=== PATIENT | male | born 1960 ===

== ENCOUNTER 2021-03-08 19:29 | Inpatient (IN) | payer OTHER ==
[2021-03-08] MEDS ORDERED: cefTRIAXone/NS 2 GM/100 ML 2 GM/100 ML BAG IV ONE (20:15)
[2021-03-08] MEDS ORDERED: AZITHROMYCIN/NS 500 MG/250 ML 500 MG/250 ML BAG IV ONE (20:15)
[2021-03-08] MEDS ORDERED: SODIUM CHLORIDE 0.9% 500 ML 500 ML IV ONE (20:15)
[2021-03-08 21:07] LABS: Hematocrit 49.2 % (35.5-45.6); Hemoglobin 15.7 gm/dl (11.8-15.2); Mean Corpuscular HGB Conc 32 % (32-34); Mean Corpuscular Volume 90 fl (84-94); Platelet Count 365 K/mm3 (140-440); Red Blood Count 5.44 M/mm3 (3.65-5.03); Red Cell Distribution Width 14.3 % (13.2-15.2)
[2021-03-08 21:18] LABS: INR 1.17 (0.87-1.13)
--- NOTE | 2021-03-08 21:19 | XRay Report ---
CHEST 1 VIEW 03/08/2021 8:12 PM INDICATION / CLINICAL INFORMATION: hypoxia. COMPARISON: None available. FINDINGS: SUPPORT DEVICES: None. HEART / MEDIASTINUM: No significant abnormality. LUNGS / PLEURA: Mid/lower lung airspace opacities are present bilaterally. No significant pleural eff usion. No pneumothorax. ADDITIONAL FINDINGS: No significant additional findings. IMPRESSION: Suspected bilateral pneumonia. Continued radiographic follow-up to resolution is recommended. Signer Name: Sergio Gutierrez MD Signed: 03/08/2021 9:14 PM Workstation Name: [id number]
--- NOTE | 2021-03-08 21:31 | Emergency Department Report ---
ED Shortness of Breath HPI - General Stated Complaint: Time Seen by Provider: 03/08/21 20:10 - History of Present Illness Initial Comments: Patient is a 61-year-old male with past medical history of hypertension and diabetes who is presenting with shortness of breath and hypoxia. Patient has been feeling ill for approximately a week. Patient was confused and paramedics were called. Patient's oxygen saturation levels were in the low 70s. 88-90% O2 sat on a NRB mask. Patient does state he has had some cough was unable to give much additional history on arrival. Denies nausea vomiting diarrhea. Patient has not had a COVID test - Related Data Allergies Allergy/AdvReac Type Severity Reaction Status Date / Time No Known Allergies Allergy Verified 03/08/21 20:25 ED Review of Systems ROS: Stated complaint: Other details as noted in HPI Comment: All other systems reviewed and negative ED Physical Exam - General General appearance: alert, in distress, other (mild confusion) - Head Head exam: Present: atraumatic, normocephalic - Eye Eye exam: Present: normal appearance, PERRL, EOMI - ENT ENT exam: Present: mucous membranes moist - Neck Neck exam: Present: normal inspection - Respiratory Respiratory exam: Present: respiratory distress, rhonchi. Absent: normal lung sounds bilaterally, wheezes, rales - Cardiovascular Cardiovascular Exam: Present: normal rhythm, tachycardia, normal heart sounds. Absent: systolic murmur, diastolic murmur, rubs, gallop - GI/Abdominal GI/Abdominal exam: Present: soft, normal bowel sounds. Absent: distended, tenderness, guarding - Rectal Rectal exam: Present: deferred - Extremities Exam Extremities exam: Present: normal inspection - Back Exam Back exam: Present: normal inspection - Neurological Exam Neurological exam: Present: alert, oriented X3 - Psychiatric Psychiatric exam: Present: normal affect, normal mood - Skin Skin exam: Present: warm, dry, intact, normal color. Absent: rash ED Course Vital Signs 03/08/21 19:30 Temperature 98.4 F Pulse Rate 108 H Respiratory 30 H Rate Blood Pressure 130/86 [Right] O2 Sat by Pulse 88 Oximetry ED Medical Decision Making - Lab Data Result diagrams: 03/08/21 20:24 03/08/21 20:24 Lab Results 03/08/21 03/08/21 03/08/21 Range/Units 20:24 20:24 20:24 WBC 22.6 H (4.5-11.0) K/mm3 RBC 5.44 H (3.65-5.03) M/mm3 Hgb 15.7 H (11.8-15.2) gm/dl Hct 49.2 H (35.5-45.6) % MCV 90 (84-94) fl MCH 29 (28-32) pg MCHC 32 (32-34) % RDW 14.3 (13.2-15.2) % Plt Count 365 (140-440) K/mm3 Add Manual Diff Complete Total Counted 100 Seg Neuts % (Manual) 83.0 H (40.0-70.0) % Band Neutrophils % 0 % Lymphocytes % (Manual) 9.0 L (13.4-35.0) % Reactive Lymphs % (Man) 0 % Monocytes % (Manual) 8.0 H (0.0-7.3) % Eosinophils % (Manual) 0 (0.0-4.3) % Basophils % (Manual) 0 (0.0-1.8) % Metamyelocytes % 0 % Myelocytes % 0 % Promyelocytes % 0 % Blast Cells % 0 % Nucleated RBC % Not Reportable Seg Neutrophils # Man 18.8 H (1.8-7.7) K/mm3 Band Neutrophils # 0.0 K/mm3 Lymphocytes # (Manual) 2.0 (1.2-5.4) K/mm3 Abs React Lymphs (Man) 0.0 K/mm3 Monocytes # (Manual) 1.8 H (0.0-0.8) K/mm3 Eosinophils # (Manual) 0.0 (0.0-0.4) K/mm3 Basophils # (Manual) 0.0 (0.0-0.1) K/mm3 Metamyelocytes # 0.0 K/mm3 Myelocytes # 0.0 K/mm3 Promyelocytes # 0.0 K/mm3 Blast Cells # 0.0 K/mm3 WBC Morphology Not Reportable Hypersegmented Neuts Not Reportable Hyposegmented Neuts Not Reportable Hypogranular Neuts Not Reportable Smudge Cells Not Reportable Toxic Granulation Not Reportable Toxic Vacuolation Not Reportable Dohle Bodies Not Reportable Pelger-Huet Anomaly Not Reportable Mely Rods Not Reportable Platelet Estimate Not Reportable Clumped Platelets Not Reportable Plt Clumps, EDTA Not Reportable Large Platelets Not Reportable Giant Platelets Not Reportable Platelet Satelliting Not Reportable Plt Morphology Comment Not Reportable RBC Morphology Normal Dimorphic RBCs Not Reportable Polychromasia Not Reportable Hypochromasia Not Reportable Poikilocytosis Not Reportable Anisocytosis Not Reportable Microcytosis Not Reportable Macrocytosis Not Reportable Spherocytes Not Reportable Pappenheimer Bodies Not Reportable Sickle Cells Not Reportable Target Cells Not Reportable Tear Drop Cells Not Reportable Ovalocytes Not Reportable Helmet Cells Not Reportable [place] Bodies Not Reportable [place] Rings Not Reportable [place] Cells Not Reportable Bite Cells Not Reportable Crenated Cell Not Reportable Elliptocytes Not Reportable Acanthocytes (Spur) Not Reportable Rouleaux Not Reportable Hemoglobin C Crystals Not Reportable Schistocytes Not Reportable Malaria parasites Not Reportable Shaheen Bodies Not Reportable Hem Pathologist Commnt No PT 16.1 H (12.2-14.9) Sec. INR 1.17 H (0.87-1.13) APTT 28.0 (24.2-36.6) Sec. D-Dimer > 71318 H (0-234) ng/mlDDU Sodium 136 L (137-145) mmol/L Potassium 4.0 (3.6-5.0) mmol/L Chloride 93.9 L (98-107) mmol/L Carbon Dioxide 27 (22-30) mmol/L Anion Gap 19 mmol/L BUN 29 H (9-20) mg/dL Creatinine 1.3 (0.8-1.3) mg/dL Estimated GFR 56 ml/min BUN/Creatinine Ratio 22 % Glucose 208 H (75-100) mg/dL Lactic Acid (0.7-2.0) mmol/L Calcium 9.8 (8.4-10.2) mg/dL Ferritin (30.0-300.0) ng/mL Total Bilirubin 0.80 (0.1-1.2) mg/dL AST 34 (5-40) units/L ALT 35 (7-56) units/L Alkaline Phosphatase 96 (35-129) units/L Lactate Dehydrogenase 624 H (91-180) units/L C-Reactive Protein 18.00 H (0.00-1.30) mg/dL NT-Pro-B Natriuret Pep 1053 H (0-900) pg/mL Total Protein 8.0 (6.3-8.2) g/dL Albumin 3.9 (3.9-5) g/dL Albumin/Globulin Ratio 1.0 % 03/08/21 03/08/21 Range/Units 20:24 20:24 WBC (4.5-11.0) K/mm3 RBC (3.65-5.03) M/mm3 Hgb (11.8-15.2) gm/dl Hct (35.5-45.6) % MCV (84-94) fl MCH (28-32) pg MCHC (32-34) % RDW (13.2-15.2) % Plt Count (140-440) K/mm3 Add Manual Diff Total Counted Seg Neuts % (Manual) (40.0-70.0) % Band Neutrophils % % Lymphocytes % (Manual) (13.4-35.0) % Reactive Lymphs % (Man) % Monocytes % (Manual) (0.0-7.3) % Eosinophils % (Manual) (0.0-4.3) % Basophils % (Manual) (0.0-1.8) % Metamyelocytes % % Myelocytes % % Promyelocytes % % Blast Cells % % Nucleated RBC % Seg Neutrophils # Man (1.8-7.7) K/mm3 Band Neutrophils # K/mm3 Lymphocytes # (Manual) (1.2-5.4) K/mm3 Abs React Lymphs (Man) K/mm3 Monocytes # (Manual) (0.0-0.8) K/mm3 Eosinophils # (Manual) (0.0-0.4) K/mm3 Basophils # (Manual) (0.0-0.1) K/mm3 Metamyelocytes # K/mm3 Myelocytes # K/mm3 Promyelocytes # K/mm3 Blast Cells # K/mm3 WBC Morphology Hypersegmented Neuts Hyposegmented Neuts Hypogranular Neuts Smudge Cells Toxic Granulation Toxic Vacuolation Dohle Bodies Pelger-Huet Anomaly Mely Rods Platelet Estimate Clumped Platelets Plt Clumps, EDTA Large Platelets Giant Platelets Platelet Satelliting Plt Morphology Comment RBC Morphology Dimorphic RBCs Polychromasia Hypochromasia Poikilocytosis Anisocytosis Microcytosis Macrocytosis Spherocytes Pappenheimer Bodies Sickle Cells Target Cells Tear Drop Cells Ovalocytes Helmet Cells [place] Bodies [place] Rings Minerv[place] Cells Bite Cells Crenated Cell Elliptocytes Acanthocytes (Spur) Rouleaux Hemoglobin C Crystals Schistocytes Malaria parasites Shaheen Bodies Hem Pathologist Commnt PT (12.2-14.9) Sec. INR (0.87-1.13) APTT (24.2-36.6) Sec. D-Dimer (0-234) ng/mlDDU Sodium (137-145) mmol/L Potassium (3.6-5.0) mmol/L Chloride (98-107) mmol/L Carbon Dioxide (22-30) mmol/L Anion Gap mmol/L BUN (9-20) mg/dL Creatinine (0.8-1.3) mg/dL Estimated GFR ml/min BUN/Creatinine Ratio % Glucose (75-100) mg/dL Lactic Acid 2.10 H* (0.7-2.0) mmol/L Calcium (8.4-10.2) mg/dL Ferritin 877.5 H (30.0-300.0) ng/mL Total Bilirubin (0.1-1.2) mg/dL AST (5-40) units/L ALT (7-56) units/L Alkaline Phosphatase (35-129) units/L Lactate Dehydrogenase (91-180) units/L C-Reactive Protein (0.00-1.30) mg/dL NT-Pro-B Natriuret Pep (0-900) pg/mL Total Protein (6.3-8.2) g/dL Albumin (3.9-5) g/dL Albumin/Globulin Ratio % - EKG Data -: EKG Interpreted by Ct - EKG Data 03/08/21 21:30 EKG shows a sinus rhythm at a rate of 94. [place] is normal intervals are normal. Evidence of LVH. No ST segment elevation or depression. Time of interpretation 2114 - Radiology Data CHEST 1 VIEW 03/08/2021 8:12 PM INDICATION / CLINICAL INFORMATION: hypoxia. COMPARISON: None available. FINDINGS: SUPPORT DEVICES: None. HEART / MEDIASTINUM: No significant abnormality. LUNGS / PLEURA: Mid/lower lung airspace opacities are present bilaterally. No significant pleural effusion. No pneumothorax. ADDITIONAL FINDINGS: No significant additional findings. IMPRESSION: Suspected bilateral pneumonia. Continued radiographic follow-up to resolution is recommended. Signer Name: Sergio Gutierrez MD Signed: 03/08/2021 9:14 PM Workstation Name: [id number] CTA chest with contrast INDICATION : Hypoxia, significantly elevated D-dimer. TECHNIQUE: Axial imaging performed through the chest, with contrast bolus timing set to maximize opacification of the pulmonary arteries. 3-plane MIP reformatted images were obtained. All CT scans at this location are performed using CT dose reduction for ALARA by means of automated exposure control. 100 mL of intravenous contrast administered. COMPARISON: None FINDINGS: Bolus/PTE: Contrast bolus timing is adequate; however, there is considerable motion artifact which limits the quality of the exam. No definite filling defect identified to suggest PTE. Mediastinum: Normal heart size. Shoddy mediastinal lymph nodes. Lungs: Severe patchy multifocal groundglass airspace disease. Upper abdomen: Limited imaging of the upper abdomen shows nothing acute. Bones: Degenerative changes in the spine with nothing acute. IMPRESSION: 1. Motion limited exam with no gross PTE identified. 2. Severe patchy multifocal groundglass airspace disease, most commonly seen with an atypical etiology such as viral pneumonia. Signer Name: Ty Callahan MD Signed: 03/09/2021 12:41 AM Workstation Name: [id number] - Medical Decision Making Patient hypoxic even on a nonrebreather at 88%. Patient placed on BiPAP and his gait has a better O2 sat and his alertness is improved as well. Patient with by lateral patchy infiltrates in all lobes consistent with COVID-pneumonia. COVID testing will be done in the morning. Patient given Rocephin azithromycin and low-dose Decadron since he is diabetic. Patient to be admitted to the hospital service. Critical Care Time: Yes (30) Critical care attestation.: If time is entered above; I have spent that time in minutes in the direct care of this critically ill patient, excluding procedure time. ED Disposition Clinical Impression: Acute respiratory distress, Hypoxia, Suspected COVID-19 virus infection Disposition: ADMITTED INPATIENT Is pt being admited?: Yes Does the pt Need Aspirin: No Condition: Stable Time of Disposition: 00:54
[2021-03-08 21:50] LABS: Basophils % (Manual) 0 % (0.0-1.8); Eosinophils % (Manual) 0 % (0.0-4.3); RBC Morphology Normal; Total Cells Counted 100
[2021-03-08 21:52] LABS: Albumin 3.9 g/dL (3.9-5); Calcium 9.8 mg/dL (8.4-10.2)
[2021-03-08] MEDS ORDERED: SODIUM CHLORIDE 0.9% 1000 ML 1,000 ML IV ONE (22:35)
--- NOTE | 2021-03-09 00:45 | Cat Scan Report ---
CTA chest with contrast INDICATION : Hypoxia, significantly elevated D-dimer. TECHNIQUE: Axial imaging performed through the chest, with contrast bolus timing set to maximize opa cification of the pulmonary arteries. 3-plane MIP reformatted images were obtained. All CT scans at this location are performed using CT dose reduction for ALARA by means of automated exposure control. 100 mL of intravenous contrast administered. COMPARISON: None FINDINGS: Bolus/PTE: Contrast bolus timing is adequate; however, there is considerable motion artifact which l imits the quality of the exam. No definite filling defect identified to suggest PTE. Mediastinum: Normal heart size. Shoddy mediastinal lymph nodes. Lungs: Severe patchy multifocal groundglass airspace disease. Upper abdomen: Limited imaging of the upper abdomen shows nothing acute. Bones: Degenerative changes in the spine with nothing acute. IMPRESSION: 1. Motion limited exam with no gross PTE identified. 2. Severe patchy multifocal groundglass airspace disease, most commonly seen with an atypical etiolog y such as viral pneumonia. Signer Name: Ty Callahan MD Signed: 03/09/2021 12:41 AM Workstation Name: [id number]
[2021-03-09] MEDS ORDERED: dexAMETHasone 20 MG/5 ML VIAL IV ONE (00:51)
[2021-03-09] MEDS ORDERED: HYDROmorphone 1 MG/1 ML INJ IV PRN (01:26)
[2021-03-09] MEDS ORDERED: ALBUTEROL 2.5 MG/3 ML NEBU IH PRN (01:26)
[2021-03-09] MEDS ORDERED: MORPHINE 2 MG/1 ML INJ IV PRN (01:26)
[2021-03-09] MEDS ORDERED: DEXTROSE 50% IN WATER (25GM) 50 ML SYRINGE IV PRN (01:26)
--- NOTE | 2021-03-09 01:34 | History and Physical Report ---
History of Present Illness Date of examination: 03/09/21 Date of admission: 03/09/21 Chief complaint: Shortness of breath History of present illness: 61-year-old male with past medical history of hypertension and diabetes was brought to the emergency room because of shortness of breath and hypoxia. Patient has been feeling ill for approximately a week. Patient was confused and paramedics were called. Patient's oxygen saturation levels were in the low 70s. 88-90% O2 sat on a NRB mask. Patient does state he has had some cough was unable to give much additional history on arrival. Denies nausea vomiting diarrhea. Patient has not had a COVID test Patient hypoxic even on a nonrebreather at 88%. Patient placed on BiPAP and his gait has a better O2 sat and his alertness is improved as well. Patient with by lateral patchy infiltrates in all lobes consistent with COVID-pneumonia. COVID testing is ordered. Patient given Rocephin azithromycin and low-dose Decadron since he is diabetic. Patient to be admitted to the hospital service. Past History Past Medical History: diabetes, hypertension Medications and Allergies Allergies Allergy/AdvReac Type Severity Reaction Status Date / Time No Known Allergies Allergy Verified 03/08/21 20:25 Review of Systems All systems: negative Constitutional: malaise, lethargy Cardiovascular: shortness of breath, dyspnea on exertion Respiratory: cough, shortness of breath, dyspnea on exertion Exam - Constitutional Vitals: Temp Pulse Resp BP Pulse Ox 98.4 F 108 H 30 H 130/86 88 03/08/21 19:30 03/08/21 19:30 03/08/21 19:30 03/08/21 19:30 03/08/21 19:30 General appearance: Present: mild distress, well-nourished - EENT Eyes: Present: PERRL ENT: hearing intact, clear oral mucosa - Neck Neck: Present: supple, normal ROM - Respiratory Respiratory effort: normal Respiratory: bilateral: diminished - Cardiovascular Heart Sounds: Present: S1 & S2. Absent: rub, click - Extremities Extremities: pulses symmetrical, No edema Peripheral Pulses: within normal limits - Abdominal General gastrointestinal: Present: soft, non-tender, non-distended, normal bowel sounds Male genitourinary: Present: normal - Integumentary Integumentary: Present: clear, warm, dry - Musculoskeletal Musculoskeletal: gait normal, strength equal bilaterally - Psychiatric Psychiatric: appropriate mood/affect, intact judgment & insight - Neurologic Neurologic: CNII-XII intact, moves all extremities Results - Labs CBC & Chem 7: 03/08/21 20:24 03/08/21 20:24 Labs: Laboratory Last Values WBC 22.6 K/mm3 (4.5-11.0) H 03/08/21 20:24 RBC 5.44 M/mm3 (3.65-5.03) H 03/08/21 20:24 Hgb 15.7 gm/dl (11.8-15.2) H 03/08/21 20:24 Hct 49.2 % (35.5-45.6) H 03/08/21 20:24 MCV 90 fl (84-94) 03/08/21 20:24 MCH 29 pg (28-32) 03/08/21 20:24 MCHC 32 % (32-34) 03/08/21 20:24 RDW 14.3 % (13.2-15.2) 03/08/21 20:24 Plt Count 365 K/mm3 (140-440) 03/08/21 20:24 Add Manual Diff Complete 03/08/21 20:24 Total Counted 100 03/08/21 20:24 Seg Neuts % (Manual) 83.0 % (40.0-70.0) H 03/08/21 20:24 Band Neutrophils % 0 % 03/08/21 20:24 Lymphocytes % (Manual) 9.0 % (13.4-35.0) L 03/08/21 20:24 Reactive Lymphs % (Man) 0 % 03/08/21 20:24 Monocytes % (Manual) 8.0 % (0.0-7.3) H 03/08/21 20:24 Eosinophils % (Manual) 0 % (0.0-4.3) 03/08/21 20:24 Basophils % (Manual) 0 % (0.0-1.8) 03/08/21 20:24 Metamyelocytes % 0 % 03/08/21 20:24 Myelocytes % 0 % 03/08/21 20:24 Promyelocytes % 0 % 03/08/21 20:24 Blast Cells % 0 % 03/08/21 20:24 Nucleated RBC % Not Reportable 03/08/21 20:24 Seg Neutrophils # Man 18.8 K/mm3 (1.8-7.7) H 03/08/21 20:24 Band Neutrophils # 0.0 K/mm3 03/08/21 20:24 Lymphocytes # (Manual) 2.0 K/mm3 (1.2-5.4) 03/08/21 20:24 Abs React Lymphs (Man) 0.0 K/mm3 03/08/21 20:24 Monocytes # (Manual) 1.8 K/mm3 (0.0-0.8) H 03/08/21 20:24 Eosinophils # (Manual) 0.0 K/mm3 (0.0-0.4) 03/08/21 20:24 Basophils # (Manual) 0.0 K/mm3 (0.0-0.1) 03/08/21 20:24 Metamyelocytes # 0.0 K/mm3 03/08/21 20:24 Myelocytes # 0.0 K/mm3 03/08/21 20:24 Promyelocytes # 0.0 K/mm3 03/08/21 20:24 Blast Cells # 0.0 K/mm3 03/08/21 20:24 WBC Morphology Not Reportable 03/08/21 20:24 Hypersegmented Neuts Not Reportable 03/08/21 20:24 Hyposegmented Neuts Not Reportable 03/08/21 20:24 Hypogranular Neuts Not Reportable 03/08/21 20:24 Smudge Cells Not Reportable 03/08/21 20:24 Toxic Granulation Not Reportable 03/08/21 20:24 Toxic Vacuolation Not Reportable 03/08/21 20:24 Dohle Bodies Not Reportable 03/08/21 20:24 Pelger-Huet Anomaly Not Reportable 03/08/21 20:24 Mely Rods Not Reportable 03/08/21 20:24 Platelet Estimate Not Reportable 03/08/21 20:24 Clumped Platelets Not Reportable 03/08/21 20:24 Plt Clumps, EDTA Not Reportable 03/08/21 20:24 Large Platelets Not Reportable 03/08/21 20:24 Giant Platelets Not Reportable 03/08/21 20:24 Platelet Satelliting Not Reportable 03/08/21 20:24 Plt Morphology Comment Not Reportable 03/08/21 20:24 RBC Morphology Normal 03/08/21 20:24 Dimorphic RBCs Not Reportable 03/08/21 20:24 Polychromasia Not Reportable 03/08/21 20:24 Hypochromasia Not Reportable 03/08/21 20:24 Poikilocytosis Not Reportable 03/08/21 20:24 Anisocytosis Not Reportable 03/08/21 20:24 Microcytosis Not Reportable 03/08/21 20:24 Macrocytosis Not Reportable 03/08/21 20:24 Spherocytes Not Reportable 03/08/21 20:24 Pappenheimer Bodies Not Reportable 03/08/21 20:24 Sickle Cells Not Reportable 03/08/21 20:24 Target Cells Not Reportable 03/08/21 20:24 Tear Drop Cells Not Reportable 03/08/21 20:24 Ovalocytes Not Reportable 03/08/21 20:24 Helmet Cells Not Reportable 03/08/21 20:24 [place] Bodies Not Reportable 03/08/21 20:24 [place] Rings Not Reportable 03/08/21 20:24 [place] Cells Not Reportable 03/08/21 20:24 Bite Cells Not Reportable 03/08/21 20:24 Crenated Cell Not Reportable 03/08/21 20:24 Elliptocytes Not Reportable 03/08/21 20:24 Acanthocytes (Spur) Not Reportable 03/08/21 20:24 Rouleaux Not Reportable 03/08/21 20:24 Hemoglobin C Crystals Not Reportable 03/08/21 20:24 Schistocytes Not Reportable 03/08/21 20:24 Malaria parasites Not Reportable 03/08/21 20:24 Shaheen Bodies Not Reportable 03/08/21 20:24 Hem Pathologist Commnt No 03/08/21 20:24 PT 16.1 Sec. (12.2-14.9) H 03/08/21 20:24 INR 1.17 (0.87-1.13) H 03/08/21 20:24 APTT 28.0 Sec. (24.2-36.6) 03/08/21 20:24 D-Dimer > 69348 ng/mlDDU (0-234) H 03/08/21 20:24 Sodium 136 mmol/L (137-145) L 03/08/21 20:24 Potassium 4.0 mmol/L (3.6-5.0) 03/08/21 20:24 Chloride 93.9 mmol/L (98-107) L 03/08/21 20:24 Carbon Dioxide 27 mmol/L (22-30) 03/08/21 20:24 Anion Gap 19 mmol/L 03/08/21 20:24 BUN 29 mg/dL (9-20) H 03/08/21 20:24 Creatinine 1.3 mg/dL (0.8-1.3) 03/08/21 20:24 Estimated GFR 56 ml/min 03/08/21 20:24 BUN/Creatinine Ratio 22 % 03/08/21 20:24 Glucose 208 mg/dL (75-100) H 03/08/21 20:24 Lactic Acid 1.90 mmol/L (0.7-2.0) 03/08/21 23:51 Calcium 9.8 mg/dL (8.4-10.2) 03/08/21 20:24 Ferritin 877.5 ng/mL (30.0-300.0) H 03/08/21 20:24 Total Bilirubin 0.80 mg/dL (0.1-1.2) 03/08/21 20:24 AST 34 units/L (5-40) 03/08/21 20:24 ALT 35 units/L (7-56) 03/08/21 20:24 Alkaline Phosphatase 96 units/L (35-129) 03/08/21 20:24 Lactate Dehydrogenase 624 units/L (91-180) H 03/08/21 20:24 C-Reactive Protein 18.00 mg/dL (0.00-1.30) H 03/08/21 20:24 NT-Pro-B Natriuret Pep 1053 pg/mL (0-900) H 03/08/21 20:24 Total Protein 8.0 g/dL (6.3-8.2) 03/08/21 20:24 Albumin 3.9 g/dL (3.9-5) 03/08/21 20:24 Albumin/Globulin Ratio 1.0 % 03/08/21 20:24 - Imaging and Cardiology Chest x-ray: report reviewed Assessment and Plan VTE prophylaxis?: Chemical Plan of care discussed with patient/family: Yes - Patient Problems (1) Acute respiratory failure Current Visit: Yes Status: Acute Plan to address problem: Admit the patient to the [facility]. Patient is on BiPAP. DuoNeb nebulizer every 4 hours. Albuterol by nebulizer every 4 hours as needed. Rocephin 2 g IV daily. Zithromax 500 mg IV daily. Decadron 6 mg IV daily. Blood and sputum culture. We will send a COVID PCR. Follow COVID inflammatory marker. We will consult pulmonary as well as infectious disease for further evaluation and treatment (2) Suspected COVID-19 virus infection Current Visit: Yes Status: Acute Plan to address problem: Rocephin 2 g IV daily. Zithromax 500 mg IV daily. Decadron 6 mg IV daily. Blood and sputum culture. We will send a COVID PCR. Follow COVID inflammatory marker. We will consult pulmonary as well as infectious disease for further evaluation and treatment (3) Diabetes Current Visit: Yes Status: Acute Plan to address problem: 1800 kcal ADA diet. Humalog sliding scale moderate reviewed with Accu-Chek before meals and at bedtime. Continue home medication. Diabetic education (4) Hypertension Current Visit: Yes Status: Acute Plan to address problem: Hydralazine 10 mg IV every 6 hours as needed. We continued the home medication (5) Hypoxia Current Visit: Yes Status: Acute Plan to address problem: Patient is on BiPAP. DuoNeb nebulizer every 4 hours. Albuterol by nebulizer every 4 hours as needed. Decadron 6 mg IV daily. We will send a COVID PCR. Follow COVID inflammatory marker. We will consult pulmonary as well as infectious disease for further evaluation and treatment (6) DVT prophylaxis Current Visit: Yes Status: Acute Plan to address problem: Heparin 5000 units subcu every 8 hours for DVT prophylaxis. Pepcid 20 mg p.o. twice daily for GI prophylaxis. Patient is a full code
[2021-03-09] MEDS ORDERED: cefTRIAXone/NS 2 GM/100 ML 2 GM/100 ML BAG IV SCH ×2 (02:00→22:00)
[2021-03-09] MEDS ORDERED: dexAMETHasone 4 MG/ML VIAL ONE (03:31)
[2021-03-09] MEDS: IPRATROPIUM/ALBUTEROL SULFATE 3 ML AMPUL.NEB IH SCH ×4 (03:45→20:55)
[2021-03-09 04:17] LABS: Bacteria,Urine 1+ /HPF (Negative); Bilirubin,Urine NEG (Negative); Blood,Urine MOD (Negative); Color,Urine Yellow (Yellow); Mucus,Urine FEW /HPF
[2021-03-09] MEDS ORDERED: HEPARIN 5,000 UNIT/1 ML VIAL SUB-Q SCH (06:00)
[2021-03-09] MEDS: INSULIN LISPRO 100 UNIT/ML SUB-Q SCH ×4 (07:54→21:17)
[2021-03-09] MEDS ORDERED: AZITHROMYCIN/NS 500 MG/250 ML 500 MG/250 ML BAG IV SCH (10:00)
[2021-03-09] MEDS: ENOXAPARIN 100 MG/1 ML INJ SUB-Q SCH ×2 (10:54→21:16)
[2021-03-09] MEDS: dexAMETHasone 4 MG/ML VIAL IV SCH (10:54)
[2021-03-09] MEDS: FAMOTIDINE 20 MG TAB PO SCH ×2 (10:55→21:17)
--- NOTE | 2021-03-09 10:59 | Electrocardiograph Report ---
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
[2021-03-09] MEDS ORDERED: REMDESIVIR 200 MG in SODIUM CHLORIDE 0.9% 250ML 250 ML IV ONE (14:40)
--- NOTE | 2021-03-09 14:40 | Consultation ---
History of Present Illness - Reason for Consult Consult date: 03/09/21 COVID-19 PUI Requesting physician: ROCIO TRISTAN - History of Present Illness The patient is a 61-year-old male with diabetes, hypertension admitted to the hospital with complaints of shortness of breath and feeling weak for the last 1 week. Upon eval by paramedics, noted to be hypoxic and confused, was placed on nonrebreather and brought to ER. Chest x-ray showed bilateral patchy infiltrates concerning for COVID-19 pneumonia. Patient has been hospitalized. No fever. Currently placed on BiPAP. Initial labs showed WBC 22.6, creatinine 1.3, ferritin 877, CRP 18.0, LDH 624, procalcitonin 0.18. D-dimer >10k. CTA negative for pulmonary embolism, severe patchy groundglass opacities. Review of Systems: reviewed in the chart, unable to obtain, minimize risk of transmission Past History Past Medical History: diabetes, hypertension Family history: hypertension Medications and Allergies Allergies Allergy/AdvReac Type Severity Reaction Status Date / Time No Known Allergies Allergy Verified 03/08/21 20:25 Active Meds: Active Medications Acetaminophen (Acetaminophen 325 Mg Tab) 650 mg PO Q4H PRN PRN Reason: Pain MILD(1-3)/Fever >100.5/RAYO Albuterol (Albuterol 2.5 Mg/3 Ml Nebu) 2.5 mg IH Q4HRT PRN PRN Reason: Shortness Of Breath Albuterol/Ipratropium (Ipratropium/Albuterol Sulfate 3 Ml Ampul.Neb) 1 ampul IH Q6HRT [facility] Last Admin: 03/09/21 09:31 Dose: 1 ampul Azithromycin (Azithromycin 250 Mg Tab) 500 mg PO QHS [facility] Stop: 03/12/21 22:01 Dexamethasone (Dexamethasone 4 Mg/Ml Vial) 6 mg IV DAILY [facility] Stop: 03/18/21 10:01 Last Admin: 03/09/21 10:54 Dose: 6 mg Dextrose (Dextrose 50% In Water (25gm) 50 Ml Syringe) 0 ml IV Q30MIN PRN; Protocol PRN Reason: Hypoglycemia Enoxaparin Sodium (Enoxaparin 100 Mg/1 Ml Inj) 100 mg SUB-Q Q12HR [facility]; Protocol Last Admin: 03/09/21 10:54 Dose: 100 mg Famotidine (Famotidine 20 Mg Tab) 20 mg PO BID [facility] Last Admin: 03/09/21 10:55 Dose: Not Given Hydralazine HCl (Hydralazine 20 Mg/1 Ml Inj) 10 mg IV Q6H PRN PRN Reason: Blood Pressure Hydromorphone HCl (Hydromorphone 1 Mg/1 Ml Inj) 0.5 mg IV Q3H PRN PRN Reason: Pain , Severe (7-10) Ceftriaxone Sodium (Rocephin/Ns 2 Gm/100 Ml) 2 gm in 100 mls @ 200 mls/hr IV Q24HR@2200 [facility]; Protocol Insulin Human Lispro (Insulin Lispro 100 Unit/Ml) 0 unit SUB-Q ACHS [facility]; Protocol Last Admin: 03/09/21 14:14 Dose: Not Given Morphine Sulfate (Morphine 2 Mg/1 Ml Inj) 2 mg IV Q4H PRN PRN Reason: Pain, Moderate (4-6) Ondansetron HCl (Ondansetron 4 Mg/2 Ml Inj) 4 mg IV Q8H PRN PRN Reason: Nausea And Vomiting Sodium Chloride (Sodium Chloride 0.9% 10 Ml Flush Syringe) 10 ml IV BID [facility] Last Admin: 03/09/21 10:55 Dose: 10 ml Sodium Chloride (Sodium Chloride 0.9% 10 Ml Flush Syringe) 10 ml IV PRN PRN PRN Reason: LINE FLUSH Physical Examination - Physical Exam Narrative exam: Physical Exam (reviewed in chart to minimize risk of transmission) Constitutional: deferred Head, Ears, Nose: deferred Eyes: deferred Neck: deferred Oral: deferred Cardiovascular: deferred Respiratory: deferred GI: deferred Musculoskeletal: deferred Skin: deferred Hem/Lymphatic: deferred Psych: deferred Neurological: deferred - Constitutional Vitals: Vital Signs Temp Pulse Resp BP Pulse Ox 98.2 F 82 33 H 145/80 87 03/09/21 14:30 03/09/21 14:00 03/09/21 14:00 03/09/21 14:00 03/09/21 14:00 Temperature -Last 24 Hours Temperature 98.2 F Temperature 98.4 F Results - Labs CBC & Chem 7: 03/08/21 20:24 03/08/21 20:24 Labs: Abnormal lab results 03/08/21 03/08/21 03/08/21 Range/Units 20:24 20:24 20:24 WBC 22.6 H (4.5-11.0) K/mm3 RBC 5.44 H (3.65-5.03) M/mm3 Hgb 15.7 H (11.8-15.2) gm/dl Hct 49.2 H (35.5-45.6) % Seg Neuts % (Manual) 83.0 H (40.0-70.0) % Lymphocytes % (Manual) 9.0 L (13.4-35.0) % Monocytes % (Manual) 8.0 H (0.0-7.3) % Seg Neutrophils # Man 18.8 H (1.8-7.7) K/mm3 Monocytes # (Manual) 1.8 H (0.0-0.8) K/mm3 PT 16.1 H (12.2-14.9) Sec. INR 1.17 H (0.87-1.13) D-Dimer > 93693 H (0-234) ng/mlDDU Sodium 136 L (137-145) mmol/L Chloride 93.9 L (98-107) mmol/L BUN 29 H (9-20) mg/dL Glucose 208 H (75-100) mg/dL POC Glucose (70-105) mg/dL Lactic Acid (0.7-2.0) mmol/L Ferritin (30.0-300.0) ng/mL Lactate Dehydrogenase 624 H (91-180) units/L C-Reactive Protein 18.00 H (0.00-1.30) mg/dL NT-Pro-B Natriuret Pep 1053 H (0-900) pg/mL Ur Specific [employer] (1.003-1.030) 03/08/21 03/08/21 03/09/21 Range/Units 20:24 20:24 04:10 WBC (4.5-11.0) K/mm3 RBC (3.65-5.03) M/mm3 Hgb (11.8-15.2) gm/dl Hct (35.5-45.6) % Seg Neuts % (Manual) (40.0-70.0) % Lymphocytes % (Manual) (13.4-35.0) % Monocytes % (Manual) (0.0-7.3) % Seg Neutrophils # Man (1.8-7.7) K/mm3 Monocytes # (Manual) (0.0-0.8) K/mm3 PT (12.2-14.9) Sec. INR (0.87-1.13) D-Dimer (0-234) ng/mlDDU Sodium (137-145) mmol/L Chloride (98-107) mmol/L BUN (9-20) mg/dL Glucose (75-100) mg/dL POC Glucose (70-105) mg/dL Lactic Acid 2.10 H* (0.7-2.0) mmol/L Ferritin 877.5 H (30.0-300.0) ng/mL Lactate Dehydrogenase (91-180) units/L C-Reactive Protein (0.00-1.30) mg/dL NT-Pro-B Natriuret Pep (0-900) pg/mL Ur Specific [employer] 1.041 H (1.003-1.030) 03/09/21 03/09/21 Range/Units 07:46 13:01 WBC (4.5-11.0) K/mm3 RBC (3.65-5.03) M/mm3 Hgb (11.8-15.2) gm/dl Hct (35.5-45.6) % Seg Neuts % (Manual) (40.0-70.0) % Lymphocytes % (Manual) (13.4-35.0) % Monocytes % (Manual) (0.0-7.3) % Seg Neutrophils # Man (1.8-7.7) K/mm3 Monocytes # (Manual) (0.0-0.8) K/mm3 PT (12.2-14.9) Sec. INR (0.87-1.13) D-Dimer (0-234) ng/mlDDU Sodium (137-145) mmol/L Chloride (98-107) mmol/L BUN (9-20) mg/dL Glucose (75-100) mg/dL POC Glucose 191 H 182 H (70-105) mg/dL Lactic Acid (0.7-2.0) mmol/L Ferritin (30.0-300.0) ng/mL Lactate Dehydrogenase (91-180) units/L C-Reactive Protein (0.00-1.30) mg/dL NT-Pro-B Natriuret Pep (0-900) pg/mL Ur Specific [employer] (1.003-1.030) - Imaging and Cardiology Chest x-ray: report reviewed, image reviewed (b/l pna) Assessment and Plan Cultures: SARS CoV2 PCR: Pending 03/08/2021 blood culture: In process A/P: 61-year-old male with diabetes, hypertension admitted to the hospital with complaints of shortness of breath and feeling weak for the last 1 week: #Sepsis secondary to bilateral pneumonia: Highly concerning for COVID-19. Elevated inflammatory markers. WBC 22.6, creatinine 1.3, ferritin 877, CRP 18.0, LDH 624, procalcitonin 0.18. D-dimer >10k. CTA negative for pulmonary embolism, severe patchy groundglass opacities. #Acute hypoxic respiratory failure: Requiring BiPAP #DM #HTN Recs: -IV/PO Dexamethasone x 10 days -High suspicion for COVID-19, ordered IV remdesivir x 5 days -cause of leukocytosis is unclear, would hold off on Actemra at this time -prophylactic anticoagulation based on d-dimer per hospital protocol -procal is low, but high WBC, continue empiric abx for now -trend ferritin, d-dimer, CRP every 2-3 days Sangita Nicole MD, FACP, [facility] ([facility] O: [phone] F: [phone]
[2021-03-09 16:06] LABS: Alanine Aminotransferase 45 units/L (7-56); Albumin 3.4 g/dL (3.9-5); BUN/Creatinine Ratio 24; Blood Urea Nitrogen 29 mg/dL (9-20); Calcium 8.8 mg/dL (8.4-10.2); Hemolysis Index 12
--- NOTE | 2021-03-09 16:39 | Event Note ---
Date: 03/09/21 The patient was seen and evaluated today, and he was found to be hemodynamically stable. The patient is currently on BiPAP for possible COVID-19 pneumonia. He was started on Lovenox 1mg/kg for DVT ppx in the setting of d-dimer > 10,000. Infectious Disease was consulted. The patient is pending a TTE.
--- NOTE | 2021-03-09 17:27 | Consultation ---
History of Present Illness Consult date: 03/09/21 Requesting physician: ROCIO TRISTAN Reason for consult: pneumonia (COVID-19) History of present illness: PCCM CONSULT NOTE (Full dictation # [id number]) Please see dictated notes for full details Past History Past Medical History: diabetes, hypertension Family history: hypertension Medications and Allergies Allergies Allergy/AdvReac Type Severity Reaction Status Date / Time No Known Allergies Allergy Verified 03/08/21 20:25 Active Meds: Active Medications Acetaminophen (Acetaminophen 325 Mg Tab) 650 mg PO Q4H PRN PRN Reason: Pain MILD(1-3)/Fever >100.5/RAYO Albuterol (Albuterol 2.5 Mg/3 Ml Nebu) 2.5 mg IH Q4HRT PRN PRN Reason: Shortness Of Breath Albuterol/Ipratropium (Ipratropium/Albuterol Sulfate 3 Ml Ampul.Neb) 1 ampul IH Q6HRT [facility] Last Admin: 03/09/21 15:40 Dose: 1 ampul Azithromycin (Azithromycin 250 Mg Tab) 500 mg PO QHS [facility] Stop: 03/12/21 22:01 Dexamethasone (Dexamethasone 4 Mg/Ml Vial) 6 mg IV DAILY [facility] Stop: 03/18/21 10:01 Last Admin: 03/09/21 10:54 Dose: 6 mg Dextrose (Dextrose 50% In Water (25gm) 50 Ml Syringe) 0 ml IV Q30MIN PRN; Protocol PRN Reason: Hypoglycemia Enoxaparin Sodium (Enoxaparin 100 Mg/1 Ml Inj) 100 mg SUB-Q Q12HR [facility]; Protocol Last Admin: 03/09/21 10:54 Dose: 100 mg Famotidine (Famotidine 20 Mg Tab) 20 mg PO BID [facility] Last Admin: 03/09/21 10:55 Dose: Not Given Hydralazine HCl (Hydralazine 20 Mg/1 Ml Inj) 10 mg IV Q6H PRN PRN Reason: Blood Pressure Hydromorphone HCl (Hydromorphone 1 Mg/1 Ml Inj) 0.5 mg IV Q3H PRN PRN Reason: Pain , Severe (7-10) Ceftriaxone Sodium (Rocephin/Ns 2 Gm/100 Ml) 2 gm in 100 mls @ 200 mls/hr IV Q24HR@2200 [facility]; Protocol REMDESIVIR 200 mg/ Sodium (Chloride) 250 mls @ 500 mls/hr IV ONCE ONE Stop: 03/09/21 15:09 REMDESIVIR 100 mg/ Sodium (Chloride) 250 mls @ 500 mls/hr IV Q24HR@2100 [facility] Stop: 03/13/21 21:29 Insulin Human Lispro (Insulin Lispro 100 Unit/Ml) 0 unit SUB-Q ACHS [facility]; Protocol Last Admin: 03/09/21 14:14 Dose: Not Given Morphine Sulfate (Morphine 2 Mg/1 Ml Inj) 2 mg IV Q4H PRN PRN Reason: Pain, Moderate (4-6) Ondansetron HCl (Ondansetron 4 Mg/2 Ml Inj) 4 mg IV Q8H PRN PRN Reason: Nausea And Vomiting Sodium Chloride (Sodium Chloride 0.9% 10 Ml Flush Syringe) 10 ml IV BID [facility] Last Admin: 03/09/21 10:55 Dose: 10 ml Sodium Chloride (Sodium Chloride 0.9% 10 Ml Flush Syringe) 10 ml IV PRN PRN PRN Reason: LINE FLUSH Sodium Chloride (Sodium Chloride 0.9% 50 Ml Ivpb) 50 ml IV Q24HR@2100 [facility] Stop: 03/13/21 21:01 Physical Examination Vital signs: Vital Signs Temp Pulse Resp BP Pulse Ox 98.4 F 108 H 30 H 130/86 88 03/08/21 19:30 03/08/21 19:30 03/08/21 19:30 03/08/21 19:30 03/08/21 19:30 Results - Laboratory Findings CBC and BMP: 03/08/21 20:24 03/09/21 15:19 PT/INR, D-dimer PT 16.1 Sec. (12.2-14.9) H 03/08/21 20:24 INR 1.17 (0.87-1.13) H 03/08/21 20:24 D-Dimer > 92096 ng/mlDDU (0-234) H 03/08/21 20:24 Abnormal lab findings: Abnormal Labs 03/08/21 03/08/21 03/08/21 20:24 20:24 20:24 WBC 22.6 H RBC 5.44 H Hgb 15.7 H Hct 49.2 H Seg Neuts % (Manual) 83.0 H Lymphocytes % (Manual) 9.0 L Monocytes % (Manual) 8.0 H Seg Neutrophils # Man 18.8 H Monocytes # (Manual) 1.8 H PT 16.1 H INR 1.17 H D-Dimer > 52629 H Sodium 136 L Chloride 93.9 L BUN 29 H Glucose 208 H POC Glucose Lactic Acid Ferritin Lactate Dehydrogenase 624 H C-Reactive Protein 18.00 H NT-Pro-B Natriuret Pep 1053 H Albumin Ur Specific [place] Coronavirus (PCR) 03/08/21 03/08/21 03/09/21 20:24 20:24 04:10 WBC RBC Hgb Hct Seg Neuts % (Manual) Lymphocytes % (Manual) Monocytes % (Manual) Seg Neutrophils # Man Monocytes # (Manual) PT INR D-Dimer Sodium Chloride BUN Glucose POC Glucose Lactic Acid 2.10 H* Ferritin 877.5 H Lactate Dehydrogenase C-Reactive Protein NT-Pro-B Natriuret Pep Albumin Ur Specific [place] 1.041 H Coronavirus (PCR) 03/09/21 03/09/21 03/09/21 07:46 08:00 13:01 WBC RBC Hgb Hct Seg Neuts % (Manual) Lymphocytes % (Manual) Monocytes % (Manual) Seg Neutrophils # Man Monocytes # (Manual) PT INR D-Dimer Sodium Chloride BUN Glucose POC Glucose 191 H 182 H Lactic Acid Ferritin Lactate Dehydrogenase C-Reactive Protein NT-Pro-B Natriuret Pep Albumin Ur Specific [place] Coronavirus (PCR) Positive A 03/09/21 15:19 WBC RBC Hgb Hct Seg Neuts % (Manual) Lymphocytes % (Manual) Monocytes % (Manual) Seg Neutrophils # Man Monocytes # (Manual) PT INR D-Dimer Sodium Chloride BUN 29 H Glucose 214 H POC Glucose Lactic Acid Ferritin Lactate Dehydrogenase C-Reactive Protein NT-Pro-B Natriuret Pep Albumin 3.4 L Ur Specific [place] Coronavirus (PCR)
[2021-03-09 18:20] LABS: ABG Base Excess 2.2 mmol/L (-2.0-3.0); ABG HCO3 26.3 mmol/L (20.0-26.0); ABG Methemoglobin 0.8 % (0.0-1.5); ABG Oxygen Saturation 83.7 % (95.0-99.0); ABG PCO2 39.5 mm Hg; ABG PH 7.442 pH Units (7.350-7.450); ABG PO2 47.3 mm Hg (80.0-90.0)
[2021-03-09] MEDS: SODIUM CHLORIDE 0.9% 50 ML IVPB IV SCH (21:16)
[2021-03-09] MEDS: hydrALAZINE 20 MG/1 ML INJ IV PRN (21:46)
[2021-03-09] MEDS ORDERED: AZITHROMYCIN 250 MG TAB PO SCH (22:00)
--- NOTE | 2021-03-09 23:53 | Consultation ---
DATE OF CONSULTATION: 03/09/2021 PULMONARY CONSULT NOTE CONSULTING PHYSICIAN: Dr. Rodriguez. REASON FOR CONSULTATION: Acute hypoxemic respiratory failure, COVID-19 infection. CHIEF COMPLAINT AND HISTORY OF PRESENT ILLNESS: The patient is a now 61-year-old obese male with past medical history significant also for diabetes, brought into the Emergency Room because of shortness of breath and hypoxemia. He had been feeling ill for about a week. He admits to not being vaccinated against COVID-19 infection. EMS found him with O2 sats in the 70s. He had complained also of a cough, not able to give much more information. He denied any gross or streaky hemoptysis to me. In the Emergency Room, he required placement on bilevel positive airway pressure ventilation therapy at IPAP of 16, EPAP of 8 and 50% FiO2 continuously to get his O2 sats above 90%. We are asked to assist with management. Further evaluation in the Emergency Room revealed that he was indeed positive for COVID-19 infection. When I stopped by to see him, he was resting in bed, he remained on the BiPAP machine, work of breathing was still increased. He denied nausea. He denied vomiting or overt aspiration either now or prior to arrival. He denied any new-onset leg pain or swelling, either unilaterally or bilaterally or any history of venous thromboembolic phenomenon. He does deny also a history of tobacco use or abuse. This really is as much of the history of presentation as I have. PAST MEDICAL HISTORY: Again, obesity, hypertension, diabetes. PAST SURGICAL HISTORY: Unknown. MEDICATIONS: He was on at the time I stopped by to see him, according to the medication administration record included the following: Tylenol 650 mg p.o. q. 4 hours p.r.n. mild pain or fevers, albuterol 2.5 mg nebulized q. 4 hours p.r.n. shortness of breath, DuoNeb nebulizer treatments nebulized q. 6 hours, azithromycin 500 mg p.o. at bedtime, Rocephin 2 grams IV daily, Decadron 6 mg IV daily, Lovenox 100 mg subcutaneous q.12 hours, Pepcid 20 mg p.o. b.i.d., hydralazine 10 mg IV q. 6 hours p.r.n. elevated blood pressure, Dilaudid 0.5 mg IV q. 3 hours p.r.n. severe pain, insulin via sliding scale, morphine sulfate 2 mg IV q. 4 hours p.r.n. moderate pain, Zofran 4 mg IV q. 8 hours p.r.n. nausea and vomiting. He has been started on remdesivir therapy. ALLERGIES: No known drug allergies. DIET: Obese gentleman. Denies acute weight loss or gain in the preceding few weeks to months. FAMILY AND SOCIAL HISTORY: Lives in the community. Denies alcohol, tobacco or illicit drug use or abuse. FAMILY HISTORY: Otherwise unknown. REVIEW OF SYSTEMS: Difficult to obtain secondary to the patient's medical and mental condition. Since he has been here, no gross hematochezia or melena, no gross hematuria or dysuria. No hematemesis, no hemoptysis. He denies any chest pain, denies palpitations. Denies polydipsia, polyuria. Denies heat or cold intolerance. Complete 13-system review of system was obtained. Pertinent positives and/or negatives as in body of history above, otherwise noncontributory. PHYSICAL EXAMINATION: VITAL SIGNS: At presentation, he was afebrile at 98.4 degrees Fahrenheit, pulse of 108, respiratory rate of 30, blood pressure 130/86, O2 sats were 88%, inspired oxygen concentration at that time was not recorded. O2 sats were 97% at the time I saw him on the above BiPAP settings with a respiratory rate in the mid 30s. GENERAL: Again, he is an elderly, morbidly obese male. Normocephalic, atraumatic on the BiPAP machine with mildly increased respiratory effort at rest. HEAD, EYES, EARS, NOSE AND THROAT: Anicteric. No conjunctival erythema. Oropharynx was moist. No gross jugular venous distention. He had a BiPAP full face mask over his face. He does have a large neck circumference. Grossly, there were no palpable lymph nodes in the supraclavicular or submandibular lymph node chains. LUNGS: Auscultation of both lung mckinley, scant basilar rhonchi posteriorly. No active wheezing. Slightly prolonged expiratory phase. HEART: Sounds 1 and 2 are heard at the time of my evaluation, regular rate and rhythm, without overt rubs or murmurs. ABDOMEN: Soft, full, protuberant. Bowel sounds are positive. Nontender, no palpable hepatosplenomegaly. EXTREMITIES: Without overt digital clubbing or cyanosis. No pedal edema. Pedal pulses are 2+ bilaterally. NEUROLOGIC: Pupils were equal, round, about 4 mm, reactive to light. Extraocular muscles and movements were intact. He had spontaneous movements to all 4 extremities. SKIN: Normal turgor in the areas I examined without overt cellulitis or rash. Please see the wound care nurses' notes for full description of his skin. PSYCHIATRIC: Mood and affect appeared anxious. He seemed to have intact judgment and insight. LABORATORY DATA: From my review, white cell count 22,600, hemoglobin 15.7, hematocrit 49.4, platelet count was 365. No band forms on the manual differential. D-dimer greater than 10,000. INR 1.17. Serum sodium 136, potassium 4.0, chloride 94, bicarbonate 27, BUN 29, creatinine 1.3, glucose was 288. Lactic acid within normal limits. Ferritin elevated at 878. LDH up at 624. CRP up at 18.0. Procalcitonin unremarkable, within normal limits. Urinalysis was negative for nitrites and leukocyte esterase, 4 white cells per high power field. Coronavirus PCR testing was positive. Two sets of blood cultures are no growth to date. Chest x-ray shows borderline cardiomegaly, bibasilar predominant infiltrates, no gross pneumothorax, no gross bony fracture. A CT scan of the chest was done. It is a CT angiogram, however, unfortunately very poor contrast phase filling of the pulmonary arteries. There is a suggestion of filling defects consistent with pulmonary emboli, but again is very poor and the radiologist does not seem to see this or he does not report this. Otherwise, there are bilateral consolidative changes, ground glass opacification involving both lung mckinley and in particular at the bases. There is motion artifact and that makes interpretation less precise. ASSESSMENT: 1. Acute hypoxemic respiratory failure, on continuous noninvasive ventilation. 2. COVID-19 infection. 3. Bilateral pneumonia. 4. History of diabetes. 5. Obesity. 6. Hypertension. 7. Leukocytosis. 8. Possible venous thromboembolic phenomena with significantly elevated D-dimers. 9. History of diabetes with hyperglycemia. 10. Elevated serum inflammatory markers to include CRP levels, ferritin and LDH. PLAN: I will leave him on continuous bilevel positive airway pressure ventilation therapy at this time. I will get arterial blood gas to better evaluate his oxygenation and ventilation. Oxygen will be weaned to keep sats greater than or equal to about 90%. Aspiration precautions will be maintained. For now, we will continue with bilevel continuous BiPAP with a plan to ultimately transition to bedtime only use. I do agree with empiric community-acquired pneumonia therapy. We will treat him empirically for about 5 days. Infectious disease consultation has been placed appropriately. I will defer to them in terms of Actemra dosing. I do agree with current therapies. He will be on contact and airborne precautions. He will receive 5 days of remdesivir. He will receive 10 days of dexamethasone. We will follow cultures and see if there is going to be any benefit from Actemra and try and see if cultures remain negative. He is appropriately on GI prophylaxis, and he is fully anticoagulated. Flu and pneumonia vaccination will be addressed per protocol. Further interventions will depend on his progress through this hospitalization. Thank you very much for the consult, Dr. Rodriguez. We will follow along and make further recommendations as picture progresses/becomes clearer. He is critically ill, really on life-sustaining interventions including continuous noninvasive ventilation therapy, at very high risk of from cardiopulmonary system decompensation. At this time, I have spent about 35-40 minutes of critical care time without overlap and excluding any procedural time that may be necessary. TID: [id number] RECEIPT: [id number] KT/ERICA
[2021-03-10] MEDS: hydrALAZINE 20 MG/1 ML INJ IV PRN (03:56)
[2021-03-10 05:20] LABS: Hematocrit 46.2 % (35.5-45.6); Hemoglobin 14.9 gm/dl (11.8-15.2); Mean Corpuscular HGB Conc 32 % (32-34); Mean Corpuscular Volume 91 fl (84-94); Platelet Count 300 K/mm3 (140-440); Red Blood Count 5.07 M/mm3 (3.65-5.03); Red Cell Distribution Width 14.5 % (13.2-15.2)
[2021-03-10 05:36] LABS: Alanine Aminotransferase 34 units/L (7-56); Albumin 3.3 g/dL (3.9-5); BUN/Creatinine Ratio 32; Blood Urea Nitrogen 29 mg/dL (9-20); Hemolysis Index 51
[2021-03-10 06:08] LABS: ABG Base Excess 1.4 mmol/L (-2.0-3.0); ABG Methemoglobin 0.7 % (0.0-1.5); ABG Oxygen Saturation 86.2 % (95.0-99.0); ABG PCO2 32.3 mm Hg; ABG PH 7.488 pH Units (7.350-7.450); ABG PO2 47.7 mm Hg (80.0-90.0)
[2021-03-10] MEDS: IPRATROPIUM/ALBUTEROL SULFATE 3 ML AMPUL.NEB IH SCH ×4 (09:30→19:58)
[2021-03-10] MEDS: dexAMETHasone 4 MG/ML VIAL IV SCH (10:55)
[2021-03-10] MEDS: INSULIN LISPRO 100 UNIT/ML SUB-Q SCH ×2 (10:55→14:53)
[2021-03-10] MEDS: ENOXAPARIN 100 MG/1 ML INJ SUB-Q SCH ×2 (10:57→22:00)
[2021-03-10] MEDS: FAMOTIDINE 20 MG TAB PO SCH (11:20)
[2021-03-10] MEDS: DEXTROSE 5% IN WATER 1,000 ML IV SCH (12:00)
[2021-03-10 12:22] LABS: Basophils % (Manual) 0 % (0.0-1.8); Eosinophils % (Manual) 0 % (0.0-4.3); Total Cells Counted 100
[2021-03-10 12:23] LABS: Platelet Estimate Consistent w Auto; RBC Morphology Normal
--- NOTE | 2021-03-10 13:19 | Progress Note ---
Assessment and Plan Acute hypoxemic respiratory failure, on continuous noninvasive ventilation COVID-19 infection Bilateral pneumonia History of diabetes Obesity Hypertension Leukocytosis Possible venous thromboembolic phenomena with significantly elevated D-dimers DM II Elevated serum inflammatory markers to include CRP levels, ferritin and LDH - intubate - AC/450/30/10/100% FiO2 - ABG after 30 minutes - VAP bundle - target RASS 0 to -1 acutely - continue care as below otherwise; - follow 2D ECHO - follow lower extremity dopplers - continue NIV; transition to [facility] scheduled & prn daytime use - continue to wean supplemental oxygen for target O2 sat's > 90% acutely - aspiration precautions - continue bronchodilators with pulmonary hygiene per RT - continue accuchecks with glycemic control per SSI (While critically ill target blood glucose of 140-180 mg/dL; avoid hypoglycemia) - avoid nephrotoxins, renally dose all medications - avoid benzodiazepine's, reduce the possibility of delirium - complete AB's per ID rec's - prn analgesia per pain score - Maintenance of sleep-wake cycle, avoid delirium - G.I. & VTE prophylaxis - PT/OT/ROM exercises - mobility protocols for pressure ulcer prophylaxis - Monitor hemodynamics closely - continue other care per attending / other consultants - discharge planning ongoing concurrently COVID SPECIFIC INTERVENTIONS - Remdesivir as per ID/Pulmonary developed protocols (receiving) - continue systemic steroids for severe COVID-19 infection empirically (Decadron) - follow repeat COVID tests results - zinc and vitamin C supplementation - Monitor inflammatory markers per facility protocol - ferritin, Ddimer, CRP - therapeutic anticoagulation per system Protocol based on d-dimer and clinical considerations (treatment dose) - Continue contact and airborne isolation .... Re-evaluate in am & prn CONDITION: CRITICAL PROGNOSIS: GUARDED CODE STATUS: FULL CODE The high probability of a clinically significant, sudden or life-threatening deterioration of the [respiratory, cardiovascular & hematologic] system(s) required my full and direct attention, intervention and personal management. The aggregate critical care time was [37] minutes without overlap. Time includes spent on; [x] Data Review and interpretation [x] Patient assessment and monitoring of vital signs [x] Documentation [x] Medication orders and management Subjective Date of service: 03/10/21 Principal diagnosis: AHRF; COVID-19 infection; DM II; Bilateral pneumonia; Obesity; HTN Interval history: Patient is seen today for: Acute hypoxemic respiratory failure; COVID-19 infection; DM II; Bilateral pneumonia; Obesity; HTN Seen and examined at bedside; 24hour events reviewed; nursing and respiratory care staff consulted; no adverse overnight events reported to me; resting in bed; apparently decompensating overnight and now on 100% FiO2; difficult to arouse; remains on continuous BIPAP; no emesis or overt aspiration; afebrile Objective Vital Signs - 12hr 03/10/21 03/10/21 03/10/21 01:20 01:30 01:40 Pulse Rate 102 H 101 H 97 H Pulse Rate [ Anterior] Pulse Rate [ Bilateral Throughout] Respiratory 33 H 36 H 38 H Rate Respiratory Rate [Anterior] Respiratory Rate [Bilateral Throughout] Blood Pressure 165/95 174/105 174/105 O2 Sat by Pulse 89 93 91 Oximetry 03/10/21 03/10/21 03/10/21 01:50 02:00 02:10 Pulse Rate 97 H 96 H 97 H Pulse Rate [ Anterior] Pulse Rate [ Bilateral Throughout] Respiratory 36 H 33 H 38 H Rate Respiratory Rate [Anterior] Respiratory Rate [Bilateral Throughout] Blood Pressure 174/105 174/105 174/105 O2 Sat by Pulse 91 93 91 Oximetry 03/10/21 03/10/21 03/10/21 02:20 02:30 02:40 Pulse Rate 94 H 104 H 91 H Pulse Rate [ Anterior] Pulse Rate [ Bilateral Throughout] Respiratory 39 H 33 H 23 Rate Respiratory Rate [Anterior] Respiratory Rate [Bilateral Throughout] Blood Pressure 174/105 174/105 174/105 O2 Sat by Pulse 91 91 90 Oximetry 03/10/21 03/10/21 03/10/21 02:50 03:00 03:10 Pulse Rate 103 H 96 H 97 H Pulse Rate [ Anterior] Pulse Rate [ Bilateral Throughout] Respiratory 26 H 21 33 H Rate Respiratory Rate [Anterior] Respiratory Rate [Bilateral Throughout] Blood Pressure 174/105 174/105 174/105 O2 Sat by Pulse 92 93 94 Oximetry 03/10/21 03/10/21 03/10/21 03:20 03:30 03:40 Pulse Rate 110 H 97 H 102 H Pulse Rate [ Anterior] Pulse Rate [ Bilateral Throughout] Respiratory 29 H 34 H 34 H Rate Respiratory Rate [Anterior] Respiratory Rate [Bilateral Throughout] Blood Pressure 174/105 169/88 169/88 O2 Sat by Pulse 90 94 93 Oximetry 03/10/21 03/10/21 03/10/21 03:50 04:00 04:57 Pulse Rate 98 H 94 H 111 H Pulse Rate [ Anterior] Pulse Rate [ Bilateral Throughout] Respiratory 35 H 37 H 29 H Rate Respiratory Rate [Anterior] Respiratory Rate [Bilateral Throughout] Blood Pressure 169/88 151/86 166/85 O2 Sat by Pulse 93 93 97 Oximetry 03/10/21 03/10/21 03/10/21 05:00 06:00 07:00 Pulse Rate 112 H 105 H 107 H Pulse Rate [ Anterior] Pulse Rate [ Bilateral Throughout] Respiratory 34 H 34 H 39 H Rate Respiratory Rate [Anterior] Respiratory Rate [Bilateral Throughout] Blood Pressure 166/85 169/91 169/91 O2 Sat by Pulse 96 100 96 Oximetry 03/10/21 03/10/21 03/10/21 08:00 09:00 09:30 Pulse Rate 105 H 102 H 98 H Pulse Rate [ 98 H Anterior] Pulse Rate [ 98 H Bilateral Throughout] Respiratory 30 H 37 H 34 H Rate Respiratory 32 H Rate [Anterior] Respiratory 32 H Rate [Bilateral Throughout] Blood Pressure 169/91 169/91 164/83 O2 Sat by Pulse 100 99 95 Oximetry 03/10/21 03/10/21 03/10/21 10:00 11:00 12:00 Pulse Rate 99 H 100 H 109 H Pulse Rate [ Anterior] Pulse Rate [ Bilateral Throughout] Respiratory 32 H 40 H 26 H Rate Respiratory Rate [Anterior] Respiratory Rate [Bilateral Throughout] Blood Pressure 164/83 151/76 151/76 O2 Sat by Pulse 89 88 89 Oximetry 03/10/21 12:41 Pulse Rate Pulse Rate [ Anterior] Pulse Rate [ Bilateral Throughout] Respiratory 36 H Rate Respiratory Rate [Anterior] Respiratory Rate [Bilateral Throughout] Blood Pressure O2 Sat by Pulse 91 Oximetry Constitutional: appears uncomfortable Eyes: non-icteric ENT: oropharynx moist, other (BIPAP FFM) Neck: supple, no lymphadenopathy, no JVD Effort: mildly labored Ascultation: Bilateral: rhonchi Percussion: Bilateral: not dull Cardiovascular: regular rate and rhythm Gastrointestinal: normoactive bowel sounds, soft, non-tender, non-distended (protuberant) Integumentary: rash Extremities: no cyanosis, no edema, pulses normal, no ischemia or petechiae Neurologic: non-focal exam (grossly), pupils equal and round, CN II-XII normal, motor strength normal and, other (lethargic) Psychiatric: other (unable to assess re: AMS) CBC and BMP: 03/10/21 04:29 03/10/21 04:29 ABG, PT/INR, D-dimer: ABG ABG pH 7.488 pH Units (7.350-7.450) H 03/10/21 05:22 ABG pCO2 32.3 mm Hg 03/10/21 05:22 ABG pO2 47.7 mm Hg (80.0-90.0) L 03/10/21 05:22 ABG O2 Saturation 86.2 % (95.0-99.0) L 03/10/21 05:22 PT/INR, D-dimer PT 16.1 Sec. (12.2-14.9) H 03/08/21 20:24 INR 1.17 (0.87-1.13) H 03/08/21 20:24 D-Dimer > 48298 ng/mlDDU (0-234) H 03/08/21 20:24 Abnormal lab findings: Abnormal Labs 03/08/21 03/08/21 03/08/21 20:24 20:24 20:24 WBC 22.6 H RBC 5.44 H Hgb 15.7 H Hct 49.2 H Seg Neuts % (Manual) 83.0 H Lymphocytes % (Manual) 9.0 L Monocytes % (Manual) 8.0 H Nucleated RBC % Seg Neutrophils # Man 18.8 H Lymphocytes # (Manual) Monocytes # (Manual) 1.8 H PT 16.1 H INR 1.17 H D-Dimer > 26622 H ABG pH ABG pO2 ABG HCO3 ABG O2 Saturation Oxyhemoglobin Sodium 136 L Chloride 93.9 L BUN 29 H Glucose 208 H POC Glucose Lactic Acid Ferritin Lactate Dehydrogenase 624 H C-Reactive Protein 18.00 H NT-Pro-B Natriuret Pep 1053 H Albumin Ur Specific [place] Coronavirus (PCR) 03/08/21 03/08/21 03/09/21 20:24 20:24 04:10 WBC RBC Hgb Hct Seg Neuts % (Manual) Lymphocytes % (Manual) Monocytes % (Manual) Nucleated RBC % Seg Neutrophils # Man Lymphocytes # (Manual) Monocytes # (Manual) PT INR D-Dimer ABG pH ABG pO2 ABG HCO3 ABG O2 Saturation Oxyhemoglobin Sodium Chloride BUN Glucose POC Glucose Lactic Acid 2.10 H* Ferritin 877.5 H Lactate Dehydrogenase C-Reactive Protein NT-Pro-B Natriuret Pep Albumin Ur Specific [place] 1.041 H Coronavirus (PCR) 03/09/21 03/09/21 03/09/21 07:46 08:00 13:01 WBC RBC Hgb Hct Seg Neuts % (Manual) Lymphocytes % (Manual) Monocytes % (Manual) Nucleated RBC % Seg Neutrophils # Man Lymphocytes # (Manual) Monocytes # (Manual) PT INR D-Dimer ABG pH ABG pO2 ABG HCO3 ABG O2 Saturation Oxyhemoglobin Sodium Chloride BUN Glucose POC Glucose 191 H 182 H Lactic Acid Ferritin Lactate Dehydrogenase C-Reactive Protein NT-Pro-B Natriuret Pep Albumin Ur Specific [place] Coronavirus (PCR) Positive A 03/09/21 03/09/21 03/09/21 15:19 17:48 18:10 WBC RBC Hgb Hct Seg Neuts % (Manual) Lymphocytes % (Manual) Monocytes % (Manual) Nucleated RBC % Seg Neutrophils # Man Lymphocytes # (Manual) Monocytes # (Manual) PT INR D-Dimer ABG pH ABG pO2 47.3 L ABG HCO3 26.3 H ABG O2 Saturation 83.7 L Oxyhemoglobin 82.1 L Sodium Chloride BUN 29 H Glucose 214 H POC Glucose 194 H Lactic Acid Ferritin Lactate Dehydrogenase C-Reactive Protein NT-Pro-B Natriuret Pep Albumin 3.4 L Ur Specific [place] Coronavirus (PCR) 03/10/21 03/10/21 03/10/21 04:29 04:29 05:22 WBC 20.6 H RBC 5.07 H Hgb Hct 46.2 H Seg Neuts % (Manual) 94.0 H Lymphocytes % (Manual) 1.0 L Monocytes % (Manual) Nucleated RBC % 3.0 H Seg Neutrophils # Man 19.4 H Lymphocytes # (Manual) 0.2 L Monocytes # (Manual) 1.0 H PT INR D-Dimer ABG pH 7.488 H ABG pO2 47.7 L ABG HCO3 ABG O2 Saturation 86.2 L Oxyhemoglobin 84.6 L Sodium Chloride BUN 29 H Glucose 188 H POC Glucose Lactic Acid Ferritin Lactate Dehydrogenase C-Reactive Protein NT-Pro-B Natriuret Pep Albumin 3.3 L Ur Specific [place] Coronavirus (PCR) 03/10/21 10:27 WBC RBC Hgb Hct Seg Neuts % (Manual) Lymphocytes % (Manual) Monocytes % (Manual) Nucleated RBC % Seg Neutrophils # Man Lymphocytes # (Manual) Monocytes # (Manual) PT INR D-Dimer ABG pH ABG pO2 ABG HCO3 ABG O2 Saturation Oxyhemoglobin Sodium Chloride BUN Glucose POC Glucose 155 H Lactic Acid Ferritin Lactate Dehydrogenase C-Reactive Protein NT-Pro-B Natriuret Pep Albumin Ur Specific [place] Coronavirus (PCR) Chest x-ray: pending Allied health notes reviewed: nursing
[2021-03-10] MEDS ORDERED: LORazepam 2 MG/ML VIAL IV PRN (13:20)
[2021-03-10] MEDS ORDERED: HALOPERIDOL LACTATE 5 MG/1 ML INJ IM PRN (13:21)
--- NOTE | 2021-03-10 14:36 | Vascular Lab Report ---
DUPLEX DOPPLER LOWER EXTREMITY VEINS, BILATERAL INDICATION / CLINICAL INFORMATION: swelling. TECHNIQUE: Duplex doppler imaging was performed through the veins of both lower extremities using venous dara jose francisco and other maneuvers. COMPARISON: None available. FINDINGS: RIGHT COMMON FEMORAL VEIN: Negative. RIGHT FEMORAL VEIN: Negative. RIGHT POPLITEAL VEIN: Negative. RIGHT CALF VEINS: Negative. LEFT COMMON FEMORAL VEIN: Negative. LEFT FEMORAL VEIN: Negative. LEFT POPLITEAL VEIN: Negative. LEFT CALF VEINS: Negative. There is thrombus in the superficial left gastrocnemius vein. ADDITIONAL FINDINGS: None. IMPRESSION: 1. Negative for DVT. 2. Superficial thrombus in the left gastrocnemius vein. Signer Name: Jaya Fernandes MD Signed: 03/10/2021 2:32 PM Workstation Name: [id number]
[2021-03-10] MEDS: ZINC SULFATE 220 MG CAP PO SCH ×2 (15:22→22:00)
[2021-03-10] MEDS: ASCORBIC ACID 500 MG TAB PO SCH ×2 (15:22→22:00)
--- NOTE | 2021-03-10 15:35 | Progress Note ---
Assessment and Plan Cultures: SARS CoV2 PCR: positive 03/08/2021 blood culture: no growth A/P: 61-year-old male with diabetes, hypertension admitted to the hospital with complaints of shortness of breath and feeling weak for the last 1 week: #Sepsis secondary to bilateral pneumonia: secondary to COVID-19. Elevated inflammatory markers. WBC 22.6, creatinine 1.3, ferritin 877, CRP 18.0, LDH 624, procalcitonin 0.18. D-dimer >10k. CTA negative for pulmonary embolism, severe patchy groundglass opacities. #Acute hypoxic respiratory failure: Requiring BiPAP #DM #HTN Recs: -IV/PO Dexamethasone x 10 days -continue IV remdesivir x 5 days -no other source of infection identified, CRP high, on BiPAP, ordered Actemra -prophylactic anticoagulation based on d-dimer per hospital protocol -procal is low, but high WBC, continue empiric abx x 5 days -trend ferritin, d-dimer, CRP every 2-3 days Sangita Nicole MD, FACP, [facility] ([facility] O: [phone] F: [phone] Subjective Date of service: 03/10/21 Principal diagnosis: AHRF; COVID-19 infection; DM II; Bilateral pneumonia; Obesity; HTN Interval history: No fever. On BiPAP. Objective - Exam Narrative Exam: Physical Exam (reviewed in chart to minimize risk of transmission) Constitutional: deferred Head, Ears, Nose: deferred Eyes: deferred Neck: deferred Oral: deferred Cardiovascular: deferred Respiratory: deferred GI: deferred Musculoskeletal: deferred Skin: deferred Hem/Lymphatic: deferred Psych: deferred Neurological: deferred - Constitutional Vitals: Vital Signs Temp Pulse Resp BP Pulse Ox 98.2 F 102 H 30 H 151/76 91 03/09/21 14:30 03/10/21 13:30 03/10/21 13:30 03/10/21 12:00 03/10/21 12:41 - Labs CBC & Chem 7: 03/10/21 04:29 03/10/21 04:29 Labs: Abnormal lab results 03/09/21 03/09/21 03/09/21 Range/Units 08:00 15:19 17:48 WBC (4.5-11.0) K/mm3 RBC (3.65-5.03) M/mm3 Hct (35.5-45.6) % Seg Neuts % (Manual) (40.0-70.0) % Lymphocytes % (Manual) (13.4-35.0) % Nucleated RBC % (0.0-0.9) % Seg Neutrophils # Man (1.8-7.7) K/mm3 Lymphocytes # (Manual) (1.2-5.4) K/mm3 Monocytes # (Manual) (0.0-0.8) K/mm3 ABG pH (7.350-7.450) pH Units ABG pO2 (80.0-90.0) mm Hg ABG HCO3 (20.0-26.0) mmol/L ABG O2 Saturation (95.0-99.0) % Oxyhemoglobin (95.0-99.0) % BUN 29 H (9-20) mg/dL Glucose 214 H (75-100) mg/dL POC Glucose 194 H (70-105) mg/dL Albumin 3.4 L (3.9-5) g/dL Coronavirus (PCR) Positive A (Negative) 03/09/21 03/10/21 03/10/21 Range/Units 18:10 04:29 04:29 WBC 20.6 H (4.5-11.0) K/mm3 RBC 5.07 H (3.65-5.03) M/mm3 Hct 46.2 H (35.5-45.6) % Seg Neuts % (Manual) 94.0 H (40.0-70.0) % Lymphocytes % (Manual) 1.0 L (13.4-35.0) % Nucleated RBC % 3.0 H (0.0-0.9) % Seg Neutrophils # Man 19.4 H (1.8-7.7) K/mm3 Lymphocytes # (Manual) 0.2 L (1.2-5.4) K/mm3 Monocytes # (Manual) 1.0 H (0.0-0.8) K/mm3 ABG pH (7.350-7.450) pH Units ABG pO2 47.3 L (80.0-90.0) mm Hg ABG HCO3 26.3 H (20.0-26.0) mmol/L ABG O2 Saturation 83.7 L (95.0-99.0) % Oxyhemoglobin 82.1 L (95.0-99.0) % BUN 29 H (9-20) mg/dL Glucose 188 H (75-100) mg/dL POC Glucose (70-105) mg/dL Albumin 3.3 L (3.9-5) g/dL Coronavirus (PCR) (Negative) 03/10/21 03/10/21 Range/Units 05: 10:27 WBC (4.5-11.0) K/mm3 RBC (3.65-5.03) M/mm3 Hct (35.5-45.6) % Seg Neuts % (Manual) (40.0-70.0) % Lymphocytes % (Manual) (13.4-35.0) % Nucleated RBC % (0.0-0.9) % Seg Neutrophils # Man (1.8-7.7) K/mm3 Lymphocytes # (Manual) (1.2-5.4) K/mm3 Monocytes # (Manual) (0.0-0.8) K/mm3 ABG pH 7.488 H (7.350-7.450) pH Units ABG pO2 47.7 L (80.0-90.0) mm Hg ABG HCO3 (20.0-26.0) mmol/L ABG O2 Saturation 86.2 L (95.0-99.0) % Oxyhemoglobin 84.6 L (95.0-99.0) % BUN (9-20) mg/dL Glucose (75-100) mg/dL POC Glucose 155 H (70-105) mg/dL Albumin (3.9-5) g/dL Coronavirus (PCR) (Negative)
[2021-03-10] MEDS ORDERED: LIP THERAPY VASELINE TP PRN (15:39)
[2021-03-10] MEDS ORDERED: MINERAL OIL/PETROLATUM, WHITE OPHTH OINT 3.5 GM OU PRN (15:39)
[2021-03-10] MEDS ORDERED: SUCCINYLCHOLINE CHLORIDE 200 MG/10 ML INJ MDV ONE (15:43)
[2021-03-10] MEDS ORDERED: ETOMIDATE 20 MG/10 ML INJ IV ONE (15:43)
[2021-03-10] MEDS ORDERED: fentaNYL DRIP Premix 2,000 MCG/100 ML BAG IV ONE (15:44)
[2021-03-10 15:49] LABS: ABG Base Excess 2.3 mmol/L (-2.0-3.0); ABG HCO3 25.1 mmol/L (20.0-26.0); ABG Methemoglobin 0.8 % (0.0-1.5); ABG Oxygen Saturation 87.9 % (95.0-99.0); ABG PCO2 33.9 mm Hg; ABG PH 7.488 pH Units (7.350-7.450); ABG PO2 50.5 mm Hg (80.0-90.0)
[2021-03-10] MEDS ORDERED: MIDAZOLAM 5 MG/5 ML INJ MDV IV NR (15:50)
[2021-03-10] MEDS: fentaNYL DRIP Premix 2,000 MCG/100 ML BAG IV SCH (15:50)
--- NOTE | 2021-03-10 15:59 | Event Note ---
Date: 03/10/21 (Intubation) Requested by Dr. Ray to intubate patient 15:47 Meds: Etomidate 20 mg + Sux 100 mg Glidescope x 1 attempt. 7.5 OETT @ 24 cm +BBS/CO2 VSS
[2021-03-10] MEDS ORDERED: MIDAZOLAM 5 MG/5 ML INJ MDV IV ONE (16:01)
[2021-03-10] MEDS ORDERED: HALOPERIDOL DECANOATE 100 MG/1 ML INJ IM ONE (16:30)
--- NOTE | 2021-03-10 16:32 | XRay Report ---
CHEST 1 VIEW 03/10/2021 3:25 PM INDICATION / CLINICAL INFORMATION: ETT placement. COMPARISON: March 08, 2021 FINDINGS: SUPPORT DEVICES: ET tube is 6.3 cm above the lizzie HEART / MEDIASTINUM: No significant abnormality. LUNGS / PLEURA: Diffuse opacities in bilateral lungs No pneumothorax. Signer Name: Surendra Palmer MD Signed: 03/10/2021 4:27 PM Workstation Name: [id number]
--- NOTE | 2021-03-10 17:11 | Progress Note ---
Assessment and Plan Assessment and plan: #COVID-19 pneumonia #Acute hypoxic respiratory failure - etiology: COVID-19 - baseline oxygen requirements: None - supplemental oxygen: Mechanical intubation - Continue protocol: continue pulse oximetry, wean oxygen as tolerated, continue contact and droplet precautions Continue IV steroids x10 days and remdesivir x5 days Discontinued azithromycin 500 mg daily and Rocephin 2 g daily in setting of COVID-19 infection. Blood culture NGTD x24 hours Pulmonology consulted; appreciate recs Infectious disease consulted; appreciate recs Check informatory markers (D-dimer, ferritin, LDH, CRP) every 2-3 days - continue to monitor #Elevated D-dimer D-dimer >10,000 Continue Lovenox 1 mg / 1 kg twice daily for DVT prophylaxis #Hyperglycemia Likely in the setting of steroid administration Continue moderate SSI Blood glucose goal [id number] while inpatient. Continue to monitor. #Elevated blood pressure Starting IV labetalol 10 mg every 6 hours SBP goal <160 Continue to monitor The high probability of a clinically significant, sudden or life threatening deterioration of the [resp and ID] system(s) required my full and direct attention, intervention and personal management. The aggregate critical care time was [60] minutes. This time is in addition to time spent performing reported procedures but includes the following: [x] Data Review and interpretation [x] Patient assessment and monitoring of vital signs [x] Documentation [x] Medication orders and management Disposition Plan: Continue medical management Total Time Spent with Patient (Minutes): 60 min History Interval history: No acute event overnight. Hospitalist Physical - Constitutional Vitals: Temp Pulse Resp BP Pulse Ox 98.2 F 133 H 30 H 143/81 97 03/09/21 14:30 03/10/21 16:00 03/10/21 13:30 03/10/21 16:00 03/10/21 16:00 General appearance: Present: mild distress, well-nourished, obese - EENT Eyes: Present: PERRL, EOM intact ENT: hearing intact, clear oral mucosa, dentition normal - Neck Neck: Present: supple, normal ROM - Respiratory Respiratory effort: normal Respiratory: bilateral: diminished (on BiPAP) - Cardiovascular Rhythm: regular Heart Sounds: Present: S1 & S2 - Extremities Extremities: no ischemia, pulses intact, pulses symmetrical, No edema, normal temperature, normal color, Full ROM Peripheral Pulses: within normal limits - Abdominal General gastrointestinal: soft, non-tender, non-distended, normal bowel sounds - Integumentary Integumentary: Present: clear, warm, dry - Psychiatric Psychiatric: appropriate mood/affect, intact judgment & insight, memory intact, cooperative - Neurologic Neurologic: CNII-XII intact, moves all extremities - Allied Health Allied health notes reviewed: nursing Results - Labs CBC & Chem 7: 03/10/21 04:29 03/10/21 04:29 Labs: Laboratory Last Values WBC 20.6 K/mm3 (4.5-11.0) H 03/10/21 04:29 RBC 5.07 M/mm3 (3.65-5.03) H 03/10/21 04:29 Hgb 14.9 gm/dl (11.8-15.2) 03/10/21 04:29 Hct 46.2 % (35.5-45.6) H 03/10/21 04:29 MCV 91 fl (84-94) 03/10/21 04:29 MCH 30 pg (28-32) 03/10/21 04:29 MCHC 32 % (32-34) 03/10/21 04:29 RDW 14.5 % (13.2-15.2) 03/10/21 04:29 Plt Count 300 K/mm3 (140-440) 03/10/21 04:29 Add Manual Diff Complete 03/10/21 04:29 Total Counted 100 03/10/21 04:29 Seg Neuts % (Manual) 94.0 % (40.0-70.0) H 03/10/21 04:29 Band Neutrophils % 0 % 03/10/21 04:29 Lymphocytes % (Manual) 1.0 % (13.4-35.0) L 03/10/21 04:29 Reactive Lymphs % (Man) 0 % 03/10/21 04:29 Monocytes % (Manual) 5.0 % (0.0-7.3) 03/10/21 04:29 Eosinophils % (Manual) 0 % (0.0-4.3) 03/10/21 04:29 Basophils % (Manual) 0 % (0.0-1.8) 03/10/21 04:29 Metamyelocytes % 0 % 03/10/21 04:29 Myelocytes % 0 % 03/10/21 04:29 Promyelocytes % 0 % 03/10/21 04:29 Blast Cells % 0 % 03/10/21 04:29 Nucleated RBC % 3.0 % (0.0-0.9) H 03/10/21 04:29 Seg Neutrophils # Man 19.4 K/mm3 (1.8-7.7) H 03/10/21 04:29 Band Neutrophils # 0.0 K/mm3 03/10/21 04:29 Lymphocytes # (Manual) 0.2 K/mm3 (1.2-5.4) L 03/10/21 04:29 Abs React Lymphs (Man) 0.0 K/mm3 03/10/21 04:29 Monocytes # (Manual) 1.0 K/mm3 (0.0-0.8) H 03/10/21 04:29 Eosinophils # (Manual) 0.0 K/mm3 (0.0-0.4) 03/10/21 04:29 Basophils # (Manual) 0.0 K/mm3 (0.0-0.1) 03/10/21 04:29 Metamyelocytes # 0.0 K/mm3 03/10/21 04:29 Myelocytes # 0.0 K/mm3 03/10/21 04:29 Promyelocytes # 0.0 K/mm3 03/10/21 04:29 Blast Cells # 0.0 K/mm3 03/10/21 04:29 WBC Morphology Not Reportable 03/10/21 04:29 Hypersegmented Neuts Not Reportable 03/10/21 04:29 Hyposegmented Neuts Not Reportable 03/10/21 04:29 Hypogranular Neuts Not Reportable 03/10/21 04:29 Smudge Cells Not Reportable 03/10/21 04:29 Toxic Granulation Not Reportable 03/10/21 04:29 Toxic Vacuolation Not Reportable 03/10/21 04:29 Dohle Bodies Not Reportable 03/10/21 04:29 Pelger-Huet Anomaly Not Reportable 03/10/21 04:29 Mely Rods Not Reportable 03/10/21 04:29 Platelet Estimate Consistent w auto 03/10/21 04:29 Clumped Platelets Not Reportable 03/10/21 04:29 Plt Clumps, EDTA Not Reportable 03/10/21 04:29 Large Platelets Not Reportable 03/10/21 04:29 Giant Platelets Not Reportable 03/10/21 04:29 Platelet Satelliting Not Reportable 03/10/21 04:29 Plt Morphology Comment Not Reportable 03/10/21 04:29 RBC Morphology Normal 03/10/21 04:29 Dimorphic RBCs Not Reportable 03/10/21 04:29 Polychromasia Not Reportable 03/10/21 04:29 Hypochromasia Not Reportable 03/10/21 04:29 Poikilocytosis Not Reportable 03/10/21 04:29 Anisocytosis Not Reportable 03/10/21 04:29 Microcytosis Not Reportable 03/10/21 04:29 Macrocytosis Not Reportable 03/10/21 04:29 Spherocytes Not Reportable 03/10/21 04:29 Pappenheimer Bodies Not Reportable 03/10/21 04:29 Sickle Cells Not Reportable 03/10/21 04:29 Target Cells Not Reportable 03/10/21 04:29 Tear Drop Cells Not Reportable 03/10/21 04:29 Ovalocytes Not Reportable 03/10/21 04:29 Helmet Cells Not Reportable 03/10/21 04:29 [place] Bodies Not Reportable 03/10/21 04:29 [place] Rings Not Reportable 03/10/21 04:29 [place] Cells Not Reportable 03/10/21 04:29 Bite Cells Not Reportable 03/10/21 04:29 Crenated Cell Not Reportable 03/10/21 04:29 Elliptocytes Not Reportable 03/10/21 04:29 Acanthocytes (Spur) Not Reportable 03/10/21 04:29 Rouleaux Not Reportable 03/10/21 04:29 Hemoglobin C Crystals Not Reportable 03/10/21 04:29 Schistocytes Not Reportable 03/10/21 04:29 Malaria parasites Not Reportable 03/10/21 04:29 Sha[place]en Bodies Not Reportable 03/10/21 04:29 Hem Pathologist Commnt No 03/10/21 04:29 PT 16.1 Sec. (12.2-14.9) H 03/08/21 20:24 INR 1.17 (0.87-1.13) H 03/08/21 20:24 APTT 28.0 Sec. (24.2-36.6) 03/08/21 20:24 D-Dimer > 21551 ng/mlDDU (0-234) H 03/08/21 20:24 ABG pH 7.488 pH Units (7.350-7.450) H 03/10/21 15:25 ABG pCO2 33.9 mm Hg 03/10/21 15:25 ABG pO2 50.5 mm Hg (80.0-90.0) L 03/10/21 15:25 ABG HCO3 25.1 mmol/L (20.0-26.0) 03/10/21 15:25 ABG O2 Saturation 87.9 % (95.0-99.0) L 03/10/21 15:25 ABG O2 Content 18.8 (0.0-44) 03/10/21 15:25 ABG Base Excess 2.3 mmol/L (-2.0-3.0) 03/10/21 15:25 ABG Hemoglobin 15.6 gm/dl (14.0-18.0) 03/10/21 15:25 ABG Carboxyhemoglobin 1.1 % (0.0-5.0) 03/10/21 15:25 ABG Methemoglobin 0.8 % (0.0-1.5) 03/10/21 15:25 Oxyhemoglobin 86.2 % (95.0-99.0) L 03/10/21 15:25 FiO2 60 % 03/10/21 15:25 Sodium 141 mmol/L (137-145) 03/10/21 04:29 Potassium 3.8 mmol/L (3.6-5.0) 03/10/21 04:29 Chloride 102.5 mmol/L (98-107) 03/10/21 04:29 Carbon Dioxide 23 mmol/L (22-30) 03/10/21 04:29 Anion Gap 19 mmol/L 03/10/21 04:29 BUN 29 mg/dL (9-20) H 03/10/21 04:29 Creatinine 0.9 mg/dL (0.8-1.3) 03/10/21 04:29 Estimated GFR > 60 ml/min 03/10/21 04:29 BUN/Creatinine Ratio 32 % 03/10/21 04:29 Glucose 188 mg/dL (75-100) H 03/10/21 04:29 POC Glucose 155 mg/dL (70-105) H 03/10/21 10:27 Lactic Acid 1.90 mmol/L (0.7-2.0) 03/08/21 23:51 Calcium 9.0 mg/dL (8.4-10.2) 03/10/21 04:29 Ferritin 877.5 ng/mL (30.0-300.0) H 03/08/21 20:24 Total Bilirubin 0.60 mg/dL (0.1-1.2) 03/10/21 04:29 AST 24 units/L (5-40) 03/10/21 04:29 ALT 34 units/L (7-56) 03/10/21 04:29 Alkaline Phosphatase 85 units/L (35-129) 03/10/21 04:29 Lactate Dehydrogenase 624 units/L (91-180) H 03/08/21 20:24 C-Reactive Protein 18.00 mg/dL (0.00-1.30) H 03/08/21 20:24 NT-Pro-B Natriuret Pep 1053 pg/mL (0-900) H 03/08/21 20:24 Total Protein 6.8 g/dL (6.3-8.2) 03/10/21 04:29 Albumin 3.3 g/dL (3.9-5) L 03/10/21 04:29 Albumin/Globulin Ratio 0.9 % 03/10/21 04:29 Procalcitonin 0.14 ng/mL (<0.15) 03/10/21 09:47 Urine Color Yellow (Yellow) 03/09/21 04:10 Urine Turbidity Slightly-cloudy (Clear) 03/09/21 04:10 Urine pH 5.0 (5.0-7.0) 03/09/21 04:10 Ur Specific [place] 1.041 (1.003-1.030) H 03/09/21 04:10 Urine Protein 100 mg/dl mg/dL (Negative) 03/09/21 04:10 Urine Glucose (UA) Neg mg/dL (Negative) 03/09/21 04:10 Urine Ketones Neg mg/dL (Negative) 03/09/21 04:10 Urine Blood Mod (Negative) 03/09/21 04:10 Urine Nitrite Neg (Negative) 03/09/21 04:10 Urine Bilirubin Neg (Negative) 03/09/21 04:10 Urine Urobilinogen 2.0 mg/dL (<2.0) 03/09/21 04:10 Ur Leukocyte Esterase Neg (Negative) 03/09/21 04:10 Urine WBC (Auto) 4.0 /HPF (0.0-6.0) 03/09/21 04:10 Urine RBC (Auto) 1.0 /HPF (0.0-6.0) 03/09/21 04:10 Urine Bacteria (Auto) 1+ /HPF (Negative) 03/09/21 04:10 Urine Mucus Few /HPF 03/09/21 04:10 Coronavirus (PCR) Positive (Negative) A 03/09/21 08:00 Microbiology: Microbiology 03/08/21 20:41 Peripheral/Venous Blood Culture - Preliminary NO GROWTH AFTER 24 HOURS 03/08/21 20:24 Peripheral/Venous Blood Culture - Preliminary NO GROWTH AFTER 24 HOURS Good/IV: Voiding Method Urinal Active Medications - Current Medications Current Medications: Generic Name Dose Route Start Last Admin Trade Name Freq PRN Reason Stop Dose Admin Acetaminophen 650 mg 03/09/21 01:26 Acetaminophen 325 Mg Tab PO Q4H PRN Pain MILD(1-3)/Fever >100.5/RAYO Albuterol 2.5 mg 03/09/21 01:26 Albuterol 2.5 Mg/3 Ml Nebu IH Q4HRT PRN Shortness Of Breath Albuterol/Ipratropium 1 ampul 03/09/21 02:00 03/10/21 14:21 Ipratropium/Albuterol Sulfate 3 Ml Ampul.Neb IH Not Given Q6HRT BLANCA Ascorbic Acid 500 mg 03/10/21 14:00 03/10/21 15:22 Ascorbic Acid 500 Mg Tab PO Not Given BID BLANCA Dexamethasone 6 mg 03/09/21 10:00 03/10/21 10:55 Dexamethasone 4 Mg/Ml Vial IV 03/18/21 10:01 6 mg DAILY BLANCA Administration Dextrose 0 ml 03/09/21 01:26 Dextrose 50% In Water (25gm) 50 Ml Syringe IV Q30MIN PRN Hypoglycemia Protocol Enoxaparin Sodium 100 mg 03/09/21 10:00 03/10/21 10:57 Enoxaparin 100 Mg/1 Ml Inj SUB-Q 100 mg Q12HR [facility] Administration Protocol Famotidine 20 mg 03/10/21 22:00 Famotidine 20 Mg/2 Ml Inj IV BID [facility] Fentanyl 50 mcg 03/10/21 16:47 Fentanyl 100 Mcg/2 Ml Inj IV Q10MIN PRN ANALGESIA Hydralazine HCl 10 mg 03/09/21 01:36 03/10/21 03:56 Hydralazine 20 Mg/1 Ml Inj IV 10 mg Q6H PRN Administration Blood Pressure Hydromorphone HCl 0.5 mg 03/09/21 01:26 Hydromorphone 1 Mg/1 Ml Inj IV Q3H PRN Pain , Severe (7-10) Hydrophilic Ointment 1 applic 03/10/21 15:39 Lip Therapy Vaseline TP Q2HR PRN Dry Lips REMDESIVIR 100 mg/ Sodium 250 mls @ 500 mls/hr 03/10/21 21:00 Chloride IV 03/13/21 21:29 Q24HR@2100 [facility] Dextrose 1,000 mls @ 125 mls/hr 03/10/21 12:00 03/10/21 12:00 D5w IV 125 mls/hr DIRECT BLANCA Administration TOCILIZUMAB 810 mg/ Sodium 140.5 mls @ 120 mls/hr 03/10/21 17:35 Chloride IV 03/10/21 18:45 ONCE ONE Fentanyl Citrate 2,000 mcg in 100 mls @ 5.897 mls/hr 03/10/21 17:00 Fentanyl Drip Premix IV TITR [facility] Protocol 1 MCG/KG/HR Insulin Human Lispro 0 unit 03/09/21 07:30 03/10/21 14:53 Insulin Lispro 100 Unit/Ml SUB-Q Not Given ACHS [facility] Protocol Morphine Sulfate 2 mg 03/09/21 01:26 Morphine 2 Mg/1 Ml Inj IV Q4H PRN Pain, Moderate (4-6) Multi-Ingred Cream/Lotion/Oil/Oint 1 applic 03/10/21 15:39 Mineral Oil/Petrolatum, White Ophth Oint 3.5 Gm OU Q4HR PRN Dry Eye(s) Ondansetron HCl 4 mg 03/09/21 01:26 Ondansetron 4 Mg/2 Ml Inj IV Q8H PRN Nausea And Vomiting Senna/Docusate Sodium 1 tab 03/10/21 22:00 Sennosides/Docusate Sodium 8.6/50 Mg Tab FEEDTUBE BID [facility]AN[facility] Sodium Chloride 10 ml 03/09/21 10:00 03/10/21 11:20 Sodium Chloride 0.9% 10 Ml Flush Syringe IV 10 ml BID [facility] Administration Sodium Chloride 10 ml 03/09/21 01:26 Sodium Chloride 0.9% 10 Ml Flush Syringe IV PRN PRN LINE FLUSH Sodium Chloride 50 ml 03/09/21 21:00 03/09/21 21:16 Sodium Chloride 0.9% 50 Ml Ivpb IV 03/13/21 21:01 Not Given Q24HR@2100 [facility] Zinc Sulfate 220 mg 03/10/21 14:00 03/10/21 15:22 Zinc Sulfate 220 Mg Cap PO Not Given BID [facility]AN[facility] Nutrition/Malnutrition Assess - Dietary Evaluation Nutrition/Malnutrition Findings: Nutrition Notes Start: 03/09/21 08:49 Freq: Status: Active Protocol: Document 03/10/21 16:14 BRIAN (Rec: 03/10/21 16:21 NHALL [id number]) Nutrition Notes Need for Assessment generated from: MD Order Initial or Follow up Assessment Current Diagnosis Diabetes,Sepsis,Hypertension, Respiratory Failure Other Pertinent Diagnosis COVID-19 pneu Current Diet Cardiac/Consistent CHO Labs/Tests BG 188 BUN 29 Pertinent Medications Vit C, Zn sulfate, Decadron, D5 at 125ml/hr Height 5 ft 11 in Weight 117.934 kg [place] Body Weight (kg) 78.18 BMI 36.2 Weight Status Obese Subjective/Other Information RD consulted for TF. Pt in ED at this time; intubated today . Burn Absent Trauma Absent Minimum of two criteria No #1 Nutrition Diagnosis Inadequate oral intake Etiology mech ventilation As Evidenced by Signs and Symptoms pt NPO Is patient on ventilator? Yes Is Patient Ambulatory and/or Out of Bed No REE-([facility]-confined to bed) [phone] Calculation Used for Recommendations 70-80% energy needs Additional Notes Energy needs: 3470-0888 kcal/ day Pro needs 1.3g/kg adjBW: 127g/ day Fluid needs 1ml/kcal Nutrition Intervention Change Diet Order: D/C PO diet Nutrition Support: Vital AF 1.2 at 65ml/hr with 100ml water flush q4h. Kcal 1,872 Protein (gm) 117 Carbohydrates (gm) 173 Fat (gm) 84 Fluid (mL) 1,265 Fiber (gm) 8 Goal #1 TF tolerance Goal #2 TF to meet at least 75% energy and pro needs Anticipated Discharge Needs: Unable to identify at this time Follow-Up By: 03/13/21 Additional Comments F/U: new TF, vent status
[2021-03-10] MEDS ORDERED: TOCILIZUMAB 810 MG in SODIUM CHLORIDE 0.9% 100 ML IV ONE (17:35)
[2021-03-10 18:23] LABS: ABG Base Excess 1.1 mmol/L (-2.0-3.0); ABG HCO3 27.9 mmol/L (20.0-26.0); ABG Methemoglobin 0.8 % (0.0-1.5); ABG Oxygen Saturation 88.7 % (95.0-99.0); ABG PCO2 52.6 mm Hg; ABG PH 7.343 pH Units (7.350-7.450); ABG PO2 60.4 mm Hg (80.0-90.0)
[2021-03-10] MEDS: SODIUM CHLORIDE 0.9% 50 ML IVPB IV SCH (21:00)
[2021-03-10] MEDS: REMDESIVIR 100 MG in SODIUM CHLORIDE 0.9% 250ML 250 ML IV SCH (21:00)
[2021-03-10] MEDS: SENNOSIDES/DOCUSATE SODIUM 8.6/50 MG TAB FEEDTUBE SCH (22:00)
[2021-03-10] MEDS: FAMOTIDINE 20 MG/2 ML INJ IV SCH (22:00)
[2021-03-10] MEDS: methylPREDNISolone Sod Succinate 125 MG/2 ML INJ IV SCH (22:00)
[2021-03-11] MEDS: INSULIN LISPRO 100 UNIT/ML SUB-Q SCH ×4 (00:10→17:02)
[2021-03-11 05:48] LABS: Albumin 3.2 g/dL (3.9-5); Calcium 8.8 mg/dL (8.4-10.2)
[2021-03-11] MEDS: methylPREDNISolone Sod Succinate 125 MG/2 ML INJ IV SCH ×3 (06:01→21:26)
[2021-03-11] MEDS: DEXTROSE 5% IN WATER 1,000 ML IV SCH ×2 (08:09→16:36)
[2021-03-11] MEDS: fentaNYL DRIP Premix 2,000 MCG/100 ML BAG IV SCH ×3 (08:10→20:54)
[2021-03-11] MEDS: SENNOSIDES/DOCUSATE SODIUM 8.6/50 MG TAB FEEDTUBE SCH (09:45)
[2021-03-11] MEDS: ZINC SULFATE 220 MG CAP PO SCH ×2 (09:45→22:14)
[2021-03-11] MEDS: ASCORBIC ACID 500 MG TAB PO SCH ×2 (09:45→21:27)
[2021-03-11] MEDS: FAMOTIDINE 20 MG/2 ML INJ IV SCH ×2 (09:46→21:27)
[2021-03-11] MEDS: ENOXAPARIN 100 MG/1 ML INJ SUB-Q SCH ×2 (09:46→21:27)
--- NOTE | 2021-03-11 13:12 | Progress Note ---
Assessment and Plan Cultures: SARS CoV2 PCR: positive 03/08/2021 blood culture: no growth A/P: 61-year-old male with diabetes, hypertension admitted to the hospital with complaints of shortness of breath and feeling weak for the last 1 week: #Sepsis secondary to bilateral pneumonia: secondary to COVID-19. Elevated inflammatory markers. WBC 22.6, creatinine 1.3, ferritin 877, CRP 18.0, LDH 624, procalcitonin 0.18. D-dimer >10k. CTA negative for pulmonary embolism, severe patchy groundglass opacities. #Acute hypoxic respiratory failure: initially required BiPAP, now intubated, on the vent. #DM #HTN Recs: -IV/PO Dexamethasone x 10 days -continue IV remdesivir x 5 days -s/p Actemra 03/10/2021 -prophylactic anticoagulation based on d-dimer per hospital protocol -trend d-dimer, CRP every 2-3 days -poor prognosis Sangita Nicole MD, FACP, [facility] ([facility] O: [phone] F: [phone] Subjective Date of service: 03/11/21 Principal diagnosis: AHRF; COVID-19 infection; DM II; Bilateral pneumonia; Obesity; HTN Interval history: No fever. Now intubated, on the vent. Objective - Exam Narrative Exam: Physical Exam (reviewed in chart to minimize risk of transmission) Constitutional: deferred Head, Ears, Nose: deferred Eyes: deferred Neck: deferred Oral: deferred Cardiovascular: deferred Respiratory: deferred GI: deferred Musculoskeletal: deferred Skin: deferred Hem/Lymphatic: deferred Psych: deferred Neurological: deferred - Constitutional Vitals: Vital Signs Temp Pulse Resp BP Pulse Ox 99.9 F H 106 H 25 H 161/89 99 03/11/21 12:00 03/11/21 11:14 03/11/21 11:00 03/11/21 11:14 03/11/21 11:00 Temperature -Last 24 Hours Temperature 99.9 F Temperature 98.8 F Temperature 98.6 F Temperature 98.7 F - Labs CBC & Chem 7: 03/10/21 04:29 03/11/21 04:28 Labs: Abnormal lab results 03/10/21 03/10/21 03/10/21 Range/Units 15:25 18:10 18:55 ABG pH 7.488 H 7.343 L (7.350-7.450) pH Units POC ABG pCO2 (32.0-48.0) mmHg POC ABG pO2 (83-108) mmHg ABG pO2 50.5 L 60.4 L (80.0-90.0) mm Hg ABG HCO3 27.9 H (20.0-26.0) mmol/L ABG O2 Saturation 87.9 L 88.7 L (95.0-99.0) % ABG Oxyhemoglobin (94-98) ABG Potassium (3.40-4.50) mmol/L ABG Glucose (65-95) mg/dL Oxyhemoglobin 86.2 L 86.9 L (95.0-99.0) % BUN (9-20) mg/dL Glucose (75-100) mg/dL POC Glucose 187 H (70-105) mg/dL Albumin (3.9-5) g/dL Arterial Blood Glucose (65-95) mg/dL 03/11/21 03/11/21 03/11/21 Range/Units 00:07 02:09 04:28 ABG pH 7.277 L (7.350-7.450) pH Units POC ABG pCO2 55.9 H (32.0-48.0) mmHg POC ABG pO2 54.4 L (83-108) mmHg ABG pO2 (80.0-90.0) mm Hg ABG HCO3 (20.0-26.0) mmol/L ABG O2 Saturation (95.0-99.0) % ABG Oxyhemoglobin 83.0 L (94-98) ABG Potassium 4.8 H (3.40-4.50) mmol/L ABG Glucose 180 H (65-95) mg/dL Oxyhemoglobin (95.0-99.0) % BUN 38 H (9-20) mg/dL Glucose 249 H (75-100) mg/dL POC Glucose 139 H (70-105) mg/dL Albumin 3.2 L (3.9-5) g/dL Arterial Blood Glucose 180 H (65-95) mg/dL 03/11/21 03/11/21 Range/Units 08:06 11:29 ABG pH (7.350-7.450) pH Units POC ABG pCO2 (32.0-48.0) mmHg POC ABG pO2 (83-108) mmHg ABG pO2 (80.0-90.0) mm Hg ABG HCO3 (20.0-26.0) mmol/L ABG O2 Saturation (95.0-99.0) % ABG Oxyhemoglobin (94-98) ABG Potassium (3.40-4.50) mmol/L ABG Glucose (65-95) mg/dL Oxyhemoglobin (95.0-99.0) % BUN (9-20) mg/dL Glucose (75-100) mg/dL POC Glucose 278 H 288 H (70-105) mg/dL Albumin (3.9-5) g/dL Arterial Blood Glucose (65-95) mg/dL
[2021-03-11] MEDS: IPRATROPIUM/ALBUTEROL SULFATE 3 ML AMPUL.NEB IH SCH ×3 (14:31→21:26)
--- NOTE | 2021-03-11 15:25 | Progress Note ---
Assessment and Plan Acute hypoxemic respiratory failure, on continuous noninvasive ventilation COVID-19 infection Bilateral pneumonia History of diabetes Obesity Hypertension Leukocytosis Possible venous thromboembolic phenomena with significantly elevated D-dimers DM II Elevated serum inflammatory markers to include CRP levels, ferritin and LDH - stat ABG and address - begin Lantus 8 units SQ q24h - resume Propofol drip till able to begin weaning - add oral anti-HTNsive's - keep peep at 10 - VAP bundle addressed - continue care as below otherwise; - follow 2D ECHO - follow lower extremity dopplers - continue NIV; transition to qhs scheduled & prn daytime use - continue to wean supplemental oxygen for target O2 sat's > 90% acutely - aspiration precautions - continue bronchodilators with pulmonary hygiene per RT - continue accuchecks with glycemic control per SSI (While critically ill target blood glucose of 140-180 mg/dL; avoid hypoglycemia) - avoid nephrotoxins, renally dose all medications - avoid benzodiazepine's, reduce the possibility of delirium - complete AB's per ID rec's - sedation target for RASS 0 to -1 acutely - prn analgesia per pain score - Maintenance of sleep-wake cycle, avoid delirium - G.I. & VTE prophylaxis - PT/OT/ROM exercises - mobility protocols for pressure ulcer prophylaxis - Monitor hemodynamics closely - continue other care per attending / other consultants - discharge planning ongoing concurrently COVID SPECIFIC INTERVENTIONS - Remdesivir as per ID/Pulmonary developed protocols (receiving) - continue systemic steroids for severe COVID-19 infection empirically (Decadron) - follow repeat COVID tests results - zinc and vitamin C supplementation - Monitor inflammatory markers per facility protocol - ferritin, Ddimer, CRP - therapeutic anticoagulation per system Protocol based on d-dimer and clinical considerations (treatment dose) - Continue contact and airborne isolation .... Re-evaluate in am & prn CONDITION: CRITICAL PROGNOSIS: GUARDED CODE STATUS: FULL CODE The high probability of a clinically significant, sudden or life-threatening deterioration of the [respiratory, cardiovascular & hematologic] system(s) required my full and direct attention, intervention and personal management. The aggregate critical care time was [35] minutes without overlap. Time includes spent on; [x] Data Review and interpretation [x] Patient assessment and monitoring of vital signs [x] Documentation [x] Medication orders and management Subjective Date of service: 03/11/21 Principal diagnosis: AHRF; COVID-19 infection; DM II; Bilateral pneumonia; Obesity; HTN Interval history: Patient is seen today for: Acute hypoxemic respiratory failure; COVID-19 infection; DM II; Bilateral pneumonia; Obesity; HTN Seen and examined at bedside; 24hour events reviewed; nursing and respiratory care staff consulted; no adverse overnight events reported to me; resting in bed; well sedated; tremor (? 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; FiO2 down to 50%; no emesis or overt aspiration; BP's running high Objective Vital Signs - 12hr 03/11/21 03/11/21 03/11/21 03:29 03:30 03:32 Temperature 98.8 F Pulse Rate 108 H 110 H Pulse Rate [ From Monitor] Respiratory 5 L 26 H Rate Blood Pressure 138/90 152/90 O2 Sat by Pulse 98 100 Oximetry 03/11/21 03/11/21 03/11/21 03:40 03:50 04:00 Temperature Pulse Rate 110 H 110 H 109 H Pulse Rate [ From Monitor] Respiratory 25 H 20 20 Rate Blood Pressure 152/90 152/90 145/86 O2 Sat by Pulse 100 100 100 Oximetry 03/11/21 03/11/21 03/11/21 04:10 04:20 04:30 Temperature Pulse Rate 109 H 108 H 107 H Pulse Rate [ From Monitor] Respiratory 26 H 25 H 25 H Rate Blood Pressure 145/86 145/86 152/93 O2 Sat by Pulse 100 100 100 Oximetry 03/11/21 03/11/21 03/11/21 04:40 04:50 05:00 Temperature Pulse Rate 109 H 108 H 108 H Pulse Rate [ From Monitor] Respiratory 25 H 25 H 21 Rate Blood Pressure 152/93 152/93 148/87 O2 Sat by Pulse 100 100 100 Oximetry 03/11/21 03/11/21 03/11/21 05:10 05:20 05:30 Temperature Pulse Rate 108 H 107 H 109 H Pulse Rate [ From Monitor] Respiratory 25 H 25 H 22 Rate Blood Pressure 148/87 148/87 143/95 O2 Sat by Pulse 100 100 100 Oximetry 03/11/21 03/11/21 03/11/21 05:40 05:50 06:00 Temperature Pulse Rate 108 H 109 H 106 H Pulse Rate [ From Monitor] Respiratory 24 20 19 Rate Blood Pressure 143/95 143/95 138/94 O2 Sat by Pulse 100 100 100 Oximetry 03/11/21 03/11/21 03/11/21 06:10 06:20 06:30 Temperature Pulse Rate 94 H 94 H 94 H Pulse Rate [ From Monitor] Respiratory 20 25 H 25 H Rate Blood Pressure 138/94 138/94 148/87 O2 Sat by Pulse 100 100 100 Oximetry 03/11/21 03/11/21 03/11/21 06:40 06:50 07:00 Temperature Pulse Rate 94 H 96 H 95 H Pulse Rate [ From Monitor] Respiratory 25 H 25 H 25 H Rate Blood Pressure 148/87 148/87 153/87 O2 Sat by Pulse 100 100 99 Oximetry 03/11/21 03/11/21 03/11/21 07:10 07:20 07:30 Temperature Pulse Rate 95 H 94 H 97 H Pulse Rate [ From Monitor] Respiratory 25 H 25 H 25 H Rate Blood Pressure 153/87 153/87 148/88 O2 Sat by Pulse 100 100 100 Oximetry 03/11/21 03/11/21 03/11/21 07:40 07:50 08:00 Temperature Pulse Rate 97 H 98 H 99 H Pulse Rate [ From Monitor] Respiratory 25 H 25 H 21 Rate Blood Pressure 148/88 148/88 155/91 O2 Sat by Pulse 100 100 98 Oximetry 03/11/21 03/11/21 03/11/21 08:03 08:10 08:20 Temperature Pulse Rate 99 H 99 H Pulse Rate [ 96 H From Monitor] Respiratory 25 H 25 H 20 Rate Blood Pressure 150/88 150/88 O2 Sat by Pulse 100 100 100 Oximetry 03/11/21 03/11/21 03/11/21 08:30 08:40 08:50 Temperature Pulse Rate 102 H 100 H 101 H Pulse Rate [ From Monitor] Respiratory 25 H 25 H 20 Rate Blood Pressure 150/91 150/91 150/91 O2 Sat by Pulse 100 100 99 Oximetry 03/11/21 03/11/21 03/11/21 09:00 09:10 09:20 Temperature Pulse Rate 100 H 96 H 97 H Pulse Rate [ From Monitor] Respiratory 25 H 25 H 25 H Rate Blood Pressure 155/91 155/91 155/91 O2 Sat by Pulse 100 100 100 Oximetry 03/11/21 03/11/21 03/11/21 09:30 10:00 10:30 Temperature Pulse Rate 92 H 98 H 100 H Pulse Rate [ From Monitor] Respiratory 20 24 25 H Rate Blood Pressure 152/83 155/92 160/91 O2 Sat by Pulse 98 99 99 Oximetry 03/11/21 03/11/21 03/11/21 11:00 11:14 11:30 Temperature Pulse Rate 103 H 106 H 93 H Pulse Rate [ From Monitor] Respiratory 25 H 24 Rate Blood Pressure 161/89 161/89 133/78 O2 Sat by Pulse 99 100 Oximetry 03/11/21 03/11/21 03/11/21 12:00 12:30 13:00 Temperature 99.9 F H Pulse Rate 91 H 96 H 98 H Pulse Rate [ 99 H From Monitor] Respiratory 23 25 H 23 Rate Blood Pressure 133/78 144/78 132/75 O2 Sat by Pulse 99 98 96 Oximetry 03/11/21 03/11/21 13:30 14:01 Temperature Pulse Rate 102 H 109 H Pulse Rate [ From Monitor] Respiratory 25 H 12 Rate Blood Pressure 144/85 158/89 O2 Sat by Pulse 98 95 Oximetry Constitutional: no acute distress, other (elderly obese male without ventilator dyssynchrony at [facility]) Eyes: non-icteric ENT: oropharynx moist, other (ETT 24 cm CHAITANYA) Neck: supple, no lymphadenopathy, no JVD, other (large circumference) Effort: mildly labored Ascultation: Bilateral: rhonchi Percussion: Bilateral: not dull Cardiovascular: regular rate and rhythm Gastrointestinal: normoactive bowel sounds, soft, non-tender, non-distended (protuberant) Integumentary: rash Extremities: no cyanosis, no edema, pulses normal, no ischemia or petechiae Neurologic: non-focal exam (grossly), pupils equal and round, unable to assess, other (sedated) Psychiatric: other (unable to assess re: AMS) CBC and BMP: 03/10/21 04:29 03/11/21 04:28 ABG, PT/INR, D-dimer: ABG ABG pH 7.277 (7.320-7.450) L 03/11/21 02:09 POC ABG pCO2 55.9 mmHg (32.0-48.0) H 03/11/21 02:09 ABG pCO2 52.6 mm Hg 03/10/21 18:10 POC ABG pO2 54.4 mmHg (83-108) L 03/11/21 02:09 ABG pO2 60.4 mm Hg (80.0-90.0) L 03/10/21 18:10 POC ABG HCO3 25.5 03/11/21 02:09 ABG O2 Saturation 84.1 (0-100) 03/11/21 02:09 PT/INR, D-dimer PT 16.1 Sec. (12.2-14.9) H 03/08/21 20:24 INR 1.17 (0.87-1.13) H 03/08/21 20:24 D-Dimer > 75675 ng/mlDDU (0-234) H 03/08/21 20:24 Abnormal lab findings: Abnormal Labs 03/08/21 03/08/21 03/08/21 20:24 20:24 20:24 WBC 22.6 H RBC 5.44 H Hgb 15.7 H Hct 49.2 H Seg Neuts % (Manual) 83.0 H Lymphocytes % (Manual) 9.0 L Monocytes % (Manual) 8.0 H Nucleated RBC % Seg Neutrophils # Man 18.8 H Lymphocytes # (Manual) Monocytes # (Manual) 1.8 H PT 16.1 H INR 1.17 H D-Dimer > 30414 H ABG pH POC ABG pCO2 POC ABG pO2 ABG pO2 ABG HCO3 ABG O2 Saturation ABG Oxyhemoglobin ABG Potassium ABG Glucose Oxyhemoglobin Sodium 136 L Chloride 93.9 L BUN 29 H Glucose 208 H POC Glucose Lactic Acid Ferritin Lactate Dehydrogenase 624 H C-Reactive Protein 18.00 H NT-Pro-B Natriuret Pep 1053 H Albumin Arterial Blood Glucose Ur Specific [place] Coronavirus (PCR) 03/08/21 03/08/21 03/09/21 20:24 20:24 04:10 WBC RBC Hgb Hct Seg Neuts % (Manual) Lymphocytes % (Manual) Monocytes % (Manual) Nucleated RBC % Seg Neutrophils # Man Lymphocytes # (Manual) Monocytes # (Manual) PT INR D-Dimer ABG pH POC ABG pCO2 POC ABG pO2 ABG pO2 ABG HCO3 ABG O2 Saturation ABG Oxyhemoglobin ABG Potassium ABG Glucose Oxyhemoglobin Sodium Chloride BUN Glucose POC Glucose Lactic Acid 2.10 H* Ferritin 877.5 H Lactate Dehydrogenase C-Reactive Protein NT-Pro-B Natriuret Pep Albumin Arterial Blood Glucose Ur Specific [place] 1.041 H Coronavirus (PCR) 03/09/21 03/09/21 03/09/21 07:46 08:00 13:01 WBC RBC Hgb Hct Seg Neuts % (Manual) Lymphocytes % (Manual) Monocytes % (Manual) Nucleated RBC % Seg Neutrophils # Man Lymphocytes # (Manual) Monocytes # (Manual) PT INR D-Dimer ABG pH POC ABG pCO2 POC ABG pO2 ABG pO2 ABG HCO3 ABG O2 Saturation ABG Oxyhemoglobin ABG Potassium ABG Glucose Oxyhemoglobin Sodium Chloride BUN Glucose POC Glucose 191 H 182 H Lactic Acid Ferritin Lactate Dehydrogenase C-Reactive Protein NT-Pro-B Natriuret Pep Albumin Arterial Blood Glucose Ur Specific [place] Coronavirus (PCR) Positive A 03/09/21 03/09/21 03/09/21 15:19 17:48 18:10 WBC RBC Hgb Hct Seg Neuts % (Manual) Lymphocytes % (Manual) Monocytes % (Manual) Nucleated RBC % Seg Neutrophils # Man Lymphocytes # (Manual) Monocytes # (Manual) PT INR D-Dimer ABG pH POC ABG pCO2 POC ABG pO2 ABG pO2 47.3 L ABG HCO3 26.3 H ABG O2 Saturation 83.7 L ABG Oxyhemoglobin ABG Potassium ABG Glucose Oxyhemoglobin 82.1 L Sodium Chloride BUN 29 H Glucose 214 H POC Glucose 194 H Lactic Acid Ferritin Lactate Dehydrogenase C-Reactive Protein NT-Pro-B Natriuret Pep Albumin 3.4 L Arterial Blood Glucose Ur Specific [place] Coronavirus (PCR) 03/10/21 03/10/21 03/10/21 04:29 04:29 05:22 WBC 20.6 H RBC 5.07 H Hgb Hct 46.2 H Seg Neuts % (Manual) 94.0 H Lymphocytes % (Manual) 1.0 L Monocytes % (Manual) Nucleated RBC % 3.0 H Seg Neutrophils # Man 19.4 H Lymphocytes # (Manual) 0.2 L Monocytes # (Manual) 1.0 H PT INR D-Dimer ABG pH 7.488 H POC ABG pCO2 POC ABG pO2 ABG pO2 47.7 L ABG HCO3 ABG O2 Saturation 86.2 L ABG Oxyhemoglobin ABG Potassium ABG Glucose Oxyhemoglobin 84.6 L Sodium Chloride BUN 29 H Glucose 188 H POC Glucose Lactic Acid Ferritin Lactate Dehydrogenase C-Reactive Protein NT-Pro-B Natriuret Pep Albumin 3.3 L Arterial Blood Glucose Ur Specific [place] Coronavirus (PCR) 03/10/21 03/10/21 03/10/21 10:27 15:25 18:10 WBC RBC Hgb Hct Seg Neuts % (Manual) Lymphocytes % (Manual) Monocytes % (Manual) Nucleated RBC % Seg Neutrophils # Man Lymphocytes # (Manual) Monocytes # (Manual) PT INR D-Dimer ABG pH 7.488 H 7.343 L POC ABG pCO2 POC ABG pO2 ABG pO2 50.5 L 60.4 L ABG HCO3 27.9 H ABG O2 Saturation 87.9 L 88.7 L ABG Oxyhemoglobin ABG Potassium ABG Glucose Oxyhemoglobin 86.2 L 86.9 L Sodium Chloride BUN Glucose POC Glucose 155 H Lactic Acid Ferritin Lactate Dehydrogenase C-Reactive Protein NT-Pro-B Natriuret Pep Albumin Arterial Blood Glucose Ur Specific [place] Coronavirus (PCR) 03/10/21 03/11/21 03/11/21 18:55 00:07 02:09 WBC RBC Hgb Hct Seg Neuts % (Manual) Lymphocytes % (Manual) Monocytes % (Manual) Nucleated RBC % Seg Neutrophils # Man Lymphocytes # (Manual) Monocytes # (Manual) PT INR D-Dimer ABG pH 7.277 L POC ABG pCO2 55.9 H POC ABG pO2 54.4 L ABG pO2 ABG HCO3 ABG O2 Saturation ABG Oxyhemoglobin 83.0 L ABG Potassium 4.8 H ABG Glucose 180 H Oxyhemoglobin Sodium Chloride BUN Glucose POC Glucose 187 H 139 H Lactic Acid Ferritin Lactate Dehydrogenase C-Reactive Protein NT-Pro-B Natriuret Pep Albumin Arterial Blood Glucose 180 H Ur Specific [place] Coronavirus (PCR) 03/11/21 03/11/21 03/11/21 04:28 08:06 11:29 WBC RBC Hgb Hct Seg Neuts % (Manual) Lymphocytes % (Manual) Monocytes % (Manual) Nucleated RBC % Seg Neutrophils # Man Lymphocytes # (Manual) Monocytes # (Manual) PT INR D-Dimer ABG pH POC ABG pCO2 POC ABG pO2 ABG pO2 ABG HCO3 ABG O2 Saturation ABG Oxyhemoglobin ABG Potassium ABG Glucose Oxyhemoglobin Sodium Chloride BUN 38 H Glucose 249 H POC Glucose 278 H 288 H Lactic Acid Ferritin Lactate Dehydrogenase C-Reactive Protein NT-Pro-B Natriuret Pep Albumin 3.2 L Arterial Blood Glucose Ur Specific [place] Coronavirus (PCR) 03/11/21 15:06 WBC RBC Hgb Hct Seg Neuts % (Manual) Lymphocytes % (Manual) Monocytes % (Manual) Nucleated RBC % Seg Neutrophils # Man Lymphocytes # (Manual) Monocytes # (Manual) PT INR D-Dimer ABG pH POC ABG pCO2 POC ABG pO2 ABG pO2 ABG HCO3 ABG O2 Saturation ABG Oxyhemoglobin ABG Potassium ABG Glucose Oxyhemoglobin Sodium Chloride BUN Glucose POC Glucose 295 H Lactic Acid Ferritin Lactate Dehydrogenase C-Reactive Protein NT-Pro-B Natriuret Pep Albumin Arterial Blood Glucose Ur Specific [place] Coronavirus (PCR) Chest x-ray: image reviewed (dense bilateral infiltrates) Allied health notes reviewed: nursing
[2021-03-11 15:56] LABS: ABG Base Excess 0.5 mmol/L (-2.0-3.0); ABG HCO3 29.5 mmol/L (20.0-26.0); ABG Methemoglobin 0.9 % (0.0-1.5); ABG PCO2 67.3 mm Hg; ABG PH 7.26 pH Units (7.350-7.450); ABG PO2 53.5 mm Hg (80.0-90.0)
[2021-03-11] MEDS: hydrALAZINE 25 MG TAB PO SCH ×2 (16:52→21:26)
[2021-03-11] MEDS: INSULIN GLARGINE 100 UNITS/ML SUB-Q SCH (16:52)
--- NOTE | 2021-03-11 19:29 | Progress Note ---
<MARISABEL DU - Last Filed: 03/11/21 19:28> History Interval history: This is a 61-year-old male with HTN and DM who presented to the emergency department on 03/09 with shortness of breath and hypoxia via EMS. Patient had apparently been feeling ill for proxy 1 week prior to mentation. Upon EMS arrival patient SPO2 was in the low 70s and improved to upper 80slow 90s on nonrebreather and he was transported to [facility] in the emergency department patient was noted to be hypoxic and placed on a BiPAP with improvement to mentation and hypoxia. CXR showed bilateral patchy infiltrates. Lab work showed leukocytosis, elevated D-dimer, hyponatremia, hypochloremia and elevated COVID-19 markers with elevated BNP. CTA chest showed no pulmonary embolism. Patient was admitted to the hospitalist service as a COVID-19 PUI and started on antibiotics and Decadron with consult to infectious disease. 03/09: The patient was seen and evaluated today, and he was found to be hemodynamically stable. The patient is currently on BiPAP for possible COVID-19 pneumonia. He was started on Lovenox 1mg/kg for DVT ppx in the setting of d- dimer > 10,000. Infectious Disease was consulted. The patient is pending a TTE. 03/10: No acute events overnight, patient was intubated in the afternoon transferred to ICU 03/11: Patient started on Lantus, free water flushes increased, propofol drip resumed and oral antihypertensive added. a/p This is a 61-year-old man with HTN and DM admitted with COVID-19 pneumonia, acute hypoxic respiratory failure, sepsis Neuro: Sedated -Avoid delirium -Reorientation as needed -Sedated with propofol and fentanyl -RASS goal -1 to -2 -As needed analgesia -Maintain sleep-wake cycle -Bilateral restraints in place for safety Cardiac: h/o HTN -Blood pressure monitoring per protocol -Cardiology consulted, appreciate recommendations -Echocardiogram shows a mildly dilated ascending aorta, normal LV systolic function, mild concentric LVH, LVEF 60 to 65% -Hydralazine p.o. Respiratory: Acute hypoxic respiratory failure -CCM consulted, appreciate recommendations -CT chest shows severe patchy multifocal groundglass airspace disease -Intubated on 03/10 with a 7.50 ETT at 20 for the lips -A.m. vent settings: Assist control tidal volume 450, rate 30, PEEP 10, FiO2 100% -See RT notes for titration -A.m. ABG and CXR noted -VAP bundle -SPO2 monitoring -Albuterol as needed, Brovana and Pulmicort GI: Obesity -24 hours +300 mL -PPI -NTR consulted for tube feedings -BR: Senokot : No acute distress -Strict intake and output via Good catheter -Trend BMP Endo: h/o DM -Avoid hypoglycemia -SSI -Accu-Cheks q. 26 -Long-acting insulin, titrate as needed Heme: Leukocytosis, elevated D-dimer -Bilateral lower extremity ultrasounds negative for DVT, superficial thrombus in left gastrocnemius vein -CTA chest shows no gross pulm embolism -Trend CBC -SCDs to BLE while in bed -Transfuse hemoglobin less than 7 -Treatment dose Lovenox -Monitor for signs of bleeding ID: Severe sepsis (POA) -Infectious disease consulted, appreciate recommendation -S/p Actemra 03/10/2021 -IV remdesivir -Dexamethasone x10 days -Prophylactic anticoagulation per hospital protocol -Droplet/isolation precautions -Monitor WBC and temperature curve -03/08 blood culture x2 with no growth to date and tracheal aspirate pending The high probability of a clinically significant, sudden or life threatening deterioration of the [multi] system(s) required my full and direct attention, intervention and personal management. The aggregate critical care time was [60] minutes. This time is in addition to time spent performing reported procedures but includes the following: [x] Data Review and interpretation [x] Patient assessment and monitoring of vital signs [x] Documentation [x] Medication orders and management Hospitalist Physical - Constitutional Vitals: Temp Pulse Resp BP Pulse Ox 99.7 F H 95 H 25 H 142/75 97 03/11/21 19:27 03/11/21 18:00 03/11/21 18:00 03/11/21 18:00 03/11/21 18:00 General appearance: Present: well-nourished, obese, other (sedated) - EENT Eyes: Present: PERRL, EOM intact ENT: hearing intact, clear oral mucosa - Neck Neck: Present: normal ROM - Respiratory Respiratory effort: normal Respiratory: bilateral: diminished - Cardiovascular Rhythm: regular Heart Sounds: Present: S1 & S2. Absent: systolic murmur, diastolic murmur - Extremities Extremities: no ischemia, pulses intact, pulses symmetrical, No edema, normal temperature, normal color Peripheral Pulses: within normal limits - Abdominal General gastrointestinal: soft, non-tender, non-distended, normal bowel sounds - Integumentary Integumentary: Present: warm, dry - Psychiatric Psychiatric: other - Neurologic Neurologic: other - Allied Health Allied health notes reviewed: nursing, RT Results - Labs CBC & Chem 7: 03/10/21 04:29 03/11/21 04:28 Labs: Laboratory Last Values WBC 20.6 K/mm3 (4.5-11.0) H 03/10/21 04:29 RBC 5.07 M/mm3 (3.65-5.03) H 03/10/21 04:29 Hgb 14.9 gm/dl (11.8-15.2) 03/10/21 04:29 Hct 46.2 % (35.5-45.6) H 03/10/21 04:29 MCV 91 fl (84-94) 03/10/21 04:29 MCH 30 pg (28-32) 03/10/21 04:29 MCHC 32 % (32-34) 03/10/21 04:29 RDW 14.5 % (13.2-15.2) 03/10/21 04:29 Plt Count 300 K/mm3 (140-440) 03/10/21 04:29 Add Manual Diff Complete 03/10/21 04:29 Total Counted 100 03/10/21 04:29 Seg Neuts % (Manual) 94.0 % (40.0-70.0) H 03/10/21 04:29 Band Neutrophils % 0 % 03/10/21 04:29 Lymphocytes % (Manual) 1.0 % (13.4-35.0) L 03/10/21 04:29 Reactive Lymphs % (Man) 0 % 03/10/21 04:29 Monocytes % (Manual) 5.0 % (0.0-7.3) 03/10/21 04:29 Eosinophils % (Manual) 0 % (0.0-4.3) 03/10/21 04:29 Basophils % (Manual) 0 % (0.0-1.8) 03/10/21 04:29 Metamyelocytes % 0 % 03/10/21 04:29 Myelocytes % 0 % 03/10/21 04:29 Promyelocytes % 0 % 03/10/21 04:29 Blast Cells % 0 % 03/10/21 04:29 Nucleated RBC % 3.0 % (0.0-0.9) H 03/10/21 04:29 Seg Neutrophils # Man 19.4 K/mm3 (1.8-7.7) H 03/10/21 04:29 Band Neutrophils # 0.0 K/mm3 03/10/21 04:29 Lymphocytes # (Manual) 0.2 K/mm3 (1.2-5.4) L 03/10/21 04:29 Abs React Lymphs (Man) 0.0 K/mm3 03/10/21 04:29 Monocytes # (Manual) 1.0 K/mm3 (0.0-0.8) H 03/10/21 04:29 Eosinophils # (Manual) 0.0 K/mm3 (0.0-0.4) 03/10/21 04:29 Basophils # (Manual) 0.0 K/mm3 (0.0-0.1) 03/10/21 04:29 Metamyelocytes # 0.0 K/mm3 03/10/21 04:29 Myelocytes # 0.0 K/mm3 03/10/21 04:29 Promyelocytes # 0.0 K/mm3 03/10/21 04:29 Blast Cells # 0.0 K/mm3 03/10/21 04:29 WBC Morphology Not Reportable 03/10/21 04:29 Hypersegmented Neuts Not Reportable 03/10/21 04:29 Hyposegmented Neuts Not Reportable 03/10/21 04:29 Hypogranular Neuts Not Reportable 03/10/21 04:29 Smudge Cells Not Reportable 03/10/21 04:29 Toxic Granulation Not Reportable 03/10/21 04:29 Toxic Vacuolation Not Reportable 03/10/21 04:29 Dohle Bodies Not Reportable 03/10/21 04:29 Pelger-Huet Anomaly Not Reportable 03/10/21 04:29 Mely Rods Not Reportable 03/10/21 04:29 Platelet Estimate Consistent w auto 03/10/21 04:29 Clumped Platelets Not Reportable 03/10/21 04:29 Plt Clumps, EDTA Not Reportable 03/10/21 04:29 Large Platelets Not Reportable 03/10/21 04:29 Giant Platelets Not Reportable 03/10/21 04:29 Platelet Satelliting Not Reportable 03/10/21 04:29 Plt Morphology Comment Not Reportable 03/10/21 04:29 RBC Morphology Normal 03/10/21 04:29 Dimorphic RBCs Not Reportable 03/10/21 04:29 Polychromasia Not Reportable 03/10/21 04:29 Hypochromasia Not Reportable 03/10/21 04:29 Poikilocytosis Not Reportable 03/10/21 04:29 Anisocytosis Not Reportable 03/10/21 04:29 Microcytosis Not Reportable 03/10/21 04:29 Macrocytosis Not Reportable 03/10/21 04:29 Spherocytes Not Reportable 03/10/21 04:29 Pappenheimer Bodies Not Reportable 03/10/21 04:29 Sickle Cells Not Reportable 03/10/21 04:29 Target Cells Not Reportable 03/10/21 04:29 Tear Drop Cells Not Reportable 03/10/21 04:29 Ovalocytes Not Reportable 03/10/21 04:29 Helmet Cells Not Reportable 03/10/21 04:29 Longo-Whitmore Bodies Not Reportable 03/10/21 04:29 [place] Rings Not Reportable 03/10/21 04:29 [place] Cells Not Reportable 03/10/21 04:29 Bite Cells Not Reportable 03/10/21 04:29 Crenated Cell Not Reportable 03/10/21 04:29 Elliptocytes Not Reportable 03/10/21 04:29 Acanthocytes (Spur) Not Reportable 03/10/21 04:29 Rouleaux Not Reportable 03/10/21 04:29 Hemoglobin C Crystals Not Reportable 03/10/21 04:29 Schistocytes Not Reportable 03/10/21 04:29 Malaria parasites Not Reportable 03/10/21 04:29 Shaheen Bodies Not Reportable 03/10/21 04:29 Hem Pathologist Commnt No 03/10/21 04:29 PT 16.1 Sec. (12.2-14.9) H 03/08/21 20:24 INR 1.17 (0.87-1.13) H 03/08/21 20:24 APTT 28.0 Sec. (24.2-36.6) 03/08/21 20:24 D-Dimer > 82768 ng/mlDDU (0-234) H 03/08/21 20:24 ABG pH 7.260 pH Units (7.350-7.450) L 03/11/21 15:48 POC ABG pCO2 55.9 mmHg (32.0-48.0) H 03/11/21 02:09 ABG pCO2 67.3 mm Hg 03/11/21 15:48 POC ABG pO2 54.4 mmHg (83-108) L 03/11/21 02:09 ABG pO2 53.5 mm Hg (80.0-90.0) L 03/11/21 15:48 POC ABG HCO3 25.5 03/11/21 02:09 ABG HCO3 29.5 mmol/L (20.0-26.0) H 03/11/21 15:48 ABG O2 Saturation 84.0 % (95.0-99.0) L 03/11/21 15:48 ABG O2 Content 17.6 (0.0-44) 03/11/21 15:48 POC ABG Base Excess -2.4 03/11/21 02:09 ABG Base Excess 0.5 mmol/L (-2.0-3.0) 03/11/21 15:48 ABG Hemoglobin 15.2 gm/dl (14.0-18.0) 03/11/21 15:48 ABG Oxyhemoglobin 83.0 (94-98) L 03/11/21 02:09 ABG Carboxyhemoglobin 1.1 % (0.0-5.0) 03/11/21 15:48 ABG Methemoglobin 0.9 % (0.0-1.5) 03/11/21 15:48 ABG Sodium 139.3 mmol/L (136.0-145.0) 03/11/21 02:09 ABG Potassium 4.8 mmol/L (3.40-4.50) H 03/11/21 02:09 ABG Chloride 102.0 mmol/L (98-107) 03/11/21 02:09 ABG Glucose 180 mg/dL (65-95) H 03/11/21 02:09 Oxyhemoglobin 82.3 % (95.0-99.0) L 03/11/21 15:48 Carboxyhemoglobin 1.0 (0.5-1.5) 03/11/21 02:09 FiO2 50 % 03/11/21 15:48 FiO2 % 90.0 03/11/21 02:09 Sodium 139 mmol/L (137-145) 03/11/21 04:28 Potassium 4.6 mmol/L (3.6-5.0) D 03/11/21 04:28 Chloride 101.9 mmol/L (98-107) 03/11/21 04:28 Carbon Dioxide 26 mmol/L (22-30) 03/11/21 04:28 Anion Gap 16 mmol/L 03/11/21 04:28 BUN 38 mg/dL (9-20) H 03/11/21 04:28 Creatinine 1.3 mg/dL (0.8-1.3) 03/11/21 04:28 Estimated GFR 56 ml/min 03/11/21 04:28 BUN/Creatinine Ratio 29 % 03/11/21 04:28 Glucose 249 mg/dL (75-100) H 03/11/21 04:28 POC Glucose 295 mg/dL (70-105) H 03/11/21 15:06 Lactic Acid 1.90 mmol/L (0.7-2.0) 03/08/21 23:51 Calcium 8.8 mg/dL (8.4-10.2) 03/11/21 04:28 Ferritin 877.5 ng/mL (30.0-300.0) H 03/08/21 20:24 Total Bilirubin 0.30 mg/dL (0.1-1.2) 03/11/21 04:28 AST 16 units/L (5-40) 03/11/21 04:28 ALT 23 units/L (7-56) 03/11/21 04:28 Alkaline Phosphatase 83 units/L (35-129) 03/11/21 04:28 Lactate Dehydrogenase 624 units/L (91-180) H 03/08/21 20:24 C-Reactive Protein 18.00 mg/dL (0.00-1.30) H 03/08/21 20:24 NT-Pro-B Natriuret Pep 1053 pg/mL (0-900) H 03/08/21 20:24 Total Protein 6.9 g/dL (6.3-8.2) 03/11/21 04:28 Albumin 3.2 g/dL (3.9-5) L 03/11/21 04:28 Albumin/Globulin Ratio 0.9 % 03/11/21 04:28 Procalcitonin 0.14 ng/mL (<0.15) 03/10/21 09:47 Arterial Blood Glucose 180 mg/dL (65-95) H 03/11/21 02:09 Arterial Blood Ionized Calcium 5.0 mg/dL (4.6-5.3) 03/11/21 02:09 Urine Color Yellow (Yellow) 03/09/21 04:10 Urine Turbidity Slightly-cloudy (Clear) 03/09/21 04:10 Urine pH 5.0 (5.0-7.0) 03/09/21 04:10 Ur Specific [place] 1.041 (1.003-1.030) H 03/09/21 04:10 Urine Protein 100 mg/dl mg/dL (Negative) 03/09/21 04:10 Urine Glucose (UA) Neg mg/dL (Negative) 03/09/21 04:10 Urine Ketones Neg mg/dL (Negative) 03/09/21 04:10 Urine Blood Mod (Negative) 03/09/21 04:10 Urine Nitrite Neg (Negative) 03/09/21 04:10 Urine Bilirubin Neg (Negative) 03/09/21 04:10 Urine Urobilinogen 2.0 mg/dL (<2.0) 03/09/21 04:10 Ur Leukocyte Esterase Neg (Negative) 03/09/21 04:10 Urine WBC (Auto) 4.0 /HPF (0.0-6.0) 03/09/21 04:10 Urine RBC (Auto) 1.0 /HPF (0.0-6.0) 03/09/21 04:10 Urine Bacteria (Auto) 1+ /HPF (Negative) 03/09/21 04:10 Urine Mucus Few /HPF 03/09/21 04:10 Coronavirus (PCR) Positive (Negative) A 03/09/21 08:00 Microbiology: Microbiology 03/10/21 15:39 Tracheal Aspirate Sputum Culture - Preliminary 03/08/21 20:41 Peripheral/Venous Blood Culture - Preliminary NO GROWTH AFTER 48 HOURS 03/08/21 20:24 Peripheral/Venous Blood Culture - Preliminary NO GROWTH AFTER 48 HOURS Good/IV: Voiding Method Indwelling Catheter Active Medications - Current Medications Current Medications: Generic Name Dose Route Start Last Admin Trade Name Freq PRN Reason Stop Dose Admin Acetaminophen 650 mg 03/09/21 01:26 Acetaminophen 325 Mg Tab PO Q4H PRN Pain MILD(1-3)/Fever >100.5/RAYO Albuterol 2.5 mg 03/09/21 01:26 Albuterol 2.5 Mg/3 Ml Nebu IH Q4HRT PRN Shortness Of Breath Albuterol/Ipratropium 1 ampul 03/11/21 08:00 03/11/21 14:59 Ipratropium/Albuterol Sulfate 3 Ml Ampul.Neb IH 1 ampul TIDRT [facility] Administration Arformoterol Tartrate 15 mcg 03/11/21 20:00 Arformoterol 15 Mcg/2 Ml Nebu IH Q12HRT [facility] Ascorbic Acid 500 mg 03/10/21 14:00 03/11/21 09:45 Ascorbic Acid 500 Mg Tab PO 500 mg BID BLANCA Administration Budesonide 0.25 mg 03/11/21 20:00 Budesonide 0.25 Mg/2 Ml Nebu IH Q12HRT [facility] Dextrose 0 ml 03/09/21 01:26 Dextrose 50% In Water (25gm) 50 Ml Syringe IV Q30MIN PRN Hypoglycemia Protocol Enoxaparin Sodium 100 mg 03/09/21 10:00 03/11/21 09:46 Enoxaparin 100 Mg/1 Ml Inj SUB-Q 100 mg Q12HR BLANCA Administration Protocol Famotidine 20 mg 03/10/21 22:00 03/11/21 09:46 Famotidine 20 Mg/2 Ml Inj IV 20 mg BID BLANCA Administration Fentanyl 50 mcg 03/10/21 16:47 Fentanyl 100 Mcg/2 Ml Inj IV Q10MIN PRN ANALGESIA Hydralazine HCl 10 mg 03/09/21 01:36 03/10/21 03:56 Hydralazine 20 Mg/1 Ml Inj IV 10 mg Q6H PRN Administration Blood Pressure Hydralazine HCl 50 mg 03/11/21 17:00 03/11/21 16:52 Hydralazine 25 Mg Tab PO 50 mg Q8HR BLANCA Administration Hydromorphone HCl 0.5 mg 03/09/21 01:26 Hydromorphone 1 Mg/1 Ml Inj IV Q3H PRN Pain , Severe (7-10) Hydrophilic Ointment 1 applic 03/10/21 15:39 Lip Therapy Vaseline TP Q2HR PRN Dry Lips REMDESIVIR 100 mg/ Sodium 250 mls @ 500 mls/hr 03/10/21 21:00 03/10/21 21:00 Chloride IV 03/13/21 21:29 500 mls/hr Q24HR@2100 BLANCA Administration Dextrose 1,000 mls @ 125 mls/hr 03/10/21 12:00 03/11/21 16:36 D5w IV 125 mls/hr DIRECT BLANCA Administration Fentanyl Citrate 2,000 mcg in 100 mls @ 5.897 mls/hr 03/10/21 17:00 03/11/21 14:00 Fentanyl Drip Premix IV 3 mcg/kg/hr TITR BLANCA 17.69 mls/hr Titration Protocol 1 MCG/KG/HR Propofol 1,000 mg in 100 mls @ 3.507 mls/hr 03/11/21 17:00 03/11/21 16:53 Diprivan 10 Mg/Ml IV 5 mcg/kg/min TITR BLANCA 3.507 mls/hr Administration Protocol 5 MCG/KG/MIN Insulin Glargine 8 units 03/11/21 16:00 03/11/21 16:52 Insulin Glargine 100 Units/Ml SUB-Q 8 units DAILY [facility] Administration Insulin Human Lispro 0 unit 03/11/21 18:00 03/11/21 17:02 Insulin Lispro 100 Unit/Ml SUB-Q 6 unit Q6HR [facility] Administration Protocol Labetalol HCl 10 mg 03/10/21 17:19 03/11/21 16:54 Labetalol 20 Mg/4 Ml Inj IV Not Given Q6H [facility] Methylprednisolone Sodium Succinate 60 mg 03/10/21 22:00 03/11/21 13:56 Methylprednisolone Sod Succinate 125 Mg/2 Ml Inj IV 60 mg Q8HR [facility] Administration Morphine Sulfate 2 mg 03/09/21 01:26 Morphine 2 Mg/1 Ml Inj IV Q4H PRN Pain, Moderate (4-6) Multi-Ingred Cream/Lotion/Oil/Oint 1 applic 03/10/21 15:39 Mineral Oil/Petrolatum, White Ophth Oint 3.5 Gm OU Q4HR PRN Dry Eye(s) Ondansetron HCl 4 mg 03/09/21 01:26 Ondansetron 4 Mg/2 Ml Inj IV Q8H PRN Nausea And Vomiting Senna/Docusate Sodium 1 tab 03/10/21 22:00 03/11/21 09:45 Sennosides/Docusate Sodium 8.6/50 Mg Tab FEEDTUBE 1 tab BID BLANCA Administration Sodium Chloride 10 ml 03/09/21 10:00 03/11/21 09:46 Sodium Chloride 0.9% 10 Ml Flush Syringe IV 10 ml BID BLANCA Administration Sodium Chloride 10 ml 03/09/21 01:26 Sodium Chloride 0.9% 10 Ml Flush Syringe IV PRN PRN LINE FLUSH Sodium Chloride 50 ml 03/09/21 21:00 03/10/21 21:00 Sodium Chloride 0.9% 50 Ml Ivpb IV 03/13/21 21:01 50 ml Q24HR@2100 BLANCA Administration Zinc Sulfate 220 mg 03/10/21 14:00 03/11/21 09:45 Zinc Sulfate 220 Mg Cap PO 220 mg BID BLANCA Administration Nutrition/Malnutrition Assess - Dietary Evaluation Nutrition/Malnutrition Findings: Nutrition Notes Start: 03/09/21 08:49 Freq: Status: Active Protocol: Document 03/11/21 09:59 BRIAN (Rec: 03/11/21 10:01 BRIAN [id number]) Nutrition Notes Need for Assessment generated from: orthotic/prosthetic clinician,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 Pt currently being followed by RD. Nutrition Intervention Follow-Up By: 03/13/21 Additional Comments F/U: new TF, vent status <RAFAEL DOMINGUEZ - Last Filed: 03/15/21 21:30> History Interval history: I saw and evaluated the patient. Discussed with the nurse practitioner and agree with their findings and plan as documented in this note. Hospitalist Physical - Constitutional Vitals: Temp Pulse Resp BP Pulse Ox 99.6 F 111 H 19 128/75 93 03/15/21 20:00 03/15/21 21:00 03/15/21 21:00 03/15/21 21:00 03/15/21 21:00 Results - Labs CBC & Chem 7: 03/15/21 15:06 03/15/21 15:07 Labs: Laboratory Last Values WBC 11.6 K/mm3 (4.5-11.0) H 03/14/21 05:50 RBC 4.53 M/mm3 (3.65-5.03) 03/14/21 05:50 Hgb 14.3 gm/dl (11.8-15.2) 03/15/21 15:06 Hct 44.6 % (35.5-45.6) 03/15/21 15:06 MCV 92 fl (84-94) 03/14/21 05:50 MCH 30 pg (28-32) 03/14/21 05:50 MCHC 32 % (32-34) 03/14/21 05:50 RDW 14.5 % (13.2-15.2) 03/14/21 05:50 Plt Count 332 K/mm3 (140-440) 03/14/21 05:50 Add Manual Diff Complete 03/10/21 04:29 Total Counted 100 03/10/21 04:29 Seg Neuts % (Manual) 94.0 % (40.0-70.0) H 03/10/21 04:29 Band Neutrophils % 0 % 03/10/21 04:29 Lymphocytes % (Manual) 1.0 % (13.4-35.0) L 03/10/21 04:29 Reactive Lymphs % (Man) 0 % 03/10/21 04:29 Monocytes % (Manual) 5.0 % (0.0-7.3) 03/10/21 04:29 Eosinophils % (Manual) 0 % (0.0-4.3) 03/10/21 04:29 Basophils % (Manual) 0 % (0.0-1.8) 03/10/21 04:29 Metamyelocytes % 0 % 03/10/21 04:29 Myelocytes % 0 % 03/10/21 04:29 Promyelocytes % 0 % 03/10/21 04:29 Blast Cells % 0 % 03/10/21 04:29 Nucleated RBC % 3.0 % (0.0-0.9) H 03/10/21 04:29 Seg Neutrophils # Man 19.4 K/mm3 (1.8-7.7) H 03/10/21 04:29 Band Neutrophils # 0.0 K/mm3 03/10/21 04:29 Lymphocytes # (Manual) 0.2 K/mm3 (1.2-5.4) L 03/10/21 04:29 Abs React Lymphs (Man) 0.0 K/mm3 03/10/21 04:29 Monocytes # (Manual) 1.0 K/mm3 (0.0-0.8) H 03/10/21 04:29 Eosinophils # (Manual) 0.0 K/mm3 (0.0-0.4) 03/10/21 04:29 Basophils # (Manual) 0.0 K/mm3 (0.0-0.1) 03/10/21 04:29 Metamyelocytes # 0.0 K/mm3 03/10/21 04:29 Myelocytes # 0.0 K/mm3 03/10/21 04:29 Promyelocytes # 0.0 K/mm3 03/10/21 04:29 Blast Cells # 0.0 K/mm3 03/10/21 04:29 WBC Morphology Not Reportable 03/10/21 04:29 Hypersegmented Neuts Not Reportable 03/10/21 04:29 Hyposegmented Neuts Not Reportable 03/10/21 04:29 Hypogranular Neuts Not Reportable 03/10/21 04:29 Smudge Cells Not Reportable 03/10/21 04:29 Toxic Granulation Not Reportable 03/10/21 04:29 Toxic Vacuolation Not Reportable 03/10/21 04:29 Dohle Bodies Not Reportable 03/10/21 04:29 Pelger-Huet Anomaly Not Reportable 03/10/21 04:29 Mely Rods Not Reportable 03/10/21 04:29 Platelet Estimate Consistent w auto 03/10/21 04:29 Clumped Platelets Not Reportable 03/10/21 04:29 Plt Clumps, EDTA Not Reportable 03/10/21 04:29 Large Platelets Not Reportable 03/10/21 04:29 Giant Platelets Not Reportable 03/10/21 04:29 Platelet Satelliting Not Reportable 03/10/21 04:29 Plt Morphology Comment Not Reportable 03/10/21 04:29 RBC Morphology Normal 03/10/21 04:29 Dimorphic RBCs Not Reportable 03/10/21 04:29 Polychromasia Not Reportable 03/10/21 04:29 Hypochromasia Not Reportable 03/10/21 04:29 Poikilocytosis Not Reportable 03/10/21 04:29 Anisocytosis Not Reportable 03/10/21 04:29 Microcytosis Not Reportable 03/10/21 04:29 Macrocytosis Not Reportable 03/10/21 04:29 Spherocytes Not Reportable 03/10/21 04:29 Pappenheimer Bodies Not Reportable 03/10/21 04:29 Sickle Cells Not Reportable 03/10/21 04:29 Target Cells Not Reportable 03/10/21 04:29 Tear Drop Cells Not Reportable 03/10/21 04:29 Ovalocytes Not Reportable 03/10/21 04:29 Helmet Cells Not Reportable 03/10/21 04:29 Longo-Whitmore Bodies Not Reportable 03/10/21 04:29 [place] Rings Not Reportable 03/10/21 04:29 [place] Cells Not Reportable 03/10/21 04:29 Bite Cells Not Reportable 03/10/21 04:29 Crenated Cell Not Reportable 03/10/21 04:29 Elliptocytes Not Reportable 03/10/21 04:29 Acanthocytes (Spur) Not Reportable 03/10/21 04:29 Rouleaux Not Reportable 03/10/21 04:29 Hemoglobin C Crystals Not Reportable 03/10/21 04:29 Schistocytes Not Reportable 03/10/21 04:29 Malaria parasites Not Reportable 03/10/21 04:29 Shaheen Bodies Not Reportable 03/10/21 04:29 Hem Pathologist Commnt No 03/10/21 04:29 PT 16.1 Sec. (12.2-14.9) H 03/08/21 20:24 INR 1.17 (0.87-1.13) H 03/08/21 20:24 APTT 28.0 Sec. (24.2-36.6) 03/08/21 20:24 D-Dimer 1781.79 ng/mlDDU (0-234) H 03/15/21 06:06 ABG pH 7.410 pH Units (7.350-7.450) 03/15/21 14:05 POC ABG pCO2 71.9 mmHg (32.0-48.0) H 03/12/21 21:54 ABG pCO2 59.1 mm Hg 03/15/21 14:05 POC ABG pO2 53.6 mmHg (83-108) L 03/12/21 21:54 ABG pO2 52.1 mm Hg (80.0-90.0) L 03/15/21 14:05 POC ABG HCO3 30.0 03/12/21 21:54 ABG HCO3 36.6 mmol/L (20.0-26.0) H 03/15/21 14:05 ABG O2 Saturation 87.6 % (95.0-99.0) L 03/15/21 14:05 ABG O2 Content 18.3 (0.0-44) 03/15/21 14:05 POC ABG Base Excess 0.5 03/12/21 21:54 ABG Base Excess 9.5 mmol/L (-2.0-3.0) H 03/15/21 14:05 ABG Hemoglobin 15.2 gm/dl (14.0-18.0) 03/15/21 14:05 ABG Oxyhemoglobin 84.8 (94-98) L 03/12/21 21:54 ABG Carboxyhemoglobin 1.4 % (0.0-5.0) 03/15/21 14:05 ABG Methemoglobin 0.8 % (0.0-1.5) 03/15/21 14:05 ABG Sodium 134.2 mmol/L (136.0-145.0) L 03/12/21 21:54 ABG Potassium 4.9 mmol/L (3.40-4.50) H 03/12/21 21:54 ABG Chloride 99.0 mmol/L (98-107) 03/12/21 21:54 ABG Glucose 306 mg/dL (65-95) H 03/12/21 21:54 Oxyhemoglobin 85.7 % (95.0-99.0) L 03/15/21 14:05 Carboxyhemoglobin 0.6 (0.5-1.5) 03/12/21 21:54 FiO2 40 % 03/15/21 14:05 FiO2 % 50.0 03/12/21 21:54 Sodium 148 mmol/L (137-145) H 03/15/21 06:06 Potassium 4.9 mmol/L (3.6-5.0) 03/15/21 15:07 Chloride 108.0 mmol/L (98-107) H 03/15/21 06:06 Carbon Dioxide 31 mmol/L (22-30) H 03/15/21 06:06 Anion Gap 15 mmol/L 03/15/21 06:06 BUN 46 mg/dL (9-20) H 03/15/21 06:06 Creatinine 1.0 mg/dL (0.8-1.3) 03/15/21 06:06 Estimated GFR > 60 ml/min 03/15/21 06:06 BUN/Creatinine Ratio 46 % 03/15/21 06:06 Glucose 139 mg/dL (75-100) H 03/15/21 06:06 POC Glucose 263 mg/dL (70-105) H 03/15/21 17:09 Lactic Acid 1.90 mmol/L (0.7-2.0) 03/08/21 23:51 Calcium 8.9 mg/dL (8.4-10.2) 03/15/21 06:06 Phosphorus 4.80 mg/dL (2.5-4.5) H D 03/15/21 06:06 Magnesium 3.00 mg/dL (1.7-2.3) H 03/15/21 06:06 Ferritin 976.4 ng/mL (30.0-300.0) H 03/15/21 04:00 Total Bilirubin 0.20 mg/dL (0.1-1.2) 03/12/21 08:03 AST 10 units/L (5-40) 03/12/21 08:03 ALT 16 units/L (7-56) 03/12/21 08:03 Alkaline Phosphatase 77 units/L (35-129) 03/12/21 08:03 Lactate Dehydrogenase 630 units/L (91-180) H 03/15/21 06:06 C-Reactive Protein 0.80 mg/dL (0.00-1.30) 03/15/21 06:06 NT-Pro-B Natriuret Pep 1053 pg/mL (0-900) H 03/08/21 20:24 Total Protein 6.0 g/dL (6.3-8.2) L 03/12/21 08:03 Albumin 2.9 g/dL (3.9-5) L 03/12/21 08:03 Albumin/Globulin Ratio 0.9 % 03/12/21 08:03 Procalcitonin 0.14 ng/mL (<0.15) 03/10/21 09:47 Arterial Blood Glucose 306 mg/dL (65-95) H 03/12/21 21:54 Arterial Blood Ionized Calcium 5.0 mg/dL (4.6-5.3) 03/12/21 21:54 Urine Color Yellow (Yellow) 03/09/21 04:10 Urine Turbidity Slightly-cloudy (Clear) 03/09/21 04:10 Urine pH 5.0 (5.0-7.0) 03/09/21 04:10 Ur Specific [place] 1.041 (1.003-1.030) H 03/09/21 04:10 Urine Protein 100 mg/dl mg/dL (Negative) 03/09/21 04:10 Urine Glucose (UA) Neg mg/dL (Negative) 03/09/21 04:10 Urine Ketones Neg mg/dL (Negative) 03/09/21 04:10 Urine Blood Mod (Negative) 03/09/21 04:10 Urine Nitrite Neg (Negative) 03/09/21 04:10 Urine Bilirubin Neg (Negative) 03/09/21 04:10 Urine Urobilinogen 2.0 mg/dL (<2.0) 03/09/21 04:10 Ur Leukocyte Esterase Neg (Negative) 03/09/21 04:10 Urine WBC (Auto) 4.0 /HPF (0.0-6.0) 03/09/21 04:10 Urine RBC (Auto) 1.0 /HPF (0.0-6.0) 03/09/21 04:10 Urine Bacteria (Auto) 1+ /HPF (Negative) 03/09/21 04:10 Urine Mucus Few /HPF 03/09/21 04:10 Coronavirus (PCR) Positive (Negative) A 03/09/21 08:00 Good/IV: Voiding Method Indwelling Catheter Active Medications - Current Medications Current Medications: Generic Name Dose Route Start Last Admin Trade Name Freq PRN Reason Stop Dose Admin Acetaminophen 650 mg 03/09/21 01:26 03/14/21 17:24 Acetaminophen 325 Mg Tab PO 650 mg Q4H PRN Administration Pain MILD(1-3)/Fever >100.5/RAYO Albuterol 2.5 mg 03/09/21 01:26 Albuterol 2.5 Mg/3 Ml Nebu IH Q4HRT PRN Shortness Of Breath Albuterol/Ipratropium 1 ampul 03/11/21 08:00 03/15/21 19:49 Ipratropium/Albuterol Sulfate 3 Ml Ampul.Neb IH 1 ampul TIDRT BLANCA Administration Arformoterol Tartrate 15 mcg 03/11/21 20:00 03/15/21 19:49 Arformoterol 15 Mcg/2 Ml Nebu IH 15 mcg Q12HRT BLANCA Administration Ascorbic Acid 500 mg 03/10/21 14:00 03/15/21 09:02 Ascorbic Acid 500 Mg Tab PO 500 mg BID BLANCA Administration Budesonide 0.25 mg 03/11/21 20:00 03/15/21 19:49 Budesonide 0.25 Mg/2 Ml Nebu IH 0.25 mg Q12HRT BLANCA Administration Dextrose 0 ml 03/09/21 01:26 Dextrose 50% In Water (25gm) 50 Ml Syringe IV Q30MIN PRN Hypoglycemia Protocol Enoxaparin Sodium 100 mg 03/09/21 10:00 03/15/21 09:02 Enoxaparin 100 Mg/1 Ml Inj SUB-Q 100 mg Q12HR BLANCA Administration Protocol Famotidine 20 mg 03/12/21 22:00 03/15/21 09:02 Famotidine 20 Mg Tab FEEDTUBE 20 mg BID BLANCA Administration Fentanyl 50 mcg 03/10/21 16:47 Fentanyl 100 Mcg/2 Ml Inj IV Q10MIN PRN ANALGESIA Hydralazine HCl 10 mg 03/09/21 01:36 03/10/21 03:56 Hydralazine 20 Mg/1 Ml Inj IV 10 mg Q6H PRN Administration Blood Pressure Hydralazine HCl 50 mg 03/11/21 17:00 03/15/21 14:00 Hydralazine 25 Mg Tab PO Not Given Q8HR BLANCA Hydrophilic Ointment 1 applic 03/10/21 15:39 Lip Therapy Vaseline TP Q2HR PRN Dry Lips Fentanyl Citrate 2,000 mcg in 100 mls @ 5.897 mls/hr 03/10/21 17:00 03/15/21 18:15 Fentanyl Drip Premix IV 4 mcg/kg/hr TITR BLANCA 23.587 mls/hr Administration Protocol 1 MCG/KG/HR Propofol 1,000 mg in 100 mls @ 3.507 mls/hr 03/11/21 17:00 03/15/21 14:50 Diprivan 10 Mg/Ml IV 35 mcg/kg/min TITR BLANCA 24.549 mls/hr Administration Protocol 5 MCG/KG/MIN Insulin Glargine 25 units 03/14/21 10:00 03/15/21 09:03 Insulin Glargine 100 Units/Ml SUB-Q 25 units BID [facility] Administration Insulin Human Lispro 0 unit 03/11/21 18:00 03/15/21 18:14 Insulin Lispro 100 Unit/Ml SUB-Q 6 unit Q6HR [facility] Administration Protocol Insulin Human Regular 5 units 03/14/21 12:00 03/15/21 18:14 Insulin Regular, Human 100 Units/1 Ml SUB-Q 5 units Q6HR [facility] Administration Labetalol HCl 10 mg 03/12/21 21:13 Labetalol 20 Mg/4 Ml Inj IV Q6H PRN Blood Pressure Methylprednisolone Sodium Succinate 60 mg 03/10/21 22:00 03/15/21 13:03 Methylprednisolone Sod Succinate 125 Mg/2 Ml Inj IV 60 mg Q8HR BLANCA Administration Midazolam HCl 2 mg 03/15/21 08:49 03/15/21 17:56 Midazolam 2 Mg/2 Ml Inj IV 2 mg Q2H PRN Administration VENT SYNCHRONY Multi-Ingred Cream/Lotion/Oil/Oint 1 applic 03/10/21 15:39 Mineral Oil/Petrolatum, White Ophth Oint 3.5 Gm OU Q4HR PRN Dry Eye(s) Ondansetron HCl 4 mg 03/09/21 01:26 Ondansetron 4 Mg/2 Ml Inj IV Q8H PRN Nausea And Vomiting Senna/Docusate Sodium 1 tab 03/10/21 22:00 03/15/21 13:04 Sennosides/Docusate Sodium 8.6/50 Mg Tab FEEDTUBE Not Given BID [facility] Sodium Chloride 10 ml 03/09/21 10:00 03/15/21 10:04 Sodium Chloride 0.9% 10 Ml Flush Syringe IV 10 ml BID BLANCA Administration Sodium Chloride 10 ml 03/09/21 01:26 Sodium Chloride 0.9% 10 Ml Flush Syringe IV PRN PRN LINE FLUSH Zinc Sulfate 220 mg 03/10/21 14:00 03/15/21 09:02 Zinc Sulfate 220 Mg Cap PO 220 mg BID BLANCA Administration Nutrition/Malnutrition Assess - Dietary Evaluation Nutrition/Malnutrition Findings: Nutrition Notes Start: 03/09/21 08: 49 Freq: Status: Active Protocol: Document 03/14/21 10:48 BRYANNA (Rec: 03/14/21 11:07 BRYANNA [id number]) Nutrition Notes Initial or Follow up Brief Note Current Diet TF-Glucerna 1.2 Tyson @ 66 ml/hr (since L 03/14). Height 5 ft 11 in Weight 117 kg [place] Body Weight (kg) 78.18 BMI 35.9 Weight change and time frame No body weight change reported . Weight Status Obese Subjective/Other Information RD consult for TF change requested by RN. RN states that Pt's bG has been high and request a change to Glucerna, since no kidney complications are present. Percent of energy/protein needs met: Prescribed Glucerna 1.2 Tyson @ 66 ml/hr provides for energy/ protein needs (1911 Kcal/96 g) during LOS, 100% Kcal; 75% AA . #1 Nutrition Diagnosis Inadequate oral intake Comments: RN states that Pt's bG has been high and request a change to Glucerna, since no kidney complications are present. Diagnosis Progress(for reassessment Continues documentation) Is patient on ventilator? Yes Is Patient Ambulatory and/or Out of Bed No REE-([facility]-confined to bed) [phone] Calculation Used for Recommendations 70-80% energy needs Additional Notes Energy needs: 8788-6304 kcal/ day Pro needs 1.3g/kg adjBW: 127g/ day Fluid needs 1ml/kcal Nutrition Intervention Nutrition Support: Change to Glucerna 1.2 Tyson @66 ml/hr. Flush: 100 ml water Q 4 hr, or as per MD. Kcal 1,911 Protein (gm) 96 Carbohydrates (gm) 182 Fat (gm) 96 Fluid (mL) 1,282 Fiber (gm) 26 % RDI: 100% Kcal; 75% AA. Goal #1 Provide at least 75% of energy /protein needs through Enteral Feeding during LOS. Follow-Up By: 03/17/21 Additional Comments Continue monitoring TF tolerance and BM.
[2021-03-11] MEDS: REMDESIVIR 100 MG in SODIUM CHLORIDE 0.9% 250ML 250 ML IV SCH (21:25)
[2021-03-11] MEDS: BUDESONIDE 0.25 MG/2 ML NEBU IH SCH (21:26)
[2021-03-11] MEDS: ARFORMOTEROL 15 MCG/2 ML NEBU IH SCH (21:26)
[2021-03-11] MEDS: SODIUM CHLORIDE 0.9% 50 ML IVPB IV SCH (21:28)
[2021-03-12] MEDS: INSULIN LISPRO 100 UNIT/ML SUB-Q SCH ×4 (00:30→18:10)
[2021-03-12] MEDS: DEXTROSE 5% IN WATER 1,000 ML IV SCH (00:33)
[2021-03-12] MEDS: SENNOSIDES/DOCUSATE SODIUM 8.6/50 MG TAB FEEDTUBE SCH ×3 (02:36→21:47)
[2021-03-12] MEDS: fentaNYL DRIP Premix 2,000 MCG/100 ML BAG IV SCH ×3 (04:25→20:31)
[2021-03-12] MEDS: hydrALAZINE 25 MG TAB PO SCH ×3 (05:39→21:48)
[2021-03-12] MEDS: methylPREDNISolone Sod Succinate 125 MG/2 ML INJ IV SCH ×3 (05:40→21:48)
[2021-03-12] MEDS: BUDESONIDE 0.25 MG/2 ML NEBU IH SCH (07:22)
[2021-03-12] MEDS: ARFORMOTEROL 15 MCG/2 ML NEBU IH SCH ×2 (07:22→19:57)
[2021-03-12] MEDS: IPRATROPIUM/ALBUTEROL SULFATE 3 ML AMPUL.NEB IH SCH ×3 (07:22→19:57)
[2021-03-12 08:28] LABS: Hematocrit 43.2 % (35.5-45.6); Hemoglobin 13.7 gm/dl (11.8-15.2); Mean Corpuscular HGB Conc 32 % (32-34); Mean Corpuscular Volume 93 fl (84-94); Platelet Count 289 K/mm3 (140-440); Red Blood Count 4.64 M/mm3 (3.65-5.03); Red Cell Distribution Width 14.7 % (13.2-15.2)
[2021-03-12 08:52] LABS: Albumin 2.9 g/dL (3.9-5); Calcium 8.4 mg/dL (8.4-10.2)
[2021-03-12] MEDS: ENOXAPARIN 100 MG/1 ML INJ SUB-Q SCH ×2 (09:48→21:47)
[2021-03-12] MEDS: INSULIN GLARGINE 100 UNITS/ML SUB-Q SCH (09:48)
[2021-03-12] MEDS: ZINC SULFATE 220 MG CAP PO SCH ×2 (09:49→21:47)
[2021-03-12] MEDS: ASCORBIC ACID 500 MG TAB PO SCH ×2 (09:51→21:47)
[2021-03-12] MEDS: FAMOTIDINE 20 MG/2 ML INJ IV SCH (09:51)
[2021-03-12 11:05] LABS: ABG Base Excess 2.3 mmol/L (-2.0-3.0); ABG Methemoglobin 0.8 % (0.0-1.5); ABG Oxygen Saturation 93.9 % (95.0-99.0); ABG PCO2 74.9 mm Hg; ABG PH 7.248 pH Units (7.350-7.450); ABG PO2 73.7 mm Hg (80.0-90.0)
[2021-03-12] MEDS ORDERED: INSULIN GLARGINE 100 UNITS/ML SUB-Q ONE ×2 (12:22→18:38)
--- NOTE | 2021-03-12 13:35 | Progress Note ---
<FLORIANMARISABEL ChambersLester - Last Filed: 03/12/21 17:48> Assessment and Plan Assessment and plan: This is a 61-year-old man with HTN and DM admitted with COVID-19 pneumonia, acute hypoxic respiratory failure, sepsis Neuro: Sedated -Avoid delirium -Reorientation as needed -Sedated with propofol and fentanyl -RASS goal -1 to -2 -As needed analgesia -Maintain sleep-wake cycle -Bilateral restraints in place for safety Cardiac: h/o HTN -Blood pressure monitoring per protocol -Cardiology consulted, appreciate recommendations -Echocardiogram shows a mildly dilated ascending aorta, normal LV systolic function, mild concentric LVH, LVEF 60 to 65% -Hydralazine p.o. Respiratory: Acute hypoxic respiratory failure -CCM consulted, appreciate recommendations -CT chest shows severe patchy multifocal groundglass airspace disease -Intubated on 03/10 with a 7.50 ETT at 20 for the lips -A.m. vent settings: Assist control tidal volume 450, rate 30, PEEP 10, FiO2 60% -See RT notes for titration -A.m. ABG and CXR noted -VAP bundle -SPO2 monitoring -Albuterol as needed, Brovana and Pulmicort GI: Obesity -24 hours +1546 mL -PPI -NTR consulted for tube feedings -d/c ivf today as TF at goal -BR: Senokot : Elevated K -K 5-monitor -Strict intake and output via Good catheter -Trend BMP ID: Severe sepsis (POA) -Infectious disease consulted, appreciate recommendation -S/p Actemra 03/10/2021 -IV remdesivir for 5 days -Dexamethasone x10 days -Prophylactic anticoagulation per hospital protocol -Droplet/isolation precautions -Monitor WBC and temperature curve -03/08 blood culture x2 with no growth to date and tracheal aspirate pending Endo: h/o DM -Avoid hypoglycemia -SSI -Accu-Cheks q. 6 -Long-acting insulin, titrate as needed Heme: Leukocytosis, elevated D-dimer -Bilateral lower extremity ultrasounds negative for DVT, superficial thrombus in left gastrocnemius vein -CTA chest shows no gross pulm embolism -Trend CBC -SCDs to BLE while in bed -Transfuse hemoglobin less than 7 -Treatment dose Lovenox -Monitor for signs of bleeding The high probability of a clinically significant, sudden or life threatening deterioration of the [multi] system(s) required my full and direct attention, intervention and personal management. The aggregate critical care time was [90] minutes. This time is in addition to time spent performing reported procedures but includes the following: [x] Data Review and interpretation [x] Patient assessment and monitoring of vital signs [x] Documentation [x] Medication orders and management Disposition Plan: icu Total Time Spent with Patient (Minutes): 90 History Interval history: This is a 61-year-old male with HTN and DM who presented to the emergency department on 03/09 with shortness of breath and hypoxia via EMS. Patient had apparently been feeling ill for proxy 1 week prior to mentation. Upon EMS arrival patient SPO2 was in the low 70s and improved to upper 80slow 90s on nonrebreather and he was transported to [facility] in the emergency department patient was noted to be hypoxic and placed on a BiPAP with improvement to mentation and hypoxia. CXR showed bilateral patchy infiltrates. Lab work showed leukocytosis, elevated D-dimer, hyponatremia, hypochloremia and elevated COVID-19 markers with elevated BNP. CTA chest showed no pulmonary embolism. Patient was admitted to the hospitalist service as a COVID-19 PUI and started on antibiotics and Decadron with consult to infectious disease. 03/09: The patient was seen and evaluated today, and he was found to be hemodynamically stable. The patient is currently on BiPAP for possible COVID-19 pneumonia. He was started on Lovenox 1mg/kg for DVT ppx in the setting of d- dimer > 10,000. Infectious Disease was consulted. The patient is pending a TTE. 03/10: No acute events overnight, patient was intubated in the afternoon transferred to ICU 03/11: Patient started on Lantus, free water flushes increased, propofol drip resumed and oral antihypertensive added. 03/12: lantus increased, k at 5, will monitor. I updated his family and his stated that he is not vaccinated. He does have HTN and she will call the RN to update home medications. She did say he takes bystolic and amlopine. She inq uired about ventilator and lab work. She had no further questions. Hospitalist Physical - Physical exam Narrative exam: General appearance: Present: well-nourished, obese, other (sedated) - EENT Eyes: Present: PERRL, EOM intact ENT: hearing intact, clear oral mucosa - Neck Neck: Present: normal ROM - Respiratory Respiratory effort: normal Respiratory: bilateral: diminished - Cardiovascular Rhythm: regular Heart Sounds: Present: S1 & S2. Absent: systolic murmur, diastolic murmur - Extremities Extremities: no ischemia, pulses intact, pulses symmetrical, No edema, normal temperature, normal color Peripheral Pulses: within normal limits - Abdominal General gastrointestinal: soft, non-tender, non-distended, normal bowel sounds - Integumentary Integumentary: Present: warm, dry - Psychiatric Psychiatric: other - Neurologic Neurologic: other - Allied Health Allied health notes reviewed: nursing, RT - Constitutional Vitals: Temp Pulse Resp BP Pulse Ox 100.4 F H 91 H 25 H 121/59 100 03/12/21 03:57 03/12/21 11:33 03/12/21 11:30 03/12/21 11:33 03/12/21 11:33 General appearance: Present: well-nourished, obese, other (sedated) Results - Labs CBC & Chem 7: 03/12/21 08:03 03/12/21 08:03 Labs: Laboratory Last Values WBC 14.6 K/mm3 (4.5-11.0) H 03/12/21 08:03 RBC 4.64 M/mm3 (3.65-5.03) 03/12/21 08:03 Hgb 13.7 gm/dl (11.8-15.2) 03/12/21 08:03 Hct 43.2 % (35.5-45.6) 03/12/21 08:03 MCV 93 fl (84-94) 03/12/21 08:03 MCH 30 pg (28-32) 03/12/21 08:03 MCHC 32 % (32-34) 03/12/21 08:03 RDW 14.7 % (13.2-15.2) 03/12/21 08:03 Plt Count 289 K/mm3 (140-440) 03/12/21 08:03 Add Manual Diff Complete 03/10/21 04:29 Total Counted 100 03/10/21 04:29 Seg Neuts % (Manual) 94.0 % (40.0-70.0) H 03/10/21 04:29 Band Neutrophils % 0 % 03/10/21 04:29 Lymphocytes % (Manual) 1.0 % (13.4-35.0) L 03/10/21 04:29 Reactive Lymphs % (Man) 0 % 03/10/21 04:29 Monocytes % (Manual) 5.0 % (0.0-7.3) 03/10/21 04:29 Eosinophils % (Manual) 0 % (0.0-4.3) 03/10/21 04:29 Basophils % (Manual) 0 % (0.0-1.8) 03/10/21 04:29 Metamyelocytes % 0 % 03/10/21 04:29 Myelocytes % 0 % 03/10/21 04:29 Promyelocytes % 0 % 03/10/21 04:29 Blast Cells % 0 % 03/10/21 04:29 Nucleated RBC % 3.0 % (0.0-0.9) H 03/10/21 04:29 Seg Neutrophils # Man 19.4 K/mm3 (1.8-7.7) H 03/10/21 04:29 Band Neutrophils # 0.0 K/mm3 03/10/21 04:29 Lymphocytes # (Manual) 0.2 K/mm3 (1.2-5.4) L 03/10/21 04:29 Abs React Lymphs (Man) 0.0 K/mm3 03/10/21 04:29 Monocytes # (Manual) 1.0 K/mm3 (0.0-0.8) H 03/10/21 04:29 Eosinophils # (Manual) 0.0 K/mm3 (0.0-0.4) 03/10/21 04:29 Basophils # (Manual) 0.0 K/mm3 (0.0-0.1) 03/10/21 04:29 Metamyelocytes # 0.0 K/mm3 03/10/21 04:29 Myelocytes # 0.0 K/mm3 03/10/21 04:29 Promyelocytes # 0.0 K/mm3 03/10/21 04:29 Blast Cells # 0.0 K/mm3 03/10/21 04:29 WBC Morphology Not Reportable 03/10/21 04:29 Hypersegmented Neuts Not Reportable 03/10/21 04:29 Hyposegmented Neuts Not Reportable 03/10/21 04:29 Hypogranular Neuts Not Reportable 03/10/21 04:29 Smudge Cells Not Reportable 03/10/21 04:29 Toxic Granulation Not Reportable 03/10/21 04:29 Toxic Vacuolation Not Reportable 03/10/21 04:29 Dohle Bodies Not Reportable 03/10/21 04:29 Pelger-Huet Anomaly Not Reportable 03/10/21 04:29 Mely Rods Not Reportable 03/10/21 04:29 Platelet Estimate Consistent w auto 03/10/21 04:29 Clumped Platelets Not Reportable 03/10/21 04:29 Plt Clumps, EDTA Not Reportable 03/10/21 04:29 Large Platelets Not Reportable 03/10/21 04:29 Giant Platelets Not Reportable 03/10/21 04:29 Platelet Satelliting Not Reportable 03/10/21 04:29 Plt Morphology Comment Not Reportable 03/10/21 04:29 RBC Morphology Normal 03/10/21 04:29 Dimorphic RBCs Not Reportable 03/10/21 04:29 Polychromasia Not Reportable 03/10/21 04:29 Hypochromasia Not Reportable 03/10/21 04:29 Poikilocytosis Not Reportable 03/10/21 04:29 Anisocytosis Not Reportable 03/10/21 04:29 Microcytosis Not Reportable 03/10/21 04:29 Macrocytosis Not Reportable 03/10/21 04:29 Spherocytes Not Reportable 03/10/21 04:29 Pappenheimer Bodies Not Reportable 03/10/21 04:29 Sickle Cells Not Reportable 03/10/21 04:29 Target Cells Not Reportable 03/10/21 04:29 Tear Drop Cells Not Reportable 03/10/21 04:29 Ovalocytes Not Reportable 03/10/21 04:29 Helmet Cells Not Reportable 03/10/21 04:29 [place] Bodies Not Reportable 03/10/21 04:29 [place] Rings Not Reportable 03/10/21 04:29 Spencer Cells Not Reportable 03/10/21 04:29 Bite Cells Not Reportable 03/10/21 04:29 Crenated Cell Not Reportable 03/10/21 04:29 Elliptocytes Not Reportable 03/10/21 04:29 Acanthocytes (Spur) Not Reportable 03/10/21 04:29 Rouleaux Not Reportable 03/10/21 04:29 Hemoglobin C Crystals Not Reportable 03/10/21 04:29 Schistocytes Not Reportable 03/10/21 04:29 Malaria parasites Not Reportable 03/10/21 04:29 Shaheen Bodies Not Reportable 03/10/21 04:29 Hem Pathologist Commnt No 03/10/21 04:29 PT 16.1 Sec. (12.2-14.9) H 03/08/21 20:24 INR 1.17 (0.87-1.13) H 03/08/21 20:24 APTT 28.0 Sec. (24.2-36.6) 03/08/21 20:24 D-Dimer > 12085 ng/mlDDU (0-234) H 03/08/21 20:24 ABG pH 7.248 pH Units (7.350-7.450) L 03/12/21 10:43 POC ABG pCO2 55.9 mmHg (32.0-48.0) H 03/11/21 02:09 ABG pCO2 74.9 mm Hg 03/12/21 10:43 POC ABG pO2 54.4 mmHg (83-108) L 03/11/21 02:09 ABG pO2 73.7 mm Hg (80.0-90.0) L 03/12/21 10:43 POC ABG HCO3 25.5 03/11/21 02:09 ABG HCO3 32.0 mmol/L (20.0-26.0) H 03/12/21 10:43 ABG O2 Saturation 93.9 % (95.0-99.0) L 03/12/21 10:43 ABG O2 Content 18.6 (0.0-44) 03/12/21 10:43 POC ABG Base Excess -2.4 03/11/21 02:09 ABG Base Excess 2.3 mmol/L (-2.0-3.0) 03/12/21 10:43 ABG Hemoglobin 14.3 gm/dl (14.0-18.0) 03/12/21 10:43 ABG Oxyhemoglobin 83.0 (94-98) L 03/11/21 02:09 ABG Carboxyhemoglobin 1.1 % (0.0-5.0) 03/12/21 10:43 ABG Methemoglobin 0.8 % (0.0-1.5) 03/12/21 10:43 ABG Sodium 139.3 mmol/L (136.0-145.0) 03/11/21 02:09 ABG Potassium 4.8 mmol/L (3.40-4.50) H 03/11/21 02:09 ABG Chloride 102.0 mmol/L (98-107) 03/11/21 02:09 ABG Glucose 180 mg/dL (65-95) H 03/11/21 02:09 Oxyhemoglobin 92.1 % (95.0-99.0) L 03/12/21 10:43 Carboxyhemoglobin 1.0 (0.5-1.5) 03/11/21 02:09 FiO2 60 % 03/12/21 10:43 FiO2 % 90.0 03/11/21 02:09 Sodium 135 mmol/L (137-145) L 03/12/21 08:03 Potassium 5.0 mmol/L (3.6-5.0) 03/12/21 08:03 Chloride 100.5 mmol/L (98-107) 03/12/21 08:03 Carbon Dioxide 26 mmol/L (22-30) 03/12/21 08:03 Anion Gap 14 mmol/L 03/12/21 08:03 BUN 48 mg/dL (9-20) H 03/12/21 08:03 Creatinine 1.3 mg/dL (0.8-1.3) 03/12/21 08:03 Estimated GFR 56 ml/min 03/12/21 08:03 BUN/Creatinine Ratio 37 % 03/12/21 08:03 Glucose 358 mg/dL (75-100) H 03/12/21 08:03 POC Glucose 359 mg/dL (70-105) H 03/12/21 11:31 Lactic Acid 1.90 mmol/L (0.7-2.0) 03/08/21 23:51 Calcium 8.4 mg/dL (8.4-10.2) 03/12/21 08:03 Ferritin 877.5 ng/mL (30.0-300.0) H 03/08/21 20:24 Total Bilirubin 0.20 mg/dL (0.1-1.2) 03/12/21 08:03 AST 10 units/L (5-40) 03/12/21 08:03 ALT 16 units/L (7-56) 03/12/21 08:03 Alkaline Phosphatase 77 units/L (35-129) 03/12/21 08:03 Lactate Dehydrogenase 624 units/L (91-180) H 03/08/21 20:24 C-Reactive Protein 18.00 mg/dL (0.00-1.30) H 03/08/21 20:24 NT-Pro-B Natriuret Pep 1053 pg/mL (0-900) H 03/08/21 20:24 Total Protein 6.0 g/dL (6.3-8.2) L 03/12/21 08:03 Albumin 2.9 g/dL (3.9-5) L 03/12/21 08:03 Albumin/Globulin Ratio 0.9 % 03/12/21 08:03 Procalcitonin 0.14 ng/mL (<0.15) 03/10/21 09:47 Arterial Blood Glucose 180 mg/dL (65-95) H 03/11/21 02:09 Arterial Blood Ionized Calcium 5.0 mg/dL (4.6-5.3) 03/11/21 02:09 Urine Color Yellow (Yellow) 03/09/21 04:10 Urine Turbidity Slightly-cloudy (Clear) 03/09/21 04:10 Urine pH 5.0 (5.0-7.0) 03/09/21 04:10 Ur Specific [place] 1.041 (1.003-1.030) H 03/09/21 04:10 Urine Protein 100 mg/dl mg/dL (Negative) 03/09/21 04:10 Urine Glucose (UA) Neg mg/dL (Negative) 03/09/21 04:10 Urine Ketones Neg mg/dL (Negative) 03/09/21 04:10 Urine Blood Mod (Negative) 03/09/21 04:10 Urine Nitrite Neg (Negative) 03/09/21 04:10 Urine Bilirubin Neg (Negative) 03/09/21 04:10 Urine Urobilinogen 2.0 mg/dL (<2.0) 03/09/21 04:10 Ur Leukocyte Esterase Neg (Negative) 03/09/21 04:10 Urine WBC (Auto) 4.0 /HPF (0.0-6.0) 03/09/21 04:10 Urine RBC (Auto) 1.0 /HPF (0.0-6.0) 03/09/21 04:10 Urine Bacteria (Auto) 1+ /HPF (Negative) 03/09/21 04:10 Urine Mucus Few /HPF 03/09/21 04:10 Coronavirus (PCR) Positive (Negative) A 03/09/21 08:00 Microbiology: Microbiology 03/10/21 15:39 Tracheal Aspirate Sputum Culture - Preliminary 03/08/21 20:41 Peripheral/Venous Blood Culture - Preliminary NO GROWTH AFTER 72 HOURS 03/08/21 20:24 Peripheral/Venous Blood Culture - Preliminary NO GROWTH AFTER 72 HOURS Good/IV: Voiding Method Indwelling Catheter Active Medications - Current Medications Current Medications: Generic Name Dose Route Start Last Admin Trade Name Freq PRN Reason Stop Dose Admin Acetaminophen 650 mg 03/09/21 01:26 Acetaminophen 325 Mg Tab PO Q4H PRN Pain MILD(1-3)/Fever >100.5/RAYO Albuterol 2.5 mg 03/09/21 01:26 Albuterol 2.5 Mg/3 Ml Nebu IH Q4HRT PRN Shortness Of Breath Albuterol/Ipratropium 1 ampul 03/11/21 08:00 03/12/21 07:22 Ipratropium/Albuterol Sulfate 3 Ml Ampul.Neb IH 1 ampul TIDRT BLANCA Administration Arformoterol Tartrate 15 mcg 03/11/21 20:00 03/12/21 07:22 Arformoterol 15 Mcg/2 Ml Nebu IH 15 mcg Q12HRT BLANCA Administration Ascorbic Acid 500 mg 03/10/21 14:00 03/12/21 09:51 Ascorbic Acid 500 Mg Tab PO 500 mg BID BLANCA Administration Budesonide 0.25 mg 03/11/21 20:00 03/12/21 07:22 Budesonide 0.25 Mg/2 Ml Nebu IH Not Given Q12HRT BLANCA Dextrose 0 ml 03/09/21 01:26 Dextrose 50% In Water (25gm) 50 Ml Syringe IV Q30MIN PRN Hypoglycemia Protocol Enoxaparin Sodium 100 mg 03/09/21 10:00 03/12/21 09:48 Enoxaparin 100 Mg/1 Ml Inj SUB-Q 100 mg Q12HR [facility] Administration Protocol Famotidine 20 mg 03/12/21 22:00 Famotidine 20 Mg Tab FEEDTUBE BID BLANCA Fentanyl 50 mcg 03/10/21 16:47 Fentanyl 100 Mcg/2 Ml Inj IV Q10MIN PRN ANALGESIA Hydralazine HCl 10 mg 03/09/21 01:36 03/10/21 03:56 Hydralazine 20 Mg/1 Ml Inj IV 10 mg Q6H PRN Administration Blood Pressure Hydralazine HCl 50 mg 03/11/21 17:00 03/12/21 05:39 Hydralazine 25 Mg Tab PO 50 mg Q8HR [facility] Administration Hydromorphone HCl 0.5 mg 03/09/21 01:26 Hydromorphone 1 Mg/1 Ml Inj IV Q3H PRN Pain , Severe (7-10) Hydrophilic Ointment 1 applic 03/10/21 15:39 Lip Therapy Vaseline TP Q2HR PRN Dry Lips REMDESIVIR 100 mg/ Sodium 250 mls @ 500 mls/hr 03/10/21 21:00 03/11/21 21:25 Chloride IV 03/13/21 21:29 500 mls/hr Q24HR@2100 BLANCA Administration Fentanyl Citrate 2,000 mcg in 100 mls @ 5.897 mls/hr 03/10/21 17:00 03/12/21 04:25 Fentanyl Drip Premix IV 3 mcg/kg/hr TITR BLANCA 17.69 mls/hr Administration Protocol 1 MCG/KG/HR Propofol 1,000 mg in 100 mls @ 3.507 mls/hr 03/11/21 17:00 03/12/21 09:55 Diprivan 10 Mg/Ml IV 35 mcg/kg/min TITR BLANCA 24.549 mls/hr Administration Protocol 5 MCG/KG/MIN Insulin Glargine 15 units 03/13/21 08:00 Insulin Glargine 100 Units/Ml SUB-Q QAMDIAB [facility] Insulin Human Lispro 0 unit 03/11/21 18:00 03/12/21 13:08 Insulin Lispro 100 Unit/Ml SUB-Q 10 unit Q6HR [facility] Administration Protocol Labetalol HCl 10 mg 03/10/21 17:19 03/12/21 05:44 Labetalol 20 Mg/4 Ml Inj IV 10 mg Q6H BLANCA Administration Methylprednisolone Sodium Succinate 60 mg 03/10/21 22:00 03/12/21 05:40 Methylprednisolone Sod Succinate 125 Mg/2 Ml Inj IV 60 mg Q8HR BLANCA Administration Morphine Sulfate 2 mg 03/09/21 01:26 Morphine 2 Mg/1 Ml Inj IV Q4H PRN Pain, Moderate (4-6) Multi-Ingred Cream/Lotion/Oil/Oint 1 applic 03/10/21 15:39 Mineral Oil/Petrolatum, White Ophth Oint 3.5 Gm OU Q4HR PRN Dry Eye(s) Ondansetron HCl 4 mg 03/09/21 01:26 Ondansetron 4 Mg/2 Ml Inj IV Q8H PRN Nausea And Vomiting Senna/Docusate Sodium 1 tab 03/10/21 22:00 03/12/21 09:51 Sennosides/Docusate Sodium 8.6/50 Mg Tab FEEDTUBE 1 tab BID BLANCA Administration Sodium Chloride 10 ml 03/09/21 10:00 03/12/21 09:51 Sodium Chloride 0.9% 10 Ml Flush Syringe IV 10 ml BID BLANCA Administration Sodium Chloride 10 ml 03/09/21 01:26 Sodium Chloride 0.9% 10 Ml Flush Syringe IV PRN PRN LINE FLUSH Sodium Chloride 50 ml 03/09/21 21:00 03/11/21 21:28 Sodium Chloride 0.9% 50 Ml Ivpb IV 03/13/21 21:01 50 ml Q24HR@2100 BLANCA Administration Zinc Sulfate 220 mg 03/10/21 14:00 03/12/21 09:49 Zinc Sulfate 220 Mg Cap PO 220 mg BID BLANCA Administration Nutrition/Malnutrition Assess - Dietary Evaluation Nutrition/Malnutrition Findings: Nutrition Notes Start: 03/09/21 08:49 Freq: Status: Active Protocol: Document 03/11/21 09:59 BRIAN (Rec: 03/11/21 10:01 BRIAN [id number]) Nutrition Notes 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 Pt currently being followed by RD. Nutrition Intervention Follow-Up By: 03/13/21 Additional Comments F/U: new TF, vent status <RAFAEL DOMINGUEZ - Last Filed: 03/15/21 21:27> Assessment and Plan Assessment and plan: I saw and evaluated the patient. Discussed with the nurse practitioner and agree with their findings and plan as documented in this note. Hospitalist Physical - Constitutional Vitals: Temp Pulse Resp BP Pulse Ox 99.6 F 111 H 19 128/75 93 03/15/21 20:00 03/15/21 21:00 03/15/21 21:00 03/15/21 21:00 03/15/21 21:00 Results - Labs CBC & Chem 7: 03/15/21 15:06 03/15/21 15:07 Labs: Laboratory Last Values WBC 11.6 K/mm3 (4.5-11.0) H 03/14/21 05:50 RBC 4.53 M/mm3 (3.65-5.03) 03/14/21 05:50 Hgb 14.3 gm/dl (11.8-15.2) 03/15/21 15:06 Hct 44.6 % (35.5-45.6) 03/15/21 15:06 MCV 92 fl (84-94) 03/14/21 05:50 MCH 30 pg (28-32) 03/14/21 05:50 MCHC 32 % (32-34) 03/14/21 05:50 RDW 14.5 % (13.2-15.2) 03/14/21 05:50 Plt Count 332 K/mm3 (140-440) 03/14/21 05:50 Add Manual Diff Complete 03/10/21 04:29 Total Counted 100 03/10/21 04:29 Seg Neuts % (Manual) 94.0 % (40.0-70.0) H 03/10/21 04:29 Band Neutrophils % 0 % 03/10/21 04:29 Lymphocytes % (Manual) 1.0 % (13.4-35.0) L 03/10/21 04:29 Reactive Lymphs % (Man) 0 % 03/10/21 04:29 Monocytes % (Manual) 5.0 % (0.0-7.3) 03/10/21 04:29 Eosinophils % (Manual) 0 % (0.0-4.3) 03/10/21 04:29 Basophils % (Manual) 0 % (0.0-1.8) 03/10/21 04:29 Metamyelocytes % 0 % 03/10/21 04: Myelocytes % 0 % 03/10/21 04: Promyelocytes % 0 % 03/10/21 04:29 Blast Cells % 0 % 03/10/21 04:29 Nucleated RBC % 3.0 % (0.0-0.9) H 03/10/21 04:29 Seg Neutrophils # Man 19.4 K/mm3 (1.8-7.7) H 03/10/21 04:29 Band Neutrophils # 0.0 K/mm3 03/10/21 04:29 Lymphocytes # (Manual) 0.2 K/mm3 (1.2-5.4) L 03/10/21 04:29 Abs React Lymphs (Man) 0.0 K/mm3 03/10/21 04:29 Monocytes # (Manual) 1.0 K/mm3 (0.0-0.8) H 03/10/21 04:29 Eosinophils # (Manual) 0.0 K/mm3 (0.0-0.4) 03/10/21 04:29 Basophils # (Manual) 0.0 K/mm3 (0.0-0.1) 03/10/21 04:29 Metamyelocytes # 0.0 K/mm3 03/10/21 04:29 Myelocytes # 0.0 K/mm3 03/10/21 04:29 Promyelocytes # 0.0 K/mm3 03/10/21 04:29 Blast Cells # 0.0 K/mm3 03/10/21 04:29 WBC Morphology Not Reportable 03/10/21 04:29 Hypersegmented Neuts Not Reportable 03/10/21 04:29 Hyposegmented Neuts Not Reportable 03/10/21 04:29 Hypogranular Neuts Not Reportable 03/10/21 04:29 Smudge Cells Not Reportable 03/10/21 04:29 Toxic Granulation Not Reportable 03/10/21 04:29 Toxic Vacuolation Not Reportable 03/10/21 04:29 Dohle Bodies Not Reportable 03/10/21 04:29 Pelger-Huet Anomaly Not Reportable 03/10/21 04:29 Mely Rods Not Reportable 03/10/21 04:29 Platelet Estimate Consistent w auto 03/10/21 04:29 Clumped Platelets Not Reportable 03/10/21 04:29 Plt Clumps, EDTA Not Reportable 03/10/21 04:29 Large Platelets Not Reportable 03/10/21 04:29 Giant Platelets Not Reportable 03/10/21 04:29 Platelet Satelliting Not Reportable 03/10/21 04:29 Plt Morphology Comment Not Reportable 03/10/21 04:29 RBC Morphology Normal 03/10/21 04:29 Dimorphic RBCs Not Reportable 03/10/21 04:29 Polychromasia Not Reportable 03/10/21 04:29 Hypochromasia Not Reportable 03/10/21 04:29 Poikilocytosis Not Reportable 03/10/21 04:29 Anisocytosis Not Reportable 03/10/21 04:29 Microcytosis Not Reportable 03/10/21 04:29 Macrocytosis Not Reportable 03/10/21 04:29 Spherocytes Not Reportable 03/10/21 04:29 Pappenheimer Bodies Not Reportable 03/10/21 04:29 Sickle Cells Not Reportable 03/10/21 04:29 Target Cells Not Reportable 03/10/21 04:29 Tear Drop Cells Not Reportable 03/10/21 04:29 Ovalocytes Not Reportable 03/10/21 04:29 Helmet Cells Not Reportable 03/10/21 04:29 [place] Bodies Not Reportable 03/10/21 04:29 [place] Rings Not Reportable 03/10/21 04:29 Spencer Cells Not Reportable 03/10/21 04:29 Bite Cells Not Reportable 03/10/21 04:29 Crenated Cell Not Reportable 03/10/21 04:29 Elliptocytes Not Reportable 03/10/21 04:29 Acanthocytes (Spur) Not Reportable 03/10/21 04:29 Rouleaux Not Reportable 03/10/21 04:29 Hemoglobin C Crystals Not Reportable 03/10/21 04:29 Schistocytes Not Reportable 03/10/21 04:29 Malaria parasites Not Reportable 03/10/21 04:29 Shaheen Bodies Not Reportable 03/10/21 04:29 Hem Pathologist Commnt No 03/10/21 04:29 PT 16.1 Sec. (12.2-14.9) H 03/08/21 20:24 INR 1.17 (0.87-1.13) H 03/08/21 20:24 APTT 28.0 Sec. (24.2-36.6) 03/08/21 20:24 D-Dimer 1781.79 ng/mlDDU (0-234) H 03/15/21 06:06 ABG pH 7.410 pH Units (7.350-7.450) 03/15/21 14:05 POC ABG pCO2 71.9 mmHg (32.0-48.0) H 03/12/21 21:54 ABG pCO2 59.1 mm Hg 03/15/21 14:05 POC ABG pO2 53.6 mmHg (83-108) L 03/12/21 21:54 ABG pO2 52.1 mm Hg (80.0-90.0) L 03/15/21 14:05 POC ABG HCO3 30.0 03/12/21 21:54 ABG HCO3 36.6 mmol/L (20.0-26.0) H 03/15/21 14:05 ABG O2 Saturation 87.6 % (95.0-99.0) L 03/15/21 14:05 ABG O2 Content 18.3 (0.0-44) 03/15/21 14:05 POC ABG Base Excess 0.5 03/12/21 21:54 ABG Base Excess 9.5 mmol/L (-2.0-3.0) H 03/15/21 14:05 ABG Hemoglobin 15.2 gm/dl (14.0-18.0) 03/15/21 14:05 ABG Oxyhemoglobin 84.8 (94-98) L 03/12/21 21:54 ABG Carboxyhemoglobin 1.4 % (0.0-5.0) 03/15/21 14:05 ABG Methemoglobin 0.8 % (0.0-1.5) 03/15/21 14:05 ABG Sodium 134.2 mmol/L (136.0-145.0) L 03/12/21 21:54 ABG Potassium 4.9 mmol/L (3.40-4.50) H 03/12/21 21:54 ABG Chloride 99.0 mmol/L (98-107) 03/12/21 21:54 ABG Glucose 306 mg/dL (65-95) H 03/12/21 21:54 Oxyhemoglobin 85.7 % (95.0-99.0) L 03/15/21 14:05 Carboxyhemoglobin 0.6 (0.5-1.5) 03/12/21 21:54 FiO2 40 % 03/15/21 14:05 FiO2 % 50.0 03/12/21 21:54 Sodium 148 mmol/L (137-145) H 03/15/21 06:06 Potassium 4.9 mmol/L (3.6-5.0) 03/15/21 15:07 Chloride 108.0 mmol/L (98-107) H 03/15/21 06:06 Carbon Dioxide 31 mmol/L (22-30) H 03/15/21 06:06 Anion Gap 15 mmol/L 03/15/21 06:06 BUN 46 mg/dL (9-20) H 03/15/21 06:06 Creatinine 1.0 mg/dL (0.8-1.3) 03/15/21 06:06 Estimated GFR > 60 ml/min 03/15/21 06:06 BUN/Creatinine Ratio 46 % 03/15/21 06:06 Glucose 139 mg/dL (75-100) H 03/15/21 06:06 POC Glucose 263 mg/dL (70-105) H 03/15/21 17:09 Lactic Acid 1.90 mmol/L (0.7-2.0) 03/08/21 23:51 Calcium 8.9 mg/dL (8.4-10.2) 03/15/21 06:06 Phosphorus 4.80 mg/dL (2.5-4.5) H D 03/15/21 06:06 Magnesium 3.00 mg/dL (1.7-2.3) H 03/15/21 06:06 Ferritin 976.4 ng/mL (30.0-300.0) H 03/15/21 04:00 Total Bilirubin 0.20 mg/dL (0.1-1.2) 03/12/21 08:03 AST 10 units/L (5-40) 03/12/21 08:03 ALT 16 units/L (7-56) 03/12/21 08:03 Alkaline Phosphatase 77 units/L (35-129) 03/12/21 08:03 Lactate Dehydrogenase 630 units/L (91-180) H 03/15/21 06:06 C-Reactive Protein 0.80 mg/dL (0.00-1.30) 03/15/21 06:06 NT-Pro-B Natriuret Pep 1053 pg/mL (0-900) H 03/08/21 20:24 Total Protein 6.0 g/dL (6.3-8.2) L 03/12/21 08:03 Albumin 2.9 g/dL (3.9-5) L 03/12/21 08:03 Albumin/Globulin Ratio 0.9 % 03/12/21 08:03 Procalcitonin 0.14 ng/mL (<0.15) 03/10/21 09:47 Arterial Blood Glucose 306 mg/dL (65-95) H 03/12/21 21:54 Arterial Blood Ionized Calcium 5.0 mg/dL (4.6-5.3) 03/12/21 21:54 Urine Color Yellow (Yellow) 03/09/21 04:10 Urine Turbidity Slightly-cloudy (Clear) 03/09/21 04:10 Urine pH 5.0 (5.0-7.0) 03/09/21 04:10 Ur Specific [place] 1.041 (1.003-1.030) H 03/09/21 04:10 Urine Protein 100 mg/dl mg/dL (Negative) 03/09/21 04:10 Urine Glucose (UA) Neg mg/dL (Negative) 03/09/21 04:10 Urine Ketones Neg mg/dL (Negative) 03/09/21 04:10 Urine Blood Mod (Negative) 03/09/21 04:10 Urine Nitrite Neg (Negative) 03/09/21 04:10 Urine Bilirubin Neg (Negative) 03/09/21 04:10 Urine Urobilinogen 2.0 mg/dL (<2.0) 03/09/21 04:10 Ur Leukocyte Esterase Neg (Negative) 03/09/21 04:10 Urine WBC (Auto) 4.0 /HPF (0.0-6.0) 03/09/21 04:10 Urine RBC (Auto) 1.0 /HPF (0.0-6.0) 03/09/21 04:10 Urine Bacteria (Auto) 1+ /HPF (Negative) 03/09/21 04:10 Urine Mucus Few /HPF 03/09/21 04:10 Coronavirus (PCR) Positive (Negative) A 03/09/21 08:00 Good/IV: Voiding Method Indwelling Catheter Active Medications - Current Medications Current Medications: Generic Name Dose Route Start Last Admin Trade Name Freq PRN Reason Stop Dose Admin Acetaminophen 650 mg 03/09/21 01:26 03/14/21 17:24 Acetaminophen 325 Mg Tab PO 650 mg Q4H PRN Administration Pain MILD(1-3)/Fever >100.5/RAYO Albuterol 2.5 mg 03/09/21 01:26 Albuterol 2.5 Mg/3 Ml Nebu IH Q4HRT PRN Shortness Of Breath Albuterol/Ipratropium 1 ampul 03/11/21 08:00 03/15/21 19:49 Ipratropium/Albuterol Sulfate 3 Ml Ampul.Neb IH 1 ampul TIDRT BLANCA Administration Arformoterol Tartrate 15 mcg 03/11/21 20:00 03/15/21 19:49 Arformoterol 15 Mcg/2 Ml Nebu IH 15 mcg Q12HRT BLANCA Administration Ascorbic Acid 500 mg 03/10/21 14:00 03/15/21 09:02 Ascorbic Acid 500 Mg Tab PO 500 mg BID BLANCA Administration Budesonide 0.25 mg 03/11/21 20:00 03/15/21 19:49 Budesonide 0.25 Mg/2 Ml Nebu IH 0.25 mg Q12HRT BLANCA Administration Dextrose 0 ml 03/09/21 01:26 Dextrose 50% In Water (25gm) 50 Ml Syringe IV Q30MIN PRN Hypoglycemia Protocol Enoxaparin Sodium 100 mg 03/09/21 10:00 03/15/21 09:02 Enoxaparin 100 Mg/1 Ml Inj SUB-Q 100 mg Q12HR BLANCA Administration Protocol Famotidine 20 mg 03/12/21 22:00 03/15/21 09:02 Famotidine 20 Mg Tab FEEDTUBE 20 mg BID BLANCA Administration Fentanyl 50 mcg 03/10/21 16:47 Fentanyl 100 Mcg/2 Ml Inj IV Q10MIN PRN ANALGESIA Hydralazine HCl 10 mg 03/09/21 01:36 03/10/21 03:56 Hydralazine 20 Mg/1 Ml Inj IV 10 mg Q6H PRN Administration Blood Pressure Hydralazine HCl 50 mg 03/11/21 17:00 03/15/21 14:00 Hydralazine 25 Mg Tab PO Not Given Q8HR [facility] Hydrophilic Ointment 1 applic 03/10/21 15:39 Lip Therapy Vaseline TP Q2HR PRN Dry Lips Fentanyl Citrate 2,000 mcg in 100 mls @ 5.897 mls/hr 03/10/21 17:00 03/15/21 18:15 Fentanyl Drip Premix IV 4 mcg/kg/hr TITR BLANCA 23.587 mls/hr Administration Protocol 1 MCG/KG/HR Propofol 1,000 mg in 100 mls @ 3.507 mls/hr 03/11/21 17:00 03/15/21 14:50 Diprivan 10 Mg/Ml IV 35 mcg/kg/min TITR BLANCA 24.549 mls/hr Administration Protocol 5 MCG/KG/MIN Insulin Glargine 25 units 03/14/21 10:00 03/15/21 09:03 Insulin Glargine 100 Units/Ml SUB-Q 25 units BID BLANCA Administration Insulin Human Lispro 0 unit 03/11/21 18:00 03/15/21 18:14 Insulin Lispro 100 Unit/Ml SUB-Q 6 unit Q6HR [facility] Administration Protocol Insulin Human Regular 5 units 03/14/21 12:00 03/15/21 18:14 Insulin Regular, Human 100 Units/1 Ml SUB-Q 5 units Q6HR [facility] Administration Labetalol HCl 10 mg 03/12/21 21:13 Labetalol 20 Mg/4 Ml Inj IV Q6H PRN Blood Pressure Methylprednisolone Sodium Succinate 60 mg 03/10/21 22:00 03/15/21 13:03 Methylprednisolone Sod Succinate 125 Mg/2 Ml Inj IV 60 mg Q8HR BLANCA Administration Midazolam HCl 2 mg 03/15/21 08:49 03/15/21 17:56 Midazolam 2 Mg/2 Ml Inj IV 2 mg Q2H PRN Administration VENT SYNCHRONY Multi-Ingred Cream/Lotion/Oil/Oint 1 applic 03/10/21 15:39 Mineral Oil/Petrolatum, White Ophth Oint 3.5 Gm OU Q4HR PRN Dry Eye(s) Ondansetron HCl 4 mg 03/09/21 01:26 Ondansetron 4 Mg/2 Ml Inj IV Q8H PRN Nausea And Vomiting Senna/Docusate Sodium 1 tab 03/10/21 22:00 03/15/21 13:04 Sennosides/Docusate Sodium 8.6/50 Mg Tab FEEDTUBE Not Given BID BLANCA Sodium Chloride 10 ml 03/09/21 10:00 03/15/21 10:04 Sodium Chloride 0.9% 10 Ml Flush Syringe IV 10 ml BID BLANCA Administration Sodium Chloride 10 ml 03/09/21 01:26 Sodium Chloride 0.9% 10 Ml Flush Syringe IV PRN PRN LINE FLUSH Zinc Sulfate 220 mg 03/10/21 14:00 03/15/21 09:02 Zinc Sulfate 220 Mg Cap PO 220 mg BID BLANCA Administration Nutrition/Malnutrition Assess - Dietary Evaluation Nutrition/Malnutrition Findings: Nutrition Notes Start: 03/09/21 08:49 Freq: Status: Active Protocol: Document 03/14/21 10:48 BRYANNA (Rec: 03/14/21 11:07 BRYANNA [id number]) Nutrition Notes Initial or Follow up Brief Note Current Diet TF-Glucerna 1.2 Tyson @ 66 ml/hr (since L 03/14). Height 5 ft 11 in Weight 117 kg Lipan Body Weight (kg) 78.18 BMI 35.9 Weight change and time frame No body weight change reported . Weight Status Obese Subjective/Other Information RD consult for TF change requested by RN. RN states that Pt's bG has been high and request a change to Glucerna, since no kidney complications are present. Percent of energy/protein needs met: Prescribed Glucerna 1.2 Tyson @ 66 ml/hr provides for energy/ protein needs (1911 Kcal/96 g) during LOS, 100% Kcal; 75% AA . #1 Nutrition Diagnosis Inadequate oral intake Comments: RN states that Pt's bG has been high and request a change to Glucerna, since no kidney complications are present. Diagnosis Progress(for reassessment Continues documentation) Is patient on ventilator? Yes Is Patient Ambulatory and/or Out of Bed No REE-(Frankewing-St. Jeor-confined to bed) [phone] Calculation Used for Recommendations 70-80% energy needs Additional Notes Energy needs: 8982-4207 kcal/ day Pro needs 1.3g/kg adjBW: 127g/ day Fluid needs 1ml/kcal Nutrition Intervention Nutrition Support: Change to Glucerna 1.2 Tyson @66 ml/hr. Flush: 100 ml water Q 4 hr, or as per MD. Kcal 1,911 Protein (gm) 96 Carbohydrates (gm) 182 Fat (gm) 96 Fluid (mL) 1,282 Fiber (gm) 26 % RDI: 100% Kcal; 75% AA. Goal #1 Provide at least 75% of energy /protein needs through Enteral Feeding during LOS. Follow-Up By: 03/17/21 Additional Comments Continue monitoring TF tolerance and BM.
--- NOTE | 2021-03-12 17:06 | Progress Note ---
Assessment and Plan Acute hypoxemic respiratory failure, on continuous noninvasive ventilation COVID-19 infection Bilateral pneumonia History of diabetes Obesity Hypertension Leukocytosis Possible venous thromboembolic phenomena with significantly elevated D-dimers DM II Elevated serum inflammatory markers to include CRP levels, ferritin and LDH - repeat ABG at 10 pm - permissive hypercapnia as tolerated - keep peep at 10 for now - FiO2 increased to 60% - Lantus increased form 8 to 15 units re: hyperglycemia - change labetalol to prn dosing - VAP bundle addressed - continue care as below otherwise; - follow 2D ECHO - follow lower extremity dopplers - continue NIV; transition to qhs scheduled & prn daytime use - continue to wean supplemental oxygen for target O2 sat's > 90% acutely - aspiration precautions - continue bronchodilators with pulmonary hygiene per RT - continue accuchecks with glycemic control per SSI (While critically ill target blood glucose of 140-180 mg/dL; avoid hypoglycemia) - avoid nephrotoxins, renally dose all medications - avoid benzodiazepine's, reduce the possibility of delirium - complete AB's per ID rec's - sedation target for RASS 0 to -1 acutely - prn analgesia per pain score - Maintenance of sleep-wake cycle, avoid delirium - G.I. & VTE prophylaxis - PT/OT/ROM exercises - mobility protocols for pressure ulcer prophylaxis - Monitor hemodynamics closely - continue other care per attending / other consultants - discharge planning ongoing concurrently COVID SPECIFIC INTERVENTIONS - Remdesivir as per ID/Pulmonary developed protocols (receiving) - continue systemic steroids for severe COVID-19 infection empirically (Decadron) - follow repeat COVID tests results - zinc and vitamin C supplementation - Monitor inflammatory markers per facility protocol - ferritin, Ddimer, CRP - therapeutic anticoagulation per system Protocol based on d-dimer and clinical considerations (treatment dose) - Continue contact and airborne isolation .... Re-evaluate in am & prn CONDITION: CRITICAL PROGNOSIS: GUARDED CODE STATUS: FULL CODE The high probability of a clinically significant, sudden or life-threatening deterioration of the [respiratory, cardiovascular & hematologic] system(s) r equired my full and direct attention, intervention and personal management. The aggregate critical care time was [32] minutes without overlap. Time includes spent on; [x] Data Review and interpretation [x] Patient assessment and monitoring of vital signs [x] Documentation [x] Medication orders and management Subjective Date of service: 03/12/21 Principal diagnosis: AHRF; COVID-19 infection; DM II; Bilateral pneumonia; Obesity; HTN Interval history: Patient is seen today for: Acute hypoxemic respiratory failure; COVID-19 infection; DM II; Bilateral pneumonia; Obesity; HTN Seen and examined at bedside; 24hour events reviewed; nursing and respiratory care staff consulted; no adverse overnight events reported to me; resting in b ed; well sedated; hypercapnia is worse with pH down to 7.25; no emesis or overt aspiration; afebrile Objective Vital Signs - 12hr 03/12/21 03/12/21 03/12/21 05:31 05:39 05:44 Pulse Rate 97 H 97 H 97 H Pulse Rate [ Bilateral Throughout] Pulse Rate [ From Monitor] Respiratory 25 H Rate Respiratory Rate [Bilateral Throughout] Blood Pressure 134/66 134/66 134/66 O2 Sat by Pulse 100 Oximetry 03/12/21 03/12/21 03/12/21 06:01 06:30 07:00 Pulse Rate 97 H 89 90 Pulse Rate [ Bilateral Throughout] Pulse Rate [ From Monitor] Respiratory 25 H 25 H 21 Rate Respiratory Rate [Bilateral Throughout] Blood Pressure 119/62 123/56 126/60 O2 Sat by Pulse 98 100 100 Oximetry 03/12/21 03/12/21 03/12/21 07:22 07:30 08:00 Pulse Rate 91 H 90 88 Pulse Rate [ 90 Bilateral Throughout] Pulse Rate [ 91 H From Monitor] Respiratory 24 25 H Rate Respiratory 25 H Rate [Bilateral Throughout] Blood Pressure 129/61 129/61 129/60 O2 Sat by Pulse 100 100 100 Oximetry 03/12/21 03/12/21 03/12/21 08:30 09:00 09:30 Pulse Rate 89 91 H 93 H Pulse Rate [ Bilateral Throughout] Pulse Rate [ From Monitor] Respiratory 25 H 25 H 23 Rate Respiratory Rate [Bilateral Throughout] Blood Pressure 132/60 142/61 133/63 O2 Sat by Pulse 100 100 100 Oximetry 03/12/21 03/12/21 03/12/21 10:01 10:30 11:00 Pulse Rate 93 H 92 H 91 H Pulse Rate [ Bilateral Throughout] Pulse Rate [ From Monitor] Respiratory 25 H 25 H 25 H Rate Respiratory Rate [Bilateral Throughout] Blood Pressure 128/62 131/58 131/58 O2 Sat by Pulse 100 100 100 Oximetry 03/12/21 03/12/21 03/12/21 11:30 11:33 12:00 Pulse Rate 90 91 H 90 Pulse Rate [ Bilateral Throughout] Pulse Rate [ 91 H From Monitor] Respiratory 25 H 25 H Rate Respiratory Rate [Bilateral Throughout] Blood Pressure 121/59 121/59 126/56 O2 Sat by Pulse 100 100 100 Oximetry 03/12/21 03/12/21 03/12/21 12:30 13:00 13:30 Pulse Rate 88 86 87 Pulse Rate [ Bilateral Throughout] Pulse Rate [ From Monitor] Respiratory 25 H 25 H 25 H Rate Respiratory Rate [Bilateral Throughout] Blood Pressure 123/58 118/59 114/48 O2 Sat by Pulse 100 100 100 Oximetry 03/12/21 03/12/21 03/12/21 13:45 14:00 14:22 Pulse Rate 85 84 Pulse Rate [ 87 Bilateral Throughout] Pulse Rate [ From Monitor] Respiratory 25 H Rate Respiratory 25 H Rate [Bilateral Throughout] Blood Pressure 108/49 108/49 O2 Sat by Pulse 100 Oximetry 03/12/21 03/12/21 03/12/21 14:23 14:30 15:00 Pulse Rate 84 85 85 Pulse Rate [ Bilateral Throughout] Pulse Rate [ From Monitor] Respiratory 25 H 25 H Rate Respiratory Rate [Bilateral Throughout] Blood Pressure 106/82 117/52 113/50 O2 Sat by Pulse 100 100 Oximetry 03/12/21 03/12/21 03/12/21 15:19 15:30 16:00 Pulse Rate 83 85 85 Pulse Rate [ Bilateral Throughout] Pulse Rate [ 91 H From Monitor] Respiratory 25 H 25 H Rate Respiratory Rate [Bilateral Throughout] Blood Pressure 113/50 110/49 113/48 O2 Sat by Pulse 98 100 100 Oximetry Constitutional: no acute distress, other (elderly obese male without ventilator dyssynchrony at [facility]) Eyes: non-icteric ENT: oropharynx moist, other (ETT 24 cm CHAITANYA) Neck: supple, no lymphadenopathy, no JVD, other (large circumference) Effort: mildly labored Ascultation: Bilateral: rhonchi Percussion: Bilateral: not dull Cardiovascular: regular rate and rhythm Gastrointestinal: normoactive bowel sounds, soft, non-tender, non-distended (protuberant) Integumentary: rash Extremities: no cyanosis, no edema, pulses normal, no ischemia or petechiae Neurologic: non-focal exam (grossly), pupils equal and round, unable to assess, other (sedated) Psychiatric: other (unable to assess re: AMS) CBC and BMP: 03/12/21 08:03 03/12/21 08:03 ABG, PT/INR, D-dimer: ABG ABG pH 7.248 pH Units (7.350-7.450) L 03/12/21 10:43 POC ABG pCO2 55.9 mmHg (32.0-48.0) H 03/11/21 02:09 ABG pCO2 74.9 mm Hg 03/12/21 10:43 POC ABG pO2 54.4 mmHg (83-108) L 03/11/21 02:09 ABG pO2 73.7 mm Hg (80.0-90.0) L 03/12/21 10:43 POC ABG HCO3 25.5 03/11/21 02:09 ABG O2 Saturation 93.9 % (95.0-99.0) L 03/12/21 10:43 PT/INR, D-dimer PT 16.1 Sec. (12.2-14.9) H 03/08/21 20:24 INR 1.17 (0.87-1.13) H 03/08/21 20:24 D-Dimer > 26149 ng/mlDDU (0-234) H 03/08/21 20:24 Abnormal lab findings: Abnormal Labs 03/08/21 03/08/21 03/08/21 20:24 20:24 20:24 WBC 22.6 H RBC 5.44 H Hgb 15.7 H Hct 49.2 H Seg Neuts % (Manual) 83.0 H Lymphocytes % (Manual) 9.0 L Monocytes % (Manual) 8.0 H Nucleated RBC % Seg Neutrophils # Man 18.8 H Lymphocytes # (Manual) Monocytes # (Manual) 1.8 H PT 16.1 H INR 1.17 H D-Dimer > 24033 H ABG pH POC ABG pCO2 POC ABG pO2 ABG pO2 ABG HCO3 ABG O2 Saturation ABG Oxyhemoglobin ABG Potassium ABG Glucose Oxyhemoglobin Sodium 136 L Chloride 93.9 L BUN 29 H Glucose 208 H POC Glucose Lactic Acid Ferritin Lactate Dehydrogenase 624 H C-Reactive Protein 18.00 H NT-Pro-B Natriuret Pep 1053 H Total Protein Albumin Arterial Blood Glucose Ur Specific [place] Coronavirus (PCR) 01/12/22 01/12/22 01/13/22 20:24 20:24 04:10 WBC RBC Hgb Hct Seg Neuts % (Manual) Lymphocytes % (Manual) Monocytes % (Manual) Nucleated RBC % Seg Neutrophils # Man Lymphocytes # (Manual) Monocytes # (Manual) PT INR D-Dimer ABG pH POC ABG pCO2 POC ABG pO2 ABG pO2 ABG HCO3 ABG O2 Saturation ABG Oxyhemoglobin ABG Potassium ABG Glucose Oxyhemoglobin Sodium Chloride BUN Glucose POC Glucose Lactic Acid 2.10 H* Ferritin 877.5 H Lactate Dehydrogenase C-Reactive Protein NT-Pro-B Natriuret Pep Total Protein Albumin Arterial Blood Glucose Ur Specific [place] 1.041 H Coronavirus (PCR) 03/09/21 03/09/21 03/09/21 07:46 08:00 13:01 WBC RBC Hgb Hct Seg Neuts % (Manual) Lymphocytes % (Manual) Monocytes % (Manual) Nucleated RBC % Seg Neutrophils # Man Lymphocytes # (Manual) Monocytes # (Manual) PT INR D-Dimer ABG pH POC ABG pCO2 POC ABG pO2 ABG pO2 ABG HCO3 ABG O2 Saturation ABG Oxyhemoglobin ABG Potassium ABG Glucose Oxyhemoglobin Sodium Chloride BUN Glucose POC Glucose 191 H 182 H Lactic Acid Ferritin Lactate Dehydrogenase C-Reactive Protein NT-Pro-B Natriuret Pep Total Protein Albumin Arterial Blood Glucose Ur Specific [place] Coronavirus (PCR) Positive A 03/09/21 03/09/21 03/09/21 15:19 17:48 18:10 WBC RBC Hgb Hct Seg Neuts % (Manual) Lymphocytes % (Manual) Monocytes % (Manual) Nucleated RBC % Seg Neutrophils # Man Lymphocytes # (Manual) Monocytes # (Manual) PT INR D-Dimer ABG pH POC ABG pCO2 POC ABG pO2 ABG pO2 47.3 L ABG HCO3 26.3 H ABG O2 Saturation 83.7 L ABG Oxyhemoglobin ABG Potassium ABG Glucose Oxyhemoglobin 82.1 L Sodium Chloride BUN 29 H Glucose 214 H POC Glucose 194 H Lactic Acid Ferritin Lactate Dehydrogenase C-Reactive Protein NT-Pro-B Natriuret Pep Total Protein Albumin 3.4 L Arterial Blood Glucose Ur Specific [place] Coronavirus (PCR) 03/10/21 03/10/21 03/10/21 04:29 04:29 05:22 WBC 20.6 H RBC 5.07 H Hgb Hct 46.2 H Seg Neuts % (Manual) 94.0 H Lymphocytes % (Manual) 1.0 L Monocytes % (Manual) Nucleated RBC % 3.0 H Seg Neutrophils # Man 19.4 H Lymphocytes # (Manual) 0.2 L Monocytes # (Manual) 1.0 H PT INR D-Dimer ABG pH 7.488 H POC ABG pCO2 POC ABG pO2 ABG pO2 47.7 L ABG HCO3 ABG O2 Saturation 86.2 L ABG Oxyhemoglobin ABG Potassium ABG Glucose Oxyhemoglobin 84.6 L Sodium Chloride BUN 29 H Glucose 188 H POC Glucose Lactic Acid Ferritin Lactate Dehydrogenase C-Reactive Protein NT-Pro-B Natriuret Pep Total Protein Albumin 3.3 L Arterial Blood Glucose Ur Specific [place] Coronavirus (PCR) 03/10/21 03/10/21 03/10/21 10:27 15:25 18:10 WBC RBC Hgb Hct Seg Neuts % (Manual) Lymphocytes % (Manual) Monocytes % (Manual) Nucleated RBC % Seg Neutrophils # Man Lymphocytes # (Manual) Monocytes # (Manual) PT INR D-Dimer ABG pH 7.488 H 7.343 L POC ABG pCO2 POC ABG pO2 ABG pO2 50.5 L 60.4 L ABG HCO3 27.9 H ABG O2 Saturation 87.9 L 88.7 L ABG Oxyhemoglobin ABG Potassium ABG Glucose Oxyhemoglobin 86.2 L 86.9 L Sodium Chloride BUN Glucose POC Glucose 155 H Lactic Acid Ferritin Lactate Dehydrogenase C-Reactive Protein NT-Pro-B Natriuret Pep Total Protein Albumin Arterial Blood Glucose Ur Specific [place] Coronavirus (PCR) 03/10/21 03/11/21 03/11/21 18:55 00:07 02:09 WBC RBC Hgb Hct Seg Neuts % (Manual) Lymphocytes % (Manual) Monocytes % (Manual) Nucleated RBC % Seg Neutrophils # Man Lymphocytes # (Manual) Monocytes # (Manual) PT INR D-Dimer ABG pH 7.277 L POC ABG pCO2 55.9 H POC ABG pO2 54.4 L ABG pO2 ABG HCO3 ABG O2 Saturation ABG Oxyhemoglobin 83.0 L ABG Potassium 4.8 H ABG Glucose 180 H Oxyhemoglobin Sodium Chloride BUN Glucose POC Glucose 187 H 139 H Lactic Acid Ferritin Lactate Dehydrogenase C-Reactive Protein NT-Pro-B Natriuret Pep Total Protein Albumin Arterial Blood Glucose 180 H Ur Specific [place] Coronavirus (PCR) 03/11/21 03/11/21 03/11/21 04:28 08:06 11:29 WBC RBC Hgb Hct Seg Neuts % (Manual) Lymphocytes % (Manual) Monocytes % (Manual) Nucleated RBC % Seg Neutrophils # Man Lymphocytes # (Manual) Monocytes # (Manual) PT INR D-Dimer ABG pH POC ABG pCO2 POC ABG pO2 ABG pO2 ABG HCO3 ABG O2 Saturation ABG Oxyhemoglobin ABG Potassium ABG Glucose Oxyhemoglobin Sodium Chloride BUN 38 H Glucose 249 H POC Glucose 278 H 288 H Lactic Acid Ferritin Lactate Dehydrogenase C-Reactive Protein NT-Pro-B Natriuret Pep Total Protein Albumin 3.2 L Arterial Blood Glucose Ur Specific [place] Coronavirus (PCR) 03/11/21 03/11/21 03/12/21 15:06 15:48 00:01 WBC RBC Hgb Hct Seg Neuts % (Manual) Lymphocytes % (Manual) Monocytes % (Manual) Nucleated RBC % Seg Neutrophils # Man Lymphocytes # (Manual) Monocytes # (Manual) PT INR D-Dimer ABG pH 7.260 L POC ABG pCO2 POC ABG pO2 ABG pO2 53.5 L ABG HCO3 29.5 H ABG O2 Saturation 84.0 L ABG Oxyhemoglobin ABG Potassium ABG Glucose Oxyhemoglobin 82.3 L Sodium Chloride BUN Glucose POC Glucose 295 H 304 H Lactic Acid Ferritin Lactate Dehydrogenase C-Reactive Protein NT-Pro-B Natriuret Pep Total Protein Albumin Arterial Blood Glucose Ur Specific [place] Coronavirus (PCR) 03/12/21 03/12/21 03/12/21 05:24 08:03 08:03 WBC 14.6 H RBC Hgb Hct Seg Neuts % (Manual) Lymphocytes % (Manual) Monocytes % (Manual) Nucleated RBC % Seg Neutrophils # Man Lymphocytes # (Manual) Monocytes # (Manual) PT INR D-Dimer ABG pH POC ABG pCO2 POC ABG pO2 ABG pO2 ABG HCO3 ABG O2 Saturation ABG Oxyhemoglobin ABG Potassium ABG Glucose Oxyhemoglobin Sodium 135 L Chloride BUN 48 H Glucose 358 H POC Glucose 310 H Lactic Acid Ferritin Lactate Dehydrogenase C-Reactive Protein NT-Pro-B Natriuret Pep Total Protein 6.0 L Albumin 2.9 L Arterial Blood Glucose Ur Specific [place] Coronavirus (PCR) 03/12/21 03/12/21 10:43 11:31 WBC RBC Hgb Hct Seg Neuts % (Manual) Lymphocytes % (Manual) Monocytes % (Manual) Nucleated RBC % Seg Neutrophils # Man Lymphocytes # (Manual) Monocytes # (Manual) PT INR D-Dimer ABG pH 7.248 L POC ABG pCO2 POC ABG pO2 ABG pO2 73.7 L ABG HCO3 32.0 H ABG O2 Saturation 93.9 L ABG Oxyhemoglobin ABG Potassium ABG Glucose Oxyhemoglobin 92.1 L Sodium Chloride BUN Glucose POC Glucose 359 H Lactic Acid Ferritin Lactate Dehydrogenase C-Reactive Protein NT-Pro-B Natriuret Pep Total Protein Albumin Arterial Blood Glucose Ur Specific [place] Coronavirus (PCR) Chest x-ray: pending Allied health notes reviewed: nursing
[2021-03-12] MEDS ORDERED: INSULIN REGULAR, HUMAN 100 UNITS/1 ML IV ONE (18:35)
[2021-03-12] MEDS: FAMOTIDINE 20 MG TAB FEEDTUBE SCH (21:48)
[2021-03-12] MEDS: REMDESIVIR 100 MG in SODIUM CHLORIDE 0.9% 250ML 250 ML IV SCH (21:49)
[2021-03-12] MEDS: SODIUM CHLORIDE 0.9% 50 ML IVPB IV SCH (21:50)
[2021-03-13] MEDS: INSULIN LISPRO 100 UNIT/ML SUB-Q SCH ×4 (00:13→17:09)
[2021-03-13] MEDS: fentaNYL DRIP Premix 2,000 MCG/100 ML BAG IV SCH ×4 (01:49→20:40)
--- NOTE | 2021-03-13 04:24 | XRay Report ---
CHEST 1 VIEW 03/13/2021 2:48 AM INDICATION / CLINICAL INFORMATION: Pneumonia. COMPARISON: 03/11/21 FINDINGS: SUPPORT DEVICES: Stable, satisfactory device positioning. HEART / MEDIASTINUM: Stable. LUNGS / PLEURA: Bilateral pulmonary opacities are unchanged. No pneumothorax. ADDITIONAL FINDINGS: No significant additional findings. IMPRESSION: 1. No significant change. Signer Name: Judie Diaz MD Signed: 03/13/2021 4:20 AM Workstation Name: [id number]
[2021-03-13] MEDS: methylPREDNISolone Sod Succinate 125 MG/2 ML INJ IV SCH ×3 (05:32→21:58)
[2021-03-13 06:29] LABS: Hematocrit 42.9 % (35.5-45.6); Hemoglobin 13.7 gm/dl (11.8-15.2); Mean Corpuscular HGB Conc 32 % (32-34); Mean Corpuscular Volume 93 fl (84-94); Platelet Count 319 K/mm3 (140-440); Red Blood Count 4.59 M/mm3 (3.65-5.03); Red Cell Distribution Width 14.5 % (13.2-15.2)
[2021-03-13 06:39] LABS: C-Reactive Protein 2.8 mg/dL (0.00-1.30)
[2021-03-13] MEDS ORDERED: INSULIN GLARGINE 100 UNITS/ML SUB-Q SCH ×2 (08:00→22:00)
[2021-03-13] MEDS: ENOXAPARIN 100 MG/1 ML INJ SUB-Q SCH ×2 (09:05→21:57)
[2021-03-13] MEDS: FAMOTIDINE 20 MG TAB FEEDTUBE SCH ×2 (09:06→21:58)
[2021-03-13] MEDS: ASCORBIC ACID 500 MG TAB PO SCH ×2 (09:06→21:59)
[2021-03-13] MEDS: SENNOSIDES/DOCUSATE SODIUM 8.6/50 MG TAB FEEDTUBE SCH ×2 (09:07→21:58)
[2021-03-13] MEDS: ZINC SULFATE 220 MG CAP PO SCH ×2 (09:07→21:59)
[2021-03-13] MEDS: hydrALAZINE 25 MG TAB PO SCH ×2 (09:09→21:57)
[2021-03-13 11:23] LABS: ABG Base Excess 5.5 mmol/L (-2.0-3.0); ABG HCO3 34.1 mmol/L (20.0-26.0); ABG Methemoglobin 0.8 % (0.0-1.5); ABG Oxygen Saturation 86.8 % (95.0-99.0); ABG PCO2 69.2 mm Hg; ABG PH 7.31 pH Units (7.350-7.450); ABG PO2 52.3 mm Hg (80.0-90.0)
--- NOTE | 2021-03-13 11:42 | Progress Note ---
Assessment and Plan Acute hypoxemic respiratory failure, on MVS COVID-19 infection Bilateral pneumonia History of diabetes Obesity Hypertension Leukocytosis Possible venous thromboembolic phenomena with significantly elevated D-dimers DM II Elevated serum inflammatory markers to include CRP levels, ferritin and LDH - VAP bundle addressed, aspiration precautions - continue to titrate supplemental oxygen to keep SpO2 88-90%, currently on PEEP 10 and FIO2 50% ( FIO2 was increased based on morning ABG) -Lung protective strategies, permissive hypercapina is acceptable -Give IV Lasix 20mg x1 now, follow up BMP at 6pm - aspiration precautions - continue bronchodilators with pulmonary hygiene per RT - continue accuchecks with glycemic control per SSI (While critically ill target blood glucose of 140-180 mg/dL; avoid hypoglycemia) -Lantus insulin was adjusted fro ongoing sub-optimal glycemic control. Blood glucose in between 200-300 - avoid nephrotoxins, renally dose all medications - avoid benzodiazepines, reduce the possibility of delirium - sedation target for RASS 0 to -1 -On Propofol and Fentanyl - prn analgesia per pain score - Maintenance of sleep-wake cycle, avoid delirium - Stress ulcer prophylaxis -Therapeutic anticoagulation- on Enoxaparin - PT/OT/ROM exercises - mobility protocols for pressure ulcer prophylaxis - Monitor hemodynamics closely - continue other care per attending / other consultants COVID SPECIFIC INTERVENTIONS - Remdesivir as per ID/Pulmonary developed protocols - continue systemic steroids for severe COVID-19 infection (Decadron) - Monitor inflammatory markers per facility protocol - ferritin, Ddimer, CRP - therapeutic anticoagulation per system Protocol based on d-dimer and clinical considerations -on therapeutic enoxaparin - Continue contact and airborne isolation CONDITION: CRITICAL PROGNOSIS: GUARDED CODE STATUS: FULL CODE The high probability of a clinically significant, sudden or life-threatening deterioration of the [respiratory, cardiovascular & hematologic] system(s) r equired my full and direct attention, intervention and personal management. The aggregate critical care time was [35] minutes without overlap. Time includes spent on; [x] Data Review and interpretation [x] Patient assessment and monitoring of vital signs [x] Documentation [x] Medication orders and management Subjective Date of service: 03/13/21 Principal diagnosis: AHRF; COVID-19 infection; DM II; Bilateral pneumonia; Obesity; HTN Interval history: Patient is seen today for: Acute hypoxemic respiratory failure; COVID-19 infection; DM II; Bilateral pneumonia; Obesity; HTN Seen and examined at bedside; 24hour events reviewed; nursing and respiratory care staff consulted; no adverse overnight events reported to me; resting in bed; well sedated; on MVS PEEP +10, FIO2 50%; no emesis or overt aspiration; afebrile On Propofol and Fentanyl. Positive fluid balance +5 liters since admission Objective Vital Signs - 12hr 03/12/21 03/13/21 03/13/21 23:51 00:00 00:30 Temperature Pulse Rate 95 H 96 H 97 H Pulse Rate [ Anterior] Pulse Rate [ Bilateral Throughout] Pulse Rate [ 97 H From Monitor] Respiratory 25 H 22 25 H Rate Respiratory Rate [Anterior] Respiratory Rate [Bilateral Throughout] Blood Pressure 132/62 134/63 132/66 O2 Sat by Pulse 95 96 95 Oximetry 03/13/21 03/13/21 03/13/21 00:40 01:00 01:30 Temperature 99.2 F Pulse Rate 97 H 96 H 96 H Pulse Rate [ Anterior] Pulse Rate [ Bilateral Throughout] Pulse Rate [ From Monitor] Respiratory 22 25 H Rate Respiratory Rate [Anterior] Respiratory Rate [Bilateral Throughout] Blood Pressure 129/64 122/63 O2 Sat by Pulse 94 97 Oximetry 03/13/21 03/13/21 03/13/21 02:00 02:30 03:00 Temperature Pulse Rate 95 H 98 H 96 H Pulse Rate [ Anterior] Pulse Rate [ Bilateral Throughout] Pulse Rate [ From Monitor] Respiratory 24 24 21 Rate Respiratory Rate [Anterior] Respiratory Rate [Bilateral Throughout] Blood Pressure 131/64 131/62 135/65 O2 Sat by Pulse 96 97 98 Oximetry 03/13/21 03/13/21 03/13/21 03:30 03:41 04:00 Temperature 99.3 F Pulse Rate 101 H 99 H Pulse Rate [ Anterior] Pulse Rate [ Bilateral Throughout] Pulse Rate [ 99 H From Monitor] Respiratory 22 22 Rate Respiratory Rate [Anterior] Respiratory Rate [Bilateral Throughout] Blood Pressure 131/67 146/72 O2 Sat by Pulse 97 96 Oximetry 03/13/21 03/13/21 03/13/21 04:30 05:00 05:30 Temperature Pulse Rate 99 H 100 H 99 H Pulse Rate [ Anterior] Pulse Rate [ Bilateral Throughout] Pulse Rate [ From Monitor] Respiratory 21 22 20 Rate Respiratory Rate [Anterior] Respiratory Rate [Bilateral Throughout] Blood Pressure 130/58 129/52 129/52 O2 Sat by Pulse 96 97 97 Oximetry 01/17/22 01/17/22 01/17/22 06:00 06:30 07:00 Temperature Pulse Rate 100 H 101 H 102 H Pulse Rate [ Anterior] Pulse Rate [ Bilateral Throughout] Pulse Rate [ From Monitor] Respiratory 25 H 26 H 17 Rate Respiratory Rate [Anterior] Respiratory Rate [Bilateral Throughout] Blood Pressure 146/72 148/66 157/70 O2 Sat by Pulse 97 97 93 Oximetry 03/13/21 03/13/21 03/13/21 07:30 07:35 07:50 Temperature 99.9 F H Pulse Rate 101 H 97 H Pulse Rate [ Anterior] Pulse Rate [ Bilateral Throughout] Pulse Rate [ From Monitor] Respiratory 13 Rate Respiratory Rate [Anterior] Respiratory Rate [Bilateral Throughout] Blood Pressure 130/70 123/67 O2 Sat by Pulse 97 97 Oximetry 03/13/21 03/13/21 03/13/21 08:00 08:30 09:00 Temperature Pulse Rate 99 H 97 H 98 H Pulse Rate [ 103 H Anterior] Pulse Rate [ 103 H Bilateral Throughout] Pulse Rate [ 98 H From Monitor] Respiratory 15 25 H 25 H Rate Respiratory 25 H Rate [Anterior] Respiratory 25 H Rate [Bilateral Throughout] Blood Pressure 123/67 125/67 124/66 O2 Sat by Pulse 96 100 100 Oximetry 03/13/21 03/13/21 03/13/21 09:30 10:00 10:30 Temperature Pulse Rate 96 H 97 H 97 H Pulse Rate [ Anterior] Pulse Rate [ Bilateral Throughout] Pulse Rate [ From Monitor] Respiratory 25 H 15 25 H Rate Respiratory Rate [Anterior] Respiratory Rate [Bilateral Throughout] Blood Pressure 127/67 123/70 133/70 O2 Sat by Pulse 100 97 97 Oximetry 03/13/21 11:00 Temperature Pulse Rate 99 H Pulse Rate [ Anterior] Pulse Rate [ Bilateral Throughout] Pulse Rate [ From Monitor] Respiratory 25 H Rate Respiratory Rate [Anterior] Respiratory Rate [Bilateral Throughout] Blood Pressure 139/65 O2 Sat by Pulse 97 Oximetry Constitutional: no acute distress, other (elderly obese male without ventilator dyssynchrony at rest) Eyes: non-icteric ENT: oropharynx moist, other (ETT 24 cm CHAITANYA) Neck: supple, no lymphadenopathy, no JVD, other (large circumference) Effort: mildly labored Ascultation: Bilateral: rhonchi Percussion: Bilateral: not dull Cardiovascular: regular rate and rhythm, other (S1,S2) Gastrointestinal: normoactive bowel sounds, soft, non-tender, non-distended (protuberant) Integumentary: rash Extremities: no cyanosis, no edema, pulses normal, no ischemia or petechiae Neurologic: non-focal exam (grossly), pupils equal and round, unable to assess, other (sedated) Psychiatric: other (unable to assess re: AMS) CBC and BMP: 03/14/21 05:50 03/14/21 05:50 ABG, PT/INR, D-dimer: ABG ABG pH 7.310 pH Units (7.350-7.450) L 03/13/21 11:15 POC ABG pCO2 71.9 mmHg (32.0-48.0) H 03/12/21 21:54 ABG pCO2 69.2 mm Hg 03/13/21 11:15 POC ABG pO2 53.6 mmHg (83-108) L 03/12/21 21:54 ABG pO2 52.3 mm Hg (80.0-90.0) L 03/13/21 11:15 POC ABG HCO3 30.0 03/12/21 21:54 ABG O2 Saturation 86.8 % (95.0-99.0) L 03/13/21 11:15 PT/INR, D-dimer PT 16.1 Sec. (12.2-14.9) H 03/08/21 20:24 INR 1.17 (0.87-1.13) H 03/08/21 20:24 D-Dimer 3567.97 ng/mlDDU (0-234) H 03/13/21 05:44 Abnormal lab findings: Abnormal Labs 03/08/21 03/08/21 03/08/21 20:24 20:24 20:24 WBC 22.6 H RBC 5.44 H Hgb 15.7 H Hct 49.2 H Seg Neuts % (Manual) 83.0 H Lymphocytes % (Manual) 9.0 L Monocytes % (Manual) 8.0 H Nucleated RBC % Seg Neutrophils # Man 18.8 H Lymphocytes # (Manual) Monocytes # (Manual) 1.8 H PT 16.1 H INR 1.17 H D-Dimer > 60286 H ABG pH POC ABG pCO2 POC ABG pO2 ABG pO2 ABG HCO3 ABG O2 Saturation ABG Base Excess ABG Hemoglobin ABG Oxyhemoglobin ABG Sodium ABG Potassium ABG Glucose Oxyhemoglobin Sodium 136 L Chloride 93.9 L BUN 29 H Glucose 208 H POC Glucose Lactic Acid Ferritin Lactate Dehydrogenase 624 H C-Reactive Protein 18.00 H NT-Pro-B Natriuret Pep 1053 H Total Protein Albumin Arterial Blood Glucose Ur Specific [place] Coronavirus (PCR) 03/08/21 03/08/21 03/09/21 20:24 20:24 04:10 WBC RBC Hgb Hct Seg Neuts % (Manual) Lymphocytes % (Manual) Monocytes % (Manual) Nucleated RBC % Seg Neutrophils # Man Lymphocytes # (Manual) Monocytes # (Manual) PT INR D-Dimer ABG pH POC ABG pCO2 POC ABG pO2 ABG pO2 ABG HCO3 ABG O2 Saturation ABG Base Excess ABG Hemoglobin ABG Oxyhemoglobin ABG Sodium ABG Potassium ABG Glucose Oxyhemoglobin Sodium Chloride BUN Glucose POC Glucose Lactic Acid 2.10 H* Ferritin 877.5 H Lactate Dehydrogenase C-Reactive Protein NT-Pro-B Natriuret Pep Total Protein Albumin Arterial Blood Glucose Ur Specific [place] 1.041 H Coronavirus (PCR) 03/09/21 03/09/21 03/09/21 07:46 08:00 13:01 WBC RBC Hgb Hct Seg Neuts % (Manual) Lymphocytes % (Manual) Monocytes % (Manual) Nucleated RBC % Seg Neutrophils # Man Lymphocytes # (Manual) Monocytes # (Manual) PT INR D-Dimer ABG pH POC ABG pCO2 POC ABG pO2 ABG pO2 ABG HCO3 ABG O2 Saturation ABG Base Excess ABG Hemoglobin ABG Oxyhemoglobin ABG Sodium ABG Potassium ABG Glucose Oxyhemoglobin Sodium Chloride BUN Glucose POC Glucose 191 H 182 H Lactic Acid Ferritin Lactate Dehydrogenase C-Reactive Protein NT-Pro-B Natriuret Pep Total Protein Albumin Arterial Blood Glucose Ur Specific [place] Coronavirus (PCR) Positive A 03/09/21 03/09/21 03/09/21 15:19 17:48 18:10 WBC RBC Hgb Hct Seg Neuts % (Manual) Lymphocytes % (Manual) Monocytes % (Manual) Nucleated RBC % Seg Neutrophils # Man Lymphocytes # (Manual) Monocytes # (Manual) PT INR D-Dimer ABG pH POC ABG pCO2 POC ABG pO2 ABG pO2 47.3 L ABG HCO3 26.3 H ABG O2 Saturation 83.7 L ABG Base Excess ABG Hemoglobin ABG Oxyhemoglobin ABG Sodium ABG Potassium ABG Glucose Oxyhemoglobin 82.1 L Sodium Chloride BUN 29 H Glucose 214 H POC Glucose 194 H Lactic Acid Ferritin Lactate Dehydrogenase C-Reactive Protein NT-Pro-B Natriuret Pep Total Protein Albumin 3.4 L Arterial Blood Glucose Ur Specific [place] Coronavirus (PCR) 03/10/21 03/10/21 03/10/21 04:29 04:29 05:22 WBC 20.6 H RBC 5.07 H Hgb Hct 46.2 H Seg Neuts % (Manual) 94.0 H Lymphocytes % (Manual) 1.0 L Monocytes % (Manual) Nucleated RBC % 3.0 H Seg Neutrophils # Man 19.4 H Lymphocytes # (Manual) 0.2 L Monocytes # (Manual) 1.0 H PT INR D-Dimer ABG pH 7.488 H POC ABG pCO2 POC ABG pO2 ABG pO2 47.7 L ABG HCO3 ABG O2 Saturation 86.2 L ABG Base Excess ABG Hemoglobin ABG Oxyhemoglobin ABG Sodium ABG Potassium ABG Glucose Oxyhemoglobin 84.6 L Sodium Chloride BUN 29 H Glucose 188 H POC Glucose Lactic Acid Ferritin Lactate Dehydrogenase C-Reactive Protein NT-Pro-B Natriuret Pep Total Protein Albumin 3.3 L Arterial Blood Glucose Ur Specific [place] Coronavirus (PCR) 03/10/21 03/10/21 03/10/21 10:27 15:25 18:10 WBC RBC Hgb Hct Seg Neuts % (Manual) Lymphocytes % (Manual) Monocytes % (Manual) Nucleated RBC % Seg Neutrophils # Man Lymphocytes # (Manual) Monocytes # (Manual) PT INR D-Dimer ABG pH 7.488 H 7.343 L POC ABG pCO2 POC ABG pO2 ABG pO2 50.5 L 60.4 L ABG HCO3 27.9 H ABG O2 Saturation 87.9 L 88.7 L ABG Base Excess ABG Hemoglobin ABG Oxyhemoglobin ABG Sodium ABG Potassium ABG Glucose Oxyhemoglobin 86.2 L 86.9 L Sodium Chloride BUN Glucose POC Glucose 155 H Lactic Acid Ferritin Lactate Dehydrogenase C-Reactive Protein NT-Pro-B Natriuret Pep Total Protein Albumin Arterial Blood Glucose Ur Specific [place] Coronavirus (PCR) 03/10/21 03/11/21 03/11/21 18:55 00:07 02:09 WBC RBC Hgb Hct Seg Neuts % (Manual) Lymphocytes % (Manual) Monocytes % (Manual) Nucleated RBC % Seg Neutrophils # Man Lymphocytes # (Manual) Monocytes # (Manual) PT INR D-Dimer ABG pH 7.277 L POC ABG pCO2 55.9 H POC ABG pO2 54.4 L ABG pO2 ABG HCO3 ABG O2 Saturation ABG Base Excess ABG Hemoglobin ABG Oxyhemoglobin 83.0 L ABG Sodium ABG Potassium 4.8 H ABG Glucose 180 H Oxyhemoglobin Sodium Chloride BUN Glucose POC Glucose 187 H 139 H Lactic Acid Ferritin Lactate Dehydrogenase C-Reactive Protein NT-Pro-B Natriuret Pep Total Protein Albumin Arterial Blood Glucose 180 H Ur Specific [place] Coronavirus (PCR) 03/11/21 03/11/21 03/11/21 04:28 08:06 11:29 WBC RBC Hgb Hct Seg Neuts % (Manual) Lymphocytes % (Manual) Monocytes % (Manual) Nucleated RBC % Seg Neutrophils # Man Lymphocytes # (Manual) Monocytes # (Manual) PT INR D-Dimer ABG pH POC ABG pCO2 POC ABG pO2 ABG pO2 ABG HCO3 ABG O2 Saturation ABG Base Excess ABG Hemoglobin ABG Oxyhemoglobin ABG Sodium ABG Potassium ABG Glucose Oxyhemoglobin Sodium Chloride BUN 38 H Glucose 249 H POC Glucose 278 H 288 H Lactic Acid Ferritin Lactate Dehydrogenase C-Reactive Protein NT-Pro-B Natriuret Pep Total Protein Albumin 3.2 L Arterial Blood Glucose Ur Specific [place] Coronavirus (PCR) 03/11/21 03/11/21 03/12/21 15:06 15:48 00:01 WBC RBC Hgb Hct Seg Neuts % (Manual) Lymphocytes % (Manual) Monocytes % (Manual) Nucleated RBC % Seg Neutrophils # Man Lymphocytes # (Manual) Monocytes # (Manual) PT INR D-Dimer ABG pH 7.260 L POC ABG pCO2 POC ABG pO2 ABG pO2 53.5 L ABG HCO3 29.5 H ABG O2 Saturation 84.0 L ABG Base Excess ABG Hemoglobin ABG Oxyhemoglobin ABG Sodium ABG Potassium ABG Glucose Oxyhemoglobin 82.3 L Sodium Chloride BUN Glucose POC Glucose 295 H 304 H Lactic Acid Ferritin Lactate Dehydrogenase C-Reactive Protein NT-Pro-B Natriuret Pep Total Protein Albumin Arterial Blood Glucose Ur Specific [place] Coronavirus (PCR) 03/12/21 03/12/21 03/12/21 05:24 08:03 08:03 WBC 14.6 H RBC Hgb Hct Seg Neuts % (Manual) Lymphocytes % (Manual) Monocytes % (Manual) Nucleated RBC % Seg Neutrophils # Man Lymphocytes # (Manual) Monocytes # (Manual) PT INR D-Dimer ABG pH POC ABG pCO2 POC ABG pO2 ABG pO2 ABG HCO3 ABG O2 Saturation ABG Base Excess ABG Hemoglobin ABG Oxyhemoglobin ABG Sodium ABG Potassium ABG Glucose Oxyhemoglobin Sodium 135 L Chloride BUN 48 H Glucose 358 H POC Glucose 310 H Lactic Acid Ferritin Lactate Dehydrogenase C-Reactive Protein NT-Pro-B Natriuret Pep Total Protein 6.0 L Albumin 2.9 L Arterial Blood Glucose Ur Specific [place] Coronavirus (PCR) 03/12/21 03/12/21 03/12/21 10:43 11:31 17:20 WBC RBC Hgb Hct Seg Neuts % (Manual) Lymphocytes % (Manual) Monocytes % (Manual) Nucleated RBC % Seg Neutrophils # Man Lymphocytes # (Manual) Monocytes # (Manual) PT INR D-Dimer ABG pH 7.248 L POC ABG pCO2 POC ABG pO2 ABG pO2 73.7 L ABG HCO3 32.0 H ABG O2 Saturation 93.9 L ABG Base Excess ABG Hemoglobin ABG Oxyhemoglobin ABG Sodium ABG Potassium ABG Glucose Oxyhemoglobin 92.1 L Sodium Chloride BUN Glucose POC Glucose 359 H 374 H Lactic Acid Ferritin Lactate Dehydrogenase C-Reactive Protein NT-Pro-B Natriuret Pep Total Protein Albumin Arterial Blood Glucose Ur Specific [place] Coronavirus (PCR) 03/12/21 03/13/21 03/13/21 21:54 00:02 05:22 WBC RBC Hgb Hct Seg Neuts % (Manual) Lymphocytes % (Manual) Monocytes % (Manual) Nucleated RBC % Seg Neutrophils # Man Lymphocytes # (Manual) Monocytes # (Manual) PT INR D-Dimer ABG pH 7.238 L POC ABG pCO2 71.9 H POC ABG pO2 53.6 L ABG pO2 ABG HCO3 ABG O2 Saturation ABG Base Excess ABG Hemoglobin ABG Oxyhemoglobin 84.8 L ABG Sodium 134.2 L ABG Potassium 4.9 H ABG Glucose 306 H Oxyhemoglobin Sodium Chloride BUN Glucose POC Glucose 308 H 316 H Lactic Acid Ferritin Lactate Dehydrogenase C-Reactive Protein NT-Pro-B Natriuret Pep Total Protein Albumin Arterial Blood Glucose 306 H Ur Specific [place] Coronavirus (PCR) 03/13/21 03/13/21 03/13/21 05:44 05:44 05:44 WBC 13.9 H RBC Hgb Hct Seg Neuts % (Manual) Lymphocytes % (Manual) Monocytes % (Manual) Nucleated RBC % Seg Neutrophils # Man Lymphocytes # (Manual) Monocytes # (Manual) PT INR D-Dimer 3567.97 H ABG pH POC ABG pCO2 POC ABG pO2 ABG pO2 ABG HCO3 ABG O2 Saturation ABG Base Excess ABG Hemoglobin ABG Oxyhemoglobin ABG Sodium ABG Potassium ABG Glucose Oxyhemoglobin Sodium Chloride BUN Glucose POC Glucose Lactic Acid Ferritin 858.7 H Lactate Dehydrogenase C-Reactive Protein NT-Pro-B Natriuret Pep Total Protein Albumin Arterial Blood Glucose Ur Specific [place] Coronavirus (PCR) 03/13/21 03/13/21 03/13/21 05:44 11:15 11:21 WBC RBC Hgb Hct Seg Neuts % (Manual) Lymphocytes % (Manual) Monocytes % (Manual) Nucleated RBC % Seg Neutrophils # Man Lymphocytes # (Manual) Monocytes # (Manual) PT INR D-Dimer ABG pH 7.310 L POC ABG pCO2 POC ABG pO2 ABG pO2 52.3 L ABG HCO3 34.1 H ABG O2 Saturation 86.8 L ABG Base Excess 5.5 H ABG Hemoglobin 13.8 L ABG Oxyhemoglobin ABG Sodium ABG Potassium ABG Glucose Oxyhemoglobin 85.1 L Sodium Chloride BUN Glucose POC Glucose 322 H Lactic Acid Ferritin Lactate Dehydrogenase 348 H C-Reactive Protein 2.80 H NT-Pro-B Natriuret Pep Total Protein Albumin Arterial Blood Glucose Ur Specific [place] Coronavirus (PCR) Chest x-ray: image reviewed (Bilateral alveolar infiltrates) Allied health notes reviewed: RT
[2021-03-13] MEDS ORDERED: FUROSEMIDE 20 MG/2 ML INJ IV NR (12:17)
--- NOTE | 2021-03-13 13:17 | Progress Note ---
<DEBBY ELLISON - Last Filed: 03/14/21 11:05> Assessment and Plan Assessment and plan: This is a 61-year-old male with past medical history of HTN and DM admitted for sepsis and acute hypoxic respiratory failure 2/2 COVID pneumonia requiring ventilatory support. Hospital Course to Date: 03/09: The patient was seen and evaluated today, and he was found to be hemodynamically stable. The patient is currently on BiPAP for possible COVID-19 pneumonia. He was started on Lovenox 1mg/kg for DVT ppx in the setting of d- dimer > 10,000. Infectious Disease was consulted. The patient is pending a TTE. 03/10: No acute events overnight, patient was intubated in the afternoon transferred to ICU 03/11: Patient started on Lantus, free water flushes increased, propofol drip resumed and oral antihypertensive added. 03/12: lantus increased, k at 5, will monitor. I updated his family and his stated that he is not vaccinated. He does have HTN and she will call the RN to update home medications. She did say he takes bystolic and amlopine. She inquired about ventilator and lab work. She had no further questions. 03/13: KVNG overnight. Patient remains hyperglycemic, basal insulin adjusted and increased to Q12hrs. Patient is overall net positive since admit X1 dose of IV lasix, repeat BMP this afternoon. Assessment and Plan #Neuro: Sedated - Intubated and sedated on propofol and fentanyl, RASS -2 - Titrate sedation for RASS goal of 0 to -1 - Daily SAT and SBT per [facility] - Avoid benzodiazepine to reduce the possibility of delirium - Prn analgesia for CPOT greater than 3 - Maintenance of sleep-wake cycle #CV: Hypertension - BP stable this am - 03/09 Echocardiogram shows a mildly dilated ascending aorta, normal LV systolic function, mild concentric LVH, LVEF 60 to 65% - Continue PO Hydralazine - PRN Antihypertensive for SBP above 160 - Continue Blood pressure monitoring per protocol #Acute Hypoxic Respiratory Failure #COVID Pneumonia - Intubated on 03/10 due to worsen hypoxia on BIPAP - COVID swab positive - CXR showed bilateral patchy infiltrates - CT chest shows severe patchy multifocal groundglass airspace disease - Vent setting:PRVC-40%,10,25,450 - AM ABG noted - CCM consulted, appreciate recommendations - Continue IV Steroids and Nebs per CCM - X1dose of IV lasix today, plan to keep patient net negative for better lung compliance - VAP bundle addressed - Aspiration precaution HOB above 30 - Daily SBT and SAT trials as tolerated - Daily ABG and CXR - Continue SPO2 monitoring for SPO2 goal above 92% #GI:TF - Continue enteral nutrition - Nutrition consulted - Continue PPI and BR #Hyperkalemia - Stable at 5 - X1dose of IV lasix today, repeat BMp ordered - Strict intake and output - Avoid nephrotoxic medications; Renally dose medications - Good in place - Monitor and replace electrolytes as needed -Trend BMP #Elevated D-dimer - Most likely due to COVID - Bilateral lower extremity ultrasounds negative for DVT, superficial thrombus in left gastrocnemius vein - CTA chest shows no gross pulm embolism - H&H stable - Continue AC- Lovenox SubQ - SCDs to BLE while in bed - Transfuse hemoglobin less than 7 - Monitor for signs of bleeding #Sepsis #COVID Pneumonia #Leukocytosis #Lactic Acidosis- Resolved - COVID PCR positive - UA neg, Blood cultures and Sputum culture NGTD - Infectious disease consulted, appreciate recommendation - S/p Actemra 03/10/2021 - Continue IV remdesivir for 5 days - Dexamethasone x10 days - Prophylactic anticoagulation per hospital protocol - Patient remains afebrile, WBCs downstrending - Monitor WBC and temperature curve - Trend CBC #Endo:Hyperglycemia #h/o DM - Patient on IV steroids - Continue high dose SSI Q6hrs - Basal insulin increased to BID The high probability of a clinically significant, sudden or life threatening deterioration of the [multi] system(s) required my full and direct attention, intervention and personal management. The aggregate critical care time was [60] minutes. This time is in addition to time spent performing reported procedures but includes the following: [x] Data Review and interpretation [x] Patient assessment and monitoring of vital signs [x] Documentation [x] Medication orders and management Disposition Plan: ICU Total Time Spent with Patient (Minutes): 60 History Interval history: Patient seen and examined at the bedside. Intubated and sedated RASS -2. KVNG overnight Hospitalist Physical - Constitutional Vitals: Temp Pulse Resp BP Pulse Ox 99.7 F H 98 H 22 131/69 100 03/13/21 12:00 03/13/21 12:00 03/13/21 12:00 03/13/21 12:00 03/13/21 12:10 General appearance: Present: no acute distress, well-nourished, obese, other (Intubated and sedated) - EENT Eyes: Present: PERRL - Respiratory Respiratory effort: normal Respiratory: bilateral: rhonchi - Cardiovascular Rhythm: regular Heart Sounds: Present: S1 & S2 - Extremities Extremities: no ischemia, pulses intact, pulses symmetrical Extremity abnormal: edema - Peripheral Assessment Generalized Edema Type: Non-pitting Edema Degree: 2+ Capillary Refill: < 3 seconds Skin Temperature: Warm Peripheral Pulses: within normal limits - Abdominal General gastrointestinal: soft, non-distended, normal bowel sounds - Integumentary Integumentary: Present: warm, dry - Psychiatric Psychiatric: other (Intubated and sedated) - Neurologic Neurologic: other (Intubated and sedated) - Allied Health Allied health notes reviewed: nursing Results - Labs CBC & Chem 7: 03/14/21 05:50 03/14/21 05:50 Labs: Laboratory Last Values WBC 13.9 K/mm3 (4.5-11.0) H 03/13/21 05:44 RBC 4.59 M/mm3 (3.65-5.03) 03/13/21 05:44 Hgb 13.7 gm/dl (11.8-15.2) 03/13/21 05:44 Hct 42.9 % (35.5-45.6) 03/13/21 05:44 MCV 93 fl (84-94) 03/13/21 05:44 MCH 30 pg (28-32) 03/13/21 05:44 MCHC 32 % (32-34) 03/13/21 05:44 RDW 14.5 % (13.2-15.2) 03/13/21 05:44 Plt Count 319 K/mm3 (140-440) 03/13/21 05:44 Add Manual Diff Complete 03/10/21 04:29 Total Counted 100 03/10/21 04:29 Seg Neuts % (Manual) 94.0 % (40.0-70.0) H 03/10/21 04:29 Band Neutrophils % 0 % 03/10/21 04:29 Lymphocytes % (Manual) 1.0 % (13.4-35.0) L 03/10/21 04:29 Reactive Lymphs % (Man) 0 % 03/10/21 04:29 Monocytes % (Manual) 5.0 % (0.0-7.3) 03/10/21 04:29 Eosinophils % (Manual) 0 % (0.0-4.3) 03/10/21 04:29 Basophils % (Manual) 0 % (0.0-1.8) 03/10/21 04:29 Metamyelocytes % 0 % 03/10/21 04:29 Myelocytes % 0 % 03/10/21 04:29 Promyelocytes % 0 % 03/10/21 04:29 Blast Cells % 0 % 03/10/21 04:29 Nucleated RBC % 3.0 % (0.0-0.9) H 03/10/21 04:29 Seg Neutrophils # Man 19.4 K/mm3 (1.8-7.7) H 03/10/21 04:29 Band Neutrophils # 0.0 K/mm3 03/10/21 04:29 Lymphocytes # (Manual) 0.2 K/mm3 (1.2-5.4) L 03/10/21 04:29 Abs React Lymphs (Man) 0.0 K/mm3 03/10/21 04:29 Monocytes # (Manual) 1.0 K/mm3 (0.0-0.8) H 03/10/21 04:29 Eosinophils # (Manual) 0.0 K/mm3 (0.0-0.4) 03/10/21 04:29 Basophils # (Manual) 0.0 K/mm3 (0.0-0.1) 03/10/21 04:29 Metamyelocytes # 0.0 K/mm3 03/10/21 04:29 Myelocytes # 0.0 K/mm3 03/10/21 04:29 Promyelocytes # 0.0 K/mm3 03/10/21 04:29 Blast Cells # 0.0 K/mm3 03/10/21 04:29 WBC Morphology Not Reportable 03/10/21 04:29 Hypersegmented Neuts Not Reportable 03/10/21 04:29 Hyposegmented Neuts Not Reportable 03/10/21 04:29 Hypogranular Neuts Not Reportable 03/10/21 04:29 Smudge Cells Not Reportable 03/10/21 04:29 Toxic Granulation Not Reportable 03/10/21 04:29 Toxic Vacuolation Not Reportable 03/10/21 04:29 Dohle Bodies Not Reportable 03/10/21 04:29 Pelger-Huet Anomaly Not Reportable 03/10/21 04:29 Mely Rods Not Reportable 03/10/21 04:29 Platelet Estimate Consistent w auto 03/10/21 04:29 Clumped Platelets Not Reportable 03/10/21 04:29 Plt Clumps, EDTA Not Reportable 03/10/21 04:29 Large Platelets Not Reportable 03/10/21 04:29 Giant Platelets Not Reportable 03/10/21 04:29 Platelet Satelliting Not Reportable 03/10/21 04:29 Plt Morphology Comment Not Reportable 03/10/21 04:29 RBC Morphology Normal 03/10/21 04:29 Dimorphic RBCs Not Reportable 03/10/21 04:29 Polychromasia Not Reportable 03/10/21 04:29 Hypochromasia Not Reportable 03/10/21 04:29 Poikilocytosis Not Reportable 03/10/21 04:29 Anisocytosis Not Reportable 03/10/21 04:29 Microcytosis Not Reportable 03/10/21 04:29 Macrocytosis Not Reportable 03/10/21 04:29 Spherocytes Not Reportable 03/10/21 04:29 Pappenheimer Bodies Not Reportable 03/10/21 04:29 Sickle Cells Not Reportable 03/10/21 04:29 Target Cells Not Reportable 03/10/21 04:29 Tear Drop Cells Not Reportable 03/10/21 04:29 Ovalocytes Not Reportable 03/10/21 04:29 Helmet Cells Not Reportable 03/10/21 04:29 [place] Bodies Not Reportable 03/10/21 04:29 [place] Rings Not Reportable 03/10/21 04:29 Shama Cells Not Reportable 03/10/21 04:29 Bite Cells Not Reportable 03/10/21 04:29 Crenated Cell Not Reportable 03/10/21 04:29 Elliptocytes Not Reportable 03/10/21 04:29 Acanthocytes (Spur) Not Reportable 03/10/21 04:29 Rouleaux Not Reportable 03/10/21 04:29 Hemoglobin C Crystals Not Reportable 03/10/21 04:29 Schistocytes Not Reportable 03/10/21 04:29 Malaria parasites Not Reportable 03/10/21 04:29 Shaheen Bodies Not Reportable 03/10/21 04:29 Hem Pathologist Commnt No 03/10/21 04:29 PT 16.1 Sec. (12.2-14.9) H 03/08/21 20:24 INR 1.17 (0.87-1.13) H 03/08/21 20:24 APTT 28.0 Sec. (24.2-36.6) 03/08/21 20:24 D-Dimer 3567.97 ng/mlDDU (0-234) H 03/13/21 05:44 ABG pH 7.310 pH Units (7.350-7.450) L 03/13/21 11:15 POC ABG pCO2 71.9 mmHg (32.0-48.0) H 03/12/21 21:54 ABG pCO2 69.2 mm Hg 03/13/21 11:15 POC ABG pO2 53.6 mmHg (83-108) L 03/12/21 21:54 ABG pO2 52.3 mm Hg (80.0-90.0) L 03/13/21 11:15 POC ABG HCO3 30.0 03/12/21 21:54 ABG HCO3 34.1 mmol/L (20.0-26.0) H 03/13/21 11:15 ABG O2 Saturation 86.8 % (95.0-99.0) L 03/13/21 11:15 ABG O2 Content 16.5 (0.0-44) 03/13/21 11:15 POC ABG Base Excess 0.5 03/12/21 21:54 ABG Base Excess 5.5 mmol/L (-2.0-3.0) H 03/13/21 11:15 ABG Hemoglobin 13.8 gm/dl (14.0-18.0) L 03/13/21 11:15 ABG Oxyhemoglobin 84.8 (94-98) L 03/12/21 21:54 ABG Carboxyhemoglobin 1.2 % (0.0-5.0) 03/13/21 11:15 ABG Methemoglobin 0.8 % (0.0-1.5) 03/13/21 11:15 ABG Sodium 134.2 mmol/L (136.0-145.0) L 03/12/21 21:54 ABG Potassium 4.9 mmol/L (3.40-4.50) H 03/12/21 21:54 ABG Chloride 99.0 mmol/L (98-107) 03/12/21 21:54 ABG Glucose 306 mg/dL (65-95) H 03/12/21 21:54 Oxyhemoglobin 85.1 % (95.0-99.0) L 03/13/21 11:15 Carboxyhemoglobin 0.6 (0.5-1.5) 03/12/21 21:54 FiO2 40 % 03/13/21 11:15 FiO2 % 50.0 03/12/21 21:54 Sodium 135 mmol/L (137-145) L 03/12/21 08:03 Potassium 5.0 mmol/L (3.6-5.0) 03/12/21 08:03 Chloride 100.5 mmol/L (98-107) 03/12/21 08:03 Carbon Dioxide 26 mmol/L (22-30) 03/12/21 08:03 Anion Gap 14 mmol/L 03/12/21 08:03 BUN 48 mg/dL (9-20) H 03/12/21 08:03 Creatinine 1.3 mg/dL (0.8-1.3) 03/12/21 08:03 Estimated GFR 56 ml/min 03/12/21 08:03 BUN/Creatinine Ratio 37 % 03/12/21 08:03 Glucose 358 mg/dL (75-100) H 03/12/21 08:03 POC Glucose 322 mg/dL (70-105) H 03/13/21 11:21 Lactic Acid 1.90 mmol/L (0.7-2.0) 03/08/21 23:51 Calcium 8.4 mg/dL (8.4-10.2) 03/12/21 08:03 Ferritin 858.7 ng/mL (30.0-300.0) H 03/13/21 05:44 Total Bilirubin 0.20 mg/dL (0.1-1.2) 03/12/21 08:03 AST 10 units/L (5-40) 03/12/21 08:03 ALT 16 units/L (7-56) 03/12/21 08:03 Alkaline Phosphatase 77 units/L (35-129) 03/12/21 08:03 Lactate Dehydrogenase 348 units/L (91-180) H 03/13/21 05:44 C-Reactive Protein 2.80 mg/dL (0.00-1.30) H 03/13/21 05:44 NT-Pro-B Natriuret Pep 1053 pg/mL (0-900) H 03/08/21 20:24 Total Protein 6.0 g/dL (6.3-8.2) L 03/12/21 08:03 Albumin 2.9 g/dL (3.9-5) L 03/12/21 08:03 Albumin/Globulin Ratio 0.9 % 03/12/21 08:03 Procalcitonin 0.14 ng/mL (<0.15) 03/10/21 09:47 Arterial Blood Glucose 306 mg/dL (65-95) H 03/12/21 21:54 Arterial Blood Ionized Calcium 5.0 mg/dL (4.6-5.3) 03/12/21 21:54 Urine Color Yellow (Yellow) 03/09/21 04:10 Urine Turbidity Slightly-cloudy (Clear) 03/09/21 04:10 Urine pH 5.0 (5.0-7.0) 03/09/21 04:10 Ur Specific [place] 1.041 (1.003-1.030) H 03/09/21 04:10 Urine Protein 100 mg/dl mg/dL (Negative) 03/09/21 04:10 Urine Glucose (UA) Neg mg/dL (Negative) 03/09/21 04:10 Urine Ketones Neg mg/dL (Negative) 03/09/21 04:10 Urine Blood Mod (Negative) 03/09/21 04:10 Urine Nitrite Neg (Negative) 03/09/21 04:10 Urine Bilirubin Neg (Negative) 03/09/21 04:10 Urine Urobilinogen 2.0 mg/dL (<2.0) 03/09/21 04:10 Ur Leukocyte Esterase Neg (Negative) 03/09/21 04:10 Urine WBC (Auto) 4.0 /HPF (0.0-6.0) 03/09/21 04:10 Urine RBC (Auto) 1.0 /HPF (0.0-6.0) 03/09/21 04:10 Urine Bacteria (Auto) 1+ /HPF (Negative) 03/09/21 04:10 Urine Mucus Few /HPF 03/09/21 04:10 Coronavirus (PCR) Positive (Negative) A 03/09/21 08:00 Microbiology: Microbiology 03/08/21 20:41 Peripheral/Venous Blood Culture - Preliminary NO GROWTH AFTER 4 DAYS 03/08/21 20:24 Peripheral/Venous Blood Culture - Preliminary NO GROWTH AFTER 4 DAYS 03/10/21 15:39 Tracheal Aspirate Sputum Culture - Preliminary Good/IV: Voiding Method Indwelling Catheter Active Medications - Current Medications Current Medications: Generic Name Dose Route Start Last Admin Trade Name Freq PRN Reason Stop Dose Admin Acetaminophen 650 mg 03/09/21 01:26 Acetaminophen 325 Mg Tab PO Q4H PRN Pain MILD(1-3)/Fever >100.5/RAYO Albuterol 2.5 mg 03/09/21 01:26 Albuterol 2.5 Mg/3 Ml Nebu IH Q4HRT PRN Shortness Of Breath Albuterol/Ipratropium 1 ampul 03/11/21 08:00 03/12/21 19:57 Ipratropium/Albuterol Sulfate 3 Ml Ampul.Neb IH 1 ampul TIDRT BLANCA Administration Arformoterol Tartrate 15 mcg 03/11/21 20:00 03/12/21 19:57 Arformoterol 15 Mcg/2 Ml Nebu IH 15 mcg Q12HRT BLANCA Administration Ascorbic Acid 500 mg 03/10/21 14:00 03/13/21 09:06 Ascorbic Acid 500 Mg Tab PO 500 mg BID BLANCA Administration Budesonide 0.25 mg 03/11/21 20:00 03/12/21 07:22 Budesonide 0.25 Mg/2 Ml Nebu IH Not Given Q12HRT BLANCA Dextrose 0 ml 03/09/21 01:26 Dextrose 50% In Water (25gm) 50 Ml Syringe IV Q30MIN PRN Hypoglycemia Protocol Enoxaparin Sodium 100 mg 03/09/21 10:00 03/13/21 09:05 Enoxaparin 100 Mg/1 Ml Inj SUB-Q 100 mg Q12HR BLANCA Administration Protocol Famotidine 20 mg 03/12/21 22:00 03/13/21 09:06 Famotidine 20 Mg Tab FEEDTUBE 20 mg BID BLANCA Administration Fentanyl 50 mcg 03/10/21 16:47 Fentanyl 100 Mcg/2 Ml Inj IV Q10MIN PRN ANALGESIA Furosemide 20 mg 03/13/21 12:17 03/13/21 13:05 Furosemide 20 Mg/2 Ml Inj IV 03/13/21 14:00 20 mg ONCE NR Administration Hydralazine HCl 10 mg 03/09/21 01:36 03/10/21 03:56 Hydralazine 20 Mg/1 Ml Inj IV 10 mg Q6H PRN Administration Blood Pressure Hydralazine HCl 50 mg 03/11/21 17:00 03/13/21 09:09 Hydralazine 25 Mg Tab PO Not Given Q8HR [facility] Hydromorphone HCl 0.5 mg 03/09/21 01:26 Hydromorphone 1 Mg/1 Ml Inj IV Q3H PRN Pain , Severe (7-10) Hydrophilic Ointment 1 applic 03/10/21 15:39 Lip Therapy Vaseline TP Q2HR PRN Dry Lips REMDESIVIR 100 mg/ Sodium 250 mls @ 500 mls/hr 03/10/21 21:00 03/12/21 21:49 Chloride IV 03/13/21 21:29 500 mls/hr Q24HR@2100 [facility] Administration Fentanyl Citrate 2,000 mcg in 100 mls @ 5.897 mls/hr 03/10/21 17:00 03/13/21 09:54 Fentanyl Drip Premix IV 3 mcg/kg/hr TITR BLANCA 17.69 mls/hr Administration Protocol 1 MCG/KG/HR Propofol 1,000 mg in 100 mls @ 3.507 mls/hr 03/11/21 17:00 03/13/21 09:56 Diprivan 10 Mg/Ml IV 35 mcg/kg/min TITR BLANCA 24.549 mls/hr Administration Protocol 5 MCG/KG/MIN Insulin Glargine 15 units 03/13/21 22:00 Insulin Glargine 100 Units/Ml SUB-Q BID [facility] Insulin Human Lispro 0 unit 03/11/21 18:00 03/13/21 11:46 Insulin Lispro 100 Unit/Ml SUB-Q 8 unit Q6HR BLANCA Administration Protocol Labetalol HCl 10 mg 03/12/21 21:13 Labetalol 20 Mg/4 Ml Inj IV Q6H PRN Blood Pressure Methylprednisolone Sodium Succinate 60 mg 03/10/21 22:00 03/13/21 13:05 Methylprednisolone Sod Succinate 125 Mg/2 Ml Inj IV 60 mg Q8HR BLANCA Administration Morphine Sulfate 2 mg 03/09/21 01:26 Morphine 2 Mg/1 Ml Inj IV Q4H PRN Pain, Moderate (4-6) Multi-Ingred Cream/Lotion/Oil/Oint 1 applic 03/10/21 15:39 Mineral Oil/Petrolatum, White Ophth Oint 3.5 Gm OU Q4HR PRN Dry Eye(s) Ondansetron HCl 4 mg 03/09/21 01:26 Ondansetron 4 Mg/2 Ml Inj IV Q8H PRN Nausea And Vomiting Senna/Docusate Sodium 1 tab 03/10/21 22:00 03/13/21 09:07 Sennosides/Docusate Sodium 8.6/50 Mg Tab FEEDTUBE 1 tab BID BLANCA Administration Sodium Chloride 10 ml 03/09/21 10:00 03/13/21 09:06 Sodium Chloride 0.9% 10 Ml Flush Syringe IV 10 ml BID BLANCA Administration Sodium Chloride 10 ml 03/09/21 01:26 Sodium Chloride 0.9% 10 Ml Flush Syringe IV PRN PRN LINE FLUSH Sodium Chloride 50 ml 03/09/21 21:00 03/12/21 21:50 Sodium Chloride 0.9% 50 Ml Ivpb IV 03/13/21 21:01 50 ml Q24HR@2100 BLANCA Administration Zinc Sulfate 220 mg 03/10/21 14:00 03/13/21 09:07 Zinc Sulfate 220 Mg Cap PO 220 mg BID BLANCA Administration Nutrition/Malnutrition Assess - Dietary Evaluation Nutrition/Malnutrition Findings: Nutrition Notes Start: 03/09/21 08:49 Freq: Status: Active Protocol: Document 03/11/21 09:59 BRIAN (Rec: 03/11/21 10:01 BRIAN [id number]) Nutrition Notes 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 Pt currently being followed by ANNETTE. Nutrition Intervention Follow-Up By: 03/13/21 Additional Comments F/U: new TF, vent status <RAFAEL DOMINGUEZ - Last Filed: 03/15/21 21:27> Assessment and Plan Assessment and plan: I saw and evaluated the patient. Discussed with the nurse practitioner and agree with their findings and plan as documented in this note. Hospitalist Physical - Constitutional Vitals: Temp Pulse Resp BP Pulse Ox 99.6 F 111 H 19 128/75 93 03/15/21 20:00 03/15/21 21:00 03/15/21 21:00 03/15/21 21:00 03/15/21 21:00 Results - Labs CBC & Chem 7: 03/15/21 15:06 03/15/21 15:07 Labs: Laboratory Last Values WBC 11.6 K/mm3 (4.5-11.0) H 03/14/21 05:50 RBC 4.53 M/mm3 (3.65-5.03) 03/14/21 05:50 Hgb 14.3 gm/dl (11.8-15.2) 03/15/21 15:06 Hct 44.6 % (35.5-45.6) 03/15/21 15:06 MCV 92 fl (84-94) 03/14/21 05:50 MCH 30 pg (28-32) 03/14/21 05:50 MCHC 32 % (32-34) 03/14/21 05:50 RDW 14.5 % (13.2-15.2) 03/14/21 05:50 Plt Count 332 K/mm3 (140-440) 03/14/21 05:50 Add Manual Diff Complete 03/10/21 04:29 Total Counted 100 03/10/21 04:29 Seg Neuts % (Manual) 94.0 % (40.0-70.0) H 03/10/21 04:29 Band Neutrophils % 0 % 03/10/21 04:29 Lymphocytes % (Manual) 1.0 % (13.4-35.0) L 03/10/21 04:29 Reactive Lymphs % (Man) 0 % 03/10/21 04:29 Monocytes % (Manual) 5.0 % (0.0-7.3) 03/10/21 04:29 Eosinophils % (Manual) 0 % (0.0-4.3) 03/10/21 04:29 Basophils % (Manual) 0 % (0.0-1.8) 03/10/21 04:29 Metamyelocytes % 0 % 03/10/21 04:29 Myelocytes % 0 % 03/10/21 04:29 Promyelocytes % 0 % 03/10/21 04:29 Blast Cells % 0 % 03/10/21 04:29 Nucleated RBC % 3.0 % (0.0-0.9) H 03/10/21 04:29 Seg Neutrophils # Man 19.4 K/mm3 (1.8-7.7) H 03/10/21 04:29 Band Neutrophils # 0.0 K/mm3 03/10/21 04: Lymphocytes # (Manual) 0.2 K/mm3 (1.2-5.4) L 03/10/21 04:29 Abs React Lymphs (Man) 0.0 K/mm3 03/10/21 04:29 Monocytes # (Manual) 1.0 K/mm3 (0.0-0.8) H 03/10/21 04:29 Eosinophils # (Manual) 0.0 K/mm3 (0.0-0.4) 03/10/21 04:29 Basophils # (Manual) 0.0 K/mm3 (0.0-0.1) 03/10/21 04:29 Metamyelocytes # 0.0 K/mm3 03/10/21 04:29 Myelocytes # 0.0 K/mm3 03/10/21 04:29 Promyelocytes # 0.0 K/mm3 03/10/21 04:29 Blast Cells # 0.0 K/mm3 03/10/21 04:29 WBC Morphology Not Reportable 03/10/21 04:29 Hypersegmented Neuts Not Reportable 03/10/21 04:29 Hyposegmented Neuts Not Reportable 03/10/21 04:29 Hypogranular Neuts Not Reportable 03/10/21 04:29 Smudge Cells Not Reportable 03/10/21 04:29 Toxic Granulation Not Reportable 03/10/21 04:29 Toxic Vacuolation Not Reportable 03/10/21 04:29 Dohle Bodies Not Reportable 03/10/21 04:29 Pelger-Huet Anomaly Not Reportable 03/10/21 04:29 Mely Rods Not Reportable 03/10/21 04:29 Platelet Estimate Consistent w auto 03/10/21 04:29 Clumped Platelets Not Reportable 03/10/21 04:29 Plt Clumps, EDTA Not Reportable 03/10/21 04:29 Large Platelets Not Reportable 03/10/21 04:29 Giant Platelets Not Reportable 03/10/21 04:29 Platelet Satelliting Not Reportable 03/10/21 04:29 Plt Morphology Comment Not Reportable 03/10/21 04:29 RBC Morphology Normal 03/10/21 04:29 Dimorphic RBCs Not Reportable 03/10/21 04:29 Polychromasia Not Reportable 03/10/21 04:29 Hypochromasia Not Reportable 03/10/21 04:29 Poikilocytosis Not Reportable 03/10/21 04:29 Anisocytosis Not Reportable 03/10/21 04:29 Microcytosis Not Reportable 03/10/21 04:29 Macrocytosis Not Reportable 03/10/21 04:29 Spherocytes Not Reportable 03/10/21 04:29 Pappenheimer Bodies Not Reportable 03/10/21 04:29 Sickle Cells Not Reportable 03/10/21 04:29 Target Cells Not Reportable 03/10/21 04:29 Tear Drop Cells Not Reportable 03/10/21 04:29 Ovalocytes Not Reportable 03/10/21 04:29 Helmet Cells Not Reportable 03/10/21 04:29 [place] Bodies Not Reportable 03/10/21 04:29 [place] Rings Not Reportable 03/10/21 04:29 [place]ama Cells Not Reportable 03/10/21 04:29 Bite Cells Not Reportable 03/10/21 04:29 Crenated Cell Not Reportable 03/10/21 04:29 Elliptocytes Not Reportable 03/10/21 04:29 Acanthocytes (Spur) Not Reportable 03/10/21 04:29 Rouleaux Not Reportable 03/10/21 04:29 Hemoglobin C Crystals Not Reportable 03/10/21 04:29 Schistocytes Not Reportable 03/10/21 04:29 Malaria parasites Not Reportable 03/10/21 04:29 Shaheen Bodies Not Reportable 03/10/21 04:29 Hem Pathologist Commnt No 03/10/21 04:29 PT 16.1 Sec. (12.2-14.9) H 03/08/21 20:24 INR 1.17 (0.87-1.13) H 03/08/21 20:24 APTT 28.0 Sec. (24.2-36.6) 03/08/21 20:24 D-Dimer 1781.79 ng/mlDDU (0-234) H 03/15/21 06:06 ABG pH 7.410 pH Units (7.350-7.450) 03/15/21 14:05 POC ABG pCO2 71.9 mmHg (32.0-48.0) H 03/12/21 21:54 ABG pCO2 59.1 mm Hg 03/15/21 14:05 POC ABG pO2 53.6 mmHg (83-108) L 03/12/21 21:54 ABG pO2 52.1 mm Hg (80.0-90.0) L 03/15/21 14:05 POC ABG HCO3 30.0 03/12/21 21:54 ABG HCO3 36.6 mmol/L (20.0-26.0) H 03/15/21 14:05 ABG O2 Saturation 87.6 % (95.0-99.0) L 03/15/21 14:05 ABG O2 Content 18.3 (0.0-44) 03/15/21 14:05 POC ABG Base Excess 0.5 03/12/21 21:54 ABG Base Excess 9.5 mmol/L (-2.0-3.0) H 03/15/21 14:05 ABG Hemoglobin 15.2 gm/dl (14.0-18.0) 03/15/21 14:05 ABG Oxyhemoglobin 84.8 (94-98) L 03/12/21 21:54 ABG Carboxyhemoglobin 1.4 % (0.0-5.0) 03/15/21 14:05 ABG Methemoglobin 0.8 % (0.0-1.5) 03/15/21 14:05 ABG Sodium 134.2 mmol/L (136.0-145.0) L 03/12/21 21:54 ABG Potassium 4.9 mmol/L (3.40-4.50) H 03/12/21 21:54 ABG Chloride 99.0 mmol/L (98-107) 03/12/21 21:54 ABG Glucose 306 mg/dL (65-95) H 03/12/21 21:54 Oxyhemoglobin 85.7 % (95.0-99.0) L 03/15/21 14:05 Carboxyhemoglobin 0.6 (0.5-1.5) 03/12/21 21:54 FiO2 40 % 03/15/21 14:05 FiO2 % 50.0 03/12/21 21:54 Sodium 148 mmol/L (137-145) H 03/15/21 06:06 Potassium 4.9 mmol/L (3.6-5.0) 03/15/21 15:07 Chloride 108.0 mmol/L (98-107) H 03/15/21 06:06 Carbon Dioxide 31 mmol/L (22-30) H 03/15/21 06:06 Anion Gap 15 mmol/L 03/15/21 06:06 BUN 46 mg/dL (9-20) H 03/15/21 06:06 Creatinine 1.0 mg/dL (0.8-1.3) 03/15/21 06:06 Estimated GFR > 60 ml/min 03/15/21 06:06 BUN/Creatinine Ratio 46 % 03/15/21 06:06 Glucose 139 mg/dL (75-100) H 03/15/21 06:06 POC Glucose 263 mg/dL (70-105) H 03/15/21 17:09 Lactic Acid 1.90 mmol/L (0.7-2.0) 03/08/21 23:51 Calcium 8.9 mg/dL (8.4-10.2) 03/15/21 06:06 Phosphorus 4.80 mg/dL (2.5-4.5) H D 03/15/21 06:06 Magnesium 3.00 mg/dL (1.7-2.3) H 03/15/21 06:06 Ferritin 976.4 ng/mL (30.0-300.0) H 03/15/21 04:00 Total Bilirubin 0.20 mg/dL (0.1-1.2) 03/12/21 08:03 AST 10 units/L (5-40) 03/12/21 08:03 ALT 16 units/L (7-56) 03/12/21 08:03 Alkaline Phosphatase 77 units/L (35-129) 03/12/21 08:03 Lactate Dehydrogenase 630 units/L (91-180) H 03/15/21 06:06 C-Reactive Protein 0.80 mg/dL (0.00-1.30) 03/15/21 06:06 NT-Pro-B Natriuret Pep 1053 pg/mL (0-900) H 03/08/21 20:24 Total Protein 6.0 g/dL (6.3-8.2) L 03/12/21 08:03 Albumin 2.9 g/dL (3.9-5) L 03/12/21 08:03 Albumin/Globulin Ratio 0.9 % 03/12/21 08:03 Procalcitonin 0.14 ng/mL (<0.15) 03/10/21 09:47 Arterial Blood Glucose 306 mg/dL (65-95) H 03/12/21 21:54 Arterial Blood Ionized Calcium 5.0 mg/dL (4.6-5.3) 03/12/21 21:54 Urine Color Yellow (Yellow) 03/09/21 04:10 Urine Turbidity Slightly-cloudy (Clear) 03/09/21 04:10 Urine pH 5.0 (5.0-7.0) 03/09/21 04:10 Ur Specific [place] 1.041 (1.003-1.030) H 03/09/21 04:10 Urine Protein 100 mg/dl mg/dL (Negative) 03/09/21 04:10 Urine Glucose (UA) Neg mg/dL (Negative) 03/09/21 04:10 Urine Ketones Neg mg/dL (Negative) 03/09/21 04:10 Urine Blood Mod (Negative) 03/09/21 04:10 Urine Nitrite Neg (Negative) 03/09/21 04:10 Urine Bilirubin Neg (Negative) 03/09/21 04:10 Urine Urobilinogen 2.0 mg/dL (<2.0) 03/09/21 04:10 Ur Leukocyte Esterase Neg (Negative) 03/09/21 04:10 Urine WBC (Auto) 4.0 /HPF (0.0-6.0) 03/09/21 04:10 Urine RBC (Auto) 1.0 /HPF (0.0-6.0) 03/09/21 04:10 Urine Bacteria (Auto) 1+ /HPF (Negative) 03/09/21 04:10 Urine Mucus Few /HPF 03/09/21 04:10 Coronavirus (PCR) Positive (Negative) A 03/09/21 08:00 Good/IV: Voiding Method Indwelling Catheter Active Medications - Current Medications Current Medications: Generic Name Dose Route Start Last Admin Trade Name Freq PRN Reason Stop Dose Admin Acetaminophen 650 mg 03/09/21 01:26 03/14/21 17:24 Acetaminophen 325 Mg Tab PO 650 mg Q4H PRN Administration Pain MILD(1-3)/Fever >100.5/RAYO Albuterol 2.5 mg 03/09/21 01:26 Albuterol 2.5 Mg/3 Ml Nebu IH Q4HRT PRN Shortness Of Breath Albuterol/Ipratropium 1 ampul 03/11/21 08:00 03/15/21 19:49 Ipratropium/Albuterol Sulfate 3 Ml Ampul.Neb IH 1 ampul TIDRT BLANCA Administration Arformoterol Tartrate 15 mcg 03/11/21 20:00 03/15/21 19:49 Arformoterol 15 Mcg/2 Ml Nebu IH 15 mcg Q12HRT BLANCA Administration Ascorbic Acid 500 mg 03/10/21 14:00 03/15/21 09:02 Ascorbic Acid 500 Mg Tab PO 500 mg BID BLANCA Administration Budesonide 0.25 mg 03/11/21 20:00 03/15/21 19:49 Budesonide 0.25 Mg/2 Ml Nebu IH 0.25 mg Q12HRT BLANCA Administration Dextrose 0 ml 03/09/21 01:26 Dextrose 50% In Water (25gm) 50 Ml Syringe IV Q30MIN PRN Hypoglycemia Protocol Enoxaparin Sodium 100 mg 03/09/21 10:00 03/15/21 09:02 Enoxaparin 100 Mg/1 Ml Inj SUB-Q 100 mg Q12HR BLANCA Administration Protocol Famotidine 20 mg 03/12/21 22:00 03/15/21 09:02 Famotidine 20 Mg Tab FEEDTUBE 20 mg BID BLANCA Administration Fentanyl 50 mcg 03/10/21 16:47 Fentanyl 100 Mcg/2 Ml Inj IV Q10MIN PRN ANALGESIA Hydralazine HCl 10 mg 03/09/21 01:36 03/10/21 03:56 Hydralazine 20 Mg/1 Ml Inj IV 10 mg Q6H PRN Administration Blood Pressure Hydralazine HCl 50 mg 03/11/21 17:00 03/15/21 14:00 Hydralazine 25 Mg Tab PO Not Given Q8HR BLANCA Hydrophilic Ointment 1 applic 03/10/21 15:39 Lip Therapy Vaseline TP Q2HR PRN Dry Lips Fentanyl Citrate 2,000 mcg in 100 mls @ 5.897 mls/hr 03/10/21 17:00 03/15/21 18:15 Fentanyl Drip Premix IV 4 mcg/kg/hr TITR BLANCA 23.587 mls/hr Administration Protocol 1 MCG/KG/HR Propofol 1,000 mg in 100 mls @ 3.507 mls/hr 03/11/21 17:00 03/15/21 14:50 Diprivan 10 Mg/Ml IV 35 mcg/kg/min TITR BLANCA 24.549 mls/hr Administration Protocol 5 MCG/KG/MIN Insulin Glargine 25 units 03/14/21 10:00 03/15/21 09:03 Insulin Glargine 100 Units/Ml SUB-Q 25 units BID BLANCA Administration Insulin Human Lispro 0 unit 03/11/21 18:00 03/15/21 18:14 Insulin Lispro 100 Unit/Ml SUB-Q 6 unit Q6HR [facility] Administration Protocol Insulin Human Regular 5 units 03/14/21 12:00 03/15/21 18:14 Insulin Regular, Human 100 Units/1 Ml SUB-Q 5 units Q6HR [facility] Administration Labetalol HCl 10 mg 03/12/21 21:13 Labetalol 20 Mg/4 Ml Inj IV Q6H PRN Blood Pressure Methylprednisolone Sodium Succinate 60 mg 03/10/21 22:00 03/15/21 13:03 Methylprednisolone Sod Succinate 125 Mg/2 Ml Inj IV 60 mg Q8HR BLANCA Administration Midazolam HCl 2 mg 03/15/21 08:49 03/15/21 17:56 Midazolam 2 Mg/2 Ml Inj IV 2 mg Q2H PRN Administration VENT SYNCHRONY Multi-Ingred Cream/Lotion/Oil/Oint 1 applic 03/10/21 15:39 Mineral Oil/Petrolatum, White Ophth Oint 3.5 Gm OU Q4HR PRN Dry Eye(s) Ondansetron HCl 4 mg 03/09/21 01:26 Ondansetron 4 Mg/2 Ml Inj IV Q8H PRN Nausea And Vomiting Senna/Docusate Sodium 1 tab 03/10/21 22:00 03/15/21 13:04 Sennosides/Docusate Sodium 8.6/50 Mg Tab FEEDTUBE Not Given BID BLANCA Sodium Chloride 10 ml 03/09/21 10:00 03/15/21 10:04 Sodium Chloride 0.9% 10 Ml Flush Syringe IV 10 ml BID BLANCA Administration Sodium Chloride 10 ml 03/09/21 01:26 Sodium Chloride 0.9% 10 Ml Flush Syringe IV PRN PRN LINE FLUSH Zinc Sulfate 220 mg 03/10/21 14:00 03/15/21 09:02 Zinc Sulfate 220 Mg Cap PO 220 mg BID BLANCA Administration Nutrition/Malnutrition Assess - Dietary Evaluation Nutrition/Malnutrition Findings: Nutrition Notes Start: 03/09/21 08:49 Freq: Status: Active Protocol: Document 03/14/21 10:48 BRYANNA (Rec: 03/14/21 11:07 BRYANNA [id number]) Nutrition Notes Initial or Follow up Brief Note Current Diet TF-Glucerna 1.2 Tyson @ 66 ml/hr (since L 03/14). Height 5 ft 11 in Weight 117 kg [place] Body Weight (kg) 78.18 BMI 35.9 Weight change and time frame No body weight change reported . Weight Status Obese Subjective/Other Information RD consult for TF change requested by RN. RN states that Pt's bG has been high and request a change to Glucerna, since no kidney complications are present. Percent of energy/protein needs met: Prescribed Glucerna 1.2 Tyson @ 66 ml/hr provides for energy/ protein needs (1911 Kcal/96 g) during LOS, 100% Kcal; 75% AA . #1 Nutrition Diagnosis Inadequate oral intake Comments: RN states that Pt's bG has been high and request a change to Glucerna, since no kidney complications are present. Diagnosis Progress(for reassessment Continues documentation) Is patient on ventilator? Yes Is Patient Ambulatory and/or Out of Bed No REE-([facility]-confined to bed) [phone] Calculation Used for Recommendations 70-80% energy needs Additional Notes Energy needs: 2675-3591 kcal/ day Pro needs 1.3g/kg adjBW: 127g/ day Fluid needs 1ml/kcal Nutrition Intervention Nutrition Support: Change to Glucerna 1.2 Tyson @66 ml/hr. Flush: 100 ml water Q 4 hr, or as per MD. Kcal 1,911 Protein (gm) 96 Carbohydrates (gm) 182 Fat (gm) 96 Fluid (mL) 1,282 Fiber (gm) 26 % RDI: 100% Kcal; 75% AA. Goal #1 Provide at least 75% of energy /protein needs through Enteral Feeding during LOS. Follow-Up By: 03/17/21 Additional Comments Continue monitoring TF tolerance and BM.
[2021-03-13] MEDS: ACETAMINOPHEN 325 MG TAB PO PRN (13:32)
--- NOTE | 2021-03-13 15:43 | Progress Note ---
Assessment and Plan Cultures: SARS CoV2 PCR: positive 03/08/2021 blood culture: no growth 03/10/2021 sputum culture: Usual respiratory marlyn A/P: 61-year-old male with diabetes, hypertension admitted to the hospital with complaints of shortness of breath and feeling weak for the last 1 week: #Sepsis secondary to bilateral pneumonia: secondary to COVID-19. Elevated inflammatory markers. WBC 22.6, creatinine 1.3, ferritin 877, CRP 18.0, LDH 624, procalcitonin 0.18. D-dimer >10k. CTA negative for pulmonary embolism, severe patchy groundglass opacities. #Acute hypoxic respiratory failure: initially required BiPAP, now intubated, on the vent. #DM #HTN Recs: -steroids per pulm, on solumedrol -continue IV remdesivir x 5 days -s/p Actemra 03/10/2021 -prophylactic anticoagulation based on d-dimer per hospital protocol -trend d-dimer, CRP every 2-3 days -poor prognosis Sangita Nicole MD, FACP, [facility] O: [phone] F: [phone] Subjective Date of service: 03/13/21 Principal diagnosis: AHRF; COVID-19 infection; DM II; Bilateral pneumonia; Ob esity; HTN Interval history: No fever, low grade temps +. Remains on the vent. Objective - Exam Narrative Exam: Physical Exam (reviewed in chart to minimize risk of transmission) Constitutional: deferred Head, Ears, Nose: deferred Eyes: deferred Neck: deferred Oral: deferred Cardiovascular: deferred Respiratory: deferred GI: deferred Musculoskeletal: deferred Skin: deferred Hem/Lymphatic: deferred Psych: deferred Neurological: deferred - Constitutional Vitals: Vital Signs Temp Pulse Resp BP Pulse Ox 99.7 F H 101 H 22 130/69 97 03/13/21 12:00 03/13/21 12:10 03/13/21 12:00 03/13/21 12:10 03/13/21 12:10 Temperature -Last 24 Hours Temperature 99.7 F Temperature 99.9 F Temperature 99.3 F Temperature 99.2 F Temperature 98.3 F - Labs CBC & Chem 7: 03/13/21 05:44 03/12/21 08:03 Labs: Abnormal lab results 03/12/21 03/12/21 03/13/21 Range/Units 17:20 21:54 00:02 WBC (4.5-11.0) K/mm3 D-Dimer (0-234) ng/mlDDU ABG pH 7.238 L (7.320-7.450) POC ABG pCO2 71.9 H (32.0-48.0) mmHg POC ABG pO2 53.6 L (83-108) mmHg ABG pO2 (80.0-90.0) mm Hg ABG HCO3 (20.0-26.0) mmol/L ABG O2 Saturation (95.0-99.0) % ABG Base Excess (-2.0-3.0) mmol/L ABG Hemoglobin (14.0-18.0) gm/dl ABG Oxyhemoglobin 84.8 L (94-98) ABG Sodium 134.2 L (136.0-145.0) mmol/L ABG Potassium 4.9 H (3.40-4.50) mmol/L ABG Glucose 306 H (65-95) mg/dL Oxyhemoglobin (95.0-99.0) % POC Glucose 374 H 308 H (70-105) mg/dL Ferritin (30.0-300.0) ng/mL Lactate Dehydrogenase (91-180) units/L C-Reactive Protein (0.00-1.30) mg/dL Arterial Blood Glucose 306 H (65-95) mg/dL 03/13/21 03/13/21 03/13/21 Range/Units 05:22 05:44 05:44 WBC 13.9 H (4.5-11.0) K/mm3 D-Dimer 3567.97 H (0-234) ng/mlDDU ABG pH (7.320-7.450) POC ABG pCO2 (32.0-48.0) mmHg POC ABG pO2 (83-108) mmHg ABG pO2 (80.0-90.0) mm Hg ABG HCO3 (20.0-26.0) mmol/L ABG O2 Saturation (95.0-99.0) % ABG Base Excess (-2.0-3.0) mmol/L ABG Hemoglobin (14.0-18.0) gm/dl ABG Oxyhemoglobin (94-98) ABG Sodium (136.0-145.0) mmol/L ABG Potassium (3.40-4.50) mmol/L ABG Glucose (65-95) mg/dL Oxyhemoglobin (95.0-99.0) % POC Glucose 316 H (70-105) mg/dL Ferritin (30.0-300.0) ng/mL Lactate Dehydrogenase (91-180) units/L C-Reactive Protein (0.00-1.30) mg/dL Arterial Blood Glucose (65-95) mg/dL 03/13/21 03/13/21 03/13/21 Range/Units 05:44 05:44 11:15 WBC (4.5-11.0) K/mm3 D-Dimer (0-234) ng/mlDDU ABG pH 7.310 L (7.320-7.450) POC ABG pCO2 (32.0-48.0) mmHg POC ABG pO2 (83-108) mmHg ABG pO2 52.3 L (80.0-90.0) mm Hg ABG HCO3 34.1 H (20.0-26.0) mmol/L ABG O2 Saturation 86.8 L (95.0-99.0) % ABG Base Excess 5.5 H (-2.0-3.0) mmol/L ABG Hemoglobin 13.8 L (14.0-18.0) gm/dl ABG Oxyhemoglobin (94-98) ABG Sodium (136.0-145.0) mmol/L ABG Potassium (3.40-4.50) mmol/L ABG Glucose (65-95) mg/dL Oxyhemoglobin 85.1 L (95.0-99.0) % POC Glucose (70-105) mg/dL Ferritin 858.7 H (30.0-300.0) ng/mL Lactate Dehydrogenase 348 H (91-180) units/L C-Reactive Protein 2.80 H (0.00-1.30) mg/dL Arterial Blood Glucose (65-95) mg/dL 03/13/21 Range/Units 11:21 WBC (4.5-11.0) K/mm3 D-Dimer (0-234) ng/mlDDU ABG pH (7.320-7.450) POC ABG pCO2 (32.0-48.0) mmHg POC ABG pO2 (83-108) mmHg ABG pO2 (80.0-90.0) mm Hg ABG HCO3 (20.0-26.0) mmol/L ABG O2 Saturation (95.0-99.0) % ABG Base Excess (-2.0-3.0) mmol/L ABG Hemoglobin (14.0-18.0) gm/dl ABG Oxyhemoglobin (94-98) ABG Sodium (136.0-145.0) mmol/L ABG Potassium (3.40-4.50) mmol/L ABG Glucose (65-95) mg/dL Oxyhemoglobin (95.0-99.0) % POC Glucose 322 H (70-105) mg/dL Ferritin (30.0-300.0) ng/mL Lactate Dehydrogenase (91-180) units/L C-Reactive Protein (0.00-1.30) mg/dL Arterial Blood Glucose (65-95) mg/dL
[2021-03-13 19:51] LABS: BUN/Creatinine Ratio 42; Blood Urea Nitrogen 50 mg/dL (9-20); Calcium 8.7 mg/dL (8.4-10.2); Hemolysis Index 14
[2021-03-13] MEDS: SODIUM CHLORIDE 0.9% 50 ML IVPB IV SCH (21:57)
[2021-03-13] MEDS: REMDESIVIR 100 MG in SODIUM CHLORIDE 0.9% 250ML 250 ML IV SCH (21:57)
[2021-03-14] MEDS: INSULIN LISPRO 100 UNIT/ML SUB-Q SCH ×4 (00:08→17:25)
[2021-03-14] MEDS: fentaNYL DRIP Premix 2,000 MCG/100 ML BAG IV SCH ×4 (02:32→20:13)
[2021-03-14] MEDS: ARFORMOTEROL 15 MCG/2 ML NEBU IH SCH ×4 (03:45→19:38)
[2021-03-14] MEDS: IPRATROPIUM/ALBUTEROL SULFATE 3 ML AMPUL.NEB IH SCH ×6 (03:45→19:39)
[2021-03-14] MEDS: BUDESONIDE 0.25 MG/2 ML NEBU IH SCH ×5 (03:45→19:58)
[2021-03-14] MEDS: methylPREDNISolone Sod Succinate 125 MG/2 ML INJ IV SCH ×3 (06:22→21:10)
[2021-03-14] MEDS: hydrALAZINE 25 MG TAB PO SCH ×3 (06:26→21:08)
[2021-03-14 06:43] LABS: BUN/Creatinine Ratio 48; Blood Urea Nitrogen 48 mg/dL (9-20); Calcium 8.7 mg/dL (8.4-10.2); Hemolysis Index 10
[2021-03-14 06:48] LABS: Hematocrit 41.9 % (35.5-45.6); Hemoglobin 13.4 gm/dl (11.8-15.2); Mean Corpuscular HGB Conc 32 % (32-34); Mean Corpuscular Volume 92 fl (84-94); Platelet Count 332 K/mm3 (140-440); Red Blood Count 4.53 M/mm3 (3.65-5.03); Red Cell Distribution Width 14.5 % (13.2-15.2)
[2021-03-14] MEDS ORDERED: SODIUM POLYSTYRENE 15 GM/60 ML ORAL LIQD PO SCH (08:30)
[2021-03-14] MEDS: ENOXAPARIN 100 MG/1 ML INJ SUB-Q SCH ×2 (09:50→21:09)
[2021-03-14] MEDS: INSULIN GLARGINE 100 UNITS/ML SUB-Q SCH ×2 (09:50→21:09)
[2021-03-14] MEDS: FAMOTIDINE 20 MG TAB FEEDTUBE SCH ×2 (09:50→21:09)
[2021-03-14] MEDS: SENNOSIDES/DOCUSATE SODIUM 8.6/50 MG TAB FEEDTUBE SCH ×2 (09:50→21:10)
[2021-03-14] MEDS: ASCORBIC ACID 500 MG TAB PO SCH ×2 (09:50→21:10)
[2021-03-14] MEDS: ZINC SULFATE 220 MG CAP PO SCH ×2 (09:50→21:10)
[2021-03-14] MEDS ORDERED: FUROSEMIDE 40 MG/4 ML INJ IV SCH (11:00)
[2021-03-14] MEDS: INSULIN REGULAR, HUMAN 100 UNITS/1 ML SUB-Q SCH ×2 (11:34→17:25)
--- NOTE | 2021-03-14 11:42 | Progress Note ---
<DEBBY ELLISON - Last Filed: 03/14/21 21:47> Assessment and Plan Assessment and plan: This is a 61-year-old male with past medical history of HTN and DM admitted for sepsis and acute hypoxic respiratory failure 2/2 COVID pneumonia requiring ventilatory support. Hospital Course to Date: 03/09: The patient was seen and evaluated today, and he was found to be hemodynamically stable. The patient is currently on BiPAP for possible COVID-19 pneumonia. He was started on Lovenox 1mg/kg for DVT ppx in the setting of d- dimer > 10,000. Infectious Disease was consulted. The patient is pending a TTE. 03/10: No acute events overnight, patient was intubated in the afternoon transferred to ICU 03/11: Patient started on Lantus, free water flushes increased, propofol drip resumed and oral antihypertensive added. 03/12: lantus increased, k at 5, will monitor. I updated his family and his stated that he is not vaccinated. He does have HTN and she will call the RN to update home medications. She did say he takes bystolic and amlopine. She inquired about ventilator and lab work. She had no further questions. 03/13: KVNG overnight. Patient remains hyperglycemic, basal insulin adjusted and increased to Q12hrs. Patient is overall net positive since admit X1 dose of IV lasix, repeat BMP this afternoon. 03/14: Failed SAT this am due to increase agitation, tachycardia and hypertension. Remains on propofol and fentanyl gtt. Hyperkalemia treated with PO kayaxalate. Patient responded to IV lasix yesterday additional dose again today for a net negative balance. Repeat BMP this afternoon. Insulin adjusted for hyperglycemia. Assessment and Plan #Neuro: Sedated - Intubated and sedated on propofol and fentanyl, RASS -2 - Titrate sedation for RASS goal of 0 to -1 - Failed SAT this am - Avoid benzodiazepine to reduce the possibility of delirium - Prn analgesia for CPOT greater than 3 - Maintenance of sleep-wake cycle #CV: Hypertension - BP stable this am - 03/09 Echocardiogram shows a mildly dilated ascending aorta, normal LV systolic function, mild concentric LVH, LVEF 60 to 65% - Continue PO Hydralazine - PRN Antihypertensive for SBP above 160 - Continue Blood pressure monitoring per protocol #Acute Hypoxic Respiratory Failure #COVID Pneumonia - Intubated on 03/10 due to worsen hypoxia on BIPAP - COVID swab positive - CXR showed bilateral patchy infiltrates - CT chest shows severe patchy multifocal groundglass airspace disease - Vent setting:PRVC-50%,8,25,450 - AM ABG pending - CCM consulted, appreciate recommendations - Continue IV Steroids and Nebs per [facility] - Additional IV lasix today, plan to keep patient net negative for better lung compliance - VAP bundle addressed - Aspiration precaution HOB above 30 - Daily SBT and SAT trials as tolerated - Daily ABG and CXR - Continue SPO2 monitoring for SPO2 goal above 92% #GI:TF - Continue enteral nutrition - Nutrition consulted - Continue PPI and BR #Hyperkalemia - X1 dose of Kayaxalated today - Repeat BMp ordered - Strict intake and output - Avoid nephrotoxic medications; Renally dose medications - Good in place - Monitor and replace electrolytes as needed -Trend BMP #Elevated D-dimer - Most likely due to COVID - Bilateral lower extremity ultrasounds negative for DVT, superficial thrombus in left gastrocnemius vein - CTA chest shows no gross pulm embolism - H&H stable - Continue AC- Lovenox SubQ - SCDs to BLE while in bed - Transfuse hemoglobin less than 7 - Monitor for signs of bleeding #Sepsis #COVID Pneumonia #Leukocytosis #Lactic Acidosis- Resolved - COVID PCR positive - UA neg, Blood cultures and Sputum culture NGTD - Infectious disease consulted, appreciate recommendation - S/p Actemra 03/10/2021 - Continue IV remdesivir for 5 days - Dexamethasone x10 days - Prophylactic anticoagulation per hospital protocol - Patient remains afebrile, WBCs downstrending - Monitor WBC and temperature curve - Trend CBC #Endo:Hyperglycemia #h/o DM - Patient on IV steroids - Continue high dose SSI Q6hrs - Additional Short acting insulin Q6hrs - Basal insulin increased to BID The high probability of a clinically significant, sudden or life threatening deterioration of the [multi] system(s) required my full and direct attention, intervention and personal management. The aggregate critical care time was [60] minutes. This time is in addition to time spent performing reported procedures but includes the following: [x] Data Review and interpretation [x] Patient assessment and monitoring of vital signs [x] Documentation [x] Medication orders and management Disposition Plan: ICU Total Time Spent with Patient (Minutes): 60 History Interval history: Patient seen and examined at the bedside. Intubated and sedated RASS -2. Patient failed SAT this am, per RN when sedation was weaned down, patient became tachycardic, hypertensive, with increased agitation. Sedation was increased Hospitalist Physical - Constitutional Vitals: Temp Pulse Resp BP Pulse Ox 99.5 F 106 H 11 L 122/67 98 03/14/21 08:00 03/14/21 11:00 03/14/21 11:00 03/14/21 11:00 03/14/21 11:00 General appearance: Present: no acute distress, well-nourished, obese, other (Intubated and sedated) - EENT Eyes: Present: PERRL - Respiratory Respiratory effort: normal Respiratory: bilateral: diminished - Cardiovascular Rhythm: regular Heart Sounds: Present: S1 & S2 - Extremities Extremities: no ischemia, pulses intact, pulses symmetrical Extremity abnormal: edema - Peripheral Assessment Generalized Edema Type: Non-pitting Edema Degree: 1+ Capillary Refill: < 3 seconds Skin Temperature: Warm Peripheral Pulses: within normal limits - Abdominal General gastrointestinal: soft, non-distended, normal bowel sounds - Integumentary Integumentary: Present: warm, dry - Psychiatric Psychiatric: other (Intubated and sedated) - Neurologic Neurologic: other (Intubated and sedated) - Allied Health Allied health notes reviewed: nursing Results - Labs CBC & Chem 7: 03/14/21 18:34 03/14/21 18:34 Labs: Laboratory Last Values WBC 11.6 K/mm3 (4.5-11.0) H 03/14/21 05:50 RBC 4.53 M/mm3 (3.65-5.03) 03/14/21 05:50 Hgb 13.4 gm/dl (11.8-15.2) 03/14/21 05:50 Hct 41.9 % (35.5-45.6) 03/14/21 05:50 MCV 92 fl (84-94) 03/14/21 05:50 MCH 30 pg (28-32) 03/14/21 05:50 MCHC 32 % (32-34) 03/14/21 05:50 RDW 14.5 % (13.2-15.2) 03/14/21 05:50 Plt Count 332 K/mm3 (140-440) 03/14/21 05:50 Add Manual Diff Complete 03/10/21 04:29 Total Counted 100 03/10/21 04:29 Seg Neuts % (Manual) 94.0 % (40.0-70.0) H 03/10/21 04:29 Band Neutrophils % 0 % 03/10/21 04:29 Lymphocytes % (Manual) 1.0 % (13.4-35.0) L 03/10/21 04:29 Reactive Lymphs % (Man) 0 % 03/10/21 04:29 Monocytes % (Manual) 5.0 % (0.0-7.3) 03/10/21 04:29 Eosinophils % (Manual) 0 % (0.0-4.3) 03/10/21 04:29 Basophils % (Manual) 0 % (0.0-1.8) 03/10/21 04:29 Metamyelocytes % 0 % 03/10/21 04:29 Myelocytes % 0 % 03/10/21 04:29 Promyelocytes % 0 % 03/10/21 04:29 Blast Cells % 0 % 03/10/21 04:29 Nucleated RBC % 3.0 % (0.0-0.9) H 03/10/21 04:29 Seg Neutrophils # Man 19.4 K/mm3 (1.8-7.7) H 03/10/21 04:29 Band Neutrophils # 0.0 K/mm3 03/10/21 04:29 Lymphocytes # (Manual) 0.2 K/mm3 (1.2-5.4) L 03/10/21 04:29 Abs React Lymphs (Man) 0.0 K/mm3 03/10/21 04:29 Monocytes # (Manual) 1.0 K/mm3 (0.0-0.8) H 03/10/21 04:29 Eosinophils # (Manual) 0.0 K/mm3 (0.0-0.4) 03/10/21 04:29 Basophils # (Manual) 0.0 K/mm3 (0.0-0.1) 03/10/21 04:29 Metamyelocytes # 0.0 K/mm3 03/10/21 04:29 Myelocytes # 0.0 K/mm3 03/10/21 04:29 Promyelocytes # 0.0 K/mm3 03/10/21 04:29 Blast Cells # 0.0 K/mm3 03/10/21 04:29 WBC Morphology Not Reportable 03/10/21 04:29 Hypersegmented Neuts Not Reportable 03/10/21 04:29 Hyposegmented Neuts Not Reportable 03/10/21 04:29 Hypogranular Neuts Not Reportable 03/10/21 04:29 Smudge Cells Not Reportable 03/10/21 04:29 Toxic Granulation Not Reportable 03/10/21 04:29 Toxic Vacuolation Not Reportable 03/10/21 04:29 Dohle Bodies Not Reportable 03/10/21 04:29 Pelger-Huet Anomaly Not Reportable 03/10/21 04:29 Mely Rods Not Reportable 03/10/21 04:29 Platelet Estimate Consistent w auto 03/10/21 04:29 Clumped Platelets Not Reportable 03/10/21 04:29 Plt Clumps, EDTA Not Reportable 03/10/21 04:29 Large Platelets Not Reportable 03/10/21 04:29 Giant Platelets Not Reportable 03/10/21 04:29 Platelet Satelliting Not Reportable 03/10/21 04:29 Plt Morphology Comment Not Reportable 03/10/21 04:29 RBC Morphology Normal 03/10/21 04:29 Dimorphic RBCs Not Reportable 03/10/21 04:29 Polychromasia Not Reportable 03/10/21 04:29 Hypochromasia Not Reportable 03/10/21 04:29 Poikilocytosis Not Reportable 03/10/21 04:29 Anisocytosis Not Reportable 03/10/21 04:29 Microcytosis Not Reportable 03/10/21 04:29 Macrocytosis Not Reportable 03/10/21 04:29 Spherocytes Not Reportable 03/10/21 04:29 Pappenheimer Bodies Not Reportable 03/10/21 04:29 Sickle Cells Not Reportable 03/10/21 04:29 Target Cells Not Reportable 03/10/21 04:29 Tear Drop Cells Not Reportable 03/10/21 04:29 Ovalocytes Not Reportable 03/10/21 04:29 Helmet Cells Not Reportable 03/10/21 04:29 [place]-Carter Bodies Not Reportable 03/10/21 04:29 [place] Rings Not Reportable 03/10/21 04:29 [place] Cells Not Reportable 03/10/21 04:29 Bite Cells Not Reportable 03/10/21 04:29 Crenated Cell Not Reportable 03/10/21 04:29 Elliptocytes Not Reportable 03/10/21 04:29 Acanthocytes (Spur) Not Reportable 03/10/21 04:29 Rouleaux Not Reportable 03/10/21 04:29 Hemoglobin C Crystals Not Reportable 03/10/21 04:29 Schistocytes Not Reportable 03/10/21 04:29 Malaria parasites Not Reportable 03/10/21 04:29 Shaheen Bodies Not Reportable 03/10/21 04:29 Hem Pathologist Commnt No 03/10/21 04:29 PT 16.1 Sec. (12.2-14.9) H 03/08/21 20:24 INR 1.17 (0.87-1.13) H 03/08/21 20:24 APTT 28.0 Sec. (24.2-36.6) 03/08/21 20:24 D-Dimer 3567.97 ng/mlDDU (0-234) H 03/13/21 05:44 ABG pH 7.310 pH Units (7.350-7.450) L 03/13/21 11:15 POC ABG pCO2 71.9 mmHg (32.0-48.0) H 03/12/21 21:54 ABG pCO2 69.2 mm Hg 03/13/21 11:15 POC ABG pO2 53.6 mmHg (83-108) L 03/12/21 21:54 ABG pO2 52.3 mm Hg (80.0-90.0) L 03/13/21 11:15 POC ABG HCO3 30.0 03/12/21 21:54 ABG HCO3 34.1 mmol/L (20.0-26.0) H 03/13/21 11:15 ABG O2 Saturation 86.8 % (95.0-99.0) L 03/13/21 11:15 ABG O2 Content 16.5 (0.0-44) 03/13/21 11:15 POC ABG Base Excess 0.5 03/12/21 21:54 ABG Base Excess 5.5 mmol/L (-2.0-3.0) H 03/13/21 11:15 ABG Hemoglobin 13.8 gm/dl (14.0-18.0) L 03/13/21 11:15 ABG Oxyhemoglobin 84.8 (94-98) L 03/12/21 21:54 ABG Carboxyhemoglobin 1.2 % (0.0-5.0) 03/13/21 11:15 ABG Methemoglobin 0.8 % (0.0-1.5) 03/13/21 11:15 ABG Sodium 134.2 mmol/L (136.0-145.0) L 03/12/21 21:54 ABG Potassium 4.9 mmol/L (3.40-4.50) H 03/12/21 21:54 ABG Chloride 99.0 mmol/L (98-107) 03/12/21 21:54 ABG Glucose 306 mg/dL (65-95) H 03/12/21 21:54 Oxyhemoglobin 85.1 % (95.0-99.0) L 03/13/21 11:15 Carboxyhemoglobin 0.6 (0.5-1.5) 03/12/21 21:54 FiO2 40 % 03/13/21 11:15 FiO2 % 50.0 03/12/21 21:54 Sodium 141 mmol/L (137-145) 03/14/21 05:50 Potassium 5.9 mmol/L (3.6-5.0) H 03/14/21 05:50 Chloride 104.4 mmol/L (98-107) 03/14/21 05:50 Carbon Dioxide 31 mmol/L (22-30) H 03/14/21 05:50 Anion Gap 12 mmol/L 03/14/21 05:50 BUN 48 mg/dL (9-20) H 03/14/21 05:50 Creatinine 1.0 mg/dL (0.8-1.3) 03/14/21 05:50 Estimated GFR > 60 ml/min 03/14/21 05:50 BUN/Creatinine Ratio 48 % 03/14/21 05:50 Glucose 380 mg/dL (75-100) H 03/14/21 05:50 POC Glucose 315 mg/dL (70-105) H 03/14/21 11:33 Lactic Acid 1.90 mmol/L (0.7-2.0) 03/08/21 23:51 Calcium 8.7 mg/dL (8.4-10.2) 03/14/21 05:50 Phosphorus 3.00 mg/dL (2.5-4.5) 03/14/21 05:50 Magnesium 3.40 mg/dL (1.7-2.3) H 03/14/21 05:50 Ferritin 858.7 ng/mL (30.0-300.0) H 03/13/21 05:44 Total Bilirubin 0.20 mg/dL (0.1-1.2) 03/12/21 08:03 AST 10 units/L (5-40) 03/12/21 08:03 ALT 16 units/L (7-56) 03/12/21 08:03 Alkaline Phosphatase 77 units/L (35-129) 03/12/21 08:03 Lactate Dehydrogenase 348 units/L (91-180) H 03/13/21 05:44 C-Reactive Protein 2.80 mg/dL (0.00-1.30) H 03/13/21 05:44 NT-Pro-B Natriuret Pep 1053 pg/mL (0-900) H 03/08/21 20:24 Total Protein 6.0 g/dL (6.3-8.2) L 03/12/21 08:03 Albumin 2.9 g/dL (3.9-5) L 03/12/21 08:03 Albumin/Globulin Ratio 0.9 % 03/12/21 08:03 Procalcitonin 0.14 ng/mL (<0.15) 03/10/21 09:47 Arterial Blood Glucose 306 mg/dL (65-95) H 03/12/21 21:54 Arterial Blood Ionized Calcium 5.0 mg/dL (4.6-5.3) 03/12/21 21:54 Urine Color Yellow (Yellow) 03/09/21 04:10 Urine Turbidity Slightly-cloudy (Clear) 03/09/21 04:10 Urine pH 5.0 (5.0-7.0) 03/09/21 04:10 Ur Specific [place] 1.041 (1.003-1.030) H 03/09/21 04:10 Urine Protein 100 mg/dl mg/dL (Negative) 03/09/21 04:10 Urine Glucose (UA) Neg mg/dL (Negative) 03/09/21 04:10 Urine Ketones Neg mg/dL (Negative) 03/09/21 04:10 Urine Blood Mod (Negative) 03/09/21 04:10 Urine Nitrite Neg (Negative) 03/09/21 04:10 Urine Bilirubin Neg (Negative) 03/09/21 04:10 Urine Urobilinogen 2.0 mg/dL (<2.0) 03/09/21 04:10 Ur Leukocyte Esterase Neg (Negative) 03/09/21 04:10 Urine WBC (Auto) 4.0 /HPF (0.0-6.0) 03/09/21 04:10 Urine RBC (Auto) 1.0 /HPF (0.0-6.0) 03/09/21 04:10 Urine Bacteria (Auto) 1+ /HPF (Negative) 03/09/21 04:10 Urine Mucus Few /HPF 03/09/21 04:10 Coronavirus (PCR) Positive (Negative) A 03/09/21 08:00 Microbiology: Microbiology 03/08/21 20:41 Peripheral/Venous Blood Culture - Final NO GROWTH AFTER 5 DAYS 03/08/21 20:24 Peripheral/Venous Blood Culture - Final NO GROWTH AFTER 5 DAYS 03/10/21 15:39 Tracheal Aspirate Sputum Culture - Final Good/IV: Voiding Method Indwelling Catheter Active Medications - Current Medications Current Medications: Generic Name Dose Route Start Last Admin Trade Name Freq PRN Reason Stop Dose Admin Acetaminophen 650 mg 03/09/21 01:26 03/13/21 13:32 Acetaminophen 325 Mg Tab PO 650 mg Q4H PRN Administration Pain MILD(1-3)/Fever >100.5/RAYO Albuterol 2.5 mg 03/09/21 01:26 Albuterol 2.5 Mg/3 Ml Nebu IH Q4HRT PRN Shortness Of Breath Albuterol/Ipratropium 1 ampul 03/11/21 08:00 03/14/21 08:16 Ipratropium/Albuterol Sulfate 3 Ml Ampul.Neb IH 1 ampul TIDRT BLANAC Administration Arformoterol Tartrate 15 mcg 03/11/21 20:00 03/14/21 08:16 Arformoterol 15 Mcg/2 Ml Nebu IH 15 mcg Q12HRT BLANCA Administration Ascorbic Acid 500 mg 03/10/21 14:00 03/14/21 09:50 Ascorbic Acid 500 Mg Tab PO 500 mg BID BLANCA Administration Budesonide 0.25 mg 03/11/21 20:00 03/14/21 08:17 Budesonide 0.25 Mg/2 Ml Nebu IH 0.25 mg Q12HRT BLANCA Administration Dextrose 0 ml 03/09/21 01:26 Dextrose 50% In Water (25gm) 50 Ml Syringe IV Q30MIN PRN Hypoglycemia Protocol Enoxaparin Sodium 100 mg 03/09/21 10:00 03/14/21 09:50 Enoxaparin 100 Mg/1 Ml Inj SUB-Q 100 mg Q12HR BLANCA Administration Protocol Famotidine 20 mg 03/12/21 22:00 03/14/21 09:50 Famotidine 20 Mg Tab FEEDTUBE 20 mg BID BLANCA Administration Fentanyl 50 mcg 03/10/21 16:47 Fentanyl 100 Mcg/2 Ml Inj IV Q10MIN PRN ANALGESIA Furosemide 20 mg 03/14/21 11:00 03/14/21 11:34 Furosemide 40 Mg/4 Ml Inj IV 03/14/21 14:00 20 mg ONCE@1100 [facility] Administration Hydralazine HCl 10 mg 03/09/21 01:36 03/10/21 03:56 Hydralazine 20 Mg/1 Ml Inj IV 10 mg Q6H PRN Administration Blood Pressure Hydralazine HCl 50 mg 03/11/21 17:00 03/14/21 06:26 Hydralazine 25 Mg Tab PO 50 mg Q8HR [facility] Administration Hydrophilic Ointment 1 applic 03/10/21 15:39 Lip Therapy Vaseline TP Q2HR PRN Dry Lips Fentanyl Citrate 2,000 mcg in 100 mls @ 5.897 mls/hr 03/10/21 17:00 03/14/21 08:38 Fentanyl Drip Premix IV 3 mcg/kg/hr TITR BLANCA 17.69 mls/hr Administration Protocol 1 MCG/KG/HR Propofol 1,000 mg in 100 mls @ 3.507 mls/hr 03/11/21 17:00 03/14/21 11:20 Diprivan 10 Mg/Ml IV 30 mcg/kg/min TITR BLANCA 21.042 mls/hr Administration Protocol 5 MCG/KG/MIN Insulin Glargine 25 units 03/14/21 10:00 03/14/21 09:50 Insulin Glargine 100 Units/Ml SUB-Q 25 units BID BLANCA Administration Insulin Human Lispro 0 unit 03/11/21 18:00 03/14/21 11:34 Insulin Lispro 100 Unit/Ml SUB-Q 8 unit Q6HR BLANCA Administration Protocol Insulin Human Regular 5 units 03/14/21 12:00 03/14/21 11:34 Insulin Regular, Human 100 Units/1 Ml SUB-Q 5 units Q6HR BLANCA Administration Labetalol HCl 10 mg 03/12/21 21:13 Labetalol 20 Mg/4 Ml Inj IV Q6H PRN Blood Pressure Methylprednisolone Sodium Succinate 60 mg 03/10/21 22:00 03/14/21 06:22 Methylprednisolone Sod Succinate 125 Mg/2 Ml Inj IV 60 mg Q8HR BLANCA Administration Multi-Ingred Cream/Lotion/Oil/Oint 1 applic 03/10/21 15:39 Mineral Oil/Petrolatum, White Ophth Oint 3.5 Gm OU Q4HR PRN Dry Eye(s) Ondansetron HCl 4 mg 03/09/21 01:26 Ondansetron 4 Mg/2 Ml Inj IV Q8H PRN Nausea And Vomiting Senna/Docusate Sodium 1 tab 03/10/21 22:00 03/14/21 09:50 Sennosides/Docusate Sodium 8.6/50 Mg Tab FEEDTUBE 1 tab BID BLANCA Administration Sodium Chloride 10 ml 03/09/21 10:00 03/14/21 09:51 Sodium Chloride 0.9% 10 Ml Flush Syringe IV 10 ml BID BLANCA Administration Sodium Chloride 10 ml 03/09/21 01:26 Sodium Chloride 0.9% 10 Ml Flush Syringe IV PRN PRN LINE FLUSH Zinc Sulfate 220 mg 03/10/21 14:00 03/14/21 09:50 Zinc Sulfate 220 Mg Cap PO 220 mg BID BLANCA Administration Nutrition/Malnutrition Assess - Dietary Evaluation Nutrition/Malnutrition Findings: Nutrition Notes Start: 03/09/21 08:49 Freq: Status: Active Protocol: Document 03/14/21 10:48 BRYANNA (Rec: 03/14/21 11:07 BRYANNA [id number]) Nutrition Notes Initial or Follow up Brief Note Current Diet TF-Glucerna 1.2 Tyson @ 66 ml/hr (since L 03/14). Height 5 ft 11 in Weight 117 kg [place] Body Weight (kg) 78.18 BMI 35.9 Weight change and time frame No body weight change reported . Weight Status Obese Subjective/Other Information RD consult for TF change requested by RN. RN states that Pt's bG has been high and request a change to Glucerna, since no kidney complications are present. Percent of energy/protein needs met: Prescribed Glucerna 1.2 Tyson @ 66 ml/hr provides for energy/ protein needs (1911 Kcal/96 g) during LOS, 100% Kcal; 75% AA . #1 Nutrition Diagnosis Inadequate oral intake Comments: RN states that Pt's bG has been high and request a change to Glucerna, since no kidney complications are present. Diagnosis Progress(for reassessment Continues documentation) Is patient on ventilator? Yes Is Patient Ambulatory and/or Out of Bed No REE-([place] [facility]-confined to bed) [phone] Calculation Used for Recommendations 70-80% energy needs Additional Notes Energy needs: 5998-7239 kcal/ day Pro needs 1.3g/kg adjBW: 127g/ day Fluid needs 1ml/kcal Nutrition Intervention Nutrition Support: Change to Glucerna 1.2 Tyson @66 ml/hr. Flush: 100 ml water Q 4 hr, or as per MD. Kcal 1,911 Protein (gm) 96 Carbohydrates (gm) 182 Fat (gm) 96 Fluid (mL) 1,282 Fiber (gm) 26 % RDI: 100% Kcal; 75% AA. Goal #1 Provide at least 75% of energy /protein needs through Enteral Feeding during LOS. Follow-Up By: 03/17/21 Additional Comments Continue monitoring TF tolerance and BM. <RAFAEL DOMINGUEZ - Last Filed: 03/15/21 21:26> Assessment and Plan Assessment and plan: I saw and evaluated the patient. Discussed with the nurse practitioner and agree with their findings and plan as documented in this note. Hospitalist Physical - Constitutional Vitals: Temp Pulse Resp BP Pulse Ox 99.6 F 111 H 19 128/75 93 03/15/21 20:00 03/15/21 21:00 03/15/21 21:00 03/15/21 21:00 03/15/21 21:00 Results - Labs CBC & Chem 7: 03/15/21 15:06 03/15/21 15:07 Labs: Laboratory Last Values WBC 11.6 K/mm3 (4.5-11.0) H 03/14/21 05:50 RBC 4.53 M/mm3 (3.65-5.03) 03/14/21 05:50 Hgb 14.3 gm/dl (11.8-15.2) 03/15/21 15:06 Hct 44.6 % (35.5-45.6) 03/15/21 15:06 MCV 92 fl (84-94) 03/14/21 05:50 MCH 30 pg (28-32) 03/14/21 05:50 MCHC 32 % (32-34) 03/14/21 05:50 RDW 14.5 % (13.2-15.2) 03/14/21 05:50 Plt Count 332 K/mm3 (140-440) 03/14/21 05:50 Add Manual Diff Complete 03/10/21 04:29 Total Counted 100 03/10/21 04:29 Seg Neuts % (Manual) 94.0 % (40.0-70.0) H 03/10/21 04:29 Band Neutrophils % 0 % 03/10/21 04:29 Lymphocytes % (Manual) 1.0 % (13.4-35.0) L 03/10/21 04:29 Reactive Lymphs % (Man) 0 % 03/10/21 04:29 Monocytes % (Manual) 5.0 % (0.0-7.3) 03/10/21 04:29 Eosinophils % (Manual) 0 % (0.0-4.3) 03/10/21 04:29 Basophils % (Manual) 0 % (0.0-1.8) 03/10/21 04:29 Metamyelocytes % 0 % 03/10/21 04:29 Myelocytes % 0 % 03/10/21 04:29 Promyelocytes % 0 % 03/10/21 04:29 Blast Cells % 0 % 03/10/21 04:29 Nucleated RBC % 3.0 % (0.0-0.9) H 03/10/21 04:29 Seg Neutrophils # Man 19.4 K/mm3 (1.8-7.7) H 03/10/21 04:29 Band Neutrophils # 0.0 K/mm3 03/10/21 04:29 Lymphocytes # (Manual) 0.2 K/mm3 (1.2-5.4) L 03/10/21 04:29 Abs React Lymphs (Man) 0.0 K/mm3 03/10/21 04:29 Monocytes # (Manual) 1.0 K/mm3 (0.0-0.8) H 03/10/21 04:29 Eosinophils # (Manual) 0.0 K/mm3 (0.0-0.4) 03/10/21 04:29 Basophils # (Manual) 0.0 K/mm3 (0.0-0.1) 03/10/21 04:29 Metamyelocytes # 0.0 K/mm3 03/10/21 04:29 Myelocytes # 0.0 K/mm3 03/10/21 04:29 Promyelocytes # 0.0 K/mm3 03/10/21 04:29 Blast Cells # 0.0 K/mm3 03/10/21 04:29 WBC Morphology Not Reportable 03/10/21 04:29 Hypersegmented Neuts Not Reportable 03/10/21 04:29 Hyposegmented Neuts Not Reportable 03/10/21 04:29 Hypogranular Neuts Not Reportable 03/10/21 04:29 Smudge Cells Not Reportable 03/10/21 04:29 Toxic Granulation Not Reportable 03/10/21 04:29 Toxic Vacuolation Not Reportable 03/10/21 04:29 Dohle Bodies Not Reportable 03/10/21 04:29 Pelger-Huet Anomaly Not Reportable 03/10/21 04:29 Mely Rods Not Reportable 03/10/21 04:29 Platelet Estimate Consistent w auto 03/10/21 04:29 Clumped Platelets Not Reportable 03/10/21 04:29 Plt Clumps, EDTA Not Reportable 03/10/21 04:29 Large Platelets Not Reportable 03/10/21 04:29 Giant Platelets Not Reportable 03/10/21 04:29 Platelet Satelliting Not Reportable 03/10/21 04:29 Plt Morphology Comment Not Reportable 03/10/21 04:29 RBC Morphology Normal 03/10/21 04:29 Dimorphic RBCs Not Reportable 03/10/21 04:29 Polychromasia Not Reportable 03/10/21 04:29 Hypochromasia Not Reportable 03/10/21 04:29 Poikilocytosis Not Reportable 03/10/21 04:29 Anisocytosis Not Reportable 03/10/21 04:29 Microcytosis Not Reportable 03/10/21 04:29 Macrocytosis Not Reportable 03/10/21 04:29 Spherocytes Not Reportable 03/10/21 04:29 Pappenheimer Bodies Not Reportable 03/10/21 04:29 Sickle Cells Not Reportable 03/10/21 04:29 Target Cells Not Reportable 03/10/21 04:29 Tear Drop Cells Not Reportable 03/10/21 04:29 Ovalocytes Not Reportable 03/10/21 04:29 Helmet Cells Not Reportable 03/10/21 04:29 [place]-Carter Bodies Not Reportable 03/10/21 04:29 [place] Rings Not Reportable 03/10/21 04:29 [place] Cells Not Reportable 03/10/21 04:29 Bite Cells Not Reportable 03/10/21 04:29 Crenated Cell Not Reportable 03/10/21 04:29 Elliptocytes Not Reportable 03/10/21 04:29 Acanthocytes (Spur) Not Reportable 03/10/21 04:29 Rouleaux Not Reportable 03/10/21 04:29 Hemoglobin C Crystals Not Reportable 03/10/21 04:29 Schistocytes Not Reportable 03/10/21 04:29 Malaria parasites Not Reportable 03/10/21 04:29 Shaheen Bodies Not Reportable 03/10/21 04:29 Hem Pathologist Commnt No 03/10/21 04:29 PT 16.1 Sec. (12.2-14.9) H 03/08/21 20:24 INR 1.17 (0.87-1.13) H 03/08/21 20:24 APTT 28.0 Sec. (24.2-36.6) 03/08/21 20:24 D-Dimer 1781.79 ng/mlDDU (0-234) H 03/15/21 06:06 ABG pH 7.410 pH Units (7.350-7.450) 03/15/21 14:05 POC ABG pCO2 71.9 mmHg (32.0-48.0) H 03/12/21 21:54 ABG pCO2 59.1 mm Hg 03/15/21 14:05 POC ABG pO2 53.6 mmHg (83-108) L 03/12/21 21:54 ABG pO2 52.1 mm Hg (80.0-90.0) L 03/15/21 14:05 POC ABG HCO3 30.0 03/12/21 21:54 ABG HCO3 36.6 mmol/L (20.0-26.0) H 03/15/21 14:05 ABG O2 Saturation 87.6 % (95.0-99.0) L 03/15/21 14:05 ABG O2 Content 18.3 (0.0-44) 03/15/21 14:05 POC ABG Base Excess 0.5 03/12/21 21:54 ABG Base Excess 9.5 mmol/L (-2.0-3.0) H 03/15/21 14:05 ABG Hemoglobin 15.2 gm/dl (14.0-18.0) 03/15/21 14:05 ABG Oxyhemoglobin 84.8 (94-98) L 03/12/21 21:54 ABG Carboxyhemoglobin 1.4 % (0.0-5.0) 03/15/21 14:05 ABG Methemoglobin 0.8 % (0.0-1.5) 03/15/21 14:05 ABG Sodium 134.2 mmol/L (136.0-145.0) L 03/12/21 21:54 ABG Potassium 4.9 mmol/L (3.40-4.50) H 03/12/21 21:54 ABG Chloride 99.0 mmol/L (98-107) 03/12/21 21:54 ABG Glucose 306 mg/dL (65-95) H 03/12/21 21:54 Oxyhemoglobin 85.7 % (95.0-99.0) L 03/15/21 14:05 Carboxyhemoglobin 0.6 (0.5-1.5) 03/12/21 21:54 FiO2 40 % 03/15/21 14:05 FiO2 % 50.0 03/12/21 21:54 Sodium 148 mmol/L (137-145) H 03/15/21 06:06 Potassium 4.9 mmol/L (3.6-5.0) 03/15/21 15:07 Chloride 108.0 mmol/L (98-107) H 03/15/21 06:06 Carbon Dioxide 31 mmol/L (22-30) H 03/15/21 06:06 Anion Gap 15 mmol/L 03/15/21 06:06 BUN 46 mg/dL (9-20) H 03/15/21 06:06 Creatinine 1.0 mg/dL (0.8-1.3) 03/15/21 06:06 Estimated GFR > 60 ml/min 03/15/21 06:06 BUN/Creatinine Ratio 46 % 03/15/21 06:06 Glucose 139 mg/dL (75-100) H 03/15/21 06:06 POC Glucose 263 mg/dL (70-105) H 03/15/21 17:09 Lactic Acid 1.90 mmol/L (0.7-2.0) 03/08/21 23:51 Calcium 8.9 mg/dL (8.4-10.2) 03/15/21 06:06 Phosphorus 4.80 mg/dL (2.5-4.5) H D 03/15/21 06:06 Magnesium 3.00 mg/dL (1.7-2.3) H 03/15/21 06:06 Ferritin 976.4 ng/mL (30.0-300.0) H 03/15/21 04:00 Total Bilirubin 0.20 mg/dL (0.1-1.2) 03/12/21 08:03 AST 10 units/L (5-40) 03/12/21 08:03 ALT 16 units/L (7-56) 03/12/21 08:03 Alkaline Phosphatase 77 units/L (35-129) 03/12/21 08:03 Lactate Dehydrogenase 630 units/L (91-180) H 03/15/21 06:06 C-Reactive Protein 0.80 mg/dL (0.00-1.30) 03/15/21 06:06 NT-Pro-B Natriuret Pep 1053 pg/mL (0-900) H 03/08/21 20:24 Total Protein 6.0 g/dL (6.3-8.2) L 03/12/21 08:03 Albumin 2.9 g/dL (3.9-5) L 03/12/21 08:03 Albumin/Globulin Ratio 0.9 % 03/12/21 08:03 Procalcitonin 0.14 ng/mL (<0.15) 03/10/21 09:47 Arterial Blood Glucose 306 mg/dL (65-95) H 03/12/21 21:54 Arterial Blood Ionized Calcium 5.0 mg/dL (4.6-5.3) 03/12/21 21:54 Urine Color Yellow (Yellow) 03/09/21 04:10 Urine Turbidity Slightly-cloudy (Clear) 03/09/21 04:10 Urine pH 5.0 (5.0-7.0) 03/09/21 04:10 Ur Specific [place] 1.041 (1.003-1.030) H 03/09/21 04:10 Urine Protein 100 mg/dl mg/dL (Negative) 03/09/21 04:10 Urine Glucose (UA) Neg mg/dL (Negative) 03/09/21 04:10 Urine Ketones Neg mg/dL (Negative) 03/09/21 04:10 Urine Blood Mod (Negative) 03/09/21 04:10 Urine Nitrite Neg (Negative) 03/09/21 04:10 Urine Bilirubin Neg (Negative) 03/09/21 04:10 Urine Urobilinogen 2.0 mg/dL (<2.0) 03/09/21 04:10 Ur Leukocyte Esterase Neg (Negative) 03/09/21 04:10 Urine WBC (Auto) 4.0 /HPF (0.0-6.0) 03/09/21 04:10 Urine RBC (Auto) 1.0 /HPF (0.0-6.0) 03/09/21 04:10 Urine Bacteria (Auto) 1+ /HPF (Negative) 03/09/21 04:10 Urine Mucus Few /HPF 03/09/21 04:10 Coronavirus (PCR) Positive (Negative) A 03/09/21 08:00 Good/IV: Voiding Method Indwelling Catheter Active Medications - Current Medications Current Medications: Generic Name Dose Route Start Last Admin Trade Name Freq PRN Reason Stop Dose Admin Acetaminophen 650 mg 03/09/21 01:26 03/14/21 17:24 Acetaminophen 325 Mg Tab PO 650 mg Q4H PRN Administration Pain MILD(1-3)/Fever >100.5/RAYO Albuterol 2.5 mg 03/09/21 01:26 Albuterol 2.5 Mg/3 Ml Nebu IH Q4HRT PRN Shortness Of Breath Albuterol/Ipratropium 1 ampul 03/11/21 08:00 03/15/21 19:49 Ipratropium/Albuterol Sulfate 3 Ml Ampul.Neb IH 1 ampul TIDRT BLANCA Administration Arformoterol Tartrate 15 mcg 03/11/21 20:00 03/15/21 19:49 Arformoterol 15 Mcg/2 Ml Nebu IH 15 mcg Q12HRT BLANCA Administration Ascorbic Acid 500 mg 03/10/21 14:00 03/15/21 09:02 Ascorbic Acid 500 Mg Tab PO 500 mg BID BLANCA Administration Budesonide 0.25 mg 03/11/21 20:00 03/15/21 19:49 Budesonide 0.25 Mg/2 Ml Nebu IH 0.25 mg Q12HRT BLANCA Administration Dextrose 0 ml 03/09/21 01:26 Dextrose 50% In Water (25gm) 50 Ml Syringe IV Q30MIN PRN Hypoglycemia Protocol Enoxaparin Sodium 100 mg 03/09/21 10:00 03/15/21 09:02 Enoxaparin 100 Mg/1 Ml Inj SUB-Q 100 mg Q12HR BLANCA Administration Protocol Famotidine 20 mg 03/12/21 22:00 03/15/21 09:02 Famotidine 20 Mg Tab FEEDTUBE 20 mg BID BLANCA Administration Fentanyl 50 mcg 03/10/21 16:47 Fentanyl 100 Mcg/2 Ml Inj IV Q10MIN PRN ANALGESIA Hydralazine HCl 10 mg 03/09/21 01:36 03/10/21 03:56 Hydralazine 20 Mg/1 Ml Inj IV 10 mg Q6H PRN Administration Blood Pressure Hydralazine HCl 50 mg 03/11/21 17:00 03/15/21 14:00 Hydralazine 25 Mg Tab PO Not Given Q8HR [facility] Hydrophilic Ointment 1 applic 03/10/21 15:39 Lip Therapy Vaseline TP Q2HR PRN Dry Lips Fentanyl Citrate 2,000 mcg in 100 mls @ 5.897 mls/hr 03/10/21 17:00 03/15/21 18:15 Fentanyl Drip Premix IV 4 mcg/kg/hr TITR BLANCA 23.587 mls/hr Administration Protocol 1 MCG/KG/HR Propofol 1,000 mg in 100 mls @ 3.507 mls/hr 03/11/21 17:00 03/15/21 14:50 Diprivan 10 Mg/Ml IV 35 mcg/kg/min TITR BLANCA 24.549 mls/hr Administration Protocol 5 MCG/KG/MIN Insulin Glargine 25 units 03/14/21 10:00 03/15/21 09:03 Insulin Glargine 100 Units/Ml SUB-Q 25 units BID [facility] Administration Insulin Human Lispro 0 unit 03/11/21 18:00 03/15/21 18:14 Insulin Lispro 100 Unit/Ml SUB-Q 6 unit Q6HR [facility] Administration Protocol Insulin Human Regular 5 units 03/14/21 12:00 03/15/21 18:14 Insulin Regular, Human 100 Units/1 Ml SUB-Q 5 units Q6HR [facility] Administration Labetalol HCl 10 mg 03/12/21 21:13 Labetalol 20 Mg/4 Ml Inj IV Q6H PRN Blood Pressure Methylprednisolone Sodium Succinate 60 mg 03/10/21 22:00 03/15/21 13:03 Methylprednisolone Sod Succinate 125 Mg/2 Ml Inj IV 60 mg Q8HR BLANCA Administration Midazolam HCl 2 mg 03/15/21 08:49 03/15/21 17:56 Midazolam 2 Mg/2 Ml Inj IV 2 mg Q2H PRN Administration VENT SYNCHRONY Multi-Ingred Cream/Lotion/Oil/Oint 1 applic 03/10/21 15:39 Mineral Oil/Petrolatum, White Ophth Oint 3.5 Gm OU Q4HR PRN Dry Eye(s) Ondansetron HCl 4 mg 03/09/21 01:26 Ondansetron 4 Mg/2 Ml Inj IV Q8H PRN Nausea And Vomiting Senna/Docusate Sodium 1 tab 03/10/21 22:00 03/15/21 13:04 Sennosides/Docusate Sodium 8.6/50 Mg Tab FEEDTUBE Not Given BID BLANCA Sodium Chloride 10 ml 03/09/21 10:00 03/15/21 10:04 Sodium Chloride 0.9% 10 Ml Flush Syringe IV 10 ml BID BLANCA Administration Sodium Chloride 10 ml 03/09/21 01:26 Sodium Chloride 0.9% 10 Ml Flush Syringe IV PRN PRN LINE FLUSH Zinc Sulfate 220 mg 03/10/21 14:00 03/15/21 09:02 Zinc Sulfate 220 Mg Cap PO 220 mg BID BLANCA Administration Nutrition/Malnutrition Assess - Dietary Evaluation Nutrition/Malnutrition Findings: Nutrition Notes Start: 03/09/21 0 8:49 Freq: Status: Active Protocol: Document 03/14/21 10:48 BRYANNA (Rec: 03/14/21 11:07 BRYANNA [id number]) Nutrition Notes Initial or Follow up Brief Note Current Diet TF-Glucerna 1.2 Tyson @ 66 ml/hr (since L 03/14). Height 5 ft 11 in Weight 117 kg [place] Body Weight (kg) 78.18 BMI 35.9 Weight change and time frame No body weight change reported . Weight Status Obese Subjective/Other Information RD consult for TF change requested by RN. RN states that Pt's bG has been high and request a change to Glucerna, since no kidney complications are present. Percent of energy/protein needs met: Prescribed Glucerna 1.2 Tyson @ 66 ml/hr provides for energy/ protein needs (1911 Kcal/96 g) during LOS, 100% Kcal; 75% AA . #1 Nutrition Diagnosis Inadequate oral intake Comments: RN states that Pt's bG has been high and request a change to Glucerna, since no kidney complications are present. Diagnosis Progress(for reassessment Continues documentation) Is patient on ventilator? Yes Is Patient Ambulatory and/or Out of Bed No REE-([place]-confined to bed) [phone] Calculation Used for Recommendations 70-80% energy needs Additional Notes Energy needs: 4912-3477 kcal/ day Pro needs 1.3g/kg adjBW: 127g/ day Fluid needs 1ml/kcal Nutrition Intervention Nutrition Support: Change to Glucerna 1.2 Tyson @66 ml/hr. Flush: 100 ml water Q 4 hr, or as per MD. Kcal 1,911 Protein (gm) 96 Carbohydrates (gm) 182 Fat (gm) 96 Fluid (mL) 1,282 Fiber (gm) 26 % RDI: 100% Kcal; 75% AA. Goal #1 Provide at least 75% of energy /protein needs through Enteral Feeding during LOS. Follow-Up By: 03/17/21 Additional Comments Continue monitoring TF tolerance and BM.
--- NOTE | 2021-03-14 13:49 | Progress Note ---
Assessment and Plan Cultures: SARS CoV2 PCR: positive 03/08/2021 blood culture: no growth 03/10/2021 sputum culture: Usual respiratory marlyn A/P: 61-year-old male with diabetes, hypertension admitted to the hospital with complaints of shortness of breath and feeling weak for the last 1 week: #Sepsis secondary to bilateral pneumonia: secondary to COVID-19. Elevated inflammatory markers. WBC 22.6, creatinine 1.3, ferritin 877, CRP 18.0, LDH 624, procalcitonin 0.18. D-dimer >10k. CTA negative for pulmonary embolism, severe patchy groundglass opacities. #Acute hypoxic respiratory failure: initially required BiPAP, now intubated, on the vent. #DM #HTN Recs: -steroids per pulm, on solumedrol -completed IV remdesivir -s/p Actemra 03/10/2021 -prophylactic anticoagulation based on d-dimer per hospital protocol -CRP improved to 2.8, D-dimer improved to 3567 -poor prognosis Sangita Nicole MD, FACP, [facility] O: [phone] F: [phone] Subjective Date of service: 03/14/21 Principal diagnosis: AHRF; COVID-19 infection; DM II; Bilateral pneumonia; Obesity; HTN Interval history: No fever. Remains on the vent. CRP improved to 2.8, D-dimer improved to 3567 Objective - Exam Narrative Exam: Physical Exam (reviewed in chart to minimize risk of transmission) Constitutional: deferred Head, Ears, Nose: deferred Eyes: deferred Neck: deferred Oral: deferred Cardiovascular: deferred Respiratory: deferred GI: deferred Musculoskeletal: deferred Skin: deferred Hem/Lymphatic: deferred Psych: deferred Neurological: deferred - Constitutional Vitals: Vital Signs Temp Pulse Resp BP Pulse Ox 99.5 F 112 H 27 H 117/78 100 03/14/21 08:00 03/14/21 12:00 03/14/21 12:00 03/14/21 12:00 03/14/21 12:00 Temperature -Last 24 Hours Temperature 99.5 F Temperature 98.3 F Temperature 98.5 F Temperature 99.8 F Temperature 100.0 F - Labs CBC & Chem 7: 03/14/21 05:50 03/14/21 05:50 Labs: Abnormal lab results 03/13/21 03/13/21 03/13/21 Range/Units 15:47 19:23 23:46 WBC (4.5-11.0) K/mm3 Sodium 136 L (137-145) mmol/L Potassium 5.9 H (3.6-5.0) mmol/L Carbon Dioxide (22-30) mmol/L BUN 50 H (9-20) mg/dL Glucose 397 H (75-100) mg/dL POC Glucose 317 H 332 H (70-105) mg/dL Magnesium (1.7-2.3) mg/dL 03/14/21 03/14/21 03/14/21 Range/Units 05:32 05:50 05:50 WBC 11.6 H (4.5-11.0) K/mm3 Sodium (137-145) mmol/L Potassium 5.9 H (3.6-5.0) mmol/L Carbon Dioxide 31 H (22-30) mmol/L BUN 48 H (9-20) mg/dL Glucose 380 H (75-100) mg/dL POC Glucose 316 H (70-105) mg/dL Magnesium 3.40 H (1.7-2.3) mg/dL 03/14/21 Range/Units 11:33 WBC (4.5-11.0) K/mm3 Sodium (137-145) mmol/L Potassium (3.6-5.0) mmol/L Carbon Dioxide (22-30) mmol/L BUN (9-20) mg/dL Glucose (75-100) mg/dL POC Glucose 315 H (70-105) mg/dL Magnesium (1.7-2.3) mg/dL
--- NOTE | 2021-03-14 14:23 | Progress Note ---
Assessment and Plan Acute hypoxemic respiratory failure, on MVS COVID-19 infection Bilateral pneumonia Obesity BMI 36 Hypertension Leukocytosis Possible venous thromboembolic phenomena with significantly elevated D-dimers DM II Elevated serum inflammatory markers to include CRP levels, ferritin and LDH Hyperkalemia Decreased PEEP to 8 Give another dose of IV Lasix 20mg x1 now, follow up BMP at 6pm Treat hyperkalemia with Kayexalate Adjust insulin for better glycemic control Nutrition consult, change tube feeding to Glucerna - VAP bundle addressed, aspiration precautions - continue to titrate supplemental oxygen to keep SpO2 88-90% -Lung protective strategies, permissive hypercapnia is acceptable - aspiration precautions - continue bronchodilators with pulmonary hygiene per RT - continue accuchecks with glycemic control per SSI (While critically ill target blood glucose of 140-180 mg/dL; avoid hypoglycemia) - avoid nephrotoxins, renally dose all medications - avoid benzodiazepines, reduce the possibility of delirium - sedation target for RASS 0 to -1 -On Propofol and Fentanyl - prn analgesia per pain score - Maintenance of sleep-wake cycle, avoid delirium - Stress ulcer prophylaxis -Therapeutic anticoagulation- on Enoxaparin - PT/OT/ROM exercises - mobility protocols for pressure ulcer prophylaxis - Monitor hemodynamics closely - continue other care per attending / other consultants COVID SPECIFIC INTERVENTIONS - Remdesivir as per ID/Pulmonary developed protocols - continue systemic steroids for severe COVID-19 infection (Decadron) - Monitor inflammatory markers per facility protocol - ferritin, Ddimer, CRP - therapeutic anticoagulation per system Protocol based on d-dimer and clinical considerations -on therapeutic enoxaparin - Continue contact and airborne isolation CONDITION: CRITICAL PROGNOSIS: GUARDED CODE STATUS: FULL CODE The high probability of a clinically significant, sudden or life-threatening deterioration of the [respiratory, cardiovascular & hematologic] system(s) required my full and direct attention, intervention and personal management. The aggregate critical care time was [35] minutes without overlap. Time includes spent on; [x] Data Review and interpretation [x] Patient assessment and monitoring of vital signs [x] Documentation [x] Medication orders and management Subjective Date of service: 03/14/21 Principal diagnosis: AHRF; COVID-19 infection; DM II; Bilateral pneumonia; Obesity; HTN Interval history: Patient is seen today for: Acute hypoxemic respiratory failure; COVID-19 infection; DM II; Bilateral pneumonia; Obesity; HTN Seen and examined at bedside; 24hour events reviewed; nursing and respiratory care staff consulted; no adverse overnight events reported to me; resting in bed; well sedated; on MVS PEEP +10, FIO2 50%; no emesis or overt aspiration; afebrile On Propofol and Fentanyl. Positive fluid balance +300ml, robust response to IV lasix yesterday Objective Vital Signs - 12hr 03/14/21 03/14/21 03/14/21 02:30 03:00 03:30 Temperature Pulse Rate 90 90 90 Pulse Rate [ Anterior] Pulse Rate [ Bilateral Throughout] Pulse Rate [ From Monitor] Respiratory 15 14 13 Rate Respiratory Rate [Anterior] Respiratory Rate [Bilateral Throughout] Blood Pressure 130/68 115/74 126/71 O2 Sat by Pulse 98 99 99 Oximetry 03/14/21 03/14/21 03/14/21 03:46 04:00 04:30 Temperature 98.3 F Pulse Rate 90 90 92 H Pulse Rate [ Anterior] Pulse Rate [ Bilateral Throughout] Pulse Rate [ 100 H From Monitor] Respiratory 13 17 Rate Respiratory Rate [Anterior] Respiratory Rate [Bilateral Throughout] Blood Pressure 126/71 122/69 116/69 O2 Sat by Pulse 98 99 97 Oximetry 03/14/21 03/14/21 03/14/21 05:00 05:30 06:00 Temperature Pulse Rate 90 90 99 H Pulse Rate [ Anterior] Pulse Rate [ Bilateral Throughout] Pulse Rate [ From Monitor] Respiratory 19 17 19 Rate Respiratory Rate [Anterior] Respiratory Rate [Bilateral Throughout] Blood Pressure 129/66 120/70 120/70 O2 Sat by Pulse 97 98 98 Oximetry 03/14/21 03/14/21 03/14/21 06:26 06:30 07:00 Temperature Pulse Rate 92 H 86 89 Pulse Rate [ Anterior] Pulse Rate [ Bilateral Throughout] Pulse Rate [ From Monitor] Respiratory 12 9 L Rate Respiratory Rate [Anterior] Respiratory Rate [Bilateral Throughout] Blood Pressure 116/69 134/70 136/71 O2 Sat by Pulse 100 99 Oximetry 03/14/21 03/14/21 03/14/21 07:30 08:00 08:18 Temperature 99.5 F Pulse Rate 89 90 Pulse Rate [ 103 H Anterior] Pulse Rate [ 103 H Bilateral Throughout] Pulse Rate [ 85 From Monitor] Respiratory 21 27 H Rate Respiratory 25 H Rate [Anterior] Respiratory 25 H Rate [Bilateral Throughout] Blood Pressure 121/69 121/67 O2 Sat by Pulse 100 100 Oximetry 03/14/21 03/14/21 03/14/21 08:30 09:00 09:30 Temperature Pulse Rate 90 91 H 94 H Pulse Rate [ Anterior] Pulse Rate [ Bilateral Throughout] Pulse Rate [ From Monitor] Respiratory 14 22 17 Rate Respiratory Rate [Anterior] Respiratory Rate [Bilateral Throughout] Blood Pressure 118/67 122/69 131/65 O2 Sat by Pulse 99 100 100 Oximetry 03/14/21 03/14/21 03/14/21 10:00 10:30 11:00 Temperature Pulse Rate 111 H 107 H 106 H Pulse Rate [ Anterior] Pulse Rate [ Bilateral Throughout] Pulse Rate [ From Monitor] Respiratory 25 H 18 11 L Rate Respiratory Rate [Anterior] Respiratory Rate [Bilateral Throughout] Blood Pressure 131/65 124/79 122/67 O2 Sat by Pulse 97 98 Oximetry 03/14/21 03/14/21 03/14/21 11:30 12:00 12:30 Temperature 98.7 F Pulse Rate 109 H 111 H 116 H Pulse Rate [ Anterior] Pulse Rate [ Bilateral Throughout] Pulse Rate [ 112 H From Monitor] Respiratory 15 16 13 Rate Respiratory Rate [Anterior] Respiratory Rate [Bilateral Throughout] Blood Pressure 124/70 117/78 112/80 O2 Sat by Pulse 98 99 97 Oximetry 03/14/21 03/14/21 03/14/21 13:00 13:30 14:00 Temperature Pulse Rate 118 H 115 H 113 H Pulse Rate [ Anterior] Pulse Rate [ Bilateral Throughout] Pulse Rate [ From Monitor] Respiratory 13 16 12 Rate Respiratory Rate [Anterior] Respiratory Rate [Bilateral Throughout] Blood Pressure 122/78 115/79 115/81 O2 Sat by Pulse 99 98 97 Oximetry Constitutional: no acute distress, other (elderly obese male without ventilator dyssynchrony at [facility]) Eyes: non-icteric ENT: oropharynx moist, other (ETT 24 cm CHAITANYA) Neck: supple, no lymphadenopathy, no JVD, other (large circumference) Effort: mildly labored Ascultation: Bilateral: rhonchi Percussion: Bilateral: not dull Cardiovascular: regular rate and rhythm Gastrointestinal: normoactive bowel sounds, soft, non-tender, non-distended (protuberant) Integumentary: rash Extremities: no cyanosis, no edema, pulses normal, no ischemia or petechiae Neurologic: pupils equal and round, unable to assess, other (sedated) Psychiatric: other (unable to assess re: AMS) CBC and BMP: 03/14/21 18:34 03/14/21 18:34 ABG, PT/INR, D-dimer: ABG ABG pH 7.310 pH Units (7.350-7.450) L 03/13/21 11:15 POC ABG pCO2 71.9 mmHg (32.0-48.0) H 03/12/21 21:54 ABG pCO2 69.2 mm Hg 03/13/21 11:15 POC ABG pO2 53.6 mmHg (83-108) L 03/12/21 21:54 ABG pO2 52.3 mm Hg (80.0-90.0) L 03/13/21 11:15 POC ABG HCO3 30.0 03/12/21 21:54 ABG O2 Saturation 86.8 % (95.0-99.0) L 03/13/21 11:15 PT/INR, D-dimer PT 16.1 Sec. (12.2-14.9) H 03/08/21 20:24 INR 1.17 (0.87-1.13) H 03/08/21 20:24 D-Dimer 3567.97 ng/mlDDU (0-234) H 03/13/21 05:44 Abnormal lab findings: Abnormal Labs 03/08/21 03/08/21 03/08/21 20:24 20:24 20:24 WBC 22.6 H RBC 5.44 H Hgb 15.7 H Hct 49.2 H Seg Neuts % (Manual) 83.0 H Lymphocytes % (Manual) 9.0 L Monocytes % (Manual) 8.0 H Nucleated RBC % Seg Neutrophils # Man 18.8 H Lymphocytes # (Manual) Monocytes # (Manual) 1.8 H PT 16.1 H INR 1.17 H D-Dimer > 01488 H ABG pH POC ABG pCO2 POC ABG pO2 ABG pO2 ABG HCO3 ABG O2 Saturation ABG Base Excess ABG Hemoglobin ABG Oxyhemoglobin ABG Sodium ABG Potassium ABG Glucose Oxyhemoglobin Sodium 136 L Potassium Chloride 93.9 L Carbon Dioxide BUN 29 H Glucose 208 H POC Glucose Lactic Acid Magnesium Ferritin Lactate Dehydrogenase 624 H C-Reactive Protein 18.00 H NT-Pro-B Natriuret Pep 1053 H Total Protein Albumin Arterial Blood Glucose Ur Specific [place] Coronavirus (PCR) 03/08/21 03/08/21 03/09/21 20:24 20:24 04:10 WBC RBC Hgb Hct Seg Neuts % (Manual) Lymphocytes % (Manual) Monocytes % (Manual) Nucleated RBC % Seg Neutrophils # Man Lymphocytes # (Manual) Monocytes # (Manual) PT INR D-Dimer ABG pH POC ABG pCO2 POC ABG pO2 ABG pO2 ABG HCO3 ABG O2 Saturation ABG Base Excess ABG Hemoglobin ABG Oxyhemoglobin ABG Sodium ABG Potassium ABG Glucose Oxyhemoglobin Sodium Potassium Chloride Carbon Dioxide BUN Glucose POC Glucose Lactic Acid 2.10 H* Magnesium Ferritin 877.5 H Lactate Dehydrogenase C-Reactive Protein NT-Pro-B Natriuret Pep Total Protein Albumin Arterial Blood Glucose Ur Specific [place] 1.041 H Coronavirus (PCR) 03/09/21 03/09/21 03/09/21 07:46 08:00 13:01 WBC RBC Hgb Hct Seg Neuts % (Manual) Lymphocytes % (Manual) Monocytes % (Manual) Nucleated RBC % Seg Neutrophils # Man Lymphocytes # (Manual) Monocytes # (Manual) PT INR D-Dimer ABG pH POC ABG pCO2 POC ABG pO2 ABG pO2 ABG HCO3 ABG O2 Saturation ABG Base Excess ABG Hemoglobin ABG Oxyhemoglobin ABG Sodium ABG Potassium ABG Glucose Oxyhemoglobin Sodium Potassium Chloride Carbon Dioxide BUN Glucose POC Glucose 191 H 182 H Lactic Acid Magnesium Ferritin Lactate Dehydrogenase C-Reactive Protein NT-Pro-B Natriuret Pep Total Protein Albumin Arterial Blood Glucose Ur Specific [place] Coronavirus (PCR) Positive A 03/09/21 03/09/21 03/09/21 15:19 17:48 18:10 WBC RBC Hgb Hct Seg Neuts % (Manual) Lymphocytes % (Manual) Monocytes % (Manual) Nucleated RBC % Seg Neutrophils # Man Lymphocytes # (Manual) Monocytes # (Manual) PT INR D-Dimer ABG pH POC ABG pCO2 POC ABG pO2 ABG pO2 47.3 L ABG HCO3 26.3 H ABG O2 Saturation 83.7 L ABG Base Excess ABG Hemoglobin ABG Oxyhemoglobin ABG Sodium ABG Potassium ABG Glucose Oxyhemoglobin 82.1 L Sodium Potassium Chloride Carbon Dioxide BUN 29 H Glucose 214 H POC Glucose 194 H Lactic Acid Magnesium Ferritin Lactate Dehydrogenase C-Reactive Protein NT-Pro-B Natriuret Pep Total Protein Albumin 3.4 L Arterial Blood Glucose Ur Specific [place] Coronavirus (PCR) 03/09/21 03/10/21 03/10/21 20:40 04:29 04:29 WBC 20.6 H RBC 5.07 H Hgb Hct 46.2 H Seg Neuts % (Manual) 94.0 H Lymphocytes % (Manual) 1.0 L Monocytes % (Manual) Nucleated RBC % 3.0 H Seg Neutrophils # Man 19.4 H Lymphocytes # (Manual) 0.2 L Monocytes # (Manual) 1.0 H PT INR D-Dimer ABG pH POC ABG pCO2 POC ABG pO2 ABG pO2 ABG HCO3 ABG O2 Saturation ABG Base Excess ABG Hemoglobin ABG Oxyhemoglobin ABG Sodium ABG Potassium ABG Glucose Oxyhemoglobin Sodium Potassium Chloride Carbon Dioxide BUN 29 H Glucose 188 H POC Glucose 176 H Lactic Acid Magnesium Ferritin Lactate Dehydrogenase C-Reactive Protein NT-Pro-B Natriuret Pep Total Protein Albumin 3.3 L Arterial Blood Glucose Ur Specific [place] Coronavirus (PCR) 03/10/21 03/10/21 03/10/21 05:22 10:27 15:25 WBC RBC Hgb Hct Seg Neuts % (Manual) Lymphocytes % (Manual) Monocytes % (Manual) Nucleated RBC % Seg Neutrophils # Man Lymphocytes # (Manual) Monocytes # (Manual) PT INR D-Dimer ABG pH 7.488 H 7.488 H POC ABG pCO2 POC ABG pO2 ABG pO2 47.7 L 50.5 L ABG HCO3 ABG O2 Saturation 86.2 L 87.9 L ABG Base Excess ABG Hemoglobin ABG Oxyhemoglobin ABG Sodium ABG Potassium ABG Glucose Oxyhemoglobin 84.6 L 86.2 L Sodium Potassium Chloride Carbon Dioxide BUN Glucose POC Glucose 155 H Lactic Acid Magnesium Ferritin Lactate Dehydrogenase C-Reactive Protein NT-Pro-B Natriuret Pep Total Protein Albumin Arterial Blood Glucose Ur Specific [place] Coronavirus (PCR) 03/10/21 03/10/21 03/11/21 18:10 18:55 00:07 WBC RBC Hgb Hct Seg Neuts % (Manual) Lymphocytes % (Manual) Monocytes % (Manual) Nucleated RBC % Seg Neutrophils # Man Lymphocytes # (Manual) Monocytes # (Manual) PT INR D-Dimer ABG pH 7.343 L POC ABG pCO2 POC ABG pO2 ABG pO2 60.4 L ABG HCO3 27.9 H ABG O2 Saturation 88.7 L ABG Base Excess ABG Hemoglobin ABG Oxyhemoglobin ABG Sodium ABG Potassium ABG Glucose Oxyhemoglobin 86.9 L Sodium Potassium Chloride Carbon Dioxide BUN Glucose POC Glucose 187 H 139 H Lactic Acid Magnesium Ferritin Lactate Dehydrogenase C-Reactive Protein NT-Pro-B Natriuret Pep Total Protein Albumin Arterial Blood Glucose Ur Specific [place] Coronavirus (PCR) 03/11/21 03/11/21 03/11/21 02:09 04:28 08:06 WBC RBC Hgb Hct Seg Neuts % (Manual) Lymphocytes % (Manual) Monocytes % (Manual) Nucleated RBC % Seg Neutrophils # Man Lymphocytes # (Manual) Monocytes # (Manual) PT INR D-Dimer ABG pH 7.277 L POC ABG pCO2 55.9 H POC ABG pO2 54.4 L ABG pO2 ABG HCO3 ABG O2 Saturation ABG Base Excess ABG Hemoglobin ABG Oxyhemoglobin 83.0 L ABG Sodium ABG Potassium 4.8 H ABG Glucose 180 H Oxyhemoglobin Sodium Potassium Chloride Carbon Dioxide BUN 38 H Glucose 249 H POC Glucose 278 H Lactic Acid Magnesium Ferritin Lactate Dehydrogenase C-Reactive Protein NT-Pro-B Natriuret Pep Total Protein Albumin 3.2 L Arterial Blood Glucose 180 H Ur Specific [place] Coronavirus (PCR) 03/11/21 03/11/21 03/11/21 11:29 15:06 15:48 WBC RBC Hgb Hct Seg Neuts % (Manual) Lymphocytes % (Manual) Monocytes % (Manual) Nucleated RBC % Seg Neutrophils # Man Lymphocytes # (Manual) Monocytes # (Manual) PT INR D-Dimer ABG pH 7.260 L POC ABG pCO2 POC ABG pO2 ABG pO2 53.5 L ABG HCO3 29.5 H ABG O2 Saturation 84.0 L ABG Base Excess ABG Hemoglobin ABG Oxyhemoglobin ABG Sodium ABG Potassium ABG Glucose Oxyhemoglobin 82.3 L Sodium Potassium Chloride Carbon Dioxide BUN Glucose POC Glucose 288 H 295 H Lactic Acid Magnesium Ferritin Lactate Dehydrogenase C-Reactive Protein NT-Pro-B Natriuret Pep Total Protein Albumin Arterial Blood Glucose Ur Specific [place] Coronavirus (PCR) 03/12/21 03/12/21 03/12/21 00:01 05:24 08:03 WBC RBC Hgb Hct Seg Neuts % (Manual) Lymphocytes % (Manual) Monocytes % (Manual) Nucleated RBC % Seg Neutrophils # Man Lymphocytes # (Manual) Monocytes # (Manual) PT INR D-Dimer ABG pH POC ABG pCO2 POC ABG pO2 ABG pO2 ABG HCO3 ABG O2 Saturation ABG Base Excess ABG Hemoglobin ABG Oxyhemoglobin ABG Sodium ABG Potassium ABG Glucose Oxyhemoglobin Sodium 135 L Potassium Chloride Carbon Dioxide BUN 48 H Glucose 358 H POC Glucose 304 H 310 H Lactic Acid Magnesium Ferritin Lactate Dehydrogenase C-Reactive Protein NT-Pro-B Natriuret Pep Total Protein 6.0 L Albumin 2.9 L Arterial Blood Glucose Ur Specific [place] Coronavirus (PCR) 03/12/21 03/12/21 03/12/21 08:03 10:43 11:31 WBC 14.6 H RBC Hgb Hct Seg Neuts % (Manual) Lymphocytes % (Manual) Monocytes % (Manual) Nucleated RBC % Seg Neutrophils # Man Lymphocytes # (Manual) Monocytes # (Manual) PT INR D-Dimer ABG pH 7.248 L POC ABG pCO2 POC ABG pO2 ABG pO2 73.7 L ABG HCO3 32.0 H ABG O2 Saturation 93.9 L ABG Base Excess ABG Hemoglobin ABG Oxyhemoglobin ABG Sodium ABG Potassium ABG Glucose Oxyhemoglobin 92.1 L Sodium Potassium Chloride Carbon Dioxide BUN Glucose POC Glucose 359 H Lactic Acid Magnesium Ferritin Lactate Dehydrogenase C-Reactive Protein NT-Pro-B Natriuret Pep Total Protein Albumin Arterial Blood Glucose Ur Specific [place] Coronavirus (PCR) 03/12/21 03/12/21 03/13/21 17:20 21:54 00:02 WBC RBC Hgb Hct Seg Neuts % (Manual) Lymphocytes % (Manual) Monocytes % (Manual) Nucleated RBC % Seg Neutrophils # Man Lymphocytes # (Manual) Monocytes # (Manual) PT INR D-Dimer ABG pH 7.238 L POC ABG pCO2 71.9 H POC ABG pO2 53.6 L ABG pO2 ABG HCO3 ABG O2 Saturation ABG Base Excess ABG Hemoglobin ABG Oxyhemoglobin 84.8 L ABG Sodium 134.2 L ABG Potassium 4.9 H ABG Glucose 306 H Oxyhemoglobin Sodium Potassium Chloride Carbon Dioxide BUN Glucose POC Glucose 374 H 308 H Lactic Acid Magnesium Ferritin Lactate Dehydrogenase C-Reactive Protein NT-Pro-B Natriuret Pep Total Protein Albumin Arterial Blood Glucose 306 H Ur Specific [place] Coronavirus (PCR) 03/13/21 03/13/21 03/13/21 05:22 05:44 05:44 WBC 13.9 H RBC Hgb Hct Seg Neuts % (Manual) Lymphocytes % (Manual) Monocytes % (Manual) Nucleated RBC % Seg Neutrophils # Man Lymphocytes # (Manual) Monocytes # (Manual) PT INR D-Dimer 3567.97 H ABG pH POC ABG pCO2 POC ABG pO2 ABG pO2 ABG HCO3 ABG O2 Saturation ABG Base Excess ABG Hemoglobin ABG Oxyhemoglobin ABG Sodium ABG Potassium ABG Glucose Oxyhemoglobin Sodium Potassium Chloride Carbon Dioxide BUN Glucose POC Glucose 316 H Lactic Acid Magnesium Ferritin Lactate Dehydrogenase C-Reactive Protein NT-Pro-B Natriuret Pep Total Protein Albumin Arterial Blood Glucose Ur Specific [place] Coronavirus (PCR) 03/13/21 03/13/21 03/13/21 05:44 05:44 11:15 WBC RBC Hgb Hct Seg Neuts % (Manual) Lymphocytes % (Manual) Monocytes % (Manual) Nucleated RBC % Seg Neutrophils # Man Lymphocytes # (Manual) Monocytes # (Manual) PT INR D-Dimer ABG pH 7.310 L POC ABG pCO2 POC ABG pO2 ABG pO2 52.3 L ABG HCO3 34.1 H ABG O2 Saturation 86.8 L ABG Base Excess 5.5 H ABG Hemoglobin 13.8 L ABG Oxyhemoglobin ABG Sodium ABG Potassium ABG Glucose Oxyhemoglobin 85.1 L Sodium Potassium Chloride Carbon Dioxide BUN Glucose POC Glucose Lactic Acid Magnesium Ferritin 858.7 H Lactate Dehydrogenase 348 H C-Reactive Protein 2.80 H NT-Pro-B Natriuret Pep Total Protein Albumin Arterial Blood Glucose Ur Specific [place] Coronavirus (PCR) 03/13/21 03/13/21 03/13/21 11:21 15:47 19:23 WBC RBC Hgb Hct Seg Neuts % (Manual) Lymphocytes % (Manual) Monocytes % (Manual) Nucleated RBC % Seg Neutrophils # Man Lymphocytes # (Manual) Monocytes # (Manual) PT INR D-Dimer ABG pH POC ABG pCO2 POC ABG pO2 ABG pO2 ABG HCO3 ABG O2 Saturation ABG Base Excess ABG Hemoglobin ABG Oxyhemoglobin ABG Sodium ABG Potassium ABG Glucose Oxyhemoglobin Sodium 136 L Potassium 5.9 H Chloride Carbon Dioxide BUN 50 H Glucose 397 H POC Glucose 322 H 317 H Lactic Acid Magnesium Ferritin Lactate Dehydrogenase C-Reactive Protein NT-Pro-B Natriuret Pep Total Protein Albumin Arterial Blood Glucose Ur Specific [place] Coronavirus (PCR) 03/13/21 03/14/21 03/14/21 23:46 05:32 05:50 WBC 11.6 H RBC Hgb Hct Seg Neuts % (Manual) Lymphocytes % (Manual) Monocytes % (Manual) Nucleated RBC % Seg Neutrophils # Man Lymphocytes # (Manual) Monocytes # (Manual) PT INR D-Dimer ABG pH POC ABG pCO2 POC ABG pO2 ABG pO2 ABG HCO3 ABG O2 Saturation ABG Base Excess ABG Hemoglobin ABG Oxyhemoglobin ABG Sodium ABG Potassium ABG Glucose Oxyhemoglobin Sodium Potassium Chloride Carbon Dioxide BUN Glucose POC Glucose 332 H 316 H Lactic Acid Magnesium Ferritin Lactate Dehydrogenase C-Reactive Protein NT-Pro-B Natriuret Pep Total Protein Albumin Arterial Blood Glucose Ur Specific [place] Coronavirus (PCR) 03/14/21 03/14/21 05:50 11:33 WBC RBC Hgb Hct Seg Neuts % (Manual) Lymphocytes % (Manual) Monocytes % (Manual) Nucleated RBC % Seg Neutrophils # Man Lymphocytes # (Manual) Monocytes # (Manual) PT INR D-Dimer ABG pH POC ABG pCO2 POC ABG pO2 ABG pO2 ABG HCO3 ABG O2 Saturation ABG Base Excess ABG Hemoglobin ABG Oxyhemoglobin ABG Sodium ABG Potassium ABG Glucose Oxyhemoglobin Sodium Potassium 5.9 H Chloride Carbon Dioxide 31 H BUN 48 H Glucose 380 H POC Glucose 315 H Lactic Acid Magnesium 3.40 H Ferritin Lactate Dehydrogenase C-Reactive Protein NT-Pro-B Natriuret Pep Total Protein Albumin Arterial Blood Glucose Ur Specific [place] Coronavirus (PCR) Chest x-ray: image reviewed Allied health notes reviewed: RT
[2021-03-14] MEDS: ACETAMINOPHEN 325 MG TAB PO PRN (17:24)
[2021-03-14 18:45] LABS: Hematocrit 43.9 % (35.5-45.6); Hemoglobin 13.9 gm/dl (11.8-15.2)
[2021-03-14 19:03] LABS: BUN/Creatinine Ratio 45; Blood Urea Nitrogen 49 mg/dL (9-20); Calcium 8.8 mg/dL (8.4-10.2); Hemolysis Index 28
[2021-03-15] MEDS: INSULIN REGULAR, HUMAN 100 UNITS/1 ML SUB-Q SCH ×4 (00:12→18:14)
[2021-03-15] MEDS: INSULIN LISPRO 100 UNIT/ML SUB-Q SCH ×4 (00:12→18:14)
[2021-03-15 01:30] LABS: Hematocrit 46.3 % (35.5-45.6); Hemoglobin 14.7 gm/dl (11.8-15.2)
[2021-03-15] MEDS: fentaNYL DRIP Premix 2,000 MCG/100 ML BAG IV SCH ×6 (01:40→23:00)
[2021-03-15] MEDS: methylPREDNISolone Sod Succinate 125 MG/2 ML INJ IV SCH ×3 (05:50→21:58)
[2021-03-15] MEDS: hydrALAZINE 25 MG TAB PO SCH ×3 (05:50→21:57)
[2021-03-15 06:55] LABS: BUN/Creatinine Ratio 46; Blood Urea Nitrogen 46 mg/dL (9-20); Calcium 8.9 mg/dL (8.4-10.2); Hemolysis Index 208
--- NOTE | 2021-03-15 07:16 | Progress Note ---
Assessment and Plan Acute hypoxemic respiratory failure, on MVS COVID-19 infection Bilateral pneumonia Obesity BMI 36 Hypertension Leukocytosis Possible venous thromboembolic phenomena with significantly elevated D-dimers DM II Elevated serum inflammatory markers to include CRP levels, ferritin and LDH Hyperkalemia Treat hyperkalemia with Kayexalate Increase free water flushes to treat hypernatremia Ordered prn IV Midazolam to help treat agitation and improve patient-ventilator synchrony - VAP bundle addressed, aspiration precautions - continue to titrate supplemental oxygen to keep SpO2 88-90% -Lung protective strategies, permissive hypercapnia is acceptable - aspiration precautions - continue bronchodilators with pulmonary hygiene per RT - continue accuchecks with glycemic control per SSI (While critically ill target blood glucose of 140-180 mg/dL; avoid hypoglycemia) - avoid nephrotoxins, renally dose all medications - avoid benzodiazepines, reduce the possibility of delirium - sedation target for RASS 0 to -1 -On Propofol and Fentanyl - prn analgesia per pain score - Maintenance of sleep-wake cycle, avoid delirium - Stress ulcer prophylaxis -Therapeutic anticoagulation- on Enoxaparin - mobility, off loading and frequent turningper facility protocol for pressure ulcer prevention - Monitor hemodynamics closely - continue other care per attending / other consultants COVID SPECIFIC INTERVENTIONS - Remdesivir as per ID/Pulmonary developed protocols - continue systemic steroids for severe COVID-19 infection (Decadron) - Monitor inflammatory markers per facility protocol - ferritin, Ddimer, CRP - therapeutic anticoagulation per system Protocol based on d-dimer and clinical considerations -on therapeutic enoxaparin - Continue contact and airborne isolation CONDITION: CRITICAL PROGNOSIS: GUARDED CODE STATUS: FULL CODE The high probability of a clinically significant, sudden or life-threatening deterioration of the [respiratory, cardiovascular & hematologic] system(s) required my full and direct attention, intervention and personal management. The aggregate critical care time was [35] minutes without overlap. Time includes spent on; [x] Data Review and interpretation [x] Patient assessment and monitoring of vital signs [x] Documentation [x] Medication orders and management Subjective Date of service: 03/15/21 Principal diagnosis: AHRF; COVID-19 infection; DM II; Bilateral pneumonia; Obesity; HTN Interval history: Patient is seen today for: Acute hypoxemic respiratory failure; COVID-19 infection; DM II; Bilateral pneumonia; Obesity; HTN Seen and examined at bedside; 24hour events reviewed; nursing and respiratory care staff consulted; no adverse overnight events reported to me; resting in bed; well sedated; on MVS PEEP +8, FIO2 50%; no emesis or overt aspiration; afebrile On Propofol and Fentanyl. Positive fluid balance , extreme agitation, tachycardia with oxygen desaturations when moved this morning Objective Vital Signs - 12hr 03/14/21 03/14/21 03/14/21 19:30 19:40 20:00 Temperature 98.7 F Pulse Rate 106 H 105 H 109 H Pulse Rate [ 108 H Anterior] Pulse Rate [ 108 H Bilateral Throughout] Pulse Rate [ 107 H From Monitor] Respiratory 25 H 24 Rate Respiratory 25 H Rate [Anterior] Respiratory 25 H Rate [Bilateral Throughout] Blood Pressure 128/86 128/86 133/86 O2 Sat by Pulse 99 100 100 Oximetry 03/14/21 03/14/21 03/14/21 20:30 21:00 21:06 Temperature Pulse Rate 104 H 106 H 108 H Pulse Rate [ Anterior] Pulse Rate [ Bilateral Throughout] Pulse Rate [ From Monitor] Respiratory 24 23 16 Rate Respiratory Rate [Anterior] Respiratory Rate [Bilateral Throughout] Blood Pressure 133/82 126/79 126/79 O2 Sat by Pulse 98 99 98 Oximetry 03/14/21 03/14/21 03/14/21 21:08 21:30 22:00 Temperature Pulse Rate 106 H 111 H 112 H Pulse Rate [ Anterior] Pulse Rate [ Bilateral Throughout] Pulse Rate [ From Monitor] Respiratory 11 L 13 Rate Respiratory Rate [Anterior] Respiratory Rate [Bilateral Throughout] Blood Pressure 126/79 136/89 138/84 O2 Sat by Pulse 98 98 Oximetry 03/14/21 03/14/21 03/14/21 22:30 23:00 23:30 Temperature Pulse Rate 111 H 115 H 118 H Pulse Rate [ Anterior] Pulse Rate [ Bilateral Throughout] Pulse Rate [ From Monitor] Respiratory 15 18 20 Rate Respiratory Rate [Anterior] Respiratory Rate [Bilateral Throughout] Blood Pressure 136/82 130/78 135/78 O2 Sat by Pulse 95 97 97 Oximetry 03/15/21 03/15/21 03/15/21 00:00 00:30 00:34 Temperature Pulse Rate 116 H 114 H 113 H Pulse Rate [ Anterior] Pulse Rate [ Bilateral Throughout] Pulse Rate [ From Monitor] Respiratory 23 14 Rate Respiratory Rate [Anterior] Respiratory Rate [Bilateral Throughout] Blood Pressure 124/76 122/72 122/72 O2 Sat by Pulse 97 99 99 Oximetry 03/15/21 03/15/21 03/15/21 01:00 01:30 02:00 Temperature Pulse Rate 112 H 123 H 121 H Pulse Rate [ Anterior] Pulse Rate [ Bilateral Throughout] Pulse Rate [ From Monitor] Respiratory 19 14 13 Rate Respiratory Rate [Anterior] Respiratory Rate [Bilateral Throughout] Blood Pressure 122/72 147/83 132/78 O2 Sat by Pulse 98 96 98 Oximetry 03/15/21 03/15/21 03/15/21 02:30 03:00 03:30 Temperature Pulse Rate 121 H 121 H 120 H Pulse Rate [ Anterior] Pulse Rate [ Bilateral Throughout] Pulse Rate [ From Monitor] Respiratory 22 25 H 22 Rate Respiratory Rate [Anterior] Respiratory Rate [Bilateral Throughout] Blood Pressure 138/73 133/80 129/74 O2 Sat by Pulse 97 99 98 Oximetry 03/15/21 03/15/21 03/15/21 04:00 04:30 04:43 Temperature Pulse Rate 121 H 115 H 117 H Pulse Rate [ Anterior] Pulse Rate [ Bilateral Throughout] Pulse Rate [ 107 H From Monitor] Respiratory 25 H 23 Rate Respiratory Rate [Anterior] Respiratory Rate [Bilateral Throughout] Blood Pressure 132/74 123/77 123/77 O2 Sat by Pulse 98 99 100 Oximetry 03/15/21 03/15/21 03/15/21 05:00 05:30 05:50 Temperature Pulse Rate 117 H 116 H 117 H Pulse Rate [ Anterior] Pulse Rate [ Bilateral Throughout] Pulse Rate [ From Monitor] Respiratory 23 23 Rate Respiratory Rate [Anterior] Respiratory Rate [Bilateral Throughout] Blood Pressure 136/77 136/75 123/77 O2 Sat by Pulse 99 99 Oximetry 03/15/21 03/15/21 06:00 06:30 Temperature Pulse Rate 110 H 109 H Pulse Rate [ Anterior] Pulse Rate [ Bilateral Throughout] Pulse Rate [ From Monitor] Respiratory 23 25 H Rate Respiratory Rate [Anterior] Respiratory Rate [Bilateral Throughout] Blood Pressure 149/87 122/73 O2 Sat by Pulse 98 99 Oximetry Constitutional: agitated, appears uncomfortable Eyes: non-icteric ENT: oropharynx moist, other (ETT 24 cm CHAITANYA) Neck: supple, no lymphadenopathy, no JVD, other (large circumference) Effort: very labored Ascultation: Bilateral: diminished breath sounds, rhonchi Percussion: Bilateral: not dull Cardiovascular: regular rate and rhythm, other (tachycardia, S1,S2) Gastrointestinal: normoactive bowel sounds, soft, non-tender, non-distended (protuberant) Integumentary: rash Extremities: no cyanosis, pulses normal, no ischemia or petechiae, edema Neurologic: pupils equal and round, unable to assess, other (sedated) Psychiatric: other (unable to assess re: AMS) CBC and BMP: 03/16/21 04:11 03/16/21 04:11 ABG, PT/INR, D-dimer: ABG ABG pH 7.310 pH Units (7.350-7.450) L 03/13/21 11:15 POC ABG pCO2 71.9 mmHg (32.0-48.0) H 03/12/21 21:54 ABG pCO2 69.2 mm Hg 03/13/21 11:15 POC ABG pO2 53.6 mmHg (83-108) L 03/12/21 21:54 ABG pO2 52.3 mm Hg (80.0-90.0) L 03/13/21 11:15 POC ABG HCO3 30.0 03/12/21 21:54 ABG O2 Saturation 86.8 % (95.0-99.0) L 03/13/21 11:15 PT/INR, D-dimer PT 16.1 Sec. (12.2-14.9) H 03/08/21 20:24 INR 1.17 (0.87-1.13) H 03/08/21 20:24 D-Dimer 1781.79 ng/mlDDU (0-234) H 03/15/21 06:06 Abnormal lab findings: Abnormal Labs 03/08/21 03/08/21 03/08/21 20:24 20:24 20:24 WBC 22.6 H RBC 5.44 H Hgb 15.7 H Hct 49.2 H Seg Neuts % (Manual) 83.0 H Lymphocytes % (Manual) 9.0 L Monocytes % (Manual) 8.0 H Nucleated RBC % Seg Neutrophils # Man 18.8 H Lymphocytes # (Manual) Monocytes # (Manual) 1.8 H PT 16.1 H INR 1.17 H D-Dimer > 21231 H ABG pH POC ABG pCO2 POC ABG pO2 ABG pO2 ABG HCO3 ABG O2 Saturation ABG Base Excess ABG Hemoglobin ABG Oxyhemoglobin ABG Sodium ABG Potassium ABG Glucose Oxyhemoglobin Sodium 136 L Potassium Chloride 93.9 L Carbon Dioxide BUN 29 H Glucose 208 H POC Glucose Lactic Acid Phosphorus Magnesium Ferritin Lactate Dehydrogenase 624 H C-Reactive Protein 18.00 H NT-Pro-B Natriuret Pep 1053 H Total Protein Albumin Arterial Blood Glucose Ur Specific [place] Coronavirus (PCR) 03/08/21 03/08/21 03/09/21 20:24 20:24 04:10 WBC RBC Hgb Hct Seg Neuts % (Manual) Lymphocytes % (Manual) Monocytes % (Manual) Nucleated RBC % Seg Neutrophils # Man Lymphocytes # (Manual) Monocytes # (Manual) PT INR D-Dimer ABG pH POC ABG pCO2 POC ABG pO2 ABG pO2 ABG HCO3 ABG O2 Saturation ABG Base Excess ABG Hemoglobin ABG Oxyhemoglobin ABG Sodium ABG Potassium ABG Glucose Oxyhemoglobin Sodium Potassium Chloride Carbon Dioxide BUN Glucose POC Glucose Lactic Acid 2.10 H* Phosphorus Magnesium Ferritin 877.5 H Lactate Dehydrogenase C-Reactive Protein NT-Pro-B Natriuret Pep Total Protein Albumin Arterial Blood Glucose Ur Specific [place] 1.041 H Coronavirus (PCR) 03/09/21 03/09/21 03/09/21 07:46 08:00 13:01 WBC RBC Hgb Hct Seg Neuts % (Manual) Lymphocytes % (Manual) Monocytes % (Manual) Nucleated RBC % Seg Neutrophils # Man Lymphocytes # (Manual) Monocytes # (Manual) PT INR D-Dimer ABG pH POC ABG pCO2 POC ABG pO2 ABG pO2 ABG HCO3 ABG O2 Saturation ABG Base Excess ABG Hemoglobin ABG Oxyhemoglobin ABG Sodium ABG Potassium ABG Glucose Oxyhemoglobin Sodium Potassium Chloride Carbon Dioxide BUN Glucose POC Glucose 191 H 182 H Lactic Acid Phosphorus Magnesium Ferritin Lactate Dehydrogenase C-Reactive Protein NT-Pro-B Natriuret Pep Total Protein Albumin Arterial Blood Glucose Ur Specific [place] Coronavirus (PCR) Positive A 03/09/21 03/09/21 03/09/21 15:19 17:48 18:10 WBC RBC Hgb Hct Seg Neuts % (Manual) Lymphocytes % (Manual) Monocytes % (Manual) Nucleated RBC % Seg Neutrophils # Man Lymphocytes # (Manual) Monocytes # (Manual) PT INR D-Dimer ABG pH POC ABG pCO2 POC ABG pO2 ABG pO2 47.3 L ABG HCO3 26.3 H ABG O2 Saturation 83.7 L ABG Base Excess ABG Hemoglobin ABG Oxyhemoglobin ABG Sodium ABG Potassium ABG Glucose Oxyhemoglobin 82.1 L Sodium Potassium Chloride Carbon Dioxide BUN 29 H Glucose 214 H POC Glucose 194 H Lactic Acid Phosphorus Magnesium Ferritin Lactate Dehydrogenase C-Reactive Protein NT-Pro-B Natriuret Pep Total Protein Albumin 3.4 L Arterial Blood Glucose Ur Specific [place] Coronavirus (PCR) 03/09/21 03/10/21 03/10/21 20:40 04:29 04:29 WBC 20.6 H RBC 5.07 H Hgb Hct 46.2 H Seg Neuts % (Manual) 94.0 H Lymphocytes % (Manual) 1.0 L Monocytes % (Manual) Nucleated RBC % 3.0 H Seg Neutrophils # Man 19.4 H Lymphocytes # (Manual) 0.2 L Monocytes # (Manual) 1.0 H PT INR D-Dimer ABG pH POC ABG pCO2 POC ABG pO2 ABG pO2 ABG HCO3 ABG O2 Saturation ABG Base Excess ABG Hemoglobin ABG Oxyhemoglobin ABG Sodium ABG Potassium ABG Glucose Oxyhemoglobin Sodium Potassium Chloride Carbon Dioxide BUN 29 H Glucose 188 H POC Glucose 176 H Lactic Acid Phosphorus Magnesium Ferritin Lactate Dehydrogenase C-Reactive Protein NT-Pro-B Natriuret Pep Total Protein Albumin 3.3 L Arterial Blood Glucose Ur Specific [place] Coronavirus (PCR) 03/10/21 03/10/21 03/10/21 05:22 10:27 15:25 WBC RBC Hgb Hct Seg Neuts % (Manual) Lymphocytes % (Manual) Monocytes % (Manual) Nucleated RBC % Seg Neutrophils # Man Lymphocytes # (Manual) Monocytes # (Manual) PT INR D-Dimer ABG pH 7.488 H 7.488 H POC ABG pCO2 POC ABG pO2 ABG pO2 47.7 L 50.5 L ABG HCO3 ABG O2 Saturation 86.2 L 87.9 L ABG Base Excess ABG Hemoglobin ABG Oxyhemoglobin ABG Sodium ABG Potassium ABG Glucose Oxyhemoglobin 84.6 L 86.2 L Sodium Potassium Chloride Carbon Dioxide BUN Glucose POC Glucose 155 H Lactic Acid Phosphorus Magnesium Ferritin Lactate Dehydrogenase C-Reactive Protein NT-Pro-B Natriuret Pep Total Protein Albumin Arterial Blood Glucose Ur Specific [place] Coronavirus (PCR) 03/10/21 03/10/21 03/11/21 18:10 18:55 00:07 WBC RBC Hgb Hct Seg Neuts % (Manual) Lymphocytes % (Manual) Monocytes % (Manual) Nucleated RBC % Seg Neutrophils # Man Lymphocytes # (Manual) Monocytes # (Manual) PT INR D-Dimer ABG pH 7.343 L POC ABG pCO2 POC ABG pO2 ABG pO2 60.4 L ABG HCO3 27.9 H ABG O2 Saturation 88.7 L ABG Base Excess ABG Hemoglobin ABG Oxyhemoglobin ABG Sodium ABG Potassium ABG Glucose Oxyhemoglobin 86.9 L Sodium Potassium Chloride Carbon Dioxide BUN Glucose POC Glucose 187 H 139 H Lactic Acid Phosphorus Magnesium Ferritin Lactate Dehydrogenase C-Reactive Protein NT-Pro-B Natriuret Pep Total Protein Albumin Arterial Blood Glucose Ur Specific [place] Coronavirus (PCR) 03/11/21 03/11/21 03/11/21 02:09 04:28 08:06 WBC RBC Hgb Hct Seg Neuts % (Manual) Lymphocytes % (Manual) Monocytes % (Manual) Nucleated RBC % Seg Neutrophils # Man Lymphocytes # (Manual) Monocytes # (Manual) PT INR D-Dimer ABG pH 7.277 L POC ABG pCO2 55.9 H POC ABG pO2 54.4 L ABG pO2 ABG HCO3 ABG O2 Saturation ABG Base Excess ABG Hemoglobin ABG Oxyhemoglobin 83.0 L ABG Sodium ABG Potassium 4.8 H ABG Glucose 180 H Oxyhemoglobin Sodium Potassium Chloride Carbon Dioxide BUN 38 H Glucose 249 H POC Glucose 278 H Lactic Acid Phosphorus Magnesium Ferritin Lactate Dehydrogenase C-Reactive Protein NT-Pro-B Natriuret Pep Total Protein Albumin 3.2 L Arterial Blood Glucose 180 H Ur Specific [place] Coronavirus (PCR) 03/11/21 03/11/21 03/11/21 11:29 15:06 15:48 WBC RBC Hgb Hct Seg Neuts % (Manual) Lymphocytes % (Manual) Monocytes % (Manual) Nucleated RBC % Seg Neutrophils # Man Lymphocytes # (Manual) Monocytes # (Manual) PT INR D-Dimer ABG pH 7.260 L POC ABG pCO2 POC ABG pO2 ABG pO2 53.5 L ABG HCO3 29.5 H ABG O2 Saturation 84.0 L ABG Base Excess ABG Hemoglobin ABG Oxyhemoglobin ABG Sodium ABG Potassium ABG Glucose Oxyhemoglobin 82.3 L Sodium Potassium Chloride Carbon Dioxide BUN Glucose POC Glucose 288 H 295 H Lactic Acid Phosphorus Magnesium Ferritin Lactate Dehydrogenase C-Reactive Protein NT-Pro-B Natriuret Pep Total Protein Albumin Arterial Blood Glucose Ur Specific [place] Coronavirus (PCR) 03/12/21 03/12/21 03/12/21 00:01 05:24 08:03 WBC RBC Hgb Hct Seg Neuts % (Manual) Lymphocytes % (Manual) Monocytes % (Manual) Nucleated RBC % Seg Neutrophils # Man Lymphocytes # (Manual) Monocytes # (Manual) PT INR D-Dimer ABG pH POC ABG pCO2 POC ABG pO2 ABG pO2 ABG HCO3 ABG O2 Saturation ABG Base Excess ABG Hemoglobin ABG Oxyhemoglobin ABG Sodium ABG Potassium ABG Glucose Oxyhemoglobin Sodium 135 L Potassium Chloride Carbon Dioxide BUN 48 H Glucose 358 H POC Glucose 304 H 310 H Lactic Acid Phosphorus Magnesium Ferritin Lactate Dehydrogenase C-Reactive Protein NT-Pro-B Natriuret Pep Total Protein 6.0 L Albumin 2.9 L Arterial Blood Glucose Ur Specific [place] Coronavirus (PCR) 03/12/21 03/12/21 03/12/21 08:03 10:43 11:31 WBC 14.6 H RBC Hgb Hct Seg Neuts % (Manual) Lymphocytes % (Manual) Monocytes % (Manual) Nucleated RBC % Seg Neutrophils # Man Lymphocytes # (Manual) Monocytes # (Manual) PT INR D-Dimer ABG pH 7.248 L POC ABG pCO2 POC ABG pO2 ABG pO2 73.7 L ABG HCO3 32.0 H ABG O2 Saturation 93.9 L ABG Base Excess ABG Hemoglobin ABG Oxyhemoglobin ABG Sodium ABG Potassium ABG Glucose Oxyhemoglobin 92.1 L Sodium Potassium Chloride Carbon Dioxide BUN Glucose POC Glucose 359 H Lactic Acid Phosphorus Magnesium Ferritin Lactate Dehydrogenase C-Reactive Protein NT-Pro-B Natriuret Pep Total Protein Albumin Arterial Blood Glucose Ur Specific [place] Coronavirus (PCR) 03/12/21 03/12/21 03/13/21 17:20 21:54 00:02 WBC RBC Hgb Hct Seg Neuts % (Manual) Lymphocytes % (Manual) Monocytes % (Manual) Nucleated RBC % Seg Neutrophils # Man Lymphocytes # (Manual) Monocytes # (Manual) PT INR D-Dimer ABG pH 7.238 L POC ABG pCO2 71.9 H POC ABG pO2 53.6 L ABG pO2 ABG HCO3 ABG O2 Saturation ABG Base Excess ABG Hemoglobin ABG Oxyhemoglobin 84.8 L ABG Sodium 134.2 L ABG Potassium 4.9 H ABG Glucose 306 H Oxyhemoglobin Sodium Potassium Chloride Carbon Dioxide BUN Glucose POC Glucose 374 H 308 H Lactic Acid Phosphorus Magnesium Ferritin Lactate Dehydrogenase C-Reactive Protein NT-Pro-B Natriuret Pep Total Protein Albumin Arterial Blood Glucose 306 H Ur Specific [place] Coronavirus (PCR) 03/13/21 03/13/21 03/13/21 05:22 05:44 05:44 WBC 13.9 H RBC Hgb Hct Seg Neuts % (Manual) Lymphocytes % (Manual) Monocytes % (Manual) Nucleated RBC % Seg Neutrophils # Man Lymphocytes # (Manual) Monocytes # (Manual) PT INR D-Dimer 3567.97 H ABG pH POC ABG pCO2 POC ABG pO2 ABG pO2 ABG HCO3 ABG O2 Saturation ABG Base Excess ABG Hemoglobin ABG Oxyhemoglobin ABG Sodium ABG Potassium ABG Glucose Oxyhemoglobin Sodium Potassium Chloride Carbon Dioxide BUN Glucose POC Glucose 316 H Lactic Acid Phosphorus Magnesium Ferritin Lactate Dehydrogenase C-Reactive Protein NT-Pro-B Natriuret Pep Total Protein Albumin Arterial Blood Glucose Ur Specific [place] Coronavirus (PCR) 03/13/21 03/13/21 03/13/21 05:44 05:44 11:15 WBC RBC Hgb Hct Seg Neuts % (Manual) Lymphocytes % (Manual) Monocytes % (Manual) Nucleated RBC % Seg Neutrophils # Man Lymphocytes # (Manual) Monocytes # (Manual) PT INR D-Dimer ABG pH 7.310 L POC ABG pCO2 POC ABG pO2 ABG pO2 52.3 L ABG HCO3 34.1 H ABG O2 Saturation 86.8 L ABG Base Excess 5.5 H ABG Hemoglobin 13.8 L ABG Oxyhemoglobin ABG Sodium ABG Potassium ABG Glucose Oxyhemoglobin 85.1 L Sodium Potassium Chloride Carbon Dioxide BUN Glucose POC Glucose Lactic Acid Phosphorus Magnesium Ferritin 858.7 H Lactate Dehydrogenase 348 H C-Reactive Protein 2.80 H NT-Pro-B Natriuret Pep Total Protein Albumin Arterial Blood Glucose Ur Specific [place] Coronavirus (PCR) 03/13/21 03/13/21 03/13/21 11:21 15:47 19:23 WBC RBC Hgb Hct Seg Neuts % (Manual) Lymphocytes % (Manual) Monocytes % (Manual) Nucleated RBC % Seg Neutrophils # Man Lymphocytes # (Manual) Monocytes # (Manual) PT INR D-Dimer ABG pH POC ABG pCO2 POC ABG pO2 ABG pO2 ABG HCO3 ABG O2 Saturation ABG Base Excess ABG Hemoglobin ABG Oxyhemoglobin ABG Sodium ABG Potassium ABG Glucose Oxyhemoglobin Sodium 136 L Potassium 5.9 H Chloride Carbon Dioxide BUN 50 H Glucose 397 H POC Glucose 322 H 317 H Lactic Acid Phosphorus Magnesium Ferritin Lactate Dehydrogenase C-Reactive Protein NT-Pro-B Natriuret Pep Total Protein Albumin Arterial Blood Glucose Ur Specific [place] Coronavirus (PCR) 03/13/21 03/14/21 03/14/21 23:46 05:32 05:50 WBC 11.6 H RBC Hgb Hct Seg Neuts % (Manual) Lymphocytes % (Manual) Monocytes % (Manual) Nucleated RBC % Seg Neutrophils # Man Lymphocytes # (Manual) Monocytes # (Manual) PT INR D-Dimer ABG pH POC ABG pCO2 POC ABG pO2 ABG pO2 ABG HCO3 ABG O2 Saturation ABG Base Excess ABG Hemoglobin ABG Oxyhemoglobin ABG Sodium ABG Potassium ABG Glucose Oxyhemoglobin Sodium Potassium Chloride Carbon Dioxide BUN Glucose POC Glucose 332 H 316 H Lactic Acid Phosphorus Magnesium Ferritin Lactate Dehydrogenase C-Reactive Protein NT-Pro-B Natriuret Pep Total Protein Albumin Arterial Blood Glucose Ur Specific [place] Coronavirus (PCR) 03/14/21 03/14/21 03/14/21 05:50 11:33 16:53 WBC RBC Hgb Hct Seg Neuts % (Manual) Lymphocytes % (Manual) Monocytes % (Manual) Nucleated RBC % Seg Neutrophils # Man Lymphocytes # (Manual) Monocytes # (Manual) PT INR D-Dimer ABG pH POC ABG pCO2 POC ABG pO2 ABG pO2 ABG HCO3 ABG O2 Saturation ABG Base Excess ABG Hemoglobin ABG Oxyhemoglobin ABG Sodium ABG Potassium ABG Glucose Oxyhemoglobin Sodium Potassium 5.9 H Chloride Carbon Dioxide 31 H BUN 48 H Glucose 380 H POC Glucose 315 H 235 H Lactic Acid Phosphorus Magnesium 3.40 H Ferritin Lactate Dehydrogenase C-Reactive Protein NT-Pro-B Natriuret Pep Total Protein Albumin Arterial Blood Glucose Ur Specific [place] Coronavirus (PCR) 03/14/21 03/14/21 03/15/21 18:34 23:27 01:22 WBC RBC Hgb Hct 46.3 H Seg Neuts % (Manual) Lymphocytes % (Manual) Monocytes % (Manual) Nucleated RBC % Seg Neutrophils # Man Lymphocytes # (Manual) Monocytes # (Manual) PT INR D-Dimer ABG pH POC ABG pCO2 POC ABG pO2 ABG pO2 ABG HCO3 ABG O2 Saturation ABG Base Excess ABG Hemoglobin ABG Oxyhemoglobin ABG Sodium ABG Potassium ABG Glucose Oxyhemoglobin Sodium 146 H Potassium Chloride Carbon Dioxide 34 H BUN 49 H Glucose 285 H POC Glucose 203 H Lactic Acid Phosphorus Magnesium Ferritin Lactate Dehydrogenase C-Reactive Protein NT-Pro-B Natriuret Pep Total Protein Albumin Arterial Blood Glucose Ur Specific [place] Coronavirus (PCR) 03/15/21 03/15/21 06:06 06:06 WBC RBC Hgb Hct Seg Neuts % (Manual) Lymphocytes % (Manual) Monocytes % (Manual) Nucleated RBC % Seg Neutrophils # Man Lymphocytes # (Manual) Monocytes # (Manual) PT INR D-Dimer 1781.79 H ABG pH POC ABG pCO2 POC ABG pO2 ABG pO2 ABG HCO3 ABG O2 Saturation ABG Base Excess ABG Hemoglobin ABG Oxyhemoglobin ABG Sodium ABG Potassium ABG Glucose Oxyhemoglobin Sodium 148 H Potassium 5.7 H D Chloride 108.0 H Carbon Dioxide 31 H BUN 46 H Glucose 139 H POC Glucose Lactic Acid Phosphorus 4.80 H D Magnesium 3.00 H Ferritin Lactate Dehydrogenase 630 H C-Reactive Protein NT-Pro-B Natriuret Pep Total Protein Albumin Arterial Blood Glucose Ur Specific [place] Coronavirus (PCR) Chest x-ray: image reviewed Allied health notes reviewed: RT
[2021-03-15] MEDS: IPRATROPIUM/ALBUTEROL SULFATE 3 ML AMPUL.NEB IH SCH ×3 (08:10→19:49)
[2021-03-15] MEDS: BUDESONIDE 0.25 MG/2 ML NEBU IH SCH ×2 (08:10→19:49)
[2021-03-15] MEDS: ARFORMOTEROL 15 MCG/2 ML NEBU IH SCH ×2 (08:10→19:49)
[2021-03-15] MEDS ORDERED: SODIUM POLYSTYRENE 15 GM/60 ML ORAL LIQD PR SCH (08:15)
[2021-03-15] MEDS: ZINC SULFATE 220 MG CAP PO SCH ×2 (09:02→21:59)
[2021-03-15] MEDS: MIDAZOLAM 2 MG/2 ML INJ IV PRN ×3 (09:02→17:56)
[2021-03-15] MEDS: ASCORBIC ACID 500 MG TAB PO SCH ×2 (09:02→21:58)
[2021-03-15] MEDS: FAMOTIDINE 20 MG TAB FEEDTUBE SCH ×2 (09:02→21:58)
[2021-03-15] MEDS: ENOXAPARIN 100 MG/1 ML INJ SUB-Q SCH ×2 (09:02→21:57)
[2021-03-15] MEDS: INSULIN GLARGINE 100 UNITS/ML SUB-Q SCH ×2 (09:03→21:58)
--- NOTE | 2021-03-15 09:17 | XRay Report ---
CHEST 1 VIEW 03/15/2021 8:29 AM INDICATION / CLINICAL INFORMATION: F/U COVID PNA. COMPARISON: One view of the chest from 03/13/2021. FINDINGS: SUPPORT DEVICES: Unchanged. HEART / MEDIASTINUM: Stable. LUNGS / PLEURA: Evolving bilateral airspace opacities are noted with more dense opacity seen along th e mid/lower left lung, improved aeration along the right lung base and increased opacities along the upper right lung. No significant pleural effusion. No pneumothorax. ADDITIONAL FINDINGS: No significant additional findings. IMPRESSION: Evolving bilateral pneumonia as above without other significant interval changes. Signer Name: Sergio Gutierrez MD Signed: 03/15/2021 9:12 AM Workstation Name: [id number]
--- NOTE | 2021-03-15 12:57 | Progress Note ---
Assessment and Plan Cultures: SARS CoV2 PCR: positive 03/08/2021 blood culture: no growth 03/10/2021 sputum culture: Usual respiratory marlyn A/P: 61-year-old male with diabetes, hypertension admitted to the hospital with complaints of shortness of breath and feeling weak for the last 1 week: #Sepsis secondary to bilateral pneumonia: secondary to COVID-19. Elevated inflammatory markers. WBC 22.6, creatinine 1.3, ferritin 877, CRP 18.0, LDH 624, procalcitonin 0.18. D-dimer >10k. CTA negative for pulmonary embolism, severe patchy groundglass opacities. #Acute hypoxic respiratory failure: initially required BiPAP, now intubated, on the vent. #DM #HTN Recs: -D-dimer improved to 1781, CRP improved to 0.8. Continue steroids per pulm, on solumedrol, would not extend beyond 10 days especially since patient also received Actemra. -completed IV remdesivir -s/p Actemra 03/10/2021 -prophylactic anticoagulation based on d-dimer per hospital protocol Sangita Nicole MD, FACP, [facility] ([facility] O: [phone] F: [phone] Subjective Date of service: 03/15/21 Principal diagnosis: AHRF; COVID-19 infection; DM II; Bilateral pneumonia; Obesity; HTN Interval history: Low-grade temperature. Remains on the vent. D-dimer improved to 1781, CRP improved to 0.8 Objective - Exam Narrative Exam: Physical Exam (reviewed in chart to minimize risk of transmission) Constitutional: deferred Head, Ears, Nose: deferred Eyes: deferred Neck: deferred Oral: deferred Cardiovascular: deferred Respiratory: deferred GI: deferred Musculoskeletal: deferred Skin: deferred Hem/Lymphatic: deferred Psych: deferred Neurological: deferred - Constitutional Vitals: Vital Signs Temp Pulse Resp BP Pulse Ox 99.2 F 107 H 25 H 122/86 89 03/15/21 12:00 03/15/21 10:00 03/15/21 10:00 03/15/21 10:00 03/15/21 11:59 Temperature -Last 24 Hours Temperature 99.2 F Temperature 98.8 F Temperature 98.7 F Temperature 100.6 F - Labs CBC & Chem 7: 03/15/21 01:22 03/15/21 06:06 Labs: Abnormal lab results 03/09/21 03/14/21 03/14/21 Range/Units 20:40 16:53 18:34 Hct (35.5-45.6) % D-Dimer (0-234) ng/mlDDU Sodium 146 H (137-145) mmol/L Potassium (3.6-5.0) mmol/L Chloride (98-107) mmol/L Carbon Dioxide 34 H (22-30) mmol/L BUN 49 H (9-20) mg/dL Glucose 285 H (75-100) mg/dL POC Glucose 176 H 235 H (70-105) mg/dL Phosphorus (2.5-4.5) mg/dL Magnesium (1.7-2.3) mg/dL Ferritin (30.0-300.0) ng/mL Lactate Dehydrogenase (91-180) units/L 03/14/21 03/15/21 03/15/21 Range/Units 23:27 01:22 04:00 Hct 46.3 H (35.5-45.6) % D-Dimer (0-234) ng/mlDDU Sodium (137-145) mmol/L Potassium (3.6-5.0) mmol/L Chloride (98-107) mmol/L Carbon Dioxide (22-30) mmol/L BUN (9-20) mg/dL Glucose (75-100) mg/dL POC Glucose 203 H (70-105) mg/dL Phosphorus (2.5-4.5) mg/dL Magnesium (1.7-2.3) mg/dL Ferritin 976.4 H (30.0-300.0) ng/mL Lactate Dehydrogenase (91-180) units/L 03/15/21 03/15/21 03/15/21 Range/Units 06:06 06:06 11:56 Hct (35.5-45.6) % D-Dimer 1781.79 H (0-234) ng/mlDDU Sodium 148 H (137-145) mmol/L Potassium 5.7 H D (3.6-5.0) mmol/L Chloride 108.0 H (98-107) mmol/L Carbon Dioxide 31 H (22-30) mmol/L BUN 46 H (9-20) mg/dL Glucose 139 H (75-100) mg/dL POC Glucose 219 H (70-105) mg/dL Phosphorus 4.80 H D (2.5-4.5) mg/dL Magnesium 3.00 H (1.7-2.3) mg/dL Ferritin (30.0-300.0) ng/mL Lactate Dehydrogenase 630 H (91-180) units/L
[2021-03-15] MEDS: SENNOSIDES/DOCUSATE SODIUM 8.6/50 MG TAB FEEDTUBE SCH ×2 (13:04→21:58)
--- NOTE | 2021-03-15 14:20 | Progress Note ---
<DEBBY ELLISON - Last Filed: 03/16/21 10:42> Assessment and Plan Assessment and plan: This is a 61-year-old male with past medical history of HTN and DM admitted for sepsis and acute hypoxic respiratory failure 2/2 COVID pneumonia requiring ventilatory support. Hospital Course to Date: 03/09: The patient was seen and evaluated today, and he was found to be hemodynamically stable. The patient is currently on BiPAP for possible COVID-19 pneumonia. He was started on Lovenox 1mg/kg for DVT ppx in the setting of d- dimer > 10,000. Infectious Disease was consulted. The patient is pending a TTE. 03/10: No acute events overnight, patient was intubated in the afternoon transferred to ICU 03/11: Patient started on Lantus, free water flushes increased, propofol drip resumed and oral antihypertensive added. 03/12: lantus increased, k at 5, will monitor. I updated his family and his stated that he is not vaccinated. He does have HTN and she will call the RN to update home medications. She did say he takes bystolic and amlopine. She inquired about ventilator and lab work. She had no further questions. 03/13: KVNG overnight. Patient remains hyperglycemic, basal insulin adjusted and increased to Q12hrs. Patient is overall net positive since admit X1 dose of IV lasix, repeat BMP this afternoon. 03/14: Failed SAT this am due to increase agitation, tachycardia and hypertension. Remains on propofol and fentanyl gtt. Hyperkalemia treated with PO kayaxalate. Patient responded to IV lasix yesterday additional dose again today for a net negative balance. Repeat BMP this afternoon. Insulin adjusted for hyperglycemia. 03/15: Remains encephalopathic, not following commansd. Orders placed for CT head/Brain and Neuro consulted. Rectal bleeding subsided, most likely due to hemorrhoids. H&H is stable will continue to monitor. Kayaxexalate for high K, repeat labs 4 to 6hrs post treatment. Assessment and Plan #Neuro:Acute Encephalopathy - Intubated and sedated on propofol and fentanyl, RASS -2 - Titrate sedation for RASS goal of 0 to -1 - Failed SAT, not tolerating sedation wean - CT head/brain pending - Avoid benzodiazepine to reduce the possibility of delirium - Prn analgesia for CPOT greater than 3 - Maintenance of sleep-wake cycle #CV: Hypertension - BP stable this am - 03/09 Echocardiogram shows a mildly dilated ascending aorta, normal LV systolic function, mild concentric LVH, LVEF 60 to 65% - Continue PO Hydralazine - PRN Antihypertensive for SBP above 160 - Continue Blood pressure monitoring per protocol #Acute Hypoxic Respiratory Failure #COVID Pneumonia - Intubated on 03/10 due to worsen hypoxia on BIPAP - COVID swab positive - CXR showed bilateral patchy infiltrates - CT chest shows severe patchy multifocal groundglass airspace disease - Vent setting:PRVC-40%,8,25,450 - AM ABG pending - CCM consulted, appreciate recommendations - Continue IV Steroids and Nebs per [facility] - Additional IV lasix today, plan to keep patient net negative for better lung compliance - VAP bundle addressed - Aspiration precaution HOB above 30 - Daily SBT and SAT trials as tolerated - Daily ABG and CXR - Continue SPO2 monitoring for SPO2 goal above 92% #GI:TF - Continue enteral nutrition - Nutrition consulted - Continue PPI and BR #Hyperkalemia - X1 dose of Kayaxalated today - Repeat BMp ordered - Strict intake and output - Avoid nephrotoxic medications; Renally dose medications - Good in place - Monitor and replace electrolytes as needed -Trend BMP #Elevated D-dimer - Most likely due to COVID - Bilateral lower extremity ultrasounds negative for DVT, superficial thrombus in left gastrocnemius vein - CTA chest shows no gross pulm embolism - H&H stable - Continue AC- Lovenox SubQ - SCDs to BLE while in bed - Transfuse hemoglobin less than 7 - Monitor for signs of bleeding #Sepsis #COVID Pneumonia #Leukocytosis #Lactic Acidosis- Resolved - COVID PCR positive - UA neg, Blood cultures and Sputum culture NGTD - Infectious disease consulted, appreciate recommendation - S/p Actemra 03/10/2021 - Continue IV remdesivir for 5 days - Dexamethasone x10 days - Prophylactic anticoagulation per hospital protocol - Patient remains afebrile, WBCs downstrending - Monitor WBC and temperature curve - Trend CBC #Endo:Hyperglycemia #h/o DM - Patient on IV steroids - Continue high dose SSI Q6hrs - Additional Short acting insulin Q6hrs - Basal insulin increased to BID The high probability of a clinically significant, sudden or life threatening deterioration of the [multi] system(s) required my full and direct attention, intervention and personal management. The aggregate critical care time was [60] minutes. This time is in addition to time spent performing reported procedures but includes the following: [x] Data Review and interpretation [x] Patient assessment and monitoring of vital signs [x] Documentation [x] Medication orders and management Disposition Plan: ICU Total Time Spent with Patient (Minutes): 60 History Interval history: Patient seen and examined at the bedside. Intubated and sedated RASS -2. Agitated this am, not following any commands. X1 dose of IV versed was given and sedation increased. Per RN significant amount of ghanshyam red blood noted rectally with some external hemorrhoids. Hospitalist Physical - Constitutional Vitals: Temp Pulse Resp BP Pulse Ox 99.2 F 108 H 25 H 117/82 92 03/15/21 12:00 03/15/21 13:00 03/15/21 13:00 03/15/21 13:00 03/15/21 13:00 General appearance: Present: mild distress, well-nourished, obese, other (Intubated and sedated) - EENT Eyes: Present: PERRL - Respiratory Respiratory effort: normal - Cardiovascular Rhythm: regular Heart Sounds: Present: S1 & S2 - Extremities Extremities: no ischemia, pulses intact, pulses symmetrical Extremity abnormal: edema - Peripheral Assessment Generalized Edema Type: Non-pitting Edema Degree: 1+ Capillary Refill: < 3 seconds Skin Temperature: Warm Peripheral Pulses: within normal limits - Abdominal General gastrointestinal: soft, non-distended, normal bowel sounds - Integumentary Integumentary: Present: warm, dry - Psychiatric Psychiatric: other (Intubated and sedated) - Neurologic Neurologic: other (Intubated and sedated) - Allied Health Allied health notes reviewed: nursing Results - Labs CBC & Chem 7: 03/16/21 04:11 03/16/21 04:11 Labs: Laboratory Last Values WBC 11.6 K/mm3 (4.5-11.0) H 03/14/21 05:50 RBC 4.53 M/mm3 (3.65-5.03) 03/14/21 05:50 Hgb 14.7 gm/dl (11.8-15.2) 03/15/21 01:22 Hct 46.3 % (35.5-45.6) H 03/15/21 01:22 MCV 92 fl (84-94) 03/14/21 05:50 MCH 30 pg (28-32) 03/14/21 05:50 MCHC 32 % (32-34) 03/14/21 05:50 RDW 14.5 % (13.2-15.2) 03/14/21 05:50 Plt Count 332 K/mm3 (140-440) 03/14/21 05:50 Add Manual Diff Complete 03/10/21 04:29 Total Counted 100 03/10/21 04:29 Seg Neuts % (Manual) 94.0 % (40.0-70.0) H 03/10/21 04:29 Band Neutrophils % 0 % 03/10/21 04:29 Lymphocytes % (Manual) 1.0 % (13.4-35.0) L 03/10/21 04:29 Reactive Lymphs % (Man) 0 % 03/10/21 04:29 Monocytes % (Manual) 5.0 % (0.0-7.3) 03/10/21 04:29 Eosinophils % (Manual) 0 % (0.0-4.3) 03/10/21 04:29 Basophils % (Manual) 0 % (0.0-1.8) 03/10/21 04:29 Metamyelocytes % 0 % 03/10/21 04:29 Myelocytes % 0 % 03/10/21 04:29 Promyelocytes % 0 % 03/10/21 04:29 Blast Cells % 0 % 03/10/21 04:29 Nucleated RBC % 3.0 % (0.0-0.9) H 03/10/21 04:29 Seg Neutrophils # Man 19.4 K/mm3 (1.8-7.7) H 03/10/21 04:29 Band Neutrophils # 0.0 K/mm3 03/10/21 04:29 Lymphocytes # (Manual) 0.2 K/mm3 (1.2-5.4) L 03/10/21 04:29 Abs React Lymphs (Man) 0.0 K/mm3 03/10/21 04:29 Monocytes # (Manual) 1.0 K/mm3 (0.0-0.8) H 03/10/21 04:29 Eosinophils # (Manual) 0.0 K/mm3 (0.0-0.4) 03/10/21 04:29 Basophils # (Manual) 0.0 K/mm3 (0.0-0.1) 03/10/21 04:29 Metamyelocytes # 0.0 K/mm3 03/10/21 04:29 Myelocytes # 0.0 K/mm3 03/10/21 04:29 Promyelocytes # 0.0 K/mm3 03/10/21 04:29 Blast Cells # 0.0 K/mm3 03/10/21 04:29 WBC Morphology Not Reportable 03/10/21 04:29 Hypersegmented Neuts Not Reportable 03/10/21 04:29 Hyposegmented Neuts Not Reportable 03/10/21 04:29 Hypogranular Neuts Not Reportable 03/10/21 04:29 Smudge Cells Not Reportable 03/10/21 04:29 Toxic Granulation Not Reportable 03/10/21 04:29 Toxic Vacuolation Not Reportable 03/10/21 04:29 Dohle Bodies Not Reportable 03/10/21 04:29 Pelger-Huet Anomaly Not Reportable 03/10/21 04:29 Mely Rods Not Reportable 03/10/21 04:29 Platelet Estimate Consistent w auto 03/10/21 04:29 Clumped Platelets Not Reportable 03/10/21 04:29 Plt Clumps, EDTA Not Reportable 03/10/21 04:29 Large Platelets Not Reportable 03/10/21 04:29 Giant Platelets Not Reportable 03/10/21 04:29 Platelet Satelliting Not Reportable 03/10/21 04:29 Plt Morphology Comment Not Reportable 03/10/21 04:29 RBC Morphology Normal 03/10/21 04:29 Dimorphic RBCs Not Reportable 03/10/21 04:29 Polychromasia Not Reportable 03/10/21 04:29 Hypochromasia Not Reportable 03/10/21 04:29 Poikilocytosis Not Reportable 03/10/21 04:29 Anisocytosis Not Reportable 03/10/21 04:29 Microcytosis Not Reportable 03/10/21 04:29 Macrocytosis Not Reportable 03/10/21 04:29 Spherocytes Not Reportable 03/10/21 04:29 Pappenheimer Bodies Not Reportable 03/10/21 04:29 Sickle Cells Not Reportable 03/10/21 04:29 Target Cells Not Reportable 03/10/21 04:29 Tear Drop Cells Not Reportable 03/10/21 04:29 Ovalocytes Not Reportable 03/10/21 04:29 Helmet Cells Not Reportable 03/10/21 04:29 [place] Bodies Not Reportable 03/10/21 04:29 [place] Rings Not Reportable 03/10/21 04:29 [place] Cells Not Reportable 03/10/21 04:29 Bite Cells Not Reportable 03/10/21 04:29 Crenated Cell Not Reportable 03/10/21 04:29 Elliptocytes Not Reportable 03/10/21 04:29 Acanthocytes (Spur) Not Reportable 03/10/21 04:29 Rouleaux Not Reportable 03/10/21 04:29 Hemoglobin C Crystals Not Reportable 03/10/21 04:29 Schistocytes Not Reportable 03/10/21 04:29 Malaria parasites Not Reportable 03/10/21 04:29 [place] Bodies Not Reportable 03/10/21 04:29 Hem Pathologist Commnt No 03/10/21 04:29 PT 16.1 Sec. (12.2-14.9) H 03/08/21 20:24 INR 1.17 (0.87-1.13) H 03/08/21 20:24 APTT 28.0 Sec. (24.2-36.6) 03/08/21 20:24 D-Dimer 1781.79 ng/mlDDU (0-234) H 03/15/21 06:06 ABG pH 7.310 pH Units (7.350-7.450) L 03/13/21 11:15 POC ABG pCO2 71.9 mmHg (32.0-48.0) H 03/12/21 21:54 ABG pCO2 69.2 mm Hg 03/13/21 11:15 POC ABG pO2 53.6 mmHg (83-108) L 03/12/21 21:54 ABG pO2 52.3 mm Hg (80.0-90.0) L 03/13/21 11:15 POC ABG HCO3 30.0 03/12/21 21:54 ABG HCO3 34.1 mmol/L (20.0-26.0) H 03/13/21 11:15 ABG O2 Saturation 86.8 % (95.0-99.0) L 03/13/21 11:15 ABG O2 Content 16.5 (0.0-44) 03/13/21 11:15 POC ABG Base Excess 0.5 03/12/21 21:54 ABG Base Excess 5.5 mmol/L (-2.0-3.0) H 03/13/21 11:15 ABG Hemoglobin 13.8 gm/dl (14.0-18.0) L 03/13/21 11:15 ABG Oxyhemoglobin 84.8 (94-98) L 03/12/21 21:54 ABG Carboxyhemoglobin 1.2 % (0.0-5.0) 03/13/21 11:15 ABG Methemoglobin 0.8 % (0.0-1.5) 03/13/21 11:15 ABG Sodium 134.2 mmol/L (136.0-145.0) L 03/12/21 21:54 ABG Potassium 4.9 mmol/L (3.40-4.50) H 03/12/21 21:54 ABG Chloride 99.0 mmol/L (98-107) 03/12/21 21:54 ABG Glucose 306 mg/dL (65-95) H 03/12/21 21:54 Oxyhemoglobin 85.1 % (95.0-99.0) L 03/13/21 11:15 Carboxyhemoglobin 0.6 (0.5-1.5) 03/12/21 21:54 FiO2 40 % 03/13/21 11:15 FiO2 % 50.0 03/12/21 21:54 Sodium 148 mmol/L (137-145) H 03/15/21 06:06 Potassium 5.7 mmol/L (3.6-5.0) H D 03/15/21 06:06 Chloride 108.0 mmol/L (98-107) H 03/15/21 06:06 Carbon Dioxide 31 mmol/L (22-30) H 03/15/21 06:06 Anion Gap 15 mmol/L 03/15/21 06:06 BUN 46 mg/dL (9-20) H 03/15/21 06:06 Creatinine 1.0 mg/dL (0.8-1.3) 03/15/21 06:06 Estimated GFR > 60 ml/min 03/15/21 06:06 BUN/Creatinine Ratio 46 % 03/15/21 06:06 Glucose 139 mg/dL (75-100) H 03/15/21 06:06 POC Glucose 219 mg/dL (70-105) H 03/15/21 11:56 Lactic Acid 1.90 mmol/L (0.7-2.0) 03/08/21 23:51 Calcium 8.9 mg/dL (8.4-10.2) 03/15/21 06:06 Phosphorus 4.80 mg/dL (2.5-4.5) H D 03/15/21 06:06 Magnesium 3.00 mg/dL (1.7-2.3) H 03/15/21 06:06 Ferritin 976.4 ng/mL (30.0-300.0) H 03/15/21 04:00 Total Bilirubin 0.20 mg/dL (0.1-1.2) 03/12/21 08:03 AST 10 units/L (5-40) 03/12/21 08:03 ALT 16 units/L (7-56) 03/12/21 08:03 Alkaline Phosphatase 77 units/L (35-129) 03/12/21 08:03 Lactate Dehydrogenase 630 units/L (91-180) H 03/15/21 06:06 C-Reactive Protein 0.80 mg/dL (0.00-1.30) 03/15/21 06:06 NT-Pro-B Natriuret Pep 1053 pg/mL (0-900) H 03/08/21 20:24 Total Protein 6.0 g/dL (6.3-8.2) L 03/12/21 08:03 Albumin 2.9 g/dL (3.9-5) L 03/12/21 08:03 Albumin/Globulin Ratio 0.9 % 03/12/21 08:03 Procalcitonin 0.14 ng/mL (<0.15) 03/10/21 09:47 Arterial Blood Glucose 306 mg/dL (65-95) H 03/12/21 21:54 Arterial Blood Ionized Calcium 5.0 mg/dL (4.6-5.3) 03/12/21 21:54 Urine Color Yellow (Yellow) 03/09/21 04:10 Urine Turbidity Slightly-cloudy (Clear) 03/09/21 04:10 Urine pH 5.0 (5.0-7.0) 03/09/21 04:10 Ur Specific [place] 1.041 (1.003-1.030) H 03/09/21 04:10 Urine Protein 100 mg/dl mg/dL (Negative) 03/09/21 04:10 Urine Glucose (UA) Neg mg/dL (Negative) 03/09/21 04:10 Urine Ketones Neg mg/dL (Negative) 03/09/21 04:10 Urine Blood Mod (Negative) 03/09/21 04:10 Urine Nitrite Neg (Negative) 03/09/21 04:10 Urine Bilirubin Neg (Negative) 03/09/21 04:10 Urine Urobilinogen 2.0 mg/dL (<2.0) 03/09/21 04:10 Ur Leukocyte Esterase Neg (Negative) 03/09/21 04:10 Urine WBC (Auto) 4.0 /HPF (0.0-6.0) 03/09/21 04:10 Urine RBC (Auto) 1.0 /HPF (0.0-6.0) 03/09/21 04:10 Urine Bacteria (Auto) 1+ /HPF (Negative) 03/09/21 04:10 Urine Mucus Few /HPF 03/09/21 04:10 Coronavirus (PCR) Positive (Negative) A 03/09/21 08:00 Good/IV: Voiding Method Indwelling Catheter Active Medications - Current Medications Current Medications: Generic Name Dose Route Start Last Admin Trade Name Freq PRN Reason Stop Dose Admin Acetaminophen 650 mg 03/09/21 01:26 03/14/21 17:24 Acetaminophen 325 Mg Tab PO 650 mg Q4H PRN Administration Pain MILD(1-3)/Fever >100.5/RAYO Albuterol 2.5 mg 03/09/21 01:26 Albuterol 2.5 Mg/3 Ml Nebu IH Q4HRT PRN Shortness Of Breath Albuterol/Ipratropium 1 ampul 03/11/21 08:00 03/15/21 08:10 Ipratropium/Albuterol Sulfate 3 Ml Ampul.Neb IH 1 ampul TIDRT BLANCA Administration Arformoterol Tartrate 15 mcg 03/11/21 20:00 03/15/21 08:10 Arformoterol 15 Mcg/2 Ml Nebu IH 15 mcg Q12HRT BLANCA Administration Ascorbic Acid 500 mg 03/10/21 14:00 03/15/21 09:02 Ascorbic Acid 500 Mg Tab PO 500 mg BID BLANCA Administration Budesonide 0.25 mg 03/11/21 20:00 03/15/21 08:10 Budesonide 0.25 Mg/2 Ml Nebu IH 0.25 mg Q12HRT BLANCA Administration Dextrose 0 ml 03/09/21 01:26 Dextrose 50% In Water (25gm) 50 Ml Syringe IV Q30MIN PRN Hypoglycemia Protocol Enoxaparin Sodium 100 mg 03/09/21 10:00 03/15/21 09:02 Enoxaparin 100 Mg/1 Ml Inj SUB-Q 100 mg Q12HR BLANCA Administration Protocol Famotidine 20 mg 03/12/21 22:00 03/15/21 09:02 Famotidine 20 Mg Tab FEEDTUBE 20 mg BID BLANCA Administration Fentanyl 50 mcg 03/10/21 16:47 Fentanyl 100 Mcg/2 Ml Inj IV Q10MIN PRN ANALGESIA Hydralazine HCl 10 mg 03/09/21 01:36 03/10/21 03:56 Hydralazine 20 Mg/1 Ml Inj IV 10 mg Q6H PRN Administration Blood Pressure Hydralazine HCl 50 mg 03/11/21 17:00 03/15/21 05:50 Hydralazine 25 Mg Tab PO 50 mg Q8HR BLANCA Administration Hydrophilic Ointment 1 applic 03/10/21 15:39 Lip Therapy Vaseline TP Q2HR PRN Dry Lips Fentanyl Citrate 2,000 mcg in 100 mls @ 5.897 mls/hr 03/10/21 17:00 03/15/21 10:00 Fentanyl Drip Premix IV 4 mcg/kg/hr TITR BLANCA 23.587 mls/hr Administration Protocol 1 MCG/KG/HR Propofol 1,000 mg in 100 mls @ 3.507 mls/hr 03/11/21 17:00 03/15/21 10:00 Diprivan 10 Mg/Ml IV 35 mcg/kg/min TITR BLANCA 24.549 mls/hr Administration Protocol 5 MCG/KG/MIN Insulin Glargine 25 units 03/14/21 10:00 03/15/21 09:03 Insulin Glargine 100 Units/Ml SUB-Q 25 units BID BLANCA Administration Insulin Human Lispro 0 unit 03/11/21 18:00 03/15/21 12:53 Insulin Lispro 100 Unit/Ml SUB-Q 4 unit Q6HR BLANCA Administration Protocol Insulin Human Regular 5 units 03/14/21 12:00 03/15/21 12:53 Insulin Regular, Human 100 Units/1 Ml SUB-Q 5 units Q6HR BLANCA Administration Labetalol HCl 10 mg 03/12/21 21:13 Labetalol 20 Mg/4 Ml Inj IV Q6H PRN Blood Pressure Methylprednisolone Sodium Succinate 60 mg 03/10/21 22:00 03/15/21 13:03 Methylprednisolone Sod Succinate 125 Mg/2 Ml Inj IV 60 mg Q8HR BLANCA Administration Midazolam HCl 2 mg 03/15/21 08:49 03/15/21 09:02 Midazolam 2 Mg/2 Ml Inj IV 2 mg Q2H PRN Administration VENT SYNCHRONY Multi-Ingred Cream/Lotion/Oil/Oint 1 applic 03/10/21 15:39 Mineral Oil/Petrolatum, White Ophth Oint 3.5 Gm OU Q4HR PRN Dry Eye(s) Ondansetron HCl 4 mg 03/09/21 01:26 Ondansetron 4 Mg/2 Ml Inj IV Q8H PRN Nausea And Vomiting Senna/Docusate Sodium 1 tab 03/10/21 22:00 03/15/21 13:04 Sennosides/Docusate Sodium 8.6/50 Mg Tab FEEDTUBE Not Given BID BLANCA Sodium Chloride 10 ml 03/09/21 10:00 03/15/21 10:04 Sodium Chloride 0.9% 10 Ml Flush Syringe IV 10 ml BID BLANCA Administration Sodium Chloride 10 ml 03/09/21 01:26 Sodium Chloride 0.9% 10 Ml Flush Syringe IV PRN PRN LINE FLUSH Zinc Sulfate 220 mg 03/10/21 14:00 03/15/21 09:02 Zinc Sulfate 220 Mg Cap PO 220 mg BID BLANCA Administration Nutrition/Malnutrition Assess - Dietary Evaluation Nutrition/Malnutrition Findings: Nutrition Notes Start: 03/09/21 08:49 Freq: Status: Active Protocol: Document 03/14/21 10:48 BRYANNA (Rec: 03/14/21 11:07 BRYANNA [id number]) Nutrition Notes Initial or Follow up Brief Note Current Diet TF-Glucerna 1.2 Tyson @ 66 ml/hr (since L 03/14). Height 5 ft 11 in Weight 117 kg [place] Body Weight (kg) 78.18 BMI 35.9 Weight change and time frame No body weight change reported . Weight Status Obese Subjective/Other Information RD consult for TF change requested by RN. RN states that Pt's bG has been high and request a change to Glucerna, since no kidney complications are present. Percent of energy/protein needs met: Prescribed Glucerna 1.2 Tyson @ 66 ml/hr provides for energy/ protein needs (1911 Kcal/96 g) during LOS, 100% Kcal; 75% AA . #1 Nutrition Diagnosis Inadequate oral intake Comments: RN states that Pt's bG has been high and request a change to Glucerna, since no kidney complications are present. Diagnosis Progress(for reassessment Continues documentation) Is patient on ventilator? Yes Is Patient Ambulatory and/or Out of Bed No REE-([facility]-confined to bed) [phone] Calculation Used for Recommendations 70-80% energy needs Additional Notes Energy needs: 8090-5029 kcal/ day Pro needs 1.3g/kg adjBW: 127g/ day Fluid needs 1ml/kcal Nutrition Intervention Nutrition Support: Change to Glucerna 1.2 Tyson @66 ml/hr. Flush: 100 ml water Q 4 hr, or as per MD. Kcal 1,911 Protein (gm) 96 Carbohydrates (gm) 182 Fat (gm) 96 Fluid (mL) 1,282 Fiber (gm) 26 % RDI: 100% Kcal; 75% AA. Goal #1 Provide at least 75% of energy /protein needs through Enteral Feeding during LOS. Follow-Up By: 03/17/21 Additional Comments Continue monitoring TF tolerance and BM. <RAFAEL DOMINGUEZ - Last Filed: 03/18/21 12:14> Assessment and Plan Assessment and plan: I saw and evaluated the patient. Discussed with the nurse practitioner and agree with their findings and plan as documented in this note. Hospitalist Physical - Constitutional Vitals: Temp Pulse Resp BP Pulse Ox 99.0 F 117 H 25 H 185/104 97 03/18/21 07:23 03/18/21 07:46 03/18/21 07:46 03/18/21 07:46 03/18/21 07:46 Results - Labs CBC & Chem 7: 03/18/21 04:50 03/18/21 04:50 Labs: Laboratory Last Values WBC 9.7 K/mm3 (4.5-11.0) 03/18/21 04:50 RBC 4.07 M/mm3 (3.65-5.03) 03/18/21 04:50 Hgb 12.2 gm/dl (11.8-15.2) 03/18/21 04:50 Hct 38.3 % (35.5-45.6) 03/18/21 04:50 MCV 94 fl (84-94) 03/18/21 04:50 MCH 30 pg (28-32) 03/18/21 04:50 MCHC 32 % (32-34) 03/18/21 04:50 RDW 14.9 % (13.2-15.2) 03/18/21 04:50 Plt Count 313 K/mm3 (140-440) 03/18/21 04:50 Lymph % (Auto) 12.6 % (13.4-35.0) L 03/17/21 04:40 [place] % (Auto) 11.3 % (0.0-7.3) H 03/17/21 04:40 Eos % (Auto) 0.4 % (0.0-4.3) 03/17/21 04:40 Baso % (Auto) 0.8 % (0.0-1.8) 03/17/21 04:40 Lymph # (Auto) 1.8 K/mm3 (1.2-5.4) 03/17/21 04:40 [place] # (Auto) 1.6 K/mm3 (0.0-0.8) H 03/17/21 04:40 Eos # (Auto) 0.1 K/mm3 (0.0-0.4) 03/17/21 04:40 Baso # (Auto) 0.1 K/mm3 (0.0-0.1) 03/17/21 04:40 Add Manual Diff Complete 03/10/21 04:29 Total Counted 100 03/10/21 04:29 Seg Neutrophils % 74.9 % (40.0-70.0) H 03/17/21 04:40 Seg Neuts % (Manual) 94.0 % (40.0-70.0) H 03/10/21 04:29 Band Neutrophils % 0 % 03/10/21 04:29 Lymphocytes % (Manual) 1.0 % (13.4-35.0) L 03/10/21 04:29 Reactive Lymphs % (Man) 0 % 03/10/21 04:29 Monocytes % (Manual) 5.0 % (0.0-7.3) 03/10/21 04:29 Eosinophils % (Manual) 0 % (0.0-4.3) 03/10/21 04:29 Basophils % (Manual) 0 % (0.0-1.8) 03/10/21 04:29 Metamyelocytes % 0 % 03/10/21 04:29 Myelocytes % 0 % 03/10/21 04:29 Promyelocytes % 0 % 03/10/21 04:29 Blast Cells % 0 % 03/10/21 04:29 Nucleated RBC % 3.0 % (0.0-0.9) H 03/10/21 04:29 Seg Neutrophils # 10.5 K/mm3 (1.8-7.7) H 03/17/21 04:40 Seg Neutrophils # Man 19.4 K/mm3 (1.8-7.7) H 03/10/21 04:29 Band Neutrophils # 0.0 K/mm3 03/10/21 04:29 Lymphocytes # (Manual) 0.2 K/mm3 (1.2-5.4) L 03/10/21 04:29 Abs React Lymphs (Man) 0.0 K/mm3 03/10/21 04:29 Monocytes # (Manual) 1.0 K/mm3 (0.0-0.8) H 03/10/21 04:29 Eosinophils # (Manual) 0.0 K/mm3 (0.0-0.4) 03/10/21 04:29 Basophils # (Manual) 0.0 K/mm3 (0.0-0.1) 03/10/21 04:29 Metamyelocytes # 0.0 K/mm3 03/10/21 04:29 Myelocytes # 0.0 K/mm3 03/10/21 04:29 Promyelocytes # 0.0 K/mm3 03/10/21 04:29 Blast Cells # 0.0 K/mm3 03/10/21 04:29 WBC Morphology Not Reportable 03/10/21 04:29 Hypersegmented Neuts Not Reportable 03/10/21 04:29 Hyposegmented Neuts Not Reportable 03/10/21 04:29 Hypogranular Neuts Not Reportable 03/10/21 04:29 Smudge Cells Not Reportable 03/10/21 04:29 Toxic Granulation Not Reportable 03/10/21 04:29 Toxic Vacuolation Not Reportable 03/10/21 04:29 Dohle Bodies Not Reportable 03/10/21 04:29 Pelger-Huet Anomaly Not Reportable 03/10/21 04:29 Mely Rods Not Reportable 03/10/21 04:29 Platelet Estimate Consistent w auto 03/10/21 04:29 Clumped Platelets Not Reportable 03/10/21 04:29 Plt Clumps, EDTA Not Reportable 03/10/21 04:29 Large Platelets Not Reportable 03/10/21 04:29 Giant Platelets Not Reportable 03/10/21 04:29 Platelet Satelliting Not Reportable 03/10/21 04:29 Plt Morphology Comment Not Reportable 03/10/21 04:29 RBC Morphology Normal 03/10/21 04:29 Dimorphic RBCs Not Reportable 03/10/21 04:29 Polychromasia Not Reportable 03/10/21 04:29 Hypochromasia Not Reportable 03/10/21 04:29 Poikilocytosis Not Reportable 03/10/21 04:29 Anisocytosis Not Reportable 03/10/21 04:29 Microcytosis Not Reportable 03/10/21 04:29 Macrocytosis Not Reportable 03/10/21 04:29 Spherocytes Not Reportable 03/10/21 04:29 Pappenheimer Bodies Not Reportable 03/10/21 04:29 Sickle Cells Not Reportable 03/10/21 04:29 Target Cells Not Reportable 03/10/21 04:29 Tear Drop Cells Not Reportable 03/10/21 04:29 Ovalocytes Not Reportable 03/10/21 04:29 Helmet Cells Not Reportable 03/10/21 04:29 [place] Bodies Not Reportable 03/10/21 04:29 [place] Rings Not Reportable 03/10/21 04:29 [place] Cells Not Reportable 03/10/21 04:29 Bite Cells Not Reportable 03/10/21 04:29 Crenated Cell Not Reportable 03/10/21 04:29 Elliptocytes Not Reportable 03/10/21 04:29 Acanthocytes (Spur) Not Reportable 03/10/21 04:29 Rouleaux Not Reportable 03/10/21 04:29 Hemoglobin C Crystals Not Reportable 03/10/21 04:29 Schistocytes Not Reportable 03/10/21 04:29 Malaria parasites Not Reportable 03/10/21 04:29 [place] Bodies Not Reportable 03/10/21 04:29 Hem Pathologist Commnt No 03/10/21 04:29 PT 16.1 Sec. (12.2-14.9) H 03/08/21 20:24 INR 1.17 (0.87-1.13) H 03/08/21 20:24 APTT 28.0 Sec. (24.2-36.6) 03/08/21 20:24 D-Dimer 1359.12 ng/mlDDU (0-234) H 03/17/21 04:40 ABG pH 7.386 pH Units (7.350-7.450) 03/18/21 04:18 POC ABG pCO2 71.9 mmHg (32.0-48.0) H 03/12/21 21:54 ABG pCO2 62.2 mm Hg 03/18/21 04:18 POC ABG pO2 53.6 mmHg (83-108) L 03/12/21 21:54 ABG pO2 59.8 mm Hg (80.0-90.0) L 03/18/21 04:18 POC ABG HCO3 30.0 03/12/21 21:54 ABG HCO3 36.5 mmol/L (20.0-26.0) H 03/18/21 04:18 ABG O2 Saturation 90.7 % (95.0-99.0) L 03/18/21 04:18 ABG O2 Content 14.9 (0.0-44) 03/18/21 04:18 POC ABG Base Excess 0.5 03/12/21 21:54 ABG Base Excess 9.4 mmol/L (-2.0-3.0) H 03/18/21 04:18 ABG Hemoglobin 12.0 gm/dl (14.0-18.0) L 03/18/21 04:18 ABG Oxyhemoglobin 84.8 (94-98) L 03/12/21 21:54 ABG Carboxyhemoglobin 1.4 % (0.0-5.0) 03/18/21 04:18 ABG Methemoglobin 0.6 % (0.0-1.5) 03/18/21 04:18 ABG Sodium 134.2 mmol/L (136.0-145.0) L 03/12/21 21:54 ABG Potassium 4.9 mmol/L (3.40-4.50) H 03/12/21 21:54 ABG Chloride 99.0 mmol/L (98-107) 03/12/21 21:54 ABG Glucose 306 mg/dL (65-95) H 03/12/21 21:54 Oxyhemoglobin 88.9 % (95.0-99.0) L 03/18/21 04:18 Carboxyhemoglobin 0.6 (0.5-1.5) 03/12/21 21:54 FiO2 50 % 03/18/21 04:18 FiO2 % 50.0 03/12/21 21:54 Sodium 145 mmol/L (137-145) 03/18/21 04:50 Potassium 4.5 mmol/L (3.6-5.0) 03/18/21 04:50 Chloride 107.2 mmol/L (98-107) H 03/18/21 04:50 Carbon Dioxide 34 mmol/L (22-30) H 03/18/21 04:50 Anion Gap 8 mmol/L 03/18/21 04:50 BUN 38 mg/dL (9-20) H 03/18/21 04:50 Creatinine 0.7 mg/dL (0.8-1.3) L 03/18/21 04:50 Estimated GFR > 60 ml/min 03/18/21 04:50 BUN/Creatinine Ratio 54 % 03/18/21 04:50 Glucose 136 mg/dL (75-100) H 03/18/21 04:50 POC Glucose 189 mg/dL (70-105) H 03/18/21 11:20 Lactic Acid 1.90 mmol/L (0.7-2.0) 03/08/21 23:51 Calcium 8.5 mg/dL (8.4-10.2) 03/18/21 04:50 Phosphorus 4.80 mg/dL (2.5-4.5) H D 03/15/21 06:06 Magnesium 2.70 mg/dL (1.7-2.3) H 03/17/21 04:40 Ferritin 976.4 ng/mL (30.0-300.0) H 03/15/21 04:00 Total Bilirubin 0.20 mg/dL (0.1-1.2) 03/12/21 08:03 AST 10 units/L (5-40) 03/12/21 08:03 ALT 16 units/L (7-56) 03/12/21 08:03 Alkaline Phosphatase 77 units/L (35-129) 03/12/21 08:03 Lactate Dehydrogenase 630 units/L (91-180) H 03/15/21 06:06 C-Reactive Protein 0.40 mg/dL (0.00-1.30) 03/17/21 04:40 NT-Pro-B Natriuret Pep 1053 pg/mL (0-900) H 03/08/21 20:24 Total Protein 6.0 g/dL (6.3-8.2) L 03/12/21 08:03 Albumin 2.9 g/dL (3.9-5) L 03/12/21 08:03 Albumin/Globulin Ratio 0.9 % 03/12/21 08:03 Triglycerides 267 mg/dL (2-149) H 03/16/21 04:11 Procalcitonin 0.05 ng/mL (<0.15) 03/17/21 04:40 Arterial Blood Glucose 306 mg/dL (65-95) H 03/12/21 21:54 Arterial Blood Ionized Calcium 5.0 mg/dL (4.6-5.3) 03/12/21 21:54 Urine Color Yellow (Yellow) 03/09/21 04:10 Urine Turbidity Slightly-cloudy (Clear) 03/09/21 04:10 Urine pH 5.0 (5.0-7.0) 03/09/21 04:10 Ur Specific [place] 1.041 (1.003-1.030) H 03/09/21 04:10 Urine Protein 100 mg/dl mg/dL (Negative) 03/09/21 04:10 Urine Glucose (UA) Neg mg/dL (Negative) 03/09/21 04:10 Urine Ketones Neg mg/dL (Negative) 03/09/21 04:10 Urine Blood Mod (Negative) 03/09/21 04:10 Urine Nitrite Neg (Negative) 03/09/21 04:10 Urine Bilirubin Neg (Negative) 03/09/21 04:10 Urine Urobilinogen 2.0 mg/dL (<2.0) 03/09/21 04:10 Ur Leukocyte Esterase Neg (Negative) 03/09/21 04:10 Urine WBC (Auto) 4.0 /HPF (0.0-6.0) 03/09/21 04:10 Urine RBC (Auto) 1.0 /HPF (0.0-6.0) 03/09/21 04:10 Urine Bacteria (Auto) 1+ /HPF (Negative) 03/09/21 04:10 Urine Mucus Few /HPF 03/09/21 04:10 Coronavirus (PCR) Positive (Negative) A 03/09/21 08:00 Microbiology: Microbiology 03/17/21 14:27 Tracheal Aspirate Sputum Culture - Preliminary 03/16/21 13:51 Peripheral/Venous Blood Culture - Preliminary NO GROWTH AFTER 24 HOURS 03/16/21 13:51 Peripheral/Venous Blood Culture - Preliminary NO GROWTH AFTER 24 HOURS Good/IV: Voiding Method Indwelling Catheter Active Medications - Current Medications Current Medications: Generic Name Dose Route Start Last Admin Trade Name Freq PRN Reason Stop Dose Admin Acetaminophen 650 mg 03/09/21 01:26 03/17/21 12:08 Acetaminophen 325 Mg Tab PO 650 mg Q4H PRN Administration Pain MILD(1-3)/Fever >100.5/RAYO Albuterol 2.5 mg 03/09/21 01:26 Albuterol 2.5 Mg/3 Ml Nebu IH Q4HRT PRN Shortness Of Breath Albuterol/Ipratropium 1 ampul 03/11/21 08:00 03/18/21 07:47 Ipratropium/Albuterol Sulfate 3 Ml Ampul.Neb IH 1 ampul TIDRT BLANCA Administration Arformoterol Tartrate 15 mcg 03/11/21 20:00 03/18/21 07:47 Arformoterol 15 Mcg/2 Ml Nebu IH 15 mcg Q12HRT BLANCA Administration Ascorbic Acid 500 mg 03/10/21 14:00 03/18/21 10:45 Ascorbic Acid 500 Mg Tab PO 500 mg BID BLANCA Administration Budesonide 0.25 mg 03/11/21 20:00 03/18/21 07:46 Budesonide 0.25 Mg/2 Ml Nebu IH 0.25 mg Q12HRT BLANCA Administration Dextrose 0 ml 03/09/21 01:26 Dextrose 50% In Water (25gm) 50 Ml Syringe IV Q30MIN PRN Hypoglycemia Protocol Enoxaparin Sodium 100 mg 03/09/21 10:00 03/18/21 10:46 Enoxaparin 100 Mg/1 Ml Inj SUB-Q 100 mg Q12HR BLANCA Administration Protocol Famotidine 20 mg 03/12/21 22:00 03/18/21 10:45 Famotidine 20 Mg Tab FEEDTUBE 20 mg BID BLANCA Administration Fentanyl 50 mcg 03/10/21 16:47 Fentanyl 100 Mcg/2 Ml Inj IV Q10MIN PRN ANALGESIA Hydralazine HCl 10 mg 03/09/21 01:36 03/10/21 03:56 Hydralazine 20 Mg/1 Ml Inj IV 10 mg Q6H PRN Administration Blood Pressure Hydralazine HCl 50 mg 03/11/21 17:00 03/18/21 06:24 Hydralazine 25 Mg Tab PO 50 mg Q8HR BLANCA Administration Hydrophilic Ointment 1 applic 03/10/21 15:39 Lip Therapy Vaseline TP Q2HR PRN Dry Lips Fentanyl Citrate 2,000 mcg in 100 mls @ 5.897 mls/hr 03/10/21 17:00 03/18/21 10:42 Fentanyl Drip Premix IV 4 mcg/kg/hr TITR BLANCA 23.587 mls/hr Administration Protocol 1 MCG/KG/HR Propofol 1,000 mg in 100 mls @ 3.507 mls/hr 03/11/21 17:00 03/18/21 10:41 Diprivan 10 Mg/Ml IV 50 mcg/kg/min TITR BLANCA 35.07 mls/hr Titration Protocol 5 MCG/KG/MIN Vancomycin HCl 1,750 mg/ 535 mls @ 333 mls/hr 03/16/21 22:00 03/18/21 10:45 Sodium Chloride IV 333 mls/hr Q12HR BLANCA Administration Protocol Cefepime HCl 2 gm in 100 mls @ 200 mls/hr 03/16/21 17:00 03/18/21 06:24 Cefepime/Ns 2 Gm/100 Ml IV 200 mls/hr Q8HR BLANCA Administration Protocol Insulin Glargine 25 units 03/14/21 10:00 03/18/21 10:46 Insulin Glargine 100 Units/Ml SUB-Q 25 units BID BLANCA Administration Insulin Human Lispro 0 unit 03/11/21 18:00 03/18/21 06:15 Insulin Lispro 100 Unit/Ml SUB-Q Not Given Q6HR [facility] Protocol Insulin Human Regular 5 units 03/14/21 12:00 03/18/21 06:24 Insulin Regular, Human 100 Units/1 Ml SUB-Q 5 units Q6HR BLANCA Administration Labetalol HCl 10 mg 03/12/21 21:13 Labetalol 20 Mg/4 Ml Inj IV Q6H PRN Blood Pressure Methylprednisolone Sodium Succinate 60 mg 03/10/21 22:00 03/18/21 06:23 Methylprednisolone Sod Succinate 125 Mg/2 Ml Inj IV 03/20/21 14:01 60 mg Q8HR BLANCA Administration Midazolam HCl 2 mg 03/15/21 08:49 03/17/21 10:45 Midazolam 2 Mg/2 Ml Inj IV 2 mg Q2H PRN Administration VENT SYNCHRONY Multi-Ingred Cream/Lotion/Oil/Oint 1 applic 03/10/21 15:39 Mineral Oil/Petrolatum, White Ophth Oint 3.5 Gm OU Q4HR PRN Dry Eye(s) Ondansetron HCl 4 mg 03/09/21 01:26 Ondansetron 4 Mg/2 Ml Inj IV Q8H PRN Nausea And Vomiting Quetiapine Fumarate 100 mg 03/17/21 14:00 03/18/21 10:45 Quetiapine 100 Mg Tab PO 100 mg BID BLANCA Administration Senna/Docusate Sodium 1 tab 03/10/21 22:00 03/17/21 21:00 Sennosides/Docusate Sodium 8.6/50 Mg Tab FEEDTUBE 1 tab BID BLANCA Administration Sodium Chloride 10 ml 03/09/21 10:00 03/18/21 10:51 Sodium Chloride 0.9% 10 Ml Flush Syringe IV 10 ml BID BLANCA Administration Sodium Chloride 10 ml 03/09/21 01:26 Sodium Chloride 0.9% 10 Ml Flush Syringe IV PRN PRN LINE FLUSH Zinc Sulfate 220 mg 03/10/21 14:00 03/18/21 10:45 Zinc Sulfate 220 Mg Cap PO 220 mg BID BLANCA Administration Nutrition/Malnutrition Assess - Dietary Evaluation Nutrition/Malnutrition Findings: Nutrition Notes Start: 03/09/21 08:49 Freq: Status: Active Protocol: Document 03/17/21 15:48 NHLEANN (Rec: 03/17/21 15:55 NHALL [id number]) Nutrition Notes Initial or Follow up Reassessment Current Diagnosis Diabetes,Sepsis,Hypertension, Respiratory Failure Other Pertinent Diagnosis COVID-19 pneu Current Diet TF-Glucerna 1.2 Tyson at 66 ml/ hr Labs/Tests POC Glu range: 162-263 Na 148 BUN 42 BG 183 Mg 2.7 Pertinent Medications Propofol at 31.563ml/hr ( provides 833 kcal) Height 5 ft 11 in Weight 117 kg [place] Body Weight (kg) 78.18 BMI 35.9 Weight Status Obese Subjective/Other Information Pt remains on vent support. Pt receiving a lot of calories from propofol at this time. Will decrease TF rate to prevent overfeeding. Pt with a low-grade fever. Burn Absent Trauma Absent Minimum of two criteria No #1 Nutrition Diagnosis Inadequate oral intake Diagnosis Progress(for reassessment Continues documentation) Is patient on ventilator? Yes Is Patient Ambulatory and/or Out of Bed No REE-([facility]-confined to bed) [phone] Calculation Used for Recommendations 70-80% energy needs Additional Notes Energy needs: 1137-1617 kcal/ day Pro needs 1.3g/kg adjBW: 127g/ day Fluid needs 1ml/kcal Nutrition Intervention Nutrition Support: Decrease TF rate to Glucerna 1 .2 at 40ml/hr with 200ml water flush q4h (until hypernatremia resolved). TF + propofol will provide 1985 kcal. Kcal 1,152 Protein (gm) 58 Carbohydrates (gm) 110 Fat (gm) 58 Fluid (mL) 773 Fiber (gm) 15 Goal #1 TF tolerance Goal #2 TF to meet nutrient needs as best possible Follow-Up By: 03/20/21 Additional Comments F/U: TF rate/tolerance, propofol rate, vent status
[2021-03-15 14:43] LABS: ABG Base Excess 9.5 mmol/L (-2.0-3.0); ABG HCO3 36.6 mmol/L (20.0-26.0); ABG Methemoglobin 0.8 % (0.0-1.5); ABG Oxygen Saturation 87.6 % (95.0-99.0); ABG PCO2 59.1 mm Hg; ABG PH 7.41 pH Units (7.350-7.450); ABG PO2 52.1 mm Hg (80.0-90.0)
[2021-03-15 15:43] LABS: Hematocrit 44.6 % (35.5-45.6); Hemoglobin 14.3 gm/dl (11.8-15.2)
--- NOTE | 2021-03-16 00:09 | Cat Scan Report ---
CT HEAD WITHOUT CONTRAST INDICATION / CLINICAL INFORMATION: Encephalopathy. TECHNIQUE: All CT scans at this location are performed using CT dose reduction for ALARA by means of automated exposure control. COMPARISON: None available. FINDINGS: HEMORRHAGE: None. EXTRA-AXIAL SPACES: Normal in size and morphology for the patient's age. VENTRICULAR SYSTEM: Normal in size and morphology for the patient's age. CEREBRAL PARENCHYMA: No significant abnormality. No acute territorial infarct. MIDLINE SHIFT / HERNIATION: None. CEREBELLUM / BRAINSTEM: No significant abnormality. ORBITS: Normal as visualized. SOFT TISSUES: No significant abnormality. SKULL: No significant abnormality. PARANASAL SINUSES / MASTOID AIR CELLS: Normal as visualized. ADDITIONAL FINDINGS: None. IMPRESSION: 1. No acute intracranial abnormality. Signer Name: Judie Diaz MD Signed: 03/16/2021 12:04 AM Workstation Name: [id number]
[2021-03-16] MEDS: MIDAZOLAM 2 MG/2 ML INJ IV PRN ×2 (00:22→02:26)
[2021-03-16] MEDS: INSULIN LISPRO 100 UNIT/ML SUB-Q SCH ×4 (01:06→17:30)
[2021-03-16] MEDS: INSULIN REGULAR, HUMAN 100 UNITS/1 ML SUB-Q SCH ×4 (01:07→17:30)
[2021-03-16] MEDS ORDERED: METOPROLOL TARTRATE 5 MG/5 ML INJ IV ONE (02:21)
[2021-03-16] MEDS: fentaNYL DRIP Premix 2,000 MCG/100 ML BAG IV SCH ×4 (03:40→17:30)
[2021-03-16 05:33] LABS: Mean Corpuscular HGB Conc 30 % (32-34); Mean Corpuscular Volume 93 fl (84-94); Platelet Count 335 K/mm3 (140-440); Red Blood Count 4.78 M/mm3 (3.65-5.03)
[2021-03-16 05:35] LABS: Hematocrit 44.5 % (35.5-45.6); Hemoglobin 13.5 gm/dl (11.8-15.2)
[2021-03-16] MEDS: methylPREDNISolone Sod Succinate 125 MG/2 ML INJ IV SCH ×3 (05:39→22:29)
[2021-03-16] MEDS: hydrALAZINE 25 MG TAB PO SCH ×3 (05:39→22:33)
[2021-03-16 05:46] LABS: BUN/Creatinine Ratio 53; Blood Urea Nitrogen 48 mg/dL (9-20); Calcium 8.6 mg/dL (8.4-10.2); Hemolysis Index 21
[2021-03-16] MEDS: IPRATROPIUM/ALBUTEROL SULFATE 3 ML AMPUL.NEB IH SCH ×2 (07:51→23:40)
--- NOTE | 2021-03-16 08:05 | Progress Note ---
Assessment and Plan Acute hypoxemic respiratory failure, on MVS COVID-19 infection Bilateral pneumonia Obesity BMI 36 Hypertension Leukocytosis Possible venous thromboembolic phenomena with significantly elevated D-dimers DM II Elevated serum inflammatory markers to include CRP levels, ferritin and LDH Hyperkalemia Get tracheal cultures, start Vancomycin and Cefepime empirically- patient has worsening infiltrates on imaging, fevers, and increasing vent requirements ABG in am, CXR in am Get Fungitell Await further ID recommendations - VAP bundle addressed, aspiration precautions - continue to titrate supplemental oxygen to keep SpO2 88-90% -Lung protective strategies - aspiration precautions - continue bronchodilators with pulmonary hygiene per RT - continue accuchecks with glycemic control per SSI (While critically ill target blood glucose of 140-180 mg/dL; avoid hypoglycemia) - avoid nephrotoxins, renally dose all medications - avoid benzodiazepines, reduce the possibility of delirium - sedation target for RASS -1 to -2 -On Propofol and Fentanyl - prn analgesia per pain score - Maintenance of sleep-wake cycle, avoid delirium - Stress ulcer prophylaxis -Therapeutic anticoagulation- on Enoxaparin - mobility, off loading and frequent turning per facility protocol for pressure ulcer prevention - Monitor hemodynamics closely - continue other care per attending / other consultants COVID SPECIFIC INTERVENTIONS - Remdesivir as per ID/Pulmonary developed protocols - continue systemic steroids for severe COVID-19 infection (Decadron) - Monitor inflammatory markers per facility protocol - ferritin, Ddimer, CRP - therapeutic anticoagulation per system Protocol based on d-dimer and clinical considerations -on therapeutic enoxaparin - Continue contact and airborne isolation CONDITION: CRITICAL PROGNOSIS: GUARDED CODE STATUS: FULL CODE The high probability of a clinically significant, sudden or life-threatening deterioration of the [respiratory, cardiovascular & hematologic] system(s) required my full and direct attention, intervention and personal management. The aggregate critical care time was [35] minutes without overlap. Time includes spent on; [x] Data Review and interpretation [x] Patient assessment and monitoring of vital signs [x] Documentation [x] Medication orders and management Subjective Date of service: 03/16/21 Principal diagnosis: AHRF; COVID-19 infection; DM II; Bilateral pneumonia; Obesity; HTN Interval history: Patient is seen today for: Acute hypoxemic respiratory failure; COVID-19 infection; DM II; Bilateral pneumonia; Obesity; HTN Seen and examined at bedside; 24hour events reviewed; nursing and respiratory care staff consulted; no adverse overnight events reported to me; resting in bed; well sedated; on MVS PEEP +8, FIO2 50%; no emesis or overt aspiration; On Propofol and Fentanyl. extreme agitation, tachycardia with oxygen desaturations when moved this morning and fevers Objective Vital Signs - 12hr 03/15/21 03/15/21 03/15/21 20:30 21:00 21:39 Temperature Pulse Rate 113 H 110 H 110 H Pulse Rate [ Anterior] Pulse Rate [ From Monitor] Respiratory 12 15 17 Rate Respiratory Rate [Anterior] Blood Pressure 126/73 124/77 121/80 O2 Sat by Pulse 94 93 96 Oximetry 03/15/21 03/15/21 03/15/21 21:40 21:57 22:00 Temperature Pulse Rate 108 H 111 H 110 H Pulse Rate [ Anterior] Pulse Rate [ From Monitor] Respiratory 17 27 H Rate Respiratory Rate [Anterior] Blood Pressure 128/75 128/75 121/80 O2 Sat by Pulse 96 90 Oximetry 03/15/21 03/15/21 03/15/21 22:30 23:00 23:30 Temperature Pulse Rate 111 H 111 H 111 H Pulse Rate [ Anterior] Pulse Rate [ From Monitor] Respiratory 18 14 17 Rate Respiratory Rate [Anterior] Blood Pressure 117/72 125/71 106/70 O2 Sat by Pulse 91 91 88 Oximetry 03/16/21 03/16/21 03/16/21 00:00 00:01 00:31 Temperature 100.7 F H Pulse Rate 114 H 114 H 136 H Pulse Rate [ Anterior] Pulse Rate [ 107 H From Monitor] Respiratory 25 H 13 14 Rate Respiratory Rate [Anterior] Blood Pressure 103/73 103/73 116/70 O2 Sat by Pulse 91 93 90 Oximetry 03/16/21 03/16/21 03/16/21 01:01 01:30 02:01 Temperature Pulse Rate 140 H 136 H 135 H Pulse Rate [ Anterior] Pulse Rate [ From Monitor] Respiratory 31 H 20 20 Rate Respiratory Rate [Anterior] Blood Pressure 193/108 134/95 131/89 O2 Sat by Pulse 91 90 90 Oximetry 03/16/21 03/16/21 03/16/21 02:27 02:30 03:00 Temperature Pulse Rate 140 H 114 H 114 H Pulse Rate [ Anterior] Pulse Rate [ From Monitor] Respiratory 18 24 Rate Respiratory Rate [Anterior] Blood Pressure 193/108 111/65 116/65 O2 Sat by Pulse 89 92 Oximetry 03/16/21 03/16/21 03/16/21 03:30 03:37 04:00 Temperature 100.9 F H Pulse Rate 115 H 115 H Pulse Rate [ Anterior] Pulse Rate [ 107 H From Monitor] Respiratory 16 23 Rate Respiratory Rate [Anterior] Blood Pressure 109/66 111/66 O2 Sat by Pulse 93 94 Oximetry 03/16/21 03/16/21 03/16/21 04:28 04:30 05:00 Temperature Pulse Rate 112 H 112 H 112 H Pulse Rate [ Anterior] Pulse Rate [ From Monitor] Respiratory 11 L 25 H Rate Respiratory Rate [Anterior] Blood Pressure 111/68 111/68 117/64 O2 Sat by Pulse 92 92 91 Oximetry 03/16/21 03/16/21 03/16/21 05:30 05:39 06:00 Temperature Pulse Rate 114 H 112 H 113 H Pulse Rate [ Anterior] Pulse Rate [ From Monitor] Respiratory 11 L 22 Rate Respiratory Rate [Anterior] Blood Pressure 128/78 111/68 124/68 O2 Sat by Pulse 93 92 Oximetry 03/16/21 03/16/21 07:07 07:51 Temperature Pulse Rate 112 H Pulse Rate [ 115 H Anterior] Pulse Rate [ From Monitor] Respiratory Rate Respiratory 25 H Rate [Anterior] Blood Pressure 113/75 O2 Sat by Pulse 91 Oximetry Constitutional: agitated, appears uncomfortable Eyes: non-icteric ENT: oropharynx moist, other (ETT 24 cm CHAITANYA) Neck: supple, no lymphadenopathy, no JVD, other (large circumference) Effort: very labored Ascultation: Bilateral: diminished breath sounds, rhonchi Percussion: Bilateral: not dull Cardiovascular: regular rate and rhythm, other (tachycardia, S1,S2) Gastrointestinal: normoactive bowel sounds, soft, non-tender, non-distended (protuberant) Integumentary: rash Extremities: no cyanosis, pulses normal, no ischemia or petechiae, edema Neurologic: pupils equal and round, unable to assess, other (sedated) Psychiatric: other (unable to assess re: AMS) CBC and BMP: 03/16/21 04:11 03/16/21 04:11 ABG, PT/INR, D-dimer: ABG ABG pH 7.410 pH Units (7.350-7.450) 03/15/21 14:05 POC ABG pCO2 71.9 mmHg (32.0-48.0) H 03/12/21 21:54 ABG pCO2 59.1 mm Hg 03/15/21 14:05 POC ABG pO2 53.6 mmHg (83-108) L 03/12/21 21:54 ABG pO2 52.1 mm Hg (80.0-90.0) L 03/15/21 14:05 POC ABG HCO3 30.0 03/12/21 21:54 ABG O2 Saturation 87.6 % (95.0-99.0) L 03/15/21 14:05 PT/INR, D-dimer PT 16.1 Sec. (12.2-14.9) H 03/08/21 20:24 INR 1.17 (0.87-1.13) H 03/08/21 20:24 D-Dimer 1781.79 ng/mlDDU (0-234) H 03/15/21 06:06 Abnormal lab findings: Abnormal Labs 03/08/21 03/08/21 03/08/21 20:24 20:24 20:24 WBC 22.6 H RBC 5.44 H Hgb 15.7 H Hct 49.2 H MCHC Seg Neuts % (Manual) 83.0 H Lymphocytes % (Manual) 9.0 L Monocytes % (Manual) 8.0 H Nucleated RBC % Seg Neutrophils # Man 18.8 H Lymphocytes # (Manual) Monocytes # (Manual) 1.8 H PT 16.1 H INR 1.17 H D-Dimer > 19765 H ABG pH POC ABG pCO2 POC ABG pO2 ABG pO2 ABG HCO3 ABG O2 Saturation ABG Base Excess ABG Hemoglobin ABG Oxyhemoglobin ABG Sodium ABG Potassium ABG Glucose Oxyhemoglobin Sodium 136 L Potassium Chloride 93.9 L Carbon Dioxide BUN 29 H Glucose 208 H POC Glucose Lactic Acid Phosphorus Magnesium Ferritin Lactate Dehydrogenase 624 H C-Reactive Protein 18.00 H NT-Pro-B Natriuret Pep 1053 H Total Protein Albumin Triglycerides Arterial Blood Glucose Ur Specific [place] Coronavirus (PCR) 03/08/21 03/08/21 03/09/21 20:24 20:24 04:10 WBC RBC Hgb Hct MCHC Seg Neuts % (Manual) Lymphocytes % (Manual) Monocytes % (Manual) Nucleated RBC % Seg Neutrophils # Man Lymphocytes # (Manual) Monocytes # (Manual) PT INR D-Dimer ABG pH POC ABG pCO2 POC ABG pO2 ABG pO2 ABG HCO3 ABG O2 Saturation ABG Base Excess ABG Hemoglobin ABG Oxyhemoglobin ABG Sodium ABG Potassium ABG Glucose Oxyhemoglobin Sodium Potassium Chloride Carbon Dioxide BUN Glucose POC Glucose Lactic Acid 2.10 H* Phosphorus Magnesium Ferritin 877.5 H Lactate Dehydrogenase C-Reactive Protein NT-Pro-B Natriuret Pep Total Protein Albumin Triglycerides Arterial Blood Glucose Ur Specific [place] 1.041 H Coronavirus (PCR) 03/09/21 03/09/21 03/09/21 07:46 08:00 13:01 WBC RBC Hgb Hct MCHC Seg Neuts % (Manual) Lymphocytes % (Manual) Monocytes % (Manual) Nucleated RBC % Seg Neutrophils # Man Lymphocytes # (Manual) Monocytes # (Manual) PT INR D-Dimer ABG pH POC ABG pCO2 POC ABG pO2 ABG pO2 ABG HCO3 ABG O2 Saturation ABG Base Excess ABG Hemoglobin ABG Oxyhemoglobin ABG Sodium ABG Potassium ABG Glucose Oxyhemoglobin Sodium Potassium Chloride Carbon Dioxide BUN Glucose POC Glucose 191 H 182 H Lactic Acid Phosphorus Magnesium Ferritin Lactate Dehydrogenase C-Reactive Protein NT-Pro-B Natriuret Pep Total Protein Albumin Triglycerides Arterial Blood Glucose Ur Specific [place] Coronavirus (PCR) Positive A 03/09/21 03/09/21 03/09/21 15:19 17:48 18:10 WBC RBC Hgb Hct MCHC Seg Neuts % (Manual) Lymphocytes % (Manual) Monocytes % (Manual) Nucleated RBC % Seg Neutrophils # Man Lymphocytes # (Manual) Monocytes # (Manual) PT INR D-Dimer ABG pH POC ABG pCO2 POC ABG pO2 ABG pO2 47.3 L ABG HCO3 26.3 H ABG O2 Saturation 83.7 L ABG Base Excess ABG Hemoglobin ABG Oxyhemoglobin ABG Sodium ABG Potassium ABG Glucose Oxyhemoglobin 82.1 L Sodium Potassium Chloride Carbon Dioxide BUN 29 H Glucose 214 H POC Glucose 194 H Lactic Acid Phosphorus Magnesium Ferritin Lactate Dehydrogenase C-Reactive Protein NT-Pro-B Natriuret Pep Total Protein Albumin 3.4 L Triglycerides Arterial Blood Glucose Ur Specific [place] Coronavirus (PCR) 03/09/21 03/10/21 03/10/21 20:40 04:29 04:29 WBC 20.6 H RBC 5.07 H Hgb Hct 46.2 H MCHC Seg Neuts % (Manual) 94.0 H Lymphocytes % (Manual) 1.0 L Monocytes % (Manual) Nucleated RBC % 3.0 H Seg Neutrophils # Man 19.4 H Lymphocytes # (Manual) 0.2 L Monocytes # (Manual) 1.0 H PT INR D-Dimer ABG pH POC ABG pCO2 POC ABG pO2 ABG pO2 ABG HCO3 ABG O2 Saturation ABG Base Excess ABG Hemoglobin ABG Oxyhemoglobin ABG Sodium ABG Potassium ABG Glucose Oxyhemoglobin Sodium Potassium Chloride Carbon Dioxide BUN 29 H Glucose 188 H POC Glucose 176 H Lactic Acid Phosphorus Magnesium Ferritin Lactate Dehydrogenase C-Reactive Protein NT-Pro-B Natriuret Pep Total Protein Albumin 3.3 L Triglycerides Arterial Blood Glucose Ur Specific [place] Coronavirus (PCR) 03/10/21 03/10/21 03/10/21 05:22 10:27 15:25 WBC RBC Hgb Hct MCHC Seg Neuts % (Manual) Lymphocytes % (Manual) Monocytes % (Manual) Nucleated RBC % Seg Neutrophils # Man Lymphocytes # (Manual) Monocytes # (Manual) PT INR D-Dimer ABG pH 7.488 H 7.488 H POC ABG pCO2 POC ABG pO2 ABG pO2 47.7 L 50.5 L ABG HCO3 ABG O2 Saturation 86.2 L 87.9 L ABG Base Excess ABG Hemoglobin ABG Oxyhemoglobin ABG Sodium ABG Potassium ABG Glucose Oxyhemoglobin 84.6 L 86.2 L Sodium Potassium Chloride Carbon Dioxide BUN Glucose POC Glucose 155 H Lactic Acid Phosphorus Magnesium Ferritin Lactate Dehydrogenase C-Reactive Protein NT-Pro-B Natriuret Pep Total Protein Albumin Triglycerides Arterial Blood Glucose Ur Specific [place] Coronavirus (PCR) 03/10/21 03/10/21 03/11/21 18:10 18:55 00:07 WBC RBC Hgb Hct MCHC Seg Neuts % (Manual) Lymphocytes % (Manual) Monocytes % (Manual) Nucleated RBC % Seg Neutrophils # Man Lymphocytes # (Manual) Monocytes # (Manual) PT INR D-Dimer ABG pH 7.343 L POC ABG pCO2 POC ABG pO2 ABG pO2 60.4 L ABG HCO3 27.9 H ABG O2 Saturation 88.7 L ABG Base Excess ABG Hemoglobin ABG Oxyhemoglobin ABG Sodium ABG Potassium ABG Glucose Oxyhemoglobin 86.9 L Sodium Potassium Chloride Carbon Dioxide BUN Glucose POC Glucose 187 H 139 H Lactic Acid Phosphorus Magnesium Ferritin Lactate Dehydrogenase C-Reactive Protein NT-Pro-B Natriuret Pep Total Protein Albumin Triglycerides Arterial Blood Glucose Ur Specific [place] Coronavirus (PCR) 03/11/21 03/11/21 03/11/21 02:09 04:28 08:06 WBC RBC Hgb Hct MCHC Seg Neuts % (Manual) Lymphocytes % (Manual) Monocytes % (Manual) Nucleated RBC % Seg Neutrophils # Man Lymphocytes # (Manual) Monocytes # (Manual) PT INR D-Dimer ABG pH 7.277 L POC ABG pCO2 55.9 H POC ABG pO2 54.4 L ABG pO2 ABG HCO3 ABG O2 Saturation ABG Base Excess ABG Hemoglobin ABG Oxyhemoglobin 83.0 L ABG Sodium ABG Potassium 4.8 H ABG Glucose 180 H Oxyhemoglobin Sodium Potassium Chloride Carbon Dioxide BUN 38 H Glucose 249 H POC Glucose 278 H Lactic Acid Phosphorus Magnesium Ferritin Lactate Dehydrogenase C-Reactive Protein NT-Pro-B Natriuret Pep Total Protein Albumin 3.2 L Triglycerides Arterial Blood Glucose 180 H Ur Specific [place] Coronavirus (PCR) 03/11/21 03/11/21 03/11/21 11:29 15:06 15:48 WBC RBC Hgb Hct MCHC Seg Neuts % (Manual) Lymphocytes % (Manual) Monocytes % (Manual) Nucleated RBC % Seg Neutrophils # Man Lymphocytes # (Manual) Monocytes # (Manual) PT INR D-Dimer ABG pH 7.260 L POC ABG pCO2 POC ABG pO2 ABG pO2 53.5 L ABG HCO3 29.5 H ABG O2 Saturation 84.0 L ABG Base Excess ABG Hemoglobin ABG Oxyhemoglobin ABG Sodium ABG Potassium ABG Glucose Oxyhemoglobin 82.3 L Sodium Potassium Chloride Carbon Dioxide BUN Glucose POC Glucose 288 H 295 H Lactic Acid Phosphorus Magnesium Ferritin Lactate Dehydrogenase C-Reactive Protein NT-Pro-B Natriuret Pep Total Protein Albumin Triglycerides Arterial Blood Glucose Ur Specific [place] Coronavirus (PCR) 03/12/21 03/12/21 03/12/21 00:01 05:24 08:03 WBC RBC Hgb Hct MCHC Seg Neuts % (Manual) Lymphocytes % (Manual) Monocytes % (Manual) Nucleated RBC % Seg Neutrophils # Man Lymphocytes # (Manual) Monocytes # (Manual) PT INR D-Dimer ABG pH POC ABG pCO2 POC ABG pO2 ABG pO2 ABG HCO3 ABG O2 Saturation ABG Base Excess ABG Hemoglobin ABG Oxyhemoglobin ABG Sodium ABG Potassium ABG Glucose Oxyhemoglobin Sodium 135 L Potassium Chloride Carbon Dioxide BUN 48 H Glucose 358 H POC Glucose 304 H 310 H Lactic Acid Phosphorus Magnesium Ferritin Lactate Dehydrogenase C-Reactive Protein NT-Pro-B Natriuret Pep Total Protein 6.0 L Albumin 2.9 L Triglycerides Arterial Blood Glucose Ur Specific [place] Coronavirus (PCR) 03/12/21 03/12/21 03/12/21 08:03 10:43 11:31 WBC 14.6 H RBC Hgb Hct MCHC Seg Neuts % (Manual) Lymphocytes % (Manual) Monocytes % (Manual) Nucleated RBC % Seg Neutrophils # Man Lymphocytes # (Manual) Monocytes # (Manual) PT INR D-Dimer ABG pH 7.248 L POC ABG pCO2 POC ABG pO2 ABG pO2 73.7 L ABG HCO3 32.0 H ABG O2 Saturation 93.9 L ABG Base Excess ABG Hemoglobin ABG Oxyhemoglobin ABG Sodium ABG Potassium ABG Glucose Oxyhemoglobin 92.1 L Sodium Potassium Chloride Carbon Dioxide BUN Glucose POC Glucose 359 H Lactic Acid Phosphorus Magnesium Ferritin Lactate Dehydrogenase C-Reactive Protein NT-Pro-B Natriuret Pep Total Protein Albumin Triglycerides Arterial Blood Glucose Ur Specific [place] Coronavirus (PCR) 03/12/21 03/12/21 03/13/21 17:20 21:54 00:02 WBC RBC Hgb Hct MCHC Seg Neuts % (Manual) Lymphocytes % (Manual) Monocytes % (Manual) Nucleated RBC % Seg Neutrophils # Man Lymphocytes # (Manual) Monocytes # (Manual) PT INR D-Dimer ABG pH 7.238 L POC ABG pCO2 71.9 H POC ABG pO2 53.6 L ABG pO2 ABG HCO3 ABG O2 Saturation ABG Base Excess ABG Hemoglobin ABG Oxyhemoglobin 84.8 L ABG Sodium 134.2 L ABG Potassium 4.9 H ABG Glucose 306 H Oxyhemoglobin Sodium Potassium Chloride Carbon Dioxide BUN Glucose POC Glucose 374 H 308 H Lactic Acid Phosphorus Magnesium Ferritin Lactate Dehydrogenase C-Reactive Protein NT-Pro-B Natriuret Pep Total Protein Albumin Triglycerides Arterial Blood Glucose 306 H Ur Specific [place] Coronavirus (PCR) 03/13/21 03/13/21 03/13/21 05:22 05:44 05:44 WBC 13.9 H RBC Hgb Hct MCHC Seg Neuts % (Manual) Lymphocytes % (Manual) Monocytes % (Manual) Nucleated RBC % Seg Neutrophils # Man Lymphocytes # (Manual) Monocytes # (Manual) PT INR D-Dimer 3567.97 H ABG pH POC ABG pCO2 POC ABG pO2 ABG pO2 ABG HCO3 ABG O2 Saturation ABG Base Excess ABG Hemoglobin ABG Oxyhemoglobin ABG Sodium ABG Potassium ABG Glucose Oxyhemoglobin Sodium Potassium Chloride Carbon Dioxide BUN Glucose POC Glucose 316 H Lactic Acid Phosphorus Magnesium Ferritin Lactate Dehydrogenase C-Reactive Protein NT-Pro-B Natriuret Pep Total Protein Albumin Triglycerides Arterial Blood Glucose Ur Specific [place] Coronavirus (PCR) 03/13/21 03/13/21 03/13/21 05:44 05:44 11:15 WBC RBC Hgb Hct MCHC Seg Neuts % (Manual) Lymphocytes % (Manual) Monocytes % (Manual) Nucleated RBC % Seg Neutrophils # Man Lymphocytes # (Manual) Monocytes # (Manual) PT INR D-Dimer ABG pH 7.310 L POC ABG pCO2 POC ABG pO2 ABG pO2 52.3 L ABG HCO3 34.1 H ABG O2 Saturation 86.8 L ABG Base Excess 5.5 H ABG Hemoglobin 13.8 L ABG Oxyhemoglobin ABG Sodium ABG Potassium ABG Glucose Oxyhemoglobin 85.1 L Sodium Potassium Chloride Carbon Dioxide BUN Glucose POC Glucose Lactic Acid Phosphorus Magnesium Ferritin 858.7 H Lactate Dehydrogenase 348 H C-Reactive Protein 2.80 H NT-Pro-B Natriuret Pep Total Protein Albumin Triglycerides Arterial Blood Glucose Ur Specific [place] Coronavirus (PCR) 03/13/21 03/13/21 03/13/21 11:21 15:47 19:23 WBC RBC Hgb Hct MCHC Seg Neuts % (Manual) Lymphocytes % (Manual) Monocytes % (Manual) Nucleated RBC % Seg Neutrophils # Man Lymphocytes # (Manual) Monocytes # (Manual) PT INR D-Dimer ABG pH POC ABG pCO2 POC ABG pO2 ABG pO2 ABG HCO3 ABG O2 Saturation ABG Base Excess ABG Hemoglobin ABG Oxyhemoglobin ABG Sodium ABG Potassium ABG Glucose Oxyhemoglobin Sodium 136 L Potassium 5.9 H Chloride Carbon Dioxide BUN 50 H Glucose 397 H POC Glucose 322 H 317 H Lactic Acid Phosphorus Magnesium Ferritin Lactate Dehydrogenase C-Reactive Protein NT-Pro-B Natriuret Pep Total Protein Albumin Triglycerides Arterial Blood Glucose Ur Specific [place] Coronavirus (PCR) 03/13/21 03/14/21 03/14/21 23:46 05:32 05:50 WBC 11.6 H RBC Hgb Hct MCHC Seg Neuts % (Manual) Lymphocytes % (Manual) Monocytes % (Manual) Nucleated RBC % Seg Neutrophils # Man Lymphocytes # (Manual) Monocytes # (Manual) PT INR D-Dimer ABG pH POC ABG pCO2 POC ABG pO2 ABG pO2 ABG HCO3 ABG O2 Saturation ABG Base Excess ABG Hemoglobin ABG Oxyhemoglobin ABG Sodium ABG Potassium ABG Glucose Oxyhemoglobin Sodium Potassium Chloride Carbon Dioxide BUN Glucose POC Glucose 332 H 316 H Lactic Acid Phosphorus Magnesium Ferritin Lactate Dehydrogenase C-Reactive Protein NT-Pro-B Natriuret Pep Total Protein Albumin Triglycerides Arterial Blood Glucose Ur Specific [place] Coronavirus (PCR) 03/14/21 03/14/21 03/14/21 05:50 11:33 16:53 WBC RBC Hgb Hct MCHC Seg Neuts % (Manual) Lymphocytes % (Manual) Monocytes % (Manual) Nucleated RBC % Seg Neutrophils # Man Lymphocytes # (Manual) Monocytes # (Manual) PT INR D-Dimer ABG pH POC ABG pCO2 POC ABG pO2 ABG pO2 ABG HCO3 ABG O2 Saturation ABG Base Excess ABG Hemoglobin ABG Oxyhemoglobin ABG Sodium ABG Potassium ABG Glucose Oxyhemoglobin Sodium Potassium 5.9 H Chloride Carbon Dioxide 31 H BUN 48 H Glucose 380 H POC Glucose 315 H 235 H Lactic Acid Phosphorus Magnesium 3.40 H Ferritin Lactate Dehydrogenase C-Reactive Protein NT-Pro-B Natriuret Pep Total Protein Albumin Triglycerides Arterial Blood Glucose Ur Specific [place] Coronavirus (PCR) 03/14/21 03/14/21 03/15/21 18:34 23:27 01:22 WBC RBC Hgb Hct 46.3 H MCHC Seg Neuts % (Manual) Lymphocytes % (Manual) Monocytes % (Manual) Nucleated RBC % Seg Neutrophils # Man Lymphocytes # (Manual) Monocytes # (Manual) PT INR D-Dimer ABG pH POC ABG pCO2 POC ABG pO2 ABG pO2 ABG HCO3 ABG O2 Saturation ABG Base Excess ABG Hemoglobin ABG Oxyhemoglobin ABG Sodium ABG Potassium ABG Glucose Oxyhemoglobin Sodium 146 H Potassium Chloride Carbon Dioxide 34 H BUN 49 H Glucose 285 H POC Glucose 203 H Lactic Acid Phosphorus Magnesium Ferritin Lactate Dehydrogenase C-Reactive Protein NT-Pro-B Natriuret Pep Total Protein Albumin Triglycerides Arterial Blood Glucose Ur Specific [place] Coronavirus (PCR) 03/15/21 03/15/21 03/15/21 04:00 06:06 06:06 WBC RBC Hgb Hct MCHC Seg Neuts % (Manual) Lymphocytes % (Manual) Monocytes % (Manual) Nucleated RBC % Seg Neutrophils # Man Lymphocytes # (Manual) Monocytes # (Manual) PT INR D-Dimer 1781.79 H ABG pH POC ABG pCO2 POC ABG pO2 ABG pO2 ABG HCO3 ABG O2 Saturation ABG Base Excess ABG Hemoglobin ABG Oxyhemoglobin ABG Sodium ABG Potassium ABG Glucose Oxyhemoglobin Sodium 148 H Potassium 5.7 H D Chloride 108.0 H Carbon Dioxide 31 H BUN 46 H Glucose 139 H POC Glucose Lactic Acid Phosphorus 4.80 H D Magnesium 3.00 H Ferritin 976.4 H Lactate Dehydrogenase 630 H C-Reactive Protein NT-Pro-B Natriuret Pep Total Protein Albumin Triglycerides Arterial Blood Glucose Ur Specific [place] Coronavirus (PCR) 03/15/21 03/15/21 03/15/21 11:56 14:05 17:09 WBC RBC Hgb Hct MCHC Seg Neuts % (Manual) Lymphocytes % (Manual) Monocytes % (Manual) Nucleated RBC % Seg Neutrophils # Man Lymphocytes # (Manual) Monocytes # (Manual) PT INR D-Dimer ABG pH POC ABG pCO2 POC ABG pO2 ABG pO2 52.1 L ABG HCO3 36.6 H ABG O2 Saturation 87.6 L ABG Base Excess 9.5 H ABG Hemoglobin ABG Oxyhemoglobin ABG Sodium ABG Potassium ABG Glucose Oxyhemoglobin 85.7 L Sodium Potassium Chloride Carbon Dioxide BUN Glucose POC Glucose 219 H 263 H Lactic Acid Phosphorus Magnesium Ferritin Lactate Dehydrogenase C-Reactive Protein NT-Pro-B Natriuret Pep Total Protein Albumin Triglycerides Arterial Blood Glucose Ur Specific [place] Coronavirus (PCR) 03/16/21 03/16/21 03/16/21 00:32 04:11 04:11 WBC 11.9 H RBC Hgb Hct MCHC 30 L Seg Neuts % (Manual) Lymphocytes % (Manual) Monocytes % (Manual) Nucleated RBC % Seg Neutrophils # Man Lymphocytes # (Manual) Monocytes # (Manual) PT INR D-Dimer ABG pH POC ABG pCO2 POC ABG pO2 ABG pO2 ABG HCO3 ABG O2 Saturation ABG Base Excess ABG Hemoglobin ABG Oxyhemoglobin ABG Sodium ABG Potassium ABG Glucose Oxyhemoglobin Sodium 151 H Potassium Chloride Carbon Dioxide 35 H BUN 48 H Glucose 152 H POC Glucose 165 H Lactic Acid Phosphorus Magnesium Ferritin Lactate Dehydrogenase C-Reactive Protein NT-Pro-B Natriuret Pep Total Protein Albumin Triglycerides Arterial Blood Glucose Ur Specific [place] Coronavirus (PCR) 03/16/21 03/16/21 04:11 05:26 WBC RBC Hgb Hct MCHC Seg Neuts % (Manual) Lymphocytes % (Manual) Monocytes % (Manual) Nucleated RBC % Seg Neutrophils # Man Lymphocytes # (Manual) Monocytes # (Manual) PT INR D-Dimer ABG pH POC ABG pCO2 POC ABG pO2 ABG pO2 ABG HCO3 ABG O2 Saturation ABG Base Excess ABG Hemoglobin ABG Oxyhemoglobin ABG Sodium ABG Potassium ABG Glucose Oxyhemoglobin Sodium Potassium Chloride Carbon Dioxide BUN Glucose POC Glucose 162 H Lactic Acid Phosphorus Magnesium Ferritin Lactate Dehydrogenase C-Reactive Protein NT-Pro-B Natriuret Pep Total Protein Albumin Triglycerides 267 H Arterial Blood Glucose Ur Specific [place] Coronavirus (PCR) Allied health notes reviewed: RT
[2021-03-16] MEDS: ACETAMINOPHEN 325 MG TAB PO PRN (08:07)
--- NOTE | 2021-03-16 08:50 | Consultation ---
History of Present Illness Consult date: 03/16/21 Reason for Consult: Altered mentation,COVID-19 Pneumonia History of present illness: Shortness of breath History of present illness: 61-year-old male with past medical history of hypertension and diabetes was brought to the emergency room because of shortness of breath and hypoxia. Patient has been feeling ill for approximately a week. Patient was confused and paramedics were called. Patient's oxygen saturation levels were in the low 70s. 88-90% O2 sat on a NRB mask. Patient does state he has had some cough was unable to give much additional history on arrival. Denies nausea vomiting diarrhea. Patient hypoxic even on a nonrebreather at 88%. Patient placed on BiPAP and his gait has a better O2 sat and his alertness is improved as well. Patient with by lateral patchy infiltrates in all lobes consistent with COVID-pneumonia. COVID testing is positive. Patient given Rocephin azithromycin and low-dose Decadron since he is diabetic. Patient to be admitted to the hospital service. pt. currently intubated and sedated On fentanyl #4 mc and Propofol # 45 mc Past History Past Medical History: diabetes, hypertension Medications and Allergies Allergies Allergy/AdvReac Type Severity Reaction Status Date / Time No Known Allergies Allergy Verified 03/08/21 20:25 Review of Systems All systems: negative Constitutional: malaise, lethargy Cardiovascular: shortness of breath, dyspnea on exertion Respiratory: cough, shortness of breath, dyspnea on exertion Past History Past Medical History: diabetes, hypertension Family history: hypertension Medications and Allergies Allergies Allergy/AdvReac Type Severity Reaction Status Date / Time No Known Allergies Allergy Verified 03/08/21 20:25 Home Medications Medication Instructions Recorded Confirmed Last Taken Type No Known Home Medications [No 03/11/21 03/11/21 Unknown History Reported Home Medications] Active Meds: Active Medications Acetaminophen (Acetaminophen 325 Mg Tab) 650 mg PO Q4H PRN PRN Reason: Pain MILD(1-3)/Fever >100.5/RAYO Last Admin: 03/16/21 08:07 Dose: 650 mg Albuterol (Albuterol 2.5 Mg/3 Ml Nebu) 2.5 mg IH Q4HRT PRN PRN Reason: Shortness Of Breath Albuterol/Ipratropium (Ipratropium/Albuterol Sulfate 3 Ml Ampul.Neb) 1 ampul IH TIDRT [facility] Last Admin: 03/16/21 07:51 Dose: 1 ampul Arformoterol Tartrate (Arformoterol 15 Mcg/2 Ml Nebu) 15 mcg IH Q12HRT [facility] Last Admin: 03/15/21 19:49 Dose: 15 mcg Ascorbic Acid (Ascorbic Acid 500 Mg Tab) 500 mg PO BID [facility] Last Admin: 03/15/21 21:58 Dose: 500 mg Budesonide (Budesonide 0.25 Mg/2 Ml Nebu) 0.25 mg IH Q12HRT [facility] Last Admin: 03/15/21 19:49 Dose: 0.25 mg Dextrose (Dextrose 50% In Water (25gm) 50 Ml Syringe) 0 ml IV Q30MIN PRN; Protocol PRN Reason: Hypoglycemia Enoxaparin Sodium (Enoxaparin 100 Mg/1 Ml Inj) 100 mg SUB-Q Q12HR [facility]; Protocol Last Admin: 03/15/21 21:57 Dose: 100 mg Famotidine (Famotidine 20 Mg Tab) 20 mg FEEDTUBE BID [facility] Last Admin: 03/15/21 21:58 Dose: 20 mg Fentanyl (Fentanyl 100 Mcg/2 Ml Inj) 50 mcg IV Q10MIN PRN PRN Reason: ANALGESIA Hydralazine HCl (Hydralazine 20 Mg/1 Ml Inj) 10 mg IV Q6H PRN PRN Reason: Blood Pressure Last Admin: 03/10/21 03:56 Dose: 10 mg Hydralazine HCl (Hydralazine 25 Mg Tab) 50 mg PO Q8HR [facility] Last Admin: 03/16/21 05:39 Dose: 50 mg Hydrophilic Ointment (Lip Therapy Vaseline) 1 applic TP Q2HR PRN PRN Reason: Dry Lips Fentanyl Citrate (Fentanyl Drip Premix) 2,000 mcg in 100 mls @ 5.897 mls/hr IV TITR [facility]; Protocol Last Admin: 03/16/21 08:06 Dose: 4 mcg/kg/hr, 23.587 mls/hr Propofol (Diprivan 10 Mg/Ml) 1,000 mg in 100 mls @ 3.507 mls/hr IV TITR [facility]; Protocol Last Admin: 03/16/21 08:07 Dose: 45 mcg/kg/min, 31.563 mls/hr Cefepime HCl (Cefepime/Ns 2 Gm/100 Ml) 2 gm in 100 mls @ 200 mls/hr IV ONCE@0900 [facility]; Protocol Stop: 03/16/21 12:00 Vancomycin HCl 1,750 mg/ (Sodium Chloride) 535 mls @ 333 mls/hr IV ONCE@0930 [facility]; Protocol Stop: 03/16/21 12:00 Insulin Glargine (Insulin Glargine 100 Units/Ml) 25 units SUB-Q BID [facility] Last Admin: 03/15/21 21:58 Dose: 25 units Insulin Human Lispro (Insulin Lispro 100 Unit/Ml) 0 unit SUB-Q Q6HR [facility]; Protocol Last Admin: 03/16/21 05:40 Dose: 3 unit Insulin Human Regular (Insulin Regular, Human 100 Units/1 Ml) 5 units SUB-Q Q6HR [facility] Last Admin: 03/16/21 05:40 Dose: 5 units Labetalol HCl (Labetalol 20 Mg/4 Ml Inj) 10 mg IV Q6H PRN PRN Reason: Blood Pressure Methylprednisolone Sodium Succinate (Methylprednisolone Sod Succinate 125 Mg/2 Ml Inj) 60 mg IV Q8HR [facility] Last Admin: 03/16/21 05:39 Dose: 60 mg Midazolam HCl (Midazolam 2 Mg/2 Ml Inj) 2 mg IV Q2H PRN PRN Reason: VENT SYNCHRONY Last Admin: 03/16/21 02:26 Dose: 2 mg Multi-Ingred Cream/Lotion/Oil/Oint (Mineral Oil/Petrolatum, White Ophth Oint 3.5 Gm) 1 applic OU Q4HR PRN PRN Reason: Dry Eye(s) Ondansetron HCl (Ondansetron 4 Mg/2 Ml Inj) 4 mg IV Q8H PRN PRN Reason: Nausea And Vomiting Senna/Docusate Sodium (Sennosides/Docusate Sodium 8.6/50 Mg Tab) 1 tab FEEDTUBE BID [facility] Last Admin: 03/15/21 21:58 Dose: Not Given Sodium Chloride (Sodium Chloride 0.9% 10 Ml Flush Syringe) 10 ml IV BID [facility] Last Admin: 03/15/21 21:58 Dose: 10 ml Sodium Chloride (Sodium Chloride 0.9% 10 Ml Flush Syringe) 10 ml IV PRN PRN PRN Reason: LINE FLUSH Zinc Sulfate (Zinc Sulfate 220 Mg Cap) 220 mg PO BID [facility] Last Admin: 03/15/21 21:59 Dose: 220 mg Physical Examination - Vital Signs Vital Signs: Vital Signs Temp Pulse Resp BP Pulse Ox 98.4 F 108 H 30 H 130/86 88 03/08/21 19:30 03/08/21 19:30 03/08/21 19:30 03/08/21 19:30 03/08/21 19:30 - Constitutional General appearance: comfortable - EENT EENT: Present: PERRL, mucous membranes moist - Respiratory Respiratory: Present: lungs clear, rales, rhonchi - Cardiovascular Cardiovascular: Present: regular rate, normal S1, normal S2 Extremities: Present: no peripheral edema bilatateraly, no clubbing, cyanosis - Gastrointestinal Gastrointestinal: Present: normoactive bowel sounds - Integumentary Integumentary: Present: normal - Neurologic Cranial nerve examination: PERRL, EOMI, intact Speech examination: other (intubated and sedated) Detailed motor examination: other (no movment to stimuli , no neck rigidity) Results - Laboratory Findings CBC and BMP: 03/16/21 04:11 03/16/21 04:11 Abnormal Lab Findings: Abnormal Labs 03/08/21 03/08/21 03/08/21 20:24 20:24 20:24 WBC 22.6 H RBC 5.44 H Hgb 15.7 H Hct 49.2 H MCHC Seg Neuts % (Manual) 83.0 H Lymphocytes % (Manual) 9.0 L Monocytes % (Manual) 8.0 H Nucleated RBC % Seg Neutrophils # Man 18.8 H Lymphocytes # (Manual) Monocytes # (Manual) 1.8 H PT 16.1 H INR 1.17 H D-Dimer > 11556 H ABG pH POC ABG pCO2 POC ABG pO2 ABG pO2 ABG HCO3 ABG O2 Saturation ABG Base Excess ABG Hemoglobin ABG Oxyhemoglobin ABG Sodium ABG Potassium ABG Glucose Oxyhemoglobin Sodium 136 L Potassium Chloride 93.9 L Carbon Dioxide BUN 29 H Glucose 208 H POC Glucose Lactic Acid Phosphorus Magnesium Ferritin Lactate Dehydrogenase 624 H C-Reactive Protein 18.00 H NT-Pro-B Natriuret Pep 1053 H Total Protein Albumin Triglycerides Arterial Blood Glucose Ur Specific [place] Coronavirus (PCR) 03/08/21 03/08/21 03/09/21 20:24 20:24 04:10 WBC RBC Hgb Hct MCHC Seg Neuts % (Manual) Lymphocytes % (Manual) Monocytes % (Manual) Nucleated RBC % Seg Neutrophils # Man Lymphocytes # (Manual) Monocytes # (Manual) PT INR D-Dimer ABG pH POC ABG pCO2 POC ABG pO2 ABG pO2 ABG HCO3 ABG O2 Saturation ABG Base Excess ABG Hemoglobin ABG Oxyhemoglobin ABG Sodium ABG Potassium ABG Glucose Oxyhemoglobin Sodium Potassium Chloride Carbon Dioxide BUN Glucose POC Glucose Lactic Acid 2.10 H* Phosphorus Magnesium Ferritin 877.5 H Lactate Dehydrogenase C-Reactive Protein NT-Pro-B Natriuret Pep Total Protein Albumin Triglycerides Arterial Blood Glucose Ur Specific [place] 1.041 H Coronavirus (PCR) 03/09/21 03/09/21 03/09/21 07:46 08:00 13:01 WBC RBC Hgb Hct MCHC Seg Neuts % (Manual) Lymphocytes % (Manual) Monocytes % (Manual) Nucleated RBC % Seg Neutrophils # Man Lymphocytes # (Manual) Monocytes # (Manual) PT INR D-Dimer ABG pH POC ABG pCO2 POC ABG pO2 ABG pO2 ABG HCO3 ABG O2 Saturation ABG Base Excess ABG Hemoglobin ABG Oxyhemoglobin ABG Sodium ABG Potassium ABG Glucose Oxyhemoglobin Sodium Potassium Chloride Carbon Dioxide BUN Glucose POC Glucose 191 H 182 H Lactic Acid Phosphorus Magnesium Ferritin Lactate Dehydrogenase C-Reactive Protein NT-Pro-B Natriuret Pep Total Protein Albumin Triglycerides Arterial Blood Glucose Ur Specific [place] Coronavirus (PCR) Positive A 03/09/21 03/09/21 03/09/21 15:19 17:48 18:10 WBC RBC Hgb Hct MCHC Seg Neuts % (Manual) Lymphocytes % (Manual) Monocytes % (Manual) Nucleated RBC % Seg Neutrophils # Man Lymphocytes # (Manual) Monocytes # (Manual) PT INR D-Dimer ABG pH POC ABG pCO2 POC ABG pO2 ABG pO2 47.3 L ABG HCO3 26.3 H ABG O2 Saturation 83.7 L ABG Base Excess ABG Hemoglobin ABG Oxyhemoglobin ABG Sodium ABG Potassium ABG Glucose Oxyhemoglobin 82.1 L Sodium Potassium Chloride Carbon Dioxide BUN 29 H Glucose 214 H POC Glucose 194 H Lactic Acid Phosphorus Magnesium Ferritin Lactate Dehydrogenase C-Reactive Protein NT-Pro-B Natriuret Pep Total Protein Albumin 3.4 L Triglycerides Arterial Blood Glucose Ur Specific [place] Coronavirus (PCR) 03/09/21 03/10/21 03/10/21 20:40 04:29 04:29 WBC 20.6 H RBC 5.07 H Hgb Hct 46.2 H MCHC Seg Neuts % (Manual) 94.0 H Lymphocytes % (Manual) 1.0 L Monocytes % (Manual) Nucleated RBC % 3.0 H Seg Neutrophils # Man 19.4 H Lymphocytes # (Manual) 0.2 L Monocytes # (Manual) 1.0 H PT INR D-Dimer ABG pH POC ABG pCO2 POC ABG pO2 ABG pO2 ABG HCO3 ABG O2 Saturation ABG Base Excess ABG Hemoglobin ABG Oxyhemoglobin ABG Sodium ABG Potassium ABG Glucose Oxyhemoglobin Sodium Potassium Chloride Carbon Dioxide BUN 29 H Glucose 188 H POC Glucose 176 H Lactic Acid Phosphorus Magnesium Ferritin Lactate Dehydrogenase C-Reactive Protein NT-Pro-B Natriuret Pep Total Protein Albumin 3.3 L Triglycerides Arterial Blood Glucose Ur Specific [place] Coronavirus (PCR) 03/10/21 03/10/21 03/10/21 05:22 10:27 15:25 WBC RBC Hgb Hct MCHC Seg Neuts % (Manual) Lymphocytes % (Manual) Monocytes % (Manual) Nucleated RBC % Seg Neutrophils # Man Lymphocytes # (Manual) Monocytes # (Manual) PT INR D-Dimer ABG pH 7.488 H 7.488 H POC ABG pCO2 POC ABG pO2 ABG pO2 47.7 L 50.5 L ABG HCO3 ABG O2 Saturation 86.2 L 87.9 L ABG Base Excess ABG Hemoglobin ABG Oxyhemoglobin ABG Sodium ABG Potassium ABG Glucose Oxyhemoglobin 84.6 L 86.2 L Sodium Potassium Chloride Carbon Dioxide BUN Glucose POC Glucose 155 H Lactic Acid Phosphorus Magnesium Ferritin Lactate Dehydrogenase C-Reactive Protein NT-Pro-B Natriuret Pep Total Protein Albumin Triglycerides Arterial Blood Glucose Ur Specific [place] Coronavirus (PCR) 03/10/21 03/10/21 03/11/21 18:10 18:55 00:07 WBC RBC Hgb Hct MCHC Seg Neuts % (Manual) Lymphocytes % (Manual) Monocytes % (Manual) Nucleated RBC % Seg Neutrophils # Man Lymphocytes # (Manual) Monocytes # (Manual) PT INR D-Dimer ABG pH 7.343 L POC ABG pCO2 POC ABG pO2 ABG pO2 60.4 L ABG HCO3 27.9 H ABG O2 Saturation 88.7 L ABG Base Excess ABG Hemoglobin ABG Oxyhemoglobin ABG Sodium ABG Potassium ABG Glucose Oxyhemoglobin 86.9 L Sodium Potassium Chloride Carbon Dioxide BUN Glucose POC Glucose 187 H 139 H Lactic Acid Phosphorus Magnesium Ferritin Lactate Dehydrogenase C-Reactive Protein NT-Pro-B Natriuret Pep Total Protein Albumin Triglycerides Arterial Blood Glucose Ur Specific [place] Coronavirus (PCR) 03/11/21 03/11/21 03/11/21 02:09 04:28 08:06 WBC RBC Hgb Hct MCHC Seg Neuts % (Manual) Lymphocytes % (Manual) Monocytes % (Manual) Nucleated RBC % Seg Neutrophils # Man Lymphocytes # (Manual) Monocytes # (Manual) PT INR D-Dimer ABG pH 7.277 L POC ABG pCO2 55.9 H POC ABG pO2 54.4 L ABG pO2 ABG HCO3 ABG O2 Saturation ABG Base Excess ABG Hemoglobin ABG Oxyhemoglobin 83.0 L ABG Sodium ABG Potassium 4.8 H ABG Glucose 180 H Oxyhemoglobin Sodium Potassium Chloride Carbon Dioxide BUN 38 H Glucose 249 H POC Glucose 278 H Lactic Acid Phosphorus Magnesium Ferritin Lactate Dehydrogenase C-Reactive Protein NT-Pro-B Natriuret Pep Total Protein Albumin 3.2 L Triglycerides Arterial Blood Glucose 180 H Ur Specific [place] Coronavirus (PCR) 03/11/21 03/11/21 03/11/21 11:29 15:06 15:48 WBC RBC Hgb Hct MCHC Seg Neuts % (Manual) Lymphocytes % (Manual) Monocytes % (Manual) Nucleated RBC % Seg Neutrophils # Man Lymphocytes # (Manual) Monocytes # (Manual) PT INR D-Dimer ABG pH 7.260 L POC ABG pCO2 POC ABG pO2 ABG pO2 53.5 L ABG HCO3 29.5 H ABG O2 Saturation 84.0 L ABG Base Excess ABG Hemoglobin ABG Oxyhemoglobin ABG Sodium ABG Potassium ABG Glucose Oxyhemoglobin 82.3 L Sodium Potassium Chloride Carbon Dioxide BUN Glucose POC Glucose 288 H 295 H Lactic Acid Phosphorus Magnesium Ferritin Lactate Dehydrogenase C-Reactive Protein NT-Pro-B Natriuret Pep Total Protein Albumin Triglycerides Arterial Blood Glucose Ur Specific [place] Coronavirus (PCR) 03/12/21 03/12/21 03/12/21 00:01 05:24 08:03 WBC RBC Hgb Hct MCHC Seg Neuts % (Manual) Lymphocytes % (Manual) Monocytes % (Manual) Nucleated RBC % Seg Neutrophils # Man Lymphocytes # (Manual) Monocytes # (Manual) PT INR D-Dimer ABG pH POC ABG pCO2 POC ABG pO2 ABG pO2 ABG HCO3 ABG O2 Saturation ABG Base Excess ABG Hemoglobin ABG Oxyhemoglobin ABG Sodium ABG Potassium ABG Glucose Oxyhemoglobin Sodium 135 L Potassium Chloride Carbon Dioxide BUN 48 H Glucose 358 H POC Glucose 304 H 310 H Lactic Acid Phosphorus Magnesium Ferritin Lactate Dehydrogenase C-Reactive Protein NT-Pro-B Natriuret Pep Total Protein 6.0 L Albumin 2.9 L Triglycerides Arterial Blood Glucose Ur Specific [place] Coronavirus (PCR) 03/12/21 03/12/21 03/12/21 08:03 10:43 11:31 WBC 14.6 H RBC Hgb Hct MCHC Seg Neuts % (Manual) Lymphocytes % (Manual) Monocytes % (Manual) Nucleated RBC % Seg Neutrophils # Man Lymphocytes # (Manual) Monocytes # (Manual) PT INR D-Dimer ABG pH 7.248 L POC ABG pCO2 POC ABG pO2 ABG pO2 73.7 L ABG HCO3 32.0 H ABG O2 Saturation 93.9 L ABG Base Excess ABG Hemoglobin ABG Oxyhemoglobin ABG Sodium ABG Potassium ABG Glucose Oxyhemoglobin 92.1 L Sodium Potassium Chloride Carbon Dioxide BUN Glucose POC Glucose 359 H Lactic Acid Phosphorus Magnesium Ferritin Lactate Dehydrogenase C-Reactive Protein NT-Pro-B Natriuret Pep Total Protein Albumin Triglycerides Arterial Blood Glucose Ur Specific [place] Coronavirus (PCR) 03/12/21 03/12/21 03/13/21 17:20 21:54 00:02 WBC RBC Hgb Hct MCHC Seg Neuts % (Manual) Lymphocytes % (Manual) Monocytes % (Manual) Nucleated RBC % Seg Neutrophils # Man Lymphocytes # (Manual) Monocytes # (Manual) PT INR D-Dimer ABG pH 7.238 L POC ABG pCO2 71.9 H POC ABG pO2 53.6 L ABG pO2 ABG HCO3 ABG O2 Saturation ABG Base Excess ABG Hemoglobin ABG Oxyhemoglobin 84.8 L ABG Sodium 134.2 L ABG Potassium 4.9 H ABG Glucose 306 H Oxyhemoglobin Sodium Potassium Chloride Carbon Dioxide BUN Glucose POC Glucose 374 H 308 H Lactic Acid Phosphorus Magnesium Ferritin Lactate Dehydrogenase C-Reactive Protein NT-Pro-B Natriuret Pep Total Protein Albumin Triglycerides Arterial Blood Glucose 306 H Ur Specific [place] Coronavirus (PCR) 03/13/21 03/13/21 03/13/21 05:22 05:44 05:44 WBC 13.9 H RBC Hgb Hct MCHC Seg Neuts % (Manual) Lymphocytes % (Manual) Monocytes % (Manual) Nucleated RBC % Seg Neutrophils # Man Lymphocytes # (Manual) Monocytes # (Manual) PT INR D-Dimer 3567.97 H ABG pH POC ABG pCO2 POC ABG pO2 ABG pO2 ABG HCO3 ABG O2 Saturation ABG Base Excess ABG Hemoglobin ABG Oxyhemoglobin ABG Sodium ABG Potassium ABG Glucose Oxyhemoglobin Sodium Potassium Chloride Carbon Dioxide BUN Glucose POC Glucose 316 H Lactic Acid Phosphorus Magnesium Ferritin Lactate Dehydrogenase C-Reactive Protein NT-Pro-B Natriuret Pep Total Protein Albumin Triglycerides Arterial Blood Glucose Ur Specific [place] Coronavirus (PCR) 03/13/21 03/13/21 03/13/21 05:44 05:44 11:15 WBC RBC Hgb Hct MCHC Seg Neuts % (Manual) Lymphocytes % (Manual) Monocytes % (Manual) Nucleated RBC % Seg Neutrophils # Man Lymphocytes # (Manual) Monocytes # (Manual) PT INR D-Dimer ABG pH 7.310 L POC ABG pCO2 POC ABG pO2 ABG pO2 52.3 L ABG HCO3 34.1 H ABG O2 Saturation 86.8 L ABG Base Excess 5.5 H ABG Hemoglobin 13.8 L ABG Oxyhemoglobin ABG Sodium ABG Potassium ABG Glucose Oxyhemoglobin 85.1 L Sodium Potassium Chloride Carbon Dioxide BUN Glucose POC Glucose Lactic Acid Phosphorus Magnesium Ferritin 858.7 H Lactate Dehydrogenase 348 H C-Reactive Protein 2.80 H NT-Pro-B Natriuret Pep Total Protein Albumin Triglycerides Arterial Blood Glucose Ur Specific [place] Coronavirus (PCR) 03/13/21 03/13/21 03/13/21 11:21 15:47 19:23 WBC RBC Hgb Hct MCHC Seg Neuts % (Manual) Lymphocytes % (Manual) Monocytes % (Manual) Nucleated RBC % Seg Neutrophils # Man Lymphocytes # (Manual) Monocytes # (Manual) PT INR D-Dimer ABG pH POC ABG pCO2 POC ABG pO2 ABG pO2 ABG HCO3 ABG O2 Saturation ABG Base Excess ABG Hemoglobin ABG Oxyhemoglobin ABG Sodium ABG Potassium ABG Glucose Oxyhemoglobin Sodium 136 L Potassium 5.9 H Chloride Carbon Dioxide BUN 50 H Glucose 397 H POC Glucose 322 H 317 H Lactic Acid Phosphorus Magnesium Ferritin Lactate Dehydrogenase C-Reactive Protein NT-Pro-B Natriuret Pep Total Protein Albumin Triglycerides Arterial Blood Glucose Ur Specific [place] Coronavirus (PCR) 03/13/21 03/14/21 03/14/21 23:46 05:32 05:50 WBC 11.6 H RBC Hgb Hct MCHC Seg Neuts % (Manual) Lymphocytes % (Manual) Monocytes % (Manual) Nucleated RBC % Seg Neutrophils # Man Lymphocytes # (Manual) Monocytes # (Manual) PT INR D-Dimer ABG pH POC ABG pCO2 POC ABG pO2 ABG pO2 ABG HCO3 ABG O2 Saturation ABG Base Excess ABG Hemoglobin ABG Oxyhemoglobin ABG Sodium ABG Potassium ABG Glucose Oxyhemoglobin Sodium Potassium Chloride Carbon Dioxide BUN Glucose POC Glucose 332 H 316 H Lactic Acid Phosphorus Magnesium Ferritin Lactate Dehydrogenase C-Reactive Protein NT-Pro-B Natriuret Pep Total Protein Albumin Triglycerides Arterial Blood Glucose Ur Specific [place] Coronavirus (PCR) 03/14/21 03/14/21 03/14/21 05:50 11:33 16:53 WBC RBC Hgb Hct MCHC Seg Neuts % (Manual) Lymphocytes % (Manual) Monocytes % (Manual) Nucleated RBC % Seg Neutrophils # Man Lymphocytes # (Manual) Monocytes # (Manual) PT INR D-Dimer ABG pH POC ABG pCO2 POC ABG pO2 ABG pO2 ABG HCO3 ABG O2 Saturation ABG Base Excess ABG Hemoglobin ABG Oxyhemoglobin ABG Sodium ABG Potassium ABG Glucose Oxyhemoglobin Sodium Potassium 5.9 H Chloride Carbon Dioxide 31 H BUN 48 H Glucose 380 H POC Glucose 315 H 235 H Lactic Acid Phosphorus Magnesium 3.40 H Ferritin Lactate Dehydrogenase C-Reactive Protein NT-Pro-B Natriuret Pep Total Protein Albumin Triglycerides Arterial Blood Glucose Ur Specific [place] Coronavirus (PCR) 03/14/21 03/14/21 03/15/21 18:34 23:27 01:22 WBC RBC Hgb Hct 46.3 H MCHC Seg Neuts % (Manual) Lymphocytes % (Manual) Monocytes % (Manual) Nucleated RBC % Seg Neutrophils # Man Lymphocytes # (Manual) Monocytes # (Manual) PT INR D-Dimer ABG pH POC ABG pCO2 POC ABG pO2 ABG pO2 ABG HCO3 ABG O2 Saturation ABG Base Excess ABG Hemoglobin ABG Oxyhemoglobin ABG Sodium ABG Potassium ABG Glucose Oxyhemoglobin Sodium 146 H Potassium Chloride Carbon Dioxide 34 H BUN 49 H Glucose 285 H POC Glucose 203 H Lactic Acid Phosphorus Magnesium Ferritin Lactate Dehydrogenase C-Reactive Protein NT-Pro-B Natriuret Pep Total Protein Albumin Triglycerides Arterial Blood Glucose Ur Specific [place] Coronavirus (PCR) 03/15/21 03/15/21 03/15/21 04:00 06:06 06:06 WBC RBC Hgb Hct MCHC Seg Neuts % (Manual) Lymphocytes % (Manual) Monocytes % (Manual) Nucleated RBC % Seg Neutrophils # Man Lymphocytes # (Manual) Monocytes # (Manual) PT INR D-Dimer 1781.79 H ABG pH POC ABG pCO2 POC ABG pO2 ABG pO2 ABG HCO3 ABG O2 Saturation ABG Base Excess ABG Hemoglobin ABG Oxyhemoglobin ABG Sodium ABG Potassium ABG Glucose Oxyhemoglobin Sodium 148 H Potassium 5.7 H D Chloride 108.0 H Carbon Dioxide 31 H BUN 46 H Glucose 139 H POC Glucose Lactic Acid Phosphorus 4.80 H D Magnesium 3.00 H Ferritin 976.4 H Lactate Dehydrogenase 630 H C-Reactive Protein NT-Pro-B Natriuret Pep Total Protein Albumin Triglycerides Arterial Blood Glucose Ur Specific [place] Coronavirus (PCR) 03/15/21 03/15/21 03/15/21 11:56 14:05 17:09 WBC RBC Hgb Hct MCHC Seg Neuts % (Manual) Lymphocytes % (Manual) Monocytes % (Manual) Nucleated RBC % Seg Neutrophils # Man Lymphocytes # (Manual) Monocytes # (Manual) PT INR D-Dimer ABG pH POC ABG pCO2 POC ABG pO2 ABG pO2 52.1 L ABG HCO3 36.6 H ABG O2 Saturation 87.6 L ABG Base Excess 9.5 H ABG Hemoglobin ABG Oxyhemoglobin ABG Sodium ABG Potassium ABG Glucose Oxyhemoglobin 85.7 L Sodium Potassium Chloride Carbon Dioxide BUN Glucose POC Glucose 219 H 263 H Lactic Acid Phosphorus Magnesium Ferritin Lactate Dehydrogenase C-Reactive Protein NT-Pro-B Natriuret Pep Total Protein Albumin Triglycerides Arterial Blood Glucose Ur Specific [place] Coronavirus (PCR) 03/16/21 03/16/21 03/16/21 00:32 04:11 04:11 WBC 11.9 H RBC Hgb Hct MCHC 30 L Seg Neuts % (Manual) Lymphocytes % (Manual) Monocytes % (Manual) Nucleated RBC % Seg Neutrophils # Man Lymphocytes # (Manual) Monocytes # (Manual) PT INR D-Dimer ABG pH POC ABG pCO2 POC ABG pO2 ABG pO2 ABG HCO3 ABG O2 Saturation ABG Base Excess ABG Hemoglobin ABG Oxyhemoglobin ABG Sodium ABG Potassium ABG Glucose Oxyhemoglobin Sodium 151 H Potassium Chloride Carbon Dioxide 35 H BUN 48 H Glucose 152 H POC Glucose 165 H Lactic Acid Phosphorus Magnesium Ferritin Lactate Dehydrogenase C-Reactive Protein NT-Pro-B Natriuret Pep Total Protein Albumin Triglycerides Arterial Blood Glucose Ur Specific [place] Coronavirus (PCR) 03/16/21 03/16/21 04:11 05:26 WBC RBC Hgb Hct MCHC Seg Neuts % (Manual) Lymphocytes % (Manual) Monocytes % (Manual) Nucleated RBC % Seg Neutrophils # Man Lymphocytes # (Manual) Monocytes # (Manual) PT INR D-Dimer ABG pH POC ABG pCO2 POC ABG pO2 ABG pO2 ABG HCO3 ABG O2 Saturation ABG Base Excess ABG Hemoglobin ABG Oxyhemoglobin ABG Sodium ABG Potassium ABG Glucose Oxyhemoglobin Sodium Potassium Chloride Carbon Dioxide BUN Glucose POC Glucose 162 H Lactic Acid Phosphorus Magnesium Ferritin Lactate Dehydrogenase C-Reactive Protein NT-Pro-B Natriuret Pep Total Protein Albumin Triglycerides 267 H Arterial Blood Glucose Ur Specific [place] Coronavirus (PCR) Assessment and Plan Assessment and Plan This is a 61-year-old male with past medical history of HTN and DM admitted for sepsis and acute hypoxic respiratory failure 2/2 COVID pneumonia requiring ventilatory support. #Encephalopathy . Multifactorial - Intubated and sedated on propofol and fentanyl, - Failed SAT this am - Avoid benzodiazepine to reduce the possibility of delirium - Ct brain is unremarkable -suggest MRI and EEG -cut down sedation as possible -seizure precaution -treat underlying infection # Hypertension - BP stable this am - 03/09 Echocardiogram shows a mildly dilated ascending aorta, normal LV systolic function, mild concentric LVH, LVEF 60 to 65% - Continue PO Hydralazine - PRN Antihypertensive for SBP above 160 - Continue Blood pressure monitoring per protocol #Acute Hypoxic Respiratory Failure #COVID Pneumonia - Intubated on 03/10 due to worsen hypoxia on BIPAP - COVID swab positive - CXR showed bilateral patchy infiltrates - CT chest shows severe patchy multifocal groundglass airspace disease - Vent setting:PRVC-50%,8,25,450 - AM ABG pending - CCM consulted, appreciate recommendations - Continue IV Steroids and Nebs per CCM - Additional IV lasix today, plan to keep patient net negative for better lung compliance - VAP bundle addressed - Aspiration precaution HOB above 30 - Daily SBT and SAT trials as tolerated - Daily ABG and CXR - Continue SPO2 monitoring for SPO2 goal above 92% #GI:TF - Continue enteral nutrition - Nutrition consulted - Continue PPI and BR #Hyperkalemia - X1 dose of Kayaxalated today - Repeat BMp ordered - Strict intake and output - Avoid nephrotoxic medications; Renally dose medications - Good in place - Monitor and replace electrolytes as needed -Trend BMP #Elevated D-dimer - Most likely due to COVID - Bilateral lower extremity ultrasounds negative for DVT, superficial thrombus in left gastrocnemius vein - CTA chest shows no gross pulm embolism - H&H stable - Continue AC- Lovenox SubQ - SCDs to BLE while in bed - Transfuse hemoglobin less than 7 - Monitor for signs of bleeding #Sepsis #COVID Pneumonia #Leukocytosis #Lactic Acidosis- Resolved - COVID PCR positive - UA neg, Blood cultures and Sputum culture NGTD - Infectious disease consulted, appreciate recommendation - S/p Actemra 03/10/2021 - Continue IV remdesivir for 5 days - Dexamethasone x10 days - Prophylactic anticoagulation per hospital protocol - Patient remains afebrile, WBCs downstrending - Monitor WBC and temperature curve - Trend CBC #Endo:Hyperglycemia #h/o DM - Patient on IV steroids - Continue high dose SSI Q6hrs - Additional Short acting insulin Q6hrs - Basal insulin increased to BID PLAN 1- EEG 2- MRI brain with gd 3-Seizure precaution 4- treat underlying infection 5- Cut down sedation as possible The high probability of a clinically significant, sudden or life threatening deterioration of the [multi] system(s) required my full and direct attention, intervention and personal management. The aggregate critical care time was [60] minutes. This time is in addition to time spent performing reported procedures but includes the following: [x] Data Review and interpretation [x] Patient assessment and monitoring of vital signs [x] Documentation [x] Medication orders and management Disposition Plan: ICU Total Time Spent with Patient (Minutes): 60
[2021-03-16] MEDS ORDERED: CEFEPIME/NS 2 GM/100 ML 2 GM/100 ML BAG IV SCH (09:00)
[2021-03-16] MEDS: BUDESONIDE 0.25 MG/2 ML NEBU IH SCH ×2 (09:25→23:41)
[2021-03-16] MEDS: ARFORMOTEROL 15 MCG/2 ML NEBU IH SCH ×2 (09:25→23:41)
[2021-03-16] MEDS ORDERED: VANCOMYCIN 1,750 MG in SODIUM CHLORIDE 0.9% 500 ML 500 ML IV SCH (09:30)
[2021-03-16] MEDS: ENOXAPARIN 100 MG/1 ML INJ SUB-Q SCH ×2 (09:39→22:29)
[2021-03-16] MEDS: ASCORBIC ACID 500 MG TAB PO SCH ×2 (09:39→22:29)
[2021-03-16] MEDS: ZINC SULFATE 220 MG CAP PO SCH ×2 (09:39→22:32)
[2021-03-16] MEDS: FAMOTIDINE 20 MG TAB FEEDTUBE SCH ×2 (09:39→22:30)
[2021-03-16] MEDS: SENNOSIDES/DOCUSATE SODIUM 8.6/50 MG TAB FEEDTUBE SCH ×2 (09:39→22:31)
[2021-03-16] MEDS: INSULIN GLARGINE 100 UNITS/ML SUB-Q SCH ×2 (10:28→22:30)
[2021-03-16] MEDS: FREE WATER PO SCH ×4 (10:28→22:31)
--- NOTE | 2021-03-16 10:50 | Progress Note ---
<DEBBY ELLISON - Last Filed: 03/16/21 12:05> Assessment and Plan Assessment and plan: This is a 61-year-old male with past medical history of HTN and DM admitted for sepsis and acute hypoxic respiratory failure 2/2 COVID pneumonia requiring ventilatory support. Hospital Course to Date: 03/09: The patient was seen and evaluated today, and he was found to be hemodynamically stable. The patient is currently on BiPAP for possible COVID-19 pneumonia. He was started on Lovenox 1mg/kg for DVT ppx in the setting of d- dimer > 10,000. Infectious Disease was consulted. The patient is pending a TTE. 03/10: No acute events overnight, patient was intubated in the afternoon transferred to ICU 03/11: Patient started on Lantus, free water flushes increased, propofol drip resumed and oral antihypertensive added. 03/12: lantus increased, k at 5, will monitor. I updated his family and his stated that he is not vaccinated. He does have HTN and she will call the RN to update home medications. She did say he takes bystolic and amlopine. She inquired about ventilator and lab work. She had no further questions. 03/13: KVNG overnight. Patient remains hyperglycemic, basal insulin adjusted and increased to Q12hrs. Patient is overall net positive since admit X1 dose of IV lasix, repeat BMP this afternoon. 03/14: Failed SAT this am due to increase agitation, tachycardia and hypertension. Remains on propofol and fentanyl gtt. Hyperkalemia treated with PO kayaxalate. Patient responded to IV lasix yesterday additional dose again today for a net negative balance. Repeat BMP this afternoon. Insulin adjusted for hyperglycemia. 03/15: Remains encephalopathic, not following commansd. Orders placed for CT head/Brain and Neuro consulted. Rectal bleeding subsided, most likely due to hemorrhoids. H&H is stable will continue to monitor. Kayaxexalate for high K, repeat labs 4 to 6hrs post treatment. 03/16: Still agiated this am, CT head with no acute Abn. CXR and ABG noted- evolving pna and worsening hypoxia, now with low grade fevers. Sputum culture ordered, IV Abx added, ID on cosult. Assessment and Plan #Neuro:Acute Encephalopathy - Intubated and sedated on propofol and fentanyl, RASS -2 - Titrate sedation for RASS goal of 0 to -1 - Failed SAT, not tolerating sedation wean - CT head/brain no acute Abn. - Seroquel added, monitor Qtc - Avoid benzodiazepine to reduce the possibility of delirium - Prn analgesia for CPOT greater than 3 - Maintenance of sleep-wake cycle - Neurology on consult #CV: Hypertension - BP stable this am - 03/09 Echocardiogram shows a mildly dilated ascending aorta, normal LV systolic function, mild concentric LVH, LVEF 60 to 65% - Continue PO Hydralazine - PRN Antihypertensive for SBP above 160 - Continue Blood pressure monitoring per protocol #Acute Hypoxic Respiratory Failure #COVID Pneumonia - Intubated on 03/10 due to worsen hypoxia on BIPAP - COVID swab positive - CXR showed bilateral patchy infiltrates - CT chest shows severe patchy multifocal groundglass airspace disease - Vent setting:PRVC-50%,8,25,450 - AM ABG pending - CCM consulted, appreciate recommendations - Continue IV Steroids and Nebs per CCM - Additional IV lasix today, plan to keep patient net negative for better lung compliance - VAP bundle addressed - Aspiration precaution HOB above 30 - Daily SBT and SAT trials as tolerated - Daily ABG and CXR - Continue SPO2 monitoring for SPO2 goal above 92% #GI:TF - Continue enteral nutrition - Nutrition consulted - Continue PPI and BR #Hypernatremia #Hyperkalemia-improved - FWF added - Repeat BMp ordered - Strict intake and output - Avoid nephrotoxic medications; Renally dose medications - Good in place - Monitor and replace electrolytes as needed -Trend BMP #Elevated D-dimer - Most likely due to COVID - Bilateral lower extremity ultrasounds negative for DVT, superficial thrombus in left gastrocnemius vein - CTA chest shows no gross pulm embolism - H&H stable - Continue AC- Lovenox SubQ - SCDs to BLE while in bed - Transfuse hemoglobin less than 7 - Monitor for signs of bleeding #Sepsis #COVID Pneumonia #Leukocytosis #Lactic Acidosis- Resolved - COVID PCR positive - UA neg, Blood cultures and Sputum culture NGTD - Infectious disease consulted, appreciate recommendation - S/p Actemra 03/10/2021 - Continue IV remdesivir for 5 days - Dexamethasone x10 days - Low grade temp this am - repeat Sputum culture - IV Abx added - Monitor WBC and temperature curve - Trend CBC #Endo:Hyperglycemia #h/o DM - Patient on IV steroids - Continue high dose SSI Q6hrs - Additional Short acting insulin Q6hrs - Basal insulin increased to BID The high probability of a clinically significant, sudden or life threatening deterioration of the [multi] system(s) required my full and direct attention, intervention and personal management. The aggregate critical care time was [60] minutes. This time is in addition to time spent performing reported procedures but includes the following: [x] Data Review and interpretation [x] Patient assessment and monitoring of vital signs [x] Documentation [x] Medication orders and management Disposition Plan: ICU Total Time Spent with Patient (Minutes): 60 History Interval history: Patient seen and examined at the bedside. Remains intutbated and agitated this am, still on propofol and fent. Had periods of low SPO2 overnight, Fio2 increased to 50%. Now will low grade temp and tachycardia this am. Hospitalist Physical - Constitutional Vitals: Temp Pulse Resp BP Pulse Ox 100.2 F H 114 H 25 H 114/69 95 03/16/21 08:00 03/16/21 10:30 03/16/21 10:30 03/16/21 10:30 03/16/21 10:30 General appearance: Present: mild distress, well-nourished, obese, other (Intub ated and sedated) - EENT Eyes: Present: PERRL - Respiratory Respiratory effort: accessory muscle use Respiratory: bilateral: rhonchi - Cardiovascular Rhythm: regular Heart Sounds: Present: S1 & S2 - Extremities Extremities: no ischemia, pulses intact, pulses symmetrical Extremity abnormal: edema - Peripheral Assessment Generalized Edema Type: Non-pitting Edema Degree: 2+ Capillary Refill: < 3 seconds Skin Temperature: Warm Peripheral Pulses: within normal limits - Abdominal General gastrointestinal: soft, non-distended, normal bowel sounds - Integumentary Integumentary: Present: warm, dry - Psychiatric Psychiatric: other (Intubated and sedated) - Neurologic Neurologic: other (Intubated and sedated) - Allied Health Allied health notes reviewed: nursing Results - Labs CBC & Chem 7: 03/16/21 04:11 03/16/21 04:11 Labs: Laboratory Last Values WBC 11.9 K/mm3 (4.5-11.0) H 03/16/21 04:11 RBC 4.78 M/mm3 (3.65-5.03) 03/16/21 04:11 Hgb 13.5 gm/dl (11.8-15.2) 03/16/21 04:11 Hct 44.5 % (35.5-45.6) 03/16/21 04:11 MCV 93 fl (84-94) 03/16/21 04:11 MCH 28 pg (28-32) 03/16/21 04:11 MCHC 30 % (32-34) L 03/16/21 04:11 RDW 15.0 % (13.2-15.2) 03/16/21 04:11 Plt Count 335 K/mm3 (140-440) 03/16/21 04:11 Add Manual Diff Complete 03/10/21 04:29 Total Counted 100 03/10/21 04:29 Seg Neuts % (Manual) 94.0 % (40.0-70.0) H 03/10/21 04:29 Band Neutrophils % 0 % 03/10/21 04:29 Lymphocytes % (Manual) 1.0 % (13.4-35.0) L 03/10/21 04:29 Reactive Lymphs % (Man) 0 % 03/10/21 04:29 Monocytes % (Manual) 5.0 % (0.0-7.3) 03/10/21 04:29 Eosinophils % (Manual) 0 % (0.0-4.3) 03/10/21 04:29 Basophils % (Manual) 0 % (0.0-1.8) 03/10/21 04:29 Metamyelocytes % 0 % 03/10/21 04:29 Myelocytes % 0 % 03/10/21 04:29 Promyelocytes % 0 % 03/10/21 04:29 Blast Cells % 0 % 03/10/21 04:29 Nucleated RBC % 3.0 % (0.0-0.9) H 03/10/21 04:29 Seg Neutrophils # Man 19.4 K/mm3 (1.8-7.7) H 03/10/21 04:29 Band Neutrophils # 0.0 K/mm3 03/10/21 04:29 Lymphocytes # (Manual) 0.2 K/mm3 (1.2-5.4) L 03/10/21 04:29 Abs React Lymphs (Man) 0.0 K/mm3 03/10/21 04:29 Monocytes # (Manual) 1.0 K/mm3 (0.0-0.8) H 03/10/21 04:29 Eosinophils # (Manual) 0.0 K/mm3 (0.0-0.4) 03/10/21 04:29 Basophils # (Manual) 0.0 K/mm3 (0.0-0.1) 03/10/21 04:29 Metamyelocytes # 0.0 K/mm3 03/10/21 04:29 Myelocytes # 0.0 K/mm3 03/10/21 04:29 Promyelocytes # 0.0 K/mm3 03/10/21 04:29 Blast Cells # 0.0 K/mm3 03/10/21 04:29 WBC Morphology Not Reportable 03/10/21 04:29 Hypersegmented Neuts Not Reportable 03/10/21 04:29 Hyposegmented Neuts Not Reportable 03/10/21 04:29 Hypogranular Neuts Not Reportable 03/10/21 04:29 Smudge Cells Not Reportable 03/10/21 04:29 Toxic Granulation Not Reportable 03/10/21 04:29 Toxic Vacuolation Not Reportable 03/10/21 04:29 Dohle Bodies Not Reportable 03/10/21 04:29 Pelger-Huet Anomaly Not Reportable 03/10/21 04:29 Mely Rods Not Reportable 03/10/21 04:29 Platelet Estimate Consistent w auto 03/10/21 04:29 Clumped Platelets Not Reportable 03/10/21 04:29 Plt Clumps, EDTA Not Reportable 03/10/21 04:29 Large Platelets Not Reportable 03/10/21 04:29 Giant Platelets Not Reportable 03/10/21 04:29 Platelet Satelliting Not Reportable 03/10/21 04:29 Plt Morphology Comment Not Reportable 03/10/21 04:29 RBC Morphology Normal 03/10/21 04:29 Dimorphic RBCs Not Reportable 03/10/21 04:29 Polychromasia Not Reportable 03/10/21 04:29 Hypochromasia Not Reportable 03/10/21 04:29 Poikilocytosis Not Reportable 03/10/21 04:29 Anisocytosis Not Reportable 03/10/21 04:29 Microcytosis Not Reportable 03/10/21 04:29 Macrocytosis Not Reportable 03/10/21 04:29 Spherocytes Not Reportable 03/10/21 04:29 Pappenheimer Bodies Not Reportable 03/10/21 04:29 Sickle Cells Not Reportable 03/10/21 04:29 Target Cells Not Reportable 03/10/21 04:29 Tear Drop Cells Not Reportable 03/10/21 04:29 Ovalocytes Not Reportable 03/10/21 04:29 Helmet Cells Not Reportable 03/10/21 04:29 [place] Bodies Not Reportable 03/10/21 04:29 [place] Rings Not Reportable 03/10/21 04:29 [place] Cells Not Reportable 03/10/21 04:29 Bite Cells Not Reportable 03/10/21 04:29 Crenated Cell Not Reportable 03/10/21 04:29 Elliptocytes Not Reportable 03/10/21 04:29 Acanthocytes (Spur) Not Reportable 03/10/21 04:29 Rouleaux Not Reportable 03/10/21 04:29 Hemoglobin C Crystals Not Reportable 03/10/21 04:29 Schistocytes Not Reportable 03/10/21 04:29 Malaria parasites Not Reportable 03/10/21 04:29 Shaheen Bodies Not Reportable 03/10/21 04:29 Hem Pathologist Commnt No 03/10/21 04:29 PT 16.1 Sec. (12.2-14.9) H 03/08/21 20:24 INR 1.17 (0.87-1.13) H 03/08/21 20:24 APTT 28.0 Sec. (24.2-36.6) 03/08/21 20:24 D-Dimer 1781.79 ng/mlDDU (0-234) H 03/15/21 06:06 ABG pH 7.410 pH Units (7.350-7.450) 03/15/21 14:05 POC ABG pCO2 71.9 mmHg (32.0-48.0) H 03/12/21 21:54 ABG pCO2 59.1 mm Hg 03/15/21 14:05 POC ABG pO2 53.6 mmHg (83-108) L 03/12/21 21:54 ABG pO2 52.1 mm Hg (80.0-90.0) L 03/15/21 14:05 POC ABG HCO3 30.0 03/12/21 21:54 ABG HCO3 36.6 mmol/L (20.0-26.0) H 03/15/21 14:05 ABG O2 Saturation 87.6 % (95.0-99.0) L 03/15/21 14:05 ABG O2 Content 18.3 (0.0-44) 03/15/21 14:05 POC ABG Base Excess 0.5 03/12/21 21:54 ABG Base Excess 9.5 mmol/L (-2.0-3.0) H 03/15/21 14:05 ABG Hemoglobin 15.2 gm/dl (14.0-18.0) 03/15/21 14:05 ABG Oxyhemoglobin 84.8 (94-98) L 03/12/21 21:54 ABG Carboxyhemoglobin 1.4 % (0.0-5.0) 03/15/21 14:05 ABG Methemoglobin 0.8 % (0.0-1.5) 03/15/21 14:05 ABG Sodium 134.2 mmol/L (136.0-145.0) L 03/12/21 21:54 ABG Potassium 4.9 mmol/L (3.40-4.50) H 03/12/21 21:54 ABG Chloride 99.0 mmol/L (98-107) 03/12/21 21:54 ABG Glucose 306 mg/dL (65-95) H 03/12/21 21:54 Oxyhemoglobin 85.7 % (95.0-99.0) L 03/15/21 14:05 Carboxyhemoglobin 0.6 (0.5-1.5) 03/12/21 21:54 FiO2 40 % 03/15/21 14:05 FiO2 % 50.0 03/12/21 21:54 Sodium 151 mmol/L (137-145) H 03/16/21 04:11 Potassium 4.4 mmol/L (3.6-5.0) 03/16/21 04:11 Chloride 106.5 mmol/L (98-107) 03/16/21 04:11 Carbon Dioxide 35 mmol/L (22-30) H 03/16/21 04:11 Anion Gap 14 mmol/L 03/16/21 04:11 BUN 48 mg/dL (9-20) H 03/16/21 04:11 Creatinine 0.9 mg/dL (0.8-1.3) 03/16/21 04:11 Estimated GFR > 60 ml/min 03/16/21 04:11 BUN/Creatinine Ratio 53 % 03/16/21 04:11 Glucose 152 mg/dL (75-100) H 03/16/21 04:11 POC Glucose 162 mg/dL (70-105) H 03/16/21 05:26 Lactic Acid 1.90 mmol/L (0.7-2.0) 03/08/21 23:51 Calcium 8.6 mg/dL (8.4-10.2) 03/16/21 04:11 Phosphorus 4.80 mg/dL (2.5-4.5) H D 03/15/21 06:06 Magnesium 3.00 mg/dL (1.7-2.3) H 03/15/21 06:06 Ferritin 976.4 ng/mL (30.0-300.0) H 03/15/21 04:00 Total Bilirubin 0.20 mg/dL (0.1-1.2) 03/12/21 08:03 AST 10 units/L (5-40) 03/12/21 08:03 ALT 16 units/L (7-56) 03/12/21 08:03 Alkaline Phosphatase 77 units/L (35-129) 03/12/21 08:03 Lactate Dehydrogenase 630 units/L (91-180) H 03/15/21 06:06 C-Reactive Protein 0.80 mg/dL (0.00-1.30) 03/15/21 06:06 NT-Pro-B Natriuret Pep 1053 pg/mL (0-900) H 03/08/21 20:24 Total Protein 6.0 g/dL (6.3-8.2) L 03/12/21 08:03 Albumin 2.9 g/dL (3.9-5) L 03/12/21 08:03 Albumin/Globulin Ratio 0.9 % 03/12/21 08:03 Triglycerides 267 mg/dL (2-149) H 03/16/21 04:11 Procalcitonin 0.14 ng/mL (<0.15) 03/10/21 09:47 Arterial Blood Glucose 306 mg/dL (65-95) H 03/12/21 21:54 Arterial Blood Ionized Calcium 5.0 mg/dL (4.6-5.3) 03/12/21 21:54 Urine Color Yellow (Yellow) 03/09/21 04:10 Urine Turbidity Slightly-cloudy (Clear) 03/09/21 04:10 Urine pH 5.0 (5.0-7.0) 03/09/21 04:10 Ur Specific [place] 1.041 (1.003-1.030) H 03/09/21 04:10 Urine Protein 100 mg/dl mg/dL (Negative) 03/09/21 04:10 Urine Glucose (UA) Neg mg/dL (Negative) 03/09/21 04:10 Urine Ketones Neg mg/dL (Negative) 03/09/21 04:10 Urine Blood Mod (Negative) 03/09/21 04:10 Urine Nitrite Neg (Negative) 03/09/21 04:10 Urine Bilirubin Neg (Negative) 03/09/21 04:10 Urine Urobilinogen 2.0 mg/dL (<2.0) 03/09/21 04:10 Ur Leukocyte Esterase Neg (Negative) 03/09/21 04:10 Urine WBC (Auto) 4.0 /HPF (0.0-6.0) 03/09/21 04:10 Urine RBC (Auto) 1.0 /HPF (0.0-6.0) 03/09/21 04:10 Urine Bacteria (Auto) 1+ /HPF (Negative) 03/09/21 04:10 Urine Mucus Few /HPF 03/09/21 04:10 Coronavirus (PCR) Positive (Negative) A 03/09/21 08:00 Good/IV: Voiding Method Indwelling Catheter Active Medications - Current Medications Current Medications: Generic Name Dose Route Start Last Admin Trade Name Freq PRN Reason Stop Dose Admin Acetaminophen 650 mg 03/09/21 01:26 03/16/21 08:07 Acetaminophen 325 Mg Tab PO 650 mg Q4H PRN Administration Pain MILD(1-3)/Fever >100.5/RAYO Albuterol 2.5 mg 03/09/21 01:26 Albuterol 2.5 Mg/3 Ml Nebu IH Q4HRT PRN Shortness Of Breath Albuterol/Ipratropium 1 ampul 03/11/21 08:00 03/16/21 07:51 Ipratropium/Albuterol Sulfate 3 Ml Ampul.Neb IH 1 ampul TIDRT BLANCA Administration Arformoterol Tartrate 15 mcg 03/11/21 20:00 03/16/21 09:25 Arformoterol 15 Mcg/2 Ml Nebu IH Not Given Q12HRT BLANCA Ascorbic Acid 500 mg 03/10/21 14:00 03/16/21 09:39 Ascorbic Acid 500 Mg Tab PO 500 mg BID BLANCA Administration Budesonide 0.25 mg 03/11/21 20:00 03/16/21 09:25 Budesonide 0.25 Mg/2 Ml Nebu IH Not Given Q12HRT [facility] Dextrose 0 ml 03/09/21 01:26 Dextrose 50% In Water (25gm) 50 Ml Syringe IV Q30MIN PRN Hypoglycemia Protocol Enoxaparin Sodium 100 mg 03/09/21 10:00 03/16/21 09:39 Enoxaparin 100 Mg/1 Ml Inj SUB-Q 100 mg Q12HR [facility] Administration Protocol Famotidine 20 mg 03/12/21 22:00 03/16/21 09:39 Famotidine 20 Mg Tab FEEDTUBE 20 mg BID [facility] Administration Fentanyl 50 mcg 03/10/21 16:47 Fentanyl 100 Mcg/2 Ml Inj IV Q10MIN PRN ANALGESIA Hydralazine HCl 10 mg 03/09/21 01:36 03/10/21 03:56 Hydralazine 20 Mg/1 Ml Inj IV 10 mg Q6H PRN Administration Blood Pressure Hydralazine HCl 50 mg 03/11/21 17:00 03/16/21 05:39 Hydralazine 25 Mg Tab PO 50 mg Q8HR [facility] Administration Hydrophilic Ointment 1 applic 03/10/21 15:39 Lip Therapy Vaseline TP Q2HR PRN Dry Lips Fentanyl Citrate 2,000 mcg in 100 mls @ 5.897 mls/hr 03/10/21 17:00 03/16/21 08:06 Fentanyl Drip Premix IV 4 mcg/kg/hr TITR BLANCA 23.587 mls/hr Administration Protocol 1 MCG/KG/HR Propofol 1,000 mg in 100 mls @ 3.507 mls/hr 03/11/21 17:00 03/16/21 08:07 Diprivan 10 Mg/Ml IV 45 mcg/kg/min TITR BLANCA 31.563 mls/hr Administration Protocol 5 MCG/KG/MIN Cefepime HCl 2 gm in 100 mls @ 200 mls/hr 03/16/21 09:00 03/16/21 09:40 Cefepime/Ns 2 Gm/100 Ml IV 03/16/21 12:00 200 mls/hr ONCE@0900 [facility] Administration Protocol Vancomycin HCl 1,750 mg/ 535 mls @ 333 mls/hr 03/16/21 09:30 03/16/21 09:39 Sodium Chloride IV 03/16/21 12:00 333 mls/hr ONCE@0930 [facility] Administration Protocol Insulin Glargine 25 units 03/14/21 10:00 03/16/21 10:28 Insulin Glargine 100 Units/Ml SUB-Q 25 units BID [facility] Administration Insulin Human Lispro 0 unit 03/11/21 18:00 03/16/21 05:40 Insulin Lispro 100 Unit/Ml SUB-Q 3 unit Q6HR [facility] Administration Protocol Insulin Human Regular 5 units 03/14/21 12:00 03/16/21 05:40 Insulin Regular, Human 100 Units/1 Ml SUB-Q 5 units Q6HR [facility] Administration Labetalol HCl 10 mg 03/12/21 21:13 Labetalol 20 Mg/4 Ml Inj IV Q6H PRN Blood Pressure Methylprednisolone Sodium Succinate 60 mg 03/10/21 22:00 03/16/21 05:39 Methylprednisolone Sod Succinate 125 Mg/2 Ml Inj IV 60 mg Q8HR [facility] Administration Midazolam HCl 2 mg 03/15/21 08:49 03/16/21 02:26 Midazolam 2 Mg/2 Ml Inj IV 2 mg Q2H PRN Administration VENT SYNCHRONY Multi-Ingred Cream/Lotion/Oil/Oint 1 applic 03/10/21 15:39 Mineral Oil/Petrolatum, White Ophth Oint 3.5 Gm OU Q4HR PRN Dry Eye(s) Ondansetron HCl 4 mg 03/09/21 01:26 Ondansetron 4 Mg/2 Ml Inj IV Q8H PRN Nausea And Vomiting Quetiapine Fumarate 50 mg 03/16/21 11:00 Quetiapine 25 Mg Tab PO BID BLANCA Senna/Docusate Sodium 1 tab 03/10/21 22:00 03/16/21 09:39 Sennosides/Docusate Sodium 8.6/50 Mg Tab FEEDTUBE 1 tab BID [facility]AN[facility] Administration Sodium Chloride 10 ml 03/09/21 10:00 03/16/21 09:39 Sodium Chloride 0.9% 10 Ml Flush Syringe IV 10 ml BID [facility]AN[facility] Administration Sodium Chloride 10 ml 03/09/21 01:26 Sodium Chloride 0.9% 10 Ml Flush Syringe IV PRN PRN LINE FLUSH Zinc Sulfate 220 mg 03/10/21 14:00 03/16/21 09:39 Zinc Sulfate 220 Mg Cap PO 220 mg BID [facility]AN[facility] Administration Nutrition/Malnutrition Assess - Dietary Evaluation Nutrition/Malnutrition Findings: Nutrition Notes Start: 03/09/21 08:49 Freq: Status: Active Protocol: Document 03/14/21 10:48 BRYANNA (Rec: 03/14/21 11:07 BRYANNA [id number]) Nutrition Notes Initial or Follow up Brief Note Current Diet TF-Glucerna 1.2 Tyson @ 66 ml/hr (since L 03/14). Height 5 ft 11 in Weight 117 kg [place] Body Weight (kg) 78.18 BMI 35.9 Weight change and time frame No body weight change reported . Weight Status Obese Subjective/Other Information RD consult for TF change requested by RN. RN states that Pt's bG has been high and request a change to Glucerna, since no kidney complications are present. Percent of energy/protein needs met: Prescribed Glucerna 1.2 Tyson @ 66 ml/hr provides for energy/ protein needs (1911 Kcal/96 g) during LOS, 100% Kcal; 75% AA . #1 Nutrition Diagnosis Inadequate oral intake Comments: RN states that Pt's bG has been high and request a change to Glucerna, since no kidney complications are present. Diagnosis Progress(for reassessment Continues documentation) Is patient on ventilator? Yes Is Patient Ambulatory and/or Out of Bed No REE-([place]-confined to bed) [phone] Calculation Used for Recommendations 70-80% energy needs Additional Notes Energy needs: [phone] kcal/ day Pro needs 1.3g/kg adjBW: 127g/ day Fluid needs 1ml/kcal Nutrition Intervention Nutrition Support: Change to Glucerna 1.2 Tyson @66 ml/hr. Flush: 100 ml water Q 4 hr, or as per MD. Kcal 1,911 Protein (gm) 96 Carbohydrates (gm) 182 Fat (gm) 96 Fluid (mL) 1,282 Fiber (gm) 26 % RDI: 100% Kcal; 75% AA. Goal #1 Provide at least 75% of energy /protein needs through Enteral Feeding during LOS. Follow-Up By: 03/17/21 Additional Comments Continue monitoring TF tolerance and BM. <RAFAEL DOMINGUEZ - Last Filed: 03/18/21 12:14> Assessment and Plan Assessment and plan: I saw and evaluated the patient. Discussed with the nurse practitioner and agree with their findings and plan as documented in this note. Hospitalist Physical - Constitutional Vitals: Temp Pulse Resp BP Pulse Ox 99.0 F 117 H 25 H 185/104 97 03/18/21 07:23 03/18/21 07:46 03/18/21 07:46 03/18/21 07:46 03/18/21 07:46 Results - Labs CBC & Chem 7: 03/18/21 04:50 03/18/21 04:50 Labs: Laboratory Last Values WBC 9.7 K/mm3 (4.5-11.0) 03/18/21 04:50 RBC 4.07 M/mm3 (3.65-5.03) 03/18/21 04:50 Hgb 12.2 gm/dl (11.8-15.2) 03/18/21 04:50 Hct 38.3 % (35.5-45.6) 03/18/21 04:50 MCV 94 fl (84-94) 03/18/21 04:50 MCH 30 pg (28-32) 03/18/21 04:50 MCHC 32 % (32-34) 03/18/21 04:50 RDW 14.9 % (13.2-15.2) 03/18/21 04:50 Plt Count 313 K/mm3 (140-440) 03/18/21 04:50 Lymph % (Auto) 12.6 % (13.4-35.0) L 03/17/21 04:40 [place] % (Auto) 11.3 % (0.0-7.3) H 03/17/21 04:40 Eos % (Auto) 0.4 % (0.0-4.3) 03/17/21 04:40 Baso % (Auto) 0.8 % (0.0-1.8) 03/17/21 04:40 Lymph # (Auto) 1.8 K/mm3 (1.2-5.4) 03/17/21 04:40 [place] # (Auto) 1.6 K/mm3 (0.0-0.8) H 03/17/21 04:40 Eos # (Auto) 0.1 K/mm3 (0.0-0.4) 03/17/21 04:40 Baso # (Auto) 0.1 K/mm3 (0.0-0.1) 03/17/21 04:40 Add Manual Diff Complete 03/10/21 04:29 Total Counted 100 03/10/21 04:29 Seg Neutrophils % 74.9 % (40.0-70.0) H 03/17/21 04:40 Seg Neuts % (Manual) 94.0 % (40.0-70.0) H 03/10/21 04:29 Band Neutrophils % 0 % 03/10/21 04:29 Lymphocytes % (Manual) 1.0 % (13.4-35.0) L 03/10/21 04:29 Reactive Lymphs % (Man) 0 % 03/10/21 04:29 Monocytes % (Manual) 5.0 % (0.0-7.3) 03/10/21 04:29 Eosinophils % (Manual) 0 % (0.0-4.3) 03/10/21 04:29 Basophils % (Manual) 0 % (0.0-1.8) 03/10/21 04:29 Metamyelocytes % 0 % 03/10/21 04:29 Myelocytes % 0 % 03/10/21 04:29 Promyelocytes % 0 % 03/10/21 04:29 Blast Cells % 0 % 03/10/21 04:29 Nucleated RBC % 3.0 % (0.0-0.9) H 03/10/21 04:29 Seg Neutrophils # 10.5 K/mm3 (1.8-7.7) H 03/17/21 04:40 Seg Neutrophils # Man 19.4 K/mm3 (1.8-7.7) H 03/10/21 04:29 Band Neutrophils # 0.0 K/mm3 03/10/21 04:29 Lymphocytes # (Manual) 0.2 K/mm3 (1.2-5.4) L 03/10/21 04:29 Abs React Lymphs (Man) 0.0 K/mm3 03/10/21 04:29 Monocytes # (Manual) 1.0 K/mm3 (0.0-0.8) H 03/10/21 04:29 Eosinophils # (Manual) 0.0 K/mm3 (0.0-0.4) 03/10/21 04:29 Basophils # (Manual) 0.0 K/mm3 (0.0-0.1) 03/10/21 04:29 Metamyelocytes # 0.0 K/mm3 03/10/21 04:29 Myelocytes # 0.0 K/mm3 03/10/21 04:29 Promyelocytes # 0.0 K/mm3 03/10/21 04:29 Blast Cells # 0.0 K/mm3 03/10/21 04:29 WBC Morphology Not Reportable 03/10/21 04:29 Hypersegmented Neuts Not Reportable 03/10/21 04:29 Hyposegmented Neuts Not Reportable 03/10/21 04:29 Hypogranular Neuts Not Reportable 03/10/21 04:29 Smudge Cells Not Reportable 03/10/21 04:29 Toxic Granulation Not Reportable 03/10/21 04:29 Toxic Vacuolation Not Reportable 03/10/21 04:29 Dohle Bodies Not Reportable 03/10/21 04:29 Pelger-Huet Anomaly Not Reportable 03/10/21 04:29 Mely Rods Not Reportable 03/10/21 04:29 Platelet Estimate Consistent w auto 03/10/21 04:29 Clumped Platelets Not Reportable 03/10/21 04:29 Plt Clumps, EDTA Not Reportable 03/10/21 04:29 Large Platelets Not Reportable 03/10/21 04:29 Giant Platelets Not Reportable 03/10/21 04:29 Platelet Satelliting Not Reportable 03/10/21 04:29 Plt Morphology Comment Not Reportable 03/10/21 04:29 RBC Morphology Normal 03/10/21 04:29 Dimorphic RBCs Not Reportable 03/10/21 04:29 Polychromasia Not Reportable 03/10/21 04:29 Hypochromasia Not Reportable 03/10/21 04:29 Poikilocytosis Not Reportable 03/10/21 04:29 Anisocytosis Not Reportable 03/10/21 04:29 Microcytosis Not Reportable 03/10/21 04:29 Macrocytosis Not Reportable 03/10/21 04:29 Spherocytes Not Reportable 03/10/21 04:29 Pappenheimer Bodies Not Reportable 03/10/21 04:29 Sickle Cells Not Reportable 03/10/21 04:29 Target Cells Not Reportable 03/10/21 04:29 Tear Drop Cells Not Reportable 03/10/21 04:29 Ovalocytes Not Reportable 03/10/21 04:29 Helmet Cells Not Reportable 03/10/21 04:29 [place] Bodies Not Reportable 03/10/21 04:29 Dennis Rings Not Reportable 03/10/21 04:29 Shama Cells Not Reportable 03/10/21 04:29 Bite Cells Not Reportable 03/10/21 04:29 Crenated Cell Not Reportable 03/10/21 04:29 Elliptocytes Not Reportable 03/10/21 04:29 Acanthocytes (Spur) Not Reportable 03/10/21 04:29 Rouleaux Not Reportable 03/10/21 04:29 Hemoglobin C Crystals Not Reportable 03/10/21 04:29 Schistocytes Not Reportable 03/10/21 04:29 Malaria parasites Not Reportable 03/10/21 04:29 Shaheen Bodies Not Reportable 03/10/21 04:29 Hem Pathologist Commnt No 03/10/21 04:29 PT 16.1 Sec. (12.2-14.9) H 03/08/21 20:24 INR 1.17 (0.87-1.13) H 03/08/21 20:24 APTT 28.0 Sec. (24.2-36.6) 03/08/21 20:24 D-Dimer 1359.12 ng/mlDDU (0-234) H 03/17/21 04:40 ABG pH 7.386 pH Units (7.350-7.450) 03/18/21 04:18 POC ABG pCO2 71.9 mmHg (32.0-48.0) H 03/12/21 21:54 ABG pCO2 62.2 mm Hg 03/18/21 04:18 POC ABG pO2 53.6 mmHg (83-108) L 03/12/21 21:54 ABG pO2 59.8 mm Hg (80.0-90.0) L 03/18/21 04:18 POC ABG HCO3 30.0 03/12/21 21:54 ABG HCO3 36.5 mmol/L (20.0-26.0) H 03/18/21 04:18 ABG O2 Saturation 90.7 % (95.0-99.0) L 03/18/21 04:18 ABG O2 Content 14.9 (0.0-44) 03/18/21 04:18 POC ABG Base Excess 0.5 03/12/21 21:54 ABG Base Excess 9.4 mmol/L (-2.0-3.0) H 03/18/21 04:18 ABG Hemoglobin 12.0 gm/dl (14.0-18.0) L 03/18/21 04:18 ABG Oxyhemoglobin 84.8 (94-98) L 03/12/21 21:54 ABG Carboxyhemoglobin 1.4 % (0.0-5.0) 03/18/21 04:18 ABG Methemoglobin 0.6 % (0.0-1.5) 03/18/21 04:18 ABG Sodium 134.2 mmol/L (136.0-145.0) L 03/12/21 21:54 ABG Potassium 4.9 mmol/L (3.40-4.50) H 03/12/21 21:54 ABG Chloride 99.0 mmol/L (98-107) 03/12/21 21:54 ABG Glucose 306 mg/dL (65-95) H 03/12/21 21:54 Oxyhemoglobin 88.9 % (95.0-99.0) L 03/18/21 04:18 Carboxyhemoglobin 0.6 (0.5-1.5) 03/12/21 21:54 FiO2 50 % 03/18/21 04:18 FiO2 % 50.0 03/12/21 21:54 Sodium 145 mmol/L (137-145) 03/18/21 04:50 Potassium 4.5 mmol/L (3.6-5.0) 03/18/21 04:50 Chloride 107.2 mmol/L (98-107) H 03/18/21 04:50 Carbon Dioxide 34 mmol/L (22-30) H 03/18/21 04:50 Anion Gap 8 mmol/L 03/18/21 04:50 BUN 38 mg/dL (9-20) H 03/18/21 04:50 Creatinine 0.7 mg/dL (0.8-1.3) L 03/18/21 04:50 Estimated GFR > 60 ml/min 03/18/21 04:50 BUN/Creatinine Ratio 54 % 03/18/21 04:50 Glucose 136 mg/dL (75-100) H 03/18/21 04:50 POC Glucose 189 mg/dL (70-105) H 03/18/21 11:20 Lactic Acid 1.90 mmol/L (0.7-2.0) 03/08/21 23:51 Calcium 8.5 mg/dL (8.4-10.2) 03/18/21 04:50 Phosphorus 4.80 mg/dL (2.5-4.5) H D 03/15/21 06:06 Magnesium 2.70 mg/dL (1.7-2.3) H 03/17/21 04:40 Ferritin 976.4 ng/mL (30.0-300.0) H 03/15/21 04:00 Total Bilirubin 0.20 mg/dL (0.1-1.2) 03/12/21 08:03 AST 10 units/L (5-40) 03/12/21 08:03 ALT 16 units/L (7-56) 03/12/21 08:03 Alkaline Phosphatase 77 units/L (35-129) 03/12/21 08:03 Lactate Dehydrogenase 630 units/L (91-180) H 03/15/21 06:06 C-Reactive Protein 0.40 mg/dL (0.00-1.30) 03/17/21 04:40 NT-Pro-B Natriuret Pep 1053 pg/mL (0-900) H 03/08/21 20:24 Total Protein 6.0 g/dL (6.3-8.2) L 03/12/21 08:03 Albumin 2.9 g/dL (3.9-5) L 03/12/21 08:03 Albumin/Globulin Ratio 0.9 % 03/12/21 08:03 Triglycerides 267 mg/dL (2-149) H 03/16/21 04:11 Procalcitonin 0.05 ng/mL (<0.15) 03/17/21 04:40 Arterial Blood Glucose 306 mg/dL (65-95) H 03/12/21 21:54 Arterial Blood Ionized Calcium 5.0 mg/dL (4.6-5.3) 03/12/21 21:54 Urine Color Yellow (Yellow) 03/09/21 04:10 Urine Turbidity Slightly-cloudy (Clear) 03/09/21 04:10 Urine pH 5.0 (5.0-7.0) 03/09/21 04:10 Ur Specific [place] 1.041 (1.003-1.030) H 03/09/21 04:10 Urine Protein 100 mg/dl mg/dL (Negative) 03/09/21 04:10 Urine Glucose (UA) Neg mg/dL (Negative) 03/09/21 04:10 Urine Ketones Neg mg/dL (Negative) 03/09/21 04:10 Urine Blood Mod (Negative) 03/09/21 04:10 Urine Nitrite Neg (Negative) 03/09/21 04:10 Urine Bilirubin Neg (Negative) 03/09/21 04:10 Urine Urobilinogen 2.0 mg/dL (<2.0) 03/09/21 04:10 Ur Leukocyte Esterase Neg (Negative) 03/09/21 04:10 Urine WBC (Auto) 4.0 /HPF (0.0-6.0) 03/09/21 04:10 Urine RBC (Auto) 1.0 /HPF (0.0-6.0) 03/09/21 04:10 Urine Bacteria (Auto) 1+ /HPF (Negative) 03/09/21 04:10 Urine Mucus Few /HPF 03/09/21 04:10 Coronavirus (PCR) Positive (Negative) A 03/09/21 08:00 Microbiology: Microbiology 03/17/21 14:27 Tracheal Aspirate Sputum Culture - Preliminary 03/16/21 13:51 Peripheral/Venous Blood Culture - Preliminary NO GROWTH AFTER 24 HOURS 03/16/21 13:51 Peripheral/Venous Blood Culture - Preliminary NO GROWTH AFTER 24 HOURS Good/IV: Voiding Method Indwelling Catheter Active Medications - Current Medications Current Medications: Generic Name Dose Route Start Last Admin Trade Name Freq PRN Reason Stop Dose Admin Acetaminophen 650 mg 03/09/21 01:26 03/17/21 12:08 Acetaminophen 325 Mg Tab PO 650 mg Q4H PRN Administration Pain MILD(1-3)/Fever >100.5/RAYO Albuterol 2.5 mg 03/09/21 01:26 Albuterol 2.5 Mg/3 Ml Nebu IH Q4HRT PRN Shortness Of Breath Albuterol/Ipratropium 1 ampul 03/11/21 08:00 03/18/21 07:47 Ipratropium/Albuterol Sulfate 3 Ml Ampul.Neb IH 1 ampul TIDRT BLANCA Administration Arformoterol Tartrate 15 mcg 03/11/21 20:00 03/18/21 07:47 Arformoterol 15 Mcg/2 Ml Nebu IH 15 mcg Q12HRT BLANCA Administration Ascorbic Acid 500 mg 03/10/21 14:00 03/18/21 10:45 Ascorbic Acid 500 Mg Tab PO 500 mg BID BLANCA Administration Budesonide 0.25 mg 03/11/21 20:00 03/18/21 07:46 Budesonide 0.25 Mg/2 Ml Nebu IH 0.25 mg Q12HRT BLANCA Administration Dextrose 0 ml 03/09/21 01:26 Dextrose 50% In Water (25gm) 50 Ml Syringe IV Q30MIN PRN Hypoglycemia Protocol Enoxaparin Sodium 100 mg 03/09/21 10:00 03/18/21 10:46 Enoxaparin 100 Mg/1 Ml Inj SUB-Q 100 mg Q12HR BLANCA Administration Protocol Famotidine 20 mg 03/12/21 22:00 03/18/21 10:45 Famotidine 20 Mg Tab FEEDTUBE 20 mg BID BLANCA Administration Fentanyl 50 mcg 03/10/21 16:47 Fentanyl 100 Mcg/2 Ml Inj IV Q10MIN PRN ANALGESIA Hydralazine HCl 10 mg 03/09/21 01:36 03/10/21 03:56 Hydralazine 20 Mg/1 Ml Inj IV 10 mg Q6H PRN Administration Blood Pressure Hydralazine HCl 50 mg 03/11/21 17:00 03/18/21 06:24 Hydralazine 25 Mg Tab PO 50 mg Q8HR BLANCA Administration Hydrophilic Ointment 1 applic 03/10/21 15:39 Lip Therapy Vaseline TP Q2HR PRN Dry Lips Fentanyl Citrate 2,000 mcg in 100 mls @ 5.897 mls/hr 03/10/21 17:00 03/18/21 10:42 Fentanyl Drip Premix IV 4 mcg/kg/hr TITR BLANCA 23.587 mls/hr Administration Protocol 1 MCG/KG/HR Propofol 1,000 mg in 100 mls @ 3.507 mls/hr 03/11/21 17:00 03/18/21 10:41 Diprivan 10 Mg/Ml IV 50 mcg/kg/min TITR BLANCA 35.07 mls/hr Titration Protocol 5 MCG/KG/MIN Vancomycin HCl 1,750 mg/ 535 mls @ 333 mls/hr 03/16/21 22:00 03/18/21 10:45 Sodium Chloride IV 333 mls/hr Q12HR [facility] Administration Protocol Cefepime HCl 2 gm in 100 mls @ 200 mls/hr 03/16/21 17:00 03/18/21 06:24 Cefepime/Ns 2 Gm/100 Ml IV 200 mls/hr Q8HR [facility] Administration Protocol Insulin Glargine 25 units 03/14/21 10:00 03/18/21 10:46 Insulin Glargine 100 Units/Ml SUB-Q 25 units BID BLANCA Administration Insulin Human Lispro 0 unit 03/11/21 18:00 03/18/21 06:15 Insulin Lispro 100 Unit/Ml SUB-Q Not Given Q6HR [facility] Protocol Insulin Human Regular 5 units 03/14/21 12:00 03/18/21 06:24 Insulin Regular, Human 100 Units/1 Ml SUB-Q 5 units Q6HR [facility]AN[facility] Administration Labetalol HCl 10 mg 03/12/21 21:13 Labetalol 20 Mg/4 Ml Inj IV Q6H PRN Blood Pressure Methylprednisolone Sodium Succinate 60 mg 03/10/21 22:00 03/18/21 06:23 Methylprednisolone Sod Succinate 125 Mg/2 Ml Inj IV 03/20/21 14:01 60 mg Q8HR BLANCA Administration Midazolam HCl 2 mg 03/15/21 08:49 03/17/21 10:45 Midazolam 2 Mg/2 Ml Inj IV 2 mg Q2H PRN Administration VENT SYNCHRONY Multi-Ingred Cream/Lotion/Oil/Oint 1 applic 03/10/21 15:39 Mineral Oil/Petrolatum, White Ophth Oint 3.5 Gm OU Q4HR PRN Dry Eye(s) Ondansetron HCl 4 mg 03/09/21 01:26 Ondansetron 4 Mg/2 Ml Inj IV Q8H PRN Nausea And Vomiting Quetiapine Fumarate 100 mg 03/17/21 14:00 03/18/21 10:45 Quetiapine 100 Mg Tab PO 100 mg BID BLANCA Administration Senna/Docusate Sodium 1 tab 03/10/21 22:00 03/17/21 21:00 Sennosides/Docusate Sodium 8.6/50 Mg Tab FEEDTUBE 1 tab BID BLANCA Administration Sodium Chloride 10 ml 03/09/21 10:00 03/18/21 10:51 Sodium Chloride 0.9% 10 Ml Flush Syringe IV 10 ml BID BLANCA Administration Sodium Chloride 10 ml 03/09/21 01:26 Sodium Chloride 0.9% 10 Ml Flush Syringe IV PRN PRN LINE FLUSH Zinc Sulfate 220 mg 03/10/21 14:00 03/18/21 10:45 Zinc Sulfate 220 Mg Cap PO 220 mg BID BLANCA Administration Nutrition/Malnutrition Assess - Dietary Evaluation Nutrition/Malnutrition Findings: Nutrition Notes Start: 03/09/21 08:49 Freq: Status: Active Protocol: Document 03/17/21 15:48 [facility] (Rec: 03/17/21 15:55 [facility] [id number]) Nutrition Notes Initial or Follow up Reassessment Current Diagnosis Diabetes,Sepsis,Hypertension, Respiratory Failure Other Pertinent Diagnosis COVID-19 pneu Current Diet TF-Glucerna 1.2 [place] at 66 ml/ hr Labs/Tests POC Glu range: 162-263 Na 148 BUN 42 BG 183 Mg 2.7 Pertinent Medications Propofol at 31.563ml/hr ( provides 833 kcal) Height 5 ft 11 in Weight 117 kg [place] Body Weight (kg) 78.18 BMI 35.9 Weight Status Obese Subjective/Other Information Pt remains on vent support. Pt receiving a lot of calories from propofol at this time. Will decrease TF rate to prevent overfeeding. Pt with a low-grade fever. Burn Absent Trauma Absent Minimum of two criteria No #1 Nutrition Diagnosis Inadequate oral intake Diagnosis Progress(for reassessment Continues documentation) Is patient on ventilator? Yes Is Patient Ambulatory and/or Out of Bed No REE-([facility]-confined to bed) [phone] Calculation Used for Recommendations 70-80% energy needs Additional Notes Energy needs: 8334-6738 kcal/ day Pro needs 1.3g/kg adjBW: 127g/ day Fluid needs 1ml/kcal Nutrition Intervention Nutrition Support: Decrease TF rate to Glucerna 1 .2 at 40ml/hr with 200ml water flush q4h (until hypernatremia resolved). TF + propofol will provide 1985 kcal. Kcal 1,152 Protein (gm) 58 Carbohydrates (gm) 110 Fat (gm) 58 Fluid (mL) 773 Fiber (gm) 15 Goal #1 TF tolerance Goal #2 TF to meet nutrient needs as best possible Follow-Up By: 03/20/21 Additional Comments F/U: TF rate/tolerance, propofol rate, vent status
[2021-03-16] MEDS: QUEtiapine 25 MG TAB PO SCH ×2 (11:30→22:32)
--- NOTE | 2021-03-16 12:57 | Progress Note ---
Assessment and Plan Cultures: SARS CoV2 PCR: positive 03/08/2021 blood culture: no growth 03/10/2021 sputum culture: Usual respiratory marlyn A/P: 61-year-old male with diabetes, hypertension admitted to the hospital with complaints of shortness of breath and feeling weak for the last 1 week: #Sepsis secondary to bilateral pneumonia: secondary to COVID-19. Elevated inflammatory markers. WBC 22.6, creatinine 1.3, ferritin 877, CRP 18.0, LDH 624, procalcitonin 0.18. D-dimer >10k. CTA negative for pulmonary embolism, severe patchy groundglass opacities. #New fever #Acute hypoxic respiratory failure: initially required BiPAP, now intubated, on the vent. #DM #HTN Recs: -new persistent low grade temperatures, at risk of infections given steroids, Actemra use. Blood and sputum cultures, started empiric Cefepime + Vancomycin -Continue steroids per pulm, on solumedrol, would not extend beyond 10 days especially since patient also received Actemra. -completed IV remdesivir -s/p Actemra 03/10/2021 -prophylactic anticoagulation based on d-dimer per hospital protocol -CRP, procalcitonin, CBC with differential in AM Sangita Nicole MD, FACP, [facility] O: [phone] F: [phone] Subjective Date of service: 03/16/21 Principal diagnosis: AHRF; COVID-19 infection; DM II; Bilateral pneumonia; Obesity; HTN Interval history: Persistent low-grade temperatures. Remains on the vent. Objective - Exam Narrative Exam: Physical Exam Constitutional: sedated, intubated, on the vent Head, Ears, Nose: Normocephalic, atraumatic. External ears, nose normal Eyes: Conjunctivae/corneas clear. No icterus. No ptosis. Neck: intubated Oral: intubated Cardiovascular: S1, S2 + Respiratory: AE fair GI: Soft, bowel sounds + Musculoskeletal: No pedal edema, no cyanosis. Skin: No rash or abscess Hem/Lymphatic: No palpable cervical or supraclavicular nodes. No lymphangitis Psych: no agitation Neurological: sedated, intubated, on the vent, exam limited - Constitutional Vitals: Vital Signs Temp Pulse Resp BP Pulse Ox 1008 F H 111 H 23 120/67 94 03/16/21 12:00 03/16/21 12:00 03/16/21 12:00 03/16/21 12:00 03/16/21 12:00 Temperature -Last 24 Hours Temperature 1008 F Temperature 100.2 F Temperature 100.9 F Temperature 100.7 F Temperature 99.6 F Temperature 98 F - Labs CBC & Chem 7: 03/16/21 04:11 03/16/21 04:11 Labs: Abnormal lab results 03/15/21 03/15/21 03/16/21 Range/Units 14:05 17:09 00:32 WBC (4.5-11.0) K/mm3 MCHC (32-34) % ABG pO2 52.1 L (80.0-90.0) mm Hg ABG HCO3 36.6 H (20.0-26.0) mmol/L ABG O2 Saturation 87.6 L (95.0-99.0) % ABG Base Excess 9.5 H (-2.0-3.0) mmol/L Oxyhemoglobin 85.7 L (95.0-99.0) % Sodium (137-145) mmol/L Carbon Dioxide (22-30) mmol/L BUN (9-20) mg/dL Glucose (75-100) mg/dL POC Glucose 263 H 165 H (70-105) mg/dL Triglycerides (2-149) mg/dL 03/16/21 03/16/21 03/16/21 Range/Units 04:11 04:11 04:11 WBC 11.9 H (4.5-11.0) K/mm3 MCHC 30 L (32-34) % ABG pO2 (80.0-90.0) mm Hg ABG HCO3 (20.0-26.0) mmol/L ABG O2 Saturation (95.0-99.0) % ABG Base Excess (-2.0-3.0) mmol/L Oxyhemoglobin (95.0-99.0) % Sodium 151 H (137-145) mmol/L Carbon Dioxide 35 H (22-30) mmol/L BUN 48 H (9-20) mg/dL Glucose 152 H (75-100) mg/dL POC Glucose (70-105) mg/dL Triglycerides 267 H (2-149) mg/dL 03/16/21 03/16/21 Range/Units 05:26 11:35 WBC (4.5-11.0) K/mm3 MCHC (32-34) % ABG pO2 (80.0-90.0) mm Hg ABG HCO3 (20.0-26.0) mmol/L ABG O2 Saturation (95.0-99.0) % ABG Base Excess (-2.0-3.0) mmol/L Oxyhemoglobin (95.0-99.0) % Sodium (137-145) mmol/L Carbon Dioxide (22-30) mmol/L BUN (9-20) mg/dL Glucose (75-100) mg/dL POC Glucose 162 H 187 H (70-105) mg/dL Triglycerides (2-149) mg/dL - Imaging and cardiology Chest x-ray: report reviewed, image reviewed (b/l pna)
[2021-03-16] MEDS ORDERED: VANCOMYCIN PHARMACY TO DOSE IV SCH (13:00)
[2021-03-16] MEDS: CEFEPIME/NS 2 GM/100 ML 2 GM/100 ML BAG IV SCH ×2 (17:31→22:39)
[2021-03-16] MEDS: VANCOMYCIN 1,750 MG in SODIUM CHLORIDE 0.9% 500 ML 500 ML IV SCH (21:10)
[2021-03-17] MEDS: fentaNYL DRIP Premix 2,000 MCG/100 ML BAG IV SCH ×5 (00:16→19:16)
[2021-03-17] MEDS: INSULIN REGULAR, HUMAN 100 UNITS/1 ML SUB-Q SCH ×4 (00:35→18:08)
[2021-03-17] MEDS: INSULIN LISPRO 100 UNIT/ML SUB-Q SCH ×3 (00:35→12:08)
[2021-03-17] MEDS: FREE WATER PO SCH ×6 (02:36→22:22)
[2021-03-17 05:26] LABS: Basophils # (Auto) 0.1 K/mm3 (0.0-0.1); Basophils % (Auto) 0.8 % (0.0-1.8); Eosinophils # (Auto) 0.1 K/mm3 (0.0-0.4); Eosinophils % (Auto) 0.4 % (0.0-4.3); Hematocrit 43.1 % (35.5-45.6); Hemoglobin 13.8 gm/dl (11.8-15.2); Lymphocytes # (Auto) 1.8 K/mm3 (1.2-5.4); Lymphocytes % (Auto) 12.6 % (13.4-35.0); Mean Corpuscular HGB Conc 32 % (32-34); Mean Corpuscular Volume 94 fl (84-94); Monocytes # (Auto) 1.6 K/mm3 (0.0-0.8); Monocytes % (Auto) 11.3 % (0.0-7.3); Platelet Count 362 K/mm3 (140-440); Red Blood Count 4.57 M/mm3 (3.65-5.03); Red Cell Distribution Width 15.3 % (13.2-15.2)
[2021-03-17 05:33] LABS: BUN/Creatinine Ratio 53; Blood Urea Nitrogen 42 mg/dL (9-20); Hemolysis Index 13
[2021-03-17] MEDS: CEFEPIME/NS 2 GM/100 ML 2 GM/100 ML BAG IV SCH ×3 (06:25→22:40)
[2021-03-17] MEDS: methylPREDNISolone Sod Succinate 125 MG/2 ML INJ IV SCH ×3 (06:25→21:00)
[2021-03-17] MEDS: hydrALAZINE 25 MG TAB PO SCH ×3 (06:27→21:00)
[2021-03-17] MEDS: MIDAZOLAM 2 MG/2 ML INJ IV PRN ×2 (08:31→10:45)
[2021-03-17] MEDS: VANCOMYCIN 1,750 MG in SODIUM CHLORIDE 0.9% 500 ML 500 ML IV SCH ×2 (10:10→21:03)
[2021-03-17] MEDS: INSULIN GLARGINE 100 UNITS/ML SUB-Q SCH ×2 (10:10→21:40)
[2021-03-17] MEDS: ENOXAPARIN 100 MG/1 ML INJ SUB-Q SCH ×2 (10:11→21:00)
[2021-03-17] MEDS: FAMOTIDINE 20 MG TAB FEEDTUBE SCH ×2 (10:11→21:00)
[2021-03-17] MEDS: ZINC SULFATE 220 MG CAP PO SCH ×2 (10:11→21:01)
[2021-03-17] MEDS: QUEtiapine 25 MG TAB PO SCH (10:11)
[2021-03-17] MEDS: SENNOSIDES/DOCUSATE SODIUM 8.6/50 MG TAB FEEDTUBE SCH ×2 (10:11→21:00)
[2021-03-17] MEDS: ASCORBIC ACID 500 MG TAB PO SCH ×2 (10:11→21:01)
[2021-03-17 11:38] LABS: ABG Base Excess 8.7 mmol/L (-2.0-3.0); ABG HCO3 35.7 mmol/L (20.0-26.0); ABG Methemoglobin 0.7 % (0.0-1.5); ABG PCO2 59.3 mm Hg; ABG PH 7.398 pH Units (7.350-7.450); ABG PO2 81.1 mm Hg (80.0-90.0)
--- NOTE | 2021-03-17 11:47 | Progress Note ---
Assessment and Plan Cultures: SARS CoV2 PCR: positive 03/08/2021 blood culture: no growth 03/10/2021 sputum culture: Usual respiratory marlyn 03/16/2021 blood culture: In process A/P: 61-year-old male with diabetes, hypertension admitted to the hospital with complaints of shortness of breath and feeling weak for the last 1 week: #Sepsis secondary to bilateral pneumonia: secondary to COVID-19. Elevated inflammatory markers. WBC 22.6, creatinine 1.3, ferritin 877, CRP 18.0, LDH 624, procalcitonin 0.18. D-dimer >10k. CTA negative for pulmonary embolism, severe patchy groundglass opacities. #New fever: probably COVID related. #Acute hypoxic respiratory failure: initially required BiPAP, now intubated, on the vent. #DM #HTN Recs: -persistent low grade temperatures, at risk of infections given steroids, Actemra use. However, CRP 0.4, procalcitonin 0.05. If blood and sputum cultures remain negative, stop empiric Cefepime + Vancomycin -Continue steroids per pulm, on solumedrol, would not extend beyond 10 days especially since patient also received Actemra. -completed IV remdesivir -s/p Actemra 03/10/2021 -prophylactic anticoagulation based on d-dimer per hospital protocol Sangita Nicole MD, FACP, [facility] O: [phone] F: [phone] Subjective Date of service: 03/17/21 Principal diagnosis: AHRF; COVID-19 infection; DM II; Bilateral pneumonia; Obes ity; HTN Interval history: Low-grade temperature. Remains on the vent. CRP 0.4, procalcitonin 0.05 Objective - Exam Narrative Exam: Physical Exam Constitutional: sedated, intubated, on the vent Head, Ears, Nose: Normocephalic, atraumatic. External ears, nose normal Eyes: Conjunctivae/corneas clear. No icterus. No ptosis. Neck: intubated Oral: intubated Cardiovascular: S1, S2 + Respiratory: AE fair GI: Soft, bowel sounds + Musculoskeletal: No pedal edema, no cyanosis. Skin: No rash or abscess Hem/Lymphatic: No palpable cervical or supraclavicular nodes. No lymphangitis Psych: no agitation Neurological: sedated, intubated, on the vent, exam limited - Constitutional Vitals: Vital Signs Temp Pulse Resp BP Pulse Ox 98.2 F 116 H 23 175/112 94 03/17/21 07:24 03/17/21 11:30 03/17/21 11:30 03/17/21 11:30 03/17/21 11:30 Temperature -Last 24 Hours Temperature 98.2 F Temperature 99.3 F Temperature 100 F Temperature 97.8 F Temperature 1008 F - Labs CBC & Chem 7: 03/17/21 04:40 03/17/21 04:40 Labs: Abnormal lab results 03/16/21 03/16/21 03/16/21 Range/Units 17:29 22:25 23:22 WBC (4.5-11.0) K/mm3 RDW (13.2-15.2) % Lymph % (Auto) (13.4-35.0) % [place] % (Auto) (0.0-7.3) % [place] # (Auto) (0.0-0.8) K/mm3 Seg Neutrophils % (40.0-70.0) % Seg Neutrophils # (1.8-7.7) K/mm3 D-Dimer (0-234) ng/mlDDU ABG HCO3 (20.0-26.0) mmol/L ABG Base Excess (-2.0-3.0) mmol/L Oxyhemoglobin (95.0-99.0) % Sodium (137-145) mmol/L Chloride (98-107) mmol/L Carbon Dioxide (22-30) mmol/L BUN (9-20) mg/dL Glucose (75-100) mg/dL POC Glucose 237 H 165 H 189 H (70-105) mg/dL Magnesium (1.7-2.3) mg/dL 03/17/21 03/17/21 03/17/21 Range/Units 04:40 04:40 04:40 WBC 14.1 H (4.5-11.0) K/mm3 RDW 15.3 H (13.2-15.2) % Lymph % (Auto) 12.6 L (13.4-35.0) % [place] % (Auto) 11.3 H (0.0-7.3) % [place] # (Auto) 1.6 H (0.0-0.8) K/mm3 Seg Neutrophils % 74.9 H (40.0-70.0) % Seg Neutrophils # 10.5 H (1.8-7.7) K/mm3 D-Dimer 1359.12 H (0-234) ng/mlDDU ABG HCO3 (20.0-26.0) mmol/L ABG Base Excess (-2.0-3.0) mmol/L Oxyhemoglobin (95.0-99.0) % Sodium 148 H (137-145) mmol/L Chloride 107.5 H (98-107) mmol/L Carbon Dioxide 33 H (22-30) mmol/L BUN 42 H (9-20) mg/dL Glucose 183 H (75-100) mg/dL POC Glucose (70-105) mg/dL Magnesium 2.70 H (1.7-2.3) mg/dL 03/17/21 03/17/21 Range/Units 05:53 11:05 WBC (4.5-11.0) K/mm3 RDW (13.2-15.2) % Lymph % (Auto) (13.4-35.0) % [place] % (Auto) (0.0-7.3) % [place] # (Auto) (0.0-0.8) K/mm3 Seg Neutrophils % (40.0-70.0) % Seg Neutrophils # (1.8-7.7) K/mm3 D-Dimer (0-234) ng/mlDDU ABG HCO3 35.7 H (20.0-26.0) mmol/L ABG Base Excess 8.7 H (-2.0-3.0) mmol/L Oxyhemoglobin 94.2 L (95.0-99.0) % Sodium (137-145) mmol/L Chloride (98-107) mmol/L Carbon Dioxide (22-30) mmol/L BUN (9-20) mg/dL Glucose (75-100) mg/dL POC Glucose 176 H (70-105) mg/dL Magnesium (1.7-2.3) mg/dL
--- NOTE | 2021-03-17 11:51 | Progress Note ---
Assessment and Plan Assessment and plan: This is a 61-year-old male with past medical history of HTN and DM admitted for sepsis and acute hypoxic respiratory failure 2/2 COVID pneumonia requiring ventilatory support. Hospital Course to Date: 03/09: The patient was seen and evaluated today, and he was found to be hemo dynamically stable. The patient is currently on BiPAP for possible COVID-19 pneumonia. He was started on Lovenox 1mg/kg for DVT ppx in the setting of d- dimer > 10,000. Infectious Disease was consulted. The patient is pending a TTE. 03/10: No acute events overnight, patient was intubated in the afternoon transferred to ICU 03/11: Patient started on Lantus, free water flushes increased, propofol drip resumed and oral antihypertensive added. 03/12: lantus increased, k at 5, will monitor. I updated his family and his stated that he is not vaccinated. He does have HTN and she will call the RN to update home medications. She did say he takes bystolic and amlopine. She inquired about ventilator and lab work. She had no further questions. 03/13: KVNG overnight. Patient remains hyperglycemic, basal insulin adjusted and increased to Q12hrs. Patient is overall net positive since admit X1 dose of IV lasix, repeat BMP this afternoon. 03/14: Failed SAT this am due to increase agitation, tachycardia and hypertension. Remains on propofol and fentanyl gtt. Hyperkalemia treated with PO kayaxalate. Patient responded to IV lasix yesterday additional dose again today for a net negative balance. Repeat BMP this afternoon. Insulin adjusted for hyperglycemia. 03/15: Remains encephalopathic, not following commansd. Orders placed for CT head/Brain and Neuro consulted. Rectal bleeding subsided, most likely due to hemorrhoids. H&H is stable will continue to monitor. Kayaxexalate for high K, repeat labs 4 to 6hrs post treatment. 03/16: Still agiated this am, CT head with no acute Abn. CXR and ABG noted- evolving pna and worsening hypoxia, now with low grade fevers. Sputum culture ordered, IV Abx added, ID on cosult. 03/17: This am ABG noted, hypoxia improved. Continue to wean FiO2 as tolerated. Still with low grade fevers, on IV Abx per ID. Still with periods of confusion despite sedation, seroquel increased. F/u CXR in the am Assessment and Plan #Neuro:Acute Encephalopathy - Intubated and sedated on propofol and fentanyl, RASS -2 - Titrate sedation for RASS goal of 0 to -1 - Failed SAT, not tolerating sedation wean - CT head/brain no acute Abn. - Seroquel increased, monitor Qtc - Avoid benzodiazepine to reduce the possibility of delirium - Prn analgesia for CPOT greater than 3 - Maintenance of sleep-wake cycle - Neurology on consult #CV: Hypertension - BP stable this am - 03/09 Echocardiogram shows a mildly dilated ascending aorta, normal LV systolic function, mild concentric LVH, LVEF 60 to 65% - Continue PO Hydralazine - PRN Antihypertensive for SBP above 160 - Continue Blood pressure monitoring per protocol #Acute Hypoxic Respiratory Failure #COVID Pneumonia - Intubated on 03/10 due to worsen hypoxia on BIPAP - COVID swab positive - CXR showed bilateral patchy infiltrates - CT chest shows severe patchy multifocal groundglass airspace disease - Vent setting:PRVC-50%,8,25,450 - Wean Fio2 as tolerated - AM ABG noted - CCM consulted, appreciate recommendations - Continue IV Steroids and Nebs per CCM - keep patient net negative for better lung compliance - VAP bundle addressed - Aspiration precaution HOB above 30 - Daily SBT and SAT trials as tolerated - Daily ABG and CXR - Continue SPO2 monitoring for SPO2 goal above 92% #GI:TF - Continue enteral nutrition - Nutrition consulted - Continue PPI and BR #Hypernatremia #Hyperkalemia-improved - Continue FWF - Repeat BMp ordered - Strict intake and output - Avoid nephrotoxic medications; Renally dose medications - Good in place - Monitor and replace electrolytes as needed -Trend BMP #Elevated D-dimer - Most likely due to COVID - Bilateral lower extremity ultrasounds negative for DVT, superficial thrombus in left gastrocnemius vein - CTA chest shows no gross pulm embolism - H&H stable - Continue AC- Lovenox SubQ - SCDs to BLE while in bed - Transfuse hemoglobin less than 7 - Monitor for signs of bleeding #Sepsis #COVID Pneumonia #Leukocytosis #Lactic Acidosis- Resolved - COVID PCR positive - UA neg, Blood cultures and Sputum culture NGTD - Infectious disease consulted, appreciate recommendation - S/p Actemra 03/10/2021 - Continue IV remdesivir for 5 days - Dexamethasone x10 days - Low grade temp this am - repeat Sputum culture and Bculture pending - Continue IV ABx per ID - Monitor WBC and temperature curve - Trend CBC #Endo:Hyperglycemia #h/o DM - Patient on IV steroids - Continue high dose SSI Q6hrs - Additional Short acting insulin Q6hrs - Basal insulin increased to BID The high probability of a clinically significant, sudden or life threatening deterioration of the [multi] system(s) required my full and direct attention, intervention and personal management. The aggregate critical care time was [60] minutes. This time is in addition to time spent performing reported procedures but includes the following: [x] Data Review and interpretation [x] Patient assessment and monitoring of vital signs [x] Documentation [x] Medication orders and management Disposition Plan: ICU Total Time Spent with Patient (Minutes): 60 History Interval history: Patient seen and examined at the bedside. Remains intubated and on seadtion. Still with periods of agitation, not following commands Hospitalist Physical - Constitutional Vitals: Temp Pulse Resp BP Pulse Ox 98.2 F 116 H 23 175/112 94 03/17/21 07:24 03/17/21 11:30 03/17/21 11:30 03/17/21 11:30 03/17/21 11:30 General appearance: Present: mild distress, well-nourished, obese, other (Intubated and sedated) - EENT Eyes: Present: PERRL - Respiratory Respiratory effort: labored Respiratory: bilateral: rhonchi - Cardiovascular Rhythm: regular Heart Sounds: Present: S1 & S2 - Extremities Extremities: no ischemia, pulses intact, pulses symmetrical Extremity abnormal: edema - Peripheral Assessment Generalized Edema Type: Non-pitting Edema Degree: 1+ Capillary Refill: < 3 seconds Skin Temperature: Warm Peripheral Pulses: within normal limits - Abdominal General gastrointestinal: soft, non-distended, normal bowel sounds - Integumentary Integumentary: Present: warm, dry - Psychiatric Psychiatric: other (Intubated and sedated) - Neurologic Neurologic: other (Intubated and sedated) - Allied Health Allied health notes reviewed: nursing Results - Labs CBC & Chem 7: 03/17/21 04:40 03/17/21 04:40 Labs: Laboratory Last Values WBC 14.1 K/mm3 (4.5-11.0) H 03/17/21 04:40 RBC 4.57 M/mm3 (3.65-5.03) 03/17/21 04:40 Hgb 13.8 gm/dl (11.8-15.2) 03/17/21 04:40 Hct 43.1 % (35.5-45.6) 03/17/21 04:40 MCV 94 fl (84-94) 03/17/21 04:40 MCH 30 pg (28-32) 03/17/21 04:40 MCHC 32 % (32-34) 03/17/21 04:40 RDW 15.3 % (13.2-15.2) H 03/17/21 04:40 Plt Count 362 K/mm3 (140-440) 03/17/21 04:40 Lymph % (Auto) 12.6 % (13.4-35.0) L 03/17/21 04:40 [place] % (Auto) 11.3 % (0.0-7.3) H 03/17/21 04:40 Eos % (Auto) 0.4 % (0.0-4.3) 03/17/21 04:40 Baso % (Auto) 0.8 % (0.0-1.8) 03/17/21 04:40 Lymph # (Auto) 1.8 K/mm3 (1.2-5.4) 03/17/21 04:40 [place] # (Auto) 1.6 K/mm3 (0.0-0.8) H 03/17/21 04:40 Eos # (Auto) 0.1 K/mm3 (0.0-0.4) 03/17/21 04:40 Baso # (Auto) 0.1 K/mm3 (0.0-0.1) 03/17/21 04:40 Add Manual Diff Complete 03/10/21 04:29 Total Counted 100 03/10/21 04:29 Seg Neutrophils % 74.9 % (40.0-70.0) H 03/17/21 04:40 Seg Neuts % (Manual) 94.0 % (40.0-70.0) H 03/10/21 04:29 Band Neutrophils % 0 % 03/10/21 04:29 Lymphocytes % (Manual) 1.0 % (13.4-35.0) L 03/10/21 04:29 Reactive Lymphs % (Man) 0 % 03/10/21 04:29 Monocytes % (Manual) 5.0 % (0.0-7.3) 03/10/21 04:29 Eosinophils % (Manual) 0 % (0.0-4.3) 03/10/21 04:29 Basophils % (Manual) 0 % (0.0-1.8) 03/10/21 04:29 Metamyelocytes % 0 % 03/10/21 04:29 Myelocytes % 0 % 03/10/21 04:29 Promyelocytes % 0 % 03/10/21 04:29 Blast Cells % 0 % 03/10/21 04:29 Nucleated RBC % 3.0 % (0.0-0.9) H 03/10/21 04:29 Seg Neutrophils # 10.5 K/mm3 (1.8-7.7) H 03/17/21 04:40 Seg Neutrophils # Man 19.4 K/mm3 (1.8-7.7) H 03/10/21 04:29 Band Neutrophils # 0.0 K/mm3 03/10/21 04:29 Lymphocytes # (Manual) 0.2 K/mm3 (1.2-5.4) L 03/10/21 04:29 Abs React Lymphs (Man) 0.0 K/mm3 03/10/21 04:29 Monocytes # (Manual) 1.0 K/mm3 (0.0-0.8) H 03/10/21 04:29 Eosinophils # (Manual) 0.0 K/mm3 (0.0-0.4) 03/10/21 04:29 Basophils # (Manual) 0.0 K/mm3 (0.0-0.1) 03/10/21 04:29 Metamyelocytes # 0.0 K/mm3 03/10/21 04:29 Myelocytes # 0.0 K/mm3 03/10/21 04:29 Promyelocytes # 0.0 K/mm3 03/10/21 04:29 Blast Cells # 0.0 K/mm3 03/10/21 04:29 WBC Morphology Not Reportable 03/10/21 04:29 Hypersegmented Neuts Not Reportable 03/10/21 04:29 Hyposegmented Neuts Not Reportable 03/10/21 04:29 Hypogranular Neuts Not Reportable 03/10/21 04:29 Smudge Cells Not Reportable 03/10/21 04:29 Toxic Granulation Not Reportable 03/10/21 04:29 Toxic Vacuolation Not Reportable 03/10/21 04:29 Dohle Bodies Not Reportable 03/10/21 04:29 Pelger-Huet Anomaly Not Reportable 03/10/21 04:29 Mely Rods Not Reportable 03/10/21 04:29 Platelet Estimate Consistent w auto 03/10/21 04:29 Clumped Platelets Not Reportable 03/10/21 04:29 Plt Clumps, EDTA Not Reportable 03/10/21 04:29 Large Platelets Not Reportable 03/10/21 04:29 Giant Platelets Not Reportable 03/10/21 04:29 Platelet Satelliting Not Reportable 03/10/21 04:29 Plt Morphology Comment Not Reportable 03/10/21 04:29 RBC Morphology Normal 03/10/21 04:29 Dimorphic RBCs Not Reportable 03/10/21 04:29 Polychromasia Not Reportable 03/10/21 04:29 Hypochromasia Not Reportable 03/10/21 04:29 Poikilocytosis Not Reportable 03/10/21 04:29 Anisocytosis Not Reportable 03/10/21 04:29 Microcytosis Not Reportable 03/10/21 04:29 Macrocytosis Not Reportable 03/10/21 04:29 Spherocytes Not Reportable 03/10/21 04:29 Pappenheimer Bodies Not Reportable 03/10/21 04:29 Sickle Cells Not Reportable 03/10/21 04:29 Target Cells Not Reportable 03/10/21 04:29 Tear Drop Cells Not Reportable 03/10/21 04:29 Ovalocytes Not Reportable 03/10/21 04:29 Helmet Cells Not Reportable 03/10/21 04:29 [place] Bodies Not Reportable 03/10/21 04:29 [place] Rings Not Reportable 03/10/21 04:29 [place] Cells Not Reportable 03/10/21 04:29 Bite Cells Not Reportable 03/10/21 04:29 Crenated Cell Not Reportable 03/10/21 04:29 Elliptocytes Not Reportable 03/10/21 04:29 Acanthocytes (Spur) Not Reportable 03/10/21 04:29 Rouleaux Not Reportable 03/10/21 04:29 Hemoglobin C Crystals Not Reportable 03/10/21 04:29 Schistocytes Not Reportable 03/10/21 04:29 Malaria parasites Not Reportable 03/10/21 04:29 [place] Bodies Not Reportable 03/10/21 04:29 Hem Pathologist Commnt No 03/10/21 04:29 PT 16.1 Sec. (12.2-14.9) H 03/08/21 20:24 INR 1.17 (0.87-1.13) H 03/08/21 20:24 APTT 28.0 Sec. (24.2-36.6) 03/08/21 20:24 D-Dimer 1359.12 ng/mlDDU (0-234) H 03/17/21 04:40 ABG pH 7.398 pH Units (7.350-7.450) 03/17/21 11:05 POC ABG pCO2 71.9 mmHg (32.0-48.0) H 03/12/21 21:54 ABG pCO2 59.3 mm Hg 03/17/21 11:05 POC ABG pO2 53.6 mmHg (83-108) L 03/12/21 21:54 ABG pO2 81.1 mm Hg (80.0-90.0) 03/17/21 11:05 POC ABG HCO3 30.0 03/12/21 21:54 ABG HCO3 35.7 mmol/L (20.0-26.0) H 03/17/21 11:05 ABG O2 Saturation 96.0 % (95.0-99.0) 03/17/21 11:05 ABG O2 Content 18.7 (0.0-44) 03/17/21 11:05 POC ABG Base Excess 0.5 03/12/21 21:54 ABG Base Excess 8.7 mmol/L (-2.0-3.0) H 03/17/21 11:05 ABG Hemoglobin 14.1 gm/dl (14.0-18.0) 03/17/21 11:05 ABG Oxyhemoglobin 84.8 (94-98) L 03/12/21 21:54 ABG Carboxyhemoglobin 1.2 % (0.0-5.0) 03/17/21 11:05 ABG Methemoglobin 0.7 % (0.0-1.5) 03/17/21 11:05 ABG Sodium 134.2 mmol/L (136.0-145.0) L 03/12/21 21:54 ABG Potassium 4.9 mmol/L (3.40-4.50) H 03/12/21 21:54 ABG Chloride 99.0 mmol/L (98-107) 03/12/21 21:54 ABG Glucose 306 mg/dL (65-95) H 03/12/21 21:54 Oxyhemoglobin 94.2 % (95.0-99.0) L 03/17/21 11:05 Carboxyhemoglobin 0.6 (0.5-1.5) 03/12/21 21:54 FiO2 50 % 03/17/21 11:05 FiO2 % 50.0 03/12/21 21:54 Sodium 148 mmol/L (137-145) H 03/17/21 04:40 Potassium 5.0 mmol/L (3.6-5.0) 03/17/21 04:40 Chloride 107.5 mmol/L (98-107) H 03/17/21 04:40 Carbon Dioxide 33 mmol/L (22-30) H 03/17/21 04:40 Anion Gap 13 mmol/L 03/17/21 04:40 BUN 42 mg/dL (9-20) H 03/17/21 04:40 Creatinine 0.8 mg/dL (0.8-1.3) 03/17/21 04:40 Estimated GFR > 60 ml/min 03/17/21 04:40 BUN/Creatinine Ratio 53 % 03/17/21 04:40 Glucose 183 mg/dL (75-100) H 03/17/21 04:40 POC Glucose 176 mg/dL (70-105) H 03/17/21 05:53 Lactic Acid 1.90 mmol/L (0.7-2.0) 03/08/21 23:51 Calcium 9.0 mg/dL (8.4-10.2) 03/17/21 04:40 Phosphorus 4.80 mg/dL (2.5-4.5) H D 03/15/21 06:06 Magnesium 2.70 mg/dL (1.7-2.3) H 03/17/21 04:40 Ferritin 976.4 ng/mL (30.0-300.0) H 03/15/21 04:00 Total Bilirubin 0.20 mg/dL (0.1-1.2) 03/12/21 08:03 AST 10 units/L (5-40) 03/12/21 08:03 ALT 16 units/L (7-56) 03/12/21 08:03 Alkaline Phosphatase 77 units/L (35-129) 03/12/21 08:03 Lactate Dehydrogenase 630 units/L (91-180) H 03/15/21 06:06 C-Reactive Protein 0.40 mg/dL (0.00-1.30) 03/17/21 04:40 NT-Pro-B Natriuret Pep 1053 pg/mL (0-900) H 03/08/21 20:24 Total Protein 6.0 g/dL (6.3-8.2) L 03/12/21 08:03 Albumin 2.9 g/dL (3.9-5) L 03/12/21 08:03 Albumin/Globulin Ratio 0.9 % 03/12/21 08:03 Triglycerides 267 mg/dL (2-149) H 03/16/21 04:11 Procalcitonin 0.05 ng/mL (<0.15) 03/17/21 04:40 Arterial Blood Glucose 306 mg/dL (65-95) H 03/12/21 21:54 Arterial Blood Ionized Calcium 5.0 mg/dL (4.6-5.3) 03/12/21 21:54 Urine Color Yellow (Yellow) 03/09/21 04:10 Urine Turbidity Slightly-cloudy (Clear) 03/09/21 04:10 Urine pH 5.0 (5.0-7.0) 03/09/21 04:10 Ur Specific [place] 1.041 (1.003-1.030) H 03/09/21 04:10 Urine Protein 100 mg/dl mg/dL (Negative) 03/09/21 04:10 Urine Glucose (UA) Neg mg/dL (Negative) 03/09/21 04:10 Urine Ketones Neg mg/dL (Negative) 03/09/21 04:10 Urine Blood Mod (Negative) 03/09/21 04:10 Urine Nitrite Neg (Negative) 03/09/21 04:10 Urine Bilirubin Neg (Negative) 03/09/21 04:10 Urine Urobilinogen 2.0 mg/dL (<2.0) 03/09/21 04:10 Ur Leukocyte Esterase Neg (Negative) 03/09/21 04:10 Urine WBC (Auto) 4.0 /HPF (0.0-6.0) 03/09/21 04:10 Urine RBC (Auto) 1.0 /HPF (0.0-6.0) 03/09/21 04:10 Urine Bacteria (Auto) 1+ /HPF (Negative) 03/09/21 04:10 Urine Mucus Few /HPF 03/09/21 04:10 Coronavirus (PCR) Positive (Negative) A 03/09/21 08:00 Microbiology: Microbiology 03/16/21 13:51 Peripheral/Venous Blood Culture - Preliminary Culture in Progress 03/16/21 13:51 Peripheral/Venous Blood Culture - Preliminary Culture in Progress Good/IV: Voiding Method Indwelling Catheter Active Medications - Current Medications Current Medications: Generic Name Dose Route Start Last Admin Trade Name Freq PRN Reason Stop Dose Admin Acetaminophen 650 mg 03/09/21 01:26 03/16/21 08:07 Acetaminophen 325 Mg Tab PO 650 mg Q4H PRN Administration Pain MILD(1-3)/Fever >100.5/RAYO Albuterol 2.5 mg 03/09/21 01:26 Albuterol 2.5 Mg/3 Ml Nebu IH Q4HRT PRN Shortness Of Breath Albuterol/Ipratropium 1 ampul 03/11/21 08:00 03/16/21 23:40 Ipratropium/Albuterol Sulfate 3 Ml Ampul.Neb IH Not Given TIDRT BLANCA Arformoterol Tartrate 15 mcg 03/11/21 20:00 03/16/21 23:41 Arformoterol 15 Mcg/2 Ml Nebu IH Not Given Q12HRT BLANCA Ascorbic Acid 500 mg 03/10/21 14:00 03/17/21 10:11 Ascorbic Acid 500 Mg Tab PO 500 mg BID BLANCA Administration Budesonide 0.25 mg 03/11/21 20:00 03/16/21 23:41 Budesonide 0.25 Mg/2 Ml Nebu IH Not Given Q12HRT BLANCA Dextrose 0 ml 03/09/21 01:26 Dextrose 50% In Water (25gm) 50 Ml Syringe IV Q30MIN PRN Hypoglycemia Protocol Enoxaparin Sodium 100 mg 03/09/21 10:00 03/17/21 10:11 Enoxaparin 100 Mg/1 Ml Inj SUB-Q 100 mg Q12HR BLANCA Administration Protocol Famotidine 20 mg 03/12/21 22:00 03/17/21 10:11 Famotidine 20 Mg Tab FEEDTUBE 20 mg BID BLANCA Administration Fentanyl 50 mcg 03/10/21 16:47 Fentanyl 100 Mcg/2 Ml Inj IV Q10MIN PRN ANALGESIA Hydralazine HCl 10 mg 03/09/21 01:36 03/10/21 03:56 Hydralazine 20 Mg/1 Ml Inj IV 10 mg Q6H PRN Administration Blood Pressure Hydralazine HCl 50 mg 03/11/21 17:00 03/17/21 06:27 Hydralazine 25 Mg Tab PO 50 mg Q8HR BLANCA Administration Hydrophilic Ointment 1 applic 03/10/21 15:39 Lip Therapy Vaseline TP Q2HR PRN Dry Lips Fentanyl Citrate 2,000 mcg in 100 mls @ 5.897 mls/hr 03/10/21 17:00 03/17/21 10:45 Fentanyl Drip Premix IV 4 mcg/kg/hr TITR BLANCA 23.587 mls/hr Administration Protocol 1 MCG/KG/HR Propofol 1,000 mg in 100 mls @ 3.507 mls/hr 03/11/21 17:00 03/17/21 08:05 Diprivan 10 Mg/Ml IV 45 mcg/kg/min TITR BLANCA 31.563 mls/hr Administration Protocol 5 MCG/KG/MIN Vancomycin HCl 1,750 mg/ 535 mls @ 333 mls/hr 03/16/21 22:00 03/17/21 10:10 Sodium Chloride IV 333 mls/hr Q12HR BLANCA Administration Protocol Cefepime HCl 2 gm in 100 mls @ 200 mls/hr 03/16/21 17:00 03/17/21 06:25 Cefepime/Ns 2 Gm/100 Ml IV 200 mls/hr Q8HR BLANCA Administration Protocol Insulin Glargine 25 units 03/14/21 10:00 03/17/21 10:10 Insulin Glargine 100 Units/Ml SUB-Q 25 units BID BLANCA Administration Insulin Human Lispro 0 unit 03/11/21 18:00 03/17/21 06:26 Insulin Lispro 100 Unit/Ml SUB-Q 3 unit Q6HR BLANCA Administration Protocol Insulin Human Regular 5 units 03/14/21 12:00 03/17/21 06:26 Insulin Regular, Human 100 Units/1 Ml SUB-Q 5 units Q6HR BLANCA Administration Labetalol HCl 10 mg 03/12/21 21:13 Labetalol 20 Mg/4 Ml Inj IV Q6H PRN Blood Pressure Methylprednisolone Sodium Succinate 60 mg 03/10/21 22:00 03/17/21 06:25 Methylprednisolone Sod Succinate 125 Mg/2 Ml Inj IV 03/20/21 14:01 60 mg Q8HR BLANCA Administration Midazolam HCl 2 mg 03/15/21 08:49 03/17/21 10:45 Midazolam 2 Mg/2 Ml Inj IV 2 mg Q2H PRN Administration VENT SYNCHRONY Multi-Ingred Cream/Lotion/Oil/Oint 1 applic 03/10/21 15:39 Mineral Oil/Petrolatum, White Ophth Oint 3.5 Gm OU Q4HR PRN Dry Eye(s) Ondansetron HCl 4 mg 03/09/21 01:26 Ondansetron 4 Mg/2 Ml Inj IV Q8H PRN Nausea And Vomiting Quetiapine Fumarate 50 mg 03/16/21 11:00 03/17/21 10:11 Quetiapine 25 Mg Tab PO 50 mg BID BLANCA Administration Senna/Docusate Sodium 1 tab 03/10/21 22:00 03/17/21 10:11 Sennosides/Docusate Sodium 8.6/50 Mg Tab FEEDTUBE 1 tab BID BLANCA Administration Sodium Chloride 10 ml 03/09/21 10:00 03/17/21 10:10 Sodium Chloride 0.9% 10 Ml Flush Syringe IV 10 ml BID BLANCA Administration Sodium Chloride 10 ml 03/09/21 01:26 Sodium Chloride 0.9% 10 Ml Flush Syringe IV PRN PRN LINE FLUSH Zinc Sulfate 220 mg 03/10/21 14:00 03/17/21 10:11 Zinc Sulfate 220 Mg Cap PO 220 mg BID BLANCA Administration Nutrition/Malnutrition Assess - Dietary Evaluation Nutrition/Malnutrition Findings: Nutrition Notes Start: 03/09/21 08:49 Freq: Status: Active Protocol: Document 03/14/21 10:48 BRYANNA (Rec: 03/14/21 11:07 BRYANNA [id number]) Nutrition Notes Initial or Follow up Brief Note Current Diet TF-Glucerna 1.2 Tyson @ 66 ml/hr (since L 03/14). Height 5 ft 11 in Weight 117 kg [place] Body Weight (kg) 78.18 BMI 35.9 Weight change and time frame No body weight change reported . Weight Status Obese Subjective/Other Information RD consult for TF change requested by RN. RN states that Pt's bG has been high and request a change to Glucerna, since no kidney complications are present. Percent of energy/protein needs met: Prescribed Glucerna 1.2 Tyson @ 66 ml/hr provides for energy/ protein needs (1911 Kcal/96 g) during LOS, 100% Kcal; 75% AA . #1 Nutrition Diagnosis Inadequate oral intake Comments: RN states that Pt's bG has been high and request a change to Glucerna, since no kidney complications are present. Diagnosis Progress(for reassessment Continues documentation) Is patient on ventilator? Yes Is Patient Ambulatory and/or Out of Bed No REE-([place] Je[facility]-confined to bed) [phone] Calculation Used for Recommendations 70-80% energy needs Additional Notes Energy needs: 6580-1395 kcal/ day Pro needs 1.3g/kg adjBW: 127g/ day Fluid needs 1ml/kcal Nutrition Intervention Nutrition Support: Change to Glucerna 1.2 Tyson @66 ml/hr. Flush: 100 ml water Q 4 hr, or as per MD. Kcal 1,911 Protein (gm) 96 Carbohydrates (gm) 182 Fat (gm) 96 Fluid (mL) 1,282 Fiber (gm) 26 % RDI: 100% Kcal; 75% AA. Goal #1 Provide at least 75% of energy /protein needs through Enteral Feeding during LOS. Follow-Up By: 03/17/21 Additional Comments Continue monitoring TF tolerance and BM.
--- NOTE | 2021-03-17 11:58 | Progress Note ---
Assessment and Plan Assessment and Plan This is a 61-year-old male with past medical history of HTN and DM admitted for sepsis and acute hypoxic respiratory failure 2/2 COVID pneumonia requiring ventilatory support. #Encephalopathy . Multifactorial - Intubated and sedated on propofol and fentanyl, - Failed SAT this am - Avoid benzodiazepine to reduce the possibility of delirium - Ct brain is unremarkable -suggest MRI and EEG -cut down sedation as possible -seizure precaution -treat underlying infection # Hypertension - BP stable this am - 03/09 Echocardiogram shows a mildly dilated ascending aorta, normal LV systolic function, mild concentric LVH, LVEF 60 to 65% - Continue PO Hydralazine - PRN Antihypertensive for SBP above 160 - Continue Blood pressure monitoring per protocol #Acute Hypoxic Respiratory Failure #COVID Pneumonia - Intubated on 03/10 due to worsen hypoxia on BIPAP - COVID swab positive - CXR showed bilateral patchy infiltrates - CT chest shows severe patchy multifocal groundglass airspace disease - Vent setting:PRVC-50%,8,25,450 - AM ABG pending - CCM consulted, appreciate recommendations - Continue IV Steroids and Nebs per [facility] - Additional IV lasix today, plan to keep patient net negative for better lung compliance - VAP bundle addressed - Aspiration precaution HOB above 30 - Daily SBT and SAT trials as tolerated - Daily ABG and CXR - Continue SPO2 monitoring for SPO2 goal above 92% #Hyperkalemia - X1 dose of Kayaxalated today - Repeat BMp ordered - Strict intake and output - Avoid nephrotoxic medications; Renally dose medications - Good in place - Monitor and replace electrolytes as needed -Trend BMP #Elevated D-dimer improved --1359 -CRP#0.4 -Calcitonin#0,05 #Sepsis #COVID Pneumonia #Leukocytosis #Lactic Acidosis- Resolved - COVID PCR positive - UA neg, Blood cultures and Sputum culture NGTD - Infectious disease consulted, appreciate recommendation - S/p Actemra 03/10/2021 - Continue IV remdesivir for 5 days - Dexamethasone x10 days - Prophylactic anticoagulation per hospital protocol - Patient remains afebrile, WBCs downstrending - Monitor WBC and temperature curve - Trend CBC #Endo:Hyperglycemia #h/o DM - Patient on IV steroids - Continue high dose SSI Q6hrs - Additional Short acting insulin Q6hrs - Basal insulin increased to BID PLAN 1- EEG today 2- MRI brain when stable 3-Seizure precaution 4- treat underlying infection 5- Cut down sedation as possible will follow as needed Subjective Date of service: 03/17/21 Principal diagnosis: COVID-19 infection; DM II; Bilateral pneumonia; Obesity; HTN Interval history: get agiiated with cut down on sedation move all limbs as per nursing staff currently sedated and is unresponsive on Propofol 45 Mc today CRP#0.4 Procalcit.#0.05 BUN/Cr#42/0.8 BP is elevated 197/108 Objective - Vital Sign Vital Signs - 12hr 03/16/21 03/17/21 03/17/21 23:57 00:00 00:30 Temperature Pulse Rate 103 H 102 H 100 H Pulse Rate [ 106 H From Monitor] Pulse Rate [ Left Dorsalis Pedis] Pulse Rate [ Left Radial] Pulse Rate [ Right Dorsalis Pedis] Pulse Rate [ Right Radial] Respiratory 19 18 25 H Rate Blood Pressure 110/61 105/61 101/59 O2 Sat by Pulse 93 92 92 Oximetry 03/17/21 03/17/21 03/17/21 01:00 01:31 02:00 Temperature Pulse Rate 99 H 107 H 104 H Pulse Rate [ From Monitor] Pulse Rate [ Left Dorsalis Pedis] Pulse Rate [ Left Radial] Pulse Rate [ Right Dorsalis Pedis] Pulse Rate [ Right Radial] Respiratory 20 16 20 Rate Blood Pressure 95/62 171/107 120/69 O2 Sat by Pulse 94 95 90 Oximetry 03/17/21 03/17/21 03/17/21 02:30 03:00 03:10 Temperature 99.3 F Pulse Rate 104 H 103 H Pulse Rate [ From Monitor] Pulse Rate [ Left Dorsalis Pedis] Pulse Rate [ Left Radial] Pulse Rate [ Right Dorsalis Pedis] Pulse Rate [ Right Radial] Respiratory 23 25 H Rate Blood Pressure 117/62 109/63 O2 Sat by Pulse 94 95 Oximetry 03/17/21 03/17/21 03/17/21 03:30 04:00 04:31 Temperature Pulse Rate 102 H 101 H 132 H Pulse Rate [ 99 H From Monitor] Pulse Rate [ Left Dorsalis Pedis] Pulse Rate [ Left Radial] Pulse Rate [ Right Dorsalis Pedis] Pulse Rate [ Right Radial] Respiratory 25 H 25 H 30 H Rate Blood Pressure 109/62 113/56 112/82 O2 Sat by Pulse 96 95 96 Oximetry 03/17/21 03/17/2103/17/22 05:01 05:15 05:31 Temperature Pulse Rate 127 H 117 H 114 H Pulse Rate [ From Monitor] Pulse Rate [ Left Dorsalis Pedis] Pulse Rate [ Left Radial] Pulse Rate [ Right Dorsalis Pedis] Pulse Rate [ Right Radial] Respiratory 18 14 Rate Blood Pressure 197/108 197/108 121/69 O2 Sat by Pulse 92 89 89 Oximetry 03/17/21 03/17/21 03/17/21 06:00 06:27 06:30 Temperature Pulse Rate 106 H 106 H 106 H Pulse Rate [ From Monitor] Pulse Rate [ Left Dorsalis Pedis] Pulse Rate [ Left Radial] Pulse Rate [ Right Dorsalis Pedis] Pulse Rate [ Right Radial] Respiratory 17 25 H Rate Blood Pressure 116/62 116/62 101/66 O2 Sat by Pulse 92 95 Oximetry 03/17/21 03/17/21 03/17/21 07:00 07:24 07:30 Temperature 98.2 F Pulse Rate 105 H 105 H Pulse Rate [ From Monitor] Pulse Rate [ Left Dorsalis Pedis] Pulse Rate [ Left Radial] Pulse Rate [ Right Dorsalis Pedis] Pulse Rate [ Right Radial] Respiratory 22 24 Rate Blood Pressure 111/60 106/63 O2 Sat by Pulse 95 95 Oximetry 03/17/21 03/17/21 03/17/21 08:00 08:30 09:01 Temperature Pulse Rate 121 H 142 H 112 H Pulse Rate [ 121 H From Monitor] Pulse Rate [ 120 H Left Dorsalis Pedis] Pulse Rate [ 118 H Left Radial] Pulse Rate [ 120 H Right Dorsalis Pedis] Pulse Rate [ 118 H Right Radial] Respiratory 18 25 H 14 Rate Blood Pressure 106/63 203/120 121/76 O2 Sat by Pulse 97 96 87 Oximetry 03/17/21 03/17/21 03/17/21 09:30 10:00 10:31 Temperature Pulse Rate 106 H 103 H 126 H Pulse Rate [ From Monitor] Pulse Rate [ Left Dorsalis Pedis] Pulse Rate [ Left Radial] Pulse Rate [ Right Dorsalis Pedis] Pulse Rate [ Right Radial] Respiratory 17 24 28 H Rate Blood Pressure 115/67 114/67 208/118 O2 Sat by Pulse 88 91 98 Oximetry 03/17/21 03/17/21 11:01 11:30 Temperature Pulse Rate 121 H 116 H Pulse Rate [ From Monitor] Pulse Rate [ Left Dorsalis Pedis] Pulse Rate [ Left Radial] Pulse Rate [ Right Dorsalis Pedis] Pulse Rate [ Right Radial] Respiratory 28 H 23 Rate Blood Pressure 160/82 175/112 O2 Sat by Pulse 92 94 Oximetry - General Apperance Constitutional: comfortable - EENT EENT: PERRL, mucous membranes moist - Respiratory Respiratory: lungs clear, rales, rhonchi - Cardiovascular Cardiovascular: regular rate, normal S1, normal S2 Extremities: no peripheral edema bilat, no clubbing, cyanosis - Gastrointestinal Gastrointestinal: normoactive bowel sounds - Integumentary Integumentary: normal - Neurologic Cranial nerve examination: PERRL, EOMI, intact Detailed motor examination: other (intubated and sedated no movment is noted) - Laboratory Findings CBC and BMP: 03/17/21 04:40 03/17/21 04:40 Abnormal Lab Findings: Abnormal Labs 03/08/21 03/08/21 03/08/21 20:24 20:24 20:24 WBC 22.6 H RBC 5.44 H Hgb 15.7 H Hct 49.2 H MCHC RDW Lymph % (Auto) [place] % (Auto) [place] # (Auto) Seg Neutrophils % Seg Neuts % (Manual) 83.0 H Lymphocytes % (Manual) 9.0 L Monocytes % (Manual) 8.0 H Nucleated RBC % Seg Neutrophils # Seg Neutrophils # Man 18.8 H Lymphocytes # (Manual) Monocytes # (Manual) 1.8 H PT 16.1 H INR 1.17 H D-Dimer > 98419 H ABG pH POC ABG pCO2 POC ABG pO2 ABG pO2 ABG HCO3 ABG O2 Saturation ABG Base Excess ABG Hemoglobin ABG Oxyhemoglobin ABG Sodium ABG Potassium ABG Glucose Oxyhemoglobin Sodium 136 L Potassium Chloride 93.9 L Carbon Dioxide BUN 29 H Glucose 208 H POC Glucose Lactic Acid Phosphorus Magnesium Ferritin Lactate Dehydrogenase 624 H C-Reactive Protein 18.00 H NT-Pro-B Natriuret Pep 1053 H Total Protein Albumin Triglycerides Arterial Blood Glucose Ur Specific [place] Coronavirus (PCR) 03/08/21 03/08/21 03/09/21 20:24 20:24 04:10 WBC RBC Hgb Hct MCHC RDW Lymph % (Auto) [place] % (Auto) [place] # (Auto) Seg Neutrophils % Seg Neuts % (Manual) Lymphocytes % (Manual) Monocytes % (Manual) Nucleated RBC % Seg Neutrophils # Seg Neutrophils # Man Lymphocytes # (Manual) Monocytes # (Manual) PT INR D-Dimer ABG pH POC ABG pCO2 POC ABG pO2 ABG pO2 ABG HCO3 ABG O2 Saturation ABG Base Excess ABG Hemoglobin ABG Oxyhemoglobin ABG Sodium ABG Potassium ABG Glucose Oxyhemoglobin Sodium Potassium Chloride Carbon Dioxide BUN Glucose POC Glucose Lactic Acid 2.10 H* Phosphorus Magnesium Ferritin 877.5 H Lactate Dehydrogenase C-Reactive Protein NT-Pro-B Natriuret Pep Total Protein Albumin Triglycerides Arterial Blood Glucose Ur Specific [place] 1.041 H Coronavirus (PCR) 03/09/21 03/09/21 03/09/21 07:46 08:00 13:01 WBC RBC Hgb Hct MCHC RDW Lymph % (Auto) [place] % (Auto) [place] # (Auto) Seg Neutrophils % Seg Neuts % (Manual) Lymphocytes % (Manual) Monocytes % (Manual) Nucleated RBC % Seg Neutrophils # Seg Neutrophils # Man Lymphocytes # (Manual) Monocytes # (Manual) PT INR D-Dimer ABG pH POC ABG pCO2 POC ABG pO2 ABG pO2 ABG HCO3 ABG O2 Saturation ABG Base Excess ABG Hemoglobin ABG Oxyhemoglobin ABG Sodium ABG Potassium ABG Glucose Oxyhemoglobin Sodium Potassium Chloride Carbon Dioxide BUN Glucose POC Glucose 191 H 182 H Lactic Acid Phosphorus Magnesium Ferritin Lactate Dehydrogenase C-Reactive Protein NT-Pro-B Natriuret Pep Total Protein Albumin Triglycerides Arterial Blood Glucose Ur Specific [place] Coronavirus (PCR) Positive A 03/09/21 03/09/21 03/09/21 15:19 17:48 18:10 WBC RBC Hgb Hct MCHC RDW Lymph % (Auto) [place] % (Auto) [place] # (Auto) Seg Neutrophils % Seg Neuts % (Manual) Lymphocytes % (Manual) Monocytes % (Manual) Nucleated RBC % Seg Neutrophils # Seg Neutrophils # Man Lymphocytes # (Manual) Monocytes # (Manual) PT INR D-Dimer ABG pH POC ABG pCO2 POC ABG pO2 ABG pO2 47.3 L ABG HCO3 26.3 H ABG O2 Saturation 83.7 L ABG Base Excess ABG Hemoglobin ABG Oxyhemoglobin ABG Sodium ABG Potassium ABG Glucose Oxyhemoglobin 82.1 L Sodium Potassium Chloride Carbon Dioxide BUN 29 H Glucose 214 H POC Glucose 194 H Lactic Acid Phosphorus Magnesium Ferritin Lactate Dehydrogenase C-Reactive Protein NT-Pro-B Natriuret Pep Total Protein Albumin 3.4 L Triglycerides Arterial Blood Glucose Ur Specific [place] Coronavirus (PCR) 03/09/21 03/10/21 03/10/21 20:40 04:29 04:29 WBC 20.6 H RBC 5.07 H Hgb Hct 46.2 H MCHC RDW Lymph % (Auto) [place] % (Auto) [place] # (Auto) Seg Neutrophils % Seg Neuts % (Manual) 94.0 H Lymphocytes % (Manual) 1.0 L Monocytes % (Manual) Nucleated RBC % 3.0 H Seg Neutrophils # Seg Neutrophils # Man 19.4 H Lymphocytes # (Manual) 0.2 L Monocytes # (Manual) 1.0 H PT INR D-Dimer ABG pH POC ABG pCO2 POC ABG pO2 ABG pO2 ABG HCO3 ABG O2 Saturation ABG Base Excess ABG Hemoglobin ABG Oxyhemoglobin ABG Sodium ABG Potassium ABG Glucose Oxyhemoglobin Sodium Potassium Chloride Carbon Dioxide BUN 29 H Glucose 188 H POC Glucose 176 H Lactic Acid Phosphorus Magnesium Ferritin Lactate Dehydrogenase C-Reactive Protein NT-Pro-B Natriuret Pep Total Protein Albumin 3.3 L Triglycerides Arterial Blood Glucose Ur Specific [place] Coronavirus (PCR) 03/10/21 03/10/21 03/10/21 05:22 10:27 15:25 WBC RBC Hgb Hct MCHC RDW Lymph % (Auto) [place] % (Auto) [place] # (Auto) Seg Neutrophils % Seg Neuts % (Manual) Lymphocytes % (Manual) Monocytes % (Manual) Nucleated RBC % Seg Neutrophils # Seg Neutrophils # Man Lymphocytes # (Manual) Monocytes # (Manual) PT INR D-Dimer ABG pH 7.488 H 7.488 H POC ABG pCO2 POC ABG pO2 ABG pO2 47.7 L 50.5 L ABG HCO3 ABG O2 Saturation 86.2 L 87.9 L ABG Base Excess ABG Hemoglobin ABG Oxyhemoglobin ABG Sodium ABG Potassium ABG Glucose Oxyhemoglobin 84.6 L 86.2 L Sodium Potassium Chloride Carbon Dioxide BUN Glucose POC Glucose 155 H Lactic Acid Phosphorus Magnesium Ferritin Lactate Dehydrogenase C-Reactive Protein NT-Pro-B Natriuret Pep Total Protein Albumin Triglycerides Arterial Blood Glucose Ur Specific [place] Coronavirus (PCR) 03/10/21 03/10/21 03/11/21 18:10 18:55 00:07 WBC RBC Hgb Hct MCHC RDW Lymph % (Auto) [place] % (Auto) [place] # (Auto) Seg Neutrophils % Seg Neuts % (Manual) Lymphocytes % (Manual) Monocytes % (Manual) Nucleated RBC % Seg Neutrophils # Seg Neutrophils # Man Lymphocytes # (Manual) Monocytes # (Manual) PT INR D-Dimer ABG pH 7.343 L POC ABG pCO2 POC ABG pO2 ABG pO2 60.4 L ABG HCO3 27.9 H ABG O2 Saturation 88.7 L ABG Base Excess ABG Hemoglobin ABG Oxyhemoglobin ABG Sodium ABG Potassium ABG Glucose Oxyhemoglobin 86.9 L Sodium Potassium Chloride Carbon Dioxide BUN Glucose POC Glucose 187 H 139 H Lactic Acid Phosphorus Magnesium Ferritin Lactate Dehydrogenase C-Reactive Protein NT-Pro-B Natriuret Pep Total Protein Albumin Triglycerides Arterial Blood Glucose Ur Specific [place] Coronavirus (PCR) 03/11/21 03/11/21 03/11/21 02:09 04:28 08:06 WBC RBC Hgb Hct MCHC RDW Lymph % (Auto) [place] % (Auto) [place] # (Auto) Seg Neutrophils % Seg Neuts % (Manual) Lymphocytes % (Manual) Monocytes % (Manual) Nucleated RBC % Seg Neutrophils # Seg Neutrophils # Man Lymphocytes # (Manual) Monocytes # (Manual) PT INR D-Dimer ABG pH 7.277 L POC ABG pCO2 55.9 H POC ABG pO2 54.4 L ABG pO2 ABG HCO3 ABG O2 Saturation ABG Base Excess ABG Hemoglobin ABG Oxyhemoglobin 83.0 L ABG Sodium ABG Potassium 4.8 H ABG Glucose 180 H Oxyhemoglobin Sodium Potassium Chloride Carbon Dioxide BUN 38 H Glucose 249 H POC Glucose 278 H Lactic Acid Phosphorus Magnesium Ferritin Lactate Dehydrogenase C-Reactive Protein NT-Pro-B Natriuret Pep Total Protein Albumin 3.2 L Triglycerides Arterial Blood Glucose 180 H Ur Specific [place] Coronavirus (PCR) 03/11/21 03/11/21 03/11/21 11:29 15:06 15:48 WBC RBC Hgb Hct MCHC RDW Lymph % (Auto) [place] % (Auto) [place] # (Auto) Seg Neutrophils % Seg Neuts % (Manual) Lymphocytes % (Manual) Monocytes % (Manual) Nucleated RBC % Seg Neutrophils # Seg Neutrophils # Man Lymphocytes # (Manual) Monocytes # (Manual) PT INR D-Dimer ABG pH 7.260 L POC ABG pCO2 POC ABG pO2 ABG pO2 53.5 L ABG HCO3 29.5 H ABG O2 Saturation 84.0 L ABG Base Excess ABG Hemoglobin ABG Oxyhemoglobin ABG Sodium ABG Potassium ABG Glucose Oxyhemoglobin 82.3 L Sodium Potassium Chloride Carbon Dioxide BUN Glucose POC Glucose 288 H 295 H Lactic Acid Phosphorus Magnesium Ferritin Lactate Dehydrogenase C-Reactive Protein NT-Pro-B Natriuret Pep Total Protein Albumin Triglycerides Arterial Blood Glucose Ur Specific [place] Coronavirus (PCR) 03/12/21 03/12/21 03/12/21 00:01 05:24 08:03 WBC RBC Hgb Hct MCHC RDW Lymph % (Auto) [place] % (Auto) [place] # (Auto) Seg Neutrophils % Seg Neuts % (Manual) Lymphocytes % (Manual) Monocytes % (Manual) Nucleated RBC % Seg Neutrophils # Seg Neutrophils # Man Lymphocytes # (Manual) Monocytes # (Manual) PT INR D-Dimer ABG pH POC ABG pCO2 POC ABG pO2 ABG pO2 ABG HCO3 ABG O2 Saturation ABG Base Excess ABG Hemoglobin ABG Oxyhemoglobin ABG Sodium ABG Potassium ABG Glucose Oxyhemoglobin Sodium 135 L Potassium Chloride Carbon Dioxide BUN 48 H Glucose 358 H POC Glucose 304 H 310 H Lactic Acid Phosphorus Magnesium Ferritin Lactate Dehydrogenase C-Reactive Protein NT-Pro-B Natriuret Pep Total Protein 6.0 L Albumin 2.9 L Triglycerides Arterial Blood Glucose Ur Specific [place] Coronavirus (PCR) 03/12/21 03/12/21 03/12/21 08:03 10:43 11:31 WBC 14.6 H RBC Hgb Hct MCHC RDW Lymph % (Auto) [place] % (Auto) [place] # (Auto) Seg Neutrophils % Seg Neuts % (Manual) Lymphocytes % (Manual) Monocytes % (Manual) Nucleated RBC % Seg Neutrophils # Seg Neutrophils # Man Lymphocytes # (Manual) Monocytes # (Manual) PT INR D-Dimer ABG pH 7.248 L POC ABG pCO2 POC ABG pO2 ABG pO2 73.7 L ABG HCO3 32.0 H ABG O2 Saturation 93.9 L ABG Base Excess ABG Hemoglobin ABG Oxyhemoglobin ABG Sodium ABG Potassium ABG Glucose Oxyhemoglobin 92.1 L Sodium Potassium Chloride Carbon Dioxide BUN Glucose POC Glucose 359 H Lactic Acid Phosphorus Magnesium Ferritin Lactate Dehydrogenase C-Reactive Protein NT-Pro-B Natriuret Pep Total Protein Albumin Triglycerides Arterial Blood Glucose Ur Specific [place] Coronavirus (PCR) 03/12/21 03/12/21 03/13/21 17:20 21:54 00:02 WBC RBC Hgb Hct MCHC RDW Lymph % (Auto) [place] % (Auto) [place] # (Auto) Seg Neutrophils % Seg Neuts % (Manual) Lymphocytes % (Manual) Monocytes % (Manual) Nucleated RBC % Seg Neutrophils # Seg Neutrophils # Man Lymphocytes # (Manual) Monocytes # (Manual) PT INR D-Dimer ABG pH 7.238 L POC ABG pCO2 71.9 H POC ABG pO2 53.6 L ABG pO2 ABG HCO3 ABG O2 Saturation ABG Base Excess ABG Hemoglobin ABG Oxyhemoglobin 84.8 L ABG Sodium 134.2 L ABG Potassium 4.9 H ABG Glucose 306 H Oxyhemoglobin Sodium Potassium Chloride Carbon Dioxide BUN Glucose POC Glucose 374 H 308 H Lactic Acid Phosphorus Magnesium Ferritin Lactate Dehydrogenase C-Reactive Protein NT-Pro-B Natriuret Pep Total Protein Albumin Triglycerides Arterial Blood Glucose 306 H Ur Specific [place] Coronavirus (PCR) 03/13/21 03/13/21 03/13/21 05:22 05:44 05:44 WBC 13.9 H RBC Hgb Hct MCHC RDW Lymph % (Auto) [place] % (Auto) [place] # (Auto) Seg Neutrophils % Seg Neuts % (Manual) Lymphocytes % (Manual) Monocytes % (Manual) Nucleated RBC % Seg Neutrophils # Seg Neutrophils # Man Lymphocytes # (Manual) Monocytes # (Manual) PT INR D-Dimer 3567.97 H ABG pH POC ABG pCO2 POC ABG pO2 ABG pO2 ABG HCO3 ABG O2 Saturation ABG Base Excess ABG Hemoglobin ABG Oxyhemoglobin ABG Sodium ABG Potassium ABG Glucose Oxyhemoglobin Sodium Potassium Chloride Carbon Dioxide BUN Glucose POC Glucose 316 H Lactic Acid Phosphorus Magnesium Ferritin Lactate Dehydrogenase C-Reactive Protein NT-Pro-B Natriuret Pep Total Protein Albumin Triglycerides Arterial Blood Glucose Ur Specific [place] Coronavirus (PCR) 03/13/21 03/13/21 03/13/21 05:44 05:44 11:15 WBC RBC Hgb Hct MCHC RDW Lymph % (Auto) [place] % (Auto) [place] # (Auto) Seg Neutrophils % Seg Neuts % (Manual) Lymphocytes % (Manual) Monocytes % (Manual) Nucleated RBC % Seg Neutrophils # Seg Neutrophils # Man Lymphocytes # (Manual) Monocytes # (Manual) PT INR D-Dimer ABG pH 7.310 L POC ABG pCO2 POC ABG pO2 ABG pO2 52.3 L ABG HCO3 34.1 H ABG O2 Saturation 86.8 L ABG Base Excess 5.5 H ABG Hemoglobin 13.8 L ABG Oxyhemoglobin ABG Sodium ABG Potassium ABG Glucose Oxyhemoglobin 85.1 L Sodium Potassium Chloride Carbon Dioxide BUN Glucose POC Glucose Lactic Acid Phosphorus Magnesium Ferritin 858.7 H Lactate Dehydrogenase 348 H C-Reactive Protein 2.80 H NT-Pro-B Natriuret Pep Total Protein Albumin Triglycerides Arterial Blood Glucose Ur Specific [place] Coronavirus (PCR) 03/13/21 03/13/21 03/13/21 11:21 15:47 19:23 WBC RBC Hgb Hct MCHC RDW Lymph % (Auto) [place] % (Auto) [place] # (Auto) Seg Neutrophils % Seg Neuts % (Manual) Lymphocytes % (Manual) Monocytes % (Manual) Nucleated RBC % Seg Neutrophils # Seg Neutrophils # Man Lymphocytes # (Manual) Monocytes # (Manual) PT INR D-Dimer ABG pH POC ABG pCO2 POC ABG pO2 ABG pO2 ABG HCO3 ABG O2 Saturation ABG Base Excess ABG Hemoglobin ABG Oxyhemoglobin ABG Sodium ABG Potassium ABG Glucose Oxyhemoglobin Sodium 136 L Potassium 5.9 H Chloride Carbon Dioxide BUN 50 H Glucose 397 H POC Glucose 322 H 317 H Lactic Acid Phosphorus Magnesium Ferritin Lactate Dehydrogenase C-Reactive Protein NT-Pro-B Natriuret Pep Total Protein Albumin Triglycerides Arterial Blood Glucose Ur Specific [place] Coronavirus (PCR) 03/13/21 03/14/21 03/14/21 23:46 05:32 05:50 WBC 11.6 H RBC Hgb Hct MCHC RDW Lymph % (Auto) [place] % (Auto) [place] # (Auto) Seg Neutrophils % Seg Neuts % (Manual) Lymphocytes % (Manual) Monocytes % (Manual) Nucleated RBC % Seg Neutrophils # Seg Neutrophils # Man Lymphocytes # (Manual) Monocytes # (Manual) PT INR D-Dimer ABG pH POC ABG pCO2 POC ABG pO2 ABG pO2 ABG HCO3 ABG O2 Saturation ABG Base Excess ABG Hemoglobin ABG Oxyhemoglobin ABG Sodium ABG Potassium ABG Glucose Oxyhemoglobin Sodium Potassium Chloride Carbon Dioxide BUN Glucose POC Glucose 332 H 316 H Lactic Acid Phosphorus Magnesium Ferritin Lactate Dehydrogenase C-Reactive Protein NT-Pro-B Natriuret Pep Total Protein Albumin Triglycerides Arterial Blood Glucose Ur Specific [place] Coronavirus (PCR) 03/14/21 03/14/21 03/14/21 05:50 11:33 16:53 WBC RBC Hgb Hct MCHC RDW Lymph % (Auto) [place] % (Auto) [place] # (Auto) Seg Neutrophils % Seg Neuts % (Manual) Lymphocytes % (Manual) Monocytes % (Manual) Nucleated RBC % Seg Neutrophils # Seg Neutrophils # Man Lymphocytes # (Manual) Monocytes # (Manual) PT INR D-Dimer ABG pH POC ABG pCO2 POC ABG pO2 ABG pO2 ABG HCO3 ABG O2 Saturation ABG Base Excess ABG Hemoglobin ABG Oxyhemoglobin ABG Sodium ABG Potassium ABG Glucose Oxyhemoglobin Sodium Potassium 5.9 H Chloride Carbon Dioxide 31 H BUN 48 H Glucose 380 H POC Glucose 315 H 235 H Lactic Acid Phosphorus Magnesium 3.40 H Ferritin Lactate Dehydrogenase C-Reactive Protein NT-Pro-B Natriuret Pep Total Protein Albumin Triglycerides Arterial Blood Glucose Ur Specific [place] Coronavirus (PCR) 03/14/21 03/14/21 03/15/21 18:34 23:27 01:22 WBC RBC Hgb Hct 46.3 H MCHC RDW Lymph % (Auto) [place] % (Auto) [place] # (Auto) Seg Neutrophils % Seg Neuts % (Manual) Lymphocytes % (Manual) Monocytes % (Manual) Nucleated RBC % Seg Neutrophils # Seg Neutrophils # Man Lymphocytes # (Manual) Monocytes # (Manual) PT INR D-Dimer ABG pH POC ABG pCO2 POC ABG pO2 ABG pO2 ABG HCO3 ABG O2 Saturation ABG Base Excess ABG Hemoglobin ABG Oxyhemoglobin ABG Sodium ABG Potassium ABG Glucose Oxyhemoglobin Sodium 146 H Potassium Chloride Carbon Dioxide 34 H BUN 49 H Glucose 285 H POC Glucose 203 H Lactic Acid Phosphorus Magnesium Ferritin Lactate Dehydrogenase C-Reactive Protein NT-Pro-B Natriuret Pep Total Protein Albumin Triglycerides Arterial Blood Glucose Ur Specific [place] Coronavirus (PCR) 03/15/21 03/15/21 03/15/21 04:00 06:06 06:06 WBC RBC Hgb Hct MCHC RDW Lymph % (Auto) [place] % (Auto) [place] # (Auto) Seg Neutrophils % Seg Neuts % (Manual) Lymphocytes % (Manual) Monocytes % (Manual) Nucleated RBC % Seg Neutrophils # Seg Neutrophils # Man Lymphocytes # (Manual) Monocytes # (Manual) PT INR D-Dimer 1781.79 H ABG pH POC ABG pCO2 POC ABG pO2 ABG pO2 ABG HCO3 ABG O2 Saturation ABG Base Excess ABG Hemoglobin ABG Oxyhemoglobin ABG Sodium ABG Potassium ABG Glucose Oxyhemoglobin Sodium 148 H Potassium 5.7 H D Chloride 108.0 H Carbon Dioxide 31 H BUN 46 H Glucose 139 H POC Glucose Lactic Acid Phosphorus 4.80 H D Magnesium 3.00 H Ferritin 976.4 H Lactate Dehydrogenase 630 H C-Reactive Protein NT-Pro-B Natriuret Pep Total Protein Albumin Triglycerides Arterial Blood Glucose Ur Specific [place] Coronavirus (PCR) 03/15/21 03/15/21 03/15/21 11:56 14:05 17:09 WBC RBC Hgb Hct MCHC RDW Lymph % (Auto) [place] % (Auto) [place] # (Auto) Seg Neutrophils % Seg Neuts % (Manual) Lymphocytes % (Manual) Monocytes % (Manual) Nucleated RBC % Seg Neutrophils # Seg Neutrophils # Man Lymphocytes # (Manual) Monocytes # (Manual) PT INR D-Dimer ABG pH POC ABG pCO2 POC ABG pO2 ABG pO2 52.1 L ABG HCO3 36.6 H ABG O2 Saturation 87.6 L ABG Base Excess 9.5 H ABG Hemoglobin ABG Oxyhemoglobin ABG Sodium ABG Potassium ABG Glucose Oxyhemoglobin 85.7 L Sodium Potassium Chloride Carbon Dioxide BUN Glucose POC Glucose 219 H 263 H Lactic Acid Phosphorus Magnesium Ferritin Lactate Dehydrogenase C-Reactive Protein NT-Pro-B Natriuret Pep Total Protein Albumin Triglycerides Arterial Blood Glucose Ur Specific [place] Coronavirus (PCR) 03/16/21 03/16/21 03/16/21 00:32 04:11 04:11 WBC 11.9 H RBC Hgb Hct MCHC 30 L RDW Lymph % (Auto) [place] % (Auto) [place] # (Auto) Seg Neutrophils % Seg Neuts % (Manual) Lymphocytes % (Manual) Monocytes % (Manual) Nucleated RBC % Seg Neutrophils # Seg Neutrophils # Man Lymphocytes # (Manual) Monocytes # (Manual) PT INR D-Dimer ABG pH POC ABG pCO2 POC ABG pO2 ABG pO2 ABG HCO3 ABG O2 Saturation ABG Base Excess ABG Hemoglobin ABG Oxyhemoglobin ABG Sodium ABG Potassium ABG Glucose Oxyhemoglobin Sodium 151 H Potassium Chloride Carbon Dioxide 35 H BUN 48 H Glucose 152 H POC Glucose 165 H Lactic Acid Phosphorus Magnesium Ferritin Lactate Dehydrogenase C-Reactive Protein NT-Pro-B Natriuret Pep Total Protein Albumin Triglycerides Arterial Blood Glucose Ur Specific [place] Coronavirus (PCR) 03/16/21 03/16/21 03/16/21 04:11 05:26 11:35 WBC RBC Hgb Hct MCHC RDW Lymph % (Auto) [place] % (Auto) [place] # (Auto) Seg Neutrophils % Seg Neuts % (Manual) Lymphocytes % (Manual) Monocytes % (Manual) Nucleated RBC % Seg Neutrophils # Seg Neutrophils # Man Lymphocytes # (Manual) Monocytes # (Manual) PT INR D-Dimer ABG pH POC ABG pCO2 POC ABG pO2 ABG pO2 ABG HCO3 ABG O2 Saturation ABG Base Excess ABG Hemoglobin ABG Oxyhemoglobin ABG Sodium ABG Potassium ABG Glucose Oxyhemoglobin Sodium Potassium Chloride Carbon Dioxide BUN Glucose POC Glucose 162 H 187 H Lactic Acid Phosphorus Magnesium Ferritin Lactate Dehydrogenase C-Reactive Protein NT-Pro-B Natriuret Pep Total Protein Albumin Triglycerides 267 H Arterial Blood Glucose Ur Specific [place] Coronavirus (PCR) 03/16/21 03/16/21 03/16/21 17:29 22:25 23:22 WBC RBC Hgb Hct MCHC RDW Lymph % (Auto) [place] % (Auto) [place] # (Auto) Seg Neutrophils % Seg Neuts % (Manual) Lymphocytes % (Manual) Monocytes % (Manual) Nucleated RBC % Seg Neutrophils # Seg Neutrophils # Man Lymphocytes # (Manual) Monocytes # (Manual) PT INR D-Dimer ABG pH POC ABG pCO2 POC ABG pO2 ABG pO2 ABG HCO3 ABG O2 Saturation ABG Base Excess ABG Hemoglobin ABG Oxyhemoglobin ABG Sodium ABG Potassium ABG Glucose Oxyhemoglobin Sodium Potassium Chloride Carbon Dioxide BUN Glucose POC Glucose 237 H 165 H 189 H Lactic Acid Phosphorus Magnesium Ferritin Lactate Dehydrogenase C-Reactive Protein NT-Pro-B Natriuret Pep Total Protein Albumin Triglycerides Arterial Blood Glucose Ur Specific [place] Coronavirus (PCR) 03/17/21 03/17/21 03/17/21 04:40 04:40 04:40 WBC 14.1 H RBC Hgb Hct MCHC RDW 15.3 H Lymph % (Auto) 12.6 L [place] % (Auto) 11.3 H [place] # (Auto) 1.6 H Seg Neutrophils % 74.9 H Seg Neuts % (Manual) Lymphocytes % (Manual) Monocytes % (Manual) Nucleated RBC % Seg Neutrophils # 10.5 H Seg Neutrophils # Man Lymphocytes # (Manual) Monocytes # (Manual) PT INR D-Dimer 1359.12 H ABG pH POC ABG pCO2 POC ABG pO2 ABG pO2 ABG HCO3 ABG O2 Saturation ABG Base Excess ABG Hemoglobin ABG Oxyhemoglobin ABG Sodium ABG Potassium ABG Glucose Oxyhemoglobin Sodium 148 H Potassium Chloride 107.5 H Carbon Dioxide 33 H BUN 42 H Glucose 183 H POC Glucose Lactic Acid Phosphorus Magnesium 2.70 H Ferritin Lactate Dehydrogenase C-Reactive Protein NT-Pro-B Natriuret Pep Total Protein Albumin Triglycerides Arterial Blood Glucose Ur Specific [place] Coronavirus (PCR) 03/17/21 03/17/21 05:53 11:05 WBC RBC Hgb Hct MCHC RDW Lymph % (Auto) [place] % (Auto) [place] # (Auto) Seg Neutrophils % Seg Neuts % (Manual) Lymphocytes % (Manual) Monocytes % (Manual) Nucleated RBC % Seg Neutrophils # Seg Neutrophils # Man Lymphocytes # (Manual) Monocytes # (Manual) PT INR D-Dimer ABG pH POC ABG pCO2 POC ABG pO2 ABG pO2 ABG HCO3 35.7 H ABG O2 Saturation ABG Base Excess 8.7 H ABG Hemoglobin ABG Oxyhemoglobin ABG Sodium ABG Potassium ABG Glucose Oxyhemoglobin 94.2 L Sodium Potassium Chloride Carbon Dioxide BUN Glucose POC Glucose 176 H Lactic Acid Phosphorus Magnesium Ferritin Lactate Dehydrogenase C-Reactive Protein NT-Pro-B Natriuret Pep Total Protein Albumin Triglycerides Arterial Blood Glucose Ur Specific [place] Coronavirus (PCR)
[2021-03-17] MEDS: ACETAMINOPHEN 325 MG TAB PO PRN (12:08)
[2021-03-17] MEDS ORDERED: QUEtiapine 25 MG TAB PO SCH (12:17)
--- NOTE | 2021-03-17 12:54 | Progress Note ---
Assessment and Plan Acute hypoxemic respiratory failure, on MVS COVID-19 infection Bilateral pneumonia Obesity BMI 36 Hypertension Leukocytosis Possible venous thromboembolic phenomena with significantly elevated D-dimers DM II Elevated serum inflammatory markers to include CRP levels, ferritin and LDH Hyperkalemia Antibiotics per ID CXR in am, plan to start SBTs in the morning - VAP bundle addressed, aspiration precautions - continue to titrate supplemental oxygen to keep SpO2 88-90% -Lung protective strategies - aspiration precautions - continue bronchodilators with pulmonary hygiene per RT - continue accuchecks with glycemic control per SSI (While critically ill target blood glucose of 140-180 mg/dL; avoid hypoglycemia) - avoid nephrotoxins, renally dose all medications - avoid benzodiazepines, reduce the possibility of delirium - sedation target for RASS -1 to -2 -On Propofol and Fentanyl - prn analgesia per pain score - Maintenance of sleep-wake cycle, avoid delirium - Stress ulcer prophylaxis -Therapeutic anticoagulation- on Enoxaparin - mobility, off loading and frequent turning per facility protocol for pressure ulcer prevention - Monitor hemodynamics closely - continue other care per attending / other consultants COVID SPECIFIC INTERVENTIONS - Remdesivir as per ID/Pulmonary developed protocols - continue systemic steroids for severe COVID-19 infection (Decadron) - Monitor inflammatory markers per facility protocol - ferritin, Ddimer, CRP - therapeutic anticoagulation per system Protocol based on d-dimer and clinical considerations -on therapeutic enoxaparin - Continue contact and airborne isolation CONDITION: CRITICAL PROGNOSIS: GUARDED CODE STATUS: FULL CODE The high probability of a clinically significant, sudden or life-threatening deterioration of the [respiratory, cardiovascular & hematologic] system(s) required my full and direct attention, intervention and personal management. The aggregate critical care time was [35] minutes without overlap. Time includes spent on; [x] Data Review and interpretation [x] Patient assessment and monitoring of vital signs [x] Documentation [x] Medication orders and management Subjective Date of service: 03/17/21 Principal diagnosis: COVID-19 infection; DM II; Bilateral pneumonia; Obesity; HTN Interval history: Patient is seen today for: Acute hypoxemic respiratory failure; COVID-19 infection; DM II; Bilateral pneumonia; Obesity; HTN Seen and examined at bedside; 24hour events reviewed; nursing and respiratory care staff consulted; no adverse overnight events reported to me; resting in bed ; on MVS PEEP +8, FIO2 50%; no emesis or overt aspiration; On Propofol and Fentanyl. On going intermittent fevers Objective Vital Signs - 12hr 03/17/21 03/17/21 03/17/21 01:00 01:31 02:00 Temperature Pulse Rate 99 H 107 H 104 H Pulse Rate [ From Monitor] Pulse Rate [ Left Dorsalis Pedis] Pulse Rate [ Left Radial] Pulse Rate [ Right Dorsalis Pedis] Pulse Rate [ Right Radial] Respiratory 20 16 20 Rate Blood Pressure 95/62 171/107 120/69 O2 Sat by Pulse 94 95 90 Oximetry 03/17/21 03/17/21 03/17/21 02:30 03:00 03:10 Temperature 99.3 F Pulse Rate 104 H 103 H Pulse Rate [ From Monitor] Pulse Rate [ Left Dorsalis Pedis] Pulse Rate [ Left Radial] Pulse Rate [ Right Dorsalis Pedis] Pulse Rate [ Right Radial] Respiratory 23 25 H Rate Blood Pressure 117/62 109/63 O2 Sat by Pulse 94 95 Oximetry 03/17/21 03/17/21 03/17/21 03:30 04:00 04:31 Temperature Pulse Rate 102 H 101 H 132 H Pulse Rate [ 99 H From Monitor] Pulse Rate [ Left Dorsalis Pedis] Pulse Rate [ Left Radial] Pulse Rate [ Right Dorsalis Pedis] Pulse Rate [ Right Radial] Respiratory 25 H 25 H 30 H Rate Blood Pressure 109/62 113/56 112/82 O2 Sat by Pulse 96 95 96 Oximetry 03/17/21 03/17/21 03/17/21 05:01 05:15 05:31 Temperature Pulse Rate 127 H 117 H 114 H Pulse Rate [ From Monitor] Pulse Rate [ Left Dorsalis Pedis] Pulse Rate [ Left Radial] Pulse Rate [ Right Dorsalis Pedis] Pulse Rate [ Right Radial] Respiratory 18 14 Rate Blood Pressure 197/108 197/108 121/69 O2 Sat by Pulse 92 89 89 Oximetry 03/17/21 03/17/21 03/17/21 06:00 06:27 06:30 Temperature Pulse Rate 106 H 106 H 106 H Pulse Rate [ From Monitor] Pulse Rate [ Left Dorsalis Pedis] Pulse Rate [ Left Radial] Pulse Rate [ Right Dorsalis Pedis] Pulse Rate [ Right Radial] Respiratory 17 25 H Rate Blood Pressure 116/62 116/62 101/66 O2 Sat by Pulse 92 95 Oximetry 03/17/21 03/17/21 03/17/21 07:00 07:24 07:30 Temperature 98.2 F Pulse Rate 105 H 105 H Pulse Rate [ From Monitor] Pulse Rate [ Left Dorsalis Pedis] Pulse Rate [ Left Radial] Pulse Rate [ Right Dorsalis Pedis] Pulse Rate [ Right Radial] Respiratory 22 24 Rate Blood Pressure 111/60 106/63 O2 Sat by Pulse 95 95 Oximetry 03/17/21 03/17/21 03/17/21 08:00 08:30 09:01 Temperature Pulse Rate 121 H 142 H 112 H Pulse Rate [ 121 H From Monitor] Pulse Rate [ 120 H Left Dorsalis Pedis] Pulse Rate [ 118 H Left Radial] Pulse Rate [ 120 H Right Dorsalis Pedis] Pulse Rate [ 118 H Right Radial] Respiratory 18 25 H 14 Rate Blood Pressure 106/63 203/120 121/76 O2 Sat by Pulse 97 96 87 Oximetry 03/17/21 03/17/21 03/17/21 09:30 10:00 10:31 Temperature Pulse Rate 106 H 103 H 126 H Pulse Rate [ From Monitor] Pulse Rate [ Left Dorsalis Pedis] Pulse Rate [ Left Radial] Pulse Rate [ Right Dorsalis Pedis] Pulse Rate [ Right Radial] Respiratory 17 24 28 H Rate Blood Pressure 115/67 114/67 208/118 O2 Sat by Pulse 88 91 98 Oximetry 03/17/21 03/17/21 03/17/21 10:45 11:01 11:30 Temperature Pulse Rate 121 H 116 H Pulse Rate [ From Monitor] Pulse Rate [ Left Dorsalis Pedis] Pulse Rate [ Left Radial] Pulse Rate [ Right Dorsalis Pedis] Pulse Rate [ Right Radial] Respiratory 28 H 23 Rate Blood Pressure 205/118 160/82 175/112 O2 Sat by Pulse 94 92 94 Oximetry 03/17/21 12:07 Temperature 101.5 F H Pulse Rate Pulse Rate [ From Monitor] Pulse Rate [ Left Dorsalis Pedis] Pulse Rate [ Left Radial] Pulse Rate [ Right Dorsalis Pedis] Pulse Rate [ Right Radial] Respiratory Rate Blood Pressure O2 Sat by Pulse Oximetry Constitutional: agitated, appears uncomfortable Eyes: non-icteric ENT: oropharynx moist, other (ETT 24 cm CHAITANYA) Neck: supple, no lymphadenopathy, no JVD, other (large circumference) Effort: very labored Ascultation: Bilateral: diminished breath sounds, rhonchi Percussion: Bilateral: not dull Cardiovascular: regular rate and rhythm, other (tachycardia, S1,S2) Gastrointestinal: normoactive bowel sounds Integumentary: normal Extremities: no cyanosis, pulses normal, no ischemia or petechiae, edema Neurologic: pupils equal and round, unable to assess, other (sedated) Psychiatric: other (unable to assess re: AMS) CBC and BMP: 03/18/21 04:50 03/18/21 04:50 ABG, PT/INR, D-dimer: ABG ABG pH 7.398 pH Units (7.350-7.450) 03/17/21 11:05 POC ABG pCO2 71.9 mmHg (32.0-48.0) H 03/12/21 21:54 ABG pCO2 59.3 mm Hg 03/17/21 11:05 POC ABG pO2 53.6 mmHg (83-108) L 03/12/21 21:54 ABG pO2 81.1 mm Hg (80.0-90.0) 03/17/21 11:05 POC ABG HCO3 30.0 03/12/21 21:54 ABG O2 Saturation 96.0 % (95.0-99.0) 03/17/21 11:05 PT/INR, D-dimer PT 16.1 Sec. (12.2-14.9) H 03/08/21 20:24 INR 1.17 (0.87-1.13) H 03/08/21 20:24 D-Dimer 1359.12 ng/mlDDU (0-234) H 03/17/21 04:40 Abnormal lab findings: Abnormal Labs 03/08/21 03/08/21 03/08/21 20:24 20:24 20:24 WBC 22.6 H RBC 5.44 H Hgb 15.7 H Hct 49.2 H MCHC RDW Lymph % (Auto) [place] % (Auto) [place] # (Auto) Seg Neutrophils % Seg Neuts % (Manual) 83.0 H Lymphocytes % (Manual) 9.0 L Monocytes % (Manual) 8.0 H Nucleated RBC % Seg Neutrophils # Seg Neutrophils # Man 18.8 H Lymphocytes # (Manual) Monocytes # (Manual) 1.8 H PT 16.1 H INR 1.17 H D-Dimer > 35846 H ABG pH POC ABG pCO2 POC ABG pO2 ABG pO2 ABG HCO3 ABG O2 Saturation ABG Base Excess ABG Hemoglobin ABG Oxyhemoglobin ABG Sodium ABG Potassium ABG Glucose Oxyhemoglobin Sodium 136 L Potassium Chloride 93.9 L Carbon Dioxide BUN 29 H Glucose 208 H POC Glucose Lactic Acid Phosphorus Magnesium Ferritin Lactate Dehydrogenase 624 H C-Reactive Protein 18.00 H NT-Pro-B Natriuret Pep 1053 H Total Protein Albumin Triglycerides Arterial Blood Glucose Ur Specific [place] Coronavirus (PCR) 03/08/21 03/08/21 03/09/21 20:24 20:24 04:10 WBC RBC Hgb Hct MCHC RDW Lymph % (Auto) [place] % (Auto) [place] # (Auto) Seg Neutrophils % Seg Neuts % (Manual) Lymphocytes % (Manual) Monocytes % (Manual) Nucleated RBC % Seg Neutrophils # Seg Neutrophils # Man Lymphocytes # (Manual) Monocytes # (Manual) PT INR D-Dimer ABG pH POC ABG pCO2 POC ABG pO2 ABG pO2 ABG HCO3 ABG O2 Saturation ABG Base Excess ABG Hemoglobin ABG Oxyhemoglobin ABG Sodium ABG Potassium ABG Glucose Oxyhemoglobin Sodium Potassium Chloride Carbon Dioxide BUN Glucose POC Glucose Lactic Acid 2.10 H* Phosphorus Magnesium Ferritin 877.5 H Lactate Dehydrogenase C-Reactive Protein NT-Pro-B Natriuret Pep Total Protein Albumin Triglycerides Arterial Blood Glucose Ur Specific [place] 1.041 H Coronavirus (PCR) 03/09/21 03/09/21 03/09/21 07:46 08:00 13:01 WBC RBC Hgb Hct MCHC RDW Lymph % (Auto) [place] % (Auto) [place] # (Auto) Seg Neutrophils % Seg Neuts % (Manual) Lymphocytes % (Manual) Monocytes % (Manual) Nucleated RBC % Seg Neutrophils # Seg Neutrophils # Man Lymphocytes # (Manual) Monocytes # (Manual) PT INR D-Dimer ABG pH POC ABG pCO2 POC ABG pO2 ABG pO2 ABG HCO3 ABG O2 Saturation ABG Base Excess ABG Hemoglobin ABG Oxyhemoglobin ABG Sodium ABG Potassium ABG Glucose Oxyhemoglobin Sodium Potassium Chloride Carbon Dioxide BUN Glucose POC Glucose 191 H 182 H Lactic Acid Phosphorus Magnesium Ferritin Lactate Dehydrogenase C-Reactive Protein NT-Pro-B Natriuret Pep Total Protein Albumin Triglycerides Arterial Blood Glucose Ur Specific [place] Coronavirus (PCR) Positive A 03/09/21 03/09/21 03/09/21 15:19 17:48 18:10 WBC RBC Hgb Hct MCHC RDW Lymph % (Auto) [place] % (Auto) [place] # (Auto) Seg Neutrophils % Seg Neuts % (Manual) Lymphocytes % (Manual) Monocytes % (Manual) Nucleated RBC % Seg Neutrophils # Seg Neutrophils # Man Lymphocytes # (Manual) Monocytes # (Manual) PT INR D-Dimer ABG pH POC ABG pCO2 POC ABG pO2 ABG pO2 47.3 L ABG HCO3 26.3 H ABG O2 Saturation 83.7 L ABG Base Excess ABG Hemoglobin ABG Oxyhemoglobin ABG Sodium ABG Potassium ABG Glucose Oxyhemoglobin 82.1 L Sodium Potassium Chloride Carbon Dioxide BUN 29 H Glucose 214 H POC Glucose 194 H Lactic Acid Phosphorus Magnesium Ferritin Lactate Dehydrogenase C-Reactive Protein NT-Pro-B Natriuret Pep Total Protein Albumin 3.4 L Triglycerides Arterial Blood Glucose Ur Specific [place] Coronavirus (PCR) 03/09/21 03/10/21 03/10/21 20:40 04:29 04:29 WBC 20.6 H RBC 5.07 H Hgb Hct 46.2 H MCHC RDW Lymph % (Auto) [place] % (Auto) [place] # (Auto) Seg Neutrophils % Seg Neuts % (Manual) 94.0 H Lymphocytes % (Manual) 1.0 L Monocytes % (Manual) Nucleated RBC % 3.0 H Seg Neutrophils # Seg Neutrophils # Man 19.4 H Lymphocytes # (Manual) 0.2 L Monocytes # (Manual) 1.0 H PT INR D-Dimer ABG pH POC ABG pCO2 POC ABG pO2 ABG pO2 ABG HCO3 ABG O2 Saturation ABG Base Excess ABG Hemoglobin ABG Oxyhemoglobin ABG Sodium ABG Potassium ABG Glucose Oxyhemoglobin Sodium Potassium Chloride Carbon Dioxide BUN 29 H Glucose 188 H POC Glucose 176 H Lactic Acid Phosphorus Magnesium Ferritin Lactate Dehydrogenase C-Reactive Protein NT-Pro-B Natriuret Pep Total Protein Albumin 3.3 L Triglycerides Arterial Blood Glucose Ur Specific [place] Coronavirus (PCR) 03/10/21 03/10/21 03/10/21 05:22 10:27 15:25 WBC RBC Hgb Hct MCHC RDW Lymph % (Auto) [place] % (Auto) [place] # (Auto) Seg Neutrophils % Seg Neuts % (Manual) Lymphocytes % (Manual) Monocytes % (Manual) Nucleated RBC % Seg Neutrophils # Seg Neutrophils # Man Lymphocytes # (Manual) Monocytes # (Manual) PT INR D-Dimer ABG pH 7.488 H 7.488 H POC ABG pCO2 POC ABG pO2 ABG pO2 47.7 L 50.5 L ABG HCO3 ABG O2 Saturation 86.2 L 87.9 L ABG Base Excess ABG Hemoglobin ABG Oxyhemoglobin ABG Sodium ABG Potassium ABG Glucose Oxyhemoglobin 84.6 L 86.2 L Sodium Potassium Chloride Carbon Dioxide BUN Glucose POC Glucose 155 H Lactic Acid Phosphorus Magnesium Ferritin Lactate Dehydrogenase C-Reactive Protein NT-Pro-B Natriuret Pep Total Protein Albumin Triglycerides Arterial Blood Glucose Ur Specific [place] Coronavirus (PCR) 03/10/21 03/10/21 03/11/21 18:10 18:55 00:07 WBC RBC Hgb Hct MCHC RDW Lymph % (Auto) [place] % (Auto) [place] # (Auto) Seg Neutrophils % Seg Neuts % (Manual) Lymphocytes % (Manual) Monocytes % (Manual) Nucleated RBC % Seg Neutrophils # Seg Neutrophils # Man Lymphocytes # (Manual) Monocytes # (Manual) PT INR D-Dimer ABG pH 7.343 L POC ABG pCO2 POC ABG pO2 ABG pO2 60.4 L ABG HCO3 27.9 H ABG O2 Saturation 88.7 L ABG Base Excess ABG Hemoglobin ABG Oxyhemoglobin ABG Sodium ABG Potassium ABG Glucose Oxyhemoglobin 86.9 L Sodium Potassium Chloride Carbon Dioxide BUN Glucose POC Glucose 187 H 139 H Lactic Acid Phosphorus Magnesium Ferritin Lactate Dehydrogenase C-Reactive Protein NT-Pro-B Natriuret Pep Total Protein Albumin Triglycerides Arterial Blood Glucose Ur Specific [place] Coronavirus (PCR) 03/11/21 03/11/21 03/11/21 02:09 04:28 08:06 WBC RBC Hgb Hct MCHC RDW Lymph % (Auto) [place] % (Auto) [place] # (Auto) Seg Neutrophils % Seg Neuts % (Manual) Lymphocytes % (Manual) Monocytes % (Manual) Nucleated RBC % Seg Neutrophils # Seg Neutrophils # Man Lymphocytes # (Manual) Monocytes # (Manual) PT INR D-Dimer ABG pH 7.277 L POC ABG pCO2 55.9 H POC ABG pO2 54.4 L ABG pO2 ABG HCO3 ABG O2 Saturation ABG Base Excess ABG Hemoglobin ABG Oxyhemoglobin 83.0 L ABG Sodium ABG Potassium 4.8 H ABG Glucose 180 H Oxyhemoglobin Sodium Potassium Chloride Carbon Dioxide BUN 38 H Glucose 249 H POC Glucose 278 H Lactic Acid Phosphorus Magnesium Ferritin Lactate Dehydrogenase C-Reactive Protein NT-Pro-B Natriuret Pep Total Protein Albumin 3.2 L Triglycerides Arterial Blood Glucose 180 H Ur Specific [place] Coronavirus (PCR) 03/11/21 03/11/21 03/11/21 11:29 15:06 15:48 WBC RBC Hgb Hct MCHC RDW Lymph % (Auto) [place] % (Auto) [place] # (Auto) Seg Neutrophils % Seg Neuts % (Manual) Lymphocytes % (Manual) Monocytes % (Manual) Nucleated RBC % Seg Neutrophils # Seg Neutrophils # Man Lymphocytes # (Manual) Monocytes # (Manual) PT INR D-Dimer ABG pH 7.260 L POC ABG pCO2 POC ABG pO2 ABG pO2 53.5 L ABG HCO3 29.5 H ABG O2 Saturation 84.0 L ABG Base Excess ABG Hemoglobin ABG Oxyhemoglobin ABG Sodium ABG Potassium ABG Glucose Oxyhemoglobin 82.3 L Sodium Potassium Chloride Carbon Dioxide BUN Glucose POC Glucose 288 H 295 H Lactic Acid Phosphorus Magnesium Ferritin Lactate Dehydrogenase C-Reactive Protein NT-Pro-B Natriuret Pep Total Protein Albumin Triglycerides Arterial Blood Glucose Ur Specific [place] Coronavirus (PCR) 03/12/21 03/12/21 03/12/21 00:01 05:24 08:03 WBC RBC Hgb Hct MCHC RDW Lymph % (Auto) [place] % (Auto) [place] # (Auto) Seg Neutrophils % Seg Neuts % (Manual) Lymphocytes % (Manual) Monocytes % (Manual) Nucleated RBC % Seg Neutrophils # Seg Neutrophils # Man Lymphocytes # (Manual) Monocytes # (Manual) PT INR D-Dimer ABG pH POC ABG pCO2 POC ABG pO2 ABG pO2 ABG HCO3 ABG O2 Saturation ABG Base Excess ABG Hemoglobin ABG Oxyhemoglobin ABG Sodium ABG Potassium ABG Glucose Oxyhemoglobin Sodium 135 L Potassium Chloride Carbon Dioxide BUN 48 H Glucose 358 H POC Glucose 304 H 310 H Lactic Acid Phosphorus Magnesium Ferritin Lactate Dehydrogenase C-Reactive Protein NT-Pro-B Natriuret Pep Total Protein 6.0 L Albumin 2.9 L Triglycerides Arterial Blood Glucose Ur Specific [place] Coronavirus (PCR) 03/12/21 03/12/21 03/12/21 08:03 10:43 11:31 WBC 14.6 H RBC Hgb Hct MCHC RDW Lymph % (Auto) [place] % (Auto) [place] # (Auto) Seg Neutrophils % Seg Neuts % (Manual) Lymphocytes % (Manual) Monocytes % (Manual) Nucleated RBC % Seg Neutrophils # Seg Neutrophils # Man Lymphocytes # (Manual) Monocytes # (Manual) PT INR D-Dimer ABG pH 7.248 L POC ABG pCO2 POC ABG pO2 ABG pO2 73.7 L ABG HCO3 32.0 H ABG O2 Saturation 93.9 L ABG Base Excess ABG Hemoglobin ABG Oxyhemoglobin ABG Sodium ABG Potassium ABG Glucose Oxyhemoglobin 92.1 L Sodium Potassium Chloride Carbon Dioxide BUN Glucose POC Glucose 359 H Lactic Acid Phosphorus Magnesium Ferritin Lactate Dehydrogenase C-Reactive Protein NT-Pro-B Natriuret Pep Total Protein Albumin Triglycerides Arterial Blood Glucose Ur Specific [place] Coronavirus (PCR) 03/12/21 03/12/21 03/13/21 17:20 21:54 00:02 WBC RBC Hgb Hct MCHC RDW Lymph % (Auto) [place] % (Auto) [place] # (Auto) Seg Neutrophils % Seg Neuts % (Manual) Lymphocytes % (Manual) Monocytes % (Manual) Nucleated RBC % Seg Neutrophils # Seg Neutrophils # Man Lymphocytes # (Manual) Monocytes # (Manual) PT INR D-Dimer ABG pH 7.238 L POC ABG pCO2 71.9 H POC ABG pO2 53.6 L ABG pO2 ABG HCO3 ABG O2 Saturation ABG Base Excess ABG Hemoglobin ABG Oxyhemoglobin 84.8 L ABG Sodium 134.2 L ABG Potassium 4.9 H ABG Glucose 306 H Oxyhemoglobin Sodium Potassium Chloride Carbon Dioxide BUN Glucose POC Glucose 374 H 308 H Lactic Acid Phosphorus Magnesium Ferritin Lactate Dehydrogenase C-Reactive Protein NT-Pro-B Natriuret Pep Total Protein Albumin Triglycerides Arterial Blood Glucose 306 H Ur Specific [place] Coronavirus (PCR) 03/13/21 03/13/21 03/13/21 05:22 05:44 05:44 WBC 13.9 H RBC Hgb Hct MCHC RDW Lymph % (Auto) [place] % (Auto) [place] # (Auto) Seg Neutrophils % Seg Neuts % (Manual) Lymphocytes % (Manual) Monocytes % (Manual) Nucleated RBC % Seg Neutrophils # Seg Neutrophils # Man Lymphocytes # (Manual) Monocytes # (Manual) PT INR D-Dimer 3567.97 H ABG pH POC ABG pCO2 POC ABG pO2 ABG pO2 ABG HCO3 ABG O2 Saturation ABG Base Excess ABG Hemoglobin ABG Oxyhemoglobin ABG Sodium ABG Potassium ABG Glucose Oxyhemoglobin Sodium Potassium Chloride Carbon Dioxide BUN Glucose POC Glucose 316 H Lactic Acid Phosphorus Magnesium Ferritin Lactate Dehydrogenase C-Reactive Protein NT-Pro-B Natriuret Pep Total Protein Albumin Triglycerides Arterial Blood Glucose Ur Specific [place] Coronavirus (PCR) 03/13/21 03/13/21 03/13/21 05:44 05:44 11:15 WBC RBC Hgb Hct MCHC RDW Lymph % (Auto) [place] % (Auto) [place] # (Auto) Seg Neutrophils % Seg Neuts % (Manual) Lymphocytes % (Manual) Monocytes % (Manual) Nucleated RBC % Seg Neutrophils # Seg Neutrophils # Man Lymphocytes # (Manual) Monocytes # (Manual) PT INR D-Dimer ABG pH 7.310 L POC ABG pCO2 POC ABG pO2 ABG pO2 52.3 L ABG HCO3 34.1 H ABG O2 Saturation 86.8 L ABG Base Excess 5.5 H ABG Hemoglobin 13.8 L ABG Oxyhemoglobin ABG Sodium ABG Potassium ABG Glucose Oxyhemoglobin 85.1 L Sodium Potassium Chloride Carbon Dioxide BUN Glucose POC Glucose Lactic Acid Phosphorus Magnesium Ferritin 858.7 H Lactate Dehydrogenase 348 H C-Reactive Protein 2.80 H NT-Pro-B Natriuret Pep Total Protein Albumin Triglycerides Arterial Blood Glucose Ur Specific [place] Coronavirus (PCR) 03/13/21 03/13/21 03/13/21 11:21 15:47 19:23 WBC RBC Hgb Hct MCHC RDW Lymph % (Auto) [place] % (Auto) [place] # (Auto) Seg Neutrophils % Seg Neuts % (Manual) Lymphocytes % (Manual) Monocytes % (Manual) Nucleated RBC % Seg Neutrophils # Seg Neutrophils # Man Lymphocytes # (Manual) Monocytes # (Manual) PT INR D-Dimer ABG pH POC ABG pCO2 POC ABG pO2 ABG pO2 ABG HCO3 ABG O2 Saturation ABG Base Excess ABG Hemoglobin ABG Oxyhemoglobin ABG Sodium ABG Potassium ABG Glucose Oxyhemoglobin Sodium 136 L Potassium 5.9 H Chloride Carbon Dioxide BUN 50 H Glucose 397 H POC Glucose 322 H 317 H Lactic Acid Phosphorus Magnesium Ferritin Lactate Dehydrogenase C-Reactive Protein NT-Pro-B Natriuret Pep Total Protein Albumin Triglycerides Arterial Blood Glucose Ur Specific [place] Coronavirus (PCR) 03/13/21 03/14/21 03/14/21 23:46 05:32 05:50 WBC 11.6 H RBC Hgb Hct MCHC RDW Lymph % (Auto) [place] % (Auto) [place] # (Auto) Seg Neutrophils % Seg Neuts % (Manual) Lymphocytes % (Manual) Monocytes % (Manual) Nucleated RBC % Seg Neutrophils # Seg Neutrophils # Man Lymphocytes # (Manual) Monocytes # (Manual) PT INR D-Dimer ABG pH POC ABG pCO2 POC ABG pO2 ABG pO2 ABG HCO3 ABG O2 Saturation ABG Base Excess ABG Hemoglobin ABG Oxyhemoglobin ABG Sodium ABG Potassium ABG Glucose Oxyhemoglobin Sodium Potassium Chloride Carbon Dioxide BUN Glucose POC Glucose 332 H 316 H Lactic Acid Phosphorus Magnesium Ferritin Lactate Dehydrogenase C-Reactive Protein NT-Pro-B Natriuret Pep Total Protein Albumin Triglycerides Arterial Blood Glucose Ur Specific [place] Coronavirus (PCR) 03/14/21 03/14/21 03/14/21 05:50 11:33 16:53 WBC RBC Hgb Hct MCHC RDW Lymph % (Auto) [place] % (Auto) [place] # (Auto) Seg Neutrophils % Seg Neuts % (Manual) Lymphocytes % (Manual) Monocytes % (Manual) Nucleated RBC % Seg Neutrophils # Seg Neutrophils # Man Lymphocytes # (Manual) Monocytes # (Manual) PT INR D-Dimer ABG pH POC ABG pCO2 POC ABG pO2 ABG pO2 ABG HCO3 ABG O2 Saturation ABG Base Excess ABG Hemoglobin ABG Oxyhemoglobin ABG Sodium ABG Potassium ABG Glucose Oxyhemoglobin Sodium Potassium 5.9 H Chloride Carbon Dioxide 31 H BUN 48 H Glucose 380 H POC Glucose 315 H 235 H Lactic Acid Phosphorus Magnesium 3.40 H Ferritin Lactate Dehydrogenase C-Reactive Protein NT-Pro-B Natriuret Pep Total Protein Albumin Triglycerides Arterial Blood Glucose Ur Specific [place] Coronavirus (PCR) 03/14/21 03/14/21 03/15/21 18:34 23:27 01:22 WBC RBC Hgb Hct 46.3 H MCHC RDW Lymph % (Auto) [place] % (Auto) [place] # (Auto) Seg Neutrophils % Seg Neuts % (Manual) Lymphocytes % (Manual) Monocytes % (Manual) Nucleated RBC % Seg Neutrophils # Seg Neutrophils # Man Lymphocytes # (Manual) Monocytes # (Manual) PT INR D-Dimer ABG pH POC ABG pCO2 POC ABG pO2 ABG pO2 ABG HCO3 ABG O2 Saturation ABG Base Excess ABG Hemoglobin ABG Oxyhemoglobin ABG Sodium ABG Potassium ABG Glucose Oxyhemoglobin Sodium 146 H Potassium Chloride Carbon Dioxide 34 H BUN 49 H Glucose 285 H POC Glucose 203 H Lactic Acid Phosphorus Magnesium Ferritin Lactate Dehydrogenase C-Reactive Protein NT-Pro-B Natriuret Pep Total Protein Albumin Triglycerides Arterial Blood Glucose Ur Specific [place] Coronavirus (PCR) 03/15/21 03/15/21 03/15/21 04:00 06:06 06:06 WBC RBC Hgb Hct MCHC RDW Lymph % (Auto) [place] % (Auto) [place] # (Auto) Seg Neutrophils % Seg Neuts % (Manual) Lymphocytes % (Manual) Monocytes % (Manual) Nucleated RBC % Seg Neutrophils # Seg Neutrophils # Man Lymphocytes # (Manual) Monocytes # (Manual) PT INR D-Dimer 1781.79 H ABG pH POC ABG pCO2 POC ABG pO2 ABG pO2 ABG HCO3 ABG O2 Saturation ABG Base Excess ABG Hemoglobin ABG Oxyhemoglobin ABG Sodium ABG Potassium ABG Glucose Oxyhemoglobin Sodium 148 H Potassium 5.7 H D Chloride 108.0 H Carbon Dioxide 31 H BUN 46 H Glucose 139 H POC Glucose Lactic Acid Phosphorus 4.80 H D Magnesium 3.00 H Ferritin 976.4 H Lactate Dehydrogenase 630 H C-Reactive Protein NT-Pro-B Natriuret Pep Total Protein Albumin Triglycerides Arterial Blood Glucose Ur Specific [place] Coronavirus (PCR) 03/15/21 03/15/21 03/15/21 11:56 14:05 17:09 WBC RBC Hgb Hct MCHC RDW Lymph % (Auto) [place] % (Auto) [place] # (Auto) Seg Neutrophils % Seg Neuts % (Manual) Lymphocytes % (Manual) Monocytes % (Manual) Nucleated RBC % Seg Neutrophils # Seg Neutrophils # Man Lymphocytes # (Manual) Monocytes # (Manual) PT INR D-Dimer ABG pH POC ABG pCO2 POC ABG pO2 ABG pO2 52.1 L ABG HCO3 36.6 H ABG O2 Saturation 87.6 L ABG Base Excess 9.5 H ABG Hemoglobin ABG Oxyhemoglobin ABG Sodium ABG Potassium ABG Glucose Oxyhemoglobin 85.7 L Sodium Potassium Chloride Carbon Dioxide BUN Glucose POC Glucose 219 H 263 H Lactic Acid Phosphorus Magnesium Ferritin Lactate Dehydrogenase C-Reactive Protein NT-Pro-B Natriuret Pep Total Protein Albumin Triglycerides Arterial Blood Glucose Ur Specific [place] Coronavirus (PCR) 03/16/21 03/16/21 03/16/21 00:32 04:11 04:11 WBC 11.9 H RBC Hgb Hct MCHC 30 L RDW Lymph % (Auto) [place] % (Auto) [place] # (Auto) Seg Neutrophils % Seg Neuts % (Manual) Lymphocytes % (Manual) Monocytes % (Manual) Nucleated RBC % Seg Neutrophils # Seg Neutrophils # Man Lymphocytes # (Manual) Monocytes # (Manual) PT INR D-Dimer ABG pH POC ABG pCO2 POC ABG pO2 ABG pO2 ABG HCO3 ABG O2 Saturation ABG Base Excess ABG Hemoglobin ABG Oxyhemoglobin ABG Sodium ABG Potassium ABG Glucose Oxyhemoglobin Sodium 151 H Potassium Chloride Carbon Dioxide 35 H BUN 48 H Glucose 152 H POC Glucose 165 H Lactic Acid Phosphorus Magnesium Ferritin Lactate Dehydrogenase C-Reactive Protein NT-Pro-B Natriuret Pep Total Protein Albumin Triglycerides Arterial Blood Glucose Ur Specific Maurice Coronavirus (PCR) 03/16/21 03/16/21 03/16/21 04:11 05:26 11:35 WBC RBC Hgb Hct MCHC RDW Lymph % (Auto) Walton % (Auto) Walton # (Auto) Seg Neutrophils % Seg Neuts % (Manual) Lymphocytes % (Manual) Monocytes % (Manual) Nucleated RBC % Seg Neutrophils # Seg Neutrophils # Man Lymphocytes # (Manual) Monocytes # (Manual) PT INR D-Dimer ABG pH POC ABG pCO2 POC ABG pO2 ABG pO2 ABG HCO3 ABG O2 Saturation ABG Base Excess ABG Hemoglobin ABG Oxyhemoglobin ABG Sodium ABG Potassium ABG Glucose Oxyhemoglobin Sodium Potassium Chloride Carbon Dioxide BUN Glucose POC Glucose 162 H 187 H Lactic Acid Phosphorus Magnesium Ferritin Lactate Dehydrogenase C-Reactive Protein NT-Pro-B Natriuret Pep Total Protein Albumin Triglycerides 267 H Arterial Blood Glucose Ur Specific Maurice Coronavirus (PCR) 03/16/21 03/16/21 03/16/21 17:29 22:25 23:22 WBC RBC Hgb Hct MCHC RDW Lymph % (Auto) Walton % (Auto) Walton # (Auto) Seg Neutrophils % Seg Neuts % (Manual) Lymphocytes % (Manual) Monocytes % (Manual) Nucleated RBC % Seg Neutrophils # Seg Neutrophils # Man Lymphocytes # (Manual) Monocytes # (Manual) PT INR D-Dimer ABG pH POC ABG pCO2 POC ABG pO2 ABG pO2 ABG HCO3 ABG O2 Saturation ABG Base Excess ABG Hemoglobin ABG Oxyhemoglobin ABG Sodium ABG Potassium ABG Glucose Oxyhemoglobin Sodium Potassium Chloride Carbon Dioxide BUN Glucose POC Glucose 237 H 165 H 189 H Lactic Acid Phosphorus Magnesium Ferritin Lactate Dehydrogenase C-Reactive Protein NT-Pro-B Natriuret Pep Total Protein Albumin Triglycerides Arterial Blood Glucose Ur Specific Maurice Coronavirus (PCR) 03/17/21 03/17/21 03/17/21 04:40 04:40 04:40 WBC 14.1 H RBC Hgb Hct MCHC RDW 15.3 H Lymph % (Auto) 12.6 L Walton % (Auto) 11.3 H Walton # (Auto) 1.6 H Seg Neutrophils % 74.9 H Seg Neuts % (Manual) Lymphocytes % (Manual) Monocytes % (Manual) Nucleated RBC % Seg Neutrophils # 10.5 H Seg Neutrophils # Man Lymphocytes # (Manual) Monocytes # (Manual) PT INR D-Dimer 1359.12 H ABG pH POC ABG pCO2 POC ABG pO2 ABG pO2 ABG HCO3 ABG O2 Saturation ABG Base Excess ABG Hemoglobin ABG Oxyhemoglobin ABG Sodium ABG Potassium ABG Glucose Oxyhemoglobin Sodium 148 H Potassium Chloride 107.5 H Carbon Dioxide 33 H BUN 42 H Glucose 183 H POC Glucose Lactic Acid Phosphorus Magnesium 2.70 H Ferritin Lactate Dehydrogenase C-Reactive Protein NT-Pro-B Natriuret Pep Total Protein Albumin Triglycerides Arterial Blood Glucose Ur Specific [place] Coronavirus (PCR) 03/17/21 03/17/21 03/17/21 05:53 11:05 11:51 WBC RBC Hgb Hct MCHC RDW Lymph % (Auto) Walton % (Auto) Walton # (Auto) Seg Neutrophils % Seg Neuts % (Manual) Lymphocytes % (Manual) Monocytes % (Manual) Nucleated RBC % Seg Neutrophils # Seg Neutrophils # Man Lymphocytes # (Manual) Monocytes # (Manual) PT INR D-Dimer ABG pH POC ABG pCO2 POC ABG pO2 ABG pO2 ABG HCO3 35.7 H ABG O2 Saturation ABG Base Excess 8.7 H ABG Hemoglobin ABG Oxyhemoglobin ABG Sodium ABG Potassium ABG Glucose Oxyhemoglobin 94.2 L Sodium Potassium Chloride Carbon Dioxide BUN Glucose POC Glucose 176 H 197 H Lactic Acid Phosphorus Magnesium Ferritin Lactate Dehydrogenase C-Reactive Protein NT-Pro-B Natriuret Pep Total Protein Albumin Triglycerides Arterial Blood Glucose Ur Specific Maurice Coronavirus (PCR) Allied health notes reviewed: RT
[2021-03-17] MEDS ORDERED: QUEtiapine 100 MG TAB PO SCH (13:00)
[2021-03-17] MEDS: QUEtiapine 100 MG TAB PO SCH ×2 (13:32→21:02)
[2021-03-17] MEDS: IPRATROPIUM/ALBUTEROL SULFATE 3 ML AMPUL.NEB IH SCH (20:00)
[2021-03-17] MEDS: ARFORMOTEROL 15 MCG/2 ML NEBU IH SCH (20:19)
[2021-03-17] MEDS: BUDESONIDE 0.25 MG/2 ML NEBU IH SCH (20:19)
[2021-03-18] MEDS: INSULIN LISPRO 100 UNIT/ML SUB-Q SCH ×4 (00:52→20:42)
[2021-03-18] MEDS: INSULIN REGULAR, HUMAN 100 UNITS/1 ML SUB-Q SCH ×4 (00:58→20:43)
--- NOTE | 2021-03-18 01:15 | XRay Report ---
CHEST 1 VIEW 03/18/2021 12:06 AM INDICATION / CLINICAL INFORMATION: COVID Pna. COMPARISON: 03/15/2021 FINDINGS: SUPPORT DEVICES: Stable, satisfactory device positioning. HEART / MEDIASTINUM: No significant abnormality. LUNGS / PLEURA: Diffuse bilateral pulmonary opacities No pneumothorax. ADDITIONAL FINDINGS: No significant additional findings. IMPRESSION: Diffuse bilateral pulmonary opacities Signer Name: Surendra Palmer MD Signed: 03/18/2021 1:11 AM Workstation Name: [employer]
[2021-03-18] MEDS: FREE WATER PO SCH ×2 (02:20→06:24)
[2021-03-18] MEDS: fentaNYL DRIP Premix 2,000 MCG/100 ML BAG IV SCH ×5 (04:20→23:59)
[2021-03-18 04:52] LABS: ABG Base Excess 9.4 mmol/L (-2.0-3.0); ABG HCO3 36.5 mmol/L (20.0-26.0); ABG Methemoglobin 0.6 % (0.0-1.5); ABG Oxygen Saturation 90.7 % (95.0-99.0); ABG PCO2 62.2 mm Hg; ABG PH 7.386 pH Units (7.350-7.450); ABG PO2 59.8 mm Hg (80.0-90.0)
[2021-03-18 05:45] LABS: Hematocrit 38.3 % (35.5-45.6); Hemoglobin 12.2 gm/dl (11.8-15.2); Mean Corpuscular HGB Conc 32 % (32-34); Mean Corpuscular Volume 94 fl (84-94); Platelet Count 313 K/mm3 (140-440); Red Blood Count 4.07 M/mm3 (3.65-5.03); Red Cell Distribution Width 14.9 % (13.2-15.2)
[2021-03-18 05:58] LABS: Blood Urea Nitrogen 38 mg/dL (9-20); Calcium 8.5 mg/dL (8.4-10.2); Hemolysis Index 16
[2021-03-18 05:59] LABS: BUN/Creatinine Ratio 54
--- NOTE | 2021-03-18 06:04 | Progress Note ---
Assessment and Plan Acute hypoxemic respiratory failure, on MVS COVID-19 infection Bilateral pneumonia Obesity BMI 36 Hypertension Leukocytosis Possible venous thromboembolic phenomena with significantly elevated D-dimers DM II Elevated serum inflammatory markers to include CRP levels, ferritin and LDH Hyperkalemia Antibiotics per ID- has continued Vancomycin and Cefepime Blood culture- NGTD, Tracheal aspirate GNR, awaiting identification of the species Continue Seroquel for agitation management, currently on 100mg BID Continue to monitor QTc while on Serpoquel and Propofol Daily assessment to wean, daily SAT and SBT - VAP bundle addressed, aspiration precautions - continue to titrate supplemental oxygen to keep SpO2 88-90% -Lung protective strategies - continue bronchodilators with pulmonary hygiene per RT - continue accuchecks with glycemic control per SSI (While critically ill target blood glucose of 140-180 mg/dL; avoid hypoglycemia) - avoid nephrotoxins, renally dose all medications - avoid benzodiazepines, reduce the possibility of delirium - sedation target for RASS -1 to -2 -On Propofol and Fentanyl - prn analgesia per pain score - Maintenance of sleep-wake cycle, avoid delirium - Stress ulcer prophylaxis -Therapeutic anticoagulation- on Enoxaparin - mobility, off loading and frequent turning per facility protocol for pressure ulcer prevention - Monitor hemodynamics closely - continue other care per attending / other consultants COVID SPECIFIC INTERVENTIONS - s/p Remdesivir per ID/Pulmonary developed protocols - complete systemic steroids for severe COVID-19 infection -Solumedrol - Continue to monitor inflammatory markers per facility protocol - ferritin, Ddimer, CRP - therapeutic anticoagulation per system Protocol based on d-dimer and clinical considerations -on therapeutic enoxaparin - Continue contact and airborne isolation per facility protocol CONDITION: CRITICAL PROGNOSIS: GUARDED CODE STATUS: FULL CODE The high probability of a clinically significant, sudden or life-threatening deterioration of the [respiratory, cardiovascular & hematologic] system(s) required my full and direct attention, intervention and personal management. The aggregate critical care time was [35] minutes without overlap. Time includes spent on; [x] Data Review and interpretation [x] Patient assessment and monitoring of vital signs [x] Documentation [x] Medication orders and management Subjective Date of service: 03/18/21 Principal diagnosis: COVID-19 infection; DM II; Bilateral pneumonia; Obesity; HTN Interval history: Patient is seen today for: Acute hypoxemic respiratory failure; COVID-19 infection; DM II; Bilateral pneumonia; Obesity; HTN Seen and examined at bedside; 24hour events reviewed; nursing and respiratory care staff consulted; no adverse overnight events reported to me; resting in bed; on MVS PEEP +8, FIO2 50%; no emesis or overt aspiration; On Propofol and Fentanyl. On going intermittent fevers Objective Vital Signs - 12hr 03/17/21 03/17/21 03/17/21 18:30 19:01 19:31 Temperature Pulse Rate 88 108 H 118 H Pulse Rate [ From Monitor] Respiratory 25 H 16 21 Rate Blood Pressure 86/52 86/52 181/103 O2 Sat by Pulse 93 97 89 Oximetry 03/17/21 03/17/21 03/17/21 20:00 20:01 20:31 Temperature 98.4 F Pulse Rate 120 H 119 H 125 H Pulse Rate [ 104 H From Monitor] Respiratory 25 H 19 21 Rate Blood Pressure 180/88 117/68 O2 Sat by Pulse 92 89 94 Oximetry 03/17/21 03/17/21 03/17/21 21:00 21:30 22:00 Temperature Pulse Rate 105 H 101 H 97 H Pulse Rate [ From Monitor] Respiratory 25 H 25 H 25 H Rate Blood Pressure 103/58 93/57 95/56 O2 Sat by Pulse 93 93 94 Oximetry 03/17/21 03/17/21 03/17/21 22:04 22:30 23:00 Temperature Pulse Rate 95 H 108 H 98 H Pulse Rate [ From Monitor] Respiratory 24 23 Rate Blood Pressure 95/56 119/69 93/56 O2 Sat by Pulse 93 93 90 Oximetry 03/17/21 03/17/21 03/18/21 23:30 23:33 00:00 Temperature 98.7 F Pulse Rate 96 H 96 H 94 H Pulse Rate [ 104 H From Monitor] Respiratory 23 24 25 H Rate Blood Pressure 101/53 101/53 100/52 O2 Sat by Pulse 93 91 93 Oximetry 03/18/21 03/18/21 03/18/21 00:30 01:00 01:31 Temperature Pulse Rate 93 H 93 H 108 H Pulse Rate [ From Monitor] Respiratory 25 H 25 H 14 Rate Blood Pressure 101/54 96/52 165/105 O2 Sat by Pulse 96 95 100 Oximetry 03/18/21 03/18/21 03/18/21 01:34 02:01 02:31 Temperature Pulse Rate 106 H 114 H 99 H Pulse Rate [ From Monitor] Respiratory 15 23 Rate Blood Pressure 165/105 193/103 103/63 O2 Sat by Pulse 100 86 Oximetry 03/18/21 03/18/21 03/18/21 03:00 03:30 04:00 Temperature 98.8 F Pulse Rate 98 H 99 H 96 H Pulse Rate [ 104 H From Monitor] Respiratory 25 H 24 25 H Rate Blood Pressure 101/54 90/55 96/57 O2 Sat by Pulse 91 92 90 Oximetry 03/18/21 03/18/21 03/18/21 04:30 05:00 05:30 Temperature Pulse Rate 93 H 94 H 93 H Pulse Rate [ From Monitor] Respiratory 22 25 H 25 H Rate Blood Pressure 102/62 101/61 98/58 O2 Sat by Pulse 90 93 93 Oximetry Constitutional: no acute distress, other (resting peacefully in bed) Eyes: non-icteric ENT: oropharynx moist, other (ETT 24 cm CHAITANYA) Neck: supple, no lymphadenopathy, no JVD, other (large circumference) Effort: normal Ascultation: Bilateral: diminished breath sounds, rhonchi Percussion: Bilateral: not dull Cardiovascular: regular rate and rhythm, other (tachycardia, S1,S2) Gastrointestinal: normoactive bowel sounds Integumentary: normal Extremities: no cyanosis, pulses normal, no ischemia or petechiae, edema Neurologic: pupils equal and round, unable to assess, other (sedated) Psychiatric: other (unable to assess re: AMS) CBC and BMP: 03/20/21 04:45 03/20/21 04:45 ABG, PT/INR, D-dimer: ABG ABG pH 7.386 pH Units (7.350-7.450) 03/18/21 04:18 POC ABG pCO2 71.9 mmHg (32.0-48.0) H 03/12/21 21:54 ABG pCO2 62.2 mm Hg 03/18/21 04:18 POC ABG pO2 53.6 mmHg (83-108) L 03/12/21 21:54 ABG pO2 59.8 mm Hg (80.0-90.0) L 03/18/21 04:18 POC ABG HCO3 30.0 03/12/21 21:54 ABG O2 Saturation 90.7 % (95.0-99.0) L 03/18/21 04:18 PT/INR, D-dimer PT 16.1 Sec. (12.2-14.9) H 03/08/21 20:24 INR 1.17 (0.87-1.13) H 03/08/21 20:24 D-Dimer 1359.12 ng/mlDDU (0-234) H 03/17/21 04:40 Abnormal lab findings: Abnormal Labs 03/08/21 03/08/21 03/08/21 20:24 20:24 20:24 WBC 22.6 H RBC 5.44 H Hgb 15.7 H Hct 49.2 H MCHC RDW Lymph % (Auto) [facility] % (Auto) [facility] # (Auto) Seg Neutrophils % Seg Neuts % (Manual) 83.0 H Lymphocytes % (Manual) 9.0 L Monocytes % (Manual) 8.0 H Nucleated RBC % Seg Neutrophils # Seg Neutrophils # Man 18.8 H Lymphocytes # (Manual) Monocytes # (Manual) 1.8 H PT 16.1 H INR 1.17 H D-Dimer > 28658 H ABG pH POC ABG pCO2 POC ABG pO2 ABG pO2 ABG HCO3 ABG O2 Saturation ABG Base Excess ABG Hemoglobin ABG Oxyhemoglobin ABG Sodium ABG Potassium ABG Glucose Oxyhemoglobin Sodium 136 L Potassium Chloride 93.9 L Carbon Dioxide BUN 29 H Creatinine Glucose 208 H POC Glucose Lactic Acid Phosphorus Magnesium Ferritin Lactate Dehydrogenase 624 H C-Reactive Protein 18.00 H NT-Pro-B Natriuret Pep 1053 H Total Protein Albumin Triglycerides Arterial Blood Glucose Ur Specific [place] Coronavirus (PCR) 03/08/21 03/08/21 03/09/21 20:24 20:24 04:10 WBC RBC Hgb Hct MCHC RDW Lymph % (Auto) [facility] % (Auto) [facility] # (Auto) Seg Neutrophils % Seg Neuts % (Manual) Lymphocytes % (Manual) Monocytes % (Manual) Nucleated RBC % Seg Neutrophils # Seg Neutrophils # Man Lymphocytes # (Manual) Monocytes # (Manual) PT INR D-Dimer ABG pH POC ABG pCO2 POC ABG pO2 ABG pO2 ABG HCO3 ABG O2 Saturation ABG Base Excess ABG Hemoglobin ABG Oxyhemoglobin ABG Sodium ABG Potassium ABG Glucose Oxyhemoglobin Sodium Potassium Chloride Carbon Dioxide BUN Creatinine Glucose POC Glucose Lactic Acid 2.10 H* Phosphorus Magnesium Ferritin 877.5 H Lactate Dehydrogenase C-Reactive Protein NT-Pro-B Natriuret Pep Total Protein Albumin Triglycerides Arterial Blood Glucose Ur Specific [place] 1.041 H Coronavirus (PCR) 03/09/21 03/09/21 03/09/21 07:46 08:00 13:01 WBC RBC Hgb Hct MCHC RDW Lymph % (Auto) [facility] % (Auto) [facility] # (Auto) Seg Neutrophils % Seg Neuts % (Manual) Lymphocytes % (Manual) Monocytes % (Manual) Nucleated RBC % Seg Neutrophils # Seg Neutrophils # Man Lymphocytes # (Manual) Monocytes # (Manual) PT INR D-Dimer ABG pH POC ABG pCO2 POC ABG pO2 ABG pO2 ABG HCO3 ABG O2 Saturation ABG Base Excess ABG Hemoglobin ABG Oxyhemoglobin ABG Sodium ABG Potassium ABG Glucose Oxyhemoglobin Sodium Potassium Chloride Carbon Dioxide BUN Creatinine Glucose POC Glucose 191 H 182 H Lactic Acid Phosphorus Magnesium Ferritin Lactate Dehydrogenase C-Reactive Protein NT-Pro-B Natriuret Pep Total Protein Albumin Triglycerides Arterial Blood Glucose Ur Specific [place] Coronavirus (PCR) Positive A 03/09/21 03/09/21 03/09/21 15:19 17:48 18:10 WBC RBC Hgb Hct MCHC RDW Lymph % (Auto) [facility] % (Auto) [facility] # (Auto) Seg Neutrophils % Seg Neuts % (Manual) Lymphocytes % (Manual) Monocytes % (Manual) Nucleated RBC % Seg Neutrophils # Seg Neutrophils # Man Lymphocytes # (Manual) Monocytes # (Manual) PT INR D-Dimer ABG pH POC ABG pCO2 POC ABG pO2 ABG pO2 47.3 L ABG HCO3 26.3 H ABG O2 Saturation 83.7 L ABG Base Excess ABG Hemoglobin ABG Oxyhemoglobin ABG Sodium ABG Potassium ABG Glucose Oxyhemoglobin 82.1 L Sodium Potassium Chloride Carbon Dioxide BUN 29 H Creatinine Glucose 214 H POC Glucose 194 H Lactic Acid Phosphorus Magnesium Ferritin Lactate Dehydrogenase C-Reactive Protein NT-Pro-B Natriuret Pep Total Protein Albumin 3.4 L Triglycerides Arterial Blood Glucose Ur Specific [place] Coronavirus (PCR) 03/09/21 03/10/21 03/10/21 20:40 04:29 04:29 WBC 20.6 H RBC 5.07 H Hgb Hct 46.2 H MCHC RDW Lymph % (Auto) [facility] % (Auto) [facility] # (Auto) Seg Neutrophils % Seg Neuts % (Manual) 94.0 H Lymphocytes % (Manual) 1.0 L Monocytes % (Manual) Nucleated RBC % 3.0 H Seg Neutrophils # Seg Neutrophils # Man 19.4 H Lymphocytes # (Manual) 0.2 L Monocytes # (Manual) 1.0 H PT INR D-Dimer ABG pH POC ABG pCO2 POC ABG pO2 ABG pO2 ABG HCO3 ABG O2 Saturation ABG Base Excess ABG Hemoglobin ABG Oxyhemoglobin ABG Sodium ABG Potassium ABG Glucose Oxyhemoglobin Sodium Potassium Chloride Carbon Dioxide BUN 29 H Creatinine Glucose 188 H POC Glucose 176 H Lactic Acid Phosphorus Magnesium Ferritin Lactate Dehydrogenase C-Reactive Protein NT-Pro-B Natriuret Pep Total Protein Albumin 3.3 L Triglycerides Arterial Blood Glucose Ur Specific [place] Coronavirus (PCR) 03/10/21 03/10/21 03/10/21 05:22 10:27 15:25 WBC RBC Hgb Hct MCHC RDW Lymph % (Auto) [facility] % (Auto) [facility] # (Auto) Seg Neutrophils % Seg Neuts % (Manual) Lymphocytes % (Manual) Monocytes % (Manual) Nucleated RBC % Seg Neutrophils # Seg Neutrophils # Man Lymphocytes # (Manual) Monocytes # (Manual) PT INR D-Dimer ABG pH 7.488 H 7.488 H POC ABG pCO2 POC ABG pO2 ABG pO2 47.7 L 50.5 L ABG HCO3 ABG O2 Saturation 86.2 L 87.9 L ABG Base Excess ABG Hemoglobin ABG Oxyhemoglobin ABG Sodium ABG Potassium ABG Glucose Oxyhemoglobin 84.6 L 86.2 L Sodium Potassium Chloride Carbon Dioxide BUN Creatinine Glucose POC Glucose 155 H Lactic Acid Phosphorus Magnesium Ferritin Lactate Dehydrogenase C-Reactive Protein NT-Pro-B Natriuret Pep Total Protein Albumin Triglycerides Arterial Blood Glucose Ur Specific [place] Coronavirus (PCR) 03/10/21 03/10/21 03/11/21 18:10 18:55 00:07 WBC RBC Hgb Hct MCHC RDW Lymph % (Auto) [facility] % (Auto) [facility] # (Auto) Seg Neutrophils % Seg Neuts % (Manual) Lymphocytes % (Manual) Monocytes % (Manual) Nucleated RBC % Seg Neutrophils # Seg Neutrophils # Man Lymphocytes # (Manual) Monocytes # (Manual) PT INR D-Dimer ABG pH 7.343 L POC ABG pCO2 POC ABG pO2 ABG pO2 60.4 L ABG HCO3 27.9 H ABG O2 Saturation 88.7 L ABG Base Excess ABG Hemoglobin ABG Oxyhemoglobin ABG Sodium ABG Potassium ABG Glucose Oxyhemoglobin 86.9 L Sodium Potassium Chloride Carbon Dioxide BUN Creatinine Glucose POC Glucose 187 H 139 H Lactic Acid Phosphorus Magnesium Ferritin Lactate Dehydrogenase C-Reactive Protein NT-Pro-B Natriuret Pep Total Protein Albumin Triglycerides Arterial Blood Glucose Ur Specific [place] Coronavirus (PCR) 03/11/21 03/11/21 03/11/21 02:09 04:28 08:06 WBC RBC Hgb Hct MCHC RDW Lymph % (Auto) [facility] % (Auto) [facility] # (Auto) Seg Neutrophils % Seg Neuts % (Manual) Lymphocytes % (Manual) Monocytes % (Manual) Nucleated RBC % Seg Neutrophils # Seg Neutrophils # Man Lymphocytes # (Manual) Monocytes # (Manual) PT INR D-Dimer ABG pH 7.277 L POC ABG pCO2 55.9 H POC ABG pO2 54.4 L ABG pO2 ABG HCO3 ABG O2 Saturation ABG Base Excess ABG Hemoglobin ABG Oxyhemoglobin 83.0 L ABG Sodium ABG Potassium 4.8 H ABG Glucose 180 H Oxyhemoglobin Sodium Potassium Chloride Carbon Dioxide BUN 38 H Creatinine Glucose 249 H POC Glucose 278 H Lactic Acid Phosphorus Magnesium Ferritin Lactate Dehydrogenase C-Reactive Protein NT-Pro-B Natriuret Pep Total Protein Albumin 3.2 L Triglycerides Arterial Blood Glucose 180 H Ur Specific [place] Coronavirus (PCR) 03/11/21 03/11/21 03/11/21 11:29 15:06 15:48 WBC RBC Hgb Hct MCHC RDW Lymph % (Auto) [facility] % (Auto) [facility] # (Auto) Seg Neutrophils % Seg Neuts % (Manual) Lymphocytes % (Manual) Monocytes % (Manual) Nucleated RBC % Seg Neutrophils # Seg Neutrophils # Man Lymphocytes # (Manual) Monocytes # (Manual) PT INR D-Dimer ABG pH 7.260 L POC ABG pCO2 POC ABG pO2 ABG pO2 53.5 L ABG HCO3 29.5 H ABG O2 Saturation 84.0 L ABG Base Excess ABG Hemoglobin ABG Oxyhemoglobin ABG Sodium ABG Potassium ABG Glucose Oxyhemoglobin 82.3 L Sodium Potassium Chloride Carbon Dioxide BUN Creatinine Glucose POC Glucose 288 H 295 H Lactic Acid Phosphorus Magnesium Ferritin Lactate Dehydrogenase C-Reactive Protein NT-Pro-B Natriuret Pep Total Protein Albumin Triglycerides Arterial Blood Glucose Ur Specific [place] Coronavirus (PCR) 03/12/21 03/12/21 03/12/21 00:01 05:24 08:03 WBC RBC Hgb Hct MCHC RDW Lymph % (Auto) [facility] % (Auto) [facility] # (Auto) Seg Neutrophils % Seg Neuts % (Manual) Lymphocytes % (Manual) Monocytes % (Manual) Nucleated RBC % Seg Neutrophils # Seg Neutrophils # Man Lymphocytes # (Manual) Monocytes # (Manual) PT INR D-Dimer ABG pH POC ABG pCO2 POC ABG pO2 ABG pO2 ABG HCO3 ABG O2 Saturation ABG Base Excess ABG Hemoglobin ABG Oxyhemoglobin ABG Sodium ABG Potassium ABG Glucose Oxyhemoglobin Sodium 135 L Potassium Chloride Carbon Dioxide BUN 48 H Creatinine Glucose 358 H POC Glucose 304 H 310 H Lactic Acid Phosphorus Magnesium Ferritin Lactate Dehydrogenase C-Reactive Protein NT-Pro-B Natriuret Pep Total Protein 6.0 L Albumin 2.9 L Triglycerides Arterial Blood Glucose Ur Specific [place] Coronavirus (PCR) 03/12/21 03/12/21 03/12/21 08:03 10:43 11:31 WBC 14.6 H RBC Hgb Hct MCHC RDW Lymph % (Auto) [facility] % (Auto) [facility] # (Auto) Seg Neutrophils % Seg Neuts % (Manual) Lymphocytes % (Manual) Monocytes % (Manual) Nucleated RBC % Seg Neutrophils # Seg Neutrophils # Man Lymphocytes # (Manual) Monocytes # (Manual) PT INR D-Dimer ABG pH 7.248 L POC ABG pCO2 POC ABG pO2 ABG pO2 73.7 L ABG HCO3 32.0 H ABG O2 Saturation 93.9 L ABG Base Excess ABG Hemoglobin ABG Oxyhemoglobin ABG Sodium ABG Potassium ABG Glucose Oxyhemoglobin 92.1 L Sodium Potassium Chloride Carbon Dioxide BUN Creatinine Glucose POC Glucose 359 H Lactic Acid Phosphorus Magnesium Ferritin Lactate Dehydrogenase C-Reactive Protein NT-Pro-B Natriuret Pep Total Protein Albumin Triglycerides Arterial Blood Glucose Ur Specific [place] Coronavirus (PCR) 03/12/21 03/12/21 03/13/21 17:20 21:54 00:02 WBC RBC Hgb Hct MCHC RDW Lymph % (Auto) [facility] % (Auto) [facility] # (Auto) Seg Neutrophils % Seg Neuts % (Manual) Lymphocytes % (Manual) Monocytes % (Manual) Nucleated RBC % Seg Neutrophils # Seg Neutrophils # Man Lymphocytes # (Manual) Monocytes # (Manual) PT INR D-Dimer ABG pH 7.238 L POC ABG pCO2 71.9 H POC ABG pO2 53.6 L ABG pO2 ABG HCO3 ABG O2 Saturation ABG Base Excess ABG Hemoglobin ABG Oxyhemoglobin 84.8 L ABG Sodium 134.2 L ABG Potassium 4.9 H ABG Glucose 306 H Oxyhemoglobin Sodium Potassium Chloride Carbon Dioxide BUN Creatinine Glucose POC Glucose 374 H 308 H Lactic Acid Phosphorus Magnesium Ferritin Lactate Dehydrogenase C-Reactive Protein NT-Pro-B Natriuret Pep Total Protein Albumin Triglycerides Arterial Blood Glucose 306 H Ur Specific [place] Coronavirus (PCR) 03/13/21 03/13/21 03/13/21 05:22 05:44 05:44 WBC 13.9 H RBC Hgb Hct MCHC RDW Lymph % (Auto) [facility] % (Auto) [facility] # (Auto) Seg Neutrophils % Seg Neuts % (Manual) Lymphocytes % (Manual) Monocytes % (Manual) Nucleated RBC % Seg Neutrophils # Seg Neutrophils # Man Lymphocytes # (Manual) Monocytes # (Manual) PT INR D-Dimer 3567.97 H ABG pH POC ABG pCO2 POC ABG pO2 ABG pO2 ABG HCO3 ABG O2 Saturation ABG Base Excess ABG Hemoglobin ABG Oxyhemoglobin ABG Sodium ABG Potassium ABG Glucose Oxyhemoglobin Sodium Potassium Chloride Carbon Dioxide BUN Creatinine Glucose POC Glucose 316 H Lactic Acid Phosphorus Magnesium Ferritin Lactate Dehydrogenase C-Reactive Protein NT-Pro-B Natriuret Pep Total Protein Albumin Triglycerides Arterial Blood Glucose Ur Specific [place] Coronavirus (PCR) 03/13/21 03/13/21 03/13/21 05:44 05:44 11:15 WBC RBC Hgb Hct MCHC RDW Lymph % (Auto) [facility] % (Auto) [facility] # (Auto) Seg Neutrophils % Seg Neuts % (Manual) Lymphocytes % (Manual) Monocytes % (Manual) Nucleated RBC % Seg Neutrophils # Seg Neutrophils # Man Lymphocytes # (Manual) Monocytes # (Manual) PT INR D-Dimer ABG pH 7.310 L POC ABG pCO2 POC ABG pO2 ABG pO2 52.3 L ABG HCO3 34.1 H ABG O2 Saturation 86.8 L ABG Base Excess 5.5 H ABG Hemoglobin 13.8 L ABG Oxyhemoglobin ABG Sodium ABG Potassium ABG Glucose Oxyhemoglobin 85.1 L Sodium Potassium Chloride Carbon Dioxide BUN Creatinine Glucose POC Glucose Lactic Acid Phosphorus Magnesium Ferritin 858.7 H Lactate Dehydrogenase 348 H C-Reactive Protein 2.80 H NT-Pro-B Natriuret Pep Total Protein Albumin Triglycerides Arterial Blood Glucose Ur Specific [place] Coronavirus (PCR) 03/13/21 03/13/21 03/13/21 11:21 15:47 19:23 WBC RBC Hgb Hct MCHC RDW Lymph % (Auto) [facility] % (Auto) [facility] # (Auto) Seg Neutrophils % Seg Neuts % (Manual) Lymphocytes % (Manual) Monocytes % (Manual) Nucleated RBC % Seg Neutrophils # Seg Neutrophils # Man Lymphocytes # (Manual) Monocytes # (Manual) PT INR D-Dimer ABG pH POC ABG pCO2 POC ABG pO2 ABG pO2 ABG HCO3 ABG O2 Saturation ABG Base Excess ABG Hemoglobin ABG Oxyhemoglobin ABG Sodium ABG Potassium ABG Glucose Oxyhemoglobin Sodium 136 L Potassium 5.9 H Chloride Carbon Dioxide BUN 50 H Creatinine Glucose 397 H POC Glucose 322 H 317 H Lactic Acid Phosphorus Magnesium Ferritin Lactate Dehydrogenase C-Reactive Protein NT-Pro-B Natriuret Pep Total Protein Albumin Triglycerides Arterial Blood Glucose Ur Specific [place] Coronavirus (PCR) 03/13/21 03/14/21 03/14/21 23:46 05:32 05:50 WBC 11.6 H RBC Hgb Hct MCHC RDW Lymph % (Auto) [facility] % (Auto) [facility] # (Auto) Seg Neutrophils % Seg Neuts % (Manual) Lymphocytes % (Manual) Monocytes % (Manual) Nucleated RBC % Seg Neutrophils # Seg Neutrophils # Man Lymphocytes # (Manual) Monocytes # (Manual) PT INR D-Dimer ABG pH POC ABG pCO2 POC ABG pO2 ABG pO2 ABG HCO3 ABG O2 Saturation ABG Base Excess ABG Hemoglobin ABG Oxyhemoglobin ABG Sodium ABG Potassium ABG Glucose Oxyhemoglobin Sodium Potassium Chloride Carbon Dioxide BUN Creatinine Glucose POC Glucose 332 H 316 H Lactic Acid Phosphorus Magnesium Ferritin Lactate Dehydrogenase C-Reactive Protein NT-Pro-B Natriuret Pep Total Protein Albumin Triglycerides Arterial Blood Glucose Ur Specific [place] Coronavirus (PCR) 03/14/21 03/14/21 03/14/21 05:50 11:33 16:53 WBC RBC Hgb Hct MCHC RDW Lymph % (Auto) [facility] % (Auto) [facility] # (Auto) Seg Neutrophils % Seg Neuts % (Manual) Lymphocytes % (Manual) Monocytes % (Manual) Nucleated RBC % Seg Neutrophils # Seg Neutrophils # Man Lymphocytes # (Manual) Monocytes # (Manual) PT INR D-Dimer ABG pH POC ABG pCO2 POC ABG pO2 ABG pO2 ABG HCO3 ABG O2 Saturation ABG Base Excess ABG Hemoglobin ABG Oxyhemoglobin ABG Sodium ABG Potassium ABG Glucose Oxyhemoglobin Sodium Potassium 5.9 H Chloride Carbon Dioxide 31 H BUN 48 H Creatinine Glucose 380 H POC Glucose 315 H 235 H Lactic Acid Phosphorus Magnesium 3.40 H Ferritin Lactate Dehydrogenase C-Reactive Protein NT-Pro-B Natriuret Pep Total Protein Albumin Triglycerides Arterial Blood Glucose Ur Specific [place] Coronavirus (PCR) 03/14/21 03/14/21 03/15/21 18:34 23:27 01:22 WBC RBC Hgb Hct 46.3 H MCHC RDW Lymph % (Auto) [facility] % (Auto) [facility] # (Auto) Seg Neutrophils % Seg Neuts % (Manual) Lymphocytes % (Manual) Monocytes % (Manual) Nucleated RBC % Seg Neutrophils # Seg Neutrophils # Man Lymphocytes # (Manual) Monocytes # (Manual) PT INR D-Dimer ABG pH POC ABG pCO2 POC ABG pO2 ABG pO2 ABG HCO3 ABG O2 Saturation ABG Base Excess ABG Hemoglobin ABG Oxyhemoglobin ABG Sodium ABG Potassium ABG Glucose Oxyhemoglobin Sodium 146 H Potassium Chloride Carbon Dioxide 34 H BUN 49 H Creatinine Glucose 285 H POC Glucose 203 H Lactic Acid Phosphorus Magnesium Ferritin Lactate Dehydrogenase C-Reactive Protein NT-Pro-B Natriuret Pep Total Protein Albumin Triglycerides Arterial Blood Glucose Ur Specific [place] Coronavirus (PCR) 03/15/21 03/15/21 03/15/21 04:00 06:06 06:06 WBC RBC Hgb Hct MCHC RDW Lymph % (Auto) [facility] % (Auto) [facility] # (Auto) Seg Neutrophils % Seg Neuts % (Manual) Lymphocytes % (Manual) Monocytes % (Manual) Nucleated RBC % Seg Neutrophils # Seg Neutrophils # Man Lymphocytes # (Manual) Monocytes # (Manual) PT INR D-Dimer 1781.79 H ABG pH POC ABG pCO2 POC ABG pO2 ABG pO2 ABG HCO3 ABG O2 Saturation ABG Base Excess ABG Hemoglobin ABG Oxyhemoglobin ABG Sodium ABG Potassium ABG Glucose Oxyhemoglobin Sodium 148 H Potassium 5.7 H D Chloride 108.0 H Carbon Dioxide 31 H BUN 46 H Creatinine Glucose 139 H POC Glucose Lactic Acid Phosphorus 4.80 H D Magnesium 3.00 H Ferritin 976.4 H Lactate Dehydrogenase 630 H C-Reactive Protein NT-Pro-B Natriuret Pep Total Protein Albumin Triglycerides Arterial Blood Glucose Ur Specific [place] Coronavirus (PCR) 03/15/21 03/15/21 03/15/21 11:56 14:05 17:09 WBC RBC Hgb Hct MCHC RDW Lymph % (Auto) [facility] % (Auto) [facility] # (Auto) Seg Neutrophils % Seg Neuts % (Manual) Lymphocytes % (Manual) Monocytes % (Manual) Nucleated RBC % Seg Neutrophils # Seg Neutrophils # Man Lymphocytes # (Manual) Monocytes # (Manual) PT INR D-Dimer ABG pH POC ABG pCO2 POC ABG pO2 ABG pO2 52.1 L ABG HCO3 36.6 H ABG O2 Saturation 87.6 L ABG Base Excess 9.5 H ABG Hemoglobin ABG Oxyhemoglobin ABG Sodium ABG Potassium ABG Glucose Oxyhemoglobin 85.7 L Sodium Potassium Chloride Carbon Dioxide BUN Creatinine Glucose POC Glucose 219 H 263 H Lactic Acid Phosphorus Magnesium Ferritin Lactate Dehydrogenase C-Reactive Protein NT-Pro-B Natriuret Pep Total Protein Albumin Triglycerides Arterial Blood Glucose Ur Specific [place] Coronavirus (PCR) 03/16/21 03/16/21 03/16/21 00:32 04:11 04:11 WBC 11.9 H RBC Hgb Hct MCHC 30 L RDW Lymph % (Auto) [facility] % (Auto) [facility] # (Auto) Seg Neutrophils % Seg Neuts % (Manual) Lymphocytes % (Manual) Monocytes % (Manual) Nucleated RBC % Seg Neutrophils # Seg Neutrophils # Man Lymphocytes # (Manual) Monocytes # (Manual) PT INR D-Dimer ABG pH POC ABG pCO2 POC ABG pO2 ABG pO2 ABG HCO3 ABG O2 Saturation ABG Base Excess ABG Hemoglobin ABG Oxyhemoglobin ABG Sodium ABG Potassium ABG Glucose Oxyhemoglobin Sodium 151 H Potassium Chloride Carbon Dioxide 35 H BUN 48 H Creatinine Glucose 152 H POC Glucose 165 H Lactic Acid Phosphorus Magnesium Ferritin Lactate Dehydrogenase C-Reactive Protein NT-Pro-B Natriuret Pep Total Protein Albumin Triglycerides Arterial Blood Glucose Ur Specific [place] Coronavirus (PCR) 03/16/21 03/16/21 03/16/21 04:11 05:26 11:35 WBC RBC Hgb Hct MCHC RDW Lymph % (Auto) [facility] % (Auto) [facility] # (Auto) Seg Neutrophils % Seg Neuts % (Manual) Lymphocytes % (Manual) Monocytes % (Manual) Nucleated RBC % Seg Neutrophils # Seg Neutrophils # Man Lymphocytes # (Manual) Monocytes # (Manual) PT INR D-Dimer ABG pH POC ABG pCO2 POC ABG pO2 ABG pO2 ABG HCO3 ABG O2 Saturation ABG Base Excess ABG Hemoglobin ABG Oxyhemoglobin ABG Sodium ABG Potassium ABG Glucose Oxyhemoglobin Sodium Potassium Chloride Carbon Dioxide BUN Creatinine Glucose POC Glucose 162 H 187 H Lactic Acid Phosphorus Magnesium Ferritin Lactate Dehydrogenase C-Reactive Protein NT-Pro-B Natriuret Pep Total Protein Albumin Triglycerides 267 H Arterial Blood Glucose Ur Specific [place] Coronavirus (PCR) 03/16/21 03/16/21 03/16/21 17:29 22:25 23:22 WBC RBC Hgb Hct MCHC RDW Lymph % (Auto) [facility] % (Auto) [facility] # (Auto) Seg Neutrophils % Seg Neuts % (Manual) Lymphocytes % (Manual) Monocytes % (Manual) Nucleated RBC % Seg Neutrophils # Seg Neutrophils # Man Lymphocytes # (Manual) Monocytes # (Manual) PT INR D-Dimer ABG pH POC ABG pCO2 POC ABG pO2 ABG pO2 ABG HCO3 ABG O2 Saturation ABG Base Excess ABG Hemoglobin ABG Oxyhemoglobin ABG Sodium ABG Potassium ABG Glucose Oxyhemoglobin Sodium Potassium Chloride Carbon Dioxide BUN Creatinine Glucose POC Glucose 237 H 165 H 189 H Lactic Acid Phosphorus Magnesium Ferritin Lactate Dehydrogenase C-Reactive Protein NT-Pro-B Natriuret Pep Total Protein Albumin Triglycerides Arterial Blood Glucose Ur Specific [place] Coronavirus (PCR) 03/17/21 03/17/21 03/17/21 04:40 04:40 04:40 WBC 14.1 H RBC Hgb Hct MCHC RDW 15.3 H Lymph % (Auto) 12.[address] [facility] % (Auto) 11.[address] [facility] # (Auto) 1.6 H Seg Neutrophils % 74.9 H Seg Neuts % (Manual) Lymphocytes % (Manual) Monocytes % (Manual) Nucleated RBC % Seg Neutrophils # 10.5 H Seg Neutrophils # Man Lymphocytes # (Manual) Monocytes # (Manual) PT INR D-Dimer 1359.12 H ABG pH POC ABG pCO2 POC ABG pO2 ABG pO2 ABG HCO3 ABG O2 Saturation ABG Base Excess ABG Hemoglobin ABG Oxyhemoglobin ABG Sodium ABG Potassium ABG Glucose Oxyhemoglobin Sodium 148 H Potassium Chloride 107.5 H Carbon Dioxide 33 H BUN 42 H Creatinine Glucose 183 H POC Glucose Lactic Acid Phosphorus Magnesium 2.70 H Ferritin Lactate Dehydrogenase C-Reactive Protein NT-Pro-B Natriuret Pep Total Protein Albumin Triglycerides Arterial Blood Glucose Ur Specific [place] Coronavirus (PCR) 03/17/21 03/17/21 03/17/21 05:53 11:05 11:51 WBC RBC Hgb Hct MCHC RDW Lymph % (Auto) [facility] % (Auto) [facility] # (Auto) Seg Neutrophils % Seg Neuts % (Manual) Lymphocytes % (Manual) Monocytes % (Manual) Nucleated RBC % Seg Neutrophils # Seg Neutrophils # Man Lymphocytes # (Manual) Monocytes # (Manual) PT INR D-Dimer ABG pH POC ABG pCO2 POC ABG pO2 ABG pO2 ABG HCO3 35.7 H ABG O2 Saturation ABG Base Excess 8.7 H ABG Hemoglobin ABG Oxyhemoglobin ABG Sodium ABG Potassium ABG Glucose Oxyhemoglobin 94.2 L Sodium Potassium Chloride Carbon Dioxide BUN Creatinine Glucose POC Glucose 176 H 197 H Lactic Acid Phosphorus Magnesium Ferritin Lactate Dehydrogenase C-Reactive Protein NT-Pro-B Natriuret Pep Total Protein Albumin Triglycerides Arterial Blood Glucose Ur Specific [place] Coronavirus (PCR) 03/17/21 03/17/21 03/17/21 16:54 21:10 23:33 WBC RBC Hgb Hct MCHC RDW Lymph % (Auto) [facility] % (Auto) [facility] # (Auto) Seg Neutrophils % Seg Neuts % (Manual) Lymphocytes % (Manual) Monocytes % (Manual) Nucleated RBC % Seg Neutrophils # Seg Neutrophils # Man Lymphocytes # (Manual) Monocytes # (Manual) PT INR D-Dimer ABG pH POC ABG pCO2 POC ABG pO2 ABG pO2 ABG HCO3 ABG O2 Saturation ABG Base Excess ABG Hemoglobin ABG Oxyhemoglobin ABG Sodium ABG Potassium ABG Glucose Oxyhemoglobin Sodium Potassium Chloride Carbon Dioxide BUN Creatinine Glucose POC Glucose 135 H 160 H 138 H Lactic Acid Phosphorus Magnesium Ferritin Lactate Dehydrogenase C-Reactive Protein NT-Pro-B Natriuret Pep Total Protein Albumin Triglycerides Arterial Blood Glucose Ur Specific [place] Coronavirus (PCR) 03/18/21 03/18/21 03/18/21 04:18 04:50 05:43 WBC RBC Hgb Hct MCHC RDW Lymph % (Auto) [facility] % (Auto) [facility] # (Auto) Seg Neutrophils % Seg Neuts % (Manual) Lymphocytes % (Manual) Monocytes % (Manual) Nucleated RBC % Seg Neutrophils # Seg Neutrophils # Man Lymphocytes # (Manual) Monocytes # (Manual) PT INR D-Dimer ABG pH POC ABG pCO2 POC ABG pO2 ABG pO2 59.8 L ABG HCO3 36.5 H ABG O2 Saturation 90.7 L ABG Base Excess 9.4 H ABG Hemoglobin 12.0 L ABG Oxyhemoglobin ABG Sodium ABG Potassium ABG Glucose Oxyhemoglobin 88.9 L Sodium Potassium Chloride 107.2 H Carbon Dioxide 34 H BUN 38 H Creatinine 0.7 L Glucose 136 H POC Glucose 128 H Lactic Acid Phosphorus Magnesium Ferritin Lactate Dehydrogenase C-Reactive Protein NT-Pro-B Natriuret Pep Total Protein Albumin Triglycerides Arterial Blood Glucose Ur Specific [place] Coronavirus (PCR) Chest x-ray: image reviewed Allied health notes reviewed: RT
[2021-03-18] MEDS: methylPREDNISolone Sod Succinate 125 MG/2 ML INJ IV SCH ×3 (06:23→22:29)
[2021-03-18] MEDS: CEFEPIME/NS 2 GM/100 ML 2 GM/100 ML BAG IV SCH ×3 (06:24→22:28)
[2021-03-18] MEDS: hydrALAZINE 25 MG TAB PO SCH ×3 (06:24→22:30)
[2021-03-18] MEDS: IPRATROPIUM/ALBUTEROL SULFATE 3 ML AMPUL.NEB IH SCH ×6 (07:38→21:42)
[2021-03-18] MEDS: BUDESONIDE 0.25 MG/2 ML NEBU IH SCH ×3 (07:39→21:06)
[2021-03-18] MEDS: ARFORMOTEROL 15 MCG/2 ML NEBU IH SCH ×3 (07:39→21:06)
[2021-03-18] MEDS: ASCORBIC ACID 500 MG TAB PO SCH ×2 (10:45→22:30)
[2021-03-18] MEDS: FAMOTIDINE 20 MG TAB FEEDTUBE SCH ×2 (10:45→22:30)
[2021-03-18] MEDS: QUEtiapine 100 MG TAB PO SCH ×2 (10:45→22:30)
[2021-03-18] MEDS: VANCOMYCIN 1,750 MG in SODIUM CHLORIDE 0.9% 500 ML 500 ML IV SCH ×2 (10:45→22:28)
[2021-03-18] MEDS: ZINC SULFATE 220 MG CAP PO SCH ×2 (10:45→22:30)
[2021-03-18] MEDS: INSULIN GLARGINE 100 UNITS/ML SUB-Q SCH ×2 (10:46→22:31)
[2021-03-18] MEDS: ENOXAPARIN 100 MG/1 ML INJ SUB-Q SCH ×2 (10:46→22:30)
--- NOTE | 2021-03-18 11:01 | Progress Note ---
Assessment and Plan Assessment and plan: This is a 61-year-old male with past medical history of HTN and DM admitted for sepsis and acute hypoxic respiratory failure 2/2 COVID pneumonia requiring ventilatory support. Hospital Course to Date: 03/09: The patient was seen and evaluated today, and he was found to be hemo dynamically stable. The patient is currently on BiPAP for possible COVID-19 pneumonia. He was started on Lovenox 1mg/kg for DVT ppx in the setting of d- dimer > 10,000. Infectious Disease was consulted. The patient is pending a TTE. 03/10: No acute events overnight, patient was intubated in the afternoon transferred to ICU 03/11: Patient started on Lantus, free water flushes increased, propofol drip resumed and oral antihypertensive added. 03/12: lantus increased, k at 5, will monitor. I updated his family and his stated that he is not vaccinated. He does have HTN and she will call the RN to update home medications. She did say he takes bystolic and amlopine. She inquired about ventilator and lab work. She had no further questions. 03/13: KVNG overnight. Patient remains hyperglycemic, basal insulin adjusted and increased to Q12hrs. Patient is overall net positive since admit X1 dose of IV lasix, repeat BMP this afternoon. 03/14: Failed SAT this am due to increase agitation, tachycardia and hypertension. Remains on propofol and fentanyl gtt. Hyperkalemia treated with PO kayaxalate. Patient responded to IV lasix yesterday additional dose again today for a net negative balance. Repeat BMP this afternoon. Insulin adjusted for hyperglycemia. 03/15: Remains encephalopathic, not following commansd. Orders placed for CT head/Brain and Neuro consulted. Rectal bleeding subsided, most likely due to hemorrhoids. H&H is stable will continue to monitor. Kayaxexalate for high K, repeat labs 4 to 6hrs post treatment. 03/16: Still agiated this am, CT head with no acute Abn. CXR and ABG noted- evolving pna and worsening hypoxia, now with low grade fevers. Sputum culture ordered, IV Abx added, ID on cosult. 03/17: This am ABG noted, hypoxia improved. Continue to wean FiO2 as tolerated. Still with low grade fevers, on IV Abx per ID. Still with periods of confusion despite sedation, seroquel increased. F/u CXR in the am 03/18: still very agitated especially when off sedation, with hypertension and tachycardia. Continue sedation for RASS -2, PRN antihypertensive for SPB greater than 160. This febrile this am, continue current IV abx per ID Assessment and Plan #Neuro:Acute Encephalopathy - Intubated and sedated on propofol and fentanyl, RASS -2 - Titrate sedation for RASS goal of 0 to -1 - Failed SAT, not tolerating sedation wean - CT head/brain no acute Abn. - Seroquel increased, monitor Qtc - Avoid benzodiazepine to reduce the possibility of delirium - Prn analgesia for CPOT greater than 3 - Maintenance of sleep-wake cycle - Neurology on consult #CV: Hypertension - BP stable this am - 03/09 Echocardiogram shows a mildly dilated ascending aorta, normal LV systolic function, mild concentric LVH, LVEF 60 to 65% - Continue PO Hydralazine - PRN Antihypertensive for SBP above 160 - Continue Blood pressure monitoring per protocol #Acute Hypoxic Respiratory Failure #COVID Pneumonia - Intubated on 03/10 due to worsen hypoxia on BIPAP - COVID swab positive - CXR showed bilateral patchy infiltrates - CT chest shows severe patchy multifocal groundglass airspace disease - Vent setting:PRVC-50%,8,25,450 - Wean Fio2 as tolerated - AM ABG noted - CCM consulted, appreciate recommendations - Continue IV Steroids and Nebs per CCM - keep patient net negative for better lung compliance - VAP bundle addressed - Aspiration precaution HOB above 30 - Daily SBT and SAT trials as tolerated - Daily ABG and CXR - Continue SPO2 monitoring for SPO2 goal above 92% #GI:TF - Continue enteral nutrition - Nutrition consulted - Continue PPI and BR #Hypernatremia-improved #Hyperkalemia-improved - Continue FWF - Repeat BMp ordered - Strict intake and output - Avoid nephrotoxic medications; Renally dose medications - Good in place - Monitor and replace electrolytes as needed -Trend BMP #Elevated D-dimer - Most likely due to COVID - Bilateral lower extremity ultrasounds negative for DVT, superficial thrombus in left gastrocnemius vein - CTA chest shows no gross pulm embolism - H&H stable - Continue AC- Lovenox SubQ - SCDs to BLE while in bed - Transfuse hemoglobin less than 7 - Monitor for signs of bleeding #Sepsis #COVID Pneumonia #Leukocytosis #Lactic Acidosis- Resolved - COVID PCR positive - UA neg, Blood cultures and Sputum culture NGTD - Infectious disease consulted, appreciate recommendation - S/p Actemra 03/10/2021 - Continue IV remdesivir for 5 days - Dexamethasone x10 days - repeat Sputum culture and Bculture pending - Continue IV ABx per ID - Monitor WBC and temperature curve - Trend CBC #Endo:Hyperglycemia #h/o DM - Patient on IV steroids - Continue high dose SSI Q6hrs - Additional Short acting insulin Q6hrs - Basal insulin increased to BID The high probability of a clinically significant, sudden or life threatening deterioration of the [multi] system(s) required my full and direct attention, intervention and personal management. The aggregate critical care time was [60] minutes. This time is in addition to time spent performing reported procedures but includes the following: [x] Data Review and interpretation [x] Patient assessment and monitoring of vital signs [x] Documentation [x] Medication orders and management Disposition Plan: ICU Total Time Spent with Patient (Minutes): 60 History Interval history: Patient seen and examined at the bedside. Remains intubated and on seadtion. Still with periods of agitation, not following commands Hospitalist Physical - Constitutional Vitals: Temp Pulse Resp BP Pulse Ox 99.0 F 117 H 25 H 185/104 97 03/18/21 07:23 03/18/21 07:46 03/18/21 07:46 03/18/21 07:46 03/18/21 07:46 General appearance: Present: mild distress, well-nourished, obese, other (Intubated and sedated) - EENT Eyes: Present: PERRL - Respiratory Respiratory: bilateral: rhonchi - Cardiovascular Rhythm: regular Heart Sounds: Present: S1 & S2 - Extremities Extremities: no ischemia, pulses intact, pulses symmetrical Extremity abnormal: edema - Peripheral Assessment Generalized Edema Type: Non-pitting Edema Degree: 1+ Capillary Refill: < 3 seconds Skin Temperature: Warm Peripheral Pulses: within normal limits - Abdominal General gastrointestinal: soft, non-distended, normal bowel sounds - Integumentary Integumentary: Present: warm, dry - Psychiatric Psychiatric: other (Intubated and sedated) - Neurologic Neurologic: other (Intubated and sedated) - Allied Health Allied health notes reviewed: nursing Results - Labs CBC & Chem 7: 03/18/21 04:50 03/18/21 04:50 Labs: Laboratory Last Values WBC 9.7 K/mm3 (4.5-11.0) 03/18/21 04:50 RBC 4.07 M/mm3 (3.65-5.03) 03/18/21 04:50 Hgb 12.2 gm/dl (11.8-15.2) 03/18/21 04:50 Hct 38.3 % (35.5-45.6) 03/18/21 04:50 MCV 94 fl (84-94) 03/18/21 04:50 MCH 30 pg (28-32) 03/18/21 04:50 MCHC 32 % (32-34) 03/18/21 04:50 RDW 14.9 % (13.2-15.2) 03/18/21 04:50 Plt Count 313 K/mm3 (140-440) 03/18/21 04:50 Lymph % (Auto) 12.6 % (13.4-35.0) L 03/17/21 04:40 [place] % (Auto) 11.3 % (0.0-7.3) H 03/17/21 04:40 Eos % (Auto) 0.4 % (0.0-4.3) 03/17/21 04:40 Baso % (Auto) 0.8 % (0.0-1.8) 03/17/21 04:40 Lymph # (Auto) 1.8 K/mm3 (1.2-5.4) 03/17/21 04:40 [place] # (Auto) 1.6 K/mm3 (0.0-0.8) H 03/17/21 04:40 Eos # (Auto) 0.1 K/mm3 (0.0-0.4) 03/17/21 04:40 Baso # (Auto) 0.1 K/mm3 (0.0-0.1) 03/17/21 04:40 Add Manual Diff Complete 03/10/21 04:29 Total Counted 100 03/10/21 04:29 Seg Neutrophils % 74.9 % (40.0-70.0) H 03/17/21 04:40 Seg Neuts % (Manual) 94.0 % (40.0-70.0) H 03/10/21 04:29 Band Neutrophils % 0 % 03/10/21 04:29 Lymphocytes % (Manual) 1.0 % (13.4-35.0) L 03/10/21 04:29 Reactive Lymphs % (Man) 0 % 03/10/21 04:29 Monocytes % (Manual) 5.0 % (0.0-7.3) 03/10/21 04:29 Eosinophils % (Manual) 0 % (0.0-4.3) 03/10/21 04:29 Basophils % (Manual) 0 % (0.0-1.8) 03/10/21 04:29 Metamyelocytes % 0 % 03/10/21 04:29 Myelocytes % 0 % 03/10/21 04:29 Promyelocytes % 0 % 03/10/21 04:29 Blast Cells % 0 % 03/10/21 04:29 Nucleated RBC % 3.0 % (0.0-0.9) H 03/10/21 04:29 Seg Neutrophils # 10.5 K/mm3 (1.8-7.7) H 03/17/21 04:40 Seg Neutrophils # Man 19.4 K/mm3 (1.8-7.7) H 03/10/21 04:29 Band Neutrophils # 0.0 K/mm3 03/10/21 04:29 Lymphocytes # (Manual) 0.2 K/mm3 (1.2-5.4) L 03/10/21 04:29 Abs React Lymphs (Man) 0.0 K/mm3 03/10/21 04:29 Monocytes # (Manual) 1.0 K/mm3 (0.0-0.8) H 03/10/21 04:29 Eosinophils # (Manual) 0.0 K/mm3 (0.0-0.4) 03/10/21 04:29 Basophils # (Manual) 0.0 K/mm3 (0.0-0.1) 03/10/21 04:29 Metamyelocytes # 0.0 K/mm3 03/10/21 04:29 Myelocytes # 0.0 K/mm3 03/10/21 04:29 Promyelocytes # 0.0 K/mm3 03/10/21 04:29 Blast Cells # 0.0 K/mm3 03/10/21 04:29 WBC Morphology Not Reportable 03/10/21 04:29 Hypersegmented Neuts Not Reportable 03/10/21 04:29 Hyposegmented Neuts Not Reportable 03/10/21 04:29 Hypogranular Neuts Not Reportable 03/10/21 04:29 Smudge Cells Not Reportable 03/10/21 04:29 Toxic Granulation Not Reportable 03/10/21 04:29 Toxic Vacuolation Not Reportable 03/10/21 04:29 Dohle Bodies Not Reportable 03/10/21 04:29 Pelger-Huet Anomaly Not Reportable 03/10/21 04:29 Mely Rods Not Reportable 03/10/21 04:29 Platelet Estimate Consistent w auto 03/10/21 04:29 Clumped Platelets Not Reportable 03/10/21 04:29 Plt Clumps, EDTA Not Reportable 03/10/21 04:29 Large Platelets Not Reportable 03/10/21 04:29 Giant Platelets Not Reportable 03/10/21 04:29 Platelet Satelliting Not Reportable 03/10/21 04:29 Plt Morphology Comment Not Reportable 03/10/21 04:29 RBC Morphology Normal 03/10/21 04:29 Dimorphic RBCs Not Reportable 03/10/21 04:29 Polychromasia Not Reportable 03/10/21 04:29 Hypochromasia Not Reportable 03/10/21 04:29 Poikilocytosis Not Reportable 03/10/21 04:29 Anisocytosis Not Reportable 03/10/21 04:29 Microcytosis Not Reportable 03/10/21 04:29 Macrocytosis Not Reportable 03/10/21 04:29 Spherocytes Not Reportable 03/10/21 04:29 Pappenheimer Bodies Not Reportable 03/10/21 04:29 Sickle Cells Not Reportable 03/10/21 04:29 Target Cells Not Reportable 03/10/21 04:29 Tear Drop Cells Not Reportable 03/10/21 04:29 Ovalocytes Not Reportable 03/10/21 04:29 Helmet Cells Not Reportable 03/10/21 04:29 Longo-Radisson Bodies Not Reportable 03/10/21 04:29 Bethany Rings Not Reportable 03/10/21 04:29 Shama Cells Not Reportable 03/10/21 04:29 Bite Cells Not Reportable 03/10/21 04:29 Crenated Cell Not Reportable 03/10/21 04:29 Elliptocytes Not Reportable 03/10/21 04:29 Acanthocytes (Spur) Not Reportable 03/10/21 04:29 Rouleaux Not Reportable 03/10/21 04:29 Hemoglobin C Crystals Not Reportable 03/10/21 04:29 Schistocytes Not Reportable 03/10/21 04:29 Malaria parasites Not Reportable 03/10/21 04:29 Shaheen Bodies Not Reportable 03/10/21 04:29 Hem Pathologist Commnt No 03/10/21 04:29 PT 16.1 Sec. (12.2-14.9) H 03/08/21 20:24 INR 1.17 (0.87-1.13) H 03/08/21 20:24 APTT 28.0 Sec. (24.2-36.6) 03/08/21 20:24 D-Dimer 1359.12 ng/mlDDU (0-234) H 03/17/21 04:40 ABG pH 7.386 pH Units (7.350-7.450) 03/18/21 04:18 POC ABG pCO2 71.9 mmHg (32.0-48.0) H 03/12/21 21:54 ABG pCO2 62.2 mm Hg 03/18/21 04:18 POC ABG pO2 53.6 mmHg (83-108) L 03/12/21 21:54 ABG pO2 59.8 mm Hg (80.0-90.0) L 03/18/21 04:18 POC ABG HCO3 30.0 03/12/21 21:54 ABG HCO3 36.5 mmol/L (20.0-26.0) H 03/18/21 04:18 ABG O2 Saturation 90.7 % (95.0-99.0) L 03/18/21 04:18 ABG O2 Content 14.9 (0.0-44) 03/18/21 04:18 POC ABG Base Excess 0.5 03/12/21 21:54 ABG Base Excess 9.4 mmol/L (-2.0-3.0) H 03/18/21 04:18 ABG Hemoglobin 12.0 gm/dl (14.0-18.0) L 03/18/21 04:18 ABG Oxyhemoglobin 84.8 (94-98) L 03/12/21 21:54 ABG Carboxyhemoglobin 1.4 % (0.0-5.0) 03/18/21 04:18 ABG Methemoglobin 0.6 % (0.0-1.5) 03/18/21 04:18 ABG Sodium 134.2 mmol/L (136.0-145.0) L 03/12/21 21:54 ABG Potassium 4.9 mmol/L (3.40-4.50) H 03/12/21 21:54 ABG Chloride 99.0 mmol/L (98-107) 03/12/21 21:54 ABG Glucose 306 mg/dL (65-95) H 03/12/21 21:54 Oxyhemoglobin 88.9 % (95.0-99.0) L 03/18/21 04:18 Carboxyhemoglobin 0.6 (0.5-1.5) 03/12/21 21:54 FiO2 50 % 03/18/21 04:18 FiO2 % 50.0 03/12/21 21:54 Sodium 145 mmol/L (137-145) 03/18/21 04:50 Potassium 4.5 mmol/L (3.6-5.0) 03/18/21 04:50 Chloride 107.2 mmol/L (98-107) H 03/18/21 04:50 Carbon Dioxide 34 mmol/L (22-30) H 03/18/21 04:50 Anion Gap 8 mmol/L 03/18/21 04:50 BUN 38 mg/dL (9-20) H 03/18/21 04:50 Creatinine 0.7 mg/dL (0.8-1.3) L 03/18/21 04:50 Estimated GFR > 60 ml/min 03/18/21 04:50 BUN/Creatinine Ratio 54 % 03/18/21 04:50 Glucose 136 mg/dL (75-100) H 03/18/21 04:50 POC Glucose 128 mg/dL (70-105) H 03/18/21 05:43 Lactic Acid 1.90 mmol/L (0.7-2.0) 03/08/21 23:51 Calcium 8.5 mg/dL (8.4-10.2) 03/18/21 04:50 Phosphorus 4.80 mg/dL (2.5-4.5) H D 03/15/21 06:06 Magnesium 2.70 mg/dL (1.7-2.3) H 03/17/21 04:40 Ferritin 976.4 ng/mL (30.0-300.0) H 03/15/21 04:00 Total Bilirubin 0.20 mg/dL (0.1-1.2) 03/12/21 08:03 AST 10 units/L (5-40) 03/12/21 08:03 ALT 16 units/L (7-56) 03/12/21 08:03 Alkaline Phosphatase 77 units/L (35-129) 03/12/21 08:03 Lactate Dehydrogenase 630 units/L (91-180) H 03/15/21 06:06 C-Reactive Protein 0.40 mg/dL (0.00-1.30) 03/17/21 04:40 NT-Pro-B Natriuret Pep 1053 pg/mL (0-900) H 03/08/21 20:24 Total Protein 6.0 g/dL (6.3-8.2) L 03/12/21 08:03 Albumin 2.9 g/dL (3.9-5) L 03/12/21 08:03 Albumin/Globulin Ratio 0.9 % 03/12/21 08:03 Triglycerides 267 mg/dL (2-149) H 03/16/21 04:11 Procalcitonin 0.05 ng/mL (<0.15) 03/17/21 04:40 Arterial Blood Glucose 306 mg/dL (65-95) H 03/12/21 21:54 Arterial Blood Ionized Calcium 5.0 mg/dL (4.6-5.3) 03/12/21 21:54 Urine Color Yellow (Yellow) 03/09/21 04:10 Urine Turbidity Slightly-cloudy (Clear) 03/09/21 04:10 Urine pH 5.0 (5.0-7.0) 03/09/21 04:10 Ur Specific [place] 1.041 (1.003-1.030) H 03/09/21 04:10 Urine Protein 100 mg/dl mg/dL (Negative) 03/09/21 04:10 Urine Glucose (UA) Neg mg/dL (Negative) 03/09/21 04:10 Urine Ketones Neg mg/dL (Negative) 03/09/21 04:10 Urine Blood Mod (Negative) 03/09/21 04:10 Urine Nitrite Neg (Negative) 03/09/21 04:10 Urine Bilirubin Neg (Negative) 03/09/21 04:10 Urine Urobilinogen 2.0 mg/dL (<2.0) 03/09/21 04:10 Ur Leukocyte Esterase Neg (Negative) 03/09/21 04:10 Urine WBC (Auto) 4.0 /HPF (0.0-6.0) 03/09/21 04:10 Urine RBC (Auto) 1.0 /HPF (0.0-6.0) 03/09/21 04:10 Urine Bacteria (Auto) 1+ /HPF (Negative) 03/09/21 04:10 Urine Mucus Few /HPF 03/09/21 04:10 Coronavirus (PCR) Positive (Negative) A 03/09/21 08:00 Microbiology: Microbiology 03/17/21 14:27 Tracheal Aspirate Sputum Culture - Preliminary 03/16/21 13:51 Peripheral/Venous Blood Culture - Preliminary NO GROWTH AFTER 24 HOURS 03/16/21 13:51 Peripheral/Venous Blood Culture - Preliminary NO GROWTH AFTER 24 HOURS Good/IV: Voiding Method Indwelling Catheter Active Medications - Current Medications Current Medications: Generic Name Dose Route Start Last Admin Trade Name Freq PRN Reason Stop Dose Admin Acetaminophen 650 mg 03/09/21 01:26 03/17/21 12:08 Acetaminophen 325 Mg Tab PO 650 mg Q4H PRN Administration Pain MILD(1-3)/Fever >100.5/RAYO Albuterol 2.5 mg 03/09/21 01:26 Albuterol 2.5 Mg/3 Ml Nebu IH Q4HRT PRN Shortness Of Breath Albuterol/Ipratropium 1 ampul 03/11/21 08:00 03/18/21 07:47 Ipratropium/Albuterol Sulfate 3 Ml Ampul.Neb IH 1 ampul TIDRT BLANCA Administration Arformoterol Tartrate 15 mcg 03/11/21 20:00 03/18/21 07:47 Arformoterol 15 Mcg/2 Ml Nebu IH 15 mcg Q12HRT BLANCA Administration Ascorbic Acid 500 mg 03/10/21 14:00 03/18/21 10:45 Ascorbic Acid 500 Mg Tab PO 500 mg BID BLANCA Administration Budesonide 0.25 mg 03/11/21 20:00 03/18/21 07:46 Budesonide 0.25 Mg/2 Ml Nebu IH 0.25 mg Q12HRT BLANCA Administration Dextrose 0 ml 03/09/21 01:26 Dextrose 50% In Water (25gm) 50 Ml Syringe IV Q30MIN PRN Hypoglycemia Protocol Enoxaparin Sodium 100 mg 03/09/21 10:00 03/18/21 10:46 Enoxaparin 100 Mg/1 Ml Inj SUB-Q 100 mg Q12HR BLANCA Administration Protocol Famotidine 20 mg 03/12/21 22:00 03/18/21 10:45 Famotidine 20 Mg Tab FEEDTUBE 20 mg BID BLANCA Administration Fentanyl 50 mcg 03/10/21 16:47 Fentanyl 100 Mcg/2 Ml Inj IV Q10MIN PRN ANALGESIA Hydralazine HCl 10 mg 03/09/21 01:36 03/10/21 03:56 Hydralazine 20 Mg/1 Ml Inj IV 10 mg Q6H PRN Administration Blood Pressure Hydralazine HCl 50 mg 03/11/21 17:00 03/18/21 06:24 Hydralazine 25 Mg Tab PO 50 mg Q8HR BLANCA Administration Hydrophilic Ointment 1 applic 03/10/21 15:39 Lip Therapy Vaseline TP Q2HR PRN Dry Lips Fentanyl Citrate 2,000 mcg in 100 mls @ 5.897 mls/hr 03/10/21 17:00 03/18/21 10:42 Fentanyl Drip Premix IV 4 mcg/kg/hr TITR BLANCA 23.587 mls/hr Administration Protocol 1 MCG/KG/HR Propofol 1,000 mg in 100 mls @ 3.507 mls/hr 03/11/21 17:00 03/18/21 10:41 Diprivan 10 Mg/Ml IV 50 mcg/kg/min TITR BLANCA 35.07 mls/hr Titration Protocol 5 MCG/KG/MIN Vancomycin HCl 1,750 mg/ 535 mls @ 333 mls/hr 03/16/21 22:00 03/18/21 10:45 Sodium Chloride IV 333 mls/hr Q12HR BLANCA Administration Protocol Cefepime HCl 2 gm in 100 mls @ 200 mls/hr 03/16/21 17:00 03/18/21 06:24 Cefepime/Ns 2 Gm/100 Ml IV 200 mls/hr Q8HR BLANCA Administration Protocol Insulin Glargine 25 units 03/14/21 10:00 03/18/21 10:46 Insulin Glargine 100 Units/Ml SUB-Q 25 units BID BLANCA Administration Insulin Human Lispro 0 unit 03/11/21 18:00 03/18/21 06:15 Insulin Lispro 100 Unit/Ml SUB-Q Not Given Q6HR [facility] Protocol Insulin Human Regular 5 units 03/14/21 12:00 03/18/21 06:24 Insulin Regular, Human 100 Units/1 Ml SUB-Q 5 units Q6HR BLANCA Administration Labetalol HCl 10 mg 03/12/21 21:13 Labetalol 20 Mg/4 Ml Inj IV Q6H PRN Blood Pressure Methylprednisolone Sodium Succinate 60 mg 03/10/21 22:00 03/18/21 06:23 Methylprednisolone Sod Succinate 125 Mg/2 Ml Inj IV 03/20/21 14:01 60 mg Q8HR BLANCA Administration Midazolam HCl 2 mg 03/15/21 08:49 03/17/21 10:45 Midazolam 2 Mg/2 Ml Inj IV 2 mg Q2H PRN Administration VENT SYNCHRONY Multi-Ingred Cream/Lotion/Oil/Oint 1 applic 03/10/21 15:39 Mineral Oil/Petrolatum, White Ophth Oint 3.5 Gm OU Q4HR PRN Dry Eye(s) Ondansetron HCl 4 mg 03/09/21 01:26 Ondansetron 4 Mg/2 Ml Inj IV Q8H PRN Nausea And Vomiting Quetiapine Fumarate 100 mg 03/17/21 14:00 03/18/21 10:45 Quetiapine 100 Mg Tab PO 100 mg BID BLANCA Administration Senna/Docusate Sodium 1 tab 03/10/21 22:00 03/17/21 21:00 Sennosides/Docusate Sodium 8.6/50 Mg Tab FEEDTUBE 1 tab BID BLANCA Administration Sodium Chloride 10 ml 03/09/21 10:00 03/18/21 10:51 Sodium Chloride 0.9% 10 Ml Flush Syringe IV 10 ml BID BLANCA Administration Sodium Chloride 10 ml 03/09/21 01:26 Sodium Chloride 0.9% 10 Ml Flush Syringe IV PRN PRN LINE FLUSH Zinc Sulfate 220 mg 03/10/21 14:00 03/18/21 10:45 Zinc Sulfate 220 Mg Cap PO 220 mg BID BLANCA Administration Nutrition/Malnutrition Assess - Dietary Evaluation Nutrition/Malnutrition Findings: Nutrition Notes Start: 03/09/21 08:49 Freq: Status: Active Protocol: Document 03/17/21 15:48 BARBRALEANN (Rec: 03/17/21 15:55 NHALL [id number]) Nutrition Notes Initial or Follow up Reassessment Current Diagnosis Diabetes,Sepsis,Hypertension, Respiratory Failure Other Pertinent Diagnosis COVID-19 pneu Current Diet TF-Glucerna 1.2 [place] at 66 ml/ hr Labs/Tests POC Glu range: 162-263 Na 148 BUN 42 BG 183 Mg 2.7 Pertinent Medications Propofol at 31.563ml/hr ( provides 833 kcal) Height 5 ft 11 in Weight 117 kg [place] Body Weight (kg) 78.18 BMI 35.9 Weight Status Obese Subjective/Other Information Pt remains on vent support. Pt receiving a lot of calories from propofol at this time. Will decrease TF rate to prevent overfeeding. Pt with a low-grade fever. Burn Absent Trauma Absent Minimum of two criteria No #1 Nutrition Diagnosis Inadequate oral intake Diagnosis Progress(for reassessment Continues documentation) Is patient on ventilator? Yes Is Patient Ambulatory and/or Out of Bed No REE-([facility]-confined to bed) 1149.200 Calculation Used for Recommendations 70-80% energy needs Additional Notes Energy needs: 8939-3384 kcal/ day Pro needs 1.3g/kg adjBW: 127g/ day Fluid needs 1ml/kcal Nutrition Intervention Nutrition Support: Decrease TF rate to Glucerna 1 .2 at 40ml/hr with 200ml water flush q4h (until hypernatremia resolved). TF + propofol will provide 1985 kcal. Kcal 1,152 Protein (gm) 58 Carbohydrates (gm) 110 Fat (gm) 58 Fluid (mL) 773 Fiber (gm) 15 Goal #1 TF tolerance Goal #2 TF to meet nutrient needs as best possible Follow-Up By: 03/20/21 Additional Comments F/U: TF rate/tolerance, propofol rate, vent status
--- NOTE | 2021-03-18 16:14 | Event Note ---
Date: 03/18/21 Call and updated patien's , Donna Vargas at [phone]. Patient's daughter was also added to the call. They were updated on patient current status and condition. All questions and concerns were addressed at this time. Team will continue to f/u with further updates. + CCT 25min
[2021-03-18] MEDS: MIDAZOLAM 2 MG/2 ML INJ IV PRN (16:57)
[2021-03-18] MEDS: hydrALAZINE 20 MG/1 ML INJ IV PRN (17:04)
[2021-03-18] MEDS: fentaNYL 100 MCG/2 ML INJ IV PRN ×3 (17:04→22:35)
[2021-03-18 18:12] LABS: ABG HCO3 33.6 mmol/L (20.0-26.0); ABG Methemoglobin 0.7 % (0.0-1.5); ABG Oxygen Saturation 95.5 % (95.0-99.0); ABG PCO2 50.2 mm Hg; ABG PH 7.443 pH Units (7.350-7.450); ABG PO2 70.7 mm Hg (80.0-90.0)
[2021-03-18] MEDS: SENNOSIDES/DOCUSATE SODIUM 8.6/50 MG TAB FEEDTUBE SCH ×2 (20:42→22:31)
[2021-03-18] MEDS ORDERED: niCARdipine 50 MG in SODIUM CHLORIDE 0.9% 250ML 230 ML IV SCH (21:00)
[2021-03-19] MEDS: fentaNYL 100 MCG/2 ML INJ IV PRN (01:23)
[2021-03-19 03:26] LABS: ABG Base Excess 5.2 mmol/L (-2.0-3.0); ABG Methemoglobin 0.6 % (0.0-1.5); ABG Oxygen Saturation 96.5 % (95.0-99.0); ABG PCO2 56.1 mm Hg; ABG PH 7.373 pH Units (7.350-7.450); ABG PO2 83.5 mm Hg (80.0-90.0)
[2021-03-19] MEDS: fentaNYL DRIP Premix 2,000 MCG/100 ML BAG IV SCH ×5 (04:02→23:04)
[2021-03-19 05:27] LABS: Hematocrit 40.8 % (35.5-45.6); Mean Corpuscular HGB Conc 32 % (32-34); Mean Corpuscular Volume 94 fl (84-94); Platelet Count 332 K/mm3 (140-440); Red Blood Count 4.35 M/mm3 (3.65-5.03); Red Cell Distribution Width 14.9 % (13.2-15.2)
[2021-03-19 05:52] LABS: BUN/Creatinine Ratio 45; Blood Urea Nitrogen 36 mg/dL (9-20); Calcium 8.5 mg/dL (8.4-10.2); Hemolysis Index 20
[2021-03-19] MEDS: INSULIN REGULAR, HUMAN 100 UNITS/1 ML SUB-Q SCH ×4 (05:59→18:02)
[2021-03-19] MEDS: INSULIN LISPRO 100 UNIT/ML SUB-Q SCH ×4 (06:00→19:10)
[2021-03-19] MEDS: hydrALAZINE 25 MG TAB PO SCH ×3 (06:00→21:01)
[2021-03-19] MEDS: CEFEPIME/NS 2 GM/100 ML 2 GM/100 ML BAG IV SCH ×3 (06:03→21:01)
[2021-03-19] MEDS: methylPREDNISolone Sod Succinate 125 MG/2 ML INJ IV SCH ×3 (06:03→21:03)
[2021-03-19] MEDS: VANCOMYCIN 1,750 MG in SODIUM CHLORIDE 0.9% 500 ML 500 ML IV SCH ×2 (09:50→21:04)
[2021-03-19] MEDS: INSULIN GLARGINE 100 UNITS/ML SUB-Q SCH ×2 (09:50→21:02)
[2021-03-19] MEDS: ZINC SULFATE 220 MG CAP PO SCH ×2 (09:51→21:03)
[2021-03-19] MEDS: FAMOTIDINE 20 MG TAB FEEDTUBE SCH ×2 (09:51→21:02)
[2021-03-19] MEDS: ASCORBIC ACID 500 MG TAB PO SCH ×2 (09:51→21:03)
[2021-03-19] MEDS: SENNOSIDES/DOCUSATE SODIUM 8.6/50 MG TAB FEEDTUBE SCH ×2 (09:51→21:03)
[2021-03-19] MEDS: QUEtiapine 100 MG TAB PO SCH ×2 (09:51→21:03)
[2021-03-19] MEDS: ENOXAPARIN 100 MG/1 ML INJ SUB-Q SCH ×2 (09:51→21:02)
[2021-03-19] MEDS: IPRATROPIUM/ALBUTEROL SULFATE 3 ML AMPUL.NEB IH SCH ×3 (10:29→20:27)
[2021-03-19] MEDS: BUDESONIDE 0.25 MG/2 ML NEBU IH SCH ×2 (10:29→20:28)
[2021-03-19] MEDS: ARFORMOTEROL 15 MCG/2 ML NEBU IH SCH ×2 (10:29→20:27)
--- NOTE | 2021-03-19 10:52 | Progress Note ---
<DEBBY ELLISON - Last Filed: 03/19/21 16:20> Assessment and Plan Assessment and plan: This is a 61-year-old male with past medical history of HTN and DM admitted for sepsis and acute hypoxic respiratory failure 2/2 COVID pneumonia requiring ventilatory support. Hospital Course to Date: 03/09: The patient was seen and evaluated today, and he was found to be hemodynamically stable. The patient is currently on BiPAP for possible COVID-19 pneumonia. He was started on Lovenox 1mg/kg for DVT ppx in the setting of d- dimer > 10,000. Infectious Disease was consulted. The patient is pending a TTE. 03/10: No acute events overnight, patient was intubated in the afternoon transferred to ICU 03/11: Patient started on Lantus, free water flushes increased, propofol drip resumed and oral antihypertensive added. 03/12: lantus increased, k at 5, will monitor. I updated his family and his stated that he is not vaccinated. He does have HTN and she will call the RN to update home medications. She did say he takes bystolic and amlopine. She inquired about ventilator and lab work. She had no further questions. 03/13: KVNG overnight. Patient remains hyperglycemic, basal insulin adjusted and increased to Q12hrs. Patient is overall net positive since admit X1 dose of IV lasix, repeat BMP this afternoon. 03/14: Failed SAT this am due to increase agitation, tachycardia and hypertension. Remains on propofol and fentanyl gtt. Hyperkalemia treated with PO kayaxalate. Patient responded to IV lasix yesterday additional dose again today for a net negative balance. Repeat BMP this afternoon. Insulin adjusted for hyperglycemia. 03/15: Remains encephalopathic, not following commansd. Orders placed for CT head/Brain and Neuro consulted. Rectal bleeding subsided, most likely due to hemorrhoids. H&H is stable will continue to monitor. Kayaxexalate for high K, repeat labs 4 to 6hrs post treatment. 03/16: Still agiated this am, CT head with no acute Abn. CXR and ABG noted- evolving pna and worsening hypoxia, now with low grade fevers. Sputum culture ordered, IV Abx added, ID on cosult. 03/17: This am ABG noted, hypoxia improved. Continue to wean FiO2 as tolerated. Still with low grade fevers, on IV Abx per ID. Still with periods of confusion despite sedation, seroquel increased. F/u CXR in the am 03/18: still very agitated especially when off sedation, with hypertension and tachycardia. Continue sedation for RASS -2, PRN antihypertensive for SPB greater than 160. This febrile this am, continue current IV abx per ID 03/19: Patient afebrile overnight, continue IV Abx per ID. ABG also improved this am, continue to wean FIO2 as tolerated. PRN antihypertensive for hyppertension. Assessment and Plan #Neuro:Acute Encephalopathy - Intubated and sedated on propofol and fentanyl, RASS -2 - Titrate sedation for RASS goal of 0 to -1 - Failed SAT, not tolerating sedation wean - CT head/brain no acute Abn. - Seroquel increased, monitor Qtc - Avoid benzodiazepine to reduce the possibility of delirium - Prn analgesia for CPOT greater than 3 - Maintenance of sleep-wake cycle - Neurology on consult #CV: Hypertension - BP stable this am - 03/09 Echocardiogram shows a mildly dilated ascending aorta, normal LV systolic function, mild concentric LVH, LVEF 60 to 65% - Continue PO Hydralazine - PRN Antihypertensive for SBP above 160 - Continue Blood pressure monitoring per protocol #Acute Hypoxic Respiratory Failure #COVID Pneumonia - Intubated on 03/10 due to worsen hypoxia on BIPAP - COVID swab positive - CXR showed bilateral patchy infiltrates - CT chest shows severe patchy multifocal groundglass airspace disease - Vent setting:PRVC-45%,8,25,450 - Wean Fio2 as tolerated - AM ABG noted - CCM consulted, appreciate recommendations - Continue IV Steroids and Nebs per CCM - keep patient net negative for better lung compliance - VAP bundle addressed - Aspiration precaution HOB above 30 - Daily SBT and SAT trials as tolerated - Daily ABG and CXR - Continue SPO2 monitoring for SPO2 goal above 92% #GI:TF - Continue enteral nutrition - Nutrition consulted - Continue PPI and BR #Hypernatremia-improved #Hyperkalemia-improved - Continue FWF - Strict intake and output - Avoid nephrotoxic medications; Renally dose medications - Good in place - Monitor and replace electrolytes as needed -Trend BMP #Elevated D-dimer - Most likely due to COVID - Bilateral lower extremity ultrasounds negative for DVT, superficial thrombus in left gastrocnemius vein - CTA chest shows no gross pulm embolism - H&H stable - Continue AC- Lovenox SubQ - SCDs to BLE while in bed - Transfuse hemoglobin less than 7 - Monitor for signs of bleeding #Sepsis #COVID Pneumonia #Leukocytosis #Lactic Acidosis- Resolved - COVID PCR positive - UA neg, Blood cultures and Sputum culture NGTD - Infectious disease consulted, appreciate recommendation - S/p Actemra 03/10/2021 - Continue IV remdesivir for 5 days - Dexamethasone x10 days - repeat Sputum culture and Bculture pending - Continue IV ABx per ID - Monitor WBC and temperature curve - Trend CBC #Endo:Hyperglycemia #h/o DM - Patient on IV steroids - Continue high dose SSI Q6hrs - Additional Short acting insulin Q6hrs - Basal insulin increased to BID The high probability of a clinically significant, sudden or life threatening det erioration of the [multi] system(s) required my full and direct attention, intervention and personal management. The aggregate critical care time was [60] minutes. This time is in addition to time spent performing reported procedures but includes the following: [x] Data Review and interpretation [x] Patient assessment and monitoring of vital signs [x] Documentation [x] Medication orders and management Disposition Plan: ICU Total Time Spent with Patient (Minutes): 60 History Interval history: Patient seen and examined at the bedside. Remains intubated and on sedation. Still with periods of agitation, not following commands. Hospitalist Physical - Constitutional Vitals: Temp Pulse Resp BP Pulse Ox 98.5 F 121 H 25 H 172/83 91 03/19/21 07:10 03/19/21 10:29 03/19/21 10:29 03/19/21 09:00 03/19/21 09:00 General appearance: Present: no acute distress, well-nourished, obese, other (Intubated and sedated) - EENT Eyes: Present: PERRL - Respiratory Respiratory effort: normal Respiratory: bilateral: rhonchi - Cardiovascular Rhythm: regular Heart Sounds: Present: S1 & S2 - Extremities Extremities: no ischemia, pulses intact, pulses symmetrical Extremity abnormal: edema - Peripheral Assessment Generalized Edema Type: Non-pitting Edema Degree: 1+ Capillary Refill: < 3 seconds Skin Temperature: Warm Peripheral Pulses: within normal limits - Abdominal General gastrointestinal: soft, non-distended, normal bowel sounds - Integumentary Integumentary: Present: warm, dry - Psychiatric Psychiatric: other (Intubated and sedated) - Neurologic Neurologic: other (Intubated and sedated) - Allied Health Allied health notes reviewed: nursing Results - Labs CBC & Chem 7: 03/19/21 04:20 03/19/21 04:20 Labs: Laboratory Last Values WBC 14.0 K/mm3 (4.5-11.0) H 03/19/21 04:20 RBC 4.35 M/mm3 (3.65-5.03) 03/19/21 04:20 Hgb 13.0 gm/dl (11.8-15.2) 03/19/21 04:20 Hct 40.8 % (35.5-45.6) 03/19/21 04:20 MCV 94 fl (84-94) 03/19/21 04:20 MCH 30 pg (28-32) 03/19/21 04:20 MCHC 32 % (32-34) 03/19/21 04:20 RDW 14.9 % (13.2-15.2) 03/19/21 04:20 Plt Count 332 K/mm3 (140-440) 03/19/21 04:20 Lymph % (Auto) 12.6 % (13.4-35.0) L 03/17/21 04:40 [place] % (Auto) 11.3 % (0.0-7.3) H 03/17/21 04:40 Eos % (Auto) 0.4 % (0.0-4.3) 03/17/21 04:40 Baso % (Auto) 0.8 % (0.0-1.8) 03/17/21 04:40 Lymph # (Auto) 1.8 K/mm3 (1.2-5.4) 03/17/21 04:40 [place] # (Auto) 1.6 K/mm3 (0.0-0.8) H 03/17/21 04:40 Eos # (Auto) 0.1 K/mm3 (0.0-0.4) 03/17/21 04:40 Baso # (Auto) 0.1 K/mm3 (0.0-0.1) 03/17/21 04:40 Add Manual Diff Complete 03/10/21 04:29 Total Counted 100 03/10/21 04:29 Seg Neutrophils % 74.9 % (40.0-70.0) H 03/17/21 04:40 Seg Neuts % (Manual) 94.0 % (40.0-70.0) H 03/10/21 04:29 Band Neutrophils % 0 % 03/10/21 04:29 Lymphocytes % (Manual) 1.0 % (13.4-35.0) L 03/10/21 04:29 Reactive Lymphs % (Man) 0 % 03/10/21 04:29 Monocytes % (Manual) 5.0 % (0.0-7.3) 03/10/21 04:29 Eosinophils % (Manual) 0 % (0.0-4.3) 03/10/21 04:29 Basophils % (Manual) 0 % (0.0-1.8) 03/10/21 04:29 Metamyelocytes % 0 % 03/10/21 04:29 Myelocytes % 0 % 03/10/21 04:29 Promyelocytes % 0 % 03/10/21 04:29 Blast Cells % 0 % 03/10/21 04:29 Nucleated RBC % 3.0 % (0.0-0.9) H 03/10/21 04:29 Seg Neutrophils # 10.5 K/mm3 (1.8-7.7) H 03/17/21 04:40 Seg Neutrophils # Man 19.4 K/mm3 (1.8-7.7) H 03/10/21 04:29 Band Neutrophils # 0.0 K/mm3 03/10/21 04:29 Lymphocytes # (Manual) 0.2 K/mm3 (1.2-5.4) L 03/10/21 04:29 Abs React Lymphs (Man) 0.0 K/mm3 03/10/21 04:29 Monocytes # (Manual) 1.0 K/mm3 (0.0-0.8) H 03/10/21 04:29 Eosinophils # (Manual) 0.0 K/mm3 (0.0-0.4) 03/10/21 04:29 Basophils # (Manual) 0.0 K/mm3 (0.0-0.1) 03/10/21 04:29 Metamyelocytes # 0.0 K/mm3 03/10/21 04:29 Myelocytes # 0.0 K/mm3 03/10/21 04:29 Promyelocytes # 0.0 K/mm3 03/10/21 04:29 Blast Cells # 0.0 K/mm3 03/10/21 04:29 WBC Morphology Not Reportable 03/10/21 04:29 Hypersegmented Neuts Not Reportable 03/10/21 04:29 Hyposegmented Neuts Not Reportable 03/10/21 04:29 Hypogranular Neuts Not Reportable 03/10/21 04:29 Smudge Cells Not Reportable 03/10/21 04:29 Toxic Granulation Not Reportable 03/10/21 04:29 Toxic Vacuolation Not Reportable 03/10/21 04:29 Dohle Bodies Not Reportable 03/10/21 04:29 Pelger-Huet Anomaly Not Reportable 03/10/21 04:29 Mely Rods Not Reportable 03/10/21 04:29 Platelet Estimate Consistent w auto 03/10/21 04:29 Clumped Platelets Not Reportable 03/10/21 04:29 Plt Clumps, EDTA Not Reportable 03/10/21 04:29 Large Platelets Not Reportable 03/10/21 04:29 Giant Platelets Not Reportable 03/10/21 04:29 Platelet Satelliting Not Reportable 03/10/21 04:29 Plt Morphology Comment Not Reportable 03/10/21 04:29 RBC Morphology Normal 03/10/21 04:29 Dimorphic RBCs Not Reportable 03/10/21 04:29 Polychromasia Not Reportable 03/10/21 04:29 Hypochromasia Not Reportable 03/10/21 04:29 Poikilocytosis Not Reportable 03/10/21 04:29 Anisocytosis Not Reportable 03/10/21 04:29 Microcytosis Not Reportable 03/10/21 04:29 Macrocytosis Not Reportable 03/10/21 04:29 Spherocytes Not Reportable 03/10/21 04:29 Pappenheimer Bodies Not Reportable 03/10/21 04:29 Sickle Cells Not Reportable 03/10/21 04:29 Target Cells Not Reportable 03/10/21 04:29 Tear Drop Cells Not Reportable 03/10/21 04:29 Ovalocytes Not Reportable 03/10/21 04:29 Helmet Cells Not Reportable 03/10/21 04:29 Longo-Tenaha Bodies Not Reportable 03/10/21 04:29 [place] Rings Not Reportable 03/10/21 04:29 Paige Cells Not Reportable 03/10/21 04:29 Bite Cells Not Reportable 03/10/21 04:29 Crenated Cell Not Reportable 03/10/21 04:29 Elliptocytes Not Reportable 03/10/21 04:29 Acanthocytes (Spur) Not Reportable 03/10/21 04:29 Rouleaux Not Reportable 03/10/21 04:29 Hemoglobin C Crystals Not Reportable 03/10/21 04:29 Schistocytes Not Reportable 03/10/21 04:29 Malaria parasites Not Reportable 03/10/21 04:29 Shaheen Bodies Not Reportable 03/10/21 04:29 Hem Pathologist Commnt No 03/10/21 04:29 PT 16.1 Sec. (12.2-14.9) H 03/08/21 20:24 INR 1.17 (0.87-1.13) H 03/08/21 20:24 APTT 28.0 Sec. (24.2-36.6) 03/08/21 20:24 D-Dimer 1359.12 ng/mlDDU (0-234) H 03/17/21 04:40 ABG pH 7.373 pH Units (7.350-7.450) 03/19/21 02:35 POC ABG pCO2 71.9 mmHg (32.0-48.0) H 03/12/21 21:54 ABG pCO2 56.1 mm Hg 03/19/21 02:35 POC ABG pO2 53.6 mmHg (83-108) L 03/12/21 21:54 ABG pO2 83.5 mm Hg (80.0-90.0) 03/19/21 02:35 POC ABG HCO3 30.0 03/12/21 21:54 ABG HCO3 32.0 mmol/L (20.0-26.0) H 03/19/21 02:35 ABG O2 Saturation 96.5 % (95.0-99.0) 03/19/21 02:35 ABG O2 Content 18.1 (0.0-44) 03/19/21 02:35 POC ABG Base Excess 0.5 03/12/21 21:54 ABG Base Excess 5.2 mmol/L (-2.0-3.0) H 03/19/21 02:35 ABG Hemoglobin 13.6 gm/dl (14.0-18.0) L 03/19/21 02:35 ABG Oxyhemoglobin 84.8 (94-98) L 03/12/21 21:54 ABG Carboxyhemoglobin 1.3 % (0.0-5.0) 03/19/21 02:35 ABG Methemoglobin 0.6 % (0.0-1.5) 03/19/21 02:35 ABG Sodium 134.2 mmol/L (136.0-145.0) L 03/12/21 21:54 ABG Potassium 4.9 mmol/L (3.40-4.50) H 03/12/21 21:54 ABG Chloride 99.0 mmol/L (98-107) 03/12/21 21:54 ABG Glucose 306 mg/dL (65-95) H 03/12/21 21:54 Oxyhemoglobin 94.6 % (95.0-99.0) L 03/19/21 02:35 Carboxyhemoglobin 0.6 (0.5-1.5) 03/12/21 21:54 FiO2 50 % 03/19/21 02:35 FiO2 % 50.0 03/12/21 21:54 Sodium 146 mmol/L (137-145) H 03/19/21 04:20 Potassium 5.0 mmol/L (3.6-5.0) 03/19/21 04:20 Chloride 109.3 mmol/L (98-107) H 03/19/21 04:20 Carbon Dioxide 27 mmol/L (22-30) D 03/19/21 04:20 Anion Gap 15 mmol/L 03/19/21 04:20 BUN 36 mg/dL (9-20) H 03/19/21 04:20 Creatinine 0.8 mg/dL (0.8-1.3) 03/19/21 04:20 Estimated GFR > 60 ml/min 03/19/21 04:20 BUN/Creatinine Ratio 45 % 03/19/21 04:20 Glucose 203 mg/dL (75-100) H 03/19/21 04:20 POC Glucose 164 mg/dL (70-105) H 03/19/21 05:45 Lactic Acid 1.90 mmol/L (0.7-2.0) 03/08/21 23:51 Calcium 8.5 mg/dL (8.4-10.2) 03/19/21 04:20 Phosphorus 4.80 mg/dL (2.5-4.5) H D 03/15/21 06:06 Magnesium 2.70 mg/dL (1.7-2.3) H 03/17/21 04:40 Ferritin 976.4 ng/mL (30.0-300.0) H 03/15/21 04:00 Total Bilirubin 0.20 mg/dL (0.1-1.2) 03/12/21 08:03 AST 10 units/L (5-40) 03/12/21 08:03 ALT 16 units/L (7-56) 03/12/21 08:03 Alkaline Phosphatase 77 units/L (35-129) 03/12/21 08:03 Lactate Dehydrogenase 630 units/L (91-180) H 03/15/21 06:06 C-Reactive Protein 0.40 mg/dL (0.00-1.30) 03/17/21 04:40 NT-Pro-B Natriuret Pep 1053 pg/mL (0-900) H 03/08/21 20:24 Total Protein 6.0 g/dL (6.3-8.2) L 03/12/21 08:03 Albumin 2.9 g/dL (3.9-5) L 03/12/21 08:03 Albumin/Globulin Ratio 0.9 % 03/12/21 08:03 Triglycerides 254 mg/dL (2-149) H 03/19/21 04:20 Procalcitonin 0.05 ng/mL (<0.15) 03/17/21 04:40 Arterial Blood Glucose 306 mg/dL (65-95) H 03/12/21 21:54 Arterial Blood Ionized Calcium 5.0 mg/dL (4.6-5.3) 03/12/21 21:54 Urine Color Yellow (Yellow) 03/09/21 04:10 Urine Turbidity Slightly-cloudy (Clear) 03/09/21 04:10 Urine pH 5.0 (5.0-7.0) 03/09/21 04:10 Ur Specific [place] 1.041 (1.003-1.030) H 03/09/21 04:10 Urine Protein 100 mg/dl mg/dL (Negative) 03/09/21 04:10 Urine Glucose (UA) Neg mg/dL (Negative) 03/09/21 04:10 Urine Ketones Neg mg/dL (Negative) 03/09/21 04:10 Urine Blood Mod (Negative) 03/09/21 04:10 Urine Nitrite Neg (Negative) 03/09/21 04:10 Urine Bilirubin Neg (Negative) 03/09/21 04:10 Urine Urobilinogen 2.0 mg/dL (<2.0) 03/09/21 04:10 Ur Leukocyte Esterase Neg (Negative) 03/09/21 04:10 Urine WBC (Auto) 4.0 /HPF (0.0-6.0) 03/09/21 04:10 Urine RBC (Auto) 1.0 /HPF (0.0-6.0) 03/09/21 04:10 Urine Bacteria (Auto) 1+ /HPF (Negative) 03/09/21 04:10 Urine Mucus Few /HPF 03/09/21 04:10 Coronavirus (PCR) Positive (Negative) A 03/09/21 08:00 Microbiology: Microbiology 03/16/21 13:51 Peripheral/Venous Blood Culture - Preliminary NO GROWTH AFTER 48 HOURS 03/16/21 13:51 Peripheral/Venous Blood Culture - Preliminary NO GROWTH AFTER 48 HOURS 03/17/21 14:27 Tracheal Aspirate Sputum Culture - Preliminary Gram Negative Kalia Good/IV: Voiding Method Indwelling Catheter Active Medications - Current Medications Current Medications: Generic Name Dose Route Start Last Admin Trade Name Freq PRN Reason Stop Dose Admin Acetaminophen 650 mg 03/09/21 01:26 03/17/21 12:08 Acetaminophen 325 Mg Tab PO 650 mg Q4H PRN Administration Pain MILD(1-3)/Fever >100.5/RAYO Albuterol 2.5 mg 03/09/21 01:26 03/18/21 21:06 Albuterol 2.5 Mg/3 Ml Nebu IH 2.5 mg Q4HRT PRN Administration Shortness Of Breath Albuterol/Ipratropium 1 ampul 03/11/21 08:00 03/19/21 10:29 Ipratropium/Albuterol Sulfate 3 Ml Ampul.Neb IH 1 ampul TIDRT BLANCA Administration Arformoterol Tartrate 15 mcg 03/11/21 20:00 03/19/21 10:29 Arformoterol 15 Mcg/2 Ml Nebu IH 15 mcg Q12HRT BLANCA Administration Ascorbic Acid 500 mg 03/10/21 14:00 03/19/21 09:51 Ascorbic Acid 500 Mg Tab PO 500 mg BID [facility] Administration Budesonide 0.25 mg 03/11/21 20:00 03/19/21 10:29 Budesonide 0.25 Mg/2 Ml Nebu IH 0.25 mg Q12HRT [facility] Administration Dextrose 0 ml 03/09/21 01:26 Dextrose 50% In Water (25gm) 50 Ml Syringe IV Q30MIN PRN Hypoglycemia Protocol Enoxaparin Sodium 100 mg 03/09/21 10:00 03/19/21 09:51 Enoxaparin 100 Mg/1 Ml Inj SUB-Q 100 mg Q12HR [facility] Administration Protocol Famotidine 20 mg 03/12/21 22:00 03/19/21 09:51 Famotidine 20 Mg Tab FEEDTUBE 20 mg BID [facility] Administration Fentanyl 50 mcg 03/10/21 16:47 03/19/21 01:23 Fentanyl 100 Mcg/2 Ml Inj IV 50 mcg Q10MIN PRN Administration ANALGESIA Hydralazine HCl 10 mg 03/09/21 01:36 03/18/21 17:04 Hydralazine 20 Mg/1 Ml Inj IV 10 mg Q6H PRN Administration Blood Pressure Hydralazine HCl 50 mg 03/11/21 17:00 03/19/21 06:00 Hydralazine 25 Mg Tab PO Not Given Q8HR [facility] Hydrophilic Ointment 1 applic 03/10/21 15:39 Lip Therapy Vaseline TP Q2HR PRN Dry Lips Fentanyl Citrate 2,000 mcg in 100 mls @ 5.897 mls/hr 03/10/21 17:00 03/19/21 08:30 Fentanyl Drip Premix IV 4 mcg/kg/hr TITR BLANCA 23.587 mls/hr Administration Protocol 1 MCG/KG/HR Propofol 1,000 mg in 100 mls @ 3.507 mls/hr 03/11/21 17:00 03/19/21 09:50 Diprivan 10 Mg/Ml IV 50 mcg/kg/min TITR BLANCA 35.07 mls/hr Administration Protocol 5 MCG/KG/MIN Vancomycin HCl 1,750 mg/ 535 mls @ 333 mls/hr 03/16/21 22:00 03/19/21 09:50 Sodium Chloride IV 333 mls/hr Q12HR [facility] Administration Protocol Cefepime HCl 2 gm in 100 mls @ 200 mls/hr 03/16/21 17:00 03/19/21 06:03 Cefepime/Ns 2 Gm/100 Ml IV 200 mls/hr Q8HR [facility] Administration Protocol Insulin Glargine 25 units 03/14/21 10:00 03/19/21 09:50 Insulin Glargine 100 Units/Ml SUB-Q 25 units BID [facility] Administration Insulin Human Lispro 0 unit 03/11/21 18:00 03/19/21 06:00 Insulin Lispro 100 Unit/Ml SUB-Q 3 unit Q6HR [facility] Administration Protocol Insulin Human Regular 5 units 03/14/21 12:00 03/19/21 05:59 Insulin Regular, Human 100 Units/1 Ml SUB-Q Not Given Q6HR [facility] Labetalol HCl 10 mg 03/12/21 21:13 03/18/21 16:56 Labetalol 20 Mg/4 Ml Inj IV 10 mg Q6H PRN Administration Blood Pressure Methylprednisolone Sodium Succinate 60 mg 03/10/21 22:00 03/19/21 06:03 Methylprednisolone Sod Succinate 125 Mg/2 Ml Inj IV 03/20/21 14:01 60 mg Q8HR [facility] Administration Midazolam HCl 2 mg 03/15/21 08:49 03/18/21 16:57 Midazolam 2 Mg/2 Ml Inj IV 2 mg Q2H PRN Administration VENT SYNCHRONY Multi-Ingred Cream/Lotion/Oil/Oint 1 applic 03/10/21 15:39 Mineral Oil/Petrolatum, White Ophth Oint 3.5 Gm OU Q4HR PRN Dry Eye(s) Ondansetron HCl 4 mg 03/09/21 01:26 Ondansetron 4 Mg/2 Ml Inj IV Q8H PRN Nausea And Vomiting Quetiapine Fumarate 100 mg 03/17/21 14:00 03/19/21 09:51 Quetiapine 100 Mg Tab PO 100 mg BID [facility] Administration Senna/Docusate Sodium 1 tab 03/10/21 22:00 03/19/21 09:51 Sennosides/Docusate Sodium 8.6/50 Mg Tab FEEDTUBE 1 tab BID [facility] Administration Sodium Chloride 10 ml 03/09/21 10:00 03/19/21 09:51 Sodium Chloride 0.9% 10 Ml Flush Syringe IV 10 ml BID [facility] Administration Sodium Chloride 10 ml 03/09/21 01:26 Sodium Chloride 0.9% 10 Ml Flush Syringe IV PRN PRN LINE FLUSH Zinc Sulfate 220 mg 03/10/21 14:00 03/19/21 09:51 Zinc Sulfate 220 Mg Cap PO 220 mg BID [facility] Administration Nutrition/Malnutrition Assess - Dietary Evaluation Nutrition/Malnutrition Findings: Nutrition Notes Start: 03/09/21 08:49 Freq: Status: Active Protocol: Document 03/17/21 15:48 NHALL (Rec: 03/17/21 15:55 NHALL [id number]) Nutrition Notes Initial or Follow up Reassessment Current Diagnosis Diabetes,Sepsis,Hypertension, Respiratory Failure Other Pertinent Diagnosis COVID-19 pneu Current Diet TF-Glucerna 1.2 [place] at 66 ml/ hr Labs/Tests POC Glu range: 162-263 Na 148 BUN 42 BG 183 Mg 2.7 Pertinent Medications Propofol at 31.563ml/hr ( provides 833 kcal) Height 5 ft 11 in Weight 117 kg [place] Body Weight (kg) 78.18 BMI 35.9 Weight Status Obese Subjective/Other Information Pt remains on vent support. Pt receiving a lot of calories from propofol at this time. Will decrease TF rate to prevent overfeeding. Pt with a low-grade fever. Burn Absent Trauma Absent Minimum of two criteria No #1 Nutrition Diagnosis Inadequate oral intake Diagnosis Progress(for reassessment Continues documentation) Is patient on ventilator? Yes Is Patient Ambulatory and/or Out of Bed No REE-([facility]-confined to bed) [phone] Calculation Used for Recommendations 70-80% energy needs Additional Notes Energy needs: 5610-3442 kcal/ day Pro needs 1.3g/kg adjBW: 127g/ day Fluid needs 1ml/kcal Nutrition Intervention Nutrition Support: Decrease TF rate to Glucerna 1 .2 at 40ml/hr with 200ml water flush q4h (until hypernatremia resolved). TF + propofol will provide 1985 kcal. Kcal 1,152 Protein (gm) 58 Carbohydrates (gm) 110 Fat (gm) 58 Fluid (mL) 773 Fiber (gm) 15 Goal #1 TF tolerance Goal #2 TF to meet nutrient needs as best possible Follow-Up By: 03/20/21 Additional Comments F/U: TF rate/tolerance, propofol rate, vent status <ARABELLA CASTILLO - Last Filed: 03/20/21 07:17> Assessment and Plan Assessment and plan: I saw and evaluated the patient. I agree with the findings and the plan of care as documented in the Nurse Practitioner's~note, with the following corrections and additions. Hospitalist Physical - Constitutional Vitals: Temp Pulse Resp BP Pulse Ox 98.9 F 102 H 21 189/88 93 03/20/21 04:00 03/20/21 06:24 03/20/21 06:15 03/20/21 06:24 03/20/21 06:15 Results - Labs CBC & Chem 7: 03/20/21 04:45 03/20/21 04:45 Labs: Laboratory Last Values WBC 9.8 K/mm3 (4.5-11.0) 03/20/21 04:45 RBC 4.01 M/mm3 (3.65-5.03) 03/20/21 04:45 Hgb 12.0 gm/dl (11.8-15.2) 03/20/21 04:45 Hct 37.9 % (35.5-45.6) 03/20/21 04:45 MCV 95 fl (84-94) H 03/20/21 04:45 MCH 30 pg (28-32) 03/20/21 04:45 MCHC 32 % (32-34) 03/20/21 04:45 RDW 15.7 % (13.2-15.2) H 03/20/21 04:45 Plt Count 259 K/mm3 (140-440) 03/20/21 04:45 Lymph % (Auto) 12.6 % (13.4-35.0) L 03/17/21 04:40 [place] % (Auto) 11.3 % (0.0-7.3) H 03/17/21 04:40 Eos % (Auto) 0.4 % (0.0-4.3) 03/17/21 04:40 Baso % (Auto) 0.8 % (0.0-1.8) 03/17/21 04:40 Lymph # (Auto) 1.8 K/mm3 (1.2-5.4) 03/17/21 04:40 [place] # (Auto) 1.6 K/mm3 (0.0-0.8) H 03/17/21 04:40 Eos # (Auto) 0.1 K/mm3 (0.0-0.4) 03/17/21 04:40 Baso # (Auto) 0.1 K/mm3 (0.0-0.1) 03/17/21 04:40 Add Manual Diff Complete 03/10/21 04:29 Total Counted 100 03/10/21 04:29 Seg Neutrophils % 74.9 % (40.0-70.0) H 03/17/21 04:40 Seg Neuts % (Manual) 94.0 % (40.0-70.0) H 03/10/21 04:29 Band Neutrophils % 0 % 03/10/21 04:29 Lymphocytes % (Manual) 1.0 % (13.4-35.0) L 03/10/21 04:29 Reactive Lymphs % (Man) 0 % 03/10/21 04:29 Monocytes % (Manual) 5.0 % (0.0-7.3) 03/10/21 04:29 Eosinophils % (Manual) 0 % (0.0-4.3) 03/10/21 04:29 Basophils % (Manual) 0 % (0.0-1.8) 03/10/21 04:29 Metamyelocytes % 0 % 03/10/21 04:29 Myelocytes % 0 % 03/10/21 04:29 Promyelocytes % 0 % 03/10/21 04:29 Blast Cells % 0 % 03/10/21 04:29 Nucleated RBC % 3.0 % (0.0-0.9) H 03/10/21 04:29 Seg Neutrophils # 10.5 K/mm3 (1.8-7.7) H 03/17/21 04:40 Seg Neutrophils # Man 19.4 K/mm3 (1.8-7.7) H 03/10/21 04:29 Band Neutrophils # 0.0 K/mm3 03/10/21 04:29 Lymphocytes # (Manual) 0.2 K/mm3 (1.2-5.4) L 03/10/21 04:29 Abs React Lymphs (Man) 0.0 K/mm3 03/10/21 04:29 Monocytes # (Manual) 1.0 K/mm3 (0.0-0.8) H 03/10/21 04:29 Eosinophils # (Manual) 0.0 K/mm3 (0.0-0.4) 03/10/21 04:29 Basophils # (Manual) 0.0 K/mm3 (0.0-0.1) 03/10/21 04:29 Metamyelocytes # 0.0 K/mm3 03/10/21 04:29 Myelocytes # 0.0 K/mm3 03/10/21 04:29 Promyelocytes # 0.0 K/mm3 03/10/21 04:29 Blast Cells # 0.0 K/mm3 03/10/21 04:29 WBC Morphology Not Reportable 03/10/21 04:29 Hypersegmented Neuts Not Reportable 03/10/21 04:29 Hyposegmented Neuts Not Reportable 03/10/21 04:29 Hypogranular Neuts Not Reportable 03/10/21 04:29 Smudge Cells Not Reportable 03/10/21 04:29 Toxic Granulation Not Reportable 03/10/21 04:29 Toxic Vacuolation Not Reportable 03/10/21 04:29 Dohle Bodies Not Reportable 03/10/21 04:29 Pelger-Huet Anomaly Not Reportable 03/10/21 04:29 Mely Rods Not Reportable 03/10/21 04:29 Platelet Estimate Consistent w auto 03/10/21 04:29 Clumped Platelets Not Reportable 03/10/21 04:29 Plt Clumps, EDTA Not Reportable 03/10/21 04:29 Large Platelets Not Reportable 03/10/21 04:29 Giant Platelets Not Reportable 03/10/21 04:29 Platelet Satelliting Not Reportable 03/10/21 04:29 Plt Morphology Comment Not Reportable 03/10/21 04:29 RBC Morphology Normal 03/10/21 04:29 Dimorphic RBCs Not Reportable 03/10/21 04:29 Polychromasia Not Reportable 03/10/21 04:29 Hypochromasia Not Reportable 03/10/21 04:29 Poikilocytosis Not Reportable 03/10/21 04:29 Anisocytosis Not Reportable 03/10/21 04:29 Microcytosis Not Reportable 03/10/21 04:29 Macrocytosis Not Reportable 03/10/21 04:29 Spherocytes Not Reportable 03/10/21 04:29 Pappenheimer Bodies Not Reportable 03/10/21 04:29 Sickle Cells Not Reportable 03/10/21 04:29 Target Cells Not Reportable 03/10/21 04:29 Tear Drop Cells Not Reportable 03/10/21 04:29 Ovalocytes Not Reportable 03/10/21 04:29 Helmet Cells Not Reportable 03/10/21 04:29 [place] Bodies Not Reportable 03/10/21 04:29 [place] Rings Not Reportable 03/10/21 04:29 Shama Cells Not Reportable 03/10/21 04:29 Bite Cells Not Reportable 03/10/21 04:29 Crenated Cell Not Reportable 03/10/21 04:29 Elliptocytes Not Reportable 03/10/21 04:29 Acanthocytes (Spur) Not Reportable 03/10/21 04:29 Rouleaux Not Reportable 03/10/21 04:29 Hemoglobin C Crystals Not Reportable 03/10/21 04:29 Schistocytes Not Reportable 03/10/21 04:29 Malaria parasites Not Reportable 03/10/21 04:29 Shaheen Bodies Not Reportable 03/10/21 04:29 Hem Pathologist Commnt No 03/10/21 04:29 PT 16.1 Sec. (12.2-14.9) H 03/08/21 20:24 INR 1.17 (0.87-1.13) H 03/08/21 20:24 APTT 28.0 Sec. (24.2-36.6) 03/08/21 20:24 D-Dimer 1359.12 ng/mlDDU (0-234) H 03/17/21 04:40 ABG pH 7.349 pH Units (7.350-7.450) L 03/20/21 03:29 POC ABG pCO2 71.9 mmHg (32.0-48.0) H 03/12/21 21:54 ABG pCO2 62.6 mm Hg 03/20/21 03:29 POC ABG pO2 53.6 mmHg (83-108) L 03/12/21 21:54 ABG pO2 83.9 mm Hg (80.0-90.0) 03/20/21 03:29 POC ABG HCO3 30.0 03/12/21 21:54 ABG HCO3 33.7 mmol/L (20.0-26.0) H 03/20/21 03:29 ABG O2 Saturation 95.8 % (95.0-99.0) 03/20/21 03:29 ABG O2 Content 15.7 (0.0-44) 03/20/21 03:29 POC ABG Base Excess 0.5 03/12/21 21:54 ABG Base Excess 6.4 mmol/L (-2.0-3.0) H 03/20/21 03:29 ABG Hemoglobin 11.8 gm/dl (14.0-18.0) L 03/20/21 03:29 ABG Oxyhemoglobin 84.8 (94-98) L 03/12/21 21:54 ABG Carboxyhemoglobin 1.3 % (0.0-5.0) 03/20/21 03:29 ABG Methemoglobin 0.6 % (0.0-1.5) 03/20/21 03:29 ABG Sodium 134.2 mmol/L (136.0-145.0) L 03/12/21 21:54 ABG Potassium 4.9 mmol/L (3.40-4.50) H 03/12/21 21:54 ABG Chloride 99.0 mmol/L (98-107) 03/12/21 21:54 ABG Glucose 306 mg/dL (65-95) H 03/12/21 21:54 Oxyhemoglobin 93.9 % (95.0-99.0) L 03/20/21 03:29 Carboxyhemoglobin 0.6 (0.5-1.5) 03/12/21 21:54 FiO2 45 % 03/20/21 03:29 FiO2 % 50.0 03/12/21 21:54 Sodium 146 mmol/L (137-145) H 03/20/21 04:45 Potassium 5.5 mmol/L (3.6-5.0) H 03/20/21 04:45 Chloride 111.1 mmol/L (98-107) H 03/20/21 04:45 Carbon Dioxide 27 mmol/L (22-30) 03/20/21 04:45 Anion Gap 13 mmol/L 03/20/21 04:45 BUN 34 mg/dL (9-20) H 03/20/21 04:45 Creatinine 0.7 mg/dL (0.8-1.3) L 03/20/21 04:45 Estimated GFR > 60 ml/min 03/20/21 04:45 BUN/Creatinine Ratio 49 % 03/20/21 04:45 Glucose 145 mg/dL (75-100) H 03/20/21 04:45 POC Glucose 108 mg/dL (70-105) H 03/20/21 05:41 Lactic Acid 1.90 mmol/L (0.7-2.0) 03/08/21 23:51 Calcium 8.5 mg/dL (8.4-10.2) 03/20/21 04:45 Phosphorus 4.10 mg/dL (2.5-4.5) 03/20/21 04:45 Magnesium 2.50 mg/dL (1.7-2.3) H 03/20/21 04:45 Ferritin 976.4 ng/mL (30.0-300.0) H 03/15/21 04:00 Total Bilirubin 0.20 mg/dL (0.1-1.2) 03/12/21 08:03 AST 10 units/L (5-40) 03/12/21 08:03 ALT 16 units/L (7-56) 03/12/21 08:03 Alkaline Phosphatase 77 units/L (35-129) 03/12/21 08:03 Lactate Dehydrogenase 630 units/L (91-180) H 03/15/21 06:06 C-Reactive Protein 0.40 mg/dL (0.00-1.30) 03/17/21 04:40 NT-Pro-B Natriuret Pep 1053 pg/mL (0-900) H 03/08/21 20:24 Total Protein 6.0 g/dL (6.3-8.2) L 03/12/21 08:03 Albumin 2.9 g/dL (3.9-5) L 03/12/21 08:03 Albumin/Globulin Ratio 0.9 % 03/12/21 08:03 Triglycerides 254 mg/dL (2-149) H 03/19/21 04:20 Procalcitonin 0.05 ng/mL (<0.15) 03/17/21 04:40 Arterial Blood Glucose 306 mg/dL (65-95) H 03/12/21 21:54 Arterial Blood Ionized Calcium 5.0 mg/dL (4.6-5.3) 03/12/21 21:54 Urine Color Yellow (Yellow) 03/09/21 04:10 Urine Turbidity Slightly-cloudy (Clear) 03/09/21 04:10 Urine pH 5.0 (5.0-7.0) 03/09/21 04:10 Ur Specific [place] 1.041 (1.003-1.030) H 03/09/21 04:10 Urine Protein 100 mg/dl mg/dL (Negative) 03/09/21 04:10 Urine Glucose (UA) Neg mg/dL (Negative) 03/09/21 04:10 Urine Ketones Neg mg/dL (Negative) 03/09/21 04:10 Urine Blood Mod (Negative) 03/09/21 04:10 Urine Nitrite Neg (Negative) 03/09/21 04:10 Urine Bilirubin Neg (Negative) 03/09/21 04:10 Urine Urobilinogen 2.0 mg/dL (<2.0) 03/09/21 04:10 Ur Leukocyte Esterase Neg (Negative) 03/09/21 04:10 Urine WBC (Auto) 4.0 /HPF (0.0-6.0) 03/09/21 04:10 Urine RBC (Auto) 1.0 /HPF (0.0-6.0) 03/09/21 04:10 Urine Bacteria (Auto) 1+ /HPF (Negative) 03/09/21 04:10 Urine Mucus Few /HPF 03/09/21 04:10 Coronavirus (PCR) Positive (Negative) A 03/09/21 08:00 Microbiology: Microbiology 03/16/21 13:51 Peripheral/Venous Blood Culture - Preliminary NO GROWTH AFTER 72 HOURS 03/16/21 13:51 Peripheral/Venous Blood Culture - Preliminary NO GROWTH AFTER 72 HOURS 03/17/21 14:27 Tracheal Aspirate Sputum Culture - Preliminary Gram Negative Kalia Good/IV: Voiding Method Indwelling Catheter Active Medications - Current Medications Current Medications: Generic Name Dose Route Start Last Admin Trade Name Freq PRN Reason Stop Dose Admin Acetaminophen 650 mg 03/09/21 01:26 03/17/21 12:08 Acetaminophen 325 Mg Tab PO 650 mg Q4H PRN Administration Pain MILD(1-3)/Fever >100.5/RAYO Albuterol 2.5 mg 03/09/21 01:26 03/18/21 21:06 Albuterol 2.5 Mg/3 Ml Nebu IH 2.5 mg Q4HRT PRN Administration Shortness Of Breath Albuterol/Ipratropium 1 ampul 03/11/21 08:00 03/19/21 20:27 Ipratropium/Albuterol Sulfate 3 Ml Ampul.Neb IH 1 ampul TIDRT BLANCA Administration Arformoterol Tartrate 15 mcg 03/11/21 20:00 03/19/21 20:27 Arformoterol 15 Mcg/2 Ml Nebu IH 15 mcg Q12HRT BLANCA Administration Ascorbic Acid 500 mg 03/10/21 14:00 03/19/21 21:03 Ascorbic Acid 500 Mg Tab PO 500 mg BID BLANCA Administration Budesonide 0.25 mg 03/11/21 20:00 03/19/21 20:28 Budesonide 0.25 Mg/2 Ml Nebu IH Not Given Q12HRT BLANCA Dextrose 0 ml 03/09/21 01:26 Dextrose 50% In Water (25gm) 50 Ml Syringe IV Q30MIN PRN Hypoglycemia Protocol Enoxaparin Sodium 100 mg 03/09/21 10:00 03/19/21 21:02 Enoxaparin 100 Mg/1 Ml Inj SUB-Q 100 mg Q12HR BLANCA Administration Protocol Famotidine 20 mg 03/12/21 22:00 03/19/21 21:02 Famotidine 20 Mg Tab FEEDTUBE 20 mg BID BLANCA Administration Fentanyl 50 mcg 03/10/21 16:47 03/19/21 01:23 Fentanyl 100 Mcg/2 Ml Inj IV 50 mcg Q10MIN PRN Administration ANALGESIA Hydralazine HCl 10 mg 03/09/21 01:36 03/18/21 17:04 Hydralazine 20 Mg/1 Ml Inj IV 10 mg Q6H PRN Administration Blood Pressure Hydralazine HCl 50 mg 03/11/21 17:00 01/24/22 06:24 Hydralazine 25 Mg Tab PO 50 mg Q8HR [facility] Administration Hydrophilic Ointment 1 applic 03/10/21 15:39 Lip Therapy Vaseline TP Q2HR PRN Dry Lips Fentanyl Citrate 2,000 mcg in 100 mls @ 5.897 mls/hr 03/10/21 17:00 03/20/21 03:35 Fentanyl Drip Premix IV 4 mcg/kg/hr TITR BLANCA 23.587 mls/hr Administration Protocol 1 MCG/KG/HR Propofol 1,000 mg in 100 mls @ 3.507 mls/hr 03/11/21 17:00 03/20/21 04:30 Diprivan 10 Mg/Ml IV 45 mcg/kg/min TITR BLANCA 31.563 mls/hr Administration Protocol 5 MCG/KG/MIN Vancomycin HCl 1,750 mg/ 535 mls @ 333 mls/hr 03/16/21 22:00 03/19/21 21:04 Sodium Chloride IV 333 mls/hr Q12HR [facility] Administration Protocol Cefepime HCl 2 gm in 100 mls @ 200 mls/hr 03/16/21 17:00 03/20/21 06:24 Cefepime/Ns 2 Gm/100 Ml IV 200 mls/hr Q8HR [facility] Administration Protocol Insulin Glargine 25 units 03/14/21 10:00 03/19/21 21:02 Insulin Glargine 100 Units/Ml SUB-Q 25 units BID BLANCA Administration Insulin Human Lispro 0 unit 03/11/21 18:00 03/20/21 06:24 Insulin Lispro 100 Unit/Ml SUB-Q Not Given Q6HR [facility] Protocol Insulin Human Regular 5 units 03/14/21 12:00 03/20/21 06:24 Insulin Regular, Human 100 Units/1 Ml SUB-Q Not Given Q6HR [facility] Labetalol HCl 10 mg 03/12/21 21:13 03/18/21 16:56 Labetalol 20 Mg/4 Ml Inj IV 10 mg Q6H PRN Administration Blood Pressure Methylprednisolone Sodium Succinate 60 mg 03/10/21 22:00 03/20/21 06:16 Methylprednisolone Sod Succinate 125 Mg/2 Ml Inj IV 03/20/21 14:01 60 mg Q8HR [facility] Administration Midazolam HCl 2 mg 03/15/21 08:49 03/20/21 06:15 Midazolam 2 Mg/2 Ml Inj IV 2 mg Q2H PRN Administration VENT SYNCHRONY Multi-Ingred Cream/Lotion/Oil/Oint 1 applic 03/10/21 15:39 Mineral Oil/Petrolatum, White Ophth Oint 3.5 Gm OU Q4HR PRN Dry Eye(s) Ondansetron HCl 4 mg 03/09/21 01:26 Ondansetron 4 Mg/2 Ml Inj IV Q8H PRN Nausea And Vomiting Quetiapine Fumarate 100 mg 03/17/21 14:00 03/19/21 21:03 Quetiapine 100 Mg Tab PO 100 mg BID BLANCA Administration Senna/Docusate Sodium 1 tab 03/10/21 22:00 03/19/21 21:03 Sennosides/Docusate Sodium 8.6/50 Mg Tab FEEDTUBE 1 tab BID BLANCA Administration Sodium Chloride 10 ml 03/09/21 10:00 03/19/21 21:03 Sodium Chloride 0.9% 10 Ml Flush Syringe IV 10 ml BID BLANCA Administration Sodium Chloride 10 ml 03/09/21 01:26 Sodium Chloride 0.9% 10 Ml Flush Syringe IV PRN PRN LINE FLUSH Zinc Sulfate 220 mg 03/10/21 14:00 03/19/21 21:03 Zinc Sulfate 220 Mg Cap PO 220 mg BID BLANCA Administration Nutrition/Malnutrition Assess - Dietary Evaluation Nutrition/Malnutrition Findings: Nutrition Notes Start: 03/09/21 08:49 Freq: Status: Active Protocol: Document 03/17/21 15:48 [facility] (Rec: 03/17/21 15:55 [facility]ALL [id number]) Nutrition Notes Initial or Follow up Reassessment Current Diagnosis Diabetes,Sepsis,Hypertension, Respiratory Failure Other Pertinent Diagnosis COVID-19 pneu Current Diet TF-Glucerna 1.2 [place] at 66 ml/ hr Labs/Tests POC Glu range: 162-263 Na 148 BUN 42 BG 183 Mg 2.7 Pertinent Medications Propofol at 31.563ml/hr ( provides 833 kcal) Height 5 ft 11 in Weight 117 kg [place] Body Weight (kg) 78.18 BMI 35.9 Weight Status Obese Subjective/Other Information Pt remains on vent support. Pt receiving a lot of calories from propofol at this time. Will decrease TF rate to prevent overfeeding. Pt with a low-grade fever. Burn Absent Trauma Absent Minimum of two criteria No #1 Nutrition Diagnosis Inadequate oral intake Diagnosis Progress(for reassessment Continues documentation) Is patient on ventilator? Yes Is Patient Ambulatory and/or Out of Bed No REE-([facility]-confined to bed) [phone] Calculation Used for Recommendations 70-80% energy needs Additional Notes Energy needs: 6912-0631 kcal/ day Pro needs 1.3g/kg adjBW: 127g/ day Fluid needs 1ml/kcal Nutrition Intervention Nutrition Support: Decrease TF rate to Glucerna 1 .2 at 40ml/hr with 200ml water flush q4h (until hypernatremia resolved). TF + propofol will provide 1985 kcal. Kcal 1,152 Protein (gm) 58 Carbohydrates (gm) 110 Fat (gm) 58 Fluid (mL) 773 Fiber (gm) 15 Goal #1 TF tolerance Goal #2 TF to meet nutrient needs as best possible Follow-Up By: 03/20/21 Additional Comments F/U: TF rate/tolerance, propofol rate, vent status
--- NOTE | 2021-03-19 18:54 | Progress Note ---
Assessment and Plan Acute hypoxemic respiratory failure, on MVS COVID-19 infection Bilateral pneumonia Obesity BMI 36 Hypertension Leukocytosis Possible venous thromboembolic phenomena with significantly elevated D-dimers DM II Elevated serum inflammatory markers to include CRP levels, ferritin and LDH Hyperkalemia Antibiotics per ID- Vancomycin and Cefepime Blood culture- NGTD, Tracheal aspirate GNR, awaiting identification of the species Continue Seroquel for agitation management, currently on 100mg BID Continue to monitor QTc while on Serpoquel and Propofol Daily assessment to wean, daily SAT and SBT May need tracheostomy - VAP bundle addressed, aspiration precautions - continue to titrate supplemental oxygen to keep SpO2 88-90% -Lung protective strategies - continue bronchodilators with pulmonary hygiene per RT - continue accuchecks with glycemic control per SSI (While critically ill target blood glucose of 140-180 mg/dL; avoid hypoglycemia) - avoid nephrotoxins, renally dose all medications - avoid benzodiazepines, reduce the possibility of delirium - sedation target for RASS -1 to -2 -On Propofol and Fentanyl - prn analgesia per pain score - Maintenance of sleep-wake cycle, avoid delirium - Stress ulcer prophylaxis -Therapeutic anticoagulation- on Enoxaparin - mobility, off loading and frequent turning per facility protocol for pressure ulcer prevention - Monitor hemodynamics closely - continue other care per attending / other consultants COVID SPECIFIC INTERVENTIONS - s/p Remdesivir per ID/Pulmonary developed protocols - complete systemic steroids for severe COVID-19 infection -Solumedrol - Continue to monitor inflammatory markers per facility protocol - ferritin, Ddimer, CRP - therapeutic anticoagulation per system Protocol based on d-dimer and clinical considerations -on therapeutic enoxaparin - Continue contact and airborne isolation per facility protocol CONDITION: CRITICAL PROGNOSIS: GUARDED CODE STATUS: FULL CODE The high probability of a clinically significant, sudden or life-threatening deterioration of the [respiratory, cardiovascular & hematologic] system(s) required my full and direct attention, intervention and personal management. The aggregate critical care time was [35] minutes without overlap. Time includes spent on; [x] Data Review and interpretation [x] Patient assessment and monitoring of vital signs [x] Documentation [x] Medication orders and management Subjective Date of service: 03/19/21 Principal diagnosis: COVID-19 infection; DM II; Bilateral pneumonia; Obesity; HTN Interval history: Patient is seen today for: Acute hypoxemic respiratory failure; COVID-19 infection; DM II; Bilateral pneumonia; Obesity; HTN Seen and examined at bedside; 24hour events reviewed; nursing and respiratory care staff consulted; no adverse overnight events reported to me; resting in bed; on MVS PEEP +8, FIO2 50%; no emesis or overt aspiration; On Propofol and Fentanyl. On going intermittent fevers Objective Vital Signs - 12hr 03/19/21 03/19/21 03/19/21 07:00 07:10 07:15 Temperature 98.5 F Pulse Rate 103 H 103 H Pulse Rate [ Bilateral Throughout] Pulse Rate [ From Monitor] Pulse Rate [ Left Dorsalis Pedis] Pulse Rate [ Left Radial] Pulse Rate [ Right Dorsalis Pedis] Pulse Rate [ Right Radial] Respiratory 27 H 35 H Rate Respiratory Rate [Bilateral Throughout] Blood Pressure 101/59 90/58 O2 Sat by Pulse 88 95 Oximetry 03/19/21 03/19/21 03/19/21 07:30 07:45 08:00 Temperature Pulse Rate 102 H 103 H 102 H Pulse Rate [ Bilateral Throughout] Pulse Rate [ 102 H From Monitor] Pulse Rate [ 100 H Left Dorsalis Pedis] Pulse Rate [ 100 H Left Radial] Pulse Rate [ 100 H Right Dorsalis Pedis] Pulse Rate [ 100 H Right Radial] Respiratory 28 H 26 H 20 Rate Respiratory Rate [Bilateral Throughout] Blood Pressure 99/63 103/57 172/83 O2 Sat by Pulse 89 88 93 Oximetry 03/19/21 03/19/21 03/19/21 08:15 08:30 08:46 Temperature Pulse Rate 103 H 117 H 118 H Pulse Rate [ Bilateral Throughout] Pulse Rate [ From Monitor] Pulse Rate [ Left Dorsalis Pedis] Pulse Rate [ Left Radial] Pulse Rate [ Right Dorsalis Pedis] Pulse Rate [ Right Radial] Respiratory 14 23 27 H Rate Respiratory Rate [Bilateral Throughout] Blood Pressure 102/63 102/63 172/83 O2 Sat by Pulse 87 92 91 Oximetry 03/19/21 03/19/21 03/19/21 09:00 09:16 09:30 Temperature Pulse Rate 119 H 117 H 116 H Pulse Rate [ Bilateral Throughout] Pulse Rate [ From Monitor] Pulse Rate [ Left Dorsalis Pedis] Pulse Rate [ Left Radial] Pulse Rate [ Right Dorsalis Pedis] Pulse Rate [ Right Radial] Respiratory 27 H 26 H 22 Rate Respiratory Rate [Bilateral Throughout] Blood Pressure 172/83 172/83 172/83 O2 Sat by Pulse 91 91 92 Oximetry 03/19/21 03/19/21 03/19/21 09:46 10:00 10:16 Temperature Pulse Rate 117 H 116 H 121 H Pulse Rate [ Bilateral Throughout] Pulse Rate [ From Monitor] Pulse Rate [ Left Dorsalis Pedis] Pulse Rate [ Left Radial] Pulse Rate [ Right Dorsalis Pedis] Pulse Rate [ Right Radial] Respiratory 29 H 25 H 30 H Rate Respiratory Rate [Bilateral Throughout] Blood Pressure 172/83 172/83 172/83 O2 Sat by Pulse 93 91 92 Oximetry 03/19/21 03/19/21 03/19/21 10:29 10:30 10:46 Temperature Pulse Rate 124 H 116 H Pulse Rate [ 121 H Bilateral Throughout] Pulse Rate [ From Monitor] Pulse Rate [ Left Dorsalis Pedis] Pulse Rate [ Left Radial] Pulse Rate [ Right Dorsalis Pedis] Pulse Rate [ Right Radial] Respiratory 22 24 Rate Respiratory 25 H Rate [Bilateral Throughout] Blood Pressure 172/83 172/83 O2 Sat by Pulse 91 94 Oximetry 03/19/21 03/19/21 03/19/21 11:00 11:16 11:30 Temperature Pulse Rate 114 H 114 H 109 H Pulse Rate [ Bilateral Throughout] Pulse Rate [ From Monitor] Pulse Rate [ Left Dorsalis Pedis] Pulse Rate [ Left Radial] Pulse Rate [ Right Dorsalis Pedis] Pulse Rate [ Right Radial] Respiratory 27 H 21 21 Rate Respiratory Rate [Bilateral Throughout] Blood Pressure 172/83 172/83 172/83 O2 Sat by Pulse 95 89 91 Oximetry 03/19/21 03/19/21 03/19/21 11:46 12:00 12:16 Temperature Pulse Rate 109 H 108 H 108 H Pulse Rate [ Bilateral Throughout] Pulse Rate [ 108 H From Monitor] Pulse Rate [ Left Dorsalis Pedis] Pulse Rate [ Left Radial] Pulse Rate [ Right Dorsalis Pedis] Pulse Rate [ Right Radial] Respiratory 27 H 28 H 28 H Rate Respiratory Rate [Bilateral Throughout] Blood Pressure 172/83 172/83 172/83 O2 Sat by Pulse 91 92 92 Oximetry 03/19/21 03/19/21 03/19/21 12:19 12:30 12:40 Temperature 99.7 F H Pulse Rate 105 H 109 H Pulse Rate [ Bilateral Throughout] Pulse Rate [ From Monitor] Pulse Rate [ Left Dorsalis Pedis] Pulse Rate [ Left Radial] Pulse Rate [ Right Dorsalis Pedis] Pulse Rate [ Right Radial] Respiratory 26 H Rate Respiratory Rate [Bilateral Throughout] Blood Pressure 172/83 104/57 O2 Sat by Pulse 94 92 Oximetry 03/19/21 03/19/21 03/19/21 12:45 14:01 14:30 Temperature Pulse Rate 105 H Pulse Rate [ 107 H Bilateral Throughout] Pulse Rate [ From Monitor] Pulse Rate [ Left Dorsalis Pedis] Pulse Rate [ Left Radial] Pulse Rate [ Right Dorsalis Pedis] Pulse Rate [ Right Radial] Respiratory 23 Rate Respiratory 25 H Rate [Bilateral Throughout] Blood Pressure 104/57 84/57 O2 Sat by Pulse 91 Oximetry 03/19/21 03/19/21 15:50 16:00 Temperature 98.5 F Pulse Rate 105 H Pulse Rate [ Bilateral Throughout] Pulse Rate [ From Monitor] Pulse Rate [ Left Dorsalis Pedis] Pulse Rate [ Left Radial] Pulse Rate [ Right Dorsalis Pedis] Pulse Rate [ Right Radial] Respiratory Rate Respiratory Rate [Bilateral Throughout] Blood Pressure 96/51 O2 Sat by Pulse 95 Oximetry Constitutional: agitated, appears uncomfortable Eyes: non-icteric ENT: oropharynx moist, other (ETT 24 cm CHAITANYA) Neck: supple, no lymphadenopathy, no JVD, other (large circumference) Effort: very labored Ascultation: Bilateral: diminished breath sounds, rhonchi Percussion: Bilateral: not dull Cardiovascular: regular rate and rhythm, other (tachycardia, S1,S2) Gastrointestinal: normoactive bowel sounds Integumentary: normal Extremities: no cyanosis, pulses normal, no ischemia or petechiae, edema Neurologic: pupils equal and round, unable to assess, other (sedated) Psychiatric: other (unable to assess re: AMS) CBC and BMP: 03/29/21 04:50 03/29/21 04:50 ABG, PT/INR, D-dimer: ABG ABG pH 7.373 pH Units (7.350-7.450) 03/19/21 02:35 POC ABG pCO2 71.9 mmHg (32.0-48.0) H 03/12/21 21:54 ABG pCO2 56.1 mm Hg 03/19/21 02:35 POC ABG pO2 53.6 mmHg (83-108) L 03/12/21 21:54 ABG pO2 83.5 mm Hg (80.0-90.0) 03/19/21 02:35 POC ABG HCO3 30.0 03/12/21 21:54 ABG O2 Saturation 96.5 % (95.0-99.0) 03/19/21 02:35 PT/INR, D-dimer PT 16.1 Sec. (12.2-14.9) H 03/08/21 20:24 INR 1.17 (0.87-1.13) H 03/08/21 20:24 D-Dimer 1359.12 ng/mlDDU (0-234) H 03/17/21 04:40 Abnormal lab findings: Abnormal Labs 03/08/21 03/08/21 03/08/21 20:24 20:24 20:24 WBC 22.6 H RBC 5.44 H Hgb 15.7 H Hct 49.2 H MCHC RDW Lymph % (Auto) [place] % (Auto) [place] # (Auto) Seg Neutrophils % Seg Neuts % (Manual) 83.0 H Lymphocytes % (Manual) 9.0 L Monocytes % (Manual) 8.0 H Nucleated RBC % Seg Neutrophils # Seg Neutrophils # Man 18.8 H Lymphocytes # (Manual) Monocytes # (Manual) 1.8 H PT 16.1 H INR 1.17 H D-Dimer > 53403 H ABG pH POC ABG pCO2 POC ABG pO2 ABG pO2 ABG HCO3 ABG O2 Saturation ABG Base Excess ABG Hemoglobin ABG Oxyhemoglobin ABG Sodium ABG Potassium ABG Glucose Oxyhemoglobin Sodium 136 L Potassium Chloride 93.9 L Carbon Dioxide BUN 29 H Creatinine Glucose 208 H POC Glucose Lactic Acid Phosphorus Magnesium Ferritin Lactate Dehydrogenase 624 H C-Reactive Protein 18.00 H NT-Pro-B Natriuret Pep 1053 H Total Protein Albumin Triglycerides Arterial Blood Glucose Ur Specific [place] Coronavirus (PCR) 03/08/21 03/08/21 03/09/21 20:24 20:24 04:10 WBC RBC Hgb Hct MCHC RDW Lymph % (Auto) [place] % (Auto) [place] # (Auto) Seg Neutrophils % Seg Neuts % (Manual) Lymphocytes % (Manual) Monocytes % (Manual) Nucleated RBC % Seg Neutrophils # Seg Neutrophils # Man Lymphocytes # (Manual) Monocytes # (Manual) PT INR D-Dimer ABG pH POC ABG pCO2 POC ABG pO2 ABG pO2 ABG HCO3 ABG O2 Saturation ABG Base Excess ABG Hemoglobin ABG Oxyhemoglobin ABG Sodium ABG Potassium ABG Glucose Oxyhemoglobin Sodium Potassium Chloride Carbon Dioxide BUN Creatinine Glucose POC Glucose Lactic Acid 2.10 H* Phosphorus Magnesium Ferritin 877.5 H Lactate Dehydrogenase C-Reactive Protein NT-Pro-B Natriuret Pep Total Protein Albumin Triglycerides Arterial Blood Glucose Ur Specific [place] 1.041 H Coronavirus (PCR) 03/09/21 03/09/21 03/09/21 07:46 08:00 13:01 WBC RBC Hgb Hct MCHC RDW Lymph % (Auto) [place] % (Auto) [place] # (Auto) Seg Neutrophils % Seg Neuts % (Manual) Lymphocytes % (Manual) Monocytes % (Manual) Nucleated RBC % Seg Neutrophils # Seg Neutrophils # Man Lymphocytes # (Manual) Monocytes # (Manual) PT INR D-Dimer ABG pH POC ABG pCO2 POC ABG pO2 ABG pO2 ABG HCO3 ABG O2 Saturation ABG Base Excess ABG Hemoglobin ABG Oxyhemoglobin ABG Sodium ABG Potassium ABG Glucose Oxyhemoglobin Sodium Potassium Chloride Carbon Dioxide BUN Creatinine Glucose POC Glucose 191 H 182 H Lactic Acid Phosphorus Magnesium Ferritin Lactate Dehydrogenase C-Reactive Protein NT-Pro-B Natriuret Pep Total Protein Albumin Triglycerides Arterial Blood Glucose Ur Specific [place] Coronavirus (PCR) Positive A 03/09/21 03/09/21 03/09/21 15:19 17:48 18:10 WBC RBC Hgb Hct MCHC RDW Lymph % (Auto) [place] % (Auto) [place] # (Auto) Seg Neutrophils % Seg Neuts % (Manual) Lymphocytes % (Manual) Monocytes % (Manual) Nucleated RBC % Seg Neutrophils # Seg Neutrophils # Man Lymphocytes # (Manual) Monocytes # (Manual) PT INR D-Dimer ABG pH POC ABG pCO2 POC ABG pO2 ABG pO2 47.3 L ABG HCO3 26.3 H ABG O2 Saturation 83.7 L ABG Base Excess ABG Hemoglobin ABG Oxyhemoglobin ABG Sodium ABG Potassium ABG Glucose Oxyhemoglobin 82.1 L Sodium Potassium Chloride Carbon Dioxide BUN 29 H Creatinine Glucose 214 H POC Glucose 194 H Lactic Acid Phosphorus Magnesium Ferritin Lactate Dehydrogenase C-Reactive Protein NT-Pro-B Natriuret Pep Total Protein Albumin 3.4 L Triglycerides Arterial Blood Glucose Ur Specific [place] Coronavirus (PCR) 03/09/21 03/10/21 03/10/21 20:40 04:29 04:29 WBC 20.6 H RBC 5.07 H Hgb Hct 46.2 H MCHC RDW Lymph % (Auto) [place] % (Auto) [place] # (Auto) Seg Neutrophils % Seg Neuts % (Manual) 94.0 H Lymphocytes % (Manual) 1.0 L Monocytes % (Manual) Nucleated RBC % 3.0 H Seg Neutrophils # Seg Neutrophils # Man 19.4 H Lymphocytes # (Manual) 0.2 L Monocytes # (Manual) 1.0 H PT INR D-Dimer ABG pH POC ABG pCO2 POC ABG pO2 ABG pO2 ABG HCO3 ABG O2 Saturation ABG Base Excess ABG Hemoglobin ABG Oxyhemoglobin ABG Sodium ABG Potassium ABG Glucose Oxyhemoglobin Sodium Potassium Chloride Carbon Dioxide BUN 29 H Creatinine Glucose 188 H POC Glucose 176 H Lactic Acid Phosphorus Magnesium Ferritin Lactate Dehydrogenase C-Reactive Protein NT-Pro-B Natriuret Pep Total Protein Albumin 3.3 L Triglycerides Arterial Blood Glucose Ur Specific [place] Coronavirus (PCR) 03/10/21 03/10/21 03/10/21 05:22 10:27 15:25 WBC RBC Hgb Hct MCHC RDW Lymph % (Auto) [place] % (Auto) [place] # (Auto) Seg Neutrophils % Seg Neuts % (Manual) Lymphocytes % (Manual) Monocytes % (Manual) Nucleated RBC % Seg Neutrophils # Seg Neutrophils # Man Lymphocytes # (Manual) Monocytes # (Manual) PT INR D-Dimer ABG pH 7.488 H 7.488 H POC ABG pCO2 POC ABG pO2 ABG pO2 47.7 L 50.5 L ABG HCO3 ABG O2 Saturation 86.2 L 87.9 L ABG Base Excess ABG Hemoglobin ABG Oxyhemoglobin ABG Sodium ABG Potassium ABG Glucose Oxyhemoglobin 84.6 L 86.2 L Sodium Potassium Chloride Carbon Dioxide BUN Creatinine Glucose POC Glucose 155 H Lactic Acid Phosphorus Magnesium Ferritin Lactate Dehydrogenase C-Reactive Protein NT-Pro-B Natriuret Pep Total Protein Albumin Triglycerides Arterial Blood Glucose Ur Specific [place] Coronavirus (PCR) 03/10/21 03/10/21 03/11/21 18:10 18:55 00:07 WBC RBC Hgb Hct MCHC RDW Lymph % (Auto) [place] % (Auto) [place] # (Auto) Seg Neutrophils % Seg Neuts % (Manual) Lymphocytes % (Manual) Monocytes % (Manual) Nucleated RBC % Seg Neutrophils # Seg Neutrophils # Man Lymphocytes # (Manual) Monocytes # (Manual) PT INR D-Dimer ABG pH 7.343 L POC ABG pCO2 POC ABG pO2 ABG pO2 60.4 L ABG HCO3 27.9 H ABG O2 Saturation 88.7 L ABG Base Excess ABG Hemoglobin ABG Oxyhemoglobin ABG Sodium ABG Potassium ABG Glucose Oxyhemoglobin 86.9 L Sodium Potassium Chloride Carbon Dioxide BUN Creatinine Glucose POC Glucose 187 H 139 H Lactic Acid Phosphorus Magnesium Ferritin Lactate Dehydrogenase C-Reactive Protein NT-Pro-B Natriuret Pep Total Protein Albumin Triglycerides Arterial Blood Glucose Ur Specific [place] Coronavirus (PCR) 03/11/21 03/11/21 03/11/21 02:09 04:28 08:06 WBC RBC Hgb Hct MCHC RDW Lymph % (Auto) [place] % (Auto) [place] # (Auto) Seg Neutrophils % Seg Neuts % (Manual) Lymphocytes % (Manual) Monocytes % (Manual) Nucleated RBC % Seg Neutrophils # Seg Neutrophils # Man Lymphocytes # (Manual) Monocytes # (Manual) PT INR D-Dimer ABG pH 7.277 L POC ABG pCO2 55.9 H POC ABG pO2 54.4 L ABG pO2 ABG HCO3 ABG O2 Saturation ABG Base Excess ABG Hemoglobin ABG Oxyhemoglobin 83.0 L ABG Sodium ABG Potassium 4.8 H ABG Glucose 180 H Oxyhemoglobin Sodium Potassium Chloride Carbon Dioxide BUN 38 H Creatinine Glucose 249 H POC Glucose 278 H Lactic Acid Phosphorus Magnesium Ferritin Lactate Dehydrogenase C-Reactive Protein NT-Pro-B Natriuret Pep Total Protein Albumin 3.2 L Triglycerides Arterial Blood Glucose 180 H Ur Specific [place] Coronavirus (PCR) 03/11/21 03/11/21 03/11/21 11:29 15:06 15:48 WBC RBC Hgb Hct MCHC RDW Lymph % (Auto) [place] % (Auto) [place] # (Auto) Seg Neutrophils % Seg Neuts % (Manual) Lymphocytes % (Manual) Monocytes % (Manual) Nucleated RBC % Seg Neutrophils # Seg Neutrophils # Man Lymphocytes # (Manual) Monocytes # (Manual) PT INR D-Dimer ABG pH 7.260 L POC ABG pCO2 POC ABG pO2 ABG pO2 53.5 L ABG HCO3 29.5 H ABG O2 Saturation 84.0 L ABG Base Excess ABG Hemoglobin ABG Oxyhemoglobin ABG Sodium ABG Potassium ABG Glucose Oxyhemoglobin 82.3 L Sodium Potassium Chloride Carbon Dioxide BUN Creatinine Glucose POC Glucose 288 H 295 H Lactic Acid Phosphorus Magnesium Ferritin Lactate Dehydrogenase C-Reactive Protein NT-Pro-B Natriuret Pep Total Protein Albumin Triglycerides Arterial Blood Glucose Ur Specific [place] Coronavirus (PCR) 03/12/21 03/12/21 03/12/21 00:01 05:24 08:03 WBC RBC Hgb Hct MCHC RDW Lymph % (Auto) [place] % (Auto) [place] # (Auto) Seg Neutrophils % Seg Neuts % (Manual) Lymphocytes % (Manual) Monocytes % (Manual) Nucleated RBC % Seg Neutrophils # Seg Neutrophils # Man Lymphocytes # (Manual) Monocytes # (Manual) PT INR D-Dimer ABG pH POC ABG pCO2 POC ABG pO2 ABG pO2 ABG HCO3 ABG O2 Saturation ABG Base Excess ABG Hemoglobin ABG Oxyhemoglobin ABG Sodium ABG Potassium ABG Glucose Oxyhemoglobin Sodium 135 L Potassium Chloride Carbon Dioxide BUN 48 H Creatinine Glucose 358 H POC Glucose 304 H 310 H Lactic Acid Phosphorus Magnesium Ferritin Lactate Dehydrogenase C-Reactive Protein NT-Pro-B Natriuret Pep Total Protein 6.0 L Albumin 2.9 L Triglycerides Arterial Blood Glucose Ur Specific [place] Coronavirus (PCR) 03/12/21 03/12/21 03/12/21 08:03 10:43 11:31 WBC 14.6 H RBC Hgb Hct MCHC RDW Lymph % (Auto) [place] % (Auto) [place] # (Auto) Seg Neutrophils % Seg Neuts % (Manual) Lymphocytes % (Manual) Monocytes % (Manual) Nucleated RBC % Seg Neutrophils # Seg Neutrophils # Man Lymphocytes # (Manual) Monocytes # (Manual) PT INR D-Dimer ABG pH 7.248 L POC ABG pCO2 POC ABG pO2 ABG pO2 73.7 L ABG HCO3 32.0 H ABG O2 Saturation 93.9 L ABG Base Excess ABG Hemoglobin ABG Oxyhemoglobin ABG Sodium ABG Potassium ABG Glucose Oxyhemoglobin 92.1 L Sodium Potassium Chloride Carbon Dioxide BUN Creatinine Glucose POC Glucose 359 H Lactic Acid Phosphorus Magnesium Ferritin Lactate Dehydrogenase C-Reactive Protein NT-Pro-B Natriuret Pep Total Protein Albumin Triglycerides Arterial Blood Glucose Ur Specific [place] Coronavirus (PCR) 03/12/21 03/12/21 03/13/21 17:20 21:54 00:02 WBC RBC Hgb Hct MCHC RDW Lymph % (Auto) [place] % (Auto) [place] # (Auto) Seg Neutrophils % Seg Neuts % (Manual) Lymphocytes % (Manual) Monocytes % (Manual) Nucleated RBC % Seg Neutrophils # Seg Neutrophils # Man Lymphocytes # (Manual) Monocytes # (Manual) PT INR D-Dimer ABG pH 7.238 L POC ABG pCO2 71.9 H POC ABG pO2 53.6 L ABG pO2 ABG HCO3 ABG O2 Saturation ABG Base Excess ABG Hemoglobin ABG Oxyhemoglobin 84.8 L ABG Sodium 134.2 L ABG Potassium 4.9 H ABG Glucose 306 H Oxyhemoglobin Sodium Potassium Chloride Carbon Dioxide BUN Creatinine Glucose POC Glucose 374 H 308 H Lactic Acid Phosphorus Magnesium Ferritin Lactate Dehydrogenase C-Reactive Protein NT-Pro-B Natriuret Pep Total Protein Albumin Triglycerides Arterial Blood Glucose 306 H Ur Specific [place] Coronavirus (PCR) 03/13/21 03/13/21 03/13/21 05:22 05:44 05:44 WBC 13.9 H RBC Hgb Hct MCHC RDW Lymph % (Auto) [place] % (Auto) [place] # (Auto) Seg Neutrophils % Seg Neuts % (Manual) Lymphocytes % (Manual) Monocytes % (Manual) Nucleated RBC % Seg Neutrophils # Seg Neutrophils # Man Lymphocytes # (Manual) Monocytes # (Manual) PT INR D-Dimer 3567.97 H ABG pH POC ABG pCO2 POC ABG pO2 ABG pO2 ABG HCO3 ABG O2 Saturation ABG Base Excess ABG Hemoglobin ABG Oxyhemoglobin ABG Sodium ABG Potassium ABG Glucose Oxyhemoglobin Sodium Potassium Chloride Carbon Dioxide BUN Creatinine Glucose POC Glucose 316 H Lactic Acid Phosphorus Magnesium Ferritin Lactate Dehydrogenase C-Reactive Protein NT-Pro-B Natriuret Pep Total Protein Albumin Triglycerides Arterial Blood Glucose Ur Specific [place] Coronavirus (PCR) 03/13/21 03/13/21 03/13/21 05:44 05:44 11:15 WBC RBC Hgb Hct MCHC RDW Lymph % (Auto) [place] % (Auto) [place] # (Auto) Seg Neutrophils % Seg Neuts % (Manual) Lymphocytes % (Manual) Monocytes % (Manual) Nucleated RBC % Seg Neutrophils # Seg Neutrophils # Man Lymphocytes # (Manual) Monocytes # (Manual) PT INR D-Dimer ABG pH 7.310 L POC ABG pCO2 POC ABG pO2 ABG pO2 52.3 L ABG HCO3 34.1 H ABG O2 Saturation 86.8 L ABG Base Excess 5.5 H ABG Hemoglobin 13.8 L ABG Oxyhemoglobin ABG Sodium ABG Potassium ABG Glucose Oxyhemoglobin 85.1 L Sodium Potassium Chloride Carbon Dioxide BUN Creatinine Glucose POC Glucose Lactic Acid Phosphorus Magnesium Ferritin 858.7 H Lactate Dehydrogenase 348 H C-Reactive Protein 2.80 H NT-Pro-B Natriuret Pep Total Protein Albumin Triglycerides Arterial Blood Glucose Ur Specific [place] Coronavirus (PCR) 03/13/21 03/13/21 03/13/21 11:21 15:47 19:23 WBC RBC Hgb Hct MCHC RDW Lymph % (Auto) [place] % (Auto) [place] # (Auto) Seg Neutrophils % Seg Neuts % (Manual) Lymphocytes % (Manual) Monocytes % (Manual) Nucleated RBC % Seg Neutrophils # Seg Neutrophils # Man Lymphocytes # (Manual) Monocytes # (Manual) PT INR D-Dimer ABG pH POC ABG pCO2 POC ABG pO2 ABG pO2 ABG HCO3 ABG O2 Saturation ABG Base Excess ABG Hemoglobin ABG Oxyhemoglobin ABG Sodium ABG Potassium ABG Glucose Oxyhemoglobin Sodium 136 L Potassium 5.9 H Chloride Carbon Dioxide BUN 50 H Creatinine Glucose 397 H POC Glucose 322 H 317 H Lactic Acid Phosphorus Magnesium Ferritin Lactate Dehydrogenase C-Reactive Protein NT-Pro-B Natriuret Pep Total Protein Albumin Triglycerides Arterial Blood Glucose Ur Specific [place] Coronavirus (PCR) 03/13/21 03/14/21 03/14/21 23:46 05:32 05:50 WBC 11.6 H RBC Hgb Hct MCHC RDW Lymph % (Auto) [place] % (Auto) [place] # (Auto) Seg Neutrophils % Seg Neuts % (Manual) Lymphocytes % (Manual) Monocytes % (Manual) Nucleated RBC % Seg Neutrophils # Seg Neutrophils # Man Lymphocytes # (Manual) Monocytes # (Manual) PT INR D-Dimer ABG pH POC ABG pCO2 POC ABG pO2 ABG pO2 ABG HCO3 ABG O2 Saturation ABG Base Excess ABG Hemoglobin ABG Oxyhemoglobin ABG Sodium ABG Potassium ABG Glucose Oxyhemoglobin Sodium Potassium Chloride Carbon Dioxide BUN Creatinine Glucose POC Glucose 332 H 316 H Lactic Acid Phosphorus Magnesium Ferritin Lactate Dehydrogenase C-Reactive Protein NT-Pro-B Natriuret Pep Total Protein Albumin Triglycerides Arterial Blood Glucose Ur Specific [place] Coronavirus (PCR) 0103/14/21 03/14/21 05:50 11:33 16:53 WBC RBC Hgb Hct MCHC RDW Lymph % (Auto) [place] % (Auto) [place] # (Auto) Seg Neutrophils % Seg Neuts % (Manual) Lymphocytes % (Manual) Monocytes % (Manual) Nucleated RBC % Seg Neutrophils # Seg Neutrophils # Man Lymphocytes # (Manual) Monocytes # (Manual) PT INR D-Dimer ABG pH POC ABG pCO2 POC ABG pO2 ABG pO2 ABG HCO3 ABG O2 Saturation ABG Base Excess ABG Hemoglobin ABG Oxyhemoglobin ABG Sodium ABG Potassium ABG Glucose Oxyhemoglobin Sodium Potassium 5.9 H Chloride Carbon Dioxide 31 H BUN 48 H Creatinine Glucose 380 H POC Glucose 315 H 235 H Lactic Acid Phosphorus Magnesium 3.40 H Ferritin Lactate Dehydrogenase C-Reactive Protein NT-Pro-B Natriuret Pep Total Protein Albumin Triglycerides Arterial Blood Glucose Ur Specific [place] Coronavirus (PCR) 03/14/21 03/14/21 03/15/21 18:34 23:27 01:22 WBC RBC Hgb Hct 46.3 H MCHC RDW Lymph % (Auto) [place] % (Auto) [place] # (Auto) Seg Neutrophils % Seg Neuts % (Manual) Lymphocytes % (Manual) Monocytes % (Manual) Nucleated RBC % Seg Neutrophils # Seg Neutrophils # Man Lymphocytes # (Manual) Monocytes # (Manual) PT INR D-Dimer ABG pH POC ABG pCO2 POC ABG pO2 ABG pO2 ABG HCO3 ABG O2 Saturation ABG Base Excess ABG Hemoglobin ABG Oxyhemoglobin ABG Sodium ABG Potassium ABG Glucose Oxyhemoglobin Sodium 146 H Potassium Chloride Carbon Dioxide 34 H BUN 49 H Creatinine Glucose 285 H POC Glucose 203 H Lactic Acid Phosphorus Magnesium Ferritin Lactate Dehydrogenase C-Reactive Protein NT-Pro-B Natriuret Pep Total Protein Albumin Triglycerides Arterial Blood Glucose Ur Specific [place] Coronavirus (PCR) 03/15/21 03/15/21 03/15/21 04:00 06:06 06:06 WBC RBC Hgb Hct MCHC RDW Lymph % (Auto) [place] % (Auto) [place] # (Auto) Seg Neutrophils % Seg Neuts % (Manual) Lymphocytes % (Manual) Monocytes % (Manual) Nucleated RBC % Seg Neutrophils # Seg Neutrophils # Man Lymphocytes # (Manual) Monocytes # (Manual) PT INR D-Dimer 1781.79 H ABG pH POC ABG pCO2 POC ABG pO2 ABG pO2 ABG HCO3 ABG O2 Saturation ABG Base Excess ABG Hemoglobin ABG Oxyhemoglobin ABG Sodium ABG Potassium ABG Glucose Oxyhemoglobin Sodium 148 H Potassium 5.7 H D Chloride 108.0 H Carbon Dioxide 31 H BUN 46 H Creatinine Glucose 139 H POC Glucose Lactic Acid Phosphorus 4.80 H D Magnesium 3.00 H Ferritin 976.4 H Lactate Dehydrogenase 630 H C-Reactive Protein NT-Pro-B Natriuret Pep Total Protein Albumin Triglycerides Arterial Blood Glucose Ur Specific [place] Coronavirus (PCR) 03/15/21 03/15/21 03/15/21 11:56 14:05 17:09 WBC RBC Hgb Hct MCHC RDW Lymph % (Auto) [place] % (Auto) [place] # (Auto) Seg Neutrophils % Seg Neuts % (Manual) Lymphocytes % (Manual) Monocytes % (Manual) Nucleated RBC % Seg Neutrophils # Seg Neutrophils # Man Lymphocytes # (Manual) Monocytes # (Manual) PT INR D-Dimer ABG pH POC ABG pCO2 POC ABG pO2 ABG pO2 52.1 L ABG HCO3 36.6 H ABG O2 Saturation 87.6 L ABG Base Excess 9.5 H ABG Hemoglobin ABG Oxyhemoglobin ABG Sodium ABG Potassium ABG Glucose Oxyhemoglobin 85.7 L Sodium Potassium Chloride Carbon Dioxide BUN Creatinine Glucose POC Glucose 219 H 263 H Lactic Acid Phosphorus Magnesium Ferritin Lactate Dehydrogenase C-Reactive Protein NT-Pro-B Natriuret Pep Total Protein Albumin Triglycerides Arterial Blood Glucose Ur Specific [place] Coronavirus (PCR) 03/16/21 03/16/21 03/16/21 00:32 04:11 04:11 WBC 11.9 H RBC Hgb Hct MCHC 30 L RDW Lymph % (Auto) [place] % (Auto) [place] # (Auto) Seg Neutrophils % Seg Neuts % (Manual) Lymphocytes % (Manual) Monocytes % (Manual) Nucleated RBC % Seg Neutrophils # Seg Neutrophils # Man Lymphocytes # (Manual) Monocytes # (Manual) PT INR D-Dimer ABG pH POC ABG pCO2 POC ABG pO2 ABG pO2 ABG HCO3 ABG O2 Saturation ABG Base Excess ABG Hemoglobin ABG Oxyhemoglobin ABG Sodium ABG Potassium ABG Glucose Oxyhemoglobin Sodium 151 H Potassium Chloride Carbon Dioxide 35 H BUN 48 H Creatinine Glucose 152 H POC Glucose 165 H Lactic Acid Phosphorus Magnesium Ferritin Lactate Dehydrogenase C-Reactive Protein NT-Pro-B Natriuret Pep Total Protein Albumin Triglycerides Arterial Blood Glucose Ur Specific [place] Coronavirus (PCR) 03/16/21 03/16/21 03/16/21 04:11 05:26 11:35 WBC RBC Hgb Hct MCHC RDW Lymph % (Auto) [place] % (Auto) [place] # (Auto) Seg Neutrophils % Seg Neuts % (Manual) Lymphocytes % (Manual) Monocytes % (Manual) Nucleated RBC % Seg Neutrophils # Seg Neutrophils # Man Lymphocytes # (Manual) Monocytes # (Manual) PT INR D-Dimer ABG pH POC ABG pCO2 POC ABG pO2 ABG pO2 ABG HCO3 ABG O2 Saturation ABG Base Excess ABG Hemoglobin ABG Oxyhemoglobin ABG Sodium ABG Potassium ABG Glucose Oxyhemoglobin Sodium Potassium Chloride Carbon Dioxide BUN Creatinine Glucose POC Glucose 162 H 187 H Lactic Acid Phosphorus Magnesium Ferritin Lactate Dehydrogenase C-Reactive Protein NT-Pro-B Natriuret Pep Total Protein Albumin Triglycerides 267 H Arterial Blood Glucose Ur Specific [place] Coronavirus (PCR) 03/16/21 03/16/21 03/16/21 17:29 22:25 23:22 WBC RBC Hgb Hct MCHC RDW Lymph % (Auto) [place] % (Auto) [place] # (Auto) Seg Neutrophils % Seg Neuts % (Manual) Lymphocytes % (Manual) Monocytes % (Manual) Nucleated RBC % Seg Neutrophils # Seg Neutrophils # Man Lymphocytes # (Manual) Monocytes # (Manual) PT INR D-Dimer ABG pH POC ABG pCO2 POC ABG pO2 ABG pO2 ABG HCO3 ABG O2 Saturation ABG Base Excess ABG Hemoglobin ABG Oxyhemoglobin ABG Sodium ABG Potassium ABG Glucose Oxyhemoglobin Sodium Potassium Chloride Carbon Dioxide BUN Creatinine Glucose POC Glucose 237 H 165 H 189 H Lactic Acid Phosphorus Magnesium Ferritin Lactate Dehydrogenase C-Reactive Protein NT-Pro-B Natriuret Pep Total Protein Albumin Triglycerides Arterial Blood Glucose Ur Specific [place] Coronavirus (PCR) 03/17/21 03/17/21 03/17/21 04:40 04:40 04:40 WBC 14.1 H RBC Hgb Hct MCHC RDW 15.3 H Lymph % (Auto) 12.6 L [place] % (Auto) 11.3 H [place] # (Auto) 1.6 H Seg Neutrophils % 74.9 H Seg Neuts % (Manual) Lymphocytes % (Manual) Monocytes % (Manual) Nucleated RBC % Seg Neutrophils # 10.5 H Seg Neutrophils # Man Lymphocytes # (Manual) Monocytes # (Manual) PT INR D-Dimer 1359.12 H ABG pH POC ABG pCO2 POC ABG pO2 ABG pO2 ABG HCO3 ABG O2 Saturation ABG Base Excess ABG Hemoglobin ABG Oxyhemoglobin ABG Sodium ABG Potassium ABG Glucose Oxyhemoglobin Sodium 148 H Potassium Chloride 107.5 H Carbon Dioxide 33 H BUN 42 H Creatinine Glucose 183 H POC Glucose Lactic Acid Phosphorus Magnesium 2.70 H Ferritin Lactate Dehydrogenase C-Reactive Protein NT-Pro-B Natriuret Pep Total Protein Albumin Triglycerides Arterial Blood Glucose Ur Specific [place] Coronavirus (PCR) 03/17/21 03/17/21 03/17/21 05:53 11:05 11:51 WBC RBC Hgb Hct MCHC RDW Lymph % (Auto) [place] % (Auto) [place] # (Auto) Seg Neutrophils % Seg Neuts % (Manual) Lymphocytes % (Manual) Monocytes % (Manual) Nucleated RBC % Seg Neutrophils # Seg Neutrophils # Man Lymphocytes # (Manual) Monocytes # (Manual) PT INR D-Dimer ABG pH POC ABG pCO2 POC ABG pO2 ABG pO2 ABG HCO3 35.7 H ABG O2 Saturation ABG Base Excess 8.7 H ABG Hemoglobin ABG Oxyhemoglobin ABG Sodium ABG Potassium ABG Glucose Oxyhemoglobin 94.2 L Sodium Potassium Chloride Carbon Dioxide BUN Creatinine Glucose POC Glucose 176 H 197 H Lactic Acid Phosphorus Magnesium Ferritin Lactate Dehydrogenase C-Reactive Protein NT-Pro-B Natriuret Pep Total Protein Albumin Triglycerides Arterial Blood Glucose Ur Specific [place] Coronavirus (PCR) 03/17/21 03/17/21 03/17/21 16:54 21:10 23:33 WBC RBC Hgb Hct MCHC RDW Lymph % (Auto) [place] % (Auto) [place] # (Auto) Seg Neutrophils % Seg Neuts % (Manual) Lymphocytes % (Manual) Monocytes % (Manual) Nucleated RBC % Seg Neutrophils # Seg Neutrophils # Man Lymphocytes # (Manual) Monocytes # (Manual) PT INR D-Dimer ABG pH POC ABG pCO2 POC ABG pO2 ABG pO2 ABG HCO3 ABG O2 Saturation ABG Base Excess ABG Hemoglobin ABG Oxyhemoglobin ABG Sodium ABG Potassium ABG Glucose Oxyhemoglobin Sodium Potassium Chloride Carbon Dioxide BUN Creatinine Glucose POC Glucose 135 H 160 H 138 H Lactic Acid Phosphorus Magnesium Ferritin Lactate Dehydrogenase C-Reactive Protein NT-Pro-B Natriuret Pep Total Protein Albumin Triglycerides Arterial Blood Glucose Ur Specific [place] Coronavirus (PCR) 03/18/21 03/18/21 03/18/21 04:18 04:50 05:43 WBC RBC Hgb Hct MCHC RDW Lymph % (Auto) [place] % (Auto) [place] # (Auto) Seg Neutrophils % Seg Neuts % (Manual) Lymphocytes % (Manual) Monocytes % (Manual) Nucleated RBC % Seg Neutrophils # Seg Neutrophils # Man Lymphocytes # (Manual) Monocytes # (Manual) PT INR D-Dimer ABG pH POC ABG pCO2 POC ABG pO2 ABG pO2 59.8 L ABG HCO3 36.5 H ABG O2 Saturation 90.7 L ABG Base Excess 9.4 H ABG Hemoglobin 12.0 L ABG Oxyhemoglobin ABG Sodium ABG Potassium ABG Glucose Oxyhemoglobin 88.9 L Sodium Potassium Chloride 107.2 H Carbon Dioxide 34 H BUN 38 H Creatinine 0.7 L Glucose 136 H POC Glucose 128 H Lactic Acid Phosphorus Magnesium Ferritin Lactate Dehydrogenase C-Reactive Protein NT-Pro-B Natriuret Pep Total Protein Albumin Triglycerides Arterial Blood Glucose Ur Specific [place] Coronavirus (PCR) 03/18/21 03/18/21 03/18/21 11:20 17:35 23:35 WBC RBC Hgb Hct MCHC RDW Lymph % (Auto) [place] % (Auto) [place] # (Auto) Seg Neutrophils % Seg Neuts % (Manual) Lymphocytes % (Manual) Monocytes % (Manual) Nucleated RBC % Seg Neutrophils # Seg Neutrophils # Man Lymphocytes # (Manual) Monocytes # (Manual) PT INR D-Dimer ABG pH POC ABG pCO2 POC ABG pO2 ABG pO2 70.7 L ABG HCO3 33.6 H ABG O2 Saturation ABG Base Excess 8.0 H ABG Hemoglobin ABG Oxyhemoglobin ABG Sodium ABG Potassium ABG Glucose Oxyhemoglobin 93.7 L Sodium Potassium Chloride Carbon Dioxide BUN Creatinine Glucose POC Glucose 189 H 144 H Lactic Acid Phosphorus Magnesium Ferritin Lactate Dehydrogenase C-Reactive Protein NT-Pro-B Natriuret Pep Total Protein Albumin Triglycerides Arterial Blood Glucose Ur Specific [place] Coronavirus (PCR) 03/19/21 03/19/21 03/19/21 02:35 04:20 04:20 WBC 14.0 H RBC Hgb Hct MCHC RDW Lymph % (Auto) [place] % (Auto) [place] # (Auto) Seg Neutrophils % Seg Neuts % (Manual) Lymphocytes % (Manual) Monocytes % (Manual) Nucleated RBC % Seg Neutrophils # Seg Neutrophils # Man Lymphocytes # (Manual) Monocytes # (Manual) PT INR D-Dimer ABG pH POC ABG pCO2 POC ABG pO2 ABG pO2 ABG HCO3 32.0 H ABG O2 Saturation ABG Base Excess 5.2 H ABG Hemoglobin 13.6 L ABG Oxyhemoglobin ABG Sodium ABG Potassium ABG Glucose Oxyhemoglobin 94.6 L Sodium 146 H Potassium Chloride 109.3 H Carbon Dioxide BUN 36 H Creatinine Glucose 203 H POC Glucose Lactic Acid Phosphorus Magnesium Ferritin Lactate Dehydrogenase C-Reactive Protein NT-Pro-B Natriuret Pep Total Protein Albumin Triglycerides 254 H Arterial Blood Glucose Ur Specific [place] Coronavirus (PCR) 03/19/21 03/19/21 05:45 11:36 WBC RBC Hgb Hct MCHC RDW Lymph % (Auto) [place] % (Auto) [place] # (Auto) Seg Neutrophils % Seg Neuts % (Manual) Lymphocytes % (Manual) Monocytes % (Manual) Nucleated RBC % Seg Neutrophils # Seg Neutrophils # Man Lymphocytes # (Manual) Monocytes # (Manual) PT INR D-Dimer ABG pH POC ABG pCO2 POC ABG pO2 ABG pO2 ABG HCO3 ABG O2 Saturation ABG Base Excess ABG Hemoglobin ABG Oxyhemoglobin ABG Sodium ABG Potassium ABG Glucose Oxyhemoglobin Sodium Potassium Chloride Carbon Dioxide BUN Creatinine Glucose POC Glucose 164 H 172 H Lactic Acid Phosphorus Magnesium Ferritin Lactate Dehydrogenase C-Reactive Protein NT-Pro-B Natriuret Pep Total Protein Albumin Triglycerides Arterial Blood Glucose Ur Specific [place] Coronavirus (PCR) Chest x-ray: image reviewed Allied health notes reviewed: RT
[2021-03-20] MEDS: INSULIN LISPRO 100 UNIT/ML SUB-Q SCH ×4 (00:31→17:57)
[2021-03-20] MEDS: INSULIN REGULAR, HUMAN 100 UNITS/1 ML SUB-Q SCH ×3 (00:32→12:29)
[2021-03-20] MEDS: fentaNYL DRIP Premix 2,000 MCG/100 ML BAG IV SCH ×5 (03:35→22:32)
[2021-03-20 03:54] LABS: ABG Base Excess 6.4 mmol/L (-2.0-3.0); ABG HCO3 33.7 mmol/L (20.0-26.0); ABG Methemoglobin 0.6 % (0.0-1.5); ABG Oxygen Saturation 95.8 % (95.0-99.0); ABG PCO2 62.6 mm Hg; ABG PH 7.349 pH Units (7.350-7.450); ABG PO2 83.9 mm Hg (80.0-90.0)
[2021-03-20 05:36] LABS: Hematocrit 37.9 % (35.5-45.6); Mean Corpuscular HGB Conc 32 % (32-34); Mean Corpuscular Volume 95 fl (84-94); Platelet Count 259 K/mm3 (140-440); Red Blood Count 4.01 M/mm3 (3.65-5.03); Red Cell Distribution Width 15.7 % (13.2-15.2)
[2021-03-20 05:59] LABS: Blood Urea Nitrogen 34 mg/dL (9-20); Calcium 8.5 mg/dL (8.4-10.2); Hemolysis Index 29
[2021-03-20] MEDS: MIDAZOLAM 2 MG/2 ML INJ IV PRN ×4 (06:15→15:15)
[2021-03-20 06:16] LABS: BUN/Creatinine Ratio 49
[2021-03-20] MEDS: methylPREDNISolone Sod Succinate 125 MG/2 ML INJ IV SCH ×2 (06:16→13:04)
[2021-03-20] MEDS: hydrALAZINE 25 MG TAB PO SCH ×3 (06:24→21:23)
[2021-03-20] MEDS: CEFEPIME/NS 2 GM/100 ML 2 GM/100 ML BAG IV SCH ×2 (06:24→13:03)
[2021-03-20] MEDS ORDERED: SODIUM POLYSTYRENE 15 GM/60 ML ORAL LIQD PO SCH (08:30)
[2021-03-20] MEDS ORDERED: SODIUM CHLORIDE 0.9% 500 ML IVPB IV PRN (08:39)
[2021-03-20] MEDS: fentaNYL 100 MCG/2 ML INJ IV PRN (08:40)
[2021-03-20] MEDS: BUDESONIDE 0.25 MG/2 ML NEBU IH SCH ×2 (08:50→20:49)
[2021-03-20] MEDS: IPRATROPIUM/ALBUTEROL SULFATE 3 ML AMPUL.NEB IH SCH ×3 (08:50→20:48)
[2021-03-20] MEDS: ARFORMOTEROL 15 MCG/2 ML NEBU IH SCH ×2 (08:50→20:48)
[2021-03-20] MEDS: ENOXAPARIN 100 MG/1 ML INJ SUB-Q SCH (09:00)
[2021-03-20] MEDS: QUEtiapine 100 MG TAB PO SCH ×2 (09:00→21:24)
[2021-03-20] MEDS: FAMOTIDINE 20 MG TAB FEEDTUBE SCH ×2 (09:00→21:24)
[2021-03-20] MEDS: ZINC SULFATE 220 MG CAP PO SCH ×2 (09:00→21:26)
[2021-03-20] MEDS: ASCORBIC ACID 500 MG TAB PO SCH ×2 (09:00→21:26)
[2021-03-20] MEDS: VANCOMYCIN 1,750 MG in SODIUM CHLORIDE 0.9% 500 ML 500 ML IV SCH (09:09)
[2021-03-20] MEDS: SENNOSIDES/DOCUSATE SODIUM 8.6/50 MG TAB FEEDTUBE SCH ×2 (09:10→21:24)
[2021-03-20] MEDS: hydrALAZINE 20 MG/1 ML INJ IV PRN (09:22)
[2021-03-20] MEDS ORDERED: SODIUM CHLORIDE 0.9% 50 ML IVPB IV PRN (09:48)
[2021-03-20] MEDS: INSULIN GLARGINE 100 UNITS/ML SUB-Q SCH ×2 (10:00→21:24)
[2021-03-20] MEDS ORDERED: DEXTROSE 10% *Hypoglycemia IV PRN (10:52)
--- NOTE | 2021-03-20 12:25 | Progress Note ---
Assessment and Plan Acute hypoxemic respiratory failure, on continuous noninvasive ventilation COVID-19 infection Bilateral pneumonia History of diabetes Obesity Hypertension Leukocytosis Possible venous thromboembolic phenomena with significantly elevated D-dimers DM II Elevated serum inflammatory markers to include CRP levels, ferritin and LDH - ETT day # 11; he may be headed for a tracheostomy - increased Seroquel to 250 mg po bid - asked RN to wean off Propofol - will change Propofol to Versed if QT increases - discontinue yusuf catheter - continue care as below otherwise; - continue Daily SAT and SBT assessment as tolerated - continue to wean supplemental oxygen for target O2 sat's > 90% acutely - VAP bundle addressed - continue lung protective strategies - continue bronchodilators with pulmonary hygiene per RT - wean per pulmonary driven protocols otherwise - continue accuchecks with glycemic control per SSI (While critically ill target blood glucose of 140-180 mg/dL; avoid hypoglycemia) - sedation prn for target RASS 0 to -1 - avoid nephrotoxins, renally dose all medications - avoid benzodiazepine's, reduce the possibility of delirium - AB's per ID rec's - prn analgesia per pain score - Maintenance of sleep-wake cycle, avoid delirium - G.I. & VTE prophylaxis - PT/OT/ROM exercises - mobility protocols for pressure ulcer prophylaxis - Monitor hemodynamics closely - continue other care per attending / other consultants - discharge planning ongoing concurrently COVID SPECIFIC INTERVENTIONS - Remdesivir as per ID/Pulmonary developed protocols (received) - continue systemic steroids for severe COVID-19 infection empirically (Decadron) - follow repeat COVID tests results - zinc and vitamin C supplementation - Monitor inflammatory markers per facility protocol - ferritin, Ddimer, CRP - therapeutic anticoagulation per system Protocol based on d-dimer and clinical considerations (treatment dose) - Continue contact and airborne isolation .... Re-evaluate in am & prn CONDITION: CRITICAL PROGNOSIS: GUARDED CODE STATUS: FULL CODE The high probability of a clinically significant, sudden or life-threatening deterioration of the [respiratory, cardiovascular & hematologic] system(s) required my full and direct attention, intervention and personal management. The aggregate critical care time was [36] minutes without overlap. Time includes spent on; [x] Data Review and interpretation [x] Patient assessment and monitoring of vital signs [x] Documentation [x] Medication orders and management Subjective Date of service: 03/20/21 Principal diagnosis: COVID-19 infection; DM II; Bilateral pneumonia; Obesity; HTN Interval history: Patient is seen today for: Acute hypoxemic respiratory failure; COVID-19 infection; DM II; Bilateral pneumonia; Obesity; HTN Seen and examined at bedside; 24hour events reviewed; nursing and respiratory care staff consulted; no adverse overnight events reported to me; resting in bed; remains on MVS; still requiring significant sedation; failed bedside SBT quickly; no emesis or overt aspiration; severely agitated during SAT's Objective Vital Signs - 12hr 03/20/21 03/20/21 03/20/21 00:30 00:45 00:58 Temperature Pulse Rate 105 H 102 H 95 H Pulse Rate [ Bilateral Throughout] Pulse Rate [ From Monitor] Respiratory 16 24 Rate Respiratory Rate [Bilateral Throughout] Blood Pressure 175/90 128/59 128/59 O2 Sat by Pulse 90 88 92 Oximetry 03/20/21 03/20/21 03/20/21 01:00 01:15 01:30 Temperature Pulse Rate 97 H 95 H 97 H Pulse Rate [ Bilateral Throughout] Pulse Rate [ From Monitor] Respiratory 18 24 27 H Rate Respiratory Rate [Bilateral Throughout] Blood Pressure 132/67 128/58 113/59 O2 Sat by Pulse 81 L 89 88 Oximetry 03/20/21 03/20/21 03/20/21 01:45 02:00 02:15 Temperature Pulse Rate 97 H 95 H 95 H Pulse Rate [ Bilateral Throughout] Pulse Rate [ From Monitor] Respiratory H 24 25 H Rate Respiratory Rate [Bilateral Throughout] Blood Pressure 109/55 97/52 112/58 O2 Sat by Pulse 89 89 91 Oximetry 03/20/21 03/20/21 03/20/21 02:30 02:45 03:00 Temperature Pulse Rate 94 H 93 H 92 H Pulse Rate [ Bilateral Throughout] Pulse Rate [ From Monitor] Respiratory 25 H 25 H 25 H Rate Respiratory Rate [Bilateral Throughout] Blood Pressure 112/58 122/54 120/50 O2 Sat by Pulse 95 94 91 Oximetry 03/20/21 03/20/21 03/20/21 03:15 03:30 03:45 Temperature Pulse Rate 92 H 90 92 H Pulse Rate [ Bilateral Throughout] Pulse Rate [ From Monitor] Respiratory 25 H 26 H 25 H Rate Respiratory Rate [Bilateral Throughout] Blood Pressure 124/56 126/60 135/57 O2 Sat by Pulse 89 90 90 Oximetry 03/20/21 03/20/21 03/20/21 03:55 04:00 04:15 Temperature 98.9 F Pulse Rate 90 91 H 90 Pulse Rate [ Bilateral Throughout] Pulse Rate [ 103 H From Monitor] Respiratory 23 24 Rate Respiratory Rate [Bilateral Throughout] Blood Pressure 135/57 122/59 126/58 O2 Sat by Pulse 95 89 91 Oximetry 03/20/21 03/20/21 03/20/21 04:30 04:45 05:00 Temperature Pulse Rate 88 89 89 Pulse Rate [ Bilateral Throughout] Pulse Rate [ From Monitor] Respiratory 24 24 25 H Rate Respiratory Rate [Bilateral Throughout] Blood Pressure 134/64 112/65 113/62 O2 Sat by Pulse 91 94 91 Oximetry 03/20/21 03/20/21 03/20/21 05:15 05:30 05:45 Temperature Pulse Rate 89 99 H Pulse Rate [ Bilateral Throughout] Pulse Rate [ From Monitor] Respiratory 27 H 18 Rate Respiratory Rate [Bilateral Throughout] Blood Pressure 114/67 114/67 166/94 O2 Sat by Pulse 92 99 98 Oximetry 03/20/21 03/20/21 03/20/21 06:00 06:15 06:24 Temperature Pulse Rate 101 H 102 H 102 H Pulse Rate [ Bilateral Throughout] Pulse Rate [ From Monitor] Respiratory 17 21 Rate Respiratory Rate [Bilateral Throughout] Blood Pressure 122/54 189/88 189/88 O2 Sat by Pulse 96 93 Oximetry 03/20/21 03/20/21 03/20/21 06:30 06:45 07:00 Temperature Pulse Rate 96 H 92 H 91 H Pulse Rate [ Bilateral Throughout] Pulse Rate [ From Monitor] Respiratory 13 24 25 H Rate Respiratory Rate [Bilateral Throughout] Blood Pressure 116/69 121/67 106/57 O2 Sat by Pulse 89 86 83 L Oximetry 03/20/21 03/20/21 03/20/21 07:15 07:30 07:45 Temperature Pulse Rate 92 H 92 H 92 H Pulse Rate [ Bilateral Throughout] Pulse Rate [ From Monitor] Respiratory 25 H 25 H 24 Rate Respiratory Rate [Bilateral Throughout] Blood Pressure 122/57 118/55 111/57 O2 Sat by Pulse 91 90 92 Oximetry 03/20/21 03/20/21 03/20/21 08:00 08:15 08:30 Temperature 100.3 F H Pulse Rate 92 H 91 H 93 H Pulse Rate [ Bilateral Throughout] Pulse Rate [ 92 H From Monitor] Respiratory 27 H 29 H 16 Rate Respiratory Rate [Bilateral Throughout] Blood Pressure 125/53 125/53 110/68 O2 Sat by Pulse 90 94 92 Oximetry 03/20/21 03/20/21 03/20/21 08:45 08:50 09:01 Temperature Pulse Rate 104 H 112 H 108 H Pulse Rate [ 112 H Bilateral Throughout] Pulse Rate [ From Monitor] Respiratory 15 23 Rate Respiratory 28 H Rate [Bilateral Throughout] Blood Pressure 110/68 234/92 234/92 O2 Sat by Pulse 96 92 93 Oximetry 03/20/21 03/20/21 03/20/21 09:15 09:22 09:30 Temperature Pulse Rate 111 H 114 H 114 H Pulse Rate [ Bilateral Throughout] Pulse Rate [ From Monitor] Respiratory 24 14 Rate Respiratory Rate [Bilateral Throughout] Blood Pressure 244/102 244/102 213/118 O2 Sat by Pulse 90 93 Oximetry 03/20/21 03/20/21 03/20/21 09:45 10:01 10:15 Temperature Pulse Rate 122 H 126 H 128 H Pulse Rate [ Bilateral Throughout] Pulse Rate [ From Monitor] Respiratory 20 37 H 34 H Rate Respiratory Rate [Bilateral Throughout] Blood Pressure 213/118 223/94 223/94 O2 Sat by Pulse 89 88 89 Oximetry 03/20/21 03/20/21 03/20/21 10:31 10:45 11:01 Temperature Pulse Rate 129 H 127 H 129 H Pulse Rate [ Bilateral Throughout] Pulse Rate [ From Monitor] Respiratory 35 H 33 H 32 H Rate Respiratory Rate [Bilateral Throughout] Blood Pressure 173/101 173/101 191/95 O2 Sat by Pulse 90 90 89 Oximetry Constitutional: no acute distress, other (resting peacefully in bed) Eyes: non-icteric ENT: oropharynx moist, other (ETT 24 cm CHAITANYA) Neck: supple, no lymphadenopathy, no JVD, other (large circumference) Effort: normal Ascultation: Bilateral: diminished breath sounds, rhonchi Percussion: Bilateral: not dull Cardiovascular: regular rate and rhythm, other (tachycardia, S1,S2) Gastrointestinal: normoactive bowel sounds Integumentary: normal Extremities: no cyanosis, pulses normal, no ischemia or petechiae, edema Neurologic: pupils equal and round, unable to assess, other (sedated) Psychiatric: other (unable to assess re: AMS) CBC and BMP: 03/20/21 04:45 03/21/21 04:44 ABG, PT/INR, D-dimer: ABG ABG pH 7.349 pH Units (7.350-7.450) L 03/20/21 03:29 POC ABG pCO2 71.9 mmHg (32.0-48.0) H 03/12/21 21:54 ABG pCO2 62.6 mm Hg 03/20/21 03:29 POC ABG pO2 53.6 mmHg (83-108) L 03/12/21 21:54 ABG pO2 83.9 mm Hg (80.0-90.0) 03/20/21 03:29 POC ABG HCO3 30.0 03/12/21 21:54 ABG O2 Saturation 95.8 % (95.0-99.0) 03/20/21 03:29 PT/INR, D-dimer PT 16.1 Sec. (12.2-14.9) H 03/08/21 20:24 INR 1.17 (0.87-1.13) H 03/08/21 20:24 D-Dimer 1359.12 ng/mlDDU (0-234) H 03/17/21 04:40 Abnormal lab findings: Abnormal Labs 03/08/21 03/08/21 03/08/21 20:24 20:24 20:24 WBC 22.6 H RBC 5.44 H Hgb 15.7 H Hct 49.2 H MCV MCHC RDW Lymph % (Auto) [place] % (Auto) [place] # (Auto) Seg Neutrophils % Seg Neuts % (Manual) 83.0 H Lymphocytes % (Manual) 9.0 L Monocytes % (Manual) 8.0 H Nucleated RBC % Seg Neutrophils # Seg Neutrophils # Man 18.8 H Lymphocytes # (Manual) Monocytes # (Manual) 1.8 H PT 16.1 H INR 1.17 H D-Dimer > 09201 H ABG pH POC ABG pCO2 POC ABG pO2 ABG pO2 ABG HCO3 ABG O2 Saturation ABG Base Excess ABG Hemoglobin ABG Oxyhemoglobin ABG Sodium ABG Potassium ABG Glucose Oxyhemoglobin Sodium 136 L Potassium Chloride 93.9 L Carbon Dioxide BUN 29 H Creatinine Glucose 208 H POC Glucose Lactic Acid Phosphorus Magnesium Ferritin Lactate Dehydrogenase 624 H C-Reactive Protein 18.00 H NT-Pro-B Natriuret Pep 1053 H Total Protein Albumin Triglycerides Arterial Blood Glucose Ur Specific [place] Coronavirus (PCR) 03/08/21 03/08/21 03/09/21 20:24 20:24 04:10 WBC RBC Hgb Hct MCV MCHC RDW Lymph % (Auto) [place] % (Auto) [place] # (Auto) Seg Neutrophils % Seg Neuts % (Manual) Lymphocytes % (Manual) Monocytes % (Manual) Nucleated RBC % Seg Neutrophils # Seg Neutrophils # Man Lymphocytes # (Manual) Monocytes # (Manual) PT INR D-Dimer ABG pH POC ABG pCO2 POC ABG pO2 ABG pO2 ABG HCO3 ABG O2 Saturation ABG Base Excess ABG Hemoglobin ABG Oxyhemoglobin ABG Sodium ABG Potassium ABG Glucose Oxyhemoglobin Sodium Potassium Chloride Carbon Dioxide BUN Creatinine Glucose POC Glucose Lactic Acid 2.10 H* Phosphorus Magnesium Ferritin 877.5 H Lactate Dehydrogenase C-Reactive Protein NT-Pro-B Natriuret Pep Total Protein Albumin Triglycerides Arterial Blood Glucose Ur Specific [place] 1.041 H Coronavirus (PCR) 03/09/21 03/09/21 03/09/21 07:46 08:00 13:01 WBC RBC Hgb Hct MCV MCHC RDW Lymph % (Auto) [place] % (Auto) [place] # (Auto) Seg Neutrophils % Seg Neuts % (Manual) Lymphocytes % (Manual) Monocytes % (Manual) Nucleated RBC % Seg Neutrophils # Seg Neutrophils # Man Lymphocytes # (Manual) Monocytes # (Manual) PT INR D-Dimer ABG pH POC ABG pCO2 POC ABG pO2 ABG pO2 ABG HCO3 ABG O2 Saturation ABG Base Excess ABG Hemoglobin ABG Oxyhemoglobin ABG Sodium ABG Potassium ABG Glucose Oxyhemoglobin Sodium Potassium Chloride Carbon Dioxide BUN Creatinine Glucose POC Glucose 191 H 182 H Lactic Acid Phosphorus Magnesium Ferritin Lactate Dehydrogenase C-Reactive Protein NT-Pro-B Natriuret Pep Total Protein Albumin Triglycerides Arterial Blood Glucose Ur Specific [place] Coronavirus (PCR) Positive A 03/09/21 03/09/21 03/09/21 15:19 17:48 18:10 WBC RBC Hgb Hct MCV MCHC RDW Lymph % (Auto) [place] % (Auto) [place] # (Auto) Seg Neutrophils % Seg Neuts % (Manual) Lymphocytes % (Manual) Monocytes % (Manual) Nucleated RBC % Seg Neutrophils # Seg Neutrophils # Man Lymphocytes # (Manual) Monocytes # (Manual) PT INR D-Dimer ABG pH POC ABG pCO2 POC ABG pO2 ABG pO2 47.3 L ABG HCO3 26.3 H ABG O2 Saturation 83.7 L ABG Base Excess ABG Hemoglobin ABG Oxyhemoglobin ABG Sodium ABG Potassium ABG Glucose Oxyhemoglobin 82.1 L Sodium Potassium Chloride Carbon Dioxide BUN 29 H Creatinine Glucose 214 H POC Glucose 194 H Lactic Acid Phosphorus Magnesium Ferritin Lactate Dehydrogenase C-Reactive Protein NT-Pro-B Natriuret Pep Total Protein Albumin 3.4 L Triglycerides Arterial Blood Glucose Ur Specific [place] Coronavirus (PCR) 03/09/21 03/10/21 03/10/21 20:40 04:29 04:29 WBC 20.6 H RBC 5.07 H Hgb Hct 46.2 H MCV MCHC RDW Lymph % (Auto) [place] % (Auto) [place] # (Auto) Seg Neutrophils % Seg Neuts % (Manual) 94.0 H Lymphocytes % (Manual) 1.0 L Monocytes % (Manual) Nucleated RBC % 3.0 H Seg Neutrophils # Seg Neutrophils # Man 19.4 H Lymphocytes # (Manual) 0.2 L Monocytes # (Manual) 1.0 H PT INR D-Dimer ABG pH POC ABG pCO2 POC ABG pO2 ABG pO2 ABG HCO3 ABG O2 Saturation ABG Base Excess ABG Hemoglobin ABG Oxyhemoglobin ABG Sodium ABG Potassium ABG Glucose Oxyhemoglobin Sodium Potassium Chloride Carbon Dioxide BUN 29 H Creatinine Glucose 188 H POC Glucose 176 H Lactic Acid Phosphorus Magnesium Ferritin Lactate Dehydrogenase C-Reactive Protein NT-Pro-B Natriuret Pep Total Protein Albumin 3.3 L Triglycerides Arterial Blood Glucose Ur Specific [place] Coronavirus (PCR) 03/10/21 03/10/21 03/10/21 05:22 10:27 15:25 WBC RBC Hgb Hct MCV MCHC RDW Lymph % (Auto) [place] % (Auto) [place] # (Auto) Seg Neutrophils % Seg Neuts % (Manual) Lymphocytes % (Manual) Monocytes % (Manual) Nucleated RBC % Seg Neutrophils # Seg Neutrophils # Man Lymphocytes # (Manual) Monocytes # (Manual) PT INR D-Dimer ABG pH 7.488 H 7.488 H POC ABG pCO2 POC ABG pO2 ABG pO2 47.7 L 50.5 L ABG HCO3 ABG O2 Saturation 86.2 L 87.9 L ABG Base Excess ABG Hemoglobin ABG Oxyhemoglobin ABG Sodium ABG Potassium ABG Glucose Oxyhemoglobin 84.6 L 86.2 L Sodium Potassium Chloride Carbon Dioxide BUN Creatinine Glucose POC Glucose 155 H Lactic Acid Phosphorus Magnesium Ferritin Lactate Dehydrogenase C-Reactive Protein NT-Pro-B Natriuret Pep Total Protein Albumin Triglycerides Arterial Blood Glucose Ur Specific [place] Coronavirus (PCR) 03/10/21 03/10/21 03/11/21 18:10 18:55 00:07 WBC RBC Hgb Hct MCV MCHC RDW Lymph % (Auto) [place] % (Auto) [place] # (Auto) Seg Neutrophils % Seg Neuts % (Manual) Lymphocytes % (Manual) Monocytes % (Manual) Nucleated RBC % Seg Neutrophils # Seg Neutrophils # Man Lymphocytes # (Manual) Monocytes # (Manual) PT INR D-Dimer ABG pH 7.343 L POC ABG pCO2 POC ABG pO2 ABG pO2 60.4 L ABG HCO3 27.9 H ABG O2 Saturation 88.7 L ABG Base Excess ABG Hemoglobin ABG Oxyhemoglobin ABG Sodium ABG Potassium ABG Glucose Oxyhemoglobin 86.9 L Sodium Potassium Chloride Carbon Dioxide BUN Creatinine Glucose POC Glucose 187 H 139 H Lactic Acid Phosphorus Magnesium Ferritin Lactate Dehydrogenase C-Reactive Protein NT-Pro-B Natriuret Pep Total Protein Albumin Triglycerides Arterial Blood Glucose Ur Specific [place] Coronavirus (PCR) 03/11/21 03/11/21 03/11/21 02:09 04:28 08:06 WBC RBC Hgb Hct MCV MCHC RDW Lymph % (Auto) [place] % (Auto) [place] # (Auto) Seg Neutrophils % Seg Neuts % (Manual) Lymphocytes % (Manual) Monocytes % (Manual) Nucleated RBC % Seg Neutrophils # Seg Neutrophils # Man Lymphocytes # (Manual) Monocytes # (Manual) PT INR D-Dimer ABG pH 7.277 L POC ABG pCO2 55.9 H POC ABG pO2 54.4 L ABG pO2 ABG HCO3 ABG O2 Saturation ABG Base Excess ABG Hemoglobin ABG Oxyhemoglobin 83.0 L ABG Sodium ABG Potassium 4.8 H ABG Glucose 180 H Oxyhemoglobin Sodium Potassium Chloride Carbon Dioxide BUN 38 H Creatinine Glucose 249 H POC Glucose 278 H Lactic Acid Phosphorus Magnesium Ferritin Lactate Dehydrogenase C-Reactive Protein NT-Pro-B Natriuret Pep Total Protein Albumin 3.2 L Triglycerides Arterial Blood Glucose 180 H Ur Specific [place] Coronavirus (PCR) 03/11/21 03/11/21 03/11/21 11:29 15:06 15:48 WBC RBC Hgb Hct MCV MCHC RDW Lymph % (Auto) [place] % (Auto) [place] # (Auto) Seg Neutrophils % Seg Neuts % (Manual) Lymphocytes % (Manual) Monocytes % (Manual) Nucleated RBC % Seg Neutrophils # Seg Neutrophils # Man Lymphocytes # (Manual) Monocytes # (Manual) PT INR D-Dimer ABG pH 7.260 L POC ABG pCO2 POC ABG pO2 ABG pO2 53.5 L ABG HCO3 29.5 H ABG O2 Saturation 84.0 L ABG Base Excess ABG Hemoglobin ABG Oxyhemoglobin ABG Sodium ABG Potassium ABG Glucose Oxyhemoglobin 82.3 L Sodium Potassium Chloride Carbon Dioxide BUN Creatinine Glucose POC Glucose 288 H 295 H Lactic Acid Phosphorus Magnesium Ferritin Lactate Dehydrogenase C-Reactive Protein NT-Pro-B Natriuret Pep Total Protein Albumin Triglycerides Arterial Blood Glucose Ur Specific [place] Coronavirus (PCR) 03/12/21 03/12/21 03/12/21 00:01 05:24 08:03 WBC RBC Hgb Hct MCV MCHC RDW Lymph % (Auto) [place] % (Auto) [place] # (Auto) Seg Neutrophils % Seg Neuts % (Manual) Lymphocytes % (Manual) Monocytes % (Manual) Nucleated RBC % Seg Neutrophils # Seg Neutrophils # Man Lymphocytes # (Manual) Monocytes # (Manual) PT INR D-Dimer ABG pH POC ABG pCO2 POC ABG pO2 ABG pO2 ABG HCO3 ABG O2 Saturation ABG Base Excess ABG Hemoglobin ABG Oxyhemoglobin ABG Sodium ABG Potassium ABG Glucose Oxyhemoglobin Sodium 135 L Potassium Chloride Carbon Dioxide BUN 48 H Creatinine Glucose 358 H POC Glucose 304 H 310 H Lactic Acid Phosphorus Magnesium Ferritin Lactate Dehydrogenase C-Reactive Protein NT-Pro-B Natriuret Pep Total Protein 6.0 L Albumin 2.9 L Triglycerides Arterial Blood Glucose Ur Specific [place] Coronavirus (PCR) 03/12/21 03/12/21 03/12/21 08:03 10:43 11:31 WBC 14.6 H RBC Hgb Hct MCV MCHC RDW Lymph % (Auto) [place] % (Auto) [place] # (Auto) Seg Neutrophils % Seg Neuts % (Manual) Lymphocytes % (Manual) Monocytes % (Manual) Nucleated RBC % Seg Neutrophils # Seg Neutrophils # Man Lymphocytes # (Manual) Monocytes # (Manual) PT INR D-Dimer ABG pH 7.248 L POC ABG pCO2 POC ABG pO2 ABG pO2 73.7 L ABG HCO3 32.0 H ABG O2 Saturation 93.9 L ABG Base Excess ABG Hemoglobin ABG Oxyhemoglobin ABG Sodium ABG Potassium ABG Glucose Oxyhemoglobin 92.1 L Sodium Potassium Chloride Carbon Dioxide BUN Creatinine Glucose POC Glucose 359 H Lactic Acid Phosphorus Magnesium Ferritin Lactate Dehydrogenase C-Reactive Protein NT-Pro-B Natriuret Pep Total Protein Albumin Triglycerides Arterial Blood Glucose Ur Specific [place] Coronavirus (PCR) 03/12/21 03/12/21 03/13/21 17:20 21:54 00:02 WBC RBC Hgb Hct MCV MCHC RDW Lymph % (Auto) [place] % (Auto) [place] # (Auto) Seg Neutrophils % Seg Neuts % (Manual) Lymphocytes % (Manual) Monocytes % (Manual) Nucleated RBC % Seg Neutrophils # Seg Neutrophils # Man Lymphocytes # (Manual) Monocytes # (Manual) PT INR D-Dimer ABG pH 7.238 L POC ABG pCO2 71.9 H POC ABG pO2 53.6 L ABG pO2 ABG HCO3 ABG O2 Saturation ABG Base Excess ABG Hemoglobin ABG Oxyhemoglobin 84.8 L ABG Sodium 134.2 L ABG Potassium 4.9 H ABG Glucose 306 H Oxyhemoglobin Sodium Potassium Chloride Carbon Dioxide BUN Creatinine Glucose POC Glucose 374 H 308 H Lactic Acid Phosphorus Magnesium Ferritin Lactate Dehydrogenase C-Reactive Protein NT-Pro-B Natriuret Pep Total Protein Albumin Triglycerides Arterial Blood Glucose 306 H Ur Specific [place] Coronavirus (PCR) 03/13/21 03/13/21 03/13/21 05:22 05:44 05:44 WBC 13.9 H RBC Hgb Hct MCV MCHC RDW Lymph % (Auto) [place] % (Auto) [place] # (Auto) Seg Neutrophils % Seg Neuts % (Manual) Lymphocytes % (Manual) Monocytes % (Manual) Nucleated RBC % Seg Neutrophils # Seg Neutrophils # Man Lymphocytes # (Manual) Monocytes # (Manual) PT INR D-Dimer 3567.97 H ABG pH POC ABG pCO2 POC ABG pO2 ABG pO2 ABG HCO3 ABG O2 Saturation ABG Base Excess ABG Hemoglobin ABG Oxyhemoglobin ABG Sodium ABG Potassium ABG Glucose Oxyhemoglobin Sodium Potassium Chloride Carbon Dioxide BUN Creatinine Glucose POC Glucose 316 H Lactic Acid Phosphorus Magnesium Ferritin Lactate Dehydrogenase C-Reactive Protein NT-Pro-B Natriuret Pep Total Protein Albumin Triglycerides Arterial Blood Glucose Ur Specific [place] Coronavirus (PCR) 03/13/21 03/13/21 03/13/21 05:44 05:44 11:15 WBC RBC Hgb Hct MCV MCHC RDW Lymph % (Auto) [place] % (Auto) [place] # (Auto) Seg Neutrophils % Seg Neuts % (Manual) Lymphocytes % (Manual) Monocytes % (Manual) Nucleated RBC % Seg Neutrophils # Seg Neutrophils # Man Lymphocytes # (Manual) Monocytes # (Manual) PT INR D-Dimer ABG pH 7.310 L POC ABG pCO2 POC ABG pO2 ABG pO2 52.3 L ABG HCO3 34.1 H ABG O2 Saturation 86.8 L ABG Base Excess 5.5 H ABG Hemoglobin 13.8 L ABG Oxyhemoglobin ABG Sodium ABG Potassium ABG Glucose Oxyhemoglobin 85.1 L Sodium Potassium Chloride Carbon Dioxide BUN Creatinine Glucose POC Glucose Lactic Acid Phosphorus Magnesium Ferritin 858.7 H Lactate Dehydrogenase 348 H C-Reactive Protein 2.80 H NT-Pro-B Natriuret Pep Total Protein Albumin Triglycerides Arterial Blood Glucose Ur Specific [place] Coronavirus (PCR) 03/13/21 03/13/21 03/13/21 11:21 15:47 19:23 WBC RBC Hgb Hct MCV MCHC RDW Lymph % (Auto) [place] % (Auto) [place] # (Auto) Seg Neutrophils % Seg Neuts % (Manual) Lymphocytes % (Manual) Monocytes % (Manual) Nucleated RBC % Seg Neutrophils # Seg Neutrophils # Man Lymphocytes # (Manual) Monocytes # (Manual) PT INR D-Dimer ABG pH POC ABG pCO2 POC ABG pO2 ABG pO2 ABG HCO3 ABG O2 Saturation ABG Base Excess ABG Hemoglobin ABG Oxyhemoglobin ABG Sodium ABG Potassium ABG Glucose Oxyhemoglobin Sodium 136 L Potassium 5.9 H Chloride Carbon Dioxide BUN 50 H Creatinine Glucose 397 H POC Glucose 322 H 317 H Lactic Acid Phosphorus Magnesium Ferritin Lactate Dehydrogenase C-Reactive Protein NT-Pro-B Natriuret Pep Total Protein Albumin Triglycerides Arterial Blood Glucose Ur Specific [place] Coronavirus (PCR) 03/13/21 03/14/21 03/14/21 23:46 05:32 05:50 WBC 11.6 H RBC Hgb Hct MCV MCHC RDW Lymph % (Auto) [place] % (Auto) [place] # (Auto) Seg Neutrophils % Seg Neuts % (Manual) Lymphocytes % (Manual) Monocytes % (Manual) Nucleated RBC % Seg Neutrophils # Seg Neutrophils # Man Lymphocytes # (Manual) Monocytes # (Manual) PT INR D-Dimer ABG pH POC ABG pCO2 POC ABG pO2 ABG pO2 ABG HCO3 ABG O2 Saturation ABG Base Excess ABG Hemoglobin ABG Oxyhemoglobin ABG Sodium ABG Potassium ABG Glucose Oxyhemoglobin Sodium Potassium Chloride Carbon Dioxide BUN Creatinine Glucose POC Glucose 332 H 316 H Lactic Acid Phosphorus Magnesium Ferritin Lactate Dehydrogenase C-Reactive Protein NT-Pro-B Natriuret Pep Total Protein Albumin Triglycerides Arterial Blood Glucose Ur Specific [place] Coronavirus (PCR) 03/14/21 03/14/21 03/14/21 05:50 11:33 16:53 WBC RBC Hgb Hct MCV MCHC RDW Lymph % (Auto) [place] % (Auto) [place] # (Auto) Seg Neutrophils % Seg Neuts % (Manual) Lymphocytes % (Manual) Monocytes % (Manual) Nucleated RBC % Seg Neutrophils # Seg Neutrophils # Man Lymphocytes # (Manual) Monocytes # (Manual) PT INR D-Dimer ABG pH POC ABG pCO2 POC ABG pO2 ABG pO2 ABG HCO3 ABG O2 Saturation ABG Base Excess ABG Hemoglobin ABG Oxyhemoglobin ABG Sodium ABG Potassium ABG Glucose Oxyhemoglobin Sodium Potassium 5.9 H Chloride Carbon Dioxide 31 H BUN 48 H Creatinine Glucose 380 H POC Glucose 315 H 235 H Lactic Acid Phosphorus Magnesium 3.40 H Ferritin Lactate Dehydrogenase C-Reactive Protein NT-Pro-B Natriuret Pep Total Protein Albumin Triglycerides Arterial Blood Glucose Ur Specific [place] Coronavirus (PCR) 03/14/21 03/14/21 03/15/21 18:34 23:27 01:22 WBC RBC Hgb Hct 46.3 H MCV MCHC RDW Lymph % (Auto) [place] % (Auto) [place] # (Auto) Seg Neutrophils % Seg Neuts % (Manual) Lymphocytes % (Manual) Monocytes % (Manual) Nucleated RBC % Seg Neutrophils # Seg Neutrophils # Man Lymphocytes # (Manual) Monocytes # (Manual) PT INR D-Dimer ABG pH POC ABG pCO2 POC ABG pO2 ABG pO2 ABG HCO3 ABG O2 Saturation ABG Base Excess ABG Hemoglobin ABG Oxyhemoglobin ABG Sodium ABG Potassium ABG Glucose Oxyhemoglobin Sodium 146 H Potassium Chloride Carbon Dioxide 34 H BUN 49 H Creatinine Glucose 285 H POC Glucose 203 H Lactic Acid Phosphorus Magnesium Ferritin Lactate Dehydrogenase C-Reactive Protein NT-Pro-B Natriuret Pep Total Protein Albumin Triglycerides Arterial Blood Glucose Ur Specific [place] Coronavirus (PCR) 03/15/21 03/15/21 03/15/21 04:00 06:06 06:06 WBC RBC Hgb Hct MCV MCHC RDW Lymph % (Auto) [place] % (Auto) [place] # (Auto) Seg Neutrophils % Seg Neuts % (Manual) Lymphocytes % (Manual) Monocytes % (Manual) Nucleated RBC % Seg Neutrophils # Seg Neutrophils # Man Lymphocytes # (Manual) Monocytes # (Manual) PT INR D-Dimer 1781.79 H ABG pH POC ABG pCO2 POC ABG pO2 ABG pO2 ABG HCO3 ABG O2 Saturation ABG Base Excess ABG Hemoglobin ABG Oxyhemoglobin ABG Sodium ABG Potassium ABG Glucose Oxyhemoglobin Sodium 148 H Potassium 5.7 H D Chloride 108.0 H Carbon Dioxide 31 H BUN 46 H Creatinine Glucose 139 H POC Glucose Lactic Acid Phosphorus 4.80 H D Magnesium 3.00 H Ferritin 976.4 H Lactate Dehydrogenase 630 H C-Reactive Protein NT-Pro-B Natriuret Pep Total Protein Albumin Triglycerides Arterial Blood Glucose Ur Specific [place] Coronavirus (PCR) 03/15/21 03/15/21 03/15/21 11:56 14:05 17:09 WBC RBC Hgb Hct MCV MCHC RDW Lymph % (Auto) [place] % (Auto) [place] # (Auto) Seg Neutrophils % Seg Neuts % (Manual) Lymphocytes % (Manual) Monocytes % (Manual) Nucleated RBC % Seg Neutrophils # Seg Neutrophils # Man Lymphocytes # (Manual) Monocytes # (Manual) PT INR D-Dimer ABG pH POC ABG pCO2 POC ABG pO2 ABG pO2 52.1 L ABG HCO3 36.6 H ABG O2 Saturation 87.6 L ABG Base Excess 9.5 H ABG Hemoglobin ABG Oxyhemoglobin ABG Sodium ABG Potassium ABG Glucose Oxyhemoglobin 85.7 L Sodium Potassium Chloride Carbon Dioxide BUN Creatinine Glucose POC Glucose 219 H 263 H Lactic Acid Phosphorus Magnesium Ferritin Lactate Dehydrogenase C-Reactive Protein NT-Pro-B Natriuret Pep Total Protein Albumin Triglycerides Arterial Blood Glucose Ur Specific [place] Coronavirus (PCR) 03/16/21 03/16/21 03/16/21 00:32 04:11 04:11 WBC 11.9 H RBC Hgb Hct MCV MCHC 30 L RDW Lymph % (Auto) [place] % (Auto) [place] # (Auto) Seg Neutrophils % Seg Neuts % (Manual) Lymphocytes % (Manual) Monocytes % (Manual) Nucleated RBC % Seg Neutrophils # Seg Neutrophils # Man Lymphocytes # (Manual) Monocytes # (Manual) PT INR D-Dimer ABG pH POC ABG pCO2 POC ABG pO2 ABG pO2 ABG HCO3 ABG O2 Saturation ABG Base Excess ABG Hemoglobin ABG Oxyhemoglobin ABG Sodium ABG Potassium ABG Glucose Oxyhemoglobin Sodium 151 H Potassium Chloride Carbon Dioxide 35 H BUN 48 H Creatinine Glucose 152 H POC Glucose 165 H Lactic Acid Phosphorus Magnesium Ferritin Lactate Dehydrogenase C-Reactive Protein NT-Pro-B Natriuret Pep Total Protein Albumin Triglycerides Arterial Blood Glucose Ur Specific [place] Coronavirus (PCR) 03/16/21 03/16/21 03/16/21 04:11 05:26 11:35 WBC RBC Hgb Hct MCV MCHC RDW Lymph % (Auto) [place] % (Auto) [place] # (Auto) Seg Neutrophils % Seg Neuts % (Manual) Lymphocytes % (Manual) Monocytes % (Manual) Nucleated RBC % Seg Neutrophils # Seg Neutrophils # Man Lymphocytes # (Manual) Monocytes # (Manual) PT INR D-Dimer ABG pH POC ABG pCO2 POC ABG pO2 ABG pO2 ABG HCO3 ABG O2 Saturation ABG Base Excess ABG Hemoglobin ABG Oxyhemoglobin ABG Sodium ABG Potassium ABG Glucose Oxyhemoglobin Sodium Potassium Chloride Carbon Dioxide BUN Creatinine Glucose POC Glucose 162 H 187 H Lactic Acid Phosphorus Magnesium Ferritin Lactate Dehydrogenase C-Reactive Protein NT-Pro-B Natriuret Pep Total Protein Albumin Triglycerides 267 H Arterial Blood Glucose Ur Specific [place] Coronavirus (PCR) 03/16/21 03/16/21 03/16/21 17:29 22:25 23:22 WBC RBC Hgb Hct MCV MCHC RDW Lymph % (Auto) [place] % (Auto) [place] # (Auto) Seg Neutrophils % Seg Neuts % (Manual) Lymphocytes % (Manual) Monocytes % (Manual) Nucleated RBC % Seg Neutrophils # Seg Neutrophils # Man Lymphocytes # (Manual) Monocytes # (Manual) PT INR D-Dimer ABG pH POC ABG pCO2 POC ABG pO2 ABG pO2 ABG HCO3 ABG O2 Saturation ABG Base Excess ABG Hemoglobin ABG Oxyhemoglobin ABG Sodium ABG Potassium ABG Glucose Oxyhemoglobin Sodium Potassium Chloride Carbon Dioxide BUN Creatinine Glucose POC Glucose 237 H 165 H 189 H Lactic Acid Phosphorus Magnesium Ferritin Lactate Dehydrogenase C-Reactive Protein NT-Pro-B Natriuret Pep Total Protein Albumin Triglycerides Arterial Blood Glucose Ur Specific [place] Coronavirus (PCR) 03/17/21 03/17/21 03/17/21 04:40 04:40 04:40 WBC 14.1 H RBC Hgb Hct MCV MCHC RDW 15.3 H Lymph % (Auto) 12.6 L [place] % (Auto) 11.3 H [place] # (Auto) 1.6 H Seg Neutrophils % 74.9 H Seg Neuts % (Manual) Lymphocytes % (Manual) Monocytes % (Manual) Nucleated RBC % Seg Neutrophils # 10.5 H Seg Neutrophils # Man Lymphocytes # (Manual) Monocytes # (Manual) PT INR D-Dimer 1359.12 H ABG pH POC ABG pCO2 POC ABG pO2 ABG pO2 ABG HCO3 ABG O2 Saturation ABG Base Excess ABG Hemoglobin ABG Oxyhemoglobin ABG Sodium ABG Potassium ABG Glucose Oxyhemoglobin Sodium 148 H Potassium Chloride 107.5 H Carbon Dioxide 33 H BUN 42 H Creatinine Glucose 183 H POC Glucose Lactic Acid Phosphorus Magnesium 2.70 H Ferritin Lactate Dehydrogenase C-Reactive Protein NT-Pro-B Natriuret Pep Total Protein Albumin Triglycerides Arterial Blood Glucose Ur Specific [place] Coronavirus (PCR) 03/17/21 03/17/21 03/17/21 05:53 11:05 11:51 WBC RBC Hgb Hct MCV MCHC RDW Lymph % (Auto) [place] % (Auto) [place] # (Auto) Seg Neutrophils % Seg Neuts % (Manual) Lymphocytes % (Manual) Monocytes % (Manual) Nucleated RBC % Seg Neutrophils # Seg Neutrophils # Man Lymphocytes # (Manual) Monocytes # (Manual) PT INR D-Dimer ABG pH POC ABG pCO2 POC ABG pO2 ABG pO2 ABG HCO3 35.7 H ABG O2 Saturation ABG Base Excess 8.7 H ABG Hemoglobin ABG Oxyhemoglobin ABG Sodium ABG Potassium ABG Glucose Oxyhemoglobin 94.2 L Sodium Potassium Chloride Carbon Dioxide BUN Creatinine Glucose POC Glucose 176 H 197 H Lactic Acid Phosphorus Magnesium Ferritin Lactate Dehydrogenase C-Reactive Protein NT-Pro-B Natriuret Pep Total Protein Albumin Triglycerides Arterial Blood Glucose Ur Specific [place] Coronavirus (PCR) 03/17/21 03/17/21 03/17/21 16:54 21:10 23:33 WBC RBC Hgb Hct MCV MCHC RDW Lymph % (Auto) [place] % (Auto) [place] # (Auto) Seg Neutrophils % Seg Neuts % (Manual) Lymphocytes % (Manual) Monocytes % (Manual) Nucleated RBC % Seg Neutrophils # Seg Neutrophils # Man Lymphocytes # (Manual) Monocytes # (Manual) PT INR D-Dimer ABG pH POC ABG pCO2 POC ABG pO2 ABG pO2 ABG HCO3 ABG O2 Saturation ABG Base Excess ABG Hemoglobin ABG Oxyhemoglobin ABG Sodium ABG Potassium ABG Glucose Oxyhemoglobin Sodium Potassium Chloride Carbon Dioxide BUN Creatinine Glucose POC Glucose 135 H 160 H 138 H Lactic Acid Phosphorus Magnesium Ferritin Lactate Dehydrogenase C-Reactive Protein NT-Pro-B Natriuret Pep Total Protein Albumin Triglycerides Arterial Blood Glucose Ur Specific [place] Coronavirus (PCR) 03/18/21 03/18/21 03/18/21 04:18 04:50 05:43 WBC RBC Hgb Hct MCV MCHC RDW Lymph % (Auto) [place] % (Auto) [place] # (Auto) Seg Neutrophils % Seg Neuts % (Manual) Lymphocytes % (Manual) Monocytes % (Manual) Nucleated RBC % Seg Neutrophils # Seg Neutrophils # Man Lymphocytes # (Manual) Monocytes # (Manual) PT INR D-Dimer ABG pH POC ABG pCO2 POC ABG pO2 ABG pO2 59.8 L ABG HCO3 36.5 H ABG O2 Saturation 90.7 L ABG Base Excess 9.4 H ABG Hemoglobin 12.0 L ABG Oxyhemoglobin ABG Sodium ABG Potassium ABG Glucose Oxyhemoglobin 88.9 L Sodium Potassium Chloride 107.2 H Carbon Dioxide 34 H BUN 38 H Creatinine 0.7 L Glucose 136 H POC Glucose 128 H Lactic Acid Phosphorus Magnesium Ferritin Lactate Dehydrogenase C-Reactive Protein NT-Pro-B Natriuret Pep Total Protein Albumin Triglycerides Arterial Blood Glucose Ur Specific [place] Coronavirus (PCR) 03/18/21 03/18/21 03/18/21 11:20 17:35 23:35 WBC RBC Hgb Hct MCV MCHC RDW Lymph % (Auto) [place] % (Auto) [place] # (Auto) Seg Neutrophils % Seg Neuts % (Manual) Lymphocytes % (Manual) Monocytes % (Manual) Nucleated RBC % Seg Neutrophils # Seg Neutrophils # Man Lymphocytes # (Manual) Monocytes # (Manual) PT INR D-Dimer ABG pH POC ABG pCO2 POC ABG pO2 ABG pO2 70.7 L ABG HCO3 33.6 H ABG O2 Saturation ABG Base Excess 8.0 H ABG Hemoglobin ABG Oxyhemoglobin ABG Sodium ABG Potassium ABG Glucose Oxyhemoglobin 93.7 L Sodium Potassium Chloride Carbon Dioxide BUN Creatinine Glucose POC Glucose 189 H 144 H Lactic Acid Phosphorus Magnesium Ferritin Lactate Dehydrogenase C-Reactive Protein NT-Pro-B Natriuret Pep Total Protein Albumin Triglycerides Arterial Blood Glucose Ur Specific [place] Coronavirus (PCR) 03/19/21 03/19/21 03/19/21 02:35 04:20 04:20 WBC 14.0 H RBC Hgb Hct MCV MCHC RDW Lymph % (Auto) [place] % (Auto) [place] # (Auto) Seg Neutrophils % Seg Neuts % (Manual) Lymphocytes % (Manual) Monocytes % (Manual) Nucleated RBC % Seg Neutrophils # Seg Neutrophils # Man Lymphocytes # (Manual) Monocytes # (Manual) PT INR D-Dimer ABG pH POC ABG pCO2 POC ABG pO2 ABG pO2 ABG HCO3 32.0 H ABG O2 Saturation ABG Base Excess 5.2 H ABG Hemoglobin 13.6 L ABG Oxyhemoglobin ABG Sodium ABG Potassium ABG Glucose Oxyhemoglobin 94.6 L Sodium 146 H Potassium Chloride 109.3 H Carbon Dioxide BUN 36 H Creatinine Glucose 203 H POC Glucose Lactic Acid Phosphorus Magnesium Ferritin Lactate Dehydrogenase C-Reactive Protein NT-Pro-B Natriuret Pep Total Protein Albumin Triglycerides 254 H Arterial Blood Glucose Ur Specific [place] Coronavirus (PCR) 03/19/21 03/19/21 03/19/21 05:45 11:36 23:51 WBC RBC Hgb Hct MCV MCHC RDW Lymph % (Auto) [place] % (Auto) [place] # (Auto) Seg Neutrophils % Seg Neuts % (Manual) Lymphocytes % (Manual) Monocytes % (Manual) Nucleated RBC % Seg Neutrophils # Seg Neutrophils # Man Lymphocytes # (Manual) Monocytes # (Manual) PT INR D-Dimer ABG pH POC ABG pCO2 POC ABG pO2 ABG pO2 ABG HCO3 ABG O2 Saturation ABG Base Excess ABG Hemoglobin ABG Oxyhemoglobin ABG Sodium ABG Potassium ABG Glucose Oxyhemoglobin Sodium Potassium Chloride Carbon Dioxide BUN Creatinine Glucose POC Glucose 164 H 172 H 140 H Lactic Acid Phosphorus Magnesium Ferritin Lactate Dehydrogenase C-Reactive Protein NT-Pro-B Natriuret Pep Total Protein Albumin Triglycerides Arterial Blood Glucose Ur Specific [place] Coronavirus (PCR) 03/20/21 03/20/21 03/20/21 03:29 04:45 04:45 WBC RBC Hgb Hct MCV 95 H MCHC RDW 15.7 H Lymph % (Auto) [place] % (Auto) [place] # (Auto) Seg Neutrophils % Seg Neuts % (Manual) Lymphocytes % (Manual) Monocytes % (Manual) Nucleated RBC % Seg Neutrophils # Seg Neutrophils # Man Lymphocytes # (Manual) Monocytes # (Manual) PT INR D-Dimer ABG pH 7.349 L POC ABG pCO2 POC ABG pO2 ABG pO2 ABG HCO3 33.7 H ABG O2 Saturation ABG Base Excess 6.4 H ABG Hemoglobin 11.8 L ABG Oxyhemoglobin ABG Sodium ABG Potassium ABG Glucose Oxyhemoglobin 93.9 L Sodium 146 H Potassium 5.5 H Chloride 111.1 H Carbon Dioxide BUN 34 H Creatinine 0.7 L Glucose 145 H POC Glucose Lactic Acid Phosphorus Magnesium 2.50 H Ferritin Lactate Dehydrogenase C-Reactive Protein NT-Pro-B Natriuret Pep Total Protein Albumin Triglycerides Arterial Blood Glucose Ur Specific [place] Coronavirus (PCR) 03/20/21 03/20/21 03/20/21 05:41 09:08 11:54 WBC RBC Hgb Hct MCV MCHC RDW Lymph % (Auto) [place] % (Auto) [place] # (Auto) Seg Neutrophils % Seg Neuts % (Manual) Lymphocytes % (Manual) Monocytes % (Manual) Nucleated RBC % Seg Neutrophils # Seg Neutrophils # Man Lymphocytes # (Manual) Monocytes # (Manual) PT INR D-Dimer ABG pH POC ABG pCO2 POC ABG pO2 ABG pO2 ABG HCO3 ABG O2 Saturation ABG Base Excess ABG Hemoglobin ABG Oxyhemoglobin ABG Sodium ABG Potassium ABG Glucose Oxyhemoglobin Sodium Potassium Chloride Carbon Dioxide BUN Creatinine Glucose POC Glucose 108 H 132 H 162 H Lactic Acid Phosphorus Magnesium Ferritin Lactate Dehydrogenase C-Reactive Protein NT-Pro-B Natriuret Pep Total Protein Albumin Triglycerides Arterial Blood Glucose Ur Specific [place] Coronavirus (PCR) Allied health notes reviewed: RT
--- NOTE | 2021-03-20 15:06 | Progress Note ---
Assessment and Plan Cultures: SARS CoV2 PCR: positive 03/08/2021 blood culture: no growth 03/10/2021 sputum culture: Usual respiratory marlyn 03/16/2021 blood culture: In process 03/18/2021 sputum culture: Stenotrophomonas A/P: 61-year-old male with diabetes, hypertension admitted to the hospital with complaints of shortness of breath and feeling weak for the last 1 week: #Sepsis secondary to bilateral pneumonia: secondary to COVID-19. Elevated inflammatory markers. WBC 22.6, creatinine 1.3, ferritin 877, CRP 18.0, LDH 624, procalcitonin 0.18. D-dimer >10k. CTA negative for pulmonary embolism, severe patchy groundglass opacities. #New fever: probably COVID related. #Acute hypoxic respiratory failure: initially required BiPAP, now intubated, on the vent. #DM #HTN Recs: -Stop Vanco and cefepime -Start Bactrim stenotrophomonas. Steno also colonizes tube, as such would change when possible -Continue steroids per pulm, on solumedrol, would not extend beyond 10 days especially since patient also received Actemra. -completed IV remdesivir -s/p Actemra 03/10/2021 -prophylactic anticoagulation based on d-dimer per hospital protocol Nayan Goins MD [facility] ([facility] O: [phone] F: [phone] Subjective Date of service: 03/20/21 Principal diagnosis: COVID-19 infection; DM II; Bilateral pneumonia; Obesity; HTN Interval history: Afebrile with T-max 100.3, remains tachycardic. White count 9.8. Sputum culture with stenotrophomonas. Remains on the vent. Imaging personally reviewed: X-ray: Diffuse pulmonary opacities bilaterally. Objective - Exam Narrative Exam: Physical exam deferred to reduce risk of transmission of COVID-19. Please refer to primary team's note. - Constitutional Vitals: Vital Signs Temp Pulse Resp BP Pulse Ox 99.9 F H 129 H 27 H 154/86 87 03/20/21 12:00 03/20/21 13:05 03/20/21 12:30 03/20/21 13:05 03/20/21 12:30 Temperature -Last 24 Hours Temperature 99.9 F Temperature 100.3 F Temperature 98.9 F Temperature 99.7 F Temperature 98.6 F Temperature 98.5 F - Labs CBC & Chem 7: 03/20/21 04:45 03/20/21 04:45 Labs: Abnormal lab results 03/19/21 03/20/21 03/20/21 Range/Units 23:51 03:29 04:45 MCV 95 H (84-94) fl RDW 15.7 H (13.2-15.2) % ABG pH 7.349 L (7.350-7.450) pH Units ABG HCO3 33.7 H (20.0-26.0) mmol/L ABG Base Excess 6.4 H (-2.0-3.0) mmol/L ABG Hemoglobin 11.8 L (14.0-18.0) gm/dl Oxyhemoglobin 93.9 L (95.0-99.0) % Sodium (137-145) mmol/L Potassium (3.6-5.0) mmol/L Chloride (98-107) mmol/L BUN (9-20) mg/dL Creatinine (0.8-1.3) mg/dL Glucose (75-100) mg/dL POC Glucose 140 H (70-105) mg/dL Magnesium (1.7-2.3) mg/dL 03/20/21 03/20/21 03/20/21 Range/Units 04:45 05:41 09:08 MCV (84-94) fl RDW (13.2-15.2) % ABG pH (7.350-7.450) pH Units ABG HCO3 (20.0-26.0) mmol/L ABG Base Excess (-2.0-3.0) mmol/L ABG Hemoglobin (14.0-18.0) gm/dl Oxyhemoglobin (95.0-99.0) % Sodium 146 H (137-145) mmol/L Potassium 5.5 H (3.6-5.0) mmol/L Chloride 111.1 H (98-107) mmol/L BUN 34 H (9-20) mg/dL Creatinine 0.7 L (0.8-1.3) mg/dL Glucose 145 H (75-100) mg/dL POC Glucose 108 H 132 H (70-105) mg/dL Magnesium 2.50 H (1.7-2.3) mg/dL 03/20/21 Range/Units 11:54 MCV (84-94) fl RDW (13.2-15.2) % ABG pH (7.350-7.450) pH Units ABG HCO3 (20.0-26.0) mmol/L ABG Base Excess (-2.0-3.0) mmol/L ABG Hemoglobin (14.0-18.0) gm/dl Oxyhemoglobin (95.0-99.0) % Sodium (137-145) mmol/L Potassium (3.6-5.0) mmol/L Chloride (98-107) mmol/L BUN (9-20) mg/dL Creatinine (0.8-1.3) mg/dL Glucose (75-100) mg/dL POC Glucose 162 H (70-105) mg/dL Magnesium (1.7-2.3) mg/dL
[2021-03-20] MEDS ORDERED: QUEtiapine 100 MG TAB PO SCH (16:00)
[2021-03-20] MEDS: SULFAMETHOXAZOLE/TRIMETHOPRIM 800/160MG DS TAB PO SCH ×2 (16:32→21:23)
--- NOTE | 2021-03-20 17:31 | Progress Note ---
<FLORIANMARISABEL TrishLester - Last Filed: 03/20/21 18:40> Assessment and Plan Assessment and plan: This is a 61-year-old man with HTN and DM admitted with COVID-19 pneumonia, acute hypoxic respiratory failure, sepsis Severe sepsis (POA), COVID 19 PNA, Stenotrophomonas Maltophillia in trachial aspirate, Leukocytosis (resolved) -Infectious disease consulted, appreciate recommendation -S/p Actemra 03/10/2021 -IV remdesivir for 5 days -Solumederol 60mg q 8 -weaning started today -Prophylactic anticoagulation per hospital protocol -Droplet/isolation precautions -Monitor WBC and temperature curve -03/08 blood culture x2 with no growth to date and tracheal aspirate GNR -stopped vanco this AM -Speciated to Stenotrophomonas Maltophillia -started on bactrim Acute hypoxic respiratory failure -CCM consulted, appreciate recommendations -CT chest shows severe patchy multifocal ground glass airspace disease -Intubated on 03/10 with a 7.50 ETT at 20 for the lips -A.m. vent settings: Assist control tidal volume 450, rate 25, PEEP 8, FiO2 45% -See RT notes for titration -A.m. ABG and CXR noted -VAP bundle -SPO2 monitoring -Albuterol as needed, Brovana and Pulmicort Acute Metabolic Encephalopathy -Avoid delirium -Reorientation as needed -Sedated with propofol and fentanyl -RASS goal -1 to -2 -As needed analgesia -Maintain sleep-wake cycle -Bilateral restraints in place for safety -SAT and SBT when appropriate Hyperkalemia -PO Kionex -Strict intake and output via Good catheter -Trend BMP Leukocytosis, elevated D-dimer -Bilateral lower extremity ultrasound negative for DVT, superficial thrombus in left gastrocnemius vein -CTA chest shows no gross pulm embolism -Trend CBC -SCDs to BLE while in bed -Transfuse hemoglobin less than 7 -Treatment dose Lovenox -Monitor for signs of bleeding h/o HTN -Blood pressure monitoring per protocol -Cardiology consulted, appreciate recommendations -Echocardiogram shows a mildly dilated ascending aorta, normal LV systolic f unction, mild concentric LVH, LVEF 60 to 65% -Hydralazine p.o. Obesity -24 hours +3423 mL -PPI -NTR consulted for tube feedings -BR: Senokot Endo: h/o DM -Avoid hypoglycemia -SSI, lantus->increase as needed -Accu-Cheks q. 6 The high probability of a clinically significant, sudden or life threatening deterioration of the [multi] system(s) required my full and direct attention, intervention and personal management. The aggregate critical care time was [60] minutes. This time is in addition to time spent performing reported procedures but includes the following: [x] Data Review and interpretation [x] Patient assessment and monitoring of vital signs [x] Documentation [x] Medication orders and management Disposition Plan: icu Total Time Spent with Patient (Minutes): 60 History Interval history: This is a 61-year-old male with HTN and DM who presented to the emergency department on 03/09 with shortness of breath and hypoxia via EMS. Patient had apparently been feeling ill for proxy 1 week prior to mentation. Upon EMS arrival patient SPO2 was in the low 70s and improved to upper 80slow 90s on nonrebreather and he was transported to [facility] in the emergency department patient was noted to be hypoxic and placed on a BiPAP with improvement to mentation and hypoxia. CXR showed bilateral patchy infiltrates. Lab work showed leukocytosis, elevated D-dimer, hyponatremia, hypochloremia and elevated COVID-19 markers with elevated BNP. CTA chest showed no pulmonary embolism. Patient was admitted to the hospitalist service as a COVID-19 PUI and started on antibiotics and Decadron with consult to infectious disease. 03/09: The patient was seen and evaluated today, and he was found to be hemodynamically stable. The patient is currently on BiPAP for possible COVID-19 pneumonia. He was started on Lovenox 1mg/kg for DVT ppx in the setting of d- dimer > 10,000. Infectious Disease was consulted. The patient is pending a TTE. 03/10: No acute events overnight, patient was intubated in the afternoon transferred to ICU 03/11: Patient started on Lantus, free water flushes increased, propofol drip resumed and oral antihypertensive added. 03/12: lantus increased, k at 5, will monitor. I updated his family and his stated that he is not vaccinated. He does have HTN and she will call the RN to update home medications. She did say he takes bystolic and amlopine. She inquired about ventilator and lab work. She had no further questions. 03/13: KVNG overnight. Patient remains hyperglycemic, basal insulin adjusted and increased to Q12hrs. Patient is overall net positive since admit X1 dose of IV lasix, repeat BMP this afternoon. 03/14: Failed SAT this am due to increase agitation, tachycardia and hypertension. Remains on propofol and fentanyl gtt. Hyperkalemia treated with PO kayaxalate. Patient responded to IV lasix yesterday additional dose again today for a net negative balance. Repeat BMP this afternoon. Insulin adjusted for hyperglycemia. 03/15: Remains encephalopathic, not following commansd. Orders placed for CT head/Brain and Neuro consulted. Rectal bleeding subsided, most likely due to hemorrhoids. H&H is stable will continue to monitor. Kayaxexalate for high K, repeat labs 4 to 6hrs post treatment. 03/16: Still agiated this am, CT head with no acute Abn. CXR and ABG noted- evolving pna and worsening hypoxia, now with low grade fevers. Sputum culture ordered, IV Abx added, ID on cosult. 03/17: This am ABG noted, hypoxia improved. Continue to wean FiO2 as tolerated. Still with low grade fevers, on IV Abx per ID. Still with periods of confusion despite sedation, seroquel increased. F/u CXR in the am 03/18: still very agitated especially when off sedation, with hypertension and tachycardia. Continue sedation for RASS -2, PRN antihypertensive for SPB greater than 160. This febrile this am, continue current IV abx per ID 03/19: Patient afebrile overnight, continue IV Abx per ID. ABG also improved this am, continue to wean FIO2 as tolerated. PRN antihypertensive for hypertension. 03/20: Hyperkalemia treated with Kayexalate, Good discontinued, vancomycin and cefepime stopped started Bactrim by ID. Steroid taper started. Hospitalist Physical - Constitutional Vitals: Temp Pulse Resp BP Pulse Ox 99.9 F H 110 H 30 H 125/65 92 03/20/21 12:00 03/20/21 16:19 03/20/21 16:19 03/20/21 16:19 03/20/21 16:19 General appearance: Present: no acute distress, well-nourished, obese, other (Intubated and sedated) - EENT Eyes: Present: PERRL, EOM intact ENT: hearing intact, clear oral mucosa, dentition normal - Neck Neck: Present: normal ROM - Respiratory Respiratory effort: normal Respiratory: bilateral: diminished - Cardiovascular Rhythm: regular Heart Sounds: Present: S1 & S2, systolic murmur, diastolic murmur - Extremities Extremities: no ischemia, pulses intact, pulses symmetrical, No edema, normal temperature, normal color Peripheral Pulses: within normal limits - Abdominal General gastrointestinal: soft, non-tender, non-distended - Integumentary Integumentary: Present: warm, dry - Psychiatric Psychiatric: cooperative - Neurologic Neurologic: CNII-XII intact, no focal deficits - Allied Health Allied health notes reviewed: nursing, RT, social work Results - Labs CBC & Chem 7: 03/20/21 04:45 03/20/21 04:45 Labs: Laboratory Last Values WBC 9.8 K/mm3 (4.5-11.0) 03/20/21 04:45 RBC 4.01 M/mm3 (3.65-5.03) 03/20/21 04:45 Hgb 12.0 gm/dl (11.8-15.2) 03/20/21 04:45 Hct 37.9 % (35.5-45.6) 03/20/21 04:45 MCV 95 fl (84-94) H 03/20/21 04:45 MCH 30 pg (28-32) 03/20/21 04:45 MCHC 32 % (32-34) 03/20/21 04:45 RDW 15.7 % (13.2-15.2) H 03/20/21 04:45 Plt Count 259 K/mm3 (140-440) 03/20/21 04:45 Lymph % (Auto) 12.6 % (13.4-35.0) L 03/17/21 04:40 Dent % (Auto) 11.3 % (0.0-7.3) H 03/17/21 04:40 Eos % (Auto) 0.4 % (0.0-4.3) 03/17/21 04:40 Baso % (Auto) 0.8 % (0.0-1.8) 03/17/21 04:40 Lymph # (Auto) 1.8 K/mm3 (1.2-5.4) 03/17/21 04:40 Dent # (Auto) 1.6 K/mm3 (0.0-0.8) H 03/17/21 04:40 Eos # (Auto) 0.1 K/mm3 (0.0-0.4) 03/17/21 04:40 Baso # (Auto) 0.1 K/mm3 (0.0-0.1) 03/17/21 04:40 Add Manual Diff Complete 03/10/21 04:29 Total Counted 100 03/10/21 04:29 Seg Neutrophils % 74.9 % (40.0-70.0) H 03/17/21 04:40 Seg Neuts % (Manual) 94.0 % (40.0-70.0) H 03/10/21 04:29 Band Neutrophils % 0 % 03/10/21 04:29 Lymphocytes % (Manual) 1.0 % (13.4-35.0) L 03/10/21 04:29 Reactive Lymphs % (Man) 0 % 03/10/21 04:29 Monocytes % (Manual) 5.0 % (0.0-7.3) 03/10/21 04:29 Eosinophils % (Manual) 0 % (0.0-4.3) 03/10/21 04:29 Basophils % (Manual) 0 % (0.0-1.8) 03/10/21 04:29 Metamyelocytes % 0 % 03/10/21 04:29 Myelocytes % 0 % 03/10/21 04:29 Promyelocytes % 0 % 03/10/21 04:29 Blast Cells % 0 % 03/10/21 04:29 Nucleated RBC % 3.0 % (0.0-0.9) H 03/10/21 04:29 Seg Neutrophils # 10.5 K/mm3 (1.8-7.7) H 03/17/21 04:40 Seg Neutrophils # Man 19.4 K/mm3 (1.8-7.7) H 03/10/21 04:29 Band Neutrophils # 0.0 K/mm3 03/10/21 04:29 Lymphocytes # (Manual) 0.2 K/mm3 (1.2-5.4) L 03/10/21 04:29 Abs React Lymphs (Man) 0.0 K/mm3 03/10/21 04:29 Monocytes # (Manual) 1.0 K/mm3 (0.0-0.8) H 03/10/21 04:29 Eosinophils # (Manual) 0.0 K/mm3 (0.0-0.4) 03/10/21 04:29 Basophils # (Manual) 0.0 K/mm3 (0.0-0.1) 03/10/21 04:29 Metamyelocytes # 0.0 K/mm3 03/10/21 04:29 Myelocytes # 0.0 K/mm3 03/10/21 04:29 Promyelocytes # 0.0 K/mm3 03/10/21 04:29 Blast Cells # 0.0 K/mm3 03/10/21 04:29 WBC Morphology Not Reportable 03/10/21 04:29 Hypersegmented Neuts Not Reportable 03/10/21 04:29 Hyposegmented Neuts Not Reportable 03/10/21 04:29 Hypogranular Neuts Not Reportable 03/10/21 04:29 Smudge Cells Not Reportable 03/10/21 04:29 Toxic Granulation Not Reportable 03/10/21 04:29 Toxic Vacuolation Not Reportable 03/10/21 04:29 Dohle Bodies Not Reportable 03/10/21 04:29 Pelger-Huet Anomaly Not Reportable 03/10/21 04:29 Mely Rods Not Reportable 03/10/21 04:29 Platelet Estimate Consistent w auto 03/10/21 04:29 Clumped Platelets Not Reportable 03/10/21 04:29 Plt Clumps, EDTA Not Reportable 03/10/21 04:29 Large Platelets Not Reportable 03/10/21 04:29 Giant Platelets Not Reportable 03/10/21 04:29 Platelet Satelliting Not Reportable 03/10/21 04:29 Plt Morphology Comment Not Reportable 03/10/21 04:29 RBC Morphology Normal 03/10/21 04:29 Dimorphic RBCs Not Reportable 03/10/21 04:29 Polychromasia Not Reportable 03/10/21 04:29 Hypochromasia Not Reportable 03/10/21 04:29 Poikilocytosis Not Reportable 03/10/21 04:29 Anisocytosis Not Reportable 03/10/21 04:29 Microcytosis Not Reportable 03/10/21 04:29 Macrocytosis Not Reportable 03/10/21 04:29 Spherocytes Not Reportable 03/10/21 04:29 Pappenheimer Bodies Not Reportable 03/10/21 04:29 Sickle Cells Not Reportable 03/10/21 04:29 Target Cells Not Reportable 03/10/21 04:29 Tear Drop Cells Not Reportable 03/10/21 04:29 Ovalocytes Not Reportable 03/10/21 04:29 Helmet Cells Not Reportable 03/10/21 04:29 [place] Bodies Not Reportable 03/10/21 04:29 [place] Rings Not Reportable 03/10/21 04:29 Shama Cells Not Reportable 03/10/21 04:29 Bite Cells Not Reportable 03/10/21 04:29 Crenated Cell Not Reportable 03/10/21 04:29 Elliptocytes Not Reportable 03/10/21 04:29 Acanthocytes (Spur) Not Reportable 03/10/21 04:29 Rouleaux Not Reportable 03/10/21 04:29 Hemoglobin C Crystals Not Reportable 03/10/21 04:29 Schistocytes Not Reportable 03/10/21 04:29 Malaria parasites Not Reportable 03/10/21 04:29 Shaheen Bodies Not Reportable 03/10/21 04:29 Hem Pathologist Commnt No 03/10/21 04:29 PT 16.1 Sec. (12.2-14.9) H 03/08/21 20:24 INR 1.17 (0.87-1.13) H 03/08/21 20:24 APTT 28.0 Sec. (24.2-36.6) 03/08/21 20:24 D-Dimer 1359.12 ng/mlDDU (0-234) H 03/17/21 04:40 ABG pH 7.349 pH Units (7.350-7.450) L 03/20/21 03:29 POC ABG pCO2 71.9 mmHg (32.0-48.0) H 03/12/21 21:54 ABG pCO2 62.6 mm Hg 03/20/21 03:29 POC ABG pO2 53.6 mmHg (83-108) L 03/12/21 21:54 ABG pO2 83.9 mm Hg (80.0-90.0) 03/20/21 03:29 POC ABG HCO3 30.0 03/12/21 21:54 ABG HCO3 33.7 mmol/L (20.0-26.0) H 03/20/21 03:29 ABG O2 Saturation 95.8 % (95.0-99.0) 03/20/21 03:29 ABG O2 Content 15.7 (0.0-44) 03/20/21 03:29 POC ABG Base Excess 0.5 03/12/21 21:54 ABG Base Excess 6.4 mmol/L (-2.0-3.0) H 03/20/21 03:29 ABG Hemoglobin 11.8 gm/dl (14.0-18.0) L 03/20/21 03:29 ABG Oxyhemoglobin 84.8 (94-98) L 03/12/21 21:54 ABG Carboxyhemoglobin 1.3 % (0.0-5.0) 03/20/21 03:29 ABG Methemoglobin 0.6 % (0.0-1.5) 03/20/21 03:29 ABG Sodium 134.2 mmol/L (136.0-145.0) L 03/12/21 21:54 ABG Potassium 4.9 mmol/L (3.40-4.50) H 03/12/21 21:54 ABG Chloride 99.0 mmol/L (98-107) 03/12/21 21:54 ABG Glucose 306 mg/dL (65-95) H 03/12/21 21:54 Oxyhemoglobin 93.9 % (95.0-99.0) L 03/20/21 03:29 Carboxyhemoglobin 0.6 (0.5-1.5) 03/12/21 21:54 FiO2 45 % 03/20/21 03:29 FiO2 % 50.0 03/12/21 21:54 Sodium 146 mmol/L (137-145) H 03/20/21 04:45 Potassium 5.5 mmol/L (3.6-5.0) H 03/20/21 04:45 Chloride 111.1 mmol/L (98-107) H 03/20/21 04:45 Carbon Dioxide 27 mmol/L (22-30) 03/20/21 04:45 Anion Gap 13 mmol/L 03/20/21 04:45 BUN 34 mg/dL (9-20) H 03/20/21 04:45 Creatinine 0.7 mg/dL (0.8-1.3) L 03/20/21 04:45 Estimated GFR > 60 ml/min 03/20/21 04:45 BUN/Creatinine Ratio 49 % 03/20/21 04:45 Glucose 145 mg/dL (75-100) H 03/20/21 04:45 POC Glucose 162 mg/dL (70-105) H 03/20/21 11:54 Lactic Acid 1.90 mmol/L (0.7-2.0) 03/08/21 23:51 Calcium 8.5 mg/dL (8.4-10.2) 03/20/21 04:45 Phosphorus 4.10 mg/dL (2.5-4.5) 03/20/21 04:45 Magnesium 2.50 mg/dL (1.7-2.3) H 03/20/21 04:45 Ferritin 976.4 ng/mL (30.0-300.0) H 03/15/21 04:00 Total Bilirubin 0.20 mg/dL (0.1-1.2) 03/12/21 08:03 AST 10 units/L (5-40) 03/12/21 08:03 ALT 16 units/L (7-56) 03/12/21 08:03 Alkaline Phosphatase 77 units/L (35-129) 03/12/21 08:03 Lactate Dehydrogenase 630 units/L (91-180) H 03/15/21 06:06 C-Reactive Protein 0.40 mg/dL (0.00-1.30) 03/17/21 04:40 NT-Pro-B Natriuret Pep 1053 pg/mL (0-900) H 03/08/21 20:24 Total Protein 6.0 g/dL (6.3-8.2) L 03/12/21 08:03 Albumin 2.9 g/dL (3.9-5) L 03/12/21 08:03 Albumin/Globulin Ratio 0.9 % 03/12/21 08:03 Triglycerides 254 mg/dL (2-149) H 03/19/21 04:20 Procalcitonin 0.05 ng/mL (<0.15) 03/17/21 04:40 Arterial Blood Glucose 306 mg/dL (65-95) H 03/12/21 21:54 Arterial Blood Ionized Calcium 5.0 mg/dL (4.6-5.3) 03/12/21 21:54 Urine Color Yellow (Yellow) 03/09/21 04:10 Urine Turbidity Slightly-cloudy (Clear) 03/09/21 04:10 Urine pH 5.0 (5.0-7.0) 03/09/21 04:10 Ur Specific [place] 1.041 (1.003-1.030) H 03/09/21 04:10 Urine Protein 100 mg/dl mg/dL (Negative) 03/09/21 04:10 Urine Glucose (UA) Neg mg/dL (Negative) 03/09/21 04:10 Urine Ketones Neg mg/dL (Negative) 03/09/21 04:10 Urine Blood Mod (Negative) 03/09/21 04:10 Urine Nitrite Neg (Negative) 03/09/21 04:10 Urine Bilirubin Neg (Negative) 03/09/21 04:10 Urine Urobilinogen 2.0 mg/dL (<2.0) 03/09/21 04:10 Ur Leukocyte Esterase Neg (Negative) 03/09/21 04:10 Urine WBC (Auto) 4.0 /HPF (0.0-6.0) 03/09/21 04:10 Urine RBC (Auto) 1.0 /HPF (0.0-6.0) 03/09/21 04:10 Urine Bacteria (Auto) 1+ /HPF (Negative) 03/09/21 04:10 Urine Mucus Few /HPF 03/09/21 04:10 Coronavirus (PCR) Positive (Negative) A 03/09/21 08:00 Microbiology: Microbiology 03/16/21 13:51 Peripheral/Venous Blood Culture - Preliminary NO GROWTH AFTER 4 DAYS 03/16/21 13:51 Peripheral/Venous Blood Culture - Preliminary NO GROWTH AFTER 4 DAYS 03/17/21 14:27 Tracheal Aspirate Sputum Culture - Preliminary Stenotrophomonas Maltophilia Good/IV: Voiding Method Indwelling Catheter Active Medications - Current Medications Current Medications: Generic Name Dose Route Start Last Admin Trade Name Freq PRN Reason Stop Dose Admin Acetaminophen 650 mg 03/09/21 01:26 03/17/21 12:08 Acetaminophen 325 Mg Tab PO 650 mg Q4H PRN Administration Pain MILD(1-3)/Fever >100.5/RAYO Albuterol 2.5 mg 03/09/21 01:26 03/18/21 21:06 Albuterol 2.5 Mg/3 Ml Nebu IH 2.5 mg Q4HRT PRN Administration Shortness Of Breath Albuterol/Ipratropium 1 ampul 03/11/21 08:00 03/20/21 16:19 Ipratropium/Albuterol Sulfate 3 Ml Ampul.Neb IH 1 ampul TIDRT BLANCA Administration Arformoterol Tartrate 15 mcg 03/11/21 20:00 03/20/21 08:50 Arformoterol 15 Mcg/2 Ml Nebu IH 15 mcg Q12HRT BLANCA Administration Ascorbic Acid 500 mg 03/10/21 14:00 03/20/21 09:00 Ascorbic Acid 500 Mg Tab PO 500 mg BID BLANCA Administration Budesonide 0.25 mg 03/11/21 20:00 03/20/21 08:50 Budesonide 0.25 Mg/2 Ml Nebu IH 0.25 mg Q12HRT BLANCA Administration Dextrose 0 ml 03/20/21 10:52 Dextrose 10% *Hypoglycemia IV PRN PRN Hypoglycemia Enoxaparin Sodium 120 mg 03/20/21 22:00 Enoxaparin 120 Mg/0.8 Ml Inj SUB-Q Q12HR [facility] Protocol Famotidine 20 mg 03/12/21 22:00 03/20/21 09:00 Famotidine 20 Mg Tab FEEDTUBE 20 mg BID BLANCA Administration Hydralazine HCl 10 mg 03/09/21 01:36 03/20/21 09:22 Hydralazine 20 Mg/1 Ml Inj IV 10 mg Q6H PRN Administration Blood Pressure Hydralazine HCl 50 mg 03/11/21 17:00 03/20/21 13:05 Hydralazine 25 Mg Tab PO 50 mg Q8HR BLANCA Administration Hydrophilic Ointment 1 applic 03/10/21 15:39 Lip Therapy Vaseline TP Q2HR PRN Dry Lips Fentanyl Citrate 2,000 mcg in 100 mls @ 5.897 mls/hr 03/10/21 17:00 03/20/21 14:11 Fentanyl Drip Premix IV 4 mcg/kg/hr TITR BLANCA 23.587 mls/hr Administration Protocol 1 MCG/KG/HR Propofol 1,000 mg in 100 mls @ 3.507 mls/hr 03/11/21 17:00 03/20/21 16:20 Diprivan 10 Mg/Ml IV 50 mcg/kg/min TITR BLANCA 35.07 mls/hr Administration Protocol 5 MCG/KG/MIN Insulin Glargine 25 units 03/14/21 10:00 03/20/21 10:00 Insulin Glargine 100 Units/Ml SUB-Q 25 units BID BLANCA Administration Insulin Human Lispro 0 unit 03/11/21 18:00 03/20/21 12:55 Insulin Lispro 100 Unit/Ml SUB-Q 3 unit Q6HR [facility] Administration Protocol Insulin Human Regular 5 units 03/14/21 12:00 03/20/21 12:29 Insulin Regular, Human 100 Units/1 Ml SUB-Q Not Given Q6HR [facility] Labetalol HCl 10 mg 03/12/21 21:13 03/18/21 16:56 Labetalol 20 Mg/4 Ml Inj IV 10 mg Q6H PRN Administration Blood Pressure Methylprednisolone Sodium Succinate 40 mg 03/21/21 06:00 Methylprednisolone Sod Succinate 40 Mg/1 Ml Inj IV 03/24/21 05:59 Q8HR [facility] Midazolam HCl 2 mg 03/15/21 08:49 03/20/21 15:15 Midazolam 2 Mg/2 Ml Inj IV 2 mg Q2H PRN Administration VENT SYNCHRONY Multi-Ingred Cream/Lotion/Oil/Oint 1 applic 03/10/21 15:39 Mineral Oil/Petrolatum, White Ophth Oint 3.5 Gm OU Q4HR PRN Dry Eye(s) Ondansetron HCl 4 mg 03/09/21 01:26 Ondansetron 4 Mg/2 Ml Inj IV Q8H PRN Nausea And Vomiting Quetiapine Fumarate 250 mg 03/20/21 22:00 Quetiapine 100 Mg Tab PO BID [facility] Senna/Docusate Sodium 1 tab 03/10/21 22:00 03/20/21 09:10 Sennosides/Docusate Sodium 8.6/50 Mg Tab FEEDTUBE Not Given BID [facility] Sodium Chloride 10 ml 03/09/21 10:00 03/20/21 09:10 Sodium Chloride 0.9% 10 Ml Flush Syringe IV 10 ml BID BLANCA Administration Sodium Chloride 10 ml 03/09/21 01:26 Sodium Chloride 0.9% 10 Ml Flush Syringe IV PRN PRN LINE FLUSH Sodium Chloride 10 ml 03/20/21 08:39 03/20/21 13:04 Sodium Chloride 0.9% 500 Ml Ivpb IV 10 ml PRN PRN Administration FLUSH Sodium Chloride 10 ml 03/20/21 09:48 Sodium Chloride 0.9% 50 Ml Ivpb IV PRN PRN FLUSH Trimethoprim/Sulfamethoxazole 1 each 03/20/21 16:00 03/20/21 16:32 Sulfamethoxazole/Trimethoprim 800/160mg Ds Tab PO 1 each Q12HR BLANCA Administration Protocol Zinc Sulfate 220 mg 03/10/21 14:00 03/20/21 09:00 Zinc Sulfate 220 Mg Cap PO 220 mg BID BLANCA Administration Nutrition/Malnutrition Assess - Dietary Evaluation Nutrition/Malnutrition Findings: Nutrition Notes Start: 03/09/21 08:49 Freq: Status: Active Protocol: Document 03/20/21 16:21 BRYANNA (Rec: 03/20/21 16:53 BRYANNA [id number]) Nutrition Notes Current Diagnosis Diabetes,Sepsis,Hypertension, Respiratory Failure Other Pertinent Diagnosis COVID-19, Bilateral Pneumonia. Current Diet TF-Glucerna 1.2 Tyson at 40 ml/ hr (since D 03/17). Labs/Tests 03/20: Na 146, K 5.5, Cl 111.1 , BUN 34, Crea 0.7, Glu 145, Mg 2.5. Pertinent Medications 03/20: Vit C, Insulin, ZnSO4, Propofol @ 35.07 ml/hr ( 926Kcal), others nutritionally unremarkable. Height 5 ft 11 in Weight 120 kg [place] Body Weight (kg) 78.18 BMI 36.8 Weight change and time frame 3.0 Kg body weight gain in 3 days reported. Weight Status Obese Subjective/Other Information RD consult for routine F/U on TF tolerance. Pt remains on mechanical ventilation, according to Progre[facility] notes. TF continues as prescribed. Pt continues with low-grade fever. Percent of energy/protein needs met: Prescribed Glucerna 1.2 Tyson @ 40 ml/hr provides for energy/ protein needs (1,152 Kcal/58 g ) during LOS, additionally, Propofol contributes with 926 Kcal, 87% Kcal; 46% AA. #1 Nutrition Diagnosis Inadequate oral intake Diagnosis Progress(for reassessment Continues documentation) Nutrition Intervention Nutrition Support: Continue Glucerna 1.2 @ 40 ml/ hr. Flush: 200ml water Q 4 hr ( until hypernatremia resolved). Kcal 1,152 Protein (gm) 58 Carbohydrates (gm) 110 Fat (gm) 58 Fluid (mL) 773 Fiber (gm) 15 % RDI: 48% Kcal; 46% AA. Goal #1 Provide at least 75% of energy /protein needs through Enteral Feeding during LOS. Follow-Up By: 03/27/21 Additional Comments Continue monitoring TF tolerance and BM. <ARABELLA CASTILLO - Last Filed: 03/24/21 09:40> Assessment and Plan Assessment and plan: I saw and evaluated the patient. I agree with the findings and the plan of care as documented in the Nurse Practitioner's~note, with the following corrections and additions. Hospitalist Physical - Constitutional Vitals: Temp Pulse Resp BP Pulse Ox 99.2 F 110 H 24 110/68 91 03/24/21 08:00 03/24/21 08:59 03/24/21 08:59 03/24/21 07:48 03/24/21 07:48 Results - Labs CBC & Chem 7: 03/24/21 04:34 03/24/21 04:34 Labs: Laboratory Last Values WBC 13.3 K/mm3 (4.5-11.0) H 03/24/21 04:34 RBC 4.35 M/mm3 (3.65-5.03) 03/24/21 04:34 Hgb 12.8 gm/dl (11.8-15.2) 03/24/21 04:34 Hct 40.8 % (35.5-45.6) 03/24/21 04:34 MCV 94 fl (84-94) 03/24/21 04:34 MCH 30 pg (28-32) 03/24/21 04:34 MCHC 31 % (32-34) L 03/24/21 04:34 RDW 16.1 % (13.2-15.2) H 03/24/21 04:34 Plt Count 171 K/mm3 (140-440) 03/24/21 04:34 Lymph % (Auto) 12.6 % (13.4-35.0) L 03/17/21 04:40 Dent % (Auto) 11.3 % (0.0-7.3) H 03/17/21 04:40 Eos % (Auto) 0.4 % (0.0-4.3) 03/17/21 04:40 Baso % (Auto) 0.8 % (0.0-1.8) 03/17/21 04:40 Lymph # (Auto) 1.8 K/mm3 (1.2-5.4) 03/17/21 04:40 Dent # (Auto) 1.6 K/mm3 (0.0-0.8) H 03/17/21 04:40 Eos # (Auto) 0.1 K/mm3 (0.0-0.4) 03/17/21 04:40 Baso # (Auto) 0.1 K/mm3 (0.0-0.1) 03/17/21 04:40 Add Manual Diff Complete 03/10/21 04:29 Total Counted 100 03/10/21 04:29 Seg Neutrophils % 74.9 % (40.0-70.0) H 03/17/21 04:40 Seg Neuts % (Manual) 94.0 % (40.0-70.0) H 03/10/21 04:29 Band Neutrophils % 0 % 03/10/21 04:29 Lymphocytes % (Manual) 1.0 % (13.4-35.0) L 03/10/21 04:29 Reactive Lymphs % (Man) 0 % 03/10/21 04:29 Monocytes % (Manual) 5.0 % (0.0-7.3) 03/10/21 04:29 Eosinophils % (Manual) 0 % (0.0-4.3) 03/10/21 04:29 Basophils % (Manual) 0 % (0.0-1.8) 03/10/21 04:29 Metamyelocytes % 0 % 03/10/21 04:29 Myelocytes % 0 % 03/10/21 04:29 Promyelocytes % 0 % 03/10/21 04:29 Blast Cells % 0 % 03/10/21 04:29 Nucleated RBC % 3.0 % (0.0-0.9) H 03/10/21 04:29 Seg Neutrophils # 10.5 K/mm3 (1.8-7.7) H 03/17/21 04:40 Seg Neutrophils # Man 19.4 K/mm3 (1.8-7.7) H 03/10/21 04:29 Band Neutrophils # 0.0 K/mm3 03/10/21 04:29 Lymphocytes # (Manual) 0.2 K/mm3 (1.2-5.4) L 03/10/21 04:29 Abs React Lymphs (Man) 0.0 K/mm3 03/10/21 04:29 Monocytes # (Manual) 1.0 K/mm3 (0.0-0.8) H 03/10/21 04:29 Eosinophils # (Manual) 0.0 K/mm3 (0.0-0.4) 03/10/21 04:29 Basophils # (Manual) 0.0 K/mm3 (0.0-0.1) 03/10/21 04:29 Metamyelocytes # 0.0 K/mm3 03/10/21 04:29 Myelocytes # 0.0 K/mm3 03/10/21 04:29 Promyelocytes # 0.0 K/mm3 03/10/21 04:29 Blast Cells # 0.0 K/mm3 03/10/21 04:29 WBC Morphology Not Reportable 03/10/21 04:29 Hypersegmented Neuts Not Reportable 03/10/21 04:29 Hyposegmented Neuts Not Reportable 03/10/21 04:29 Hypogranular Neuts Not Reportable 03/10/21 04:29 Smudge Cells Not Reportable 03/10/21 04:29 Toxic Granulation Not Reportable 03/10/21 04:29 Toxic Vacuolation Not Reportable 03/10/21 04:29 Dohle Bodies Not Reportable 03/10/21 04:29 Pelger-Huet Anomaly Not Reportable 03/10/21 04:29 Mely Rods Not Reportable 03/10/21 04:29 Platelet Estimate Consistent w auto 03/10/21 04:29 Clumped Platelets Not Reportable 03/10/21 04:29 Plt Clumps, EDTA Not Reportable 03/10/21 04:29 Large Platelets Not Reportable 03/10/21 04:29 Giant Platelets Not Reportable 03/10/21 04:29 Platelet Satelliting Not Reportable 03/10/21 04:29 Plt Morphology Comment Not Reportable 03/10/21 04:29 RBC Morphology Normal 03/10/21 04:29 Dimorphic RBCs Not Reportable 03/10/21 04:29 Polychromasia Not Reportable 03/10/21 04:29 Hypochromasia Not Reportable 03/10/21 04:29 Poikilocytosis Not Reportable 03/10/21 04:29 Anisocytosis Not Reportable 03/10/21 04:29 Microcytosis Not Reportable 03/10/21 04:29 Macrocytosis Not Reportable 03/10/21 04:29 Spherocytes Not Reportable 03/10/21 04:29 Pappenheimer Bodies Not Reportable 03/10/21 04:29 Sickle Cells Not Reportable 03/10/21 04:29 Target Cells Not Reportable 03/10/21 04:29 Tear Drop Cells Not Reportable 03/10/21 04:29 Ovalocytes Not Reportable 03/10/21 04:29 Helmet Cells Not Reportable 03/10/21 04:29 [place] Bodies Not Reportable 03/10/21 04:29 [place] Rings Not Reportable 03/10/21 04:29 [place] Cells Not Reportable 03/10/21 04:29 Bite Cells Not Reportable 03/10/21 04:29 Crenated Cell Not Reportable 03/10/21 04:29 Elliptocytes Not Reportable 03/10/21 04:29 Acanthocytes (Spur) Not Reportable 03/10/21 04:29 Rouleaux Not Reportable 03/10/21 04:29 Hemoglobin C Crystals Not Reportable 03/10/21 04:29 Schistocytes Not Reportable 03/10/21 04:29 Malaria parasites Not Reportable 03/10/21 04:29 [place] Bodies Not Reportable 03/10/21 04:29 Hem Pathologist Commnt No 03/10/21 04:29 PT 16.1 Sec. (12.2-14.9) H 03/08/21 20:24 INR 1.17 (0.87-1.13) H 03/08/21 20:24 APTT 28.0 Sec. (24.2-36.6) 03/08/21 20:24 D-Dimer 1359.12 ng/mlDDU (0-234) H 03/17/21 04:40 ABG pH 7.345 pH Units (7.350-7.450) L 03/23/21 08:35 POC ABG pCO2 71.9 mmHg (32.0-48.0) H 03/12/21 21:54 ABG pCO2 60.4 mm Hg 03/23/21 08:35 POC ABG pO2 53.6 mmHg (83-108) L 03/12/21 21:54 ABG pO2 167.9 mm Hg (80.0-90.0) H 03/23/21 08:35 POC ABG HCO3 30.0 03/12/21 21:54 ABG HCO3 32.2 mmol/L (20.0-26.0) H 03/23/21 08:35 ABG O2 Saturation 98.9 % (95.0-99.0) 03/23/21 08:35 ABG O2 Content 18.6 (0.0-44) 03/23/21 08:35 POC ABG Base Excess 0.5 03/12/21 21:54 ABG Base Excess 4.8 mmol/L (-2.0-3.0) H 03/23/21 08:35 ABG Hemoglobin 13.4 gm/dl (14.0-18.0) L 03/23/21 08:35 ABG Oxyhemoglobin 84.8 (94-98) L 03/12/21 21:54 ABG Carboxyhemoglobin 1.5 % (0.0-5.0) 03/23/21 08:35 ABG Methemoglobin 0.8 % (0.0-1.5) 03/23/21 08:35 ABG Sodium 134.2 mmol/L (136.0-145.0) L 03/12/21 21:54 ABG Potassium 4.9 mmol/L (3.40-4.50) H 03/12/21 21:54 ABG Chloride 99.0 mmol/L (98-107) 03/12/21 21:54 ABG Glucose 306 mg/dL (65-95) H 03/12/21 21:54 Oxyhemoglobin 96.6 % (95.0-99.0) 03/23/21 08:35 Carboxyhemoglobin 0.6 (0.5-1.5) 03/12/21 21:54 FiO2 100 % 03/23/21 08:35 FiO2 % 50.0 03/12/21 21:54 Sodium 143 mmol/L (137-145) 03/24/21 04:34 Potassium 5.2 mmol/L (3.6-5.0) H 03/24/21 04:34 Chloride 106.9 mmol/L (98-107) 03/24/21 04:34 Carbon Dioxide 29 mmol/L (22-30) 03/24/21 04:34 Anion Gap 12 mmol/L 03/24/21 04:34 BUN 28 mg/dL (9-20) H 03/24/21 04:34 Creatinine 0.7 mg/dL (0.8-1.3) L 03/24/21 04:34 Estimated GFR > 60 ml/min 03/24/21 04:34 BUN/Creatinine Ratio 40 % 03/24/21 04:34 Glucose 152 mg/dL (75-100) H 03/24/21 04:34 POC Glucose 141 mg/dL (70-105) H 03/24/21 05:20 Lactic Acid 1.90 mmol/L (0.7-2.0) 03/08/21 23:51 Calcium 9.0 mg/dL (8.4-10.2) 03/24/21 04:34 Phosphorus 3.20 mg/dL (2.5-4.5) D 03/23/21 07:04 Magnesium 2.50 mg/dL (1.7-2.3) H 03/23/21 07:04 Ferritin 976.4 ng/mL (30.0-300.0) H 03/15/21 04:00 Total Bilirubin 0.20 mg/dL (0.1-1.2) 03/12/21 08:03 AST 10 units/L (5-40) 03/12/21 08:03 ALT 16 units/L (7-56) 03/12/21 08:03 Alkaline Phosphatase 77 units/L (35-129) 03/12/21 08:03 Lactate Dehydrogenase 630 units/L (91-180) H 03/15/21 06:06 C-Reactive Protein 0.40 mg/dL (0.00-1.30) 03/17/21 04:40 NT-Pro-B Natriuret Pep 1053 pg/mL (0-900) H 03/08/21 20:24 Total Protein 6.0 g/dL (6.3-8.2) L 03/12/21 08:03 Albumin 2.9 g/dL (3.9-5) L 03/12/21 08:03 Albumin/Globulin Ratio 0.9 % 03/12/21 08:03 Triglycerides 305 mg/dL (2-149) H 03/22/21 07:26 Procalcitonin 0.05 ng/mL (<0.15) 03/17/21 04:40 Arterial Blood Glucose 306 mg/dL (65-95) H 03/12/21 21:54 Arterial Blood Ionized Calcium 5.0 mg/dL (4.6-5.3) 03/12/21 21:54 Urine Color Yellow (Yellow) 03/09/21 04:10 Urine Turbidity Slightly-cloudy (Clear) 03/09/21 04:10 Urine pH 5.0 (5.0-7.0) 03/09/21 04:10 Ur Specific [place] 1.041 (1.003-1.030) H 03/09/21 04:10 Urine Protein 100 mg/dl mg/dL (Negative) 03/09/21 04:10 Urine Glucose (UA) Neg mg/dL (Negative) 03/09/21 04:10 Urine Ketones Neg mg/dL (Negative) 03/09/21 04:10 Urine Blood Mod (Negative) 03/09/21 04:10 Urine Nitrite Neg (Negative) 03/09/21 04:10 Urine Bilirubin Neg (Negative) 03/09/21 04:10 Urine Urobilinogen 2.0 mg/dL (<2.0) 03/09/21 04:10 Ur Leukocyte Esterase Neg (Negative) 03/09/21 04:10 Urine WBC (Auto) 4.0 /HPF (0.0-6.0) 03/09/21 04:10 Urine RBC (Auto) 1.0 /HPF (0.0-6.0) 03/09/21 04:10 Urine Bacteria (Auto) 1+ /HPF (Negative) 03/09/21 04:10 Urine Mucus Few /HPF 03/09/21 04:10 Coronavirus (PCR) Positive (Negative) A 03/09/21 08:00 Miscellaneous Test Flexitest 1 03/16/21 13:14 Good/IV: Voiding Method Indwelling Catheter Active Medications - Current Medications Current Medications: Generic Name Dose Route Start Last Admin Trade Name Freq PRN Reason Stop Dose Admin Acetaminophen 650 mg 03/09/21 01:26 03/23/21 10:03 Acetaminophen 325 Mg Tab PO 650 mg Q4H PRN Administration Pain MILD(1-3)/Fever >100.5/RAYO Albuterol 2.5 mg 03/09/21 01:26 03/18/21 21:06 Albuterol 2.5 Mg/3 Ml Nebu IH 2.5 mg Q4HRT PRN Administration Shortness Of Breath Arformoterol Tartrate 15 mcg 03/11/21 20:00 03/24/21 08:59 Arformoterol 15 Mcg/2 Ml Nebu IH 15 mcg Q12HRT BLANCA Administration Ascorbic Acid 500 mg 03/10/21 14:00 03/23/21 21:05 Ascorbic Acid 500 Mg Tab PO 500 mg BID BLANCA Administration Budesonide 0.25 mg 03/11/21 20:00 03/24/21 08:59 Budesonide 0.25 Mg/2 Ml Nebu IH 0.25 mg Q12HRT BLANCA Administration Chlordiazepoxide HCl 75 mg 03/22/21 18:00 03/24/21 06:08 Chlordiazepoxide 25 Mg Cap PO Not Given Q6HR BLANCA Dextrose 0 ml 03/20/21 10:52 Dextrose 10% *Hypoglycemia IV PRN PRN Hypoglycemia Doxazosin Mesylate 1 mg 03/23/21 14:00 03/23/21 14:00 Doxazosin 1 Mg Tab PO Not Given QDAY [facility] Enoxaparin Sodium 60 mg 03/24/21 10:00 Enoxaparin 60 Mg/0.6 Ml Inj SUB-Q QDAY [facility] Protocol Famotidine 20 mg 03/12/21 22:00 03/23/21 21:05 Famotidine 20 Mg Tab FEEDTUBE 20 mg BID BLANCA Administration Hydralazine HCl 50 mg 03/23/21 14:26 03/24/21 06:01 Hydralazine 25 Mg Tab PO 50 mg Q8HR BLANCA Administration Hydrophilic Ointment 1 applic 03/10/21 15:39 Lip Therapy Vaseline TP Q2HR PRN Dry Lips Fentanyl Citrate 2,000 mcg in 100 mls @ 5.897 mls/hr 03/10/21 17:00 03/23/21 22:52 Fentanyl Drip Premix IV 2 mcg/kg/hr TITR BLANCA 11.793 mls/hr Administration Protocol 1 MCG/KG/HR Propofol 1,000 mg in 100 mls @ 3.507 mls/hr 03/11/21 17:00 03/22/21 18:02 Diprivan 10 Mg/Ml IV 0 mcg/kg/min TITR BLANCA 0 mls/hr Titration Protocol 5 MCG/KG/MIN Insulin Glargine 25 units 03/14/21 10:00 03/23/21 21:07 Insulin Glargine 100 Units/Ml SUB-Q 25 units BID [facility] Administration Insulin Human Lispro 0 unit 03/11/21 18:00 03/24/21 06:08 Insulin Lispro 100 Unit/Ml SUB-Q Not Given Q6HR [facility] Protocol Labetalol HCl 10 mg 03/12/21 21:13 03/21/21 16:54 Labetalol 20 Mg/4 Ml Inj IV 10 mg Q6H PRN Administration Blood Pressure Methylprednisolone Sodium Succinate 40 mg 03/28/21 10:00 Methylprednisolone Sod Succinate 40 Mg/1 Ml Inj IV 03/29/21 10:01 Q24HR [facility] Methylprednisolone Sodium Succinate 40 mg 03/24/21 22:00 Methylprednisolone Sod Succinate 40 Mg/1 Ml Inj IV 03/27/21 22:01 Q12HR@2200 [facility] Metoprolol Tartrate 12.5 mg 03/21/21 22:00 03/23/21 21:03 Metoprolol Tartrate 25 Mg Tab PO 12.5 mg BID [facility] Administration Midazolam HCl 2 mg 03/15/21 08:49 03/23/21 07:58 Midazolam 2 Mg/2 Ml Inj IV 2 mg Q2H PRN Administration VENT SYNCHRONY Multi-Ingred Cream/Lotion/Oil/Oint 1 applic 03/10/21 15:39 Mineral Oil/Petrolatum, White Ophth Oint 3.5 Gm OU Q4HR PRN Dry Eye(s) Ondansetron HCl 4 mg 03/09/21 01:26 Ondansetron 4 Mg/2 Ml Inj IV Q8H PRN Nausea And Vomiting Phenyleph/Shark Oil/Min Oil/Petrol 1 applic 03/22/21 17:35 Pe/Mo/Pet,Wh 10 Applic/28 Gm Tube AR Q6HR PRN Hemorrhoids Prednisone 10 mg 03/30/21 10:00 Prednisone 10 Mg Tab PO DAILY BLANCA Quetiapine Fumarate 300 mg 03/21/21 22:00 03/23/21 21:05 Quetiapine 100 Mg Tab PO 300 mg BID BLANCA Administration Senna/Docusate Sodium 1 tab 03/10/21 22:00 03/23/21 21:03 Sennosides/Docusate Sodium 8.6/50 Mg Tab FEEDTUBE 1 tab BID BLANCA Administration Sodium Chloride 10 ml 03/09/21 10:00 03/23/21 10:04 Sodium Chloride 0.9% 10 Ml Flush Syringe IV Not Given BID BLANCA Sodium Chloride 10 ml 03/09/21 01:26 Sodium Chloride 0.9% 10 Ml Flush Syringe IV PRN PRN LINE FLUSH Sodium Chloride 10 ml 03/20/21 09:48 Sodium Chloride 0.9% 50 Ml Ivpb IV PRN PRN FLUSH Sodium Polystyrene Sulfonate 30 gm 03/24/21 08:30 Sodium Polystyrene 15 Gm/60 Ml Oral Liqd PO 03/24/21 11:30 ONCE@0830 BLANCA Trimethoprim/Sulfamethoxazole 1 each 03/20/21 16:00 03/23/21 21:05 Sulfamethoxazole/Trimethoprim 800/160mg Ds Tab PO 1 each Q12HR BLANCA Administration Protocol Zinc Sulfate 220 mg 03/10/21 14:00 03/23/21 21:03 Zinc Sulfate 220 Mg Cap PO 220 mg BID BLANCA Administration Nutrition/Malnutrition Assess - Dietary Evaluation Nutrition/Malnutrition Findings: Nutrition Notes Start: 03/09/21 08:49 Freq: Status: Active Protocol: Document 03/20/21 16:21 BRYANNA (Rec: 03/20/21 16:53 BRYANNA [id number]) Nutrition Notes Current Diagnosis Diabetes,Sepsis,Hypertension, Respiratory Failure Other Pertinent Diagnosis COVID-19, Bilateral Pneumonia. Current Diet TF-Glucerna 1.2 Tyson at 40 ml/ hr (since D 03/17). Labs/Tests 03/20: Na 146, K 5.5, Cl 111.1 , BUN 34, Crea 0.7, Glu 145, Mg 2.5. Pertinent Medications 03/20: Vit C, Insulin, ZnSO4, Propofol @ 35.07 ml/hr ( 926Kcal), others nutritionally unremarkable. Height 5 ft 11 in Weight 120 kg [place] Body Weight (kg) 78.18 BMI 36.8 Weight change and time frame 3.0 Kg body weight gain in 3 days reported. Weight Status Obese Subjective/Other Information RD consult for routine F/U on TF tolerance. Pt remains on mechanical ventilation, according to [facility] notes. TF continues as prescribed. Pt continues with low-grade fever. Percent of energy/protein needs met: Prescribed Glucerna 1.2 [place] @ 40 ml/hr provides for energy/ protein needs (1,152 Kcal/58 g ) during LOS, additionally, Propofol contributes with 926 Kcal, 87% Kcal; 46% AA. #1 Nutrition Diagnosis Inadequate oral intake Diagnosis Progress(for reassessment Continues documentation) Nutrition Intervention Nutrition Support: Continue Glucerna 1.2 @ 40 ml/ hr. Flush: 200ml water Q 4 hr ( until hypernatremia resolved). Kcal 1,152 Protein (gm) 58 Carbohydrates (gm) 110 Fat (gm) 58 Fluid (mL) 773 Fiber (gm) 15 % RDI: 48% Kcal; 46% AA. Goal #1 Provide at least 75% of energy /protein needs through Enteral Feeding during LOS. Follow-Up By: 03/27/21 Additional Comments Continue monitoring TF tolerance and BM.
[2021-03-20] MEDS: ENOXAPARIN 120 MG/0.8 ML INJ SUB-Q SCH (21:24)
[2021-03-21] MEDS: INSULIN LISPRO 100 UNIT/ML SUB-Q SCH ×4 (01:01→18:49)
[2021-03-21] MEDS: fentaNYL DRIP Premix 2,000 MCG/100 ML BAG IV SCH ×5 (02:50→20:38)
[2021-03-21] MEDS: hydrALAZINE 25 MG TAB PO SCH ×4 (05:11→22:35)
[2021-03-21] MEDS: methylPREDNISolone Sod Succinate 40 MG/1 ML INJ IV SCH ×3 (05:12→22:32)
[2021-03-21 05:30] LABS: Blood Urea Nitrogen 30 mg/dL (9-20); Calcium 8.4 mg/dL (8.4-10.2); Hemolysis Index 8
[2021-03-21 05:41] LABS: BUN/Creatinine Ratio 43
[2021-03-21] MEDS: hydrALAZINE 20 MG/1 ML INJ IV PRN ×2 (08:11→16:24)
[2021-03-21] MEDS: MIDAZOLAM 2 MG/2 ML INJ IV PRN ×4 (08:12→16:24)
[2021-03-21] MEDS: IPRATROPIUM/ALBUTEROL SULFATE 3 ML AMPUL.NEB IH SCH (09:18)
[2021-03-21] MEDS: ARFORMOTEROL 15 MCG/2 ML NEBU IH SCH ×2 (09:18→20:00)
[2021-03-21] MEDS: BUDESONIDE 0.25 MG/2 ML NEBU IH SCH ×2 (09:18→20:00)
[2021-03-21 09:43] LABS: ABG Base Excess 5.3 mmol/L (-2.0-3.0); ABG HCO3 30.6 mmol/L (20.0-26.0); ABG Methemoglobin 0.7 % (0.0-1.5); ABG Oxygen Saturation 93.6 % (95.0-99.0); ABG PCO2 47.4 mm Hg; ABG PH 7.428 pH Units (7.350-7.450); ABG PO2 60.7 mm Hg (80.0-90.0)
[2021-03-21] MEDS: ENOXAPARIN 120 MG/0.8 ML INJ SUB-Q SCH ×2 (10:03→22:32)
[2021-03-21] MEDS: ASCORBIC ACID 500 MG TAB PO SCH ×2 (10:03→22:33)
[2021-03-21] MEDS: SENNOSIDES/DOCUSATE SODIUM 8.6/50 MG TAB FEEDTUBE SCH ×2 (10:03→22:32)
[2021-03-21] MEDS: SULFAMETHOXAZOLE/TRIMETHOPRIM 800/160MG DS TAB PO SCH ×2 (10:03→22:45)
[2021-03-21] MEDS: FAMOTIDINE 20 MG TAB FEEDTUBE SCH ×2 (10:03→22:33)
[2021-03-21] MEDS: ZINC SULFATE 220 MG CAP PO SCH ×2 (10:03→22:32)
[2021-03-21] MEDS: QUEtiapine 100 MG TAB PO SCH ×2 (10:04→22:32)
[2021-03-21] MEDS: INSULIN GLARGINE 100 UNITS/ML SUB-Q SCH ×2 (10:48→22:37)
--- NOTE | 2021-03-21 13:11 | Progress Note ---
Assessment and Plan Acute hypoxemic respiratory failure, on continuous noninvasive ventilation COVID-19 infection Bilateral pneumonia History of diabetes Obesity Hypertension Leukocytosis Possible venous thromboembolic phenomena with significantly elevated D-dimers DM II Elevated serum inflammatory markers to include CRP levels, ferritin and LDH - ETT day # 12; he may be headed for a tracheostomy - reduced set rate to 20/min - RN asdked to reduce Propofol to 30 myles's/kg/min (from 50 myles's) and wean further as tolerated - Add Librium 50mg po q8h X 5 days - increased Seroquel further to 300 mg po bid - will change Propofol to Versed if QT increases - continue care as below otherwise; - continue Daily SAT and SBT assessment as tolerated - continue to wean supplemental oxygen for target O2 sat's > 90% acutely - VAP bundle addressed - continue lung protective strategies - continue bronchodilators with pulmonary hygiene per RT - wean per pulmonary driven protocols otherwise - continue accuchecks with glycemic control per SSI (While critically ill target blood glucose of 140-180 mg/dL; avoid hypoglycemia) - sedation prn for target RASS 0 to -1 - avoid nephrotoxins, renally dose all medications - avoid benzodiazepine's, reduce the possibility of delirium - AB's per ID rec's - prn analgesia per pain score - Maintenance of sleep-wake cycle, avoid delirium - G.I. & VTE prophylaxis - PT/OT/ROM exercises - mobility protocols for pressure ulcer prophylaxis - Monitor hemodynamics closely - continue other care per attending / other consultants - discharge planning ongoing concurrently COVID SPECIFIC INTERVENTIONS - Remdesivir as per ID/Pulmonary developed protocols (received) - continue systemic steroids for severe COVID-19 infection empirically (Decadron) - follow repeat COVID tests results - zinc and vitamin C supplementation - Monitor inflammatory markers per facility protocol - ferritin, Ddimer, CRP - therapeutic anticoagulation per system Protocol based on d-dimer and clinical considerations (treatment dose) - Continue contact and airborne isolation .... Re-evaluate in am & prn CONDITION: CRITICAL PROGNOSIS: GUARDED CODE STATUS: FULL CODE The high probability of a clinically significant, sudden or life-threatening deterioration of the [respiratory, cardiovascular & hematologic] system(s) required my full and direct attention, intervention and personal management. The aggregate critical care time was [33] minutes without overlap. Time includes spent on; [x] Data Review and interpretation [x] Patient assessment and monitoring of vital signs [x] Documentation [x] Medication orders and management Subjective Date of service: 03/21/21 Principal diagnosis: COVID-19 infection; DM II; Bilateral pneumonia; Obesity; HTN Interval history: Patient is seen today for: Acute hypoxemic respiratory failure; COVID-19 infection; DM II; Bilateral pneumonia; Obesity; HTN Seen and examined at bedside; 24hour events reviewed; nursing and respiratory ca re staff consulted; no adverse overnight events reported to me; resting in bed; remains on MVS; sedated on Max Fentanyl & Propofol; no emesis or overt aspiration; BP better controlled when sedated; afebrile Objective Vital Signs - 12hr 03/21/21 03/21/21 03/21/21 01:15 01:30 01:45 Temperature Pulse Rate 102 H 103 H 102 H Pulse Rate [ Bilateral Throughout] Pulse Rate [ From Monitor] Respiratory 25 H 23 22 Rate Respiratory Rate [Bilateral Throughout] Blood Pressure 115/49 115/50 121/52 O2 Sat by Pulse 88 90 90 Oximetry 03/21/21 03/21/21 03/21/21 02:01 02:15 02:30 Temperature Pulse Rate 123 H 127 H 126 H Pulse Rate [ Bilateral Throughout] Pulse Rate [ From Monitor] Respiratory 22 23 22 Rate Respiratory Rate [Bilateral Throughout] Blood Pressure 165/92 165/92 165/78 O2 Sat by Pulse 92 92 88 Oximetry 03/21/21 03/21/21 03/21/21 02:45 03:00 03:15 Temperature Pulse Rate 123 H 118 H 116 H Pulse Rate [ Bilateral Throughout] Pulse Rate [ From Monitor] Respiratory 21 17 15 Rate Respiratory Rate [Bilateral Throughout] Blood Pressure 155/74 155/74 155/74 O2 Sat by Pulse 86 85 91 Oximetry 03/21/21 03/21/21 03/21/21 03:31 03:43 03:45 Temperature 100 F H Pulse Rate 117 H 118 H 117 H Pulse Rate [ Bilateral Throughout] Pulse Rate [ From Monitor] Respiratory 15 17 Rate Respiratory Rate [Bilateral Throughout] Blood Pressure 127/73 122/83 122/83 O2 Sat by Pulse 89 94 98 Oximetry 03/21/21 03/21/21 03/21/21 04:00 04:15 04:30 Temperature Pulse Rate 122 H 120 H 113 H Pulse Rate [ Bilateral Throughout] Pulse Rate [ 107 H From Monitor] Respiratory 21 18 12 Rate Respiratory Rate [Bilateral Throughout] Blood Pressure 139/79 138/81 119/76 O2 Sat by Pulse 90 89 91 Oximetry 03/21/21 03/21/21 03/21/21 04:45 05:00 05:11 Temperature Pulse Rate 108 H 107 H 118 H Pulse Rate [ Bilateral Throughout] Pulse Rate [ From Monitor] Respiratory 19 23 Rate Respiratory Rate [Bilateral Throughout] Blood Pressure 119/76 118/64 122/83 O2 Sat by Pulse 91 87 Oximetry 03/21/21 03/21/21 03/21/21 05:15 05:30 05:45 Temperature Pulse Rate 106 H 106 H 108 H Pulse Rate [ Bilateral Throughout] Pulse Rate [ From Monitor] Respiratory 45 H 25 H 19 Rate Respiratory Rate [Bilateral Throughout] Blood Pressure 117/66 116/72 107/63 O2 Sat by Pulse 90 93 89 Oximetry 03/21/21 03/21/21 03/21/21 06:00 06:15 06:30 Temperature Pulse Rate 104 H 105 H 102 H Pulse Rate [ Bilateral Throughout] Pulse Rate [ From Monitor] Respiratory 21 16 36 H Rate Respiratory Rate [Bilateral Throughout] Blood Pressure 116/68 119/63 116/63 O2 Sat by Pulse 89 87 87 Oximetry 03/21/21 03/21/21 03/21/21 06:45 07:00 07:15 Temperature Pulse Rate 101 H 100 H 102 H Pulse Rate [ Bilateral Throughout] Pulse Rate [ From Monitor] Respiratory 33 H 25 H 32 H Rate Respiratory Rate [Bilateral Throughout] Blood Pressure 124/70 128/67 120/58 O2 Sat by Pulse 90 88 87 Oximetry 03/21/21 03/21/21 03/21/21 07:31 07:45 08:00 Temperature Pulse Rate 117 H 116 H 117 H Pulse Rate [ Bilateral Throughout] Pulse Rate [ 117 H From Monitor] Respiratory 31 H 31 H 26 H Rate Respiratory Rate [Bilateral Throughout] Blood Pressure 192/99 192/99 193/103 O2 Sat by Pulse 93 92 87 Oximetry 03/21/21 03/21/21 03/21/21 08:11 08:15 08:30 Temperature Pulse Rate 120 H 115 H 113 H Pulse Rate [ Bilateral Throughout] Pulse Rate [ From Monitor] Respiratory 41 H 30 H Rate Respiratory Rate [Bilateral Throughout] Blood Pressure 193/103 193/103 141/78 O2 Sat by Pulse 90 88 Oximetry 03/21/21 03/21/21 03/21/21 08:45 09:01 09:08 Temperature Pulse Rate 122 H 125 H 125 H Pulse Rate [ Bilateral Throughout] Pulse Rate [ From Monitor] Respiratory 37 H 34 H Rate Respiratory Rate [Bilateral Throughout] Blood Pressure 141/78 176/90 176/90 O2 Sat by Pulse 91 87 91 Oximetry 03/21/21 03/21/21 03/21/21 09:15 09:19 09:31 Temperature Pulse Rate 126 H 125 H Pulse Rate [ 124 H Bilateral Throughout] Pulse Rate [ From Monitor] Respiratory 36 H 35 H Rate Respiratory 37 H Rate [Bilateral Throughout] Blood Pressure 176/90 157/91 O2 Sat by Pulse 91 89 Oximetry 03/21/21 03/21/21 03/21/21 09:45 10:00 10:15 Temperature Pulse Rate 125 H 119 H 120 H Pulse Rate [ Bilateral Throughout] Pulse Rate [ From Monitor] Respiratory 33 H 31 H 30 H Rate Respiratory Rate [Bilateral Throughout] Blood Pressure 157/91 153/77 165/100 O2 Sat by Pulse 90 86 89 Oximetry 03/21/21 03/21/21 03/21/21 10:30 10:45 11:00 Temperature Pulse Rate 122 H 123 H 124 H Pulse Rate [ Bilateral Throughout] Pulse Rate [ From Monitor] Respiratory 25 H 26 H 27 H Rate Respiratory Rate [Bilateral Throughout] Blood Pressure 147/83 133/71 141/64 O2 Sat by Pulse 92 84 87 Oximetry 03/21/21 03/21/21 03/21/21 11:15 11:31 11:45 Temperature Pulse Rate 118 H 125 H 134 H Pulse Rate [ Bilateral Throughout] Pulse Rate [ From Monitor] Respiratory 25 H 31 H 37 H Rate Respiratory Rate [Bilateral Throughout] Blood Pressure 133/66 189/107 189/107 O2 Sat by Pulse 85 92 92 Oximetry 03/21/21 12:00 Temperature Pulse Rate 127 H Pulse Rate [ Bilateral Throughout] Pulse Rate [ 127 H From Monitor] Respiratory 24 Rate Respiratory Rate [Bilateral Throughout] Blood Pressure 136/70 O2 Sat by Pulse 86 Oximetry Constitutional: no acute distress (sedated), other (elderly obese male with mildly increased respiratory effort at rest on MVS) Eyes: non-icteric ENT: oropharynx moist, other (ETT 24 cm CHAITANYA) Neck: supple, no lymphadenopathy, no JVD, other (large circumference) Effort: normal Ascultation: Bilateral: diminished breath sounds, rhonchi Percussion: Bilateral: not dull Cardiovascular: regular rate and rhythm, other (tachycardia, S1,S2) Gastrointestinal: normoactive bowel sounds Integumentary: normal Extremities: no cyanosis, pulses normal, no ischemia or petechiae, edema Neurologic: pupils equal and round, unable to assess, other (sedated) Psychiatric: other (unable to assess re: AMS) CBC and BMP: 03/20/21 04:45 03/21/21 04:44 ABG, PT/INR, D-dimer: ABG ABG pH 7.428 pH Units (7.350-7.450) 03/21/21 09:18 POC ABG pCO2 71.9 mmHg (32.0-48.0) H 03/12/21 21:54 ABG pCO2 47.4 mm Hg 03/21/21 09:18 POC ABG pO2 53.6 mmHg (83-108) L 03/12/21 21:54 ABG pO2 60.7 mm Hg (80.0-90.0) L 03/21/21 09:18 POC ABG HCO3 30.0 03/12/21 21:54 ABG O2 Saturation 93.6 % (95.0-99.0) L 03/21/21 09:18 PT/INR, D-dimer PT 16.1 Sec. (12.2-14.9) H 03/08/21 20:24 INR 1.17 (0.87-1.13) H 03/08/21 20:24 D-Dimer 1359.12 ng/mlDDU (0-234) H 03/17/21 04:40 Abnormal lab findings: Abnormal Labs 03/08/21 03/08/21 03/08/21 20:24 20:24 20:24 WBC 22.6 H RBC 5.44 H Hgb 15.7 H Hct 49.2 H MCV MCHC RDW Lymph % (Auto) [place] % (Auto) [place] # (Auto) Seg Neutrophils % Seg Neuts % (Manual) 83.0 H Lymphocytes % (Manual) 9.0 L Monocytes % (Manual) 8.0 H Nucleated RBC % Seg Neutrophils # Seg Neutrophils # Man 18.8 H Lymphocytes # (Manual) Monocytes # (Manual) 1.8 H PT 16.1 H INR 1.17 H D-Dimer > 78196 H ABG pH POC ABG pCO2 POC ABG pO2 ABG pO2 ABG HCO3 ABG O2 Saturation ABG Base Excess ABG Hemoglobin ABG Oxyhemoglobin ABG Sodium ABG Potassium ABG Glucose Oxyhemoglobin Sodium 136 L Potassium Chloride 93.9 L Carbon Dioxide BUN 29 H Creatinine Glucose 208 H POC Glucose Lactic Acid Phosphorus Magnesium Ferritin Lactate Dehydrogenase 624 H C-Reactive Protein 18.00 H NT-Pro-B Natriuret Pep 1053 H Total Protein Albumin Triglycerides Arterial Blood Glucose Ur Specific [place] Coronavirus (PCR) 03/08/21 03/08/21 03/09/21 20:24 20:24 04:10 WBC RBC Hgb Hct MCV MCHC RDW Lymph % (Auto) [place] % (Auto) [place] # (Auto) Seg Neutrophils % Seg Neuts % (Manual) Lymphocytes % (Manual) Monocytes % (Manual) Nucleated RBC % Seg Neutrophils # Seg Neutrophils # Man Lymphocytes # (Manual) Monocytes # (Manual) PT INR D-Dimer ABG pH POC ABG pCO2 POC ABG pO2 ABG pO2 ABG HCO3 ABG O2 Saturation ABG Base Excess ABG Hemoglobin ABG Oxyhemoglobin ABG Sodium ABG Potassium ABG Glucose Oxyhemoglobin Sodium Potassium Chloride Carbon Dioxide BUN Creatinine Glucose POC Glucose Lactic Acid 2.10 H* Phosphorus Magnesium Ferritin 877.5 H Lactate Dehydrogenase C-Reactive Protein NT-Pro-B Natriuret Pep Total Protein Albumin Triglycerides Arterial Blood Glucose Ur Specific [place] 1.041 H Coronavirus (PCR) 03/09/21 03/09/21 03/09/21 07:46 08:00 13:01 WBC RBC Hgb Hct MCV MCHC RDW Lymph % (Auto) [place] % (Auto) [place] # (Auto) Seg Neutrophils % Seg Neuts % (Manual) Lymphocytes % (Manual) Monocytes % (Manual) Nucleated RBC % Seg Neutrophils # Seg Neutrophils # Man Lymphocytes # (Manual) Monocytes # (Manual) PT INR D-Dimer ABG pH POC ABG pCO2 POC ABG pO2 ABG pO2 ABG HCO3 ABG O2 Saturation ABG Base Excess ABG Hemoglobin ABG Oxyhemoglobin ABG Sodium ABG Potassium ABG Glucose Oxyhemoglobin Sodium Potassium Chloride Carbon Dioxide BUN Creatinine Glucose POC Glucose 191 H 182 H Lactic Acid Phosphorus Magnesium Ferritin Lactate Dehydrogenase C-Reactive Protein NT-Pro-B Natriuret Pep Total Protein Albumin Triglycerides Arterial Blood Glucose Ur Specific [place] Coronavirus (PCR) Positive A 03/09/21 03/09/21 03/09/21 15:19 17:48 18:10 WBC RBC Hgb Hct MCV MCHC RDW Lymph % (Auto) [place] % (Auto) [place] # (Auto) Seg Neutrophils % Seg Neuts % (Manual) Lymphocytes % (Manual) Monocytes % (Manual) Nucleated RBC % Seg Neutrophils # Seg Neutrophils # Man Lymphocytes # (Manual) Monocytes # (Manual) PT INR D-Dimer ABG pH POC ABG pCO2 POC ABG pO2 ABG pO2 47.3 L ABG HCO3 26.3 H ABG O2 Saturation 83.7 L ABG Base Excess ABG Hemoglobin ABG Oxyhemoglobin ABG Sodium ABG Potassium ABG Glucose Oxyhemoglobin 82.1 L Sodium Potassium Chloride Carbon Dioxide BUN 29 H Creatinine Glucose 214 H POC Glucose 194 H Lactic Acid Phosphorus Magnesium Ferritin Lactate Dehydrogenase C-Reactive Protein NT-Pro-B Natriuret Pep Total Protein Albumin 3.4 L Triglycerides Arterial Blood Glucose Ur Specific [place] Coronavirus (PCR) 03/09/21 03/10/21 03/10/21 20:40 04:29 04:29 WBC 20.6 H RBC 5.07 H Hgb Hct 46.2 H MCV MCHC RDW Lymph % (Auto) [place] % (Auto) [place] # (Auto) Seg Neutrophils % Seg Neuts % (Manual) 94.0 H Lymphocytes % (Manual) 1.0 L Monocytes % (Manual) Nucleated RBC % 3.0 H Seg Neutrophils # Seg Neutrophils # Man 19.4 H Lymphocytes # (Manual) 0.2 L Monocytes # (Manual) 1.0 H PT INR D-Dimer ABG pH POC ABG pCO2 POC ABG pO2 ABG pO2 ABG HCO3 ABG O2 Saturation ABG Base Excess ABG Hemoglobin ABG Oxyhemoglobin ABG Sodium ABG Potassium ABG Glucose Oxyhemoglobin Sodium Potassium Chloride Carbon Dioxide BUN 29 H Creatinine Glucose 188 H POC Glucose 176 H Lactic Acid Phosphorus Magnesium Ferritin Lactate Dehydrogenase C-Reactive Protein NT-Pro-B Natriuret Pep Total Protein Albumin 3.3 L Triglycerides Arterial Blood Glucose Ur Specific [place] Coronavirus (PCR) 03/10/21 03/10/21 03/10/21 05:22 10:27 15:25 WBC RBC Hgb Hct MCV MCHC RDW Lymph % (Auto) [place] % (Auto) [place] # (Auto) Seg Neutrophils % Seg Neuts % (Manual) Lymphocytes % (Manual) Monocytes % (Manual) Nucleated RBC % Seg Neutrophils # Seg Neutrophils # Man Lymphocytes # (Manual) Monocytes # (Manual) PT INR D-Dimer ABG pH 7.488 H 7.488 H POC ABG pCO2 POC ABG pO2 ABG pO2 47.7 L 50.5 L ABG HCO3 ABG O2 Saturation 86.2 L 87.9 L ABG Base Excess ABG Hemoglobin ABG Oxyhemoglobin ABG Sodium ABG Potassium ABG Glucose Oxyhemoglobin 84.6 L 86.2 L Sodium Potassium Chloride Carbon Dioxide BUN Creatinine Glucose POC Glucose 155 H Lactic Acid Phosphorus Magnesium Ferritin Lactate Dehydrogenase C-Reactive Protein NT-Pro-B Natriuret Pep Total Protein Albumin Triglycerides Arterial Blood Glucose Ur Specific [place] Coronavirus (PCR) 03/10/21 03/10/21 03/11/21 18:10 18:55 00:07 WBC RBC Hgb Hct MCV MCHC RDW Lymph % (Auto) [place] % (Auto) [place] # (Auto) Seg Neutrophils % Seg Neuts % (Manual) Lymphocytes % (Manual) Monocytes % (Manual) Nucleated RBC % Seg Neutrophils # Seg Neutrophils # Man Lymphocytes # (Manual) Monocytes # (Manual) PT INR D-Dimer ABG pH 7.343 L POC ABG pCO2 POC ABG pO2 ABG pO2 60.4 L ABG HCO3 27.9 H ABG O2 Saturation 88.7 L ABG Base Excess ABG Hemoglobin ABG Oxyhemoglobin ABG Sodium ABG Potassium ABG Glucose Oxyhemoglobin 86.9 L Sodium Potassium Chloride Carbon Dioxide BUN Creatinine Glucose POC Glucose 187 H 139 H Lactic Acid Phosphorus Magnesium Ferritin Lactate Dehydrogenase C-Reactive Protein NT-Pro-B Natriuret Pep Total Protein Albumin Triglycerides Arterial Blood Glucose Ur Specific [place] Coronavirus (PCR) 03/11/21 03/11/21 03/11/21 02:09 04:28 08:06 WBC RBC Hgb Hct MCV MCHC RDW Lymph % (Auto) [place] % (Auto) [place] # (Auto) Seg Neutrophils % Seg Neuts % (Manual) Lymphocytes % (Manual) Monocytes % (Manual) Nucleated RBC % Seg Neutrophils # Seg Neutrophils # Man Lymphocytes # (Manual) Monocytes # (Manual) PT INR D-Dimer ABG pH 7.277 L POC ABG pCO2 55.9 H POC ABG pO2 54.4 L ABG pO2 ABG HCO3 ABG O2 Saturation ABG Base Excess ABG Hemoglobin ABG Oxyhemoglobin 83.0 L ABG Sodium ABG Potassium 4.8 H ABG Glucose 180 H Oxyhemoglobin Sodium Potassium Chloride Carbon Dioxide BUN 38 H Creatinine Glucose 249 H POC Glucose 278 H Lactic Acid Phosphorus Magnesium Ferritin Lactate Dehydrogenase C-Reactive Protein NT-Pro-B Natriuret Pep Total Protein Albumin 3.2 L Triglycerides Arterial Blood Glucose 180 H Ur Specific [place] Coronavirus (PCR) 03/11/21 03/11/21 03/11/21 11:29 15:06 15:48 WBC RBC Hgb Hct MCV MCHC RDW Lymph % (Auto) [place] % (Auto) [place] # (Auto) Seg Neutrophils % Seg Neuts % (Manual) Lymphocytes % (Manual) Monocytes % (Manual) Nucleated RBC % Seg Neutrophils # Seg Neutrophils # Man Lymphocytes # (Manual) Monocytes # (Manual) PT INR D-Dimer ABG pH 7.260 L POC ABG pCO2 POC ABG pO2 ABG pO2 53.5 L ABG HCO3 29.5 H ABG O2 Saturation 84.0 L ABG Base Excess ABG Hemoglobin ABG Oxyhemoglobin ABG Sodium ABG Potassium ABG Glucose Oxyhemoglobin 82.3 L Sodium Potassium Chloride Carbon Dioxide BUN Creatinine Glucose POC Glucose 288 H 295 H Lactic Acid Phosphorus Magnesium Ferritin Lactate Dehydrogenase C-Reactive Protein NT-Pro-B Natriuret Pep Total Protein Albumin Triglycerides Arterial Blood Glucose Ur Specific [place] Coronavirus (PCR) 03/12/21 03/12/21 03/12/21 00:01 05:24 08:03 WBC RBC Hgb Hct MCV MCHC RDW Lymph % (Auto) [place] % (Auto) [place] # (Auto) Seg Neutrophils % Seg Neuts % (Manual) Lymphocytes % (Manual) Monocytes % (Manual) Nucleated RBC % Seg Neutrophils # Seg Neutrophils # Man Lymphocytes # (Manual) Monocytes # (Manual) PT INR D-Dimer ABG pH POC ABG pCO2 POC ABG pO2 ABG pO2 ABG HCO3 ABG O2 Saturation ABG Base Excess ABG Hemoglobin ABG Oxyhemoglobin ABG Sodium ABG Potassium ABG Glucose Oxyhemoglobin Sodium 135 L Potassium Chloride Carbon Dioxide BUN 48 H Creatinine Glucose 358 H POC Glucose 304 H 310 H Lactic Acid Phosphorus Magnesium Ferritin Lactate Dehydrogenase C-Reactive Protein NT-Pro-B Natriuret Pep Total Protein 6.0 L Albumin 2.9 L Triglycerides Arterial Blood Glucose Ur Specific [place] Coronavirus (PCR) 01/03/12/21 03/12/21 08:03 10:43 11:31 WBC 14.6 H RBC Hgb Hct MCV MCHC RDW Lymph % (Auto) [place] % (Auto) [place] # (Auto) Seg Neutrophils % Seg Neuts % (Manual) Lymphocytes % (Manual) Monocytes % (Manual) Nucleated RBC % Seg Neutrophils # Seg Neutrophils # Man Lymphocytes # (Manual) Monocytes # (Manual) PT INR D-Dimer ABG pH 7.248 L POC ABG pCO2 POC ABG pO2 ABG pO2 73.7 L ABG HCO3 32.0 H ABG O2 Saturation 93.9 L ABG Base Excess ABG Hemoglobin ABG Oxyhemoglobin ABG Sodium ABG Potassium ABG Glucose Oxyhemoglobin 92.1 L Sodium Potassium Chloride Carbon Dioxide BUN Creatinine Glucose POC Glucose 359 H Lactic Acid Phosphorus Magnesium Ferritin Lactate Dehydrogenase C-Reactive Protein NT-Pro-B Natriuret Pep Total Protein Albumin Triglycerides Arterial Blood Glucose Ur Specific [place] Coronavirus (PCR) 03/12/21 03/12/21 03/13/21 17:20 21:54 00:02 WBC RBC Hgb Hct MCV MCHC RDW Lymph % (Auto) [place] % (Auto) [place] # (Auto) Seg Neutrophils % Seg Neuts % (Manual) Lymphocytes % (Manual) Monocytes % (Manual) Nucleated RBC % Seg Neutrophils # Seg Neutrophils # Man Lymphocytes # (Manual) Monocytes # (Manual) PT INR D-Dimer ABG pH 7.238 L POC ABG pCO2 71.9 H POC ABG pO2 53.6 L ABG pO2 ABG HCO3 ABG O2 Saturation ABG Base Excess ABG Hemoglobin ABG Oxyhemoglobin 84.8 L ABG Sodium 134.2 L ABG Potassium 4.9 H ABG Glucose 306 H Oxyhemoglobin Sodium Potassium Chloride Carbon Dioxide BUN Creatinine Glucose POC Glucose 374 H 308 H Lactic Acid Phosphorus Magnesium Ferritin Lactate Dehydrogenase C-Reactive Protein NT-Pro-B Natriuret Pep Total Protein Albumin Triglycerides Arterial Blood Glucose 306 H Ur Specific [place] Coronavirus (PCR) 03/13/21 03/13/21 03/13/21 05:22 05:44 05:44 WBC 13.9 H RBC Hgb Hct MCV MCHC RDW Lymph % (Auto) [place] % (Auto) [place] # (Auto) Seg Neutrophils % Seg Neuts % (Manual) Lymphocytes % (Manual) Monocytes % (Manual) Nucleated RBC % Seg Neutrophils # Seg Neutrophils # Man Lymphocytes # (Manual) Monocytes # (Manual) PT INR D-Dimer 3567.97 H ABG pH POC ABG pCO2 POC ABG pO2 ABG pO2 ABG HCO3 ABG O2 Saturation ABG Base Excess ABG Hemoglobin ABG Oxyhemoglobin ABG Sodium ABG Potassium ABG Glucose Oxyhemoglobin Sodium Potassium Chloride Carbon Dioxide BUN Creatinine Glucose POC Glucose 316 H Lactic Acid Phosphorus Magnesium Ferritin Lactate Dehydrogenase C-Reactive Protein NT-Pro-B Natriuret Pep Total Protein Albumin Triglycerides Arterial Blood Glucose Ur Specific [place] Coronavirus (PCR) 03/13/21 03/13/21 03/13/21 05:44 05:44 11:15 WBC RBC Hgb Hct MCV MCHC RDW Lymph % (Auto) [place] % (Auto) [place] # (Auto) Seg Neutrophils % Seg Neuts % (Manual) Lymphocytes % (Manual) Monocytes % (Manual) Nucleated RBC % Seg Neutrophils # Seg Neutrophils # Man Lymphocytes # (Manual) Monocytes # (Manual) PT INR D-Dimer ABG pH 7.310 L POC ABG pCO2 POC ABG pO2 ABG pO2 52.3 L ABG HCO3 34.1 H ABG O2 Saturation 86.8 L ABG Base Excess 5.5 H ABG Hemoglobin 13.8 L ABG Oxyhemoglobin ABG Sodium ABG Potassium ABG Glucose Oxyhemoglobin 85.1 L Sodium Potassium Chloride Carbon Dioxide BUN Creatinine Glucose POC Glucose Lactic Acid Phosphorus Magnesium Ferritin 858.7 H Lactate Dehydrogenase 348 H C-Reactive Protein 2.80 H NT-Pro-B Natriuret Pep Total Protein Albumin Triglycerides Arterial Blood Glucose Ur Specific [place] Coronavirus (PCR) 03/13/21 03/13/21 03/13/21 11:21 15:47 19:23 WBC RBC Hgb Hct MCV MCHC RDW Lymph % (Auto) [place] % (Auto) [place] # (Auto) Seg Neutrophils % Seg Neuts % (Manual) Lymphocytes % (Manual) Monocytes % (Manual) Nucleated RBC % Seg Neutrophils # Seg Neutrophils # Man Lymphocytes # (Manual) Monocytes # (Manual) PT INR D-Dimer ABG pH POC ABG pCO2 POC ABG pO2 ABG pO2 ABG HCO3 ABG O2 Saturation ABG Base Excess ABG Hemoglobin ABG Oxyhemoglobin ABG Sodium ABG Potassium ABG Glucose Oxyhemoglobin Sodium 136 L Potassium 5.9 H Chloride Carbon Dioxide BUN 50 H Creatinine Glucose 397 H POC Glucose 322 H 317 H Lactic Acid Phosphorus Magnesium Ferritin Lactate Dehydrogenase C-Reactive Protein NT-Pro-B Natriuret Pep Total Protein Albumin Triglycerides Arterial Blood Glucose Ur Specific [place] Coronavirus (PCR) 03/13/21 03/14/21 03/14/21 23:46 05:32 05:50 WBC 11.6 H RBC Hgb Hct MCV MCHC RDW Lymph % (Auto) [place] % (Auto) [place] # (Auto) Seg Neutrophils % Seg Neuts % (Manual) Lymphocytes % (Manual) Monocytes % (Manual) Nucleated RBC % Seg Neutrophils # Seg Neutrophils # Man Lymphocytes # (Manual) Monocytes # (Manual) PT INR D-Dimer ABG pH POC ABG pCO2 POC ABG pO2 ABG pO2 ABG HCO3 ABG O2 Saturation ABG Base Excess ABG Hemoglobin ABG Oxyhemoglobin ABG Sodium ABG Potassium ABG Glucose Oxyhemoglobin Sodium Potassium Chloride Carbon Dioxide BUN Creatinine Glucose POC Glucose 332 H 316 H Lactic Acid Phosphorus Magnesium Ferritin Lactate Dehydrogenase C-Reactive Protein NT-Pro-B Natriuret Pep Total Protein Albumin Triglycerides Arterial Blood Glucose Ur Specific [place] Coronavirus (PCR) 03/14/21 03/14/21 03/14/21 05:50 11:33 16:53 WBC RBC Hgb Hct MCV MCHC RDW Lymph % (Auto) [place] % (Auto) [place] # (Auto) Seg Neutrophils % Seg Neuts % (Manual) Lymphocytes % (Manual) Monocytes % (Manual) Nucleated RBC % Seg Neutrophils # Seg Neutrophils # Man Lymphocytes # (Manual) Monocytes # (Manual) PT INR D-Dimer ABG pH POC ABG pCO2 POC ABG pO2 ABG pO2 ABG HCO3 ABG O2 Saturation ABG Base Excess ABG Hemoglobin ABG Oxyhemoglobin ABG Sodium ABG Potassium ABG Glucose Oxyhemoglobin Sodium Potassium 5.9 H Chloride Carbon Dioxide 31 H BUN 48 H Creatinine Glucose 380 H POC Glucose 315 H 235 H Lactic Acid Phosphorus Magnesium 3.40 H Ferritin Lactate Dehydrogenase C-Reactive Protein NT-Pro-B Natriuret Pep Total Protein Albumin Triglycerides Arterial Blood Glucose Ur Specific [place] Coronavirus (PCR) 03/14/21 03/14/21 03/15/21 18:34 23:27 01:22 WBC RBC Hgb Hct 46.3 H MCV MCHC RDW Lymph % (Auto) [place] % (Auto) [place] # (Auto) Seg Neutrophils % Seg Neuts % (Manual) Lymphocytes % (Manual) Monocytes % (Manual) Nucleated RBC % Seg Neutrophils # Seg Neutrophils # Man Lymphocytes # (Manual) Monocytes # (Manual) PT INR D-Dimer ABG pH POC ABG pCO2 POC ABG pO2 ABG pO2 ABG HCO3 ABG O2 Saturation ABG Base Excess ABG Hemoglobin ABG Oxyhemoglobin ABG Sodium ABG Potassium ABG Glucose Oxyhemoglobin Sodium 146 H Potassium Chloride Carbon Dioxide 34 H BUN 49 H Creatinine Glucose 285 H POC Glucose 203 H Lactic Acid Phosphorus Magnesium Ferritin Lactate Dehydrogenase C-Reactive Protein NT-Pro-B Natriuret Pep Total Protein Albumin Triglycerides Arterial Blood Glucose Ur Specific [place] Coronavirus (PCR) 03/15/21 03/15/21 03/15/21 04:00 06:06 06:06 WBC RBC Hgb Hct MCV MCHC RDW Lymph % (Auto) [place] % (Auto) [place] # (Auto) Seg Neutrophils % Seg Neuts % (Manual) Lymphocytes % (Manual) Monocytes % (Manual) Nucleated RBC % Seg Neutrophils # Seg Neutrophils # Man Lymphocytes # (Manual) Monocytes # (Manual) PT INR D-Dimer 1781.79 H ABG pH POC ABG pCO2 POC ABG pO2 ABG pO2 ABG HCO3 ABG O2 Saturation ABG Base Excess ABG Hemoglobin ABG Oxyhemoglobin ABG Sodium ABG Potassium ABG Glucose Oxyhemoglobin Sodium 148 H Potassium 5.7 H D Chloride 108.0 H Carbon Dioxide 31 H BUN 46 H Creatinine Glucose 139 H POC Glucose Lactic Acid Phosphorus 4.80 H D Magnesium 3.00 H Ferritin 976.4 H Lactate Dehydrogenase 630 H C-Reactive Protein NT-Pro-B Natriuret Pep Total Protein Albumin Triglycerides Arterial Blood Glucose Ur Specific [place] Coronavirus (PCR) 03/15/21 03/15/21 03/15/21 11:56 14:05 17:09 WBC RBC Hgb Hct MCV MCHC RDW Lymph % (Auto) [place] % (Auto) [place] # (Auto) Seg Neutrophils % Seg Neuts % (Manual) Lymphocytes % (Manual) Monocytes % (Manual) Nucleated RBC % Seg Neutrophils # Seg Neutrophils # Man Lymphocytes # (Manual) Monocytes # (Manual) PT INR D-Dimer ABG pH POC ABG pCO2 POC ABG pO2 ABG pO2 52.1 L ABG HCO3 36.6 H ABG O2 Saturation 87.6 L ABG Base Excess 9.5 H ABG Hemoglobin ABG Oxyhemoglobin ABG Sodium ABG Potassium ABG Glucose Oxyhemoglobin 85.7 L Sodium Potassium Chloride Carbon Dioxide BUN Creatinine Glucose POC Glucose 219 H 263 H Lactic Acid Phosphorus Magnesium Ferritin Lactate Dehydrogenase C-Reactive Protein NT-Pro-B Natriuret Pep Total Protein Albumin Triglycerides Arterial Blood Glucose Ur Specific [place] Coronavirus (PCR) 03/16/21 03/16/21 03/16/21 00:32 04:11 04:11 WBC 11.9 H RBC Hgb Hct MCV MCHC 30 L RDW Lymph % (Auto) [place] % (Auto) [place] # (Auto) Seg Neutrophils % Seg Neuts % (Manual) Lymphocytes % (Manual) Monocytes % (Manual) Nucleated RBC % Seg Neutrophils # Seg Neutrophils # Man Lymphocytes # (Manual) Monocytes # (Manual) PT INR D-Dimer ABG pH POC ABG pCO2 POC ABG pO2 ABG pO2 ABG HCO3 ABG O2 Saturation ABG Base Excess ABG Hemoglobin ABG Oxyhemoglobin ABG Sodium ABG Potassium ABG Glucose Oxyhemoglobin Sodium 151 H Potassium Chloride Carbon Dioxide 35 H BUN 48 H Creatinine Glucose 152 H POC Glucose 165 H Lactic Acid Phosphorus Magnesium Ferritin Lactate Dehydrogenase C-Reactive Protein NT-Pro-B Natriuret Pep Total Protein Albumin Triglycerides Arterial Blood Glucose Ur Specific [place] Coronavirus (PCR) 03/16/21 03/16/21 03/16/21 04:11 05:26 11:35 WBC RBC Hgb Hct MCV MCHC RDW Lymph % (Auto) [place] % (Auto) [place] # (Auto) Seg Neutrophils % Seg Neuts % (Manual) Lymphocytes % (Manual) Monocytes % (Manual) Nucleated RBC % Seg Neutrophils # Seg Neutrophils # Man Lymphocytes # (Manual) Monocytes # (Manual) PT INR D-Dimer ABG pH POC ABG pCO2 POC ABG pO2 ABG pO2 ABG HCO3 ABG O2 Saturation ABG Base Excess ABG Hemoglobin ABG Oxyhemoglobin ABG Sodium ABG Potassium ABG Glucose Oxyhemoglobin Sodium Potassium Chloride Carbon Dioxide BUN Creatinine Glucose POC Glucose 162 H 187 H Lactic Acid Phosphorus Magnesium Ferritin Lactate Dehydrogenase C-Reactive Protein NT-Pro-B Natriuret Pep Total Protein Albumin Triglycerides 267 H Arterial Blood Glucose Ur Specific [place] Coronavirus (PCR) 03/16/21 03/16/21 03/16/21 17:29 22:25 23:22 WBC RBC Hgb Hct MCV MCHC RDW Lymph % (Auto) [place] % (Auto) [place] # (Auto) Seg Neutrophils % Seg Neuts % (Manual) Lymphocytes % (Manual) Monocytes % (Manual) Nucleated RBC % Seg Neutrophils # Seg Neutrophils # Man Lymphocytes # (Manual) Monocytes # (Manual) PT INR D-Dimer ABG pH POC ABG pCO2 POC ABG pO2 ABG pO2 ABG HCO3 ABG O2 Saturation ABG Base Excess ABG Hemoglobin ABG Oxyhemoglobin ABG Sodium ABG Potassium ABG Glucose Oxyhemoglobin Sodium Potassium Chloride Carbon Dioxide BUN Creatinine Glucose POC Glucose 237 H 165 H 189 H Lactic Acid Phosphorus Magnesium Ferritin Lactate Dehydrogenase C-Reactive Protein NT-Pro-B Natriuret Pep Total Protein Albumin Triglycerides Arterial Blood Glucose Ur Specific [place] Coronavirus (PCR) 03/17/21 03/17/21 03/17/21 04:40 04:40 04:40 WBC 14.1 H RBC Hgb Hct MCV MCHC RDW 15.3 H Lymph % (Auto) 12.6 L [place] % (Auto) 11.3 H [place] # (Auto) 1.6 H Seg Neutrophils % 74.9 H Seg Neuts % (Manual) Lymphocytes % (Manual) Monocytes % (Manual) Nucleated RBC % Seg Neutrophils # 10.5 H Seg Neutrophils # Man Lymphocytes # (Manual) Monocytes # (Manual) PT INR D-Dimer 1359.12 H ABG pH POC ABG pCO2 POC ABG pO2 ABG pO2 ABG HCO3 ABG O2 Saturation ABG Base Excess ABG Hemoglobin ABG Oxyhemoglobin ABG Sodium ABG Potassium ABG Glucose Oxyhemoglobin Sodium 148 H Potassium Chloride 107.5 H Carbon Dioxide 33 H BUN 42 H Creatinine Glucose 183 H POC Glucose Lactic Acid Phosphorus Magnesium 2.70 H Ferritin Lactate Dehydrogenase C-Reactive Protein NT-Pro-B Natriuret Pep Total Protein Albumin Triglycerides Arterial Blood Glucose Ur Specific [place] Coronavirus (PCR) 03/17/21 03/17/21 03/17/21 05:53 11:05 11:51 WBC RBC Hgb Hct MCV MCHC RDW Lymph % (Auto) [place] % (Auto) [place] # (Auto) Seg Neutrophils % Seg Neuts % (Manual) Lymphocytes % (Manual) Monocytes % (Manual) Nucleated RBC % Seg Neutrophils # Seg Neutrophils # Man Lymphocytes # (Manual) Monocytes # (Manual) PT INR D-Dimer ABG pH POC ABG pCO2 POC ABG pO2 ABG pO2 ABG HCO3 35.7 H ABG O2 Saturation ABG Base Excess 8.7 H ABG Hemoglobin ABG Oxyhemoglobin ABG Sodium ABG Potassium ABG Glucose Oxyhemoglobin 94.2 L Sodium Potassium Chloride Carbon Dioxide BUN Creatinine Glucose POC Glucose 176 H 197 H Lactic Acid Phosphorus Magnesium Ferritin Lactate Dehydrogenase C-Reactive Protein NT-Pro-B Natriuret Pep Total Protein Albumin Triglycerides Arterial Blood Glucose Ur Specific [place] Coronavirus (PCR) 03/17/21 03/17/21 03/17/21 16:54 21:10 23:33 WBC RBC Hgb Hct MCV MCHC RDW Lymph % (Auto) [place] % (Auto) [place] # (Auto) Seg Neutrophils % Seg Neuts % (Manual) Lymphocytes % (Manual) Monocytes % (Manual) Nucleated RBC % Seg Neutrophils # Seg Neutrophils # Man Lymphocytes # (Manual) Monocytes # (Manual) PT INR D-Dimer ABG pH POC ABG pCO2 POC ABG pO2 ABG pO2 ABG HCO3 ABG O2 Saturation ABG Base Excess ABG Hemoglobin ABG Oxyhemoglobin ABG Sodium ABG Potassium ABG Glucose Oxyhemoglobin Sodium Potassium Chloride Carbon Dioxide BUN Creatinine Glucose POC Glucose 135 H 160 H 138 H Lactic Acid Phosphorus Magnesium Ferritin Lactate Dehydrogenase C-Reactive Protein NT-Pro-B Natriuret Pep Total Protein Albumin Triglycerides Arterial Blood Glucose Ur Specific [place] Coronavirus (PCR) 03/18/21 03/18/21 03/18/21 04:18 04:50 05:43 WBC RBC Hgb Hct MCV MCHC RDW Lymph % (Auto) [place] % (Auto) [place] # (Auto) Seg Neutrophils % Seg Neuts % (Manual) Lymphocytes % (Manual) Monocytes % (Manual) Nucleated RBC % Seg Neutrophils # Seg Neutrophils # Man Lymphocytes # (Manual) Monocytes # (Manual) PT INR D-Dimer ABG pH POC ABG pCO2 POC ABG pO2 ABG pO2 59.8 L ABG HCO3 36.5 H ABG O2 Saturation 90.7 L ABG Base Excess 9.4 H ABG Hemoglobin 12.0 L ABG Oxyhemoglobin ABG Sodium ABG Potassium ABG Glucose Oxyhemoglobin 88.9 L Sodium Potassium Chloride 107.2 H Carbon Dioxide 34 H BUN 38 H Creatinine 0.7 L Glucose 136 H POC Glucose 128 H Lactic Acid Phosphorus Magnesium Ferritin Lactate Dehydrogenase C-Reactive Protein NT-Pro-B Natriuret Pep Total Protein Albumin Triglycerides Arterial Blood Glucose Ur Specific [place] Coronavirus (PCR) 03/18/21 03/18/21 03/18/21 11:20 17:35 23:35 WBC RBC Hgb Hct MCV MCHC RDW Lymph % (Auto) [place] % (Auto) [place] # (Auto) Seg Neutrophils % Seg Neuts % (Manual) Lymphocytes % (Manual) Monocytes % (Manual) Nucleated RBC % Seg Neutrophils # Seg Neutrophils # Man Lymphocytes # (Manual) Monocytes # (Manual) PT INR D-Dimer ABG pH POC ABG pCO2 POC ABG pO2 ABG pO2 70.7 L ABG HCO3 33.6 H ABG O2 Saturation ABG Base Excess 8.0 H ABG Hemoglobin ABG Oxyhemoglobin ABG Sodium ABG Potassium ABG Glucose Oxyhemoglobin 93.7 L Sodium Potassium Chloride Carbon Dioxide BUN Creatinine Glucose POC Glucose 189 H 144 H Lactic Acid Phosphorus Magnesium Ferritin Lactate Dehydrogenase C-Reactive Protein NT-Pro-B Natriuret Pep Total Protein Albumin Triglycerides Arterial Blood Glucose Ur Specific [place] Coronavirus (PCR) 03/19/21 03/19/21 03/19/21 02:35 04:20 04:20 WBC 14.0 H RBC Hgb Hct MCV MCHC RDW Lymph % (Auto) [place] % (Auto) [place] # (Auto) Seg Neutrophils % Seg Neuts % (Manual) Lymphocytes % (Manual) Monocytes % (Manual) Nucleated RBC % Seg Neutrophils # Seg Neutrophils # Man Lymphocytes # (Manual) Monocytes # (Manual) PT INR D-Dimer ABG pH POC ABG pCO2 POC ABG pO2 ABG pO2 ABG HCO3 32.0 H ABG O2 Saturation ABG Base Excess 5.2 H ABG Hemoglobin 13.6 L ABG Oxyhemoglobin ABG Sodium ABG Potassium ABG Glucose Oxyhemoglobin 94.6 L Sodium 146 H Potassium Chloride 109.3 H Carbon Dioxide BUN 36 H Creatinine Glucose 203 H POC Glucose Lactic Acid Phosphorus Magnesium Ferritin Lactate Dehydrogenase C-Reactive Protein NT-Pro-B Natriuret Pep Total Protein Albumin Triglycerides 254 H Arterial Blood Glucose Ur Specific [place] Coronavirus (PCR) 03/19/21 03/19/21 03/19/21 05:45 11:36 23:51 WBC RBC Hgb Hct MCV MCHC RDW Lymph % (Auto) [place] % (Auto) [place] # (Auto) Seg Neutrophils % Seg Neuts % (Manual) Lymphocytes % (Manual) Monocytes % (Manual) Nucleated RBC % Seg Neutrophils # Seg Neutrophils # Man Lymphocytes # (Manual) Monocytes # (Manual) PT INR D-Dimer ABG pH POC ABG pCO2 POC ABG pO2 ABG pO2 ABG HCO3 ABG O2 Saturation ABG Base Excess ABG Hemoglobin ABG Oxyhemoglobin ABG Sodium ABG Potassium ABG Glucose Oxyhemoglobin Sodium Potassium Chloride Carbon Dioxide BUN Creatinine Glucose POC Glucose 164 H 172 H 140 H Lactic Acid Phosphorus Magnesium Ferritin Lactate Dehydrogenase C-Reactive Protein NT-Pro-B Natriuret Pep Total Protein Albumin Triglycerides Arterial Blood Glucose Ur Specific [place] Coronavirus (PCR) 03/20/21 03/20/21 03/20/21 03:29 04:45 04:45 WBC RBC Hgb Hct MCV 95 H MCHC RDW 15.7 H Lymph % (Auto) [place] % (Auto) [place] # (Auto) Seg Neutrophils % Seg Neuts % (Manual) Lymphocytes % (Manual) Monocytes % (Manual) Nucleated RBC % Seg Neutrophils # Seg Neutrophils # Man Lymphocytes # (Manual) Monocytes # (Manual) PT INR D-Dimer ABG pH 7.349 L POC ABG pCO2 POC ABG pO2 ABG pO2 ABG HCO3 33.7 H ABG O2 Saturation ABG Base Excess 6.4 H ABG Hemoglobin 11.8 L ABG Oxyhemoglobin ABG Sodium ABG Potassium ABG Glucose Oxyhemoglobin 93.9 L Sodium 146 H Potassium 5.5 H Chloride 111.1 H Carbon Dioxide BUN 34 H Creatinine 0.7 L Glucose 145 H POC Glucose Lactic Acid Phosphorus Magnesium 2.50 H Ferritin Lactate Dehydrogenase C-Reactive Protein NT-Pro-B Natriuret Pep Total Protein Albumin Triglycerides Arterial Blood Glucose Ur Specific [place] Coronavirus (PCR) 03/20/21 03/20/21 03/20/21 05:41 09:08 11:54 WBC RBC Hgb Hct MCV MCHC RDW Lymph % (Auto) [place] % (Auto) [place] # (Auto) Seg Neutrophils % Seg Neuts % (Manual) Lymphocytes % (Manual) Monocytes % (Manual) Nucleated RBC % Seg Neutrophils # Seg Neutrophils # Man Lymphocytes # (Manual) Monocytes # (Manual) PT INR D-Dimer ABG pH POC ABG pCO2 POC ABG pO2 ABG pO2 ABG HCO3 ABG O2 Saturation ABG Base Excess ABG Hemoglobin ABG Oxyhemoglobin ABG Sodium ABG Potassium ABG Glucose Oxyhemoglobin Sodium Potassium Chloride Carbon Dioxide BUN Creatinine Glucose POC Glucose 108 H 132 H 162 H Lactic Acid Phosphorus Magnesium Ferritin Lactate Dehydrogenase C-Reactive Protein NT-Pro-B Natriuret Pep Total Protein Albumin Triglycerides Arterial Blood Glucose Ur Specific [place] Coronavirus (PCR) 03/20/21 03/21/21 03/21/21 17:28 00:31 04:44 WBC RBC Hgb Hct MCV MCHC RDW Lymph % (Auto) [place] % (Auto) [place] # (Auto) Seg Neutrophils % Seg Neuts % (Manual) Lymphocytes % (Manual) Monocytes % (Manual) Nucleated RBC % Seg Neutrophils # Seg Neutrophils # Man Lymphocytes # (Manual) Monocytes # (Manual) PT INR D-Dimer ABG pH POC ABG pCO2 POC ABG pO2 ABG pO2 ABG HCO3 ABG O2 Saturation ABG Base Excess ABG Hemoglobin ABG Oxyhemoglobin ABG Sodium ABG Potassium ABG Glucose Oxyhemoglobin Sodium Potassium Chloride 108.3 H Carbon Dioxide BUN 30 H Creatinine 0.7 L Glucose POC Glucose 160 H 122 H Lactic Acid Phosphorus Magnesium Ferritin Lactate Dehydrogenase C-Reactive Protein NT-Pro-B Natriuret Pep Total Protein Albumin Triglycerides Arterial Blood Glucose Ur Specific [place] Coronavirus (PCR) 03/21/21 03/21/21 09:18 10:09 WBC RBC Hgb Hct MCV MCHC RDW Lymph % (Auto) [place] % (Auto) [place] # (Auto) Seg Neutrophils % Seg Neuts % (Manual) Lymphocytes % (Manual) Monocytes % (Manual) Nucleated RBC % Seg Neutrophils # Seg Neutrophils # Man Lymphocytes # (Manual) Monocytes # (Manual) PT INR D-Dimer ABG pH POC ABG pCO2 POC ABG pO2 ABG pO2 60.7 L ABG HCO3 30.6 H ABG O2 Saturation 93.6 L ABG Base Excess 5.3 H ABG Hemoglobin ABG Oxyhemoglobin ABG Sodium ABG Potassium ABG Glucose Oxyhemoglobin 91.7 L Sodium Potassium Chloride Carbon Dioxide BUN Creatinine Glucose POC Glucose 169 H Lactic Acid Phosphorus Magnesium Ferritin Lactate Dehydrogenase C-Reactive Protein NT-Pro-B Natriuret Pep Total Protein Albumin Triglycerides Arterial Blood Glucose Ur Specific [place] Coronavirus (PCR) Chest x-ray: other (none today) Allied health notes reviewed: RT
[2021-03-21] MEDS: chlordiazePOXIDE 25 MG CAP PO SCH ×2 (14:15→22:37)
--- NOTE | 2021-03-21 15:56 | Progress Note ---
Assessment and Plan Cultures: SARS CoV2 PCR: positive 03/08/2021 blood culture: no growth 03/10/2021 sputum culture: Usual respiratory marlyn 03/16/2021 blood culture: In process 03/18/2021 sputum culture: Stenotrophomonas A/P: 61-year-old male with diabetes, hypertension admitted to the hospital with complaints of shortness of breath and feeling weak for the last 1 week: #Sepsis secondary to bilateral pneumonia: secondary to COVID-19. Elevated inflammatory markers. WBC 22.6, creatinine 1.3, ferritin 877, CRP 18.0, LDH 624, procalcitonin 0.18. D-dimer >10k. CTA negative for pulmonary embolism, severe patchy groundglass opacities. #New fever: probably COVID related. #Acute hypoxic respiratory failure: initially required BiPAP, now intubated, on the vent. #DM #HTN Recs: -Start Bactrim for stenotrophomonas. Steno also colonizes tube, as such would change when possible -Continue steroids per pulm, on solumedrol, would not extend beyond 10 days especially since patient also received Actemra. -completed IV remdesivir -s/p Actemra 03/10/2021 -prophylactic anticoagulation based on d-dimer per hospital protocol Nayan Goins MD [facility] O: [phone] F: [phone] Subjective Date of service: 03/21/21 Principal diagnosis: COVID-19 infection; DM II; Bilateral pneumonia; Obesity; HTN Interval history: Febrile overnight to 100.9, no other acute changes. Objective - Exam Narrative Exam: Physical exam deferred to reduce risk of transmission of COVID-19. Please refer to primary team's note. - Constitutional Vitals: Vital Signs Temp Pulse Resp BP Pulse Ox 99 F 110 H 24 110/82 94 03/21/21 12:00 03/21/21 14:23 03/21/21 12:00 03/21/21 14:23 03/21/21 14:23 Temperature -Last 24 Hours Temperature 99 F Temperature 100 F Temperature 100.2 F Temperature 100.9 F - Labs CBC & Chem 7: 03/20/21 04:45 03/21/21 04:44 Labs: Abnormal lab results 01/03/21/21 03/21/21 Range/Units 17:28 00:31 04:44 ABG pO2 (80.0-90.0) mm Hg ABG HCO3 (20.0-26.0) mmol/L ABG O2 Saturation (95.0-99.0) % ABG Base Excess (-2.0-3.0) mmol/L Oxyhemoglobin (95.0-99.0) % Chloride 108.3 H (98-107) mmol/L BUN 30 H (9-20) mg/dL Creatinine 0.7 L (0.8-1.3) mg/dL POC Glucose 160 H 122 H (70-105) mg/dL 03/21/21 03/21/21 03/21/21 Range/Units 09:18 10:09 13:20 ABG pO2 60.7 L (80.0-90.0) mm Hg ABG HCO3 30.6 H (20.0-26.0) mmol/L ABG O2 Saturation 93.6 L (95.0-99.0) % ABG Base Excess 5.3 H (-2.0-3.0) mmol/L Oxyhemoglobin 91.7 L (95.0-99.0) % Chloride (98-107) mmol/L BUN (9-20) mg/dL Creatinine (0.8-1.3) mg/dL POC Glucose 169 H 122 H (70-105) mg/dL
--- NOTE | 2021-03-21 18:29 | Progress Note ---
<FLORIANMARISABEL ChambersLester - Last Filed: 03/21/21 18:23> Assessment and Plan Assessment and plan: This is a 61-year-old man with HTN and DM admitted with COVID-19 pneumonia, acute hypoxic respiratory failure, sepsis Severe sepsis (POA), COVID 19 PNA, Stenotrophomonas Maltophillia in trachial aspirate -Infectious disease consulted, appreciate recommendation -S/p Actemra 03/10/2021 -IV remdesivir for 5 days -Solumederol 60mg q 8 -weaning started -Prophylactic anticoagulation per hospital protocol -Droplet/isolation precautions -Monitor WBC and temperature curve -03/08 blood culture x2 with no growth to date and tracheal aspirate GNR -stopped vanco this AM -Speciated to Stenotrophomonas Maltophillia -started on bactrim Acute hypoxic respiratory failure -CCM consulted, appreciate recommendations -CT chest shows severe patchy multifocal ground glass airspace disease -Intubated on 03/10 with a 7.50 ETT at 20 for the lips -A.m. vent settings: Assist control tidal volume 450, rate 25, PEEP 8, FiO2 45% -See RT notes for titration -A.m. ABG and CXR noted -VAP bundle -SPO2 monitoring -Albuterol as needed, Brovana and Pulmicort Acute Metabolic Encephalopathy -Avoid delirium -Reorientation as needed -Sedated with propofol and fentanyl -Seroquel, Librium taper -RASS goal -1 to -2 -As needed analgesia -Maintain sleep-wake cycle -Bilateral restraints in place for safety -SAT and SBT when appropriate Hyperkalemia (resolved) -S/p PO Kionex -Strict intake and output via Good catheter -Trend BMP Leukocytosis, elevated D-dimer -Bilateral lower extremity ultrasound negative for DVT, superficial thrombus in left gastrocnemius vein -CTA chest shows no gross pulm embolism -Trend CBC -SCDs to BLE while in bed -Transfuse hemoglobin less than 7 -Treatment dose Lovenox -Monitor for signs of bleeding h/o HTN -Blood pressure monitoring per protocol -Cardiology consulted, appreciate recommendations -Echocardiogram shows a mildly dilated ascending aorta, normal LV systolic function, mild concentric LVH, LVEF 60 to 65% -Hydralazine p.o. -Added metoprolol Obesity -24 hours + 1584 mL -PPI -NTR consulted for tube feedings -BR: Senokot -BM recorded 03/14 -We will obtain KUB Endo: h/o DM -Avoid hypoglycemia -SSI, lantus->increase as needed -Accu-Cheks q. 6 The high probability of a clinically significant, sudden or life threatening deterioration of the [multi] system(s) required my full and direct attention, intervention and personal management. The aggregate critical care time was [60] minutes. This time is in addition to time spent performing reported procedures but includes the following: [x] Data Review and interpretation [x] Patient assessment and monitoring of vital signs [x] Documentation [x] Medication orders and management Disposition Plan: ICU Total Time Spent with Patient (Minutes): 60 History Interval history: This is a 61-year-old male with HTN and DM who presented to the emergency department on 03/09 with shortness of breath and hypoxia via EMS. Patient had apparently been feeling ill for proxy 1 week prior to mentation. Upon EMS arrival patient SPO2 was in the low 70s and improved to upper 80slow 90s on nonrebreather and he was transported to [facility] in the emergency department patient was noted to be hypoxic and placed on a BiPAP with improvement to mentation and hypoxia. CXR showed bilateral patchy infiltrates. Lab work showed leukocytosis, elevated D-dimer, hyponatremia, hypochloremia and elevated COVID-19 markers with elevated BNP. CTA chest showed no pulmonary embolism. Patient was admitted to the hospitalist service as a COVID-19 PUI and started on antibiotics and Decadron with consult to infectious disease. 03/09: The patient was seen and evaluated today, and he was found to be hemodynamically stable. The patient is currently on BiPAP for possible COVID-19 pneumonia. He was started on Lovenox 1mg/kg for DVT ppx in the setting of d- dimer > 10,000. Infectious Disease was consulted. The patient is pending a TTE. 03/10: No acute events overnight, patient was intubated in the afternoon transferred to ICU 03/11: Patient started on Lantus, free water flushes increased, propofol drip resumed and oral antihypertensive added. 03/12: lantus increased, k at 5, will monitor. I updated his family and his stated that he is not vaccinated. He does have HTN and she will call the RN to update home medications. She did say he takes bystolic and amlopine. She inquired about ventilator and lab work. She had no further questions. 03/13: KVNG overnight. Patient remains hyperglycemic, basal insulin adjusted and increased to Q12hrs. Patient is overall net positive since admit X1 dose of IV lasix, repeat BMP this afternoon. 03/14: Failed SAT this am due to increase agitation, tachycardia and hypertensio n. Remains on propofol and fentanyl gtt. Hyperkalemia treated with PO kayaxalate. Patient responded to IV lasix yesterday additional dose again today for a net negative balance. Repeat BMP this afternoon. Insulin adjusted for hyperglycemia. 03/15: Remains encephalopathic, not following commansd. Orders placed for CT head/Brain and Neuro consulted. Rectal bleeding subsided, most likely due to hemorrhoids. H&H is stable will continue to monitor. Kayaxexalate for high K, repeat labs 4 to 6hrs post treatment. 03/16: Still agiated this am, CT head with no acute Abn. CXR and ABG noted- evolving pna and worsening hypoxia, now with low grade fevers. Sputum culture ordered, IV Abx added, ID on cosult. 03/17: This am ABG noted, hypoxia improved. Continue to wean FiO2 as tolerated. Still with low grade fevers, on IV Abx per ID. Still with periods of confusion despite sedation, seroquel increased. F/u CXR in the am 03/18: still very agitated especially when off sedation, with hypertension and tachycardia. Continue sedation for RASS -2, PRN antihypertensive for SPB greater than 160. This febrile this am, continue current IV abx per ID 03/19: Patient afebrile overnight, continue IV Abx per ID. ABG also improved this am, continue to wean FIO2 as tolerated. PRN antihypertensive for hypertension. 03/20: Hyperkalemia treated with Kayexalate, Good discontinued, vancomycin and cefepime stopped started Bactrim by ID. Steroid taper started. 03/21: BB started for hypertension, Seroquel increased for agitation and Librium started no acute events reported overnight. [facility] made vent changes Hospitalist Physical - Physical exam Narrative exam: General appearance: Present: well-nourished, obese, other (sedated) - EENT Eyes: Present: PERRL, EOM intact ENT: hearing intact, clear oral mucosa - Neck Neck: Present: normal ROM - Respiratory Respiratory effort: normal Respiratory: bilateral: diminished - Cardiovascular Rhythm: regular Heart Sounds: Present: S1 & S2. Absent: systolic murmur, diastolic murmur - Extremities Extremities: no ischemia, pulses intact, pulses symmetrical, No edema, normal temperature, normal color Peripheral Pulses: within normal limits - Abdominal General gastrointestinal: soft, non-tender, non-distended, normal bowel sounds - Integumentary Integumentary: Present: warm, dry - Psychiatric Psychiatric: other - Neurologic Neurologic: other - Allied Health Allied health notes reviewed: nursing, RT - Constitutional Vitals: Temp Pulse Resp BP Pulse Ox 99.2 F 107 H 24 195/109 93 03/21/21 16:00 03/21/21 17:42 03/21/21 12:00 03/21/21 16:54 03/21/21 17:42 General appearance: Present: no acute distress, well-nourished, obese, other (Intubated and sedated) Results - Labs CBC & Chem 7: 03/20/21 04:45 03/21/21 04:44 Labs: Laboratory Last Values WBC 9.8 K/mm3 (4.5-11.0) 03/20/21 04:45 RBC 4.01 M/mm3 (3.65-5.03) 03/20/21 04:45 Hgb 12.0 gm/dl (11.8-15.2) 03/20/21 04:45 Hct 37.9 % (35.5-45.6) 03/20/21 04:45 MCV 95 fl (84-94) H 03/20/21 04:45 MCH 30 pg (28-32) 03/20/21 04:45 MCHC 32 % (32-34) 03/20/21 04:45 RDW 15.7 % (13.2-15.2) H 03/20/21 04:45 Plt Count 259 K/mm3 (140-440) 03/20/21 04:45 Lymph % (Auto) 12.6 % (13.4-35.0) L 03/17/21 04:40 Mcclain % (Auto) 11.3 % (0.0-7.3) H 03/17/21 04:40 Eos % (Auto) 0.4 % (0.0-4.3) 03/17/21 04:40 Baso % (Auto) 0.8 % (0.0-1.8) 03/17/21 04:40 Lymph # (Auto) 1.8 K/mm3 (1.2-5.4) 03/17/21 04:40 Mcclain # (Auto) 1.6 K/mm3 (0.0-0.8) H 03/17/21 04:40 Eos # (Auto) 0.1 K/mm3 (0.0-0.4) 03/17/21 04:40 Baso # (Auto) 0.1 K/mm3 (0.0-0.1) 03/17/21 04:40 Add Manual Diff Complete 03/10/21 04:29 Total Counted 100 03/10/21 04:29 Seg Neutrophils % 74.9 % (40.0-70.0) H 03/17/21 04:40 Seg Neuts % (Manual) 94.0 % (40.0-70.0) H 03/10/21 04:29 Band Neutrophils % 0 % 03/10/21 04:29 Lymphocytes % (Manual) 1.0 % (13.4-35.0) L 03/10/21 04:29 Reactive Lymphs % (Man) 0 % 03/10/21 04:29 Monocytes % (Manual) 5.0 % (0.0-7.3) 03/10/21 04:29 Eosinophils % (Manual) 0 % (0.0-4.3) 03/10/21 04:29 Basophils % (Manual) 0 % (0.0-1.8) 03/10/21 04:29 Metamyelocytes % 0 % 03/10/21 04:29 Myelocytes % 0 % 03/10/21 04:29 Promyelocytes % 0 % 03/10/21 04:29 Blast Cells % 0 % 03/10/21 04:29 Nucleated RBC % 3.0 % (0.0-0.9) H 03/10/21 04:29 Seg Neutrophils # 10.5 K/mm3 (1.8-7.7) H 03/17/21 04:40 Seg Neutrophils # Man 19.4 K/mm3 (1.8-7.7) H 03/10/21 04:29 Band Neutrophils # 0.0 K/mm3 03/10/21 04:29 Lymphocytes # (Manual) 0.2 K/mm3 (1.2-5.4) L 03/10/21 04:29 Abs React Lymphs (Man) 0.0 K/mm3 03/10/21 04:29 Monocytes # (Manual) 1.0 K/mm3 (0.0-0.8) H 03/10/21 04:29 Eosinophils # (Manual) 0.0 K/mm3 (0.0-0.4) 03/10/21 04:29 Basophils # (Manual) 0.0 K/mm3 (0.0-0.1) 03/10/21 04:29 Metamyelocytes # 0.0 K/mm3 03/10/21 04:29 Myelocytes # 0.0 K/mm3 03/10/21 04:29 Promyelocytes # 0.0 K/mm3 03/10/21 04:29 Blast Cells # 0.0 K/mm3 03/10/21 04:29 WBC Morphology Not Reportable 03/10/21 04:29 Hypersegmented Neuts Not Reportable 03/10/21 04:29 Hyposegmented Neuts Not Reportable 03/10/21 04:29 Hypogranular Neuts Not Reportable 03/10/21 04:29 Smudge Cells Not Reportable 03/10/21 04:29 Toxic Granulation Not Reportable 03/10/21 04:29 Toxic Vacuolation Not Reportable 03/10/21 04:29 Dohle Bodies Not Reportable 03/10/21 04:29 Pelger-Huet Anomaly Not Reportable 03/10/21 04:29 Mely Rods Not Reportable 03/10/21 04:29 Platelet Estimate Consistent w auto 03/10/21 04:29 Clumped Platelets Not Reportable 03/10/21 04:29 Plt Clumps, EDTA Not Reportable 03/10/21 04:29 Large Platelets Not Reportable 03/10/21 04:29 Giant Platelets Not Reportable 03/10/21 04:29 Platelet Satelliting Not Reportable 03/10/21 04:29 Plt Morphology Comment Not Reportable 03/10/21 04:29 RBC Morphology Normal 03/10/21 04:29 Dimorphic RBCs Not Reportable 03/10/21 04:29 Polychromasia Not Reportable 03/10/21 04:29 Hypochromasia Not Reportable 03/10/21 04:29 Poikilocytosis Not Reportable 03/10/21 04:29 Anisocytosis Not Reportable 03/10/21 04:29 Microcytosis Not Reportable 03/10/21 04:29 Macrocytosis Not Reportable 03/10/21 04:29 Spherocytes Not Reportable 03/10/21 04:29 Pappenheimer Bodies Not Reportable 03/10/21 04:29 Sickle Cells Not Reportable 03/10/21 04:29 Target Cells Not Reportable 03/10/21 04:29 Tear Drop Cells Not Reportable 03/10/21 04:29 Ovalocytes Not Reportable 03/10/21 04:29 Helmet Cells Not Reportable 03/10/21 04:29 Longo-Oldwick Bodies Not Reportable 03/10/21 04:29 Mobile Rings Not Reportable 03/10/21 04:29 Shama Cells Not Reportable 03/10/21 04:29 Bite Cells Not Reportable 03/10/21 04:29 Crenated Cell Not Reportable 03/10/21 04:29 Elliptocytes Not Reportable 03/10/21 04:29 Acanthocytes (Spur) Not Reportable 03/10/21 04:29 Rouleaux Not Reportable 03/10/21 04:29 Hemoglobin C Crystals Not Reportable 03/10/21 04:29 Schistocytes Not Reportable 03/10/21 04:29 Malaria parasites Not Reportable 03/10/21 04:29 Shaheen Bodies Not Reportable 03/10/21 04:29 Hem Pathologist Commnt No 03/10/21 04:29 PT 16.1 Sec. (12.2-14.9) H 03/08/21 20:24 INR 1.17 (0.87-1.13) H 03/08/21 20:24 APTT 28.0 Sec. (24.2-36.6) 03/08/21 20:24 D-Dimer 1359.12 ng/mlDDU (0-234) H 03/17/21 04:40 ABG pH 7.428 pH Units (7.350-7.450) 03/21/21 09:18 POC ABG pCO2 71.9 mmHg (32.0-48.0) H 03/12/21 21:54 ABG pCO2 47.4 mm Hg 03/21/21 09:18 POC ABG pO2 53.6 mmHg (83-108) L 03/12/21 21:54 ABG pO2 60.7 mm Hg (80.0-90.0) L 03/21/21 09:18 POC ABG HCO3 30.0 03/12/21 21:54 ABG HCO3 30.6 mmol/L (20.0-26.0) H 03/21/21 09:18 ABG O2 Saturation 93.6 % (95.0-99.0) L 03/21/21 09:18 ABG O2 Content 18.0 (0.0-44) 03/21/21 09:18 POC ABG Base Excess 0.5 03/12/21 21:54 ABG Base Excess 5.3 mmol/L (-2.0-3.0) H 03/21/21 09:18 ABG Hemoglobin 14.0 gm/dl (14.0-18.0) 03/21/21 09:18 ABG Oxyhemoglobin 84.8 (94-98) L 03/12/21 21:54 ABG Carboxyhemoglobin 1.3 % (0.0-5.0) 03/21/21 09:18 ABG Methemoglobin 0.7 % (0.0-1.5) 03/21/21 09:18 ABG Sodium 134.2 mmol/L (136.0-145.0) L 03/12/21 21:54 ABG Potassium 4.9 mmol/L (3.40-4.50) H 03/12/21 21:54 ABG Chloride 99.0 mmol/L (98-107) 03/12/21 21:54 ABG Glucose 306 mg/dL (65-95) H 03/12/21 21:54 Oxyhemoglobin 91.7 % (95.0-99.0) L 03/21/21 09:18 Carboxyhemoglobin 0.6 (0.5-1.5) 03/12/21 21:54 FiO2 45 % 03/21/21 09:18 FiO2 % 50.0 03/12/21 21:54 Sodium 145 mmol/L (137-145) 03/21/21 04:44 Potassium 4.6 mmol/L (3.6-5.0) 03/21/21 04:44 Chloride 108.3 mmol/L (98-107) H 03/21/21 04:44 Carbon Dioxide 29 mmol/L (22-30) 03/21/21 04:44 Anion Gap 12 mmol/L 03/21/21 04:44 BUN 30 mg/dL (9-20) H 03/21/21 04:44 Creatinine 0.7 mg/dL (0.8-1.3) L 03/21/21 04:44 Estimated GFR > 60 ml/min 03/21/21 04:44 BUN/Creatinine Ratio 43 % 03/21/21 04:44 Glucose 98 mg/dL (75-100) 03/21/21 04:44 POC Glucose 121 mg/dL (70-105) H 03/21/21 17:25 Lactic Acid 1.90 mmol/L (0.7-2.0) 03/08/21 23:51 Calcium 8.4 mg/dL (8.4-10.2) 03/21/21 04:44 Phosphorus 4.10 mg/dL (2.5-4.5) 03/20/21 04:45 Magnesium 2.50 mg/dL (1.7-2.3) H 03/20/21 04:45 Ferritin 976.4 ng/mL (30.0-300.0) H 03/15/21 04:00 Total Bilirubin 0.20 mg/dL (0.1-1.2) 03/12/21 08:03 AST 10 units/L (5-40) 03/12/21 08:03 ALT 16 units/L (7-56) 03/12/21 08:03 Alkaline Phosphatase 77 units/L (35-129) 03/12/21 08:03 Lactate Dehydrogenase 630 units/L (91-180) H 03/15/21 06:06 C-Reactive Protein 0.40 mg/dL (0.00-1.30) 03/17/21 04:40 NT-Pro-B Natriuret Pep 1053 pg/mL (0-900) H 03/08/21 20:24 Total Protein 6.0 g/dL (6.3-8.2) L 03/12/21 08:03 Albumin 2.9 g/dL (3.9-5) L 03/12/21 08:03 Albumin/Globulin Ratio 0.9 % 03/12/21 08:03 Triglycerides 254 mg/dL (2-149) H 03/19/21 04:20 Procalcitonin 0.05 ng/mL (<0.15) 03/17/21 04:40 Arterial Blood Glucose 306 mg/dL (65-95) H 03/12/21 21:54 Arterial Blood Ionized Calcium 5.0 mg/dL (4.6-5.3) 03/12/21 21:54 Urine Color Yellow (Yellow) 03/09/21 04:10 Urine Turbidity Slightly-cloudy (Clear) 03/09/21 04:10 Urine pH 5.0 (5.0-7.0) 03/09/21 04:10 Ur Specific Worth 1.041 (1.003-1.030) H 03/09/21 04:10 Urine Protein 100 mg/dl mg/dL (Negative) 03/09/21 04:10 Urine Glucose (UA) Neg mg/dL (Negative) 03/09/21 04:10 Urine Ketones Neg mg/dL (Negative) 03/09/21 04:10 Urine Blood Mod (Negative) 03/09/21 04:10 Urine Nitrite Neg (Negative) 03/09/21 04:10 Urine Bilirubin Neg (Negative) 03/09/21 04:10 Urine Urobilinogen 2.0 mg/dL (<2.0) 03/09/21 04:10 Ur Leukocyte Esterase Neg (Negative) 03/09/21 04:10 Urine WBC (Auto) 4.0 /HPF (0.0-6.0) 03/09/21 04:10 Urine RBC (Auto) 1.0 /HPF (0.0-6.0) 03/09/21 04:10 Urine Bacteria (Auto) 1+ /HPF (Negative) 03/09/21 04:10 Urine Mucus Few /HPF 03/09/21 04:10 Coronavirus (PCR) Positive (Negative) A 03/09/21 08:00 Miscellaneous Test Flexitest 1 03/16/21 09:48 Microbiology: Microbiology 03/16/21 13:51 Peripheral/Venous Blood Culture - Final NO GROWTH AFTER 5 DAYS 03/16/21 13:51 Peripheral/Venous Blood Culture - Final NO GROWTH AFTER 5 DAYS 03/17/21 14:27 Tracheal Aspirate Sputum Culture - Final Stenotrophomonas Maltophilia Good/IV: Voiding Method Condom Catheter Active Medications - Current Medications Current Medications: Generic Name Dose Route Start Last Admin Trade Name Freq PRN Reason Stop Dose Admin Acetaminophen 650 mg 03/09/21 01:26 03/17/21 12:08 Acetaminophen 325 Mg Tab PO 650 mg Q4H PRN Administration Pain MILD(1-3)/Fever >100.5/RAYO Albuterol 2.5 mg 03/09/21 01:26 03/18/21 21:06 Albuterol 2.5 Mg/3 Ml Nebu IH 2.5 mg Q4HRT PRN Administration Shortness Of Breath Arformoterol Tartrate 15 mcg 03/11/21 20:00 03/21/21 09:18 Arformoterol 15 Mcg/2 Ml Nebu IH 15 mcg Q12HRT BLANCA Administration Ascorbic Acid 500 mg 03/10/21 14:00 03/21/21 10:03 Ascorbic Acid 500 Mg Tab PO 500 mg BID BLANCA Administration Budesonide 0.25 mg 03/11/21 20:00 03/21/21 09:18 Budesonide 0.25 Mg/2 Ml Nebu IH 0.25 mg Q12HRT BLANCA Administration Chlordiazepoxide HCl 50 mg 03/21/21 14:30 03/21/21 14:15 Chlordiazepoxide 25 Mg Cap PO 03/26/21 14:29 50 mg Q8H BLANCA Administration Dextrose 0 ml 03/20/21 10:52 Dextrose 10% *Hypoglycemia IV PRN PRN Hypoglycemia Enoxaparin Sodium 120 mg 03/20/21 22:00 03/21/21 10:03 Enoxaparin 120 Mg/0.8 Ml Inj SUB-Q 120 mg Q12HR BLANCA Administration Protocol Famotidine 20 mg 03/12/21 22:00 03/21/21 10:03 Famotidine 20 Mg Tab FEEDTUBE 20 mg BID BLANCA Administration Hydralazine HCl 10 mg 03/09/21 01:36 03/21/21 16:24 Hydralazine 20 Mg/1 Ml Inj IV 10 mg Q6H PRN Administration Blood Pressure Hydralazine HCl 75 mg 03/21/21 17:30 Hydralazine 25 Mg Tab PO Q8HR BLANCA Hydrophilic Ointment 1 applic 03/10/21 15:39 Lip Therapy Vaseline TP Q2HR PRN Dry Lips Fentanyl Citrate 2,000 mcg in 100 mls @ 5.897 mls/hr 03/10/21 17:00 03/21/21 15:45 Fentanyl Drip Premix IV 4 mcg/kg/hr TITR BLANCA 23.587 mls/hr Administration Protocol 1 MCG/KG/HR Propofol 1,000 mg in 100 mls @ 3.507 mls/hr 03/11/21 17:00 03/21/21 15:45 Diprivan 10 Mg/Ml IV 25 mcg/kg/min TITR [facility] 17.535 mls/hr Titration Protocol 5 MCG/KG/MIN Insulin Glargine 25 units 03/14/21 10:00 03/20/21 21:24 Insulin Glargine 100 Units/Ml SUB-Q 25 units BID [facility] Administration Insulin Human Lispro 0 unit 03/11/21 18:00 03/21/21 15:35 Insulin Lispro 100 Unit/Ml SUB-Q Not Given Q6HR [facility] Protocol Labetalol HCl 10 mg 03/12/21 21:13 03/21/21 16:54 Labetalol 20 Mg/4 Ml Inj IV 10 mg Q6H PRN Administration Blood Pressure Methylprednisolone Sodium Succinate 40 mg 03/21/21 06:00 03/21/21 14:15 Methylprednisolone Sod Succinate 40 Mg/1 Ml Inj IV 03/24/21 05:59 40 mg Q8HR BLANCA Administration Metoprolol Tartrate 12.5 mg 03/21/21 22:00 Metoprolol Tartrate 25 Mg Tab PO BID [facility] Midazolam HCl 2 mg 03/15/21 08:49 03/21/21 16:24 Midazolam 2 Mg/2 Ml Inj IV 2 mg Q2H PRN Administration VENT SYNCHRONY Multi-Ingred Cream/Lotion/Oil/Oint 1 applic 03/10/21 15:39 Mineral Oil/Petrolatum, White Ophth Oint 3.5 Gm OU Q4HR PRN Dry Eye(s) Ondansetron HCl 4 mg 03/09/21 01:26 Ondansetron 4 Mg/2 Ml Inj IV Q8H PRN Nausea And Vomiting Quetiapine Fumarate 300 mg 03/21/21 22:00 Quetiapine 100 Mg Tab PO BID [facility] Senna/Docusate Sodium 1 tab 03/10/21 22:00 03/21/21 10:03 Sennosides/Docusate Sodium 8.6/50 Mg Tab FEEDTUBE 1 tab BID BLANCA Administration Sodium Chloride 10 ml 03/09/21 10:00 03/21/21 10:05 Sodium Chloride 0.9% 10 Ml Flush Syringe IV 10 ml BID BLANCA Administration Sodium Chloride 10 ml 03/09/21 01:26 Sodium Chloride 0.9% 10 Ml Flush Syringe IV PRN PRN LINE FLUSH Sodium Chloride 10 ml 03/20/21 09:48 Sodium Chloride 0.9% 50 Ml Ivpb IV PRN PRN FLUSH Trimethoprim/Sulfamethoxazole 1 each 03/20/21 16:00 03/21/21 10:03 Sulfamethoxazole/Trimethoprim 800/160mg Ds Tab PO 1 each Q12HR BLANCA Administration Protocol Zinc Sulfate 220 mg 03/10/21 14:00 03/21/21 10:03 Zinc Sulfate 220 Mg Cap PO 220 mg BID BLANCA Administration Nutrition/Malnutrition Assess - Dietary Evaluation Nutrition/Malnutrition Findings: Nutrition Notes Start: 03/09/21 08:49 Freq: Status: Active Protocol: Document 03/20/21 16:21 BRYANNA (Rec: 03/20/21 16:53 BRYANNA [id number]) Nutrition Notes Current Diagnosis Diabetes,Sepsis,Hypertension, Respiratory Failure Other Pertinent Diagnosis COVID-19, Bilateral Pneumonia. Current Diet TF-Glucerna 1.2 Tyson at 40 ml/ hr (since D 03/17). Labs/Tests 03/20: Na 146, K 5.5, Cl 111.1 , BUN 34, Crea 0.7, Glu 145, Mg 2.5. Pertinent Medications 03/20: Vit C, Insulin, ZnSO4, Propofol @ 35.07 ml/hr ( 926Kcal), others nutritionally unremarkable. Height 5 ft 11 in Weight 120 kg [place] Body Weight (kg) 78.18 BMI 36.8 Weight change and time frame 3.0 Kg body weight gain in 3 days reported. Weight Status Obese Subjective/Other Information RD consult for routine F/U on TF tolerance. Pt remains on mechanical ventilation, according to [facility] notes. TF continues as prescribed. Pt continues with low-grade fever. Percent of energy/protein needs met: Prescribed Glucerna 1.2 Tyson @ 40 ml/hr provides for energy/ protein needs (1,152 Kcal/58 g ) during LOS, additionally, Propofol contributes with 926 Kcal, 87% Kcal; 46% AA. #1 Nutrition Diagnosis Inadequate oral intake Diagnosis Progress(for reassessment Continues documentation) Nutrition Intervention Nutrition Support: Continue Glucerna 1.2 @ 40 ml/ hr. Flush: 200ml water Q 4 hr ( until hypernatremia resolved). Kcal 1,152 Protein (gm) 58 Carbohydrates (gm) 110 Fat (gm) 58 Fluid (mL) 773 Fiber (gm) 15 % RDI: 48% Kcal; 46% AA. Goal #1 Provide at least 75% of energy /protein needs through Enteral Feeding during LOS. Follow-Up By: 03/27/21 Additional Comments Continue monitoring TF tolerance and BM. <RAFAEL DOMINGUEZ - Last Filed: 04/03/21 18:54> Assessment and Plan Assessment and plan: I saw and evaluated the patient. Discussed with the nurse practitioner and agree with their findings and plan as documented in this note. Hospitalist Physical - Constitutional Vitals: Temp Pulse Resp BP Pulse Ox 99.1 F 107 H 25 H 127/62 95 04/03/21 16:42 04/03/21 18:15 04/03/21 18:15 04/03/21 18:15 04/03/21 18:15 Results - Labs CBC & Chem 7: 04/03/21 04:14 04/03/21 04:14 Labs: Laboratory Last Values WBC 8.8 K/mm3 (4.5-11.0) 04/03/21 04:14 RBC 3.62 M/mm3 (3.65-5.03) L 04/03/21 04:14 Hgb 11.0 gm/dl (11.8-15.2) L 04/03/21 04:14 Hct 34.0 % (35.5-45.6) L 04/03/21 04:14 MCV 94 fl (84-94) 04/03/21 04:14 MCH 30 pg (28-32) 04/03/21 04:14 MCHC 32 % (32-34) 04/03/21 04:14 RDW 16.3 % (13.2-15.2) H 04/03/21 04:14 Plt Count 280 K/mm3 (140-440) 04/03/21 04:14 Lymph % (Auto) 7.6 % (13.4-35.0) L 03/31/21 13:30 Mcclain % (Auto) 9.5 % (0.0-7.3) H 03/31/21 13:30 Eos % (Auto) 4.1 % (0.0-4.3) 03/31/21 13:30 Baso % (Auto) 0.5 % (0.0-1.8) 03/31/21 13:30 Lymph # (Auto) 0.6 K/mm3 (1.2-5.4) L 03/31/21 13:30 Mcclain # (Auto) 0.7 K/mm3 (0.0-0.8) 03/31/21 13:30 Eos # (Auto) 0.3 K/mm3 (0.0-0.4) 03/31/21 13:30 Baso # (Auto) 0.0 K/mm3 (0.0-0.1) 03/31/21 13:30 Add Manual Diff Complete 03/10/21 04:29 Total Counted 100 03/10/21 04:29 Seg Neutrophils % 78.3 % (40.0-70.0) H 03/31/21 13:30 Seg Neuts % (Manual) 94.0 % (40.0-70.0) H 03/10/21 04:29 Band Neutrophils % 0 % 03/10/21 04:29 Lymphocytes % (Manual) 1.0 % (13.4-35.0) L 03/10/21 04:29 Reactive Lymphs % (Man) 0 % 03/10/21 04:29 Monocytes % (Manual) 5.0 % (0.0-7.3) 03/10/21 04:29 Eosinophils % (Manual) 0 % (0.0-4.3) 03/10/21 04:29 Basophils % (Manual) 0 % (0.0-1.8) 03/10/21 04:29 Metamyelocytes % 0 % 03/10/21 04:29 Myelocytes % 0 % 03/10/21 04:29 Promyelocytes % 0 % 03/10/21 04:29 Blast Cells % 0 % 03/10/21 04:29 Nucleated RBC % 3.0 % (0.0-0.9) H 03/10/21 04:29 Seg Neutrophils # 5.8 K/mm3 (1.8-7.7) 03/31/21 13:30 Seg Neutrophils # Man 19.4 K/mm3 (1.8-7.7) H 03/10/21 04:29 Band Neutrophils # 0.0 K/mm3 03/10/21 04:29 Lymphocytes # (Manual) 0.2 K/mm3 (1.2-5.4) L 03/10/21 04:29 Abs React Lymphs (Man) 0.0 K/mm3 03/10/21 04:29 Monocytes # (Manual) 1.0 K/mm3 (0.0-0.8) H 03/10/21 04:29 Eosinophils # (Manual) 0.0 K/mm3 (0.0-0.4) 03/10/21 04:29 Basophils # (Manual) 0.0 K/mm3 (0.0-0.1) 03/10/21 04:29 Metamyelocytes # 0.0 K/mm3 03/10/21 04:29 Myelocytes # 0.0 K/mm3 03/10/21 04:29 Promyelocytes # 0.0 K/mm3 03/10/21 04:29 Blast Cells # 0.0 K/mm3 03/10/21 04:29 WBC Morphology Not Reportable 03/10/21 04:29 Hypersegmented Neuts Not Reportable 03/10/21 04:29 Hyposegmented Neuts Not Reportable 03/10/21 04:29 Hypogranular Neuts Not Reportable 03/10/21 04:29 Smudge Cells Not Reportable 03/10/21 04:29 Toxic Granulation Not Reportable 03/10/21 04:29 Toxic Vacuolation Not Reportable 03/10/21 04:29 Dohle Bodies Not Reportable 03/10/21 04:29 Pelger-Huet Anomaly Not Reportable 03/10/21 04:29 Mely Rods Not Reportable 03/10/21 04:29 Platelet Estimate Consistent w auto 03/10/21 04:29 Clumped Platelets Not Reportable 03/10/21 04:29 Plt Clumps, EDTA Not Reportable 03/10/21 04:29 Large Platelets Not Reportable 03/10/21 04:29 Giant Platelets Not Reportable 03/10/21 04:29 Platelet Satelliting Not Reportable 03/10/21 04:29 Plt Morphology Comment Not Reportable 03/10/21 04:29 RBC Morphology Normal 03/10/21 04:29 Dimorphic RBCs Not Reportable 03/10/21 04:29 Polychromasia Not Reportable 03/10/21 04:29 Hypochromasia Not Reportable 03/10/21 04:29 Poikilocytosis Not Reportable 03/10/21 04:29 Anisocytosis Not Reportable 03/10/21 04:29 Microcytosis Not Reportable 03/10/21 04:29 Macrocytosis Not Reportable 03/10/21 04:29 Spherocytes Not Reportable 03/10/21 04:29 Pappenheimer Bodies Not Reportable 03/10/21 04:29 Sickle Cells Not Reportable 03/10/21 04:29 Target Cells Not Reportable 03/10/21 04:29 Tear Drop Cells Not Reportable 03/10/21 04:29 Ovalocytes Not Reportable 03/10/21 04:29 Helmet Cells Not Reportable 03/10/21 04:29 Longo-[place]wick Bodies Not Reportable 03/10/21 04:29 Mobile Rings Not Reportable 03/10/21 04:29 Shama Cells Not Reportable 03/10/21 04:29 Bite Cells Not Reportable 03/10/21 04:29 Crenated Cell Not Reportable 03/10/21 04:29 Elliptocytes Not Reportable 03/10/21 04:29 Acanthocytes (Spur) Not Reportable 03/10/21 04:29 Rouleaux Not Reportable 03/10/21 04:29 Hemoglobin C Crystals Not Reportable 03/10/21 04:29 Schistocytes Not Reportable 03/10/21 04:29 Malaria parasites Not Reportable 03/10/21 04:29 Shaheen Bodies Not Reportable 03/10/21 04:29 Hem Pathologist Commnt No 03/10/21 04:29 PT 13.0 Sec. (12.2-14.9) 03/29/21 04:50 INR 0.88 (0.87-1.13) 03/29/21 04:50 APTT 28.0 Sec. (24.2-36.6) 03/08/21 20:24 D-Dimer 1359.12 ng/mlDDU (0-234) H 03/17/21 04:40 ABG pH 7.397 pH Units (7.350-7.450) 03/31/21 12:50 POC ABG pCO2 71.9 mmHg (32.0-48.0) H 03/12/21 21:54 ABG pCO2 58.1 mm Hg 03/31/21 12:50 POC ABG pO2 53.6 mmHg (83-108) L 03/12/21 21:54 ABG pO2 99.4 mm Hg (80.0-90.0) H 03/31/21 12:50 POC ABG HCO3 30.0 03/12/21 21:54 ABG HCO3 34.9 mmol/L (20.0-26.0) H 03/31/21 12:50 ABG O2 Saturation 97.3 % (95.0-99.0) 03/31/21 12:50 ABG O2 Content 15.9 (0.0-44) 03/31/21 12:50 POC ABG Base Excess 0.5 03/12/21 21:54 ABG Base Excess 8.4 mmol/L (-2.0-3.0) H 03/31/21 12:50 ABG Hemoglobin 11.8 gm/dl (14.0-18.0) L 03/31/21 12:50 ABG Oxyhemoglobin 84.8 (94-98) L 03/12/21 21:54 ABG Carboxyhemoglobin 1.6 % (0.0-5.0) 03/31/21 12:50 ABG Methemoglobin 0.7 % (0.0-1.5) 03/31/21 12:50 ABG Sodium 134.2 mmol/L (136.0-145.0) L 03/12/21 21:54 ABG Potassium 4.9 mmol/L (3.40-4.50) H 03/12/21 21:54 ABG Chloride 99.0 mmol/L (98-107) 03/12/21 21:54 ABG Glucose 306 mg/dL (65-95) H 03/12/21 21:54 Oxyhemoglobin 95.1 % (95.0-99.0) 03/31/21 12:50 Carboxyhemoglobin 0.6 (0.5-1.5) 03/12/21 21:54 FiO2 40 % 03/31/21 12:50 FiO2 % 50.0 03/12/21 21:54 Sodium 139 mmol/L (137-145) 04/03/21 04:14 Potassium 4.6 mmol/L (3.6-5.0) 04/03/21 04:14 Chloride 99.4 mmol/L (98-107) 04/03/21 04:14 Carbon Dioxide 31 mmol/L (22-30) H 04/03/21 04:14 Anion Gap 13 mmol/L 04/03/21 04:14 BUN 16 mg/dL (9-20) 04/03/21 04:14 Creatinine 0.6 mg/dL (0.8-1.3) L 04/03/21 04:14 Estimated GFR > 60 ml/min 04/03/21 04:14 BUN/Creatinine Ratio 27 % 04/03/21 04:14 Glucose 155 mg/dL (75-100) H 04/03/21 04:14 POC Glucose 180 mg/dL (70-105) H 04/03/21 16:19 Lactic Acid 1.90 mmol/L (0.7-2.0) 03/08/21 23:51 Calcium 8.6 mg/dL (8.4-10.2) 04/03/21 04:14 Phosphorus 3.40 mg/dL (2.5-4.5) 04/02/21 04:26 Magnesium 2.10 mg/dL (1.7-2.3) 04/02/21 04:26 Ferritin 976.4 ng/mL (30.0-300.0) H 03/15/21 04:00 Total Bilirubin 0.20 mg/dL (0.1-1.2) 03/12/21 08:03 AST 10 units/L (5-40) 03/12/21 08:03 ALT 16 units/L (7-56) 03/12/21 08:03 Alkaline Phosphatase 77 units/L (35-129) 03/12/21 08:03 Lactate Dehydrogenase 630 units/L (91-180) H 03/15/21 06:06 C-Reactive Protein 0.40 mg/dL (0.00-1.30) 03/17/21 04:40 NT-Pro-B Natriuret Pep 1053 pg/mL (0-900) H 03/08/21 20:24 Total Protein 6.0 g/dL (6.3-8.2) L 03/12/21 08:03 Albumin 2.9 g/dL (3.9-5) L 03/12/21 08:03 Albumin/Globulin Ratio 0.9 % 03/12/21 08:03 Triglycerides 305 mg/dL (2-149) H 03/22/21 07:26 Procalcitonin 0.17 ng/mL (<0.15) 04/01/21 07:16 Arterial Blood Glucose 306 mg/dL (65-95) H 03/12/21 21:54 Arterial Blood Ionized Calcium 5.0 mg/dL (4.6-5.3) 03/12/21 21:54 Urine Color Yellow (Yellow) 03/09/21 04:10 Urine Turbidity Slightly-cloudy (Clear) 03/09/21 04:10 Urine pH 5.0 (5.0-7.0) 03/09/21 04:10 Ur Specific Worth 1.041 (1.003-1.030) H 03/09/21 04:10 Urine Protein 100 mg/dl mg/dL (Negative) 03/09/21 04:10 Urine Glucose (UA) Neg mg/dL (Negative) 03/09/21 04:10 Urine Ketones Neg mg/dL (Negative) 03/09/21 04:10 Urine Blood Mod (Negative) 03/09/21 04:10 Urine Nitrite Neg (Negative) 03/09/21 04:10 Urine Bilirubin Neg (Negative) 03/09/21 04:10 Urine Urobilinogen 2.0 mg/dL (<2.0) 03/09/21 04:10 Ur Leukocyte Esterase Neg (Negative) 03/09/21 04:10 Urine WBC (Auto) 4.0 /HPF (0.0-6.0) 03/09/21 04:10 Urine RBC (Auto) 1.0 /HPF (0.0-6.0) 03/09/21 04:10 Urine Bacteria (Auto) 1+ /HPF (Negative) 03/09/21 04:10 Urine Mucus Few /HPF 03/09/21 04:10 Coronavirus (PCR) Positive (Negative) A 03/09/21 08:00 Miscellaneous Test Flexitest 1 03/16/21 13:14 Microbiology: Microbiology 03/31/21 13:30 Peripheral/Venous Blood Culture - Preliminary NO GROWTH AFTER 72 HOURS 03/31/21 14:00 Peripheral/Venous Blood Culture - Preliminary NO GROWTH AFTER 72 HOURS 03/31/21 15:55 Tracheal Aspirate Sputum Culture - Final Good/IV: Voiding Method Indwelling Catheter Active Medications - Current Medications Current Medications: Generic Name Dose Route Start Last Admin Trade Name Freq PRN Reason Stop Dose Admin Acetaminophen 650 mg 03/09/21 01:26 04/03/21 05:19 Acetaminophen 325 Mg Tab PO 650 mg Q4H PRN Administration Pain MILD(1-3)/Fever >100.5/RAYO Albuterol 2.5 mg 03/09/21 01:26 03/18/21 21:06 Albuterol 2.5 Mg/3 Ml Nebu IH 2.5 mg Q4HRT PRN Administration Shortness Of Breath Amlodipine Besylate 5 mg 03/30/21 10:00 04/03/21 10:01 Amlodipine 5 Mg Tab PO 5 mg QDAY BLANCA Administration Arformoterol Tartrate 15 mcg 03/11/21 20:00 04/03/21 08:16 Arformoterol 15 Mcg/2 Ml Nebu IH 15 mcg Q12HRT BLANCA Administration Ascorbic Acid 500 mg 03/10/21 14:00 04/03/21 10:00 Ascorbic Acid 500 Mg Tab PO 500 mg BID BLANCA Administration Bisacodyl 10 mg 03/26/21 13:43 03/26/21 13:51 Bisacodyl 10 Mg Rect Supp [place] 10 mg QDAY PRN Administration Constipation Budesonide 0.25 mg 03/11/21 20:00 04/03/21 08:16 Budesonide 0.25 Mg/2 Ml Nebu IH 0.25 mg Q12HRT BLANCA Administration Chlordiazepoxide HCl 75 mg 03/22/21 18:00 04/03/21 18:03 Chlordiazepoxide 25 Mg Cap PO 75 mg Q6HR BLANCA Administration Dextrose 0 ml 03/20/21 10:52 Dextrose 10% *Hypoglycemia IV PRN PRN Hypoglycemia Doxazosin Mesylate 1 mg 03/23/21 14:00 04/03/21 10:14 Doxazosin 1 Mg Tab PO 1 mg QDAY BLANCA Administration Enoxaparin Sodium 30 mg 04/01/21 10:00 04/03/21 09:58 Enoxaparin 30 Mg/0.3 Ml Inj SUB-Q 30 mg Q12HR BLANCA Administration Famotidine 20 mg 03/12/21 22:00 04/03/21 09:59 Famotidine 20 Mg Tab FEEDTUBE 20 mg BID BLANCA Administration Fentanyl 1 applic 03/31/21 15:00 04/03/21 10:36 Fentanyl 75 Mcg/Hr Patch 72hr TD 1 applic Q3D BLANCA Administration Fentanyl 50 mcg 03/31/21 14:41 04/01/21 08:38 Fentanyl 100 Mcg/2 Ml Inj IV 50 mcg Q2H PRN Administration ANALGESIA Furosemide 20 mg 03/30/21 18:00 04/03/21 10:02 Furosemide 20 Mg/2 Ml Inj IV 04/04/21 17:59 20 mg QDAY BLANCA Administration Hydralazine HCl 50 mg 03/23/21 14:26 04/03/21 13:36 Hydralazine 25 Mg Tab PO 50 mg Q8HR [facility] Administration Hydrophilic Ointment 1 applic 03/10/21 15:39 Lip Therapy Vaseline TP Q2HR PRN Dry Lips Fentanyl Citrate 2,000 mcg in 100 mls @ 5.897 mls/hr 03/10/21 17:00 04/03/21 13:36 Fentanyl Drip Premix IV 1 mcg/kg/hr TITR BLANCA 5.897 mls/hr Administration Protocol 1 MCG/KG/HR Propofol 1,000 mg in 100 mls @ 3.507 mls/hr 03/11/21 17:00 03/22/21 18:02 Diprivan 10 Mg/Ml IV 0 mcg/kg/min TITR BLANCA 0 mls/hr Titration Protocol 5 MCG/KG/MIN Insulin Glargine 15 units 03/29/21 22:00 04/02/21 21:11 Insulin Glargine 100 Units/Ml SUB-Q 15 units QHS BLANCA Administration Insulin Human Lispro 0 unit 03/11/21 18:00 04/03/21 18:03 Insulin Lispro 100 Unit/Ml SUB-Q 3 unit Q6HR BLANCA Administration Protocol Labetalol HCl 10 mg 03/12/21 21:13 03/21/21 16:54 Labetalol 20 Mg/4 Ml Inj IV 10 mg Q6H PRN Administration Blood Pressure Metoprolol Tartrate 12.5 mg 03/21/21 22:00 04/03/21 10:00 Metoprolol Tartrate 25 Mg Tab PO 12.5 mg BID BLANCA Administration Midazolam HCl 2 mg 03/15/21 08:49 03/31/21 21:33 Midazolam 2 Mg/2 Ml Inj IV 2 mg Q2H PRN Administration VENT SYNCHRONY Multi-Ingred Cream/Lotion/Oil/Oint 1 applic 03/10/21 15:39 Mineral Oil/Petrolatum, White Ophth Oint 3.5 Gm OU Q4HR PRN Dry Eye(s) Ondansetron HCl 4 mg 03/09/21 01:26 Ondansetron 4 Mg/2 Ml Inj IV Q8H PRN Nausea And Vomiting Oxycodone HCl 5 mg 03/30/21 12:14 03/31/21 07:45 Oxycodone 5 Mg Tab PO 5 mg Q6H PRN Administration Pain, Moderate (4-6) Phenyleph/Shark Oil/Min Oil/Petrol 1 applic 03/22/21 17:35 03/31/21 18:20 Pe/Mo/Pet,Wh 10 Applic/28 Gm Tube [place] 1 applic Q6HR PRN Administration Hemorrhoids Polyethylene Glycol 17 gm 04/02/21 10:00 04/03/21 09:59 Polyethylene Glycol 3350 17 Gm Powder FEEDTUBE 17 gm QDAY BLANCA Administration Prednisone 10 mg 03/29/21 10:00 04/03/21 09:59 Prednisone 10 Mg Tab PO 10 mg DAILY BLANCA Administration Quetiapine Fumarate 300 mg 03/21/21 22:00 04/03/21 09:59 Quetiapine 100 Mg Tab PO 300 mg BID BLANCA Administration Senna/Docusate Sodium 2 tab 04/02/21 10:00 04/03/21 09:59 Sennosides/Docusate Sodium 8.6/50 Mg Tab FEEDTUBE 2 tab BID BLANCA Administration Sodium Chloride 10 ml 03/09/21 10:00 04/03/21 10:35 Sodium Chloride 0.9% 10 Ml Flush Syringe IV 10 ml BID BLANCA Administration Sodium Chloride 10 ml 03/09/21 01:26 04/02/21 21:13 Sodium Chloride 0.9% 10 Ml Flush Syringe IV 10 ml PRN PRN Administration LINE FLUSH Sodium Chloride 10 ml 03/20/21 09:48 Sodium Chloride 0.9% 50 Ml Ivpb IV PRN PRN FLUSH Zinc Sulfate 220 mg 03/10/21 14:00 04/03/21 09:58 Zinc Sulfate 220 Mg Cap PO 220 mg BID BLANCA Administration Nutrition/Malnutrition Assess - Dietary Evaluation Nutrition/Malnutrition Findings: Nutrition Notes Start: 03/09/21 08:49 Freq: Status: Active Protocol: Document 03/31/21 14:51 BRIAN (Rec: 03/31/21 14:52 BRIAN [id number]) Nutrition Notes Initial or Follow up Reassessment Current Diagnosis Diabetes,Sepsis,Hypertension, Respiratory Failure Other Pertinent Diagnosis COVID-19, Bilateral Pneumonia. Current Diet TF-Glucerna 1.2 at 70 ml/hr Labs/Tests Na 140 yesterday Pertinent Medications Lasix, Reglan, Prednisone Height 5 ft 11 in Weight 122 kg [place] Body Weight (kg) 78.18 BMI 37.5 Weight Status Obese Subjective/Other Information Pt remains on vent support. Trach and PEG placed on /. Per RN, pt tolerating TF at goal rate. Percent of energy/protein needs met: 82% energy 78% pro Burn Absent Trauma Absent #1 Nutrition Diagnosis Inadequate oral intake Diagnosis Progress(for reassessment Continues documentation) Is patient on ventilator? Yes Is Patient Ambulatory and/or Out of Bed No REE-([facility]-confined to bed) 4939.140 Calculation Used for Recommendations 70-80% energy needs Additional Notes Energy needs: 4159-4973 kcal/ day Pro needs 1.3g/kg adjBW: 130g/ day Fluid needs 1ml/kcal Nutrition Intervention Nutrition Support: Continue Glucerna 1.2 at 70ml/ hr with 110ml water flush q4h. Kcal 2,016 Protein (gm) 101 Carbohydrates (gm) 192 Fat (gm) 101 Fluid (mL) 1,352 Fiber (gm) 27 Goal #1 TF tolerance Goal #2 TF to meet at least 75% energy and pro needs Follow-Up By: 04/07/21 Additional Comments F/U: stable TF, vent status, wt
--- NOTE | 2021-03-21 20:15 | XRay Report ---
ABDOMEN 1 VIEW(S) INDICATION / CLINICAL INFORMATION: Constipation. COMPARISON: None available. FINDINGS: TUBES / LINES: NG tube tip projects over the body the stomach. BOWEL GAS PATTERN/EXTRALUMINAL GAS: No acute abnormality. No pneumatosis or secondary signs of free a ir. Moderate constipation. ADDITIONAL FINDINGS: No significant additional findings. IMPRESSION: 1. No acute findings. Moderate constipation. Signer Name: Phani Lara MD Signed: 03/21/2021 8:11 PM Workstation Name: [id number]
[2021-03-21] MEDS: METOPROLOL TARTRATE 25 MG TAB PO SCH (22:33)
[2021-03-22] MEDS: fentaNYL DRIP Premix 2,000 MCG/100 ML BAG IV SCH ×6 (00:19→22:58)
[2021-03-22] MEDS: INSULIN LISPRO 100 UNIT/ML SUB-Q SCH ×4 (00:51→18:05)
[2021-03-22] MEDS: methylPREDNISolone Sod Succinate 40 MG/1 ML INJ IV SCH ×3 (06:38→21:17)
[2021-03-22] MEDS: hydrALAZINE 25 MG TAB PO SCH ×3 (06:39→21:18)
[2021-03-22 09:17] LABS: Hematocrit 38.9 % (35.5-45.6); Hemoglobin 12.2 gm/dl (11.8-15.2); Mean Corpuscular HGB Conc 31 % (32-34); Mean Corpuscular Volume 94 fl (84-94); Platelet Count 218 K/mm3 (140-440); Red Blood Count 4.14 M/mm3 (3.65-5.03); Red Cell Distribution Width 16.1 % (13.2-15.2)
[2021-03-22] MEDS: BUDESONIDE 0.25 MG/2 ML NEBU IH SCH ×2 (09:33→19:41)
[2021-03-22 09:34] LABS: BUN/Creatinine Ratio 40; Blood Urea Nitrogen 44 mg/dL (9-20); Calcium 8.6 mg/dL (8.4-10.2); Hemolysis Index 6
[2021-03-22] MEDS: ARFORMOTEROL 15 MCG/2 ML NEBU IH SCH ×2 (09:34→19:41)
[2021-03-22] MEDS: chlordiazePOXIDE 25 MG CAP PO SCH ×3 (09:45→18:49)
[2021-03-22 10:14] LABS: ABG Base Excess 3.6 mmol/L (-2.0-3.0); ABG Methemoglobin 0.7 % (0.0-1.5); ABG Oxygen Saturation 94.6 % (95.0-99.0); ABG PCO2 52.7 mm Hg; ABG PH 7.373 pH Units (7.350-7.450)
[2021-03-22] MEDS: SULFAMETHOXAZOLE/TRIMETHOPRIM 800/160MG DS TAB PO SCH ×2 (10:27→21:17)
[2021-03-22] MEDS: ZINC SULFATE 220 MG CAP PO SCH ×2 (10:27→21:17)
[2021-03-22] MEDS: SENNOSIDES/DOCUSATE SODIUM 8.6/50 MG TAB FEEDTUBE SCH ×2 (10:28→21:17)
[2021-03-22] MEDS: QUEtiapine 100 MG TAB PO SCH ×2 (10:28→21:18)
[2021-03-22] MEDS: FAMOTIDINE 20 MG TAB FEEDTUBE SCH ×2 (10:28→21:17)
[2021-03-22] MEDS: METOPROLOL TARTRATE 25 MG TAB PO SCH ×2 (10:28→21:19)
[2021-03-22] MEDS: ASCORBIC ACID 500 MG TAB PO SCH ×2 (10:28→21:17)
[2021-03-22] MEDS: INSULIN GLARGINE 100 UNITS/ML SUB-Q SCH ×2 (10:29→21:20)
[2021-03-22] MEDS: ENOXAPARIN 120 MG/0.8 ML INJ SUB-Q SCH ×2 (10:29→21:19)
--- NOTE | 2021-03-22 11:58 | Progress Note ---
Assessment and Plan Acute hypoxemic respiratory failure, on continuous noninvasive ventilation COVID-19 infection Bilateral pneumonia History of diabetes Obesity Hypertension Leukocytosis Possible venous thromboembolic phenomena with significantly elevated D-dimers DM II Elevated serum inflammatory markers to include CRP levels, ferritin and LDH - ETT day # 13; he may be headed for a tracheostomy - reduced set rate to 12/min - RN asked to hold Propofol - begin SBT as tolerated if agitation controlled - up-titrate anxiolytics / oral sedatives as tolerated - continue Librium 50mg po q8h X 4 more days - continue Seroquel at 300 mg po bid - continue care as below otherwise; - continue Daily SAT and SBT assessment as tolerated - continue to wean supplemental oxygen for target O2 sat's > 90% acutely - VAP bundle addressed - continue lung protective strategies - continue bronchodilators with pulmonary hygiene per RT - wean per pulmonary driven protocols otherwise - continue accuchecks with glycemic control per SSI (While critically ill target blood glucose of 140-180 mg/dL; avoid hypoglycemia) - sedation prn for target RASS 0 to -1 - avoid nephrotoxins, renally dose all medications - avoid benzodiazepine's, reduce the possibility of delirium - AB's per ID rec's - prn analgesia per pain score - Maintenance of sleep-wake cycle, avoid delirium - G.I. & VTE prophylaxis - PT/OT/ROM exercises - mobility protocols for pressure ulcer prophylaxis - Monitor hemodynamics closely - continue other care per attending / other consultants - discharge planning ongoing concurrently COVID SPECIFIC INTERVENTIONS - Remdesivir as per ID/Pulmonary developed protocols (received) - continue systemic steroids for severe COVID-19 infection empirically (Decadron) - follow repeat COVID tests results - zinc and vitamin C supplementation - Monitor inflammatory markers per facility protocol - ferritin, Ddimer, CRP - therapeutic anticoagulation per system Protocol based on d-dimer and clinical considerations (treatment dose) - Continue contact and airborne isolation .... Re-evaluate in am & prn CONDITION: CRITICAL PROGNOSIS: GUARDED CODE STATUS: FULL CODE The high probability of a clinically significant, sudden or life-threatening deterioration of the [respiratory, cardiovascular & hematologic] system(s) required my full and direct attention, intervention and personal management. The aggregate critical care time was [35] minutes without overlap. Time includes spent on; [x] Data Review and interpretation [x] Patient assessment and monitoring of vital signs [x] Documentation [x] Medication orders and management Subjective Date of service: 03/22/21 Principal diagnosis: COVID-19 infection; DM II; Bilateral pneumonia; Obesity; HTN Interval history: Patient is seen today for: Acute hypoxemic respiratory failure; COVID-19 infection; DM II; Bilateral pneumonia; Obesity; HTN Seen and examined at bedside; 24hour events reviewed; nursing and respiratory care staff consulted; no adverse overnight events reported to me; resting in bed; remains on MVS; oxygenation a little improved and FiO2 dropped to 40%; remains on Propofol @ 30 myles's/kg/min; weaning systemic steroids from today Objective Vital Signs - 12hr 03/22/21 03/22/21 03/22/21 00:00 00:15 00:30 Temperature 98.9 F Pulse Rate 98 H 97 H 96 H Pulse Rate [ Bilateral Throughout] Pulse Rate [ 122 H From Monitor] Respiratory 14 14 13 Rate Respiratory Rate [Bilateral Throughout] Blood Pressure 117/68 116/69 120/68 O2 Sat by Pulse 86 89 Oximetry 03/22/21 03/22/21 03/22/21 00:45 01:00 01:15 Temperature Pulse Rate 97 H 97 H 97 H Pulse Rate [ Bilateral Throughout] Pulse Rate [ From Monitor] Respiratory 15 15 17 Rate Respiratory Rate [Bilateral Throughout] Blood Pressure 108/67 118/69 126/71 O2 Sat by Pulse 87 89 Oximetry 03/22/21 03/22/21 03/22/21 01:30 01:45 02:00 Temperature Pulse Rate 98 H 98 H 98 H Pulse Rate [ Bilateral Throughout] Pulse Rate [ From Monitor] Respiratory 16 20 15 Rate Respiratory Rate [Bilateral Throughout] Blood Pressure 127/70 124/75 127/71 O2 Sat by Pulse 85 90 87 Oximetry 03/22/21 03/22/21 03/22/21 02:15 02:30 02:45 Temperature Pulse Rate 99 H 99 H 99 H Pulse Rate [ Bilateral Throughout] Pulse Rate [ From Monitor] Respiratory 16 16 16 Rate Respiratory Rate [Bilateral Throughout] Blood Pressure 115/64 116/63 113/57 O2 Sat by Pulse 86 88 Oximetry 03/22/21 03/22/21 03/22/21 03:00 03:15 03:30 Temperature Pulse Rate 100 H 99 H 100 H Pulse Rate [ Bilateral Throughout] Pulse Rate [ From Monitor] Respiratory 19 14 15 Rate Respiratory Rate [Bilateral Throughout] Blood Pressure 102/59 108/56 102/57 O2 Sat by Pulse 89 91 Oximetry 03/22/21 03/22/21 03/22/21 03:45 04:00 04:15 Temperature 98.5 F Pulse Rate 100 H 100 H 100 H Pulse Rate [ Bilateral Throughout] Pulse Rate [ 122 H From Monitor] Respiratory 18 16 18 Rate Respiratory Rate [Bilateral Throughout] Blood Pressure 110/54 106/58 121/61 O2 Sat by Pulse 91 93 Oximetry 03/22/21 03/22/21 03/22/21 04:30 04:45 05:00 Temperature Pulse Rate 100 H 100 H 100 H Pulse Rate [ Bilateral Throughout] Pulse Rate [ From Monitor] Respiratory 17 19 12 Rate Respiratory Rate [Bilateral Throughout] Blood Pressure 111/62 117/62 110/55 O2 Sat by Pulse 85 88 86 Oximetry 03/22/21 03/22/21 03/22/21 05:15 05:30 05:45 Temperature Pulse Rate 100 H 100 H 100 H Pulse Rate [ Bilateral Throughout] Pulse Rate [ From Monitor] Respiratory 17 17 15 Rate Respiratory Rate [Bilateral Throughout] Blood Pressure 111/60 95/56 103/53 O2 Sat by Pulse 88 83 L 88 Oximetry 03/22/21 03/22/21 03/22/21 06:00 06:15 06:30 Temperature Pulse Rate 99 H 100 H 98 H Pulse Rate [ Bilateral Throughout] Pulse Rate [ From Monitor] Respiratory 11 L 17 12 Rate Respiratory Rate [Bilateral Throughout] Blood Pressure 94/59 93/57 104/61 O2 Sat by Pulse 86 85 91 Oximetry 03/22/21 03/22/21 03/22/21 06:39 06:45 07:00 Temperature Pulse Rate 97 H 97 H 98 H Pulse Rate [ Bilateral Throughout] Pulse Rate [ From Monitor] Respiratory 21 18 Rate Respiratory Rate [Bilateral Throughout] Blood Pressure 104/61 103/59 110/59 O2 Sat by Pulse 98 Oximetry 03/22/21 03/22/21 03/22/21 07:10 07:15 07:30 Temperature 99.2 F Pulse Rate 97 H 97 H Pulse Rate [ Bilateral Throughout] Pulse Rate [ From Monitor] Respiratory 16 21 Rate Respiratory Rate [Bilateral Throughout] Blood Pressure 104/58 104/53 O2 Sat by Pulse 88 Oximetry 03/22/21 03/22/21 03/22/21 07:45 08:00 08:15 Temperature Pulse Rate 96 H 95 H 96 H Pulse Rate [ Bilateral Throughout] Pulse Rate [ From Monitor] Respiratory 14 13 17 Rate Respiratory Rate [Bilateral Throughout] Blood Pressure 109/65 125/65 129/65 O2 Sat by Pulse 87 Oximetry 03/22/21 03/22/21 03/22/21 08:30 08:45 09:00 Temperature Pulse Rate 104 H 107 H 108 H Pulse Rate [ Bilateral Throughout] Pulse Rate [ From Monitor] Respiratory 18 23 24 Rate Respiratory Rate [Bilateral Throughout] Blood Pressure 129/65 173/89 175/93 O2 Sat by Pulse 94 94 95 Oximetry 03/22/21 03/22/21 03/22/21 09:15 09:25 09:30 Temperature Pulse Rate 109 H 109 H 109 H Pulse Rate [ Bilateral Throughout] Pulse Rate [ From Monitor] Respiratory 22 22 Rate Respiratory Rate [Bilateral Throughout] Blood Pressure 169/90 169/90 169/90 O2 Sat by Pulse 91 93 91 Oximetry 03/22/21 03/22/21 03/22/21 09:34 09:45 10:00 Temperature Pulse Rate 111 H 111 H Pulse Rate [ 110 H Bilateral Throughout] Pulse Rate [ From Monitor] Respiratory 16 19 Rate Respiratory 21 Rate [Bilateral Throughout] Blood Pressure 161/96 151/89 O2 Sat by Pulse 93 90 Oximetry 03/22/21 03/22/21 03/22/21 10:15 10:28 11:30 Temperature Pulse Rate 111 H 112 H 107 H Pulse Rate [ Bilateral Throughout] Pulse Rate [ From Monitor] Respiratory 19 Rate Respiratory Rate [Bilateral Throughout] Blood Pressure 165/81 165/81 114/63 O2 Sat by Pulse 89 95 Oximetry 03/22/21 11:33 Temperature 98.8 F Pulse Rate Pulse Rate [ Bilateral Throughout] Pulse Rate [ From Monitor] Respiratory Rate Respiratory Rate [Bilateral Throughout] Blood Pressure O2 Sat by Pulse Oximetry Constitutional: no acute distress (sedated), other (elderly obese male with mildly increased respiratory effort at rest on MVS) Eyes: non-icteric ENT: oropharynx moist, other (ETT 24 cm CHAITANYA) Neck: supple, no lymphadenopathy, no JVD, other (large circumference) Effort: normal Ascultation: Bilateral: diminished breath sounds, rhonchi Percussion: Bilateral: not dull Cardiovascular: regular rate and rhythm, other (tachycardia, S1,S2) Gastrointestinal: normoactive bowel sounds, soft, non-tender, non-distended (protuberant) Integumentary: normal Extremities: no cyanosis, pulses normal, no ischemia or petechiae, edema Neurologic: non-focal exam (grossly), pupils equal and round, unable to assess, other (sedated) Psychiatric: other (unable to assess re: AMS) CBC and BMP: 03/22/21 07:26 03/22/21 07:26 ABG, PT/INR, D-dimer: ABG ABG pH 7.373 pH Units (7.350-7.450) 03/22/21 09:38 POC ABG pCO2 71.9 mmHg (32.0-48.0) H 03/12/21 21:54 ABG pCO2 52.7 mm Hg 03/22/21 09:38 POC ABG pO2 53.6 mmHg (83-108) L 03/12/21 21:54 ABG pO2 70.0 mm Hg (80.0-90.0) L 03/22/21 09:38 POC ABG HCO3 30.0 03/12/21 21:54 ABG O2 Saturation 94.6 % (95.0-99.0) L 03/22/21 09:38 PT/INR, D-dimer PT 16.1 Sec. (12.2-14.9) H 03/08/21 20:24 INR 1.17 (0.87-1.13) H 03/08/21 20:24 D-Dimer 1359.12 ng/mlDDU (0-234) H 03/17/21 04:40 Abnormal lab findings: Abnormal Labs 03/08/21 03/08/21 03/08/21 20:24 20:24 20:24 WBC 22.6 H RBC 5.44 H Hgb 15.7 H Hct 49.2 H MCV MCHC RDW Lymph % (Auto) [place] % (Auto) [place] # (Auto) Seg Neutrophils % Seg Neuts % (Manual) 83.0 H Lymphocytes % (Manual) 9.0 L Monocytes % (Manual) 8.0 H Nucleated RBC % Seg Neutrophils # Seg Neutrophils # Man 18.8 H Lymphocytes # (Manual) Monocytes # (Manual) 1.8 H PT 16.1 H INR 1.17 H D-Dimer > 64045 H ABG pH POC ABG pCO2 POC ABG pO2 ABG pO2 ABG HCO3 ABG O2 Saturation ABG Base Excess ABG Hemoglobin ABG Oxyhemoglobin ABG Sodium ABG Potassium ABG Glucose Oxyhemoglobin Sodium 136 L Potassium Chloride 93.9 L Carbon Dioxide BUN 29 H Creatinine Glucose 208 H POC Glucose Lactic Acid Phosphorus Magnesium Ferritin Lactate Dehydrogenase 624 H C-Reactive Protein 18.00 H NT-Pro-B Natriuret Pep 1053 H Total Protein Albumin Triglycerides Arterial Blood Glucose Ur Specific [place] Coronavirus (PCR) 03/08/21 03/08/21 03/09/21 20:24 20:24 04:10 WBC RBC Hgb Hct MCV MCHC RDW Lymph % (Auto) [place] % (Auto) [place] # (Auto) Seg Neutrophils % Seg Neuts % (Manual) Lymphocytes % (Manual) Monocytes % (Manual) Nucleated RBC % Seg Neutrophils # Seg Neutrophils # Man Lymphocytes # (Manual) Monocytes # (Manual) PT INR D-Dimer ABG pH POC ABG pCO2 POC ABG pO2 ABG pO2 ABG HCO3 ABG O2 Saturation ABG Base Excess ABG Hemoglobin ABG Oxyhemoglobin ABG Sodium ABG Potassium ABG Glucose Oxyhemoglobin Sodium Potassium Chloride Carbon Dioxide BUN Creatinine Glucose POC Glucose Lactic Acid 2.10 H* Phosphorus Magnesium Ferritin 877.5 H Lactate Dehydrogenase C-Reactive Protein NT-Pro-B Natriuret Pep Total Protein Albumin Triglycerides Arterial Blood Glucose Ur Specific [place] 1.041 H Coronavirus (PCR) 03/09/21 03/09/21 03/09/21 07:46 08:00 13:01 WBC RBC Hgb Hct MCV MCHC RDW Lymph % (Auto) [place] % (Auto) [place] # (Auto) Seg Neutrophils % Seg Neuts % (Manual) Lymphocytes % (Manual) Monocytes % (Manual) Nucleated RBC % Seg Neutrophils # Seg Neutrophils # Man Lymphocytes # (Manual) Monocytes # (Manual) PT INR D-Dimer ABG pH POC ABG pCO2 POC ABG pO2 ABG pO2 ABG HCO3 ABG O2 Saturation ABG Base Excess ABG Hemoglobin ABG Oxyhemoglobin ABG Sodium ABG Potassium ABG Glucose Oxyhemoglobin Sodium Potassium Chloride Carbon Dioxide BUN Creatinine Glucose POC Glucose 191 H 182 H Lactic Acid Phosphorus Magnesium Ferritin Lactate Dehydrogenase C-Reactive Protein NT-Pro-B Natriuret Pep Total Protein Albumin Triglycerides Arterial Blood Glucose Ur Specific [place] Coronavirus (PCR) Positive A 03/09/21 03/09/21 03/09/21 15:19 17:48 18:10 WBC RBC Hgb Hct MCV MCHC RDW Lymph % (Auto) [place] % (Auto) [place] # (Auto) Seg Neutrophils % Seg Neuts % (Manual) Lymphocytes % (Manual) Monocytes % (Manual) Nucleated RBC % Seg Neutrophils # Seg Neutrophils # Man Lymphocytes # (Manual) Monocytes # (Manual) PT INR D-Dimer ABG pH POC ABG pCO2 POC ABG pO2 ABG pO2 47.3 L ABG HCO3 26.3 H ABG O2 Saturation 83.7 L ABG Base Excess ABG Hemoglobin ABG Oxyhemoglobin ABG Sodium ABG Potassium ABG Glucose Oxyhemoglobin 82.1 L Sodium Potassium Chloride Carbon Dioxide BUN 29 H Creatinine Glucose 214 H POC Glucose 194 H Lactic Acid Phosphorus Magnesium Ferritin Lactate Dehydrogenase C-Reactive Protein NT-Pro-B Natriuret Pep Total Protein Albumin 3.4 L Triglycerides Arterial Blood Glucose Ur Specific [place] Coronavirus (PCR) 03/09/21 03/10/21 03/10/21 20:40 04:29 04:29 WBC 20.6 H RBC 5.07 H Hgb Hct 46.2 H MCV MCHC RDW Lymph % (Auto) [place] % (Auto) [place] # (Auto) Seg Neutrophils % Seg Neuts % (Manual) 94.0 H Lymphocytes % (Manual) 1.0 L Monocytes % (Manual) Nucleated RBC % 3.0 H Seg Neutrophils # Seg Neutrophils # Man 19.4 H Lymphocytes # (Manual) 0.2 L Monocytes # (Manual) 1.0 H PT INR D-Dimer ABG pH POC ABG pCO2 POC ABG pO2 ABG pO2 ABG HCO3 ABG O2 Saturation ABG Base Excess ABG Hemoglobin ABG Oxyhemoglobin ABG Sodium ABG Potassium ABG Glucose Oxyhemoglobin Sodium Potassium Chloride Carbon Dioxide BUN 29 H Creatinine Glucose 188 H POC Glucose 176 H Lactic Acid Phosphorus Magnesium Ferritin Lactate Dehydrogenase C-Reactive Protein NT-Pro-B Natriuret Pep Total Protein Albumin 3.3 L Triglycerides Arterial Blood Glucose Ur Specific [place] Coronavirus (PCR) 03/10/21 03/10/21 03/10/21 05:22 10:27 15:25 WBC RBC Hgb Hct MCV MCHC RDW Lymph % (Auto) [place] % (Auto) [place] # (Auto) Seg Neutrophils % Seg Neuts % (Manual) Lymphocytes % (Manual) Monocytes % (Manual) Nucleated RBC % Seg Neutrophils # Seg Neutrophils # Man Lymphocytes # (Manual) Monocytes # (Manual) PT INR D-Dimer ABG pH 7.488 H 7.488 H POC ABG pCO2 POC ABG pO2 ABG pO2 47.7 L 50.5 L ABG HCO3 ABG O2 Saturation 86.2 L 87.9 L ABG Base Excess ABG Hemoglobin ABG Oxyhemoglobin ABG Sodium ABG Potassium ABG Glucose Oxyhemoglobin 84.6 L 86.2 L Sodium Potassium Chloride Carbon Dioxide BUN Creatinine Glucose POC Glucose 155 H Lactic Acid Phosphorus Magnesium Ferritin Lactate Dehydrogenase C-Reactive Protein NT-Pro-B Natriuret Pep Total Protein Albumin Triglycerides Arterial Blood Glucose Ur Specific [place] Coronavirus (PCR) 03/10/21 03/10/21 03/11/21 18:10 18:55 00:07 WBC RBC Hgb Hct MCV MCHC RDW Lymph % (Auto) [place] % (Auto) [place] # (Auto) Seg Neutrophils % Seg Neuts % (Manual) Lymphocytes % (Manual) Monocytes % (Manual) Nucleated RBC % Seg Neutrophils # Seg Neutrophils # Man Lymphocytes # (Manual) Monocytes # (Manual) PT INR D-Dimer ABG pH 7.343 L POC ABG pCO2 POC ABG pO2 ABG pO2 60.4 L ABG HCO3 27.9 H ABG O2 Saturation 88.7 L ABG Base Excess ABG Hemoglobin ABG Oxyhemoglobin ABG Sodium ABG Potassium ABG Glucose Oxyhemoglobin 86.9 L Sodium Potassium Chloride Carbon Dioxide BUN Creatinine Glucose POC Glucose 187 H 139 H Lactic Acid Phosphorus Magnesium Ferritin Lactate Dehydrogenase C-Reactive Protein NT-Pro-B Natriuret Pep Total Protein Albumin Triglycerides Arterial Blood Glucose Ur Specific [place] Coronavirus (PCR) 03/11/21 03/11/21 03/11/21 02:09 04:28 08:06 WBC RBC Hgb Hct MCV MCHC RDW Lymph % (Auto) [place] % (Auto) [place] # (Auto) Seg Neutrophils % Seg Neuts % (Manual) Lymphocytes % (Manual) Monocytes % (Manual) Nucleated RBC % Seg Neutrophils # Seg Neutrophils # Man Lymphocytes # (Manual) Monocytes # (Manual) PT INR D-Dimer ABG pH 7.277 L POC ABG pCO2 55.9 H POC ABG pO2 54.4 L ABG pO2 ABG HCO3 ABG O2 Saturation ABG Base Excess ABG Hemoglobin ABG Oxyhemoglobin 83.0 L ABG Sodium ABG Potassium 4.8 H ABG Glucose 180 H Oxyhemoglobin Sodium Potassium Chloride Carbon Dioxide BUN 38 H Creatinine Glucose 249 H POC Glucose 278 H Lactic Acid Phosphorus Magnesium Ferritin Lactate Dehydrogenase C-Reactive Protein NT-Pro-B Natriuret Pep Total Protein Albumin 3.2 L Triglycerides Arterial Blood Glucose 180 H Ur Specific [place] Coronavirus (PCR) 03/11/21 03/11/21 03/11/21 11:29 15:06 15:48 WBC RBC Hgb Hct MCV MCHC RDW Lymph % (Auto) [place] % (Auto) [place] # (Auto) Seg Neutrophils % Seg Neuts % (Manual) Lymphocytes % (Manual) Monocytes % (Manual) Nucleated RBC % Seg Neutrophils # Seg Neutrophils # Man Lymphocytes # (Manual) Monocytes # (Manual) PT INR D-Dimer ABG pH 7.260 L POC ABG pCO2 POC ABG pO2 ABG pO2 53.5 L ABG HCO3 29.5 H ABG O2 Saturation 84.0 L ABG Base Excess ABG Hemoglobin ABG Oxyhemoglobin ABG Sodium ABG Potassium ABG Glucose Oxyhemoglobin 82.3 L Sodium Potassium Chloride Carbon Dioxide BUN Creatinine Glucose POC Glucose 288 H 295 H Lactic Acid Phosphorus Magnesium Ferritin Lactate Dehydrogenase C-Reactive Protein NT-Pro-B Natriuret Pep Total Protein Albumin Triglycerides Arterial Blood Glucose Ur Specific [place] Coronavirus (PCR) 03/12/21 03/12/21 03/12/21 00:01 05:24 08:03 WBC RBC Hgb Hct MCV MCHC RDW Lymph % (Auto) [place] % (Auto) [place] # (Auto) Seg Neutrophils % Seg Neuts % (Manual) Lymphocytes % (Manual) Monocytes % (Manual) Nucleated RBC % Seg Neutrophils # Seg Neutrophils # Man Lymphocytes # (Manual) Monocytes # (Manual) PT INR D-Dimer ABG pH POC ABG pCO2 POC ABG pO2 ABG pO2 ABG HCO3 ABG O2 Saturation ABG Base Excess ABG Hemoglobin ABG Oxyhemoglobin ABG Sodium ABG Potassium ABG Glucose Oxyhemoglobin Sodium 135 L Potassium Chloride Carbon Dioxide BUN 48 H Creatinine Glucose 358 H POC Glucose 304 H 310 H Lactic Acid Phosphorus Magnesium Ferritin Lactate Dehydrogenase C-Reactive Protein NT-Pro-B Natriuret Pep Total Protein 6.0 L Albumin 2.9 L Triglycerides Arterial Blood Glucose Ur Specific [place] Coronavirus (PCR) 03/12/21 03/12/21 03/12/21 08:03 10:43 11:31 WBC 14.6 H RBC Hgb Hct MCV MCHC RDW Lymph % (Auto) [place] % (Auto) [place] # (Auto) Seg Neutrophils % Seg Neuts % (Manual) Lymphocytes % (Manual) Monocytes % (Manual) Nucleated RBC % Seg Neutrophils # Seg Neutrophils # Man Lymphocytes # (Manual) Monocytes # (Manual) PT INR D-Dimer ABG pH 7.248 L POC ABG pCO2 POC ABG pO2 ABG pO2 73.7 L ABG HCO3 32.0 H ABG O2 Saturation 93.9 L ABG Base Excess ABG Hemoglobin ABG Oxyhemoglobin ABG Sodium ABG Potassium ABG Glucose Oxyhemoglobin 92.1 L Sodium Potassium Chloride Carbon Dioxide BUN Creatinine Glucose POC Glucose 359 H Lactic Acid Phosphorus Magnesium Ferritin Lactate Dehydrogenase C-Reactive Protein NT-Pro-B Natriuret Pep Total Protein Albumin Triglycerides Arterial Blood Glucose Ur Specific [place] Coronavirus (PCR) 03/12/21 03/12/21 03/13/21 17:20 21:54 00:02 WBC RBC Hgb Hct MCV MCHC RDW Lymph % (Auto) [place] % (Auto) [place] # (Auto) Seg Neutrophils % Seg Neuts % (Manual) Lymphocytes % (Manual) Monocytes % (Manual) Nucleated RBC % Seg Neutrophils # Seg Neutrophils # Man Lymphocytes # (Manual) Monocytes # (Manual) PT INR D-Dimer ABG pH 7.238 L POC ABG pCO2 71.9 H POC ABG pO2 53.6 L ABG pO2 ABG HCO3 ABG O2 Saturation ABG Base Excess ABG Hemoglobin ABG Oxyhemoglobin 84.8 L ABG Sodium 134.2 L ABG Potassium 4.9 H ABG Glucose 306 H Oxyhemoglobin Sodium Potassium Chloride Carbon Dioxide BUN Creatinine Glucose POC Glucose 374 H 308 H Lactic Acid Phosphorus Magnesium Ferritin Lactate Dehydrogenase C-Reactive Protein NT-Pro-B Natriuret Pep Total Protein Albumin Triglycerides Arterial Blood Glucose 306 H Ur Specific [place] Coronavirus (PCR) 03/13/21 03/13/21 03/13/21 05:22 05:44 05:44 WBC 13.9 H RBC Hgb Hct MCV MCHC RDW Lymph % (Auto) [place] % (Auto) [place] # (Auto) Seg Neutrophils % Seg Neuts % (Manual) Lymphocytes % (Manual) Monocytes % (Manual) Nucleated RBC % Seg Neutrophils # Seg Neutrophils # Man Lymphocytes # (Manual) Monocytes # (Manual) PT INR D-Dimer 3567.97 H ABG pH POC ABG pCO2 POC ABG pO2 ABG pO2 ABG HCO3 ABG O2 Saturation ABG Base Excess ABG Hemoglobin ABG Oxyhemoglobin ABG Sodium ABG Potassium ABG Glucose Oxyhemoglobin Sodium Potassium Chloride Carbon Dioxide BUN Creatinine Glucose POC Glucose 316 H Lactic Acid Phosphorus Magnesium Ferritin Lactate Dehydrogenase C-Reactive Protein NT-Pro-B Natriuret Pep Total Protein Albumin Triglycerides Arterial Blood Glucose Ur Specific [place] Coronavirus (PCR) 03/13/21 03/13/21 03/13/21 05:44 05:44 11:15 WBC RBC Hgb Hct MCV MCHC RDW Lymph % (Auto) [place] % (Auto) [place] # (Auto) Seg Neutrophils % Seg Neuts % (Manual) Lymphocytes % (Manual) Monocytes % (Manual) Nucleated RBC % Seg Neutrophils # Seg Neutrophils # Man Lymphocytes # (Manual) Monocytes # (Manual) PT INR D-Dimer ABG pH 7.310 L POC ABG pCO2 POC ABG pO2 ABG pO2 52.3 L ABG HCO3 34.1 H ABG O2 Saturation 86.8 L ABG Base Excess 5.5 H ABG Hemoglobin 13.8 L ABG Oxyhemoglobin ABG Sodium ABG Potassium ABG Glucose Oxyhemoglobin 85.1 L Sodium Potassium Chloride Carbon Dioxide BUN Creatinine Glucose POC Glucose Lactic Acid Phosphorus Magnesium Ferritin 858.7 H Lactate Dehydrogenase 348 H C-Reactive Protein 2.80 H NT-Pro-B Natriuret Pep Total Protein Albumin Triglycerides Arterial Blood Glucose Ur Specific [place] Coronavirus (PCR) 03/13/21 03/13/21 03/13/21 11:21 15:47 19:23 WBC RBC Hgb Hct MCV MCHC RDW Lymph % (Auto) [place] % (Auto) [place] # (Auto) Seg Neutrophils % Seg Neuts % (Manual) Lymphocytes % (Manual) Monocytes % (Manual) Nucleated RBC % Seg Neutrophils # Seg Neutrophils # Man Lymphocytes # (Manual) Monocytes # (Manual) PT INR D-Dimer ABG pH POC ABG pCO2 POC ABG pO2 ABG pO2 ABG HCO3 ABG O2 Saturation ABG Base Excess ABG Hemoglobin ABG Oxyhemoglobin ABG Sodium ABG Potassium ABG Glucose Oxyhemoglobin Sodium 136 L Potassium 5.9 H Chloride Carbon Dioxide BUN 50 H Creatinine Glucose 397 H POC Glucose 322 H 317 H Lactic Acid Phosphorus Magnesium Ferritin Lactate Dehydrogenase C-Reactive Protein NT-Pro-B Natriuret Pep Total Protein Albumin Triglycerides Arterial Blood Glucose Ur Specific [place] Coronavirus (PCR) 03/13/21 03/14/21 03/14/21 23:46 05:32 05:50 WBC 11.6 H RBC Hgb Hct MCV MCHC RDW Lymph % (Auto) [place] % (Auto) [place] # (Auto) Seg Neutrophils % Seg Neuts % (Manual) Lymphocytes % (Manual) Monocytes % (Manual) Nucleated RBC % Seg Neutrophils # Seg Neutrophils # Man Lymphocytes # (Manual) Monocytes # (Manual) PT INR D-Dimer ABG pH POC ABG pCO2 POC ABG pO2 ABG pO2 ABG HCO3 ABG O2 Saturation ABG Base Excess ABG Hemoglobin ABG Oxyhemoglobin ABG Sodium ABG Potassium ABG Glucose Oxyhemoglobin Sodium Potassium Chloride Carbon Dioxide BUN Creatinine Glucose POC Glucose 332 H 316 H Lactic Acid Phosphorus Magnesium Ferritin Lactate Dehydrogenase C-Reactive Protein NT-Pro-B Natriuret Pep Total Protein Albumin Triglycerides Arterial Blood Glucose Ur Specific [place] Coronavirus (PCR) 03/14/21 03/14/21 03/14/21 05:50 11:33 16:53 WBC RBC Hgb Hct MCV MCHC RDW Lymph % (Auto) [place] % (Auto) [place] # (Auto) Seg Neutrophils % Seg Neuts % (Manual) Lymphocytes % (Manual) Monocytes % (Manual) Nucleated RBC % Seg Neutrophils # Seg Neutrophils # Man Lymphocytes # (Manual) Monocytes # (Manual) PT INR D-Dimer ABG pH POC ABG pCO2 POC ABG pO2 ABG pO2 ABG HCO3 ABG O2 Saturation ABG Base Excess ABG Hemoglobin ABG Oxyhemoglobin ABG Sodium ABG Potassium ABG Glucose Oxyhemoglobin Sodium Potassium 5.9 H Chloride Carbon Dioxide 31 H BUN 48 H Creatinine Glucose 380 H POC Glucose 315 H 235 H Lactic Acid Phosphorus Magnesium 3.40 H Ferritin Lactate Dehydrogenase C-Reactive Protein NT-Pro-B Natriuret Pep Total Protein Albumin Triglycerides Arterial Blood Glucose Ur Specific [place] Coronavirus (PCR) 03/14/21 03/14/21 03/15/21 18:34 23:27 01:22 WBC RBC Hgb Hct 46.3 H MCV MCHC RDW Lymph % (Auto) [place] % (Auto) [place] # (Auto) Seg Neutrophils % Seg Neuts % (Manual) Lymphocytes % (Manual) Monocytes % (Manual) Nucleated RBC % Seg Neutrophils # Seg Neutrophils # Man Lymphocytes # (Manual) Monocytes # (Manual) PT INR D-Dimer ABG pH POC ABG pCO2 POC ABG pO2 ABG pO2 ABG HCO3 ABG O2 Saturation ABG Base Excess ABG Hemoglobin ABG Oxyhemoglobin ABG Sodium ABG Potassium ABG Glucose Oxyhemoglobin Sodium 146 H Potassium Chloride Carbon Dioxide 34 H BUN 49 H Creatinine Glucose 285 H POC Glucose 203 H Lactic Acid Phosphorus Magnesium Ferritin Lactate Dehydrogenase C-Reactive Protein NT-Pro-B Natriuret Pep Total Protein Albumin Triglycerides Arterial Blood Glucose Ur Specific [place] Coronavirus (PCR) 03/15/21 03/15/21 03/15/21 04:00 06:06 06:06 WBC RBC Hgb Hct MCV MCHC RDW Lymph % (Auto) [place] % (Auto) [place] # (Auto) Seg Neutrophils % Seg Neuts % (Manual) Lymphocytes % (Manual) Monocytes % (Manual) Nucleated RBC % Seg Neutrophils # Seg Neutrophils # Man Lymphocytes # (Manual) Monocytes # (Manual) PT INR D-Dimer 1781.79 H ABG pH POC ABG pCO2 POC ABG pO2 ABG pO2 ABG HCO3 ABG O2 Saturation ABG Base Excess ABG Hemoglobin ABG Oxyhemoglobin ABG Sodium ABG Potassium ABG Glucose Oxyhemoglobin Sodium 148 H Potassium 5.7 H D Chloride 108.0 H Carbon Dioxide 31 H BUN 46 H Creatinine Glucose 139 H POC Glucose Lactic Acid Phosphorus 4.80 H D Magnesium 3.00 H Ferritin 976.4 H Lactate Dehydrogenase 630 H C-Reactive Protein NT-Pro-B Natriuret Pep Total Protein Albumin Triglycerides Arterial Blood Glucose Ur Specific [place] Coronavirus (PCR) 03/15/21 03/15/21 03/15/21 11:56 14:05 17:09 WBC RBC Hgb Hct MCV MCHC RDW Lymph % (Auto) [place] % (Auto) [place] # (Auto) Seg Neutrophils % Seg Neuts % (Manual) Lymphocytes % (Manual) Monocytes % (Manual) Nucleated RBC % Seg Neutrophils # Seg Neutrophils # Man Lymphocytes # (Manual) Monocytes # (Manual) PT INR D-Dimer ABG pH POC ABG pCO2 POC ABG pO2 ABG pO2 52.1 L ABG HCO3 36.6 H ABG O2 Saturation 87.6 L ABG Base Excess 9.5 H ABG Hemoglobin ABG Oxyhemoglobin ABG Sodium ABG Potassium ABG Glucose Oxyhemoglobin 85.7 L Sodium Potassium Chloride Carbon Dioxide BUN Creatinine Glucose POC Glucose 219 H 263 H Lactic Acid Phosphorus Magnesium Ferritin Lactate Dehydrogenase C-Reactive Protein NT-Pro-B Natriuret Pep Total Protein Albumin Triglycerides Arterial Blood Glucose Ur Specific [place] Coronavirus (PCR) 03/16/21 03/16/21 03/16/21 00:32 04:11 04:11 WBC 11.9 H RBC Hgb Hct MCV MCHC 30 L RDW Lymph % (Auto) [place] % (Auto) [place] # (Auto) Seg Neutrophils % Seg Neuts % (Manual) Lymphocytes % (Manual) Monocytes % (Manual) Nucleated RBC % Seg Neutrophils # Seg Neutrophils # Man Lymphocytes # (Manual) Monocytes # (Manual) PT INR D-Dimer ABG pH POC ABG pCO2 POC ABG pO2 ABG pO2 ABG HCO3 ABG O2 Saturation ABG Base Excess ABG Hemoglobin ABG Oxyhemoglobin ABG Sodium ABG Potassium ABG Glucose Oxyhemoglobin Sodium 151 H Potassium Chloride Carbon Dioxide 35 H BUN 48 H Creatinine Glucose 152 H POC Glucose 165 H Lactic Acid Phosphorus Magnesium Ferritin Lactate Dehydrogenase C-Reactive Protein NT-Pro-B Natriuret Pep Total Protein Albumin Triglycerides Arterial Blood Glucose Ur Specific [place] Coronavirus (PCR) 03/16/21 03/16/21 03/16/21 04:11 05:26 11:35 WBC RBC Hgb Hct MCV MCHC RDW Lymph % (Auto) [place] % (Auto) [place] # (Auto) Seg Neutrophils % Seg Neuts % (Manual) Lymphocytes % (Manual) Monocytes % (Manual) Nucleated RBC % Seg Neutrophils # Seg Neutrophils # Man Lymphocytes # (Manual) Monocytes # (Manual) PT INR D-Dimer ABG pH POC ABG pCO2 POC ABG pO2 ABG pO2 ABG HCO3 ABG O2 Saturation ABG Base Excess ABG Hemoglobin ABG Oxyhemoglobin ABG Sodium ABG Potassium ABG Glucose Oxyhemoglobin Sodium Potassium Chloride Carbon Dioxide BUN Creatinine Glucose POC Glucose 162 H 187 H Lactic Acid Phosphorus Magnesium Ferritin Lactate Dehydrogenase C-Reactive Protein NT-Pro-B Natriuret Pep Total Protein Albumin Triglycerides 267 H Arterial Blood Glucose Ur Specific [place] Coronavirus (PCR) 03/16/21 03/16/21 03/16/21 17:29 22:25 23:22 WBC RBC Hgb Hct MCV MCHC RDW Lymph % (Auto) [place] % (Auto) [place] # (Auto) Seg Neutrophils % Seg Neuts % (Manual) Lymphocytes % (Manual) Monocytes % (Manual) Nucleated RBC % Seg Neutrophils # Seg Neutrophils # Man Lymphocytes # (Manual) Monocytes # (Manual) PT INR D-Dimer ABG pH POC ABG pCO2 POC ABG pO2 ABG pO2 ABG HCO3 ABG O2 Saturation ABG Base Excess ABG Hemoglobin ABG Oxyhemoglobin ABG Sodium ABG Potassium ABG Glucose Oxyhemoglobin Sodium Potassium Chloride Carbon Dioxide BUN Creatinine Glucose POC Glucose 237 H 165 H 189 H Lactic Acid Phosphorus Magnesium Ferritin Lactate Dehydrogenase C-Reactive Protein NT-Pro-B Natriuret Pep Total Protein Albumin Triglycerides Arterial Blood Glucose Ur Specific [place] Coronavirus (PCR) 03/17/21 03/17/21 03/17/21 04:40 04:40 04:40 WBC 14.1 H RBC Hgb Hct MCV MCHC RDW 15.3 H Lymph % (Auto) 12.[address] [place] % (Auto) 11.[address] [place] # (Auto) 1.6 H Seg Neutrophils % 74.9 H Seg Neuts % (Manual) Lymphocytes % (Manual) Monocytes % (Manual) Nucleated RBC % Seg Neutrophils # 10.5 H Seg Neutrophils # Man Lymphocytes # (Manual) Monocytes # (Manual) PT INR D-Dimer 1359.12 H ABG pH POC ABG pCO2 POC ABG pO2 ABG pO2 ABG HCO3 ABG O2 Saturation ABG Base Excess ABG Hemoglobin ABG Oxyhemoglobin ABG Sodium ABG Potassium ABG Glucose Oxyhemoglobin Sodium 148 H Potassium Chloride 107.5 H Carbon Dioxide 33 H BUN 42 H Creatinine Glucose 183 H POC Glucose Lactic Acid Phosphorus Magnesium 2.70 H Ferritin Lactate Dehydrogenase C-Reactive Protein NT-Pro-B Natriuret Pep Total Protein Albumin Triglycerides Arterial Blood Glucose Ur Specific [place] Coronavirus (PCR) 03/17/21 03/17/21 03/17/21 05:53 11:05 11:51 WBC RBC Hgb Hct MCV MCHC RDW Lymph % (Auto) [place] % (Auto) [place] # (Auto) Seg Neutrophils % Seg Neuts % (Manual) Lymphocytes % (Manual) Monocytes % (Manual) Nucleated RBC % Seg Neutrophils # Seg Neutrophils # Man Lymphocytes # (Manual) Monocytes # (Manual) PT INR D-Dimer ABG pH POC ABG pCO2 POC ABG pO2 ABG pO2 ABG HCO3 35.7 H ABG O2 Saturation ABG Base Excess 8.7 H ABG Hemoglobin ABG Oxyhemoglobin ABG Sodium ABG Potassium ABG Glucose Oxyhemoglobin 94.2 L Sodium Potassium Chloride Carbon Dioxide BUN Creatinine Glucose POC Glucose 176 H 197 H Lactic Acid Phosphorus Magnesium Ferritin Lactate Dehydrogenase C-Reactive Protein NT-Pro-B Natriuret Pep Total Protein Albumin Triglycerides Arterial Blood Glucose Ur Specific [place] Coronavirus (PCR) 03/17/21 03/17/21 03/17/21 16:54 21:10 23:33 WBC RBC Hgb Hct MCV MCHC RDW Lymph % (Auto) [place] % (Auto) [place] # (Auto) Seg Neutrophils % Seg Neuts % (Manual) Lymphocytes % (Manual) Monocytes % (Manual) Nucleated RBC % Seg Neutrophils # Seg Neutrophils # Man Lymphocytes # (Manual) Monocytes # (Manual) PT INR D-Dimer ABG pH POC ABG pCO2 POC ABG pO2 ABG pO2 ABG HCO3 ABG O2 Saturation ABG Base Excess ABG Hemoglobin ABG Oxyhemoglobin ABG Sodium ABG Potassium ABG Glucose Oxyhemoglobin Sodium Potassium Chloride Carbon Dioxide BUN Creatinine Glucose POC Glucose 135 H 160 H 138 H Lactic Acid Phosphorus Magnesium Ferritin Lactate Dehydrogenase C-Reactive Protein NT-Pro-B Natriuret Pep Total Protein Albumin Triglycerides Arterial Blood Glucose Ur Specific [place] Coronavirus (PCR) 03/18/21 03/18/21 03/18/21 04:18 04:50 05:43 WBC RBC Hgb Hct MCV MCHC RDW Lymph % (Auto) [place] % (Auto) [place] # (Auto) Seg Neutrophils % Seg Neuts % (Manual) Lymphocytes % (Manual) Monocytes % (Manual) Nucleated RBC % Seg Neutrophils # Seg Neutrophils # Man Lymphocytes # (Manual) Monocytes # (Manual) PT INR D-Dimer ABG pH POC ABG pCO2 POC ABG pO2 ABG pO2 59.8 L ABG HCO3 36.5 H ABG O2 Saturation 90.7 L ABG Base Excess 9.4 H ABG Hemoglobin 12.0 L ABG Oxyhemoglobin ABG Sodium ABG Potassium ABG Glucose Oxyhemoglobin 88.9 L Sodium Potassium Chloride 107.2 H Carbon Dioxide 34 H BUN 38 H Creatinine 0.7 L Glucose 136 H POC Glucose 128 H Lactic Acid Phosphorus Magnesium Ferritin Lactate Dehydrogenase C-Reactive Protein NT-Pro-B Natriuret Pep Total Protein Albumin Triglycerides Arterial Blood Glucose Ur Specific [place] Coronavirus (PCR) 03/18/21 03/18/21 03/18/21 11:20 17:35 23:35 WBC RBC Hgb Hct MCV MCHC RDW Lymph % (Auto) [place] % (Auto) [place] # (Auto) Seg Neutrophils % Seg Neuts % (Manual) Lymphocytes % (Manual) Monocytes % (Manual) Nucleated RBC % Seg Neutrophils # Seg Neutrophils # Man Lymphocytes # (Manual) Monocytes # (Manual) PT INR D-Dimer ABG pH POC ABG pCO2 POC ABG pO2 ABG pO2 70.7 L ABG HCO3 33.6 H ABG O2 Saturation ABG Base Excess 8.0 H ABG Hemoglobin ABG Oxyhemoglobin ABG Sodium ABG Potassium ABG Glucose Oxyhemoglobin 93.7 L Sodium Potassium Chloride Carbon Dioxide BUN Creatinine Glucose POC Glucose 189 H 144 H Lactic Acid Phosphorus Magnesium Ferritin Lactate Dehydrogenase C-Reactive Protein NT-Pro-B Natriuret Pep Total Protein Albumin Triglycerides Arterial Blood Glucose Ur Specific [place] Coronavirus (PCR) 03/19/21 03/19/21 03/19/21 02:35 04:20 04:20 WBC 14.0 H RBC Hgb Hct MCV MCHC RDW Lymph % (Auto) [place] % (Auto) [place] # (Auto) Seg Neutrophils % Seg Neuts % (Manual) Lymphocytes % (Manual) Monocytes % (Manual) Nucleated RBC % Seg Neutrophils # Seg Neutrophils # Man Lymphocytes # (Manual) Monocytes # (Manual) PT INR D-Dimer ABG pH POC ABG pCO2 POC ABG pO2 ABG pO2 ABG HCO3 32.0 H ABG O2 Saturation ABG Base Excess 5.2 H ABG Hemoglobin 13.6 L ABG Oxyhemoglobin ABG Sodium ABG Potassium ABG Glucose Oxyhemoglobin 94.6 L Sodium 146 H Potassium Chloride 109.3 H Carbon Dioxide BUN 36 H Creatinine Glucose 203 H POC Glucose Lactic Acid Phosphorus Magnesium Ferritin Lactate Dehydrogenase C-Reactive Protein NT-Pro-B Natriuret Pep Total Protein Albumin Triglycerides 254 H Arterial Blood Glucose Ur Specific [place] Coronavirus (PCR) 03/19/21 03/19/21 03/19/21 05:45 11:36 23:51 WBC RBC Hgb Hct MCV MCHC RDW Lymph % (Auto) [place] % (Auto) [place] # (Auto) Seg Neutrophils % Seg Neuts % (Manual) Lymphocytes % (Manual) Monocytes % (Manual) Nucleated RBC % Seg Neutrophils # Seg Neutrophils # Man Lymphocytes # (Manual) Monocytes # (Manual) PT INR D-Dimer ABG pH POC ABG pCO2 POC ABG pO2 ABG pO2 ABG HCO3 ABG O2 Saturation ABG Base Excess ABG Hemoglobin ABG Oxyhemoglobin ABG Sodium ABG Potassium ABG Glucose Oxyhemoglobin Sodium Potassium Chloride Carbon Dioxide BUN Creatinine Glucose POC Glucose 164 H 172 H 140 H Lactic Acid Phosphorus Magnesium Ferritin Lactate Dehydrogenase C-Reactive Protein NT-Pro-B Natriuret Pep Total Protein Albumin Triglycerides Arterial Blood Glucose Ur Specific [place] Coronavirus (PCR) 03/20/21 03/20/21 03/20/21 03:29 04:45 04:45 WBC RBC Hgb Hct MCV 95 H MCHC RDW 15.7 H Lymph % (Auto) [place] % (Auto) [place] # (Auto) Seg Neutrophils % Seg Neuts % (Manual) Lymphocytes % (Manual) Monocytes % (Manual) Nucleated RBC % Seg Neutrophils # Seg Neutrophils # Man Lymphocytes # (Manual) Monocytes # (Manual) PT INR D-Dimer ABG pH 7.349 L POC ABG pCO2 POC ABG pO2 ABG pO2 ABG HCO3 33.7 H ABG O2 Saturation ABG Base Excess 6.4 H ABG Hemoglobin 11.8 L ABG Oxyhemoglobin ABG Sodium ABG Potassium ABG Glucose Oxyhemoglobin 93.9 L Sodium 146 H Potassium 5.5 H Chloride 111.1 H Carbon Dioxide BUN 34 H Creatinine 0.7 L Glucose 145 H POC Glucose Lactic Acid Phosphorus Magnesium 2.50 H Ferritin Lactate Dehydrogenase C-Reactive Protein NT-Pro-B Natriuret Pep Total Protein Albumin Triglycerides Arterial Blood Glucose Ur Specific [place] Coronavirus (PCR) 03/20/21 03/20/21 03/20/21 05:41 09:08 11:54 WBC RBC Hgb Hct MCV MCHC RDW Lymph % (Auto) [place] % (Auto) [place] # (Auto) Seg Neutrophils % Seg Neuts % (Manual) Lymphocytes % (Manual) Monocytes % (Manual) Nucleated RBC % Seg Neutrophils # Seg Neutrophils # Man Lymphocytes # (Manual) Monocytes # (Manual) PT INR D-Dimer ABG pH POC ABG pCO2 POC ABG pO2 ABG pO2 ABG HCO3 ABG O2 Saturation ABG Base Excess ABG Hemoglobin ABG Oxyhemoglobin ABG Sodium ABG Potassium ABG Glucose Oxyhemoglobin Sodium Potassium Chloride Carbon Dioxide BUN Creatinine Glucose POC Glucose 108 H 132 H 162 H Lactic Acid Phosphorus Magnesium Ferritin Lactate Dehydrogenase C-Reactive Protein NT-Pro-B Natriuret Pep Total Protein Albumin Triglycerides Arterial Blood Glucose Ur Specific [place] Coronavirus (PCR) 03/20/21 03/21/21 03/21/21 17:28 00:31 04:44 WBC RBC Hgb Hct MCV MCHC RDW Lymph % (Auto) [place] % (Auto) [place] # (Auto) Seg Neutrophils % Seg Neuts % (Manual) Lymphocytes % (Manual) Monocytes % (Manual) Nucleated RBC % Seg Neutrophils # Seg Neutrophils # Man Lymphocytes # (Manual) Monocytes # (Manual) PT INR D-Dimer ABG pH POC ABG pCO2 POC ABG pO2 ABG pO2 ABG HCO3 ABG O2 Saturation ABG Base Excess ABG Hemoglobin ABG Oxyhemoglobin ABG Sodium ABG Potassium ABG Glucose Oxyhemoglobin Sodium Potassium Chloride 108.3 H Carbon Dioxide BUN 30 H Creatinine 0.7 L Glucose POC Glucose 160 H 122 H Lactic Acid Phosphorus Magnesium Ferritin Lactate Dehydrogenase C-Reactive Protein NT-Pro-B Natriuret Pep Total Protein Albumin Triglycerides Arterial Blood Glucose Ur Specific [place] Coronavirus (PCR) 03/21/21 03/21/21 03/21/21 09:18 10:09 13:20 WBC RBC Hgb Hct MCV MCHC RDW Lymph % (Auto) [place] % (Auto) [place] # (Auto) Seg Neutrophils % Seg Neuts % (Manual) Lymphocytes % (Manual) Monocytes % (Manual) Nucleated RBC % Seg Neutrophils # Seg Neutrophils # Man Lymphocytes # (Manual) Monocytes # (Manual) PT INR D-Dimer ABG pH POC ABG pCO2 POC ABG pO2 ABG pO2 60.7 L ABG HCO3 30.6 H ABG O2 Saturation 93.6 L ABG Base Excess 5.3 H ABG Hemoglobin ABG Oxyhemoglobin ABG Sodium ABG Potassium ABG Glucose Oxyhemoglobin 91.7 L Sodium Potassium Chloride Carbon Dioxide BUN Creatinine Glucose POC Glucose 169 H 122 H Lactic Acid Phosphorus Magnesium Ferritin Lactate Dehydrogenase C-Reactive Protein NT-Pro-B Natriuret Pep Total Protein Albumin Triglycerides Arterial Blood Glucose Ur Specific [place] Coronavirus (PCR) 03/21/21 03/21/21 03/21/21 17:25 22:41 23:52 WBC RBC Hgb Hct MCV MCHC RDW Lymph % (Auto) [place] % (Auto) [place] # (Auto) Seg Neutrophils % Seg Neuts % (Manual) Lymphocytes % (Manual) Monocytes % (Manual) Nucleated RBC % Seg Neutrophils # Seg Neutrophils # Man Lymphocytes # (Manual) Monocytes # (Manual) PT INR D-Dimer ABG pH POC ABG pCO2 POC ABG pO2 ABG pO2 ABG HCO3 ABG O2 Saturation ABG Base Excess ABG Hemoglobin ABG Oxyhemoglobin ABG Sodium ABG Potassium ABG Glucose Oxyhemoglobin Sodium Potassium Chloride Carbon Dioxide BUN Creatinine Glucose POC Glucose 121 H 139 H 140 H Lactic Acid Phosphorus Magnesium Ferritin Lactate Dehydrogenase C-Reactive Protein NT-Pro-B Natriuret Pep Total Protein Albumin Triglycerides Arterial Blood Glucose Ur Specific [place] Coronavirus (PCR) 03/22/21 03/22/21 03/22/21 05:58 07:26 07:26 WBC RBC Hgb Hct MCV MCHC 31 L RDW 16.1 H Lymph % (Auto) [place] % (Auto) [place] # (Auto) Seg Neutrophils % Seg Neuts % (Manual) Lymphocytes % (Manual) Monocytes % (Manual) Nucleated RBC % Seg Neutrophils # Seg Neutrophils # Man Lymphocytes # (Manual) Monocytes # (Manual) PT INR D-Dimer ABG pH POC ABG pCO2 POC ABG pO2 ABG pO2 ABG HCO3 ABG O2 Saturation ABG Base Excess ABG Hemoglobin ABG Oxyhemoglobin ABG Sodium ABG Potassium ABG Glucose Oxyhemoglobin Sodium Potassium Chloride 108.5 H Carbon Dioxide BUN 44 H Creatinine Glucose 120 H POC Glucose 131 H Lactic Acid Phosphorus 5.80 H Magnesium 2.80 H Ferritin Lactate Dehydrogenase C-Reactive Protein NT-Pro-B Natriuret Pep Total Protein Albumin Triglycerides 305 H Arterial Blood Glucose Ur Specific [place] Coronavirus (PCR) 03/22/21 03/22/21 09:38 11:15 WBC RBC Hgb Hct MCV MCHC RDW Lymph % (Auto) [place] % (Auto) [place] # (Auto) Seg Neutrophils % Seg Neuts % (Manual) Lymphocytes % (Manual) Monocytes % (Manual) Nucleated RBC % Seg Neutrophils # Seg Neutrophils # Man Lymphocytes # (Manual) Monocytes # (Manual) PT INR D-Dimer ABG pH POC ABG pCO2 POC ABG pO2 ABG pO2 70.0 L ABG HCO3 30.0 H ABG O2 Saturation 94.6 L ABG Base Excess 3.6 H ABG Hemoglobin 13.5 L ABG Oxyhemoglobin ABG Sodium ABG Potassium ABG Glucose Oxyhemoglobin 92.5 L Sodium Potassium Chloride Carbon Dioxide BUN Creatinine Glucose POC Glucose 186 H Lactic Acid Phosphorus Magnesium Ferritin Lactate Dehydrogenase C-Reactive Protein NT-Pro-B Natriuret Pep Total Protein Albumin Triglycerides Arterial Blood Glucose Ur Specific [place] Coronavirus (PCR) Chest x-ray: pending Allied health notes reviewed: nursing
--- NOTE | 2021-03-22 13:28 | Progress Note ---
Assessment and Plan Cultures: SARS CoV2 PCR: positive 03/08/2021 blood culture: no growth 03/10/2021 sputum culture: Usual respiratory marlyn 03/16/2021 blood culture: In process 03/18/2021 sputum culture: Stenotrophomonas A/P: 61-year-old male with diabetes, hypertension admitted to the hospital with complaints of shortness of breath and feeling weak for the last 1 week: #Sepsis secondary to bilateral pneumonia: secondary to COVID-19. Elevated inflammatory markers. WBC 22.6, creatinine 1.3, ferritin 877, CRP 18.0, LDH 624, procalcitonin 0.18. D-dimer >10k. CTA negative for pulmonary embolism, severe patchy groundglass opacities. #New fever: probably COVID related. #Acute hypoxic respiratory failure: initially required BiPAP, now intubated, on the vent. #DM #HTN Recs: -Start Bactrim for stenotrophomonas. -Continue steroids per pulm, on solumedrol, would not extend beyond 10 days especially since patient also received Actemra. -completed IV remdesivir -s/p Actemra 03/10/2021 -prophylactic anticoagulation based on d-dimer per hospital protocol Nayan Goins MD [facility] ([facility] O: [phone] F: [phone] Subjective Date of service: 03/22/21 Principal diagnosis: COVID-19 infection; DM II; Bilateral pneumonia; Obesity; HTN Interval history: Febrile last night to 100.5, otherwise afebrile. Normal white count. Imaging personally reviewed: Abdominal x-ray: Constipation. Objective - Exam Narrative Exam: Physical exam deferred to reduce risk of transmission of COVID-19. Please refer to primary team's note. - Constitutional Vitals: Vital Signs Temp Pulse Resp BP Pulse Ox 98.8 F 107 H 19 114/63 95 03/22/21 11:33 03/22/21 11:30 03/22/21 10:15 03/22/21 11:30 03/22/21 11:30 Temperature -Last 24 Hours Temperature 98.8 F Temperature 99.2 F Temperature 98.5 F Temperature 98.9 F Temperature 100.5 F Temperature 99.2 F - Labs CBC & Chem 7: 03/22/21 07:26 03/22/21 07:26 Labs: Abnormal lab results 03/21/21 03/21/21 03/21/21 Range/Units 17:25 22:41 23:52 MCHC (32-34) % RDW (13.2-15.2) % ABG pO2 (80.0-90.0) mm Hg ABG HCO3 (20.0-26.0) mmol/L ABG O2 Saturation (95.0-99.0) % ABG Base Excess (-2.0-3.0) mmol/L ABG Hemoglobin (14.0-18.0) gm/dl Oxyhemoglobin (95.0-99.0) % Chloride (98-107) mmol/L BUN (9-20) mg/dL Glucose (75-100) mg/dL POC Glucose 121 H 139 H 140 H (70-105) mg/dL Phosphorus (2.5-4.5) mg/dL Magnesium (1.7-2.3) mg/dL Triglycerides (2-149) mg/dL 03/22/21 03/22/21 03/22/21 Range/Units 05:58 07:26 07:26 MCHC 31 L (32-34) % RDW 16.1 H (13.2-15.2) % ABG pO2 (80.0-90.0) mm Hg ABG HCO3 (20.0-26.0) mmol/L ABG O2 Saturation (95.0-99.0) % ABG Base Excess (-2.0-3.0) mmol/L ABG Hemoglobin (14.0-18.0) gm/dl Oxyhemoglobin (95.0-99.0) % Chloride 108.5 H (98-107) mmol/L BUN 44 H (9-20) mg/dL Glucose 120 H (75-100) mg/dL POC Glucose 131 H (70-105) mg/dL Phosphorus 5.80 H (2.5-4.5) mg/dL Magnesium 2.80 H (1.7-2.3) mg/dL Triglycerides 305 H (2-149) mg/dL 03/22/21 03/22/21 Range/Units 09:38 11:15 MCHC (32-34) % RDW (13.2-15.2) % ABG pO2 70.0 L (80.0-90.0) mm Hg ABG HCO3 30.0 H (20.0-26.0) mmol/L ABG O2 Saturation 94.6 L (95.0-99.0) % ABG Base Excess 3.6 H (-2.0-3.0) mmol/L ABG Hemoglobin 13.5 L (14.0-18.0) gm/dl Oxyhemoglobin 92.5 L (95.0-99.0) % Chloride (98-107) mmol/L BUN (9-20) mg/dL Glucose (75-100) mg/dL POC Glucose 186 H (70-105) mg/dL Phosphorus (2.5-4.5) mg/dL Magnesium (1.7-2.3) mg/dL Triglycerides (2-149) mg/dL
[2021-03-22] MEDS: MIDAZOLAM 2 MG/2 ML INJ IV PRN (13:56)
--- NOTE | 2021-03-22 17:40 | Progress Note ---
<FLORIANMARISABEL ChambersLester - Last Filed: 03/22/21 17:36> Assessment and Plan Assessment and plan: This is a 61-year-old man with HTN and DM admitted with COVID-19 pneumonia, acute hypoxic respiratory failure, sepsis Severe sepsis (POA), COVID 19 PNA, Stenotrophomonas Maltophillia in trachial aspirate -Infectious disease consulted, appreciate recommendation -S/p Actemra 03/10/2021 -IV remdesivir for 5 days -Solumederol 60mg q 8 -weaning started -Prophylactic anticoagulation per hospital protocol -Droplet/isolation precautions -Monitor WBC and temperature curve -03/08 blood culture x2 with no growth to date and tracheal aspirate GNR -Speciated to Stenotrophomonas Maltophillia -started on bactrim Acute hypoxic respiratory failure -CCM consulted, appreciate recommendations -CT chest shows severe patchy multifocal ground glass airspace disease -Intubated on 03/10 with a 7.50 ETT at 20 for the lips -A.m. vent settings: Assist control tidal volume 450, rate 25, PEEP 8, FiO2 45% -See RT notes for titration -decrease in rr -A.m. ABG and CXR noted -VAP bundle -SPO2 monitoring -Albuterol as needed, Brovana and Pulmicort Acute Metabolic Encephalopathy -Avoid delirium -Reorientation as needed -Sedated with propofol and fentanyl -Seroquel, Librium taper -RASS goal -1 to -2 -As needed analgesia -Maintain sleep-wake cycle -Bilateral restraints in place for safety -SAT and SBT when appropriate Superficial thrombus in left gastrocnemius vein -Bilateral lower extremity ultrasound negative for DVT, superficial thrombus in left gastrocnemius vein -CTA chest shows no gross pulm embolism -Trend CBC -SCDs to BLE while in bed -Transfuse hemoglobin less than 7 -Treatment dose Lovenox -Monitor for signs of bleeding h/o HTN -Blood pressure monitoring per protocol -Cardiology consulted, appreciate recommendations -Echocardiogram shows a mildly dilated ascending aorta, normal LV systolic f unction, mild concentric LVH, LVEF 60 to 65% -Hydralazine and metoprolol Obesity -24 hours + 1964 mL -PPI -NTR consulted for tube feedings -BR: Senokot -BMS in place -removed d/t external hemorrhoids Endo: h/o DM -Avoid hypoglycemia -SSI, lantus->increase as needed -Accu-Cheks q. 6 The high probability of a clinically significant, sudden or life threatening deterioration of the [multi] system(s) required my full and direct attention, intervention and personal management. The aggregate critical care time was [60] minutes. This time is in addition to time spent performing reported procedures but includes the following: [x] Data Review and interpretation [x] Patient assessment and monitoring of vital signs [x] Documentation [x] Medication orders and management Disposition Plan: icu Total Time Spent with Patient (Minutes): 60 History Interval history: This is a 61-year-old male with HTN and DM who presented to the emergency department on 03/09 with shortness of breath and hypoxia via EMS. Patient had apparently been feeling ill for proxy 1 week prior to mentation. Upon EMS arrival patient SPO2 was in the low 70s and improved to upper 80slow 90s on nonrebreather and he was transported to [facility] in the emergency department patient was noted to be hypoxic and placed on a BiPAP with improvement to mentation and hypoxia. CXR showed bilateral patchy infiltrates. Lab work showed leukocytosis, elevated D-dimer, hyponatremia, hypochloremia and elevated COVID-19 markers with elevated BNP. CTA chest showed no pulmonary embolism. Patient was admitted to the hospitalist service as a COVID-19 PUI and started on antibiotics and Decadron with consult to infectious disease. 03/09: The patient was seen and evaluated today, and he was found to be hemodynamically stable. The patient is currently on BiPAP for possible COVID-19 pneumonia. He was started on Lovenox 1mg/kg for DVT ppx in the setting of d- dimer > 10,000. Infectious Disease was consulted. The patient is pending a TTE. 03/10: No acute events overnight, patient was intubated in the afternoon transferred to ICU 03/11: Patient started on Lantus, free water flushes increased, propofol drip resumed and oral antihypertensive added. 03/12: lantus increased, k at 5, will monitor. I updated his family and his stated that he is not vaccinated. He does have HTN and she will call the RN to update home medications. She did say he takes bystolic and amlopine. She inquired about ventilator and lab work. She had no further questions. 03/13: KVNG overnight. Patient remains hyperglycemic, basal insulin adjusted and increased to Q12hrs. Patient is overall net positive since admit X1 dose of IV lasix, repeat BMP this afternoon. 03/14: Failed SAT this am due to increase agitation, tachycardia and hypertension. Remains on propofol and fentanyl gtt. Hyperkalemia treated with PO kayaxalate. Patient responded to IV lasix yesterday additional dose again today for a net negative balance. Repeat BMP this afternoon. Insulin adjusted for hyperglycemia. 03/15: Remains encephalopathic, not following commansd. Orders placed for CT head/Brain and Neuro consulted. Rectal bleeding subsided, most likely due to hemorrhoids. H&H is stable will continue to monitor. Kayaxexalate for high K, repeat labs 4 to 6hrs post treatment. 03/16: Still agiated this am, CT head with no acute Abn. CXR and ABG noted- evolving pna and worsening hypoxia, now with low grade fevers. Sputum culture ordered, IV Abx added, ID on cosult. 03/17: This am ABG noted, hypoxia improved. Continue to wean FiO2 as tolerated. Still with low grade fevers, on IV Abx per ID. Still with periods of confusion despite sedation, seroquel increased. F/u CXR in the am 03/18: still very agitated especially when off sedation, with hypertension and tachycardia. Continue sedation for RASS -2, PRN antihypertensive for SPB greater than 160. This febrile this am, continue current IV abx per ID 03/19: Patient afebrile overnight, continue IV Abx per ID. ABG also improved this am, continue to wean FIO2 as tolerated. PRN antihypertensive for hypertension. 03/20: Hyperkalemia treated with Kayexalate, Good discontinued, vancomycin and cefepime stopped started Bactrim by ID. Steroid taper started. 03/21: BB started for hypertension, Seroquel increased for agitation and Librium started no acute events reported overnight. [facility] made vent changes 03/22: Adjustment to anxiolytics, respiratory rate on ventilator per [facility]. Patient noted to have bleeding hemorrhoids with clot, requested RN to remove bowel management system and will order Preparation H. Hospitalist Physical - Physical exam Narrative exam: General appearance: Present: well-nourished, obese, other (sedated) - EENT Eyes: Present: PERRL, EOM intact ENT: hearing intact, clear oral mucosa - Neck Neck: Present: normal ROM - Respiratory Respiratory effort: normal Respiratory: bilateral: diminished - Cardiovascular Rhythm: regular Heart Sounds: Present: S1 & S2. Absent: systolic murmur, diastolic murmur - Extremities Extremities: no ischemia, pulses intact, pulses symmetrical, No edema, normal temperature, normal color Peripheral Pulses: within normal limits - Abdominal General gastrointestinal: soft, non-tender, non-distended, normal bowel sounds - Integumentary Integumentary: Present: warm, dry - Psychiatric Psychiatric: other - Neurologic Neurologic: other - Allied Health Allied health notes reviewed: nursing, RT - Constitutional Vitals: Temp Pulse Resp BP Pulse Ox 98.0 F 113 H 21 139/94 93 03/22/21 16:10 03/22/21 15:53 03/22/21 15:30 03/22/21 15:53 03/22/21 15:53 General appearance: Present: no acute distress, well-nourished, obese, other (Intubated and sedated) Results - Labs CBC & Chem 7: 03/22/21 07:26 03/22/21 07:26 Labs: Laboratory Last Values WBC 11.0 K/mm3 (4.5-11.0) 03/22/21 07:26 RBC 4.14 M/mm3 (3.65-5.03) 03/22/21 07:26 Hgb 12.2 gm/dl (11.8-15.2) 03/22/21 07:26 Hct 38.9 % (35.5-45.6) 03/22/21 07:26 MCV 94 fl (84-94) 03/22/21 07:26 MCH 30 pg (28-32) 03/22/21 07:26 MCHC 31 % (32-34) L 03/22/21 07:26 RDW 16.1 % (13.2-15.2) H 03/22/21 07:26 Plt Count 218 K/mm3 (140-440) 03/22/21 07:26 Lymph % (Auto) 12.6 % (13.4-35.0) L 03/17/21 04:40 [place] % (Auto) 11.3 % (0.0-7.3) H 03/17/21 04:40 Eos % (Auto) 0.4 % (0.0-4.3) 03/17/21 04:40 Baso % (Auto) 0.8 % (0.0-1.8) 03/17/21 04:40 Lymph # (Auto) 1.8 K/mm3 (1.2-5.4) 03/17/21 04:40 [place] # (Auto) 1.6 K/mm3 (0.0-0.8) H 03/17/21 04:40 Eos # (Auto) 0.1 K/mm3 (0.0-0.4) 03/17/21 04:40 Baso # (Auto) 0.1 K/mm3 (0.0-0.1) 03/17/21 04:40 Add Manual Diff Complete 03/10/21 04:29 Total Counted 100 03/10/21 04:29 Seg Neutrophils % 74.9 % (40.0-70.0) H 03/17/21 04:40 Seg Neuts % (Manual) 94.0 % (40.0-70.0) H 03/10/21 04:29 Band Neutrophils % 0 % 03/10/21 04:29 Lymphocytes % (Manual) 1.0 % (13.4-35.0) L 03/10/21 04:29 Reactive Lymphs % (Man) 0 % 03/10/21 04:29 Monocytes % (Manual) 5.0 % (0.0-7.3) 03/10/21 04:29 Eosinophils % (Manual) 0 % (0.0-4.3) 03/10/21 04:29 Basophils % (Manual) 0 % (0.0-1.8) 03/10/21 04:29 Metamyelocytes % 0 % 03/10/21 04:29 Myelocytes % 0 % 03/10/21 04:29 Promyelocytes % 0 % 03/10/21 04:29 Blast Cells % 0 % 03/10/21 04:29 Nucleated RBC % 3.0 % (0.0-0.9) H 03/10/21 04:29 Seg Neutrophils # 10.5 K/mm3 (1.8-7.7) H 03/17/21 04:40 Seg Neutrophils # Man 19.4 K/mm3 (1.8-7.7) H 03/10/21 04:29 Band Neutrophils # 0.0 K/mm3 03/10/21 04:29 Lymphocytes # (Manual) 0.2 K/mm3 (1.2-5.4) L 03/10/21 04:29 Abs React Lymphs (Man) 0.0 K/mm3 03/10/21 04:29 Monocytes # (Manual) 1.0 K/mm3 (0.0-0.8) H 03/10/21 04:29 Eosinophils # (Manual) 0.0 K/mm3 (0.0-0.4) 03/10/21 04:29 Basophils # (Manual) 0.0 K/mm3 (0.0-0.1) 03/10/21 04:29 Metamyelocytes # 0.0 K/mm3 03/10/21 04:29 Myelocytes # 0.0 K/mm3 03/10/21 04:29 Promyelocytes # 0.0 K/mm3 03/10/21 04:29 Blast Cells # 0.0 K/mm3 03/10/21 04:29 WBC Morphology Not Reportable 03/10/21 04:29 Hypersegmented Neuts Not Reportable 03/10/21 04:29 Hyposegmented Neuts Not Reportable 03/10/21 04:29 Hypogranular Neuts Not Reportable 03/10/21 04:29 Smudge Cells Not Reportable 03/10/21 04:29 Toxic Granulation Not Reportable 03/10/21 04:29 Toxic Vacuolation Not Reportable 03/10/21 04:29 Dohle Bodies Not Reportable 03/10/21 04:29 Pelger-Huet Anomaly Not Reportable 03/10/21 04:29 Mely Rods Not Reportable 03/10/21 04:29 Platelet Estimate Consistent w auto 03/10/21 04:29 Clumped Platelets Not Reportable 03/10/21 04:29 Plt Clumps, EDTA Not Reportable 03/10/21 04:29 Large Platelets Not Reportable 03/10/21 04:29 Giant Platelets Not Reportable 03/10/21 04:29 Platelet Satelliting Not Reportable 03/10/21 04:29 Plt Morphology Comment Not Reportable 03/10/21 04:29 RBC Morphology Normal 03/10/21 04:29 Dimorphic RBCs Not Reportable 03/10/21 04:29 Polychromasia Not Reportable 03/10/21 04:29 Hypochromasia Not Reportable 03/10/21 04:29 Poikilocytosis Not Reportable 03/10/21 04:29 Anisocytosis Not Reportable 03/10/21 04:29 Microcytosis Not Reportable 03/10/21 04:29 Macrocytosis Not Reportable 03/10/21 04:29 Spherocytes Not Reportable 03/10/21 04:29 Pappenheimer Bodies Not Reportable 03/10/21 04:29 Sickle Cells Not Reportable 03/10/21 04:29 Target Cells Not Reportable 03/10/21 04:29 Tear Drop Cells Not Reportable 03/10/21 04:29 Ovalocytes Not Reportable 03/10/21 04:29 Helmet Cells Not Reportable 03/10/21 04:29 Longo-Shallotte Bodies Not Reportable 03/10/21 04:29 Benton Rings Not Reportable 03/10/21 04:29 Shama Cells Not Reportable 03/10/21 04:29 Bite Cells Not Reportable 03/10/21 04:29 Crenated Cell Not Reportable 03/10/21 04:29 Elliptocytes Not Reportable 03/10/21 04:29 Acanthocytes (Spur) Not Reportable 03/10/21 04:29 Rouleaux Not Reportable 03/10/21 04:29 Hemoglobin C Crystals Not Reportable 03/10/21 04:29 Schistocytes Not Reportable 03/10/21 04:29 Malaria parasites Not Reportable 03/10/21 04:29 Shaheen Bodies Not Reportable 03/10/21 04:29 Hem Pathologist Commnt No 03/10/21 04:29 PT 16.1 Sec. (12.2-14.9) H 03/08/21 20:24 INR 1.17 (0.87-1.13) H 03/08/21 20:24 APTT 28.0 Sec. (24.2-36.6) 03/08/21 20:24 D-Dimer 1359.12 ng/mlDDU (0-234) H 03/17/21 04:40 ABG pH 7.373 pH Units (7.350-7.450) 03/22/21 09:38 POC ABG pCO2 71.9 mmHg (32.0-48.0) H 03/12/21 21:54 ABG pCO2 52.7 mm Hg 03/22/21 09:38 POC ABG pO2 53.6 mmHg (83-108) L 03/12/21 21:54 ABG pO2 70.0 mm Hg (80.0-90.0) L 03/22/21 09:38 POC ABG HCO3 30.0 03/12/21 21:54 ABG HCO3 30.0 mmol/L (20.0-26.0) H 03/22/21 09:38 ABG O2 Saturation 94.6 % (95.0-99.0) L 03/22/21 09:38 ABG O2 Content 17.6 (0.0-44) 03/22/21 09:38 POC ABG Base Excess 0.5 03/12/21 21:54 ABG Base Excess 3.6 mmol/L (-2.0-3.0) H 03/22/21 09:38 ABG Hemoglobin 13.5 gm/dl (14.0-18.0) L 03/22/21 09:38 ABG Oxyhemoglobin 84.8 (94-98) L 03/12/21 21:54 ABG Carboxyhemoglobin 1.5 % (0.0-5.0) 03/22/21 09:38 ABG Methemoglobin 0.7 % (0.0-1.5) 03/22/21 09:38 ABG Sodium 134.2 mmol/L (136.0-145.0) L 03/12/21 21:54 ABG Potassium 4.9 mmol/L (3.40-4.50) H 03/12/21 21:54 ABG Chloride 99.0 mmol/L (98-107) 03/12/21 21:54 ABG Glucose 306 mg/dL (65-95) H 03/12/21 21:54 Oxyhemoglobin 92.5 % (95.0-99.0) L 03/22/21 09:38 Carboxyhemoglobin 0.6 (0.5-1.5) 03/12/21 21:54 FiO2 45 % 03/22/21 09:38 FiO2 % 50.0 03/12/21 21:54 Sodium 145 mmol/L (137-145) 03/22/21 07:26 Potassium 5.0 mmol/L (3.6-5.0) 03/22/21 07:26 Chloride 108.5 mmol/L (98-107) H 03/22/21 07:26 Carbon Dioxide 29 mmol/L (22-30) 03/22/21 07:26 Anion Gap 13 mmol/L 03/22/21 07:26 BUN 44 mg/dL (9-20) H 03/22/21 07:26 Creatinine 1.1 mg/dL (0.8-1.3) D 03/22/21 07:26 Estimated GFR > 60 ml/min 03/22/21 07:26 BUN/Creatinine Ratio 40 % 03/22/21 07:26 Glucose 120 mg/dL (75-100) H 03/22/21 07:26 POC Glucose 148 mg/dL (70-105) H 03/22/21 16:01 Lactic Acid 1.90 mmol/L (0.7-2.0) 03/08/21 23:51 Calcium 8.6 mg/dL (8.4-10.2) 03/22/21 07:26 Phosphorus 5.80 mg/dL (2.5-4.5) H 03/22/21 07:26 Magnesium 2.80 mg/dL (1.7-2.3) H 03/22/21 07:26 Ferritin 976.4 ng/mL (30.0-300.0) H 03/15/21 04:00 Total Bilirubin 0.20 mg/dL (0.1-1.2) 03/12/21 08:03 AST 10 units/L (5-40) 03/12/21 08:03 ALT 16 units/L (7-56) 03/12/21 08:03 Alkaline Phosphatase 77 units/L (35-129) 03/12/21 08:03 Lactate Dehydrogenase 630 units/L (91-180) H 03/15/21 06:06 C-Reactive Protein 0.40 mg/dL (0.00-1.30) 03/17/21 04:40 NT-Pro-B Natriuret Pep 1053 pg/mL (0-900) H 03/08/21 20:24 Total Protein 6.0 g/dL (6.3-8.2) L 03/12/21 08:03 Albumin 2.9 g/dL (3.9-5) L 03/12/21 08:03 Albumin/Globulin Ratio 0.9 % 03/12/21 08:03 Triglycerides 305 mg/dL (2-149) H 03/22/21 07:26 Procalcitonin 0.05 ng/mL (<0.15) 03/17/21 04:40 Arterial Blood Glucose 306 mg/dL (65-95) H 03/12/21 21:54 Arterial Blood Ionized Calcium 5.0 mg/dL (4.6-5.3) 03/12/21 21:54 Urine Color Yellow (Yellow) 03/09/21 04:10 Urine Turbidity Slightly-cloudy (Clear) 03/09/21 04:10 Urine pH 5.0 (5.0-7.0) 03/09/21 04:10 Ur Specific [place] 1.041 (1.003-1.030) H 03/09/21 04:10 Urine Protein 100 mg/dl mg/dL (Negative) 03/09/21 04:10 Urine Glucose (UA) Neg mg/dL (Negative) 03/09/21 04:10 Urine Ketones Neg mg/dL (Negative) 03/09/21 04:10 Urine Blood Mod (Negative) 03/09/21 04:10 Urine Nitrite Neg (Negative) 03/09/21 04:10 Urine Bilirubin Neg (Negative) 03/09/21 04:10 Urine Urobilinogen 2.0 mg/dL (<2.0) 03/09/21 04:10 Ur Leukocyte Esterase Neg (Negative) 03/09/21 04:10 Urine WBC (Auto) 4.0 /HPF (0.0-6.0) 03/09/21 04:10 Urine RBC (Auto) 1.0 /HPF (0.0-6.0) 03/09/21 04:10 Urine Bacteria (Auto) 1+ /HPF (Negative) 03/09/21 04:10 Urine Mucus Few /HPF 03/09/21 04:10 Coronavirus (PCR) Positive (Negative) A 03/09/21 08:00 Miscellaneous Test Flexitest 1 03/16/21 09:48 Microbiology: Microbiology 03/16/21 13:51 Peripheral/Venous Blood Culture - Final NO GROWTH AFTER 5 DAYS 03/16/21 13:51 Peripheral/Venous Blood Culture - Final NO GROWTH AFTER 5 DAYS Good/IV: Voiding Method Indwelling Catheter Active Medications - Current Medications Current Medications: Generic Name Dose Route Start Last Admin Trade Name Freq PRN Reason Stop Dose Admin Acetaminophen 650 mg 03/09/21 01:26 03/17/21 12:08 Acetaminophen 325 Mg Tab PO 650 mg Q4H PRN Administration Pain MILD(1-3)/Fever >100.5/RAYO Albuterol 2.5 mg 03/09/21 01:26 03/18/21 21:06 Albuterol 2.5 Mg/3 Ml Nebu IH 2.5 mg Q4HRT PRN Administration Shortness Of Breath Arformoterol Tartrate 15 mcg 03/11/21 20:00 03/22/21 09:34 Arformoterol 15 Mcg/2 Ml Nebu IH 15 mcg Q12HRT BLANCA Administration Ascorbic Acid 500 mg 03/10/21 14:00 03/22/21 10:28 Ascorbic Acid 500 Mg Tab PO 500 mg BID BLANCA Administration Budesonide 0.25 mg 03/11/21 20:00 03/22/21 09:33 Budesonide 0.25 Mg/2 Ml Nebu IH 0.25 mg Q12HRT BLANCA Administration Chlordiazepoxide HCl 75 mg 03/22/21 18:00 Chlordiazepoxide 25 Mg Cap PO Q6HR BLANCA Dextrose 0 ml 03/20/21 10:52 Dextrose 10% *Hypoglycemia IV PRN PRN Hypoglycemia Enoxaparin Sodium 120 mg 03/20/21 22:00 03/22/21 10:29 Enoxaparin 120 Mg/0.8 Ml Inj SUB-Q 120 mg Q12HR BLANCA Administration Protocol Famotidine 20 mg 03/12/21 22:00 03/22/21 10:28 Famotidine 20 Mg Tab FEEDTUBE 20 mg BID BLANCA Administration Hydralazine HCl 75 mg 03/21/21 17:30 03/22/21 13:56 Hydralazine 25 Mg Tab PO 75 mg Q8HR BLANCA Administration Hydrophilic Ointment 1 applic 03/10/21 15:39 Lip Therapy Vaseline TP Q2HR PRN Dry Lips Fentanyl Citrate 2,000 mcg in 100 mls @ 5.897 mls/hr 03/10/21 17:00 03/22/21 14:19 Fentanyl Drip Premix IV 4 mcg/kg/hr TITR BLANCA 23.587 mls/hr Administration Protocol 1 MCG/KG/HR Propofol 1,000 mg in 100 mls @ 3.507 mls/hr 03/11/21 17:00 03/22/21 12:48 Diprivan 10 Mg/Ml IV 0 mcg/kg/min TITR BLANCA 0 mls/hr Titration Protocol 5 MCG/KG/MIN Insulin Glargine 25 units 03/14/21 10:00 03/22/21 10:29 Insulin Glargine 100 Units/Ml SUB-Q 25 units BID [facility] Administration Insulin Human Lispro 0 unit 03/11/21 18:00 03/22/21 13:55 Insulin Lispro 100 Unit/Ml SUB-Q 3 unit Q6HR [facility] Administration Protocol Labetalol HCl 10 mg 03/12/21 21:13 03/21/21 16:54 Labetalol 20 Mg/4 Ml Inj IV 10 mg Q6H PRN Administration Blood Pressure Methylprednisolone Sodium Succinate 40 mg 03/21/21 06:00 03/22/21 13:56 Methylprednisolone Sod Succinate 40 Mg/1 Ml Inj IV 03/24/21 05:59 40 mg Q8HR [facility] Administration Methylprednisolone Sodium Succinate 40 mg 03/25/21 10:00 Methylprednisolone Sod Succinate 40 Mg/1 Ml Inj IV 03/26/21 22:01 Q12HR [facility] Methylprednisolone Sodium Succinate 40 mg 03/27/21 10:00 Methylprednisolone Sod Succinate 40 Mg/1 Ml Inj IV 03/28/21 10:01 Q24HR [facility] Metoprolol Tartrate 12.5 mg 03/21/21 22:00 03/22/21 10:28 Metoprolol Tartrate 25 Mg Tab PO 12.5 mg BID [facility] Administration Midazolam HCl 2 mg 03/15/21 08:49 03/22/21 13:56 Midazolam 2 Mg/2 Ml Inj IV 2 mg Q2H PRN Administration VENT SYNCHRONY Multi-Ingred Cream/Lotion/Oil/Oint 1 applic 03/10/21 15:39 Mineral Oil/Petrolatum, White Ophth Oint 3.5 Gm OU Q4HR PRN Dry Eye(s) Ondansetron HCl 4 mg 03/09/21 01:26 Ondansetron 4 Mg/2 Ml Inj IV Q8H PRN Nausea And Vomiting Phenyleph/Shark Oil/Min Oil/Petrol 1 applic 03/22/21 17:35 Pe/Mo/Pet,Wh 10 Applic/28 Gm Tube MS Q6HR PRN Hemorrhoids Quetiapine Fumarate 300 mg 03/21/21 22:00 03/22/21 10:28 Quetiapine 100 Mg Tab PO 300 mg BID BLANCA Administration Senna/Docusate Sodium 1 tab 03/10/21 22:00 03/22/21 10:28 Sennosides/Docusate Sodium 8.6/50 Mg Tab FEEDTUBE 1 tab BID [facility]ANCA Administration Sodium Chloride 10 ml 03/09/21 10:00 03/22/21 10:29 Sodium Chloride 0.9% 10 Ml Flush Syringe IV 10 ml BID BLANCA Administration Sodium Chloride 10 ml 03/09/21 01:26 Sodium Chloride 0.9% 10 Ml Flush Syringe IV PRN PRN LINE FLUSH Sodium Chloride 10 ml 03/20/21 09:48 Sodium Chloride 0.9% 50 Ml Ivpb IV PRN PRN FLUSH Trimethoprim/Sulfamethoxazole 1 each 03/20/21 16:00 03/22/21 10:27 Sulfamethoxazole/Trimethoprim 800/160mg Ds Tab PO 1 each Q12HR BLANCA Administration Protocol Zinc Sulfate 220 mg 03/10/21 14:00 03/22/21 10:27 Zinc Sulfate 220 Mg Cap PO 220 mg BID BLANCA Administration Nutrition/Malnutrition Assess - Dietary Evaluation Nutrition/Malnutrition Findings: Nutrition Notes Start: 03/09/21 08:49 Freq: Status: Active Protocol: Document 03/20/21 16:21 BRYANNA (Rec: 03/20/21 16:53 BRYANNA [id number]) Nutrition Notes Current Diagnosis Diabetes,Sepsis,Hypertension, Respiratory Failure Other Pertinent Diagnosis COVID-19, Bilateral Pneumonia. Current Diet TF-Glucerna 1.2 Tyson at 40 ml/ hr (since D 03/17). Labs/Tests 03/20: Na 146, K 5.5, Cl 111.1 , BUN 34, Crea 0.7, Glu 145, Mg 2.5. Pertinent Medications 03/20: Vit C, Insulin, ZnSO4, Propofol @ 35.07 ml/hr ( 926Kcal), others nutritionally unremarkable. Height 5 ft 11 in Weight 120 kg Anita Body Weight (kg) 78.18 BMI 36.8 Weight change and time frame 3.0 Kg body weight gain in 3 days reported. Weight Status Obese Subjective/Other Information RD consult for routine F/U on TF tolerance. Pt remains on mechanical ventilation, according to [facility]gre[facility] notes. TF continues as prescribed. Pt continues with low-grade fever. Percent of energy/protein needs met: Prescribed Glucerna 1.2 Tyson @ 40 ml/hr provides for energy/ protein needs (1,152 Kcal/58 g ) during LOS, additionally, Propofol contributes with 926 Kcal, 87% Kcal; 46% AA. #1 Nutrition Diagnosis Inadequate oral intake Diagnosis Progress(for reassessment Continues documentation) Nutrition Intervention Nutrition Support: Continue Glucerna 1.2 @ 40 ml/ hr. Flush: 200ml water Q 4 hr ( until hypernatremia resolved). Kcal 1,152 Protein (gm) 58 Carbohydrates (gm) 110 Fat (gm) 58 Fluid (mL) 773 Fiber (gm) 15 % RDI: 48% Kcal; 46% AA. Goal #1 Provide at least 75% of energy /protein needs through Enteral Feeding during LOS. Follow-Up By: 03/27/21 Additional Comments Continue monitoring TF tolerance and BM. <RAFAEL DOMINGUEZ - Last Filed: 04/03/21 18:50> Assessment and Plan Assessment and plan: I saw and evaluated the patient. Discussed with the nurse practitioner and agree with their findings and plan as documented in this note. Hospitalist Physical - Constitutional Vitals: Temp Pulse Resp BP Pulse Ox 99.1 F 107 H 25 H 127/62 95 04/03/21 16:42 04/03/21 18:15 04/03/21 18:15 04/03/21 18:15 04/03/21 18:15 Results - Labs CBC & Chem 7: 04/03/21 04:14 04/03/21 04:14 Labs: Laboratory Last Values WBC 8.8 K/mm3 (4.5-11.0) 04/03/21 04:14 RBC 3.62 M/mm3 (3.65-5.03) L 04/03/21 04:14 Hgb 11.0 gm/dl (11.8-15.2) L 04/03/21 04:14 Hct 34.0 % (35.5-45.6) L 04/03/21 04:14 MCV 94 fl (84-94) 04/03/21 04:14 MCH 30 pg (28-32) 04/03/21 04:14 MCHC 32 % (32-34) 04/03/21 04:14 RDW 16.3 % (13.2-15.2) H 04/03/21 04:14 Plt Count 280 K/mm3 (140-440) 04/03/21 04:14 Lymph % (Auto) 7.6 % (13.4-35.0) L 03/31/21 13:30 [place] % (Auto) 9.5 % (0.0-7.3) H 03/31/21 13:30 Eos % (Auto) 4.1 % (0.0-4.3) 03/31/21 13:30 Baso % (Auto) 0.5 % (0.0-1.8) 03/31/21 13:30 Lymph # (Auto) 0.6 K/mm3 (1.2-5.4) L 03/31/21 13:30 [place] # (Auto) 0.7 K/mm3 (0.0-0.8) 03/31/21 13:30 Eos # (Auto) 0.3 K/mm3 (0.0-0.4) 03/31/21 13:30 Baso # (Auto) 0.0 K/mm3 (0.0-0.1) 03/31/21 13:30 Add Manual Diff Complete 03/10/21 04:29 Total Counted 100 03/10/21 04:29 Seg Neutrophils % 78.3 % (40.0-70.0) H 03/31/21 13:30 Seg Neuts % (Manual) 94.0 % (40.0-70.0) H 03/10/21 04:29 Band Neutrophils % 0 % 03/10/21 04:29 Lymphocytes % (Manual) 1.0 % (13.4-35.0) L 03/10/21 04:29 Reactive Lymphs % (Man) 0 % 03/10/21 04:29 Monocytes % (Manual) 5.0 % (0.0-7.3) 03/10/21 04:29 Eosinophils % (Manual) 0 % (0.0-4.3) 03/10/21 04:29 Basophils % (Manual) 0 % (0.0-1.8) 03/10/21 04:29 Metamyelocytes % 0 % 03/10/21 04:29 Myelocytes % 0 % 03/10/21 04:29 Promyelocytes % 0 % 03/10/21 04:29 Blast Cells % 0 % 03/10/21 04:29 Nucleated RBC % 3.0 % (0.0-0.9) H 03/10/21 04:29 Seg Neutrophils # 5.8 K/mm3 (1.8-7.7) 03/31/21 13:30 Seg Neutrophils # Man 19.4 K/mm3 (1.8-7.7) H 03/10/21 04:29 Band Neutrophils # 0.0 K/mm3 03/10/21 04:29 Lymphocytes # (Manual) 0.2 K/mm3 (1.2-5.4) L 03/10/21 04:29 Abs React Lymphs (Man) 0.0 K/mm3 03/10/21 04:29 Monocytes # (Manual) 1.0 K/mm3 (0.0-0.8) H 03/10/21 04:29 Eosinophils # (Manual) 0.0 K/mm3 (0.0-0.4) 03/10/21 04:29 Basophils # (Manual) 0.0 K/mm3 (0.0-0.1) 03/10/21 04:29 Metamyelocytes # 0.0 K/mm3 03/10/21 04:29 Myelocytes # 0.0 K/mm3 03/10/21 04:29 Promyelocytes # 0.0 K/mm3 03/10/21 04:29 Blast Cells # 0.0 K/mm3 03/10/21 04:29 WBC Morphology Not Reportable 03/10/21 04:29 Hypersegmented Neuts Not Reportable 03/10/21 04:29 Hyposegmented Neuts Not Reportable 03/10/21 04:29 Hypogranular Neuts Not Reportable 03/10/21 04:29 Smudge Cells Not Reportable 03/10/21 04:29 Toxic Granulation Not Reportable 03/10/21 04:29 Toxic Vacuolation Not Reportable 03/10/21 04:29 Dohle Bodies Not Reportable 03/10/21 04:29 Pelger-Huet Anomaly Not Reportable 03/10/21 04:29 Mely Rods Not Reportable 03/10/21 04:29 Platelet Estimate Consistent w auto 03/10/21 04:29 Clumped Platelets Not Reportable 03/10/21 04:29 Plt Clumps, EDTA Not Reportable 03/10/21 04:29 Large Platelets Not Reportable 03/10/21 04:29 Giant Platelets Not Reportable 03/10/21 04:29 Platelet Satelliting Not Reportable 03/10/21 04:29 Plt Morphology Comment Not Reportable 03/10/21 04:29 RBC Morphology Normal 03/10/21 04:29 Dimorphic RBCs Not Reportable 03/10/21 04:29 Polychromasia Not Reportable 03/10/21 04:29 Hypochromasia Not Reportable 03/10/21 04:29 Poikilocytosis Not Reportable 03/10/21 04:29 Anisocytosis Not Reportable 03/10/21 04:29 Microcytosis Not Reportable 03/10/21 04:29 Macrocytosis Not Reportable 03/10/21 04:29 Spherocytes Not Reportable 03/10/21 04:29 Pappenheimer Bodies Not Reportable 03/10/21 04:29 Sickle Cells Not Reportable 03/10/21 04:29 Target Cells Not Reportable 03/10/21 04:29 Tear Drop Cells Not Reportable 03/10/21 04:29 Ovalocytes Not Reportable 03/10/21 04:29 Helmet Cells Not Reportable 03/10/21 04:29 [place] Bodies Not Reportable 03/10/21 04:29 [place] Rings Not Reportable 03/10/21 04:29 [place] Cells Not Reportable 03/10/21 04:29 Bite Cells Not Reportable 03/10/21 04:29 Crenated Cell Not Reportable 03/10/21 04:29 Elliptocytes Not Reportable 03/10/21 04:29 Acanthocytes (Spur) Not Reportable 03/10/21 04:29 Rouleaux Not Reportable 03/10/21 04:29 Hemoglobin C Crystals Not Reportable 03/10/21 04:29 Schistocytes Not Reportable 03/10/21 04:29 Malaria parasites Not Reportable 03/10/21 04:29 Shaheen Bodies Not Reportable 03/10/21 04:29 Hem Pathologist Commnt No 03/10/21 04:29 PT 13.0 Sec. (12.2-14.9) 03/29/21 04:50 INR 0.88 (0.87-1.13) 03/29/21 04:50 APTT 28.0 Sec. (24.2-36.6) 03/08/21 20:24 D-Dimer 1359.12 ng/mlDDU (0-234) H 03/17/21 04:40 ABG pH 7.397 pH Units (7.350-7.450) 03/31/21 12:50 POC ABG pCO2 71.9 mmHg (32.0-48.0) H 03/12/21 21:54 ABG pCO2 58.1 mm Hg 03/31/21 12:50 POC ABG pO2 53.6 mmHg (83-108) L 03/12/21 21:54 ABG pO2 99.4 mm Hg (80.0-90.0) H 03/31/21 12:50 POC ABG HCO3 30.0 03/12/21 21:54 ABG HCO3 34.9 mmol/L (20.0-26.0) H 03/31/21 12:50 ABG O2 Saturation 97.3 % (95.0-99.0) 03/31/21 12:50 ABG O2 Content 15.9 (0.0-44) 03/31/21 12:50 POC ABG Base Excess 0.5 03/12/21 21:54 ABG Base Excess 8.4 mmol/L (-2.0-3.0) H 03/31/21 12:50 ABG Hemoglobin 11.8 gm/dl (14.0-18.0) L 03/31/21 12:50 ABG Oxyhemoglobin 84.8 (94-98) L 03/12/21 21:54 ABG Carboxyhemoglobin 1.6 % (0.0-5.0) 03/31/21 12:50 ABG Methemoglobin 0.7 % (0.0-1.5) 03/31/21 12:50 ABG Sodium 134.2 mmol/L (136.0-145.0) L 03/12/21 21:54 ABG Potassium 4.9 mmol/L (3.40-4.50) H 03/12/21 21:54 ABG Chloride 99.0 mmol/L (98-107) 03/12/21 21:54 ABG Glucose 306 mg/dL (65-95) H 03/12/21 21:54 Oxyhemoglobin 95.1 % (95.0-99.0) 03/31/21 12:50 Carboxyhemoglobin 0.6 (0.5-1.5) 03/12/21 21:54 FiO2 40 % 03/31/21 12:50 FiO2 % 50.0 03/12/21 21:54 Sodium 139 mmol/L (137-145) 04/03/21 04:14 Potassium 4.6 mmol/L (3.6-5.0) 04/03/21 04:14 Chloride 99.4 mmol/L (98-107) 04/03/21 04:14 Carbon Dioxide 31 mmol/L (22-30) H 04/03/21 04:14 Anion Gap 13 mmol/L 04/03/21 04:14 BUN 16 mg/dL (9-20) 04/03/21 04:14 Creatinine 0.6 mg/dL (0.8-1.3) L 04/03/21 04:14 Estimated GFR > 60 ml/min 04/03/21 04:14 BUN/Creatinine Ratio 27 % 04/03/21 04:14 Glucose 155 mg/dL (75-100) H 04/03/21 04:14 POC Glucose 180 mg/dL (70-105) H 04/03/21 16:19 Lactic Acid 1.90 mmol/L (0.7-2.0) 03/08/21 23:51 Calcium 8.6 mg/dL (8.4-10.2) 04/03/21 04:14 Phosphorus 3.40 mg/dL (2.5-4.5) 04/02/21 04:26 Magnesium 2.10 mg/dL (1.7-2.3) 04/02/21 04:26 Ferritin 976.4 ng/mL (30.0-300.0) H 03/15/21 04:00 Total Bilirubin 0.20 mg/dL (0.1-1.2) 03/12/21 08:03 AST 10 units/L (5-40) 03/12/21 08:03 ALT 16 units/L (7-56) 03/12/21 08:03 Alkaline Phosphatase 77 units/L (35-129) 03/12/21 08:03 Lactate Dehydrogenase 630 units/L (91-180) H 03/15/21 06:06 C-Reactive Protein 0.40 mg/dL (0.00-1.30) 03/17/21 04:40 NT-Pro-B Natriuret Pep 1053 pg/mL (0-900) H 03/08/21 20:24 Total Protein 6.0 g/dL (6.3-8.2) L 03/12/21 08:03 Albumin 2.9 g/dL (3.9-5) L 03/12/21 08:03 Albumin/Globulin Ratio 0.9 % 03/12/21 08:03 Triglycerides 305 mg/dL (2-149) H 03/22/21 07:26 Procalcitonin 0.17 ng/mL (<0.15) 04/01/21 07:16 Arterial Blood Glucose 306 mg/dL (65-95) H 03/12/21 21:54 Arterial Blood Ionized Calcium 5.0 mg/dL (4.6-5.3) 03/12/21 21:54 Urine Color Yellow (Yellow) 03/09/21 04:10 Urine Turbidity Slightly-cloudy (Clear) 03/09/21 04:10 Urine pH 5.0 (5.0-7.0) 03/09/21 04:10 Ur Specific [place] 1.041 (1.003-1.030) H 03/09/21 04:10 Urine Protein 100 mg/dl mg/dL (Negative) 03/09/21 04:10 Urine Glucose (UA) Neg mg/dL (Negative) 03/09/21 04:10 Urine Ketones Neg mg/dL (Negative) 03/09/21 04:10 Urine Blood Mod (Negative) 03/09/21 04:10 Urine Nitrite Neg (Negative) 03/09/21 04:10 Urine Bilirubin Neg (Negative) 03/09/21 04:10 Urine Urobilinogen 2.0 mg/dL (<2.0) 03/09/21 04:10 Ur Leukocyte Esterase Neg (Negative) 03/09/21 04:10 Urine WBC (Auto) 4.0 /HPF (0.0-6.0) 03/09/21 04:10 Urine RBC (Auto) 1.0 /HPF (0.0-6.0) 03/09/21 04:10 Urine Bacteria (Auto) 1+ /HPF (Negative) 03/09/21 04:10 Urine Mucus Few /HPF 03/09/21 04:10 Coronavirus (PCR) Positive (Negative) A 03/09/21 08:00 Miscellaneous Test Flexitest 1 03/16/21 13:14 Microbiology: Microbiology 03/31/21 13:30 Peripheral/Venous Blood Culture - Preliminary NO GROWTH AFTER 72 HOURS 03/31/21 14:00 Peripheral/Venous Blood Culture - Preliminary NO GROWTH AFTER 72 HOURS 03/31/21 15:55 Tracheal Aspirate Sputum Culture - Final Good/IV: Voiding Method Indwelling Catheter Active Medications - Current Medications Current Medications: Generic Name Dose Route Start Last Admin Trade Name Freq PRN Reason Stop Dose Admin Acetaminophen 650 mg 03/09/21 01:26 04/03/21 05:19 Acetaminophen 325 Mg Tab PO 650 mg Q4H PRN Administration Pain MILD(1-3)/Fever >100.5/RAYO Albuterol 2.5 mg 03/09/21 01:26 03/18/21 21:06 Albuterol 2.5 Mg/3 Ml Nebu IH 2.5 mg Q4HRT PRN Administration Shortness Of Breath Amlodipine Besylate 5 mg 03/30/21 10:00 04/03/21 10:01 Amlodipine 5 Mg Tab PO 5 mg QDAY BLANCA Administration Arformoterol Tartrate 15 mcg 03/11/21 20:00 04/03/21 08:16 Arformoterol 15 Mcg/2 Ml Nebu IH 15 mcg Q12HRT BLANCA Administration Ascorbic Acid 500 mg 03/10/21 14:00 04/03/21 10:00 Ascorbic Acid 500 Mg Tab PO 500 mg BID BLANCA Administration Bisacodyl 10 mg 03/26/21 13:43 03/26/21 13:51 Bisacodyl 10 Mg Rect Supp MS 10 mg QDAY PRN Administration Constipation Budesonide 0.25 mg 03/11/21 20:00 04/03/21 08:16 Budesonide 0.25 Mg/2 Ml Nebu IH 0.25 mg Q12HRT BLANCA Administration Chlordiazepoxide HCl 75 mg 03/22/21 18:00 04/03/21 18:03 Chlordiazepoxide 25 Mg Cap PO 75 mg Q6HR BLANCA Administration Dextrose 0 ml 03/20/21 10:52 Dextrose 10% *Hypoglycemia IV PRN PRN Hypoglycemia Doxazosin Mesylate 1 mg 03/23/21 14:00 04/03/21 10:14 Doxazosin 1 Mg Tab PO 1 mg QDAY BLANCA Administration Enoxaparin Sodium 30 mg 04/01/21 10:00 04/03/21 09:58 Enoxaparin 30 Mg/0.3 Ml Inj SUB-Q 30 mg Q12HR BLANCA Administration Famotidine 20 mg 03/12/21 22:00 04/03/21 09:59 Famotidine 20 Mg Tab FEEDTUBE 20 mg BID BLANCA Administration Fentanyl 1 applic 03/31/21 15:00 04/03/21 10:36 Fentanyl 75 Mcg/Hr Patch 72hr TD 1 applic Q3D BLANCA Administration Fentanyl 50 mcg 03/31/21 14:41 04/01/21 08:38 Fentanyl 100 Mcg/2 Ml Inj IV 50 mcg Q2H PRN Administration ANALGESIA Furosemide 20 mg 03/30/21 18:00 04/03/21 10:02 Furosemide 20 Mg/2 Ml Inj IV 04/04/21 17:59 20 mg QDAY BLANCA Administration Hydralazine HCl 50 mg 03/23/21 14:26 04/03/21 13:36 Hydralazine 25 Mg Tab PO 50 mg Q8HR BLANCA Administration Hydrophilic Ointment 1 applic 03/10/21 15:39 Lip Therapy Vaseline TP Q2HR PRN Dry Lips Fentanyl Citrate 2,000 mcg in 100 mls @ 5.897 mls/hr 03/10/21 17:00 04/03/21 13:36 Fentanyl Drip Premix IV 1 mcg/kg/hr TITR BLANCA 5.897 mls/hr Administration Protocol 1 MCG/KG/HR Propofol 1,000 mg in 100 mls @ 3.507 mls/hr 03/11/21 17:00 03/22/21 18:02 Diprivan 10 Mg/Ml IV 0 mcg/kg/min TITR BLANCA 0 mls/hr Titration Protocol 5 MCG/KG/MIN Insulin Glargine 15 units 03/29/21 22:00 04/02/21 21:11 Insulin Glargine 100 Units/Ml SUB-Q 15 units QHS BLANCA Administration Insulin Human Lispro 0 unit 03/11/21 18:00 04/03/21 18:03 Insulin Lispro 100 Unit/Ml SUB-Q 3 unit Q6HR BLANCA Administration Protocol Labetalol HCl 10 mg 03/12/21 21:13 03/21/21 16:54 Labetalol 20 Mg/4 Ml Inj IV 10 mg Q6H PRN Administration Blood Pressure Metoprolol Tartrate 12.5 mg 03/21/21 22:00 04/03/21 10:00 Metoprolol Tartrate 25 Mg Tab PO 12.5 mg BID BLANCA Administration Midazolam HCl 2 mg 03/15/21 08:49 03/31/21 21:33 Midazolam 2 Mg/2 Ml Inj IV 2 mg Q2H PRN Administration VENT SYNCHRONY Multi-Ingred Cream/Lotion/Oil/Oint 1 applic 03/10/21 15:39 Mineral Oil/Petrolatum, White Ophth Oint 3.5 Gm OU Q4HR PRN Dry Eye(s) Ondansetron HCl 4 mg 03/09/21 01:26 Ondansetron 4 Mg/2 Ml Inj IV Q8H PRN Nausea And Vomiting Oxycodone HCl 5 mg 03/30/21 12:14 03/31/21 07:45 Oxycodone 5 Mg Tab PO 5 mg Q6H PRN Administration Pain, Moderate (4-6) Phenyleph/Shark Oil/Min Oil/Petrol 1 applic 03/22/21 17:35 03/31/21 18:20 Pe/Mo/Pet,Wh 10 Applic/28 Gm Tube MS 1 applic Q6HR PRN Administration Hemorrhoids Polyethylene Glycol 17 gm 04/02/21 10:00 04/03/21 09:59 Polyethylene Glycol 3350 17 Gm Powder FEEDTUBE 17 gm QDAY BLANCA Administration Prednisone 10 mg 03/29/21 10:00 04/03/21 09:59 Prednisone 10 Mg Tab PO 10 mg DAILY BLANCA Administration Quetiapine Fumarate 300 mg 03/21/21 22:00 04/03/21 09:59 Quetiapine 100 Mg Tab PO 300 mg BID BLANCA Administration Senna/Docusate Sodium 2 tab 04/02/21 10:00 04/03/21 09:59 Sennosides/Docusate Sodium 8.6/50 Mg Tab FEEDTUBE 2 tab BID BLANCA Administration Sodium Chloride 10 ml 03/09/21 10:00 04/03/21 10:35 Sodium Chloride 0.9% 10 Ml Flush Syringe IV 10 ml BID BLANCA Administration Sodium Chloride 10 ml 03/09/21 01:26 04/02/21 21:13 Sodium Chloride 0.9% 10 Ml Flush Syringe IV 10 ml PRN PRN Administration LINE FLUSH Sodium Chloride 10 ml 03/20/21 09:48 Sodium Chloride 0.9% 50 Ml Ivpb IV PRN PRN FLUSH Zinc Sulfate 220 mg 03/10/21 14:00 04/03/21 09:58 Zinc Sulfate 220 Mg Cap PO 220 mg BID BLANCA Administration Nutrition/Malnutrition Assess - Dietary Evaluation Nutrition/Malnutrition Findings: Nutrition Notes Start: 03/09/21 08:49 Freq: Status: Active Protocol: Document 03/31/21 14:51 BRIAN (Rec: 03/31/21 14:52 BRIAN [id number]) Nutrition Notes Initial or Follow up Reassessment Current Diagnosis Diabetes,Sepsis,Hypertension, Respiratory Failure Other Pertinent Diagnosis COVID-19, Bilateral Pneumonia. Current Diet TF-Glucerna 1.2 at 70 ml/hr Labs/Tests Na 140 yesterday Pertinent Medications Lasix, Reglan, Prednisone Height 5 ft 11 in Weight 122 kg Anita Body Weight (kg) 78.18 BMI 37.5 Weight Status Obese Subjective/Other Information Pt remains on vent support. Trach and PEG placed on 03/29. Per RN, pt tolerating TF at goal rate. Percent of energy/protein needs met: 82% energy 78% pro Burn Absent Trauma Absent #1 Nutrition Diagnosis Inadequate oral intake Diagnosis Progress(for reassessment Continues documentation) Is patient on ventilator? Yes Is Patient Ambulatory and/or Out of Bed No REE-([facility]-confined to bed) [phone] Calculation Used for Recommendations 70-80% energy needs Additional Notes Energy needs: 0538-9653 kcal/ day Pro needs 1.3g/kg adjBW: 130g/ day Fluid needs 1ml/kcal Nutrition Intervention Nutrition Support: Continue Glucerna 1.2 at 70ml/ hr with 110ml water flush q4h. Kcal 2,016 Protein (gm) 101 Carbohydrates (gm) 192 Fat (gm) 101 Fluid (mL) 1,352 Fiber (gm) 27 Goal #1 TF tolerance Goal #2 TF to meet at least 75% energy and pro needs Follow-Up By: 04/07/21 Additional Comments F/U: stable TF, vent status, wt
[2021-03-23] MEDS: chlordiazePOXIDE 25 MG CAP PO SCH ×4 (00:56→17:58)
[2021-03-23] MEDS: fentaNYL DRIP Premix 2,000 MCG/100 ML BAG IV SCH ×4 (03:22→22:52)
[2021-03-23] MEDS: INSULIN LISPRO 100 UNIT/ML SUB-Q SCH ×4 (06:34→17:37)
[2021-03-23] MEDS: hydrALAZINE 25 MG TAB PO SCH ×3 (06:47→21:04)
[2021-03-23 07:25] LABS: Hemoglobin 13.4 gm/dl (11.8-15.2); Mean Corpuscular HGB Conc 32 % (32-34); Mean Corpuscular Volume 95 fl (84-94); Platelet Count 191 K/mm3 (140-440); Red Blood Count 4.45 M/mm3 (3.65-5.03); Red Cell Distribution Width 16.1 % (13.2-15.2)
[2021-03-23] MEDS: ARFORMOTEROL 15 MCG/2 ML NEBU IH SCH ×2 (07:51→19:41)
[2021-03-23] MEDS: BUDESONIDE 0.25 MG/2 ML NEBU IH SCH ×2 (07:51→19:41)
[2021-03-23] MEDS: MIDAZOLAM 2 MG/2 ML INJ IV PRN (07:58)
[2021-03-23] MEDS: methylPREDNISolone Sod Succinate 40 MG/1 ML INJ IV SCH ×3 (07:59→21:04)
[2021-03-23 08:10] LABS: Hemolysis Index 0
[2021-03-23 08:24] LABS: BUN/Creatinine Ratio 39
[2021-03-23 08:37] LABS: Blood Urea Nitrogen 31 mg/dL (9-20); Calcium 8.9 mg/dL (8.4-10.2)
[2021-03-23 09:00] LABS: ABG Base Excess 4.8 mmol/L (-2.0-3.0); ABG HCO3 32.2 mmol/L (20.0-26.0); ABG Methemoglobin 0.8 % (0.0-1.5); ABG Oxygen Saturation 98.9 % (95.0-99.0); ABG PCO2 60.4 mm Hg; ABG PH 7.345 pH Units (7.350-7.450); ABG PO2 167.9 mm Hg (80.0-90.0)
[2021-03-23] MEDS: ENOXAPARIN 120 MG/0.8 ML INJ SUB-Q SCH (10:02)
[2021-03-23] MEDS: METOPROLOL TARTRATE 25 MG TAB PO SCH ×2 (10:03→21:03)
[2021-03-23] MEDS: SULFAMETHOXAZOLE/TRIMETHOPRIM 800/160MG DS TAB PO SCH ×2 (10:03→21:05)
[2021-03-23] MEDS: ACETAMINOPHEN 325 MG TAB PO PRN (10:03)
[2021-03-23] MEDS: SENNOSIDES/DOCUSATE SODIUM 8.6/50 MG TAB FEEDTUBE SCH ×2 (10:04→21:03)
[2021-03-23] MEDS: ASCORBIC ACID 500 MG TAB PO SCH ×2 (10:04→21:05)
[2021-03-23] MEDS: FAMOTIDINE 20 MG TAB FEEDTUBE SCH ×2 (10:04→21:05)
[2021-03-23] MEDS: INSULIN GLARGINE 100 UNITS/ML SUB-Q SCH ×2 (10:04→21:07)
[2021-03-23] MEDS: ZINC SULFATE 220 MG CAP PO SCH ×2 (10:04→21:03)
[2021-03-23] MEDS: QUEtiapine 100 MG TAB PO SCH ×2 (10:04→21:05)
--- NOTE | 2021-03-23 12:46 | Electrocardiograph Report ---
[facility] Test Date: 2021-03-16 Test Time: 13:18:22 Pat Name: RAN JONES Department: Room: A258 1 Gender: M [employer]: ELIZABETH : 1960 Requested By: DEBBY ELLISON Order Number: [id number] Reading MD: Serg Sherman Measurements Intervals [place] Rate: 113 P: 31 SD: 149 QRS: -25 QRSD: 91 T: 77 QT: 342 QTc: 469 Interpretive Statements Sinus tachycardia Consider left ventricle hypertrophy Compared to ECG 03/08/2021 21:13:38 No significant change Electronically Signed On 03-23-2021 12:45:53 EST by Serg Sherman
--- NOTE | 2021-03-23 13:14 | Progress Note ---
Assessment and Plan Acute hypoxemic respiratory failure, on continuous noninvasive ventilation COVID-19 infection Bilateral pneumonia History of diabetes Obesity Hypertension Leukocytosis Possible venous thromboembolic phenomena with significantly elevated D-dimers DM II Elevated serum inflammatory markers to include CRP levels, ferritin and LDH - ETT day # 14; will consult surgery for a tracheostomy - repeat lower extremity dopplers; if negative will change to prophylaxis dose anticoagulation - add Doxazosin re: Urinary retention - reduce Hydralazine oral dose re: hypotensive episodes per RN - dicontinued Propofol - resume SBT as tolerated - continue care as below otherwise; - continue Daily SAT and SBT assessment as tolerated - continue to wean supplemental oxygen for target O2 sat's > 90% acutely - VAP bundle addressed - continue lung protective strategies - continue bronchodilators with pulmonary hygiene per RT - wean per pulmonary driven protocols otherwise - continue accuchecks with glycemic control per SSI (While critically ill target blood glucose of 140-180 mg/dL; avoid hypoglycemia) - sedation prn for target RASS 0 to -1 - avoid nephrotoxins, renally dose all medications - avoid benzodiazepine's, reduce the possibility of delirium - AB's per ID rec's - prn analgesia per pain score - Maintenance of sleep-wake cycle, avoid delirium - G.I. & VTE prophylaxis - PT/OT/ROM exercises - mobility protocols for pressure ulcer prophylaxis - Monitor hemodynamics closely - continue other care per attending / other consultants - discharge planning ongoing concurrently COVID SPECIFIC INTERVENTIONS - Remdesivir as per ID/Pulmonary developed protocols (received) - continue systemic steroids for severe COVID-19 infection empirically (Decadron) - follow repeat COVID tests results - zinc and vitamin C supplementation - Monitor inflammatory markers per facility protocol - ferritin, Ddimer, CRP - therapeutic anticoagulation per system Protocol based on d-dimer and clinical considerations (treatment dose) - Continue contact and airborne isolation .... Re-evaluate in am & prn CONDITION: CRITICAL PROGNOSIS: GUARDED CODE STATUS: FULL CODE The high probability of a clinically significant, sudden or life-threatening deterioration of the [respiratory, cardiovascular & hematologic] system(s) required my full and direct attention, intervention and personal management. The aggregate critical care time was [33] minutes without overlap. Time includes spent on; [x] Data Review and interpretation [x] Patient assessment and monitoring of vital signs [x] Documentation [x] Medication orders and management Subjective Date of service: 03/23/21 Principal diagnosis: COVID-19 infection; DM II; Bilateral pneumonia; Obesity; HTN Interval history: Patient is seen today for: Acute hypoxemic respiratory failure; COVID-19 infection; DM II; Bilateral pneumonia; Obesity; HTN Seen and examined at bedside; 24hour events reviewed; nursing and respiratory care staff consulted; no adverse overnight events reported to me; resting in bed; remains on MVS; decompensated acutely this morning and FiO2 increased to 100%; weaning down now and overall much less delirium on Librium; now off Propofol; no seizures; no emesis or overt aspiration Objective Vital Signs - 12hr 03/23/21 03/23/21 03/23/21 01:15 01:30 01:45 Temperature Pulse Rate 104 H 102 H 99 H Pulse Rate [ From Monitor] Respiratory 15 14 12 Rate Blood Pressure 122/60 114/52 109/50 O2 Sat by Pulse 93 89 88 Oximetry 03/23/21 03/23/21 03/23/21 02:00 02:15 02:30 Temperature Pulse Rate 99 H 99 H 98 H Pulse Rate [ From Monitor] Respiratory 12 11 L 14 Rate Blood Pressure 109/50 105/57 111/60 O2 Sat by Pulse 92 90 90 Oximetry 03/23/21 03/23/21 03/23/21 02:45 03:00 03:15 Temperature Pulse Rate 97 H 99 H 97 H Pulse Rate [ From Monitor] Respiratory 15 16 20 Rate Blood Pressure 120/52 114/61 119/65 O2 Sat by Pulse 89 89 91 Oximetry 03/23/21 03/23/21 03/23/21 03:31 03:45 04:00 Temperature 98.4 F Pulse Rate 114 H 109 H 104 H Pulse Rate [ 101 H From Monitor] Respiratory 29 H 23 19 Rate Blood Pressure 161/92 140/65 117/65 O2 Sat by Pulse 91 91 87 Oximetry 03/23/21 03/23/21 03/23/21 04:15 04:30 04:40 Temperature Pulse Rate 101 H 101 H 112 H Pulse Rate [ From Monitor] Respiratory 16 16 Rate Blood Pressure 120/60 119/61 119/61 O2 Sat by Pulse 86 88 90 Oximetry 03/23/21 03/23/21 03/23/21 04:45 05:00 05:15 Temperature Pulse Rate 103 H 103 H Pulse Rate [ From Monitor] Respiratory 17 16 15 Rate Blood Pressure 101/71 107/62 123/60 O2 Sat by Pulse 88 86 90 Oximetry 03/23/21 03/23/21 03/23/21 05:30 05:45 06:00 Temperature Pulse Rate 101 H Pulse Rate [ From Monitor] Respiratory 14 14 14 Rate Blood Pressure 106/64 118/55 127/60 O2 Sat by Pulse 93 90 91 Oximetry 03/23/21 03/23/21 03/23/21 06:15 06:30 06:45 Temperature Pulse Rate 102 H 103 H 112 H Pulse Rate [ From Monitor] Respiratory 14 14 20 Rate Blood Pressure 123/50 106/58 157/90 O2 Sat by Pulse 88 89 92 Oximetry 03/23/21 03/23/21 03/23/21 06:47 07:00 07:15 Temperature Pulse Rate 114 H 120 H 123 H Pulse Rate [ From Monitor] Respiratory 28 H 31 H Rate Blood Pressure 157/90 210/105 206/102 O2 Sat by Pulse 90 88 Oximetry 03/23/21 03/23/21 03/23/21 07:16 07:30 07:45 Temperature 100.4 F H Pulse Rate 123 H 129 H Pulse Rate [ From Monitor] Respiratory 30 H 29 H Rate Blood Pressure 206/102 212/113 O2 Sat by Pulse 89 88 Oximetry 03/23/21 03/23/21 03/23/21 07:51 08:00 08:15 Temperature 100.4 F H Pulse Rate 132 H 134 H 131 H Pulse Rate [ From Monitor] Respiratory 25 H 24 Rate Blood Pressure 212/113 167/88 133/73 O2 Sat by Pulse 90 95 95 Oximetry 03/23/21 03/23/21 03/23/21 08:30 08:45 09:00 Temperature Pulse Rate 129 H 127 H 126 H Pulse Rate [ From Monitor] Respiratory 24 19 20 Rate Blood Pressure 122/77 133/70 135/74 O2 Sat by Pulse 95 95 95 Oximetry 03/23/21 03/23/21 03/23/21 09:15 09:30 09:45 Temperature Pulse Rate 126 H 129 H 132 H Pulse Rate [ From Monitor] Respiratory 21 25 H 25 H Rate Blood Pressure 137/75 149/88 133/91 O2 Sat by Pulse 93 94 95 Oximetry 03/23/21 03/23/21 03/23/21 10:01 10:03 10:15 Temperature Pulse Rate 133 H 133 H 133 H Pulse Rate [ From Monitor] Respiratory 26 H 24 Rate Blood Pressure 156/81 156/81 166/78 O2 Sat by Pulse 94 93 Oximetry 03/23/21 03/23/21 03/23/21 10:30 10:45 11:00 Temperature Pulse Rate 132 H 128 H 124 H Pulse Rate [ From Monitor] Respiratory 19 15 13 Rate Blood Pressure 149/59 149/59 116/63 O2 Sat by Pulse 94 94 94 Oximetry 03/23/21 03/23/21 11:19 11:30 Temperature 99.9 F H Pulse Rate 112 H Pulse Rate [ From Monitor] Respiratory Rate Blood Pressure 114/60 O2 Sat by Pulse 98 Oximetry Constitutional: no acute distress (sedated), other (elderly obese male with mildly increased respiratory effort at rest on MVS) Eyes: non-icteric ENT: oropharynx moist, other (ETT 24 cm CHAITANYA) Neck: supple, no lymphadenopathy, no JVD, other (large circumference) Effort: normal Ascultation: Bilateral: diminished breath sounds, rhonchi Percussion: Bilateral: not dull Cardiovascular: regular rate and rhythm, other (tachycardia, S1,S2) Gastrointestinal: normoactive bowel sounds, soft, non-tender, non-distended (protuberant) Integumentary: normal Extremities: no cyanosis, pulses normal, no ischemia or petechiae, edema Neurologic: non-focal exam (grossly), pupils equal and round, unable to assess, other (sedated) Psychiatric: other (unable to assess re: AMS) CBC and BMP: 03/23/21 07:04 03/23/21 07:04 ABG, PT/INR, D-dimer: ABG ABG pH 7.345 pH Units (7.350-7.450) L 03/23/21 08:35 POC ABG pCO2 71.9 mmHg (32.0-48.0) H 03/12/21 21:54 ABG pCO2 60.4 mm Hg 03/23/21 08:35 POC ABG pO2 53.6 mmHg (83-108) L 03/12/21 21:54 ABG pO2 167.9 mm Hg (80.0-90.0) H 03/23/21 08:35 POC ABG HCO3 30.0 03/12/21 21:54 ABG O2 Saturation 98.9 % (95.0-99.0) 03/23/21 08:35 PT/INR, D-dimer PT 16.1 Sec. (12.2-14.9) H 03/08/21 20:24 INR 1.17 (0.87-1.13) H 03/08/21 20:24 D-Dimer 1359.12 ng/mlDDU (0-234) H 03/17/21 04:40 Abnormal lab findings: Abnormal Labs 03/08/21 03/08/21 03/08/21 20:24 20:24 20:24 WBC 22.6 H RBC 5.44 H Hgb 15.7 H Hct 49.2 H MCV MCHC RDW Lymph % (Auto) [place] % (Auto) [place] # (Auto) Seg Neutrophils % Seg Neuts % (Manual) 83.0 H Lymphocytes % (Manual) 9.0 L Monocytes % (Manual) 8.0 H Nucleated RBC % Seg Neutrophils # Seg Neutrophils # Man 18.8 H Lymphocytes # (Manual) Monocytes # (Manual) 1.8 H PT 16.1 H INR 1.17 H D-Dimer > 07046 H ABG pH POC ABG pCO2 POC ABG pO2 ABG pO2 ABG HCO3 ABG O2 Saturation ABG Base Excess ABG Hemoglobin ABG Oxyhemoglobin ABG Sodium ABG Potassium ABG Glucose Oxyhemoglobin Sodium 136 L Potassium Chloride 93.9 L Carbon Dioxide BUN 29 H Creatinine Glucose 208 H POC Glucose Lactic Acid Phosphorus Magnesium Ferritin Lactate Dehydrogenase 624 H C-Reactive Protein 18.00 H NT-Pro-B Natriuret Pep 1053 H Total Protein Albumin Triglycerides Arterial Blood Glucose Ur Specific [place] Coronavirus (PCR) 03/08/21 03/08/21 03/09/21 20:24 20:24 04:10 WBC RBC Hgb Hct MCV MCHC RDW Lymph % (Auto) [place] % (Auto) [place] # (Auto) Seg Neutrophils % Seg Neuts % (Manual) Lymphocytes % (Manual) Monocytes % (Manual) Nucleated RBC % Seg Neutrophils # Seg Neutrophils # Man Lymphocytes # (Manual) Monocytes # (Manual) PT INR D-Dimer ABG pH POC ABG pCO2 POC ABG pO2 ABG pO2 ABG HCO3 ABG O2 Saturation ABG Base Excess ABG Hemoglobin ABG Oxyhemoglobin ABG Sodium ABG Potassium ABG Glucose Oxyhemoglobin Sodium Potassium Chloride Carbon Dioxide BUN Creatinine Glucose POC Glucose Lactic Acid 2.10 H* Phosphorus Magnesium Ferritin 877.5 H Lactate Dehydrogenase C-Reactive Protein NT-Pro-B Natriuret Pep Total Protein Albumin Triglycerides Arterial Blood Glucose Ur Specific [place] 1.041 H Coronavirus (PCR) 03/09/21 03/09/21 03/09/21 07:46 08:00 13:01 WBC RBC Hgb Hct MCV MCHC RDW Lymph % (Auto) [place] % (Auto) [place] # (Auto) Seg Neutrophils % Seg Neuts % (Manual) Lymphocytes % (Manual) Monocytes % (Manual) Nucleated RBC % Seg Neutrophils # Seg Neutrophils # Man Lymphocytes # (Manual) Monocytes # (Manual) PT INR D-Dimer ABG pH POC ABG pCO2 POC ABG pO2 ABG pO2 ABG HCO3 ABG O2 Saturation ABG Base Excess ABG Hemoglobin ABG Oxyhemoglobin ABG Sodium ABG Potassium ABG Glucose Oxyhemoglobin Sodium Potassium Chloride Carbon Dioxide BUN Creatinine Glucose POC Glucose 191 H 182 H Lactic Acid Phosphorus Magnesium Ferritin Lactate Dehydrogenase C-Reactive Protein NT-Pro-B Natriuret Pep Total Protein Albumin Triglycerides Arterial Blood Glucose Ur Specific [place] Coronavirus (PCR) Positive A 03/09/21 03/09/21 03/09/21 15:19 17:48 18:10 WBC RBC Hgb Hct MCV MCHC RDW Lymph % (Auto) [place] % (Auto) [place] # (Auto) Seg Neutrophils % Seg Neuts % (Manual) Lymphocytes % (Manual) Monocytes % (Manual) Nucleated RBC % Seg Neutrophils # Seg Neutrophils # Man Lymphocytes # (Manual) Monocytes # (Manual) PT INR D-Dimer ABG pH POC ABG pCO2 POC ABG pO2 ABG pO2 47.3 L ABG HCO3 26.3 H ABG O2 Saturation 83.7 L ABG Base Excess ABG Hemoglobin ABG Oxyhemoglobin ABG Sodium ABG Potassium ABG Glucose Oxyhemoglobin 82.1 L Sodium Potassium Chloride Carbon Dioxide BUN 29 H Creatinine Glucose 214 H POC Glucose 194 H Lactic Acid Phosphorus Magnesium Ferritin Lactate Dehydrogenase C-Reactive Protein NT-Pro-B Natriuret Pep Total Protein Albumin 3.4 L Triglycerides Arterial Blood Glucose Ur Specific [place] Coronavirus (PCR) 03/09/21 03/10/21 03/10/21 20:40 04:29 04:29 WBC 20.6 H RBC 5.07 H Hgb Hct 46.2 H MCV MCHC RDW Lymph % (Auto) [place] % (Auto) [place] # (Auto) Seg Neutrophils % Seg Neuts % (Manual) 94.0 H Lymphocytes % (Manual) 1.0 L Monocytes % (Manual) Nucleated RBC % 3.0 H Seg Neutrophils # Seg Neutrophils # Man 19.4 H Lymphocytes # (Manual) 0.2 L Monocytes # (Manual) 1.0 H PT INR D-Dimer ABG pH POC ABG pCO2 POC ABG pO2 ABG pO2 ABG HCO3 ABG O2 Saturation ABG Base Excess ABG Hemoglobin ABG Oxyhemoglobin ABG Sodium ABG Potassium ABG Glucose Oxyhemoglobin Sodium Potassium Chloride Carbon Dioxide BUN 29 H Creatinine Glucose 188 H POC Glucose 176 H Lactic Acid Phosphorus Magnesium Ferritin Lactate Dehydrogenase C-Reactive Protein NT-Pro-B Natriuret Pep Total Protein Albumin 3.3 L Triglycerides Arterial Blood Glucose Ur Specific [place] Coronavirus (PCR) 03/10/21 03/10/21 03/10/21 05:22 10:27 15:25 WBC RBC Hgb Hct MCV MCHC RDW Lymph % (Auto) [place] % (Auto) [place] # (Auto) Seg Neutrophils % Seg Neuts % (Manual) Lymphocytes % (Manual) Monocytes % (Manual) Nucleated RBC % Seg Neutrophils # Seg Neutrophils # Man Lymphocytes # (Manual) Monocytes # (Manual) PT INR D-Dimer ABG pH 7.488 H 7.488 H POC ABG pCO2 POC ABG pO2 ABG pO2 47.7 L 50.5 L ABG HCO3 ABG O2 Saturation 86.2 L 87.9 L ABG Base Excess ABG Hemoglobin ABG Oxyhemoglobin ABG Sodium ABG Potassium ABG Glucose Oxyhemoglobin 84.6 L 86.2 L Sodium Potassium Chloride Carbon Dioxide BUN Creatinine Glucose POC Glucose 155 H Lactic Acid Phosphorus Magnesium Ferritin Lactate Dehydrogenase C-Reactive Protein NT-Pro-B Natriuret Pep Total Protein Albumin Triglycerides Arterial Blood Glucose Ur Specific [place] Coronavirus (PCR) 03/10/21 03/10/21 03/11/21 18:10 18:55 00:07 WBC RBC Hgb Hct MCV MCHC RDW Lymph % (Auto) [place] % (Auto) [place] # (Auto) Seg Neutrophils % Seg Neuts % (Manual) Lymphocytes % (Manual) Monocytes % (Manual) Nucleated RBC % Seg Neutrophils # Seg Neutrophils # Man Lymphocytes # (Manual) Monocytes # (Manual) PT INR D-Dimer ABG pH 7.343 L POC ABG pCO2 POC ABG pO2 ABG pO2 60.4 L ABG HCO3 27.9 H ABG O2 Saturation 88.7 L ABG Base Excess ABG Hemoglobin ABG Oxyhemoglobin ABG Sodium ABG Potassium ABG Glucose Oxyhemoglobin 86.9 L Sodium Potassium Chloride Carbon Dioxide BUN Creatinine Glucose POC Glucose 187 H 139 H Lactic Acid Phosphorus Magnesium Ferritin Lactate Dehydrogenase C-Reactive Protein NT-Pro-B Natriuret Pep Total Protein Albumin Triglycerides Arterial Blood Glucose Ur Specific [place] Coronavirus (PCR) 03/11/21 03/11/21 03/11/21 02:09 04:28 08:06 WBC RBC Hgb Hct MCV MCHC RDW Lymph % (Auto) [place] % (Auto) [place] # (Auto) Seg Neutrophils % Seg Neuts % (Manual) Lymphocytes % (Manual) Monocytes % (Manual) Nucleated RBC % Seg Neutrophils # Seg Neutrophils # Man Lymphocytes # (Manual) Monocytes # (Manual) PT INR D-Dimer ABG pH 7.277 L POC ABG pCO2 55.9 H POC ABG pO2 54.4 L ABG pO2 ABG HCO3 ABG O2 Saturation ABG Base Excess ABG Hemoglobin ABG Oxyhemoglobin 83.0 L ABG Sodium ABG Potassium 4.8 H ABG Glucose 180 H Oxyhemoglobin Sodium Potassium Chloride Carbon Dioxide BUN 38 H Creatinine Glucose 249 H POC Glucose 278 H Lactic Acid Phosphorus Magnesium Ferritin Lactate Dehydrogenase C-Reactive Protein NT-Pro-B Natriuret Pep Total Protein Albumin 3.2 L Triglycerides Arterial Blood Glucose 180 H Ur Specific [place] Coronavirus (PCR) 03/11/21 03/11/21 03/11/21 11:29 15:06 15:48 WBC RBC Hgb Hct MCV MCHC RDW Lymph % (Auto) [place] % (Auto) [place] # (Auto) Seg Neutrophils % Seg Neuts % (Manual) Lymphocytes % (Manual) Monocytes % (Manual) Nucleated RBC % Seg Neutrophils # Seg Neutrophils # Man Lymphocytes # (Manual) Monocytes # (Manual) PT INR D-Dimer ABG pH 7.260 L POC ABG pCO2 POC ABG pO2 ABG pO2 53.5 L ABG HCO3 29.5 H ABG O2 Saturation 84.0 L ABG Base Excess ABG Hemoglobin ABG Oxyhemoglobin ABG Sodium ABG Potassium ABG Glucose Oxyhemoglobin 82.3 L Sodium Potassium Chloride Carbon Dioxide BUN Creatinine Glucose POC Glucose 288 H 295 H Lactic Acid Phosphorus Magnesium Ferritin Lactate Dehydrogenase C-Reactive Protein NT-Pro-B Natriuret Pep Total Protein Albumin Triglycerides Arterial Blood Glucose Ur Specific [place] Coronavirus (PCR) 03/12/21 03/12/21 03/12/21 00:01 05:24 08:03 WBC RBC Hgb Hct MCV MCHC RDW Lymph % (Auto) [place] % (Auto) [place] # (Auto) Seg Neutrophils % Seg Neuts % (Manual) Lymphocytes % (Manual) Monocytes % (Manual) Nucleated RBC % Seg Neutrophils # Seg Neutrophils # Man Lymphocytes # (Manual) Monocytes # (Manual) PT INR D-Dimer ABG pH POC ABG pCO2 POC ABG pO2 ABG pO2 ABG HCO3 ABG O2 Saturation ABG Base Excess ABG Hemoglobin ABG Oxyhemoglobin ABG Sodium ABG Potassium ABG Glucose Oxyhemoglobin Sodium 135 L Potassium Chloride Carbon Dioxide BUN 48 H Creatinine Glucose 358 H POC Glucose 304 H 310 H Lactic Acid Phosphorus Magnesium Ferritin Lactate Dehydrogenase C-Reactive Protein NT-Pro-B Natriuret Pep Total Protein 6.0 L Albumin 2.9 L Triglycerides Arterial Blood Glucose Ur Specific [place] Coronavirus (PCR) 03/12/21 03/12/21 03/12/21 08:03 10:43 11:31 WBC 14.6 H RBC Hgb Hct MCV MCHC RDW Lymph % (Auto) [place] % (Auto) [place] # (Auto) Seg Neutrophils % Seg Neuts % (Manual) Lymphocytes % (Manual) Monocytes % (Manual) Nucleated RBC % Seg Neutrophils # Seg Neutrophils # Man Lymphocytes # (Manual) Monocytes # (Manual) PT INR D-Dimer ABG pH 7.248 L POC ABG pCO2 POC ABG pO2 ABG pO2 73.7 L ABG HCO3 32.0 H ABG O2 Saturation 93.9 L ABG Base Excess ABG Hemoglobin ABG Oxyhemoglobin ABG Sodium ABG Potassium ABG Glucose Oxyhemoglobin 92.1 L Sodium Potassium Chloride Carbon Dioxide BUN Creatinine Glucose POC Glucose 359 H Lactic Acid Phosphorus Magnesium Ferritin Lactate Dehydrogenase C-Reactive Protein NT-Pro-B Natriuret Pep Total Protein Albumin Triglycerides Arterial Blood Glucose Ur Specific [place] Coronavirus (PCR) 03/12/21 03/12/21 03/13/21 17:20 21:54 00:02 WBC RBC Hgb Hct MCV MCHC RDW Lymph % (Auto) [place] % (Auto) [place] # (Auto) Seg Neutrophils % Seg Neuts % (Manual) Lymphocytes % (Manual) Monocytes % (Manual) Nucleated RBC % Seg Neutrophils # Seg Neutrophils # Man Lymphocytes # (Manual) Monocytes # (Manual) PT INR D-Dimer ABG pH 7.238 L POC ABG pCO2 71.9 H POC ABG pO2 53.6 L ABG pO2 ABG HCO3 ABG O2 Saturation ABG Base Excess ABG Hemoglobin ABG Oxyhemoglobin 84.8 L ABG Sodium 134.2 L ABG Potassium 4.9 H ABG Glucose 306 H Oxyhemoglobin Sodium Potassium Chloride Carbon Dioxide BUN Creatinine Glucose POC Glucose 374 H 308 H Lactic Acid Phosphorus Magnesium Ferritin Lactate Dehydrogenase C-Reactive Protein NT-Pro-B Natriuret Pep Total Protein Albumin Triglycerides Arterial Blood Glucose 306 H Ur Specific [place] Coronavirus (PCR) 03/13/21 03/13/21 03/13/21 05:22 05:44 05:44 WBC 13.9 H RBC Hgb Hct MCV MCHC RDW Lymph % (Auto) [place] % (Auto) [place] # (Auto) Seg Neutrophils % Seg Neuts % (Manual) Lymphocytes % (Manual) Monocytes % (Manual) Nucleated RBC % Seg Neutrophils # Seg Neutrophils # Man Lymphocytes # (Manual) Monocytes # (Manual) PT INR D-Dimer 3567.97 H ABG pH POC ABG pCO2 POC ABG pO2 ABG pO2 ABG HCO3 ABG O2 Saturation ABG Base Excess ABG Hemoglobin ABG Oxyhemoglobin ABG Sodium ABG Potassium ABG Glucose Oxyhemoglobin Sodium Potassium Chloride Carbon Dioxide BUN Creatinine Glucose POC Glucose 316 H Lactic Acid Phosphorus Magnesium Ferritin Lactate Dehydrogenase C-Reactive Protein NT-Pro-B Natriuret Pep Total Protein Albumin Triglycerides Arterial Blood Glucose Ur Specific [place] Coronavirus (PCR) 03/13/21 03/13/21 03/13/21 05:44 05:44 11:15 WBC RBC Hgb Hct MCV MCHC RDW Lymph % (Auto) [place] % (Auto) [place] # (Auto) Seg Neutrophils % Seg Neuts % (Manual) Lymphocytes % (Manual) Monocytes % (Manual) Nucleated RBC % Seg Neutrophils # Seg Neutrophils # Man Lymphocytes # (Manual) Monocytes # (Manual) PT INR D-Dimer ABG pH 7.310 L POC ABG pCO2 POC ABG pO2 ABG pO2 52.3 L ABG HCO3 34.1 H ABG O2 Saturation 86.8 L ABG Base Excess 5.5 H ABG Hemoglobin 13.8 L ABG Oxyhemoglobin ABG Sodium ABG Potassium ABG Glucose Oxyhemoglobin 85.1 L Sodium Potassium Chloride Carbon Dioxide BUN Creatinine Glucose POC Glucose Lactic Acid Phosphorus Magnesium Ferritin 858.7 H Lactate Dehydrogenase 348 H C-Reactive Protein 2.80 H NT-Pro-B Natriuret Pep Total Protein Albumin Triglycerides Arterial Blood Glucose Ur Specific [place] Coronavirus (PCR) 03/13/21 03/13/21 03/13/21 11:21 15:47 19:23 WBC RBC Hgb Hct MCV MCHC RDW Lymph % (Auto) [place] % (Auto) [place] # (Auto) Seg Neutrophils % Seg Neuts % (Manual) Lymphocytes % (Manual) Monocytes % (Manual) Nucleated RBC % Seg Neutrophils # Seg Neutrophils # Man Lymphocytes # (Manual) Monocytes # (Manual) PT INR D-Dimer ABG pH POC ABG pCO2 POC ABG pO2 ABG pO2 ABG HCO3 ABG O2 Saturation ABG Base Excess ABG Hemoglobin ABG Oxyhemoglobin ABG Sodium ABG Potassium ABG Glucose Oxyhemoglobin Sodium 136 L Potassium 5.9 H Chloride Carbon Dioxide BUN 50 H Creatinine Glucose 397 H POC Glucose 322 H 317 H Lactic Acid Phosphorus Magnesium Ferritin Lactate Dehydrogenase C-Reactive Protein NT-Pro-B Natriuret Pep Total Protein Albumin Triglycerides Arterial Blood Glucose Ur Specific [place] Coronavirus (PCR) 03/13/21 03/14/21 03/14/21 23:46 05:32 05:50 WBC 11.6 H RBC Hgb Hct MCV MCHC RDW Lymph % (Auto) [place] % (Auto) [place] # (Auto) Seg Neutrophils % Seg Neuts % (Manual) Lymphocytes % (Manual) Monocytes % (Manual) Nucleated RBC % Seg Neutrophils # Seg Neutrophils # Man Lymphocytes # (Manual) Monocytes # (Manual) PT INR D-Dimer ABG pH POC ABG pCO2 POC ABG pO2 ABG pO2 ABG HCO3 ABG O2 Saturation ABG Base Excess ABG Hemoglobin ABG Oxyhemoglobin ABG Sodium ABG Potassium ABG Glucose Oxyhemoglobin Sodium Potassium Chloride Carbon Dioxide BUN Creatinine Glucose POC Glucose 332 H 316 H Lactic Acid Phosphorus Magnesium Ferritin Lactate Dehydrogenase C-Reactive Protein NT-Pro-B Natriuret Pep Total Protein Albumin Triglycerides Arterial Blood Glucose Ur Specific [place] Coronavirus (PCR) 03/14/21 03/14/21 03/14/21 05:50 11:33 16:53 WBC RBC Hgb Hct MCV MCHC RDW Lymph % (Auto) [place] % (Auto) [place] # (Auto) Seg Neutrophils % Seg Neuts % (Manual) Lymphocytes % (Manual) Monocytes % (Manual) Nucleated RBC % Seg Neutrophils # Seg Neutrophils # Man Lymphocytes # (Manual) Monocytes # (Manual) PT INR D-Dimer ABG pH POC ABG pCO2 POC ABG pO2 ABG pO2 ABG HCO3 ABG O2 Saturation ABG Base Excess ABG Hemoglobin ABG Oxyhemoglobin ABG Sodium ABG Potassium ABG Glucose Oxyhemoglobin Sodium Potassium 5.9 H Chloride Carbon Dioxide 31 H BUN 48 H Creatinine Glucose 380 H POC Glucose 315 H 235 H Lactic Acid Phosphorus Magnesium 3.40 H Ferritin Lactate Dehydrogenase C-Reactive Protein NT-Pro-B Natriuret Pep Total Protein Albumin Triglycerides Arterial Blood Glucose Ur Specific [place] Coronavirus (PCR) 03/14/21 03/14/21 03/15/21 18:34 23:27 01:22 WBC RBC Hgb Hct 46.3 H MCV MCHC RDW Lymph % (Auto) [place] % (Auto) [place] # (Auto) Seg Neutrophils % Seg Neuts % (Manual) Lymphocytes % (Manual) Monocytes % (Manual) Nucleated RBC % Seg Neutrophils # Seg Neutrophils # Man Lymphocytes # (Manual) Monocytes # (Manual) PT INR D-Dimer ABG pH POC ABG pCO2 POC ABG pO2 ABG pO2 ABG HCO3 ABG O2 Saturation ABG Base Excess ABG Hemoglobin ABG Oxyhemoglobin ABG Sodium ABG Potassium ABG Glucose Oxyhemoglobin Sodium 146 H Potassium Chloride Carbon Dioxide 34 H BUN 49 H Creatinine Glucose 285 H POC Glucose 203 H Lactic Acid Phosphorus Magnesium Ferritin Lactate Dehydrogenase C-Reactive Protein NT-Pro-B Natriuret Pep Total Protein Albumin Triglycerides Arterial Blood Glucose Ur Specific [place] Coronavirus (PCR) 03/15/21 03/15/21 03/15/21 04:00 06:06 06:06 WBC RBC Hgb Hct MCV MCHC RDW Lymph % (Auto) [place] % (Auto) [place] # (Auto) Seg Neutrophils % Seg Neuts % (Manual) Lymphocytes % (Manual) Monocytes % (Manual) Nucleated RBC % Seg Neutrophils # Seg Neutrophils # Man Lymphocytes # (Manual) Monocytes # (Manual) PT INR D-Dimer 1781.79 H ABG pH POC ABG pCO2 POC ABG pO2 ABG pO2 ABG HCO3 ABG O2 Saturation ABG Base Excess ABG Hemoglobin ABG Oxyhemoglobin ABG Sodium ABG Potassium ABG Glucose Oxyhemoglobin Sodium 148 H Potassium 5.7 H D Chloride 108.0 H Carbon Dioxide 31 H BUN 46 H Creatinine Glucose 139 H POC Glucose Lactic Acid Phosphorus 4.80 H D Magnesium 3.00 H Ferritin 976.4 H Lactate Dehydrogenase 630 H C-Reactive Protein NT-Pro-B Natriuret Pep Total Protein Albumin Triglycerides Arterial Blood Glucose Ur Specific [place] Coronavirus (PCR) 03/15/21 03/15/21 03/15/21 11:56 14:05 17:09 WBC RBC Hgb Hct MCV MCHC RDW Lymph % (Auto) [place] % (Auto) [place] # (Auto) Seg Neutrophils % Seg Neuts % (Manual) Lymphocytes % (Manual) Monocytes % (Manual) Nucleated RBC % Seg Neutrophils # Seg Neutrophils # Man Lymphocytes # (Manual) Monocytes # (Manual) PT INR D-Dimer ABG pH POC ABG pCO2 POC ABG pO2 ABG pO2 52.1 L ABG HCO3 36.6 H ABG O2 Saturation 87.6 L ABG Base Excess 9.5 H ABG Hemoglobin ABG Oxyhemoglobin ABG Sodium ABG Potassium ABG Glucose Oxyhemoglobin 85.7 L Sodium Potassium Chloride Carbon Dioxide BUN Creatinine Glucose POC Glucose 219 H 263 H Lactic Acid Phosphorus Magnesium Ferritin Lactate Dehydrogenase C-Reactive Protein NT-Pro-B Natriuret Pep Total Protein Albumin Triglycerides Arterial Blood Glucose Ur Specific [place] Coronavirus (PCR) 03/16/21 03/16/21 03/16/21 00:32 04:11 04:11 WBC 11.9 H RBC Hgb Hct MCV MCHC 30 L RDW Lymph % (Auto) [place] % (Auto) [place] # (Auto) Seg Neutrophils % Seg Neuts % (Manual) Lymphocytes % (Manual) Monocytes % (Manual) Nucleated RBC % Seg Neutrophils # Seg Neutrophils # Man Lymphocytes # (Manual) Monocytes # (Manual) PT INR D-Dimer ABG pH POC ABG pCO2 POC ABG pO2 ABG pO2 ABG HCO3 ABG O2 Saturation ABG Base Excess ABG Hemoglobin ABG Oxyhemoglobin ABG Sodium ABG Potassium ABG Glucose Oxyhemoglobin Sodium 151 H Potassium Chloride Carbon Dioxide 35 H BUN 48 H Creatinine Glucose 152 H POC Glucose 165 H Lactic Acid Phosphorus Magnesium Ferritin Lactate Dehydrogenase C-Reactive Protein NT-Pro-B Natriuret Pep Total Protein Albumin Triglycerides Arterial Blood Glucose Ur Specific [place] Coronavirus (PCR) 0103/16/21 03/16/21 04:11 05:26 11:35 WBC RBC Hgb Hct MCV MCHC RDW Lymph % (Auto) [place] % (Auto) [place] # (Auto) Seg Neutrophils % Seg Neuts % (Manual) Lymphocytes % (Manual) Monocytes % (Manual) Nucleated RBC % Seg Neutrophils # Seg Neutrophils # Man Lymphocytes # (Manual) Monocytes # (Manual) PT INR D-Dimer ABG pH POC ABG pCO2 POC ABG pO2 ABG pO2 ABG HCO3 ABG O2 Saturation ABG Base Excess ABG Hemoglobin ABG Oxyhemoglobin ABG Sodium ABG Potassium ABG Glucose Oxyhemoglobin Sodium Potassium Chloride Carbon Dioxide BUN Creatinine Glucose POC Glucose 162 H 187 H Lactic Acid Phosphorus Magnesium Ferritin Lactate Dehydrogenase C-Reactive Protein NT-Pro-B Natriuret Pep Total Protein Albumin Triglycerides 267 H Arterial Blood Glucose Ur Specific [place] Coronavirus (PCR) 03/16/21 03/16/21 03/16/21 17:29 22:25 23:22 WBC RBC Hgb Hct MCV MCHC RDW Lymph % (Auto) [place] % (Auto) [place] # (Auto) Seg Neutrophils % Seg Neuts % (Manual) Lymphocytes % (Manual) Monocytes % (Manual) Nucleated RBC % Seg Neutrophils # Seg Neutrophils # Man Lymphocytes # (Manual) Monocytes # (Manual) PT INR D-Dimer ABG pH POC ABG pCO2 POC ABG pO2 ABG pO2 ABG HCO3 ABG O2 Saturation ABG Base Excess ABG Hemoglobin ABG Oxyhemoglobin ABG Sodium ABG Potassium ABG Glucose Oxyhemoglobin Sodium Potassium Chloride Carbon Dioxide BUN Creatinine Glucose POC Glucose 237 H 165 H 189 H Lactic Acid Phosphorus Magnesium Ferritin Lactate Dehydrogenase C-Reactive Protein NT-Pro-B Natriuret Pep Total Protein Albumin Triglycerides Arterial Blood Glucose Ur Specific [place] Coronavirus (PCR) 03/17/21 03/17/21 03/17/21 04:40 04:40 04:40 WBC 14.1 H RBC Hgb Hct MCV MCHC RDW 15.3 H Lymph % (Auto) 12.6 L [place] % (Auto) 11.3 H [place] # (Auto) 1.6 H Seg Neutrophils % 74.9 H Seg Neuts % (Manual) Lymphocytes % (Manual) Monocytes % (Manual) Nucleated RBC % Seg Neutrophils # 10.5 H Seg Neutrophils # Man Lymphocytes # (Manual) Monocytes # (Manual) PT INR D-Dimer 1359.12 H ABG pH POC ABG pCO2 POC ABG pO2 ABG pO2 ABG HCO3 ABG O2 Saturation ABG Base Excess ABG Hemoglobin ABG Oxyhemoglobin ABG Sodium ABG Potassium ABG Glucose Oxyhemoglobin Sodium 148 H Potassium Chloride 107.5 H Carbon Dioxide 33 H BUN 42 H Creatinine Glucose 183 H POC Glucose Lactic Acid Phosphorus Magnesium 2.70 H Ferritin Lactate Dehydrogenase C-Reactive Protein NT-Pro-B Natriuret Pep Total Protein Albumin Triglycerides Arterial Blood Glucose Ur Specific [place] Coronavirus (PCR) 03/17/21 03/17/21 03/17/21 05:53 11:05 11:51 WBC RBC Hgb Hct MCV MCHC RDW Lymph % (Auto) [place] % (Auto) [place] # (Auto) Seg Neutrophils % Seg Neuts % (Manual) Lymphocytes % (Manual) Monocytes % (Manual) Nucleated RBC % Seg Neutrophils # Seg Neutrophils # Man Lymphocytes # (Manual) Monocytes # (Manual) PT INR D-Dimer ABG pH POC ABG pCO2 POC ABG pO2 ABG pO2 ABG HCO3 35.7 H ABG O2 Saturation ABG Base Excess 8.7 H ABG Hemoglobin ABG Oxyhemoglobin ABG Sodium ABG Potassium ABG Glucose Oxyhemoglobin 94.2 L Sodium Potassium Chloride Carbon Dioxide BUN Creatinine Glucose POC Glucose 176 H 197 H Lactic Acid Phosphorus Magnesium Ferritin Lactate Dehydrogenase C-Reactive Protein NT-Pro-B Natriuret Pep Total Protein Albumin Triglycerides Arterial Blood Glucose Ur Specific [place] Coronavirus (PCR) 03/17/21 03/17/21 03/17/21 16:54 21:10 23:33 WBC RBC Hgb Hct MCV MCHC RDW Lymph % (Auto) [place] % (Auto) [place] # (Auto) Seg Neutrophils % Seg Neuts % (Manual) Lymphocytes % (Manual) Monocytes % (Manual) Nucleated RBC % Seg Neutrophils # Seg Neutrophils # Man Lymphocytes # (Manual) Monocytes # (Manual) PT INR D-Dimer ABG pH POC ABG pCO2 POC ABG pO2 ABG pO2 ABG HCO3 ABG O2 Saturation ABG Base Excess ABG Hemoglobin ABG Oxyhemoglobin ABG Sodium ABG Potassium ABG Glucose Oxyhemoglobin Sodium Potassium Chloride Carbon Dioxide BUN Creatinine Glucose POC Glucose 135 H 160 H 138 H Lactic Acid Phosphorus Magnesium Ferritin Lactate Dehydrogenase C-Reactive Protein NT-Pro-B Natriuret Pep Total Protein Albumin Triglycerides Arterial Blood Glucose Ur Specific [place] Coronavirus (PCR) 03/18/21 03/18/21 03/18/21 04:18 04:50 05:43 WBC RBC Hgb Hct MCV MCHC RDW Lymph % (Auto) [place] % (Auto) [place] # (Auto) Seg Neutrophils % Seg Neuts % (Manual) Lymphocytes % (Manual) Monocytes % (Manual) Nucleated RBC % Seg Neutrophils # Seg Neutrophils # Man Lymphocytes # (Manual) Monocytes # (Manual) PT INR D-Dimer ABG pH POC ABG pCO2 POC ABG pO2 ABG pO2 59.8 L ABG HCO3 36.5 H ABG O2 Saturation 90.7 L ABG Base Excess 9.4 H ABG Hemoglobin 12.0 L ABG Oxyhemoglobin ABG Sodium ABG Potassium ABG Glucose Oxyhemoglobin 88.9 L Sodium Potassium Chloride 107.2 H Carbon Dioxide 34 H BUN 38 H Creatinine 0.7 L Glucose 136 H POC Glucose 128 H Lactic Acid Phosphorus Magnesium Ferritin Lactate Dehydrogenase C-Reactive Protein NT-Pro-B Natriuret Pep Total Protein Albumin Triglycerides Arterial Blood Glucose Ur Specific [place] Coronavirus (PCR) 03/18/21 03/18/21 03/18/21 11:20 17:35 23:35 WBC RBC Hgb Hct MCV MCHC RDW Lymph % (Auto) [place] % (Auto) [place] # (Auto) Seg Neutrophils % Seg Neuts % (Manual) Lymphocytes % (Manual) Monocytes % (Manual) Nucleated RBC % Seg Neutrophils # Seg Neutrophils # Man Lymphocytes # (Manual) Monocytes # (Manual) PT INR D-Dimer ABG pH POC ABG pCO2 POC ABG pO2 ABG pO2 70.7 L ABG HCO3 33.6 H ABG O2 Saturation ABG Base Excess 8.0 H ABG Hemoglobin ABG Oxyhemoglobin ABG Sodium ABG Potassium ABG Glucose Oxyhemoglobin 93.7 L Sodium Potassium Chloride Carbon Dioxide BUN Creatinine Glucose POC Glucose 189 H 144 H Lactic Acid Phosphorus Magnesium Ferritin Lactate Dehydrogenase C-Reactive Protein NT-Pro-B Natriuret Pep Total Protein Albumin Triglycerides Arterial Blood Glucose Ur Specific [place] Coronavirus (PCR) 03/19/21 03/19/21 03/19/21 02:35 04:20 04:20 WBC 14.0 H RBC Hgb Hct MCV MCHC RDW Lymph % (Auto) [place] % (Auto) [place] # (Auto) Seg Neutrophils % Seg Neuts % (Manual) Lymphocytes % (Manual) Monocytes % (Manual) Nucleated RBC % Seg Neutrophils # Seg Neutrophils # Man Lymphocytes # (Manual) Monocytes # (Manual) PT INR D-Dimer ABG pH POC ABG pCO2 POC ABG pO2 ABG pO2 ABG HCO3 32.0 H ABG O2 Saturation ABG Base Excess 5.2 H ABG Hemoglobin 13.6 L ABG Oxyhemoglobin ABG Sodium ABG Potassium ABG Glucose Oxyhemoglobin 94.6 L Sodium 146 H Potassium Chloride 109.3 H Carbon Dioxide BUN 36 H Creatinine Glucose 203 H POC Glucose Lactic Acid Phosphorus Magnesium Ferritin Lactate Dehydrogenase C-Reactive Protein NT-Pro-B Natriuret Pep Total Protein Albumin Triglycerides 254 H Arterial Blood Glucose Ur Specific [place] Coronavirus (PCR) 03/19/21 03/19/21 03/19/21 05:45 11:36 23:51 WBC RBC Hgb Hct MCV MCHC RDW Lymph % (Auto) [place] % (Auto) [place] # (Auto) Seg Neutrophils % Seg Neuts % (Manual) Lymphocytes % (Manual) Monocytes % (Manual) Nucleated RBC % Seg Neutrophils # Seg Neutrophils # Man Lymphocytes # (Manual) Monocytes # (Manual) PT INR D-Dimer ABG pH POC ABG pCO2 POC ABG pO2 ABG pO2 ABG HCO3 ABG O2 Saturation ABG Base Excess ABG Hemoglobin ABG Oxyhemoglobin ABG Sodium ABG Potassium ABG Glucose Oxyhemoglobin Sodium Potassium Chloride Carbon Dioxide BUN Creatinine Glucose POC Glucose 164 H 172 H 140 H Lactic Acid Phosphorus Magnesium Ferritin Lactate Dehydrogenase C-Reactive Protein NT-Pro-B Natriuret Pep Total Protein Albumin Triglycerides Arterial Blood Glucose Ur Specific [place] Coronavirus (PCR) 03/20/21 03/20/21 03/20/21 03:29 04:45 04:45 WBC RBC Hgb Hct MCV 95 H MCHC RDW 15.7 H Lymph % (Auto) [place] % (Auto) [place] # (Auto) Seg Neutrophils % Seg Neuts % (Manual) Lymphocytes % (Manual) Monocytes % (Manual) Nucleated RBC % Seg Neutrophils # Seg Neutrophils # Man Lymphocytes # (Manual) Monocytes # (Manual) PT INR D-Dimer ABG pH 7.349 L POC ABG pCO2 POC ABG pO2 ABG pO2 ABG HCO3 33.7 H ABG O2 Saturation ABG Base Excess 6.4 H ABG Hemoglobin 11.8 L ABG Oxyhemoglobin ABG Sodium ABG Potassium ABG Glucose Oxyhemoglobin 93.9 L Sodium 146 H Potassium 5.5 H Chloride 111.1 H Carbon Dioxide BUN 34 H Creatinine 0.7 L Glucose 145 H POC Glucose Lactic Acid Phosphorus Magnesium 2.50 H Ferritin Lactate Dehydrogenase C-Reactive Protein NT-Pro-B Natriuret Pep Total Protein Albumin Triglycerides Arterial Blood Glucose Ur Specific [place] Coronavirus (PCR) 03/20/21 03/20/21 03/20/21 05:41 09:08 11:54 WBC RBC Hgb Hct MCV MCHC RDW Lymph % (Auto) [place] % (Auto) [place] # (Auto) Seg Neutrophils % Seg Neuts % (Manual) Lymphocytes % (Manual) Monocytes % (Manual) Nucleated RBC % Seg Neutrophils # Seg Neutrophils # Man Lymphocytes # (Manual) Monocytes # (Manual) PT INR D-Dimer ABG pH POC ABG pCO2 POC ABG pO2 ABG pO2 ABG HCO3 ABG O2 Saturation ABG Base Excess ABG Hemoglobin ABG Oxyhemoglobin ABG Sodium ABG Potassium ABG Glucose Oxyhemoglobin Sodium Potassium Chloride Carbon Dioxide BUN Creatinine Glucose POC Glucose 108 H 132 H 162 H Lactic Acid Phosphorus Magnesium Ferritin Lactate Dehydrogenase C-Reactive Protein NT-Pro-B Natriuret Pep Total Protein Albumin Triglycerides Arterial Blood Glucose Ur Specific [place] Coronavirus (PCR) 03/20/21 03/21/21 03/21/21 17:28 00:31 04:44 WBC RBC Hgb Hct MCV MCHC RDW Lymph % (Auto) [place] % (Auto) [place] # (Auto) Seg Neutrophils % Seg Neuts % (Manual) Lymphocytes % (Manual) Monocytes % (Manual) Nucleated RBC % Seg Neutrophils # Seg Neutrophils # Man Lymphocytes # (Manual) Monocytes # (Manual) PT INR D-Dimer ABG pH POC ABG pCO2 POC ABG pO2 ABG pO2 ABG HCO3 ABG O2 Saturation ABG Base Excess ABG Hemoglobin ABG Oxyhemoglobin ABG Sodium ABG Potassium ABG Glucose Oxyhemoglobin Sodium Potassium Chloride 108.3 H Carbon Dioxide BUN 30 H Creatinine 0.7 L Glucose POC Glucose 160 H 122 H Lactic Acid Phosphorus Magnesium Ferritin Lactate Dehydrogenase C-Reactive Protein NT-Pro-B Natriuret Pep Total Protein Albumin Triglycerides Arterial Blood Glucose Ur Specific [place] Coronavirus (PCR) 03/21/21 03/21/21 03/21/21 09:18 10:09 13:20 WBC RBC Hgb Hct MCV MCHC RDW Lymph % (Auto) [place] % (Auto) [place] # (Auto) Seg Neutrophils % Seg Neuts % (Manual) Lymphocytes % (Manual) Monocytes % (Manual) Nucleated RBC % Seg Neutrophils # Seg Neutrophils # Man Lymphocytes # (Manual) Monocytes # (Manual) PT INR D-Dimer ABG pH POC ABG pCO2 POC ABG pO2 ABG pO2 60.7 L ABG HCO3 30.6 H ABG O2 Saturation 93.6 L ABG Base Excess 5.3 H ABG Hemoglobin ABG Oxyhemoglobin ABG Sodium ABG Potassium ABG Glucose Oxyhemoglobin 91.7 L Sodium Potassium Chloride Carbon Dioxide BUN Creatinine Glucose POC Glucose 169 H 122 H Lactic Acid Phosphorus Magnesium Ferritin Lactate Dehydrogenase C-Reactive Protein NT-Pro-B Natriuret Pep Total Protein Albumin Triglycerides Arterial Blood Glucose Ur Specific [place] Coronavirus (PCR) 03/21/21 03/21/21 03/21/21 17:25 22:41 23:52 WBC RBC Hgb Hct MCV MCHC RDW Lymph % (Auto) [place] % (Auto) [place] # (Auto) Seg Neutrophils % Seg Neuts % (Manual) Lymphocytes % (Manual) Monocytes % (Manual) Nucleated RBC % Seg Neutrophils # Seg Neutrophils # Man Lymphocytes # (Manual) Monocytes # (Manual) PT INR D-Dimer ABG pH POC ABG pCO2 POC ABG pO2 ABG pO2 ABG HCO3 ABG O2 Saturation ABG Base Excess ABG Hemoglobin ABG Oxyhemoglobin ABG Sodium ABG Potassium ABG Glucose Oxyhemoglobin Sodium Potassium Chloride Carbon Dioxide BUN Creatinine Glucose POC Glucose 121 H 139 H 140 H Lactic Acid Phosphorus Magnesium Ferritin Lactate Dehydrogenase C-Reactive Protein NT-Pro-B Natriuret Pep Total Protein Albumin Triglycerides Arterial Blood Glucose Ur Specific [place] Coronavirus (PCR) 03/22/21 03/22/21 03/22/21 05:58 07:26 07:26 WBC RBC Hgb Hct MCV MCHC 31 L RDW 16.1 H Lymph % (Auto) [place] % (Auto) [place] # (Auto) Seg Neutrophils % Seg Neuts % (Manual) Lymphocytes % (Manual) Monocytes % (Manual) Nucleated RBC % Seg Neutrophils # Seg Neutrophils # Man Lymphocytes # (Manual) Monocytes # (Manual) PT INR D-Dimer ABG pH POC ABG pCO2 POC ABG pO2 ABG pO2 ABG HCO3 ABG O2 Saturation ABG Base Excess ABG Hemoglobin ABG Oxyhemoglobin ABG Sodium ABG Potassium ABG Glucose Oxyhemoglobin Sodium Potassium Chloride 108.5 H Carbon Dioxide BUN 44 H Creatinine Glucose 120 H POC Glucose 131 H Lactic Acid Phosphorus 5.80 H Magnesium 2.80 H Ferritin Lactate Dehydrogenase C-Reactive Protein NT-Pro-B Natriuret Pep Total Protein Albumin Triglycerides 305 H Arterial Blood Glucose Ur Specific [place] Coronavirus (PCR) 03/22/21 03/22/21 03/22/21 09:38 11:15 16:01 WBC RBC Hgb Hct MCV MCHC RDW Lymph % (Auto) [place] % (Auto) [place] # (Auto) Seg Neutrophils % Seg Neuts % (Manual) Lymphocytes % (Manual) Monocytes % (Manual) Nucleated RBC % Seg Neutrophils # Seg Neutrophils # Man Lymphocytes # (Manual) Monocytes # (Manual) PT INR D-Dimer ABG pH POC ABG pCO2 POC ABG pO2 ABG pO2 70.0 L ABG HCO3 30.0 H ABG O2 Saturation 94.6 L ABG Base Excess 3.6 H ABG Hemoglobin 13.5 L ABG Oxyhemoglobin ABG Sodium ABG Potassium ABG Glucose Oxyhemoglobin 92.5 L Sodium Potassium Chloride Carbon Dioxide BUN Creatinine Glucose POC Glucose 186 H 148 H Lactic Acid Phosphorus Magnesium Ferritin Lactate Dehydrogenase C-Reactive Protein NT-Pro-B Natriuret Pep Total Protein Albumin Triglycerides Arterial Blood Glucose Ur Specific [place] Coronavirus (PCR) 03/22/21 03/22/21 03/23/21 21:13 23:48 07:04 WBC 11.7 H RBC Hgb Hct MCV 95 H MCHC RDW 16.1 H Lymph % (Auto) [place] % (Auto) [place] # (Auto) Seg Neutrophils % Seg Neuts % (Manual) Lymphocytes % (Manual) Monocytes % (Manual) Nucleated RBC % Seg Neutrophils # Seg Neutrophils # Man Lymphocytes # (Manual) Monocytes # (Manual) PT INR D-Dimer ABG pH POC ABG pCO2 POC ABG pO2 ABG pO2 ABG HCO3 ABG O2 Saturation ABG Base Excess ABG Hemoglobin ABG Oxyhemoglobin ABG Sodium ABG Potassium ABG Glucose Oxyhemoglobin Sodium Potassium Chloride Carbon Dioxide BUN Creatinine Glucose POC Glucose 121 H 114 H Lactic Acid Phosphorus Magnesium Ferritin Lactate Dehydrogenase C-Reactive Protein NT-Pro-B Natriuret Pep Total Protein Albumin Triglycerides Arterial Blood Glucose Ur Specific [place] Coronavirus (PCR) 03/23/21 03/23/21 03/23/21 07:04 08:35 11:19 WBC RBC Hgb Hct MCV MCHC RDW Lymph % (Auto) [place] % (Auto) [place] # (Auto) Seg Neutrophils % Seg Neuts % (Manual) Lymphocytes % (Manual) Monocytes % (Manual) Nucleated RBC % Seg Neutrophils # Seg Neutrophils # Man Lymphocytes # (Manual) Monocytes # (Manual) PT INR D-Dimer ABG pH 7.345 L POC ABG pCO2 POC ABG pO2 ABG pO2 167.9 H ABG HCO3 32.2 H ABG O2 Saturation ABG Base Excess 4.8 H ABG Hemoglobin 13.4 L ABG Oxyhemoglobin ABG Sodium ABG Potassium ABG Glucose Oxyhemoglobin Sodium 148 H Potassium Chloride 111.3 H Carbon Dioxide 31 H BUN 31 H Creatinine Glucose 131 H POC Glucose 165 H Lactic Acid Phosphorus Magnesium 2.50 H Ferritin Lactate Dehydrogenase C-Reactive Protein NT-Pro-B Natriuret Pep Total Protein Albumin Triglycerides Arterial Blood Glucose Ur Specific [place] Coronavirus (PCR) Chest x-ray: other (none today) Allied health notes reviewed: nursing
--- NOTE | 2021-03-23 13:26 | Electrocardiograph Report ---
[facility] Test Date: 2021-03-19 Test Time: 08:54:41 Pat Name: RAN JONES Department: Room: A258 1 Gender: M [employer] Helper: erick : [phone] Requested By: DEBBY ELLISON Order Number: [id number] Reading MD: Serg Sherman Measurements Intervals Ethel Rate: 119 P: 58 RI: 149 QRS: -38 QRSD: 88 T: 67 QT: 331 QTc: 466 Interpretive Statements Sinus tachycardia Left ventricular hypertrophy Compared to ECG 03/16/2021 13:18:22 No significant change Electronically Signed On 03-23-2021 13:26:30 EST by Segr Sherman
--- NOTE | 2021-03-23 13:47 | Progress Note ---
Assessment and Plan Cultures: SARS CoV2 PCR: positive 03/08/2021 blood culture: no growth 03/10/2021 sputum culture: Usual respiratory marlyn 03/16/2021 blood culture: In process 03/18/2021 sputum culture: Stenotrophomonas A/P: 61-year-old male with diabetes, hypertension admitted to the hospital with complaints of shortness of breath and feeling weak for the last 1 week: #Sepsis secondary to bilateral pneumonia: secondary to COVID-19. Elevated inflammatory markers. WBC 22.6, creatinine 1.3, ferritin 877, CRP 18.0, LDH 624, procalcitonin 0.18. D-dimer >10k. CTA negative for pulmonary embolism, severe patchy groundglass opacities. #New fever: probably COVID related. #Acute hypoxic respiratory failure: initially required BiPAP, now intubated, on the vent. #DM #HTN Recs: -Start Bactrim for stenotrophomonas.. Planned 8 days -Continue steroids per pulm, on solumedrol, would not extend beyond 10 days especially since patient also received Actemra. -completed IV remdesivir -s/p Actemra 03/10/2021 -prophylactic anticoagulation based on d-dimer per hospital protocol Nayan Goins MD [facility] O: [phone] F: [phone] Subjective Date of service: 03/23/21 Principal diagnosis: COVID-19 infection; DM II; Bilateral pneumonia; Obesity; HTN Interval history: Febrile to 100.4 with a white count of 11.7. Objective - Exam Narrative Exam: Physical exam deferred to reduce risk of transmission of COVID-19. Please refer to primary team's note. - Constitutional Vitals: Vital Signs Temp Pulse Resp BP Pulse Ox 99.9 F H 112 H 13 114/60 98 03/23/21 11:30 03/23/21 11:19 03/23/21 11:00 03/23/21 11:19 03/23/21 11:19 Temperature -Last 24 Hours Temperature 99.9 F Temperature 100.4 F Temperature 100.4 F Temperature 98.4 F Temperature 99.1 F Temperature 99.9 F Temperature 98.0 F - Labs CBC & Chem 7: 03/23/21 07:04 03/23/21 07:04 Labs: Abnormal lab results 03/22/21 03/22/21 03/22/21 Range/Units 16:01 21:13 23:48 WBC (4.5-11.0) K/mm3 MCV (84-94) fl RDW (13.2-15.2) % ABG pH (7.350-7.450) pH Units ABG pO2 (80.0-90.0) mm Hg ABG HCO3 (20.0-26.0) mmol/L ABG Base Excess (-2.0-3.0) mmol/L ABG Hemoglobin (14.0-18.0) gm/dl Sodium (137-145) mmol/L Chloride (98-107) mmol/L Carbon Dioxide (22-30) mmol/L BUN (9-20) mg/dL Glucose (75-100) mg/dL POC Glucose 148 H 121 H 114 H (70-105) mg/dL Magnesium (1.7-2.3) mg/dL 03/23/21 03/23/21 03/23/21 Range/Units 07:04 07:04 08:35 WBC 11.7 H (4.5-11.0) K/mm3 MCV 95 H (84-94) fl RDW 16.1 H (13.2-15.2) % ABG pH 7.345 L (7.350-7.450) pH Units ABG pO2 167.9 H (80.0-90.0) mm Hg ABG HCO3 32.2 H (20.0-26.0) mmol/L ABG Base Excess 4.8 H (-2.0-3.0) mmol/L ABG Hemoglobin 13.4 L (14.0-18.0) gm/dl Sodium 148 H (137-145) mmol/L Chloride 111.3 H (98-107) mmol/L Carbon Dioxide 31 H (22-30) mmol/L BUN 31 H (9-20) mg/dL Glucose 131 H (75-100) mg/dL POC Glucose (70-105) mg/dL Magnesium 2.50 H (1.7-2.3) mg/dL 03/23/21 Range/Units 11:19 WBC (4.5-11.0) K/mm3 MCV (84-94) fl RDW (13.2-15.2) % ABG pH (7.350-7.450) pH Units ABG pO2 (80.0-90.0) mm Hg ABG HCO3 (20.0-26.0) mmol/L ABG Base Excess (-2.0-3.0) mmol/L ABG Hemoglobin (14.0-18.0) gm/dl Sodium (137-145) mmol/L Chloride (98-107) mmol/L Carbon Dioxide (22-30) mmol/L BUN (9-20) mg/dL Glucose (75-100) mg/dL POC Glucose 165 H (70-105) mg/dL Magnesium (1.7-2.3) mg/dL
[2021-03-23] MEDS: DOXAZOSIN 1 MG TAB PO SCH (14:00)
--- NOTE | 2021-03-23 15:17 | Progress Note ---
<FLORIANMARISABEL TrishLester - Last Filed: 03/23/21 15:18> Assessment and Plan Assessment and plan: This is a 61-year-old man with HTN and DM admitted with COVID-19 pneumonia, acute hypoxic respiratory failure, sepsis Severe sepsis (POA), COVID 19 PNA, Stenotrophomonas Maltophillia in trachial aspirate -Infectious disease consulted, appreciate recommendation -S/p Actemra 03/10/2021 -IV remdesivir for 5 days -Solumederol 60mg q 8 -weaning started -Prophylactic anticoagulation per hospital protocol -Droplet/isolation precautions -Monitor WBC and temperature curve -03/08 blood culture x2 with no growth to date and tracheal aspirate GNR -Speciated to Stenotrophomonas Maltophillia -started on bactrim Acute hypoxic respiratory failure -CCM consulted, appreciate recommendations -CT chest shows severe patchy multifocal ground glass airspace disease -Intubated on 03/10 with a 7.50 ETT at 20 for the lips -A.m. vent settings: Assist control tidal volume 450, rate 12, PEEP 8, FiO2 40% -See RT notes for titration -A.m. ABG and CXR noted -VAP bundle -SPO2 monitoring -Albuterol as needed, Brovana and Pulmicort Acute Metabolic Encephalopathy -Avoid delirium -Reorientation as needed -Sedated with propofol and fentanyl -Seroquel, Librium -RASS goal -1 to -2 -As needed analgesia -Maintain sleep-wake cycle -Bilateral restraints in place for safety -SAT and SBT when appropriate -check am EKG Superficial thrombus in left gastrocnemius vein -Bilateral lower extremity ultrasound negative for DVT, superficial thrombus in left gastrocnemius vein -repeat BLE Doppler US -CTA chest shows no gross pulm embolism -Trend CBC -SCDs to BLE while in bed -Transfuse hemoglobin less than 7 -Treatment dose Lovenox -decreased to prophylactic dosing -Monitor for signs of bleeding h/o HTN -Blood pressure monitoring per protocol -Cardiology consulted, appreciate recommendations -Echocardiogram shows a mildly dilated ascending aorta, normal LV systolic function, mild concentric LVH, LVEF 60 to 65% -Hydralazine and metoprolol, titrate as needed Obesity -24 hours -285 mL -PPI -NTR consulted for tube feedings -BR: Senokot -BMS removed due to external hemorrhoids (as needed Preparation H) Endo: h/o DM -Avoid hypoglycemia -SSI, lantus->increase as needed -Accu-Cheks q. 6 The high probability of a clinically significant, sudden or life threatening deterioration of the [multi] system(s) required my full and direct attention, intervention and personal management. The aggregate critical care time was [60] minutes. This time is in addition to time spent performing reported procedures but includes the following: [x] Data Review and interpretation [x] Patient assessment and monitoring of vital signs [x] Documentation [x] Medication orders and management Disposition Plan: icu Total Time Spent with Patient (Minutes): 60 History Interval history: This is a 61-year-old male with HTN and DM who presented to the emergency department on 03/09 with shortness of breath and hypoxia via EMS. Patient had apparently been feeling ill for proxy 1 week prior to mentation. Upon EMS arrival patient SPO2 was in the low 70s and improved to upper 80slow 90s on nonrebreather and he was transported to [facility] in the emergency department patient was noted to be hypoxic and placed on a BiPAP with improvement to mentation and hypoxia. CXR showed bilateral patchy infiltrates. Lab work showed leukocytosis, elevated D-dimer, hyponatremia, hypochloremia and elevated COVID-19 markers with elevated BNP. CTA chest showed no pulmonary embolism. Patient was admitted to the hospitalist service as a COVID-19 PUI and started on antibiotics and Decadron with consult to infectious disease. 03/09: The patient was seen and evaluated today, and he was found to be hemodynamically stable. The patient is currently on BiPAP for possible COVID-19 pneumonia. He was started on Lovenox 1mg/kg for DVT ppx in the setting of d- dimer > 10,000. Infectious Disease was consulted. The patient is pending a TTE. 03/10: No acute events overnight, patient was intubated in the afternoon transferred to ICU 03/11: Patient started on Lantus, free water flushes increased, propofol drip resumed and oral antihypertensive added. 03/12: lantus increased, k at 5, will monitor. I updated his family and his stated that he is not vaccinated. He does have HTN and she will call the RN to update home medications. She did say he takes bystolic and amlopine. She inquired about ventilator and lab work. She had no further questions. 03/13: KVNG overnight. Patient remains hyperglycemic, basal insulin adjusted and increased to Q12hrs. Patient is overall net positive since admit X1 dose of IV lasix, repeat BMP this afternoon. 03/14: Failed SAT this am due to increase agitation, tachycardia and hypertension. Remains on propofol and fentanyl gtt. Hyperkalemia treated with PO kayaxalate. Patient responded to IV lasix yesterday additional dose again today for a net negative balance. Repeat BMP this afternoon. Insulin adjusted for hyperglycemia. 03/15: Remains encephalopathic, not following commansd. Orders placed for CT head/Brain and Neuro consulted. Rectal bleeding subsided, most likely due to hemorrhoids. H&H is stable will continue to monitor. Kayaxexalate for high K, repeat labs 4 to 6hrs post treatment. 03/16: Still agiated this am, CT head with no acute Abn. CXR and ABG noted- evolving pna and worsening hypoxia, now with low grade fevers. Sputum culture ordered, IV Abx added, ID on cosult. 03/17: This am ABG noted, hypoxia improved. Continue to wean FiO2 as tolerated. Still with low grade fevers, on IV Abx per ID. Still with periods of confusion despite sedation, seroquel increased. F/u CXR in the am 03/18: still very agitated especially when off sedation, with hypertension and tachycardia. Continue sedation for RASS -2, PRN antihypertensive for SPB greater than 160. This febrile this am, continue current IV abx per ID 03/19: Patient afebrile overnight, continue IV Abx per ID. ABG also improved this am, continue to wean FIO2 as tolerated. PRN antihypertensive for hypertension. 03/20: Hyperkalemia treated with Kayexalate, Godo discontinued, vancomycin and cefepime stopped started Bactrim by ID. Steroid taper started. 03/21: BB started for hypertension, Seroquel increased for agitation and Librium started no acute events reported overnight. [facility] made vent changes 03/22: Adjustment to anxiolytics, respiratory rate on ventilator per [facility]. Patient noted to have bleeding hemorrhoids with clot, requested RN to remove bowel management system and will order Preparation H. 03/23: Given no confirmed DVT or PE (only superficial thrombus noted on Dopplers) therapeutic Lovenox changed to prophylactic Lovenox. Started on doxazosin to help with retention. Consulted surgery for tracheostomy and propofol discontinued. Hospitalist Physical - Constitutional Vitals: Temp Pulse Resp BP Pulse Ox 99.9 F H 117 H 25 H 125/80 91 03/23/21 12:00 03/23/21 15:00 03/23/21 15:00 03/23/21 15:00 03/23/21 15:00 General appearance: Present: no acute distress, well-nourished, obese, other (Intubated and sedated) - EENT Eyes: Present: PERRL, EOM intact ENT: hearing intact, clear oral mucosa, dentition normal - Neck Neck: Present: normal ROM - Respiratory Respiratory effort: normal Respiratory: bilateral: diminished - Cardiovascular Rhythm: regular Heart Sounds: Present: S1 & S2. Absent: systolic murmur, diastolic murmur - Extremities Extremities: no ischemia, pulses intact, pulses symmetrical, No edema, normal temperature, normal color Peripheral Pulses: within normal limits - Abdominal General gastrointestinal: soft, non-tender, non-distended, normal bowel sounds - Integumentary Integumentary: Present: warm, dry - Psychiatric Psychiatric: other (sedated) - Neurologic Neurologic: other (sedated, intact cough/gag PERRL) - Allied Health Allied health notes reviewed: nursing, RT, social work Results - Labs CBC & Chem 7: 03/23/21 07:04 03/23/21 07:04 Labs: Laboratory Last Values WBC 11.7 K/mm3 (4.5-11.0) H 03/23/21 07:04 RBC 4.45 M/mm3 (3.65-5.03) 03/23/21 07:04 Hgb 13.4 gm/dl (11.8-15.2) 03/23/21 07:04 Hct 42.0 % (35.5-45.6) 03/23/21 07:04 MCV 95 fl (84-94) H 03/23/21 07:04 MCH 30 pg (28-32) 03/23/21 07:04 MCHC 32 % (32-34) 03/23/21 07:04 RDW 16.1 % (13.2-15.2) H 03/23/21 07:04 Plt Count 191 K/mm3 (140-440) 03/23/21 07:04 Lymph % (Auto) 12.6 % (13.4-35.0) L 03/17/21 04:40 Bent % (Auto) 11.3 % (0.0-7.3) H 03/17/21 04:40 Eos % (Auto) 0.4 % (0.0-4.3) 03/17/21 04:40 Baso % (Auto) 0.8 % (0.0-1.8) 03/17/21 04:40 Lymph # (Auto) 1.8 K/mm3 (1.2-5.4) 03/17/21 04:40 Bent # (Auto) 1.6 K/mm3 (0.0-0.8) H 03/17/21 04:40 Eos # (Auto) 0.1 K/mm3 (0.0-0.4) 03/17/21 04:40 Baso # (Auto) 0.1 K/mm3 (0.0-0.1) 03/17/21 04:40 Add Manual Diff Complete 03/10/21 04:29 Total Counted 100 03/10/21 04:29 Seg Neutrophils % 74.9 % (40.0-70.0) H 03/17/21 04:40 Seg Neuts % (Manual) 94.0 % (40.0-70.0) H 03/10/21 04:29 Band Neutrophils % 0 % 03/10/21 04:29 Lymphocytes % (Manual) 1.0 % (13.4-35.0) L 03/10/21 04:29 Reactive Lymphs % (Man) 0 % 03/10/21 04:29 Monocytes % (Manual) 5.0 % (0.0-7.3) 03/10/21 04:29 Eosinophils % (Manual) 0 % (0.0-4.3) 03/10/21 04:29 Basophils % (Manual) 0 % (0.0-1.8) 03/10/21 04:29 Metamyelocytes % 0 % 03/10/21 04:29 Myelocytes % 0 % 03/10/21 04:29 Promyelocytes % 0 % 03/10/21 04:29 Blast Cells % 0 % 03/10/21 04:29 Nucleated RBC % 3.0 % (0.0-0.9) H 03/10/21 04:29 Seg Neutrophils # 10.5 K/mm3 (1.8-7.7) H 03/17/21 04:40 Seg Neutrophils # Man 19.4 K/mm3 (1.8-7.7) H 03/10/21 04:29 Band Neutrophils # 0.0 K/mm3 03/10/21 04:29 Lymphocytes # (Manual) 0.2 K/mm3 (1.2-5.4) L 03/10/21 04:29 Abs React Lymphs (Man) 0.0 K/mm3 03/10/21 04:29 Monocytes # (Manual) 1.0 K/mm3 (0.0-0.8) H 03/10/21 04:29 Eosinophils # (Manual) 0.0 K/mm3 (0.0-0.4) 03/10/21 04:29 Basophils # (Manual) 0.0 K/mm3 (0.0-0.1) 03/10/21 04:29 Metamyelocytes # 0.0 K/mm3 03/10/21 04:29 Myelocytes # 0.0 K/mm3 03/10/21 04:29 Promyelocytes # 0.0 K/mm3 03/10/21 04:29 Blast Cells # 0.0 K/mm3 03/10/21 04:29 WBC Morphology Not Reportable 03/10/21 04:29 Hypersegmented Neuts Not Reportable 03/10/21 04:29 Hyposegmented Neuts Not Reportable 03/10/21 04:29 Hypogranular Neuts Not Reportable 03/10/21 04:29 Smudge Cells Not Reportable 03/10/21 04:29 Toxic Granulation Not Reportable 03/10/21 04:29 Toxic Vacuolation Not Reportable 03/10/21 04:29 Dohle Bodies Not Reportable 03/10/21 04:29 Pelger-Huet Anomaly Not Reportable 03/10/21 04:29 Mely Rods Not Reportable 03/10/21 04:29 Platelet Estimate Consistent w auto 03/10/21 04:29 Clumped Platelets Not Reportable 03/10/21 04:29 Plt Clumps, EDTA Not Reportable 03/10/21 04:29 Large Platelets Not Reportable 03/10/21 04:29 Giant Platelets Not Reportable 03/10/21 04:29 Platelet Satelliting Not Reportable 03/10/21 04:29 Plt Morphology Comment Not Reportable 03/10/21 04:29 RBC Morphology Normal 03/10/21 04:29 Dimorphic RBCs Not Reportable 03/10/21 04:29 Polychromasia Not Reportable 03/10/21 04:29 Hypochromasia Not Reportable 03/10/21 04:29 Poikilocytosis Not Reportable 03/10/21 04:29 Anisocytosis Not Reportable 03/10/21 04:29 Microcytosis Not Reportable 03/10/21 04:29 Macrocytosis Not Reportable 03/10/21 04:29 Spherocytes Not Reportable 03/10/21 04:29 Pappenheimer Bodies Not Reportable 03/10/21 04:29 Sickle Cells Not Reportable 03/10/21 04:29 Target Cells Not Reportable 03/10/21 04:29 Tear Drop Cells Not Reportable 03/10/21 04:29 Ovalocytes Not Reportable 03/10/21 04:29 Helmet Cells Not Reportable 03/10/21 04:29 [place] Bodies Not Reportable 03/10/21 04:29 [place]ounds Rings Not Reportable 03/10/21 04:29 Shama Cells Not Reportable 03/10/21 04:29 Bite Cells Not Reportable 03/10/21 04:29 Crenated Cell Not Reportable 03/10/21 04:29 Elliptocytes Not Reportable 03/10/21 04:29 Acanthocytes (Spur) Not Reportable 03/10/21 04:29 Rouleaux Not Reportable 03/10/21 04:29 Hemoglobin C Crystals Not Reportable 03/10/21 04:29 Schistocytes Not Reportable 03/10/21 04:29 Malaria parasites Not Reportable 03/10/21 04:29 Shaheen Bodies Not Reportable 03/10/21 04:29 Hem Pathologist Commnt No 03/10/21 04:29 PT 16.1 Sec. (12.2-14.9) H 03/08/21 20:24 INR 1.17 (0.87-1.13) H 03/08/21 20:24 APTT 28.0 Sec. (24.2-36.6) 03/08/21 20:24 D-Dimer 1359.12 ng/mlDDU (0-234) H 03/17/21 04:40 ABG pH 7.345 pH Units (7.350-7.450) L 03/23/21 08:35 POC ABG pCO2 71.9 mmHg (32.0-48.0) H 03/12/21 21:54 ABG pCO2 60.4 mm Hg 03/23/21 08:35 POC ABG pO2 53.6 mmHg (83-108) L 03/12/21 21:54 ABG pO2 167.9 mm Hg (80.0-90.0) H 03/23/21 08:35 POC ABG HCO3 30.0 03/12/21 21:54 ABG HCO3 32.2 mmol/L (20.0-26.0) H 03/23/21 08:35 ABG O2 Saturation 98.9 % (95.0-99.0) 03/23/21 08:35 ABG O2 Content 18.6 (0.0-44) 03/23/21 08:35 POC ABG Base Excess 0.5 03/12/21 21:54 ABG Base Excess 4.8 mmol/L (-2.0-3.0) H 03/23/21 08:35 ABG Hemoglobin 13.4 gm/dl (14.0-18.0) L 03/23/21 08:35 ABG Oxyhemoglobin 84.8 (94-98) L 03/12/21 21:54 ABG Carboxyhemoglobin 1.5 % (0.0-5.0) 03/23/21 08:35 ABG Methemoglobin 0.8 % (0.0-1.5) 03/23/21 08:35 ABG Sodium 134.2 mmol/L (136.0-145.0) L 03/12/21 21:54 ABG Potassium 4.9 mmol/L (3.40-4.50) H 03/12/21 21:54 ABG Chloride 99.0 mmol/L (98-107) 03/12/21 21:54 ABG Glucose 306 mg/dL (65-95) H 03/12/21 21:54 Oxyhemoglobin 96.6 % (95.0-99.0) 03/23/21 08:35 Carboxyhemoglobin 0.6 (0.5-1.5) 03/12/21 21:54 FiO2 100 % 03/23/21 08:35 FiO2 % 50.0 03/12/21 21:54 Sodium 148 mmol/L (137-145) H 03/23/21 07:04 Potassium 4.9 mmol/L (3.6-5.0) 03/23/21 07:04 Chloride 111.3 mmol/L (98-107) H 03/23/21 07:04 Carbon Dioxide 31 mmol/L (22-30) H 03/23/21 07:04 Anion Gap 11 mmol/L 03/23/21 07:04 BUN 31 mg/dL (9-20) H 03/23/21 07:04 Creatinine 0.8 mg/dL (0.8-1.3) 03/23/21 07:04 Estimated GFR > 60 ml/min 03/23/21 07:04 BUN/Creatinine Ratio 39 % 03/23/21 07:04 Glucose 131 mg/dL (75-100) H 03/23/21 07:04 POC Glucose 165 mg/dL (70-105) H 03/23/21 11:19 Lactic Acid 1.90 mmol/L (0.7-2.0) 03/08/21 23:51 Calcium 8.9 mg/dL (8.4-10.2) 03/23/21 07:04 Phosphorus 3.20 mg/dL (2.5-4.5) D 03/23/21 07:04 Magnesium 2.50 mg/dL (1.7-2.3) H 03/23/21 07:04 Ferritin 976.4 ng/mL (30.0-300.0) H 03/15/21 04:00 Total Bilirubin 0.20 mg/dL (0.1-1.2) 03/12/21 08:03 AST 10 units/L (5-40) 03/12/21 08:03 ALT 16 units/L (7-56) 03/12/21 08:03 Alkaline Phosphatase 77 units/L (35-129) 03/12/21 08:03 Lactate Dehydrogenase 630 units/L (91-180) H 03/15/21 06:06 C-Reactive Protein 0.40 mg/dL (0.00-1.30) 03/17/21 04:40 NT-Pro-B Natriuret Pep 1053 pg/mL (0-900) H 03/08/21 20:24 Total Protein 6.0 g/dL (6.3-8.2) L 03/12/21 08:03 Albumin 2.9 g/dL (3.9-5) L 03/12/21 08:03 Albumin/Globulin Ratio 0.9 % 03/12/21 08:03 Triglycerides 305 mg/dL (2-149) H 03/22/21 07:26 Procalcitonin 0.05 ng/mL (<0.15) 03/17/21 04:40 Arterial Blood Glucose 306 mg/dL (65-95) H 03/12/21 21:54 Arterial Blood Ionized Calcium 5.0 mg/dL (4.6-5.3) 03/12/21 21:54 Urine Color Yellow (Yellow) 03/09/21 04:10 Urine Turbidity Slightly-cloudy (Clear) 03/09/21 04:10 Urine pH 5.0 (5.0-7.0) 03/09/21 04:10 Ur Specific Schroeder 1.041 (1.003-1.030) H 03/09/21 04:10 Urine Protein 100 mg/dl mg/dL (Negative) 03/09/21 04:10 Urine Glucose (UA) Neg mg/dL (Negative) 03/09/21 04:10 Urine Ketones Neg mg/dL (Negative) 03/09/21 04:10 Urine Blood Mod (Negative) 03/09/21 04:10 Urine Nitrite Neg (Negative) 03/09/21 04:10 Urine Bilirubin Neg (Negative) 03/09/21 04:10 Urine Urobilinogen 2.0 mg/dL (<2.0) 03/09/21 04:10 Ur Leukocyte Esterase Neg (Negative) 03/09/21 04:10 Urine WBC (Auto) 4.0 /HPF (0.0-6.0) 03/09/21 04:10 Urine RBC (Auto) 1.0 /HPF (0.0-6.0) 03/09/21 04:10 Urine Bacteria (Auto) 1+ /HPF (Negative) 03/09/21 04:10 Urine Mucus Few /HPF 03/09/21 04:10 Coronavirus (PCR) Positive (Negative) A 03/09/21 08:00 Miscellaneous Test Flexitest 1 03/16/21 09:48 Good/IV: Voiding Method Indwelling Catheter Active Medications - Current Medications Current Medications: Generic Name Dose Route Start Last Admin Trade Name Freq PRN Reason Stop Dose Admin Acetaminophen 650 mg 03/09/21 01:26 03/23/21 10:03 Acetaminophen 325 Mg Tab PO 650 mg Q4H PRN Administration Pain MILD(1-3)/Fever >100.5/RAYO Albuterol 2.5 mg 03/09/21 01:26 03/18/21 21:06 Albuterol 2.5 Mg/3 Ml Nebu IH 2.5 mg Q4HRT PRN Administration Shortness Of Breath Arformoterol Tartrate 15 mcg 03/11/21 20:00 03/23/21 07:51 Arformoterol 15 Mcg/2 Ml Nebu IH Not Given Q12HRT [facility] Ascorbic Acid 500 mg 03/10/21 14:00 03/23/21 10:04 Ascorbic Acid 500 Mg Tab PO 500 mg BID BLANCA Administration Budesonide 0.25 mg 03/11/21 20:00 03/23/21 07:51 Budesonide 0.25 Mg/2 Ml Nebu IH Not Given Q12HRT [facility] Chlordiazepoxide HCl 75 mg 03/22/21 18:00 03/23/21 11:40 Chlordiazepoxide 25 Mg Cap PO 75 mg Q6HR [facility]AN[facility] Administration Dextrose 0 ml 03/20/21 10:52 Dextrose 10% *Hypoglycemia IV PRN PRN Hypoglycemia Doxazosin Mesylate 1 mg 03/23/21 14:00 03/23/21 14:00 Doxazosin 1 Mg Tab PO Not Given QDAY [facility] Enoxaparin Sodium 60 mg 03/24/21 10:00 Enoxaparin 60 Mg/0.6 Ml Inj SUB-Q QDAY [facility] Protocol Famotidine 20 mg 03/12/21 22:00 03/23/21 10:04 Famotidine 20 Mg Tab FEEDTUBE 20 mg BID BLANCA Administration Hydralazine HCl 50 mg 03/23/21 14:26 Hydralazine 25 Mg Tab PO Q8HR [facility] Hydrophilic Ointment 1 applic 03/10/21 15:39 Lip Therapy Vaseline TP Q2HR PRN Dry Lips Fentanyl Citrate 2,000 mcg in 100 mls @ 5.897 mls/hr 03/10/21 17:00 03/23/21 11:50 Fentanyl Drip Premix IV 1 mcg/kg/hr TITR BLANCA 5.897 mls/hr Titration Protocol 1 MCG/KG/HR Propofol 1,000 mg in 100 mls @ 3.507 mls/hr 03/11/21 17:00 03/22/21 18:02 Diprivan 10 Mg/Ml IV 0 mcg/kg/min TITR BLANCA 0 mls/hr Titration Protocol 5 MCG/KG/MIN Insulin Glargine 25 units 03/14/21 10:00 03/23/21 10:04 Insulin Glargine 100 Units/Ml SUB-Q 25 units BID [facility]ANCA Administration Insulin Human Lispro 0 unit 03/11/21 18:00 03/23/21 11:45 Insulin Lispro 100 Unit/Ml SUB-Q 3 unit Q6HR [facility] Administration Protocol Labetalol HCl 10 mg 03/12/21 21:13 03/21/21 16:54 Labetalol 20 Mg/4 Ml Inj IV 10 mg Q6H PRN Administration Blood Pressure Methylprednisolone Sodium Succinate 40 mg 03/21/21 06:00 03/23/21 14:28 Methylprednisolone Sod Succinate 40 Mg/1 Ml Inj IV 03/24/21 05:59 40 mg Q8HR [facility] Administration Methylprednisolone Sodium Succinate 40 mg 03/25/21 10:00 Methylprednisolone Sod Succinate 40 Mg/1 Ml Inj IV 03/26/21 22:01 Q12HR [facility] Methylprednisolone Sodium Succinate 40 mg 03/27/21 10:00 Methylprednisolone Sod Succinate 40 Mg/1 Ml Inj IV 03/28/21 10:01 Q24HR [facility] Metoprolol Tartrate 12.5 mg 03/21/21 22:00 03/23/21 10:03 Metoprolol Tartrate 25 Mg Tab PO 12.5 mg BID [facility]AN[facility] Administration Midazolam HCl 2 mg 03/15/21 08:49 03/23/21 07:58 Midazolam 2 Mg/2 Ml Inj IV 2 mg Q2H PRN Administration VENT SYNCHRONY Multi-Ingred Cream/Lotion/Oil/Oint 1 applic 03/10/21 15:39 Mineral Oil/Petrolatum, White Ophth Oint 3.5 Gm OU Q4HR PRN Dry Eye(s) Ondansetron HCl 4 mg 03/09/21 01:26 Ondansetron 4 Mg/2 Ml Inj IV Q8H PRN Nausea And Vomiting Phenyleph/Shark Oil/Min Oil/Petrol 1 applic 03/22/21 17:35 Pe/Mo/Pet,Wh 10 Applic/28 Gm Tube [place] Q6HR PRN Hemorrhoids Prednisone 10 mg 03/29/21 10:00 Prednisone 10 Mg Tab PO DAILY [facility] Quetiapine Fumarate 300 mg 03/21/21 22:00 03/23/21 10:04 Quetiapine 100 Mg Tab PO 300 mg BID [facility]AN[facility] Administration Senna/Docusate Sodium 1 tab 03/10/21 22:00 03/23/21 10:04 Sennosides/Docusate Sodium 8.6/50 Mg Tab FEEDTUBE 1 tab BID [facility]AN[facility] Administration Sodium Chloride 10 ml 03/09/21 10:00 03/23/21 10:04 Sodium Chloride 0.9% 10 Ml Flush Syringe IV Not Given BID BLANCA Sodium Chloride 10 ml 03/09/21 01:26 Sodium Chloride 0.9% 10 Ml Flush Syringe IV PRN PRN LINE FLUSH Sodium Chloride 10 ml 03/20/21 09:48 Sodium Chloride 0.9% 50 Ml Ivpb IV PRN PRN FLUSH Trimethoprim/Sulfamethoxazole 1 each 03/20/21 16:00 03/23/21 10:03 Sulfamethoxazole/Trimethoprim 800/160mg Ds Tab PO 1 each Q12HR [facility] Administration Protocol Zinc Sulfate 220 mg 03/10/21 14:00 03/23/21 10:04 Zinc Sulfate 220 Mg Cap PO 220 mg BID BLANCA Administration Nutrition/Malnutrition Assess - Dietary Evaluation Nutrition/Malnutrition Findings: Nutrition Notes Start: 03/09/21 08:49 Freq: Status: Active Protocol: Document 03/20/21 16:21 BRYANNA (Rec: 03/20/21 16:53 BRYANNA [id number]) Nutrition Notes Current Diagnosis Diabetes,Sepsis,Hypertension, Respiratory Failure Other Pertinent Diagnosis COVID-19, Bilateral Pneumonia. Current Diet TF-Glucerna 1.2 Tyson at 40 ml/ hr (since D 03/17). Labs/Tests 03/20: Na 146, K 5.5, Cl 111.1 , BUN 34, Crea 0.7, Glu 145, Mg 2.5. Pertinent Medications 03/20: Vit C, Insulin, ZnSO4, Propofol @ 35.07 ml/hr ( 926Kcal), others nutritionally unremarkable. Height 5 ft 11 in Weight 120 kg [place] Body Weight (kg) 78.18 BMI 36.8 Weight change and time frame 3.0 Kg body weight gain in 3 days reported. Weight Status Obese Subjective/Other Information RD consult for routine F/U on TF tolerance. Pt remains on mechanical ventilation, according to [facility] notes. TF continues as prescribed. Pt continues with low-grade fever. Percent of energy/protein needs met: Prescribed Glucerna 1.2 Tyson @ 40 ml/hr provides for energy/ protein needs (1,152 Kcal/58 g ) during LOS, additionally, Propofol contributes with 926 Kcal, 87% Kcal; 46% AA. #1 Nutrition Diagnosis Inadequate oral intake Diagnosis Progress(for reassessment Continues documentation) Nutrition Intervention Nutrition Support: Continue Glucerna 1.2 @ 40 ml/ hr. Flush: 200ml water Q 4 hr ( until hypernatremia resolved). Kcal 1,152 Protein (gm) 58 Carbohydrates (gm) 110 Fat (gm) 58 Fluid (mL) 773 Fiber (gm) 15 % RDI: 48% Kcal; 46% AA. Goal #1 Provide at least 75% of energy /protein needs through Enteral Feeding during LOS. Follow-Up By: 03/27/21 Additional Comments Continue monitoring TF tolerance and BM. <RAFAEL DOMINGUEZ - Last Filed: 04/03/21 18:47> Assessment and Plan Assessment and plan: I saw and evaluated the patient. Discussed with the nurse practitioner and agree with their findings and plan as documented in this note. Hospitalist Physical - Constitutional Vitals: Temp Pulse Resp BP Pulse Ox 99.1 F 107 H 25 H 127/62 95 04/03/21 16:42 04/03/21 18:15 04/03/21 18:15 04/03/21 18:15 04/03/21 18:15 Results - Labs CBC & Chem 7: 04/03/21 04:14 04/03/21 04:14 Labs: Laboratory Last Values WBC 8.8 K/mm3 (4.5-11.0) 04/03/21 04:14 RBC 3.62 M/mm3 (3.65-5.03) L 04/03/21 04:14 Hgb 11.0 gm/dl (11.8-15.2) L 04/03/21 04:14 Hct 34.0 % (35.5-45.6) L 04/03/21 04:14 MCV 94 fl (84-94) 04/03/21 04:14 MCH 30 pg (28-32) 04/03/21 04:14 MCHC 32 % (32-34) 04/03/21 04:14 RDW 16.3 % (13.2-15.2) H 04/03/21 04:14 Plt Count 280 K/mm3 (140-440) 04/03/21 04:14 Lymph % (Auto) 7.6 % (13.4-35.0) L 03/31/21 13:30 Bent % (Auto) 9.5 % (0.0-7.3) H 03/31/21 13:30 Eos % (Auto) 4.1 % (0.0-4.3) 03/31/21 13:30 Baso % (Auto) 0.5 % (0.0-1.8) 03/31/21 13:30 Lymph # (Auto) 0.6 K/mm3 (1.2-5.4) L 03/31/21 13:30 Bent # (Auto) 0.7 K/mm3 (0.0-0.8) 03/31/21 13:30 Eos # (Auto) 0.3 K/mm3 (0.0-0.4) 03/31/21 13:30 Baso # (Auto) 0.0 K/mm3 (0.0-0.1) 03/31/21 13:30 Add Manual Diff Complete 03/10/21 04:29 Total Counted 100 03/10/21 04:29 Seg Neutrophils % 78.3 % (40.0-70.0) H 03/31/21 13:30 Seg Neuts % (Manual) 94.0 % (40.0-70.0) H 03/10/21 04:29 Band Neutrophils % 0 % 03/10/21 04:29 Lymphocytes % (Manual) 1.0 % (13.4-35.0) L 03/10/21 04:29 Reactive Lymphs % (Man) 0 % 03/10/21 04:29 Monocytes % (Manual) 5.0 % (0.0-7.3) 03/10/21 04:29 Eosinophils % (Manual) 0 % (0.0-4.3) 03/10/21 04:29 Basophils % (Manual) 0 % (0.0-1.8) 03/10/21 04:29 Metamyelocytes % 0 % 03/10/21 04:29 Myelocytes % 0 % 03/10/21 04:29 Promyelocytes % 0 % 03/10/21 04:29 Blast Cells % 0 % 03/10/21 04:29 Nucleated RBC % 3.0 % (0.0-0.9) H 03/10/21 04:29 Seg Neutrophils # 5.8 K/mm3 (1.8-7.7) 03/31/21 13:30 Seg Neutrophils # Man 19.4 K/mm3 (1.8-7.7) H 03/10/21 04:29 Band Neutrophils # 0.0 K/mm3 03/10/21 04:29 Lymphocytes # (Manual) 0.2 K/mm3 (1.2-5.4) L 03/10/21 04:29 Abs React Lymphs (Man) 0.0 K/mm3 03/10/21 04:29 Monocytes # (Manual) 1.0 K/mm3 (0.0-0.8) H 03/10/21 04:29 Eosinophils # (Manual) 0.0 K/mm3 (0.0-0.4) 03/10/21 04:29 Basophils # (Manual) 0.0 K/mm3 (0.0-0.1) 03/10/21 04:29 Metamyelocytes # 0.0 K/mm3 03/10/21 04:29 Myelocytes # 0.0 K/mm3 03/10/21 04:29 Promyelocytes # 0.0 K/mm3 03/10/21 04:29 Blast Cells # 0.0 K/mm3 03/10/21 04:29 WBC Morphology Not Reportable 03/10/21 04:29 Hypersegmented Neuts Not Reportable 03/10/21 04:29 Hyposegmented Neuts Not Reportable 03/10/21 04:29 Hypogranular Neuts Not Reportable 03/10/21 04:29 Smudge Cells Not Reportable 03/10/21 04:29 Toxic Granulation Not Reportable 03/10/21 04:29 Toxic Vacuolation Not Reportable 03/10/21 04:29 Dohle Bodies Not Reportable 03/10/21 04:29 Pelger-Huet Anomaly Not Reportable 03/10/21 04:29 Mely Rods Not Reportable 03/10/21 04:29 Platelet Estimate Consistent w auto 03/10/21 04:29 Clumped Platelets Not Reportable 03/10/21 04:29 Plt Clumps, EDTA Not Reportable 03/10/21 04:29 Large Platelets Not Reportable 03/10/21 04:29 Giant Platelets Not Reportable 03/10/21 04:29 Platelet Satelliting Not Reportable 03/10/21 04:29 Plt Morphology Comment Not Reportable 03/10/21 04:29 RBC Morphology Normal 03/10/21 04:29 Dimorphic RBCs Not Reportable 03/10/21 04:29 Polychromasia Not Reportable 03/10/21 04:29 Hypochromasia Not Reportable 03/10/21 04:29 Poikilocytosis Not Reportable 03/10/21 04:29 Anisocytosis Not Reportable 03/10/21 04:29 Microcytosis Not Reportable 03/10/21 04:29 Macrocytosis Not Reportable 03/10/21 04:29 Spherocytes Not Reportable 03/10/21 04:29 Pappenheimer Bodies Not Reportable 03/10/21 04:29 Sickle Cells Not Reportable 03/10/21 04:29 Target Cells Not Reportable 03/10/21 04:29 Tear Drop Cells Not Reportable 03/10/21 04:29 Ovalocytes Not Reportable 03/10/21 04:29 Helmet Cells Not Reportable 03/10/21 04:29 Longo-[place]auville Bodies Not Reportable 03/10/21 04:29 Mounds Rings Not Reportable 03/10/21 04:29 Shama Cells Not Reportable 03/10/21 04:29 Bite Cells Not Reportable 03/10/21 04:29 Crenated Cell Not Reportable 03/10/21 04:29 Elliptocytes Not Reportable 03/10/21 04:29 Acanthocytes (Spur) Not Reportable 03/10/21 04:29 Rouleaux Not Reportable 03/10/21 04:29 Hemoglobin C Crystals Not Reportable 03/10/21 04:29 Schistocytes Not Reportable 03/10/21 04:29 Malaria parasites Not Reportable 03/10/21 04:29 Shaheen Bodies Not Reportable 03/10/21 04:29 Hem Pathologist Commnt No 03/10/21 04:29 PT 13.0 Sec. (12.2-14.9) 03/29/21 04:50 INR 0.88 (0.87-1.13) 03/29/21 04:50 APTT 28.0 Sec. (24.2-36.6) 03/08/21 20:24 D-Dimer 1359.12 ng/mlDDU (0-234) H 03/17/21 04:40 ABG pH 7.397 pH Units (7.350-7.450) 03/31/21 12:50 POC ABG pCO2 71.9 mmHg (32.0-48.0) H 03/12/21 21:54 ABG pCO2 58.1 mm Hg 03/31/21 12:50 POC ABG pO2 53.6 mmHg (83-108) L 03/12/21 21:54 ABG pO2 99.4 mm Hg (80.0-90.0) H 03/31/21 12:50 POC ABG HCO3 30.0 03/12/21 21:54 ABG HCO3 34.9 mmol/L (20.0-26.0) H 03/31/21 12:50 ABG O2 Saturation 97.3 % (95.0-99.0) 03/31/21 12:50 ABG O2 Content 15.9 (0.0-44) 03/31/21 12:50 POC ABG Base Excess 0.5 03/12/21 21:54 ABG Base Excess 8.4 mmol/L (-2.0-3.0) H 03/31/21 12:50 ABG Hemoglobin 11.8 gm/dl (14.0-18.0) L 03/31/21 12:50 ABG Oxyhemoglobin 84.8 (94-98) L 03/12/21 21:54 ABG Carboxyhemoglobin 1.6 % (0.0-5.0) 03/31/21 12:50 ABG Methemoglobin 0.7 % (0.0-1.5) 03/31/21 12:50 ABG Sodium 134.2 mmol/L (136.0-145.0) L 03/12/21 21:54 ABG Potassium 4.9 mmol/L (3.40-4.50) H 03/12/21 21:54 ABG Chloride 99.0 mmol/L (98-107) 03/12/21 21:54 ABG Glucose 306 mg/dL (65-95) H 03/12/21 21:54 Oxyhemoglobin 95.1 % (95.0-99.0) 03/31/21 12:50 Carboxyhemoglobin 0.6 (0.5-1.5) 03/12/21 21:54 FiO2 40 % 03/31/21 12:50 FiO2 % 50.0 03/12/21 21:54 Sodium 139 mmol/L (137-145) 04/03/21 04:14 Potassium 4.6 mmol/L (3.6-5.0) 04/03/21 04:14 Chloride 99.4 mmol/L (98-107) 04/03/21 04:14 Carbon Dioxide 31 mmol/L (22-30) H 04/03/21 04:14 Anion Gap 13 mmol/L 04/03/21 04:14 BUN 16 mg/dL (9-20) 04/03/21 04:14 Creatinine 0.6 mg/dL (0.8-1.3) L 04/03/21 04:14 Estimated GFR > 60 ml/min 04/03/21 04:14 BUN/Creatinine Ratio 27 % 04/03/21 04:14 Glucose 155 mg/dL (75-100) H 04/03/21 04:14 POC Glucose 180 mg/dL (70-105) H 04/03/21 16:19 Lactic Acid 1.90 mmol/L (0.7-2.0) 03/08/21 23:51 Calcium 8.6 mg/dL (8.4-10.2) 04/03/21 04:14 Phosphorus 3.40 mg/dL (2.5-4.5) 04/02/21 04:26 Magnesium 2.10 mg/dL (1.7-2.3) 04/02/21 04:26 Ferritin 976.4 ng/mL (30.0-300.0) H 03/15/21 04:00 Total Bilirubin 0.20 mg/dL (0.1-1.2) 03/12/21 08:03 AST 10 units/L (5-40) 03/12/21 08:03 ALT 16 units/L (7-56) 03/12/21 08:03 Alkaline Phosphatase 77 units/L (35-129) 03/12/21 08:03 Lactate Dehydrogenase 630 units/L (91-180) H 03/15/21 06:06 C-Reactive Protein 0.40 mg/dL (0.00-1.30) 03/17/21 04:40 NT-Pro-B Natriuret Pep 1053 pg/mL (0-900) H 03/08/21 20:24 Total Protein 6.0 g/dL (6.3-8.2) L 03/12/21 08:03 Albumin 2.9 g/dL (3.9-5) L 03/12/21 08:03 Albumin/Globulin Ratio 0.9 % 03/12/21 08:03 Triglycerides 305 mg/dL (2-149) H 03/22/21 07:26 Procalcitonin 0.17 ng/mL (<0.15) 04/01/21 07:16 Arterial Blood Glucose 306 mg/dL (65-95) H 03/12/21 21:54 Arterial Blood Ionized Calcium 5.0 mg/dL (4.6-5.3) 03/12/21 21:54 Urine Color Yellow (Yellow) 03/09/21 04:10 Urine Turbidity Slightly-cloudy (Clear) 03/09/21 04:10 Urine pH 5.0 (5.0-7.0) 03/09/21 04:10 Ur Specific Schroeder 1.041 (1.003-1.030) H 03/09/21 04:10 Urine Protein 100 mg/dl mg/dL (Negative) 03/09/21 04:10 Urine Glucose (UA) Neg mg/dL (Negative) 03/09/21 04:10 Urine Ketones Neg mg/dL (Negative) 03/09/21 04:10 Urine Blood Mod (Negative) 03/09/21 04:10 Urine Nitrite Neg (Negative) 03/09/21 04:10 Urine Bilirubin Neg (Negative) 03/09/21 04:10 Urine Urobilinogen 2.0 mg/dL (<2.0) 03/09/21 04:10 Ur Leukocyte Esterase Neg (Negative) 03/09/21 04:10 Urine WBC (Auto) 4.0 /HPF (0.0-6.0) 03/09/21 04:10 Urine RBC (Auto) 1.0 /HPF (0.0-6.0) 03/09/21 04:10 Urine Bacteria (Auto) 1+ /HPF (Negative) 03/09/21 04:10 Urine Mucus Few /HPF 03/09/21 04:10 Coronavirus (PCR) Positive (Negative) A 03/09/21 08:00 Miscellaneous Test Flexitest 1 03/16/21 13:14 Microbiology: Microbiology 03/31/21 13:30 Peripheral/Venous Blood Culture - Preliminary NO GROWTH AFTER 72 HOURS 03/31/21 14:00 Peripheral/Venous Blood Culture - Preliminary NO GROWTH AFTER 72 HOURS 03/31/21 15:55 Tracheal Aspirate Sputum Culture - Final Good/IV: Voiding Method Indwelling Catheter Active Medications - Current Medications Current Medications: Generic Name Dose Route Start Last Admin Trade Name Freq PRN Reason Stop Dose Admin Acetaminophen 650 mg 03/09/21 01:26 04/03/21 05:19 Acetaminophen 325 Mg Tab PO 650 mg Q4H PRN Administration Pain MILD(1-3)/Fever >100.5/RAYO Albuterol 2.5 mg 03/09/21 01:26 03/18/21 21:06 Albuterol 2.5 Mg/3 Ml Nebu IH 2.5 mg Q4HRT PRN Administration Shortness Of Breath Amlodipine Besylate 5 mg 03/30/21 10:00 04/03/21 10:01 Amlodipine 5 Mg Tab PO 5 mg QDAY BLANCA Administration Arformoterol Tartrate 15 mcg 03/11/21 20:00 04/03/21 08:16 Arformoterol 15 Mcg/2 Ml Nebu IH 15 mcg Q12HRT BLANCA Administration Ascorbic Acid 500 mg 03/10/21 14:00 04/03/21 10:00 Ascorbic Acid 500 Mg Tab PO 500 mg BID BLANCA Administration Bisacodyl 10 mg 03/26/21 13:43 03/26/21 13:51 Bisacodyl 10 Mg Rect Supp [place] 10 mg QDAY PRN Administration Constipation Budesonide 0.25 mg 03/11/21 20:00 04/03/21 08:16 Budesonide 0.25 Mg/2 Ml Nebu IH 0.25 mg Q12HRT BLANCA Administration Chlordiazepoxide HCl 75 mg 03/22/21 18:00 04/03/21 18:03 Chlordiazepoxide 25 Mg Cap PO 75 mg Q6HR BLANCA Administration Dextrose 0 ml 03/20/21 10:52 Dextrose 10% *Hypoglycemia IV PRN PRN Hypoglycemia Doxazosin Mesylate 1 mg 03/23/21 14:00 04/03/21 10:14 Doxazosin 1 Mg Tab PO 1 mg QDAY BLANCA Administration Enoxaparin Sodium 30 mg 04/01/21 10:00 04/03/21 09:58 Enoxaparin 30 Mg/0.3 Ml Inj SUB-Q 30 mg Q12HR BLANCA Administration Famotidine 20 mg 03/12/21 22:00 04/03/21 09:59 Famotidine 20 Mg Tab FEEDTUBE 20 mg BID BLANCA Administration Fentanyl 1 applic 03/31/21 15:00 04/03/21 10:36 Fentanyl 75 Mcg/Hr Patch 72hr TD 1 applic Q3D BLANCA Administration Fentanyl 50 mcg 03/31/21 14:41 04/01/21 08:38 Fentanyl 100 Mcg/2 Ml Inj IV 50 mcg Q2H PRN Administration ANALGESIA Furosemide 20 mg 03/30/21 18:00 04/03/21 10:02 Furosemide 20 Mg/2 Ml Inj IV 04/04/21 17:59 20 mg QDAY BLANCA Administration Hydralazine HCl 50 mg 03/23/21 14:26 04/03/21 13:36 Hydralazine 25 Mg Tab PO 50 mg Q8HR BLANCA Administration Hydrophilic Ointment 1 applic 03/10/21 15:39 Lip Therapy Vaseline TP Q2HR PRN Dry Lips Fentanyl Citrate 2,000 mcg in 100 mls @ 5.897 mls/hr 03/10/21 17:00 04/03/21 13:36 Fentanyl Drip Premix IV 1 mcg/kg/hr TITR BLANCA 5.897 mls/hr Administration Protocol 1 MCG/KG/HR Propofol 1,000 mg in 100 mls @ 3.507 mls/hr 03/11/21 17:00 03/22/21 18:02 Diprivan 10 Mg/Ml IV 0 mcg/kg/min TITR BLANCA 0 mls/hr Titration Protocol 5 MCG/KG/MIN Insulin Glargine 15 units 03/29/21 22:00 04/02/21 21:11 Insulin Glargine 100 Units/Ml SUB-Q 15 units QHS BLANCA Administration Insulin Human Lispro 0 unit 03/11/21 18:00 04/03/21 18:03 Insulin Lispro 100 Unit/Ml SUB-Q 3 unit Q6HR BLANCA Administration Protocol Labetalol HCl 10 mg 03/12/21 21:13 03/21/21 16:54 Labetalol 20 Mg/4 Ml Inj IV 10 mg Q6H PRN Administration Blood Pressure Metoprolol Tartrate 12.5 mg 03/21/21 22:00 04/03/21 10:00 Metoprolol Tartrate 25 Mg Tab PO 12.5 mg BID BLANCA Administration Midazolam HCl 2 mg 03/15/21 08:49 03/31/21 21:33 Midazolam 2 Mg/2 Ml Inj IV 2 mg Q2H PRN Administration VENT SYNCHRONY Multi-Ingred Cream/Lotion/Oil/Oint 1 applic 03/10/21 15:39 Mineral Oil/Petrolatum, White Ophth Oint 3.5 Gm OU Q4HR PRN Dry Eye(s) Ondansetron HCl 4 mg 03/09/21 01:26 Ondansetron 4 Mg/2 Ml Inj IV Q8H PRN Nausea And Vomiting Oxycodone HCl 5 mg 03/30/21 12:14 03/31/21 07:45 Oxycodone 5 Mg Tab PO 5 mg Q6H PRN Administration Pain, Moderate (4-6) Phenyleph/Shark Oil/Min Oil/Petrol 1 applic 03/22/21 17:35 03/31/21 18:20 Pe/Mo/Pet,Wh 10 Applic/28 Gm Tube [place] 1 applic Q6HR PRN Administration Hemorrhoids Polyethylene Glycol 17 gm 04/02/21 10:00 04/03/21 09:59 Polyethylene Glycol 3350 17 Gm Powder FEEDTUBE 17 gm QDAY BLANCA Administration Prednisone 10 mg 03/29/21 10:00 04/03/21 09:59 Prednisone 10 Mg Tab PO 10 mg DAILY BLANCA Administration Quetiapine Fumarate 300 mg 03/21/21 22:00 04/03/21 09:59 Quetiapine 100 Mg Tab PO 300 mg BID BLANCA Administration Senna/Docusate Sodium 2 tab 04/02/21 10:00 04/03/21 09:59 Sennosides/Docusate Sodium 8.6/50 Mg Tab FEEDTUBE 2 tab BID BLANCA Administration Sodium Chloride 10 ml 03/09/21 10:00 04/03/21 10:35 Sodium Chloride 0.9% 10 Ml Flush Syringe IV 10 ml BID BLANCA Administration Sodium Chloride 10 ml 03/09/21 01:26 04/02/21 21:13 Sodium Chloride 0.9% 10 Ml Flush Syringe IV 10 ml PRN PRN Administration LINE FLUSH Sodium Chloride 10 ml 03/20/21 09:48 Sodium Chloride 0.9% 50 Ml Ivpb IV PRN PRN FLUSH Zinc Sulfate 220 mg 03/10/21 14:00 04/03/21 09:58 Zinc Sulfate 220 Mg Cap PO 220 mg BID BLANCA Administration Nutrition/Malnutrition Assess - Dietary Evaluation Nutrition/Malnutrition Findings: Nutrition Notes Start: 03/09/21 08:49 Freq: Status: Active Protocol: Document 03/31/21 14:51 BRIAN (Rec: 03/31/21 14:52 GALEANN [id number]) Nutrition Notes Initial or Follow up Reassessment Current Diagnosis Diabetes,Sepsis,Hypertension, Respiratory Failure Other Pertinent Diagnosis COVID-19, Bilateral Pneumonia. Current Diet TF-Glucerna 1.2 at 70 ml/hr Labs/Tests Na 140 yesterday Pertinent Medications Lasix, Reglan, Prednisone Height 5 ft 11 in Weight 122 kg [place] Body Weight (kg) 78.18 BMI 37.5 Weight Status Obese Subjective/Other Information Pt remains on vent support. Trach and PEG placed on /. Per RN, pt tolerating TF at goal rate. Percent of energy/protein needs met: 82% energy 78% pro Burn Absent Trauma Absent #1 Nutrition Diagnosis Inadequate oral intake Diagnosis Progress(for reassessment Continues documentation) Is patient on ventilator? Yes Is Patient Ambulatory and/or Out of Bed No REE-([facility]-confined to bed) 8622.140 Calculation Used for Recommendations 70-80% energy needs Additional Notes Energy needs: 5627-6479 kcal/ day Pro needs 1.3g/kg adjBW: 130g/ day Fluid needs 1ml/kcal Nutrition Intervention Nutrition Support: Continue Glucerna 1.2 at 70ml/ hr with 110ml water flush q4h. Kcal 2,016 Protein (gm) 101 Carbohydrates (gm) 192 Fat (gm) 101 Fluid (mL) 1,352 Fiber (gm) 27 Goal #1 TF tolerance Goal #2 TF to meet at least 75% energy and pro needs Follow-Up By: 04/07/21 Additional Comments F/U: stable TF, vent status, wt
--- NOTE | 2021-03-23 15:25 | Consultation ---
History of Present Illness Consult date: 03/23/21 Chief complaint: vent - History of present illness History of present illness: 61-year-old male with past medical history of hypertension, diabetes who was admitted on 03/09/2021. She presented to the emergency room with shortness of breath, hypoxia, feeling ill. Patient was put on supplemental oxygen, BiPAP. Chest x-ray was concerning for Covid. Patient tested positive for COVID-19 pneumonia. Patient's respiratory status decompensated he was intubated on 03/10/2021. He has not been able to be weaned from the ventilator. Tracheostomy and PEG tube are requested by Dr. Corbett. Patient's FiO2 requirements have been fluctuating, however right now he is on 50% FiO2 and PEEP of 8. He is tolerating tube feeds at 40 cc an hour. Past History Past Medical History: diabetes, hypertension Family history: hypertension Medications and Allergies Allergies Allergy/AdvReac Type Severity Reaction Status Date / Time No Known Allergies Allergy Verified 03/08/21 20:25 Home Medications Medication Instructions Recorded Confirmed Last Taken Type No Known Home Medications [No 03/11/21 03/11/21 Unknown History Reported Home Medications] Active Meds: Active Medications Acetaminophen (Acetaminophen 325 Mg Tab) 650 mg PO Q4H PRN PRN Reason: Pain MILD(1-3)/Fever >100.5/RAYO Last Admin: 03/23/21 10:03 Dose: 650 mg Albuterol (Albuterol 2.5 Mg/3 Ml Nebu) 2.5 mg IH Q4HRT PRN PRN Reason: Shortness Of Breath Last Admin: 03/18/21 21:06 Dose: 2.5 mg Arformoterol Tartrate (Arformoterol 15 Mcg/2 Ml Nebu) 15 mcg IH Q12HRT [facility] Last Admin: 03/23/21 07:51 Dose: Not Given Ascorbic Acid (Ascorbic Acid 500 Mg Tab) 500 mg PO BID [facility] Last Admin: 03/23/21 10:04 Dose: 500 mg Budesonide (Budesonide 0.25 Mg/2 Ml Nebu) 0.25 mg IH Q12HRT [facility] Last Admin: 03/23/21 07:51 Dose: Not Given Chlordiazepoxide HCl (Chlordiazepoxide 25 Mg Cap) 75 mg PO Q6HR [facility] Last Admin: 03/23/21 11:40 Dose: 75 mg Dextrose (Dextrose 10% *Hypoglycemia) 0 ml IV PRN PRN PRN Reason: Hypoglycemia Doxazosin Mesylate (Doxazosin 1 Mg Tab) 1 mg PO QDAY [facility] Last Admin: 03/23/21 14:00 Dose: Not Given Enoxaparin Sodium (Enoxaparin 60 Mg/0.6 Ml Inj) 60 mg SUB-Q QDAY [facility]; Protocol Famotidine (Famotidine 20 Mg Tab) 20 mg FEEDTUBE BID [facility] Last Admin: 03/23/21 10:04 Dose: 20 mg Hydralazine HCl (Hydralazine 25 Mg Tab) 50 mg PO Q8HR [facility] Hydrophilic Ointment (Lip Therapy Vaseline) 1 applic TP Q2HR PRN PRN Reason: Dry Lips Fentanyl Citrate (Fentanyl Drip Premix) 2,000 mcg in 100 mls @ 5.897 mls/hr IV TITR [facility]; Protocol Last Titration: 03/23/21 11:50 Dose: 1 mcg/kg/hr, 5.897 mls/hr Propofol (Diprivan 10 Mg/Ml) 1,000 mg in 100 mls @ 3.507 mls/hr IV TITR [facility]; Protocol Last Titration: 03/22/21 18:02 Dose: 0 mcg/kg/min, 0 mls/hr Insulin Glargine (Insulin Glargine 100 Units/Ml) 25 units SUB-Q BID [facility] Last Admin: 03/23/21 10:04 Dose: 25 units Insulin Human Lispro (Insulin Lispro 100 Unit/Ml) 0 unit SUB-Q Q6HR [facility]; Protoc ol Last Admin: 03/23/21 11:45 Dose: 3 unit Labetalol HCl (Labetalol 20 Mg/4 Ml Inj) 10 mg IV Q6H PRN PRN Reason: Blood Pressure Last Admin: 03/21/21 16:54 Dose: 10 mg Methylprednisolone Sodium Succinate (Methylprednisolone Sod Succinate 40 Mg/1 Ml Inj) 40 mg IV Q8HR [facility] Stop: 03/24/21 05:59 Last Admin: 03/23/21 14:28 Dose: 40 mg Methylprednisolone Sodium Succinate (Methylprednisolone Sod Succinate 40 Mg/1 Ml Inj) 40 mg IV Q12HR [facility] Stop: 03/26/21 22:01 Methylprednisolone Sodium Succinate (Methylprednisolone Sod Succinate 40 Mg/1 Ml Inj) 40 mg IV Q24HR [facility] Stop: 03/28/21 10:01 Metoprolol Tartrate (Metoprolol Tartrate 25 Mg Tab) 12.5 mg PO BID [facility] Last Admin: 03/23/21 10:03 Dose: 12.5 mg Midazolam HCl (Midazolam 2 Mg/2 Ml Inj) 2 mg IV Q2H PRN PRN Reason: VENT SYNCHRONY Last Admin: 03/23/21 07:58 Dose: 2 mg Multi-Ingred Cream/Lotion/Oil/Oint (Mineral Oil/Petrolatum, White Ophth Oint 3.5 Gm) 1 applic OU Q4HR PRN PRN Reason: Dry Eye(s) Ondansetron HCl (Ondansetron 4 Mg/2 Ml Inj) 4 mg IV Q8H PRN PRN Reason: Nausea And Vomiting Phenyleph/Shark Oil/Min Oil/Petrol (Pe/Mo/Pet,Wh 10 Applic/28 Gm Tube) 1 applic [place] Q6HR PRN PRN Reason: Hemorrhoids Prednisone (Prednisone 10 Mg Tab) 10 mg PO DAILY [facility] Quetiapine Fumarate (Quetiapine 100 Mg Tab) 300 mg PO BID [facility] Last Admin: 03/23/21 10:04 Dose: 300 mg Senna/Docusate Sodium (Sennosides/Docusate Sodium 8.6/50 Mg Tab) 1 tab FEEDTUBE BID [facility] Last Admin: 03/23/21 10:04 Dose: 1 tab Sodium Chloride (Sodium Chloride 0.9% 10 Ml Flush Syringe) 10 ml IV BID [facility] Last Admin: 03/23/21 10:04 Dose: Not Given Sodium Chloride (Sodium Chloride 0.9% 10 Ml Flush Syringe) 10 ml IV PRN PRN PRN Reason: LINE FLUSH Sodium Chloride (Sodium Chloride 0.9% 50 Ml Ivpb) 10 ml IV PRN PRN PRN Reason: FLUSH Trimethoprim/Sulfamethoxazole (Sulfamethoxazole/Trimethoprim 800/160mg Ds Tab) 1 each PO Q12HR [facility]; Protocol Last Admin: 03/23/21 10:03 Dose: 1 each Zinc Sulfate (Zinc Sulfate 220 Mg Cap) 220 mg PO BID [facility] Last Admin: 03/23/21 10:04 Dose: 220 mg Review of Systems ROS unobtainable: due to endotracheal tube Exam Vital Signs Temp Pulse Resp BP Pulse Ox 98.4 F 108 H 30 H 130/86 88 03/08/21 19:30 03/08/21 19:30 03/08/21 19:30 03/08/21 19:30 03/08/21 19:30 Narrative exam: Gen.: Intubated, on vent, unresponsive. No apparent distress ENT: Trachea midline. No pulsatile masses. ET tube and OG tube in place. no lymphadenopathy. No scleral icterus or conjunctival pallor CV: S1, S2 present Respiratory: No audible wheezes Abdomen: Soft, nondistended, nontender. No rebound, rigidity, guarding Extremities: No clubbing, cyanosis, edema Results - Labs 03/23/21 07:04 03/23/21 07:04 Abnormal lab results 03/22/21 03/22/21 03/22/21 Range/Units 16:01 21:13 23:48 WBC (4.5-11.0) K/mm3 MCV (84-94) fl RDW (13.2-15.2) % ABG pH (7.350-7.450) pH Units ABG pO2 (80.0-90.0) mm Hg ABG HCO3 (20.0-26.0) mmol/L ABG Base Excess (-2.0-3.0) mmol/L ABG Hemoglobin (14.0-18.0) gm/dl Sodium (137-145) mmol/L Chloride (98-107) mmol/L Carbon Dioxide (22-30) mmol/L BUN (9-20) mg/dL Glucose (75-100) mg/dL POC Glucose 148 H 121 H 114 H (70-105) mg/dL Magnesium (1.7-2.3) mg/dL 03/23/21 03/23/21 03/23/21 Range/Units 07:04 07:04 08:35 WBC 11.7 H (4.5-11.0) K/mm3 MCV 95 H (84-94) fl RDW 16.1 H (13.2-15.2) % ABG pH 7.345 L (7.350-7.450) pH Units ABG pO2 167.9 H (80.0-90.0) mm Hg ABG HCO3 32.2 H (20.0-26.0) mmol/L ABG Base Excess 4.8 H (-2.0-3.0) mmol/L ABG Hemoglobin 13.4 L (14.0-18.0) gm/dl Sodium 148 H (137-145) mmol/L Chloride 111.3 H (98-107) mmol/L Carbon Dioxide 31 H (22-30) mmol/L BUN 31 H (9-20) mg/dL Glucose 131 H (75-100) mg/dL POC Glucose (70-105) mg/dL Magnesium 2.50 H (1.7-2.3) mg/dL 03/23/21 Range/Units 11:19 WBC (4.5-11.0) K/mm3 MCV (84-94) fl RDW (13.2-15.2) % ABG pH (7.350-7.450) pH Units ABG pO2 (80.0-90.0) mm Hg ABG HCO3 (20.0-26.0) mmol/L ABG Base Excess (-2.0-3.0) mmol/L ABG Hemoglobin (14.0-18.0) gm/dl Sodium (137-145) mmol/L Chloride (98-107) mmol/L Carbon Dioxide (22-30) mmol/L BUN (9-20) mg/dL Glucose (75-100) mg/dL POC Glucose 165 H (70-105) mg/dL Magnesium (1.7-2.3) mg/dL Diabetes panel 03/23/21 Range/Units 07:04 Sodium 148 H (137-145) mmol/L Potassium 4.9 (3.6-5.0) mmol/L Chloride 111.3 H (98-107) mmol/L Carbon Dioxide 31 H (22-30) mmol/L BUN 31 H (9-20) mg/dL Creatinine 0.8 (0.8-1.3) mg/dL Glucose 131 H (75-100) mg/dL Calcium 8.9 (8.4-10.2) mg/dL Calcium panel 03/23/21 Range/Units 07:04 Calcium 8.9 (8.4-10.2) mg/dL Phosphorus 3.20 D (2.5-4.5) mg/dL Pituitary panel 03/23/21 Range/Units 07:04 Sodium 148 H (137-145) mmol/L Potassium 4.9 (3.6-5.0) mmol/L Chloride 111.3 H (98-107) mmol/L Carbon Dioxide 31 H (22-30) mmol/L BUN 31 H (9-20) mg/dL Creatinine 0.8 (0.8-1.3) mg/dL Glucose 131 H (75-100) mg/dL Calcium 8.9 (8.4-10.2) mg/dL Adrenal panel 03/23/21 Range/Units 07:04 Sodium 148 H (137-145) mmol/L Potassium 4.9 (3.6-5.0) mmol/L Chloride 111.3 H (98-107) mmol/L Carbon Dioxide 31 H (22-30) mmol/L BUN 31 H (9-20) mg/dL Creatinine 0.8 (0.8-1.3) mg/dL Glucose 131 H (75-100) mg/dL Calcium 8.9 (8.4-10.2) mg/dL - Imaging Chest x-ray: report reviewed, image reviewed Abdominal x-ray: report reviewed, image reviewed Assessment and Plan 61-year-old male with 1. vent dependent respiratory failure 2. COVID 19 Plan: 1. Vent management per ICU team 2. Acceptable candidate for trach/peg. Discussed procedure indication, risks/benefits/alternatives with the patient's over the telephone. All questions answered and she is agreeable to proceed with procedures. Consent obtained. 3. We will schedule for trach and PEG early next week. 4. We will hold tube feeds and Lovenox the day prior to trach/PEG. Thank you for this consultation. Please call with any questions or concerns. Evaluation and treatment of this patient was during the time of the national and state emergency arising from COVID19 coronavirus pandemic. Treatment and procedu res performed meet the current and available best practice and guidelines for patient during the COVID pandemic.
--- NOTE | 2021-03-23 16:39 | Vascular Lab Report ---
DUPLEX DOPPLER LOWER EXTREMITY VEINS, BILATERAL INDICATION / CLINICAL INFORMATION: swelling. TECHNIQUE: Duplex doppler imaging was performed through the veins of both lower extremities using bob ous compression and other maneuvers. COMPARISON: Bilateral lower extremity venous Doppler 03/10/2021. FINDINGS: RIGHT COMMON FEMORAL VEIN: Negative. RIGHT FEMORAL VEIN: Negative. RIGHT POPLITEAL VEIN: Negative. RIGHT CALF VEINS: Negative. LEFT COMMON FEMORAL VEIN: Negative. LEFT FEMORAL VEIN: Negative. LEFT POPLITEAL VEIN: Negative. LEFT CALF VEINS: Negative. Thrombus is again visualized within the left gastrocnemius vein, similar t o previous exam. ADDITIONAL FINDINGS: None. IMPRESSION: 1. No sonographic evidence for DVT in either lower extremity. 2. Superficial thrombus within the left gastrocnemius vein appears similar to previous exam. Scribed by: Sarah Soliz RDMS, RVT Scribed: 03/23/2021 3:32 PM I have reviewed the images, agree with this report, and edited this report as needed. Signer Name: Harjinder Cartwright MD Signed: 03/23/2021 4:35 PM Workstation Name: [id number]
[2021-03-24 05:25] LABS: Hematocrit 40.8 % (35.5-45.6); Hemoglobin 12.8 gm/dl (11.8-15.2); Mean Corpuscular HGB Conc 31 % (32-34); Mean Corpuscular Volume 94 fl (84-94); Platelet Count 171 K/mm3 (140-440); Red Blood Count 4.35 M/mm3 (3.65-5.03); Red Cell Distribution Width 16.1 % (13.2-15.2)
[2021-03-24 05:39] LABS: BUN/Creatinine Ratio 40; Blood Urea Nitrogen 28 mg/dL (9-20); Hemolysis Index 9
[2021-03-24] MEDS: chlordiazePOXIDE 25 MG CAP PO SCH ×4 (06:01→19:00)
[2021-03-24] MEDS: hydrALAZINE 25 MG TAB PO SCH ×3 (06:01→21:01)
[2021-03-24] MEDS: INSULIN LISPRO 100 UNIT/ML SUB-Q SCH ×4 (06:07→18:32)
[2021-03-24] MEDS: fentaNYL DRIP Premix 2,000 MCG/100 ML BAG IV SCH ×3 (07:25→23:36)
[2021-03-24] MEDS ORDERED: SODIUM POLYSTYRENE 15 GM/60 ML ORAL LIQD PO SCH (08:30)
[2021-03-24] MEDS: BUDESONIDE 0.25 MG/2 ML NEBU IH SCH ×2 (08:59→19:39)
[2021-03-24] MEDS: ARFORMOTEROL 15 MCG/2 ML NEBU IH SCH ×2 (08:59→19:39)
[2021-03-24] MEDS: METOPROLOL TARTRATE 25 MG TAB PO SCH ×2 (09:42→21:00)
[2021-03-24] MEDS: ASCORBIC ACID 500 MG TAB PO SCH ×2 (09:42→21:00)
[2021-03-24] MEDS: SENNOSIDES/DOCUSATE SODIUM 8.6/50 MG TAB FEEDTUBE SCH ×2 (09:42→21:00)
[2021-03-24] MEDS: ENOXAPARIN 60 MG/0.6 ML INJ SUB-Q SCH (09:42)
[2021-03-24] MEDS: FAMOTIDINE 20 MG TAB FEEDTUBE SCH ×2 (09:42→21:00)
[2021-03-24] MEDS: SULFAMETHOXAZOLE/TRIMETHOPRIM 800/160MG DS TAB PO SCH ×2 (09:42→21:01)
[2021-03-24] MEDS: QUEtiapine 100 MG TAB PO SCH ×2 (09:43→21:00)
[2021-03-24] MEDS: ZINC SULFATE 220 MG CAP PO SCH ×2 (09:43→21:01)
[2021-03-24] MEDS: DOXAZOSIN 1 MG TAB PO SCH (09:43)
[2021-03-24] MEDS: INSULIN GLARGINE 100 UNITS/ML SUB-Q SCH ×2 (09:44→21:03)
[2021-03-24] MEDS ORDERED: methylPREDNISolone Sod Succinate 40 MG/1 ML INJ IV SCH (10:00)
--- NOTE | 2021-03-24 13:47 | Progress Note ---
Assessment and Plan Acute hypoxemic respiratory failure, on continuous noninvasive ventilation COVID-19 infection Bilateral pneumonia History of diabetes Obesity Hypertension Leukocytosis Possible venous thromboembolic phenomena with significantly elevated D-dimers DM II Elevated serum inflammatory markers to include CRP levels, ferritin and LDH - ETT day # 15; awaiting tracheostomy - repeat lower extremity dopplers negative; will change to prophylaxis dose anticoagulation - continue Doxazosin re: Urinary retention - pull yusuf after 48 hours - continue Daily SAT and SBT assessment as tolerated - continue care as below otherwise; - continue to wean supplemental oxygen for target O2 sat's > 90% acutely - VAP bundle addressed - continue lung protective strategies - continue bronchodilators with pulmonary hygiene per RT - wean per pulmonary driven protocols otherwise - continue accuchecks with glycemic control per SSI (While critically ill target blood glucose of 140-180 mg/dL; avoid hypoglycemia) - sedation prn for target RASS 0 to -1 - avoid nephrotoxins, renally dose all medications - avoid benzodiazepine's, reduce the possibility of delirium - AB's per ID rec's - prn analgesia per pain score - Maintenance of sleep-wake cycle, avoid delirium - G.I. & VTE prophylaxis - PT/OT/ROM exercises - mobility protocols for pressure ulcer prophylaxis - Monitor hemodynamics closely - continue other care per attending / other consultants - discharge planning ongoing concurrently COVID SPECIFIC INTERVENTIONS - Remdesivir as per ID/Pulmonary developed protocols (received) - continue systemic steroids for severe COVID-19 infection empirically (Decadron) - follow repeat COVID tests results - zinc and vitamin C supplementation - Monitor inflammatory markers per facility protocol - ferritin, Ddimer, CRP - therapeutic anticoagulation per system Protocol based on d-dimer and clinical considerations (treatment dose) - Continue contact and airborne isolation .... Re-evaluate in am & prn CONDITION: CRITICAL PROGNOSIS: GUARDED CODE STATUS: FULL CODE The high probability of a clinically significant, sudden or life-threatening deterioration of the [respiratory, cardiovascular & hematologic] system(s) required my full and direct attention, intervention and personal management. The aggregate critical care time was [35] minutes without overlap. Time includes spent on; [x] Data Review and interpretation [x] Patient assessment and monitoring of vital signs [x] Documentation [x] Medication orders and management Subjective Date of service: 03/24/21 Principal diagnosis: COVID-19 infection; DM II; Bilateral pneumonia; Obesity; HTN Interval history: Patient is seen today for: Acute hypoxemic respiratory failure; COVID-19 infection; DM II; Bilateral pneumonia; Obesity; HTN Seen and examined at bedside; 24hour events reviewed; nursing and respiratory care staff consulted; no adverse overnight events reported to me; resting in bed; remains on MVS; seen by general surgery and tentatively for trach and PEG soon; remains a difficult wean; also with mild hyperkalemia Objective Vital Signs - 12hr 03/24/21 03/24/21 03/24/21 02:00 02:15 02:30 Temperature Pulse Rate 94 H 94 H 96 H Pulse Rate [ Bilateral Throughout] Pulse Rate [ From Monitor] Respiratory 14 13 13 Rate Respiratory Rate [Bilateral Throughout] Blood Pressure 124/70 118/73 128/68 O2 Sat by Pulse 93 94 Oximetry 03/24/21 03/24/21 03/24/21 02:45 03:00 03:15 Temperature Pulse Rate 95 H 94 H 95 H Pulse Rate [ Bilateral Throughout] Pulse Rate [ From Monitor] Respiratory 13 13 15 Rate Respiratory Rate [Bilateral Throughout] Blood Pressure 127/73 129/78 131/71 O2 Sat by Pulse 97 93 Oximetry 03/24/21 03/24/21 03/24/21 03:28 03:30 03:45 Temperature 99 F Pulse Rate 106 H 115 H Pulse Rate [ Bilateral Throughout] Pulse Rate [ From Monitor] Respiratory 17 25 H Rate Respiratory Rate [Bilateral Throughout] Blood Pressure 131/71 191/100 O2 Sat by Pulse 98 94 Oximetry 03/24/21 03/24/21 03/24/21 04:00 04:15 04:30 Temperature Pulse Rate 118 H 119 H 120 H Pulse Rate [ Bilateral Throughout] Pulse Rate [ 110 H From Monitor] Respiratory 33 H 30 H 24 Rate Respiratory Rate [Bilateral Throughout] Blood Pressure 189/96 169/110 165/108 O2 Sat by Pulse 93 91 90 Oximetry 03/24/21 03/24/21 03/24/21 04:38 04:45 05:01 Temperature Pulse Rate 124 H 120 H 112 H Pulse Rate [ Bilateral Throughout] Pulse Rate [ From Monitor] Respiratory 30 H 24 Rate Respiratory Rate [Bilateral Throughout] Blood Pressure 165/108 169/103 141/82 O2 Sat by Pulse 99 91 91 Oximetry 03/24/21 03/24/21 03/24/21 05:15 05:30 05:45 Temperature Pulse Rate 111 H 109 H 109 H Pulse Rate [ Bilateral Throughout] Pulse Rate [ From Monitor] Respiratory 22 20 20 Rate Respiratory Rate [Bilateral Throughout] Blood Pressure 142/85 145/80 135/79 O2 Sat by Pulse 91 93 Oximetry 03/24/21 03/24/21 03/24/21 06:00 06:01 06:15 Temperature Pulse Rate 110 H 110 H 110 H Pulse Rate [ Bilateral Throughout] Pulse Rate [ From Monitor] Respiratory 18 19 Rate Respiratory Rate [Bilateral Throughout] Blood Pressure 132/81 132/81 131/71 O2 Sat by Pulse 93 91 Oximetry 03/24/21 03/24/21 03/24/21 06:30 06:45 07:00 Temperature Pulse Rate 109 H 104 H 102 H Pulse Rate [ Bilateral Throughout] Pulse Rate [ From Monitor] Respiratory 20 17 17 Rate Respiratory Rate [Bilateral Throughout] Blood Pressure 124/69 128/72 113/69 O2 Sat by Pulse 91 91 94 Oximetry 03/24/21 03/24/21 03/24/21 07:15 07:48 08:00 Temperature 99.2 F Pulse Rate 102 H 107 H Pulse Rate [ Bilateral Throughout] Pulse Rate [ From Monitor] Respiratory 17 Rate Respiratory Rate [Bilateral Throughout] Blood Pressure 110/68 107/12 O2 Sat by Pulse 91 91 Oximetry 03/24/21 03/24/21 03/24/21 08:59 09:42 09:43 Temperature Pulse Rate 112 H 113 H Pulse Rate [ 107 H Bilateral Throughout] Pulse Rate [ From Monitor] Respiratory Rate Respiratory 20 Rate [Bilateral Throughout] Blood Pressure 144/87 144/87 O2 Sat by Pulse Oximetry 03/24/21 03/24/21 12:00 12:30 Temperature 98.1 F Pulse Rate 99 H Pulse Rate [ Bilateral Throughout] Pulse Rate [ From Monitor] Respiratory Rate Respiratory Rate [Bilateral Throughout] Blood Pressure 144/87 O2 Sat by Pulse 95 Oximetry Constitutional: no acute distress (sedated), other (elderly obese male with mildly increased respiratory effort at rest on MVS) Eyes: non-icteric ENT: oropharynx moist, other (ETT 24 cm CHAITANYA) Neck: supple, no lymphadenopathy, no JVD, other (large circumference) Effort: normal Ascultation: Bilateral: diminished breath sounds, rhonchi Percussion: Bilateral: not dull Cardiovascular: regular rate and rhythm, other (tachycardia, S1,S2) Gastrointestinal: normoactive bowel sounds, soft, non-tender, non-distended (protuberant) Integumentary: normal Extremities: no cyanosis, pulses normal, no ischemia or petechiae, edema Neurologic: non-focal exam (grossly), pupils equal and round, unable to assess, other (sedated) Psychiatric: other (unable to assess re: AMS) CBC and BMP: 03/24/21 04:34 03/24/21 04:34 ABG, PT/INR, D-dimer: ABG ABG pH 7.345 pH Units (7.350-7.450) L 03/23/21 08:35 POC ABG pCO2 71.9 mmHg (32.0-48.0) H 03/12/21 21:54 ABG pCO2 60.4 mm Hg 03/23/21 08:35 POC ABG pO2 53.6 mmHg (83-108) L 03/12/21 21:54 ABG pO2 167.9 mm Hg (80.0-90.0) H 03/23/21 08:35 POC ABG HCO3 30.0 03/12/21 21:54 ABG O2 Saturation 98.9 % (95.0-99.0) 03/23/21 08:35 PT/INR, D-dimer PT 16.1 Sec. (12.2-14.9) H 03/08/21 20:24 INR 1.17 (0.87-1.13) H 03/08/21 20:24 D-Dimer 1359.12 ng/mlDDU (0-234) H 03/17/21 04:40 Abnormal lab findings: Abnormal Labs 03/08/21 03/08/21 03/08/21 20:24 20:24 20:24 WBC 22.6 H RBC 5.44 H Hgb 15.7 H Hct 49.2 H MCV MCHC RDW Lymph % (Auto) [place] % (Auto) [place] # (Auto) Seg Neutrophils % Seg Neuts % (Manual) 83.0 H Lymphocytes % (Manual) 9.0 L Monocytes % (Manual) 8.0 H Nucleated RBC % Seg Neutrophils # Seg Neutrophils # Man 18.8 H Lymphocytes # (Manual) Monocytes # (Manual) 1.8 H PT 16.1 H INR 1.17 H D-Dimer > 94148 H ABG pH POC ABG pCO2 POC ABG pO2 ABG pO2 ABG HCO3 ABG O2 Saturation ABG Base Excess ABG Hemoglobin ABG Oxyhemoglobin ABG Sodium ABG Potassium ABG Glucose Oxyhemoglobin Sodium 136 L Potassium Chloride 93.9 L Carbon Dioxide BUN 29 H Creatinine Glucose 208 H POC Glucose Lactic Acid Phosphorus Magnesium Ferritin Lactate Dehydrogenase 624 H C-Reactive Protein 18.00 H NT-Pro-B Natriuret Pep 1053 H Total Protein Albumin Triglycerides Arterial Blood Glucose Ur Specific [place] Coronavirus (PCR) 03/08/21 03/08/21 03/09/21 20:24 20:24 04:10 WBC RBC Hgb Hct MCV MCHC RDW Lymph % (Auto) [place] % (Auto) [place] # (Auto) Seg Neutrophils % Seg Neuts % (Manual) Lymphocytes % (Manual) Monocytes % (Manual) Nucleated RBC % Seg Neutrophils # Seg Neutrophils # Man Lymphocytes # (Manual) Monocytes # (Manual) PT INR D-Dimer ABG pH POC ABG pCO2 POC ABG pO2 ABG pO2 ABG HCO3 ABG O2 Saturation ABG Base Excess ABG Hemoglobin ABG Oxyhemoglobin ABG Sodium ABG Potassium ABG Glucose Oxyhemoglobin Sodium Potassium Chloride Carbon Dioxide BUN Creatinine Glucose POC Glucose Lactic Acid 2.10 H* Phosphorus Magnesium Ferritin 877.5 H Lactate Dehydrogenase C-Reactive Protein NT-Pro-B Natriuret Pep Total Protein Albumin Triglycerides Arterial Blood Glucose Ur Specific [place] 1.041 H Coronavirus (PCR) 03/09/21 03/09/21 03/09/21 07:46 08:00 13:01 WBC RBC Hgb Hct MCV MCHC RDW Lymph % (Auto) [place] % (Auto) [place] # (Auto) Seg Neutrophils % Seg Neuts % (Manual) Lymphocytes % (Manual) Monocytes % (Manual) Nucleated RBC % Seg Neutrophils # Seg Neutrophils # Man Lymphocytes # (Manual) Monocytes # (Manual) PT INR D-Dimer ABG pH POC ABG pCO2 POC ABG pO2 ABG pO2 ABG HCO3 ABG O2 Saturation ABG Base Excess ABG Hemoglobin ABG Oxyhemoglobin ABG Sodium ABG Potassium ABG Glucose Oxyhemoglobin Sodium Potassium Chloride Carbon Dioxide BUN Creatinine Glucose POC Glucose 191 H 182 H Lactic Acid Phosphorus Magnesium Ferritin Lactate Dehydrogenase C-Reactive Protein NT-Pro-B Natriuret Pep Total Protein Albumin Triglycerides Arterial Blood Glucose Ur Specific [place] Coronavirus (PCR) Positive A 03/09/21 03/09/21 03/09/21 15:19 17:48 18:10 WBC RBC Hgb Hct MCV MCHC RDW Lymph % (Auto) [place] % (Auto) [place] # (Auto) Seg Neutrophils % Seg Neuts % (Manual) Lymphocytes % (Manual) Monocytes % (Manual) Nucleated RBC % Seg Neutrophils # Seg Neutrophils # Man Lymphocytes # (Manual) Monocytes # (Manual) PT INR D-Dimer ABG pH POC ABG pCO2 POC ABG pO2 ABG pO2 47.3 L ABG HCO3 26.3 H ABG O2 Saturation 83.7 L ABG Base Excess ABG Hemoglobin ABG Oxyhemoglobin ABG Sodium ABG Potassium ABG Glucose Oxyhemoglobin 82.1 L Sodium Potassium Chloride Carbon Dioxide BUN 29 H Creatinine Glucose 214 H POC Glucose 194 H Lactic Acid Phosphorus Magnesium Ferritin Lactate Dehydrogenase C-Reactive Protein NT-Pro-B Natriuret Pep Total Protein Albumin 3.4 L Triglycerides Arterial Blood Glucose Ur Specific [place] Coronavirus (PCR) 03/09/21 03/10/21 03/10/21 20:40 04:29 04:29 WBC 20.6 H RBC 5.07 H Hgb Hct 46.2 H MCV MCHC RDW Lymph % (Auto) [place] % (Auto) [place] # (Auto) Seg Neutrophils % Seg Neuts % (Manual) 94.0 H Lymphocytes % (Manual) 1.0 L Monocytes % (Manual) Nucleated RBC % 3.0 H Seg Neutrophils # Seg Neutrophils # Man 19.4 H Lymphocytes # (Manual) 0.2 L Monocytes # (Manual) 1.0 H PT INR D-Dimer ABG pH POC ABG pCO2 POC ABG pO2 ABG pO2 ABG HCO3 ABG O2 Saturation ABG Base Excess ABG Hemoglobin ABG Oxyhemoglobin ABG Sodium ABG Potassium ABG Glucose Oxyhemoglobin Sodium Potassium Chloride Carbon Dioxide BUN 29 H Creatinine Glucose 188 H POC Glucose 176 H Lactic Acid Phosphorus Magnesium Ferritin Lactate Dehydrogenase C-Reactive Protein NT-Pro-B Natriuret Pep Total Protein Albumin 3.3 L Triglycerides Arterial Blood Glucose Ur Specific [place] Coronavirus (PCR) 03/10/21 03/10/21 03/10/21 05:22 10:27 15:25 WBC RBC Hgb Hct MCV MCHC RDW Lymph % (Auto) [place] % (Auto) [place] # (Auto) Seg Neutrophils % Seg Neuts % (Manual) Lymphocytes % (Manual) Monocytes % (Manual) Nucleated RBC % Seg Neutrophils # Seg Neutrophils # Man Lymphocytes # (Manual) Monocytes # (Manual) PT INR D-Dimer ABG pH 7.488 H 7.488 H POC ABG pCO2 POC ABG pO2 ABG pO2 47.7 L 50.5 L ABG HCO3 ABG O2 Saturation 86.2 L 87.9 L ABG Base Excess ABG Hemoglobin ABG Oxyhemoglobin ABG Sodium ABG Potassium ABG Glucose Oxyhemoglobin 84.6 L 86.2 L Sodium Potassium Chloride Carbon Dioxide BUN Creatinine Glucose POC Glucose 155 H Lactic Acid Phosphorus Magnesium Ferritin Lactate Dehydrogenase C-Reactive Protein NT-Pro-B Natriuret Pep Total Protein Albumin Triglycerides Arterial Blood Glucose Ur Specific [place] Coronavirus (PCR) 03/10/21 03/10/21 03/11/21 18:10 18:55 00:07 WBC RBC Hgb Hct MCV MCHC RDW Lymph % (Auto) [place] % (Auto) [place] # (Auto) Seg Neutrophils % Seg Neuts % (Manual) Lymphocytes % (Manual) Monocytes % (Manual) Nucleated RBC % Seg Neutrophils # Seg Neutrophils # Man Lymphocytes # (Manual) Monocytes # (Manual) PT INR D-Dimer ABG pH 7.343 L POC ABG pCO2 POC ABG pO2 ABG pO2 60.4 L ABG HCO3 27.9 H ABG O2 Saturation 88.7 L ABG Base Excess ABG Hemoglobin ABG Oxyhemoglobin ABG Sodium ABG Potassium ABG Glucose Oxyhemoglobin 86.9 L Sodium Potassium Chloride Carbon Dioxide BUN Creatinine Glucose POC Glucose 187 H 139 H Lactic Acid Phosphorus Magnesium Ferritin Lactate Dehydrogenase C-Reactive Protein NT-Pro-B Natriuret Pep Total Protein Albumin Triglycerides Arterial Blood Glucose Ur Specific [place] Coronavirus (PCR) 03/11/21 03/11/21 03/11/21 02:09 04:28 08:06 WBC RBC Hgb Hct MCV MCHC RDW Lymph % (Auto) [place] % (Auto) [place] # (Auto) Seg Neutrophils % Seg Neuts % (Manual) Lymphocytes % (Manual) Monocytes % (Manual) Nucleated RBC % Seg Neutrophils # Seg Neutrophils # Man Lymphocytes # (Manual) Monocytes # (Manual) PT INR D-Dimer ABG pH 7.277 L POC ABG pCO2 55.9 H POC ABG pO2 54.4 L ABG pO2 ABG HCO3 ABG O2 Saturation ABG Base Excess ABG Hemoglobin ABG Oxyhemoglobin 83.0 L ABG Sodium ABG Potassium 4.8 H ABG Glucose 180 H Oxyhemoglobin Sodium Potassium Chloride Carbon Dioxide BUN 38 H Creatinine Glucose 249 H POC Glucose 278 H Lactic Acid Phosphorus Magnesium Ferritin Lactate Dehydrogenase C-Reactive Protein NT-Pro-B Natriuret Pep Total Protein Albumin 3.2 L Triglycerides Arterial Blood Glucose 180 H Ur Specific [place] Coronavirus (PCR) 03/11/21 03/11/21 03/11/21 11:29 15:06 15:48 WBC RBC Hgb Hct MCV MCHC RDW Lymph % (Auto) [place] % (Auto) [place] # (Auto) Seg Neutrophils % Seg Neuts % (Manual) Lymphocytes % (Manual) Monocytes % (Manual) Nucleated RBC % Seg Neutrophils # Seg Neutrophils # Man Lymphocytes # (Manual) Monocytes # (Manual) PT INR D-Dimer ABG pH 7.260 L POC ABG pCO2 POC ABG pO2 ABG pO2 53.5 L ABG HCO3 29.5 H ABG O2 Saturation 84.0 L ABG Base Excess ABG Hemoglobin ABG Oxyhemoglobin ABG Sodium ABG Potassium ABG Glucose Oxyhemoglobin 82.3 L Sodium Potassium Chloride Carbon Dioxide BUN Creatinine Glucose POC Glucose 288 H 295 H Lactic Acid Phosphorus Magnesium Ferritin Lactate Dehydrogenase C-Reactive Protein NT-Pro-B Natriuret Pep Total Protein Albumin Triglycerides Arterial Blood Glucose Ur Specific [place] Coronavirus (PCR) 03/12/21 03/12/21 03/12/21 00:01 05:24 08:03 WBC RBC Hgb Hct MCV MCHC RDW Lymph % (Auto) [place] % (Auto) [place] # (Auto) Seg Neutrophils % Seg Neuts % (Manual) Lymphocytes % (Manual) Monocytes % (Manual) Nucleated RBC % Seg Neutrophils # Seg Neutrophils # Man Lymphocytes # (Manual) Monocytes # (Manual) PT INR D-Dimer ABG pH POC ABG pCO2 POC ABG pO2 ABG pO2 ABG HCO3 ABG O2 Saturation ABG Base Excess ABG Hemoglobin ABG Oxyhemoglobin ABG Sodium ABG Potassium ABG Glucose Oxyhemoglobin Sodium 135 L Potassium Chloride Carbon Dioxide BUN 48 H Creatinine Glucose 358 H POC Glucose 304 H 310 H Lactic Acid Phosphorus Magnesium Ferritin Lactate Dehydrogenase C-Reactive Protein NT-Pro-B Natriuret Pep Total Protein 6.0 L Albumin 2.9 L Triglycerides Arterial Blood Glucose Ur Specific [place] Coronavirus (PCR) 03/12/21 03/12/21 03/12/21 08:03 10:43 11:31 WBC 14.6 H RBC Hgb Hct MCV MCHC RDW Lymph % (Auto) [place] % (Auto) [place] # (Auto) Seg Neutrophils % Seg Neuts % (Manual) Lymphocytes % (Manual) Monocytes % (Manual) Nucleated RBC % Seg Neutrophils # Seg Neutrophils # Man Lymphocytes # (Manual) Monocytes # (Manual) PT INR D-Dimer ABG pH 7.248 L POC ABG pCO2 POC ABG pO2 ABG pO2 73.7 L ABG HCO3 32.0 H ABG O2 Saturation 93.9 L ABG Base Excess ABG Hemoglobin ABG Oxyhemoglobin ABG Sodium ABG Potassium ABG Glucose Oxyhemoglobin 92.1 L Sodium Potassium Chloride Carbon Dioxide BUN Creatinine Glucose POC Glucose 359 H Lactic Acid Phosphorus Magnesium Ferritin Lactate Dehydrogenase C-Reactive Protein NT-Pro-B Natriuret Pep Total Protein Albumin Triglycerides Arterial Blood Glucose Ur Specific [place] Coronavirus (PCR) 03/12/21 03/12/21 03/13/21 17:20 21:54 00:02 WBC RBC Hgb Hct MCV MCHC RDW Lymph % (Auto) [place] % (Auto) [place] # (Auto) Seg Neutrophils % Seg Neuts % (Manual) Lymphocytes % (Manual) Monocytes % (Manual) Nucleated RBC % Seg Neutrophils # Seg Neutrophils # Man Lymphocytes # (Manual) Monocytes # (Manual) PT INR D-Dimer ABG pH 7.238 L POC ABG pCO2 71.9 H POC ABG pO2 53.6 L ABG pO2 ABG HCO3 ABG O2 Saturation ABG Base Excess ABG Hemoglobin ABG Oxyhemoglobin 84.8 L ABG Sodium 134.2 L ABG Potassium 4.9 H ABG Glucose 306 H Oxyhemoglobin Sodium Potassium Chloride Carbon Dioxide BUN Creatinine Glucose POC Glucose 374 H 308 H Lactic Acid Phosphorus Magnesium Ferritin Lactate Dehydrogenase C-Reactive Protein NT-Pro-B Natriuret Pep Total Protein Albumin Triglycerides Arterial Blood Glucose 306 H Ur Specific [place] Coronavirus (PCR) 03/13/21 03/13/21 03/13/21 05:22 05:44 05:44 WBC 13.9 H RBC Hgb Hct MCV MCHC RDW Lymph % (Auto) [place] % (Auto) [place] # (Auto) Seg Neutrophils % Seg Neuts % (Manual) Lymphocytes % (Manual) Monocytes % (Manual) Nucleated RBC % Seg Neutrophils # Seg Neutrophils # Man Lymphocytes # (Manual) Monocytes # (Manual) PT INR D-Dimer 3567.97 H ABG pH POC ABG pCO2 POC ABG pO2 ABG pO2 ABG HCO3 ABG O2 Saturation ABG Base Excess ABG Hemoglobin ABG Oxyhemoglobin ABG Sodium ABG Potassium ABG Glucose Oxyhemoglobin Sodium Potassium Chloride Carbon Dioxide BUN Creatinine Glucose POC Glucose 316 H Lactic Acid Phosphorus Magnesium Ferritin Lactate Dehydrogenase C-Reactive Protein NT-Pro-B Natriuret Pep Total Protein Albumin Triglycerides Arterial Blood Glucose Ur Specific [place] Coronavirus (PCR) 03/13/21 03/13/21 03/13/21 05:44 05:44 11:15 WBC RBC Hgb Hct MCV MCHC RDW Lymph % (Auto) [place] % (Auto) [place] # (Auto) Seg Neutrophils % Seg Neuts % (Manual) Lymphocytes % (Manual) Monocytes % (Manual) Nucleated RBC % Seg Neutrophils # Seg Neutrophils # Man Lymphocytes # (Manual) Monocytes # (Manual) PT INR D-Dimer ABG pH 7.310 L POC ABG pCO2 POC ABG pO2 ABG pO2 52.3 L ABG HCO3 34.1 H ABG O2 Saturation 86.8 L ABG Base Excess 5.5 H ABG Hemoglobin 13.8 L ABG Oxyhemoglobin ABG Sodium ABG Potassium ABG Glucose Oxyhemoglobin 85.1 L Sodium Potassium Chloride Carbon Dioxide BUN Creatinine Glucose POC Glucose Lactic Acid Phosphorus Magnesium Ferritin 858.7 H Lactate Dehydrogenase 348 H C-Reactive Protein 2.80 H NT-Pro-B Natriuret Pep Total Protein Albumin Triglycerides Arterial Blood Glucose Ur Specific [place] Coronavirus (PCR) 03/13/21 03/13/21 03/13/21 11:21 15:47 19:23 WBC RBC Hgb Hct MCV MCHC RDW Lymph % (Auto) [place] % (Auto) [place] # (Auto) Seg Neutrophils % Seg Neuts % (Manual) Lymphocytes % (Manual) Monocytes % (Manual) Nucleated RBC % Seg Neutrophils # Seg Neutrophils # Man Lymphocytes # (Manual) Monocytes # (Manual) PT INR D-Dimer ABG pH POC ABG pCO2 POC ABG pO2 ABG pO2 ABG HCO3 ABG O2 Saturation ABG Base Excess ABG Hemoglobin ABG Oxyhemoglobin ABG Sodium ABG Potassium ABG Glucose Oxyhemoglobin Sodium 136 L Potassium 5.9 H Chloride Carbon Dioxide BUN 50 H Creatinine Glucose 397 H POC Glucose 322 H 317 H Lactic Acid Phosphorus Magnesium Ferritin Lactate Dehydrogenase C-Reactive Protein NT-Pro-B Natriuret Pep Total Protein Albumin Triglycerides Arterial Blood Glucose Ur Specific [place] Coronavirus (PCR) 03/13/21 03/14/21 03/14/21 23:46 05:32 05:50 WBC 11.6 H RBC Hgb Hct MCV MCHC RDW Lymph % (Auto) [place] % (Auto) [place] # (Auto) Seg Neutrophils % Seg Neuts % (Manual) Lymphocytes % (Manual) Monocytes % (Manual) Nucleated RBC % Seg Neutrophils # Seg Neutrophils # Man Lymphocytes # (Manual) Monocytes # (Manual) PT INR D-Dimer ABG pH POC ABG pCO2 POC ABG pO2 ABG pO2 ABG HCO3 ABG O2 Saturation ABG Base Excess ABG Hemoglobin ABG Oxyhemoglobin ABG Sodium ABG Potassium ABG Glucose Oxyhemoglobin Sodium Potassium Chloride Carbon Dioxide BUN Creatinine Glucose POC Glucose 332 H 316 H Lactic Acid Phosphorus Magnesium Ferritin Lactate Dehydrogenase C-Reactive Protein NT-Pro-B Natriuret Pep Total Protein Albumin Triglycerides Arterial Blood Glucose Ur Specific [place] Coronavirus (PCR) 03/14/21 03/14/21 03/14/21 05:50 11:33 16:53 WBC RBC Hgb Hct MCV MCHC RDW Lymph % (Auto) [place] % (Auto) [place] # (Auto) Seg Neutrophils % Seg Neuts % (Manual) Lymphocytes % (Manual) Monocytes % (Manual) Nucleated RBC % Seg Neutrophils # Seg Neutrophils # Man Lymphocytes # (Manual) Monocytes # (Manual) PT INR D-Dimer ABG pH POC ABG pCO2 POC ABG pO2 ABG pO2 ABG HCO3 ABG O2 Saturation ABG Base Excess ABG Hemoglobin ABG Oxyhemoglobin ABG Sodium ABG Potassium ABG Glucose Oxyhemoglobin Sodium Potassium 5.9 H Chloride Carbon Dioxide 31 H BUN 48 H Creatinine Glucose 380 H POC Glucose 315 H 235 H Lactic Acid Phosphorus Magnesium 3.40 H Ferritin Lactate Dehydrogenase C-Reactive Protein NT-Pro-B Natriuret Pep Total Protein Albumin Triglycerides Arterial Blood Glucose Ur Specific [place] Coronavirus (PCR) 03/14/21 03/14/21 03/15/21 18:34 23:27 01:22 WBC RBC Hgb Hct 46.3 H MCV MCHC RDW Lymph % (Auto) [place] % (Auto) [place] # (Auto) Seg Neutrophils % Seg Neuts % (Manual) Lymphocytes % (Manual) Monocytes % (Manual) Nucleated RBC % Seg Neutrophils # Seg Neutrophils # Man Lymphocytes # (Manual) Monocytes # (Manual) PT INR D-Dimer ABG pH POC ABG pCO2 POC ABG pO2 ABG pO2 ABG HCO3 ABG O2 Saturation ABG Base Excess ABG Hemoglobin ABG Oxyhemoglobin ABG Sodium ABG Potassium ABG Glucose Oxyhemoglobin Sodium 146 H Potassium Chloride Carbon Dioxide 34 H BUN 49 H Creatinine Glucose 285 H POC Glucose 203 H Lactic Acid Phosphorus Magnesium Ferritin Lactate Dehydrogenase C-Reactive Protein NT-Pro-B Natriuret Pep Total Protein Albumin Triglycerides Arterial Blood Glucose Ur Specific [place] Coronavirus (PCR) 03/15/21 03/15/21 03/15/21 04:00 06:06 06:06 WBC RBC Hgb Hct MCV MCHC RDW Lymph % (Auto) [place] % (Auto) [place] # (Auto) Seg Neutrophils % Seg Neuts % (Manual) Lymphocytes % (Manual) Monocytes % (Manual) Nucleated RBC % Seg Neutrophils # Seg Neutrophils # Man Lymphocytes # (Manual) Monocytes # (Manual) PT INR D-Dimer 1781.79 H ABG pH POC ABG pCO2 POC ABG pO2 ABG pO2 ABG HCO3 ABG O2 Saturation ABG Base Excess ABG Hemoglobin ABG Oxyhemoglobin ABG Sodium ABG Potassium ABG Glucose Oxyhemoglobin Sodium 148 H Potassium 5.7 H D Chloride 108.0 H Carbon Dioxide 31 H BUN 46 H Creatinine Glucose 139 H POC Glucose Lactic Acid Phosphorus 4.80 H D Magnesium 3.00 H Ferritin 976.4 H Lactate Dehydrogenase 630 H C-Reactive Protein NT-Pro-B Natriuret Pep Total Protein Albumin Triglycerides Arterial Blood Glucose Ur Specific [place] Coronavirus (PCR) 03/15/21 03/15/21 03/15/21 11:56 14:05 17:09 WBC RBC Hgb Hct MCV MCHC RDW Lymph % (Auto) [place] % (Auto) [place] # (Auto) Seg Neutrophils % Seg Neuts % (Manual) Lymphocytes % (Manual) Monocytes % (Manual) Nucleated RBC % Seg Neutrophils # Seg Neutrophils # Man Lymphocytes # (Manual) Monocytes # (Manual) PT INR D-Dimer ABG pH POC ABG pCO2 POC ABG pO2 ABG pO2 52.1 L ABG HCO3 36.6 H ABG O2 Saturation 87.6 L ABG Base Excess 9.5 H ABG Hemoglobin ABG Oxyhemoglobin ABG Sodium ABG Potassium ABG Glucose Oxyhemoglobin 85.7 L Sodium Potassium Chloride Carbon Dioxide BUN Creatinine Glucose POC Glucose 219 H 263 H Lactic Acid Phosphorus Magnesium Ferritin Lactate Dehydrogenase C-Reactive Protein NT-Pro-B Natriuret Pep Total Protein Albumin Triglycerides Arterial Blood Glucose Ur Specific [place] Coronavirus (PCR) 03/16/21 03/16/21 03/16/21 00:32 04:11 04:11 WBC 11.9 H RBC Hgb Hct MCV MCHC 30 L RDW Lymph % (Auto) [place] % (Auto) [place] # (Auto) Seg Neutrophils % Seg Neuts % (Manual) Lymphocytes % (Manual) Monocytes % (Manual) Nucleated RBC % Seg Neutrophils # Seg Neutrophils # Man Lymphocytes # (Manual) Monocytes # (Manual) PT INR D-Dimer ABG pH POC ABG pCO2 POC ABG pO2 ABG pO2 ABG HCO3 ABG O2 Saturation ABG Base Excess ABG Hemoglobin ABG Oxyhemoglobin ABG Sodium ABG Potassium ABG Glucose Oxyhemoglobin Sodium 151 H Potassium Chloride Carbon Dioxide 35 H BUN 48 H Creatinine Glucose 152 H POC Glucose 165 H Lactic Acid Phosphorus Magnesium Ferritin Lactate Dehydrogenase C-Reactive Protein NT-Pro-B Natriuret Pep Total Protein Albumin Triglycerides Arterial Blood Glucose Ur Specific [place] Coronavirus (PCR) 03/16/21 03/16/21 03/16/21 04:11 05:26 11:35 WBC RBC Hgb Hct MCV MCHC RDW Lymph % (Auto) [place] % (Auto) [place] # (Auto) Seg Neutrophils % Seg Neuts % (Manual) Lymphocytes % (Manual) Monocytes % (Manual) Nucleated RBC % Seg Neutrophils # Seg Neutrophils # Man Lymphocytes # (Manual) Monocytes # (Manual) PT INR D-Dimer ABG pH POC ABG pCO2 POC ABG pO2 ABG pO2 ABG HCO3 ABG O2 Saturation ABG Base Excess ABG Hemoglobin ABG Oxyhemoglobin ABG Sodium ABG Potassium ABG Glucose Oxyhemoglobin Sodium Potassium Chloride Carbon Dioxide BUN Creatinine Glucose POC Glucose 162 H 187 H Lactic Acid Phosphorus Magnesium Ferritin Lactate Dehydrogenase C-Reactive Protein NT-Pro-B Natriuret Pep Total Protein Albumin Triglycerides 267 H Arterial Blood Glucose Ur Specific [place] Coronavirus (PCR) 03/16/21 03/16/21 03/16/21 17:29 22:25 23:22 WBC RBC Hgb Hct MCV MCHC RDW Lymph % (Auto) [place] % (Auto) [place] # (Auto) Seg Neutrophils % Seg Neuts % (Manual) Lymphocytes % (Manual) Monocytes % (Manual) Nucleated RBC % Seg Neutrophils # Seg Neutrophils # Man Lymphocytes # (Manual) Monocytes # (Manual) PT INR D-Dimer ABG pH POC ABG pCO2 POC ABG pO2 ABG pO2 ABG HCO3 ABG O2 Saturation ABG Base Excess ABG Hemoglobin ABG Oxyhemoglobin ABG Sodium ABG Potassium ABG Glucose Oxyhemoglobin Sodium Potassium Chloride Carbon Dioxide BUN Creatinine Glucose POC Glucose 237 H 165 H 189 H Lactic Acid Phosphorus Magnesium Ferritin Lactate Dehydrogenase C-Reactive Protein NT-Pro-B Natriuret Pep Total Protein Albumin Triglycerides Arterial Blood Glucose Ur Specific [place] Coronavirus (PCR) 03/17/21 03/17/21 03/17/21 04:40 04:40 04:40 WBC 14.1 H RBC Hgb Hct MCV MCHC RDW 15.3 H Lymph % (Auto) 12.6 L [place] % (Auto) 11.3 H [place] # (Auto) 1.6 H Seg Neutrophils % 74.9 H Seg Neuts % (Manual) Lymphocytes % (Manual) Monocytes % (Manual) Nucleated RBC % Seg Neutrophils # 10.5 H Seg Neutrophils # Man Lymphocytes # (Manual) Monocytes # (Manual) PT INR D-Dimer 1359.12 H ABG pH POC ABG pCO2 POC ABG pO2 ABG pO2 ABG HCO3 ABG O2 Saturation ABG Base Excess ABG Hemoglobin ABG Oxyhemoglobin ABG Sodium ABG Potassium ABG Glucose Oxyhemoglobin Sodium 148 H Potassium Chloride 107.5 H Carbon Dioxide 33 H BUN 42 H Creatinine Glucose 183 H POC Glucose Lactic Acid Phosphorus Magnesium 2.70 H Ferritin Lactate Dehydrogenase C-Reactive Protein NT-Pro-B Natriuret Pep Total Protein Albumin Triglycerides Arterial Blood Glucose Ur Specific [place] Coronavirus (PCR) 03/17/21 03/17/21 03/17/21 05:53 11:05 11:51 WBC RBC Hgb Hct MCV MCHC RDW Lymph % (Auto) [place] % (Auto) [place] # (Auto) Seg Neutrophils % Seg Neuts % (Manual) Lymphocytes % (Manual) Monocytes % (Manual) Nucleated RBC % Seg Neutrophils # Seg Neutrophils # Man Lymphocytes # (Manual) Monocytes # (Manual) PT INR D-Dimer ABG pH POC ABG pCO2 POC ABG pO2 ABG pO2 ABG HCO3 35.7 H ABG O2 Saturation ABG Base Excess 8.7 H ABG Hemoglobin ABG Oxyhemoglobin ABG Sodium ABG Potassium ABG Glucose Oxyhemoglobin 94.2 L Sodium Potassium Chloride Carbon Dioxide BUN Creatinine Glucose POC Glucose 176 H 197 H Lactic Acid Phosphorus Magnesium Ferritin Lactate Dehydrogenase C-Reactive Protein NT-Pro-B Natriuret Pep Total Protein Albumin Triglycerides Arterial Blood Glucose Ur Specific [place] Coronavirus (PCR) 03/17/21 03/17/21 03/17/21 16:54 21:10 23:33 WBC RBC Hgb Hct MCV MCHC RDW Lymph % (Auto) [place] % (Auto) [place] # (Auto) Seg Neutrophils % Seg Neuts % (Manual) Lymphocytes % (Manual) Monocytes % (Manual) Nucleated RBC % Seg Neutrophils # Seg Neutrophils # Man Lymphocytes # (Manual) Monocytes # (Manual) PT INR D-Dimer ABG pH POC ABG pCO2 POC ABG pO2 ABG pO2 ABG HCO3 ABG O2 Saturation ABG Base Excess ABG Hemoglobin ABG Oxyhemoglobin ABG Sodium ABG Potassium ABG Glucose Oxyhemoglobin Sodium Potassium Chloride Carbon Dioxide BUN Creatinine Glucose POC Glucose 135 H 160 H 138 H Lactic Acid Phosphorus Magnesium Ferritin Lactate Dehydrogenase C-Reactive Protein NT-Pro-B Natriuret Pep Total Protein Albumin Triglycerides Arterial Blood Glucose Ur Specific [place] Coronavirus (PCR) 03/18/21 03/18/21 03/18/21 04:18 04:50 05:43 WBC RBC Hgb Hct MCV MCHC RDW Lymph % (Auto) [place] % (Auto) [place] # (Auto) Seg Neutrophils % Seg Neuts % (Manual) Lymphocytes % (Manual) Monocytes % (Manual) Nucleated RBC % Seg Neutrophils # Seg Neutrophils # Man Lymphocytes # (Manual) Monocytes # (Manual) PT INR D-Dimer ABG pH POC ABG pCO2 POC ABG pO2 ABG pO2 59.8 L ABG HCO3 36.5 H ABG O2 Saturation 90.7 L ABG Base Excess 9.4 H ABG Hemoglobin 12.0 L ABG Oxyhemoglobin ABG Sodium ABG Potassium ABG Glucose Oxyhemoglobin 88.9 L Sodium Potassium Chloride 107.2 H Carbon Dioxide 34 H BUN 38 H Creatinine 0.7 L Glucose 136 H POC Glucose 128 H Lactic Acid Phosphorus Magnesium Ferritin Lactate Dehydrogenase C-Reactive Protein NT-Pro-B Natriuret Pep Total Protein Albumin Triglycerides Arterial Blood Glucose Ur Specific [place] Coronavirus (PCR) 03/18/21 03/18/21 03/18/21 11:20 17:35 23:35 WBC RBC Hgb Hct MCV MCHC RDW Lymph % (Auto) [place] % (Auto) [place] # (Auto) Seg Neutrophils % Seg Neuts % (Manual) Lymphocytes % (Manual) Monocytes % (Manual) Nucleated RBC % Seg Neutrophils # Seg Neutrophils # Man Lymphocytes # (Manual) Monocytes # (Manual) PT INR D-Dimer ABG pH POC ABG pCO2 POC ABG pO2 ABG pO2 70.7 L ABG HCO3 33.6 H ABG O2 Saturation ABG Base Excess 8.0 H ABG Hemoglobin ABG Oxyhemoglobin ABG Sodium ABG Potassium ABG Glucose Oxyhemoglobin 93.7 L Sodium Potassium Chloride Carbon Dioxide BUN Creatinine Glucose POC Glucose 189 H 144 H Lactic Acid Phosphorus Magnesium Ferritin Lactate Dehydrogenase C-Reactive Protein NT-Pro-B Natriuret Pep Total Protein Albumin Triglycerides Arterial Blood Glucose Ur Specific [place] Coronavirus (PCR) 03/19/21 03/19/21 03/19/21 02:35 04:20 04:20 WBC 14.0 H RBC Hgb Hct MCV MCHC RDW Lymph % (Auto) [place] % (Auto) [place] # (Auto) Seg Neutrophils % Seg Neuts % (Manual) Lymphocytes % (Manual) Monocytes % (Manual) Nucleated RBC % Seg Neutrophils # Seg Neutrophils # Man Lymphocytes # (Manual) Monocytes # (Manual) PT INR D-Dimer ABG pH POC ABG pCO2 POC ABG pO2 ABG pO2 ABG HCO3 32.0 H ABG O2 Saturation ABG Base Excess 5.2 H ABG Hemoglobin 13.6 L ABG Oxyhemoglobin ABG Sodium ABG Potassium ABG Glucose Oxyhemoglobin 94.6 L Sodium 146 H Potassium Chloride 109.3 H Carbon Dioxide BUN 36 H Creatinine Glucose 203 H POC Glucose Lactic Acid Phosphorus Magnesium Ferritin Lactate Dehydrogenase C-Reactive Protein NT-Pro-B Natriuret Pep Total Protein Albumin Triglycerides 254 H Arterial Blood Glucose Ur Specific [place] Coronavirus (PCR) 03/19/21 03/19/21 03/19/21 05:45 11:36 23:51 WBC RBC Hgb Hct MCV MCHC RDW Lymph % (Auto) [place] % (Auto) [place] # (Auto) Seg Neutrophils % Seg Neuts % (Manual) Lymphocytes % (Manual) Monocytes % (Manual) Nucleated RBC % Seg Neutrophils # Seg Neutrophils # Man Lymphocytes # (Manual) Monocytes # (Manual) PT INR D-Dimer ABG pH POC ABG pCO2 POC ABG pO2 ABG pO2 ABG HCO3 ABG O2 Saturation ABG Base Excess ABG Hemoglobin ABG Oxyhemoglobin ABG Sodium ABG Potassium ABG Glucose Oxyhemoglobin Sodium Potassium Chloride Carbon Dioxide BUN Creatinine Glucose POC Glucose 164 H 172 H 140 H Lactic Acid Phosphorus Magnesium Ferritin Lactate Dehydrogenase C-Reactive Protein NT-Pro-B Natriuret Pep Total Protein Albumin Triglycerides Arterial Blood Glucose Ur Specific [place] Coronavirus (PCR) 03/20/21 03/20/21 03/20/21 03:29 04:45 04:45 WBC RBC Hgb Hct MCV 95 H MCHC RDW 15.7 H Lymph % (Auto) [place] % (Auto) [place] # (Auto) Seg Neutrophils % Seg Neuts % (Manual) Lymphocytes % (Manual) Monocytes % (Manual) Nucleated RBC % Seg Neutrophils # Seg Neutrophils # Man Lymphocytes # (Manual) Monocytes # (Manual) PT INR D-Dimer ABG pH 7.349 L POC ABG pCO2 POC ABG pO2 ABG pO2 ABG HCO3 33.7 H ABG O2 Saturation ABG Base Excess 6.4 H ABG Hemoglobin 11.8 L ABG Oxyhemoglobin ABG Sodium ABG Potassium ABG Glucose Oxyhemoglobin 93.9 L Sodium 146 H Potassium 5.5 H Chloride 111.1 H Carbon Dioxide BUN 34 H Creatinine 0.7 L Glucose 145 H POC Glucose Lactic Acid Phosphorus Magnesium 2.50 H Ferritin Lactate Dehydrogenase C-Reactive Protein NT-Pro-B Natriuret Pep Total Protein Albumin Triglycerides Arterial Blood Glucose Ur Specific [place] Coronavirus (PCR) 03/20/21 03/20/21 03/20/21 05:41 09:08 11:54 WBC RBC Hgb Hct MCV MCHC RDW Lymph % (Auto) [place] % (Auto) [place] # (Auto) Seg Neutrophils % Seg Neuts % (Manual) Lymphocytes % (Manual) Monocytes % (Manual) Nucleated RBC % Seg Neutrophils # Seg Neutrophils # Man Lymphocytes # (Manual) Monocytes # (Manual) PT INR D-Dimer ABG pH POC ABG pCO2 POC ABG pO2 ABG pO2 ABG HCO3 ABG O2 Saturation ABG Base Excess ABG Hemoglobin ABG Oxyhemoglobin ABG Sodium ABG Potassium ABG Glucose Oxyhemoglobin Sodium Potassium Chloride Carbon Dioxide BUN Creatinine Glucose POC Glucose 108 H 132 H 162 H Lactic Acid Phosphorus Magnesium Ferritin Lactate Dehydrogenase C-Reactive Protein NT-Pro-B Natriuret Pep Total Protein Albumin Triglycerides Arterial Blood Glucose Ur Specific [place] Coronavirus (PCR) 03/20/21 03/21/21 03/21/21 17:28 00:31 04:44 WBC RBC Hgb Hct MCV MCHC RDW Lymph % (Auto) [place] % (Auto) [place] # (Auto) Seg Neutrophils % Seg Neuts % (Manual) Lymphocytes % (Manual) Monocytes % (Manual) Nucleated RBC % Seg Neutrophils # Seg Neutrophils # Man Lymphocytes # (Manual) Monocytes # (Manual) PT INR D-Dimer ABG pH POC ABG pCO2 POC ABG pO2 ABG pO2 ABG HCO3 ABG O2 Saturation ABG Base Excess ABG Hemoglobin ABG Oxyhemoglobin ABG Sodium ABG Potassium ABG Glucose Oxyhemoglobin Sodium Potassium Chloride 108.3 H Carbon Dioxide BUN 30 H Creatinine 0.7 L Glucose POC Glucose 160 H 122 H Lactic Acid Phosphorus Magnesium Ferritin Lactate Dehydrogenase C-Reactive Protein NT-Pro-B Natriuret Pep Total Protein Albumin Triglycerides Arterial Blood Glucose Ur Specific [place] Coronavirus (PCR) 03/21/21 03/21/21 03/21/21 09:18 10:09 13:20 WBC RBC Hgb Hct MCV MCHC RDW Lymph % (Auto) [place] % (Auto) [place] # (Auto) Seg Neutrophils % Seg Neuts % (Manual) Lymphocytes % (Manual) Monocytes % (Manual) Nucleated RBC % Seg Neutrophils # Seg Neutrophils # Man Lymphocytes # (Manual) Monocytes # (Manual) PT INR D-Dimer ABG pH POC ABG pCO2 POC ABG pO2 ABG pO2 60.7 L ABG HCO3 30.6 H ABG O2 Saturation 93.6 L ABG Base Excess 5.3 H ABG Hemoglobin ABG Oxyhemoglobin ABG Sodium ABG Potassium ABG Glucose Oxyhemoglobin 91.7 L Sodium Potassium Chloride Carbon Dioxide BUN Creatinine Glucose POC Glucose 169 H 122 H Lactic Acid Phosphorus Magnesium Ferritin Lactate Dehydrogenase C-Reactive Protein NT-Pro-B Natriuret Pep Total Protein Albumin Triglycerides Arterial Blood Glucose Ur Specific [place] Coronavirus (PCR) 03/21/21 03/21/21 03/21/21 17:25 22:41 23:52 WBC RBC Hgb Hct MCV MCHC RDW Lymph % (Auto) [place] % (Auto) [place] # (Auto) Seg Neutrophils % Seg Neuts % (Manual) Lymphocytes % (Manual) Monocytes % (Manual) Nucleated RBC % Seg Neutrophils # Seg Neutrophils # Man Lymphocytes # (Manual) Monocytes # (Manual) PT INR D-Dimer ABG pH POC ABG pCO2 POC ABG pO2 ABG pO2 ABG HCO3 ABG O2 Saturation ABG Base Excess ABG Hemoglobin ABG Oxyhemoglobin ABG Sodium ABG Potassium ABG Glucose Oxyhemoglobin Sodium Potassium Chloride Carbon Dioxide BUN Creatinine Glucose POC Glucose 121 H 139 H 140 H Lactic Acid Phosphorus Magnesium Ferritin Lactate Dehydrogenase C-Reactive Protein NT-Pro-B Natriuret Pep Total Protein Albumin Triglycerides Arterial Blood Glucose Ur Specific [place] Coronavirus (PCR) 03/22/21 03/22/21 03/22/21 05:58 07:26 07:26 WBC RBC Hgb Hct MCV MCHC 31 L RDW 16.1 H Lymph % (Auto) [place] % (Auto) [place] # (Auto) Seg Neutrophils % Seg Neuts % (Manual) Lymphocytes % (Manual) Monocytes % (Manual) Nucleated RBC % Seg Neutrophils # Seg Neutrophils # Man Lymphocytes # (Manual) Monocytes # (Manual) PT INR D-Dimer ABG pH POC ABG pCO2 POC ABG pO2 ABG pO2 ABG HCO3 ABG O2 Saturation ABG Base Excess ABG Hemoglobin ABG Oxyhemoglobin ABG Sodium ABG Potassium ABG Glucose Oxyhemoglobin Sodium Potassium Chloride 108.5 H Carbon Dioxide BUN 44 H Creatinine Glucose 120 H POC Glucose 131 H Lactic Acid Phosphorus 5.80 H Magnesium 2.80 H Ferritin Lactate Dehydrogenase C-Reactive Protein NT-Pro-B Natriuret Pep Total Protein Albumin Triglycerides 305 H Arterial Blood Glucose Ur Specific [place] Coronavirus (PCR) 03/22/21 03/22/21 03/22/21 09:38 11:15 16:01 WBC RBC Hgb Hct MCV MCHC RDW Lymph % (Auto) [place] % (Auto) [place] # (Auto) Seg Neutrophils % Seg Neuts % (Manual) Lymphocytes % (Manual) Monocytes % (Manual) Nucleated RBC % Seg Neutrophils # Seg Neutrophils # Man Lymphocytes # (Manual) Monocytes # (Manual) PT INR D-Dimer ABG pH POC ABG pCO2 POC ABG pO2 ABG pO2 70.0 L ABG HCO3 30.0 H ABG O2 Saturation 94.6 L ABG Base Excess 3.6 H ABG Hemoglobin 13.5 L ABG Oxyhemoglobin ABG Sodium ABG Potassium ABG Glucose Oxyhemoglobin 92.5 L Sodium Potassium Chloride Carbon Dioxide BUN Creatinine Glucose POC Glucose 186 H 148 H Lactic Acid Phosphorus Magnesium Ferritin Lactate Dehydrogenase C-Reactive Protein NT-Pro-B Natriuret Pep Total Protein Albumin Triglycerides Arterial Blood Glucose Ur Specific [place] Coronavirus (PCR) 03/22/21 03/22/21 03/23/21 21:13 23:48 07:04 WBC 11.7 H RBC Hgb Hct MCV 95 H MCHC RDW 16.1 H Lymph % (Auto) [place] % (Auto) [place] # (Auto) Seg Neutrophils % Seg Neuts % (Manual) Lymphocytes % (Manual) Monocytes % (Manual) Nucleated RBC % Seg Neutrophils # Seg Neutrophils # Man Lymphocytes # (Manual) Monocytes # (Manual) PT INR D-Dimer ABG pH POC ABG pCO2 POC ABG pO2 ABG pO2 ABG HCO3 ABG O2 Saturation ABG Base Excess ABG Hemoglobin ABG Oxyhemoglobin ABG Sodium ABG Potassium ABG Glucose Oxyhemoglobin Sodium Potassium Chloride Carbon Dioxide BUN Creatinine Glucose POC Glucose 121 H 114 H Lactic Acid Phosphorus Magnesium Ferritin Lactate Dehydrogenase C-Reactive Protein NT-Pro-B Natriuret Pep Total Protein Albumin Triglycerides Arterial Blood Glucose Ur Specific [place] Coronavirus (PCR) 03/23/21 03/23/21 03/23/21 07:04 08:35 11:19 WBC RBC Hgb Hct MCV MCHC RDW Lymph % (Auto) [place] % (Auto) [place] # (Auto) Seg Neutrophils % Seg Neuts % (Manual) Lymphocytes % (Manual) Monocytes % (Manual) Nucleated RBC % Seg Neutrophils # Seg Neutrophils # Man Lymphocytes # (Manual) Monocytes # (Manual) PT INR D-Dimer ABG pH 7.345 L POC ABG pCO2 POC ABG pO2 ABG pO2 167.9 H ABG HCO3 32.2 H ABG O2 Saturation ABG Base Excess 4.8 H ABG Hemoglobin 13.4 L ABG Oxyhemoglobin ABG Sodium ABG Potassium ABG Glucose Oxyhemoglobin Sodium 148 H Potassium Chloride 111.3 H Carbon Dioxide 31 H BUN 31 H Creatinine Glucose 131 H POC Glucose 165 H Lactic Acid Phosphorus Magnesium 2.50 H Ferritin Lactate Dehydrogenase C-Reactive Protein NT-Pro-B Natriuret Pep Total Protein Albumin Triglycerides Arterial Blood Glucose Ur Specific [place] Coronavirus (PCR) 03/23/21 03/23/21 03/24/21 16:48 20:52 00:07 WBC RBC Hgb Hct MCV MCHC RDW Lymph % (Auto) [place] % (Auto) [place] # (Auto) Seg Neutrophils % Seg Neuts % (Manual) Lymphocytes % (Manual) Monocytes % (Manual) Nucleated RBC % Seg Neutrophils # Seg Neutrophils # Man Lymphocytes # (Manual) Monocytes # (Manual) PT INR D-Dimer ABG pH POC ABG pCO2 POC ABG pO2 ABG pO2 ABG HCO3 ABG O2 Saturation ABG Base Excess ABG Hemoglobin ABG Oxyhemoglobin ABG Sodium ABG Potassium ABG Glucose Oxyhemoglobin Sodium Potassium Chloride Carbon Dioxide BUN Creatinine Glucose POC Glucose 160 H 127 H 147 H Lactic Acid Phosphorus Magnesium Ferritin Lactate Dehydrogenase C-Reactive Protein NT-Pro-B Natriuret Pep Total Protein Albumin Triglycerides Arterial Blood Glucose Ur Specific [place] Coronavirus (PCR) 03/24/21 03/24/21 03/24/21 04:34 04:34 05:20 WBC 13.3 H RBC Hgb Hct MCV MCHC 31 L RDW 16.1 H Lymph % (Auto) [place] % (Auto) [place] # (Auto) Seg Neutrophils % Seg Neuts % (Manual) Lymphocytes % (Manual) Monocytes % (Manual) Nucleated RBC % Seg Neutrophils # Seg Neutrophils # Man Lymphocytes # (Manual) Monocytes # (Manual) PT INR D-Dimer ABG pH POC ABG pCO2 POC ABG pO2 ABG pO2 ABG HCO3 ABG O2 Saturation ABG Base Excess ABG Hemoglobin ABG Oxyhemoglobin ABG Sodium ABG Potassium ABG Glucose Oxyhemoglobin Sodium Potassium 5.2 H Chloride Carbon Dioxide BUN 28 H Creatinine 0.7 L Glucose 152 H POC Glucose 141 H Lactic Acid Phosphorus Magnesium Ferritin Lactate Dehydrogenase C-Reactive Protein NT-Pro-B Natriuret Pep Total Protein Albumin Triglycerides Arterial Blood Glucose Ur Specific [place] Coronavirus (PCR) 03/24/21 03/24/21 09:40 11:38 WBC RBC Hgb Hct MCV MCHC RDW Lymph % (Auto) [place] % (Auto) [place] # (Auto) Seg Neutrophils % Seg Neuts % (Manual) Lymphocytes % (Manual) Monocytes % (Manual) Nucleated RBC % Seg Neutrophils # Seg Neutrophils # Man Lymphocytes # (Manual) Monocytes # (Manual) PT INR D-Dimer ABG pH POC ABG pCO2 POC ABG pO2 ABG pO2 ABG HCO3 ABG O2 Saturation ABG Base Excess ABG Hemoglobin ABG Oxyhemoglobin ABG Sodium ABG Potassium ABG Glucose Oxyhemoglobin Sodium Potassium Chloride Carbon Dioxide BUN Creatinine Glucose POC Glucose 126 H 136 H Lactic Acid Phosphorus Magnesium Ferritin Lactate Dehydrogenase C-Reactive Protein NT-Pro-B Natriuret Pep Total Protein Albumin Triglycerides Arterial Blood Glucose Ur Specific [place] Coronavirus (PCR) Prior PFT's, U/S of legs: report reviewed (no DVT) Allied health notes reviewed: nursing
--- NOTE | 2021-03-24 13:59 | Progress Note ---
Assessment and Plan Cultures: SARS CoV2 PCR: positive 03/08/2021 blood culture: no growth 03/10/2021 sputum culture: Usual respiratory marlyn 03/16/2021 blood culture: In process 03/18/2021 sputum culture: Stenotrophomonas A/P: 61-year-old male with diabetes, hypertension admitted to the hospital with complaints of shortness of breath and feeling weak for the last 1 week: #Sepsis secondary to bilateral pneumonia: secondary to COVID-19. Elevated inflammatory markers. WBC 22.6, creatinine 1.3, ferritin 877, CRP 18.0, LDH 624, procalcitonin 0.18. D-dimer >10k. CTA negative for pulmonary embolism, severe patchy groundglass opacities. #New fever: probably COVID related. #Acute hypoxic respiratory failure: initially required BiPAP, now intubated, on the vent. #DM #HTN Recs: -Start Bactrim for stenotrophomonas.. Planned 8 days -Continue steroids per pulm, on solumedrol, would not extend beyond 10 days especially since patient also received Actemra. -completed IV remdesivir -s/p Actemra 03/10/2021 -prophylactic anticoagulation based on d-dimer per hospital protocol Nayan Goins MD [facility] ([facility] O: [phone] F: [phone] Subjective Date of service: 03/24/21 Principal diagnosis: COVID-19 infection; DM II; Bilateral pneumonia; Obesity; HTN Interval history: Afebrile overnight, white count 13.3. Histoplasma and galactomannan test nega tive. Imaging personally reviewed: Dopplers: Superficial thrombus in the left gastroc Objective - Exam Narrative Exam: Physical exam deferred to reduce risk of transmission of COVID-19. Please refer to primary team's note. - Constitutional Vitals: Vital Signs Temp Pulse Resp BP Pulse Ox 98.1 F 99 H 20 144/87 95 03/24/21 12:00 03/24/21 12:30 03/24/21 08:59 03/24/21 12:30 03/24/21 12:30 Temperature -Last 24 Hours Temperature 98.1 F Temperature 99.2 F Temperature 99 F Temperature 99.8 F Temperature 99.7 F Temperature 100.4 F - Labs CBC & Chem 7: 03/24/21 04:34 03/24/21 04:34 Labs: Abnormal lab results 03/23/21 03/23/21 03/24/21 Range/Units 16:48 20:52 00:07 WBC (4.5-11.0) K/mm3 MCHC (32-34) % RDW (13.2-15.2) % Potassium (3.6-5.0) mmol/L BUN (9-20) mg/dL Creatinine (0.8-1.3) mg/dL Glucose (75-100) mg/dL POC Glucose 160 H 127 H 147 H (70-105) mg/dL 03/24/21 03/24/21 03/24/21 Range/Units 04:34 04:34 05:20 WBC 13.3 H (4.5-11.0) K/mm3 MCHC 31 L (32-34) % RDW 16.1 H (13.2-15.2) % Potassium 5.2 H (3.6-5.0) mmol/L BUN 28 H (9-20) mg/dL Creatinine 0.7 L (0.8-1.3) mg/dL Glucose 152 H (75-100) mg/dL POC Glucose 141 H (70-105) mg/dL 03/24/21 03/24/21 Range/Units 09:40 11:38 WBC (4.5-11.0) K/mm3 MCHC (32-34) % RDW (13.2-15.2) % Potassium (3.6-5.0) mmol/L BUN (9-20) mg/dL Creatinine (0.8-1.3) mg/dL Glucose (75-100) mg/dL POC Glucose 126 H 136 H (70-105) mg/dL
--- NOTE | 2021-03-24 17:28 | Progress Note ---
<FLORIANMARISABEL TrishLester - Last Filed: 03/24/21 17:24> Assessment and Plan Assessment and plan: This is a 61-year-old man with HTN and DM admitted with COVID-19 pneumonia, acute hypoxic respiratory failure, sepsis Severe sepsis (POA), COVID 19 PNA, Stenotrophomonas Maltophillia in trachial aspirate -Infectious disease consulted, appreciate recommendation -S/p Actemra 03/10/2021 -IV remdesivir for 5 days -Solumederol 60mg q 8 -weaning started -Prophylactic anticoagulation per hospital protocol -Droplet/isolation precautions -Monitor WBC and temperature curve -03/08 blood culture x2 with no growth to date and tracheal aspirate GNR -Speciated to Stenotrophomonas Maltophillia -Bactrim Acute hypoxic respiratory failure -CCM consulted, appreciate recommendations -CT chest shows severe patchy multifocal ground glass airspace disease -Intubated on 03/10 with a 7.50 ETT at 20 for the lips -A.m. vent settings: Assist control tidal volume 450, rate 12, PEEP 8, FiO2 50% -See RT notes for titration -A.m. ABG and CXR noted -VAP bundle -SPO2 monitoring -Albuterol as needed, Brovana and Pulmicort -Surgery consulted for trach/PEG -[facility] plans to pressure support trial patient for 2 to 3 hours/day Acute Metabolic Encephalopathy -Avoid delirium -Reorientation as needed -Sedated with propofol and fentanyl -Seroquel, Librium -RASS goal -1 to -2 -As needed analgesia -Maintain sleep-wake cycle -Bilateral restraints in place for safety -SAT and SBT when appropriate -EKG for Qtc monitoring Superficial thrombus in left gastrocnemius vein -Bilateral lower extremity ultrasound negative for DVT, superficial thrombus in left gastrocnemius vein -repeat BLE Doppler US no superficial thrombus -CTA chest shows no gross pulm embolism -Trend CBC -SCDs to BLE while in bed -Transfuse hemoglobin less than 7 -Lovenox prophylactic dosing -Monitor for signs of bleeding h/o HTN -Blood pressure monitoring per protocol -Cardiology consulted, appreciate recommendations -Echocardiogram shows a mildly dilated ascending aorta, normal LV systolic function, mild concentric LVH, LVEF 60 to 65% -Hydralazine and metoprolol, titrate as needed Obesity -24 hours - 650 mL -PPI -NTR consulted for tube feedings -BR: Senokot -BMS removed due to external hemorrhoids (as needed Preparation H) Endo: h/o DM -Avoid hypoglycemia -SSI, lantus->increase as needed -Accu-Cheks q. 6 The high probability of a clinically significant, sudden or life threatening deterioration of the [multi] system(s) required my full and direct attention, in tervention and personal management. The aggregate critical care time was [60] minutes. This time is in addition to time spent performing reported procedures but includes the following: [x] Data Review and interpretation [x] Patient assessment and monitoring of vital signs [x] Documentation [x] Medication orders and management Disposition Plan: 60 Total Time Spent with Patient (Minutes): icu History Interval history: This is a 61-year-old male with HTN and DM who presented to the emergency department on 03/09 with shortness of breath and hypoxia via EMS. Patient had apparently been feeling ill for proxy 1 week prior to mentation. Upon EMS arrival patient SPO2 was in the low 70s and improved to upper 80slow 90s on nonrebreather and he was transported to [facility] in the emergency department patient was noted to be hypoxic and placed on a BiPAP with improvement to mentation and hypoxia. CXR showed bilateral patchy infiltrates. Lab work showed leukocytosis, elevated D-dimer, hyponatremia, hypochloremia and elevated COVID-19 markers with elevated BNP. CTA chest showed no pulmonary embolism. Patient was admitted to the hospitalist service as a COVID-19 PUI and started on antibiotics and Decadron with consult to infectious disease. 03/09: The patient was seen and evaluated today, and he was found to be hemodynamically stable. The patient is currently on BiPAP for possible COVID-19 pneumonia. He was started on Lovenox 1mg/kg for DVT ppx in the setting of d- dimer > 10,000. Infectious Disease was consulted. The patient is pending a TTE. 03/10: No acute events overnight, patient was intubated in the afternoon transferred to ICU 03/11: Patient started on Lantus, free water flushes increased, propofol drip resumed and oral antihypertensive added. 03/12: lantus increased, k at 5, will monitor. I updated his family and his stated that he is not vaccinated. He does have HTN and she will call the RN to update home medications. She did say he takes bystolic and amlopine. She inquired about ventilator and lab work. She had no further questions. 03/13: KVNG overnight. Patient remains hyperglycemic, basal insulin adjusted and increased to Q12hrs. Patient is overall net positive since admit X1 dose of IV lasix, repeat BMP this afternoon. 03/14: Failed SAT this am due to increase agitation, tachycardia and hypertension. Remains on propofol and fentanyl gtt. Hyperkalemia treated with PO kayaxalate. Patient responded to IV lasix yesterday additional dose again today for a net negative balance. Repeat BMP this afternoon. Insulin adjusted for hype rglycemia. 03/15: Remains encephalopathic, not following commansd. Orders placed for CT head/Brain and Neuro consulted. Rectal bleeding subsided, most likely due to hemorrhoids. H&H is stable will continue to monitor. Kayaxexalate for high K, repeat labs 4 to 6hrs post treatment. 03/16: Still agiated this am, CT head with no acute Abn. CXR and ABG noted- evolving pna and worsening hypoxia, now with low grade fevers. Sputum culture ordered, IV Abx added, ID on cosult. 03/17: This am ABG noted, hypoxia improved. Continue to wean FiO2 as tolerated. Still with low grade fevers, on IV Abx per ID. Still with periods of confusion despite sedation, seroquel increased. F/u CXR in the am 03/18: still very agitated especially when off sedation, with hypertension and tachycardia. Continue sedation for RASS -2, PRN antihypertensive for SPB greater than 160. This febrile this am, continue current IV abx per ID 03/19: Patient afebrile overnight, continue IV Abx per ID. ABG also improved this am, continue to wean FIO2 as tolerated. PRN antihypertensive for hypertension. 03/20: Hyperkalemia treated with Kayexalate, Good discontinued, vancomycin and cefepime stopped started Bactrim by ID. Steroid taper started. 03/21: BB started for hypertension, Seroquel increased for agitation and Librium started no acute events reported overnight. [facility] made vent changes 03/22: Adjustment to anxiolytics, respiratory rate on ventilator per [facility]. Patient noted to have bleeding hemorrhoids with clot, requested RN to remove bowel management system and will order Preparation H. 03/23: Given no confirmed DVT or PE (only superficial thrombus noted on Dopplers) therapeutic Lovenox changed to prophylactic Lovenox. Started on doxazosin to help with retention. Consulted surgery for tracheostomy and propofol discontinued. 03/24: Surgery consult completed, patient changed to prophylaxis anticoagulation, started on doxazosin yesterday with plans to remove Good catheter in 48 hours. Patient with slight hypokalemia today and given Kayexalate. No acute events reported overnight. Hospitalist Physical - Constitutional Vitals: Temp Pulse Resp BP Pulse Ox 98.1 F 95 H 14 125/71 95 03/24/21 12:00 03/24/21 16:25 03/24/21 14:15 03/24/21 16:25 03/24/21 16:25 General appearance: Present: no acute distress, well-nourished, obese, other (Intubated and sedated) - EENT Eyes: Present: PERRL, EOM intact ENT: hearing intact, dentition normal - Neck Neck: Present: normal ROM - Respiratory Respiratory effort: normal Respiratory: bilateral: diminished - Cardiovascular Rhythm: regular Heart Sounds: Present: S1 & S2. Absent: systolic murmur, diastolic murmur - Extremities Extremities: no ischemia, pulses intact, pulses symmetrical, No edema, normal temperature, normal color Peripheral Pulses: within normal limits - Abdominal General gastrointestinal: soft, non-tender, non-distended, normal bowel sounds - Integumentary Integumentary: Present: warm, dry - Psychiatric Psychiatric: cooperative - Neurologic Neurologic: CNII-XII intact - Allied Health Allied health notes reviewed: nursing, RT, social work Results - Labs CBC & Chem 7: 03/24/21 04:34 03/24/21 04:34 Labs: Laboratory Last Values WBC 13.3 K/mm3 (4.5-11.0) H 03/24/21 04:34 RBC 4.35 M/mm3 (3.65-5.03) 03/24/21 04:34 Hgb 12.8 gm/dl (11.8-15.2) 03/24/21 04:34 Hct 40.8 % (35.5-45.6) 03/24/21 04:34 MCV 94 fl (84-94) 03/24/21 04:34 MCH 30 pg (28-32) 03/24/21 04:34 MCHC 31 % (32-34) L 03/24/21 04:34 RDW 16.1 % (13.2-15.2) H 03/24/21 04:34 Plt Count 171 K/mm3 (140-440) 03/24/21 04:34 Lymph % (Auto) 12.6 % (13.4-35.0) L 03/17/21 04:40 [place] % (Auto) 11.3 % (0.0-7.3) H 03/17/21 04:40 Eos % (Auto) 0.4 % (0.0-4.3) 03/17/21 04:40 Baso % (Auto) 0.8 % (0.0-1.8) 03/17/21 04:40 Lymph # (Auto) 1.8 K/mm3 (1.2-5.4) 03/17/21 04:40 Morton # (Auto) 1.6 K/mm3 (0.0-0.8) H 03/17/21 04:40 Eos # (Auto) 0.1 K/mm3 (0.0-0.4) 03/17/21 04:40 Baso # (Auto) 0.1 K/mm3 (0.0-0.1) 03/17/21 04:40 Add Manual Diff Complete 03/10/21 04:29 Total Counted 100 03/10/21 04:29 Seg Neutrophils % 74.9 % (40.0-70.0) H 03/17/21 04:40 Seg Neuts % (Manual) 94.0 % (40.0-70.0) H 03/10/21 04:29 Band Neutrophils % 0 % 03/10/21 04:29 Lymphocytes % (Manual) 1.0 % (13.4-35.0) L 03/10/21 04:29 Reactive Lymphs % (Man) 0 % 03/10/21 04:29 Monocytes % (Manual) 5.0 % (0.0-7.3) 03/10/21 04:29 Eosinophils % (Manual) 0 % (0.0-4.3) 03/10/21 04:29 Basophils % (Manual) 0 % (0.0-1.8) 03/10/21 04:29 Metamyelocytes % 0 % 03/10/21 04:29 Myelocytes % 0 % 03/10/21 04:29 Promyelocytes % 0 % 03/10/21 04:29 Blast Cells % 0 % 03/10/21 04:29 Nucleated RBC % 3.0 % (0.0-0.9) H 03/10/21 04:29 Seg Neutrophils # 10.5 K/mm3 (1.8-7.7) H 03/17/21 04:40 Seg Neutrophils # Man 19.4 K/mm3 (1.8-7.7) H 03/10/21 04:29 Band Neutrophils # 0.0 K/mm3 03/10/21 04:29 Lymphocytes # (Manual) 0.2 K/mm3 (1.2-5.4) L 03/10/21 04:29 Abs React Lymphs (Man) 0.0 K/mm3 03/10/21 04:29 Monocytes # (Manual) 1.0 K/mm3 (0.0-0.8) H 03/10/21 04:29 Eosinophils # (Manual) 0.0 K/mm3 (0.0-0.4) 03/10/21 04:29 Basophils # (Manual) 0.0 K/mm3 (0.0-0.1) 03/10/21 04:29 Metamyelocytes # 0.0 K/mm3 03/10/21 04:29 Myelocytes # 0.0 K/mm3 03/10/21 04:29 Promyelocytes # 0.0 K/mm3 03/10/21 04:29 Blast Cells # 0.0 K/mm3 03/10/21 04:29 WBC Morphology Not Reportable 03/10/21 04:29 Hypersegmented Neuts Not Reportable 03/10/21 04:29 Hyposegmented Neuts Not Reportable 03/10/21 04:29 Hypogranular Neuts Not Reportable 03/10/21 04:29 Smudge Cells Not Reportable 03/10/21 04:29 Toxic Granulation Not Reportable 03/10/21 04:29 Toxic Vacuolation Not Reportable 03/10/21 04:29 Dohle Bodies Not Reportable 03/10/21 04:29 Pelger-Huet Anomaly Not Reportable 03/10/21 04:29 Mely Rods Not Reportable 03/10/21 04:29 Platelet Estimate Consistent w auto 03/10/21 04:29 Clumped Platelets Not Reportable 03/10/21 04:29 Plt Clumps, EDTA Not Reportable 03/10/21 04:29 Large Platelets Not Reportable 03/10/21 04:29 Giant Platelets Not Reportable 03/10/21 04:29 Platelet Satelliting Not Reportable 03/10/21 04:29 Plt Morphology Comment Not Reportable 03/10/21 04:29 RBC Morphology Normal 03/10/21 04:29 Dimorphic RBCs Not Reportable 03/10/21 04:29 Polychromasia Not Reportable 03/10/21 04:29 Hypochromasia Not Reportable 03/10/21 04:29 Poikilocytosis Not Reportable 03/10/21 04:29 Anisocytosis Not Reportable 03/10/21 04:29 Microcytosis Not Reportable 03/10/21 04:29 Macrocytosis Not Reportable 03/10/21 04:29 Spherocytes Not Reportable 03/10/21 04:29 Pappenheimer Bodies Not Reportable 03/10/21 04:29 Sickle Cells Not Reportable 03/10/21 04:29 Target Cells Not Reportable 03/10/21 04:29 Tear Drop Cells Not Reportable 03/10/21 04:29 Ovalocytes Not Reportable 03/10/21 04:29 Helmet Cells Not Reportable 03/10/21 04:29 [place] Bodies Not Reportable 03/10/21 04:29 [place] Rings Not Reportable 03/10/21 04:29 [place] Cells Not Reportable 03/10/21 04:29 Bite Cells Not Reportable 03/10/21 04:29 Crenated Cell Not Reportable 03/10/21 04:29 Elliptocytes Not Reportable 03/10/21 04:29 Acanthocytes (Spur) Not Reportable 03/10/21 04:29 Rouleaux Not Reportable 03/10/21 04:29 Hemoglobin C Crystals Not Reportable 03/10/21 04:29 Schistocytes Not Reportable 03/10/21 04:29 Malaria parasites Not Reportable 03/10/21 04:29 Shaheen Bodies Not Reportable 03/10/21 04:29 Hem Pathologist Commnt No 03/10/21 04:29 PT 16.1 Sec. (12.2-14.9) H 03/08/21 20:24 INR 1.17 (0.87-1.13) H 03/08/21 20:24 APTT 28.0 Sec. (24.2-36.6) 03/08/21 20:24 D-Dimer 1359.12 ng/mlDDU (0-234) H 03/17/21 04:40 ABG pH 7.345 pH Units (7.350-7.450) L 03/23/21 08:35 POC ABG pCO2 71.9 mmHg (32.0-48.0) H 03/12/21 21:54 ABG pCO2 60.4 mm Hg 03/23/21 08:35 POC ABG pO2 53.6 mmHg (83-108) L 03/12/21 21:54 ABG pO2 167.9 mm Hg (80.0-90.0) H 03/23/21 08:35 POC ABG HCO3 30.0 03/12/21 21:54 ABG HCO3 32.2 mmol/L (20.0-26.0) H 03/23/21 08:35 ABG O2 Saturation 98.9 % (95.0-99.0) 03/23/21 08:35 ABG O2 Content 18.6 (0.0-44) 03/23/21 08:35 POC ABG Base Excess 0.5 03/12/21 21:54 ABG Base Excess 4.8 mmol/L (-2.0-3.0) H 03/23/21 08:35 ABG Hemoglobin 13.4 gm/dl (14.0-18.0) L 03/23/21 08:35 ABG Oxyhemoglobin 84.8 (94-98) L 03/12/21 21:54 ABG Carboxyhemoglobin 1.5 % (0.0-5.0) 03/23/21 08:35 ABG Methemoglobin 0.8 % (0.0-1.5) 03/23/21 08:35 ABG Sodium 134.2 mmol/L (136.0-145.0) L 03/12/21 21:54 ABG Potassium 4.9 mmol/L (3.40-4.50) H 03/12/21 21:54 ABG Chloride 99.0 mmol/L (98-107) 03/12/21 21:54 ABG Glucose 306 mg/dL (65-95) H 03/12/21 21:54 Oxyhemoglobin 96.6 % (95.0-99.0) 03/23/21 08:35 Carboxyhemoglobin 0.6 (0.5-1.5) 03/12/21 21:54 FiO2 100 % 03/23/21 08:35 FiO2 % 50.0 03/12/21 21:54 Sodium 143 mmol/L (137-145) 03/24/21 04:34 Potassium 5.2 mmol/L (3.6-5.0) H 03/24/21 04:34 Chloride 106.9 mmol/L (98-107) 03/24/21 04:34 Carbon Dioxide 29 mmol/L (22-30) 03/24/21 04:34 Anion Gap 12 mmol/L 03/24/21 04:34 BUN 28 mg/dL (9-20) H 03/24/21 04:34 Creatinine 0.7 mg/dL (0.8-1.3) L 03/24/21 04:34 Estimated GFR > 60 ml/min 03/24/21 04:34 BUN/Creatinine Ratio 40 % 03/24/21 04:34 Glucose 152 mg/dL (75-100) H 03/24/21 04:34 POC Glucose 118 mg/dL (70-105) H 03/24/21 16:45 Lactic Acid 1.90 mmol/L (0.7-2.0) 03/08/21 23:51 Calcium 9.0 mg/dL (8.4-10.2) 03/24/21 04:34 Phosphorus 3.20 mg/dL (2.5-4.5) D 03/23/21 07:04 Magnesium 2.50 mg/dL (1.7-2.3) H 03/23/21 07:04 Ferritin 976.4 ng/mL (30.0-300.0) H 03/15/21 04:00 Total Bilirubin 0.20 mg/dL (0.1-1.2) 03/12/21 08:03 AST 10 units/L (5-40) 03/12/21 08:03 ALT 16 units/L (7-56) 03/12/21 08:03 Alkaline Phosphatase 77 units/L (35-129) 03/12/21 08:03 Lactate Dehydrogenase 630 units/L (91-180) H 03/15/21 06:06 C-Reactive Protein 0.40 mg/dL (0.00-1.30) 03/17/21 04:40 NT-Pro-B Natriuret Pep 1053 pg/mL (0-900) H 03/08/21 20:24 Total Protein 6.0 g/dL (6.3-8.2) L 03/12/21 08:03 Albumin 2.9 g/dL (3.9-5) L 03/12/21 08:03 Albumin/Globulin Ratio 0.9 % 03/12/21 08:03 Triglycerides 305 mg/dL (2-149) H 03/22/21 07:26 Procalcitonin 0.05 ng/mL (<0.15) 03/17/21 04:40 Arterial Blood Glucose 306 mg/dL (65-95) H 03/12/21 21:54 Arterial Blood Ionized Calcium 5.0 mg/dL (4.6-5.3) 03/12/21 21:54 Urine Color Yellow (Yellow) 03/09/21 04:10 Urine Turbidity Slightly-cloudy (Clear) 03/09/21 04:10 Urine pH 5.0 (5.0-7.0) 03/09/21 04:10 Ur Specific [place] 1.041 (1.003-1.030) H 03/09/21 04:10 Urine Protein 100 mg/dl mg/dL (Negative) 03/09/21 04:10 Urine Glucose (UA) Neg mg/dL (Negative) 03/09/21 04:10 Urine Ketones Neg mg/dL (Negative) 03/09/21 04:10 Urine Blood Mod (Negative) 03/09/21 04:10 Urine Nitrite Neg (Negative) 03/09/21 04:10 Urine Bilirubin Neg (Negative) 03/09/21 04:10 Urine Urobilinogen 2.0 mg/dL (<2.0) 03/09/21 04:10 Ur Leukocyte Esterase Neg (Negative) 03/09/21 04:10 Urine WBC (Auto) 4.0 /HPF (0.0-6.0) 03/09/21 04:10 Urine RBC (Auto) 1.0 /HPF (0.0-6.0) 03/09/21 04:10 Urine Bacteria (Auto) 1+ /HPF (Negative) 03/09/21 04:10 Urine Mucus Few /HPF 03/09/21 04:10 Coronavirus (PCR) Positive (Negative) A 03/09/21 08:00 Miscellaneous Test Flexitest 1 03/16/21 13:14 Good/IV: Voiding Method Indwelling Catheter Active Medications - Current Medications Current Medications: Generic Name Dose Route Start Last Admin Trade Name Freq PRN Reason Stop Dose Admin Acetaminophen 650 mg 03/09/21 01:26 03/23/21 10:03 Acetaminophen 325 Mg Tab PO 650 mg Q4H PRN Administration Pain MILD(1-3)/Fever >100.5/RAYO Albuterol 2.5 mg 03/09/21 01:26 03/18/21 21:06 Albuterol 2.5 Mg/3 Ml Nebu IH 2.5 mg Q4HRT PRN Administration Shortness Of Breath Arformoterol Tartrate 15 mcg 03/11/21 20:00 03/24/21 08:59 Arformoterol 15 Mcg/2 Ml Nebu IH 15 mcg Q12HRT BLANCA Administration Ascorbic Acid 500 mg 03/10/21 14:00 03/24/21 09:42 Ascorbic Acid 500 Mg Tab PO 500 mg BID BLANCA Administration Budesonide 0.25 mg 03/11/21 20:00 03/24/21 08:59 Budesonide 0.25 Mg/2 Ml Nebu IH 0.25 mg Q12HRT BLANCA Administration Chlordiazepoxide HCl 75 mg 03/22/21 18:00 03/24/21 12:48 Chlordiazepoxide 25 Mg Cap PO Not Given Q6HR BLACNA Dextrose 0 ml 03/20/21 10:52 Dextrose 10% *Hypoglycemia IV PRN PRN Hypoglycemia Doxazosin Mesylate 1 mg 03/23/21 14:00 03/24/21 09:43 Doxazosin 1 Mg Tab PO 1 mg QDAY BLANCA Administration Enoxaparin Sodium 60 mg 03/24/21 10:00 03/24/21 09:42 Enoxaparin 60 Mg/0.6 Ml Inj SUB-Q 60 mg QDAY BLANCA Administration Protocol Famotidine 20 mg 03/12/21 22:00 03/24/21 09:42 Famotidine 20 Mg Tab FEEDTUBE 20 mg BID BLANCA Administration Hydralazine HCl 50 mg 03/23/21 14:26 03/24/21 14:46 Hydralazine 25 Mg Tab PO 50 mg Q8HR BLANCA Administration Hydrophilic Ointment 1 applic 03/10/21 15:39 Lip Therapy Vaseline TP Q2HR PRN Dry Lips Fentanyl Citrate 2,000 mcg in 100 mls @ 5.897 mls/hr 03/10/21 17:00 03/24/21 14:48 Fentanyl Drip Premix IV 2 mcg/kg/hr TITR BLANCA 11.793 mls/hr Administration Protocol 1 MCG/KG/HR Propofol 1,000 mg in 100 mls @ 3.507 mls/hr 03/11/21 17:00 03/22/21 18:02 Diprivan 10 Mg/Ml IV 0 mcg/kg/min TITR BLANCA 0 mls/hr Titration Protocol 5 MCG/KG/MIN Insulin Glargine 25 units 03/14/21 10:00 03/24/21 09:44 Insulin Glargine 100 Units/Ml SUB-Q 25 units BID [facility] Administration Insulin Human Lispro 0 unit 03/11/21 18:00 03/24/21 12:15 Insulin Lispro 100 Unit/Ml SUB-Q Not Given Q6HR [facility] Protocol Labetalol HCl 10 mg 03/12/21 21:13 03/21/21 16:54 Labetalol 20 Mg/4 Ml Inj IV 10 mg Q6H PRN Administration Blood Pressure Methylprednisolone Sodium Succinate 40 mg 03/27/21 10:00 Methylprednisolone Sod Succinate 40 Mg/1 Ml Inj IV 03/28/21 10:01 Q24HR [facility] Methylprednisolone Sodium Succinate 40 mg 03/24/21 22:00 Methylprednisolone Sod Succinate 40 Mg/1 Ml Inj IV 03/26/21 10:01 1000,2200 [facility] Metoprolol Tartrate 12.5 mg 03/21/21 22:00 03/24/21 09:42 Metoprolol Tartrate 25 Mg Tab PO 12.5 mg BID BLANCA Administration Midazolam HCl 2 mg 03/15/21 08:49 03/23/21 07:58 Midazolam 2 Mg/2 Ml Inj IV 2 mg Q2H PRN Administration VENT SYNCHRONY Multi-Ingred Cream/Lotion/Oil/Oint 1 applic 03/10/21 15:39 Mineral Oil/Petrolatum, White Ophth Oint 3.5 Gm OU Q4HR PRN Dry Eye(s) Ondansetron HCl 4 mg 03/09/21 01:26 Ondansetron 4 Mg/2 Ml Inj IV Q8H PRN Nausea And Vomiting Phenyleph/Shark Oil/Min Oil/Petrol 1 applic 03/22/21 17:35 Pe/Mo/Pet,Wh 10 Applic/28 Gm Tube NH Q6HR PRN Hemorrhoids Prednisone 10 mg 03/29/21 10:00 Prednisone 10 Mg Tab PO DAILY BLANCA Quetiapine Fumarate 300 mg 03/21/21 22:00 03/24/21 09:43 Quetiapine 100 Mg Tab PO 300 mg BID BLANCA Administration Senna/Docusate Sodium 1 tab 03/10/21 22:00 03/24/21 09:42 Sennosides/Docusate Sodium 8.6/50 Mg Tab FEEDTUBE 1 tab BID BLANCA Administration Sodium Chloride 10 ml 03/09/21 10:00 03/24/21 10:20 Sodium Chloride 0.9% 10 Ml Flush Syringe IV 10 ml BID BLANCA Administration Sodium Chloride 10 ml 03/09/21 01:26 Sodium Chloride 0.9% 10 Ml Flush Syringe IV PRN PRN LINE FLUSH Sodium Chloride 10 ml 03/20/21 09:48 Sodium Chloride 0.9% 50 Ml Ivpb IV PRN PRN FLUSH Trimethoprim/Sulfamethoxazole 1 each 03/20/21 16:00 03/24/21 09:42 Sulfamethoxazole/Trimethoprim 800/160mg Ds Tab PO 03/27/21 22:01 1 each Q12HR BLANCA Administration Protocol Zinc Sulfate 220 mg 03/10/21 14:00 03/24/21 09:43 Zinc Sulfate 220 Mg Cap PO 220 mg BID BLANCA Administration Nutrition/Malnutrition Assess - Dietary Evaluation Nutrition/Malnutrition Findings: Nutrition Notes Start: 03/09/21 08:49 Freq: Status: Active Protocol: Document 03/20/21 16:21 BRYANNA (Rec: 03/20/21 16:53 BRYANNA [id number]) Nutrition Notes Current Diagnosis Diabetes,Sepsis,Hypertension, Respiratory Failure Other Pertinent Diagnosis COVID-19, Bilateral Pneumonia. Current Diet TF-Glucerna 1.2 Tyson at 40 ml/ hr (since D 03/17). Labs/Tests 03/20: Na 146, K 5.5, Cl 111.1 , BUN 34, Crea 0.7, Glu 145, Mg 2.5. Pertinent Medications 03/20: Vit C, Insulin, ZnSO4, Propofol @ 35.07 ml/hr ( 926Kcal), others nutritionally unremarkable. Height 5 ft 11 in Weight 120 kg [place] Body Weight (kg) 78.18 BMI 36.8 Weight change and time frame 3.0 Kg body weight gain in 3 days reported. Weight Status Obese Subjective/Other Information RD consult for routine F/U on TF tolerance. Pt remains on mechanical ventilation, according to [facility] notes. TF continues as prescribed. Pt continues with low-grade fever. Percent of energy/protein needs met: Prescribed Glucerna 1.2 Tyson @ 40 ml/hr provides for energy/ protein needs (1,152 Kcal/58 g ) during LOS, additionally, Propofol contributes with 926 Kcal, 87% Kcal; 46% AA. #1 Nutrition Diagnosis Inadequate oral intake Diagnosis Progress(for reassessment Continues documentation) Nutrition Intervention Nutrition Support: Continue Glucerna 1.2 @ 40 ml/ hr. Flush: 200ml water Q 4 hr ( until hypernatremia resolved). Kcal 1,152 Protein (gm) 58 Carbohydrates (gm) 110 Fat (gm) 58 Fluid (mL) 773 Fiber (gm) 15 % RDI: 48% Kcal; 46% AA. Goal #1 Provide at least 75% of energy /protein needs through Enteral Feeding during LOS. Follow-Up By: 03/27/21 Additional Comments Continue monitoring TF tolerance and BM. <RAFAEL DOMINGUEZ - Last Filed: 03/30/21 13:20> Assessment and Plan Assessment and plan: I saw and evaluated the patient. Discussed with the nurse practitioner and agree with their findings and plan as documented in this note. Hospitalist Physical - Constitutional Vitals: Temp Pulse Resp BP Pulse Ox 99.5 F 108 H 24 115/66 97 03/30/21 11:51 03/30/21 11:36 03/30/21 11:00 03/30/21 11:36 03/30/21 11:36 Results - Labs CBC & Chem 7: 03/30/21 05:36 03/30/21 05:36 Labs: Laboratory Last Values WBC 9.6 K/mm3 (4.5-11.0) 03/30/21 05:36 RBC 4.11 M/mm3 (3.65-5.03) 03/30/21 05:36 Hgb 12.2 gm/dl (11.8-15.2) 03/30/21 05:36 Hct 38.6 % (35.5-45.6) 03/30/21 05:36 MCV 94 fl (84-94) 03/30/21 05:36 MCH 30 pg (28-32) 03/30/21 05:36 MCHC 32 % (32-34) 03/30/21 05:36 RDW 16.7 % (13.2-15.2) H 03/30/21 05:36 Plt Count 183 K/mm3 (140-440) 03/30/21 05:36 Lymph % (Auto) 12.6 % (13.4-35.0) L 03/17/21 04:40 [place] % (Auto) 11.3 % (0.0-7.3) H 03/17/21 04:40 Eos % (Auto) 0.4 % (0.0-4.3) 03/17/21 04:40 Baso % (Auto) 0.8 % (0.0-1.8) 03/17/21 04:40 Lymph # (Auto) 1.8 K/mm3 (1.2-5.4) 03/17/21 04:40 Morton # (Auto) 1.6 K/mm3 (0.0-0.8) H 03/17/21 04:40 Eos # (Auto) 0.1 K/mm3 (0.0-0.4) 03/17/21 04:40 Baso # (Auto) 0.1 K/mm3 (0.0-0.1) 03/17/21 04:40 Add Manual Diff Complete 03/10/21 04:29 Total Counted 100 03/10/21 04:29 Seg Neutrophils % 74.9 % (40.0-70.0) H 03/17/21 04:40 Seg Neuts % (Manual) 94.0 % (40.0-70.0) H 03/10/21 04:29 Band Neutrophils % 0 % 03/10/21 04:29 Lymphocytes % (Manual) 1.0 % (13.4-35.0) L 03/10/21 04:29 Reactive Lymphs % (Man) 0 % 03/10/21 04:29 Monocytes % (Manual) 5.0 % (0.0-7.3) 03/10/21 04:29 Eosinophils % (Manual) 0 % (0.0-4.3) 03/10/21 04:29 Basophils % (Manual) 0 % (0.0-1.8) 03/10/21 04:29 Metamyelocytes % 0 % 03/10/21 04:29 Myelocytes % 0 % 03/10/21 04:29 Promyelocytes % 0 % 03/10/21 04:29 Blast Cells % 0 % 03/10/21 04:29 Nucleated RBC % 3.0 % (0.0-0.9) H 03/10/21 04:29 Seg Neutrophils # 10.5 K/mm3 (1.8-7.7) H 03/17/21 04:40 Seg Neutrophils # Man 19.4 K/mm3 (1.8-7.7) H 03/10/21 04:29 Band Neutrophils # 0.0 K/mm3 03/10/21 04:29 Lymphocytes # (Manual) 0.2 K/mm3 (1.2-5.4) L 03/10/21 04:29 Abs React Lymphs (Man) 0.0 K/mm3 03/10/21 04:29 Monocytes # (Manual) 1.0 K/mm3 (0.0-0.8) H 03/10/21 04:29 Eosinophils # (Manual) 0.0 K/mm3 (0.0-0.4) 03/10/21 04:29 Basophils # (Manual) 0.0 K/mm3 (0.0-0.1) 03/10/21 04:29 Metamyelocytes # 0.0 K/mm3 03/10/21 04:29 Myelocytes # 0.0 K/mm3 03/10/21 04:29 Promyelocytes # 0.0 K/mm3 03/10/21 04:29 Blast Cells # 0.0 K/mm3 03/10/21 04:29 WBC Morphology Not Reportable 03/10/21 04:29 Hypersegmented Neuts Not Reportable 03/10/21 04:29 Hyposegmented Neuts Not Reportable 03/10/21 04:29 Hypogranular Neuts Not Reportable 03/10/21 04:29 Smudge Cells Not Reportable 03/10/21 04:29 Toxic Granulation Not Reportable 03/10/21 04:29 Toxic Vacuolation Not Reportable 03/10/21 04:29 Dohle Bodies Not Reportable 03/10/21 04:29 Pelger-Huet Anomaly Not Reportable 03/10/21 04:29 Mely Rods Not Reportable 03/10/21 04:29 Platelet Estimate Consistent w auto 03/10/21 04:29 Clumped Platelets Not Reportable 03/10/21 04:29 Plt Clumps, EDTA Not Reportable 03/10/21 04:29 Large Platelets Not Reportable 03/10/21 04:29 Giant Platelets Not Reportable 03/10/21 04:29 Platelet Satelliting Not Reportable 03/10/21 04:29 Plt Morphology Comment Not Reportable 03/10/21 04:29 RBC Morphology Normal 03/10/21 04:29 Dimorphic RBCs Not Reportable 03/10/21 04:29 Polychromasia Not Reportable 03/10/21 04:29 Hypochromasia Not Reportable 03/10/21 04:29 Poikilocytosis Not Reportable 03/10/21 04:29 Anisocytosis Not Reportable 03/10/21 04:29 Microcytosis Not Reportable 03/10/21 04:29 Macrocytosis Not Reportable 03/10/21 04:29 Spherocytes Not Reportable 03/10/21 04:29 Pappenheimer Bodies Not Reportable 03/10/21 04:29 Sickle Cells Not Reportable 03/10/21 04:29 Target Cells Not Reportable 03/10/21 04:29 Tear Drop Cells Not Reportable 03/10/21 04:29 Ovalocytes Not Reportable 03/10/21 04:29 Helmet Cells Not Reportable 03/10/21 04:29 [place] Bodies Not Reportable 03/10/21 04:29 [place] Rings Not Reportable 03/10/21 04:29 [place] Cells Not Reportable 03/10/21 04:29 Bite Cells Not Reportable 03/10/21 04:29 Crenated Cell Not Reportable 03/10/21 04:29 Elliptocytes Not Reportable 03/10/21 04:29 Acanthocytes (Spur) Not Reportable 03/10/21 04:29 Rouleaux Not Reportable 03/10/21 04:29 Hemoglobin C Crystals Not Reportable 03/10/21 04:29 Schistocytes Not Reportable 03/10/21 04:29 Malaria parasites Not Reportable 03/10/21 04:29 Shaheen Bodies Not Reportable 03/10/21 04:29 Hem Pathologist Commnt No 03/10/21 04:29 PT 13.0 Sec. (12.2-14.9) 03/29/21 04:50 INR 0.88 (0.87-1.13) 03/29/21 04:50 APTT 28.0 Sec. (24.2-36.6) 03/08/21 20:24 D-Dimer 1359.12 ng/mlDDU (0-234) H 03/17/21 04:40 ABG pH 7.353 pH Units (7.350-7.450) 03/25/21 12:35 POC ABG pCO2 71.9 mmHg (32.0-48.0) H 03/12/21 21:54 ABG pCO2 61.9 mm Hg 03/25/21 12:35 POC ABG pO2 53.6 mmHg (83-108) L 03/12/21 21:54 ABG pO2 100.5 mm Hg (80.0-90.0) H 03/25/21 12:35 POC ABG HCO3 30.0 03/12/21 21:54 ABG HCO3 33.6 mmol/L (20.0-26.0) H 03/25/21 12:35 ABG O2 Saturation 97.3 % (95.0-99.0) 03/25/21 12:35 ABG O2 Content 16.2 (0.0-44) 03/25/21 12:35 POC ABG Base Excess 0.5 03/12/21 21:54 ABG Base Excess 6.4 mmol/L (-2.0-3.0) H 03/25/21 12:35 ABG Hemoglobin 12.0 gm/dl (14.0-18.0) L 03/25/21 12:35 ABG Oxyhemoglobin 84.8 (94-98) L 03/12/21 21:54 ABG Carboxyhemoglobin 1.5 % (0.0-5.0) 03/25/21 12:35 ABG Methemoglobin 0.7 % (0.0-1.5) 03/25/21 12:35 ABG Sodium 134.2 mmol/L (136.0-145.0) L 03/12/21 21:54 ABG Potassium 4.9 mmol/L (3.40-4.50) H 03/12/21 21:54 ABG Chloride 99.0 mmol/L (98-107) 03/12/21 21:54 ABG Glucose 306 mg/dL (65-95) H 03/12/21 21:54 Oxyhemoglobin 95.2 % (95.0-99.0) 03/25/21 12:35 Carboxyhemoglobin 0.6 (0.5-1.5) 03/12/21 21:54 FiO2 50 % 03/25/21 12:35 FiO2 % 50.0 03/12/21 21:54 Sodium 140 mmol/L (137-145) 03/30/21 05:36 Potassium 4.5 mmol/L (3.6-5.0) 03/30/21 05:36 Chloride 101.3 mmol/L (98-107) 03/30/21 05:36 Carbon Dioxide 29 mmol/L (22-30) 03/30/21 05:36 Anion Gap 14 mmol/L 03/30/21 05:36 BUN 11 mg/dL (9-20) 03/30/21 05:36 Creatinine 0.5 mg/dL (0.8-1.3) L 03/30/21 05:36 Estimated GFR > 60 ml/min 03/30/21 05:36 BUN/Creatinine Ratio 22 % 03/30/21 05:36 Glucose 127 mg/dL (75-100) H 03/30/21 05:36 POC Glucose 183 mg/dL (70-105) H 03/30/21 11:32 Lactic Acid 1.90 mmol/L (0.7-2.0) 03/08/21 23:51 Calcium 9.0 mg/dL (8.4-10.2) 03/30/21 05:36 Phosphorus TNR 03/28/21 07:14 Magnesium TNR 03/28/21 07:14 Ferritin 976.4 ng/mL (30.0-300.0) H 03/15/21 04:00 Total Bilirubin 0.20 mg/dL (0.1-1.2) 03/12/21 08:03 AST 10 units/L (5-40) 03/12/21 08:03 ALT 16 units/L (7-56) 03/12/21 08:03 Alkaline Phosphatase 77 units/L (35-129) 03/12/21 08:03 Lactate Dehydrogenase 630 units/L (91-180) H 03/15/21 06:06 C-Reactive Protein 0.40 mg/dL (0.00-1.30) 03/17/21 04:40 NT-Pro-B Natriuret Pep 1053 pg/mL (0-900) H 03/08/21 20:24 Total Protein 6.0 g/dL (6.3-8.2) L 03/12/21 08:03 Albumin 2.9 g/dL (3.9-5) L 03/12/21 08:03 Albumin/Globulin Ratio 0.9 % 03/12/21 08:03 Triglycerides 305 mg/dL (2-149) H 03/22/21 07:26 Procalcitonin 0.05 ng/mL (<0.15) 03/17/21 04:40 Arterial Blood Glucose 306 mg/dL (65-95) H 03/12/21 21:54 Arterial Blood Ionized Calcium 5.0 mg/dL (4.6-5.3) 03/12/21 21:54 Urine Color Yellow (Yellow) 03/09/21 04:10 Urine Turbidity Slightly-cloudy (Clear) 03/09/21 04:10 Urine pH 5.0 (5.0-7.0) 03/09/21 04:10 Ur Specific [place] 1.041 (1.003-1.030) H 03/09/21 04:10 Urine Protein 100 mg/dl mg/dL (Negative) 03/09/21 04:10 Urine Glucose (UA) Neg mg/dL (Negative) 03/09/21 04:10 Urine Ketones Neg mg/dL (Negative) 03/09/21 04:10 Urine Blood Mod (Negative) 03/09/21 04:10 Urine Nitrite Neg (Negative) 03/09/21 04:10 Urine Bilirubin Neg (Negative) 03/09/21 04:10 Urine Urobilinogen 2.0 mg/dL (<2.0) 03/09/21 04:10 Ur Leukocyte Esterase Neg (Negative) 03/09/21 04:10 Urine WBC (Auto) 4.0 /HPF (0.0-6.0) 03/09/21 04:10 Urine RBC (Auto) 1.0 /HPF (0.0-6.0) 03/09/21 04:10 Urine Bacteria (Auto) 1+ /HPF (Negative) 03/09/21 04:10 Urine Mucus Few /HPF 03/09/21 04:10 Coronavirus (PCR) Positive (Negative) A 03/09/21 08:00 Miscellaneous Test Flexitest 1 03/16/21 13:14 Good/IV: Voiding Method Indwelling Catheter Active Medications - Current Medications Current Medications: Generic Name Dose Route Start Last Admin Trade Name Freq PRN Reason Stop Dose Admin Acetaminophen 650 mg 03/09/21 01:26 03/28/21 05:15 Acetaminophen 325 Mg Tab PO 650 mg Q4H PRN Administration Pain MILD(1-3)/Fever >100.5/RAYO Albuterol 2.5 mg 03/09/21 01:26 03/18/21 21:06 Albuterol 2.5 Mg/3 Ml Nebu IH 2.5 mg Q4HRT PRN Administration Shortness Of Breath Amlodipine Besylate 5 mg 03/30/21 10:00 03/30/21 09:33 Amlodipine 5 Mg Tab PO 5 mg QDAY BLANCA Administration Arformoterol Tartrate 15 mcg 03/11/21 20:00 03/30/21 10:32 Arformoterol 15 Mcg/2 Ml Nebu IH Not Given Q12HRT BLANCA Ascorbic Acid 500 mg 03/10/21 14:00 03/30/21 09:33 Ascorbic Acid 500 Mg Tab PO 500 mg BID BLANCA Administration Bisacodyl 10 mg 03/26/21 13:43 03/26/21 13:51 Bisacodyl 10 Mg Rect Supp [place] 10 mg QDAY PRN Administration Constipation Budesonide 0.25 mg 03/11/21 20:00 03/30/21 10:32 Budesonide 0.25 Mg/2 Ml Nebu IH Not Given Q12HRT BLANCA Chlordiazepoxide HCl 75 mg 03/22/21 18:00 03/30/21 04:59 Chlordiazepoxide 25 Mg Cap PO 75 mg Q6HR BLANCA Administration Dextrose 0 ml 03/20/21 10:52 Dextrose 10% *Hypoglycemia IV PRN PRN Hypoglycemia Doxazosin Mesylate 1 mg 03/23/21 14:00 03/30/21 09:33 Doxazosin 1 Mg Tab PO 1 mg QDAY BLANCA Administration Enoxaparin Sodium 60 mg 03/29/21 22:00 03/30/21 09:34 Enoxaparin 60 Mg/0.6 Ml Inj SUB-Q 60 mg Q12HR BLANCA Administration Famotidine 20 mg 03/12/21 22:00 03/29/21 21:46 Famotidine 20 Mg Tab FEEDTUBE 20 mg BID BLANCA Administration Hydralazine HCl 50 mg 03/23/21 14:26 03/30/21 04:59 Hydralazine 25 Mg Tab PO 50 mg Q8HR BLANCA Administration Hydrophilic Ointment 1 applic 03/10/21 15:39 Lip Therapy Vaseline TP Q2HR PRN Dry Lips Fentanyl Citrate 2,000 mcg in 100 mls @ 5.897 mls/hr 03/10/21 17:00 03/30/21 10:59 Fentanyl Drip Premix IV 1.5 mcg/kg/hr TITR BLANCA 8.845 mls/hr Titration Protocol 1 MCG/KG/HR Propofol 1,000 mg in 100 mls @ 3.507 mls/hr 03/11/21 17:00 03/22/21 18:02 Diprivan 10 Mg/Ml IV 0 mcg/kg/min TITR BLANCA 0 mls/hr Titration Protocol 5 MCG/KG/MIN Dextrose/Sodium Chloride 1,000 mls @ 75 mls/hr 03/29/21 13:00 D5/0.45ns IV 03/31/21 02:19 [facility] Insulin Glargine 15 units 03/29/21 22:00 03/29/21 21:46 Insulin Glargine 100 Units/Ml SUB-Q 15 units QHS BLANCA Administration Insulin Human Lispro 0 unit 03/11/21 18:00 03/30/21 06:14 Insulin Lispro 100 Unit/Ml SUB-Q Not Given Q6HR [facility] Protocol Labetalol HCl 10 mg 03/12/21 21:13 03/21/21 16:54 Labetalol 20 Mg/4 Ml Inj IV 10 mg Q6H PRN Administration Blood Pressure Metoclopramide HCl 5 mg 03/29/21 22:00 03/30/21 04:59 Metoclopramide 10 Mg/2 Ml Inj IV 03/31/21 21:59 5 mg Q8HR BLANCA Administration Metoprolol Tartrate 12.5 mg 03/21/21 22:00 03/30/21 09:33 Metoprolol Tartrate 25 Mg Tab PO 12.5 mg BID BLANCA Administration Midazolam HCl 2 mg 03/15/21 08:49 03/30/21 08:49 Midazolam 2 Mg/2 Ml Inj IV 2 mg Q2H PRN Administration VENT SYNCHRONY Multi-Ingred Cream/Lotion/Oil/Oint 1 applic 03/10/21 15:39 Mineral Oil/Petrolatum, White Ophth Oint 3.5 Gm OU Q4HR PRN Dry Eye(s) Ondansetron HCl 4 mg 03/09/21 01:26 Ondansetron 4 Mg/2 Ml Inj IV Q8H PRN Nausea And Vomiting Oxycodone HCl 5 mg 03/30/21 12:14 Oxycodone 5 Mg Tab PO Q6H PRN Pain, Moderate (4-6) Phenyleph/Shark Oil/Min Oil/Petrol 1 applic 03/22/21 17:35 03/29/21 03:59 Pe/Mo/Pet,Wh 10 Applic/28 Gm Tube NH 1 applic Q6HR PRN Administration Hemorrhoids Prednisone 10 mg 03/29/21 10:00 03/30/21 09:33 Prednisone 10 Mg Tab PO 10 mg DAILY BLANCA Administration Quetiapine Fumarate 300 mg 03/21/21 22:00 03/30/21 09:33 Quetiapine 100 Mg Tab PO 300 mg BID BLANCA Administration Senna/Docusate Sodium 1 tab 03/10/21 22:00 03/30/21 09:33 Sennosides/Docusate Sodium 8.6/50 Mg Tab FEEDTUBE 1 tab BID BLANCA Administration Sodium Chloride 10 ml 03/09/21 10:00 03/30/21 09:34 Sodium Chloride 0.9% 10 Ml Flush Syringe IV 10 ml BID BLANCA Administration Sodium Chloride 10 ml 03/09/21 01:26 Sodium Chloride 0.9% 10 Ml Flush Syringe IV PRN PRN LINE FLUSH Sodium Chloride 10 ml 03/20/21 09:48 Sodium Chloride 0.9% 50 Ml Ivpb IV PRN PRN FLUSH Zinc Sulfate 220 mg 03/10/21 14:00 03/30/21 09:33 Zinc Sulfate 220 Mg Cap PO 220 mg BID BLANCA Administration Nutrition/Malnutrition Assess - Dietary Evaluation Nutrition/Malnutrition Findings: Nutrition Notes Start: 03/09/21 08:49 Freq: Status: Active Protocol: Document 03/27/21 14:48 BARBRALEANN (Rec: 03/27/21 15:01 NHALL [id number]) Nutrition Notes Initial or Follow up Reassessment Current Diagnosis Diabetes,Sepsis,Hypertension, Respiratory Failure Other Pertinent Diagnosis COVID-19, Bilateral Pneumonia. Current Diet TF-Glucerna 1.2 at 40 ml/hr Labs/Tests BG 150 Na 136 (Na lab been <145 since 03/24) Pertinent Medications Solumedrol Height 5 ft 11 in Weight 122 kg [place] Body Weight (kg) 78.18 BMI 37.5 Weight Status Obese Subjective/Other Information Pt remains on vent support, but no longer receives propofol. RN informed of intent to increase TF goal rate. Percent of energy/protein needs met: 47% energy 45% pro Burn Absent Trauma Absent #1 Nutrition Diagnosis Inadequate oral intake Diagnosis Progress(for reassessment Continues documentation) Is patient on ventilator? Yes Is Patient Ambulatory and/or Out of Bed No REE-([place]-confined to bed) [phone] Calculation Used for Recommendations 70-80% energy needs Additional Notes Energy needs: 9223-2647 kcal/ day Pro needs 1.3g/kg adjBW: 130g/ day Fluid needs 1ml/kcal Nutrition Intervention Nutrition Support: Increase TF goal rate to 70ml/ hr with 110ml water flush q4h. Kcal 2,016 Protein (gm) 101 Carbohydrates (gm) 192 Fat (gm) 101 Fluid (mL) 1,352 Fiber (gm) 27 Goal #1 TF tolerance Goal #2 TF to meet at least 75% energy and pro needs Follow-Up By: 03/31/21 Additional Comments F/U: TF goal rate increase/ tolerance, vent status, Na lab /water flush
[2021-03-24] MEDS: methylPREDNISolone Sod Succinate 40 MG/1 ML INJ IV SCH (21:04)
[2021-03-25] MEDS: INSULIN LISPRO 100 UNIT/ML SUB-Q SCH ×4 (00:22→17:57)
[2021-03-25] MEDS: chlordiazePOXIDE 25 MG CAP PO SCH ×4 (00:29→18:24)
[2021-03-25 05:18] LABS: Hematocrit 37.4 % (35.5-45.6); Mean Corpuscular HGB Conc 32 % (32-34); Mean Corpuscular Volume 94 fl (84-94); Platelet Count 121 K/mm3 (140-440); Red Blood Count 3.99 M/mm3 (3.65-5.03); Red Cell Distribution Width 16.1 % (13.2-15.2)
[2021-03-25] MEDS: hydrALAZINE 25 MG TAB PO SCH ×3 (05:20→22:01)
[2021-03-25 05:31] LABS: Blood Urea Nitrogen 25 mg/dL (9-20); Calcium 8.7 mg/dL (8.4-10.2); Hemolysis Index 19
[2021-03-25 05:33] LABS: BUN/Creatinine Ratio 36
[2021-03-25] MEDS: fentaNYL DRIP Premix 2,000 MCG/100 ML BAG IV SCH ×2 (08:32→16:04)
[2021-03-25] MEDS: ARFORMOTEROL 15 MCG/2 ML NEBU IH SCH ×2 (08:35→19:58)
[2021-03-25] MEDS: BUDESONIDE 0.25 MG/2 ML NEBU IH SCH ×2 (08:35→19:59)
--- NOTE | 2021-03-25 08:48 | Progress Note ---
<FLORIANMARISABEL TrishLester - Last Filed: 03/25/21 11:55> Assessment and Plan Assessment and plan: This is a 61-year-old man with HTN and DM admitted with COVID-19 pneumonia, acute hypoxic respiratory failure, sepsis Severe sepsis (POA), COVID 19 PNA, Stenotrophomonas Maltophillia in trachial aspirate -Infectious disease consulted, appreciate recommendation -S/p Actemra 03/10/2021 -IV remdesivir for 5 days -Solumederol 60mg q 8 -weaning started -Prophylactic anticoagulation per hospital protocol -Droplet/isolation precautions -Monitor WBC and temperature curve -03/08 blood culture x2 with no growth to date and tracheal aspirate GNR -Speciated to Stenotrophomonas Maltophillia -Bactrim Acute hypoxic respiratory failure -CCM consulted, appreciate recommendations -CT chest shows severe patchy multifocal ground glass airspace disease -Intubated on 03/10 with a 7.50 ETT at 20 for the lips -A.m. vent settings: Assist control tidal volume 450, rate 12, PEEP 8, FiO2 50% -See RT notes for titration -Pt on CPAP trial -A.m. ABG and CXR noted -VAP bundle -SPO2 monitoring -Albuterol as needed, Brovana and Pulmicort -Surgery consulted for trach/PEG -CCM plans to pressure support trial patient for 2 to 3 hours/day Acute Metabolic Encephalopathy -Avoid delirium -Reorientation as needed -Sedated with propofol and fentanyl -Seroquel, Librium -RASS goal -1 to -2 -As needed analgesia -Maintain sleep-wake cycle -Bilateral restraints in place for safety -SAT and SBT when appropriate -EKG for Qtc monitoring Superficial thrombus in left gastrocnemius vein -Bilateral lower extremity ultrasound negative for DVT, superficial thrombus in left gastrocnemius vein -repeat BLE Doppler US show superficial thrombus -CTA chest shows no gross pulm embolism -Trend CBC -SCDs to BLE while in bed -Transfuse hemoglobin less than 7 -Lovenox prophylactic dosing -Monitor for signs of bleeding h/o HTN -Blood pressure monitoring per protocol -Cardiology consulted, appreciate recommendations -Echocardiogram shows a mildly dilated ascending aorta, normal LV systolic function, mild concentric LVH, LVEF 60 to 65% -Hydralazine and metoprolol, titrate as needed Obesity -24 hours +17 mL -PPI -NTR consulted for tube feedings -BR: Senokot -BMS removed due to external hemorrhoids (as needed Preparation H) Endo: h/o DM -Avoid hypoglycemia -SSI, lantus->increase as needed -Accu-Cheks q. 6 The high probability of a clinically significant, sudden or life threatening deterioration of the [multi] system(s) required my full and direct attention, intervention and personal management. The aggregate critical care time was [60] minutes. This time is in addition to time spent performing reported procedures but includes the following: [x] Data Review and interpretation [x] Patient assessment and monitoring of vital signs [x] Documentation [x] Medication orders and management Disposition Plan: icu Total Time Spent with Patient (Minutes): 60 History Interval history: This is a 61-year-old male with HTN and DM who presented to the emergency department on 03/09 with shortness of breath and hypoxia via EMS. Patient had apparently been feeling ill for proxy 1 week prior to mentation. Upon EMS arrival patient SPO2 was in the low 70s and improved to upper 80slow 90s on nonrebreather and he was transported to [facility] in the emergency department patient was noted to be hypoxic and placed on a BiPAP with improvement to mentation and hypoxia. CXR showed bilateral patchy infiltrates. Lab work showed leukocytosis, elevated D-dimer, hyponatremia, hypochloremia and elevated COVID-19 markers with elevated BNP. CTA chest showed no pulmonary embolism. Patient was admitted to the hospitalist service as a COVID-19 PUI and started on antibiotics and Decadron with consult to infectious disease. 03/09: The patient was seen and evaluated today, and he was found to be hemodynamically stable. The patient is currently on BiPAP for possible COVID-19 pneumonia. He was started on Lovenox 1mg/kg for DVT ppx in the setting of d- dimer > 10,000. Infectious Disease was consulted. The patient is pending a TTE. 03/10: No acute events overnight, patient was intubated in the afternoon transferred to ICU 03/11: Patient started on Lantus, free water flushes increased, propofol drip resumed and oral antihypertensive added. 03/12: lantus increased, k at 5, will monitor. I updated his family and his stated that he is not vaccinated. He does have HTN and she will call the RN to update home medications. She did say he takes bystolic and amlopine. She inquired about ventilator and lab work. She had no further questions. 03/13: KVNG overnight. Patient remains hyperglycemic, basal insulin adjusted and increased to Q12hrs. Patient is overall net positive since admit X1 dose of IV lasix, repeat BMP this afternoon. 03/14: Failed SAT this am due to increase agitation, tachycardia and hypertension. Remains on propofol and fentanyl gtt. Hyperkalemia treated with PO kayaxalate. Patient responded to IV lasix yesterday additional dose again today for a net negative balance. Repeat BMP this afternoon. Insulin adjusted for hyperglycemia. 03/15: Remains encephalopathic, not following commansd. Orders placed for CT head/Brain and Neuro consulted. Rectal bleeding subsided, most likely due to hemorrhoids. H&H is stable will continue to monitor. Kayaxexalate for high K, repeat labs 4 to 6hrs post treatment. 03/16: Still agiated this am, CT head with no acute Abn. CXR and ABG noted- evolving pna and worsening hypoxia, now with low grade fevers. Sputum culture ordered, IV Abx added, ID on cosult. 03/17: This am ABG noted, hypoxia improved. Continue to wean FiO2 as tolerated. Still with low grade fevers, on IV Abx per ID. Still with periods of confusion despite sedation, seroquel increased. F/u CXR in the am 03/18: still very agitated especially when off sedation, with hypertension and tachycardia. Continue sedation for RASS -2, PRN antihypertensive for SPB greater than 160. This febrile this am, continue current IV abx per ID 03/19: Patient afebrile overnight, continue IV Abx per ID. ABG also improved this am, continue to wean FIO2 as tolerated. PRN antihypertensive for hypertension. 03/20: Hyperkalemia treated with Kayexalate, Good discontinued, vancomycin and cefepime stopped started Bactrim by ID. Steroid taper started. 03/21: BB started for hypertension, Seroquel increased for agitation and Librium started no acute events reported overnight. [facility] made vent changes 03/22: Adjustment to anxiolytics, respiratory rate on ventilator per [facility]. Patient noted to have bleeding hemorrhoids with clot, requested RN to remove bowel management system and will order Preparation H. 03/23: Given no confirmed DVT or PE (only superficial thrombus noted on Dopplers) therapeutic Lovenox changed to prophylactic Lovenox. Started on doxazosin to help with retention. Consulted surgery for tracheostomy and propofol discontinued. 03/24: Surgery consult completed, patient changed to prophylaxis anticoagulation, started on doxazosin yesterday with plans to remove Good catheter in 48 hours. Patient with slight hypokalemia today and given Kayexalate. No acute events reported overnight. 03/25: No acute events reported overnight. Patient remains on fentanyl drip and on CPAP trial this morning. Hospitalist Physical - Physical exam Narrative exam: General appearance: Present: well-nourished, obese, other (sedated) - EENT Eyes: Present: PERRL, EOM intact ENT: hearing intact, clear oral mucosa - Neck Neck: Present: normal ROM - Respiratory Respiratory effort: normal Respiratory: bilateral: diminished - Cardiovascular Rhythm: regular Heart Sounds: Present: S1 & S2. Absent: systolic murmur, diastolic murmur - Extremities Extremities: no ischemia, pulses intact, pulses symmetrical, No edema, normal temperature, normal color Peripheral Pulses: within normal limits - Abdominal General gastrointestinal: soft, non-tender, non-distended, normal bowel sounds - Integumentary Integumentary: Present: warm, dry - Psychiatric Psychiatric: other - Neurologic Neurologic: other - Allied Health Allied health notes reviewed: nursing, RT - Constitutional Vitals: Temp Pulse Resp BP Pulse Ox 98.8 F 107 H 27 H 124/85 100 03/25/21 08:00 03/25/21 08:42 03/25/21 08:42 03/25/21 08:42 03/25/21 08:42 General appearance: Present: no acute distress, well-nourished, obese, other (Intubated and sedated) Results - Labs CBC & Chem 7: 03/25/21 04:32 03/25/21 04:32 Labs: Laboratory Last Values WBC 8.5 K/mm3 (4.5-11.0) 03/25/21 04:32 RBC 3.99 M/mm3 (3.65-5.03) 03/25/21 04:32 Hgb 12.0 gm/dl (11.8-15.2) 03/25/21 04:32 Hct 37.4 % (35.5-45.6) 03/25/21 04:32 MCV 94 fl (84-94) 03/25/21 04:32 MCH 30 pg (28-32) 03/25/21 04:32 MCHC 32 % (32-34) 03/25/21 04:32 RDW 16.1 % (13.2-15.2) H 03/25/21 04:32 Plt Count 121 K/mm3 (140-440) L 03/25/21 04:32 Lymph % (Auto) 12.6 % (13.4-35.0) L 03/17/21 04:40 [place] % (Auto) 11.3 % (0.0-7.3) H 03/17/21 04:40 Eos % (Auto) 0.4 % (0.0-4.3) 03/17/21 04:40 Baso % (Auto) 0.8 % (0.0-1.8) 03/17/21 04:40 Lymph # (Auto) 1.8 K/mm3 (1.2-5.4) 03/17/21 04:40 [place] # (Auto) 1.6 K/mm3 (0.0-0.8) H 03/17/21 04:40 Eos # (Auto) 0.1 K/mm3 (0.0-0.4) 03/17/21 04:40 Baso # (Auto) 0.1 K/mm3 (0.0-0.1) 03/17/21 04:40 Add Manual Diff Complete 03/10/21 04:29 Total Counted 100 03/10/21 04:29 Seg Neutrophils % 74.9 % (40.0-70.0) H 03/17/21 04:40 Seg Neuts % (Manual) 94.0 % (40.0-70.0) H 03/10/21 04:29 Band Neutrophils % 0 % 03/10/21 04:29 Lymphocytes % (Manual) 1.0 % (13.4-35.0) L 03/10/21 04:29 Reactive Lymphs % (Man) 0 % 03/10/21 04:29 Monocytes % (Manual) 5.0 % (0.0-7.3) 03/10/21 04:29 Eosinophils % (Manual) 0 % (0.0-4.3) 03/10/21 04:29 Basophils % (Manual) 0 % (0.0-1.8) 03/10/21 04:29 Metamyelocytes % 0 % 03/10/21 04:29 Myelocytes % 0 % 03/10/21 04:29 Promyelocytes % 0 % 03/10/21 04:29 Blast Cells % 0 % 03/10/21 04:29 Nucleated RBC % 3.0 % (0.0-0.9) H 03/10/21 04:29 Seg Neutrophils # 10.5 K/mm3 (1.8-7.7) H 03/17/21 04:40 Seg Neutrophils # Man 19.4 K/mm3 (1.8-7.7) H 03/10/21 04:29 Band Neutrophils # 0.0 K/mm3 03/10/21 04:29 Lymphocytes # (Manual) 0.2 K/mm3 (1.2-5.4) L 03/10/21 04:29 Abs React Lymphs (Man) 0.0 K/mm3 03/10/21 04:29 Monocytes # (Manual) 1.0 K/mm3 (0.0-0.8) H 03/10/21 04:29 Eosinophils # (Manual) 0.0 K/mm3 (0.0-0.4) 03/10/21 04:29 Basophils # (Manual) 0.0 K/mm3 (0.0-0.1) 03/10/21 04:29 Metamyelocytes # 0.0 K/mm3 03/10/21 04:29 Myelocytes # 0.0 K/mm3 03/10/21 04:29 Promyelocytes # 0.0 K/mm3 03/10/21 04:29 Blast Cells # 0.0 K/mm3 03/10/21 04:29 WBC Morphology Not Reportable 03/10/21 04:29 Hypersegmented Neuts Not Reportable 03/10/21 04:29 Hyposegmented Neuts Not Reportable 03/10/21 04:29 Hypogranular Neuts Not Reportable 03/10/21 04:29 Smudge Cells Not Reportable 03/10/21 04:29 Toxic Granulation Not Reportable 03/10/21 04:29 Toxic Vacuolation Not Reportable 03/10/21 04:29 Dohle Bodies Not Reportable 03/10/21 04:29 Pelger-Huet Anomaly Not Reportable 03/10/21 04:29 Mely Rods Not Reportable 03/10/21 04:29 Platelet Estimate Consistent w auto 03/10/21 04:29 Clumped Platelets Not Reportable 03/10/21 04:29 Plt Clumps, EDTA Not Reportable 03/10/21 04:29 Large Platelets Not Reportable 03/10/21 04:29 Giant Platelets Not Reportable 03/10/21 04:29 Platelet Satelliting Not Reportable 03/10/21 04:29 Plt Morphology Comment Not Reportable 03/10/21 04:29 RBC Morphology Normal 03/10/21 04:29 Dimorphic RBCs Not Reportable 03/10/21 04:29 Polychromasia Not Reportable 03/10/21 04:29 Hypochromasia Not Reportable 03/10/21 04:29 Poikilocytosis Not Reportable 03/10/21 04:29 Anisocytosis Not Reportable 03/10/21 04:29 Microcytosis Not Reportable 03/10/21 04:29 Macrocytosis Not Reportable 03/10/21 04:29 Spherocytes Not Reportable 03/10/21 04:29 Pappenheimer Bodies Not Reportable 03/10/21 04:29 Sickle Cells Not Reportable 03/10/21 04:29 Target Cells Not Reportable 03/10/21 04:29 Tear Drop Cells Not Reportable 03/10/21 04:29 Ovalocytes Not Reportable 03/10/21 04:29 Helmet Cells Not Reportable 03/10/21 04:29 [place] Bodies Not Reportable 03/10/21 04:29 Piqua Rings Not Reportable 03/10/21 04:29 Shama Cells Not Reportable 03/10/21 04:29 Bite Cells Not Reportable 03/10/21 04:29 Crenated Cell Not Reportable 03/10/21 04:29 Elliptocytes Not Reportable 03/10/21 04:29 Acanthocytes (Spur) Not Reportable 03/10/21 04:29 Rouleaux Not Reportable 03/10/21 04:29 Hemoglobin C Crystals Not Reportable 03/10/21 04:29 Schistocytes Not Reportable 03/10/21 04:29 Malaria parasites Not Reportable 03/10/21 04:29 Shaheen Bodies Not Reportable 03/10/21 04:29 Hem Pathologist Commnt No 03/10/21 04:29 PT 16.1 Sec. (12.2-14.9) H 03/08/21 20:24 INR 1.17 (0.87-1.13) H 03/08/21 20:24 APTT 28.0 Sec. (24.2-36.6) 03/08/21 20:24 D-Dimer 1359.12 ng/mlDDU (0-234) H 03/17/21 04:40 ABG pH 7.345 pH Units (7.350-7.450) L 03/23/21 08:35 POC ABG pCO2 71.9 mmHg (32.0-48.0) H 03/12/21 21:54 ABG pCO2 60.4 mm Hg 03/23/21 08:35 POC ABG pO2 53.6 mmHg (83-108) L 03/12/21 21:54 ABG pO2 167.9 mm Hg (80.0-90.0) H 03/23/21 08:35 POC ABG HCO3 30.0 03/12/21 21:54 ABG HCO3 32.2 mmol/L (20.0-26.0) H 03/23/21 08:35 ABG O2 Saturation 98.9 % (95.0-99.0) 03/23/21 08:35 ABG O2 Content 18.6 (0.0-44) 03/23/21 08:35 POC ABG Base Excess 0.5 03/12/21 21:54 ABG Base Excess 4.8 mmol/L (-2.0-3.0) H 03/23/21 08:35 ABG Hemoglobin 13.4 gm/dl (14.0-18.0) L 03/23/21 08:35 ABG Oxyhemoglobin 84.8 (94-98) L 03/12/21 21:54 ABG Carboxyhemoglobin 1.5 % (0.0-5.0) 03/23/21 08:35 ABG Methemoglobin 0.8 % (0.0-1.5) 03/23/21 08:35 ABG Sodium 134.2 mmol/L (136.0-145.0) L 03/12/21 21:54 ABG Potassium 4.9 mmol/L (3.40-4.50) H 03/12/21 21:54 ABG Chloride 99.0 mmol/L (98-107) 03/12/21 21:54 ABG Glucose 306 mg/dL (65-95) H 03/12/21 21:54 Oxyhemoglobin 96.6 % (95.0-99.0) 03/23/21 08:35 Carboxyhemoglobin 0.6 (0.5-1.5) 03/12/21 21:54 FiO2 100 % 03/23/21 08:35 FiO2 % 50.0 03/12/21 21:54 Sodium 135 mmol/L (137-145) L D 03/25/21 04:32 Potassium 5.0 mmol/L (3.6-5.0) 03/25/21 04:32 Chloride 102.2 mmol/L (98-107) 03/25/21 04:32 Carbon Dioxide 28 mmol/L (22-30) 03/25/21 04:32 Anion Gap 10 mmol/L 03/25/21 04:32 BUN 25 mg/dL (9-20) H 03/25/21 04:32 Creatinine 0.7 mg/dL (0.8-1.3) L 03/25/21 04:32 Estimated GFR > 60 ml/min 03/25/21 04:32 BUN/Creatinine Ratio 36 % 03/25/21 04:32 Glucose 168 mg/dL (75-100) H 03/25/21 04:32 POC Glucose 149 mg/dL (70-105) H 03/25/21 05:21 Lactic Acid 1.90 mmol/L (0.7-2.0) 03/08/21 23:51 Calcium 8.7 mg/dL (8.4-10.2) 03/25/21 04:32 Phosphorus 3.20 mg/dL (2.5-4.5) D 03/23/21 07:04 Magnesium 2.50 mg/dL (1.7-2.3) H 03/23/21 07:04 Ferritin 976.4 ng/mL (30.0-300.0) H 03/15/21 04:00 Total Bilirubin 0.20 mg/dL (0.1-1.2) 03/12/21 08:03 AST 10 units/L (5-40) 03/12/21 08:03 ALT 16 units/L (7-56) 03/12/21 08:03 Alkaline Phosphatase 77 units/L (35-129) 03/12/21 08:03 Lactate Dehydrogenase 630 units/L (91-180) H 03/15/21 06:06 C-Reactive Protein 0.40 mg/dL (0.00-1.30) 03/17/21 04:40 NT-Pro-B Natriuret Pep 1053 pg/mL (0-900) H 03/08/21 20:24 Total Protein 6.0 g/dL (6.3-8.2) L 03/12/21 08:03 Albumin 2.9 g/dL (3.9-5) L 03/12/21 08:03 Albumin/Globulin Ratio 0.9 % 03/12/21 08:03 Triglycerides 305 mg/dL (2-149) H 03/22/21 07:26 Procalcitonin 0.05 ng/mL (<0.15) 03/17/21 04:40 Arterial Blood Glucose 306 mg/dL (65-95) H 03/12/21 21:54 Arterial Blood Ionized Calcium 5.0 mg/dL (4.6-5.3) 03/12/21 21:54 Urine Color Yellow (Yellow) 03/09/21 04:10 Urine Turbidity Slightly-cloudy (Clear) 03/09/21 04:10 Urine pH 5.0 (5.0-7.0) 03/09/21 04:10 Ur Specific Omer 1.041 (1.003-1.030) H 03/09/21 04:10 Urine Protein 100 mg/dl mg/dL (Negative) 03/09/21 04:10 Urine Glucose (UA) Neg mg/dL (Negative) 03/09/21 04:10 Urine Ketones Neg mg/dL (Negative) 03/09/21 04:10 Urine Blood Mod (Negative) 03/09/21 04:10 Urine Nitrite Neg (Negative) 03/09/21 04:10 Urine Bilirubin Neg (Negative) 03/09/21 04:10 Urine Urobilinogen 2.0 mg/dL (<2.0) 03/09/21 04:10 Ur Leukocyte Esterase Neg (Negative) 03/09/21 04:10 Urine WBC (Auto) 4.0 /HPF (0.0-6.0) 03/09/21 04:10 Urine RBC (Auto) 1.0 /HPF (0.0-6.0) 03/09/21 04:10 Urine Bacteria (Auto) 1+ /HPF (Negative) 03/09/21 04:10 Urine Mucus Few /HPF 03/09/21 04:10 Coronavirus (PCR) Positive (Negative) A 03/09/21 08:00 Miscellaneous Test Flexitest 1 03/16/21 13:14 Good/IV: Voiding Method Indwelling Catheter Active Medications - Current Medications Current Medications: Generic Name Dose Route Start Last Admin Trade Name Freq PRN Reason Stop Dose Admin Acetaminophen 650 mg 03/09/21 01:26 03/23/21 10:03 Acetaminophen 325 Mg Tab PO 650 mg Q4H PRN Administration Pain MILD(1-3)/Fever >100.5/RAYO Albuterol 2.5 mg 03/09/21 01:26 03/18/21 21:06 Albuterol 2.5 Mg/3 Ml Nebu IH 2.5 mg Q4HRT PRN Administration Shortness Of Breath Arformoterol Tartrate 15 mcg 03/11/21 20:00 03/25/21 08:35 Arformoterol 15 Mcg/2 Ml Nebu IH Not Given Q12HRT BLANCA Ascorbic Acid 500 mg 03/10/21 14:00 03/24/21 21:00 Ascorbic Acid 500 Mg Tab PO 500 mg BID BLANCA Administration Budesonide 0.25 mg 03/11/21 20:00 03/25/21 08:35 Budesonide 0.25 Mg/2 Ml Nebu IH Not Given Q12HRT BLANCA Chlordiazepoxide HCl 75 mg 03/22/21 18:00 03/25/21 05:20 Chlordiazepoxide 25 Mg Cap PO 75 mg Q6HR BLANCA Administration Dextrose 0 ml 03/20/21 10:52 Dextrose 10% *Hypoglycemia IV PRN PRN Hypoglycemia Doxazosin Mesylate 1 mg 03/23/21 14:00 03/24/21 09:43 Doxazosin 1 Mg Tab PO 1 mg QDAY BLANCA Administration Enoxaparin Sodium 60 mg 03/24/21 10:00 03/24/21 09:42 Enoxaparin 60 Mg/0.6 Ml Inj SUB-Q 60 mg QDAY BLANCA Administration Protocol Famotidine 20 mg 03/12/21 22:00 03/24/21 21:00 Famotidine 20 Mg Tab FEEDTUBE 20 mg BID BLANCA Administration Hydralazine HCl 50 mg 03/23/21 14:26 03/25/21 05:20 Hydralazine 25 Mg Tab PO 50 mg Q8HR BLANCA Administration Hydrophilic Ointment 1 applic 03/10/21 15:39 Lip Therapy Vaseline TP Q2HR PRN Dry Lips Fentanyl Citrate 2,000 mcg in 100 mls @ 5.897 mls/hr 03/10/21 17:00 03/24/21 23:36 Fentanyl Drip Premix IV 2 mcg/kg/hr TITR BLANCA 11.793 mls/hr Administration Protocol 1 MCG/KG/HR Propofol 1,000 mg in 100 mls @ 3.507 mls/hr 03/11/21 17:00 03/22/21 18:02 Diprivan 10 Mg/Ml IV 0 mcg/kg/min TITR BLANCA 0 mls/hr Titration Protocol 5 MCG/KG/MIN Insulin Glargine 25 units 03/14/21 10:00 03/24/21 21:03 Insulin Glargine 100 Units/Ml SUB-Q 25 units BID BLANCA Administration Insulin Human Lispro 0 unit 03/11/21 18:00 03/25/21 05:21 Insulin Lispro 100 Unit/Ml SUB-Q Not Given Q6HR [facility] Protocol Labetalol HCl 10 mg 03/12/21 21:13 03/21/21 16:54 Labetalol 20 Mg/4 Ml Inj IV 10 mg Q6H PRN Administration Blood Pressure Methylprednisolone Sodium Succinate 40 mg 03/27/21 10:00 Methylprednisolone Sod Succinate 40 Mg/1 Ml Inj IV 03/28/21 10:01 Q24HR BLANCA Methylprednisolone Sodium Succinate 40 mg 03/24/21 22:00 03/24/21 21:04 Methylprednisolone Sod Succinate 40 Mg/1 Ml Inj IV 03/26/21 10:01 40 mg 1000,2200 BLANCA Administration Metoprolol Tartrate 12.5 mg 03/21/21 22:00 03/24/21 21:00 Metoprolol Tartrate 25 Mg Tab PO 12.5 mg BID BLANCA Administration Midazolam HCl 2 mg 03/15/21 08:49 03/23/21 07:58 Midazolam 2 Mg/2 Ml Inj IV 2 mg Q2H PRN Administration VENT SYNCHRONY Multi-Ingred Cream/Lotion/Oil/Oint 1 applic 03/10/21 15:39 Mineral Oil/Petrolatum, White Ophth Oint 3.5 Gm OU Q4HR PRN Dry Eye(s) Ondansetron HCl 4 mg 03/09/21 01:26 Ondansetron 4 Mg/2 Ml Inj IV Q8H PRN Nausea And Vomiting Phenyleph/Shark Oil/Min Oil/Petrol 1 applic 03/22/21 17:35 Pe/Mo/Pet,Wh 10 Applic/28 Gm Tube NV Q6HR PRN Hemorrhoids Prednisone 10 mg 03/29/21 10:00 Prednisone 10 Mg Tab PO DAILY BLANCA Quetiapine Fumarate 300 mg 03/21/21 22:00 03/24/21 21:00 Quetiapine 100 Mg Tab PO 300 mg BID BLANCA Administration Senna/Docusate Sodium 1 tab 03/10/21 22:00 03/24/21 21:00 Sennosides/Docusate Sodium 8.6/50 Mg Tab FEEDTUBE 1 tab BID BLANCA Administration Sodium Chloride 10 ml 03/09/21 10:00 03/24/21 21:05 Sodium Chloride 0.9% 10 Ml Flush Syringe IV 10 ml BID BLANCA Administration Sodium Chloride 10 ml 03/09/21 01:26 Sodium Chloride 0.9% 10 Ml Flush Syringe IV PRN PRN LINE FLUSH Sodium Chloride 10 ml 03/20/21 09:48 Sodium Chloride 0.9% 50 Ml Ivpb IV PRN PRN FLUSH Trimethoprim/Sulfamethoxazole 1 each 03/20/21 16:00 03/24/21 21:01 Sulfamethoxazole/Trimethoprim 800/160mg Ds Tab PO 03/27/21 22:01 1 each Q12HR BLANCA Administration Protocol Zinc Sulfate 220 mg 03/10/21 14:00 03/24/21 21:01 Zinc Sulfate 220 Mg Cap PO 220 mg BID BLANCA Administration Nutrition/Malnutrition Assess - Dietary Evaluation Nutrition/Malnutrition Findings: Nutrition Notes Start: 03/09/21 08:49 Freq: Status: Active Protocol: Document 03/20/21 16:21 BRYANNA (Rec: 03/20/21 16:53 BRYANNA [id number]) Nutrition Notes Current Diagnosis Diabetes,Sepsis,Hypertension, Respiratory Failure Other Pertinent Diagnosis COVID-19, Bilateral Pneumonia. Current Diet TF-Glucerna 1.2 Tyson at 40 ml/ hr (since D 03/17). Labs/Tests 03/20: Na 146, K 5.5, Cl 111.1 , BUN 34, Crea 0.7, Glu 145, Mg 2.5. Pertinent Medications 03/20: Vit C, Insulin, ZnSO4, Propofol @ 35.07 ml/hr ( 926Kcal), others nutritionally unremarkable. Height 5 ft 11 in Weight 120 kg [place] Body Weight (kg) 78.18 BMI 36.8 Weight change and time frame 3.0 Kg body weight gain in 3 days reported. Weight Status Obese Subjective/Other Information RD consult for routine F/U on TF tolerance. Pt remains on mechanical ventilation, according to Progre[facility] notes. TF continues as prescribed. Pt continues with low-grade fever. Percent of energy/protein needs met: Prescribed Glucerna 1.2 Tyson @ 40 ml/hr provides for energy/ protein needs (1,152 Kcal/58 g ) during LOS, additionally, Propofol contributes with 926 Kcal, 87% Kcal; 46% AA. #1 Nutrition Diagnosis Inadequate oral intake Diagnosis Progress(for reassessment Continues documentation) Nutrition Intervention Nutrition Support: Continue Glucerna 1.2 @ 40 ml/ hr. Flush: 200ml water Q 4 hr ( until hypernatremia resolved). Kcal 1,152 Protein (gm) 58 Carbohydrates (gm) 110 Fat (gm) 58 Fluid (mL) 773 Fiber (gm) 15 % RDI: 48% Kcal; 46% AA. Goal #1 Provide at least 75% of energy /protein needs through Enteral Feeding during LOS. Follow-Up By: 03/27/21 Additional Comments Continue monitoring TF tolerance and BM. <RAFAEL DOMINGUEZ - Last Filed: 03/30/21 13:13> Assessment and Plan Assessment and plan: I saw and evaluated the patient. Discussed with the nurse practitioner and agree with their findings and plan as documented in this note. Hospitalist Physical - Constitutional Vitals: Temp Pulse Resp BP Pulse Ox 99.5 F 108 H 24 115/66 97 03/30/21 11:51 03/30/21 11:36 03/30/21 11:00 03/30/21 11:36 03/30/21 11:36 Results - Labs CBC & Chem 7: 03/30/21 05:36 03/30/21 05:36 Labs: Laboratory Last Values WBC 9.6 K/mm3 (4.5-11.0) 03/30/21 05:36 RBC 4.11 M/mm3 (3.65-5.03) 03/30/21 05:36 Hgb 12.2 gm/dl (11.8-15.2) 03/30/21 05:36 Hct 38.6 % (35.5-45.6) 03/30/21 05:36 MCV 94 fl (84-94) 03/30/21 05:36 MCH 30 pg (28-32) 03/30/21 05:36 MCHC 32 % (32-34) 03/30/21 05:36 RDW 16.7 % (13.2-15.2) H 03/30/21 05:36 Plt Count 183 K/mm3 (140-440) 03/30/21 05:36 Lymph % (Auto) 12.6 % (13.4-35.0) L 03/17/21 04:40 [place] % (Auto) 11.3 % (0.0-7.3) H 03/17/21 04:40 Eos % (Auto) 0.4 % (0.0-4.3) 03/17/21 04:40 Baso % (Auto) 0.8 % (0.0-1.8) 03/17/21 04:40 Lymph # (Auto) 1.8 K/mm3 (1.2-5.4) 03/17/21 04:40 [place] # (Auto) 1.6 K/mm3 (0.0-0.8) H 03/17/21 04:40 Eos # (Auto) 0.1 K/mm3 (0.0-0.4) 03/17/21 04:40 Baso # (Auto) 0.1 K/mm3 (0.0-0.1) 03/17/21 04:40 Add Manual Diff Complete 03/10/21 04:29 Total Counted 100 03/10/21 04:29 Seg Neutrophils % 74.9 % (40.0-70.0) H 03/17/21 04:40 Seg Neuts % (Manual) 94.0 % (40.0-70.0) H 03/10/21 04:29 Band Neutrophils % 0 % 03/10/21 04:29 Lymphocytes % (Manual) 1.0 % (13.4-35.0) L 03/10/21 04:29 Reactive Lymphs % (Man) 0 % 03/10/21 04:29 Monocytes % (Manual) 5.0 % (0.0-7.3) 03/10/21 04:29 Eosinophils % (Manual) 0 % (0.0-4.3) 03/10/21 04:29 Basophils % (Manual) 0 % (0.0-1.8) 03/10/21 04:29 Metamyelocytes % 0 % 03/10/21 04:29 Myelocytes % 0 % 03/10/21 04:29 Promyelocytes % 0 % 03/10/21 04:29 Blast Cells % 0 % 03/10/21 04:29 Nucleated RBC % 3.0 % (0.0-0.9) H 03/10/21 04:29 Seg Neutrophils # 10.5 K/mm3 (1.8-7.7) H 03/17/21 04:40 Seg Neutrophils # Man 19.4 K/mm3 (1.8-7.7) H 03/10/21 04:29 Band Neutrophils # 0.0 K/mm3 03/10/21 04:29 Lymphocytes # (Manual) 0.2 K/mm3 (1.2-5.4) L 03/10/21 04:29 Abs React Lymphs (Man) 0.0 K/mm3 03/10/21 04:29 Monocytes # (Manual) 1.0 K/mm3 (0.0-0.8) H 03/10/21 04:29 Eosinophils # (Manual) 0.0 K/mm3 (0.0-0.4) 03/10/21 04:29 Basophils # (Manual) 0.0 K/mm3 (0.0-0.1) 03/10/21 04:29 Metamyelocytes # 0.0 K/mm3 03/10/21 04:29 Myelocytes # 0.0 K/mm3 03/10/21 04:29 Promyelocytes # 0.0 K/mm3 03/10/21 04:29 Blast Cells # 0.0 K/mm3 03/10/21 04:29 WBC Morphology Not Reportable 03/10/21 04:29 Hypersegmented Neuts Not Reportable 03/10/21 04:29 Hyposegmented Neuts Not Reportable 03/10/21 04:29 Hypogranular Neuts Not Reportable 03/10/21 04:29 Smudge Cells Not Reportable 03/10/21 04:29 Toxic Granulation Not Reportable 03/10/21 04:29 Toxic Vacuolation Not Reportable 03/10/21 04:29 Dohle Bodies Not Reportable 03/10/21 04:29 Pelger-Huet Anomaly Not Reportable 03/10/21 04:29 Mely Rods Not Reportable 03/10/21 04:29 Platelet Estimate Consistent w auto 03/10/21 04:29 Clumped Platelets Not Reportable 03/10/21 04:29 Plt Clumps, EDTA Not Reportable 03/10/21 04:29 Large Platelets Not Reportable 03/10/21 04:29 Giant Platelets Not Reportable 03/10/21 04:29 Platelet Satelliting Not Reportable 03/10/21 04:29 Plt Morphology Comment Not Reportable 03/10/21 04:29 RBC Morphology Normal 03/10/21 04:29 Dimorphic RBCs Not Reportable 03/10/21 04:29 Polychromasia Not Reportable 03/10/21 04:29 Hypochromasia Not Reportable 03/10/21 04:29 Poikilocytosis Not Reportable 03/10/21 04:29 Anisocytosis Not Reportable 03/10/21 04:29 Microcytosis Not Reportable 03/10/21 04:29 Macrocytosis Not Reportable 03/10/21 04:29 Spherocytes Not Reportable 03/10/21 04:29 Pappenheimer Bodies Not Reportable 03/10/21 04:29 Sickle Cells Not Reportable 03/10/21 04:29 Target Cells Not Reportable 03/10/21 04:29 Tear Drop Cells Not Reportable 03/10/21 04:29 Ovalocytes Not Reportable 03/10/21 04:29 Helmet Cells Not Reportable 03/10/21 04:29 [place] Bodies Not Reportable 03/10/21 04:29 [place] Rings Not Reportable 03/10/21 04:29 Shama Cells Not Reportable 03/10/21 04:29 Bite Cells Not Reportable 03/10/21 04:29 Crenated Cell Not Reportable 03/10/21 04:29 Elliptocytes Not Reportable 03/10/21 04:29 Acanthocytes (Spur) Not Reportable 03/10/21 04:29 Rouleaux Not Reportable 03/10/21 04:29 Hemoglobin C Crystals Not Reportable 03/10/21 04:29 Schistocytes Not Reportable 03/10/21 04:29 Malaria parasites Not Reportable 03/10/21 04:29 Shaheen Bodies Not Reportable 03/10/21 04:29 Hem Pathologist Commnt No 03/10/21 04:29 PT 13.0 Sec. (12.2-14.9) 03/29/21 04:50 INR 0.88 (0.87-1.13) 03/29/21 04:50 APTT 28.0 Sec. (24.2-36.6) 03/08/21 20:24 D-Dimer 1359.12 ng/mlDDU (0-234) H 03/17/21 04:40 ABG pH 7.353 pH Units (7.350-7.450) 03/25/21 12:35 POC ABG pCO2 71.9 mmHg (32.0-48.0) H 03/12/21 21:54 ABG pCO2 61.9 mm Hg 03/25/21 12:35 POC ABG pO2 53.6 mmHg (83-108) L 03/12/21 21:54 ABG pO2 100.5 mm Hg (80.0-90.0) H 03/25/21 12:35 POC ABG HCO3 30.0 03/12/21 21:54 ABG HCO3 33.6 mmol/L (20.0-26.0) H 03/25/21 12:35 ABG O2 Saturation 97.3 % (95.0-99.0) 03/25/21 12:35 ABG O2 Content 16.2 (0.0-44) 03/25/21 12:35 POC ABG Base Excess 0.5 03/12/21 21:54 ABG Base Excess 6.4 mmol/L (-2.0-3.0) H 03/25/21 12:35 ABG Hemoglobin 12.0 gm/dl (14.0-18.0) L 03/25/21 12:35 ABG Oxyhemoglobin 84.8 (94-98) L 03/12/21 21:54 ABG Carboxyhemoglobin 1.5 % (0.0-5.0) 03/25/21 12:35 ABG Methemoglobin 0.7 % (0.0-1.5) 03/25/21 12:35 ABG Sodium 134.2 mmol/L (136.0-145.0) L 03/12/21 21:54 ABG Potassium 4.9 mmol/L (3.40-4.50) H 03/12/21 21:54 ABG Chloride 99.0 mmol/L (98-107) 03/12/21 21:54 ABG Glucose 306 mg/dL (65-95) H 03/12/21 21:54 Oxyhemoglobin 95.2 % (95.0-99.0) 03/25/21 12:35 Carboxyhemoglobin 0.6 (0.5-1.5) 03/12/21 21:54 FiO2 50 % 03/25/21 12:35 FiO2 % 50.0 03/12/21 21:54 Sodium 140 mmol/L (137-145) 03/30/21 05:36 Potassium 4.5 mmol/L (3.6-5.0) 03/30/21 05:36 Chloride 101.3 mmol/L (98-107) 03/30/21 05:36 Carbon Dioxide 29 mmol/L (22-30) 03/30/21 05:36 Anion Gap 14 mmol/L 03/30/21 05:36 BUN 11 mg/dL (9-20) 03/30/21 05:36 Creatinine 0.5 mg/dL (0.8-1.3) L 03/30/21 05:36 Estimated GFR > 60 ml/min 03/30/21 05:36 BUN/Creatinine Ratio 22 % 03/30/21 05:36 Glucose 127 mg/dL (75-100) H 03/30/21 05:36 POC Glucose 183 mg/dL (70-105) H 03/30/21 11:32 Lactic Acid 1.90 mmol/L (0.7-2.0) 03/08/21 23:51 Calcium 9.0 mg/dL (8.4-10.2) 03/30/21 05:36 Phosphorus TNR 03/28/21 07:14 Magnesium TNR 03/28/21 07:14 Ferritin 976.4 ng/mL (30.0-300.0) H 03/15/21 04:00 Total Bilirubin 0.20 mg/dL (0.1-1.2) 03/12/21 08:03 AST 10 units/L (5-40) 03/12/21 08:03 ALT 16 units/L (7-56) 03/12/21 08:03 Alkaline Phosphatase 77 units/L (35-129) 03/12/21 08:03 Lactate Dehydrogenase 630 units/L (91-180) H 03/15/21 06:06 C-Reactive Protein 0.40 mg/dL (0.00-1.30) 03/17/21 04:40 NT-Pro-B Natriuret Pep 1053 pg/mL (0-900) H 03/08/21 20:24 Total Protein 6.0 g/dL (6.3-8.2) L 03/12/21 08:03 Albumin 2.9 g/dL (3.9-5) L 03/12/21 08:03 Albumin/Globulin Ratio 0.9 % 03/12/21 08:03 Triglycerides 305 mg/dL (2-149) H 03/22/21 07:26 Procalcitonin 0.05 ng/mL (<0.15) 03/17/21 04:40 Arterial Blood Glucose 306 mg/dL (65-95) H 03/12/21 21:54 Arterial Blood Ionized Calcium 5.0 mg/dL (4.6-5.3) 03/12/21 21:54 Urine Color Yellow (Yellow) 03/09/21 04:10 Urine Turbidity Slightly-cloudy (Clear) 03/09/21 04:10 Urine pH 5.0 (5.0-7.0) 03/09/21 04:10 Ur Specific Omer 1.041 (1.003-1.030) H 03/09/21 04:10 Urine Protein 100 mg/dl mg/dL (Negative) 03/09/21 04:10 Urine Glucose (UA) Neg mg/dL (Negative) 03/09/21 04:10 Urine Ketones Neg mg/dL (Negative) 03/09/21 04:10 Urine Blood Mod (Negative) 03/09/21 04:10 Urine Nitrite Neg (Negative) 03/09/21 04:10 Urine Bilirubin Neg (Negative) 03/09/21 04:10 Urine Urobilinogen 2.0 mg/dL (<2.0) 03/09/21 04:10 Ur Leukocyte Esterase Neg (Negative) 03/09/21 04:10 Urine WBC (Auto) 4.0 /HPF (0.0-6.0) 03/09/21 04:10 Urine RBC (Auto) 1.0 /HPF (0.0-6.0) 03/09/21 04:10 Urine Bacteria (Auto) 1+ /HPF (Negative) 03/09/21 04:10 Urine Mucus Few /HPF 03/09/21 04:10 Coronavirus (PCR) Positive (Negative) A 03/09/21 08:00 Miscellaneous Test Flexitest 1 03/16/21 13:14 Good/IV: Voiding Method Indwelling Catheter Active Medications - Current Medications Current Medications: Generic Name Dose Route Start Last Admin Trade Name Freq PRN Reason Stop Dose Admin Acetaminophen 650 mg 03/09/21 01:26 03/28/21 05:15 Acetaminophen 325 Mg Tab PO 650 mg Q4H PRN Administration Pain MILD(1-3)/Fever >100.5/RAYO Albuterol 2.5 mg 03/09/21 01:26 03/18/21 21:06 Albuterol 2.5 Mg/3 Ml Nebu IH 2.5 mg Q4HRT PRN Administration Shortness Of Breath Amlodipine Besylate 5 mg 03/30/21 10:00 03/30/21 09:33 Amlodipine 5 Mg Tab PO 5 mg QDAY BLANCA Administration Arformoterol Tartrate 15 mcg 03/11/21 20:00 03/30/21 10:32 Arformoterol 15 Mcg/2 Ml Nebu IH Not Given Q12HRT BLANCA Ascorbic Acid 500 mg 03/10/21 14:00 03/30/21 09:33 Ascorbic Acid 500 Mg Tab PO 500 mg BID BLANCA Administration Bisacodyl 10 mg 03/26/21 13:43 03/26/21 13:51 Bisacodyl 10 Mg Rect Supp NV 10 mg QDAY PRN Administration Constipation Budesonide 0.25 mg 03/11/21 20:00 03/30/21 10:32 Budesonide 0.25 Mg/2 Ml Nebu IH Not Given Q12HRT BLANCA Chlordiazepoxide HCl 75 mg 03/22/21 18:00 03/30/21 04:59 Chlordiazepoxide 25 Mg Cap PO 75 mg Q6HR BLANCA Administration Dextrose 0 ml 03/20/21 10:52 Dextrose 10% *Hypoglycemia IV PRN PRN Hypoglycemia Doxazosin Mesylate 1 mg 03/23/21 14:00 03/30/21 09:33 Doxazosin 1 Mg Tab PO 1 mg QDAY [facility] Administration Enoxaparin Sodium 60 mg 03/29/21 22:00 03/30/21 09:34 Enoxaparin 60 Mg/0.6 Ml Inj SUB-Q 60 mg Q12HR BLANCA Administration Famotidine 20 mg 03/12/21 22:00 03/29/21 21:46 Famotidine 20 Mg Tab FEEDTUBE 20 mg BID BLANCA Administration Hydralazine HCl 50 mg 03/23/21 14:26 03/30/21 04:59 Hydralazine 25 Mg Tab PO 50 mg Q8HR [facility] Administration Hydrophilic Ointment 1 applic 03/10/21 15:39 Lip Therapy Vaseline TP Q2HR PRN Dry Lips Fentanyl Citrate 2,000 mcg in 100 mls @ 5.897 mls/hr 03/10/21 17:00 03/30/21 10:59 Fentanyl Drip Premix IV 1.5 mcg/kg/hr TITR BLANCA 8.845 mls/hr Titration Protocol 1 MCG/KG/HR Propofol 1,000 mg in 100 mls @ 3.507 mls/hr 03/11/21 17:00 03/22/21 18:02 Diprivan 10 Mg/Ml IV 0 mcg/kg/min TITR BLANCA 0 mls/hr Titration Protocol 5 MCG/KG/MIN Dextrose/Sodium Chloride 1,000 mls @ 75 mls/hr 03/29/21 13:00 D5/0.45ns IV 03/31/21 02:19 DIRECT BLANCA Insulin Glargine 15 units 03/29/21 22:00 03/29/21 21:46 Insulin Glargine 100 Units/Ml SUB-Q 15 units QHS BLANCA Administration Insulin Human Lispro 0 unit 03/11/21 18:00 03/30/21 06:14 Insulin Lispro 100 Unit/Ml SUB-Q Not Given Q6HR [facility] Protocol Labetalol HCl 10 mg 03/12/21 21:13 03/21/21 16:54 Labetalol 20 Mg/4 Ml Inj IV 10 mg Q6H PRN Administration Blood Pressure Metoclopramide HCl 5 mg 03/29/21 22:00 03/30/21 04:59 Metoclopramide 10 Mg/2 Ml Inj IV 03/31/21 21:59 5 mg Q8HR BLANCA Administration Metoprolol Tartrate 12.5 mg 03/21/21 22:00 03/30/21 09:33 Metoprolol Tartrate 25 Mg Tab PO 12.5 mg BID BLANCA Administration Midazolam HCl 2 mg 03/15/21 08:49 03/30/21 08:49 Midazolam 2 Mg/2 Ml Inj IV 2 mg Q2H PRN Administration VENT SYNCHRONY Multi-Ingred Cream/Lotion/Oil/Oint 1 applic 03/10/21 15:39 Mineral Oil/Petrolatum, White Ophth Oint 3.5 Gm OU Q4HR PRN Dry Eye(s) Ondansetron HCl 4 mg 03/09/21 01:26 Ondansetron 4 Mg/2 Ml Inj IV Q8H PRN Nausea And Vomiting Oxycodone HCl 5 mg 03/30/21 12:14 Oxycodone 5 Mg Tab PO Q6H PRN Pain, Moderate (4-6) Phenyleph/Shark Oil/Min Oil/Petrol 1 applic 03/22/21 17:35 03/29/21 03:59 Pe/Mo/Pet,Wh 10 Applic/28 Gm Tube NV 1 applic Q6HR PRN Administration Hemorrhoids Prednisone 10 mg 03/29/21 10:00 03/30/21 09:33 Prednisone 10 Mg Tab PO 10 mg DAILY BLANCA Administration Quetiapine Fumarate 300 mg 03/21/21 22:00 03/30/21 09:33 Quetiapine 100 Mg Tab PO 300 mg BID BLANCA Administration Senna/Docusate Sodium 1 tab 03/10/21 22:00 03/30/21 09:33 Sennosides/Docusate Sodium 8.6/50 Mg Tab FEEDTUBE 1 tab BID BLANCA Administration Sodium Chloride 10 ml 03/09/21 10:00 03/30/21 09:34 Sodium Chloride 0.9% 10 Ml Flush Syringe IV 10 ml BID BLANCA Administration Sodium Chloride 10 ml 03/09/21 01:26 Sodium Chloride 0.9% 10 Ml Flush Syringe IV PRN PRN LINE FLUSH Sodium Chloride 10 ml 03/20/21 09:48 Sodium Chloride 0.9% 50 Ml Ivpb IV PRN PRN FLUSH Zinc Sulfate 220 mg 03/10/21 14:00 03/30/21 09:33 Zinc Sulfate 220 Mg Cap PO 220 mg BID BLANCA Administration Nutrition/Malnutrition Assess - Dietary Evaluation Nutrition/Malnutrition Findings: Nutrition Notes Start: 03/09/21 08:49 Freq: Status: Active Protocol: Document 03/27/21 14:48 BRIAN (Rec: 03/27/21 15:01 BRIAN [id number]) Nutrition Notes Initial or Follow up Reassessment Current Diagnosis Diabetes,Sepsis,Hypertension, Respiratory Failure Other Pertinent Diagnosis COVID-19, Bilateral Pneumonia. Current Diet TF-Glucerna 1.2 at 40 ml/hr Labs/Tests BG 150 Na 136 (Na lab been <145 since 03/24) Pertinent Medications Solumedrol Height 5 ft 11 in Weight 122 kg [place] Body Weight (kg) 78.18 BMI 37.5 Weight Status Obese Subjective/Other Information Pt remains on vent support, but no longer receives propofol. RN informed of intent to increase TF goal rate. Percent of energy/protein needs met: 47% energy 45% pro Burn Absent Trauma Absent #1 Nutrition Diagnosis Inadequate oral intake Diagnosis Progress(for reassessment Continues documentation) Is patient on ventilator? Yes Is Patient Ambulatory and/or Out of Bed No REE-([facility]-confined to bed) 2449.140 Calculation Used for Recommendations 70-80% energy needs Additional Notes Energy needs: 3938-2328 kcal/ day Pro needs 1.3g/kg adjBW: 130g/ day Fluid needs 1ml/kcal Nutrition Intervention Nutrition Support: Increase TF goal rate to 70ml/ hr with 110ml water flush q4h. Kcal 2,016 Protein (gm) 101 Carbohydrates (gm) 192 Fat (gm) 101 Fluid (mL) 1,352 Fiber (gm) 27 Goal #1 TF tolerance Goal #2 TF to meet at least 75% energy and pro needs Follow-Up By: 03/31/21 Additional Comments F/U: TF goal rate increase/ tolerance, vent status, Na lab /water flush
[2021-03-25] MEDS: DOXAZOSIN 1 MG TAB PO SCH (09:30)
[2021-03-25] MEDS: QUEtiapine 100 MG TAB PO SCH ×2 (09:30→23:33)
[2021-03-25] MEDS: FAMOTIDINE 20 MG TAB FEEDTUBE SCH ×2 (09:30→22:02)
[2021-03-25] MEDS: SULFAMETHOXAZOLE/TRIMETHOPRIM 800/160MG DS TAB PO SCH ×2 (09:31→23:34)
[2021-03-25] MEDS: ZINC SULFATE 220 MG CAP PO SCH ×2 (09:31→22:09)
[2021-03-25] MEDS: METOPROLOL TARTRATE 25 MG TAB PO SCH ×2 (09:31→22:02)
[2021-03-25] MEDS: ASCORBIC ACID 500 MG TAB PO SCH ×2 (09:31→22:02)
[2021-03-25] MEDS: INSULIN GLARGINE 100 UNITS/ML SUB-Q SCH ×2 (09:33→22:01)
[2021-03-25] MEDS: ENOXAPARIN 60 MG/0.6 ML INJ SUB-Q SCH (09:33)
[2021-03-25] MEDS: SENNOSIDES/DOCUSATE SODIUM 8.6/50 MG TAB FEEDTUBE SCH ×2 (09:34→22:01)
[2021-03-25] MEDS: methylPREDNISolone Sod Succinate 40 MG/1 ML INJ IV SCH ×2 (09:41→23:32)
[2021-03-25 13:18] LABS: ABG Base Excess 6.4 mmol/L (-2.0-3.0); ABG HCO3 33.6 mmol/L (20.0-26.0); ABG Methemoglobin 0.7 % (0.0-1.5); ABG Oxygen Saturation 97.3 % (95.0-99.0); ABG PCO2 61.9 mm Hg; ABG PH 7.353 pH Units (7.350-7.450); ABG PO2 100.5 mm Hg (80.0-90.0)
--- NOTE | 2021-03-25 13:47 | Progress Note ---
Assessment and Plan Acute hypoxemic respiratory failure, on continuous noninvasive ventilation COVID-19 infection Bilateral pneumonia History of diabetes Obesity Hypertension Leukocytosis Possible venous thromboembolic phenomena with significantly elevated D-dimers DM II Elevated serum inflammatory markers to include CRP levels, ferritin and LDH - ETT day # 16; awaiting tracheostomy - pull yusuf after 24 hours - continue Daily SAT and SBT assessment as tolerated - continue care as below otherwise; - continue to wean supplemental oxygen for target O2 sat's > 90% acutely - VAP bundle addressed - continue lung protective strategies - continue bronchodilators with pulmonary hygiene per RT - wean per pulmonary driven protocols otherwise - continue accuchecks with glycemic control per SSI (While critically ill target blood glucose of 140-180 mg/dL; avoid hypoglycemia) - sedation prn for target RASS 0 to -1 - avoid nephrotoxins, renally dose all medications - avoid benzodiazepine's, reduce the possibility of delirium - AB's per ID rec's - prn analgesia per pain score - Maintenance of sleep-wake cycle, avoid delirium - G.I. & VTE prophylaxis - PT/OT/ROM exercises - mobility protocols for pressure ulcer prophylaxis - Monitor hemodynamics closely - continue other care per attending / other consultants - discharge planning ongoing concurrently COVID SPECIFIC INTERVENTIONS - Remdesivir as per ID/Pulmonary developed protocols (received) - continue systemic steroids for severe COVID-19 infection empirically (Decadron ) - follow repeat COVID tests results - zinc and vitamin C supplementation - Monitor inflammatory markers per facility protocol - ferritin, Ddimer, CRP - therapeutic anticoagulation per system Protocol based on d-dimer and clinical considerations (treatment dose) - Continue contact and airborne isolation .... Re-evaluate in am & prn CONDITION: CRITICAL PROGNOSIS: GUARDED CODE STATUS: FULL CODE The high probability of a clinically significant, sudden or life-threatening deterioration of the [respiratory, cardiovascular & hematologic] system(s) required my full and direct attention, intervention and personal management. The aggregate critical care time was [33] minutes without overlap. Time includes spent on; [x] Data Review and interpretation [x] Patient assessment and monitoring of vital signs [x] Documentation [x] Medication orders and management Subjective Date of service: 03/25/21 Principal diagnosis: COVID-19 infection; DM II; Bilateral pneumonia; Obesity; HTN Interval history: Patient is seen today for: Acute hypoxemic respiratory failure; COVID-19 infection; DM II; Bilateral pneumonia; Obesity; HTN Seen and examined at bedside; 24hour events reviewed; nursing and respiratory care staff consulted; no adverse overnight events reported to me; resting in bed; remains on MVS; tolerating bedside SBT better today; no emesis or overt aspiration Objective Vital Signs - 12hr 03/25/21 03/25/21 03/25/21 02:00 02:15 02:30 Temperature Pulse Rate 103 H 103 H 100 H Pulse Rate [ From Monitor] Respiratory 22 24 21 Rate Blood Pressure 118/74 128/76 105/62 O2 Sat by Pulse 94 92 Oximetry 03/25/21 03/25/21 03/25/21 02:45 03:00 03:15 Temperature Pulse Rate 98 H 96 H 102 H Pulse Rate [ From Monitor] Respiratory 18 17 19 Rate Blood Pressure 101/62 103/61 103/61 O2 Sat by Pulse 93 91 98 Oximetry 03/25/21 03/25/21 03/25/21 03:26 03:30 03:45 Temperature 99.1 F Pulse Rate 104 H 102 H Pulse Rate [ From Monitor] Respiratory 20 20 Rate Blood Pressure 164/85 124/81 O2 Sat by Pulse 97 97 Oximetry 03/25/21 03/25/21 03/25/21 04:00 04:15 04:17 Temperature Pulse Rate 102 H 99 H 98 H Pulse Rate [ 106 H From Monitor] Respiratory 23 18 Rate Blood Pressure 129/84 112/74 112/74 O2 Sat by Pulse 97 97 97 Oximetry 03/25/21 03/25/21 03/25/21 04:30 04:45 05:00 Temperature Pulse Rate 98 H 99 H 97 H Pulse Rate [ From Monitor] Respiratory 18 17 19 Rate Blood Pressure 124/75 116/72 110/74 O2 Sat by Pulse 96 96 97 Oximetry 03/25/21 03/25/21 03/25/21 05:15 05:20 05:30 Temperature Pulse Rate 97 H 97 H 97 H Pulse Rate [ From Monitor] Respiratory 17 15 Rate Blood Pressure 119/77 119/77 120/75 O2 Sat by Pulse 97 98 Oximetry 03/25/21 03/25/21 03/25/21 05:45 06:00 06:15 Temperature Pulse Rate 96 H 95 H 94 H Pulse Rate [ From Monitor] Respiratory 15 16 16 Rate Blood Pressure 121/72 117/69 116/70 O2 Sat by Pulse 97 97 97 Oximetry 03/25/21 03/25/21 03/25/21 06:30 06:45 07:00 Temperature Pulse Rate 94 H 93 H 94 H Pulse Rate [ From Monitor] Respiratory 15 15 16 Rate Blood Pressure 122/71 119/71 101/66 O2 Sat by Pulse 98 98 97 Oximetry 03/25/21 03/25/21 03/25/21 07:15 07:30 07:45 Temperature Pulse Rate 93 H 93 H 94 H Pulse Rate [ From Monitor] Respiratory 16 15 16 Rate Blood Pressure 113/71 107/72 119/65 O2 Sat by Pulse 98 97 97 Oximetry 03/25/21 03/25/21 03/25/21 08:00 08:15 08:30 Temperature 98.8 F Pulse Rate 94 H 92 H 98 H Pulse Rate [ 94 H From Monitor] Respiratory 17 15 15 Rate Blood Pressure 120/72 135/73 124/85 O2 Sat by Pulse 98 98 97 Oximetry 03/25/21 03/25/21 03/25/21 08:42 08:45 09:00 Temperature Pulse Rate 107 H 111 H 114 H Pulse Rate [ From Monitor] Respiratory 27 H 23 26 H Rate Blood Pressure 124/85 124/85 170/97 O2 Sat by Pulse 100 99 97 Oximetry 03/25/21 03/25/21 03/25/21 09:15 09:30 09:31 Temperature Pulse Rate 109 H 110 H 110 H Pulse Rate [ From Monitor] Respiratory 24 24 Rate Blood Pressure 149/87 163/93 163/93 O2 Sat by Pulse 96 96 Oximetry 03/25/21 03/25/21 03/25/21 09:45 10:00 10:15 Temperature Pulse Rate 110 H 105 H 100 H Pulse Rate [ From Monitor] Respiratory 18 18 16 Rate Blood Pressure 155/87 124/77 118/71 O2 Sat by Pulse 96 97 98 Oximetry 03/25/21 03/25/21 03/25/21 10:30 10:45 11:00 Temperature Pulse Rate 98 H 97 H 98 H Pulse Rate [ From Monitor] Respiratory 15 14 14 Rate Blood Pressure 119/74 109/73 116/77 O2 Sat by Pulse 99 98 98 Oximetry 03/25/21 03/25/21 03/25/21 11:15 11:30 11:45 Temperature Pulse Rate 99 H 96 H 94 H Pulse Rate [ From Monitor] Respiratory 16 13 12 Rate Blood Pressure 125/76 112/73 114/61 O2 Sat by Pulse 98 98 97 Oximetry 03/25/21 03/25/21 03/25/21 11:53 12:00 12:15 Temperature 99 F Pulse Rate 93 H 92 H 92 H Pulse Rate [ 92 H From Monitor] Respiratory 12 13 12 Rate Blood Pressure 114/61 103/69 115/67 O2 Sat by Pulse 97 97 98 Oximetry 03/25/21 03/25/21 03/25/21 12:30 12:45 13:00 Temperature Pulse Rate 91 H 90 90 Pulse Rate [ From Monitor] Respiratory 10 L 13 13 Rate Blood Pressure 109/62 103/64 113/62 O2 Sat by Pulse 97 97 97 Oximetry 03/25/21 13:15 Temperature Pulse Rate 89 Pulse Rate [ From Monitor] Respiratory 12 Rate Blood Pressure 107/70 O2 Sat by Pulse 98 Oximetry Constitutional: no acute distress (sedated), other (elderly obese male with mildly increased respiratory effort at rest on MVS) Eyes: non-icteric ENT: oropharynx moist, other (ETT 24 cm CHAITANYA) Neck: supple, no lymphadenopathy, no JVD, other (large circumference) Effort: normal Ascultation: Bilateral: diminished breath sounds, rhonchi Percussion: Bilateral: not dull Cardiovascular: regular rate and rhythm, other (tachycardia, S1,S2) Gastrointestinal: normoactive bowel sounds, soft, non-tender, non-distended (protuberant) Integumentary: normal Extremities: no cyanosis, pulses normal, no ischemia or petechiae, edema Neurologic: non-focal exam (grossly), pupils equal and round, unable to assess, other (sedated) Psychiatric: other (unable to assess re: AMS) CBC and BMP: 03/26/21 07:09 03/26/21 07:09 ABG, PT/INR, D-dimer: ABG ABG pH 7.353 pH Units (7.350-7.450) 03/25/21 12:35 POC ABG pCO2 71.9 mmHg (32.0-48.0) H 03/12/21 21:54 ABG pCO2 61.9 mm Hg 03/25/21 12:35 POC ABG pO2 53.6 mmHg (83-108) L 03/12/21 21:54 ABG pO2 100.5 mm Hg (80.0-90.0) H 03/25/21 12:35 POC ABG HCO3 30.0 03/12/21 21:54 ABG O2 Saturation 97.3 % (95.0-99.0) 03/25/21 12:35 PT/INR, D-dimer PT 16.1 Sec. (12.2-14.9) H 03/08/21 20:24 INR 1.17 (0.87-1.13) H 03/08/21 20:24 D-Dimer 1359.12 ng/mlDDU (0-234) H 03/17/21 04:40 Abnormal lab findings: Abnormal Labs 03/08/21 03/08/21 03/08/21 20:24 20:24 20:24 WBC 22.6 H RBC 5.44 H Hgb 15.7 H Hct 49.2 H MCV MCHC RDW Plt Count Lymph % (Auto) [place] % (Auto) [place] # (Auto) Seg Neutrophils % Seg Neuts % (Manual) 83.0 H Lymphocytes % (Manual) 9.0 L Monocytes % (Manual) 8.0 H Nucleated RBC % Seg Neutrophils # Seg Neutrophils # Man 18.8 H Lymphocytes # (Manual) Monocytes # (Manual) 1.8 H PT 16.1 H INR 1.17 H D-Dimer > 60012 H ABG pH POC ABG pCO2 POC ABG pO2 ABG pO2 ABG HCO3 ABG O2 Saturation ABG Base Excess ABG Hemoglobin ABG Oxyhemoglobin ABG Sodium ABG Potassium ABG Glucose Oxyhemoglobin Sodium 136 L Potassium Chloride 93.9 L Carbon Dioxide BUN 29 H Creatinine Glucose 208 H POC Glucose Lactic Acid Phosphorus Magnesium Ferritin Lactate Dehydrogenase 624 H C-Reactive Protein 18.00 H NT-Pro-B Natriuret Pep 1053 H Total Protein Albumin Triglycerides Arterial Blood Glucose Ur Specific [place] Coronavirus (PCR) 03/08/21 03/08/21 03/09/21 20:24 20:24 04:10 WBC RBC Hgb Hct MCV MCHC RDW Plt Count Lymph % (Auto) [place] % (Auto) [place] # (Auto) Seg Neutrophils % Seg Neuts % (Manual) Lymphocytes % (Manual) Monocytes % (Manual) Nucleated RBC % Seg Neutrophils # Seg Neutrophils # Man Lymphocytes # (Manual) Monocytes # (Manual) PT INR D-Dimer ABG pH POC ABG pCO2 POC ABG pO2 ABG pO2 ABG HCO3 ABG O2 Saturation ABG Base Excess ABG Hemoglobin ABG Oxyhemoglobin ABG Sodium ABG Potassium ABG Glucose Oxyhemoglobin Sodium Potassium Chloride Carbon Dioxide BUN Creatinine Glucose POC Glucose Lactic Acid 2.10 H* Phosphorus Magnesium Ferritin 877.5 H Lactate Dehydrogenase C-Reactive Protein NT-Pro-B Natriuret Pep Total Protein Albumin Triglycerides Arterial Blood Glucose Ur Specific [place] 1.041 H Coronavirus (PCR) 03/09/21 03/09/21 03/09/21 07:46 08:00 13:01 WBC RBC Hgb Hct MCV MCHC RDW Plt Count Lymph % (Auto) [place] % (Auto) [place] # (Auto) Seg Neutrophils % Seg Neuts % (Manual) Lymphocytes % (Manual) Monocytes % (Manual) Nucleated RBC % Seg Neutrophils # Seg Neutrophils # Man Lymphocytes # (Manual) Monocytes # (Manual) PT INR D-Dimer ABG pH POC ABG pCO2 POC ABG pO2 ABG pO2 ABG HCO3 ABG O2 Saturation ABG Base Excess ABG Hemoglobin ABG Oxyhemoglobin ABG Sodium ABG Potassium ABG Glucose Oxyhemoglobin Sodium Potassium Chloride Carbon Dioxide BUN Creatinine Glucose POC Glucose 191 H 182 H Lactic Acid Phosphorus Magnesium Ferritin Lactate Dehydrogenase C-Reactive Protein NT-Pro-B Natriuret Pep Total Protein Albumin Triglycerides Arterial Blood Glucose Ur Specific [place] Coronavirus (PCR) Positive A 03/09/21 03/09/21 03/09/21 15:19 17:48 18:10 WBC RBC Hgb Hct MCV MCHC RDW Plt Count Lymph % (Auto) [place] % (Auto) [place] # (Auto) Seg Neutrophils % Seg Neuts % (Manual) Lymphocytes % (Manual) Monocytes % (Manual) Nucleated RBC % Seg Neutrophils # Seg Neutrophils # Man Lymphocytes # (Manual) Monocytes # (Manual) PT INR D-Dimer ABG pH POC ABG pCO2 POC ABG pO2 ABG pO2 47.3 L ABG HCO3 26.3 H ABG O2 Saturation 83.7 L ABG Base Excess ABG Hemoglobin ABG Oxyhemoglobin ABG Sodium ABG Potassium ABG Glucose Oxyhemoglobin 82.1 L Sodium Potassium Chloride Carbon Dioxide BUN 29 H Creatinine Glucose 214 H POC Glucose 194 H Lactic Acid Phosphorus Magnesium Ferritin Lactate Dehydrogenase C-Reactive Protein NT-Pro-B Natriuret Pep Total Protein Albumin 3.4 L Triglycerides Arterial Blood Glucose Ur Specific [place] Coronavirus (PCR) 03/09/21 03/10/21 03/10/21 20:40 04:29 04:29 WBC 20.6 H RBC 5.07 H Hgb Hct 46.2 H MCV MCHC RDW Plt Count Lymph % (Auto) [place] % (Auto) [place] # (Auto) Seg Neutrophils % Seg Neuts % (Manual) 94.0 H Lymphocytes % (Manual) 1.0 L Monocytes % (Manual) Nucleated RBC % 3.0 H Seg Neutrophils # Seg Neutrophils # Man 19.4 H Lymphocytes # (Manual) 0.2 L Monocytes # (Manual) 1.0 H PT INR D-Dimer ABG pH POC ABG pCO2 POC ABG pO2 ABG pO2 ABG HCO3 ABG O2 Saturation ABG Base Excess ABG Hemoglobin ABG Oxyhemoglobin ABG Sodium ABG Potassium ABG Glucose Oxyhemoglobin Sodium Potassium Chloride Carbon Dioxide BUN 29 H Creatinine Glucose 188 H POC Glucose 176 H Lactic Acid Phosphorus Magnesium Ferritin Lactate Dehydrogenase C-Reactive Protein NT-Pro-B Natriuret Pep Total Protein Albumin 3.3 L Triglycerides Arterial Blood Glucose Ur Specific [place] Coronavirus (PCR) 03/10/21 03/10/21 03/10/21 05:22 10:27 15:25 WBC RBC Hgb Hct MCV MCHC RDW Plt Count Lymph % (Auto) [place] % (Auto) [place] # (Auto) Seg Neutrophils % Seg Neuts % (Manual) Lymphocytes % (Manual) Monocytes % (Manual) Nucleated RBC % Seg Neutrophils # Seg Neutrophils # Man Lymphocytes # (Manual) Monocytes # (Manual) PT INR D-Dimer ABG pH 7.488 H 7.488 H POC ABG pCO2 POC ABG pO2 ABG pO2 47.7 L 50.5 L ABG HCO3 ABG O2 Saturation 86.2 L 87.9 L ABG Base Excess ABG Hemoglobin ABG Oxyhemoglobin ABG Sodium ABG Potassium ABG Glucose Oxyhemoglobin 84.6 L 86.2 L Sodium Potassium Chloride Carbon Dioxide BUN Creatinine Glucose POC Glucose 155 H Lactic Acid Phosphorus Magnesium Ferritin Lactate Dehydrogenase C-Reactive Protein NT-Pro-B Natriuret Pep Total Protein Albumin Triglycerides Arterial Blood Glucose Ur Specific [place] Coronavirus (PCR) 03/10/21 03/10/21 03/11/21 18:10 18:55 00:07 WBC RBC Hgb Hct MCV MCHC RDW Plt Count Lymph % (Auto) [place] % (Auto) [place] # (Auto) Seg Neutrophils % Seg Neuts % (Manual) Lymphocytes % (Manual) Monocytes % (Manual) Nucleated RBC % Seg Neutrophils # Seg Neutrophils # Man Lymphocytes # (Manual) Monocytes # (Manual) PT INR D-Dimer ABG pH 7.343 L POC ABG pCO2 POC ABG pO2 ABG pO2 60.4 L ABG HCO3 27.9 H ABG O2 Saturation 88.7 L ABG Base Excess ABG Hemoglobin ABG Oxyhemoglobin ABG Sodium ABG Potassium ABG Glucose Oxyhemoglobin 86.9 L Sodium Potassium Chloride Carbon Dioxide BUN Creatinine Glucose POC Glucose 187 H 139 H Lactic Acid Phosphorus Magnesium Ferritin Lactate Dehydrogenase C-Reactive Protein NT-Pro-B Natriuret Pep Total Protein Albumin Triglycerides Arterial Blood Glucose Ur Specific [place] Coronavirus (PCR) 03/11/21 03/11/21 03/11/21 02:09 04:28 08:06 WBC RBC Hgb Hct MCV MCHC RDW Plt Count Lymph % (Auto) [place] % (Auto) [place] # (Auto) Seg Neutrophils % Seg Neuts % (Manual) Lymphocytes % (Manual) Monocytes % (Manual) Nucleated RBC % Seg Neutrophils # Seg Neutrophils # Man Lymphocytes # (Manual) Monocytes # (Manual) PT INR D-Dimer ABG pH 7.277 L POC ABG pCO2 55.9 H POC ABG pO2 54.4 L ABG pO2 ABG HCO3 ABG O2 Saturation ABG Base Excess ABG Hemoglobin ABG Oxyhemoglobin 83.0 L ABG Sodium ABG Potassium 4.8 H ABG Glucose 180 H Oxyhemoglobin Sodium Potassium Chloride Carbon Dioxide BUN 38 H Creatinine Glucose 249 H POC Glucose 278 H Lactic Acid Phosphorus Magnesium Ferritin Lactate Dehydrogenase C-Reactive Protein NT-Pro-B Natriuret Pep Total Protein Albumin 3.2 L Triglycerides Arterial Blood Glucose 180 H Ur Specific [place] Coronavirus (PCR) 03/11/21 03/11/21 03/11/21 11:29 15:06 15:48 WBC RBC Hgb Hct MCV MCHC RDW Plt Count Lymph % (Auto) [place] % (Auto) [place] # (Auto) Seg Neutrophils % Seg Neuts % (Manual) Lymphocytes % (Manual) Monocytes % (Manual) Nucleated RBC % Seg Neutrophils # Seg Neutrophils # Man Lymphocytes # (Manual) Monocytes # (Manual) PT INR D-Dimer ABG pH 7.260 L POC ABG pCO2 POC ABG pO2 ABG pO2 53.5 L ABG HCO3 29.5 H ABG O2 Saturation 84.0 L ABG Base Excess ABG Hemoglobin ABG Oxyhemoglobin ABG Sodium ABG Potassium ABG Glucose Oxyhemoglobin 82.3 L Sodium Potassium Chloride Carbon Dioxide BUN Creatinine Glucose POC Glucose 288 H 295 H Lactic Acid Phosphorus Magnesium Ferritin Lactate Dehydrogenase C-Reactive Protein NT-Pro-B Natriuret Pep Total Protein Albumin Triglycerides Arterial Blood Glucose Ur Specific [place] Coronavirus (PCR) 03/12/21 03/12/21 03/12/21 00:01 05:24 08:03 WBC RBC Hgb Hct MCV MCHC RDW Plt Count Lymph % (Auto) [place] % (Auto) [place] # (Auto) Seg Neutrophils % Seg Neuts % (Manual) Lymphocytes % (Manual) Monocytes % (Manual) Nucleated RBC % Seg Neutrophils # Seg Neutrophils # Man Lymphocytes # (Manual) Monocytes # (Manual) PT INR D-Dimer ABG pH POC ABG pCO2 POC ABG pO2 ABG pO2 ABG HCO3 ABG O2 Saturation ABG Base Excess ABG Hemoglobin ABG Oxyhemoglobin ABG Sodium ABG Potassium ABG Glucose Oxyhemoglobin Sodium 135 L Potassium Chloride Carbon Dioxide BUN 48 H Creatinine Glucose 358 H POC Glucose 304 H 310 H Lactic Acid Phosphorus Magnesium Ferritin Lactate Dehydrogenase C-Reactive Protein NT-Pro-B Natriuret Pep Total Protein 6.0 L Albumin 2.9 L Triglycerides Arterial Blood Glucose Ur Specific [place] Coronavirus (PCR) 03/12/21 03/12/21 03/12/21 08:03 10:43 11:31 WBC 14.6 H RBC Hgb Hct MCV MCHC RDW Plt Count Lymph % (Auto) [place] % (Auto) [place] # (Auto) Seg Neutrophils % Seg Neuts % (Manual) Lymphocytes % (Manual) Monocytes % (Manual) Nucleated RBC % Seg Neutrophils # Seg Neutrophils # Man Lymphocytes # (Manual) Monocytes # (Manual) PT INR D-Dimer ABG pH 7.248 L POC ABG pCO2 POC ABG pO2 ABG pO2 73.7 L ABG HCO3 32.0 H ABG O2 Saturation 93.9 L ABG Base Excess ABG Hemoglobin ABG Oxyhemoglobin ABG Sodium ABG Potassium ABG Glucose Oxyhemoglobin 92.1 L Sodium Potassium Chloride Carbon Dioxide BUN Creatinine Glucose POC Glucose 359 H Lactic Acid Phosphorus Magnesium Ferritin Lactate Dehydrogenase C-Reactive Protein NT-Pro-B Natriuret Pep Total Protein Albumin Triglycerides Arterial Blood Glucose Ur Specific [place] Coronavirus (PCR) 03/12/21 03/12/21 03/13/21 17:20 21:54 00:02 WBC RBC Hgb Hct MCV MCHC RDW Plt Count Lymph % (Auto) [place] % (Auto) [place] # (Auto) Seg Neutrophils % Seg Neuts % (Manual) Lymphocytes % (Manual) Monocytes % (Manual) Nucleated RBC % Seg Neutrophils # Seg Neutrophils # Man Lymphocytes # (Manual) Monocytes # (Manual) PT INR D-Dimer ABG pH 7.238 L POC ABG pCO2 71.9 H POC ABG pO2 53.6 L ABG pO2 ABG HCO3 ABG O2 Saturation ABG Base Excess ABG Hemoglobin ABG Oxyhemoglobin 84.8 L ABG Sodium 134.2 L ABG Potassium 4.9 H ABG Glucose 306 H Oxyhemoglobin Sodium Potassium Chloride Carbon Dioxide BUN Creatinine Glucose POC Glucose 374 H 308 H Lactic Acid Phosphorus Magnesium Ferritin Lactate Dehydrogenase C-Reactive Protein NT-Pro-B Natriuret Pep Total Protein Albumin Triglycerides Arterial Blood Glucose 306 H Ur Specific [place] Coronavirus (PCR) 03/13/21 03/13/21 03/13/21 05:22 05:44 05:44 WBC 13.9 H RBC Hgb Hct MCV MCHC RDW Plt Count Lymph % (Auto) [place] % (Auto) [place] # (Auto) Seg Neutrophils % Seg Neuts % (Manual) Lymphocytes % (Manual) Monocytes % (Manual) Nucleated RBC % Seg Neutrophils # Seg Neutrophils # Man Lymphocytes # (Manual) Monocytes # (Manual) PT INR D-Dimer 3567.97 H ABG pH POC ABG pCO2 POC ABG pO2 ABG pO2 ABG HCO3 ABG O2 Saturation ABG Base Excess ABG Hemoglobin ABG Oxyhemoglobin ABG Sodium ABG Potassium ABG Glucose Oxyhemoglobin Sodium Potassium Chloride Carbon Dioxide BUN Creatinine Glucose POC Glucose 316 H Lactic Acid Phosphorus Magnesium Ferritin Lactate Dehydrogenase C-Reactive Protein NT-Pro-B Natriuret Pep Total Protein Albumin Triglycerides Arterial Blood Glucose Ur Specific [place] Coronavirus (PCR) 03/13/21 03/13/21 03/13/21 05:44 05:44 11:15 WBC RBC Hgb Hct MCV MCHC RDW Plt Count Lymph % (Auto) [place] % (Auto) [place] # (Auto) Seg Neutrophils % Seg Neuts % (Manual) Lymphocytes % (Manual) Monocytes % (Manual) Nucleated RBC % Seg Neutrophils # Seg Neutrophils # Man Lymphocytes # (Manual) Monocytes # (Manual) PT INR D-Dimer ABG pH 7.310 L POC ABG pCO2 POC ABG pO2 ABG pO2 52.3 L ABG HCO3 34.1 H ABG O2 Saturation 86.8 L ABG Base Excess 5.5 H ABG Hemoglobin 13.8 L ABG Oxyhemoglobin ABG Sodium ABG Potassium ABG Glucose Oxyhemoglobin 85.1 L Sodium Potassium Chloride Carbon Dioxide BUN Creatinine Glucose POC Glucose Lactic Acid Phosphorus Magnesium Ferritin 858.7 H Lactate Dehydrogenase 348 H C-Reactive Protein 2.80 H NT-Pro-B Natriuret Pep Total Protein Albumin Triglycerides Arterial Blood Glucose Ur Specific [place] Coronavirus (PCR) 03/13/21 03/13/21 03/13/21 11:21 15:47 19:23 WBC RBC Hgb Hct MCV MCHC RDW Plt Count Lymph % (Auto) [place] % (Auto) [place] # (Auto) Seg Neutrophils % Seg Neuts % (Manual) Lymphocytes % (Manual) Monocytes % (Manual) Nucleated RBC % Seg Neutrophils # Seg Neutrophils # Man Lymphocytes # (Manual) Monocytes # (Manual) PT INR D-Dimer ABG pH POC ABG pCO2 POC ABG pO2 ABG pO2 ABG HCO3 ABG O2 Saturation ABG Base Excess ABG Hemoglobin ABG Oxyhemoglobin ABG Sodium ABG Potassium ABG Glucose Oxyhemoglobin Sodium 136 L Potassium 5.9 H Chloride Carbon Dioxide BUN 50 H Creatinine Glucose 397 H POC Glucose 322 H 317 H Lactic Acid Phosphorus Magnesium Ferritin Lactate Dehydrogenase C-Reactive Protein NT-Pro-B Natriuret Pep Total Protein Albumin Triglycerides Arterial Blood Glucose Ur Specific [place] Coronavirus (PCR) 03/13/21 03/14/21 03/14/21 23:46 05:32 05:50 WBC 11.6 H RBC Hgb Hct MCV MCHC RDW Plt Count Lymph % (Auto) [place] % (Auto) [place] # (Auto) Seg Neutrophils % Seg Neuts % (Manual) Lymphocytes % (Manual) Monocytes % (Manual) Nucleated RBC % Seg Neutrophils # Seg Neutrophils # Man Lymphocytes # (Manual) Monocytes # (Manual) PT INR D-Dimer ABG pH POC ABG pCO2 POC ABG pO2 ABG pO2 ABG HCO3 ABG O2 Saturation ABG Base Excess ABG Hemoglobin ABG Oxyhemoglobin ABG Sodium ABG Potassium ABG Glucose Oxyhemoglobin Sodium Potassium Chloride Carbon Dioxide BUN Creatinine Glucose POC Glucose 332 H 316 H Lactic Acid Phosphorus Magnesium Ferritin Lactate Dehydrogenase C-Reactive Protein NT-Pro-B Natriuret Pep Total Protein Albumin Triglycerides Arterial Blood Glucose Ur Specific [place] Coronavirus (PCR) 03/14/21 03/14/21 03/14/21 05:50 11:33 16:53 WBC RBC Hgb Hct MCV MCHC RDW Plt Count Lymph % (Auto) [place] % (Auto) [place] # (Auto) Seg Neutrophils % Seg Neuts % (Manual) Lymphocytes % (Manual) Monocytes % (Manual) Nucleated RBC % Seg Neutrophils # Seg Neutrophils # Man Lymphocytes # (Manual) Monocytes # (Manual) PT INR D-Dimer ABG pH POC ABG pCO2 POC ABG pO2 ABG pO2 ABG HCO3 ABG O2 Saturation ABG Base Excess ABG Hemoglobin ABG Oxyhemoglobin ABG Sodium ABG Potassium ABG Glucose Oxyhemoglobin Sodium Potassium 5.9 H Chloride Carbon Dioxide 31 H BUN 48 H Creatinine Glucose 380 H POC Glucose 315 H 235 H Lactic Acid Phosphorus Magnesium 3.40 H Ferritin Lactate Dehydrogenase C-Reactive Protein NT-Pro-B Natriuret Pep Total Protein Albumin Triglycerides Arterial Blood Glucose Ur Specific [place] Coronavirus (PCR) 03/14/21 03/14/21 03/15/21 18:34 23:27 01:22 WBC RBC Hgb Hct 46.3 H MCV MCHC RDW Plt Count Lymph % (Auto) [place] % (Auto) [place] # (Auto) Seg Neutrophils % Seg Neuts % (Manual) Lymphocytes % (Manual) Monocytes % (Manual) Nucleated RBC % Seg Neutrophils # Seg Neutrophils # Man Lymphocytes # (Manual) Monocytes # (Manual) PT INR D-Dimer ABG pH POC ABG pCO2 POC ABG pO2 ABG pO2 ABG HCO3 ABG O2 Saturation ABG Base Excess ABG Hemoglobin ABG Oxyhemoglobin ABG Sodium ABG Potassium ABG Glucose Oxyhemoglobin Sodium 146 H Potassium Chloride Carbon Dioxide 34 H BUN 49 H Creatinine Glucose 285 H POC Glucose 203 H Lactic Acid Phosphorus Magnesium Ferritin Lactate Dehydrogenase C-Reactive Protein NT-Pro-B Natriuret Pep Total Protein Albumin Triglycerides Arterial Blood Glucose Ur Specific [place] Coronavirus (PCR) 03/15/21 03/15/21 03/15/21 04:00 06:06 06:06 WBC RBC Hgb Hct MCV MCHC RDW Plt Count Lymph % (Auto) [place] % (Auto) [place] # (Auto) Seg Neutrophils % Seg Neuts % (Manual) Lymphocytes % (Manual) Monocytes % (Manual) Nucleated RBC % Seg Neutrophils # Seg Neutrophils # Man Lymphocytes # (Manual) Monocytes # (Manual) PT INR D-Dimer 1781.79 H ABG pH POC ABG pCO2 POC ABG pO2 ABG pO2 ABG HCO3 ABG O2 Saturation ABG Base Excess ABG Hemoglobin ABG Oxyhemoglobin ABG Sodium ABG Potassium ABG Glucose Oxyhemoglobin Sodium 148 H Potassium 5.7 H D Chloride 108.0 H Carbon Dioxide 31 H BUN 46 H Creatinine Glucose 139 H POC Glucose Lactic Acid Phosphorus 4.80 H D Magnesium 3.00 H Ferritin 976.4 H Lactate Dehydrogenase 630 H C-Reactive Protein NT-Pro-B Natriuret Pep Total Protein Albumin Triglycerides Arterial Blood Glucose Ur Specific [place] Coronavirus (PCR) 03/15/21 03/15/21 03/15/21 11:56 14:05 17:09 WBC RBC Hgb Hct MCV MCHC RDW Plt Count Lymph % (Auto) [place] % (Auto) [place] # (Auto) Seg Neutrophils % Seg Neuts % (Manual) Lymphocytes % (Manual) Monocytes % (Manual) Nucleated RBC % Seg Neutrophils # Seg Neutrophils # Man Lymphocytes # (Manual) Monocytes # (Manual) PT INR D-Dimer ABG pH POC ABG pCO2 POC ABG pO2 ABG pO2 52.1 L ABG HCO3 36.6 H ABG O2 Saturation 87.6 L ABG Base Excess 9.5 H ABG Hemoglobin ABG Oxyhemoglobin ABG Sodium ABG Potassium ABG Glucose Oxyhemoglobin 85.7 L Sodium Potassium Chloride Carbon Dioxide BUN Creatinine Glucose POC Glucose 219 H 263 H Lactic Acid Phosphorus Magnesium Ferritin Lactate Dehydrogenase C-Reactive Protein NT-Pro-B Natriuret Pep Total Protein Albumin Triglycerides Arterial Blood Glucose Ur Specific [place] Coronavirus (PCR) 03/16/21 03/16/21 03/16/21 00:32 04:11 04:11 WBC 11.9 H RBC Hgb Hct MCV MCHC 30 L RDW Plt Count Lymph % (Auto) [place] % (Auto) [place] # (Auto) Seg Neutrophils % Seg Neuts % (Manual) Lymphocytes % (Manual) Monocytes % (Manual) Nucleated RBC % Seg Neutrophils # Seg Neutrophils # Man Lymphocytes # (Manual) Monocytes # (Manual) PT INR D-Dimer ABG pH POC ABG pCO2 POC ABG pO2 ABG pO2 ABG HCO3 ABG O2 Saturation ABG Base Excess ABG Hemoglobin ABG Oxyhemoglobin ABG Sodium ABG Potassium ABG Glucose Oxyhemoglobin Sodium 151 H Potassium Chloride Carbon Dioxide 35 H BUN 48 H Creatinine Glucose 152 H POC Glucose 165 H Lactic Acid Phosphorus Magnesium Ferritin Lactate Dehydrogenase C-Reactive Protein NT-Pro-B Natriuret Pep Total Protein Albumin Triglycerides Arterial Blood Glucose Ur Specific [place] Coronavirus (PCR) 03/16/21 03/16/21 03/16/21 04:11 05:26 11:35 WBC RBC Hgb Hct MCV MCHC RDW Plt Count Lymph % (Auto) [place] % (Auto) [place] # (Auto) Seg Neutrophils % Seg Neuts % (Manual) Lymphocytes % (Manual) Monocytes % (Manual) Nucleated RBC % Seg Neutrophils # Seg Neutrophils # Man Lymphocytes # (Manual) Monocytes # (Manual) PT INR D-Dimer ABG pH POC ABG pCO2 POC ABG pO2 ABG pO2 ABG HCO3 ABG O2 Saturation ABG Base Excess ABG Hemoglobin ABG Oxyhemoglobin ABG Sodium ABG Potassium ABG Glucose Oxyhemoglobin Sodium Potassium Chloride Carbon Dioxide BUN Creatinine Glucose POC Glucose 162 H 187 H Lactic Acid Phosphorus Magnesium Ferritin Lactate Dehydrogenase C-Reactive Protein NT-Pro-B Natriuret Pep Total Protein Albumin Triglycerides 267 H Arterial Blood Glucose Ur Specific [place] Coronavirus (PCR) 03/16/21 03/16/21 03/16/21 17:29 22:25 23:22 WBC RBC Hgb Hct MCV MCHC RDW Plt Count Lymph % (Auto) [place] % (Auto) [place] # (Auto) Seg Neutrophils % Seg Neuts % (Manual) Lymphocytes % (Manual) Monocytes % (Manual) Nucleated RBC % Seg Neutrophils # Seg Neutrophils # Man Lymphocytes # (Manual) Monocytes # (Manual) PT INR D-Dimer ABG pH POC ABG pCO2 POC ABG pO2 ABG pO2 ABG HCO3 ABG O2 Saturation ABG Base Excess ABG Hemoglobin ABG Oxyhemoglobin ABG Sodium ABG Potassium ABG Glucose Oxyhemoglobin Sodium Potassium Chloride Carbon Dioxide BUN Creatinine Glucose POC Glucose 237 H 165 H 189 H Lactic Acid Phosphorus Magnesium Ferritin Lactate Dehydrogenase C-Reactive Protein NT-Pro-B Natriuret Pep Total Protein Albumin Triglycerides Arterial Blood Glucose Ur Specific [place] Coronavirus (PCR) 03/17/21 03/17/21 03/17/21 04:40 04:40 04:40 WBC 14.1 H RBC Hgb Hct MCV MCHC RDW 15.3 H Plt Count Lymph % (Auto) 12.6 L [place] % (Auto) 11.3 H [place] # (Auto) 1.6 H Seg Neutrophils % 74.9 H Seg Neuts % (Manual) Lymphocytes % (Manual) Monocytes % (Manual) Nucleated RBC % Seg Neutrophils # 10.5 H Seg Neutrophils # Man Lymphocytes # (Manual) Monocytes # (Manual) PT INR D-Dimer 1359.12 H ABG pH POC ABG pCO2 POC ABG pO2 ABG pO2 ABG HCO3 ABG O2 Saturation ABG Base Excess ABG Hemoglobin ABG Oxyhemoglobin ABG Sodium ABG Potassium ABG Glucose Oxyhemoglobin Sodium 148 H Potassium Chloride 107.5 H Carbon Dioxide 33 H BUN 42 H Creatinine Glucose 183 H POC Glucose Lactic Acid Phosphorus Magnesium 2.70 H Ferritin Lactate Dehydrogenase C-Reactive Protein NT-Pro-B Natriuret Pep Total Protein Albumin Triglycerides Arterial Blood Glucose Ur Specific [place] Coronavirus (PCR) 03/17/21 03/17/21 03/17/21 05:53 11:05 11:51 WBC RBC Hgb Hct MCV MCHC RDW Plt Count Lymph % (Auto) [place] % (Auto) [place] # (Auto) Seg Neutrophils % Seg Neuts % (Manual) Lymphocytes % (Manual) Monocytes % (Manual) Nucleated RBC % Seg Neutrophils # Seg Neutrophils # Man Lymphocytes # (Manual) Monocytes # (Manual) PT INR D-Dimer ABG pH POC ABG pCO2 POC ABG pO2 ABG pO2 ABG HCO3 35.7 H ABG O2 Saturation ABG Base Excess 8.7 H ABG Hemoglobin ABG Oxyhemoglobin ABG Sodium ABG Potassium ABG Glucose Oxyhemoglobin 94.2 L Sodium Potassium Chloride Carbon Dioxide BUN Creatinine Glucose POC Glucose 176 H 197 H Lactic Acid Phosphorus Magnesium Ferritin Lactate Dehydrogenase C-Reactive Protein NT-Pro-B Natriuret Pep Total Protein Albumin Triglycerides Arterial Blood Glucose Ur Specific [place] Coronavirus (PCR) 03/17/21 03/17/21 03/17/21 16:54 21:10 23:33 WBC RBC Hgb Hct MCV MCHC RDW Plt Count Lymph % (Auto) [place] % (Auto) [place] # (Auto) Seg Neutrophils % Seg Neuts % (Manual) Lymphocytes % (Manual) Monocytes % (Manual) Nucleated RBC % Seg Neutrophils # Seg Neutrophils # Man Lymphocytes # (Manual) Monocytes # (Manual) PT INR D-Dimer ABG pH POC ABG pCO2 POC ABG pO2 ABG pO2 ABG HCO3 ABG O2 Saturation ABG Base Excess ABG Hemoglobin ABG Oxyhemoglobin ABG Sodium ABG Potassium ABG Glucose Oxyhemoglobin Sodium Potassium Chloride Carbon Dioxide BUN Creatinine Glucose POC Glucose 135 H 160 H 138 H Lactic Acid Phosphorus Magnesium Ferritin Lactate Dehydrogenase C-Reactive Protein NT-Pro-B Natriuret Pep Total Protein Albumin Triglycerides Arterial Blood Glucose Ur Specific [place] Coronavirus (PCR) 03/18/21 03/18/21 03/18/21 04:18 04:50 05:43 WBC RBC Hgb Hct MCV MCHC RDW Plt Count Lymph % (Auto) [place] % (Auto) [place] # (Auto) Seg Neutrophils % Seg Neuts % (Manual) Lymphocytes % (Manual) Monocytes % (Manual) Nucleated RBC % Seg Neutrophils # Seg Neutrophils # Man Lymphocytes # (Manual) Monocytes # (Manual) PT INR D-Dimer ABG pH POC ABG pCO2 POC ABG pO2 ABG pO2 59.8 L ABG HCO3 36.5 H ABG O2 Saturation 90.7 L ABG Base Excess 9.4 H ABG Hemoglobin 12.0 L ABG Oxyhemoglobin ABG Sodium ABG Potassium ABG Glucose Oxyhemoglobin 88.9 L Sodium Potassium Chloride 107.2 H Carbon Dioxide 34 H BUN 38 H Creatinine 0.7 L Glucose 136 H POC Glucose 128 H Lactic Acid Phosphorus Magnesium Ferritin Lactate Dehydrogenase C-Reactive Protein NT-Pro-B Natriuret Pep Total Protein Albumin Triglycerides Arterial Blood Glucose Ur Specific [place] Coronavirus (PCR) 03/18/21 03/18/21 03/18/21 11:20 17:35 23:35 WBC RBC Hgb Hct MCV MCHC RDW Plt Count Lymph % (Auto) [place] % (Auto) [place] # (Auto) Seg Neutrophils % Seg Neuts % (Manual) Lymphocytes % (Manual) Monocytes % (Manual) Nucleated RBC % Seg Neutrophils # Seg Neutrophils # Man Lymphocytes # (Manual) Monocytes # (Manual) PT INR D-Dimer ABG pH POC ABG pCO2 POC ABG pO2 ABG pO2 70.7 L ABG HCO3 33.6 H ABG O2 Saturation ABG Base Excess 8.0 H ABG Hemoglobin ABG Oxyhemoglobin ABG Sodium ABG Potassium ABG Glucose Oxyhemoglobin 93.7 L Sodium Potassium Chloride Carbon Dioxide BUN Creatinine Glucose POC Glucose 189 H 144 H Lactic Acid Phosphorus Magnesium Ferritin Lactate Dehydrogenase C-Reactive Protein NT-Pro-B Natriuret Pep Total Protein Albumin Triglycerides Arterial Blood Glucose Ur Specific [place] Coronavirus (PCR) 03/19/21 03/19/21 03/19/21 02:35 04:20 04:20 WBC 14.0 H RBC Hgb Hct MCV MCHC RDW Plt Count Lymph % (Auto) [place] % (Auto) [place] # (Auto) Seg Neutrophils % Seg Neuts % (Manual) Lymphocytes % (Manual) Monocytes % (Manual) Nucleated RBC % Seg Neutrophils # Seg Neutrophils # Man Lymphocytes # (Manual) Monocytes # (Manual) PT INR D-Dimer ABG pH POC ABG pCO2 POC ABG pO2 ABG pO2 ABG HCO3 32.0 H ABG O2 Saturation ABG Base Excess 5.2 H ABG Hemoglobin 13.6 L ABG Oxyhemoglobin ABG Sodium ABG Potassium ABG Glucose Oxyhemoglobin 94.6 L Sodium 146 H Potassium Chloride 109.3 H Carbon Dioxide BUN 36 H Creatinine Glucose 203 H POC Glucose Lactic Acid Phosphorus Magnesium Ferritin Lactate Dehydrogenase C-Reactive Protein NT-Pro-B Natriuret Pep Total Protein Albumin Triglycerides 254 H Arterial Blood Glucose Ur Specific [place] Coronavirus (PCR) 03/19/21 03/19/21 03/19/21 05:45 11:36 23:51 WBC RBC Hgb Hct MCV MCHC RDW Plt Count Lymph % (Auto) [place] % (Auto) [place] # (Auto) Seg Neutrophils % Seg Neuts % (Manual) Lymphocytes % (Manual) Monocytes % (Manual) Nucleated RBC % Seg Neutrophils # Seg Neutrophils # Man Lymphocytes # (Manual) Monocytes # (Manual) PT INR D-Dimer ABG pH POC ABG pCO2 POC ABG pO2 ABG pO2 ABG HCO3 ABG O2 Saturation ABG Base Excess ABG Hemoglobin ABG Oxyhemoglobin ABG Sodium ABG Potassium ABG Glucose Oxyhemoglobin Sodium Potassium Chloride Carbon Dioxide BUN Creatinine Glucose POC Glucose 164 H 172 H 140 H Lactic Acid Phosphorus Magnesium Ferritin Lactate Dehydrogenase C-Reactive Protein NT-Pro-B Natriuret Pep Total Protein Albumin Triglycerides Arterial Blood Glucose Ur Specific [place] Coronavirus (PCR) 03/20/21 03/20/21 03/20/21 03:29 04:45 04:45 WBC RBC Hgb Hct MCV 95 H MCHC RDW 15.7 H Plt Count Lymph % (Auto) [place] % (Auto) [place] # (Auto) Seg Neutrophils % Seg Neuts % (Manual) Lymphocytes % (Manual) Monocytes % (Manual) Nucleated RBC % Seg Neutrophils # Seg Neutrophils # Man Lymphocytes # (Manual) Monocytes # (Manual) PT INR D-Dimer ABG pH 7.349 L POC ABG pCO2 POC ABG pO2 ABG pO2 ABG HCO3 33.7 H ABG O2 Saturation ABG Base Excess 6.4 H ABG Hemoglobin 11.8 L ABG Oxyhemoglobin ABG Sodium ABG Potassium ABG Glucose Oxyhemoglobin 93.9 L Sodium 146 H Potassium 5.5 H Chloride 111.1 H Carbon Dioxide BUN 34 H Creatinine 0.7 L Glucose 145 H POC Glucose Lactic Acid Phosphorus Magnesium 2.50 H Ferritin Lactate Dehydrogenase C-Reactive Protein NT-Pro-B Natriuret Pep Total Protein Albumin Triglycerides Arterial Blood Glucose Ur Specific [place] Coronavirus (PCR) 03/20/21 03/20/21 03/20/21 05:41 09:08 11:54 WBC RBC Hgb Hct MCV MCHC RDW Plt Count Lymph % (Auto) [place] % (Auto) [place] # (Auto) Seg Neutrophils % Seg Neuts % (Manual) Lymphocytes % (Manual) Monocytes % (Manual) Nucleated RBC % Seg Neutrophils # Seg Neutrophils # Man Lymphocytes # (Manual) Monocytes # (Manual) PT INR D-Dimer ABG pH POC ABG pCO2 POC ABG pO2 ABG pO2 ABG HCO3 ABG O2 Saturation ABG Base Excess ABG Hemoglobin ABG Oxyhemoglobin ABG Sodium ABG Potassium ABG Glucose Oxyhemoglobin Sodium Potassium Chloride Carbon Dioxide BUN Creatinine Glucose POC Glucose 108 H 132 H 162 H Lactic Acid Phosphorus Magnesium Ferritin Lactate Dehydrogenase C-Reactive Protein NT-Pro-B Natriuret Pep Total Protein Albumin Triglycerides Arterial Blood Glucose Ur Specific [place] Coronavirus (PCR) 03/20/21 03/21/21 03/21/21 17:28 00:31 04:44 WBC RBC Hgb Hct MCV MCHC RDW Plt Count Lymph % (Auto) [place] % (Auto) [place] # (Auto) Seg Neutrophils % Seg Neuts % (Manual) Lymphocytes % (Manual) Monocytes % (Manual) Nucleated RBC % Seg Neutrophils # Seg Neutrophils # Man Lymphocytes # (Manual) Monocytes # (Manual) PT INR D-Dimer ABG pH POC ABG pCO2 POC ABG pO2 ABG pO2 ABG HCO3 ABG O2 Saturation ABG Base Excess ABG Hemoglobin ABG Oxyhemoglobin ABG Sodium ABG Potassium ABG Glucose Oxyhemoglobin Sodium Potassium Chloride 108.3 H Carbon Dioxide BUN 30 H Creatinine 0.7 L Glucose POC Glucose 160 H 122 H Lactic Acid Phosphorus Magnesium Ferritin Lactate Dehydrogenase C-Reactive Protein NT-Pro-B Natriuret Pep Total Protein Albumin Triglycerides Arterial Blood Glucose Ur Specific [place] Coronavirus (PCR) 03/21/21 03/21/21 03/21/21 09:18 10:09 13:20 WBC RBC Hgb Hct MCV MCHC RDW Plt Count Lymph % (Auto) [place] % (Auto) [place] # (Auto) Seg Neutrophils % Seg Neuts % (Manual) Lymphocytes % (Manual) Monocytes % (Manual) Nucleated RBC % Seg Neutrophils # Seg Neutrophils # Man Lymphocytes # (Manual) Monocytes # (Manual) PT INR D-Dimer ABG pH POC ABG pCO2 POC ABG pO2 ABG pO2 60.7 L ABG HCO3 30.6 H ABG O2 Saturation 93.6 L ABG Base Excess 5.3 H ABG Hemoglobin ABG Oxyhemoglobin ABG Sodium ABG Potassium ABG Glucose Oxyhemoglobin 91.7 L Sodium Potassium Chloride Carbon Dioxide BUN Creatinine Glucose POC Glucose 169 H 122 H Lactic Acid Phosphorus Magnesium Ferritin Lactate Dehydrogenase C-Reactive Protein NT-Pro-B Natriuret Pep Total Protein Albumin Triglycerides Arterial Blood Glucose Ur Specific [place] Coronavirus (PCR) 03/21/21 03/21/21 03/21/21 17:25 22:41 23:52 WBC RBC Hgb Hct MCV MCHC RDW Plt Count Lymph % (Auto) [place] % (Auto) [place] # (Auto) Seg Neutrophils % Seg Neuts % (Manual) Lymphocytes % (Manual) Monocytes % (Manual) Nucleated RBC % Seg Neutrophils # Seg Neutrophils # Man Lymphocytes # (Manual) Monocytes # (Manual) PT INR D-Dimer ABG pH POC ABG pCO2 POC ABG pO2 ABG pO2 ABG HCO3 ABG O2 Saturation ABG Base Excess ABG Hemoglobin ABG Oxyhemoglobin ABG Sodium ABG Potassium ABG Glucose Oxyhemoglobin Sodium Potassium Chloride Carbon Dioxide BUN Creatinine Glucose POC Glucose 121 H 139 H 140 H Lactic Acid Phosphorus Magnesium Ferritin Lactate Dehydrogenase C-Reactive Protein NT-Pro-B Natriuret Pep Total Protein Albumin Triglycerides Arterial Blood Glucose Ur Specific [place] Coronavirus (PCR) 03/22/21 03/22/21 03/22/21 05:58 07:26 07:26 WBC RBC Hgb Hct MCV MCHC 31 L RDW 16.1 H Plt Count Lymph % (Auto) [place] % (Auto) [place] # (Auto) Seg Neutrophils % Seg Neuts % (Manual) Lymphocytes % (Manual) Monocytes % (Manual) Nucleated RBC % Seg Neutrophils # Seg Neutrophils # Man Lymphocytes # (Manual) Monocytes # (Manual) PT INR D-Dimer ABG pH POC ABG pCO2 POC ABG pO2 ABG pO2 ABG HCO3 ABG O2 Saturation ABG Base Excess ABG Hemoglobin ABG Oxyhemoglobin ABG Sodium ABG Potassium ABG Glucose Oxyhemoglobin Sodium Potassium Chloride 108.5 H Carbon Dioxide BUN 44 H Creatinine Glucose 120 H POC Glucose 131 H Lactic Acid Phosphorus 5.80 H Magnesium 2.80 H Ferritin Lactate Dehydrogenase C-Reactive Protein NT-Pro-B Natriuret Pep Total Protein Albumin Triglycerides 305 H Arterial Blood Glucose Ur Specific [place] Coronavirus (PCR) 03/22/21 03/22/21 03/22/21 09:38 11:15 16:01 WBC RBC Hgb Hct MCV MCHC RDW Plt Count Lymph % (Auto) [place] % (Auto) [place] # (Auto) Seg Neutrophils % Seg Neuts % (Manual) Lymphocytes % (Manual) Monocytes % (Manual) Nucleated RBC % Seg Neutrophils # Seg Neutrophils # Man Lymphocytes # (Manual) Monocytes # (Manual) PT INR D-Dimer ABG pH POC ABG pCO2 POC ABG pO2 ABG pO2 70.0 L ABG HCO3 30.0 H ABG O2 Saturation 94.6 L ABG Base Excess 3.6 H ABG Hemoglobin 13.5 L ABG Oxyhemoglobin ABG Sodium ABG Potassium ABG Glucose Oxyhemoglobin 92.5 L Sodium Potassium Chloride Carbon Dioxide BUN Creatinine Glucose POC Glucose 186 H 148 H Lactic Acid Phosphorus Magnesium Ferritin Lactate Dehydrogenase C-Reactive Protein NT-Pro-B Natriuret Pep Total Protein Albumin Triglycerides Arterial Blood Glucose Ur Specific [place] Coronavirus (PCR) 03/22/21 03/22/21 03/23/21 21:13 23:48 07:04 WBC 11.7 H RBC Hgb Hct MCV 95 H MCHC RDW 16.1 H Plt Count Lymph % (Auto) [place] % (Auto) [place] # (Auto) Seg Neutrophils % Seg Neuts % (Manual) Lymphocytes % (Manual) Monocytes % (Manual) Nucleated RBC % Seg Neutrophils # Seg Neutrophils # Man Lymphocytes # (Manual) Monocytes # (Manual) PT INR D-Dimer ABG pH POC ABG pCO2 POC ABG pO2 ABG pO2 ABG HCO3 ABG O2 Saturation ABG Base Excess ABG Hemoglobin ABG Oxyhemoglobin ABG Sodium ABG Potassium ABG Glucose Oxyhemoglobin Sodium Potassium Chloride Carbon Dioxide BUN Creatinine Glucose POC Glucose 121 H 114 H Lactic Acid Phosphorus Magnesium Ferritin Lactate Dehydrogenase C-Reactive Protein NT-Pro-B Natriuret Pep Total Protein Albumin Triglycerides Arterial Blood Glucose Ur Specific [place] Coronavirus (PCR) 03/23/21 03/23/21 03/23/21 07:04 08:35 11:19 WBC RBC Hgb Hct MCV MCHC RDW Plt Count Lymph % (Auto) [place] % (Auto) [place] # (Auto) Seg Neutrophils % Seg Neuts % (Manual) Lymphocytes % (Manual) Monocytes % (Manual) Nucleated RBC % Seg Neutrophils # Seg Neutrophils # Man Lymphocytes # (Manual) Monocytes # (Manual) PT INR D-Dimer ABG pH 7.345 L POC ABG pCO2 POC ABG pO2 ABG pO2 167.9 H ABG HCO3 32.2 H ABG O2 Saturation ABG Base Excess 4.8 H ABG Hemoglobin 13.4 L ABG Oxyhemoglobin ABG Sodium ABG Potassium ABG Glucose Oxyhemoglobin Sodium 148 H Potassium Chloride 111.3 H Carbon Dioxide 31 H BUN 31 H Creatinine Glucose 131 H POC Glucose 165 H Lactic Acid Phosphorus Magnesium 2.50 H Ferritin Lactate Dehydrogenase C-Reactive Protein NT-Pro-B Natriuret Pep Total Protein Albumin Triglycerides Arterial Blood Glucose Ur Specific [place] Coronavirus (PCR) 03/23/21 03/23/21 03/24/21 16:48 20:52 00:07 WBC RBC Hgb Hct MCV MCHC RDW Plt Count Lymph % (Auto) [place] % (Auto) [place] # (Auto) Seg Neutrophils % Seg Neuts % (Manual) Lymphocytes % (Manual) Monocytes % (Manual) Nucleated RBC % Seg Neutrophils # Seg Neutrophils # Man Lymphocytes # (Manual) Monocytes # (Manual) PT INR D-Dimer ABG pH POC ABG pCO2 POC ABG pO2 ABG pO2 ABG HCO3 ABG O2 Saturation ABG Base Excess ABG Hemoglobin ABG Oxyhemoglobin ABG Sodium ABG Potassium ABG Glucose Oxyhemoglobin Sodium Potassium Chloride Carbon Dioxide BUN Creatinine Glucose POC Glucose 160 H 127 H 147 H Lactic Acid Phosphorus Magnesium Ferritin Lactate Dehydrogenase C-Reactive Protein NT-Pro-B Natriuret Pep Total Protein Albumin Triglycerides Arterial Blood Glucose Ur Specific [place] Coronavirus (PCR) 03/24/21 03/24/21 03/24/21 04:34 04:34 05:20 WBC 13.3 H RBC Hgb Hct MCV MCHC 31 L RDW 16.1 H Plt Count Lymph % (Auto) [place] % (Auto) [place] # (Auto) Seg Neutrophils % Seg Neuts % (Manual) Lymphocytes % (Manual) Monocytes % (Manual) Nucleated RBC % Seg Neutrophils # Seg Neutrophils # Man Lymphocytes # (Manual) Monocytes # (Manual) PT INR D-Dimer ABG pH POC ABG pCO2 POC ABG pO2 ABG pO2 ABG HCO3 ABG O2 Saturation ABG Base Excess ABG Hemoglobin ABG Oxyhemoglobin ABG Sodium ABG Potassium ABG Glucose Oxyhemoglobin Sodium Potassium 5.2 H Chloride Carbon Dioxide BUN 28 H Creatinine 0.7 L Glucose 152 H POC Glucose 141 H Lactic Acid Phosphorus Magnesium Ferritin Lactate Dehydrogenase C-Reactive Protein NT-Pro-B Natriuret Pep Total Protein Albumin Triglycerides Arterial Blood Glucose Ur Specific [place] Coronavirus (PCR) 03/24/21 03/24/21 03/24/21 09:40 11:38 16:45 WBC RBC Hgb Hct MCV MCHC RDW Plt Count Lymph % (Auto) [place] % (Auto) [place] # (Auto) Seg Neutrophils % Seg Neuts % (Manual) Lymphocytes % (Manual) Monocytes % (Manual) Nucleated RBC % Seg Neutrophils # Seg Neutrophils # Man Lymphocytes # (Manual) Monocytes # (Manual) PT INR D-Dimer ABG pH POC ABG pCO2 POC ABG pO2 ABG pO2 ABG HCO3 ABG O2 Saturation ABG Base Excess ABG Hemoglobin ABG Oxyhemoglobin ABG Sodium ABG Potassium ABG Glucose Oxyhemoglobin Sodium Potassium Chloride Carbon Dioxide BUN Creatinine Glucose POC Glucose 126 H 136 H 118 H Lactic Acid Phosphorus Magnesium Ferritin Lactate Dehydrogenase C-Reactive Protein NT-Pro-B Natriuret Pep Total Protein Albumin Triglycerides Arterial Blood Glucose Ur Specific [place] Coronavirus (PCR) 03/24/21 03/24/21 03/25/21 21:03 23:49 04:32 WBC RBC Hgb Hct MCV MCHC RDW 16.1 H Plt Count 121 L Lymph % (Auto) [place] % (Auto) [place] # (Auto) Seg Neutrophils % Seg Neuts % (Manual) Lymphocytes % (Manual) Monocytes % (Manual) Nucleated RBC % Seg Neutrophils # Seg Neutrophils # Man Lymphocytes # (Manual) Monocytes # (Manual) PT INR D-Dimer ABG pH POC ABG pCO2 POC ABG pO2 ABG pO2 ABG HCO3 ABG O2 Saturation ABG Base Excess ABG Hemoglobin ABG Oxyhemoglobin ABG Sodium ABG Potassium ABG Glucose Oxyhemoglobin Sodium Potassium Chloride Carbon Dioxide BUN Creatinine Glucose POC Glucose 116 H 125 H Lactic Acid Phosphorus Magnesium Ferritin Lactate Dehydrogenase C-Reactive Protein NT-Pro-B Natriuret Pep Total Protein Albumin Triglycerides Arterial Blood Glucose Ur Specific [place] Coronavirus (PCR) 03/25/21 03/25/21 03/25/21 04:32 05:21 09:29 WBC RBC Hgb Hct MCV MCHC RDW Plt Count Lymph % (Auto) [place] % (Auto) [place] # (Auto) Seg Neutrophils % Seg Neuts % (Manual) Lymphocytes % (Manual) Monocytes % (Manual) Nucleated RBC % Seg Neutrophils # Seg Neutrophils # Man Lymphocytes # (Manual) Monocytes # (Manual) PT INR D-Dimer ABG pH POC ABG pCO2 POC ABG pO2 ABG pO2 ABG HCO3 ABG O2 Saturation ABG Base Excess ABG Hemoglobin ABG Oxyhemoglobin ABG Sodium ABG Potassium ABG Glucose Oxyhemoglobin Sodium 135 L D Potassium Chloride Carbon Dioxide BUN 25 H Creatinine 0.7 L Glucose 168 H POC Glucose 149 H 115 H Lactic Acid Phosphorus Magnesium Ferritin Lactate Dehydrogenase C-Reactive Protein NT-Pro-B Natriuret Pep Total Protein Albumin Triglycerides Arterial Blood Glucose Ur Specific [place] Coronavirus (PCR) 03/25/21 03/25/21 12:26 12:35 WBC RBC Hgb Hct MCV MCHC RDW Plt Count Lymph % (Auto) [place] % (Auto) [place] # (Auto) Seg Neutrophils % Seg Neuts % (Manual) Lymphocytes % (Manual) Monocytes % (Manual) Nucleated RBC % Seg Neutrophils # Seg Neutrophils # Man Lymphocytes # (Manual) Monocytes # (Manual) PT INR D-Dimer ABG pH POC ABG pCO2 POC ABG pO2 ABG pO2 100.5 H ABG HCO3 33.6 H ABG O2 Saturation ABG Base Excess 6.4 H ABG Hemoglobin 12.0 L ABG Oxyhemoglobin ABG Sodium ABG Potassium ABG Glucose Oxyhemoglobin Sodium Potassium Chloride Carbon Dioxide BUN Creatinine Glucose POC Glucose 108 H Lactic Acid Phosphorus Magnesium Ferritin Lactate Dehydrogenase C-Reactive Protein NT-Pro-B Natriuret Pep Total Protein Albumin Triglycerides Arterial Blood Glucose Ur Specific [place] Coronavirus (PCR) Chest x-ray: pending Allied health notes reviewed: nursing
[2021-03-26] MEDS: INSULIN LISPRO 100 UNIT/ML SUB-Q SCH ×5 (00:07→23:57)
[2021-03-26] MEDS: chlordiazePOXIDE 25 MG CAP PO SCH ×4 (00:16→17:26)
[2021-03-26] MEDS: fentaNYL DRIP Premix 2,000 MCG/100 ML BAG IV SCH ×3 (00:27→17:26)
[2021-03-26] MEDS: hydrALAZINE 25 MG TAB PO SCH ×3 (05:24→21:04)
[2021-03-26 08:14] LABS: Blood Urea Nitrogen 22 mg/dL (9-20); Calcium 8.8 mg/dL (8.4-10.2); Hemolysis Index 17
[2021-03-26 08:15] LABS: BUN/Creatinine Ratio 31
[2021-03-26 08:25] LABS: Hematocrit 38.3 % (35.5-45.6); Hemoglobin 12.1 gm/dl (11.8-15.2); Mean Corpuscular HGB Conc 32 % (32-34); Mean Corpuscular Volume 94 fl (84-94); Platelet Count 139 K/mm3 (140-440); Red Blood Count 4.06 M/mm3 (3.65-5.03); Red Cell Distribution Width 16.5 % (13.2-15.2)
[2021-03-26] MEDS: BUDESONIDE 0.25 MG/2 ML NEBU IH SCH (08:46)
[2021-03-26] MEDS: ARFORMOTEROL 15 MCG/2 ML NEBU IH SCH (08:46)
[2021-03-26] MEDS: methylPREDNISolone Sod Succinate 40 MG/1 ML INJ IV SCH (09:57)
[2021-03-26] MEDS: SULFAMETHOXAZOLE/TRIMETHOPRIM 800/160MG DS TAB PO SCH ×2 (09:57→21:04)
[2021-03-26] MEDS: FAMOTIDINE 20 MG TAB FEEDTUBE SCH ×2 (09:57→21:05)
[2021-03-26] MEDS: DOXAZOSIN 1 MG TAB PO SCH (09:57)
[2021-03-26] MEDS: ZINC SULFATE 220 MG CAP PO SCH ×2 (09:57→21:05)
[2021-03-26] MEDS: SENNOSIDES/DOCUSATE SODIUM 8.6/50 MG TAB FEEDTUBE SCH ×2 (09:57→21:05)
[2021-03-26] MEDS: ENOXAPARIN 60 MG/0.6 ML INJ SUB-Q SCH (09:57)
[2021-03-26] MEDS: ASCORBIC ACID 500 MG TAB PO SCH ×2 (09:57→21:05)
[2021-03-26] MEDS: QUEtiapine 100 MG TAB PO SCH ×2 (09:57→21:05)
[2021-03-26] MEDS: METOPROLOL TARTRATE 25 MG TAB PO SCH ×2 (09:58→21:04)
[2021-03-26] MEDS: INSULIN GLARGINE 100 UNITS/ML SUB-Q SCH ×2 (09:58→22:23)
--- NOTE | 2021-03-26 12:54 | Progress Note ---
<FLORIANMARISABEL TrishLester - Last Filed: 03/26/21 12:49> Assessment and Plan Assessment and plan: This is a 61-year-old man with HTN and DM admitted with COVID-19 pneumonia, acute hypoxic respiratory failure, sepsis Severe sepsis (POA), COVID 19 PNA, Stenotrophomonas Maltophillia in trachial aspirate -Infectious disease consulted, appreciate recommendation -S/p Actemra 03/10/2021 -IV remdesivir for 5 days -Solumederol 60mg q 8 -weaning started -Prophylactic anticoagulation per hospital protocol -Droplet/isolation precautions -Monitor WBC and temperature curve -03/08 blood culture x2 with no growth to date and tracheal aspirate GNR -Speciated to Stenotrophomonas Maltophillia -Bactrim Acute hypoxic respiratory failure -CCM consulted, appreciate recommendations -CT chest shows severe patchy multifocal ground glass airspace disease -Intubated on 03/10 with a 7.50 ETT at 20 for the lips -A.m. vent settings: Assist control tidal volume 450, rate 12, PEEP 8, FiO2 50% -See RT notes for titration -Pt on CPAP trial -A.m. ABG noted -VAP bundle -SPO2 monitoring -Albuterol as needed, Brovana and Pulmicort -Surgery consulted for trach/PEG -CCM plans to pressure support trial patient for 2 to 3 hours/day Acute Metabolic Encephalopathy -Avoid delirium -Reorientation as needed -Sedated with propofol and fentanyl -Seroquel, Librium -RASS goal -1 to -2 -As needed analgesia -Maintain sleep-wake cycle -Bilateral restraints in place for safety -SAT and SBT when appropriate -BSM Qtc monitoring Superficial thrombus in left gastrocnemius vein -Bilateral lower extremity ultrasound negative for DVT, superficial thrombus in left gastrocnemius vein -repeat BLE Doppler US show superficial thrombus -CTA chest shows no gross pulm embolism -Trend CBC -SCDs to BLE while in bed -Transfuse hemoglobin less than 7 -Lovenox prophylactic dosing -Monitor for signs of bleeding h/o HTN -Blood pressure monitoring per protocol -Cardiology consulted, appreciate recommendations -Echocardiogram shows a mildly dilated ascending aorta, normal LV systolic function, mild concentric LVH, LVEF 60 to 65% -Hydralazine and metoprolol, titrate as needed Obesity -24 hours +1660 mL -PPI -NTR consulted for tube feedings -BR: Senokot -BMS removed due to external hemorrhoids (as needed Preparation H) -BM 03/20 -will give suppository today, ordered as needed suppositories Endo: h/o DM -Avoid hypoglycemia -SSI, lantus->increase as needed -Accu-Cheks q. 6 The high probability of a clinically significant, sudden or life threatening deterioration of the [multi] system(s) required my full and direct attention, intervention and personal management. The aggregate critical care time was [60] minutes. This time is in addition to time spent performing reported procedures but includes the following: [x] Data Review and interpretation [x] Patient assessment and monitoring of vital signs [x] Documentation [x] Medication orders and management Disposition Plan: icu Total Time Spent with Patient (Minutes): 60 History Interval history: This is a 61-year-old male with HTN and DM who presented to the emergency department on 03/09 with shortness of breath and hypoxia via EMS. Patient had apparently been feeling ill for proxy 1 week prior to mentation. Upon EMS arrival patient SPO2 was in the low 70s and improved to upper 80slow 90s on nonrebreather and he was transported to [facility] in the emergency department patient was noted to be hypoxic and placed on a BiPAP with improvement to mentation and hypoxia. CXR showed bilateral patchy infiltrates. Lab work showed leukocytosis, elevated D-dimer, hyponatremia, hypochloremia and elevated COVID-19 markers with elevated BNP. CTA chest showed no pulmonary embolism. Patient was admitted to the hospitalist service as a COVID-19 PUI and started on antibiotics and Decadron with consult to infectious disease. 03/09: The patient was seen and evaluated today, and he was found to be hemodynamically stable. The patient is currently on BiPAP for possible COVID-19 pneumonia. He was started on Lovenox 1mg/kg for DVT ppx in the setting of d- dimer > 10,000. Infectious Disease was consulted. The patient is pending a TTE. 03/10: No acute events overnight, patient was intubated in the afternoon transferred to ICU 03/11: Patient started on Lantus, free water flushes increased, propofol drip resumed and oral antihypertensive added. 03/12: lantus increased, k at 5, will monitor. I updated his family and his stated that he is not vaccinated. He does have HTN and she will call the RN to update home medications. She did say he takes bystolic and amlopine. She inquired about ventilator and lab work. She had no further questions. 03/13: KVNG overnight. Patient remains hyperglycemic, basal insulin adjusted and increased to Q12hrs. Patient is overall net positive since admit X1 dose of IV lasix, repeat BMP this afternoon. 03/14: Failed SAT this am due to increase agitation, tachycardia and hypertension. Remains on propofol and fentanyl gtt. Hyperkalemia treated with PO kayaxalate. Patient responded to IV lasix yesterday additional dose again today for a net negative balance. Repeat BMP this afternoon. Insulin adjusted for hyperglycemia. 03/15: Remains encephalopathic, not following commansd. Orders placed for CT head/Brain and Neuro consulted. Rectal bleeding subsided, most likely due to hemorrhoids. H&H is stable will continue to monitor. Kayaxexalate for high K, repeat labs 4 to 6hrs post treatment. 03/16: Still agiated this am, CT head with no acute Abn. CXR and ABG noted- evolving pna and worsening hypoxia, now with low grade fevers. Sputum culture ordered, IV Abx added, ID on cosult. 03/17: This am ABG noted, hypoxia improved. Continue to wean FiO2 as tolerated. Still with low grade fevers, on IV Abx per ID. Still with periods of confusion despite sedation, seroquel increased. F/u CXR in the am 03/18: still very agitated especially when off sedation, with hypertension and tachycardia. Continue sedation for RASS -2, PRN antihypertensive for SPB greater than 160. This febrile this am, continue current IV abx per ID 03/19: Patient afebrile overnight, continue IV Abx per ID. ABG also improved this am, continue to wean FIO2 as tolerated. PRN antihypertensive for hypertension. 03/20: Hyperkalemia treated with Kayexalate, Good discontinued, vancomycin and cefepime stopped started Bactrim by ID. Steroid taper started. 03/21: BB started for hypertension, Seroquel increased for agitation and Librium started no acute events reported overnight. [facility] made vent changes 03/22: Adjustment to anxiolytics, respiratory rate on ventilator per [facility]. Patient noted to have bleeding hemorrhoids with clot, requested RN to remove kai wel management system and will order Preparation H. 03/23: Given no confirmed DVT or PE (only superficial thrombus noted on Dopplers) therapeutic Lovenox changed to prophylactic Lovenox. Started on doxazosin to help with retention. Consulted surgery for tracheostomy and propofol discontinued. 03/24: Surgery consult completed, patient changed to prophylaxis anticoagulation, started on doxazosin yesterday with plans to remove Good catheter in 48 hours. Patient with slight hypokalemia today and given Kayexalate. No acute events reported overnight. 03/25: No acute events reported overnight. Patient remains on fentanyl drip and on CPAP trial this morning. 03/26: no acute events reported overnight. placed on CPAP this AM, remains on fent/librium. scheduled for trach/peg this week. Hospitalist Physical - Physical exam Narrative exam: General appearance: Present: well-nourished, obese, other (sedated) - EENT Eyes: Present: PERRL, EOM intact ENT: hearing intact, clear oral mucosa - Neck Neck: Present: normal ROM - Respiratory Respiratory effort: normal Respiratory: bilateral: diminished - Cardiovascular Rhythm: regular Heart Sounds: Present: S1 & S2. Absent: systolic murmur, diastolic murmur - Extremities Extremities: no ischemia, pulses intact, pulses symmetrical, No edema, normal temperature, normal color Peripheral Pulses: within normal limits - Abdominal General gastrointestinal: soft, non-tender, non-distended, normal bowel sounds - Integumentary Integumentary: Present: warm, dry - Psychiatric Psychiatric: other - Neurologic Neurologic: other - Allied Health Allied health notes reviewed: nursing, RT - Constitutional Vitals: Temp Pulse Resp BP Pulse Ox 98.4 F 101 H 17 127/68 96 03/26/21 08:00 03/26/21 12:30 03/26/21 12:30 03/26/21 12:30 03/26/21 12:30 General appearance: Present: no acute distress, well-nourished, obese, other (Intubated and sedated) Results - Labs CBC & Chem 7: 03/26/21 07:09 03/26/21 07:09 Labs: Laboratory Last Values WBC 6.8 K/mm3 (4.5-11.0) 03/26/21 07:09 RBC 4.06 M/mm3 (3.65-5.03) 03/26/21 07:09 Hgb 12.1 gm/dl (11.8-15.2) 03/26/21 07:09 Hct 38.3 % (35.5-45.6) 03/26/21 07:09 MCV 94 fl (84-94) 03/26/21 07:09 MCH 30 pg (28-32) 03/26/21 07:09 MCHC 32 % (32-34) 03/26/21 07:09 RDW 16.5 % (13.2-15.2) H 03/26/21 07:09 Plt Count 139 K/mm3 (140-440) L 03/26/21 07:09 Lymph % (Auto) 12.6 % (13.4-35.0) L 03/17/21 04:40 [place] % (Auto) 11.3 % (0.0-7.3) H 03/17/21 04:40 Eos % (Auto) 0.4 % (0.0-4.3) 03/17/21 04:40 Baso % (Auto) 0.8 % (0.0-1.8) 03/17/21 04:40 Lymph # (Auto) 1.8 K/mm3 (1.2-5.4) 03/17/21 04:40 [place] # (Auto) 1.6 K/mm3 (0.0-0.8) H 03/17/21 04:40 Eos # (Auto) 0.1 K/mm3 (0.0-0.4) 03/17/21 04:40 Baso # (Auto) 0.1 K/mm3 (0.0-0.1) 03/17/21 04:40 Add Manual Diff Complete 03/10/21 04:29 Total Counted 100 03/10/21 04:29 Seg Neutrophils % 74.9 % (40.0-70.0) H 03/17/21 04:40 Seg Neuts % (Manual) 94.0 % (40.0-70.0) H 03/10/21 04:29 Band Neutrophils % 0 % 03/10/21 04:29 Lymphocytes % (Manual) 1.0 % (13.4-35.0) L 03/10/21 04:29 Reactive Lymphs % (Man) 0 % 03/10/21 04:29 Monocytes % (Manual) 5.0 % (0.0-7.3) 03/10/21 04:29 Eosinophils % (Manual) 0 % (0.0-4.3) 03/10/21 04:29 Basophils % (Manual) 0 % (0.0-1.8) 03/10/21 04:29 Metamyelocytes % 0 % 03/10/21 04:29 Myelocytes % 0 % 03/10/21 04:29 Promyelocytes % 0 % 03/10/21 04:29 Blast Cells % 0 % 03/10/21 04:29 Nucleated RBC % 3.0 % (0.0-0.9) H 03/10/21 04:29 Seg Neutrophils # 10.5 K/mm3 (1.8-7.7) H 03/17/21 04:40 Seg Neutrophils # Man 19.4 K/mm3 (1.8-7.7) H 03/10/21 04:29 Band Neutrophils # 0.0 K/mm3 03/10/21 04:29 Lymphocytes # (Manual) 0.2 K/mm3 (1.2-5.4) L 03/10/21 04:29 Abs React Lymphs (Man) 0.0 K/mm3 03/10/21 04:29 Monocytes # (Manual) 1.0 K/mm3 (0.0-0.8) H 03/10/21 04:29 Eosinophils # (Manual) 0.0 K/mm3 (0.0-0.4) 03/10/21 04:29 Basophils # (Manual) 0.0 K/mm3 (0.0-0.1) 03/10/21 04:29 Metamyelocytes # 0.0 K/mm3 03/10/21 04:29 Myelocytes # 0.0 K/mm3 03/10/21 04:29 Promyelocytes # 0.0 K/mm3 03/10/21 04:29 Blast Cells # 0.0 K/mm3 03/10/21 04:29 WBC Morphology Not Reportable 03/10/21 04:29 Hypersegmented Neuts Not Reportable 03/10/21 04:29 Hyposegmented Neuts Not Reportable 03/10/21 04:29 Hypogranular Neuts Not Reportable 03/10/21 04:29 Smudge Cells Not Reportable 03/10/21 04:29 Toxic Granulation Not Reportable 03/10/21 04:29 Toxic Vacuolation Not Reportable 03/10/21 04:29 Dohle Bodies Not Reportable 03/10/21 04:29 Pelger-Huet Anomaly Not Reportable 03/10/21 04:29 Mely Rods Not Reportable 03/10/21 04:29 Platelet Estimate Consistent w auto 03/10/21 04:29 Clumped Platelets Not Reportable 03/10/21 04:29 Plt Clumps, EDTA Not Reportable 03/10/21 04:29 Large Platelets Not Reportable 03/10/21 04:29 Giant Platelets Not Reportable 03/10/21 04:29 Platelet Satelliting Not Reportable 03/10/21 04:29 Plt Morphology Comment Not Reportable 03/10/21 04:29 RBC Morphology Normal 03/10/21 04:29 Dimorphic RBCs Not Reportable 03/10/21 04:29 Polychromasia Not Reportable 03/10/21 04:29 Hypochromasia Not Reportable 03/10/21 04:29 Poikilocytosis Not Reportable 03/10/21 04:29 Anisocytosis Not Reportable 03/10/21 04:29 Microcytosis Not Reportable 03/10/21 04:29 Macrocytosis Not Reportable 03/10/21 04:29 Spherocytes Not Reportable 03/10/21 04:29 Pappenheimer Bodies Not Reportable 03/10/21 04:29 Sickle Cells Not Reportable 03/10/21 04:29 Target Cells Not Reportable 03/10/21 04:29 Tear Drop Cells Not Reportable 03/10/21 04:29 Ovalocytes Not Reportable 03/10/21 04:29 Helmet Cells Not Reportable 03/10/21 04:29 Longo-Webster Bodies Not Reportable 03/10/21 04:29 [place] Rings Not Reportable 03/10/21 04:29 Sieper Cells Not Reportable 03/10/21 04:29 Bite Cells Not Reportable 03/10/21 04:29 Crenated Cell Not Reportable 03/10/21 04:29 Elliptocytes Not Reportable 03/10/21 04:29 Acanthocytes (Spur) Not Reportable 03/10/21 04:29 Rouleaux Not Reportable 03/10/21 04:29 Hemoglobin C Crystals Not Reportable 03/10/21 04:29 Schistocytes Not Reportable 03/10/21 04:29 Malaria parasites Not Reportable 03/10/21 04:29 Shaheen Bodies Not Reportable 03/10/21 04:29 Hem Pathologist Commnt No 03/10/21 04:29 PT 16.1 Sec. (12.2-14.9) H 03/08/21 20:24 INR 1.17 (0.87-1.13) H 03/08/21 20:24 APTT 28.0 Sec. (24.2-36.6) 03/08/21 20:24 D-Dimer 1359.12 ng/mlDDU (0-234) H 03/17/21 04:40 ABG pH 7.353 pH Units (7.350-7.450) 03/25/21 12:35 POC ABG pCO2 71.9 mmHg (32.0-48.0) H 03/12/21 21:54 ABG pCO2 61.9 mm Hg 03/25/21 12:35 POC ABG pO2 53.6 mmHg (83-108) L 03/12/21 21:54 ABG pO2 100.5 mm Hg (80.0-90.0) H 03/25/21 12:35 POC ABG HCO3 30.0 03/12/21 21:54 ABG HCO3 33.6 mmol/L (20.0-26.0) H 03/25/21 12:35 ABG O2 Saturation 97.3 % (95.0-99.0) 03/25/21 12:35 ABG O2 Content 16.2 (0.0-44) 03/25/21 12:35 POC ABG Base Excess 0.5 03/12/21 21:54 ABG Base Excess 6.4 mmol/L (-2.0-3.0) H 03/25/21 12:35 ABG Hemoglobin 12.0 gm/dl (14.0-18.0) L 03/25/21 12:35 ABG Oxyhemoglobin 84.8 (94-98) L 03/12/21 21:54 ABG Carboxyhemoglobin 1.5 % (0.0-5.0) 03/25/21 12:35 ABG Methemoglobin 0.7 % (0.0-1.5) 03/25/21 12:35 ABG Sodium 134.2 mmol/L (136.0-145.0) L 03/12/21 21:54 ABG Potassium 4.9 mmol/L (3.40-4.50) H 03/12/21 21:54 ABG Chloride 99.0 mmol/L (98-107) 03/12/21 21:54 ABG Glucose 306 mg/dL (65-95) H 03/12/21 21:54 Oxyhemoglobin 95.2 % (95.0-99.0) 03/25/21 12:35 Carboxyhemoglobin 0.6 (0.5-1.5) 03/12/21 21:54 FiO2 50 % 03/25/21 12:35 FiO2 % 50.0 03/12/21 21:54 Sodium 139 mmol/L (137-145) 03/26/21 07:09 Potassium 4.6 mmol/L (3.6-5.0) 03/26/21 07:09 Chloride 103.3 mmol/L (98-107) 03/26/21 07:09 Carbon Dioxide 29 mmol/L (22-30) 03/26/21 07:09 Anion Gap 11 mmol/L 03/26/21 07:09 BUN 22 mg/dL (9-20) H 03/26/21 07:09 Creatinine 0.7 mg/dL (0.8-1.3) L 03/26/21 07:09 Estimated GFR > 60 ml/min 03/26/21 07:09 BUN/Creatinine Ratio 31 % 03/26/21 07:09 Glucose 108 mg/dL (75-100) H 03/26/21 07:09 POC Glucose 119 mg/dL (70-105) H 03/26/21 11:15 Lactic Acid 1.90 mmol/L (0.7-2.0) 03/08/21 23:51 Calcium 8.8 mg/dL (8.4-10.2) 03/26/21 07:09 Phosphorus 3.20 mg/dL (2.5-4.5) D 03/23/21 07:04 Magnesium 2.50 mg/dL (1.7-2.3) H 03/23/21 07:04 Ferritin 976.4 ng/mL (30.0-300.0) H 03/15/21 04:00 Total Bilirubin 0.20 mg/dL (0.1-1.2) 03/12/21 08:03 AST 10 units/L (5-40) 03/12/21 08:03 ALT 16 units/L (7-56) 03/12/21 08:03 Alkaline Phosphatase 77 units/L (35-129) 03/12/21 08:03 Lactate Dehydrogenase 630 units/L (91-180) H 03/15/21 06:06 C-Reactive Protein 0.40 mg/dL (0.00-1.30) 03/17/21 04:40 NT-Pro-B Natriuret Pep 1053 pg/mL (0-900) H 03/08/21 20:24 Total Protein 6.0 g/dL (6.3-8.2) L 03/12/21 08:03 Albumin 2.9 g/dL (3.9-5) L 03/12/21 08:03 Albumin/Globulin Ratio 0.9 % 03/12/21 08:03 Triglycerides 305 mg/dL (2-149) H 03/22/21 07:26 Procalcitonin 0.05 ng/mL (<0.15) 03/17/21 04:40 Arterial Blood Glucose 306 mg/dL (65-95) H 03/12/21 21:54 Arterial Blood Ionized Calcium 5.0 mg/dL (4.6-5.3) 03/12/21 21:54 Urine Color Yellow (Yellow) 03/09/21 04:10 Urine Turbidity Slightly-cloudy (Clear) 03/09/21 04:10 Urine pH 5.0 (5.0-7.0) 03/09/21 04:10 Ur Specific [place] 1.041 (1.003-1.030) H 03/09/21 04:10 Urine Protein 100 mg/dl mg/dL (Negative) 03/09/21 04:10 Urine Glucose (UA) Neg mg/dL (Negative) 03/09/21 04:10 Urine Ketones Neg mg/dL (Negative) 03/09/21 04:10 Urine Blood Mod (Negative) 03/09/21 04:10 Urine Nitrite Neg (Negative) 03/09/21 04:10 Urine Bilirubin Neg (Negative) 03/09/21 04:10 Urine Urobilinogen 2.0 mg/dL (<2.0) 03/09/21 04:10 Ur Leukocyte Esterase Neg (Negative) 03/09/21 04:10 Urine WBC (Auto) 4.0 /HPF (0.0-6.0) 03/09/21 04:10 Urine RBC (Auto) 1.0 /HPF (0.0-6.0) 03/09/21 04:10 Urine Bacteria (Auto) 1+ /HPF (Negative) 03/09/21 04:10 Urine Mucus Few /HPF 03/09/21 04:10 Coronavirus (PCR) Positive (Negative) A 03/09/21 08:00 Miscellaneous Test Flexitest 1 03/16/21 13:14 Good/IV: Voiding Method Indwelling Catheter Active Medications - Current Medications Current Medications: Generic Name Dose Route Start Last Admin Trade Name Freq PRN Reason Stop Dose Admin Acetaminophen 650 mg 03/09/21 01:26 03/23/21 10:03 Acetaminophen 325 Mg Tab PO 650 mg Q4H PRN Administration Pain MILD(1-3)/Fever >100.5/RAYO Albuterol 2.5 mg 03/09/21 01:26 03/18/21 21:06 Albuterol 2.5 Mg/3 Ml Nebu IH 2.5 mg Q4HRT PRN Administration Shortness Of Breath Arformoterol Tartrate 15 mcg 03/11/21 20:00 03/26/21 08:46 Arformoterol 15 Mcg/2 Ml Nebu IH 15 mcg Q12HRT BLANCA Administration Ascorbic Acid 500 mg 03/10/21 14:00 03/26/21 09:57 Ascorbic Acid 500 Mg Tab PO 500 mg BID BLANCA Administration Budesonide 0.25 mg 03/11/21 20:00 03/26/21 08:46 Budesonide 0.25 Mg/2 Ml Nebu IH 0.25 mg Q12HRT BLANCA Administration Chlordiazepoxide HCl 75 mg 03/22/21 18:00 03/26/21 05:24 Chlordiazepoxide 25 Mg Cap PO 75 mg Q6HR BLANCA Administration Dextrose 0 ml 03/20/21 10:52 Dextrose 10% *Hypoglycemia IV PRN PRN Hypoglycemia Doxazosin Mesylate 1 mg 03/23/21 14:00 03/26/21 09:57 Doxazosin 1 Mg Tab PO 1 mg QDAY BLANCA Administration Enoxaparin Sodium 60 mg 03/24/21 10:00 03/26/21 09:57 Enoxaparin 60 Mg/0.6 Ml Inj SUB-Q 60 mg QDAY BLANCA Administration Protocol Famotidine 20 mg 03/12/21 22:00 03/26/21 09:57 Famotidine 20 Mg Tab FEEDTUBE 20 mg BID BLANCA Administration Hydralazine HCl 50 mg 03/23/21 14:26 03/26/21 05:24 Hydralazine 25 Mg Tab PO 50 mg Q8HR [facility] Administration Hydrophilic Ointment 1 applic 03/10/21 15:39 Lip Therapy Vaseline TP Q2HR PRN Dry Lips Fentanyl Citrate 2,000 mcg in 100 mls @ 5.897 mls/hr 03/10/21 17:00 03/26/21 09:00 Fentanyl Drip Premix IV 2 mcg/kg/hr TITR BLANCA 11.793 mls/hr Administration Protocol 1 MCG/KG/HR Propofol 1,000 mg in 100 mls @ 3.507 mls/hr 03/11/21 17:00 03/22/21 18:02 Diprivan 10 Mg/Ml IV 0 mcg/kg/min TITR BLANCA 0 mls/hr Titration Protocol 5 MCG/KG/MIN Insulin Glargine 25 units 03/14/21 10:00 03/26/21 09:58 Insulin Glargine 100 Units/Ml SUB-Q 25 units BID BLANCA Administration Insulin Human Lispro 0 unit 03/11/21 18:00 03/26/21 06:30 Insulin Lispro 100 Unit/Ml SUB-Q Not Given Q6HR [facility] Protocol Labetalol HCl 10 mg 03/12/21 21:13 03/21/21 16:54 Labetalol 20 Mg/4 Ml Inj IV 10 mg Q6H PRN Administration Blood Pressure Methylprednisolone Sodium Succinate 40 mg 03/27/21 10:00 Methylprednisolone Sod Succinate 40 Mg/1 Ml Inj IV 03/28/21 10:01 Q24HR [facility] Metoprolol Tartrate 12.5 mg 03/21/21 22:00 03/26/21 09:58 Metoprolol Tartrate 25 Mg Tab PO 12.5 mg BID [facility] Administration Midazolam HCl 2 mg 01/19/22 08:49 03/23/21 07:58 Midazolam 2 Mg/2 Ml Inj IV 2 mg Q2H PRN Administration VENT SYNCHRONY Multi-Ingred Cream/Lotion/Oil/Oint 1 applic 03/10/21 15:39 Mineral Oil/Petrolatum, White Ophth Oint 3.5 Gm OU Q4HR PRN Dry Eye(s) Ondansetron HCl 4 mg 03/09/21 01:26 Ondansetron 4 Mg/2 Ml Inj IV Q8H PRN Nausea And Vomiting Phenyleph/Shark Oil/Min Oil/Petrol 1 applic 03/22/21 17:35 Pe/Mo/Pet,Wh 10 Applic/28 Gm Tube MO Q6HR PRN Hemorrhoids Prednisone 10 mg 03/29/21 10:00 Prednisone 10 Mg Tab PO DAILY BLANCA Quetiapine Fumarate 300 mg 03/21/21 22:00 03/26/21 09:57 Quetiapine 100 Mg Tab PO 300 mg BID BLANCA Administration Senna/Docusate Sodium 1 tab 03/10/21 22:00 03/26/21 09:57 Sennosides/Docusate Sodium 8.6/50 Mg Tab FEEDTUBE 1 tab BID BLANCA Administration Sodium Chloride 10 ml 03/09/21 10:00 03/26/21 09:59 Sodium Chloride 0.9% 10 Ml Flush Syringe IV 10 ml BID BLANCA Administration Sodium Chloride 10 ml 03/09/21 01:26 Sodium Chloride 0.9% 10 Ml Flush Syringe IV PRN PRN LINE FLUSH Sodium Chloride 10 ml 03/20/21 09:48 Sodium Chloride 0.9% 50 Ml Ivpb IV PRN PRN FLUSH Trimethoprim/Sulfamethoxazole 1 each 03/20/21 16:00 03/26/21 09:57 Sulfamethoxazole/Trimethoprim 800/160mg Ds Tab PO 03/27/21 22:01 1 each Q12HR [facility] Administration Protocol Zinc Sulfate 220 mg 03/10/21 14:00 03/26/21 09:57 Zinc Sulfate 220 Mg Cap PO 220 mg BID BLANCA Administration Nutrition/Malnutrition Assess - Dietary Evaluation Nutrition/Malnutrition Findings: Nutrition Notes Start: 03/09/21 08:49 Freq: Status: Active Protocol: Document 03/20/21 16:21 BRYANNA (Rec: 03/20/21 16:53 BRYANNA [email or web address]) Nutrition Notes Current Diagnosis Diabetes,Sepsis,Hypertension, Respiratory Failure Other Pertinent Diagnosis COVID-19, Bilateral Pneumonia. Current Diet TF-Glucerna 1.2 Tyson at 40 ml/ hr (since D 03/17). Labs/Tests 03/20: Na 146, K 5.5, Cl 111.1 , BUN 34, Crea 0.7, Glu 145, Mg 2.5. Pertinent Medications 03/20: Vit C, Insulin, ZnSO4, Propofol @ 35.07 ml/hr ( 926Kcal), others nutritionally unremarkable. Height 5 ft 11 in Weight 120 kg [place] Body Weight (kg) 78.18 BMI 36.8 Weight change and time frame 3.0 Kg body weight gain in 3 days reported. Weight Status Obese Subjective/Other Information RD consult for routine F/U on TF tolerance. Pt remains on mechanical ventilation, according to [facility] notes. TF continues as prescribed. Pt continues with low-grade fever. Percent of energy/protein needs met: Prescribed Glucerna 1.2 Tyson @ 40 ml/hr provides for energy/ protein needs (1,152 Kcal/58 g ) during LOS, additionally, Propofol contributes with 926 Kcal, 87% Kcal; 46% AA. #1 Nutrition Diagnosis Inadequate oral intake Diagnosis Progress(for reassessment Continues documentation) Nutrition Intervention Nutrition Support: Continue Glucerna 1.2 @ 40 ml/ hr. Flush: 200ml water Q 4 hr ( until hypernatremia resolved). Kcal 1,152 Protein (gm) 58 Carbohydrates (gm) 110 Fat (gm) 58 Fluid (mL) 773 Fiber (gm) 15 % RDI: 48% Kcal; 46% AA. Goal #1 Provide at least 75% of energy /protein needs through Enteral Feeding during LOS. Follow-Up By: 03/27/21 Additional Comments Continue monitoring TF tolerance and BM. <RAFAEL DOMINGUEZ - Last Filed: 03/28/21 10:23> Assessment and Plan Assessment and plan: I saw and evaluated the patient. Discussed with the nurse practitioner and agree with their findings and plan as documented in this note. Hospitalist Physical - Constitutional Vitals: Temp Pulse Resp BP Pulse Ox 99 F 120 H 20 134/78 96 03/28/21 08:00 03/28/21 09:58 03/28/21 09:00 03/28/21 09:58 03/28/21 09:00 Results - Labs CBC & Chem 7: 03/28/21 07:14 03/28/21 07:14 Labs: Laboratory Last Values WBC 8.8 K/mm3 (4.5-11.0) 03/28/21 07:14 RBC 4.22 M/mm3 (3.65-5.03) 03/28/21 07:14 Hgb 12.8 gm/dl (11.8-15.2) 03/28/21 07:14 Hct 39.9 % (35.5-45.6) 03/28/21 07:14 MCV 94 fl (84-94) 03/28/21 07:14 MCH 30 pg (28-32) 03/28/21 07:14 MCHC 32 % (32-34) 03/28/21 07:14 RDW 16.4 % (13.2-15.2) H 03/28/21 07:14 Plt Count 140 K/mm3 (140-440) 03/28/21 07:14 Lymph % (Auto) 12.6 % (13.4-35.0) L 03/17/21 04:40 [place] % (Auto) 11.3 % (0.0-7.3) H 03/17/21 04:40 Eos % (Auto) 0.4 % (0.0-4.3) 03/17/21 04:40 Baso % (Auto) 0.8 % (0.0-1.8) 03/17/21 04:40 Lymph # (Auto) 1.8 K/mm3 (1.2-5.4) 03/17/21 04:40 [place] # (Auto) 1.6 K/mm3 (0.0-0.8) H 03/17/21 04:40 Eos # (Auto) 0.1 K/mm3 (0.0-0.4) 03/17/21 04:40 Baso # (Auto) 0.1 K/mm3 (0.0-0.1) 03/17/21 04:40 Add Manual Diff Complete 03/10/21 04:29 Total Counted 100 03/10/21 04:29 Seg Neutrophils % 74.9 % (40.0-70.0) H 03/17/21 04:40 Seg Neuts % (Manual) 94.0 % (40.0-70.0) H 03/10/21 04:29 Band Neutrophils % 0 % 03/10/21 04:29 Lymphocytes % (Manual) 1.0 % (13.4-35.0) L 03/10/21 04:29 Reactive Lymphs % (Man) 0 % 03/10/21 04:29 Monocytes % (Manual) 5.0 % (0.0-7.3) 03/10/21 04:29 Eosinophils % (Manual) 0 % (0.0-4.3) 03/10/21 04:29 Basophils % (Manual) 0 % (0.0-1.8) 03/10/21 04:29 Metamyelocytes % 0 % 03/10/21 04:29 Myelocytes % 0 % 03/10/21 04:29 Promyelocytes % 0 % 03/10/21 04:29 Blast Cells % 0 % 03/10/21 04:29 Nucleated RBC % 3.0 % (0.0-0.9) H 03/10/21 04:29 Seg Neutrophils # 10.5 K/mm3 (1.8-7.7) H 03/17/21 04:40 Seg Neutrophils # Man 19.4 K/mm3 (1.8-7.7) H 03/10/21 04:29 Band Neutrophils # 0.0 K/mm3 03/10/21 04:29 Lymphocytes # (Manual) 0.2 K/mm3 (1.2-5.4) L 03/10/21 04:29 Abs React Lymphs (Man) 0.0 K/mm3 03/10/21 04:29 Monocytes # (Manual) 1.0 K/mm3 (0.0-0.8) H 03/10/21 04:29 Eosinophils # (Manual) 0.0 K/mm3 (0.0-0.4) 03/10/21 04:29 Basophils # (Manual) 0.0 K/mm3 (0.0-0.1) 03/10/21 04:29 Metamyelocytes # 0.0 K/mm3 03/10/21 04:29 Myelocytes # 0.0 K/mm3 03/10/21 04:29 Promyelocytes # 0.0 K/mm3 03/10/21 04:29 Blast Cells # 0.0 K/mm3 03/10/21 04:29 WBC Morphology Not Reportable 03/10/21 04:29 Hypersegmented Neuts Not Reportable 03/10/21 04:29 Hyposegmented Neuts Not Reportable 03/10/21 04:29 Hypogranular Neuts Not Reportable 03/10/21 04:29 Smudge Cells Not Reportable 03/10/21 04:29 Toxic Granulation Not Reportable 03/10/21 04:29 Toxic Vacuolation Not Reportable 03/10/21 04:29 Dohle Bodies Not Reportable 03/10/21 04:29 Pelger-Huet Anomaly Not Reportable 03/10/21 04:29 Mely Rods Not Reportable 03/10/21 04:29 Platelet Estimate Consistent w auto 03/10/21 04:29 Clumped Platelets Not Reportable 03/10/21 04:29 Plt Clumps, EDTA Not Reportable 03/10/21 04:29 Large Platelets Not Reportable 03/10/21 04:29 Giant Platelets Not Reportable 03/10/21 04:29 Platelet Satelliting Not Reportable 03/10/21 04:29 Plt Morphology Comment Not Reportable 03/10/21 04:29 RBC Morphology Normal 03/10/21 04:29 Dimorphic RBCs Not Reportable 03/10/21 04:29 Polychromasia Not Reportable 03/10/21 04:29 Hypochromasia Not Reportable 03/10/21 04:29 Poikilocytosis Not Reportable 03/10/21 04:29 Anisocytosis Not Reportable 03/10/21 04:29 Microcytosis Not Reportable 03/10/21 04:29 Macrocytosis Not Reportable 03/10/21 04:29 Spherocytes Not Reportable 03/10/21 04:29 Pappenheimer Bodies Not Reportable 03/10/21 04:29 Sickle Cells Not Reportable 03/10/21 04:29 Target Cells Not Reportable 03/10/21 04:29 Tear Drop Cells Not Reportable 03/10/21 04:29 Ovalocytes Not Reportable 03/10/21 04:29 Helmet Cells Not Reportable 03/10/21 04:29 [place] Bodies Not Reportable 03/10/21 04:29 [place] Rings Not Reportable 03/10/21 04:29 Sieper Cells Not Reportable 03/10/21 04:29 Bite Cells Not Reportable 03/10/21 04:29 Crenated Cell Not Reportable 03/10/21 04:29 Elliptocytes Not Reportable 03/10/21 04:29 Acanthocytes (Spur) Not Reportable 03/10/21 04:29 Rouleaux Not Reportable 03/10/21 04:29 Hemoglobin C Crystals Not Reportable 03/10/21 04:29 Schistocytes Not Reportable 03/10/21 04:29 Malaria parasites Not Reportable 03/10/21 04:29 Shaheen Bodies Not Reportable 03/10/21 04:29 Hem Pathologist Commnt No 03/10/21 04:29 PT 16.1 Sec. (12.2-14.9) H 03/08/21 20:24 INR 1.17 (0.87-1.13) H 03/08/21 20:24 APTT 28.0 Sec. (24.2-36.6) 03/08/21 20:24 D-Dimer 1359.12 ng/mlDDU (0-234) H 03/17/21 04:40 ABG pH 7.353 pH Units (7.350-7.450) 03/25/21 12:35 POC ABG pCO2 71.9 mmHg (32.0-48.0) H 03/12/21 21:54 ABG pCO2 61.9 mm Hg 03/25/21 12:35 POC ABG pO2 53.6 mmHg (83-108) L 03/12/21 21:54 ABG pO2 100.5 mm Hg (80.0-90.0) H 03/25/21 12:35 POC ABG HCO3 30.0 03/12/21 21:54 ABG HCO3 33.6 mmol/L (20.0-26.0) H 03/25/21 12:35 ABG O2 Saturation 97.3 % (95.0-99.0) 03/25/21 12:35 ABG O2 Content 16.2 (0.0-44) 03/25/21 12:35 POC ABG Base Excess 0.5 03/12/21 21:54 ABG Base Excess 6.4 mmol/L (-2.0-3.0) H 03/25/21 12:35 ABG Hemoglobin 12.0 gm/dl (14.0-18.0) L 03/25/21 12:35 ABG Oxyhemoglobin 84.8 (94-98) L 03/12/21 21:54 ABG Carboxyhemoglobin 1.5 % (0.0-5.0) 03/25/21 12:35 ABG Methemoglobin 0.7 % (0.0-1.5) 03/25/21 12:35 ABG Sodium 134.2 mmol/L (136.0-145.0) L 03/12/21 21:54 ABG Potassium 4.9 mmol/L (3.40-4.50) H 03/12/21 21:54 ABG Chloride 99.0 mmol/L (98-107) 03/12/21 21:54 ABG Glucose 306 mg/dL (65-95) H 03/12/21 21:54 Oxyhemoglobin 95.2 % (95.0-99.0) 03/25/21 12:35 Carboxyhemoglobin 0.6 (0.5-1.5) 03/12/21 21:54 FiO2 50 % 03/25/21 12:35 FiO2 % 50.0 03/12/21 21:54 Sodium [facility] 03/28/21 07:14 Potassium [facility] 03/28/21 07:14 Chloride [facility] 03/28/21 07:14 Carbon Dioxide [facility] 03/28/21 07:14 Anion Gap [facility] 03/28/21 07:14 BUN [facility] 03/28/21 07:14 Creatinine [facility] 03/28/21 07:14 Estimated GFR [facility] 03/28/21 07:14 BUN/Creatinine Ratio [facility] 03/28/21 07:14 Glucose [facility] 03/28/21 07:14 POC Glucose 96 mg/dL (70-105) 03/28/21 05:24 Lactic Acid 1.90 mmol/L (0.7-2.0) 03/08/21 23:51 Calcium TNR 03/28/21 07:14 Phosphorus [place] 03/28/21 07:14 Magnesium [facility] 03/28/21 07:14 Ferritin 976.4 ng/mL (30.0-300.0) H 03/15/21 04:00 Total Bilirubin 0.20 mg/dL (0.1-1.2) 03/12/21 08:03 AST 10 units/L (5-40) 03/12/21 08:03 ALT 16 units/L (7-56) 03/12/21 08:03 Alkaline Phosphatase 77 units/L (35-129) 03/12/21 08:03 Lactate Dehydrogenase 630 units/L (91-180) H 03/15/21 06:06 C-Reactive Protein 0.40 mg/dL (0.00-1.30) 03/17/21 04:40 NT-Pro-B Natriuret Pep 1053 pg/mL (0-900) H 03/08/21 20:24 Total Protein 6.0 g/dL (6.3-8.2) L 03/12/21 08:03 Albumin 2.9 g/dL (3.9-5) L 03/12/21 08:03 Albumin/Globulin Ratio 0.9 % 03/12/21 08:03 Triglycerides 305 mg/dL (2-149) H 03/22/21 07:26 Procalcitonin 0.05 ng/mL (<0.15) 03/17/21 04:40 Arterial Blood Glucose 306 mg/dL (65-95) H 03/12/21 21:54 Arterial Blood Ionized Calcium 5.0 mg/dL (4.6-5.3) 03/12/21 21:54 Urine Color Yellow (Yellow) 03/09/21 04:10 Urine Turbidity Slightly-cloudy (Clear) 03/09/21 04:10 Urine pH 5.0 (5.0-7.0) 03/09/21 04:10 Ur Specific [place] 1.041 (1.003-1.030) H 03/09/21 04:10 Urine Protein 100 mg/dl mg/dL (Negative) 03/09/21 04:10 Urine Glucose (UA) Neg mg/dL (Negative) 03/09/21 04:10 Urine Ketones Neg mg/dL (Negative) 03/09/21 04:10 Urine Blood Mod (Negative) 03/09/21 04:10 Urine Nitrite Neg (Negative) 03/09/21 04:10 Urine Bilirubin Neg (Negative) 03/09/21 04:10 Urine Urobilinogen 2.0 mg/dL (<2.0) 03/09/21 04:10 Ur Leukocyte Esterase Neg (Negative) 03/09/21 04:10 Urine WBC (Auto) 4.0 /HPF (0.0-6.0) 03/09/21 04:10 Urine RBC (Auto) 1.0 /HPF (0.0-6.0) 03/09/21 04:10 Urine Bacteria (Auto) 1+ /HPF (Negative) 03/09/21 04:10 Urine Mucus Few /HPF 03/09/21 04:10 Coronavirus (PCR) Positive (Negative) A 03/09/21 08:00 Miscellaneous Test Flexitest 1 03/16/21 13:14 Good/IV: Voiding Method Indwelling Catheter Active Medications - Current Medications Current Medications: Generic Name Dose Route Start Last Admin Trade Name Freq PRN Reason Stop Dose Admin Acetaminophen 650 mg 03/09/21 01:26 03/28/21 05:15 Acetaminophen 325 Mg Tab PO 650 mg Q4H PRN Administration Pain MILD(1-3)/Fever >100.5/RAYO Albuterol 2.5 mg 03/09/21 01:26 03/18/21 21:06 Albuterol 2.5 Mg/3 Ml Nebu IH 2.5 mg Q4HRT PRN Administration Shortness Of Breath Arformoterol Tartrate 15 mcg 03/11/21 20:00 03/28/21 08:31 Arformoterol 15 Mcg/2 Ml Nebu IH Not Given Q12HRT [facility]AN[facility] Ascorbic Acid 500 mg 03/10/21 14:00 03/28/21 09:58 Ascorbic Acid 500 Mg Tab PO 500 mg BID BLANCA Administration Bisacodyl 10 mg 03/26/21 13:43 03/26/21 13:51 Bisacodyl 10 Mg Rect Supp MO 10 mg QDAY PRN Administration Constipation Budesonide 0.25 mg 03/11/21 20:00 03/28/21 08:31 Budesonide 0.25 Mg/2 Ml Nebu IH Not Given Q12HRT [facility]AN[facility] Chlordiazepoxide HCl 75 mg 03/22/21 18:00 03/28/21 05:15 Chlordiazepoxide 25 Mg Cap PO 75 mg Q6HR BALNCA Administration Dextrose 0 ml 03/20/21 10:52 Dextrose 10% *Hypoglycemia IV PRN PRN Hypoglycemia Doxazosin Mesylate 1 mg 03/23/21 14:00 03/28/21 09:58 Doxazosin 1 Mg Tab PO 1 mg QDAY [facility]ANCA Administration Enoxaparin Sodium 60 mg 03/24/21 10:00 03/28/21 09:58 Enoxaparin 60 Mg/0.6 Ml Inj SUB-Q 60 mg QDAY BLANCA Administration Protocol Famotidine 20 mg 03/12/21 22:00 03/28/21 09:58 Famotidine 20 Mg Tab FEEDTUBE 20 mg BID [facility] Administration Hydralazine HCl 50 mg 03/23/21 14:26 03/28/21 05:15 Hydralazine 25 Mg Tab PO 50 mg Q8HR [facility] Administration Hydrophilic Ointment 1 applic 03/10/21 15:39 Lip Therapy Vaseline TP Q2HR PRN Dry Lips Fentanyl Citrate 2,000 mcg in 100 mls @ 5.897 mls/hr 03/10/21 17:00 03/28/21 07:19 Fentanyl Drip Premix IV 2 mcg/kg/hr TITR [facility]AN[facility] 11.793 mls/hr Titration Protocol 1 MCG/KG/HR Propofol 1,000 mg in 100 mls @ 3.507 mls/hr 03/11/21 17:00 03/22/21 18:02 Diprivan 10 Mg/Ml IV 0 mcg/kg/min TITR BLANCA 0 mls/hr Titration Protocol 5 MCG/KG/MIN Insulin Glargine 15 units 03/29/21 22:00 Insulin Glargine 100 Units/Ml SUB-Q QHS [facility] Insulin Human Lispro 0 unit 03/11/21 18:00 03/28/21 05:38 Insulin Lispro 100 Unit/Ml SUB-Q Not Given Q6HR [facility] Protocol Labetalol HCl 10 mg 03/12/21 21:13 03/21/21 16:54 Labetalol 20 Mg/4 Ml Inj IV 10 mg Q6H PRN Administration Blood Pressure Metoprolol Tartrate 12.5 mg 03/21/21 22:00 03/28/21 09:57 Metoprolol Tartrate 25 Mg Tab PO 12.5 mg BID [facility] Administration Midazolam HCl 2 mg 03/15/21 08:49 03/23/21 07:58 Midazolam 2 Mg/2 Ml Inj IV 2 mg Q2H PRN Administration VENT SYNCHRONY Multi-Ingred Cream/Lotion/Oil/Oint 1 applic 03/10/21 15:39 Mineral Oil/Petrolatum, White Ophth Oint 3.5 Gm OU Q4HR PRN Dry Eye(s) Ondansetron HCl 4 mg 03/09/21 01:26 Ondansetron 4 Mg/2 Ml Inj IV Q8H PRN Nausea And Vomiting Phenyleph/Shark Oil/Min Oil/Petrol 1 applic 03/22/21 17:35 03/28/21 03:50 Pe/Mo/Pet,Wh 10 Applic/28 Gm Tube MO 1 applic Q6HR PRN Administration Hemorrhoids Prednisone 10 mg 03/29/21 10:00 Prednisone 10 Mg Tab PO DAILY [facility] Quetiapine Fumarate 300 mg 03/21/21 22:00 03/28/21 09:58 Quetiapine 100 Mg Tab PO 300 mg BID [facility] Administration Senna/Docusate Sodium 1 tab 03/10/21 22:00 03/28/21 09:58 Sennosides/Docusate Sodium 8.6/50 Mg Tab FEEDTUBE 1 tab BID [facility] Administration Sodium Chloride 10 ml 03/09/21 10:00 03/28/21 09:59 Sodium Chloride 0.9% 10 Ml Flush Syringe IV 10 ml BID [facility] Administration Sodium Chloride 10 ml 03/09/21 01:26 Sodium Chloride 0.9% 10 Ml Flush Syringe IV PRN PRN LINE FLUSH Sodium Chloride 10 ml 03/20/21 09:48 Sodium Chloride 0.9% 50 Ml Ivpb IV PRN PRN FLUSH Zinc Sulfate 220 mg 03/10/21 14:00 03/28/21 09:58 Zinc Sulfate 220 Mg Cap PO 220 mg BID [facility]AN[facility] Administration Nutrition/Malnutrition Assess - Dietary Evaluation Nutrition/Malnutrition Findings: Nutrition Notes Start: 03/09/21 08:49 Freq: Status: Active Protocol: Document 03/27/21 14:48 BRIAN (Rec: 03/27/21 15:01 [facility] [id number]) Nutrition Notes Initial or Follow up Reassessment Current Diagnosis Diabetes,Sepsis,Hypertension, Respiratory Failure Other Pertinent Diagnosis COVID-19, Bilateral Pneumonia. Current Diet TF-Glucerna 1.2 at 40 ml/hr Labs/Tests BG 150 Na 136 (Na lab been <145 since 03/24) Pertinent Medications Solumedrol Height 5 ft 11 in Weight 122 kg [place] Body Weight (kg) 78.18 BMI 37.5 Weight Status Obese Subjective/Other Information Pt remains on vent support, but no longer receives propofol. RN informed of intent to increase TF goal rate. Percent of energy/protein needs met: 47% energy 45% pro Burn Absent Trauma Absent #1 Nutrition Diagnosis Inadequate oral intake Diagnosis Progress(for reassessment Continues documentation) Is patient on ventilator? Yes Is Patient Ambulatory and/or Out of Bed No REE-(Barber-St. Jeor-confined to bed) 2449.140 Calculation Used for Recommendations 70-80% energy needs Additional Notes Energy needs: 2370-2954 kcal/ day Pro needs 1.3g/kg adjBW: 130g/ day Fluid needs 1ml/kcal Nutrition Intervention Nutrition Support: Increase TF goal rate to 70ml/ hr with 110ml water flush q4h. Kcal 2,016 Protein (gm) 101 Carbohydrates (gm) 192 Fat (gm) 101 Fluid (mL) 1,352 Fiber (gm) 27 Goal #1 TF tolerance Goal #2 TF to meet at least 75% energy and pro needs Follow-Up By: 03/31/21 Additional Comments F/U: TF goal rate increase/ tolerance, vent status, Na lab /water flush
--- NOTE | 2021-03-26 14:34 | Progress Note ---
Assessment and Plan Acute hypoxemic respiratory failure, on continuous noninvasive ventilation COVID-19 infection Bilateral pneumonia History of diabetes Obesity Hypertension Leukocytosis Possible venous thromboembolic phenomena with significantly elevated D-dimers DM II Elevated serum inflammatory markers to include CRP levels, ferritin and LDH - ETT day # 17; awaiting tracheostomy - pull yusuf in am - continue Daily SAT and SBT assessment as tolerated - continue care as below otherwise; - continue to wean supplemental oxygen for target O2 sat's > 90% acutely - VAP bundle addressed - continue lung protective strategies - continue bronchodilators with pulmonary hygiene per RT - wean per pulmonary driven protocols otherwise - continue accuchecks with glycemic control per SSI (While critically ill target blood glucose of 140-180 mg/dL; avoid hypoglycemia) - sedation prn for target RASS 0 to -1 - avoid nephrotoxins, renally dose all medications - avoid benzodiazepine's, reduce the possibility of delirium - AB's per ID rec's - prn analgesia per pain score - Maintenance of sleep-wake cycle, avoid delirium - G.I. & VTE prophylaxis - PT/OT/ROM exercises - mobility protocols for pressure ulcer prophylaxis - Monitor hemodynamics closely - continue other care per attending / other consultants - discharge planning ongoing concurrently COVID SPECIFIC INTERVENTIONS - Remdesivir as per ID/Pulmonary developed protocols (received) - continue systemic steroids for severe COVID-19 infection empirically (Decadron) - follow repeat COVID tests results - zinc and vitamin C supplementation - Monitor inflammatory markers per facility protocol - ferritin, Ddimer, CRP - therapeutic anticoagulation per system Protocol based on d-dimer and clinical considerations (treatment dose) - Continue contact and airborne isolation .... Re-evaluate in am & prn CONDITION: CRITICAL PROGNOSIS: GUARDED CODE STATUS: FULL CODE The high probability of a clinically significant, sudden or life-threatening deterioration of the [respiratory, cardiovascular & hematologic] system(s) required my full and direct attention, intervention and personal management. The aggregate critical care time was [32] minutes without overlap. Time includes spent on; [x] Data Review and interpretation [x] Patient assessment and monitoring of vital signs [x] Documentation [x] Medication orders and management Subjective Date of service: 03/26/21 Principal diagnosis: COVID-19 infection; DM II; Bilateral pneumonia; Obesity; HTN Interval history: Patient is seen today for: Acute hypoxemic respiratory failure; COVID-19 infection; DM II; Bilateral pneumonia; Obesity; HTN Seen and examined at bedside; 24hour events reviewed; nursing and respiratory care staff consulted; no adverse overnight events reported to me; resting in bed; remains on MVS; tolerating bedside SBT but tenuously at times; no emesis ort overt aspiration Objective Vital Signs - 12hr 03/26/21 03/26/21 03/26/21 02:45 03:00 03:15 Temperature Pulse Rate 94 H 92 H 92 H Pulse Rate [ Bilateral Throughout] Pulse Rate [ From Monitor] Respiratory 12 12 12 Rate Respiratory Rate [Bilateral Throughout] Blood Pressure 117/66 117/66 112/69 O2 Sat by Pulse 99 98 98 Oximetry 03/26/21 03/26/21 03/26/21 03:16 03:30 03:45 Temperature 99.8 F H Pulse Rate 92 H 91 H Pulse Rate [ Bilateral Throughout] Pulse Rate [ From Monitor] Respiratory 12 12 Rate Respiratory Rate [Bilateral Throughout] Blood Pressure 105/66 124/62 O2 Sat by Pulse 99 99 Oximetry 03/26/21 03/26/21 03/26/21 04:00 04:15 04:30 Temperature Pulse Rate 93 H 92 H 93 H Pulse Rate [ Bilateral Throughout] Pulse Rate [ 92 H From Monitor] Respiratory 12 13 13 Rate Respiratory Rate [Bilateral Throughout] Blood Pressure 107/67 107/68 104/68 O2 Sat by Pulse 98 98 98 Oximetry 03/26/21 03/26/21 03/26/21 04:40 04:45 05:00 Temperature Pulse Rate 92 H 92 H 92 H Pulse Rate [ Bilateral Throughout] Pulse Rate [ From Monitor] Respiratory 12 11 L Rate Respiratory Rate [Bilateral Throughout] Blood Pressure 104/68 111/78 117/72 O2 Sat by Pulse 98 98 98 Oximetry 03/26/21 03/26/21 03/26/21 05:15 05:24 05:30 Temperature Pulse Rate 92 H 92 H 92 H Pulse Rate [ Bilateral Throughout] Pulse Rate [ From Monitor] Respiratory 12 12 Rate Respiratory Rate [Bilateral Throughout] Blood Pressure 122/71 122/71 125/72 O2 Sat by Pulse 98 98 Oximetry 03/26/21 03/26/21 03/26/21 05:45 06:00 06:15 Temperature Pulse Rate 92 H 92 H 95 H Pulse Rate [ Bilateral Throughout] Pulse Rate [ From Monitor] Respiratory 11 L 11 L 15 Rate Respiratory Rate [Bilateral Throughout] Blood Pressure 121/78 123/78 143/80 O2 Sat by Pulse 98 98 99 Oximetry 03/26/21 03/26/21 03/26/21 06:30 06:45 07:00 Temperature Pulse Rate 96 H 96 H 96 H Pulse Rate [ Bilateral Throughout] Pulse Rate [ From Monitor] Respiratory 13 16 14 Rate Respiratory Rate [Bilateral Throughout] Blood Pressure 123/76 128/75 134/71 O2 Sat by Pulse 99 98 98 Oximetry 03/26/21 03/26/21 03/26/21 07:15 07:30 07:45 Temperature Pulse Rate 98 H 106 H 113 H Pulse Rate [ Bilateral Throughout] Pulse Rate [ From Monitor] Respiratory 15 19 23 Rate Respiratory Rate [Bilateral Throughout] Blood Pressure 144/87 142/88 184/103 O2 Sat by Pulse 99 99 98 Oximetry 03/26/21 03/26/21 03/26/21 08:00 08:15 08:30 Temperature 98.4 F Pulse Rate 114 H 115 H 118 H Pulse Rate [ Bilateral Throughout] Pulse Rate [ 114 H From Monitor] Respiratory 23 27 H 34 H Rate Respiratory Rate [Bilateral Throughout] Blood Pressure 184/103 178/98 173/104 O2 Sat by Pulse 97 96 96 Oximetry 03/26/21 03/26/21 03/26/21 08:40 08:45 08:49 Temperature Pulse Rate 114 H 114 H 113 H Pulse Rate [ Bilateral Throughout] Pulse Rate [ From Monitor] Respiratory 26 H 24 Rate Respiratory Rate [Bilateral Throughout] Blood Pressure 156/78 156/78 156/78 O2 Sat by Pulse 96 95 96 Oximetry 03/26/21 03/26/21 03/26/21 08:52 09:00 09:15 Temperature Pulse Rate 112 H 112 H Pulse Rate [ 113 H Bilateral Throughout] Pulse Rate [ From Monitor] Respiratory 24 19 Rate Respiratory 24 Rate [Bilateral Throughout] Blood Pressure 147/84 140/84 O2 Sat by Pulse 100 100 Oximetry 03/26/21 03/26/21 03/26/21 09:30 09:45 09:57 Temperature Pulse Rate 111 H 112 H 111 H Pulse Rate [ Bilateral Throughout] Pulse Rate [ From Monitor] Respiratory 15 15 Rate Respiratory Rate [Bilateral Throughout] Blood Pressure 138/85 152/88 152/88 O2 Sat by Pulse 100 100 Oximetry 03/26/21 03/26/21 03/26/21 09:58 10:00 10:15 Temperature Pulse Rate 111 H 111 H 108 H Pulse Rate [ Bilateral Throughout] Pulse Rate [ From Monitor] Respiratory 16 20 Rate Respiratory Rate [Bilateral Throughout] Blood Pressure 152/88 133/82 135/78 O2 Sat by Pulse 100 99 Oximetry 03/26/21 03/26/21 03/26/21 10:30 10:45 11:00 Temperature Pulse Rate 110 H 108 H 107 H Pulse Rate [ Bilateral Throughout] Pulse Rate [ From Monitor] Respiratory 21 21 18 Rate Respiratory Rate [Bilateral Throughout] Blood Pressure 148/83 125/72 125/72 O2 Sat by Pulse 97 97 96 Oximetry 03/26/21 03/26/21 03/26/21 11:15 11:30 11:45 Temperature Pulse Rate 106 H 104 H 104 H Pulse Rate [ Bilateral Throughout] Pulse Rate [ From Monitor] Respiratory 20 19 19 Rate Respiratory Rate [Bilateral Throughout] Blood Pressure 117/73 113/68 115/66 O2 Sat by Pulse 96 96 96 Oximetry 03/26/21 03/26/21 03/26/21 12:00 12:15 12:23 Temperature Pulse Rate 103 H 102 H 102 H Pulse Rate [ Bilateral Throughout] Pulse Rate [ 103 H From Monitor] Respiratory 18 19 19 Rate Respiratory Rate [Bilateral Throughout] Blood Pressure 127/70 123/71 123/71 O2 Sat by Pulse 96 96 96 Oximetry 03/26/21 03/26/21 03/26/21 12:30 12:45 13:00 Temperature Pulse Rate 101 H 101 H 100 H Pulse Rate [ Bilateral Throughout] Pulse Rate [ From Monitor] Respiratory 17 17 17 Rate Respiratory Rate [Bilateral Throughout] Blood Pressure 127/68 116/71 119/71 O2 Sat by Pulse 96 97 97 Oximetry 03/26/21 13:52 Temperature Pulse Rate 104 H Pulse Rate [ Bilateral Throughout] Pulse Rate [ From Monitor] Respiratory Rate Respiratory Rate [Bilateral Throughout] Blood Pressure 127/72 O2 Sat by Pulse Oximetry Constitutional: no acute distress (sedated), other (elderly obese male with mi ldly increased respiratory effort at rest on MVS) Eyes: non-icteric ENT: oropharynx moist, other (ETT 24 cm CHAITANYA) Neck: supple, no lymphadenopathy, no JVD, other (large circumference) Effort: normal Ascultation: Bilateral: diminished breath sounds, rhonchi Percussion: Bilateral: not dull Cardiovascular: regular rate and rhythm, other (tachycardia, S1,S2) Gastrointestinal: normoactive bowel sounds, soft, non-tender, non-distended (protuberant) Integumentary: normal Extremities: no cyanosis, pulses normal, no ischemia or petechiae, edema Neurologic: non-focal exam (grossly), pupils equal and round, unable to assess, other (sedated) Psychiatric: other (unable to assess re: AMS) CBC and BMP: 03/26/21 07:09 03/26/21 07:09 ABG, PT/INR, D-dimer: ABG ABG pH 7.353 pH Units (7.350-7.450) 03/25/21 12:35 POC ABG pCO2 71.9 mmHg (32.0-48.0) H 03/12/21 21:54 ABG pCO2 61.9 mm Hg 03/25/21 12:35 POC ABG pO2 53.6 mmHg (83-108) L 03/12/21 21:54 ABG pO2 100.5 mm Hg (80.0-90.0) H 03/25/21 12:35 POC ABG HCO3 30.0 03/12/21 21:54 ABG O2 Saturation 97.3 % (95.0-99.0) 03/25/21 12:35 PT/INR, D-dimer PT 16.1 Sec. (12.2-14.9) H 03/08/21 20:24 INR 1.17 (0.87-1.13) H 03/08/21 20:24 D-Dimer 1359.12 ng/mlDDU (0-234) H 03/17/21 04:40 Abnormal lab findings: Abnormal Labs 03/08/21 03/08/21 03/08/21 20:24 20:24 20:24 WBC 22.6 H RBC 5.44 H Hgb 15.7 H Hct 49.2 H MCV MCHC RDW Plt Count Lymph % (Auto) [place] % (Auto) [place] # (Auto) Seg Neutrophils % Seg Neuts % (Manual) 83.0 H Lymphocytes % (Manual) 9.0 L Monocytes % (Manual) 8.0 H Nucleated RBC % Seg Neutrophils # Seg Neutrophils # Man 18.8 H Lymphocytes # (Manual) Monocytes # (Manual) 1.8 H PT 16.1 H INR 1.17 H D-Dimer > 05168 H ABG pH POC ABG pCO2 POC ABG pO2 ABG pO2 ABG HCO3 ABG O2 Saturation ABG Base Excess ABG Hemoglobin ABG Oxyhemoglobin ABG Sodium ABG Potassium ABG Glucose Oxyhemoglobin Sodium 136 L Potassium Chloride 93.9 L Carbon Dioxide BUN 29 H Creatinine Glucose 208 H POC Glucose Lactic Acid Phosphorus Magnesium Ferritin Lactate Dehydrogenase 624 H C-Reactive Protein 18.00 H NT-Pro-B Natriuret Pep 1053 H Total Protein Albumin Triglycerides Arterial Blood Glucose Ur Specific [place] Coronavirus (PCR) 03/08/21 03/08/21 03/09/21 20:24 20:24 04:10 WBC RBC Hgb Hct MCV MCHC RDW Plt Count Lymph % (Auto) [place] % (Auto) [place] # (Auto) Seg Neutrophils % Seg Neuts % (Manual) Lymphocytes % (Manual) Monocytes % (Manual) Nucleated RBC % Seg Neutrophils # Seg Neutrophils # Man Lymphocytes # (Manual) Monocytes # (Manual) PT INR D-Dimer ABG pH POC ABG pCO2 POC ABG pO2 ABG pO2 ABG HCO3 ABG O2 Saturation ABG Base Excess ABG Hemoglobin ABG Oxyhemoglobin ABG Sodium ABG Potassium ABG Glucose Oxyhemoglobin Sodium Potassium Chloride Carbon Dioxide BUN Creatinine Glucose POC Glucose Lactic Acid 2.10 H* Phosphorus Magnesium Ferritin 877.5 H Lactate Dehydrogenase C-Reactive Protein NT-Pro-B Natriuret Pep Total Protein Albumin Triglycerides Arterial Blood Glucose Ur Specific [place] 1.041 H Coronavirus (PCR) 03/09/21 03/09/21 03/09/21 07:46 08:00 13:01 WBC RBC Hgb Hct MCV MCHC RDW Plt Count Lymph % (Auto) [place] % (Auto) [place] # (Auto) Seg Neutrophils % Seg Neuts % (Manual) Lymphocytes % (Manual) Monocytes % (Manual) Nucleated RBC % Seg Neutrophils # Seg Neutrophils # Man Lymphocytes # (Manual) Monocytes # (Manual) PT INR D-Dimer ABG pH POC ABG pCO2 POC ABG pO2 ABG pO2 ABG HCO3 ABG O2 Saturation ABG Base Excess ABG Hemoglobin ABG Oxyhemoglobin ABG Sodium ABG Potassium ABG Glucose Oxyhemoglobin Sodium Potassium Chloride Carbon Dioxide BUN Creatinine Glucose POC Glucose 191 H 182 H Lactic Acid Phosphorus Magnesium Ferritin Lactate Dehydrogenase C-Reactive Protein NT-Pro-B Natriuret Pep Total Protein Albumin Triglycerides Arterial Blood Glucose Ur Specific [place] Coronavirus (PCR) Positive A 03/09/21 03/09/21 03/09/21 15:19 17:48 18:10 WBC RBC Hgb Hct MCV MCHC RDW Plt Count Lymph % (Auto) [place] % (Auto) [place] # (Auto) Seg Neutrophils % Seg Neuts % (Manual) Lymphocytes % (Manual) Monocytes % (Manual) Nucleated RBC % Seg Neutrophils # Seg Neutrophils # Man Lymphocytes # (Manual) Monocytes # (Manual) PT INR D-Dimer ABG pH POC ABG pCO2 POC ABG pO2 ABG pO2 47.3 L ABG HCO3 26.3 H ABG O2 Saturation 83.7 L ABG Base Excess ABG Hemoglobin ABG Oxyhemoglobin ABG Sodium ABG Potassium ABG Glucose Oxyhemoglobin 82.1 L Sodium Potassium Chloride Carbon Dioxide BUN 29 H Creatinine Glucose 214 H POC Glucose 194 H Lactic Acid Phosphorus Magnesium Ferritin Lactate Dehydrogenase C-Reactive Protein NT-Pro-B Natriuret Pep Total Protein Albumin 3.4 L Triglycerides Arterial Blood Glucose Ur Specific [place] Coronavirus (PCR) 03/09/21 03/10/21 03/10/21 20:40 04:29 04:29 WBC 20.6 H RBC 5.07 H Hgb Hct 46.2 H MCV MCHC RDW Plt Count Lymph % (Auto) [place] % (Auto) [place] # (Auto) Seg Neutrophils % Seg Neuts % (Manual) 94.0 H Lymphocytes % (Manual) 1.0 L Monocytes % (Manual) Nucleated RBC % 3.0 H Seg Neutrophils # Seg Neutrophils # Man 19.4 H Lymphocytes # (Manual) 0.2 L Monocytes # (Manual) 1.0 H PT INR D-Dimer ABG pH POC ABG pCO2 POC ABG pO2 ABG pO2 ABG HCO3 ABG O2 Saturation ABG Base Excess ABG Hemoglobin ABG Oxyhemoglobin ABG Sodium ABG Potassium ABG Glucose Oxyhemoglobin Sodium Potassium Chloride Carbon Dioxide BUN 29 H Creatinine Glucose 188 H POC Glucose 176 H Lactic Acid Phosphorus Magnesium Ferritin Lactate Dehydrogenase C-Reactive Protein NT-Pro-B Natriuret Pep Total Protein Albumin 3.3 L Triglycerides Arterial Blood Glucose Ur Specific [place] Coronavirus (PCR) 03/10/21 03/10/21 03/10/21 05:22 10:27 15:25 WBC RBC Hgb Hct MCV MCHC RDW Plt Count Lymph % (Auto) [place] % (Auto) [place] # (Auto) Seg Neutrophils % Seg Neuts % (Manual) Lymphocytes % (Manual) Monocytes % (Manual) Nucleated RBC % Seg Neutrophils # Seg Neutrophils # Man Lymphocytes # (Manual) Monocytes # (Manual) PT INR D-Dimer ABG pH 7.488 H 7.488 H POC ABG pCO2 POC ABG pO2 ABG pO2 47.7 L 50.5 L ABG HCO3 ABG O2 Saturation 86.2 L 87.9 L ABG Base Excess ABG Hemoglobin ABG Oxyhemoglobin ABG Sodium ABG Potassium ABG Glucose Oxyhemoglobin 84.6 L 86.2 L Sodium Potassium Chloride Carbon Dioxide BUN Creatinine Glucose POC Glucose 155 H Lactic Acid Phosphorus Magnesium Ferritin Lactate Dehydrogenase C-Reactive Protein NT-Pro-B Natriuret Pep Total Protein Albumin Triglycerides Arterial Blood Glucose Ur Specific [place] Coronavirus (PCR) 03/10/21 03/10/21 03/11/21 18:10 18:55 00:07 WBC RBC Hgb Hct MCV MCHC RDW Plt Count Lymph % (Auto) [place] % (Auto) [place] # (Auto) Seg Neutrophils % Seg Neuts % (Manual) Lymphocytes % (Manual) Monocytes % (Manual) Nucleated RBC % Seg Neutrophils # Seg Neutrophils # Man Lymphocytes # (Manual) Monocytes # (Manual) PT INR D-Dimer ABG pH 7.343 L POC ABG pCO2 POC ABG pO2 ABG pO2 60.4 L ABG HCO3 27.9 H ABG O2 Saturation 88.7 L ABG Base Excess ABG Hemoglobin ABG Oxyhemoglobin ABG Sodium ABG Potassium ABG Glucose Oxyhemoglobin 86.9 L Sodium Potassium Chloride Carbon Dioxide BUN Creatinine Glucose POC Glucose 187 H 139 H Lactic Acid Phosphorus Magnesium Ferritin Lactate Dehydrogenase C-Reactive Protein NT-Pro-B Natriuret Pep Total Protein Albumin Triglycerides Arterial Blood Glucose Ur Specific [place] Coronavirus (PCR) 03/11/21 03/11/21 03/11/21 02:09 04:28 08:06 WBC RBC Hgb Hct MCV MCHC RDW Plt Count Lymph % (Auto) [place] % (Auto) [place] # (Auto) Seg Neutrophils % Seg Neuts % (Manual) Lymphocytes % (Manual) Monocytes % (Manual) Nucleated RBC % Seg Neutrophils # Seg Neutrophils # Man Lymphocytes # (Manual) Monocytes # (Manual) PT INR D-Dimer ABG pH 7.277 L POC ABG pCO2 55.9 H POC ABG pO2 54.4 L ABG pO2 ABG HCO3 ABG O2 Saturation ABG Base Excess ABG Hemoglobin ABG Oxyhemoglobin 83.0 L ABG Sodium ABG Potassium 4.8 H ABG Glucose 180 H Oxyhemoglobin Sodium Potassium Chloride Carbon Dioxide BUN 38 H Creatinine Glucose 249 H POC Glucose 278 H Lactic Acid Phosphorus Magnesium Ferritin Lactate Dehydrogenase C-Reactive Protein NT-Pro-B Natriuret Pep Total Protein Albumin 3.2 L Triglycerides Arterial Blood Glucose 180 H Ur Specific [place] Coronavirus (PCR) 03/11/21 03/11/21 03/11/21 11:29 15:06 15:48 WBC RBC Hgb Hct MCV MCHC RDW Plt Count Lymph % (Auto) [place] % (Auto) [place] # (Auto) Seg Neutrophils % Seg Neuts % (Manual) Lymphocytes % (Manual) Monocytes % (Manual) Nucleated RBC % Seg Neutrophils # Seg Neutrophils # Man Lymphocytes # (Manual) Monocytes # (Manual) PT INR D-Dimer ABG pH 7.260 L POC ABG pCO2 POC ABG pO2 ABG pO2 53.5 L ABG HCO3 29.5 H ABG O2 Saturation 84.0 L ABG Base Excess ABG Hemoglobin ABG Oxyhemoglobin ABG Sodium ABG Potassium ABG Glucose Oxyhemoglobin 82.3 L Sodium Potassium Chloride Carbon Dioxide BUN Creatinine Glucose POC Glucose 288 H 295 H Lactic Acid Phosphorus Magnesium Ferritin Lactate Dehydrogenase C-Reactive Protein NT-Pro-B Natriuret Pep Total Protein Albumin Triglycerides Arterial Blood Glucose Ur Specific [place] Coronavirus (PCR) 03/12/21 03/12/21 03/12/21 00:01 05:24 08:03 WBC RBC Hgb Hct MCV MCHC RDW Plt Count Lymph % (Auto) [place] % (Auto) [place] # (Auto) Seg Neutrophils % Seg Neuts % (Manual) Lymphocytes % (Manual) Monocytes % (Manual) Nucleated RBC % Seg Neutrophils # Seg Neutrophils # Man Lymphocytes # (Manual) Monocytes # (Manual) PT INR D-Dimer ABG pH POC ABG pCO2 POC ABG pO2 ABG pO2 ABG HCO3 ABG O2 Saturation ABG Base Excess ABG Hemoglobin ABG Oxyhemoglobin ABG Sodium ABG Potassium ABG Glucose Oxyhemoglobin Sodium 135 L Potassium Chloride Carbon Dioxide BUN 48 H Creatinine Glucose 358 H POC Glucose 304 H 310 H Lactic Acid Phosphorus Magnesium Ferritin Lactate Dehydrogenase C-Reactive Protein NT-Pro-B Natriuret Pep Total Protein 6.0 L Albumin 2.9 L Triglycerides Arterial Blood Glucose Ur Specific [place] Coronavirus (PCR) 03/12/21 03/12/21 03/12/21 08:03 10:43 11:31 WBC 14.6 H RBC Hgb Hct MCV MCHC RDW Plt Count Lymph % (Auto) [place] % (Auto) [place] # (Auto) Seg Neutrophils % Seg Neuts % (Manual) Lymphocytes % (Manual) Monocytes % (Manual) Nucleated RBC % Seg Neutrophils # Seg Neutrophils # Man Lymphocytes # (Manual) Monocytes # (Manual) PT INR D-Dimer ABG pH 7.248 L POC ABG pCO2 POC ABG pO2 ABG pO2 73.7 L ABG HCO3 32.0 H ABG O2 Saturation 93.9 L ABG Base Excess ABG Hemoglobin ABG Oxyhemoglobin ABG Sodium ABG Potassium ABG Glucose Oxyhemoglobin 92.1 L Sodium Potassium Chloride Carbon Dioxide BUN Creatinine Glucose POC Glucose 359 H Lactic Acid Phosphorus Magnesium Ferritin Lactate Dehydrogenase C-Reactive Protein NT-Pro-B Natriuret Pep Total Protein Albumin Triglycerides Arterial Blood Glucose Ur Specific [place] Coronavirus (PCR) 03/12/21 03/12/21 03/13/21 17:20 21:54 00:02 WBC RBC Hgb Hct MCV MCHC RDW Plt Count Lymph % (Auto) [place] % (Auto) [place] # (Auto) Seg Neutrophils % Seg Neuts % (Manual) Lymphocytes % (Manual) Monocytes % (Manual) Nucleated RBC % Seg Neutrophils # Seg Neutrophils # Man Lymphocytes # (Manual) Monocytes # (Manual) PT INR D-Dimer ABG pH 7.238 L POC ABG pCO2 71.9 H POC ABG pO2 53.6 L ABG pO2 ABG HCO3 ABG O2 Saturation ABG Base Excess ABG Hemoglobin ABG Oxyhemoglobin 84.8 L ABG Sodium 134.2 L ABG Potassium 4.9 H ABG Glucose 306 H Oxyhemoglobin Sodium Potassium Chloride Carbon Dioxide BUN Creatinine Glucose POC Glucose 374 H 308 H Lactic Acid Phosphorus Magnesium Ferritin Lactate Dehydrogenase C-Reactive Protein NT-Pro-B Natriuret Pep Total Protein Albumin Triglycerides Arterial Blood Glucose 306 H Ur Specific [place] Coronavirus (PCR) 03/13/21 03/13/21 03/13/21 05:22 05:44 05:44 WBC 13.9 H RBC Hgb Hct MCV MCHC RDW Plt Count Lymph % (Auto) [place] % (Auto) [place] # (Auto) Seg Neutrophils % Seg Neuts % (Manual) Lymphocytes % (Manual) Monocytes % (Manual) Nucleated RBC % Seg Neutrophils # Seg Neutrophils # Man Lymphocytes # (Manual) Monocytes # (Manual) PT INR D-Dimer 3567.97 H ABG pH POC ABG pCO2 POC ABG pO2 ABG pO2 ABG HCO3 ABG O2 Saturation ABG Base Excess ABG Hemoglobin ABG Oxyhemoglobin ABG Sodium ABG Potassium ABG Glucose Oxyhemoglobin Sodium Potassium Chloride Carbon Dioxide BUN Creatinine Glucose POC Glucose 316 H Lactic Acid Phosphorus Magnesium Ferritin Lactate Dehydrogenase C-Reactive Protein NT-Pro-B Natriuret Pep Total Protein Albumin Triglycerides Arterial Blood Glucose Ur Specific [place] Coronavirus (PCR) 03/13/21 03/13/21 03/13/21 05:44 05:44 11:15 WBC RBC Hgb Hct MCV MCHC RDW Plt Count Lymph % (Auto) [place] % (Auto) [place] # (Auto) Seg Neutrophils % Seg Neuts % (Manual) Lymphocytes % (Manual) Monocytes % (Manual) Nucleated RBC % Seg Neutrophils # Seg Neutrophils # Man Lymphocytes # (Manual) Monocytes # (Manual) PT INR D-Dimer ABG pH 7.310 L POC ABG pCO2 POC ABG pO2 ABG pO2 52.3 L ABG HCO3 34.1 H ABG O2 Saturation 86.8 L ABG Base Excess 5.5 H ABG Hemoglobin 13.8 L ABG Oxyhemoglobin ABG Sodium ABG Potassium ABG Glucose Oxyhemoglobin 85.1 L Sodium Potassium Chloride Carbon Dioxide BUN Creatinine Glucose POC Glucose Lactic Acid Phosphorus Magnesium Ferritin 858.7 H Lactate Dehydrogenase 348 H C-Reactive Protein 2.80 H NT-Pro-B Natriuret Pep Total Protein Albumin Triglycerides Arterial Blood Glucose Ur Specific [place] Coronavirus (PCR) 03/13/21 03/13/21 03/13/21 11:21 15:47 19:23 WBC RBC Hgb Hct MCV MCHC RDW Plt Count Lymph % (Auto) [place] % (Auto) [place] # (Auto) Seg Neutrophils % Seg Neuts % (Manual) Lymphocytes % (Manual) Monocytes % (Manual) Nucleated RBC % Seg Neutrophils # Seg Neutrophils # Man Lymphocytes # (Manual) Monocytes # (Manual) PT INR D-Dimer ABG pH POC ABG pCO2 POC ABG pO2 ABG pO2 ABG HCO3 ABG O2 Saturation ABG Base Excess ABG Hemoglobin ABG Oxyhemoglobin ABG Sodium ABG Potassium ABG Glucose Oxyhemoglobin Sodium 136 L Potassium 5.9 H Chloride Carbon Dioxide BUN 50 H Creatinine Glucose 397 H POC Glucose 322 H 317 H Lactic Acid Phosphorus Magnesium Ferritin Lactate Dehydrogenase C-Reactive Protein NT-Pro-B Natriuret Pep Total Protein Albumin Triglycerides Arterial Blood Glucose Ur Specific [place] Coronavirus (PCR) 03/13/21 03/14/21 03/14/21 23:46 05:32 05:50 WBC 11.6 H RBC Hgb Hct MCV MCHC RDW Plt Count Lymph % (Auto) [place] % (Auto) [place] # (Auto) Seg Neutrophils % Seg Neuts % (Manual) Lymphocytes % (Manual) Monocytes % (Manual) Nucleated RBC % Seg Neutrophils # Seg Neutrophils # Man Lymphocytes # (Manual) Monocytes # (Manual) PT INR D-Dimer ABG pH POC ABG pCO2 POC ABG pO2 ABG pO2 ABG HCO3 ABG O2 Saturation ABG Base Excess ABG Hemoglobin ABG Oxyhemoglobin ABG Sodium ABG Potassium ABG Glucose Oxyhemoglobin Sodium Potassium Chloride Carbon Dioxide BUN Creatinine Glucose POC Glucose 332 H 316 H Lactic Acid Phosphorus Magnesium Ferritin Lactate Dehydrogenase C-Reactive Protein NT-Pro-B Natriuret Pep Total Protein Albumin Triglycerides Arterial Blood Glucose Ur Specific [place] Coronavirus (PCR) 03/14/21 03/14/21 03/14/21 05:50 11:33 16:53 WBC RBC Hgb Hct MCV MCHC RDW Plt Count Lymph % (Auto) [place] % (Auto) [place] # (Auto) Seg Neutrophils % Seg Neuts % (Manual) Lymphocytes % (Manual) Monocytes % (Manual) Nucleated RBC % Seg Neutrophils # Seg Neutrophils # Man Lymphocytes # (Manual) Monocytes # (Manual) PT INR D-Dimer ABG pH POC ABG pCO2 POC ABG pO2 ABG pO2 ABG HCO3 ABG O2 Saturation ABG Base Excess ABG Hemoglobin ABG Oxyhemoglobin ABG Sodium ABG Potassium ABG Glucose Oxyhemoglobin Sodium Potassium 5.9 H Chloride Carbon Dioxide 31 H BUN 48 H Creatinine Glucose 380 H POC Glucose 315 H 235 H Lactic Acid Phosphorus Magnesium 3.40 H Ferritin Lactate Dehydrogenase C-Reactive Protein NT-Pro-B Natriuret Pep Total Protein Albumin Triglycerides Arterial Blood Glucose Ur Specific [place] Coronavirus (PCR) 03/14/21 03/14/21 03/15/21 18:34 23:27 01:22 WBC RBC Hgb Hct 46.3 H MCV MCHC RDW Plt Count Lymph % (Auto) [place] % (Auto) [place] # (Auto) Seg Neutrophils % Seg Neuts % (Manual) Lymphocytes % (Manual) Monocytes % (Manual) Nucleated RBC % Seg Neutrophils # Seg Neutrophils # Man Lymphocytes # (Manual) Monocytes # (Manual) PT INR D-Dimer ABG pH POC ABG pCO2 POC ABG pO2 ABG pO2 ABG HCO3 ABG O2 Saturation ABG Base Excess ABG Hemoglobin ABG Oxyhemoglobin ABG Sodium ABG Potassium ABG Glucose Oxyhemoglobin Sodium 146 H Potassium Chloride Carbon Dioxide 34 H BUN 49 H Creatinine Glucose 285 H POC Glucose 203 H Lactic Acid Phosphorus Magnesium Ferritin Lactate Dehydrogenase C-Reactive Protein NT-Pro-B Natriuret Pep Total Protein Albumin Triglycerides Arterial Blood Glucose Ur Specific [place] Coronavirus (PCR) 03/15/21 03/15/21 03/15/21 04:00 06:06 06:06 WBC RBC Hgb Hct MCV MCHC RDW Plt Count Lymph % (Auto) [place] % (Auto) [place] # (Auto) Seg Neutrophils % Seg Neuts % (Manual) Lymphocytes % (Manual) Monocytes % (Manual) Nucleated RBC % Seg Neutrophils # Seg Neutrophils # Man Lymphocytes # (Manual) Monocytes # (Manual) PT INR D-Dimer 1781.79 H ABG pH POC ABG pCO2 POC ABG pO2 ABG pO2 ABG HCO3 ABG O2 Saturation ABG Base Excess ABG Hemoglobin ABG Oxyhemoglobin ABG Sodium ABG Potassium ABG Glucose Oxyhemoglobin Sodium 148 H Potassium 5.7 H D Chloride 108.0 H Carbon Dioxide 31 H BUN 46 H Creatinine Glucose 139 H POC Glucose Lactic Acid Phosphorus 4.80 H D Magnesium 3.00 H Ferritin 976.4 H Lactate Dehydrogenase 630 H C-Reactive Protein NT-Pro-B Natriuret Pep Total Protein Albumin Triglycerides Arterial Blood Glucose Ur Specific [place] Coronavirus (PCR) 03/15/21 03/15/21 03/15/21 11:56 14:05 17:09 WBC RBC Hgb Hct MCV MCHC RDW Plt Count Lymph % (Auto) [place] % (Auto) [place] # (Auto) Seg Neutrophils % Seg Neuts % (Manual) Lymphocytes % (Manual) Monocytes % (Manual) Nucleated RBC % Seg Neutrophils # Seg Neutrophils # Man Lymphocytes # (Manual) Monocytes # (Manual) PT INR D-Dimer ABG pH POC ABG pCO2 POC ABG pO2 ABG pO2 52.1 L ABG HCO3 36.6 H ABG O2 Saturation 87.6 L ABG Base Excess 9.5 H ABG Hemoglobin ABG Oxyhemoglobin ABG Sodium ABG Potassium ABG Glucose Oxyhemoglobin 85.7 L Sodium Potassium Chloride Carbon Dioxide BUN Creatinine Glucose POC Glucose 219 H 263 H Lactic Acid Phosphorus Magnesium Ferritin Lactate Dehydrogenase C-Reactive Protein NT-Pro-B Natriuret Pep Total Protein Albumin Triglycerides Arterial Blood Glucose Ur Specific [place] Coronavirus (PCR) 03/16/21 03/16/21 03/16/21 00:32 04:11 04:11 WBC 11.9 H RBC Hgb Hct MCV MCHC 30 L RDW Plt Count Lymph % (Auto) [place] % (Auto) [place] # (Auto) Seg Neutrophils % Seg Neuts % (Manual) Lymphocytes % (Manual) Monocytes % (Manual) Nucleated RBC % Seg Neutrophils # Seg Neutrophils # Man Lymphocytes # (Manual) Monocytes # (Manual) PT INR D-Dimer ABG pH POC ABG pCO2 POC ABG pO2 ABG pO2 ABG HCO3 ABG O2 Saturation ABG Base Excess ABG Hemoglobin ABG Oxyhemoglobin ABG Sodium ABG Potassium ABG Glucose Oxyhemoglobin Sodium 151 H Potassium Chloride Carbon Dioxide 35 H BUN 48 H Creatinine Glucose 152 H POC Glucose 165 H Lactic Acid Phosphorus Magnesium Ferritin Lactate Dehydrogenase C-Reactive Protein NT-Pro-B Natriuret Pep Total Protein Albumin Triglycerides Arterial Blood Glucose Ur Specific [place] Coronavirus (PCR) 03/16/21 03/16/21 03/16/21 04:11 05:26 11:35 WBC RBC Hgb Hct MCV MCHC RDW Plt Count Lymph % (Auto) [place] % (Auto) [place] # (Auto) Seg Neutrophils % Seg Neuts % (Manual) Lymphocytes % (Manual) Monocytes % (Manual) Nucleated RBC % Seg Neutrophils # Seg Neutrophils # Man Lymphocytes # (Manual) Monocytes # (Manual) PT INR D-Dimer ABG pH POC ABG pCO2 POC ABG pO2 ABG pO2 ABG HCO3 ABG O2 Saturation ABG Base Excess ABG Hemoglobin ABG Oxyhemoglobin ABG Sodium ABG Potassium ABG Glucose Oxyhemoglobin Sodium Potassium Chloride Carbon Dioxide BUN Creatinine Glucose POC Glucose 162 H 187 H Lactic Acid Phosphorus Magnesium Ferritin Lactate Dehydrogenase C-Reactive Protein NT-Pro-B Natriuret Pep Total Protein Albumin Triglycerides 267 H Arterial Blood Glucose Ur Specific [place] Coronavirus (PCR) 03/16/21 03/16/21 03/16/21 17:29 22:25 23:22 WBC RBC Hgb Hct MCV MCHC RDW Plt Count Lymph % (Auto) [place] % (Auto) [place] # (Auto) Seg Neutrophils % Seg Neuts % (Manual) Lymphocytes % (Manual) Monocytes % (Manual) Nucleated RBC % Seg Neutrophils # Seg Neutrophils # Man Lymphocytes # (Manual) Monocytes # (Manual) PT INR D-Dimer ABG pH POC ABG pCO2 POC ABG pO2 ABG pO2 ABG HCO3 ABG O2 Saturation ABG Base Excess ABG Hemoglobin ABG Oxyhemoglobin ABG Sodium ABG Potassium ABG Glucose Oxyhemoglobin Sodium Potassium Chloride Carbon Dioxide BUN Creatinine Glucose POC Glucose 237 H 165 H 189 H Lactic Acid Phosphorus Magnesium Ferritin Lactate Dehydrogenase C-Reactive Protein NT-Pro-B Natriuret Pep Total Protein Albumin Triglycerides Arterial Blood Glucose Ur Specific [place] Coronavirus (PCR) 03/17/21 03/17/21 03/17/21 04:40 04:40 04:40 WBC 14.1 H RBC Hgb Hct MCV MCHC RDW 15.3 H Plt Count Lymph % (Auto) 12.6 L [place] % (Auto) 11.3 H [place] # (Auto) 1.6 H Seg Neutrophils % 74.9 H Seg Neuts % (Manual) Lymphocytes % (Manual) Monocytes % (Manual) Nucleated RBC % Seg Neutrophils # 10.5 H Seg Neutrophils # Man Lymphocytes # (Manual) Monocytes # (Manual) PT INR D-Dimer 1359.12 H ABG pH POC ABG pCO2 POC ABG pO2 ABG pO2 ABG HCO3 ABG O2 Saturation ABG Base Excess ABG Hemoglobin ABG Oxyhemoglobin ABG Sodium ABG Potassium ABG Glucose Oxyhemoglobin Sodium 148 H Potassium Chloride 107.5 H Carbon Dioxide 33 H BUN 42 H Creatinine Glucose 183 H POC Glucose Lactic Acid Phosphorus Magnesium 2.70 H Ferritin Lactate Dehydrogenase C-Reactive Protein NT-Pro-B Natriuret Pep Total Protein Albumin Triglycerides Arterial Blood Glucose Ur Specific [place] Coronavirus (PCR) 03/17/21 03/17/21 03/17/21 05:53 11:05 11:51 WBC RBC Hgb Hct MCV MCHC RDW Plt Count Lymph % (Auto) [place] % (Auto) [place] # (Auto) Seg Neutrophils % Seg Neuts % (Manual) Lymphocytes % (Manual) Monocytes % (Manual) Nucleated RBC % Seg Neutrophils # Seg Neutrophils # Man Lymphocytes # (Manual) Monocytes # (Manual) PT INR D-Dimer ABG pH POC ABG pCO2 POC ABG pO2 ABG pO2 ABG HCO3 35.7 H ABG O2 Saturation ABG Base Excess 8.7 H ABG Hemoglobin ABG Oxyhemoglobin ABG Sodium ABG Potassium ABG Glucose Oxyhemoglobin 94.2 L Sodium Potassium Chloride Carbon Dioxide BUN Creatinine Glucose POC Glucose 176 H 197 H Lactic Acid Phosphorus Magnesium Ferritin Lactate Dehydrogenase C-Reactive Protein NT-Pro-B Natriuret Pep Total Protein Albumin Triglycerides Arterial Blood Glucose Ur Specific [place] Coronavirus (PCR) 03/17/21 03/17/21 03/17/21 16:54 21:10 23:33 WBC RBC Hgb Hct MCV MCHC RDW Plt Count Lymph % (Auto) [place] % (Auto) [place] # (Auto) Seg Neutrophils % Seg Neuts % (Manual) Lymphocytes % (Manual) Monocytes % (Manual) Nucleated RBC % Seg Neutrophils # Seg Neutrophils # Man Lymphocytes # (Manual) Monocytes # (Manual) PT INR D-Dimer ABG pH POC ABG pCO2 POC ABG pO2 ABG pO2 ABG HCO3 ABG O2 Saturation ABG Base Excess ABG Hemoglobin ABG Oxyhemoglobin ABG Sodium ABG Potassium ABG Glucose Oxyhemoglobin Sodium Potassium Chloride Carbon Dioxide BUN Creatinine Glucose POC Glucose 135 H 160 H 138 H Lactic Acid Phosphorus Magnesium Ferritin Lactate Dehydrogenase C-Reactive Protein NT-Pro-B Natriuret Pep Total Protein Albumin Triglycerides Arterial Blood Glucose Ur Specific [place] Coronavirus (PCR) 03/18/21 03/18/21 03/18/21 04:18 04:50 05:43 WBC RBC Hgb Hct MCV MCHC RDW Plt Count Lymph % (Auto) [place] % (Auto) [place] # (Auto) Seg Neutrophils % Seg Neuts % (Manual) Lymphocytes % (Manual) Monocytes % (Manual) Nucleated RBC % Seg Neutrophils # Seg Neutrophils # Man Lymphocytes # (Manual) Monocytes # (Manual) PT INR D-Dimer ABG pH POC ABG pCO2 POC ABG pO2 ABG pO2 59.8 L ABG HCO3 36.5 H ABG O2 Saturation 90.7 L ABG Base Excess 9.4 H ABG Hemoglobin 12.0 L ABG Oxyhemoglobin ABG Sodium ABG Potassium ABG Glucose Oxyhemoglobin 88.9 L Sodium Potassium Chloride 107.2 H Carbon Dioxide 34 H BUN 38 H Creatinine 0.7 L Glucose 136 H POC Glucose 128 H Lactic Acid Phosphorus Magnesium Ferritin Lactate Dehydrogenase C-Reactive Protein NT-Pro-B Natriuret Pep Total Protein Albumin Triglycerides Arterial Blood Glucose Ur Specific [place] Coronavirus (PCR) 03/18/21 03/18/21 03/18/21 11:20 17:35 23:35 WBC RBC Hgb Hct MCV MCHC RDW Plt Count Lymph % (Auto) [place] % (Auto) [place] # (Auto) Seg Neutrophils % Seg Neuts % (Manual) Lymphocytes % (Manual) Monocytes % (Manual) Nucleated RBC % Seg Neutrophils # Seg Neutrophils # Man Lymphocytes # (Manual) Monocytes # (Manual) PT INR D-Dimer ABG pH POC ABG pCO2 POC ABG pO2 ABG pO2 70.7 L ABG HCO3 33.6 H ABG O2 Saturation ABG Base Excess 8.0 H ABG Hemoglobin ABG Oxyhemoglobin ABG Sodium ABG Potassium ABG Glucose Oxyhemoglobin 93.7 L Sodium Potassium Chloride Carbon Dioxide BUN Creatinine Glucose POC Glucose 189 H 144 H Lactic Acid Phosphorus Magnesium Ferritin Lactate Dehydrogenase C-Reactive Protein NT-Pro-B Natriuret Pep Total Protein Albumin Triglycerides Arterial Blood Glucose Ur Specific [place] Coronavirus (PCR) 03/19/21 03/19/21 03/19/21 02:35 04:20 04:20 WBC 14.0 H RBC Hgb Hct MCV MCHC RDW Plt Count Lymph % (Auto) [place] % (Auto) [place] # (Auto) Seg Neutrophils % Seg Neuts % (Manual) Lymphocytes % (Manual) Monocytes % (Manual) Nucleated RBC % Seg Neutrophils # Seg Neutrophils # Man Lymphocytes # (Manual) Monocytes # (Manual) PT INR D-Dimer ABG pH POC ABG pCO2 POC ABG pO2 ABG pO2 ABG HCO3 32.0 H ABG O2 Saturation ABG Base Excess 5.2 H ABG Hemoglobin 13.6 L ABG Oxyhemoglobin ABG Sodium ABG Potassium ABG Glucose Oxyhemoglobin 94.6 L Sodium 146 H Potassium Chloride 109.3 H Carbon Dioxide BUN 36 H Creatinine Glucose 203 H POC Glucose Lactic Acid Phosphorus Magnesium Ferritin Lactate Dehydrogenase C-Reactive Protein NT-Pro-B Natriuret Pep Total Protein Albumin Triglycerides 254 H Arterial Blood Glucose Ur Specific [place] Coronavirus (PCR) 03/19/21 03/19/21 03/19/21 05:45 11:36 23:51 WBC RBC Hgb Hct MCV MCHC RDW Plt Count Lymph % (Auto) [place] % (Auto) [place] # (Auto) Seg Neutrophils % Seg Neuts % (Manual) Lymphocytes % (Manual) Monocytes % (Manual) Nucleated RBC % Seg Neutrophils # Seg Neutrophils # Man Lymphocytes # (Manual) Monocytes # (Manual) PT INR D-Dimer ABG pH POC ABG pCO2 POC ABG pO2 ABG pO2 ABG HCO3 ABG O2 Saturation ABG Base Excess ABG Hemoglobin ABG Oxyhemoglobin ABG Sodium ABG Potassium ABG Glucose Oxyhemoglobin Sodium Potassium Chloride Carbon Dioxide BUN Creatinine Glucose POC Glucose 164 H 172 H 140 H Lactic Acid Phosphorus Magnesium Ferritin Lactate Dehydrogenase C-Reactive Protein NT-Pro-B Natriuret Pep Total Protein Albumin Triglycerides Arterial Blood Glucose Ur Specific [place] Coronavirus (PCR) 03/20/21 03/20/21 03/20/21 03:29 04:45 04:45 WBC RBC Hgb Hct MCV 95 H MCHC RDW 15.7 H Plt Count Lymph % (Auto) [place] % (Auto) [place] # (Auto) Seg Neutrophils % Seg Neuts % (Manual) Lymphocytes % (Manual) Monocytes % (Manual) Nucleated RBC % Seg Neutrophils # Seg Neutrophils # Man Lymphocytes # (Manual) Monocytes # (Manual) PT INR D-Dimer ABG pH 7.349 L POC ABG pCO2 POC ABG pO2 ABG pO2 ABG HCO3 33.7 H ABG O2 Saturation ABG Base Excess 6.4 H ABG Hemoglobin 11.8 L ABG Oxyhemoglobin ABG Sodium ABG Potassium ABG Glucose Oxyhemoglobin 93.9 L Sodium 146 H Potassium 5.5 H Chloride 111.1 H Carbon Dioxide BUN 34 H Creatinine 0.7 L Glucose 145 H POC Glucose Lactic Acid Phosphorus Magnesium 2.50 H Ferritin Lactate Dehydrogenase C-Reactive Protein NT-Pro-B Natriuret Pep Total Protein Albumin Triglycerides Arterial Blood Glucose Ur Specific [place] Coronavirus (PCR) 03/20/21 03/20/21 03/20/21 05:41 09:08 11:54 WBC RBC Hgb Hct MCV MCHC RDW Plt Count Lymph % (Auto) [place] % (Auto) [place] # (Auto) Seg Neutrophils % Seg Neuts % (Manual) Lymphocytes % (Manual) Monocytes % (Manual) Nucleated RBC % Seg Neutrophils # Seg Neutrophils # Man Lymphocytes # (Manual) Monocytes # (Manual) PT INR D-Dimer ABG pH POC ABG pCO2 POC ABG pO2 ABG pO2 ABG HCO3 ABG O2 Saturation ABG Base Excess ABG Hemoglobin ABG Oxyhemoglobin ABG Sodium ABG Potassium ABG Glucose Oxyhemoglobin Sodium Potassium Chloride Carbon Dioxide BUN Creatinine Glucose POC Glucose 108 H 132 H 162 H Lactic Acid Phosphorus Magnesium Ferritin Lactate Dehydrogenase C-Reactive Protein NT-Pro-B Natriuret Pep Total Protein Albumin Triglycerides Arterial Blood Glucose Ur Specific [place] Coronavirus (PCR) 03/20/21 03/21/21 03/21/21 17:28 00:31 04:44 WBC RBC Hgb Hct MCV MCHC RDW Plt Count Lymph % (Auto) [place] % (Auto) [place] # (Auto) Seg Neutrophils % Seg Neuts % (Manual) Lymphocytes % (Manual) Monocytes % (Manual) Nucleated RBC % Seg Neutrophils # Seg Neutrophils # Man Lymphocytes # (Manual) Monocytes # (Manual) PT INR D-Dimer ABG pH POC ABG pCO2 POC ABG pO2 ABG pO2 ABG HCO3 ABG O2 Saturation ABG Base Excess ABG Hemoglobin ABG Oxyhemoglobin ABG Sodium ABG Potassium ABG Glucose Oxyhemoglobin Sodium Potassium Chloride 108.3 H Carbon Dioxide BUN 30 H Creatinine 0.7 L Glucose POC Glucose 160 H 122 H Lactic Acid Phosphorus Magnesium Ferritin Lactate Dehydrogenase C-Reactive Protein NT-Pro-B Natriuret Pep Total Protein Albumin Triglycerides Arterial Blood Glucose Ur Specific [place] Coronavirus (PCR) 03/21/21 03/21/21 03/21/21 09:18 10:09 13:20 WBC RBC Hgb Hct MCV MCHC RDW Plt Count Lymph % (Auto) [place] % (Auto) [place] # (Auto) Seg Neutrophils % Seg Neuts % (Manual) Lymphocytes % (Manual) Monocytes % (Manual) Nucleated RBC % Seg Neutrophils # Seg Neutrophils # Man Lymphocytes # (Manual) Monocytes # (Manual) PT INR D-Dimer ABG pH POC ABG pCO2 POC ABG pO2 ABG pO2 60.7 L ABG HCO3 30.6 H ABG O2 Saturation 93.6 L ABG Base Excess 5.3 H ABG Hemoglobin ABG Oxyhemoglobin ABG Sodium ABG Potassium ABG Glucose Oxyhemoglobin 91.7 L Sodium Potassium Chloride Carbon Dioxide BUN Creatinine Glucose POC Glucose 169 H 122 H Lactic Acid Phosphorus Magnesium Ferritin Lactate Dehydrogenase C-Reactive Protein NT-Pro-B Natriuret Pep Total Protein Albumin Triglycerides Arterial Blood Glucose Ur Specific [place] Coronavirus (PCR) 03/21/21 03/21/21 03/21/21 17:25 22:41 23:52 WBC RBC Hgb Hct MCV MCHC RDW Plt Count Lymph % (Auto) [place] % (Auto) [place] # (Auto) Seg Neutrophils % Seg Neuts % (Manual) Lymphocytes % (Manual) Monocytes % (Manual) Nucleated RBC % Seg Neutrophils # Seg Neutrophils # Man Lymphocytes # (Manual) Monocytes # (Manual) PT INR D-Dimer ABG pH POC ABG pCO2 POC ABG pO2 ABG pO2 ABG HCO3 ABG O2 Saturation ABG Base Excess ABG Hemoglobin ABG Oxyhemoglobin ABG Sodium ABG Potassium ABG Glucose Oxyhemoglobin Sodium Potassium Chloride Carbon Dioxide BUN Creatinine Glucose POC Glucose 121 H 139 H 140 H Lactic Acid Phosphorus Magnesium Ferritin Lactate Dehydrogenase C-Reactive Protein NT-Pro-B Natriuret Pep Total Protein Albumin Triglycerides Arterial Blood Glucose Ur Specific [place] Coronavirus (PCR) 03/22/21 03/22/21 03/22/21 05:58 07:26 07:26 WBC RBC Hgb Hct MCV MCHC 31 L RDW 16.1 H Plt Count Lymph % (Auto) [place] % (Auto) [place] # (Auto) Seg Neutrophils % Seg Neuts % (Manual) Lymphocytes % (Manual) Monocytes % (Manual) Nucleated RBC % Seg Neutrophils # Seg Neutrophils # Man Lymphocytes # (Manual) Monocytes # (Manual) PT INR D-Dimer ABG pH POC ABG pCO2 POC ABG pO2 ABG pO2 ABG HCO3 ABG O2 Saturation ABG Base Excess ABG Hemoglobin ABG Oxyhemoglobin ABG Sodium ABG Potassium ABG Glucose Oxyhemoglobin Sodium Potassium Chloride 108.5 H Carbon Dioxide BUN 44 H Creatinine Glucose 120 H POC Glucose 131 H Lactic Acid Phosphorus 5.80 H Magnesium 2.80 H Ferritin Lactate Dehydrogenase C-Reactive Protein NT-Pro-B Natriuret Pep Total Protein Albumin Triglycerides 305 H Arterial Blood Glucose Ur Specific [place] Coronavirus (PCR) 03/22/21 03/22/21 03/22/21 09:38 11:15 16:01 WBC RBC Hgb Hct MCV MCHC RDW Plt Count Lymph % (Auto) [place] % (Auto) [place] # (Auto) Seg Neutrophils % Seg Neuts % (Manual) Lymphocytes % (Manual) Monocytes % (Manual) Nucleated RBC % Seg Neutrophils # Seg Neutrophils # Man Lymphocytes # (Manual) Monocytes # (Manual) PT INR D-Dimer ABG pH POC ABG pCO2 POC ABG pO2 ABG pO2 70.0 L ABG HCO3 30.0 H ABG O2 Saturation 94.6 L ABG Base Excess 3.6 H ABG Hemoglobin 13.5 L ABG Oxyhemoglobin ABG Sodium ABG Potassium ABG Glucose Oxyhemoglobin 92.5 L Sodium Potassium Chloride Carbon Dioxide BUN Creatinine Glucose POC Glucose 186 H 148 H Lactic Acid Phosphorus Magnesium Ferritin Lactate Dehydrogenase C-Reactive Protein NT-Pro-B Natriuret Pep Total Protein Albumin Triglycerides Arterial Blood Glucose Ur Specific [place] Coronavirus (PCR) 03/22/21 03/22/21 03/23/21 21:13 23:48 07:04 WBC 11.7 H RBC Hgb Hct MCV 95 H MCHC RDW 16.1 H Plt Count Lymph % (Auto) [place] % (Auto) [place] # (Auto) Seg Neutrophils % Seg Neuts % (Manual) Lymphocytes % (Manual) Monocytes % (Manual) Nucleated RBC % Seg Neutrophils # Seg Neutrophils # Man Lymphocytes # (Manual) Monocytes # (Manual) PT INR D-Dimer ABG pH POC ABG pCO2 POC ABG pO2 ABG pO2 ABG HCO3 ABG O2 Saturation ABG Base Excess ABG Hemoglobin ABG Oxyhemoglobin ABG Sodium ABG Potassium ABG Glucose Oxyhemoglobin Sodium Potassium Chloride Carbon Dioxide BUN Creatinine Glucose POC Glucose 121 H 114 H Lactic Acid Phosphorus Magnesium Ferritin Lactate Dehydrogenase C-Reactive Protein NT-Pro-B Natriuret Pep Total Protein Albumin Triglycerides Arterial Blood Glucose Ur Specific [place] Coronavirus (PCR) 03/23/21 03/23/21 03/23/21 07:04 08:35 11:19 WBC RBC Hgb Hct MCV MCHC RDW Plt Count Lymph % (Auto) [place] % (Auto) [place] # (Auto) Seg Neutrophils % Seg Neuts % (Manual) Lymphocytes % (Manual) Monocytes % (Manual) Nucleated RBC % Seg Neutrophils # Seg Neutrophils # Man Lymphocytes # (Manual) Monocytes # (Manual) PT INR D-Dimer ABG pH 7.345 L POC ABG pCO2 POC ABG pO2 ABG pO2 167.9 H ABG HCO3 32.2 H ABG O2 Saturation ABG Base Excess 4.8 H ABG Hemoglobin 13.4 L ABG Oxyhemoglobin ABG Sodium ABG Potassium ABG Glucose Oxyhemoglobin Sodium 148 H Potassium Chloride 111.3 H Carbon Dioxide 31 H BUN 31 H Creatinine Glucose 131 H POC Glucose 165 H Lactic Acid Phosphorus Magnesium 2.50 H Ferritin Lactate Dehydrogenase C-Reactive Protein NT-Pro-B Natriuret Pep Total Protein Albumin Triglycerides Arterial Blood Glucose Ur Specific [place] Coronavirus (PCR) 03/23/21 03/23/21 03/24/21 16:48 20:52 00:07 WBC RBC Hgb Hct MCV MCHC RDW Plt Count Lymph % (Auto) [place] % (Auto) [place] # (Auto) Seg Neutrophils % Seg Neuts % (Manual) Lymphocytes % (Manual) Monocytes % (Manual) Nucleated RBC % Seg Neutrophils # Seg Neutrophils # Man Lymphocytes # (Manual) Monocytes # (Manual) PT INR D-Dimer ABG pH POC ABG pCO2 POC ABG pO2 ABG pO2 ABG HCO3 ABG O2 Saturation ABG Base Excess ABG Hemoglobin ABG Oxyhemoglobin ABG Sodium ABG Potassium ABG Glucose Oxyhemoglobin Sodium Potassium Chloride Carbon Dioxide BUN Creatinine Glucose POC Glucose 160 H 127 H 147 H Lactic Acid Phosphorus Magnesium Ferritin Lactate Dehydrogenase C-Reactive Protein NT-Pro-B Natriuret Pep Total Protein Albumin Triglycerides Arterial Blood Glucose Ur Specific [place] Coronavirus (PCR) 03/24/21 03/24/21 03/24/21 04:34 04:34 05:20 WBC 13.3 H RBC Hgb Hct MCV MCHC 31 L RDW 16.1 H Plt Count Lymph % (Auto) [place] % (Auto) [place] # (Auto) Seg Neutrophils % Seg Neuts % (Manual) Lymphocytes % (Manual) Monocytes % (Manual) Nucleated RBC % Seg Neutrophils # Seg Neutrophils # Man Lymphocytes # (Manual) Monocytes # (Manual) PT INR D-Dimer ABG pH POC ABG pCO2 POC ABG pO2 ABG pO2 ABG HCO3 ABG O2 Saturation ABG Base Excess ABG Hemoglobin ABG Oxyhemoglobin ABG Sodium ABG Potassium ABG Glucose Oxyhemoglobin Sodium Potassium 5.2 H Chloride Carbon Dioxide BUN 28 H Creatinine 0.7 L Glucose 152 H POC Glucose 141 H Lactic Acid Phosphorus Magnesium Ferritin Lactate Dehydrogenase C-Reactive Protein NT-Pro-B Natriuret Pep Total Protein Albumin Triglycerides Arterial Blood Glucose Ur Specific [place] Coronavirus (PCR) 03/24/21 03/24/21 03/24/21 09:40 11:38 16:45 WBC RBC Hgb Hct MCV MCHC RDW Plt Count Lymph % (Auto) [place] % (Auto) [place] # (Auto) Seg Neutrophils % Seg Neuts % (Manual) Lymphocytes % (Manual) Monocytes % (Manual) Nucleated RBC % Seg Neutrophils # Seg Neutrophils # Man Lymphocytes # (Manual) Monocytes # (Manual) PT INR D-Dimer ABG pH POC ABG pCO2 POC ABG pO2 ABG pO2 ABG HCO3 ABG O2 Saturation ABG Base Excess ABG Hemoglobin ABG Oxyhemoglobin ABG Sodium ABG Potassium ABG Glucose Oxyhemoglobin Sodium Potassium Chloride Carbon Dioxide BUN Creatinine Glucose POC Glucose 126 H 136 H 118 H Lactic Acid Phosphorus Magnesium Ferritin Lactate Dehydrogenase C-Reactive Protein NT-Pro-B Natriuret Pep Total Protein Albumin Triglycerides Arterial Blood Glucose Ur Specific [place] Coronavirus (PCR) 03/24/21 03/24/21 03/25/21 21:03 23:49 04:32 WBC RBC Hgb Hct MCV MCHC RDW 16.1 H Plt Count 121 L Lymph % (Auto) [place] % (Auto) [place] # (Auto) Seg Neutrophils % Seg Neuts % (Manual) Lymphocytes % (Manual) Monocytes % (Manual) Nucleated RBC % Seg Neutrophils # Seg Neutrophils # Man Lymphocytes # (Manual) Monocytes # (Manual) PT INR D-Dimer ABG pH POC ABG pCO2 POC ABG pO2 ABG pO2 ABG HCO3 ABG O2 Saturation ABG Base Excess ABG Hemoglobin ABG Oxyhemoglobin ABG Sodium ABG Potassium ABG Glucose Oxyhemoglobin Sodium Potassium Chloride Carbon Dioxide BUN Creatinine Glucose POC Glucose 116 H 125 H Lactic Acid Phosphorus Magnesium Ferritin Lactate Dehydrogenase C-Reactive Protein NT-Pro-B Natriuret Pep Total Protein Albumin Triglycerides Arterial Blood Glucose Ur Specific [place] Coronavirus (PCR) 03/25/21 03/25/21 03/25/21 04:32 05:21 09:29 WBC RBC Hgb Hct MCV MCHC RDW Plt Count Lymph % (Auto) [place] % (Auto) [place] # (Auto) Seg Neutrophils % Seg Neuts % (Manual) Lymphocytes % (Manual) Monocytes % (Manual) Nucleated RBC % Seg Neutrophils # Seg Neutrophils # Man Lymphocytes # (Manual) Monocytes # (Manual) PT INR D-Dimer ABG pH POC ABG pCO2 POC ABG pO2 ABG pO2 ABG HCO3 ABG O2 Saturation ABG Base Excess ABG Hemoglobin ABG Oxyhemoglobin ABG Sodium ABG Potassium ABG Glucose Oxyhemoglobin Sodium 135 L D Potassium Chloride Carbon Dioxide BUN 25 H Creatinine 0.7 L Glucose 168 H POC Glucose 149 H 115 H Lactic Acid Phosphorus Magnesium Ferritin Lactate Dehydrogenase C-Reactive Protein NT-Pro-B Natriuret Pep Total Protein Albumin Triglycerides Arterial Blood Glucose Ur Specific [place] Coronavirus (PCR) 03/25/21 03/25/21 03/25/21 12:26 12:35 23:53 WBC RBC Hgb Hct MCV MCHC RDW Plt Count Lymph % (Auto) [place] % (Auto) [place] # (Auto) Seg Neutrophils % Seg Neuts % (Manual) Lymphocytes % (Manual) Monocytes % (Manual) Nucleated RBC % Seg Neutrophils # Seg Neutrophils # Man Lymphocytes # (Manual) Monocytes # (Manual) PT INR D-Dimer ABG pH POC ABG pCO2 POC ABG pO2 ABG pO2 100.5 H ABG HCO3 33.6 H ABG O2 Saturation ABG Base Excess 6.4 H ABG Hemoglobin 12.0 L ABG Oxyhemoglobin ABG Sodium ABG Potassium ABG Glucose Oxyhemoglobin Sodium Potassium Chloride Carbon Dioxide BUN Creatinine Glucose POC Glucose 108 H 137 H Lactic Acid Phosphorus Magnesium Ferritin Lactate Dehydrogenase C-Reactive Protein NT-Pro-B Natriuret Pep Total Protein Albumin Triglycerides Arterial Blood Glucose Ur Specific [place] Coronavirus (PCR) 03/26/21 03/26/21 03/26/21 05:14 07:09 07:09 WBC RBC Hgb Hct MCV MCHC RDW 16.5 H Plt Count 139 L Lymph % (Auto) [place] % (Auto) [place] # (Auto) Seg Neutrophils % Seg Neuts % (Manual) Lymphocytes % (Manual) Monocytes % (Manual) Nucleated RBC % Seg Neutrophils # Seg Neutrophils # Man Lymphocytes # (Manual) Monocytes # (Manual) PT INR D-Dimer ABG pH POC ABG pCO2 POC ABG pO2 ABG pO2 ABG HCO3 ABG O2 Saturation ABG Base Excess ABG Hemoglobin ABG Oxyhemoglobin ABG Sodium ABG Potassium ABG Glucose Oxyhemoglobin Sodium Potassium Chloride Carbon Dioxide BUN 22 H Creatinine 0.7 L Glucose 108 H POC Glucose 116 H Lactic Acid Phosphorus Magnesium Ferritin Lactate Dehydrogenase C-Reactive Protein NT-Pro-B Natriuret Pep Total Protein Albumin Triglycerides Arterial Blood Glucose Ur Specific [place] Coronavirus (PCR) 03/26/21 03/26/21 09:51 11:15 WBC RBC Hgb Hct MCV MCHC RDW Plt Count Lymph % (Auto) [place] % (Auto) [place] # (Auto) Seg Neutrophils % Seg Neuts % (Manual) Lymphocytes % (Manual) Monocytes % (Manual) Nucleated RBC % Seg Neutrophils # Seg Neutrophils # Man Lymphocytes # (Manual) Monocytes # (Manual) PT INR D-Dimer ABG pH POC ABG pCO2 POC ABG pO2 ABG pO2 ABG HCO3 ABG O2 Saturation ABG Base Excess ABG Hemoglobin ABG Oxyhemoglobin ABG Sodium ABG Potassium ABG Glucose Oxyhemoglobin Sodium Potassium Chloride Carbon Dioxide BUN Creatinine Glucose POC Glucose 107 H 119 H Lactic Acid Phosphorus Magnesium Ferritin Lactate Dehydrogenase C-Reactive Protein NT-Pro-B Natriuret Pep Total Protein Albumin Triglycerides Arterial Blood Glucose Ur Specific [place] Coronavirus (PCR) Chest x-ray: pending Allied health notes reviewed: nursing
[2021-03-27] MEDS: chlordiazePOXIDE 25 MG CAP PO SCH ×4 (00:28→18:45)
[2021-03-27] MEDS: fentaNYL DRIP Premix 2,000 MCG/100 ML BAG IV SCH ×3 (03:01→18:50)
[2021-03-27] MEDS: INSULIN LISPRO 100 UNIT/ML SUB-Q SCH ×3 (05:26→18:45)
[2021-03-27] MEDS: hydrALAZINE 25 MG TAB PO SCH ×3 (05:37→21:16)
[2021-03-27] MEDS: ARFORMOTEROL 15 MCG/2 ML NEBU IH SCH ×3 (08:41→20:41)
[2021-03-27] MEDS: BUDESONIDE 0.25 MG/2 ML NEBU IH SCH ×2 (08:42→20:41)
[2021-03-27] MEDS: QUEtiapine 100 MG TAB PO SCH ×2 (10:17→21:17)
[2021-03-27] MEDS: ENOXAPARIN 60 MG/0.6 ML INJ SUB-Q SCH (10:17)
[2021-03-27] MEDS: METOPROLOL TARTRATE 25 MG TAB PO SCH ×2 (10:17→21:17)
[2021-03-27] MEDS: ASCORBIC ACID 500 MG TAB PO SCH ×2 (10:18→21:17)
[2021-03-27] MEDS: DOXAZOSIN 1 MG TAB PO SCH (10:18)
[2021-03-27] MEDS: SENNOSIDES/DOCUSATE SODIUM 8.6/50 MG TAB FEEDTUBE SCH ×2 (10:18→21:17)
[2021-03-27] MEDS: ZINC SULFATE 220 MG CAP PO SCH ×2 (10:18→21:17)
[2021-03-27] MEDS: FAMOTIDINE 20 MG TAB FEEDTUBE SCH ×2 (10:18→21:17)
[2021-03-27] MEDS: methylPREDNISolone Sod Succinate 40 MG/1 ML INJ IV SCH (10:19)
[2021-03-27] MEDS: SULFAMETHOXAZOLE/TRIMETHOPRIM 800/160MG DS TAB PO SCH ×2 (10:30→21:16)
--- NOTE | 2021-03-27 10:35 | Progress Note ---
<DEBBY ELLISON - Last Filed: 03/27/21 16:03> Assessment and Plan Assessment and plan: This is a 61-year-old male with past medical history of HTN and DM admitted for sepsis and acute hypoxic respiratory failure 2/2 COVID pneumonia requiring ventilatory support. Hospital Course to Date: 03/09: The patient was seen and evaluated today, and he was found to be hemodynamically stable. The patient is currently on BiPAP for possible COVID-19 pneumonia. He was started on Lovenox 1mg/kg for DVT ppx in the setting of d- dimer > 10,000. Infectious Disease was consulted. The patient is pending a TTE. 03/10: No acute events overnight, patient was intubated in the afternoon transferred to ICU 03/11: Patient started on Lantus, free water flushes increased, propofol drip resumed and oral antihypertensive added. 03/12: lantus increased, k at 5, will monitor. I updated his family and his stated that he is not vaccinated. He does have HTN and she will call the RN to update home medications. She did say he takes bystolic and amlopine. She inquired about ventilator and lab work. She had no further questions. 03/13: KVNG overnight. Patient remains hyperglycemic, basal insulin adjusted and increased to Q12hrs. Patient is overall net positive since admit X1 dose of IV lasix, repeat BMP this afternoon. 03/14: Failed SAT this am due to increase agitation, tachycardia and hypertension. Remains on propofol and fentanyl gtt. Hyperkalemia treated with PO kayaxalate. Patient responded to IV lasix yesterday additional dose again today for a net negative balance. Repeat BMP this afternoon. Insulin adjusted for hyperglycemia. 03/15: Remains encephalopathic, not following commansd. Orders placed for CT head/Brain and Neuro consulted. Rectal bleeding subsided, most likely due to hemorrhoids. H&H is stable will continue to monitor. Kayaxexalate for high K, repeat labs 4 to 6hrs post treatment. 03/16: Still agiated this am, CT head with no acute Abn. CXR and ABG noted- evolving pna and worsening hypoxia, now with low grade fevers. Sputum culture ordered, IV Abx added, ID on cosult. 03/17: This am ABG noted, hypoxia improved. Continue to wean FiO2 as tolerated. Still with low grade fevers, on IV Abx per ID. Still with periods of confusion despite sedation, seroquel increased. F/u CXR in the am 03/18: still very agitated especially when off sedation, with hypertension and tachycardia. Continue sedation for RASS -2, PRN antihypertensive for SPB greater than 160. This febrile this am, continue current IV abx per ID 03/19: Patient afebrile overnight, continue IV Abx per ID. ABG also improved this am, continue to wean FIO2 as tolerated. PRN antihypertensive for hypertension. 03/20: Hyperkalemia treated with Kayexalate, Good discontinued, vancomycin and cefepime stopped started Bactrim by ID. Steroid taper started. 03/21: BB started for hypertension, Seroquel increased for agitation and Librium started no acute events reported overnight. [facility] made vent changes 03/22: Adjustment to anxiolytics, respiratory rate on ventilator per [facility]. Patient noted to have bleeding hemorrhoids with clot, requested RN to remove bowel management system and will order Preparation H. 03/23: Given no confirmed DVT or PE (only superficial thrombus noted on Dopplers) therapeutic Lovenox changed to prophylactic Lovenox. Started on doxazosin to help with retention. Consulted surgery for tracheostomy and propofol discontinued. 03/24: Surgery consult completed, patient changed to prophylaxis anticoagulation, started on doxazosin yesterday with plans to remove Good catheter in 48 hours. Patient with slight hypokalemia today and given Kayexalate. No acute events reported overnight. 03/25: No acute events reported overnight. Patient remains on fentanyl drip and on CPAP trial this morning. 03/26: no acute events reported overnight. placed on CPAP this AM, remains on fent/librium. scheduled for trach/peg this week. 03/27: Hypoglycemic this am, will decreased lantus to Qhs. Plan for possible Trach and Peg by Gen Surg this am. Case management to arrange possible LTAC placement Assessment and Plan #Acute Hypoxic Respiratory Failure #COVID Pneumonia - Intubated on 03/10 due to worsen hypoxia on BIPAP - COVID swab positive - CXR showed bilateral patchy infiltrates - CT chest shows severe patchy multifocal groundglass airspace disease - Vent setting:CPAP-50%,8 PS-16 - AM ABG pending - CCM consulted, appreciate recommendations - Continue IV Steroids and Nebs per CCM - keep patient net negative for better lung compliance - VAP bundle addressed - Aspiration precaution HOB above 30 - Daily SBT and SAT trials as tolerated - Daily ABG and CXR - Continue SPO2 monitoring for SPO2 goal above 92% - Plan for possible Trach/PEG by gen. Surgery #Sepsis #COVID Pneumonia #Leukocytosis #Lactic Acidosis- Resolved - COVID PCR positive - UA neg, Blood cultures and Sputum culture NGTD - repeat Bculture NGTD, 03/17 Sputum Cult + Stenotrophomonas - Infectious disease consulted, appreciate recommendation - S/p Actemra 03/10/2021 - Completed X5days course of IV remdesivir - Now on bactrim until 03/27 - Monitor WBC and temperature curve - Trend CBC #Neuro:Acute Encephalopathy - Intubated and sedated on fentanyl RASS -2 - CT head/brain no acute Abn. - On Seroquel and Librium - Avoid benzodiazepine to reduce the possibility of delirium - Prn analgesia for CPOT greater than 3 - Maintenance of sleep-wake cycle - Neurology on consult #CV: Hypertension - BP stable this am - 03/09 Echocardiogram shows a mildly dilated ascending aorta, normal LV systolic function, mild concentric LVH, LVEF 60 to 65% - Continue PO Hydralazine - PRN Antihypertensive for SBP above 160 - Continue Blood pressure monitoring per protocol #Hyponatremia - Low Na this am - FWF decreased - Strict intake and output - Avoid nephrotoxic medications; Renally dose medications - Good in place - Monitor and replace electrolytes as needed -Trend BMP #Elevated D-dimer - Most likely due to COVID - Bilateral lower extremity ultrasounds negative for DVT, superficial thrombus in left gastrocnemius vein - CTA chest shows no gross pulm embolism - H&H stable - Continue AC- Lovenox SubQ - SCDs to BLE while in bed - Transfuse hemoglobin less than 7 - Monitor for signs of bleeding #Endo:Type 2 DM - Hypoglycemic this am - Continue high dose SSI Q6hrs - Lantus decreased to qHs - Avoid Hypoglycemia The high probability of a clinically significant, sudden or life threatening deterioration of the [Respiratory, Endo, ID] system(s) required my full and direct attention, intervention and personal management. The aggregate critical care time was [60] minutes. This time is in addition to time spent performing reported procedures but includes the following: [x] Data Review and interpretation [x] Patient assessment and monitoring of vital signs [x] Documentation [x] Medication orders and management Disposition Plan: ICU Total Time Spent with Patient (Minutes): 60 History Interval history: Patient seen and examined at the bedside. Remains intubated and on sedation. Hypoglycemic this am, TF is at goal with no interruption overnight. Low BG treated per protocol. KVNG overnight Hospitalist Physical - Constitutional Vitals: Temp Pulse Resp BP Pulse Ox 99.5 F 111 H 26 H 183/96 98 03/27/21 08:00 03/27/21 10:18 03/27/21 09:28 03/27/21 10:18 03/27/21 09:28 General appearance: Present: no acute distress, well-nourished, obese, other (Intubated and sedated) - EENT Eyes: Present: PERRL - Respiratory Respiratory effort: normal Respiratory: bilateral: rhonchi - Cardiovascular Rhythm: regular Heart Sounds: Present: S1 & S2 - Extremities Extremities: no ischemia, pulses intact, pulses symmetrical Extremity abnormal: edema - Peripheral Assessment Generalized Edema Type: Pitting Edema Degree: 2+ Capillary Refill: < 3 seconds Skin Temperature: Warm Peripheral Pulses: within normal limits - Abdominal General gastrointestinal: soft, non-distended, normal bowel sounds - Integumentary Integumentary: Present: warm, dry - Psychiatric Psychiatric: other (Intubated and sedated) - Neurologic Neurologic: other (Intubated and sedated) - Allied Health Allied health notes reviewed: nursing Results - Labs CBC & Chem 7: 03/27/21 10:28 03/27/21 10:28 Labs: Laboratory Last Values WBC 6.8 K/mm3 (4.5-11.0) 03/26/21 07:09 RBC 4.06 M/mm3 (3.65-5.03) 03/26/21 07:09 Hgb 12.1 gm/dl (11.8-15.2) 03/26/21 07:09 Hct 38.3 % (35.5-45.6) 03/26/21 07:09 MCV 94 fl (84-94) 03/26/21 07:09 MCH 30 pg (28-32) 03/26/21 07:09 MCHC 32 % (32-34) 03/26/21 07:09 RDW 16.5 % (13.2-15.2) H 03/26/21 07:09 Plt Count 139 K/mm3 (140-440) L 03/26/21 07:09 Lymph % (Auto) 12.6 % (13.4-35.0) L 03/17/21 04:40 [place] % (Auto) 11.3 % (0.0-7.3) H 03/17/21 04:40 Eos % (Auto) 0.4 % (0.0-4.3) 03/17/21 04:40 Baso % (Auto) 0.8 % (0.0-1.8) 03/17/21 04:40 Lymph # (Auto) 1.8 K/mm3 (1.2-5.4) 03/17/21 04:40 [place] # (Auto) 1.6 K/mm3 (0.0-0.8) H 03/17/21 04:40 Eos # (Auto) 0.1 K/mm3 (0.0-0.4) 03/17/21 04:40 Baso # (Auto) 0.1 K/mm3 (0.0-0.1) 03/17/21 04:40 Add Manual Diff Complete 03/10/21 04:29 Total Counted 100 03/10/21 04:29 Seg Neutrophils % 74.9 % (40.0-70.0) H 03/17/21 04:40 Seg Neuts % (Manual) 94.0 % (40.0-70.0) H 03/10/21 04:29 Band Neutrophils % 0 % 03/10/21 04:29 Lymphocytes % (Manual) 1.0 % (13.4-35.0) L 03/10/21 04:29 Reactive Lymphs % (Man) 0 % 03/10/21 04:29 Monocytes % (Manual) 5.0 % (0.0-7.3) 03/10/21 04:29 Eosinophils % (Manual) 0 % (0.0-4.3) 03/10/21 04:29 Basophils % (Manual) 0 % (0.0-1.8) 03/10/21 04:29 Metamyelocytes % 0 % 03/10/21 04:29 Myelocytes % 0 % 03/10/21 04:29 Promyelocytes % 0 % 03/10/21 04:29 Blast Cells % 0 % 03/10/21 04:29 Nucleated RBC % 3.0 % (0.0-0.9) H 03/10/21 04:29 Seg Neutrophils # 10.5 K/mm3 (1.8-7.7) H 03/17/21 04:40 Seg Neutrophils # Man 19.4 K/mm3 (1.8-7.7) H 03/10/21 04:29 Band Neutrophils # 0.0 K/mm3 03/10/21 04:29 Lymphocytes # (Manual) 0.2 K/mm3 (1.2-5.4) L 03/10/21 04:29 Abs React Lymphs (Man) 0.0 K/mm3 03/10/21 04:29 Monocytes # (Manual) 1.0 K/mm3 (0.0-0.8) H 03/10/21 04:29 Eosinophils # (Manual) 0.0 K/mm3 (0.0-0.4) 03/10/21 04:29 Basophils # (Manual) 0.0 K/mm3 (0.0-0.1) 03/10/21 04:29 Metamyelocytes # 0.0 K/mm3 03/10/21 04:29 Myelocytes # 0.0 K/mm3 03/10/21 04:29 Promyelocytes # 0.0 K/mm3 03/10/21 04:29 Blast Cells # 0.0 K/mm3 03/10/21 04:29 WBC Morphology Not Reportable 03/10/21 04:29 Hypersegmented Neuts Not Reportable 03/10/21 04:29 Hyposegmented Neuts Not Reportable 03/10/21 04:29 Hypogranular Neuts Not Reportable 03/10/21 04:29 Smudge Cells Not Reportable 03/10/21 04:29 Toxic Granulation Not Reportable 03/10/21 04:29 Toxic Vacuolation Not Reportable 03/10/21 04:29 Dohle Bodies Not Reportable 03/10/21 04:29 Pelger-Huet Anomaly Not Reportable 03/10/21 04:29 Mely Rods Not Reportable 03/10/21 04:29 Platelet Estimate Consistent w auto 03/10/21 04:29 Clumped Platelets Not Reportable 03/10/21 04:29 Plt Clumps, EDTA Not Reportable 03/10/21 04:29 Large Platelets Not Reportable 03/10/21 04:29 Giant Platelets Not Reportable 03/10/21 04:29 Platelet Satelliting Not Reportable 03/10/21 04:29 Plt Morphology Comment Not Reportable 03/10/21 04:29 RBC Morphology Normal 03/10/21 04:29 Dimorphic RBCs Not Reportable 03/10/21 04:29 Polychromasia Not Reportable 03/10/21 04:29 Hypochromasia Not Reportable 03/10/21 04:29 Poikilocytosis Not Reportable 03/10/21 04:29 Anisocytosis Not Reportable 03/10/21 04:29 Microcytosis Not Reportable 03/10/21 04:29 Macrocytosis Not Reportable 03/10/21 04:29 Spherocytes Not Reportable 03/10/21 04:29 Pappenheimer Bodies Not Reportable 03/10/21 04:29 Sickle Cells Not Reportable 03/10/21 04:29 Target Cells Not Reportable 03/10/21 04:29 Tear Drop Cells Not Reportable 03/10/21 04:29 Ovalocytes Not Reportable 03/10/21 04:29 Helmet Cells Not Reportable 03/10/21 04:29 Longo-Webb Bodies Not Reportable 03/10/21 04:29 [place] Rings Not Reportable 03/10/21 04:29 Shama Cells Not Reportable 03/10/21 04:29 Bite Cells Not Reportable 03/10/21 04:29 Crenated Cell Not Reportable 03/10/21 04:29 Elliptocytes Not Reportable 03/10/21 04:29 Acanthocytes (Spur) Not Reportable 03/10/21 04:29 Rouleaux Not Reportable 03/10/21 04:29 Hemoglobin C Crystals Not Reportable 03/10/21 04:29 Schistocytes Not Reportable 03/10/21 04:29 Malaria parasites Not Reportable 03/10/21 04:29 Shaheen Bodies Not Reportable 03/10/21 04:29 Hem Pathologist Commnt No 03/10/21 04:29 PT 16.1 Sec. (12.2-14.9) H 03/08/21 20:24 INR 1.17 (0.87-1.13) H 03/08/21 20:24 APTT 28.0 Sec. (24.2-36.6) 03/08/21 20:24 D-Dimer 1359.12 ng/mlDDU (0-234) H 03/17/21 04:40 ABG pH 7.353 pH Units (7.350-7.450) 03/25/21 12:35 POC ABG pCO2 71.9 mmHg (32.0-48.0) H 03/12/21 21:54 ABG pCO2 61.9 mm Hg 03/25/21 12:35 POC ABG pO2 53.6 mmHg (83-108) L 03/12/21 21:54 ABG pO2 100.5 mm Hg (80.0-90.0) H 03/25/21 12:35 POC ABG HCO3 30.0 03/12/21 21:54 ABG HCO3 33.6 mmol/L (20.0-26.0) H 03/25/21 12:35 ABG O2 Saturation 97.3 % (95.0-99.0) 03/25/21 12:35 ABG O2 Content 16.2 (0.0-44) 03/25/21 12:35 POC ABG Base Excess 0.5 03/12/21 21:54 ABG Base Excess 6.4 mmol/L (-2.0-3.0) H 03/25/21 12:35 ABG Hemoglobin 12.0 gm/dl (14.0-18.0) L 03/25/21 12:35 ABG Oxyhemoglobin 84.8 (94-98) L 03/12/21 21:54 ABG Carboxyhemoglobin 1.5 % (0.0-5.0) 03/25/21 12:35 ABG Methemoglobin 0.7 % (0.0-1.5) 03/25/21 12:35 ABG Sodium 134.2 mmol/L (136.0-145.0) L 03/12/21 21:54 ABG Potassium 4.9 mmol/L (3.40-4.50) H 03/12/21 21:54 ABG Chloride 99.0 mmol/L (98-107) 03/12/21 21:54 ABG Glucose 306 mg/dL (65-95) H 03/12/21 21:54 Oxyhemoglobin 95.2 % (95.0-99.0) 03/25/21 12:35 Carboxyhemoglobin 0.6 (0.5-1.5) 03/12/21 21:54 FiO2 50 % 03/25/21 12:35 FiO2 % 50.0 03/12/21 21:54 Sodium 139 mmol/L (137-145) 03/26/21 07:09 Potassium 4.6 mmol/L (3.6-5.0) 03/26/21 07:09 Chloride 103.3 mmol/L (98-107) 03/26/21 07:09 Carbon Dioxide 29 mmol/L (22-30) 03/26/21 07:09 Anion Gap 11 mmol/L 03/26/21 07:09 BUN 22 mg/dL (9-20) H 03/26/21 07:09 Creatinine 0.7 mg/dL (0.8-1.3) L 03/26/21 07:09 Estimated GFR > 60 ml/min 03/26/21 07:09 BUN/Creatinine Ratio 31 % 03/26/21 07:09 Glucose 108 mg/dL (75-100) H 03/26/21 07:09 POC Glucose 71 mg/dL (70-105) 03/27/21 07:37 Lactic Acid 1.90 mmol/L (0.7-2.0) 03/08/21 23:51 Calcium 8.8 mg/dL (8.4-10.2) 03/26/21 07:09 Phosphorus 3.20 mg/dL (2.5-4.5) D 03/23/21 07:04 Magnesium 2.50 mg/dL (1.7-2.3) H 03/23/21 07:04 Ferritin 976.4 ng/mL (30.0-300.0) H 03/15/21 04:00 Total Bilirubin 0.20 mg/dL (0.1-1.2) 03/12/21 08:03 AST 10 units/L (5-40) 03/12/21 08:03 ALT 16 units/L (7-56) 03/12/21 08:03 Alkaline Phosphatase 77 units/L (35-129) 03/12/21 08:03 Lactate Dehydrogenase 630 units/L (91-180) H 03/15/21 06:06 C-Reactive Protein 0.40 mg/dL (0.00-1.30) 03/17/21 04:40 NT-Pro-B Natriuret Pep 1053 pg/mL (0-900) H 03/08/21 20:24 Total Protein 6.0 g/dL (6.3-8.2) L 03/12/21 08:03 Albumin 2.9 g/dL (3.9-5) L 03/12/21 08:03 Albumin/Globulin Ratio 0.9 % 03/12/21 08:03 Triglycerides 305 mg/dL (2-149) H 03/22/21 07:26 Procalcitonin 0.05 ng/mL (<0.15) 03/17/21 04:40 Arterial Blood Glucose 306 mg/dL (65-95) H 03/12/21 21:54 Arterial Blood Ionized Calcium 5.0 mg/dL (4.6-5.3) 03/12/21 21:54 Urine Color Yellow (Yellow) 03/09/21 04:10 Urine Turbidity Slightly-cloudy (Clear) 03/09/21 04:10 Urine pH 5.0 (5.0-7.0) 03/09/21 04:10 Ur Specific Olla 1.041 (1.003-1.030) H 03/09/21 04:10 Urine Protein 100 mg/dl mg/dL (Negative) 03/09/21 04:10 Urine Glucose (UA) Neg mg/dL (Negative) 03/09/21 04:10 Urine Ketones Neg mg/dL (Negative) 03/09/21 04:10 Urine Blood Mod (Negative) 03/09/21 04:10 Urine Nitrite Neg (Negative) 03/09/21 04:10 Urine Bilirubin Neg (Negative) 03/09/21 04:10 Urine Urobilinogen 2.0 mg/dL (<2.0) 03/09/21 04:10 Ur Leukocyte Esterase Neg (Negative) 03/09/21 04:10 Urine WBC (Auto) 4.0 /HPF (0.0-6.0) 03/09/21 04:10 Urine RBC (Auto) 1.0 /HPF (0.0-6.0) 03/09/21 04:10 Urine Bacteria (Auto) 1+ /HPF (Negative) 03/09/21 04:10 Urine Mucus Few /HPF 03/09/21 04:10 Coronavirus (PCR) Positive (Negative) A 03/09/21 08:00 Miscellaneous Test Flexitest 1 03/16/21 13:14 Good/IV: Voiding Method Indwelling Catheter Active Medications - Current Medications Current Medications: Generic Name Dose Route Start Last Admin Trade Name Freq PRN Reason Stop Dose Admin Acetaminophen 650 mg 03/09/21 01:26 03/23/21 10:03 Acetaminophen 325 Mg Tab PO 650 mg Q4H PRN Administration Pain MILD(1-3)/Fever >100.5/RAYO Albuterol 2.5 mg 03/09/21 01:26 03/18/21 21:06 Albuterol 2.5 Mg/3 Ml Nebu IH 2.5 mg Q4HRT PRN Administration Shortness Of Breath Arformoterol Tartrate 15 mcg 03/11/21 20:00 03/27/21 08:42 Arformoterol 15 Mcg/2 Ml Nebu IH Not Given Q12HRT BLANCA Ascorbic Acid 500 mg 03/10/21 14:00 03/27/21 10:18 Ascorbic Acid 500 Mg Tab PO 500 mg BID BLANCA Administration Bisacodyl 10 mg 03/26/21 13:43 03/26/21 13:51 Bisacodyl 10 Mg Rect Supp MD 10 mg QDAY PRN Administration Constipation Budesonide 0.25 mg 03/11/21 20:00 03/27/21 08:42 Budesonide 0.25 Mg/2 Ml Nebu IH Not Given Q12HRT BLANCA Chlordiazepoxide HCl 75 mg 03/22/21 18:00 03/27/21 05:37 Chlordiazepoxide 25 Mg Cap PO 50 mg Q6HR BLANCA Administration Dextrose 0 ml 03/20/21 10:52 Dextrose 10% *Hypoglycemia IV PRN PRN Hypoglycemia Doxazosin Mesylate 1 mg 03/23/21 14:00 03/27/21 10:18 Doxazosin 1 Mg Tab PO 1 mg QDAY BLANCA Administration Enoxaparin Sodium 60 mg 03/24/21 10:00 03/27/21 10:17 Enoxaparin 60 Mg/0.6 Ml Inj SUB-Q 60 mg QDAY BLANCA Administration Protocol Famotidine 20 mg 03/12/21 22:00 03/27/21 10:18 Famotidine 20 Mg Tab FEEDTUBE 20 mg BID BLANCA Administration Hydralazine HCl 50 mg 03/23/21 14:26 03/27/21 05:37 Hydralazine 25 Mg Tab PO 50 mg Q8HR BLANCA Administration Hydrophilic Ointment 1 applic 03/10/21 15:39 Lip Therapy Vaseline TP Q2HR PRN Dry Lips Fentanyl Citrate 2,000 mcg in 100 mls @ 5.897 mls/hr 03/10/21 17:00 03/27/21 03:01 Fentanyl Drip Premix IV 2 mcg/kg/hr TITR BLANCA 11.793 mls/hr Administration Protocol 1 MCG/KG/HR Propofol 1,000 mg in 100 mls @ 3.507 mls/hr 03/11/21 17:00 03/22/21 18:02 Diprivan 10 Mg/Ml IV 0 mcg/kg/min TITR BLANCA 0 mls/hr Titration Protocol 5 MCG/KG/MIN Insulin Glargine 25 units 03/14/21 10:00 03/26/21 22:23 Insulin Glargine 100 Units/Ml SUB-Q 25 units BID [facility] Administration Insulin Human Lispro 0 unit 03/11/21 18:00 03/27/21 05:26 Insulin Lispro 100 Unit/Ml SUB-Q Not Given Q6HR [facility] Protocol Labetalol HCl 10 mg 03/12/21 21:13 03/21/21 16:54 Labetalol 20 Mg/4 Ml Inj IV 10 mg Q6H PRN Administration Blood Pressure Methylprednisolone Sodium Succinate 40 mg 03/27/21 10:00 03/27/21 10:19 Methylprednisolone Sod Succinate 40 Mg/1 Ml Inj IV 03/28/21 10:01 40 mg Q24HR BLANCA Administration Metoprolol Tartrate 12.5 mg 03/21/21 22:00 03/27/21 10:17 Metoprolol Tartrate 25 Mg Tab PO 12.5 mg BID BLANCA Administration Midazolam HCl 2 mg 03/15/21 08:49 03/23/21 07:58 Midazolam 2 Mg/2 Ml Inj IV 2 mg Q2H PRN Administration VENT SYNCHRONY Multi-Ingred Cream/Lotion/Oil/Oint 1 applic 03/10/21 15:39 Mineral Oil/Petrolatum, White Ophth Oint 3.5 Gm OU Q4HR PRN Dry Eye(s) Ondansetron HCl 4 mg 03/09/21 01:26 Ondansetron 4 Mg/2 Ml Inj IV Q8H PRN Nausea And Vomiting Phenyleph/Shark Oil/Min Oil/Petrol 1 applic 03/22/21 17:35 Pe/Mo/Pet,Wh 10 Applic/28 Gm Tube MD Q6HR PRN Hemorrhoids Prednisone 10 mg 03/29/21 10:00 Prednisone 10 Mg Tab PO DAILY BLANCA Quetiapine Fumarate 300 mg 03/21/21 22:00 03/27/21 10:17 Quetiapine 100 Mg Tab PO 300 mg BID BLANCA Administration Senna/Docusate Sodium 1 tab 03/10/21 22:00 03/27/21 10:18 Sennosides/Docusate Sodium 8.6/50 Mg Tab FEEDTUBE 1 tab BID BLANCA Administration Sodium Chloride 10 ml 03/09/21 10:00 03/26/21 21:05 Sodium Chloride 0.9% 10 Ml Flush Syringe IV 10 ml BID BLANCA Administration Sodium Chloride 10 ml 03/09/21 01:26 Sodium Chloride 0.9% 10 Ml Flush Syringe IV PRN PRN LINE FLUSH Sodium Chloride 10 ml 03/20/21 09:48 Sodium Chloride 0.9% 50 Ml Ivpb IV PRN PRN FLUSH Trimethoprim/Sulfamethoxazole 1 each 03/20/21 16:00 03/27/21 10:30 Sulfamethoxazole/Trimethoprim 800/160mg Ds Tab PO 03/27/21 22:01 1 each Q12HR BLANCA Administration Protocol Zinc Sulfate 220 mg 03/10/21 14:00 03/27/21 10:18 Zinc Sulfate 220 Mg Cap PO 220 mg BID BLANCA Administration Nutrition/Malnutrition Assess - Dietary Evaluation Nutrition/Malnutrition Findings: Nutrition Notes Start: 03/09/21 08:49 Freq: Status: Active Protocol: Document 03/20/21 16:21 BRYANNA (Rec: 03/20/21 16:53 BRYANNA [id number]) Nutrition Notes Current Diagnosis Diabetes,Sepsis,Hypertension, Respiratory Failure Other Pertinent Diagnosis COVID-19, Bilateral Pneumonia. Current Diet TF-Glucerna 1.2 Tyson at 40 ml/ hr (since D 03/17). Labs/Tests 03/20: Na 146, K 5.5, Cl 111.1 , BUN 34, Crea 0.7, Glu 145, Mg 2.5. Pertinent Medications 03/20: Vit C, Insulin, ZnSO4, Propofol @ 35.07 ml/hr ( 926Kcal), others nutritionally unremarkable. Height 5 ft 11 in Weight 120 kg [place] Body Weight (kg) 78.18 BMI 36.8 Weight change and time frame 3.0 Kg body weight gain in 3 days reported. Weight Status Obese Subjective/Other Information RD consult for routine F/U on TF tolerance. Pt remains on mechanical ventilation, according to Progre[facility] notes. TF continues as prescribed. Pt continues with low-grade fever. Percent of energy/protein needs met: Prescribed Glucerna 1.2 Tyson @ 40 ml/hr provides for energy/ protein needs (1,152 Kcal/58 g ) during LOS, additionally, Propofol contributes with 926 Kcal, 87% Kcal; 46% AA. #1 Nutrition Diagnosis Inadequate oral intake Diagnosis Progress(for reassessment Continues documentation) Nutrition Intervention Nutrition Support: Continue Glucerna 1.2 @ 40 ml/ hr. Flush: 200ml water Q 4 hr ( until hypernatremia resolved). Kcal 1,152 Protein (gm) 58 Carbohydrates (gm) 110 Fat (gm) 58 Fluid (mL) 773 Fiber (gm) 15 % RDI: 48% Kcal; 46% AA. Goal #1 Provide at least 75% of energy /protein needs through Enteral Feeding during LOS. Follow-Up By: 03/27/21 Additional Comments Continue monitoring TF tolerance and BM. <RAFAEL DOMINGUEZ - Last Filed: 03/28/21 10:18> Assessment and Plan Assessment and plan: I saw and evaluated the patient. Discussed with the nurse practitioner and agree with their findings and plan as documented in this note. Hospitalist Physical - Constitutional Vitals: Temp Pulse Resp BP Pulse Ox 99 F 120 H 20 134/78 96 03/28/21 08:00 03/28/21 09:58 03/28/21 09:00 03/28/21 09:58 03/28/21 09:00 Results - Labs CBC & Chem 7: 03/28/21 07:14 03/28/21 07:14 Labs: Laboratory Last Values WBC 8.8 K/mm3 (4.5-11.0) 03/28/21 07:14 RBC 4.22 M/mm3 (3.65-5.03) 03/28/21 07:14 Hgb 12.8 gm/dl (11.8-15.2) 03/28/21 07:14 Hct 39.9 % (35.5-45.6) 03/28/21 07:14 MCV 94 fl (84-94) 03/28/21 07:14 MCH 30 pg (28-32) 03/28/21 07:14 MCHC 32 % (32-34) 03/28/21 07:14 RDW 16.4 % (13.2-15.2) H 03/28/21 07:14 Plt Count 140 K/mm3 (140-440) 03/28/21 07:14 Lymph % (Auto) 12.6 % (13.4-35.0) L 03/17/21 04:40 [place] % (Auto) 11.3 % (0.0-7.3) H 03/17/21 04:40 Eos % (Auto) 0.4 % (0.0-4.3) 03/17/21 04:40 Baso % (Auto) 0.8 % (0.0-1.8) 03/17/21 04:40 Lymph # (Auto) 1.8 K/mm3 (1.2-5.4) 03/17/21 04:40 [place] # (Auto) 1.6 K/mm3 (0.0-0.8) H 03/17/21 04:40 Eos # (Auto) 0.1 K/mm3 (0.0-0.4) 03/17/21 04:40 Baso # (Auto) 0.1 K/mm3 (0.0-0.1) 03/17/21 04:40 Add Manual Diff Complete 03/10/21 04:29 Total Counted 100 03/10/21 04:29 Seg Neutrophils % 74.9 % (40.0-70.0) H 03/17/21 04:40 Seg Neuts % (Manual) 94.0 % (40.0-70.0) H 03/10/21 04:29 Band Neutrophils % 0 % 03/10/21 04:29 Lymphocytes % (Manual) 1.0 % (13.4-35.0) L 03/10/21 04:29 Reactive Lymphs % (Man) 0 % 03/10/21 04:29 Monocytes % (Manual) 5.0 % (0.0-7.3) 03/10/21 04:29 Eosinophils % (Manual) 0 % (0.0-4.3) 03/10/21 04:29 Basophils % (Manual) 0 % (0.0-1.8) 03/10/21 04:29 Metamyelocytes % 0 % 03/10/21 04:29 Myelocytes % 0 % 03/10/21 04:29 Promyelocytes % 0 % 03/10/21 04:29 Blast Cells % 0 % 03/10/21 04:29 Nucleated RBC % 3.0 % (0.0-0.9) H 03/10/21 04:29 Seg Neutrophils # 10.5 K/mm3 (1.8-7.7) H 03/17/21 04:40 Seg Neutrophils # Man 19.4 K/mm3 (1.8-7.7) H 03/10/21 04:29 Band Neutrophils # 0.0 K/mm3 03/10/21 04:29 Lymphocytes # (Manual) 0.2 K/mm3 (1.2-5.4) L 03/10/21 04:29 Abs React Lymphs (Man) 0.0 K/mm3 03/10/21 04:29 Monocytes # (Manual) 1.0 K/mm3 (0.0-0.8) H 03/10/21 04:29 Eosinophils # (Manual) 0.0 K/mm3 (0.0-0.4) 03/10/21 04:29 Basophils # (Manual) 0.0 K/mm3 (0.0-0.1) 03/10/21 04:29 Metamyelocytes # 0.0 K/mm3 03/10/21 04:29 Myelocytes # 0.0 K/mm3 03/10/21 04:29 Promyelocytes # 0.0 K/mm3 03/10/21 04:29 Blast Cells # 0.0 K/mm3 03/10/21 04:29 WBC Morphology Not Reportable 03/10/21 04:29 Hypersegmented Neuts Not Reportable 03/10/21 04:29 Hyposegmented Neuts Not Reportable 03/10/21 04:29 Hypogranular Neuts Not Reportable 03/10/21 04:29 Smudge Cells Not Reportable 03/10/21 04:29 Toxic Granulation Not Reportable 03/10/21 04:29 Toxic Vacuolation Not Reportable 03/10/21 04:29 Dohle Bodies Not Reportable 03/10/21 04:29 Pelger-Huet Anomaly Not Reportable 03/10/21 04:29 Mely Rods Not Reportable 03/10/21 04:29 Platelet Estimate Consistent w auto 03/10/21 04:29 Clumped Platelets Not Reportable 03/10/21 04:29 Plt Clumps, EDTA Not Reportable 03/10/21 04:29 Large Platelets Not Reportable 03/10/21 04:29 Giant Platelets Not Reportable 03/10/21 04:29 Platelet Satelliting Not Reportable 03/10/21 04:29 Plt Morphology Comment Not Reportable 03/10/21 04:29 RBC Morphology Normal 03/10/21 04:29 Dimorphic RBCs Not Reportable 03/10/21 04:29 Polychromasia Not Reportable 03/10/21 04:29 Hypochromasia Not Reportable 03/10/21 04:29 Poikilocytosis Not Reportable 03/10/21 04:29 Anisocytosis Not Reportable 03/10/21 04:29 Microcytosis Not Reportable 03/10/21 04:29 Macrocytosis Not Reportable 03/10/21 04:29 Spherocytes Not Reportable 03/10/21 04:29 Pappenheimer Bodies Not Reportable 03/10/21 04:29 Sickle Cells Not Reportable 03/10/21 04:29 Target Cells Not Reportable 03/10/21 04:29 Tear Drop Cells Not Reportable 03/10/21 04:29 Ovalocytes Not Reportable 03/10/21 04:29 Helmet Cells Not Reportable 03/10/21 04:29 Longo-Webb Bodies Not Reportable 03/10/21 04:29 [place] Rings Not Reportable 03/10/21 04:29 Shama Cells Not Reportable 03/10/21 04:29 Bite Cells Not Reportable 03/10/21 04:29 Crenated Cell Not Reportable 03/10/21 04:29 Elliptocytes Not Reportable 03/10/21 04:29 Acanthocytes (Spur) Not Reportable 03/10/21 04:29 Rouleaux Not Reportable 03/10/21 04:29 Hemoglobin C Crystals Not Reportable 03/10/21 04:29 Schistocytes Not Reportable 03/10/21 04:29 Malaria parasites Not Reportable 03/10/21 04:29 Shaheen Bodies Not Reportable 03/10/21 04:29 Hem Pathologist Commnt No 03/10/21 04:29 PT 16.1 Sec. (12.2-14.9) H 03/08/21 20:24 INR 1.17 (0.87-1.13) H 03/08/21 20:24 APTT 28.0 Sec. (24.2-36.6) 03/08/21 20:24 D-Dimer 1359.12 ng/mlDDU (0-234) H 03/17/21 04:40 ABG pH 7.353 pH Units (7.350-7.450) 03/25/21 12:35 POC ABG pCO2 71.9 mmHg (32.0-48.0) H 03/12/21 21:54 ABG pCO2 61.9 mm Hg 03/25/21 12:35 POC ABG pO2 53.6 mmHg (83-108) L 03/12/21 21:54 ABG pO2 100.5 mm Hg (80.0-90.0) H 03/25/21 12:35 POC ABG HCO3 30.0 03/12/21 21:54 ABG HCO3 33.6 mmol/L (20.0-26.0) H 03/25/21 12:35 ABG O2 Saturation 97.3 % (95.0-99.0) 03/25/21 12:35 ABG O2 Content 16.2 (0.0-44) 03/25/21 12:35 POC ABG Base Excess 0.5 03/12/21 21:54 ABG Base Excess 6.4 mmol/L (-2.0-3.0) H 03/25/21 12:35 ABG Hemoglobin 12.0 gm/dl (14.0-18.0) L 03/25/21 12:35 ABG Oxyhemoglobin 84.8 (94-98) L 03/12/21 21:54 ABG Carboxyhemoglobin 1.5 % (0.0-5.0) 03/25/21 12:35 ABG Methemoglobin 0.7 % (0.0-1.5) 03/25/21 12:35 ABG Sodium 134.2 mmol/L (136.0-145.0) L 03/12/21 21:54 ABG Potassium 4.9 mmol/L (3.40-4.50) H 03/12/21 21:54 ABG Chloride 99.0 mmol/L (98-107) 03/12/21 21:54 ABG Glucose 306 mg/dL (65-95) H 03/12/21 21:54 Oxyhemoglobin 95.2 % (95.0-99.0) 03/25/21 12:35 Carboxyhemoglobin 0.6 (0.5-1.5) 03/12/21 21:54 FiO2 50 % 03/25/21 12:35 FiO2 % 50.0 03/12/21 21:54 Sodium [facility] 03/28/21 07:14 Potassium [facility] 03/28/21 07:14 Chloride [facility] 03/28/21 07:14 Carbon Dioxide [place] 03/28/21 07:14 Anion Gap [place] 03/28/21 07:14 BUN [facility] 03/28/21 07:14 Creatinine TNR 03/28/21 07:14 Estimated GFR [facility] 03/28/21 07:14 BUN/Creatinine Ratio [facility] 03/28/21 07:14 Glucose KSR 03/28/21 07:14 POC Glucose 96 mg/dL (70-105) 03/28/21 05:24 Lactic Acid 1.90 mmol/L (0.7-2.0) 03/08/21 23:51 Calcium TNR 03/28/21 07:14 Phosphorus TNR 03/28/21 07:14 Magnesium [facility] 03/28/21 07:14 Ferritin 976.4 ng/mL (30.0-300.0) H 03/15/21 04:00 Total Bilirubin 0.20 mg/dL (0.1-1.2) 03/12/21 08:03 AST 10 units/L (5-40) 03/12/21 08:03 ALT 16 units/L (7-56) 03/12/21 08:03 Alkaline Phosphatase 77 units/L (35-129) 03/12/21 08:03 Lactate Dehydrogenase 630 units/L (91-180) H 03/15/21 06:06 C-Reactive Protein 0.40 mg/dL (0.00-1.30) 03/17/21 04:40 NT-Pro-B Natriuret Pep 1053 pg/mL (0-900) H 03/08/21 20:24 Total Protein 6.0 g/dL (6.3-8.2) L 03/12/21 08:03 Albumin 2.9 g/dL (3.9-5) L 03/12/21 08:03 Albumin/Globulin Ratio 0.9 % 03/12/21 08:03 Triglycerides 305 mg/dL (2-149) H 03/22/21 07:26 Procalcitonin 0.05 ng/mL (<0.15) 03/17/21 04:40 Arterial Blood Glucose 306 mg/dL (65-95) H 03/12/21 21:54 Arterial Blood Ionized Calcium 5.0 mg/dL (4.6-5.3) 03/12/21 21:54 Urine Color Yellow (Yellow) 03/09/21 04:10 Urine Turbidity Slightly-cloudy (Clear) 03/09/21 04:10 Urine pH 5.0 (5.0-7.0) 03/09/21 04:10 Ur Specific Olla 1.041 (1.003-1.030) H 03/09/21 04:10 Urine Protein 100 mg/dl mg/dL (Negative) 03/09/21 04:10 Urine Glucose (UA) Neg mg/dL (Negative) 03/09/21 04:10 Urine Ketones Neg mg/dL (Negative) 03/09/21 04:10 Urine Blood Mod (Negative) 03/09/21 04:10 Urine Nitrite Neg (Negative) 03/09/21 04:10 Urine Bilirubin Neg (Negative) 03/09/21 04:10 Urine Urobilinogen 2.0 mg/dL (<2.0) 03/09/21 04:10 Ur Leukocyte Esterase Neg (Negative) 03/09/21 04:10 Urine WBC (Auto) 4.0 /HPF (0.0-6.0) 03/09/21 04:10 Urine RBC (Auto) 1.0 /HPF (0.0-6.0) 03/09/21 04:10 Urine Bacteria (Auto) 1+ /HPF (Negative) 03/09/21 04:10 Urine Mucus Few /HPF 03/09/21 04:10 Coronavirus (PCR) Positive (Negative) A 03/09/21 08:00 Miscellaneous Test Flexitest 1 03/16/21 13:14 Good/IV: Voiding Method Indwelling Catheter Active Medications - Current Medications Current Medications: Generic Name Dose Route Start Last Admin Trade Name Freq PRN Reason Stop Dose Admin Acetaminophen 650 mg 03/09/21 01:26 03/28/21 05:15 Acetaminophen 325 Mg Tab PO 650 mg Q4H PRN Administration Pain MILD(1-3)/Fever >100.5/RAYO Albuterol 2.5 mg 03/09/21 01:26 03/18/21 21:06 Albuterol 2.5 Mg/3 Ml Nebu IH 2.5 mg Q4HRT PRN Administration Shortness Of Breath Arformoterol Tartrate 15 mcg 03/11/21 20:00 03/28/21 08:31 Arformoterol 15 Mcg/2 Ml Nebu IH Not Given Q12HRT [facility]AN[facility] Ascorbic Acid 500 mg 03/10/21 14:00 03/28/21 09:58 Ascorbic Acid 500 Mg Tab PO 500 mg BID BLANCA Administration Bisacodyl 10 mg 03/26/21 13:43 03/26/21 13:51 Bisacodyl 10 Mg Rect Supp MD 10 mg QDAY PRN Administration Constipation Budesonide 0.25 mg 03/11/21 20:00 03/28/21 08:31 Budesonide 0.25 Mg/2 Ml Nebu IH Not Given Q12HRT BLANCA Chlordiazepoxide HCl 75 mg 03/22/21 18:00 03/28/21 05:15 Chlordiazepoxide 25 Mg Cap PO 75 mg Q6HR BLANCA Administration Dextrose 0 ml 03/20/21 10:52 Dextrose 10% *Hypoglycemia IV PRN PRN Hypoglycemia Doxazosin Mesylate 1 mg 03/23/21 14:00 03/28/21 09:58 Doxazosin 1 Mg Tab PO 1 mg QDAY BLANCA Administration Enoxaparin Sodium 60 mg 03/24/21 10:00 03/28/21 09:58 Enoxaparin 60 Mg/0.6 Ml Inj SUB-Q 60 mg QDAY BLANCA Administration Protocol Famotidine 20 mg 03/12/21 22:00 03/28/21 09:58 Famotidine 20 Mg Tab FEEDTUBE 20 mg BID [facility] Administration Hydralazine HCl 50 mg 03/23/21 14:26 03/28/21 05:15 Hydralazine 25 Mg Tab PO 50 mg Q8HR [facility] Administration Hydrophilic Ointment 1 applic 03/10/21 15:39 Lip Therapy Vaseline TP Q2HR PRN Dry Lips Fentanyl Citrate 2,000 mcg in 100 mls @ 5.897 mls/hr 03/10/21 17:00 03/28/21 07:19 Fentanyl Drip Premix IV 2 mcg/kg/hr TITR BLANCA 11.793 mls/hr Titration Protocol 1 MCG/KG/HR Propofol 1,000 mg in 100 mls @ 3.507 mls/hr 03/11/21 17:00 03/22/21 18:02 Diprivan 10 Mg/Ml IV 0 mcg/kg/min TITR BLANCA 0 mls/hr Titration Protocol 5 MCG/KG/MIN Insulin Glargine 15 units 03/29/21 22:00 Insulin Glargine 100 Units/Ml SUB-Q QHS [facility] Insulin Human Lispro 0 unit 03/11/21 18:00 03/28/21 05:38 Insulin Lispro 100 Unit/Ml SUB-Q Not Given Q6HR [facility] Protocol Labetalol HCl 10 mg 03/12/21 21:13 03/21/21 16:54 Labetalol 20 Mg/4 Ml Inj IV 10 mg Q6H PRN Administration Blood Pressure Metoprolol Tartrate 12.5 mg 03/21/21 22:00 03/28/21 09:57 Metoprolol Tartrate 25 Mg Tab PO 12.5 mg BID [facility] Administration Midazolam HCl 2 mg 03/15/21 08:49 03/23/21 07:58 Midazolam 2 Mg/2 Ml Inj IV 2 mg Q2H PRN Administration VENT SYNCHRONY Multi-Ingred Cream/Lotion/Oil/Oint 1 applic 03/10/21 15:39 Mineral Oil/Petrolatum, White Ophth Oint 3.5 Gm OU Q4HR PRN Dry Eye(s) Ondansetron HCl 4 mg 03/09/21 01:26 Ondansetron 4 Mg/2 Ml Inj IV Q8H PRN Nausea And Vomiting Phenyleph/Shark Oil/Min Oil/Petrol 1 applic 03/22/21 17:35 03/28/21 03:50 Pe/Mo/Pet,Wh 10 Applic/ Gm Tube MD 1 applic Q6HR PRN Administration Hemorrhoids Prednisone 10 mg 03/29/21 10:00 Prednisone 10 Mg Tab PO DAILY [facility]AN[facility] Quetiapine Fumarate 300 mg 03/21/21 22:00 03/28/21 09:58 Quetiapine 100 Mg Tab PO 300 mg BID [facility] Administration Senna/Docusate Sodium 1 tab 03/10/21 22:00 03/28/21 09:58 Sennosides/Docusate Sodium 8.6/50 Mg Tab FEEDTUBE 1 tab BID [facility]AN[facility] Administration Sodium Chloride 10 ml 03/09/21 10:00 03/28/21 09:59 Sodium Chloride 0.9% 10 Ml Flush Syringe IV 10 ml BID [facility]AN[facility] Administration Sodium Chloride 10 ml 03/09/21 01:26 Sodium Chloride 0.9% 10 Ml Flush Syringe IV PRN PRN LINE FLUSH Sodium Chloride 10 ml 03/20/21 09:48 Sodium Chloride 0.9% 50 Ml Ivpb IV PRN PRN FLUSH Zinc Sulfate 220 mg 03/10/21 14:00 03/28/21 09:58 Zinc Sulfate 220 Mg Cap PO 220 mg BID [facility]AN[facility] Administration Nutrition/Malnutrition Assess - Dietary Evaluation Nutrition/Malnutrition Findings: Nutrition Notes Start: 03/09/21 08:49 Freq: Status: Active Protocol: Document 03/27/21 14:48 [facility] (Rec: 03/27/21 15:01 FLALL [id number]) Nutrition Notes Initial or Follow up Reassessment Current Diagnosis Diabetes,Sepsis,Hypertension, Respiratory Failure Other Pertinent Diagnosis COVID-19, Bilateral Pneumonia. Current Diet TF-Glucerna 1.2 at 40 ml/hr Labs/Tests BG 150 Na 136 (Na lab been <145 since 03/24) Pertinent Medications Solumedrol Height 5 ft 11 in Weight 122 kg [place] Body Weight (kg) 78.18 BMI 37.5 Weight Status Obese Subjective/Other Information Pt remains on vent support, but no longer receives propofol. RN informed of intent to increase TF goal rate. Percent of energy/protein needs met: 47% energy 45% pro Burn Absent Trauma Absent #1 Nutrition Diagnosis Inadequate oral intake Diagnosis Progress(for reassessment Continues documentation) Is patient on ventilator? Yes Is Patient Ambulatory and/or Out of Bed No REE-(Pearce-St. Jeor-confined to bed) [phone] Calculation Used for Recommendations 70-80% energy needs Additional Notes Energy needs: 8960-7605 kcal/ day Pro needs 1.3g/kg adjBW: 130g/ day Fluid needs 1ml/kcal Nutrition Intervention Nutrition Support: Increase TF goal rate to 70ml/ hr with 110ml water flush q4h. Kcal 2,016 Protein (gm) 101 Carbohydrates (gm) 192 Fat (gm) 101 Fluid (mL) 1,352 Fiber (gm) 27 Goal #1 TF tolerance Goal #2 TF to meet at least 75% energy and pro needs Follow-Up By: 03/31/21 Additional Comments F/U: TF goal rate increase/ tolerance, vent status, Na lab /water flush
--- NOTE | 2021-03-27 10:53 | Progress Note ---
Assessment and Plan Acute hypoxemic respiratory failure, on continuous noninvasive ventilation COVID-19 infection Bilateral pneumonia History of diabetes Obesity Hypertension Leukocytosis Possible venous thromboembolic phenomena with significantly elevated D-dimers DM II Elevated serum inflammatory markers to include CRP levels, ferritin and LDH - ETT day # 18; awaiting tracheostomy - pull yusuf catheter today - prn CXR's & ABG's at this point - continue Daily SAT and SBT assessment as tolerated - continue care as below otherwise; - continue to wean supplemental oxygen for target O2 sat's > 90% acutely - VAP bundle addressed - continue lung protective strategies - continue bronchodilators with pulmonary hygiene per RT - wean per pulmonary driven protocols otherwise - continue accuchecks with glycemic control per SSI (While critically ill target blood glucose of 140-180 mg/dL; avoid hypoglycemia) - sedation prn for target RASS 0 to -1 - avoid nephrotoxins, renally dose all medications - avoid benzodiazepine's, reduce the possibility of delirium - AB's per ID rec's - prn analgesia per pain score - Maintenance of sleep-wake cycle, avoid delirium - G.I. & VTE prophylaxis - PT/OT/ROM exercises - mobility protocols for pressure ulcer prophylaxis - Monitor hemodynamics closely - continue other care per attending / other consultants - discharge planning ongoing concurrently COVID SPECIFIC INTERVENTIONS - Remdesivir as per ID/Pulmonary developed protocols (received) - continue systemic steroids for severe COVID-19 infection empirically (Decadron) - follow repeat COVID tests results - zinc and vitamin C supplementation - Monitor inflammatory markers per facility protocol - ferritin, Ddimer, CRP - therapeutic anticoagulation per system Protocol based on d-dimer and clinical considerations (treatment dose) - Continue contact and airborne isolation .... Re-evaluate in am & prn CONDITION: CRITICAL PROGNOSIS: GUARDED CODE STATUS: FULL CODE The high probability of a clinically significant, sudden or life-threatening deterioration of the [respiratory, cardiovascular & hematologic] system(s) required my full and direct attention, intervention and personal management. The aggregate critical care time was [35] minutes without overlap. Time includes spent on; [x] Data Review and interpretation [x] Patient assessment and monitoring of vital signs [x] Documentation [x] Medication orders and management Subjective Date of service: 03/27/21 Principal diagnosis: COVID-19 infection; DM II; Bilateral pneumonia; Obesity; HTN Interval history: Patient is seen today for: Acute hypoxemic respiratory failure; COVID-19 infection; DM II; Bilateral pneumonia; Obesity; HTN Seen and examined at bedside; 24hour events reviewed; nursing and respiratory care staff consulted; no adverse overnight events reported to me; resting in bed; remains on MVS; on PSV trial and tolerating well so far this morning; no emesis or overt aspiration and no high grade fevers; no gross bleeding Objective Vital Signs - 12hr 03/26/21 03/26/21 03/26/21 23:00 23:15 23:30 Temperature Pulse Rate 101 H 100 H 101 H Respiratory 16 14 14 Rate Blood Pressure 141/75 123/79 125/67 O2 Sat by Pulse 97 98 99 Oximetry 03/26/21 03/27/21 03/27/21 23:45 00:00 00:06 Temperature 99.4 F Pulse Rate 102 H 96 H 98 H Respiratory 15 13 13 Rate Blood Pressure 135/64 129/74 125/74 O2 Sat by Pulse 99 100 100 Oximetry 03/27/21 03/27/21 03/27/21 00:15 00:30 00:45 Temperature Pulse Rate 96 H 95 H 95 H Respiratory 13 12 11 L Rate Blood Pressure 129/74 130/73 132/75 O2 Sat by Pulse 100 99 100 Oximetry 03/27/21 03/27/21 03/27/21 01:00 01:15 01:30 Temperature Pulse Rate 94 H 99 H 98 H Respiratory 11 L 20 13 Rate Blood Pressure 129/77 168/97 163/94 O2 Sat by Pulse 100 100 96 Oximetry 03/27/21 03/27/21 03/27/21 01:45 02:00 02:15 Temperature Pulse Rate 98 H 98 H 98 H Respiratory 16 16 16 Rate Blood Pressure 134/87 125/86 146/86 O2 Sat by Pulse 97 97 98 Oximetry 03/27/21 03/27/21 03/27/21 02:30 02:45 03:00 Temperature Pulse Rate 96 H 96 H 96 H Respiratory 15 17 14 Rate Blood Pressure 139/81 133/73 126/74 O2 Sat by Pulse 98 99 99 Oximetry 03/27/21 03/27/21 03/27/21 03:15 03:25 03:28 Temperature 99.8 F H Pulse Rate 97 H 97 H Respiratory 12 Rate Blood Pressure 130/73 O2 Sat by Pulse 99 Oximetry 03/27/21 03/27/2122 03:30 03:45 04:00 Temperature Pulse Rate 95 H 94 H 97 H Respiratory 11 L 11 L 12 Rate Blood Pressure 129/79 124/76 154/76 O2 Sat by Pulse 99 98 98 Oximetry 03/27/21 03/27/21 03/27/21 04:15 04:30 04:45 Temperature Pulse Rate 95 H 98 H Respiratory 11 L 16 14 Rate Blood Pressure 159/81 181/93 154/76 O2 Sat by Pulse 99 96 98 Oximetry 03/27/21 03/27/21 03/27/21 05:00 05:15 05:30 Temperature Pulse Rate 96 H 99 H 100 H Respiratory 12 12 15 Rate Blood Pressure 154/101 162/91 152/86 O2 Sat by Pulse 97 97 96 Oximetry 03/27/21 03/27/21 03/27/21 05:45 06:00 06:15 Temperature Pulse Rate 100 H 99 H 99 H Respiratory 16 15 15 Rate Blood Pressure 162/91 170/90 155/87 O2 Sat by Pulse 97 97 98 Oximetry 03/27/21 03/27/21 03/27/21 06:30 06:45 07:00 Temperature Pulse Rate 97 H 97 H 98 H Respiratory 14 21 17 Rate Blood Pressure 141/85 156/83 154/81 O2 Sat by Pulse 97 97 98 Oximetry 03/27/21 03/27/21 03/27/21 07:15 07:30 07:46 Temperature Pulse Rate 95 H 104 H 116 H Respiratory 13 17 27 H Rate Blood Pressure 170/110 186/99 176/91 O2 Sat by Pulse 97 98 96 Oximetry 03/27/21 03/27/21 03/27/21 08:00 08:16 08:30 Temperature 99.5 F Pulse Rate 111 H 110 H 107 H Respiratory 29 H 21 16 Rate Blood Pressure 176/91 176/91 176/91 O2 Sat by Pulse 97 94 96 Oximetry 03/27/21 03/27/21 03/27/21 08:46 09:00 09:16 Temperature Pulse Rate 105 H 105 H 105 H Respiratory 17 17 17 Rate Blood Pressure 176/91 176/91 176/91 O2 Sat by Pulse 97 97 98 Oximetry 03/27/21 03/27/21 09:28 10:18 Temperature Pulse Rate 108 H 111 H Respiratory 26 H Rate Blood Pressure 183/96 O2 Sat by Pulse 98 Oximetry Constitutional: no acute distress (sedated), other (elderly obese male with mildly increased respiratory effort at rest on MVS) Eyes: non-icteric ENT: oropharynx moist, other (ETT 24 cm CHAITANYA) Neck: supple, no lymphadenopathy, no JVD, other (large circumference) Effort: normal Ascultation: Bilateral: diminished breath sounds, rhonchi Percussion: Bilateral: not dull Cardiovascular: regular rate and rhythm, other (tachycardia, S1,S2) Gastrointestinal: normoactive bowel sounds, soft, non-tender, non-distended (protuberant) Integumentary: normal Extremities: no cyanosis, pulses normal, no ischemia or petechiae, edema Neurologic: non-focal exam (grossly), pupils equal and round, unable to assess, other (sedated) Psychiatric: other (unable to assess re: AMS) CBC and BMP: 03/27/21 10:28 03/27/21 10:28 ABG, PT/INR, D-dimer: ABG ABG pH 7.353 pH Units (7.350-7.450) 03/25/21 12:35 POC ABG pCO2 71.9 mmHg (32.0-48.0) H 03/12/21 21:54 ABG pCO2 61.9 mm Hg 03/25/21 12:35 POC ABG pO2 53.6 mmHg (83-108) L 03/12/21 21:54 ABG pO2 100.5 mm Hg (80.0-90.0) H 03/25/21 12:35 POC ABG HCO3 30.0 03/12/21 21:54 ABG O2 Saturation 97.3 % (95.0-99.0) 03/25/21 12:35 PT/INR, D-dimer PT 16.1 Sec. (12.2-14.9) H 03/08/21 20:24 INR 1.17 (0.87-1.13) H 03/08/21 20:24 D-Dimer 1359.12 ng/mlDDU (0-234) H 03/17/21 04:40 Abnormal lab findings: Abnormal Labs 03/08/21 03/08/21 03/08/21 20:24 20:24 20:24 WBC 22.6 H RBC 5.44 H Hgb 15.7 H Hct 49.2 H MCV MCHC RDW Plt Count Lymph % (Auto) [place] % (Auto) [place] # (Auto) Seg Neutrophils % Seg Neuts % (Manual) 83.0 H Lymphocytes % (Manual) 9.0 L Monocytes % (Manual) 8.0 H Nucleated RBC % Seg Neutrophils # Seg Neutrophils # Man 18.8 H Lymphocytes # (Manual) Monocytes # (Manual) 1.8 H PT 16.1 H INR 1.17 H D-Dimer > 27448 H ABG pH POC ABG pCO2 POC ABG pO2 ABG pO2 ABG HCO3 ABG O2 Saturation ABG Base Excess ABG Hemoglobin ABG Oxyhemoglobin ABG Sodium ABG Potassium ABG Glucose Oxyhemoglobin Sodium 136 L Potassium Chloride 93.9 L Carbon Dioxide BUN 29 H Creatinine Glucose 208 H POC Glucose Lactic Acid Phosphorus Magnesium Ferritin Lactate Dehydrogenase 624 H C-Reactive Protein 18.00 H NT-Pro-B Natriuret Pep 1053 H Total Protein Albumin Triglycerides Arterial Blood Glucose Ur Specific [place] Coronavirus (PCR) 03/08/21 03/08/21 03/09/21 20:24 20:24 04:10 WBC RBC Hgb Hct MCV MCHC RDW Plt Count Lymph % (Auto) [place] % (Auto) [place] # (Auto) Seg Neutrophils % Seg Neuts % (Manual) Lymphocytes % (Manual) Monocytes % (Manual) Nucleated RBC % Seg Neutrophils # Seg Neutrophils # Man Lymphocytes # (Manual) Monocytes # (Manual) PT INR D-Dimer ABG pH POC ABG pCO2 POC ABG pO2 ABG pO2 ABG HCO3 ABG O2 Saturation ABG Base Excess ABG Hemoglobin ABG Oxyhemoglobin ABG Sodium ABG Potassium ABG Glucose Oxyhemoglobin Sodium Potassium Chloride Carbon Dioxide BUN Creatinine Glucose POC Glucose Lactic Acid 2.10 H* Phosphorus Magnesium Ferritin 877.5 H Lactate Dehydrogenase C-Reactive Protein NT-Pro-B Natriuret Pep Total Protein Albumin Triglycerides Arterial Blood Glucose Ur Specific [place] 1.041 H Coronavirus (PCR) 03/09/21 03/09/21 03/09/21 07:46 08:00 13:01 WBC RBC Hgb Hct MCV MCHC RDW Plt Count Lymph % (Auto) [place] % (Auto) [place] # (Auto) Seg Neutrophils % Seg Neuts % (Manual) Lymphocytes % (Manual) Monocytes % (Manual) Nucleated RBC % Seg Neutrophils # Seg Neutrophils # Man Lymphocytes # (Manual) Monocytes # (Manual) PT INR D-Dimer ABG pH POC ABG pCO2 POC ABG pO2 ABG pO2 ABG HCO3 ABG O2 Saturation ABG Base Excess ABG Hemoglobin ABG Oxyhemoglobin ABG Sodium ABG Potassium ABG Glucose Oxyhemoglobin Sodium Potassium Chloride Carbon Dioxide BUN Creatinine Glucose POC Glucose 191 H 182 H Lactic Acid Phosphorus Magnesium Ferritin Lactate Dehydrogenase C-Reactive Protein NT-Pro-B Natriuret Pep Total Protein Albumin Triglycerides Arterial Blood Glucose Ur Specific [place] Coronavirus (PCR) Positive A 03/09/21 03/09/21 03/09/21 15:19 17:48 18:10 WBC RBC Hgb Hct MCV MCHC RDW Plt Count Lymph % (Auto) [place] % (Auto) [place] # (Auto) Seg Neutrophils % Seg Neuts % (Manual) Lymphocytes % (Manual) Monocytes % (Manual) Nucleated RBC % Seg Neutrophils # Seg Neutrophils # Man Lymphocytes # (Manual) Monocytes # (Manual) PT INR D-Dimer ABG pH POC ABG pCO2 POC ABG pO2 ABG pO2 47.3 L ABG HCO3 26.3 H ABG O2 Saturation 83.7 L ABG Base Excess ABG Hemoglobin ABG Oxyhemoglobin ABG Sodium ABG Potassium ABG Glucose Oxyhemoglobin 82.1 L Sodium Potassium Chloride Carbon Dioxide BUN 29 H Creatinine Glucose 214 H POC Glucose 194 H Lactic Acid Phosphorus Magnesium Ferritin Lactate Dehydrogenase C-Reactive Protein NT-Pro-B Natriuret Pep Total Protein Albumin 3.4 L Triglycerides Arterial Blood Glucose Ur Specific [place] Coronavirus (PCR) 03/09/21 03/10/21 03/10/21 20:40 04:29 04:29 WBC 20.6 H RBC 5.07 H Hgb Hct 46.2 H MCV MCHC RDW Plt Count Lymph % (Auto) [place] % (Auto) [place] # (Auto) Seg Neutrophils % Seg Neuts % (Manual) 94.0 H Lymphocytes % (Manual) 1.0 L Monocytes % (Manual) Nucleated RBC % 3.0 H Seg Neutrophils # Seg Neutrophils # Man 19.4 H Lymphocytes # (Manual) 0.2 L Monocytes # (Manual) 1.0 H PT INR D-Dimer ABG pH POC ABG pCO2 POC ABG pO2 ABG pO2 ABG HCO3 ABG O2 Saturation ABG Base Excess ABG Hemoglobin ABG Oxyhemoglobin ABG Sodium ABG Potassium ABG Glucose Oxyhemoglobin Sodium Potassium Chloride Carbon Dioxide BUN 29 H Creatinine Glucose 188 H POC Glucose 176 H Lactic Acid Phosphorus Magnesium Ferritin Lactate Dehydrogenase C-Reactive Protein NT-Pro-B Natriuret Pep Total Protein Albumin 3.3 L Triglycerides Arterial Blood Glucose Ur Specific [place] Coronavirus (PCR) 03/10/21 03/10/21 03/10/21 05:22 10:27 15:25 WBC RBC Hgb Hct MCV MCHC RDW Plt Count Lymph % (Auto) [place] % (Auto) [place] # (Auto) Seg Neutrophils % Seg Neuts % (Manual) Lymphocytes % (Manual) Monocytes % (Manual) Nucleated RBC % Seg Neutrophils # Seg Neutrophils # Man Lymphocytes # (Manual) Monocytes # (Manual) PT INR D-Dimer ABG pH 7.488 H 7.488 H POC ABG pCO2 POC ABG pO2 ABG pO2 47.7 L 50.5 L ABG HCO3 ABG O2 Saturation 86.2 L 87.9 L ABG Base Excess ABG Hemoglobin ABG Oxyhemoglobin ABG Sodium ABG Potassium ABG Glucose Oxyhemoglobin 84.6 L 86.2 L Sodium Potassium Chloride Carbon Dioxide BUN Creatinine Glucose POC Glucose 155 H Lactic Acid Phosphorus Magnesium Ferritin Lactate Dehydrogenase C-Reactive Protein NT-Pro-B Natriuret Pep Total Protein Albumin Triglycerides Arterial Blood Glucose Ur Specific [place] Coronavirus (PCR) 03/10/21 03/10/21 03/11/21 18:10 18:55 00:07 WBC RBC Hgb Hct MCV MCHC RDW Plt Count Lymph % (Auto) [place] % (Auto) [place] # (Auto) Seg Neutrophils % Seg Neuts % (Manual) Lymphocytes % (Manual) Monocytes % (Manual) Nucleated RBC % Seg Neutrophils # Seg Neutrophils # Man Lymphocytes # (Manual) Monocytes # (Manual) PT INR D-Dimer ABG pH 7.343 L POC ABG pCO2 POC ABG pO2 ABG pO2 60.4 L ABG HCO3 27.9 H ABG O2 Saturation 88.7 L ABG Base Excess ABG Hemoglobin ABG Oxyhemoglobin ABG Sodium ABG Potassium ABG Glucose Oxyhemoglobin 86.9 L Sodium Potassium Chloride Carbon Dioxide BUN Creatinine Glucose POC Glucose 187 H 139 H Lactic Acid Phosphorus Magnesium Ferritin Lactate Dehydrogenase C-Reactive Protein NT-Pro-B Natriuret Pep Total Protein Albumin Triglycerides Arterial Blood Glucose Ur Specific [place] Coronavirus (PCR) 03/11/21 03/11/21 03/11/21 02:09 04:28 08:06 WBC RBC Hgb Hct MCV MCHC RDW Plt Count Lymph % (Auto) [place] % (Auto) [place] # (Auto) Seg Neutrophils % Seg Neuts % (Manual) Lymphocytes % (Manual) Monocytes % (Manual) Nucleated RBC % Seg Neutrophils # Seg Neutrophils # Man Lymphocytes # (Manual) Monocytes # (Manual) PT INR D-Dimer ABG pH 7.277 L POC ABG pCO2 55.9 H POC ABG pO2 54.4 L ABG pO2 ABG HCO3 ABG O2 Saturation ABG Base Excess ABG Hemoglobin ABG Oxyhemoglobin 83.0 L ABG Sodium ABG Potassium 4.8 H ABG Glucose 180 H Oxyhemoglobin Sodium Potassium Chloride Carbon Dioxide BUN 38 H Creatinine Glucose 249 H POC Glucose 278 H Lactic Acid Phosphorus Magnesium Ferritin Lactate Dehydrogenase C-Reactive Protein NT-Pro-B Natriuret Pep Total Protein Albumin 3.2 L Triglycerides Arterial Blood Glucose 180 H Ur Specific [place] Coronavirus (PCR) 03/11/21 03/11/21 03/11/21 11:29 15:06 15:48 WBC RBC Hgb Hct MCV MCHC RDW Plt Count Lymph % (Auto) [place] % (Auto) [place] # (Auto) Seg Neutrophils % Seg Neuts % (Manual) Lymphocytes % (Manual) Monocytes % (Manual) Nucleated RBC % Seg Neutrophils # Seg Neutrophils # Man Lymphocytes # (Manual) Monocytes # (Manual) PT INR D-Dimer ABG pH 7.260 L POC ABG pCO2 POC ABG pO2 ABG pO2 53.5 L ABG HCO3 29.5 H ABG O2 Saturation 84.0 L ABG Base Excess ABG Hemoglobin ABG Oxyhemoglobin ABG Sodium ABG Potassium ABG Glucose Oxyhemoglobin 82.3 L Sodium Potassium Chloride Carbon Dioxide BUN Creatinine Glucose POC Glucose 288 H 295 H Lactic Acid Phosphorus Magnesium Ferritin Lactate Dehydrogenase C-Reactive Protein NT-Pro-B Natriuret Pep Total Protein Albumin Triglycerides Arterial Blood Glucose Ur Specific [place] Coronavirus (PCR) 03/12/21 03/12/21 03/12/21 00:01 05:24 08:03 WBC RBC Hgb Hct MCV MCHC RDW Plt Count Lymph % (Auto) [place] % (Auto) [place] # (Auto) Seg Neutrophils % Seg Neuts % (Manual) Lymphocytes % (Manual) Monocytes % (Manual) Nucleated RBC % Seg Neutrophils # Seg Neutrophils # Man Lymphocytes # (Manual) Monocytes # (Manual) PT INR D-Dimer ABG pH POC ABG pCO2 POC ABG pO2 ABG pO2 ABG HCO3 ABG O2 Saturation ABG Base Excess ABG Hemoglobin ABG Oxyhemoglobin ABG Sodium ABG Potassium ABG Glucose Oxyhemoglobin Sodium 135 L Potassium Chloride Carbon Dioxide BUN 48 H Creatinine Glucose 358 H POC Glucose 304 H 310 H Lactic Acid Phosphorus Magnesium Ferritin Lactate Dehydrogenase C-Reactive Protein NT-Pro-B Natriuret Pep Total Protein 6.0 L Albumin 2.9 L Triglycerides Arterial Blood Glucose Ur Specific [place] Coronavirus (PCR) 03/12/21 03/12/21 03/12/21 08:03 10:43 11:31 WBC 14.6 H RBC Hgb Hct MCV MCHC RDW Plt Count Lymph % (Auto) [place] % (Auto) [place] # (Auto) Seg Neutrophils % Seg Neuts % (Manual) Lymphocytes % (Manual) Monocytes % (Manual) Nucleated RBC % Seg Neutrophils # Seg Neutrophils # Man Lymphocytes # (Manual) Monocytes # (Manual) PT INR D-Dimer ABG pH 7.248 L POC ABG pCO2 POC ABG pO2 ABG pO2 73.7 L ABG HCO3 32.0 H ABG O2 Saturation 93.9 L ABG Base Excess ABG Hemoglobin ABG Oxyhemoglobin ABG Sodium ABG Potassium ABG Glucose Oxyhemoglobin 92.1 L Sodium Potassium Chloride Carbon Dioxide BUN Creatinine Glucose POC Glucose 359 H Lactic Acid Phosphorus Magnesium Ferritin Lactate Dehydrogenase C-Reactive Protein NT-Pro-B Natriuret Pep Total Protein Albumin Triglycerides Arterial Blood Glucose Ur Specific [place] Coronavirus (PCR) 03/12/21 03/12/21 03/13/21 17:20 21:54 00:02 WBC RBC Hgb Hct MCV MCHC RDW Plt Count Lymph % (Auto) [place] % (Auto) [place] # (Auto) Seg Neutrophils % Seg Neuts % (Manual) Lymphocytes % (Manual) Monocytes % (Manual) Nucleated RBC % Seg Neutrophils # Seg Neutrophils # Man Lymphocytes # (Manual) Monocytes # (Manual) PT INR D-Dimer ABG pH 7.238 L POC ABG pCO2 71.9 H POC ABG pO2 53.6 L ABG pO2 ABG HCO3 ABG O2 Saturation ABG Base Excess ABG Hemoglobin ABG Oxyhemoglobin 84.8 L ABG Sodium 134.2 L ABG Potassium 4.9 H ABG Glucose 306 H Oxyhemoglobin Sodium Potassium Chloride Carbon Dioxide BUN Creatinine Glucose POC Glucose 374 H 308 H Lactic Acid Phosphorus Magnesium Ferritin Lactate Dehydrogenase C-Reactive Protein NT-Pro-B Natriuret Pep Total Protein Albumin Triglycerides Arterial Blood Glucose 306 H Ur Specific [place] Coronavirus (PCR) 03/13/21 03/13/21 03/13/21 05:22 05:44 05:44 WBC 13.9 H RBC Hgb Hct MCV MCHC RDW Plt Count Lymph % (Auto) [place] % (Auto) [place] # (Auto) Seg Neutrophils % Seg Neuts % (Manual) Lymphocytes % (Manual) Monocytes % (Manual) Nucleated RBC % Seg Neutrophils # Seg Neutrophils # Man Lymphocytes # (Manual) Monocytes # (Manual) PT INR D-Dimer 3567.97 H ABG pH POC ABG pCO2 POC ABG pO2 ABG pO2 ABG HCO3 ABG O2 Saturation ABG Base Excess ABG Hemoglobin ABG Oxyhemoglobin ABG Sodium ABG Potassium ABG Glucose Oxyhemoglobin Sodium Potassium Chloride Carbon Dioxide BUN Creatinine Glucose POC Glucose 316 H Lactic Acid Phosphorus Magnesium Ferritin Lactate Dehydrogenase C-Reactive Protein NT-Pro-B Natriuret Pep Total Protein Albumin Triglycerides Arterial Blood Glucose Ur Specific [place] Coronavirus (PCR) 03/13/21 03/13/21 03/13/21 05:44 05:44 11:15 WBC RBC Hgb Hct MCV MCHC RDW Plt Count Lymph % (Auto) [place] % (Auto) [place] # (Auto) Seg Neutrophils % Seg Neuts % (Manual) Lymphocytes % (Manual) Monocytes % (Manual) Nucleated RBC % Seg Neutrophils # Seg Neutrophils # Man Lymphocytes # (Manual) Monocytes # (Manual) PT INR D-Dimer ABG pH 7.310 L POC ABG pCO2 POC ABG pO2 ABG pO2 52.3 L ABG HCO3 34.1 H ABG O2 Saturation 86.8 L ABG Base Excess 5.5 H ABG Hemoglobin 13.8 L ABG Oxyhemoglobin ABG Sodium ABG Potassium ABG Glucose Oxyhemoglobin 85.1 L Sodium Potassium Chloride Carbon Dioxide BUN Creatinine Glucose POC Glucose Lactic Acid Phosphorus Magnesium Ferritin 858.7 H Lactate Dehydrogenase 348 H C-Reactive Protein 2.80 H NT-Pro-B Natriuret Pep Total Protein Albumin Triglycerides Arterial Blood Glucose Ur Specific [place] Coronavirus (PCR) 03/13/21 03/13/21 03/13/21 11:21 15:47 19:23 WBC RBC Hgb Hct MCV MCHC RDW Plt Count Lymph % (Auto) [place] % (Auto) [place] # (Auto) Seg Neutrophils % Seg Neuts % (Manual) Lymphocytes % (Manual) Monocytes % (Manual) Nucleated RBC % Seg Neutrophils # Seg Neutrophils # Man Lymphocytes # (Manual) Monocytes # (Manual) PT INR D-Dimer ABG pH POC ABG pCO2 POC ABG pO2 ABG pO2 ABG HCO3 ABG O2 Saturation ABG Base Excess ABG Hemoglobin ABG Oxyhemoglobin ABG Sodium ABG Potassium ABG Glucose Oxyhemoglobin Sodium 136 L Potassium 5.9 H Chloride Carbon Dioxide BUN 50 H Creatinine Glucose 397 H POC Glucose 322 H 317 H Lactic Acid Phosphorus Magnesium Ferritin Lactate Dehydrogenase C-Reactive Protein NT-Pro-B Natriuret Pep Total Protein Albumin Triglycerides Arterial Blood Glucose Ur Specific [place] Coronavirus (PCR) 03/13/21 03/14/21 03/14/21 23:46 05:32 05:50 WBC 11.6 H RBC Hgb Hct MCV MCHC RDW Plt Count Lymph % (Auto) [place] % (Auto) [place] # (Auto) Seg Neutrophils % Seg Neuts % (Manual) Lymphocytes % (Manual) Monocytes % (Manual) Nucleated RBC % Seg Neutrophils # Seg Neutrophils # Man Lymphocytes # (Manual) Monocytes # (Manual) PT INR D-Dimer ABG pH POC ABG pCO2 POC ABG pO2 ABG pO2 ABG HCO3 ABG O2 Saturation ABG Base Excess ABG Hemoglobin ABG Oxyhemoglobin ABG Sodium ABG Potassium ABG Glucose Oxyhemoglobin Sodium Potassium Chloride Carbon Dioxide BUN Creatinine Glucose POC Glucose 332 H 316 H Lactic Acid Phosphorus Magnesium Ferritin Lactate Dehydrogenase C-Reactive Protein NT-Pro-B Natriuret Pep Total Protein Albumin Triglycerides Arterial Blood Glucose Ur Specific [place] Coronavirus (PCR) 03/14/21 03/14/21 03/14/21 05:50 11:33 16:53 WBC RBC Hgb Hct MCV MCHC RDW Plt Count Lymph % (Auto) [place] % (Auto) [place] # (Auto) Seg Neutrophils % Seg Neuts % (Manual) Lymphocytes % (Manual) Monocytes % (Manual) Nucleated RBC % Seg Neutrophils # Seg Neutrophils # Man Lymphocytes # (Manual) Monocytes # (Manual) PT INR D-Dimer ABG pH POC ABG pCO2 POC ABG pO2 ABG pO2 ABG HCO3 ABG O2 Saturation ABG Base Excess ABG Hemoglobin ABG Oxyhemoglobin ABG Sodium ABG Potassium ABG Glucose Oxyhemoglobin Sodium Potassium 5.9 H Chloride Carbon Dioxide 31 H BUN 48 H Creatinine Glucose 380 H POC Glucose 315 H 235 H Lactic Acid Phosphorus Magnesium 3.40 H Ferritin Lactate Dehydrogenase C-Reactive Protein NT-Pro-B Natriuret Pep Total Protein Albumin Triglycerides Arterial Blood Glucose Ur Specific [place] Coronavirus (PCR) 03/14/21 03/14/21 03/15/21 18:34 23:27 01:22 WBC RBC Hgb Hct 46.3 H MCV MCHC RDW Plt Count Lymph % (Auto) [place] % (Auto) [place] # (Auto) Seg Neutrophils % Seg Neuts % (Manual) Lymphocytes % (Manual) Monocytes % (Manual) Nucleated RBC % Seg Neutrophils # Seg Neutrophils # Man Lymphocytes # (Manual) Monocytes # (Manual) PT INR D-Dimer ABG pH POC ABG pCO2 POC ABG pO2 ABG pO2 ABG HCO3 ABG O2 Saturation ABG Base Excess ABG Hemoglobin ABG Oxyhemoglobin ABG Sodium ABG Potassium ABG Glucose Oxyhemoglobin Sodium 146 H Potassium Chloride Carbon Dioxide 34 H BUN 49 H Creatinine Glucose 285 H POC Glucose 203 H Lactic Acid Phosphorus Magnesium Ferritin Lactate Dehydrogenase C-Reactive Protein NT-Pro-B Natriuret Pep Total Protein Albumin Triglycerides Arterial Blood Glucose Ur Specific [place] Coronavirus (PCR) 03/15/21 03/15/21 03/15/21 04:00 06:06 06:06 WBC RBC Hgb Hct MCV MCHC RDW Plt Count Lymph % (Auto) [place] % (Auto) [place] # (Auto) Seg Neutrophils % Seg Neuts % (Manual) Lymphocytes % (Manual) Monocytes % (Manual) Nucleated RBC % Seg Neutrophils # Seg Neutrophils # Man Lymphocytes # (Manual) Monocytes # (Manual) PT INR D-Dimer 1781.79 H ABG pH POC ABG pCO2 POC ABG pO2 ABG pO2 ABG HCO3 ABG O2 Saturation ABG Base Excess ABG Hemoglobin ABG Oxyhemoglobin ABG Sodium ABG Potassium ABG Glucose Oxyhemoglobin Sodium 148 H Potassium 5.7 H D Chloride 108.0 H Carbon Dioxide 31 H BUN 46 H Creatinine Glucose 139 H POC Glucose Lactic Acid Phosphorus 4.80 H D Magnesium 3.00 H Ferritin 976.4 H Lactate Dehydrogenase 630 H C-Reactive Protein NT-Pro-B Natriuret Pep Total Protein Albumin Triglycerides Arterial Blood Glucose Ur Specific [place] Coronavirus (PCR) 03/15/21 03/15/21 03/15/21 11:56 14:05 17:09 WBC RBC Hgb Hct MCV MCHC RDW Plt Count Lymph % (Auto) [place] % (Auto) [place] # (Auto) Seg Neutrophils % Seg Neuts % (Manual) Lymphocytes % (Manual) Monocytes % (Manual) Nucleated RBC % Seg Neutrophils # Seg Neutrophils # Man Lymphocytes # (Manual) Monocytes # (Manual) PT INR D-Dimer ABG pH POC ABG pCO2 POC ABG pO2 ABG pO2 52.1 L ABG HCO3 36.6 H ABG O2 Saturation 87.6 L ABG Base Excess 9.5 H ABG Hemoglobin ABG Oxyhemoglobin ABG Sodium ABG Potassium ABG Glucose Oxyhemoglobin 85.7 L Sodium Potassium Chloride Carbon Dioxide BUN Creatinine Glucose POC Glucose 219 H 263 H Lactic Acid Phosphorus Magnesium Ferritin Lactate Dehydrogenase C-Reactive Protein NT-Pro-B Natriuret Pep Total Protein Albumin Triglycerides Arterial Blood Glucose Ur Specific [place] Coronavirus (PCR) 03/16/21 03/16/21 03/16/21 00:32 04:11 04:11 WBC 11.9 H RBC Hgb Hct MCV MCHC 30 L RDW Plt Count Lymph % (Auto) [place] % (Auto) [place] # (Auto) Seg Neutrophils % Seg Neuts % (Manual) Lymphocytes % (Manual) Monocytes % (Manual) Nucleated RBC % Seg Neutrophils # Seg Neutrophils # Man Lymphocytes # (Manual) Monocytes # (Manual) PT INR D-Dimer ABG pH POC ABG pCO2 POC ABG pO2 ABG pO2 ABG HCO3 ABG O2 Saturation ABG Base Excess ABG Hemoglobin ABG Oxyhemoglobin ABG Sodium ABG Potassium ABG Glucose Oxyhemoglobin Sodium 151 H Potassium Chloride Carbon Dioxide 35 H BUN 48 H Creatinine Glucose 152 H POC Glucose 165 H Lactic Acid Phosphorus Magnesium Ferritin Lactate Dehydrogenase C-Reactive Protein NT-Pro-B Natriuret Pep Total Protein Albumin Triglycerides Arterial Blood Glucose Ur Specific [place] Coronavirus (PCR) 03/16/21 03/16/21 03/16/21 04:11 05:26 11:35 WBC RBC Hgb Hct MCV MCHC RDW Plt Count Lymph % (Auto) [place] % (Auto) [place] # (Auto) Seg Neutrophils % Seg Neuts % (Manual) Lymphocytes % (Manual) Monocytes % (Manual) Nucleated RBC % Seg Neutrophils # Seg Neutrophils # Man Lymphocytes # (Manual) Monocytes # (Manual) PT INR D-Dimer ABG pH POC ABG pCO2 POC ABG pO2 ABG pO2 ABG HCO3 ABG O2 Saturation ABG Base Excess ABG Hemoglobin ABG Oxyhemoglobin ABG Sodium ABG Potassium ABG Glucose Oxyhemoglobin Sodium Potassium Chloride Carbon Dioxide BUN Creatinine Glucose POC Glucose 162 H 187 H Lactic Acid Phosphorus Magnesium Ferritin Lactate Dehydrogenase C-Reactive Protein NT-Pro-B Natriuret Pep Total Protein Albumin Triglycerides 267 H Arterial Blood Glucose Ur Specific [place] Coronavirus (PCR) 03/16/21 03/16/21 03/16/21 17:29 22:25 23:22 WBC RBC Hgb Hct MCV MCHC RDW Plt Count Lymph % (Auto) [place] % (Auto) [place] # (Auto) Seg Neutrophils % Seg Neuts % (Manual) Lymphocytes % (Manual) Monocytes % (Manual) Nucleated RBC % Seg Neutrophils # Seg Neutrophils # Man Lymphocytes # (Manual) Monocytes # (Manual) PT INR D-Dimer ABG pH POC ABG pCO2 POC ABG pO2 ABG pO2 ABG HCO3 ABG O2 Saturation ABG Base Excess ABG Hemoglobin ABG Oxyhemoglobin ABG Sodium ABG Potassium ABG Glucose Oxyhemoglobin Sodium Potassium Chloride Carbon Dioxide BUN Creatinine Glucose POC Glucose 237 H 165 H 189 H Lactic Acid Phosphorus Magnesium Ferritin Lactate Dehydrogenase C-Reactive Protein NT-Pro-B Natriuret Pep Total Protein Albumin Triglycerides Arterial Blood Glucose Ur Specific [place] Coronavirus (PCR) 03/17/21 03/17/21 03/17/21 04:40 04:40 04:40 WBC 14.1 H RBC Hgb Hct MCV MCHC RDW 15.3 H Plt Count Lymph % (Auto) 12.6 L [place] % (Auto) 11.3 H [place] # (Auto) 1.6 H Seg Neutrophils % 74.9 H Seg Neuts % (Manual) Lymphocytes % (Manual) Monocytes % (Manual) Nucleated RBC % Seg Neutrophils # 10.5 H Seg Neutrophils # Man Lymphocytes # (Manual) Monocytes # (Manual) PT INR D-Dimer 1359.12 H ABG pH POC ABG pCO2 POC ABG pO2 ABG pO2 ABG HCO3 ABG O2 Saturation ABG Base Excess ABG Hemoglobin ABG Oxyhemoglobin ABG Sodium ABG Potassium ABG Glucose Oxyhemoglobin Sodium 148 H Potassium Chloride 107.5 H Carbon Dioxide 33 H BUN 42 H Creatinine Glucose 183 H POC Glucose Lactic Acid Phosphorus Magnesium 2.70 H Ferritin Lactate Dehydrogenase C-Reactive Protein NT-Pro-B Natriuret Pep Total Protein Albumin Triglycerides Arterial Blood Glucose Ur Specific [place] Coronavirus (PCR) 03/17/21 03/17/21 03/17/21 05:53 11:05 11:51 WBC RBC Hgb Hct MCV MCHC RDW Plt Count Lymph % (Auto) [place] % (Auto) [place] # (Auto) Seg Neutrophils % Seg Neuts % (Manual) Lymphocytes % (Manual) Monocytes % (Manual) Nucleated RBC % Seg Neutrophils # Seg Neutrophils # Man Lymphocytes # (Manual) Monocytes # (Manual) PT INR D-Dimer ABG pH POC ABG pCO2 POC ABG pO2 ABG pO2 ABG HCO3 35.7 H ABG O2 Saturation ABG Base Excess 8.7 H ABG Hemoglobin ABG Oxyhemoglobin ABG Sodium ABG Potassium ABG Glucose Oxyhemoglobin 94.2 L Sodium Potassium Chloride Carbon Dioxide BUN Creatinine Glucose POC Glucose 176 H 197 H Lactic Acid Phosphorus Magnesium Ferritin Lactate Dehydrogenase C-Reactive Protein NT-Pro-B Natriuret Pep Total Protein Albumin Triglycerides Arterial Blood Glucose Ur Specific [place] Coronavirus (PCR) 03/17/21 03/17/21 03/17/21 16:54 21:10 23:33 WBC RBC Hgb Hct MCV MCHC RDW Plt Count Lymph % (Auto) [place] % (Auto) [place] # (Auto) Seg Neutrophils % Seg Neuts % (Manual) Lymphocytes % (Manual) Monocytes % (Manual) Nucleated RBC % Seg Neutrophils # Seg Neutrophils # Man Lymphocytes # (Manual) Monocytes # (Manual) PT INR D-Dimer ABG pH POC ABG pCO2 POC ABG pO2 ABG pO2 ABG HCO3 ABG O2 Saturation ABG Base Excess ABG Hemoglobin ABG Oxyhemoglobin ABG Sodium ABG Potassium ABG Glucose Oxyhemoglobin Sodium Potassium Chloride Carbon Dioxide BUN Creatinine Glucose POC Glucose 135 H 160 H 138 H Lactic Acid Phosphorus Magnesium Ferritin Lactate Dehydrogenase C-Reactive Protein NT-Pro-B Natriuret Pep Total Protein Albumin Triglycerides Arterial Blood Glucose Ur Specific [place] Coronavirus (PCR) 03/18/21 03/18/21 03/18/21 04:18 04:50 05:43 WBC RBC Hgb Hct MCV MCHC RDW Plt Count Lymph % (Auto) [place] % (Auto) [place] # (Auto) Seg Neutrophils % Seg Neuts % (Manual) Lymphocytes % (Manual) Monocytes % (Manual) Nucleated RBC % Seg Neutrophils # Seg Neutrophils # Man Lymphocytes # (Manual) Monocytes # (Manual) PT INR D-Dimer ABG pH POC ABG pCO2 POC ABG pO2 ABG pO2 59.8 L ABG HCO3 36.5 H ABG O2 Saturation 90.7 L ABG Base Excess 9.4 H ABG Hemoglobin 12.0 L ABG Oxyhemoglobin ABG Sodium ABG Potassium ABG Glucose Oxyhemoglobin 88.9 L Sodium Potassium Chloride 107.2 H Carbon Dioxide 34 H BUN 38 H Creatinine 0.7 L Glucose 136 H POC Glucose 128 H Lactic Acid Phosphorus Magnesium Ferritin Lactate Dehydrogenase C-Reactive Protein NT-Pro-B Natriuret Pep Total Protein Albumin Triglycerides Arterial Blood Glucose Ur Specific [place] Coronavirus (PCR) 03/18/21 03/18/21 03/18/21 11:20 17:35 23:35 WBC RBC Hgb Hct MCV MCHC RDW Plt Count Lymph % (Auto) [place] % (Auto) [place] # (Auto) Seg Neutrophils % Seg Neuts % (Manual) Lymphocytes % (Manual) Monocytes % (Manual) Nucleated RBC % Seg Neutrophils # Seg Neutrophils # Man Lymphocytes # (Manual) Monocytes # (Manual) PT INR D-Dimer ABG pH POC ABG pCO2 POC ABG pO2 ABG pO2 70.7 L ABG HCO3 33.6 H ABG O2 Saturation ABG Base Excess 8.0 H ABG Hemoglobin ABG Oxyhemoglobin ABG Sodium ABG Potassium ABG Glucose Oxyhemoglobin 93.7 L Sodium Potassium Chloride Carbon Dioxide BUN Creatinine Glucose POC Glucose 189 H 144 H Lactic Acid Phosphorus Magnesium Ferritin Lactate Dehydrogenase C-Reactive Protein NT-Pro-B Natriuret Pep Total Protein Albumin Triglycerides Arterial Blood Glucose Ur Specific [place] Coronavirus (PCR) 03/19/21 03/19/21 03/19/21 02:35 04:20 04:20 WBC 14.0 H RBC Hgb Hct MCV MCHC RDW Plt Count Lymph % (Auto) [place] % (Auto) [place] # (Auto) Seg Neutrophils % Seg Neuts % (Manual) Lymphocytes % (Manual) Monocytes % (Manual) Nucleated RBC % Seg Neutrophils # Seg Neutrophils # Man Lymphocytes # (Manual) Monocytes # (Manual) PT INR D-Dimer ABG pH POC ABG pCO2 POC ABG pO2 ABG pO2 ABG HCO3 32.0 H ABG O2 Saturation ABG Base Excess 5.2 H ABG Hemoglobin 13.6 L ABG Oxyhemoglobin ABG Sodium ABG Potassium ABG Glucose Oxyhemoglobin 94.6 L Sodium 146 H Potassium Chloride 109.3 H Carbon Dioxide BUN 36 H Creatinine Glucose 203 H POC Glucose Lactic Acid Phosphorus Magnesium Ferritin Lactate Dehydrogenase C-Reactive Protein NT-Pro-B Natriuret Pep Total Protein Albumin Triglycerides 254 H Arterial Blood Glucose Ur Specific [place] Coronavirus (PCR) 03/19/21 03/19/21 03/19/21 05:45 11:36 23:51 WBC RBC Hgb Hct MCV MCHC RDW Plt Count Lymph % (Auto) [place] % (Auto) [place] # (Auto) Seg Neutrophils % Seg Neuts % (Manual) Lymphocytes % (Manual) Monocytes % (Manual) Nucleated RBC % Seg Neutrophils # Seg Neutrophils # Man Lymphocytes # (Manual) Monocytes # (Manual) PT INR D-Dimer ABG pH POC ABG pCO2 POC ABG pO2 ABG pO2 ABG HCO3 ABG O2 Saturation ABG Base Excess ABG Hemoglobin ABG Oxyhemoglobin ABG Sodium ABG Potassium ABG Glucose Oxyhemoglobin Sodium Potassium Chloride Carbon Dioxide BUN Creatinine Glucose POC Glucose 164 H 172 H 140 H Lactic Acid Phosphorus Magnesium Ferritin Lactate Dehydrogenase C-Reactive Protein NT-Pro-B Natriuret Pep Total Protein Albumin Triglycerides Arterial Blood Glucose Ur Specific [place] Coronavirus (PCR) 03/20/21 03/20/21 03/20/21 03:29 04:45 04:45 WBC RBC Hgb Hct MCV 95 H MCHC RDW 15.7 H Plt Count Lymph % (Auto) [place] % (Auto) [place] # (Auto) Seg Neutrophils % Seg Neuts % (Manual) Lymphocytes % (Manual) Monocytes % (Manual) Nucleated RBC % Seg Neutrophils # Seg Neutrophils # Man Lymphocytes # (Manual) Monocytes # (Manual) PT INR D-Dimer ABG pH 7.349 L POC ABG pCO2 POC ABG pO2 ABG pO2 ABG HCO3 33.7 H ABG O2 Saturation ABG Base Excess 6.4 H ABG Hemoglobin 11.8 L ABG Oxyhemoglobin ABG Sodium ABG Potassium ABG Glucose Oxyhemoglobin 93.9 L Sodium 146 H Potassium 5.5 H Chloride 111.1 H Carbon Dioxide BUN 34 H Creatinine 0.7 L Glucose 145 H POC Glucose Lactic Acid Phosphorus Magnesium 2.50 H Ferritin Lactate Dehydrogenase C-Reactive Protein NT-Pro-B Natriuret Pep Total Protein Albumin Triglycerides Arterial Blood Glucose Ur Specific [place] Coronavirus (PCR) 03/20/21 03/20/21 03/20/21 05:41 09:08 11:54 WBC RBC Hgb Hct MCV MCHC RDW Plt Count Lymph % (Auto) [place] % (Auto) [place] # (Auto) Seg Neutrophils % Seg Neuts % (Manual) Lymphocytes % (Manual) Monocytes % (Manual) Nucleated RBC % Seg Neutrophils # Seg Neutrophils # Man Lymphocytes # (Manual) Monocytes # (Manual) PT INR D-Dimer ABG pH POC ABG pCO2 POC ABG pO2 ABG pO2 ABG HCO3 ABG O2 Saturation ABG Base Excess ABG Hemoglobin ABG Oxyhemoglobin ABG Sodium ABG Potassium ABG Glucose Oxyhemoglobin Sodium Potassium Chloride Carbon Dioxide BUN Creatinine Glucose POC Glucose 108 H 132 H 162 H Lactic Acid Phosphorus Magnesium Ferritin Lactate Dehydrogenase C-Reactive Protein NT-Pro-B Natriuret Pep Total Protein Albumin Triglycerides Arterial Blood Glucose Ur Specific [place] Coronavirus (PCR) 03/20/21 03/21/21 03/21/21 17:28 00:31 04:44 WBC RBC Hgb Hct MCV MCHC RDW Plt Count Lymph % (Auto) [place] % (Auto) [place] # (Auto) Seg Neutrophils % Seg Neuts % (Manual) Lymphocytes % (Manual) Monocytes % (Manual) Nucleated RBC % Seg Neutrophils # Seg Neutrophils # Man Lymphocytes # (Manual) Monocytes # (Manual) PT INR D-Dimer ABG pH POC ABG pCO2 POC ABG pO2 ABG pO2 ABG HCO3 ABG O2 Saturation ABG Base Excess ABG Hemoglobin ABG Oxyhemoglobin ABG Sodium ABG Potassium ABG Glucose Oxyhemoglobin Sodium Potassium Chloride 108.3 H Carbon Dioxide BUN 30 H Creatinine 0.7 L Glucose POC Glucose 160 H 122 H Lactic Acid Phosphorus Magnesium Ferritin Lactate Dehydrogenase C-Reactive Protein NT-Pro-B Natriuret Pep Total Protein Albumin Triglycerides Arterial Blood Glucose Ur Specific [place] Coronavirus (PCR) 03/21/21 03/21/21 03/21/21 09:18 10:09 13:20 WBC RBC Hgb Hct MCV MCHC RDW Plt Count Lymph % (Auto) [place] % (Auto) [place] # (Auto) Seg Neutrophils % Seg Neuts % (Manual) Lymphocytes % (Manual) Monocytes % (Manual) Nucleated RBC % Seg Neutrophils # Seg Neutrophils # Man Lymphocytes # (Manual) Monocytes # (Manual) PT INR D-Dimer ABG pH POC ABG pCO2 POC ABG pO2 ABG pO2 60.7 L ABG HCO3 30.6 H ABG O2 Saturation 93.6 L ABG Base Excess 5.3 H ABG Hemoglobin ABG Oxyhemoglobin ABG Sodium ABG Potassium ABG Glucose Oxyhemoglobin 91.7 L Sodium Potassium Chloride Carbon Dioxide BUN Creatinine Glucose POC Glucose 169 H 122 H Lactic Acid Phosphorus Magnesium Ferritin Lactate Dehydrogenase C-Reactive Protein NT-Pro-B Natriuret Pep Total Protein Albumin Triglycerides Arterial Blood Glucose Ur Specific [place] Coronavirus (PCR) 03/21/21 03/21/21 03/21/21 17:25 22:41 23:52 WBC RBC Hgb Hct MCV MCHC RDW Plt Count Lymph % (Auto) [place] % (Auto) [place] # (Auto) Seg Neutrophils % Seg Neuts % (Manual) Lymphocytes % (Manual) Monocytes % (Manual) Nucleated RBC % Seg Neutrophils # Seg Neutrophils # Man Lymphocytes # (Manual) Monocytes # (Manual) PT INR D-Dimer ABG pH POC ABG pCO2 POC ABG pO2 ABG pO2 ABG HCO3 ABG O2 Saturation ABG Base Excess ABG Hemoglobin ABG Oxyhemoglobin ABG Sodium ABG Potassium ABG Glucose Oxyhemoglobin Sodium Potassium Chloride Carbon Dioxide BUN Creatinine Glucose POC Glucose 121 H 139 H 140 H Lactic Acid Phosphorus Magnesium Ferritin Lactate Dehydrogenase C-Reactive Protein NT-Pro-B Natriuret Pep Total Protein Albumin Triglycerides Arterial Blood Glucose Ur Specific [place] Coronavirus (PCR) 03/22/21 03/22/21 03/22/21 05:58 07:26 07:26 WBC RBC Hgb Hct MCV MCHC 31 L RDW 16.1 H Plt Count Lymph % (Auto) [place] % (Auto) [place] # (Auto) Seg Neutrophils % Seg Neuts % (Manual) Lymphocytes % (Manual) Monocytes % (Manual) Nucleated RBC % Seg Neutrophils # Seg Neutrophils # Man Lymphocytes # (Manual) Monocytes # (Manual) PT INR D-Dimer ABG pH POC ABG pCO2 POC ABG pO2 ABG pO2 ABG HCO3 ABG O2 Saturation ABG Base Excess ABG Hemoglobin ABG Oxyhemoglobin ABG Sodium ABG Potassium ABG Glucose Oxyhemoglobin Sodium Potassium Chloride 108.5 H Carbon Dioxide BUN 44 H Creatinine Glucose 120 H POC Glucose 131 H Lactic Acid Phosphorus 5.80 H Magnesium 2.80 H Ferritin Lactate Dehydrogenase C-Reactive Protein NT-Pro-B Natriuret Pep Total Protein Albumin Triglycerides 305 H Arterial Blood Glucose Ur Specific [place] Coronavirus (PCR) 03/22/21 03/22/2122 09:38 11:15 16:01 WBC RBC Hgb Hct MCV MCHC RDW Plt Count Lymph % (Auto) [place] % (Auto) [place] # (Auto) Seg Neutrophils % Seg Neuts % (Manual) Lymphocytes % (Manual) Monocytes % (Manual) Nucleated RBC % Seg Neutrophils # Seg Neutrophils # Man Lymphocytes # (Manual) Monocytes # (Manual) PT INR D-Dimer ABG pH POC ABG pCO2 POC ABG pO2 ABG pO2 70.0 L ABG HCO3 30.0 H ABG O2 Saturation 94.6 L ABG Base Excess 3.6 H ABG Hemoglobin 13.5 L ABG Oxyhemoglobin ABG Sodium ABG Potassium ABG Glucose Oxyhemoglobin 92.5 L Sodium Potassium Chloride Carbon Dioxide BUN Creatinine Glucose POC Glucose 186 H 148 H Lactic Acid Phosphorus Magnesium Ferritin Lactate Dehydrogenase C-Reactive Protein NT-Pro-B Natriuret Pep Total Protein Albumin Triglycerides Arterial Blood Glucose Ur Specific [place] Coronavirus (PCR) 03/22/21 03/22/21 03/23/21 21:13 23:48 07:04 WBC 11.7 H RBC Hgb Hct MCV 95 H MCHC RDW 16.1 H Plt Count Lymph % (Auto) [place] % (Auto) [place] # (Auto) Seg Neutrophils % Seg Neuts % (Manual) Lymphocytes % (Manual) Monocytes % (Manual) Nucleated RBC % Seg Neutrophils # Seg Neutrophils # Man Lymphocytes # (Manual) Monocytes # (Manual) PT INR D-Dimer ABG pH POC ABG pCO2 POC ABG pO2 ABG pO2 ABG HCO3 ABG O2 Saturation ABG Base Excess ABG Hemoglobin ABG Oxyhemoglobin ABG Sodium ABG Potassium ABG Glucose Oxyhemoglobin Sodium Potassium Chloride Carbon Dioxide BUN Creatinine Glucose POC Glucose 121 H 114 H Lactic Acid Phosphorus Magnesium Ferritin Lactate Dehydrogenase C-Reactive Protein NT-Pro-B Natriuret Pep Total Protein Albumin Triglycerides Arterial Blood Glucose Ur Specific [place] Coronavirus (PCR) 03/23/21 03/23/21 03/23/21 07:04 08:35 11:19 WBC RBC Hgb Hct MCV MCHC RDW Plt Count Lymph % (Auto) [place] % (Auto) [place] # (Auto) Seg Neutrophils % Seg Neuts % (Manual) Lymphocytes % (Manual) Monocytes % (Manual) Nucleated RBC % Seg Neutrophils # Seg Neutrophils # Man Lymphocytes # (Manual) Monocytes # (Manual) PT INR D-Dimer ABG pH 7.345 L POC ABG pCO2 POC ABG pO2 ABG pO2 167.9 H ABG HCO3 32.2 H ABG O2 Saturation ABG Base Excess 4.8 H ABG Hemoglobin 13.4 L ABG Oxyhemoglobin ABG Sodium ABG Potassium ABG Glucose Oxyhemoglobin Sodium 148 H Potassium Chloride 111.3 H Carbon Dioxide 31 H BUN 31 H Creatinine Glucose 131 H POC Glucose 165 H Lactic Acid Phosphorus Magnesium 2.50 H Ferritin Lactate Dehydrogenase C-Reactive Protein NT-Pro-B Natriuret Pep Total Protein Albumin Triglycerides Arterial Blood Glucose Ur Specific [place] Coronavirus (PCR) 03/23/21 03/23/21 03/24/21 16:48 20:52 00:07 WBC RBC Hgb Hct MCV MCHC RDW Plt Count Lymph % (Auto) [place] % (Auto) [place] # (Auto) Seg Neutrophils % Seg Neuts % (Manual) Lymphocytes % (Manual) Monocytes % (Manual) Nucleated RBC % Seg Neutrophils # Seg Neutrophils # Man Lymphocytes # (Manual) Monocytes # (Manual) PT INR D-Dimer ABG pH POC ABG pCO2 POC ABG pO2 ABG pO2 ABG HCO3 ABG O2 Saturation ABG Base Excess ABG Hemoglobin ABG Oxyhemoglobin ABG Sodium ABG Potassium ABG Glucose Oxyhemoglobin Sodium Potassium Chloride Carbon Dioxide BUN Creatinine Glucose POC Glucose 160 H 127 H 147 H Lactic Acid Phosphorus Magnesium Ferritin Lactate Dehydrogenase C-Reactive Protein NT-Pro-B Natriuret Pep Total Protein Albumin Triglycerides Arterial Blood Glucose Ur Specific [place] Coronavirus (PCR) 03/24/21 03/24/21 03/24/21 04:34 04:34 05:20 WBC 13.3 H RBC Hgb Hct MCV MCHC 31 L RDW 16.1 H Plt Count Lymph % (Auto) [place] % (Auto) [place] # (Auto) Seg Neutrophils % Seg Neuts % (Manual) Lymphocytes % (Manual) Monocytes % (Manual) Nucleated RBC % Seg Neutrophils # Seg Neutrophils # Man Lymphocytes # (Manual) Monocytes # (Manual) PT INR D-Dimer ABG pH POC ABG pCO2 POC ABG pO2 ABG pO2 ABG HCO3 ABG O2 Saturation ABG Base Excess ABG Hemoglobin ABG Oxyhemoglobin ABG Sodium ABG Potassium ABG Glucose Oxyhemoglobin Sodium Potassium 5.2 H Chloride Carbon Dioxide BUN 28 H Creatinine 0.7 L Glucose 152 H POC Glucose 141 H Lactic Acid Phosphorus Magnesium Ferritin Lactate Dehydrogenase C-Reactive Protein NT-Pro-B Natriuret Pep Total Protein Albumin Triglycerides Arterial Blood Glucose Ur Specific [place] Coronavirus (PCR) 03/24/21 03/24/21 03/24/21 09:40 11:38 16:45 WBC RBC Hgb Hct MCV MCHC RDW Plt Count Lymph % (Auto) [place] % (Auto) [place] # (Auto) Seg Neutrophils % Seg Neuts % (Manual) Lymphocytes % (Manual) Monocytes % (Manual) Nucleated RBC % Seg Neutrophils # Seg Neutrophils # Man Lymphocytes # (Manual) Monocytes # (Manual) PT INR D-Dimer ABG pH POC ABG pCO2 POC ABG pO2 ABG pO2 ABG HCO3 ABG O2 Saturation ABG Base Excess ABG Hemoglobin ABG Oxyhemoglobin ABG Sodium ABG Potassium ABG Glucose Oxyhemoglobin Sodium Potassium Chloride Carbon Dioxide BUN Creatinine Glucose POC Glucose 126 H 136 H 118 H Lactic Acid Phosphorus Magnesium Ferritin Lactate Dehydrogenase C-Reactive Protein NT-Pro-B Natriuret Pep Total Protein Albumin Triglycerides Arterial Blood Glucose Ur Specific [place] Coronavirus (PCR) 03/24/21 03/24/21 03/25/21 21:03 23:49 04:32 WBC RBC Hgb Hct MCV MCHC RDW 16.1 H Plt Count 121 L Lymph % (Auto) [place] % (Auto) [place] # (Auto) Seg Neutrophils % Seg Neuts % (Manual) Lymphocytes % (Manual) Monocytes % (Manual) Nucleated RBC % Seg Neutrophils # Seg Neutrophils # Man Lymphocytes # (Manual) Monocytes # (Manual) PT INR D-Dimer ABG pH POC ABG pCO2 POC ABG pO2 ABG pO2 ABG HCO3 ABG O2 Saturation ABG Base Excess ABG Hemoglobin ABG Oxyhemoglobin ABG Sodium ABG Potassium ABG Glucose Oxyhemoglobin Sodium Potassium Chloride Carbon Dioxide BUN Creatinine Glucose POC Glucose 116 H 125 H Lactic Acid Phosphorus Magnesium Ferritin Lactate Dehydrogenase C-Reactive Protein NT-Pro-B Natriuret Pep Total Protein Albumin Triglycerides Arterial Blood Glucose Ur Specific [place] Coronavirus (PCR) 03/25/21 03/25/21 03/25/21 04:32 05:21 09:29 WBC RBC Hgb Hct MCV MCHC RDW Plt Count Lymph % (Auto) [place] % (Auto) [place] # (Auto) Seg Neutrophils % Seg Neuts % (Manual) Lymphocytes % (Manual) Monocytes % (Manual) Nucleated RBC % Seg Neutrophils # Seg Neutrophils # Man Lymphocytes # (Manual) Monocytes # (Manual) PT INR D-Dimer ABG pH POC ABG pCO2 POC ABG pO2 ABG pO2 ABG HCO3 ABG O2 Saturation ABG Base Excess ABG Hemoglobin ABG Oxyhemoglobin ABG Sodium ABG Potassium ABG Glucose Oxyhemoglobin Sodium 135 L D Potassium Chloride Carbon Dioxide BUN 25 H Creatinine 0.7 L Glucose 168 H POC Glucose 149 H 115 H Lactic Acid Phosphorus Magnesium Ferritin Lactate Dehydrogenase C-Reactive Protein NT-Pro-B Natriuret Pep Total Protein Albumin Triglycerides Arterial Blood Glucose Ur Specific [place] Coronavirus (PCR) 03/25/21 03/25/21 03/25/21 12:26 12:35 23:53 WBC RBC Hgb Hct MCV MCHC RDW Plt Count Lymph % (Auto) [place] % (Auto) [place] # (Auto) Seg Neutrophils % Seg Neuts % (Manual) Lymphocytes % (Manual) Monocytes % (Manual) Nucleated RBC % Seg Neutrophils # Seg Neutrophils # Man Lymphocytes # (Manual) Monocytes # (Manual) PT INR D-Dimer ABG pH POC ABG pCO2 POC ABG pO2 ABG pO2 100.5 H ABG HCO3 33.6 H ABG O2 Saturation ABG Base Excess 6.4 H ABG Hemoglobin 12.0 L ABG Oxyhemoglobin ABG Sodium ABG Potassium ABG Glucose Oxyhemoglobin Sodium Potassium Chloride Carbon Dioxide BUN Creatinine Glucose POC Glucose 108 H 137 H Lactic Acid Phosphorus Magnesium Ferritin Lactate Dehydrogenase C-Reactive Protein NT-Pro-B Natriuret Pep Total Protein Albumin Triglycerides Arterial Blood Glucose Ur Specific [place] Coronavirus (PCR) 03/26/21 03/26/21 03/26/21 05:14 07:09 07:09 WBC RBC Hgb Hct MCV MCHC RDW 16.5 H Plt Count 139 L Lymph % (Auto) [place] % (Auto) [place] # (Auto) Seg Neutrophils % Seg Neuts % (Manual) Lymphocytes % (Manual) Monocytes % (Manual) Nucleated RBC % Seg Neutrophils # Seg Neutrophils # Man Lymphocytes # (Manual) Monocytes # (Manual) PT INR D-Dimer ABG pH POC ABG pCO2 POC ABG pO2 ABG pO2 ABG HCO3 ABG O2 Saturation ABG Base Excess ABG Hemoglobin ABG Oxyhemoglobin ABG Sodium ABG Potassium ABG Glucose Oxyhemoglobin Sodium Potassium Chloride Carbon Dioxide BUN 22 H Creatinine 0.7 L Glucose 108 H POC Glucose 116 H Lactic Acid Phosphorus Magnesium Ferritin Lactate Dehydrogenase C-Reactive Protein NT-Pro-B Natriuret Pep Total Protein Albumin Triglycerides Arterial Blood Glucose Ur Specific [place] Coronavirus (PCR) 03/26/21 03/26/21 03/26/21 09:51 11:15 16:59 WBC RBC Hgb Hct MCV MCHC RDW Plt Count Lymph % (Auto) [place] % (Auto) [place] # (Auto) Seg Neutrophils % Seg Neuts % (Manual) Lymphocytes % (Manual) Monocytes % (Manual) Nucleated RBC % Seg Neutrophils # Seg Neutrophils # Man Lymphocytes # (Manual) Monocytes # (Manual) PT INR D-Dimer ABG pH POC ABG pCO2 POC ABG pO2 ABG pO2 ABG HCO3 ABG O2 Saturation ABG Base Excess ABG Hemoglobin ABG Oxyhemoglobin ABG Sodium ABG Potassium ABG Glucose Oxyhemoglobin Sodium Potassium Chloride Carbon Dioxide BUN Creatinine Glucose POC Glucose 107 H 119 H 174 H Lactic Acid Phosphorus Magnesium Ferritin Lactate Dehydrogenase C-Reactive Protein NT-Pro-B Natriuret Pep Total Protein Albumin Triglycerides Arterial Blood Glucose Ur Specific [place] Coronavirus (PCR) 03/26/21 03/27/21 22:18 07:08 WBC RBC Hgb Hct MCV MCHC RDW Plt Count Lymph % (Auto) [place] % (Auto) [place] # (Auto) Seg Neutrophils % Seg Neuts % (Manual) Lymphocytes % (Manual) Monocytes % (Manual) Nucleated RBC % Seg Neutrophils # Seg Neutrophils # Man Lymphocytes # (Manual) Monocytes # (Manual) PT INR D-Dimer ABG pH POC ABG pCO2 POC ABG pO2 ABG pO2 ABG HCO3 ABG O2 Saturation ABG Base Excess ABG Hemoglobin ABG Oxyhemoglobin ABG Sodium ABG Potassium ABG Glucose Oxyhemoglobin Sodium Potassium Chloride Carbon Dioxide BUN Creatinine Glucose POC Glucose 107 H 52 L Lactic Acid Phosphorus Magnesium Ferritin Lactate Dehydrogenase C-Reactive Protein NT-Pro-B Natriuret Pep Total Protein Albumin Triglycerides Arterial Blood Glucose Ur Specific [place] Coronavirus (PCR) Chest x-ray: pending Allied health notes reviewed: nursing
[2021-03-27 10:57] LABS: Blood Urea Nitrogen 18 mg/dL (9-20); Calcium 9.1 mg/dL (8.4-10.2); Hemolysis Index 16
[2021-03-27 11:02] LABS: Hematocrit 39.9 % (35.5-45.6); Hemoglobin 12.6 gm/dl (11.8-15.2); Mean Corpuscular HGB Conc 32 % (32-34); Mean Corpuscular Volume 95 fl (84-94); Platelet Count 134 K/mm3 (140-440); Red Cell Distribution Width 16.2 % (13.2-15.2)
[2021-03-27 11:22] LABS: BUN/Creatinine Ratio 26
--- NOTE | 2021-03-27 15:26 | Progress Note ---
Assessment and Plan Cultures: SARS CoV2 PCR: positive 03/08/2021 blood culture: no growth 03/10/2021 sputum culture: Usual respiratory marlyn 03/16/2021 blood culture: In process 03/18/2021 sputum culture: Stenotrophomonas A/P: 61-year-old male with diabetes, hypertension admitted to the hospital with complaints of shortness of breath and feeling weak for the last 1 week: #Sepsis secondary to bilateral pneumonia: secondary to COVID-19. Elevated inflammatory markers. WBC 22.6, creatinine 1.3, ferritin 877, CRP 18.0, LDH 624, procalcitonin 0.18. D-dimer >10k. CTA negative for pulmonary embolism, severe patchy groundglass opacities. #New fever: probably COVID related. #Acute hypoxic respiratory failure: initially required BiPAP, now intubated, on the vent. #DM #HTN Recs: -Start Bactrim for stenotrophomonas.. Planned 8 days -completed IV remdesivir -s/p Actemra 03/10/2021 -prophylactic anticoagulation based on d-dimer per hospital protocol Nayan Goins MD [facility] ([facility] O: [phone] F: [phone] Subjective Date of service: 03/27/21 Principal diagnosis: COVID-19 infection; DM II; Bilateral pneumonia; Obesity; HTN Interval history: Afebrile over the weekend, no acute changes. Remains on the vent. Objective - Exam Narrative Exam: Physical exam deferred to reduce risk of transmission of COVID-19. Please refer to primary team's note. - Constitutional Vitals: Vital Signs Temp Pulse Resp BP Pulse Ox 99.2 F 92 H 12 110/70 98 03/27/21 12:00 03/27/21 13:00 03/27/21 13:00 03/27/21 13:00 03/27/21 13:00 Temperature -Last 24 Hours Temperature 99.2 F Temperature 99.5 F Temperature 99.8 F Temperature 99.4 F Temperature 99.2 F Temperature 99 F - Labs CBC & Chem 7: 03/27/21 10:28 03/27/21 10:28 Labs: Abnormal lab results 03/26/21 03/26/21 03/27/21 Range/Units 16:59 22:18 07:08 MCV (84-94) fl RDW (13.2-15.2) % Plt Count (140-440) K/mm3 Sodium (137-145) mmol/L Creatinine (0.8-1.3) mg/dL Glucose (75-100) mg/dL POC Glucose 174 H 107 H 52 L (70-105) mg/dL 03/27/21 03/27/21 03/27/21 Range/Units 10:28 10:28 11:45 MCV 95 H (84-94) fl RDW 16.2 H (13.2-15.2) % Plt Count 134 L (140-440) K/mm3 Sodium 136 L (137-145) mmol/L Creatinine 0.7 L (0.8-1.3) mg/dL Glucose 150 H (75-100) mg/dL POC Glucose 121 H (70-105) mg/dL
--- NOTE | 2021-03-27 16:18 | Event Note ---
Date: 03/27/21 Patient chart reviewed. On vent - FIO2 50%, PEEP 8. On lovenox 60mg IV daily. Elvin TF. 1. Trach/PEG scheduled for Saturday03/29/21 @1430. Consent on chart. 2. Hold TF at [place] 03/29/21 3. Hold Lovenox day before procedure 4. vent management per ICU team
[2021-03-27] MEDS ORDERED: INSULIN GLARGINE 100 UNITS/ML SUB-Q SCH (22:00)
[2021-03-28] MEDS: chlordiazePOXIDE 25 MG CAP PO SCH ×5 (00:20→23:50)
[2021-03-28] MEDS: INSULIN LISPRO 100 UNIT/ML SUB-Q SCH ×5 (00:20→23:51)
[2021-03-28] MEDS: PE/MO/PET,WH 10 APPLIC/28 GM TUBE PR PRN (03:50)
[2021-03-28] MEDS: hydrALAZINE 25 MG TAB PO SCH ×3 (05:15→21:51)
[2021-03-28] MEDS: ACETAMINOPHEN 325 MG TAB PO PRN (05:15)
[2021-03-28] MEDS: fentaNYL DRIP Premix 2,000 MCG/100 ML BAG IV SCH ×3 (05:22→22:50)
[2021-03-28 07:43] LABS: Hematocrit 39.9 % (35.5-45.6); Hemoglobin 12.8 gm/dl (11.8-15.2); Mean Corpuscular HGB Conc 32 % (32-34); Mean Corpuscular Volume 94 fl (84-94); Red Blood Count 4.22 M/mm3 (3.65-5.03); Red Cell Distribution Width 16.4 % (13.2-15.2)
[2021-03-28 07:51] LABS: Platelet Count 140 K/mm3 (140-440)
[2021-03-28] MEDS: BUDESONIDE 0.25 MG/2 ML NEBU IH SCH ×2 (08:31→21:19)
[2021-03-28] MEDS: ARFORMOTEROL 15 MCG/2 ML NEBU IH SCH ×2 (08:31→21:18)
[2021-03-28 08:50] LABS: Blood Urea Nitrogen TNR mg/dL (9-20)
[2021-03-28 08:51] LABS: BUN/Creatinine Ratio TNR
[2021-03-28 08:52] LABS: Calcium TNR mg/dL (8.4-10.2); Hemolysis Index TNR
[2021-03-28] MEDS: METOPROLOL TARTRATE 25 MG TAB PO SCH ×2 (09:57→21:51)
[2021-03-28] MEDS: methylPREDNISolone Sod Succinate 40 MG/1 ML INJ IV SCH (09:57)
[2021-03-28] MEDS: ENOXAPARIN 60 MG/0.6 ML INJ SUB-Q SCH (09:58)
[2021-03-28] MEDS: ZINC SULFATE 220 MG CAP PO SCH ×2 (09:58→21:52)
[2021-03-28] MEDS: ASCORBIC ACID 500 MG TAB PO SCH ×2 (09:58→21:52)
[2021-03-28] MEDS: DOXAZOSIN 1 MG TAB PO SCH (09:58)
[2021-03-28] MEDS: SENNOSIDES/DOCUSATE SODIUM 8.6/50 MG TAB FEEDTUBE SCH ×2 (09:58→21:52)
[2021-03-28] MEDS: FAMOTIDINE 20 MG TAB FEEDTUBE SCH ×2 (09:58→21:51)
[2021-03-28] MEDS: QUEtiapine 100 MG TAB PO SCH ×2 (09:58→21:52)
--- NOTE | 2021-03-28 11:32 | Progress Note ---
<DEBBY ELLISON - Last Filed: 03/28/21 17:30> Assessment and Plan Assessment and plan: This is a 61-year-old male with past medical history of HTN and DM admitted for sepsis and acute hypoxic respiratory failure 2/2 COVID pneumonia requiring ventilatory support. Hospital Course to Date: 03/09: The patient was seen and evaluated today, and he was found to be hemodynamically stable. The patient is currently on BiPAP for possible COVID-19 pneumonia. He was started on Lovenox 1mg/kg for DVT ppx in the setting of d- dimer > 10,000. Infectious Disease was consulted. The patient is pending a TTE. 03/10: No acute events overnight, patient was intubated in the afternoon transferred to ICU 03/11: Patient started on Lantus, free water flushes increased, propofol drip resumed and oral antihypertensive added. 03/12: lantus increased, k at 5, will monitor. I updated his family and his stated that he is not vaccinated. He does have HTN and she will call the RN to update home medications. She did say he takes bystolic and amlopine. She inquired about ventilator and lab work. She had no further questions. 03/13: KVNG overnight. Patient remains hyperglycemic, basal insulin adjusted and increased to Q12hrs. Patient is overall net positive since admit X1 dose of IV lasix, repeat BMP this afternoon. 03/14: Failed SAT this am due to increase agitation, tachycardia and hypertension. Remains on propofol and fentanyl gtt. Hyperkalemia treated with PO kayaxalate. Patient responded to IV lasix yesterday additional dose again today for a net negative balance. Repeat BMP this afternoon. Insulin adjusted for hyperglycemia. 03/15: Remains encephalopathic, not following commansd. Orders placed for CT head/Brain and Neuro consulted. Rectal bleeding subsided, most likely due to hemorrhoids. H&H is stable will continue to monitor. Kayaxexalate for high K, repeat labs 4 to 6hrs post treatment. 03/16: Still agiated this am, CT head with no acute Abn. CXR and ABG noted- evolving pna and worsening hypoxia, now with low grade fevers. Sputum culture ordered, IV Abx added, ID on cosult. 03/17: This am ABG noted, hypoxia improved. Continue to wean FiO2 as tolerated. Still with low grade fevers, on IV Abx per ID. Still with periods of confusion despite sedation, seroquel increased. F/u CXR in the am 03/18: still very agitated especially when off sedation, with hypertension and tachycardia. Continue sedation for RASS -2, PRN antihypertensive for SPB greater than 160. This febrile this am, continue current IV abx per ID 03/19: Patient afebrile overnight, continue IV Abx per ID. ABG also improved this am, continue to wean FIO2 as tolerated. PRN antihypertensive for hypertension. 03/20: Hyperkalemia treated with Kayexalate, Good discontinued, vancomycin and cefepime stopped started Bactrim by ID. Steroid taper started. 03/21: BB started for hypertension, Seroquel increased for agitation and Librium started no acute events reported overnight. [facility] made vent changes 03/22: Adjustment to anxiolytics, respiratory rate on ventilator per [facility]. Patient noted to have bleeding hemorrhoids with clot, requested RN to remove bowel management system and will order Preparation H. 03/23: Given no confirmed DVT or PE (only superficial thrombus noted on Dopplers) therapeutic Lovenox changed to prophylactic Lovenox. Started on doxazosin to help with retention. Consulted surgery for tracheostomy and propofol discontinued. 03/24: Surgery consult completed, patient changed to prophylaxis anticoagulation, started on doxazosin yesterday with plans to remove Good catheter in 48 hours. Patient with slight hypokalemia today and given Kayexalate. No acute events reported overnight. 03/25: No acute events reported overnight. Patient remains on fentanyl drip and on CPAP trial this morning. 03/26: no acute events reported overnight. placed on CPAP this AM, remains on fent/librium. scheduled for trach/peg this week. 03/27: Hypoglycemic this am, will decreased lantus to Qhs. Plan for possible Trach and Peg by Gen Surg this am. Case management to arrange possible LTAC placement 03/28: KVNG overnight. Tolerating PST this am. Plan for trach and PEG tomorrow by Gen. Surgery, NPO after midnight. Assessment and Plan #Acute Hypoxic Respiratory Failure #COVID Pneumonia - Intubated on 03/10 due to worsen hypoxia on BIPAP - COVID swab positive - CXR showed bilateral patchy infiltrates - CT chest shows severe patchy multifocal groundglass airspace disease - Vent setting:PS-45%,8 PS-16 - AM ABG pending - CCM consulted, appreciate recommendations - Continue IV Steroids and Nebs per [facility] - keep patient net negative for better lung compliance - VAP bundle addressed - Aspiration precaution HOB above 30 - Daily SBT and SAT trials as tolerated - Daily ABG and CXR - Continue SPO2 monitoring for SPO2 goal above 92% - Plan for possible Trach/PEG by gen. Surgery #Sepsis #COVID Pneumonia #Leukocytosis #Lactic Acidosis- Resolved - COVID PCR positive - UA neg, Blood cultures and Sputum culture NGTD - repeat Bculture NGTD, 03/17 Sputum Cult + Stenotrophomonas - Infectious disease consulted, appreciate recommendation - S/p Actemra 03/10/2021 - Completed X5days course of IV remdesivir - Now on bactrim until 03/27 - Monitor WBC and temperature curve - Trend CBC #Neuro:Acute Encephalopathy - Intubated and sedated on fentanyl RASS -2 - CT head/brain no acute Abn. - On Seroquel and Librium - Avoid benzodiazepine to reduce the possibility of delirium - Prn analgesia for CPOT greater than 3 - Maintenance of sleep-wake cycle - Neurology on consult #CV: Hypertension - BP stable this am - 03/09 Echocardiogram shows a mildly dilated ascending aorta, normal LV systolic function, mild concentric LVH, LVEF 60 to 65% - Continue PO Hydralazine - PRN Antihypertensive for SBP above 160 - Continue Blood pressure monitoring per protocol #Hyponatremia - Low Na this am - FWF decreased - Strict intake and output - Avoid nephrotoxic medications; Renally dose medications - Good in place - Monitor and replace electrolytes as needed -Trend BMP #Elevated D-dimer - Most likely due to COVID - Bilateral lower extremity ultrasounds negative for DVT, superficial thrombus in left gastrocnemius vein - CTA chest shows no gross pulm embolism - H&H stable - Continue AC- Lovenox SubQ - SCDs to BLE while in bed - Transfuse hemoglobin less than 7 - Monitor for signs of bleeding #Endo:Type 2 DM - Hypoglycemic this am - Continue high dose SSI Q6hrs - Lantus decreased to qHs - Avoid Hypoglycemia The high probability of a clinically significant, sudden or life threatening deterioration of the [Respiratory, Endo, ID] system(s) required my full and direct attention, intervention and personal management. The aggregate critical care time was [60] minutes. This time is in addition to time spent performing reported procedures but includes the following: [x] Data Review and interpretation [x] Patient assessment and monitoring of vital signs [x] Documentation [x] Medication orders and management Disposition Plan: ICU Total Time Spent with Patient (Minutes): 60 History Interval history: Patient seen and examined at the bedside. Remains intubated and on sedation, RASS 0 to -1. Open eyes spontaneously but does not follow commands. KVNG overnight Hospitalist Physical - Constitutional Vitals: Temp Pulse Resp BP Pulse Ox 99 F 120 H 20 134/78 96 03/28/21 08:00 03/28/21 09:58 03/28/21 09:00 03/28/21 09:58 03/28/21 09:00 General appearance: Present: no acute distress, well-nourished, obese, other (Intubated and sedated) - EENT Eyes: Present: PERRL - Respiratory Respiratory effort: normal Respiratory: bilateral: rhonchi - Cardiovascular Rhythm: regular Heart Sounds: Present: S1 & S2 - Extremities Extremities: no ischemia, pulses intact, pulses symmetrical Extremity abnormal: edema - Peripheral Assessment Generalized Edema Type: Pitting Edema Degree: 2+ Capillary Refill: < 3 seconds Skin Temperature: Warm Peripheral Pulses: within normal limits - Abdominal General gastrointestinal: soft, non-distended, normal bowel sounds - Integumentary Integumentary: Present: warm, dry - Psychiatric Psychiatric: other (Intubated and sedated) - Neurologic Neurologic: other (Intubated and sedated) - Allied Health Allied health notes reviewed: nursing Results - Labs CBC & Chem 7: 03/28/21 07:14 03/28/21 07:14 Labs: Laboratory Last Values WBC 8.8 K/mm3 (4.5-11.0) 03/28/21 07:14 RBC 4.22 M/mm3 (3.65-5.03) 03/28/21 07:14 Hgb 12.8 gm/dl (11.8-15.2) 03/28/21 07:14 Hct 39.9 % (35.5-45.6) 03/28/21 07:14 MCV 94 fl (84-94) 03/28/21 07:14 MCH 30 pg (28-32) 03/28/21 07:14 MCHC 32 % (32-34) 03/28/21 07:14 RDW 16.4 % (13.2-15.2) H 03/28/21 07:14 Plt Count 140 K/mm3 (140-440) 03/28/21 07:14 Lymph % (Auto) 12.6 % (13.4-35.0) L 03/17/21 04:40 Wirt % (Auto) 11.3 % (0.0-7.3) H 03/17/21 04:40 Eos % (Auto) 0.4 % (0.0-4.3) 03/17/21 04:40 Baso % (Auto) 0.8 % (0.0-1.8) 03/17/21 04:40 Lymph # (Auto) 1.8 K/mm3 (1.2-5.4) 03/17/21 04:40 Wirt # (Auto) 1.6 K/mm3 (0.0-0.8) H 03/17/21 04:40 Eos # (Auto) 0.1 K/mm3 (0.0-0.4) 03/17/21 04:40 Baso # (Auto) 0.1 K/mm3 (0.0-0.1) 03/17/21 04:40 Add Manual Diff Complete 03/10/21 04:29 Total Counted 100 03/10/21 04:29 Seg Neutrophils % 74.9 % (40.0-70.0) H 03/17/21 04:40 Seg Neuts % (Manual) 94.0 % (40.0-70.0) H 03/10/21 04:29 Band Neutrophils % 0 % 03/10/21 04:29 Lymphocytes % (Manual) 1.0 % (13.4-35.0) L 03/10/21 04:29 Reactive Lymphs % (Man) 0 % 03/10/21 04:29 Monocytes % (Manual) 5.0 % (0.0-7.3) 03/10/21 04:29 Eosinophils % (Manual) 0 % (0.0-4.3) 03/10/21 04:29 Basophils % (Manual) 0 % (0.0-1.8) 03/10/21 04:29 Metamyelocytes % 0 % 03/10/21 04:29 Myelocytes % 0 % 03/10/21 04:29 Promyelocytes % 0 % 03/10/21 04:29 Blast Cells % 0 % 03/10/21 04:29 Nucleated RBC % 3.0 % (0.0-0.9) H 03/10/21 04:29 Seg Neutrophils # 10.5 K/mm3 (1.8-7.7) H 03/17/21 04:40 Seg Neutrophils # Man 19.4 K/mm3 (1.8-7.7) H 03/10/21 04:29 Band Neutrophils # 0.0 K/mm3 03/10/21 04:29 Lymphocytes # (Manual) 0.2 K/mm3 (1.2-5.4) L 03/10/21 04:29 Abs React Lymphs (Man) 0.0 K/mm3 03/10/21 04:29 Monocytes # (Manual) 1.0 K/mm3 (0.0-0.8) H 03/10/21 04:29 Eosinophils # (Manual) 0.0 K/mm3 (0.0-0.4) 03/10/21 04:29 Basophils # (Manual) 0.0 K/mm3 (0.0-0.1) 03/10/21 04:29 Metamyelocytes # 0.0 K/mm3 03/10/21 04:29 Myelocytes # 0.0 K/mm3 03/10/21 04:29 Promyelocytes # 0.0 K/mm3 03/10/21 04:29 Blast Cells # 0.0 K/mm3 03/10/21 04:29 WBC Morphology Not Reportable 03/10/21 04:29 Hypersegmented Neuts Not Reportable 03/10/21 04:29 Hyposegmented Neuts Not Reportable 03/10/21 04:29 Hypogranular Neuts Not Reportable 03/10/21 04:29 Smudge Cells Not Reportable 03/10/21 04:29 Toxic Granulation Not Reportable 03/10/21 04:29 Toxic Vacuolation Not Reportable 03/10/21 04:29 Dohle Bodies Not Reportable 03/10/21 04:29 Pelger-Huet Anomaly Not Reportable 03/10/21 04:29 Mely Rods Not Reportable 03/10/21 04:29 Platelet Estimate Consistent w auto 03/10/21 04:29 Clumped Platelets Not Reportable 03/10/21 04:29 Plt Clumps, EDTA Not Reportable 03/10/21 04:29 Large Platelets Not Reportable 03/10/21 04:29 Giant Platelets Not Reportable 03/10/21 04:29 Platelet Satelliting Not Reportable 03/10/21 04:29 Plt Morphology Comment Not Reportable 03/10/21 04:29 RBC Morphology Normal 03/10/21 04:29 Dimorphic RBCs Not Reportable 03/10/21 04:29 Polychromasia Not Reportable 03/10/21 04:29 Hypochromasia Not Reportable 03/10/21 04:29 Poikilocytosis Not Reportable 03/10/21 04:29 Anisocytosis Not Reportable 03/10/21 04:29 Microcytosis Not Reportable 03/10/21 04:29 Macrocytosis Not Reportable 03/10/21 04:29 Spherocytes Not Reportable 03/10/21 04:29 Pappenheimer Bodies Not Reportable 03/10/21 04:29 Sickle Cells Not Reportable 03/10/21 04:29 Target Cells Not Reportable 03/10/21 04:29 Tear Drop Cells Not Reportable 03/10/21 04:29 Ovalocytes Not Reportable 03/10/21 04:29 Helmet Cells Not Reportable 03/10/21 04:29 Longo-Kenly Bodies Not Reportable 03/10/21 04:29 [place] Rings Not Reportable 03/10/21 04:29 Shama Cells Not Reportable 03/10/21 04:29 Bite Cells Not Reportable 03/10/21 04:29 Crenated Cell Not Reportable 03/10/21 04:29 Elliptocytes Not Reportable 03/10/21 04:29 Acanthocytes (Spur) Not Reportable 03/10/21 04:29 Rouleaux Not Reportable 03/10/21 04:29 Hemoglobin C Crystals Not Reportable 03/10/21 04:29 Schistocytes Not Reportable 03/10/21 04:29 Malaria parasites Not Reportable 03/10/21 04:29 Shaheen Bodies Not Reportable 03/10/21 04:29 Hem Pathologist Commnt No 03/10/21 04:29 PT 16.1 Sec. (12.2-14.9) H 03/08/21 20:24 INR 1.17 (0.87-1.13) H 03/08/21 20:24 APTT 28.0 Sec. (24.2-36.6) 03/08/21 20:24 D-Dimer 1359.12 ng/mlDDU (0-234) H 03/17/21 04:40 ABG pH 7.353 pH Units (7.350-7.450) 03/25/21 12:35 POC ABG pCO2 71.9 mmHg (32.0-48.0) H 03/12/21 21:54 ABG pCO2 61.9 mm Hg 03/25/21 12:35 POC ABG pO2 53.6 mmHg (83-108) L 03/12/21 21:54 ABG pO2 100.5 mm Hg (80.0-90.0) H 03/25/21 12:35 POC ABG HCO3 30.0 03/12/21 21:54 ABG HCO3 33.6 mmol/L (20.0-26.0) H 03/25/21 12:35 ABG O2 Saturation 97.3 % (95.0-99.0) 03/25/21 12:35 ABG O2 Content 16.2 (0.0-44) 03/25/21 12:35 POC ABG Base Excess 0.5 03/12/21 21:54 ABG Base Excess 6.4 mmol/L (-2.0-3.0) H 03/25/21 12:35 ABG Hemoglobin 12.0 gm/dl (14.0-18.0) L 03/25/21 12:35 ABG Oxyhemoglobin 84.8 (94-98) L 03/12/21 21:54 ABG Carboxyhemoglobin 1.5 % (0.0-5.0) 03/25/21 12:35 ABG Methemoglobin 0.7 % (0.0-1.5) 03/25/21 12:35 ABG Sodium 134.2 mmol/L (136.0-145.0) L 03/12/21 21:54 ABG Potassium 4.9 mmol/L (3.40-4.50) H 03/12/21 21:54 ABG Chloride 99.0 mmol/L (98-107) 03/12/21 21:54 ABG Glucose 306 mg/dL (65-95) H 03/12/21 21:54 Oxyhemoglobin 95.2 % (95.0-99.0) 03/25/21 12:35 Carboxyhemoglobin 0.6 (0.5-1.5) 03/12/21 21:54 FiO2 50 % 03/25/21 12:35 FiO2 % 50.0 03/12/21 21:54 Sodium TNR 03/28/21 07:14 Potassium TNR 03/28/21 07:14 Chloride TNR 03/28/21 07:14 Carbon Dioxide TNR 03/28/21 07:14 Anion Gap TNR 03/28/21 07:14 BUN TNR 03/28/21 07:14 Creatinine TNR 03/28/21 07:14 Estimated GFR TNR 03/28/21 07:14 BUN/Creatinine Ratio TNR 03/28/21 07:14 Glucose TNR 03/28/21 07:14 POC Glucose 96 mg/dL (70-105) 03/28/21 05:24 Lactic Acid 1.90 mmol/L (0.7-2.0) 03/08/21 23:51 Calcium TNR 03/28/21 07:14 Phosphorus TNR 03/28/21 07:14 Magnesium TNR 03/28/21 07:14 Ferritin 976.4 ng/mL (30.0-300.0) H 03/15/21 04:00 Total Bilirubin 0.20 mg/dL (0.1-1.2) 03/12/21 08:03 AST 10 units/L (5-40) 03/12/21 08:03 ALT 16 units/L (7-56) 03/12/21 08:03 Alkaline Phosphatase 77 units/L (35-129) 03/12/21 08:03 Lactate Dehydrogenase 630 units/L (91-180) H 03/15/21 06:06 C-Reactive Protein 0.40 mg/dL (0.00-1.30) 03/17/21 04:40 NT-Pro-B Natriuret Pep 1053 pg/mL (0-900) H 03/08/21 20:24 Total Protein 6.0 g/dL (6.3-8.2) L 03/12/21 08:03 Albumin 2.9 g/dL (3.9-5) L 03/12/21 08:03 Albumin/Globulin Ratio 0.9 % 03/12/21 08:03 Triglycerides 305 mg/dL (2-149) H 03/22/21 07:26 Procalcitonin 0.05 ng/mL (<0.15) 03/17/21 04:40 Arterial Blood Glucose 306 mg/dL (65-95) H 03/12/21 21:54 Arterial Blood Ionized Calcium 5.0 mg/dL (4.6-5.3) 03/12/21 21:54 Urine Color Yellow (Yellow) 03/09/21 04:10 Urine Turbidity Slightly-cloudy (Clear) 03/09/21 04:10 Urine pH 5.0 (5.0-7.0) 03/09/21 04:10 Ur Specific [place] 1.041 (1.003-1.030) H 03/09/21 04:10 Urine Protein 100 mg/dl mg/dL (Negative) 03/09/21 04:10 Urine Glucose (UA) Neg mg/dL (Negative) 03/09/21 04:10 Urine Ketones Neg mg/dL (Negative) 03/09/21 04:10 Urine Blood Mod (Negative) 03/09/21 04:10 Urine Nitrite Neg (Negative) 03/09/21 04:10 Urine Bilirubin Neg (Negative) 03/09/21 04:10 Urine Urobilinogen 2.0 mg/dL (<2.0) 03/09/21 04:10 Ur Leukocyte Esterase Neg (Negative) 03/09/21 04:10 Urine WBC (Auto) 4.0 /HPF (0.0-6.0) 03/09/21 04:10 Urine RBC (Auto) 1.0 /HPF (0.0-6.0) 03/09/21 04:10 Urine Bacteria (Auto) 1+ /HPF (Negative) 03/09/21 04:10 Urine Mucus Few /HPF 03/09/21 04:10 Coronavirus (PCR) Positive (Negative) A 03/09/21 08:00 Miscellaneous Test Flexitest 1 03/16/21 13:14 Good/IV: Voiding Method Indwelling Catheter Active Medications - Current Medications Current Medications: Generic Name Dose Route Start Last Admin Trade Name Freq PRN Reason Stop Dose Admin Acetaminophen 650 mg 03/09/21 01:26 03/28/21 05:15 Acetaminophen 325 Mg Tab PO 650 mg Q4H PRN Administration Pain MILD(1-3)/Fever >100.5/RAYO Albuterol 2.5 mg 03/09/21 01:26 03/18/21 21:06 Albuterol 2.5 Mg/3 Ml Nebu IH 2.5 mg Q4HRT PRN Administration Shortness Of Breath Arformoterol Tartrate 15 mcg 03/11/21 20:00 03/28/21 08:31 Arformoterol 15 Mcg/2 Ml Nebu IH Not Given Q12HRT BLANCA Ascorbic Acid 500 mg 03/10/21 14:00 03/28/21 09:58 Ascorbic Acid 500 Mg Tab PO 500 mg BID BLANCA Administration Bisacodyl 10 mg 03/26/21 13:43 03/26/21 13:51 Bisacodyl 10 Mg Rect Supp PA 10 mg QDAY PRN Administration Constipation Budesonide 0.25 mg 03/11/21 20:00 03/28/21 08:31 Budesonide 0.25 Mg/2 Ml Nebu IH Not Given Q12HRT BLANCA Chlordiazepoxide HCl 75 mg 03/22/21 18:00 03/28/21 05:15 Chlordiazepoxide 25 Mg Cap PO 75 mg Q6HR BLANCA Administration Dextrose 0 ml 03/20/21 10:52 Dextrose 10% *Hypoglycemia IV PRN PRN Hypoglycemia Doxazosin Mesylate 1 mg 03/23/21 14:00 03/28/21 09:58 Doxazosin 1 Mg Tab PO 1 mg QDAY BLANCA Administration Enoxaparin Sodium 60 mg 03/24/21 10:00 03/28/21 09:58 Enoxaparin 60 Mg/0.6 Ml Inj SUB-Q 60 mg QDAY BLANCA Administration Protocol Famotidine 20 mg 03/12/21 22:00 03/28/21 09:58 Famotidine 20 Mg Tab FEEDTUBE 20 mg BID BLANCA Administration Hydralazine HCl 50 mg 03/23/21 14:26 03/28/21 05:15 Hydralazine 25 Mg Tab PO 50 mg Q8HR BLANCA Administration Hydrophilic Ointment 1 applic 03/10/21 15:39 Lip Therapy Vaseline TP Q2HR PRN Dry Lips Fentanyl Citrate 2,000 mcg in 100 mls @ 5.897 mls/hr 03/10/21 17:00 03/28/21 07:19 Fentanyl Drip Premix IV 2 mcg/kg/hr TITR BLANCA 11.793 mls/hr Titration Protocol 1 MCG/KG/HR Propofol 1,000 mg in 100 mls @ 3.507 mls/hr 03/11/21 17:00 03/22/21 18:02 Diprivan 10 Mg/Ml IV 0 mcg/kg/min TITR BLANCA 0 mls/hr Titration Protocol 5 MCG/KG/MIN Insulin Glargine 15 units 03/29/21 22:00 Insulin Glargine 100 Units/Ml SUB-Q QHS [facility] Insulin Human Lispro 0 unit 03/11/21 18:00 03/28/21 05:38 Insulin Lispro 100 Unit/Ml SUB-Q Not Given Q6HR [facility] Protocol Labetalol HCl 10 mg 03/12/21 21:13 03/21/21 16:54 Labetalol 20 Mg/4 Ml Inj IV 10 mg Q6H PRN Administration Blood Pressure Metoprolol Tartrate 12.5 mg 03/21/21 22:00 03/28/21 09:57 Metoprolol Tartrate 25 Mg Tab PO 12.5 mg BID [facility] Administration Midazolam HCl 2 mg 03/15/21 08:49 03/23/21 07:58 Midazolam 2 Mg/2 Ml Inj IV 2 mg Q2H PRN Administration VENT SYNCHRONY Multi-Ingred Cream/Lotion/Oil/Oint 1 applic 03/10/21 15:39 Mineral Oil/Petrolatum, White Ophth Oint 3.5 Gm OU Q4HR PRN Dry Eye(s) Ondansetron HCl 4 mg 03/09/21 01:26 Ondansetron 4 Mg/2 Ml Inj IV Q8H PRN Nausea And Vomiting Phenyleph/Shark Oil/Min Oil/Petrol 1 applic 03/22/21 17:35 03/28/21 03:50 Pe/Mo/Pet,Wh 10 Applic/28 Gm Tube PA 1 applic Q6HR PRN Administration Hemorrhoids Prednisone 10 mg 03/29/21 10:00 Prednisone 10 Mg Tab PO DAILY [facility] Quetiapine Fumarate 300 mg 03/21/21 22:00 03/28/21 09:58 Quetiapine 100 Mg Tab PO 300 mg BID BLANCA Administration Senna/Docusate Sodium 1 tab 03/10/21 22:00 03/28/21 09:58 Sennosides/Docusate Sodium 8.6/50 Mg Tab FEEDTUBE 1 tab BID BLANCA Administration Sodium Chloride 10 ml 03/09/21 10:00 03/28/21 09:59 Sodium Chloride 0.9% 10 Ml Flush Syringe IV 10 ml BID BLANCA Administration Sodium Chloride 10 ml 03/09/21 01:26 Sodium Chloride 0.9% 10 Ml Flush Syringe IV PRN PRN LINE FLUSH Sodium Chloride 10 ml 03/20/21 09:48 Sodium Chloride 0.9% 50 Ml Ivpb IV PRN PRN FLUSH Zinc Sulfate 220 mg 03/10/21 14:00 03/28/21 09:58 Zinc Sulfate 220 Mg Cap PO 220 mg BID BLANCA Administration Nutrition/Malnutrition Assess - Dietary Evaluation Nutrition/Malnutrition Findings: Nutrition Notes Start: 03/09/21 08:49 Freq: Status: Active Protocol: Document 03/27/21 14:48 BRIAN (Rec: 03/27/21 15:01 NHALL [id number]) Nutrition Notes Initial or Follow up Reassessment Current Diagnosis Diabetes,Sepsis,Hypertension, Respiratory Failure Other Pertinent Diagnosis COVID-19, Bilateral Pneumonia. Current Diet TF-Glucerna 1.2 at 40 ml/hr Labs/Tests BG 150 Na 136 (Na lab been <145 since 03/24) Pertinent Medications Solumedrol Height 5 ft 11 in Weight 122 kg [place] Body Weight (kg) 78.18 BMI 37.5 Weight Status Obese Subjective/Other Information Pt remains on vent support, but no longer receives propofol. RN informed of intent to increase TF goal rate. Percent of energy/protein needs met: 47% energy 45% pro Burn Absent Trauma Absent #1 Nutrition Diagnosis Inadequate oral intake Diagnosis Progress(for reassessment Continues documentation) Is patient on ventilator? Yes Is Patient Ambulatory and/or Out of Bed No REE-([facility]-confined to bed) 3732.140 Calculation Used for Recommendations 70-80% energy needs Additional Notes Energy needs: 5254-7346 kcal/ day Pro needs 1.3g/kg adjBW: 130g/ day Fluid needs 1ml/kcal Nutrition Intervention Nutrition Support: Increase TF goal rate to 70ml/ hr with 110ml water flush q4h. Kcal 2,016 Protein (gm) 101 Carbohydrates (gm) 192 Fat (gm) 101 Fluid (mL) 1,352 Fiber (gm) 27 Goal #1 TF tolerance Goal #2 TF to meet at least 75% energy and pro needs Follow-Up By: 03/31/21 Additional Comments F/U: TF goal rate increase/ tolerance, vent status, Na lab /water flush <ARABELLA CASTILLO - Last Filed: 03/28/21 18:25> Assessment and Plan Assessment and plan: I saw and evaluated the patient. I agree with the findings and the plan of care as documented in the Nurse Practitioner's~note, with the following corrections and additions. Hospitalist Physical - Constitutional Vitals: Temp Pulse Resp BP Pulse Ox 99.5 F 93 H 13 123/70 98 03/28/21 16:00 03/28/21 18:00 03/28/21 18:00 03/28/21 18:00 03/28/21 18:00 Results - Labs CBC & Chem 7: 03/28/21 07:14 03/28/21 07:14 Labs: Laboratory Last Values WBC 8.8 K/mm3 (4.5-11.0) 03/28/21 07:14 RBC 4.22 M/mm3 (3.65-5.03) 03/28/21 07:14 Hgb 12.8 gm/dl (11.8-15.2) 03/28/21 07:14 Hct 39.9 % (35.5-45.6) 03/28/21 07:14 MCV 94 fl (84-94) 03/28/21 07:14 MCH 30 pg (28-32) 03/28/21 07:14 MCHC 32 % (32-34) 03/28/21 07:14 RDW 16.4 % (13.2-15.2) H 03/28/21 07:14 Plt Count 140 K/mm3 (140-440) 03/28/21 07:14 Lymph % (Auto) 12.6 % (13.4-35.0) L 03/17/21 04:40 Wirt % (Auto) 11.3 % (0.0-7.3) H 03/17/21 04:40 Eos % (Auto) 0.4 % (0.0-4.3) 03/17/21 04:40 Baso % (Auto) 0.8 % (0.0-1.8) 03/17/21 04:40 Lymph # (Auto) 1.8 K/mm3 (1.2-5.4) 03/17/21 04:40 Wirt # (Auto) 1.6 K/mm3 (0.0-0.8) H 03/17/21 04:40 Eos # (Auto) 0.1 K/mm3 (0.0-0.4) 03/17/21 04:40 Baso # (Auto) 0.1 K/mm3 (0.0-0.1) 03/17/21 04:40 Add Manual Diff Complete 03/10/21 04:29 Total Counted 100 03/10/21 04:29 Seg Neutrophils % 74.9 % (40.0-70.0) H 03/17/21 04:40 Seg Neuts % (Manual) 94.0 % (40.0-70.0) H 03/10/21 04:29 Band Neutrophils % 0 % 03/10/21 04:29 Lymphocytes % (Manual) 1.0 % (13.4-35.0) L 03/10/21 04:29 Reactive Lymphs % (Man) 0 % 03/10/21 04:29 Monocytes % (Manual) 5.0 % (0.0-7.3) 03/10/21 04:29 Eosinophils % (Manual) 0 % (0.0-4.3) 03/10/21 04:29 Basophils % (Manual) 0 % (0.0-1.8) 03/10/21 04:29 Metamyelocytes % 0 % 03/10/21 04:29 Myelocytes % 0 % 03/10/21 04:29 Promyelocytes % 0 % 03/10/21 04:29 Blast Cells % 0 % 03/10/21 04:29 Nucleated RBC % 3.0 % (0.0-0.9) H 03/10/21 04:29 Seg Neutrophils # 10.5 K/mm3 (1.8-7.7) H 03/17/21 04:40 Seg Neutrophils # Man 19.4 K/mm3 (1.8-7.7) H 03/10/21 04:29 Band Neutrophils # 0.0 K/mm3 03/10/21 04:29 Lymphocytes # (Manual) 0.2 K/mm3 (1.2-5.4) L 03/10/21 04:29 Abs React Lymphs (Man) 0.0 K/mm3 03/10/21 04:29 Monocytes # (Manual) 1.0 K/mm3 (0.0-0.8) H 03/10/21 04:29 Eosinophils # (Manual) 0.0 K/mm3 (0.0-0.4) 03/10/21 04:29 Basophils # (Manual) 0.0 K/mm3 (0.0-0.1) 03/10/21 04:29 Metamyelocytes # 0.0 K/mm3 03/10/21 04:29 Myelocytes # 0.0 K/mm3 03/10/21 04:29 Promyelocytes # 0.0 K/mm3 03/10/21 04:29 Blast Cells # 0.0 K/mm3 03/10/21 04:29 WBC Morphology Not Reportable 03/10/21 04:29 Hypersegmented Neuts Not Reportable 03/10/21 04:29 Hyposegmented Neuts Not Reportable 03/10/21 04:29 Hypogranular Neuts Not Reportable 03/10/21 04:29 Smudge Cells Not Reportable 03/10/21 04:29 Toxic Granulation Not Reportable 03/10/21 04:29 Toxic Vacuolation Not Reportable 03/10/21 04:29 Dohle Bodies Not Reportable 03/10/21 04:29 Pelger-Huet Anomaly Not Reportable 03/10/21 04:29 Mely Rods Not Reportable 03/10/21 04:29 Platelet Estimate Consistent w auto 03/10/21 04:29 Clumped Platelets Not Reportable 03/10/21 04:29 Plt Clumps, EDTA Not Reportable 03/10/21 04:29 Large Platelets Not Reportable 03/10/21 04:29 Giant Platelets Not Reportable 03/10/21 04:29 Platelet Satelliting Not Reportable 03/10/21 04:29 Plt Morphology Comment Not Reportable 03/10/21 04:29 RBC Morphology Normal 03/10/21 04:29 Dimorphic RBCs Not Reportable 03/10/21 04:29 Polychromasia Not Reportable 03/10/21 04:29 Hypochromasia Not Reportable 03/10/21 04:29 Poikilocytosis Not Reportable 03/10/21 04:29 Anisocytosis Not Reportable 03/10/21 04:29 Microcytosis Not Reportable 03/10/21 04:29 Macrocytosis Not Reportable 03/10/21 04:29 Spherocytes Not Reportable 03/10/21 04:29 Pappenheimer Bodies Not Reportable 03/10/21 04:29 Sickle Cells Not Reportable 03/10/21 04:29 Target Cells Not Reportable 03/10/21 04:29 Tear Drop Cells Not Reportable 03/10/21 04:29 Ovalocytes Not Reportable 03/10/21 04:29 Helmet Cells Not Reportable 03/10/21 04:29 Longo-Kenly Bodies Not Reportable 03/10/21 04:29 [place] Rings Not Reportable 03/10/21 04:29 [place] Cells Not Reportable 03/10/21 04:29 Bite Cells Not Reportable 03/10/21 04:29 Crenated Cell Not Reportable 03/10/21 04:29 Elliptocytes Not Reportable 03/10/21 04:29 Acanthocytes (Spur) Not Reportable 03/10/21 04:29 Rouleaux Not Reportable 03/10/21 04:29 Hemoglobin C Crystals Not Reportable 03/10/21 04:29 Schistocytes Not Reportable 03/10/21 04:29 Malaria parasites Not Reportable 03/10/21 04:29 Shaheen Bodies Not Reportable 03/10/21 04:29 Hem Pathologist Commnt No 03/10/21 04:29 PT 16.1 Sec. (12.2-14.9) H 03/08/21 20:24 INR 1.17 (0.87-1.13) H 03/08/21 20:24 APTT 28.0 Sec. (24.2-36.6) 03/08/21 20:24 D-Dimer 1359.12 ng/mlDDU (0-234) H 03/17/21 04:40 ABG pH 7.353 pH Units (7.350-7.450) 03/25/21 12:35 POC ABG pCO2 71.9 mmHg (32.0-48.0) H 03/12/21 21:54 ABG pCO2 61.9 mm Hg 03/25/21 12:35 POC ABG pO2 53.6 mmHg (83-108) L 03/12/21 21:54 ABG pO2 100.5 mm Hg (80.0-90.0) H 03/25/21 12:35 POC ABG HCO3 30.0 03/12/21 21:54 ABG HCO3 33.6 mmol/L (20.0-26.0) H 03/25/21 12:35 ABG O2 Saturation 97.3 % (95.0-99.0) 03/25/21 12:35 ABG O2 Content 16.2 (0.0-44) 03/25/21 12:35 POC ABG Base Excess 0.5 03/12/21 21:54 ABG Base Excess 6.4 mmol/L (-2.0-3.0) H 03/25/21 12:35 ABG Hemoglobin 12.0 gm/dl (14.0-18.0) L 03/25/21 12:35 ABG Oxyhemoglobin 84.8 (94-98) L 03/12/21 21:54 ABG Carboxyhemoglobin 1.5 % (0.0-5.0) 03/25/21 12:35 ABG Methemoglobin 0.7 % (0.0-1.5) 03/25/21 12:35 ABG Sodium 134.2 mmol/L (136.0-145.0) L 03/12/21 21:54 ABG Potassium 4.9 mmol/L (3.40-4.50) H 03/12/21 21:54 ABG Chloride 99.0 mmol/L (98-107) 03/12/21 21:54 ABG Glucose 306 mg/dL (65-95) H 03/12/21 21:54 Oxyhemoglobin 95.2 % (95.0-99.0) 03/25/21 12:35 Carboxyhemoglobin 0.6 (0.5-1.5) 03/12/21 21:54 FiO2 50 % 03/25/21 12:35 FiO2 % 50.0 03/12/21 21:54 Sodium TNR 03/28/21 07:14 Potassium TNR 03/28/21 07:14 Chloride TNR 03/28/21 07:14 Carbon Dioxide TN 03/28/21 07:14 Anion Gap TN 03/28/21 07:14 BUN TNR 03/28/21 07:14 Creatinine TNR 03/28/21 07:14 Estimated GFR TN 03/28/21 07:14 BUN/Creatinine Ratio TN 03/28/21 07:14 Glucose TN 03/28/21 07:14 POC Glucose 145 mg/dL (70-105) H 03/28/21 11:42 Lactic Acid 1.90 mmol/L (0.7-2.0) 03/08/21 23:51 Calcium TNR 03/28/21 07:14 Phosphorus TN 03/28/21 07:14 Magnesium BANNER 03/28/21 07:14 Ferritin 976.4 ng/mL (30.0-300.0) H 03/15/21 04:00 Total Bilirubin 0.20 mg/dL (0.1-1.2) 03/12/21 08:03 AST 10 units/L (5-40) 03/12/21 08:03 ALT 16 units/L (7-56) 03/12/21 08:03 Alkaline Phosphatase 77 units/L (35-129) 03/12/21 08:03 Lactate Dehydrogenase 630 units/L (91-180) H 03/15/21 06:06 C-Reactive Protein 0.40 mg/dL (0.00-1.30) 03/17/21 04:40 NT-Pro-B Natriuret Pep 1053 pg/mL (0-900) H 03/08/21 20:24 Total Protein 6.0 g/dL (6.3-8.2) L 03/12/21 08:03 Albumin 2.9 g/dL (3.9-5) L 03/12/21 08:03 Albumin/Globulin Ratio 0.9 % 03/12/21 08:03 Triglycerides 305 mg/dL (2-149) H 03/22/21 07:26 Procalcitonin 0.05 ng/mL (<0.15) 03/17/21 04:40 Arterial Blood Glucose 306 mg/dL (65-95) H 03/12/21 21:54 Arterial Blood Ionized Calcium 5.0 mg/dL (4.6-5.3) 03/12/21 21:54 Urine Color Yellow (Yellow) 03/09/21 04:10 Urine Turbidity Slightly-cloudy (Clear) 03/09/21 04:10 Urine pH 5.0 (5.0-7.0) 03/09/21 04:10 Ur Specific [place] 1.041 (1.003-1.030) H 03/09/21 04:10 Urine Protein 100 mg/dl mg/dL (Negative) 03/09/21 04:10 Urine Glucose (UA) Neg mg/dL (Negative) 03/09/21 04:10 Urine Ketones Neg mg/dL (Negative) 03/09/21 04:10 Urine Blood Mod (Negative) 03/09/21 04:10 Urine Nitrite Neg (Negative) 03/09/21 04:10 Urine Bilirubin Neg (Negative) 03/09/21 04:10 Urine Urobilinogen 2.0 mg/dL (<2.0) 03/09/21 04:10 Ur Leukocyte Esterase Neg (Negative) 03/09/21 04:10 Urine WBC (Auto) 4.0 /HPF (0.0-6.0) 03/09/21 04:10 Urine RBC (Auto) 1.0 /HPF (0.0-6.0) 03/09/21 04:10 Urine Bacteria (Auto) 1+ /HPF (Negative) 03/09/21 04:10 Urine Mucus Few /HPF 03/09/21 04:10 Coronavirus (PCR) Positive (Negative) A 03/09/21 08:00 Miscellaneous Test Flexitest 1 03/16/21 13:14 Good/IV: Voiding Method Indwelling Catheter Active Medications - Current Medications Current Medications: Generic Name Dose Route Start Last Admin Trade Name Freq PRN Reason Stop Dose Admin Acetaminophen 650 mg 03/09/21 01:26 03/28/21 05:15 Acetaminophen 325 Mg Tab PO 650 mg Q4H PRN Administration Pain MILD(1-3)/Fever >100.5/RAYO Albuterol 2.5 mg 03/09/21 01:26 03/18/21 21:06 Albuterol 2.5 Mg/3 Ml Nebu IH 2.5 mg Q4HRT PRN Administration Shortness Of Breath Arformoterol Tartrate 15 mcg 03/11/21 20:00 03/28/21 08:31 Arformoterol 15 Mcg/2 Ml Nebu IH Not Given Q12HRT BLANCA Ascorbic Acid 500 mg 03/10/21 14:00 03/28/21 09:58 Ascorbic Acid 500 Mg Tab PO 500 mg BID BLANCA Administration Bisacodyl 10 mg 03/26/21 13:43 03/26/21 13:51 Bisacodyl 10 Mg Rect Supp PA 10 mg QDAY PRN Administration Constipation Budesonide 0.25 mg 03/11/21 20:00 03/28/21 08:31 Budesonide 0.25 Mg/2 Ml Nebu IH Not Given Q12HRT [facility] Chlordiazepoxide HCl 75 mg 03/22/21 18:00 03/28/21 18:02 Chlordiazepoxide 25 Mg Cap PO Not Given Q6HR [facility] Dextrose 0 ml 03/20/21 10:52 Dextrose 10% *Hypoglycemia IV PRN PRN Hypoglycemia Doxazosin Mesylate 1 mg 03/23/21 14:00 03/28/21 09:58 Doxazosin 1 Mg Tab PO 1 mg QDAY [facility] Administration Famotidine 20 mg 03/12/21 22:00 03/28/21 09:58 Famotidine 20 Mg Tab FEEDTUBE 20 mg BID [facility] Administration Hydralazine HCl 50 mg 03/23/21 14:26 03/28/21 05:15 Hydralazine 25 Mg Tab PO 50 mg Q8HR [facility] Administration Hydrophilic Ointment 1 applic 03/10/21 15:39 Lip Therapy Vaseline TP Q2HR PRN Dry Lips Fentanyl Citrate 2,000 mcg in 100 mls @ 5.897 mls/hr 03/10/21 17:00 03/28/21 07:19 Fentanyl Drip Premix IV 2 mcg/kg/hr TITR BLANCA 11.793 mls/hr Titration Protocol 1 MCG/KG/HR Propofol 1,000 mg in 100 mls @ 3.507 mls/hr 03/11/21 17:00 03/22/21 18:02 Diprivan 10 Mg/Ml IV 0 mcg/kg/min TITR BLANCA 0 mls/hr Titration Protocol 5 MCG/KG/MIN Insulin Glargine 15 units 03/29/21 22:00 Insulin Glargine 100 Units/Ml SUB-Q QHS [facility] Insulin Human Lispro 0 unit 03/11/21 18:00 03/28/21 12:41 Insulin Lispro 100 Unit/Ml SUB-Q Not Given Q6HR [facility] Protocol Labetalol HCl 10 mg 03/12/21 21:13 03/21/21 16:54 Labetalol 20 Mg/4 Ml Inj IV 10 mg Q6H PRN Administration Blood Pressure Metoprolol Tartrate 12.5 mg 03/21/21 22:00 03/28/21 09:57 Metoprolol Tartrate 25 Mg Tab PO 12.5 mg BID BLANCA Administration Midazolam HCl 2 mg 03/15/21 08:49 03/23/21 07:58 Midazolam 2 Mg/2 Ml Inj IV 2 mg Q2H PRN Administration VENT SYNCHRONY Multi-Ingred Cream/Lotion/Oil/Oint 1 applic 03/10/21 15:39 Mineral Oil/Petrolatum, White Ophth Oint 3.5 Gm OU Q4HR PRN Dry Eye(s) Ondansetron HCl 4 mg 03/09/21 01:26 Ondansetron 4 Mg/2 Ml Inj IV Q8H PRN Nausea And Vomiting Phenyleph/Shark Oil/Min Oil/Petrol 1 applic 03/22/21 17:35 03/28/21 03:50 Pe/Mo/Pet,Wh 10 Applic/28 Gm Tube PA 1 applic Q6HR PRN Administration Hemorrhoids Prednisone 10 mg 03/29/21 10:00 Prednisone 10 Mg Tab PO DAILY BLANCA Quetiapine Fumarate 300 mg 03/21/21 22:00 03/28/21 09:58 Quetiapine 100 Mg Tab PO 300 mg BID BLANCA Administration Senna/Docusate Sodium 1 tab 03/10/21 22:00 03/28/21 09:58 Sennosides/Docusate Sodium 8.6/50 Mg Tab FEEDTUBE 1 tab BID BLANCA Administration Sodium Chloride 10 ml 03/09/21 10:00 03/28/21 09:59 Sodium Chloride 0.9% 10 Ml Flush Syringe IV 10 ml BID BLANCA Administration Sodium Chloride 10 ml 03/09/21 01:26 Sodium Chloride 0.9% 10 Ml Flush Syringe IV PRN PRN LINE FLUSH Sodium Chloride 10 ml 03/20/21 09:48 Sodium Chloride 0.9% 50 Ml Ivpb IV PRN PRN FLUSH Zinc Sulfate 220 mg 03/10/21 14:00 03/28/21 09:58 Zinc Sulfate 220 Mg Cap PO 220 mg BID BLANCA Administration Nutrition/Malnutrition Assess - Dietary Evaluation Nutrition/Malnutrition Findings: Nutrition Notes Start: 03/09/21 08 :49 Freq: Status: Active Protocol: Document 03/27/21 14:48 BRIAN (Rec: 03/27/21 15:01 BRIAN [id number]) Nutrition Notes Initial or Follow up Reassessment Current Diagnosis Diabetes,Sepsis,Hypertension, Respiratory Failure Other Pertinent Diagnosis COVID-19, Bilateral Pneumonia. Current Diet TF-Glucerna 1.2 at 40 ml/hr Labs/Tests BG 150 Na 136 (Na lab been <145 since 03/24) Pertinent Medications Solumedrol Height 5 ft 11 in Weight 122 kg [place] Body Weight (kg) 78.18 BMI 37.5 Weight Status Obese Subjective/Other Information Pt remains on vent support, but no longer receives propofol. RN informed of intent to increase TF goal rate. Percent of energy/protein needs met: 47% energy 45% pro Burn Absent Trauma Absent #1 Nutrition Diagnosis Inadequate oral intake Diagnosis Progress(for reassessment Continues documentation) Is patient on ventilator? Yes Is Patient Ambulatory and/or Out of Bed No [facility] 2449.140 Calculation Used for Recommendations 70-80% energy needs Additional Notes Energy needs: 8426-1731 kcal/ day Pro needs 1.3g/kg adjBW: 130g/ day Fluid needs 1ml/kcal Nutrition Intervention Nutrition Support: Increase TF goal rate to 70ml/ hr with 110ml water flush q4h. Kcal 2,016 Protein (gm) 101 Carbohydrates (gm) 192 Fat (gm) 101 Fluid (mL) 1,352 Fiber (gm) 27 Goal #1 TF tolerance Goal #2 TF to meet at least 75% energy and pro needs Follow-Up By: 03/31/21 Additional Comments F/U: TF goal rate increase/ tolerance, vent status, Na lab /water flush
--- NOTE | 2021-03-28 11:40 | Progress Note ---
Assessment and Plan Acute hypoxemic respiratory failure, on continuous noninvasive ventilation COVID-19 infection Bilateral pneumonia History of diabetes Obesity Hypertension Leukocytosis Possible venous thromboembolic phenomena with significantly elevated D-dimers DM II Elevated serum inflammatory markers to include CRP levels, ferritin and LDH - ETT day # 19; awaiting tracheostomy - change Lovenox to 40 mg bid dosing - prn CXR's & ABG's at this point - continue Daily SAT and SBT assessment as tolerated - continue care as below otherwise; - continue to wean supplemental oxygen for target O2 sat's > 90% acutely - VAP bundle addressed - continue lung protective strategies - continue bronchodilators with pulmonary hygiene per RT - wean per pulmonary driven protocols otherwise - continue accuchecks with glycemic control per SSI (While critically ill target blood glucose of 140-180 mg/dL; avoid hypoglycemia) - sedation prn for target RASS 0 to -1 - avoid nephrotoxins, renally dose all medications - avoid benzodiazepine's, reduce the possibility of delirium - AB's per ID rec's - prn analgesia per pain score - Maintenance of sleep-wake cycle, avoid delirium - G.I. & VTE prophylaxis - PT/OT/ROM exercises - mobility protocols for pressure ulcer prophylaxis - Monitor hemodynamics closely - continue other care per attending / other consultants - discharge planning ongoing concurrently COVID SPECIFIC INTERVENTIONS - Remdesivir as per ID/Pulmonary developed protocols (received) - continue systemic steroids for severe COVID-19 infection empirically (Decadron) - follow repeat COVID tests results - zinc and vitamin C supplementation - Monitor inflammatory markers per facility protocol - ferritin, Ddimer, CRP - therapeutic anticoagulation per system Protocol based on d-dimer and clinical considerations (treatment dose) - Continue contact and airborne isolation .... Re-evaluate in am & prn CONDITION: CRITICAL PROGNOSIS: GUARDED CODE STATUS: FULL CODE The high probability of a clinically significant, sudden or life-threatening deterioration of the [respiratory, cardiovascular & hematologic] system(s) requ ired my full and direct attention, intervention and personal management. The aggregate critical care time was [32] minutes without overlap. Time includes spent on; [x] Data Review and interpretation [x] Patient assessment and monitoring of vital signs [x] Documentation [x] Medication orders and management Subjective Date of service: 03/28/21 Principal diagnosis: COVID-19 infection; DM II; Bilateral pneumonia; Obesity; HTN Interval history: Patient is seen today for: Acute hypoxemic respiratory failure; COVID-19 infection; DM II; Bilateral pneumonia; Obesity; HTN Seen and examined at bedside; 24hour events reviewed; nursing and respiratory care staff consulted; no adverse overnight events reported to me; resting in bed; remains on MVS; tentativel;y for trach in am; on SBT; no N/V/F/C Objective Vital Signs - 12hr 03/27/21 03/28/21 03/28/21 23:46 00:00 00:16 Temperature 98.8 F Pulse Rate 96 H 96 H 97 H Pulse Rate [ From Monitor] Respiratory 12 11 L 11 L Rate Blood Pressure 117/62 114/63 114/63 O2 Sat by Pulse 99 99 99 Oximetry 03/28/21 03/28/21 03/28/21 00:22 00:30 00:41 Temperature Pulse Rate 97 H 95 H 96 H Pulse Rate [ From Monitor] Respiratory 12 Rate Blood Pressure 124/70 124/70 O2 Sat by Pulse 99 96 Oximetry 03/28/21 03/28/21 03/28/21 00:46 01:00 01:16 Temperature Pulse Rate 97 H 97 H 96 H Pulse Rate [ From Monitor] Respiratory 14 14 13 Rate Blood Pressure 124/70 119/68 119/68 O2 Sat by Pulse 99 99 99 Oximetry 03/28/21 03/28/21 03/28/21 01:30 01:46 02:00 Temperature Pulse Rate 96 H 96 H 97 H Pulse Rate [ From Monitor] Respiratory 13 14 14 Rate Blood Pressure 125/64 125/64 123/67 O2 Sat by Pulse 99 98 99 Oximetry 03/28/21 03/28/21 03/28/21 02:16 02:30 02:46 Temperature Pulse Rate 97 H 97 H 97 H Pulse Rate [ From Monitor] Respiratory 14 15 16 Rate Blood Pressure 123/67 118/61 118/61 O2 Sat by Pulse 98 98 98 Oximetry 03/28/21 03/28/21 03/28/21 03:00 03:16 03:30 Temperature Pulse Rate 96 H 96 H 97 H Pulse Rate [ From Monitor] Respiratory 15 15 15 Rate Blood Pressure 124/70 124/70 132/72 O2 Sat by Pulse 97 98 98 Oximetry 03/28/21 03/28/21 03/28/21 03:46 04:00 04:16 Temperature 100.1 F H Pulse Rate 107 H 102 H 103 H Pulse Rate [ From Monitor] Respiratory 24 20 15 Rate Blood Pressure 132/72 132/72 132/72 O2 Sat by Pulse 95 95 95 Oximetry 03/28/21 03/28/21 03/28/21 04:30 04:42 04:46 Temperature Pulse Rate 105 H 103 H 103 H Pulse Rate [ From Monitor] Respiratory 21 20 Rate Blood Pressure 132/72 132/72 O2 Sat by Pulse 96 97 97 Oximetry 03/28/21 03/28/21 03/28/21 05:00 05:05 05:16 Temperature Pulse Rate 104 H 104 H 106 H Pulse Rate [ From Monitor] Respiratory 20 20 Rate Blood Pressure 145/76 145/76 O2 Sat by Pulse 97 97 Oximetry 03/28/21 03/28/21 03/28/21 05:30 05:46 06:00 Temperature Pulse Rate 105 H 106 H 105 H Pulse Rate [ From Monitor] Respiratory 20 20 19 Rate Blood Pressure 148/83 148/83 158/74 O2 Sat by Pulse 98 99 98 Oximetry 03/28/21 03/28/21 03/28/21 06:16 06:30 06:46 Temperature Pulse Rate 105 H 104 H 105 H Pulse Rate [ From Monitor] Respiratory 20 19 20 Rate Blood Pressure 158/74 153/84 153/84 O2 Sat by Pulse 99 99 98 Oximetry 03/28/21 03/28/21 03/28/21 07:00 07:16 07:30 Temperature Pulse Rate 108 H 130 H 122 H Pulse Rate [ From Monitor] Respiratory 24 36 H 31 H Rate Blood Pressure 146/80 146/80 170/97 O2 Sat by Pulse 97 99 96 Oximetry 03/28/21 03/28/21 03/28/21 07:46 08:00 08:16 Temperature 99 F Pulse Rate 116 H 112 H 110 H Pulse Rate [ 112 H From Monitor] Respiratory 26 H 22 23 Rate Blood Pressure 170/97 138/78 138/78 O2 Sat by Pulse 94 95 96 Oximetry 03/28/21 03/28/21 03/28/21 08:30 08:32 08:46 Temperature Pulse Rate 108 H 108 H 109 H Pulse Rate [ From Monitor] Respiratory 20 21 22 Rate Blood Pressure 129/72 129/72 129/72 O2 Sat by Pulse 95 96 95 Oximetry 03/28/21 03/28/21 03/28/21 09:00 09:57 09:58 Temperature Pulse Rate 109 H 120 H 120 H Pulse Rate [ From Monitor] Respiratory 20 Rate Blood Pressure 131/68 134/78 134/78 O2 Sat by Pulse 96 Oximetry Constitutional: no acute distress (sedated), other (elderly obese male with mildly increased respiratory effort at rest on MVS) Eyes: non-icteric ENT: oropharynx moist, other (ETT 24 cm CHAITANYA) Neck: supple, no lymphadenopathy, no JVD, other (large circumference) Effort: normal Ascultation: Bilateral: diminished breath sounds, rhonchi Percussion: Bilateral: not dull Cardiovascular: regular rate and rhythm, other (tachycardia, S1,S2) Gastrointestinal: normoactive bowel sounds, soft, non-tender, non-distended (protuberant) Integumentary: normal Extremities: no cyanosis, pulses normal, no ischemia or petechiae, edema Neurologic: non-focal exam (grossly), pupils equal and round, unable to assess, other (sedated) Psychiatric: other (unable to assess re: AMS) CBC and BMP: 03/29/21 04:50 03/29/21 04:50 ABG, PT/INR, D-dimer: ABG ABG pH 7.353 pH Units (7.350-7.450) 03/25/21 12:35 POC ABG pCO2 71.9 mmHg (32.0-48.0) H 03/12/21 21:54 ABG pCO2 61.9 mm Hg 03/25/21 12:35 POC ABG pO2 53.6 mmHg (83-108) L 03/12/21 21:54 ABG pO2 100.5 mm Hg (80.0-90.0) H 03/25/21 12:35 POC ABG HCO3 30.0 03/12/21 21:54 ABG O2 Saturation 97.3 % (95.0-99.0) 03/25/21 12:35 PT/INR, D-dimer PT 16.1 Sec. (12.2-14.9) H 03/08/21 20:24 INR 1.17 (0.87-1.13) H 03/08/21 20:24 D-Dimer 1359.12 ng/mlDDU (0-234) H 03/17/21 04:40 Abnormal lab findings: Abnormal Labs 03/08/21 03/08/21 03/08/21 20:24 20:24 20:24 WBC 22.6 H RBC 5.44 H Hgb 15.7 H Hct 49.2 H MCV MCHC RDW Plt Count Lymph % (Auto) [place] % (Auto) [place] # (Auto) Seg Neutrophils % Seg Neuts % (Manual) 83.0 H Lymphocytes % (Manual) 9.0 L Monocytes % (Manual) 8.0 H Nucleated RBC % Seg Neutrophils # Seg Neutrophils # Man 18.8 H Lymphocytes # (Manual) Monocytes # (Manual) 1.8 H PT 16.1 H INR 1.17 H D-Dimer > 38044 H ABG pH POC ABG pCO2 POC ABG pO2 ABG pO2 ABG HCO3 ABG O2 Saturation ABG Base Excess ABG Hemoglobin ABG Oxyhemoglobin ABG Sodium ABG Potassium ABG Glucose Oxyhemoglobin Sodium 136 L Potassium Chloride 93.9 L Carbon Dioxide BUN 29 H Creatinine Glucose 208 H POC Glucose Lactic Acid Phosphorus Magnesium Ferritin Lactate Dehydrogenase 624 H C-Reactive Protein 18.00 H NT-Pro-B Natriuret Pep 1053 H Total Protein Albumin Triglycerides Arterial Blood Glucose Ur Specific [place] Coronavirus (PCR) 03/08/21 03/08/21 03/09/21 20:24 20:24 04:10 WBC RBC Hgb Hct MCV MCHC RDW Plt Count Lymph % (Auto) [place] % (Auto) [place] # (Auto) Seg Neutrophils % Seg Neuts % (Manual) Lymphocytes % (Manual) Monocytes % (Manual) Nucleated RBC % Seg Neutrophils # Seg Neutrophils # Man Lymphocytes # (Manual) Monocytes # (Manual) PT INR D-Dimer ABG pH POC ABG pCO2 POC ABG pO2 ABG pO2 ABG HCO3 ABG O2 Saturation ABG Base Excess ABG Hemoglobin ABG Oxyhemoglobin ABG Sodium ABG Potassium ABG Glucose Oxyhemoglobin Sodium Potassium Chloride Carbon Dioxide BUN Creatinine Glucose POC Glucose Lactic Acid 2.10 H* Phosphorus Magnesium Ferritin 877.5 H Lactate Dehydrogenase C-Reactive Protein NT-Pro-B Natriuret Pep Total Protein Albumin Triglycerides Arterial Blood Glucose Ur Specific [place] 1.041 H Coronavirus (PCR) 03/09/21 03/09/21 03/09/21 07:46 08:00 13:01 WBC RBC Hgb Hct MCV MCHC RDW Plt Count Lymph % (Auto) [place] % (Auto) [place] # (Auto) Seg Neutrophils % Seg Neuts % (Manual) Lymphocytes % (Manual) Monocytes % (Manual) Nucleated RBC % Seg Neutrophils # Seg Neutrophils # Man Lymphocytes # (Manual) Monocytes # (Manual) PT INR D-Dimer ABG pH POC ABG pCO2 POC ABG pO2 ABG pO2 ABG HCO3 ABG O2 Saturation ABG Base Excess ABG Hemoglobin ABG Oxyhemoglobin ABG Sodium ABG Potassium ABG Glucose Oxyhemoglobin Sodium Potassium Chloride Carbon Dioxide BUN Creatinine Glucose POC Glucose 191 H 182 H Lactic Acid Phosphorus Magnesium Ferritin Lactate Dehydrogenase C-Reactive Protein NT-Pro-B Natriuret Pep Total Protein Albumin Triglycerides Arterial Blood Glucose Ur Specific [place] Coronavirus (PCR) Positive A 03/09/21 03/09/21 03/09/21 15:19 17:48 18:10 WBC RBC Hgb Hct MCV MCHC RDW Plt Count Lymph % (Auto) [place] % (Auto) [place] # (Auto) Seg Neutrophils % Seg Neuts % (Manual) Lymphocytes % (Manual) Monocytes % (Manual) Nucleated RBC % Seg Neutrophils # Seg Neutrophils # Man Lymphocytes # (Manual) Monocytes # (Manual) PT INR D-Dimer ABG pH POC ABG pCO2 POC ABG pO2 ABG pO2 47.3 L ABG HCO3 26.3 H ABG O2 Saturation 83.7 L ABG Base Excess ABG Hemoglobin ABG Oxyhemoglobin ABG Sodium ABG Potassium ABG Glucose Oxyhemoglobin 82.1 L Sodium Potassium Chloride Carbon Dioxide BUN 29 H Creatinine Glucose 214 H POC Glucose 194 H Lactic Acid Phosphorus Magnesium Ferritin Lactate Dehydrogenase C-Reactive Protein NT-Pro-B Natriuret Pep Total Protein Albumin 3.4 L Triglycerides Arterial Blood Glucose Ur Specific [place] Coronavirus (PCR) 03/09/21 03/10/21 03/10/21 20:40 04:29 04:29 WBC 20.6 H RBC 5.07 H Hgb Hct 46.2 H MCV MCHC RDW Plt Count Lymph % (Auto) [place] % (Auto) [place] # (Auto) Seg Neutrophils % Seg Neuts % (Manual) 94.0 H Lymphocytes % (Manual) 1.0 L Monocytes % (Manual) Nucleated RBC % 3.0 H Seg Neutrophils # Seg Neutrophils # Man 19.4 H Lymphocytes # (Manual) 0.2 L Monocytes # (Manual) 1.0 H PT INR D-Dimer ABG pH POC ABG pCO2 POC ABG pO2 ABG pO2 ABG HCO3 ABG O2 Saturation ABG Base Excess ABG Hemoglobin ABG Oxyhemoglobin ABG Sodium ABG Potassium ABG Glucose Oxyhemoglobin Sodium Potassium Chloride Carbon Dioxide BUN 29 H Creatinine Glucose 188 H POC Glucose 176 H Lactic Acid Phosphorus Magnesium Ferritin Lactate Dehydrogenase C-Reactive Protein NT-Pro-B Natriuret Pep Total Protein Albumin 3.3 L Triglycerides Arterial Blood Glucose Ur Specific [place] Coronavirus (PCR) 03/10/21 03/10/21 03/10/21 05:22 10:27 15:25 WBC RBC Hgb Hct MCV MCHC RDW Plt Count Lymph % (Auto) [place] % (Auto) [place] # (Auto) Seg Neutrophils % Seg Neuts % (Manual) Lymphocytes % (Manual) Monocytes % (Manual) Nucleated RBC % Seg Neutrophils # Seg Neutrophils # Man Lymphocytes # (Manual) Monocytes # (Manual) PT INR D-Dimer ABG pH 7.488 H 7.488 H POC ABG pCO2 POC ABG pO2 ABG pO2 47.7 L 50.5 L ABG HCO3 ABG O2 Saturation 86.2 L 87.9 L ABG Base Excess ABG Hemoglobin ABG Oxyhemoglobin ABG Sodium ABG Potassium ABG Glucose Oxyhemoglobin 84.6 L 86.2 L Sodium Potassium Chloride Carbon Dioxide BUN Creatinine Glucose POC Glucose 155 H Lactic Acid Phosphorus Magnesium Ferritin Lactate Dehydrogenase C-Reactive Protein NT-Pro-B Natriuret Pep Total Protein Albumin Triglycerides Arterial Blood Glucose Ur Specific [place] Coronavirus (PCR) 03/10/21 03/10/21 03/11/21 18:10 18:55 00:07 WBC RBC Hgb Hct MCV MCHC RDW Plt Count Lymph % (Auto) [place] % (Auto) [place] # (Auto) Seg Neutrophils % Seg Neuts % (Manual) Lymphocytes % (Manual) Monocytes % (Manual) Nucleated RBC % Seg Neutrophils # Seg Neutrophils # Man Lymphocytes # (Manual) Monocytes # (Manual) PT INR D-Dimer ABG pH 7.343 L POC ABG pCO2 POC ABG pO2 ABG pO2 60.4 L ABG HCO3 27.9 H ABG O2 Saturation 88.7 L ABG Base Excess ABG Hemoglobin ABG Oxyhemoglobin ABG Sodium ABG Potassium ABG Glucose Oxyhemoglobin 86.9 L Sodium Potassium Chloride Carbon Dioxide BUN Creatinine Glucose POC Glucose 187 H 139 H Lactic Acid Phosphorus Magnesium Ferritin Lactate Dehydrogenase C-Reactive Protein NT-Pro-B Natriuret Pep Total Protein Albumin Triglycerides Arterial Blood Glucose Ur Specific [place] Coronavirus (PCR) 03/11/21 03/11/21 03/11/21 02:09 04:28 08:06 WBC RBC Hgb Hct MCV MCHC RDW Plt Count Lymph % (Auto) [place] % (Auto) [place] # (Auto) Seg Neutrophils % Seg Neuts % (Manual) Lymphocytes % (Manual) Monocytes % (Manual) Nucleated RBC % Seg Neutrophils # Seg Neutrophils # Man Lymphocytes # (Manual) Monocytes # (Manual) PT INR D-Dimer ABG pH 7.277 L POC ABG pCO2 55.9 H POC ABG pO2 54.4 L ABG pO2 ABG HCO3 ABG O2 Saturation ABG Base Excess ABG Hemoglobin ABG Oxyhemoglobin 83.0 L ABG Sodium ABG Potassium 4.8 H ABG Glucose 180 H Oxyhemoglobin Sodium Potassium Chloride Carbon Dioxide BUN 38 H Creatinine Glucose 249 H POC Glucose 278 H Lactic Acid Phosphorus Magnesium Ferritin Lactate Dehydrogenase C-Reactive Protein NT-Pro-B Natriuret Pep Total Protein Albumin 3.2 L Triglycerides Arterial Blood Glucose 180 H Ur Specific [place] Coronavirus (PCR) 03/11/21 03/11/21 03/11/21 11:29 15:06 15:48 WBC RBC Hgb Hct MCV MCHC RDW Plt Count Lymph % (Auto) [place] % (Auto) [place] # (Auto) Seg Neutrophils % Seg Neuts % (Manual) Lymphocytes % (Manual) Monocytes % (Manual) Nucleated RBC % Seg Neutrophils # Seg Neutrophils # Man Lymphocytes # (Manual) Monocytes # (Manual) PT INR D-Dimer ABG pH 7.260 L POC ABG pCO2 POC ABG pO2 ABG pO2 53.5 L ABG HCO3 29.5 H ABG O2 Saturation 84.0 L ABG Base Excess ABG Hemoglobin ABG Oxyhemoglobin ABG Sodium ABG Potassium ABG Glucose Oxyhemoglobin 82.3 L Sodium Potassium Chloride Carbon Dioxide BUN Creatinine Glucose POC Glucose 288 H 295 H Lactic Acid Phosphorus Magnesium Ferritin Lactate Dehydrogenase C-Reactive Protein NT-Pro-B Natriuret Pep Total Protein Albumin Triglycerides Arterial Blood Glucose Ur Specific [place] Coronavirus (PCR) 03/12/21 03/12/21 03/12/21 00:01 05:24 08:03 WBC RBC Hgb Hct MCV MCHC RDW Plt Count Lymph % (Auto) [place] % (Auto) [place] # (Auto) Seg Neutrophils % Seg Neuts % (Manual) Lymphocytes % (Manual) Monocytes % (Manual) Nucleated RBC % Seg Neutrophils # Seg Neutrophils # Man Lymphocytes # (Manual) Monocytes # (Manual) PT INR D-Dimer ABG pH POC ABG pCO2 POC ABG pO2 ABG pO2 ABG HCO3 ABG O2 Saturation ABG Base Excess ABG Hemoglobin ABG Oxyhemoglobin ABG Sodium ABG Potassium ABG Glucose Oxyhemoglobin Sodium 135 L Potassium Chloride Carbon Dioxide BUN 48 H Creatinine Glucose 358 H POC Glucose 304 H 310 H Lactic Acid Phosphorus Magnesium Ferritin Lactate Dehydrogenase C-Reactive Protein NT-Pro-B Natriuret Pep Total Protein 6.0 L Albumin 2.9 L Triglycerides Arterial Blood Glucose Ur Specific [place] Coronavirus (PCR) 03/12/21 03/12/21 03/12/21 08:03 10:43 11:31 WBC 14.6 H RBC Hgb Hct MCV MCHC RDW Plt Count Lymph % (Auto) [place] % (Auto) [place] # (Auto) Seg Neutrophils % Seg Neuts % (Manual) Lymphocytes % (Manual) Monocytes % (Manual) Nucleated RBC % Seg Neutrophils # Seg Neutrophils # Man Lymphocytes # (Manual) Monocytes # (Manual) PT INR D-Dimer ABG pH 7.248 L POC ABG pCO2 POC ABG pO2 ABG pO2 73.7 L ABG HCO3 32.0 H ABG O2 Saturation 93.9 L ABG Base Excess ABG Hemoglobin ABG Oxyhemoglobin ABG Sodium ABG Potassium ABG Glucose Oxyhemoglobin 92.1 L Sodium Potassium Chloride Carbon Dioxide BUN Creatinine Glucose POC Glucose 359 H Lactic Acid Phosphorus Magnesium Ferritin Lactate Dehydrogenase C-Reactive Protein NT-Pro-B Natriuret Pep Total Protein Albumin Triglycerides Arterial Blood Glucose Ur Specific [place] Coronavirus (PCR) 03/12/21 03/12/21 03/13/21 17:20 21:54 00:02 WBC RBC Hgb Hct MCV MCHC RDW Plt Count Lymph % (Auto) [place] % (Auto) [place] # (Auto) Seg Neutrophils % Seg Neuts % (Manual) Lymphocytes % (Manual) Monocytes % (Manual) Nucleated RBC % Seg Neutrophils # Seg Neutrophils # Man Lymphocytes # (Manual) Monocytes # (Manual) PT INR D-Dimer ABG pH 7.238 L POC ABG pCO2 71.9 H POC ABG pO2 53.6 L ABG pO2 ABG HCO3 ABG O2 Saturation ABG Base Excess ABG Hemoglobin ABG Oxyhemoglobin 84.8 L ABG Sodium 134.2 L ABG Potassium 4.9 H ABG Glucose 306 H Oxyhemoglobin Sodium Potassium Chloride Carbon Dioxide BUN Creatinine Glucose POC Glucose 374 H 308 H Lactic Acid Phosphorus Magnesium Ferritin Lactate Dehydrogenase C-Reactive Protein NT-Pro-B Natriuret Pep Total Protein Albumin Triglycerides Arterial Blood Glucose 306 H Ur Specific [place] Coronavirus (PCR) 03/13/21 03/13/21 03/13/21 05:22 05:44 05:44 WBC 13.9 H RBC Hgb Hct MCV MCHC RDW Plt Count Lymph % (Auto) [place] % (Auto) [place] # (Auto) Seg Neutrophils % Seg Neuts % (Manual) Lymphocytes % (Manual) Monocytes % (Manual) Nucleated RBC % Seg Neutrophils # Seg Neutrophils # Man Lymphocytes # (Manual) Monocytes # (Manual) PT INR D-Dimer 3567.97 H ABG pH POC ABG pCO2 POC ABG pO2 ABG pO2 ABG HCO3 ABG O2 Saturation ABG Base Excess ABG Hemoglobin ABG Oxyhemoglobin ABG Sodium ABG Potassium ABG Glucose Oxyhemoglobin Sodium Potassium Chloride Carbon Dioxide BUN Creatinine Glucose POC Glucose 316 H Lactic Acid Phosphorus Magnesium Ferritin Lactate Dehydrogenase C-Reactive Protein NT-Pro-B Natriuret Pep Total Protein Albumin Triglycerides Arterial Blood Glucose Ur Specific [place] Coronavirus (PCR) 03/13/21 03/13/21 03/13/21 05:44 05:44 11:15 WBC RBC Hgb Hct MCV MCHC RDW Plt Count Lymph % (Auto) [place] % (Auto) [place] # (Auto) Seg Neutrophils % Seg Neuts % (Manual) Lymphocytes % (Manual) Monocytes % (Manual) Nucleated RBC % Seg Neutrophils # Seg Neutrophils # Man Lymphocytes # (Manual) Monocytes # (Manual) PT INR D-Dimer ABG pH 7.310 L POC ABG pCO2 POC ABG pO2 ABG pO2 52.3 L ABG HCO3 34.1 H ABG O2 Saturation 86.8 L ABG Base Excess 5.5 H ABG Hemoglobin 13.8 L ABG Oxyhemoglobin ABG Sodium ABG Potassium ABG Glucose Oxyhemoglobin 85.1 L Sodium Potassium Chloride Carbon Dioxide BUN Creatinine Glucose POC Glucose Lactic Acid Phosphorus Magnesium Ferritin 858.7 H Lactate Dehydrogenase 348 H C-Reactive Protein 2.80 H NT-Pro-B Natriuret Pep Total Protein Albumin Triglycerides Arterial Blood Glucose Ur Specific [place] Coronavirus (PCR) 03/13/21 03/13/21 03/13/21 11:21 15:47 19:23 WBC RBC Hgb Hct MCV MCHC RDW Plt Count Lymph % (Auto) [place] % (Auto) [place] # (Auto) Seg Neutrophils % Seg Neuts % (Manual) Lymphocytes % (Manual) Monocytes % (Manual) Nucleated RBC % Seg Neutrophils # Seg Neutrophils # Man Lymphocytes # (Manual) Monocytes # (Manual) PT INR D-Dimer ABG pH POC ABG pCO2 POC ABG pO2 ABG pO2 ABG HCO3 ABG O2 Saturation ABG Base Excess ABG Hemoglobin ABG Oxyhemoglobin ABG Sodium ABG Potassium ABG Glucose Oxyhemoglobin Sodium 136 L Potassium 5.9 H Chloride Carbon Dioxide BUN 50 H Creatinine Glucose 397 H POC Glucose 322 H 317 H Lactic Acid Phosphorus Magnesium Ferritin Lactate Dehydrogenase C-Reactive Protein NT-Pro-B Natriuret Pep Total Protein Albumin Triglycerides Arterial Blood Glucose Ur Specific [place] Coronavirus (PCR) 03/13/21 03/14/21 03/14/21 23:46 05:32 05:50 WBC 11.6 H RBC Hgb Hct MCV MCHC RDW Plt Count Lymph % (Auto) [place] % (Auto) [place] # (Auto) Seg Neutrophils % Seg Neuts % (Manual) Lymphocytes % (Manual) Monocytes % (Manual) Nucleated RBC % Seg Neutrophils # Seg Neutrophils # Man Lymphocytes # (Manual) Monocytes # (Manual) PT INR D-Dimer ABG pH POC ABG pCO2 POC ABG pO2 ABG pO2 ABG HCO3 ABG O2 Saturation ABG Base Excess ABG Hemoglobin ABG Oxyhemoglobin ABG Sodium ABG Potassium ABG Glucose Oxyhemoglobin Sodium Potassium Chloride Carbon Dioxide BUN Creatinine Glucose POC Glucose 332 H 316 H Lactic Acid Phosphorus Magnesium Ferritin Lactate Dehydrogenase C-Reactive Protein NT-Pro-B Natriuret Pep Total Protein Albumin Triglycerides Arterial Blood Glucose Ur Specific [place] Coronavirus (PCR) 03/14/21 03/14/21 03/14/21 05:50 11:33 16:53 WBC RBC Hgb Hct MCV MCHC RDW Plt Count Lymph % (Auto) [place] % (Auto) [place] # (Auto) Seg Neutrophils % Seg Neuts % (Manual) Lymphocytes % (Manual) Monocytes % (Manual) Nucleated RBC % Seg Neutrophils # Seg Neutrophils # Man Lymphocytes # (Manual) Monocytes # (Manual) PT INR D-Dimer ABG pH POC ABG pCO2 POC ABG pO2 ABG pO2 ABG HCO3 ABG O2 Saturation ABG Base Excess ABG Hemoglobin ABG Oxyhemoglobin ABG Sodium ABG Potassium ABG Glucose Oxyhemoglobin Sodium Potassium 5.9 H Chloride Carbon Dioxide 31 H BUN 48 H Creatinine Glucose 380 H POC Glucose 315 H 235 H Lactic Acid Phosphorus Magnesium 3.40 H Ferritin Lactate Dehydrogenase C-Reactive Protein NT-Pro-B Natriuret Pep Total Protein Albumin Triglycerides Arterial Blood Glucose Ur Specific [place] Coronavirus (PCR) 03/14/21 03/14/21 03/15/21 18:34 23:27 01:22 WBC RBC Hgb Hct 46.3 H MCV MCHC RDW Plt Count Lymph % (Auto) [place] % (Auto) [place] # (Auto) Seg Neutrophils % Seg Neuts % (Manual) Lymphocytes % (Manual) Monocytes % (Manual) Nucleated RBC % Seg Neutrophils # Seg Neutrophils # Man Lymphocytes # (Manual) Monocytes # (Manual) PT INR D-Dimer ABG pH POC ABG pCO2 POC ABG pO2 ABG pO2 ABG HCO3 ABG O2 Saturation ABG Base Excess ABG Hemoglobin ABG Oxyhemoglobin ABG Sodium ABG Potassium ABG Glucose Oxyhemoglobin Sodium 146 H Potassium Chloride Carbon Dioxide 34 H BUN 49 H Creatinine Glucose 285 H POC Glucose 203 H Lactic Acid Phosphorus Magnesium Ferritin Lactate Dehydrogenase C-Reactive Protein NT-Pro-B Natriuret Pep Total Protein Albumin Triglycerides Arterial Blood Glucose Ur Specific [place] Coronavirus (PCR) 03/15/21 03/15/21 03/15/21 04:00 06:06 06:06 WBC RBC Hgb Hct MCV MCHC RDW Plt Count Lymph % (Auto) [place] % (Auto) [place] # (Auto) Seg Neutrophils % Seg Neuts % (Manual) Lymphocytes % (Manual) Monocytes % (Manual) Nucleated RBC % Seg Neutrophils # Seg Neutrophils # Man Lymphocytes # (Manual) Monocytes # (Manual) PT INR D-Dimer 1781.79 H ABG pH POC ABG pCO2 POC ABG pO2 ABG pO2 ABG HCO3 ABG O2 Saturation ABG Base Excess ABG Hemoglobin ABG Oxyhemoglobin ABG Sodium ABG Potassium ABG Glucose Oxyhemoglobin Sodium 148 H Potassium 5.7 H D Chloride 108.0 H Carbon Dioxide 31 H BUN 46 H Creatinine Glucose 139 H POC Glucose Lactic Acid Phosphorus 4.80 H D Magnesium 3.00 H Ferritin 976.4 H Lactate Dehydrogenase 630 H C-Reactive Protein NT-Pro-B Natriuret Pep Total Protein Albumin Triglycerides Arterial Blood Glucose Ur Specific [place] Coronavirus (PCR) 03/15/21 03/15/21 03/15/21 11:56 14:05 17:09 WBC RBC Hgb Hct MCV MCHC RDW Plt Count Lymph % (Auto) [place] % (Auto) [place] # (Auto) Seg Neutrophils % Seg Neuts % (Manual) Lymphocytes % (Manual) Monocytes % (Manual) Nucleated RBC % Seg Neutrophils # Seg Neutrophils # Man Lymphocytes # (Manual) Monocytes # (Manual) PT INR D-Dimer ABG pH POC ABG pCO2 POC ABG pO2 ABG pO2 52.1 L ABG HCO3 36.6 H ABG O2 Saturation 87.6 L ABG Base Excess 9.5 H ABG Hemoglobin ABG Oxyhemoglobin ABG Sodium ABG Potassium ABG Glucose Oxyhemoglobin 85.7 L Sodium Potassium Chloride Carbon Dioxide BUN Creatinine Glucose POC Glucose 219 H 263 H Lactic Acid Phosphorus Magnesium Ferritin Lactate Dehydrogenase C-Reactive Protein NT-Pro-B Natriuret Pep Total Protein Albumin Triglycerides Arterial Blood Glucose Ur Specific [place] Coronavirus (PCR) 03/16/21 03/16/21 03/16/21 00:32 04:11 04:11 WBC 11.9 H RBC Hgb Hct MCV MCHC 30 L RDW Plt Count Lymph % (Auto) [place] % (Auto) [place] # (Auto) Seg Neutrophils % Seg Neuts % (Manual) Lymphocytes % (Manual) Monocytes % (Manual) Nucleated RBC % Seg Neutrophils # Seg Neutrophils # Man Lymphocytes # (Manual) Monocytes # (Manual) PT INR D-Dimer ABG pH POC ABG pCO2 POC ABG pO2 ABG pO2 ABG HCO3 ABG O2 Saturation ABG Base Excess ABG Hemoglobin ABG Oxyhemoglobin ABG Sodium ABG Potassium ABG Glucose Oxyhemoglobin Sodium 151 H Potassium Chloride Carbon Dioxide 35 H BUN 48 H Creatinine Glucose 152 H POC Glucose 165 H Lactic Acid Phosphorus Magnesium Ferritin Lactate Dehydrogenase C-Reactive Protein NT-Pro-B Natriuret Pep Total Protein Albumin Triglycerides Arterial Blood Glucose Ur Specific [place] Coronavirus (PCR) 03/16/21 03/16/21 03/16/21 04:11 05:26 11:35 WBC RBC Hgb Hct MCV MCHC RDW Plt Count Lymph % (Auto) [place] % (Auto) [place] # (Auto) Seg Neutrophils % Seg Neuts % (Manual) Lymphocytes % (Manual) Monocytes % (Manual) Nucleated RBC % Seg Neutrophils # Seg Neutrophils # Man Lymphocytes # (Manual) Monocytes # (Manual) PT INR D-Dimer ABG pH POC ABG pCO2 POC ABG pO2 ABG pO2 ABG HCO3 ABG O2 Saturation ABG Base Excess ABG Hemoglobin ABG Oxyhemoglobin ABG Sodium ABG Potassium ABG Glucose Oxyhemoglobin Sodium Potassium Chloride Carbon Dioxide BUN Creatinine Glucose POC Glucose 162 H 187 H Lactic Acid Phosphorus Magnesium Ferritin Lactate Dehydrogenase C-Reactive Protein NT-Pro-B Natriuret Pep Total Protein Albumin Triglycerides 267 H Arterial Blood Glucose Ur Specific [place] Coronavirus (PCR) 03/16/21 03/16/21 03/16/21 17:29 22:25 23:22 WBC RBC Hgb Hct MCV MCHC RDW Plt Count Lymph % (Auto) [place] % (Auto) [place] # (Auto) Seg Neutrophils % Seg Neuts % (Manual) Lymphocytes % (Manual) Monocytes % (Manual) Nucleated RBC % Seg Neutrophils # Seg Neutrophils # Man Lymphocytes # (Manual) Monocytes # (Manual) PT INR D-Dimer ABG pH POC ABG pCO2 POC ABG pO2 ABG pO2 ABG HCO3 ABG O2 Saturation ABG Base Excess ABG Hemoglobin ABG Oxyhemoglobin ABG Sodium ABG Potassium ABG Glucose Oxyhemoglobin Sodium Potassium Chloride Carbon Dioxide BUN Creatinine Glucose POC Glucose 237 H 165 H 189 H Lactic Acid Phosphorus Magnesium Ferritin Lactate Dehydrogenase C-Reactive Protein NT-Pro-B Natriuret Pep Total Protein Albumin Triglycerides Arterial Blood Glucose Ur Specific [place] Coronavirus (PCR) 03/17/21 03/17/21 03/17/21 04:40 04:40 04:40 WBC 14.1 H RBC Hgb Hct MCV MCHC RDW 15.3 H Plt Count Lymph % (Auto) 12.6 L [place] % (Auto) 11.3 H [place] # (Auto) 1.6 H Seg Neutrophils % 74.9 H Seg Neuts % (Manual) Lymphocytes % (Manual) Monocytes % (Manual) Nucleated RBC % Seg Neutrophils # 10.5 H Seg Neutrophils # Man Lymphocytes # (Manual) Monocytes # (Manual) PT INR D-Dimer 1359.12 H ABG pH POC ABG pCO2 POC ABG pO2 ABG pO2 ABG HCO3 ABG O2 Saturation ABG Base Excess ABG Hemoglobin ABG Oxyhemoglobin ABG Sodium ABG Potassium ABG Glucose Oxyhemoglobin Sodium 148 H Potassium Chloride 107.5 H Carbon Dioxide 33 H BUN 42 H Creatinine Glucose 183 H POC Glucose Lactic Acid Phosphorus Magnesium 2.70 H Ferritin Lactate Dehydrogenase C-Reactive Protein NT-Pro-B Natriuret Pep Total Protein Albumin Triglycerides Arterial Blood Glucose Ur Specific [place] Coronavirus (PCR) 03/17/21 03/17/21 03/17/21 05:53 11:05 11:51 WBC RBC Hgb Hct MCV MCHC RDW Plt Count Lymph % (Auto) [place] % (Auto) [place] # (Auto) Seg Neutrophils % Seg Neuts % (Manual) Lymphocytes % (Manual) Monocytes % (Manual) Nucleated RBC % Seg Neutrophils # Seg Neutrophils # Man Lymphocytes # (Manual) Monocytes # (Manual) PT INR D-Dimer ABG pH POC ABG pCO2 POC ABG pO2 ABG pO2 ABG HCO3 35.7 H ABG O2 Saturation ABG Base Excess 8.7 H ABG Hemoglobin ABG Oxyhemoglobin ABG Sodium ABG Potassium ABG Glucose Oxyhemoglobin 94.2 L Sodium Potassium Chloride Carbon Dioxide BUN Creatinine Glucose POC Glucose 176 H 197 H Lactic Acid Phosphorus Magnesium Ferritin Lactate Dehydrogenase C-Reactive Protein NT-Pro-B Natriuret Pep Total Protein Albumin Triglycerides Arterial Blood Glucose Ur Specific [place] Coronavirus (PCR) 03/17/21 03/17/21 03/17/21 16:54 21:10 23:33 WBC RBC Hgb Hct MCV MCHC RDW Plt Count Lymph % (Auto) [place] % (Auto) [place] # (Auto) Seg Neutrophils % Seg Neuts % (Manual) Lymphocytes % (Manual) Monocytes % (Manual) Nucleated RBC % Seg Neutrophils # Seg Neutrophils # Man Lymphocytes # (Manual) Monocytes # (Manual) PT INR D-Dimer ABG pH POC ABG pCO2 POC ABG pO2 ABG pO2 ABG HCO3 ABG O2 Saturation ABG Base Excess ABG Hemoglobin ABG Oxyhemoglobin ABG Sodium ABG Potassium ABG Glucose Oxyhemoglobin Sodium Potassium Chloride Carbon Dioxide BUN Creatinine Glucose POC Glucose 135 H 160 H 138 H Lactic Acid Phosphorus Magnesium Ferritin Lactate Dehydrogenase C-Reactive Protein NT-Pro-B Natriuret Pep Total Protein Albumin Triglycerides Arterial Blood Glucose Ur Specific [place] Coronavirus (PCR) 03/18/21 03/18/21 03/18/21 04:18 04:50 05:43 WBC RBC Hgb Hct MCV MCHC RDW Plt Count Lymph % (Auto) [place] % (Auto) [place] # (Auto) Seg Neutrophils % Seg Neuts % (Manual) Lymphocytes % (Manual) Monocytes % (Manual) Nucleated RBC % Seg Neutrophils # Seg Neutrophils # Man Lymphocytes # (Manual) Monocytes # (Manual) PT INR D-Dimer ABG pH POC ABG pCO2 POC ABG pO2 ABG pO2 59.8 L ABG HCO3 36.5 H ABG O2 Saturation 90.7 L ABG Base Excess 9.4 H ABG Hemoglobin 12.0 L ABG Oxyhemoglobin ABG Sodium ABG Potassium ABG Glucose Oxyhemoglobin 88.9 L Sodium Potassium Chloride 107.2 H Carbon Dioxide 34 H BUN 38 H Creatinine 0.7 L Glucose 136 H POC Glucose 128 H Lactic Acid Phosphorus Magnesium Ferritin Lactate Dehydrogenase C-Reactive Protein NT-Pro-B Natriuret Pep Total Protein Albumin Triglycerides Arterial Blood Glucose Ur Specific [place] Coronavirus (PCR) 03/18/21 03/18/21 03/18/21 11:20 17:35 23:35 WBC RBC Hgb Hct MCV MCHC RDW Plt Count Lymph % (Auto) [place] % (Auto) [place] # (Auto) Seg Neutrophils % Seg Neuts % (Manual) Lymphocytes % (Manual) Monocytes % (Manual) Nucleated RBC % Seg Neutrophils # Seg Neutrophils # Man Lymphocytes # (Manual) Monocytes # (Manual) PT INR D-Dimer ABG pH POC ABG pCO2 POC ABG pO2 ABG pO2 70.7 L ABG HCO3 33.6 H ABG O2 Saturation ABG Base Excess 8.0 H ABG Hemoglobin ABG Oxyhemoglobin ABG Sodium ABG Potassium ABG Glucose Oxyhemoglobin 93.7 L Sodium Potassium Chloride Carbon Dioxide BUN Creatinine Glucose POC Glucose 189 H 144 H Lactic Acid Phosphorus Magnesium Ferritin Lactate Dehydrogenase C-Reactive Protein NT-Pro-B Natriuret Pep Total Protein Albumin Triglycerides Arterial Blood Glucose Ur Specific [place] Coronavirus (PCR) 03/19/21 03/19/21 03/19/21 02:35 04:20 04:20 WBC 14.0 H RBC Hgb Hct MCV MCHC RDW Plt Count Lymph % (Auto) [place] % (Auto) [place] # (Auto) Seg Neutrophils % Seg Neuts % (Manual) Lymphocytes % (Manual) Monocytes % (Manual) Nucleated RBC % Seg Neutrophils # Seg Neutrophils # Man Lymphocytes # (Manual) Monocytes # (Manual) PT INR D-Dimer ABG pH POC ABG pCO2 POC ABG pO2 ABG pO2 ABG HCO3 32.0 H ABG O2 Saturation ABG Base Excess 5.2 H ABG Hemoglobin 13.6 L ABG Oxyhemoglobin ABG Sodium ABG Potassium ABG Glucose Oxyhemoglobin 94.6 L Sodium 146 H Potassium Chloride 109.3 H Carbon Dioxide BUN 36 H Creatinine Glucose 203 H POC Glucose Lactic Acid Phosphorus Magnesium Ferritin Lactate Dehydrogenase C-Reactive Protein NT-Pro-B Natriuret Pep Total Protein Albumin Triglycerides 254 H Arterial Blood Glucose Ur Specific [place] Coronavirus (PCR) 03/19/21 03/19/21 03/19/21 05:45 11:36 23:51 WBC RBC Hgb Hct MCV MCHC RDW Plt Count Lymph % (Auto) [place] % (Auto) [place] # (Auto) Seg Neutrophils % Seg Neuts % (Manual) Lymphocytes % (Manual) Monocytes % (Manual) Nucleated RBC % Seg Neutrophils # Seg Neutrophils # Man Lymphocytes # (Manual) Monocytes # (Manual) PT INR D-Dimer ABG pH POC ABG pCO2 POC ABG pO2 ABG pO2 ABG HCO3 ABG O2 Saturation ABG Base Excess ABG Hemoglobin ABG Oxyhemoglobin ABG Sodium ABG Potassium ABG Glucose Oxyhemoglobin Sodium Potassium Chloride Carbon Dioxide BUN Creatinine Glucose POC Glucose 164 H 172 H 140 H Lactic Acid Phosphorus Magnesium Ferritin Lactate Dehydrogenase C-Reactive Protein NT-Pro-B Natriuret Pep Total Protein Albumin Triglycerides Arterial Blood Glucose Ur Specific [place] Coronavirus (PCR) 03/20/21 03/20/21 03/20/21 03:29 04:45 04:45 WBC RBC Hgb Hct MCV 95 H MCHC RDW 15.7 H Plt Count Lymph % (Auto) [place] % (Auto) [place] # (Auto) Seg Neutrophils % Seg Neuts % (Manual) Lymphocytes % (Manual) Monocytes % (Manual) Nucleated RBC % Seg Neutrophils # Seg Neutrophils # Man Lymphocytes # (Manual) Monocytes # (Manual) PT INR D-Dimer ABG pH 7.349 L POC ABG pCO2 POC ABG pO2 ABG pO2 ABG HCO3 33.7 H ABG O2 Saturation ABG Base Excess 6.4 H ABG Hemoglobin 11.8 L ABG Oxyhemoglobin ABG Sodium ABG Potassium ABG Glucose Oxyhemoglobin 93.9 L Sodium 146 H Potassium 5.5 H Chloride 111.1 H Carbon Dioxide BUN 34 H Creatinine 0.7 L Glucose 145 H POC Glucose Lactic Acid Phosphorus Magnesium 2.50 H Ferritin Lactate Dehydrogenase C-Reactive Protein NT-Pro-B Natriuret Pep Total Protein Albumin Triglycerides Arterial Blood Glucose Ur Specific [place] Coronavirus (PCR) 03/20/21 03/20/21 03/20/21 05:41 09:08 11:54 WBC RBC Hgb Hct MCV MCHC RDW Plt Count Lymph % (Auto) [place] % (Auto) [place] # (Auto) Seg Neutrophils % Seg Neuts % (Manual) Lymphocytes % (Manual) Monocytes % (Manual) Nucleated RBC % Seg Neutrophils # Seg Neutrophils # Man Lymphocytes # (Manual) Monocytes # (Manual) PT INR D-Dimer ABG pH POC ABG pCO2 POC ABG pO2 ABG pO2 ABG HCO3 ABG O2 Saturation ABG Base Excess ABG Hemoglobin ABG Oxyhemoglobin ABG Sodium ABG Potassium ABG Glucose Oxyhemoglobin Sodium Potassium Chloride Carbon Dioxide BUN Creatinine Glucose POC Glucose 108 H 132 H 162 H Lactic Acid Phosphorus Magnesium Ferritin Lactate Dehydrogenase C-Reactive Protein NT-Pro-B Natriuret Pep Total Protein Albumin Triglycerides Arterial Blood Glucose Ur Specific [place] Coronavirus (PCR) 03/20/21 03/21/21 03/21/21 17:28 00:31 04:44 WBC RBC Hgb Hct MCV MCHC RDW Plt Count Lymph % (Auto) [place] % (Auto) [place] # (Auto) Seg Neutrophils % Seg Neuts % (Manual) Lymphocytes % (Manual) Monocytes % (Manual) Nucleated RBC % Seg Neutrophils # Seg Neutrophils # Man Lymphocytes # (Manual) Monocytes # (Manual) PT INR D-Dimer ABG pH POC ABG pCO2 POC ABG pO2 ABG pO2 ABG HCO3 ABG O2 Saturation ABG Base Excess ABG Hemoglobin ABG Oxyhemoglobin ABG Sodium ABG Potassium ABG Glucose Oxyhemoglobin Sodium Potassium Chloride 108.3 H Carbon Dioxide BUN 30 H Creatinine 0.7 L Glucose POC Glucose 160 H 122 H Lactic Acid Phosphorus Magnesium Ferritin Lactate Dehydrogenase C-Reactive Protein NT-Pro-B Natriuret Pep Total Protein Albumin Triglycerides Arterial Blood Glucose Ur Specific [place] Coronavirus (PCR) 03/21/21 03/21/21 03/21/21 09:18 10:09 13:20 WBC RBC Hgb Hct MCV MCHC RDW Plt Count Lymph % (Auto) [place] % (Auto) [place] # (Auto) Seg Neutrophils % Seg Neuts % (Manual) Lymphocytes % (Manual) Monocytes % (Manual) Nucleated RBC % Seg Neutrophils # Seg Neutrophils # Man Lymphocytes # (Manual) Monocytes # (Manual) PT INR D-Dimer ABG pH POC ABG pCO2 POC ABG pO2 ABG pO2 60.7 L ABG HCO3 30.6 H ABG O2 Saturation 93.6 L ABG Base Excess 5.3 H ABG Hemoglobin ABG Oxyhemoglobin ABG Sodium ABG Potassium ABG Glucose Oxyhemoglobin 91.7 L Sodium Potassium Chloride Carbon Dioxide BUN Creatinine Glucose POC Glucose 169 H 122 H Lactic Acid Phosphorus Magnesium Ferritin Lactate Dehydrogenase C-Reactive Protein NT-Pro-B Natriuret Pep Total Protein Albumin Triglycerides Arterial Blood Glucose Ur Specific [place] Coronavirus (PCR) 03/21/21 03/21/21 03/21/21 17:25 22:41 23:52 WBC RBC Hgb Hct MCV MCHC RDW Plt Count Lymph % (Auto) [place] % (Auto) [place] # (Auto) Seg Neutrophils % Seg Neuts % (Manual) Lymphocytes % (Manual) Monocytes % (Manual) Nucleated RBC % Seg Neutrophils # Seg Neutrophils # Man Lymphocytes # (Manual) Monocytes # (Manual) PT INR D-Dimer ABG pH POC ABG pCO2 POC ABG pO2 ABG pO2 ABG HCO3 ABG O2 Saturation ABG Base Excess ABG Hemoglobin ABG Oxyhemoglobin ABG Sodium ABG Potassium ABG Glucose Oxyhemoglobin Sodium Potassium Chloride Carbon Dioxide BUN Creatinine Glucose POC Glucose 121 H 139 H 140 H Lactic Acid Phosphorus Magnesium Ferritin Lactate Dehydrogenase C-Reactive Protein NT-Pro-B Natriuret Pep Total Protein Albumin Triglycerides Arterial Blood Glucose Ur Specific [place] Coronavirus (PCR) 03/22/21 03/22/21 03/22/21 05:58 07:26 07:26 WBC RBC Hgb Hct MCV MCHC 31 L RDW 16.1 H Plt Count Lymph % (Auto) [place] % (Auto) [place] # (Auto) Seg Neutrophils % Seg Neuts % (Manual) Lymphocytes % (Manual) Monocytes % (Manual) Nucleated RBC % Seg Neutrophils # Seg Neutrophils # Man Lymphocytes # (Manual) Monocytes # (Manual) PT INR D-Dimer ABG pH POC ABG pCO2 POC ABG pO2 ABG pO2 ABG HCO3 ABG O2 Saturation ABG Base Excess ABG Hemoglobin ABG Oxyhemoglobin ABG Sodium ABG Potassium ABG Glucose Oxyhemoglobin Sodium Potassium Chloride 108.5 H Carbon Dioxide BUN 44 H Creatinine Glucose 120 H POC Glucose 131 H Lactic Acid Phosphorus 5.80 H Magnesium 2.80 H Ferritin Lactate Dehydrogenase C-Reactive Protein NT-Pro-B Natriuret Pep Total Protein Albumin Triglycerides 305 H Arterial Blood Glucose Ur Specific [place] Coronavirus (PCR) 03/22/21 03/22/21 03/22/21 09:38 11:15 16:01 WBC RBC Hgb Hct MCV MCHC RDW Plt Count Lymph % (Auto) [place] % (Auto) [place] # (Auto) Seg Neutrophils % Seg Neuts % (Manual) Lymphocytes % (Manual) Monocytes % (Manual) Nucleated RBC % Seg Neutrophils # Seg Neutrophils # Man Lymphocytes # (Manual) Monocytes # (Manual) PT INR D-Dimer ABG pH POC ABG pCO2 POC ABG pO2 ABG pO2 70.0 L ABG HCO3 30.0 H ABG O2 Saturation 94.6 L ABG Base Excess 3.6 H ABG Hemoglobin 13.5 L ABG Oxyhemoglobin ABG Sodium ABG Potassium ABG Glucose Oxyhemoglobin 92.5 L Sodium Potassium Chloride Carbon Dioxide BUN Creatinine Glucose POC Glucose 186 H 148 H Lactic Acid Phosphorus Magnesium Ferritin Lactate Dehydrogenase C-Reactive Protein NT-Pro-B Natriuret Pep Total Protein Albumin Triglycerides Arterial Blood Glucose Ur Specific [place] Coronavirus (PCR) 03/22/21 03/22/21 03/23/21 21:13 23:48 07:04 WBC 11.7 H RBC Hgb Hct MCV 95 H MCHC RDW 16.1 H Plt Count Lymph % (Auto) [place] % (Auto) [place] # (Auto) Seg Neutrophils % Seg Neuts % (Manual) Lymphocytes % (Manual) Monocytes % (Manual) Nucleated RBC % Seg Neutrophils # Seg Neutrophils # Man Lymphocytes # (Manual) Monocytes # (Manual) PT INR D-Dimer ABG pH POC ABG pCO2 POC ABG pO2 ABG pO2 ABG HCO3 ABG O2 Saturation ABG Base Excess ABG Hemoglobin ABG Oxyhemoglobin ABG Sodium ABG Potassium ABG Glucose Oxyhemoglobin Sodium Potassium Chloride Carbon Dioxide BUN Creatinine Glucose POC Glucose 121 H 114 H Lactic Acid Phosphorus Magnesium Ferritin Lactate Dehydrogenase C-Reactive Protein NT-Pro-B Natriuret Pep Total Protein Albumin Triglycerides Arterial Blood Glucose Ur Specific [place] Coronavirus (PCR) 03/23/21 03/23/21 03/23/21 07:04 08:35 11:19 WBC RBC Hgb Hct MCV MCHC RDW Plt Count Lymph % (Auto) [place] % (Auto) [place] # (Auto) Seg Neutrophils % Seg Neuts % (Manual) Lymphocytes % (Manual) Monocytes % (Manual) Nucleated RBC % Seg Neutrophils # Seg Neutrophils # Man Lymphocytes # (Manual) Monocytes # (Manual) PT INR D-Dimer ABG pH 7.345 L POC ABG pCO2 POC ABG pO2 ABG pO2 167.9 H ABG HCO3 32.2 H ABG O2 Saturation ABG Base Excess 4.8 H ABG Hemoglobin 13.4 L ABG Oxyhemoglobin ABG Sodium ABG Potassium ABG Glucose Oxyhemoglobin Sodium 148 H Potassium Chloride 111.3 H Carbon Dioxide 31 H BUN 31 H Creatinine Glucose 131 H POC Glucose 165 H Lactic Acid Phosphorus Magnesium 2.50 H Ferritin Lactate Dehydrogenase C-Reactive Protein NT-Pro-B Natriuret Pep Total Protein Albumin Triglycerides Arterial Blood Glucose Ur Specific [place] Coronavirus (PCR) 03/23/21 03/23/21 03/24/21 16:48 20:52 00:07 WBC RBC Hgb Hct MCV MCHC RDW Plt Count Lymph % (Auto) [place] % (Auto) [place] # (Auto) Seg Neutrophils % Seg Neuts % (Manual) Lymphocytes % (Manual) Monocytes % (Manual) Nucleated RBC % Seg Neutrophils # Seg Neutrophils # Man Lymphocytes # (Manual) Monocytes # (Manual) PT INR D-Dimer ABG pH POC ABG pCO2 POC ABG pO2 ABG pO2 ABG HCO3 ABG O2 Saturation ABG Base Excess ABG Hemoglobin ABG Oxyhemoglobin ABG Sodium ABG Potassium ABG Glucose Oxyhemoglobin Sodium Potassium Chloride Carbon Dioxide BUN Creatinine Glucose POC Glucose 160 H 127 H 147 H Lactic Acid Phosphorus Magnesium Ferritin Lactate Dehydrogenase C-Reactive Protein NT-Pro-B Natriuret Pep Total Protein Albumin Triglycerides Arterial Blood Glucose Ur Specific [place] Coronavirus (PCR) 03/24/21 03/24/21 03/24/21 04:34 04:34 05:20 WBC 13.3 H RBC Hgb Hct MCV MCHC 31 L RDW 16.1 H Plt Count Lymph % (Auto) [place] % (Auto) [place] # (Auto) Seg Neutrophils % Seg Neuts % (Manual) Lymphocytes % (Manual) Monocytes % (Manual) Nucleated RBC % Seg Neutrophils # Seg Neutrophils # Man Lymphocytes # (Manual) Monocytes # (Manual) PT INR D-Dimer ABG pH POC ABG pCO2 POC ABG pO2 ABG pO2 ABG HCO3 ABG O2 Saturation ABG Base Excess ABG Hemoglobin ABG Oxyhemoglobin ABG Sodium ABG Potassium ABG Glucose Oxyhemoglobin Sodium Potassium 5.2 H Chloride Carbon Dioxide BUN 28 H Creatinine 0.7 L Glucose 152 H POC Glucose 141 H Lactic Acid Phosphorus Magnesium Ferritin Lactate Dehydrogenase C-Reactive Protein NT-Pro-B Natriuret Pep Total Protein Albumin Triglycerides Arterial Blood Glucose Ur Specific [place] Coronavirus (PCR) 03/24/21 03/24/21 03/24/21 09:40 11:38 16:45 WBC RBC Hgb Hct MCV MCHC RDW Plt Count Lymph % (Auto) [place] % (Auto) [place] # (Auto) Seg Neutrophils % Seg Neuts % (Manual) Lymphocytes % (Manual) Monocytes % (Manual) Nucleated RBC % Seg Neutrophils # Seg Neutrophils # Man Lymphocytes # (Manual) Monocytes # (Manual) PT INR D-Dimer ABG pH POC ABG pCO2 POC ABG pO2 ABG pO2 ABG HCO3 ABG O2 Saturation ABG Base Excess ABG Hemoglobin ABG Oxyhemoglobin ABG Sodium ABG Potassium ABG Glucose Oxyhemoglobin Sodium Potassium Chloride Carbon Dioxide BUN Creatinine Glucose POC Glucose 126 H 136 H 118 H Lactic Acid Phosphorus Magnesium Ferritin Lactate Dehydrogenase C-Reactive Protein NT-Pro-B Natriuret Pep Total Protein Albumin Triglycerides Arterial Blood Glucose Ur Specific [place] Coronavirus (PCR) 03/24/21 03/24/21 03/25/21 21:03 23:49 04:32 WBC RBC Hgb Hct MCV MCHC RDW 16.1 H Plt Count 121 L Lymph % (Auto) [place] % (Auto) [place] # (Auto) Seg Neutrophils % Seg Neuts % (Manual) Lymphocytes % (Manual) Monocytes % (Manual) Nucleated RBC % Seg Neutrophils # Seg Neutrophils # Man Lymphocytes # (Manual) Monocytes # (Manual) PT INR D-Dimer ABG pH POC ABG pCO2 POC ABG pO2 ABG pO2 ABG HCO3 ABG O2 Saturation ABG Base Excess ABG Hemoglobin ABG Oxyhemoglobin ABG Sodium ABG Potassium ABG Glucose Oxyhemoglobin Sodium Potassium Chloride Carbon Dioxide BUN Creatinine Glucose POC Glucose 116 H 125 H Lactic Acid Phosphorus Magnesium Ferritin Lactate Dehydrogenase C-Reactive Protein NT-Pro-B Natriuret Pep Total Protein Albumin Triglycerides Arterial Blood Glucose Ur Specific [place] Coronavirus (PCR) 03/25/21 03/25/21 03/25/21 04:32 05:21 09:29 WBC RBC Hgb Hct MCV MCHC RDW Plt Count Lymph % (Auto) [place] % (Auto) [place] # (Auto) Seg Neutrophils % Seg Neuts % (Manual) Lymphocytes % (Manual) Monocytes % (Manual) Nucleated RBC % Seg Neutrophils # Seg Neutrophils # Man Lymphocytes # (Manual) Monocytes # (Manual) PT INR D-Dimer ABG pH POC ABG pCO2 POC ABG pO2 ABG pO2 ABG HCO3 ABG O2 Saturation ABG Base Excess ABG Hemoglobin ABG Oxyhemoglobin ABG Sodium ABG Potassium ABG Glucose Oxyhemoglobin Sodium 135 L D Potassium Chloride Carbon Dioxide BUN 25 H Creatinine 0.7 L Glucose 168 H POC Glucose 149 H 115 H Lactic Acid Phosphorus Magnesium Ferritin Lactate Dehydrogenase C-Reactive Protein NT-Pro-B Natriuret Pep Total Protein Albumin Triglycerides Arterial Blood Glucose Ur Specific [place] Coronavirus (PCR) 03/25/21 03/25/21 03/25/21 12:26 12:35 23:53 WBC RBC Hgb Hct MCV MCHC RDW Plt Count Lymph % (Auto) [place] % (Auto) [place] # (Auto) Seg Neutrophils % Seg Neuts % (Manual) Lymphocytes % (Manual) Monocytes % (Manual) Nucleated RBC % Seg Neutrophils # Seg Neutrophils # Man Lymphocytes # (Manual) Monocytes # (Manual) PT INR D-Dimer ABG pH POC ABG pCO2 POC ABG pO2 ABG pO2 100.5 H ABG HCO3 33.6 H ABG O2 Saturation ABG Base Excess 6.4 H ABG Hemoglobin 12.0 L ABG Oxyhemoglobin ABG Sodium ABG Potassium ABG Glucose Oxyhemoglobin Sodium Potassium Chloride Carbon Dioxide BUN Creatinine Glucose POC Glucose 108 H 137 H Lactic Acid Phosphorus Magnesium Ferritin Lactate Dehydrogenase C-Reactive Protein NT-Pro-B Natriuret Pep Total Protein Albumin Triglycerides Arterial Blood Glucose Ur Specific [place] Coronavirus (PCR) 03/26/21 03/26/21 03/26/21 05:14 07:09 07:09 WBC RBC Hgb Hct MCV MCHC RDW 16.5 H Plt Count 139 L Lymph % (Auto) [place] % (Auto) [place] # (Auto) Seg Neutrophils % Seg Neuts % (Manual) Lymphocytes % (Manual) Monocytes % (Manual) Nucleated RBC % Seg Neutrophils # Seg Neutrophils # Man Lymphocytes # (Manual) Monocytes # (Manual) PT INR D-Dimer ABG pH POC ABG pCO2 POC ABG pO2 ABG pO2 ABG HCO3 ABG O2 Saturation ABG Base Excess ABG Hemoglobin ABG Oxyhemoglobin ABG Sodium ABG Potassium ABG Glucose Oxyhemoglobin Sodium Potassium Chloride Carbon Dioxide BUN 22 H Creatinine 0.7 L Glucose 108 H POC Glucose 116 H Lactic Acid Phosphorus Magnesium Ferritin Lactate Dehydrogenase C-Reactive Protein NT-Pro-B Natriuret Pep Total Protein Albumin Triglycerides Arterial Blood Glucose Ur Specific [place] Coronavirus (PCR) 03/26/21 03/26/21 03/26/21 09:51 11:15 16:59 WBC RBC Hgb Hct MCV MCHC RDW Plt Count Lymph % (Auto) [place] % (Auto) [place] # (Auto) Seg Neutrophils % Seg Neuts % (Manual) Lymphocytes % (Manual) Monocytes % (Manual) Nucleated RBC % Seg Neutrophils # Seg Neutrophils # Man Lymphocytes # (Manual) Monocytes # (Manual) PT INR D-Dimer ABG pH POC ABG pCO2 POC ABG pO2 ABG pO2 ABG HCO3 ABG O2 Saturation ABG Base Excess ABG Hemoglobin ABG Oxyhemoglobin ABG Sodium ABG Potassium ABG Glucose Oxyhemoglobin Sodium Potassium Chloride Carbon Dioxide BUN Creatinine Glucose POC Glucose 107 H 119 H 174 H Lactic Acid Phosphorus Magnesium Ferritin Lactate Dehydrogenase C-Reactive Protein NT-Pro-B Natriuret Pep Total Protein Albumin Triglycerides Arterial Blood Glucose Ur Specific [place] Coronavirus (PCR) 03/26/21 03/27/21 03/27/21 22:18 07:08 10:28 WBC RBC Hgb Hct MCV 95 H MCHC RDW 16.2 H Plt Count 134 L Lymph % (Auto) [place] % (Auto) [place] # (Auto) Seg Neutrophils % Seg Neuts % (Manual) Lymphocytes % (Manual) Monocytes % (Manual) Nucleated RBC % Seg Neutrophils # Seg Neutrophils # Man Lymphocytes # (Manual) Monocytes # (Manual) PT INR D-Dimer ABG pH POC ABG pCO2 POC ABG pO2 ABG pO2 ABG HCO3 ABG O2 Saturation ABG Base Excess ABG Hemoglobin ABG Oxyhemoglobin ABG Sodium ABG Potassium ABG Glucose Oxyhemoglobin Sodium Potassium Chloride Carbon Dioxide BUN Creatinine Glucose POC Glucose 107 H 52 L Lactic Acid Phosphorus Magnesium Ferritin Lactate Dehydrogenase C-Reactive Protein NT-Pro-B Natriuret Pep Total Protein Albumin Triglycerides Arterial Blood Glucose Ur Specific [place] Coronavirus (PCR) 03/27/21 03/27/21 03/27/21 10:28 11:45 17:39 WBC RBC Hgb Hct MCV MCHC RDW Plt Count Lymph % (Auto) [place] % (Auto) [place] # (Auto) Seg Neutrophils % Seg Neuts % (Manual) Lymphocytes % (Manual) Monocytes % (Manual) Nucleated RBC % Seg Neutrophils # Seg Neutrophils # Man Lymphocytes # (Manual) Monocytes # (Manual) PT INR D-Dimer ABG pH POC ABG pCO2 POC ABG pO2 ABG pO2 ABG HCO3 ABG O2 Saturation ABG Base Excess ABG Hemoglobin ABG Oxyhemoglobin ABG Sodium ABG Potassium ABG Glucose Oxyhemoglobin Sodium 136 L Potassium Chloride Carbon Dioxide BUN Creatinine 0.7 L Glucose 150 H POC Glucose 121 H 165 H Lactic Acid Phosphorus Magnesium Ferritin Lactate Dehydrogenase C-Reactive Protein NT-Pro-B Natriuret Pep Total Protein Albumin Triglycerides Arterial Blood Glucose Ur Specific [place] Coronavirus (PCR) 03/28/21 07:14 WBC RBC Hgb Hct MCV MCHC RDW 16.4 H Plt Count Lymph % (Auto) [place] % (Auto) [place] # (Auto) Seg Neutrophils % Seg Neuts % (Manual) Lymphocytes % (Manual) Monocytes % (Manual) Nucleated RBC % Seg Neutrophils # Seg Neutrophils # Man Lymphocytes # (Manual) Monocytes # (Manual) PT INR D-Dimer ABG pH POC ABG pCO2 POC ABG pO2 ABG pO2 ABG HCO3 ABG O2 Saturation ABG Base Excess ABG Hemoglobin ABG Oxyhemoglobin ABG Sodium ABG Potassium ABG Glucose Oxyhemoglobin Sodium Potassium Chloride Carbon Dioxide BUN Creatinine Glucose POC Glucose Lactic Acid Phosphorus Magnesium Ferritin Lactate Dehydrogenase C-Reactive Protein NT-Pro-B Natriuret Pep Total Protein Albumin Triglycerides Arterial Blood Glucose Ur Specific [place] Coronavirus (PCR) Allied health notes reviewed: nursing
--- NOTE | 2021-03-28 14:22 | Progress Note ---
Assessment and Plan Cultures: SARS CoV2 PCR: positive 03/08/2021 blood culture: no growth 03/10/2021 sputum culture: Usual respiratory marlyn 03/16/2021 blood culture: In process 03/18/2021 sputum culture: Stenotrophomonas A/P: 61-year-old male with diabetes, hypertension admitted to the hospital with complaints of shortness of breath and feeling weak for the last 1 week: #Sepsis secondary to bilateral pneumonia: secondary to COVID-19. Elevated inflammatory markers. WBC 22.6, creatinine 1.3, ferritin 877, CRP 18.0, LDH 624, procalcitonin 0.18. D-dimer >10k. CTA negative for pulmonary embolism, severe patchy groundglass opacities. #New fever: probably COVID related. #Acute hypoxic respiratory failure: initially required BiPAP, now intubated, on the vent. #DM #HTN Recs: -Completed Bactrim for Stenotrophomonas -completed IV remdesivir -s/p Actemra 03/10/2021 -prophylactic anticoagulation based on d-dimer per hospital protocol -Pending trach/PEG G. Joslyn Goins MD [facility] O: [phone] F: [phone] Subjective Date of service: 03/28/21 Principal diagnosis: COVID-19 infection; DM II; Bilateral pneumonia; Obesity; HTN Interval history: Afebrile, normal white count. Remains on the vent. Objective - Exam Narrative Exam: Physical exam deferred to reduce risk of transmission of COVID-19. Please refer to primary team's note. - Constitutional Vitals: Vital Signs Temp Pulse Resp BP Pulse Ox 99.8 F H 103 H 22 141/72 96 03/28/21 12:00 03/28/21 12:16 03/28/21 12:16 03/28/21 12:16 03/28/21 12:16 Temperature -Last 24 Hours Temperature 99.8 F Temperature 99 F Temperature 100.1 F Temperature 98.8 F Temperature 99.8 F Temperature 98.8 F - Labs CBC & Chem 7: 03/28/21 07:14 03/28/21 07:14 Labs: Abnormal lab results 03/27/21 03/28/21 03/28/21 Range/Units 17:39 07:14 11:42 RDW 16.4 H (13.2-15.2) % POC Glucose 165 H 145 H (70-105) mg/dL
[2021-03-28] MEDS ORDERED: D5W/0.9% NACL 1,000 ML IV SCH (23:45)
[2021-03-29] MEDS: PE/MO/PET,WH 10 APPLIC/28 GM TUBE PR PRN (03:59)
[2021-03-29] MEDS: hydrALAZINE 25 MG TAB PO SCH ×3 (05:04→21:43)
[2021-03-29] MEDS: chlordiazePOXIDE 25 MG CAP PO SCH ×4 (05:05→23:57)
[2021-03-29 05:51] LABS: Hematocrit 34.9 % (35.5-45.6); Mean Corpuscular HGB Conc 32 % (32-34); Mean Corpuscular Volume 94 fl (84-94); Platelet Count 153 K/mm3 (140-440); Red Blood Count 3.73 M/mm3 (3.65-5.03); Red Cell Distribution Width 15.9 % (13.2-15.2)
[2021-03-29 05:59] LABS: INR 0.88 (0.87-1.13)
[2021-03-29 06:00] LABS: Blood Urea Nitrogen 15 mg/dL (9-20); Calcium 8.4 mg/dL (8.4-10.2); Hemolysis Index 3
[2021-03-29 06:02] LABS: BUN/Creatinine Ratio 25
[2021-03-29] MEDS: INSULIN LISPRO 100 UNIT/ML SUB-Q SCH ×3 (06:16→18:55)
[2021-03-29] MEDS: fentaNYL DRIP Premix 2,000 MCG/100 ML BAG IV SCH ×3 (06:57→23:25)
[2021-03-29] MEDS: ARFORMOTEROL 15 MCG/2 ML NEBU IH SCH ×2 (07:53→20:36)
[2021-03-29] MEDS: BUDESONIDE 0.25 MG/2 ML NEBU IH SCH ×2 (07:54→20:36)
[2021-03-29] MEDS ORDERED: ENOXAPARIN 30 MG/0.3 ML INJ SUB-Q SCH (10:00)
[2021-03-29] MEDS: DOXAZOSIN 1 MG TAB PO SCH (10:42)
[2021-03-29] MEDS: METOPROLOL TARTRATE 25 MG TAB PO SCH ×2 (10:42→21:45)
[2021-03-29] MEDS: FAMOTIDINE 20 MG TAB FEEDTUBE SCH ×2 (10:43→21:46)
[2021-03-29] MEDS: predniSONE 10 MG TAB PO SCH (10:44)
[2021-03-29] MEDS: SENNOSIDES/DOCUSATE SODIUM 8.6/50 MG TAB FEEDTUBE SCH ×2 (10:44→21:46)
[2021-03-29] MEDS: QUEtiapine 100 MG TAB PO SCH ×2 (10:45→21:46)
[2021-03-29] MEDS: ZINC SULFATE 220 MG CAP PO SCH ×2 (10:46→21:47)
[2021-03-29] MEDS: ASCORBIC ACID 500 MG TAB PO SCH ×2 (10:46→21:46)
--- NOTE | 2021-03-29 11:06 | Progress Note ---
Assessment and Plan Acute hypoxemic respiratory failure, on continuous noninvasive ventilation COVID-19 infection Bilateral pneumonia History of diabetes Obesity Hypertension Leukocytosis Possible venous thromboembolic phenomena with significantly elevated D-dimers DM II Elevated serum inflammatory markers to include CRP levels, ferritin and LDH - ETT day # 20; for tracheostomy today - CXR in am - continue Daily SAT and SBT assessment as tolerated - continue care as below otherwise; - continue to wean supplemental oxygen for target O2 sat's > 90% acutely - VAP bundle addressed - continue lung protective strategies - continue bronchodilators with pulmonary hygiene per RT - wean per pulmonary driven protocols otherwise - continue accuchecks with glycemic control per SSI (While critically ill target blood glucose of 140-180 mg/dL; avoid hypoglycemia) - sedation prn for target RASS 0 to -1 - avoid nephrotoxins, renally dose all medications - avoid benzodiazepine's, reduce the possibility of delirium - AB's per ID rec's - prn analgesia per pain score - Maintenance of sleep-wake cycle, avoid delirium - G.I. & VTE prophylaxis - PT/OT/ROM exercises - mobility protocols for pressure ulcer prophylaxis - Monitor hemodynamics closely - continue other care per attending / other consultants - discharge planning ongoing concurrently COVID SPECIFIC INTERVENTIONS - Remdesivir as per ID/Pulmonary developed protocols (received) - continue systemic steroids for severe COVID-19 infection empirically (Decadron) - follow repeat COVID tests results - zinc and vitamin C supplementation - Monitor inflammatory markers per facility protocol - ferritin, Ddimer, CRP - therapeutic anticoagulation per system Protocol based on d-dimer and clinical considerations (treatment dose) - Continue contact and airborne isolation .... Re-evaluate in am & prn CONDITION: CRITICAL PROGNOSIS: GUARDED CODE STATUS: FULL CODE The high probability of a clinically significant, sudden or life-threatening deterioration of the [respiratory, cardiovascular & hematologic] system(s) required my full and direct attention, intervention and personal management. The aggregate critical care time was [34] minutes without overlap. Time includes spent on; [x] Data Review and interpretation [x] Patient assessment and monitoring of vital signs [x] Documentation [x] Medication orders and management Subjective Date of service: 03/29/21 Principal diagnosis: COVID-19 infection; DM II; Bilateral pneumonia; Obesity; HTN Interval history: Patient is seen today for: Acute hypoxemic respiratory failure; COVID-19 i nfection; DM II; Bilateral pneumonia; Obesity; HTN Seen and examined at bedside; 24hour events reviewed; nursing and respiratory care staff consulted; no adverse overnight events reported to me; resting in bed; remains on MVS; awaiting OR transfer for trach & PEG; no weaning today Objective Vital Signs - 12hr 03/28/21 03/28/21 03/28/21 23:16 23:22 23:30 Temperature Pulse Rate 93 H 93 H Respiratory 15 14 Rate Blood Pressure 128/66 128/66 117/60 O2 Sat by Pulse 98 99 98 Oximetry 03/28/21 03/29/21 03/29/21 23:46 00:00 00:16 Temperature 98.8 F Pulse Rate 95 H 94 H 93 H Respiratory 16 13 14 Rate Blood Pressure 117/60 123/58 123/58 O2 Sat by Pulse 98 99 99 Oximetry 03/29/21 03/29/21 03/29/21 00:18 00:30 00:46 Temperature Pulse Rate 92 H 93 H 94 H Respiratory 12 13 Rate Blood Pressure 123/58 122/76 122/76 O2 Sat by Pulse 99 98 99 Oximetry 03/29/21 03/29/21 03/29/21 01:00 01:16 01:30 Temperature Pulse Rate 94 H 95 H 95 H Respiratory 14 19 14 Rate Blood Pressure 122/76 139/71 139/71 O2 Sat by Pulse 99 100 99 Oximetry 03/29/21 03/29/21 03/29/21 01:46 01:48 02:00 Temperature Pulse Rate 97 H 97 H 96 H Respiratory 16 17 Rate Blood Pressure 150/79 170/87 O2 Sat by Pulse 97 96 Oximetry 03/29/21 03/29/21 03/29/21 02:16 02:30 02:46 Temperature Pulse Rate 97 H 97 H 97 H Respiratory 20 13 16 Rate Blood Pressure 170/87 174/93 174/93 O2 Sat by Pulse 98 97 96 Oximetry 03/29/21 03/29/21 03/29/21 03:00 03:16 03:30 Temperature Pulse Rate 97 H 98 H 99 H Respiratory 16 16 15 Rate Blood Pressure 174/91 174/91 174/87 O2 Sat by Pulse 96 97 97 Oximetry 03/29/21 03/29/21 03/29/21 03:46 04:00 04:02 Temperature Pulse Rate 100 H 104 H 103 H Respiratory 15 21 Rate Blood Pressure 174/87 174/87 O2 Sat by Pulse 97 99 Oximetry 03/29/21 03/29/21 03/29/21 04:16 04:30 04:46 Temperature Pulse Rate 100 H 98 H 98 H Respiratory 17 16 15 Rate Blood Pressure 201/109 201/109 178/99 O2 Sat by Pulse 96 95 98 Oximetry 03/29/21 03/29/21 03/29/21 04:55 05:00 05:16 Temperature Pulse Rate 97 H 98 H 98 H Respiratory 16 16 Rate Blood Pressure 178/99 178/99 134/76 O2 Sat by Pulse 98 95 97 Oximetry 03/29/21 03/29/21 03/29/21 05:30 05:46 06:00 Temperature Pulse Rate 99 H 99 H 98 H Respiratory 16 18 16 Rate Blood Pressure 141/74 141/74 139/80 O2 Sat by Pulse 97 96 96 Oximetry 03/29/21 03/29/21 03/29/21 06:16 07:16 07:17 Temperature 99.8 F H Pulse Rate 99 H 101 H Respiratory 16 Rate Blood Pressure 139/80 158/86 O2 Sat by Pulse 97 96 Oximetry Constitutional: no acute distress (sedated), other (elderly obese male with mildly increased respiratory effort at rest on MVS) Eyes: non-icteric ENT: oropharynx moist, other (ETT 24 cm CHAITANYA) Neck: supple, no lymphadenopathy, no JVD, other (large circumference) Effort: normal Ascultation: Bilateral: diminished breath sounds, rhonchi Percussion: Bilateral: not dull Cardiovascular: regular rate and rhythm, other (tachycardia, S1,S2) Gastrointestinal: normoactive bowel sounds, soft, non-tender, non-distended (protuberant) Integumentary: normal Extremities: no cyanosis, pulses normal, no ischemia or petechiae, edema Neurologic: non-focal exam (grossly), pupils equal and round, other (sedated; follows commands during SAT) Psychiatric: other (unable to assess re: AMS) CBC and BMP: 03/29/21 04:50 03/29/21 04:50 ABG, PT/INR, D-dimer: ABG ABG pH 7.353 pH Units (7.350-7.450) 03/25/21 12:35 POC ABG pCO2 71.9 mmHg (32.0-48.0) H 03/12/21 21:54 ABG pCO2 61.9 mm Hg 03/25/21 12:35 POC ABG pO2 53.6 mmHg (83-108) L 03/12/21 21:54 ABG pO2 100.5 mm Hg (80.0-90.0) H 03/25/21 12:35 POC ABG HCO3 30.0 03/12/21 21:54 ABG O2 Saturation 97.3 % (95.0-99.0) 03/25/21 12:35 PT/INR, D-dimer PT 13.0 Sec. (12.2-14.9) 03/29/21 04:50 INR 0.88 (0.87-1.13) 03/29/21 04:50 D-Dimer 1359.12 ng/mlDDU (0-234) H 03/17/21 04:40 Abnormal lab findings: Abnormal Labs 03/08/21 03/08/21 03/08/21 20:24 20:24 20:24 WBC 22.6 H RBC 5.44 H Hgb 15.7 H Hct 49.2 H MCV MCHC RDW Plt Count Lymph % (Auto) [place] % (Auto) [place] # (Auto) Seg Neutrophils % Seg Neuts % (Manual) 83.0 H Lymphocytes % (Manual) 9.0 L Monocytes % (Manual) 8.0 H Nucleated RBC % Seg Neutrophils # Seg Neutrophils # Man 18.8 H Lymphocytes # (Manual) Monocytes # (Manual) 1.8 H PT 16.1 H INR 1.17 H D-Dimer > 60536 H ABG pH POC ABG pCO2 POC ABG pO2 ABG pO2 ABG HCO3 ABG O2 Saturation ABG Base Excess ABG Hemoglobin ABG Oxyhemoglobin ABG Sodium ABG Potassium ABG Glucose Oxyhemoglobin Sodium 136 L Potassium Chloride 93.9 L Carbon Dioxide BUN 29 H Creatinine Glucose 208 H POC Glucose Lactic Acid Phosphorus Magnesium Ferritin Lactate Dehydrogenase 624 H C-Reactive Protein 18.00 H NT-Pro-B Natriuret Pep 1053 H Total Protein Albumin Triglycerides Arterial Blood Glucose Ur Specific [place] Coronavirus (PCR) 03/08/21 03/08/21 03/09/21 20:24 20:24 04:10 WBC RBC Hgb Hct MCV MCHC RDW Plt Count Lymph % (Auto) [place] % (Auto) [place] # (Auto) Seg Neutrophils % Seg Neuts % (Manual) Lymphocytes % (Manual) Monocytes % (Manual) Nucleated RBC % Seg Neutrophils # Seg Neutrophils # Man Lymphocytes # (Manual) Monocytes # (Manual) PT INR D-Dimer ABG pH POC ABG pCO2 POC ABG pO2 ABG pO2 ABG HCO3 ABG O2 Saturation ABG Base Excess ABG Hemoglobin ABG Oxyhemoglobin ABG Sodium ABG Potassium ABG Glucose Oxyhemoglobin Sodium Potassium Chloride Carbon Dioxide BUN Creatinine Glucose POC Glucose Lactic Acid 2.10 H* Phosphorus Magnesium Ferritin 877.5 H Lactate Dehydrogenase C-Reactive Protein NT-Pro-B Natriuret Pep Total Protein Albumin Triglycerides Arterial Blood Glucose Ur Specific [place] 1.041 H Coronavirus (PCR) 03/09/21 03/09/21 03/09/21 07:46 08:00 13:01 WBC RBC Hgb Hct MCV MCHC RDW Plt Count Lymph % (Auto) [place] % (Auto) [place] # (Auto) Seg Neutrophils % Seg Neuts % (Manual) Lymphocytes % (Manual) Monocytes % (Manual) Nucleated RBC % Seg Neutrophils # Seg Neutrophils # Man Lymphocytes # (Manual) Monocytes # (Manual) PT INR D-Dimer ABG pH POC ABG pCO2 POC ABG pO2 ABG pO2 ABG HCO3 ABG O2 Saturation ABG Base Excess ABG Hemoglobin ABG Oxyhemoglobin ABG Sodium ABG Potassium ABG Glucose Oxyhemoglobin Sodium Potassium Chloride Carbon Dioxide BUN Creatinine Glucose POC Glucose 191 H 182 H Lactic Acid Phosphorus Magnesium Ferritin Lactate Dehydrogenase C-Reactive Protein NT-Pro-B Natriuret Pep Total Protein Albumin Triglycerides Arterial Blood Glucose Ur Specific [place] Coronavirus (PCR) Positive A 03/09/21 03/09/21 03/09/21 15:19 17:48 18:10 WBC RBC Hgb Hct MCV MCHC RDW Plt Count Lymph % (Auto) [place] % (Auto) [place] # (Auto) Seg Neutrophils % Seg Neuts % (Manual) Lymphocytes % (Manual) Monocytes % (Manual) Nucleated RBC % Seg Neutrophils # Seg Neutrophils # Man Lymphocytes # (Manual) Monocytes # (Manual) PT INR D-Dimer ABG pH POC ABG pCO2 POC ABG pO2 ABG pO2 47.3 L ABG HCO3 26.3 H ABG O2 Saturation 83.7 L ABG Base Excess ABG Hemoglobin ABG Oxyhemoglobin ABG Sodium ABG Potassium ABG Glucose Oxyhemoglobin 82.1 L Sodium Potassium Chloride Carbon Dioxide BUN 29 H Creatinine Glucose 214 H POC Glucose 194 H Lactic Acid Phosphorus Magnesium Ferritin Lactate Dehydrogenase C-Reactive Protein NT-Pro-B Natriuret Pep Total Protein Albumin 3.4 L Triglycerides Arterial Blood Glucose Ur Specific [place] Coronavirus (PCR) 03/09/21 03/10/21 03/10/21 20:40 04:29 04:29 WBC 20.6 H RBC 5.07 H Hgb Hct 46.2 H MCV MCHC RDW Plt Count Lymph % (Auto) [place] % (Auto) [place] # (Auto) Seg Neutrophils % Seg Neuts % (Manual) 94.0 H Lymphocytes % (Manual) 1.0 L Monocytes % (Manual) Nucleated RBC % 3.0 H Seg Neutrophils # Seg Neutrophils # Man 19.4 H Lymphocytes # (Manual) 0.2 L Monocytes # (Manual) 1.0 H PT INR D-Dimer ABG pH POC ABG pCO2 POC ABG pO2 ABG pO2 ABG HCO3 ABG O2 Saturation ABG Base Excess ABG Hemoglobin ABG Oxyhemoglobin ABG Sodium ABG Potassium ABG Glucose Oxyhemoglobin Sodium Potassium Chloride Carbon Dioxide BUN 29 H Creatinine Glucose 188 H POC Glucose 176 H Lactic Acid Phosphorus Magnesium Ferritin Lactate Dehydrogenase C-Reactive Protein NT-Pro-B Natriuret Pep Total Protein Albumin 3.3 L Triglycerides Arterial Blood Glucose Ur Specific [place] Coronavirus (PCR) 03/10/21 03/10/21 03/10/21 05:22 10:27 15:25 WBC RBC Hgb Hct MCV MCHC RDW Plt Count Lymph % (Auto) [place] % (Auto) [place] # (Auto) Seg Neutrophils % Seg Neuts % (Manual) Lymphocytes % (Manual) Monocytes % (Manual) Nucleated RBC % Seg Neutrophils # Seg Neutrophils # Man Lymphocytes # (Manual) Monocytes # (Manual) PT INR D-Dimer ABG pH 7.488 H 7.488 H POC ABG pCO2 POC ABG pO2 ABG pO2 47.7 L 50.5 L ABG HCO3 ABG O2 Saturation 86.2 L 87.9 L ABG Base Excess ABG Hemoglobin ABG Oxyhemoglobin ABG Sodium ABG Potassium ABG Glucose Oxyhemoglobin 84.6 L 86.2 L Sodium Potassium Chloride Carbon Dioxide BUN Creatinine Glucose POC Glucose 155 H Lactic Acid Phosphorus Magnesium Ferritin Lactate Dehydrogenase C-Reactive Protein NT-Pro-B Natriuret Pep Total Protein Albumin Triglycerides Arterial Blood Glucose Ur Specific [place] Coronavirus (PCR) 03/10/21 03/10/21 03/11/21 18:10 18:55 00:07 WBC RBC Hgb Hct MCV MCHC RDW Plt Count Lymph % (Auto) [place] % (Auto) [place] # (Auto) Seg Neutrophils % Seg Neuts % (Manual) Lymphocytes % (Manual) Monocytes % (Manual) Nucleated RBC % Seg Neutrophils # Seg Neutrophils # Man Lymphocytes # (Manual) Monocytes # (Manual) PT INR D-Dimer ABG pH 7.343 L POC ABG pCO2 POC ABG pO2 ABG pO2 60.4 L ABG HCO3 27.9 H ABG O2 Saturation 88.7 L ABG Base Excess ABG Hemoglobin ABG Oxyhemoglobin ABG Sodium ABG Potassium ABG Glucose Oxyhemoglobin 86.9 L Sodium Potassium Chloride Carbon Dioxide BUN Creatinine Glucose POC Glucose 187 H 139 H Lactic Acid Phosphorus Magnesium Ferritin Lactate Dehydrogenase C-Reactive Protein NT-Pro-B Natriuret Pep Total Protein Albumin Triglycerides Arterial Blood Glucose Ur Specific [place] Coronavirus (PCR) 03/11/21 03/11/21 03/11/21 02:09 04:28 08:06 WBC RBC Hgb Hct MCV MCHC RDW Plt Count Lymph % (Auto) [place] % (Auto) [place] # (Auto) Seg Neutrophils % Seg Neuts % (Manual) Lymphocytes % (Manual) Monocytes % (Manual) Nucleated RBC % Seg Neutrophils # Seg Neutrophils # Man Lymphocytes # (Manual) Monocytes # (Manual) PT INR D-Dimer ABG pH 7.277 L POC ABG pCO2 55.9 H POC ABG pO2 54.4 L ABG pO2 ABG HCO3 ABG O2 Saturation ABG Base Excess ABG Hemoglobin ABG Oxyhemoglobin 83.0 L ABG Sodium ABG Potassium 4.8 H ABG Glucose 180 H Oxyhemoglobin Sodium Potassium Chloride Carbon Dioxide BUN 38 H Creatinine Glucose 249 H POC Glucose 278 H Lactic Acid Phosphorus Magnesium Ferritin Lactate Dehydrogenase C-Reactive Protein NT-Pro-B Natriuret Pep Total Protein Albumin 3.2 L Triglycerides Arterial Blood Glucose 180 H Ur Specific [place] Coronavirus (PCR) 03/11/21 03/11/21 03/11/21 11:29 15:06 15:48 WBC RBC Hgb Hct MCV MCHC RDW Plt Count Lymph % (Auto) [place] % (Auto) [place] # (Auto) Seg Neutrophils % Seg Neuts % (Manual) Lymphocytes % (Manual) Monocytes % (Manual) Nucleated RBC % Seg Neutrophils # Seg Neutrophils # Man Lymphocytes # (Manual) Monocytes # (Manual) PT INR D-Dimer ABG pH 7.260 L POC ABG pCO2 POC ABG pO2 ABG pO2 53.5 L ABG HCO3 29.5 H ABG O2 Saturation 84.0 L ABG Base Excess ABG Hemoglobin ABG Oxyhemoglobin ABG Sodium ABG Potassium ABG Glucose Oxyhemoglobin 82.3 L Sodium Potassium Chloride Carbon Dioxide BUN Creatinine Glucose POC Glucose 288 H 295 H Lactic Acid Phosphorus Magnesium Ferritin Lactate Dehydrogenase C-Reactive Protein NT-Pro-B Natriuret Pep Total Protein Albumin Triglycerides Arterial Blood Glucose Ur Specific [place] Coronavirus (PCR) 03/12/21 03/12/21 03/12/21 00:01 05:24 08:03 WBC RBC Hgb Hct MCV MCHC RDW Plt Count Lymph % (Auto) [place] % (Auto) [place] # (Auto) Seg Neutrophils % Seg Neuts % (Manual) Lymphocytes % (Manual) Monocytes % (Manual) Nucleated RBC % Seg Neutrophils # Seg Neutrophils # Man Lymphocytes # (Manual) Monocytes # (Manual) PT INR D-Dimer ABG pH POC ABG pCO2 POC ABG pO2 ABG pO2 ABG HCO3 ABG O2 Saturation ABG Base Excess ABG Hemoglobin ABG Oxyhemoglobin ABG Sodium ABG Potassium ABG Glucose Oxyhemoglobin Sodium 135 L Potassium Chloride Carbon Dioxide BUN 48 H Creatinine Glucose 358 H POC Glucose 304 H 310 H Lactic Acid Phosphorus Magnesium Ferritin Lactate Dehydrogenase C-Reactive Protein NT-Pro-B Natriuret Pep Total Protein 6.0 L Albumin 2.9 L Triglycerides Arterial Blood Glucose Ur Specific [place] Coronavirus (PCR) 03/12/21 03/12/21 03/12/21 08:03 10:43 11:31 WBC 14.6 H RBC Hgb Hct MCV MCHC RDW Plt Count Lymph % (Auto) [place] % (Auto) [place] # (Auto) Seg Neutrophils % Seg Neuts % (Manual) Lymphocytes % (Manual) Monocytes % (Manual) Nucleated RBC % Seg Neutrophils # Seg Neutrophils # Man Lymphocytes # (Manual) Monocytes # (Manual) PT INR D-Dimer ABG pH 7.248 L POC ABG pCO2 POC ABG pO2 ABG pO2 73.7 L ABG HCO3 32.0 H ABG O2 Saturation 93.9 L ABG Base Excess ABG Hemoglobin ABG Oxyhemoglobin ABG Sodium ABG Potassium ABG Glucose Oxyhemoglobin 92.1 L Sodium Potassium Chloride Carbon Dioxide BUN Creatinine Glucose POC Glucose 359 H Lactic Acid Phosphorus Magnesium Ferritin Lactate Dehydrogenase C-Reactive Protein NT-Pro-B Natriuret Pep Total Protein Albumin Triglycerides Arterial Blood Glucose Ur Specific [place] Coronavirus (PCR) 03/12/21 03/12/21 03/13/21 17:20 21:54 00:02 WBC RBC Hgb Hct MCV MCHC RDW Plt Count Lymph % (Auto) [place] % (Auto) [place] # (Auto) Seg Neutrophils % Seg Neuts % (Manual) Lymphocytes % (Manual) Monocytes % (Manual) Nucleated RBC % Seg Neutrophils # Seg Neutrophils # Man Lymphocytes # (Manual) Monocytes # (Manual) PT INR D-Dimer ABG pH 7.238 L POC ABG pCO2 71.9 H POC ABG pO2 53.6 L ABG pO2 ABG HCO3 ABG O2 Saturation ABG Base Excess ABG Hemoglobin ABG Oxyhemoglobin 84.8 L ABG Sodium 134.2 L ABG Potassium 4.9 H ABG Glucose 306 H Oxyhemoglobin Sodium Potassium Chloride Carbon Dioxide BUN Creatinine Glucose POC Glucose 374 H 308 H Lactic Acid Phosphorus Magnesium Ferritin Lactate Dehydrogenase C-Reactive Protein NT-Pro-B Natriuret Pep Total Protein Albumin Triglycerides Arterial Blood Glucose 306 H Ur Specific [place] Coronavirus (PCR) 03/13/21 03/13/21 03/13/21 05:22 05:44 05:44 WBC 13.9 H RBC Hgb Hct MCV MCHC RDW Plt Count Lymph % (Auto) [place] % (Auto) [place] # (Auto) Seg Neutrophils % Seg Neuts % (Manual) Lymphocytes % (Manual) Monocytes % (Manual) Nucleated RBC % Seg Neutrophils # Seg Neutrophils # Man Lymphocytes # (Manual) Monocytes # (Manual) PT INR D-Dimer 3567.97 H ABG pH POC ABG pCO2 POC ABG pO2 ABG pO2 ABG HCO3 ABG O2 Saturation ABG Base Excess ABG Hemoglobin ABG Oxyhemoglobin ABG Sodium ABG Potassium ABG Glucose Oxyhemoglobin Sodium Potassium Chloride Carbon Dioxide BUN Creatinine Glucose POC Glucose 316 H Lactic Acid Phosphorus Magnesium Ferritin Lactate Dehydrogenase C-Reactive Protein NT-Pro-B Natriuret Pep Total Protein Albumin Triglycerides Arterial Blood Glucose Ur Specific [place] Coronavirus (PCR) 03/13/21 03/13/21 03/13/21 05:44 05:44 11:15 WBC RBC Hgb Hct MCV MCHC RDW Plt Count Lymph % (Auto) [place] % (Auto) [place] # (Auto) Seg Neutrophils % Seg Neuts % (Manual) Lymphocytes % (Manual) Monocytes % (Manual) Nucleated RBC % Seg Neutrophils # Seg Neutrophils # Man Lymphocytes # (Manual) Monocytes # (Manual) PT INR D-Dimer ABG pH 7.310 L POC ABG pCO2 POC ABG pO2 ABG pO2 52.3 L ABG HCO3 34.1 H ABG O2 Saturation 86.8 L ABG Base Excess 5.5 H ABG Hemoglobin 13.8 L ABG Oxyhemoglobin ABG Sodium ABG Potassium ABG Glucose Oxyhemoglobin 85.1 L Sodium Potassium Chloride Carbon Dioxide BUN Creatinine Glucose POC Glucose Lactic Acid Phosphorus Magnesium Ferritin 858.7 H Lactate Dehydrogenase 348 H C-Reactive Protein 2.80 H NT-Pro-B Natriuret Pep Total Protein Albumin Triglycerides Arterial Blood Glucose Ur Specific [place] Coronavirus (PCR) 03/13/21 03/13/21 03/13/21 11:21 15:47 19:23 WBC RBC Hgb Hct MCV MCHC RDW Plt Count Lymph % (Auto) [place] % (Auto) [place] # (Auto) Seg Neutrophils % Seg Neuts % (Manual) Lymphocytes % (Manual) Monocytes % (Manual) Nucleated RBC % Seg Neutrophils # Seg Neutrophils # Man Lymphocytes # (Manual) Monocytes # (Manual) PT INR D-Dimer ABG pH POC ABG pCO2 POC ABG pO2 ABG pO2 ABG HCO3 ABG O2 Saturation ABG Base Excess ABG Hemoglobin ABG Oxyhemoglobin ABG Sodium ABG Potassium ABG Glucose Oxyhemoglobin Sodium 136 L Potassium 5.9 H Chloride Carbon Dioxide BUN 50 H Creatinine Glucose 397 H POC Glucose 322 H 317 H Lactic Acid Phosphorus Magnesium Ferritin Lactate Dehydrogenase C-Reactive Protein NT-Pro-B Natriuret Pep Total Protein Albumin Triglycerides Arterial Blood Glucose Ur Specific [place] Coronavirus (PCR) 03/13/21 03/14/21 03/14/21 23:46 05:32 05:50 WBC 11.6 H RBC Hgb Hct MCV MCHC RDW Plt Count Lymph % (Auto) [place] % (Auto) [place] # (Auto) Seg Neutrophils % Seg Neuts % (Manual) Lymphocytes % (Manual) Monocytes % (Manual) Nucleated RBC % Seg Neutrophils # Seg Neutrophils # Man Lymphocytes # (Manual) Monocytes # (Manual) PT INR D-Dimer ABG pH POC ABG pCO2 POC ABG pO2 ABG pO2 ABG HCO3 ABG O2 Saturation ABG Base Excess ABG Hemoglobin ABG Oxyhemoglobin ABG Sodium ABG Potassium ABG Glucose Oxyhemoglobin Sodium Potassium Chloride Carbon Dioxide BUN Creatinine Glucose POC Glucose 332 H 316 H Lactic Acid Phosphorus Magnesium Ferritin Lactate Dehydrogenase C-Reactive Protein NT-Pro-B Natriuret Pep Total Protein Albumin Triglycerides Arterial Blood Glucose Ur Specific [place] Coronavirus (PCR) 03/14/21 03/14/21 03/14/21 05:50 11:33 16:53 WBC RBC Hgb Hct MCV MCHC RDW Plt Count Lymph % (Auto) [place] % (Auto) [place] # (Auto) Seg Neutrophils % Seg Neuts % (Manual) Lymphocytes % (Manual) Monocytes % (Manual) Nucleated RBC % Seg Neutrophils # Seg Neutrophils # Man Lymphocytes # (Manual) Monocytes # (Manual) PT INR D-Dimer ABG pH POC ABG pCO2 POC ABG pO2 ABG pO2 ABG HCO3 ABG O2 Saturation ABG Base Excess ABG Hemoglobin ABG Oxyhemoglobin ABG Sodium ABG Potassium ABG Glucose Oxyhemoglobin Sodium Potassium 5.9 H Chloride Carbon Dioxide 31 H BUN 48 H Creatinine Glucose 380 H POC Glucose 315 H 235 H Lactic Acid Phosphorus Magnesium 3.40 H Ferritin Lactate Dehydrogenase C-Reactive Protein NT-Pro-B Natriuret Pep Total Protein Albumin Triglycerides Arterial Blood Glucose Ur Specific [place] Coronavirus (PCR) 03/14/21 03/14/21 03/15/21 18:34 23:27 01:22 WBC RBC Hgb Hct 46.3 H MCV MCHC RDW Plt Count Lymph % (Auto) [place] % (Auto) [place] # (Auto) Seg Neutrophils % Seg Neuts % (Manual) Lymphocytes % (Manual) Monocytes % (Manual) Nucleated RBC % Seg Neutrophils # Seg Neutrophils # Man Lymphocytes # (Manual) Monocytes # (Manual) PT INR D-Dimer ABG pH POC ABG pCO2 POC ABG pO2 ABG pO2 ABG HCO3 ABG O2 Saturation ABG Base Excess ABG Hemoglobin ABG Oxyhemoglobin ABG Sodium ABG Potassium ABG Glucose Oxyhemoglobin Sodium 146 H Potassium Chloride Carbon Dioxide 34 H BUN 49 H Creatinine Glucose 285 H POC Glucose 203 H Lactic Acid Phosphorus Magnesium Ferritin Lactate Dehydrogenase C-Reactive Protein NT-Pro-B Natriuret Pep Total Protein Albumin Triglycerides Arterial Blood Glucose Ur Specific [place] Coronavirus (PCR) 03/15/21 03/15/21 03/15/21 04:00 06:06 06:06 WBC RBC Hgb Hct MCV MCHC RDW Plt Count Lymph % (Auto) [place] % (Auto) [place] # (Auto) Seg Neutrophils % Seg Neuts % (Manual) Lymphocytes % (Manual) Monocytes % (Manual) Nucleated RBC % Seg Neutrophils # Seg Neutrophils # Man Lymphocytes # (Manual) Monocytes # (Manual) PT INR D-Dimer 1781.79 H ABG pH POC ABG pCO2 POC ABG pO2 ABG pO2 ABG HCO3 ABG O2 Saturation ABG Base Excess ABG Hemoglobin ABG Oxyhemoglobin ABG Sodium ABG Potassium ABG Glucose Oxyhemoglobin Sodium 148 H Potassium 5.7 H D Chloride 108.0 H Carbon Dioxide 31 H BUN 46 H Creatinine Glucose 139 H POC Glucose Lactic Acid Phosphorus 4.80 H D Magnesium 3.00 H Ferritin 976.4 H Lactate Dehydrogenase 630 H C-Reactive Protein NT-Pro-B Natriuret Pep Total Protein Albumin Triglycerides Arterial Blood Glucose Ur Specific [place] Coronavirus (PCR) 03/15/21 03/15/21 03/15/21 11:56 14:05 17:09 WBC RBC Hgb Hct MCV MCHC RDW Plt Count Lymph % (Auto) [place] % (Auto) [place] # (Auto) Seg Neutrophils % Seg Neuts % (Manual) Lymphocytes % (Manual) Monocytes % (Manual) Nucleated RBC % Seg Neutrophils # Seg Neutrophils # Man Lymphocytes # (Manual) Monocytes # (Manual) PT INR D-Dimer ABG pH POC ABG pCO2 POC ABG pO2 ABG pO2 52.1 L ABG HCO3 36.6 H ABG O2 Saturation 87.6 L ABG Base Excess 9.5 H ABG Hemoglobin ABG Oxyhemoglobin ABG Sodium ABG Potassium ABG Glucose Oxyhemoglobin 85.7 L Sodium Potassium Chloride Carbon Dioxide BUN Creatinine Glucose POC Glucose 219 H 263 H Lactic Acid Phosphorus Magnesium Ferritin Lactate Dehydrogenase C-Reactive Protein NT-Pro-B Natriuret Pep Total Protein Albumin Triglycerides Arterial Blood Glucose Ur Specific [place] Coronavirus (PCR) 03/16/21 03/16/21 03/16/21 00:32 04:11 04:11 WBC 11.9 H RBC Hgb Hct MCV MCHC 30 L RDW Plt Count Lymph % (Auto) [place] % (Auto) [place] # (Auto) Seg Neutrophils % Seg Neuts % (Manual) Lymphocytes % (Manual) Monocytes % (Manual) Nucleated RBC % Seg Neutrophils # Seg Neutrophils # Man Lymphocytes # (Manual) Monocytes # (Manual) PT INR D-Dimer ABG pH POC ABG pCO2 POC ABG pO2 ABG pO2 ABG HCO3 ABG O2 Saturation ABG Base Excess ABG Hemoglobin ABG Oxyhemoglobin ABG Sodium ABG Potassium ABG Glucose Oxyhemoglobin Sodium 151 H Potassium Chloride Carbon Dioxide 35 H BUN 48 H Creatinine Glucose 152 H POC Glucose 165 H Lactic Acid Phosphorus Magnesium Ferritin Lactate Dehydrogenase C-Reactive Protein NT-Pro-B Natriuret Pep Total Protein Albumin Triglycerides Arterial Blood Glucose Ur Specific [place] Coronavirus (PCR) 03/16/21 03/16/21 03/16/21 04:11 05:26 11:35 WBC RBC Hgb Hct MCV MCHC RDW Plt Count Lymph % (Auto) [place] % (Auto) [place] # (Auto) Seg Neutrophils % Seg Neuts % (Manual) Lymphocytes % (Manual) Monocytes % (Manual) Nucleated RBC % Seg Neutrophils # Seg Neutrophils # Man Lymphocytes # (Manual) Monocytes # (Manual) PT INR D-Dimer ABG pH POC ABG pCO2 POC ABG pO2 ABG pO2 ABG HCO3 ABG O2 Saturation ABG Base Excess ABG Hemoglobin ABG Oxyhemoglobin ABG Sodium ABG Potassium ABG Glucose Oxyhemoglobin Sodium Potassium Chloride Carbon Dioxide BUN Creatinine Glucose POC Glucose 162 H 187 H Lactic Acid Phosphorus Magnesium Ferritin Lactate Dehydrogenase C-Reactive Protein NT-Pro-B Natriuret Pep Total Protein Albumin Triglycerides 267 H Arterial Blood Glucose Ur Specific [place] Coronavirus (PCR) 03/16/21 03/16/21 03/16/21 17:29 22:25 23:22 WBC RBC Hgb Hct MCV MCHC RDW Plt Count Lymph % (Auto) [place] % (Auto) [place] # (Auto) Seg Neutrophils % Seg Neuts % (Manual) Lymphocytes % (Manual) Monocytes % (Manual) Nucleated RBC % Seg Neutrophils # Seg Neutrophils # Man Lymphocytes # (Manual) Monocytes # (Manual) PT INR D-Dimer ABG pH POC ABG pCO2 POC ABG pO2 ABG pO2 ABG HCO3 ABG O2 Saturation ABG Base Excess ABG Hemoglobin ABG Oxyhemoglobin ABG Sodium ABG Potassium ABG Glucose Oxyhemoglobin Sodium Potassium Chloride Carbon Dioxide BUN Creatinine Glucose POC Glucose 237 H 165 H 189 H Lactic Acid Phosphorus Magnesium Ferritin Lactate Dehydrogenase C-Reactive Protein NT-Pro-B Natriuret Pep Total Protein Albumin Triglycerides Arterial Blood Glucose Ur Specific [place] Coronavirus (PCR) 03/17/21 03/17/21 03/17/21 04:40 04:40 04:40 WBC 14.1 H RBC Hgb Hct MCV MCHC RDW 15.3 H Plt Count Lymph % (Auto) 12.6 L [place] % (Auto) 11.3 H [place] # (Auto) 1.6 H Seg Neutrophils % 74.9 H Seg Neuts % (Manual) Lymphocytes % (Manual) Monocytes % (Manual) Nucleated RBC % Seg Neutrophils # 10.5 H Seg Neutrophils # Man Lymphocytes # (Manual) Monocytes # (Manual) PT INR D-Dimer 1359.12 H ABG pH POC ABG pCO2 POC ABG pO2 ABG pO2 ABG HCO3 ABG O2 Saturation ABG Base Excess ABG Hemoglobin ABG Oxyhemoglobin ABG Sodium ABG Potassium ABG Glucose Oxyhemoglobin Sodium 148 H Potassium Chloride 107.5 H Carbon Dioxide 33 H BUN 42 H Creatinine Glucose 183 H POC Glucose Lactic Acid Phosphorus Magnesium 2.70 H Ferritin Lactate Dehydrogenase C-Reactive Protein NT-Pro-B Natriuret Pep Total Protein Albumin Triglycerides Arterial Blood Glucose Ur Specific [place] Coronavirus (PCR) 03/17/21 03/17/21 03/17/21 05:53 11:05 11:51 WBC RBC Hgb Hct MCV MCHC RDW Plt Count Lymph % (Auto) [place] % (Auto) [place] # (Auto) Seg Neutrophils % Seg Neuts % (Manual) Lymphocytes % (Manual) Monocytes % (Manual) Nucleated RBC % Seg Neutrophils # Seg Neutrophils # Man Lymphocytes # (Manual) Monocytes # (Manual) PT INR D-Dimer ABG pH POC ABG pCO2 POC ABG pO2 ABG pO2 ABG HCO3 35.7 H ABG O2 Saturation ABG Base Excess 8.7 H ABG Hemoglobin ABG Oxyhemoglobin ABG Sodium ABG Potassium ABG Glucose Oxyhemoglobin 94.2 L Sodium Potassium Chloride Carbon Dioxide BUN Creatinine Glucose POC Glucose 176 H 197 H Lactic Acid Phosphorus Magnesium Ferritin Lactate Dehydrogenase C-Reactive Protein NT-Pro-B Natriuret Pep Total Protein Albumin Triglycerides Arterial Blood Glucose Ur Specific [place] Coronavirus (PCR) 03/17/21 03/17/21 03/17/21 16:54 21:10 23:33 WBC RBC Hgb Hct MCV MCHC RDW Plt Count Lymph % (Auto) [place] % (Auto) [place] # (Auto) Seg Neutrophils % Seg Neuts % (Manual) Lymphocytes % (Manual) Monocytes % (Manual) Nucleated RBC % Seg Neutrophils # Seg Neutrophils # Man Lymphocytes # (Manual) Monocytes # (Manual) PT INR D-Dimer ABG pH POC ABG pCO2 POC ABG pO2 ABG pO2 ABG HCO3 ABG O2 Saturation ABG Base Excess ABG Hemoglobin ABG Oxyhemoglobin ABG Sodium ABG Potassium ABG Glucose Oxyhemoglobin Sodium Potassium Chloride Carbon Dioxide BUN Creatinine Glucose POC Glucose 135 H 160 H 138 H Lactic Acid Phosphorus Magnesium Ferritin Lactate Dehydrogenase C-Reactive Protein NT-Pro-B Natriuret Pep Total Protein Albumin Triglycerides Arterial Blood Glucose Ur Specific [place] Coronavirus (PCR) 03/18/21 03/18/21 03/18/21 04:18 04:50 05:43 WBC RBC Hgb Hct MCV MCHC RDW Plt Count Lymph % (Auto) [place] % (Auto) [place] # (Auto) Seg Neutrophils % Seg Neuts % (Manual) Lymphocytes % (Manual) Monocytes % (Manual) Nucleated RBC % Seg Neutrophils # Seg Neutrophils # Man Lymphocytes # (Manual) Monocytes # (Manual) PT INR D-Dimer ABG pH POC ABG pCO2 POC ABG pO2 ABG pO2 59.8 L ABG HCO3 36.5 H ABG O2 Saturation 90.7 L ABG Base Excess 9.4 H ABG Hemoglobin 12.0 L ABG Oxyhemoglobin ABG Sodium ABG Potassium ABG Glucose Oxyhemoglobin 88.9 L Sodium Potassium Chloride 107.2 H Carbon Dioxide 34 H BUN 38 H Creatinine 0.7 L Glucose 136 H POC Glucose 128 H Lactic Acid Phosphorus Magnesium Ferritin Lactate Dehydrogenase C-Reactive Protein NT-Pro-B Natriuret Pep Total Protein Albumin Triglycerides Arterial Blood Glucose Ur Specific [place] Coronavirus (PCR) 03/18/21 03/18/21 03/18/21 11:20 17:35 23:35 WBC RBC Hgb Hct MCV MCHC RDW Plt Count Lymph % (Auto) [place] % (Auto) [place] # (Auto) Seg Neutrophils % Seg Neuts % (Manual) Lymphocytes % (Manual) Monocytes % (Manual) Nucleated RBC % Seg Neutrophils # Seg Neutrophils # Man Lymphocytes # (Manual) Monocytes # (Manual) PT INR D-Dimer ABG pH POC ABG pCO2 POC ABG pO2 ABG pO2 70.7 L ABG HCO3 33.6 H ABG O2 Saturation ABG Base Excess 8.0 H ABG Hemoglobin ABG Oxyhemoglobin ABG Sodium ABG Potassium ABG Glucose Oxyhemoglobin 93.7 L Sodium Potassium Chloride Carbon Dioxide BUN Creatinine Glucose POC Glucose 189 H 144 H Lactic Acid Phosphorus Magnesium Ferritin Lactate Dehydrogenase C-Reactive Protein NT-Pro-B Natriuret Pep Total Protein Albumin Triglycerides Arterial Blood Glucose Ur Specific [place] Coronavirus (PCR) 03/19/21 03/19/21 03/19/21 02:35 04:20 04:20 WBC 14.0 H RBC Hgb Hct MCV MCHC RDW Plt Count Lymph % (Auto) [place] % (Auto) [place] # (Auto) Seg Neutrophils % Seg Neuts % (Manual) Lymphocytes % (Manual) Monocytes % (Manual) Nucleated RBC % Seg Neutrophils # Seg Neutrophils # Man Lymphocytes # (Manual) Monocytes # (Manual) PT INR D-Dimer ABG pH POC ABG pCO2 POC ABG pO2 ABG pO2 ABG HCO3 32.0 H ABG O2 Saturation ABG Base Excess 5.2 H ABG Hemoglobin 13.6 L ABG Oxyhemoglobin ABG Sodium ABG Potassium ABG Glucose Oxyhemoglobin 94.6 L Sodium 146 H Potassium Chloride 109.3 H Carbon Dioxide BUN 36 H Creatinine Glucose 203 H POC Glucose Lactic Acid Phosphorus Magnesium Ferritin Lactate Dehydrogenase C-Reactive Protein NT-Pro-B Natriuret Pep Total Protein Albumin Triglycerides 254 H Arterial Blood Glucose Ur Specific [place] Coronavirus (PCR) 03/19/21 03/19/21 03/19/21 05:45 11:36 23:51 WBC RBC Hgb Hct MCV MCHC RDW Plt Count Lymph % (Auto) [place] % (Auto) [place] # (Auto) Seg Neutrophils % Seg Neuts % (Manual) Lymphocytes % (Manual) Monocytes % (Manual) Nucleated RBC % Seg Neutrophils # Seg Neutrophils # Man Lymphocytes # (Manual) Monocytes # (Manual) PT INR D-Dimer ABG pH POC ABG pCO2 POC ABG pO2 ABG pO2 ABG HCO3 ABG O2 Saturation ABG Base Excess ABG Hemoglobin ABG Oxyhemoglobin ABG Sodium ABG Potassium ABG Glucose Oxyhemoglobin Sodium Potassium Chloride Carbon Dioxide BUN Creatinine Glucose POC Glucose 164 H 172 H 140 H Lactic Acid Phosphorus Magnesium Ferritin Lactate Dehydrogenase C-Reactive Protein NT-Pro-B Natriuret Pep Total Protein Albumin Triglycerides Arterial Blood Glucose Ur Specific [place] Coronavirus (PCR) 03/20/21 03/20/21 03/20/21 03:29 04:45 04:45 WBC RBC Hgb Hct MCV 95 H MCHC RDW 15.7 H Plt Count Lymph % (Auto) [place] % (Auto) [place] # (Auto) Seg Neutrophils % Seg Neuts % (Manual) Lymphocytes % (Manual) Monocytes % (Manual) Nucleated RBC % Seg Neutrophils # Seg Neutrophils # Man Lymphocytes # (Manual) Monocytes # (Manual) PT INR D-Dimer ABG pH 7.349 L POC ABG pCO2 POC ABG pO2 ABG pO2 ABG HCO3 33.7 H ABG O2 Saturation ABG Base Excess 6.4 H ABG Hemoglobin 11.8 L ABG Oxyhemoglobin ABG Sodium ABG Potassium ABG Glucose Oxyhemoglobin 93.9 L Sodium 146 H Potassium 5.5 H Chloride 111.1 H Carbon Dioxide BUN 34 H Creatinine 0.7 L Glucose 145 H POC Glucose Lactic Acid Phosphorus Magnesium 2.50 H Ferritin Lactate Dehydrogenase C-Reactive Protein NT-Pro-B Natriuret Pep Total Protein Albumin Triglycerides Arterial Blood Glucose Ur Specific [place] Coronavirus (PCR) 03/20/21 03/20/21 03/20/21 05:41 09:08 11:54 WBC RBC Hgb Hct MCV MCHC RDW Plt Count Lymph % (Auto) [place] % (Auto) [place] # (Auto) Seg Neutrophils % Seg Neuts % (Manual) Lymphocytes % (Manual) Monocytes % (Manual) Nucleated RBC % Seg Neutrophils # Seg Neutrophils # Man Lymphocytes # (Manual) Monocytes # (Manual) PT INR D-Dimer ABG pH POC ABG pCO2 POC ABG pO2 ABG pO2 ABG HCO3 ABG O2 Saturation ABG Base Excess ABG Hemoglobin ABG Oxyhemoglobin ABG Sodium ABG Potassium ABG Glucose Oxyhemoglobin Sodium Potassium Chloride Carbon Dioxide BUN Creatinine Glucose POC Glucose 108 H 132 H 162 H Lactic Acid Phosphorus Magnesium Ferritin Lactate Dehydrogenase C-Reactive Protein NT-Pro-B Natriuret Pep Total Protein Albumin Triglycerides Arterial Blood Glucose Ur Specific [place] Coronavirus (PCR) 03/20/21 03/21/21 03/21/21 17:28 00:31 04:44 WBC RBC Hgb Hct MCV MCHC RDW Plt Count Lymph % (Auto) [place] % (Auto) [place] # (Auto) Seg Neutrophils % Seg Neuts % (Manual) Lymphocytes % (Manual) Monocytes % (Manual) Nucleated RBC % Seg Neutrophils # Seg Neutrophils # Man Lymphocytes # (Manual) Monocytes # (Manual) PT INR D-Dimer ABG pH POC ABG pCO2 POC ABG pO2 ABG pO2 ABG HCO3 ABG O2 Saturation ABG Base Excess ABG Hemoglobin ABG Oxyhemoglobin ABG Sodium ABG Potassium ABG Glucose Oxyhemoglobin Sodium Potassium Chloride 108.3 H Carbon Dioxide BUN 30 H Creatinine 0.7 L Glucose POC Glucose 160 H 122 H Lactic Acid Phosphorus Magnesium Ferritin Lactate Dehydrogenase C-Reactive Protein NT-Pro-B Natriuret Pep Total Protein Albumin Triglycerides Arterial Blood Glucose Ur Specific [place] Coronavirus (PCR) 03/21/21 03/21/21 03/21/21 09:18 10:09 13:20 WBC RBC Hgb Hct MCV MCHC RDW Plt Count Lymph % (Auto) [place] % (Auto) [place] # (Auto) Seg Neutrophils % Seg Neuts % (Manual) Lymphocytes % (Manual) Monocytes % (Manual) Nucleated RBC % Seg Neutrophils # Seg Neutrophils # Man Lymphocytes # (Manual) Monocytes # (Manual) PT INR D-Dimer ABG pH POC ABG pCO2 POC ABG pO2 ABG pO2 60.7 L ABG HCO3 30.6 H ABG O2 Saturation 93.6 L ABG Base Excess 5.3 H ABG Hemoglobin ABG Oxyhemoglobin ABG Sodium ABG Potassium ABG Glucose Oxyhemoglobin 91.7 L Sodium Potassium Chloride Carbon Dioxide BUN Creatinine Glucose POC Glucose 169 H 122 H Lactic Acid Phosphorus Magnesium Ferritin Lactate Dehydrogenase C-Reactive Protein NT-Pro-B Natriuret Pep Total Protein Albumin Triglycerides Arterial Blood Glucose Ur Specific [place] Coronavirus (PCR) 03/21/21 03/21/21 03/21/21 17:25 22:41 23:52 WBC RBC Hgb Hct MCV MCHC RDW Plt Count Lymph % (Auto) [place] % (Auto) [place] # (Auto) Seg Neutrophils % Seg Neuts % (Manual) Lymphocytes % (Manual) Monocytes % (Manual) Nucleated RBC % Seg Neutrophils # Seg Neutrophils # Man Lymphocytes # (Manual) Monocytes # (Manual) PT INR D-Dimer ABG pH POC ABG pCO2 POC ABG pO2 ABG pO2 ABG HCO3 ABG O2 Saturation ABG Base Excess ABG Hemoglobin ABG Oxyhemoglobin ABG Sodium ABG Potassium ABG Glucose Oxyhemoglobin Sodium Potassium Chloride Carbon Dioxide BUN Creatinine Glucose POC Glucose 121 H 139 H 140 H Lactic Acid Phosphorus Magnesium Ferritin Lactate Dehydrogenase C-Reactive Protein NT-Pro-B Natriuret Pep Total Protein Albumin Triglycerides Arterial Blood Glucose Ur Specific [place] Coronavirus (PCR) 03/22/21 03/22/21 03/22/21 05:58 07:26 07:26 WBC RBC Hgb Hct MCV MCHC 31 L RDW 16.1 H Plt Count Lymph % (Auto) [place] % (Auto) [place] # (Auto) Seg Neutrophils % Seg Neuts % (Manual) Lymphocytes % (Manual) Monocytes % (Manual) Nucleated RBC % Seg Neutrophils # Seg Neutrophils # Man Lymphocytes # (Manual) Monocytes # (Manual) PT INR D-Dimer ABG pH POC ABG pCO2 POC ABG pO2 ABG pO2 ABG HCO3 ABG O2 Saturation ABG Base Excess ABG Hemoglobin ABG Oxyhemoglobin ABG Sodium ABG Potassium ABG Glucose Oxyhemoglobin Sodium Potassium Chloride 108.5 H Carbon Dioxide BUN 44 H Creatinine Glucose 120 H POC Glucose 131 H Lactic Acid Phosphorus 5.80 H Magnesium 2.80 H Ferritin Lactate Dehydrogenase C-Reactive Protein NT-Pro-B Natriuret Pep Total Protein Albumin Triglycerides 305 H Arterial Blood Glucose Ur Specific [place] Coronavirus (PCR) 03/22/21 03/22/21 03/22/21 09:38 11:15 16:01 WBC RBC Hgb Hct MCV MCHC RDW Plt Count Lymph % (Auto) [place] % (Auto) [place] # (Auto) Seg Neutrophils % Seg Neuts % (Manual) Lymphocytes % (Manual) Monocytes % (Manual) Nucleated RBC % Seg Neutrophils # Seg Neutrophils # Man Lymphocytes # (Manual) Monocytes # (Manual) PT INR D-Dimer ABG pH POC ABG pCO2 POC ABG pO2 ABG pO2 70.0 L ABG HCO3 30.0 H ABG O2 Saturation 94.6 L ABG Base Excess 3.6 H ABG Hemoglobin 13.5 L ABG Oxyhemoglobin ABG Sodium ABG Potassium ABG Glucose Oxyhemoglobin 92.5 L Sodium Potassium Chloride Carbon Dioxide BUN Creatinine Glucose POC Glucose 186 H 148 H Lactic Acid Phosphorus Magnesium Ferritin Lactate Dehydrogenase C-Reactive Protein NT-Pro-B Natriuret Pep Total Protein Albumin Triglycerides Arterial Blood Glucose Ur Specific [place] Coronavirus (PCR) 03/22/21 03/22/21 03/23/21 21:13 23:48 07:04 WBC 11.7 H RBC Hgb Hct MCV 95 H MCHC RDW 16.1 H Plt Count Lymph % (Auto) [place] % (Auto) [place] # (Auto) Seg Neutrophils % Seg Neuts % (Manual) Lymphocytes % (Manual) Monocytes % (Manual) Nucleated RBC % Seg Neutrophils # Seg Neutrophils # Man Lymphocytes # (Manual) Monocytes # (Manual) PT INR D-Dimer ABG pH POC ABG pCO2 POC ABG pO2 ABG pO2 ABG HCO3 ABG O2 Saturation ABG Base Excess ABG Hemoglobin ABG Oxyhemoglobin ABG Sodium ABG Potassium ABG Glucose Oxyhemoglobin Sodium Potassium Chloride Carbon Dioxide BUN Creatinine Glucose POC Glucose 121 H 114 H Lactic Acid Phosphorus Magnesium Ferritin Lactate Dehydrogenase C-Reactive Protein NT-Pro-B Natriuret Pep Total Protein Albumin Triglycerides Arterial Blood Glucose Ur Specific [place] Coronavirus (PCR) 03/23/21 03/23/21 03/23/21 07:04 08:35 11:19 WBC RBC Hgb Hct MCV MCHC RDW Plt Count Lymph % (Auto) [place] % (Auto) [place] # (Auto) Seg Neutrophils % Seg Neuts % (Manual) Lymphocytes % (Manual) Monocytes % (Manual) Nucleated RBC % Seg Neutrophils # Seg Neutrophils # Man Lymphocytes # (Manual) Monocytes # (Manual) PT INR D-Dimer ABG pH 7.345 L POC ABG pCO2 POC ABG pO2 ABG pO2 167.9 H ABG HCO3 32.2 H ABG O2 Saturation ABG Base Excess 4.8 H ABG Hemoglobin 13.4 L ABG Oxyhemoglobin ABG Sodium ABG Potassium ABG Glucose Oxyhemoglobin Sodium 148 H Potassium Chloride 111.3 H Carbon Dioxide 31 H BUN 31 H Creatinine Glucose 131 H POC Glucose 165 H Lactic Acid Phosphorus Magnesium 2.50 H Ferritin Lactate Dehydrogenase C-Reactive Protein NT-Pro-B Natriuret Pep Total Protein Albumin Triglycerides Arterial Blood Glucose Ur Specific [place] Coronavirus (PCR) 03/23/21 03/23/21 03/24/21 16:48 20:52 00:07 WBC RBC Hgb Hct MCV MCHC RDW Plt Count Lymph % (Auto) [place] % (Auto) [place] # (Auto) Seg Neutrophils % Seg Neuts % (Manual) Lymphocytes % (Manual) Monocytes % (Manual) Nucleated RBC % Seg Neutrophils # Seg Neutrophils # Man Lymphocytes # (Manual) Monocytes # (Manual) PT INR D-Dimer ABG pH POC ABG pCO2 POC ABG pO2 ABG pO2 ABG HCO3 ABG O2 Saturation ABG Base Excess ABG Hemoglobin ABG Oxyhemoglobin ABG Sodium ABG Potassium ABG Glucose Oxyhemoglobin Sodium Potassium Chloride Carbon Dioxide BUN Creatinine Glucose POC Glucose 160 H 127 H 147 H Lactic Acid Phosphorus Magnesium Ferritin Lactate Dehydrogenase C-Reactive Protein NT-Pro-B Natriuret Pep Total Protein Albumin Triglycerides Arterial Blood Glucose Ur Specific [place] Coronavirus (PCR) 03/24/21 03/24/21 03/24/21 04:34 04:34 05:20 WBC 13.3 H RBC Hgb Hct MCV MCHC 31 L RDW 16.1 H Plt Count Lymph % (Auto) [place] % (Auto) [place] # (Auto) Seg Neutrophils % Seg Neuts % (Manual) Lymphocytes % (Manual) Monocytes % (Manual) Nucleated RBC % Seg Neutrophils # Seg Neutrophils # Man Lymphocytes # (Manual) Monocytes # (Manual) PT INR D-Dimer ABG pH POC ABG pCO2 POC ABG pO2 ABG pO2 ABG HCO3 ABG O2 Saturation ABG Base Excess ABG Hemoglobin ABG Oxyhemoglobin ABG Sodium ABG Potassium ABG Glucose Oxyhemoglobin Sodium Potassium 5.2 H Chloride Carbon Dioxide BUN 28 H Creatinine 0.7 L Glucose 152 H POC Glucose 141 H Lactic Acid Phosphorus Magnesium Ferritin Lactate Dehydrogenase C-Reactive Protein NT-Pro-B Natriuret Pep Total Protein Albumin Triglycerides Arterial Blood Glucose Ur Specific [place] Coronavirus (PCR) 03/24/21 03/24/21 03/24/21 09:40 11:38 16:45 WBC RBC Hgb Hct MCV MCHC RDW Plt Count Lymph % (Auto) [place] % (Auto) [place] # (Auto) Seg Neutrophils % Seg Neuts % (Manual) Lymphocytes % (Manual) Monocytes % (Manual) Nucleated RBC % Seg Neutrophils # Seg Neutrophils # Man Lymphocytes # (Manual) Monocytes # (Manual) PT INR D-Dimer ABG pH POC ABG pCO2 POC ABG pO2 ABG pO2 ABG HCO3 ABG O2 Saturation ABG Base Excess ABG Hemoglobin ABG Oxyhemoglobin ABG Sodium ABG Potassium ABG Glucose Oxyhemoglobin Sodium Potassium Chloride Carbon Dioxide BUN Creatinine Glucose POC Glucose 126 H 136 H 118 H Lactic Acid Phosphorus Magnesium Ferritin Lactate Dehydrogenase C-Reactive Protein NT-Pro-B Natriuret Pep Total Protein Albumin Triglycerides Arterial Blood Glucose Ur Specific [place] Coronavirus (PCR) 03/24/21 03/24/21 03/25/21 21:03 23:49 04:32 WBC RBC Hgb Hct MCV MCHC RDW 16.1 H Plt Count 121 L Lymph % (Auto) [place] % (Auto) [place] # (Auto) Seg Neutrophils % Seg Neuts % (Manual) Lymphocytes % (Manual) Monocytes % (Manual) Nucleated RBC % Seg Neutrophils # Seg Neutrophils # Man Lymphocytes # (Manual) Monocytes # (Manual) PT INR D-Dimer ABG pH POC ABG pCO2 POC ABG pO2 ABG pO2 ABG HCO3 ABG O2 Saturation ABG Base Excess ABG Hemoglobin ABG Oxyhemoglobin ABG Sodium ABG Potassium ABG Glucose Oxyhemoglobin Sodium Potassium Chloride Carbon Dioxide BUN Creatinine Glucose POC Glucose 116 H 125 H Lactic Acid Phosphorus Magnesium Ferritin Lactate Dehydrogenase C-Reactive Protein NT-Pro-B Natriuret Pep Total Protein Albumin Triglycerides Arterial Blood Glucose Ur Specific [place] Coronavirus (PCR) 03/25/21 03/25/21 03/25/21 04:32 05:21 09:29 WBC RBC Hgb Hct MCV MCHC RDW Plt Count Lymph % (Auto) [place] % (Auto) [place] # (Auto) Seg Neutrophils % Seg Neuts % (Manual) Lymphocytes % (Manual) Monocytes % (Manual) Nucleated RBC % Seg Neutrophils # Seg Neutrophils # Man Lymphocytes # (Manual) Monocytes # (Manual) PT INR D-Dimer ABG pH POC ABG pCO2 POC ABG pO2 ABG pO2 ABG HCO3 ABG O2 Saturation ABG Base Excess ABG Hemoglobin ABG Oxyhemoglobin ABG Sodium ABG Potassium ABG Glucose Oxyhemoglobin Sodium 135 L D Potassium Chloride Carbon Dioxide BUN 25 H Creatinine 0.7 L Glucose 168 H POC Glucose 149 H 115 H Lactic Acid Phosphorus Magnesium Ferritin Lactate Dehydrogenase C-Reactive Protein NT-Pro-B Natriuret Pep Total Protein Albumin Triglycerides Arterial Blood Glucose Ur Specific [place] Coronavirus (PCR) 03/25/21 03/25/21 03/25/21 12:26 12:35 23:53 WBC RBC Hgb Hct MCV MCHC RDW Plt Count Lymph % (Auto) [place] % (Auto) [place] # (Auto) Seg Neutrophils % Seg Neuts % (Manual) Lymphocytes % (Manual) Monocytes % (Manual) Nucleated RBC % Seg Neutrophils # Seg Neutrophils # Man Lymphocytes # (Manual) Monocytes # (Manual) PT INR D-Dimer ABG pH POC ABG pCO2 POC ABG pO2 ABG pO2 100.5 H ABG HCO3 33.6 H ABG O2 Saturation ABG Base Excess 6.4 H ABG Hemoglobin 12.0 L ABG Oxyhemoglobin ABG Sodium ABG Potassium ABG Glucose Oxyhemoglobin Sodium Potassium Chloride Carbon Dioxide BUN Creatinine Glucose POC Glucose 108 H 137 H Lactic Acid Phosphorus Magnesium Ferritin Lactate Dehydrogenase C-Reactive Protein NT-Pro-B Natriuret Pep Total Protein Albumin Triglycerides Arterial Blood Glucose Ur Specific [place] Coronavirus (PCR) 03/26/21 03/26/21 03/26/21 05:14 07:09 07:09 WBC RBC Hgb Hct MCV MCHC RDW 16.5 H Plt Count 139 L Lymph % (Auto) [place] % (Auto) [place] # (Auto) Seg Neutrophils % Seg Neuts % (Manual) Lymphocytes % (Manual) Monocytes % (Manual) Nucleated RBC % Seg Neutrophils # Seg Neutrophils # Man Lymphocytes # (Manual) Monocytes # (Manual) PT INR D-Dimer ABG pH POC ABG pCO2 POC ABG pO2 ABG pO2 ABG HCO3 ABG O2 Saturation ABG Base Excess ABG Hemoglobin ABG Oxyhemoglobin ABG Sodium ABG Potassium ABG Glucose Oxyhemoglobin Sodium Potassium Chloride Carbon Dioxide BUN 22 H Creatinine 0.7 L Glucose 108 H POC Glucose 116 H Lactic Acid Phosphorus Magnesium Ferritin Lactate Dehydrogenase C-Reactive Protein NT-Pro-B Natriuret Pep Total Protein Albumin Triglycerides Arterial Blood Glucose Ur Specific [place] Coronavirus (PCR) 03/26/21 03/26/21 03/26/21 09:51 11:15 16:59 WBC RBC Hgb Hct MCV MCHC RDW Plt Count Lymph % (Auto) [place] % (Auto) [place] # (Auto) Seg Neutrophils % Seg Neuts % (Manual) Lymphocytes % (Manual) Monocytes % (Manual) Nucleated RBC % Seg Neutrophils # Seg Neutrophils # Man Lymphocytes # (Manual) Monocytes # (Manual) PT INR D-Dimer ABG pH POC ABG pCO2 POC ABG pO2 ABG pO2 ABG HCO3 ABG O2 Saturation ABG Base Excess ABG Hemoglobin ABG Oxyhemoglobin ABG Sodium ABG Potassium ABG Glucose Oxyhemoglobin Sodium Potassium Chloride Carbon Dioxide BUN Creatinine Glucose POC Glucose 107 H 119 H 174 H Lactic Acid Phosphorus Magnesium Ferritin Lactate Dehydrogenase C-Reactive Protein NT-Pro-B Natriuret Pep Total Protein Albumin Triglycerides Arterial Blood Glucose Ur Specific [place] Coronavirus (PCR) 03/26/21 03/27/21 03/27/21 22:18 07:08 10:28 WBC RBC Hgb Hct MCV 95 H MCHC RDW 16.2 H Plt Count 134 L Lymph % (Auto) [place] % (Auto) [place] # (Auto) Seg Neutrophils % Seg Neuts % (Manual) Lymphocytes % (Manual) Monocytes % (Manual) Nucleated RBC % Seg Neutrophils # Seg Neutrophils # Man Lymphocytes # (Manual) Monocytes # (Manual) PT INR D-Dimer ABG pH POC ABG pCO2 POC ABG pO2 ABG pO2 ABG HCO3 ABG O2 Saturation ABG Base Excess ABG Hemoglobin ABG Oxyhemoglobin ABG Sodium ABG Potassium ABG Glucose Oxyhemoglobin Sodium Potassium Chloride Carbon Dioxide BUN Creatinine Glucose POC Glucose 107 H 52 L Lactic Acid Phosphorus Magnesium Ferritin Lactate Dehydrogenase C-Reactive Protein NT-Pro-B Natriuret Pep Total Protein Albumin Triglycerides Arterial Blood Glucose Ur Specific [place] Coronavirus (PCR) 03/27/21 03/27/21 03/27/21 10:28 11:45 17:39 WBC RBC Hgb Hct MCV MCHC RDW Plt Count Lymph % (Auto) [place] % (Auto) [place] # (Auto) Seg Neutrophils % Seg Neuts % (Manual) Lymphocytes % (Manual) Monocytes % (Manual) Nucleated RBC % Seg Neutrophils # Seg Neutrophils # Man Lymphocytes # (Manual) Monocytes # (Manual) PT INR D-Dimer ABG pH POC ABG pCO2 POC ABG pO2 ABG pO2 ABG HCO3 ABG O2 Saturation ABG Base Excess ABG Hemoglobin ABG Oxyhemoglobin ABG Sodium ABG Potassium ABG Glucose Oxyhemoglobin Sodium 136 L Potassium Chloride Carbon Dioxide BUN Creatinine 0.7 L Glucose 150 H POC Glucose 121 H 165 H Lactic Acid Phosphorus Magnesium Ferritin Lactate Dehydrogenase C-Reactive Protein NT-Pro-B Natriuret Pep Total Protein Albumin Triglycerides Arterial Blood Glucose Ur Specific [place] Coronavirus (PCR) 03/28/21 03/28/21 03/28/21 07:14 11:42 18:22 WBC RBC Hgb Hct MCV MCHC RDW 16.4 H Plt Count Lymph % (Auto) [place] % (Auto) [place] # (Auto) Seg Neutrophils % Seg Neuts % (Manual) Lymphocytes % (Manual) Monocytes % (Manual) Nucleated RBC % Seg Neutrophils # Seg Neutrophils # Man Lymphocytes # (Manual) Monocytes # (Manual) PT INR D-Dimer ABG pH POC ABG pCO2 POC ABG pO2 ABG pO2 ABG HCO3 ABG O2 Saturation ABG Base Excess ABG Hemoglobin ABG Oxyhemoglobin ABG Sodium ABG Potassium ABG Glucose Oxyhemoglobin Sodium Potassium Chloride Carbon Dioxide BUN Creatinine Glucose POC Glucose 145 H 169 H Lactic Acid Phosphorus Magnesium Ferritin Lactate Dehydrogenase C-Reactive Protein NT-Pro-B Natriuret Pep Total Protein Albumin Triglycerides Arterial Blood Glucose Ur Specific [place] Coronavirus (PCR) 03/28/21 03/29/21 03/29/21 23:39 04:50 04:50 WBC RBC Hgb 11.0 L Hct 34.9 L MCV MCHC RDW 15.9 H Plt Count Lymph % (Auto) [place] % (Auto) [place] # (Auto) Seg Neutrophils % Seg Neuts % (Manual) Lymphocytes % (Manual) Monocytes % (Manual) Nucleated RBC % Seg Neutrophils # Seg Neutrophils # Man Lymphocytes # (Manual) Monocytes # (Manual) PT INR D-Dimer ABG pH POC ABG pCO2 POC ABG pO2 ABG pO2 ABG HCO3 ABG O2 Saturation ABG Base Excess ABG Hemoglobin ABG Oxyhemoglobin ABG Sodium ABG Potassium ABG Glucose Oxyhemoglobin Sodium Potassium Chloride Carbon Dioxide 34 H BUN Creatinine 0.6 L Glucose 152 H POC Glucose 139 H Lactic Acid Phosphorus Magnesium Ferritin Lactate Dehydrogenase C-Reactive Protein NT-Pro-B Natriuret Pep Total Protein Albumin Triglycerides Arterial Blood Glucose Ur Specific [place] Coronavirus (PCR) 03/29/21 05:25 WBC RBC Hgb Hct MCV MCHC RDW Plt Count Lymph % (Auto) [place] % (Auto) [place] # (Auto) Seg Neutrophils % Seg Neuts % (Manual) Lymphocytes % (Manual) Monocytes % (Manual) Nucleated RBC % Seg Neutrophils # Seg Neutrophils # Man Lymphocytes # (Manual) Monocytes # (Manual) PT INR D-Dimer ABG pH POC ABG pCO2 POC ABG pO2 ABG pO2 ABG HCO3 ABG O2 Saturation ABG Base Excess ABG Hemoglobin ABG Oxyhemoglobin ABG Sodium ABG Potassium ABG Glucose Oxyhemoglobin Sodium Potassium Chloride Carbon Dioxide BUN Creatinine Glucose POC Glucose 127 H Lactic Acid Phosphorus Magnesium Ferritin Lactate Dehydrogenase C-Reactive Protein NT-Pro-B Natriuret Pep Total Protein Albumin Triglycerides Arterial Blood Glucose Ur Specific [place] Coronavirus (PCR) Chest x-ray: pending Allied health notes reviewed: nursing
[2021-03-29] MEDS ORDERED: D5W/0.45% NACL 1,000 ML IV SCH (13:00)
[2021-03-29] MEDS ORDERED: ROCURONIUM 50 MG/5 ML INJ IV ONE (15:05)
[2021-03-29] MEDS ORDERED: MIDAZOLAM 2 MG/2 ML INJ ONE (15:05)
--- NOTE | 2021-03-29 15:09 | Anesthesia Consultation ---
Anesthesia Consult and Med Hx Date of service: 03/29/21 - Airway Intubation Access Assessment: Possibly Difficult (oETT in situ) - Pre-Operative Health Status ASA Pre-Surgery Classification: ASA4 Proposed Anesthetic Plan: General - Pulmonary Hx Respiratory Symptoms: Yes (vent dependent resp failure) Hx Pneumonia: Yes (COVID PNA) - Cardiovascular System Hx Hypertension: Yes - Central Nervous System CVA: No - Endocrine Hx Renal Disease: No Hx Liver Disease: No Hx Insulin Dependent Diabetes: Yes - Hematic Hx Anemia: Yes - Other Systems Hx Obesity: Yes (BMI 37) - Additional Comments Anesthesia Medical History Comments: FiO2 45%, Peep 6. Fentanyl gtt for sedation, no pressors.
[2021-03-29] MEDS ORDERED: LIDOCAINE 1%/EPINEPHRINE 1:100,000 VIAL (20 ML) INFILTRATI ONE ×2 (15:23)
[2021-03-29] MEDS ORDERED: fentaNYL 100 MCG/2 ML INJ ONE (15:30)
--- NOTE | 2021-03-29 15:32 | Anesthesia Day of Surgery ---
Anesthesia Day of Surgery - Day of Surgery Patient Examined: Yes Patient H&P Reviewed: Yes Patient is NPO: Yes
[2021-03-29] MEDS ORDERED: LIDOCAINE (1%) 10 MG/1 ML VIAL 20 ML MDV INFILTRATI ONE (15:38)
--- NOTE | 2021-03-29 15:56 | Operative Report ---
Operative Report Operative Report: Date of surgery: 03/29/21 Preoperative diagnosis: Vent dependence Postoperative diagnosis: Same as above Procedure: Percutaneous tracheostomy Surgeon: Edwin Olivier DO Anesthesia: Geta, local Findings: Good placement of tracheostomy as visualized by fiberoptic bronchoscopy EBL: 10cc Specimen: None Complications: None Disposition: Stable to ICU HPI and indication: Patient is a 61-year-old male who was admitted with COVID 19 and intubated. He has not been able to be safely weaned from the ventilator and a tracheostomy/PEG was requested by the trend investigator. All risk, benefits, alternatives to the procedure were discussed with the patient's and questions answered. Consent obtained. Procedure in detail: The patient was identified in the ICU and brought down to the operating room and positioned in supine position in the hospital bed. Consent was verified on the chart timeout was performed. The neck was prepped and draped in usual sterile fashion. Anesthesia was administered. A shoulder roll was placed, with the patient's neck mildly hyperextended.. Dr. Cespedes performed fiberoptic bronchoscopy throughout the entire procedure. The fiberoptic bronchoscope was inserted through the endotracheal tube via the adapter and the trachea examined. The trachea was unremarkable and the 7.5 ET tube was approximately 5-6 cm from lizzie at 22 cm at the lip. 1% lidocaine was infiltrated into the skin and subcutaneous tissue approximately 2 fingerbreadths above the sternal notch. A 3 cm incision was made in a horizontal fashion using a 15 blade. Using a hemostat the soft tissues were bluntly dissected until the trachea was encountered. The ET tube was then pulled back slowly to 17 cm. Using the introducer needle, the trachea was entered under direct visualization. The wire was passed down the trachea towards the lizzie. Introducer needle was then removed. The trachea was then serially dilated, after which a 8 Frisian Shiley tracheostomy tube was inserted. The balloon was inflated, patient placed back on ventilator. There was end-tidal CO2 detected and tidal volumes assessed which were satisfactory. The bronchoscope was then placed through the tracheostomy and showed good positioning of the tracheostomy approximately 3cm above the lizzie and no bleeding. The patient was then placed back on the ventilator. Surgicel was placed around the skin for further hemostasis. A drain sponge was placed between the skin and tracheostomy. The tracheostomy was secured to the patient's neck using a tracheostomy strap. A post op chest x-ray is pending. The patient tolerated the procedure well. All sharps were disposed of appropriately. The patient was taken back to the ICU in stable condition. The patient's family was updated.
--- NOTE | 2021-03-29 16:02 | Operative Report ---
Operative Report Operative Report: Date: 03/29/21 Surgeon: Wanda Cespedes MD Pre-op diagnosis: respiratory Post-op diagnosis: same as pre-op Procedure:Fiberoptic bronchoscopy Anesthesia:GETA Indication: Patient is a 61 year old male. Patient intubated and sedated therefore unable to provided detail history. The patient has been unable to be weaned from the ventilator and therefore tracheostomy with assistance of fiberoptic bronchoscopy is indicated along with PEG tube placement. All risks were discussed with the family, and consent obtained. Procedure in detail: The patient was identified in the hospital bed in the ICU and brought down to the OR. After anesthesia was induced, the fiberoptic bronchoscope was passed through the endotracheal tube using an adapter. The trachea and lizzie were visualized, there was a normal appearance of the mucosa and no debris or fluid was seen. At this point, Dr. Olivier who performed the t racheostomy portion of the procedure (please see separate operative note), asked for the endotracheal tube to be withdrawn slowly. The upper trachea was visualized and appeared normal. At this point, Dr. Olivier placed the tracheostomy tube under direct visualization by fiberoptic bronchoscopy. Please see separate operative note for more details on Tracheostomy placement. Once the tracheostomy tube was placed, the bronchoscope was withdrawn from the endotracheal tube and placed through the tracheostomy tube. The tracheostomy tube appeared to be in good position approximately 4 cm above the lizzie. The bronchoscope was then withdrawn. The procedure was terminated and the patient was returned to ICU in stable condition. Complication: none immediate
--- NOTE | 2021-03-29 16:03 | Operative Report ---
Operative Report Operative Report: Date: 03/29/21 Surgeon: Wanda Cespedes MD Co-Surgeon: Radha Olivier DO Pre-op Dx: respiratory failure Post-op Dx: same as pre-op Anesthesia: GETA Indiction: Pt is a 61 year old male who is an able to weaned from ventilator and also requiring terminal supervisor tube feeds. She is here today for PEG tube placement. Family signed informed consent. Details of procedure: A mouth guard was placed through which a flexible endoscope was passed through the mouth and into the esophagus. The NG tube was visualized along the way. The endoscope was advanced through the esophagus and into the stomach. The stomach was unremarkable. The stomach was insufflated and transillumination performed. An area of transillumination was visualized in the left upper quadrant and marked. Dr. Olivier performed the beside tube placement. The skin was then prepped and draped in usual sterile fashion. Local anesthetic was infiltrated to the skin at the intended incision site. A small incision was made in the skin using an 11 blade. An introducer needle/breakaway sheath was inserted directly through this incision into the stomach under direct endoscopic visualization. The needle was removed. The wire was passed and grasped with a snare by the physician assistant primary care and the wire pulled along with the endoscope through the mouth. The PEG tube was assembled onto the wire and pulled back through the mouth and down into the stomach. The outer bumper was at 4 cm at the skin. The PEG tube was cut to size and assembled in the usual fashion. A drain sponge was applied between the skin and the PEG tube and the tube secured with tape. I then reinserted the endoscope into the mouth and down into the stomach. The PEG tube inner bumper was seen to lay flush against the gastric mucosa without tension. There was no bleeding. The pylorus was entered and the first portion of the duodenum was unremarkable. The scope was then withdrawn back into the stomach and retroflexed. The entirety of the stomach was unremarkable. The NG tube was withdrawn. The stomach was then desufflated and the endoscope withdrawn. EBL: minimal Complications: none immediate
--- NOTE | 2021-03-29 16:30 | XRay Report ---
CHEST 1 VIEW 03/29/2021 4:07 PM INDICATION / CLINICAL INFORMATION: tracheostomy. COMPARISON: Chest x-ray on 03/18/2021 FINDINGS: SUPPORT DEVICES: Tracheostomy tube appears appropriately positioned. HEART / MEDIASTINUM: Stable cardiomegaly. LUNGS / PLEURA: Stable diffuse hazy bilateral opacities. No pneumothorax. ADDITIONAL FINDINGS: No significant additional findings. IMPRESSION: 1. Tracheostomy tube in expected position. Signer Name: Phani Lara MD Signed: 03/29/2021 4:25 PM Workstation Name: [id number]
--- NOTE | 2021-03-29 16:32 | Progress Note ---
Assessment and Plan Cultures: SARS CoV2 PCR: positive 03/08/2021 blood culture: no growth 03/10/2021 sputum culture: Usual respiratory marlyn 03/16/2021 blood culture: In process 03/18/2021 sputum culture: Stenotrophomonas A/P: 61-year-old male with diabetes, hypertension admitted to the hospital with complaints of shortness of breath and feeling weak for the last 1 week: #Sepsis secondary to bilateral pneumonia: secondary to COVID-19. Elevated inflammatory markers. WBC 22.6, creatinine 1.3, ferritin 877, CRP 18.0, LDH 624, procalcitonin 0.18. D-dimer >10k. CTA negative for pulmonary embolism, severe patchy groundglass opacities. #New fever: probably COVID related. #Acute hypoxic respiratory failure: initially required BiPAP, now intubated, on the vent. #DM #HTN Recs: -Completed Bactrim for Stenotrophomonas -completed IV remdesivir -s/p Actemra 03/10/2021 -prophylactic anticoagulation based on d-dimer per hospital protocol -s/p trach/PEG Nayan Goins MD [facility] O: [phone] F: [phone] Subjective Date of service: 03/29/21 Principal diagnosis: COVID-19 infection; DM II; Bilateral pneumonia; Obesity; HTN Interval history: Afebrile, remains tachycardic. White normal. Imaging personally reviewed: Chest x-ray: Trach in place, stable opacities. Objective - Exam Narrative Exam: Physical exam deferred to reduce risk of transmission of COVID-19. Please refer to primary team's note. - Constitutional Vitals: Vital Signs Temp Pulse Resp BP Pulse Ox 169 F H 109 H 19 160/79 97 03/29/21 13:51 03/29/21 12:30 03/29/21 12:30 03/29/21 12:30 03/29/21 12:30 Temperature -Last 24 Hours Temperature 169 F Temperature 99.8 F Temperature 98.8 F Temperature 97.8 F - Labs CBC & Chem 7: 03/29/21 04:50 03/29/21 04:50 Labs: Abnormal lab results 03/28/21 03/28/21 03/29/21 Range/Units 18:22 23:39 04:50 Hgb 11.0 L (11.8-15.2) gm/dl Hct 34.9 L (35.5-45.6) % RDW 15.9 H (13.2-15.2) % Carbon Dioxide (22-30) mmol/L Creatinine (0.8-1.3) mg/dL Glucose (75-100) mg/dL POC Glucose 169 H 139 H (70-105) mg/dL 03/29/21 03/29/21 03/29/21 Range/Units 04:50 05:25 11:34 Hgb (11.8-15.2) gm/dl Hct (35.5-45.6) % RDW (13.2-15.2) % Carbon Dioxide 34 H (22-30) mmol/L Creatinine 0.6 L (0.8-1.3) mg/dL Glucose 152 H (75-100) mg/dL POC Glucose 127 H 169 H (70-105) mg/dL
--- NOTE | 2021-03-29 16:50 | Post Anesthesia Evaluation ---
- Post Anesthesia Evaluation Patient Participated: No (intubated, sedated) Airway Patent: Yes Stable Respiratory Function: Yes Nausea/Vomiting: No (unable to assess for nausea) Temp > 96.8F: Yes Pain Manageable: Yes (unable to assess; analgesic given) Adequeate Hydration: Yes Anesthesia Complications: No Patient on Ventilator: Yes
--- NOTE | 2021-03-29 17:45 | Progress Note ---
<DEBBY ELLISON - Last Filed: 03/29/21 17:45> Assessment and Plan Assessment and plan: This is a 61-year-old male with past medical history of HTN and DM admitted for sepsis and acute hypoxic respiratory failure 2/2 COVID pneumonia requiring ventilatory support. Hospital Course to Date: 03/09: The patient was seen and evaluated today, and he was found to be hemodynamically stable. The patient is currently on BiPAP for possible COVID-19 pneumonia. He was started on Lovenox 1mg/kg for DVT ppx in the setting of d- dimer > 10,000. Infectious Disease was consulted. The patient is pending a TTE. 03/10: No acute events overnight, patient was intubated in the afternoon transferred to ICU 03/11: Patient started on Lantus, free water flushes increased, propofol drip resumed and oral antihypertensive added. 03/12: lantus increased, k at 5, will monitor. I updated his family and his stated that he is not vaccinated. He does have HTN and she will call the RN to update home medications. She did say he takes bystolic and amlopine. She inquired about ventilator and lab work. She had no further questions. 03/13: KVNG overnight. Patient remains hyperglycemic, basal insulin adjusted and increased to Q12hrs. Patient is overall net positive since admit X1 dose of IV lasix, repeat BMP this afternoon. 03/14: Failed SAT this am due to increase agitation, tachycardia and hypertension. Remains on propofol and fentanyl gtt. Hyperkalemia treated with PO kayaxalate. Patient responded to IV lasix yesterday additional dose again today for a net negative balance. Repeat BMP this afternoon. Insulin adjusted for hyperglycemia. 03/15: Remains encephalopathic, not following commansd. Orders placed for CT head/Brain and Neuro consulted. Rectal bleeding subsided, most likely due to hemorrhoids. H&H is stable will continue to monitor. Kayaxexalate for high K, repeat labs 4 to 6hrs post treatment. 03/16: Still agiated this am, CT head with no acute Abn. CXR and ABG noted- evolving pna and worsening hypoxia, now with low grade fevers. Sputum culture ordered, IV Abx added, ID on cosult. 03/17: This am ABG noted, hypoxia improved. Continue to wean FiO2 as tolerated. Still with low grade fevers, on IV Abx per ID. Still with periods of confusion despite sedation, seroquel increased. F/u CXR in the am 03/18: still very agitated especially when off sedation, with hypertension and tachycardia. Continue sedation for RASS -2, PRN antihypertensive for SPB greater than 160. This febrile this am, continue current IV abx per ID 03/19: Patient afebrile overnight, continue IV Abx per ID. ABG also improved this am, continue to wean FIO2 as tolerated. PRN antihypertensive for hypertension. 03/20: Hyperkalemia treated with Kayexalate, Good discontinued, vancomycin and cefepime stopped started Bactrim by ID. Steroid taper started. 03/21: BB started for hypertension, Seroquel increased for agitation and Librium started no acute events reported overnight. [facility] made vent changes 03/22: Adjustment to anxiolytics, respiratory rate on ventilator per [facility]. Patient noted to have bleeding hemorrhoids with clot, requested RN to remove bowel management system and will order Preparation H. 03/23: Given no confirmed DVT or PE (only superficial thrombus noted on Dopplers) therapeutic Lovenox changed to prophylactic Lovenox. Started on doxazosin to help with retention. Consulted surgery for tracheostomy and propofol discontinued. 03/24: Surgery consult completed, patient changed to prophylaxis anticoagulation, started on doxazosin yesterday with plans to remove Good catheter in 48 hours. Patient with slight hypokalemia today and given Kayexalate. No acute events reported overnight. 03/25: No acute events reported overnight. Patient remains on fentanyl drip and on CPAP trial this morning. 03/26: no acute events reported overnight. placed on CPAP this AM, remains on fent/librium. scheduled for trach/peg this week. 03/27: Hypoglycemic this am, will decreased lantus to Qhs. Plan for possible Trach and Peg by Gen Surg this am. Case management to arrange possible LTAC placement 03/28: KVNG overnight. Tolerating PST this am. Plan for trach and PEG tomorrow by Gen. Surgery, NPO after midnight. 03/29: No significant changes overnight. Plan for trach and Peg today. Case management to arrange possible LTAC placement Assessment and Plan #Acute Hypoxic Respiratory Failure #COVID Pneumonia - Intubated on 03/10 due to worsen hypoxia on BIPAP - COVID swab positive - CXR showed bilateral patchy infiltrates - CT chest shows severe patchy multifocal groundglass airspace disease - Vent setting:PRVC-45%,6,12,450 - AM ABG pending - CCM consulted, appreciate recommendations - Continue IV Steroids and Nebs per [facility] - keep patient net negative for better lung compliance - VAP bundle addressed - Aspiration precaution HOB above 30 - Daily SBT and SAT trials as tolerated - Daily ABG and CXR - Continue SPO2 monitoring for SPO2 goal above 92% - Plan for possible Trach/PEG by gen. Surgery #Sepsis #COVID Pneumonia #Leukocytosis #Lactic Acidosis- Resolved - COVID PCR positive - UA neg, Blood cultures and Sputum culture NGTD - repeat Bculture NGTD, 03/17 Sputum Cult + Stenotrophomonas - Infectious disease consulted, appreciate recommendation - S/p Actemra 03/10/2021 - Completed X5days course of IV remdesivir - Now on bactrim until 03/27 - Monitor WBC and temperature curve - Trend CBC #Neuro:Acute Encephalopathy - Intubated and sedated on fentanyl RASS -2 - CT head/brain no acute Abn. - On Seroquel and Librium - Avoid benzodiazepine to reduce the possibility of delirium - Prn analgesia for CPOT greater than 3 - Maintenance of sleep-wake cycle - Neurology on consult #CV: Hypertension - BP stable this am - 03/09 Echocardiogram shows a mildly dilated ascending aorta, normal LV systolic function, mild concentric LVH, LVEF 60 to 65% - Continue PO Hydralazine - PRN Antihypertensive for SBP above 160 - Continue Blood pressure monitoring per protocol #Hyponatremia - Low Na this am - FWF decreased - Strict intake and output - Avoid nephrotoxic medications; Renally dose medications - Good in place - Monitor and replace electrolytes as needed -Trend BMP #Elevated D-dimer - Most likely due to COVID - Bilateral lower extremity ultrasounds negative for DVT, superficial thrombus in left gastrocnemius vein - CTA chest shows no gross pulm embolism - H&H stable - Continue AC- Lovenox SubQ - SCDs to BLE while in bed - Transfuse hemoglobin less than 7 - Monitor for signs of bleeding #Endo:Type 2 DM - Hypoglycemic this am - Continue high dose SSI Q6hrs - Lantus decreased to qHs - Avoid Hypoglycemia The high probability of a clinically significant, sudden or life threatening deterioration of the [Respiratory] system(s) required my full and direct attention, intervention and personal management. The aggregate critical care time was [60] minutes. This time is in addition to time spent performing reported procedures but includes the following: [x] Data Review and interpretation [x] Patient assessment and monitoring of vital signs [x] Documentation [x] Medication orders and management Disposition Plan: ICU Total Time Spent with Patient (Minutes): 60 History Interval history: Patient seen and examined at the bedside. Remains intubated and on sedation, RASS 0 to -1. Open eyes spontaneously, per RN follow simple commands at times. KVNG overnight Hospitalist Physical - Constitutional Vitals: Temp Pulse Resp BP Pulse Ox 169 F H 114 H 33 H 207/111 94 03/29/21 13:51 03/29/21 16:30 03/29/21 16:30 03/29/21 16:30 03/29/21 16:30 General appearance: Present: no acute distress, well-nourished, obese, other (Intubated and sedated) - EENT Eyes: Present: PERRL - Neck Neck: Present: normal ROM - Respiratory Respiratory effort: normal Respiratory: bilateral: rhonchi - Cardiovascular Rhythm: regular Heart Sounds: Present: S1 & S2 - Extremities Extremities: no ischemia, pulses intact, pulses symmetrical Extremity abnormal: edema - Peripheral Assessment Generalized Edema Type: Pitting Edema Degree: 2+ Capillary Refill: < 3 seconds Skin Temperature: Warm Peripheral Pulses: within normal limits - Abdominal General gastrointestinal: soft, non-distended, normal bowel sounds - Integumentary Integumentary: Present: warm, dry - Psychiatric Psychiatric: other (Intubated and sedated) - Neurologic Neurologic: other (Intubated and sedated) - Allied Health Allied health notes reviewed: nursing Results - Labs CBC & Chem 7: 03/29/21 04:50 03/29/21 04:50 Labs: Laboratory Last Values WBC 6.1 K/mm3 (4.5-11.0) 03/29/21 04:50 RBC 3.73 M/mm3 (3.65-5.03) 03/29/21 04:50 Hgb 11.0 gm/dl (11.8-15.2) L 03/29/21 04:50 Hct 34.9 % (35.5-45.6) L 03/29/21 04:50 MCV 94 fl (84-94) 03/29/21 04:50 MCH 30 pg (28-32) 03/29/21 04:50 MCHC 32 % (32-34) 03/29/21 04:50 RDW 15.9 % (13.2-15.2) H 03/29/21 04:50 Plt Count 153 K/mm3 (140-440) 03/29/21 04:50 Lymph % (Auto) 12.6 % (13.4-35.0) L 03/17/21 04:40 [place] % (Auto) 11.3 % (0.0-7.3) H 03/17/21 04:40 Eos % (Auto) 0.4 % (0.0-4.3) 03/17/21 04:40 Baso % (Auto) 0.8 % (0.0-1.8) 03/17/21 04:40 Lymph # (Auto) 1.8 K/mm3 (1.2-5.4) 03/17/21 04:40 [place] # (Auto) 1.6 K/mm3 (0.0-0.8) H 03/17/21 04:40 Eos # (Auto) 0.1 K/mm3 (0.0-0.4) 03/17/21 04:40 Baso # (Auto) 0.1 K/mm3 (0.0-0.1) 03/17/21 04:40 Add Manual Diff Complete 03/10/21 04:29 Total Counted 100 03/10/21 04:29 Seg Neutrophils % 74.9 % (40.0-70.0) H 03/17/21 04:40 Seg Neuts % (Manual) 94.0 % (40.0-70.0) H 03/10/21 04:29 Band Neutrophils % 0 % 03/10/21 04:29 Lymphocytes % (Manual) 1.0 % (13.4-35.0) L 03/10/21 04:29 Reactive Lymphs % (Man) 0 % 03/10/21 04:29 Monocytes % (Manual) 5.0 % (0.0-7.3) 03/10/21 04:29 Eosinophils % (Manual) 0 % (0.0-4.3) 03/10/21 04:29 Basophils % (Manual) 0 % (0.0-1.8) 03/10/21 04:29 Metamyelocytes % 0 % 03/10/21 04:29 Myelocytes % 0 % 03/10/21 04:29 Promyelocytes % 0 % 03/10/21 04:29 Blast Cells % 0 % 03/10/21 04:29 Nucleated RBC % 3.0 % (0.0-0.9) H 03/10/21 04:29 Seg Neutrophils # 10.5 K/mm3 (1.8-7.7) H 03/17/21 04:40 Seg Neutrophils # Man 19.4 K/mm3 (1.8-7.7) H 03/10/21 04:29 Band Neutrophils # 0.0 K/mm3 03/10/21 04:29 Lymphocytes # (Manual) 0.2 K/mm3 (1.2-5.4) L 03/10/21 04:29 Abs React Lymphs (Man) 0.0 K/mm3 03/10/21 04:29 Monocytes # (Manual) 1.0 K/mm3 (0.0-0.8) H 03/10/21 04:29 Eosinophils # (Manual) 0.0 K/mm3 (0.0-0.4) 03/10/21 04:29 Basophils # (Manual) 0.0 K/mm3 (0.0-0.1) 03/10/21 04:29 Metamyelocytes # 0.0 K/mm3 03/10/21 04:29 Myelocytes # 0.0 K/mm3 03/10/21 04:29 Promyelocytes # 0.0 K/mm3 03/10/21 04:29 Blast Cells # 0.0 K/mm3 03/10/21 04:29 WBC Morphology Not Reportable 03/10/21 04:29 Hypersegmented Neuts Not Reportable 03/10/21 04:29 Hyposegmented Neuts Not Reportable 03/10/21 04:29 Hypogranular Neuts Not Reportable 03/10/21 04:29 Smudge Cells Not Reportable 03/10/21 04:29 Toxic Granulation Not Reportable 03/10/21 04:29 Toxic Vacuolation Not Reportable 03/10/21 04:29 Dohle Bodies Not Reportable 03/10/21 04:29 Pelger-Huet Anomaly Not Reportable 03/10/21 04:29 Mely Rods Not Reportable 03/10/21 04:29 Platelet Estimate Consistent w auto 03/10/21 04:29 Clumped Platelets Not Reportable 03/10/21 04:29 Plt Clumps, EDTA Not Reportable 03/10/21 04:29 Large Platelets Not Reportable 03/10/21 04:29 Giant Platelets Not Reportable 03/10/21 04:29 Platelet Satelliting Not Reportable 03/10/21 04:29 Plt Morphology Comment Not Reportable 03/10/21 04:29 RBC Morphology Normal 03/10/21 04:29 Dimorphic RBCs Not Reportable 03/10/21 04:29 Polychromasia Not Reportable 03/10/21 04:29 Hypochromasia Not Reportable 03/10/21 04:29 Poikilocytosis Not Reportable 03/10/21 04:29 Anisocytosis Not Reportable 03/10/21 04:29 Microcytosis Not Reportable 03/10/21 04:29 Macrocytosis Not Reportable 03/10/21 04:29 Spherocytes Not Reportable 03/10/21 04:29 Pappenheimer Bodies Not Reportable 03/10/21 04:29 Sickle Cells Not Reportable 03/10/21 04:29 Target Cells Not Reportable 03/10/21 04:29 Tear Drop Cells Not Reportable 03/10/21 04:29 Ovalocytes Not Reportable 03/10/21 04:29 Helmet Cells Not Reportable 03/10/21 04:29 [place] Bodies Not Reportable 03/10/21 04:29 [place] Rings Not Reportable 03/10/21 04:29 [place] Cells Not Reportable 03/10/21 04:29 Bite Cells Not Reportable 03/10/21 04:29 Crenated Cell Not Reportable 03/10/21 04:29 Elliptocytes Not Reportable 03/10/21 04:29 Acanthocytes (Spur) Not Reportable 03/10/21 04:29 Rouleaux Not Reportable 03/10/21 04:29 Hemoglobin C Crystals Not Reportable 03/10/21 04:29 Schistocytes Not Reportable 03/10/21 04:29 Malaria parasites Not Reportable 03/10/21 04:29 Shaheen Bodies Not Reportable 03/10/21 04:29 Hem Pathologist Commnt No 03/10/21 04:29 PT 13.0 Sec. (12.2-14.9) 03/29/21 04:50 INR 0.88 (0.87-1.13) 03/29/21 04:50 APTT 28.0 Sec. (24.2-36.6) 03/08/21 20:24 D-Dimer 1359.12 ng/mlDDU (0-234) H 03/17/21 04:40 ABG pH 7.353 pH Units (7.350-7.450) 03/25/21 12:35 POC ABG pCO2 71.9 mmHg (32.0-48.0) H 03/12/21 21:54 ABG pCO2 61.9 mm Hg 03/25/21 12:35 POC ABG pO2 53.6 mmHg (83-108) L 03/12/21 21:54 ABG pO2 100.5 mm Hg (80.0-90.0) H 03/25/21 12:35 POC ABG HCO3 30.0 03/12/21 21:54 ABG HCO3 33.6 mmol/L (20.0-26.0) H 03/25/21 12:35 ABG O2 Saturation 97.3 % (95.0-99.0) 03/25/21 12:35 ABG O2 Content 16.2 (0.0-44) 03/25/21 12:35 POC ABG Base Excess 0.5 03/12/21 21:54 ABG Base Excess 6.4 mmol/L (-2.0-3.0) H 03/25/21 12:35 ABG Hemoglobin 12.0 gm/dl (14.0-18.0) L 03/25/21 12:35 ABG Oxyhemoglobin 84.8 (94-98) L 03/12/21 21:54 ABG Carboxyhemoglobin 1.5 % (0.0-5.0) 03/25/21 12:35 ABG Methemoglobin 0.7 % (0.0-1.5) 03/25/21 12:35 ABG Sodium 134.2 mmol/L (136.0-145.0) L 03/12/21 21:54 ABG Potassium 4.9 mmol/L (3.40-4.50) H 03/12/21 21:54 ABG Chloride 99.0 mmol/L (98-107) 03/12/21 21:54 ABG Glucose 306 mg/dL (65-95) H 03/12/21 21:54 Oxyhemoglobin 95.2 % (95.0-99.0) 03/25/21 12:35 Carboxyhemoglobin 0.6 (0.5-1.5) 03/12/21 21:54 FiO2 50 % 03/25/21 12:35 FiO2 % 50.0 03/12/21 21:54 Sodium 141 mmol/L (137-145) 03/29/21 04:50 Potassium 4.2 mmol/L (3.6-5.0) 03/29/21 04:50 Chloride 102.2 mmol/L (98-107) 03/29/21 04:50 Carbon Dioxide 34 mmol/L (22-30) H 03/29/21 04:50 Anion Gap 9 mmol/L 03/29/21 04:50 BUN 15 mg/dL (9-20) 03/29/21 04:50 Creatinine 0.6 mg/dL (0.8-1.3) L 03/29/21 04:50 Estimated GFR > 60 ml/min 03/29/21 04:50 BUN/Creatinine Ratio 25 % 03/29/21 04:50 Glucose 152 mg/dL (75-100) H 03/29/21 04:50 POC Glucose 169 mg/dL (70-105) H 03/29/21 11:34 Lactic Acid 1.90 mmol/L (0.7-2.0) 03/08/21 23:51 Calcium 8.4 mg/dL (8.4-10.2) 03/29/21 04:50 Phosphorus TNR 03/28/21 07:14 Magnesium TNR 03/28/21 07:14 Ferritin 976.4 ng/mL (30.0-300.0) H 03/15/21 04:00 Total Bilirubin 0.20 mg/dL (0.1-1.2) 03/12/21 08:03 AST 10 units/L (5-40) 03/12/21 08:03 ALT 16 units/L (7-56) 03/12/21 08:03 Alkaline Phosphatase 77 units/L (35-129) 03/12/21 08:03 Lactate Dehydrogenase 630 units/L (91-180) H 03/15/21 06:06 C-Reactive Protein 0.40 mg/dL (0.00-1.30) 03/17/21 04:40 NT-Pro-B Natriuret Pep 1053 pg/mL (0-900) H 03/08/21 20:24 Total Protein 6.0 g/dL (6.3-8.2) L 03/12/21 08:03 Albumin 2.9 g/dL (3.9-5) L 03/12/21 08:03 Albumin/Globulin Ratio 0.9 % 03/12/21 08:03 Triglycerides 305 mg/dL (2-149) H 03/22/21 07:26 Procalcitonin 0.05 ng/mL (<0.15) 03/17/21 04:40 Arterial Blood Glucose 306 mg/dL (65-95) H 03/12/21 21:54 Arterial Blood Ionized Calcium 5.0 mg/dL (4.6-5.3) 03/12/21 21:54 Urine Color Yellow (Yellow) 03/09/21 04:10 Urine Turbidity Slightly-cloudy (Clear) 03/09/21 04:10 Urine pH 5.0 (5.0-7.0) 03/09/21 04:10 Ur Specific [place] 1.041 (1.003-1.030) H 03/09/21 04:10 Urine Protein 100 mg/dl mg/dL (Negative) 03/09/21 04:10 Urine Glucose (UA) Neg mg/dL (Negative) 03/09/21 04:10 Urine Ketones Neg mg/dL (Negative) 03/09/21 04:10 Urine Blood Mod (Negative) 03/09/21 04:10 Urine Nitrite Neg (Negative) 03/09/21 04:10 Urine Bilirubin Neg (Negative) 03/09/21 04:10 Urine Urobilinogen 2.0 mg/dL (<2.0) 03/09/21 04:10 Ur Leukocyte Esterase Neg (Negative) 03/09/21 04:10 Urine WBC (Auto) 4.0 /HPF (0.0-6.0) 03/09/21 04:10 Urine RBC (Auto) 1.0 /HPF (0.0-6.0) 03/09/21 04:10 Urine Bacteria (Auto) 1+ /HPF (Negative) 03/09/21 04:10 Urine Mucus Few /HPF 03/09/21 04:10 Coronavirus (PCR) Positive (Negative) A 03/09/21 08:00 Miscellaneous Test Flexitest 1 03/16/21 13:14 Good/IV: Voiding Method Indwelling Catheter Active Medications - Current Medications Current Medications: Generic Name Dose Route Start Last Admin Trade Name Freq PRN Reason Stop Dose Admin Acetaminophen 650 mg 03/09/21 01:26 03/28/21 05:15 Acetaminophen 325 Mg Tab PO 650 mg Q4H PRN Administration Pain MILD(1-3)/Fever >100.5/RAYO Albuterol 2.5 mg 03/09/21 01:26 03/18/21 21:06 Albuterol 2.5 Mg/3 Ml Nebu IH 2.5 mg Q4HRT PRN Administration Shortness Of Breath Arformoterol Tartrate 15 mcg 03/11/21 20:00 03/29/21 07:53 Arformoterol 15 Mcg/2 Ml Nebu IH Not Given Q12HRT [facility] Ascorbic Acid 500 mg 03/10/21 14:00 03/28/21 21:52 Ascorbic Acid 500 Mg Tab PO 500 mg BID [facility]ANCA Administration Bisacodyl 10 mg 03/26/21 13:43 03/26/21 13:51 Bisacodyl 10 Mg Rect Supp [place] 10 mg QDAY PRN Administration Constipation Budesonide 0.25 mg 03/11/21 20:00 03/29/21 07:54 Budesonide 0.25 Mg/2 Ml Nebu IH Not Given Q12HRT [facility] Chlordiazepoxide HCl 75 mg 03/22/21 18:00 03/29/21 05:05 Chlordiazepoxide 25 Mg Cap PO 75 mg Q6HR [facility] Administration Dextrose 0 ml 03/20/21 10:52 Dextrose 10% *Hypoglycemia IV PRN PRN Hypoglycemia Doxazosin Mesylate 1 mg 03/23/21 14:00 03/28/21 09:58 Doxazosin 1 Mg Tab PO 1 mg QDAY [facility] Administration Enoxaparin Sodium 60 mg 03/29/21 22:00 Enoxaparin 60 Mg/0.6 Ml Inj SUB-Q Q12HR [facility] Famotidine 20 mg 03/12/21 22:00 03/28/21 21:51 Famotidine 20 Mg Tab FEEDTUBE 20 mg BID [facility] Administration Hydralazine HCl 50 mg 03/23/21 14:26 03/29/21 05:04 Hydralazine 25 Mg Tab PO 50 mg Q8HR [facility] Administration Hydrophilic Ointment 1 applic 03/10/21 15:39 Lip Therapy Vaseline TP Q2HR PRN Dry Lips Fentanyl Citrate 2,000 mcg in 100 mls @ 5.897 mls/hr 03/10/21 17:00 03/29/21 17:10 Fentanyl Drip Premix IV 2 mcg/kg/hr TITR [facility] 11.793 mls/hr Administration Protocol 1 MCG/KG/HR Propofol 1,000 mg in 100 mls @ 3.507 mls/hr 03/11/21 17:00 03/22/21 18:02 Diprivan 10 Mg/Ml IV 0 mcg/kg/min TITR [facility] 0 mls/hr Titration Protocol 5 MCG/KG/MIN Dextrose/Sodium Chloride 1,000 mls @ 75 mls/hr 03/29/21 13:00 D5/0.45ns IV 03/31/21 02:19 DIRECT [facility] Insulin Glargine 15 units 03/29/21 22:00 Insulin Glargine 100 Units/Ml SUB-Q QHS [facility] Insulin Human Lispro 0 unit 03/11/21 18:00 03/29/21 12:20 Insulin Lispro 100 Unit/Ml SUB-Q Not Given Q6HR [facility] Protocol Labetalol HCl 10 mg 03/12/21 21:13 03/21/21 16:54 Labetalol 20 Mg/4 Ml Inj IV 10 mg Q6H PRN Administration Blood Pressure Metoclopramide HCl 5 mg 03/29/21 22:00 Metoclopramide 10 Mg/2 Ml Inj IV 03/31/21 21:59 Q8HR [facility] Metoprolol Tartrate 12.5 mg 03/21/21 22:00 03/28/21 21:51 Metoprolol Tartrate 25 Mg Tab PO 12.5 mg BID [facility] Administration Midazolam HCl 2 mg 03/15/21 08:49 03/23/21 07:58 Midazolam 2 Mg/2 Ml Inj IV 2 mg Q2H PRN Administration VENT SYNCHRONY Multi-Ingred Cream/Lotion/Oil/Oint 1 applic 03/10/21 15:39 Mineral Oil/Petrolatum, White Ophth Oint 3.5 Gm OU Q4HR PRN Dry Eye(s) Ondansetron HCl 4 mg 03/09/21 01:26 Ondansetron 4 Mg/2 Ml Inj IV Q8H PRN Nausea And Vomiting Phenyleph/Shark Oil/Min Oil/Petrol 1 applic 03/22/21 17:35 03/29/21 03:59 Pe/Mo/Pet,Wh 10 Applic/28 Gm Tube [place] 1 applic Q6HR PRN Administration Hemorrhoids Prednisone 10 mg 03/29/21 10:00 Prednisone 10 Mg Tab PO DAILY [facility] Quetiapine Fumarate 300 mg 03/21/21 22:00 03/28/21 21:52 Quetiapine 100 Mg Tab PO 300 mg BID [facility] Administration Senna/Docusate Sodium 1 tab 03/10/21 22:00 03/28/21 21:52 Sennosides/Docusate Sodium 8.6/50 Mg Tab FEEDTUBE 1 tab BID [facility] Administration Sodium Chloride 10 ml 03/09/21 10:00 03/28/21 21:52 Sodium Chloride 0.9% 10 Ml Flush Syringe IV 10 ml BID [facility] Administration Sodium Chloride 10 ml 03/09/21 01:26 Sodium Chloride 0.9% 10 Ml Flush Syringe IV PRN PRN LINE FLUSH Sodium Chloride 10 ml 03/20/21 09:48 Sodium Chloride 0.9% 50 Ml Ivpb IV PRN PRN FLUSH Zinc Sulfate 220 mg 03/10/21 14:00 03/28/21 21:52 Zinc Sulfate 220 Mg Cap PO 220 mg BID [facility] Administration Nutrition/Malnutrition Assess - Dietary Evaluation Nutrition/Malnutrition Findings: Nutrition Notes Start: 03/09/21 08:49 Freq: Status: Active Protocol: Document 03/27/21 14:48 BRIAN (Rec: 03/27/21 15:01 BRIAN [id number]) Nutrition Notes Initial or Follow up Reassessment Current Diagnosis Diabetes,Sepsis,Hypertension, Respiratory Failure Other Pertinent Diagnosis COVID-19, Bilateral Pneumonia. Current Diet TF-Glucerna 1.2 at 40 ml/hr Labs/Tests BG 150 Na 136 (Na lab been <145 since 03/24) Pertinent Medications Solumedrol Height 5 ft 11 in Weight 122 kg [place] Body Weight (kg) 78.18 BMI 37.5 Weight Status Obese Subjective/Other Information Pt remains on vent support, but no longer receives propofol. RN informed of intent to increase TF goal rate. Percent of energy/protein needs met: 47% energy 45% pro Burn Absent Trauma Absent #1 Nutrition Diagnosis Inadequate oral intake Diagnosis Progress(for reassessment Continues documentation) Is patient on ventilator? Yes Is Patient Ambulatory and/or Out of Bed No REE-([place]or-confined to bed) 2449.140 Calculation Used for Recommendations 70-80% energy needs Additional Notes Energy needs: 6200-7655 kcal/ day Pro needs 1.3g/kg adjBW: 130g/ day Fluid needs 1ml/kcal Nutrition Intervention Nutrition Support: Increase TF goal rate to 70ml/ hr with 110ml water flush q4h. Kcal 2,016 Protein (gm) 101 Carbohydrates (gm) 192 Fat (gm) 101 Fluid (mL) 1,352 Fiber (gm) 27 Goal #1 TF tolerance Goal #2 TF to meet at least 75% energy and pro needs Follow-Up By: 03/31/21 Additional Comments F/U: TF goal rate increase/ tolerance, vent status, Na lab /water flush <ARABELLA CASTILLO - Last Filed: 03/30/21 07:25> Assessment and Plan Assessment and plan: I saw and evaluated the patient. I agree with the findings and the plan of care as documented in the Nurse Practitioner's~note, with the following corrections and additions. Hospitalist Physical - Constitutional Vitals: Temp Pulse Resp BP Pulse Ox 99.6 F 110 H 35 H 143/80 98 03/30/21 07:15 03/30/21 07:15 03/30/21 06:16 03/30/21 07:15 03/30/21 07:15 Results - Labs CBC & Chem 7: 03/30/21 05:36 03/30/21 05:36 Labs: Laboratory Last Values WBC 9.6 K/mm3 (4.5-11.0) 03/30/21 05:36 RBC 4.11 M/mm3 (3.65-5.03) 03/30/21 05:36 Hgb 12.2 gm/dl (11.8-15.2) 03/30/21 05:36 Hct 38.6 % (35.5-45.6) 03/30/21 05:36 MCV 94 fl (84-94) 03/30/21 05:36 MCH 30 pg (28-32) 03/30/21 05:36 MCHC 32 % (32-34) 03/30/21 05:36 RDW 16.7 % (13.2-15.2) H 03/30/21 05:36 Plt Count 183 K/mm3 (140-440) 03/30/21 05:36 Lymph % (Auto) 12.6 % (13.4-35.0) L 03/17/21 04:40 [place] % (Auto) 11.3 % (0.0-7.3) H 03/17/21 04:40 Eos % (Auto) 0.4 % (0.0-4.3) 03/17/21 04:40 Baso % (Auto) 0.8 % (0.0-1.8) 03/17/21 04:40 Lymph # (Auto) 1.8 K/mm3 (1.2-5.4) 03/17/21 04:40 [place] # (Auto) 1.6 K/mm3 (0.0-0.8) H 03/17/21 04:40 Eos # (Auto) 0.1 K/mm3 (0.0-0.4) 03/17/21 04:40 Baso # (Auto) 0.1 K/mm3 (0.0-0.1) 03/17/21 04:40 Add Manual Diff Complete 03/10/21 04:29 Total Counted 100 03/10/21 04:29 Seg Neutrophils % 74.9 % (40.0-70.0) H 03/17/21 04:40 Seg Neuts % (Manual) 94.0 % (40.0-70.0) H 03/10/21 04:29 Band Neutrophils % 0 % 03/10/21 04:29 Lymphocytes % (Manual) 1.0 % (13.4-35.0) L 03/10/21 04:29 Reactive Lymphs % (Man) 0 % 03/10/21 04:29 Monocytes % (Manual) 5.0 % (0.0-7.3) 03/10/21 04:29 Eosinophils % (Manual) 0 % (0.0-4.3) 03/10/21 04:29 Basophils % (Manual) 0 % (0.0-1.8) 03/10/21 04:29 Metamyelocytes % 0 % 03/10/21 04:29 Myelocytes % 0 % 03/10/21 04:29 Promyelocytes % 0 % 03/10/21 04:29 Blast Cells % 0 % 03/10/21 04:29 Nucleated RBC % 3.0 % (0.0-0.9) H 03/10/21 04:29 Seg Neutrophils # 10.5 K/mm3 (1.8-7.7) H 03/17/21 04:40 Seg Neutrophils # Man 19.4 K/mm3 (1.8-7.7) H 03/10/21 04:29 Band Neutrophils # 0.0 K/mm3 03/10/21 04:29 Lymphocytes # (Manual) 0.2 K/mm3 (1.2-5.4) L 03/10/21 04:29 Abs React Lymphs (Man) 0.0 K/mm3 03/10/21 04:29 Monocytes # (Manual) 1.0 K/mm3 (0.0-0.8) H 03/10/21 04:29 Eosinophils # (Manual) 0.0 K/mm3 (0.0-0.4) 03/10/21 04:29 Basophils # (Manual) 0.0 K/mm3 (0.0-0.1) 03/10/21 04:29 Metamyelocytes # 0.0 K/mm3 03/10/21 04:29 Myelocytes # 0.0 K/mm3 03/10/21 04:29 Promyelocytes # 0.0 K/mm3 03/10/21 04:29 Blast Cells # 0.0 K/mm3 03/10/21 04:29 WBC Morphology Not Reportable 03/10/21 04:29 Hypersegmented Neuts Not Reportable 03/10/21 04:29 Hyposegmented Neuts Not Reportable 03/10/21 04:29 Hypogranular Neuts Not Reportable 03/10/21 04:29 Smudge Cells Not Reportable 03/10/21 04:29 Toxic Granulation Not Reportable 03/10/21 04:29 Toxic Vacuolation Not Reportable 03/10/21 04:29 Dohle Bodies Not Reportable 03/10/21 04:29 Pelger-Huet Anomaly Not Reportable 03/10/21 04:29 Mely Rods Not Reportable 03/10/21 04:29 Platelet Estimate Consistent w auto 03/10/21 04:29 Clumped Platelets Not Reportable 03/10/21 04:29 Plt Clumps, EDTA Not Reportable 03/10/21 04:29 Large Platelets Not Reportable 03/10/21 04:29 Giant Platelets Not Reportable 03/10/21 04:29 Platelet Satelliting Not Reportable 03/10/21 04:29 Plt Morphology Comment Not Reportable 03/10/21 04:29 RBC Morphology Normal 03/10/21 04:29 Dimorphic RBCs Not Reportable 03/10/21 04:29 Polychromasia Not Reportable 03/10/21 04:29 Hypochromasia Not Reportable 03/10/21 04:29 Poikilocytosis Not Reportable 03/10/21 04:29 Anisocytosis Not Reportable 03/10/21 04:29 Microcytosis Not Reportable 03/10/21 04:29 Macrocytosis Not Reportable 03/10/21 04:29 Spherocytes Not Reportable 03/10/21 04:29 Pappenheimer Bodies Not Reportable 03/10/21 04:29 Sickle Cells Not Reportable 03/10/21 04:29 Target Cells Not Reportable 03/10/21 04:29 Tear Drop Cells Not Reportable 03/10/21 04:29 Ovalocytes Not Reportable 03/10/21 04:29 Helmet Cells Not Reportable 03/10/21 04:29 [place] Bodies Not Reportable 03/10/21 04:29 [place] Rings Not Reportable 03/10/21 04:29 [place] Cells Not Reportable 03/10/21 04:29 Bite Cells Not Reportable 03/10/21 04:29 Crenated Cell Not Reportable 03/10/21 04:29 Elliptocytes Not Reportable 03/10/21 04:29 Acanthocytes (Spur) Not Reportable 03/10/21 04:29 Rouleaux Not Reportable 03/10/21 04:29 Hemoglobin C Crystals Not Reportable 03/10/21 04:29 Schistocytes Not Reportable 03/10/21 04:29 Malaria parasites Not Reportable 03/10/21 04:29 Shaheen Bodies Not Reportable 03/10/21 04:29 Hem Pathologist Commnt No 03/10/21 04:29 PT 13.0 Sec. (12.2-14.9) 03/29/21 04:50 INR 0.88 (0.87-1.13) 03/29/21 04:50 APTT 28.0 Sec. (24.2-36.6) 03/08/21 20:24 D-Dimer 1359.12 ng/mlDDU (0-234) H 03/17/21 04:40 ABG pH 7.353 pH Units (7.350-7.450) 03/25/21 12:35 POC ABG pCO2 71.9 mmHg (32.0-48.0) H 03/12/21 21:54 ABG pCO2 61.9 mm Hg 03/25/21 12:35 POC ABG pO2 53.6 mmHg (83-108) L 03/12/21 21:54 ABG pO2 100.5 mm Hg (80.0-90.0) H 03/25/21 12:35 POC ABG HCO3 30.0 03/12/21 21:54 ABG HCO3 33.6 mmol/L (20.0-26.0) H 03/25/21 12:35 ABG O2 Saturation 97.3 % (95.0-99.0) 03/25/21 12:35 ABG O2 Content 16.2 (0.0-44) 03/25/21 12:35 POC ABG Base Excess 0.5 03/12/21 21:54 ABG Base Excess 6.4 mmol/L (-2.0-3.0) H 03/25/21 12:35 ABG Hemoglobin 12.0 gm/dl (14.0-18.0) L 03/25/21 12:35 ABG Oxyhemoglobin 84.8 (94-98) L 03/12/21 21:54 ABG Carboxyhemoglobin 1.5 % (0.0-5.0) 03/25/21 12:35 ABG Methemoglobin 0.7 % (0.0-1.5) 03/25/21 12:35 ABG Sodium 134.2 mmol/L (136.0-145.0) L 03/12/21 21:54 ABG Potassium 4.9 mmol/L (3.40-4.50) H 03/12/21 21:54 ABG Chloride 99.0 mmol/L (98-107) 03/12/21 21:54 ABG Glucose 306 mg/dL (65-95) H 03/12/21 21:54 Oxyhemoglobin 95.2 % (95.0-99.0) 03/25/21 12:35 Carboxyhemoglobin 0.6 (0.5-1.5) 03/12/21 21:54 FiO2 50 % 03/25/21 12:35 FiO2 % 50.0 03/12/21 21:54 Sodium 140 mmol/L (137-145) 03/30/21 05:36 Potassium 4.5 mmol/L (3.6-5.0) 03/30/21 05:36 Chloride 101.3 mmol/L (98-107) 03/30/21 05:36 Carbon Dioxide 29 mmol/L (22-30) 03/30/21 05:36 Anion Gap 14 mmol/L 03/30/21 05:36 BUN 11 mg/dL (9-20) 03/30/21 05:36 Creatinine 0.5 mg/dL (0.8-1.3) L 03/30/21 05:36 Estimated GFR > 60 ml/min 03/30/21 05:36 BUN/Creatinine Ratio 22 % 03/30/21 05:36 Glucose 127 mg/dL (75-100) H 03/30/21 05:36 POC Glucose 130 mg/dL (70-105) H 03/30/21 06:03 Lactic Acid 1.90 mmol/L (0.7-2.0) 03/08/21 23:51 Calcium 9.0 mg/dL (8.4-10.2) 03/30/21 05:36 Phosphorus TNR 03/28/21 07:14 Magnesium TNR 03/28/21 07:14 Ferritin 976.4 ng/mL (30.0-300.0) H 03/15/21 04:00 Total Bilirubin 0.20 mg/dL (0.1-1.2) 03/12/21 08:03 AST 10 units/L (5-40) 03/12/21 08:03 ALT 16 units/L (7-56) 03/12/21 08:03 Alkaline Phosphatase 77 units/L (35-129) 03/12/21 08:03 Lactate Dehydrogenase 630 units/L (91-180) H 03/15/21 06:06 C-Reactive Protein 0.40 mg/dL (0.00-1.30) 03/17/21 04:40 NT-Pro-B Natriuret Pep 1053 pg/mL (0-900) H 03/08/21 20:24 Total Protein 6.0 g/dL (6.3-8.2) L 03/12/21 08:03 Albumin 2.9 g/dL (3.9-5) L 03/12/21 08:03 Albumin/Globulin Ratio 0.9 % 03/12/21 08:03 Triglycerides 305 mg/dL (2-149) H 03/22/21 07:26 Procalcitonin 0.05 ng/mL (<0.15) 03/17/21 04:40 Arterial Blood Glucose 306 mg/dL (65-95) H 03/12/21 21:54 Arterial Blood Ionized Calcium 5.0 mg/dL (4.6-5.3) 03/12/21 21:54 Urine Color Yellow (Yellow) 03/09/21 04:10 Urine Turbidity Slightly-cloudy (Clear) 03/09/21 04:10 Urine pH 5.0 (5.0-7.0) 03/09/21 04:10 Ur Specific [place] 1.041 (1.003-1.030) H 03/09/21 04:10 Urine Protein 100 mg/dl mg/dL (Negative) 03/09/21 04:10 Urine Glucose (UA) Neg mg/dL (Negative) 03/09/21 04:10 Urine Ketones Neg mg/dL (Negative) 03/09/21 04:10 Urine Blood Mod (Negative) 03/09/21 04:10 Urine Nitrite Neg (Negative) 03/09/21 04:10 Urine Bilirubin Neg (Negative) 03/09/21 04:10 Urine Urobilinogen 2.0 mg/dL (<2.0) 03/09/21 04:10 Ur Leukocyte Esterase Neg (Negative) 03/09/21 04:10 Urine WBC (Auto) 4.0 /HPF (0.0-6.0) 03/09/21 04:10 Urine RBC (Auto) 1.0 /HPF (0.0-6.0) 03/09/21 04:10 Urine Bacteria (Auto) 1+ /HPF (Negative) 03/09/21 04:10 Urine Mucus Few /HPF 03/09/21 04:10 Coronavirus (PCR) Positive (Negative) A 03/09/21 08:00 Miscellaneous Test Flexitest 1 03/16/21 13:14 Good/IV: Voiding Method Indwelling Catheter Active Medications - Current Medications Current Medications: Generic Name Dose Route Start Last Admin Trade Name Freq PRN Reason Stop Dose Admin Acetaminophen 650 mg 03/09/21 01:26 03/28/21 05:15 Acetaminophen 325 Mg Tab PO 650 mg Q4H PRN Administration Pain MILD(1-3)/Fever >100.5/RAYO Albuterol 2.5 mg 03/09/21 01:26 03/18/21 21:06 Albuterol 2.5 Mg/3 Ml Nebu IH 2.5 mg Q4HRT PRN Administration Shortness Of Breath Arformoterol Tartrate 15 mcg 03/11/21 20:00 03/29/21 20:36 Arformoterol 15 Mcg/2 Ml Nebu IH Not Given Q12HRT BLANCA Ascorbic Acid 500 mg 03/10/21 14:00 03/29/21 21:46 Ascorbic Acid 500 Mg Tab PO 500 mg BID BLANCA Administration Bisacodyl 10 mg 03/26/21 13:43 03/26/21 13:51 Bisacodyl 10 Mg Rect Supp [place] 10 mg QDAY PRN Administration Constipation Budesonide 0.25 mg 03/11/21 20:00 03/29/21 20:36 Budesonide 0.25 Mg/2 Ml Nebu IH Not Given Q12HRT BLANCA Chlordiazepoxide HCl 75 mg 03/22/21 18:00 03/30/21 04:59 Chlordiazepoxide 25 Mg Cap PO 75 mg Q6HR BLANCA Administration Dextrose 0 ml 03/20/21 10:52 Dextrose 10% *Hypoglycemia IV PRN PRN Hypoglycemia Doxazosin Mesylate 1 mg 03/23/21 14:00 03/29/21 10:42 Doxazosin 1 Mg Tab PO Not Given QDAY [facility] Enoxaparin Sodium 60 mg 03/29/21 22:00 03/29/21 21:44 Enoxaparin 60 Mg/0.6 Ml Inj SUB-Q Not Given Q12HR [facility] Famotidine 20 mg 03/12/21 22:00 03/29/21 21:46 Famotidine 20 Mg Tab FEEDTUBE 20 mg BID BLANCA Administration Hydralazine HCl 50 mg 03/23/21 14:26 03/30/21 04:59 Hydralazine 25 Mg Tab PO 50 mg Q8HR [facility] Administration Hydrophilic Ointment 1 applic 03/10/21 15:39 Lip Therapy Vaseline TP Q2HR PRN Dry Lips Fentanyl Citrate 2,000 mcg in 100 mls @ 5.897 mls/hr 03/10/21 17:00 03/30/21 05:06 Fentanyl Drip Premix IV 3 mcg/kg/hr TITR BLANCA 17.69 mls/hr Administration Protocol 1 MCG/KG/HR Propofol 1,000 mg in 100 mls @ 3.507 mls/hr 03/11/21 17:00 03/22/21 18:02 Diprivan 10 Mg/Ml IV 0 mcg/kg/min TITR BLANCA 0 mls/hr Titration Protocol 5 MCG/KG/MIN Dextrose/Sodium Chloride 1,000 mls @ 75 mls/hr 03/29/21 13:00 D5/0.45ns IV 03/31/21 02:19 DIRECT [facility] Insulin Glargine 15 units 03/29/21 22:00 03/29/21 21:46 Insulin Glargine 100 Units/Ml SUB-Q 15 units QHS [facility] Administration Insulin Human Lispro 0 unit 03/11/21 18:00 03/30/21 06:14 Insulin Lispro 100 Unit/Ml SUB-Q Not Given Q6HR [facility] Protocol Labetalol HCl 10 mg 03/12/21 21:13 03/21/21 16:54 Labetalol 20 Mg/4 Ml Inj IV 10 mg Q6H PRN Administration Blood Pressure Metoclopramide HCl 5 mg 03/29/21 22:00 03/30/21 04:59 Metoclopramide 10 Mg/2 Ml Inj IV 03/31/21 21:59 5 mg Q8HR [facility] Administration Metoprolol Tartrate 12.5 mg 03/21/21 22:00 03/29/21 21:45 Metoprolol Tartrate 25 Mg Tab PO 12.5 mg BID BLANCA Administration Midazolam HCl 2 mg 03/15/21 08:49 03/30/21 05:37 Midazolam 2 Mg/2 Ml Inj IV 2 mg Q2H PRN Administration VENT SYNCHRONY Multi-Ingred Cream/Lotion/Oil/Oint 1 applic 03/10/21 15:39 Mineral Oil/Petrolatum, White Ophth Oint 3.5 Gm OU Q4HR PRN Dry Eye(s) Ondansetron HCl 4 mg 03/09/21 01:26 Ondansetron 4 Mg/2 Ml Inj IV Q8H PRN Nausea And Vomiting Phenyleph/Shark Oil/Min Oil/Petrol 1 applic 03/22/21 17:35 03/29/21 03:59 Pe/Mo/Pet,Wh 10 Applic/28 Gm Tube [place] 1 applic Q6HR PRN Administration Hemorrhoids Prednisone 10 mg 03/29/21 10:00 03/29/21 10:44 Prednisone 10 Mg Tab PO Not Given DAILY [facility]ANCA Quetiapine Fumarate 300 mg 03/21/21 22:00 03/29/21 21:46 Quetiapine 100 Mg Tab PO 300 mg BID BLANCA Administration Senna/Docusate Sodium 1 tab 03/10/21 22:00 03/29/21 21:46 Sennosides/Docusate Sodium 8.6/50 Mg Tab FEEDTUBE 1 tab BID BLANCA Administration Sodium Chloride 10 ml 03/09/21 10:00 03/29/21 21:46 Sodium Chloride 0.9% 10 Ml Flush Syringe IV 10 ml BID BLANCA Administration Sodium Chloride 10 ml 03/09/21 01:26 Sodium Chloride 0.9% 10 Ml Flush Syringe IV PRN PRN LINE FLUSH Sodium Chloride 10 ml 03/20/21 09:48 Sodium Chloride 0.9% 50 Ml Ivpb IV PRN PRN FLUSH Zinc Sulfate 220 mg 03/10/21 14:00 03/29/21 21:47 Zinc Sulfate 220 Mg Cap PO 220 mg BID BLANCA Administration Nutrition/Malnutrition Assess - Dietary Evaluation Nutrition/Malnutrition Findings: Nutrition Notes Start: 03/09/21 08:49 Freq: Status: Active Protocol: Document 03/27/21 14:48 BRIAN (Rec: 03/27/21 15:01 [email or web address] [email or web address]) Nutrition Notes Initial or Follow up Reassessment Current Diagnosis Diabetes,Sepsis,Hypertension, Respiratory Failure Other Pertinent Diagnosis COVID-19, Bilateral Pneumonia. Current Diet TF-Glucerna 1.2 at 40 ml/hr Labs/Tests BG 150 Na 136 (Na lab been <145 since 03/24) Pertinent Medications Solumedrol Height 5 ft 11 in Weight 122 kg [place] Body Weight (kg) 78.18 BMI 37.5 Weight Status Obese Subjective/Other Information Pt remains on vent support, but no longer receives propofol. RN informed of intent to increase TF goal rate. Percent of energy/protein needs met: 47% energy 45% pro Burn Absent Trauma Absent #1 Nutrition Diagnosis Inadequate oral intake Diagnosis Progress(for reassessment Continues documentation) Is patient on ventilator? Yes Is Patient Ambulatory and/or Out of Bed No REE-([place]-confined to bed) [phone] Calculation Used for Recommendations 70-80% energy needs Additional Notes Energy needs: 5244-1478 kcal/ day Pro needs 1.3g/kg adjBW: 130g/ day Fluid needs 1ml/kcal Nutrition Intervention Nutrition Support: Increase TF goal rate to 70ml/ hr with 110ml water flush q4h. Kcal 2,016 Protein (gm) 101 Carbohydrates (gm) 192 Fat (gm) 101 Fluid (mL) 1,352 Fiber (gm) 27 Goal #1 TF tolerance Goal #2 TF to meet at least 75% energy and pro needs Follow-Up By: 03/31/21 Additional Comments F/U: TF goal rate increase/ tolerance, vent status, Na lab /water flush
[2021-03-29] MEDS: MIDAZOLAM 2 MG/2 ML INJ IV PRN ×2 (17:55→22:15)
[2021-03-29] MEDS: ENOXAPARIN 60 MG/0.6 ML INJ SUB-Q SCH (21:44)
[2021-03-29] MEDS: INSULIN GLARGINE 100 UNITS/ML SUB-Q SCH (21:46)
[2021-03-29] MEDS: METOCLOPRAMIDE 10 MG/2 ML INJ IV SCH (21:46)
[2021-03-30] MEDS: INSULIN LISPRO 100 UNIT/ML SUB-Q SCH ×4 (00:14→18:36)
[2021-03-30] MEDS: METOCLOPRAMIDE 10 MG/2 ML INJ IV SCH ×3 (04:59→21:03)
[2021-03-30] MEDS: chlordiazePOXIDE 25 MG CAP PO SCH ×3 (04:59→18:36)
[2021-03-30] MEDS: hydrALAZINE 25 MG TAB PO SCH ×3 (04:59→21:02)
[2021-03-30] MEDS: fentaNYL DRIP Premix 2,000 MCG/100 ML BAG IV SCH ×3 (05:06→21:33)
[2021-03-30] MEDS: MIDAZOLAM 2 MG/2 ML INJ IV PRN ×2 (05:37→08:49)
[2021-03-30 06:27] LABS: Hematocrit 38.6 % (35.5-45.6); Hemoglobin 12.2 gm/dl (11.8-15.2); Mean Corpuscular HGB Conc 32 % (32-34); Mean Corpuscular Volume 94 fl (84-94); Platelet Count 183 K/mm3 (140-440); Red Blood Count 4.11 M/mm3 (3.65-5.03); Red Cell Distribution Width 16.7 % (13.2-15.2)
[2021-03-30 06:44] LABS: Blood Urea Nitrogen 11 mg/dL (9-20); Hemolysis Index 69
[2021-03-30 07:01] LABS: BUN/Creatinine Ratio 22
[2021-03-30] MEDS: amLODIPine 5 MG TAB PO SCH (09:33)
[2021-03-30] MEDS: ASCORBIC ACID 500 MG TAB PO SCH ×2 (09:33→21:03)
[2021-03-30] MEDS: DOXAZOSIN 1 MG TAB PO SCH (09:33)
[2021-03-30] MEDS: predniSONE 10 MG TAB PO SCH (09:33)
[2021-03-30] MEDS: ZINC SULFATE 220 MG CAP PO SCH ×2 (09:33→21:02)
[2021-03-30] MEDS: METOPROLOL TARTRATE 25 MG TAB PO SCH ×2 (09:33→21:02)
[2021-03-30] MEDS: QUEtiapine 100 MG TAB PO SCH ×2 (09:33→21:02)
[2021-03-30] MEDS: SENNOSIDES/DOCUSATE SODIUM 8.6/50 MG TAB FEEDTUBE SCH ×2 (09:33→21:03)
[2021-03-30] MEDS: ENOXAPARIN 60 MG/0.6 ML INJ SUB-Q SCH ×2 (09:34→21:03)
[2021-03-30] MEDS: ARFORMOTEROL 15 MCG/2 ML NEBU IH SCH ×2 (10:32→20:09)
[2021-03-30] MEDS: BUDESONIDE 0.25 MG/2 ML NEBU IH SCH ×2 (10:32→20:09)
[2021-03-30] MEDS: FAMOTIDINE 20 MG TAB FEEDTUBE SCH ×2 (10:37→21:02)
--- NOTE | 2021-03-30 11:01 | Progress Note ---
<DEBBY ELLISON - Last Filed: 03/30/21 17:16> Assessment and Plan Assessment and plan: This is a 61-year-old male with past medical history of HTN and DM admitted for sepsis and acute hypoxic respiratory failure 2/2 COVID pneumonia requiring ventilatory support. Hospital Course to Date: 03/09: The patient was seen and evaluated today, and he was found to be hemodynamically stable. The patient is currently on BiPAP for possible COVID-19 pneumonia. He was started on Lovenox 1mg/kg for DVT ppx in the setting of d- dimer > 10,000. Infectious Disease was consulted. The patient is pending a TTE. 03/10: No acute events overnight, patient was intubated in the afternoon transferred to ICU 03/11: Patient started on Lantus, free water flushes increased, propofol drip resumed and oral antihypertensive added. 03/12: lantus increased, k at 5, will monitor. I updated his family and his stated that he is not vaccinated. He does have HTN and she will call the RN to update home medications. She did say he takes bystolic and amlopine. She inquired about ventilator and lab work. She had no further questions. 03/13: KVNG overnight. Patient remains hyperglycemic, basal insulin adjusted and increased to Q12hrs. Patient is overall net positive since admit X1 dose of IV lasix, repeat BMP this afternoon. 03/14: Failed SAT this am due to increase agitation, tachycardia and hypertension. Remains on propofol and fentanyl gtt. Hyperkalemia treated with PO kayaxalate. Patient responded to IV lasix yesterday additional dose again today for a net negative balance. Repeat BMP this afternoon. Insulin adjusted for hyperglycemia. 03/15: Remains encephalopathic, not following commansd. Orders placed for CT head/Brain and Neuro consulted. Rectal bleeding subsided, most likely due to hemorrhoids. H&H is stable will continue to monitor. Kayaxexalate for high K, repeat labs 4 to 6hrs post treatment. 03/16: Still agiated this am, CT head with no acute Abn. CXR and ABG noted- evolving pna and worsening hypoxia, now with low grade fevers. Sputum culture ordered, IV Abx added, ID on cosult. 03/17: This am ABG noted, hypoxia improved. Continue to wean FiO2 as tolerated. Still with low grade fevers, on IV Abx per ID. Still with periods of confusion despite sedation, seroquel increased. F/u CXR in the am 03/18: still very agitated especially when off sedation, with hypertension and tachycardia. Continue sedation for RASS -2, PRN antihypertensive for SPB greater than 160. This febrile this am, continue current IV abx per ID 03/19: Patient afebrile overnight, continue IV Abx per ID. ABG also improved this am, continue to wean FIO2 as tolerated. PRN antihypertensive for hypertension. 03/20: Hyperkalemia treated with Kayexalate, Good discontinued, vancomycin and cefepime stopped started Bactrim by ID. Steroid taper started. 03/21: BB started for hypertension, Seroquel increased for agitation and Librium started no acute events reported overnight. [facility] made vent changes 03/22: Adjustment to anxiolytics, respiratory rate on ventilator per [facility]. Patient noted to have bleeding hemorrhoids with clot, requested RN to remove bowel management system and will order Preparation H. 03/23: Given no confirmed DVT or PE (only superficial thrombus noted on Dopplers) therapeutic Lovenox changed to prophylactic Lovenox. Started on doxazosin to help with retention. Consulted surgery for tracheostomy and propofol discontinued. 03/24: Surgery consult completed, patient changed to prophylaxis anticoagulation, started on doxazosin yesterday with plans to remove Good catheter in 48 hours. Patient with slight hypokalemia today and given Kayexalate. No acute events reported overnight. 03/25: No acute events reported overnight. Patient remains on fentanyl drip and on CPAP trial this morning. 03/26: no acute events reported overnight. placed on CPAP this AM, remains on fent/librium. scheduled for trach/peg this week. 03/27: Hypoglycemic this am, will decreased lantus to Qhs. Plan for possible Trach and Peg by Gen Surg this am. Case management to arrange possible LTAC placement 03/28: KVNG overnight. Tolerating PST this am. Plan for trach and PEG tomorrow by Gen. Surgery, NPO after midnight. 03/29: No significant changes overnight. Plan for trach and Peg today. Case management to arrange possible LTAC placement 03/30. S/p Trach and PEG, no complications noted. High residual yesterday despite NPO status, reglan added X2 days. Per RN no residual this am, patient is tolerating TF. Continue to advance TF as tolerated. Norvasc added for hypertension. Pitting edema also appreciated, some diuretic might be beneficial, will d/w CCM. Continue daily PST as tolerated. Assessment and Plan #Acute Hypoxic Respiratory Failure #COVID Pneumonia - Intubated on 03/10 due to worsen hypoxia on BIPAP - 2/2 s/p Tracheostomy - Vent setting:PRVC-45%,6,12,450 - No ABG this am - CCM consulted, appreciate recommendations - Continue IV Steroids and Nebs per CCM - keep patient net negative for better lung compliance - VAP bundle addressed - Aspiration precaution HOB above 30 - Daily SBT and SAT trials as tolerated - Daily ABG and CXR - Continue SPO2 monitoring for SPO2 goal above 92% #Sepsis #COVID Pneumonia #Leukocytosis #Lactic Acidosis- Resolved - COVID PCR positive - UA neg, Blood cultures and Sputum culture NGTD - repeat Bculture NGTD, 03/17 Sputum Cult + Stenotrophomonas - Infectious disease consulted, appreciate recommendation - S/p Actemra 03/10/2021 - Completed X5days course of IV remdesivir - Completed IV Abx course - Monitor WBC and temperature curve - Trend CBC #Neuro:Acute Encephalopathy - Intubated and sedated on fentanyl RASS -2 - CT head/brain no acute Abn. - On Seroquel and Librium - Avoid benzodiazepine to reduce the possibility of delirium - Prn analgesia for CPOT greater than 3 - Maintenance of sleep-wake cycle - Neurology on consult #CV: Hypertension - High BP overnight - 03/09 Echocardiogram shows a mildly dilated ascending aorta, normal LV systolic function, mild concentric LVH, LVEF 60 to 65% - Continue current antihypertensive regimen - Norvasc added for better control - PRN Labetalol for SBP above 160 - Continue Blood pressure monitoring per protocol #Hyponatremia-resolved - Strict intake and output - Avoid nephrotoxic medications; Renally dose medications - Good in place - Monitor and replace electrolytes as needed -Trend BMP #Elevated D-dimer - Most likely due to COVID - Bilateral lower extremity ultrasounds negative for DVT, superficial thrombus in left gastrocnemius vein - CTA chest shows no gross pulm embolism - H&H stable - Continue AC- Lovenox SubQ - SCDs to BLE while in bed - Transfuse hemoglobin less than 7 - Monitor for signs of bleeding #Endo:Type 2 DM - Hypoglycemic this am - Continue high dose SSI Q6hrs - Lantus qHs - Avoid Hypoglycemia The high probability of a clinically significant, sudden or life threatening deterioration of the [Respiratory] system(s) required my full and direct attention, intervention and personal management. The aggregate critical care time was [60] minutes. This time is in addition to time spent performing reported procedures but includes the following: [x] Data Review and interpretation [x] Patient assessment and monitoring of vital signs [x] Documentation [x] Medication orders and management Disposition Plan: ICU Total Time Spent with Patient (Minutes): 60 History Interval history: Patient seen and examined at the bedside. S/p trach and PEG. Remains on thevent, TF resumed overnight. High residual post PEG placement yesterday, reglan added. Per RN no residual this am, plan to advance TF as ordered. Patient remains on fentanyl gtt, RASS -1. Hospitalist Physical - Constitutional Vitals: Temp Pulse Resp BP Pulse Ox 99.6 F 109 H 17 119/65 97 03/30/21 07:15 03/30/21 10:00 03/30/21 10:00 03/30/21 10:00 03/30/21 10:00 General appearance: Present: no acute distress, well-nourished, obese, other (On the vent, on sedation) - EENT Eyes: Present: PERRL ENT: hearing intact - Respiratory Respiratory effort: normal Respiratory: bilateral: rhonchi - Cardiovascular Rhythm: regular Heart Sounds: Present: S1 & S2 - Extremities Extremities: no ischemia, pulses intact, pulses symmetrical Extremity abnormal: edema - Peripheral Assessment Generalized Edema Type: Pitting Edema Degree: 3+ Capillary Refill: < 3 seconds Skin Temperature: Warm Peripheral Pulses: within normal limits - Abdominal General gastrointestinal: soft, non-distended, normal bowel sounds - Integumentary Integumentary: Present: warm, dry - Psychiatric Psychiatric: other (On Sedation) - Neurologic Neurologic: other (On sedation) - Allied Health Allied health notes reviewed: nursing, case management Results - Labs CBC & Chem 7: 03/30/21 05:36 03/30/21 05:36 Labs: Laboratory Last Values WBC 9.6 K/mm3 (4.5-11.0) 03/30/21 05:36 RBC 4.11 M/mm3 (3.65-5.03) 03/30/21 05:36 Hgb 12.2 gm/dl (11.8-15.2) 03/30/21 05:36 Hct 38.6 % (35.5-45.6) 03/30/21 05:36 MCV 94 fl (84-94) 03/30/21 05:36 MCH 30 pg (28-32) 03/30/21 05:36 MCHC 32 % (32-34) 03/30/21 05:36 RDW 16.7 % (13.2-15.2) H 03/30/21 05:36 Plt Count 183 K/mm3 (140-440) 03/30/21 05:36 Lymph % (Auto) 12.6 % (13.4-35.0) L 03/17/21 04:40 [place] % (Auto) 11.3 % (0.0-7.3) H 03/17/21 04:40 Eos % (Auto) 0.4 % (0.0-4.3) 03/17/21 04:40 Baso % (Auto) 0.8 % (0.0-1.8) 03/17/21 04:40 Lymph # (Auto) 1.8 K/mm3 (1.2-5.4) 03/17/21 04:40 [place] # (Auto) 1.6 K/mm3 (0.0-0.8) H 03/17/21 04:40 Eos # (Auto) 0.1 K/mm3 (0.0-0.4) 03/17/21 04:40 Baso # (Auto) 0.1 K/mm3 (0.0-0.1) 03/17/21 04:40 Add Manual Diff Complete 03/10/21 04:29 Total Counted 100 03/10/21 04:29 Seg Neutrophils % 74.9 % (40.0-70.0) H 03/17/21 04:40 Seg Neuts % (Manual) 94.0 % (40.0-70.0) H 03/10/21 04:29 Band Neutrophils % 0 % 03/10/21 04:29 Lymphocytes % (Manual) 1.0 % (13.4-35.0) L 03/10/21 04:29 Reactive Lymphs % (Man) 0 % 03/10/21 04:29 Monocytes % (Manual) 5.0 % (0.0-7.3) 03/10/21 04:29 Eosinophils % (Manual) 0 % (0.0-4.3) 03/10/21 04:29 Basophils % (Manual) 0 % (0.0-1.8) 03/10/21 04:29 Metamyelocytes % 0 % 03/10/21 04:29 Myelocytes % 0 % 03/10/21 04:29 Promyelocytes % 0 % 03/10/21 04:29 Blast Cells % 0 % 03/10/21 04:29 Nucleated RBC % 3.0 % (0.0-0.9) H 03/10/21 04:29 Seg Neutrophils # 10.5 K/mm3 (1.8-7.7) H 03/17/21 04:40 Seg Neutrophils # Man 19.4 K/mm3 (1.8-7.7) H 03/10/21 04:29 Band Neutrophils # 0.0 K/mm3 03/10/21 04:29 Lymphocytes # (Manual) 0.2 K/mm3 (1.2-5.4) L 03/10/21 04:29 Abs React Lymphs (Man) 0.0 K/mm3 03/10/21 04:29 Monocytes # (Manual) 1.0 K/mm3 (0.0-0.8) H 03/10/21 04:29 Eosinophils # (Manual) 0.0 K/mm3 (0.0-0.4) 03/10/21 04:29 Basophils # (Manual) 0.0 K/mm3 (0.0-0.1) 03/10/21 04:29 Metamyelocytes # 0.0 K/mm3 03/10/21 04:29 Myelocytes # 0.0 K/mm3 03/10/21 04:29 Promyelocytes # 0.0 K/mm3 03/10/21 04:29 Blast Cells # 0.0 K/mm3 03/10/21 04:29 WBC Morphology Not Reportable 03/10/21 04:29 Hypersegmented Neuts Not Reportable 03/10/21 04:29 Hyposegmented Neuts Not Reportable 03/10/21 04:29 Hypogranular Neuts Not Reportable 03/10/21 04:29 Smudge Cells Not Reportable 03/10/21 04:29 Toxic Granulation Not Reportable 03/10/21 04:29 Toxic Vacuolation Not Reportable 03/10/21 04:29 Dohle Bodies Not Reportable 03/10/21 04:29 Pelger-Huet Anomaly Not Reportable 03/10/21 04:29 Mely Rods Not Reportable 03/10/21 04:29 Platelet Estimate Consistent w auto 03/10/21 04:29 Clumped Platelets Not Reportable 03/10/21 04:29 Plt Clumps, EDTA Not Reportable 03/10/21 04:29 Large Platelets Not Reportable 03/10/21 04:29 Giant Platelets Not Reportable 03/10/21 04:29 Platelet Satelliting Not Reportable 03/10/21 04:29 Plt Morphology Comment Not Reportable 03/10/21 04:29 RBC Morphology Normal 03/10/21 04:29 Dimorphic RBCs Not Reportable 03/10/21 04:29 Polychromasia Not Reportable 03/10/21 04:29 Hypochromasia Not Reportable 03/10/21 04:29 Poikilocytosis Not Reportable 03/10/21 04:29 Anisocytosis Not Reportable 03/10/21 04:29 Microcytosis Not Reportable 03/10/21 04:29 Macrocytosis Not Reportable 03/10/21 04:29 Spherocytes Not Reportable 03/10/21 04:29 Pappenheimer Bodies Not Reportable 03/10/21 04:29 Sickle Cells Not Reportable 03/10/21 04:29 Target Cells Not Reportable 03/10/21 04:29 Tear Drop Cells Not Reportable 03/10/21 04:29 Ovalocytes Not Reportable 03/10/21 04:29 Helmet Cells Not Reportable 03/10/21 04:29 [place] Bodies Not Reportable 03/10/21 04:29 [place] Rings Not Reportable 03/10/21 04:29 [place] Cells Not Reportable 03/10/21 04:29 Bite Cells Not Reportable 03/10/21 04:29 Crenated Cell Not Reportable 03/10/21 04:29 Elliptocytes Not Reportable 03/10/21 04:29 Acanthocytes (Spur) Not Reportable 03/10/21 04:29 Rouleaux Not Reportable 03/10/21 04:29 Hemoglobin C Crystals Not Reportable 03/10/21 04:29 Schistocytes Not Reportable 03/10/21 04:29 Malaria parasites Not Reportable 03/10/21 04:29 [place] Bodies Not Reportable 03/10/21 04:29 Hem Pathologist Commnt No 03/10/21 04:29 PT 13.0 Sec. (12.2-14.9) 03/29/21 04:50 INR 0.88 (0.87-1.13) 03/29/21 04:50 APTT 28.0 Sec. (24.2-36.6) 03/08/21 20:24 D-Dimer 1359.12 ng/mlDDU (0-234) H 03/17/21 04:40 ABG pH 7.353 pH Units (7.350-7.450) 03/25/21 12:35 POC ABG pCO2 71.9 mmHg (32.0-48.0) H 03/12/21 21:54 ABG pCO2 61.9 mm Hg 03/25/21 12:35 POC ABG pO2 53.6 mmHg (83-108) L 03/12/21 21:54 ABG pO2 100.5 mm Hg (80.0-90.0) H 03/25/21 12:35 POC ABG HCO3 30.0 03/12/21 21:54 ABG HCO3 33.6 mmol/L (20.0-26.0) H 03/25/21 12:35 ABG O2 Saturation 97.3 % (95.0-99.0) 03/25/21 12:35 ABG O2 Content 16.2 (0.0-44) 03/25/21 12:35 POC ABG Base Excess 0.5 03/12/21 21:54 ABG Base Excess 6.4 mmol/L (-2.0-3.0) H 03/25/21 12:35 ABG Hemoglobin 12.0 gm/dl (14.0-18.0) L 03/25/21 12:35 ABG Oxyhemoglobin 84.8 (94-98) L 03/12/21 21:54 ABG Carboxyhemoglobin 1.5 % (0.0-5.0) 03/25/21 12:35 ABG Methemoglobin 0.7 % (0.0-1.5) 03/25/21 12:35 ABG Sodium 134.2 mmol/L (136.0-145.0) L 03/12/21 21:54 ABG Potassium 4.9 mmol/L (3.40-4.50) H 03/12/21 21:54 ABG Chloride 99.0 mmol/L (98-107) 03/12/21 21:54 ABG Glucose 306 mg/dL (65-95) H 03/12/21 21:54 Oxyhemoglobin 95.2 % (95.0-99.0) 03/25/21 12:35 Carboxyhemoglobin 0.6 (0.5-1.5) 03/12/21 21:54 FiO2 50 % 03/25/21 12:35 FiO2 % 50.0 03/12/21 21:54 Sodium 140 mmol/L (137-145) 03/30/21 05:36 Potassium 4.5 mmol/L (3.6-5.0) 03/30/21 05:36 Chloride 101.3 mmol/L (98-107) 03/30/21 05:36 Carbon Dioxide 29 mmol/L (22-30) 03/30/21 05:36 Anion Gap 14 mmol/L 03/30/21 05:36 BUN 11 mg/dL (9-20) 03/30/21 05:36 Creatinine 0.5 mg/dL (0.8-1.3) L 03/30/21 05:36 Estimated GFR > 60 ml/min 03/30/21 05:36 BUN/Creatinine Ratio 22 % 03/30/21 05:36 Glucose 127 mg/dL (75-100) H 03/30/21 05:36 POC Glucose 130 mg/dL (70-105) H 03/30/21 06:03 Lactic Acid 1.90 mmol/L (0.7-2.0) 03/08/21 23:51 Calcium 9.0 mg/dL (8.4-10.2) 03/30/21 05:36 Phosphorus TNR 03/28/21 07:14 Magnesium TNR 03/28/21 07:14 Ferritin 976.4 ng/mL (30.0-300.0) H 03/15/21 04:00 Total Bilirubin 0.20 mg/dL (0.1-1.2) 03/12/21 08:03 AST 10 units/L (5-40) 03/12/21 08:03 ALT 16 units/L (7-56) 03/12/21 08:03 Alkaline Phosphatase 77 units/L (35-129) 03/12/21 08:03 Lactate Dehydrogenase 630 units/L (91-180) H 03/15/21 06:06 C-Reactive Protein 0.40 mg/dL (0.00-1.30) 03/17/21 04:40 NT-Pro-B Natriuret Pep 1053 pg/mL (0-900) H 03/08/21 20:24 Total Protein 6.0 g/dL (6.3-8.2) L 03/12/21 08:03 Albumin 2.9 g/dL (3.9-5) L 03/12/21 08:03 Albumin/Globulin Ratio 0.9 % 03/12/21 08:03 Triglycerides 305 mg/dL (2-149) H 03/22/21 07:26 Procalcitonin 0.05 ng/mL (<0.15) 03/17/21 04:40 Arterial Blood Glucose 306 mg/dL (65-95) H 03/12/21 21:54 Arterial Blood Ionized Calcium 5.0 mg/dL (4.6-5.3) 03/12/21 21:54 Urine Color Yellow (Yellow) 03/09/21 04:10 Urine Turbidity Slightly-cloudy (Clear) 03/09/21 04:10 Urine pH 5.0 (5.0-7.0) 03/09/21 04:10 Ur Specific [place] 1.041 (1.003-1.030) H 03/09/21 04:10 Urine Protein 100 mg/dl mg/dL (Negative) 03/09/21 04:10 Urine Glucose (UA) Neg mg/dL (Negative) 03/09/21 04:10 Urine Ketones Neg mg/dL (Negative) 03/09/21 04:10 Urine Blood Mod (Negative) 03/09/21 04:10 Urine Nitrite Neg (Negative) 03/09/21 04:10 Urine Bilirubin Neg (Negative) 03/09/21 04:10 Urine Urobilinogen 2.0 mg/dL (<2.0) 03/09/21 04:10 Ur Leukocyte Esterase Neg (Negative) 03/09/21 04:10 Urine WBC (Auto) 4.0 /HPF (0.0-6.0) 03/09/21 04:10 Urine RBC (Auto) 1.0 /HPF (0.0-6.0) 03/09/21 04:10 Urine Bacteria (Auto) 1+ /HPF (Negative) 03/09/21 04:10 Urine Mucus Few /HPF 03/09/21 04:10 Coronavirus (PCR) Positive (Negative) A 03/09/21 08:00 Miscellaneous Test Flexitest 1 03/16/21 13:14 Good/IV: Voiding Method Indwelling Catheter Active Medications - Current Medications Current Medications: Generic Name Dose Route Start Last Admin Trade Name Freq PRN Reason Stop Dose Admin Acetaminophen 650 mg 03/09/21 01:26 03/28/21 05:15 Acetaminophen 325 Mg Tab PO 650 mg Q4H PRN Administration Pain MILD(1-3)/Fever >100.5/RAYO Albuterol 2.5 mg 03/09/21 01:26 03/18/21 21:06 Albuterol 2.5 Mg/3 Ml Nebu IH 2.5 mg Q4HRT PRN Administration Shortness Of Breath Amlodipine Besylate 5 mg 03/30/21 10:00 03/30/21 09:33 Amlodipine 5 Mg Tab PO 5 mg QDAY BLANCA Administration Arformoterol Tartrate 15 mcg 03/11/21 20:00 03/30/21 10:32 Arformoterol 15 Mcg/2 Ml Nebu IH Not Given Q12HRT BLANCA Ascorbic Acid 500 mg 03/10/21 14:00 03/30/21 09:33 Ascorbic Acid 500 Mg Tab PO 500 mg BID BLANCA Administration Bisacodyl 10 mg 03/26/21 13:43 03/26/21 13:51 Bisacodyl 10 Mg Rect Supp MI 10 mg QDAY PRN Administration Constipation Budesonide 0.25 mg 03/11/21 20:00 03/30/21 10:32 Budesonide 0.25 Mg/2 Ml Nebu IH Not Given Q12HRT BLANCA Chlordiazepoxide HCl 75 mg 03/22/21 18:00 03/30/21 04:59 Chlordiazepoxide 25 Mg Cap PO 75 mg Q6HR BLANCA Administration Dextrose 0 ml 03/20/21 10:52 Dextrose 10% *Hypoglycemia IV PRN PRN Hypoglycemia Doxazosin Mesylate 1 mg 03/23/21 14:00 03/30/21 09:33 Doxazosin 1 Mg Tab PO 1 mg QDAY BLANCA Administration Enoxaparin Sodium 60 mg 03/29/21 22:00 03/30/21 09:34 Enoxaparin 60 Mg/0.6 Ml Inj SUB-Q 60 mg Q12HR BLANCA Administration Famotidine 20 mg 03/12/21 22:00 03/29/21 21:46 Famotidine 20 Mg Tab FEEDTUBE 20 mg BID BLANCA Administration Hydralazine HCl 50 mg 03/23/21 14:26 03/30/21 04:59 Hydralazine 25 Mg Tab PO 50 mg Q8HR BLANCA Administration Hydrophilic Ointment 1 applic 03/10/21 15:39 Lip Therapy Vaseline TP Q2HR PRN Dry Lips Fentanyl Citrate 2,000 mcg in 100 mls @ 5.897 mls/hr 03/10/21 17:00 03/30/21 10:59 Fentanyl Drip Premix IV 1.5 mcg/kg/hr TITR BLANCA 8.845 mls/hr Titration Protocol 1 MCG/KG/HR Propofol 1,000 mg in 100 mls @ 3.507 mls/hr 03/11/21 17:00 03/22/21 18:02 Diprivan 10 Mg/Ml IV 0 mcg/kg/min TITR BLANCA 0 mls/hr Titration Protocol 5 MCG/KG/MIN Dextrose/Sodium Chloride 1,000 mls @ 75 mls/hr 03/29/21 13:00 D5/0.45ns IV 03/31/21 02:19 DIRECT [facility] Insulin Glargine 15 units 03/29/21 22:00 03/29/21 21:46 Insulin Glargine 100 Units/Ml SUB-Q 15 units QHS BLANCA Administration Insulin Human Lispro 0 unit 03/11/21 18:00 03/30/21 06:14 Insulin Lispro 100 Unit/Ml SUB-Q Not Given Q6HR [facility] Protocol Labetalol HCl 10 mg 03/12/21 21:13 03/21/21 16:54 Labetalol 20 Mg/4 Ml Inj IV 10 mg Q6H PRN Administration Blood Pressure Metoclopramide HCl 5 mg 03/29/21 22:00 03/30/21 04:59 Metoclopramide 10 Mg/2 Ml Inj IV 03/31/21 21:59 5 mg Q8HR BLANCA Administration Metoprolol Tartrate 12.5 mg 03/21/21 22:00 03/30/21 09:33 Metoprolol Tartrate 25 Mg Tab PO 12.5 mg BID BLANCA Administration Midazolam HCl 2 mg 03/15/21 08:49 03/30/21 08:49 Midazolam 2 Mg/2 Ml Inj IV 2 mg Q2H PRN Administration VENT SYNCHRONY Multi-Ingred Cream/Lotion/Oil/Oint 1 applic 03/10/21 15:39 Mineral Oil/Petrolatum, White Ophth Oint 3.5 Gm OU Q4HR PRN Dry Eye(s) Ondansetron HCl 4 mg 03/09/21 01:26 Ondansetron 4 Mg/2 Ml Inj IV Q8H PRN Nausea And Vomiting Phenyleph/Shark Oil/Min Oil/Petrol 1 applic 03/22/21 17:35 03/29/21 03:59 Pe/Mo/Pet,Wh 10 Applic/28 Gm Tube MI 1 applic Q6HR PRN Administration Hemorrhoids Prednisone 10 mg 03/29/21 10:00 03/30/21 09:33 Prednisone 10 Mg Tab PO 10 mg DAILY BLANCA Administration Quetiapine Fumarate 300 mg 03/21/21 22:00 03/30/21 09:33 Quetiapine 100 Mg Tab PO 300 mg BID BLANCA Administration Senna/Docusate Sodium 1 tab 03/10/21 22:00 03/30/21 09:33 Sennosides/Docusate Sodium 8.6/50 Mg Tab FEEDTUBE 1 tab BID BLANCA Administration Sodium Chloride 10 ml 03/09/21 10:00 03/30/21 09:34 Sodium Chloride 0.9% 10 Ml Flush Syringe IV 10 ml BID BLANCA Administration Sodium Chloride 10 ml 03/09/21 01:26 Sodium Chloride 0.9% 10 Ml Flush Syringe IV PRN PRN LINE FLUSH Sodium Chloride 10 ml 03/20/21 09:48 Sodium Chloride 0.9% 50 Ml Ivpb IV PRN PRN FLUSH Zinc Sulfate 220 mg 03/10/21 14:00 03/30/21 09:33 Zinc Sulfate 220 Mg Cap PO 220 mg BID BLANCA Administration Nutrition/Malnutrition Assess - Dietary Evaluation Nutrition/Malnutrition Findings: Nutrition Notes Start: 03/09/21 08:49 Freq: Status: Active Protocol: Document 03/27/21 14:48 BRIAN (Rec: 03/27/21 15:01 BRIAN [id number]) Nutrition Notes Initial or Follow up Reassessment Current Diagnosis Diabetes,Sepsis,Hypertension, Respiratory Failure Other Pertinent Diagnosis COVID-19, Bilateral Pneumonia. Current Diet TF-Glucerna 1.2 at 40 ml/hr Labs/Tests BG 150 Na 136 (Na lab been <145 since 03/24) Pertinent Medications Solumedrol Height 5 ft 11 in Weight 122 kg [place] Body Weight (kg) 78.18 BMI 37.5 Weight Status Obese Subjective/Other Information Pt remains on vent support, but no longer receives propofol. RN informed of intent to increase TF goal rate. Percent of energy/protein needs met: 47% energy 45% pro Burn Absent Trauma Absent #1 Nutrition Diagnosis Inadequate oral intake Diagnosis Progress(for reassessment Continues documentation) Is patient on ventilator? Yes Is Patient Ambulatory and/or Out of Bed No REE-([place]-St. Jeor-confined to bed) 2449.140 Calculation Used for Recommendations 70-80% energy needs Additional Notes Energy needs: 1444-0636 kcal/ day Pro needs 1.3g/kg adjBW: 130g/ day Fluid needs 1ml/kcal Nutrition Intervention Nutrition Support: Increase TF goal rate to 70ml/ hr with 110ml water flush q4h. Kcal 2,016 Protein (gm) 101 Carbohydrates (gm) 192 Fat (gm) 101 Fluid (mL) 1,352 Fiber (gm) 27 Goal #1 TF tolerance Goal #2 TF to meet at least 75% energy and pro needs Follow-Up By: 03/31/21 Additional Comments F/U: TF goal rate increase/ tolerance, vent status, Na lab /water flush <ARABELLA CASTILLO - Last Filed: 03/31/21 07:39> Assessment and Plan Assessment and plan: I saw and evaluated the patient. I agree with the findings and the plan of care as documented in the Nurse Practitioner's~note, with the following corrections and additions. Hospitalist Physical - Constitutional Vitals: Temp Pulse Resp BP Pulse Ox 100.9 F H 114 H 30 H 121/68 95 03/31/21 07:22 03/31/21 05:49 03/31/21 05:45 03/31/21 05:49 03/31/21 05:45 Results - Labs CBC & Chem 7: 03/30/21 05:36 03/30/21 05:36 Labs: Laboratory Last Values WBC 9.6 K/mm3 (4.5-11.0) 03/30/21 05:36 RBC 4.11 M/mm3 (3.65-5.03) 03/30/21 05:36 Hgb 12.2 gm/dl (11.8-15.2) 03/30/21 05:36 Hct 38.6 % (35.5-45.6) 03/30/21 05:36 MCV 94 fl (84-94) 03/30/21 05:36 MCH 30 pg (28-32) 03/30/21 05:36 MCHC 32 % (32-34) 03/30/21 05:36 RDW 16.7 % (13.2-15.2) H 03/30/21 05:36 Plt Count 183 K/mm3 (140-440) 03/30/21 05:36 Lymph % (Auto) 12.6 % (13.4-35.0) L 03/17/21 04:40 [place] % (Auto) 11.3 % (0.0-7.3) H 03/17/21 04:40 Eos % (Auto) 0.4 % (0.0-4.3) 03/17/21 04:40 Baso % (Auto) 0.8 % (0.0-1.8) 03/17/21 04:40 Lymph # (Auto) 1.8 K/mm3 (1.2-5.4) 03/17/21 04:40 [place] # (Auto) 1.6 K/mm3 (0.0-0.8) H 03/17/21 04:40 Eos # (Auto) 0.1 K/mm3 (0.0-0.4) 03/17/21 04:40 Baso # (Auto) 0.1 K/mm3 (0.0-0.1) 03/17/21 04:40 Add Manual Diff Complete 03/10/21 04:29 Total Counted 100 03/10/21 04:29 Seg Neutrophils % 74.9 % (40.0-70.0) H 03/17/21 04:40 Seg Neuts % (Manual) 94.0 % (40.0-70.0) H 03/10/21 04:29 Band Neutrophils % 0 % 03/10/21 04:29 Lymphocytes % (Manual) 1.0 % (13.4-35.0) L 03/10/21 04:29 Reactive Lymphs % (Man) 0 % 03/10/21 04:29 Monocytes % (Manual) 5.0 % (0.0-7.3) 03/10/21 04:29 Eosinophils % (Manual) 0 % (0.0-4.3) 03/10/21 04:29 Basophils % (Manual) 0 % (0.0-1.8) 03/10/21 04:29 Metamyelocytes % 0 % 03/10/21 04:29 Myelocytes % 0 % 03/10/21 04:29 Promyelocytes % 0 % 03/10/21 04:29 Blast Cells % 0 % 03/10/21 04:29 Nucleated RBC % 3.0 % (0.0-0.9) H 03/10/21 04:29 Seg Neutrophils # 10.5 K/mm3 (1.8-7.7) H 03/17/21 04:40 Seg Neutrophils # Man 19.4 K/mm3 (1.8-7.7) H 03/10/21 04:29 Band Neutrophils # 0.0 K/mm3 03/10/21 04:29 Lymphocytes # (Manual) 0.2 K/mm3 (1.2-5.4) L 03/10/21 04:29 Abs React Lymphs (Man) 0.0 K/mm3 03/10/21 04:29 Monocytes # (Manual) 1.0 K/mm3 (0.0-0.8) H 03/10/21 04:29 Eosinophils # (Manual) 0.0 K/mm3 (0.0-0.4) 03/10/21 04:29 Basophils # (Manual) 0.0 K/mm3 (0.0-0.1) 03/10/21 04:29 Metamyelocytes # 0.0 K/mm3 03/10/21 04:29 Myelocytes # 0.0 K/mm3 03/10/21 04:29 Promyelocytes # 0.0 K/mm3 03/10/21 04:29 Blast Cells # 0.0 K/mm3 03/10/21 04:29 WBC Morphology Not Reportable 03/10/21 04:29 Hypersegmented Neuts Not Reportable 03/10/21 04:29 Hyposegmented Neuts Not Reportable 03/10/21 04:29 Hypogranular Neuts Not Reportable 03/10/21 04:29 Smudge Cells Not Reportable 03/10/21 04:29 Toxic Granulation Not Reportable 03/10/21 04:29 Toxic Vacuolation Not Reportable 03/10/21 04:29 Dohle Bodies Not Reportable 03/10/21 04:29 Pelger-Huet Anomaly Not Reportable 03/10/21 04:29 Mely Rods Not Reportable 03/10/21 04:29 Platelet Estimate Consistent w auto 03/10/21 04:29 Clumped Platelets Not Reportable 03/10/21 04:29 Plt Clumps, EDTA Not Reportable 03/10/21 04:29 Large Platelets Not Reportable 03/10/21 04:29 Giant Platelets Not Reportable 03/10/21 04:29 Platelet Satelliting Not Reportable 03/10/21 04:29 Plt Morphology Comment Not Reportable 03/10/21 04:29 RBC Morphology Normal 03/10/21 04:29 Dimorphic RBCs Not Reportable 03/10/21 04:29 Polychromasia Not Reportable 03/10/21 04:29 Hypochromasia Not Reportable 03/10/21 04:29 Poikilocytosis Not Reportable 03/10/21 04:29 Anisocytosis Not Reportable 03/10/21 04:29 Microcytosis Not Reportable 03/10/21 04:29 Macrocytosis Not Reportable 03/10/21 04:29 Spherocytes Not Reportable 03/10/21 04:29 Pappenheimer Bodies Not Reportable 03/10/21 04:29 Sickle Cells Not Reportable 03/10/21 04:29 Target Cells Not Reportable 03/10/21 04:29 Tear Drop Cells Not Reportable 03/10/21 04:29 Ovalocytes Not Reportable 03/10/21 04:29 Helmet Cells Not Reportable 03/10/21 04:29 [place] Bodies Not Reportable 03/10/21 04:29 [place] Rings Not Reportable 03/10/21 04:29 [place] Cells Not Reportable 03/10/21 04:29 Bite Cells Not Reportable 03/10/21 04:29 Crenated Cell Not Reportable 03/10/21 04:29 Elliptocytes Not Reportable 03/10/21 04:29 Acanthocytes (Spur) Not Reportable 03/10/21 04:29 Rouleaux Not Reportable 03/10/21 04:29 Hemoglobin C Crystals Not Reportable 03/10/21 04:29 Schistocytes Not Reportable 03/10/21 04:29 Malaria parasites Not Reportable 03/10/21 04:29 [place] Bodies Not Reportable 03/10/21 04:29 Hem Pathologist Commnt No 03/10/21 04:29 PT 13.0 Sec. (12.2-14.9) 03/29/21 04:50 INR 0.88 (0.87-1.13) 03/29/21 04:50 APTT 28.0 Sec. (24.2-36.6) 03/08/21 20:24 D-Dimer 1359.12 ng/mlDDU (0-234) H 03/17/21 04:40 ABG pH 7.431 pH Units (7.350-7.450) 03/30/21 15:00 POC ABG pCO2 71.9 mmHg (32.0-48.0) H 03/12/21 21:54 ABG pCO2 53.7 mm Hg 03/30/21 15:00 POC ABG pO2 53.6 mmHg (83-108) L 03/12/21 21:54 ABG pO2 67.2 mm Hg (80.0-90.0) L 03/30/21 15:00 POC ABG HCO3 30.0 03/12/21 21:54 ABG HCO3 34.9 mmol/L (20.0-26.0) H 03/30/21 15:00 ABG O2 Saturation 95.4 % (95.0-99.0) 03/30/21 15:00 ABG O2 Content 15.3 (0.0-44) 03/30/21 15:00 POC ABG Base Excess 0.5 03/12/21 21:54 ABG Base Excess 9.1 mmol/L (-2.0-3.0) H 03/30/21 15:00 ABG Hemoglobin 11.6 gm/dl (14.0-18.0) L 03/30/21 15:00 ABG Oxyhemoglobin 84.8 (94-98) L 03/12/21 21:54 ABG Carboxyhemoglobin 1.8 % (0.0-5.0) 03/30/21 15:00 ABG Methemoglobin 0.7 % (0.0-1.5) 03/30/21 15:00 ABG Sodium 134.2 mmol/L (136.0-145.0) L 03/12/21 21:54 ABG Potassium 4.9 mmol/L (3.40-4.50) H 03/12/21 21:54 ABG Chloride 99.0 mmol/L (98-107) 03/12/21 21:54 ABG Glucose 306 mg/dL (65-95) H 03/12/21 21:54 Oxyhemoglobin 93.0 % (95.0-99.0) L 03/30/21 15:00 Carboxyhemoglobin 0.6 (0.5-1.5) 03/12/21 21:54 FiO2 40 % 03/30/21 15:00 FiO2 % 50.0 03/12/21 21:54 Sodium 140 mmol/L (137-145) 03/30/21 05:36 Potassium 4.5 mmol/L (3.6-5.0) 03/30/21 05:36 Chloride 101.3 mmol/L (98-107) 03/30/21 05:36 Carbon Dioxide 29 mmol/L (22-30) 03/30/21 05:36 Anion Gap 14 mmol/L 03/30/21 05:36 BUN 11 mg/dL (9-20) 03/30/21 05:36 Creatinine 0.5 mg/dL (0.8-1.3) L 03/30/21 05:36 Estimated GFR > 60 ml/min 03/30/21 05:36 BUN/Creatinine Ratio 22 % 03/30/21 05:36 Glucose 127 mg/dL (75-100) H 03/30/21 05:36 POC Glucose 180 mg/dL (70-105) H 03/31/21 05:44 Lactic Acid 1.90 mmol/L (0.7-2.0) 03/08/21 23:51 Calcium 9.0 mg/dL (8.4-10.2) 03/30/21 05:36 Phosphorus TNR 03/28/21 07:14 Magnesium TNR 03/28/21 07:14 Ferritin 976.4 ng/mL (30.0-300.0) H 03/15/21 04:00 Total Bilirubin 0.20 mg/dL (0.1-1.2) 03/12/21 08:03 AST 10 units/L (5-40) 03/12/21 08:03 ALT 16 units/L (7-56) 03/12/21 08:03 Alkaline Phosphatase 77 units/L (35-129) 03/12/21 08:03 Lactate Dehydrogenase 630 units/L (91-180) H 03/15/21 06:06 C-Reactive Protein 0.40 mg/dL (0.00-1.30) 03/17/21 04:40 NT-Pro-B Natriuret Pep 1053 pg/mL (0-900) H 03/08/21 20:24 Total Protein 6.0 g/dL (6.3-8.2) L 03/12/21 08:03 Albumin 2.9 g/dL (3.9-5) L 03/12/21 08:03 Albumin/Globulin Ratio 0.9 % 03/12/21 08:03 Triglycerides 305 mg/dL (2-149) H 03/22/21 07:26 Procalcitonin 0.05 ng/mL (<0.15) 03/17/21 04:40 Arterial Blood Glucose 306 mg/dL (65-95) H 03/12/21 21:54 Arterial Blood Ionized Calcium 5.0 mg/dL (4.6-5.3) 03/12/21 21:54 Urine Color Yellow (Yellow) 03/09/21 04:10 Urine Turbidity Slightly-cloudy (Clear) 03/09/21 04:10 Urine pH 5.0 (5.0-7.0) 03/09/21 04:10 Ur Specific [place] 1.041 (1.003-1.030) H 03/09/21 04:10 Urine Protein 100 mg/dl mg/dL (Negative) 03/09/21 04:10 Urine Glucose (UA) Neg mg/dL (Negative) 03/09/21 04:10 Urine Ketones Neg mg/dL (Negative) 03/09/21 04:10 Urine Blood Mod (Negative) 03/09/21 04:10 Urine Nitrite Neg (Negative) 03/09/21 04:10 Urine Bilirubin Neg (Negative) 03/09/21 04:10 Urine Urobilinogen 2.0 mg/dL (<2.0) 03/09/21 04:10 Ur Leukocyte Esterase Neg (Negative) 03/09/21 04:10 Urine WBC (Auto) 4.0 /HPF (0.0-6.0) 03/09/21 04:10 Urine RBC (Auto) 1.0 /HPF (0.0-6.0) 03/09/21 04:10 Urine Bacteria (Auto) 1+ /HPF (Negative) 03/09/21 04:10 Urine Mucus Few /HPF 03/09/21 04:10 Coronavirus (PCR) Positive (Negative) A 03/09/21 08:00 Miscellaneous Test Flexitest 1 03/16/21 13:14 Good/IV: Voiding Method Indwelling Catheter Active Medications - Current Medications Current Medications: Generic Name Dose Route Start Last Admin Trade Name Freq PRN Reason Stop Dose Admin Acetaminophen 650 mg 03/09/21 01:26 03/28/21 05:15 Acetaminophen 325 Mg Tab PO 650 mg Q4H PRN Administration Pain MILD(1-3)/Fever >100.5/RAYO Albuterol 2.5 mg 03/09/21 01:26 03/18/21 21:06 Albuterol 2.5 Mg/3 Ml Nebu IH 2.5 mg Q4HRT PRN Administration Shortness Of Breath Amlodipine Besylate 5 mg 03/30/21 10:00 03/30/21 09:33 Amlodipine 5 Mg Tab PO 5 mg QDAY BLANCA Administration Arformoterol Tartrate 15 mcg 03/11/21 20:00 03/30/21 20:09 Arformoterol 15 Mcg/2 Ml Nebu IH Not Given Q12HRT BLANCA Ascorbic Acid 500 mg 03/10/21 14:00 03/30/21 21:03 Ascorbic Acid 500 Mg Tab PO 500 mg BID BLANCA Administration Bisacodyl 10 mg 03/26/21 13:43 03/26/21 13:51 Bisacodyl 10 Mg Rect Supp MI 10 mg QDAY PRN Administration Constipation Budesonide 0.25 mg 03/11/21 20:00 03/30/21 20:09 Budesonide 0.25 Mg/2 Ml Nebu IH Not Given Q12HRT BLANCA Chlordiazepoxide HCl 75 mg 03/22/21 18:00 03/31/21 06:06 Chlordiazepoxide 25 Mg Cap PO 75 mg Q6HR BLANCA Administration Dextrose 0 ml 03/20/21 10:52 Dextrose 10% *Hypoglycemia IV PRN PRN Hypoglycemia Doxazosin Mesylate 1 mg 03/23/21 14:00 03/30/21 09:33 Doxazosin 1 Mg Tab PO 1 mg QDAY BLANCA Administration Enoxaparin Sodium 60 mg 03/29/21 22:00 03/30/21 21:03 Enoxaparin 60 Mg/0.6 Ml Inj SUB-Q 60 mg Q12HR BLANCA Administration Famotidine 20 mg 03/12/21 22:00 03/30/21 21:02 Famotidine 20 Mg Tab FEEDTUBE 20 mg BID BLANCA Administration Furosemide 20 mg 03/30/21 18:00 03/30/21 18:36 Furosemide 20 Mg/2 Ml Inj IV 04/04/21 17:59 20 mg QDAY BLANCA Administration Hydralazine HCl 50 mg 03/23/21 14:26 03/31/21 05:49 Hydralazine 25 Mg Tab PO 50 mg Q8HR BLANCA Administration Hydrophilic Ointment 1 applic 03/10/21 15:39 Lip Therapy Vaseline TP Q2HR PRN Dry Lips Fentanyl Citrate 2,000 mcg in 100 mls @ 5.897 mls/hr 03/10/21 17:00 03/30/21 21:33 Fentanyl Drip Premix IV 1.5 mcg/kg/hr TITR BLANCA 8.845 mls/hr Administration Protocol 1 MCG/KG/HR Propofol 1,000 mg in 100 mls @ 3.507 mls/hr 03/11/21 17:00 03/22/21 18:02 Diprivan 10 Mg/Ml IV 0 mcg/kg/min TITR BLANCA 0 mls/hr Titration Protocol 5 MCG/KG/MIN Insulin Glargine 15 units 03/29/21 22:00 03/30/21 21:07 Insulin Glargine 100 Units/Ml SUB-Q 15 units QHS BLANCA Administration Insulin Human Lispro 0 unit 03/11/21 18:00 03/31/21 05:50 Insulin Lispro 100 Unit/Ml SUB-Q 3 unit Q6HR BLANCA Administration Protocol Labetalol HCl 10 mg 03/12/21 21:13 03/21/21 16:54 Labetalol 20 Mg/4 Ml Inj IV 10 mg Q6H PRN Administration Blood Pressure Metoclopramide HCl 5 mg 03/29/21 22:00 03/31/21 05:50 Metoclopramide 10 Mg/2 Ml Inj IV 03/31/21 21:59 5 mg Q8HR BLANCA Administration Metoprolol Tartrate 12.5 mg 03/21/21 22:00 03/30/21 21:02 Metoprolol Tartrate 25 Mg Tab PO 12.5 mg BID BLANCA Administration Midazolam HCl 2 mg 03/15/21 08:49 03/31/21 07:11 Midazolam 2 Mg/2 Ml Inj IV 2 mg Q2H PRN Administration VENT SYNCHRONY Multi-Ingred Cream/Lotion/Oil/Oint 1 applic 03/10/21 15:39 Mineral Oil/Petrolatum, White Ophth Oint 3.5 Gm OU Q4HR PRN Dry Eye(s) Ondansetron HCl 4 mg 03/09/21 01:26 Ondansetron 4 Mg/2 Ml Inj IV Q8H PRN Nausea And Vomiting Oxycodone HCl 5 mg 03/30/21 12:14 Oxycodone 5 Mg Tab PO Q6H PRN Pain, Moderate (4-6) Phenyleph/Shark Oil/Min Oil/Petrol 1 applic 03/22/21 17:35 03/29/21 03:59 Pe/Mo/Pet,Wh 10 Applic/28 Gm Tube MI 1 applic Q6HR PRN Administration Hemorrhoids Prednisone 10 mg 03/29/21 10:00 03/30/21 09:33 Prednisone 10 Mg Tab PO 10 mg DAILY BLANCA Administration Quetiapine Fumarate 300 mg 03/21/21 22:00 03/30/21 21:02 Quetiapine 100 Mg Tab PO 300 mg BID BLANCA Administration Senna/Docusate Sodium 1 tab 03/10/21 22:00 03/30/21 21:03 Sennosides/Docusate Sodium 8.6/50 Mg Tab FEEDTUBE 1 tab BID BLANCA Administration Sodium Chloride 10 ml 03/09/21 10:00 03/30/21 21:03 Sodium Chloride 0.9% 10 Ml Flush Syringe IV 10 ml BID BLANCA Administration Sodium Chloride 10 ml 03/09/21 01:26 Sodium Chloride 0.9% 10 Ml Flush Syringe IV PRN PRN LINE FLUSH Sodium Chloride 10 ml 03/20/21 09:48 Sodium Chloride 0.9% 50 Ml Ivpb IV PRN PRN FLUSH Zinc Sulfate 220 mg 03/10/21 14:00 03/30/21 21:02 Zinc Sulfate 220 Mg Cap PO 220 mg BID BLANCA Administration Nutrition/Malnutrition Assess - Dietary Evaluation Nutrition/Malnutrition Findings: Nutrition Notes Start: 03/09/21 08:49 Freq: Status: Active Protocol: Document 03/27/21 14:48 [facility] (Rec: 03/27/21 15:01 COALL [id number]) Nutrition Notes Initial or Follow up Reassessment Current Diagnosis Diabetes,Sepsis,Hypertension, Respiratory Failure Other Pertinent Diagnosis COVID-19, Bilateral Pneumonia. Current Diet TF-Glucerna 1.2 at 40 ml/hr Labs/Tests BG 150 Na 136 (Na lab been <145 since 03/24) Pertinent Medications Solumedrol Height 5 ft 11 in Weight 122 kg [place] Body Weight (kg) 78.18 BMI 37.5 Weight Status Obese Subjective/Other Information Pt remains on vent support, but no longer receives propofol. RN informed of intent to increase TF goal rate. Percent of energy/protein needs met: 47% energy 45% pro Burn Absent Trauma Absent #1 Nutrition Diagnosis Inadequate oral intake Diagnosis Progress(for reassessment Continues documentation) Is patient on ventilator? Yes Is Patient Ambulatory and/or Out of Bed No [facility] [phone] Calculation Used for Recommendations 70-80% energy needs Additional Notes Energy needs: 7841-2776 kcal/ day Pro needs 1.3g/kg adjBW: 130g/ day Fluid needs 1ml/kcal Nutrition Intervention Nutrition Support: Increase TF goal rate to 70ml/ hr with 110ml water flush q4h. Kcal 2,016 Protein (gm) 101 Carbohydrates (gm) 192 Fat (gm) 101 Fluid (mL) 1,352 Fiber (gm) 27 Goal #1 TF tolerance Goal #2 TF to meet at least 75% energy and pro needs Follow-Up By: 03/31/21 Additional Comments F/U: TF goal rate increase/ tolerance, vent status, Na lab /water flush
[2021-03-30] MEDS ORDERED: oxyCODONE 5 MG TAB PO PRN (12:14)
--- NOTE | 2021-03-30 13:33 | Progress Note ---
Assessment and Plan Cultures: SARS CoV2 PCR: positive 03/08/2021 blood culture: no growth 03/10/2021 sputum culture: Usual respiratory marlyn 03/16/2021 blood culture: In process 03/18/2021 sputum culture: Stenotrophomonas A/P: 61-year-old male with diabetes, hypertension admitted to the hospital with complaints of shortness of breath and feeling weak for the last 1 week: #Sepsis secondary to bilateral pneumonia: secondary to COVID-19. Elevated inflammatory markers. WBC 22.6, creatinine 1.3, ferritin 877, CRP 18.0, LDH 624, procalcitonin 0.18. D-dimer >10k. CTA negative for pulmonary embolism, severe patchy groundglass opacities. #New fever: probably COVID related. #Acute hypoxic respiratory failure: initially required BiPAP, now intubated, on the vent. #DM #HTN Recs: -Completed Bactrim for Stenotrophomonas -completed IV remdesivir -s/p Actemra 03/10/2021 -prophylactic anticoagulation based on d-dimer per hospital protocol -s/p trach/PEG Nayan Goins MD [facility] O: [phone] F: [phone] Subjective Date of service: 03/30/21 Principal diagnosis: COVID-19 infection; DM II; Bilateral pneumonia; Obesity; HTN Interval history: Afebrile, normal white count. No acute issues Objective - Exam Narrative Exam: Physical exam deferred to reduce risk of transmission of COVID-19. Please refer to primary team's note. - Constitutional Vitals: Vital Signs Temp Pulse Resp BP Pulse Ox 99.5 F 108 H 24 115/66 97 03/30/21 11:51 03/30/21 11:36 03/30/21 11:00 03/30/21 11:36 03/30/21 11:36 Temperature -Last 24 Hours Temperature 99.5 F Temperature 99.4 F Temperature 99.6 F Temperature 98.7 F Temperature 98.3 F Temperature 99.7 F Temperature 99.7 F Temperature 98.2 F Temperature 169 F - Labs CBC & Chem 7: 03/30/21 05:36 03/30/21 05:36 Labs: Abnormal lab results 03/29/21 03/29/21 03/30/21 Range/Units 18:02 21:42 00:01 RDW (13.2-15.2) % Creatinine (0.8-1.3) mg/dL Glucose (75-100) mg/dL POC Glucose 173 H 184 H 161 H (70-105) mg/dL 03/30/21 03/30/21 03/30/21 Range/Units 05:36 05:36 06:03 RDW 16.7 H (13.2-15.2) % Creatinine 0.5 L (0.8-1.3) mg/dL Glucose 127 H (75-100) mg/dL POC Glucose 130 H (70-105) mg/dL 03/30/21 Range/Units 11:32 RDW (13.2-15.2) % Creatinine (0.8-1.3) mg/dL Glucose (75-100) mg/dL POC Glucose 183 H (70-105) mg/dL
--- NOTE | 2021-03-30 14:07 | Progress Note ---
Assessment and Plan Acute hypoxemic respiratory failure, on continuous noninvasive ventilation COVID-19 infection Bilateral pneumonia History of diabetes Obesity Hypertension Leukocytosis Possible venous thromboembolic phenomena with significantly elevated D-dimers DM II Elevated serum inflammatory markers to include CRP levels, ferritin and LDH - discontinue isolation for COVID-19 - placed on SBT - ABG after 2 hours - started on Reglan re: high residuals - Lasix 20 mg IV qd X 3-5 days while following electrolytes - CXR reviewed; trach in good position - LTAC evaluation at this point - continue care as below otherwise; - continue Daily SAT and SBT assessment as tolerated - continue to wean supplemental oxygen for target O2 sat's > 90% acutely - VAP bundle addressed - continue lung protective strategies - continue bronchodilators with pulmonary hygiene per RT - wean per pulmonary driven protocols otherwise - continue accuchecks with glycemic control per SSI (While critically ill target blood glucose of 140-180 mg/dL; avoid hypoglycemia) - sedation prn for target RASS 0 to -1 - avoid nephrotoxins, renally dose all medications - avoid benzodiazepine's, reduce the possibility of delirium - AB's per ID rec's - prn analgesia per pain score - Maintenance of sleep-wake cycle, avoid delirium - G.I. & VTE prophylaxis - PT/OT/ROM exercises - mobility protocols for pressure ulcer prophylaxis - Monitor hemodynamics closely - continue other care per attending / other consultants - discharge planning ongoing concurrently COVID SPECIFIC INTERVENTIONS - Remdesivir as per ID/Pulmonary developed protocols (received) - continue systemic steroids for severe COVID-19 infection empirically (Decadron) - follow repeat COVID tests results - zinc and vitamin C supplementation - Monitor inflammatory markers per facility protocol - ferritin, Ddimer, CRP - therapeutic anticoagulation per system Protocol based on d-dimer and clinical considerations (treatment dose) - Continue contact and airborne isolation .... Re-evaluate in am & prn CONDITION: CRITICAL PROGNOSIS: GUARDED CODE STATUS: FULL CODE The high probability of a clinically significant, sudden or life-threatening deterioration of the [respiratory, cardiovascular & hematologic] system(s) required my full and direct attention, intervention and personal management. The aggregate critical care time was [32] minutes without overlap. Time includes spent on; [x] Data Review and interpretation [x] Patient assessment and monitoring of vital signs [x] Documentation [x] Medication orders and management Subjective Date of service: 03/30/21 Principal diagnosis: COVID-19 infection; DM II; Bilateral pneumonia; Obesity; HTN Interval history: Patient is seen today for: Acute hypoxemic respiratory failure; COVID-19 infection; DM II; Bilateral pneumonia; Obesity; HTN Seen and examined at bedside; 24hour events reviewed; nursing and respiratory care staff consulted; no adverse overnight events reported to me; resting in bed; remains on MVS; s/p trach and PEG; no emesis or overt aspiration; afebrile Objective Vital Signs - 12hr 03/30/21 03/30/21 03/30/21 02:16 02:20 02:30 Temperature Pulse Rate 97 H 97 H 97 H Pulse Rate [ From Monitor] Respiratory 14 13 Rate Blood Pressure 122/77 117/69 O2 Sat by Pulse 98 98 Oximetry O2 Sat by Pulse Oximetry [ Assessment] 03/30/21 03/30/21 03/30/21 02:46 03:00 03:16 Temperature Pulse Rate 99 H 97 H 104 H Pulse Rate [ From Monitor] Respiratory 13 12 18 Rate Blood Pressure 117/69 136/80 136/80 O2 Sat by Pulse 97 97 96 Oximetry O2 Sat by Pulse Oximetry [ Assessment] 03/30/21 03/30/21 03/30/21 03:30 03:46 04:00 Temperature 98.7 F Pulse Rate 101 H 101 H 99 H Pulse Rate [ From Monitor] Respiratory 16 16 14 Rate Blood Pressure 127/74 127/74 129/75 O2 Sat by Pulse 96 96 96 Oximetry O2 Sat by Pulse Oximetry [ Assessment] 03/30/21 03/30/21 03/30/21 04:13 04:16 04:19 Temperature Pulse Rate 98 H 103 H Pulse Rate [ From Monitor] Respiratory 18 Rate Blood Pressure 129/75 129/75 O2 Sat by Pulse 98 95 Oximetry O2 Sat by Pulse 97 Oximetry [ Assessment] 03/30/21 03/30/21 03/30/21 04:30 04:46 05:00 Temperature Pulse Rate 101 H 101 H 105 H Pulse Rate [ From Monitor] Respiratory 16 17 19 Rate Blood Pressure 148/73 148/73 193/97 O2 Sat by Pulse 98 96 96 Oximetry O2 Sat by Pulse Oximetry [ Assessment] 03/30/21 03/30/21 03/30/21 05:16 05:30 05:46 Temperature Pulse Rate 113 H 121 H 116 H Pulse Rate [ From Monitor] Respiratory 31 H 40 H 33 H Rate Blood Pressure 193/97 194/104 194/104 O2 Sat by Pulse 96 96 92 Oximetry O2 Sat by Pulse Oximetry [ Assessment] 03/30/21 03/30/21 03/30/21 06:00 06:16 06:30 Temperature Pulse Rate 117 H 117 H 113 H Pulse Rate [ From Monitor] Respiratory 35 H 35 H 24 Rate Blood Pressure 184/97 184/97 158/51 O2 Sat by Pulse 91 93 93 Oximetry O2 Sat by Pulse Oximetry [ Assessment] 03/30/21 03/30/21 03/30/21 06:46 07:00 07:15 Temperature 99.6 F Pulse Rate 110 H 109 H 110 H Pulse Rate [ From Monitor] Respiratory 21 18 Rate Blood Pressure 158/51 143/80 143/80 O2 Sat by Pulse 94 96 98 Oximetry O2 Sat by Pulse Oximetry [ Assessment] 03/30/21 03/30/21 03/30/21 07:16 07:29 07:30 Temperature Pulse Rate 109 H 109 H Pulse Rate [ From Monitor] Respiratory 19 19 Rate Blood Pressure 143/80 139/82 O2 Sat by Pulse 98 97 Oximetry O2 Sat by Pulse 97 Oximetry [ Assessment] 03/30/21 03/30/21 03/30/21 07:46 08:00 08:16 Temperature 99.4 F Pulse Rate 109 H 109 H 113 H Pulse Rate [ 110 H From Monitor] Respiratory 21 19 30 H Rate Blood Pressure 139/82 138/78 138/78 O2 Sat by Pulse 98 98 98 Oximetry O2 Sat by Pulse Oximetry [ Assessment] 03/30/21 03/30/21 03/30/21 08:30 08:46 09:00 Temperature Pulse Rate 121 H 123 H 116 H Pulse Rate [ From Monitor] Respiratory 32 H 44 H 12 Rate Blood Pressure 190/96 190/96 140/64 O2 Sat by Pulse 98 96 97 Oximetry O2 Sat by Pulse Oximetry [ Assessment] 03/30/21 03/30/21 03/30/21 09:16 09:30 09:33 Temperature Pulse Rate 112 H 111 H 111 H Pulse Rate [ From Monitor] Respiratory 19 19 Rate Blood Pressure 140/64 135/66 135/66 O2 Sat by Pulse 97 97 Oximetry O2 Sat by Pulse Oximetry [ Assessment] 03/30/21 03/30/21 03/30/21 09:46 10:00 10:16 Temperature Pulse Rate 110 H 109 H 109 H Pulse Rate [ From Monitor] Respiratory 13 17 17 Rate Blood Pressure 135/66 119/65 119/65 O2 Sat by Pulse 98 97 97 Oximetry O2 Sat by Pulse Oximetry [ Assessment] 03/30/21 03/30/21 03/30/21 10:30 10:46 11:00 Temperature Pulse Rate 108 H 106 H 108 H Pulse Rate [ From Monitor] Respiratory 20 17 24 Rate Blood Pressure 111/57 111/57 100/60 O2 Sat by Pulse 97 97 97 Oximetry O2 Sat by Pulse Oximetry [ Assessment] 03/30/21 03/30/21 03/30/21 11:36 11:51 13:52 Temperature 99.5 F Pulse Rate 108 H 102 H Pulse Rate [ From Monitor] Respiratory Rate Blood Pressure 115/66 111/64 O2 Sat by Pulse 97 Oximetry O2 Sat by Pulse Oximetry [ Assessment] Constitutional: agitated, appears uncomfortable Eyes: non-icteric ENT: oropharynx moist, other (+ midline tracheostomy) Neck: supple, no lymphadenopathy, no JVD, other (large circumference) Effort: very labored Ascultation: Bilateral: diminished breath sounds, rhonchi Percussion: Bilateral: not dull Cardiovascular: regular rate and rhythm, other (tachycardia, S1,S2) Gastrointestinal: normoactive bowel sounds Integumentary: normal Extremities: no cyanosis, pulses normal, no ischemia or petechiae, edema Neurologic: pupils equal and round, unable to assess, other (sedated) Psychiatric: other (unable to assess re: AMS) CBC and BMP: 03/30/21 05:36 03/30/21 05:36 ABG, PT/INR, D-dimer: ABG ABG pH 7.353 pH Units (7.350-7.450) 03/25/21 12:35 POC ABG pCO2 71.9 mmHg (32.0-48.0) H 03/12/21 21:54 ABG pCO2 61.9 mm Hg 03/25/21 12:35 POC ABG pO2 53.6 mmHg (83-108) L 03/12/21 21:54 ABG pO2 100.5 mm Hg (80.0-90.0) H 03/25/21 12:35 POC ABG HCO3 30.0 03/12/21 21:54 ABG O2 Saturation 97.3 % (95.0-99.0) 03/25/21 12:35 PT/INR, D-dimer PT 13.0 Sec. (12.2-14.9) 03/29/21 04:50 INR 0.88 (0.87-1.13) 03/29/21 04:50 D-Dimer 1359.12 ng/mlDDU (0-234) H 03/17/21 04:40 Abnormal lab findings: Abnormal Labs 03/08/21 03/08/21 03/08/21 20:24 20:24 20:24 WBC 22.6 H RBC 5.44 H Hgb 15.7 H Hct 49.2 H MCV MCHC RDW Plt Count Lymph % (Auto) [place] % (Auto) [place] # (Auto) Seg Neutrophils % Seg Neuts % (Manual) 83.0 H Lymphocytes % (Manual) 9.0 L Monocytes % (Manual) 8.0 H Nucleated RBC % Seg Neutrophils # Seg Neutrophils # Man 18.8 H Lymphocytes # (Manual) Monocytes # (Manual) 1.8 H PT 16.1 H INR 1.17 H D-Dimer > 34463 H ABG pH POC ABG pCO2 POC ABG pO2 ABG pO2 ABG HCO3 ABG O2 Saturation ABG Base Excess ABG Hemoglobin ABG Oxyhemoglobin ABG Sodium ABG Potassium ABG Glucose Oxyhemoglobin Sodium 136 L Potassium Chloride 93.9 L Carbon Dioxide BUN 29 H Creatinine Glucose 208 H POC Glucose Lactic Acid Phosphorus Magnesium Ferritin Lactate Dehydrogenase 624 H C-Reactive Protein 18.00 H NT-Pro-B Natriuret Pep 1053 H Total Protein Albumin Triglycerides Arterial Blood Glucose Ur Specific [place] Coronavirus (PCR) 03/08/21 03/08/21 03/09/21 20:24 20:24 04:10 WBC RBC Hgb Hct MCV MCHC RDW Plt Count Lymph % (Auto) [place] % (Auto) [place] # (Auto) Seg Neutrophils % Seg Neuts % (Manual) Lymphocytes % (Manual) Monocytes % (Manual) Nucleated RBC % Seg Neutrophils # Seg Neutrophils # Man Lymphocytes # (Manual) Monocytes # (Manual) PT INR D-Dimer ABG pH POC ABG pCO2 POC ABG pO2 ABG pO2 ABG HCO3 ABG O2 Saturation ABG Base Excess ABG Hemoglobin ABG Oxyhemoglobin ABG Sodium ABG Potassium ABG Glucose Oxyhemoglobin Sodium Potassium Chloride Carbon Dioxide BUN Creatinine Glucose POC Glucose Lactic Acid 2.10 H* Phosphorus Magnesium Ferritin 877.5 H Lactate Dehydrogenase C-Reactive Protein NT-Pro-B Natriuret Pep Total Protein Albumin Triglycerides Arterial Blood Glucose Ur Specific [place] 1.041 H Coronavirus (PCR) 03/09/21 03/09/21 03/09/21 07:46 08:00 13:01 WBC RBC Hgb Hct MCV MCHC RDW Plt Count Lymph % (Auto) [place] % (Auto) [place] # (Auto) Seg Neutrophils % Seg Neuts % (Manual) Lymphocytes % (Manual) Monocytes % (Manual) Nucleated RBC % Seg Neutrophils # Seg Neutrophils # Man Lymphocytes # (Manual) Monocytes # (Manual) PT INR D-Dimer ABG pH POC ABG pCO2 POC ABG pO2 ABG pO2 ABG HCO3 ABG O2 Saturation ABG Base Excess ABG Hemoglobin ABG Oxyhemoglobin ABG Sodium ABG Potassium ABG Glucose Oxyhemoglobin Sodium Potassium Chloride Carbon Dioxide BUN Creatinine Glucose POC Glucose 191 H 182 H Lactic Acid Phosphorus Magnesium Ferritin Lactate Dehydrogenase C-Reactive Protein NT-Pro-B Natriuret Pep Total Protein Albumin Triglycerides Arterial Blood Glucose Ur Specific [place] Coronavirus (PCR) Positive A 03/09/21 03/09/21 03/09/21 15:19 17:48 18:10 WBC RBC Hgb Hct MCV MCHC RDW Plt Count Lymph % (Auto) [place] % (Auto) [place] # (Auto) Seg Neutrophils % Seg Neuts % (Manual) Lymphocytes % (Manual) Monocytes % (Manual) Nucleated RBC % Seg Neutrophils # Seg Neutrophils # Man Lymphocytes # (Manual) Monocytes # (Manual) PT INR D-Dimer ABG pH POC ABG pCO2 POC ABG pO2 ABG pO2 47.3 L ABG HCO3 26.3 H ABG O2 Saturation 83.7 L ABG Base Excess ABG Hemoglobin ABG Oxyhemoglobin ABG Sodium ABG Potassium ABG Glucose Oxyhemoglobin 82.1 L Sodium Potassium Chloride Carbon Dioxide BUN 29 H Creatinine Glucose 214 H POC Glucose 194 H Lactic Acid Phosphorus Magnesium Ferritin Lactate Dehydrogenase C-Reactive Protein NT-Pro-B Natriuret Pep Total Protein Albumin 3.4 L Triglycerides Arterial Blood Glucose Ur Specific [place] Coronavirus (PCR) 03/09/21 03/10/21 03/10/21 20:40 04:29 04:29 WBC 20.6 H RBC 5.07 H Hgb Hct 46.2 H MCV MCHC RDW Plt Count Lymph % (Auto) [place] % (Auto) [place] # (Auto) Seg Neutrophils % Seg Neuts % (Manual) 94.0 H Lymphocytes % (Manual) 1.0 L Monocytes % (Manual) Nucleated RBC % 3.0 H Seg Neutrophils # Seg Neutrophils # Man 19.4 H Lymphocytes # (Manual) 0.2 L Monocytes # (Manual) 1.0 H PT INR D-Dimer ABG pH POC ABG pCO2 POC ABG pO2 ABG pO2 ABG HCO3 ABG O2 Saturation ABG Base Excess ABG Hemoglobin ABG Oxyhemoglobin ABG Sodium ABG Potassium ABG Glucose Oxyhemoglobin Sodium Potassium Chloride Carbon Dioxide BUN 29 H Creatinine Glucose 188 H POC Glucose 176 H Lactic Acid Phosphorus Magnesium Ferritin Lactate Dehydrogenase C-Reactive Protein NT-Pro-B Natriuret Pep Total Protein Albumin 3.3 L Triglycerides Arterial Blood Glucose Ur Specific [place] Coronavirus (PCR) 03/10/21 03/10/21 03/10/21 05:22 10:27 15:25 WBC RBC Hgb Hct MCV MCHC RDW Plt Count Lymph % (Auto) [place] % (Auto) [place] # (Auto) Seg Neutrophils % Seg Neuts % (Manual) Lymphocytes % (Manual) Monocytes % (Manual) Nucleated RBC % Seg Neutrophils # Seg Neutrophils # Man Lymphocytes # (Manual) Monocytes # (Manual) PT INR D-Dimer ABG pH 7.488 H 7.488 H POC ABG pCO2 POC ABG pO2 ABG pO2 47.7 L 50.5 L ABG HCO3 ABG O2 Saturation 86.2 L 87.9 L ABG Base Excess ABG Hemoglobin ABG Oxyhemoglobin ABG Sodium ABG Potassium ABG Glucose Oxyhemoglobin 84.6 L 86.2 L Sodium Potassium Chloride Carbon Dioxide BUN Creatinine Glucose POC Glucose 155 H Lactic Acid Phosphorus Magnesium Ferritin Lactate Dehydrogenase C-Reactive Protein NT-Pro-B Natriuret Pep Total Protein Albumin Triglycerides Arterial Blood Glucose Ur Specific [place] Coronavirus (PCR) 03/10/21 03/10/21 03/11/21 18:10 18:55 00:07 WBC RBC Hgb Hct MCV MCHC RDW Plt Count Lymph % (Auto) [place] % (Auto) [place] # (Auto) Seg Neutrophils % Seg Neuts % (Manual) Lymphocytes % (Manual) Monocytes % (Manual) Nucleated RBC % Seg Neutrophils # Seg Neutrophils # Man Lymphocytes # (Manual) Monocytes # (Manual) PT INR D-Dimer ABG pH 7.343 L POC ABG pCO2 POC ABG pO2 ABG pO2 60.4 L ABG HCO3 27.9 H ABG O2 Saturation 88.7 L ABG Base Excess ABG Hemoglobin ABG Oxyhemoglobin ABG Sodium ABG Potassium ABG Glucose Oxyhemoglobin 86.9 L Sodium Potassium Chloride Carbon Dioxide BUN Creatinine Glucose POC Glucose 187 H 139 H Lactic Acid Phosphorus Magnesium Ferritin Lactate Dehydrogenase C-Reactive Protein NT-Pro-B Natriuret Pep Total Protein Albumin Triglycerides Arterial Blood Glucose Ur Specific [place] Coronavirus (PCR) 03/11/21 03/11/21 03/11/21 02:09 04:28 08:06 WBC RBC Hgb Hct MCV MCHC RDW Plt Count Lymph % (Auto) [place] % (Auto) [place] # (Auto) Seg Neutrophils % Seg Neuts % (Manual) Lymphocytes % (Manual) Monocytes % (Manual) Nucleated RBC % Seg Neutrophils # Seg Neutrophils # Man Lymphocytes # (Manual) Monocytes # (Manual) PT INR D-Dimer ABG pH 7.277 L POC ABG pCO2 55.9 H POC ABG pO2 54.4 L ABG pO2 ABG HCO3 ABG O2 Saturation ABG Base Excess ABG Hemoglobin ABG Oxyhemoglobin 83.0 L ABG Sodium ABG Potassium 4.8 H ABG Glucose 180 H Oxyhemoglobin Sodium Potassium Chloride Carbon Dioxide BUN 38 H Creatinine Glucose 249 H POC Glucose 278 H Lactic Acid Phosphorus Magnesium Ferritin Lactate Dehydrogenase C-Reactive Protein NT-Pro-B Natriuret Pep Total Protein Albumin 3.2 L Triglycerides Arterial Blood Glucose 180 H Ur Specific [place] Coronavirus (PCR) 03/11/21 03/11/21 03/11/21 11:29 15:06 15:48 WBC RBC Hgb Hct MCV MCHC RDW Plt Count Lymph % (Auto) [place] % (Auto) [place] # (Auto) Seg Neutrophils % Seg Neuts % (Manual) Lymphocytes % (Manual) Monocytes % (Manual) Nucleated RBC % Seg Neutrophils # Seg Neutrophils # Man Lymphocytes # (Manual) Monocytes # (Manual) PT INR D-Dimer ABG pH 7.260 L POC ABG pCO2 POC ABG pO2 ABG pO2 53.5 L ABG HCO3 29.5 H ABG O2 Saturation 84.0 L ABG Base Excess ABG Hemoglobin ABG Oxyhemoglobin ABG Sodium ABG Potassium ABG Glucose Oxyhemoglobin 82.3 L Sodium Potassium Chloride Carbon Dioxide BUN Creatinine Glucose POC Glucose 288 H 295 H Lactic Acid Phosphorus Magnesium Ferritin Lactate Dehydrogenase C-Reactive Protein NT-Pro-B Natriuret Pep Total Protein Albumin Triglycerides Arterial Blood Glucose Ur Specific [place] Coronavirus (PCR) 03/12/21 03/12/21 03/12/21 00:01 05:24 08:03 WBC RBC Hgb Hct MCV MCHC RDW Plt Count Lymph % (Auto) [place] % (Auto) [place] # (Auto) Seg Neutrophils % Seg Neuts % (Manual) Lymphocytes % (Manual) Monocytes % (Manual) Nucleated RBC % Seg Neutrophils # Seg Neutrophils # Man Lymphocytes # (Manual) Monocytes # (Manual) PT INR D-Dimer ABG pH POC ABG pCO2 POC ABG pO2 ABG pO2 ABG HCO3 ABG O2 Saturation ABG Base Excess ABG Hemoglobin ABG Oxyhemoglobin ABG Sodium ABG Potassium ABG Glucose Oxyhemoglobin Sodium 135 L Potassium Chloride Carbon Dioxide BUN 48 H Creatinine Glucose 358 H POC Glucose 304 H 310 H Lactic Acid Phosphorus Magnesium Ferritin Lactate Dehydrogenase C-Reactive Protein NT-Pro-B Natriuret Pep Total Protein 6.0 L Albumin 2.9 L Triglycerides Arterial Blood Glucose Ur Specific [place] Coronavirus (PCR) 03/12/21 03/12/21 03/12/21 08:03 10:43 11:31 WBC 14.6 H RBC Hgb Hct MCV MCHC RDW Plt Count Lymph % (Auto) [place] % (Auto) [place] # (Auto) Seg Neutrophils % Seg Neuts % (Manual) Lymphocytes % (Manual) Monocytes % (Manual) Nucleated RBC % Seg Neutrophils # Seg Neutrophils # Man Lymphocytes # (Manual) Monocytes # (Manual) PT INR D-Dimer ABG pH 7.248 L POC ABG pCO2 POC ABG pO2 ABG pO2 73.7 L ABG HCO3 32.0 H ABG O2 Saturation 93.9 L ABG Base Excess ABG Hemoglobin ABG Oxyhemoglobin ABG Sodium ABG Potassium ABG Glucose Oxyhemoglobin 92.1 L Sodium Potassium Chloride Carbon Dioxide BUN Creatinine Glucose POC Glucose 359 H Lactic Acid Phosphorus Magnesium Ferritin Lactate Dehydrogenase C-Reactive Protein NT-Pro-B Natriuret Pep Total Protein Albumin Triglycerides Arterial Blood Glucose Ur Specific [place] Coronavirus (PCR) 03/12/21 03/12/21 03/13/21 17:20 21:54 00:02 WBC RBC Hgb Hct MCV MCHC RDW Plt Count Lymph % (Auto) [place] % (Auto) [place] # (Auto) Seg Neutrophils % Seg Neuts % (Manual) Lymphocytes % (Manual) Monocytes % (Manual) Nucleated RBC % Seg Neutrophils # Seg Neutrophils # Man Lymphocytes # (Manual) Monocytes # (Manual) PT INR D-Dimer ABG pH 7.238 L POC ABG pCO2 71.9 H POC ABG pO2 53.6 L ABG pO2 ABG HCO3 ABG O2 Saturation ABG Base Excess ABG Hemoglobin ABG Oxyhemoglobin 84.8 L ABG Sodium 134.2 L ABG Potassium 4.9 H ABG Glucose 306 H Oxyhemoglobin Sodium Potassium Chloride Carbon Dioxide BUN Creatinine Glucose POC Glucose 374 H 308 H Lactic Acid Phosphorus Magnesium Ferritin Lactate Dehydrogenase C-Reactive Protein NT-Pro-B Natriuret Pep Total Protein Albumin Triglycerides Arterial Blood Glucose 306 H Ur Specific [place] Coronavirus (PCR) 03/13/21 03/13/21 03/13/21 05:22 05:44 05:44 WBC 13.9 H RBC Hgb Hct MCV MCHC RDW Plt Count Lymph % (Auto) [place] % (Auto) [place] # (Auto) Seg Neutrophils % Seg Neuts % (Manual) Lymphocytes % (Manual) Monocytes % (Manual) Nucleated RBC % Seg Neutrophils # Seg Neutrophils # Man Lymphocytes # (Manual) Monocytes # (Manual) PT INR D-Dimer 3567.97 H ABG pH POC ABG pCO2 POC ABG pO2 ABG pO2 ABG HCO3 ABG O2 Saturation ABG Base Excess ABG Hemoglobin ABG Oxyhemoglobin ABG Sodium ABG Potassium ABG Glucose Oxyhemoglobin Sodium Potassium Chloride Carbon Dioxide BUN Creatinine Glucose POC Glucose 316 H Lactic Acid Phosphorus Magnesium Ferritin Lactate Dehydrogenase C-Reactive Protein NT-Pro-B Natriuret Pep Total Protein Albumin Triglycerides Arterial Blood Glucose Ur Specific [place] Coronavirus (PCR) 03/13/21 03/13/21 03/13/21 05:44 05:44 11:15 WBC RBC Hgb Hct MCV MCHC RDW Plt Count Lymph % (Auto) [place] % (Auto) [place] # (Auto) Seg Neutrophils % Seg Neuts % (Manual) Lymphocytes % (Manual) Monocytes % (Manual) Nucleated RBC % Seg Neutrophils # Seg Neutrophils # Man Lymphocytes # (Manual) Monocytes # (Manual) PT INR D-Dimer ABG pH 7.310 L POC ABG pCO2 POC ABG pO2 ABG pO2 52.3 L ABG HCO3 34.1 H ABG O2 Saturation 86.8 L ABG Base Excess 5.5 H ABG Hemoglobin 13.8 L ABG Oxyhemoglobin ABG Sodium ABG Potassium ABG Glucose Oxyhemoglobin 85.1 L Sodium Potassium Chloride Carbon Dioxide BUN Creatinine Glucose POC Glucose Lactic Acid Phosphorus Magnesium Ferritin 858.7 H Lactate Dehydrogenase 348 H C-Reactive Protein 2.80 H NT-Pro-B Natriuret Pep Total Protein Albumin Triglycerides Arterial Blood Glucose Ur Specific [place] Coronavirus (PCR) 03/13/21 03/13/21 03/13/21 11:21 15:47 19:23 WBC RBC Hgb Hct MCV MCHC RDW Plt Count Lymph % (Auto) [place] % (Auto) [place] # (Auto) Seg Neutrophils % Seg Neuts % (Manual) Lymphocytes % (Manual) Monocytes % (Manual) Nucleated RBC % Seg Neutrophils # Seg Neutrophils # Man Lymphocytes # (Manual) Monocytes # (Manual) PT INR D-Dimer ABG pH POC ABG pCO2 POC ABG pO2 ABG pO2 ABG HCO3 ABG O2 Saturation ABG Base Excess ABG Hemoglobin ABG Oxyhemoglobin ABG Sodium ABG Potassium ABG Glucose Oxyhemoglobin Sodium 136 L Potassium 5.9 H Chloride Carbon Dioxide BUN 50 H Creatinine Glucose 397 H POC Glucose 322 H 317 H Lactic Acid Phosphorus Magnesium Ferritin Lactate Dehydrogenase C-Reactive Protein NT-Pro-B Natriuret Pep Total Protein Albumin Triglycerides Arterial Blood Glucose Ur Specific [place] Coronavirus (PCR) 03/13/21 03/14/21 03/14/21 23:46 05:32 05:50 WBC 11.6 H RBC Hgb Hct MCV MCHC RDW Plt Count Lymph % (Auto) [place] % (Auto) [place] # (Auto) Seg Neutrophils % Seg Neuts % (Manual) Lymphocytes % (Manual) Monocytes % (Manual) Nucleated RBC % Seg Neutrophils # Seg Neutrophils # Man Lymphocytes # (Manual) Monocytes # (Manual) PT INR D-Dimer ABG pH POC ABG pCO2 POC ABG pO2 ABG pO2 ABG HCO3 ABG O2 Saturation ABG Base Excess ABG Hemoglobin ABG Oxyhemoglobin ABG Sodium ABG Potassium ABG Glucose Oxyhemoglobin Sodium Potassium Chloride Carbon Dioxide BUN Creatinine Glucose POC Glucose 332 H 316 H Lactic Acid Phosphorus Magnesium Ferritin Lactate Dehydrogenase C-Reactive Protein NT-Pro-B Natriuret Pep Total Protein Albumin Triglycerides Arterial Blood Glucose Ur Specific [place] Coronavirus (PCR) 03/14/21 03/14/21 03/14/21 05:50 11:33 16:53 WBC RBC Hgb Hct MCV MCHC RDW Plt Count Lymph % (Auto) [place] % (Auto) [place] # (Auto) Seg Neutrophils % Seg Neuts % (Manual) Lymphocytes % (Manual) Monocytes % (Manual) Nucleated RBC % Seg Neutrophils # Seg Neutrophils # Man Lymphocytes # (Manual) Monocytes # (Manual) PT INR D-Dimer ABG pH POC ABG pCO2 POC ABG pO2 ABG pO2 ABG HCO3 ABG O2 Saturation ABG Base Excess ABG Hemoglobin ABG Oxyhemoglobin ABG Sodium ABG Potassium ABG Glucose Oxyhemoglobin Sodium Potassium 5.9 H Chloride Carbon Dioxide 31 H BUN 48 H Creatinine Glucose 380 H POC Glucose 315 H 235 H Lactic Acid Phosphorus Magnesium 3.40 H Ferritin Lactate Dehydrogenase C-Reactive Protein NT-Pro-B Natriuret Pep Total Protein Albumin Triglycerides Arterial Blood Glucose Ur Specific [place] Coronavirus (PCR) 03/14/21 03/14/21 03/15/21 18:34 23:27 01:22 WBC RBC Hgb Hct 46.3 H MCV MCHC RDW Plt Count Lymph % (Auto) [place] % (Auto) [place] # (Auto) Seg Neutrophils % Seg Neuts % (Manual) Lymphocytes % (Manual) Monocytes % (Manual) Nucleated RBC % Seg Neutrophils # Seg Neutrophils # Man Lymphocytes # (Manual) Monocytes # (Manual) PT INR D-Dimer ABG pH POC ABG pCO2 POC ABG pO2 ABG pO2 ABG HCO3 ABG O2 Saturation ABG Base Excess ABG Hemoglobin ABG Oxyhemoglobin ABG Sodium ABG Potassium ABG Glucose Oxyhemoglobin Sodium 146 H Potassium Chloride Carbon Dioxide 34 H BUN 49 H Creatinine Glucose 285 H POC Glucose 203 H Lactic Acid Phosphorus Magnesium Ferritin Lactate Dehydrogenase C-Reactive Protein NT-Pro-B Natriuret Pep Total Protein Albumin Triglycerides Arterial Blood Glucose Ur Specific [place] Coronavirus (PCR) 03/15/21 03/15/21 03/15/21 04:00 06:06 06:06 WBC RBC Hgb Hct MCV MCHC RDW Plt Count Lymph % (Auto) [place] % (Auto) [place] # (Auto) Seg Neutrophils % Seg Neuts % (Manual) Lymphocytes % (Manual) Monocytes % (Manual) Nucleated RBC % Seg Neutrophils # Seg Neutrophils # Man Lymphocytes # (Manual) Monocytes # (Manual) PT INR D-Dimer 1781.79 H ABG pH POC ABG pCO2 POC ABG pO2 ABG pO2 ABG HCO3 ABG O2 Saturation ABG Base Excess ABG Hemoglobin ABG Oxyhemoglobin ABG Sodium ABG Potassium ABG Glucose Oxyhemoglobin Sodium 148 H Potassium 5.7 H D Chloride 108.0 H Carbon Dioxide 31 H BUN 46 H Creatinine Glucose 139 H POC Glucose Lactic Acid Phosphorus 4.80 H D Magnesium 3.00 H Ferritin 976.4 H Lactate Dehydrogenase 630 H C-Reactive Protein NT-Pro-B Natriuret Pep Total Protein Albumin Triglycerides Arterial Blood Glucose Ur Specific [place] Coronavirus (PCR) 03/15/21 03/15/21 03/15/21 11:56 14:05 17:09 WBC RBC Hgb Hct MCV MCHC RDW Plt Count Lymph % (Auto) [place] % (Auto) [place] # (Auto) Seg Neutrophils % Seg Neuts % (Manual) Lymphocytes % (Manual) Monocytes % (Manual) Nucleated RBC % Seg Neutrophils # Seg Neutrophils # Man Lymphocytes # (Manual) Monocytes # (Manual) PT INR D-Dimer ABG pH POC ABG pCO2 POC ABG pO2 ABG pO2 52.1 L ABG HCO3 36.6 H ABG O2 Saturation 87.6 L ABG Base Excess 9.5 H ABG Hemoglobin ABG Oxyhemoglobin ABG Sodium ABG Potassium ABG Glucose Oxyhemoglobin 85.7 L Sodium Potassium Chloride Carbon Dioxide BUN Creatinine Glucose POC Glucose 219 H 263 H Lactic Acid Phosphorus Magnesium Ferritin Lactate Dehydrogenase C-Reactive Protein NT-Pro-B Natriuret Pep Total Protein Albumin Triglycerides Arterial Blood Glucose Ur Specific [place] Coronavirus (PCR) 03/16/21 03/16/21 03/16/21 00:32 04:11 04:11 WBC 11.9 H RBC Hgb Hct MCV MCHC 30 L RDW Plt Count Lymph % (Auto) [place] % (Auto) [place] # (Auto) Seg Neutrophils % Seg Neuts % (Manual) Lymphocytes % (Manual) Monocytes % (Manual) Nucleated RBC % Seg Neutrophils # Seg Neutrophils # Man Lymphocytes # (Manual) Monocytes # (Manual) PT INR D-Dimer ABG pH POC ABG pCO2 POC ABG pO2 ABG pO2 ABG HCO3 ABG O2 Saturation ABG Base Excess ABG Hemoglobin ABG Oxyhemoglobin ABG Sodium ABG Potassium ABG Glucose Oxyhemoglobin Sodium 151 H Potassium Chloride Carbon Dioxide 35 H BUN 48 H Creatinine Glucose 152 H POC Glucose 165 H Lactic Acid Phosphorus Magnesium Ferritin Lactate Dehydrogenase C-Reactive Protein NT-Pro-B Natriuret Pep Total Protein Albumin Triglycerides Arterial Blood Glucose Ur Specific [place] Coronavirus (PCR) 03/16/21 03/16/21 03/16/21 04:11 05:26 11:35 WBC RBC Hgb Hct MCV MCHC RDW Plt Count Lymph % (Auto) [place] % (Auto) [place] # (Auto) Seg Neutrophils % Seg Neuts % (Manual) Lymphocytes % (Manual) Monocytes % (Manual) Nucleated RBC % Seg Neutrophils # Seg Neutrophils # Man Lymphocytes # (Manual) Monocytes # (Manual) PT INR D-Dimer ABG pH POC ABG pCO2 POC ABG pO2 ABG pO2 ABG HCO3 ABG O2 Saturation ABG Base Excess ABG Hemoglobin ABG Oxyhemoglobin ABG Sodium ABG Potassium ABG Glucose Oxyhemoglobin Sodium Potassium Chloride Carbon Dioxide BUN Creatinine Glucose POC Glucose 162 H 187 H Lactic Acid Phosphorus Magnesium Ferritin Lactate Dehydrogenase C-Reactive Protein NT-Pro-B Natriuret Pep Total Protein Albumin Triglycerides 267 H Arterial Blood Glucose Ur Specific [place] Coronavirus (PCR) 03/16/21 03/16/21 03/16/21 17:29 22:25 23:22 WBC RBC Hgb Hct MCV MCHC RDW Plt Count Lymph % (Auto) [place] % (Auto) [place] # (Auto) Seg Neutrophils % Seg Neuts % (Manual) Lymphocytes % (Manual) Monocytes % (Manual) Nucleated RBC % Seg Neutrophils # Seg Neutrophils # Man Lymphocytes # (Manual) Monocytes # (Manual) PT INR D-Dimer ABG pH POC ABG pCO2 POC ABG pO2 ABG pO2 ABG HCO3 ABG O2 Saturation ABG Base Excess ABG Hemoglobin ABG Oxyhemoglobin ABG Sodium ABG Potassium ABG Glucose Oxyhemoglobin Sodium Potassium Chloride Carbon Dioxide BUN Creatinine Glucose POC Glucose 237 H 165 H 189 H Lactic Acid Phosphorus Magnesium Ferritin Lactate Dehydrogenase C-Reactive Protein NT-Pro-B Natriuret Pep Total Protein Albumin Triglycerides Arterial Blood Glucose Ur Specific [place] Coronavirus (PCR) 03/17/21 03/17/21 03/17/21 04:40 04:40 04:40 WBC 14.1 H RBC Hgb Hct MCV MCHC RDW 15.3 H Plt Count Lymph % (Auto) 12.6 L [place] % (Auto) 11.3 H [place] # (Auto) 1.6 H Seg Neutrophils % 74.9 H Seg Neuts % (Manual) Lymphocytes % (Manual) Monocytes % (Manual) Nucleated RBC % Seg Neutrophils # 10.5 H Seg Neutrophils # Man Lymphocytes # (Manual) Monocytes # (Manual) PT INR D-Dimer 1359.12 H ABG pH POC ABG pCO2 POC ABG pO2 ABG pO2 ABG HCO3 ABG O2 Saturation ABG Base Excess ABG Hemoglobin ABG Oxyhemoglobin ABG Sodium ABG Potassium ABG Glucose Oxyhemoglobin Sodium 148 H Potassium Chloride 107.5 H Carbon Dioxide 33 H BUN 42 H Creatinine Glucose 183 H POC Glucose Lactic Acid Phosphorus Magnesium 2.70 H Ferritin Lactate Dehydrogenase C-Reactive Protein NT-Pro-B Natriuret Pep Total Protein Albumin Triglycerides Arterial Blood Glucose Ur Specific [place] Coronavirus (PCR) 03/17/21 03/17/21 03/17/21 05:53 11:05 11:51 WBC RBC Hgb Hct MCV MCHC RDW Plt Count Lymph % (Auto) [place] % (Auto) [place] # (Auto) Seg Neutrophils % Seg Neuts % (Manual) Lymphocytes % (Manual) Monocytes % (Manual) Nucleated RBC % Seg Neutrophils # Seg Neutrophils # Man Lymphocytes # (Manual) Monocytes # (Manual) PT INR D-Dimer ABG pH POC ABG pCO2 POC ABG pO2 ABG pO2 ABG HCO3 35.7 H ABG O2 Saturation ABG Base Excess 8.7 H ABG Hemoglobin ABG Oxyhemoglobin ABG Sodium ABG Potassium ABG Glucose Oxyhemoglobin 94.2 L Sodium Potassium Chloride Carbon Dioxide BUN Creatinine Glucose POC Glucose 176 H 197 H Lactic Acid Phosphorus Magnesium Ferritin Lactate Dehydrogenase C-Reactive Protein NT-Pro-B Natriuret Pep Total Protein Albumin Triglycerides Arterial Blood Glucose Ur Specific [place] Coronavirus (PCR) 03/17/21 03/17/21 03/17/21 16:54 21:10 23:33 WBC RBC Hgb Hct MCV MCHC RDW Plt Count Lymph % (Auto) [place] % (Auto) [place] # (Auto) Seg Neutrophils % Seg Neuts % (Manual) Lymphocytes % (Manual) Monocytes % (Manual) Nucleated RBC % Seg Neutrophils # Seg Neutrophils # Man Lymphocytes # (Manual) Monocytes # (Manual) PT INR D-Dimer ABG pH POC ABG pCO2 POC ABG pO2 ABG pO2 ABG HCO3 ABG O2 Saturation ABG Base Excess ABG Hemoglobin ABG Oxyhemoglobin ABG Sodium ABG Potassium ABG Glucose Oxyhemoglobin Sodium Potassium Chloride Carbon Dioxide BUN Creatinine Glucose POC Glucose 135 H 160 H 138 H Lactic Acid Phosphorus Magnesium Ferritin Lactate Dehydrogenase C-Reactive Protein NT-Pro-B Natriuret Pep Total Protein Albumin Triglycerides Arterial Blood Glucose Ur Specific [place] Coronavirus (PCR) 03/18/21 03/18/21 03/18/21 04:18 04:50 05:43 WBC RBC Hgb Hct MCV MCHC RDW Plt Count Lymph % (Auto) [place] % (Auto) [place] # (Auto) Seg Neutrophils % Seg Neuts % (Manual) Lymphocytes % (Manual) Monocytes % (Manual) Nucleated RBC % Seg Neutrophils # Seg Neutrophils # Man Lymphocytes # (Manual) Monocytes # (Manual) PT INR D-Dimer ABG pH POC ABG pCO2 POC ABG pO2 ABG pO2 59.8 L ABG HCO3 36.5 H ABG O2 Saturation 90.7 L ABG Base Excess 9.4 H ABG Hemoglobin 12.0 L ABG Oxyhemoglobin ABG Sodium ABG Potassium ABG Glucose Oxyhemoglobin 88.9 L Sodium Potassium Chloride 107.2 H Carbon Dioxide 34 H BUN 38 H Creatinine 0.7 L Glucose 136 H POC Glucose 128 H Lactic Acid Phosphorus Magnesium Ferritin Lactate Dehydrogenase C-Reactive Protein NT-Pro-B Natriuret Pep Total Protein Albumin Triglycerides Arterial Blood Glucose Ur Specific [place] Coronavirus (PCR) 03/18/21 03/18/21 03/18/21 11:20 17:35 23:35 WBC RBC Hgb Hct MCV MCHC RDW Plt Count Lymph % (Auto) [place] % (Auto) [place] # (Auto) Seg Neutrophils % Seg Neuts % (Manual) Lymphocytes % (Manual) Monocytes % (Manual) Nucleated RBC % Seg Neutrophils # Seg Neutrophils # Man Lymphocytes # (Manual) Monocytes # (Manual) PT INR D-Dimer ABG pH POC ABG pCO2 POC ABG pO2 ABG pO2 70.7 L ABG HCO3 33.6 H ABG O2 Saturation ABG Base Excess 8.0 H ABG Hemoglobin ABG Oxyhemoglobin ABG Sodium ABG Potassium ABG Glucose Oxyhemoglobin 93.7 L Sodium Potassium Chloride Carbon Dioxide BUN Creatinine Glucose POC Glucose 189 H 144 H Lactic Acid Phosphorus Magnesium Ferritin Lactate Dehydrogenase C-Reactive Protein NT-Pro-B Natriuret Pep Total Protein Albumin Triglycerides Arterial Blood Glucose Ur Specific [place] Coronavirus (PCR) 03/19/21 03/19/2103/19/22 02:35 04:20 04:20 WBC 14.0 H RBC Hgb Hct MCV MCHC RDW Plt Count Lymph % (Auto) [place] % (Auto) [place] # (Auto) Seg Neutrophils % Seg Neuts % (Manual) Lymphocytes % (Manual) Monocytes % (Manual) Nucleated RBC % Seg Neutrophils # Seg Neutrophils # Man Lymphocytes # (Manual) Monocytes # (Manual) PT INR D-Dimer ABG pH POC ABG pCO2 POC ABG pO2 ABG pO2 ABG HCO3 32.0 H ABG O2 Saturation ABG Base Excess 5.2 H ABG Hemoglobin 13.6 L ABG Oxyhemoglobin ABG Sodium ABG Potassium ABG Glucose Oxyhemoglobin 94.6 L Sodium 146 H Potassium Chloride 109.3 H Carbon Dioxide BUN 36 H Creatinine Glucose 203 H POC Glucose Lactic Acid Phosphorus Magnesium Ferritin Lactate Dehydrogenase C-Reactive Protein NT-Pro-B Natriuret Pep Total Protein Albumin Triglycerides 254 H Arterial Blood Glucose Ur Specific [place] Coronavirus (PCR) 03/19/21 03/19/21 03/19/21 05:45 11:36 23:51 WBC RBC Hgb Hct MCV MCHC RDW Plt Count Lymph % (Auto) [place] % (Auto) [place] # (Auto) Seg Neutrophils % Seg Neuts % (Manual) Lymphocytes % (Manual) Monocytes % (Manual) Nucleated RBC % Seg Neutrophils # Seg Neutrophils # Man Lymphocytes # (Manual) Monocytes # (Manual) PT INR D-Dimer ABG pH POC ABG pCO2 POC ABG pO2 ABG pO2 ABG HCO3 ABG O2 Saturation ABG Base Excess ABG Hemoglobin ABG Oxyhemoglobin ABG Sodium ABG Potassium ABG Glucose Oxyhemoglobin Sodium Potassium Chloride Carbon Dioxide BUN Creatinine Glucose POC Glucose 164 H 172 H 140 H Lactic Acid Phosphorus Magnesium Ferritin Lactate Dehydrogenase C-Reactive Protein NT-Pro-B Natriuret Pep Total Protein Albumin Triglycerides Arterial Blood Glucose Ur Specific [place] Coronavirus (PCR) 03/20/21 03/20/21 03/20/21 03:29 04:45 04:45 WBC RBC Hgb Hct MCV 95 H MCHC RDW 15.7 H Plt Count Lymph % (Auto) [place] % (Auto) [place] # (Auto) Seg Neutrophils % Seg Neuts % (Manual) Lymphocytes % (Manual) Monocytes % (Manual) Nucleated RBC % Seg Neutrophils # Seg Neutrophils # Man Lymphocytes # (Manual) Monocytes # (Manual) PT INR D-Dimer ABG pH 7.349 L POC ABG pCO2 POC ABG pO2 ABG pO2 ABG HCO3 33.7 H ABG O2 Saturation ABG Base Excess 6.4 H ABG Hemoglobin 11.8 L ABG Oxyhemoglobin ABG Sodium ABG Potassium ABG Glucose Oxyhemoglobin 93.9 L Sodium 146 H Potassium 5.5 H Chloride 111.1 H Carbon Dioxide BUN 34 H Creatinine 0.7 L Glucose 145 H POC Glucose Lactic Acid Phosphorus Magnesium 2.50 H Ferritin Lactate Dehydrogenase C-Reactive Protein NT-Pro-B Natriuret Pep Total Protein Albumin Triglycerides Arterial Blood Glucose Ur Specific [place] Coronavirus (PCR) 03/20/21 03/20/21 03/20/21 05:41 09:08 11:54 WBC RBC Hgb Hct MCV MCHC RDW Plt Count Lymph % (Auto) [place] % (Auto) [place] # (Auto) Seg Neutrophils % Seg Neuts % (Manual) Lymphocytes % (Manual) Monocytes % (Manual) Nucleated RBC % Seg Neutrophils # Seg Neutrophils # Man Lymphocytes # (Manual) Monocytes # (Manual) PT INR D-Dimer ABG pH POC ABG pCO2 POC ABG pO2 ABG pO2 ABG HCO3 ABG O2 Saturation ABG Base Excess ABG Hemoglobin ABG Oxyhemoglobin ABG Sodium ABG Potassium ABG Glucose Oxyhemoglobin Sodium Potassium Chloride Carbon Dioxide BUN Creatinine Glucose POC Glucose 108 H 132 H 162 H Lactic Acid Phosphorus Magnesium Ferritin Lactate Dehydrogenase C-Reactive Protein NT-Pro-B Natriuret Pep Total Protein Albumin Triglycerides Arterial Blood Glucose Ur Specific [place] Coronavirus (PCR) 03/20/21 03/21/21 03/21/21 17:28 00:31 04:44 WBC RBC Hgb Hct MCV MCHC RDW Plt Count Lymph % (Auto) [place] % (Auto) [place] # (Auto) Seg Neutrophils % Seg Neuts % (Manual) Lymphocytes % (Manual) Monocytes % (Manual) Nucleated RBC % Seg Neutrophils # Seg Neutrophils # Man Lymphocytes # (Manual) Monocytes # (Manual) PT INR D-Dimer ABG pH POC ABG pCO2 POC ABG pO2 ABG pO2 ABG HCO3 ABG O2 Saturation ABG Base Excess ABG Hemoglobin ABG Oxyhemoglobin ABG Sodium ABG Potassium ABG Glucose Oxyhemoglobin Sodium Potassium Chloride 108.3 H Carbon Dioxide BUN 30 H Creatinine 0.7 L Glucose POC Glucose 160 H 122 H Lactic Acid Phosphorus Magnesium Ferritin Lactate Dehydrogenase C-Reactive Protein NT-Pro-B Natriuret Pep Total Protein Albumin Triglycerides Arterial Blood Glucose Ur Specific [place] Coronavirus (PCR) 03/21/21 03/21/21 03/21/21 09:18 10:09 13:20 WBC RBC Hgb Hct MCV MCHC RDW Plt Count Lymph % (Auto) [place] % (Auto) [place] # (Auto) Seg Neutrophils % Seg Neuts % (Manual) Lymphocytes % (Manual) Monocytes % (Manual) Nucleated RBC % Seg Neutrophils # Seg Neutrophils # Man Lymphocytes # (Manual) Monocytes # (Manual) PT INR D-Dimer ABG pH POC ABG pCO2 POC ABG pO2 ABG pO2 60.7 L ABG HCO3 30.6 H ABG O2 Saturation 93.6 L ABG Base Excess 5.3 H ABG Hemoglobin ABG Oxyhemoglobin ABG Sodium ABG Potassium ABG Glucose Oxyhemoglobin 91.7 L Sodium Potassium Chloride Carbon Dioxide BUN Creatinine Glucose POC Glucose 169 H 122 H Lactic Acid Phosphorus Magnesium Ferritin Lactate Dehydrogenase C-Reactive Protein NT-Pro-B Natriuret Pep Total Protein Albumin Triglycerides Arterial Blood Glucose Ur Specific [place] Coronavirus (PCR) 03/21/21 03/21/21 03/21/21 17:25 22:41 23:52 WBC RBC Hgb Hct MCV MCHC RDW Plt Count Lymph % (Auto) [place] % (Auto) [place] # (Auto) Seg Neutrophils % Seg Neuts % (Manual) Lymphocytes % (Manual) Monocytes % (Manual) Nucleated RBC % Seg Neutrophils # Seg Neutrophils # Man Lymphocytes # (Manual) Monocytes # (Manual) PT INR D-Dimer ABG pH POC ABG pCO2 POC ABG pO2 ABG pO2 ABG HCO3 ABG O2 Saturation ABG Base Excess ABG Hemoglobin ABG Oxyhemoglobin ABG Sodium ABG Potassium ABG Glucose Oxyhemoglobin Sodium Potassium Chloride Carbon Dioxide BUN Creatinine Glucose POC Glucose 121 H 139 H 140 H Lactic Acid Phosphorus Magnesium Ferritin Lactate Dehydrogenase C-Reactive Protein NT-Pro-B Natriuret Pep Total Protein Albumin Triglycerides Arterial Blood Glucose Ur Specific [place] Coronavirus (PCR) 03/22/21 03/22/21 03/22/21 05:58 07:26 07:26 WBC RBC Hgb Hct MCV MCHC 31 L RDW 16.1 H Plt Count Lymph % (Auto) [place] % (Auto) [place] # (Auto) Seg Neutrophils % Seg Neuts % (Manual) Lymphocytes % (Manual) Monocytes % (Manual) Nucleated RBC % Seg Neutrophils # Seg Neutrophils # Man Lymphocytes # (Manual) Monocytes # (Manual) PT INR D-Dimer ABG pH POC ABG pCO2 POC ABG pO2 ABG pO2 ABG HCO3 ABG O2 Saturation ABG Base Excess ABG Hemoglobin ABG Oxyhemoglobin ABG Sodium ABG Potassium ABG Glucose Oxyhemoglobin Sodium Potassium Chloride 108.5 H Carbon Dioxide BUN 44 H Creatinine Glucose 120 H POC Glucose 131 H Lactic Acid Phosphorus 5.80 H Magnesium 2.80 H Ferritin Lactate Dehydrogenase C-Reactive Protein NT-Pro-B Natriuret Pep Total Protein Albumin Triglycerides 305 H Arterial Blood Glucose Ur Specific [place] Coronavirus (PCR) 03/22/21 03/22/21 03/22/21 09:38 11:15 16:01 WBC RBC Hgb Hct MCV MCHC RDW Plt Count Lymph % (Auto) [place] % (Auto) [place] # (Auto) Seg Neutrophils % Seg Neuts % (Manual) Lymphocytes % (Manual) Monocytes % (Manual) Nucleated RBC % Seg Neutrophils # Seg Neutrophils # Man Lymphocytes # (Manual) Monocytes # (Manual) PT INR D-Dimer ABG pH POC ABG pCO2 POC ABG pO2 ABG pO2 70.0 L ABG HCO3 30.0 H ABG O2 Saturation 94.6 L ABG Base Excess 3.6 H ABG Hemoglobin 13.5 L ABG Oxyhemoglobin ABG Sodium ABG Potassium ABG Glucose Oxyhemoglobin 92.5 L Sodium Potassium Chloride Carbon Dioxide BUN Creatinine Glucose POC Glucose 186 H 148 H Lactic Acid Phosphorus Magnesium Ferritin Lactate Dehydrogenase C-Reactive Protein NT-Pro-B Natriuret Pep Total Protein Albumin Triglycerides Arterial Blood Glucose Ur Specific [place] Coronavirus (PCR) 03/22/21 03/22/21 03/23/21 21:13 23:48 07:04 WBC 11.7 H RBC Hgb Hct MCV 95 H MCHC RDW 16.1 H Plt Count Lymph % (Auto) [place] % (Auto) [place] # (Auto) Seg Neutrophils % Seg Neuts % (Manual) Lymphocytes % (Manual) Monocytes % (Manual) Nucleated RBC % Seg Neutrophils # Seg Neutrophils # Man Lymphocytes # (Manual) Monocytes # (Manual) PT INR D-Dimer ABG pH POC ABG pCO2 POC ABG pO2 ABG pO2 ABG HCO3 ABG O2 Saturation ABG Base Excess ABG Hemoglobin ABG Oxyhemoglobin ABG Sodium ABG Potassium ABG Glucose Oxyhemoglobin Sodium Potassium Chloride Carbon Dioxide BUN Creatinine Glucose POC Glucose 121 H 114 H Lactic Acid Phosphorus Magnesium Ferritin Lactate Dehydrogenase C-Reactive Protein NT-Pro-B Natriuret Pep Total Protein Albumin Triglycerides Arterial Blood Glucose Ur Specific [place] Coronavirus (PCR) 03/23/21 03/23/21 03/23/21 07:04 08:35 11:19 WBC RBC Hgb Hct MCV MCHC RDW Plt Count Lymph % (Auto) [place] % (Auto) [place] # (Auto) Seg Neutrophils % Seg Neuts % (Manual) Lymphocytes % (Manual) Monocytes % (Manual) Nucleated RBC % Seg Neutrophils # Seg Neutrophils # Man Lymphocytes # (Manual) Monocytes # (Manual) PT INR D-Dimer ABG pH 7.345 L POC ABG pCO2 POC ABG pO2 ABG pO2 167.9 H ABG HCO3 32.2 H ABG O2 Saturation ABG Base Excess 4.8 H ABG Hemoglobin 13.4 L ABG Oxyhemoglobin ABG Sodium ABG Potassium ABG Glucose Oxyhemoglobin Sodium 148 H Potassium Chloride 111.3 H Carbon Dioxide 31 H BUN 31 H Creatinine Glucose 131 H POC Glucose 165 H Lactic Acid Phosphorus Magnesium 2.50 H Ferritin Lactate Dehydrogenase C-Reactive Protein NT-Pro-B Natriuret Pep Total Protein Albumin Triglycerides Arterial Blood Glucose Ur Specific [place] Coronavirus (PCR) 03/23/21 03/23/21 03/24/21 16:48 20:52 00:07 WBC RBC Hgb Hct MCV MCHC RDW Plt Count Lymph % (Auto) [place] % (Auto) [place] # (Auto) Seg Neutrophils % Seg Neuts % (Manual) Lymphocytes % (Manual) Monocytes % (Manual) Nucleated RBC % Seg Neutrophils # Seg Neutrophils # Man Lymphocytes # (Manual) Monocytes # (Manual) PT INR D-Dimer ABG pH POC ABG pCO2 POC ABG pO2 ABG pO2 ABG HCO3 ABG O2 Saturation ABG Base Excess ABG Hemoglobin ABG Oxyhemoglobin ABG Sodium ABG Potassium ABG Glucose Oxyhemoglobin Sodium Potassium Chloride Carbon Dioxide BUN Creatinine Glucose POC Glucose 160 H 127 H 147 H Lactic Acid Phosphorus Magnesium Ferritin Lactate Dehydrogenase C-Reactive Protein NT-Pro-B Natriuret Pep Total Protein Albumin Triglycerides Arterial Blood Glucose Ur Specific [place] Coronavirus (PCR) 03/24/21 03/24/21 03/24/21 04:34 04:34 05:20 WBC 13.3 H RBC Hgb Hct MCV MCHC 31 L RDW 16.1 H Plt Count Lymph % (Auto) [place] % (Auto) [place] # (Auto) Seg Neutrophils % Seg Neuts % (Manual) Lymphocytes % (Manual) Monocytes % (Manual) Nucleated RBC % Seg Neutrophils # Seg Neutrophils # Man Lymphocytes # (Manual) Monocytes # (Manual) PT INR D-Dimer ABG pH POC ABG pCO2 POC ABG pO2 ABG pO2 ABG HCO3 ABG O2 Saturation ABG Base Excess ABG Hemoglobin ABG Oxyhemoglobin ABG Sodium ABG Potassium ABG Glucose Oxyhemoglobin Sodium Potassium 5.2 H Chloride Carbon Dioxide BUN 28 H Creatinine 0.7 L Glucose 152 H POC Glucose 141 H Lactic Acid Phosphorus Magnesium Ferritin Lactate Dehydrogenase C-Reactive Protein NT-Pro-B Natriuret Pep Total Protein Albumin Triglycerides Arterial Blood Glucose Ur Specific [place] Coronavirus (PCR) 03/24/21 03/24/21 03/24/21 09:40 11:38 16:45 WBC RBC Hgb Hct MCV MCHC RDW Plt Count Lymph % (Auto) [place] % (Auto) [place] # (Auto) Seg Neutrophils % Seg Neuts % (Manual) Lymphocytes % (Manual) Monocytes % (Manual) Nucleated RBC % Seg Neutrophils # Seg Neutrophils # Man Lymphocytes # (Manual) Monocytes # (Manual) PT INR D-Dimer ABG pH POC ABG pCO2 POC ABG pO2 ABG pO2 ABG HCO3 ABG O2 Saturation ABG Base Excess ABG Hemoglobin ABG Oxyhemoglobin ABG Sodium ABG Potassium ABG Glucose Oxyhemoglobin Sodium Potassium Chloride Carbon Dioxide BUN Creatinine Glucose POC Glucose 126 H 136 H 118 H Lactic Acid Phosphorus Magnesium Ferritin Lactate Dehydrogenase C-Reactive Protein NT-Pro-B Natriuret Pep Total Protein Albumin Triglycerides Arterial Blood Glucose Ur Specific [place] Coronavirus (PCR) 03/24/21 03/24/21 03/25/21 21:03 23:49 04:32 WBC RBC Hgb Hct MCV MCHC RDW 16.1 H Plt Count 121 L Lymph % (Auto) [place] % (Auto) [place] # (Auto) Seg Neutrophils % Seg Neuts % (Manual) Lymphocytes % (Manual) Monocytes % (Manual) Nucleated RBC % Seg Neutrophils # Seg Neutrophils # Man Lymphocytes # (Manual) Monocytes # (Manual) PT INR D-Dimer ABG pH POC ABG pCO2 POC ABG pO2 ABG pO2 ABG HCO3 ABG O2 Saturation ABG Base Excess ABG Hemoglobin ABG Oxyhemoglobin ABG Sodium ABG Potassium ABG Glucose Oxyhemoglobin Sodium Potassium Chloride Carbon Dioxide BUN Creatinine Glucose POC Glucose 116 H 125 H Lactic Acid Phosphorus Magnesium Ferritin Lactate Dehydrogenase C-Reactive Protein NT-Pro-B Natriuret Pep Total Protein Albumin Triglycerides Arterial Blood Glucose Ur Specific [place] Coronavirus (PCR) 03/25/21 03/25/21 03/25/21 04:32 05:21 09:29 WBC RBC Hgb Hct MCV MCHC RDW Plt Count Lymph % (Auto) [place] % (Auto) [place] # (Auto) Seg Neutrophils % Seg Neuts % (Manual) Lymphocytes % (Manual) Monocytes % (Manual) Nucleated RBC % Seg Neutrophils # Seg Neutrophils # Man Lymphocytes # (Manual) Monocytes # (Manual) PT INR D-Dimer ABG pH POC ABG pCO2 POC ABG pO2 ABG pO2 ABG HCO3 ABG O2 Saturation ABG Base Excess ABG Hemoglobin ABG Oxyhemoglobin ABG Sodium ABG Potassium ABG Glucose Oxyhemoglobin Sodium 135 L D Potassium Chloride Carbon Dioxide BUN 25 H Creatinine 0.7 L Glucose 168 H POC Glucose 149 H 115 H Lactic Acid Phosphorus Magnesium Ferritin Lactate Dehydrogenase C-Reactive Protein NT-Pro-B Natriuret Pep Total Protein Albumin Triglycerides Arterial Blood Glucose Ur Specific [place] Coronavirus (PCR) 03/25/21 03/25/21 03/25/21 12:26 12:35 23:53 WBC RBC Hgb Hct MCV MCHC RDW Plt Count Lymph % (Auto) [place] % (Auto) [place] # (Auto) Seg Neutrophils % Seg Neuts % (Manual) Lymphocytes % (Manual) Monocytes % (Manual) Nucleated RBC % Seg Neutrophils # Seg Neutrophils # Man Lymphocytes # (Manual) Monocytes # (Manual) PT INR D-Dimer ABG pH POC ABG pCO2 POC ABG pO2 ABG pO2 100.5 H ABG HCO3 33.6 H ABG O2 Saturation ABG Base Excess 6.4 H ABG Hemoglobin 12.0 L ABG Oxyhemoglobin ABG Sodium ABG Potassium ABG Glucose Oxyhemoglobin Sodium Potassium Chloride Carbon Dioxide BUN Creatinine Glucose POC Glucose 108 H 137 H Lactic Acid Phosphorus Magnesium Ferritin Lactate Dehydrogenase C-Reactive Protein NT-Pro-B Natriuret Pep Total Protein Albumin Triglycerides Arterial Blood Glucose Ur Specific [place] Coronavirus (PCR) 03/26/21 03/26/21 03/26/21 05:14 07:09 07:09 WBC RBC Hgb Hct MCV MCHC RDW 16.5 H Plt Count 139 L Lymph % (Auto) [place] % (Auto) [place] # (Auto) Seg Neutrophils % Seg Neuts % (Manual) Lymphocytes % (Manual) Monocytes % (Manual) Nucleated RBC % Seg Neutrophils # Seg Neutrophils # Man Lymphocytes # (Manual) Monocytes # (Manual) PT INR D-Dimer ABG pH POC ABG pCO2 POC ABG pO2 ABG pO2 ABG HCO3 ABG O2 Saturation ABG Base Excess ABG Hemoglobin ABG Oxyhemoglobin ABG Sodium ABG Potassium ABG Glucose Oxyhemoglobin Sodium Potassium Chloride Carbon Dioxide BUN 22 H Creatinine 0.7 L Glucose 108 H POC Glucose 116 H Lactic Acid Phosphorus Magnesium Ferritin Lactate Dehydrogenase C-Reactive Protein NT-Pro-B Natriuret Pep Total Protein Albumin Triglycerides Arterial Blood Glucose Ur Specific [place] Coronavirus (PCR) 03/26/21 03/26/21 03/26/21 09:51 11:15 16:59 WBC RBC Hgb Hct MCV MCHC RDW Plt Count Lymph % (Auto) [place] % (Auto) [place] # (Auto) Seg Neutrophils % Seg Neuts % (Manual) Lymphocytes % (Manual) Monocytes % (Manual) Nucleated RBC % Seg Neutrophils # Seg Neutrophils # Man Lymphocytes # (Manual) Monocytes # (Manual) PT INR D-Dimer ABG pH POC ABG pCO2 POC ABG pO2 ABG pO2 ABG HCO3 ABG O2 Saturation ABG Base Excess ABG Hemoglobin ABG Oxyhemoglobin ABG Sodium ABG Potassium ABG Glucose Oxyhemoglobin Sodium Potassium Chloride Carbon Dioxide BUN Creatinine Glucose POC Glucose 107 H 119 H 174 H Lactic Acid Phosphorus Magnesium Ferritin Lactate Dehydrogenase C-Reactive Protein NT-Pro-B Natriuret Pep Total Protein Albumin Triglycerides Arterial Blood Glucose Ur Specific [place] Coronavirus (PCR) 03/26/21 03/27/21 03/27/21 22:18 07:08 10:28 WBC RBC Hgb Hct MCV 95 H MCHC RDW 16.2 H Plt Count 134 L Lymph % (Auto) [place] % (Auto) [place] # (Auto) Seg Neutrophils % Seg Neuts % (Manual) Lymphocytes % (Manual) Monocytes % (Manual) Nucleated RBC % Seg Neutrophils # Seg Neutrophils # Man Lymphocytes # (Manual) Monocytes # (Manual) PT INR D-Dimer ABG pH POC ABG pCO2 POC ABG pO2 ABG pO2 ABG HCO3 ABG O2 Saturation ABG Base Excess ABG Hemoglobin ABG Oxyhemoglobin ABG Sodium ABG Potassium ABG Glucose Oxyhemoglobin Sodium Potassium Chloride Carbon Dioxide BUN Creatinine Glucose POC Glucose 107 H 52 L Lactic Acid Phosphorus Magnesium Ferritin Lactate Dehydrogenase C-Reactive Protein NT-Pro-B Natriuret Pep Total Protein Albumin Triglycerides Arterial Blood Glucose Ur Specific [place] Coronavirus (PCR) 03/27/21 03/27/21 03/27/21 10:28 11:45 17:39 WBC RBC Hgb Hct MCV MCHC RDW Plt Count Lymph % (Auto) [place] % (Auto) [place] # (Auto) Seg Neutrophils % Seg Neuts % (Manual) Lymphocytes % (Manual) Monocytes % (Manual) Nucleated RBC % Seg Neutrophils # Seg Neutrophils # Man Lymphocytes # (Manual) Monocytes # (Manual) PT INR D-Dimer ABG pH POC ABG pCO2 POC ABG pO2 ABG pO2 ABG HCO3 ABG O2 Saturation ABG Base Excess ABG Hemoglobin ABG Oxyhemoglobin ABG Sodium ABG Potassium ABG Glucose Oxyhemoglobin Sodium 136 L Potassium Chloride Carbon Dioxide BUN Creatinine 0.7 L Glucose 150 H POC Glucose 121 H 165 H Lactic Acid Phosphorus Magnesium Ferritin Lactate Dehydrogenase C-Reactive Protein NT-Pro-B Natriuret Pep Total Protein Albumin Triglycerides Arterial Blood Glucose Ur Specific [place] Coronavirus (PCR) 03/28/21 03/28/21 03/28/21 07:14 11:42 18:22 WBC RBC Hgb Hct MCV MCHC RDW 16.4 H Plt Count Lymph % (Auto) [place] % (Auto) [place] # (Auto) Seg Neutrophils % Seg Neuts % (Manual) Lymphocytes % (Manual) Monocytes % (Manual) Nucleated RBC % Seg Neutrophils # Seg Neutrophils # Man Lymphocytes # (Manual) Monocytes # (Manual) PT INR D-Dimer ABG pH POC ABG pCO2 POC ABG pO2 ABG pO2 ABG HCO3 ABG O2 Saturation ABG Base Excess ABG Hemoglobin ABG Oxyhemoglobin ABG Sodium ABG Potassium ABG Glucose Oxyhemoglobin Sodium Potassium Chloride Carbon Dioxide BUN Creatinine Glucose POC Glucose 145 H 169 H Lactic Acid Phosphorus Magnesium Ferritin Lactate Dehydrogenase C-Reactive Protein NT-Pro-B Natriuret Pep Total Protein Albumin Triglycerides Arterial Blood Glucose Ur Specific [place] Coronavirus (PCR) 03/28/21 03/29/21 03/29/21 23:39 04:50 04:50 WBC RBC Hgb 11.0 L Hct 34.9 L MCV MCHC RDW 15.9 H Plt Count Lymph % (Auto) [place] % (Auto) [place] # (Auto) Seg Neutrophils % Seg Neuts % (Manual) Lymphocytes % (Manual) Monocytes % (Manual) Nucleated RBC % Seg Neutrophils # Seg Neutrophils # Man Lymphocytes # (Manual) Monocytes # (Manual) PT INR D-Dimer ABG pH POC ABG pCO2 POC ABG pO2 ABG pO2 ABG HCO3 ABG O2 Saturation ABG Base Excess ABG Hemoglobin ABG Oxyhemoglobin ABG Sodium ABG Potassium ABG Glucose Oxyhemoglobin Sodium Potassium Chloride Carbon Dioxide 34 H BUN Creatinine 0.6 L Glucose 152 H POC Glucose 139 H Lactic Acid Phosphorus Magnesium Ferritin Lactate Dehydrogenase C-Reactive Protein NT-Pro-B Natriuret Pep Total Protein Albumin Triglycerides Arterial Blood Glucose Ur Specific [place] Coronavirus (PCR) 03/29/21 03/29/21 03/29/21 05:25 11:34 18:02 WBC RBC Hgb Hct MCV MCHC RDW Plt Count Lymph % (Auto) [place] % (Auto) [place] # (Auto) Seg Neutrophils % Seg Neuts % (Manual) Lymphocytes % (Manual) Monocytes % (Manual) Nucleated RBC % Seg Neutrophils # Seg Neutrophils # Man Lymphocytes # (Manual) Monocytes # (Manual) PT INR D-Dimer ABG pH POC ABG pCO2 POC ABG pO2 ABG pO2 ABG HCO3 ABG O2 Saturation ABG Base Excess ABG Hemoglobin ABG Oxyhemoglobin ABG Sodium ABG Potassium ABG Glucose Oxyhemoglobin Sodium Potassium Chloride Carbon Dioxide BUN Creatinine Glucose POC Glucose 127 H 169 H 173 H Lactic Acid Phosphorus Magnesium Ferritin Lactate Dehydrogenase C-Reactive Protein NT-Pro-B Natriuret Pep Total Protein Albumin Triglycerides Arterial Blood Glucose Ur Specific [place] Coronavirus (PCR) 03/29/21 03/30/21 03/30/21 21:42 00:01 05:36 WBC RBC Hgb Hct MCV MCHC RDW 16.7 H Plt Count Lymph % (Auto) [place] % (Auto) [place] # (Auto) Seg Neutrophils % Seg Neuts % (Manual) Lymphocytes % (Manual) Monocytes % (Manual) Nucleated RBC % Seg Neutrophils # Seg Neutrophils # Man Lymphocytes # (Manual) Monocytes # (Manual) PT INR D-Dimer ABG pH POC ABG pCO2 POC ABG pO2 ABG pO2 ABG HCO3 ABG O2 Saturation ABG Base Excess ABG Hemoglobin ABG Oxyhemoglobin ABG Sodium ABG Potassium ABG Glucose Oxyhemoglobin Sodium Potassium Chloride Carbon Dioxide BUN Creatinine Glucose POC Glucose 184 H 161 H Lactic Acid Phosphorus Magnesium Ferritin Lactate Dehydrogenase C-Reactive Protein NT-Pro-B Natriuret Pep Total Protein Albumin Triglycerides Arterial Blood Glucose Ur Specific [place] Coronavirus (PCR) 03/30/21 03/30/21 03/30/21 05:36 06:03 11:32 WBC RBC Hgb Hct MCV MCHC RDW Plt Count Lymph % (Auto) [place] % (Auto) [place] # (Auto) Seg Neutrophils % Seg Neuts % (Manual) Lymphocytes % (Manual) Monocytes % (Manual) Nucleated RBC % Seg Neutrophils # Seg Neutrophils # Man Lymphocytes # (Manual) Monocytes # (Manual) PT INR D-Dimer ABG pH POC ABG pCO2 POC ABG pO2 ABG pO2 ABG HCO3 ABG O2 Saturation ABG Base Excess ABG Hemoglobin ABG Oxyhemoglobin ABG Sodium ABG Potassium ABG Glucose Oxyhemoglobin Sodium Potassium Chloride Carbon Dioxide BUN Creatinine 0.5 L Glucose 127 H POC Glucose 130 H 183 H Lactic Acid Phosphorus Magnesium Ferritin Lactate Dehydrogenase C-Reactive Protein NT-Pro-B Natriuret Pep Total Protein Albumin Triglycerides Arterial Blood Glucose Ur Specific [place] Coronavirus (PCR) Chest x-ray: image reviewed (trach in good position; persistent bilateral pulmonary infiltrates) Allied health notes reviewed: RT
[2021-03-30 15:18] LABS: ABG Base Excess 9.1 mmol/L (-2.0-3.0); ABG HCO3 34.9 mmol/L (20.0-26.0); ABG Methemoglobin 0.7 % (0.0-1.5); ABG Oxygen Saturation 95.4 % (95.0-99.0); ABG PCO2 53.7 mm Hg; ABG PH 7.431 pH Units (7.350-7.450); ABG PO2 67.2 mm Hg (80.0-90.0)
--- NOTE | 2021-03-30 17:59 | Progress Note ---
Assessment and Plan 61 yo M s/p trach and PEG, fiberoptic bronchoscopy, POD 1 CXR - good positioning of trach Plan: 1. wean vent per ICU team 2. adv TF as naomi to goal 3. trach care 4. will s/o Thank you, please call with questions. Subjective Date of service: 03/30/21 Narrative: Pt seen and examined. No overnight events. Objective Vital Signs - 12hr 03/30/21 03/30/21 03/30/21 06:00 06:16 06:30 Temperature Pulse Rate 117 H 117 H 113 H Pulse Rate [ From Monitor] Respiratory 35 H 35 H 24 Rate Blood Pressure 184/97 184/97 158/51 O2 Sat by Pulse 91 93 93 Oximetry O2 Sat by Pulse Oximetry [ Assessment] 03/30/21 03/30/21 03/30/21 06:46 07:00 07:15 Temperature 99.6 F Pulse Rate 110 H 109 H 110 H Pulse Rate [ From Monitor] Respiratory 21 18 Rate Blood Pressure 158/51 143/80 143/80 O2 Sat by Pulse 94 96 98 Oximetry O2 Sat by Pulse Oximetry [ Assessment] 03/30/21 03/30/21 03/30/21 07:16 07:29 07:30 Temperature Pulse Rate 109 H 109 H Pulse Rate [ From Monitor] Respiratory 19 19 Rate Blood Pressure 143/80 139/82 O2 Sat by Pulse 98 97 Oximetry O2 Sat by Pulse 97 Oximetry [ Assessment] 03/30/21 03/30/21 03/30/21 07:46 08:00 08:16 Temperature 99.4 F Pulse Rate 109 H 109 H 113 H Pulse Rate [ 110 H From Monitor] Respiratory 21 19 30 H Rate Blood Pressure 139/82 138/78 138/78 O2 Sat by Pulse 98 98 98 Oximetry O2 Sat by Pulse Oximetry [ Assessment] 03/30/21 03/30/21 03/30/21 08:30 08:46 09:00 Temperature Pulse Rate 121 H 123 H 116 H Pulse Rate [ From Monitor] Respiratory 32 H 44 H 12 Rate Blood Pressure 190/96 190/96 140/64 O2 Sat by Pulse 98 96 97 Oximetry O2 Sat by Pulse Oximetry [ Assessment] 03/30/21 03/30/21 03/30/21 09:16 09:30 09:33 Temperature Pulse Rate 112 H 111 H 111 H Pulse Rate [ From Monitor] Respiratory 19 19 Rate Blood Pressure 140/64 135/66 135/66 O2 Sat by Pulse 97 97 Oximetry O2 Sat by Pulse Oximetry [ Assessment] 03/30/21 03/30/21 03/30/21 09:46 10:00 10:16 Temperature Pulse Rate 110 H 109 H 109 H Pulse Rate [ From Monitor] Respiratory 13 17 17 Rate Blood Pressure 135/66 119/65 119/65 O2 Sat by Pulse 98 97 97 Oximetry O2 Sat by Pulse Oximetry [ Assessment] 03/30/21 03/30/21 03/30/21 10:30 10:46 11:00 Temperature Pulse Rate 108 H 106 H 108 H Pulse Rate [ From Monitor] Respiratory 20 17 24 Rate Blood Pressure 111/57 111/57 100/60 O2 Sat by Pulse 97 97 97 Oximetry O2 Sat by Pulse Oximetry [ Assessment] 03/30/21 03/30/21 03/30/21 11:16 11:30 11:36 Temperature Pulse Rate 107 H 106 H 108 H Pulse Rate [ From Monitor] Respiratory 20 19 Rate Blood Pressure 100/60 115/66 115/66 O2 Sat by Pulse 98 97 97 Oximetry O2 Sat by Pulse Oximetry [ Assessment] 03/30/21 03/30/21 03/30/21 11:46 11:51 12:00 Temperature 99.5 F 99.5 F Pulse Rate 105 H 105 H Pulse Rate [ 109 H From Monitor] Respiratory 20 19 Rate Blood Pressure 115/66 112/61 O2 Sat by Pulse 97 97 Oximetry O2 Sat by Pulse Oximetry [ Assessment] 03/30/21 03/30/21 03/30/21 12:16 12:30 12:46 Temperature Pulse Rate 103 H 104 H 103 H Pulse Rate [ From Monitor] Respiratory 18 28 H 21 Rate Blood Pressure 112/61 125/73 125/73 O2 Sat by Pulse 97 96 96 Oximetry O2 Sat by Pulse Oximetry [ Assessment] 03/30/21 03/30/21 03/30/21 13:00 13:16 13:30 Temperature Pulse Rate 103 H 101 H 103 H Pulse Rate [ From Monitor] Respiratory 19 22 22 Rate Blood Pressure 101/60 101/60 111/64 O2 Sat by Pulse 96 96 97 Oximetry O2 Sat by Pulse Oximetry [ Assessment] 03/30/21 03/30/21 03/30/21 13:46 13:52 14:00 Temperature Pulse Rate 104 H 102 H 102 H Pulse Rate [ From Monitor] Respiratory 19 17 Rate Blood Pressure 111/64 111/64 156/92 O2 Sat by Pulse 97 99 Oximetry O2 Sat by Pulse Oximetry [ Assessment] 03/30/21 03/30/21 03/30/21 14:16 14:30 14:46 Temperature Pulse Rate 113 H 109 H Pulse Rate [ From Monitor] Respiratory 26 H 22 Rate Blood Pressure 156/92 133/44 133/44 O2 Sat by Pulse 93 95 Oximetry O2 Sat by Pulse Oximetry [ Assessment] 03/30/21 03/30/21 03/30/21 15:00 15:16 15:30 Temperature Pulse Rate 108 H 107 H 107 H Pulse Rate [ From Monitor] Respiratory 22 24 25 H Rate Blood Pressure 155/74 155/74 147/74 O2 Sat by Pulse 96 96 97 Oximetry O2 Sat by Pulse Oximetry [ Assessment] 03/30/21 03/30/21 03/30/21 15:35 15:46 16:00 Temperature Pulse Rate 107 H 107 H 108 H Pulse Rate [ 105 H From Monitor] Respiratory 23 22 22 Rate Blood Pressure 147/74 147/74 144/80 O2 Sat by Pulse 97 97 97 Oximetry O2 Sat by Pulse Oximetry [ Assessment] 03/30/21 03/30/21 03/30/21 16:16 16:30 16:51 Temperature 99.9 F H Pulse Rate 107 H 108 H Pulse Rate [ From Monitor] Respiratory 23 22 Rate Blood Pressure 144/80 143/81 O2 Sat by Pulse 97 98 Oximetry O2 Sat by Pulse Oximetry [ Assessment] - General physical appearance Narrative Exam: Gen: On vent, sedated ENT: trach in place without swelling or bleeding CV: S1, S2+ Resp: even and unlabored Abd: soft, NT, ND. PEG in place with bumper at 4cm at skin. TF running. - Labs 03/30/21 05:36 03/30/21 05:36 Diabetes panel 03/30/21 Range/Units 05:36 Sodium 140 (137-145) mmol/L Potassium 4.5 (3.6-5.0) mmol/L Chloride 101.3 (98-107) mmol/L Carbon Dioxide 29 (22-30) mmol/L BUN 11 (9-20) mg/dL Creatinine 0.5 L (0.8-1.3) mg/dL Glucose 127 H (75-100) mg/dL Calcium 9.0 (8.4-10.2) mg/dL Calcium panel 03/30/21 Range/Units 05:36 Calcium 9.0 (8.4-10.2) mg/dL Pituitary panel 03/30/21 Range/Units 05:36 Sodium 140 (137-145) mmol/L Potassium 4.5 (3.6-5.0) mmol/L Chloride 101.3 (98-107) mmol/L Carbon Dioxide 29 (22-30) mmol/L BUN 11 (9-20) mg/dL Creatinine 0.5 L (0.8-1.3) mg/dL Glucose 127 H (75-100) mg/dL Calcium 9.0 (8.4-10.2) mg/dL Adrenal panel 03/30/21 Range/Units 05:36 Sodium 140 (137-145) mmol/L Potassium 4.5 (3.6-5.0) mmol/L Chloride 101.3 (98-107) mmol/L Carbon Dioxide 29 (22-30) mmol/L BUN 11 (9-20) mg/dL Creatinine 0.5 L (0.8-1.3) mg/dL Glucose 127 H (75-100) mg/dL Calcium 9.0 (8.4-10.2) mg/dL
[2021-03-30] MEDS: FUROSEMIDE 20 MG/2 ML INJ IV SCH (18:36)
[2021-03-30] MEDS: INSULIN GLARGINE 100 UNITS/ML SUB-Q SCH (21:07)
[2021-03-30] MEDS ORDERED: ENOXAPARIN 30 MG/0.3 ML INJ SUB-Q SCH (22:00)
[2021-03-31] MEDS: INSULIN LISPRO 100 UNIT/ML SUB-Q SCH ×4 (00:26→17:35)
[2021-03-31] MEDS: chlordiazePOXIDE 25 MG CAP PO SCH ×4 (00:38→17:34)
[2021-03-31] MEDS: MIDAZOLAM 2 MG/2 ML INJ IV PRN ×5 (04:09→21:33)
[2021-03-31] MEDS: hydrALAZINE 25 MG TAB PO SCH ×3 (05:49→21:33)
[2021-03-31] MEDS: METOCLOPRAMIDE 10 MG/2 ML INJ IV SCH ×2 (05:50→14:59)
[2021-03-31] MEDS: fentaNYL DRIP Premix 2,000 MCG/100 ML BAG IV SCH ×2 (08:53→22:03)
[2021-03-31] MEDS: SENNOSIDES/DOCUSATE SODIUM 8.6/50 MG TAB FEEDTUBE SCH ×2 (09:05→21:31)
[2021-03-31] MEDS: ASCORBIC ACID 500 MG TAB PO SCH ×2 (09:05→21:32)
[2021-03-31] MEDS: FAMOTIDINE 20 MG TAB FEEDTUBE SCH ×2 (09:05→21:32)
[2021-03-31] MEDS: ZINC SULFATE 220 MG CAP PO SCH ×2 (09:05→21:34)
[2021-03-31] MEDS: amLODIPine 5 MG TAB PO SCH (09:05)
[2021-03-31] MEDS: QUEtiapine 100 MG TAB PO SCH ×2 (09:05→21:31)
[2021-03-31] MEDS: DOXAZOSIN 1 MG TAB PO SCH (09:06)
[2021-03-31] MEDS: ENOXAPARIN 60 MG/0.6 ML INJ SUB-Q SCH (09:06)
[2021-03-31] MEDS: predniSONE 10 MG TAB PO SCH (09:06)
[2021-03-31] MEDS: ARFORMOTEROL 15 MCG/2 ML NEBU IH SCH ×2 (09:21→19:41)
[2021-03-31] MEDS: BUDESONIDE 0.25 MG/2 ML NEBU IH SCH ×2 (09:21→19:41)
[2021-03-31] MEDS: ACETAMINOPHEN 325 MG TAB PO PRN (09:40)
[2021-03-31] MEDS: FUROSEMIDE 20 MG/2 ML INJ IV SCH (10:54)
[2021-03-31] MEDS: METOPROLOL TARTRATE 25 MG TAB PO SCH ×2 (10:54→21:31)
--- NOTE | 2021-03-31 11:03 | Progress Note ---
<DEBBY ELLISON - Last Filed: 03/31/21 18:08> Assessment and Plan Assessment and plan: This is a 61-year-old male with past medical history of HTN and DM admitted for sepsis and acute hypoxic respiratory failure 2/2 COVID pneumonia requiring ventilatory support. Hospital Course to Date: 03/09: The patient was seen and evaluated today, and he was found to be hemodynamically stable. The patient is currently on BiPAP for possible COVID-19 pneumonia. He was started on Lovenox 1mg/kg for DVT ppx in the setting of d- dimer > 10,000. Infectious Disease was consulted. The patient is pending a TTE. 03/10: No acute events overnight, patient was intubated in the afternoon transferred to ICU 03/11: Patient started on Lantus, free water flushes increased, propofol drip resumed and oral antihypertensive added. 03/12: lantus increased, k at 5, will monitor. I updated his family and his stated that he is not vaccinated. He does have HTN and she will call the RN to update home medications. She did say he takes bystolic and amlopine. She inquired about ventilator and lab work. She had no further questions. 03/13: KVNG overnight. Patient remains hyperglycemic, basal insulin adjusted and increased to Q12hrs. Patient is overall net positive since admit X1 dose of IV lasix, repeat BMP this afternoon. 03/14: Failed SAT this am due to increase agitation, tachycardia and hypertension. Remains on propofol and fentanyl gtt. Hyperkalemia treated with PO kayaxalate. Patient responded to IV lasix yesterday additional dose again today for a net negative balance. Repeat BMP this afternoon. Insulin adjusted for hyperglycemia. 03/15: Remains encephalopathic, not following commansd. Orders placed for CT head/Brain and Neuro consulted. Rectal bleeding subsided, most likely due to hemorrhoids. H&H is stable will continue to monitor. Kayaxexalate for high K, repeat labs 4 to 6hrs post treatment. 03/16: Still agiated this am, CT head with no acute Abn. CXR and ABG noted- evolving pna and worsening hypoxia, now with low grade fevers. Sputum culture ordered, IV Abx added, ID on cosult. 03/17: This am ABG noted, hypoxia improved. Continue to wean FiO2 as tolerated. Still with low grade fevers, on IV Abx per ID. Still with periods of confusion despite sedation, seroquel increased. F/u CXR in the am 03/18: still very agitated especially when off sedation, with hypertension and tachycardia. Continue sedation for RASS -2, PRN antihypertensive for SPB greater than 160. This febrile this am, continue current IV abx per ID 03/19: Patient afebrile overnight, continue IV Abx per ID. ABG also improved this am, continue to wean FIO2 as tolerated. PRN antihypertensive for hypertension. 03/20: Hyperkalemia treated with Kayexalate, Good discontinued, vancomycin and cefepime stopped started Bactrim by ID. Steroid taper started. 03/21: BB started for hypertension, Seroquel increased for agitation and Librium started no acute events reported overnight. [facility] made vent changes 03/22: Adjustment to anxiolytics, respiratory rate on ventilator per [facility]. Patient noted to have bleeding hemorrhoids with clot, requested RN to remove bowel management system and will order Preparation H. 03/23: Given no confirmed DVT or PE (only superficial thrombus noted on Dopplers) therapeutic Lovenox changed to prophylactic Lovenox. Started on doxazosin to help with retention. Consulted surgery for tracheostomy and propofol discontinued. 03/24: Surgery consult completed, patient changed to prophylaxis anticoagulation, started on doxazosin yesterday with plans to remove Good catheter in 48 hours. Patient with slight hypokalemia today and given Kayexalate. No acute events reported overnight. 03/25: No acute events reported overnight. Patient remains on fentanyl drip and on CPAP trial this morning. 03/26: no acute events reported overnight. placed on CPAP this AM, remains on fent/librium. scheduled for trach/peg this week. 03/27: Hypoglycemic this am, will decreased lantus to Qhs. Plan for possible Trach and Peg by Gen Surg this am. Case management to arrange possible LTAC placement 03/28: KVNG overnight. Tolerating PST this am. Plan for trach and PEG tomorrow by Gen. Surgery, NPO after midnight. 03/29: No significant changes overnight. Plan for trach and Peg today. Case management to arrange possible LTAC placement 03/30. S/p Trach and PEG, no complications noted. High residual yesterday despite NPO status, reglan added X2 days. Per RN no residual this am, patient is tolerating TF. Continue to advance TF as tolerated. Norvasc added for hypertension. Pitting edema also appreciated, some diuretic might be beneficial, will d/w CCM. Continue daily PST as tolerated. 03/31: Patient remains on the vent still on fentanyl gtt with periods of agitation. PRN analgesia added, plan to start weaning off fentanyl gtt. Febrile this am, completed IV abx course. Will panculture for now, ID is also following. Assessment and Plan #Acute Hypoxic Respiratory Failure #COVID Pneumonia - Intubated on 03/10 due to worsen hypoxia on BIPAP - 2/2 s/p Tracheostomy - Vent setting:PRVC-45%,6,12,450 - No ABG this am - CCM consulted, appreciate recommendations - Continue IV Steroids and Nebs per CCM - keep patient net negative for better lung compliance - VAP bundle addressed - Aspiration precaution HOB above 30 - Daily SBT and SAT trials as tolerated - Daily ABG and CXR - Continue SPO2 monitoring for SPO2 goal above 92% #Sepsis #COVID Pneumonia #Leukocytosis #Lactic Acidosis- Resolved - COVID PCR positive - UA neg, Blood cultures and Sputum culture NGTD - repeat Bculture NGTD, 03/17 Sputum Cult + Stenotrophomonas - Infectious disease consulted, appreciate recommendation - S/p Actemra 03/10/2021 - Completed X5days course of IV remdesivir - Completed IV Abx course - Monitor WBC and temperature curve - Trend CBC #Neuro:Acute Encephalopathy - Intubated and sedated on fentanyl RASS -2 - CT head/brain no acute Abn. - On Seroquel and Librium - Avoid benzodiazepine to reduce the possibility of delirium - Prn analgesia for CPOT greater than 3 - Maintenance of sleep-wake cycle - Neurology on consult #CV: Hypertension - High BP overnight - 03/09 Echocardiogram shows a mildly dilated ascending aorta, normal LV systolic function, mild concentric LVH, LVEF 60 to 65% - Continue current antihypertensive regimen - Norvasc added for better control - PRN Labetalol for SBP above 160 - Continue Blood pressure monitoring per protocol #Hyponatremia-resolved - Strict intake and output - Avoid nephrotoxic medications; Renally dose medications - Good in place - Monitor and replace electrolytes as needed -Trend BMP #Elevated D-dimer - Most likely due to COVID - Bilateral lower extremity ultrasounds negative for DVT, superficial thrombus in left gastrocnemius vein - CTA chest shows no gross pulm embolism - H&H stable - Continue AC- Lovenox SubQ - SCDs to BLE while in bed - Transfuse hemoglobin less than 7 - Monitor for signs of bleeding #Endo:Type 2 DM - Hypoglycemic this am - Continue high dose SSI Q6hrs - Lantus qHs - Avoid Hypoglycemia The high probability of a clinically significant, sudden or life threatening deterioration of the [Respiratory] system(s) required my full and direct attention, intervention and personal management. The aggregate critical care time was [60] minutes. This time is in addition to time spent performing reported procedures but includes the following: [x] Data Review and interpretation [x] Patient assessment and monitoring of vital signs [x] Documentation [x] Medication orders and management Disposition Plan: ICU Total Time Spent with Patient (Minutes): 60 History Interval history: Patient seen and examined at the bedside. Remains on the vent and on fentanyl gtt. Per RN patient with increase agitation this morning IV versed administered twice. Patient is also febrile this am Hospitalist Physical - Constitutional Vitals: Temp Pulse Resp BP Pulse Ox 101 F H 119 H 28 H 135/81 99 03/31/21 08:00 03/31/21 10:30 03/31/21 10:30 03/31/21 10:30 03/31/21 10:30 General appearance: Present: no acute distress, well-nourished, obese, other (On the vent, on sedation) - EENT Eyes: Present: PERRL - Respiratory Respiratory effort: accessory muscle use Respiratory: bilateral: rhonchi - Cardiovascular Rhythm: regular Heart Sounds: Present: S1 & S2 - Extremities Extremities: no ischemia, pulses intact, pulses symmetrical Extremity abnormal: edema - Peripheral Assessment Generalized Edema Type: Non-pitting Edema Degree: 2+ Capillary Refill: < 3 seconds Skin Temperature: Warm Peripheral Pulses: within normal limits - Abdominal General gastrointestinal: soft, non-distended, normal bowel sounds - Integumentary Integumentary: Present: warm, dry - Psychiatric Psychiatric: other (On the vent, on sedation) - Neurologic Neurologic: other (On the vent, on sedation) - Allied Health Allied health notes reviewed: nursing, case management Results - Labs CBC & Chem 7: 03/31/21 13:30 03/30/21 05:36 Labs: Laboratory Last Values WBC 9.6 K/mm3 (4.5-11.0) 03/30/21 05:36 RBC 4.11 M/mm3 (3.65-5.03) 03/30/21 05:36 Hgb 12.2 gm/dl (11.8-15.2) 03/30/21 05:36 Hct 38.6 % (35.5-45.6) 03/30/21 05:36 MCV 94 fl (84-94) 03/30/21 05:36 MCH 30 pg (28-32) 03/30/21 05:36 MCHC 32 % (32-34) 03/30/21 05:36 RDW 16.7 % (13.2-15.2) H 03/30/21 05:36 Plt Count 183 K/mm3 (140-440) 03/30/21 05:36 Lymph % (Auto) 12.6 % (13.4-35.0) L 03/17/21 04:40 Phelps % (Auto) 11.3 % (0.0-7.3) H 03/17/21 04:40 Eos % (Auto) 0.4 % (0.0-4.3) 03/17/21 04:40 Baso % (Auto) 0.8 % (0.0-1.8) 03/17/21 04:40 Lymph # (Auto) 1.8 K/mm3 (1.2-5.4) 03/17/21 04:40 Phelps # (Auto) 1.6 K/mm3 (0.0-0.8) H 03/17/21 04:40 Eos # (Auto) 0.1 K/mm3 (0.0-0.4) 03/17/21 04:40 Baso # (Auto) 0.1 K/mm3 (0.0-0.1) 03/17/21 04:40 Add Manual Diff Complete 03/10/21 04:29 Total Counted 100 03/10/21 04:29 Seg Neutrophils % 74.9 % (40.0-70.0) H 03/17/21 04:40 Seg Neuts % (Manual) 94.0 % (40.0-70.0) H 03/10/21 04:29 Band Neutrophils % 0 % 03/10/21 04:29 Lymphocytes % (Manual) 1.0 % (13.4-35.0) L 03/10/21 04:29 Reactive Lymphs % (Man) 0 % 03/10/21 04:29 Monocytes % (Manual) 5.0 % (0.0-7.3) 03/10/21 04:29 Eosinophils % (Manual) 0 % (0.0-4.3) 03/10/21 04:29 Basophils % (Manual) 0 % (0.0-1.8) 03/10/21 04:29 Metamyelocytes % 0 % 03/10/21 04:29 Myelocytes % 0 % 03/10/21 04:29 Promyelocytes % 0 % 03/10/21 04:29 Blast Cells % 0 % 03/10/21 04:29 Nucleated RBC % 3.0 % (0.0-0.9) H 03/10/21 04:29 Seg Neutrophils # 10.5 K/mm3 (1.8-7.7) H 03/17/21 04:40 Seg Neutrophils # Man 19.4 K/mm3 (1.8-7.7) H 03/10/21 04:29 Band Neutrophils # 0.0 K/mm3 03/10/21 04:29 Lymphocytes # (Manual) 0.2 K/mm3 (1.2-5.4) L 03/10/21 04:29 Abs React Lymphs (Man) 0.0 K/mm3 03/10/21 04:29 Monocytes # (Manual) 1.0 K/mm3 (0.0-0.8) H 03/10/21 04:29 Eosinophils # (Manual) 0.0 K/mm3 (0.0-0.4) 03/10/21 04:29 Basophils # (Manual) 0.0 K/mm3 (0.0-0.1) 03/10/21 04:29 Metamyelocytes # 0.0 K/mm3 03/10/21 04:29 Myelocytes # 0.0 K/mm3 03/10/21 04:29 Promyelocytes # 0.0 K/mm3 03/10/21 04:29 Blast Cells # 0.0 K/mm3 03/10/21 04:29 WBC Morphology Not Reportable 03/10/21 04:29 Hypersegmented Neuts Not Reportable 03/10/21 04:29 Hyposegmented Neuts Not Reportable 03/10/21 04:29 Hypogranular Neuts Not Reportable 03/10/21 04:29 Smudge Cells Not Reportable 03/10/21 04:29 Toxic Granulation Not Reportable 03/10/21 04:29 Toxic Vacuolation Not Reportable 03/10/21 04:29 Dohle Bodies Not Reportable 03/10/21 04:29 Pelger-Huet Anomaly Not Reportable 03/10/21 04:29 Mely Rods Not Reportable 03/10/21 04:29 Platelet Estimate Consistent w auto 03/10/21 04:29 Clumped Platelets Not Reportable 03/10/21 04:29 Plt Clumps, EDTA Not Reportable 03/10/21 04:29 Large Platelets Not Reportable 03/10/21 04:29 Giant Platelets Not Reportable 03/10/21 04:29 Platelet Satelliting Not Reportable 03/10/21 04:29 Plt Morphology Comment Not Reportable 03/10/21 04:29 RBC Morphology Normal 03/10/21 04:29 Dimorphic RBCs Not Reportable 03/10/21 04:29 Polychromasia Not Reportable 03/10/21 04:29 Hypochromasia Not Reportable 03/10/21 04:29 Poikilocytosis Not Reportable 03/10/21 04:29 Anisocytosis Not Reportable 03/10/21 04:29 Microcytosis Not Reportable 03/10/21 04:29 Macrocytosis Not Reportable 03/10/21 04:29 Spherocytes Not Reportable 03/10/21 04:29 Pappenheimer Bodies Not Reportable 03/10/21 04:29 Sickle Cells Not Reportable 03/10/21 04:29 Target Cells Not Reportable 03/10/21 04:29 Tear Drop Cells Not Reportable 03/10/21 04:29 Ovalocytes Not Reportable 03/10/21 04:29 Helmet Cells Not Reportable 03/10/21 04:29 Longo-[place] Bodies Not Reportable 03/10/21 04:29 [place] Rings Not Reportable 03/10/21 04:29 Shama Cells Not Reportable 03/10/21 04:29 Bite Cells Not Reportable 03/10/21 04:29 Crenated Cell Not Reportable 03/10/21 04:29 Elliptocytes Not Reportable 03/10/21 04:29 Acanthocytes (Spur) Not Reportable 03/10/21 04:29 Rouleaux Not Reportable 03/10/21 04:29 Hemoglobin C Crystals Not Reportable 03/10/21 04:29 Schistocytes Not Reportable 03/10/21 04:29 Malaria parasites Not Reportable 03/10/21 04:29 Shaheen Bodies Not Reportable 03/10/21 04:29 Hem Pathologist Commnt No 03/10/21 04:29 PT 13.0 Sec. (12.2-14.9) 03/29/21 04:50 INR 0.88 (0.87-1.13) 03/29/21 04:50 APTT 28.0 Sec. (24.2-36.6) 03/08/21 20:24 D-Dimer 1359.12 ng/mlDDU (0-234) H 03/17/21 04:40 ABG pH 7.431 pH Units (7.350-7.450) 03/30/21 15:00 POC ABG pCO2 71.9 mmHg (32.0-48.0) H 03/12/21 21:54 ABG pCO2 53.7 mm Hg 03/30/21 15:00 POC ABG pO2 53.6 mmHg (83-108) L 03/12/21 21:54 ABG pO2 67.2 mm Hg (80.0-90.0) L 03/30/21 15:00 POC ABG HCO3 30.0 03/12/21 21:54 ABG HCO3 34.9 mmol/L (20.0-26.0) H 03/30/21 15:00 ABG O2 Saturation 95.4 % (95.0-99.0) 03/30/21 15:00 ABG O2 Content 15.3 (0.0-44) 03/30/21 15:00 POC ABG Base Excess 0.5 03/12/21 21:54 ABG Base Excess 9.1 mmol/L (-2.0-3.0) H 03/30/21 15:00 ABG Hemoglobin 11.6 gm/dl (14.0-18.0) L 03/30/21 15:00 ABG Oxyhemoglobin 84.8 (94-98) L 03/12/21 21:54 ABG Carboxyhemoglobin 1.8 % (0.0-5.0) 03/30/21 15:00 ABG Methemoglobin 0.7 % (0.0-1.5) 03/30/21 15:00 ABG Sodium 134.2 mmol/L (136.0-145.0) L 03/12/21 21:54 ABG Potassium 4.9 mmol/L (3.40-4.50) H 03/12/21 21:54 ABG Chloride 99.0 mmol/L (98-107) 03/12/21 21:54 ABG Glucose 306 mg/dL (65-95) H 03/12/21 21:54 Oxyhemoglobin 93.0 % (95.0-99.0) L 03/30/21 15:00 Carboxyhemoglobin 0.6 (0.5-1.5) 03/12/21 21:54 FiO2 40 % 03/30/21 15:00 FiO2 % 50.0 03/12/21 21:54 Sodium 140 mmol/L (137-145) 03/30/21 05:36 Potassium 4.5 mmol/L (3.6-5.0) 03/30/21 05:36 Chloride 101.3 mmol/L (98-107) 03/30/21 05:36 Carbon Dioxide 29 mmol/L (22-30) 03/30/21 05:36 Anion Gap 14 mmol/L 03/30/21 05:36 BUN 11 mg/dL (9-20) 03/30/21 05:36 Creatinine 0.5 mg/dL (0.8-1.3) L 03/30/21 05:36 Estimated GFR > 60 ml/min 03/30/21 05:36 BUN/Creatinine Ratio 22 % 03/30/21 05:36 Glucose 127 mg/dL (75-100) H 03/30/21 05:36 POC Glucose 180 mg/dL (70-105) H 03/31/21 05:44 Lactic Acid 1.90 mmol/L (0.7-2.0) 03/08/21 23:51 Calcium 9.0 mg/dL (8.4-10.2) 03/30/21 05:36 Phosphorus TNR 02/01/22 07:14 Magnesium TNR 03/28/21 07:14 Ferritin 976.4 ng/mL (30.0-300.0) H 03/15/21 04:00 Total Bilirubin 0.20 mg/dL (0.1-1.2) 03/12/21 08:03 AST 10 units/L (5-40) 03/12/21 08:03 ALT 16 units/L (7-56) 03/12/21 08:03 Alkaline Phosphatase 77 units/L (35-129) 03/12/21 08:03 Lactate Dehydrogenase 630 units/L (91-180) H 03/15/21 06:06 C-Reactive Protein 0.40 mg/dL (0.00-1.30) 03/17/21 04:40 NT-Pro-B Natriuret Pep 1053 pg/mL (0-900) H 03/08/21 20:24 Total Protein 6.0 g/dL (6.3-8.2) L 03/12/21 08:03 Albumin 2.9 g/dL (3.9-5) L 03/12/21 08:03 Albumin/Globulin Ratio 0.9 % 03/12/21 08:03 Triglycerides 305 mg/dL (2-149) H 03/22/21 07:26 Procalcitonin 0.05 ng/mL (<0.15) 03/17/21 04:40 Arterial Blood Glucose 306 mg/dL (65-95) H 03/12/21 21:54 Arterial Blood Ionized Calcium 5.0 mg/dL (4.6-5.3) 03/12/21 21:54 Urine Color Yellow (Yellow) 03/09/21 04:10 Urine Turbidity Slightly-cloudy (Clear) 03/09/21 04:10 Urine pH 5.0 (5.0-7.0) 03/09/21 04:10 Ur Specific [place] 1.041 (1.003-1.030) H 03/09/21 04:10 Urine Protein 100 mg/dl mg/dL (Negative) 03/09/21 04:10 Urine Glucose (UA) Neg mg/dL (Negative) 03/09/21 04:10 Urine Ketones Neg mg/dL (Negative) 03/09/21 04:10 Urine Blood Mod (Negative) 03/09/21 04:10 Urine Nitrite Neg (Negative) 03/09/21 04:10 Urine Bilirubin Neg (Negative) 03/09/21 04:10 Urine Urobilinogen 2.0 mg/dL (<2.0) 03/09/21 04:10 Ur Leukocyte Esterase Neg (Negative) 03/09/21 04:10 Urine WBC (Auto) 4.0 /HPF (0.0-6.0) 03/09/21 04:10 Urine RBC (Auto) 1.0 /HPF (0.0-6.0) 03/09/21 04:10 Urine Bacteria (Auto) 1+ /HPF (Negative) 03/09/21 04:10 Urine Mucus Few /HPF 03/09/21 04:10 Coronavirus (PCR) Positive (Negative) A 03/09/21 08:00 Miscellaneous Test Flexitest 1 03/16/21 13:14 Good/IV: Voiding Method Indwelling Catheter Active Medications - Current Medications Current Medications: Generic Name Dose Route Start Last Admin Trade Name Freq PRN Reason Stop Dose Admin Acetaminophen 650 mg 03/09/21 01:26 03/31/21 09:40 Acetaminophen 325 Mg Tab PO 650 mg Q4H PRN Administration Pain MILD(1-3)/Fever >100.5/RAYO Albuterol 2.5 mg 03/09/21 01:26 03/18/21 21:06 Albuterol 2.5 Mg/3 Ml Nebu IH 2.5 mg Q4HRT PRN Administration Shortness Of Breath Amlodipine Besylate 5 mg 03/30/21 10:00 03/31/21 09:05 Amlodipine 5 Mg Tab PO 5 mg QDAY BLANCA Administration Arformoterol Tartrate 15 mcg 03/11/21 20:00 03/31/21 09:21 Arformoterol 15 Mcg/2 Ml Nebu IH 15 mcg Q12HRT BLANCA Administration Ascorbic Acid 500 mg 03/10/21 14:00 03/31/21 09:05 Ascorbic Acid 500 Mg Tab PO 500 mg BID BLANCA Administration Bisacodyl 10 mg 03/26/21 13:43 03/26/21 13:51 Bisacodyl 10 Mg Rect Supp GA 10 mg QDAY PRN Administration Constipation Budesonide 0.25 mg 03/11/21 20:00 03/31/21 09:21 Budesonide 0.25 Mg/2 Ml Nebu IH 0.25 mg Q12HRT BLANCA Administration Chlordiazepoxide HCl 75 mg 03/22/21 18:00 03/31/21 06:06 Chlordiazepoxide 25 Mg Cap PO 75 mg Q6HR BLANCA Administration Dextrose 0 ml 03/20/21 10:52 Dextrose 10% *Hypoglycemia IV PRN PRN Hypoglycemia Doxazosin Mesylate 1 mg 03/23/21 14:00 03/31/21 09:06 Doxazosin 1 Mg Tab PO 1 mg QDAY BLANCA Administration Enoxaparin Sodium 30 mg 04/01/21 10:00 Enoxaparin 30 Mg/0.3 Ml Inj SUB-Q Q12HR BLANCA Famotidine 20 mg 03/12/21 22:00 03/31/21 09:05 Famotidine 20 Mg Tab FEEDTUBE 20 mg BID BLANCA Administration Furosemide 20 mg 03/30/21 18:00 03/31/21 10:54 Furosemide 20 Mg/2 Ml Inj IV 04/04/21 17:59 20 mg QDAY BLANCA Administration Hydralazine HCl 50 mg 03/23/21 14:26 03/31/21 05:49 Hydralazine 25 Mg Tab PO 50 mg Q8HR BLANCA Administration Hydrophilic Ointment 1 applic 03/10/21 15:39 Lip Therapy Vaseline TP Q2HR PRN Dry Lips Fentanyl Citrate 2,000 mcg in 100 mls @ 5.897 mls/hr 03/10/21 17:00 03/31/21 08:53 Fentanyl Drip Premix IV 2 mcg/kg/hr TITR BLANCA 11.793 mls/hr Administration Protocol 1 MCG/KG/HR Propofol 1,000 mg in 100 mls @ 3.507 mls/hr 03/11/21 17:00 03/22/21 18:02 Diprivan 10 Mg/Ml IV 0 mcg/kg/min TITR BLANCA 0 mls/hr Titration Protocol 5 MCG/KG/MIN Insulin Glargine 15 units 03/29/21 22:00 03/30/21 21:07 Insulin Glargine 100 Units/Ml SUB-Q 15 units QHS BLANCA Administration Insulin Human Lispro 0 unit 03/11/21 18:00 03/31/21 05:50 Insulin Lispro 100 Unit/Ml SUB-Q 3 unit Q6HR BLANCA Administration Protocol Labetalol HCl 10 mg 03/12/21 21:13 03/21/21 16:54 Labetalol 20 Mg/4 Ml Inj IV 10 mg Q6H PRN Administration Blood Pressure Metoclopramide HCl 5 mg 03/29/21 22:00 03/31/21 05:50 Metoclopramide 10 Mg/2 Ml Inj IV 03/31/21 21:59 5 mg Q8HR BLANCA Administration Metoprolol Tartrate 12.5 mg 03/21/21 22:00 03/31/21 10:54 Metoprolol Tartrate 25 Mg Tab PO 12.5 mg BID BLANCA Administration Midazolam HCl 2 mg 03/15/21 08:49 03/31/21 09:13 Midazolam 2 Mg/2 Ml Inj IV 2 mg Q2H PRN Administration VENT SYNCHRONY Multi-Ingred Cream/Lotion/Oil/Oint 1 applic 03/10/21 15:39 Mineral Oil/Petrolatum, White Ophth Oint 3.5 Gm OU Q4HR PRN Dry Eye(s) Ondansetron HCl 4 mg 03/09/21 01:26 Ondansetron 4 Mg/2 Ml Inj IV Q8H PRN Nausea And Vomiting Oxycodone HCl 5 mg 03/30/21 12:14 03/31/21 07:45 Oxycodone 5 Mg Tab PO 5 mg Q6H PRN Administration Pain, Moderate (4-6) Phenyleph/Shark Oil/Min Oil/Petrol 1 applic 03/22/21 17:35 03/29/21 03:59 Pe/Mo/Pet,Wh 10 Applic/28 Gm Tube GA 1 applic Q6HR PRN Administration Hemorrhoids Prednisone 10 mg 03/29/21 10:00 03/31/21 09:06 Prednisone 10 Mg Tab PO 10 mg DAILY BLANCA Administration Quetiapine Fumarate 300 mg 03/21/21 22:00 03/31/21 09:05 Quetiapine 100 Mg Tab PO 300 mg BID BLANCA Administration Senna/Docusate Sodium 1 tab 03/10/21 22:00 03/31/21 09:05 Sennosides/Docusate Sodium 8.6/50 Mg Tab FEEDTUBE 1 tab BID BLANCA Administration Sodium Chloride 10 ml 03/09/21 10:00 03/31/21 09:06 Sodium Chloride 0.9% 10 Ml Flush Syringe IV 10 ml BID BLANCA Administration Sodium Chloride 10 ml 03/09/21 01:26 Sodium Chloride 0.9% 10 Ml Flush Syringe IV PRN PRN LINE FLUSH Sodium Chloride 10 ml 03/20/21 09:48 Sodium Chloride 0.9% 50 Ml Ivpb IV PRN PRN FLUSH Zinc Sulfate 220 mg 03/10/21 14:00 03/31/21 09:05 Zinc Sulfate 220 Mg Cap PO 220 mg BID BLANCA Administration Nutrition/Malnutrition Assess - Dietary Evaluation Nutrition/Malnutrition Findings: Nutrition Notes Start: 03/09/21 08:49 Freq: Status: Active Protocol: Document 03/27/21 14:48 NHALL (Rec: 03/27/21 15:01 NHALL [id number]) Nutrition Notes Initial or Follow up Reassessment Current Diagnosis Diabetes,Sepsis,Hypertension, Respiratory Failure Other Pertinent Diagnosis COVID-19, Bilateral Pneumonia. Current Diet TF-Glucerna 1.2 at 40 ml/hr Labs/Tests BG 150 Na 136 (Na lab been <145 since 03/24) Pertinent Medications Solumedrol Height 5 ft 11 in Weight 122 kg [place] Body Weight (kg) 78.18 BMI 37.5 Weight Status Obese Subjective/Other Information Pt remains on vent support, but no longer receives propofol. RN informed of intent to increase TF goal rate. Percent of energy/protein needs met: 47% energy 45% pro Burn Absent Trauma Absent #1 Nutrition Diagnosis Inadequate oral intake Diagnosis Progress(for reassessment Continues documentation) Is patient on ventilator? Yes Is Patient Ambulatory and/or Out of Bed No REE-([facility]-confined to bed) 2449.140 Calculation Used for Recommendations 70-80% energy needs Additional Notes Energy needs: 6922-3196 kcal/ day Pro needs 1.3g/kg adjBW: 130g/ day Fluid needs 1ml/kcal Nutrition Intervention Nutrition Support: Increase TF goal rate to 70ml/ hr with 110ml water flush q4h. Kcal 2,016 Protein (gm) 101 Carbohydrates (gm) 192 Fat (gm) 101 Fluid (mL) 1,352 Fiber (gm) 27 Goal #1 TF tolerance Goal #2 TF to meet at least 75% energy and pro needs Follow-Up By: 03/31/21 Additional Comments F/U: TF goal rate increase/ tolerance, vent status, Na lab /water flush <ARABELLA CASTILLO - Last Filed: 04/01/21 07:36> Assessment and Plan Assessment and plan: I saw and evaluated the patient. I agree with the findings and the plan of care as documented in the Nurse Practitioner's~note, with the following corrections and additions. Hospitalist Physical - Constitutional Vitals: Temp Pulse Resp BP Pulse Ox 99.2 F 100 H 21 114/68 94 04/01/21 04:00 04/01/21 06:30 04/01/21 06:30 04/01/21 06:30 04/01/21 06:30 Results - Labs CBC & Chem 7: 03/31/21 13:30 03/30/21 05:36 Labs: Laboratory Last Values WBC 7.4 K/mm3 (4.5-11.0) 03/31/21 13:30 RBC 3.77 M/mm3 (3.65-5.03) 03/31/21 13:30 Hgb 11.3 gm/dl (11.8-15.2) L 03/31/21 13:30 Hct 35.1 % (35.5-45.6) L 03/31/21 13:30 MCV 93 fl (84-94) 03/31/21 13:30 MCH 30 pg (28-32) 03/31/21 13:30 MCHC 32 % (32-34) 03/31/21 13:30 RDW 16.5 % (13.2-15.2) H 03/31/21 13:30 Plt Count 189 K/mm3 (140-440) 03/31/21 13:30 Lymph % (Auto) 7.6 % (13.4-35.0) L 03/31/21 13:30 Phelps % (Auto) 9.5 % (0.0-7.3) H 03/31/21 13:30 Eos % (Auto) 4.1 % (0.0-4.3) 03/31/21 13:30 Baso % (Auto) 0.5 % (0.0-1.8) 03/31/21 13:30 Lymph # (Auto) 0.6 K/mm3 (1.2-5.4) L 03/31/21 13:30 Phelps # (Auto) 0.7 K/mm3 (0.0-0.8) 03/31/21 13:30 Eos # (Auto) 0.3 K/mm3 (0.0-0.4) 03/31/21 13:30 Baso # (Auto) 0.0 K/mm3 (0.0-0.1) 03/31/21 13:30 Add Manual Diff Complete 03/10/21 04:29 Total Counted 100 03/10/21 04:29 Seg Neutrophils % 78.3 % (40.0-70.0) H 03/31/21 13:30 Seg Neuts % (Manual) 94.0 % (40.0-70.0) H 03/10/21 04:29 Band Neutrophils % 0 % 03/10/21 04:29 Lymphocytes % (Manual) 1.0 % (13.4-35.0) L 03/10/21 04:29 Reactive Lymphs % (Man) 0 % 03/10/21 04:29 Monocytes % (Manual) 5.0 % (0.0-7.3) 03/10/21 04:29 Eosinophils % (Manual) 0 % (0.0-4.3) 03/10/21 04:29 Basophils % (Manual) 0 % (0.0-1.8) 03/10/21 04:29 Metamyelocytes % 0 % 03/10/21 04:29 Myelocytes % 0 % 03/10/21 04:29 Promyelocytes % 0 % 03/10/21 04:29 Blast Cells % 0 % 03/10/21 04:29 Nucleated RBC % 3.0 % (0.0-0.9) H 03/10/21 04:29 Seg Neutrophils # 5.8 K/mm3 (1.8-7.7) 03/31/21 13:30 Seg Neutrophils # Man 19.4 K/mm3 (1.8-7.7) H 03/10/21 04:29 Band Neutrophils # 0.0 K/mm3 03/10/21 04:29 Lymphocytes # (Manual) 0.2 K/mm3 (1.2-5.4) L 03/10/21 04:29 Abs React Lymphs (Man) 0.0 K/mm3 03/10/21 04:29 Monocytes # (Manual) 1.0 K/mm3 (0.0-0.8) H 03/10/21 04:29 Eosinophils # (Manual) 0.0 K/mm3 (0.0-0.4) 03/10/21 04:29 Basophils # (Manual) 0.0 K/mm3 (0.0-0.1) 03/10/21 04:29 Metamyelocytes # 0.0 K/mm3 03/10/21 04:29 Myelocytes # 0.0 K/mm3 03/10/21 04:29 Promyelocytes # 0.0 K/mm3 03/10/21 04:29 Blast Cells # 0.0 K/mm3 03/10/21 04:29 WBC Morphology Not Reportable 03/10/21 04:29 Hypersegmented Neuts Not Reportable 03/10/21 04:29 Hyposegmented Neuts Not Reportable 03/10/21 04:29 Hypogranular Neuts Not Reportable 03/10/21 04:29 Smudge Cells Not Reportable 03/10/21 04:29 Toxic Granulation Not Reportable 03/10/21 04:29 Toxic Vacuolation Not Reportable 03/10/21 04:29 Dohle Bodies Not Reportable 03/10/21 04:29 Pelger-Huet Anomaly Not Reportable 03/10/21 04:29 Mely Rods Not Reportable 03/10/21 04:29 Platelet Estimate Consistent w auto 03/10/21 04:29 Clumped Platelets Not Reportable 03/10/21 04:29 Plt Clumps, EDTA Not Reportable 03/10/21 04:29 Large Platelets Not Reportable 03/10/21 04:29 Giant Platelets Not Reportable 03/10/21 04:29 Platelet Satelliting Not Reportable 03/10/21 04:29 Plt Morphology Comment Not Reportable 03/10/21 04:29 RBC Morphology Normal 03/10/21 04:29 Dimorphic RBCs Not Reportable 03/10/21 04:29 Polychromasia Not Reportable 03/10/21 04:29 Hypochromasia Not Reportable 03/10/21 04:29 Poikilocytosis Not Reportable 03/10/21 04:29 Anisocytosis Not Reportable 03/10/21 04:29 Microcytosis Not Reportable 03/10/21 04:29 Macrocytosis Not Reportable 03/10/21 04:29 Spherocytes Not Reportable 03/10/21 04:29 Pappenheimer Bodies Not Reportable 03/10/21 04:29 Sickle Cells Not Reportable 03/10/21 04:29 Target Cells Not Reportable 03/10/21 04:29 Tear Drop Cells Not Reportable 03/10/21 04:29 Ovalocytes Not Reportable 03/10/21 04:29 Helmet Cells Not Reportable 03/10/21 04:29 [place] Bodies Not Reportable 03/10/21 04:29 [place] Rings Not Reportable 03/10/21 04:29 [place] Cells Not Reportable 03/10/21 04:29 Bite Cells Not Reportable 03/10/21 04:29 Crenated Cell Not Reportable 03/10/21 04:29 Elliptocytes Not Reportable 03/10/21 04:29 Acanthocytes (Spur) Not Reportable 03/10/21 04:29 Rouleaux Not Reportable 03/10/21 04:29 Hemoglobin C Crystals Not Reportable 03/10/21 04:29 Schistocytes Not Reportable 03/10/21 04:29 Malaria parasites Not Reportable 03/10/21 04:29 Shaheen Bodies Not Reportable 03/10/21 04:29 Hem Pathologist Commnt No 03/10/21 04:29 PT 13.0 Sec. (12.2-14.9) 03/29/21 04:50 INR 0.88 (0.87-1.13) 03/29/21 04:50 APTT 28.0 Sec. (24.2-36.6) 03/08/21 20:24 D-Dimer 1359.12 ng/mlDDU (0-234) H 03/17/21 04:40 ABG pH 7.397 pH Units (7.350-7.450) 03/31/21 12:50 POC ABG pCO2 71.9 mmHg (32.0-48.0) H 03/12/21 21:54 ABG pCO2 58.1 mm Hg 03/31/21 12:50 POC ABG pO2 53.6 mmHg (83-108) L 03/12/21 21:54 ABG pO2 99.4 mm Hg (80.0-90.0) H 03/31/21 12:50 POC ABG HCO3 30.0 03/12/21 21:54 ABG HCO3 34.9 mmol/L (20.0-26.0) H 03/31/21 12:50 ABG O2 Saturation 97.3 % (95.0-99.0) 03/31/21 12:50 ABG O2 Content 15.9 (0.0-44) 03/31/21 12:50 POC ABG Base Excess 0.5 03/12/21 21:54 ABG Base Excess 8.4 mmol/L (-2.0-3.0) H 03/31/21 12:50 ABG Hemoglobin 11.8 gm/dl (14.0-18.0) L 03/31/21 12:50 ABG Oxyhemoglobin 84.8 (94-98) L 03/12/21 21:54 ABG Carboxyhemoglobin 1.6 % (0.0-5.0) 03/31/21 12:50 ABG Methemoglobin 0.7 % (0.0-1.5) 03/31/21 12:50 ABG Sodium 134.2 mmol/L (136.0-145.0) L 03/12/21 21:54 ABG Potassium 4.9 mmol/L (3.40-4.50) H 03/12/21 21:54 ABG Chloride 99.0 mmol/L (98-107) 03/12/21 21:54 ABG Glucose 306 mg/dL (65-95) H 03/12/21 21:54 Oxyhemoglobin 95.1 % (95.0-99.0) 03/31/21 12:50 Carboxyhemoglobin 0.6 (0.5-1.5) 03/12/21 21:54 FiO2 40 % 03/31/21 12:50 FiO2 % 50.0 03/12/21 21:54 Sodium 140 mmol/L (137-145) 03/30/21 05:36 Potassium 4.5 mmol/L (3.6-5.0) 03/30/21 05:36 Chloride 101.3 mmol/L (98-107) 03/30/21 05:36 Carbon Dioxide 29 mmol/L (22-30) 03/30/21 05:36 Anion Gap 14 mmol/L 03/30/21 05:36 BUN 11 mg/dL (9-20) 03/30/21 05:36 Creatinine 0.5 mg/dL (0.8-1.3) L 03/30/21 05:36 Estimated GFR > 60 ml/min 03/30/21 05:36 BUN/Creatinine Ratio 22 % 03/30/21 05:36 Glucose 127 mg/dL (75-100) H 03/30/21 05:36 POC Glucose 128 mg/dL (70-105) H 04/01/21 05:37 Lactic Acid 1.90 mmol/L (0.7-2.0) 03/08/21 23:51 Calcium 9.0 mg/dL (8.4-10.2) 03/30/21 05:36 Phosphorus TNR 03/28/21 07:14 Magnesium TNR 03/28/21 07:14 Ferritin 976.4 ng/mL (30.0-300.0) H 03/15/21 04:00 Total Bilirubin 0.20 mg/dL (0.1-1.2) 03/12/21 08:03 AST 10 units/L (5-40) 03/12/21 08:03 ALT 16 units/L (7-56) 03/12/21 08:03 Alkaline Phosphatase 77 units/L (35-129) 03/12/21 08:03 Lactate Dehydrogenase 630 units/L (91-180) H 03/15/21 06:06 C-Reactive Protein 0.40 mg/dL (0.00-1.30) 03/17/21 04:40 NT-Pro-B Natriuret Pep 1053 pg/mL (0-900) H 03/08/21 20:24 Total Protein 6.0 g/dL (6.3-8.2) L 03/12/21 08:03 Albumin 2.9 g/dL (3.9-5) L 03/12/21 08:03 Albumin/Globulin Ratio 0.9 % 03/12/21 08:03 Triglycerides 305 mg/dL (2-149) H 03/22/21 07:26 Procalcitonin 0.05 ng/mL (<0.15) 03/17/21 04:40 Arterial Blood Glucose 306 mg/dL (65-95) H 03/12/21 21:54 Arterial Blood Ionized Calcium 5.0 mg/dL (4.6-5.3) 03/12/21 21:54 Urine Color Yellow (Yellow) 03/09/21 04:10 Urine Turbidity Slightly-cloudy (Clear) 03/09/21 04:10 Urine pH 5.0 (5.0-7.0) 03/09/21 04:10 Ur Specific [place] 1.041 (1.003-1.030) H 03/09/21 04:10 Urine Protein 100 mg/dl mg/dL (Negative) 03/09/21 04:10 Urine Glucose (UA) Neg mg/dL (Negative) 03/09/21 04:10 Urine Ketones Neg mg/dL (Negative) 03/09/21 04:10 Urine Blood Mod (Negative) 03/09/21 04:10 Urine Nitrite Neg (Negative) 03/09/21 04:10 Urine Bilirubin Neg (Negative) 03/09/21 04:10 Urine Urobilinogen 2.0 mg/dL (<2.0) 03/09/21 04:10 Ur Leukocyte Esterase Neg (Negative) 03/09/21 04:10 Urine WBC (Auto) 4.0 /HPF (0.0-6.0) 03/09/21 04:10 Urine RBC (Auto) 1.0 /HPF (0.0-6.0) 03/09/21 04:10 Urine Bacteria (Auto) 1+ /HPF (Negative) 03/09/21 04:10 Urine Mucus Few /HPF 03/09/21 04:10 Coronavirus (PCR) Positive (Negative) A 03/09/21 08:00 Miscellaneous Test Flexitest 1 03/16/21 13:14 Microbiology: Microbiology 03/31/21 13:30 Peripheral/Venous Blood Culture - Preliminary Culture in Progress 03/31/21 14:00 Peripheral/Venous Blood Culture - Preliminary Culture in Progress Good/IV: Voiding Method Indwelling Catheter Active Medications - Current Medications Current Medications: Generic Name Dose Route Start Last Admin Trade Name Freq PRN Reason Stop Dose Admin Acetaminophen 650 mg 03/09/21 01:26 04/01/21 00:53 Acetaminophen 325 Mg Tab PO 650 mg Q4H PRN Administration Pain MILD(1-3)/Fever >100.5/RAYO Albuterol 2.5 mg 03/09/21 01:26 03/18/21 21:06 Albuterol 2.5 Mg/3 Ml Nebu IH 2.5 mg Q4HRT PRN Administration Shortness Of Breath Amlodipine Besylate 5 mg 03/30/21 10:00 03/31/21 09:05 Amlodipine 5 Mg Tab PO 5 mg QDAY BLANCA Administration Arformoterol Tartrate 15 mcg 03/11/21 20:00 03/31/21 19:41 Arformoterol 15 Mcg/2 Ml Nebu IH 15 mcg Q12HRT BLANCA Administration Ascorbic Acid 500 mg 03/10/21 14:00 03/31/21 21:32 Ascorbic Acid 500 Mg Tab PO 500 mg BID BLANCA Administration Bisacodyl 10 mg 03/26/21 13:43 03/26/21 13:51 Bisacodyl 10 Mg Rect Supp GA 10 mg QDAY PRN Administration Constipation Budesonide 0.25 mg 03/11/21 20:00 03/31/21 19:41 Budesonide 0.25 Mg/2 Ml Nebu IH 0.25 mg Q12HRT BLANCA Administration Chlordiazepoxide HCl 75 mg 03/22/21 18:00 04/01/21 06:22 Chlordiazepoxide 25 Mg Cap PO 75 mg Q6HR BLANCA Administration Dextrose 0 ml 03/20/21 10:52 Dextrose 10% *Hypoglycemia IV PRN PRN Hypoglycemia Doxazosin Mesylate 1 mg 03/23/21 14:00 03/31/21 09:06 Doxazosin 1 Mg Tab PO 1 mg QDAY BLANCA Administration Enoxaparin Sodium 30 mg 04/01/21 10:00 Enoxaparin 30 Mg/0.3 Ml Inj SUB-Q Q12HR [facility] Famotidine 20 mg 03/12/21 22:00 03/31/21 21:32 Famotidine 20 Mg Tab FEEDTUBE 20 mg BID BLANCA Administration Fentanyl 1 applic 03/31/21 15:00 03/31/21 16:12 Fentanyl 75 Mcg/Hr Patch 72hr TD 1 applic Q3D BLANCA Administration Fentanyl 50 mcg 03/31/21 14:41 03/31/21 21:33 Fentanyl 100 Mcg/2 Ml Inj IV 50 mcg Q2H PRN Administration ANALGESIA Furosemide 20 mg 03/30/21 18:00 03/31/21 10:54 Furosemide 20 Mg/2 Ml Inj IV 04/04/21 17:59 20 mg QDAY BLANCA Administration Hydralazine HCl 50 mg 03/23/21 14:26 04/01/21 06:21 Hydralazine 25 Mg Tab PO 50 mg Q8HR BLANCA Administration Hydrophilic Ointment 1 applic 03/10/21 15:39 Lip Therapy Vaseline TP Q2HR PRN Dry Lips Fentanyl Citrate 2,000 mcg in 100 mls @ 5.897 mls/hr 03/10/21 17:00 04/01/21 06:50 Fentanyl Drip Premix IV Infused TITR BLANCA Titration Protocol 1 MCG/KG/HR Propofol 1,000 mg in 100 mls @ 3.507 mls/hr 03/11/21 17:00 03/22/21 18:02 Diprivan 10 Mg/Ml IV 0 mcg/kg/min TITR BLANCA 0 mls/hr Titration Protocol 5 MCG/KG/MIN Cefepime HCl 2 gm in 100 mls @ 200 mls/hr 03/31/21 15:00 04/01/21 06:24 Cefepime/Ns 2 Gm/100 Ml IV 200 mls/hr Q8H BLANCA Administration Protocol Insulin Glargine 15 units 03/29/21 22:00 03/31/21 21:33 Insulin Glargine 100 Units/Ml SUB-Q 15 units QHS BLANCA Administration Insulin Human Lispro 0 unit 03/11/21 18:00 03/31/21 17:35 Insulin Lispro 100 Unit/Ml SUB-Q 3 unit Q6HR BLANCA Administration Protocol Labetalol HCl 10 mg 03/12/21 21:13 03/21/21 16:54 Labetalol 20 Mg/4 Ml Inj IV 10 mg Q6H PRN Administration Blood Pressure Metoprolol Tartrate 12.5 mg 03/21/21 22:00 03/31/21 21:31 Metoprolol Tartrate 25 Mg Tab PO 12.5 mg BID BLANCA Administration Midazolam HCl 2 mg 03/15/21 08:49 03/31/21 21:33 Midazolam 2 Mg/2 Ml Inj IV 2 mg Q2H PRN Administration VENT SYNCHRONY Multi-Ingred Cream/Lotion/Oil/Oint 1 applic 03/10/21 15:39 Mineral Oil/Petrolatum, White Ophth Oint 3.5 Gm OU Q4HR PRN Dry Eye(s) Ondansetron HCl 4 mg 03/09/21 01:26 Ondansetron 4 Mg/2 Ml Inj IV Q8H PRN Nausea And Vomiting Oxycodone HCl 5 mg 03/30/21 12:14 03/31/21 07:45 Oxycodone 5 Mg Tab PO 5 mg Q6H PRN Administration Pain, Moderate (4-6) Phenyleph/Shark Oil/Min Oil/Petrol 1 applic 03/22/21 17:35 03/31/21 18:20 Pe/Mo/Pet,Wh 10 Applic/28 Gm Tube GA 1 applic Q6HR PRN Administration Hemorrhoids Prednisone 10 mg 03/29/21 10:00 03/31/21 09:06 Prednisone 10 Mg Tab PO 10 mg DAILY BLANCA Administration Quetiapine Fumarate 300 mg 03/21/21 22:00 03/31/21 21:31 Quetiapine 100 Mg Tab PO 300 mg BID BLANCA Administration Senna/Docusate Sodium 1 tab 03/10/21 22:00 03/31/21 21:31 Sennosides/Docusate Sodium 8.6/50 Mg Tab FEEDTUBE 1 tab BID BLANCA Administration Sodium Chloride 10 ml 03/09/21 10:00 03/31/21 09:06 Sodium Chloride 0.9% 10 Ml Flush Syringe IV 10 ml BID BLANCA Administration Sodium Chloride 10 ml 03/09/21 01:26 Sodium Chloride 0.9% 10 Ml Flush Syringe IV PRN PRN LINE FLUSH Sodium Chloride 10 ml 03/20/21 09:48 Sodium Chloride 0.9% 50 Ml Ivpb IV PRN PRN FLUSH Zinc Sulfate 220 mg 03/10/21 14:00 03/31/21 21:34 Zinc Sulfate 220 Mg Cap PO 220 mg BID BLANCA Administration Nutrition/Malnutrition Assess - Dietary Evaluation Nutrition/Malnutrition Findings: Nutrition Notes Start: 03/09/21 08:49 Freq: Status: Active Protocol: Document 03/31/21 14:51 [facility] (Rec: 03/31/21 14:52 [facility] [id number]) Nutrition Notes Initial or Follow up Reassessment Current Diagnosis Diabetes,Sepsis,Hypertension, Respiratory Failure Other Pertinent Diagnosis COVID-19, Bilateral Pneumonia. Current Diet TF-Glucerna 1.2 at 70 ml/hr Labs/Tests Na 140 yesterday Pertinent Medications Lasix, Reglan, Prednisone Height 5 ft 11 in Weight 122 kg [place] Body Weight (kg) 78.18 BMI 37.5 Weight Status Obese Subjective/Other Information Pt remains on vent support. Trach and PEG placed on 2/2. Per RN, pt tolerating TF at goal rate. Percent of energy/protein needs met: 82% energy 78% pro Burn Absent Trauma Absent #1 Nutrition Diagnosis Inadequate oral intake Diagnosis Progress(for reassessment Continues documentation) Is patient on ventilator? Yes Is Patient Ambulatory and/or Out of Bed No REE-([place]. or-confined to bed) 3239.140 Calculation Used for Recommendations 70-80% energy needs Additional Notes Energy needs: 4344-4601 kcal/ day Pro needs 1.3g/kg adjBW: 130g/ day Fluid needs 1ml/kcal Nutrition Intervention Nutrition Support: Continue Glucerna 1.2 at 70ml/ hr with 110ml water flush q4h. Kcal 2,016 Protein (gm) 101 Carbohydrates (gm) 192 Fat (gm) 101 Fluid (mL) 1,352 Fiber (gm) 27 Goal #1 TF tolerance Goal #2 TF to meet at least 75% energy and pro needs Follow-Up By: 04/07/21 Additional Comments F/U: stable TF, vent status, wt
[2021-03-31 13:19] LABS: ABG Base Excess 8.4 mmol/L (-2.0-3.0); ABG HCO3 34.9 mmol/L (20.0-26.0); ABG Methemoglobin 0.7 % (0.0-1.5); ABG Oxygen Saturation 97.3 % (95.0-99.0); ABG PCO2 58.1 mm Hg; ABG PH 7.397 pH Units (7.350-7.450); ABG PO2 99.4 mm Hg (80.0-90.0)
--- NOTE | 2021-03-31 14:03 | Progress Note ---
Assessment and Plan Acute hypoxemic respiratory failure, on continuous noninvasive ventilation COVID-19 infection Bilateral pneumonia History of diabetes Obesity Hypertension Leukocytosis Possible venous thromboembolic phenomena with significantly elevated D-dimers DM II Elevated serum inflammatory markers to include CRP levels, ferritin and LDH - placed 75 myles's/hr Fentanyl patch; wean off IV Fentanyl and use prn pushes also - get Procalcitonin level to aid clinical decision making - started on Cefepime- de-escalate per ID recommendations - armstrong cultured - complete Lasix dosing - LTAC evaluation ongoing - continue care as below otherwise; - continue Daily SAT and SBT assessment as tolerated - continue to wean supplemental oxygen for target O2 sat's > 90% acutely - VAP bundle addressed - continue lung protective strategies - continue bronchodilators with pulmonary hygiene per RT - wean per pulmonary driven protocols otherwise - continue accuchecks with glycemic control per SSI (While critically ill target blood glucose of 140-180 mg/dL; avoid hypoglycemia) - sedation prn for target RASS 0 to -1 - avoid nephrotoxins, renally dose all medications - avoid benzodiazepine's, reduce the possibility of delirium - AB's per ID rec's - prn analgesia per pain score - Maintenance of sleep-wake cycle, avoid delirium - G.I. & VTE prophylaxis - PT/OT/ROM exercises - mobility protocols for pressure ulcer prophylaxis - Monitor hemodynamics closely - continue other care per attending / other consultants - discharge planning ongoing concurrently COVID SPECIFIC INTERVENTIONS - Remdesivir as per ID/Pulmonary developed protocols (received) - continue systemic steroids for severe COVID-19 infection empirically (Decadron) - follow repeat COVID tests results - zinc and vitamin C supplementation - Monitor inflammatory markers per facility protocol - ferritin, Ddimer, CRP - therapeutic anticoagulation per system Protocol based on d-dimer and clinical considerations (treatment dose) - contact and airborne isolation discontinued .... Re-evaluate in am & prn CONDITION: CRITICAL PROGNOSIS: GUARDED CODE STATUS: FULL CODE The high probability of a clinically significant, sudden or life-threatening deterioration of the [respiratory, cardiovascular & hematologic] system(s) required my full and direct attention, intervention and personal management. The aggregate critical care time was [34] minutes without overlap. Time includes spent on; [x] Data Review and interpretation [x] Patient assessment and monitoring of vital signs [x] Documentation [x] Medication orders and management Subjective Date of service: 03/31/21 Principal diagnosis: COVID-19 infection; DM II; Bilateral pneumonia; Obesity; HTN Interval history: Patient is seen today for: Acute hypoxemic respiratory failure; COVID-19 infection; DM II; Bilateral pneumonia; Obesity; HTN Seen and examined at bedside; 24hour events reviewed; nursing and respiratory care staff consulted; no adverse overnight events reported to me; resting in bed; remains on MVS; placed on SBT and tolerating well so far; still with intermittent agitation when anxiolytics wear off; febrile today Objective Vital Signs - 12hr 03/31/21 03/31/21 03/31/21 02:16 02:30 02:46 Temperature Pulse Rate 106 H 107 H 105 H Pulse Rate [ Bilateral Throughout] Pulse Rate [ From Monitor] Respiratory 26 H 24 25 H Rate Respiratory Rate [Bilateral Throughout] Blood Pressure 110/59 106/58 106/58 O2 Sat by Pulse 95 95 95 Oximetry O2 Sat by Pulse Oximetry [ Assessment] 03/31/21 03/31/21 03/31/21 03:00 03:16 03:30 Temperature Pulse Rate 105 H 106 H 107 H Pulse Rate [ Bilateral Throughout] Pulse Rate [ From Monitor] Respiratory 23 25 H 26 H Rate Respiratory Rate [Bilateral Throughout] Blood Pressure 107/61 107/61 109/57 O2 Sat by Pulse 95 95 95 Oximetry O2 Sat by Pulse Oximetry [ Assessment] 03/31/21 03/31/21 03/31/21 03:46 04:00 04:16 Temperature 99.2 F Pulse Rate 107 H 115 H 120 H Pulse Rate [ Bilateral Throughout] Pulse Rate [ 107 H From Monitor] Respiratory 25 H 34 H 37 H Rate Respiratory Rate [Bilateral Throughout] Blood Pressure 109/57 133/73 133/73 O2 Sat by Pulse 96 96 96 Oximetry O2 Sat by Pulse Oximetry [ Assessment] 03/31/21 03/31/21 03/31/21 04:21 04:30 04:35 Temperature Pulse Rate 116 H 117 H Pulse Rate [ Bilateral Throughout] Pulse Rate [ From Monitor] Respiratory 20 Rate Respiratory Rate [Bilateral Throughout] Blood Pressure 142/80 133/73 O2 Sat by Pulse 96 100 Oximetry O2 Sat by Pulse 96 Oximetry [ Assessment] 03/31/21 03/31/21 03/31/21 04:45 05:00 05:15 Temperature Pulse Rate 114 H 113 H 112 H Pulse Rate [ Bilateral Throughout] Pulse Rate [ From Monitor] Respiratory 31 H 30 H 30 H Rate Respiratory Rate [Bilateral Throughout] Blood Pressure 142/80 110/51 110/51 O2 Sat by Pulse 94 94 94 Oximetry O2 Sat by Pulse Oximetry [ Assessment] 03/31/21 03/31/21 03/31/21 05:30 05:45 05:49 Temperature Pulse Rate 112 H 113 H 114 H Pulse Rate [ Bilateral Throughout] Pulse Rate [ From Monitor] Respiratory 29 H 30 H Rate Respiratory Rate [Bilateral Throughout] Blood Pressure 121/68 121/68 121/68 O2 Sat by Pulse 95 95 Oximetry O2 Sat by Pulse Oximetry [ Assessment] 03/31/21 03/31/21 03/31/21 06:00 06:15 06:30 Temperature Pulse Rate 113 H 113 H 115 H Pulse Rate [ Bilateral Throughout] Pulse Rate [ From Monitor] Respiratory 29 H 31 H 31 H Rate Respiratory Rate [Bilateral Throughout] Blood Pressure 122/62 122/62 125/58 O2 Sat by Pulse 95 95 96 Oximetry O2 Sat by Pulse Oximetry [ Assessment] 03/31/21 03/31/21 03/31/21 06:45 07:00 07:01 Temperature Pulse Rate 121 H 135 H 126 H Pulse Rate [ Bilateral Throughout] Pulse Rate [ From Monitor] Respiratory 37 H 41 H Rate Respiratory Rate [Bilateral Throughout] Blood Pressure 125/58 143/82 O2 Sat by Pulse 96 95 Oximetry O2 Sat by Pulse Oximetry [ Assessment] 03/31/21 03/31/21 03/31/21 07:15 07:22 07:30 Temperature 100.9 F H Pulse Rate 128 H 125 H Pulse Rate [ Bilateral Throughout] Pulse Rate [ From Monitor] Respiratory 44 H 41 H Rate Respiratory Rate [Bilateral Throughout] Blood Pressure 143/82 132/64 O2 Sat by Pulse 92 91 Oximetry O2 Sat by Pulse Oximetry [ Assessment] 03/31/21 03/31/21 03/31/21 07:45 08:00 08:10 Temperature 101 F H Pulse Rate 124 H 118 H 124 H Pulse Rate [ Bilateral Throughout] Pulse Rate [ 135 H From Monitor] Respiratory 40 H 17 Rate Respiratory Rate [Bilateral Throughout] Blood Pressure 132/64 116/58 181/96 O2 Sat by Pulse 92 93 93 Oximetry O2 Sat by Pulse Oximetry [ Assessment] 03/31/21 03/31/21 03/31/21 08:15 08:30 08:45 Temperature Pulse Rate 115 H 122 H 127 H Pulse Rate [ Bilateral Throughout] Pulse Rate [ From Monitor] Respiratory 26 H 46 H 42 H Rate Respiratory Rate [Bilateral Throughout] Blood Pressure 116/58 181/96 181/96 O2 Sat by Pulse 94 92 98 Oximetry O2 Sat by Pulse Oximetry [ Assessment] 03/31/21 03/31/21 03/31/21 09:00 09:15 09:21 Temperature Pulse Rate 126 H 120 H Pulse Rate [ 118 H Bilateral Throughout] Pulse Rate [ From Monitor] Respiratory 54 H 32 H Rate Respiratory 26 H Rate [Bilateral Throughout] Blood Pressure 150/82 150/82 O2 Sat by Pulse 94 94 Oximetry O2 Sat by Pulse Oximetry [ Assessment] 03/31/21 03/31/21 03/31/21 09:30 09:45 10:00 Temperature Pulse Rate 120 H 116 H 118 H Pulse Rate [ Bilateral Throughout] Pulse Rate [ From Monitor] Respiratory 32 H 30 H 25 H Rate Respiratory Rate [Bilateral Throughout] Blood Pressure 144/79 144/79 131/79 O2 Sat by Pulse 94 94 99 Oximetry O2 Sat by Pulse Oximetry [ Assessment] 03/31/21 03/31/21 03/31/21 10:15 10:30 10:45 Temperature Pulse Rate 119 H 119 H 120 H Pulse Rate [ Bilateral Throughout] Pulse Rate [ From Monitor] Respiratory 26 H 28 H 22 Rate Respiratory Rate [Bilateral Throughout] Blood Pressure 131/79 135/81 135/81 O2 Sat by Pulse 99 99 99 Oximetry O2 Sat by Pulse Oximetry [ Assessment] 03/31/21 03/31/21 03/31/21 11:00 11:15 11:30 Temperature Pulse Rate 120 H 112 H 105 H Pulse Rate [ Bilateral Throughout] Pulse Rate [ From Monitor] Respiratory 29 H 28 H 24 Rate Respiratory Rate [Bilateral Throughout] Blood Pressure 144/89 144/89 120/75 O2 Sat by Pulse 95 95 95 Oximetry O2 Sat by Pulse Oximetry [ Assessment] 03/31/21 03/31/21 03/31/21 11:35 11:45 12:00 Temperature 100.0 F H Pulse Rate 103 H 104 H Pulse Rate [ Bilateral Throughout] Pulse Rate [ From Monitor] Respiratory 24 25 H Rate Respiratory Rate [Bilateral Throughout] Blood Pressure 120/75 118/70 O2 Sat by Pulse 96 95 Oximetry O2 Sat by Pulse Oximetry [ Assessment] 03/31/21 03/31/2122 12:08 12:15 12:30 Temperature Pulse Rate 103 H 104 H 103 H Pulse Rate [ Bilateral Throughout] Pulse Rate [ From Monitor] Respiratory 23 21 Rate Respiratory Rate [Bilateral Throughout] Blood Pressure 120/75 118/70 124/63 O2 Sat by Pulse 96 96 97 Oximetry O2 Sat by Pulse Oximetry [ Assessment] 03/31/21 03/31/21 12:45 13:00 Temperature Pulse Rate 102 H 101 H Pulse Rate [ Bilateral Throughout] Pulse Rate [ From Monitor] Respiratory 21 18 Rate Respiratory Rate [Bilateral Throughout] Blood Pressure 124/63 113/73 O2 Sat by Pulse 97 97 Oximetry O2 Sat by Pulse Oximetry [ Assessment] Constitutional: no acute distress, agitated, other (elderly obese male with mildly increased respiratory effort at rest) Eyes: non-icteric ENT: oropharynx moist, other (+ midline tracheostomy) Neck: supple, no lymphadenopathy, no JVD, other (large circumference) Effort: mildly labored Ascultation: Bilateral: diminished breath sounds, rhonchi Percussion: Bilateral: not dull Cardiovascular: regular rate and rhythm, other (tachycardia, S1,S2) Gastrointestinal: normoactive bowel sounds, soft, non-tender, non-distended (protuberant) Integumentary: normal Extremities: no cyanosis, pulses normal, no ischemia or petechiae, edema, other Neurologic: non-focal exam (grossly), pupils equal and round, other (sedated) Psychiatric: other (unable to assess re: AMS) CBC and BMP: 03/31/21 13:30 03/30/21 05:36 ABG, PT/INR, D-dimer: ABG ABG pH 7.397 pH Units (7.350-7.450) 03/31/21 12:50 POC ABG pCO2 71.9 mmHg (32.0-48.0) H 03/12/21 21:54 ABG pCO2 58.1 mm Hg 03/31/21 12:50 POC ABG pO2 53.6 mmHg (83-108) L 03/12/21 21:54 ABG pO2 99.4 mm Hg (80.0-90.0) H 03/31/21 12:50 POC ABG HCO3 30.0 03/12/21 21:54 ABG O2 Saturation 97.3 % (95.0-99.0) 03/31/21 12:50 PT/INR, D-dimer PT 13.0 Sec. (12.2-14.9) 03/29/21 04:50 INR 0.88 (0.87-1.13) 03/29/21 04:50 D-Dimer 1359.12 ng/mlDDU (0-234) H 03/17/21 04:40 Abnormal lab findings: Abnormal Labs 03/08/21 03/08/21 03/08/21 20:24 20:24 20:24 WBC 22.6 H RBC 5.44 H Hgb 15.7 H Hct 49.2 H MCV MCHC RDW Plt Count Lymph % (Auto) [place] % (Auto) [place] # (Auto) Seg Neutrophils % Seg Neuts % (Manual) 83.0 H Lymphocytes % (Manual) 9.0 L Monocytes % (Manual) 8.0 H Nucleated RBC % Seg Neutrophils # Seg Neutrophils # Man 18.8 H Lymphocytes # (Manual) Monocytes # (Manual) 1.8 H PT 16.1 H INR 1.17 H D-Dimer > 21548 H ABG pH POC ABG pCO2 POC ABG pO2 ABG pO2 ABG HCO3 ABG O2 Saturation ABG Base Excess ABG Hemoglobin ABG Oxyhemoglobin ABG Sodium ABG Potassium ABG Glucose Oxyhemoglobin Sodium 136 L Potassium Chloride 93.9 L Carbon Dioxide BUN 29 H Creatinine Glucose 208 H POC Glucose Lactic Acid Phosphorus Magnesium Ferritin Lactate Dehydrogenase 624 H C-Reactive Protein 18.00 H NT-Pro-B Natriuret Pep 1053 H Total Protein Albumin Triglycerides Arterial Blood Glucose Ur Specific [place] Coronavirus (PCR) 03/08/21 03/08/21 03/09/21 20:24 20:24 04:10 WBC RBC Hgb Hct MCV MCHC RDW Plt Count Lymph % (Auto) [place] % (Auto) [place] # (Auto) Seg Neutrophils % Seg Neuts % (Manual) Lymphocytes % (Manual) Monocytes % (Manual) Nucleated RBC % Seg Neutrophils # Seg Neutrophils # Man Lymphocytes # (Manual) Monocytes # (Manual) PT INR D-Dimer ABG pH POC ABG pCO2 POC ABG pO2 ABG pO2 ABG HCO3 ABG O2 Saturation ABG Base Excess ABG Hemoglobin ABG Oxyhemoglobin ABG Sodium ABG Potassium ABG Glucose Oxyhemoglobin Sodium Potassium Chloride Carbon Dioxide BUN Creatinine Glucose POC Glucose Lactic Acid 2.10 H* Phosphorus Magnesium Ferritin 877.5 H Lactate Dehydrogenase C-Reactive Protein NT-Pro-B Natriuret Pep Total Protein Albumin Triglycerides Arterial Blood Glucose Ur Specific [place] 1.041 H Coronavirus (PCR) 03/09/21 03/09/21 03/09/21 07:46 08:00 13:01 WBC RBC Hgb Hct MCV MCHC RDW Plt Count Lymph % (Auto) [place] % (Auto) [place] # (Auto) Seg Neutrophils % Seg Neuts % (Manual) Lymphocytes % (Manual) Monocytes % (Manual) Nucleated RBC % Seg Neutrophils # Seg Neutrophils # Man Lymphocytes # (Manual) Monocytes # (Manual) PT INR D-Dimer ABG pH POC ABG pCO2 POC ABG pO2 ABG pO2 ABG HCO3 ABG O2 Saturation ABG Base Excess ABG Hemoglobin ABG Oxyhemoglobin ABG Sodium ABG Potassium ABG Glucose Oxyhemoglobin Sodium Potassium Chloride Carbon Dioxide BUN Creatinine Glucose POC Glucose 191 H 182 H Lactic Acid Phosphorus Magnesium Ferritin Lactate Dehydrogenase C-Reactive Protein NT-Pro-B Natriuret Pep Total Protein Albumin Triglycerides Arterial Blood Glucose Ur Specific [place] Coronavirus (PCR) Positive A 03/09/21 03/09/21 03/09/21 15:19 17:48 18:10 WBC RBC Hgb Hct MCV MCHC RDW Plt Count Lymph % (Auto) [place] % (Auto) [place] # (Auto) Seg Neutrophils % Seg Neuts % (Manual) Lymphocytes % (Manual) Monocytes % (Manual) Nucleated RBC % Seg Neutrophils # Seg Neutrophils # Man Lymphocytes # (Manual) Monocytes # (Manual) PT INR D-Dimer ABG pH POC ABG pCO2 POC ABG pO2 ABG pO2 47.3 L ABG HCO3 26.3 H ABG O2 Saturation 83.7 L ABG Base Excess ABG Hemoglobin ABG Oxyhemoglobin ABG Sodium ABG Potassium ABG Glucose Oxyhemoglobin 82.1 L Sodium Potassium Chloride Carbon Dioxide BUN 29 H Creatinine Glucose 214 H POC Glucose 194 H Lactic Acid Phosphorus Magnesium Ferritin Lactate Dehydrogenase C-Reactive Protein NT-Pro-B Natriuret Pep Total Protein Albumin 3.4 L Triglycerides Arterial Blood Glucose Ur Specific [place] Coronavirus (PCR) 03/09/21 03/10/21 03/10/21 20:40 04:29 04:29 WBC 20.6 H RBC 5.07 H Hgb Hct 46.2 H MCV MCHC RDW Plt Count Lymph % (Auto) [place] % (Auto) [place] # (Auto) Seg Neutrophils % Seg Neuts % (Manual) 94.0 H Lymphocytes % (Manual) 1.0 L Monocytes % (Manual) Nucleated RBC % 3.0 H Seg Neutrophils # Seg Neutrophils # Man 19.4 H Lymphocytes # (Manual) 0.2 L Monocytes # (Manual) 1.0 H PT INR D-Dimer ABG pH POC ABG pCO2 POC ABG pO2 ABG pO2 ABG HCO3 ABG O2 Saturation ABG Base Excess ABG Hemoglobin ABG Oxyhemoglobin ABG Sodium ABG Potassium ABG Glucose Oxyhemoglobin Sodium Potassium Chloride Carbon Dioxide BUN 29 H Creatinine Glucose 188 H POC Glucose 176 H Lactic Acid Phosphorus Magnesium Ferritin Lactate Dehydrogenase C-Reactive Protein NT-Pro-B Natriuret Pep Total Protein Albumin 3.3 L Triglycerides Arterial Blood Glucose Ur Specific [place] Coronavirus (PCR) 03/10/21 03/10/21 03/10/21 05:22 10:27 15:25 WBC RBC Hgb Hct MCV MCHC RDW Plt Count Lymph % (Auto) [place] % (Auto) [place] # (Auto) Seg Neutrophils % Seg Neuts % (Manual) Lymphocytes % (Manual) Monocytes % (Manual) Nucleated RBC % Seg Neutrophils # Seg Neutrophils # Man Lymphocytes # (Manual) Monocytes # (Manual) PT INR D-Dimer ABG pH 7.488 H 7.488 H POC ABG pCO2 POC ABG pO2 ABG pO2 47.7 L 50.5 L ABG HCO3 ABG O2 Saturation 86.2 L 87.9 L ABG Base Excess ABG Hemoglobin ABG Oxyhemoglobin ABG Sodium ABG Potassium ABG Glucose Oxyhemoglobin 84.6 L 86.2 L Sodium Potassium Chloride Carbon Dioxide BUN Creatinine Glucose POC Glucose 155 H Lactic Acid Phosphorus Magnesium Ferritin Lactate Dehydrogenase C-Reactive Protein NT-Pro-B Natriuret Pep Total Protein Albumin Triglycerides Arterial Blood Glucose Ur Specific [place] Coronavirus (PCR) 03/10/21 03/10/21 03/11/21 18:10 18:55 00:07 WBC RBC Hgb Hct MCV MCHC RDW Plt Count Lymph % (Auto) [place] % (Auto) [place] # (Auto) Seg Neutrophils % Seg Neuts % (Manual) Lymphocytes % (Manual) Monocytes % (Manual) Nucleated RBC % Seg Neutrophils # Seg Neutrophils # Man Lymphocytes # (Manual) Monocytes # (Manual) PT INR D-Dimer ABG pH 7.343 L POC ABG pCO2 POC ABG pO2 ABG pO2 60.4 L ABG HCO3 27.9 H ABG O2 Saturation 88.7 L ABG Base Excess ABG Hemoglobin ABG Oxyhemoglobin ABG Sodium ABG Potassium ABG Glucose Oxyhemoglobin 86.9 L Sodium Potassium Chloride Carbon Dioxide BUN Creatinine Glucose POC Glucose 187 H 139 H Lactic Acid Phosphorus Magnesium Ferritin Lactate Dehydrogenase C-Reactive Protein NT-Pro-B Natriuret Pep Total Protein Albumin Triglycerides Arterial Blood Glucose Ur Specific [place] Coronavirus (PCR) 03/11/21 03/11/21 03/11/21 02:09 04:28 08:06 WBC RBC Hgb Hct MCV MCHC RDW Plt Count Lymph % (Auto) [place] % (Auto) [place] # (Auto) Seg Neutrophils % Seg Neuts % (Manual) Lymphocytes % (Manual) Monocytes % (Manual) Nucleated RBC % Seg Neutrophils # Seg Neutrophils # Man Lymphocytes # (Manual) Monocytes # (Manual) PT INR D-Dimer ABG pH 7.277 L POC ABG pCO2 55.9 H POC ABG pO2 54.4 L ABG pO2 ABG HCO3 ABG O2 Saturation ABG Base Excess ABG Hemoglobin ABG Oxyhemoglobin 83.0 L ABG Sodium ABG Potassium 4.8 H ABG Glucose 180 H Oxyhemoglobin Sodium Potassium Chloride Carbon Dioxide BUN 38 H Creatinine Glucose 249 H POC Glucose 278 H Lactic Acid Phosphorus Magnesium Ferritin Lactate Dehydrogenase C-Reactive Protein NT-Pro-B Natriuret Pep Total Protein Albumin 3.2 L Triglycerides Arterial Blood Glucose 180 H Ur Specific [place] Coronavirus (PCR) 03/11/21 03/11/21 03/11/21 11:29 15:06 15:48 WBC RBC Hgb Hct MCV MCHC RDW Plt Count Lymph % (Auto) [place] % (Auto) [place] # (Auto) Seg Neutrophils % Seg Neuts % (Manual) Lymphocytes % (Manual) Monocytes % (Manual) Nucleated RBC % Seg Neutrophils # Seg Neutrophils # Man Lymphocytes # (Manual) Monocytes # (Manual) PT INR D-Dimer ABG pH 7.260 L POC ABG pCO2 POC ABG pO2 ABG pO2 53.5 L ABG HCO3 29.5 H ABG O2 Saturation 84.0 L ABG Base Excess ABG Hemoglobin ABG Oxyhemoglobin ABG Sodium ABG Potassium ABG Glucose Oxyhemoglobin 82.3 L Sodium Potassium Chloride Carbon Dioxide BUN Creatinine Glucose POC Glucose 288 H 295 H Lactic Acid Phosphorus Magnesium Ferritin Lactate Dehydrogenase C-Reactive Protein NT-Pro-B Natriuret Pep Total Protein Albumin Triglycerides Arterial Blood Glucose Ur Specific [place] Coronavirus (PCR) 03/12/21 03/12/21 03/12/21 00:01 05:24 08:03 WBC RBC Hgb Hct MCV MCHC RDW Plt Count Lymph % (Auto) [place] % (Auto) [place] # (Auto) Seg Neutrophils % Seg Neuts % (Manual) Lymphocytes % (Manual) Monocytes % (Manual) Nucleated RBC % Seg Neutrophils # Seg Neutrophils # Man Lymphocytes # (Manual) Monocytes # (Manual) PT INR D-Dimer ABG pH POC ABG pCO2 POC ABG pO2 ABG pO2 ABG HCO3 ABG O2 Saturation ABG Base Excess ABG Hemoglobin ABG Oxyhemoglobin ABG Sodium ABG Potassium ABG Glucose Oxyhemoglobin Sodium 135 L Potassium Chloride Carbon Dioxide BUN 48 H Creatinine Glucose 358 H POC Glucose 304 H 310 H Lactic Acid Phosphorus Magnesium Ferritin Lactate Dehydrogenase C-Reactive Protein NT-Pro-B Natriuret Pep Total Protein 6.0 L Albumin 2.9 L Triglycerides Arterial Blood Glucose Ur Specific [place] Coronavirus (PCR) 03/12/21 03/12/21 03/12/21 08:03 10:43 11:31 WBC 14.6 H RBC Hgb Hct MCV MCHC RDW Plt Count Lymph % (Auto) [place] % (Auto) [place] # (Auto) Seg Neutrophils % Seg Neuts % (Manual) Lymphocytes % (Manual) Monocytes % (Manual) Nucleated RBC % Seg Neutrophils # Seg Neutrophils # Man Lymphocytes # (Manual) Monocytes # (Manual) PT INR D-Dimer ABG pH 7.248 L POC ABG pCO2 POC ABG pO2 ABG pO2 73.7 L ABG HCO3 32.0 H ABG O2 Saturation 93.9 L ABG Base Excess ABG Hemoglobin ABG Oxyhemoglobin ABG Sodium ABG Potassium ABG Glucose Oxyhemoglobin 92.1 L Sodium Potassium Chloride Carbon Dioxide BUN Creatinine Glucose POC Glucose 359 H Lactic Acid Phosphorus Magnesium Ferritin Lactate Dehydrogenase C-Reactive Protein NT-Pro-B Natriuret Pep Total Protein Albumin Triglycerides Arterial Blood Glucose Ur Specific [place] Coronavirus (PCR) 03/12/21 03/12/21 03/13/21 17:20 21:54 00:02 WBC RBC Hgb Hct MCV MCHC RDW Plt Count Lymph % (Auto) [place] % (Auto) [place] # (Auto) Seg Neutrophils % Seg Neuts % (Manual) Lymphocytes % (Manual) Monocytes % (Manual) Nucleated RBC % Seg Neutrophils # Seg Neutrophils # Man Lymphocytes # (Manual) Monocytes # (Manual) PT INR D-Dimer ABG pH 7.238 L POC ABG pCO2 71.9 H POC ABG pO2 53.6 L ABG pO2 ABG HCO3 ABG O2 Saturation ABG Base Excess ABG Hemoglobin ABG Oxyhemoglobin 84.8 L ABG Sodium 134.2 L ABG Potassium 4.9 H ABG Glucose 306 H Oxyhemoglobin Sodium Potassium Chloride Carbon Dioxide BUN Creatinine Glucose POC Glucose 374 H 308 H Lactic Acid Phosphorus Magnesium Ferritin Lactate Dehydrogenase C-Reactive Protein NT-Pro-B Natriuret Pep Total Protein Albumin Triglycerides Arterial Blood Glucose 306 H Ur Specific [place] Coronavirus (PCR) 03/13/21 03/13/21 03/13/21 05:22 05:44 05:44 WBC 13.9 H RBC Hgb Hct MCV MCHC RDW Plt Count Lymph % (Auto) [place] % (Auto) [place] # (Auto) Seg Neutrophils % Seg Neuts % (Manual) Lymphocytes % (Manual) Monocytes % (Manual) Nucleated RBC % Seg Neutrophils # Seg Neutrophils # Man Lymphocytes # (Manual) Monocytes # (Manual) PT INR D-Dimer 3567.97 H ABG pH POC ABG pCO2 POC ABG pO2 ABG pO2 ABG HCO3 ABG O2 Saturation ABG Base Excess ABG Hemoglobin ABG Oxyhemoglobin ABG Sodium ABG Potassium ABG Glucose Oxyhemoglobin Sodium Potassium Chloride Carbon Dioxide BUN Creatinine Glucose POC Glucose 316 H Lactic Acid Phosphorus Magnesium Ferritin Lactate Dehydrogenase C-Reactive Protein NT-Pro-B Natriuret Pep Total Protein Albumin Triglycerides Arterial Blood Glucose Ur Specific [place] Coronavirus (PCR) 03/13/21 03/13/21 03/13/21 05:44 05:44 11:15 WBC RBC Hgb Hct MCV MCHC RDW Plt Count Lymph % (Auto) [place] % (Auto) [place] # (Auto) Seg Neutrophils % Seg Neuts % (Manual) Lymphocytes % (Manual) Monocytes % (Manual) Nucleated RBC % Seg Neutrophils # Seg Neutrophils # Man Lymphocytes # (Manual) Monocytes # (Manual) PT INR D-Dimer ABG pH 7.310 L POC ABG pCO2 POC ABG pO2 ABG pO2 52.3 L ABG HCO3 34.1 H ABG O2 Saturation 86.8 L ABG Base Excess 5.5 H ABG Hemoglobin 13.8 L ABG Oxyhemoglobin ABG Sodium ABG Potassium ABG Glucose Oxyhemoglobin 85.1 L Sodium Potassium Chloride Carbon Dioxide BUN Creatinine Glucose POC Glucose Lactic Acid Phosphorus Magnesium Ferritin 858.7 H Lactate Dehydrogenase 348 H C-Reactive Protein 2.80 H NT-Pro-B Natriuret Pep Total Protein Albumin Triglycerides Arterial Blood Glucose Ur Specific [place] Coronavirus (PCR) 03/13/21 03/13/21 03/13/21 11:21 15:47 19:23 WBC RBC Hgb Hct MCV MCHC RDW Plt Count Lymph % (Auto) [place] % (Auto) [place] # (Auto) Seg Neutrophils % Seg Neuts % (Manual) Lymphocytes % (Manual) Monocytes % (Manual) Nucleated RBC % Seg Neutrophils # Seg Neutrophils # Man Lymphocytes # (Manual) Monocytes # (Manual) PT INR D-Dimer ABG pH POC ABG pCO2 POC ABG pO2 ABG pO2 ABG HCO3 ABG O2 Saturation ABG Base Excess ABG Hemoglobin ABG Oxyhemoglobin ABG Sodium ABG Potassium ABG Glucose Oxyhemoglobin Sodium 136 L Potassium 5.9 H Chloride Carbon Dioxide BUN 50 H Creatinine Glucose 397 H POC Glucose 322 H 317 H Lactic Acid Phosphorus Magnesium Ferritin Lactate Dehydrogenase C-Reactive Protein NT-Pro-B Natriuret Pep Total Protein Albumin Triglycerides Arterial Blood Glucose Ur Specific [place] Coronavirus (PCR) 03/13/21 03/14/21 03/14/21 23:46 05:32 05:50 WBC 11.6 H RBC Hgb Hct MCV MCHC RDW Plt Count Lymph % (Auto) [place] % (Auto) [place] # (Auto) Seg Neutrophils % Seg Neuts % (Manual) Lymphocytes % (Manual) Monocytes % (Manual) Nucleated RBC % Seg Neutrophils # Seg Neutrophils # Man Lymphocytes # (Manual) Monocytes # (Manual) PT INR D-Dimer ABG pH POC ABG pCO2 POC ABG pO2 ABG pO2 ABG HCO3 ABG O2 Saturation ABG Base Excess ABG Hemoglobin ABG Oxyhemoglobin ABG Sodium ABG Potassium ABG Glucose Oxyhemoglobin Sodium Potassium Chloride Carbon Dioxide BUN Creatinine Glucose POC Glucose 332 H 316 H Lactic Acid Phosphorus Magnesium Ferritin Lactate Dehydrogenase C-Reactive Protein NT-Pro-B Natriuret Pep Total Protein Albumin Triglycerides Arterial Blood Glucose Ur Specific [place] Coronavirus (PCR) 0103/14/21 03/14/21 05:50 11:33 16:53 WBC RBC Hgb Hct MCV MCHC RDW Plt Count Lymph % (Auto) [place] % (Auto) [place] # (Auto) Seg Neutrophils % Seg Neuts % (Manual) Lymphocytes % (Manual) Monocytes % (Manual) Nucleated RBC % Seg Neutrophils # Seg Neutrophils # Man Lymphocytes # (Manual) Monocytes # (Manual) PT INR D-Dimer ABG pH POC ABG pCO2 POC ABG pO2 ABG pO2 ABG HCO3 ABG O2 Saturation ABG Base Excess ABG Hemoglobin ABG Oxyhemoglobin ABG Sodium ABG Potassium ABG Glucose Oxyhemoglobin Sodium Potassium 5.9 H Chloride Carbon Dioxide 31 H BUN 48 H Creatinine Glucose 380 H POC Glucose 315 H 235 H Lactic Acid Phosphorus Magnesium 3.40 H Ferritin Lactate Dehydrogenase C-Reactive Protein NT-Pro-B Natriuret Pep Total Protein Albumin Triglycerides Arterial Blood Glucose Ur Specific [place] Coronavirus (PCR) 03/14/21 03/14/21 03/15/21 18:34 23:27 01:22 WBC RBC Hgb Hct 46.3 H MCV MCHC RDW Plt Count Lymph % (Auto) [place] % (Auto) [place] # (Auto) Seg Neutrophils % Seg Neuts % (Manual) Lymphocytes % (Manual) Monocytes % (Manual) Nucleated RBC % Seg Neutrophils # Seg Neutrophils # Man Lymphocytes # (Manual) Monocytes # (Manual) PT INR D-Dimer ABG pH POC ABG pCO2 POC ABG pO2 ABG pO2 ABG HCO3 ABG O2 Saturation ABG Base Excess ABG Hemoglobin ABG Oxyhemoglobin ABG Sodium ABG Potassium ABG Glucose Oxyhemoglobin Sodium 146 H Potassium Chloride Carbon Dioxide 34 H BUN 49 H Creatinine Glucose 285 H POC Glucose 203 H Lactic Acid Phosphorus Magnesium Ferritin Lactate Dehydrogenase C-Reactive Protein NT-Pro-B Natriuret Pep Total Protein Albumin Triglycerides Arterial Blood Glucose Ur Specific [place] Coronavirus (PCR) 03/15/21 03/15/21 03/15/21 04:00 06:06 06:06 WBC RBC Hgb Hct MCV MCHC RDW Plt Count Lymph % (Auto) [place] % (Auto) [place] # (Auto) Seg Neutrophils % Seg Neuts % (Manual) Lymphocytes % (Manual) Monocytes % (Manual) Nucleated RBC % Seg Neutrophils # Seg Neutrophils # Man Lymphocytes # (Manual) Monocytes # (Manual) PT INR D-Dimer 1781.79 H ABG pH POC ABG pCO2 POC ABG pO2 ABG pO2 ABG HCO3 ABG O2 Saturation ABG Base Excess ABG Hemoglobin ABG Oxyhemoglobin ABG Sodium ABG Potassium ABG Glucose Oxyhemoglobin Sodium 148 H Potassium 5.7 H D Chloride 108.0 H Carbon Dioxide 31 H BUN 46 H Creatinine Glucose 139 H POC Glucose Lactic Acid Phosphorus 4.80 H D Magnesium 3.00 H Ferritin 976.4 H Lactate Dehydrogenase 630 H C-Reactive Protein NT-Pro-B Natriuret Pep Total Protein Albumin Triglycerides Arterial Blood Glucose Ur Specific [place] Coronavirus (PCR) 03/15/21 03/15/21 03/15/21 11:56 14:05 17:09 WBC RBC Hgb Hct MCV MCHC RDW Plt Count Lymph % (Auto) [place] % (Auto) [place] # (Auto) Seg Neutrophils % Seg Neuts % (Manual) Lymphocytes % (Manual) Monocytes % (Manual) Nucleated RBC % Seg Neutrophils # Seg Neutrophils # Man Lymphocytes # (Manual) Monocytes # (Manual) PT INR D-Dimer ABG pH POC ABG pCO2 POC ABG pO2 ABG pO2 52.1 L ABG HCO3 36.6 H ABG O2 Saturation 87.6 L ABG Base Excess 9.5 H ABG Hemoglobin ABG Oxyhemoglobin ABG Sodium ABG Potassium ABG Glucose Oxyhemoglobin 85.7 L Sodium Potassium Chloride Carbon Dioxide BUN Creatinine Glucose POC Glucose 219 H 263 H Lactic Acid Phosphorus Magnesium Ferritin Lactate Dehydrogenase C-Reactive Protein NT-Pro-B Natriuret Pep Total Protein Albumin Triglycerides Arterial Blood Glucose Ur Specific [place] Coronavirus (PCR) 03/16/21 03/16/21 03/16/21 00:32 04:11 04:11 WBC 11.9 H RBC Hgb Hct MCV MCHC 30 L RDW Plt Count Lymph % (Auto) [place] % (Auto) [place] # (Auto) Seg Neutrophils % Seg Neuts % (Manual) Lymphocytes % (Manual) Monocytes % (Manual) Nucleated RBC % Seg Neutrophils # Seg Neutrophils # Man Lymphocytes # (Manual) Monocytes # (Manual) PT INR D-Dimer ABG pH POC ABG pCO2 POC ABG pO2 ABG pO2 ABG HCO3 ABG O2 Saturation ABG Base Excess ABG Hemoglobin ABG Oxyhemoglobin ABG Sodium ABG Potassium ABG Glucose Oxyhemoglobin Sodium 151 H Potassium Chloride Carbon Dioxide 35 H BUN 48 H Creatinine Glucose 152 H POC Glucose 165 H Lactic Acid Phosphorus Magnesium Ferritin Lactate Dehydrogenase C-Reactive Protein NT-Pro-B Natriuret Pep Total Protein Albumin Triglycerides Arterial Blood Glucose Ur Specific [place] Coronavirus (PCR) 03/16/21 03/16/21 03/16/21 04:11 05:26 11:35 WBC RBC Hgb Hct MCV MCHC RDW Plt Count Lymph % (Auto) [place] % (Auto) [place] # (Auto) Seg Neutrophils % Seg Neuts % (Manual) Lymphocytes % (Manual) Monocytes % (Manual) Nucleated RBC % Seg Neutrophils # Seg Neutrophils # Man Lymphocytes # (Manual) Monocytes # (Manual) PT INR D-Dimer ABG pH POC ABG pCO2 POC ABG pO2 ABG pO2 ABG HCO3 ABG O2 Saturation ABG Base Excess ABG Hemoglobin ABG Oxyhemoglobin ABG Sodium ABG Potassium ABG Glucose Oxyhemoglobin Sodium Potassium Chloride Carbon Dioxide BUN Creatinine Glucose POC Glucose 162 H 187 H Lactic Acid Phosphorus Magnesium Ferritin Lactate Dehydrogenase C-Reactive Protein NT-Pro-B Natriuret Pep Total Protein Albumin Triglycerides 267 H Arterial Blood Glucose Ur Specific [place] Coronavirus (PCR) 03/16/21 03/16/21 03/16/21 17:29 22:25 23:22 WBC RBC Hgb Hct MCV MCHC RDW Plt Count Lymph % (Auto) [place] % (Auto) [place] # (Auto) Seg Neutrophils % Seg Neuts % (Manual) Lymphocytes % (Manual) Monocytes % (Manual) Nucleated RBC % Seg Neutrophils # Seg Neutrophils # Man Lymphocytes # (Manual) Monocytes # (Manual) PT INR D-Dimer ABG pH POC ABG pCO2 POC ABG pO2 ABG pO2 ABG HCO3 ABG O2 Saturation ABG Base Excess ABG Hemoglobin ABG Oxyhemoglobin ABG Sodium ABG Potassium ABG Glucose Oxyhemoglobin Sodium Potassium Chloride Carbon Dioxide BUN Creatinine Glucose POC Glucose 237 H 165 H 189 H Lactic Acid Phosphorus Magnesium Ferritin Lactate Dehydrogenase C-Reactive Protein NT-Pro-B Natriuret Pep Total Protein Albumin Triglycerides Arterial Blood Glucose Ur Specific [place] Coronavirus (PCR) 03/17/21 03/17/21 03/17/21 04:40 04:40 04:40 WBC 14.1 H RBC Hgb Hct MCV MCHC RDW 15.3 H Plt Count Lymph % (Auto) 12.6 L [place] % (Auto) 11.3 H [place] # (Auto) 1.6 H Seg Neutrophils % 74.9 H Seg Neuts % (Manual) Lymphocytes % (Manual) Monocytes % (Manual) Nucleated RBC % Seg Neutrophils # 10.5 H Seg Neutrophils # Man Lymphocytes # (Manual) Monocytes # (Manual) PT INR D-Dimer 1359.12 H ABG pH POC ABG pCO2 POC ABG pO2 ABG pO2 ABG HCO3 ABG O2 Saturation ABG Base Excess ABG Hemoglobin ABG Oxyhemoglobin ABG Sodium ABG Potassium ABG Glucose Oxyhemoglobin Sodium 148 H Potassium Chloride 107.5 H Carbon Dioxide 33 H BUN 42 H Creatinine Glucose 183 H POC Glucose Lactic Acid Phosphorus Magnesium 2.70 H Ferritin Lactate Dehydrogenase C-Reactive Protein NT-Pro-B Natriuret Pep Total Protein Albumin Triglycerides Arterial Blood Glucose Ur Specific [place] Coronavirus (PCR) 03/17/21 03/17/21 03/17/21 05:53 11:05 11:51 WBC RBC Hgb Hct MCV MCHC RDW Plt Count Lymph % (Auto) [place] % (Auto) [place] # (Auto) Seg Neutrophils % Seg Neuts % (Manual) Lymphocytes % (Manual) Monocytes % (Manual) Nucleated RBC % Seg Neutrophils # Seg Neutrophils # Man Lymphocytes # (Manual) Monocytes # (Manual) PT INR D-Dimer ABG pH POC ABG pCO2 POC ABG pO2 ABG pO2 ABG HCO3 35.7 H ABG O2 Saturation ABG Base Excess 8.7 H ABG Hemoglobin ABG Oxyhemoglobin ABG Sodium ABG Potassium ABG Glucose Oxyhemoglobin 94.2 L Sodium Potassium Chloride Carbon Dioxide BUN Creatinine Glucose POC Glucose 176 H 197 H Lactic Acid Phosphorus Magnesium Ferritin Lactate Dehydrogenase C-Reactive Protein NT-Pro-B Natriuret Pep Total Protein Albumin Triglycerides Arterial Blood Glucose Ur Specific [place] Coronavirus (PCR) 03/17/21 03/17/21 03/17/21 16:54 21:10 23:33 WBC RBC Hgb Hct MCV MCHC RDW Plt Count Lymph % (Auto) [place] % (Auto) [place] # (Auto) Seg Neutrophils % Seg Neuts % (Manual) Lymphocytes % (Manual) Monocytes % (Manual) Nucleated RBC % Seg Neutrophils # Seg Neutrophils # Man Lymphocytes # (Manual) Monocytes # (Manual) PT INR D-Dimer ABG pH POC ABG pCO2 POC ABG pO2 ABG pO2 ABG HCO3 ABG O2 Saturation ABG Base Excess ABG Hemoglobin ABG Oxyhemoglobin ABG Sodium ABG Potassium ABG Glucose Oxyhemoglobin Sodium Potassium Chloride Carbon Dioxide BUN Creatinine Glucose POC Glucose 135 H 160 H 138 H Lactic Acid Phosphorus Magnesium Ferritin Lactate Dehydrogenase C-Reactive Protein NT-Pro-B Natriuret Pep Total Protein Albumin Triglycerides Arterial Blood Glucose Ur Specific [place] Coronavirus (PCR) 03/18/21 03/18/21 03/18/21 04:18 04:50 05:43 WBC RBC Hgb Hct MCV MCHC RDW Plt Count Lymph % (Auto) [place] % (Auto) [place] # (Auto) Seg Neutrophils % Seg Neuts % (Manual) Lymphocytes % (Manual) Monocytes % (Manual) Nucleated RBC % Seg Neutrophils # Seg Neutrophils # Man Lymphocytes # (Manual) Monocytes # (Manual) PT INR D-Dimer ABG pH POC ABG pCO2 POC ABG pO2 ABG pO2 59.8 L ABG HCO3 36.5 H ABG O2 Saturation 90.7 L ABG Base Excess 9.4 H ABG Hemoglobin 12.0 L ABG Oxyhemoglobin ABG Sodium ABG Potassium ABG Glucose Oxyhemoglobin 88.9 L Sodium Potassium Chloride 107.2 H Carbon Dioxide 34 H BUN 38 H Creatinine 0.7 L Glucose 136 H POC Glucose 128 H Lactic Acid Phosphorus Magnesium Ferritin Lactate Dehydrogenase C-Reactive Protein NT-Pro-B Natriuret Pep Total Protein Albumin Triglycerides Arterial Blood Glucose Ur Specific [place] Coronavirus (PCR) 03/18/21 03/18/21 03/18/21 11:20 17:35 23:35 WBC RBC Hgb Hct MCV MCHC RDW Plt Count Lymph % (Auto) [place] % (Auto) [place] # (Auto) Seg Neutrophils % Seg Neuts % (Manual) Lymphocytes % (Manual) Monocytes % (Manual) Nucleated RBC % Seg Neutrophils # Seg Neutrophils # Man Lymphocytes # (Manual) Monocytes # (Manual) PT INR D-Dimer ABG pH POC ABG pCO2 POC ABG pO2 ABG pO2 70.7 L ABG HCO3 33.6 H ABG O2 Saturation ABG Base Excess 8.0 H ABG Hemoglobin ABG Oxyhemoglobin ABG Sodium ABG Potassium ABG Glucose Oxyhemoglobin 93.7 L Sodium Potassium Chloride Carbon Dioxide BUN Creatinine Glucose POC Glucose 189 H 144 H Lactic Acid Phosphorus Magnesium Ferritin Lactate Dehydrogenase C-Reactive Protein NT-Pro-B Natriuret Pep Total Protein Albumin Triglycerides Arterial Blood Glucose Ur Specific [place] Coronavirus (PCR) 03/19/21 03/19/21 03/19/21 02:35 04:20 04:20 WBC 14.0 H RBC Hgb Hct MCV MCHC RDW Plt Count Lymph % (Auto) [place] % (Auto) [place] # (Auto) Seg Neutrophils % Seg Neuts % (Manual) Lymphocytes % (Manual) Monocytes % (Manual) Nucleated RBC % Seg Neutrophils # Seg Neutrophils # Man Lymphocytes # (Manual) Monocytes # (Manual) PT INR D-Dimer ABG pH POC ABG pCO2 POC ABG pO2 ABG pO2 ABG HCO3 32.0 H ABG O2 Saturation ABG Base Excess 5.2 H ABG Hemoglobin 13.6 L ABG Oxyhemoglobin ABG Sodium ABG Potassium ABG Glucose Oxyhemoglobin 94.6 L Sodium 146 H Potassium Chloride 109.3 H Carbon Dioxide BUN 36 H Creatinine Glucose 203 H POC Glucose Lactic Acid Phosphorus Magnesium Ferritin Lactate Dehydrogenase C-Reactive Protein NT-Pro-B Natriuret Pep Total Protein Albumin Triglycerides 254 H Arterial Blood Glucose Ur Specific [place] Coronavirus (PCR) 03/19/21 03/19/21 03/19/21 05:45 11:36 23:51 WBC RBC Hgb Hct MCV MCHC RDW Plt Count Lymph % (Auto) [place] % (Auto) [place] # (Auto) Seg Neutrophils % Seg Neuts % (Manual) Lymphocytes % (Manual) Monocytes % (Manual) Nucleated RBC % Seg Neutrophils # Seg Neutrophils # Man Lymphocytes # (Manual) Monocytes # (Manual) PT INR D-Dimer ABG pH POC ABG pCO2 POC ABG pO2 ABG pO2 ABG HCO3 ABG O2 Saturation ABG Base Excess ABG Hemoglobin ABG Oxyhemoglobin ABG Sodium ABG Potassium ABG Glucose Oxyhemoglobin Sodium Potassium Chloride Carbon Dioxide BUN Creatinine Glucose POC Glucose 164 H 172 H 140 H Lactic Acid Phosphorus Magnesium Ferritin Lactate Dehydrogenase C-Reactive Protein NT-Pro-B Natriuret Pep Total Protein Albumin Triglycerides Arterial Blood Glucose Ur Specific [place] Coronavirus (PCR) 03/20/21 03/20/21 03/20/21 03:29 04:45 04:45 WBC RBC Hgb Hct MCV 95 H MCHC RDW 15.7 H Plt Count Lymph % (Auto) [place] % (Auto) [place] # (Auto) Seg Neutrophils % Seg Neuts % (Manual) Lymphocytes % (Manual) Monocytes % (Manual) Nucleated RBC % Seg Neutrophils # Seg Neutrophils # Man Lymphocytes # (Manual) Monocytes # (Manual) PT INR D-Dimer ABG pH 7.349 L POC ABG pCO2 POC ABG pO2 ABG pO2 ABG HCO3 33.7 H ABG O2 Saturation ABG Base Excess 6.4 H ABG Hemoglobin 11.8 L ABG Oxyhemoglobin ABG Sodium ABG Potassium ABG Glucose Oxyhemoglobin 93.9 L Sodium 146 H Potassium 5.5 H Chloride 111.1 H Carbon Dioxide BUN 34 H Creatinine 0.7 L Glucose 145 H POC Glucose Lactic Acid Phosphorus Magnesium 2.50 H Ferritin Lactate Dehydrogenase C-Reactive Protein NT-Pro-B Natriuret Pep Total Protein Albumin Triglycerides Arterial Blood Glucose Ur Specific [place] Coronavirus (PCR) 03/20/21 03/20/21 03/20/21 05:41 09:08 11:54 WBC RBC Hgb Hct MCV MCHC RDW Plt Count Lymph % (Auto) [place] % (Auto) [place] # (Auto) Seg Neutrophils % Seg Neuts % (Manual) Lymphocytes % (Manual) Monocytes % (Manual) Nucleated RBC % Seg Neutrophils # Seg Neutrophils # Man Lymphocytes # (Manual) Monocytes # (Manual) PT INR D-Dimer ABG pH POC ABG pCO2 POC ABG pO2 ABG pO2 ABG HCO3 ABG O2 Saturation ABG Base Excess ABG Hemoglobin ABG Oxyhemoglobin ABG Sodium ABG Potassium ABG Glucose Oxyhemoglobin Sodium Potassium Chloride Carbon Dioxide BUN Creatinine Glucose POC Glucose 108 H 132 H 162 H Lactic Acid Phosphorus Magnesium Ferritin Lactate Dehydrogenase C-Reactive Protein NT-Pro-B Natriuret Pep Total Protein Albumin Triglycerides Arterial Blood Glucose Ur Specific [place] Coronavirus (PCR) 03/20/21 03/21/21 03/21/21 17:28 00:31 04:44 WBC RBC Hgb Hct MCV MCHC RDW Plt Count Lymph % (Auto) [place] % (Auto) [place] # (Auto) Seg Neutrophils % Seg Neuts % (Manual) Lymphocytes % (Manual) Monocytes % (Manual) Nucleated RBC % Seg Neutrophils # Seg Neutrophils # Man Lymphocytes # (Manual) Monocytes # (Manual) PT INR D-Dimer ABG pH POC ABG pCO2 POC ABG pO2 ABG pO2 ABG HCO3 ABG O2 Saturation ABG Base Excess ABG Hemoglobin ABG Oxyhemoglobin ABG Sodium ABG Potassium ABG Glucose Oxyhemoglobin Sodium Potassium Chloride 108.3 H Carbon Dioxide BUN 30 H Creatinine 0.7 L Glucose POC Glucose 160 H 122 H Lactic Acid Phosphorus Magnesium Ferritin Lactate Dehydrogenase C-Reactive Protein NT-Pro-B Natriuret Pep Total Protein Albumin Triglycerides Arterial Blood Glucose Ur Specific [place] Coronavirus (PCR) 03/21/21 03/21/21 03/21/21 09:18 10:09 13:20 WBC RBC Hgb Hct MCV MCHC RDW Plt Count Lymph % (Auto) [place] % (Auto) [place] # (Auto) Seg Neutrophils % Seg Neuts % (Manual) Lymphocytes % (Manual) Monocytes % (Manual) Nucleated RBC % Seg Neutrophils # Seg Neutrophils # Man Lymphocytes # (Manual) Monocytes # (Manual) PT INR D-Dimer ABG pH POC ABG pCO2 POC ABG pO2 ABG pO2 60.7 L ABG HCO3 30.6 H ABG O2 Saturation 93.6 L ABG Base Excess 5.3 H ABG Hemoglobin ABG Oxyhemoglobin ABG Sodium ABG Potassium ABG Glucose Oxyhemoglobin 91.7 L Sodium Potassium Chloride Carbon Dioxide BUN Creatinine Glucose POC Glucose 169 H 122 H Lactic Acid Phosphorus Magnesium Ferritin Lactate Dehydrogenase C-Reactive Protein NT-Pro-B Natriuret Pep Total Protein Albumin Triglycerides Arterial Blood Glucose Ur Specific [place] Coronavirus (PCR) 03/21/21 03/21/21 03/21/21 17:25 22:41 23:52 WBC RBC Hgb Hct MCV MCHC RDW Plt Count Lymph % (Auto) [place] % (Auto) [place] # (Auto) Seg Neutrophils % Seg Neuts % (Manual) Lymphocytes % (Manual) Monocytes % (Manual) Nucleated RBC % Seg Neutrophils # Seg Neutrophils # Man Lymphocytes # (Manual) Monocytes # (Manual) PT INR D-Dimer ABG pH POC ABG pCO2 POC ABG pO2 ABG pO2 ABG HCO3 ABG O2 Saturation ABG Base Excess ABG Hemoglobin ABG Oxyhemoglobin ABG Sodium ABG Potassium ABG Glucose Oxyhemoglobin Sodium Potassium Chloride Carbon Dioxide BUN Creatinine Glucose POC Glucose 121 H 139 H 140 H Lactic Acid Phosphorus Magnesium Ferritin Lactate Dehydrogenase C-Reactive Protein NT-Pro-B Natriuret Pep Total Protein Albumin Triglycerides Arterial Blood Glucose Ur Specific [place] Coronavirus (PCR) 03/22/21 03/22/21 03/22/21 05:58 07:26 07:26 WBC RBC Hgb Hct MCV MCHC 31 L RDW 16.1 H Plt Count Lymph % (Auto) [place] % (Auto) [place] # (Auto) Seg Neutrophils % Seg Neuts % (Manual) Lymphocytes % (Manual) Monocytes % (Manual) Nucleated RBC % Seg Neutrophils # Seg Neutrophils # Man Lymphocytes # (Manual) Monocytes # (Manual) PT INR D-Dimer ABG pH POC ABG pCO2 POC ABG pO2 ABG pO2 ABG HCO3 ABG O2 Saturation ABG Base Excess ABG Hemoglobin ABG Oxyhemoglobin ABG Sodium ABG Potassium ABG Glucose Oxyhemoglobin Sodium Potassium Chloride 108.5 H Carbon Dioxide BUN 44 H Creatinine Glucose 120 H POC Glucose 131 H Lactic Acid Phosphorus 5.80 H Magnesium 2.80 H Ferritin Lactate Dehydrogenase C-Reactive Protein NT-Pro-B Natriuret Pep Total Protein Albumin Triglycerides 305 H Arterial Blood Glucose Ur Specific [place] Coronavirus (PCR) 03/22/21 03/22/21 03/22/21 09:38 11:15 16:01 WBC RBC Hgb Hct MCV MCHC RDW Plt Count Lymph % (Auto) [place] % (Auto) [place] # (Auto) Seg Neutrophils % Seg Neuts % (Manual) Lymphocytes % (Manual) Monocytes % (Manual) Nucleated RBC % Seg Neutrophils # Seg Neutrophils # Man Lymphocytes # (Manual) Monocytes # (Manual) PT INR D-Dimer ABG pH POC ABG pCO2 POC ABG pO2 ABG pO2 70.0 L ABG HCO3 30.0 H ABG O2 Saturation 94.6 L ABG Base Excess 3.6 H ABG Hemoglobin 13.5 L ABG Oxyhemoglobin ABG Sodium ABG Potassium ABG Glucose Oxyhemoglobin 92.5 L Sodium Potassium Chloride Carbon Dioxide BUN Creatinine Glucose POC Glucose 186 H 148 H Lactic Acid Phosphorus Magnesium Ferritin Lactate Dehydrogenase C-Reactive Protein NT-Pro-B Natriuret Pep Total Protein Albumin Triglycerides Arterial Blood Glucose Ur Specific [place] Coronavirus (PCR) 03/22/21 03/22/21 03/23/21 21:13 23:48 07:04 WBC 11.7 H RBC Hgb Hct MCV 95 H MCHC RDW 16.1 H Plt Count Lymph % (Auto) [place] % (Auto) [place] # (Auto) Seg Neutrophils % Seg Neuts % (Manual) Lymphocytes % (Manual) Monocytes % (Manual) Nucleated RBC % Seg Neutrophils # Seg Neutrophils # Man Lymphocytes # (Manual) Monocytes # (Manual) PT INR D-Dimer ABG pH POC ABG pCO2 POC ABG pO2 ABG pO2 ABG HCO3 ABG O2 Saturation ABG Base Excess ABG Hemoglobin ABG Oxyhemoglobin ABG Sodium ABG Potassium ABG Glucose Oxyhemoglobin Sodium Potassium Chloride Carbon Dioxide BUN Creatinine Glucose POC Glucose 121 H 114 H Lactic Acid Phosphorus Magnesium Ferritin Lactate Dehydrogenase C-Reactive Protein NT-Pro-B Natriuret Pep Total Protein Albumin Triglycerides Arterial Blood Glucose Ur Specific [place] Coronavirus (PCR) 03/23/21 03/23/21 03/23/21 07:04 08:35 11:19 WBC RBC Hgb Hct MCV MCHC RDW Plt Count Lymph % (Auto) [place] % (Auto) [place] # (Auto) Seg Neutrophils % Seg Neuts % (Manual) Lymphocytes % (Manual) Monocytes % (Manual) Nucleated RBC % Seg Neutrophils # Seg Neutrophils # Man Lymphocytes # (Manual) Monocytes # (Manual) PT INR D-Dimer ABG pH 7.345 L POC ABG pCO2 POC ABG pO2 ABG pO2 167.9 H ABG HCO3 32.2 H ABG O2 Saturation ABG Base Excess 4.8 H ABG Hemoglobin 13.4 L ABG Oxyhemoglobin ABG Sodium ABG Potassium ABG Glucose Oxyhemoglobin Sodium 148 H Potassium Chloride 111.3 H Carbon Dioxide 31 H BUN 31 H Creatinine Glucose 131 H POC Glucose 165 H Lactic Acid Phosphorus Magnesium 2.50 H Ferritin Lactate Dehydrogenase C-Reactive Protein NT-Pro-B Natriuret Pep Total Protein Albumin Triglycerides Arterial Blood Glucose Ur Specific [place] Coronavirus (PCR) 03/23/21 03/23/21 03/24/21 16:48 20:52 00:07 WBC RBC Hgb Hct MCV MCHC RDW Plt Count Lymph % (Auto) [place] % (Auto) [place] # (Auto) Seg Neutrophils % Seg Neuts % (Manual) Lymphocytes % (Manual) Monocytes % (Manual) Nucleated RBC % Seg Neutrophils # Seg Neutrophils # Man Lymphocytes # (Manual) Monocytes # (Manual) PT INR D-Dimer ABG pH POC ABG pCO2 POC ABG pO2 ABG pO2 ABG HCO3 ABG O2 Saturation ABG Base Excess ABG Hemoglobin ABG Oxyhemoglobin ABG Sodium ABG Potassium ABG Glucose Oxyhemoglobin Sodium Potassium Chloride Carbon Dioxide BUN Creatinine Glucose POC Glucose 160 H 127 H 147 H Lactic Acid Phosphorus Magnesium Ferritin Lactate Dehydrogenase C-Reactive Protein NT-Pro-B Natriuret Pep Total Protein Albumin Triglycerides Arterial Blood Glucose Ur Specific [place] Coronavirus (PCR) 03/24/21 03/24/21 03/24/21 04:34 04:34 05:20 WBC 13.3 H RBC Hgb Hct MCV MCHC 31 L RDW 16.1 H Plt Count Lymph % (Auto) [place] % (Auto) [place] # (Auto) Seg Neutrophils % Seg Neuts % (Manual) Lymphocytes % (Manual) Monocytes % (Manual) Nucleated RBC % Seg Neutrophils # Seg Neutrophils # Man Lymphocytes # (Manual) Monocytes # (Manual) PT INR D-Dimer ABG pH POC ABG pCO2 POC ABG pO2 ABG pO2 ABG HCO3 ABG O2 Saturation ABG Base Excess ABG Hemoglobin ABG Oxyhemoglobin ABG Sodium ABG Potassium ABG Glucose Oxyhemoglobin Sodium Potassium 5.2 H Chloride Carbon Dioxide BUN 28 H Creatinine 0.7 L Glucose 152 H POC Glucose 141 H Lactic Acid Phosphorus Magnesium Ferritin Lactate Dehydrogenase C-Reactive Protein NT-Pro-B Natriuret Pep Total Protein Albumin Triglycerides Arterial Blood Glucose Ur Specific [place] Coronavirus (PCR) 03/24/21 03/24/21 03/24/21 09:40 11:38 16:45 WBC RBC Hgb Hct MCV MCHC RDW Plt Count Lymph % (Auto) [place] % (Auto) [place] # (Auto) Seg Neutrophils % Seg Neuts % (Manual) Lymphocytes % (Manual) Monocytes % (Manual) Nucleated RBC % Seg Neutrophils # Seg Neutrophils # Man Lymphocytes # (Manual) Monocytes # (Manual) PT INR D-Dimer ABG pH POC ABG pCO2 POC ABG pO2 ABG pO2 ABG HCO3 ABG O2 Saturation ABG Base Excess ABG Hemoglobin ABG Oxyhemoglobin ABG Sodium ABG Potassium ABG Glucose Oxyhemoglobin Sodium Potassium Chloride Carbon Dioxide BUN Creatinine Glucose POC Glucose 126 H 136 H 118 H Lactic Acid Phosphorus Magnesium Ferritin Lactate Dehydrogenase C-Reactive Protein NT-Pro-B Natriuret Pep Total Protein Albumin Triglycerides Arterial Blood Glucose Ur Specific [place] Coronavirus (PCR) 03/24/21 03/24/21 03/25/21 21:03 23:49 04:32 WBC RBC Hgb Hct MCV MCHC RDW 16.1 H Plt Count 121 L Lymph % (Auto) [place] % (Auto) [place] # (Auto) Seg Neutrophils % Seg Neuts % (Manual) Lymphocytes % (Manual) Monocytes % (Manual) Nucleated RBC % Seg Neutrophils # Seg Neutrophils # Man Lymphocytes # (Manual) Monocytes # (Manual) PT INR D-Dimer ABG pH POC ABG pCO2 POC ABG pO2 ABG pO2 ABG HCO3 ABG O2 Saturation ABG Base Excess ABG Hemoglobin ABG Oxyhemoglobin ABG Sodium ABG Potassium ABG Glucose Oxyhemoglobin Sodium Potassium Chloride Carbon Dioxide BUN Creatinine Glucose POC Glucose 116 H 125 H Lactic Acid Phosphorus Magnesium Ferritin Lactate Dehydrogenase C-Reactive Protein NT-Pro-B Natriuret Pep Total Protein Albumin Triglycerides Arterial Blood Glucose Ur Specific [place] Coronavirus (PCR) 03/25/21 03/25/21 03/25/21 04:32 05:21 09:29 WBC RBC Hgb Hct MCV MCHC RDW Plt Count Lymph % (Auto) [place] % (Auto) [place] # (Auto) Seg Neutrophils % Seg Neuts % (Manual) Lymphocytes % (Manual) Monocytes % (Manual) Nucleated RBC % Seg Neutrophils # Seg Neutrophils # Man Lymphocytes # (Manual) Monocytes # (Manual) PT INR D-Dimer ABG pH POC ABG pCO2 POC ABG pO2 ABG pO2 ABG HCO3 ABG O2 Saturation ABG Base Excess ABG Hemoglobin ABG Oxyhemoglobin ABG Sodium ABG Potassium ABG Glucose Oxyhemoglobin Sodium 135 L D Potassium Chloride Carbon Dioxide BUN 25 H Creatinine 0.7 L Glucose 168 H POC Glucose 149 H 115 H Lactic Acid Phosphorus Magnesium Ferritin Lactate Dehydrogenase C-Reactive Protein NT-Pro-B Natriuret Pep Total Protein Albumin Triglycerides Arterial Blood Glucose Ur Specific [place] Coronavirus (PCR) 03/25/21 03/25/21 03/25/21 12:26 12:35 23:53 WBC RBC Hgb Hct MCV MCHC RDW Plt Count Lymph % (Auto) [place] % (Auto) [place] # (Auto) Seg Neutrophils % Seg Neuts % (Manual) Lymphocytes % (Manual) Monocytes % (Manual) Nucleated RBC % Seg Neutrophils # Seg Neutrophils # Man Lymphocytes # (Manual) Monocytes # (Manual) PT INR D-Dimer ABG pH POC ABG pCO2 POC ABG pO2 ABG pO2 100.5 H ABG HCO3 33.6 H ABG O2 Saturation ABG Base Excess 6.4 H ABG Hemoglobin 12.0 L ABG Oxyhemoglobin ABG Sodium ABG Potassium ABG Glucose Oxyhemoglobin Sodium Potassium Chloride Carbon Dioxide BUN Creatinine Glucose POC Glucose 108 H 137 H Lactic Acid Phosphorus Magnesium Ferritin Lactate Dehydrogenase C-Reactive Protein NT-Pro-B Natriuret Pep Total Protein Albumin Triglycerides Arterial Blood Glucose Ur Specific [place] Coronavirus (PCR) 03/26/21 03/26/21 03/26/21 05:14 07:09 07:09 WBC RBC Hgb Hct MCV MCHC RDW 16.5 H Plt Count 139 L Lymph % (Auto) [place] % (Auto) [place] # (Auto) Seg Neutrophils % Seg Neuts % (Manual) Lymphocytes % (Manual) Monocytes % (Manual) Nucleated RBC % Seg Neutrophils # Seg Neutrophils # Man Lymphocytes # (Manual) Monocytes # (Manual) PT INR D-Dimer ABG pH POC ABG pCO2 POC ABG pO2 ABG pO2 ABG HCO3 ABG O2 Saturation ABG Base Excess ABG Hemoglobin ABG Oxyhemoglobin ABG Sodium ABG Potassium ABG Glucose Oxyhemoglobin Sodium Potassium Chloride Carbon Dioxide BUN 22 H Creatinine 0.7 L Glucose 108 H POC Glucose 116 H Lactic Acid Phosphorus Magnesium Ferritin Lactate Dehydrogenase C-Reactive Protein NT-Pro-B Natriuret Pep Total Protein Albumin Triglycerides Arterial Blood Glucose Ur Specific [place] Coronavirus (PCR) 03/26/21 03/26/21 03/26/21 09:51 11:15 16:59 WBC RBC Hgb Hct MCV MCHC RDW Plt Count Lymph % (Auto) [place] % (Auto) [place] # (Auto) Seg Neutrophils % Seg Neuts % (Manual) Lymphocytes % (Manual) Monocytes % (Manual) Nucleated RBC % Seg Neutrophils # Seg Neutrophils # Man Lymphocytes # (Manual) Monocytes # (Manual) PT INR D-Dimer ABG pH POC ABG pCO2 POC ABG pO2 ABG pO2 ABG HCO3 ABG O2 Saturation ABG Base Excess ABG Hemoglobin ABG Oxyhemoglobin ABG Sodium ABG Potassium ABG Glucose Oxyhemoglobin Sodium Potassium Chloride Carbon Dioxide BUN Creatinine Glucose POC Glucose 107 H 119 H 174 H Lactic Acid Phosphorus Magnesium Ferritin Lactate Dehydrogenase C-Reactive Protein NT-Pro-B Natriuret Pep Total Protein Albumin Triglycerides Arterial Blood Glucose Ur Specific [place] Coronavirus (PCR) 03/26/21 03/27/21 03/27/21 22:18 07:08 10:28 WBC RBC Hgb Hct MCV 95 H MCHC RDW 16.2 H Plt Count 134 L Lymph % (Auto) [place] % (Auto) [place] # (Auto) Seg Neutrophils % Seg Neuts % (Manual) Lymphocytes % (Manual) Monocytes % (Manual) Nucleated RBC % Seg Neutrophils # Seg Neutrophils # Man Lymphocytes # (Manual) Monocytes # (Manual) PT INR D-Dimer ABG pH POC ABG pCO2 POC ABG pO2 ABG pO2 ABG HCO3 ABG O2 Saturation ABG Base Excess ABG Hemoglobin ABG Oxyhemoglobin ABG Sodium ABG Potassium ABG Glucose Oxyhemoglobin Sodium Potassium Chloride Carbon Dioxide BUN Creatinine Glucose POC Glucose 107 H 52 L Lactic Acid Phosphorus Magnesium Ferritin Lactate Dehydrogenase C-Reactive Protein NT-Pro-B Natriuret Pep Total Protein Albumin Triglycerides Arterial Blood Glucose Ur Specific [place] Coronavirus (PCR) 03/27/21 03/27/21 03/27/21 10:28 11:45 17:39 WBC RBC Hgb Hct MCV MCHC RDW Plt Count Lymph % (Auto) [place] % (Auto) [place] # (Auto) Seg Neutrophils % Seg Neuts % (Manual) Lymphocytes % (Manual) Monocytes % (Manual) Nucleated RBC % Seg Neutrophils # Seg Neutrophils # Man Lymphocytes # (Manual) Monocytes # (Manual) PT INR D-Dimer ABG pH POC ABG pCO2 POC ABG pO2 ABG pO2 ABG HCO3 ABG O2 Saturation ABG Base Excess ABG Hemoglobin ABG Oxyhemoglobin ABG Sodium ABG Potassium ABG Glucose Oxyhemoglobin Sodium 136 L Potassium Chloride Carbon Dioxide BUN Creatinine 0.7 L Glucose 150 H POC Glucose 121 H 165 H Lactic Acid Phosphorus Magnesium Ferritin Lactate Dehydrogenase C-Reactive Protein NT-Pro-B Natriuret Pep Total Protein Albumin Triglycerides Arterial Blood Glucose Ur Specific [place] Coronavirus (PCR) 03/28/21 03/28/21 03/28/21 07:14 11:42 18:22 WBC RBC Hgb Hct MCV MCHC RDW 16.4 H Plt Count Lymph % (Auto) [place] % (Auto) [place] # (Auto) Seg Neutrophils % Seg Neuts % (Manual) Lymphocytes % (Manual) Monocytes % (Manual) Nucleated RBC % Seg Neutrophils # Seg Neutrophils # Man Lymphocytes # (Manual) Monocytes # (Manual) PT INR D-Dimer ABG pH POC ABG pCO2 POC ABG pO2 ABG pO2 ABG HCO3 ABG O2 Saturation ABG Base Excess ABG Hemoglobin ABG Oxyhemoglobin ABG Sodium ABG Potassium ABG Glucose Oxyhemoglobin Sodium Potassium Chloride Carbon Dioxide BUN Creatinine Glucose POC Glucose 145 H 169 H Lactic Acid Phosphorus Magnesium Ferritin Lactate Dehydrogenase C-Reactive Protein NT-Pro-B Natriuret Pep Total Protein Albumin Triglycerides Arterial Blood Glucose Ur Specific [place] Coronavirus (PCR) 03/28/21 03/29/21 03/29/21 23:39 04:50 04:50 WBC RBC Hgb 11.0 L Hct 34.9 L MCV MCHC RDW 15.9 H Plt Count Lymph % (Auto) [place] % (Auto) [place] # (Auto) Seg Neutrophils % Seg Neuts % (Manual) Lymphocytes % (Manual) Monocytes % (Manual) Nucleated RBC % Seg Neutrophils # Seg Neutrophils # Man Lymphocytes # (Manual) Monocytes # (Manual) PT INR D-Dimer ABG pH POC ABG pCO2 POC ABG pO2 ABG pO2 ABG HCO3 ABG O2 Saturation ABG Base Excess ABG Hemoglobin ABG Oxyhemoglobin ABG Sodium ABG Potassium ABG Glucose Oxyhemoglobin Sodium Potassium Chloride Carbon Dioxide 34 H BUN Creatinine 0.6 L Glucose 152 H POC Glucose 139 H Lactic Acid Phosphorus Magnesium Ferritin Lactate Dehydrogenase C-Reactive Protein NT-Pro-B Natriuret Pep Total Protein Albumin Triglycerides Arterial Blood Glucose Ur Specific [place] Coronavirus (PCR) 03/29/21 03/29/21 03/29/21 05:25 11:34 18:02 WBC RBC Hgb Hct MCV MCHC RDW Plt Count Lymph % (Auto) [place] % (Auto) [place] # (Auto) Seg Neutrophils % Seg Neuts % (Manual) Lymphocytes % (Manual) Monocytes % (Manual) Nucleated RBC % Seg Neutrophils # Seg Neutrophils # Man Lymphocytes # (Manual) Monocytes # (Manual) PT INR D-Dimer ABG pH POC ABG pCO2 POC ABG pO2 ABG pO2 ABG HCO3 ABG O2 Saturation ABG Base Excess ABG Hemoglobin ABG Oxyhemoglobin ABG Sodium ABG Potassium ABG Glucose Oxyhemoglobin Sodium Potassium Chloride Carbon Dioxide BUN Creatinine Glucose POC Glucose 127 H 169 H 173 H Lactic Acid Phosphorus Magnesium Ferritin Lactate Dehydrogenase C-Reactive Protein NT-Pro-B Natriuret Pep Total Protein Albumin Triglycerides Arterial Blood Glucose Ur Specific [place] Coronavirus (PCR) 03/29/21 03/30/21 03/30/21 21:42 00:01 05:36 WBC RBC Hgb Hct MCV MCHC RDW 16.7 H Plt Count Lymph % (Auto) [place] % (Auto) [place] # (Auto) Seg Neutrophils % Seg Neuts % (Manual) Lymphocytes % (Manual) Monocytes % (Manual) Nucleated RBC % Seg Neutrophils # Seg Neutrophils # Man Lymphocytes # (Manual) Monocytes # (Manual) PT INR D-Dimer ABG pH POC ABG pCO2 POC ABG pO2 ABG pO2 ABG HCO3 ABG O2 Saturation ABG Base Excess ABG Hemoglobin ABG Oxyhemoglobin ABG Sodium ABG Potassium ABG Glucose Oxyhemoglobin Sodium Potassium Chloride Carbon Dioxide BUN Creatinine Glucose POC Glucose 184 H 161 H Lactic Acid Phosphorus Magnesium Ferritin Lactate Dehydrogenase C-Reactive Protein NT-Pro-B Natriuret Pep Total Protein Albumin Triglycerides Arterial Blood Glucose Ur Specific [place] Coronavirus (PCR) 03/30/21 03/30/21 03/30/21 05:36 06:03 11:32 WBC RBC Hgb Hct MCV MCHC RDW Plt Count Lymph % (Auto) [place] % (Auto) [place] # (Auto) Seg Neutrophils % Seg Neuts % (Manual) Lymphocytes % (Manual) Monocytes % (Manual) Nucleated RBC % Seg Neutrophils # Seg Neutrophils # Man Lymphocytes # (Manual) Monocytes # (Manual) PT INR D-Dimer ABG pH POC ABG pCO2 POC ABG pO2 ABG pO2 ABG HCO3 ABG O2 Saturation ABG Base Excess ABG Hemoglobin ABG Oxyhemoglobin ABG Sodium ABG Potassium ABG Glucose Oxyhemoglobin Sodium Potassium Chloride Carbon Dioxide BUN Creatinine 0.5 L Glucose 127 H POC Glucose 130 H 183 H Lactic Acid Phosphorus Magnesium Ferritin Lactate Dehydrogenase C-Reactive Protein NT-Pro-B Natriuret Pep Total Protein Albumin Triglycerides Arterial Blood Glucose Ur Specific [place] Coronavirus (PCR) 03/30/21 03/30/21 03/30/21 15:00 16:23 21:07 WBC RBC Hgb Hct MCV MCHC RDW Plt Count Lymph % (Auto) [place] % (Auto) [place] # (Auto) Seg Neutrophils % Seg Neuts % (Manual) Lymphocytes % (Manual) Monocytes % (Manual) Nucleated RBC % Seg Neutrophils # Seg Neutrophils # Man Lymphocytes # (Manual) Monocytes # (Manual) PT INR D-Dimer ABG pH POC ABG pCO2 POC ABG pO2 ABG pO2 67.2 L ABG HCO3 34.9 H ABG O2 Saturation ABG Base Excess 9.1 H ABG Hemoglobin 11.6 L ABG Oxyhemoglobin ABG Sodium ABG Potassium ABG Glucose Oxyhemoglobin 93.0 L Sodium Potassium Chloride Carbon Dioxide BUN Creatinine Glucose POC Glucose 162 H 146 H Lactic Acid Phosphorus Magnesium Ferritin Lactate Dehydrogenase C-Reactive Protein NT-Pro-B Natriuret Pep Total Protein Albumin Triglycerides Arterial Blood Glucose Ur Specific [place] Coronavirus (PCR) 03/30/21 03/31/21 03/31/21 23:23 05:44 11:19 WBC RBC Hgb Hct MCV MCHC RDW Plt Count Lymph % (Auto) [place] % (Auto) [place] # (Auto) Seg Neutrophils % Seg Neuts % (Manual) Lymphocytes % (Manual) Monocytes % (Manual) Nucleated RBC % Seg Neutrophils # Seg Neutrophils # Man Lymphocytes # (Manual) Monocytes # (Manual) PT INR D-Dimer ABG pH POC ABG pCO2 POC ABG pO2 ABG pO2 ABG HCO3 ABG O2 Saturation ABG Base Excess ABG Hemoglobin ABG Oxyhemoglobin ABG Sodium ABG Potassium ABG Glucose Oxyhemoglobin Sodium Potassium Chloride Carbon Dioxide BUN Creatinine Glucose POC Glucose 138 H 180 H 178 H Lactic Acid Phosphorus Magnesium Ferritin Lactate Dehydrogenase C-Reactive Protein NT-Pro-B Natriuret Pep Total Protein Albumin Triglycerides Arterial Blood Glucose Ur Specific [place] Coronavirus (PCR) 03/31/21 12:50 WBC RBC Hgb Hct MCV MCHC RDW Plt Count Lymph % (Auto) [place] % (Auto) [place] # (Auto) Seg Neutrophils % Seg Neuts % (Manual) Lymphocytes % (Manual) Monocytes % (Manual) Nucleated RBC % Seg Neutrophils # Seg Neutrophils # Man Lymphocytes # (Manual) Monocytes # (Manual) PT INR D-Dimer ABG pH POC ABG pCO2 POC ABG pO2 ABG pO2 99.4 H ABG HCO3 34.9 H ABG O2 Saturation ABG Base Excess 8.4 H ABG Hemoglobin 11.8 L ABG Oxyhemoglobin ABG Sodium ABG Potassium ABG Glucose Oxyhemoglobin Sodium Potassium Chloride Carbon Dioxide BUN Creatinine Glucose POC Glucose Lactic Acid Phosphorus Magnesium Ferritin Lactate Dehydrogenase C-Reactive Protein NT-Pro-B Natriuret Pep Total Protein Albumin Triglycerides Arterial Blood Glucose Ur Specific [place] Coronavirus (PCR) Chest x-ray: pending Allied health notes reviewed: nursing
[2021-03-31 14:14] LABS: Basophils % (Auto) 0.5 % (0.0-1.8); Eosinophils # (Auto) 0.3 K/mm3 (0.0-0.4); Eosinophils % (Auto) 4.1 % (0.0-4.3); Hematocrit 35.1 % (35.5-45.6); Hemoglobin 11.3 gm/dl (11.8-15.2); Lymphocytes # (Auto) 0.6 K/mm3 (1.2-5.4); Lymphocytes % (Auto) 7.6 % (13.4-35.0); Mean Corpuscular HGB Conc 32 % (32-34); Mean Corpuscular Volume 93 fl (84-94); Monocytes # (Auto) 0.7 K/mm3 (0.0-0.8); Monocytes % (Auto) 9.5 % (0.0-7.3); Platelet Count 189 K/mm3 (140-440); Red Blood Count 3.77 M/mm3 (3.65-5.03); Red Cell Distribution Width 16.5 % (13.2-15.2)
--- NOTE | 2021-03-31 14:23 | Progress Note ---
Assessment and Plan Cultures: SARS CoV2 PCR: positive 03/08/2021 blood culture: no growth 03/10/2021 sputum culture: Usual respiratory marlyn 03/16/2021 blood culture: In process 03/18/2021 sputum culture: Stenotrophomonas A/P: 61-year-old male with diabetes, hypertension admitted to the hospital with complaints of shortness of breath and feeling weak for the last 1 week: #Sepsis secondary to bilateral pneumonia: secondary to COVID-19. Elevated inflammatory markers. WBC 22.6, creatinine 1.3, ferritin 877, CRP 18.0, LDH 624, procalcitonin 0.18. D-dimer >10k. CTA negative for pulmonary embolism, severe patchy groundglass opacities. #New fever: probably COVID related. #Acute hypoxic respiratory failure: initially required BiPAP, now intubated, on the vent. #DM #HTN Recs: -Completed Bactrim for Stenotrophomonas -Given fevers started cefepime. -Check new procalcitonin, CXR -Follow up new sputum cultures -completed IV remdesivir -s/p Actemra 03/10/2021 -prophylactic anticoagulation based on d-dimer per hospital protocol -s/p trach/PEG Nayan Goins MD [facility] O: [phone] F: [phone] Subjective Date of service: 03/31/21 Principal diagnosis: COVID-19 infection; DM II; Bilateral pneumonia; Obesity; HTN Interval history: Febrile to 101 with a white count 7.4. Objective - Exam Narrative Exam: Physical exam deferred to reduce risk of transmission of COVID-19. Please refer to primary team's note. - Constitutional Vitals: Vital Signs Temp Pulse Resp BP Pulse Ox 100.0 F H 101 H 18 113/73 97 03/31/21 11:35 03/31/21 13:00 03/31/21 13:00 03/31/21 13:00 03/31/21 13:00 Temperature -Last 24 Hours Temperature 100.0 F Temperature 101 F Temperature 100.9 F Temperature 99.2 F Temperature 99.7 F Temperature 99.8 F Temperature 99.9 F - Labs CBC & Chem 7: 03/31/21 13:30 03/30/21 05:36 Labs: Abnormal lab results 03/30/21 03/30/21 03/30/21 Range/Units 15:00 16:23 21:07 Hgb (11.8-15.2) gm/dl Hct (35.5-45.6) % RDW (13.2-15.2) % Lymph % (Auto) (13.4-35.0) % [place] % (Auto) (0.0-7.3) % Lymph # (Auto) (1.2-5.4) K/mm3 Seg Neutrophils % (40.0-70.0) % ABG pO2 67.2 L (80.0-90.0) mm Hg ABG HCO3 34.9 H (20.0-26.0) mmol/L ABG Base Excess 9.1 H (-2.0-3.0) mmol/L ABG Hemoglobin 11.6 L (14.0-18.0) gm/dl Oxyhemoglobin 93.0 L (95.0-99.0) % POC Glucose 162 H 146 H (70-105) mg/dL 03/30/21 03/31/21 03/31/21 Range/Units 23:23 05:44 11:19 Hgb (11.8-15.2) gm/dl Hct (35.5-45.6) % RDW (13.2-15.2) % Lymph % (Auto) (13.4-35.0) % [place] % (Auto) (0.0-7.3) % Lymph # (Auto) (1.2-5.4) K/mm3 Seg Neutrophils % (40.0-70.0) % ABG pO2 (80.0-90.0) mm Hg ABG HCO3 (20.0-26.0) mmol/L ABG Base Excess (-2.0-3.0) mmol/L ABG Hemoglobin (14.0-18.0) gm/dl Oxyhemoglobin (95.0-99.0) % POC Glucose 138 H 180 H 178 H (70-105) mg/dL 03/31/21 03/31/21 Range/Units 12:50 13:30 Hgb 11.3 L (11.8-15.2) gm/dl Hct 35.1 L (35.5-45.6) % RDW 16.5 H (13.2-15.2) % Lymph % (Auto) 7.6 L (13.4-35.0) % [place] % (Auto) 9.5 H (0.0-7.3) % Lymph # (Auto) 0.6 L (1.2-5.4) K/mm3 Seg Neutrophils % 78.3 H (40.0-70.0) % ABG pO2 99.4 H (80.0-90.0) mm Hg ABG HCO3 34.9 H (20.0-26.0) mmol/L ABG Base Excess 8.4 H (-2.0-3.0) mmol/L ABG Hemoglobin 11.8 L (14.0-18.0) gm/dl Oxyhemoglobin (95.0-99.0) % POC Glucose (70-105) mg/dL
[2021-03-31] MEDS: CEFEPIME/NS 2 GM/100 ML 2 GM/100 ML BAG IV SCH ×2 (14:59→22:01)
[2021-03-31] MEDS: fentaNYL 75 MCG/HR PATCH 72HR TD SCH (16:12)
[2021-03-31] MEDS: fentaNYL 100 MCG/2 ML INJ IV PRN ×2 (18:15→21:33)
[2021-03-31] MEDS: PE/MO/PET,WH 10 APPLIC/28 GM TUBE PR PRN (18:20)
[2021-03-31] MEDS: INSULIN GLARGINE 100 UNITS/ML SUB-Q SCH (21:33)
[2021-04-01] MEDS: chlordiazePOXIDE 25 MG CAP PO SCH ×4 (00:53→17:46)
[2021-04-01] MEDS: ACETAMINOPHEN 325 MG TAB PO PRN (00:53)
[2021-04-01] MEDS: hydrALAZINE 25 MG TAB PO SCH ×3 (06:21→21:34)
[2021-04-01] MEDS: CEFEPIME/NS 2 GM/100 ML 2 GM/100 ML BAG IV SCH ×3 (06:24→22:26)
[2021-04-01] MEDS: ARFORMOTEROL 15 MCG/2 ML NEBU IH SCH ×2 (07:46→20:59)
[2021-04-01 08:03] LABS: Blood Urea Nitrogen 15 mg/dL (9-20); Calcium 8.3 mg/dL (8.4-10.2); Hemolysis Index 1
[2021-04-01 08:06] LABS: Hematocrit 31.6 % (35.5-45.6); Hemoglobin 10.5 gm/dl (11.8-15.2); Mean Corpuscular HGB Conc 33 % (32-34); Mean Corpuscular Volume 93 fl (84-94); Platelet Count 216 K/mm3 (140-440); Red Blood Count 3.39 M/mm3 (3.65-5.03); Red Cell Distribution Width 16.1 % (13.2-15.2)
[2021-04-01] MEDS: fentaNYL 100 MCG/2 ML INJ IV PRN (08:38)
[2021-04-01] MEDS: INSULIN LISPRO 100 UNIT/ML SUB-Q SCH ×3 (08:39→17:46)
[2021-04-01 08:44] LABS: BUN/Creatinine Ratio 25
[2021-04-01] MEDS: BUDESONIDE 0.25 MG/2 ML NEBU IH SCH ×2 (09:14→21:00)
[2021-04-01] MEDS: FUROSEMIDE 20 MG/2 ML INJ IV SCH (09:33)
[2021-04-01] MEDS: fentaNYL DRIP Premix 2,000 MCG/100 ML BAG IV SCH ×2 (09:33→21:31)
[2021-04-01] MEDS: amLODIPine 5 MG TAB PO SCH (09:36)
[2021-04-01] MEDS: ENOXAPARIN 30 MG/0.3 ML INJ SUB-Q SCH ×2 (09:36→21:32)
[2021-04-01] MEDS: ZINC SULFATE 220 MG CAP PO SCH ×2 (09:36→21:34)
[2021-04-01] MEDS: DOXAZOSIN 1 MG TAB PO SCH (09:36)
[2021-04-01] MEDS: predniSONE 10 MG TAB PO SCH (09:36)
[2021-04-01] MEDS: SENNOSIDES/DOCUSATE SODIUM 8.6/50 MG TAB FEEDTUBE SCH ×2 (09:36→21:34)
[2021-04-01] MEDS: QUEtiapine 100 MG TAB PO SCH ×2 (09:36→21:33)
[2021-04-01] MEDS: ASCORBIC ACID 500 MG TAB PO SCH ×2 (09:37→21:34)
[2021-04-01] MEDS: METOPROLOL TARTRATE 25 MG TAB PO SCH ×2 (09:37→21:33)
[2021-04-01] MEDS: FAMOTIDINE 20 MG TAB FEEDTUBE SCH ×2 (09:38→21:34)
--- NOTE | 2021-04-01 11:15 | Progress Note ---
<DEBBY ELLISON - Last Filed: 04/01/21 19:15> Assessment and Plan Assessment and plan: This is a 61-year-old male with past medical history of HTN and DM admitted for sepsis and acute hypoxic respiratory failure 2/2 COVID pneumonia requiring ventilatory support. Hospital Course to Date: 03/09: The patient was seen and evaluated today, and he was found to be hemodynamically stable. The patient is currently on BiPAP for possible COVID-19 pneumonia. He was started on Lovenox 1mg/kg for DVT ppx in the setting of d- dimer > 10,000. Infectious Disease was consulted. The patient is pending a TTE. 03/10: No acute events overnight, patient was intubated in the afternoon transferred to ICU 03/11: Patient started on Lantus, free water flushes increased, propofol drip resumed and oral antihypertensive added. 03/12: lantus increased, k at 5, will monitor. I updated his family and his stated that he is not vaccinated. He does have HTN and she will call the RN to update home medications. She did say he takes bystolic and amlopine. She inquired about ventilator and lab work. She had no further questions. 03/13: KVNG overnight. Patient remains hyperglycemic, basal insulin adjusted and increased to Q12hrs. Patient is overall net positive since admit X1 dose of IV lasix, repeat BMP this afternoon. 03/14: Failed SAT this am due to increase agitation, tachycardia and hypertension. Remains on propofol and fentanyl gtt. Hyperkalemia treated with PO kayaxalate. Patient responded to IV lasix yesterday additional dose again today for a net negative balance. Repeat BMP this afternoon. Insulin adjusted for hyperglycemia. 03/15: Remains encephalopathic, not following commansd. Orders placed for CT head/Brain and Neuro consulted. Rectal bleeding subsided, most likely due to hemorrhoids. H&H is stable will continue to monitor. Kayaxexalate for high K, repeat labs 4 to 6hrs post treatment. 03/16: Still agiated this am, CT head with no acute Abn. CXR and ABG noted- evolving pna and worsening hypoxia, now with low grade fevers. Sputum culture ordered, IV Abx added, ID on cosult. 03/17: This am ABG noted, hypoxia improved. Continue to wean FiO2 as tolerated. Still with low grade fevers, on IV Abx per ID. Still with periods of confusion despite sedation, seroquel increased. F/u CXR in the am 03/18: still very agitated especially when off sedation, with hypertension and tachycardia. Continue sedation for RASS -2, PRN antihypertensive for SPB greater than 160. This febrile this am, continue current IV abx per ID 03/19: Patient afebrile overnight, continue IV Abx per ID. ABG also improved this am, continue to wean FIO2 as tolerated. PRN antihypertensive for hypertension. 03/20: Hyperkalemia treated with Kayexalate, Good discontinued, vancomycin and cefepime stopped started Bactrim by ID. Steroid taper started. 03/21: BB started for hypertension, Seroquel increased for agitation and Librium started no acute events reported overnight. [facility] made vent changes 03/22: Adjustment to anxiolytics, respiratory rate on ventilator per [facility]. Patient noted to have bleeding hemorrhoids with clot, requested RN to remove bowel management system and will order Preparation H. 03/23: Given no confirmed DVT or PE (only superficial thrombus noted on Dopplers) therapeutic Lovenox changed to prophylactic Lovenox. Started on doxazosin to help with retention. Consulted surgery for tracheostomy and propofol discontinued. 03/24: Surgery consult completed, patient changed to prophylaxis anticoagulation, started on doxazosin yesterday with plans to remove Good catheter in 48 hours. Patient with slight hypokalemia today and given Kayexalate. No acute events reported overnight. 03/25: No acute events reported overnight. Patient remains on fentanyl drip and on CPAP trial this morning. 03/26: no acute events reported overnight. placed on CPAP this AM, remains on fent/librium. scheduled for trach/peg this week. 03/27: Hypoglycemic this am, will decreased lantus to Qhs. Plan for possible Trach and Peg by Gen Surg this am. Case management to arrange possible LTAC placement 03/28: KVNG overnight. Tolerating PST this am. Plan for trach and PEG tomorrow by Gen. Surgery, NPO after midnight. 03/29: No significant changes overnight. Plan for trach and Peg today. Case management to arrange possible LTAC placement 03/30. S/p Trach and PEG, no complications noted. High residual yesterday despite NPO status, reglan added X2 days. Per RN no residual this am, patient is tolerating TF. Continue to advance TF as tolerated. Norvasc added for hypertension. Pitting edema also appreciated, some diuretic might be beneficial, will d/w CCM. Continue daily PST as tolerated. 03/31: Patient remains on the vent still on fentanyl gtt with periods of agitation. PRN analgesia added, plan to start weaning off fentanyl gtt. Febrile this am, completed IV abx course. Will panculture for now, ID is also following. 04/01: Still febrile overnight, cultures result pending, continue IV ABx per ID. Failed PST this am. Continue daily PST and vent wean per CCM. Case management to arrange possible placement. Assessment and Plan #Acute Hypoxic Respiratory Failure #COVID Pneumonia - Intubated on 03/10 due to worsen hypoxia on BIPAP - 2/2 s/p Tracheostomy - Vent setting:PRVC-35%,8,12,450 - No ABG this am - CCM consulted, appreciate recommendations - Continue IV Steroids and Nebs per CCM - keep patient net negative for better lung compliance - VAP bundle addressed - Aspiration precaution HOB above 30 - Daily SBT and SAT trials as tolerated - Daily ABG and CXR - Continue SPO2 monitoring for SPO2 goal above 92% #Sepsis #COVID Pneumonia #Leukocytosis #Lactic Acidosis- Resolved - COVID PCR positive - UA neg, Blood cultures and Sputum culture NGTD - repeat Bculture NGTD, 03/17 Sputum Cult + Stenotrophomonas - Infectious disease consulted, appreciate recommendation - S/p Actemra 03/10/2021 - Completed X5days course of IV remdesivir - Completed IV Abx course - Monitor WBC and temperature curve - Trend CBC #Neuro:Acute Encephalopathy - Intubated and sedated on fentanyl RASS -2 - CT head/brain no acute Abn. - On Seroquel and Librium - Avoid benzodiazepine to reduce the possibility of delirium - Prn analgesia for CPOT greater than 3 - Maintenance of sleep-wake cycle - Neurology on consult #CV: Hypertension - High BP overnight - 03/09 Echocardiogram shows a mildly dilated ascending aorta, normal LV systolic function, mild concentric LVH, LVEF 60 to 65% - Continue current antihypertensive regimen - Norvasc added for better control - PRN Labetalol for SBP above 160 - Continue Blood pressure monitoring per protocol #Hyponatremia-resolved - Strict intake and output - Avoid nephrotoxic medications; Renally dose medications - Good in place - Monitor and replace electrolytes as needed -Trend BMP #Elevated D-dimer - Most likely due to COVID - Bilateral lower extremity ultrasounds negative for DVT, superficial thrombus in left gastrocnemius vein - CTA chest shows no gross pulm embolism - H&H stable - Continue AC- Lovenox SubQ - SCDs to BLE while in bed - Transfuse hemoglobin less than 7 - Monitor for signs of bleeding #Endo:Type 2 DM - Hypoglycemic this am - Continue high dose SSI Q6hrs - Lantus qHs - Avoid Hypoglycemia The high probability of a clinically significant, sudden or life threatening deterioration of the [Respiratory] system(s) required my full and direct attention, intervention and personal management. The aggregate critical care time was [60] minutes. This time is in addition to time spent performing reported procedures but includes the following: [x] Data Review and interpretation [x] Patient assessment and monitoring of vital signs [x] Documentation [x] Medication orders and management Disposition Plan: ICU Total Time Spent with Patient (Minutes): 60 History Interval history: Patient seen and examined at the bedside. Remains on the vent and on fentanyl gtt. Patient failed PST this am due tachypnea and tachycardia. Remains febrile overnight Hospitalist Physical - Constitutional Vitals: Temp Pulse Resp BP Pulse Ox 99.6 F 110 H 32 H 120/62 95 04/01/21 08:00 04/01/21 11:09 04/01/21 10:15 04/01/21 11:09 04/01/21 11:09 General appearance: Present: no acute distress, well-nourished, obese, other (On the vent, on sedation) - EENT Eyes: Present: PERRL - Respiratory Respiratory effort: labored, accessory muscle use Respiratory: bilateral: rhonchi - Cardiovascular Rhythm: regular Heart Sounds: Present: S1 & S2 - Extremities Extremities: no ischemia, pulses intact Extremity abnormal: edema - Peripheral Assessment Generalized Edema Type: Non-pitting Edema Degree: 2+ Capillary Refill: < 3 seconds Skin Temperature: Warm Peripheral Pulses: within normal limits - Abdominal General gastrointestinal: soft, non-distended, normal bowel sounds - Integumentary Integumentary: Present: warm, dry - Psychiatric Psychiatric: other (On the vent, on sedation) - Neurologic Neurologic: other (On the vent, on sedation) - Allied Health Allied health notes reviewed: nursing, case management Results - Labs CBC & Chem 7: 04/01/21 07:16 04/01/21 07:16 Labs: Laboratory Last Values WBC 7.9 K/mm3 (4.5-11.0) 04/01/21 07:16 RBC 3.39 M/mm3 (3.65-5.03) L 04/01/21 07:16 Hgb 10.5 gm/dl (11.8-15.2) L 04/01/21 07:16 Hct 31.6 % (35.5-45.6) L 04/01/21 07:16 MCV 93 fl (84-94) 04/01/21 07:16 MCH 31 pg (28-32) 04/01/21 07:16 MCHC 33 % (32-34) 04/01/21 07:16 RDW 16.1 % (13.2-15.2) H 04/01/21 07:16 Plt Count 216 K/mm3 (140-440) 04/01/21 07:16 Lymph % (Auto) 7.6 % (13.4-35.0) L 03/31/21 13:30 [place] % (Auto) 9.5 % (0.0-7.3) H 03/31/21 13:30 Eos % (Auto) 4.1 % (0.0-4.3) 03/31/21 13:30 Baso % (Auto) 0.5 % (0.0-1.8) 03/31/21 13:30 Lymph # (Auto) 0.6 K/mm3 (1.2-5.4) L 03/31/21 13:30 [place] # (Auto) 0.7 K/mm3 (0.0-0.8) 03/31/21 13:30 Eos # (Auto) 0.3 K/mm3 (0.0-0.4) 03/31/21 13:30 Baso # (Auto) 0.0 K/mm3 (0.0-0.1) 03/31/21 13:30 Add Manual Diff Complete 03/10/21 04:29 Total Counted 100 03/10/21 04:29 Seg Neutrophils % 78.3 % (40.0-70.0) H 03/31/21 13:30 Seg Neuts % (Manual) 94.0 % (40.0-70.0) H 03/10/21 04:29 Band Neutrophils % 0 % 03/10/21 04:29 Lymphocytes % (Manual) 1.0 % (13.4-35.0) L 03/10/21 04:29 Reactive Lymphs % (Man) 0 % 03/10/21 04:29 Monocytes % (Manual) 5.0 % (0.0-7.3) 03/10/21 04:29 Eosinophils % (Manual) 0 % (0.0-4.3) 03/10/21 04:29 Basophils % (Manual) 0 % (0.0-1.8) 03/10/21 04:29 Metamyelocytes % 0 % 03/10/21 04:29 Myelocytes % 0 % 03/10/21 04:29 Promyelocytes % 0 % 03/10/21 04:29 Blast Cells % 0 % 03/10/21 04:29 Nucleated RBC % 3.0 % (0.0-0.9) H 03/10/21 04:29 Seg Neutrophils # 5.8 K/mm3 (1.8-7.7) 03/31/21 13:30 Seg Neutrophils # Man 19.4 K/mm3 (1.8-7.7) H 03/10/21 04:29 Band Neutrophils # 0.0 K/mm3 03/10/21 04:29 Lymphocytes # (Manual) 0.2 K/mm3 (1.2-5.4) L 03/10/21 04:29 Abs React Lymphs (Man) 0.0 K/mm3 03/10/21 04:29 Monocytes # (Manual) 1.0 K/mm3 (0.0-0.8) H 03/10/21 04:29 Eosinophils # (Manual) 0.0 K/mm3 (0.0-0.4) 03/10/21 04:29 Basophils # (Manual) 0.0 K/mm3 (0.0-0.1) 03/10/21 04:29 Metamyelocytes # 0.0 K/mm3 03/10/21 04:29 Myelocytes # 0.0 K/mm3 03/10/21 04:29 Promyelocytes # 0.0 K/mm3 03/10/21 04:29 Blast Cells # 0.0 K/mm3 03/10/21 04:29 WBC Morphology Not Reportable 03/10/21 04:29 Hypersegmented Neuts Not Reportable 03/10/21 04:29 Hyposegmented Neuts Not Reportable 03/10/21 04:29 Hypogranular Neuts Not Reportable 03/10/21 04:29 Smudge Cells Not Reportable 03/10/21 04:29 Toxic Granulation Not Reportable 03/10/21 04:29 Toxic Vacuolation Not Reportable 03/10/21 04:29 Dohle Bodies Not Reportable 03/10/21 04:29 Pelger-Huet Anomaly Not Reportable 03/10/21 04:29 Mely Rods Not Reportable 03/10/21 04:29 Platelet Estimate Consistent w auto 03/10/21 04:29 Clumped Platelets Not Reportable 03/10/21 04:29 Plt Clumps, EDTA Not Reportable 03/10/21 04:29 Large Platelets Not Reportable 03/10/21 04:29 Giant Platelets Not Reportable 03/10/21 04:29 Platelet Satelliting Not Reportable 03/10/21 04:29 Plt Morphology Comment Not Reportable 03/10/21 04:29 RBC Morphology Normal 03/10/21 04:29 Dimorphic RBCs Not Reportable 03/10/21 04:29 Polychromasia Not Reportable 03/10/21 04:29 Hypochromasia Not Reportable 03/10/21 04:29 Poikilocytosis Not Reportable 03/10/21 04:29 Anisocytosis Not Reportable 03/10/21 04:29 Microcytosis Not Reportable 03/10/21 04:29 Macrocytosis Not Reportable 03/10/21 04:29 Spherocytes Not Reportable 03/10/21 04:29 Pappenheimer Bodies Not Reportable 03/10/21 04:29 Sickle Cells Not Reportable 03/10/21 04:29 Target Cells Not Reportable 03/10/21 04:29 Tear Drop Cells Not Reportable 03/10/21 04:29 Ovalocytes Not Reportable 03/10/21 04:29 Helmet Cells Not Reportable 03/10/21 04:29 [place] Bodies Not Reportable 03/10/21 04:29 Blanchard Rings Not Reportable 03/10/21 04:29 Shama Cells Not Reportable 03/10/21 04:29 Bite Cells Not Reportable 03/10/21 04:29 Crenated Cell Not Reportable 03/10/21 04:29 Elliptocytes Not Reportable 03/10/21 04:29 Acanthocytes (Spur) Not Reportable 03/10/21 04:29 Rouleaux Not Reportable 03/10/21 04:29 Hemoglobin C Crystals Not Reportable 03/10/21 04:29 Schistocytes Not Reportable 03/10/21 04:29 Malaria parasites Not Reportable 03/10/21 04:29 Shaheen Bodies Not Reportable 03/10/21 04:29 Hem Pathologist Commnt No 03/10/21 04:29 PT 13.0 Sec. (12.2-14.9) 03/29/21 04:50 INR 0.88 (0.87-1.13) 03/29/21 04:50 APTT 28.0 Sec. (24.2-36.6) 03/08/21 20:24 D-Dimer 1359.12 ng/mlDDU (0-234) H 03/17/21 04:40 ABG pH 7.397 pH Units (7.350-7.450) 03/31/21 12:50 POC ABG pCO2 71.9 mmHg (32.0-48.0) H 03/12/21 21:54 ABG pCO2 58.1 mm Hg 03/31/21 12:50 POC ABG pO2 53.6 mmHg (83-108) L 03/12/21 21:54 ABG pO2 99.4 mm Hg (80.0-90.0) H 03/31/21 12:50 POC ABG HCO3 30.0 03/12/21 21:54 ABG HCO3 34.9 mmol/L (20.0-26.0) H 03/31/21 12:50 ABG O2 Saturation 97.3 % (95.0-99.0) 03/31/21 12:50 ABG O2 Content 15.9 (0.0-44) 03/31/21 12:50 POC ABG Base Excess 0.5 03/12/21 21:54 ABG Base Excess 8.4 mmol/L (-2.0-3.0) H 03/31/21 12:50 ABG Hemoglobin 11.8 gm/dl (14.0-18.0) L 03/31/21 12:50 ABG Oxyhemoglobin 84.8 (94-98) L 03/12/21 21:54 ABG Carboxyhemoglobin 1.6 % (0.0-5.0) 03/31/21 12:50 ABG Methemoglobin 0.7 % (0.0-1.5) 03/31/21 12:50 ABG Sodium 134.2 mmol/L (136.0-145.0) L 03/12/21 21:54 ABG Potassium 4.9 mmol/L (3.40-4.50) H 03/12/21 21:54 ABG Chloride 99.0 mmol/L (98-107) 03/12/21 21:54 ABG Glucose 306 mg/dL (65-95) H 03/12/21 21:54 Oxyhemoglobin 95.1 % (95.0-99.0) 03/31/21 12:50 Carboxyhemoglobin 0.6 (0.5-1.5) 03/12/21 21:54 FiO2 40 % 03/31/21 12:50 FiO2 % 50.0 03/12/21 21:54 Sodium 137 mmol/L (137-145) 04/01/21 07:16 Potassium 3.9 mmol/L (3.6-5.0) 04/01/21 07:16 Chloride 100.0 mmol/L (98-107) 04/01/21 07:16 Carbon Dioxide 30 mmol/L (22-30) 04/01/21 07:16 Anion Gap 11 mmol/L 04/01/21 07:16 BUN 15 mg/dL (9-20) 04/01/21 07:16 Creatinine 0.6 mg/dL (0.8-1.3) L 04/01/21 07:16 Estimated GFR > 60 ml/min 04/01/21 07:16 BUN/Creatinine Ratio 25 % 04/01/21 07:16 Glucose 131 mg/dL (75-100) H 04/01/21 07:16 POC Glucose 128 mg/dL (70-105) H 04/01/21 05:37 Lactic Acid 1.90 mmol/L (0.7-2.0) 03/08/21 23:51 Calcium 8.3 mg/dL (8.4-10.2) L 04/01/21 07:16 Phosphorus 3.30 mg/dL (2.5-4.5) 04/01/21 07:16 Magnesium 1.90 mg/dL (1.7-2.3) 04/01/21 07:16 Ferritin 976.4 ng/mL (30.0-300.0) H 03/15/21 04:00 Total Bilirubin 0.20 mg/dL (0.1-1.2) 03/12/21 08:03 AST 10 units/L (5-40) 03/12/21 08:03 ALT 16 units/L (7-56) 03/12/21 08:03 Alkaline Phosphatase 77 units/L (35-129) 03/12/21 08:03 Lactate Dehydrogenase 630 units/L (91-180) H 03/15/21 06:06 C-Reactive Protein 0.40 mg/dL (0.00-1.30) 03/17/21 04:40 NT-Pro-B Natriuret Pep 1053 pg/mL (0-900) H 03/08/21 20:24 Total Protein 6.0 g/dL (6.3-8.2) L 03/12/21 08:03 Albumin 2.9 g/dL (3.9-5) L 03/12/21 08:03 Albumin/Globulin Ratio 0.9 % 03/12/21 08:03 Triglycerides 305 mg/dL (2-149) H 03/22/21 07:26 Procalcitonin 0.05 ng/mL (<0.15) 03/17/21 04:40 Arterial Blood Glucose 306 mg/dL (65-95) H 03/12/21 21:54 Arterial Blood Ionized Calcium 5.0 mg/dL (4.6-5.3) 03/12/21 21:54 Urine Color Yellow (Yellow) 03/09/21 04:10 Urine Turbidity Slightly-cloudy (Clear) 03/09/21 04:10 Urine pH 5.0 (5.0-7.0) 03/09/21 04:10 Ur Specific [place] 1.041 (1.003-1.030) H 03/09/21 04:10 Urine Protein 100 mg/dl mg/dL (Negative) 03/09/21 04:10 Urine Glucose (UA) Neg mg/dL (Negative) 03/09/21 04:10 Urine Ketones Neg mg/dL (Negative) 03/09/21 04:10 Urine Blood Mod (Negative) 03/09/21 04:10 Urine Nitrite Neg (Negative) 03/09/21 04:10 Urine Bilirubin Neg (Negative) 03/09/21 04:10 Urine Urobilinogen 2.0 mg/dL (<2.0) 03/09/21 04:10 Ur Leukocyte Esterase Neg (Negative) 03/09/21 04:10 Urine WBC (Auto) 4.0 /HPF (0.0-6.0) 03/09/21 04:10 Urine RBC (Auto) 1.0 /HPF (0.0-6.0) 03/09/21 04:10 Urine Bacteria (Auto) 1+ /HPF (Negative) 03/09/21 04:10 Urine Mucus Few /HPF 03/09/21 04:10 Coronavirus (PCR) Positive (Negative) A 03/09/21 08:00 Miscellaneous Test Flexitest 1 03/16/21 13:14 Microbiology: Microbiology 03/31/21 13:30 Peripheral/Venous Blood Culture - Preliminary Culture in Progress 03/31/21 14:00 Peripheral/Venous Blood Culture - Preliminary Culture in Progress Good/IV: Voiding Method Indwelling Catheter Active Medications - Current Medications Current Medications: Generic Name Dose Route Start Last Admin Trade Name Freq PRN Reason Stop Dose Admin Acetaminophen 650 mg 03/09/21 01:26 04/01/21 00:53 Acetaminophen 325 Mg Tab PO 650 mg Q4H PRN Administration Pain MILD(1-3)/Fever >100.5/RAYO Albuterol 2.5 mg 03/09/21 01:26 03/18/21 21:06 Albuterol 2.5 Mg/3 Ml Nebu IH 2.5 mg Q4HRT PRN Administration Shortness Of Breath Amlodipine Besylate 5 mg 03/30/21 10:00 04/01/21 09:36 Amlodipine 5 Mg Tab PO 5 mg QDAY BLANCA Administration Arformoterol Tartrate 15 mcg 03/11/21 20:00 04/01/21 07:46 Arformoterol 15 Mcg/2 Ml Nebu IH 15 mcg Q12HRT BLANCA Administration Ascorbic Acid 500 mg 03/10/21 14:00 04/01/21 09:37 Ascorbic Acid 500 Mg Tab PO 500 mg BID BLANCA Administration Bisacodyl 10 mg 03/26/21 13:43 03/26/21 13:51 Bisacodyl 10 Mg Rect Supp SD 10 mg QDAY PRN Administration Constipation Budesonide 0.25 mg 03/11/21 20:00 04/01/21 09:14 Budesonide 0.25 Mg/2 Ml Nebu IH Not Given Q12HRT [facility] Chlordiazepoxide HCl 75 mg 03/22/21 18:00 04/01/21 06:22 Chlordiazepoxide 25 Mg Cap PO 75 mg Q6HR [facility] Administration Dextrose 0 ml 03/20/21 10:52 Dextrose 10% *Hypoglycemia IV PRN PRN Hypoglycemia Doxazosin Mesylate 1 mg 03/23/21 14:00 04/01/21 09:36 Doxazosin 1 Mg Tab PO 1 mg QDAY [facility] Administration Enoxaparin Sodium 30 mg 04/01/21 10:00 04/01/21 09:36 Enoxaparin 30 Mg/0.3 Ml Inj SUB-Q 30 mg Q12HR BLANCA Administration Famotidine 20 mg 03/12/21 22:00 04/01/21 09:38 Famotidine 20 Mg Tab FEEDTUBE 20 mg BID BLANCA Administration Fentanyl 1 applic 03/31/21 15:00 03/31/21 16:12 Fentanyl 75 Mcg/Hr Patch 72hr TD 1 applic Q3D BLANCA Administration Fentanyl 50 mcg 03/31/21 14:41 04/01/21 08:38 Fentanyl 100 Mcg/2 Ml Inj IV 50 mcg Q2H PRN Administration ANALGESIA Furosemide 20 mg 03/30/21 18:00 04/01/21 09:33 Furosemide 20 Mg/2 Ml Inj IV 04/04/21 17:59 20 mg QDAY [facility] Administration Hydralazine HCl 50 mg 03/23/21 14:26 04/01/21 06:21 Hydralazine 25 Mg Tab PO 50 mg Q8HR BLANCA Administration Hydrophilic Ointment 1 applic 03/10/21 15:39 Lip Therapy Vaseline TP Q2HR PRN Dry Lips Fentanyl Citrate 2,000 mcg in 100 mls @ 5.897 mls/hr 03/10/21 17:00 04/01/21 09:51 Fentanyl Drip Premix IV 2 mcg/kg/hr TITR BLANCA 11.793 mls/hr Titration Protocol 1 MCG/KG/HR Propofol 1,000 mg in 100 mls @ 3.507 mls/hr 03/11/21 17:00 03/22/21 18:02 Diprivan 10 Mg/Ml IV 0 mcg/kg/min TITR BLANCA 0 mls/hr Titration Protocol 5 MCG/KG/MIN Cefepime HCl 2 gm in 100 mls @ 200 mls/hr 03/31/21 15:00 04/01/21 06:24 Cefepime/Ns 2 Gm/100 Ml IV 200 mls/hr Q8H [facility] Administration Protocol Insulin Glargine 15 units 03/29/21 22:00 03/31/21 21:33 Insulin Glargine 100 Units/Ml SUB-Q 15 units QHS BLANCA Administration Insulin Human Lispro 0 unit 03/11/21 18:00 04/01/21 08:39 Insulin Lispro 100 Unit/Ml SUB-Q Not Given Q6HR [facility] Protocol Labetalol HCl 10 mg 03/12/21 21:13 03/21/21 16:54 Labetalol 20 Mg/4 Ml Inj IV 10 mg Q6H PRN Administration Blood Pressure Metoprolol Tartrate 12.5 mg 03/21/21 22:00 04/01/21 09:37 Metoprolol Tartrate 25 Mg Tab PO 12.5 mg BID BLANCA Administration Midazolam HCl 2 mg 03/15/21 08:49 03/31/21 21:33 Midazolam 2 Mg/2 Ml Inj IV 2 mg Q2H PRN Administration VENT SYNCHRONY Multi-Ingred Cream/Lotion/Oil/Oint 1 applic 03/10/21 15:39 Mineral Oil/Petrolatum, White Ophth Oint 3.5 Gm OU Q4HR PRN Dry Eye(s) Ondansetron HCl 4 mg 03/09/21 01:26 Ondansetron 4 Mg/2 Ml Inj IV Q8H PRN Nausea And Vomiting Oxycodone HCl 5 mg 03/30/21 12:14 03/31/21 07:45 Oxycodone 5 Mg Tab PO 5 mg Q6H PRN Administration Pain, Moderate (4-6) Phenyleph/Shark Oil/Min Oil/Petrol 1 applic 03/22/21 17:35 03/31/21 18:20 Pe/Mo/Pet,Wh 10 Applic/28 Gm Tube SD 1 applic Q6HR PRN Administration Hemorrhoids Prednisone 10 mg 03/29/21 10:00 04/01/21 09:36 Prednisone 10 Mg Tab PO 10 mg DAILY BLANCA Administration Quetiapine Fumarate 300 mg 03/21/21 22:00 04/01/21 09:36 Quetiapine 100 Mg Tab PO 300 mg BID BLANCA Administration Senna/Docusate Sodium 1 tab 03/10/21 22:00 04/01/21 09:36 Sennosides/Docusate Sodium 8.6/50 Mg Tab FEEDTUBE 1 tab BID BLANCA Administration Sodium Chloride 10 ml 03/09/21 10:00 04/01/21 09:36 Sodium Chloride 0.9% 10 Ml Flush Syringe IV 10 ml BID BLANCA Administration Sodium Chloride 10 ml 03/09/21 01:26 Sodium Chloride 0.9% 10 Ml Flush Syringe IV PRN PRN LINE FLUSH Sodium Chloride 10 ml 03/20/21 09:48 Sodium Chloride 0.9% 50 Ml Ivpb IV PRN PRN FLUSH Zinc Sulfate 220 mg 03/10/21 14:00 04/01/21 09:36 Zinc Sulfate 220 Mg Cap PO 220 mg BID BLANCA Administration Nutrition/Malnutrition Assess - Dietary Evaluation Nutrition/Malnutrition Findings: Nutrition Notes Start: 03/09/21 08:49 Freq: Status: Active Protocol: Document 03/31/21 14:51 BRIAN (Rec: 03/31/21 14:52 GALEANN [id number]) Nutrition Notes Initial or Follow up Reassessment Current Diagnosis Diabetes,Sepsis,Hypertension, Respiratory Failure Other Pertinent Diagnosis COVID-19, Bilateral Pneumonia. Current Diet TF-Glucerna 1.2 at 70 ml/hr Labs/Tests Na 140 yesterday Pertinent Medications Lasix, Reglan, Prednisone Height 5 ft 11 in Weight 122 kg [place] Body Weight (kg) 78.18 BMI 37.5 Weight Status Obese Subjective/Other Information Pt remains on vent support. Trach and PEG placed on 2/2. Per RN, pt tolerating TF at goal rate. Percent of energy/protein needs met: 82% energy 78% pro Burn Absent Trauma Absent #1 Nutrition Diagnosis Inadequate oral intake Diagnosis Progress(for reassessment Continues documentation) Is patient on ventilator? Yes Is Patient Ambulatory and/or Out of Bed No REE-([place]-confined to bed) 6119.140 Calculation Used for Recommendations 70-80% energy needs Additional Notes Energy needs: 5362-7580 kcal/ day Pro needs 1.3g/kg adjBW: 130g/ day Fluid needs 1ml/kcal Nutrition Intervention Nutrition Support: Continue Glucerna 1.2 at 70ml/ hr with 110ml water flush q4h. Kcal 2,016 Protein (gm) 101 Carbohydrates (gm) 192 Fat (gm) 101 Fluid (mL) 1,352 Fiber (gm) 27 Goal #1 TF tolerance Goal #2 TF to meet at least 75% energy and pro needs Follow-Up By: 04/07/21 Additional Comments F/U: stable TF, vent status, wt <ARABELLA CASTILLO - Last Filed: 04/02/21 07:20> Assessment and Plan Assessment and plan: I saw and evaluated the patient. I agree with the findings and the plan of care as documented in the Nurse Practitioner's~note, with the following corrections and additions. Hospitalist Physical - Constitutional Vitals: Temp Pulse Resp BP Pulse Ox 97.6 F 114 H 28 H 133/88 90 04/02/21 04:00 04/02/21 07:11 04/02/21 07:00 04/02/21 07:11 04/02/21 07:00 Results - Labs CBC & Chem 7: 04/02/21 04:26 04/02/21 04:26 Labs: Laboratory Last Values WBC 7.0 K/mm3 (4.5-11.0) 04/02/21 04:26 RBC 3.62 M/mm3 (3.65-5.03) L 04/02/21 04:26 Hgb 10.8 gm/dl (11.8-15.2) L 04/02/21 04:26 Hct 33.9 % (35.5-45.6) L 04/02/21 04:26 MCV 94 fl (84-94) 04/02/21 04:26 MCH 30 pg (28-32) 04/02/21 04:26 MCHC 32 % (32-34) 04/02/21 04:26 RDW 16.0 % (13.2-15.2) H 04/02/21 04:26 Plt Count 242 K/mm3 (140-440) 04/02/21 04:26 Lymph % (Auto) 7.6 % (13.4-35.0) L 03/31/21 13:30 [place] % (Auto) 9.5 % (0.0-7.3) H 03/31/21 13:30 Eos % (Auto) 4.1 % (0.0-4.3) 03/31/21 13:30 Baso % (Auto) 0.5 % (0.0-1.8) 03/31/21 13:30 Lymph # (Auto) 0.6 K/mm3 (1.2-5.4) L 03/31/21 13:30 [place] # (Auto) 0.7 K/mm3 (0.0-0.8) 03/31/21 13:30 Eos # (Auto) 0.3 K/mm3 (0.0-0.4) 03/31/21 13:30 Baso # (Auto) 0.0 K/mm3 (0.0-0.1) 03/31/21 13:30 Add Manual Diff Complete 03/10/21 04:29 Total Counted 100 03/10/21 04:29 Seg Neutrophils % 78.3 % (40.0-70.0) H 03/31/21 13:30 Seg Neuts % (Manual) 94.0 % (40.0-70.0) H 03/10/21 04:29 Band Neutrophils % 0 % 03/10/21 04:29 Lymphocytes % (Manual) 1.0 % (13.4-35.0) L 03/10/21 04:29 Reactive Lymphs % (Man) 0 % 03/10/21 04:29 Monocytes % (Manual) 5.0 % (0.0-7.3) 03/10/21 04:29 Eosinophils % (Manual) 0 % (0.0-4.3) 03/10/21 04:29 Basophils % (Manual) 0 % (0.0-1.8) 03/10/21 04:29 Metamyelocytes % 0 % 03/10/21 04:29 Myelocytes % 0 % 03/10/21 04:29 Promyelocytes % 0 % 03/10/21 04:29 Blast Cells % 0 % 03/10/21 04:29 Nucleated RBC % 3.0 % (0.0-0.9) H 03/10/21 04:29 Seg Neutrophils # 5.8 K/mm3 (1.8-7.7) 03/31/21 13:30 Seg Neutrophils # Man 19.4 K/mm3 (1.8-7.7) H 03/10/21 04:29 Band Neutrophils # 0.0 K/mm3 03/10/21 04:29 Lymphocytes # (Manual) 0.2 K/mm3 (1.2-5.4) L 03/10/21 04:29 Abs React Lymphs (Man) 0.0 K/mm3 03/10/21 04:29 Monocytes # (Manual) 1.0 K/mm3 (0.0-0.8) H 03/10/21 04:29 Eosinophils # (Manual) 0.0 K/mm3 (0.0-0.4) 03/10/21 04:29 Basophils # (Manual) 0.0 K/mm3 (0.0-0.1) 03/10/21 04:29 Metamyelocytes # 0.0 K/mm3 03/10/21 04:29 Myelocytes # 0.0 K/mm3 03/10/21 04:29 Promyelocytes # 0.0 K/mm3 03/10/21 04:29 Blast Cells # 0.0 K/mm3 03/10/21 04:29 WBC Morphology Not Reportable 03/10/21 04:29 Hypersegmented Neuts Not Reportable 03/10/21 04:29 Hyposegmented Neuts Not Reportable 03/10/21 04:29 Hypogranular Neuts Not Reportable 03/10/21 04:29 Smudge Cells Not Reportable 03/10/21 04:29 Toxic Granulation Not Reportable 03/10/21 04:29 Toxic Vacuolation Not Reportable 03/10/21 04:29 Dohle Bodies Not Reportable 03/10/21 04:29 Pelger-Huet Anomaly Not Reportable 03/10/21 04:29 Mely Rods Not Reportable 03/10/21 04:29 Platelet Estimate Consistent w auto 03/10/21 04:29 Clumped Platelets Not Reportable 03/10/21 04:29 Plt Clumps, EDTA Not Reportable 03/10/21 04:29 Large Platelets Not Reportable 03/10/21 04:29 Giant Platelets Not Reportable 03/10/21 04:29 Platelet Satelliting Not Reportable 03/10/21 04:29 Plt Morphology Comment Not Reportable 03/10/21 04:29 RBC Morphology Normal 03/10/21 04:29 Dimorphic RBCs Not Reportable 03/10/21 04:29 Polychromasia Not Reportable 03/10/21 04:29 Hypochromasia Not Reportable 03/10/21 04:29 Poikilocytosis Not Reportable 03/10/21 04:29 Anisocytosis Not Reportable 03/10/21 04:29 Microcytosis Not Reportable 03/10/21 04:29 Macrocytosis Not Reportable 03/10/21 04:29 Spherocytes Not Reportable 03/10/21 04:29 Pappenheimer Bodies Not Reportable 03/10/21 04:29 Sickle Cells Not Reportable 03/10/21 04:29 Target Cells Not Reportable 03/10/21 04:29 Tear Drop Cells Not Reportable 03/10/21 04:29 Ovalocytes Not Reportable 03/10/21 04:29 Helmet Cells Not Reportable 03/10/21 04:29 [place] Bodies Not Reportable 03/10/21 04:29 Blanchard Rings Not Reportable 03/10/21 04:29 [place] Cells Not Reportable 03/10/21 04:29 Bite Cells Not Reportable 03/10/21 04:29 Crenated Cell Not Reportable 03/10/21 04:29 Elliptocytes Not Reportable 03/10/21 04:29 Acanthocytes (Spur) Not Reportable 03/10/21 04:29 Rouleaux Not Reportable 03/10/21 04:29 Hemoglobin C Crystals Not Reportable 03/10/21 04:29 Schistocytes Not Reportable 03/10/21 04:29 Malaria parasites Not Reportable 03/10/21 04:29 Shaheen Bodies Not Reportable 03/10/21 04:29 Hem Pathologist Commnt No 03/10/21 04:29 PT 13.0 Sec. (12.2-14.9) 03/29/21 04:50 INR 0.88 (0.87-1.13) 03/29/21 04:50 APTT 28.0 Sec. (24.2-36.6) 03/08/21 20:24 D-Dimer 1359.12 ng/mlDDU (0-234) H 03/17/21 04:40 ABG pH 7.397 pH Units (7.350-7.450) 03/31/21 12:50 POC ABG pCO2 71.9 mmHg (32.0-48.0) H 03/12/21 21:54 ABG pCO2 58.1 mm Hg 03/31/21 12:50 POC ABG pO2 53.6 mmHg (83-108) L 03/12/21 21:54 ABG pO2 99.4 mm Hg (80.0-90.0) H 03/31/21 12:50 POC ABG HCO3 30.0 03/12/21 21:54 ABG HCO3 34.9 mmol/L (20.0-26.0) H 03/31/21 12:50 ABG O2 Saturation 97.3 % (95.0-99.0) 03/31/21 12:50 ABG O2 Content 15.9 (0.0-44) 03/31/21 12:50 POC ABG Base Excess 0.5 03/12/21 21:54 ABG Base Excess 8.4 mmol/L (-2.0-3.0) H 03/31/21 12:50 ABG Hemoglobin 11.8 gm/dl (14.0-18.0) L 03/31/21 12:50 ABG Oxyhemoglobin 84.8 (94-98) L 03/12/21 21:54 ABG Carboxyhemoglobin 1.6 % (0.0-5.0) 03/31/21 12:50 ABG Methemoglobin 0.7 % (0.0-1.5) 03/31/21 12:50 ABG Sodium 134.2 mmol/L (136.0-145.0) L 03/12/21 21:54 ABG Potassium 4.9 mmol/L (3.40-4.50) H 03/12/21 21:54 ABG Chloride 99.0 mmol/L (98-107) 03/12/21 21:54 ABG Glucose 306 mg/dL (65-95) H 03/12/21 21:54 Oxyhemoglobin 95.1 % (95.0-99.0) 03/31/21 12:50 Carboxyhemoglobin 0.6 (0.5-1.5) 03/12/21 21:54 FiO2 40 % 03/31/21 12:50 FiO2 % 50.0 03/12/21 21:54 Sodium 136 mmol/L (137-145) L 04/02/21 04:26 Potassium 4.3 mmol/L (3.6-5.0) 04/02/21 04:26 Chloride 98.6 mmol/L (98-107) 04/02/21 04:26 Carbon Dioxide 30 mmol/L (22-30) 04/02/21 04:26 Anion Gap 12 mmol/L 04/02/21 04:26 BUN 18 mg/dL (9-20) 04/02/21 04:26 Creatinine 0.6 mg/dL (0.8-1.3) L 04/02/21 04:26 Estimated GFR > 60 ml/min 04/02/21 04:26 BUN/Creatinine Ratio 30 % 04/02/21 04:26 Glucose 152 mg/dL (75-100) H 04/02/21 04:26 POC Glucose 151 mg/dL (70-105) H 04/02/21 05:54 Lactic Acid 1.90 mmol/L (0.7-2.0) 03/08/21 23:51 Calcium 8.5 mg/dL (8.4-10.2) 04/02/21 04:26 Phosphorus 3.40 mg/dL (2.5-4.5) 04/02/21 04:26 Magnesium 2.10 mg/dL (1.7-2.3) 04/02/21 04:26 Ferritin 976.4 ng/mL (30.0-300.0) H 03/15/21 04:00 Total Bilirubin 0.20 mg/dL (0.1-1.2) 03/12/21 08:03 AST 10 units/L (5-40) 03/12/21 08:03 ALT 16 units/L (7-56) 03/12/21 08:03 Alkaline Phosphatase 77 units/L (35-129) 03/12/21 08:03 Lactate Dehydrogenase 630 units/L (91-180) H 03/15/21 06:06 C-Reactive Protein 0.40 mg/dL (0.00-1.30) 03/17/21 04:40 NT-Pro-B Natriuret Pep 1053 pg/mL (0-900) H 03/08/21 20:24 Total Protein 6.0 g/dL (6.3-8.2) L 03/12/21 08:03 Albumin 2.9 g/dL (3.9-5) L 03/12/21 08:03 Albumin/Globulin Ratio 0.9 % 03/12/21 08:03 Triglycerides 305 mg/dL (2-149) H 03/22/21 07:26 Procalcitonin 0.05 ng/mL (<0.15) 03/17/21 04:40 Arterial Blood Glucose 306 mg/dL (65-95) H 03/12/21 21:54 Arterial Blood Ionized Calcium 5.0 mg/dL (4.6-5.3) 03/12/21 21:54 Urine Color Yellow (Yellow) 03/09/21 04:10 Urine Turbidity Slightly-cloudy (Clear) 03/09/21 04:10 Urine pH 5.0 (5.0-7.0) 03/09/21 04:10 Ur Specific [place] 1.041 (1.003-1.030) H 03/09/21 04:10 Urine Protein 100 mg/dl mg/dL (Negative) 03/09/21 04:10 Urine Glucose (UA) Neg mg/dL (Negative) 03/09/21 04:10 Urine Ketones Neg mg/dL (Negative) 03/09/21 04:10 Urine Blood Mod (Negative) 03/09/21 04:10 Urine Nitrite Neg (Negative) 03/09/21 04:10 Urine Bilirubin Neg (Negative) 03/09/21 04:10 Urine Urobilinogen 2.0 mg/dL (<2.0) 03/09/21 04:10 Ur Leukocyte Esterase Neg (Negative) 03/09/21 04:10 Urine WBC (Auto) 4.0 /HPF (0.0-6.0) 03/09/21 04:10 Urine RBC (Auto) 1.0 /HPF (0.0-6.0) 03/09/21 04:10 Urine Bacteria (Auto) 1+ /HPF (Negative) 03/09/21 04:10 Urine Mucus Few /HPF 03/09/21 04:10 Coronavirus (PCR) Positive (Negative) A 03/09/21 08:00 Miscellaneous Test Flexitest 1 03/16/21 13:14 Microbiology: Microbiology 03/31/21 13:30 Peripheral/Venous Blood Culture - Preliminary NO GROWTH AFTER 24 HOURS 03/31/21 14:00 Peripheral/Venous Blood Culture - Preliminary NO GROWTH AFTER 24 HOURS 03/31/21 15:55 Tracheal Aspirate Sputum Culture - Preliminary Good/IV: Voiding Method Indwelling Catheter Active Medications - Current Medications Current Medications: Generic Name Dose Route Start Last Admin Trade Name Freq PRN Reason Stop Dose Admin Acetaminophen 650 mg 03/09/21 01:26 04/01/21 00:53 Acetaminophen 325 Mg Tab PO 650 mg Q4H PRN Administration Pain MILD(1-3)/Fever >100.5/RAYO Albuterol 2.5 mg 03/09/21 01:26 03/18/21 21:06 Albuterol 2.5 Mg/3 Ml Nebu IH 2.5 mg Q4HRT PRN Administration Shortness Of Breath Amlodipine Besylate 5 mg 03/30/21 10:00 04/01/21 09:36 Amlodipine 5 Mg Tab PO 5 mg QDAY BLANCA Administration Arformoterol Tartrate 15 mcg 03/11/21 20:00 04/01/21 20:59 Arformoterol 15 Mcg/2 Ml Nebu IH 15 mcg Q12HRT BLANCA Administration Ascorbic Acid 500 mg 03/10/21 14:00 04/01/21 21:34 Ascorbic Acid 500 Mg Tab PO 500 mg BID BLANCA Administration Bisacodyl 10 mg 03/26/21 13:43 03/26/21 13:51 Bisacodyl 10 Mg Rect Supp SD 10 mg QDAY PRN Administration Constipation Budesonide 0.25 mg 03/11/21 20:00 04/01/21 21:00 Budesonide 0.25 Mg/2 Ml Nebu IH Not Given Q12HRT BLANCA Chlordiazepoxide HCl 75 mg 03/22/21 18:00 04/02/21 07:10 Chlordiazepoxide 25 Mg Cap PO 75 mg Q6HR BLANCA Administration Dextrose 0 ml 03/20/21 10:52 Dextrose 10% *Hypoglycemia IV PRN PRN Hypoglycemia Doxazosin Mesylate 1 mg 03/23/21 14:00 04/01/21 09:36 Doxazosin 1 Mg Tab PO 1 mg QDAY BLANCA Administration Enoxaparin Sodium 30 mg 04/01/21 10:00 04/01/21 21:32 Enoxaparin 30 Mg/0.3 Ml Inj SUB-Q 30 mg Q12HR BLANCA Administration Famotidine 20 mg 03/12/21 22:00 04/01/21 21:34 Famotidine 20 Mg Tab FEEDTUBE 20 mg BID BLANCA Administration Fentanyl 1 applic 03/31/21 15:00 03/31/21 16:12 Fentanyl 75 Mcg/Hr Patch 72hr TD 1 applic Q3D BLANCA Administration Fentanyl 50 mcg 03/31/21 14:41 04/01/21 08:38 Fentanyl 100 Mcg/2 Ml Inj IV 50 mcg Q2H PRN Administration ANALGESIA Furosemide 20 mg 03/30/21 18:00 04/01/21 09:33 Furosemide 20 Mg/2 Ml Inj IV 04/04/21 17:59 20 mg QDAY BLANCA Administration Hydralazine HCl 50 mg 03/23/21 14:26 04/02/21 07:11 Hydralazine 25 Mg Tab PO 50 mg Q8HR [facility] Administration Hydrophilic Ointment 1 applic 03/10/21 15:39 Lip Therapy Vaseline TP Q2HR PRN Dry Lips Fentanyl Citrate 2,000 mcg in 100 mls @ 5.897 mls/hr 03/10/21 17:00 04/02/21 04:52 Fentanyl Drip Premix IV 1 mcg/kg/hr TITR BLANCA 5.897 mls/hr Administration Protocol 1 MCG/KG/HR Propofol 1,000 mg in 100 mls @ 3.507 mls/hr 03/11/21 17:00 03/22/21 18:02 Diprivan 10 Mg/Ml IV 0 mcg/kg/min TITR BLANCA 0 mls/hr Titration Protocol 5 MCG/KG/MIN Cefepime HCl 2 gm in 100 mls @ 200 mls/hr 03/31/21 15:00 04/01/21 22:26 Cefepime/Ns 2 Gm/100 Ml IV 200 mls/hr Q8H [facility] Administration Protocol Insulin Glargine 15 units 03/29/21 22:00 04/01/21 21:30 Insulin Glargine 100 Units/Ml SUB-Q 15 units QHS BLANCA Administration Insulin Human Lispro 0 unit 03/11/21 18:00 04/01/21 17:46 Insulin Lispro 100 Unit/Ml SUB-Q 3 unit Q6HR BLANCA Administration Protocol Labetalol HCl 10 mg 03/12/21 21:13 03/21/21 16:54 Labetalol 20 Mg/4 Ml Inj IV 10 mg Q6H PRN Administration Blood Pressure Metoprolol Tartrate 12.5 mg 03/21/21 22:00 04/01/21 21:33 Metoprolol Tartrate 25 Mg Tab PO 12.5 mg BID BLANCA Administration Midazolam HCl 2 mg 03/15/21 08:49 03/31/21 21:33 Midazolam 2 Mg/2 Ml Inj IV 2 mg Q2H PRN Administration VENT SYNCHRONY Multi-Ingred Cream/Lotion/Oil/Oint 1 applic 03/10/21 15:39 Mineral Oil/Petrolatum, White Ophth Oint 3.5 Gm OU Q4HR PRN Dry Eye(s) Ondansetron HCl 4 mg 03/09/21 01:26 Ondansetron 4 Mg/2 Ml Inj IV Q8H PRN Nausea And Vomiting Oxycodone HCl 5 mg 03/30/21 12:14 03/31/21 07:45 Oxycodone 5 Mg Tab PO 5 mg Q6H PRN Administration Pain, Moderate (4-6) Phenyleph/Shark Oil/Min Oil/Petrol 1 applic 03/22/21 17:35 03/31/21 18:20 Pe/Mo/Pet,Wh 10 Applic/28 Gm Tube SD 1 applic Q6HR PRN Administration Hemorrhoids Prednisone 10 mg 03/29/21 10:00 04/01/21 09:36 Prednisone 10 Mg Tab PO 10 mg DAILY BLANCA Administration Quetiapine Fumarate 300 mg 03/21/21 22:00 04/01/21 21:33 Quetiapine 100 Mg Tab PO 300 mg BID BLANCA Administration Senna/Docusate Sodium 1 tab 03/10/21 22:00 04/01/21 21:34 Sennosides/Docusate Sodium 8.6/50 Mg Tab FEEDTUBE 1 tab BID BLANCA Administration Sodium Chloride 10 ml 03/09/21 10:00 04/01/21 09:36 Sodium Chloride 0.9% 10 Ml Flush Syringe IV 10 ml BID BLANCA Administration Sodium Chloride 10 ml 03/09/21 01:26 Sodium Chloride 0.9% 10 Ml Flush Syringe IV PRN PRN LINE FLUSH Sodium Chloride 10 ml 03/20/21 09:48 Sodium Chloride 0.9% 50 Ml Ivpb IV PRN PRN FLUSH Zinc Sulfate 220 mg 03/10/21 14:00 04/01/21 21:34 Zinc Sulfate 220 Mg Cap PO 220 mg BID BLANCA Administration Nutrition/Malnutrition Assess - Dietary Evaluation Nutrition/Malnutrition Findings: Nutrition Notes Start: 03/09/21 08:49 Freq: Status: Active Protocol: Document 03/31/21 14:51 BRIAN (Rec: 03/31/21 14:52 BRIAN [id number]) Nutrition Notes Initial or Follow up Reassessment Current Diagnosis Diabetes,Sepsis,Hypertension, Respiratory Failure Other Pertinent Diagnosis COVID-19, Bilateral Pneumonia. Current Diet TF-Glucerna 1.2 at 70 ml/hr Labs/Tests Na 140 yesterday Pertinent Medications Lasix, Reglan, Prednisone Height 5 ft 11 in Weight 122 kg [place] Body Weight (kg) 78.18 BMI 37.5 Weight Status Obese Subjective/Other Information Pt remains on vent support. Trach and PEG placed on /. Per RN, pt tolerating TF at goal rate. Percent of energy/protein needs met: 82% energy 78% pro Burn Absent Trauma Absent #1 Nutrition Diagnosis Inadequate oral intake Diagnosis Progress(for reassessment Continues documentation) Is patient on ventilator? Yes Is Patient Ambulatory and/or Out of Bed No REE-([facility]-confined to bed) [phone] Calculation Used for Recommendations 70-80% energy needs Additional Notes Energy needs: [id number] kcal/ day Pro needs 1.3g/kg adjBW: 130g/ day Fluid needs 1ml/kcal Nutrition Intervention Nutrition Support: Continue Glucerna 1.2 at 70ml/ hr with 110ml water flush q4h. Kcal 2,016 Protein (gm) 101 Carbohydrates (gm) 192 Fat (gm) 101 Fluid (mL) 1,352 Fiber (gm) 27 Goal #1 TF tolerance Goal #2 TF to meet at least 75% energy and pro needs Follow-Up By: 04/07/21 Additional Comments F/U: stable TF, vent status, wt
--- NOTE | 2021-04-01 15:21 | Progress Note ---
Assessment and Plan Acute hypoxemic respiratory failure, on continuous noninvasive ventilation COVID-19 infection Bilateral pneumonia History of diabetes Obesity Hypertension Leukocytosis Possible venous thromboembolic phenomena with significantly elevated D-dimers DM II Elevated serum inflammatory markers to include CRP levels, ferritin and LDH - Procalcitonin level unremarkable - de-escalate AB's per ID recommendations - follow cultures - LTAC evaluation ongoing - continue care as below otherwise; - continue Daily SAT and SBT assessment as tolerated - continue to wean supplemental oxygen for target O2 sat's > 90% acutely - VAP bundle addressed - continue lung protective strategies - continue bronchodilators with routiune trach care and pulmonary hygiene per RT - wean per pulmonary driven protocols otherwise - continue accuchecks with glycemic control per SSI (While critically ill target blood glucose of 140-180 mg/dL; avoid hypoglycemia) - sedation prn for target RASS 0 to -1 - avoid nephrotoxins, renally dose all medications - avoid benzodiazepine's, reduce the possibility of delirium - AB's per ID rec's - prn analgesia per pain score - Maintenance of sleep-wake cycle, avoid delirium - G.I. & VTE prophylaxis - PT/OT/ROM exercises - mobility protocols for pressure ulcer prophylaxis - Monitor hemodynamics closely - continue other care per attending / other consultants - discharge planning ongoing concurrently COVID SPECIFIC INTERVENTIONS - Remdesivir as per ID/Pulmonary developed protocols (received) - continue systemic steroids for severe COVID-19 infection empirically (Deca dron) - follow repeat COVID tests results - zinc and vitamin C supplementation - Monitor inflammatory markers per facility protocol - ferritin, Ddimer, CRP - therapeutic anticoagulation per system Protocol based on d-dimer and clinical considerations (treatment dose) - contact and airborne isolation discontinued .... Re-evaluate in am & prn CONDITION: CRITICAL PROGNOSIS: GUARDED CODE STATUS: FULL CODE The high probability of a clinically significant, sudden or life-threatening deterioration of the [respiratory, cardiovascular & hematologic] system(s) required my full and direct attention, intervention and personal management. The aggregate critical care time was [32] minutes without overlap. Time includes spent on; [x] Data Review and interpretation [x] Patient assessment and monitoring of vital signs [x] Documentation [x] Medication orders and management Subjective Date of service: 04/01/21 Principal diagnosis: COVID-19 infection; DM II; Bilateral pneumonia; Obesity; HTN Interval history: Patient is seen today for: Acute hypoxemic respiratory failure; COVID-19 infection; DM II; Bilateral pneumonia; Obesity; HTN Seen and examined at bedside; 24hour events reviewed; nursing and respiratory care staff consulted; no adverse overnight events reported to me; resting in bed; remains on MVS; LTAC evaluation ongoing; sedated; placed on SBT at bedside and tolerating well Objective Vital Signs - 12hr 04/01/21 04/01/21 04/01/21 03:30 03:45 04:00 Temperature 99.2 F Pulse Rate 104 H 104 H 103 H Pulse Rate [ Bilateral Throughout] Pulse Rate [ 102 H From Monitor] Respiratory 22 22 23 Rate Respiratory Rate [Bilateral Throughout] Blood Pressure 118/61 118/61 104/58 O2 Sat by Pulse 95 94 95 Oximetry O2 Sat by Pulse Oximetry [ Assessment] 04/01/21 04/01/21 04/01/21 04:14 04:15 04:30 Temperature Pulse Rate 103 H 103 H 102 H Pulse Rate [ Bilateral Throughout] Pulse Rate [ From Monitor] Respiratory 22 21 Rate Respiratory Rate [Bilateral Throughout] Blood Pressure 104/58 104/58 112/64 O2 Sat by Pulse 95 95 94 Oximetry O2 Sat by Pulse 95 Oximetry [ Assessment] 04/01/21 04/01/21 04/01/21 04:45 05:00 05:15 Temperature Pulse Rate 102 H 101 H 101 H Pulse Rate [ Bilateral Throughout] Pulse Rate [ From Monitor] Respiratory 21 21 20 Rate Respiratory Rate [Bilateral Throughout] Blood Pressure 112/64 118/66 118/66 O2 Sat by Pulse 94 94 95 Oximetry O2 Sat by Pulse Oximetry [ Assessment] 04/01/21 04/01/21 04/01/21 05:30 05:45 06:00 Temperature Pulse Rate 101 H 101 H 101 H Pulse Rate [ Bilateral Throughout] Pulse Rate [ From Monitor] Respiratory 19 19 20 Rate Respiratory Rate [Bilateral Throughout] Blood Pressure 111/68 111/68 119/64 O2 Sat by Pulse 94 94 94 Oximetry O2 Sat by Pulse Oximetry [ Assessment] 04/01/21 04/01/21 04/01/21 06:15 06:21 06:30 Temperature Pulse Rate 101 H 102 H 100 H Pulse Rate [ Bilateral Throughout] Pulse Rate [ From Monitor] Respiratory 20 21 Rate Respiratory Rate [Bilateral Throughout] Blood Pressure 119/64 119/64 114/68 O2 Sat by Pulse 94 94 Oximetry O2 Sat by Pulse Oximetry [ Assessment] 04/01/21 04/01/21 04/01/21 06:45 07:00 07:15 Temperature Pulse Rate 101 H 102 H 101 H Pulse Rate [ Bilateral Throughout] Pulse Rate [ From Monitor] Respiratory 21 24 25 H Rate Respiratory Rate [Bilateral Throughout] Blood Pressure 114/68 106/63 106/63 O2 Sat by Pulse 94 94 90 Oximetry O2 Sat by Pulse Oximetry [ Assessment] 04/01/21 04/01/21 04/01/21 07:30 07:31 07:45 Temperature Pulse Rate 101 H 101 H 103 H Pulse Rate [ Bilateral Throughout] Pulse Rate [ From Monitor] Respiratory 25 H 29 H Rate Respiratory Rate [Bilateral Throughout] Blood Pressure 112/61 112/61 112/61 O2 Sat by Pulse 92 92 95 Oximetry O2 Sat by Pulse Oximetry [ Assessment] 04/01/21 04/01/21 04/01/21 07:46 08:00 08:01 Temperature 99.6 F Pulse Rate 104 H 103 H Pulse Rate [ 110 H Bilateral Throughout] Pulse Rate [ 103 H From Monitor] Respiratory 28 H 28 H Rate Respiratory 24 Rate [Bilateral Throughout] Blood Pressure 158/84 O2 Sat by Pulse 96 96 Oximetry O2 Sat by Pulse Oximetry [ Assessment] 04/01/21 04/01/21 04/01/21 08:15 08:30 08:45 Temperature Pulse Rate 111 H 115 H 111 H Pulse Rate [ Bilateral Throughout] Pulse Rate [ From Monitor] Respiratory 41 H 42 H 34 H Rate Respiratory Rate [Bilateral Throughout] Blood Pressure 158/84 176/93 176/93 O2 Sat by Pulse 92 94 93 Oximetry O2 Sat by Pulse Oximetry [ Assessment] 04/01/21 04/01/21 04/01/21 09:00 09:15 09:30 Temperature Pulse Rate 110 H 110 H 122 H Pulse Rate [ Bilateral Throughout] Pulse Rate [ From Monitor] Respiratory 31 H 35 H 49 H Rate Respiratory Rate [Bilateral Throughout] Blood Pressure 141/82 141/82 187/91 O2 Sat by Pulse 94 94 94 Oximetry O2 Sat by Pulse Oximetry [ Assessment] 04/01/21 04/01/21 04/01/21 09:36 09:37 09:45 Temperature Pulse Rate 121 H 121 H 118 H Pulse Rate [ Bilateral Throughout] Pulse Rate [ From Monitor] Respiratory 42 H Rate Respiratory Rate [Bilateral Throughout] Blood Pressure 187/91 187/91 187/91 O2 Sat by Pulse 93 Oximetry O2 Sat by Pulse Oximetry [ Assessment] 04/01/21 04/01/21 04/01/21 10:00 10:15 10:31 Temperature Pulse Rate 120 H 115 H 112 H Pulse Rate [ Bilateral Throughout] Pulse Rate [ From Monitor] Respiratory 38 H 32 H 28 H Rate Respiratory Rate [Bilateral Throughout] Blood Pressure 169/80 169/80 130/62 O2 Sat by Pulse 93 93 94 Oximetry O2 Sat by Pulse Oximetry [ Assessment] 04/01/21 04/01/21 04/01/21 10:45 11:00 11:09 Temperature Pulse Rate 111 H 110 H 110 H Pulse Rate [ Bilateral Throughout] Pulse Rate [ From Monitor] Respiratory 27 H 22 Rate Respiratory Rate [Bilateral Throughout] Blood Pressure 130/62 120/62 120/62 O2 Sat by Pulse 95 95 95 Oximetry O2 Sat by Pulse Oximetry [ Assessment] 04/01/21 04/01/21 04/01/21 11:15 11:30 11:45 Temperature Pulse Rate 110 H 109 H 109 H Pulse Rate [ Bilateral Throughout] Pulse Rate [ From Monitor] Respiratory 22 24 24 Rate Respiratory Rate [Bilateral Throughout] Blood Pressure 120/62 119/65 119/65 O2 Sat by Pulse 95 95 95 Oximetry O2 Sat by Pulse Oximetry [ Assessment] 04/01/21 04/01/21 04/01/21 12:00 12:15 12:30 Temperature 100.2 F H Pulse Rate 108 H 106 H 107 H Pulse Rate [ Bilateral Throughout] Pulse Rate [ 107 H From Monitor] Respiratory 23 24 23 Rate Respiratory Rate [Bilateral Throughout] Blood Pressure 114/66 114/66 112/65 O2 Sat by Pulse 95 95 95 Oximetry O2 Sat by Pulse Oximetry [ Assessment] 04/01/21 04/01/21 04/01/21 12:45 13:00 13:15 Temperature Pulse Rate 107 H 107 H 109 H Pulse Rate [ Bilateral Throughout] Pulse Rate [ From Monitor] Respiratory 24 23 28 H Rate Respiratory Rate [Bilateral Throughout] Blood Pressure 112/65 118/67 118/67 O2 Sat by Pulse 95 95 94 Oximetry O2 Sat by Pulse Oximetry [ Assessment] 04/01/21 04/01/21 04/01/21 13:30 13:45 14:00 Temperature Pulse Rate 108 H 107 H 106 H Pulse Rate [ Bilateral Throughout] Pulse Rate [ From Monitor] Respiratory 26 H 25 H 23 Rate Respiratory Rate [Bilateral Throughout] Blood Pressure 104/57 104/57 102/53 O2 Sat by Pulse 94 95 95 Oximetry O2 Sat by Pulse Oximetry [ Assessment] 04/01/21 04/01/21 04/01/21 14:11 14:15 14:30 Temperature Pulse Rate 104 H 104 H 103 H Pulse Rate [ Bilateral Throughout] Pulse Rate [ From Monitor] Respiratory 23 24 Rate Respiratory Rate [Bilateral Throughout] Blood Pressure 102/53 102/53 112/59 O2 Sat by Pulse 96 95 Oximetry O2 Sat by Pulse Oximetry [ Assessment] Constitutional: no acute distress, agitated, other (elderly obese male with mildly increased respiratory effort at rest) Eyes: non-icteric ENT: oropharynx moist, other (+ midline tracheostomy) Neck: supple, no lymphadenopathy, no JVD, other (large circumference) Effort: mildly labored Ascultation: Bilateral: diminished breath sounds, rhonchi Percussion: Bilateral: not dull Cardiovascular: regular rate and rhythm, other (tachycardia, S1,S2) Gastrointestinal: normoactive bowel sounds, soft, non-tender, non-distended (protuberant) Integumentary: normal Extremities: no cyanosis, pulses normal, no ischemia or petechiae, edema, other Neurologic: non-focal exam (grossly), pupils equal and round, other (sedated) Psychiatric: other (unable to assess re: AMS) CBC and BMP: 04/03/21 04:14 04/03/21 04:14 ABG, PT/INR, D-dimer: ABG ABG pH 7.397 pH Units (7.350-7.450) 03/31/21 12:50 POC ABG pCO2 71.9 mmHg (32.0-48.0) H 03/12/21 21:54 ABG pCO2 58.1 mm Hg 03/31/21 12:50 POC ABG pO2 53.6 mmHg (83-108) L 03/12/21 21:54 ABG pO2 99.4 mm Hg (80.0-90.0) H 03/31/21 12:50 POC ABG HCO3 30.0 03/12/21 21:54 ABG O2 Saturation 97.3 % (95.0-99.0) 03/31/21 12:50 PT/INR, D-dimer PT 13.0 Sec. (12.2-14.9) 03/29/21 04:50 INR 0.88 (0.87-1.13) 03/29/21 04:50 D-Dimer 1359.12 ng/mlDDU (0-234) H 03/17/21 04:40 Abnormal lab findings: Abnormal Labs 03/08/21 03/08/21 03/08/21 20:24 20:24 20:24 WBC 22.6 H RBC 5.44 H Hgb 15.7 H Hct 49.2 H MCV MCHC RDW Plt Count Lymph % (Auto) [place] % (Auto) Lymph # (Auto) [place] # (Auto) Seg Neutrophils % Seg Neuts % (Manual) 83.0 H Lymphocytes % (Manual) 9.0 L Monocytes % (Manual) 8.0 H Nucleated RBC % Seg Neutrophils # Seg Neutrophils # Man 18.8 H Lymphocytes # (Manual) Monocytes # (Manual) 1.8 H PT 16.1 H INR 1.17 H D-Dimer > 36485 H ABG pH POC ABG pCO2 POC ABG pO2 ABG pO2 ABG HCO3 ABG O2 Saturation ABG Base Excess ABG Hemoglobin ABG Oxyhemoglobin ABG Sodium ABG Potassium ABG Glucose Oxyhemoglobin Sodium 136 L Potassium Chloride 93.9 L Carbon Dioxide BUN 29 H Creatinine Glucose 208 H POC Glucose Lactic Acid Calcium Phosphorus Magnesium Ferritin Lactate Dehydrogenase 624 H C-Reactive Protein 18.00 H NT-Pro-B Natriuret Pep 1053 H Total Protein Albumin Triglycerides Arterial Blood Glucose Ur Specific [place] Coronavirus (PCR) 03/08/21 03/08/21 03/09/21 20:24 20:24 04:10 WBC RBC Hgb Hct MCV MCHC RDW Plt Count Lymph % (Auto) [place] % (Auto) Lymph # (Auto) [place] # (Auto) Seg Neutrophils % Seg Neuts % (Manual) Lymphocytes % (Manual) Monocytes % (Manual) Nucleated RBC % Seg Neutrophils # Seg Neutrophils # Man Lymphocytes # (Manual) Monocytes # (Manual) PT INR D-Dimer ABG pH POC ABG pCO2 POC ABG pO2 ABG pO2 ABG HCO3 ABG O2 Saturation ABG Base Excess ABG Hemoglobin ABG Oxyhemoglobin ABG Sodium ABG Potassium ABG Glucose Oxyhemoglobin Sodium Potassium Chloride Carbon Dioxide BUN Creatinine Glucose POC Glucose Lactic Acid 2.10 H* Calcium Phosphorus Magnesium Ferritin 877.5 H Lactate Dehydrogenase C-Reactive Protein NT-Pro-B Natriuret Pep Total Protein Albumin Triglycerides Arterial Blood Glucose Ur Specific [place] 1.041 H Coronavirus (PCR) 03/09/21 03/09/21 03/09/21 07:46 08:00 13:01 WBC RBC Hgb Hct MCV MCHC RDW Plt Count Lymph % (Auto) [place] % (Auto) Lymph # (Auto) [place] # (Auto) Seg Neutrophils % Seg Neuts % (Manual) Lymphocytes % (Manual) Monocytes % (Manual) Nucleated RBC % Seg Neutrophils # Seg Neutrophils # Man Lymphocytes # (Manual) Monocytes # (Manual) PT INR D-Dimer ABG pH POC ABG pCO2 POC ABG pO2 ABG pO2 ABG HCO3 ABG O2 Saturation ABG Base Excess ABG Hemoglobin ABG Oxyhemoglobin ABG Sodium ABG Potassium ABG Glucose Oxyhemoglobin Sodium Potassium Chloride Carbon Dioxide BUN Creatinine Glucose POC Glucose 191 H 182 H Lactic Acid Calcium Phosphorus Magnesium Ferritin Lactate Dehydrogenase C-Reactive Protein NT-Pro-B Natriuret Pep Total Protein Albumin Triglycerides Arterial Blood Glucose Ur Specific [place] Coronavirus (PCR) Positive A 03/09/21 03/09/21 03/09/21 15:19 17:48 18:10 WBC RBC Hgb Hct MCV MCHC RDW Plt Count Lymph % (Auto) [place] % (Auto) Lymph # (Auto) [place] # (Auto) Seg Neutrophils % Seg Neuts % (Manual) Lymphocytes % (Manual) Monocytes % (Manual) Nucleated RBC % Seg Neutrophils # Seg Neutrophils # Man Lymphocytes # (Manual) Monocytes # (Manual) PT INR D-Dimer ABG pH POC ABG pCO2 POC ABG pO2 ABG pO2 47.3 L ABG HCO3 26.3 H ABG O2 Saturation 83.7 L ABG Base Excess ABG Hemoglobin ABG Oxyhemoglobin ABG Sodium ABG Potassium ABG Glucose Oxyhemoglobin 82.1 L Sodium Potassium Chloride Carbon Dioxide BUN 29 H Creatinine Glucose 214 H POC Glucose 194 H Lactic Acid Calcium Phosphorus Magnesium Ferritin Lactate Dehydrogenase C-Reactive Protein NT-Pro-B Natriuret Pep Total Protein Albumin 3.4 L Triglycerides Arterial Blood Glucose Ur Specific [place] Coronavirus (PCR) 03/09/21 03/10/21 03/10/21 20:40 04:29 04:29 WBC 20.6 H RBC 5.07 H Hgb Hct 46.2 H MCV MCHC RDW Plt Count Lymph % (Auto) [place] % (Auto) Lymph # (Auto) [place] # (Auto) Seg Neutrophils % Seg Neuts % (Manual) 94.0 H Lymphocytes % (Manual) 1.0 L Monocytes % (Manual) Nucleated RBC % 3.0 H Seg Neutrophils # Seg Neutrophils # Man 19.4 H Lymphocytes # (Manual) 0.2 L Monocytes # (Manual) 1.0 H PT INR D-Dimer ABG pH POC ABG pCO2 POC ABG pO2 ABG pO2 ABG HCO3 ABG O2 Saturation ABG Base Excess ABG Hemoglobin ABG Oxyhemoglobin ABG Sodium ABG Potassium ABG Glucose Oxyhemoglobin Sodium Potassium Chloride Carbon Dioxide BUN 29 H Creatinine Glucose 188 H POC Glucose 176 H Lactic Acid Calcium Phosphorus Magnesium Ferritin Lactate Dehydrogenase C-Reactive Protein NT-Pro-B Natriuret Pep Total Protein Albumin 3.3 L Triglycerides Arterial Blood Glucose Ur Specific [place] Coronavirus (PCR) 03/10/21 03/10/21 03/10/21 05:22 10:27 15:25 WBC RBC Hgb Hct MCV MCHC RDW Plt Count Lymph % (Auto) [place] % (Auto) Lymph # (Auto) [place] # (Auto) Seg Neutrophils % Seg Neuts % (Manual) Lymphocytes % (Manual) Monocytes % (Manual) Nucleated RBC % Seg Neutrophils # Seg Neutrophils # Man Lymphocytes # (Manual) Monocytes # (Manual) PT INR D-Dimer ABG pH 7.488 H 7.488 H POC ABG pCO2 POC ABG pO2 ABG pO2 47.7 L 50.5 L ABG HCO3 ABG O2 Saturation 86.2 L 87.9 L ABG Base Excess ABG Hemoglobin ABG Oxyhemoglobin ABG Sodium ABG Potassium ABG Glucose Oxyhemoglobin 84.6 L 86.2 L Sodium Potassium Chloride Carbon Dioxide BUN Creatinine Glucose POC Glucose 155 H Lactic Acid Calcium Phosphorus Magnesium Ferritin Lactate Dehydrogenase C-Reactive Protein NT-Pro-B Natriuret Pep Total Protein Albumin Triglycerides Arterial Blood Glucose Ur Specific [place] Coronavirus (PCR) 03/10/21 03/10/21 03/11/21 18:10 18:55 00:07 WBC RBC Hgb Hct MCV MCHC RDW Plt Count Lymph % (Auto) [place] % (Auto) Lymph # (Auto) [place] # (Auto) Seg Neutrophils % Seg Neuts % (Manual) Lymphocytes % (Manual) Monocytes % (Manual) Nucleated RBC % Seg Neutrophils # Seg Neutrophils # Man Lymphocytes # (Manual) Monocytes # (Manual) PT INR D-Dimer ABG pH 7.343 L POC ABG pCO2 POC ABG pO2 ABG pO2 60.4 L ABG HCO3 27.9 H ABG O2 Saturation 88.7 L ABG Base Excess ABG Hemoglobin ABG Oxyhemoglobin ABG Sodium ABG Potassium ABG Glucose Oxyhemoglobin 86.9 L Sodium Potassium Chloride Carbon Dioxide BUN Creatinine Glucose POC Glucose 187 H 139 H Lactic Acid Calcium Phosphorus Magnesium Ferritin Lactate Dehydrogenase C-Reactive Protein NT-Pro-B Natriuret Pep Total Protein Albumin Triglycerides Arterial Blood Glucose Ur Specific [place] Coronavirus (PCR) 03/11/21 03/11/21 03/11/21 02:09 04:28 08:06 WBC RBC Hgb Hct MCV MCHC RDW Plt Count Lymph % (Auto) [place] % (Auto) Lymph # (Auto) [place] # (Auto) Seg Neutrophils % Seg Neuts % (Manual) Lymphocytes % (Manual) Monocytes % (Manual) Nucleated RBC % Seg Neutrophils # Seg Neutrophils # Man Lymphocytes # (Manual) Monocytes # (Manual) PT INR D-Dimer ABG pH 7.277 L POC ABG pCO2 55.9 H POC ABG pO2 54.4 L ABG pO2 ABG HCO3 ABG O2 Saturation ABG Base Excess ABG Hemoglobin ABG Oxyhemoglobin 83.0 L ABG Sodium ABG Potassium 4.8 H ABG Glucose 180 H Oxyhemoglobin Sodium Potassium Chloride Carbon Dioxide BUN 38 H Creatinine Glucose 249 H POC Glucose 278 H Lactic Acid Calcium Phosphorus Magnesium Ferritin Lactate Dehydrogenase C-Reactive Protein NT-Pro-B Natriuret Pep Total Protein Albumin 3.2 L Triglycerides Arterial Blood Glucose 180 H Ur Specific [place] Coronavirus (PCR) 03/11/21 03/11/21 03/11/21 11:29 15:06 15:48 WBC RBC Hgb Hct MCV MCHC RDW Plt Count Lymph % (Auto) [place] % (Auto) Lymph # (Auto) [place] # (Auto) Seg Neutrophils % Seg Neuts % (Manual) Lymphocytes % (Manual) Monocytes % (Manual) Nucleated RBC % Seg Neutrophils # Seg Neutrophils # Man Lymphocytes # (Manual) Monocytes # (Manual) PT INR D-Dimer ABG pH 7.260 L POC ABG pCO2 POC ABG pO2 ABG pO2 53.5 L ABG HCO3 29.5 H ABG O2 Saturation 84.0 L ABG Base Excess ABG Hemoglobin ABG Oxyhemoglobin ABG Sodium ABG Potassium ABG Glucose Oxyhemoglobin 82.3 L Sodium Potassium Chloride Carbon Dioxide BUN Creatinine Glucose POC Glucose 288 H 295 H Lactic Acid Calcium Phosphorus Magnesium Ferritin Lactate Dehydrogenase C-Reactive Protein NT-Pro-B Natriuret Pep Total Protein Albumin Triglycerides Arterial Blood Glucose Ur Specific [place] Coronavirus (PCR) 03/12/21 03/12/21 03/12/21 00:01 05:24 08:03 WBC RBC Hgb Hct MCV MCHC RDW Plt Count Lymph % (Auto) [place] % (Auto) Lymph # (Auto) [place] # (Auto) Seg Neutrophils % Seg Neuts % (Manual) Lymphocytes % (Manual) Monocytes % (Manual) Nucleated RBC % Seg Neutrophils # Seg Neutrophils # Man Lymphocytes # (Manual) Monocytes # (Manual) PT INR D-Dimer ABG pH POC ABG pCO2 POC ABG pO2 ABG pO2 ABG HCO3 ABG O2 Saturation ABG Base Excess ABG Hemoglobin ABG Oxyhemoglobin ABG Sodium ABG Potassium ABG Glucose Oxyhemoglobin Sodium 135 L Potassium Chloride Carbon Dioxide BUN 48 H Creatinine Glucose 358 H POC Glucose 304 H 310 H Lactic Acid Calcium Phosphorus Magnesium Ferritin Lactate Dehydrogenase C-Reactive Protein NT-Pro-B Natriuret Pep Total Protein 6.0 L Albumin 2.9 L Triglycerides Arterial Blood Glucose Ur Specific [place] Coronavirus (PCR) 03/12/21 03/12/21 03/12/21 08:03 10:43 11:31 WBC 14.6 H RBC Hgb Hct MCV MCHC RDW Plt Count Lymph % (Auto) [place] % (Auto) Lymph # (Auto) [place] # (Auto) Seg Neutrophils % Seg Neuts % (Manual) Lymphocytes % (Manual) Monocytes % (Manual) Nucleated RBC % Seg Neutrophils # Seg Neutrophils # Man Lymphocytes # (Manual) Monocytes # (Manual) PT INR D-Dimer ABG pH 7.248 L POC ABG pCO2 POC ABG pO2 ABG pO2 73.7 L ABG HCO3 32.0 H ABG O2 Saturation 93.9 L ABG Base Excess ABG Hemoglobin ABG Oxyhemoglobin ABG Sodium ABG Potassium ABG Glucose Oxyhemoglobin 92.1 L Sodium Potassium Chloride Carbon Dioxide BUN Creatinine Glucose POC Glucose 359 H Lactic Acid Calcium Phosphorus Magnesium Ferritin Lactate Dehydrogenase C-Reactive Protein NT-Pro-B Natriuret Pep Total Protein Albumin Triglycerides Arterial Blood Glucose Ur Specific [place] Coronavirus (PCR) 03/12/21 03/12/21 03/13/21 17:20 21:54 00:02 WBC RBC Hgb Hct MCV MCHC RDW Plt Count Lymph % (Auto) [place] % (Auto) Lymph # (Auto) [place] # (Auto) Seg Neutrophils % Seg Neuts % (Manual) Lymphocytes % (Manual) Monocytes % (Manual) Nucleated RBC % Seg Neutrophils # Seg Neutrophils # Man Lymphocytes # (Manual) Monocytes # (Manual) PT INR D-Dimer ABG pH 7.238 L POC ABG pCO2 71.9 H POC ABG pO2 53.6 L ABG pO2 ABG HCO3 ABG O2 Saturation ABG Base Excess ABG Hemoglobin ABG Oxyhemoglobin 84.8 L ABG Sodium 134.2 L ABG Potassium 4.9 H ABG Glucose 306 H Oxyhemoglobin Sodium Potassium Chloride Carbon Dioxide BUN Creatinine Glucose POC Glucose 374 H 308 H Lactic Acid Calcium Phosphorus Magnesium Ferritin Lactate Dehydrogenase C-Reactive Protein NT-Pro-B Natriuret Pep Total Protein Albumin Triglycerides Arterial Blood Glucose 306 H Ur Specific [place] Coronavirus (PCR) 03/13/21 03/13/21 03/13/21 05:22 05:44 05:44 WBC 13.9 H RBC Hgb Hct MCV MCHC RDW Plt Count Lymph % (Auto) [place] % (Auto) Lymph # (Auto) [place] # (Auto) Seg Neutrophils % Seg Neuts % (Manual) Lymphocytes % (Manual) Monocytes % (Manual) Nucleated RBC % Seg Neutrophils # Seg Neutrophils # Man Lymphocytes # (Manual) Monocytes # (Manual) PT INR D-Dimer 3567.97 H ABG pH POC ABG pCO2 POC ABG pO2 ABG pO2 ABG HCO3 ABG O2 Saturation ABG Base Excess ABG Hemoglobin ABG Oxyhemoglobin ABG Sodium ABG Potassium ABG Glucose Oxyhemoglobin Sodium Potassium Chloride Carbon Dioxide BUN Creatinine Glucose POC Glucose 316 H Lactic Acid Calcium Phosphorus Magnesium Ferritin Lactate Dehydrogenase C-Reactive Protein NT-Pro-B Natriuret Pep Total Protein Albumin Triglycerides Arterial Blood Glucose Ur Specific [place] Coronavirus (PCR) 03/13/21 03/13/21 03/13/21 05:44 05:44 11:15 WBC RBC Hgb Hct MCV MCHC RDW Plt Count Lymph % (Auto) [place] % (Auto) Lymph # (Auto) [place] # (Auto) Seg Neutrophils % Seg Neuts % (Manual) Lymphocytes % (Manual) Monocytes % (Manual) Nucleated RBC % Seg Neutrophils # Seg Neutrophils # Man Lymphocytes # (Manual) Monocytes # (Manual) PT INR D-Dimer ABG pH 7.310 L POC ABG pCO2 POC ABG pO2 ABG pO2 52.3 L ABG HCO3 34.1 H ABG O2 Saturation 86.8 L ABG Base Excess 5.5 H ABG Hemoglobin 13.8 L ABG Oxyhemoglobin ABG Sodium ABG Potassium ABG Glucose Oxyhemoglobin 85.1 L Sodium Potassium Chloride Carbon Dioxide BUN Creatinine Glucose POC Glucose Lactic Acid Calcium Phosphorus Magnesium Ferritin 858.7 H Lactate Dehydrogenase 348 H C-Reactive Protein 2.80 H NT-Pro-B Natriuret Pep Total Protein Albumin Triglycerides Arterial Blood Glucose Ur Specific [place] Coronavirus (PCR) 03/13/21 03/13/21 03/13/21 11:21 15:47 19:23 WBC RBC Hgb Hct MCV MCHC RDW Plt Count Lymph % (Auto) [place] % (Auto) Lymph # (Auto) [place] # (Auto) Seg Neutrophils % Seg Neuts % (Manual) Lymphocytes % (Manual) Monocytes % (Manual) Nucleated RBC % Seg Neutrophils # Seg Neutrophils # Man Lymphocytes # (Manual) Monocytes # (Manual) PT INR D-Dimer ABG pH POC ABG pCO2 POC ABG pO2 ABG pO2 ABG HCO3 ABG O2 Saturation ABG Base Excess ABG Hemoglobin ABG Oxyhemoglobin ABG Sodium ABG Potassium ABG Glucose Oxyhemoglobin Sodium 136 L Potassium 5.9 H Chloride Carbon Dioxide BUN 50 H Creatinine Glucose 397 H POC Glucose 322 H 317 H Lactic Acid Calcium Phosphorus Magnesium Ferritin Lactate Dehydrogenase C-Reactive Protein NT-Pro-B Natriuret Pep Total Protein Albumin Triglycerides Arterial Blood Glucose Ur Specific [place] Coronavirus (PCR) 03/13/21 03/14/21 03/14/21 23:46 05:32 05:50 WBC 11.6 H RBC Hgb Hct MCV MCHC RDW Plt Count Lymph % (Auto) [place] % (Auto) Lymph # (Auto) [place] # (Auto) Seg Neutrophils % Seg Neuts % (Manual) Lymphocytes % (Manual) Monocytes % (Manual) Nucleated RBC % Seg Neutrophils # Seg Neutrophils # Man Lymphocytes # (Manual) Monocytes # (Manual) PT INR D-Dimer ABG pH POC ABG pCO2 POC ABG pO2 ABG pO2 ABG HCO3 ABG O2 Saturation ABG Base Excess ABG Hemoglobin ABG Oxyhemoglobin ABG Sodium ABG Potassium ABG Glucose Oxyhemoglobin Sodium Potassium Chloride Carbon Dioxide BUN Creatinine Glucose POC Glucose 332 H 316 H Lactic Acid Calcium Phosphorus Magnesium Ferritin Lactate Dehydrogenase C-Reactive Protein NT-Pro-B Natriuret Pep Total Protein Albumin Triglycerides Arterial Blood Glucose Ur Specific [place] Coronavirus (PCR) 03/14/21 03/14/21 03/14/21 05:50 11:33 16:53 WBC RBC Hgb Hct MCV MCHC RDW Plt Count Lymph % (Auto) [place] % (Auto) Lymph # (Auto) [place] # (Auto) Seg Neutrophils % Seg Neuts % (Manual) Lymphocytes % (Manual) Monocytes % (Manual) Nucleated RBC % Seg Neutrophils # Seg Neutrophils # Man Lymphocytes # (Manual) Monocytes # (Manual) PT INR D-Dimer ABG pH POC ABG pCO2 POC ABG pO2 ABG pO2 ABG HCO3 ABG O2 Saturation ABG Base Excess ABG Hemoglobin ABG Oxyhemoglobin ABG Sodium ABG Potassium ABG Glucose Oxyhemoglobin Sodium Potassium 5.9 H Chloride Carbon Dioxide 31 H BUN 48 H Creatinine Glucose 380 H POC Glucose 315 H 235 H Lactic Acid Calcium Phosphorus Magnesium 3.40 H Ferritin Lactate Dehydrogenase C-Reactive Protein NT-Pro-B Natriuret Pep Total Protein Albumin Triglycerides Arterial Blood Glucose Ur Specific [place] Coronavirus (PCR) 03/14/21 03/14/21 03/15/21 18:34 23:27 01:22 WBC RBC Hgb Hct 46.3 H MCV MCHC RDW Plt Count Lymph % (Auto) [place] % (Auto) Lymph # (Auto) [place] # (Auto) Seg Neutrophils % Seg Neuts % (Manual) Lymphocytes % (Manual) Monocytes % (Manual) Nucleated RBC % Seg Neutrophils # Seg Neutrophils # Man Lymphocytes # (Manual) Monocytes # (Manual) PT INR D-Dimer ABG pH POC ABG pCO2 POC ABG pO2 ABG pO2 ABG HCO3 ABG O2 Saturation ABG Base Excess ABG Hemoglobin ABG Oxyhemoglobin ABG Sodium ABG Potassium ABG Glucose Oxyhemoglobin Sodium 146 H Potassium Chloride Carbon Dioxide 34 H BUN 49 H Creatinine Glucose 285 H POC Glucose 203 H Lactic Acid Calcium Phosphorus Magnesium Ferritin Lactate Dehydrogenase C-Reactive Protein NT-Pro-B Natriuret Pep Total Protein Albumin Triglycerides Arterial Blood Glucose Ur Specific [place] Coronavirus (PCR) 03/15/21 03/15/21 03/15/21 04:00 06:06 06:06 WBC RBC Hgb Hct MCV MCHC RDW Plt Count Lymph % (Auto) [place] % (Auto) Lymph # (Auto) [place] # (Auto) Seg Neutrophils % Seg Neuts % (Manual) Lymphocytes % (Manual) Monocytes % (Manual) Nucleated RBC % Seg Neutrophils # Seg Neutrophils # Man Lymphocytes # (Manual) Monocytes # (Manual) PT INR D-Dimer 1781.79 H ABG pH POC ABG pCO2 POC ABG pO2 ABG pO2 ABG HCO3 ABG O2 Saturation ABG Base Excess ABG Hemoglobin ABG Oxyhemoglobin ABG Sodium ABG Potassium ABG Glucose Oxyhemoglobin Sodium 148 H Potassium 5.7 H D Chloride 108.0 H Carbon Dioxide 31 H BUN 46 H Creatinine Glucose 139 H POC Glucose Lactic Acid Calcium Phosphorus 4.80 H D Magnesium 3.00 H Ferritin 976.4 H Lactate Dehydrogenase 630 H C-Reactive Protein NT-Pro-B Natriuret Pep Total Protein Albumin Triglycerides Arterial Blood Glucose Ur Specific [place] Coronavirus (PCR) 03/15/21 03/15/21 03/15/21 11:56 14:05 17:09 WBC RBC Hgb Hct MCV MCHC RDW Plt Count Lymph % (Auto) [place] % (Auto) Lymph # (Auto) [place] # (Auto) Seg Neutrophils % Seg Neuts % (Manual) Lymphocytes % (Manual) Monocytes % (Manual) Nucleated RBC % Seg Neutrophils # Seg Neutrophils # Man Lymphocytes # (Manual) Monocytes # (Manual) PT INR D-Dimer ABG pH POC ABG pCO2 POC ABG pO2 ABG pO2 52.1 L ABG HCO3 36.6 H ABG O2 Saturation 87.6 L ABG Base Excess 9.5 H ABG Hemoglobin ABG Oxyhemoglobin ABG Sodium ABG Potassium ABG Glucose Oxyhemoglobin 85.7 L Sodium Potassium Chloride Carbon Dioxide BUN Creatinine Glucose POC Glucose 219 H 263 H Lactic Acid Calcium Phosphorus Magnesium Ferritin Lactate Dehydrogenase C-Reactive Protein NT-Pro-B Natriuret Pep Total Protein Albumin Triglycerides Arterial Blood Glucose Ur Specific [place] Coronavirus (PCR) 03/16/21 03/16/21 03/16/21 00:32 04:11 04:11 WBC 11.9 H RBC Hgb Hct MCV MCHC 30 L RDW Plt Count Lymph % (Auto) [place] % (Auto) Lymph # (Auto) [place] # (Auto) Seg Neutrophils % Seg Neuts % (Manual) Lymphocytes % (Manual) Monocytes % (Manual) Nucleated RBC % Seg Neutrophils # Seg Neutrophils # Man Lymphocytes # (Manual) Monocytes # (Manual) PT INR D-Dimer ABG pH POC ABG pCO2 POC ABG pO2 ABG pO2 ABG HCO3 ABG O2 Saturation ABG Base Excess ABG Hemoglobin ABG Oxyhemoglobin ABG Sodium ABG Potassium ABG Glucose Oxyhemoglobin Sodium 151 H Potassium Chloride Carbon Dioxide 35 H BUN 48 H Creatinine Glucose 152 H POC Glucose 165 H Lactic Acid Calcium Phosphorus Magnesium Ferritin Lactate Dehydrogenase C-Reactive Protein NT-Pro-B Natriuret Pep Total Protein Albumin Triglycerides Arterial Blood Glucose Ur Specific [place] Coronavirus (PCR) 03/16/21 03/16/21 03/16/21 04:11 05:26 11:35 WBC RBC Hgb Hct MCV MCHC RDW Plt Count Lymph % (Auto) [place] % (Auto) Lymph # (Auto) [place] # (Auto) Seg Neutrophils % Seg Neuts % (Manual) Lymphocytes % (Manual) Monocytes % (Manual) Nucleated RBC % Seg Neutrophils # Seg Neutrophils # Man Lymphocytes # (Manual) Monocytes # (Manual) PT INR D-Dimer ABG pH POC ABG pCO2 POC ABG pO2 ABG pO2 ABG HCO3 ABG O2 Saturation ABG Base Excess ABG Hemoglobin ABG Oxyhemoglobin ABG Sodium ABG Potassium ABG Glucose Oxyhemoglobin Sodium Potassium Chloride Carbon Dioxide BUN Creatinine Glucose POC Glucose 162 H 187 H Lactic Acid Calcium Phosphorus Magnesium Ferritin Lactate Dehydrogenase C-Reactive Protein NT-Pro-B Natriuret Pep Total Protein Albumin Triglycerides 267 H Arterial Blood Glucose Ur Specific [place] Coronavirus (PCR) 03/16/21 03/16/21 03/16/21 17:29 22:25 23:22 WBC RBC Hgb Hct MCV MCHC RDW Plt Count Lymph % (Auto) [place] % (Auto) Lymph # (Auto) [place] # (Auto) Seg Neutrophils % Seg Neuts % (Manual) Lymphocytes % (Manual) Monocytes % (Manual) Nucleated RBC % Seg Neutrophils # Seg Neutrophils # Man Lymphocytes # (Manual) Monocytes # (Manual) PT INR D-Dimer ABG pH POC ABG pCO2 POC ABG pO2 ABG pO2 ABG HCO3 ABG O2 Saturation ABG Base Excess ABG Hemoglobin ABG Oxyhemoglobin ABG Sodium ABG Potassium ABG Glucose Oxyhemoglobin Sodium Potassium Chloride Carbon Dioxide BUN Creatinine Glucose POC Glucose 237 H 165 H 189 H Lactic Acid Calcium Phosphorus Magnesium Ferritin Lactate Dehydrogenase C-Reactive Protein NT-Pro-B Natriuret Pep Total Protein Albumin Triglycerides Arterial Blood Glucose Ur Specific [place] Coronavirus (PCR) 03/17/21 03/17/21 03/17/21 04:40 04:40 04:40 WBC 14.1 H RBC Hgb Hct MCV MCHC RDW 15.3 H Plt Count Lymph % (Auto) 12.6 L [place] % (Auto) 11.3 H Lymph # (Auto) [place] # (Auto) 1.6 H Seg Neutrophils % 74.9 H Seg Neuts % (Manual) Lymphocytes % (Manual) Monocytes % (Manual) Nucleated RBC % Seg Neutrophils # 10.5 H Seg Neutrophils # Man Lymphocytes # (Manual) Monocytes # (Manual) PT INR D-Dimer 1359.12 H ABG pH POC ABG pCO2 POC ABG pO2 ABG pO2 ABG HCO3 ABG O2 Saturation ABG Base Excess ABG Hemoglobin ABG Oxyhemoglobin ABG Sodium ABG Potassium ABG Glucose Oxyhemoglobin Sodium 148 H Potassium Chloride 107.5 H Carbon Dioxide 33 H BUN 42 H Creatinine Glucose 183 H POC Glucose Lactic Acid Calcium Phosphorus Magnesium 2.70 H Ferritin Lactate Dehydrogenase C-Reactive Protein NT-Pro-B Natriuret Pep Total Protein Albumin Triglycerides Arterial Blood Glucose Ur Specific [place] Coronavirus (PCR) 03/17/21 03/17/21 03/17/21 05:53 11:05 11:51 WBC RBC Hgb Hct MCV MCHC RDW Plt Count Lymph % (Auto) [place] % (Auto) Lymph # (Auto) [place] # (Auto) Seg Neutrophils % Seg Neuts % (Manual) Lymphocytes % (Manual) Monocytes % (Manual) Nucleated RBC % Seg Neutrophils # Seg Neutrophils # Man Lymphocytes # (Manual) Monocytes # (Manual) PT INR D-Dimer ABG pH POC ABG pCO2 POC ABG pO2 ABG pO2 ABG HCO3 35.7 H ABG O2 Saturation ABG Base Excess 8.7 H ABG Hemoglobin ABG Oxyhemoglobin ABG Sodium ABG Potassium ABG Glucose Oxyhemoglobin 94.2 L Sodium Potassium Chloride Carbon Dioxide BUN Creatinine Glucose POC Glucose 176 H 197 H Lactic Acid Calcium Phosphorus Magnesium Ferritin Lactate Dehydrogenase C-Reactive Protein NT-Pro-B Natriuret Pep Total Protein Albumin Triglycerides Arterial Blood Glucose Ur Specific [place] Coronavirus (PCR) 03/17/21 03/17/21 03/17/21 16:54 21:10 23:33 WBC RBC Hgb Hct MCV MCHC RDW Plt Count Lymph % (Auto) [place] % (Auto) Lymph # (Auto) [place] # (Auto) Seg Neutrophils % Seg Neuts % (Manual) Lymphocytes % (Manual) Monocytes % (Manual) Nucleated RBC % Seg Neutrophils # Seg Neutrophils # Man Lymphocytes # (Manual) Monocytes # (Manual) PT INR D-Dimer ABG pH POC ABG pCO2 POC ABG pO2 ABG pO2 ABG HCO3 ABG O2 Saturation ABG Base Excess ABG Hemoglobin ABG Oxyhemoglobin ABG Sodium ABG Potassium ABG Glucose Oxyhemoglobin Sodium Potassium Chloride Carbon Dioxide BUN Creatinine Glucose POC Glucose 135 H 160 H 138 H Lactic Acid Calcium Phosphorus Magnesium Ferritin Lactate Dehydrogenase C-Reactive Protein NT-Pro-B Natriuret Pep Total Protein Albumin Triglycerides Arterial Blood Glucose Ur Specific [place] Coronavirus (PCR) 03/18/21 03/18/21 03/18/21 04:18 04:50 05:43 WBC RBC Hgb Hct MCV MCHC RDW Plt Count Lymph % (Auto) [place] % (Auto) Lymph # (Auto) [place] # (Auto) Seg Neutrophils % Seg Neuts % (Manual) Lymphocytes % (Manual) Monocytes % (Manual) Nucleated RBC % Seg Neutrophils # Seg Neutrophils # Man Lymphocytes # (Manual) Monocytes # (Manual) PT INR D-Dimer ABG pH POC ABG pCO2 POC ABG pO2 ABG pO2 59.8 L ABG HCO3 36.5 H ABG O2 Saturation 90.7 L ABG Base Excess 9.4 H ABG Hemoglobin 12.0 L ABG Oxyhemoglobin ABG Sodium ABG Potassium ABG Glucose Oxyhemoglobin 88.9 L Sodium Potassium Chloride 107.2 H Carbon Dioxide 34 H BUN 38 H Creatinine 0.7 L Glucose 136 H POC Glucose 128 H Lactic Acid Calcium Phosphorus Magnesium Ferritin Lactate Dehydrogenase C-Reactive Protein NT-Pro-B Natriuret Pep Total Protein Albumin Triglycerides Arterial Blood Glucose Ur Specific [place] Coronavirus (PCR) 03/18/21 03/18/21 03/18/21 11:20 17:35 23:35 WBC RBC Hgb Hct MCV MCHC RDW Plt Count Lymph % (Auto) [place] % (Auto) Lymph # (Auto) [place] # (Auto) Seg Neutrophils % Seg Neuts % (Manual) Lymphocytes % (Manual) Monocytes % (Manual) Nucleated RBC % Seg Neutrophils # Seg Neutrophils # Man Lymphocytes # (Manual) Monocytes # (Manual) PT INR D-Dimer ABG pH POC ABG pCO2 POC ABG pO2 ABG pO2 70.7 L ABG HCO3 33.6 H ABG O2 Saturation ABG Base Excess 8.0 H ABG Hemoglobin ABG Oxyhemoglobin ABG Sodium ABG Potassium ABG Glucose Oxyhemoglobin 93.7 L Sodium Potassium Chloride Carbon Dioxide BUN Creatinine Glucose POC Glucose 189 H 144 H Lactic Acid Calcium Phosphorus Magnesium Ferritin Lactate Dehydrogenase C-Reactive Protein NT-Pro-B Natriuret Pep Total Protein Albumin Triglycerides Arterial Blood Glucose Ur Specific [place] Coronavirus (PCR) 03/19/21 03/19/21 03/19/21 02:35 04:20 04:20 WBC 14.0 H RBC Hgb Hct MCV MCHC RDW Plt Count Lymph % (Auto) [place] % (Auto) Lymph # (Auto) [place] # (Auto) Seg Neutrophils % Seg Neuts % (Manual) Lymphocytes % (Manual) Monocytes % (Manual) Nucleated RBC % Seg Neutrophils # Seg Neutrophils # Man Lymphocytes # (Manual) Monocytes # (Manual) PT INR D-Dimer ABG pH POC ABG pCO2 POC ABG pO2 ABG pO2 ABG HCO3 32.0 H ABG O2 Saturation ABG Base Excess 5.2 H ABG Hemoglobin 13.6 L ABG Oxyhemoglobin ABG Sodium ABG Potassium ABG Glucose Oxyhemoglobin 94.6 L Sodium 146 H Potassium Chloride 109.3 H Carbon Dioxide BUN 36 H Creatinine Glucose 203 H POC Glucose Lactic Acid Calcium Phosphorus Magnesium Ferritin Lactate Dehydrogenase C-Reactive Protein NT-Pro-B Natriuret Pep Total Protein Albumin Triglycerides 254 H Arterial Blood Glucose Ur Specific [place] Coronavirus (PCR) 03/19/21 03/19/21 03/19/21 05:45 11:36 23:51 WBC RBC Hgb Hct MCV MCHC RDW Plt Count Lymph % (Auto) [place] % (Auto) Lymph # (Auto) [place] # (Auto) Seg Neutrophils % Seg Neuts % (Manual) Lymphocytes % (Manual) Monocytes % (Manual) Nucleated RBC % Seg Neutrophils # Seg Neutrophils # Man Lymphocytes # (Manual) Monocytes # (Manual) PT INR D-Dimer ABG pH POC ABG pCO2 POC ABG pO2 ABG pO2 ABG HCO3 ABG O2 Saturation ABG Base Excess ABG Hemoglobin ABG Oxyhemoglobin ABG Sodium ABG Potassium ABG Glucose Oxyhemoglobin Sodium Potassium Chloride Carbon Dioxide BUN Creatinine Glucose POC Glucose 164 H 172 H 140 H Lactic Acid Calcium Phosphorus Magnesium Ferritin Lactate Dehydrogenase C-Reactive Protein NT-Pro-B Natriuret Pep Total Protein Albumin Triglycerides Arterial Blood Glucose Ur Specific [place] Coronavirus (PCR) 03/20/21 03/20/21 03/20/21 03:29 04:45 04:45 WBC RBC Hgb Hct MCV 95 H MCHC RDW 15.7 H Plt Count Lymph % (Auto) [place] % (Auto) Lymph # (Auto) [place] # (Auto) Seg Neutrophils % Seg Neuts % (Manual) Lymphocytes % (Manual) Monocytes % (Manual) Nucleated RBC % Seg Neutrophils # Seg Neutrophils # Man Lymphocytes # (Manual) Monocytes # (Manual) PT INR D-Dimer ABG pH 7.349 L POC ABG pCO2 POC ABG pO2 ABG pO2 ABG HCO3 33.7 H ABG O2 Saturation ABG Base Excess 6.4 H ABG Hemoglobin 11.8 L ABG Oxyhemoglobin ABG Sodium ABG Potassium ABG Glucose Oxyhemoglobin 93.9 L Sodium 146 H Potassium 5.5 H Chloride 111.1 H Carbon Dioxide BUN 34 H Creatinine 0.7 L Glucose 145 H POC Glucose Lactic Acid Calcium Phosphorus Magnesium 2.50 H Ferritin Lactate Dehydrogenase C-Reactive Protein NT-Pro-B Natriuret Pep Total Protein Albumin Triglycerides Arterial Blood Glucose Ur Specific [place] Coronavirus (PCR) 03/20/21 03/20/21 03/20/21 05:41 09:08 11:54 WBC RBC Hgb Hct MCV MCHC RDW Plt Count Lymph % (Auto) [place] % (Auto) Lymph # (Auto) [place] # (Auto) Seg Neutrophils % Seg Neuts % (Manual) Lymphocytes % (Manual) Monocytes % (Manual) Nucleated RBC % Seg Neutrophils # Seg Neutrophils # Man Lymphocytes # (Manual) Monocytes # (Manual) PT INR D-Dimer ABG pH POC ABG pCO2 POC ABG pO2 ABG pO2 ABG HCO3 ABG O2 Saturation ABG Base Excess ABG Hemoglobin ABG Oxyhemoglobin ABG Sodium ABG Potassium ABG Glucose Oxyhemoglobin Sodium Potassium Chloride Carbon Dioxide BUN Creatinine Glucose POC Glucose 108 H 132 H 162 H Lactic Acid Calcium Phosphorus Magnesium Ferritin Lactate Dehydrogenase C-Reactive Protein NT-Pro-B Natriuret Pep Total Protein Albumin Triglycerides Arterial Blood Glucose Ur Specific [place] Coronavirus (PCR) 03/20/21 03/21/21 03/21/21 17:28 00:31 04:44 WBC RBC Hgb Hct MCV MCHC RDW Plt Count Lymph % (Auto) [place] % (Auto) Lymph # (Auto) [place] # (Auto) Seg Neutrophils % Seg Neuts % (Manual) Lymphocytes % (Manual) Monocytes % (Manual) Nucleated RBC % Seg Neutrophils # Seg Neutrophils # Man Lymphocytes # (Manual) Monocytes # (Manual) PT INR D-Dimer ABG pH POC ABG pCO2 POC ABG pO2 ABG pO2 ABG HCO3 ABG O2 Saturation ABG Base Excess ABG Hemoglobin ABG Oxyhemoglobin ABG Sodium ABG Potassium ABG Glucose Oxyhemoglobin Sodium Potassium Chloride 108.3 H Carbon Dioxide BUN 30 H Creatinine 0.7 L Glucose POC Glucose 160 H 122 H Lactic Acid Calcium Phosphorus Magnesium Ferritin Lactate Dehydrogenase C-Reactive Protein NT-Pro-B Natriuret Pep Total Protein Albumin Triglycerides Arterial Blood Glucose Ur Specific [place] Coronavirus (PCR) 03/21/21 03/21/21 03/21/21 09:18 10:09 13:20 WBC RBC Hgb Hct MCV MCHC RDW Plt Count Lymph % (Auto) [place] % (Auto) Lymph # (Auto) [place] # (Auto) Seg Neutrophils % Seg Neuts % (Manual) Lymphocytes % (Manual) Monocytes % (Manual) Nucleated RBC % Seg Neutrophils # Seg Neutrophils # Man Lymphocytes # (Manual) Monocytes # (Manual) PT INR D-Dimer ABG pH POC ABG pCO2 POC ABG pO2 ABG pO2 60.7 L ABG HCO3 30.6 H ABG O2 Saturation 93.6 L ABG Base Excess 5.3 H ABG Hemoglobin ABG Oxyhemoglobin ABG Sodium ABG Potassium ABG Glucose Oxyhemoglobin 91.7 L Sodium Potassium Chloride Carbon Dioxide BUN Creatinine Glucose POC Glucose 169 H 122 H Lactic Acid Calcium Phosphorus Magnesium Ferritin Lactate Dehydrogenase C-Reactive Protein NT-Pro-B Natriuret Pep Total Protein Albumin Triglycerides Arterial Blood Glucose Ur Specific [place] Coronavirus (PCR) 03/21/21 03/21/21 03/21/21 17:25 22:41 23:52 WBC RBC Hgb Hct MCV MCHC RDW Plt Count Lymph % (Auto) [place] % (Auto) Lymph # (Auto) [place] # (Auto) Seg Neutrophils % Seg Neuts % (Manual) Lymphocytes % (Manual) Monocytes % (Manual) Nucleated RBC % Seg Neutrophils # Seg Neutrophils # Man Lymphocytes # (Manual) Monocytes # (Manual) PT INR D-Dimer ABG pH POC ABG pCO2 POC ABG pO2 ABG pO2 ABG HCO3 ABG O2 Saturation ABG Base Excess ABG Hemoglobin ABG Oxyhemoglobin ABG Sodium ABG Potassium ABG Glucose Oxyhemoglobin Sodium Potassium Chloride Carbon Dioxide BUN Creatinine Glucose POC Glucose 121 H 139 H 140 H Lactic Acid Calcium Phosphorus Magnesium Ferritin Lactate Dehydrogenase C-Reactive Protein NT-Pro-B Natriuret Pep Total Protein Albumin Triglycerides Arterial Blood Glucose Ur Specific [place] Coronavirus (PCR) 03/22/21 03/22/21 03/22/21 05:58 07:26 07:26 WBC RBC Hgb Hct MCV MCHC 31 L RDW 16.1 H Plt Count Lymph % (Auto) [place] % (Auto) Lymph # (Auto) [place] # (Auto) Seg Neutrophils % Seg Neuts % (Manual) Lymphocytes % (Manual) Monocytes % (Manual) Nucleated RBC % Seg Neutrophils # Seg Neutrophils # Man Lymphocytes # (Manual) Monocytes # (Manual) PT INR D-Dimer ABG pH POC ABG pCO2 POC ABG pO2 ABG pO2 ABG HCO3 ABG O2 Saturation ABG Base Excess ABG Hemoglobin ABG Oxyhemoglobin ABG Sodium ABG Potassium ABG Glucose Oxyhemoglobin Sodium Potassium Chloride 108.5 H Carbon Dioxide BUN 44 H Creatinine Glucose 120 H POC Glucose 131 H Lactic Acid Calcium Phosphorus 5.80 H Magnesium 2.80 H Ferritin Lactate Dehydrogenase C-Reactive Protein NT-Pro-B Natriuret Pep Total Protein Albumin Triglycerides 305 H Arterial Blood Glucose Ur Specific [place] Coronavirus (PCR) 03/22/21 03/22/21 03/22/21 09:38 11:15 16:01 WBC RBC Hgb Hct MCV MCHC RDW Plt Count Lymph % (Auto) [place] % (Auto) Lymph # (Auto) [place] # (Auto) Seg Neutrophils % Seg Neuts % (Manual) Lymphocytes % (Manual) Monocytes % (Manual) Nucleated RBC % Seg Neutrophils # Seg Neutrophils # Man Lymphocytes # (Manual) Monocytes # (Manual) PT INR D-Dimer ABG pH POC ABG pCO2 POC ABG pO2 ABG pO2 70.0 L ABG HCO3 30.0 H ABG O2 Saturation 94.6 L ABG Base Excess 3.6 H ABG Hemoglobin 13.5 L ABG Oxyhemoglobin ABG Sodium ABG Potassium ABG Glucose Oxyhemoglobin 92.5 L Sodium Potassium Chloride Carbon Dioxide BUN Creatinine Glucose POC Glucose 186 H 148 H Lactic Acid Calcium Phosphorus Magnesium Ferritin Lactate Dehydrogenase C-Reactive Protein NT-Pro-B Natriuret Pep Total Protein Albumin Triglycerides Arterial Blood Glucose Ur Specific [place] Coronavirus (PCR) 03/22/21 03/22/21 03/23/21 21:13 23:48 07:04 WBC 11.7 H RBC Hgb Hct MCV 95 H MCHC RDW 16.1 H Plt Count Lymph % (Auto) [place] % (Auto) Lymph # (Auto) [place] # (Auto) Seg Neutrophils % Seg Neuts % (Manual) Lymphocytes % (Manual) Monocytes % (Manual) Nucleated RBC % Seg Neutrophils # Seg Neutrophils # Man Lymphocytes # (Manual) Monocytes # (Manual) PT INR D-Dimer ABG pH POC ABG pCO2 POC ABG pO2 ABG pO2 ABG HCO3 ABG O2 Saturation ABG Base Excess ABG Hemoglobin ABG Oxyhemoglobin ABG Sodium ABG Potassium ABG Glucose Oxyhemoglobin Sodium Potassium Chloride Carbon Dioxide BUN Creatinine Glucose POC Glucose 121 H 114 H Lactic Acid Calcium Phosphorus Magnesium Ferritin Lactate Dehydrogenase C-Reactive Protein NT-Pro-B Natriuret Pep Total Protein Albumin Triglycerides Arterial Blood Glucose Ur Specific [place] Coronavirus (PCR) 03/23/21 03/23/21 03/23/21 07:04 08:35 11:19 WBC RBC Hgb Hct MCV MCHC RDW Plt Count Lymph % (Auto) [place] % (Auto) Lymph # (Auto) [place] # (Auto) Seg Neutrophils % Seg Neuts % (Manual) Lymphocytes % (Manual) Monocytes % (Manual) Nucleated RBC % Seg Neutrophils # Seg Neutrophils # Man Lymphocytes # (Manual) Monocytes # (Manual) PT INR D-Dimer ABG pH 7.345 L POC ABG pCO2 POC ABG pO2 ABG pO2 167.9 H ABG HCO3 32.2 H ABG O2 Saturation ABG Base Excess 4.8 H ABG Hemoglobin 13.4 L ABG Oxyhemoglobin ABG Sodium ABG Potassium ABG Glucose Oxyhemoglobin Sodium 148 H Potassium Chloride 111.3 H Carbon Dioxide 31 H BUN 31 H Creatinine Glucose 131 H POC Glucose 165 H Lactic Acid Calcium Phosphorus Magnesium 2.50 H Ferritin Lactate Dehydrogenase C-Reactive Protein NT-Pro-B Natriuret Pep Total Protein Albumin Triglycerides Arterial Blood Glucose Ur Specific [place] Coronavirus (PCR) 03/23/21 03/23/21 03/24/21 16:48 20:52 00:07 WBC RBC Hgb Hct MCV MCHC RDW Plt Count Lymph % (Auto) [place] % (Auto) Lymph # (Auto) [place] # (Auto) Seg Neutrophils % Seg Neuts % (Manual) Lymphocytes % (Manual) Monocytes % (Manual) Nucleated RBC % Seg Neutrophils # Seg Neutrophils # Man Lymphocytes # (Manual) Monocytes # (Manual) PT INR D-Dimer ABG pH POC ABG pCO2 POC ABG pO2 ABG pO2 ABG HCO3 ABG O2 Saturation ABG Base Excess ABG Hemoglobin ABG Oxyhemoglobin ABG Sodium ABG Potassium ABG Glucose Oxyhemoglobin Sodium Potassium Chloride Carbon Dioxide BUN Creatinine Glucose POC Glucose 160 H 127 H 147 H Lactic Acid Calcium Phosphorus Magnesium Ferritin Lactate Dehydrogenase C-Reactive Protein NT-Pro-B Natriuret Pep Total Protein Albumin Triglycerides Arterial Blood Glucose Ur Specific [place] Coronavirus (PCR) 03/24/21 03/24/21 03/24/21 04:34 04:34 05:20 WBC 13.3 H RBC Hgb Hct MCV MCHC 31 L RDW 16.1 H Plt Count Lymph % (Auto) [place] % (Auto) Lymph # (Auto) [place] # (Auto) Seg Neutrophils % Seg Neuts % (Manual) Lymphocytes % (Manual) Monocytes % (Manual) Nucleated RBC % Seg Neutrophils # Seg Neutrophils # Man Lymphocytes # (Manual) Monocytes # (Manual) PT INR D-Dimer ABG pH POC ABG pCO2 POC ABG pO2 ABG pO2 ABG HCO3 ABG O2 Saturation ABG Base Excess ABG Hemoglobin ABG Oxyhemoglobin ABG Sodium ABG Potassium ABG Glucose Oxyhemoglobin Sodium Potassium 5.2 H Chloride Carbon Dioxide BUN 28 H Creatinine 0.7 L Glucose 152 H POC Glucose 141 H Lactic Acid Calcium Phosphorus Magnesium Ferritin Lactate Dehydrogenase C-Reactive Protein NT-Pro-B Natriuret Pep Total Protein Albumin Triglycerides Arterial Blood Glucose Ur Specific [place] Coronavirus (PCR) 03/24/21 03/24/21 03/24/21 09:40 11:38 16:45 WBC RBC Hgb Hct MCV MCHC RDW Plt Count Lymph % (Auto) [place] % (Auto) Lymph # (Auto) [place] # (Auto) Seg Neutrophils % Seg Neuts % (Manual) Lymphocytes % (Manual) Monocytes % (Manual) Nucleated RBC % Seg Neutrophils # Seg Neutrophils # Man Lymphocytes # (Manual) Monocytes # (Manual) PT INR D-Dimer ABG pH POC ABG pCO2 POC ABG pO2 ABG pO2 ABG HCO3 ABG O2 Saturation ABG Base Excess ABG Hemoglobin ABG Oxyhemoglobin ABG Sodium ABG Potassium ABG Glucose Oxyhemoglobin Sodium Potassium Chloride Carbon Dioxide BUN Creatinine Glucose POC Glucose 126 H 136 H 118 H Lactic Acid Calcium Phosphorus Magnesium Ferritin Lactate Dehydrogenase C-Reactive Protein NT-Pro-B Natriuret Pep Total Protein Albumin Triglycerides Arterial Blood Glucose Ur Specific [place] Coronavirus (PCR) 03/24/21 03/24/21 03/25/21 21:03 23:49 04:32 WBC RBC Hgb Hct MCV MCHC RDW 16.1 H Plt Count 121 L Lymph % (Auto) [place] % (Auto) Lymph # (Auto) [place] # (Auto) Seg Neutrophils % Seg Neuts % (Manual) Lymphocytes % (Manual) Monocytes % (Manual) Nucleated RBC % Seg Neutrophils # Seg Neutrophils # Man Lymphocytes # (Manual) Monocytes # (Manual) PT INR D-Dimer ABG pH POC ABG pCO2 POC ABG pO2 ABG pO2 ABG HCO3 ABG O2 Saturation ABG Base Excess ABG Hemoglobin ABG Oxyhemoglobin ABG Sodium ABG Potassium ABG Glucose Oxyhemoglobin Sodium Potassium Chloride Carbon Dioxide BUN Creatinine Glucose POC Glucose 116 H 125 H Lactic Acid Calcium Phosphorus Magnesium Ferritin Lactate Dehydrogenase C-Reactive Protein NT-Pro-B Natriuret Pep Total Protein Albumin Triglycerides Arterial Blood Glucose Ur Specific [place] Coronavirus (PCR) 03/25/21 03/25/21 03/25/21 04:32 05:21 09:29 WBC RBC Hgb Hct MCV MCHC RDW Plt Count Lymph % (Auto) [place] % (Auto) Lymph # (Auto) [place] # (Auto) Seg Neutrophils % Seg Neuts % (Manual) Lymphocytes % (Manual) Monocytes % (Manual) Nucleated RBC % Seg Neutrophils # Seg Neutrophils # Man Lymphocytes # (Manual) Monocytes # (Manual) PT INR D-Dimer ABG pH POC ABG pCO2 POC ABG pO2 ABG pO2 ABG HCO3 ABG O2 Saturation ABG Base Excess ABG Hemoglobin ABG Oxyhemoglobin ABG Sodium ABG Potassium ABG Glucose Oxyhemoglobin Sodium 135 L D Potassium Chloride Carbon Dioxide BUN 25 H Creatinine 0.7 L Glucose 168 H POC Glucose 149 H 115 H Lactic Acid Calcium Phosphorus Magnesium Ferritin Lactate Dehydrogenase C-Reactive Protein NT-Pro-B Natriuret Pep Total Protein Albumin Triglycerides Arterial Blood Glucose Ur Specific [place] Coronavirus (PCR) 03/25/21 03/25/21 03/25/21 12:26 12:35 23:53 WBC RBC Hgb Hct MCV MCHC RDW Plt Count Lymph % (Auto) [place] % (Auto) Lymph # (Auto) [place] # (Auto) Seg Neutrophils % Seg Neuts % (Manual) Lymphocytes % (Manual) Monocytes % (Manual) Nucleated RBC % Seg Neutrophils # Seg Neutrophils # Man Lymphocytes # (Manual) Monocytes # (Manual) PT INR D-Dimer ABG pH POC ABG pCO2 POC ABG pO2 ABG pO2 100.5 H ABG HCO3 33.6 H ABG O2 Saturation ABG Base Excess 6.4 H ABG Hemoglobin 12.0 L ABG Oxyhemoglobin ABG Sodium ABG Potassium ABG Glucose Oxyhemoglobin Sodium Potassium Chloride Carbon Dioxide BUN Creatinine Glucose POC Glucose 108 H 137 H Lactic Acid Calcium Phosphorus Magnesium Ferritin Lactate Dehydrogenase C-Reactive Protein NT-Pro-B Natriuret Pep Total Protein Albumin Triglycerides Arterial Blood Glucose Ur Specific [place] Coronavirus (PCR) 03/26/21 03/26/21 03/26/21 05:14 07:09 07:09 WBC RBC Hgb Hct MCV MCHC RDW 16.5 H Plt Count 139 L Lymph % (Auto) [place] % (Auto) Lymph # (Auto) [place] # (Auto) Seg Neutrophils % Seg Neuts % (Manual) Lymphocytes % (Manual) Monocytes % (Manual) Nucleated RBC % Seg Neutrophils # Seg Neutrophils # Man Lymphocytes # (Manual) Monocytes # (Manual) PT INR D-Dimer ABG pH POC ABG pCO2 POC ABG pO2 ABG pO2 ABG HCO3 ABG O2 Saturation ABG Base Excess ABG Hemoglobin ABG Oxyhemoglobin ABG Sodium ABG Potassium ABG Glucose Oxyhemoglobin Sodium Potassium Chloride Carbon Dioxide BUN 22 H Creatinine 0.7 L Glucose 108 H POC Glucose 116 H Lactic Acid Calcium Phosphorus Magnesium Ferritin Lactate Dehydrogenase C-Reactive Protein NT-Pro-B Natriuret Pep Total Protein Albumin Triglycerides Arterial Blood Glucose Ur Specific [place] Coronavirus (PCR) 03/26/21 03/26/21 03/26/21 09:51 11:15 16:59 WBC RBC Hgb Hct MCV MCHC RDW Plt Count Lymph % (Auto) [place] % (Auto) Lymph # (Auto) [place] # (Auto) Seg Neutrophils % Seg Neuts % (Manual) Lymphocytes % (Manual) Monocytes % (Manual) Nucleated RBC % Seg Neutrophils # Seg Neutrophils # Man Lymphocytes # (Manual) Monocytes # (Manual) PT INR D-Dimer ABG pH POC ABG pCO2 POC ABG pO2 ABG pO2 ABG HCO3 ABG O2 Saturation ABG Base Excess ABG Hemoglobin ABG Oxyhemoglobin ABG Sodium ABG Potassium ABG Glucose Oxyhemoglobin Sodium Potassium Chloride Carbon Dioxide BUN Creatinine Glucose POC Glucose 107 H 119 H 174 H Lactic Acid Calcium Phosphorus Magnesium Ferritin Lactate Dehydrogenase C-Reactive Protein NT-Pro-B Natriuret Pep Total Protein Albumin Triglycerides Arterial Blood Glucose Ur Specific [place] Coronavirus (PCR) 03/26/21 03/27/21 03/27/21 22:18 07:08 10:28 WBC RBC Hgb Hct MCV 95 H MCHC RDW 16.2 H Plt Count 134 L Lymph % (Auto) [place] % (Auto) Lymph # (Auto) [place] # (Auto) Seg Neutrophils % Seg Neuts % (Manual) Lymphocytes % (Manual) Monocytes % (Manual) Nucleated RBC % Seg Neutrophils # Seg Neutrophils # Man Lymphocytes # (Manual) Monocytes # (Manual) PT INR D-Dimer ABG pH POC ABG pCO2 POC ABG pO2 ABG pO2 ABG HCO3 ABG O2 Saturation ABG Base Excess ABG Hemoglobin ABG Oxyhemoglobin ABG Sodium ABG Potassium ABG Glucose Oxyhemoglobin Sodium Potassium Chloride Carbon Dioxide BUN Creatinine Glucose POC Glucose 107 H 52 L Lactic Acid Calcium Phosphorus Magnesium Ferritin Lactate Dehydrogenase C-Reactive Protein NT-Pro-B Natriuret Pep Total Protein Albumin Triglycerides Arterial Blood Glucose Ur Specific [place] Coronavirus (PCR) 03/27/21 03/27/21 03/27/21 10:28 11:45 17:39 WBC RBC Hgb Hct MCV MCHC RDW Plt Count Lymph % (Auto) [place] % (Auto) Lymph # (Auto) [place] # (Auto) Seg Neutrophils % Seg Neuts % (Manual) Lymphocytes % (Manual) Monocytes % (Manual) Nucleated RBC % Seg Neutrophils # Seg Neutrophils # Man Lymphocytes # (Manual) Monocytes # (Manual) PT INR D-Dimer ABG pH POC ABG pCO2 POC ABG pO2 ABG pO2 ABG HCO3 ABG O2 Saturation ABG Base Excess ABG Hemoglobin ABG Oxyhemoglobin ABG Sodium ABG Potassium ABG Glucose Oxyhemoglobin Sodium 136 L Potassium Chloride Carbon Dioxide BUN Creatinine 0.7 L Glucose 150 H POC Glucose 121 H 165 H Lactic Acid Calcium Phosphorus Magnesium Ferritin Lactate Dehydrogenase C-Reactive Protein NT-Pro-B Natriuret Pep Total Protein Albumin Triglycerides Arterial Blood Glucose Ur Specific [place] Coronavirus (PCR) 03/28/21 03/28/21 03/28/21 07:14 11:42 18:22 WBC RBC Hgb Hct MCV MCHC RDW 16.4 H Plt Count Lymph % (Auto) [place] % (Auto) Lymph # (Auto) [place] # (Auto) Seg Neutrophils % Seg Neuts % (Manual) Lymphocytes % (Manual) Monocytes % (Manual) Nucleated RBC % Seg Neutrophils # Seg Neutrophils # Man Lymphocytes # (Manual) Monocytes # (Manual) PT INR D-Dimer ABG pH POC ABG pCO2 POC ABG pO2 ABG pO2 ABG HCO3 ABG O2 Saturation ABG Base Excess ABG Hemoglobin ABG Oxyhemoglobin ABG Sodium ABG Potassium ABG Glucose Oxyhemoglobin Sodium Potassium Chloride Carbon Dioxide BUN Creatinine Glucose POC Glucose 145 H 169 H Lactic Acid Calcium Phosphorus Magnesium Ferritin Lactate Dehydrogenase C-Reactive Protein NT-Pro-B Natriuret Pep Total Protein Albumin Triglycerides Arterial Blood Glucose Ur Specific [place] Coronavirus (PCR) 03/28/21 03/29/21 03/29/21 23:39 04:50 04:50 WBC RBC Hgb 11.0 L Hct 34.9 L MCV MCHC RDW 15.9 H Plt Count Lymph % (Auto) [place] % (Auto) Lymph # (Auto) [place] # (Auto) Seg Neutrophils % Seg Neuts % (Manual) Lymphocytes % (Manual) Monocytes % (Manual) Nucleated RBC % Seg Neutrophils # Seg Neutrophils # Man Lymphocytes # (Manual) Monocytes # (Manual) PT INR D-Dimer ABG pH POC ABG pCO2 POC ABG pO2 ABG pO2 ABG HCO3 ABG O2 Saturation ABG Base Excess ABG Hemoglobin ABG Oxyhemoglobin ABG Sodium ABG Potassium ABG Glucose Oxyhemoglobin Sodium Potassium Chloride Carbon Dioxide 34 H BUN Creatinine 0.6 L Glucose 152 H POC Glucose 139 H Lactic Acid Calcium Phosphorus Magnesium Ferritin Lactate Dehydrogenase C-Reactive Protein NT-Pro-B Natriuret Pep Total Protein Albumin Triglycerides Arterial Blood Glucose Ur Specific [place] Coronavirus (PCR) 03/29/21 03/29/21 03/29/21 05:25 11:34 18:02 WBC RBC Hgb Hct MCV MCHC RDW Plt Count Lymph % (Auto) [place] % (Auto) Lymph # (Auto) [place] # (Auto) Seg Neutrophils % Seg Neuts % (Manual) Lymphocytes % (Manual) Monocytes % (Manual) Nucleated RBC % Seg Neutrophils # Seg Neutrophils # Man Lymphocytes # (Manual) Monocytes # (Manual) PT INR D-Dimer ABG pH POC ABG pCO2 POC ABG pO2 ABG pO2 ABG HCO3 ABG O2 Saturation ABG Base Excess ABG Hemoglobin ABG Oxyhemoglobin ABG Sodium ABG Potassium ABG Glucose Oxyhemoglobin Sodium Potassium Chloride Carbon Dioxide BUN Creatinine Glucose POC Glucose 127 H 169 H 173 H Lactic Acid Calcium Phosphorus Magnesium Ferritin Lactate Dehydrogenase C-Reactive Protein NT-Pro-B Natriuret Pep Total Protein Albumin Triglycerides Arterial Blood Glucose Ur Specific [place] Coronavirus (PCR) 03/29/21 03/30/21 03/30/21 21:42 00:01 05:36 WBC RBC Hgb Hct MCV MCHC RDW 16.7 H Plt Count Lymph % (Auto) [place] % (Auto) Lymph # (Auto) [place] # (Auto) Seg Neutrophils % Seg Neuts % (Manual) Lymphocytes % (Manual) Monocytes % (Manual) Nucleated RBC % Seg Neutrophils # Seg Neutrophils # Man Lymphocytes # (Manual) Monocytes # (Manual) PT INR D-Dimer ABG pH POC ABG pCO2 POC ABG pO2 ABG pO2 ABG HCO3 ABG O2 Saturation ABG Base Excess ABG Hemoglobin ABG Oxyhemoglobin ABG Sodium ABG Potassium ABG Glucose Oxyhemoglobin Sodium Potassium Chloride Carbon Dioxide BUN Creatinine Glucose POC Glucose 184 H 161 H Lactic Acid Calcium Phosphorus Magnesium Ferritin Lactate Dehydrogenase C-Reactive Protein NT-Pro-B Natriuret Pep Total Protein Albumin Triglycerides Arterial Blood Glucose Ur Specific [place] Coronavirus (PCR) 03/30/21 03/30/21 03/30/21 05:36 06:03 11:32 WBC RBC Hgb Hct MCV MCHC RDW Plt Count Lymph % (Auto) [place] % (Auto) Lymph # (Auto) [place] # (Auto) Seg Neutrophils % Seg Neuts % (Manual) Lymphocytes % (Manual) Monocytes % (Manual) Nucleated RBC % Seg Neutrophils # Seg Neutrophils # Man Lymphocytes # (Manual) Monocytes # (Manual) PT INR D-Dimer ABG pH POC ABG pCO2 POC ABG pO2 ABG pO2 ABG HCO3 ABG O2 Saturation ABG Base Excess ABG Hemoglobin ABG Oxyhemoglobin ABG Sodium ABG Potassium ABG Glucose Oxyhemoglobin Sodium Potassium Chloride Carbon Dioxide BUN Creatinine 0.5 L Glucose 127 H POC Glucose 130 H 183 H Lactic Acid Calcium Phosphorus Magnesium Ferritin Lactate Dehydrogenase C-Reactive Protein NT-Pro-B Natriuret Pep Total Protein Albumin Triglycerides Arterial Blood Glucose Ur Specific [place] Coronavirus (PCR) 03/30/21 03/30/21 03/30/21 15:00 16:23 21:07 WBC RBC Hgb Hct MCV MCHC RDW Plt Count Lymph % (Auto) [place] % (Auto) Lymph # (Auto) [place] # (Auto) Seg Neutrophils % Seg Neuts % (Manual) Lymphocytes % (Manual) Monocytes % (Manual) Nucleated RBC % Seg Neutrophils # Seg Neutrophils # Man Lymphocytes # (Manual) Monocytes # (Manual) PT INR D-Dimer ABG pH POC ABG pCO2 POC ABG pO2 ABG pO2 67.2 L ABG HCO3 34.9 H ABG O2 Saturation ABG Base Excess 9.1 H ABG Hemoglobin 11.6 L ABG Oxyhemoglobin ABG Sodium ABG Potassium ABG Glucose Oxyhemoglobin 93.0 L Sodium Potassium Chloride Carbon Dioxide BUN Creatinine Glucose POC Glucose 162 H 146 H Lactic Acid Calcium Phosphorus Magnesium Ferritin Lactate Dehydrogenase C-Reactive Protein NT-Pro-B Natriuret Pep Total Protein Albumin Triglycerides Arterial Blood Glucose Ur Specific [place] Coronavirus (PCR) 03/30/21 03/31/21 03/31/21 23:23 05:44 11:19 WBC RBC Hgb Hct MCV MCHC RDW Plt Count Lymph % (Auto) [place] % (Auto) Lymph # (Auto) [place] # (Auto) Seg Neutrophils % Seg Neuts % (Manual) Lymphocytes % (Manual) Monocytes % (Manual) Nucleated RBC % Seg Neutrophils # Seg Neutrophils # Man Lymphocytes # (Manual) Monocytes # (Manual) PT INR D-Dimer ABG pH POC ABG pCO2 POC ABG pO2 ABG pO2 ABG HCO3 ABG O2 Saturation ABG Base Excess ABG Hemoglobin ABG Oxyhemoglobin ABG Sodium ABG Potassium ABG Glucose Oxyhemoglobin Sodium Potassium Chloride Carbon Dioxide BUN Creatinine Glucose POC Glucose 138 H 180 H 178 H Lactic Acid Calcium Phosphorus Magnesium Ferritin Lactate Dehydrogenase C-Reactive Protein NT-Pro-B Natriuret Pep Total Protein Albumin Triglycerides Arterial Blood Glucose Ur Specific [place] Coronavirus (PCR) 03/31/21 03/31/21 03/31/21 12:50 13:30 16:06 WBC RBC Hgb 11.3 L Hct 35.1 L MCV MCHC RDW 16.5 H Plt Count Lymph % (Auto) 7.6 L [place] % (Auto) 9.5 H Lymph # (Auto) 0.6 L [place] # (Auto) Seg Neutrophils % 78.3 H Seg Neuts % (Manual) Lymphocytes % (Manual) Monocytes % (Manual) Nucleated RBC % Seg Neutrophils # Seg Neutrophils # Man Lymphocytes # (Manual) Monocytes # (Manual) PT INR D-Dimer ABG pH POC ABG pCO2 POC ABG pO2 ABG pO2 99.4 H ABG HCO3 34.9 H ABG O2 Saturation ABG Base Excess 8.4 H ABG Hemoglobin 11.8 L ABG Oxyhemoglobin ABG Sodium ABG Potassium ABG Glucose Oxyhemoglobin Sodium Potassium Chloride Carbon Dioxide BUN Creatinine Glucose POC Glucose 197 H Lactic Acid Calcium Phosphorus Magnesium Ferritin Lactate Dehydrogenase C-Reactive Protein NT-Pro-B Natriuret Pep Total Protein Albumin Triglycerides Arterial Blood Glucose Ur Specific [place] Coronavirus (PCR) 03/31/21 04/01/21 04/01/21 20:51 05:37 07:16 WBC RBC 3.39 L Hgb 10.5 L Hct 31.6 L MCV MCHC RDW 16.1 H Plt Count Lymph % (Auto) [place] % (Auto) Lymph # (Auto) [place] # (Auto) Seg Neutrophils % Seg Neuts % (Manual) Lymphocytes % (Manual) Monocytes % (Manual) Nucleated RBC % Seg Neutrophils # Seg Neutrophils # Man Lymphocytes # (Manual) Monocytes # (Manual) PT INR D-Dimer ABG pH POC ABG pCO2 POC ABG pO2 ABG pO2 ABG HCO3 ABG O2 Saturation ABG Base Excess ABG Hemoglobin ABG Oxyhemoglobin ABG Sodium ABG Potassium ABG Glucose Oxyhemoglobin Sodium Potassium Chloride Carbon Dioxide BUN Creatinine Glucose POC Glucose 140 H 128 H Lactic Acid Calcium Phosphorus Magnesium Ferritin Lactate Dehydrogenase C-Reactive Protein NT-Pro-B Natriuret Pep Total Protein Albumin Triglycerides Arterial Blood Glucose Ur Specific [place] Coronavirus (PCR) 04/01/21 04/01/21 07:16 11:52 WBC RBC Hgb Hct MCV MCHC RDW Plt Count Lymph % (Auto) [place] % (Auto) Lymph # (Auto) [place] # (Auto) Seg Neutrophils % Seg Neuts % (Manual) Lymphocytes % (Manual) Monocytes % (Manual) Nucleated RBC % Seg Neutrophils # Seg Neutrophils # Man Lymphocytes # (Manual) Monocytes # (Manual) PT INR D-Dimer ABG pH POC ABG pCO2 POC ABG pO2 ABG pO2 ABG HCO3 ABG O2 Saturation ABG Base Excess ABG Hemoglobin ABG Oxyhemoglobin ABG Sodium ABG Potassium ABG Glucose Oxyhemoglobin Sodium Potassium Chloride Carbon Dioxide BUN Creatinine 0.6 L Glucose 131 H POC Glucose 182 H Lactic Acid Calcium 8.3 L Phosphorus Magnesium Ferritin Lactate Dehydrogenase C-Reactive Protein NT-Pro-B Natriuret Pep Total Protein Albumin Triglycerides Arterial Blood Glucose Ur Specific [place] Coronavirus (PCR) Chest x-ray: pending Allied health notes reviewed: nursing
[2021-04-01] MEDS: INSULIN GLARGINE 100 UNITS/ML SUB-Q SCH (21:30)
[2021-04-02] MEDS: chlordiazePOXIDE 25 MG CAP PO SCH ×5 (00:29→23:29)
[2021-04-02] MEDS: fentaNYL DRIP Premix 2,000 MCG/100 ML BAG IV SCH ×2 (04:52→20:34)
[2021-04-02] MEDS ORDERED: METOPROLOL TARTRATE 5 MG/5 ML INJ IV ONE (05:16)
[2021-04-02 05:17] LABS: Hematocrit 33.9 % (35.5-45.6); Hemoglobin 10.8 gm/dl (11.8-15.2); Mean Corpuscular HGB Conc 32 % (32-34); Mean Corpuscular Volume 94 fl (84-94); Platelet Count 242 K/mm3 (140-440); Red Blood Count 3.62 M/mm3 (3.65-5.03)
[2021-04-02 05:38] LABS: Blood Urea Nitrogen 18 mg/dL (9-20); Calcium 8.5 mg/dL (8.4-10.2); Hemolysis Index 0
[2021-04-02 05:42] LABS: BUN/Creatinine Ratio 30
[2021-04-02] MEDS: hydrALAZINE 25 MG TAB PO SCH ×3 (07:11→21:10)
[2021-04-02] MEDS: CEFEPIME/NS 2 GM/100 ML 2 GM/100 ML BAG IV SCH ×3 (08:00→23:24)
[2021-04-02] MEDS: BUDESONIDE 0.25 MG/2 ML NEBU IH SCH ×2 (08:36→20:06)
[2021-04-02] MEDS: ARFORMOTEROL 15 MCG/2 ML NEBU IH SCH ×2 (08:36→20:06)
[2021-04-02] MEDS: SENNOSIDES/DOCUSATE SODIUM 8.6/50 MG TAB FEEDTUBE SCH ×2 (10:04→21:10)
[2021-04-02] MEDS: QUEtiapine 100 MG TAB PO SCH ×2 (10:04→21:11)
[2021-04-02] MEDS: ASCORBIC ACID 500 MG TAB PO SCH ×2 (10:04→21:10)
[2021-04-02] MEDS: predniSONE 10 MG TAB PO SCH (10:04)
[2021-04-02] MEDS: POLYETHYLENE GLYCOL 3350 17 GM POWDER FEEDTUBE SCH (10:04)
[2021-04-02] MEDS: FUROSEMIDE 20 MG/2 ML INJ IV SCH (10:05)
[2021-04-02] MEDS: amLODIPine 5 MG TAB PO SCH (10:05)
[2021-04-02] MEDS: ENOXAPARIN 30 MG/0.3 ML INJ SUB-Q SCH ×2 (10:05→21:11)
[2021-04-02] MEDS: FAMOTIDINE 20 MG TAB FEEDTUBE SCH ×2 (10:05→21:13)
[2021-04-02] MEDS: DOXAZOSIN 1 MG TAB PO SCH (10:06)
[2021-04-02] MEDS: METOPROLOL TARTRATE 25 MG TAB PO SCH ×2 (10:06→21:11)
[2021-04-02] MEDS: ZINC SULFATE 220 MG CAP PO SCH ×2 (10:08→21:12)
--- NOTE | 2021-04-02 11:31 | Progress Note ---
<DEBBY ELLISON - Last Filed: 04/02/21 17:02> Assessment and Plan Assessment and plan: This is a 61-year-old male with past medical history of HTN and DM admitted for sepsis and acute hypoxic respiratory failure 2/2 COVID pneumonia requiring ventilatory support. Hospital Course to Date: 03/09: The patient was seen and evaluated today, and he was found to be hemodynamically stable. The patient is currently on BiPAP for possible COVID-19 pneumonia. He was started on Lovenox 1mg/kg for DVT ppx in the setting of d- dimer > 10,000. Infectious Disease was consulted. The patient is pending a TTE. 03/10: No acute events overnight, patient was intubated in the afternoon transferred to ICU 03/11: Patient started on Lantus, free water flushes increased, propofol drip resumed and oral antihypertensive added. 03/12: lantus increased, k at 5, will monitor. I updated his family and his stated that he is not vaccinated. He does have HTN and she will call the RN to update home medications. She did say he takes bystolic and amlopine. She inquired about ventilator and lab work. She had no further questions. 03/13: KVNG overnight. Patient remains hyperglycemic, basal insulin adjusted and increased to Q12hrs. Patient is overall net positive since admit X1 dose of IV lasix, repeat BMP this afternoon. 03/14: Failed SAT this am due to increase agitation, tachycardia and hypertension. Remains on propofol and fentanyl gtt. Hyperkalemia treated with PO kayaxalate. Patient responded to IV lasix yesterday additional dose again today for a net negative balance. Repeat BMP this afternoon. Insulin adjusted for hyperglycemia. 03/15: Remains encephalopathic, not following commansd. Orders placed for CT head/Brain and Neuro consulted. Rectal bleeding subsided, most likely due to hemorrhoids. H&H is stable will continue to monitor. Kayaxexalate for high K, repeat labs 4 to 6hrs post treatment. 03/16: Still agiated this am, CT head with no acute Abn. CXR and ABG noted- evolving pna and worsening hypoxia, now with low grade fevers. Sputum culture ordered, IV Abx added, ID on cosult. 03/17: This am ABG noted, hypoxia improved. Continue to wean FiO2 as tolerated. Still with low grade fevers, on IV Abx per ID. Still with periods of confusion despite sedation, seroquel increased. F/u CXR in the am 03/18: still very agitated especially when off sedation, with hypertension and tachycardia. Continue sedation for RASS -2, PRN antihypertensive for SPB greater than 160. This febrile this am, continue current IV abx per ID 03/19: Patient afebrile overnight, continue IV Abx per ID. ABG also improved this am, continue to wean FIO2 as tolerated. PRN antihypertensive for hypertension. 03/20: Hyperkalemia treated with Kayexalate, Good discontinued, vancomycin and cefepime stopped started Bactrim by ID. Steroid taper started. 03/21: BB started for hypertension, Seroquel increased for agitation and Librium started no acute events reported overnight. [facility] made vent changes 03/22: Adjustment to anxiolytics, respiratory rate on ventilator per [facility]. Patient noted to have bleeding hemorrhoids with clot, requested RN to remove bowel management system and will order Preparation H. 03/23: Given no confirmed DVT or PE (only superficial thrombus noted on Dopplers) therapeutic Lovenox changed to prophylactic Lovenox. Started on doxazosin to help with retention. Consulted surgery for tracheostomy and propofol discontinued. 03/24: Surgery consult completed, patient changed to prophylaxis anticoagulation, started on doxazosin yesterday with plans to remove Good catheter in 48 hours. Patient with slight hypokalemia today and given Kayexalate. No acute events reported overnight. 03/25: No acute events reported overnight. Patient remains on fentanyl drip and on CPAP trial this morning. 03/26: no acute events reported overnight. placed on CPAP this AM, remains on fent/librium. scheduled for trach/peg this week. 03/27: Hypoglycemic this am, will decreased lantus to Qhs. Plan for possible Trach and Peg by Gen Surg this am. Case management to arrange possible LTAC placement 03/28: KVNG overnight. Tolerating PST this am. Plan for trach and PEG tomorrow by Gen. Surgery, NPO after midnight. 03/29: No significant changes overnight. Plan for trach and Peg today. Case management to arrange possible LTAC placement 03/30. S/p Trach and PEG, no complications noted. High residual yesterday despite NPO status, reglan added X2 days. Per RN no residual this am, patient is tolerating TF. Continue to advance TF as tolerated. Norvasc added for hypertension. Pitting edema also appreciated, some diuretic might be beneficial, will d/w CCM. Continue daily PST as tolerated. 03/31: Patient remains on the vent still on fentanyl gtt with periods of agitation. PRN analgesia added, plan to start weaning off fentanyl gtt. Febrile this am, completed IV abx course. Will panculture for now, ID is also following. 04/01: Still febrile overnight, cultures result pending, continue IV ABx per ID. Failed PST this am. Continue daily PST and vent wean per CCM. Case management to arrange possible placement. 04/02: KVNG overnight. Fevers improved overnight, continue to follow cultures data, IV ABx per ID. Continue daily PST and wean vent as per [facility]. Assessment and Plan #Acute Hypoxic Respiratory Failure #COVID Pneumonia - Intubated on 03/10 due to worsen hypoxia on BIPAP - 2/2 s/p Tracheostomy - Vent setting:PRVC-45%,8,12,450 - No ABG this am - CCM consulted, appreciate recommendations - Continue IV Steroids and Nebs per CCM - keep patient net negative for better lung compliance - VAP bundle addressed - Aspiration precaution HOB above 30 - Daily SBT and SAT trials as tolerated - Daily ABG and CXR - Continue SPO2 monitoring for SPO2 goal above 92% #Sepsis #COVID Pneumonia #Leukocytosis #Lactic Acidosis- Resolved - COVID PCR positive - UA neg, Blood cultures and Sputum culture NGTD - repeat Bculture NGTD, 03/17 Sputum Cult + Stenotrophomonas - Infectious disease consulted, appreciate recommendation - S/p Actemra 03/10/2021 - Completed X5days course of IV remdesivir - IV abx per ID - Monitor WBC and temperature curve - Trend CBC #Neuro:Acute Encephalopathy - Intubated and sedated on fentanyl RASS -2 - CT head/brain no acute Abn. - On Seroquel and Librium - Avoid benzodiazepine to reduce the possibility of delirium - Prn analgesia for CPOT greater than 3 - Maintenance of sleep-wake cycle - Neurology on consult #CV: Hypertension - High BP overnight - 03/09 Echocardiogram shows a mildly dilated ascending aorta, normal LV systolic function, mild concentric LVH, LVEF 60 to 65% - Continue current antihypertensive regimen - Norvasc added for better control - PRN Labetalol for SBP above 160 - Continue Blood pressure monitoring per protocol #Hyponatremia - FWF adjusted - Strict intake and output - Avoid nephrotoxic medications; Renally dose medications - Good in place - Monitor and replace electrolytes as needed -Trend BMP #Elevated D-dimer - Most likely due to COVID - Bilateral lower extremity ultrasounds negative for DVT, superficial thrombus in left gastrocnemius vein - CTA chest shows no gross pulm embolism - H&H stable - Continue AC- Lovenox SubQ - SCDs to BLE while in bed - Transfuse hemoglobin less than 7 - Monitor for signs of bleeding #Endo:Type 2 DM - Hypoglycemic this am - Continue high dose SSI Q6hrs - Lantus qHs - Avoid Hypoglycemia The high probability of a clinically significant, sudden or life threatening deterioration of the [Respiratory] system(s) required my full and direct attention, intervention and personal management. The aggregate critical care time was [60] minutes. This time is in addition to time spent performing reported procedures but includes the following: [x] Data Review and interpretation [x] Patient assessment and monitoring of vital signs [x] Documentation [x] Medication orders and management Disposition Plan: ICU Total Time Spent with Patient (Minutes): 60 History Interval history: Patient seen and examined at the bedside. Remains on the vent and on fentanyl gtt. KVNG overnight Hospitalist Physical - Constitutional Vitals: Temp Pulse Resp BP Pulse Ox 100.3 F H 116 H 21 135/78 93 04/02/21 08:00 04/02/21 10:16 04/02/21 10:16 04/02/21 10:16 04/02/21 10:16 General appearance: Present: no acute distress, well-nourished, obese, other (On the vent, on sedation) - EENT Eyes: Present: PERRL - Respiratory Respiratory effort: normal Respiratory: bilateral: rhonchi - Cardiovascular Rhythm: regular Heart Sounds: Present: S1 & S2 - Extremities Extremities: no ischemia, pulses intact, pulses symmetrical Extremity abnormal: edema - Peripheral Assessment Generalized Edema Type: Non-pitting Edema Degree: 1+ Capillary Refill: < 3 seconds Skin Temperature: Warm Peripheral Pulses: within normal limits - Abdominal General gastrointestinal: soft, non-distended, normal bowel sounds - Integumentary Integumentary: Present: warm, dry - Psychiatric Psychiatric: other (On the vent, on sedation) - Neurologic Neurologic: other (On the vent, on sedation) - Allied Health Allied health notes reviewed: nursing Results - Labs CBC & Chem 7: 04/02/21 04:26 04/02/21 04:26 Labs: Laboratory Last Values WBC 7.0 K/mm3 (4.5-11.0) 04/02/21 04:26 RBC 3.62 M/mm3 (3.65-5.03) L 04/02/21 04:26 Hgb 10.8 gm/dl (11.8-15.2) L 04/02/21 04:26 Hct 33.9 % (35.5-45.6) L 04/02/21 04:26 MCV 94 fl (84-94) 04/02/21 04:26 MCH 30 pg (28-32) 04/02/21 04:26 MCHC 32 % (32-34) 04/02/21 04:26 RDW 16.0 % (13.2-15.2) H 04/02/21 04:26 Plt Count 242 K/mm3 (140-440) 04/02/21 04:26 Lymph % (Auto) 7.6 % (13.4-35.0) L 03/31/21 13:30 [place] % (Auto) 9.5 % (0.0-7.3) H 03/31/21 13:30 Eos % (Auto) 4.1 % (0.0-4.3) 03/31/21 13:30 Baso % (Auto) 0.5 % (0.0-1.8) 03/31/21 13:30 Lymph # (Auto) 0.6 K/mm3 (1.2-5.4) L 03/31/21 13:30 [place] # (Auto) 0.7 K/mm3 (0.0-0.8) 03/31/21 13:30 Eos # (Auto) 0.3 K/mm3 (0.0-0.4) 03/31/21 13:30 Baso # (Auto) 0.0 K/mm3 (0.0-0.1) 03/31/21 13:30 Add Manual Diff Complete 03/10/21 04:29 Total Counted 100 01/14/22 04:29 Seg Neutrophils % 78.3 % (40.0-70.0) H 03/31/21 13:30 Seg Neuts % (Manual) 94.0 % (40.0-70.0) H 03/10/21 04:29 Band Neutrophils % 0 % 03/10/21 04:29 Lymphocytes % (Manual) 1.0 % (13.4-35.0) L 03/10/21 04:29 Reactive Lymphs % (Man) 0 % 03/10/21 04:29 Monocytes % (Manual) 5.0 % (0.0-7.3) 03/10/21 04:29 Eosinophils % (Manual) 0 % (0.0-4.3) 03/10/21 04:29 Basophils % (Manual) 0 % (0.0-1.8) 03/10/21 04:29 Metamyelocytes % 0 % 03/10/21 04:29 Myelocytes % 0 % 03/10/21 04:29 Promyelocytes % 0 % 03/10/21 04:29 Blast Cells % 0 % 03/10/21 04:29 Nucleated RBC % 3.0 % (0.0-0.9) H 03/10/21 04:29 Seg Neutrophils # 5.8 K/mm3 (1.8-7.7) 03/31/21 13:30 Seg Neutrophils # Man 19.4 K/mm3 (1.8-7.7) H 03/10/21 04:29 Band Neutrophils # 0.0 K/mm3 03/10/21 04:29 Lymphocytes # (Manual) 0.2 K/mm3 (1.2-5.4) L 03/10/21 04:29 Abs React Lymphs (Man) 0.0 K/mm3 03/10/21 04:29 Monocytes # (Manual) 1.0 K/mm3 (0.0-0.8) H 03/10/21 04:29 Eosinophils # (Manual) 0.0 K/mm3 (0.0-0.4) 03/10/21 04:29 Basophils # (Manual) 0.0 K/mm3 (0.0-0.1) 03/10/21 04:29 Metamyelocytes # 0.0 K/mm3 03/10/21 04:29 Myelocytes # 0.0 K/mm3 03/10/21 04:29 Promyelocytes # 0.0 K/mm3 03/10/21 04:29 Blast Cells # 0.0 K/mm3 03/10/21 04:29 WBC Morphology Not Reportable 03/10/21 04:29 Hypersegmented Neuts Not Reportable 03/10/21 04:29 Hyposegmented Neuts Not Reportable 03/10/21 04:29 Hypogranular Neuts Not Reportable 03/10/21 04:29 Smudge Cells Not Reportable 03/10/21 04:29 Toxic Granulation Not Reportable 03/10/21 04:29 Toxic Vacuolation Not Reportable 03/10/21 04:29 Dohle Bodies Not Reportable 03/10/21 04:29 Pelger-Huet Anomaly Not Reportable 03/10/21 04:29 Mely Rods Not Reportable 03/10/21 04:29 Platelet Estimate Consistent w auto 03/10/21 04:29 Clumped Platelets Not Reportable 03/10/21 04:29 Plt Clumps, EDTA Not Reportable 03/10/21 04:29 Large Platelets Not Reportable 03/10/21 04:29 Giant Platelets Not Reportable 03/10/21 04:29 Platelet Satelliting Not Reportable 03/10/21 04:29 Plt Morphology Comment Not Reportable 03/10/21 04:29 RBC Morphology Normal 03/10/21 04:29 Dimorphic RBCs Not Reportable 03/10/21 04:29 Polychromasia Not Reportable 03/10/21 04:29 Hypochromasia Not Reportable 03/10/21 04:29 Poikilocytosis Not Reportable 03/10/21 04:29 Anisocytosis Not Reportable 03/10/21 04:29 Microcytosis Not Reportable 03/10/21 04:29 Macrocytosis Not Reportable 03/10/21 04:29 Spherocytes Not Reportable 03/10/21 04:29 Pappenheimer Bodies Not Reportable 03/10/21 04:29 Sickle Cells Not Reportable 03/10/21 04:29 Target Cells Not Reportable 03/10/21 04:29 Tear Drop Cells Not Reportable 03/10/21 04:29 Ovalocytes Not Reportable 03/10/21 04:29 Helmet Cells Not Reportable 03/10/21 04:29 [place] Bodies Not Reportable 03/10/21 04:29 [place] Rings Not Reportable 03/10/21 04:29 [place] Cells Not Reportable 03/10/21 04:29 Bite Cells Not Reportable 03/10/21 04:29 Crenated Cell Not Reportable 03/10/21 04:29 Elliptocytes Not Reportable 03/10/21 04:29 Acanthocytes (Spur) Not Reportable 03/10/21 04:29 Rouleaux Not Reportable 03/10/21 04:29 Hemoglobin C Crystals Not Reportable 03/10/21 04:29 Schistocytes Not Reportable 03/10/21 04:29 Malaria parasites Not Reportable 03/10/21 04:29 [place] Bodies Not Reportable 03/10/21 04:29 Hem Pathologist Commnt No 03/10/21 04:29 PT 13.0 Sec. (12.2-14.9) 03/29/21 04:50 INR 0.88 (0.87-1.13) 03/29/21 04:50 APTT 28.0 Sec. (24.2-36.6) 03/08/21 20:24 D-Dimer 1359.12 ng/mlDDU (0-234) H 03/17/21 04:40 ABG pH 7.397 pH Units (7.350-7.450) 03/31/21 12:50 POC ABG pCO2 71.9 mmHg (32.0-48.0) H 03/12/21 21:54 ABG pCO2 58.1 mm Hg 03/31/21 12:50 POC ABG pO2 53.6 mmHg (83-108) L 03/12/21 21:54 ABG pO2 99.4 mm Hg (80.0-90.0) H 03/31/21 12:50 POC ABG HCO3 30.0 03/12/21 21:54 ABG HCO3 34.9 mmol/L (20.0-26.0) H 03/31/21 12:50 ABG O2 Saturation 97.3 % (95.0-99.0) 03/31/21 12:50 ABG O2 Content 15.9 (0.0-44) 03/31/21 12:50 POC ABG Base Excess 0.5 03/12/21 21:54 ABG Base Excess 8.4 mmol/L (-2.0-3.0) H 03/31/21 12:50 ABG Hemoglobin 11.8 gm/dl (14.0-18.0) L 03/31/21 12:50 ABG Oxyhemoglobin 84.8 (94-98) L 03/12/21 21:54 ABG Carboxyhemoglobin 1.6 % (0.0-5.0) 03/31/21 12:50 ABG Methemoglobin 0.7 % (0.0-1.5) 03/31/21 12:50 ABG Sodium 134.2 mmol/L (136.0-145.0) L 03/12/21 21:54 ABG Potassium 4.9 mmol/L (3.40-4.50) H 03/12/21 21:54 ABG Chloride 99.0 mmol/L (98-107) 03/12/21 21:54 ABG Glucose 306 mg/dL (65-95) H 03/12/21 21:54 Oxyhemoglobin 95.1 % (95.0-99.0) 03/31/21 12:50 Carboxyhemoglobin 0.6 (0.5-1.5) 03/12/21 21:54 FiO2 40 % 03/31/21 12:50 FiO2 % 50.0 03/12/21 21:54 Sodium 136 mmol/L (137-145) L 04/02/21 04:26 Potassium 4.3 mmol/L (3.6-5.0) 04/02/21 04:26 Chloride 98.6 mmol/L (98-107) 04/02/21 04:26 Carbon Dioxide 30 mmol/L (22-30) 04/02/21 04:26 Anion Gap 12 mmol/L 04/02/21 04:26 BUN 18 mg/dL (9-20) 04/02/21 04:26 Creatinine 0.6 mg/dL (0.8-1.3) L 04/02/21 04:26 Estimated GFR > 60 ml/min 04/02/21 04:26 BUN/Creatinine Ratio 30 % 04/02/21 04:26 Glucose 152 mg/dL (75-100) H 04/02/21 04:26 POC Glucose 151 mg/dL (70-105) H 04/02/21 05:54 Lactic Acid 1.90 mmol/L (0.7-2.0) 03/08/21 23:51 Calcium 8.5 mg/dL (8.4-10.2) 04/02/21 04:26 Phosphorus 3.40 mg/dL (2.5-4.5) 04/02/21 04:26 Magnesium 2.10 mg/dL (1.7-2.3) 04/02/21 04:26 Ferritin 976.4 ng/mL (30.0-300.0) H 03/15/21 04:00 Total Bilirubin 0.20 mg/dL (0.1-1.2) 03/12/21 08:03 AST 10 units/L (5-40) 03/12/21 08:03 ALT 16 units/L (7-56) 03/12/21 08:03 Alkaline Phosphatase 77 units/L (35-129) 03/12/21 08:03 Lactate Dehydrogenase 630 units/L (91-180) H 03/15/21 06:06 C-Reactive Protein 0.40 mg/dL (0.00-1.30) 03/17/21 04:40 NT-Pro-B Natriuret Pep 1053 pg/mL (0-900) H 03/08/21 20:24 Total Protein 6.0 g/dL (6.3-8.2) L 03/12/21 08:03 Albumin 2.9 g/dL (3.9-5) L 03/12/21 08:03 Albumin/Globulin Ratio 0.9 % 03/12/21 08:03 Triglycerides 305 mg/dL (2-149) H 03/22/21 07:26 Procalcitonin 0.05 ng/mL (<0.15) 03/17/21 04:40 Arterial Blood Glucose 306 mg/dL (65-95) H 03/12/21 21:54 Arterial Blood Ionized Calcium 5.0 mg/dL (4.6-5.3) 03/12/21 21:54 Urine Color Yellow (Yellow) 03/09/21 04:10 Urine Turbidity Slightly-cloudy (Clear) 03/09/21 04:10 Urine pH 5.0 (5.0-7.0) 03/09/21 04:10 Ur Specific [place] 1.041 (1.003-1.030) H 03/09/21 04:10 Urine Protein 100 mg/dl mg/dL (Negative) 03/09/21 04:10 Urine Glucose (UA) Neg mg/dL (Negative) 03/09/21 04:10 Urine Ketones Neg mg/dL (Negative) 03/09/21 04:10 Urine Blood Mod (Negative) 03/09/21 04:10 Urine Nitrite Neg (Negative) 03/09/21 04:10 Urine Bilirubin Neg (Negative) 03/09/21 04:10 Urine Urobilinogen 2.0 mg/dL (<2.0) 03/09/21 04:10 Ur Leukocyte Esterase Neg (Negative) 03/09/21 04:10 Urine WBC (Auto) 4.0 /HPF (0.0-6.0) 03/09/21 04:10 Urine RBC (Auto) 1.0 /HPF (0.0-6.0) 03/09/21 04:10 Urine Bacteria (Auto) 1+ /HPF (Negative) 03/09/21 04:10 Urine Mucus Few /HPF 03/09/21 04:10 Coronavirus (PCR) Positive (Negative) A 03/09/21 08:00 Miscellaneous Test Flexitest 1 03/16/21 13:14 Microbiology: Microbiology 03/31/21 13:30 Peripheral/Venous Blood Culture - Preliminary NO GROWTH AFTER 24 HOURS 03/31/21 14:00 Peripheral/Venous Blood Culture - Preliminary NO GROWTH AFTER 24 HOURS 03/31/21 15:55 Tracheal Aspirate Sputum Culture - Preliminary Good/IV: Voiding Method Indwelling Catheter Active Medications - Current Medications Current Medications: Generic Name Dose Route Start Last Admin Trade Name Freq PRN Reason Stop Dose Admin Acetaminophen 650 mg 03/09/21 01:26 04/01/21 00:53 Acetaminophen 325 Mg Tab PO 650 mg Q4H PRN Administration Pain MILD(1-3)/Fever >100.5/RAYO Albuterol 2.5 mg 03/09/21 01:26 03/18/21 21:06 Albuterol 2.5 Mg/3 Ml Nebu IH 2.5 mg Q4HRT PRN Administration Shortness Of Breath Amlodipine Besylate 5 mg 03/30/21 10:00 04/02/21 10:05 Amlodipine 5 Mg Tab PO 5 mg QDAY BLANCA Administration Arformoterol Tartrate 15 mcg 03/11/21 20:00 04/02/21 08:36 Arformoterol 15 Mcg/2 Ml Nebu IH 15 mcg Q12HRT BLANCA Administration Ascorbic Acid 500 mg 03/10/21 14:00 04/02/21 10:04 Ascorbic Acid 500 Mg Tab PO 500 mg BID BLANCA Administration Bisacodyl 10 mg 03/26/21 13:43 03/26/21 13:51 Bisacodyl 10 Mg Rect Supp OK 10 mg QDAY PRN Administration Constipation Budesonide 0.25 mg 03/11/21 20:00 04/02/21 08:36 Budesonide 0.25 Mg/2 Ml Nebu IH 0.25 mg Q12HRT BLANCA Administration Chlordiazepoxide HCl 75 mg 03/22/21 18:00 04/02/21 07:10 Chlordiazepoxide 25 Mg Cap PO 75 mg Q6HR BALNCA Administration Dextrose 0 ml 03/20/21 10:52 Dextrose 10% *Hypoglycemia IV PRN PRN Hypoglycemia Doxazosin Mesylate 1 mg 03/23/21 14:00 04/02/21 10:06 Doxazosin 1 Mg Tab PO 1 mg QDAY BLANCA Administration Enoxaparin Sodium 30 mg 04/01/21 10:00 04/02/21 10:05 Enoxaparin 30 Mg/0.3 Ml Inj SUB-Q 30 mg Q12HR BLANCA Administration Famotidine 20 mg 03/12/21 22:00 04/02/21 10:05 Famotidine 20 Mg Tab FEEDTUBE 20 mg BID BLANCA Administration Fentanyl 1 applic 03/31/21 15:00 03/31/21 16:12 Fentanyl 75 Mcg/Hr Patch 72hr TD 1 applic Q3D BLANCA Administration Fentanyl 50 mcg 03/31/21 14:41 04/01/21 08:38 Fentanyl 100 Mcg/2 Ml Inj IV 50 mcg Q2H PRN Administration ANALGESIA Furosemide 20 mg 03/30/21 18:00 04/02/21 10:05 Furosemide 20 Mg/2 Ml Inj IV 04/04/21 17:59 20 mg QDAY BLANCA Administration Hydralazine HCl 50 mg 03/23/21 14:26 04/02/21 07:11 Hydralazine 25 Mg Tab PO 50 mg Q8HR BLANCA Administration Hydrophilic Ointment 1 applic 03/10/21 15:39 Lip Therapy Vaseline TP Q2HR PRN Dry Lips Fentanyl Citrate 2,000 mcg in 100 mls @ 5.897 mls/hr 03/10/21 17:00 04/02/21 04:52 Fentanyl Drip Premix IV 1 mcg/kg/hr TITR BLANCA 5.897 mls/hr Administration Protocol 1 MCG/KG/HR Propofol 1,000 mg in 100 mls @ 3.507 mls/hr 03/11/21 17:00 03/22/21 18:02 Diprivan 10 Mg/Ml IV 0 mcg/kg/min TITR BLANCA 0 mls/hr Titration Protocol 5 MCG/KG/MIN Cefepime HCl 2 gm in 100 mls @ 200 mls/hr 03/31/21 15:00 04/02/21 08:00 Cefepime/Ns 2 Gm/100 Ml IV 200 mls/hr Q8H BLANCA Administration Protocol Insulin Glargine 15 units 03/29/21 22:00 04/01/21 21:30 Insulin Glargine 100 Units/Ml SUB-Q 15 units QHS BLANCA Administration Insulin Human Lispro 0 unit 03/11/21 18:00 04/01/21 17:46 Insulin Lispro 100 Unit/Ml SUB-Q 3 unit Q6HR [facility] Administration Protocol Labetalol HCl 10 mg 03/12/21 21:13 03/21/21 16:54 Labetalol 20 Mg/4 Ml Inj IV 10 mg Q6H PRN Administration Blood Pressure Metoprolol Tartrate 12.5 mg 03/21/21 22:00 04/02/21 10:06 Metoprolol Tartrate 25 Mg Tab PO 12.5 mg BID BLANCA Administration Midazolam HCl 2 mg 03/15/21 08:49 03/31/21 21:33 Midazolam 2 Mg/2 Ml Inj IV 2 mg Q2H PRN Administration VENT SYNCHRONY Multi-Ingred Cream/Lotion/Oil/Oint 1 applic 03/10/21 15:39 Mineral Oil/Petrolatum, White Ophth Oint 3.5 Gm OU Q4HR PRN Dry Eye(s) Ondansetron HCl 4 mg 03/09/21 01:26 Ondansetron 4 Mg/2 Ml Inj IV Q8H PRN Nausea And Vomiting Oxycodone HCl 5 mg 03/30/21 12:14 03/31/21 07:45 Oxycodone 5 Mg Tab PO 5 mg Q6H PRN Administration Pain, Moderate (4-6) Phenyleph/Shark Oil/Min Oil/Petrol 1 applic 03/22/21 17:35 03/31/21 18:20 Pe/Mo/Pet,Wh 10 Applic/28 Gm Tube OK 1 applic Q6HR PRN Administration Hemorrhoids Polyethylene Glycol 17 gm 04/02/21 10:00 04/02/21 10:04 Polyethylene Glycol 3350 17 Gm Powder FEEDTUBE 17 gm QDAY BLANCA Administration Prednisone 10 mg 03/29/21 10:00 04/02/21 10:04 Prednisone 10 Mg Tab PO 10 mg DAILY BLANCA Administration Quetiapine Fumarate 300 mg 03/21/21 22:00 04/02/21 10:04 Quetiapine 100 Mg Tab PO 300 mg BID BLANCA Administration Senna/Docusate Sodium 2 tab 04/02/21 10:00 04/02/21 10:04 Sennosides/Docusate Sodium 8.6/50 Mg Tab FEEDTUBE 2 tab BID BLANCA Administration Sodium Chloride 10 ml 03/09/21 10:00 04/02/21 10:07 Sodium Chloride 0.9% 10 Ml Flush Syringe IV 10 ml BID BLANCA Administration Sodium Chloride 10 ml 03/09/21 01:26 Sodium Chloride 0.9% 10 Ml Flush Syringe IV PRN PRN LINE FLUSH Sodium Chloride 10 ml 03/20/21 09:48 Sodium Chloride 0.9% 50 Ml Ivpb IV PRN PRN FLUSH Zinc Sulfate 220 mg 03/10/21 14:00 04/02/21 10:08 Zinc Sulfate 220 Mg Cap PO 220 mg BID BLANCA Administration Nutrition/Malnutrition Assess - Dietary Evaluation Nutrition/Malnutrition Findings: Nutrition Notes Start: 03/09/21 08:49 Freq: Status: Active Protocol: Document 03/31/21 14:51 BRIAN (Rec: 03/31/21 14:52 BRIAN [id number]) Nutrition Notes Initial or Follow up Reassessment Current Diagnosis Diabetes,Sepsis,Hypertension, Respiratory Failure Other Pertinent Diagnosis COVID-19, Bilateral Pneumonia. Current Diet TF-Glucerna 1.2 at 70 ml/hr Labs/Tests Na 140 yesterday Pertinent Medications Lasix, Reglan, Prednisone Height 5 ft 11 in Weight 122 kg [place] Body Weight (kg) 78.18 BMI 37.5 Weight Status Obese Subjective/Other Information Pt remains on vent support. Trach and PEG placed on 2/2. Per RN, pt tolerating TF at goal rate. Percent of energy/protein needs met: 82% energy 78% pro Burn Absent Trauma Absent #1 Nutrition Diagnosis Inadequate oral intake Diagnosis Progress(for reassessment Continues documentation) Is patient on ventilator? Yes Is Patient Ambulatory and/or Out of Bed No REE-([place]-St Jeor-confined to bed) 2449.140 Calculation Used for Recommendations 70-80% energy needs Additional Notes Energy needs: 7095-2296 kcal/ day Pro needs 1.3g/kg adjBW: 130g/ day Fluid needs 1ml/kcal Nutrition Intervention Nutrition Support: Continue Glucerna 1.2 at 70ml/ hr with 110ml water flush q4h. Kcal 2,016 Protein (gm) 101 Carbohydrates (gm) 192 Fat (gm) 101 Fluid (mL) 1,352 Fiber (gm) 27 Goal #1 TF tolerance Goal #2 TF to meet at least 75% energy and pro needs Follow-Up By: 04/07/21 Additional Comments F/U: stable TF, vent status, wt <ARABELLA CASTILLO - Last Filed: 04/03/21 07:12> Assessment and Plan Assessment and plan: I saw and evaluated the patient. I agree with the findings and the plan of care as documented in the Nurse Practitioner's~note, with the following corrections and additions. Hospitalist Physical - Constitutional Vitals: Temp Pulse Resp BP Pulse Ox 100.3 F H 108 H 24 119/67 93 04/03/21 03:32 04/03/21 06:00 04/03/21 06:00 04/03/21 06:00 04/03/21 06:00 Results - Labs CBC & Chem 7: 04/03/21 04:14 04/03/21 04:14 Labs: Laboratory Last Values WBC 8.8 K/mm3 (4.5-11.0) 04/03/21 04:14 RBC 3.62 M/mm3 (3.65-5.03) L 04/03/21 04:14 Hgb 11.0 gm/dl (11.8-15.2) L 04/03/21 04:14 Hct 34.0 % (35.5-45.6) L 04/03/21 04:14 MCV 94 fl (84-94) 04/03/21 04:14 MCH 30 pg (28-32) 04/03/21 04:14 MCHC 32 % (32-34) 04/03/21 04:14 RDW 16.3 % (13.2-15.2) H 04/03/21 04:14 Plt Count 280 K/mm3 (140-440) 04/03/21 04:14 Lymph % (Auto) 7.6 % (13.4-35.0) L 03/31/21 13:30 [place] % (Auto) 9.5 % (0.0-7.3) H 03/31/21 13:30 Eos % (Auto) 4.1 % (0.0-4.3) 03/31/21 13:30 Baso % (Auto) 0.5 % (0.0-1.8) 03/31/21 13:30 Lymph # (Auto) 0.6 K/mm3 (1.2-5.4) L 03/31/21 13:30 [place] # (Auto) 0.7 K/mm3 (0.0-0.8) 03/31/21 13:30 Eos # (Auto) 0.3 K/mm3 (0.0-0.4) 03/31/21 13:30 Baso # (Auto) 0.0 K/mm3 (0.0-0.1) 03/31/21 13:30 Add Manual Diff Complete 03/10/21 04:29 Total Counted 100 03/10/21 04:29 Seg Neutrophils % 78.3 % (40.0-70.0) H 03/31/21 13:30 Seg Neuts % (Manual) 94.0 % (40.0-70.0) H 03/10/21 04:29 Band Neutrophils % 0 % 03/10/21 04:29 Lymphocytes % (Manual) 1.0 % (13.4-35.0) L 03/10/21 04:29 Reactive Lymphs % (Man) 0 % 03/10/21 04:29 Monocytes % (Manual) 5.0 % (0.0-7.3) 03/10/21 04:29 Eosinophils % (Manual) 0 % (0.0-4.3) 03/10/21 04:29 Basophils % (Manual) 0 % (0.0-1.8) 03/10/21 04:29 Metamyelocytes % 0 % 03/10/21 04:29 Myelocytes % 0 % 03/10/21 04:29 Promyelocytes % 0 % 03/10/21 04:29 Blast Cells % 0 % 03/10/21 04:29 Nucleated RBC % 3.0 % (0.0-0.9) H 03/10/21 04:29 Seg Neutrophils # 5.8 K/mm3 (1.8-7.7) 03/31/21 13:30 Seg Neutrophils # Man 19.4 K/mm3 (1.8-7.7) H 03/10/21 04:29 Band Neutrophils # 0.0 K/mm3 03/10/21 04:29 Lymphocytes # (Manual) 0.2 K/mm3 (1.2-5.4) L 03/10/21 04:29 Abs React Lymphs (Man) 0.0 K/mm3 03/10/21 04:29 Monocytes # (Manual) 1.0 K/mm3 (0.0-0.8) H 03/10/21 04:29 Eosinophils # (Manual) 0.0 K/mm3 (0.0-0.4) 03/10/21 04:29 Basophils # (Manual) 0.0 K/mm3 (0.0-0.1) 03/10/21 04:29 Metamyelocytes # 0.0 K/mm3 03/10/21 04:29 Myelocytes # 0.0 K/mm3 03/10/21 04:29 Promyelocytes # 0.0 K/mm3 03/10/21 04:29 Blast Cells # 0.0 K/mm3 03/10/21 04:29 WBC Morphology Not Reportable 03/10/21 04:29 Hypersegmented Neuts Not Reportable 03/10/21 04:29 Hyposegmented Neuts Not Reportable 03/10/21 04:29 Hypogranular Neuts Not Reportable 03/10/21 04:29 Smudge Cells Not Reportable 03/10/21 04:29 Toxic Granulation Not Reportable 03/10/21 04:29 Toxic Vacuolation Not Reportable 03/10/21 04:29 Dohle Bodies Not Reportable 03/10/21 04:29 Pelger-Huet Anomaly Not Reportable 03/10/21 04:29 Mely Rods Not Reportable 03/10/21 04:29 Platelet Estimate Consistent w auto 03/10/21 04:29 Clumped Platelets Not Reportable 03/10/21 04:29 Plt Clumps, EDTA Not Reportable 03/10/21 04:29 Large Platelets Not Reportable 03/10/21 04:29 Giant Platelets Not Reportable 03/10/21 04:29 Platelet Satelliting Not Reportable 03/10/21 04:29 Plt Morphology Comment Not Reportable 03/10/21 04:29 RBC Morphology Normal 03/10/21 04:29 Dimorphic RBCs Not Reportable 03/10/21 04:29 Polychromasia Not Reportable 03/10/21 04:29 Hypochromasia Not Reportable 03/10/21 04:29 Poikilocytosis Not Reportable 03/10/21 04:29 Anisocytosis Not Reportable 03/10/21 04:29 Microcytosis Not Reportable 03/10/21 04:29 Macrocytosis Not Reportable 03/10/21 04:29 Spherocytes Not Reportable 03/10/21 04:29 Pappenheimer Bodies Not Reportable 03/10/21 04:29 Sickle Cells Not Reportable 03/10/21 04:29 Target Cells Not Reportable 03/10/21 04:29 Tear Drop Cells Not Reportable 03/10/21 04:29 Ovalocytes Not Reportable 03/10/21 04:29 Helmet Cells Not Reportable 03/10/21 04:29 [place] Bodies Not Reportable 03/10/21 04:29 [place] Rings Not Reportable 03/10/21 04:29 [place] Cells Not Reportable 03/10/21 04:29 Bite Cells Not Reportable 03/10/21 04:29 Crenated Cell Not Reportable 03/10/21 04:29 Elliptocytes Not Reportable 03/10/21 04:29 Acanthocytes (Spur) Not Reportable 03/10/21 04:29 Rouleaux Not Reportable 03/10/21 04:29 Hemoglobin C Crystals Not Reportable 03/10/21 04:29 Schistocytes Not Reportable 03/10/21 04:29 Malaria parasites Not Reportable 03/10/21 04:29 [place] Bodies Not Reportable 03/10/21 04:29 Hem Pathologist Commnt No 03/10/21 04:29 PT 13.0 Sec. (12.2-14.9) 03/29/21 04:50 INR 0.88 (0.87-1.13) 03/29/21 04:50 APTT 28.0 Sec. (24.2-36.6) 03/08/21 20:24 D-Dimer 1359.12 ng/mlDDU (0-234) H 03/17/21 04:40 ABG pH 7.397 pH Units (7.350-7.450) 03/31/21 12:50 POC ABG pCO2 71.9 mmHg (32.0-48.0) H 03/12/21 21:54 ABG pCO2 58.1 mm Hg 03/31/21 12:50 POC ABG pO2 53.6 mmHg (83-108) L 03/12/21 21:54 ABG pO2 99.4 mm Hg (80.0-90.0) H 03/31/21 12:50 POC ABG HCO3 30.0 03/12/21 21:54 ABG HCO3 34.9 mmol/L (20.0-26.0) H 03/31/21 12:50 ABG O2 Saturation 97.3 % (95.0-99.0) 03/31/21 12:50 ABG O2 Content 15.9 (0.0-44) 03/31/21 12:50 POC ABG Base Excess 0.5 03/12/21 21:54 ABG Base Excess 8.4 mmol/L (-2.0-3.0) H 03/31/21 12:50 ABG Hemoglobin 11.8 gm/dl (14.0-18.0) L 03/31/21 12:50 ABG Oxyhemoglobin 84.8 (94-98) L 03/12/21 21:54 ABG Carboxyhemoglobin 1.6 % (0.0-5.0) 03/31/21 12:50 ABG Methemoglobin 0.7 % (0.0-1.5) 03/31/21 12:50 ABG Sodium 134.2 mmol/L (136.0-145.0) L 03/12/21 21:54 ABG Potassium 4.9 mmol/L (3.40-4.50) H 03/12/21 21:54 ABG Chloride 99.0 mmol/L (98-107) 03/12/21 21:54 ABG Glucose 306 mg/dL (65-95) H 03/12/21 21:54 Oxyhemoglobin 95.1 % (95.0-99.0) 03/31/21 12:50 Carboxyhemoglobin 0.6 (0.5-1.5) 03/12/21 21:54 FiO2 40 % 03/31/21 12:50 FiO2 % 50.0 03/12/21 21:54 Sodium 139 mmol/L (137-145) 04/03/21 04:14 Potassium 4.6 mmol/L (3.6-5.0) 04/03/21 04:14 Chloride 99.4 mmol/L (98-107) 04/03/21 04:14 Carbon Dioxide 31 mmol/L (22-30) H 04/03/21 04:14 Anion Gap 13 mmol/L 04/03/21 04:14 BUN 16 mg/dL (9-20) 04/03/21 04:14 Creatinine 0.6 mg/dL (0.8-1.3) L 04/03/21 04:14 Estimated GFR > 60 ml/min 04/03/21 04:14 BUN/Creatinine Ratio 27 % 04/03/21 04:14 Glucose 155 mg/dL (75-100) H 04/03/21 04:14 POC Glucose 165 mg/dL (70-105) H 04/03/21 05:27 Lactic Acid 1.90 mmol/L (0.7-2.0) 03/08/21 23:51 Calcium 8.6 mg/dL (8.4-10.2) 04/03/21 04:14 Phosphorus 3.40 mg/dL (2.5-4.5) 04/02/21 04:26 Magnesium 2.10 mg/dL (1.7-2.3) 04/02/21 04:26 Ferritin 976.4 ng/mL (30.0-300.0) H 03/15/21 04:00 Total Bilirubin 0.20 mg/dL (0.1-1.2) 03/12/21 08:03 AST 10 units/L (5-40) 03/12/21 08:03 ALT 16 units/L (7-56) 03/12/21 08:03 Alkaline Phosphatase 77 units/L (35-129) 03/12/21 08:03 Lactate Dehydrogenase 630 units/L (91-180) H 03/15/21 06:06 C-Reactive Protein 0.40 mg/dL (0.00-1.30) 03/17/21 04:40 NT-Pro-B Natriuret Pep 1053 pg/mL (0-900) H 03/08/21 20:24 Total Protein 6.0 g/dL (6.3-8.2) L 03/12/21 08:03 Albumin 2.9 g/dL (3.9-5) L 03/12/21 08:03 Albumin/Globulin Ratio 0.9 % 03/12/21 08:03 Triglycerides 305 mg/dL (2-149) H 03/22/21 07:26 Procalcitonin 0.17 ng/mL (<0.15) 04/01/21 07:16 Arterial Blood Glucose 306 mg/dL (65-95) H 03/12/21 21:54 Arterial Blood Ionized Calcium 5.0 mg/dL (4.6-5.3) 03/12/21 21:54 Urine Color Yellow (Yellow) 03/09/21 04:10 Urine Turbidity Slightly-cloudy (Clear) 03/09/21 04:10 Urine pH 5.0 (5.0-7.0) 03/09/21 04:10 Ur Specific [place] 1.041 (1.003-1.030) H 03/09/21 04:10 Urine Protein 100 mg/dl mg/dL (Negative) 03/09/21 04:10 Urine Glucose (UA) Neg mg/dL (Negative) 03/09/21 04:10 Urine Ketones Neg mg/dL (Negative) 03/09/21 04:10 Urine Blood Mod (Negative) 03/09/21 04:10 Urine Nitrite Neg (Negative) 03/09/21 04:10 Urine Bilirubin Neg (Negative) 03/09/21 04:10 Urine Urobilinogen 2.0 mg/dL (<2.0) 03/09/21 04:10 Ur Leukocyte Esterase Neg (Negative) 03/09/21 04:10 Urine WBC (Auto) 4.0 /HPF (0.0-6.0) 03/09/21 04:10 Urine RBC (Auto) 1.0 /HPF (0.0-6.0) 03/09/21 04:10 Urine Bacteria (Auto) 1+ /HPF (Negative) 03/09/21 04:10 Urine Mucus Few /HPF 03/09/21 04:10 Coronavirus (PCR) Positive (Negative) A 03/09/21 08:00 Miscellaneous Test Flexitest 1 03/16/21 13:14 Microbiology: Microbiology 03/31/21 15:55 Tracheal Aspirate Sputum Culture - Final 03/31/21 13:30 Peripheral/Venous Blood Culture - Preliminary NO GROWTH AFTER 48 HOURS 03/31/21 14:00 Peripheral/Venous Blood Culture - Preliminary NO GROWTH AFTER 48 HOURS Good/IV: Voiding Method Indwelling Catheter Active Medications - Current Medications Current Medications: Generic Name Dose Route Start Last Admin Trade Name Freq PRN Reason Stop Dose Admin Acetaminophen 650 mg 03/09/21 01:26 04/03/21 05:19 Acetaminophen 325 Mg Tab PO 650 mg Q4H PRN Administration Pain MILD(1-3)/Fever >100.5/RAYO Albuterol 2.5 mg 03/09/21 01:26 03/18/21 21:06 Albuterol 2.5 Mg/3 Ml Nebu IH 2.5 mg Q4HRT PRN Administration Shortness Of Breath Amlodipine Besylate 5 mg 03/30/21 10:00 04/02/21 10:05 Amlodipine 5 Mg Tab PO 5 mg QDAY BLANCA Administration Arformoterol Tartrate 15 mcg 03/11/21 20:00 04/02/21 20:06 Arformoterol 15 Mcg/2 Ml Nebu IH 15 mcg Q12HRT BLANCA Administration Ascorbic Acid 500 mg 03/10/21 14:00 04/02/21 21:10 Ascorbic Acid 500 Mg Tab PO 500 mg BID BLANCA Administration Bisacodyl 10 mg 03/26/21 13:43 03/26/21 13:51 Bisacodyl 10 Mg Rect Supp OK 10 mg QDAY PRN Administration Constipation Budesonide 0.25 mg 03/11/21 20:00 04/02/21 20:06 Budesonide 0.25 Mg/2 Ml Nebu IH 0.25 mg Q12HRT BLANCA Administration Chlordiazepoxide HCl 75 mg 03/22/21 18:00 04/03/21 05:19 Chlordiazepoxide 25 Mg Cap PO 75 mg Q6HR BLANCA Administration Dextrose 0 ml 03/20/21 10:52 Dextrose 10% *Hypoglycemia IV PRN PRN Hypoglycemia Doxazosin Mesylate 1 mg 03/23/21 14:00 04/02/21 10:06 Doxazosin 1 Mg Tab PO 1 mg QDAY BLANCA Administration Enoxaparin Sodium 30 mg 04/01/21 10:00 04/02/21 21:11 Enoxaparin 30 Mg/0.3 Ml Inj SUB-Q 30 mg Q12HR BLANCA Administration Famotidine 20 mg 03/12/21 22:00 04/02/21 21:13 Famotidine 20 Mg Tab FEEDTUBE 20 mg BID BLANCA Administration Fentanyl 1 applic 03/31/21 15:00 03/31/21 16:12 Fentanyl 75 Mcg/Hr Patch 72hr TD 1 applic Q3D BLANCA Administration Fentanyl 50 mcg 03/31/21 14:41 04/01/21 08:38 Fentanyl 100 Mcg/2 Ml Inj IV 50 mcg Q2H PRN Administration ANALGESIA Furosemide 20 mg 03/30/21 18:00 04/02/21 10:05 Furosemide 20 Mg/2 Ml Inj IV 04/04/21 17:59 20 mg QDAY BLANCA Administration Hydralazine HCl 50 mg 03/23/21 14:26 04/03/21 05:19 Hydralazine 25 Mg Tab PO 50 mg Q8HR BLANCA Administration Hydrophilic Ointment 1 applic 03/10/21 15:39 Lip Therapy Vaseline TP Q2HR PRN Dry Lips Fentanyl Citrate 2,000 mcg in 100 mls @ 5.897 mls/hr 03/10/21 17:00 04/02/21 20:34 Fentanyl Drip Premix IV 1 mcg/kg/hr TITR BLANCA 5.897 mls/hr Administration Protocol 1 MCG/KG/HR Propofol 1,000 mg in 100 mls @ 3.507 mls/hr 03/11/21 17:00 03/22/21 18:02 Diprivan 10 Mg/Ml IV 0 mcg/kg/min TITR BLANCA 0 mls/hr Titration Protocol 5 MCG/KG/MIN Cefepime HCl 2 gm in 100 mls @ 200 mls/hr 03/31/21 15:00 04/02/21 23:24 Cefepime/Ns 2 Gm/100 Ml IV 200 mls/hr Q8H BLANCA Administration Protocol Insulin Glargine 15 units 03/29/21 22:00 04/02/21 21:11 Insulin Glargine 100 Units/Ml SUB-Q 15 units QHS BLANCA Administration Insulin Human Lispro 0 unit 03/11/21 18:00 04/03/21 05:32 Insulin Lispro 100 Unit/Ml SUB-Q 3 unit Q6HR BLANCA Administration Protocol Labetalol HCl 10 mg 03/12/21 21:13 03/21/21 16:54 Labetalol 20 Mg/4 Ml Inj IV 10 mg Q6H PRN Administration Blood Pressure Metoprolol Tartrate 12.5 mg 03/21/21 22:00 04/02/21 21:11 Metoprolol Tartrate 25 Mg Tab PO 12.5 mg BID BLANCA Administration Midazolam HCl 2 mg 03/15/21 08:49 03/31/21 21:33 Midazolam 2 Mg/2 Ml Inj IV 2 mg Q2H PRN Administration VENT SYNCHRONY Multi-Ingred Cream/Lotion/Oil/Oint 1 applic 03/10/21 15:39 Mineral Oil/Petrolatum, White Ophth Oint 3.5 Gm OU Q4HR PRN Dry Eye(s) Ondansetron HCl 4 mg 03/09/21 01:26 Ondansetron 4 Mg/2 Ml Inj IV Q8H PRN Nausea And Vomiting Oxycodone HCl 5 mg 03/30/21 12:14 03/31/21 07:45 Oxycodone 5 Mg Tab PO 5 mg Q6H PRN Administration Pain, Moderate (4-6) Phenyleph/Shark Oil/Min Oil/Petrol 1 applic 03/22/21 17:35 03/31/21 18:20 Pe/Mo/Pet,Wh 10 Applic/28 Gm Tube OK 1 applic Q6HR PRN Administration Hemorrhoids Polyethylene Glycol 17 gm 04/02/21 10:00 04/02/21 10:04 Polyethylene Glycol 3350 17 Gm Powder FEEDTUBE 17 gm QDAY BLANCA Administration Prednisone 10 mg 03/29/21 10:00 04/02/21 10:04 Prednisone 10 Mg Tab PO 10 mg DAILY BLANCA Administration Quetiapine Fumarate 300 mg 03/21/21 22:00 04/02/21 21:11 Quetiapine 100 Mg Tab PO 300 mg BID BLANCA Administration Senna/Docusate Sodium 2 tab 04/02/21 10:00 04/02/21 21:10 Sennosides/Docusate Sodium 8.6/50 Mg Tab FEEDTUBE 2 tab BID BLANCA Administration Sodium Chloride 10 ml 03/09/21 10:00 04/02/21 21:17 Sodium Chloride 0.9% 10 Ml Flush Syringe IV 10 ml BID BLANCA Administration Sodium Chloride 10 ml 03/09/21 01:26 04/02/21 21:13 Sodium Chloride 0.9% 10 Ml Flush Syringe IV 10 ml PRN PRN Administration LINE FLUSH Sodium Chloride 10 ml 03/20/21 09:48 Sodium Chloride 0.9% 50 Ml Ivpb IV PRN PRN FLUSH Zinc Sulfate 220 mg 03/10/21 14:00 04/02/21 21:12 Zinc Sulfate 220 Mg Cap PO 220 mg BID BLANCA Administration Nutrition/Malnutrition Assess - Dietary Evaluation Nutrition/Malnutrition Findings: Nutrition Notes Start: 03/09/21 08:49 Freq: Status: Active Protocol: Document 03/31/21 14:51 BRIAN (Rec: 03/31/21 14:52 [facility] [id number]) Nutrition Notes Initial or Follow up Reassessment Current Diagnosis Diabetes,Sepsis,Hypertension, Respiratory Failure Other Pertinent Diagnosis COVID-19, Bilateral Pneumonia. Current Diet TF-Glucerna 1.2 at 70 ml/hr Labs/Tests Na 140 yesterday Pertinent Medications Lasix, Reglan, Prednisone Height 5 ft 11 in Weight 122 kg [place] Body Weight (kg) 78.18 BMI 37.5 Weight Status Obese Subjective/Other Information Pt remains on vent support. Trach and PEG placed on /. Per RN, pt tolerating TF at goal rate. Percent of energy/protein needs met: 82% energy 78% pro Burn Absent Trauma Absent #1 Nutrition Diagnosis Inadequate oral intake Diagnosis Progress(for reassessment Continues documentation) Is patient on ventilator? Yes Is Patient Ambulatory and/or Out of Bed No REE-([place]-confined to bed) 1164.140 Calculation Used for Recommendations 70-80% energy needs Additional Notes Energy needs: 7933-2056 kcal/ day Pro needs 1.3g/kg adjBW: 130g/ day Fluid needs 1ml/kcal Nutrition Intervention Nutrition Support: Continue Glucerna 1.2 at 70ml/ hr with 110ml water flush q4h. Kcal 2,016 Protein (gm) 101 Carbohydrates (gm) 192 Fat (gm) 101 Fluid (mL) 1,352 Fiber (gm) 27 Goal #1 TF tolerance Goal #2 TF to meet at least 75% energy and pro needs Follow-Up By: 04/07/21 Additional Comments F/U: stable TF, vent status, wt
[2021-04-02] MEDS: INSULIN LISPRO 100 UNIT/ML SUB-Q SCH ×3 (12:02→23:59)
[2021-04-02] MEDS: ACETAMINOPHEN 325 MG TAB PO PRN (14:24)
[2021-04-02] MEDS: INSULIN GLARGINE 100 UNITS/ML SUB-Q SCH (21:11)
[2021-04-03 05:13] LABS: Mean Corpuscular HGB Conc 32 % (32-34); Mean Corpuscular Volume 94 fl (84-94); Platelet Count 280 K/mm3 (140-440); Red Blood Count 3.62 M/mm3 (3.65-5.03); Red Cell Distribution Width 16.3 % (13.2-15.2)
[2021-04-03] MEDS: chlordiazePOXIDE 25 MG CAP PO SCH ×3 (05:19→18:03)
[2021-04-03] MEDS: ACETAMINOPHEN 325 MG TAB PO PRN (05:19)
[2021-04-03] MEDS: hydrALAZINE 25 MG TAB PO SCH ×3 (05:19→22:04)
[2021-04-03] MEDS: INSULIN LISPRO 100 UNIT/ML SUB-Q SCH ×3 (05:32→18:03)
[2021-04-03 05:34] LABS: Blood Urea Nitrogen 16 mg/dL (9-20); Calcium 8.6 mg/dL (8.4-10.2); Hemolysis Index 7
[2021-04-03 05:35] LABS: BUN/Creatinine Ratio 27
[2021-04-03] MEDS: ARFORMOTEROL 15 MCG/2 ML NEBU IH SCH ×2 (08:16→20:10)
[2021-04-03] MEDS: BUDESONIDE 0.25 MG/2 ML NEBU IH SCH ×2 (08:16→20:10)
[2021-04-03] MEDS: ENOXAPARIN 30 MG/0.3 ML INJ SUB-Q SCH ×2 (09:58→22:05)
[2021-04-03] MEDS: ZINC SULFATE 220 MG CAP PO SCH ×2 (09:58→22:04)
[2021-04-03] MEDS: QUEtiapine 100 MG TAB PO SCH ×2 (09:59→22:05)
[2021-04-03] MEDS: CEFEPIME/NS 2 GM/100 ML 2 GM/100 ML BAG IV SCH (09:59)
[2021-04-03] MEDS: FAMOTIDINE 20 MG TAB FEEDTUBE SCH ×2 (09:59→22:03)
[2021-04-03] MEDS: POLYETHYLENE GLYCOL 3350 17 GM POWDER FEEDTUBE SCH (09:59)
[2021-04-03] MEDS: SENNOSIDES/DOCUSATE SODIUM 8.6/50 MG TAB FEEDTUBE SCH ×2 (09:59→22:04)
[2021-04-03] MEDS: predniSONE 10 MG TAB PO SCH (09:59)
[2021-04-03] MEDS: METOPROLOL TARTRATE 25 MG TAB PO SCH ×2 (10:00→22:05)
[2021-04-03] MEDS: ASCORBIC ACID 500 MG TAB PO SCH ×2 (10:00→22:04)
[2021-04-03] MEDS: amLODIPine 5 MG TAB PO SCH (10:01)
[2021-04-03] MEDS: FUROSEMIDE 20 MG/2 ML INJ IV SCH (10:02)
[2021-04-03] MEDS: DOXAZOSIN 1 MG TAB PO SCH (10:14)
[2021-04-03] MEDS: fentaNYL DRIP Premix 2,000 MCG/100 ML BAG IV SCH ×2 (10:34→13:36)
[2021-04-03] MEDS: fentaNYL 75 MCG/HR PATCH 72HR TD SCH (10:36)
--- NOTE | 2021-04-03 12:48 | Progress Note ---
Assessment and Plan Acute hypoxemic respiratory failure, on continuous noninvasive ventilation COVID-19 infection Bilateral pneumonia History of diabetes Obesity Hypertension Leukocytosis Possible venous thromboembolic phenomena with significantly elevated D-dimers DM II Elevated serum inflammatory markers to include CRP levels, ferritin and LDH - Cefepime discontinued - continue LTAC evaluation - continue Daily SAT and SBT assessment as tolerated - prn CXR's & ABG's at this point - continue care as below otherwise; - continue to wean supplemental oxygen for target O2 sat's > 90% acutely - VAP bundle addressed - continue lung protective strategies - continue bronchodilators with routiunc health nash trach care and pulmonary hygiene per RT - wean per pulmonary driven protocols otherwise - continue accuchecks with glycemic control per SSI (While critically ill target blood glucose of 140-180 mg/dL; avoid hypoglycemia) - sedation prn for target RASS 0 to -1 - avoid nephrotoxins, renally dose all medications - avoid benzodiazepine's, reduce the possibility of delirium - AB's per ID rec's - prn analgesia per pain score - Maintenance of sleep-wake cycle, avoid delirium - G.I. & VTE prophylaxis - PT/OT/ROM exercises - mobility protocols for pressure ulcer prophylaxis - Monitor hemodynamics closely - continue other care per attending / other consultants - discharge planning ongoing concurrently COVID SPECIFIC INTERVENTIONS - Remdesivir as per ID/Pulmonary developed protocols (received) - continue systemic steroids for severe COVID-19 infection empirically (Decadron) - follow repeat COVID tests results - zinc and vitamin C supplementation - Monitor inflammatory markers per facility protocol - ferritin, Ddimer, CRP - therapeutic anticoagulation per system Protocol based on d-dimer and clinical considerations (treatment dose) - contact and airborne isolation discontinued .... Re-evaluate in am & prn CONDITION: CRITICAL PROGNOSIS: GUARDED CODE STATUS: FULL CODE The high probability of a clinically significant, sudden or life-threatening deterioration of the [respiratory, cardiovascular & hematologic] system(s) required my full and direct attention, intervention and personal management. The aggregate critical care time was [35] minutes without overlap. Time includes spent on; [x] Data Review and interpretation [x] Patient assessment and monitoring of vital signs [x] Documentation [x] Medication orders and management Subjective Date of service: 04/03/21 Principal diagnosis: COVID-19 infection; DM II; Bilateral pneumonia; Obesity; HTN Interval history: Patient is seen today for: Acute hypoxemic respiratory failure; COVID-19 infection; DM II; Bilateral pneumonia; Obesity; HTN Seen and examined at bedside; 24hour events reviewed; nursing and respiratory care staff consulted; no adverse overnight events reported to me; resting in bed; remains on MVS; on SBT but tolerating PSV tenuously today; AMS is persistent; no emesis or overt aspiration Objective Vital Signs - 12hr 04/03/21 04/03/21 04/03/21 01:00 01:16 01:30 Temperature Pulse Rate 110 H 111 H 111 H Pulse Rate [ Bilateral Throughout] Pulse Rate [ From Monitor] Respiratory 26 H 27 H 26 H Rate Respiratory Rate [Bilateral Throughout] Blood Pressure 140/78 140/78 140/78 O2 Sat by Pulse 93 91 92 Oximetry O2 Sat by Pulse Oximetry [ Assessment] 04/03/21 04/03/21 04/03/21 01:46 02:00 02:16 Temperature Pulse Rate 111 H 110 H 111 H Pulse Rate [ Bilateral Throughout] Pulse Rate [ From Monitor] Respiratory 25 H 23 25 H Rate Respiratory Rate [Bilateral Throughout] Blood Pressure 140/78 139/95 139/95 O2 Sat by Pulse 92 93 91 Oximetry O2 Sat by Pulse Oximetry [ Assessment] 04/03/21 04/03/21 04/03/21 02:30 02:42 02:46 Temperature 99.6 F Pulse Rate 112 H 111 H Pulse Rate [ Bilateral Throughout] Pulse Rate [ From Monitor] Respiratory 28 H 24 Rate Respiratory Rate [Bilateral Throughout] Blood Pressure 139/95 139/95 O2 Sat by Pulse 90 91 Oximetry O2 Sat by Pulse Oximetry [ Assessment] 04/03/21 04/03/21 04/03/21 03:00 03:16 03:30 Temperature Pulse Rate 111 H 112 H 112 H Pulse Rate [ Bilateral Throughout] Pulse Rate [ From Monitor] Respiratory 25 H 29 H 28 H Rate Respiratory Rate [Bilateral Throughout] Blood Pressure 135/96 135/96 135/96 O2 Sat by Pulse 92 91 91 Oximetry O2 Sat by Pulse Oximetry [ Assessment] 04/03/21 04/03/21 04/03/21 03:32 03:46 04:00 Temperature 100.3 F H Pulse Rate 114 H 114 H Pulse Rate [ Bilateral Throughout] Pulse Rate [ 19 L From Monitor] Respiratory 30 H 29 H Rate Respiratory Rate [Bilateral Throughout] Blood Pressure 135/96 157/97 O2 Sat by Pulse 91 92 Oximetry O2 Sat by Pulse Oximetry [ Assessment] 04/03/21 04/03/21 04/03/21 04:16 04:30 04:46 Temperature Pulse Rate 111 H 112 H 110 H Pulse Rate [ Bilateral Throughout] Pulse Rate [ From Monitor] Respiratory 26 H 26 H 24 Rate Respiratory Rate [Bilateral Throughout] Blood Pressure 157/97 157/97 157/97 O2 Sat by Pulse 93 93 93 Oximetry O2 Sat by Pulse Oximetry [ Assessment] 04/03/21 04/03/21 04/03/21 05:00 05:16 05:19 Temperature Pulse Rate 110 H 110 H 117 H Pulse Rate [ Bilateral Throughout] Pulse Rate [ From Monitor] Respiratory 25 H 25 H Rate Respiratory Rate [Bilateral Throughout] Blood Pressure 178/114 178/114 184/113 O2 Sat by Pulse 93 89 Oximetry O2 Sat by Pulse Oximetry [ Assessment] 04/03/21 04/03/21 04/03/21 05:30 05:46 06:00 Temperature Pulse Rate 113 H 109 H 108 H Pulse Rate [ Bilateral Throughout] Pulse Rate [ From Monitor] Respiratory 28 H 25 H 24 Rate Respiratory Rate [Bilateral Throughout] Blood Pressure 184/113 184/113 119/67 O2 Sat by Pulse 92 93 93 Oximetry O2 Sat by Pulse Oximetry [ Assessment] 04/03/21 04/03/21 04/03/21 06:16 06:30 06:46 Temperature Pulse Rate 106 H 105 H 104 H Pulse Rate [ Bilateral Throughout] Pulse Rate [ From Monitor] Respiratory 24 22 Rate Respiratory Rate [Bilateral Throughout] Blood Pressure 119/67 119/67 119/67 O2 Sat by Pulse 95 95 95 Oximetry O2 Sat by Pulse Oximetry [ Assessment] 04/03/21 04/03/21 04/03/21 07:00 07:16 07:30 Temperature 99.3 F Pulse Rate 106 H 105 H 104 H Pulse Rate [ Bilateral Throughout] Pulse Rate [ From Monitor] Respiratory 24 22 Rate Respiratory Rate [Bilateral Throughout] Blood Pressure 128/73 128/73 128/73 O2 Sat by Pulse 94 94 94 Oximetry O2 Sat by Pulse Oximetry [ Assessment] 04/03/21 04/03/21 04/03/21 07:46 08:00 08:15 Temperature 99.3 F Pulse Rate 104 H 102 H 105 H Pulse Rate [ Bilateral Throughout] Pulse Rate [ 102 H From Monitor] Respiratory 21 22 Rate Respiratory Rate [Bilateral Throughout] Blood Pressure 128/73 125/66 126/72 O2 Sat by Pulse 94 94 96 Oximetry O2 Sat by Pulse Oximetry [ Assessment] 04/03/21 04/03/21 04/03/21 08:16 08:17 08:30 Temperature Pulse Rate 102 H 108 H Pulse Rate [ 105 H Bilateral Throughout] Pulse Rate [ From Monitor] Respiratory 22 51 H Rate Respiratory 19 Rate [Bilateral Throughout] Blood Pressure 125/66 125/66 O2 Sat by Pulse 94 96 Oximetry O2 Sat by Pulse 93 Oximetry [ Assessment] 04/03/21 04/03/21 04/03/21 08:46 09:00 09:14 Temperature Pulse Rate 105 H 105 H Pulse Rate [ Bilateral Throughout] Pulse Rate [ From Monitor] Respiratory 22 22 Rate Respiratory Rate [Bilateral Throughout] Blood Pressure 125/66 126/72 O2 Sat by Pulse 96 96 96 Oximetry O2 Sat by Pulse Oximetry [ Assessment] 04/03/21 04/03/21 04/03/21 10:00 10:01 11:39 Temperature 98.5 F Pulse Rate 103 H 103 H Pulse Rate [ Bilateral Throughout] Pulse Rate [ From Monitor] Respiratory Rate Respiratory Rate [Bilateral Throughout] Blood Pressure 126/72 122/64 O2 Sat by Pulse Oximetry O2 Sat by Pulse Oximetry [ Assessment] 04/03/21 12:06 Temperature Pulse Rate 105 H Pulse Rate [ Bilateral Throughout] Pulse Rate [ From Monitor] Respiratory Rate Respiratory Rate [Bilateral Throughout] Blood Pressure 122/70 O2 Sat by Pulse 94 Oximetry O2 Sat by Pulse Oximetry [ Assessment] Constitutional: no acute distress, agitated, other (elderly obese male with mildly increased respiratory effort at rest) Eyes: non-icteric ENT: oropharynx moist, other (+ midline tracheostomy) Neck: supple, no lymphadenopathy, no JVD, other (large circumference) Effort: mildly labored Ascultation: Bilateral: diminished breath sounds, rhonchi Percussion: Bilateral: not dull Cardiovascular: regular rate and rhythm, other (tachycardia, S1,S2) Gastrointestinal: normoactive bowel sounds, soft, non-tender, non-distended (protuberant) Integumentary: normal Extremities: no cyanosis, pulses normal, no ischemia or petechiae, edema, other Neurologic: non-focal exam (grossly), pupils equal and round, other (sedated) Psychiatric: other (unable to assess re: AMS) CBC and BMP: 04/04/21 04:33 04/04/21 04:33 ABG, PT/INR, D-dimer: ABG ABG pH 7.397 pH Units (7.350-7.450) 03/31/21 12:50 POC ABG pCO2 71.9 mmHg (32.0-48.0) H 03/12/21 21:54 ABG pCO2 58.1 mm Hg 03/31/21 12:50 POC ABG pO2 53.6 mmHg (83-108) L 03/12/21 21:54 ABG pO2 99.4 mm Hg (80.0-90.0) H 03/31/21 12:50 POC ABG HCO3 30.0 03/12/21 21:54 ABG O2 Saturation 97.3 % (95.0-99.0) 03/31/21 12:50 PT/INR, D-dimer PT 13.0 Sec. (12.2-14.9) 03/29/21 04:50 INR 0.88 (0.87-1.13) 03/29/21 04:50 D-Dimer 1359.12 ng/mlDDU (0-234) H 03/17/21 04:40 Abnormal lab findings: Abnormal Labs 03/08/21 03/08/21 03/08/21 20:24 20:24 20:24 WBC 22.6 H RBC 5.44 H Hgb 15.7 H Hct 49.2 H MCV MCHC RDW Plt Count Lymph % (Auto) [place] % (Auto) Lymph # (Auto) [place] # (Auto) Seg Neutrophils % Seg Neuts % (Manual) 83.0 H Lymphocytes % (Manual) 9.0 L Monocytes % (Manual) 8.0 H Nucleated RBC % Seg Neutrophils # Seg Neutrophils # Man 18.8 H Lymphocytes # (Manual) Monocytes # (Manual) 1.8 H PT 16.1 H INR 1.17 H D-Dimer > 25236 H ABG pH POC ABG pCO2 POC ABG pO2 ABG pO2 ABG HCO3 ABG O2 Saturation ABG Base Excess ABG Hemoglobin ABG Oxyhemoglobin ABG Sodium ABG Potassium ABG Glucose Oxyhemoglobin Sodium 136 L Potassium Chloride 93.9 L Carbon Dioxide BUN 29 H Creatinine Glucose 208 H POC Glucose Lactic Acid Calcium Phosphorus Magnesium Ferritin Lactate Dehydrogenase 624 H C-Reactive Protein 18.00 H NT-Pro-B Natriuret Pep 1053 H Total Protein Albumin Triglycerides Arterial Blood Glucose Ur Specific [place] Coronavirus (PCR) 03/08/21 03/08/21 03/09/21 20:24 20:24 04:10 WBC RBC Hgb Hct MCV MCHC RDW Plt Count Lymph % (Auto) [place] % (Auto) Lymph # (Auto) [place] # (Auto) Seg Neutrophils % Seg Neuts % (Manual) Lymphocytes % (Manual) Monocytes % (Manual) Nucleated RBC % Seg Neutrophils # Seg Neutrophils # Man Lymphocytes # (Manual) Monocytes # (Manual) PT INR D-Dimer ABG pH POC ABG pCO2 POC ABG pO2 ABG pO2 ABG HCO3 ABG O2 Saturation ABG Base Excess ABG Hemoglobin ABG Oxyhemoglobin ABG Sodium ABG Potassium ABG Glucose Oxyhemoglobin Sodium Potassium Chloride Carbon Dioxide BUN Creatinine Glucose POC Glucose Lactic Acid 2.10 H* Calcium Phosphorus Magnesium Ferritin 877.5 H Lactate Dehydrogenase C-Reactive Protein NT-Pro-B Natriuret Pep Total Protein Albumin Triglycerides Arterial Blood Glucose Ur Specific [place] 1.041 H Coronavirus (PCR) 03/09/21 03/09/21 03/09/21 07:46 08:00 13:01 WBC RBC Hgb Hct MCV MCHC RDW Plt Count Lymph % (Auto) [place] % (Auto) Lymph # (Auto) [place] # (Auto) Seg Neutrophils % Seg Neuts % (Manual) Lymphocytes % (Manual) Monocytes % (Manual) Nucleated RBC % Seg Neutrophils # Seg Neutrophils # Man Lymphocytes # (Manual) Monocytes # (Manual) PT INR D-Dimer ABG pH POC ABG pCO2 POC ABG pO2 ABG pO2 ABG HCO3 ABG O2 Saturation ABG Base Excess ABG Hemoglobin ABG Oxyhemoglobin ABG Sodium ABG Potassium ABG Glucose Oxyhemoglobin Sodium Potassium Chloride Carbon Dioxide BUN Creatinine Glucose POC Glucose 191 H 182 H Lactic Acid Calcium Phosphorus Magnesium Ferritin Lactate Dehydrogenase C-Reactive Protein NT-Pro-B Natriuret Pep Total Protein Albumin Triglycerides Arterial Blood Glucose Ur Specific [place] Coronavirus (PCR) Positive A 03/09/21 03/09/21 03/09/21 15:19 17:48 18:10 WBC RBC Hgb Hct MCV MCHC RDW Plt Count Lymph % (Auto) [place] % (Auto) Lymph # (Auto) [place] # (Auto) Seg Neutrophils % Seg Neuts % (Manual) Lymphocytes % (Manual) Monocytes % (Manual) Nucleated RBC % Seg Neutrophils # Seg Neutrophils # Man Lymphocytes # (Manual) Monocytes # (Manual) PT INR D-Dimer ABG pH POC ABG pCO2 POC ABG pO2 ABG pO2 47.3 L ABG HCO3 26.3 H ABG O2 Saturation 83.7 L ABG Base Excess ABG Hemoglobin ABG Oxyhemoglobin ABG Sodium ABG Potassium ABG Glucose Oxyhemoglobin 82.1 L Sodium Potassium Chloride Carbon Dioxide BUN 29 H Creatinine Glucose 214 H POC Glucose 194 H Lactic Acid Calcium Phosphorus Magnesium Ferritin Lactate Dehydrogenase C-Reactive Protein NT-Pro-B Natriuret Pep Total Protein Albumin 3.4 L Triglycerides Arterial Blood Glucose Ur Specific [place] Coronavirus (PCR) 03/09/21 03/10/21 03/10/21 20:40 04:29 04:29 WBC 20.6 H RBC 5.07 H Hgb Hct 46.2 H MCV MCHC RDW Plt Count Lymph % (Auto) [place] % (Auto) Lymph # (Auto) [place] # (Auto) Seg Neutrophils % Seg Neuts % (Manual) 94.0 H Lymphocytes % (Manual) 1.0 L Monocytes % (Manual) Nucleated RBC % 3.0 H Seg Neutrophils # Seg Neutrophils # Man 19.4 H Lymphocytes # (Manual) 0.2 L Monocytes # (Manual) 1.0 H PT INR D-Dimer ABG pH POC ABG pCO2 POC ABG pO2 ABG pO2 ABG HCO3 ABG O2 Saturation ABG Base Excess ABG Hemoglobin ABG Oxyhemoglobin ABG Sodium ABG Potassium ABG Glucose Oxyhemoglobin Sodium Potassium Chloride Carbon Dioxide BUN 29 H Creatinine Glucose 188 H POC Glucose 176 H Lactic Acid Calcium Phosphorus Magnesium Ferritin Lactate Dehydrogenase C-Reactive Protein NT-Pro-B Natriuret Pep Total Protein Albumin 3.3 L Triglycerides Arterial Blood Glucose Ur Specific [place] Coronavirus (PCR) 03/10/21 03/10/21 03/10/21 05:22 10:27 15:25 WBC RBC Hgb Hct MCV MCHC RDW Plt Count Lymph % (Auto) [place] % (Auto) Lymph # (Auto) [place] # (Auto) Seg Neutrophils % Seg Neuts % (Manual) Lymphocytes % (Manual) Monocytes % (Manual) Nucleated RBC % Seg Neutrophils # Seg Neutrophils # Man Lymphocytes # (Manual) Monocytes # (Manual) PT INR D-Dimer ABG pH 7.488 H 7.488 H POC ABG pCO2 POC ABG pO2 ABG pO2 47.7 L 50.5 L ABG HCO3 ABG O2 Saturation 86.2 L 87.9 L ABG Base Excess ABG Hemoglobin ABG Oxyhemoglobin ABG Sodium ABG Potassium ABG Glucose Oxyhemoglobin 84.6 L 86.2 L Sodium Potassium Chloride Carbon Dioxide BUN Creatinine Glucose POC Glucose 155 H Lactic Acid Calcium Phosphorus Magnesium Ferritin Lactate Dehydrogenase C-Reactive Protein NT-Pro-B Natriuret Pep Total Protein Albumin Triglycerides Arterial Blood Glucose Ur Specific [place] Coronavirus (PCR) 03/10/21 03/10/21 03/11/21 18:10 18:55 00:07 WBC RBC Hgb Hct MCV MCHC RDW Plt Count Lymph % (Auto) [place] % (Auto) Lymph # (Auto) [place] # (Auto) Seg Neutrophils % Seg Neuts % (Manual) Lymphocytes % (Manual) Monocytes % (Manual) Nucleated RBC % Seg Neutrophils # Seg Neutrophils # Man Lymphocytes # (Manual) Monocytes # (Manual) PT INR D-Dimer ABG pH 7.343 L POC ABG pCO2 POC ABG pO2 ABG pO2 60.4 L ABG HCO3 27.9 H ABG O2 Saturation 88.7 L ABG Base Excess ABG Hemoglobin ABG Oxyhemoglobin ABG Sodium ABG Potassium ABG Glucose Oxyhemoglobin 86.9 L Sodium Potassium Chloride Carbon Dioxide BUN Creatinine Glucose POC Glucose 187 H 139 H Lactic Acid Calcium Phosphorus Magnesium Ferritin Lactate Dehydrogenase C-Reactive Protein NT-Pro-B Natriuret Pep Total Protein Albumin Triglycerides Arterial Blood Glucose Ur Specific [place] Coronavirus (PCR) 03/11/21 03/11/21 03/11/21 02:09 04:28 08:06 WBC RBC Hgb Hct MCV MCHC RDW Plt Count Lymph % (Auto) [place] % (Auto) Lymph # (Auto) [place] # (Auto) Seg Neutrophils % Seg Neuts % (Manual) Lymphocytes % (Manual) Monocytes % (Manual) Nucleated RBC % Seg Neutrophils # Seg Neutrophils # Man Lymphocytes # (Manual) Monocytes # (Manual) PT INR D-Dimer ABG pH 7.277 L POC ABG pCO2 55.9 H POC ABG pO2 54.4 L ABG pO2 ABG HCO3 ABG O2 Saturation ABG Base Excess ABG Hemoglobin ABG Oxyhemoglobin 83.0 L ABG Sodium ABG Potassium 4.8 H ABG Glucose 180 H Oxyhemoglobin Sodium Potassium Chloride Carbon Dioxide BUN 38 H Creatinine Glucose 249 H POC Glucose 278 H Lactic Acid Calcium Phosphorus Magnesium Ferritin Lactate Dehydrogenase C-Reactive Protein NT-Pro-B Natriuret Pep Total Protein Albumin 3.2 L Triglycerides Arterial Blood Glucose 180 H Ur Specific [place] Coronavirus (PCR) 03/11/21 03/11/21 03/11/21 11:29 15:06 15:48 WBC RBC Hgb Hct MCV MCHC RDW Plt Count Lymph % (Auto) [place] % (Auto) Lymph # (Auto) [place] # (Auto) Seg Neutrophils % Seg Neuts % (Manual) Lymphocytes % (Manual) Monocytes % (Manual) Nucleated RBC % Seg Neutrophils # Seg Neutrophils # Man Lymphocytes # (Manual) Monocytes # (Manual) PT INR D-Dimer ABG pH 7.260 L POC ABG pCO2 POC ABG pO2 ABG pO2 53.5 L ABG HCO3 29.5 H ABG O2 Saturation 84.0 L ABG Base Excess ABG Hemoglobin ABG Oxyhemoglobin ABG Sodium ABG Potassium ABG Glucose Oxyhemoglobin 82.3 L Sodium Potassium Chloride Carbon Dioxide BUN Creatinine Glucose POC Glucose 288 H 295 H Lactic Acid Calcium Phosphorus Magnesium Ferritin Lactate Dehydrogenase C-Reactive Protein NT-Pro-B Natriuret Pep Total Protein Albumin Triglycerides Arterial Blood Glucose Ur Specific [place] Coronavirus (PCR) 03/12/21 03/12/21 03/12/21 00:01 05:24 08:03 WBC RBC Hgb Hct MCV MCHC RDW Plt Count Lymph % (Auto) [place] % (Auto) Lymph # (Auto) [place] # (Auto) Seg Neutrophils % Seg Neuts % (Manual) Lymphocytes % (Manual) Monocytes % (Manual) Nucleated RBC % Seg Neutrophils # Seg Neutrophils # Man Lymphocytes # (Manual) Monocytes # (Manual) PT INR D-Dimer ABG pH POC ABG pCO2 POC ABG pO2 ABG pO2 ABG HCO3 ABG O2 Saturation ABG Base Excess ABG Hemoglobin ABG Oxyhemoglobin ABG Sodium ABG Potassium ABG Glucose Oxyhemoglobin Sodium 135 L Potassium Chloride Carbon Dioxide BUN 48 H Creatinine Glucose 358 H POC Glucose 304 H 310 H Lactic Acid Calcium Phosphorus Magnesium Ferritin Lactate Dehydrogenase C-Reactive Protein NT-Pro-B Natriuret Pep Total Protein 6.0 L Albumin 2.9 L Triglycerides Arterial Blood Glucose Ur Specific [place] Coronavirus (PCR) 03/12/21 03/12/2103/12/22 08:03 10:43 11:31 WBC 14.6 H RBC Hgb Hct MCV MCHC RDW Plt Count Lymph % (Auto) [place] % (Auto) Lymph # (Auto) [place] # (Auto) Seg Neutrophils % Seg Neuts % (Manual) Lymphocytes % (Manual) Monocytes % (Manual) Nucleated RBC % Seg Neutrophils # Seg Neutrophils # Man Lymphocytes # (Manual) Monocytes # (Manual) PT INR D-Dimer ABG pH 7.248 L POC ABG pCO2 POC ABG pO2 ABG pO2 73.7 L ABG HCO3 32.0 H ABG O2 Saturation 93.9 L ABG Base Excess ABG Hemoglobin ABG Oxyhemoglobin ABG Sodium ABG Potassium ABG Glucose Oxyhemoglobin 92.1 L Sodium Potassium Chloride Carbon Dioxide BUN Creatinine Glucose POC Glucose 359 H Lactic Acid Calcium Phosphorus Magnesium Ferritin Lactate Dehydrogenase C-Reactive Protein NT-Pro-B Natriuret Pep Total Protein Albumin Triglycerides Arterial Blood Glucose Ur Specific [place] Coronavirus (PCR) 03/12/21 03/12/21 03/13/21 17:20 21:54 00:02 WBC RBC Hgb Hct MCV MCHC RDW Plt Count Lymph % (Auto) [place] % (Auto) Lymph # (Auto) [place] # (Auto) Seg Neutrophils % Seg Neuts % (Manual) Lymphocytes % (Manual) Monocytes % (Manual) Nucleated RBC % Seg Neutrophils # Seg Neutrophils # Man Lymphocytes # (Manual) Monocytes # (Manual) PT INR D-Dimer ABG pH 7.238 L POC ABG pCO2 71.9 H POC ABG pO2 53.6 L ABG pO2 ABG HCO3 ABG O2 Saturation ABG Base Excess ABG Hemoglobin ABG Oxyhemoglobin 84.8 L ABG Sodium 134.2 L ABG Potassium 4.9 H ABG Glucose 306 H Oxyhemoglobin Sodium Potassium Chloride Carbon Dioxide BUN Creatinine Glucose POC Glucose 374 H 308 H Lactic Acid Calcium Phosphorus Magnesium Ferritin Lactate Dehydrogenase C-Reactive Protein NT-Pro-B Natriuret Pep Total Protein Albumin Triglycerides Arterial Blood Glucose 306 H Ur Specific [place] Coronavirus (PCR) 03/13/21 03/13/21 03/13/21 05:22 05:44 05:44 WBC 13.9 H RBC Hgb Hct MCV MCHC RDW Plt Count Lymph % (Auto) [place] % (Auto) Lymph # (Auto) [place] # (Auto) Seg Neutrophils % Seg Neuts % (Manual) Lymphocytes % (Manual) Monocytes % (Manual) Nucleated RBC % Seg Neutrophils # Seg Neutrophils # Man Lymphocytes # (Manual) Monocytes # (Manual) PT INR D-Dimer 3567.97 H ABG pH POC ABG pCO2 POC ABG pO2 ABG pO2 ABG HCO3 ABG O2 Saturation ABG Base Excess ABG Hemoglobin ABG Oxyhemoglobin ABG Sodium ABG Potassium ABG Glucose Oxyhemoglobin Sodium Potassium Chloride Carbon Dioxide BUN Creatinine Glucose POC Glucose 316 H Lactic Acid Calcium Phosphorus Magnesium Ferritin Lactate Dehydrogenase C-Reactive Protein NT-Pro-B Natriuret Pep Total Protein Albumin Triglycerides Arterial Blood Glucose Ur Specific [place] Coronavirus (PCR) 03/13/21 03/13/21 03/13/21 05:44 05:44 11:15 WBC RBC Hgb Hct MCV MCHC RDW Plt Count Lymph % (Auto) [place] % (Auto) Lymph # (Auto) [place] # (Auto) Seg Neutrophils % Seg Neuts % (Manual) Lymphocytes % (Manual) Monocytes % (Manual) Nucleated RBC % Seg Neutrophils # Seg Neutrophils # Man Lymphocytes # (Manual) Monocytes # (Manual) PT INR D-Dimer ABG pH 7.310 L POC ABG pCO2 POC ABG pO2 ABG pO2 52.3 L ABG HCO3 34.1 H ABG O2 Saturation 86.8 L ABG Base Excess 5.5 H ABG Hemoglobin 13.8 L ABG Oxyhemoglobin ABG Sodium ABG Potassium ABG Glucose Oxyhemoglobin 85.1 L Sodium Potassium Chloride Carbon Dioxide BUN Creatinine Glucose POC Glucose Lactic Acid Calcium Phosphorus Magnesium Ferritin 858.7 H Lactate Dehydrogenase 348 H C-Reactive Protein 2.80 H NT-Pro-B Natriuret Pep Total Protein Albumin Triglycerides Arterial Blood Glucose Ur Specific [place] Coronavirus (PCR) 03/13/21 03/13/21 03/13/21 11:21 15:47 19:23 WBC RBC Hgb Hct MCV MCHC RDW Plt Count Lymph % (Auto) [place] % (Auto) Lymph # (Auto) [place] # (Auto) Seg Neutrophils % Seg Neuts % (Manual) Lymphocytes % (Manual) Monocytes % (Manual) Nucleated RBC % Seg Neutrophils # Seg Neutrophils # Man Lymphocytes # (Manual) Monocytes # (Manual) PT INR D-Dimer ABG pH POC ABG pCO2 POC ABG pO2 ABG pO2 ABG HCO3 ABG O2 Saturation ABG Base Excess ABG Hemoglobin ABG Oxyhemoglobin ABG Sodium ABG Potassium ABG Glucose Oxyhemoglobin Sodium 136 L Potassium 5.9 H Chloride Carbon Dioxide BUN 50 H Creatinine Glucose 397 H POC Glucose 322 H 317 H Lactic Acid Calcium Phosphorus Magnesium Ferritin Lactate Dehydrogenase C-Reactive Protein NT-Pro-B Natriuret Pep Total Protein Albumin Triglycerides Arterial Blood Glucose Ur Specific [place] Coronavirus (PCR) 03/13/21 03/14/21 03/14/21 23:46 05:32 05:50 WBC 11.6 H RBC Hgb Hct MCV MCHC RDW Plt Count Lymph % (Auto) [place] % (Auto) Lymph # (Auto) [place] # (Auto) Seg Neutrophils % Seg Neuts % (Manual) Lymphocytes % (Manual) Monocytes % (Manual) Nucleated RBC % Seg Neutrophils # Seg Neutrophils # Man Lymphocytes # (Manual) Monocytes # (Manual) PT INR D-Dimer ABG pH POC ABG pCO2 POC ABG pO2 ABG pO2 ABG HCO3 ABG O2 Saturation ABG Base Excess ABG Hemoglobin ABG Oxyhemoglobin ABG Sodium ABG Potassium ABG Glucose Oxyhemoglobin Sodium Potassium Chloride Carbon Dioxide BUN Creatinine Glucose POC Glucose 332 H 316 H Lactic Acid Calcium Phosphorus Magnesium Ferritin Lactate Dehydrogenase C-Reactive Protein NT-Pro-B Natriuret Pep Total Protein Albumin Triglycerides Arterial Blood Glucose Ur Specific [place] Coronavirus (PCR) 03/14/21 03/14/21 03/14/21 05:50 11:33 16:53 WBC RBC Hgb Hct MCV MCHC RDW Plt Count Lymph % (Auto) [place] % (Auto) Lymph # (Auto) [place] # (Auto) Seg Neutrophils % Seg Neuts % (Manual) Lymphocytes % (Manual) Monocytes % (Manual) Nucleated RBC % Seg Neutrophils # Seg Neutrophils # Man Lymphocytes # (Manual) Monocytes # (Manual) PT INR D-Dimer ABG pH POC ABG pCO2 POC ABG pO2 ABG pO2 ABG HCO3 ABG O2 Saturation ABG Base Excess ABG Hemoglobin ABG Oxyhemoglobin ABG Sodium ABG Potassium ABG Glucose Oxyhemoglobin Sodium Potassium 5.9 H Chloride Carbon Dioxide 31 H BUN 48 H Creatinine Glucose 380 H POC Glucose 315 H 235 H Lactic Acid Calcium Phosphorus Magnesium 3.40 H Ferritin Lactate Dehydrogenase C-Reactive Protein NT-Pro-B Natriuret Pep Total Protein Albumin Triglycerides Arterial Blood Glucose Ur Specific [place] Coronavirus (PCR) 03/14/21 03/14/21 03/15/21 18:34 23:27 01:22 WBC RBC Hgb Hct 46.3 H MCV MCHC RDW Plt Count Lymph % (Auto) [place] % (Auto) Lymph # (Auto) [place] # (Auto) Seg Neutrophils % Seg Neuts % (Manual) Lymphocytes % (Manual) Monocytes % (Manual) Nucleated RBC % Seg Neutrophils # Seg Neutrophils # Man Lymphocytes # (Manual) Monocytes # (Manual) PT INR D-Dimer ABG pH POC ABG pCO2 POC ABG pO2 ABG pO2 ABG HCO3 ABG O2 Saturation ABG Base Excess ABG Hemoglobin ABG Oxyhemoglobin ABG Sodium ABG Potassium ABG Glucose Oxyhemoglobin Sodium 146 H Potassium Chloride Carbon Dioxide 34 H BUN 49 H Creatinine Glucose 285 H POC Glucose 203 H Lactic Acid Calcium Phosphorus Magnesium Ferritin Lactate Dehydrogenase C-Reactive Protein NT-Pro-B Natriuret Pep Total Protein Albumin Triglycerides Arterial Blood Glucose Ur Specific [place] Coronavirus (PCR) 03/15/21 03/15/21 03/15/21 04:00 06:06 06:06 WBC RBC Hgb Hct MCV MCHC RDW Plt Count Lymph % (Auto) [place] % (Auto) Lymph # (Auto) [place] # (Auto) Seg Neutrophils % Seg Neuts % (Manual) Lymphocytes % (Manual) Monocytes % (Manual) Nucleated RBC % Seg Neutrophils # Seg Neutrophils # Man Lymphocytes # (Manual) Monocytes # (Manual) PT INR D-Dimer 1781.79 H ABG pH POC ABG pCO2 POC ABG pO2 ABG pO2 ABG HCO3 ABG O2 Saturation ABG Base Excess ABG Hemoglobin ABG Oxyhemoglobin ABG Sodium ABG Potassium ABG Glucose Oxyhemoglobin Sodium 148 H Potassium 5.7 H D Chloride 108.0 H Carbon Dioxide 31 H BUN 46 H Creatinine Glucose 139 H POC Glucose Lactic Acid Calcium Phosphorus 4.80 H D Magnesium 3.00 H Ferritin 976.4 H Lactate Dehydrogenase 630 H C-Reactive Protein NT-Pro-B Natriuret Pep Total Protein Albumin Triglycerides Arterial Blood Glucose Ur Specific [place] Coronavirus (PCR) 03/15/21 03/15/21 03/15/21 11:56 14:05 17:09 WBC RBC Hgb Hct MCV MCHC RDW Plt Count Lymph % (Auto) [place] % (Auto) Lymph # (Auto) [place] # (Auto) Seg Neutrophils % Seg Neuts % (Manual) Lymphocytes % (Manual) Monocytes % (Manual) Nucleated RBC % Seg Neutrophils # Seg Neutrophils # Man Lymphocytes # (Manual) Monocytes # (Manual) PT INR D-Dimer ABG pH POC ABG pCO2 POC ABG pO2 ABG pO2 52.1 L ABG HCO3 36.6 H ABG O2 Saturation 87.6 L ABG Base Excess 9.5 H ABG Hemoglobin ABG Oxyhemoglobin ABG Sodium ABG Potassium ABG Glucose Oxyhemoglobin 85.7 L Sodium Potassium Chloride Carbon Dioxide BUN Creatinine Glucose POC Glucose 219 H 263 H Lactic Acid Calcium Phosphorus Magnesium Ferritin Lactate Dehydrogenase C-Reactive Protein NT-Pro-B Natriuret Pep Total Protein Albumin Triglycerides Arterial Blood Glucose Ur Specific [place] Coronavirus (PCR) 03/16/21 03/16/21 03/16/21 00:32 04:11 04:11 WBC 11.9 H RBC Hgb Hct MCV MCHC 30 L RDW Plt Count Lymph % (Auto) [place] % (Auto) Lymph # (Auto) [place] # (Auto) Seg Neutrophils % Seg Neuts % (Manual) Lymphocytes % (Manual) Monocytes % (Manual) Nucleated RBC % Seg Neutrophils # Seg Neutrophils # Man Lymphocytes # (Manual) Monocytes # (Manual) PT INR D-Dimer ABG pH POC ABG pCO2 POC ABG pO2 ABG pO2 ABG HCO3 ABG O2 Saturation ABG Base Excess ABG Hemoglobin ABG Oxyhemoglobin ABG Sodium ABG Potassium ABG Glucose Oxyhemoglobin Sodium 151 H Potassium Chloride Carbon Dioxide 35 H BUN 48 H Creatinine Glucose 152 H POC Glucose 165 H Lactic Acid Calcium Phosphorus Magnesium Ferritin Lactate Dehydrogenase C-Reactive Protein NT-Pro-B Natriuret Pep Total Protein Albumin Triglycerides Arterial Blood Glucose Ur Specific [place] Coronavirus (PCR) 03/16/21 03/16/21 03/16/21 04:11 05:26 11:35 WBC RBC Hgb Hct MCV MCHC RDW Plt Count Lymph % (Auto) [place] % (Auto) Lymph # (Auto) [place] # (Auto) Seg Neutrophils % Seg Neuts % (Manual) Lymphocytes % (Manual) Monocytes % (Manual) Nucleated RBC % Seg Neutrophils # Seg Neutrophils # Man Lymphocytes # (Manual) Monocytes # (Manual) PT INR D-Dimer ABG pH POC ABG pCO2 POC ABG pO2 ABG pO2 ABG HCO3 ABG O2 Saturation ABG Base Excess ABG Hemoglobin ABG Oxyhemoglobin ABG Sodium ABG Potassium ABG Glucose Oxyhemoglobin Sodium Potassium Chloride Carbon Dioxide BUN Creatinine Glucose POC Glucose 162 H 187 H Lactic Acid Calcium Phosphorus Magnesium Ferritin Lactate Dehydrogenase C-Reactive Protein NT-Pro-B Natriuret Pep Total Protein Albumin Triglycerides 267 H Arterial Blood Glucose Ur Specific [place] Coronavirus (PCR) 03/16/21 03/16/21 03/16/21 17:29 22:25 23:22 WBC RBC Hgb Hct MCV MCHC RDW Plt Count Lymph % (Auto) [place] % (Auto) Lymph # (Auto) [place] # (Auto) Seg Neutrophils % Seg Neuts % (Manual) Lymphocytes % (Manual) Monocytes % (Manual) Nucleated RBC % Seg Neutrophils # Seg Neutrophils # Man Lymphocytes # (Manual) Monocytes # (Manual) PT INR D-Dimer ABG pH POC ABG pCO2 POC ABG pO2 ABG pO2 ABG HCO3 ABG O2 Saturation ABG Base Excess ABG Hemoglobin ABG Oxyhemoglobin ABG Sodium ABG Potassium ABG Glucose Oxyhemoglobin Sodium Potassium Chloride Carbon Dioxide BUN Creatinine Glucose POC Glucose 237 H 165 H 189 H Lactic Acid Calcium Phosphorus Magnesium Ferritin Lactate Dehydrogenase C-Reactive Protein NT-Pro-B Natriuret Pep Total Protein Albumin Triglycerides Arterial Blood Glucose Ur Specific [place] Coronavirus (PCR) 03/17/21 03/17/21 03/17/21 04:40 04:40 04:40 WBC 14.1 H RBC Hgb Hct MCV MCHC RDW 15.3 H Plt Count Lymph % (Auto) 12.6 L [place] % (Auto) 11.3 H Lymph # (Auto) [place] # (Auto) 1.6 H Seg Neutrophils % 74.9 H Seg Neuts % (Manual) Lymphocytes % (Manual) Monocytes % (Manual) Nucleated RBC % Seg Neutrophils # 10.5 H Seg Neutrophils # Man Lymphocytes # (Manual) Monocytes # (Manual) PT INR D-Dimer 1359.12 H ABG pH POC ABG pCO2 POC ABG pO2 ABG pO2 ABG HCO3 ABG O2 Saturation ABG Base Excess ABG Hemoglobin ABG Oxyhemoglobin ABG Sodium ABG Potassium ABG Glucose Oxyhemoglobin Sodium 148 H Potassium Chloride 107.5 H Carbon Dioxide 33 H BUN 42 H Creatinine Glucose 183 H POC Glucose Lactic Acid Calcium Phosphorus Magnesium 2.70 H Ferritin Lactate Dehydrogenase C-Reactive Protein NT-Pro-B Natriuret Pep Total Protein Albumin Triglycerides Arterial Blood Glucose Ur Specific [place] Coronavirus (PCR) 01/21/22 01/21/22 01/21/22 05:53 11:05 11:51 WBC RBC Hgb Hct MCV MCHC RDW Plt Count Lymph % (Auto) [place] % (Auto) Lymph # (Auto) [place] # (Auto) Seg Neutrophils % Seg Neuts % (Manual) Lymphocytes % (Manual) Monocytes % (Manual) Nucleated RBC % Seg Neutrophils # Seg Neutrophils # Man Lymphocytes # (Manual) Monocytes # (Manual) PT INR D-Dimer ABG pH POC ABG pCO2 POC ABG pO2 ABG pO2 ABG HCO3 35.7 H ABG O2 Saturation ABG Base Excess 8.7 H ABG Hemoglobin ABG Oxyhemoglobin ABG Sodium ABG Potassium ABG Glucose Oxyhemoglobin 94.2 L Sodium Potassium Chloride Carbon Dioxide BUN Creatinine Glucose POC Glucose 176 H 197 H Lactic Acid Calcium Phosphorus Magnesium Ferritin Lactate Dehydrogenase C-Reactive Protein NT-Pro-B Natriuret Pep Total Protein Albumin Triglycerides Arterial Blood Glucose Ur Specific [place] Coronavirus (PCR) 03/17/21 03/17/21 03/17/21 16:54 21:10 23:33 WBC RBC Hgb Hct MCV MCHC RDW Plt Count Lymph % (Auto) [place] % (Auto) Lymph # (Auto) [place] # (Auto) Seg Neutrophils % Seg Neuts % (Manual) Lymphocytes % (Manual) Monocytes % (Manual) Nucleated RBC % Seg Neutrophils # Seg Neutrophils # Man Lymphocytes # (Manual) Monocytes # (Manual) PT INR D-Dimer ABG pH POC ABG pCO2 POC ABG pO2 ABG pO2 ABG HCO3 ABG O2 Saturation ABG Base Excess ABG Hemoglobin ABG Oxyhemoglobin ABG Sodium ABG Potassium ABG Glucose Oxyhemoglobin Sodium Potassium Chloride Carbon Dioxide BUN Creatinine Glucose POC Glucose 135 H 160 H 138 H Lactic Acid Calcium Phosphorus Magnesium Ferritin Lactate Dehydrogenase C-Reactive Protein NT-Pro-B Natriuret Pep Total Protein Albumin Triglycerides Arterial Blood Glucose Ur Specific [place] Coronavirus (PCR) 03/18/21 03/18/21 03/18/21 04:18 04:50 05:43 WBC RBC Hgb Hct MCV MCHC RDW Plt Count Lymph % (Auto) [place] % (Auto) Lymph # (Auto) [place] # (Auto) Seg Neutrophils % Seg Neuts % (Manual) Lymphocytes % (Manual) Monocytes % (Manual) Nucleated RBC % Seg Neutrophils # Seg Neutrophils # Man Lymphocytes # (Manual) Monocytes # (Manual) PT INR D-Dimer ABG pH POC ABG pCO2 POC ABG pO2 ABG pO2 59.8 L ABG HCO3 36.5 H ABG O2 Saturation 90.7 L ABG Base Excess 9.4 H ABG Hemoglobin 12.0 L ABG Oxyhemoglobin ABG Sodium ABG Potassium ABG Glucose Oxyhemoglobin 88.9 L Sodium Potassium Chloride 107.2 H Carbon Dioxide 34 H BUN 38 H Creatinine 0.7 L Glucose 136 H POC Glucose 128 H Lactic Acid Calcium Phosphorus Magnesium Ferritin Lactate Dehydrogenase C-Reactive Protein NT-Pro-B Natriuret Pep Total Protein Albumin Triglycerides Arterial Blood Glucose Ur Specific [place] Coronavirus (PCR) 03/18/21 03/18/21 03/18/21 11:20 17:35 23:35 WBC RBC Hgb Hct MCV MCHC RDW Plt Count Lymph % (Auto) [place] % (Auto) Lymph # (Auto) [place] # (Auto) Seg Neutrophils % Seg Neuts % (Manual) Lymphocytes % (Manual) Monocytes % (Manual) Nucleated RBC % Seg Neutrophils # Seg Neutrophils # Man Lymphocytes # (Manual) Monocytes # (Manual) PT INR D-Dimer ABG pH POC ABG pCO2 POC ABG pO2 ABG pO2 70.7 L ABG HCO3 33.6 H ABG O2 Saturation ABG Base Excess 8.0 H ABG Hemoglobin ABG Oxyhemoglobin ABG Sodium ABG Potassium ABG Glucose Oxyhemoglobin 93.7 L Sodium Potassium Chloride Carbon Dioxide BUN Creatinine Glucose POC Glucose 189 H 144 H Lactic Acid Calcium Phosphorus Magnesium Ferritin Lactate Dehydrogenase C-Reactive Protein NT-Pro-B Natriuret Pep Total Protein Albumin Triglycerides Arterial Blood Glucose Ur Specific [place] Coronavirus (PCR) 03/19/21 03/19/21 03/19/21 02:35 04:20 04:20 WBC 14.0 H RBC Hgb Hct MCV MCHC RDW Plt Count Lymph % (Auto) [place] % (Auto) Lymph # (Auto) [place] # (Auto) Seg Neutrophils % Seg Neuts % (Manual) Lymphocytes % (Manual) Monocytes % (Manual) Nucleated RBC % Seg Neutrophils # Seg Neutrophils # Man Lymphocytes # (Manual) Monocytes # (Manual) PT INR D-Dimer ABG pH POC ABG pCO2 POC ABG pO2 ABG pO2 ABG HCO3 32.0 H ABG O2 Saturation ABG Base Excess 5.2 H ABG Hemoglobin 13.6 L ABG Oxyhemoglobin ABG Sodium ABG Potassium ABG Glucose Oxyhemoglobin 94.6 L Sodium 146 H Potassium Chloride 109.3 H Carbon Dioxide BUN 36 H Creatinine Glucose 203 H POC Glucose Lactic Acid Calcium Phosphorus Magnesium Ferritin Lactate Dehydrogenase C-Reactive Protein NT-Pro-B Natriuret Pep Total Protein Albumin Triglycerides 254 H Arterial Blood Glucose Ur Specific [place] Coronavirus (PCR) 03/19/21 03/19/21 03/19/21 05:45 11:36 23:51 WBC RBC Hgb Hct MCV MCHC RDW Plt Count Lymph % (Auto) [place] % (Auto) Lymph # (Auto) [place] # (Auto) Seg Neutrophils % Seg Neuts % (Manual) Lymphocytes % (Manual) Monocytes % (Manual) Nucleated RBC % Seg Neutrophils # Seg Neutrophils # Man Lymphocytes # (Manual) Monocytes # (Manual) PT INR D-Dimer ABG pH POC ABG pCO2 POC ABG pO2 ABG pO2 ABG HCO3 ABG O2 Saturation ABG Base Excess ABG Hemoglobin ABG Oxyhemoglobin ABG Sodium ABG Potassium ABG Glucose Oxyhemoglobin Sodium Potassium Chloride Carbon Dioxide BUN Creatinine Glucose POC Glucose 164 H 172 H 140 H Lactic Acid Calcium Phosphorus Magnesium Ferritin Lactate Dehydrogenase C-Reactive Protein NT-Pro-B Natriuret Pep Total Protein Albumin Triglycerides Arterial Blood Glucose Ur Specific [place] Coronavirus (PCR) 03/20/21 03/20/21 03/20/21 03:29 04:45 04:45 WBC RBC Hgb Hct MCV 95 H MCHC RDW 15.7 H Plt Count Lymph % (Auto) [place] % (Auto) Lymph # (Auto) [place] # (Auto) Seg Neutrophils % Seg Neuts % (Manual) Lymphocytes % (Manual) Monocytes % (Manual) Nucleated RBC % Seg Neutrophils # Seg Neutrophils # Man Lymphocytes # (Manual) Monocytes # (Manual) PT INR D-Dimer ABG pH 7.349 L POC ABG pCO2 POC ABG pO2 ABG pO2 ABG HCO3 33.7 H ABG O2 Saturation ABG Base Excess 6.4 H ABG Hemoglobin 11.8 L ABG Oxyhemoglobin ABG Sodium ABG Potassium ABG Glucose Oxyhemoglobin 93.9 L Sodium 146 H Potassium 5.5 H Chloride 111.1 H Carbon Dioxide BUN 34 H Creatinine 0.7 L Glucose 145 H POC Glucose Lactic Acid Calcium Phosphorus Magnesium 2.50 H Ferritin Lactate Dehydrogenase C-Reactive Protein NT-Pro-B Natriuret Pep Total Protein Albumin Triglycerides Arterial Blood Glucose Ur Specific [place] Coronavirus (PCR) 01/03/20/21 03/20/21 05:41 09:08 11:54 WBC RBC Hgb Hct MCV MCHC RDW Plt Count Lymph % (Auto) [place] % (Auto) Lymph # (Auto) [place] # (Auto) Seg Neutrophils % Seg Neuts % (Manual) Lymphocytes % (Manual) Monocytes % (Manual) Nucleated RBC % Seg Neutrophils # Seg Neutrophils # Man Lymphocytes # (Manual) Monocytes # (Manual) PT INR D-Dimer ABG pH POC ABG pCO2 POC ABG pO2 ABG pO2 ABG HCO3 ABG O2 Saturation ABG Base Excess ABG Hemoglobin ABG Oxyhemoglobin ABG Sodium ABG Potassium ABG Glucose Oxyhemoglobin Sodium Potassium Chloride Carbon Dioxide BUN Creatinine Glucose POC Glucose 108 H 132 H 162 H Lactic Acid Calcium Phosphorus Magnesium Ferritin Lactate Dehydrogenase C-Reactive Protein NT-Pro-B Natriuret Pep Total Protein Albumin Triglycerides Arterial Blood Glucose Ur Specific [place] Coronavirus (PCR) 03/20/21 03/21/21 03/21/21 17:28 00:31 04:44 WBC RBC Hgb Hct MCV MCHC RDW Plt Count Lymph % (Auto) [place] % (Auto) Lymph # (Auto) [place] # (Auto) Seg Neutrophils % Seg Neuts % (Manual) Lymphocytes % (Manual) Monocytes % (Manual) Nucleated RBC % Seg Neutrophils # Seg Neutrophils # Man Lymphocytes # (Manual) Monocytes # (Manual) PT INR D-Dimer ABG pH POC ABG pCO2 POC ABG pO2 ABG pO2 ABG HCO3 ABG O2 Saturation ABG Base Excess ABG Hemoglobin ABG Oxyhemoglobin ABG Sodium ABG Potassium ABG Glucose Oxyhemoglobin Sodium Potassium Chloride 108.3 H Carbon Dioxide BUN 30 H Creatinine 0.7 L Glucose POC Glucose 160 H 122 H Lactic Acid Calcium Phosphorus Magnesium Ferritin Lactate Dehydrogenase C-Reactive Protein NT-Pro-B Natriuret Pep Total Protein Albumin Triglycerides Arterial Blood Glucose Ur Specific [place] Coronavirus (PCR) 03/21/21 03/21/21 03/21/21 09:18 10:09 13:20 WBC RBC Hgb Hct MCV MCHC RDW Plt Count Lymph % (Auto) [place] % (Auto) Lymph # (Auto) [place] # (Auto) Seg Neutrophils % Seg Neuts % (Manual) Lymphocytes % (Manual) Monocytes % (Manual) Nucleated RBC % Seg Neutrophils # Seg Neutrophils # Man Lymphocytes # (Manual) Monocytes # (Manual) PT INR D-Dimer ABG pH POC ABG pCO2 POC ABG pO2 ABG pO2 60.7 L ABG HCO3 30.6 H ABG O2 Saturation 93.6 L ABG Base Excess 5.3 H ABG Hemoglobin ABG Oxyhemoglobin ABG Sodium ABG Potassium ABG Glucose Oxyhemoglobin 91.7 L Sodium Potassium Chloride Carbon Dioxide BUN Creatinine Glucose POC Glucose 169 H 122 H Lactic Acid Calcium Phosphorus Magnesium Ferritin Lactate Dehydrogenase C-Reactive Protein NT-Pro-B Natriuret Pep Total Protein Albumin Triglycerides Arterial Blood Glucose Ur Specific [place] Coronavirus (PCR) 03/21/21 03/21/21 03/21/21 17:25 22:41 23:52 WBC RBC Hgb Hct MCV MCHC RDW Plt Count Lymph % (Auto) [place] % (Auto) Lymph # (Auto) [place] # (Auto) Seg Neutrophils % Seg Neuts % (Manual) Lymphocytes % (Manual) Monocytes % (Manual) Nucleated RBC % Seg Neutrophils # Seg Neutrophils # Man Lymphocytes # (Manual) Monocytes # (Manual) PT INR D-Dimer ABG pH POC ABG pCO2 POC ABG pO2 ABG pO2 ABG HCO3 ABG O2 Saturation ABG Base Excess ABG Hemoglobin ABG Oxyhemoglobin ABG Sodium ABG Potassium ABG Glucose Oxyhemoglobin Sodium Potassium Chloride Carbon Dioxide BUN Creatinine Glucose POC Glucose 121 H 139 H 140 H Lactic Acid Calcium Phosphorus Magnesium Ferritin Lactate Dehydrogenase C-Reactive Protein NT-Pro-B Natriuret Pep Total Protein Albumin Triglycerides Arterial Blood Glucose Ur Specific [place] Coronavirus (PCR) 03/22/21 03/22/21 03/22/21 05:58 07:26 07:26 WBC RBC Hgb Hct MCV MCHC 31 L RDW 16.1 H Plt Count Lymph % (Auto) [place] % (Auto) Lymph # (Auto) [place] # (Auto) Seg Neutrophils % Seg Neuts % (Manual) Lymphocytes % (Manual) Monocytes % (Manual) Nucleated RBC % Seg Neutrophils # Seg Neutrophils # Man Lymphocytes # (Manual) Monocytes # (Manual) PT INR D-Dimer ABG pH POC ABG pCO2 POC ABG pO2 ABG pO2 ABG HCO3 ABG O2 Saturation ABG Base Excess ABG Hemoglobin ABG Oxyhemoglobin ABG Sodium ABG Potassium ABG Glucose Oxyhemoglobin Sodium Potassium Chloride 108.5 H Carbon Dioxide BUN 44 H Creatinine Glucose 120 H POC Glucose 131 H Lactic Acid Calcium Phosphorus 5.80 H Magnesium 2.80 H Ferritin Lactate Dehydrogenase C-Reactive Protein NT-Pro-B Natriuret Pep Total Protein Albumin Triglycerides 305 H Arterial Blood Glucose Ur Specific [place] Coronavirus (PCR) 03/22/21 03/22/21 03/22/21 09:38 11:15 16:01 WBC RBC Hgb Hct MCV MCHC RDW Plt Count Lymph % (Auto) [place] % (Auto) Lymph # (Auto) [place] # (Auto) Seg Neutrophils % Seg Neuts % (Manual) Lymphocytes % (Manual) Monocytes % (Manual) Nucleated RBC % Seg Neutrophils # Seg Neutrophils # Man Lymphocytes # (Manual) Monocytes # (Manual) PT INR D-Dimer ABG pH POC ABG pCO2 POC ABG pO2 ABG pO2 70.0 L ABG HCO3 30.0 H ABG O2 Saturation 94.6 L ABG Base Excess 3.6 H ABG Hemoglobin 13.5 L ABG Oxyhemoglobin ABG Sodium ABG Potassium ABG Glucose Oxyhemoglobin 92.5 L Sodium Potassium Chloride Carbon Dioxide BUN Creatinine Glucose POC Glucose 186 H 148 H Lactic Acid Calcium Phosphorus Magnesium Ferritin Lactate Dehydrogenase C-Reactive Protein NT-Pro-B Natriuret Pep Total Protein Albumin Triglycerides Arterial Blood Glucose Ur Specific [place] Coronavirus (PCR) 03/22/21 03/22/21 03/23/21 21:13 23:48 07:04 WBC 11.7 H RBC Hgb Hct MCV 95 H MCHC RDW 16.1 H Plt Count Lymph % (Auto) [place] % (Auto) Lymph # (Auto) [place] # (Auto) Seg Neutrophils % Seg Neuts % (Manual) Lymphocytes % (Manual) Monocytes % (Manual) Nucleated RBC % Seg Neutrophils # Seg Neutrophils # Man Lymphocytes # (Manual) Monocytes # (Manual) PT INR D-Dimer ABG pH POC ABG pCO2 POC ABG pO2 ABG pO2 ABG HCO3 ABG O2 Saturation ABG Base Excess ABG Hemoglobin ABG Oxyhemoglobin ABG Sodium ABG Potassium ABG Glucose Oxyhemoglobin Sodium Potassium Chloride Carbon Dioxide BUN Creatinine Glucose POC Glucose 121 H 114 H Lactic Acid Calcium Phosphorus Magnesium Ferritin Lactate Dehydrogenase C-Reactive Protein NT-Pro-B Natriuret Pep Total Protein Albumin Triglycerides Arterial Blood Glucose Ur Specific [place] Coronavirus (PCR) 03/23/21 03/23/21 03/23/21 07:04 08:35 11:19 WBC RBC Hgb Hct MCV MCHC RDW Plt Count Lymph % (Auto) [place] % (Auto) Lymph # (Auto) [place] # (Auto) Seg Neutrophils % Seg Neuts % (Manual) Lymphocytes % (Manual) Monocytes % (Manual) Nucleated RBC % Seg Neutrophils # Seg Neutrophils # Man Lymphocytes # (Manual) Monocytes # (Manual) PT INR D-Dimer ABG pH 7.345 L POC ABG pCO2 POC ABG pO2 ABG pO2 167.9 H ABG HCO3 32.2 H ABG O2 Saturation ABG Base Excess 4.8 H ABG Hemoglobin 13.4 L ABG Oxyhemoglobin ABG Sodium ABG Potassium ABG Glucose Oxyhemoglobin Sodium 148 H Potassium Chloride 111.3 H Carbon Dioxide 31 H BUN 31 H Creatinine Glucose 131 H POC Glucose 165 H Lactic Acid Calcium Phosphorus Magnesium 2.50 H Ferritin Lactate Dehydrogenase C-Reactive Protein NT-Pro-B Natriuret Pep Total Protein Albumin Triglycerides Arterial Blood Glucose Ur Specific [place] Coronavirus (PCR) 03/23/21 03/23/21 03/24/21 16:48 20:52 00:07 WBC RBC Hgb Hct MCV MCHC RDW Plt Count Lymph % (Auto) [place] % (Auto) Lymph # (Auto) [place] # (Auto) Seg Neutrophils % Seg Neuts % (Manual) Lymphocytes % (Manual) Monocytes % (Manual) Nucleated RBC % Seg Neutrophils # Seg Neutrophils # Man Lymphocytes # (Manual) Monocytes # (Manual) PT INR D-Dimer ABG pH POC ABG pCO2 POC ABG pO2 ABG pO2 ABG HCO3 ABG O2 Saturation ABG Base Excess ABG Hemoglobin ABG Oxyhemoglobin ABG Sodium ABG Potassium ABG Glucose Oxyhemoglobin Sodium Potassium Chloride Carbon Dioxide BUN Creatinine Glucose POC Glucose 160 H 127 H 147 H Lactic Acid Calcium Phosphorus Magnesium Ferritin Lactate Dehydrogenase C-Reactive Protein NT-Pro-B Natriuret Pep Total Protein Albumin Triglycerides Arterial Blood Glucose Ur Specific [place] Coronavirus (PCR) 03/24/21 03/24/21 03/24/21 04:34 04:34 05:20 WBC 13.3 H RBC Hgb Hct MCV MCHC 31 L RDW 16.1 H Plt Count Lymph % (Auto) [place] % (Auto) Lymph # (Auto) [place] # (Auto) Seg Neutrophils % Seg Neuts % (Manual) Lymphocytes % (Manual) Monocytes % (Manual) Nucleated RBC % Seg Neutrophils # Seg Neutrophils # Man Lymphocytes # (Manual) Monocytes # (Manual) PT INR D-Dimer ABG pH POC ABG pCO2 POC ABG pO2 ABG pO2 ABG HCO3 ABG O2 Saturation ABG Base Excess ABG Hemoglobin ABG Oxyhemoglobin ABG Sodium ABG Potassium ABG Glucose Oxyhemoglobin Sodium Potassium 5.2 H Chloride Carbon Dioxide BUN 28 H Creatinine 0.7 L Glucose 152 H POC Glucose 141 H Lactic Acid Calcium Phosphorus Magnesium Ferritin Lactate Dehydrogenase C-Reactive Protein NT-Pro-B Natriuret Pep Total Protein Albumin Triglycerides Arterial Blood Glucose Ur Specific [place] Coronavirus (PCR) 03/24/21 03/24/21 03/24/21 09:40 11:38 16:45 WBC RBC Hgb Hct MCV MCHC RDW Plt Count Lymph % (Auto) [place] % (Auto) Lymph # (Auto) [place] # (Auto) Seg Neutrophils % Seg Neuts % (Manual) Lymphocytes % (Manual) Monocytes % (Manual) Nucleated RBC % Seg Neutrophils # Seg Neutrophils # Man Lymphocytes # (Manual) Monocytes # (Manual) PT INR D-Dimer ABG pH POC ABG pCO2 POC ABG pO2 ABG pO2 ABG HCO3 ABG O2 Saturation ABG Base Excess ABG Hemoglobin ABG Oxyhemoglobin ABG Sodium ABG Potassium ABG Glucose Oxyhemoglobin Sodium Potassium Chloride Carbon Dioxide BUN Creatinine Glucose POC Glucose 126 H 136 H 118 H Lactic Acid Calcium Phosphorus Magnesium Ferritin Lactate Dehydrogenase C-Reactive Protein NT-Pro-B Natriuret Pep Total Protein Albumin Triglycerides Arterial Blood Glucose Ur Specific [place] Coronavirus (PCR) 03/24/21 03/24/21 03/25/21 21:03 23:49 04:32 WBC RBC Hgb Hct MCV MCHC RDW 16.1 H Plt Count 121 L Lymph % (Auto) [place] % (Auto) Lymph # (Auto) [place] # (Auto) Seg Neutrophils % Seg Neuts % (Manual) Lymphocytes % (Manual) Monocytes % (Manual) Nucleated RBC % Seg Neutrophils # Seg Neutrophils # Man Lymphocytes # (Manual) Monocytes # (Manual) PT INR D-Dimer ABG pH POC ABG pCO2 POC ABG pO2 ABG pO2 ABG HCO3 ABG O2 Saturation ABG Base Excess ABG Hemoglobin ABG Oxyhemoglobin ABG Sodium ABG Potassium ABG Glucose Oxyhemoglobin Sodium Potassium Chloride Carbon Dioxide BUN Creatinine Glucose POC Glucose 116 H 125 H Lactic Acid Calcium Phosphorus Magnesium Ferritin Lactate Dehydrogenase C-Reactive Protein NT-Pro-B Natriuret Pep Total Protein Albumin Triglycerides Arterial Blood Glucose Ur Specific [place] Coronavirus (PCR) 03/25/21 03/25/21 03/25/21 04:32 05:21 09:29 WBC RBC Hgb Hct MCV MCHC RDW Plt Count Lymph % (Auto) [place] % (Auto) Lymph # (Auto) [place] # (Auto) Seg Neutrophils % Seg Neuts % (Manual) Lymphocytes % (Manual) Monocytes % (Manual) Nucleated RBC % Seg Neutrophils # Seg Neutrophils # Man Lymphocytes # (Manual) Monocytes # (Manual) PT INR D-Dimer ABG pH POC ABG pCO2 POC ABG pO2 ABG pO2 ABG HCO3 ABG O2 Saturation ABG Base Excess ABG Hemoglobin ABG Oxyhemoglobin ABG Sodium ABG Potassium ABG Glucose Oxyhemoglobin Sodium 135 L D Potassium Chloride Carbon Dioxide BUN 25 H Creatinine 0.7 L Glucose 168 H POC Glucose 149 H 115 H Lactic Acid Calcium Phosphorus Magnesium Ferritin Lactate Dehydrogenase C-Reactive Protein NT-Pro-B Natriuret Pep Total Protein Albumin Triglycerides Arterial Blood Glucose Ur Specific [place] Coronavirus (PCR) 03/25/21 03/25/21 03/25/21 12:26 12:35 23:53 WBC RBC Hgb Hct MCV MCHC RDW Plt Count Lymph % (Auto) [place] % (Auto) Lymph # (Auto) [place] # (Auto) Seg Neutrophils % Seg Neuts % (Manual) Lymphocytes % (Manual) Monocytes % (Manual) Nucleated RBC % Seg Neutrophils # Seg Neutrophils # Man Lymphocytes # (Manual) Monocytes # (Manual) PT INR D-Dimer ABG pH POC ABG pCO2 POC ABG pO2 ABG pO2 100.5 H ABG HCO3 33.6 H ABG O2 Saturation ABG Base Excess 6.4 H ABG Hemoglobin 12.0 L ABG Oxyhemoglobin ABG Sodium ABG Potassium ABG Glucose Oxyhemoglobin Sodium Potassium Chloride Carbon Dioxide BUN Creatinine Glucose POC Glucose 108 H 137 H Lactic Acid Calcium Phosphorus Magnesium Ferritin Lactate Dehydrogenase C-Reactive Protein NT-Pro-B Natriuret Pep Total Protein Albumin Triglycerides Arterial Blood Glucose Ur Specific [place] Coronavirus (PCR) 03/26/21 03/26/21 03/26/21 05:14 07:09 07:09 WBC RBC Hgb Hct MCV MCHC RDW 16.5 H Plt Count 139 L Lymph % (Auto) [place] % (Auto) Lymph # (Auto) [place] # (Auto) Seg Neutrophils % Seg Neuts % (Manual) Lymphocytes % (Manual) Monocytes % (Manual) Nucleated RBC % Seg Neutrophils # Seg Neutrophils # Man Lymphocytes # (Manual) Monocytes # (Manual) PT INR D-Dimer ABG pH POC ABG pCO2 POC ABG pO2 ABG pO2 ABG HCO3 ABG O2 Saturation ABG Base Excess ABG Hemoglobin ABG Oxyhemoglobin ABG Sodium ABG Potassium ABG Glucose Oxyhemoglobin Sodium Potassium Chloride Carbon Dioxide BUN 22 H Creatinine 0.7 L Glucose 108 H POC Glucose 116 H Lactic Acid Calcium Phosphorus Magnesium Ferritin Lactate Dehydrogenase C-Reactive Protein NT-Pro-B Natriuret Pep Total Protein Albumin Triglycerides Arterial Blood Glucose Ur Specific [place] Coronavirus (PCR) 03/26/21 03/26/21 03/26/21 09:51 11:15 16:59 WBC RBC Hgb Hct MCV MCHC RDW Plt Count Lymph % (Auto) [place] % (Auto) Lymph # (Auto) [place] # (Auto) Seg Neutrophils % Seg Neuts % (Manual) Lymphocytes % (Manual) Monocytes % (Manual) Nucleated RBC % Seg Neutrophils # Seg Neutrophils # Man Lymphocytes # (Manual) Monocytes # (Manual) PT INR D-Dimer ABG pH POC ABG pCO2 POC ABG pO2 ABG pO2 ABG HCO3 ABG O2 Saturation ABG Base Excess ABG Hemoglobin ABG Oxyhemoglobin ABG Sodium ABG Potassium ABG Glucose Oxyhemoglobin Sodium Potassium Chloride Carbon Dioxide BUN Creatinine Glucose POC Glucose 107 H 119 H 174 H Lactic Acid Calcium Phosphorus Magnesium Ferritin Lactate Dehydrogenase C-Reactive Protein NT-Pro-B Natriuret Pep Total Protein Albumin Triglycerides Arterial Blood Glucose Ur Specific [place] Coronavirus (PCR) 03/26/21 03/27/21 03/27/21 22:18 07:08 10:28 WBC RBC Hgb Hct MCV 95 H MCHC RDW 16.2 H Plt Count 134 L Lymph % (Auto) [place] % (Auto) Lymph # (Auto) [place] # (Auto) Seg Neutrophils % Seg Neuts % (Manual) Lymphocytes % (Manual) Monocytes % (Manual) Nucleated RBC % Seg Neutrophils # Seg Neutrophils # Man Lymphocytes # (Manual) Monocytes # (Manual) PT INR D-Dimer ABG pH POC ABG pCO2 POC ABG pO2 ABG pO2 ABG HCO3 ABG O2 Saturation ABG Base Excess ABG Hemoglobin ABG Oxyhemoglobin ABG Sodium ABG Potassium ABG Glucose Oxyhemoglobin Sodium Potassium Chloride Carbon Dioxide BUN Creatinine Glucose POC Glucose 107 H 52 L Lactic Acid Calcium Phosphorus Magnesium Ferritin Lactate Dehydrogenase C-Reactive Protein NT-Pro-B Natriuret Pep Total Protein Albumin Triglycerides Arterial Blood Glucose Ur Specific [place] Coronavirus (PCR) 03/27/21 03/27/21 03/27/21 10:28 11:45 17:39 WBC RBC Hgb Hct MCV MCHC RDW Plt Count Lymph % (Auto) [place] % (Auto) Lymph # (Auto) [place] # (Auto) Seg Neutrophils % Seg Neuts % (Manual) Lymphocytes % (Manual) Monocytes % (Manual) Nucleated RBC % Seg Neutrophils # Seg Neutrophils # Man Lymphocytes # (Manual) Monocytes # (Manual) PT INR D-Dimer ABG pH POC ABG pCO2 POC ABG pO2 ABG pO2 ABG HCO3 ABG O2 Saturation ABG Base Excess ABG Hemoglobin ABG Oxyhemoglobin ABG Sodium ABG Potassium ABG Glucose Oxyhemoglobin Sodium 136 L Potassium Chloride Carbon Dioxide BUN Creatinine 0.7 L Glucose 150 H POC Glucose 121 H 165 H Lactic Acid Calcium Phosphorus Magnesium Ferritin Lactate Dehydrogenase C-Reactive Protein NT-Pro-B Natriuret Pep Total Protein Albumin Triglycerides Arterial Blood Glucose Ur Specific [place] Coronavirus (PCR) 03/28/21 03/28/21 03/28/21 07:14 11:42 18:22 WBC RBC Hgb Hct MCV MCHC RDW 16.4 H Plt Count Lymph % (Auto) [place] % (Auto) Lymph # (Auto) [place] # (Auto) Seg Neutrophils % Seg Neuts % (Manual) Lymphocytes % (Manual) Monocytes % (Manual) Nucleated RBC % Seg Neutrophils # Seg Neutrophils # Man Lymphocytes # (Manual) Monocytes # (Manual) PT INR D-Dimer ABG pH POC ABG pCO2 POC ABG pO2 ABG pO2 ABG HCO3 ABG O2 Saturation ABG Base Excess ABG Hemoglobin ABG Oxyhemoglobin ABG Sodium ABG Potassium ABG Glucose Oxyhemoglobin Sodium Potassium Chloride Carbon Dioxide BUN Creatinine Glucose POC Glucose 145 H 169 H Lactic Acid Calcium Phosphorus Magnesium Ferritin Lactate Dehydrogenase C-Reactive Protein NT-Pro-B Natriuret Pep Total Protein Albumin Triglycerides Arterial Blood Glucose Ur Specific [place] Coronavirus (PCR) 03/28/21 03/29/21 03/29/21 23:39 04:50 04:50 WBC RBC Hgb 11.0 L Hct 34.9 L MCV MCHC RDW 15.9 H Plt Count Lymph % (Auto) [place] % (Auto) Lymph # (Auto) [place] # (Auto) Seg Neutrophils % Seg Neuts % (Manual) Lymphocytes % (Manual) Monocytes % (Manual) Nucleated RBC % Seg Neutrophils # Seg Neutrophils # Man Lymphocytes # (Manual) Monocytes # (Manual) PT INR D-Dimer ABG pH POC ABG pCO2 POC ABG pO2 ABG pO2 ABG HCO3 ABG O2 Saturation ABG Base Excess ABG Hemoglobin ABG Oxyhemoglobin ABG Sodium ABG Potassium ABG Glucose Oxyhemoglobin Sodium Potassium Chloride Carbon Dioxide 34 H BUN Creatinine 0.6 L Glucose 152 H POC Glucose 139 H Lactic Acid Calcium Phosphorus Magnesium Ferritin Lactate Dehydrogenase C-Reactive Protein NT-Pro-B Natriuret Pep Total Protein Albumin Triglycerides Arterial Blood Glucose Ur Specific [place] Coronavirus (PCR) 03/29/21 03/29/21 03/29/21 05:25 11:34 18:02 WBC RBC Hgb Hct MCV MCHC RDW Plt Count Lymph % (Auto) [place] % (Auto) Lymph # (Auto) [place] # (Auto) Seg Neutrophils % Seg Neuts % (Manual) Lymphocytes % (Manual) Monocytes % (Manual) Nucleated RBC % Seg Neutrophils # Seg Neutrophils # Man Lymphocytes # (Manual) Monocytes # (Manual) PT INR D-Dimer ABG pH POC ABG pCO2 POC ABG pO2 ABG pO2 ABG HCO3 ABG O2 Saturation ABG Base Excess ABG Hemoglobin ABG Oxyhemoglobin ABG Sodium ABG Potassium ABG Glucose Oxyhemoglobin Sodium Potassium Chloride Carbon Dioxide BUN Creatinine Glucose POC Glucose 127 H 169 H 173 H Lactic Acid Calcium Phosphorus Magnesium Ferritin Lactate Dehydrogenase C-Reactive Protein NT-Pro-B Natriuret Pep Total Protein Albumin Triglycerides Arterial Blood Glucose Ur Specific [place] Coronavirus (PCR) 03/29/21 03/30/21 03/30/21 21:42 00:01 05:36 WBC RBC Hgb Hct MCV MCHC RDW 16.7 H Plt Count Lymph % (Auto) [place] % (Auto) Lymph # (Auto) [place] # (Auto) Seg Neutrophils % Seg Neuts % (Manual) Lymphocytes % (Manual) Monocytes % (Manual) Nucleated RBC % Seg Neutrophils # Seg Neutrophils # Man Lymphocytes # (Manual) Monocytes # (Manual) PT INR D-Dimer ABG pH POC ABG pCO2 POC ABG pO2 ABG pO2 ABG HCO3 ABG O2 Saturation ABG Base Excess ABG Hemoglobin ABG Oxyhemoglobin ABG Sodium ABG Potassium ABG Glucose Oxyhemoglobin Sodium Potassium Chloride Carbon Dioxide BUN Creatinine Glucose POC Glucose 184 H 161 H Lactic Acid Calcium Phosphorus Magnesium Ferritin Lactate Dehydrogenase C-Reactive Protein NT-Pro-B Natriuret Pep Total Protein Albumin Triglycerides Arterial Blood Glucose Ur Specific [place] Coronavirus (PCR) 03/30/21 03/30/21 03/30/21 05:36 06:03 11:32 WBC RBC Hgb Hct MCV MCHC RDW Plt Count Lymph % (Auto) [place] % (Auto) Lymph # (Auto) [place] # (Auto) Seg Neutrophils % Seg Neuts % (Manual) Lymphocytes % (Manual) Monocytes % (Manual) Nucleated RBC % Seg Neutrophils # Seg Neutrophils # Man Lymphocytes # (Manual) Monocytes # (Manual) PT INR D-Dimer ABG pH POC ABG pCO2 POC ABG pO2 ABG pO2 ABG HCO3 ABG O2 Saturation ABG Base Excess ABG Hemoglobin ABG Oxyhemoglobin ABG Sodium ABG Potassium ABG Glucose Oxyhemoglobin Sodium Potassium Chloride Carbon Dioxide BUN Creatinine 0.5 L Glucose 127 H POC Glucose 130 H 183 H Lactic Acid Calcium Phosphorus Magnesium Ferritin Lactate Dehydrogenase C-Reactive Protein NT-Pro-B Natriuret Pep Total Protein Albumin Triglycerides Arterial Blood Glucose Ur Specific [place] Coronavirus (PCR) 03/30/21 03/30/21 03/30/21 15:00 16:23 21:07 WBC RBC Hgb Hct MCV MCHC RDW Plt Count Lymph % (Auto) [place] % (Auto) Lymph # (Auto) [place] # (Auto) Seg Neutrophils % Seg Neuts % (Manual) Lymphocytes % (Manual) Monocytes % (Manual) Nucleated RBC % Seg Neutrophils # Seg Neutrophils # Man Lymphocytes # (Manual) Monocytes # (Manual) PT INR D-Dimer ABG pH POC ABG pCO2 POC ABG pO2 ABG pO2 67.2 L ABG HCO3 34.9 H ABG O2 Saturation ABG Base Excess 9.1 H ABG Hemoglobin 11.6 L ABG Oxyhemoglobin ABG Sodium ABG Potassium ABG Glucose Oxyhemoglobin 93.0 L Sodium Potassium Chloride Carbon Dioxide BUN Creatinine Glucose POC Glucose 162 H 146 H Lactic Acid Calcium Phosphorus Magnesium Ferritin Lactate Dehydrogenase C-Reactive Protein NT-Pro-B Natriuret Pep Total Protein Albumin Triglycerides Arterial Blood Glucose Ur Specific [place] Coronavirus (PCR) 03/30/21 03/31/21 03/31/21 23:23 05:44 11:19 WBC RBC Hgb Hct MCV MCHC RDW Plt Count Lymph % (Auto) [place] % (Auto) Lymph # (Auto) [place] # (Auto) Seg Neutrophils % Seg Neuts % (Manual) Lymphocytes % (Manual) Monocytes % (Manual) Nucleated RBC % Seg Neutrophils # Seg Neutrophils # Man Lymphocytes # (Manual) Monocytes # (Manual) PT INR D-Dimer ABG pH POC ABG pCO2 POC ABG pO2 ABG pO2 ABG HCO3 ABG O2 Saturation ABG Base Excess ABG Hemoglobin ABG Oxyhemoglobin ABG Sodium ABG Potassium ABG Glucose Oxyhemoglobin Sodium Potassium Chloride Carbon Dioxide BUN Creatinine Glucose POC Glucose 138 H 180 H 178 H Lactic Acid Calcium Phosphorus Magnesium Ferritin Lactate Dehydrogenase C-Reactive Protein NT-Pro-B Natriuret Pep Total Protein Albumin Triglycerides Arterial Blood Glucose Ur Specific [place] Coronavirus (PCR) 03/31/21 03/31/21 03/31/21 12:50 13:30 16:06 WBC RBC Hgb 11.3 L Hct 35.1 L MCV MCHC RDW 16.5 H Plt Count Lymph % (Auto) 7.6 L [place] % (Auto) 9.5 H Lymph # (Auto) 0.6 L [place] # (Auto) Seg Neutrophils % 78.3 H Seg Neuts % (Manual) Lymphocytes % (Manual) Monocytes % (Manual) Nucleated RBC % Seg Neutrophils # Seg Neutrophils # Man Lymphocytes # (Manual) Monocytes # (Manual) PT INR D-Dimer ABG pH POC ABG pCO2 POC ABG pO2 ABG pO2 99.4 H ABG HCO3 34.9 H ABG O2 Saturation ABG Base Excess 8.4 H ABG Hemoglobin 11.8 L ABG Oxyhemoglobin ABG Sodium ABG Potassium ABG Glucose Oxyhemoglobin Sodium Potassium Chloride Carbon Dioxide BUN Creatinine Glucose POC Glucose 197 H Lactic Acid Calcium Phosphorus Magnesium Ferritin Lactate Dehydrogenase C-Reactive Protein NT-Pro-B Natriuret Pep Total Protein Albumin Triglycerides Arterial Blood Glucose Ur Specific [place] Coronavirus (PCR) 03/31/21 04/01/21 04/01/21 20:51 05:37 07:16 WBC RBC 3.39 L Hgb 10.5 L Hct 31.6 L MCV MCHC RDW 16.1 H Plt Count Lymph % (Auto) [place] % (Auto) Lymph # (Auto) [place] # (Auto) Seg Neutrophils % Seg Neuts % (Manual) Lymphocytes % (Manual) Monocytes % (Manual) Nucleated RBC % Seg Neutrophils # Seg Neutrophils # Man Lymphocytes # (Manual) Monocytes # (Manual) PT INR D-Dimer ABG pH POC ABG pCO2 POC ABG pO2 ABG pO2 ABG HCO3 ABG O2 Saturation ABG Base Excess ABG Hemoglobin ABG Oxyhemoglobin ABG Sodium ABG Potassium ABG Glucose Oxyhemoglobin Sodium Potassium Chloride Carbon Dioxide BUN Creatinine Glucose POC Glucose 140 H 128 H Lactic Acid Calcium Phosphorus Magnesium Ferritin Lactate Dehydrogenase C-Reactive Protein NT-Pro-B Natriuret Pep Total Protein Albumin Triglycerides Arterial Blood Glucose Ur Specific [place] Coronavirus (PCR) 04/01/21 04/01/21 04/01/21 07:16 11:52 16:56 WBC RBC Hgb Hct MCV MCHC RDW Plt Count Lymph % (Auto) [place] % (Auto) Lymph # (Auto) [place] # (Auto) Seg Neutrophils % Seg Neuts % (Manual) Lymphocytes % (Manual) Monocytes % (Manual) Nucleated RBC % Seg Neutrophils # Seg Neutrophils # Man Lymphocytes # (Manual) Monocytes # (Manual) PT INR D-Dimer ABG pH POC ABG pCO2 POC ABG pO2 ABG pO2 ABG HCO3 ABG O2 Saturation ABG Base Excess ABG Hemoglobin ABG Oxyhemoglobin ABG Sodium ABG Potassium ABG Glucose Oxyhemoglobin Sodium Potassium Chloride Carbon Dioxide BUN Creatinine 0.6 L Glucose 131 H POC Glucose 182 H 179 H Lactic Acid Calcium 8.3 L Phosphorus Magnesium Ferritin Lactate Dehydrogenase C-Reactive Protein NT-Pro-B Natriuret Pep Total Protein Albumin Triglycerides Arterial Blood Glucose Ur Specific [place] Coronavirus (PCR) 04/01/21 04/01/21 04/02/21 21:30 23:40 04:26 WBC RBC 3.62 L Hgb 10.8 L Hct 33.9 L MCV MCHC RDW 16.0 H Plt Count Lymph % (Auto) [place] % (Auto) Lymph # (Auto) [place] # (Auto) Seg Neutrophils % Seg Neuts % (Manual) Lymphocytes % (Manual) Monocytes % (Manual) Nucleated RBC % Seg Neutrophils # Seg Neutrophils # Man Lymphocytes # (Manual) Monocytes # (Manual) PT INR D-Dimer ABG pH POC ABG pCO2 POC ABG pO2 ABG pO2 ABG HCO3 ABG O2 Saturation ABG Base Excess ABG Hemoglobin ABG Oxyhemoglobin ABG Sodium ABG Potassium ABG Glucose Oxyhemoglobin Sodium Potassium Chloride Carbon Dioxide BUN Creatinine Glucose POC Glucose 131 H 129 H Lactic Acid Calcium Phosphorus Magnesium Ferritin Lactate Dehydrogenase C-Reactive Protein NT-Pro-B Natriuret Pep Total Protein Albumin Triglycerides Arterial Blood Glucose Ur Specific [place] Coronavirus (PCR) 04/02/21 04/02/21 04/02/21 04:26 05:54 11:35 WBC RBC Hgb Hct MCV MCHC RDW Plt Count Lymph % (Auto) [place] % (Auto) Lymph # (Auto) [place] # (Auto) Seg Neutrophils % Seg Neuts % (Manual) Lymphocytes % (Manual) Monocytes % (Manual) Nucleated RBC % Seg Neutrophils # Seg Neutrophils # Man Lymphocytes # (Manual) Monocytes # (Manual) PT INR D-Dimer ABG pH POC ABG pCO2 POC ABG pO2 ABG pO2 ABG HCO3 ABG O2 Saturation ABG Base Excess ABG Hemoglobin ABG Oxyhemoglobin ABG Sodium ABG Potassium ABG Glucose Oxyhemoglobin Sodium 136 L Potassium Chloride Carbon Dioxide BUN Creatinine 0.6 L Glucose 152 H POC Glucose 151 H 178 H Lactic Acid Calcium Phosphorus Magnesium Ferritin Lactate Dehydrogenase C-Reactive Protein NT-Pro-B Natriuret Pep Total Protein Albumin Triglycerides Arterial Blood Glucose Ur Specific [place] Coronavirus (PCR) 04/02/21 04/02/21 04/02/21 16:11 21:09 23:38 WBC RBC Hgb Hct MCV MCHC RDW Plt Count Lymph % (Auto) [place] % (Auto) Lymph # (Auto) [place] # (Auto) Seg Neutrophils % Seg Neuts % (Manual) Lymphocytes % (Manual) Monocytes % (Manual) Nucleated RBC % Seg Neutrophils # Seg Neutrophils # Man Lymphocytes # (Manual) Monocytes # (Manual) PT INR D-Dimer ABG pH POC ABG pCO2 POC ABG pO2 ABG pO2 ABG HCO3 ABG O2 Saturation ABG Base Excess ABG Hemoglobin ABG Oxyhemoglobin ABG Sodium ABG Potassium ABG Glucose Oxyhemoglobin Sodium Potassium Chloride Carbon Dioxide BUN Creatinine Glucose POC Glucose 186 H 145 H 152 H Lactic Acid Calcium Phosphorus Magnesium Ferritin Lactate Dehydrogenase C-Reactive Protein NT-Pro-B Natriuret Pep Total Protein Albumin Triglycerides Arterial Blood Glucose Ur Specific [place] Coronavirus (PCR) 04/03/21 04/03/21 04/03/21 04:14 04:14 05:27 WBC RBC 3.62 L Hgb 11.0 L Hct 34.0 L MCV MCHC RDW 16.3 H Plt Count Lymph % (Auto) [place] % (Auto) Lymph # (Auto) [place] # (Auto) Seg Neutrophils % Seg Neuts % (Manual) Lymphocytes % (Manual) Monocytes % (Manual) Nucleated RBC % Seg Neutrophils # Seg Neutrophils # Man Lymphocytes # (Manual) Monocytes # (Manual) PT INR D-Dimer ABG pH POC ABG pCO2 POC ABG pO2 ABG pO2 ABG HCO3 ABG O2 Saturation ABG Base Excess ABG Hemoglobin ABG Oxyhemoglobin ABG Sodium ABG Potassium ABG Glucose Oxyhemoglobin Sodium Potassium Chloride Carbon Dioxide 31 H BUN Creatinine 0.6 L Glucose 155 H POC Glucose 165 H Lactic Acid Calcium Phosphorus Magnesium Ferritin Lactate Dehydrogenase C-Reactive Protein NT-Pro-B Natriuret Pep Total Protein Albumin Triglycerides Arterial Blood Glucose Ur Specific [place] Coronavirus (PCR) 04/03/21 11:02 WBC RBC Hgb Hct MCV MCHC RDW Plt Count Lymph % (Auto) [place] % (Auto) Lymph # (Auto) [place] # (Auto) Seg Neutrophils % Seg Neuts % (Manual) Lymphocytes % (Manual) Monocytes % (Manual) Nucleated RBC % Seg Neutrophils # Seg Neutrophils # Man Lymphocytes # (Manual) Monocytes # (Manual) PT INR D-Dimer ABG pH POC ABG pCO2 POC ABG pO2 ABG pO2 ABG HCO3 ABG O2 Saturation ABG Base Excess ABG Hemoglobin ABG Oxyhemoglobin ABG Sodium ABG Potassium ABG Glucose Oxyhemoglobin Sodium Potassium Chloride Carbon Dioxide BUN Creatinine Glucose POC Glucose 161 H Lactic Acid Calcium Phosphorus Magnesium Ferritin Lactate Dehydrogenase C-Reactive Protein NT-Pro-B Natriuret Pep Total Protein Albumin Triglycerides Arterial Blood Glucose Ur Specific [place] Coronavirus (PCR) Chest x-ray: pending Allied health notes reviewed: nursing
--- NOTE | 2021-04-03 12:52 | Progress Note ---
Assessment and Plan Cultures: SARS CoV2 PCR: positive 03/08/2021 blood culture: no growth 03/10/2021 sputum culture: Usual respiratory marlyn 03/16/2021 blood culture: In process 03/18/2021 sputum culture: Stenotrophomonas 03/31/2021 Blood culture: no growth 03/31/2021 tracheal aspirate: usual resp marlyn A/P: 61-year-old male with diabetes, hypertension admitted to the hospital with complaints of shortness of breath and feeling weak for the last 1 week: #Sepsis secondary to bilateral pneumonia: secondary to COVID-19. Completed rem desivir, s/p Actemra, steroids. Completed abx for bacterial pneumonia, Stenotrophomonas. #Acute hypoxic respiratory failure: s/p trach and PEG. #DM #HTN Recs: -Procalcitonin 0.17, CXR with b/l airspace opacities unchanged, trach +, cultures also with no growth, will d/c Cefepime Sangita Nicole MD, FACP, [facility] O: [phone] F: [phone] Subjective Date of service: 04/03/21 Principal diagnosis: COVID-19 infection; DM II; Bilateral pneumonia; Obesity; HTN Interval history: Afebrile, low grade temp with Tmax 100.3F. Remains on the vent via trach. Procalcitonin 0.17, CXR with b/l airspace opacities unchanged, trach + Objective - Exam Narrative Exam: Physical Exam Constitutional: sedated, on the vent Head, Ears, Nose: Normocephalic, atraumatic. External ears, nose normal Eyes: Conjunctivae/corneas clear. No icterus. No ptosis. Neck: trach + Cardiovascular: S1, S2 + Respiratory: AE fair GI: Soft, bowel sounds +, PEG + Musculoskeletal: No pedal edema, no cyanosis. Skin: No rash or abscess Hem/Lymphatic: No palpable cervical or supraclavicular nodes. No lymphangitis Psych: no agitation Neurological: sedated, on the vent, exam limited - Constitutional Vitals: Vital Signs Temp Pulse Resp BP Pulse Ox 98.5 F 105 H 22 122/70 94 04/03/21 11:39 04/03/21 12:06 04/03/21 09:00 04/03/21 12:06 04/03/21 12:06 Temperature -Last 24 Hours Temperature 98.5 F Temperature 99.3 F Temperature 99.3 F Temperature 100.3 F Temperature 99.6 F Temperature 100.2 F Temperature 98.1 F Temperature 98.2 F - Labs CBC & Chem 7: 04/03/21 04:14 04/03/21 04:14 Labs: Abnormal lab results 04/02/21 04/02/21 04/02/21 Range/Units 16:11 21:09 23:38 RBC (3.65-5.03) M/mm3 Hgb (11.8-15.2) gm/dl Hct (35.5-45.6) % RDW (13.2-15.2) % Carbon Dioxide (22-30) mmol/L Creatinine (0.8-1.3) mg/dL Glucose (75-100) mg/dL POC Glucose 186 H 145 H 152 H (70-105) mg/dL 04/03/21 04/03/21 04/03/21 Range/Units 04:14 04:14 05:27 RBC 3.62 L (3.65-5.03) M/mm3 Hgb 11.0 L (11.8-15.2) gm/dl Hct 34.0 L (35.5-45.6) % RDW 16.3 H (13.2-15.2) % Carbon Dioxide 31 H (22-30) mmol/L Creatinine 0.6 L (0.8-1.3) mg/dL Glucose 155 H (75-100) mg/dL POC Glucose 165 H (70-105) mg/dL 04/03/21 Range/Units 11:02 RBC (3.65-5.03) M/mm3 Hgb (11.8-15.2) gm/dl Hct (35.5-45.6) % RDW (13.2-15.2) % Carbon Dioxide (22-30) mmol/L Creatinine (0.8-1.3) mg/dL Glucose (75-100) mg/dL POC Glucose 161 H (70-105) mg/dL
--- NOTE | 2021-04-03 18:05 | Progress Note ---
<FLORIANMARISABEL ChambersLester - Last Filed: 04/03/21 18:17> Assessment and Plan Assessment and plan: This is a 61-year-old man with HTN and DM admitted with COVID-19 pneumonia, acute hypoxic respiratory failure, sepsis Neuro: Acute encephalopathy -Sedated with fentanyl drip -RASS goal 0 to -1 -Avoid delirium -On Seroquel and Librium -Reorientation as needed -Maintain sleep-wake cycle -As needed analgesia -CT head shows no acute intracranial abnormality -Neurology consulted, appreciate recommendations Cardiac: h/o Hypertension -Cardiology consulted, appreciate recommendations -Blood pressure monitoring per protocol -Vasopressor support with -- -MAP goal greater than 65 -Echocardiogram shows a mildly dilated ascending aorta, normal LV systolic function, mild concentric LVH, LVEF 60 to 65% -Antihypertensive regimen: Hydralazine, metoprolol, amlodipine Respiratory: Acute hypoxic respiratory failure -CCM consulted, appreciate recommendations -Intubated on 03/10 with 7.50 ETT at 24 at the lips, s/p trach on 03/29 -A.m. vent settings: Assist-control rate 12, tidal volume 450, PEEP 8, FiO2 45% -See RT notes for titration -Placed on CPAP trial 10/04 -A.m. ABG noted -Albuterol as needed, Brovana Pulmicort -VAP bundle -SPO2 monitoring GI: Obesity, external hemorrhoids -24 hours +90 mL -PPI -NTR consulted for tube feedings -BR: Senokot -BM 03/30 -As needed Preparation H : Urinary retention -Nephrology consulted, appreciate recommendations -Strict intake and output -Renally dose medications -Avoid nephrotoxic medications -Doxazosin ID: Severe sepsis (POA), COVID-19 pneumonia, stenotrophomonas maltophilia and tracheal aspirate -Infectious disease consulted, appreciate recommendations -Antibiotic therapy with cefepime -Due to low procalcitonin and cultures remaining negative cefepime was discontinued today -S/p remdesivir for 5 days -S/p Actemra 03/10/2021 -f/u blood culture -Monitor WBC and temperature curve Heme: Superficial thrombus in left gastrocnemius vein -Bilateral lower extremity ultrasound negative for DVT, superficial thrombus in left gastrocnemius vein -repeat BLE Doppler US show superficial thrombus -CTA chest shows no gross pulm embolism -Trend CBC -SCDs to BLE while in bed -Transfuse hemoglobin less than 7 -Lovenox prophylactic dosing -Monitor for signs of bleeding Endo: h/o DM -Avoid hypoglycemia -SSI -Accu-Cheks q. 6 -Long-acting insulin, titrate as needed The high probability of a clinically significant, sudden or life threatening deterioration of the [multi] system(s) required my full and direct attention, intervention and personal management. The aggregate critical care time was [60] minutes. This time is in addition to time spent performing reported procedures but includes the following: [x] Data Review and interpretation [x] Patient assessment and monitoring of vital signs [x] Documentation [x] Medication orders and management Disposition Plan: icu Total Time Spent with Patient (Minutes): 60 History Interval history: This is a 61-year-old male with HTN and DM who presented to the emergency department on 03/09 with shortness of breath and hypoxia via EMS. Patient had apparently been feeling ill for proxy 1 week prior to mentation. Upon EMS arrival patient SPO2 was in the low 70s and improved to upper 80slow 90s on nonrebreather and he was transported to [facility] in the emergency department patient was noted to be hypoxic and placed on a BiPAP with improvement to mentation and hypoxia. CXR showed bilateral patchy infiltrates. Lab work showed leukocytosis, elevated D-dimer, hyponatremia, hypochloremia and elevated COVID-19 markers with elevated BNP. CTA chest showed no pulmonary embolism. Patient was admitted to the hospitalist service as a COVID-19 PUI and started on antibiotics and Decadron with consult to infectious disease. 03/09: The patient was seen and evaluated today, and he was found to be hemodynamically stable. The patient is currently on BiPAP for possible COVID-19 pneumonia. He was started on Lovenox 1mg/kg for DVT ppx in the setting of d- dimer > 10,000. Infectious Disease was consulted. The patient is pending a TTE. 03/10: No acute events overnight, patient was intubated in the afternoon transferred to ICU 03/11: Patient started on Lantus, free water flushes increased, propofol drip resumed and oral antihypertensive added. 03/12: lantus increased, k at 5, will monitor. I updated his family and his stated that he is not vaccinated. He does have HTN and she will call the RN to update home medications. She did say he takes bystolic and amlopine. She inquired about ventilator and lab work. She had no further questions. 03/13: KVNG overnight. Patient remains hyperglycemic, basal insulin adjusted and increased to Q12hrs. Patient is overall net positive since admit X1 dose of IV lasix, repeat BMP this afternoon. 03/14: Failed SAT this am due to increase agitation, tachycardia and hypertension. Remains on propofol and fentanyl gtt. Hyperkalemia treated with PO kayaxalate. Patient responded to IV lasix yesterday additional dose again today for a net negative balance. Repeat BMP this afternoon. Insulin adjusted for hyperglycemia. 03/15: Remains encephalopathic, not following commansd. Orders placed for CT head/Brain and Neuro consulted. Rectal bleeding subsided, most likely due to hemorrhoids. H&H is stable will continue to monitor. Kayaxexalate for high K, repeat labs 4 to 6hrs post treatment. 03/16: Still agiated this am, CT head with no acute Abn. CXR and ABG noted- evolving pna and worsening hypoxia, now with low grade fevers. Sputum culture ordered, IV Abx added, ID on cosult. 03/17: This am ABG noted, hypoxia improved. Continue to wean FiO2 as tolerated. Still with low grade fevers, on IV Abx per ID. Still with periods of confusion despite sedation, seroquel increased. F/u CXR in the am 03/18: still very agitated especially when off sedation, with hypertension and tachycardia. Continue sedation for RASS -2, PRN antihypertensive for SPB greater than 160. This febrile this am, continue current IV abx per ID 03/19: Patient afebrile overnight, continue IV Abx per ID. ABG also improved this am, continue to wean FIO2 as tolerated. PRN antihypertensive for hypertension. 03/20: Hyperkalemia treated with Kayexalate, Good discontinued, vancomycin and cefepime stopped started Bactrim by ID. Steroid taper started. 03/21: BB started for hypertension, Seroquel increased for agitation and Librium started no acute events reported overnight. [facility] made vent changes 03/22: Adjustment to anxiolytics, respiratory rate on ventilator per [facility]. Patient noted to have bleeding hemorrhoids with clot, requested RN to remove bowel management system and will order Preparation H. 03/23: Given no confirmed DVT or PE (only superficial thrombus noted on Dopplers) therapeutic Lovenox changed to prophylactic Lovenox. Started on doxazosin to help with retention. Consulted surgery for tracheostomy and propofol discontinued. 03/24: Surgery consult completed, patient changed to prophylaxis anticoagulation, started on doxazosin yesterday with plans to remove Good catheter in 48 hours. Patient with slight hypokalemia today and given Kayexalate. No acute events reported overnight. 03/25: No acute events reported overnight. Patient remains on fentanyl drip and on CPAP trial this morning. 03/26: no acute events reported overnight. placed on CPAP this AM, remains on fent/librium. scheduled for trach/peg this week. 03/27: Hypoglycemic this am, will decreased lantus to Qhs. Plan for possible Trach and Peg by Gen Surg this am. Case management to arrange possible LTAC placement 03/28: KVNG overnight. Tolerating PST this am. Plan for trach and PEG tomorrow by Gen. Surgery, NPO after midnight. 03/29: No significant changes overnight. Plan for trach and Peg today. Case management to arrange possible LTAC placement 03/30. S/p Trach and PEG, no complications noted. High residual yesterday despite NPO status, reglan added X2 days. Per RN no residual this am, patient is tolerating TF. Continue to advance TF as tolerated. Norvasc added for hyper tension. Pitting edema also appreciated, some diuretic might be beneficial, will d/w CCM. Continue daily PST as tolerated. 03/31: Patient remains on the vent still on fentanyl gtt with periods of agita tion. PRN analgesia added, plan to start weaning off fentanyl gtt. Febrile this am, completed IV abx course. Will panculture for now, ID is also following. 04/01: Still febrile overnight, cultures result pending, continue IV ABx per ID. Failed PST this am. Continue daily PST and vent wean per CCM. Case management to arrange possible placement. 04/02: KVNG overnight. Fevers improved overnight, continue to follow cultures data, IV ABx per ID. Continue daily PST and wean vent as per CCM. 04/03: Given low procalcitonin, unchanged CXR and cultures with no growth cefepime was discontinued by ID. LTAC evaluation ongoing. No acute events reported overnight. Hospitalist Physical - Constitutional Vitals: Temp Pulse Resp BP Pulse Ox 99.1 F 107 H 24 120/71 95 04/03/21 16:42 04/03/21 17:45 04/03/21 17:45 04/03/21 17:45 04/03/21 17:45 General appearance: Present: no acute distress, well-nourished, obese, other (On the vent, on sedation) Results - Labs CBC & Chem 7: 04/03/21 04:14 04/03/21 04:14 Labs: Laboratory Last Values WBC 8.8 K/mm3 (4.5-11.0) 04/03/21 04:14 RBC 3.62 M/mm3 (3.65-5.03) L 04/03/21 04:14 Hgb 11.0 gm/dl (11.8-15.2) L 04/03/21 04:14 Hct 34.0 % (35.5-45.6) L 04/03/21 04:14 MCV 94 fl (84-94) 04/03/21 04:14 MCH 30 pg (28-32) 04/03/21 04:14 MCHC 32 % (32-34) 04/03/21 04:14 RDW 16.3 % (13.2-15.2) H 04/03/21 04:14 Plt Count 280 K/mm3 (140-440) 04/03/21 04:14 Lymph % (Auto) 7.6 % (13.4-35.0) L 03/31/21 13:30 Cloud % (Auto) 9.5 % (0.0-7.3) H 03/31/21 13:30 Eos % (Auto) 4.1 % (0.0-4.3) 03/31/21 13:30 Baso % (Auto) 0.5 % (0.0-1.8) 03/31/21 13:30 Lymph # (Auto) 0.6 K/mm3 (1.2-5.4) L 03/31/21 13:30 Cloud # (Auto) 0.7 K/mm3 (0.0-0.8) 03/31/21 13:30 Eos # (Auto) 0.3 K/mm3 (0.0-0.4) 03/31/21 13:30 Baso # (Auto) 0.0 K/mm3 (0.0-0.1) 03/31/21 13:30 Add Manual Diff Complete 03/10/21 04:29 Total Counted 100 03/10/21 04:29 Seg Neutrophils % 78.3 % (40.0-70.0) H 03/31/21 13:30 Seg Neuts % (Manual) 94.0 % (40.0-70.0) H 03/10/21 04:29 Band Neutrophils % 0 % 03/10/21 04:29 Lymphocytes % (Manual) 1.0 % (13.4-35.0) L 03/10/21 04:29 Reactive Lymphs % (Man) 0 % 03/10/21 04:29 Monocytes % (Manual) 5.0 % (0.0-7.3) 03/10/21 04:29 Eosinophils % (Manual) 0 % (0.0-4.3) 03/10/21 04:29 Basophils % (Manual) 0 % (0.0-1.8) 03/10/21 04:29 Metamyelocytes % 0 % 03/10/21 04:29 Myelocytes % 0 % 03/10/21 04:29 Promyelocytes % 0 % 03/10/21 04:29 Blast Cells % 0 % 03/10/21 04:29 Nucleated RBC % 3.0 % (0.0-0.9) H 03/10/21 04:29 Seg Neutrophils # 5.8 K/mm3 (1.8-7.7) 03/31/21 13:30 Seg Neutrophils # Man 19.4 K/mm3 (1.8-7.7) H 03/10/21 04:29 Band Neutrophils # 0.0 K/mm3 03/10/21 04:29 Lymphocytes # (Manual) 0.2 K/mm3 (1.2-5.4) L 03/10/21 04:29 Abs React Lymphs (Man) 0.0 K/mm3 03/10/21 04:29 Monocytes # (Manual) 1.0 K/mm3 (0.0-0.8) H 03/10/21 04:29 Eosinophils # (Manual) 0.0 K/mm3 (0.0-0.4) 03/10/21 04:29 Basophils # (Manual) 0.0 K/mm3 (0.0-0.1) 03/10/21 04:29 Metamyelocytes # 0.0 K/mm3 03/10/21 04:29 Myelocytes # 0.0 K/mm3 03/10/21 04:29 Promyelocytes # 0.0 K/mm3 03/10/21 04:29 Blast Cells # 0.0 K/mm3 03/10/21 04:29 WBC Morphology Not Reportable 03/10/21 04:29 Hypersegmented Neuts Not Reportable 03/10/21 04:29 Hyposegmented Neuts Not Reportable 03/10/21 04:29 Hypogranular Neuts Not Reportable 03/10/21 04:29 Smudge Cells Not Reportable 03/10/21 04:29 Toxic Granulation Not Reportable 03/10/21 04:29 Toxic Vacuolation Not Reportable 03/10/21 04:29 Dohle Bodies Not Reportable 03/10/21 04:29 Pelger-Huet Anomaly Not Reportable 03/10/21 04:29 Mely Rods Not Reportable 03/10/21 04:29 Platelet Estimate Consistent w auto 03/10/21 04:29 Clumped Platelets Not Reportable 03/10/21 04:29 Plt Clumps, EDTA Not Reportable 03/10/21 04:29 Large Platelets Not Reportable 03/10/21 04:29 Giant Platelets Not Reportable 03/10/21 04:29 Platelet Satelliting Not Reportable 03/10/21 04:29 Plt Morphology Comment Not Reportable 03/10/21 04:29 RBC Morphology Normal 03/10/21 04:29 Dimorphic RBCs Not Reportable 03/10/21 04:29 Polychromasia Not Reportable 03/10/21 04:29 Hypochromasia Not Reportable 03/10/21 04:29 Poikilocytosis Not Reportable 03/10/21 04:29 Anisocytosis Not Reportable 03/10/21 04:29 Microcytosis Not Reportable 03/10/21 04:29 Macrocytosis Not Reportable 03/10/21 04:29 Spherocytes Not Reportable 03/10/21 04:29 Pappenheimer Bodies Not Reportable 03/10/21 04:29 Sickle Cells Not Reportable 03/10/21 04:29 Target Cells Not Reportable 03/10/21 04:29 Tear Drop Cells Not Reportable 03/10/21 04:29 Ovalocytes Not Reportable 03/10/21 04:29 Helmet Cells Not Reportable 03/10/21 04:29 Longo-[place]burn Bodies Not Reportable 03/10/21 04:29 [place] Rings Not Reportable 03/10/21 04:29 Shama Cells Not Reportable 03/10/21 04:29 Bite Cells Not Reportable 03/10/21 04:29 Crenated Cell Not Reportable 03/10/21 04:29 Elliptocytes Not Reportable 03/10/21 04:29 Acanthocytes (Spur) Not Reportable 03/10/21 04:29 Rouleaux Not Reportable 03/10/21 04:29 Hemoglobin C Crystals Not Reportable 03/10/21 04:29 Schistocytes Not Reportable 03/10/21 04:29 Malaria parasites Not Reportable 03/10/21 04:29 Shaheen Bodies Not Reportable 03/10/21 04:29 Hem Pathologist Commnt No 03/10/21 04:29 PT 13.0 Sec. (12.2-14.9) 03/29/21 04:50 INR 0.88 (0.87-1.13) 03/29/21 04:50 APTT 28.0 Sec. (24.2-36.6) 03/08/21 20:24 D-Dimer 1359.12 ng/mlDDU (0-234) H 03/17/21 04:40 ABG pH 7.397 pH Units (7.350-7.450) 03/31/21 12:50 POC ABG pCO2 71.9 mmHg (32.0-48.0) H 03/12/21 21:54 ABG pCO2 58.1 mm Hg 03/31/21 12:50 POC ABG pO2 53.6 mmHg (83-108) L 03/12/21 21:54 ABG pO2 99.4 mm Hg (80.0-90.0) H 03/31/21 12:50 POC ABG HCO3 30.0 03/12/21 21:54 ABG HCO3 34.9 mmol/L (20.0-26.0) H 03/31/21 12:50 ABG O2 Saturation 97.3 % (95.0-99.0) 03/31/21 12:50 ABG O2 Content 15.9 (0.0-44) 03/31/21 12:50 POC ABG Base Excess 0.5 03/12/21 21:54 ABG Base Excess 8.4 mmol/L (-2.0-3.0) H 03/31/21 12:50 ABG Hemoglobin 11.8 gm/dl (14.0-18.0) L 03/31/21 12:50 ABG Oxyhemoglobin 84.8 (94-98) L 03/12/21 21:54 ABG Carboxyhemoglobin 1.6 % (0.0-5.0) 03/31/21 12:50 ABG Methemoglobin 0.7 % (0.0-1.5) 03/31/21 12:50 ABG Sodium 134.2 mmol/L (136.0-145.0) L 03/12/21 21:54 ABG Potassium 4.9 mmol/L (3.40-4.50) H 03/12/21 21:54 ABG Chloride 99.0 mmol/L (98-107) 03/12/21 21:54 ABG Glucose 306 mg/dL (65-95) H 03/12/21 21:54 Oxyhemoglobin 95.1 % (95.0-99.0) 03/31/21 12:50 Carboxyhemoglobin 0.6 (0.5-1.5) 03/12/21 21:54 FiO2 40 % 03/31/21 12:50 FiO2 % 50.0 03/12/21 21:54 Sodium 139 mmol/L (137-145) 04/03/21 04:14 Potassium 4.6 mmol/L (3.6-5.0) 04/03/21 04:14 Chloride 99.4 mmol/L (98-107) 04/03/21 04:14 Carbon Dioxide 31 mmol/L (22-30) H 04/03/21 04:14 Anion Gap 13 mmol/L 04/03/21 04:14 BUN 16 mg/dL (9-20) 04/03/21 04:14 Creatinine 0.6 mg/dL (0.8-1.3) L 04/03/21 04:14 Estimated GFR > 60 ml/min 04/03/21 04:14 BUN/Creatinine Ratio 27 % 04/03/21 04:14 Glucose 155 mg/dL (75-100) H 04/03/21 04:14 POC Glucose 180 mg/dL (70-105) H 04/03/21 16:19 Lactic Acid 1.90 mmol/L (0.7-2.0) 03/08/21 23:51 Calcium 8.6 mg/dL (8.4-10.2) 04/03/21 04:14 Phosphorus 3.40 mg/dL (2.5-4.5) 04/02/21 04:26 Magnesium 2.10 mg/dL (1.7-2.3) 04/02/21 04:26 Ferritin 976.4 ng/mL (30.0-300.0) H 03/15/21 04:00 Total Bilirubin 0.20 mg/dL (0.1-1.2) 03/12/21 08:03 AST 10 units/L (5-40) 03/12/21 08:03 ALT 16 units/L (7-56) 03/12/21 08:03 Alkaline Phosphatase 77 units/L (35-129) 03/12/21 08:03 Lactate Dehydrogenase 630 units/L (91-180) H 03/15/21 06:06 C-Reactive Protein 0.40 mg/dL (0.00-1.30) 03/17/21 04:40 NT-Pro-B Natriuret Pep 1053 pg/mL (0-900) H 03/08/21 20:24 Total Protein 6.0 g/dL (6.3-8.2) L 03/12/21 08:03 Albumin 2.9 g/dL (3.9-5) L 03/12/21 08:03 Albumin/Globulin Ratio 0.9 % 03/12/21 08:03 Triglycerides 305 mg/dL (2-149) H 03/22/21 07:26 Procalcitonin 0.17 ng/mL (<0.15) 04/01/21 07:16 Arterial Blood Glucose 306 mg/dL (65-95) H 03/12/21 21:54 Arterial Blood Ionized Calcium 5.0 mg/dL (4.6-5.3) 03/12/21 21:54 Urine Color Yellow (Yellow) 03/09/21 04:10 Urine Turbidity Slightly-cloudy (Clear) 03/09/21 04:10 Urine pH 5.0 (5.0-7.0) 03/09/21 04:10 Ur Specific [place] 1.041 (1.003-1.030) H 03/09/21 04:10 Urine Protein 100 mg/dl mg/dL (Negative) 03/09/21 04:10 Urine Glucose (UA) Neg mg/dL (Negative) 03/09/21 04:10 Urine Ketones Neg mg/dL (Negative) 03/09/21 04:10 Urine Blood Mod (Negative) 03/09/21 04:10 Urine Nitrite Neg (Negative) 03/09/21 04:10 Urine Bilirubin Neg (Negative) 03/09/21 04:10 Urine Urobilinogen 2.0 mg/dL (<2.0) 03/09/21 04:10 Ur Leukocyte Esterase Neg (Negative) 03/09/21 04:10 Urine WBC (Auto) 4.0 /HPF (0.0-6.0) 03/09/21 04:10 Urine RBC (Auto) 1.0 /HPF (0.0-6.0) 03/09/21 04:10 Urine Bacteria (Auto) 1+ /HPF (Negative) 03/09/21 04:10 Urine Mucus Few /HPF 03/09/21 04:10 Coronavirus (PCR) Positive (Negative) A 03/09/21 08:00 Miscellaneous Test Flexitest 1 03/16/21 13:14 Microbiology: Microbiology 03/31/21 13:30 Peripheral/Venous Blood Culture - Preliminary NO GROWTH AFTER 72 HOURS 03/31/21 14:00 Peripheral/Venous Blood Culture - Preliminary NO GROWTH AFTER 72 HOURS 03/31/21 15:55 Tracheal Aspirate Sputum Culture - Final Good/IV: Voiding Method Indwelling Catheter Active Medications - Current Medications Current Medications: Generic Name Dose Route Start Last Admin Trade Name Freq PRN Reason Stop Dose Admin Acetaminophen 650 mg 03/09/21 01:26 04/03/21 05:19 Acetaminophen 325 Mg Tab PO 650 mg Q4H PRN Administration Pain MILD(1-3)/Fever >100.5/RAYO Albuterol 2.5 mg 03/09/21 01:26 03/18/21 21:06 Albuterol 2.5 Mg/3 Ml Nebu IH 2.5 mg Q4HRT PRN Administration Shortness Of Breath Amlodipine Besylate 5 mg 03/30/21 10:00 04/03/21 10:01 Amlodipine 5 Mg Tab PO 5 mg QDAY BLANCA Administration Arformoterol Tartrate 15 mcg 03/11/21 20:00 04/03/21 08:16 Arformoterol 15 Mcg/2 Ml Nebu IH 15 mcg Q12HRT BLANCA Administration Ascorbic Acid 500 mg 03/10/21 14:00 04/03/21 10:00 Ascorbic Acid 500 Mg Tab PO 500 mg BID BLANCA Administration Bisacodyl 10 mg 03/26/21 13:43 03/26/21 13:51 Bisacodyl 10 Mg Rect Supp AK 10 mg QDAY PRN Administration Constipation Budesonide 0.25 mg 03/11/21 20:00 04/03/21 08:16 Budesonide 0.25 Mg/2 Ml Nebu IH 0.25 mg Q12HRT BLANCA Administration Chlordiazepoxide HCl 75 mg 03/22/21 18:00 04/03/21 18:03 Chlordiazepoxide 25 Mg Cap PO 75 mg Q6HR BLANCA Administration Dextrose 0 ml 03/20/21 10:52 Dextrose 10% *Hypoglycemia IV PRN PRN Hypoglycemia Doxazosin Mesylate 1 mg 03/23/21 14:00 04/03/21 10:14 Doxazosin 1 Mg Tab PO 1 mg QDAY BLANCA Administration Enoxaparin Sodium 30 mg 04/01/21 10:00 04/03/21 09:58 Enoxaparin 30 Mg/0.3 Ml Inj SUB-Q 30 mg Q12HR BLANCA Administration Famotidine 20 mg 03/12/21 22:00 04/03/21 09:59 Famotidine 20 Mg Tab FEEDTUBE 20 mg BID BLANCA Administration Fentanyl 1 applic 03/31/21 15:00 04/03/21 10:36 Fentanyl 75 Mcg/Hr Patch 72hr TD 1 applic Q3D BLANCA Administration Fentanyl 50 mcg 03/31/21 14:41 04/01/21 08:38 Fentanyl 100 Mcg/2 Ml Inj IV 50 mcg Q2H PRN Administration ANALGESIA Furosemide 20 mg 03/30/21 18:00 04/03/21 10:02 Furosemide 20 Mg/2 Ml Inj IV 04/04/21 17:59 20 mg QDAY BLANCA Administration Hydralazine HCl 50 mg 03/23/21 14:26 04/03/21 13:36 Hydralazine 25 Mg Tab PO 50 mg Q8HR BLANCA Administration Hydrophilic Ointment 1 applic 03/10/21 15:39 Lip Therapy Vaseline TP Q2HR PRN Dry Lips Fentanyl Citrate 2,000 mcg in 100 mls @ 5.897 mls/hr 03/10/21 17:00 04/03/21 13:36 Fentanyl Drip Premix IV 1 mcg/kg/hr TITR BLANCA 5.897 mls/hr Administration Protocol 1 MCG/KG/HR Propofol 1,000 mg in 100 mls @ 3.507 mls/hr 03/11/21 17:00 03/22/21 18:02 Diprivan 10 Mg/Ml IV 0 mcg/kg/min TITR BLANCA 0 mls/hr Titration Protocol 5 MCG/KG/MIN Insulin Glargine 15 units 03/29/21 22:00 04/02/21 21:11 Insulin Glargine 100 Units/Ml SUB-Q 15 units QHS BLANCA Administration Insulin Human Lispro 0 unit 03/11/21 18:00 04/03/21 18:03 Insulin Lispro 100 Unit/Ml SUB-Q 3 unit Q6HR [facility] Administration Protocol Labetalol HCl 10 mg 03/12/21 21:13 03/21/21 16:54 Labetalol 20 Mg/4 Ml Inj IV 10 mg Q6H PRN Administration Blood Pressure Metoprolol Tartrate 12.5 mg 03/21/21 22:00 04/03/21 10:00 Metoprolol Tartrate 25 Mg Tab PO 12.5 mg BID BLANCA Administration Midazolam HCl 2 mg 03/15/21 08:49 03/31/21 21:33 Midazolam 2 Mg/2 Ml Inj IV 2 mg Q2H PRN Administration VENT SYNCHRONY Multi-Ingred Cream/Lotion/Oil/Oint 1 applic 03/10/21 15:39 Mineral Oil/Petrolatum, White Ophth Oint 3.5 Gm OU Q4HR PRN Dry Eye(s) Ondansetron HCl 4 mg 03/09/21 01:26 Ondansetron 4 Mg/2 Ml Inj IV Q8H PRN Nausea And Vomiting Oxycodone HCl 5 mg 03/30/21 12:14 03/31/21 07:45 Oxycodone 5 Mg Tab PO 5 mg Q6H PRN Administration Pain, Moderate (4-6) Phenyleph/Shark Oil/Min Oil/Petrol 1 applic 03/22/21 17:35 03/31/21 18:20 Pe/Mo/Pet,Wh 10 Applic/28 Gm Tube AK 1 applic Q6HR PRN Administration Hemorrhoids Polyethylene Glycol 17 gm 04/02/21 10:00 04/03/21 09:59 Polyethylene Glycol 3350 17 Gm Powder FEEDTUBE 17 gm QDAY BLANCA Administration Prednisone 10 mg 03/29/21 10:00 04/03/21 09:59 Prednisone 10 Mg Tab PO 10 mg DAILY BLANCA Administration Quetiapine Fumarate 300 mg 03/21/21 22:00 04/03/21 09:59 Quetiapine 100 Mg Tab PO 300 mg BID BLANCA Administration Senna/Docusate Sodium 2 tab 04/02/21 10:00 04/03/21 09:59 Sennosides/Docusate Sodium 8.6/50 Mg Tab FEEDTUBE 2 tab BID BLANCA Administration Sodium Chloride 10 ml 03/09/21 10:00 04/03/21 10:35 Sodium Chloride 0.9% 10 Ml Flush Syringe IV 10 ml BID BLANCA Administration Sodium Chloride 10 ml 03/09/21 01:26 04/02/21 21:13 Sodium Chloride 0.9% 10 Ml Flush Syringe IV 10 ml PRN PRN Administration LINE FLUSH Sodium Chloride 10 ml 03/20/21 09:48 Sodium Chloride 0.9% 50 Ml Ivpb IV PRN PRN FLUSH Zinc Sulfate 220 mg 03/10/21 14:00 04/03/21 09:58 Zinc Sulfate 220 Mg Cap PO 220 mg BID BLANCA Administration Nutrition/Malnutrition Assess - Dietary Evaluation Nutrition/Malnutrition Findings: Nutrition Notes Start: 03/09/21 08:49 Freq: Status: Active Protocol: Document 03/31/21 14:51 BRIAN (Rec: 03/31/21 14:52 BRIAN [id number]) Nutrition Notes Initial or Follow up Reassessment Current Diagnosis Diabetes,Sepsis,Hypertension, Respiratory Failure Other Pertinent Diagnosis COVID-19, Bilateral Pneumonia. Current Diet TF-Glucerna 1.2 at 70 ml/hr Labs/Tests Na 140 yesterday Pertinent Medications Lasix, Reglan, Prednisone Height 5 ft 11 in Weight 122 kg [place] Body Weight (kg) 78.18 BMI 37.5 Weight Status Obese Subjective/Other Information Pt remains on vent support. Trach and PEG placed on 2/2. Per RN, pt tolerating TF at goal rate. Percent of energy/protein needs met: 82% energy 78% pro Burn Absent Trauma Absent #1 Nutrition Diagnosis Inadequate oral intake Diagnosis Progress(for reassessment Continues documentation) Is patient on ventilator? Yes Is Patient Ambulatory and/or Out of Bed No REE-([place]-[facility] Jeor-confined to bed) 2449.140 Calculation Used for Recommendations 70-80% energy needs Additional Notes Energy needs: 3939-8030 kcal/ day Pro needs 1.3g/kg adjBW: 130g/ day Fluid needs 1ml/kcal Nutrition Intervention Nutrition Support: Continue Glucerna 1.2 at 70ml/ hr with 110ml water flush q4h. Kcal 2,016 Protein (gm) 101 Carbohydrates (gm) 192 Fat (gm) 101 Fluid (mL) 1,352 Fiber (gm) 27 Goal #1 TF tolerance Goal #2 TF to meet at least 75% energy and pro needs Follow-Up By: 04/07/21 Additional Comments F/U: stable TF, vent status, wt <ARABELLA CASTILLO - Last Filed: 04/11/21 07:15> Assessment and Plan Assessment and plan: I saw and evaluated the patient. I agree with the findings and the plan of care as documented in the Nurse Practitioner's~note, with the following corrections and additions. Hospitalist Physical - Constitutional Vitals: Temp Pulse Resp BP Pulse Ox 99.5 F 103 H 29 H 113/52 100 04/11/21 04:00 04/11/21 06:00 04/11/21 06:00 04/11/21 06:00 04/11/21 06:00 Results - Labs CBC & Chem 7: 04/11/21 04:30 04/11/21 04:30 Labs: Laboratory Last Values WBC 11.5 K/mm3 (4.5-11.0) H 04/11/21 04:30 RBC 3.02 M/mm3 (3.65-5.03) L 04/11/21 04:30 Hgb 8.9 gm/dl (11.8-15.2) L 04/11/21 04:30 Hct 27.8 % (35.5-45.6) L 04/11/21 04:30 MCV 92 fl (84-94) 04/11/21 04:30 MCH 30 pg (28-32) 04/11/21 04:30 MCHC 32 % (32-34) 04/11/21 04:30 RDW 16.0 % (13.2-15.2) H 04/11/21 04:30 Plt Count 505 K/mm3 (140-440) H 04/11/21 04:30 Lymph % (Auto) 7.6 % (13.4-35.0) L 03/31/21 13:30 Cloud % (Auto) 9.5 % (0.0-7.3) H 03/31/21 13:30 Eos % (Auto) 4.1 % (0.0-4.3) 03/31/21 13:30 Baso % (Auto) 0.5 % (0.0-1.8) 03/31/21 13:30 Lymph # (Auto) 0.6 K/mm3 (1.2-5.4) L 03/31/21 13:30 Cloud # (Auto) 0.7 K/mm3 (0.0-0.8) 03/31/21 13:30 Eos # (Auto) 0.3 K/mm3 (0.0-0.4) 03/31/21 13:30 Baso # (Auto) 0.0 K/mm3 (0.0-0.1) 03/31/21 13:30 Add Manual Diff Complete 03/10/21 04:29 Total Counted 100 03/10/21 04:29 Seg Neutrophils % 78.3 % (40.0-70.0) H 03/31/21 13:30 Seg Neuts % (Manual) 94.0 % (40.0-70.0) H 03/10/21 04:29 Band Neutrophils % 0 % 03/10/21 04:29 Lymphocytes % (Manual) 1.0 % (13.4-35.0) L 03/10/21 04:29 Reactive Lymphs % (Man) 0 % 03/10/21 04:29 Monocytes % (Manual) 5.0 % (0.0-7.3) 03/10/21 04:29 Eosinophils % (Manual) 0 % (0.0-4.3) 03/10/21 04:29 Basophils % (Manual) 0 % (0.0-1.8) 03/10/21 04:29 Metamyelocytes % 0 % 03/10/21 04:29 Myelocytes % 0 % 03/10/21 04:29 Promyelocytes % 0 % 03/10/21 04:29 Blast Cells % 0 % 03/10/21 04:29 Nucleated RBC % 3.0 % (0.0-0.9) H 03/10/21 04:29 Seg Neutrophils # 5.8 K/mm3 (1.8-7.7) 03/31/21 13:30 Seg Neutrophils # Man 19.4 K/mm3 (1.8-7.7) H 03/10/21 04:29 Band Neutrophils # 0.0 K/mm3 03/10/21 04:29 Lymphocytes # (Manual) 0.2 K/mm3 (1.2-5.4) L 03/10/21 04:29 Abs React Lymphs (Man) 0.0 K/mm3 03/10/21 04:29 Monocytes # (Manual) 1.0 K/mm3 (0.0-0.8) H 03/10/21 04:29 Eosinophils # (Manual) 0.0 K/mm3 (0.0-0.4) 03/10/21 04:29 Basophils # (Manual) 0.0 K/mm3 (0.0-0.1) 03/10/21 04:29 Metamyelocytes # 0.0 K/mm3 03/10/21 04:29 Myelocytes # 0.0 K/mm3 03/10/21 04:29 Promyelocytes # 0.0 K/mm3 03/10/21 04:29 Blast Cells # 0.0 K/mm3 03/10/21 04:29 WBC Morphology Not Reportable 03/10/21 04:29 Hypersegmented Neuts Not Reportable 03/10/21 04:29 Hyposegmented Neuts Not Reportable 03/10/21 04:29 Hypogranular Neuts Not Reportable 03/10/21 04:29 Smudge Cells Not Reportable 03/10/21 04:29 Toxic Granulation Not Reportable 03/10/21 04:29 Toxic Vacuolation Not Reportable 03/10/21 04:29 Dohle Bodies Not Reportable 03/10/21 04:29 Pelger-Huet Anomaly Not Reportable 03/10/21 04:29 Mely Rods Not Reportable 03/10/21 04:29 Platelet Estimate Consistent w auto 03/10/21 04:29 Clumped Platelets Not Reportable 03/10/21 04:29 Plt Clumps, EDTA Not Reportable 03/10/21 04:29 Large Platelets Not Reportable 03/10/21 04:29 Giant Platelets Not Reportable 03/10/21 04:29 Platelet Satelliting Not Reportable 03/10/21 04:29 Plt Morphology Comment Not Reportable 03/10/21 04:29 RBC Morphology Normal 03/10/21 04:29 Dimorphic RBCs Not Reportable 03/10/21 04:29 Polychromasia Not Reportable 03/10/21 04:29 Hypochromasia Not Reportable 03/10/21 04:29 Poikilocytosis Not Reportable 03/10/21 04:29 Anisocytosis Not Reportable 03/10/21 04:29 Microcytosis Not Reportable 03/10/21 04:29 Macrocytosis Not Reportable 03/10/21 04:29 Spherocytes Not Reportable 03/10/21 04:29 Pappenheimer Bodies Not Reportable 03/10/21 04:29 Sickle Cells Not Reportable 03/10/21 04:29 Target Cells Not Reportable 03/10/21 04:29 Tear Drop Cells Not Reportable 03/10/21 04:29 Ovalocytes Not Reportable 03/10/21 04:29 Helmet Cells Not Reportable 03/10/21 04:29 Longo-[place] Bodies Not Reportable 03/10/21 04:29 [place] Rings Not Reportable 03/10/21 04:29 Shama Cells Not Reportable 03/10/21 04:29 Bite Cells Not Reportable 03/10/21 04:29 Crenated Cell Not Reportable 03/10/21 04:29 Elliptocytes Not Reportable 03/10/21 04:29 Acanthocytes (Spur) Not Reportable 03/10/21 04:29 Rouleaux Not Reportable 03/10/21 04:29 Hemoglobin C Crystals Not Reportable 03/10/21 04:29 Schistocytes Not Reportable 03/10/21 04:29 Malaria parasites Not Reportable 03/10/21 04:29 Shaheen Bodies Not Reportable 03/10/21 04:29 Hem Pathologist Commnt No 03/10/21 04:29 PT 13.6 Sec. (12.2-14.9) 04/06/21 15:36 INR 0.94 (0.87-1.13) 04/06/21 15:36 APTT 37.1 Sec. (24.2-36.6) H 04/06/21 15:36 D-Dimer 1359.12 ng/mlDDU (0-234) H 03/17/21 04:40 Heparin Anti-Xa Level 0.61 U.I./ml (0.3-0.7) 04/11/21 04:30 ABG pH 7.424 pH Units (7.350-7.450) 04/09/21 20:10 POC ABG pCO2 57.4 mmHg (32.0-48.0) H 04/06/21 04:49 ABG pCO2 64.5 mm Hg 04/09/21 20:10 POC ABG pO2 55.1 mmHg (83-108) L 04/06/21 04:49 ABG pO2 68.1 mm Hg (80.0-90.0) L 04/09/21 20:10 POC ABG HCO3 36.2 04/06/21 04:49 ABG HCO3 41.3 mmol/L (20.0-26.0) H 04/09/21 20:10 ABG O2 Saturation 97.1 % (95.0-99.0) 04/09/21 20:10 ABG O2 Content 13.6 (0.0-44) 04/09/21 20:10 POC ABG Base Excess 10.0 04/06/21 04:49 ABG Base Excess 14.6 mmol/L (-2.0-3.0) H 04/09/21 20:10 ABG Hemoglobin 10.2 gm/dl (14.0-18.0) L 04/09/21 20:10 ABG Oxyhemoglobin 87.5 (94-98) L 04/06/21 04:49 ABG Carboxyhemoglobin 2.0 % (0.0-5.0) 04/09/21 20:10 ABG Methemoglobin 0.5 % (0.0-1.5) 04/09/21 20:10 ABG Sodium 134.2 mmol/L (136.0-145.0) L 03/12/21 21:54 ABG Potassium 4.9 mmol/L (3.40-4.50) H 03/12/21 21:54 ABG Chloride 99.0 mmol/L (98-107) 03/12/21 21:54 ABG Glucose 306 mg/dL (65-95) H 03/12/21 21:54 Oxyhemoglobin 94.7 % (95.0-99.0) L 04/09/21 20:10 Carboxyhemoglobin 0.8 (0.5-1.5) 04/06/21 04:49 FiO2 40 % 04/09/21 20:10 FiO2 % 40.0 04/06/21 04:49 Sodium TNR 04/11/21 04:30 Potassium TNR 04/11/21 04:30 Chloride TNR 04/11/21 04:30 Carbon Dioxide TNR 04/11/21 04:30 Anion Gap TNR 04/11/21 04:30 BUN TNR 04/11/21 04:30 Creatinine TNR 04/11/21 04:30 Estimated GFR TNR 04/11/21 04:30 BUN/Creatinine Ratio TNR 04/11/21 04:30 Glucose TNR 04/11/21 04:30 POC Glucose 164 mg/dL (70-105) H 04/11/21 05:39 Lactic Acid 1.90 mmol/L (0.7-2.0) 03/08/21 23:51 Calcium TNR 04/11/21 04:30 Phosphorus 2.90 mg/dL (2.5-4.5) D 04/10/21 13:00 Magnesium 2.20 mg/dL (1.7-2.3) 04/10/21 13:00 Ferritin 976.4 ng/mL (30.0-300.0) H 03/15/21 04:00 Total Bilirubin 0.20 mg/dL (0.1-1.2) 03/12/21 08:03 AST 10 units/L (5-40) 03/12/21 08:03 ALT 16 units/L (7-56) 03/12/21 08:03 Alkaline Phosphatase 77 units/L (35-129) 03/12/21 08:03 Lactate Dehydrogenase 630 units/L (91-180) H 03/15/21 06:06 C-Reactive Protein 0.40 mg/dL (0.00-1.30) 03/17/21 04:40 NT-Pro-B Natriuret Pep 1053 pg/mL (0-900) H 03/08/21 20:24 Total Protein 6.0 g/dL (6.3-8.2) L 03/12/21 08:03 Albumin 2.9 g/dL (3.9-5) L 03/12/21 08:03 Albumin/Globulin Ratio 0.9 % 03/12/21 08:03 Triglycerides 305 mg/dL (2-149) H 03/22/21 07:26 Procalcitonin 0.17 ng/mL (<0.15) 04/01/21 07:16 Arterial Blood Glucose 306 mg/dL (65-95) H 03/12/21 21:54 Arterial Blood Ionized Calcium 5.0 mg/dL (4.6-5.3) 03/12/21 21:54 Urine Color Yellow (Yellow) 03/09/21 04:10 Urine Turbidity Slightly-cloudy (Clear) 03/09/21 04:10 Urine pH 5.0 (5.0-7.0) 03/09/21 04:10 Ur Specific [place] 1.041 (1.003-1.030) H 03/09/21 04:10 Urine Protein 100 mg/dl mg/dL (Negative) 03/09/21 04:10 Urine Glucose (UA) Neg mg/dL (Negative) 03/09/21 04:10 Urine Ketones Neg mg/dL (Negative) 03/09/21 04:10 Urine Blood Mod (Negative) 03/09/21 04:10 Urine Nitrite Neg (Negative) 03/09/21 04:10 Urine Bilirubin Neg (Negative) 03/09/21 04:10 Urine Urobilinogen 2.0 mg/dL (<2.0) 03/09/21 04:10 Ur Leukocyte Esterase Neg (Negative) 03/09/21 04:10 Urine WBC (Auto) 4.0 /HPF (0.0-6.0) 03/09/21 04:10 Urine RBC (Auto) 1.0 /HPF (0.0-6.0) 03/09/21 04:10 Urine Bacteria (Auto) 1+ /HPF (Negative) 03/09/21 04:10 Urine Mucus Few /HPF 03/09/21 04:10 Coronavirus (PCR) Positive (Negative) A 03/09/21 08:00 Miscellaneous Test Flexitest 1 03/16/21 13:14 Good/IV: Voiding Method Indwelling Catheter Active Medications - Current Medications Current Medications: Generic Name Dose Route Start Last Admin Trade Name Freq PRN Reason Stop Dose Admin Acetaminophen 650 mg 03/09/21 01:26 04/07/21 21:40 Acetaminophen 325 Mg Tab PO 650 mg Q4H PRN Administration Pain MILD(1-3)/Fever >100.5/RAYO Albuterol 2.5 mg 03/09/21 01:26 03/18/21 21:06 Albuterol 2.5 Mg/3 Ml Nebu IH 2.5 mg Q4HRT PRN Administration Shortness Of Breath Amlodipine Besylate 5 mg 03/30/21 10:00 04/10/21 10:11 Amlodipine 5 Mg Tab PO 5 mg QDAY BLANCA Administration Arformoterol Tartrate 15 mcg 03/11/21 20:00 04/10/21 20:00 Arformoterol 15 Mcg/2 Ml Nebu IH 15 mcg Q12HRT BLANCA Administration Bisacodyl 10 mg 03/26/21 13:43 03/26/21 13:51 Bisacodyl 10 Mg Rect Supp [place] 10 mg QDAY PRN Administration Constipation Budesonide 0.5 mg 04/06/21 20:00 04/10/21 20:00 Budesonide 0.5 Mg/2 Ml Nebu IH 0.5 mg Q12HRT BLANCA Administration Budesonide 0.25 mg 04/09/21 09:00 04/10/21 20:01 Budesonide 0.25 Mg/2 Ml Nebu IH Not Given Q12HRT BLANCA Chlordiazepoxide HCl 75 mg 03/22/21 18:00 04/11/21 05:54 Chlordiazepoxide 25 Mg Cap PO Not Given Q6HR BLANCA Dextrose 0 ml 03/20/21 10:52 Dextrose 10% *Hypoglycemia IV PRN PRN Hypoglycemia Doxazosin Mesylate 1 mg 04/05/21 22:00 04/10/21 21:07 Doxazosin 1 Mg Tab PO 1 mg BID BLANCA Administration Famotidine 20 mg 03/12/21 22:00 04/10/21 21:07 Famotidine 20 Mg Tab FEEDTUBE 20 mg BID BLANCA Administration Fentanyl 1 applic 03/31/21 15:00 04/09/21 09:50 Fentanyl 75 Mcg/Hr Patch 72hr TD 1 applic Q3D BLANCA Administration Fentanyl 50 mcg 04/04/21 17:00 04/08/21 18:11 Fentanyl 100 Mcg/2 Ml Inj IV 50 mcg Q10MIN PRN Administration ANALGESIA Heparin Sodium (Porcine) 4,900 unit 04/07/21 01:47 04/07/21 20:37 Heparin 10,000 Units/10 Ml Vial 40 unit/kg (4900 unit) 4,900 unit IV Administration Q6H PRN Anti-Xa Assay < 0.1 units/ml Hydralazine HCl 50 mg 03/23/21 14:26 04/11/21 05:53 Hydralazine 25 Mg Tab PO 50 mg Q8HR BLANCA Administration Fentanyl Citrate 2,000 mcg in 100 mls @ 6.1 mls/hr 04/04/21 17:00 04/11/21 02:47 Fentanyl Drip Premix IV 2 mcg/kg/hr TITR BLANCA 12.2 mls/hr Titration Protocol 1 MCG/KG/HR Heparin Sodium/Sodium Chloride 25,000 unit in 500 mls @ 30 mls/hr 04/06/21 16:00 04/11/21 05:53 Heparin/ 0.45% Nacl-25,000 Unit/500 Ml IV 2,550 units/hr TITR BLANCA 51 mls/hr Administration Protocol 1,500 UNITS/HR Insulin Glargine 18 units 04/07/21 22:00 04/10/21 21:46 Insulin Glargine 100 Units/Ml SUB-Q 18 units QHS [facility] Administration Insulin Human Lispro 0 unit 03/11/21 18:00 04/11/21 05:52 Insulin Lispro 100 Unit/Ml SUB-Q 3 unit Q6HR BLANCA Administration Protocol Metoprolol Tartrate 12.5 mg 03/21/21 22:00 04/10/21 21:06 Metoprolol Tartrate 25 Mg Tab PO 12.5 mg BID BLANCA Administration Midazolam HCl 2 mg 03/15/21 08:49 04/10/21 17:13 Midazolam 2 Mg/2 Ml Inj IV 2 mg Q2H PRN Administration VENT SYNCHRONY Ondansetron HCl 4 mg 03/09/21 01:26 Ondansetron 4 Mg/2 Ml Inj IV Q8H PRN Nausea And Vomiting Oxycodone HCl 5 mg 04/05/21 14:00 04/10/21 21:11 Oxycodone 5 Mg Tab PO 5 mg TID BLANCA Administration Phenyleph/Shark Oil/Min Oil/Petrol 1 applic 03/22/21 17:35 04/06/21 04:04 Pe/Mo/Pet,Wh 10 Applic/28 Gm Tube AK 1 applic Q6HR PRN Administration Hemorrhoids Polyethylene Glycol 17 gm 04/02/21 10:00 04/10/21 10:12 Polyethylene Glycol 3350 17 Gm Powder FEEDTUBE 17 gm QDAY BLANCA Administration Quetiapine Fumarate 200 mg 04/04/21 22:00 04/10/21 21:11 Quetiapine 200 Mg Tab PO 200 mg BID BLANCA Administration Quetiapine Fumarate 50 mg 04/05/21 14:00 04/10/21 21:11 Quetiapine 25 Mg Tab PO 50 mg BID BLANCA Administration Senna/Docusate Sodium 2 tab 04/02/21 10:00 04/10/21 21:09 Sennosides/Docusate Sodium 8.6/50 Mg Tab FEEDTUBE Not Given BID BLANCA Sodium Chloride 10 ml 03/09/21 10:00 04/10/21 21:12 Sodium Chloride 0.9% 10 Ml Flush Syringe IV Not Given BID BLANCA Sodium Chloride 10 ml 03/09/21 01:26 04/10/21 21:07 Sodium Chloride 0.9% 10 Ml Flush Syringe IV 10 ml PRN PRN Administration LINE FLUSH Sodium Chloride 10 ml 03/20/21 09:48 Sodium Chloride 0.9% 50 Ml Ivpb IV PRN PRN FLUSH Nutrition/Malnutrition Assess - Dietary Evaluation Nutrition/Malnutrition Findings: Nutrition Notes Start: 03/09/21 08:49 Freq: Status: Active Protocol: Document 04/07/21 14:55 BRIAN (Rec: 04/07/21 14:58 BRIAN [id number]) Nutrition Notes Initial or Follow up Reassessment Current Diagnosis Diabetes,Sepsis,Hypertension, Respiratory Failure Other Pertinent Diagnosis COVID-19, Bilateral Pneumonia. Current Diet TF-Glucerna 1.2 at 70 ml/hr Labs/Tests BG 216 Pertinent Medications Heparin gtt, Miralax, Senokot Height 5 ft 11 in Weight 122 kg [place] Body Weight (kg) 78.18 BMI 37.5 Weight Status Obese Subjective/Other Information Pt remains on vent support. Per RN, pt tolerating TF at goal rate. Percent of energy/protein needs met: 82% energy 78% pro Burn Absent Trauma Absent #1 Nutrition Diagnosis Inadequate oral intake Diagnosis Progress(for reassessment Continues documentation) Is patient on ventilator? Yes Is Patient Ambulatory and/or Out of Bed No REE-([facility]-confined to bed) [phone] Calculation Used for Recommendations 70-80% energy needs Additional Notes Energy needs: 6129-4480 kcal/ day Pro needs 1.3g/kg adjBW: 130g/ day Fluid needs 1ml/kcal Nutrition Intervention Nutrition Support: Continue Glucerna 1.2 at 70ml/ hr with 110ml water flush q4h. Kcal 2,016 Protein (gm) 101 Carbohydrates (gm) 192 Fat (gm) 101 Fluid (mL) 1,352 Fiber (gm) 27 Goal #1 TF tolerance Goal #2 TF to meet at least 75% energy and pro needs Follow-Up By: 04/14/21 Additional Comments F/U: stable TF, vent status, wt
[2021-04-03] MEDS: INSULIN GLARGINE 100 UNITS/ML SUB-Q SCH (22:03)
[2021-04-04] MEDS: chlordiazePOXIDE 25 MG CAP PO SCH ×4 (00:13→18:18)
[2021-04-04] MEDS: INSULIN LISPRO 100 UNIT/ML SUB-Q SCH ×4 (00:25→18:18)
[2021-04-04] MEDS: MIDAZOLAM 2 MG/2 ML INJ IV PRN (02:19)
[2021-04-04] MEDS: hydrALAZINE 25 MG TAB PO SCH ×3 (05:02→21:08)
[2021-04-04 05:31] LABS: Hematocrit 32.7 % (35.5-45.6); Hemoglobin 10.3 gm/dl (11.8-15.2); Mean Corpuscular HGB Conc 32 % (32-34); Mean Corpuscular Volume 94 fl (84-94); Red Blood Count 3.49 M/mm3 (3.65-5.03); Red Cell Distribution Width 16.1 % (13.2-15.2)
[2021-04-04 05:34] LABS: Platelet Count 344 K/mm3 (140-440)
[2021-04-04 05:44] LABS: Blood Urea Nitrogen 17 mg/dL (9-20); Calcium 8.5 mg/dL (8.4-10.2); Hemolysis Index 22
[2021-04-04 05:45] LABS: BUN/Creatinine Ratio 43
[2021-04-04] MEDS: fentaNYL DRIP Premix 2,000 MCG/100 ML BAG IV SCH ×2 (05:54→16:15)
[2021-04-04] MEDS: BUDESONIDE 0.25 MG/2 ML NEBU IH SCH ×2 (08:09→20:00)
[2021-04-04] MEDS: ARFORMOTEROL 15 MCG/2 ML NEBU IH SCH ×2 (08:09→20:00)
[2021-04-04] MEDS: ACETAMINOPHEN 325 MG TAB PO PRN (08:35)
[2021-04-04] MEDS: DOXAZOSIN 1 MG TAB PO SCH (10:02)
[2021-04-04] MEDS: FAMOTIDINE 20 MG TAB FEEDTUBE SCH ×2 (10:03→21:09)
[2021-04-04] MEDS: METOPROLOL TARTRATE 25 MG TAB PO SCH ×2 (10:03→21:08)
[2021-04-04] MEDS: QUEtiapine 100 MG TAB PO SCH (10:03)
[2021-04-04] MEDS: amLODIPine 5 MG TAB PO SCH (10:03)
[2021-04-04] MEDS: predniSONE 10 MG TAB PO SCH (10:04)
[2021-04-04] MEDS: SENNOSIDES/DOCUSATE SODIUM 8.6/50 MG TAB FEEDTUBE SCH ×2 (10:04→21:07)
[2021-04-04] MEDS: POLYETHYLENE GLYCOL 3350 17 GM POWDER FEEDTUBE SCH (10:04)
[2021-04-04] MEDS: FUROSEMIDE 20 MG/2 ML INJ IV SCH (10:04)
[2021-04-04] MEDS: ENOXAPARIN 30 MG/0.3 ML INJ SUB-Q SCH ×2 (10:15→21:07)
--- NOTE | 2021-04-04 13:12 | Progress Note ---
Assessment and Plan Acute hypoxemic respiratory failure, on continuous noninvasive ventilation COVID-19 infection Bilateral pneumonia History of diabetes Obesity Hypertension Leukocytosis Possible venous thromboembolic phenomena with significantly elevated D-dimers DM II Elevated serum inflammatory markers to include CRP levels, ferritin and LDH - taper off systemic steroids - BC's X 2 sets for fever > 101F - follow clinically off AB's acutely - continue LTAC evaluation - continue Daily SAT and SBT assessment as tolerated - prn CXR's & ABG's at this point - continue care as below otherwise; - continue to wean supplemental oxygen for target O2 sat's > 90% acutely - VAP bundle addressed - continue lung protective strategies - continue bronchodilators with routiune trach care and pulmonary hygiene per RT - wean per pulmonary driven protocols otherwise - continue accuchecks with glycemic control per SSI (While critically ill target blood glucose of 140-180 mg/dL; avoid hypoglycemia) - sedation prn for target RASS 0 to -1 - avoid nephrotoxins, renally dose all medications - avoid benzodiazepine's, reduce the possibility of delirium - AB's per ID rec's - prn analgesia per pain score - Maintenance of sleep-wake cycle, avoid delirium - G.I. & VTE prophylaxis - PT/OT/ROM exercises - mobility protocols for pressure ulcer prophylaxis - Monitor hemodynamics closely - continue other care per attending / other consultants - discharge planning ongoing concurrently COVID SPECIFIC INTERVENTIONS - Remdesivir as per ID/Pulmonary developed protocols (received) - continue systemic steroids for severe COVID-19 infection empirically (Decadron) - follow repeat COVID tests results - zinc and vitamin C supplementation - Monitor inflammatory markers per facility protocol - ferritin, Ddimer, CRP - therapeutic anticoagulation per system Protocol based on d-dimer and clinical considerations (treatment dose) - contact and airborne isolation discontinued .... Re-evaluate in am & prn CONDITION: CRITICAL PROGNOSIS: GUARDED CODE STATUS: FULL CODE The high probability of a clinically significant, sudden or life-threatening deterioration of the [respiratory, cardiovascular & hematologic] system(s) required my full and direct attention, intervention and personal management. The aggregate critical care time was [33] minutes without overlap. Time includes spent on; [x] Data Review and interpretation [x] Patient assessment and monitoring of vital signs [x] Documentation [x] Medication orders and management Subjective Date of service: 04/04/21 Principal diagnosis: COVID-19 infection; DM II; Bilateral pneumonia; Obesity; HTN Interval history: Patient is seen today for: Acute hypoxemic respiratory failure; COVID-19 infection; DM II; Bilateral pneumonia; Obesity; HTN Seen and examined at bedside; 24hour events reviewed; nursing and respiratory care staff consulted; no adverse overnight events reported to me; resting in bed; remains on MVS; low grade fever today; on SBT and tolerating well so far t julissa; no N/V reported Objective Vital Signs - 12hr 04/04/21 04/04/21 04/04/21 01:15 01:31 01:45 Temperature Pulse Rate 110 H 110 H 109 H Pulse Rate [ Bilateral Throughout] Pulse Rate [ From Monitor] Respiratory Rate Respiratory Rate [Bilateral Throughout] Blood Pressure 136/82 136/82 136/82 O2 Sat by Pulse 92 92 92 Oximetry O2 Sat by Pulse Oximetry [ Assessment] 04/04/21 04/04/21 04/04/21 02:01 02:15 02:31 Temperature Pulse Rate 112 H 112 H Pulse Rate [ Bilateral Throughout] Pulse Rate [ From Monitor] Respiratory 38 H 32 H Rate Respiratory Rate [Bilateral Throughout] Blood Pressure 196/100 158/84 158/84 O2 Sat by Pulse 88 90 91 Oximetry O2 Sat by Pulse Oximetry [ Assessment] 04/04/21 04/04/21 04/04/21 02:45 03:00 03:15 Temperature Pulse Rate 110 H 109 H 107 H Pulse Rate [ Bilateral Throughout] Pulse Rate [ From Monitor] Respiratory 28 H 28 H 22 Rate Respiratory Rate [Bilateral Throughout] Blood Pressure 158/84 167/80 167/80 O2 Sat by Pulse 91 90 89 Oximetry O2 Sat by Pulse Oximetry [ Assessment] 04/04/21 04/04/21 04/04/21 03:31 03:45 04:00 Temperature 99.8 F H Pulse Rate 108 H 107 H 107 H Pulse Rate [ Bilateral Throughout] Pulse Rate [ 106 H From Monitor] Respiratory 27 H 28 H 27 H Rate Respiratory Rate [Bilateral Throughout] Blood Pressure 167/80 167/80 131/79 O2 Sat by Pulse 88 91 89 Oximetry O2 Sat by Pulse Oximetry [ Assessment] 04/04/21 04/04/21 04/04/21 04:15 04:20 04:31 Temperature Pulse Rate 109 H 108 H 109 H Pulse Rate [ Bilateral Throughout] Pulse Rate [ From Monitor] Respiratory 23 31 H Rate Respiratory Rate [Bilateral Throughout] Blood Pressure 131/79 131/79 131/79 O2 Sat by Pulse 88 91 91 Oximetry O2 Sat by Pulse Oximetry [ Assessment] 04/04/21 04/04/21 04/04/21 04:45 05:00 05:02 Temperature Pulse Rate 111 H 107 H 107 H Pulse Rate [ Bilateral Throughout] Pulse Rate [ From Monitor] Respiratory 21 29 H Rate Respiratory Rate [Bilateral Throughout] Blood Pressure 131/79 129/75 129/75 O2 Sat by Pulse 90 92 Oximetry O2 Sat by Pulse Oximetry [ Assessment] 04/04/21 04/04/21 04/04/21 05:15 05:31 05:45 Temperature Pulse Rate 108 H 109 H 108 H Pulse Rate [ Bilateral Throughout] Pulse Rate [ From Monitor] Respiratory 30 H 27 H 29 H Rate Respiratory Rate [Bilateral Throughout] Blood Pressure 129/75 129/75 129/75 O2 Sat by Pulse 92 92 92 Oximetry O2 Sat by Pulse Oximetry [ Assessment] 04/04/21 04/04/21 04/04/21 06:00 06:15 06:31 Temperature Pulse Rate 108 H 107 H 106 H Pulse Rate [ Bilateral Throughout] Pulse Rate [ From Monitor] Respiratory 31 H 30 H 29 H Rate Respiratory Rate [Bilateral Throughout] Blood Pressure 119/71 119/71 119/71 O2 Sat by Pulse 91 92 92 Oximetry O2 Sat by Pulse Oximetry [ Assessment] 04/04/21 04/04/21 04/04/21 06:45 07:00 07:15 Temperature Pulse Rate 106 H 111 H 111 H Pulse Rate [ Bilateral Throughout] Pulse Rate [ 111 H From Monitor] Respiratory 28 H 37 H 30 H Rate Respiratory Rate [Bilateral Throughout] Blood Pressure 119/71 178/89 178/89 O2 Sat by Pulse 93 92 91 Oximetry O2 Sat by Pulse Oximetry [ Assessment] 04/04/21 04/04/21 04/04/21 07:18 07:31 07:38 Temperature 100.6 F H Pulse Rate 111 H 114 H Pulse Rate [ Bilateral Throughout] Pulse Rate [ From Monitor] Respiratory 36 H Rate Respiratory Rate [Bilateral Throughout] Blood Pressure 178/89 O2 Sat by Pulse 91 Oximetry O2 Sat by Pulse Oximetry [ Assessment] 04/04/21 04/04/21 04/04/21 07:45 08:00 08:06 Temperature Pulse Rate 116 H 113 H Pulse Rate [ Bilateral Throughout] Pulse Rate [ From Monitor] Respiratory 39 H 10 L Rate Respiratory Rate [Bilateral Throughout] Blood Pressure 178/89 145/76 O2 Sat by Pulse 95 90 Oximetry O2 Sat by Pulse 90 Oximetry [ Assessment] 04/04/21 04/04/21 04/04/21 08:09 08:15 08:31 Temperature Pulse Rate 113 H 114 H Pulse Rate [ 109 H Bilateral Throughout] Pulse Rate [ From Monitor] Respiratory 32 H 29 H Rate Respiratory 26 H Rate [Bilateral Throughout] Blood Pressure 145/76 145/76 O2 Sat by Pulse 97 97 Oximetry O2 Sat by Pulse Oximetry [ Assessment] 04/04/21 04/04/21 04/04/21 08:45 09:00 09:15 Temperature Pulse Rate 112 H 110 H 109 H Pulse Rate [ Bilateral Throughout] Pulse Rate [ From Monitor] Respiratory 27 H 26 H 29 H Rate Respiratory Rate [Bilateral Throughout] Blood Pressure 145/76 127/76 127/76 O2 Sat by Pulse 97 97 92 Oximetry O2 Sat by Pulse Oximetry [ Assessment] 04/04/21 04/04/21 04/04/21 09:31 09:45 10:00 Temperature Pulse Rate 107 H 106 H 104 H Pulse Rate [ Bilateral Throughout] Pulse Rate [ From Monitor] Respiratory 27 H 29 H 28 H Rate Respiratory Rate [Bilateral Throughout] Blood Pressure 127/76 127/76 125/69 O2 Sat by Pulse 92 92 91 Oximetry O2 Sat by Pulse Oximetry [ Assessment] 04/04/21 04/04/21 04/04/21 10:02 10:03 10:15 Temperature Pulse Rate 104 H 104 H 103 H Pulse Rate [ Bilateral Throughout] Pulse Rate [ From Monitor] Respiratory 29 H Rate Respiratory Rate [Bilateral Throughout] Blood Pressure 125/69 125/69 125/69 O2 Sat by Pulse 93 Oximetry O2 Sat by Pulse Oximetry [ Assessment] 04/04/21 04/04/21 04/04/21 10:31 10:45 11:00 Temperature Pulse Rate 104 H 103 H 101 H Pulse Rate [ Bilateral Throughout] Pulse Rate [ From Monitor] Respiratory 27 H 26 H 28 H Rate Respiratory Rate [Bilateral Throughout] Blood Pressure 125/69 125/69 127/76 O2 Sat by Pulse 95 94 93 Oximetry O2 Sat by Pulse Oximetry [ Assessment] 04/04/21 04/04/21 04/04/21 11:15 11:45 11:52 Temperature 99.1 F Pulse Rate 100 H 101 H Pulse Rate [ Bilateral Throughout] Pulse Rate [ From Monitor] Respiratory 28 H Rate Respiratory Rate [Bilateral Throughout] Blood Pressure 127/76 O2 Sat by Pulse 94 Oximetry O2 Sat by Pulse Oximetry [ Assessment] 04/04/21 04/04/21 11:53 12:15 Temperature Pulse Rate 99 H Pulse Rate [ Bilateral Throughout] Pulse Rate [ 101 H From Monitor] Respiratory 27 H 29 H Rate Respiratory Rate [Bilateral Throughout] Blood Pressure 115/75 O2 Sat by Pulse 94 94 Oximetry O2 Sat by Pulse Oximetry [ Assessment] Constitutional: no acute distress, agitated, other (elderly obese male with mildly increased respiratory effort at rest) Eyes: non-icteric ENT: oropharynx moist, other (+ midline tracheostomy) Neck: supple, no lymphadenopathy, no JVD, other (large circumference) Effort: mildly labored Ascultation: Bilateral: diminished breath sounds, rhonchi Percussion: Bilateral: not dull Cardiovascular: regular rate and rhythm, other (tachycardia, S1,S2) Gastrointestinal: normoactive bowel sounds, soft, non-tender, non-distended (protuberant) Integumentary: normal Extremities: no cyanosis, pulses normal, no ischemia or petechiae, edema, other Neurologic: non-focal exam (grossly), pupils equal and round, other (sedated) Psychiatric: other (unable to assess re: AMS) CBC and BMP: 04/05/21 04:15 04/05/21 04:15 ABG, PT/INR, D-dimer: ABG ABG pH 7.397 pH Units (7.350-7.450) 03/31/21 12:50 POC ABG pCO2 71.9 mmHg (32.0-48.0) H 03/12/21 21:54 ABG pCO2 58.1 mm Hg 03/31/21 12:50 POC ABG pO2 53.6 mmHg (83-108) L 03/12/21 21:54 ABG pO2 99.4 mm Hg (80.0-90.0) H 03/31/21 12:50 POC ABG HCO3 30.0 03/12/21 21:54 ABG O2 Saturation 97.3 % (95.0-99.0) 03/31/21 12:50 PT/INR, D-dimer PT 13.0 Sec. (12.2-14.9) 03/29/21 04:50 INR 0.88 (0.87-1.13) 03/29/21 04:50 D-Dimer 1359.12 ng/mlDDU (0-234) H 03/17/21 04:40 Abnormal lab findings: Abnormal Labs 03/08/21 03/08/21 03/08/21 20:24 20:24 20:24 WBC 22.6 H RBC 5.44 H Hgb 15.7 H Hct 49.2 H MCV MCHC RDW Plt Count Lymph % (Auto) [place] % (Auto) Lymph # (Auto) [place] # (Auto) Seg Neutrophils % Seg Neuts % (Manual) 83.0 H Lymphocytes % (Manual) 9.0 L Monocytes % (Manual) 8.0 H Nucleated RBC % Seg Neutrophils # Seg Neutrophils # Man 18.8 H Lymphocytes # (Manual) Monocytes # (Manual) 1.8 H PT 16.1 H INR 1.17 H D-Dimer > 17555 H ABG pH POC ABG pCO2 POC ABG pO2 ABG pO2 ABG HCO3 ABG O2 Saturation ABG Base Excess ABG Hemoglobin ABG Oxyhemoglobin ABG Sodium ABG Potassium ABG Glucose Oxyhemoglobin Sodium 136 L Potassium Chloride 93.9 L Carbon Dioxide BUN 29 H Creatinine Glucose 208 H POC Glucose Lactic Acid Calcium Phosphorus Magnesium Ferritin Lactate Dehydrogenase 624 H C-Reactive Protein 18.00 H NT-Pro-B Natriuret Pep 1053 H Total Protein Albumin Triglycerides Arterial Blood Glucose Ur Specific [place] Coronavirus (PCR) 03/08/21 03/08/21 03/09/21 20:24 20:24 04:10 WBC RBC Hgb Hct MCV MCHC RDW Plt Count Lymph % (Auto) [place] % (Auto) Lymph # (Auto) [place] # (Auto) Seg Neutrophils % Seg Neuts % (Manual) Lymphocytes % (Manual) Monocytes % (Manual) Nucleated RBC % Seg Neutrophils # Seg Neutrophils # Man Lymphocytes # (Manual) Monocytes # (Manual) PT INR D-Dimer ABG pH POC ABG pCO2 POC ABG pO2 ABG pO2 ABG HCO3 ABG O2 Saturation ABG Base Excess ABG Hemoglobin ABG Oxyhemoglobin ABG Sodium ABG Potassium ABG Glucose Oxyhemoglobin Sodium Potassium Chloride Carbon Dioxide BUN Creatinine Glucose POC Glucose Lactic Acid 2.10 H* Calcium Phosphorus Magnesium Ferritin 877.5 H Lactate Dehydrogenase C-Reactive Protein NT-Pro-B Natriuret Pep Total Protein Albumin Triglycerides Arterial Blood Glucose Ur Specific [place] 1.041 H Coronavirus (PCR) 03/09/21 03/09/21 03/09/21 07:46 08:00 13:01 WBC RBC Hgb Hct MCV MCHC RDW Plt Count Lymph % (Auto) [place] % (Auto) Lymph # (Auto) [place] # (Auto) Seg Neutrophils % Seg Neuts % (Manual) Lymphocytes % (Manual) Monocytes % (Manual) Nucleated RBC % Seg Neutrophils # Seg Neutrophils # Man Lymphocytes # (Manual) Monocytes # (Manual) PT INR D-Dimer ABG pH POC ABG pCO2 POC ABG pO2 ABG pO2 ABG HCO3 ABG O2 Saturation ABG Base Excess ABG Hemoglobin ABG Oxyhemoglobin ABG Sodium ABG Potassium ABG Glucose Oxyhemoglobin Sodium Potassium Chloride Carbon Dioxide BUN Creatinine Glucose POC Glucose 191 H 182 H Lactic Acid Calcium Phosphorus Magnesium Ferritin Lactate Dehydrogenase C-Reactive Protein NT-Pro-B Natriuret Pep Total Protein Albumin Triglycerides Arterial Blood Glucose Ur Specific [place] Coronavirus (PCR) Positive A 03/09/21 03/09/21 03/09/21 15:19 17:48 18:10 WBC RBC Hgb Hct MCV MCHC RDW Plt Count Lymph % (Auto) [place] % (Auto) Lymph # (Auto) [place] # (Auto) Seg Neutrophils % Seg Neuts % (Manual) Lymphocytes % (Manual) Monocytes % (Manual) Nucleated RBC % Seg Neutrophils # Seg Neutrophils # Man Lymphocytes # (Manual) Monocytes # (Manual) PT INR D-Dimer ABG pH POC ABG pCO2 POC ABG pO2 ABG pO2 47.3 L ABG HCO3 26.3 H ABG O2 Saturation 83.7 L ABG Base Excess ABG Hemoglobin ABG Oxyhemoglobin ABG Sodium ABG Potassium ABG Glucose Oxyhemoglobin 82.1 L Sodium Potassium Chloride Carbon Dioxide BUN 29 H Creatinine Glucose 214 H POC Glucose 194 H Lactic Acid Calcium Phosphorus Magnesium Ferritin Lactate Dehydrogenase C-Reactive Protein NT-Pro-B Natriuret Pep Total Protein Albumin 3.4 L Triglycerides Arterial Blood Glucose Ur Specific [place] Coronavirus (PCR) 03/09/21 03/10/21 03/10/21 20:40 04:29 04:29 WBC 20.6 H RBC 5.07 H Hgb Hct 46.2 H MCV MCHC RDW Plt Count Lymph % (Auto) [place] % (Auto) Lymph # (Auto) [place] # (Auto) Seg Neutrophils % Seg Neuts % (Manual) 94.0 H Lymphocytes % (Manual) 1.0 L Monocytes % (Manual) Nucleated RBC % 3.0 H Seg Neutrophils # Seg Neutrophils # Man 19.4 H Lymphocytes # (Manual) 0.2 L Monocytes # (Manual) 1.0 H PT INR D-Dimer ABG pH POC ABG pCO2 POC ABG pO2 ABG pO2 ABG HCO3 ABG O2 Saturation ABG Base Excess ABG Hemoglobin ABG Oxyhemoglobin ABG Sodium ABG Potassium ABG Glucose Oxyhemoglobin Sodium Potassium Chloride Carbon Dioxide BUN 29 H Creatinine Glucose 188 H POC Glucose 176 H Lactic Acid Calcium Phosphorus Magnesium Ferritin Lactate Dehydrogenase C-Reactive Protein NT-Pro-B Natriuret Pep Total Protein Albumin 3.3 L Triglycerides Arterial Blood Glucose Ur Specific [place] Coronavirus (PCR) 03/10/21 03/10/21 03/10/21 05:22 10:27 15:25 WBC RBC Hgb Hct MCV MCHC RDW Plt Count Lymph % (Auto) [place] % (Auto) Lymph # (Auto) [place] # (Auto) Seg Neutrophils % Seg Neuts % (Manual) Lymphocytes % (Manual) Monocytes % (Manual) Nucleated RBC % Seg Neutrophils # Seg Neutrophils # Man Lymphocytes # (Manual) Monocytes # (Manual) PT INR D-Dimer ABG pH 7.488 H 7.488 H POC ABG pCO2 POC ABG pO2 ABG pO2 47.7 L 50.5 L ABG HCO3 ABG O2 Saturation 86.2 L 87.9 L ABG Base Excess ABG Hemoglobin ABG Oxyhemoglobin ABG Sodium ABG Potassium ABG Glucose Oxyhemoglobin 84.6 L 86.2 L Sodium Potassium Chloride Carbon Dioxide BUN Creatinine Glucose POC Glucose 155 H Lactic Acid Calcium Phosphorus Magnesium Ferritin Lactate Dehydrogenase C-Reactive Protein NT-Pro-B Natriuret Pep Total Protein Albumin Triglycerides Arterial Blood Glucose Ur Specific [place] Coronavirus (PCR) 03/10/21 03/10/21 03/11/21 18:10 18:55 00:07 WBC RBC Hgb Hct MCV MCHC RDW Plt Count Lymph % (Auto) [place] % (Auto) Lymph # (Auto) [place] # (Auto) Seg Neutrophils % Seg Neuts % (Manual) Lymphocytes % (Manual) Monocytes % (Manual) Nucleated RBC % Seg Neutrophils # Seg Neutrophils # Man Lymphocytes # (Manual) Monocytes # (Manual) PT INR D-Dimer ABG pH 7.343 L POC ABG pCO2 POC ABG pO2 ABG pO2 60.4 L ABG HCO3 27.9 H ABG O2 Saturation 88.7 L ABG Base Excess ABG Hemoglobin ABG Oxyhemoglobin ABG Sodium ABG Potassium ABG Glucose Oxyhemoglobin 86.9 L Sodium Potassium Chloride Carbon Dioxide BUN Creatinine Glucose POC Glucose 187 H 139 H Lactic Acid Calcium Phosphorus Magnesium Ferritin Lactate Dehydrogenase C-Reactive Protein NT-Pro-B Natriuret Pep Total Protein Albumin Triglycerides Arterial Blood Glucose Ur Specific [place] Coronavirus (PCR) 03/11/21 03/11/21 03/11/21 02:09 04:28 08:06 WBC RBC Hgb Hct MCV MCHC RDW Plt Count Lymph % (Auto) [place] % (Auto) Lymph # (Auto) [place] # (Auto) Seg Neutrophils % Seg Neuts % (Manual) Lymphocytes % (Manual) Monocytes % (Manual) Nucleated RBC % Seg Neutrophils # Seg Neutrophils # Man Lymphocytes # (Manual) Monocytes # (Manual) PT INR D-Dimer ABG pH 7.277 L POC ABG pCO2 55.9 H POC ABG pO2 54.4 L ABG pO2 ABG HCO3 ABG O2 Saturation ABG Base Excess ABG Hemoglobin ABG Oxyhemoglobin 83.0 L ABG Sodium ABG Potassium 4.8 H ABG Glucose 180 H Oxyhemoglobin Sodium Potassium Chloride Carbon Dioxide BUN 38 H Creatinine Glucose 249 H POC Glucose 278 H Lactic Acid Calcium Phosphorus Magnesium Ferritin Lactate Dehydrogenase C-Reactive Protein NT-Pro-B Natriuret Pep Total Protein Albumin 3.2 L Triglycerides Arterial Blood Glucose 180 H Ur Specific [place] Coronavirus (PCR) 03/11/21 03/11/21 03/11/21 11:29 15:06 15:48 WBC RBC Hgb Hct MCV MCHC RDW Plt Count Lymph % (Auto) [place] % (Auto) Lymph # (Auto) [place] # (Auto) Seg Neutrophils % Seg Neuts % (Manual) Lymphocytes % (Manual) Monocytes % (Manual) Nucleated RBC % Seg Neutrophils # Seg Neutrophils # Man Lymphocytes # (Manual) Monocytes # (Manual) PT INR D-Dimer ABG pH 7.260 L POC ABG pCO2 POC ABG pO2 ABG pO2 53.5 L ABG HCO3 29.5 H ABG O2 Saturation 84.0 L ABG Base Excess ABG Hemoglobin ABG Oxyhemoglobin ABG Sodium ABG Potassium ABG Glucose Oxyhemoglobin 82.3 L Sodium Potassium Chloride Carbon Dioxide BUN Creatinine Glucose POC Glucose 288 H 295 H Lactic Acid Calcium Phosphorus Magnesium Ferritin Lactate Dehydrogenase C-Reactive Protein NT-Pro-B Natriuret Pep Total Protein Albumin Triglycerides Arterial Blood Glucose Ur Specific [place] Coronavirus (PCR) 03/12/21 03/12/21 03/12/21 00:01 05:24 08:03 WBC RBC Hgb Hct MCV MCHC RDW Plt Count Lymph % (Auto) [place] % (Auto) Lymph # (Auto) [place] # (Auto) Seg Neutrophils % Seg Neuts % (Manual) Lymphocytes % (Manual) Monocytes % (Manual) Nucleated RBC % Seg Neutrophils # Seg Neutrophils # Man Lymphocytes # (Manual) Monocytes # (Manual) PT INR D-Dimer ABG pH POC ABG pCO2 POC ABG pO2 ABG pO2 ABG HCO3 ABG O2 Saturation ABG Base Excess ABG Hemoglobin ABG Oxyhemoglobin ABG Sodium ABG Potassium ABG Glucose Oxyhemoglobin Sodium 135 L Potassium Chloride Carbon Dioxide BUN 48 H Creatinine Glucose 358 H POC Glucose 304 H 310 H Lactic Acid Calcium Phosphorus Magnesium Ferritin Lactate Dehydrogenase C-Reactive Protein NT-Pro-B Natriuret Pep Total Protein 6.0 L Albumin 2.9 L Triglycerides Arterial Blood Glucose Ur Specific [place] Coronavirus (PCR) 03/12/21 03/12/21 03/12/21 08:03 10:43 11:31 WBC 14.6 H RBC Hgb Hct MCV MCHC RDW Plt Count Lymph % (Auto) [place] % (Auto) Lymph # (Auto) [place] # (Auto) Seg Neutrophils % Seg Neuts % (Manual) Lymphocytes % (Manual) Monocytes % (Manual) Nucleated RBC % Seg Neutrophils # Seg Neutrophils # Man Lymphocytes # (Manual) Monocytes # (Manual) PT INR D-Dimer ABG pH 7.248 L POC ABG pCO2 POC ABG pO2 ABG pO2 73.7 L ABG HCO3 32.0 H ABG O2 Saturation 93.9 L ABG Base Excess ABG Hemoglobin ABG Oxyhemoglobin ABG Sodium ABG Potassium ABG Glucose Oxyhemoglobin 92.1 L Sodium Potassium Chloride Carbon Dioxide BUN Creatinine Glucose POC Glucose 359 H Lactic Acid Calcium Phosphorus Magnesium Ferritin Lactate Dehydrogenase C-Reactive Protein NT-Pro-B Natriuret Pep Total Protein Albumin Triglycerides Arterial Blood Glucose Ur Specific [place] Coronavirus (PCR) 03/12/21 03/12/21 03/13/21 17:20 21:54 00:02 WBC RBC Hgb Hct MCV MCHC RDW Plt Count Lymph % (Auto) [place] % (Auto) Lymph # (Auto) [place] # (Auto) Seg Neutrophils % Seg Neuts % (Manual) Lymphocytes % (Manual) Monocytes % (Manual) Nucleated RBC % Seg Neutrophils # Seg Neutrophils # Man Lymphocytes # (Manual) Monocytes # (Manual) PT INR D-Dimer ABG pH 7.238 L POC ABG pCO2 71.9 H POC ABG pO2 53.6 L ABG pO2 ABG HCO3 ABG O2 Saturation ABG Base Excess ABG Hemoglobin ABG Oxyhemoglobin 84.8 L ABG Sodium 134.2 L ABG Potassium 4.9 H ABG Glucose 306 H Oxyhemoglobin Sodium Potassium Chloride Carbon Dioxide BUN Creatinine Glucose POC Glucose 374 H 308 H Lactic Acid Calcium Phosphorus Magnesium Ferritin Lactate Dehydrogenase C-Reactive Protein NT-Pro-B Natriuret Pep Total Protein Albumin Triglycerides Arterial Blood Glucose 306 H Ur Specific [place] Coronavirus (PCR) 03/13/21 03/13/21 03/13/21 05:22 05:44 05:44 WBC 13.9 H RBC Hgb Hct MCV MCHC RDW Plt Count Lymph % (Auto) [place] % (Auto) Lymph # (Auto) [place] # (Auto) Seg Neutrophils % Seg Neuts % (Manual) Lymphocytes % (Manual) Monocytes % (Manual) Nucleated RBC % Seg Neutrophils # Seg Neutrophils # Man Lymphocytes # (Manual) Monocytes # (Manual) PT INR D-Dimer 3567.97 H ABG pH POC ABG pCO2 POC ABG pO2 ABG pO2 ABG HCO3 ABG O2 Saturation ABG Base Excess ABG Hemoglobin ABG Oxyhemoglobin ABG Sodium ABG Potassium ABG Glucose Oxyhemoglobin Sodium Potassium Chloride Carbon Dioxide BUN Creatinine Glucose POC Glucose 316 H Lactic Acid Calcium Phosphorus Magnesium Ferritin Lactate Dehydrogenase C-Reactive Protein NT-Pro-B Natriuret Pep Total Protein Albumin Triglycerides Arterial Blood Glucose Ur Specific [place] Coronavirus (PCR) 03/13/21 03/13/21 03/13/21 05:44 05:44 11:15 WBC RBC Hgb Hct MCV MCHC RDW Plt Count Lymph % (Auto) [place] % (Auto) Lymph # (Auto) [place] # (Auto) Seg Neutrophils % Seg Neuts % (Manual) Lymphocytes % (Manual) Monocytes % (Manual) Nucleated RBC % Seg Neutrophils # Seg Neutrophils # Man Lymphocytes # (Manual) Monocytes # (Manual) PT INR D-Dimer ABG pH 7.310 L POC ABG pCO2 POC ABG pO2 ABG pO2 52.3 L ABG HCO3 34.1 H ABG O2 Saturation 86.8 L ABG Base Excess 5.5 H ABG Hemoglobin 13.8 L ABG Oxyhemoglobin ABG Sodium ABG Potassium ABG Glucose Oxyhemoglobin 85.1 L Sodium Potassium Chloride Carbon Dioxide BUN Creatinine Glucose POC Glucose Lactic Acid Calcium Phosphorus Magnesium Ferritin 858.7 H Lactate Dehydrogenase 348 H C-Reactive Protein 2.80 H NT-Pro-B Natriuret Pep Total Protein Albumin Triglycerides Arterial Blood Glucose Ur Specific [place] Coronavirus (PCR) 03/13/21 03/13/21 03/13/21 11:21 15:47 19:23 WBC RBC Hgb Hct MCV MCHC RDW Plt Count Lymph % (Auto) [place] % (Auto) Lymph # (Auto) [place] # (Auto) Seg Neutrophils % Seg Neuts % (Manual) Lymphocytes % (Manual) Monocytes % (Manual) Nucleated RBC % Seg Neutrophils # Seg Neutrophils # Man Lymphocytes # (Manual) Monocytes # (Manual) PT INR D-Dimer ABG pH POC ABG pCO2 POC ABG pO2 ABG pO2 ABG HCO3 ABG O2 Saturation ABG Base Excess ABG Hemoglobin ABG Oxyhemoglobin ABG Sodium ABG Potassium ABG Glucose Oxyhemoglobin Sodium 136 L Potassium 5.9 H Chloride Carbon Dioxide BUN 50 H Creatinine Glucose 397 H POC Glucose 322 H 317 H Lactic Acid Calcium Phosphorus Magnesium Ferritin Lactate Dehydrogenase C-Reactive Protein NT-Pro-B Natriuret Pep Total Protein Albumin Triglycerides Arterial Blood Glucose Ur Specific [place] Coronavirus (PCR) 03/13/21 03/14/21 03/14/21 23:46 05:32 05:50 WBC 11.6 H RBC Hgb Hct MCV MCHC RDW Plt Count Lymph % (Auto) [place] % (Auto) Lymph # (Auto) [place] # (Auto) Seg Neutrophils % Seg Neuts % (Manual) Lymphocytes % (Manual) Monocytes % (Manual) Nucleated RBC % Seg Neutrophils # Seg Neutrophils # Man Lymphocytes # (Manual) Monocytes # (Manual) PT INR D-Dimer ABG pH POC ABG pCO2 POC ABG pO2 ABG pO2 ABG HCO3 ABG O2 Saturation ABG Base Excess ABG Hemoglobin ABG Oxyhemoglobin ABG Sodium ABG Potassium ABG Glucose Oxyhemoglobin Sodium Potassium Chloride Carbon Dioxide BUN Creatinine Glucose POC Glucose 332 H 316 H Lactic Acid Calcium Phosphorus Magnesium Ferritin Lactate Dehydrogenase C-Reactive Protein NT-Pro-B Natriuret Pep Total Protein Albumin Triglycerides Arterial Blood Glucose Ur Specific [place] Coronavirus (PCR) 03/14/21 03/14/21 03/14/21 05:50 11:33 16:53 WBC RBC Hgb Hct MCV MCHC RDW Plt Count Lymph % (Auto) [place] % (Auto) Lymph # (Auto) [place] # (Auto) Seg Neutrophils % Seg Neuts % (Manual) Lymphocytes % (Manual) Monocytes % (Manual) Nucleated RBC % Seg Neutrophils # Seg Neutrophils # Man Lymphocytes # (Manual) Monocytes # (Manual) PT INR D-Dimer ABG pH POC ABG pCO2 POC ABG pO2 ABG pO2 ABG HCO3 ABG O2 Saturation ABG Base Excess ABG Hemoglobin ABG Oxyhemoglobin ABG Sodium ABG Potassium ABG Glucose Oxyhemoglobin Sodium Potassium 5.9 H Chloride Carbon Dioxide 31 H BUN 48 H Creatinine Glucose 380 H POC Glucose 315 H 235 H Lactic Acid Calcium Phosphorus Magnesium 3.40 H Ferritin Lactate Dehydrogenase C-Reactive Protein NT-Pro-B Natriuret Pep Total Protein Albumin Triglycerides Arterial Blood Glucose Ur Specific [place] Coronavirus (PCR) 03/14/21 03/14/21 03/15/21 18:34 23:27 01:22 WBC RBC Hgb Hct 46.3 H MCV MCHC RDW Plt Count Lymph % (Auto) [place] % (Auto) Lymph # (Auto) [place] # (Auto) Seg Neutrophils % Seg Neuts % (Manual) Lymphocytes % (Manual) Monocytes % (Manual) Nucleated RBC % Seg Neutrophils # Seg Neutrophils # Man Lymphocytes # (Manual) Monocytes # (Manual) PT INR D-Dimer ABG pH POC ABG pCO2 POC ABG pO2 ABG pO2 ABG HCO3 ABG O2 Saturation ABG Base Excess ABG Hemoglobin ABG Oxyhemoglobin ABG Sodium ABG Potassium ABG Glucose Oxyhemoglobin Sodium 146 H Potassium Chloride Carbon Dioxide 34 H BUN 49 H Creatinine Glucose 285 H POC Glucose 203 H Lactic Acid Calcium Phosphorus Magnesium Ferritin Lactate Dehydrogenase C-Reactive Protein NT-Pro-B Natriuret Pep Total Protein Albumin Triglycerides Arterial Blood Glucose Ur Specific [place] Coronavirus (PCR) 03/15/21 03/15/21 03/15/21 04:00 06:06 06:06 WBC RBC Hgb Hct MCV MCHC RDW Plt Count Lymph % (Auto) [place] % (Auto) Lymph # (Auto) [place] # (Auto) Seg Neutrophils % Seg Neuts % (Manual) Lymphocytes % (Manual) Monocytes % (Manual) Nucleated RBC % Seg Neutrophils # Seg Neutrophils # Man Lymphocytes # (Manual) Monocytes # (Manual) PT INR D-Dimer 1781.79 H ABG pH POC ABG pCO2 POC ABG pO2 ABG pO2 ABG HCO3 ABG O2 Saturation ABG Base Excess ABG Hemoglobin ABG Oxyhemoglobin ABG Sodium ABG Potassium ABG Glucose Oxyhemoglobin Sodium 148 H Potassium 5.7 H D Chloride 108.0 H Carbon Dioxide 31 H BUN 46 H Creatinine Glucose 139 H POC Glucose Lactic Acid Calcium Phosphorus 4.80 H D Magnesium 3.00 H Ferritin 976.4 H Lactate Dehydrogenase 630 H C-Reactive Protein NT-Pro-B Natriuret Pep Total Protein Albumin Triglycerides Arterial Blood Glucose Ur Specific [place] Coronavirus (PCR) 03/15/21 03/15/21 03/15/21 11:56 14:05 17:09 WBC RBC Hgb Hct MCV MCHC RDW Plt Count Lymph % (Auto) [place] % (Auto) Lymph # (Auto) [place] # (Auto) Seg Neutrophils % Seg Neuts % (Manual) Lymphocytes % (Manual) Monocytes % (Manual) Nucleated RBC % Seg Neutrophils # Seg Neutrophils # Man Lymphocytes # (Manual) Monocytes # (Manual) PT INR D-Dimer ABG pH POC ABG pCO2 POC ABG pO2 ABG pO2 52.1 L ABG HCO3 36.6 H ABG O2 Saturation 87.6 L ABG Base Excess 9.5 H ABG Hemoglobin ABG Oxyhemoglobin ABG Sodium ABG Potassium ABG Glucose Oxyhemoglobin 85.7 L Sodium Potassium Chloride Carbon Dioxide BUN Creatinine Glucose POC Glucose 219 H 263 H Lactic Acid Calcium Phosphorus Magnesium Ferritin Lactate Dehydrogenase C-Reactive Protein NT-Pro-B Natriuret Pep Total Protein Albumin Triglycerides Arterial Blood Glucose Ur Specific [place] Coronavirus (PCR) 03/16/21 03/16/21 03/16/21 00:32 04:11 04:11 WBC 11.9 H RBC Hgb Hct MCV MCHC 30 L RDW Plt Count Lymph % (Auto) [place] % (Auto) Lymph # (Auto) [place] # (Auto) Seg Neutrophils % Seg Neuts % (Manual) Lymphocytes % (Manual) Monocytes % (Manual) Nucleated RBC % Seg Neutrophils # Seg Neutrophils # Man Lymphocytes # (Manual) Monocytes # (Manual) PT INR D-Dimer ABG pH POC ABG pCO2 POC ABG pO2 ABG pO2 ABG HCO3 ABG O2 Saturation ABG Base Excess ABG Hemoglobin ABG Oxyhemoglobin ABG Sodium ABG Potassium ABG Glucose Oxyhemoglobin Sodium 151 H Potassium Chloride Carbon Dioxide 35 H BUN 48 H Creatinine Glucose 152 H POC Glucose 165 H Lactic Acid Calcium Phosphorus Magnesium Ferritin Lactate Dehydrogenase C-Reactive Protein NT-Pro-B Natriuret Pep Total Protein Albumin Triglycerides Arterial Blood Glucose Ur Specific [place] Coronavirus (PCR) 03/16/21 03/16/21 03/16/21 04:11 05:26 11:35 WBC RBC Hgb Hct MCV MCHC RDW Plt Count Lymph % (Auto) [place] % (Auto) Lymph # (Auto) [place] # (Auto) Seg Neutrophils % Seg Neuts % (Manual) Lymphocytes % (Manual) Monocytes % (Manual) Nucleated RBC % Seg Neutrophils # Seg Neutrophils # Man Lymphocytes # (Manual) Monocytes # (Manual) PT INR D-Dimer ABG pH POC ABG pCO2 POC ABG pO2 ABG pO2 ABG HCO3 ABG O2 Saturation ABG Base Excess ABG Hemoglobin ABG Oxyhemoglobin ABG Sodium ABG Potassium ABG Glucose Oxyhemoglobin Sodium Potassium Chloride Carbon Dioxide BUN Creatinine Glucose POC Glucose 162 H 187 H Lactic Acid Calcium Phosphorus Magnesium Ferritin Lactate Dehydrogenase C-Reactive Protein NT-Pro-B Natriuret Pep Total Protein Albumin Triglycerides 267 H Arterial Blood Glucose Ur Specific [place] Coronavirus (PCR) 03/16/21 03/16/21 03/16/21 17:29 22:25 23:22 WBC RBC Hgb Hct MCV MCHC RDW Plt Count Lymph % (Auto) [place] % (Auto) Lymph # (Auto) [place] # (Auto) Seg Neutrophils % Seg Neuts % (Manual) Lymphocytes % (Manual) Monocytes % (Manual) Nucleated RBC % Seg Neutrophils # Seg Neutrophils # Man Lymphocytes # (Manual) Monocytes # (Manual) PT INR D-Dimer ABG pH POC ABG pCO2 POC ABG pO2 ABG pO2 ABG HCO3 ABG O2 Saturation ABG Base Excess ABG Hemoglobin ABG Oxyhemoglobin ABG Sodium ABG Potassium ABG Glucose Oxyhemoglobin Sodium Potassium Chloride Carbon Dioxide BUN Creatinine Glucose POC Glucose 237 H 165 H 189 H Lactic Acid Calcium Phosphorus Magnesium Ferritin Lactate Dehydrogenase C-Reactive Protein NT-Pro-B Natriuret Pep Total Protein Albumin Triglycerides Arterial Blood Glucose Ur Specific [place] Coronavirus (PCR) 03/17/21 03/17/21 03/17/21 04:40 04:40 04:40 WBC 14.1 H RBC Hgb Hct MCV MCHC RDW 15.3 H Plt Count Lymph % (Auto) 12.6 L [place] % (Auto) 11.3 H Lymph # (Auto) [place] # (Auto) 1.6 H Seg Neutrophils % 74.9 H Seg Neuts % (Manual) Lymphocytes % (Manual) Monocytes % (Manual) Nucleated RBC % Seg Neutrophils # 10.5 H Seg Neutrophils # Man Lymphocytes # (Manual) Monocytes # (Manual) PT INR D-Dimer 1359.12 H ABG pH POC ABG pCO2 POC ABG pO2 ABG pO2 ABG HCO3 ABG O2 Saturation ABG Base Excess ABG Hemoglobin ABG Oxyhemoglobin ABG Sodium ABG Potassium ABG Glucose Oxyhemoglobin Sodium 148 H Potassium Chloride 107.5 H Carbon Dioxide 33 H BUN 42 H Creatinine Glucose 183 H POC Glucose Lactic Acid Calcium Phosphorus Magnesium 2.70 H Ferritin Lactate Dehydrogenase C-Reactive Protein NT-Pro-B Natriuret Pep Total Protein Albumin Triglycerides Arterial Blood Glucose Ur Specific [place] Coronavirus (PCR) 03/17/21 03/17/21 03/17/21 05:53 11:05 11:51 WBC RBC Hgb Hct MCV MCHC RDW Plt Count Lymph % (Auto) [place] % (Auto) Lymph # (Auto) [place] # (Auto) Seg Neutrophils % Seg Neuts % (Manual) Lymphocytes % (Manual) Monocytes % (Manual) Nucleated RBC % Seg Neutrophils # Seg Neutrophils # Man Lymphocytes # (Manual) Monocytes # (Manual) PT INR D-Dimer ABG pH POC ABG pCO2 POC ABG pO2 ABG pO2 ABG HCO3 35.7 H ABG O2 Saturation ABG Base Excess 8.7 H ABG Hemoglobin ABG Oxyhemoglobin ABG Sodium ABG Potassium ABG Glucose Oxyhemoglobin 94.2 L Sodium Potassium Chloride Carbon Dioxide BUN Creatinine Glucose POC Glucose 176 H 197 H Lactic Acid Calcium Phosphorus Magnesium Ferritin Lactate Dehydrogenase C-Reactive Protein NT-Pro-B Natriuret Pep Total Protein Albumin Triglycerides Arterial Blood Glucose Ur Specific [place] Coronavirus (PCR) 03/17/21 03/17/21 03/17/21 16:54 21:10 23:33 WBC RBC Hgb Hct MCV MCHC RDW Plt Count Lymph % (Auto) [place] % (Auto) Lymph # (Auto) [place] # (Auto) Seg Neutrophils % Seg Neuts % (Manual) Lymphocytes % (Manual) Monocytes % (Manual) Nucleated RBC % Seg Neutrophils # Seg Neutrophils # Man Lymphocytes # (Manual) Monocytes # (Manual) PT INR D-Dimer ABG pH POC ABG pCO2 POC ABG pO2 ABG pO2 ABG HCO3 ABG O2 Saturation ABG Base Excess ABG Hemoglobin ABG Oxyhemoglobin ABG Sodium ABG Potassium ABG Glucose Oxyhemoglobin Sodium Potassium Chloride Carbon Dioxide BUN Creatinine Glucose POC Glucose 135 H 160 H 138 H Lactic Acid Calcium Phosphorus Magnesium Ferritin Lactate Dehydrogenase C-Reactive Protein NT-Pro-B Natriuret Pep Total Protein Albumin Triglycerides Arterial Blood Glucose Ur Specific [place] Coronavirus (PCR) 03/18/21 03/18/21 03/18/21 04:18 04:50 05:43 WBC RBC Hgb Hct MCV MCHC RDW Plt Count Lymph % (Auto) [place] % (Auto) Lymph # (Auto) [place] # (Auto) Seg Neutrophils % Seg Neuts % (Manual) Lymphocytes % (Manual) Monocytes % (Manual) Nucleated RBC % Seg Neutrophils # Seg Neutrophils # Man Lymphocytes # (Manual) Monocytes # (Manual) PT INR D-Dimer ABG pH POC ABG pCO2 POC ABG pO2 ABG pO2 59.8 L ABG HCO3 36.5 H ABG O2 Saturation 90.7 L ABG Base Excess 9.4 H ABG Hemoglobin 12.0 L ABG Oxyhemoglobin ABG Sodium ABG Potassium ABG Glucose Oxyhemoglobin 88.9 L Sodium Potassium Chloride 107.2 H Carbon Dioxide 34 H BUN 38 H Creatinine 0.7 L Glucose 136 H POC Glucose 128 H Lactic Acid Calcium Phosphorus Magnesium Ferritin Lactate Dehydrogenase C-Reactive Protein NT-Pro-B Natriuret Pep Total Protein Albumin Triglycerides Arterial Blood Glucose Ur Specific [place] Coronavirus (PCR) 03/18/21 03/18/21 03/18/21 11:20 17:35 23:35 WBC RBC Hgb Hct MCV MCHC RDW Plt Count Lymph % (Auto) [place] % (Auto) Lymph # (Auto) [place] # (Auto) Seg Neutrophils % Seg Neuts % (Manual) Lymphocytes % (Manual) Monocytes % (Manual) Nucleated RBC % Seg Neutrophils # Seg Neutrophils # Man Lymphocytes # (Manual) Monocytes # (Manual) PT INR D-Dimer ABG pH POC ABG pCO2 POC ABG pO2 ABG pO2 70.7 L ABG HCO3 33.6 H ABG O2 Saturation ABG Base Excess 8.0 H ABG Hemoglobin ABG Oxyhemoglobin ABG Sodium ABG Potassium ABG Glucose Oxyhemoglobin 93.7 L Sodium Potassium Chloride Carbon Dioxide BUN Creatinine Glucose POC Glucose 189 H 144 H Lactic Acid Calcium Phosphorus Magnesium Ferritin Lactate Dehydrogenase C-Reactive Protein NT-Pro-B Natriuret Pep Total Protein Albumin Triglycerides Arterial Blood Glucose Ur Specific [place] Coronavirus (PCR) 03/19/21 03/19/21 03/19/21 02:35 04:20 04:20 WBC 14.0 H RBC Hgb Hct MCV MCHC RDW Plt Count Lymph % (Auto) [place] % (Auto) Lymph # (Auto) [place] # (Auto) Seg Neutrophils % Seg Neuts % (Manual) Lymphocytes % (Manual) Monocytes % (Manual) Nucleated RBC % Seg Neutrophils # Seg Neutrophils # Man Lymphocytes # (Manual) Monocytes # (Manual) PT INR D-Dimer ABG pH POC ABG pCO2 POC ABG pO2 ABG pO2 ABG HCO3 32.0 H ABG O2 Saturation ABG Base Excess 5.2 H ABG Hemoglobin 13.6 L ABG Oxyhemoglobin ABG Sodium ABG Potassium ABG Glucose Oxyhemoglobin 94.6 L Sodium 146 H Potassium Chloride 109.3 H Carbon Dioxide BUN 36 H Creatinine Glucose 203 H POC Glucose Lactic Acid Calcium Phosphorus Magnesium Ferritin Lactate Dehydrogenase C-Reactive Protein NT-Pro-B Natriuret Pep Total Protein Albumin Triglycerides 254 H Arterial Blood Glucose Ur Specific [place] Coronavirus (PCR) 03/19/21 03/19/21 03/19/21 05:45 11:36 23:51 WBC RBC Hgb Hct MCV MCHC RDW Plt Count Lymph % (Auto) [place] % (Auto) Lymph # (Auto) [place] # (Auto) Seg Neutrophils % Seg Neuts % (Manual) Lymphocytes % (Manual) Monocytes % (Manual) Nucleated RBC % Seg Neutrophils # Seg Neutrophils # Man Lymphocytes # (Manual) Monocytes # (Manual) PT INR D-Dimer ABG pH POC ABG pCO2 POC ABG pO2 ABG pO2 ABG HCO3 ABG O2 Saturation ABG Base Excess ABG Hemoglobin ABG Oxyhemoglobin ABG Sodium ABG Potassium ABG Glucose Oxyhemoglobin Sodium Potassium Chloride Carbon Dioxide BUN Creatinine Glucose POC Glucose 164 H 172 H 140 H Lactic Acid Calcium Phosphorus Magnesium Ferritin Lactate Dehydrogenase C-Reactive Protein NT-Pro-B Natriuret Pep Total Protein Albumin Triglycerides Arterial Blood Glucose Ur Specific [place] Coronavirus (PCR) 03/20/21 03/20/21 03/20/21 03:29 04:45 04:45 WBC RBC Hgb Hct MCV 95 H MCHC RDW 15.7 H Plt Count Lymph % (Auto) [place] % (Auto) Lymph # (Auto) [place] # (Auto) Seg Neutrophils % Seg Neuts % (Manual) Lymphocytes % (Manual) Monocytes % (Manual) Nucleated RBC % Seg Neutrophils # Seg Neutrophils # Man Lymphocytes # (Manual) Monocytes # (Manual) PT INR D-Dimer ABG pH 7.349 L POC ABG pCO2 POC ABG pO2 ABG pO2 ABG HCO3 33.7 H ABG O2 Saturation ABG Base Excess 6.4 H ABG Hemoglobin 11.8 L ABG Oxyhemoglobin ABG Sodium ABG Potassium ABG Glucose Oxyhemoglobin 93.9 L Sodium 146 H Potassium 5.5 H Chloride 111.1 H Carbon Dioxide BUN 34 H Creatinine 0.7 L Glucose 145 H POC Glucose Lactic Acid Calcium Phosphorus Magnesium 2.50 H Ferritin Lactate Dehydrogenase C-Reactive Protein NT-Pro-B Natriuret Pep Total Protein Albumin Triglycerides Arterial Blood Glucose Ur Specific [place] Coronavirus (PCR) 03/20/21 03/20/21 03/20/21 05:41 09:08 11:54 WBC RBC Hgb Hct MCV MCHC RDW Plt Count Lymph % (Auto) [place] % (Auto) Lymph # (Auto) [place] # (Auto) Seg Neutrophils % Seg Neuts % (Manual) Lymphocytes % (Manual) Monocytes % (Manual) Nucleated RBC % Seg Neutrophils # Seg Neutrophils # Man Lymphocytes # (Manual) Monocytes # (Manual) PT INR D-Dimer ABG pH POC ABG pCO2 POC ABG pO2 ABG pO2 ABG HCO3 ABG O2 Saturation ABG Base Excess ABG Hemoglobin ABG Oxyhemoglobin ABG Sodium ABG Potassium ABG Glucose Oxyhemoglobin Sodium Potassium Chloride Carbon Dioxide BUN Creatinine Glucose POC Glucose 108 H 132 H 162 H Lactic Acid Calcium Phosphorus Magnesium Ferritin Lactate Dehydrogenase C-Reactive Protein NT-Pro-B Natriuret Pep Total Protein Albumin Triglycerides Arterial Blood Glucose Ur Specific [place] Coronavirus (PCR) 03/20/21 03/21/21 03/21/21 17:28 00:31 04:44 WBC RBC Hgb Hct MCV MCHC RDW Plt Count Lymph % (Auto) [place] % (Auto) Lymph # (Auto) [place] # (Auto) Seg Neutrophils % Seg Neuts % (Manual) Lymphocytes % (Manual) Monocytes % (Manual) Nucleated RBC % Seg Neutrophils # Seg Neutrophils # Man Lymphocytes # (Manual) Monocytes # (Manual) PT INR D-Dimer ABG pH POC ABG pCO2 POC ABG pO2 ABG pO2 ABG HCO3 ABG O2 Saturation ABG Base Excess ABG Hemoglobin ABG Oxyhemoglobin ABG Sodium ABG Potassium ABG Glucose Oxyhemoglobin Sodium Potassium Chloride 108.3 H Carbon Dioxide BUN 30 H Creatinine 0.7 L Glucose POC Glucose 160 H 122 H Lactic Acid Calcium Phosphorus Magnesium Ferritin Lactate Dehydrogenase C-Reactive Protein NT-Pro-B Natriuret Pep Total Protein Albumin Triglycerides Arterial Blood Glucose Ur Specific [place] Coronavirus (PCR) 03/21/21 03/21/21 03/21/21 09:18 10:09 13:20 WBC RBC Hgb Hct MCV MCHC RDW Plt Count Lymph % (Auto) [place] % (Auto) Lymph # (Auto) [place] # (Auto) Seg Neutrophils % Seg Neuts % (Manual) Lymphocytes % (Manual) Monocytes % (Manual) Nucleated RBC % Seg Neutrophils # Seg Neutrophils # Man Lymphocytes # (Manual) Monocytes # (Manual) PT INR D-Dimer ABG pH POC ABG pCO2 POC ABG pO2 ABG pO2 60.7 L ABG HCO3 30.6 H ABG O2 Saturation 93.6 L ABG Base Excess 5.3 H ABG Hemoglobin ABG Oxyhemoglobin ABG Sodium ABG Potassium ABG Glucose Oxyhemoglobin 91.7 L Sodium Potassium Chloride Carbon Dioxide BUN Creatinine Glucose POC Glucose 169 H 122 H Lactic Acid Calcium Phosphorus Magnesium Ferritin Lactate Dehydrogenase C-Reactive Protein NT-Pro-B Natriuret Pep Total Protein Albumin Triglycerides Arterial Blood Glucose Ur Specific [place] Coronavirus (PCR) 03/21/21 03/21/21 03/21/21 17:25 22:41 23:52 WBC RBC Hgb Hct MCV MCHC RDW Plt Count Lymph % (Auto) [place] % (Auto) Lymph # (Auto) [place] # (Auto) Seg Neutrophils % Seg Neuts % (Manual) Lymphocytes % (Manual) Monocytes % (Manual) Nucleated RBC % Seg Neutrophils # Seg Neutrophils # Man Lymphocytes # (Manual) Monocytes # (Manual) PT INR D-Dimer ABG pH POC ABG pCO2 POC ABG pO2 ABG pO2 ABG HCO3 ABG O2 Saturation ABG Base Excess ABG Hemoglobin ABG Oxyhemoglobin ABG Sodium ABG Potassium ABG Glucose Oxyhemoglobin Sodium Potassium Chloride Carbon Dioxide BUN Creatinine Glucose POC Glucose 121 H 139 H 140 H Lactic Acid Calcium Phosphorus Magnesium Ferritin Lactate Dehydrogenase C-Reactive Protein NT-Pro-B Natriuret Pep Total Protein Albumin Triglycerides Arterial Blood Glucose Ur Specific [place] Coronavirus (PCR) 03/22/21 03/22/21 03/22/21 05:58 07:26 07:26 WBC RBC Hgb Hct MCV MCHC 31 L RDW 16.1 H Plt Count Lymph % (Auto) [place] % (Auto) Lymph # (Auto) [place] # (Auto) Seg Neutrophils % Seg Neuts % (Manual) Lymphocytes % (Manual) Monocytes % (Manual) Nucleated RBC % Seg Neutrophils # Seg Neutrophils # Man Lymphocytes # (Manual) Monocytes # (Manual) PT INR D-Dimer ABG pH POC ABG pCO2 POC ABG pO2 ABG pO2 ABG HCO3 ABG O2 Saturation ABG Base Excess ABG Hemoglobin ABG Oxyhemoglobin ABG Sodium ABG Potassium ABG Glucose Oxyhemoglobin Sodium Potassium Chloride 108.5 H Carbon Dioxide BUN 44 H Creatinine Glucose 120 H POC Glucose 131 H Lactic Acid Calcium Phosphorus 5.80 H Magnesium 2.80 H Ferritin Lactate Dehydrogenase C-Reactive Protein NT-Pro-B Natriuret Pep Total Protein Albumin Triglycerides 305 H Arterial Blood Glucose Ur Specific [place] Coronavirus (PCR) 03/22/21 03/22/21 03/22/21 09:38 11:15 16:01 WBC RBC Hgb Hct MCV MCHC RDW Plt Count Lymph % (Auto) [place] % (Auto) Lymph # (Auto) [place] # (Auto) Seg Neutrophils % Seg Neuts % (Manual) Lymphocytes % (Manual) Monocytes % (Manual) Nucleated RBC % Seg Neutrophils # Seg Neutrophils # Man Lymphocytes # (Manual) Monocytes # (Manual) PT INR D-Dimer ABG pH POC ABG pCO2 POC ABG pO2 ABG pO2 70.0 L ABG HCO3 30.0 H ABG O2 Saturation 94.6 L ABG Base Excess 3.6 H ABG Hemoglobin 13.5 L ABG Oxyhemoglobin ABG Sodium ABG Potassium ABG Glucose Oxyhemoglobin 92.5 L Sodium Potassium Chloride Carbon Dioxide BUN Creatinine Glucose POC Glucose 186 H 148 H Lactic Acid Calcium Phosphorus Magnesium Ferritin Lactate Dehydrogenase C-Reactive Protein NT-Pro-B Natriuret Pep Total Protein Albumin Triglycerides Arterial Blood Glucose Ur Specific [place] Coronavirus (PCR) 03/22/21 03/22/21 03/23/21 21:13 23:48 07:04 WBC 11.7 H RBC Hgb Hct MCV 95 H MCHC RDW 16.1 H Plt Count Lymph % (Auto) [place] % (Auto) Lymph # (Auto) [place] # (Auto) Seg Neutrophils % Seg Neuts % (Manual) Lymphocytes % (Manual) Monocytes % (Manual) Nucleated RBC % Seg Neutrophils # Seg Neutrophils # Man Lymphocytes # (Manual) Monocytes # (Manual) PT INR D-Dimer ABG pH POC ABG pCO2 POC ABG pO2 ABG pO2 ABG HCO3 ABG O2 Saturation ABG Base Excess ABG Hemoglobin ABG Oxyhemoglobin ABG Sodium ABG Potassium ABG Glucose Oxyhemoglobin Sodium Potassium Chloride Carbon Dioxide BUN Creatinine Glucose POC Glucose 121 H 114 H Lactic Acid Calcium Phosphorus Magnesium Ferritin Lactate Dehydrogenase C-Reactive Protein NT-Pro-B Natriuret Pep Total Protein Albumin Triglycerides Arterial Blood Glucose Ur Specific [place] Coronavirus (PCR) 03/23/21 03/23/21 03/23/21 07:04 08:35 11:19 WBC RBC Hgb Hct MCV MCHC RDW Plt Count Lymph % (Auto) [place] % (Auto) Lymph # (Auto) [place] # (Auto) Seg Neutrophils % Seg Neuts % (Manual) Lymphocytes % (Manual) Monocytes % (Manual) Nucleated RBC % Seg Neutrophils # Seg Neutrophils # Man Lymphocytes # (Manual) Monocytes # (Manual) PT INR D-Dimer ABG pH 7.345 L POC ABG pCO2 POC ABG pO2 ABG pO2 167.9 H ABG HCO3 32.2 H ABG O2 Saturation ABG Base Excess 4.8 H ABG Hemoglobin 13.4 L ABG Oxyhemoglobin ABG Sodium ABG Potassium ABG Glucose Oxyhemoglobin Sodium 148 H Potassium Chloride 111.3 H Carbon Dioxide 31 H BUN 31 H Creatinine Glucose 131 H POC Glucose 165 H Lactic Acid Calcium Phosphorus Magnesium 2.50 H Ferritin Lactate Dehydrogenase C-Reactive Protein NT-Pro-B Natriuret Pep Total Protein Albumin Triglycerides Arterial Blood Glucose Ur Specific [place] Coronavirus (PCR) 03/23/21 03/23/21 03/24/21 16:48 20:52 00:07 WBC RBC Hgb Hct MCV MCHC RDW Plt Count Lymph % (Auto) [place] % (Auto) Lymph # (Auto) [place] # (Auto) Seg Neutrophils % Seg Neuts % (Manual) Lymphocytes % (Manual) Monocytes % (Manual) Nucleated RBC % Seg Neutrophils # Seg Neutrophils # Man Lymphocytes # (Manual) Monocytes # (Manual) PT INR D-Dimer ABG pH POC ABG pCO2 POC ABG pO2 ABG pO2 ABG HCO3 ABG O2 Saturation ABG Base Excess ABG Hemoglobin ABG Oxyhemoglobin ABG Sodium ABG Potassium ABG Glucose Oxyhemoglobin Sodium Potassium Chloride Carbon Dioxide BUN Creatinine Glucose POC Glucose 160 H 127 H 147 H Lactic Acid Calcium Phosphorus Magnesium Ferritin Lactate Dehydrogenase C-Reactive Protein NT-Pro-B Natriuret Pep Total Protein Albumin Triglycerides Arterial Blood Glucose Ur Specific [place] Coronavirus (PCR) 03/24/21 03/24/21 03/24/21 04:34 04:34 05:20 WBC 13.3 H RBC Hgb Hct MCV MCHC 31 L RDW 16.1 H Plt Count Lymph % (Auto) [place] % (Auto) Lymph # (Auto) [place] # (Auto) Seg Neutrophils % Seg Neuts % (Manual) Lymphocytes % (Manual) Monocytes % (Manual) Nucleated RBC % Seg Neutrophils # Seg Neutrophils # Man Lymphocytes # (Manual) Monocytes # (Manual) PT INR D-Dimer ABG pH POC ABG pCO2 POC ABG pO2 ABG pO2 ABG HCO3 ABG O2 Saturation ABG Base Excess ABG Hemoglobin ABG Oxyhemoglobin ABG Sodium ABG Potassium ABG Glucose Oxyhemoglobin Sodium Potassium 5.2 H Chloride Carbon Dioxide BUN 28 H Creatinine 0.7 L Glucose 152 H POC Glucose 141 H Lactic Acid Calcium Phosphorus Magnesium Ferritin Lactate Dehydrogenase C-Reactive Protein NT-Pro-B Natriuret Pep Total Protein Albumin Triglycerides Arterial Blood Glucose Ur Specific [place] Coronavirus (PCR) 03/24/21 03/24/21 03/24/21 09:40 11:38 16:45 WBC RBC Hgb Hct MCV MCHC RDW Plt Count Lymph % (Auto) [place] % (Auto) Lymph # (Auto) [place] # (Auto) Seg Neutrophils % Seg Neuts % (Manual) Lymphocytes % (Manual) Monocytes % (Manual) Nucleated RBC % Seg Neutrophils # Seg Neutrophils # Man Lymphocytes # (Manual) Monocytes # (Manual) PT INR D-Dimer ABG pH POC ABG pCO2 POC ABG pO2 ABG pO2 ABG HCO3 ABG O2 Saturation ABG Base Excess ABG Hemoglobin ABG Oxyhemoglobin ABG Sodium ABG Potassium ABG Glucose Oxyhemoglobin Sodium Potassium Chloride Carbon Dioxide BUN Creatinine Glucose POC Glucose 126 H 136 H 118 H Lactic Acid Calcium Phosphorus Magnesium Ferritin Lactate Dehydrogenase C-Reactive Protein NT-Pro-B Natriuret Pep Total Protein Albumin Triglycerides Arterial Blood Glucose Ur Specific [place] Coronavirus (PCR) 03/24/21 03/24/21 03/25/21 21:03 23:49 04:32 WBC RBC Hgb Hct MCV MCHC RDW 16.1 H Plt Count 121 L Lymph % (Auto) [place] % (Auto) Lymph # (Auto) [place] # (Auto) Seg Neutrophils % Seg Neuts % (Manual) Lymphocytes % (Manual) Monocytes % (Manual) Nucleated RBC % Seg Neutrophils # Seg Neutrophils # Man Lymphocytes # (Manual) Monocytes # (Manual) PT INR D-Dimer ABG pH POC ABG pCO2 POC ABG pO2 ABG pO2 ABG HCO3 ABG O2 Saturation ABG Base Excess ABG Hemoglobin ABG Oxyhemoglobin ABG Sodium ABG Potassium ABG Glucose Oxyhemoglobin Sodium Potassium Chloride Carbon Dioxide BUN Creatinine Glucose POC Glucose 116 H 125 H Lactic Acid Calcium Phosphorus Magnesium Ferritin Lactate Dehydrogenase C-Reactive Protein NT-Pro-B Natriuret Pep Total Protein Albumin Triglycerides Arterial Blood Glucose Ur Specific [place] Coronavirus (PCR) 03/25/21 03/25/21 03/25/21 04:32 05:21 09:29 WBC RBC Hgb Hct MCV MCHC RDW Plt Count Lymph % (Auto) [place] % (Auto) Lymph # (Auto) [place] # (Auto) Seg Neutrophils % Seg Neuts % (Manual) Lymphocytes % (Manual) Monocytes % (Manual) Nucleated RBC % Seg Neutrophils # Seg Neutrophils # Man Lymphocytes # (Manual) Monocytes # (Manual) PT INR D-Dimer ABG pH POC ABG pCO2 POC ABG pO2 ABG pO2 ABG HCO3 ABG O2 Saturation ABG Base Excess ABG Hemoglobin ABG Oxyhemoglobin ABG Sodium ABG Potassium ABG Glucose Oxyhemoglobin Sodium 135 L D Potassium Chloride Carbon Dioxide BUN 25 H Creatinine 0.7 L Glucose 168 H POC Glucose 149 H 115 H Lactic Acid Calcium Phosphorus Magnesium Ferritin Lactate Dehydrogenase C-Reactive Protein NT-Pro-B Natriuret Pep Total Protein Albumin Triglycerides Arterial Blood Glucose Ur Specific [place] Coronavirus (PCR) 03/25/21 03/25/21 03/25/21 12:26 12:35 23:53 WBC RBC Hgb Hct MCV MCHC RDW Plt Count Lymph % (Auto) [place] % (Auto) Lymph # (Auto) [place] # (Auto) Seg Neutrophils % Seg Neuts % (Manual) Lymphocytes % (Manual) Monocytes % (Manual) Nucleated RBC % Seg Neutrophils # Seg Neutrophils # Man Lymphocytes # (Manual) Monocytes # (Manual) PT INR D-Dimer ABG pH POC ABG pCO2 POC ABG pO2 ABG pO2 100.5 H ABG HCO3 33.6 H ABG O2 Saturation ABG Base Excess 6.4 H ABG Hemoglobin 12.0 L ABG Oxyhemoglobin ABG Sodium ABG Potassium ABG Glucose Oxyhemoglobin Sodium Potassium Chloride Carbon Dioxide BUN Creatinine Glucose POC Glucose 108 H 137 H Lactic Acid Calcium Phosphorus Magnesium Ferritin Lactate Dehydrogenase C-Reactive Protein NT-Pro-B Natriuret Pep Total Protein Albumin Triglycerides Arterial Blood Glucose Ur Specific [place] Coronavirus (PCR) 03/26/21 03/26/21 03/26/21 05:14 07:09 07:09 WBC RBC Hgb Hct MCV MCHC RDW 16.5 H Plt Count 139 L Lymph % (Auto) [place] % (Auto) Lymph # (Auto) [place] # (Auto) Seg Neutrophils % Seg Neuts % (Manual) Lymphocytes % (Manual) Monocytes % (Manual) Nucleated RBC % Seg Neutrophils # Seg Neutrophils # Man Lymphocytes # (Manual) Monocytes # (Manual) PT INR D-Dimer ABG pH POC ABG pCO2 POC ABG pO2 ABG pO2 ABG HCO3 ABG O2 Saturation ABG Base Excess ABG Hemoglobin ABG Oxyhemoglobin ABG Sodium ABG Potassium ABG Glucose Oxyhemoglobin Sodium Potassium Chloride Carbon Dioxide BUN 22 H Creatinine 0.7 L Glucose 108 H POC Glucose 116 H Lactic Acid Calcium Phosphorus Magnesium Ferritin Lactate Dehydrogenase C-Reactive Protein NT-Pro-B Natriuret Pep Total Protein Albumin Triglycerides Arterial Blood Glucose Ur Specific [place] Coronavirus (PCR) 03/26/21 03/26/21 03/26/21 09:51 11:15 16:59 WBC RBC Hgb Hct MCV MCHC RDW Plt Count Lymph % (Auto) [place] % (Auto) Lymph # (Auto) [place] # (Auto) Seg Neutrophils % Seg Neuts % (Manual) Lymphocytes % (Manual) Monocytes % (Manual) Nucleated RBC % Seg Neutrophils # Seg Neutrophils # Man Lymphocytes # (Manual) Monocytes # (Manual) PT INR D-Dimer ABG pH POC ABG pCO2 POC ABG pO2 ABG pO2 ABG HCO3 ABG O2 Saturation ABG Base Excess ABG Hemoglobin ABG Oxyhemoglobin ABG Sodium ABG Potassium ABG Glucose Oxyhemoglobin Sodium Potassium Chloride Carbon Dioxide BUN Creatinine Glucose POC Glucose 107 H 119 H 174 H Lactic Acid Calcium Phosphorus Magnesium Ferritin Lactate Dehydrogenase C-Reactive Protein NT-Pro-B Natriuret Pep Total Protein Albumin Triglycerides Arterial Blood Glucose Ur Specific [place] Coronavirus (PCR) 03/26/21 03/27/21 03/27/21 22:18 07:08 10:28 WBC RBC Hgb Hct MCV 95 H MCHC RDW 16.2 H Plt Count 134 L Lymph % (Auto) [place] % (Auto) Lymph # (Auto) [place] # (Auto) Seg Neutrophils % Seg Neuts % (Manual) Lymphocytes % (Manual) Monocytes % (Manual) Nucleated RBC % Seg Neutrophils # Seg Neutrophils # Man Lymphocytes # (Manual) Monocytes # (Manual) PT INR D-Dimer ABG pH POC ABG pCO2 POC ABG pO2 ABG pO2 ABG HCO3 ABG O2 Saturation ABG Base Excess ABG Hemoglobin ABG Oxyhemoglobin ABG Sodium ABG Potassium ABG Glucose Oxyhemoglobin Sodium Potassium Chloride Carbon Dioxide BUN Creatinine Glucose POC Glucose 107 H 52 L Lactic Acid Calcium Phosphorus Magnesium Ferritin Lactate Dehydrogenase C-Reactive Protein NT-Pro-B Natriuret Pep Total Protein Albumin Triglycerides Arterial Blood Glucose Ur Specific [place] Coronavirus (PCR) 03/27/21 03/27/21 03/27/21 10:28 11:45 17:39 WBC RBC Hgb Hct MCV MCHC RDW Plt Count Lymph % (Auto) [place] % (Auto) Lymph # (Auto) [place] # (Auto) Seg Neutrophils % Seg Neuts % (Manual) Lymphocytes % (Manual) Monocytes % (Manual) Nucleated RBC % Seg Neutrophils # Seg Neutrophils # Man Lymphocytes # (Manual) Monocytes # (Manual) PT INR D-Dimer ABG pH POC ABG pCO2 POC ABG pO2 ABG pO2 ABG HCO3 ABG O2 Saturation ABG Base Excess ABG Hemoglobin ABG Oxyhemoglobin ABG Sodium ABG Potassium ABG Glucose Oxyhemoglobin Sodium 136 L Potassium Chloride Carbon Dioxide BUN Creatinine 0.7 L Glucose 150 H POC Glucose 121 H 165 H Lactic Acid Calcium Phosphorus Magnesium Ferritin Lactate Dehydrogenase C-Reactive Protein NT-Pro-B Natriuret Pep Total Protein Albumin Triglycerides Arterial Blood Glucose Ur Specific [place] Coronavirus (PCR) 03/28/21 03/28/21 03/28/21 07:14 11:42 18:22 WBC RBC Hgb Hct MCV MCHC RDW 16.4 H Plt Count Lymph % (Auto) [place] % (Auto) Lymph # (Auto) [place] # (Auto) Seg Neutrophils % Seg Neuts % (Manual) Lymphocytes % (Manual) Monocytes % (Manual) Nucleated RBC % Seg Neutrophils # Seg Neutrophils # Man Lymphocytes # (Manual) Monocytes # (Manual) PT INR D-Dimer ABG pH POC ABG pCO2 POC ABG pO2 ABG pO2 ABG HCO3 ABG O2 Saturation ABG Base Excess ABG Hemoglobin ABG Oxyhemoglobin ABG Sodium ABG Potassium ABG Glucose Oxyhemoglobin Sodium Potassium Chloride Carbon Dioxide BUN Creatinine Glucose POC Glucose 145 H 169 H Lactic Acid Calcium Phosphorus Magnesium Ferritin Lactate Dehydrogenase C-Reactive Protein NT-Pro-B Natriuret Pep Total Protein Albumin Triglycerides Arterial Blood Glucose Ur Specific [place] Coronavirus (PCR) 03/28/21 03/29/21 03/29/21 23:39 04:50 04:50 WBC RBC Hgb 11.0 L Hct 34.9 L MCV MCHC RDW 15.9 H Plt Count Lymph % (Auto) [place] % (Auto) Lymph # (Auto) [place] # (Auto) Seg Neutrophils % Seg Neuts % (Manual) Lymphocytes % (Manual) Monocytes % (Manual) Nucleated RBC % Seg Neutrophils # Seg Neutrophils # Man Lymphocytes # (Manual) Monocytes # (Manual) PT INR D-Dimer ABG pH POC ABG pCO2 POC ABG pO2 ABG pO2 ABG HCO3 ABG O2 Saturation ABG Base Excess ABG Hemoglobin ABG Oxyhemoglobin ABG Sodium ABG Potassium ABG Glucose Oxyhemoglobin Sodium Potassium Chloride Carbon Dioxide 34 H BUN Creatinine 0.6 L Glucose 152 H POC Glucose 139 H Lactic Acid Calcium Phosphorus Magnesium Ferritin Lactate Dehydrogenase C-Reactive Protein NT-Pro-B Natriuret Pep Total Protein Albumin Triglycerides Arterial Blood Glucose Ur Specific [place] Coronavirus (PCR) 03/29/21 03/29/21 03/29/21 05:25 11:34 18:02 WBC RBC Hgb Hct MCV MCHC RDW Plt Count Lymph % (Auto) [place] % (Auto) Lymph # (Auto) [place] # (Auto) Seg Neutrophils % Seg Neuts % (Manual) Lymphocytes % (Manual) Monocytes % (Manual) Nucleated RBC % Seg Neutrophils # Seg Neutrophils # Man Lymphocytes # (Manual) Monocytes # (Manual) PT INR D-Dimer ABG pH POC ABG pCO2 POC ABG pO2 ABG pO2 ABG HCO3 ABG O2 Saturation ABG Base Excess ABG Hemoglobin ABG Oxyhemoglobin ABG Sodium ABG Potassium ABG Glucose Oxyhemoglobin Sodium Potassium Chloride Carbon Dioxide BUN Creatinine Glucose POC Glucose 127 H 169 H 173 H Lactic Acid Calcium Phosphorus Magnesium Ferritin Lactate Dehydrogenase C-Reactive Protein NT-Pro-B Natriuret Pep Total Protein Albumin Triglycerides Arterial Blood Glucose Ur Specific [place] Coronavirus (PCR) 03/29/21 03/30/21 03/30/21 21:42 00:01 05:36 WBC RBC Hgb Hct MCV MCHC RDW 16.7 H Plt Count Lymph % (Auto) [place] % (Auto) Lymph # (Auto) [place] # (Auto) Seg Neutrophils % Seg Neuts % (Manual) Lymphocytes % (Manual) Monocytes % (Manual) Nucleated RBC % Seg Neutrophils # Seg Neutrophils # Man Lymphocytes # (Manual) Monocytes # (Manual) PT INR D-Dimer ABG pH POC ABG pCO2 POC ABG pO2 ABG pO2 ABG HCO3 ABG O2 Saturation ABG Base Excess ABG Hemoglobin ABG Oxyhemoglobin ABG Sodium ABG Potassium ABG Glucose Oxyhemoglobin Sodium Potassium Chloride Carbon Dioxide BUN Creatinine Glucose POC Glucose 184 H 161 H Lactic Acid Calcium Phosphorus Magnesium Ferritin Lactate Dehydrogenase C-Reactive Protein NT-Pro-B Natriuret Pep Total Protein Albumin Triglycerides Arterial Blood Glucose Ur Specific [place] Coronavirus (PCR) 03/30/21 03/30/21 03/30/21 05:36 06:03 11:32 WBC RBC Hgb Hct MCV MCHC RDW Plt Count Lymph % (Auto) [place] % (Auto) Lymph # (Auto) [place] # (Auto) Seg Neutrophils % Seg Neuts % (Manual) Lymphocytes % (Manual) Monocytes % (Manual) Nucleated RBC % Seg Neutrophils # Seg Neutrophils # Man Lymphocytes # (Manual) Monocytes # (Manual) PT INR D-Dimer ABG pH POC ABG pCO2 POC ABG pO2 ABG pO2 ABG HCO3 ABG O2 Saturation ABG Base Excess ABG Hemoglobin ABG Oxyhemoglobin ABG Sodium ABG Potassium ABG Glucose Oxyhemoglobin Sodium Potassium Chloride Carbon Dioxide BUN Creatinine 0.5 L Glucose 127 H POC Glucose 130 H 183 H Lactic Acid Calcium Phosphorus Magnesium Ferritin Lactate Dehydrogenase C-Reactive Protein NT-Pro-B Natriuret Pep Total Protein Albumin Triglycerides Arterial Blood Glucose Ur Specific [place] Coronavirus (PCR) 03/30/21 03/30/21 03/30/21 15:00 16:23 21:07 WBC RBC Hgb Hct MCV MCHC RDW Plt Count Lymph % (Auto) [place] % (Auto) Lymph # (Auto) [place] # (Auto) Seg Neutrophils % Seg Neuts % (Manual) Lymphocytes % (Manual) Monocytes % (Manual) Nucleated RBC % Seg Neutrophils # Seg Neutrophils # Man Lymphocytes # (Manual) Monocytes # (Manual) PT INR D-Dimer ABG pH POC ABG pCO2 POC ABG pO2 ABG pO2 67.2 L ABG HCO3 34.9 H ABG O2 Saturation ABG Base Excess 9.1 H ABG Hemoglobin 11.6 L ABG Oxyhemoglobin ABG Sodium ABG Potassium ABG Glucose Oxyhemoglobin 93.0 L Sodium Potassium Chloride Carbon Dioxide BUN Creatinine Glucose POC Glucose 162 H 146 H Lactic Acid Calcium Phosphorus Magnesium Ferritin Lactate Dehydrogenase C-Reactive Protein NT-Pro-B Natriuret Pep Total Protein Albumin Triglycerides Arterial Blood Glucose Ur Specific [place] Coronavirus (PCR) 03/30/21 03/31/21 03/31/21 23:23 05:44 11:19 WBC RBC Hgb Hct MCV MCHC RDW Plt Count Lymph % (Auto) [place] % (Auto) Lymph # (Auto) [place] # (Auto) Seg Neutrophils % Seg Neuts % (Manual) Lymphocytes % (Manual) Monocytes % (Manual) Nucleated RBC % Seg Neutrophils # Seg Neutrophils # Man Lymphocytes # (Manual) Monocytes # (Manual) PT INR D-Dimer ABG pH POC ABG pCO2 POC ABG pO2 ABG pO2 ABG HCO3 ABG O2 Saturation ABG Base Excess ABG Hemoglobin ABG Oxyhemoglobin ABG Sodium ABG Potassium ABG Glucose Oxyhemoglobin Sodium Potassium Chloride Carbon Dioxide BUN Creatinine Glucose POC Glucose 138 H 180 H 178 H Lactic Acid Calcium Phosphorus Magnesium Ferritin Lactate Dehydrogenase C-Reactive Protein NT-Pro-B Natriuret Pep Total Protein Albumin Triglycerides Arterial Blood Glucose Ur Specific [place] Coronavirus (PCR) 03/31/21 03/31/21 03/31/21 12:50 13:30 16:06 WBC RBC Hgb 11.3 L Hct 35.1 L MCV MCHC RDW 16.5 H Plt Count Lymph % (Auto) 7.6 L [place] % (Auto) 9.5 H Lymph # (Auto) 0.6 L [place] # (Auto) Seg Neutrophils % 78.3 H Seg Neuts % (Manual) Lymphocytes % (Manual) Monocytes % (Manual) Nucleated RBC % Seg Neutrophils # Seg Neutrophils # Man Lymphocytes # (Manual) Monocytes # (Manual) PT INR D-Dimer ABG pH POC ABG pCO2 POC ABG pO2 ABG pO2 99.4 H ABG HCO3 34.9 H ABG O2 Saturation ABG Base Excess 8.4 H ABG Hemoglobin 11.8 L ABG Oxyhemoglobin ABG Sodium ABG Potassium ABG Glucose Oxyhemoglobin Sodium Potassium Chloride Carbon Dioxide BUN Creatinine Glucose POC Glucose 197 H Lactic Acid Calcium Phosphorus Magnesium Ferritin Lactate Dehydrogenase C-Reactive Protein NT-Pro-B Natriuret Pep Total Protein Albumin Triglycerides Arterial Blood Glucose Ur Specific [place] Coronavirus (PCR) 03/31/21 04/01/21 04/01/21 20:51 05:37 07:16 WBC RBC 3.39 L Hgb 10.5 L Hct 31.6 L MCV MCHC RDW 16.1 H Plt Count Lymph % (Auto) [place] % (Auto) Lymph # (Auto) [place] # (Auto) Seg Neutrophils % Seg Neuts % (Manual) Lymphocytes % (Manual) Monocytes % (Manual) Nucleated RBC % Seg Neutrophils # Seg Neutrophils # Man Lymphocytes # (Manual) Monocytes # (Manual) PT INR D-Dimer ABG pH POC ABG pCO2 POC ABG pO2 ABG pO2 ABG HCO3 ABG O2 Saturation ABG Base Excess ABG Hemoglobin ABG Oxyhemoglobin ABG Sodium ABG Potassium ABG Glucose Oxyhemoglobin Sodium Potassium Chloride Carbon Dioxide BUN Creatinine Glucose POC Glucose 140 H 128 H Lactic Acid Calcium Phosphorus Magnesium Ferritin Lactate Dehydrogenase C-Reactive Protein NT-Pro-B Natriuret Pep Total Protein Albumin Triglycerides Arterial Blood Glucose Ur Specific [place] Coronavirus (PCR) 04/01/21 04/01/21 04/01/21 07:16 11:52 16:56 WBC RBC Hgb Hct MCV MCHC RDW Plt Count Lymph % (Auto) [place] % (Auto) Lymph # (Auto) [place] # (Auto) Seg Neutrophils % Seg Neuts % (Manual) Lymphocytes % (Manual) Monocytes % (Manual) Nucleated RBC % Seg Neutrophils # Seg Neutrophils # Man Lymphocytes # (Manual) Monocytes # (Manual) PT INR D-Dimer ABG pH POC ABG pCO2 POC ABG pO2 ABG pO2 ABG HCO3 ABG O2 Saturation ABG Base Excess ABG Hemoglobin ABG Oxyhemoglobin ABG Sodium ABG Potassium ABG Glucose Oxyhemoglobin Sodium Potassium Chloride Carbon Dioxide BUN Creatinine 0.6 L Glucose 131 H POC Glucose 182 H 179 H Lactic Acid Calcium 8.3 L Phosphorus Magnesium Ferritin Lactate Dehydrogenase C-Reactive Protein NT-Pro-B Natriuret Pep Total Protein Albumin Triglycerides Arterial Blood Glucose Ur Specific [place] Coronavirus (PCR) 04/01/21 04/01/21 04/02/21 21:30 23:40 04:26 WBC RBC 3.62 L Hgb 10.8 L Hct 33.9 L MCV MCHC RDW 16.0 H Plt Count Lymph % (Auto) [place] % (Auto) Lymph # (Auto) [place] # (Auto) Seg Neutrophils % Seg Neuts % (Manual) Lymphocytes % (Manual) Monocytes % (Manual) Nucleated RBC % Seg Neutrophils # Seg Neutrophils # Man Lymphocytes # (Manual) Monocytes # (Manual) PT INR D-Dimer ABG pH POC ABG pCO2 POC ABG pO2 ABG pO2 ABG HCO3 ABG O2 Saturation ABG Base Excess ABG Hemoglobin ABG Oxyhemoglobin ABG Sodium ABG Potassium ABG Glucose Oxyhemoglobin Sodium Potassium Chloride Carbon Dioxide BUN Creatinine Glucose POC Glucose 131 H 129 H Lactic Acid Calcium Phosphorus Magnesium Ferritin Lactate Dehydrogenase C-Reactive Protein NT-Pro-B Natriuret Pep Total Protein Albumin Triglycerides Arterial Blood Glucose Ur Specific [place] Coronavirus (PCR) 04/02/21 04/02/21 04/02/21 04:26 05:54 11:35 WBC RBC Hgb Hct MCV MCHC RDW Plt Count Lymph % (Auto) [place] % (Auto) Lymph # (Auto) [place] # (Auto) Seg Neutrophils % Seg Neuts % (Manual) Lymphocytes % (Manual) Monocytes % (Manual) Nucleated RBC % Seg Neutrophils # Seg Neutrophils # Man Lymphocytes # (Manual) Monocytes # (Manual) PT INR D-Dimer ABG pH POC ABG pCO2 POC ABG pO2 ABG pO2 ABG HCO3 ABG O2 Saturation ABG Base Excess ABG Hemoglobin ABG Oxyhemoglobin ABG Sodium ABG Potassium ABG Glucose Oxyhemoglobin Sodium 136 L Potassium Chloride Carbon Dioxide BUN Creatinine 0.6 L Glucose 152 H POC Glucose 151 H 178 H Lactic Acid Calcium Phosphorus Magnesium Ferritin Lactate Dehydrogenase C-Reactive Protein NT-Pro-B Natriuret Pep Total Protein Albumin Triglycerides Arterial Blood Glucose Ur Specific [place] Coronavirus (PCR) 04/02/21 04/02/21 04/02/21 16:11 21:09 23:38 WBC RBC Hgb Hct MCV MCHC RDW Plt Count Lymph % (Auto) [place] % (Auto) Lymph # (Auto) [place] # (Auto) Seg Neutrophils % Seg Neuts % (Manual) Lymphocytes % (Manual) Monocytes % (Manual) Nucleated RBC % Seg Neutrophils # Seg Neutrophils # Man Lymphocytes # (Manual) Monocytes # (Manual) PT INR D-Dimer ABG pH POC ABG pCO2 POC ABG pO2 ABG pO2 ABG HCO3 ABG O2 Saturation ABG Base Excess ABG Hemoglobin ABG Oxyhemoglobin ABG Sodium ABG Potassium ABG Glucose Oxyhemoglobin Sodium Potassium Chloride Carbon Dioxide BUN Creatinine Glucose POC Glucose 186 H 145 H 152 H Lactic Acid Calcium Phosphorus Magnesium Ferritin Lactate Dehydrogenase C-Reactive Protein NT-Pro-B Natriuret Pep Total Protein Albumin Triglycerides Arterial Blood Glucose Ur Specific [place] Coronavirus (PCR) 04/03/21 04/03/21 04/03/21 04:14 04:14 05:27 WBC RBC 3.62 L Hgb 11.0 L Hct 34.0 L MCV MCHC RDW 16.3 H Plt Count Lymph % (Auto) [place] % (Auto) Lymph # (Auto) [place] # (Auto) Seg Neutrophils % Seg Neuts % (Manual) Lymphocytes % (Manual) Monocytes % (Manual) Nucleated RBC % Seg Neutrophils # Seg Neutrophils # Man Lymphocytes # (Manual) Monocytes # (Manual) PT INR D-Dimer ABG pH POC ABG pCO2 POC ABG pO2 ABG pO2 ABG HCO3 ABG O2 Saturation ABG Base Excess ABG Hemoglobin ABG Oxyhemoglobin ABG Sodium ABG Potassium ABG Glucose Oxyhemoglobin Sodium Potassium Chloride Carbon Dioxide 31 H BUN Creatinine 0.6 L Glucose 155 H POC Glucose 165 H Lactic Acid Calcium Phosphorus Magnesium Ferritin Lactate Dehydrogenase C-Reactive Protein NT-Pro-B Natriuret Pep Total Protein Albumin Triglycerides Arterial Blood Glucose Ur Specific [place] Coronavirus (PCR) 04/03/21 04/03/21 04/03/21 11:02 16:19 19:45 WBC RBC Hgb Hct MCV MCHC RDW Plt Count Lymph % (Auto) [place] % (Auto) Lymph # (Auto) [place] # (Auto) Seg Neutrophils % Seg Neuts % (Manual) Lymphocytes % (Manual) Monocytes % (Manual) Nucleated RBC % Seg Neutrophils # Seg Neutrophils # Man Lymphocytes # (Manual) Monocytes # (Manual) PT INR D-Dimer ABG pH POC ABG pCO2 POC ABG pO2 ABG pO2 ABG HCO3 ABG O2 Saturation ABG Base Excess ABG Hemoglobin ABG Oxyhemoglobin ABG Sodium ABG Potassium ABG Glucose Oxyhemoglobin Sodium Potassium Chloride Carbon Dioxide BUN Creatinine Glucose POC Glucose 161 H 180 H 136 H Lactic Acid Calcium Phosphorus Magnesium Ferritin Lactate Dehydrogenase C-Reactive Protein NT-Pro-B Natriuret Pep Total Protein Albumin Triglycerides Arterial Blood Glucose Ur Specific [place] Coronavirus (PCR) 04/04/21 04/04/21 04/04/21 00:21 04:33 04:33 WBC 13.1 H RBC 3.49 L Hgb 10.3 L Hct 32.7 L MCV MCHC RDW 16.1 H Plt Count Lymph % (Auto) [place] % (Auto) Lymph # (Auto) [place] # (Auto) Seg Neutrophils % Seg Neuts % (Manual) Lymphocytes % (Manual) Monocytes % (Manual) Nucleated RBC % Seg Neutrophils # Seg Neutrophils # Man Lymphocytes # (Manual) Monocytes # (Manual) PT INR D-Dimer ABG pH POC ABG pCO2 POC ABG pO2 ABG pO2 ABG HCO3 ABG O2 Saturation ABG Base Excess ABG Hemoglobin ABG Oxyhemoglobin ABG Sodium ABG Potassium ABG Glucose Oxyhemoglobin Sodium Potassium Chloride Carbon Dioxide 31 H BUN Creatinine 0.4 L Glucose 153 H POC Glucose 140 H Lactic Acid Calcium Phosphorus Magnesium Ferritin Lactate Dehydrogenase C-Reactive Protein NT-Pro-B Natriuret Pep Total Protein Albumin Triglycerides Arterial Blood Glucose Ur Specific [place] Coronavirus (PCR) 04/04/21 04/04/21 05:16 11:39 WBC RBC Hgb Hct MCV MCHC RDW Plt Count Lymph % (Auto) [place] % (Auto) Lymph # (Auto) [place] # (Auto) Seg Neutrophils % Seg Neuts % (Manual) Lymphocytes % (Manual) Monocytes % (Manual) Nucleated RBC % Seg Neutrophils # Seg Neutrophils # Man Lymphocytes # (Manual) Monocytes # (Manual) PT INR D-Dimer ABG pH POC ABG pCO2 POC ABG pO2 ABG pO2 ABG HCO3 ABG O2 Saturation ABG Base Excess ABG Hemoglobin ABG Oxyhemoglobin ABG Sodium ABG Potassium ABG Glucose Oxyhemoglobin Sodium Potassium Chloride Carbon Dioxide BUN Creatinine Glucose POC Glucose 152 H 154 H Lactic Acid Calcium Phosphorus Magnesium Ferritin Lactate Dehydrogenase C-Reactive Protein NT-Pro-B Natriuret Pep Total Protein Albumin Triglycerides Arterial Blood Glucose Ur Specific [place] Coronavirus (PCR) Chest x-ray: other (none today) Allied health notes reviewed: nursing
--- NOTE | 2021-04-04 14:38 | Progress Note ---
<FLORIANMARISABEL TrishLester - Last Filed: 04/04/21 14:33> Assessment and Plan Assessment and plan: This is a 61-year-old man with HTN and DM admitted with COVID-19 pneumonia, acute hypoxic respiratory failure, sepsis Neuro: Acute encephalopathy -Sedated with fentanyl drip -RASS goal 0 to -1 -Avoid delirium -On Seroquel and Librium -taper seroquel -Reorientation as needed -Maintain sleep-wake cycle -As needed analgesia -CT head shows no acute intracranial abnormality -Neurology consulted, appreciate recommendations Cardiac: h/o Hypertension -Cardiology consulted, appreciate recommendations -Blood pressure monitoring per protocol -Echocardiogram shows a mildly dilated ascending aorta, normal LV systolic function, mild concentric LVH, LVEF 60 to 65% -Antihypertensive regimen: Hydralazine, metoprolol, amlodipine Respiratory: Acute hypoxic respiratory failure -CCM consulted, appreciate recommendations -Intubated on 03/10 with 7.50 ETT at 24 at the lips, s/p trach on 03/29 -A.m. vent settings: Assist-control rate 12, tidal volume 450, PEEP 8, FiO2 45% -See RT notes for titration -Placed on CPAP trial 10/04 -A.m. ABG noted -Albuterol as needed, Brovana Pulmicort -VAP bundle -SPO2 monitoring GI: Obesity, external hemorrhoids -24 hours -211 mL -PPI -NTR consulted for tube feedings -BR: Senokot, miralax -BM / -As needed Preparation H : Urinary retention -Nephrology consulted, appreciate recommendations -Strict intake and output -Renally dose medications -Avoid nephrotoxic medications -Doxazosin ID: Severe sepsis (POA), COVID-19 pneumonia, stenotrophomonas maltophilia and tracheal aspirate -Infectious disease consulted, appreciate recommendations -Antibiotic therapy with cefepime -Due to low procalcitonin and cultures remaining negative cefepime was d iscontinued -S/p remdesivir for 5 days -S/p Actemra 03/10/2021 -f/u blood culture -Monitor WBC and temperature curve -steroids tapered off -re culture for fever > 101 Heme: Superficial thrombus in left gastrocnemius vein -Bilateral lower extremity ultrasound negative for DVT, superficial thrombus in left gastrocnemius vein -repeat BLE Doppler US show superficial thrombus -CTA chest shows no gross pulm embolism -Trend CBC -SCDs to BLE while in bed -Transfuse hemoglobin less than 7 -Lovenox prophylactic dosing -Monitor for signs of bleeding Endo: h/o DM -Avoid hypoglycemia -SSI -Accu-Cheks q. 6 -Long-acting insulin, titrate as needed The high probability of a clinically significant, sudden or life threatening det erioration of the [multi] system(s) required my full and direct attention, intervention and personal management. The aggregate critical care time was [60] minutes. This time is in addition to time spent performing reported procedures but includes the following: [x] Data Review and interpretation [x] Patient assessment and monitoring of vital signs [x] Documentation [x] Medication orders and management Disposition Plan: icu Total Time Spent with Patient (Minutes): 60 History Interval history: This is a 61-year-old male with HTN and DM who presented to the emergency department on 03/09 with shortness of breath and hypoxia via EMS. Patient had apparently been feeling ill for proxy 1 week prior to mentation. Upon EMS arrival patient SPO2 was in the low 70s and improved to upper 80slow 90s on nonrebreather and he was transported to [facility] in the emergency department patient was noted to be hypoxic and placed on a BiPAP with improvement to mentation and hypoxia. CXR showed bilateral patchy infiltrates. Lab work showed leukocytosis, elevated D-dimer, hyponatremia, hypochloremia and elevated COVID-19 markers with elevated BNP. CTA chest showed no pulmonary emb olism. Patient was admitted to the hospitalist service as a COVID-19 PUI and started on antibiotics and Decadron with consult to infectious disease. 03/09: The patient was seen and evaluated today, and he was found to be hemodynamically stable. The patient is currently on BiPAP for possible COVID-19 pneumonia. He was started on Lovenox 1mg/kg for DVT ppx in the setting of d- dimer > 10,000. Infectious Disease was consulted. The patient is pending a TTE. 03/10: No acute events overnight, patient was intubated in the afternoon transferred to ICU 03/11: Patient started on Lantus, free water flushes increased, propofol drip resumed and oral antihypertensive added. 03/12: lantus increased, k at 5, will monitor. I updated his family and his stated that he is not vaccinated. He does have HTN and she will call the RN to update home medications. She did say he takes bystolic and amlopine. She inquired about ventilator and lab work. She had no further questions. 03/13: KVNG overnight. Patient remains hyperglycemic, basal insulin adjusted and increased to Q12hrs. Patient is overall net positive since admit X1 dose of IV lasix, repeat BMP this afternoon. 03/14: Failed SAT this am due to increase agitation, tachycardia and hypertension. Remains on propofol and fentanyl gtt. Hyperkalemia treated with PO kayaxalate. Patient responded to IV lasix yesterday additional dose again today for a net negative balance. Repeat BMP this afternoon. Insulin adjusted for hyperglycemia. 03/15: Remains encephalopathic, not following commansd. Orders placed for CT head/Brain and Neuro consulted. Rectal bleeding subsided, most likely due to hemorrhoids. H&H is stable will continue to monitor. Kayaxexalate for high K, repeat labs 4 to 6hrs post treatment. 03/16: Still agiated this am, CT head with no acute Abn. CXR and ABG noted- evolving pna and worsening hypoxia, now with low grade fevers. Sputum culture ordered, IV Abx added, ID on cosult. 03/17: This am ABG noted, hypoxia improved. Continue to wean FiO2 as tolerated. Still with low grade fevers, on IV Abx per ID. Still with periods of confusion despite sedation, seroquel increased. F/u CXR in the am 03/18: still very agitated especially when off sedation, with hypertension and tachycardia. Continue sedation for RASS -2, PRN antihypertensive for SPB greater than 160. This febrile this am, continue current IV abx per ID 03/19: Patient afebrile overnight, continue IV Abx per ID. ABG also improved this am, continue to wean FIO2 as tolerated. PRN antihypertensive for hypertension. 03/20: Hyperkalemia treated with Kayexalate, Good discontinued, vancomycin and cefepime stopped started Bactrim by ID. Steroid taper started. 03/21: BB started for hypertension, Seroquel increased for agitation and Librium started no acute events reported overnight. [facility] made vent changes 03/22: Adjustment to anxiolytics, respiratory rate on ventilator per [facility]. Patient noted to have bleeding hemorrhoids with clot, requested RN to remove bowel management system and will order Preparation H. 03/23: Given no confirmed DVT or PE (only superficial thrombus noted on Dopplers) therapeutic Lovenox changed to prophylactic Lovenox. Started on doxazosin to help with retention. Consulted surgery for tracheostomy and propofol discontinued. 03/24: Surgery consult completed, patient changed to prophylaxis anticoagulation, started on doxazosin yesterday with plans to remove Good catheter in 48 hours. Patient with slight hypokalemia today and given Kayexalate. No acute events reported overnight. 03/25: No acute events reported overnight. Patient remains on fentanyl drip and on CPAP trial this morning. 03/26: no acute events reported overnight. placed on CPAP this AM, remains on fent/librium. scheduled for trach/peg this week. 03/27: Hypoglycemic this am, will decreased lantus to Qhs. Plan for possible Trach and Peg by Gen Surg this am. Case management to arrange possible LTAC placement 03/28: KVNG overnight. Tolerating PST this am. Plan for trach and PEG tomorrow by Gen. Surgery, NPO after midnight. 03/29: No significant changes overnight. Plan for trach and Peg today. Case management to arrange possible LTAC placement 03/30. S/p Trach and PEG, no complications noted. High residual yesterday despite NPO status, reglan added X2 days. Per RN no residual this am, patient is tolerating TF. Continue to advance TF as tolerated. Norvasc added for hypertension. Pitting edema also appreciated, some diuretic might be beneficial, will d/w CCM. Continue daily PST as tolerated. 03/31: Patient remains on the vent still on fentanyl gtt with periods of agitation. PRN analgesia added, plan to start weaning off fentanyl gtt. Febrile this am, completed IV abx course. Will panculture for now, ID is also following. 04/01: Still febrile overnight, cultures result pending, continue IV ABx per ID. Failed PST this am. Continue daily PST and vent wean per CCM. Case management to arrange possible placement. 04/02: KVNG overnight. Fevers improved overnight, continue to follow cultures data, IV ABx per ID. Continue daily PST and wean vent as per CCM. 04/03: Given low procalcitonin, unchanged CXR and cultures with no growth cefepime was discontinued by ID. LTAC evaluation ongoing. No acute events reported overnight. 04/04: IV Lasix stopped today, Seroquel taper started, fentanyl drip on hold and steroids stopped. Pressure support trial again today. Hospitalist Physical - Constitutional Vitals: Temp Pulse Resp BP Pulse Ox 99.1 F 101 H 32 H 117/73 94 04/04/21 11:45 04/04/21 13:31 04/04/21 13:31 04/04/21 13:31 04/04/21 13:31 General appearance: Present: no acute distress, well-nourished, obese, other (On the vent, on sedation) - EENT Eyes: Present: PERRL, EOM intact - Neck Neck: Present: normal ROM - Respiratory Respiratory effort: normal Respiratory: bilateral: CTA, diminished - Cardiovascular Rhythm: regular Heart Sounds: Present: S1 & S2. Absent: systolic murmur, diastolic murmur - Extremities Extremities: no ischemia, pulses intact, pulses symmetrical, normal temperature, normal color Peripheral Pulses: within normal limits - Abdominal General gastrointestinal: soft, non-tender, non-distended, normal bowel sounds - Integumentary Integumentary: Present: warm, dry - Psychiatric Psychiatric: other (sedated) - Neurologic Neurologic: other (sedated, opens eye spontanously) - Allied Health Allied health notes reviewed: nursing, RT, social work Results - Labs CBC & Chem 7: 04/04/21 04:33 04/04/21 04:33 Labs: Laboratory Last Values WBC 13.1 K/mm3 (4.5-11.0) H 04/04/21 04:33 RBC 3.49 M/mm3 (3.65-5.03) L 04/04/21 04:33 Hgb 10.3 gm/dl (11.8-15.2) L 04/04/21 04:33 Hct 32.7 % (35.5-45.6) L 04/04/21 04:33 MCV 94 fl (84-94) 04/04/21 04:33 MCH 30 pg (28-32) 04/04/21 04:33 MCHC 32 % (32-34) 04/04/21 04:33 RDW 16.1 % (13.2-15.2) H 04/04/21 04:33 Plt Count 344 K/mm3 (140-440) 04/04/21 04:33 Lymph % (Auto) 7.6 % (13.4-35.0) L 03/31/21 13:30 [place] % (Auto) 9.5 % (0.0-7.3) H 03/31/21 13:30 Eos % (Auto) 4.1 % (0.0-4.3) 03/31/21 13:30 Baso % (Auto) 0.5 % (0.0-1.8) 03/31/21 13:30 Lymph # (Auto) 0.6 K/mm3 (1.2-5.4) L 03/31/21 13:30 [place] # (Auto) 0.7 K/mm3 (0.0-0.8) 03/31/21 13:30 Eos # (Auto) 0.3 K/mm3 (0.0-0.4) 03/31/21 13:30 Baso # (Auto) 0.0 K/mm3 (0.0-0.1) 03/31/21 13:30 Add Manual Diff Complete 03/10/21 04:29 Total Counted 100 03/10/21 04:29 Seg Neutrophils % 78.3 % (40.0-70.0) H 03/31/21 13:30 Seg Neuts % (Manual) 94.0 % (40.0-70.0) H 03/10/21 04:29 Band Neutrophils % 0 % 03/10/21 04:29 Lymphocytes % (Manual) 1.0 % (13.4-35.0) L 03/10/21 04:29 Reactive Lymphs % (Man) 0 % 03/10/21 04:29 Monocytes % (Manual) 5.0 % (0.0-7.3) 03/10/21 04:29 Eosinophils % (Manual) 0 % (0.0-4.3) 03/10/21 04:29 Basophils % (Manual) 0 % (0.0-1.8) 03/10/21 04:29 Metamyelocytes % 0 % 03/10/21 04:29 Myelocytes % 0 % 03/10/21 04:29 Promyelocytes % 0 % 03/10/21 04:29 Blast Cells % 0 % 03/10/21 04:29 Nucleated RBC % 3.0 % (0.0-0.9) H 03/10/21 04:29 Seg Neutrophils # 5.8 K/mm3 (1.8-7.7) 03/31/21 13:30 Seg Neutrophils # Man 19.4 K/mm3 (1.8-7.7) H 03/10/21 04:29 Band Neutrophils # 0.0 K/mm3 03/10/21 04:29 Lymphocytes # (Manual) 0.2 K/mm3 (1.2-5.4) L 03/10/21 04:29 Abs React Lymphs (Man) 0.0 K/mm3 03/10/21 04:29 Monocytes # (Manual) 1.0 K/mm3 (0.0-0.8) H 03/10/21 04:29 Eosinophils # (Manual) 0.0 K/mm3 (0.0-0.4) 03/10/21 04:29 Basophils # (Manual) 0.0 K/mm3 (0.0-0.1) 03/10/21 04:29 Metamyelocytes # 0.0 K/mm3 03/10/21 04:29 Myelocytes # 0.0 K/mm3 03/10/21 04:29 Promyelocytes # 0.0 K/mm3 03/10/21 04:29 Blast Cells # 0.0 K/mm3 03/10/21 04:29 WBC Morphology Not Reportable 03/10/21 04:29 Hypersegmented Neuts Not Reportable 03/10/21 04:29 Hyposegmented Neuts Not Reportable 03/10/21 04:29 Hypogranular Neuts Not Reportable 03/10/21 04:29 Smudge Cells Not Reportable 03/10/21 04:29 Toxic Granulation Not Reportable 03/10/21 04:29 Toxic Vacuolation Not Reportable 03/10/21 04:29 Dohle Bodies Not Reportable 03/10/21 04:29 Pelger-Huet Anomaly Not Reportable 03/10/21 04:29 Mely Rods Not Reportable 03/10/21 04:29 Platelet Estimate Consistent w auto 03/10/21 04:29 Clumped Platelets Not Reportable 03/10/21 04:29 Plt Clumps, EDTA Not Reportable 03/10/21 04:29 Large Platelets Not Reportable 03/10/21 04:29 Giant Platelets Not Reportable 03/10/21 04:29 Platelet Satelliting Not Reportable 03/10/21 04:29 Plt Morphology Comment Not Reportable 03/10/21 04:29 RBC Morphology Normal 03/10/21 04:29 Dimorphic RBCs Not Reportable 03/10/21 04:29 Polychromasia Not Reportable 03/10/21 04:29 Hypochromasia Not Reportable 03/10/21 04:29 Poikilocytosis Not Reportable 03/10/21 04:29 Anisocytosis Not Reportable 03/10/21 04:29 Microcytosis Not Reportable 03/10/21 04:29 Macrocytosis Not Reportable 03/10/21 04:29 Spherocytes Not Reportable 03/10/21 04:29 Pappenheimer Bodies Not Reportable 03/10/21 04:29 Sickle Cells Not Reportable 03/10/21 04:29 Target Cells Not Reportable 03/10/21 04:29 Tear Drop Cells Not Reportable 03/10/21 04:29 Ovalocytes Not Reportable 03/10/21 04:29 Helmet Cells Not Reportable 03/10/21 04:29 [place] Bodies Not Reportable 03/10/21 04:29 [place] Rings Not Reportable 03/10/21 04:29 [place] Cells Not Reportable 03/10/21 04:29 Bite Cells Not Reportable 03/10/21 04:29 Crenated Cell Not Reportable 03/10/21 04:29 Elliptocytes Not Reportable 03/10/21 04:29 Acanthocytes (Spur) Not Reportable 03/10/21 04:29 Rouleaux Not Reportable 03/10/21 04:29 Hemoglobin C Crystals Not Reportable 03/10/21 04:29 Schistocytes Not Reportable 03/10/21 04:29 Malaria parasites Not Reportable 03/10/21 04:29 [place] Bodies Not Reportable 03/10/21 04:29 Hem Pathologist Commnt No 03/10/21 04:29 PT 13.0 Sec. (12.2-14.9) 03/29/21 04:50 INR 0.88 (0.87-1.13) 03/29/21 04:50 APTT 28.0 Sec. (24.2-36.6) 03/08/21 20:24 D-Dimer 1359.12 ng/mlDDU (0-234) H 03/17/21 04:40 ABG pH 7.397 pH Units (7.350-7.450) 03/31/21 12:50 POC ABG pCO2 71.9 mmHg (32.0-48.0) H 03/12/21 21:54 ABG pCO2 58.1 mm Hg 03/31/21 12:50 POC ABG pO2 53.6 mmHg (83-108) L 03/12/21 21:54 ABG pO2 99.4 mm Hg (80.0-90.0) H 03/31/21 12:50 POC ABG HCO3 30.0 03/12/21 21:54 ABG HCO3 34.9 mmol/L (20.0-26.0) H 03/31/21 12:50 ABG O2 Saturation 97.3 % (95.0-99.0) 03/31/21 12:50 ABG O2 Content 15.9 (0.0-44) 03/31/21 12:50 POC ABG Base Excess 0.5 03/12/21 21:54 ABG Base Excess 8.4 mmol/L (-2.0-3.0) H 03/31/21 12:50 ABG Hemoglobin 11.8 gm/dl (14.0-18.0) L 03/31/21 12:50 ABG Oxyhemoglobin 84.8 (94-98) L 03/12/21 21:54 ABG Carboxyhemoglobin 1.6 % (0.0-5.0) 03/31/21 12:50 ABG Methemoglobin 0.7 % (0.0-1.5) 03/31/21 12:50 ABG Sodium 134.2 mmol/L (136.0-145.0) L 03/12/21 21:54 ABG Potassium 4.9 mmol/L (3.40-4.50) H 03/12/21 21:54 ABG Chloride 99.0 mmol/L (98-107) 03/12/21 21:54 ABG Glucose 306 mg/dL (65-95) H 03/12/21 21:54 Oxyhemoglobin 95.1 % (95.0-99.0) 03/31/21 12:50 Carboxyhemoglobin 0.6 (0.5-1.5) 03/12/21 21:54 FiO2 40 % 03/31/21 12:50 FiO2 % 50.0 03/12/21 21:54 Sodium 140 mmol/L (137-145) 04/04/21 04:33 Potassium 4.6 mmol/L (3.6-5.0) 04/04/21 04:33 Chloride 99.6 mmol/L (98-107) 04/04/21 04:33 Carbon Dioxide 31 mmol/L (22-30) H 04/04/21 04:33 Anion Gap 14 mmol/L 04/04/21 04:33 BUN 17 mg/dL (9-20) 04/04/21 04:33 Creatinine 0.4 mg/dL (0.8-1.3) L 04/04/21 04:33 Estimated GFR > 60 ml/min 04/04/21 04:33 BUN/Creatinine Ratio 43 % 04/04/21 04:33 Glucose 153 mg/dL (75-100) H 04/04/21 04:33 POC Glucose 154 mg/dL (70-105) H 04/04/21 11:39 Lactic Acid 1.90 mmol/L (0.7-2.0) 03/08/21 23:51 Calcium 8.5 mg/dL (8.4-10.2) 04/04/21 04:33 Phosphorus 3.40 mg/dL (2.5-4.5) 04/02/21 04:26 Magnesium 2.10 mg/dL (1.7-2.3) 04/02/21 04:26 Ferritin 976.4 ng/mL (30.0-300.0) H 03/15/21 04:00 Total Bilirubin 0.20 mg/dL (0.1-1.2) 03/12/21 08:03 AST 10 units/L (5-40) 03/12/21 08:03 ALT 16 units/L (7-56) 03/12/21 08:03 Alkaline Phosphatase 77 units/L (35-129) 03/12/21 08:03 Lactate Dehydrogenase 630 units/L (91-180) H 03/15/21 06:06 C-Reactive Protein 0.40 mg/dL (0.00-1.30) 03/17/21 04:40 NT-Pro-B Natriuret Pep 1053 pg/mL (0-900) H 03/08/21 20:24 Total Protein 6.0 g/dL (6.3-8.2) L 03/12/21 08:03 Albumin 2.9 g/dL (3.9-5) L 03/12/21 08:03 Albumin/Globulin Ratio 0.9 % 03/12/21 08:03 Triglycerides 305 mg/dL (2-149) H 03/22/21 07:26 Procalcitonin 0.17 ng/mL (<0.15) 04/01/21 07:16 Arterial Blood Glucose 306 mg/dL (65-95) H 03/12/21 21:54 Arterial Blood Ionized Calcium 5.0 mg/dL (4.6-5.3) 03/12/21 21:54 Urine Color Yellow (Yellow) 03/09/21 04:10 Urine Turbidity Slightly-cloudy (Clear) 03/09/21 04:10 Urine pH 5.0 (5.0-7.0) 03/09/21 04:10 Ur Specific [place] 1.041 (1.003-1.030) H 03/09/21 04:10 Urine Protein 100 mg/dl mg/dL (Negative) 03/09/21 04:10 Urine Glucose (UA) Neg mg/dL (Negative) 03/09/21 04:10 Urine Ketones Neg mg/dL (Negative) 03/09/21 04:10 Urine Blood Mod (Negative) 03/09/21 04:10 Urine Nitrite Neg (Negative) 03/09/21 04:10 Urine Bilirubin Neg (Negative) 03/09/21 04:10 Urine Urobilinogen 2.0 mg/dL (<2.0) 03/09/21 04:10 Ur Leukocyte Esterase Neg (Negative) 03/09/21 04:10 Urine WBC (Auto) 4.0 /HPF (0.0-6.0) 03/09/21 04:10 Urine RBC (Auto) 1.0 /HPF (0.0-6.0) 03/09/21 04:10 Urine Bacteria (Auto) 1+ /HPF (Negative) 03/09/21 04:10 Urine Mucus Few /HPF 03/09/21 04:10 Coronavirus (PCR) Positive (Negative) A 03/09/21 08:00 Miscellaneous Test Flexitest 1 03/16/21 13:14 Microbiology: Microbiology 03/31/21 13:30 Peripheral/Venous Blood Culture - Preliminary NO GROWTH AFTER 4 DAYS 03/31/21 14:00 Peripheral/Venous Blood Culture - Preliminary NO GROWTH AFTER 4 DAYS Good/IV: Voiding Method Indwelling Catheter Active Medications - Current Medications Current Medications: Generic Name Dose Route Start Last Admin Trade Name Freq PRN Reason Stop Dose Admin Acetaminophen 650 mg 03/09/21 01:26 04/04/21 08:35 Acetaminophen 325 Mg Tab PO 650 mg Q4H PRN Administration Pain MILD(1-3)/Fever >100.5/RAYO Albuterol 2.5 mg 03/09/21 01:26 03/18/21 21:06 Albuterol 2.5 Mg/3 Ml Nebu IH 2.5 mg Q4HRT PRN Administration Shortness Of Breath Amlodipine Besylate 5 mg 03/30/21 10:00 04/04/21 10:03 Amlodipine 5 Mg Tab PO 5 mg QDAY BLANCA Administration Arformoterol Tartrate 15 mcg 03/11/21 20:00 04/04/21 08:09 Arformoterol 15 Mcg/2 Ml Nebu IH 15 mcg Q12HRT BLANCA Administration Bisacodyl 10 mg 03/26/21 13:43 03/26/21 13:51 Bisacodyl 10 Mg Rect Supp DC 10 mg QDAY PRN Administration Constipation Budesonide 0.25 mg 03/11/21 20:00 04/04/21 08:09 Budesonide 0.25 Mg/2 Ml Nebu IH 0.25 mg Q12HRT BLANCA Administration Chlordiazepoxide HCl 75 mg 03/22/21 18:00 04/04/21 05:02 Chlordiazepoxide 25 Mg Cap PO 75 mg Q6HR BLANCA Administration Dextrose 0 ml 03/20/21 10:52 Dextrose 10% *Hypoglycemia IV PRN PRN Hypoglycemia Doxazosin Mesylate 1 mg 03/23/21 14:00 04/04/21 10:02 Doxazosin 1 Mg Tab PO 1 mg QDAY BLANCA Administration Enoxaparin Sodium 30 mg 04/01/21 10:00 04/04/21 10:15 Enoxaparin 30 Mg/0.3 Ml Inj SUB-Q 30 mg Q12HR BLANCA Administration Famotidine 20 mg 03/12/21 22:00 04/04/21 10:03 Famotidine 20 Mg Tab FEEDTUBE 20 mg BID BLANCA Administration Fentanyl 1 applic 03/31/21 15:00 04/03/21 10:36 Fentanyl 75 Mcg/Hr Patch 72hr TD 1 applic Q3D BLANCA Administration Furosemide 20 mg 03/30/21 18:00 04/04/21 10:04 Furosemide 20 Mg/2 Ml Inj IV 04/04/21 17:59 20 mg QDAY BLANCA Administration Hydralazine HCl 50 mg 03/23/21 14:26 04/04/21 05:02 Hydralazine 25 Mg Tab PO 50 mg Q8HR BLANCA Administration Hydrophilic Ointment 1 applic 03/10/21 15:39 Lip Therapy Vaseline TP Q2HR PRN Dry Lips Insulin Glargine 15 units 03/29/21 22:00 04/03/21 22:03 Insulin Glargine 100 Units/Ml SUB-Q 15 units QHS BLANCA Administration Insulin Human Lispro 0 unit 03/11/21 18:00 04/04/21 11:43 Insulin Lispro 100 Unit/Ml SUB-Q 3 unit Q6HR [facility] Administration Protocol Metoprolol Tartrate 12.5 mg 03/21/21 22:00 04/04/21 10:03 Metoprolol Tartrate 25 Mg Tab PO 12.5 mg BID BLANCA Administration Midazolam HCl 2 mg 03/15/21 08:49 04/04/21 02:19 Midazolam 2 Mg/2 Ml Inj IV 2 mg Q2H PRN Administration VENT SYNCHRONY Multi-Ingred Cream/Lotion/Oil/Oint 1 applic 03/10/21 15:39 Mineral Oil/Petrolatum, White Ophth Oint 3.5 Gm OU Q4HR PRN Dry Eye(s) Ondansetron HCl 4 mg 03/09/21 01:26 Ondansetron 4 Mg/2 Ml Inj IV Q8H PRN Nausea And Vomiting Oxycodone HCl 5 mg 03/30/21 12:14 03/31/21 07:45 Oxycodone 5 Mg Tab PO 5 mg Q6H PRN Administration Pain, Moderate (4-6) Phenyleph/Shark Oil/Min Oil/Petrol 1 applic 03/22/21 17:35 03/31/21 18:20 Pe/Mo/Pet,Wh 10 Applic/28 Gm Tube DC 1 applic Q6HR PRN Administration Hemorrhoids Polyethylene Glycol 17 gm 04/02/21 10:00 04/04/21 10:04 Polyethylene Glycol 3350 17 Gm Powder FEEDTUBE 17 gm QDAY BLANCA Administration Quetiapine Fumarate 200 mg 04/04/21 22:00 Quetiapine 200 Mg Tab PO BID BLANCA Senna/Docusate Sodium 2 tab 04/02/21 10:00 04/04/21 10:04 Sennosides/Docusate Sodium 8.6/50 Mg Tab FEEDTUBE 2 tab BID BLANCA Administration Sodium Chloride 10 ml 03/09/21 10:00 04/04/21 10:15 Sodium Chloride 0.9% 10 Ml Flush Syringe IV 10 ml BID BLANCA Administration Sodium Chloride 10 ml 03/09/21 01:26 04/02/21 21:13 Sodium Chloride 0.9% 10 Ml Flush Syringe IV 10 ml PRN PRN Administration LINE FLUSH Sodium Chloride 10 ml 03/20/21 09:48 Sodium Chloride 0.9% 50 Ml Ivpb IV PRN PRN FLUSH Nutrition/Malnutrition Assess - Dietary Evaluation Nutrition/Malnutrition Findings: Nutrition Notes Start: 03/09/21 08:49 Freq: Status: Active Protocol: Document 03/31/21 14:51 BRIAN (Rec: 03/31/21 14:52 BRIAN [email or web address]) Nutrition Notes Initial or Follow up Reassessment Current Diagnosis Diabetes,Sepsis,Hypertension, Respiratory Failure Other Pertinent Diagnosis COVID-19, Bilateral Pneumonia. Current Diet TF-Glucerna 1.2 at 70 ml/hr Labs/Tests Na 140 yesterday Pertinent Medications Lasix, Reglan, Prednisone Height 5 ft 11 in Weight 122 kg [place] Body Weight (kg) 78.18 BMI 37.5 Weight Status Obese Subjective/Other Information Pt remains on vent support. Trach and PEG placed on 03/29. Per RN, pt tolerating TF at goal rate. Percent of energy/protein needs met: 82% energy 78% pro Burn Absent Trauma Absent #1 Nutrition Diagnosis Inadequate oral intake Diagnosis Progress(for reassessment Continues documentation) Is patient on ventilator? Yes Is Patient Ambulatory and/or Out of Bed No REE-([facility]-confined to bed) 0069.140 Calculation Used for Recommendations 70-80% energy needs Additional Notes Energy needs: 8361-2825 kcal/ day Pro needs 1.3g/kg adjBW: 130g/ day Fluid needs 1ml/kcal Nutrition Intervention Nutrition Support: Continue Glucerna 1.2 at 70ml/ hr with 110ml water flush q4h. Kcal 2,016 Protein (gm) 101 Carbohydrates (gm) 192 Fat (gm) 101 Fluid (mL) 1,352 Fiber (gm) 27 Goal #1 TF tolerance Goal #2 TF to meet at least 75% energy and pro needs Follow-Up By: 04/07/21 Additional Comments F/U: stable TF, vent status, wt <RAFAEL [email or web address] - Last Filed: 04/06/21 13:35> Assessment and Plan Assessment and plan: I saw and evaluated the patient. Discussed with the nurse practitioner and agree with their findings and plan as documented in this note. Hospitalist Physical - Constitutional Vitals: Temp Pulse Resp BP Pulse Ox 98.8 F 103 H 24 117/77 97 04/06/21 08:00 04/06/21 13:07 04/06/21 12:30 04/06/21 13:07 04/06/21 12:30 Results - Labs CBC & Chem 7: 04/05/21 04:15 04/05/21 04:15 Labs: Laboratory Last Values WBC 8.7 K/mm3 (4.5-11.0) 04/05/21 04:15 RBC 3.21 M/mm3 (3.65-5.03) L 04/05/21 04:15 Hgb 10.0 gm/dl (11.8-15.2) L 04/05/21 04:15 Hct 30.3 % (35.5-45.6) L 04/05/21 04:15 MCV 94 fl (84-94) 04/05/21 04:15 MCH 31 pg (28-32) 04/05/21 04:15 MCHC 33 % (32-34) 04/05/21 04:15 RDW 16.4 % (13.2-15.2) H 04/05/21 04:15 Plt Count 383 K/mm3 (140-440) 04/05/21 04:15 Lymph % (Auto) 7.6 % (13.4-35.0) L 03/31/21 13:30 [place] % (Auto) 9.5 % (0.0-7.3) H 03/31/21 13:30 Eos % (Auto) 4.1 % (0.0-4.3) 03/31/21 13:30 Baso % (Auto) 0.5 % (0.0-1.8) 03/31/21 13:30 Lymph # (Auto) 0.6 K/mm3 (1.2-5.4) L 03/31/21 13:30 [place] # (Auto) 0.7 K/mm3 (0.0-0.8) 03/31/21 13:30 Eos # (Auto) 0.3 K/mm3 (0.0-0.4) 03/31/21 13:30 Baso # (Auto) 0.0 K/mm3 (0.0-0.1) 03/31/21 13:30 Add Manual Diff Complete 03/10/21 04:29 Total Counted 100 03/10/21 04:29 Seg Neutrophils % 78.3 % (40.0-70.0) H 03/31/21 13:30 Seg Neuts % (Manual) 94.0 % (40.0-70.0) H 03/10/21 04:29 Band Neutrophils % 0 % 03/10/21 04:29 Lymphocytes % (Manual) 1.0 % (13.4-35.0) L 03/10/21 04:29 Reactive Lymphs % (Man) 0 % 03/10/21 04:29 Monocytes % (Manual) 5.0 % (0.0-7.3) 03/10/21 04:29 Eosinophils % (Manual) 0 % (0.0-4.3) 03/10/21 04:29 Basophils % (Manual) 0 % (0.0-1.8) 03/10/21 04:29 Metamyelocytes % 0 % 03/10/21 04:29 Myelocytes % 0 % 03/10/21 04:29 Promyelocytes % 0 % 03/10/21 04:29 Blast Cells % 0 % 03/10/21 04:29 Nucleated RBC % 3.0 % (0.0-0.9) H 03/10/21 04:29 Seg Neutrophils # 5.8 K/mm3 (1.8-7.7) 03/31/21 13:30 Seg Neutrophils # Man 19.4 K/mm3 (1.8-7.7) H 03/10/21 04:29 Band Neutrophils # 0.0 K/mm3 03/10/21 04:29 Lymphocytes # (Manual) 0.2 K/mm3 (1.2-5.4) L 03/10/21 04:29 Abs React Lymphs (Man) 0.0 K/mm3 03/10/21 04:29 Monocytes # (Manual) 1.0 K/mm3 (0.0-0.8) H 03/10/21 04:29 Eosinophils # (Manual) 0.0 K/mm3 (0.0-0.4) 03/10/21 04:29 Basophils # (Manual) 0.0 K/mm3 (0.0-0.1) 03/10/21 04:29 Metamyelocytes # 0.0 K/mm3 03/10/21 04:29 Myelocytes # 0.0 K/mm3 03/10/21 04:29 Promyelocytes # 0.0 K/mm3 03/10/21 04:29 Blast Cells # 0.0 K/mm3 03/10/21 04:29 WBC Morphology Not Reportable 03/10/21 04:29 Hypersegmented Neuts Not Reportable 03/10/21 04:29 Hyposegmented Neuts Not Reportable 03/10/21 04:29 Hypogranular Neuts Not Reportable 03/10/21 04:29 Smudge Cells Not Reportable 03/10/21 04:29 Toxic Granulation Not Reportable 03/10/21 04:29 Toxic Vacuolation Not Reportable 03/10/21 04:29 Dohle Bodies Not Reportable 03/10/21 04:29 Pelger-Huet Anomaly Not Reportable 03/10/21 04:29 Mely Rods Not Reportable 03/10/21 04:29 Platelet Estimate Consistent w auto 03/10/21 04:29 Clumped Platelets Not Reportable 03/10/21 04:29 Plt Clumps, EDTA Not Reportable 03/10/21 04:29 Large Platelets Not Reportable 03/10/21 04:29 Giant Platelets Not Reportable 03/10/21 04:29 Platelet Satelliting Not Reportable 03/10/21 04:29 Plt Morphology Comment Not Reportable 03/10/21 04:29 RBC Morphology Normal 03/10/21 04:29 Dimorphic RBCs Not Reportable 03/10/21 04:29 Polychromasia Not Reportable 03/10/21 04:29 Hypochromasia Not Reportable 03/10/21 04:29 Poikilocytosis Not Reportable 03/10/21 04:29 Anisocytosis Not Reportable 03/10/21 04:29 Microcytosis Not Reportable 03/10/21 04:29 Macrocytosis Not Reportable 03/10/21 04:29 Spherocytes Not Reportable 03/10/21 04:29 Pappenheimer Bodies Not Reportable 03/10/21 04:29 Sickle Cells Not Reportable 03/10/21 04:29 Target Cells Not Reportable 03/10/21 04:29 Tear Drop Cells Not Reportable 03/10/21 04:29 Ovalocytes Not Reportable 03/10/21 04:29 Helmet Cells Not Reportable 03/10/21 04:29 [place] Bodies Not Reportable 03/10/21 04:29 [place] Rings Not Reportable 03/10/21 04:29 [place] Cells Not Reportable 03/10/21 04:29 Bite Cells Not Reportable 03/10/21 04:29 Crenated Cell Not Reportable 03/10/21 04:29 Elliptocytes Not Reportable 03/10/21 04:29 Acanthocytes (Spur) Not Reportable 03/10/21 04:29 Rouleaux Not Reportable 03/10/21 04:29 Hemoglobin C Crystals Not Reportable 03/10/21 04:29 Schistocytes Not Reportable 03/10/21 04:29 Malaria parasites Not Reportable 03/10/21 04:29 Shaheen Bodies Not Reportable 03/10/21 04:29 Hem Pathologist Commnt No 03/10/21 04:29 PT 13.0 Sec. (12.2-14.9) 03/29/21 04:50 INR 0.88 (0.87-1.13) 03/29/21 04:50 APTT 28.0 Sec. (24.2-36.6) 03/08/21 20:24 D-Dimer 1359.12 ng/mlDDU (0-234) H 03/17/21 04:40 ABG pH 7.341 pH Units (7.350-7.450) L 04/06/21 11:50 POC ABG pCO2 57.4 mmHg (32.0-48.0) H 04/06/21 04:49 ABG pCO2 73.5 mm Hg 04/06/21 11:50 POC ABG pO2 55.1 mmHg (83-108) L 04/06/21 04:49 ABG pO2 108.9 mm Hg (80.0-90.0) H 04/06/21 11:50 POC ABG HCO3 36.2 04/06/21 04:49 ABG HCO3 38.9 mmol/L (20.0-26.0) H 04/06/21 11:50 ABG O2 Saturation 97.4 % (95.0-99.0) 04/06/21 11:50 ABG O2 Content 15.6 (0.0-44) 04/06/21 11:50 POC ABG Base Excess 10.0 04/06/21 04:49 ABG Base Excess 10.6 mmol/L (-2.0-3.0) H 04/06/21 11:50 ABG Hemoglobin 11.5 gm/dl (14.0-18.0) L 04/06/21 11:50 ABG Oxyhemoglobin 87.5 (94-98) L 04/06/21 04:49 ABG Carboxyhemoglobin 1.5 % (0.0-5.0) 04/06/21 11:50 ABG Methemoglobin 0.7 % (0.0-1.5) 04/06/21 11:50 ABG Sodium 134.2 mmol/L (136.0-145.0) L 03/12/21 21:54 ABG Potassium 4.9 mmol/L (3.40-4.50) H 03/12/21 21:54 ABG Chloride 99.0 mmol/L (98-107) 03/12/21 21:54 ABG Glucose 306 mg/dL (65-95) H 03/12/21 21:54 Oxyhemoglobin 95.3 % (95.0-99.0) 04/06/21 11:50 Carboxyhemoglobin 0.8 (0.5-1.5) 04/06/21 04:49 FiO2 70 % 04/06/21 11:50 FiO2 % 40.0 04/06/21 04:49 Sodium 138 mmol/L (137-145) 04/05/21 04:15 Potassium 4.6 mmol/L (3.6-5.0) 04/05/21 04:15 Chloride 97.6 mmol/L (98-107) L 04/05/21 04:15 Carbon Dioxide 32 mmol/L (22-30) H 04/05/21 04:15 Anion Gap 13 mmol/L 04/05/21 04:15 BUN 17 mg/dL (9-20) 04/05/21 04:15 Creatinine 0.5 mg/dL (0.8-1.3) L 04/05/21 04:15 Estimated GFR > 60 ml/min 04/05/21 04:15 BUN/Creatinine Ratio 34 % 04/05/21 04:15 Glucose 147 mg/dL (75-100) H 04/05/21 04:15 POC Glucose 171 mg/dL (70-105) H 04/06/21 11:42 Lactic Acid 1.90 mmol/L (0.7-2.0) 03/08/21 23:51 Calcium 8.7 mg/dL (8.4-10.2) 04/05/21 04:15 Phosphorus 2.90 mg/dL (2.5-4.5) 04/05/21 04:15 Magnesium 2.00 mg/dL (1.7-2.3) 04/05/21 04:15 Ferritin 976.4 ng/mL (30.0-300.0) H 03/15/21 04:00 Total Bilirubin 0.20 mg/dL (0.1-1.2) 03/12/21 08:03 AST 10 units/L (5-40) 03/12/21 08:03 ALT 16 units/L (7-56) 03/12/21 08:03 Alkaline Phosphatase 77 units/L (35-129) 03/12/21 08:03 Lactate Dehydrogenase 630 units/L (91-180) H 03/15/21 06:06 C-Reactive Protein 0.40 mg/dL (0.00-1.30) 03/17/21 04:40 NT-Pro-B Natriuret Pep 1053 pg/mL (0-900) H 03/08/21 20:24 Total Protein 6.0 g/dL (6.3-8.2) L 03/12/21 08:03 Albumin 2.9 g/dL (3.9-5) L 03/12/21 08:03 Albumin/Globulin Ratio 0.9 % 03/12/21 08:03 Triglycerides 305 mg/dL (2-149) H 03/22/21 07:26 Procalcitonin 0.17 ng/mL (<0.15) 04/01/21 07:16 Arterial Blood Glucose 306 mg/dL (65-95) H 03/12/21 21:54 Arterial Blood Ionized Calcium 5.0 mg/dL (4.6-5.3) 03/12/21 21:54 Urine Color Yellow (Yellow) 03/09/21 04:10 Urine Turbidity Slightly-cloudy (Clear) 03/09/21 04:10 Urine pH 5.0 (5.0-7.0) 03/09/21 04:10 Ur Specific [place] 1.041 (1.003-1.030) H 03/09/21 04:10 Urine Protein 100 mg/dl mg/dL (Negative) 03/09/21 04:10 Urine Glucose (UA) Neg mg/dL (Negative) 03/09/21 04:10 Urine Ketones Neg mg/dL (Negative) 03/09/21 04:10 Urine Blood Mod (Negative) 03/09/21 04:10 Urine Nitrite Neg (Negative) 03/09/21 04:10 Urine Bilirubin Neg (Negative) 03/09/21 04:10 Urine Urobilinogen 2.0 mg/dL (<2.0) 03/09/21 04:10 Ur Leukocyte Esterase Neg (Negative) 03/09/21 04:10 Urine WBC (Auto) 4.0 /HPF (0.0-6.0) 03/09/21 04:10 Urine RBC (Auto) 1.0 /HPF (0.0-6.0) 03/09/21 04:10 Urine Bacteria (Auto) 1+ /HPF (Negative) 03/09/21 04:10 Urine Mucus Few /HPF 03/09/21 04:10 Coronavirus (PCR) Positive (Negative) A 03/09/21 08:00 Miscellaneous Test Flexitest 1 03/16/21 13:14 Microbiology: Microbiology 03/31/21 13:30 Peripheral/Venous Blood Culture - Final NO GROWTH AFTER 5 DAYS 03/31/21 14:00 Peripheral/Venous Blood Culture - Final NO GROWTH AFTER 5 DAYS Good/IV: Voiding Method Indwelling Catheter Active Medications - Current Medications Current Medications: Generic Name Dose Route Start Last Admin Trade Name Freq PRN Reason Stop Dose Admin Acetaminophen 650 mg 03/09/21 01:26 04/05/21 16:16 Acetaminophen 325 Mg Tab PO 650 mg Q4H PRN Administration Pain MILD(1-3)/Fever >100.5/RAYO Albuterol 2.5 mg 03/09/21 01:26 03/18/21 21:06 Albuterol 2.5 Mg/3 Ml Nebu IH 2.5 mg Q4HRT PRN Administration Shortness Of Breath Amlodipine Besylate 5 mg 03/30/21 10:00 04/06/21 09:15 Amlodipine 5 Mg Tab PO 5 mg QDAY BLANCA Administration Arformoterol Tartrate 15 mcg 03/11/21 20:00 04/06/21 08:30 Arformoterol 15 Mcg/2 Ml Nebu IH 15 mcg Q12HRT BLANCA Administration Bisacodyl 10 mg 03/26/21 13:43 03/26/21 13:51 Bisacodyl 10 Mg Rect Supp DC 10 mg QDAY PRN Administration Constipation Budesonide 0.5 mg 04/06/21 20:00 Budesonide 0.5 Mg/2 Ml Nebu IH Q12HRT BLANCA Chlordiazepoxide HCl 75 mg 03/22/21 18:00 04/06/21 13:10 Chlordiazepoxide 25 Mg Cap PO 75 mg Q6HR BLANCA Administration Dextrose 0 ml 03/20/21 10:52 Dextrose 10% *Hypoglycemia IV PRN PRN Hypoglycemia Doxazosin Mesylate 1 mg 04/05/21 22:00 04/06/21 09:15 Doxazosin 1 Mg Tab PO 1 mg BID BLANCA Administration Enoxaparin Sodium 30 mg 04/01/21 10:00 04/06/21 09:15 Enoxaparin 30 Mg/0.3 Ml Inj SUB-Q 30 mg Q12HR BLANCA Administration Famotidine 20 mg 03/12/21 22:00 04/06/21 11:37 Famotidine 20 Mg Tab FEEDTUBE 20 mg BID BLANCA Administration Fentanyl 1 applic 03/31/21 15:00 04/06/21 11:20 Fentanyl 75 Mcg/Hr Patch 72hr TD 1 applic Q3D BLANCA Administration Fentanyl 50 mcg 04/04/21 17:00 04/06/21 02:44 Fentanyl 100 Mcg/2 Ml Inj IV 50 mcg Q10MIN PRN Administration ANALGESIA Furosemide 20 mg 04/06/21 18:00 Furosemide 20 Mg/2 Ml Inj IV 04/07/21 18:01 0600,1800 BLANCA Haloperidol Lactate 5 mg 04/04/21 15:09 04/04/21 15:18 Haloperidol Lactate 5 Mg/1 Ml Inj IV 04/09/21 15:08 5 mg Q6H PRN Administration Agitation Hydralazine HCl 50 mg 03/23/21 14:26 04/06/21 13:07 Hydralazine 25 Mg Tab PO 50 mg Q8HR BLANCA Administration Hydrophilic Ointment 1 applic 03/10/21 15:39 Lip Therapy Vaseline TP Q2HR PRN Dry Lips Fentanyl Citrate 2,000 mcg in 100 mls @ 6.1 mls/hr 04/04/21 17:00 04/06/21 05:09 Fentanyl Drip Premix IV 2 mcg/kg/hr TITR BLANCA 12.2 mls/hr Administration Protocol 1 MCG/KG/HR Insulin Glargine 15 units 03/29/21 22:00 04/05/21 21:08 Insulin Glargine 100 Units/Ml SUB-Q 15 units QHS [facility] Administration Insulin Human Lispro 0 unit 03/11/21 18:00 04/06/21 12:00 Insulin Lispro 100 Unit/Ml SUB-Q 3 unit Q6HR [facility] Administration Protocol Metoprolol Tartrate 12.5 mg 03/21/21 22:00 04/06/21 09:15 Metoprolol Tartrate 25 Mg Tab PO 12.5 mg BID BLANCA Administration Midazolam HCl 2 mg 03/15/21 08:49 04/06/21 04:04 Midazolam 2 Mg/2 Ml Inj IV 2 mg Q2H PRN Administration VENT SYNCHRONY Multi-Ingred Cream/Lotion/Oil/Oint 1 applic 03/10/21 15:39 Mineral Oil/Petrolatum, White Ophth Oint 3.5 Gm OU Q4HR PRN Dry Eye(s) Ondansetron HCl 4 mg 03/09/21 01:26 Ondansetron 4 Mg/2 Ml Inj IV Q8H PRN Nausea And Vomiting Oxycodone HCl 5 mg 04/05/21 14:00 04/06/21 13:07 Oxycodone 5 Mg Tab PO 5 mg TID BLANCA Administration Phenyleph/Shark Oil/Min Oil/Petrol 1 applic 03/22/21 17:35 04/06/21 04:04 Pe/Mo/Pet,Wh 10 Applic/28 Gm Tube DC 1 applic Q6HR PRN Administration Hemorrhoids Polyethylene Glycol 17 gm 04/02/21 10:00 04/06/21 11:36 Polyethylene Glycol 3350 17 Gm Powder FEEDTUBE 17 gm QDAY BLANCA Administration Quetiapine Fumarate 200 mg 04/04/21 22:00 04/06/21 11:38 Quetiapine 200 Mg Tab PO 200 mg BID BLANCA Administration Quetiapine Fumarate 50 mg 04/05/21 14:00 04/06/21 11:39 Quetiapine 25 Mg Tab PO 50 mg BID BLANCA Administration Senna/Docusate Sodium 2 tab 04/02/21 10:00 04/06/21 11:37 Sennosides/Docusate Sodium 8.6/50 Mg Tab FEEDTUBE 2 tab BID BLANCA Administration Sodium Chloride 10 ml 03/09/21 10:00 04/06/21 09:15 Sodium Chloride 0.9% 10 Ml Flush Syringe IV 10 ml BID BLANCA Administration Sodium Chloride 10 ml 03/09/21 01:26 04/02/21 21:13 Sodium Chloride 0.9% 10 Ml Flush Syringe IV 10 ml PRN PRN Administration LINE FLUSH Sodium Chloride 10 ml 03/20/21 09:48 Sodium Chloride 0.9% 50 Ml Ivpb IV PRN PRN FLUSH Nutrition/Malnutrition Assess - Dietary Evaluation Nutrition/Malnutrition Findings: Nutrition Notes Start: 03/09/21 08:49 Freq: Status: Active Protocol: Document 03/31/21 14:51 BRIAN (Rec: 03/31/21 14:52 BRIAN [email or web address]) Nutrition Notes Initial or Follow up Reassessment Current Diagnosis Diabetes,Sepsis,Hypertension, Respiratory Failure Other Pertinent Diagnosis COVID-19, Bilateral Pneumonia. Current Diet TF-Glucerna 1.2 at 70 ml/hr Labs/Tests Na 140 yesterday Pertinent Medications Lasix, Reglan, Prednisone Height 5 ft 11 in Weight 122 kg [place] Body Weight (kg) 78.18 BMI 37.5 Weight Status Obese Subjective/Other Information Pt remains on vent support. Trach and PEG placed on 2/2. Per RN, pt tolerating TF at goal rate. Percent of energy/protein needs met: 82% energy 78% pro Burn Absent Trauma Absent #1 Nutrition Diagnosis Inadequate oral intake Diagnosis Progress(for reassessment Continues documentation) Is patient on ventilator? Yes Is Patient Ambulatory and/or Out of Bed No REE-([facility]-confined to bed) 2449.140 Calculation Used for Recommendations 70-80% energy needs Additional Notes Energy needs: 2217-6748 kcal/ day Pro needs 1.3g/kg adjBW: 130g/ day Fluid needs 1ml/kcal Nutrition Intervention Nutrition Support: Continue Glucerna 1.2 at 70ml/ hr with 110ml water flush q4h. Kcal 2,016 Protein (gm) 101 Carbohydrates (gm) 192 Fat (gm) 101 Fluid (mL) 1,352 Fiber (gm) 27 Goal #1 TF tolerance Goal #2 TF to meet at least 75% energy and pro needs Follow-Up By: 04/07/21 Additional Comments F/U: stable TF, vent status, wt
[2021-04-04] MEDS: HALOPERIDOL LACTATE 5 MG/1 ML INJ IV PRN (15:18)
--- NOTE | 2021-04-04 15:27 | Progress Note ---
Assessment and Plan Cultures: SARS CoV2 PCR: positive 03/08/2021 blood culture: no growth 03/10/2021 sputum culture: Usual respiratory marlyn 03/16/2021 blood culture: In process 03/18/2021 sputum culture: Stenotrophomonas 03/31/2021 Blood culture: no growth 03/31/2021 tracheal aspirate: usual resp marlyn A/P: 61-year-old male with diabetes, hypertension admitted to the hospital with complaints of shortness of breath and feeling weak for the last 1 week: #Sepsis secondary to bilateral pneumonia: secondary to COVID-19. Completed rem desivir, s/p Actemra, steroids. Completed abx for bacterial pneumonia, Stenotrophomonas. #Acute hypoxic respiratory failure: s/p trach and PEG. #DM #HTN Recs: -monitor off abx -completed steroids Sangita Nicole MD, FACP, [facility] O: [phone] F: [phone] Subjective Date of service: 04/04/21 Principal diagnosis: COVID-19 infection; DM II; Bilateral pneumonia; Obesity; HTN Interval history: No fever, low grade temp x 1. Remains on the vent via trach. Objective - Exam Narrative Exam: Physical Exam Constitutional: sedated, on the vent Head, Ears, Nose: Normocephalic, atraumatic. External ears, nose normal Eyes: Conjunctivae/corneas clear. No icterus. No ptosis. Neck: trach + Cardiovascular: S1, S2 + Respiratory: AE fair GI: Soft, bowel sounds +, PEG + Musculoskeletal: No pedal edema, no cyanosis. Skin: No rash or abscess Hem/Lymphatic: No palpable cervical or supraclavicular nodes. No lymphangitis Psych: no agitation Neurological: sedated, on the vent, exam limited - Constitutional Vitals: Vital Signs Temp Pulse Resp BP Pulse Ox 99.1 F 123 H 32 H 187/88 94 04/04/21 11:45 04/04/21 15:17 04/04/21 13:31 04/04/21 15:17 04/04/21 13:31 Temperature -Last 24 Hours Temperature 99.1 F Temperature 100.6 F Temperature 99.8 F Temperature 98.6 F Temperature 98.6 F Temperature 99.1 F - Labs CBC & Chem 7: 04/04/21 04:33 04/04/21 04:33 Labs: Abnormal lab results 04/03/21 04/03/21 04/04/21 Range/Units 16:19 19:45 00:21 WBC (4.5-11.0) K/mm3 RBC (3.65-5.03) M/mm3 Hgb (11.8-15.2) gm/dl Hct (35.5-45.6) % RDW (13.2-15.2) % Carbon Dioxide (22-30) mmol/L Creatinine (0.8-1.3) mg/dL Glucose (75-100) mg/dL POC Glucose 180 H 136 H 140 H (70-105) mg/dL 04/04/21 04/04/21 04/04/21 Range/Units 04:33 04:33 05:16 WBC 13.1 H (4.5-11.0) K/mm3 RBC 3.49 L (3.65-5.03) M/mm3 Hgb 10.3 L (11.8-15.2) gm/dl Hct 32.7 L (35.5-45.6) % RDW 16.1 H (13.2-15.2) % Carbon Dioxide 31 H (22-30) mmol/L Creatinine 0.4 L (0.8-1.3) mg/dL Glucose 153 H (75-100) mg/dL POC Glucose 152 H (70-105) mg/dL 04/04/21 Range/Units 11:39 WBC (4.5-11.0) K/mm3 RBC (3.65-5.03) M/mm3 Hgb (11.8-15.2) gm/dl Hct (35.5-45.6) % RDW (13.2-15.2) % Carbon Dioxide (22-30) mmol/L Creatinine (0.8-1.3) mg/dL Glucose (75-100) mg/dL POC Glucose 154 H (70-105) mg/dL
[2021-04-04] MEDS: INSULIN GLARGINE 100 UNITS/ML SUB-Q SCH (21:07)
[2021-04-04] MEDS: QUEtiapine 200 MG TAB PO SCH (21:11)
[2021-04-05] MEDS: INSULIN LISPRO 100 UNIT/ML SUB-Q SCH ×4 (00:54→19:14)
[2021-04-05] MEDS: chlordiazePOXIDE 25 MG CAP PO SCH ×3 (01:14→14:03)
[2021-04-05] MEDS: fentaNYL DRIP Premix 2,000 MCG/100 ML BAG IV SCH ×2 (04:40→14:05)
[2021-04-05 05:17] LABS: Hematocrit 30.3 % (35.5-45.6); Mean Corpuscular HGB Conc 33 % (32-34); Mean Corpuscular Volume 94 fl (84-94); Platelet Count 383 K/mm3 (140-440); Red Blood Count 3.21 M/mm3 (3.65-5.03); Red Cell Distribution Width 16.4 % (13.2-15.2)
[2021-04-05 05:27] LABS: Blood Urea Nitrogen 17 mg/dL (9-20); Calcium 8.7 mg/dL (8.4-10.2); Hemolysis Index 22
[2021-04-05 05:31] LABS: BUN/Creatinine Ratio 34
[2021-04-05] MEDS: hydrALAZINE 25 MG TAB PO SCH ×3 (05:49→21:02)
[2021-04-05] MEDS: MIDAZOLAM 2 MG/2 ML INJ IV PRN (06:46)
[2021-04-05] MEDS: fentaNYL 100 MCG/2 ML INJ IV PRN (08:32)
[2021-04-05] MEDS: ARFORMOTEROL 15 MCG/2 ML NEBU IH SCH ×2 (08:43→20:02)
[2021-04-05] MEDS: BUDESONIDE 0.25 MG/2 ML NEBU IH SCH ×2 (08:44→20:02)
[2021-04-05] MEDS: DOXAZOSIN 1 MG TAB PO SCH ×2 (09:15→21:02)
[2021-04-05] MEDS: amLODIPine 5 MG TAB PO SCH (09:15)
[2021-04-05] MEDS: ENOXAPARIN 30 MG/0.3 ML INJ SUB-Q SCH ×2 (09:15→21:03)
[2021-04-05] MEDS: SENNOSIDES/DOCUSATE SODIUM 8.6/50 MG TAB FEEDTUBE SCH ×2 (09:15→21:02)
[2021-04-05] MEDS: POLYETHYLENE GLYCOL 3350 17 GM POWDER FEEDTUBE SCH (09:15)
[2021-04-05] MEDS: QUEtiapine 200 MG TAB PO SCH ×2 (09:16→21:03)
[2021-04-05] MEDS: METOPROLOL TARTRATE 25 MG TAB PO SCH ×2 (09:16→21:03)
[2021-04-05] MEDS: FAMOTIDINE 20 MG TAB FEEDTUBE SCH ×2 (09:16→21:02)
--- NOTE | 2021-04-05 10:42 | Progress Note ---
Assessment and Plan Cultures: SARS CoV2 PCR: positive 03/08/2021 blood culture: no growth 03/10/2021 sputum culture: Usual respiratory marlyn 03/16/2021 blood culture: In process 03/18/2021 sputum culture: Stenotrophomonas 03/31/2021 Blood culture: no growth 03/31/2021 tracheal aspirate: usual resp marlyn A/P: 61-year-old male with diabetes, hypertension admitted to the hospital with complaints of shortness of breath and feeling weak for the last 1 week: #Sepsis secondary to bilateral pneumonia: secondary to COVID-19. Completed rem desivir, s/p Actemra, steroids. Completed abx for bacterial pneumonia, Stenotrophomonas. #Acute hypoxic respiratory failure: s/p trach and PEG. #DM #HTN Recs: -WBC normal, monitor off abx Sangita Nicole MD, FACP, [facility] O: [phone] F: [phone] Subjective Date of service: 04/05/21 Principal diagnosis: COVID-19 infection; DM II; Bilateral pneumonia; Obesity; HTN Interval history: No fever, intermittent low grade temps. Remains on the vent via trach. Objective - Exam Narrative Exam: Physical Exam Constitutional: sedated, on the vent Head, Ears, Nose: Normocephalic, atraumatic. External ears, nose normal Eyes: Conjunctivae/corneas clear. No icterus. No ptosis. Neck: trach + Cardiovascular: S1, S2 + Respiratory: AE fair GI: Soft, bowel sounds +, PEG + Musculoskeletal: No pedal edema, no cyanosis. Skin: No rash or abscess Hem/Lymphatic: No palpable cervical or supraclavicular nodes. No lymphangitis Psych: no agitation Neurological: sedated, on the vent, exam limited - Constitutional Vitals: Vital Signs Temp Pulse Resp BP Pulse Ox 100.3 F H 123 H 39 H 141/67 95 04/05/21 08:00 04/05/21 09:30 04/05/21 09:30 04/05/21 09:30 04/05/21 09:30 Temperature -Last 24 Hours Temperature 100.3 F Temperature 98.5 F Temperature 99.0 F Temperature 98.8 F Temperature 100 F Temperature 99.1 F - Labs CBC & Chem 7: 04/05/21 04:15 04/05/21 04:15 Labs: Abnormal lab results 04/04/21 04/04/21 04/04/21 Range/Units 11:39 17:22 20:14 RBC (3.65-5.03) M/mm3 Hgb (11.8-15.2) gm/dl Hct (35.5-45.6) % RDW (13.2-15.2) % Chloride (98-107) mmol/L Carbon Dioxide (22-30) mmol/L Creatinine (0.8-1.3) mg/dL Glucose (75-100) mg/dL POC Glucose 154 H 198 H 161 H (70-105) mg/dL 04/04/21 04/05/21 04/05/21 Range/Units 23:16 04:15 04:15 RBC 3.21 L (3.65-5.03) M/mm3 Hgb 10.0 L (11.8-15.2) gm/dl Hct 30.3 L (35.5-45.6) % RDW 16.4 H (13.2-15.2) % Chloride 97.6 L (98-107) mmol/L Carbon Dioxide 32 H (22-30) mmol/L Creatinine 0.5 L (0.8-1.3) mg/dL Glucose 147 H (75-100) mg/dL POC Glucose 139 H (70-105) mg/dL 04/05/21 Range/Units 05:34 RBC (3.65-5.03) M/mm3 Hgb (11.8-15.2) gm/dl Hct (35.5-45.6) % RDW (13.2-15.2) % Chloride (98-107) mmol/L Carbon Dioxide (22-30) mmol/L Creatinine (0.8-1.3) mg/dL Glucose (75-100) mg/dL POC Glucose 145 H (70-105) mg/dL
--- NOTE | 2021-04-05 13:12 | Progress Note ---
Assessment and Plan Acute hypoxemic respiratory failure, on continuous noninvasive ventilation COVID-19 infection Bilateral pneumonia History of diabetes Obesity Hypertension Leukocytosis Possible venous thromboembolic phenomena with significantly elevated D-dimers DM II Elevated serum inflammatory markers to include CRP levels, ferritin and LDH - increased Seroquel to 250 mg po bid - increased Doxazosin to bid dosing - scheduled Lortabs tid X 7 days to spoare IV sedation - AB's per ID recommendations - follow clinically, monitor WBC / Fevers - continue LTAC evaluation - continue care as below otherwise; - continue Daily SAT and SBT assessment as tolerated - continue to wean supplemental oxygen for target O2 sat's > 90% acutely - VAP bundle addressed - continue lung protective strategies - continue bronchodilators with routiune trach care and pulmonary hygiene per RT - wean per pulmonary driven protocols otherwise - continue accuchecks with glycemic control per SSI (While critically ill target blood glucose of 140-180 mg/dL; avoid hypoglycemia) - sedation prn for target RASS 0 to -1 - avoid nephrotoxins, renally dose all medications - avoid benzodiazepine's, reduce the possibility of delirium - AB's per ID rec's - prn analgesia per pain score - Maintenance of sleep-wake cycle, avoid delirium - G.I. & VTE prophylaxis - PT/OT/ROM exercises - mobility protocols for pressure ulcer prophylaxis - Monitor hemodynamics closely - continue other care per attending / other consultants - discharge planning ongoing concurrently COVID SPECIFIC INTERVENTIONS - Remdesivir as per ID/Pulmonary developed protocols (received) - continue systemic steroids for severe COVID-19 infection empirically (Decadron) - follow repeat COVID tests results - zinc and vitamin C supplementation - Monitor inflammatory markers per facility protocol - ferritin, Ddimer, CRP - therapeutic anticoagulation per system Protocol based on d-dimer and clinical considerations (treatment dose) - contact and airborne isolation discontinued .... Re-evaluate in am & prn CONDITION: CRITICAL PROGNOSIS: GUARDED CODE STATUS: FULL CODE The high probability of a clinically significant, sudden or life-threatening deterioration of the [respiratory, cardiovascular & hematologic] system(s) required my full and direct attention, intervention and personal management. The aggregate critical care time was [34] minutes without overlap. Time includes spent on; [x] Data Review and interpretation [x] Patient assessment and monitoring of vital signs [x] Documentation [x] Medication orders and management Subjective Date of service: 04/05/21 Principal diagnosis: COVID-19 infection; DM II; Bilateral pneumonia; Obesity; HTN Interval history: Patient is seen today for: Acute hypoxemic respiratory failure; COVID-19 infection; DM II; Bilateral pneumonia; Obesity; HTN Seen and examined at bedside; 24hour events reviewed; nursing and respiratory care staff consulted; no adverse overnight events reported to me; resting in bed; remains on MVS; still with intermittent episodes of agitation with concomitant desaturation's; no emesis or overt aspiration and no gross bleeding Objective Vital Signs - 12hr 04/05/21 04/05/21 04/05/21 01:15 01:31 01:45 Temperature Pulse Rate 106 H 105 H 104 H Pulse Rate [ Bilateral Throughout] Pulse Rate [ From Monitor] Respiratory 32 H 28 H 28 H Rate Respiratory Rate [Bilateral Throughout] Blood Pressure 136/72 136/72 136/72 O2 Sat by Pulse 93 94 94 Oximetry O2 Sat by Pulse Oximetry [ Assessment] 04/05/21 04/05/21 04/05/21 02:00 02:15 02:31 Temperature Pulse Rate 104 H 104 H 104 H Pulse Rate [ Bilateral Throughout] Pulse Rate [ From Monitor] Respiratory 28 H 29 H 26 H Rate Respiratory Rate [Bilateral Throughout] Blood Pressure 125/71 125/71 125/71 O2 Sat by Pulse 94 94 94 Oximetry O2 Sat by Pulse Oximetry [ Assessment] 04/05/21 04/05/21 04/05/21 02:45 03:00 03:15 Temperature Pulse Rate 105 H 105 H 106 H Pulse Rate [ Bilateral Throughout] Pulse Rate [ From Monitor] Respiratory 27 H 27 H 28 H Rate Respiratory Rate [Bilateral Throughout] Blood Pressure 125/71 116/57 116/57 O2 Sat by Pulse 94 94 94 Oximetry O2 Sat by Pulse Oximetry [ Assessment] 04/05/21 04/05/21 04/05/21 03:31 03:45 04:00 Temperature 98.5 F Pulse Rate 104 H 104 H 104 H Pulse Rate [ Bilateral Throughout] Pulse Rate [ 105 H From Monitor] Respiratory 28 H 28 H 26 H Rate Respiratory Rate [Bilateral Throughout] Blood Pressure 116/57 116/57 115/65 O2 Sat by Pulse 94 93 92 Oximetry O2 Sat by Pulse Oximetry [ Assessment] 04/05/21 04/05/21 04/05/21 04:15 04:31 04:44 Temperature Pulse Rate 104 H 109 H 114 H Pulse Rate [ Bilateral Throughout] Pulse Rate [ From Monitor] Respiratory 26 H 32 H Rate Respiratory Rate [Bilateral Throughout] Blood Pressure 115/65 115/65 115/65 O2 Sat by Pulse 93 96 94 Oximetry O2 Sat by Pulse Oximetry [ Assessment] 04/05/21 04/05/21 04/05/21 04:45 05:01 05:15 Temperature Pulse Rate 114 H 111 H 111 H Pulse Rate [ Bilateral Throughout] Pulse Rate [ From Monitor] Respiratory 36 H 33 H 33 H Rate Respiratory Rate [Bilateral Throughout] Blood Pressure 115/65 153/76 153/76 O2 Sat by Pulse 95 95 94 Oximetry O2 Sat by Pulse Oximetry [ Assessment] 04/05/21 04/05/21 04/05/21 05:31 05:45 05:49 Temperature Pulse Rate 112 H 111 H 111 H Pulse Rate [ Bilateral Throughout] Pulse Rate [ From Monitor] Respiratory 33 H 32 H Rate Respiratory Rate [Bilateral Throughout] Blood Pressure 153/76 153/76 153/76 O2 Sat by Pulse 94 94 Oximetry O2 Sat by Pulse Oximetry [ Assessment] 04/05/21 04/05/21 04/05/21 06:00 06:15 06:31 Temperature Pulse Rate 111 H 113 H 113 H Pulse Rate [ Bilateral Throughout] Pulse Rate [ From Monitor] Respiratory 31 H 34 H 36 H Rate Respiratory Rate [Bilateral Throughout] Blood Pressure 145/79 145/79 145/79 O2 Sat by Pulse 94 94 94 Oximetry O2 Sat by Pulse Oximetry [ Assessment] 04/05/21 04/05/21 04/05/21 06:45 07:00 07:16 Temperature Pulse Rate 120 H 122 H 118 H Pulse Rate [ Bilateral Throughout] Pulse Rate [ From Monitor] Respiratory 41 H 35 H 36 H Rate Respiratory Rate [Bilateral Throughout] Blood Pressure 145/79 166/85 145/79 O2 Sat by Pulse 94 93 93 Oximetry O2 Sat by Pulse Oximetry [ Assessment] 04/05/21 04/05/21 04/05/21 07:30 07:46 08:00 Temperature 100.3 F H Pulse Rate 123 H 124 H 126 H Pulse Rate [ Bilateral Throughout] Pulse Rate [ 125 H From Monitor] Respiratory 41 H 35 H 43 H Rate Respiratory Rate [Bilateral Throughout] Blood Pressure 166/85 166/85 171/81 O2 Sat by Pulse 93 93 94 Oximetry O2 Sat by Pulse Oximetry [ Assessment] 04/05/21 04/05/21 04/05/21 08:16 08:30 08:45 Temperature Pulse Rate 126 H 124 H 124 H Pulse Rate [ Bilateral Throughout] Pulse Rate [ From Monitor] Respiratory 44 H 39 H Rate Respiratory Rate [Bilateral Throughout] Blood Pressure 171/81 162/78 162/78 O2 Sat by Pulse 94 93 94 Oximetry O2 Sat by Pulse Oximetry [ Assessment] 04/05/21 04/05/21 04/05/21 08:46 08:48 08:49 Temperature Pulse Rate 124 H Pulse Rate [ 123 H Bilateral Throughout] Pulse Rate [ From Monitor] Respiratory 40 H Rate Respiratory 37 H Rate [Bilateral Throughout] Blood Pressure 162/78 O2 Sat by Pulse 94 Oximetry O2 Sat by Pulse 94 Oximetry [ Assessment] 04/05/21 04/05/21 04/05/21 09:00 09:15 09:16 Temperature Pulse Rate 121 H 120 H 121 H Pulse Rate [ Bilateral Throughout] Pulse Rate [ From Monitor] Respiratory 31 H 29 H Rate Respiratory Rate [Bilateral Throughout] Blood Pressure 141/67 141/67 141/67 O2 Sat by Pulse 98 98 Oximetry O2 Sat by Pulse Oximetry [ Assessment] 04/05/21 04/05/21 04/05/21 09:30 09:46 10:00 Temperature Pulse Rate 123 H 114 H 113 H Pulse Rate [ Bilateral Throughout] Pulse Rate [ From Monitor] Respiratory 39 H 26 H 25 H Rate Respiratory Rate [Bilateral Throughout] Blood Pressure 141/67 141/67 131/65 O2 Sat by Pulse 95 98 98 Oximetry O2 Sat by Pulse Oximetry [ Assessment] 04/05/21 04/05/21 04/05/21 10:16 10:30 10:46 Temperature Pulse Rate 113 H 112 H 111 H Pulse Rate [ Bilateral Throughout] Pulse Rate [ From Monitor] Respiratory 25 H 26 H 25 H Rate Respiratory Rate [Bilateral Throughout] Blood Pressure 131/65 131/65 131/65 O2 Sat by Pulse 98 98 98 Oximetry O2 Sat by Pulse Oximetry [ Assessment] 04/05/21 04/05/21 04/05/21 11:00 11:16 11:30 Temperature Pulse Rate 109 H 108 H 107 H Pulse Rate [ Bilateral Throughout] Pulse Rate [ From Monitor] Respiratory 29 H 25 H 22 Rate Respiratory Rate [Bilateral Throughout] Blood Pressure 129/64 129/64 129/64 O2 Sat by Pulse 96 98 98 Oximetry O2 Sat by Pulse Oximetry [ Assessment] 04/05/21 04/05/21 04/05/21 11:46 12:00 12:16 Temperature Pulse Rate 107 H 109 H 106 H Pulse Rate [ Bilateral Throughout] Pulse Rate [ 108 H From Monitor] Respiratory 24 25 H 24 Rate Respiratory Rate [Bilateral Throughout] Blood Pressure 129/64 121/75 121/75 O2 Sat by Pulse 98 97 98 Oximetry O2 Sat by Pulse Oximetry [ Assessment] 04/05/21 04/05/21 04/05/21 12:30 12:46 13:00 Temperature Pulse Rate 107 H 105 H 104 H Pulse Rate [ Bilateral Throughout] Pulse Rate [ From Monitor] Respiratory 24 22 21 Rate Respiratory Rate [Bilateral Throughout] Blood Pressure 121/75 121/75 124/78 O2 Sat by Pulse 97 98 98 Oximetry O2 Sat by Pulse Oximetry [ Assessment] Constitutional: agitated, appears uncomfortable, other (elderly obese male with mildly increased respiratory effort at rest) Eyes: non-icteric ENT: oropharynx moist, other (+ midline tracheostomy) Neck: supple, no lymphadenopathy, no JVD, other (large circumference) Effort: mildly labored Ascultation: Bilateral: diminished breath sounds, rhonchi Percussion: Bilateral: not dull Cardiovascular: regular rate and rhythm, other (tachycardia, S1,S2) Gastrointestinal: normoactive bowel sounds, soft, non-tender, non-distended (protuberant) Integumentary: normal Extremities: no cyanosis, pulses normal, no ischemia or petechiae, edema, other Neurologic: non-focal exam (grossly), pupils equal and round, other (sedated) Psychiatric: other (unable to assess re: AMS) CBC and BMP: 04/05/21 04:15 04/05/21 04:15 ABG, PT/INR, D-dimer: ABG ABG pH 7.397 pH Units (7.350-7.450) 03/31/21 12:50 POC ABG pCO2 71.9 mmHg (32.0-48.0) H 03/12/21 21:54 ABG pCO2 58.1 mm Hg 03/31/21 12:50 POC ABG pO2 53.6 mmHg (83-108) L 03/12/21 21:54 ABG pO2 99.4 mm Hg (80.0-90.0) H 03/31/21 12:50 POC ABG HCO3 30.0 03/12/21 21:54 ABG O2 Saturation 97.3 % (95.0-99.0) 03/31/21 12:50 PT/INR, D-dimer PT 13.0 Sec. (12.2-14.9) 03/29/21 04:50 INR 0.88 (0.87-1.13) 03/29/21 04:50 D-Dimer 1359.12 ng/mlDDU (0-234) H 03/17/21 04:40 Abnormal lab findings: Abnormal Labs 03/08/21 03/08/21 03/08/21 20:24 20:24 20:24 WBC 22.6 H RBC 5.44 H Hgb 15.7 H Hct 49.2 H MCV MCHC RDW Plt Count Lymph % (Auto) [place] % (Auto) Lymph # (Auto) [place] # (Auto) Seg Neutrophils % Seg Neuts % (Manual) 83.0 H Lymphocytes % (Manual) 9.0 L Monocytes % (Manual) 8.0 H Nucleated RBC % Seg Neutrophils # Seg Neutrophils # Man 18.8 H Lymphocytes # (Manual) Monocytes # (Manual) 1.8 H PT 16.1 H INR 1.17 H D-Dimer > 72371 H ABG pH POC ABG pCO2 POC ABG pO2 ABG pO2 ABG HCO3 ABG O2 Saturation ABG Base Excess ABG Hemoglobin ABG Oxyhemoglobin ABG Sodium ABG Potassium ABG Glucose Oxyhemoglobin Sodium 136 L Potassium Chloride 93.9 L Carbon Dioxide BUN 29 H Creatinine Glucose 208 H POC Glucose Lactic Acid Calcium Phosphorus Magnesium Ferritin Lactate Dehydrogenase 624 H C-Reactive Protein 18.00 H NT-Pro-B Natriuret Pep 1053 H Total Protein Albumin Triglycerides Arterial Blood Glucose Ur Specific [place] Coronavirus (PCR) 03/08/21 03/08/21 03/09/21 20:24 20:24 04:10 WBC RBC Hgb Hct MCV MCHC RDW Plt Count Lymph % (Auto) [place] % (Auto) Lymph # (Auto) [place] # (Auto) Seg Neutrophils % Seg Neuts % (Manual) Lymphocytes % (Manual) Monocytes % (Manual) Nucleated RBC % Seg Neutrophils # Seg Neutrophils # Man Lymphocytes # (Manual) Monocytes # (Manual) PT INR D-Dimer ABG pH POC ABG pCO2 POC ABG pO2 ABG pO2 ABG HCO3 ABG O2 Saturation ABG Base Excess ABG Hemoglobin ABG Oxyhemoglobin ABG Sodium ABG Potassium ABG Glucose Oxyhemoglobin Sodium Potassium Chloride Carbon Dioxide BUN Creatinine Glucose POC Glucose Lactic Acid 2.10 H* Calcium Phosphorus Magnesium Ferritin 877.5 H Lactate Dehydrogenase C-Reactive Protein NT-Pro-B Natriuret Pep Total Protein Albumin Triglycerides Arterial Blood Glucose Ur Specific [place] 1.041 H Coronavirus (PCR) 03/09/21 03/09/21 03/09/21 07:46 08:00 13:01 WBC RBC Hgb Hct MCV MCHC RDW Plt Count Lymph % (Auto) [place] % (Auto) Lymph # (Auto) [place] # (Auto) Seg Neutrophils % Seg Neuts % (Manual) Lymphocytes % (Manual) Monocytes % (Manual) Nucleated RBC % Seg Neutrophils # Seg Neutrophils # Man Lymphocytes # (Manual) Monocytes # (Manual) PT INR D-Dimer ABG pH POC ABG pCO2 POC ABG pO2 ABG pO2 ABG HCO3 ABG O2 Saturation ABG Base Excess ABG Hemoglobin ABG Oxyhemoglobin ABG Sodium ABG Potassium ABG Glucose Oxyhemoglobin Sodium Potassium Chloride Carbon Dioxide BUN Creatinine Glucose POC Glucose 191 H 182 H Lactic Acid Calcium Phosphorus Magnesium Ferritin Lactate Dehydrogenase C-Reactive Protein NT-Pro-B Natriuret Pep Total Protein Albumin Triglycerides Arterial Blood Glucose Ur Specific [place] Coronavirus (PCR) Positive A 03/09/21 03/09/21 03/09/21 15:19 17:48 18:10 WBC RBC Hgb Hct MCV MCHC RDW Plt Count Lymph % (Auto) [place] % (Auto) Lymph # (Auto) [place] # (Auto) Seg Neutrophils % Seg Neuts % (Manual) Lymphocytes % (Manual) Monocytes % (Manual) Nucleated RBC % Seg Neutrophils # Seg Neutrophils # Man Lymphocytes # (Manual) Monocytes # (Manual) PT INR D-Dimer ABG pH POC ABG pCO2 POC ABG pO2 ABG pO2 47.3 L ABG HCO3 26.3 H ABG O2 Saturation 83.7 L ABG Base Excess ABG Hemoglobin ABG Oxyhemoglobin ABG Sodium ABG Potassium ABG Glucose Oxyhemoglobin 82.1 L Sodium Potassium Chloride Carbon Dioxide BUN 29 H Creatinine Glucose 214 H POC Glucose 194 H Lactic Acid Calcium Phosphorus Magnesium Ferritin Lactate Dehydrogenase C-Reactive Protein NT-Pro-B Natriuret Pep Total Protein Albumin 3.4 L Triglycerides Arterial Blood Glucose Ur Specific [place] Coronavirus (PCR) 03/09/21 03/10/21 03/10/21 20:40 04:29 04:29 WBC 20.6 H RBC 5.07 H Hgb Hct 46.2 H MCV MCHC RDW Plt Count Lymph % (Auto) [place] % (Auto) Lymph # (Auto) [place] # (Auto) Seg Neutrophils % Seg Neuts % (Manual) 94.0 H Lymphocytes % (Manual) 1.0 L Monocytes % (Manual) Nucleated RBC % 3.0 H Seg Neutrophils # Seg Neutrophils # Man 19.4 H Lymphocytes # (Manual) 0.2 L Monocytes # (Manual) 1.0 H PT INR D-Dimer ABG pH POC ABG pCO2 POC ABG pO2 ABG pO2 ABG HCO3 ABG O2 Saturation ABG Base Excess ABG Hemoglobin ABG Oxyhemoglobin ABG Sodium ABG Potassium ABG Glucose Oxyhemoglobin Sodium Potassium Chloride Carbon Dioxide BUN 29 H Creatinine Glucose 188 H POC Glucose 176 H Lactic Acid Calcium Phosphorus Magnesium Ferritin Lactate Dehydrogenase C-Reactive Protein NT-Pro-B Natriuret Pep Total Protein Albumin 3.3 L Triglycerides Arterial Blood Glucose Ur Specific [place] Coronavirus (PCR) 03/10/21 03/10/21 03/10/21 05:22 10:27 15:25 WBC RBC Hgb Hct MCV MCHC RDW Plt Count Lymph % (Auto) [place] % (Auto) Lymph # (Auto) [place] # (Auto) Seg Neutrophils % Seg Neuts % (Manual) Lymphocytes % (Manual) Monocytes % (Manual) Nucleated RBC % Seg Neutrophils # Seg Neutrophils # Man Lymphocytes # (Manual) Monocytes # (Manual) PT INR D-Dimer ABG pH 7.488 H 7.488 H POC ABG pCO2 POC ABG pO2 ABG pO2 47.7 L 50.5 L ABG HCO3 ABG O2 Saturation 86.2 L 87.9 L ABG Base Excess ABG Hemoglobin ABG Oxyhemoglobin ABG Sodium ABG Potassium ABG Glucose Oxyhemoglobin 84.6 L 86.2 L Sodium Potassium Chloride Carbon Dioxide BUN Creatinine Glucose POC Glucose 155 H Lactic Acid Calcium Phosphorus Magnesium Ferritin Lactate Dehydrogenase C-Reactive Protein NT-Pro-B Natriuret Pep Total Protein Albumin Triglycerides Arterial Blood Glucose Ur Specific [place] Coronavirus (PCR) 03/10/21 03/10/21 03/11/21 18:10 18:55 00:07 WBC RBC Hgb Hct MCV MCHC RDW Plt Count Lymph % (Auto) [place] % (Auto) Lymph # (Auto) [place] # (Auto) Seg Neutrophils % Seg Neuts % (Manual) Lymphocytes % (Manual) Monocytes % (Manual) Nucleated RBC % Seg Neutrophils # Seg Neutrophils # Man Lymphocytes # (Manual) Monocytes # (Manual) PT INR D-Dimer ABG pH 7.343 L POC ABG pCO2 POC ABG pO2 ABG pO2 60.4 L ABG HCO3 27.9 H ABG O2 Saturation 88.7 L ABG Base Excess ABG Hemoglobin ABG Oxyhemoglobin ABG Sodium ABG Potassium ABG Glucose Oxyhemoglobin 86.9 L Sodium Potassium Chloride Carbon Dioxide BUN Creatinine Glucose POC Glucose 187 H 139 H Lactic Acid Calcium Phosphorus Magnesium Ferritin Lactate Dehydrogenase C-Reactive Protein NT-Pro-B Natriuret Pep Total Protein Albumin Triglycerides Arterial Blood Glucose Ur Specific [place] Coronavirus (PCR) 03/11/21 03/11/21 03/11/21 02:09 04:28 08:06 WBC RBC Hgb Hct MCV MCHC RDW Plt Count Lymph % (Auto) [place] % (Auto) Lymph # (Auto) [place] # (Auto) Seg Neutrophils % Seg Neuts % (Manual) Lymphocytes % (Manual) Monocytes % (Manual) Nucleated RBC % Seg Neutrophils # Seg Neutrophils # Man Lymphocytes # (Manual) Monocytes # (Manual) PT INR D-Dimer ABG pH 7.277 L POC ABG pCO2 55.9 H POC ABG pO2 54.4 L ABG pO2 ABG HCO3 ABG O2 Saturation ABG Base Excess ABG Hemoglobin ABG Oxyhemoglobin 83.0 L ABG Sodium ABG Potassium 4.8 H ABG Glucose 180 H Oxyhemoglobin Sodium Potassium Chloride Carbon Dioxide BUN 38 H Creatinine Glucose 249 H POC Glucose 278 H Lactic Acid Calcium Phosphorus Magnesium Ferritin Lactate Dehydrogenase C-Reactive Protein NT-Pro-B Natriuret Pep Total Protein Albumin 3.2 L Triglycerides Arterial Blood Glucose 180 H Ur Specific [place] Coronavirus (PCR) 03/11/21 03/11/21 03/11/21 11:29 15:06 15:48 WBC RBC Hgb Hct MCV MCHC RDW Plt Count Lymph % (Auto) [place] % (Auto) Lymph # (Auto) [place] # (Auto) Seg Neutrophils % Seg Neuts % (Manual) Lymphocytes % (Manual) Monocytes % (Manual) Nucleated RBC % Seg Neutrophils # Seg Neutrophils # Man Lymphocytes # (Manual) Monocytes # (Manual) PT INR D-Dimer ABG pH 7.260 L POC ABG pCO2 POC ABG pO2 ABG pO2 53.5 L ABG HCO3 29.5 H ABG O2 Saturation 84.0 L ABG Base Excess ABG Hemoglobin ABG Oxyhemoglobin ABG Sodium ABG Potassium ABG Glucose Oxyhemoglobin 82.3 L Sodium Potassium Chloride Carbon Dioxide BUN Creatinine Glucose POC Glucose 288 H 295 H Lactic Acid Calcium Phosphorus Magnesium Ferritin Lactate Dehydrogenase C-Reactive Protein NT-Pro-B Natriuret Pep Total Protein Albumin Triglycerides Arterial Blood Glucose Ur Specific [place] Coronavirus (PCR) 03/12/21 03/12/21 03/12/21 00:01 05:24 08:03 WBC RBC Hgb Hct MCV MCHC RDW Plt Count Lymph % (Auto) [place] % (Auto) Lymph # (Auto) [place] # (Auto) Seg Neutrophils % Seg Neuts % (Manual) Lymphocytes % (Manual) Monocytes % (Manual) Nucleated RBC % Seg Neutrophils # Seg Neutrophils # Man Lymphocytes # (Manual) Monocytes # (Manual) PT INR D-Dimer ABG pH POC ABG pCO2 POC ABG pO2 ABG pO2 ABG HCO3 ABG O2 Saturation ABG Base Excess ABG Hemoglobin ABG Oxyhemoglobin ABG Sodium ABG Potassium ABG Glucose Oxyhemoglobin Sodium 135 L Potassium Chloride Carbon Dioxide BUN 48 H Creatinine Glucose 358 H POC Glucose 304 H 310 H Lactic Acid Calcium Phosphorus Magnesium Ferritin Lactate Dehydrogenase C-Reactive Protein NT-Pro-B Natriuret Pep Total Protein 6.0 L Albumin 2.9 L Triglycerides Arterial Blood Glucose Ur Specific [place] Coronavirus (PCR) 03/12/21 03/12/21 03/12/21 08:03 10:43 11:31 WBC 14.6 H RBC Hgb Hct MCV MCHC RDW Plt Count Lymph % (Auto) [place] % (Auto) Lymph # (Auto) [place] # (Auto) Seg Neutrophils % Seg Neuts % (Manual) Lymphocytes % (Manual) Monocytes % (Manual) Nucleated RBC % Seg Neutrophils # Seg Neutrophils # Man Lymphocytes # (Manual) Monocytes # (Manual) PT INR D-Dimer ABG pH 7.248 L POC ABG pCO2 POC ABG pO2 ABG pO2 73.7 L ABG HCO3 32.0 H ABG O2 Saturation 93.9 L ABG Base Excess ABG Hemoglobin ABG Oxyhemoglobin ABG Sodium ABG Potassium ABG Glucose Oxyhemoglobin 92.1 L Sodium Potassium Chloride Carbon Dioxide BUN Creatinine Glucose POC Glucose 359 H Lactic Acid Calcium Phosphorus Magnesium Ferritin Lactate Dehydrogenase C-Reactive Protein NT-Pro-B Natriuret Pep Total Protein Albumin Triglycerides Arterial Blood Glucose Ur Specific [place] Coronavirus (PCR) 03/12/21 03/12/21 03/13/21 17:20 21:54 00:02 WBC RBC Hgb Hct MCV MCHC RDW Plt Count Lymph % (Auto) [place] % (Auto) Lymph # (Auto) [place] # (Auto) Seg Neutrophils % Seg Neuts % (Manual) Lymphocytes % (Manual) Monocytes % (Manual) Nucleated RBC % Seg Neutrophils # Seg Neutrophils # Man Lymphocytes # (Manual) Monocytes # (Manual) PT INR D-Dimer ABG pH 7.238 L POC ABG pCO2 71.9 H POC ABG pO2 53.6 L ABG pO2 ABG HCO3 ABG O2 Saturation ABG Base Excess ABG Hemoglobin ABG Oxyhemoglobin 84.8 L ABG Sodium 134.2 L ABG Potassium 4.9 H ABG Glucose 306 H Oxyhemoglobin Sodium Potassium Chloride Carbon Dioxide BUN Creatinine Glucose POC Glucose 374 H 308 H Lactic Acid Calcium Phosphorus Magnesium Ferritin Lactate Dehydrogenase C-Reactive Protein NT-Pro-B Natriuret Pep Total Protein Albumin Triglycerides Arterial Blood Glucose 306 H Ur Specific [place] Coronavirus (PCR) 03/13/21 03/13/21 03/13/21 05:22 05:44 05:44 WBC 13.9 H RBC Hgb Hct MCV MCHC RDW Plt Count Lymph % (Auto) [place] % (Auto) Lymph # (Auto) [place] # (Auto) Seg Neutrophils % Seg Neuts % (Manual) Lymphocytes % (Manual) Monocytes % (Manual) Nucleated RBC % Seg Neutrophils # Seg Neutrophils # Man Lymphocytes # (Manual) Monocytes # (Manual) PT INR D-Dimer 3567.97 H ABG pH POC ABG pCO2 POC ABG pO2 ABG pO2 ABG HCO3 ABG O2 Saturation ABG Base Excess ABG Hemoglobin ABG Oxyhemoglobin ABG Sodium ABG Potassium ABG Glucose Oxyhemoglobin Sodium Potassium Chloride Carbon Dioxide BUN Creatinine Glucose POC Glucose 316 H Lactic Acid Calcium Phosphorus Magnesium Ferritin Lactate Dehydrogenase C-Reactive Protein NT-Pro-B Natriuret Pep Total Protein Albumin Triglycerides Arterial Blood Glucose Ur Specific [place] Coronavirus (PCR) 03/13/21 03/13/21 03/13/21 05:44 05:44 11:15 WBC RBC Hgb Hct MCV MCHC RDW Plt Count Lymph % (Auto) [place] % (Auto) Lymph # (Auto) [place] # (Auto) Seg Neutrophils % Seg Neuts % (Manual) Lymphocytes % (Manual) Monocytes % (Manual) Nucleated RBC % Seg Neutrophils # Seg Neutrophils # Man Lymphocytes # (Manual) Monocytes # (Manual) PT INR D-Dimer ABG pH 7.310 L POC ABG pCO2 POC ABG pO2 ABG pO2 52.3 L ABG HCO3 34.1 H ABG O2 Saturation 86.8 L ABG Base Excess 5.5 H ABG Hemoglobin 13.8 L ABG Oxyhemoglobin ABG Sodium ABG Potassium ABG Glucose Oxyhemoglobin 85.1 L Sodium Potassium Chloride Carbon Dioxide BUN Creatinine Glucose POC Glucose Lactic Acid Calcium Phosphorus Magnesium Ferritin 858.7 H Lactate Dehydrogenase 348 H C-Reactive Protein 2.80 H NT-Pro-B Natriuret Pep Total Protein Albumin Triglycerides Arterial Blood Glucose Ur Specific [place] Coronavirus (PCR) 03/13/21 03/13/21 03/13/21 11:21 15:47 19:23 WBC RBC Hgb Hct MCV MCHC RDW Plt Count Lymph % (Auto) [place] % (Auto) Lymph # (Auto) [place] # (Auto) Seg Neutrophils % Seg Neuts % (Manual) Lymphocytes % (Manual) Monocytes % (Manual) Nucleated RBC % Seg Neutrophils # Seg Neutrophils # Man Lymphocytes # (Manual) Monocytes # (Manual) PT INR D-Dimer ABG pH POC ABG pCO2 POC ABG pO2 ABG pO2 ABG HCO3 ABG O2 Saturation ABG Base Excess ABG Hemoglobin ABG Oxyhemoglobin ABG Sodium ABG Potassium ABG Glucose Oxyhemoglobin Sodium 136 L Potassium 5.9 H Chloride Carbon Dioxide BUN 50 H Creatinine Glucose 397 H POC Glucose 322 H 317 H Lactic Acid Calcium Phosphorus Magnesium Ferritin Lactate Dehydrogenase C-Reactive Protein NT-Pro-B Natriuret Pep Total Protein Albumin Triglycerides Arterial Blood Glucose Ur Specific [place] Coronavirus (PCR) 03/13/21 03/14/21 03/14/21 23:46 05:32 05:50 WBC 11.6 H RBC Hgb Hct MCV MCHC RDW Plt Count Lymph % (Auto) [place] % (Auto) Lymph # (Auto) [place] # (Auto) Seg Neutrophils % Seg Neuts % (Manual) Lymphocytes % (Manual) Monocytes % (Manual) Nucleated RBC % Seg Neutrophils # Seg Neutrophils # Man Lymphocytes # (Manual) Monocytes # (Manual) PT INR D-Dimer ABG pH POC ABG pCO2 POC ABG pO2 ABG pO2 ABG HCO3 ABG O2 Saturation ABG Base Excess ABG Hemoglobin ABG Oxyhemoglobin ABG Sodium ABG Potassium ABG Glucose Oxyhemoglobin Sodium Potassium Chloride Carbon Dioxide BUN Creatinine Glucose POC Glucose 332 H 316 H Lactic Acid Calcium Phosphorus Magnesium Ferritin Lactate Dehydrogenase C-Reactive Protein NT-Pro-B Natriuret Pep Total Protein Albumin Triglycerides Arterial Blood Glucose Ur Specific [place] Coronavirus (PCR) 03/14/21 03/14/21 03/14/21 05:50 11:33 16:53 WBC RBC Hgb Hct MCV MCHC RDW Plt Count Lymph % (Auto) [place] % (Auto) Lymph # (Auto) [place] # (Auto) Seg Neutrophils % Seg Neuts % (Manual) Lymphocytes % (Manual) Monocytes % (Manual) Nucleated RBC % Seg Neutrophils # Seg Neutrophils # Man Lymphocytes # (Manual) Monocytes # (Manual) PT INR D-Dimer ABG pH POC ABG pCO2 POC ABG pO2 ABG pO2 ABG HCO3 ABG O2 Saturation ABG Base Excess ABG Hemoglobin ABG Oxyhemoglobin ABG Sodium ABG Potassium ABG Glucose Oxyhemoglobin Sodium Potassium 5.9 H Chloride Carbon Dioxide 31 H BUN 48 H Creatinine Glucose 380 H POC Glucose 315 H 235 H Lactic Acid Calcium Phosphorus Magnesium 3.40 H Ferritin Lactate Dehydrogenase C-Reactive Protein NT-Pro-B Natriuret Pep Total Protein Albumin Triglycerides Arterial Blood Glucose Ur Specific [place] Coronavirus (PCR) 03/14/21 03/14/21 03/15/21 18:34 23:27 01:22 WBC RBC Hgb Hct 46.3 H MCV MCHC RDW Plt Count Lymph % (Auto) [place] % (Auto) Lymph # (Auto) [place] # (Auto) Seg Neutrophils % Seg Neuts % (Manual) Lymphocytes % (Manual) Monocytes % (Manual) Nucleated RBC % Seg Neutrophils # Seg Neutrophils # Man Lymphocytes # (Manual) Monocytes # (Manual) PT INR D-Dimer ABG pH POC ABG pCO2 POC ABG pO2 ABG pO2 ABG HCO3 ABG O2 Saturation ABG Base Excess ABG Hemoglobin ABG Oxyhemoglobin ABG Sodium ABG Potassium ABG Glucose Oxyhemoglobin Sodium 146 H Potassium Chloride Carbon Dioxide 34 H BUN 49 H Creatinine Glucose 285 H POC Glucose 203 H Lactic Acid Calcium Phosphorus Magnesium Ferritin Lactate Dehydrogenase C-Reactive Protein NT-Pro-B Natriuret Pep Total Protein Albumin Triglycerides Arterial Blood Glucose Ur Specific [place] Coronavirus (PCR) 03/15/21 03/15/21 03/15/21 04:00 06:06 06:06 WBC RBC Hgb Hct MCV MCHC RDW Plt Count Lymph % (Auto) [place] % (Auto) Lymph # (Auto) [place] # (Auto) Seg Neutrophils % Seg Neuts % (Manual) Lymphocytes % (Manual) Monocytes % (Manual) Nucleated RBC % Seg Neutrophils # Seg Neutrophils # Man Lymphocytes # (Manual) Monocytes # (Manual) PT INR D-Dimer 1781.79 H ABG pH POC ABG pCO2 POC ABG pO2 ABG pO2 ABG HCO3 ABG O2 Saturation ABG Base Excess ABG Hemoglobin ABG Oxyhemoglobin ABG Sodium ABG Potassium ABG Glucose Oxyhemoglobin Sodium 148 H Potassium 5.7 H D Chloride 108.0 H Carbon Dioxide 31 H BUN 46 H Creatinine Glucose 139 H POC Glucose Lactic Acid Calcium Phosphorus 4.80 H D Magnesium 3.00 H Ferritin 976.4 H Lactate Dehydrogenase 630 H C-Reactive Protein NT-Pro-B Natriuret Pep Total Protein Albumin Triglycerides Arterial Blood Glucose Ur Specific [place] Coronavirus (PCR) 03/15/21 03/15/21 03/15/21 11:56 14:05 17:09 WBC RBC Hgb Hct MCV MCHC RDW Plt Count Lymph % (Auto) [place] % (Auto) Lymph # (Auto) [place] # (Auto) Seg Neutrophils % Seg Neuts % (Manual) Lymphocytes % (Manual) Monocytes % (Manual) Nucleated RBC % Seg Neutrophils # Seg Neutrophils # Man Lymphocytes # (Manual) Monocytes # (Manual) PT INR D-Dimer ABG pH POC ABG pCO2 POC ABG pO2 ABG pO2 52.1 L ABG HCO3 36.6 H ABG O2 Saturation 87.6 L ABG Base Excess 9.5 H ABG Hemoglobin ABG Oxyhemoglobin ABG Sodium ABG Potassium ABG Glucose Oxyhemoglobin 85.7 L Sodium Potassium Chloride Carbon Dioxide BUN Creatinine Glucose POC Glucose 219 H 263 H Lactic Acid Calcium Phosphorus Magnesium Ferritin Lactate Dehydrogenase C-Reactive Protein NT-Pro-B Natriuret Pep Total Protein Albumin Triglycerides Arterial Blood Glucose Ur Specific [place] Coronavirus (PCR) 03/16/21 03/16/21 03/16/21 00:32 04:11 04:11 WBC 11.9 H RBC Hgb Hct MCV MCHC 30 L RDW Plt Count Lymph % (Auto) [place] % (Auto) Lymph # (Auto) [place] # (Auto) Seg Neutrophils % Seg Neuts % (Manual) Lymphocytes % (Manual) Monocytes % (Manual) Nucleated RBC % Seg Neutrophils # Seg Neutrophils # Man Lymphocytes # (Manual) Monocytes # (Manual) PT INR D-Dimer ABG pH POC ABG pCO2 POC ABG pO2 ABG pO2 ABG HCO3 ABG O2 Saturation ABG Base Excess ABG Hemoglobin ABG Oxyhemoglobin ABG Sodium ABG Potassium ABG Glucose Oxyhemoglobin Sodium 151 H Potassium Chloride Carbon Dioxide 35 H BUN 48 H Creatinine Glucose 152 H POC Glucose 165 H Lactic Acid Calcium Phosphorus Magnesium Ferritin Lactate Dehydrogenase C-Reactive Protein NT-Pro-B Natriuret Pep Total Protein Albumin Triglycerides Arterial Blood Glucose Ur Specific [place] Coronavirus (PCR) 03/16/21 03/16/21 03/16/21 04:11 05:26 11:35 WBC RBC Hgb Hct MCV MCHC RDW Plt Count Lymph % (Auto) [place] % (Auto) Lymph # (Auto) [place] # (Auto) Seg Neutrophils % Seg Neuts % (Manual) Lymphocytes % (Manual) Monocytes % (Manual) Nucleated RBC % Seg Neutrophils # Seg Neutrophils # Man Lymphocytes # (Manual) Monocytes # (Manual) PT INR D-Dimer ABG pH POC ABG pCO2 POC ABG pO2 ABG pO2 ABG HCO3 ABG O2 Saturation ABG Base Excess ABG Hemoglobin ABG Oxyhemoglobin ABG Sodium ABG Potassium ABG Glucose Oxyhemoglobin Sodium Potassium Chloride Carbon Dioxide BUN Creatinine Glucose POC Glucose 162 H 187 H Lactic Acid Calcium Phosphorus Magnesium Ferritin Lactate Dehydrogenase C-Reactive Protein NT-Pro-B Natriuret Pep Total Protein Albumin Triglycerides 267 H Arterial Blood Glucose Ur Specific [place] Coronavirus (PCR) 03/16/21 03/16/21 03/16/21 17:29 22:25 23:22 WBC RBC Hgb Hct MCV MCHC RDW Plt Count Lymph % (Auto) [place] % (Auto) Lymph # (Auto) [place] # (Auto) Seg Neutrophils % Seg Neuts % (Manual) Lymphocytes % (Manual) Monocytes % (Manual) Nucleated RBC % Seg Neutrophils # Seg Neutrophils # Man Lymphocytes # (Manual) Monocytes # (Manual) PT INR D-Dimer ABG pH POC ABG pCO2 POC ABG pO2 ABG pO2 ABG HCO3 ABG O2 Saturation ABG Base Excess ABG Hemoglobin ABG Oxyhemoglobin ABG Sodium ABG Potassium ABG Glucose Oxyhemoglobin Sodium Potassium Chloride Carbon Dioxide BUN Creatinine Glucose POC Glucose 237 H 165 H 189 H Lactic Acid Calcium Phosphorus Magnesium Ferritin Lactate Dehydrogenase C-Reactive Protein NT-Pro-B Natriuret Pep Total Protein Albumin Triglycerides Arterial Blood Glucose Ur Specific [place] Coronavirus (PCR) 03/17/21 03/17/21 03/17/21 04:40 04:40 04:40 WBC 14.1 H RBC Hgb Hct MCV MCHC RDW 15.3 H Plt Count Lymph % (Auto) 12.6 L [place] % (Auto) 11.3 H Lymph # (Auto) [place] # (Auto) 1.6 H Seg Neutrophils % 74.9 H Seg Neuts % (Manual) Lymphocytes % (Manual) Monocytes % (Manual) Nucleated RBC % Seg Neutrophils # 10.5 H Seg Neutrophils # Man Lymphocytes # (Manual) Monocytes # (Manual) PT INR D-Dimer 1359.12 H ABG pH POC ABG pCO2 POC ABG pO2 ABG pO2 ABG HCO3 ABG O2 Saturation ABG Base Excess ABG Hemoglobin ABG Oxyhemoglobin ABG Sodium ABG Potassium ABG Glucose Oxyhemoglobin Sodium 148 H Potassium Chloride 107.5 H Carbon Dioxide 33 H BUN 42 H Creatinine Glucose 183 H POC Glucose Lactic Acid Calcium Phosphorus Magnesium 2.70 H Ferritin Lactate Dehydrogenase C-Reactive Protein NT-Pro-B Natriuret Pep Total Protein Albumin Triglycerides Arterial Blood Glucose Ur Specific [place] Coronavirus (PCR) 03/17/21 03/17/21 03/17/21 05:53 11:05 11:51 WBC RBC Hgb Hct MCV MCHC RDW Plt Count Lymph % (Auto) [place] % (Auto) Lymph # (Auto) [place] # (Auto) Seg Neutrophils % Seg Neuts % (Manual) Lymphocytes % (Manual) Monocytes % (Manual) Nucleated RBC % Seg Neutrophils # Seg Neutrophils # Man Lymphocytes # (Manual) Monocytes # (Manual) PT INR D-Dimer ABG pH POC ABG pCO2 POC ABG pO2 ABG pO2 ABG HCO3 35.7 H ABG O2 Saturation ABG Base Excess 8.7 H ABG Hemoglobin ABG Oxyhemoglobin ABG Sodium ABG Potassium ABG Glucose Oxyhemoglobin 94.2 L Sodium Potassium Chloride Carbon Dioxide BUN Creatinine Glucose POC Glucose 176 H 197 H Lactic Acid Calcium Phosphorus Magnesium Ferritin Lactate Dehydrogenase C-Reactive Protein NT-Pro-B Natriuret Pep Total Protein Albumin Triglycerides Arterial Blood Glucose Ur Specific [place] Coronavirus (PCR) 03/17/21 03/17/21 03/17/21 16:54 21:10 23:33 WBC RBC Hgb Hct MCV MCHC RDW Plt Count Lymph % (Auto) [place] % (Auto) Lymph # (Auto) [place] # (Auto) Seg Neutrophils % Seg Neuts % (Manual) Lymphocytes % (Manual) Monocytes % (Manual) Nucleated RBC % Seg Neutrophils # Seg Neutrophils # Man Lymphocytes # (Manual) Monocytes # (Manual) PT INR D-Dimer ABG pH POC ABG pCO2 POC ABG pO2 ABG pO2 ABG HCO3 ABG O2 Saturation ABG Base Excess ABG Hemoglobin ABG Oxyhemoglobin ABG Sodium ABG Potassium ABG Glucose Oxyhemoglobin Sodium Potassium Chloride Carbon Dioxide BUN Creatinine Glucose POC Glucose 135 H 160 H 138 H Lactic Acid Calcium Phosphorus Magnesium Ferritin Lactate Dehydrogenase C-Reactive Protein NT-Pro-B Natriuret Pep Total Protein Albumin Triglycerides Arterial Blood Glucose Ur Specific [place] Coronavirus (PCR) 03/18/21 03/18/21 03/18/21 04:18 04:50 05:43 WBC RBC Hgb Hct MCV MCHC RDW Plt Count Lymph % (Auto) [place] % (Auto) Lymph # (Auto) [place] # (Auto) Seg Neutrophils % Seg Neuts % (Manual) Lymphocytes % (Manual) Monocytes % (Manual) Nucleated RBC % Seg Neutrophils # Seg Neutrophils # Man Lymphocytes # (Manual) Monocytes # (Manual) PT INR D-Dimer ABG pH POC ABG pCO2 POC ABG pO2 ABG pO2 59.8 L ABG HCO3 36.5 H ABG O2 Saturation 90.7 L ABG Base Excess 9.4 H ABG Hemoglobin 12.0 L ABG Oxyhemoglobin ABG Sodium ABG Potassium ABG Glucose Oxyhemoglobin 88.9 L Sodium Potassium Chloride 107.2 H Carbon Dioxide 34 H BUN 38 H Creatinine 0.7 L Glucose 136 H POC Glucose 128 H Lactic Acid Calcium Phosphorus Magnesium Ferritin Lactate Dehydrogenase C-Reactive Protein NT-Pro-B Natriuret Pep Total Protein Albumin Triglycerides Arterial Blood Glucose Ur Specific [place] Coronavirus (PCR) 03/18/21 03/18/21 03/18/21 11:20 17:35 23:35 WBC RBC Hgb Hct MCV MCHC RDW Plt Count Lymph % (Auto) [place] % (Auto) Lymph # (Auto) [place] # (Auto) Seg Neutrophils % Seg Neuts % (Manual) Lymphocytes % (Manual) Monocytes % (Manual) Nucleated RBC % Seg Neutrophils # Seg Neutrophils # Man Lymphocytes # (Manual) Monocytes # (Manual) PT INR D-Dimer ABG pH POC ABG pCO2 POC ABG pO2 ABG pO2 70.7 L ABG HCO3 33.6 H ABG O2 Saturation ABG Base Excess 8.0 H ABG Hemoglobin ABG Oxyhemoglobin ABG Sodium ABG Potassium ABG Glucose Oxyhemoglobin 93.7 L Sodium Potassium Chloride Carbon Dioxide BUN Creatinine Glucose POC Glucose 189 H 144 H Lactic Acid Calcium Phosphorus Magnesium Ferritin Lactate Dehydrogenase C-Reactive Protein NT-Pro-B Natriuret Pep Total Protein Albumin Triglycerides Arterial Blood Glucose Ur Specific [place] Coronavirus (PCR) 03/19/21 03/19/21 03/19/21 02:35 04:20 04:20 WBC 14.0 H RBC Hgb Hct MCV MCHC RDW Plt Count Lymph % (Auto) [place] % (Auto) Lymph # (Auto) [place] # (Auto) Seg Neutrophils % Seg Neuts % (Manual) Lymphocytes % (Manual) Monocytes % (Manual) Nucleated RBC % Seg Neutrophils # Seg Neutrophils # Man Lymphocytes # (Manual) Monocytes # (Manual) PT INR D-Dimer ABG pH POC ABG pCO2 POC ABG pO2 ABG pO2 ABG HCO3 32.0 H ABG O2 Saturation ABG Base Excess 5.2 H ABG Hemoglobin 13.6 L ABG Oxyhemoglobin ABG Sodium ABG Potassium ABG Glucose Oxyhemoglobin 94.6 L Sodium 146 H Potassium Chloride 109.3 H Carbon Dioxide BUN 36 H Creatinine Glucose 203 H POC Glucose Lactic Acid Calcium Phosphorus Magnesium Ferritin Lactate Dehydrogenase C-Reactive Protein NT-Pro-B Natriuret Pep Total Protein Albumin Triglycerides 254 H Arterial Blood Glucose Ur Specific [place] Coronavirus (PCR) 03/19/21 03/19/21 03/19/21 05:45 11:36 23:51 WBC RBC Hgb Hct MCV MCHC RDW Plt Count Lymph % (Auto) [place] % (Auto) Lymph # (Auto) [place] # (Auto) Seg Neutrophils % Seg Neuts % (Manual) Lymphocytes % (Manual) Monocytes % (Manual) Nucleated RBC % Seg Neutrophils # Seg Neutrophils # Man Lymphocytes # (Manual) Monocytes # (Manual) PT INR D-Dimer ABG pH POC ABG pCO2 POC ABG pO2 ABG pO2 ABG HCO3 ABG O2 Saturation ABG Base Excess ABG Hemoglobin ABG Oxyhemoglobin ABG Sodium ABG Potassium ABG Glucose Oxyhemoglobin Sodium Potassium Chloride Carbon Dioxide BUN Creatinine Glucose POC Glucose 164 H 172 H 140 H Lactic Acid Calcium Phosphorus Magnesium Ferritin Lactate Dehydrogenase C-Reactive Protein NT-Pro-B Natriuret Pep Total Protein Albumin Triglycerides Arterial Blood Glucose Ur Specific [place] Coronavirus (PCR) 03/20/21 03/20/21 03/20/21 03:29 04:45 04:45 WBC RBC Hgb Hct MCV 95 H MCHC RDW 15.7 H Plt Count Lymph % (Auto) [place] % (Auto) Lymph # (Auto) [place] # (Auto) Seg Neutrophils % Seg Neuts % (Manual) Lymphocytes % (Manual) Monocytes % (Manual) Nucleated RBC % Seg Neutrophils # Seg Neutrophils # Man Lymphocytes # (Manual) Monocytes # (Manual) PT INR D-Dimer ABG pH 7.349 L POC ABG pCO2 POC ABG pO2 ABG pO2 ABG HCO3 33.7 H ABG O2 Saturation ABG Base Excess 6.4 H ABG Hemoglobin 11.8 L ABG Oxyhemoglobin ABG Sodium ABG Potassium ABG Glucose Oxyhemoglobin 93.9 L Sodium 146 H Potassium 5.5 H Chloride 111.1 H Carbon Dioxide BUN 34 H Creatinine 0.7 L Glucose 145 H POC Glucose Lactic Acid Calcium Phosphorus Magnesium 2.50 H Ferritin Lactate Dehydrogenase C-Reactive Protein NT-Pro-B Natriuret Pep Total Protein Albumin Triglycerides Arterial Blood Glucose Ur Specific [place] Coronavirus (PCR) 03/20/21 03/20/21 03/20/21 05:41 09:08 11:54 WBC RBC Hgb Hct MCV MCHC RDW Plt Count Lymph % (Auto) [place] % (Auto) Lymph # (Auto) [place] # (Auto) Seg Neutrophils % Seg Neuts % (Manual) Lymphocytes % (Manual) Monocytes % (Manual) Nucleated RBC % Seg Neutrophils # Seg Neutrophils # Man Lymphocytes # (Manual) Monocytes # (Manual) PT INR D-Dimer ABG pH POC ABG pCO2 POC ABG pO2 ABG pO2 ABG HCO3 ABG O2 Saturation ABG Base Excess ABG Hemoglobin ABG Oxyhemoglobin ABG Sodium ABG Potassium ABG Glucose Oxyhemoglobin Sodium Potassium Chloride Carbon Dioxide BUN Creatinine Glucose POC Glucose 108 H 132 H 162 H Lactic Acid Calcium Phosphorus Magnesium Ferritin Lactate Dehydrogenase C-Reactive Protein NT-Pro-B Natriuret Pep Total Protein Albumin Triglycerides Arterial Blood Glucose Ur Specific [place] Coronavirus (PCR) 03/20/21 03/21/21 03/21/21 17:28 00:31 04:44 WBC RBC Hgb Hct MCV MCHC RDW Plt Count Lymph % (Auto) [place] % (Auto) Lymph # (Auto) [place] # (Auto) Seg Neutrophils % Seg Neuts % (Manual) Lymphocytes % (Manual) Monocytes % (Manual) Nucleated RBC % Seg Neutrophils # Seg Neutrophils # Man Lymphocytes # (Manual) Monocytes # (Manual) PT INR D-Dimer ABG pH POC ABG pCO2 POC ABG pO2 ABG pO2 ABG HCO3 ABG O2 Saturation ABG Base Excess ABG Hemoglobin ABG Oxyhemoglobin ABG Sodium ABG Potassium ABG Glucose Oxyhemoglobin Sodium Potassium Chloride 108.3 H Carbon Dioxide BUN 30 H Creatinine 0.7 L Glucose POC Glucose 160 H 122 H Lactic Acid Calcium Phosphorus Magnesium Ferritin Lactate Dehydrogenase C-Reactive Protein NT-Pro-B Natriuret Pep Total Protein Albumin Triglycerides Arterial Blood Glucose Ur Specific [place] Coronavirus (PCR) 03/21/21 03/21/21 03/21/21 09:18 10:09 13:20 WBC RBC Hgb Hct MCV MCHC RDW Plt Count Lymph % (Auto) [place] % (Auto) Lymph # (Auto) [place] # (Auto) Seg Neutrophils % Seg Neuts % (Manual) Lymphocytes % (Manual) Monocytes % (Manual) Nucleated RBC % Seg Neutrophils # Seg Neutrophils # Man Lymphocytes # (Manual) Monocytes # (Manual) PT INR D-Dimer ABG pH POC ABG pCO2 POC ABG pO2 ABG pO2 60.7 L ABG HCO3 30.6 H ABG O2 Saturation 93.6 L ABG Base Excess 5.3 H ABG Hemoglobin ABG Oxyhemoglobin ABG Sodium ABG Potassium ABG Glucose Oxyhemoglobin 91.7 L Sodium Potassium Chloride Carbon Dioxide BUN Creatinine Glucose POC Glucose 169 H 122 H Lactic Acid Calcium Phosphorus Magnesium Ferritin Lactate Dehydrogenase C-Reactive Protein NT-Pro-B Natriuret Pep Total Protein Albumin Triglycerides Arterial Blood Glucose Ur Specific [place] Coronavirus (PCR) 03/21/21 03/21/21 03/21/21 17:25 22:41 23:52 WBC RBC Hgb Hct MCV MCHC RDW Plt Count Lymph % (Auto) [place] % (Auto) Lymph # (Auto) [place] # (Auto) Seg Neutrophils % Seg Neuts % (Manual) Lymphocytes % (Manual) Monocytes % (Manual) Nucleated RBC % Seg Neutrophils # Seg Neutrophils # Man Lymphocytes # (Manual) Monocytes # (Manual) PT INR D-Dimer ABG pH POC ABG pCO2 POC ABG pO2 ABG pO2 ABG HCO3 ABG O2 Saturation ABG Base Excess ABG Hemoglobin ABG Oxyhemoglobin ABG Sodium ABG Potassium ABG Glucose Oxyhemoglobin Sodium Potassium Chloride Carbon Dioxide BUN Creatinine Glucose POC Glucose 121 H 139 H 140 H Lactic Acid Calcium Phosphorus Magnesium Ferritin Lactate Dehydrogenase C-Reactive Protein NT-Pro-B Natriuret Pep Total Protein Albumin Triglycerides Arterial Blood Glucose Ur Specific [place] Coronavirus (PCR) 03/22/21 03/22/21 03/22/21 05:58 07:26 07:26 WBC RBC Hgb Hct MCV MCHC 31 L RDW 16.1 H Plt Count Lymph % (Auto) [place] % (Auto) Lymph # (Auto) [place] # (Auto) Seg Neutrophils % Seg Neuts % (Manual) Lymphocytes % (Manual) Monocytes % (Manual) Nucleated RBC % Seg Neutrophils # Seg Neutrophils # Man Lymphocytes # (Manual) Monocytes # (Manual) PT INR D-Dimer ABG pH POC ABG pCO2 POC ABG pO2 ABG pO2 ABG HCO3 ABG O2 Saturation ABG Base Excess ABG Hemoglobin ABG Oxyhemoglobin ABG Sodium ABG Potassium ABG Glucose Oxyhemoglobin Sodium Potassium Chloride 108.5 H Carbon Dioxide BUN 44 H Creatinine Glucose 120 H POC Glucose 131 H Lactic Acid Calcium Phosphorus 5.80 H Magnesium 2.80 H Ferritin Lactate Dehydrogenase C-Reactive Protein NT-Pro-B Natriuret Pep Total Protein Albumin Triglycerides 305 H Arterial Blood Glucose Ur Specific [place] Coronavirus (PCR) 03/22/21 03/22/21 03/22/21 09:38 11:15 16:01 WBC RBC Hgb Hct MCV MCHC RDW Plt Count Lymph % (Auto) [place] % (Auto) Lymph # (Auto) [place] # (Auto) Seg Neutrophils % Seg Neuts % (Manual) Lymphocytes % (Manual) Monocytes % (Manual) Nucleated RBC % Seg Neutrophils # Seg Neutrophils # Man Lymphocytes # (Manual) Monocytes # (Manual) PT INR D-Dimer ABG pH POC ABG pCO2 POC ABG pO2 ABG pO2 70.0 L ABG HCO3 30.0 H ABG O2 Saturation 94.6 L ABG Base Excess 3.6 H ABG Hemoglobin 13.5 L ABG Oxyhemoglobin ABG Sodium ABG Potassium ABG Glucose Oxyhemoglobin 92.5 L Sodium Potassium Chloride Carbon Dioxide BUN Creatinine Glucose POC Glucose 186 H 148 H Lactic Acid Calcium Phosphorus Magnesium Ferritin Lactate Dehydrogenase C-Reactive Protein NT-Pro-B Natriuret Pep Total Protein Albumin Triglycerides Arterial Blood Glucose Ur Specific [place] Coronavirus (PCR) 03/22/21 03/22/21 03/23/21 21:13 23:48 07:04 WBC 11.7 H RBC Hgb Hct MCV 95 H MCHC RDW 16.1 H Plt Count Lymph % (Auto) [place] % (Auto) Lymph # (Auto) [place] # (Auto) Seg Neutrophils % Seg Neuts % (Manual) Lymphocytes % (Manual) Monocytes % (Manual) Nucleated RBC % Seg Neutrophils # Seg Neutrophils # Man Lymphocytes # (Manual) Monocytes # (Manual) PT INR D-Dimer ABG pH POC ABG pCO2 POC ABG pO2 ABG pO2 ABG HCO3 ABG O2 Saturation ABG Base Excess ABG Hemoglobin ABG Oxyhemoglobin ABG Sodium ABG Potassium ABG Glucose Oxyhemoglobin Sodium Potassium Chloride Carbon Dioxide BUN Creatinine Glucose POC Glucose 121 H 114 H Lactic Acid Calcium Phosphorus Magnesium Ferritin Lactate Dehydrogenase C-Reactive Protein NT-Pro-B Natriuret Pep Total Protein Albumin Triglycerides Arterial Blood Glucose Ur Specific [place] Coronavirus (PCR) 03/23/21 03/23/21 03/23/21 07:04 08:35 11:19 WBC RBC Hgb Hct MCV MCHC RDW Plt Count Lymph % (Auto) [place] % (Auto) Lymph # (Auto) [place] # (Auto) Seg Neutrophils % Seg Neuts % (Manual) Lymphocytes % (Manual) Monocytes % (Manual) Nucleated RBC % Seg Neutrophils # Seg Neutrophils # Man Lymphocytes # (Manual) Monocytes # (Manual) PT INR D-Dimer ABG pH 7.345 L POC ABG pCO2 POC ABG pO2 ABG pO2 167.9 H ABG HCO3 32.2 H ABG O2 Saturation ABG Base Excess 4.8 H ABG Hemoglobin 13.4 L ABG Oxyhemoglobin ABG Sodium ABG Potassium ABG Glucose Oxyhemoglobin Sodium 148 H Potassium Chloride 111.3 H Carbon Dioxide 31 H BUN 31 H Creatinine Glucose 131 H POC Glucose 165 H Lactic Acid Calcium Phosphorus Magnesium 2.50 H Ferritin Lactate Dehydrogenase C-Reactive Protein NT-Pro-B Natriuret Pep Total Protein Albumin Triglycerides Arterial Blood Glucose Ur Specific [place] Coronavirus (PCR) 03/23/21 03/23/21 03/24/21 16:48 20:52 00:07 WBC RBC Hgb Hct MCV MCHC RDW Plt Count Lymph % (Auto) [place] % (Auto) Lymph # (Auto) [place] # (Auto) Seg Neutrophils % Seg Neuts % (Manual) Lymphocytes % (Manual) Monocytes % (Manual) Nucleated RBC % Seg Neutrophils # Seg Neutrophils # Man Lymphocytes # (Manual) Monocytes # (Manual) PT INR D-Dimer ABG pH POC ABG pCO2 POC ABG pO2 ABG pO2 ABG HCO3 ABG O2 Saturation ABG Base Excess ABG Hemoglobin ABG Oxyhemoglobin ABG Sodium ABG Potassium ABG Glucose Oxyhemoglobin Sodium Potassium Chloride Carbon Dioxide BUN Creatinine Glucose POC Glucose 160 H 127 H 147 H Lactic Acid Calcium Phosphorus Magnesium Ferritin Lactate Dehydrogenase C-Reactive Protein NT-Pro-B Natriuret Pep Total Protein Albumin Triglycerides Arterial Blood Glucose Ur Specific [place] Coronavirus (PCR) 03/24/21 03/24/21 03/24/21 04:34 04:34 05:20 WBC 13.3 H RBC Hgb Hct MCV MCHC 31 L RDW 16.1 H Plt Count Lymph % (Auto) [place] % (Auto) Lymph # (Auto) [place] # (Auto) Seg Neutrophils % Seg Neuts % (Manual) Lymphocytes % (Manual) Monocytes % (Manual) Nucleated RBC % Seg Neutrophils # Seg Neutrophils # Man Lymphocytes # (Manual) Monocytes # (Manual) PT INR D-Dimer ABG pH POC ABG pCO2 POC ABG pO2 ABG pO2 ABG HCO3 ABG O2 Saturation ABG Base Excess ABG Hemoglobin ABG Oxyhemoglobin ABG Sodium ABG Potassium ABG Glucose Oxyhemoglobin Sodium Potassium 5.2 H Chloride Carbon Dioxide BUN 28 H Creatinine 0.7 L Glucose 152 H POC Glucose 141 H Lactic Acid Calcium Phosphorus Magnesium Ferritin Lactate Dehydrogenase C-Reactive Protein NT-Pro-B Natriuret Pep Total Protein Albumin Triglycerides Arterial Blood Glucose Ur Specific [place] Coronavirus (PCR) 03/24/21 03/24/21 03/24/21 09:40 11:38 16:45 WBC RBC Hgb Hct MCV MCHC RDW Plt Count Lymph % (Auto) [place] % (Auto) Lymph # (Auto) [place] # (Auto) Seg Neutrophils % Seg Neuts % (Manual) Lymphocytes % (Manual) Monocytes % (Manual) Nucleated RBC % Seg Neutrophils # Seg Neutrophils # Man Lymphocytes # (Manual) Monocytes # (Manual) PT INR D-Dimer ABG pH POC ABG pCO2 POC ABG pO2 ABG pO2 ABG HCO3 ABG O2 Saturation ABG Base Excess ABG Hemoglobin ABG Oxyhemoglobin ABG Sodium ABG Potassium ABG Glucose Oxyhemoglobin Sodium Potassium Chloride Carbon Dioxide BUN Creatinine Glucose POC Glucose 126 H 136 H 118 H Lactic Acid Calcium Phosphorus Magnesium Ferritin Lactate Dehydrogenase C-Reactive Protein NT-Pro-B Natriuret Pep Total Protein Albumin Triglycerides Arterial Blood Glucose Ur Specific [place] Coronavirus (PCR) 03/24/21 03/24/21 03/25/21 21:03 23:49 04:32 WBC RBC Hgb Hct MCV MCHC RDW 16.1 H Plt Count 121 L Lymph % (Auto) [place] % (Auto) Lymph # (Auto) [place] # (Auto) Seg Neutrophils % Seg Neuts % (Manual) Lymphocytes % (Manual) Monocytes % (Manual) Nucleated RBC % Seg Neutrophils # Seg Neutrophils # Man Lymphocytes # (Manual) Monocytes # (Manual) PT INR D-Dimer ABG pH POC ABG pCO2 POC ABG pO2 ABG pO2 ABG HCO3 ABG O2 Saturation ABG Base Excess ABG Hemoglobin ABG Oxyhemoglobin ABG Sodium ABG Potassium ABG Glucose Oxyhemoglobin Sodium Potassium Chloride Carbon Dioxide BUN Creatinine Glucose POC Glucose 116 H 125 H Lactic Acid Calcium Phosphorus Magnesium Ferritin Lactate Dehydrogenase C-Reactive Protein NT-Pro-B Natriuret Pep Total Protein Albumin Triglycerides Arterial Blood Glucose Ur Specific [place] Coronavirus (PCR) 03/25/21 03/25/21 03/25/21 04:32 05:21 09:29 WBC RBC Hgb Hct MCV MCHC RDW Plt Count Lymph % (Auto) [place] % (Auto) Lymph # (Auto) [place] # (Auto) Seg Neutrophils % Seg Neuts % (Manual) Lymphocytes % (Manual) Monocytes % (Manual) Nucleated RBC % Seg Neutrophils # Seg Neutrophils # Man Lymphocytes # (Manual) Monocytes # (Manual) PT INR D-Dimer ABG pH POC ABG pCO2 POC ABG pO2 ABG pO2 ABG HCO3 ABG O2 Saturation ABG Base Excess ABG Hemoglobin ABG Oxyhemoglobin ABG Sodium ABG Potassium ABG Glucose Oxyhemoglobin Sodium 135 L D Potassium Chloride Carbon Dioxide BUN 25 H Creatinine 0.7 L Glucose 168 H POC Glucose 149 H 115 H Lactic Acid Calcium Phosphorus Magnesium Ferritin Lactate Dehydrogenase C-Reactive Protein NT-Pro-B Natriuret Pep Total Protein Albumin Triglycerides Arterial Blood Glucose Ur Specific [place] Coronavirus (PCR) 03/25/21 03/25/21 03/25/21 12:26 12:35 23:53 WBC RBC Hgb Hct MCV MCHC RDW Plt Count Lymph % (Auto) [place] % (Auto) Lymph # (Auto) [place] # (Auto) Seg Neutrophils % Seg Neuts % (Manual) Lymphocytes % (Manual) Monocytes % (Manual) Nucleated RBC % Seg Neutrophils # Seg Neutrophils # Man Lymphocytes # (Manual) Monocytes # (Manual) PT INR D-Dimer ABG pH POC ABG pCO2 POC ABG pO2 ABG pO2 100.5 H ABG HCO3 33.6 H ABG O2 Saturation ABG Base Excess 6.4 H ABG Hemoglobin 12.0 L ABG Oxyhemoglobin ABG Sodium ABG Potassium ABG Glucose Oxyhemoglobin Sodium Potassium Chloride Carbon Dioxide BUN Creatinine Glucose POC Glucose 108 H 137 H Lactic Acid Calcium Phosphorus Magnesium Ferritin Lactate Dehydrogenase C-Reactive Protein NT-Pro-B Natriuret Pep Total Protein Albumin Triglycerides Arterial Blood Glucose Ur Specific [place] Coronavirus (PCR) 03/26/21 03/26/21 03/26/21 05:14 07:09 07:09 WBC RBC Hgb Hct MCV MCHC RDW 16.5 H Plt Count 139 L Lymph % (Auto) [place] % (Auto) Lymph # (Auto) [place] # (Auto) Seg Neutrophils % Seg Neuts % (Manual) Lymphocytes % (Manual) Monocytes % (Manual) Nucleated RBC % Seg Neutrophils # Seg Neutrophils # Man Lymphocytes # (Manual) Monocytes # (Manual) PT INR D-Dimer ABG pH POC ABG pCO2 POC ABG pO2 ABG pO2 ABG HCO3 ABG O2 Saturation ABG Base Excess ABG Hemoglobin ABG Oxyhemoglobin ABG Sodium ABG Potassium ABG Glucose Oxyhemoglobin Sodium Potassium Chloride Carbon Dioxide BUN 22 H Creatinine 0.7 L Glucose 108 H POC Glucose 116 H Lactic Acid Calcium Phosphorus Magnesium Ferritin Lactate Dehydrogenase C-Reactive Protein NT-Pro-B Natriuret Pep Total Protein Albumin Triglycerides Arterial Blood Glucose Ur Specific [place] Coronavirus (PCR) 03/26/21 03/26/21 03/26/21 09:51 11:15 16:59 WBC RBC Hgb Hct MCV MCHC RDW Plt Count Lymph % (Auto) [place] % (Auto) Lymph # (Auto) [place] # (Auto) Seg Neutrophils % Seg Neuts % (Manual) Lymphocytes % (Manual) Monocytes % (Manual) Nucleated RBC % Seg Neutrophils # Seg Neutrophils # Man Lymphocytes # (Manual) Monocytes # (Manual) PT INR D-Dimer ABG pH POC ABG pCO2 POC ABG pO2 ABG pO2 ABG HCO3 ABG O2 Saturation ABG Base Excess ABG Hemoglobin ABG Oxyhemoglobin ABG Sodium ABG Potassium ABG Glucose Oxyhemoglobin Sodium Potassium Chloride Carbon Dioxide BUN Creatinine Glucose POC Glucose 107 H 119 H 174 H Lactic Acid Calcium Phosphorus Magnesium Ferritin Lactate Dehydrogenase C-Reactive Protein NT-Pro-B Natriuret Pep Total Protein Albumin Triglycerides Arterial Blood Glucose Ur Specific [place] Coronavirus (PCR) 03/26/21 03/27/21 03/27/21 22:18 07:08 10:28 WBC RBC Hgb Hct MCV 95 H MCHC RDW 16.2 H Plt Count 134 L Lymph % (Auto) [place] % (Auto) Lymph # (Auto) [place] # (Auto) Seg Neutrophils % Seg Neuts % (Manual) Lymphocytes % (Manual) Monocytes % (Manual) Nucleated RBC % Seg Neutrophils # Seg Neutrophils # Man Lymphocytes # (Manual) Monocytes # (Manual) PT INR D-Dimer ABG pH POC ABG pCO2 POC ABG pO2 ABG pO2 ABG HCO3 ABG O2 Saturation ABG Base Excess ABG Hemoglobin ABG Oxyhemoglobin ABG Sodium ABG Potassium ABG Glucose Oxyhemoglobin Sodium Potassium Chloride Carbon Dioxide BUN Creatinine Glucose POC Glucose 107 H 52 L Lactic Acid Calcium Phosphorus Magnesium Ferritin Lactate Dehydrogenase C-Reactive Protein NT-Pro-B Natriuret Pep Total Protein Albumin Triglycerides Arterial Blood Glucose Ur Specific [place] Coronavirus (PCR) 03/27/21 03/27/21 03/27/21 10:28 11:45 17:39 WBC RBC Hgb Hct MCV MCHC RDW Plt Count Lymph % (Auto) [place] % (Auto) Lymph # (Auto) [place] # (Auto) Seg Neutrophils % Seg Neuts % (Manual) Lymphocytes % (Manual) Monocytes % (Manual) Nucleated RBC % Seg Neutrophils # Seg Neutrophils # Man Lymphocytes # (Manual) Monocytes # (Manual) PT INR D-Dimer ABG pH POC ABG pCO2 POC ABG pO2 ABG pO2 ABG HCO3 ABG O2 Saturation ABG Base Excess ABG Hemoglobin ABG Oxyhemoglobin ABG Sodium ABG Potassium ABG Glucose Oxyhemoglobin Sodium 136 L Potassium Chloride Carbon Dioxide BUN Creatinine 0.7 L Glucose 150 H POC Glucose 121 H 165 H Lactic Acid Calcium Phosphorus Magnesium Ferritin Lactate Dehydrogenase C-Reactive Protein NT-Pro-B Natriuret Pep Total Protein Albumin Triglycerides Arterial Blood Glucose Ur Specific [place] Coronavirus (PCR) 03/28/21 03/28/21 03/28/21 07:14 11:42 18:22 WBC RBC Hgb Hct MCV MCHC RDW 16.4 H Plt Count Lymph % (Auto) [place] % (Auto) Lymph # (Auto) [place] # (Auto) Seg Neutrophils % Seg Neuts % (Manual) Lymphocytes % (Manual) Monocytes % (Manual) Nucleated RBC % Seg Neutrophils # Seg Neutrophils # Man Lymphocytes # (Manual) Monocytes # (Manual) PT INR D-Dimer ABG pH POC ABG pCO2 POC ABG pO2 ABG pO2 ABG HCO3 ABG O2 Saturation ABG Base Excess ABG Hemoglobin ABG Oxyhemoglobin ABG Sodium ABG Potassium ABG Glucose Oxyhemoglobin Sodium Potassium Chloride Carbon Dioxide BUN Creatinine Glucose POC Glucose 145 H 169 H Lactic Acid Calcium Phosphorus Magnesium Ferritin Lactate Dehydrogenase C-Reactive Protein NT-Pro-B Natriuret Pep Total Protein Albumin Triglycerides Arterial Blood Glucose Ur Specific [place] Coronavirus (PCR) 03/28/21 03/29/21 03/29/21 23:39 04:50 04:50 WBC RBC Hgb 11.0 L Hct 34.9 L MCV MCHC RDW 15.9 H Plt Count Lymph % (Auto) [place] % (Auto) Lymph # (Auto) [place] # (Auto) Seg Neutrophils % Seg Neuts % (Manual) Lymphocytes % (Manual) Monocytes % (Manual) Nucleated RBC % Seg Neutrophils # Seg Neutrophils # Man Lymphocytes # (Manual) Monocytes # (Manual) PT INR D-Dimer ABG pH POC ABG pCO2 POC ABG pO2 ABG pO2 ABG HCO3 ABG O2 Saturation ABG Base Excess ABG Hemoglobin ABG Oxyhemoglobin ABG Sodium ABG Potassium ABG Glucose Oxyhemoglobin Sodium Potassium Chloride Carbon Dioxide 34 H BUN Creatinine 0.6 L Glucose 152 H POC Glucose 139 H Lactic Acid Calcium Phosphorus Magnesium Ferritin Lactate Dehydrogenase C-Reactive Protein NT-Pro-B Natriuret Pep Total Protein Albumin Triglycerides Arterial Blood Glucose Ur Specific [place] Coronavirus (PCR) 03/29/21 03/29/21 03/29/21 05:25 11:34 18:02 WBC RBC Hgb Hct MCV MCHC RDW Plt Count Lymph % (Auto) [place] % (Auto) Lymph # (Auto) [place] # (Auto) Seg Neutrophils % Seg Neuts % (Manual) Lymphocytes % (Manual) Monocytes % (Manual) Nucleated RBC % Seg Neutrophils # Seg Neutrophils # Man Lymphocytes # (Manual) Monocytes # (Manual) PT INR D-Dimer ABG pH POC ABG pCO2 POC ABG pO2 ABG pO2 ABG HCO3 ABG O2 Saturation ABG Base Excess ABG Hemoglobin ABG Oxyhemoglobin ABG Sodium ABG Potassium ABG Glucose Oxyhemoglobin Sodium Potassium Chloride Carbon Dioxide BUN Creatinine Glucose POC Glucose 127 H 169 H 173 H Lactic Acid Calcium Phosphorus Magnesium Ferritin Lactate Dehydrogenase C-Reactive Protein NT-Pro-B Natriuret Pep Total Protein Albumin Triglycerides Arterial Blood Glucose Ur Specific [place] Coronavirus (PCR) 03/29/21 03/30/21 03/30/21 21:42 00:01 05:36 WBC RBC Hgb Hct MCV MCHC RDW 16.7 H Plt Count Lymph % (Auto) [place] % (Auto) Lymph # (Auto) [place] # (Auto) Seg Neutrophils % Seg Neuts % (Manual) Lymphocytes % (Manual) Monocytes % (Manual) Nucleated RBC % Seg Neutrophils # Seg Neutrophils # Man Lymphocytes # (Manual) Monocytes # (Manual) PT INR D-Dimer ABG pH POC ABG pCO2 POC ABG pO2 ABG pO2 ABG HCO3 ABG O2 Saturation ABG Base Excess ABG Hemoglobin ABG Oxyhemoglobin ABG Sodium ABG Potassium ABG Glucose Oxyhemoglobin Sodium Potassium Chloride Carbon Dioxide BUN Creatinine Glucose POC Glucose 184 H 161 H Lactic Acid Calcium Phosphorus Magnesium Ferritin Lactate Dehydrogenase C-Reactive Protein NT-Pro-B Natriuret Pep Total Protein Albumin Triglycerides Arterial Blood Glucose Ur Specific [place] Coronavirus (PCR) 03/30/21 03/30/21 03/30/21 05:36 06:03 11:32 WBC RBC Hgb Hct MCV MCHC RDW Plt Count Lymph % (Auto) [place] % (Auto) Lymph # (Auto) [place] # (Auto) Seg Neutrophils % Seg Neuts % (Manual) Lymphocytes % (Manual) Monocytes % (Manual) Nucleated RBC % Seg Neutrophils # Seg Neutrophils # Man Lymphocytes # (Manual) Monocytes # (Manual) PT INR D-Dimer ABG pH POC ABG pCO2 POC ABG pO2 ABG pO2 ABG HCO3 ABG O2 Saturation ABG Base Excess ABG Hemoglobin ABG Oxyhemoglobin ABG Sodium ABG Potassium ABG Glucose Oxyhemoglobin Sodium Potassium Chloride Carbon Dioxide BUN Creatinine 0.5 L Glucose 127 H POC Glucose 130 H 183 H Lactic Acid Calcium Phosphorus Magnesium Ferritin Lactate Dehydrogenase C-Reactive Protein NT-Pro-B Natriuret Pep Total Protein Albumin Triglycerides Arterial Blood Glucose Ur Specific [place] Coronavirus (PCR) 03/30/21 03/30/21 03/30/21 15:00 16:23 21:07 WBC RBC Hgb Hct MCV MCHC RDW Plt Count Lymph % (Auto) [place] % (Auto) Lymph # (Auto) [place] # (Auto) Seg Neutrophils % Seg Neuts % (Manual) Lymphocytes % (Manual) Monocytes % (Manual) Nucleated RBC % Seg Neutrophils # Seg Neutrophils # Man Lymphocytes # (Manual) Monocytes # (Manual) PT INR D-Dimer ABG pH POC ABG pCO2 POC ABG pO2 ABG pO2 67.2 L ABG HCO3 34.9 H ABG O2 Saturation ABG Base Excess 9.1 H ABG Hemoglobin 11.6 L ABG Oxyhemoglobin ABG Sodium ABG Potassium ABG Glucose Oxyhemoglobin 93.0 L Sodium Potassium Chloride Carbon Dioxide BUN Creatinine Glucose POC Glucose 162 H 146 H Lactic Acid Calcium Phosphorus Magnesium Ferritin Lactate Dehydrogenase C-Reactive Protein NT-Pro-B Natriuret Pep Total Protein Albumin Triglycerides Arterial Blood Glucose Ur Specific [place] Coronavirus (PCR) 03/30/21 03/31/21 03/31/21 23:23 05:44 11:19 WBC RBC Hgb Hct MCV MCHC RDW Plt Count Lymph % (Auto) [place] % (Auto) Lymph # (Auto) [place] # (Auto) Seg Neutrophils % Seg Neuts % (Manual) Lymphocytes % (Manual) Monocytes % (Manual) Nucleated RBC % Seg Neutrophils # Seg Neutrophils # Man Lymphocytes # (Manual) Monocytes # (Manual) PT INR D-Dimer ABG pH POC ABG pCO2 POC ABG pO2 ABG pO2 ABG HCO3 ABG O2 Saturation ABG Base Excess ABG Hemoglobin ABG Oxyhemoglobin ABG Sodium ABG Potassium ABG Glucose Oxyhemoglobin Sodium Potassium Chloride Carbon Dioxide BUN Creatinine Glucose POC Glucose 138 H 180 H 178 H Lactic Acid Calcium Phosphorus Magnesium Ferritin Lactate Dehydrogenase C-Reactive Protein NT-Pro-B Natriuret Pep Total Protein Albumin Triglycerides Arterial Blood Glucose Ur Specific [place] Coronavirus (PCR) 03/31/21 03/31/21 03/31/21 12:50 13:30 16:06 WBC RBC Hgb 11.3 L Hct 35.1 L MCV MCHC RDW 16.5 H Plt Count Lymph % (Auto) 7.6 L [place] % (Auto) 9.5 H Lymph # (Auto) 0.6 L [place] # (Auto) Seg Neutrophils % 78.3 H Seg Neuts % (Manual) Lymphocytes % (Manual) Monocytes % (Manual) Nucleated RBC % Seg Neutrophils # Seg Neutrophils # Man Lymphocytes # (Manual) Monocytes # (Manual) PT INR D-Dimer ABG pH POC ABG pCO2 POC ABG pO2 ABG pO2 99.4 H ABG HCO3 34.9 H ABG O2 Saturation ABG Base Excess 8.4 H ABG Hemoglobin 11.8 L ABG Oxyhemoglobin ABG Sodium ABG Potassium ABG Glucose Oxyhemoglobin Sodium Potassium Chloride Carbon Dioxide BUN Creatinine Glucose POC Glucose 197 H Lactic Acid Calcium Phosphorus Magnesium Ferritin Lactate Dehydrogenase C-Reactive Protein NT-Pro-B Natriuret Pep Total Protein Albumin Triglycerides Arterial Blood Glucose Ur Specific [place] Coronavirus (PCR) 03/31/21 04/01/21 04/01/21 20:51 05:37 07:16 WBC RBC 3.39 L Hgb 10.5 L Hct 31.6 L MCV MCHC RDW 16.1 H Plt Count Lymph % (Auto) [place] % (Auto) Lymph # (Auto) [place] # (Auto) Seg Neutrophils % Seg Neuts % (Manual) Lymphocytes % (Manual) Monocytes % (Manual) Nucleated RBC % Seg Neutrophils # Seg Neutrophils # Man Lymphocytes # (Manual) Monocytes # (Manual) PT INR D-Dimer ABG pH POC ABG pCO2 POC ABG pO2 ABG pO2 ABG HCO3 ABG O2 Saturation ABG Base Excess ABG Hemoglobin ABG Oxyhemoglobin ABG Sodium ABG Potassium ABG Glucose Oxyhemoglobin Sodium Potassium Chloride Carbon Dioxide BUN Creatinine Glucose POC Glucose 140 H 128 H Lactic Acid Calcium Phosphorus Magnesium Ferritin Lactate Dehydrogenase C-Reactive Protein NT-Pro-B Natriuret Pep Total Protein Albumin Triglycerides Arterial Blood Glucose Ur Specific [place] Coronavirus (PCR) 04/01/21 04/01/21 04/01/21 07:16 11:52 16:56 WBC RBC Hgb Hct MCV MCHC RDW Plt Count Lymph % (Auto) [place] % (Auto) Lymph # (Auto) [place] # (Auto) Seg Neutrophils % Seg Neuts % (Manual) Lymphocytes % (Manual) Monocytes % (Manual) Nucleated RBC % Seg Neutrophils # Seg Neutrophils # Man Lymphocytes # (Manual) Monocytes # (Manual) PT INR D-Dimer ABG pH POC ABG pCO2 POC ABG pO2 ABG pO2 ABG HCO3 ABG O2 Saturation ABG Base Excess ABG Hemoglobin ABG Oxyhemoglobin ABG Sodium ABG Potassium ABG Glucose Oxyhemoglobin Sodium Potassium Chloride Carbon Dioxide BUN Creatinine 0.6 L Glucose 131 H POC Glucose 182 H 179 H Lactic Acid Calcium 8.3 L Phosphorus Magnesium Ferritin Lactate Dehydrogenase C-Reactive Protein NT-Pro-B Natriuret Pep Total Protein Albumin Triglycerides Arterial Blood Glucose Ur Specific [place] Coronavirus (PCR) 04/01/21 04/01/21 04/02/21 21:30 23:40 04:26 WBC RBC 3.62 L Hgb 10.8 L Hct 33.9 L MCV MCHC RDW 16.0 H Plt Count Lymph % (Auto) [place] % (Auto) Lymph # (Auto) [place] # (Auto) Seg Neutrophils % Seg Neuts % (Manual) Lymphocytes % (Manual) Monocytes % (Manual) Nucleated RBC % Seg Neutrophils # Seg Neutrophils # Man Lymphocytes # (Manual) Monocytes # (Manual) PT INR D-Dimer ABG pH POC ABG pCO2 POC ABG pO2 ABG pO2 ABG HCO3 ABG O2 Saturation ABG Base Excess ABG Hemoglobin ABG Oxyhemoglobin ABG Sodium ABG Potassium ABG Glucose Oxyhemoglobin Sodium Potassium Chloride Carbon Dioxide BUN Creatinine Glucose POC Glucose 131 H 129 H Lactic Acid Calcium Phosphorus Magnesium Ferritin Lactate Dehydrogenase C-Reactive Protein NT-Pro-B Natriuret Pep Total Protein Albumin Triglycerides Arterial Blood Glucose Ur Specific [place] Coronavirus (PCR) 04/02/21 04/02/21 04/02/21 04:26 05:54 11:35 WBC RBC Hgb Hct MCV MCHC RDW Plt Count Lymph % (Auto) [place] % (Auto) Lymph # (Auto) [place] # (Auto) Seg Neutrophils % Seg Neuts % (Manual) Lymphocytes % (Manual) Monocytes % (Manual) Nucleated RBC % Seg Neutrophils # Seg Neutrophils # Man Lymphocytes # (Manual) Monocytes # (Manual) PT INR D-Dimer ABG pH POC ABG pCO2 POC ABG pO2 ABG pO2 ABG HCO3 ABG O2 Saturation ABG Base Excess ABG Hemoglobin ABG Oxyhemoglobin ABG Sodium ABG Potassium ABG Glucose Oxyhemoglobin Sodium 136 L Potassium Chloride Carbon Dioxide BUN Creatinine 0.6 L Glucose 152 H POC Glucose 151 H 178 H Lactic Acid Calcium Phosphorus Magnesium Ferritin Lactate Dehydrogenase C-Reactive Protein NT-Pro-B Natriuret Pep Total Protein Albumin Triglycerides Arterial Blood Glucose Ur Specific [place] Coronavirus (PCR) 04/02/21 04/02/21 04/02/21 16:11 21:09 23:38 WBC RBC Hgb Hct MCV MCHC RDW Plt Count Lymph % (Auto) [place] % (Auto) Lymph # (Auto) [place] # (Auto) Seg Neutrophils % Seg Neuts % (Manual) Lymphocytes % (Manual) Monocytes % (Manual) Nucleated RBC % Seg Neutrophils # Seg Neutrophils # Man Lymphocytes # (Manual) Monocytes # (Manual) PT INR D-Dimer ABG pH POC ABG pCO2 POC ABG pO2 ABG pO2 ABG HCO3 ABG O2 Saturation ABG Base Excess ABG Hemoglobin ABG Oxyhemoglobin ABG Sodium ABG Potassium ABG Glucose Oxyhemoglobin Sodium Potassium Chloride Carbon Dioxide BUN Creatinine Glucose POC Glucose 186 H 145 H 152 H Lactic Acid Calcium Phosphorus Magnesium Ferritin Lactate Dehydrogenase C-Reactive Protein NT-Pro-B Natriuret Pep Total Protein Albumin Triglycerides Arterial Blood Glucose Ur Specific [place] Coronavirus (PCR) 04/03/21 04/03/21 04/03/21 04:14 04:14 05:27 WBC RBC 3.62 L Hgb 11.0 L Hct 34.0 L MCV MCHC RDW 16.3 H Plt Count Lymph % (Auto) [place] % (Auto) Lymph # (Auto) [place] # (Auto) Seg Neutrophils % Seg Neuts % (Manual) Lymphocytes % (Manual) Monocytes % (Manual) Nucleated RBC % Seg Neutrophils # Seg Neutrophils # Man Lymphocytes # (Manual) Monocytes # (Manual) PT INR D-Dimer ABG pH POC ABG pCO2 POC ABG pO2 ABG pO2 ABG HCO3 ABG O2 Saturation ABG Base Excess ABG Hemoglobin ABG Oxyhemoglobin ABG Sodium ABG Potassium ABG Glucose Oxyhemoglobin Sodium Potassium Chloride Carbon Dioxide 31 H BUN Creatinine 0.6 L Glucose 155 H POC Glucose 165 H Lactic Acid Calcium Phosphorus Magnesium Ferritin Lactate Dehydrogenase C-Reactive Protein NT-Pro-B Natriuret Pep Total Protein Albumin Triglycerides Arterial Blood Glucose Ur Specific [place] Coronavirus (PCR) 04/03/21 04/03/21 04/03/21 11:02 16:19 19:45 WBC RBC Hgb Hct MCV MCHC RDW Plt Count Lymph % (Auto) [place] % (Auto) Lymph # (Auto) [place] # (Auto) Seg Neutrophils % Seg Neuts % (Manual) Lymphocytes % (Manual) Monocytes % (Manual) Nucleated RBC % Seg Neutrophils # Seg Neutrophils # Man Lymphocytes # (Manual) Monocytes # (Manual) PT INR D-Dimer ABG pH POC ABG pCO2 POC ABG pO2 ABG pO2 ABG HCO3 ABG O2 Saturation ABG Base Excess ABG Hemoglobin ABG Oxyhemoglobin ABG Sodium ABG Potassium ABG Glucose Oxyhemoglobin Sodium Potassium Chloride Carbon Dioxide BUN Creatinine Glucose POC Glucose 161 H 180 H 136 H Lactic Acid Calcium Phosphorus Magnesium Ferritin Lactate Dehydrogenase C-Reactive Protein NT-Pro-B Natriuret Pep Total Protein Albumin Triglycerides Arterial Blood Glucose Ur Specific [place] Coronavirus (PCR) 04/04/21 04/04/21 04/04/21 00:21 04:33 04:33 WBC 13.1 H RBC 3.49 L Hgb 10.3 L Hct 32.7 L MCV MCHC RDW 16.1 H Plt Count Lymph % (Auto) [place] % (Auto) Lymph # (Auto) [place] # (Auto) Seg Neutrophils % Seg Neuts % (Manual) Lymphocytes % (Manual) Monocytes % (Manual) Nucleated RBC % Seg Neutrophils # Seg Neutrophils # Man Lymphocytes # (Manual) Monocytes # (Manual) PT INR D-Dimer ABG pH POC ABG pCO2 POC ABG pO2 ABG pO2 ABG HCO3 ABG O2 Saturation ABG Base Excess ABG Hemoglobin ABG Oxyhemoglobin ABG Sodium ABG Potassium ABG Glucose Oxyhemoglobin Sodium Potassium Chloride Carbon Dioxide 31 H BUN Creatinine 0.4 L Glucose 153 H POC Glucose 140 H Lactic Acid Calcium Phosphorus Magnesium Ferritin Lactate Dehydrogenase C-Reactive Protein NT-Pro-B Natriuret Pep Total Protein Albumin Triglycerides Arterial Blood Glucose Ur Specific [place] Coronavirus (PCR) 04/04/21 04/04/21 04/04/21 05:16 11:39 17:22 WBC RBC Hgb Hct MCV MCHC RDW Plt Count Lymph % (Auto) [place] % (Auto) Lymph # (Auto) [place] # (Auto) Seg Neutrophils % Seg Neuts % (Manual) Lymphocytes % (Manual) Monocytes % (Manual) Nucleated RBC % Seg Neutrophils # Seg Neutrophils # Man Lymphocytes # (Manual) Monocytes # (Manual) PT INR D-Dimer ABG pH POC ABG pCO2 POC ABG pO2 ABG pO2 ABG HCO3 ABG O2 Saturation ABG Base Excess ABG Hemoglobin ABG Oxyhemoglobin ABG Sodium ABG Potassium ABG Glucose Oxyhemoglobin Sodium Potassium Chloride Carbon Dioxide BUN Creatinine Glucose POC Glucose 152 H 154 H 198 H Lactic Acid Calcium Phosphorus Magnesium Ferritin Lactate Dehydrogenase C-Reactive Protein NT-Pro-B Natriuret Pep Total Protein Albumin Triglycerides Arterial Blood Glucose Ur Specific [place] Coronavirus (PCR) 04/04/21 04/04/21 04/05/21 20:14 23:16 04:15 WBC RBC 3.21 L Hgb 10.0 L Hct 30.3 L MCV MCHC RDW 16.4 H Plt Count Lymph % (Auto) [place] % (Auto) Lymph # (Auto) [place] # (Auto) Seg Neutrophils % Seg Neuts % (Manual) Lymphocytes % (Manual) Monocytes % (Manual) Nucleated RBC % Seg Neutrophils # Seg Neutrophils # Man Lymphocytes # (Manual) Monocytes # (Manual) PT INR D-Dimer ABG pH POC ABG pCO2 POC ABG pO2 ABG pO2 ABG HCO3 ABG O2 Saturation ABG Base Excess ABG Hemoglobin ABG Oxyhemoglobin ABG Sodium ABG Potassium ABG Glucose Oxyhemoglobin Sodium Potassium Chloride Carbon Dioxide BUN Creatinine Glucose POC Glucose 161 H 139 H Lactic Acid Calcium Phosphorus Magnesium Ferritin Lactate Dehydrogenase C-Reactive Protein NT-Pro-B Natriuret Pep Total Protein Albumin Triglycerides Arterial Blood Glucose Ur Specific [place] Coronavirus (PCR) 04/05/21 04/05/21 04/05/21 04:15 05:34 12:09 WBC RBC Hgb Hct MCV MCHC RDW Plt Count Lymph % (Auto) [place] % (Auto) Lymph # (Auto) [place] # (Auto) Seg Neutrophils % Seg Neuts % (Manual) Lymphocytes % (Manual) Monocytes % (Manual) Nucleated RBC % Seg Neutrophils # Seg Neutrophils # Man Lymphocytes # (Manual) Monocytes # (Manual) PT INR D-Dimer ABG pH POC ABG pCO2 POC ABG pO2 ABG pO2 ABG HCO3 ABG O2 Saturation ABG Base Excess ABG Hemoglobin ABG Oxyhemoglobin ABG Sodium ABG Potassium ABG Glucose Oxyhemoglobin Sodium Potassium Chloride 97.6 L Carbon Dioxide 32 H BUN Creatinine 0.5 L Glucose 147 H POC Glucose 145 H 173 H Lactic Acid Calcium Phosphorus Magnesium Ferritin Lactate Dehydrogenase C-Reactive Protein NT-Pro-B Natriuret Pep Total Protein Albumin Triglycerides Arterial Blood Glucose Ur Specific [place] Coronavirus (PCR) Chest x-ray: pending Allied health notes reviewed: nursing
[2021-04-05] MEDS: oxyCODONE 5 MG TAB PO SCH ×2 (14:07→20:40)
[2021-04-05] MEDS: QUEtiapine 25 MG TAB PO SCH ×2 (16:16→21:03)
[2021-04-05] MEDS: ACETAMINOPHEN 325 MG TAB PO PRN (16:16)
--- NOTE | 2021-04-05 17:04 | Progress Note ---
<MARISABEL DULester - Last Filed: 04/05/21 17:00> Assessment and Plan Assessment and plan: This is a 61-year-old man with HTN and DM admitted with COVID-19 pneumonia, acute hypoxic respiratory failure, sepsis Neuro: Acute encephalopathy -Sedated with fentanyl drip -RASS goal 0 to -1 -Avoid delirium -On Seroquel and Librium -Second dose increased to 250 twice daily -Started on scheduled Lortab for 7 days -Reorientation as needed -Maintain sleep-wake cycle -As needed analgesia -CT head shows no acute intracranial abnormality -Neurology consulted, appreciate recommendations Cardiac: h/o Hypertension -Cardiology consulted, appreciate recommendations -Blood pressure monitoring per protocol -Echocardiogram shows a mildly dilated ascending aorta, normal LV systolic function, mild concentric LVH, LVEF 60 to 65% -Antihypertensive regimen: Hydralazine, metoprolol, amlodipine Respiratory: Acute hypoxic respiratory failure -CCM consulted, appreciate recommendations -Intubated on 03/10 with 7.50 ETT at 24 at the lips, s/p trach on 03/29 -A.m. vent settings: Assist-control rate 12, tidal volume 450, PEEP 8, FiO2 45% -See RT notes for titration -Placed on CPAP trial -A.m. ABG noted -Albuterol as needed, Brovana Pulmicort -VAP bundle -SPO2 monitoring GI: Obesity, external hemorrhoids -24 hours +402 mL -PPI -NTR consulted for tube feedings -BR: Senokot, miralax -BM 04/05 -As needed Preparation H : Urinary retention -Nephrology consulted, appreciate recommendations -Strict intake and output -Renally dose medications -Avoid nephrotoxic medications -Doxazosin increased to twice daily ID: Severe sepsis (POA), COVID-19 pneumonia, stenotrophomonas maltophilia and tracheal aspirate -Infectious disease consulted, appreciate recommendations -Antibiotic therapy with cefepime -Due to low procalcitonin and cultures remaining negative cefepime was discontinued -S/p remdesivir for 5 days -S/p Actemra 03/10/2021 -f/u blood culture -Monitor WBC and temperature curve -steroids tapered off -re culture for fever > 101 Heme: Superficial thrombus in left gastrocnemius vein -Bilateral lower extremity ultrasound negative for DVT, superficial thrombus in left gastrocnemius vein -repeat BLE Doppler US show superficial thrombus -CTA chest shows no gross pulm embolism -Trend CBC -SCDs to BLE while in bed -Transfuse hemoglobin less than 7 -Lovenox prophylactic dosing -Monitor for signs of bleeding Endo: h/o DM -Avoid hypoglycemia -SSI -Accu-Cheks q. 6 -Long-acting insulin, titrate as needed The high probability of a clinically significant, sudden or life threatening deterioration of the [multi] system(s) required my full and direct attention, intervention and personal management. The aggregate critical care time was [60] minutes. This time is in addition to time spent performing reported procedures but includes the following: [x] Data Review and interpretation [x] Patient assessment and monitoring of vital signs [x] Documentation [x] Medication orders and management Disposition Plan: icu Total Time Spent with Patient (Minutes): 60 History Interval history: This is a 61-year-old male with HTN and DM who presented to the emergency department on 03/09 with shortness of breath and hypoxia via EMS. Patient had apparently been feeling ill for proxy 1 week prior to mentation. Upon EMS arrival patient SPO2 was in the low 70s and improved to upper 80slow 90s on nonrebreather and he was transported to [facility] in the emergency department patient was noted to be hypoxic and placed on a BiPAP with improvement to mentation and hypoxia. CXR showed bilateral patchy infiltrates. Lab work showed leukocytosis, elevated D-dimer, hyponatremia, hypochloremia and elevated COVID-19 markers with elevated BNP. CTA chest showed no pulmonary embolism. Patient was admitted to the hospitalist service as a COVID-19 PUI and started on antibiotics and Decadron with consult to infectious disease. 03/09: The patient was seen and evaluated today, and he was found to be hemodynamically stable. The patient is currently on BiPAP for possible COVID-19 pneumonia. He was started on Lovenox 1mg/kg for DVT ppx in the setting of d- dimer > 10,000. Infectious Disease was consulted. The patient is pending a TTE. 03/10: No acute events overnight, patient was intubated in the afternoon transferred to ICU 03/11: Patient started on Lantus, free water flushes increased, propofol drip resumed and oral antihypertensive added. 03/12: lantus increased, k at 5, will monitor. I updated his family and his stated that he is not vaccinated. He does have HTN and she will call the RN to update home medications. She did say he takes bystolic and amlopine. She inquired about ventilator and lab work. She had no further questions. 03/13: KVNG overnight. Patient remains hyperglycemic, basal insulin adjusted and increased to Q12hrs. Patient is overall net positive since admit X1 dose of IV lasix, repeat BMP this afternoon. 03/14: Failed SAT this am due to increase agitation, tachycardia and hypertension. Remains on propofol and fentanyl gtt. Hyperkalemia treated with PO kayaxalate. Patient responded to IV lasix yesterday additional dose again today for a net negative balance. Repeat BMP this afternoon. Insulin adjusted for hyperglycemia. 03/15: Remains encephalopathic, not following commansd. Orders placed for CT head/Brain and Neuro consulted. Rectal bleeding subsided, most likely due to hemorrhoids. H&H is stable will continue to monitor. Kayaxexalate for high K, repeat labs 4 to 6hrs post treatment. 03/16: Still agiated this am, CT head with no acute Abn. CXR and ABG noted- evolving pna and worsening hypoxia, now with low grade fevers. Sputum culture ordered, IV Abx added, ID on cosult. 03/17: This am ABG noted, hypoxia improved. Continue to wean FiO2 as tolerated. Still with low grade fevers, on IV Abx per ID. Still with periods of confusion despite sedation, seroquel increased. F/u CXR in the am 03/18: still very agitated especially when off sedation, with hypertension and tachycardia. Continue sedation for RASS -2, PRN antihypertensive for SPB greater than 160. This febrile this am, continue current IV abx per ID 03/19: Patient afebrile overnight, continue IV Abx per ID. ABG also improved this am, continue to wean FIO2 as tolerated. PRN antihypertensive for hypertension. 03/20: Hyperkalemia treated with Kayexalate, Good discontinued, vancomycin and cefepime stopped started Bactrim by ID. Steroid taper started. 03/21: BB started for hypertension, Seroquel increased for agitation and Librium started no acute events reported overnight. [facility] made vent changes 03/22: Adjustment to anxiolytics, respiratory rate on ventilator per CCM. Patient noted to have bleeding hemorrhoids with clot, requested RN to remove bowel management system and will order Preparation H. 03/23: Given no confirmed DVT or PE (only superficial thrombus noted on Dopplers) therapeutic Lovenox changed to prophylactic Lovenox. Started on doxazosin to help with retention. Consulted surgery for tracheostomy and propofol discontinued. 03/24: Surgery consult completed, patient changed to prophylaxis anticoagulation, started on doxazosin yesterday with plans to remove Good catheter in 48 hours. Patient with slight hypokalemia today and given Kayexalate. No acute events reported overnight. 03/25: No acute events reported overnight. Patient remains on fentanyl drip and on CPAP trial this morning. 03/26: no acute events reported overnight. placed on CPAP this AM, remains on fent/librium. scheduled for trach/peg this week. 03/27: Hypoglycemic this am, will decreased lantus to Qhs. Plan for possible Trach and Peg by Gen Surg this am. Case management to arrange possible LTAC placement 03/28: KVNG overnight. Tolerating PST this am. Plan for trach and PEG tomorrow by Gen. Surgery, NPO after midnight. 03/29: No significant changes overnight. Plan for trach and Peg today. Case management to arrange possible LTAC placement 03/30. S/p Trach and PEG, no complications noted. High residual yesterday despite NPO status, reglan added X2 days. Per RN no residual this am, patient is tolerating TF. Continue to advance TF as tolerated. Norvasc added for h ypertension. Pitting edema also appreciated, some diuretic might be beneficial, will d/w CCM. Continue daily PST as tolerated. 03/31: Patient remains on the vent still on fentanyl gtt with periods of a gitation. PRN analgesia added, plan to start weaning off fentanyl gtt. Febrile this am, completed IV abx course. Will panculture for now, ID is also following. 04/01: Still febrile overnight, cultures result pending, continue IV ABx per ID. Failed PST this am. Continue daily PST and vent wean per CCM. Case management to arrange possible placement. 04/02: KVNG overnight. Fevers improved overnight, continue to follow cultures data, IV ABx per ID. Continue daily PST and wean vent as per CCM. 04/03: Given low procalcitonin, unchanged CXR and cultures with no growth cefepime was discontinued by ID. LTAC evaluation ongoing. No acute events reported overnight. 04/04: IV Lasix stopped today, Seroquel taper started, fentanyl drip on hold and steroids stopped. Pressure support trial again today. 04/05: Patient had to be restarted on fentanyl drip therefore Seroquel was increased back to 250 twice daily and he was started on scheduled narcotics and efforts to wean fentanyl drip. Doxazosin was increased to twice daily as patient still had retention issues on doxazosin once a day. Patient was denied LTAC placement. CPAP trial today. Hospitalist Physical - Constitutional Vitals: Temp Pulse Resp BP Pulse Ox 99 F 113 H 29 H 145/97 89 04/05/21 16:00 04/05/21 16:46 04/05/21 16:46 04/05/21 16:46 04/05/21 16:46 General appearance: Present: no acute distress, well-nourished, obese, other (On the vent, on sedation) - EENT Eyes: Present: PERRL, EOM intact ENT: clear oral mucosa - Neck Neck: Present: normal ROM - Respiratory Respiratory effort: normal Respiratory: bilateral: CTA - Cardiovascular Rhythm: regular Heart Sounds: Present: S1 & S2. Absent: systolic murmur, diastolic murmur - Extremities Extremities: no ischemia, pulses intact, pulses symmetrical, No edema, normal temperature, normal color Peripheral Pulses: within normal limits - Abdominal General gastrointestinal: soft, non-tender, non-distended, normal bowel sounds - Integumentary Integumentary: Present: warm, dry - Psychiatric Psychiatric: other (sedated) - Neurologic Neurologic: other (Does not respond to verbal stimuli, does respond to tactile stimuli. Intact cough/gag. Pupils equal and reactive) Results - Labs CBC & Chem 7: 04/05/21 04:15 04/05/21 04:15 Labs: Laboratory Last Values WBC 8.7 K/mm3 (4.5-11.0) 04/05/21 04:15 RBC 3.21 M/mm3 (3.65-5.03) L 04/05/21 04:15 Hgb 10.0 gm/dl (11.8-15.2) L 04/05/21 04:15 Hct 30.3 % (35.5-45.6) L 04/05/21 04:15 MCV 94 fl (84-94) 04/05/21 04:15 MCH 31 pg (28-32) 04/05/21 04:15 MCHC 33 % (32-34) 04/05/21 04:15 RDW 16.4 % (13.2-15.2) H 04/05/21 04:15 Plt Count 383 K/mm3 (140-440) 04/05/21 04:15 Lymph % (Auto) 7.6 % (13.4-35.0) L 03/31/21 13:30 Mcdonald % (Auto) 9.5 % (0.0-7.3) H 03/31/21 13:30 Eos % (Auto) 4.1 % (0.0-4.3) 03/31/21 13:30 Baso % (Auto) 0.5 % (0.0-1.8) 03/31/21 13:30 Lymph # (Auto) 0.6 K/mm3 (1.2-5.4) L 03/31/21 13:30 Mcdonald # (Auto) 0.7 K/mm3 (0.0-0.8) 03/31/21 13:30 Eos # (Auto) 0.3 K/mm3 (0.0-0.4) 03/31/21 13:30 Baso # (Auto) 0.0 K/mm3 (0.0-0.1) 03/31/21 13:30 Add Manual Diff Complete 03/10/21 04:29 Total Counted 100 03/10/21 04:29 Seg Neutrophils % 78.3 % (40.0-70.0) H 03/31/21 13:30 Seg Neuts % (Manual) 94.0 % (40.0-70.0) H 03/10/21 04:29 Band Neutrophils % 0 % 03/10/21 04:29 Lymphocytes % (Manual) 1.0 % (13.4-35.0) L 03/10/21 04:29 Reactive Lymphs % (Man) 0 % 03/10/21 04:29 Monocytes % (Manual) 5.0 % (0.0-7.3) 03/10/21 04:29 Eosinophils % (Manual) 0 % (0.0-4.3) 03/10/21 04:29 Basophils % (Manual) 0 % (0.0-1.8) 03/10/21 04:29 Metamyelocytes % 0 % 03/10/21 04:29 Myelocytes % 0 % 03/10/21 04:29 Promyelocytes % 0 % 03/10/21 04:29 Blast Cells % 0 % 03/10/21 04:29 Nucleated RBC % 3.0 % (0.0-0.9) H 03/10/21 04:29 Seg Neutrophils # 5.8 K/mm3 (1.8-7.7) 03/31/21 13:30 Seg Neutrophils # Man 19.4 K/mm3 (1.8-7.7) H 03/10/21 04:29 Band Neutrophils # 0.0 K/mm3 03/10/21 04:29 Lymphocytes # (Manual) 0.2 K/mm3 (1.2-5.4) L 03/10/21 04:29 Abs React Lymphs (Man) 0.0 K/mm3 03/10/21 04:29 Monocytes # (Manual) 1.0 K/mm3 (0.0-0.8) H 03/10/21 04:29 Eosinophils # (Manual) 0.0 K/mm3 (0.0-0.4) 03/10/21 04:29 Basophils # (Manual) 0.0 K/mm3 (0.0-0.1) 03/10/21 04:29 Metamyelocytes # 0.0 K/mm3 03/10/21 04:29 Myelocytes # 0.0 K/mm3 03/10/21 04:29 Promyelocytes # 0.0 K/mm3 03/10/21 04:29 Blast Cells # 0.0 K/mm3 03/10/21 04:29 WBC Morphology Not Reportable 03/10/21 04:29 Hypersegmented Neuts Not Reportable 03/10/21 04:29 Hyposegmented Neuts Not Reportable 03/10/21 04:29 Hypogranular Neuts Not Reportable 03/10/21 04:29 Smudge Cells Not Reportable 03/10/21 04:29 Toxic Granulation Not Reportable 03/10/21 04:29 Toxic Vacuolation Not Reportable 03/10/21 04:29 Dohle Bodies Not Reportable 03/10/21 04:29 Pelger-Huet Anomaly Not Reportable 03/10/21 04:29 Mely Rods Not Reportable 03/10/21 04:29 Platelet Estimate Consistent w auto 03/10/21 04:29 Clumped Platelets Not Reportable 03/10/21 04:29 Plt Clumps, EDTA Not Reportable 03/10/21 04:29 Large Platelets Not Reportable 03/10/21 04:29 Giant Platelets Not Reportable 03/10/21 04:29 Platelet Satelliting Not Reportable 03/10/21 04:29 Plt Morphology Comment Not Reportable 03/10/21 04:29 RBC Morphology Normal 03/10/21 04:29 Dimorphic RBCs Not Reportable 03/10/21 04:29 Polychromasia Not Reportable 03/10/21 04:29 Hypochromasia Not Reportable 03/10/21 04:29 Poikilocytosis Not Reportable 03/10/21 04:29 Anisocytosis Not Reportable 03/10/21 04:29 Microcytosis Not Reportable 03/10/21 04:29 Macrocytosis Not Reportable 03/10/21 04:29 Spherocytes Not Reportable 03/10/21 04:29 Pappenheimer Bodies Not Reportable 03/10/21 04:29 Sickle Cells Not Reportable 03/10/21 04:29 Target Cells Not Reportable 03/10/21 04:29 Tear Drop Cells Not Reportable 03/10/21 04:29 Ovalocytes Not Reportable 03/10/21 04:29 Helmet Cells Not Reportable 03/10/21 04:29 [place] Bodies Not Reportable 03/10/21 04:29 [place] Rings Not Reportable 03/10/21 04:29 [place] Cells Not Reportable 03/10/21 04:29 Bite Cells Not Reportable 03/10/21 04:29 Crenated Cell Not Reportable 03/10/21 04:29 Elliptocytes Not Reportable 03/10/21 04:29 Acanthocytes (Spur) Not Reportable 03/10/21 04:29 Rouleaux Not Reportable 03/10/21 04:29 Hemoglobin C Crystals Not Reportable 03/10/21 04:29 Schistocytes Not Reportable 03/10/21 04:29 Malaria parasites Not Reportable 03/10/21 04:29 Shaheen Bodies Not Reportable 03/10/21 04:29 Hem Pathologist Commnt No 03/10/21 04:29 PT 13.0 Sec. (12.2-14.9) 03/29/21 04:50 INR 0.88 (0.87-1.13) 03/29/21 04:50 APTT 28.0 Sec. (24.2-36.6) 03/08/21 20:24 D-Dimer 1359.12 ng/mlDDU (0-234) H 03/17/21 04:40 ABG pH 7.397 pH Units (7.350-7.450) 03/31/21 12:50 POC ABG pCO2 71.9 mmHg (32.0-48.0) H 03/12/21 21:54 ABG pCO2 58.1 mm Hg 03/31/21 12:50 POC ABG pO2 53.6 mmHg (83-108) L 03/12/21 21:54 ABG pO2 99.4 mm Hg (80.0-90.0) H 03/31/21 12:50 POC ABG HCO3 30.0 03/12/21 21:54 ABG HCO3 34.9 mmol/L (20.0-26.0) H 03/31/21 12:50 ABG O2 Saturation 97.3 % (95.0-99.0) 03/31/21 12:50 ABG O2 Content 15.9 (0.0-44) 03/31/21 12:50 POC ABG Base Excess 0.5 03/12/21 21:54 ABG Base Excess 8.4 mmol/L (-2.0-3.0) H 03/31/21 12:50 ABG Hemoglobin 11.8 gm/dl (14.0-18.0) L 03/31/21 12:50 ABG Oxyhemoglobin 84.8 (94-98) L 03/12/21 21:54 ABG Carboxyhemoglobin 1.6 % (0.0-5.0) 03/31/21 12:50 ABG Methemoglobin 0.7 % (0.0-1.5) 03/31/21 12:50 ABG Sodium 134.2 mmol/L (136.0-145.0) L 03/12/21 21:54 ABG Potassium 4.9 mmol/L (3.40-4.50) H 03/12/21 21:54 ABG Chloride 99.0 mmol/L (98-107) 03/12/21 21:54 ABG Glucose 306 mg/dL (65-95) H 03/12/21 21:54 Oxyhemoglobin 95.1 % (95.0-99.0) 03/31/21 12:50 Carboxyhemoglobin 0.6 (0.5-1.5) 03/12/21 21:54 FiO2 40 % 03/31/21 12:50 FiO2 % 50.0 03/12/21 21:54 Sodium 138 mmol/L (137-145) 04/05/21 04:15 Potassium 4.6 mmol/L (3.6-5.0) 04/05/21 04:15 Chloride 97.6 mmol/L (98-107) L 04/05/21 04:15 Carbon Dioxide 32 mmol/L (22-30) H 04/05/21 04:15 Anion Gap 13 mmol/L 04/05/21 04:15 BUN 17 mg/dL (9-20) 04/05/21 04:15 Creatinine 0.5 mg/dL (0.8-1.3) L 04/05/21 04:15 Estimated GFR > 60 ml/min 04/05/21 04:15 BUN/Creatinine Ratio 34 % 04/05/21 04:15 Glucose 147 mg/dL (75-100) H 04/05/21 04:15 POC Glucose 173 mg/dL (70-105) H 04/05/21 12:09 Lactic Acid 1.90 mmol/L (0.7-2.0) 03/08/21 23:51 Calcium 8.7 mg/dL (8.4-10.2) 04/05/21 04:15 Phosphorus 2.90 mg/dL (2.5-4.5) 04/05/21 04:15 Magnesium 2.00 mg/dL (1.7-2.3) 04/05/21 04:15 Ferritin 976.4 ng/mL (30.0-300.0) H 03/15/21 04:00 Total Bilirubin 0.20 mg/dL (0.1-1.2) 03/12/21 08:03 AST 10 units/L (5-40) 03/12/21 08:03 ALT 16 units/L (7-56) 03/12/21 08:03 Alkaline Phosphatase 77 units/L (35-129) 03/12/21 08:03 Lactate Dehydrogenase 630 units/L (91-180) H 03/15/21 06:06 C-Reactive Protein 0.40 mg/dL (0.00-1.30) 03/17/21 04:40 NT-Pro-B Natriuret Pep 1053 pg/mL (0-900) H 03/08/21 20:24 Total Protein 6.0 g/dL (6.3-8.2) L 03/12/21 08:03 Albumin 2.9 g/dL (3.9-5) L 03/12/21 08:03 Albumin/Globulin Ratio 0.9 % 03/12/21 08:03 Triglycerides 305 mg/dL (2-149) H 03/22/21 07:26 Procalcitonin 0.17 ng/mL (<0.15) 04/01/21 07:16 Arterial Blood Glucose 306 mg/dL (65-95) H 03/12/21 21:54 Arterial Blood Ionized Calcium 5.0 mg/dL (4.6-5.3) 03/12/21 21:54 Urine Color Yellow (Yellow) 03/09/21 04:10 Urine Turbidity Slightly-cloudy (Clear) 03/09/21 04:10 Urine pH 5.0 (5.0-7.0) 03/09/21 04:10 Ur Specific [place] 1.041 (1.003-1.030) H 03/09/21 04:10 Urine Protein 100 mg/dl mg/dL (Negative) 03/09/21 04:10 Urine Glucose (UA) Neg mg/dL (Negative) 03/09/21 04:10 Urine Ketones Neg mg/dL (Negative) 03/09/21 04:10 Urine Blood Mod (Negative) 03/09/21 04:10 Urine Nitrite Neg (Negative) 03/09/21 04:10 Urine Bilirubin Neg (Negative) 03/09/21 04:10 Urine Urobilinogen 2.0 mg/dL (<2.0) 03/09/21 04:10 Ur Leukocyte Esterase Neg (Negative) 03/09/21 04:10 Urine WBC (Auto) 4.0 /HPF (0.0-6.0) 03/09/21 04:10 Urine RBC (Auto) 1.0 /HPF (0.0-6.0) 03/09/21 04:10 Urine Bacteria (Auto) 1+ /HPF (Negative) 03/09/21 04:10 Urine Mucus Few /HPF 03/09/21 04:10 Coronavirus (PCR) Positive (Negative) A 03/09/21 08:00 Miscellaneous Test Flexitest 1 03/16/21 13:14 Microbiology: Microbiology 03/31/21 13:30 Peripheral/Venous Blood Culture - Final NO GROWTH AFTER 5 DAYS 03/31/21 14:00 Peripheral/Venous Blood Culture - Final NO GROWTH AFTER 5 DAYS Good/IV: Voiding Method Indwelling Catheter Active Medications - Current Medications Current Medications: Generic Name Dose Route Start Last Admin Trade Name Freq PRN Reason Stop Dose Admin Acetaminophen 650 mg 03/09/21 01:26 04/05/21 16:16 Acetaminophen 325 Mg Tab PO 650 mg Q4H PRN Administration Pain MILD(1-3)/Fever >100.5/RYAO Albuterol 2.5 mg 03/09/21 01:26 03/18/21 21:06 Albuterol 2.5 Mg/3 Ml Nebu IH 2.5 mg Q4HRT PRN Administration Shortness Of Breath Amlodipine Besylate 5 mg 03/30/21 10:00 04/05/21 09:15 Amlodipine 5 Mg Tab PO 5 mg QDAY BLANCA Administration Arformoterol Tartrate 15 mcg 03/11/21 20:00 04/05/21 08:43 Arformoterol 15 Mcg/2 Ml Nebu IH 15 mcg Q12HRT BLANCA Administration Bisacodyl 10 mg 03/26/21 13:43 03/26/21 13:51 Bisacodyl 10 Mg Rect Supp IL 10 mg QDAY PRN Administration Constipation Budesonide 0.25 mg 03/11/21 20:00 04/05/21 08:44 Budesonide 0.25 Mg/2 Ml Nebu IH Not Given Q12HRT BLANCA Chlordiazepoxide HCl 75 mg 03/22/21 18:00 04/05/21 14:03 Chlordiazepoxide 25 Mg Cap PO 75 mg Q6HR BLANCA Administration Dextrose 0 ml 01/24/22 10:52 Dextrose 10% *Hypoglycemia IV PRN PRN Hypoglycemia Doxazosin Mesylate 1 mg 04/05/21 22:00 Doxazosin 1 Mg Tab PO BID BLANCA Enoxaparin Sodium 30 mg 04/01/21 10:00 04/05/21 09:15 Enoxaparin 30 Mg/0.3 Ml Inj SUB-Q 30 mg Q12HR BLANCA Administration Famotidine 20 mg 03/12/21 22:00 04/05/21 09:16 Famotidine 20 Mg Tab FEEDTUBE 20 mg BID [facility] Administration Fentanyl 1 applic 03/31/21 15:00 04/03/21 10:36 Fentanyl 75 Mcg/Hr Patch 72hr TD 1 applic Q3D BLANCA Administration Fentanyl 50 mcg 04/04/21 17:00 04/05/21 08:32 Fentanyl 100 Mcg/2 Ml Inj IV 50 mcg Q10MIN PRN Administration ANALGESIA Haloperidol Lactate 5 mg 04/04/21 15:09 04/04/21 15:18 Haloperidol Lactate 5 Mg/1 Ml Inj IV 04/09/21 15:08 5 mg Q6H PRN Administration Agitation Hydralazine HCl 50 mg 03/23/21 14:26 04/05/21 14:03 Hydralazine 25 Mg Tab PO 50 mg Q8HR BLANCA Administration Hydrophilic Ointment 1 applic 03/10/21 15:39 Lip Therapy Vaseline TP Q2HR PRN Dry Lips Fentanyl Citrate 2,000 mcg in 100 mls @ 6.1 mls/hr 04/04/21 17:00 04/05/21 14:05 Fentanyl Drip Premix IV 1 mcg/kg/hr TITR BLANCA 6.1 mls/hr Administration Protocol 1 MCG/KG/HR Insulin Glargine 15 units 03/29/21 22:00 04/04/21 21:07 Insulin Glargine 100 Units/Ml SUB-Q 15 units QHS [facility] Administration Insulin Human Lispro 0 unit 03/11/21 18:00 04/05/21 14:03 Insulin Lispro 100 Unit/Ml SUB-Q 3 unit Q6HR BLANCA Administration Protocol Metoprolol Tartrate 12.5 mg 03/21/21 22:00 04/05/21 09:16 Metoprolol Tartrate 25 Mg Tab PO 12.5 mg BID [facility] Administration Midazolam HCl 2 mg 03/15/21 08:49 04/05/21 06:46 Midazolam 2 Mg/2 Ml Inj IV 2 mg Q2H PRN Administration VENT SYNCHRONY Multi-Ingred Cream/Lotion/Oil/Oint 1 applic 03/10/21 15:39 Mineral Oil/Petrolatum, White Ophth Oint 3.5 Gm OU Q4HR PRN Dry Eye(s) Ondansetron HCl 4 mg 03/09/21 01:26 Ondansetron 4 Mg/2 Ml Inj IV Q8H PRN Nausea And Vomiting Oxycodone HCl 5 mg 04/05/21 14:00 04/05/21 14:07 Oxycodone 5 Mg Tab PO 5 mg TID BLANCA Administration Phenyleph/Shark Oil/Min Oil/Petrol 1 applic 03/22/21 17:35 03/31/21 18:20 Pe/Mo/Pet,Wh 10 Applic/28 Gm Tube [place] 1 applic Q6HR PRN Administration Hemorrhoids Polyethylene Glycol 17 gm 04/02/21 10:00 04/05/21 09:15 Polyethylene Glycol 3350 17 Gm Powder FEEDTUBE 17 gm QDAY BLANCA Administration Quetiapine Fumarate 200 mg 04/04/21 22:00 04/05/21 09:16 Quetiapine 200 Mg Tab PO 200 mg BID BLANCA Administration Quetiapine Fumarate 50 mg 04/05/21 14:00 04/05/21 16:16 Quetiapine 25 Mg Tab PO 50 mg BID BLANCA Administration Senna/Docusate Sodium 2 tab 04/02/21 10:00 04/05/21 09:15 Sennosides/Docusate Sodium 8.6/50 Mg Tab FEEDTUBE 2 tab BID BLANCA Administration Sodium Chloride 10 ml 03/09/21 10:00 04/05/21 09:16 Sodium Chloride 0.9% 10 Ml Flush Syringe IV 10 ml BID BLANCA Administration Sodium Chloride 10 ml 03/09/21 01:26 04/02/21 21:13 Sodium Chloride 0.9% 10 Ml Flush Syringe IV 10 ml PRN PRN Administration LINE FLUSH Sodium Chloride 10 ml 03/20/21 09:48 Sodium Chloride 0.9% 50 Ml Ivpb IV PRN PRN FLUSH Nutrition/Malnutrition Assess - Dietary Evaluation Nutrition/Malnutrition Findings: Nutrition Notes Start: 03/09/21 08:49 Freq: Status: Active Protocol: Document 03/31/21 14:51 NHALL (Rec: 03/31/21 14:52 BRIAN [id number]) Nutrition Notes Initial or Follow up Reassessment Current Diagnosis Diabetes,Sepsis,Hypertension, Respiratory Failure Other Pertinent Diagnosis COVID-19, Bilateral Pneumonia. Current Diet TF-Glucerna 1.2 at 70 ml/hr Labs/Tests Na 140 yesterday Pertinent Medications Lasix, Reglan, Prednisone Height 5 ft 11 in Weight 122 kg [place] Body Weight (kg) 78.18 BMI 37.5 Weight Status Obese Subjective/Other Information Pt remains on vent support. Trach and PEG placed on /. Per RN, pt tolerating TF at goal rate. Percent of energy/protein needs met: 82% energy 78% pro Burn Absent Trauma Absent #1 Nutrition Diagnosis Inadequate oral intake Diagnosis Progress(for reassessment Continues documentation) Is patient on ventilator? Yes Is Patient Ambulatory and/or Out of Bed No REE-([facility]-confined to bed) [phone] Calculation Used for Recommendations 70-80% energy needs Additional Notes Energy needs: 6408-4432 kcal/ day Pro needs 1.3g/kg adjBW: 130g/ day Fluid needs 1ml/kcal Nutrition Intervention Nutrition Support: Continue Glucerna 1.2 at 70ml/ hr with 110ml water flush q4h. Kcal 2,016 Protein (gm) 101 Carbohydrates (gm) 192 Fat (gm) 101 Fluid (mL) 1,352 Fiber (gm) 27 Goal #1 TF tolerance Goal #2 TF to meet at least 75% energy and pro needs Follow-Up By: 04/07/21 Additional Comments F/U: stable TF, vent status, wt <RAFAEL DOMINGUEZ - Last Filed: 04/06/21 13:22> Assessment and Plan Assessment and plan: I saw and evaluated the patient. Discussed with the nurse practitioner and agree with their findings and plan as documented in this note. Hospitalist Physical - Constitutional Vitals: Temp Pulse Resp BP Pulse Ox 98.8 F 103 H 24 117/77 97 04/06/21 08:00 04/06/21 13:07 04/06/21 12:30 04/06/21 13:07 04/06/21 12:30 Results - Labs CBC & Chem 7: 04/05/21 04:15 04/05/21 04:15 Labs: Laboratory Last Values WBC 8.7 K/mm3 (4.5-11.0) 04/05/21 04:15 RBC 3.21 M/mm3 (3.65-5.03) L 04/05/21 04:15 Hgb 10.0 gm/dl (11.8-15.2) L 04/05/21 04:15 Hct 30.3 % (35.5-45.6) L 04/05/21 04:15 MCV 94 fl (84-94) 04/05/21 04:15 MCH 31 pg (28-32) 04/05/21 04:15 MCHC 33 % (32-34) 04/05/21 04:15 RDW 16.4 % (13.2-15.2) H 04/05/21 04:15 Plt Count 383 K/mm3 (140-440) 04/05/21 04:15 Lymph % (Auto) 7.6 % (13.4-35.0) L 03/31/21 13:30 Mcdonald % (Auto) 9.5 % (0.0-7.3) H 03/31/21 13:30 Eos % (Auto) 4.1 % (0.0-4.3) 03/31/21 13:30 Baso % (Auto) 0.5 % (0.0-1.8) 03/31/21 13:30 Lymph # (Auto) 0.6 K/mm3 (1.2-5.4) L 03/31/21 13:30 Mcdonald # (Auto) 0.7 K/mm3 (0.0-0.8) 03/31/21 13:30 Eos # (Auto) 0.3 K/mm3 (0.0-0.4) 03/31/21 13:30 Baso # (Auto) 0.0 K/mm3 (0.0-0.1) 03/31/21 13:30 Add Manual Diff Complete 03/10/21 04:29 Total Counted 100 03/10/21 04:29 Seg Neutrophils % 78.3 % (40.0-70.0) H 03/31/21 13:30 Seg Neuts % (Manual) 94.0 % (40.0-70.0) H 03/10/21 04:29 Band Neutrophils % 0 % 03/10/21 04:29 Lymphocytes % (Manual) 1.0 % (13.4-35.0) L 03/10/21 04:29 Reactive Lymphs % (Man) 0 % 03/10/21 04:29 Monocytes % (Manual) 5.0 % (0.0-7.3) 03/10/21 04:29 Eosinophils % (Manual) 0 % (0.0-4.3) 03/10/21 04:29 Basophils % (Manual) 0 % (0.0-1.8) 03/10/21 04:29 Metamyelocytes % 0 % 03/10/21 04:29 Myelocytes % 0 % 03/10/21 04:29 Promyelocytes % 0 % 03/10/21 04:29 Blast Cells % 0 % 03/10/21 04:29 Nucleated RBC % 3.0 % (0.0-0.9) H 03/10/21 04:29 Seg Neutrophils # 5.8 K/mm3 (1.8-7.7) 03/31/21 13:30 Seg Neutrophils # Man 19.4 K/mm3 (1.8-7.7) H 03/10/21 04:29 Band Neutrophils # 0.0 K/mm3 03/10/21 04:29 Lymphocytes # (Manual) 0.2 K/mm3 (1.2-5.4) L 03/10/21 04:29 Abs React Lymphs (Man) 0.0 K/mm3 03/10/21 04:29 Monocytes # (Manual) 1.0 K/mm3 (0.0-0.8) H 03/10/21 04:29 Eosinophils # (Manual) 0.0 K/mm3 (0.0-0.4) 03/10/21 04:29 Basophils # (Manual) 0.0 K/mm3 (0.0-0.1) 03/10/21 04:29 Metamyelocytes # 0.0 K/mm3 03/10/21 04:29 Myelocytes # 0.0 K/mm3 03/10/21 04:29 Promyelocytes # 0.0 K/mm3 03/10/21 04:29 Blast Cells # 0.0 K/mm3 03/10/21 04:29 WBC Morphology Not Reportable 03/10/21 04:29 Hypersegmented Neuts Not Reportable 03/10/21 04:29 Hyposegmented Neuts Not Reportable 03/10/21 04:29 Hypogranular Neuts Not Reportable 03/10/21 04:29 Smudge Cells Not Reportable 03/10/21 04:29 Toxic Granulation Not Reportable 03/10/21 04:29 Toxic Vacuolation Not Reportable 03/10/21 04:29 Dohle Bodies Not Reportable 03/10/21 04:29 Pelger-Huet Anomaly Not Reportable 03/10/21 04:29 Mely Rods Not Reportable 03/10/21 04:29 Platelet Estimate Consistent w auto 03/10/21 04:29 Clumped Platelets Not Reportable 03/10/21 04:29 Plt Clumps, EDTA Not Reportable 03/10/21 04:29 Large Platelets Not Reportable 03/10/21 04:29 Giant Platelets Not Reportable 03/10/21 04:29 Platelet Satelliting Not Reportable 03/10/21 04:29 Plt Morphology Comment Not Reportable 03/10/21 04:29 RBC Morphology Normal 03/10/21 04:29 Dimorphic RBCs Not Reportable 03/10/21 04:29 Polychromasia Not Reportable 03/10/21 04:29 Hypochromasia Not Reportable 03/10/21 04:29 Poikilocytosis Not Reportable 03/10/21 04:29 Anisocytosis Not Reportable 03/10/21 04:29 Microcytosis Not Reportable 03/10/21 04:29 Macrocytosis Not Reportable 03/10/21 04:29 Spherocytes Not Reportable 03/10/21 04:29 Pappenheimer Bodies Not Reportable 03/10/21 04:29 Sickle Cells Not Reportable 03/10/21 04:29 Target Cells Not Reportable 03/10/21 04:29 Tear Drop Cells Not Reportable 03/10/21 04:29 Ovalocytes Not Reportable 03/10/21 04:29 Helmet Cells Not Reportable 03/10/21 04:29 [place] Bodies Not Reportable 03/10/21 04:29 [place] Rings Not Reportable 03/10/21 04:29 [place] Cells Not Reportable 03/10/21 04:29 Bite Cells Not Reportable 03/10/21 04:29 Crenated Cell Not Reportable 03/10/21 04:29 Elliptocytes Not Reportable 03/10/21 04:29 Acanthocytes (Spur) Not Reportable 03/10/21 04:29 Rouleaux Not Reportable 03/10/21 04:29 Hemoglobin C Crystals Not Reportable 03/10/21 04:29 Schistocytes Not Reportable 03/10/21 04:29 Malaria parasites Not Reportable 03/10/21 04:29 Shaheen Bodies Not Reportable 03/10/21 04:29 Hem Pathologist Commnt No 03/10/21 04:29 PT 13.0 Sec. (12.2-14.9) 03/29/21 04:50 INR 0.88 (0.87-1.13) 03/29/21 04:50 APTT 28.0 Sec. (24.2-36.6) 03/08/21 20:24 D-Dimer 1359.12 ng/mlDDU (0-234) H 03/17/21 04:40 ABG pH 7.341 pH Units (7.350-7.450) L 04/06/21 11:50 POC ABG pCO2 57.4 mmHg (32.0-48.0) H 04/06/21 04:49 ABG pCO2 73.5 mm Hg 04/06/21 11:50 POC ABG pO2 55.1 mmHg (83-108) L 04/06/21 04:49 ABG pO2 108.9 mm Hg (80.0-90.0) H 04/06/21 11:50 POC ABG HCO3 36.2 04/06/21 04:49 ABG HCO3 38.9 mmol/L (20.0-26.0) H 04/06/21 11:50 ABG O2 Saturation 97.4 % (95.0-99.0) 04/06/21 11:50 ABG O2 Content 15.6 (0.0-44) 04/06/21 11:50 POC ABG Base Excess 10.0 04/06/21 04:49 ABG Base Excess 10.6 mmol/L (-2.0-3.0) H 04/06/21 11:50 ABG Hemoglobin 11.5 gm/dl (14.0-18.0) L 04/06/21 11:50 ABG Oxyhemoglobin 87.5 (94-98) L 04/06/21 04:49 ABG Carboxyhemoglobin 1.5 % (0.0-5.0) 04/06/21 11:50 ABG Methemoglobin 0.7 % (0.0-1.5) 04/06/21 11:50 ABG Sodium 134.2 mmol/L (136.0-145.0) L 03/12/21 21:54 ABG Potassium 4.9 mmol/L (3.40-4.50) H 03/12/21 21:54 ABG Chloride 99.0 mmol/L (98-107) 03/12/21 21:54 ABG Glucose 306 mg/dL (65-95) H 03/12/21 21:54 Oxyhemoglobin 95.3 % (95.0-99.0) 04/06/21 11:50 Carboxyhemoglobin 0.8 (0.5-1.5) 04/06/21 04:49 FiO2 70 % 04/06/21 11:50 FiO2 % 40.0 04/06/21 04:49 Sodium 138 mmol/L (137-145) 04/05/21 04:15 Potassium 4.6 mmol/L (3.6-5.0) 04/05/21 04:15 Chloride 97.6 mmol/L (98-107) L 04/05/21 04:15 Carbon Dioxide 32 mmol/L (22-30) H 04/05/21 04:15 Anion Gap 13 mmol/L 04/05/21 04:15 BUN 17 mg/dL (9-20) 04/05/21 04:15 Creatinine 0.5 mg/dL (0.8-1.3) L 04/05/21 04:15 Estimated GFR > 60 ml/min 04/05/21 04:15 BUN/Creatinine Ratio 34 % 04/05/21 04:15 Glucose 147 mg/dL (75-100) H 04/05/21 04:15 POC Glucose 171 mg/dL (70-105) H 04/06/21 11:42 Lactic Acid 1.90 mmol/L (0.7-2.0) 03/08/21 23:51 Calcium 8.7 mg/dL (8.4-10.2) 04/05/21 04:15 Phosphorus 2.90 mg/dL (2.5-4.5) 04/05/21 04:15 Magnesium 2.00 mg/dL (1.7-2.3) 04/05/21 04:15 Ferritin 976.4 ng/mL (30.0-300.0) H 03/15/21 04:00 Total Bilirubin 0.20 mg/dL (0.1-1.2) 03/12/21 08:03 AST 10 units/L (5-40) 03/12/21 08:03 ALT 16 units/L (7-56) 03/12/21 08:03 Alkaline Phosphatase 77 units/L (35-129) 03/12/21 08:03 Lactate Dehydrogenase 630 units/L (91-180) H 03/15/21 06:06 C-Reactive Protein 0.40 mg/dL (0.00-1.30) 03/17/21 04:40 NT-Pro-B Natriuret Pep 1053 pg/mL (0-900) H 03/08/21 20:24 Total Protein 6.0 g/dL (6.3-8.2) L 03/12/21 08:03 Albumin 2.9 g/dL (3.9-5) L 03/12/21 08:03 Albumin/Globulin Ratio 0.9 % 03/12/21 08:03 Triglycerides 305 mg/dL (2-149) H 03/22/21 07:26 Procalcitonin 0.17 ng/mL (<0.15) 04/01/21 07:16 Arterial Blood Glucose 306 mg/dL (65-95) H 03/12/21 21:54 Arterial Blood Ionized Calcium 5.0 mg/dL (4.6-5.3) 03/12/21 21:54 Urine Color Yellow (Yellow) 03/09/21 04:10 Urine Turbidity Slightly-cloudy (Clear) 03/09/21 04:10 Urine pH 5.0 (5.0-7.0) 03/09/21 04:10 Ur Specific [place] 1.041 (1.003-1.030) H 03/09/21 04:10 Urine Protein 100 mg/dl mg/dL (Negative) 03/09/21 04:10 Urine Glucose (UA) Neg mg/dL (Negative) 03/09/21 04:10 Urine Ketones Neg mg/dL (Negative) 03/09/21 04:10 Urine Blood Mod (Negative) 03/09/21 04:10 Urine Nitrite Neg (Negative) 03/09/21 04:10 Urine Bilirubin Neg (Negative) 03/09/21 04:10 Urine Urobilinogen 2.0 mg/dL (<2.0) 03/09/21 04:10 Ur Leukocyte Esterase Neg (Negative) 03/09/21 04:10 Urine WBC (Auto) 4.0 /HPF (0.0-6.0) 03/09/21 04:10 Urine RBC (Auto) 1.0 /HPF (0.0-6.0) 03/09/21 04:10 Urine Bacteria (Auto) 1+ /HPF (Negative) 03/09/21 04:10 Urine Mucus Few /HPF 03/09/21 04:10 Coronavirus (PCR) Positive (Negative) A 03/09/21 08:00 Miscellaneous Test Flexitest 1 03/16/21 13:14 Microbiology: Microbiology 03/31/21 13:30 Peripheral/Venous Blood Culture - Final NO GROWTH AFTER 5 DAYS 03/31/21 14:00 Peripheral/Venous Blood Culture - Final NO GROWTH AFTER 5 DAYS Good/IV: Voiding Method Indwelling Catheter Active Medications - Current Medications Current Medications: Generic Name Dose Route Start Last Admin Trade Name Freq PRN Reason Stop Dose Admin Acetaminophen 650 mg 03/09/21 01:26 04/05/21 16:16 Acetaminophen 325 Mg Tab PO 650 mg Q4H PRN Administration Pain MILD(1-3)/Fever >100.5/RAYO Albuterol 2.5 mg 03/09/21 01:26 03/18/21 21:06 Albuterol 2.5 Mg/3 Ml Nebu IH 2.5 mg Q4HRT PRN Administration Shortness Of Breath Amlodipine Besylate 5 mg 03/30/21 10:00 04/06/21 09:15 Amlodipine 5 Mg Tab PO 5 mg QDAY BLANCA Administration Arformoterol Tartrate 15 mcg 03/11/21 20:00 04/06/21 08:30 Arformoterol 15 Mcg/2 Ml Nebu IH 15 mcg Q12HRT BLANCA Administration Bisacodyl 10 mg 03/26/21 13:43 03/26/21 13:51 Bisacodyl 10 Mg Rect Supp [place] 10 mg QDAY PRN Administration Constipation Budesonide 0.5 mg 04/06/21 20:00 Budesonide 0.5 Mg/2 Ml Nebu IH Q12HRT [facility] Chlordiazepoxide HCl 75 mg 03/22/21 18:00 04/06/21 13:10 Chlordiazepoxide 25 Mg Cap PO 75 mg Q6HR BLANCA Administration Dextrose 0 ml 03/20/21 10:52 Dextrose 10% *Hypoglycemia IV PRN PRN Hypoglycemia Doxazosin Mesylate 1 mg 04/05/21 22:00 04/06/21 09:15 Doxazosin 1 Mg Tab PO 1 mg BID BLANCA Administration Enoxaparin Sodium 30 mg 04/01/21 10:00 04/06/21 09:15 Enoxaparin 30 Mg/0.3 Ml Inj SUB-Q 30 mg Q12HR BLANCA Administration Famotidine 20 mg 03/12/21 22:00 04/06/21 11:37 Famotidine 20 Mg Tab FEEDTUBE 20 mg BID BLANCA Administration Fentanyl 1 applic 03/31/21 15:00 04/06/21 11:20 Fentanyl 75 Mcg/Hr Patch 72hr TD 1 applic Q3D BLANCA Administration Fentanyl 50 mcg 04/04/21 17:00 04/06/21 02:44 Fentanyl 100 Mcg/2 Ml Inj IV 50 mcg Q10MIN PRN Administration ANALGESIA Furosemide 20 mg 04/06/21 18:00 Furosemide 20 Mg/2 Ml Inj IV 04/07/21 18:01 0600,1800 [facility] Haloperidol Lactate 5 mg 04/04/21 15:09 04/04/21 15:18 Haloperidol Lactate 5 Mg/1 Ml Inj IV 04/09/21 15:08 5 mg Q6H PRN Administration Agitation Hydralazine HCl 50 mg 03/23/21 14:26 04/06/21 13:07 Hydralazine 25 Mg Tab PO 50 mg Q8HR [facility] Administration Hydrophilic Ointment 1 applic 03/10/21 15:39 Lip Therapy Vaseline TP Q2HR PRN Dry Lips Fentanyl Citrate 2,000 mcg in 100 mls @ 6.1 mls/hr 04/04/21 17:00 04/06/21 05:09 Fentanyl Drip Premix IV 2 mcg/kg/hr TITR BLANCA 12.2 mls/hr Administration Protocol 1 MCG/KG/HR Insulin Glargine 15 units 03/29/21 22:00 04/05/21 21:08 Insulin Glargine 100 Units/Ml SUB-Q 15 units QHS BLANCA Administration Insulin Human Lispro 0 unit 03/11/21 18:00 04/06/21 12:00 Insulin Lispro 100 Unit/Ml SUB-Q 3 unit Q6HR BLANCA Administration Protocol Metoprolol Tartrate 12.5 mg 03/21/21 22:00 04/06/21 09:15 Metoprolol Tartrate 25 Mg Tab PO 12.5 mg BID BLANCA Administration Midazolam HCl 2 mg 03/15/21 08:49 04/06/21 04:04 Midazolam 2 Mg/2 Ml Inj IV 2 mg Q2H PRN Administration VENT SYNCHRONY Multi-Ingred Cream/Lotion/Oil/Oint 1 applic 03/10/21 15:39 Mineral Oil/Petrolatum, White Ophth Oint 3.5 Gm OU Q4HR PRN Dry Eye(s) Ondansetron HCl 4 mg 03/09/21 01:26 Ondansetron 4 Mg/2 Ml Inj IV Q8H PRN Nausea And Vomiting Oxycodone HCl 5 mg 04/05/21 14:00 04/06/21 13:07 Oxycodone 5 Mg Tab PO 5 mg TID BLANCA Administration Phenyleph/Shark Oil/Min Oil/Petrol 1 applic 03/22/21 17:35 04/06/21 04:04 Pe/Mo/Pet,Wh 10 Applic/28 Gm Tube [place] 1 applic Q6HR PRN Administration Hemorrhoids Polyethylene Glycol 17 gm 04/02/21 10:00 04/06/21 11:36 Polyethylene Glycol 3350 17 Gm Powder FEEDTUBE 17 gm QDAY BLANCA Administration Quetiapine Fumarate 200 mg 04/04/21 22:00 04/06/21 11:38 Quetiapine 200 Mg Tab PO 200 mg BID BLANCA Administration Quetiapine Fumarate 50 mg 04/05/21 14:00 04/06/21 11:39 Quetiapine 25 Mg Tab PO 50 mg BID BLANCA Administration Senna/Docusate Sodium 2 tab 04/02/21 10:00 04/06/21 11:37 Sennosides/Docusate Sodium 8.6/50 Mg Tab FEEDTUBE 2 tab BID BLANCA Administration Sodium Chloride 10 ml 03/09/21 10:00 04/06/21 09:15 Sodium Chloride 0.9% 10 Ml Flush Syringe IV 10 ml BID BLANCA Administration Sodium Chloride 10 ml 03/09/21 01:26 04/02/21 21:13 Sodium Chloride 0.9% 10 Ml Flush Syringe IV 10 ml PRN PRN Administration LINE FLUSH Sodium Chloride 10 ml 03/20/21 09:48 Sodium Chloride 0.9% 50 Ml Ivpb IV PRN PRN FLUSH Nutrition/Malnutrition Assess - Dietary Evaluation Nutrition/Malnutrition Findings: Nutrition Notes Start: 03/09/21 08:49 Freq: Status: Active Protocol: Document 03/31/21 14:51 BARBRAALL (Rec: 03/31/21 14:52 NHALL [id number]) Nutrition Notes Initial or Follow up Reassessment Current Diagnosis Diabetes,Sepsis,Hypertension, Respiratory Failure Other Pertinent Diagnosis COVID-19, Bilateral Pneumonia. Current Diet TF-Glucerna 1.2 at 70 ml/hr Labs/Tests Na 140 yesterday Pertinent Medications Lasix, Reglan, Prednisone Height 5 ft 11 in Weight 122 kg [place] Body Weight (kg) 78.18 BMI 37.5 Weight Status Obese Subjective/Other Information Pt remains on vent support. Trach and PEG placed on /2. Per RN, pt tolerating TF at goal rate. Percent of energy/protein needs met: 82% energy 78% pro Burn Absent Trauma Absent #1 Nutrition Diagnosis Inadequate oral intake Diagnosis Progress(for reassessment Continues documentation) Is patient on ventilator? Yes Is Patient Ambulatory and/or Out of Bed No REE-([facility]-confined to bed) 2449.140 Calculation Used for Recommendations 70-80% energy needs Additional Notes Energy needs: 4528-3796 kcal/ day Pro needs 1.3g/kg adjBW: 130g/ day Fluid needs 1ml/kcal Nutrition Intervention Nutrition Support: Continue Glucerna 1.2 at 70ml/ hr with 110ml water flush q4h. Kcal 2,016 Protein (gm) 101 Carbohydrates (gm) 192 Fat (gm) 101 Fluid (mL) 1,352 Fiber (gm) 27 Goal #1 TF tolerance Goal #2 TF to meet at least 75% energy and pro needs Follow-Up By: 04/07/21 Additional Comments F/U: stable TF, vent status, wt
[2021-04-05] MEDS: INSULIN GLARGINE 100 UNITS/ML SUB-Q SCH (21:08)
[2021-04-06] MEDS: INSULIN LISPRO 100 UNIT/ML SUB-Q SCH ×3 (00:24→12:00)
[2021-04-06] MEDS: chlordiazePOXIDE 25 MG CAP PO SCH ×5 (00:25→17:28)
[2021-04-06] MEDS: fentaNYL 100 MCG/2 ML INJ IV PRN (02:44)
[2021-04-06] MEDS: PE/MO/PET,WH 10 APPLIC/28 GM TUBE PR PRN (04:04)
[2021-04-06] MEDS: MIDAZOLAM 2 MG/2 ML INJ IV PRN (04:04)
[2021-04-06] MEDS: hydrALAZINE 25 MG TAB PO SCH ×3 (05:07→21:50)
[2021-04-06] MEDS: fentaNYL DRIP Premix 2,000 MCG/100 ML BAG IV SCH (05:09)
--- NOTE | 2021-04-06 05:20 | XRay Report ---
CHEST 1 VIEW INDICATION / CLINICAL INFORMATION: respiratory distress trach to vent. COMPARISON: Chest x-ray 03/29/2021 FINDINGS: SUPPORT DEVICES: Tracheostomy tube is stable. HEART / MEDIASTINUM: Cardiomegaly unchanged. LUNGS / PLEURA: Low lung volumes and bilateral airspace opacities demonstrate minimal change given th e difference in inspiration. No pneumothorax. ADDITIONAL FINDINGS: No significant additional findings. IMPRESSION: 1. Diffuse bilateral airspace opacities suggest minimal change given the difference in inspiration. O verall appearance of the chest is stable. Signer Name: Diaz Bella II, MD Signed: 04/06/2021 5:16 AM Workstation Name: [id number]
[2021-04-06] MEDS ORDERED: FUROSEMIDE 40 MG/4 ML INJ IV ONE (05:32)
[2021-04-06] MEDS: BUDESONIDE 0.25 MG/2 ML NEBU IH SCH (08:30)
[2021-04-06] MEDS: ARFORMOTEROL 15 MCG/2 ML NEBU IH SCH ×2 (08:30→22:08)
[2021-04-06] MEDS: oxyCODONE 5 MG TAB PO SCH ×3 (09:15→21:47)
[2021-04-06] MEDS: DOXAZOSIN 1 MG TAB PO SCH ×2 (09:15→21:47)
[2021-04-06] MEDS: amLODIPine 5 MG TAB PO SCH (09:15)
[2021-04-06] MEDS: METOPROLOL TARTRATE 25 MG TAB PO SCH ×2 (09:15→21:47)
[2021-04-06] MEDS: ENOXAPARIN 30 MG/0.3 ML INJ SUB-Q SCH (09:15)
[2021-04-06] MEDS: fentaNYL 75 MCG/HR PATCH 72HR TD SCH (11:20)
[2021-04-06] MEDS: POLYETHYLENE GLYCOL 3350 17 GM POWDER FEEDTUBE SCH (11:36)
[2021-04-06] MEDS: FAMOTIDINE 20 MG TAB FEEDTUBE SCH ×2 (11:37→21:47)
[2021-04-06] MEDS: SENNOSIDES/DOCUSATE SODIUM 8.6/50 MG TAB FEEDTUBE SCH ×2 (11:37→21:47)
[2021-04-06] MEDS: QUEtiapine 200 MG TAB PO SCH ×2 (11:38→21:47)
[2021-04-06] MEDS: QUEtiapine 25 MG TAB PO SCH ×2 (11:39→22:47)
--- NOTE | 2021-04-06 11:48 | Progress Note ---
Assessment and Plan Acute hypoxemic respiratory failure, on continuous noninvasive ventilation COVID-19 infection Bilateral pneumonia History of diabetes Obesity Hypertension Leukocytosis Possible venous thromboembolic phenomena with significantly elevated D-dimers DM II Elevated serum inflammatory markers to include CRP levels, ferritin and LDH - get bilateral upper extremity dopplers - lasix 20 mg IV q12h X 3 more doses - increased peep to 10 - AB's per ID recommendations - follow clinically, monitor WBC / Fevers - continue LTAC evaluation - continue care as below otherwise; - continue Daily SAT and SBT assessment as tolerated - continue to wean supplemental oxygen for target O2 sat's > 90% acutely - VAP bundle addressed - continue lung protective strategies - continue bronchodilators with [facility] hospital trach care and pulmonary hygiene per RT - wean per pulmonary driven protocols otherwise - continue accuchecks with glycemic control per SSI (While critically ill target blood glucose of 140-180 mg/dL; avoid hypoglycemia) - sedation prn for target RASS 0 to -1 - avoid nephrotoxins, renally dose all medications - avoid benzodiazepine's, reduce the possibility of delirium - AB's per ID rec's - prn analgesia per pain score - Maintenance of sleep-wake cycle, avoid delirium - G.I. & VTE prophylaxis - PT/OT/ROM exercises - mobility protocols for pressure ulcer prophylaxis - Monitor hemodynamics closely - continue other care per attending / other consultants - discharge planning ongoing concurrently COVID SPECIFIC INTERVENTIONS - Remdesivir as per ID/Pulmonary developed protocols (received) - continue systemic steroids for severe COVID-19 infection empirically (Decadron) - follow repeat COVID tests results - zinc and vitamin C supplementation - Monitor inflammatory markers per facility protocol - ferritin, Ddimer, CRP - therapeutic anticoagulation per system Protocol based on d-dimer and clinical considerations (treatment dose) - contact and airborne isolation discontinued .... Re-evaluate in am & prn CONDITION: CRITICAL PROGNOSIS: GUARDED CODE STATUS: FULL CODE The high probability of a clinically significant, sudden or life-threatening deterioration of the [respiratory, cardiovascular & hematologic] system(s) required my full and direct attention, intervention and personal management. The aggregate critical care time was [32] minutes without overlap. Time includes spent on; [x] Data Review and interpretation [x] Patient assessment and monitoring of vital signs [x] Documentation [x] Medication orders and management Subjective Date of service: 04/06/21 Principal diagnosis: COVID-19 infection; DM II; Bilateral pneumonia; Obesity; HTN Interval history: Patient is seen today for: Acute hypoxemic respiratory failure; COVID-19 infection; DM II; Bilateral pneumonia; Obesity; HTN Seen and examined at bedside; 24hour events reviewed; nursing and respiratory care staff consulted; no adverse overnight events reported to me; resting in bed; remains on MVS; decompensated overnight and FiO2 bumped to 100%; weaned down to 70% now; CXR with increased infiltrates; + upper extremity swelling bilaterally Objective Vital Signs - 12hr 04/06/21 04/06/21 04/06/21 00:00 00:16 00:30 Temperature 98.7 F Pulse Rate 105 H 104 H 104 H Pulse Rate [ Bilateral Throughout] Pulse Rate [ 103 H From Monitor] Respiratory 22 21 22 Rate Respiratory Rate [Bilateral Throughout] Blood Pressure 116/62 116/62 116/62 O2 Sat by Pulse 100 100 100 Oximetry O2 Sat by Pulse Oximetry [ Assessment] 04/06/21 04/06/21 04/06/21 00:34 00:46 01:00 Temperature Pulse Rate 105 H 107 H 111 H Pulse Rate [ Bilateral Throughout] Pulse Rate [ From Monitor] Respiratory 22 27 H 33 H Rate Respiratory Rate [Bilateral Throughout] Blood Pressure 116/62 116/62 133/78 O2 Sat by Pulse 100 95 91 Oximetry O2 Sat by Pulse 100 Oximetry [ Assessment] 04/06/21 04/06/21 04/06/21 01:16 01:30 01:46 Temperature Pulse Rate 111 H 110 H 109 H Pulse Rate [ Bilateral Throughout] Pulse Rate [ From Monitor] Respiratory 31 H 31 H 29 H Rate Respiratory Rate [Bilateral Throughout] Blood Pressure 133/78 133/78 133/78 O2 Sat by Pulse 92 92 92 Oximetry O2 Sat by Pulse Oximetry [ Assessment] 04/06/21 04/06/21 04/06/21 02:00 02:16 02:30 Temperature Pulse Rate 113 H 123 H 115 H Pulse Rate [ Bilateral Throughout] Pulse Rate [ From Monitor] Respiratory 34 H 54 H 27 H Rate Respiratory Rate [Bilateral Throughout] Blood Pressure 125/83 125/83 125/83 O2 Sat by Pulse 89 65 L 100 Oximetry O2 Sat by Pulse Oximetry [ Assessment] 04/06/21 04/06/21 04/06/21 02:44 02:46 03:00 Temperature Pulse Rate 115 H 113 H Pulse Rate [ Bilateral Throughout] Pulse Rate [ From Monitor] Respiratory 42 H 35 H 29 H Rate Respiratory Rate [Bilateral Throughout] Blood Pressure 125/83 120/65 O2 Sat by Pulse 90 90 Oximetry O2 Sat by Pulse Oximetry [ Assessment] 04/06/21 04/06/21 04/06/21 03:16 03:30 03:46 Temperature Pulse Rate 113 H 111 H 120 H Pulse Rate [ Bilateral Throughout] Pulse Rate [ From Monitor] Respiratory 29 H 23 35 H Rate Respiratory Rate [Bilateral Throughout] Blood Pressure 120/65 120/65 120/65 O2 Sat by Pulse 90 100 89 Oximetry O2 Sat by Pulse Oximetry [ Assessment] 04/06/21 04/06/21 04/06/21 04:00 04:16 04:30 Temperature 99.9 F H Pulse Rate 123 H 120 H 117 H Pulse Rate [ Bilateral Throughout] Pulse Rate [ 103 H From Monitor] Respiratory 35 H 37 H 34 H Rate Respiratory Rate [Bilateral Throughout] Blood Pressure 120/65 148/96 148/96 O2 Sat by Pulse 94 85 86 Oximetry O2 Sat by Pulse Oximetry [ Assessment] 04/06/21 04/06/21 04/06/21 04:46 04:49 05:00 Temperature Pulse Rate 130 H 123 H 124 H Pulse Rate [ Bilateral Throughout] Pulse Rate [ From Monitor] Respiratory 45 H 20 Rate Respiratory Rate [Bilateral Throughout] Blood Pressure 148/96 148/96 139/79 O2 Sat by Pulse 86 98 98 Oximetry O2 Sat by Pulse Oximetry [ Assessment] 04/06/21 04/06/21 04/06/21 05:07 05:16 05:30 Temperature Pulse Rate 121 H 122 H 118 H Pulse Rate [ Bilateral Throughout] Pulse Rate [ From Monitor] Respiratory 26 H 22 Rate Respiratory Rate [Bilateral Throughout] Blood Pressure 139/79 139/79 139/79 O2 Sat by Pulse 98 98 Oximetry O2 Sat by Pulse Oximetry [ Assessment] 04/06/21 04/06/21 04/06/21 05:46 06:00 06:16 Temperature Pulse Rate 116 H 116 H 115 H Pulse Rate [ Bilateral Throughout] Pulse Rate [ From Monitor] Respiratory 23 22 23 Rate Respiratory Rate [Bilateral Throughout] Blood Pressure 139/79 113/60 113/60 O2 Sat by Pulse 98 98 98 Oximetry O2 Sat by Pulse Oximetry [ Assessment] 02/10/22 02/10/22 02/10/22 06:30 06:46 07:00 Temperature Pulse Rate 114 H 114 H 114 H Pulse Rate [ Bilateral Throughout] Pulse Rate [ From Monitor] Respiratory 24 20 22 Rate Respiratory Rate [Bilateral Throughout] Blood Pressure 113/60 113/60 113/65 O2 Sat by Pulse 98 98 98 Oximetry O2 Sat by Pulse Oximetry [ Assessment] 04/06/21 04/06/21 04/06/21 07:16 07:30 07:46 Temperature Pulse Rate 113 H 113 H 112 H Pulse Rate [ Bilateral Throughout] Pulse Rate [ From Monitor] Respiratory 21 22 17 Rate Respiratory Rate [Bilateral Throughout] Blood Pressure 113/65 113/65 113/65 O2 Sat by Pulse 98 98 97 Oximetry O2 Sat by Pulse Oximetry [ Assessment] 04/06/21 04/06/21 04/06/21 08:00 08:16 08:30 Temperature 98.8 F Pulse Rate 111 H 117 H 120 H Pulse Rate [ 120 H Bilateral Throughout] Pulse Rate [ 103 H From Monitor] Respiratory 18 18 27 H Rate Respiratory 26 H Rate [Bilateral Throughout] Blood Pressure 114/64 114/64 114/64 O2 Sat by Pulse 98 94 97 Oximetry O2 Sat by Pulse Oximetry [ Assessment] 04/06/21 04/06/21 04/06/21 08:46 09:00 09:15 Temperature Pulse Rate 120 H 120 H 117 H Pulse Rate [ Bilateral Throughout] Pulse Rate [ 103 H From Monitor] Respiratory 29 H 26 H Rate Respiratory Rate [Bilateral Throughout] Blood Pressure 114/64 120/73 112/62 O2 Sat by Pulse 96 94 Oximetry O2 Sat by Pulse Oximetry [ Assessment] 04/06/21 04/06/21 04/06/21 09:16 09:30 09:46 Temperature Pulse Rate 118 H 119 H 113 H Pulse Rate [ Bilateral Throughout] Pulse Rate [ From Monitor] Respiratory 22 23 24 Rate Respiratory Rate [Bilateral Throughout] Blood Pressure 120/73 120/73 120/73 O2 Sat by Pulse 95 95 96 Oximetry O2 Sat by Pulse Oximetry [ Assessment] 04/06/21 10:00 Temperature Pulse Rate 104 H Pulse Rate [ Bilateral Throughout] Pulse Rate [ From Monitor] Respiratory 21 Rate Respiratory Rate [Bilateral Throughout] Blood Pressure 113/62 O2 Sat by Pulse 97 Oximetry O2 Sat by Pulse Oximetry [ Assessment] Constitutional: agitated, appears uncomfortable, other (elderly obese male with mildly increased respiratory effort at rest) Eyes: non-icteric ENT: oropharynx moist, other (+ midline tracheostomy) Neck: supple, no lymphadenopathy, no JVD, other (large circumference) Effort: mildly labored Ascultation: Bilateral: diminished breath sounds, rhonchi Percussion: Bilateral: not dull Cardiovascular: regular rate and rhythm, other (tachycardia, S1,S2) Gastrointestinal: normoactive bowel sounds, soft, non-tender, non-distended (protuberant) Integumentary: normal Extremities: no cyanosis, pulses normal, no ischemia or petechiae, edema (upper extremities), other Neurologic: non-focal exam (grossly), pupils equal and round, other (sedated) Psychiatric: other (unable to assess re: AMS) CBC and BMP: 04/07/21 06:08 04/07/21 06:08 ABG, PT/INR, D-dimer: ABG ABG pH 7.418 (7.320-7.450) 04/06/21 04:49 POC ABG pCO2 57.4 mmHg (32.0-48.0) H 04/06/21 04:49 ABG pCO2 58.1 mm Hg 03/31/21 12:50 POC ABG pO2 55.1 mmHg (83-108) L 04/06/21 04:49 ABG pO2 99.4 mm Hg (80.0-90.0) H 03/31/21 12:50 POC ABG HCO3 36.2 04/06/21 04:49 ABG O2 Saturation 88.3 (0-100) 04/06/21 04:49 PT/INR, D-dimer PT 13.0 Sec. (12.2-14.9) 03/29/21 04:50 INR 0.88 (0.87-1.13) 03/29/21 04:50 D-Dimer 1359.12 ng/mlDDU (0-234) H 03/17/21 04:40 Abnormal lab findings: Abnormal Labs 03/08/21 03/08/21 03/08/21 20:24 20:24 20:24 WBC 22.6 H RBC 5.44 H Hgb 15.7 H Hct 49.2 H MCV MCHC RDW Plt Count Lymph % (Auto) [place] % (Auto) Lymph # (Auto) [place] # (Auto) Seg Neutrophils % Seg Neuts % (Manual) 83.0 H Lymphocytes % (Manual) 9.0 L Monocytes % (Manual) 8.0 H Nucleated RBC % Seg Neutrophils # Seg Neutrophils # Man 18.8 H Lymphocytes # (Manual) Monocytes # (Manual) 1.8 H PT 16.1 H INR 1.17 H D-Dimer > 77805 H ABG pH POC ABG pCO2 POC ABG pO2 ABG pO2 ABG HCO3 ABG O2 Saturation ABG Base Excess ABG Hemoglobin ABG Oxyhemoglobin ABG Sodium ABG Potassium ABG Glucose Oxyhemoglobin Sodium 136 L Potassium Chloride 93.9 L Carbon Dioxide BUN 29 H Creatinine Glucose 208 H POC Glucose Lactic Acid Calcium Phosphorus Magnesium Ferritin Lactate Dehydrogenase 624 H C-Reactive Protein 18.00 H NT-Pro-B Natriuret Pep 1053 H Total Protein Albumin Triglycerides Arterial Blood Glucose Ur Specific [place] Coronavirus (PCR) 03/08/21 03/08/21 03/09/21 20:24 20:24 04:10 WBC RBC Hgb Hct MCV MCHC RDW Plt Count Lymph % (Auto) [place] % (Auto) Lymph # (Auto) [place] # (Auto) Seg Neutrophils % Seg Neuts % (Manual) Lymphocytes % (Manual) Monocytes % (Manual) Nucleated RBC % Seg Neutrophils # Seg Neutrophils # Man Lymphocytes # (Manual) Monocytes # (Manual) PT INR D-Dimer ABG pH POC ABG pCO2 POC ABG pO2 ABG pO2 ABG HCO3 ABG O2 Saturation ABG Base Excess ABG Hemoglobin ABG Oxyhemoglobin ABG Sodium ABG Potassium ABG Glucose Oxyhemoglobin Sodium Potassium Chloride Carbon Dioxide BUN Creatinine Glucose POC Glucose Lactic Acid 2.10 H* Calcium Phosphorus Magnesium Ferritin 877.5 H Lactate Dehydrogenase C-Reactive Protein NT-Pro-B Natriuret Pep Total Protein Albumin Triglycerides Arterial Blood Glucose Ur Specific [place] 1.041 H Coronavirus (PCR) 03/09/21 03/09/21 03/09/21 07:46 08:00 13:01 WBC RBC Hgb Hct MCV MCHC RDW Plt Count Lymph % (Auto) [place] % (Auto) Lymph # (Auto) [place] # (Auto) Seg Neutrophils % Seg Neuts % (Manual) Lymphocytes % (Manual) Monocytes % (Manual) Nucleated RBC % Seg Neutrophils # Seg Neutrophils # Man Lymphocytes # (Manual) Monocytes # (Manual) PT INR D-Dimer ABG pH POC ABG pCO2 POC ABG pO2 ABG pO2 ABG HCO3 ABG O2 Saturation ABG Base Excess ABG Hemoglobin ABG Oxyhemoglobin ABG Sodium ABG Potassium ABG Glucose Oxyhemoglobin Sodium Potassium Chloride Carbon Dioxide BUN Creatinine Glucose POC Glucose 191 H 182 H Lactic Acid Calcium Phosphorus Magnesium Ferritin Lactate Dehydrogenase C-Reactive Protein NT-Pro-B Natriuret Pep Total Protein Albumin Triglycerides Arterial Blood Glucose Ur Specific [place] Coronavirus (PCR) Positive A 03/09/21 03/09/21 03/09/21 15:19 17:48 18:10 WBC RBC Hgb Hct MCV MCHC RDW Plt Count Lymph % (Auto) [place] % (Auto) Lymph # (Auto) [place] # (Auto) Seg Neutrophils % Seg Neuts % (Manual) Lymphocytes % (Manual) Monocytes % (Manual) Nucleated RBC % Seg Neutrophils # Seg Neutrophils # Man Lymphocytes # (Manual) Monocytes # (Manual) PT INR D-Dimer ABG pH POC ABG pCO2 POC ABG pO2 ABG pO2 47.3 L ABG HCO3 26.3 H ABG O2 Saturation 83.7 L ABG Base Excess ABG Hemoglobin ABG Oxyhemoglobin ABG Sodium ABG Potassium ABG Glucose Oxyhemoglobin 82.1 L Sodium Potassium Chloride Carbon Dioxide BUN 29 H Creatinine Glucose 214 H POC Glucose 194 H Lactic Acid Calcium Phosphorus Magnesium Ferritin Lactate Dehydrogenase C-Reactive Protein NT-Pro-B Natriuret Pep Total Protein Albumin 3.4 L Triglycerides Arterial Blood Glucose Ur Specific [place] Coronavirus (PCR) 03/09/21 03/10/21 03/10/21 20:40 04:29 04:29 WBC 20.6 H RBC 5.07 H Hgb Hct 46.2 H MCV MCHC RDW Plt Count Lymph % (Auto) [place] % (Auto) Lymph # (Auto) [place] # (Auto) Seg Neutrophils % Seg Neuts % (Manual) 94.0 H Lymphocytes % (Manual) 1.0 L Monocytes % (Manual) Nucleated RBC % 3.0 H Seg Neutrophils # Seg Neutrophils # Man 19.4 H Lymphocytes # (Manual) 0.2 L Monocytes # (Manual) 1.0 H PT INR D-Dimer ABG pH POC ABG pCO2 POC ABG pO2 ABG pO2 ABG HCO3 ABG O2 Saturation ABG Base Excess ABG Hemoglobin ABG Oxyhemoglobin ABG Sodium ABG Potassium ABG Glucose Oxyhemoglobin Sodium Potassium Chloride Carbon Dioxide BUN 29 H Creatinine Glucose 188 H POC Glucose 176 H Lactic Acid Calcium Phosphorus Magnesium Ferritin Lactate Dehydrogenase C-Reactive Protein NT-Pro-B Natriuret Pep Total Protein Albumin 3.3 L Triglycerides Arterial Blood Glucose Ur Specific [place] Coronavirus (PCR) 03/10/21 03/10/21 03/10/21 05:22 10:27 15:25 WBC RBC Hgb Hct MCV MCHC RDW Plt Count Lymph % (Auto) [place] % (Auto) Lymph # (Auto) [place] # (Auto) Seg Neutrophils % Seg Neuts % (Manual) Lymphocytes % (Manual) Monocytes % (Manual) Nucleated RBC % Seg Neutrophils # Seg Neutrophils # Man Lymphocytes # (Manual) Monocytes # (Manual) PT INR D-Dimer ABG pH 7.488 H 7.488 H POC ABG pCO2 POC ABG pO2 ABG pO2 47.7 L 50.5 L ABG HCO3 ABG O2 Saturation 86.2 L 87.9 L ABG Base Excess ABG Hemoglobin ABG Oxyhemoglobin ABG Sodium ABG Potassium ABG Glucose Oxyhemoglobin 84.6 L 86.2 L Sodium Potassium Chloride Carbon Dioxide BUN Creatinine Glucose POC Glucose 155 H Lactic Acid Calcium Phosphorus Magnesium Ferritin Lactate Dehydrogenase C-Reactive Protein NT-Pro-B Natriuret Pep Total Protein Albumin Triglycerides Arterial Blood Glucose Ur Specific [place] Coronavirus (PCR) 03/10/21 03/10/21 03/11/21 18:10 18:55 00:07 WBC RBC Hgb Hct MCV MCHC RDW Plt Count Lymph % (Auto) [place] % (Auto) Lymph # (Auto) [place] # (Auto) Seg Neutrophils % Seg Neuts % (Manual) Lymphocytes % (Manual) Monocytes % (Manual) Nucleated RBC % Seg Neutrophils # Seg Neutrophils # Man Lymphocytes # (Manual) Monocytes # (Manual) PT INR D-Dimer ABG pH 7.343 L POC ABG pCO2 POC ABG pO2 ABG pO2 60.4 L ABG HCO3 27.9 H ABG O2 Saturation 88.7 L ABG Base Excess ABG Hemoglobin ABG Oxyhemoglobin ABG Sodium ABG Potassium ABG Glucose Oxyhemoglobin 86.9 L Sodium Potassium Chloride Carbon Dioxide BUN Creatinine Glucose POC Glucose 187 H 139 H Lactic Acid Calcium Phosphorus Magnesium Ferritin Lactate Dehydrogenase C-Reactive Protein NT-Pro-B Natriuret Pep Total Protein Albumin Triglycerides Arterial Blood Glucose Ur Specific [place] Coronavirus (PCR) 03/11/21 03/11/21 03/11/21 02:09 04:28 08:06 WBC RBC Hgb Hct MCV MCHC RDW Plt Count Lymph % (Auto) [place] % (Auto) Lymph # (Auto) [place] # (Auto) Seg Neutrophils % Seg Neuts % (Manual) Lymphocytes % (Manual) Monocytes % (Manual) Nucleated RBC % Seg Neutrophils # Seg Neutrophils # Man Lymphocytes # (Manual) Monocytes # (Manual) PT INR D-Dimer ABG pH 7.277 L POC ABG pCO2 55.9 H POC ABG pO2 54.4 L ABG pO2 ABG HCO3 ABG O2 Saturation ABG Base Excess ABG Hemoglobin ABG Oxyhemoglobin 83.0 L ABG Sodium ABG Potassium 4.8 H ABG Glucose 180 H Oxyhemoglobin Sodium Potassium Chloride Carbon Dioxide BUN 38 H Creatinine Glucose 249 H POC Glucose 278 H Lactic Acid Calcium Phosphorus Magnesium Ferritin Lactate Dehydrogenase C-Reactive Protein NT-Pro-B Natriuret Pep Total Protein Albumin 3.2 L Triglycerides Arterial Blood Glucose 180 H Ur Specific [place] Coronavirus (PCR) 03/11/21 03/11/21 03/11/21 11:29 15:06 15:48 WBC RBC Hgb Hct MCV MCHC RDW Plt Count Lymph % (Auto) [place] % (Auto) Lymph # (Auto) [place] # (Auto) Seg Neutrophils % Seg Neuts % (Manual) Lymphocytes % (Manual) Monocytes % (Manual) Nucleated RBC % Seg Neutrophils # Seg Neutrophils # Man Lymphocytes # (Manual) Monocytes # (Manual) PT INR D-Dimer ABG pH 7.260 L POC ABG pCO2 POC ABG pO2 ABG pO2 53.5 L ABG HCO3 29.5 H ABG O2 Saturation 84.0 L ABG Base Excess ABG Hemoglobin ABG Oxyhemoglobin ABG Sodium ABG Potassium ABG Glucose Oxyhemoglobin 82.3 L Sodium Potassium Chloride Carbon Dioxide BUN Creatinine Glucose POC Glucose 288 H 295 H Lactic Acid Calcium Phosphorus Magnesium Ferritin Lactate Dehydrogenase C-Reactive Protein NT-Pro-B Natriuret Pep Total Protein Albumin Triglycerides Arterial Blood Glucose Ur Specific [place] Coronavirus (PCR) 03/12/21 03/12/21 03/12/21 00:01 05:24 08:03 WBC RBC Hgb Hct MCV MCHC RDW Plt Count Lymph % (Auto) [place] % (Auto) Lymph # (Auto) [place] # (Auto) Seg Neutrophils % Seg Neuts % (Manual) Lymphocytes % (Manual) Monocytes % (Manual) Nucleated RBC % Seg Neutrophils # Seg Neutrophils # Man Lymphocytes # (Manual) Monocytes # (Manual) PT INR D-Dimer ABG pH POC ABG pCO2 POC ABG pO2 ABG pO2 ABG HCO3 ABG O2 Saturation ABG Base Excess ABG Hemoglobin ABG Oxyhemoglobin ABG Sodium ABG Potassium ABG Glucose Oxyhemoglobin Sodium 135 L Potassium Chloride Carbon Dioxide BUN 48 H Creatinine Glucose 358 H POC Glucose 304 H 310 H Lactic Acid Calcium Phosphorus Magnesium Ferritin Lactate Dehydrogenase C-Reactive Protein NT-Pro-B Natriuret Pep Total Protein 6.0 L Albumin 2.9 L Triglycerides Arterial Blood Glucose Ur Specific [place] Coronavirus (PCR) 03/12/21 03/12/21 03/12/21 08:03 10:43 11:31 WBC 14.6 H RBC Hgb Hct MCV MCHC RDW Plt Count Lymph % (Auto) [place] % (Auto) Lymph # (Auto) [place] # (Auto) Seg Neutrophils % Seg Neuts % (Manual) Lymphocytes % (Manual) Monocytes % (Manual) Nucleated RBC % Seg Neutrophils # Seg Neutrophils # Man Lymphocytes # (Manual) Monocytes # (Manual) PT INR D-Dimer ABG pH 7.248 L POC ABG pCO2 POC ABG pO2 ABG pO2 73.7 L ABG HCO3 32.0 H ABG O2 Saturation 93.9 L ABG Base Excess ABG Hemoglobin ABG Oxyhemoglobin ABG Sodium ABG Potassium ABG Glucose Oxyhemoglobin 92.1 L Sodium Potassium Chloride Carbon Dioxide BUN Creatinine Glucose POC Glucose 359 H Lactic Acid Calcium Phosphorus Magnesium Ferritin Lactate Dehydrogenase C-Reactive Protein NT-Pro-B Natriuret Pep Total Protein Albumin Triglycerides Arterial Blood Glucose Ur Specific [place] Coronavirus (PCR) 03/12/21 03/12/21 03/13/21 17:20 21:54 00:02 WBC RBC Hgb Hct MCV MCHC RDW Plt Count Lymph % (Auto) [place] % (Auto) Lymph # (Auto) [place] # (Auto) Seg Neutrophils % Seg Neuts % (Manual) Lymphocytes % (Manual) Monocytes % (Manual) Nucleated RBC % Seg Neutrophils # Seg Neutrophils # Man Lymphocytes # (Manual) Monocytes # (Manual) PT INR D-Dimer ABG pH 7.238 L POC ABG pCO2 71.9 H POC ABG pO2 53.6 L ABG pO2 ABG HCO3 ABG O2 Saturation ABG Base Excess ABG Hemoglobin ABG Oxyhemoglobin 84.8 L ABG Sodium 134.2 L ABG Potassium 4.9 H ABG Glucose 306 H Oxyhemoglobin Sodium Potassium Chloride Carbon Dioxide BUN Creatinine Glucose POC Glucose 374 H 308 H Lactic Acid Calcium Phosphorus Magnesium Ferritin Lactate Dehydrogenase C-Reactive Protein NT-Pro-B Natriuret Pep Total Protein Albumin Triglycerides Arterial Blood Glucose 306 H Ur Specific [place] Coronavirus (PCR) 03/13/21 03/13/21 03/13/21 05:22 05:44 05:44 WBC 13.9 H RBC Hgb Hct MCV MCHC RDW Plt Count Lymph % (Auto) [place] % (Auto) Lymph # (Auto) [place] # (Auto) Seg Neutrophils % Seg Neuts % (Manual) Lymphocytes % (Manual) Monocytes % (Manual) Nucleated RBC % Seg Neutrophils # Seg Neutrophils # Man Lymphocytes # (Manual) Monocytes # (Manual) PT INR D-Dimer 3567.97 H ABG pH POC ABG pCO2 POC ABG pO2 ABG pO2 ABG HCO3 ABG O2 Saturation ABG Base Excess ABG Hemoglobin ABG Oxyhemoglobin ABG Sodium ABG Potassium ABG Glucose Oxyhemoglobin Sodium Potassium Chloride Carbon Dioxide BUN Creatinine Glucose POC Glucose 316 H Lactic Acid Calcium Phosphorus Magnesium Ferritin Lactate Dehydrogenase C-Reactive Protein NT-Pro-B Natriuret Pep Total Protein Albumin Triglycerides Arterial Blood Glucose Ur Specific [place] Coronavirus (PCR) 03/13/21 03/13/21 03/13/21 05:44 05:44 11:15 WBC RBC Hgb Hct MCV MCHC RDW Plt Count Lymph % (Auto) [place] % (Auto) Lymph # (Auto) [place] # (Auto) Seg Neutrophils % Seg Neuts % (Manual) Lymphocytes % (Manual) Monocytes % (Manual) Nucleated RBC % Seg Neutrophils # Seg Neutrophils # Man Lymphocytes # (Manual) Monocytes # (Manual) PT INR D-Dimer ABG pH 7.310 L POC ABG pCO2 POC ABG pO2 ABG pO2 52.3 L ABG HCO3 34.1 H ABG O2 Saturation 86.8 L ABG Base Excess 5.5 H ABG Hemoglobin 13.8 L ABG Oxyhemoglobin ABG Sodium ABG Potassium ABG Glucose Oxyhemoglobin 85.1 L Sodium Potassium Chloride Carbon Dioxide BUN Creatinine Glucose POC Glucose Lactic Acid Calcium Phosphorus Magnesium Ferritin 858.7 H Lactate Dehydrogenase 348 H C-Reactive Protein 2.80 H NT-Pro-B Natriuret Pep Total Protein Albumin Triglycerides Arterial Blood Glucose Ur Specific [place] Coronavirus (PCR) 03/13/21 03/13/21 03/13/21 11:21 15:47 19:23 WBC RBC Hgb Hct MCV MCHC RDW Plt Count Lymph % (Auto) [place] % (Auto) Lymph # (Auto) [place] # (Auto) Seg Neutrophils % Seg Neuts % (Manual) Lymphocytes % (Manual) Monocytes % (Manual) Nucleated RBC % Seg Neutrophils # Seg Neutrophils # Man Lymphocytes # (Manual) Monocytes # (Manual) PT INR D-Dimer ABG pH POC ABG pCO2 POC ABG pO2 ABG pO2 ABG HCO3 ABG O2 Saturation ABG Base Excess ABG Hemoglobin ABG Oxyhemoglobin ABG Sodium ABG Potassium ABG Glucose Oxyhemoglobin Sodium 136 L Potassium 5.9 H Chloride Carbon Dioxide BUN 50 H Creatinine Glucose 397 H POC Glucose 322 H 317 H Lactic Acid Calcium Phosphorus Magnesium Ferritin Lactate Dehydrogenase C-Reactive Protein NT-Pro-B Natriuret Pep Total Protein Albumin Triglycerides Arterial Blood Glucose Ur Specific [place] Coronavirus (PCR) 03/13/21 03/14/21 03/14/21 23:46 05:32 05:50 WBC 11.6 H RBC Hgb Hct MCV MCHC RDW Plt Count Lymph % (Auto) [place] % (Auto) Lymph # (Auto) [place] # (Auto) Seg Neutrophils % Seg Neuts % (Manual) Lymphocytes % (Manual) Monocytes % (Manual) Nucleated RBC % Seg Neutrophils # Seg Neutrophils # Man Lymphocytes # (Manual) Monocytes # (Manual) PT INR D-Dimer ABG pH POC ABG pCO2 POC ABG pO2 ABG pO2 ABG HCO3 ABG O2 Saturation ABG Base Excess ABG Hemoglobin ABG Oxyhemoglobin ABG Sodium ABG Potassium ABG Glucose Oxyhemoglobin Sodium Potassium Chloride Carbon Dioxide BUN Creatinine Glucose POC Glucose 332 H 316 H Lactic Acid Calcium Phosphorus Magnesium Ferritin Lactate Dehydrogenase C-Reactive Protein NT-Pro-B Natriuret Pep Total Protein Albumin Triglycerides Arterial Blood Glucose Ur Specific [place] Coronavirus (PCR) 03/14/21 03/14/21 03/14/21 05:50 11:33 16:53 WBC RBC Hgb Hct MCV MCHC RDW Plt Count Lymph % (Auto) [place] % (Auto) Lymph # (Auto) [place] # (Auto) Seg Neutrophils % Seg Neuts % (Manual) Lymphocytes % (Manual) Monocytes % (Manual) Nucleated RBC % Seg Neutrophils # Seg Neutrophils # Man Lymphocytes # (Manual) Monocytes # (Manual) PT INR D-Dimer ABG pH POC ABG pCO2 POC ABG pO2 ABG pO2 ABG HCO3 ABG O2 Saturation ABG Base Excess ABG Hemoglobin ABG Oxyhemoglobin ABG Sodium ABG Potassium ABG Glucose Oxyhemoglobin Sodium Potassium 5.9 H Chloride Carbon Dioxide 31 H BUN 48 H Creatinine Glucose 380 H POC Glucose 315 H 235 H Lactic Acid Calcium Phosphorus Magnesium 3.40 H Ferritin Lactate Dehydrogenase C-Reactive Protein NT-Pro-B Natriuret Pep Total Protein Albumin Triglycerides Arterial Blood Glucose Ur Specific [place] Coronavirus (PCR) 03/14/21 03/14/21 03/15/21 18:34 23:27 01:22 WBC RBC Hgb Hct 46.3 H MCV MCHC RDW Plt Count Lymph % (Auto) [place] % (Auto) Lymph # (Auto) [place] # (Auto) Seg Neutrophils % Seg Neuts % (Manual) Lymphocytes % (Manual) Monocytes % (Manual) Nucleated RBC % Seg Neutrophils # Seg Neutrophils # Man Lymphocytes # (Manual) Monocytes # (Manual) PT INR D-Dimer ABG pH POC ABG pCO2 POC ABG pO2 ABG pO2 ABG HCO3 ABG O2 Saturation ABG Base Excess ABG Hemoglobin ABG Oxyhemoglobin ABG Sodium ABG Potassium ABG Glucose Oxyhemoglobin Sodium 146 H Potassium Chloride Carbon Dioxide 34 H BUN 49 H Creatinine Glucose 285 H POC Glucose 203 H Lactic Acid Calcium Phosphorus Magnesium Ferritin Lactate Dehydrogenase C-Reactive Protein NT-Pro-B Natriuret Pep Total Protein Albumin Triglycerides Arterial Blood Glucose Ur Specific [place] Coronavirus (PCR) 03/15/21 03/15/21 03/15/21 04:00 06:06 06:06 WBC RBC Hgb Hct MCV MCHC RDW Plt Count Lymph % (Auto) [place] % (Auto) Lymph # (Auto) [place] # (Auto) Seg Neutrophils % Seg Neuts % (Manual) Lymphocytes % (Manual) Monocytes % (Manual) Nucleated RBC % Seg Neutrophils # Seg Neutrophils # Man Lymphocytes # (Manual) Monocytes # (Manual) PT INR D-Dimer 1781.79 H ABG pH POC ABG pCO2 POC ABG pO2 ABG pO2 ABG HCO3 ABG O2 Saturation ABG Base Excess ABG Hemoglobin ABG Oxyhemoglobin ABG Sodium ABG Potassium ABG Glucose Oxyhemoglobin Sodium 148 H Potassium 5.7 H D Chloride 108.0 H Carbon Dioxide 31 H BUN 46 H Creatinine Glucose 139 H POC Glucose Lactic Acid Calcium Phosphorus 4.80 H D Magnesium 3.00 H Ferritin 976.4 H Lactate Dehydrogenase 630 H C-Reactive Protein NT-Pro-B Natriuret Pep Total Protein Albumin Triglycerides Arterial Blood Glucose Ur Specific [place] Coronavirus (PCR) 03/15/21 03/15/21 03/15/21 11:56 14:05 17:09 WBC RBC Hgb Hct MCV MCHC RDW Plt Count Lymph % (Auto) [place] % (Auto) Lymph # (Auto) [place] # (Auto) Seg Neutrophils % Seg Neuts % (Manual) Lymphocytes % (Manual) Monocytes % (Manual) Nucleated RBC % Seg Neutrophils # Seg Neutrophils # Man Lymphocytes # (Manual) Monocytes # (Manual) PT INR D-Dimer ABG pH POC ABG pCO2 POC ABG pO2 ABG pO2 52.1 L ABG HCO3 36.6 H ABG O2 Saturation 87.6 L ABG Base Excess 9.5 H ABG Hemoglobin ABG Oxyhemoglobin ABG Sodium ABG Potassium ABG Glucose Oxyhemoglobin 85.7 L Sodium Potassium Chloride Carbon Dioxide BUN Creatinine Glucose POC Glucose 219 H 263 H Lactic Acid Calcium Phosphorus Magnesium Ferritin Lactate Dehydrogenase C-Reactive Protein NT-Pro-B Natriuret Pep Total Protein Albumin Triglycerides Arterial Blood Glucose Ur Specific [place] Coronavirus (PCR) 03/16/21 03/16/21 03/16/21 00:32 04:11 04:11 WBC 11.9 H RBC Hgb Hct MCV MCHC 30 L RDW Plt Count Lymph % (Auto) [place] % (Auto) Lymph # (Auto) [place] # (Auto) Seg Neutrophils % Seg Neuts % (Manual) Lymphocytes % (Manual) Monocytes % (Manual) Nucleated RBC % Seg Neutrophils # Seg Neutrophils # Man Lymphocytes # (Manual) Monocytes # (Manual) PT INR D-Dimer ABG pH POC ABG pCO2 POC ABG pO2 ABG pO2 ABG HCO3 ABG O2 Saturation ABG Base Excess ABG Hemoglobin ABG Oxyhemoglobin ABG Sodium ABG Potassium ABG Glucose Oxyhemoglobin Sodium 151 H Potassium Chloride Carbon Dioxide 35 H BUN 48 H Creatinine Glucose 152 H POC Glucose 165 H Lactic Acid Calcium Phosphorus Magnesium Ferritin Lactate Dehydrogenase C-Reactive Protein NT-Pro-B Natriuret Pep Total Protein Albumin Triglycerides Arterial Blood Glucose Ur Specific [place] Coronavirus (PCR) 03/16/21 03/16/21 03/16/21 04:11 05:26 11:35 WBC RBC Hgb Hct MCV MCHC RDW Plt Count Lymph % (Auto) [place] % (Auto) Lymph # (Auto) [place] # (Auto) Seg Neutrophils % Seg Neuts % (Manual) Lymphocytes % (Manual) Monocytes % (Manual) Nucleated RBC % Seg Neutrophils # Seg Neutrophils # Man Lymphocytes # (Manual) Monocytes # (Manual) PT INR D-Dimer ABG pH POC ABG pCO2 POC ABG pO2 ABG pO2 ABG HCO3 ABG O2 Saturation ABG Base Excess ABG Hemoglobin ABG Oxyhemoglobin ABG Sodium ABG Potassium ABG Glucose Oxyhemoglobin Sodium Potassium Chloride Carbon Dioxide BUN Creatinine Glucose POC Glucose 162 H 187 H Lactic Acid Calcium Phosphorus Magnesium Ferritin Lactate Dehydrogenase C-Reactive Protein NT-Pro-B Natriuret Pep Total Protein Albumin Triglycerides 267 H Arterial Blood Glucose Ur Specific [place] Coronavirus (PCR) 03/16/21 03/16/21 03/16/21 17:29 22:25 23:22 WBC RBC Hgb Hct MCV MCHC RDW Plt Count Lymph % (Auto) [place] % (Auto) Lymph # (Auto) [place] # (Auto) Seg Neutrophils % Seg Neuts % (Manual) Lymphocytes % (Manual) Monocytes % (Manual) Nucleated RBC % Seg Neutrophils # Seg Neutrophils # Man Lymphocytes # (Manual) Monocytes # (Manual) PT INR D-Dimer ABG pH POC ABG pCO2 POC ABG pO2 ABG pO2 ABG HCO3 ABG O2 Saturation ABG Base Excess ABG Hemoglobin ABG Oxyhemoglobin ABG Sodium ABG Potassium ABG Glucose Oxyhemoglobin Sodium Potassium Chloride Carbon Dioxide BUN Creatinine Glucose POC Glucose 237 H 165 H 189 H Lactic Acid Calcium Phosphorus Magnesium Ferritin Lactate Dehydrogenase C-Reactive Protein NT-Pro-B Natriuret Pep Total Protein Albumin Triglycerides Arterial Blood Glucose Ur Specific [place] Coronavirus (PCR) 03/17/21 03/17/21 03/17/21 04:40 04:40 04:40 WBC 14.1 H RBC Hgb Hct MCV MCHC RDW 15.3 H Plt Count Lymph % (Auto) 12.6 L [place] % (Auto) 11.3 H Lymph # (Auto) [place] # (Auto) 1.6 H Seg Neutrophils % 74.9 H Seg Neuts % (Manual) Lymphocytes % (Manual) Monocytes % (Manual) Nucleated RBC % Seg Neutrophils # 10.5 H Seg Neutrophils # Man Lymphocytes # (Manual) Monocytes # (Manual) PT INR D-Dimer 1359.12 H ABG pH POC ABG pCO2 POC ABG pO2 ABG pO2 ABG HCO3 ABG O2 Saturation ABG Base Excess ABG Hemoglobin ABG Oxyhemoglobin ABG Sodium ABG Potassium ABG Glucose Oxyhemoglobin Sodium 148 H Potassium Chloride 107.5 H Carbon Dioxide 33 H BUN 42 H Creatinine Glucose 183 H POC Glucose Lactic Acid Calcium Phosphorus Magnesium 2.70 H Ferritin Lactate Dehydrogenase C-Reactive Protein NT-Pro-B Natriuret Pep Total Protein Albumin Triglycerides Arterial Blood Glucose Ur Specific [place] Coronavirus (PCR) 03/17/21 03/17/21 03/17/21 05:53 11:05 11:51 WBC RBC Hgb Hct MCV MCHC RDW Plt Count Lymph % (Auto) [place] % (Auto) Lymph # (Auto) [place] # (Auto) Seg Neutrophils % Seg Neuts % (Manual) Lymphocytes % (Manual) Monocytes % (Manual) Nucleated RBC % Seg Neutrophils # Seg Neutrophils # Man Lymphocytes # (Manual) Monocytes # (Manual) PT INR D-Dimer ABG pH POC ABG pCO2 POC ABG pO2 ABG pO2 ABG HCO3 35.7 H ABG O2 Saturation ABG Base Excess 8.7 H ABG Hemoglobin ABG Oxyhemoglobin ABG Sodium ABG Potassium ABG Glucose Oxyhemoglobin 94.2 L Sodium Potassium Chloride Carbon Dioxide BUN Creatinine Glucose POC Glucose 176 H 197 H Lactic Acid Calcium Phosphorus Magnesium Ferritin Lactate Dehydrogenase C-Reactive Protein NT-Pro-B Natriuret Pep Total Protein Albumin Triglycerides Arterial Blood Glucose Ur Specific [place] Coronavirus (PCR) 03/17/21 03/17/21 03/17/21 16:54 21:10 23:33 WBC RBC Hgb Hct MCV MCHC RDW Plt Count Lymph % (Auto) [place] % (Auto) Lymph # (Auto) [place] # (Auto) Seg Neutrophils % Seg Neuts % (Manual) Lymphocytes % (Manual) Monocytes % (Manual) Nucleated RBC % Seg Neutrophils # Seg Neutrophils # Man Lymphocytes # (Manual) Monocytes # (Manual) PT INR D-Dimer ABG pH POC ABG pCO2 POC ABG pO2 ABG pO2 ABG HCO3 ABG O2 Saturation ABG Base Excess ABG Hemoglobin ABG Oxyhemoglobin ABG Sodium ABG Potassium ABG Glucose Oxyhemoglobin Sodium Potassium Chloride Carbon Dioxide BUN Creatinine Glucose POC Glucose 135 H 160 H 138 H Lactic Acid Calcium Phosphorus Magnesium Ferritin Lactate Dehydrogenase C-Reactive Protein NT-Pro-B Natriuret Pep Total Protein Albumin Triglycerides Arterial Blood Glucose Ur Specific [place] Coronavirus (PCR) 03/18/21 03/18/21 03/18/21 04:18 04:50 05:43 WBC RBC Hgb Hct MCV MCHC RDW Plt Count Lymph % (Auto) [place] % (Auto) Lymph # (Auto) [place] # (Auto) Seg Neutrophils % Seg Neuts % (Manual) Lymphocytes % (Manual) Monocytes % (Manual) Nucleated RBC % Seg Neutrophils # Seg Neutrophils # Man Lymphocytes # (Manual) Monocytes # (Manual) PT INR D-Dimer ABG pH POC ABG pCO2 POC ABG pO2 ABG pO2 59.8 L ABG HCO3 36.5 H ABG O2 Saturation 90.7 L ABG Base Excess 9.4 H ABG Hemoglobin 12.0 L ABG Oxyhemoglobin ABG Sodium ABG Potassium ABG Glucose Oxyhemoglobin 88.9 L Sodium Potassium Chloride 107.2 H Carbon Dioxide 34 H BUN 38 H Creatinine 0.7 L Glucose 136 H POC Glucose 128 H Lactic Acid Calcium Phosphorus Magnesium Ferritin Lactate Dehydrogenase C-Reactive Protein NT-Pro-B Natriuret Pep Total Protein Albumin Triglycerides Arterial Blood Glucose Ur Specific [place] Coronavirus (PCR) 03/18/21 03/18/21 03/18/21 11:20 17:35 23:35 WBC RBC Hgb Hct MCV MCHC RDW Plt Count Lymph % (Auto) [place] % (Auto) Lymph # (Auto) [place] # (Auto) Seg Neutrophils % Seg Neuts % (Manual) Lymphocytes % (Manual) Monocytes % (Manual) Nucleated RBC % Seg Neutrophils # Seg Neutrophils # Man Lymphocytes # (Manual) Monocytes # (Manual) PT INR D-Dimer ABG pH POC ABG pCO2 POC ABG pO2 ABG pO2 70.7 L ABG HCO3 33.6 H ABG O2 Saturation ABG Base Excess 8.0 H ABG Hemoglobin ABG Oxyhemoglobin ABG Sodium ABG Potassium ABG Glucose Oxyhemoglobin 93.7 L Sodium Potassium Chloride Carbon Dioxide BUN Creatinine Glucose POC Glucose 189 H 144 H Lactic Acid Calcium Phosphorus Magnesium Ferritin Lactate Dehydrogenase C-Reactive Protein NT-Pro-B Natriuret Pep Total Protein Albumin Triglycerides Arterial Blood Glucose Ur Specific [place] Coronavirus (PCR) 03/19/21 03/19/21 03/19/21 02:35 04:20 04:20 WBC 14.0 H RBC Hgb Hct MCV MCHC RDW Plt Count Lymph % (Auto) [place] % (Auto) Lymph # (Auto) [place] # (Auto) Seg Neutrophils % Seg Neuts % (Manual) Lymphocytes % (Manual) Monocytes % (Manual) Nucleated RBC % Seg Neutrophils # Seg Neutrophils # Man Lymphocytes # (Manual) Monocytes # (Manual) PT INR D-Dimer ABG pH POC ABG pCO2 POC ABG pO2 ABG pO2 ABG HCO3 32.0 H ABG O2 Saturation ABG Base Excess 5.2 H ABG Hemoglobin 13.6 L ABG Oxyhemoglobin ABG Sodium ABG Potassium ABG Glucose Oxyhemoglobin 94.6 L Sodium 146 H Potassium Chloride 109.3 H Carbon Dioxide BUN 36 H Creatinine Glucose 203 H POC Glucose Lactic Acid Calcium Phosphorus Magnesium Ferritin Lactate Dehydrogenase C-Reactive Protein NT-Pro-B Natriuret Pep Total Protein Albumin Triglycerides 254 H Arterial Blood Glucose Ur Specific [place] Coronavirus (PCR) 03/19/21 03/19/21 03/19/21 05:45 11:36 23:51 WBC RBC Hgb Hct MCV MCHC RDW Plt Count Lymph % (Auto) [place] % (Auto) Lymph # (Auto) [place] # (Auto) Seg Neutrophils % Seg Neuts % (Manual) Lymphocytes % (Manual) Monocytes % (Manual) Nucleated RBC % Seg Neutrophils # Seg Neutrophils # Man Lymphocytes # (Manual) Monocytes # (Manual) PT INR D-Dimer ABG pH POC ABG pCO2 POC ABG pO2 ABG pO2 ABG HCO3 ABG O2 Saturation ABG Base Excess ABG Hemoglobin ABG Oxyhemoglobin ABG Sodium ABG Potassium ABG Glucose Oxyhemoglobin Sodium Potassium Chloride Carbon Dioxide BUN Creatinine Glucose POC Glucose 164 H 172 H 140 H Lactic Acid Calcium Phosphorus Magnesium Ferritin Lactate Dehydrogenase C-Reactive Protein NT-Pro-B Natriuret Pep Total Protein Albumin Triglycerides Arterial Blood Glucose Ur Specific [place] Coronavirus (PCR) 03/20/21 03/20/21 03/20/21 03:29 04:45 04:45 WBC RBC Hgb Hct MCV 95 H MCHC RDW 15.7 H Plt Count Lymph % (Auto) [place] % (Auto) Lymph # (Auto) [place] # (Auto) Seg Neutrophils % Seg Neuts % (Manual) Lymphocytes % (Manual) Monocytes % (Manual) Nucleated RBC % Seg Neutrophils # Seg Neutrophils # Man Lymphocytes # (Manual) Monocytes # (Manual) PT INR D-Dimer ABG pH 7.349 L POC ABG pCO2 POC ABG pO2 ABG pO2 ABG HCO3 33.7 H ABG O2 Saturation ABG Base Excess 6.4 H ABG Hemoglobin 11.8 L ABG Oxyhemoglobin ABG Sodium ABG Potassium ABG Glucose Oxyhemoglobin 93.9 L Sodium 146 H Potassium 5.5 H Chloride 111.1 H Carbon Dioxide BUN 34 H Creatinine 0.7 L Glucose 145 H POC Glucose Lactic Acid Calcium Phosphorus Magnesium 2.50 H Ferritin Lactate Dehydrogenase C-Reactive Protein NT-Pro-B Natriuret Pep Total Protein Albumin Triglycerides Arterial Blood Glucose Ur Specific [place] Coronavirus (PCR) 03/20/21 03/20/21 03/20/21 05:41 09:08 11:54 WBC RBC Hgb Hct MCV MCHC RDW Plt Count Lymph % (Auto) [place] % (Auto) Lymph # (Auto) [place] # (Auto) Seg Neutrophils % Seg Neuts % (Manual) Lymphocytes % (Manual) Monocytes % (Manual) Nucleated RBC % Seg Neutrophils # Seg Neutrophils # Man Lymphocytes # (Manual) Monocytes # (Manual) PT INR D-Dimer ABG pH POC ABG pCO2 POC ABG pO2 ABG pO2 ABG HCO3 ABG O2 Saturation ABG Base Excess ABG Hemoglobin ABG Oxyhemoglobin ABG Sodium ABG Potassium ABG Glucose Oxyhemoglobin Sodium Potassium Chloride Carbon Dioxide BUN Creatinine Glucose POC Glucose 108 H 132 H 162 H Lactic Acid Calcium Phosphorus Magnesium Ferritin Lactate Dehydrogenase C-Reactive Protein NT-Pro-B Natriuret Pep Total Protein Albumin Triglycerides Arterial Blood Glucose Ur Specific [place] Coronavirus (PCR) 03/20/21 03/21/21 03/21/21 17:28 00:31 04:44 WBC RBC Hgb Hct MCV MCHC RDW Plt Count Lymph % (Auto) [place] % (Auto) Lymph # (Auto) [place] # (Auto) Seg Neutrophils % Seg Neuts % (Manual) Lymphocytes % (Manual) Monocytes % (Manual) Nucleated RBC % Seg Neutrophils # Seg Neutrophils # Man Lymphocytes # (Manual) Monocytes # (Manual) PT INR D-Dimer ABG pH POC ABG pCO2 POC ABG pO2 ABG pO2 ABG HCO3 ABG O2 Saturation ABG Base Excess ABG Hemoglobin ABG Oxyhemoglobin ABG Sodium ABG Potassium ABG Glucose Oxyhemoglobin Sodium Potassium Chloride 108.3 H Carbon Dioxide BUN 30 H Creatinine 0.7 L Glucose POC Glucose 160 H 122 H Lactic Acid Calcium Phosphorus Magnesium Ferritin Lactate Dehydrogenase C-Reactive Protein NT-Pro-B Natriuret Pep Total Protein Albumin Triglycerides Arterial Blood Glucose Ur Specific [place] Coronavirus (PCR) 03/21/21 03/21/21 03/21/21 09:18 10:09 13:20 WBC RBC Hgb Hct MCV MCHC RDW Plt Count Lymph % (Auto) [place] % (Auto) Lymph # (Auto) [place] # (Auto) Seg Neutrophils % Seg Neuts % (Manual) Lymphocytes % (Manual) Monocytes % (Manual) Nucleated RBC % Seg Neutrophils # Seg Neutrophils # Man Lymphocytes # (Manual) Monocytes # (Manual) PT INR D-Dimer ABG pH POC ABG pCO2 POC ABG pO2 ABG pO2 60.7 L ABG HCO3 30.6 H ABG O2 Saturation 93.6 L ABG Base Excess 5.3 H ABG Hemoglobin ABG Oxyhemoglobin ABG Sodium ABG Potassium ABG Glucose Oxyhemoglobin 91.7 L Sodium Potassium Chloride Carbon Dioxide BUN Creatinine Glucose POC Glucose 169 H 122 H Lactic Acid Calcium Phosphorus Magnesium Ferritin Lactate Dehydrogenase C-Reactive Protein NT-Pro-B Natriuret Pep Total Protein Albumin Triglycerides Arterial Blood Glucose Ur Specific [place] Coronavirus (PCR) 03/21/21 03/21/21 03/21/21 17:25 22:41 23:52 WBC RBC Hgb Hct MCV MCHC RDW Plt Count Lymph % (Auto) [place] % (Auto) Lymph # (Auto) [place] # (Auto) Seg Neutrophils % Seg Neuts % (Manual) Lymphocytes % (Manual) Monocytes % (Manual) Nucleated RBC % Seg Neutrophils # Seg Neutrophils # Man Lymphocytes # (Manual) Monocytes # (Manual) PT INR D-Dimer ABG pH POC ABG pCO2 POC ABG pO2 ABG pO2 ABG HCO3 ABG O2 Saturation ABG Base Excess ABG Hemoglobin ABG Oxyhemoglobin ABG Sodium ABG Potassium ABG Glucose Oxyhemoglobin Sodium Potassium Chloride Carbon Dioxide BUN Creatinine Glucose POC Glucose 121 H 139 H 140 H Lactic Acid Calcium Phosphorus Magnesium Ferritin Lactate Dehydrogenase C-Reactive Protein NT-Pro-B Natriuret Pep Total Protein Albumin Triglycerides Arterial Blood Glucose Ur Specific [place] Coronavirus (PCR) 03/22/21 03/22/21 03/22/21 05:58 07:26 07:26 WBC RBC Hgb Hct MCV MCHC 31 L RDW 16.1 H Plt Count Lymph % (Auto) [place] % (Auto) Lymph # (Auto) [place] # (Auto) Seg Neutrophils % Seg Neuts % (Manual) Lymphocytes % (Manual) Monocytes % (Manual) Nucleated RBC % Seg Neutrophils # Seg Neutrophils # Man Lymphocytes # (Manual) Monocytes # (Manual) PT INR D-Dimer ABG pH POC ABG pCO2 POC ABG pO2 ABG pO2 ABG HCO3 ABG O2 Saturation ABG Base Excess ABG Hemoglobin ABG Oxyhemoglobin ABG Sodium ABG Potassium ABG Glucose Oxyhemoglobin Sodium Potassium Chloride 108.5 H Carbon Dioxide BUN 44 H Creatinine Glucose 120 H POC Glucose 131 H Lactic Acid Calcium Phosphorus 5.80 H Magnesium 2.80 H Ferritin Lactate Dehydrogenase C-Reactive Protein NT-Pro-B Natriuret Pep Total Protein Albumin Triglycerides 305 H Arterial Blood Glucose Ur Specific [place] Coronavirus (PCR) 03/22/21 03/22/21 03/22/21 09:38 11:15 16:01 WBC RBC Hgb Hct MCV MCHC RDW Plt Count Lymph % (Auto) [place] % (Auto) Lymph # (Auto) [place] # (Auto) Seg Neutrophils % Seg Neuts % (Manual) Lymphocytes % (Manual) Monocytes % (Manual) Nucleated RBC % Seg Neutrophils # Seg Neutrophils # Man Lymphocytes # (Manual) Monocytes # (Manual) PT INR D-Dimer ABG pH POC ABG pCO2 POC ABG pO2 ABG pO2 70.0 L ABG HCO3 30.0 H ABG O2 Saturation 94.6 L ABG Base Excess 3.6 H ABG Hemoglobin 13.5 L ABG Oxyhemoglobin ABG Sodium ABG Potassium ABG Glucose Oxyhemoglobin 92.5 L Sodium Potassium Chloride Carbon Dioxide BUN Creatinine Glucose POC Glucose 186 H 148 H Lactic Acid Calcium Phosphorus Magnesium Ferritin Lactate Dehydrogenase C-Reactive Protein NT-Pro-B Natriuret Pep Total Protein Albumin Triglycerides Arterial Blood Glucose Ur Specific [place] Coronavirus (PCR) 03/22/21 03/22/21 03/23/21 21:13 23:48 07:04 WBC 11.7 H RBC Hgb Hct MCV 95 H MCHC RDW 16.1 H Plt Count Lymph % (Auto) [place] % (Auto) Lymph # (Auto) [place] # (Auto) Seg Neutrophils % Seg Neuts % (Manual) Lymphocytes % (Manual) Monocytes % (Manual) Nucleated RBC % Seg Neutrophils # Seg Neutrophils # Man Lymphocytes # (Manual) Monocytes # (Manual) PT INR D-Dimer ABG pH POC ABG pCO2 POC ABG pO2 ABG pO2 ABG HCO3 ABG O2 Saturation ABG Base Excess ABG Hemoglobin ABG Oxyhemoglobin ABG Sodium ABG Potassium ABG Glucose Oxyhemoglobin Sodium Potassium Chloride Carbon Dioxide BUN Creatinine Glucose POC Glucose 121 H 114 H Lactic Acid Calcium Phosphorus Magnesium Ferritin Lactate Dehydrogenase C-Reactive Protein NT-Pro-B Natriuret Pep Total Protein Albumin Triglycerides Arterial Blood Glucose Ur Specific [place] Coronavirus (PCR) 03/23/21 03/23/21 03/23/21 07:04 08:35 11:19 WBC RBC Hgb Hct MCV MCHC RDW Plt Count Lymph % (Auto) [place] % (Auto) Lymph # (Auto) [place] # (Auto) Seg Neutrophils % Seg Neuts % (Manual) Lymphocytes % (Manual) Monocytes % (Manual) Nucleated RBC % Seg Neutrophils # Seg Neutrophils # Man Lymphocytes # (Manual) Monocytes # (Manual) PT INR D-Dimer ABG pH 7.345 L POC ABG pCO2 POC ABG pO2 ABG pO2 167.9 H ABG HCO3 32.2 H ABG O2 Saturation ABG Base Excess 4.8 H ABG Hemoglobin 13.4 L ABG Oxyhemoglobin ABG Sodium ABG Potassium ABG Glucose Oxyhemoglobin Sodium 148 H Potassium Chloride 111.3 H Carbon Dioxide 31 H BUN 31 H Creatinine Glucose 131 H POC Glucose 165 H Lactic Acid Calcium Phosphorus Magnesium 2.50 H Ferritin Lactate Dehydrogenase C-Reactive Protein NT-Pro-B Natriuret Pep Total Protein Albumin Triglycerides Arterial Blood Glucose Ur Specific [place] Coronavirus (PCR) 03/23/21 03/23/21 03/24/21 16:48 20:52 00:07 WBC RBC Hgb Hct MCV MCHC RDW Plt Count Lymph % (Auto) [place] % (Auto) Lymph # (Auto) [place] # (Auto) Seg Neutrophils % Seg Neuts % (Manual) Lymphocytes % (Manual) Monocytes % (Manual) Nucleated RBC % Seg Neutrophils # Seg Neutrophils # Man Lymphocytes # (Manual) Monocytes # (Manual) PT INR D-Dimer ABG pH POC ABG pCO2 POC ABG pO2 ABG pO2 ABG HCO3 ABG O2 Saturation ABG Base Excess ABG Hemoglobin ABG Oxyhemoglobin ABG Sodium ABG Potassium ABG Glucose Oxyhemoglobin Sodium Potassium Chloride Carbon Dioxide BUN Creatinine Glucose POC Glucose 160 H 127 H 147 H Lactic Acid Calcium Phosphorus Magnesium Ferritin Lactate Dehydrogenase C-Reactive Protein NT-Pro-B Natriuret Pep Total Protein Albumin Triglycerides Arterial Blood Glucose Ur Specific [place] Coronavirus (PCR) 03/24/21 03/24/21 03/24/21 04:34 04:34 05:20 WBC 13.3 H RBC Hgb Hct MCV MCHC 31 L RDW 16.1 H Plt Count Lymph % (Auto) [place] % (Auto) Lymph # (Auto) [place] # (Auto) Seg Neutrophils % Seg Neuts % (Manual) Lymphocytes % (Manual) Monocytes % (Manual) Nucleated RBC % Seg Neutrophils # Seg Neutrophils # Man Lymphocytes # (Manual) Monocytes # (Manual) PT INR D-Dimer ABG pH POC ABG pCO2 POC ABG pO2 ABG pO2 ABG HCO3 ABG O2 Saturation ABG Base Excess ABG Hemoglobin ABG Oxyhemoglobin ABG Sodium ABG Potassium ABG Glucose Oxyhemoglobin Sodium Potassium 5.2 H Chloride Carbon Dioxide BUN 28 H Creatinine 0.7 L Glucose 152 H POC Glucose 141 H Lactic Acid Calcium Phosphorus Magnesium Ferritin Lactate Dehydrogenase C-Reactive Protein NT-Pro-B Natriuret Pep Total Protein Albumin Triglycerides Arterial Blood Glucose Ur Specific [place] Coronavirus (PCR) 03/24/21 03/24/21 03/24/21 09:40 11:38 16:45 WBC RBC Hgb Hct MCV MCHC RDW Plt Count Lymph % (Auto) [place] % (Auto) Lymph # (Auto) [place] # (Auto) Seg Neutrophils % Seg Neuts % (Manual) Lymphocytes % (Manual) Monocytes % (Manual) Nucleated RBC % Seg Neutrophils # Seg Neutrophils # Man Lymphocytes # (Manual) Monocytes # (Manual) PT INR D-Dimer ABG pH POC ABG pCO2 POC ABG pO2 ABG pO2 ABG HCO3 ABG O2 Saturation ABG Base Excess ABG Hemoglobin ABG Oxyhemoglobin ABG Sodium ABG Potassium ABG Glucose Oxyhemoglobin Sodium Potassium Chloride Carbon Dioxide BUN Creatinine Glucose POC Glucose 126 H 136 H 118 H Lactic Acid Calcium Phosphorus Magnesium Ferritin Lactate Dehydrogenase C-Reactive Protein NT-Pro-B Natriuret Pep Total Protein Albumin Triglycerides Arterial Blood Glucose Ur Specific [place] Coronavirus (PCR) 03/24/21 03/24/21 03/25/21 21:03 23:49 04:32 WBC RBC Hgb Hct MCV MCHC RDW 16.1 H Plt Count 121 L Lymph % (Auto) [place] % (Auto) Lymph # (Auto) [place] # (Auto) Seg Neutrophils % Seg Neuts % (Manual) Lymphocytes % (Manual) Monocytes % (Manual) Nucleated RBC % Seg Neutrophils # Seg Neutrophils # Man Lymphocytes # (Manual) Monocytes # (Manual) PT INR D-Dimer ABG pH POC ABG pCO2 POC ABG pO2 ABG pO2 ABG HCO3 ABG O2 Saturation ABG Base Excess ABG Hemoglobin ABG Oxyhemoglobin ABG Sodium ABG Potassium ABG Glucose Oxyhemoglobin Sodium Potassium Chloride Carbon Dioxide BUN Creatinine Glucose POC Glucose 116 H 125 H Lactic Acid Calcium Phosphorus Magnesium Ferritin Lactate Dehydrogenase C-Reactive Protein NT-Pro-B Natriuret Pep Total Protein Albumin Triglycerides Arterial Blood Glucose Ur Specific [place] Coronavirus (PCR) 03/25/21 03/25/21 03/25/21 04:32 05:21 09:29 WBC RBC Hgb Hct MCV MCHC RDW Plt Count Lymph % (Auto) [place] % (Auto) Lymph # (Auto) [place] # (Auto) Seg Neutrophils % Seg Neuts % (Manual) Lymphocytes % (Manual) Monocytes % (Manual) Nucleated RBC % Seg Neutrophils # Seg Neutrophils # Man Lymphocytes # (Manual) Monocytes # (Manual) PT INR D-Dimer ABG pH POC ABG pCO2 POC ABG pO2 ABG pO2 ABG HCO3 ABG O2 Saturation ABG Base Excess ABG Hemoglobin ABG Oxyhemoglobin ABG Sodium ABG Potassium ABG Glucose Oxyhemoglobin Sodium 135 L D Potassium Chloride Carbon Dioxide BUN 25 H Creatinine 0.7 L Glucose 168 H POC Glucose 149 H 115 H Lactic Acid Calcium Phosphorus Magnesium Ferritin Lactate Dehydrogenase C-Reactive Protein NT-Pro-B Natriuret Pep Total Protein Albumin Triglycerides Arterial Blood Glucose Ur Specific [place] Coronavirus (PCR) 03/25/21 03/25/21 03/25/21 12:26 12:35 23:53 WBC RBC Hgb Hct MCV MCHC RDW Plt Count Lymph % (Auto) [place] % (Auto) Lymph # (Auto) [place] # (Auto) Seg Neutrophils % Seg Neuts % (Manual) Lymphocytes % (Manual) Monocytes % (Manual) Nucleated RBC % Seg Neutrophils # Seg Neutrophils # Man Lymphocytes # (Manual) Monocytes # (Manual) PT INR D-Dimer ABG pH POC ABG pCO2 POC ABG pO2 ABG pO2 100.5 H ABG HCO3 33.6 H ABG O2 Saturation ABG Base Excess 6.4 H ABG Hemoglobin 12.0 L ABG Oxyhemoglobin ABG Sodium ABG Potassium ABG Glucose Oxyhemoglobin Sodium Potassium Chloride Carbon Dioxide BUN Creatinine Glucose POC Glucose 108 H 137 H Lactic Acid Calcium Phosphorus Magnesium Ferritin Lactate Dehydrogenase C-Reactive Protein NT-Pro-B Natriuret Pep Total Protein Albumin Triglycerides Arterial Blood Glucose Ur Specific [place] Coronavirus (PCR) 03/26/21 03/26/21 03/26/21 05:14 07:09 07:09 WBC RBC Hgb Hct MCV MCHC RDW 16.5 H Plt Count 139 L Lymph % (Auto) [place] % (Auto) Lymph # (Auto) [place] # (Auto) Seg Neutrophils % Seg Neuts % (Manual) Lymphocytes % (Manual) Monocytes % (Manual) Nucleated RBC % Seg Neutrophils # Seg Neutrophils # Man Lymphocytes # (Manual) Monocytes # (Manual) PT INR D-Dimer ABG pH POC ABG pCO2 POC ABG pO2 ABG pO2 ABG HCO3 ABG O2 Saturation ABG Base Excess ABG Hemoglobin ABG Oxyhemoglobin ABG Sodium ABG Potassium ABG Glucose Oxyhemoglobin Sodium Potassium Chloride Carbon Dioxide BUN 22 H Creatinine 0.7 L Glucose 108 H POC Glucose 116 H Lactic Acid Calcium Phosphorus Magnesium Ferritin Lactate Dehydrogenase C-Reactive Protein NT-Pro-B Natriuret Pep Total Protein Albumin Triglycerides Arterial Blood Glucose Ur Specific [place] Coronavirus (PCR) 03/26/21 03/26/21 03/26/21 09:51 11:15 16:59 WBC RBC Hgb Hct MCV MCHC RDW Plt Count Lymph % (Auto) [place] % (Auto) Lymph # (Auto) [place] # (Auto) Seg Neutrophils % Seg Neuts % (Manual) Lymphocytes % (Manual) Monocytes % (Manual) Nucleated RBC % Seg Neutrophils # Seg Neutrophils # Man Lymphocytes # (Manual) Monocytes # (Manual) PT INR D-Dimer ABG pH POC ABG pCO2 POC ABG pO2 ABG pO2 ABG HCO3 ABG O2 Saturation ABG Base Excess ABG Hemoglobin ABG Oxyhemoglobin ABG Sodium ABG Potassium ABG Glucose Oxyhemoglobin Sodium Potassium Chloride Carbon Dioxide BUN Creatinine Glucose POC Glucose 107 H 119 H 174 H Lactic Acid Calcium Phosphorus Magnesium Ferritin Lactate Dehydrogenase C-Reactive Protein NT-Pro-B Natriuret Pep Total Protein Albumin Triglycerides Arterial Blood Glucose Ur Specific [place] Coronavirus (PCR) 03/26/21 03/27/21 03/27/21 22:18 07:08 10:28 WBC RBC Hgb Hct MCV 95 H MCHC RDW 16.2 H Plt Count 134 L Lymph % (Auto) [place] % (Auto) Lymph # (Auto) [place] # (Auto) Seg Neutrophils % Seg Neuts % (Manual) Lymphocytes % (Manual) Monocytes % (Manual) Nucleated RBC % Seg Neutrophils # Seg Neutrophils # Man Lymphocytes # (Manual) Monocytes # (Manual) PT INR D-Dimer ABG pH POC ABG pCO2 POC ABG pO2 ABG pO2 ABG HCO3 ABG O2 Saturation ABG Base Excess ABG Hemoglobin ABG Oxyhemoglobin ABG Sodium ABG Potassium ABG Glucose Oxyhemoglobin Sodium Potassium Chloride Carbon Dioxide BUN Creatinine Glucose POC Glucose 107 H 52 L Lactic Acid Calcium Phosphorus Magnesium Ferritin Lactate Dehydrogenase C-Reactive Protein NT-Pro-B Natriuret Pep Total Protein Albumin Triglycerides Arterial Blood Glucose Ur Specific [place] Coronavirus (PCR) 03/27/21 03/27/21 03/27/21 10:28 11:45 17:39 WBC RBC Hgb Hct MCV MCHC RDW Plt Count Lymph % (Auto) [place] % (Auto) Lymph # (Auto) [place] # (Auto) Seg Neutrophils % Seg Neuts % (Manual) Lymphocytes % (Manual) Monocytes % (Manual) Nucleated RBC % Seg Neutrophils # Seg Neutrophils # Man Lymphocytes # (Manual) Monocytes # (Manual) PT INR D-Dimer ABG pH POC ABG pCO2 POC ABG pO2 ABG pO2 ABG HCO3 ABG O2 Saturation ABG Base Excess ABG Hemoglobin ABG Oxyhemoglobin ABG Sodium ABG Potassium ABG Glucose Oxyhemoglobin Sodium 136 L Potassium Chloride Carbon Dioxide BUN Creatinine 0.7 L Glucose 150 H POC Glucose 121 H 165 H Lactic Acid Calcium Phosphorus Magnesium Ferritin Lactate Dehydrogenase C-Reactive Protein NT-Pro-B Natriuret Pep Total Protein Albumin Triglycerides Arterial Blood Glucose Ur Specific [place] Coronavirus (PCR) 03/28/21 03/28/21 03/28/21 07:14 11:42 18:22 WBC RBC Hgb Hct MCV MCHC RDW 16.4 H Plt Count Lymph % (Auto) [place] % (Auto) Lymph # (Auto) [place] # (Auto) Seg Neutrophils % Seg Neuts % (Manual) Lymphocytes % (Manual) Monocytes % (Manual) Nucleated RBC % Seg Neutrophils # Seg Neutrophils # Man Lymphocytes # (Manual) Monocytes # (Manual) PT INR D-Dimer ABG pH POC ABG pCO2 POC ABG pO2 ABG pO2 ABG HCO3 ABG O2 Saturation ABG Base Excess ABG Hemoglobin ABG Oxyhemoglobin ABG Sodium ABG Potassium ABG Glucose Oxyhemoglobin Sodium Potassium Chloride Carbon Dioxide BUN Creatinine Glucose POC Glucose 145 H 169 H Lactic Acid Calcium Phosphorus Magnesium Ferritin Lactate Dehydrogenase C-Reactive Protein NT-Pro-B Natriuret Pep Total Protein Albumin Triglycerides Arterial Blood Glucose Ur Specific [place] Coronavirus (PCR) 03/28/21 03/29/21 03/29/21 23:39 04:50 04:50 WBC RBC Hgb 11.0 L Hct 34.9 L MCV MCHC RDW 15.9 H Plt Count Lymph % (Auto) [place] % (Auto) Lymph # (Auto) [place] # (Auto) Seg Neutrophils % Seg Neuts % (Manual) Lymphocytes % (Manual) Monocytes % (Manual) Nucleated RBC % Seg Neutrophils # Seg Neutrophils # Man Lymphocytes # (Manual) Monocytes # (Manual) PT INR D-Dimer ABG pH POC ABG pCO2 POC ABG pO2 ABG pO2 ABG HCO3 ABG O2 Saturation ABG Base Excess ABG Hemoglobin ABG Oxyhemoglobin ABG Sodium ABG Potassium ABG Glucose Oxyhemoglobin Sodium Potassium Chloride Carbon Dioxide 34 H BUN Creatinine 0.6 L Glucose 152 H POC Glucose 139 H Lactic Acid Calcium Phosphorus Magnesium Ferritin Lactate Dehydrogenase C-Reactive Protein NT-Pro-B Natriuret Pep Total Protein Albumin Triglycerides Arterial Blood Glucose Ur Specific [place] Coronavirus (PCR) 03/29/21 03/29/21 03/29/21 05:25 11:34 18:02 WBC RBC Hgb Hct MCV MCHC RDW Plt Count Lymph % (Auto) [place] % (Auto) Lymph # (Auto) [place] # (Auto) Seg Neutrophils % Seg Neuts % (Manual) Lymphocytes % (Manual) Monocytes % (Manual) Nucleated RBC % Seg Neutrophils # Seg Neutrophils # Man Lymphocytes # (Manual) Monocytes # (Manual) PT INR D-Dimer ABG pH POC ABG pCO2 POC ABG pO2 ABG pO2 ABG HCO3 ABG O2 Saturation ABG Base Excess ABG Hemoglobin ABG Oxyhemoglobin ABG Sodium ABG Potassium ABG Glucose Oxyhemoglobin Sodium Potassium Chloride Carbon Dioxide BUN Creatinine Glucose POC Glucose 127 H 169 H 173 H Lactic Acid Calcium Phosphorus Magnesium Ferritin Lactate Dehydrogenase C-Reactive Protein NT-Pro-B Natriuret Pep Total Protein Albumin Triglycerides Arterial Blood Glucose Ur Specific [place] Coronavirus (PCR) 03/29/21 03/30/21 03/30/21 21:42 00:01 05:36 WBC RBC Hgb Hct MCV MCHC RDW 16.7 H Plt Count Lymph % (Auto) [place] % (Auto) Lymph # (Auto) [place] # (Auto) Seg Neutrophils % Seg Neuts % (Manual) Lymphocytes % (Manual) Monocytes % (Manual) Nucleated RBC % Seg Neutrophils # Seg Neutrophils # Man Lymphocytes # (Manual) Monocytes # (Manual) PT INR D-Dimer ABG pH POC ABG pCO2 POC ABG pO2 ABG pO2 ABG HCO3 ABG O2 Saturation ABG Base Excess ABG Hemoglobin ABG Oxyhemoglobin ABG Sodium ABG Potassium ABG Glucose Oxyhemoglobin Sodium Potassium Chloride Carbon Dioxide BUN Creatinine Glucose POC Glucose 184 H 161 H Lactic Acid Calcium Phosphorus Magnesium Ferritin Lactate Dehydrogenase C-Reactive Protein NT-Pro-B Natriuret Pep Total Protein Albumin Triglycerides Arterial Blood Glucose Ur Specific [place] Coronavirus (PCR) 03/30/21 03/30/21 03/30/21 05:36 06:03 11:32 WBC RBC Hgb Hct MCV MCHC RDW Plt Count Lymph % (Auto) [place] % (Auto) Lymph # (Auto) [place] # (Auto) Seg Neutrophils % Seg Neuts % (Manual) Lymphocytes % (Manual) Monocytes % (Manual) Nucleated RBC % Seg Neutrophils # Seg Neutrophils # Man Lymphocytes # (Manual) Monocytes # (Manual) PT INR D-Dimer ABG pH POC ABG pCO2 POC ABG pO2 ABG pO2 ABG HCO3 ABG O2 Saturation ABG Base Excess ABG Hemoglobin ABG Oxyhemoglobin ABG Sodium ABG Potassium ABG Glucose Oxyhemoglobin Sodium Potassium Chloride Carbon Dioxide BUN Creatinine 0.5 L Glucose 127 H POC Glucose 130 H 183 H Lactic Acid Calcium Phosphorus Magnesium Ferritin Lactate Dehydrogenase C-Reactive Protein NT-Pro-B Natriuret Pep Total Protein Albumin Triglycerides Arterial Blood Glucose Ur Specific [place] Coronavirus (PCR) 03/30/21 03/30/21 03/30/21 15:00 16:23 21:07 WBC RBC Hgb Hct MCV MCHC RDW Plt Count Lymph % (Auto) [place] % (Auto) Lymph # (Auto) [place] # (Auto) Seg Neutrophils % Seg Neuts % (Manual) Lymphocytes % (Manual) Monocytes % (Manual) Nucleated RBC % Seg Neutrophils # Seg Neutrophils # Man Lymphocytes # (Manual) Monocytes # (Manual) PT INR D-Dimer ABG pH POC ABG pCO2 POC ABG pO2 ABG pO2 67.2 L ABG HCO3 34.9 H ABG O2 Saturation ABG Base Excess 9.1 H ABG Hemoglobin 11.6 L ABG Oxyhemoglobin ABG Sodium ABG Potassium ABG Glucose Oxyhemoglobin 93.0 L Sodium Potassium Chloride Carbon Dioxide BUN Creatinine Glucose POC Glucose 162 H 146 H Lactic Acid Calcium Phosphorus Magnesium Ferritin Lactate Dehydrogenase C-Reactive Protein NT-Pro-B Natriuret Pep Total Protein Albumin Triglycerides Arterial Blood Glucose Ur Specific [place] Coronavirus (PCR) 03/30/21 03/31/21 03/31/21 23:23 05:44 11:19 WBC RBC Hgb Hct MCV MCHC RDW Plt Count Lymph % (Auto) [place] % (Auto) Lymph # (Auto) [place] # (Auto) Seg Neutrophils % Seg Neuts % (Manual) Lymphocytes % (Manual) Monocytes % (Manual) Nucleated RBC % Seg Neutrophils # Seg Neutrophils # Man Lymphocytes # (Manual) Monocytes # (Manual) PT INR D-Dimer ABG pH POC ABG pCO2 POC ABG pO2 ABG pO2 ABG HCO3 ABG O2 Saturation ABG Base Excess ABG Hemoglobin ABG Oxyhemoglobin ABG Sodium ABG Potassium ABG Glucose Oxyhemoglobin Sodium Potassium Chloride Carbon Dioxide BUN Creatinine Glucose POC Glucose 138 H 180 H 178 H Lactic Acid Calcium Phosphorus Magnesium Ferritin Lactate Dehydrogenase C-Reactive Protein NT-Pro-B Natriuret Pep Total Protein Albumin Triglycerides Arterial Blood Glucose Ur Specific [place] Coronavirus (PCR) 03/31/21 03/31/21 03/31/21 12:50 13:30 16:06 WBC RBC Hgb 11.3 L Hct 35.1 L MCV MCHC RDW 16.5 H Plt Count Lymph % (Auto) 7.6 L [place] % (Auto) 9.5 H Lymph # (Auto) 0.6 L [place] # (Auto) Seg Neutrophils % 78.3 H Seg Neuts % (Manual) Lymphocytes % (Manual) Monocytes % (Manual) Nucleated RBC % Seg Neutrophils # Seg Neutrophils # Man Lymphocytes # (Manual) Monocytes # (Manual) PT INR D-Dimer ABG pH POC ABG pCO2 POC ABG pO2 ABG pO2 99.4 H ABG HCO3 34.9 H ABG O2 Saturation ABG Base Excess 8.4 H ABG Hemoglobin 11.8 L ABG Oxyhemoglobin ABG Sodium ABG Potassium ABG Glucose Oxyhemoglobin Sodium Potassium Chloride Carbon Dioxide BUN Creatinine Glucose POC Glucose 197 H Lactic Acid Calcium Phosphorus Magnesium Ferritin Lactate Dehydrogenase C-Reactive Protein NT-Pro-B Natriuret Pep Total Protein Albumin Triglycerides Arterial Blood Glucose Ur Specific [place] Coronavirus (PCR) 03/31/21 04/01/21 04/01/21 20:51 05:37 07:16 WBC RBC 3.39 L Hgb 10.5 L Hct 31.6 L MCV MCHC RDW 16.1 H Plt Count Lymph % (Auto) [place] % (Auto) Lymph # (Auto) [place] # (Auto) Seg Neutrophils % Seg Neuts % (Manual) Lymphocytes % (Manual) Monocytes % (Manual) Nucleated RBC % Seg Neutrophils # Seg Neutrophils # Man Lymphocytes # (Manual) Monocytes # (Manual) PT INR D-Dimer ABG pH POC ABG pCO2 POC ABG pO2 ABG pO2 ABG HCO3 ABG O2 Saturation ABG Base Excess ABG Hemoglobin ABG Oxyhemoglobin ABG Sodium ABG Potassium ABG Glucose Oxyhemoglobin Sodium Potassium Chloride Carbon Dioxide BUN Creatinine Glucose POC Glucose 140 H 128 H Lactic Acid Calcium Phosphorus Magnesium Ferritin Lactate Dehydrogenase C-Reactive Protein NT-Pro-B Natriuret Pep Total Protein Albumin Triglycerides Arterial Blood Glucose Ur Specific [place] Coronavirus (PCR) 04/01/21 04/01/21 04/01/21 07:16 11:52 16:56 WBC RBC Hgb Hct MCV MCHC RDW Plt Count Lymph % (Auto) [place] % (Auto) Lymph # (Auto) [place] # (Auto) Seg Neutrophils % Seg Neuts % (Manual) Lymphocytes % (Manual) Monocytes % (Manual) Nucleated RBC % Seg Neutrophils # Seg Neutrophils # Man Lymphocytes # (Manual) Monocytes # (Manual) PT INR D-Dimer ABG pH POC ABG pCO2 POC ABG pO2 ABG pO2 ABG HCO3 ABG O2 Saturation ABG Base Excess ABG Hemoglobin ABG Oxyhemoglobin ABG Sodium ABG Potassium ABG Glucose Oxyhemoglobin Sodium Potassium Chloride Carbon Dioxide BUN Creatinine 0.6 L Glucose 131 H POC Glucose 182 H 179 H Lactic Acid Calcium 8.3 L Phosphorus Magnesium Ferritin Lactate Dehydrogenase C-Reactive Protein NT-Pro-B Natriuret Pep Total Protein Albumin Triglycerides Arterial Blood Glucose Ur Specific [place] Coronavirus (PCR) 04/01/21 04/01/21 04/02/21 21:30 23:40 04:26 WBC RBC 3.62 L Hgb 10.8 L Hct 33.9 L MCV MCHC RDW 16.0 H Plt Count Lymph % (Auto) [place] % (Auto) Lymph # (Auto) [place] # (Auto) Seg Neutrophils % Seg Neuts % (Manual) Lymphocytes % (Manual) Monocytes % (Manual) Nucleated RBC % Seg Neutrophils # Seg Neutrophils # Man Lymphocytes # (Manual) Monocytes # (Manual) PT INR D-Dimer ABG pH POC ABG pCO2 POC ABG pO2 ABG pO2 ABG HCO3 ABG O2 Saturation ABG Base Excess ABG Hemoglobin ABG Oxyhemoglobin ABG Sodium ABG Potassium ABG Glucose Oxyhemoglobin Sodium Potassium Chloride Carbon Dioxide BUN Creatinine Glucose POC Glucose 131 H 129 H Lactic Acid Calcium Phosphorus Magnesium Ferritin Lactate Dehydrogenase C-Reactive Protein NT-Pro-B Natriuret Pep Total Protein Albumin Triglycerides Arterial Blood Glucose Ur Specific [place] Coronavirus (PCR) 04/02/21 04/02/21 04/02/21 04:26 05:54 11:35 WBC RBC Hgb Hct MCV MCHC RDW Plt Count Lymph % (Auto) [place] % (Auto) Lymph # (Auto) [place] # (Auto) Seg Neutrophils % Seg Neuts % (Manual) Lymphocytes % (Manual) Monocytes % (Manual) Nucleated RBC % Seg Neutrophils # Seg Neutrophils # Man Lymphocytes # (Manual) Monocytes # (Manual) PT INR D-Dimer ABG pH POC ABG pCO2 POC ABG pO2 ABG pO2 ABG HCO3 ABG O2 Saturation ABG Base Excess ABG Hemoglobin ABG Oxyhemoglobin ABG Sodium ABG Potassium ABG Glucose Oxyhemoglobin Sodium 136 L Potassium Chloride Carbon Dioxide BUN Creatinine 0.6 L Glucose 152 H POC Glucose 151 H 178 H Lactic Acid Calcium Phosphorus Magnesium Ferritin Lactate Dehydrogenase C-Reactive Protein NT-Pro-B Natriuret Pep Total Protein Albumin Triglycerides Arterial Blood Glucose Ur Specific [place] Coronavirus (PCR) 04/02/21 04/02/21 04/02/21 16:11 21:09 23:38 WBC RBC Hgb Hct MCV MCHC RDW Plt Count Lymph % (Auto) [place] % (Auto) Lymph # (Auto) [place] # (Auto) Seg Neutrophils % Seg Neuts % (Manual) Lymphocytes % (Manual) Monocytes % (Manual) Nucleated RBC % Seg Neutrophils # Seg Neutrophils # Man Lymphocytes # (Manual) Monocytes # (Manual) PT INR D-Dimer ABG pH POC ABG pCO2 POC ABG pO2 ABG pO2 ABG HCO3 ABG O2 Saturation ABG Base Excess ABG Hemoglobin ABG Oxyhemoglobin ABG Sodium ABG Potassium ABG Glucose Oxyhemoglobin Sodium Potassium Chloride Carbon Dioxide BUN Creatinine Glucose POC Glucose 186 H 145 H 152 H Lactic Acid Calcium Phosphorus Magnesium Ferritin Lactate Dehydrogenase C-Reactive Protein NT-Pro-B Natriuret Pep Total Protein Albumin Triglycerides Arterial Blood Glucose Ur Specific [place] Coronavirus (PCR) 04/03/21 04/03/21 04/03/21 04:14 04:14 05:27 WBC RBC 3.62 L Hgb 11.0 L Hct 34.0 L MCV MCHC RDW 16.3 H Plt Count Lymph % (Auto) [place] % (Auto) Lymph # (Auto) [place] # (Auto) Seg Neutrophils % Seg Neuts % (Manual) Lymphocytes % (Manual) Monocytes % (Manual) Nucleated RBC % Seg Neutrophils # Seg Neutrophils # Man Lymphocytes # (Manual) Monocytes # (Manual) PT INR D-Dimer ABG pH POC ABG pCO2 POC ABG pO2 ABG pO2 ABG HCO3 ABG O2 Saturation ABG Base Excess ABG Hemoglobin ABG Oxyhemoglobin ABG Sodium ABG Potassium ABG Glucose Oxyhemoglobin Sodium Potassium Chloride Carbon Dioxide 31 H BUN Creatinine 0.6 L Glucose 155 H POC Glucose 165 H Lactic Acid Calcium Phosphorus Magnesium Ferritin Lactate Dehydrogenase C-Reactive Protein NT-Pro-B Natriuret Pep Total Protein Albumin Triglycerides Arterial Blood Glucose Ur Specific [place] Coronavirus (PCR) 04/03/21 04/03/21 04/03/21 11:02 16:19 19:45 WBC RBC Hgb Hct MCV MCHC RDW Plt Count Lymph % (Auto) [place] % (Auto) Lymph # (Auto) [place] # (Auto) Seg Neutrophils % Seg Neuts % (Manual) Lymphocytes % (Manual) Monocytes % (Manual) Nucleated RBC % Seg Neutrophils # Seg Neutrophils # Man Lymphocytes # (Manual) Monocytes # (Manual) PT INR D-Dimer ABG pH POC ABG pCO2 POC ABG pO2 ABG pO2 ABG HCO3 ABG O2 Saturation ABG Base Excess ABG Hemoglobin ABG Oxyhemoglobin ABG Sodium ABG Potassium ABG Glucose Oxyhemoglobin Sodium Potassium Chloride Carbon Dioxide BUN Creatinine Glucose POC Glucose 161 H 180 H 136 H Lactic Acid Calcium Phosphorus Magnesium Ferritin Lactate Dehydrogenase C-Reactive Protein NT-Pro-B Natriuret Pep Total Protein Albumin Triglycerides Arterial Blood Glucose Ur Specific [place] Coronavirus (PCR) 04/04/21 04/04/21 04/04/21 00:21 04:33 04:33 WBC 13.1 H RBC 3.49 L Hgb 10.3 L Hct 32.7 L MCV MCHC RDW 16.1 H Plt Count Lymph % (Auto) [place] % (Auto) Lymph # (Auto) [place] # (Auto) Seg Neutrophils % Seg Neuts % (Manual) Lymphocytes % (Manual) Monocytes % (Manual) Nucleated RBC % Seg Neutrophils # Seg Neutrophils # Man Lymphocytes # (Manual) Monocytes # (Manual) PT INR D-Dimer ABG pH POC ABG pCO2 POC ABG pO2 ABG pO2 ABG HCO3 ABG O2 Saturation ABG Base Excess ABG Hemoglobin ABG Oxyhemoglobin ABG Sodium ABG Potassium ABG Glucose Oxyhemoglobin Sodium Potassium Chloride Carbon Dioxide 31 H BUN Creatinine 0.4 L Glucose 153 H POC Glucose 140 H Lactic Acid Calcium Phosphorus Magnesium Ferritin Lactate Dehydrogenase C-Reactive Protein NT-Pro-B Natriuret Pep Total Protein Albumin Triglycerides Arterial Blood Glucose Ur Specific [place] Coronavirus (PCR) 04/04/21 04/04/21 04/04/21 05:16 11:39 17:22 WBC RBC Hgb Hct MCV MCHC RDW Plt Count Lymph % (Auto) [place] % (Auto) Lymph # (Auto) [place] # (Auto) Seg Neutrophils % Seg Neuts % (Manual) Lymphocytes % (Manual) Monocytes % (Manual) Nucleated RBC % Seg Neutrophils # Seg Neutrophils # Man Lymphocytes # (Manual) Monocytes # (Manual) PT INR D-Dimer ABG pH POC ABG pCO2 POC ABG pO2 ABG pO2 ABG HCO3 ABG O2 Saturation ABG Base Excess ABG Hemoglobin ABG Oxyhemoglobin ABG Sodium ABG Potassium ABG Glucose Oxyhemoglobin Sodium Potassium Chloride Carbon Dioxide BUN Creatinine Glucose POC Glucose 152 H 154 H 198 H Lactic Acid Calcium Phosphorus Magnesium Ferritin Lactate Dehydrogenase C-Reactive Protein NT-Pro-B Natriuret Pep Total Protein Albumin Triglycerides Arterial Blood Glucose Ur Specific [place] Coronavirus (PCR) 04/04/21 04/04/21 04/05/21 20:14 23:16 04:15 WBC RBC 3.21 L Hgb 10.0 L Hct 30.3 L MCV MCHC RDW 16.4 H Plt Count Lymph % (Auto) [place] % (Auto) Lymph # (Auto) [place] # (Auto) Seg Neutrophils % Seg Neuts % (Manual) Lymphocytes % (Manual) Monocytes % (Manual) Nucleated RBC % Seg Neutrophils # Seg Neutrophils # Man Lymphocytes # (Manual) Monocytes # (Manual) PT INR D-Dimer ABG pH POC ABG pCO2 POC ABG pO2 ABG pO2 ABG HCO3 ABG O2 Saturation ABG Base Excess ABG Hemoglobin ABG Oxyhemoglobin ABG Sodium ABG Potassium ABG Glucose Oxyhemoglobin Sodium Potassium Chloride Carbon Dioxide BUN Creatinine Glucose POC Glucose 161 H 139 H Lactic Acid Calcium Phosphorus Magnesium Ferritin Lactate Dehydrogenase C-Reactive Protein NT-Pro-B Natriuret Pep Total Protein Albumin Triglycerides Arterial Blood Glucose Ur Specific [place] Coronavirus (PCR) 04/05/21 04/05/21 04/05/21 04:15 05:34 12:09 WBC RBC Hgb Hct MCV MCHC RDW Plt Count Lymph % (Auto) [place] % (Auto) Lymph # (Auto) [place] # (Auto) Seg Neutrophils % Seg Neuts % (Manual) Lymphocytes % (Manual) Monocytes % (Manual) Nucleated RBC % Seg Neutrophils # Seg Neutrophils # Man Lymphocytes # (Manual) Monocytes # (Manual) PT INR D-Dimer ABG pH POC ABG pCO2 POC ABG pO2 ABG pO2 ABG HCO3 ABG O2 Saturation ABG Base Excess ABG Hemoglobin ABG Oxyhemoglobin ABG Sodium ABG Potassium ABG Glucose Oxyhemoglobin Sodium Potassium Chloride 97.6 L Carbon Dioxide 32 H BUN Creatinine 0.5 L Glucose 147 H POC Glucose 145 H 173 H Lactic Acid Calcium Phosphorus Magnesium Ferritin Lactate Dehydrogenase C-Reactive Protein NT-Pro-B Natriuret Pep Total Protein Albumin Triglycerides Arterial Blood Glucose Ur Specific [place] Coronavirus (PCR) 04/05/21 04/05/21 04/05/21 17:35 21:07 23:15 WBC RBC Hgb Hct MCV MCHC RDW Plt Count Lymph % (Auto) [place] % (Auto) Lymph # (Auto) [place] # (Auto) Seg Neutrophils % Seg Neuts % (Manual) Lymphocytes % (Manual) Monocytes % (Manual) Nucleated RBC % Seg Neutrophils # Seg Neutrophils # Man Lymphocytes # (Manual) Monocytes # (Manual) PT INR D-Dimer ABG pH POC ABG pCO2 POC ABG pO2 ABG pO2 ABG HCO3 ABG O2 Saturation ABG Base Excess ABG Hemoglobin ABG Oxyhemoglobin ABG Sodium ABG Potassium ABG Glucose Oxyhemoglobin Sodium Potassium Chloride Carbon Dioxide BUN Creatinine Glucose POC Glucose 143 H 157 H 171 H Lactic Acid Calcium Phosphorus Magnesium Ferritin Lactate Dehydrogenase C-Reactive Protein NT-Pro-B Natriuret Pep Total Protein Albumin Triglycerides Arterial Blood Glucose Ur Specific [place] Coronavirus (PCR) 04/06/21 04/06/21 04:49 05:14 WBC RBC Hgb Hct MCV MCHC RDW Plt Count Lymph % (Auto) [place] % (Auto) Lymph # (Auto) [place] # (Auto) Seg Neutrophils % Seg Neuts % (Manual) Lymphocytes % (Manual) Monocytes % (Manual) Nucleated RBC % Seg Neutrophils # Seg Neutrophils # Man Lymphocytes # (Manual) Monocytes # (Manual) PT INR D-Dimer ABG pH POC ABG pCO2 57.4 H POC ABG pO2 55.1 L ABG pO2 ABG HCO3 ABG O2 Saturation ABG Base Excess ABG Hemoglobin 11.5 L ABG Oxyhemoglobin 87.5 L ABG Sodium ABG Potassium ABG Glucose Oxyhemoglobin Sodium Potassium Chloride Carbon Dioxide BUN Creatinine Glucose POC Glucose 145 H Lactic Acid Calcium Phosphorus Magnesium Ferritin Lactate Dehydrogenase C-Reactive Protein NT-Pro-B Natriuret Pep Total Protein Albumin Triglycerides Arterial Blood Glucose Ur Specific [place] Coronavirus (PCR) Chest x-ray: image reviewed (increased infiltrates) Allied health notes reviewed: nursing
[2021-04-06 12:37] LABS: ABG Base Excess 10.6 mmol/L (-2.0-3.0); ABG HCO3 38.9 mmol/L (20.0-26.0); ABG Methemoglobin 0.7 % (0.0-1.5); ABG Oxygen Saturation 97.4 % (95.0-99.0); ABG PCO2 73.5 mm Hg; ABG PH 7.341 pH Units (7.350-7.450); ABG PO2 108.9 mm Hg (80.0-90.0)
--- NOTE | 2021-04-06 12:53 | Progress Note ---
Assessment and Plan Cultures: SARS CoV2 PCR: positive 03/08/2021 blood culture: no growth 03/10/2021 sputum culture: Usual respiratory marlyn 03/16/2021 blood culture: In process 03/18/2021 sputum culture: Stenotrophomonas 03/31/2021 Blood culture: no growth 03/31/2021 tracheal aspirate: usual resp marlyn A/P: 61-year-old male with diabetes, hypertension admitted to the hospital with complaints of shortness of breath and feeling weak for the last 1 week: #Sepsis secondary to bilateral pneumonia: secondary to COVID-19. Completed rem desivir, s/p Actemra, steroids. Completed abx for bacterial pneumonia, Stenotrophomonas. #Acute hypoxic respiratory failure: s/p trach and PEG. #DM #HTN Recs: -WBC normal, afebrile, monitor off abx Sangita Nicole MD, FACP, [facility] ([facility] O: [phone] F: [phone] Subjective Date of service: 04/06/21 Principal diagnosis: COVID-19 infection; DM II; Bilateral pneumonia; Obesity; HTN Interval history: No fever. Remains on the vent via trach. Objective - Exam Narrative Exam: Physical Exam Constitutional: on the vent Head, Ears, Nose: Normocephalic, atraumatic. External ears, nose normal Eyes: Conjunctivae/corneas clear. No icterus. Neck: trach + Cardiovascular: S1, S2 + Respiratory: AE fair GI: Soft, bowel sounds +, PEG + Musculoskeletal: edema + Skin: No rash or abscess Hem/Lymphatic: No palpable cervical or supraclavicular nodes. No lymphangitis Psych: no agitation Neurological: on the vent, exam limited - Constitutional Vitals: Vital Signs Temp Pulse Resp BP Pulse Ox 98.8 F 106 H 24 127/76 97 04/06/21 08:00 04/06/21 12:30 04/06/21 12:30 04/06/21 12:30 04/06/21 12:30 Temperature -Last 24 Hours Temperature 98.8 F Temperature 99.9 F Temperature 98.7 F Temperature 99.1 F Temperature 99 F - Labs CBC & Chem 7: 04/05/21 04:15 04/05/21 04:15 Labs: Abnormal lab results 04/05/21 04/05/21 04/05/21 Range/Units 17:35 21:07 23:15 ABG pH (7.350-7.450) pH Units POC ABG pCO2 (32.0-48.0) mmHg POC ABG pO2 (83-108) mmHg ABG pO2 (80.0-90.0) mm Hg ABG HCO3 (20.0-26.0) mmol/L ABG Base Excess (-2.0-3.0) mmol/L ABG Hemoglobin (12.0-17.5) ABG Oxyhemoglobin (94-98) POC Glucose 143 H 157 H 171 H (70-105) mg/dL 04/06/21 04/06/21 04/06/21 Range/Units 04:49 05:14 11:42 ABG pH (7.350-7.450) pH Units POC ABG pCO2 57.4 H (32.0-48.0) mmHg POC ABG pO2 55.1 L (83-108) mmHg ABG pO2 (80.0-90.0) mm Hg ABG HCO3 (20.0-26.0) mmol/L ABG Base Excess (-2.0-3.0) mmol/L ABG Hemoglobin 11.5 L (12.0-17.5) ABG Oxyhemoglobin 87.5 L (94-98) POC Glucose 145 H 171 H (70-105) mg/dL 04/06/21 Range/Units 11:50 ABG pH 7.341 L (7.350-7.450) pH Units POC ABG pCO2 (32.0-48.0) mmHg POC ABG pO2 (83-108) mmHg ABG pO2 108.9 H (80.0-90.0) mm Hg ABG HCO3 38.9 H (20.0-26.0) mmol/L ABG Base Excess 10.6 H (-2.0-3.0) mmol/L ABG Hemoglobin 11.5 L (12.0-17.5) ABG Oxyhemoglobin (94-98) POC Glucose (70-105) mg/dL
--- NOTE | 2021-04-06 15:25 | Vascular Lab Report ---
DUPLEX DOPPLER UPPER EXTREMITY VENOUS, BILATERAL INDICATION / CLINICAL INFORMATION: Upper extremity pain and swelling. TECHNIQUE: Duplex doppler imaging was performed through the veins of the right and left upper extremi ty using venous compression and other maneuvers. COMPARISON: None available. FINDINGS: RIGHT INTERNAL JUGULAR VEIN: Negative. RIGHT SUBCLAVIAN VEIN: Negative. RIGHT AXILLARY VEIN: Negative. RIGHT BRACHIAL VEIN: Acute thrombus. RIGHT FOREARM VEINS: Negative. RIGHT BASILIC VEIN (SUPERFICIAL): Negative. LEFT INTERNAL JUGULAR VEIN: Negative. LEFT SUBCLAVIAN VEIN: Negative. LEFT AXILLARY VEIN: Negative. LEFT BRACHIAL VEIN: Negative. LEFT FOREARM VEINS: Negative. LEFT BASILIC VEIN (SUPERFICIAL): Negative. ADDITIONAL FINDINGS: Subcutaneous edema present within the bilateral upper extremities.. IMPRESSION: Acute DVT within the right brachial vein, as above Signer Name: Macho Bobo MD Signed: 04/06/2021 3:21 PM Workstation Name: [id number]
[2021-04-06 16:11] LABS: Hematocrit 32.5 % (35.5-45.6); Hemoglobin 10.4 gm/dl (11.8-15.2); INR 0.94 (0.87-1.13)
[2021-04-06 16:12] LABS: Partial Thromboplastin Time 37.1 Sec. (24.2-36.6)
--- NOTE | 2021-04-06 16:59 | Progress Note ---
Assessment and Plan Assessment and plan: This is a 61-year-old man with HTN and DM admitted with COVID-19 pneumonia, acute hypoxic respiratory failure, sepsis Neuro: Acute encephalopathy -Sedated with fentanyl drip -RASS goal 0 to -1 -Avoid delirium -On Seroquel and Librium -Second dose increased to 250 twice daily -Started on scheduled Lortab for 7 days -Reorientation as needed -Maintain sleep-wake cycle -As needed analgesia -CT head shows no acute intracranial abnormality -Neurology consulted, appreciate recommendations Cardiac: h/o Hypertension -Cardiology consulted, appreciate recommendations -Blood pressure monitoring per protocol -Echocardiogram shows a mildly dilated ascending aorta, normal LV systolic function, mild concentric LVH, LVEF 60 to 65% -Antihypertensive regimen: Hydralazine, metoprolol, amlodipine Respiratory: Acute hypoxic respiratory failure -[facility] consulted, appreciate recommendations -Intubated on 03/10 with 7.50 ETT at 24 at the lips, s/p trach on 03/29 -A.m. vent settings: Assist-control rate 12, tidal volume 450, PEEP 8, FiO2 100% -See RT notes for titration -A.m. ABG noted -Albuterol as needed, Brovana Pulmicort -VAP bundle -SPO2 monitoring GI: Obesity, external hemorrhoids -24 hours +627 mL -PPI -NTR consulted for tube feedings -BR: Senokot, miralax -BM 04/05 -As needed Preparation H : Urinary retention -Nephrology consulted, appreciate recommendations -Strict intake and output -Renally dose medications -Avoid nephrotoxic medications -Doxazosin increased to twice daily ID: Severe sepsis (POA), COVID-19 pneumonia, stenotrophomonas maltophilia and tracheal aspirate -Infectious disease consulted, appreciate recommendations -Antibiotic therapy with cefepime -Due to low procalcitonin and cultures remaining negative cefepime was discontinued -S/p remdesivir for 5 days -S/p Actemra 03/10/2021 -f/u blood culture -Monitor WBC and temperature curve -steroids tapered off -re culture for fever > 101 Heme: Acute right upper extremity DVT , superficial thrombus in left gastrocnemius vein -Bilateral lower extremity ultrasound negative for DVT, superficial thrombus in left gastrocnemius vein -repeat BLE Doppler US show superficial thrombus -Repeat bilateral upper extremity ultrasound shows DVT in right upper extremity -Started on heparin drip -Titration for protocol -CTA chest shows no gross pulm embolism -Trend CBC -SCDs to BLE while in bed -Transfuse hemoglobin less than 7 -Monitor for signs of bleeding Endo: h/o DM -Avoid hypoglycemia -SSI -Accu-Cheks q. 6 -Long-acting insulin, titrate as needed The high probability of a clinically significant, sudden or life threatening deterioration of the [multi] system(s) required my full and direct attention, intervention and personal management. The aggregate critical care time was [60] minutes. This time is in addition to time spent performing reported procedures but includes the following: [x] Data Review and interpretation [x] Patient assessment and monitoring of vital signs [x] Documentation [x] Medication orders and management Disposition Plan: icu Total Time Spent with Patient (Minutes): 60 History Interval history: This is a 61-year-old male with HTN and DM who presented to the emergency department on 03/09 with shortness of breath and hypoxia via EMS. Patient had apparently been feeling ill for proxy 1 week prior to mentation. Upon EMS arrival patient SPO2 was in the low 70s and improved to upper 80slow 90s on nonrebreather and he was transported to [facility] in the emergency department patient was noted to be hypoxic and placed on a BiPAP with improvement to mentation and hypoxia. CXR showed bilateral patchy infiltrates. Lab work showed leukocytosis, elevated D-dimer, hyponatremia, hypochloremia and elevated COVID-19 markers with elevated BNP. CTA chest showed no pulmonary embolism. Patient was admitted to the hospitalist service as a COVID-19 PUI and started on antibiotics and Decadron with consult to infectious disease. 03/09: The patient was seen and evaluated today, and he was found to be hemodynamically stable. The patient is currently on BiPAP for possible COVID-19 pneumonia. He was started on Lovenox 1mg/kg for DVT ppx in the setting of d- dimer > 10,000. Infectious Disease was consulted. The patient is pending a TTE. 03/10: No acute events overnight, patient was intubated in the afternoon transferred to ICU 03/11: Patient started on Lantus, free water flushes increased, propofol drip resumed and oral antihypertensive added. 03/12: lantus increased, k at 5, will monitor. I updated his family and his stated that he is not vaccinated. He does have HTN and she will call the RN to update home medications. She did say he takes bystolic and amlopine. She inquired about ventilator and lab work. She had no further questions. 03/13: KVNG overnight. Patient remains hyperglycemic, basal insulin adjusted and increased to Q12hrs. Patient is overall net positive since admit X1 dose of IV lasix, repeat BMP this afternoon. 03/14: Failed SAT this am due to increase agitation, tachycardia and hypertension. Remains on propofol and fentanyl gtt. Hyperkalemia treated with PO kayaxalate. Patient responded to IV lasix yesterday additional dose again today for a net negative balance. Repeat BMP this afternoon. Insulin adjusted for hyperglycemia. 03/15: Remains encephalopathic, not following commansd. Orders placed for CT head/Brain and Neuro consulted. Rectal bleeding subsided, most likely due to hemorrhoids. H&H is stable will continue to monitor. Kayaxexalate for high K, repeat labs 4 to 6hrs post treatment. 03/16: Still agiated this am, CT head with no acute Abn. CXR and ABG noted- evolving pna and worsening hypoxia, now with low grade fevers. Sputum culture ordered, IV Abx added, ID on cosult. 03/17: This am ABG noted, hypoxia improved. Continue to wean FiO2 as tolerated. Still with low grade fevers, on IV Abx per ID. Still with periods of confusion despite sedation, seroquel increased. F/u CXR in the am 03/18: still very agitated especially when off sedation, with hypertension and tachycardia. Continue sedation for RASS -2, PRN antihypertensive for SPB greater than 160. This febrile this am, continue current IV abx per ID 03/19: Patient afebrile overnight, continue IV Abx per ID. ABG also improved this am, continue to wean FIO2 as tolerated. PRN antihypertensive for hypertension. 03/20: Hyperkalemia treated with Kayexalate, Good discontinued, vancomycin and cefepime stopped started Bactrim by ID. Steroid taper started. 03/21: BB started for hypertension, Seroquel increased for agitation and Librium started no acute events reported overnight. [facility] made vent changes 03/22: Adjustment to anxiolytics, respiratory rate on ventilator per [facility]. Patient noted to have bleeding hemorrhoids with clot, requested RN to remove bowel management system and will order Preparation H. 03/23: Given no confirmed DVT or PE (only superficial thrombus noted on Dopplers) therapeutic Lovenox changed to prophylactic Lovenox. Started on doxazosin to help with retention. Consulted surgery for tracheostomy and propofol discontinued. 03/24: Surgery consult completed, patient changed to prophylaxis anticoagulation, started on doxazosin yesterday with plans to remove Good catheter in 48 hours. Patient with slight hypokalemia today and given Kayexalate. No acute events reported overnight. 03/25: No acute events reported overnight. Patient remains on fentanyl drip and on CPAP trial this morning. 03/26: no acute events reported overnight. placed on CPAP this AM, remains on fent/librium. scheduled for trach/peg this week. 03/27: Hypoglycemic this am, will decreased lantus to Qhs. Plan for possible Trac h and Peg by Gen Surg this am. Case management to arrange possible LTAC placement 03/28: KVNG overnight. Tolerating PST this am. Plan for trach and PEG tomorrow by Gen. Surgery, NPO after midnight. 03/29: No significant changes overnight. Plan for trach and Peg today. Case management to arrange possible LTAC placement 03/30. S/p Trach and PEG, no complications noted. High residual yesterday despite NPO status, reglan added X2 days. Per RN no residual this am, patient is tolerating TF. Continue to advance TF as tolerated. Norvasc added for hypertension. Pitting edema also appreciated, some diuretic might be beneficial, will d/w CCM. Continue daily PST as tolerated. 03/31: Patient remains on the vent still on fentanyl gtt with periods of agitation. PRN analgesia added, plan to start weaning off fentanyl gtt. Febrile this am, completed IV abx course. Will panculture for now, ID is also following. 04/01: Still febrile overnight, cultures result pending, continue IV ABx per ID. Failed PST this am. Continue daily PST and vent wean per CCM. Case management to arrange possible placement. 04/02: KVNG overnight. Fevers improved overnight, continue to follow cultures data, IV ABx per ID. Continue daily PST and wean vent as per CCM. 04/03: Given low procalcitonin, unchanged CXR and cultures with no growth cefepime was discontinued by ID. LTAC evaluation ongoing. No acute events reported overnight. 04/04: IV Lasix stopped today, Seroquel taper started, fentanyl drip on hold and steroids stopped. Pressure support trial again today. 04/05: Patient had to be restarted on fentanyl drip therefore Seroquel was increased back to 250 twice daily and he was started on scheduled narcotics and efforts to wean fentanyl drip. Doxazosin was increased to twice daily as patient still had retention issues on doxazosin once a day. Patient was denied LTAC placement. CPAP trial today. 04/06: Right upper extremity ultrasound obtained due to edema which showed DVT. Patient started on heparin drip. Overnight patient had hypoxia, tachypnea, tachycardia, hypotension and FiO2 was increased to 100%. RT titrating as tolerated. Plan was to start T-piece trials today. Patient has been denied LTAC placement. Hospitalist Physical - Physical exam Narrative exam: General appearance: Present: well-nourished, obese, other (sedated) - EENT Eyes: Present: PERRL, EOM intact ENT: hearing intact, clear oral mucosa - Neck Neck: Present: normal ROM - Respiratory Respiratory effort: normal Respiratory: bilateral: diminished - Cardiovascular Rhythm: regular Heart Sounds: Present: S1 & S2. Absent: systolic murmur, diastolic murmur - Extremities Extremities: no ischemia, pulses intact, pulses symmetrical, No edema, normal temperature, normal color Peripheral Pulses: within normal limits - Abdominal General gastrointestinal: soft, non-tender, non-distended, normal bowel sounds - Integumentary Integumentary: Present: warm, dry - Psychiatric Psychiatric: other - Neurologic Neurologic: other - Allied Health Allied health notes reviewed: nursing, RT - Constitutional Vitals: Temp Pulse Resp BP Pulse Ox 99.2 F 107 H 25 H 107/83 94 04/06/21 16:00 04/06/21 14:00 04/06/21 14:00 04/06/21 14:00 04/06/21 14:00 General appearance: Present: no acute distress, well-nourished, obese, other (On the vent, on sedation) Results - Labs CBC & Chem 7: 04/06/21 15:36 04/05/21 04:15 Labs: Laboratory Last Values WBC 8.7 K/mm3 (4.5-11.0) 04/05/21 04:15 RBC 3.21 M/mm3 (3.65-5.03) L 04/05/21 04:15 Hgb 10.4 gm/dl (11.8-15.2) L 04/06/21 15:36 Hct 32.5 % (35.5-45.6) L 04/06/21 15:36 MCV 94 fl (84-94) 04/05/21 04:15 MCH 31 pg (28-32) 04/05/21 04:15 MCHC 33 % (32-34) 04/05/21 04:15 RDW 16.4 % (13.2-15.2) H 04/05/21 04:15 Plt Count 444 K/mm3 (140-440) H 04/06/21 15:36 Lymph % (Auto) 7.6 % (13.4-35.0) L 03/31/21 13:30 [place] % (Auto) 9.5 % (0.0-7.3) H 03/31/21 13:30 Eos % (Auto) 4.1 % (0.0-4.3) 03/31/21 13:30 Baso % (Auto) 0.5 % (0.0-1.8) 03/31/21 13:30 Lymph # (Auto) 0.6 K/mm3 (1.2-5.4) L 03/31/21 13:30 [place] # (Auto) 0.7 K/mm3 (0.0-0.8) 03/31/21 13:30 Eos # (Auto) 0.3 K/mm3 (0.0-0.4) 03/31/21 13:30 Baso # (Auto) 0.0 K/mm3 (0.0-0.1) 03/31/21 13:30 Add Manual Diff Complete 03/10/21 04:29 Total Counted 100 03/10/21 04:29 Seg Neutrophils % 78.3 % (40.0-70.0) H 03/31/21 13:30 Seg Neuts % (Manual) 94.0 % (40.0-70.0) H 03/10/21 04:29 Band Neutrophils % 0 % 03/10/21 04:29 Lymphocytes % (Manual) 1.0 % (13.4-35.0) L 03/10/21 04:29 Reactive Lymphs % (Man) 0 % 03/10/21 04:29 Monocytes % (Manual) 5.0 % (0.0-7.3) 03/10/21 04:29 Eosinophils % (Manual) 0 % (0.0-4.3) 03/10/21 04:29 Basophils % (Manual) 0 % (0.0-1.8) 03/10/21 04:29 Metamyelocytes % 0 % 03/10/21 04:29 Myelocytes % 0 % 03/10/21 04:29 Promyelocytes % 0 % 03/10/21 04:29 Blast Cells % 0 % 03/10/21 04:29 Nucleated RBC % 3.0 % (0.0-0.9) H 03/10/21 04:29 Seg Neutrophils # 5.8 K/mm3 (1.8-7.7) 03/31/21 13:30 Seg Neutrophils # Man 19.4 K/mm3 (1.8-7.7) H 03/10/21 04:29 Band Neutrophils # 0.0 K/mm3 03/10/21 04:29 Lymphocytes # (Manual) 0.2 K/mm3 (1.2-5.4) L 03/10/21 04:29 Abs React Lymphs (Man) 0.0 K/mm3 03/10/21 04:29 Monocytes # (Manual) 1.0 K/mm3 (0.0-0.8) H 03/10/21 04:29 Eosinophils # (Manual) 0.0 K/mm3 (0.0-0.4) 03/10/21 04:29 Basophils # (Manual) 0.0 K/mm3 (0.0-0.1) 03/10/21 04:29 Metamyelocytes # 0.0 K/mm3 03/10/21 04:29 Myelocytes # 0.0 K/mm3 03/10/21 04:29 Promyelocytes # 0.0 K/mm3 03/10/21 04:29 Blast Cells # 0.0 K/mm3 03/10/21 04:29 WBC Morphology Not Reportable 03/10/21 04:29 Hypersegmented Neuts Not Reportable 03/10/21 04:29 Hyposegmented Neuts Not Reportable 03/10/21 04:29 Hypogranular Neuts Not Reportable 03/10/21 04:29 Smudge Cells Not Reportable 03/10/21 04:29 Toxic Granulation Not Reportable 03/10/21 04:29 Toxic Vacuolation Not Reportable 03/10/21 04:29 Dohle Bodies Not Reportable 03/10/21 04:29 Pelger-Huet Anomaly Not Reportable 03/10/21 04:29 Mely Rods Not Reportable 03/10/21 04:29 Platelet Estimate Consistent w auto 03/10/21 04:29 Clumped Platelets Not Reportable 03/10/21 04:29 Plt Clumps, EDTA Not Reportable 03/10/21 04:29 Large Platelets Not Reportable 03/10/21 04:29 Giant Platelets Not Reportable 03/10/21 04:29 Platelet Satelliting Not Reportable 03/10/21 04:29 Plt Morphology Comment Not Reportable 03/10/21 04:29 RBC Morphology Normal 03/10/21 04:29 Dimorphic RBCs Not Reportable 03/10/21 04:29 Polychromasia Not Reportable 03/10/21 04:29 Hypochromasia Not Reportable 03/10/21 04:29 Poikilocytosis Not Reportable 03/10/21 04:29 Anisocytosis Not Reportable 03/10/21 04:29 Microcytosis Not Reportable 03/10/21 04:29 Macrocytosis Not Reportable 03/10/21 04:29 Spherocytes Not Reportable 03/10/21 04:29 Pappenheimer Bodies Not Reportable 03/10/21 04:29 Sickle Cells Not Reportable 03/10/21 04:29 Target Cells Not Reportable 03/10/21 04:29 Tear Drop Cells Not Reportable 03/10/21 04:29 Ovalocytes Not Reportable 03/10/21 04:29 Helmet Cells Not Reportable 03/10/21 04:29 Longo-Petal Bodies Not Reportable 03/10/21 04:29 Jewett Rings Not Reportable 03/10/21 04:29 Delcambre Cells Not Reportable 03/10/21 04:29 Bite Cells Not Reportable 03/10/21 04:29 Crenated Cell Not Reportable 03/10/21 04:29 Elliptocytes Not Reportable 03/10/21 04:29 Acanthocytes (Spur) Not Reportable 03/10/21 04:29 Rouleaux Not Reportable 03/10/21 04:29 Hemoglobin C Crystals Not Reportable 03/10/21 04:29 Schistocytes Not Reportable 03/10/21 04:29 Malaria parasites Not Reportable 03/10/21 04:29 Shaheen Bodies Not Reportable 03/10/21 04:29 Hem Pathologist Commnt No 03/10/21 04:29 PT 13.6 Sec. (12.2-14.9) 04/06/21 15:36 INR 0.94 (0.87-1.13) 04/06/21 15:36 APTT 37.1 Sec. (24.2-36.6) H 04/06/21 15:36 D-Dimer 1359.12 ng/mlDDU (0-234) H 03/17/21 04:40 ABG pH 7.341 pH Units (7.350-7.450) L 04/06/21 11:50 POC ABG pCO2 57.4 mmHg (32.0-48.0) H 04/06/21 04:49 ABG pCO2 73.5 mm Hg 04/06/21 11:50 POC ABG pO2 55.1 mmHg (83-108) L 04/06/21 04:49 ABG pO2 108.9 mm Hg (80.0-90.0) H 04/06/21 11:50 POC ABG HCO3 36.2 04/06/21 04:49 ABG HCO3 38.9 mmol/L (20.0-26.0) H 04/06/21 11:50 ABG O2 Saturation 97.4 % (95.0-99.0) 04/06/21 11:50 ABG O2 Content 15.6 (0.0-44) 04/06/21 11:50 POC ABG Base Excess 10.0 04/06/21 04:49 ABG Base Excess 10.6 mmol/L (-2.0-3.0) H 04/06/21 11:50 ABG Hemoglobin 11.5 gm/dl (14.0-18.0) L 04/06/21 11:50 ABG Oxyhemoglobin 87.5 (94-98) L 04/06/21 04:49 ABG Carboxyhemoglobin 1.5 % (0.0-5.0) 04/06/21 11:50 ABG Methemoglobin 0.7 % (0.0-1.5) 04/06/21 11:50 ABG Sodium 134.2 mmol/L (136.0-145.0) L 03/12/21 21:54 ABG Potassium 4.9 mmol/L (3.40-4.50) H 03/12/21 21:54 ABG Chloride 99.0 mmol/L (98-107) 03/12/21 21:54 ABG Glucose 306 mg/dL (65-95) H 03/12/21 21:54 Oxyhemoglobin 95.3 % (95.0-99.0) 04/06/21 11:50 Carboxyhemoglobin 0.8 (0.5-1.5) 04/06/21 04:49 FiO2 70 % 04/06/21 11:50 FiO2 % 40.0 04/06/21 04:49 Sodium 138 mmol/L (137-145) 04/05/21 04:15 Potassium 4.6 mmol/L (3.6-5.0) 04/05/21 04:15 Chloride 97.6 mmol/L (98-107) L 04/05/21 04:15 Carbon Dioxide 32 mmol/L (22-30) H 04/05/21 04:15 Anion Gap 13 mmol/L 04/05/21 04:15 BUN 17 mg/dL (9-20) 04/05/21 04:15 Creatinine 0.5 mg/dL (0.8-1.3) L 04/05/21 04:15 Estimated GFR > 60 ml/min 04/05/21 04:15 BUN/Creatinine Ratio 34 % 04/05/21 04:15 Glucose 147 mg/dL (75-100) H 04/05/21 04:15 POC Glucose 171 mg/dL (70-105) H 04/06/21 11:42 Lactic Acid 1.90 mmol/L (0.7-2.0) 03/08/21 23:51 Calcium 8.7 mg/dL (8.4-10.2) 04/05/21 04:15 Phosphorus 2.90 mg/dL (2.5-4.5) 04/05/21 04:15 Magnesium 2.00 mg/dL (1.7-2.3) 04/05/21 04:15 Ferritin 976.4 ng/mL (30.0-300.0) H 03/15/21 04:00 Total Bilirubin 0.20 mg/dL (0.1-1.2) 03/12/21 08:03 AST 10 units/L (5-40) 03/12/21 08:03 ALT 16 units/L (7-56) 03/12/21 08:03 Alkaline Phosphatase 77 units/L (35-129) 03/12/21 08:03 Lactate Dehydrogenase 630 units/L (91-180) H 03/15/21 06:06 C-Reactive Protein 0.40 mg/dL (0.00-1.30) 03/17/21 04:40 NT-Pro-B Natriuret Pep 1053 pg/mL (0-900) H 03/08/21 20:24 Total Protein 6.0 g/dL (6.3-8.2) L 03/12/21 08:03 Albumin 2.9 g/dL (3.9-5) L 03/12/21 08:03 Albumin/Globulin Ratio 0.9 % 03/12/21 08:03 Triglycerides 305 mg/dL (2-149) H 03/22/21 07:26 Procalcitonin 0.17 ng/mL (<0.15) 04/01/21 07:16 Arterial Blood Glucose 306 mg/dL (65-95) H 03/12/21 21:54 Arterial Blood Ionized Calcium 5.0 mg/dL (4.6-5.3) 03/12/21 21:54 Urine Color Yellow (Yellow) 03/09/21 04:10 Urine Turbidity Slightly-cloudy (Clear) 03/09/21 04:10 Urine pH 5.0 (5.0-7.0) 03/09/21 04:10 Ur Specific [place] 1.041 (1.003-1.030) H 03/09/21 04:10 Urine Protein 100 mg/dl mg/dL (Negative) 03/09/21 04:10 Urine Glucose (UA) Neg mg/dL (Negative) 03/09/21 04:10 Urine Ketones Neg mg/dL (Negative) 03/09/21 04:10 Urine Blood Mod (Negative) 03/09/21 04:10 Urine Nitrite Neg (Negative) 03/09/21 04:10 Urine Bilirubin Neg (Negative) 03/09/21 04:10 Urine Urobilinogen 2.0 mg/dL (<2.0) 03/09/21 04:10 Ur Leukocyte Esterase Neg (Negative) 03/09/21 04:10 Urine WBC (Auto) 4.0 /HPF (0.0-6.0) 03/09/21 04:10 Urine RBC (Auto) 1.0 /HPF (0.0-6.0) 03/09/21 04:10 Urine Bacteria (Auto) 1+ /HPF (Negative) 03/09/21 04:10 Urine Mucus Few /HPF 03/09/21 04:10 Coronavirus (PCR) Positive (Negative) A 03/09/21 08:00 Miscellaneous Test Flexitest 1 03/16/21 13:14 Microbiology: Microbiology 03/31/21 13:30 Peripheral/Venous Blood Culture - Final NO GROWTH AFTER 5 DAYS 03/31/21 14:00 Peripheral/Venous Blood Culture - Final NO GROWTH AFTER 5 DAYS Good/IV: Voiding Method Indwelling Catheter Active Medications - Current Medications Current Medications: Generic Name Dose Route Start Last Admin Trade Name Freq PRN Reason Stop Dose Admin Acetaminophen 650 mg 03/09/21 01:26 04/05/21 16:16 Acetaminophen 325 Mg Tab PO 650 mg Q4H PRN Administration Pain MILD(1-3)/Fever >100.5/RAYO Albuterol 2.5 mg 03/09/21 01:26 03/18/21 21:06 Albuterol 2.5 Mg/3 Ml Nebu IH 2.5 mg Q4HRT PRN Administration Shortness Of Breath Amlodipine Besylate 5 mg 03/30/21 10:00 04/06/21 09:15 Amlodipine 5 Mg Tab PO 5 mg QDAY BLANCA Administration Arformoterol Tartrate 15 mcg 03/11/21 20:00 04/06/21 08:30 Arformoterol 15 Mcg/2 Ml Nebu IH 15 mcg Q12HRT BLANCA Administration Bisacodyl 10 mg 03/26/21 13:43 03/26/21 13:51 Bisacodyl 10 Mg Rect Supp OR 10 mg QDAY PRN Administration Constipation Budesonide 0.5 mg 04/06/21 20:00 Budesonide 0.5 Mg/2 Ml Nebu IH Q12HRT BLANCA Chlordiazepoxide HCl 75 mg 03/22/21 18:00 04/06/21 13:10 Chlordiazepoxide 25 Mg Cap PO 75 mg Q6HR BLANCA Administration Dextrose 0 ml 03/20/21 10:52 Dextrose 10% *Hypoglycemia IV PRN PRN Hypoglycemia Doxazosin Mesylate 1 mg 04/05/21 22:00 04/06/21 09:15 Doxazosin 1 Mg Tab PO 1 mg BID BLANCA Administration Famotidine 20 mg 03/12/21 22:00 04/06/21 11:37 Famotidine 20 Mg Tab FEEDTUBE 20 mg BID BLANCA Administration Fentanyl 1 applic 03/31/21 15:00 04/06/21 11:20 Fentanyl 75 Mcg/Hr Patch 72hr TD 1 applic Q3D BLANCA Administration Fentanyl 50 mcg 04/04/21 17:00 04/06/21 02:44 Fentanyl 100 Mcg/2 Ml Inj IV 50 mcg Q10MIN PRN Administration ANALGESIA Furosemide 20 mg 04/06/21 18:00 Furosemide 20 Mg/2 Ml Inj IV 04/07/21 18:01 0600,1800 [facility] Haloperidol Lactate 5 mg 04/04/21 15:09 04/04/21 15:18 Haloperidol Lactate 5 Mg/1 Ml Inj IV 04/09/21 15:08 5 mg Q6H PRN Administration Agitation Hydralazine HCl 50 mg 03/23/21 14:26 04/06/21 13:07 Hydralazine 25 Mg Tab PO 50 mg Q8HR [facility] Administration Hydrophilic Ointment 1 applic 03/10/21 15:39 Lip Therapy Vaseline TP Q2HR PRN Dry Lips Fentanyl Citrate 2,000 mcg in 100 mls @ 6.1 mls/hr 04/04/21 17:00 04/06/21 05:09 Fentanyl Drip Premix IV 2 mcg/kg/hr TITR BLANCA 12.2 mls/hr Administration Protocol 1 MCG/KG/HR Heparin Sodium/Sodium Chloride 25,000 unit in 500 mls @ 30 mls/hr 04/06/21 16:00 Heparin/ 0.45% Nacl-25,000 Unit/500 Ml IV TITR BLANCA Protocol 1,500 UNITS/HR Insulin Glargine 15 units 03/29/21 22:00 04/05/21 21:08 Insulin Glargine 100 Units/Ml SUB-Q 15 units QHS BLANCA Administration Insulin Human Lispro 0 unit 03/11/21 18:00 04/06/21 12:00 Insulin Lispro 100 Unit/Ml SUB-Q 3 unit Q6HR BLANCA Administration Protocol Metoprolol Tartrate 12.5 mg 03/21/21 22:00 04/06/21 09:15 Metoprolol Tartrate 25 Mg Tab PO 12.5 mg BID BLANCA Administration Midazolam HCl 2 mg 03/15/21 08:49 04/06/21 04:04 Midazolam 2 Mg/2 Ml Inj IV 2 mg Q2H PRN Administration VENT SYNCHRONY Multi-Ingred Cream/Lotion/Oil/Oint 1 applic 03/10/21 15:39 Mineral Oil/Petrolatum, White Ophth Oint 3.5 Gm OU Q4HR PRN Dry Eye(s) Ondansetron HCl 4 mg 03/09/21 01:26 Ondansetron 4 Mg/2 Ml Inj IV Q8H PRN Nausea And Vomiting Oxycodone HCl 5 mg 04/05/21 14:00 04/06/21 13:07 Oxycodone 5 Mg Tab PO 5 mg TID BLANCA Administration Phenyleph/Shark Oil/Min Oil/Petrol 1 applic 03/22/21 17:35 04/06/21 04:04 Pe/Mo/Pet,Wh 10 Applic/28 Gm Tube OR 1 applic Q6HR PRN Administration Hemorrhoids Polyethylene Glycol 17 gm 04/02/21 10:00 04/06/21 11:36 Polyethylene Glycol 3350 17 Gm Powder FEEDTUBE 17 gm QDAY BLANCA Administration Quetiapine Fumarate 200 mg 04/04/21 22:00 04/06/21 11:38 Quetiapine 200 Mg Tab PO 200 mg BID BLANCA Administration Quetiapine Fumarate 50 mg 04/05/21 14:00 04/06/21 11:39 Quetiapine 25 Mg Tab PO 50 mg BID BLANCA Administration Senna/Docusate Sodium 2 tab 04/02/21 10:00 04/06/21 11:37 Sennosides/Docusate Sodium 8.6/50 Mg Tab FEEDTUBE 2 tab BID BLANCA Administration Sodium Chloride 10 ml 03/09/21 10:00 04/06/21 09:15 Sodium Chloride 0.9% 10 Ml Flush Syringe IV 10 ml BID BLANCA Administration Sodium Chloride 10 ml 03/09/21 01:26 04/02/21 21:13 Sodium Chloride 0.9% 10 Ml Flush Syringe IV 10 ml PRN PRN Administration LINE FLUSH Sodium Chloride 10 ml 03/20/21 09:48 Sodium Chloride 0.9% 50 Ml Ivpb IV PRN PRN FLUSH Nutrition/Malnutrition Assess - Dietary Evaluation Nutrition/Malnutrition Findings: Nutrition Notes Start: 03/09/21 08:49 Freq: Status: Active Protocol: Document 03/31/21 14:51 BRIAN (Rec: 03/31/21 14:52 NHALL [email or web address]) Nutrition Notes Initial or Follow up Reassessment Current Diagnosis Diabetes,Sepsis,Hypertension, Respiratory Failure Other Pertinent Diagnosis COVID-19, Bilateral Pneumonia. Current Diet TF-Glucerna 1.2 at 70 ml/hr Labs/Tests Na 140 yesterday Pertinent Medications Lasix, Reglan, Prednisone Height 5 ft 11 in Weight 122 kg [place] Body Weight (kg) 78.18 BMI 37.5 Weight Status Obese Subjective/Other Information Pt remains on vent support. Trach and PEG placed on 2/2. Per RN, pt tolerating TF at goal rate. Percent of energy/protein needs met: 82% energy 78% pro Burn Absent Trauma Absent #1 Nutrition Diagnosis Inadequate oral intake Diagnosis Progress(for reassessment Continues documentation) Is patient on ventilator? Yes Is Patient Ambulatory and/or Out of Bed No REE-([facility]-confined to bed) 2449.140 Calculation Used for Recommendations 70-80% energy needs Additional Notes Energy needs: 3467-7069 kcal/ day Pro needs 1.3g/kg adjBW: 130g/ day Fluid needs 1ml/kcal Nutrition Intervention Nutrition Support: Continue Glucerna 1.2 at 70ml/ hr with 110ml water flush q4h. Kcal 2,016 Protein (gm) 101 Carbohydrates (gm) 192 Fat (gm) 101 Fluid (mL) 1,352 Fiber (gm) 27 Goal #1 TF tolerance Goal #2 TF to meet at least 75% energy and pro needs Follow-Up By: 04/07/21 Additional Comments F/U: stable TF, vent status, wt
[2021-04-06] MEDS: FUROSEMIDE 20 MG/2 ML INJ IV SCH (17:28)
[2021-04-06] MEDS: HEPARIN/ 0.45% NACL DRIP 25,000 UNIT/500 ML BAG IV SCH (17:52)
[2021-04-06] MEDS: INSULIN GLARGINE 100 UNITS/ML SUB-Q SCH (21:46)
[2021-04-06] MEDS ORDERED: ENOXAPARIN 100 MG/1 ML INJ SUB-Q SCH (22:00)
[2021-04-06] MEDS: BUDESONIDE 0.5 MG/2 ML NEBU IH SCH (22:08)
[2021-04-07] MEDS: INSULIN LISPRO 100 UNIT/ML SUB-Q SCH ×4 (00:36→18:42)
[2021-04-07] MEDS: chlordiazePOXIDE 25 MG CAP PO SCH ×4 (00:50→18:41)
[2021-04-07] MEDS ORDERED: HEPARIN 10,000 UNITS/10 ML VIAL IV PRN (01:43)
[2021-04-07] MEDS: HEPARIN 10,000 UNITS/10 ML VIAL IV PRN ×3 (02:05→20:37)
[2021-04-07] MEDS: ACETAMINOPHEN 325 MG TAB PO PRN ×2 (03:43→21:40)
[2021-04-07] MEDS: hydrALAZINE 25 MG TAB PO SCH ×3 (05:59→21:39)
[2021-04-07] MEDS: FUROSEMIDE 20 MG/2 ML INJ IV SCH ×2 (06:00→18:42)
[2021-04-07] MEDS: fentaNYL DRIP Premix 2,000 MCG/100 ML BAG IV SCH ×3 (06:03→22:27)
[2021-04-07 06:30] LABS: Hematocrit 29.8 % (35.5-45.6); Hemoglobin 9.6 gm/dl (11.8-15.2); Mean Corpuscular HGB Conc 32 % (32-34); Mean Corpuscular Volume 93 fl (84-94); Platelet Count 455 K/mm3 (140-440)
[2021-04-07 06:40] LABS: Blood Urea Nitrogen 17 mg/dL (9-20); Calcium 8.8 mg/dL (8.4-10.2); Hemolysis Index 2
[2021-04-07 06:44] LABS: BUN/Creatinine Ratio 34
[2021-04-07] MEDS: BUDESONIDE 0.5 MG/2 ML NEBU IH SCH ×2 (08:13→21:01)
[2021-04-07] MEDS: ARFORMOTEROL 15 MCG/2 ML NEBU IH SCH ×2 (08:15→21:01)
[2021-04-07] MEDS: oxyCODONE 5 MG TAB PO SCH ×3 (08:55→20:38)
[2021-04-07] MEDS: HEPARIN/ 0.45% NACL DRIP 25,000 UNIT/500 ML BAG IV SCH ×2 (09:17→20:37)
[2021-04-07] MEDS: SENNOSIDES/DOCUSATE SODIUM 8.6/50 MG TAB FEEDTUBE SCH ×2 (09:18→21:39)
[2021-04-07] MEDS: DOXAZOSIN 1 MG TAB PO SCH ×2 (09:18→21:40)
[2021-04-07] MEDS: POLYETHYLENE GLYCOL 3350 17 GM POWDER FEEDTUBE SCH (09:18)
[2021-04-07] MEDS: amLODIPine 5 MG TAB PO SCH (09:18)
[2021-04-07] MEDS: METOPROLOL TARTRATE 25 MG TAB PO SCH ×2 (09:18→21:40)
[2021-04-07] MEDS: QUEtiapine 200 MG TAB PO SCH ×2 (09:18→21:40)
[2021-04-07] MEDS: QUEtiapine 25 MG TAB PO SCH ×2 (09:19→21:40)
[2021-04-07] MEDS: FAMOTIDINE 20 MG TAB FEEDTUBE SCH ×2 (09:20→21:39)
--- NOTE | 2021-04-07 10:33 | Progress Note ---
Assessment and Plan Cultures: SARS CoV2 PCR: positive 03/08/2021 blood culture: no growth 03/10/2021 sputum culture: Usual respiratory marlyn 03/16/2021 blood culture: no growth 03/18/2021 sputum culture: Stenotrophomonas 03/31/2021 Blood culture: no growth 03/31/2021 tracheal aspirate: usual resp marlyn A/P: 61-year-old male with diabetes, hypertension admitted to the hospital with complaints of shortness of breath and feeling weak for the last 1 week: #Sepsis secondary to bilateral pneumonia: secondary to COVID-19. Completed remd esivir, s/p Actemra, steroids. Completed abx for bacterial pneumonia, Stenotrophomonas. #Acute hypoxic respiratory failure: s/p trach and PEG. #DM #HTN #Acute DVT in RUE Recs: -fever could be secondary to DVT -if persistently febrile and WBC rises, reculture and then restart abx: IV Cefepime + Vancomycin Sangita Nicole MD, FACP, [facility] ([facility]) O: [phone] F: [phone] Subjective Date of service: 04/07/21 Principal diagnosis: COVID-19 infection; DM II; Bilateral pneumonia; Obesity; HTN Interval history: Fever x 1. Remains on the vent via trach. Found to have acute DVT in RUE. Objective - Exam Narrative Exam: Physical Exam Constitutional: on the vent Head, Ears, Nose: Normocephalic, atraumatic. External ears, nose normal Eyes: Conjunctivae/corneas clear. No icterus. Neck: trach + Cardiovascular: S1, S2 + Respiratory: AE fair GI: Soft, bowel sounds +, PEG + Musculoskeletal: edema + Skin: No rash or abscess Hem/Lymphatic: No palpable cervical or supraclavicular nodes. No lymphangitis Psych: no agitation Neurological: on the vent, exam limited - Constitutional Vitals: Vital Signs Temp Pulse Resp BP Pulse Ox 98.6 F 113 H 17 115/76 88 04/07/21 06:09 04/07/21 09:18 04/07/21 09:00 04/07/21 09:18 04/07/21 09:00 Temperature -Last 24 Hours Temperature 98.6 F Temperature 101.3 F Temperature 97.7 F Temperature 97.9 F Temperature 99.2 F - Labs CBC & Chem 7: 04/07/21 06:08 04/07/21 06:08 Labs: Abnormal lab results 04/06/21 04/06/21 04/06/21 Range/Units 11:42 11:50 15:36 RBC (3.65-5.03) M/mm3 Hgb 10.4 L (11.8-15.2) gm/dl Hct 32.5 L (35.5-45.6) % RDW (13.2-15.2) % Plt Count 444 H (140-440) K/mm3 APTT (24.2-36.6) Sec. Heparin Anti-Xa Level (0.3-0.7) U.I./ml ABG pH 7.341 L (7.350-7.450) pH Units ABG pO2 108.9 H (80.0-90.0) mm Hg ABG HCO3 38.9 H (20.0-26.0) mmol/L ABG Base Excess 10.6 H (-2.0-3.0) mmol/L ABG Hemoglobin 11.5 L (14.0-18.0) gm/dl Carbon Dioxide (22-30) mmol/L Creatinine (0.8-1.3) mg/dL Glucose (75-100) mg/dL POC Glucose 171 H (70-105) mg/dL 04/06/21 04/06/21 04/07/21 Range/Units 15:36 17:57 00:30 RBC (3.65-5.03) M/mm3 Hgb (11.8-15.2) gm/dl Hct (35.5-45.6) % RDW (13.2-15.2) % Plt Count (140-440) K/mm3 APTT 37.1 H (24.2-36.6) Sec. Heparin Anti-Xa Level < 0.10 L (0.3-0.7) U.I./ml ABG pH (7.350-7.450) pH Units ABG pO2 (80.0-90.0) mm Hg ABG HCO3 (20.0-26.0) mmol/L ABG Base Excess (-2.0-3.0) mmol/L ABG Hemoglobin (14.0-18.0) gm/dl Carbon Dioxide (22-30) mmol/L Creatinine (0.8-1.3) mg/dL Glucose (75-100) mg/dL POC Glucose 151 H (70-105) mg/dL 04/07/21 04/07/21 04/07/21 Range/Units 00:32 05:34 06:08 RBC 3.20 L (3.65-5.03) M/mm3 Hgb 9.6 L (11.8-15.2) gm/dl Hct 29.8 L (35.5-45.6) % RDW 16.0 H (13.2-15.2) % Plt Count 455 H (140-440) K/mm3 APTT (24.2-36.6) Sec. Heparin Anti-Xa Level (0.3-0.7) U.I./ml ABG pH (7.350-7.450) pH Units ABG pO2 (80.0-90.0) mm Hg ABG HCO3 (20.0-26.0) mmol/L ABG Base Excess (-2.0-3.0) mmol/L ABG Hemoglobin (14.0-18.0) gm/dl Carbon Dioxide (22-30) mmol/L Creatinine (0.8-1.3) mg/dL Glucose (75-100) mg/dL POC Glucose 149 H 182 H (70-105) mg/dL 04/07/21 04/07/21 Range/Units 06:08 07:55 RBC (3.65-5.03) M/mm3 Hgb (11.8-15.2) gm/dl Hct (35.5-45.6) % RDW (13.2-15.2) % Plt Count (140-440) K/mm3 APTT (24.2-36.6) Sec. Heparin Anti-Xa Level < 0.10 L (0.3-0.7) U.I./ml ABG pH (7.350-7.450) pH Units ABG pO2 (80.0-90.0) mm Hg ABG HCO3 (20.0-26.0) mmol/L ABG Base Excess (-2.0-3.0) mmol/L ABG Hemoglobin (14.0-18.0) gm/dl Carbon Dioxide 35 H (22-30) mmol/L Creatinine 0.5 L (0.8-1.3) mg/dL Glucose 216 H (75-100) mg/dL POC Glucose (70-105) mg/dL
--- NOTE | 2021-04-07 12:26 | Progress Note ---
Assessment and Plan Acute hypoxemic respiratory failure, on continuous noninvasive ventilation COVID-19 infection Bilateral pneumonia History of diabetes Obesity Hypertension Leukocytosis Possible venous thromboembolic phenomena with significantly elevated D-dimers DM II Elevated serum inflammatory markers to include CRP levels, ferritin and LDH - full anticoagulation for DVT acutely - will repeat bilateral lower extremity dopplers re: duration / intensity of anticoagulant therapy - complete lasix 20 mg IV q12h X 2 more doses - keep peep at 10 - CXR in am - follow clinically, monitor WBC / Fevers - continue LTAC evaluation - continue care as below otherwise; - continue Daily SAT and SBT assessment as tolerated - continue to wean supplemental oxygen for target O2 sat's > 90% acutely - VAP bundle addressed - continue lung protective strategies - continue bronchodilators with routiune trach care and pulmonary hygiene per RT - wean per pulmonary driven protocols otherwise - continue accuchecks with glycemic control per SSI (While critically ill target blood glucose of 140-180 mg/dL; avoid hypoglycemia) - sedation prn for target RASS 0 to -1 - avoid nephrotoxins, renally dose all medications - avoid benzodiazepine's, reduce the possibility of delirium - AB's per ID rec's - prn analgesia per pain score - Maintenance of sleep-wake cycle, avoid delirium - G.I. & VTE prophylaxis - PT/OT/ROM exercises - mobility protocols for pressure ulcer prophylaxis - Monitor hemodynamics closely - continue other care per attending / other consultants - discharge planning ongoing concurrently COVID SPECIFIC INTERVENTIONS - Remdesivir as per ID/Pulmonary developed protocols (received) - continue systemic steroids for severe COVID-19 infection empirically (Decadron) - follow repeat COVID tests results - zinc and vitamin C supplementation - Monitor inflammatory markers per facility protocol - ferritin, Ddimer, CRP - therapeutic anticoagulation per system Protocol based on d-dimer and clinical considerations (treatment dose) - contact and airborne isolation discontinued .... Re-evaluate in am & prn CONDITION: CRITICAL PROGNOSIS: GUARDED CODE STATUS: FULL CODE The high probability of a clinically significant, sudden or life-threatening deterioration of the [respiratory, cardiovascular & hematologic] system(s) required my full and direct attention, intervention and personal management. The aggregate critical care time was [36] minutes without overlap. Time includes spent on; [x] Data Review and interpretation [x] Patient assessment and monitoring of vital signs [x] Documentation [x] Medication orders and management Subjective Date of service: 04/07/21 Principal diagnosis: COVID-19 infection; DM II; Bilateral pneumonia; Obesity; HTN Interval history: Patient is seen today for: Acute hypoxemic respiratory failure; COVID-19 infection; DM II; Bilateral pneumonia; Obesity; HTN Seen and examined at bedside; 24hour events reviewed; nursing and respiratory care staff consulted; no adverse overnight events reported to me; resting in bed; remains on MVS; dopplers positive for brachial DVT; good diuresis but minimal negative fluid balance; AMS is persistent; FiO2 remains at 70% but O2 sats labile Objective Vital Signs - 12hr 04/07/21 04/07/21 04/07/21 00:31 01:00 02:00 Temperature Pulse Rate 115 H 115 H 116 H Pulse Rate [ Bilateral Throughout] Pulse Rate [ From Monitor] Respiratory 25 H 24 22 Rate Respiratory Rate [Bilateral Throughout] Blood Pressure 131/66 116/76 119/69 O2 Sat by Pulse 93 91 95 Oximetry O2 Sat by Pulse Oximetry [ Assessment] 04/07/21 04/07/21 04/07/21 03:00 03:03 03:34 Temperature Pulse Rate 117 H 115 H Pulse Rate [ Bilateral Throughout] Pulse Rate [ 114 H From Monitor] Respiratory 25 H 21 Rate Respiratory Rate [Bilateral Throughout] Blood Pressure 142/69 O2 Sat by Pulse 88 91 Oximetry O2 Sat by Pulse 95 Oximetry [ Assessment] 04/07/21 04/07/21 04/07/21 03:39 04:00 04:41 Temperature 101.3 F H Pulse Rate 115 H 115 H Pulse Rate [ Bilateral Throughout] Pulse Rate [ From Monitor] Respiratory 20 Rate Respiratory Rate [Bilateral Throughout] Blood Pressure 140/59 140/59 O2 Sat by Pulse 95 94 Oximetry O2 Sat by Pulse Oximetry [ Assessment] 04/07/21 04/07/21 04/07/21 05:00 06:00 06:09 Temperature 98.6 F Pulse Rate 114 H 111 H Pulse Rate [ Bilateral Throughout] Pulse Rate [ From Monitor] Respiratory 19 18 Rate Respiratory Rate [Bilateral Throughout] Blood Pressure 114/56 114/66 O2 Sat by Pulse 92 93 Oximetry O2 Sat by Pulse Oximetry [ Assessment] 04/07/21 04/07/21 04/07/21 07:00 08:00 08:01 Temperature Pulse Rate 112 H 110 H 112 H Pulse Rate [ Bilateral Throughout] Pulse Rate [ 110 H From Monitor] Respiratory 17 17 Rate Respiratory Rate [Bilateral Throughout] Blood Pressure 110/64 123/72 123/72 O2 Sat by Pulse 89 85 94 Oximetry O2 Sat by Pulse Oximetry [ Assessment] 04/07/21 04/07/21 04/07/21 08:16 09:00 09:18 Temperature Pulse Rate 112 H 113 H Pulse Rate [ 111 H Bilateral Throughout] Pulse Rate [ From Monitor] Respiratory 17 Rate Respiratory 16 Rate [Bilateral Throughout] Blood Pressure 115/76 115/76 O2 Sat by Pulse 88 Oximetry O2 Sat by Pulse Oximetry [ Assessment] 04/07/21 04/07/21 04/07/21 10:00 11:00 12:00 Temperature Pulse Rate 110 H 111 H 114 H Pulse Rate [ Bilateral Throughout] Pulse Rate [ 114 H From Monitor] Respiratory 15 16 20 Rate Respiratory Rate [Bilateral Throughout] Blood Pressure 126/67 127/78 133/69 O2 Sat by Pulse 92 90 90 Oximetry O2 Sat by Pulse Oximetry [ Assessment] Constitutional: agitated, appears uncomfortable, other (elderly obese male with mildly increased respiratory effort at rest) Eyes: non-icteric ENT: oropharynx moist, other (+ midline tracheostomy) Neck: supple, no lymphadenopathy, no JVD, other (large circumference) Effort: mildly labored Ascultation: Bilateral: diminished breath sounds, rhonchi Percussion: Bilateral: not dull Cardiovascular: regular rate and rhythm, other (tachycardia, S1,S2) Gastrointestinal: normoactive bowel sounds, soft, non-tender, non-distended (protuberant) Integumentary: normal Extremities: no cyanosis, pulses normal, no ischemia or petechiae, edema (upper extremities), other Neurologic: non-focal exam (grossly), pupils equal and round, other (sedated) Psychiatric: other (unable to assess re: AMS) CBC and BMP: 04/07/21 06:08 04/07/21 06:08 ABG, PT/INR, D-dimer: ABG ABG pH 7.341 pH Units (7.350-7.450) L 04/06/21 11:50 POC ABG pCO2 57.4 mmHg (32.0-48.0) H 04/06/21 04:49 ABG pCO2 73.5 mm Hg 04/06/21 11:50 POC ABG pO2 55.1 mmHg (83-108) L 04/06/21 04:49 ABG pO2 108.9 mm Hg (80.0-90.0) H 04/06/21 11:50 POC ABG HCO3 36.2 04/06/21 04:49 ABG O2 Saturation 97.4 % (95.0-99.0) 04/06/21 11:50 PT/INR, D-dimer PT 13.6 Sec. (12.2-14.9) 04/06/21 15:36 INR 0.94 (0.87-1.13) 04/06/21 15:36 D-Dimer 1359.12 ng/mlDDU (0-234) H 03/17/21 04:40 Abnormal lab findings: Abnormal Labs 03/08/21 03/08/21 03/08/21 20:24 20:24 20:24 WBC 22.6 H RBC 5.44 H Hgb 15.7 H Hct 49.2 H MCV MCHC RDW Plt Count Lymph % (Auto) [place] % (Auto) Lymph # (Auto) [place] # (Auto) Seg Neutrophils % Seg Neuts % (Manual) 83.0 H Lymphocytes % (Manual) 9.0 L Monocytes % (Manual) 8.0 H Nucleated RBC % Seg Neutrophils # Seg Neutrophils # Man 18.8 H Lymphocytes # (Manual) Monocytes # (Manual) 1.8 H PT 16.1 H INR 1.17 H APTT D-Dimer > 77288 H Heparin Anti-Xa Level ABG pH POC ABG pCO2 POC ABG pO2 ABG pO2 ABG HCO3 ABG O2 Saturation ABG Base Excess ABG Hemoglobin ABG Oxyhemoglobin ABG Sodium ABG Potassium ABG Glucose Oxyhemoglobin Sodium 136 L Potassium Chloride 93.9 L Carbon Dioxide BUN 29 H Creatinine Glucose 208 H POC Glucose Lactic Acid Calcium Phosphorus Magnesium Ferritin Lactate Dehydrogenase 624 H C-Reactive Protein 18.00 H NT-Pro-B Natriuret Pep 1053 H Total Protein Albumin Triglycerides Arterial Blood Glucose Ur Specific [place] Coronavirus (PCR) 03/08/21 03/08/21 03/09/21 20:24 20:24 04:10 WBC RBC Hgb Hct MCV MCHC RDW Plt Count Lymph % (Auto) [place] % (Auto) Lymph # (Auto) [place] # (Auto) Seg Neutrophils % Seg Neuts % (Manual) Lymphocytes % (Manual) Monocytes % (Manual) Nucleated RBC % Seg Neutrophils # Seg Neutrophils # Man Lymphocytes # (Manual) Monocytes # (Manual) PT INR APTT D-Dimer Heparin Anti-Xa Level ABG pH POC ABG pCO2 POC ABG pO2 ABG pO2 ABG HCO3 ABG O2 Saturation ABG Base Excess ABG Hemoglobin ABG Oxyhemoglobin ABG Sodium ABG Potassium ABG Glucose Oxyhemoglobin Sodium Potassium Chloride Carbon Dioxide BUN Creatinine Glucose POC Glucose Lactic Acid 2.10 H* Calcium Phosphorus Magnesium Ferritin 877.5 H Lactate Dehydrogenase C-Reactive Protein NT-Pro-B Natriuret Pep Total Protein Albumin Triglycerides Arterial Blood Glucose Ur Specific [place] 1.041 H Coronavirus (PCR) 03/09/21 03/09/21 03/09/21 07:46 08:00 13:01 WBC RBC Hgb Hct MCV MCHC RDW Plt Count Lymph % (Auto) [place] % (Auto) Lymph # (Auto) [place] # (Auto) Seg Neutrophils % Seg Neuts % (Manual) Lymphocytes % (Manual) Monocytes % (Manual) Nucleated RBC % Seg Neutrophils # Seg Neutrophils # Man Lymphocytes # (Manual) Monocytes # (Manual) PT INR APTT D-Dimer Heparin Anti-Xa Level ABG pH POC ABG pCO2 POC ABG pO2 ABG pO2 ABG HCO3 ABG O2 Saturation ABG Base Excess ABG Hemoglobin ABG Oxyhemoglobin ABG Sodium ABG Potassium ABG Glucose Oxyhemoglobin Sodium Potassium Chloride Carbon Dioxide BUN Creatinine Glucose POC Glucose 191 H 182 H Lactic Acid Calcium Phosphorus Magnesium Ferritin Lactate Dehydrogenase C-Reactive Protein NT-Pro-B Natriuret Pep Total Protein Albumin Triglycerides Arterial Blood Glucose Ur Specific [place] Coronavirus (PCR) Positive A 03/09/21 03/09/21 03/09/21 15:19 17:48 18:10 WBC RBC Hgb Hct MCV MCHC RDW Plt Count Lymph % (Auto) [place] % (Auto) Lymph # (Auto) [place] # (Auto) Seg Neutrophils % Seg Neuts % (Manual) Lymphocytes % (Manual) Monocytes % (Manual) Nucleated RBC % Seg Neutrophils # Seg Neutrophils # Man Lymphocytes # (Manual) Monocytes # (Manual) PT INR APTT D-Dimer Heparin Anti-Xa Level ABG pH POC ABG pCO2 POC ABG pO2 ABG pO2 47.3 L ABG HCO3 26.3 H ABG O2 Saturation 83.7 L ABG Base Excess ABG Hemoglobin ABG Oxyhemoglobin ABG Sodium ABG Potassium ABG Glucose Oxyhemoglobin 82.1 L Sodium Potassium Chloride Carbon Dioxide BUN 29 H Creatinine Glucose 214 H POC Glucose 194 H Lactic Acid Calcium Phosphorus Magnesium Ferritin Lactate Dehydrogenase C-Reactive Protein NT-Pro-B Natriuret Pep Total Protein Albumin 3.4 L Triglycerides Arterial Blood Glucose Ur Specific [place] Coronavirus (PCR) 03/09/21 03/10/21 03/10/21 20:40 04:29 04:29 WBC 20.6 H RBC 5.07 H Hgb Hct 46.2 H MCV MCHC RDW Plt Count Lymph % (Auto) [place] % (Auto) Lymph # (Auto) [place] # (Auto) Seg Neutrophils % Seg Neuts % (Manual) 94.0 H Lymphocytes % (Manual) 1.0 L Monocytes % (Manual) Nucleated RBC % 3.0 H Seg Neutrophils # Seg Neutrophils # Man 19.4 H Lymphocytes # (Manual) 0.2 L Monocytes # (Manual) 1.0 H PT INR APTT D-Dimer Heparin Anti-Xa Level ABG pH POC ABG pCO2 POC ABG pO2 ABG pO2 ABG HCO3 ABG O2 Saturation ABG Base Excess ABG Hemoglobin ABG Oxyhemoglobin ABG Sodium ABG Potassium ABG Glucose Oxyhemoglobin Sodium Potassium Chloride Carbon Dioxide BUN 29 H Creatinine Glucose 188 H POC Glucose 176 H Lactic Acid Calcium Phosphorus Magnesium Ferritin Lactate Dehydrogenase C-Reactive Protein NT-Pro-B Natriuret Pep Total Protein Albumin 3.3 L Triglycerides Arterial Blood Glucose Ur Specific [place] Coronavirus (PCR) 03/10/21 03/10/21 03/10/21 05:22 10:27 15:25 WBC RBC Hgb Hct MCV MCHC RDW Plt Count Lymph % (Auto) [place] % (Auto) Lymph # (Auto) [place] # (Auto) Seg Neutrophils % Seg Neuts % (Manual) Lymphocytes % (Manual) Monocytes % (Manual) Nucleated RBC % Seg Neutrophils # Seg Neutrophils # Man Lymphocytes # (Manual) Monocytes # (Manual) PT INR APTT D-Dimer Heparin Anti-Xa Level ABG pH 7.488 H 7.488 H POC ABG pCO2 POC ABG pO2 ABG pO2 47.7 L 50.5 L ABG HCO3 ABG O2 Saturation 86.2 L 87.9 L ABG Base Excess ABG Hemoglobin ABG Oxyhemoglobin ABG Sodium ABG Potassium ABG Glucose Oxyhemoglobin 84.6 L 86.2 L Sodium Potassium Chloride Carbon Dioxide BUN Creatinine Glucose POC Glucose 155 H Lactic Acid Calcium Phosphorus Magnesium Ferritin Lactate Dehydrogenase C-Reactive Protein NT-Pro-B Natriuret Pep Total Protein Albumin Triglycerides Arterial Blood Glucose Ur Specific [place] Coronavirus (PCR) 03/10/21 03/10/21 03/11/21 18:10 18:55 00:07 WBC RBC Hgb Hct MCV MCHC RDW Plt Count Lymph % (Auto) [place] % (Auto) Lymph # (Auto) [place] # (Auto) Seg Neutrophils % Seg Neuts % (Manual) Lymphocytes % (Manual) Monocytes % (Manual) Nucleated RBC % Seg Neutrophils # Seg Neutrophils # Man Lymphocytes # (Manual) Monocytes # (Manual) PT INR APTT D-Dimer Heparin Anti-Xa Level ABG pH 7.343 L POC ABG pCO2 POC ABG pO2 ABG pO2 60.4 L ABG HCO3 27.9 H ABG O2 Saturation 88.7 L ABG Base Excess ABG Hemoglobin ABG Oxyhemoglobin ABG Sodium ABG Potassium ABG Glucose Oxyhemoglobin 86.9 L Sodium Potassium Chloride Carbon Dioxide BUN Creatinine Glucose POC Glucose 187 H 139 H Lactic Acid Calcium Phosphorus Magnesium Ferritin Lactate Dehydrogenase C-Reactive Protein NT-Pro-B Natriuret Pep Total Protein Albumin Triglycerides Arterial Blood Glucose Ur Specific [place] Coronavirus (PCR) 03/11/21 03/11/21 03/11/21 02:09 04:28 08:06 WBC RBC Hgb Hct MCV MCHC RDW Plt Count Lymph % (Auto) [place] % (Auto) Lymph # (Auto) [place] # (Auto) Seg Neutrophils % Seg Neuts % (Manual) Lymphocytes % (Manual) Monocytes % (Manual) Nucleated RBC % Seg Neutrophils # Seg Neutrophils # Man Lymphocytes # (Manual) Monocytes # (Manual) PT INR APTT D-Dimer Heparin Anti-Xa Level ABG pH 7.277 L POC ABG pCO2 55.9 H POC ABG pO2 54.4 L ABG pO2 ABG HCO3 ABG O2 Saturation ABG Base Excess ABG Hemoglobin ABG Oxyhemoglobin 83.0 L ABG Sodium ABG Potassium 4.8 H ABG Glucose 180 H Oxyhemoglobin Sodium Potassium Chloride Carbon Dioxide BUN 38 H Creatinine Glucose 249 H POC Glucose 278 H Lactic Acid Calcium Phosphorus Magnesium Ferritin Lactate Dehydrogenase C-Reactive Protein NT-Pro-B Natriuret Pep Total Protein Albumin 3.2 L Triglycerides Arterial Blood Glucose 180 H Ur Specific [place] Coronavirus (PCR) 03/11/21 03/11/21 03/11/21 11:29 15:06 15:48 WBC RBC Hgb Hct MCV MCHC RDW Plt Count Lymph % (Auto) [place] % (Auto) Lymph # (Auto) [place] # (Auto) Seg Neutrophils % Seg Neuts % (Manual) Lymphocytes % (Manual) Monocytes % (Manual) Nucleated RBC % Seg Neutrophils # Seg Neutrophils # Man Lymphocytes # (Manual) Monocytes # (Manual) PT INR APTT D-Dimer Heparin Anti-Xa Level ABG pH 7.260 L POC ABG pCO2 POC ABG pO2 ABG pO2 53.5 L ABG HCO3 29.5 H ABG O2 Saturation 84.0 L ABG Base Excess ABG Hemoglobin ABG Oxyhemoglobin ABG Sodium ABG Potassium ABG Glucose Oxyhemoglobin 82.3 L Sodium Potassium Chloride Carbon Dioxide BUN Creatinine Glucose POC Glucose 288 H 295 H Lactic Acid Calcium Phosphorus Magnesium Ferritin Lactate Dehydrogenase C-Reactive Protein NT-Pro-B Natriuret Pep Total Protein Albumin Triglycerides Arterial Blood Glucose Ur Specific [place] Coronavirus (PCR) 03/12/21 03/12/21 03/12/21 00:01 05:24 08:03 WBC RBC Hgb Hct MCV MCHC RDW Plt Count Lymph % (Auto) [place] % (Auto) Lymph # (Auto) [place] # (Auto) Seg Neutrophils % Seg Neuts % (Manual) Lymphocytes % (Manual) Monocytes % (Manual) Nucleated RBC % Seg Neutrophils # Seg Neutrophils # Man Lymphocytes # (Manual) Monocytes # (Manual) PT INR APTT D-Dimer Heparin Anti-Xa Level ABG pH POC ABG pCO2 POC ABG pO2 ABG pO2 ABG HCO3 ABG O2 Saturation ABG Base Excess ABG Hemoglobin ABG Oxyhemoglobin ABG Sodium ABG Potassium ABG Glucose Oxyhemoglobin Sodium 135 L Potassium Chloride Carbon Dioxide BUN 48 H Creatinine Glucose 358 H POC Glucose 304 H 310 H Lactic Acid Calcium Phosphorus Magnesium Ferritin Lactate Dehydrogenase C-Reactive Protein NT-Pro-B Natriuret Pep Total Protein 6.0 L Albumin 2.9 L Triglycerides Arterial Blood Glucose Ur Specific [place] Coronavirus (PCR) 03/12/21 03/12/21 03/12/21 08:03 10:43 11:31 WBC 14.6 H RBC Hgb Hct MCV MCHC RDW Plt Count Lymph % (Auto) [place] % (Auto) Lymph # (Auto) [place] # (Auto) Seg Neutrophils % Seg Neuts % (Manual) Lymphocytes % (Manual) Monocytes % (Manual) Nucleated RBC % Seg Neutrophils # Seg Neutrophils # Man Lymphocytes # (Manual) Monocytes # (Manual) PT INR APTT D-Dimer Heparin Anti-Xa Level ABG pH 7.248 L POC ABG pCO2 POC ABG pO2 ABG pO2 73.7 L ABG HCO3 32.0 H ABG O2 Saturation 93.9 L ABG Base Excess ABG Hemoglobin ABG Oxyhemoglobin ABG Sodium ABG Potassium ABG Glucose Oxyhemoglobin 92.1 L Sodium Potassium Chloride Carbon Dioxide BUN Creatinine Glucose POC Glucose 359 H Lactic Acid Calcium Phosphorus Magnesium Ferritin Lactate Dehydrogenase C-Reactive Protein NT-Pro-B Natriuret Pep Total Protein Albumin Triglycerides Arterial Blood Glucose Ur Specific [place] Coronavirus (PCR) 03/12/21 03/12/21 03/13/21 17:20 21:54 00:02 WBC RBC Hgb Hct MCV MCHC RDW Plt Count Lymph % (Auto) [place] % (Auto) Lymph # (Auto) [place] # (Auto) Seg Neutrophils % Seg Neuts % (Manual) Lymphocytes % (Manual) Monocytes % (Manual) Nucleated RBC % Seg Neutrophils # Seg Neutrophils # Man Lymphocytes # (Manual) Monocytes # (Manual) PT INR APTT D-Dimer Heparin Anti-Xa Level ABG pH 7.238 L POC ABG pCO2 71.9 H POC ABG pO2 53.6 L ABG pO2 ABG HCO3 ABG O2 Saturation ABG Base Excess ABG Hemoglobin ABG Oxyhemoglobin 84.8 L ABG Sodium 134.2 L ABG Potassium 4.9 H ABG Glucose 306 H Oxyhemoglobin Sodium Potassium Chloride Carbon Dioxide BUN Creatinine Glucose POC Glucose 374 H 308 H Lactic Acid Calcium Phosphorus Magnesium Ferritin Lactate Dehydrogenase C-Reactive Protein NT-Pro-B Natriuret Pep Total Protein Albumin Triglycerides Arterial Blood Glucose 306 H Ur Specific [place] Coronavirus (PCR) 03/13/21 03/13/21 03/13/21 05:22 05:44 05:44 WBC 13.9 H RBC Hgb Hct MCV MCHC RDW Plt Count Lymph % (Auto) [place] % (Auto) Lymph # (Auto) [place] # (Auto) Seg Neutrophils % Seg Neuts % (Manual) Lymphocytes % (Manual) Monocytes % (Manual) Nucleated RBC % Seg Neutrophils # Seg Neutrophils # Man Lymphocytes # (Manual) Monocytes # (Manual) PT INR APTT D-Dimer 3567.97 H Heparin Anti-Xa Level ABG pH POC ABG pCO2 POC ABG pO2 ABG pO2 ABG HCO3 ABG O2 Saturation ABG Base Excess ABG Hemoglobin ABG Oxyhemoglobin ABG Sodium ABG Potassium ABG Glucose Oxyhemoglobin Sodium Potassium Chloride Carbon Dioxide BUN Creatinine Glucose POC Glucose 316 H Lactic Acid Calcium Phosphorus Magnesium Ferritin Lactate Dehydrogenase C-Reactive Protein NT-Pro-B Natriuret Pep Total Protein Albumin Triglycerides Arterial Blood Glucose Ur Specific [place] Coronavirus (PCR) 03/13/21 03/13/21 03/13/21 05:44 05:44 11:15 WBC RBC Hgb Hct MCV MCHC RDW Plt Count Lymph % (Auto) [place] % (Auto) Lymph # (Auto) [place] # (Auto) Seg Neutrophils % Seg Neuts % (Manual) Lymphocytes % (Manual) Monocytes % (Manual) Nucleated RBC % Seg Neutrophils # Seg Neutrophils # Man Lymphocytes # (Manual) Monocytes # (Manual) PT INR APTT D-Dimer Heparin Anti-Xa Level ABG pH 7.310 L POC ABG pCO2 POC ABG pO2 ABG pO2 52.3 L ABG HCO3 34.1 H ABG O2 Saturation 86.8 L ABG Base Excess 5.5 H ABG Hemoglobin 13.8 L ABG Oxyhemoglobin ABG Sodium ABG Potassium ABG Glucose Oxyhemoglobin 85.1 L Sodium Potassium Chloride Carbon Dioxide BUN Creatinine Glucose POC Glucose Lactic Acid Calcium Phosphorus Magnesium Ferritin 858.7 H Lactate Dehydrogenase 348 H C-Reactive Protein 2.80 H NT-Pro-B Natriuret Pep Total Protein Albumin Triglycerides Arterial Blood Glucose Ur Specific [place] Coronavirus (PCR) 03/13/21 03/13/21 03/13/21 11:21 15:47 19:23 WBC RBC Hgb Hct MCV MCHC RDW Plt Count Lymph % (Auto) [place] % (Auto) Lymph # (Auto) [place] # (Auto) Seg Neutrophils % Seg Neuts % (Manual) Lymphocytes % (Manual) Monocytes % (Manual) Nucleated RBC % Seg Neutrophils # Seg Neutrophils # Man Lymphocytes # (Manual) Monocytes # (Manual) PT INR APTT D-Dimer Heparin Anti-Xa Level ABG pH POC ABG pCO2 POC ABG pO2 ABG pO2 ABG HCO3 ABG O2 Saturation ABG Base Excess ABG Hemoglobin ABG Oxyhemoglobin ABG Sodium ABG Potassium ABG Glucose Oxyhemoglobin Sodium 136 L Potassium 5.9 H Chloride Carbon Dioxide BUN 50 H Creatinine Glucose 397 H POC Glucose 322 H 317 H Lactic Acid Calcium Phosphorus Magnesium Ferritin Lactate Dehydrogenase C-Reactive Protein NT-Pro-B Natriuret Pep Total Protein Albumin Triglycerides Arterial Blood Glucose Ur Specific [place] Coronavirus (PCR) 03/13/21 03/14/21 03/14/21 23:46 05:32 05:50 WBC 11.6 H RBC Hgb Hct MCV MCHC RDW Plt Count Lymph % (Auto) [place] % (Auto) Lymph # (Auto) [place] # (Auto) Seg Neutrophils % Seg Neuts % (Manual) Lymphocytes % (Manual) Monocytes % (Manual) Nucleated RBC % Seg Neutrophils # Seg Neutrophils # Man Lymphocytes # (Manual) Monocytes # (Manual) PT INR APTT D-Dimer Heparin Anti-Xa Level ABG pH POC ABG pCO2 POC ABG pO2 ABG pO2 ABG HCO3 ABG O2 Saturation ABG Base Excess ABG Hemoglobin ABG Oxyhemoglobin ABG Sodium ABG Potassium ABG Glucose Oxyhemoglobin Sodium Potassium Chloride Carbon Dioxide BUN Creatinine Glucose POC Glucose 332 H 316 H Lactic Acid Calcium Phosphorus Magnesium Ferritin Lactate Dehydrogenase C-Reactive Protein NT-Pro-B Natriuret Pep Total Protein Albumin Triglycerides Arterial Blood Glucose Ur Specific [place] Coronavirus (PCR) 03/14/21 03/14/21 03/14/21 05:50 11:33 16:53 WBC RBC Hgb Hct MCV MCHC RDW Plt Count Lymph % (Auto) [place] % (Auto) Lymph # (Auto) [place] # (Auto) Seg Neutrophils % Seg Neuts % (Manual) Lymphocytes % (Manual) Monocytes % (Manual) Nucleated RBC % Seg Neutrophils # Seg Neutrophils # Man Lymphocytes # (Manual) Monocytes # (Manual) PT INR APTT D-Dimer Heparin Anti-Xa Level ABG pH POC ABG pCO2 POC ABG pO2 ABG pO2 ABG HCO3 ABG O2 Saturation ABG Base Excess ABG Hemoglobin ABG Oxyhemoglobin ABG Sodium ABG Potassium ABG Glucose Oxyhemoglobin Sodium Potassium 5.9 H Chloride Carbon Dioxide 31 H BUN 48 H Creatinine Glucose 380 H POC Glucose 315 H 235 H Lactic Acid Calcium Phosphorus Magnesium 3.40 H Ferritin Lactate Dehydrogenase C-Reactive Protein NT-Pro-B Natriuret Pep Total Protein Albumin Triglycerides Arterial Blood Glucose Ur Specific [place] Coronavirus (PCR) 03/14/21 03/14/21 03/15/21 18:34 23:27 01:22 WBC RBC Hgb Hct 46.3 H MCV MCHC RDW Plt Count Lymph % (Auto) [place] % (Auto) Lymph # (Auto) [place] # (Auto) Seg Neutrophils % Seg Neuts % (Manual) Lymphocytes % (Manual) Monocytes % (Manual) Nucleated RBC % Seg Neutrophils # Seg Neutrophils # Man Lymphocytes # (Manual) Monocytes # (Manual) PT INR APTT D-Dimer Heparin Anti-Xa Level ABG pH POC ABG pCO2 POC ABG pO2 ABG pO2 ABG HCO3 ABG O2 Saturation ABG Base Excess ABG Hemoglobin ABG Oxyhemoglobin ABG Sodium ABG Potassium ABG Glucose Oxyhemoglobin Sodium 146 H Potassium Chloride Carbon Dioxide 34 H BUN 49 H Creatinine Glucose 285 H POC Glucose 203 H Lactic Acid Calcium Phosphorus Magnesium Ferritin Lactate Dehydrogenase C-Reactive Protein NT-Pro-B Natriuret Pep Total Protein Albumin Triglycerides Arterial Blood Glucose Ur Specific [place] Coronavirus (PCR) 03/15/21 03/15/21 03/15/21 04:00 06:06 06:06 WBC RBC Hgb Hct MCV MCHC RDW Plt Count Lymph % (Auto) [place] % (Auto) Lymph # (Auto) [place] # (Auto) Seg Neutrophils % Seg Neuts % (Manual) Lymphocytes % (Manual) Monocytes % (Manual) Nucleated RBC % Seg Neutrophils # Seg Neutrophils # Man Lymphocytes # (Manual) Monocytes # (Manual) PT INR APTT D-Dimer 1781.79 H Heparin Anti-Xa Level ABG pH POC ABG pCO2 POC ABG pO2 ABG pO2 ABG HCO3 ABG O2 Saturation ABG Base Excess ABG Hemoglobin ABG Oxyhemoglobin ABG Sodium ABG Potassium ABG Glucose Oxyhemoglobin Sodium 148 H Potassium 5.7 H D Chloride 108.0 H Carbon Dioxide 31 H BUN 46 H Creatinine Glucose 139 H POC Glucose Lactic Acid Calcium Phosphorus 4.80 H D Magnesium 3.00 H Ferritin 976.4 H Lactate Dehydrogenase 630 H C-Reactive Protein NT-Pro-B Natriuret Pep Total Protein Albumin Triglycerides Arterial Blood Glucose Ur Specific [place] Coronavirus (PCR) 03/15/21 03/15/21 03/15/21 11:56 14:05 17:09 WBC RBC Hgb Hct MCV MCHC RDW Plt Count Lymph % (Auto) [place] % (Auto) Lymph # (Auto) [place] # (Auto) Seg Neutrophils % Seg Neuts % (Manual) Lymphocytes % (Manual) Monocytes % (Manual) Nucleated RBC % Seg Neutrophils # Seg Neutrophils # Man Lymphocytes # (Manual) Monocytes # (Manual) PT INR APTT D-Dimer Heparin Anti-Xa Level ABG pH POC ABG pCO2 POC ABG pO2 ABG pO2 52.1 L ABG HCO3 36.6 H ABG O2 Saturation 87.6 L ABG Base Excess 9.5 H ABG Hemoglobin ABG Oxyhemoglobin ABG Sodium ABG Potassium ABG Glucose Oxyhemoglobin 85.7 L Sodium Potassium Chloride Carbon Dioxide BUN Creatinine Glucose POC Glucose 219 H 263 H Lactic Acid Calcium Phosphorus Magnesium Ferritin Lactate Dehydrogenase C-Reactive Protein NT-Pro-B Natriuret Pep Total Protein Albumin Triglycerides Arterial Blood Glucose Ur Specific [place] Coronavirus (PCR) 03/16/21 03/16/21 03/16/21 00:32 04:11 04:11 WBC 11.9 H RBC Hgb Hct MCV MCHC 30 L RDW Plt Count Lymph % (Auto) [place] % (Auto) Lymph # (Auto) [place] # (Auto) Seg Neutrophils % Seg Neuts % (Manual) Lymphocytes % (Manual) Monocytes % (Manual) Nucleated RBC % Seg Neutrophils # Seg Neutrophils # Man Lymphocytes # (Manual) Monocytes # (Manual) PT INR APTT D-Dimer Heparin Anti-Xa Level ABG pH POC ABG pCO2 POC ABG pO2 ABG pO2 ABG HCO3 ABG O2 Saturation ABG Base Excess ABG Hemoglobin ABG Oxyhemoglobin ABG Sodium ABG Potassium ABG Glucose Oxyhemoglobin Sodium 151 H Potassium Chloride Carbon Dioxide 35 H BUN 48 H Creatinine Glucose 152 H POC Glucose 165 H Lactic Acid Calcium Phosphorus Magnesium Ferritin Lactate Dehydrogenase C-Reactive Protein NT-Pro-B Natriuret Pep Total Protein Albumin Triglycerides Arterial Blood Glucose Ur Specific [place] Coronavirus (PCR) 03/16/21 03/16/21 03/16/21 04:11 05:26 11:35 WBC RBC Hgb Hct MCV MCHC RDW Plt Count Lymph % (Auto) [place] % (Auto) Lymph # (Auto) [place] # (Auto) Seg Neutrophils % Seg Neuts % (Manual) Lymphocytes % (Manual) Monocytes % (Manual) Nucleated RBC % Seg Neutrophils # Seg Neutrophils # Man Lymphocytes # (Manual) Monocytes # (Manual) PT INR APTT D-Dimer Heparin Anti-Xa Level ABG pH POC ABG pCO2 POC ABG pO2 ABG pO2 ABG HCO3 ABG O2 Saturation ABG Base Excess ABG Hemoglobin ABG Oxyhemoglobin ABG Sodium ABG Potassium ABG Glucose Oxyhemoglobin Sodium Potassium Chloride Carbon Dioxide BUN Creatinine Glucose POC Glucose 162 H 187 H Lactic Acid Calcium Phosphorus Magnesium Ferritin Lactate Dehydrogenase C-Reactive Protein NT-Pro-B Natriuret Pep Total Protein Albumin Triglycerides 267 H Arterial Blood Glucose Ur Specific [place] Coronavirus (PCR) 03/16/21 03/16/21 03/16/21 17:29 22:25 23:22 WBC RBC Hgb Hct MCV MCHC RDW Plt Count Lymph % (Auto) [place] % (Auto) Lymph # (Auto) [place] # (Auto) Seg Neutrophils % Seg Neuts % (Manual) Lymphocytes % (Manual) Monocytes % (Manual) Nucleated RBC % Seg Neutrophils # Seg Neutrophils # Man Lymphocytes # (Manual) Monocytes # (Manual) PT INR APTT D-Dimer Heparin Anti-Xa Level ABG pH POC ABG pCO2 POC ABG pO2 ABG pO2 ABG HCO3 ABG O2 Saturation ABG Base Excess ABG Hemoglobin ABG Oxyhemoglobin ABG Sodium ABG Potassium ABG Glucose Oxyhemoglobin Sodium Potassium Chloride Carbon Dioxide BUN Creatinine Glucose POC Glucose 237 H 165 H 189 H Lactic Acid Calcium Phosphorus Magnesium Ferritin Lactate Dehydrogenase C-Reactive Protein NT-Pro-B Natriuret Pep Total Protein Albumin Triglycerides Arterial Blood Glucose Ur Specific [place] Coronavirus (PCR) 03/17/21 03/17/21 03/17/21 04:40 04:40 04:40 WBC 14.1 H RBC Hgb Hct MCV MCHC RDW 15.3 H Plt Count Lymph % (Auto) 12.6 L [place] % (Auto) 11.3 H Lymph # (Auto) [place] # (Auto) 1.6 H Seg Neutrophils % 74.9 H Seg Neuts % (Manual) Lymphocytes % (Manual) Monocytes % (Manual) Nucleated RBC % Seg Neutrophils # 10.5 H Seg Neutrophils # Man Lymphocytes # (Manual) Monocytes # (Manual) PT INR APTT D-Dimer 1359.12 H Heparin Anti-Xa Level ABG pH POC ABG pCO2 POC ABG pO2 ABG pO2 ABG HCO3 ABG O2 Saturation ABG Base Excess ABG Hemoglobin ABG Oxyhemoglobin ABG Sodium ABG Potassium ABG Glucose Oxyhemoglobin Sodium 148 H Potassium Chloride 107.5 H Carbon Dioxide 33 H BUN 42 H Creatinine Glucose 183 H POC Glucose Lactic Acid Calcium Phosphorus Magnesium 2.70 H Ferritin Lactate Dehydrogenase C-Reactive Protein NT-Pro-B Natriuret Pep Total Protein Albumin Triglycerides Arterial Blood Glucose Ur Specific [place] Coronavirus (PCR) 03/17/21 03/17/21 03/17/21 05:53 11:05 11:51 WBC RBC Hgb Hct MCV MCHC RDW Plt Count Lymph % (Auto) [place] % (Auto) Lymph # (Auto) [place] # (Auto) Seg Neutrophils % Seg Neuts % (Manual) Lymphocytes % (Manual) Monocytes % (Manual) Nucleated RBC % Seg Neutrophils # Seg Neutrophils # Man Lymphocytes # (Manual) Monocytes # (Manual) PT INR APTT D-Dimer Heparin Anti-Xa Level ABG pH POC ABG pCO2 POC ABG pO2 ABG pO2 ABG HCO3 35.7 H ABG O2 Saturation ABG Base Excess 8.7 H ABG Hemoglobin ABG Oxyhemoglobin ABG Sodium ABG Potassium ABG Glucose Oxyhemoglobin 94.2 L Sodium Potassium Chloride Carbon Dioxide BUN Creatinine Glucose POC Glucose 176 H 197 H Lactic Acid Calcium Phosphorus Magnesium Ferritin Lactate Dehydrogenase C-Reactive Protein NT-Pro-B Natriuret Pep Total Protein Albumin Triglycerides Arterial Blood Glucose Ur Specific [place] Coronavirus (PCR) 03/17/21 03/17/21 03/17/21 16:54 21:10 23:33 WBC RBC Hgb Hct MCV MCHC RDW Plt Count Lymph % (Auto) [place] % (Auto) Lymph # (Auto) [place] # (Auto) Seg Neutrophils % Seg Neuts % (Manual) Lymphocytes % (Manual) Monocytes % (Manual) Nucleated RBC % Seg Neutrophils # Seg Neutrophils # Man Lymphocytes # (Manual) Monocytes # (Manual) PT INR APTT D-Dimer Heparin Anti-Xa Level ABG pH POC ABG pCO2 POC ABG pO2 ABG pO2 ABG HCO3 ABG O2 Saturation ABG Base Excess ABG Hemoglobin ABG Oxyhemoglobin ABG Sodium ABG Potassium ABG Glucose Oxyhemoglobin Sodium Potassium Chloride Carbon Dioxide BUN Creatinine Glucose POC Glucose 135 H 160 H 138 H Lactic Acid Calcium Phosphorus Magnesium Ferritin Lactate Dehydrogenase C-Reactive Protein NT-Pro-B Natriuret Pep Total Protein Albumin Triglycerides Arterial Blood Glucose Ur Specific [place] Coronavirus (PCR) 03/18/21 03/18/21 03/18/21 04:18 04:50 05:43 WBC RBC Hgb Hct MCV MCHC RDW Plt Count Lymph % (Auto) [place] % (Auto) Lymph # (Auto) [place] # (Auto) Seg Neutrophils % Seg Neuts % (Manual) Lymphocytes % (Manual) Monocytes % (Manual) Nucleated RBC % Seg Neutrophils # Seg Neutrophils # Man Lymphocytes # (Manual) Monocytes # (Manual) PT INR APTT D-Dimer Heparin Anti-Xa Level ABG pH POC ABG pCO2 POC ABG pO2 ABG pO2 59.8 L ABG HCO3 36.5 H ABG O2 Saturation 90.7 L ABG Base Excess 9.4 H ABG Hemoglobin 12.0 L ABG Oxyhemoglobin ABG Sodium ABG Potassium ABG Glucose Oxyhemoglobin 88.9 L Sodium Potassium Chloride 107.2 H Carbon Dioxide 34 H BUN 38 H Creatinine 0.7 L Glucose 136 H POC Glucose 128 H Lactic Acid Calcium Phosphorus Magnesium Ferritin Lactate Dehydrogenase C-Reactive Protein NT-Pro-B Natriuret Pep Total Protein Albumin Triglycerides Arterial Blood Glucose Ur Specific [place] Coronavirus (PCR) 03/18/21 03/18/21 03/18/21 11:20 17:35 23:35 WBC RBC Hgb Hct MCV MCHC RDW Plt Count Lymph % (Auto) [place] % (Auto) Lymph # (Auto) [place] # (Auto) Seg Neutrophils % Seg Neuts % (Manual) Lymphocytes % (Manual) Monocytes % (Manual) Nucleated RBC % Seg Neutrophils # Seg Neutrophils # Man Lymphocytes # (Manual) Monocytes # (Manual) PT INR APTT D-Dimer Heparin Anti-Xa Level ABG pH POC ABG pCO2 POC ABG pO2 ABG pO2 70.7 L ABG HCO3 33.6 H ABG O2 Saturation ABG Base Excess 8.0 H ABG Hemoglobin ABG Oxyhemoglobin ABG Sodium ABG Potassium ABG Glucose Oxyhemoglobin 93.7 L Sodium Potassium Chloride Carbon Dioxide BUN Creatinine Glucose POC Glucose 189 H 144 H Lactic Acid Calcium Phosphorus Magnesium Ferritin Lactate Dehydrogenase C-Reactive Protein NT-Pro-B Natriuret Pep Total Protein Albumin Triglycerides Arterial Blood Glucose Ur Specific [place] Coronavirus (PCR) 03/19/21 03/19/21 03/19/21 02:35 04:20 04:20 WBC 14.0 H RBC Hgb Hct MCV MCHC RDW Plt Count Lymph % (Auto) [place] % (Auto) Lymph # (Auto) [place] # (Auto) Seg Neutrophils % Seg Neuts % (Manual) Lymphocytes % (Manual) Monocytes % (Manual) Nucleated RBC % Seg Neutrophils # Seg Neutrophils # Man Lymphocytes # (Manual) Monocytes # (Manual) PT INR APTT D-Dimer Heparin Anti-Xa Level ABG pH POC ABG pCO2 POC ABG pO2 ABG pO2 ABG HCO3 32.0 H ABG O2 Saturation ABG Base Excess 5.2 H ABG Hemoglobin 13.6 L ABG Oxyhemoglobin ABG Sodium ABG Potassium ABG Glucose Oxyhemoglobin 94.6 L Sodium 146 H Potassium Chloride 109.3 H Carbon Dioxide BUN 36 H Creatinine Glucose 203 H POC Glucose Lactic Acid Calcium Phosphorus Magnesium Ferritin Lactate Dehydrogenase C-Reactive Protein NT-Pro-B Natriuret Pep Total Protein Albumin Triglycerides 254 H Arterial Blood Glucose Ur Specific [place] Coronavirus (PCR) 03/19/21 03/19/21 03/19/21 05:45 11:36 23:51 WBC RBC Hgb Hct MCV MCHC RDW Plt Count Lymph % (Auto) [place] % (Auto) Lymph # (Auto) [place] # (Auto) Seg Neutrophils % Seg Neuts % (Manual) Lymphocytes % (Manual) Monocytes % (Manual) Nucleated RBC % Seg Neutrophils # Seg Neutrophils # Man Lymphocytes # (Manual) Monocytes # (Manual) PT INR APTT D-Dimer Heparin Anti-Xa Level ABG pH POC ABG pCO2 POC ABG pO2 ABG pO2 ABG HCO3 ABG O2 Saturation ABG Base Excess ABG Hemoglobin ABG Oxyhemoglobin ABG Sodium ABG Potassium ABG Glucose Oxyhemoglobin Sodium Potassium Chloride Carbon Dioxide BUN Creatinine Glucose POC Glucose 164 H 172 H 140 H Lactic Acid Calcium Phosphorus Magnesium Ferritin Lactate Dehydrogenase C-Reactive Protein NT-Pro-B Natriuret Pep Total Protein Albumin Triglycerides Arterial Blood Glucose Ur Specific [place] Coronavirus (PCR) 03/20/21 03/20/21 03/20/21 03:29 04:45 04:45 WBC RBC Hgb Hct MCV 95 H MCHC RDW 15.7 H Plt Count Lymph % (Auto) [place] % (Auto) Lymph # (Auto) [place] # (Auto) Seg Neutrophils % Seg Neuts % (Manual) Lymphocytes % (Manual) Monocytes % (Manual) Nucleated RBC % Seg Neutrophils # Seg Neutrophils # Man Lymphocytes # (Manual) Monocytes # (Manual) PT INR APTT D-Dimer Heparin Anti-Xa Level ABG pH 7.349 L POC ABG pCO2 POC ABG pO2 ABG pO2 ABG HCO3 33.7 H ABG O2 Saturation ABG Base Excess 6.4 H ABG Hemoglobin 11.8 L ABG Oxyhemoglobin ABG Sodium ABG Potassium ABG Glucose Oxyhemoglobin 93.9 L Sodium 146 H Potassium 5.5 H Chloride 111.1 H Carbon Dioxide BUN 34 H Creatinine 0.7 L Glucose 145 H POC Glucose Lactic Acid Calcium Phosphorus Magnesium 2.50 H Ferritin Lactate Dehydrogenase C-Reactive Protein NT-Pro-B Natriuret Pep Total Protein Albumin Triglycerides Arterial Blood Glucose Ur Specific [place] Coronavirus (PCR) 03/20/21 03/20/21 03/20/21 05:41 09:08 11:54 WBC RBC Hgb Hct MCV MCHC RDW Plt Count Lymph % (Auto) [place] % (Auto) Lymph # (Auto) [place] # (Auto) Seg Neutrophils % Seg Neuts % (Manual) Lymphocytes % (Manual) Monocytes % (Manual) Nucleated RBC % Seg Neutrophils # Seg Neutrophils # Man Lymphocytes # (Manual) Monocytes # (Manual) PT INR APTT D-Dimer Heparin Anti-Xa Level ABG pH POC ABG pCO2 POC ABG pO2 ABG pO2 ABG HCO3 ABG O2 Saturation ABG Base Excess ABG Hemoglobin ABG Oxyhemoglobin ABG Sodium ABG Potassium ABG Glucose Oxyhemoglobin Sodium Potassium Chloride Carbon Dioxide BUN Creatinine Glucose POC Glucose 108 H 132 H 162 H Lactic Acid Calcium Phosphorus Magnesium Ferritin Lactate Dehydrogenase C-Reactive Protein NT-Pro-B Natriuret Pep Total Protein Albumin Triglycerides Arterial Blood Glucose Ur Specific [place] Coronavirus (PCR) 03/20/21 03/21/21 03/21/21 17:28 00:31 04:44 WBC RBC Hgb Hct MCV MCHC RDW Plt Count Lymph % (Auto) [place] % (Auto) Lymph # (Auto) [place] # (Auto) Seg Neutrophils % Seg Neuts % (Manual) Lymphocytes % (Manual) Monocytes % (Manual) Nucleated RBC % Seg Neutrophils # Seg Neutrophils # Man Lymphocytes # (Manual) Monocytes # (Manual) PT INR APTT D-Dimer Heparin Anti-Xa Level ABG pH POC ABG pCO2 POC ABG pO2 ABG pO2 ABG HCO3 ABG O2 Saturation ABG Base Excess ABG Hemoglobin ABG Oxyhemoglobin ABG Sodium ABG Potassium ABG Glucose Oxyhemoglobin Sodium Potassium Chloride 108.3 H Carbon Dioxide BUN 30 H Creatinine 0.7 L Glucose POC Glucose 160 H 122 H Lactic Acid Calcium Phosphorus Magnesium Ferritin Lactate Dehydrogenase C-Reactive Protein NT-Pro-B Natriuret Pep Total Protein Albumin Triglycerides Arterial Blood Glucose Ur Specific [place] Coronavirus (PCR) 03/21/21 03/21/21 03/21/21 09:18 10:09 13:20 WBC RBC Hgb Hct MCV MCHC RDW Plt Count Lymph % (Auto) [place] % (Auto) Lymph # (Auto) [place] # (Auto) Seg Neutrophils % Seg Neuts % (Manual) Lymphocytes % (Manual) Monocytes % (Manual) Nucleated RBC % Seg Neutrophils # Seg Neutrophils # Man Lymphocytes # (Manual) Monocytes # (Manual) PT INR APTT D-Dimer Heparin Anti-Xa Level ABG pH POC ABG pCO2 POC ABG pO2 ABG pO2 60.7 L ABG HCO3 30.6 H ABG O2 Saturation 93.6 L ABG Base Excess 5.3 H ABG Hemoglobin ABG Oxyhemoglobin ABG Sodium ABG Potassium ABG Glucose Oxyhemoglobin 91.7 L Sodium Potassium Chloride Carbon Dioxide BUN Creatinine Glucose POC Glucose 169 H 122 H Lactic Acid Calcium Phosphorus Magnesium Ferritin Lactate Dehydrogenase C-Reactive Protein NT-Pro-B Natriuret Pep Total Protein Albumin Triglycerides Arterial Blood Glucose Ur Specific [place] Coronavirus (PCR) 03/21/21 03/21/21 03/21/21 17:25 22:41 23:52 WBC RBC Hgb Hct MCV MCHC RDW Plt Count Lymph % (Auto) [place] % (Auto) Lymph # (Auto) [place] # (Auto) Seg Neutrophils % Seg Neuts % (Manual) Lymphocytes % (Manual) Monocytes % (Manual) Nucleated RBC % Seg Neutrophils # Seg Neutrophils # Man Lymphocytes # (Manual) Monocytes # (Manual) PT INR APTT D-Dimer Heparin Anti-Xa Level ABG pH POC ABG pCO2 POC ABG pO2 ABG pO2 ABG HCO3 ABG O2 Saturation ABG Base Excess ABG Hemoglobin ABG Oxyhemoglobin ABG Sodium ABG Potassium ABG Glucose Oxyhemoglobin Sodium Potassium Chloride Carbon Dioxide BUN Creatinine Glucose POC Glucose 121 H 139 H 140 H Lactic Acid Calcium Phosphorus Magnesium Ferritin Lactate Dehydrogenase C-Reactive Protein NT-Pro-B Natriuret Pep Total Protein Albumin Triglycerides Arterial Blood Glucose Ur Specific [place] Coronavirus (PCR) 03/22/21 03/22/21 03/22/21 05:58 07:26 07:26 WBC RBC Hgb Hct MCV MCHC 31 L RDW 16.1 H Plt Count Lymph % (Auto) [place] % (Auto) Lymph # (Auto) [place] # (Auto) Seg Neutrophils % Seg Neuts % (Manual) Lymphocytes % (Manual) Monocytes % (Manual) Nucleated RBC % Seg Neutrophils # Seg Neutrophils # Man Lymphocytes # (Manual) Monocytes # (Manual) PT INR APTT D-Dimer Heparin Anti-Xa Level ABG pH POC ABG pCO2 POC ABG pO2 ABG pO2 ABG HCO3 ABG O2 Saturation ABG Base Excess ABG Hemoglobin ABG Oxyhemoglobin ABG Sodium ABG Potassium ABG Glucose Oxyhemoglobin Sodium Potassium Chloride 108.5 H Carbon Dioxide BUN 44 H Creatinine Glucose 120 H POC Glucose 131 H Lactic Acid Calcium Phosphorus 5.80 H Magnesium 2.80 H Ferritin Lactate Dehydrogenase C-Reactive Protein NT-Pro-B Natriuret Pep Total Protein Albumin Triglycerides 305 H Arterial Blood Glucose Ur Specific [place] Coronavirus (PCR) 03/22/21 03/22/21 03/22/21 09:38 11:15 16:01 WBC RBC Hgb Hct MCV MCHC RDW Plt Count Lymph % (Auto) [place] % (Auto) Lymph # (Auto) [place] # (Auto) Seg Neutrophils % Seg Neuts % (Manual) Lymphocytes % (Manual) Monocytes % (Manual) Nucleated RBC % Seg Neutrophils # Seg Neutrophils # Man Lymphocytes # (Manual) Monocytes # (Manual) PT INR APTT D-Dimer Heparin Anti-Xa Level ABG pH POC ABG pCO2 POC ABG pO2 ABG pO2 70.0 L ABG HCO3 30.0 H ABG O2 Saturation 94.6 L ABG Base Excess 3.6 H ABG Hemoglobin 13.5 L ABG Oxyhemoglobin ABG Sodium ABG Potassium ABG Glucose Oxyhemoglobin 92.5 L Sodium Potassium Chloride Carbon Dioxide BUN Creatinine Glucose POC Glucose 186 H 148 H Lactic Acid Calcium Phosphorus Magnesium Ferritin Lactate Dehydrogenase C-Reactive Protein NT-Pro-B Natriuret Pep Total Protein Albumin Triglycerides Arterial Blood Glucose Ur Specific [place] Coronavirus (PCR) 03/22/21 03/22/21 03/23/21 21:13 23:48 07:04 WBC 11.7 H RBC Hgb Hct MCV 95 H MCHC RDW 16.1 H Plt Count Lymph % (Auto) [place] % (Auto) Lymph # (Auto) [place] # (Auto) Seg Neutrophils % Seg Neuts % (Manual) Lymphocytes % (Manual) Monocytes % (Manual) Nucleated RBC % Seg Neutrophils # Seg Neutrophils # Man Lymphocytes # (Manual) Monocytes # (Manual) PT INR APTT D-Dimer Heparin Anti-Xa Level ABG pH POC ABG pCO2 POC ABG pO2 ABG pO2 ABG HCO3 ABG O2 Saturation ABG Base Excess ABG Hemoglobin ABG Oxyhemoglobin ABG Sodium ABG Potassium ABG Glucose Oxyhemoglobin Sodium Potassium Chloride Carbon Dioxide BUN Creatinine Glucose POC Glucose 121 H 114 H Lactic Acid Calcium Phosphorus Magnesium Ferritin Lactate Dehydrogenase C-Reactive Protein NT-Pro-B Natriuret Pep Total Protein Albumin Triglycerides Arterial Blood Glucose Ur Specific [place] Coronavirus (PCR) 03/23/21 03/23/21 03/23/21 07:04 08:35 11:19 WBC RBC Hgb Hct MCV MCHC RDW Plt Count Lymph % (Auto) [place] % (Auto) Lymph # (Auto) [place] # (Auto) Seg Neutrophils % Seg Neuts % (Manual) Lymphocytes % (Manual) Monocytes % (Manual) Nucleated RBC % Seg Neutrophils # Seg Neutrophils # Man Lymphocytes # (Manual) Monocytes # (Manual) PT INR APTT D-Dimer Heparin Anti-Xa Level ABG pH 7.345 L POC ABG pCO2 POC ABG pO2 ABG pO2 167.9 H ABG HCO3 32.2 H ABG O2 Saturation ABG Base Excess 4.8 H ABG Hemoglobin 13.4 L ABG Oxyhemoglobin ABG Sodium ABG Potassium ABG Glucose Oxyhemoglobin Sodium 148 H Potassium Chloride 111.3 H Carbon Dioxide 31 H BUN 31 H Creatinine Glucose 131 H POC Glucose 165 H Lactic Acid Calcium Phosphorus Magnesium 2.50 H Ferritin Lactate Dehydrogenase C-Reactive Protein NT-Pro-B Natriuret Pep Total Protein Albumin Triglycerides Arterial Blood Glucose Ur Specific [place] Coronavirus (PCR) 03/23/21 03/23/21 03/24/21 16:48 20:52 00:07 WBC RBC Hgb Hct MCV MCHC RDW Plt Count Lymph % (Auto) [place] % (Auto) Lymph # (Auto) [place] # (Auto) Seg Neutrophils % Seg Neuts % (Manual) Lymphocytes % (Manual) Monocytes % (Manual) Nucleated RBC % Seg Neutrophils # Seg Neutrophils # Man Lymphocytes # (Manual) Monocytes # (Manual) PT INR APTT D-Dimer Heparin Anti-Xa Level ABG pH POC ABG pCO2 POC ABG pO2 ABG pO2 ABG HCO3 ABG O2 Saturation ABG Base Excess ABG Hemoglobin ABG Oxyhemoglobin ABG Sodium ABG Potassium ABG Glucose Oxyhemoglobin Sodium Potassium Chloride Carbon Dioxide BUN Creatinine Glucose POC Glucose 160 H 127 H 147 H Lactic Acid Calcium Phosphorus Magnesium Ferritin Lactate Dehydrogenase C-Reactive Protein NT-Pro-B Natriuret Pep Total Protein Albumin Triglycerides Arterial Blood Glucose Ur Specific [place] Coronavirus (PCR) 03/24/21 03/24/21 03/24/21 04:34 04:34 05:20 WBC 13.3 H RBC Hgb Hct MCV MCHC 31 L RDW 16.1 H Plt Count Lymph % (Auto) [place] % (Auto) Lymph # (Auto) [place] # (Auto) Seg Neutrophils % Seg Neuts % (Manual) Lymphocytes % (Manual) Monocytes % (Manual) Nucleated RBC % Seg Neutrophils # Seg Neutrophils # Man Lymphocytes # (Manual) Monocytes # (Manual) PT INR APTT D-Dimer Heparin Anti-Xa Level ABG pH POC ABG pCO2 POC ABG pO2 ABG pO2 ABG HCO3 ABG O2 Saturation ABG Base Excess ABG Hemoglobin ABG Oxyhemoglobin ABG Sodium ABG Potassium ABG Glucose Oxyhemoglobin Sodium Potassium 5.2 H Chloride Carbon Dioxide BUN 28 H Creatinine 0.7 L Glucose 152 H POC Glucose 141 H Lactic Acid Calcium Phosphorus Magnesium Ferritin Lactate Dehydrogenase C-Reactive Protein NT-Pro-B Natriuret Pep Total Protein Albumin Triglycerides Arterial Blood Glucose Ur Specific [place] Coronavirus (PCR) 03/24/21 03/24/21 03/24/21 09:40 11:38 16:45 WBC RBC Hgb Hct MCV MCHC RDW Plt Count Lymph % (Auto) [place] % (Auto) Lymph # (Auto) [place] # (Auto) Seg Neutrophils % Seg Neuts % (Manual) Lymphocytes % (Manual) Monocytes % (Manual) Nucleated RBC % Seg Neutrophils # Seg Neutrophils # Man Lymphocytes # (Manual) Monocytes # (Manual) PT INR APTT D-Dimer Heparin Anti-Xa Level ABG pH POC ABG pCO2 POC ABG pO2 ABG pO2 ABG HCO3 ABG O2 Saturation ABG Base Excess ABG Hemoglobin ABG Oxyhemoglobin ABG Sodium ABG Potassium ABG Glucose Oxyhemoglobin Sodium Potassium Chloride Carbon Dioxide BUN Creatinine Glucose POC Glucose 126 H 136 H 118 H Lactic Acid Calcium Phosphorus Magnesium Ferritin Lactate Dehydrogenase C-Reactive Protein NT-Pro-B Natriuret Pep Total Protein Albumin Triglycerides Arterial Blood Glucose Ur Specific [place] Coronavirus (PCR) 03/24/21 03/24/21 03/25/21 21:03 23:49 04:32 WBC RBC Hgb Hct MCV MCHC RDW 16.1 H Plt Count 121 L Lymph % (Auto) [place] % (Auto) Lymph # (Auto) [place] # (Auto) Seg Neutrophils % Seg Neuts % (Manual) Lymphocytes % (Manual) Monocytes % (Manual) Nucleated RBC % Seg Neutrophils # Seg Neutrophils # Man Lymphocytes # (Manual) Monocytes # (Manual) PT INR APTT D-Dimer Heparin Anti-Xa Level ABG pH POC ABG pCO2 POC ABG pO2 ABG pO2 ABG HCO3 ABG O2 Saturation ABG Base Excess ABG Hemoglobin ABG Oxyhemoglobin ABG Sodium ABG Potassium ABG Glucose Oxyhemoglobin Sodium Potassium Chloride Carbon Dioxide BUN Creatinine Glucose POC Glucose 116 H 125 H Lactic Acid Calcium Phosphorus Magnesium Ferritin Lactate Dehydrogenase C-Reactive Protein NT-Pro-B Natriuret Pep Total Protein Albumin Triglycerides Arterial Blood Glucose Ur Specific [place] Coronavirus (PCR) 03/25/21 03/25/21 03/25/21 04:32 05:21 09:29 WBC RBC Hgb Hct MCV MCHC RDW Plt Count Lymph % (Auto) [place] % (Auto) Lymph # (Auto) [place] # (Auto) Seg Neutrophils % Seg Neuts % (Manual) Lymphocytes % (Manual) Monocytes % (Manual) Nucleated RBC % Seg Neutrophils # Seg Neutrophils # Man Lymphocytes # (Manual) Monocytes # (Manual) PT INR APTT D-Dimer Heparin Anti-Xa Level ABG pH POC ABG pCO2 POC ABG pO2 ABG pO2 ABG HCO3 ABG O2 Saturation ABG Base Excess ABG Hemoglobin ABG Oxyhemoglobin ABG Sodium ABG Potassium ABG Glucose Oxyhemoglobin Sodium 135 L D Potassium Chloride Carbon Dioxide BUN 25 H Creatinine 0.7 L Glucose 168 H POC Glucose 149 H 115 H Lactic Acid Calcium Phosphorus Magnesium Ferritin Lactate Dehydrogenase C-Reactive Protein NT-Pro-B Natriuret Pep Total Protein Albumin Triglycerides Arterial Blood Glucose Ur Specific [place] Coronavirus (PCR) 03/25/21 03/25/21 03/25/21 12:26 12:35 23:53 WBC RBC Hgb Hct MCV MCHC RDW Plt Count Lymph % (Auto) [place] % (Auto) Lymph # (Auto) [place] # (Auto) Seg Neutrophils % Seg Neuts % (Manual) Lymphocytes % (Manual) Monocytes % (Manual) Nucleated RBC % Seg Neutrophils # Seg Neutrophils # Man Lymphocytes # (Manual) Monocytes # (Manual) PT INR APTT D-Dimer Heparin Anti-Xa Level ABG pH POC ABG pCO2 POC ABG pO2 ABG pO2 100.5 H ABG HCO3 33.6 H ABG O2 Saturation ABG Base Excess 6.4 H ABG Hemoglobin 12.0 L ABG Oxyhemoglobin ABG Sodium ABG Potassium ABG Glucose Oxyhemoglobin Sodium Potassium Chloride Carbon Dioxide BUN Creatinine Glucose POC Glucose 108 H 137 H Lactic Acid Calcium Phosphorus Magnesium Ferritin Lactate Dehydrogenase C-Reactive Protein NT-Pro-B Natriuret Pep Total Protein Albumin Triglycerides Arterial Blood Glucose Ur Specific [place] Coronavirus (PCR) 03/26/21 03/26/21 03/26/21 05:14 07:09 07:09 WBC RBC Hgb Hct MCV MCHC RDW 16.5 H Plt Count 139 L Lymph % (Auto) [place] % (Auto) Lymph # (Auto) [place] # (Auto) Seg Neutrophils % Seg Neuts % (Manual) Lymphocytes % (Manual) Monocytes % (Manual) Nucleated RBC % Seg Neutrophils # Seg Neutrophils # Man Lymphocytes # (Manual) Monocytes # (Manual) PT INR APTT D-Dimer Heparin Anti-Xa Level ABG pH POC ABG pCO2 POC ABG pO2 ABG pO2 ABG HCO3 ABG O2 Saturation ABG Base Excess ABG Hemoglobin ABG Oxyhemoglobin ABG Sodium ABG Potassium ABG Glucose Oxyhemoglobin Sodium Potassium Chloride Carbon Dioxide BUN 22 H Creatinine 0.7 L Glucose 108 H POC Glucose 116 H Lactic Acid Calcium Phosphorus Magnesium Ferritin Lactate Dehydrogenase C-Reactive Protein NT-Pro-B Natriuret Pep Total Protein Albumin Triglycerides Arterial Blood Glucose Ur Specific [place] Coronavirus (PCR) 03/26/21 03/26/21 03/26/21 09:51 11:15 16:59 WBC RBC Hgb Hct MCV MCHC RDW Plt Count Lymph % (Auto) [place] % (Auto) Lymph # (Auto) [place] # (Auto) Seg Neutrophils % Seg Neuts % (Manual) Lymphocytes % (Manual) Monocytes % (Manual) Nucleated RBC % Seg Neutrophils # Seg Neutrophils # Man Lymphocytes # (Manual) Monocytes # (Manual) PT INR APTT D-Dimer Heparin Anti-Xa Level ABG pH POC ABG pCO2 POC ABG pO2 ABG pO2 ABG HCO3 ABG O2 Saturation ABG Base Excess ABG Hemoglobin ABG Oxyhemoglobin ABG Sodium ABG Potassium ABG Glucose Oxyhemoglobin Sodium Potassium Chloride Carbon Dioxide BUN Creatinine Glucose POC Glucose 107 H 119 H 174 H Lactic Acid Calcium Phosphorus Magnesium Ferritin Lactate Dehydrogenase C-Reactive Protein NT-Pro-B Natriuret Pep Total Protein Albumin Triglycerides Arterial Blood Glucose Ur Specific [place] Coronavirus (PCR) 03/26/21 03/27/21 03/27/21 22:18 07:08 10:28 WBC RBC Hgb Hct MCV 95 H MCHC RDW 16.2 H Plt Count 134 L Lymph % (Auto) [place] % (Auto) Lymph # (Auto) [place] # (Auto) Seg Neutrophils % Seg Neuts % (Manual) Lymphocytes % (Manual) Monocytes % (Manual) Nucleated RBC % Seg Neutrophils # Seg Neutrophils # Man Lymphocytes # (Manual) Monocytes # (Manual) PT INR APTT D-Dimer Heparin Anti-Xa Level ABG pH POC ABG pCO2 POC ABG pO2 ABG pO2 ABG HCO3 ABG O2 Saturation ABG Base Excess ABG Hemoglobin ABG Oxyhemoglobin ABG Sodium ABG Potassium ABG Glucose Oxyhemoglobin Sodium Potassium Chloride Carbon Dioxide BUN Creatinine Glucose POC Glucose 107 H 52 L Lactic Acid Calcium Phosphorus Magnesium Ferritin Lactate Dehydrogenase C-Reactive Protein NT-Pro-B Natriuret Pep Total Protein Albumin Triglycerides Arterial Blood Glucose Ur Specific [place] Coronavirus (PCR) 03/27/21 03/27/21 03/27/21 10:28 11:45 17:39 WBC RBC Hgb Hct MCV MCHC RDW Plt Count Lymph % (Auto) [place] % (Auto) Lymph # (Auto) [place] # (Auto) Seg Neutrophils % Seg Neuts % (Manual) Lymphocytes % (Manual) Monocytes % (Manual) Nucleated RBC % Seg Neutrophils # Seg Neutrophils # Man Lymphocytes # (Manual) Monocytes # (Manual) PT INR APTT D-Dimer Heparin Anti-Xa Level ABG pH POC ABG pCO2 POC ABG pO2 ABG pO2 ABG HCO3 ABG O2 Saturation ABG Base Excess ABG Hemoglobin ABG Oxyhemoglobin ABG Sodium ABG Potassium ABG Glucose Oxyhemoglobin Sodium 136 L Potassium Chloride Carbon Dioxide BUN Creatinine 0.7 L Glucose 150 H POC Glucose 121 H 165 H Lactic Acid Calcium Phosphorus Magnesium Ferritin Lactate Dehydrogenase C-Reactive Protein NT-Pro-B Natriuret Pep Total Protein Albumin Triglycerides Arterial Blood Glucose Ur Specific [place] Coronavirus (PCR) 03/28/21 03/28/21 03/28/21 07:14 11:42 18:22 WBC RBC Hgb Hct MCV MCHC RDW 16.4 H Plt Count Lymph % (Auto) [place] % (Auto) Lymph # (Auto) [place] # (Auto) Seg Neutrophils % Seg Neuts % (Manual) Lymphocytes % (Manual) Monocytes % (Manual) Nucleated RBC % Seg Neutrophils # Seg Neutrophils # Man Lymphocytes # (Manual) Monocytes # (Manual) PT INR APTT D-Dimer Heparin Anti-Xa Level ABG pH POC ABG pCO2 POC ABG pO2 ABG pO2 ABG HCO3 ABG O2 Saturation ABG Base Excess ABG Hemoglobin ABG Oxyhemoglobin ABG Sodium ABG Potassium ABG Glucose Oxyhemoglobin Sodium Potassium Chloride Carbon Dioxide BUN Creatinine Glucose POC Glucose 145 H 169 H Lactic Acid Calcium Phosphorus Magnesium Ferritin Lactate Dehydrogenase C-Reactive Protein NT-Pro-B Natriuret Pep Total Protein Albumin Triglycerides Arterial Blood Glucose Ur Specific [place] Coronavirus (PCR) 03/28/21 03/29/21 03/29/21 23:39 04:50 04:50 WBC RBC Hgb 11.0 L Hct 34.9 L MCV MCHC RDW 15.9 H Plt Count Lymph % (Auto) [place] % (Auto) Lymph # (Auto) [place] # (Auto) Seg Neutrophils % Seg Neuts % (Manual) Lymphocytes % (Manual) Monocytes % (Manual) Nucleated RBC % Seg Neutrophils # Seg Neutrophils # Man Lymphocytes # (Manual) Monocytes # (Manual) PT INR APTT D-Dimer Heparin Anti-Xa Level ABG pH POC ABG pCO2 POC ABG pO2 ABG pO2 ABG HCO3 ABG O2 Saturation ABG Base Excess ABG Hemoglobin ABG Oxyhemoglobin ABG Sodium ABG Potassium ABG Glucose Oxyhemoglobin Sodium Potassium Chloride Carbon Dioxide 34 H BUN Creatinine 0.6 L Glucose 152 H POC Glucose 139 H Lactic Acid Calcium Phosphorus Magnesium Ferritin Lactate Dehydrogenase C-Reactive Protein NT-Pro-B Natriuret Pep Total Protein Albumin Triglycerides Arterial Blood Glucose Ur Specific [place] Coronavirus (PCR) 03/29/21 03/29/21 03/29/21 05:25 11:34 18:02 WBC RBC Hgb Hct MCV MCHC RDW Plt Count Lymph % (Auto) [place] % (Auto) Lymph # (Auto) [place] # (Auto) Seg Neutrophils % Seg Neuts % (Manual) Lymphocytes % (Manual) Monocytes % (Manual) Nucleated RBC % Seg Neutrophils # Seg Neutrophils # Man Lymphocytes # (Manual) Monocytes # (Manual) PT INR APTT D-Dimer Heparin Anti-Xa Level ABG pH POC ABG pCO2 POC ABG pO2 ABG pO2 ABG HCO3 ABG O2 Saturation ABG Base Excess ABG Hemoglobin ABG Oxyhemoglobin ABG Sodium ABG Potassium ABG Glucose Oxyhemoglobin Sodium Potassium Chloride Carbon Dioxide BUN Creatinine Glucose POC Glucose 127 H 169 H 173 H Lactic Acid Calcium Phosphorus Magnesium Ferritin Lactate Dehydrogenase C-Reactive Protein NT-Pro-B Natriuret Pep Total Protein Albumin Triglycerides Arterial Blood Glucose Ur Specific [place] Coronavirus (PCR) 03/29/21 03/30/21 03/30/21 21:42 00:01 05:36 WBC RBC Hgb Hct MCV MCHC RDW 16.7 H Plt Count Lymph % (Auto) [place] % (Auto) Lymph # (Auto) [place] # (Auto) Seg Neutrophils % Seg Neuts % (Manual) Lymphocytes % (Manual) Monocytes % (Manual) Nucleated RBC % Seg Neutrophils # Seg Neutrophils # Man Lymphocytes # (Manual) Monocytes # (Manual) PT INR APTT D-Dimer Heparin Anti-Xa Level ABG pH POC ABG pCO2 POC ABG pO2 ABG pO2 ABG HCO3 ABG O2 Saturation ABG Base Excess ABG Hemoglobin ABG Oxyhemoglobin ABG Sodium ABG Potassium ABG Glucose Oxyhemoglobin Sodium Potassium Chloride Carbon Dioxide BUN Creatinine Glucose POC Glucose 184 H 161 H Lactic Acid Calcium Phosphorus Magnesium Ferritin Lactate Dehydrogenase C-Reactive Protein NT-Pro-B Natriuret Pep Total Protein Albumin Triglycerides Arterial Blood Glucose Ur Specific [place] Coronavirus (PCR) 03/30/21 03/30/21 03/30/21 05:36 06:03 11:32 WBC RBC Hgb Hct MCV MCHC RDW Plt Count Lymph % (Auto) [place] % (Auto) Lymph # (Auto) [place] # (Auto) Seg Neutrophils % Seg Neuts % (Manual) Lymphocytes % (Manual) Monocytes % (Manual) Nucleated RBC % Seg Neutrophils # Seg Neutrophils # Man Lymphocytes # (Manual) Monocytes # (Manual) PT INR APTT D-Dimer Heparin Anti-Xa Level ABG pH POC ABG pCO2 POC ABG pO2 ABG pO2 ABG HCO3 ABG O2 Saturation ABG Base Excess ABG Hemoglobin ABG Oxyhemoglobin ABG Sodium ABG Potassium ABG Glucose Oxyhemoglobin Sodium Potassium Chloride Carbon Dioxide BUN Creatinine 0.5 L Glucose 127 H POC Glucose 130 H 183 H Lactic Acid Calcium Phosphorus Magnesium Ferritin Lactate Dehydrogenase C-Reactive Protein NT-Pro-B Natriuret Pep Total Protein Albumin Triglycerides Arterial Blood Glucose Ur Specific [place] Coronavirus (PCR) 03/30/21 03/30/21 03/30/21 15:00 16:23 21:07 WBC RBC Hgb Hct MCV MCHC RDW Plt Count Lymph % (Auto) [place] % (Auto) Lymph # (Auto) [place] # (Auto) Seg Neutrophils % Seg Neuts % (Manual) Lymphocytes % (Manual) Monocytes % (Manual) Nucleated RBC % Seg Neutrophils # Seg Neutrophils # Man Lymphocytes # (Manual) Monocytes # (Manual) PT INR APTT D-Dimer Heparin Anti-Xa Level ABG pH POC ABG pCO2 POC ABG pO2 ABG pO2 67.2 L ABG HCO3 34.9 H ABG O2 Saturation ABG Base Excess 9.1 H ABG Hemoglobin 11.6 L ABG Oxyhemoglobin ABG Sodium ABG Potassium ABG Glucose Oxyhemoglobin 93.0 L Sodium Potassium Chloride Carbon Dioxide BUN Creatinine Glucose POC Glucose 162 H 146 H Lactic Acid Calcium Phosphorus Magnesium Ferritin Lactate Dehydrogenase C-Reactive Protein NT-Pro-B Natriuret Pep Total Protein Albumin Triglycerides Arterial Blood Glucose Ur Specific [place] Coronavirus (PCR) 03/30/21 03/31/21 03/31/21 23:23 05:44 11:19 WBC RBC Hgb Hct MCV MCHC RDW Plt Count Lymph % (Auto) [place] % (Auto) Lymph # (Auto) [place] # (Auto) Seg Neutrophils % Seg Neuts % (Manual) Lymphocytes % (Manual) Monocytes % (Manual) Nucleated RBC % Seg Neutrophils # Seg Neutrophils # Man Lymphocytes # (Manual) Monocytes # (Manual) PT INR APTT D-Dimer Heparin Anti-Xa Level ABG pH POC ABG pCO2 POC ABG pO2 ABG pO2 ABG HCO3 ABG O2 Saturation ABG Base Excess ABG Hemoglobin ABG Oxyhemoglobin ABG Sodium ABG Potassium ABG Glucose Oxyhemoglobin Sodium Potassium Chloride Carbon Dioxide BUN Creatinine Glucose POC Glucose 138 H 180 H 178 H Lactic Acid Calcium Phosphorus Magnesium Ferritin Lactate Dehydrogenase C-Reactive Protein NT-Pro-B Natriuret Pep Total Protein Albumin Triglycerides Arterial Blood Glucose Ur Specific [place] Coronavirus (PCR) 03/31/21 03/31/21 03/31/21 12:50 13:30 16:06 WBC RBC Hgb 11.3 L Hct 35.1 L MCV MCHC RDW 16.5 H Plt Count Lymph % (Auto) 7.6 L [place] % (Auto) 9.5 H Lymph # (Auto) 0.6 L [place] # (Auto) Seg Neutrophils % 78.3 H Seg Neuts % (Manual) Lymphocytes % (Manual) Monocytes % (Manual) Nucleated RBC % Seg Neutrophils # Seg Neutrophils # Man Lymphocytes # (Manual) Monocytes # (Manual) PT INR APTT D-Dimer Heparin Anti-Xa Level ABG pH POC ABG pCO2 POC ABG pO2 ABG pO2 99.4 H ABG HCO3 34.9 H ABG O2 Saturation ABG Base Excess 8.4 H ABG Hemoglobin 11.8 L ABG Oxyhemoglobin ABG Sodium ABG Potassium ABG Glucose Oxyhemoglobin Sodium Potassium Chloride Carbon Dioxide BUN Creatinine Glucose POC Glucose 197 H Lactic Acid Calcium Phosphorus Magnesium Ferritin Lactate Dehydrogenase C-Reactive Protein NT-Pro-B Natriuret Pep Total Protein Albumin Triglycerides Arterial Blood Glucose Ur Specific [place] Coronavirus (PCR) 03/31/21 04/01/21 04/01/21 20:51 05:37 07:16 WBC RBC 3.39 L Hgb 10.5 L Hct 31.6 L MCV MCHC RDW 16.1 H Plt Count Lymph % (Auto) [place] % (Auto) Lymph # (Auto) [place] # (Auto) Seg Neutrophils % Seg Neuts % (Manual) Lymphocytes % (Manual) Monocytes % (Manual) Nucleated RBC % Seg Neutrophils # Seg Neutrophils # Man Lymphocytes # (Manual) Monocytes # (Manual) PT INR APTT D-Dimer Heparin Anti-Xa Level ABG pH POC ABG pCO2 POC ABG pO2 ABG pO2 ABG HCO3 ABG O2 Saturation ABG Base Excess ABG Hemoglobin ABG Oxyhemoglobin ABG Sodium ABG Potassium ABG Glucose Oxyhemoglobin Sodium Potassium Chloride Carbon Dioxide BUN Creatinine Glucose POC Glucose 140 H 128 H Lactic Acid Calcium Phosphorus Magnesium Ferritin Lactate Dehydrogenase C-Reactive Protein NT-Pro-B Natriuret Pep Total Protein Albumin Triglycerides Arterial Blood Glucose Ur Specific [place] Coronavirus (PCR) 04/01/21 04/01/21 04/01/21 07:16 11:52 16:56 WBC RBC Hgb Hct MCV MCHC RDW Plt Count Lymph % (Auto) [place] % (Auto) Lymph # (Auto) [place] # (Auto) Seg Neutrophils % Seg Neuts % (Manual) Lymphocytes % (Manual) Monocytes % (Manual) Nucleated RBC % Seg Neutrophils # Seg Neutrophils # Man Lymphocytes # (Manual) Monocytes # (Manual) PT INR APTT D-Dimer Heparin Anti-Xa Level ABG pH POC ABG pCO2 POC ABG pO2 ABG pO2 ABG HCO3 ABG O2 Saturation ABG Base Excess ABG Hemoglobin ABG Oxyhemoglobin ABG Sodium ABG Potassium ABG Glucose Oxyhemoglobin Sodium Potassium Chloride Carbon Dioxide BUN Creatinine 0.6 L Glucose 131 H POC Glucose 182 H 179 H Lactic Acid Calcium 8.3 L Phosphorus Magnesium Ferritin Lactate Dehydrogenase C-Reactive Protein NT-Pro-B Natriuret Pep Total Protein Albumin Triglycerides Arterial Blood Glucose Ur Specific [place] Coronavirus (PCR) 04/01/21 04/01/21 04/02/21 21:30 23:40 04:26 WBC RBC 3.62 L Hgb 10.8 L Hct 33.9 L MCV MCHC RDW 16.0 H Plt Count Lymph % (Auto) [place] % (Auto) Lymph # (Auto) [place] # (Auto) Seg Neutrophils % Seg Neuts % (Manual) Lymphocytes % (Manual) Monocytes % (Manual) Nucleated RBC % Seg Neutrophils # Seg Neutrophils # Man Lymphocytes # (Manual) Monocytes # (Manual) PT INR APTT D-Dimer Heparin Anti-Xa Level ABG pH POC ABG pCO2 POC ABG pO2 ABG pO2 ABG HCO3 ABG O2 Saturation ABG Base Excess ABG Hemoglobin ABG Oxyhemoglobin ABG Sodium ABG Potassium ABG Glucose Oxyhemoglobin Sodium Potassium Chloride Carbon Dioxide BUN Creatinine Glucose POC Glucose 131 H 129 H Lactic Acid Calcium Phosphorus Magnesium Ferritin Lactate Dehydrogenase C-Reactive Protein NT-Pro-B Natriuret Pep Total Protein Albumin Triglycerides Arterial Blood Glucose Ur Specific [place] Coronavirus (PCR) 04/02/21 04/02/21 04/02/21 04:26 05:54 11:35 WBC RBC Hgb Hct MCV MCHC RDW Plt Count Lymph % (Auto) [place] % (Auto) Lymph # (Auto) [place] # (Auto) Seg Neutrophils % Seg Neuts % (Manual) Lymphocytes % (Manual) Monocytes % (Manual) Nucleated RBC % Seg Neutrophils # Seg Neutrophils # Man Lymphocytes # (Manual) Monocytes # (Manual) PT INR APTT D-Dimer Heparin Anti-Xa Level ABG pH POC ABG pCO2 POC ABG pO2 ABG pO2 ABG HCO3 ABG O2 Saturation ABG Base Excess ABG Hemoglobin ABG Oxyhemoglobin ABG Sodium ABG Potassium ABG Glucose Oxyhemoglobin Sodium 136 L Potassium Chloride Carbon Dioxide BUN Creatinine 0.6 L Glucose 152 H POC Glucose 151 H 178 H Lactic Acid Calcium Phosphorus Magnesium Ferritin Lactate Dehydrogenase C-Reactive Protein NT-Pro-B Natriuret Pep Total Protein Albumin Triglycerides Arterial Blood Glucose Ur Specific [place] Coronavirus (PCR) 04/02/21 04/02/21 04/02/21 16:11 21:09 23:38 WBC RBC Hgb Hct MCV MCHC RDW Plt Count Lymph % (Auto) [place] % (Auto) Lymph # (Auto) [place] # (Auto) Seg Neutrophils % Seg Neuts % (Manual) Lymphocytes % (Manual) Monocytes % (Manual) Nucleated RBC % Seg Neutrophils # Seg Neutrophils # Man Lymphocytes # (Manual) Monocytes # (Manual) PT INR APTT D-Dimer Heparin Anti-Xa Level ABG pH POC ABG pCO2 POC ABG pO2 ABG pO2 ABG HCO3 ABG O2 Saturation ABG Base Excess ABG Hemoglobin ABG Oxyhemoglobin ABG Sodium ABG Potassium ABG Glucose Oxyhemoglobin Sodium Potassium Chloride Carbon Dioxide BUN Creatinine Glucose POC Glucose 186 H 145 H 152 H Lactic Acid Calcium Phosphorus Magnesium Ferritin Lactate Dehydrogenase C-Reactive Protein NT-Pro-B Natriuret Pep Total Protein Albumin Triglycerides Arterial Blood Glucose Ur Specific [place] Coronavirus (PCR) 04/03/21 04/03/21 04/03/21 04:14 04:14 05:27 WBC RBC 3.62 L Hgb 11.0 L Hct 34.0 L MCV MCHC RDW 16.3 H Plt Count Lymph % (Auto) [place] % (Auto) Lymph # (Auto) [place] # (Auto) Seg Neutrophils % Seg Neuts % (Manual) Lymphocytes % (Manual) Monocytes % (Manual) Nucleated RBC % Seg Neutrophils # Seg Neutrophils # Man Lymphocytes # (Manual) Monocytes # (Manual) PT INR APTT D-Dimer Heparin Anti-Xa Level ABG pH POC ABG pCO2 POC ABG pO2 ABG pO2 ABG HCO3 ABG O2 Saturation ABG Base Excess ABG Hemoglobin ABG Oxyhemoglobin ABG Sodium ABG Potassium ABG Glucose Oxyhemoglobin Sodium Potassium Chloride Carbon Dioxide 31 H BUN Creatinine 0.6 L Glucose 155 H POC Glucose 165 H Lactic Acid Calcium Phosphorus Magnesium Ferritin Lactate Dehydrogenase C-Reactive Protein NT-Pro-B Natriuret Pep Total Protein Albumin Triglycerides Arterial Blood Glucose Ur Specific [place] Coronavirus (PCR) 04/03/21 04/03/21 04/03/21 11:02 16:19 19:45 WBC RBC Hgb Hct MCV MCHC RDW Plt Count Lymph % (Auto) [place] % (Auto) Lymph # (Auto) [place] # (Auto) Seg Neutrophils % Seg Neuts % (Manual) Lymphocytes % (Manual) Monocytes % (Manual) Nucleated RBC % Seg Neutrophils # Seg Neutrophils # Man Lymphocytes # (Manual) Monocytes # (Manual) PT INR APTT D-Dimer Heparin Anti-Xa Level ABG pH POC ABG pCO2 POC ABG pO2 ABG pO2 ABG HCO3 ABG O2 Saturation ABG Base Excess ABG Hemoglobin ABG Oxyhemoglobin ABG Sodium ABG Potassium ABG Glucose Oxyhemoglobin Sodium Potassium Chloride Carbon Dioxide BUN Creatinine Glucose POC Glucose 161 H 180 H 136 H Lactic Acid Calcium Phosphorus Magnesium Ferritin Lactate Dehydrogenase C-Reactive Protein NT-Pro-B Natriuret Pep Total Protein Albumin Triglycerides Arterial Blood Glucose Ur Specific [place] Coronavirus (PCR) 04/04/21 04/04/21 04/04/21 00:21 04:33 04:33 WBC 13.1 H RBC 3.49 L Hgb 10.3 L Hct 32.7 L MCV MCHC RDW 16.1 H Plt Count Lymph % (Auto) [place] % (Auto) Lymph # (Auto) [place] # (Auto) Seg Neutrophils % Seg Neuts % (Manual) Lymphocytes % (Manual) Monocytes % (Manual) Nucleated RBC % Seg Neutrophils # Seg Neutrophils # Man Lymphocytes # (Manual) Monocytes # (Manual) PT INR APTT D-Dimer Heparin Anti-Xa Level ABG pH POC ABG pCO2 POC ABG pO2 ABG pO2 ABG HCO3 ABG O2 Saturation ABG Base Excess ABG Hemoglobin ABG Oxyhemoglobin ABG Sodium ABG Potassium ABG Glucose Oxyhemoglobin Sodium Potassium Chloride Carbon Dioxide 31 H BUN Creatinine 0.4 L Glucose 153 H POC Glucose 140 H Lactic Acid Calcium Phosphorus Magnesium Ferritin Lactate Dehydrogenase C-Reactive Protein NT-Pro-B Natriuret Pep Total Protein Albumin Triglycerides Arterial Blood Glucose Ur Specific [place] Coronavirus (PCR) 04/04/21 04/04/21 04/04/21 05:16 11:39 17:22 WBC RBC Hgb Hct MCV MCHC RDW Plt Count Lymph % (Auto) [place] % (Auto) Lymph # (Auto) [place] # (Auto) Seg Neutrophils % Seg Neuts % (Manual) Lymphocytes % (Manual) Monocytes % (Manual) Nucleated RBC % Seg Neutrophils # Seg Neutrophils # Man Lymphocytes # (Manual) Monocytes # (Manual) PT INR APTT D-Dimer Heparin Anti-Xa Level ABG pH POC ABG pCO2 POC ABG pO2 ABG pO2 ABG HCO3 ABG O2 Saturation ABG Base Excess ABG Hemoglobin ABG Oxyhemoglobin ABG Sodium ABG Potassium ABG Glucose Oxyhemoglobin Sodium Potassium Chloride Carbon Dioxide BUN Creatinine Glucose POC Glucose 152 H 154 H 198 H Lactic Acid Calcium Phosphorus Magnesium Ferritin Lactate Dehydrogenase C-Reactive Protein NT-Pro-B Natriuret Pep Total Protein Albumin Triglycerides Arterial Blood Glucose Ur Specific [place] Coronavirus (PCR) 04/04/21 04/04/21 04/05/21 20:14 23:16 04:15 WBC RBC 3.21 L Hgb 10.0 L Hct 30.3 L MCV MCHC RDW 16.4 H Plt Count Lymph % (Auto) [place] % (Auto) Lymph # (Auto) [place] # (Auto) Seg Neutrophils % Seg Neuts % (Manual) Lymphocytes % (Manual) Monocytes % (Manual) Nucleated RBC % Seg Neutrophils # Seg Neutrophils # Man Lymphocytes # (Manual) Monocytes # (Manual) PT INR APTT D-Dimer Heparin Anti-Xa Level ABG pH POC ABG pCO2 POC ABG pO2 ABG pO2 ABG HCO3 ABG O2 Saturation ABG Base Excess ABG Hemoglobin ABG Oxyhemoglobin ABG Sodium ABG Potassium ABG Glucose Oxyhemoglobin Sodium Potassium Chloride Carbon Dioxide BUN Creatinine Glucose POC Glucose 161 H 139 H Lactic Acid Calcium Phosphorus Magnesium Ferritin Lactate Dehydrogenase C-Reactive Protein NT-Pro-B Natriuret Pep Total Protein Albumin Triglycerides Arterial Blood Glucose Ur Specific [place] Coronavirus (PCR) 04/05/21 04/05/21 04/05/21 04:15 05:34 12:09 WBC RBC Hgb Hct MCV MCHC RDW Plt Count Lymph % (Auto) [place] % (Auto) Lymph # (Auto) [place] # (Auto) Seg Neutrophils % Seg Neuts % (Manual) Lymphocytes % (Manual) Monocytes % (Manual) Nucleated RBC % Seg Neutrophils # Seg Neutrophils # Man Lymphocytes # (Manual) Monocytes # (Manual) PT INR APTT D-Dimer Heparin Anti-Xa Level ABG pH POC ABG pCO2 POC ABG pO2 ABG pO2 ABG HCO3 ABG O2 Saturation ABG Base Excess ABG Hemoglobin ABG Oxyhemoglobin ABG Sodium ABG Potassium ABG Glucose Oxyhemoglobin Sodium Potassium Chloride 97.6 L Carbon Dioxide 32 H BUN Creatinine 0.5 L Glucose 147 H POC Glucose 145 H 173 H Lactic Acid Calcium Phosphorus Magnesium Ferritin Lactate Dehydrogenase C-Reactive Protein NT-Pro-B Natriuret Pep Total Protein Albumin Triglycerides Arterial Blood Glucose Ur Specific [place] Coronavirus (PCR) 04/05/21 04/05/21 04/05/21 17:35 21:07 23:15 WBC RBC Hgb Hct MCV MCHC RDW Plt Count Lymph % (Auto) [place] % (Auto) Lymph # (Auto) [place] # (Auto) Seg Neutrophils % Seg Neuts % (Manual) Lymphocytes % (Manual) Monocytes % (Manual) Nucleated RBC % Seg Neutrophils # Seg Neutrophils # Man Lymphocytes # (Manual) Monocytes # (Manual) PT INR APTT D-Dimer Heparin Anti-Xa Level ABG pH POC ABG pCO2 POC ABG pO2 ABG pO2 ABG HCO3 ABG O2 Saturation ABG Base Excess ABG Hemoglobin ABG Oxyhemoglobin ABG Sodium ABG Potassium ABG Glucose Oxyhemoglobin Sodium Potassium Chloride Carbon Dioxide BUN Creatinine Glucose POC Glucose 143 H 157 H 171 H Lactic Acid Calcium Phosphorus Magnesium Ferritin Lactate Dehydrogenase C-Reactive Protein NT-Pro-B Natriuret Pep Total Protein Albumin Triglycerides Arterial Blood Glucose Ur Specific [place] Coronavirus (PCR) 04/06/21 04/06/21 04/06/21 04:49 05:14 11:42 WBC RBC Hgb Hct MCV MCHC RDW Plt Count Lymph % (Auto) [place] % (Auto) Lymph # (Auto) [place] # (Auto) Seg Neutrophils % Seg Neuts % (Manual) Lymphocytes % (Manual) Monocytes % (Manual) Nucleated RBC % Seg Neutrophils # Seg Neutrophils # Man Lymphocytes # (Manual) Monocytes # (Manual) PT INR APTT D-Dimer Heparin Anti-Xa Level ABG pH POC ABG pCO2 57.4 H POC ABG pO2 55.1 L ABG pO2 ABG HCO3 ABG O2 Saturation ABG Base Excess ABG Hemoglobin 11.5 L ABG Oxyhemoglobin 87.5 L ABG Sodium ABG Potassium ABG Glucose Oxyhemoglobin Sodium Potassium Chloride Carbon Dioxide BUN Creatinine Glucose POC Glucose 145 H 171 H Lactic Acid Calcium Phosphorus Magnesium Ferritin Lactate Dehydrogenase C-Reactive Protein NT-Pro-B Natriuret Pep Total Protein Albumin Triglycerides Arterial Blood Glucose Ur Specific [place] Coronavirus (PCR) 04/06/21 04/06/21 04/06/21 11:50 15:36 15:36 WBC RBC Hgb 10.4 L Hct 32.5 L MCV MCHC RDW Plt Count 444 H Lymph % (Auto) [place] % (Auto) Lymph # (Auto) [place] # (Auto) Seg Neutrophils % Seg Neuts % (Manual) Lymphocytes % (Manual) Monocytes % (Manual) Nucleated RBC % Seg Neutrophils # Seg Neutrophils # Man Lymphocytes # (Manual) Monocytes # (Manual) PT INR APTT 37.1 H D-Dimer Heparin Anti-Xa Level ABG pH 7.341 L POC ABG pCO2 POC ABG pO2 ABG pO2 108.9 H ABG HCO3 38.9 H ABG O2 Saturation ABG Base Excess 10.6 H ABG Hemoglobin 11.5 L ABG Oxyhemoglobin ABG Sodium ABG Potassium ABG Glucose Oxyhemoglobin Sodium Potassium Chloride Carbon Dioxide BUN Creatinine Glucose POC Glucose Lactic Acid Calcium Phosphorus Magnesium Ferritin Lactate Dehydrogenase C-Reactive Protein NT-Pro-B Natriuret Pep Total Protein Albumin Triglycerides Arterial Blood Glucose Ur Specific [place] Coronavirus (PCR) 04/06/21 04/07/21 04/07/21 17:57 00:30 00:32 WBC RBC Hgb Hct MCV MCHC RDW Plt Count Lymph % (Auto) [place] % (Auto) Lymph # (Auto) [place] # (Auto) Seg Neutrophils % Seg Neuts % (Manual) Lymphocytes % (Manual) Monocytes % (Manual) Nucleated RBC % Seg Neutrophils # Seg Neutrophils # Man Lymphocytes # (Manual) Monocytes # (Manual) PT INR APTT D-Dimer Heparin Anti-Xa Level < 0.10 L ABG pH POC ABG pCO2 POC ABG pO2 ABG pO2 ABG HCO3 ABG O2 Saturation ABG Base Excess ABG Hemoglobin ABG Oxyhemoglobin ABG Sodium ABG Potassium ABG Glucose Oxyhemoglobin Sodium Potassium Chloride Carbon Dioxide BUN Creatinine Glucose POC Glucose 151 H 149 H Lactic Acid Calcium Phosphorus Magnesium Ferritin Lactate Dehydrogenase C-Reactive Protein NT-Pro-B Natriuret Pep Total Protein Albumin Triglycerides Arterial Blood Glucose Ur Specific [place] Coronavirus (PCR) 04/07/21 04/07/21 04/07/21 05:34 06:08 06:08 WBC RBC 3.20 L Hgb 9.6 L Hct 29.8 L MCV MCHC RDW 16.0 H Plt Count 455 H Lymph % (Auto) [place] % (Auto) Lymph # (Auto) [place] # (Auto) Seg Neutrophils % Seg Neuts % (Manual) Lymphocytes % (Manual) Monocytes % (Manual) Nucleated RBC % Seg Neutrophils # Seg Neutrophils # Man Lymphocytes # (Manual) Monocytes # (Manual) PT INR APTT D-Dimer Heparin Anti-Xa Level ABG pH POC ABG pCO2 POC ABG pO2 ABG pO2 ABG HCO3 ABG O2 Saturation ABG Base Excess ABG Hemoglobin ABG Oxyhemoglobin ABG Sodium ABG Potassium ABG Glucose Oxyhemoglobin Sodium Potassium Chloride Carbon Dioxide 35 H BUN Creatinine 0.5 L Glucose 216 H POC Glucose 182 H Lactic Acid Calcium Phosphorus Magnesium Ferritin Lactate Dehydrogenase C-Reactive Protein NT-Pro-B Natriuret Pep Total Protein Albumin Triglycerides Arterial Blood Glucose Ur Specific [place] Coronavirus (PCR) 04/07/21 04/07/21 07:55 11:57 WBC RBC Hgb Hct MCV MCHC RDW Plt Count Lymph % (Auto) [place] % (Auto) Lymph # (Auto) [place] # (Auto) Seg Neutrophils % Seg Neuts % (Manual) Lymphocytes % (Manual) Monocytes % (Manual) Nucleated RBC % Seg Neutrophils # Seg Neutrophils # Man Lymphocytes # (Manual) Monocytes # (Manual) PT INR APTT D-Dimer Heparin Anti-Xa Level < 0.10 L ABG pH POC ABG pCO2 POC ABG pO2 ABG pO2 ABG HCO3 ABG O2 Saturation ABG Base Excess ABG Hemoglobin ABG Oxyhemoglobin ABG Sodium ABG Potassium ABG Glucose Oxyhemoglobin Sodium Potassium Chloride Carbon Dioxide BUN Creatinine Glucose POC Glucose 182 H Lactic Acid Calcium Phosphorus Magnesium Ferritin Lactate Dehydrogenase C-Reactive Protein NT-Pro-B Natriuret Pep Total Protein Albumin Triglycerides Arterial Blood Glucose Ur Specific [place] Coronavirus (PCR) Chest x-ray: pending Allied health notes reviewed: nursing
--- NOTE | 2021-04-07 14:45 | Vascular Lab Report ---
DUPLEX DOPPLER LOWER EXTREMITY VEINS, BILATERAL INDICATION / CLINICAL INFORMATION: swelling. TECHNIQUE: Duplex doppler imaging was performed through the veins of both lower extremities using bob ous compression and other maneuvers. COMPARISON: Bilateral lower extremity venous Doppler 03/23/2021. FINDINGS: RIGHT COMMON FEMORAL VEIN: Negative. RIGHT FEMORAL VEIN: Negative. RIGHT POPLITEAL VEIN: Negative. RIGHT CALF VEINS: Negative. LEFT COMMON FEMORAL VEIN: Negative. LEFT FEMORAL VEIN: Negative. LEFT POPLITEAL VEIN: Negative. LEFT CALF VEINS: Negative. Thrombus is again visualized within the left gastrocnemius vein, similar t o previous exam. ADDITIONAL FINDINGS: None. IMPRESSION: 1. No sonographic evidence for DVT in either lower extremity. 2. Superficial thrombus within the left gastrocnemius vein appears unchanged from previous exam. Scribed by: Sarah Soliz RDMS, RVT Scribed: 04/07/2021 1:17 PM I have reviewed the images, agree with this report, and edited this report as needed. Signer Name: Macho Bobo MD Signed: 04/07/2021 2:41 PM Workstation Name: [id number]
--- NOTE | 2021-04-07 16:20 | Progress Note ---
Assessment and Plan Assessment and plan: This is a 61-year-old man with HTN and DM admitted with COVID-19 pneumonia, acute hypoxic respiratory failure, sepsis Neuro: Acute encephalopathy -Sedated with fentanyl drip -RASS goal 0 to -1 -Avoid delirium -On Seroquel and Librium -Second dose increased to 250 twice daily -Started on scheduled Lortab for 7 days -Reorientation as needed -Maintain sleep-wake cycle -As needed analgesia -CT head shows no acute intracranial abnormality -Neurology consulted, appreciate recommendations Cardiac: h/o Hypertension -Cardiology consulted, appreciate recommendations -Blood pressure monitoring per protocol -Echocardiogram shows a mildly dilated ascending aorta, normal LV systolic function, mild concentric LVH, LVEF 60 to 65% -Antihypertensive regimen: Hydralazine, metoprolol, amlodipine Respiratory: Acute hypoxic respiratory failure -[facility] consulted, appreciate recommendations -Intubated on 03/10 with 7.50 ETT at 24 at the lips, s/p trach on 03/29 -A.m. vent settings: Assist-control rate 12, tidal volume 450, PEEP 10, FiO2 65% -See RT notes for titration -A.m. ABG noted -Albuterol as needed, Brovana Pulmicort -VAP bundle -SPO2 monitoring GI: Obesity, external hemorrhoids -24 hours -143 mL -PPI -NTR consulted for tube feedings -BR: Senokot, miralax -BM 04/06 -As needed Preparation H : Urinary retention -Nephrology consulted, appreciate recommendations -Strict intake and output -Renally dose medications -Avoid nephrotoxic medications -Doxazosin increased to twice daily ID: Severe sepsis (POA), COVID-19 pneumonia, stenotrophomonas maltophilia and tr acheal aspirate -Infectious disease consulted, appreciate recommendations -Antibiotic therapy with cefepime -Due to low procalcitonin and cultures remaining negative cefepime was discontinued -S/p remdesivir for 5 days -S/p Actemra 03/10/2021 -f/u blood culture -Monitor WBC and temperature curve -steroids tapered off -04/07 Per ID: if persistently febrile and WBC rises, reculture and then restart abx: IV Cefepime + Vancomycin Heme: Acute right upper extremity DVT , superficial thrombus in left gastrocnemius vein -Bilateral lower extremity ultrasound negative for DVT, superficial thrombus in left gastrocnemius vein -repeat BLE Doppler US show superficial thrombus -Repeat bilateral upper extremity ultrasound shows DVT in right upper extremity -Started on heparin drip -Titration per protocol -repeat BLE UE dopplar showed superficial thrombus within the gastrocnemius vein changed from previous study -CTA chest shows no gross pulm embolism -Trend CBC -SCDs to BLE while in bed -Transfuse hemoglobin less than 7 -Monitor for signs of bleeding Endo: h/o DM -Avoid hypoglycemia -SSI -Accu-Cheks q. 6 -Long-acting insulin, titrate as needed The high probability of a clinically significant, sudden or life threatening deterioration of the [multi] system(s) required my full and direct attention, intervention and personal management. The aggregate critical care time was [60] minutes. This time is in addition to time spent performing reported procedures but includes the following: [x] Data Review and interpretation [x] Patient assessment and monitoring of vital signs [x] Documentation [x] Medication orders and management Disposition Plan: icu Total Time Spent with Patient (Minutes): 60 History Interval history: This is a 61-year-old male with HTN and DM who presented to the emergency department on 03/09 with shortness of breath and hypoxia via EMS. Patient had apparently been feeling ill for proxy 1 week prior to mentation. Upon EMS arrival patient SPO2 was in the low 70s and improved to upper 80slow 90s on nonrebreather and he was transported to [facility] in the emergency department patient was noted to be hypoxic and placed on a BiPAP with improvement to mentation and hypoxia. CXR showed bilateral patchy infiltrates. Lab work showed leukocytosis, elevated D-dimer, hyponatremia, hypochloremia and elevated COVID-19 markers with elevated BNP. CTA chest showed no pulmonary embolism. Patient was admitted to the hospitalist service as a COVID-19 PUI and started on antibiotics and Decadron with consult to infectious disease. 03/09: The patient was seen and evaluated today, and he was found to be hemodynamically stable. The patient is currently on BiPAP for possible COVID-19 pneumonia. He was started on Lovenox 1mg/kg for DVT ppx in the setting of d- dimer > 10,000. Infectious Disease was consulted. The patient is pending a TTE. 03/10: No acute events overnight, patient was intubated in the afternoon transferred to ICU 03/11: Patient started on Lantus, free water flushes increased, propofol drip resumed and oral antihypertensive added. 03/12: lantus increased, k at 5, will monitor. I updated his family and his stated that he is not vaccinated. He does have HTN and she will call the RN to update home medications. She did say he takes bystolic and amlopine. She inquired about ventilator and lab work. She had no further questions. 03/13: KVNG overnight. Patient remains hyperglycemic, basal insulin adjusted and increased to Q12hrs. Patient is overall net positive since admit X1 dose of IV lasix, repeat BMP this afternoon. 03/14: Failed SAT this am due to increase agitation, tachycardia and hypert ension. Remains on propofol and fentanyl gtt. Hyperkalemia treated with PO kayaxalate. Patient responded to IV lasix yesterday additional dose again today for a net negative balance. Repeat BMP this afternoon. Insulin adjusted for hyperglycemia. 03/15: Remains encephalopathic, not following commansd. Orders placed for CT head/Brain and Neuro consulted. Rectal bleeding subsided, most likely due to hemorrhoids. H&H is stable will continue to monitor. Kayaxexalate for high K, repeat labs 4 to 6hrs post treatment. 03/16: Still agiated this am, CT head with no acute Abn. CXR and ABG noted- evolving pna and worsening hypoxia, now with low grade fevers. Sputum culture ordered, IV Abx added, ID on cosult. 03/17: This am ABG noted, hypoxia improved. Continue to wean FiO2 as tolerated. Still with low grade fevers, on IV Abx per ID. Still with periods of confusion despite sedation, seroquel increased. F/u CXR in the am 03/18: still very agitated especially when off sedation, with hypertension and tachycardia. Continue sedation for RASS -2, PRN antihypertensive for SPB greater than 160. This febrile this am, continue current IV abx per ID 03/19: Patient afebrile overnight, continue IV Abx per ID. ABG also improved this am, continue to wean FIO2 as tolerated. PRN antihypertensive for hypertension. 03/20: Hyperkalemia treated with Kayexalate, Good discontinued, vancomycin and cefepime stopped started Bactrim by ID. Steroid taper started. 03/21: BB started for hypertension, Seroquel increased for agitation and Librium started no acute events reported overnight. CCM made vent changes 03/22: Adjustment to anxiolytics, respiratory rate on ventilator per CCM. Patient noted to have bleeding hemorrhoids with clot, requested RN to remove bowel management system and will order Preparation H. 03/23: Given no confirmed DVT or PE (only superficial thrombus noted on Dopplers) therapeutic Lovenox changed to prophylactic Lovenox. Started on doxazosin to help with retention. Consulted surgery for tracheostomy and propofol discontinued. 03/24: Surgery consult completed, patient changed to prophylaxis anticoagulation, started on doxazosin yesterday with plans to remove Good catheter in 48 hours. Patient with slight hypokalemia today and given Kayexalate. No acute events reported overnight. 03/25: No acute events reported overnight. Patient remains on fentanyl drip and on CPAP trial this morning. 03/26: no acute events reported overnight. placed on CPAP this AM, remains on fen t/librium. scheduled for trach/peg this week. 03/27: Hypoglycemic this am, will decreased lantus to Qhs. Plan for possible Trach and Peg by Gen Surg this am. Case management to arrange possible LTAC placement 03/28: KVNG overnight. Tolerating PST this am. Plan for trach and PEG tomorrow by Gen. Surgery, NPO after midnight. 03/29: No significant changes overnight. Plan for trach and Peg today. Case m anagement to arrange possible LTAC placement 03/30. S/p Trach and PEG, no complications noted. High residual yesterday despite NPO status, reglan added X2 days. Per RN no residual this am, patient is t olerating TF. Continue to advance TF as tolerated. Norvasc added for hypertension. Pitting edema also appreciated, some diuretic might be beneficial, will d/w CCM. Continue daily PST as tolerated. 03/31: Patient remains on the vent still on fentanyl gtt with periods of agitation. PRN analgesia added, plan to start weaning off fentanyl gtt. Febrile this am, completed IV abx course. Will panculture for now, ID is also following. 04/01: Still febrile overnight, cultures result pending, continue IV ABx per ID. Failed PST this am. Continue daily PST and vent wean per CCM. Case management to arrange possible placement. 04/02: KVNG overnight. Fevers improved overnight, continue to follow cultures data, IV ABx per ID. Continue daily PST and wean vent as per CCM. 04/03: Given low procalcitonin, unchanged CXR and cultures with no growth cefepime was discontinued by ID. LTAC evaluation ongoing. No acute events reported overnight. 04/04: IV Lasix stopped today, Seroquel taper started, fentanyl drip on hold and steroids stopped. Pressure support trial again today. 04/05: Patient had to be restarted on fentanyl drip therefore Seroquel was increased back to 250 twice daily and he was started on scheduled narcotics and efforts to wean fentanyl drip. Doxazosin was increased to twice daily as patien t still had retention issues on doxazosin once a day. Patient was denied LTAC placement. CPAP trial today. 04/06: Right upper extremity ultrasound obtained due to edema which showed DVT. Patient started on heparin drip. Overnight patient had hypoxia, tachypnea, tachycardia, hypotension and FiO2 was increased to 100%. RT titrating as tolerated. Plan was to start T-piece trials today. Patient has been denied LTAC placement. 04/07: BLE dopplar, continue lasix per ccm, CXR in AM. Increase in fio2 overnight d/t desaturation. Wean FiO2 as tolerated. Hospitalist Physical - Physical exam Narrative exam: General appearance: Present: well-nourished, obese, other (sedated) - EENT Eyes: Present: PERRL, EOM intact ENT: hearing intact, clear oral mucosa - Neck Neck: Present: normal ROM - Respiratory Respiratory effort: normal Respiratory: bilateral: diminished - Cardiovascular Rhythm: regular Heart Sounds: Present: S1 & S2. Absent: systolic murmur, diastolic murmur - Extremities Extremities: no ischemia, pulses intact, pulses symmetrical, No edema, normal temperature, normal color Peripheral Pulses: within normal limits - Abdominal General gastrointestinal: soft, non-tender, non-distended, normal bowel sounds - Integumentary Integumentary: Present: warm, dry - Psychiatric Psychiatric: other - Neurologic Neurologic: other - Allied Health Allied health notes reviewed: nursing, RT - Constitutional Vitals: Temp Pulse Resp BP Pulse Ox 99 F 114 H 16 135/68 90 04/07/21 12:00 04/07/21 15:13 04/07/21 15:00 04/07/21 15:13 04/07/21 15:00 General appearance: Present: no acute distress, well-nourished, obese, other (On the vent, on sedation) Results - Labs CBC & Chem 7: 04/07/21 06:08 04/07/21 06:08 Labs: Laboratory Last Values WBC 9.8 K/mm3 (4.5-11.0) 04/07/21 06:08 RBC 3.20 M/mm3 (3.65-5.03) L 04/07/21 06:08 Hgb 9.6 gm/dl (11.8-15.2) L 04/07/21 06:08 Hct 29.8 % (35.5-45.6) L 04/07/21 06:08 MCV 93 fl (84-94) 04/07/21 06:08 MCH 30 pg (28-32) 04/07/21 06:08 MCHC 32 % (32-34) 04/07/21 06:08 RDW 16.0 % (13.2-15.2) H 04/07/21 06:08 Plt Count 455 K/mm3 (140-440) H 04/07/21 06:08 Lymph % (Auto) 7.6 % (13.4-35.0) L 03/31/21 13:30 Reynolds % (Auto) 9.5 % (0.0-7.3) H 03/31/21 13:30 Eos % (Auto) 4.1 % (0.0-4.3) 03/31/21 13:30 Baso % (Auto) 0.5 % (0.0-1.8) 03/31/21 13:30 Lymph # (Auto) 0.6 K/mm3 (1.2-5.4) L 03/31/21 13:30 Reynolds # (Auto) 0.7 K/mm3 (0.0-0.8) 03/31/21 13:30 Eos # (Auto) 0.3 K/mm3 (0.0-0.4) 03/31/21 13:30 Baso # (Auto) 0.0 K/mm3 (0.0-0.1) 03/31/21 13:30 Add Manual Diff Complete 03/10/21 04:29 Total Counted 100 03/10/21 04:29 Seg Neutrophils % 78.3 % (40.0-70.0) H 03/31/21 13:30 Seg Neuts % (Manual) 94.0 % (40.0-70.0) H 03/10/21 04:29 Band Neutrophils % 0 % 03/10/21 04:29 Lymphocytes % (Manual) 1.0 % (13.4-35.0) L 03/10/21 04:29 Reactive Lymphs % (Man) 0 % 03/10/21 04:29 Monocytes % (Manual) 5.0 % (0.0-7.3) 03/10/21 04:29 Eosinophils % (Manual) 0 % (0.0-4.3) 03/10/21 04:29 Basophils % (Manual) 0 % (0.0-1.8) 03/10/21 04:29 Metamyelocytes % 0 % 03/10/21 04:29 Myelocytes % 0 % 03/10/21 04:29 Promyelocytes % 0 % 03/10/21 04:29 Blast Cells % 0 % 03/10/21 04:29 Nucleated RBC % 3.0 % (0.0-0.9) H 03/10/21 04:29 Seg Neutrophils # 5.8 K/mm3 (1.8-7.7) 03/31/21 13:30 Seg Neutrophils # Man 19.4 K/mm3 (1.8-7.7) H 03/10/21 04:29 Band Neutrophils # 0.0 K/mm3 03/10/21 04:29 Lymphocytes # (Manual) 0.2 K/mm3 (1.2-5.4) L 03/10/21 04:29 Abs React Lymphs (Man) 0.0 K/mm3 03/10/21 04:29 Monocytes # (Manual) 1.0 K/mm3 (0.0-0.8) H 03/10/21 04:29 Eosinophils # (Manual) 0.0 K/mm3 (0.0-0.4) 03/10/21 04:29 Basophils # (Manual) 0.0 K/mm3 (0.0-0.1) 03/10/21 04:29 Metamyelocytes # 0.0 K/mm3 03/10/21 04:29 Myelocytes # 0.0 K/mm3 03/10/21 04:29 Promyelocytes # 0.0 K/mm3 03/10/21 04:29 Blast Cells # 0.0 K/mm3 03/10/21 04:29 WBC Morphology Not Reportable 03/10/21 04:29 Hypersegmented Neuts Not Reportable 03/10/21 04:29 Hyposegmented Neuts Not Reportable 03/10/21 04:29 Hypogranular Neuts Not Reportable 03/10/21 04:29 Smudge Cells Not Reportable 03/10/21 04:29 Toxic Granulation Not Reportable 03/10/21 04:29 Toxic Vacuolation Not Reportable 03/10/21 04:29 Dohle Bodies Not Reportable 03/10/21 04:29 Pelger-Huet Anomaly Not Reportable 03/10/21 04:29 Mely Rods Not Reportable 03/10/21 04:29 Platelet Estimate Consistent w auto 03/10/21 04:29 Clumped Platelets Not Reportable 03/10/21 04:29 Plt Clumps, EDTA Not Reportable 03/10/21 04:29 Large Platelets Not Reportable 03/10/21 04:29 Giant Platelets Not Reportable 03/10/21 04:29 Platelet Satelliting Not Reportable 03/10/21 04:29 Plt Morphology Comment Not Reportable 03/10/21 04:29 RBC Morphology Normal 03/10/21 04:29 Dimorphic RBCs Not Reportable 03/10/21 04:29 Polychromasia Not Reportable 03/10/21 04:29 Hypochromasia Not Reportable 03/10/21 04:29 Poikilocytosis Not Reportable 03/10/21 04:29 Anisocytosis Not Reportable 03/10/21 04:29 Microcytosis Not Reportable 03/10/21 04:29 Macrocytosis Not Reportable 03/10/21 04:29 Spherocytes Not Reportable 03/10/21 04:29 Pappenheimer Bodies Not Reportable 03/10/21 04:29 Sickle Cells Not Reportable 03/10/21 04:29 Target Cells Not Reportable 03/10/21 04:29 Tear Drop Cells Not Reportable 03/10/21 04:29 Ovalocytes Not Reportable 03/10/21 04:29 Helmet Cells Not Reportable 03/10/21 04:29 [place] Bodies Not Reportable 03/10/21 04:29 [place] Rings Not Reportable 03/10/21 04:29 [place] Cells Not Reportable 03/10/21 04:29 Bite Cells Not Reportable 03/10/21 04:29 Crenated Cell Not Reportable 03/10/21 04:29 Elliptocytes Not Reportable 03/10/21 04:29 Acanthocytes (Spur) Not Reportable 03/10/21 04:29 Rouleaux Not Reportable 03/10/21 04:29 Hemoglobin C Crystals Not Reportable 03/10/21 04:29 Schistocytes Not Reportable 03/10/21 04:29 Malaria parasites Not Reportable 03/10/21 04:29 Shaheen Bodies Not Reportable 03/10/21 04:29 Hem Pathologist Commnt No 03/10/21 04:29 PT 13.6 Sec. (12.2-14.9) 04/06/21 15:36 INR 0.94 (0.87-1.13) 04/06/21 15:36 APTT 37.1 Sec. (24.2-36.6) H 04/06/21 15:36 D-Dimer 1359.12 ng/mlDDU (0-234) H 03/17/21 04:40 Heparin Anti-Xa Level < 0.10 U.I./ml (0.3-0.7) L 04/07/21 07:55 ABG pH 7.341 pH Units (7.350-7.450) L 04/06/21 11:50 POC ABG pCO2 57.4 mmHg (32.0-48.0) H 04/06/21 04:49 ABG pCO2 73.5 mm Hg 04/06/21 11:50 POC ABG pO2 55.1 mmHg (83-108) L 04/06/21 04:49 ABG pO2 108.9 mm Hg (80.0-90.0) H 04/06/21 11:50 POC ABG HCO3 36.2 04/06/21 04:49 ABG HCO3 38.9 mmol/L (20.0-26.0) H 04/06/21 11:50 ABG O2 Saturation 97.4 % (95.0-99.0) 04/06/21 11:50 ABG O2 Content 15.6 (0.0-44) 04/06/21 11:50 POC ABG Base Excess 10.0 04/06/21 04:49 ABG Base Excess 10.6 mmol/L (-2.0-3.0) H 04/06/21 11:50 ABG Hemoglobin 11.5 gm/dl (14.0-18.0) L 04/06/21 11:50 ABG Oxyhemoglobin 87.5 (94-98) L 04/06/21 04:49 ABG Carboxyhemoglobin 1.5 % (0.0-5.0) 04/06/21 11:50 ABG Methemoglobin 0.7 % (0.0-1.5) 04/06/21 11:50 ABG Sodium 134.2 mmol/L (136.0-145.0) L 03/12/21 21:54 ABG Potassium 4.9 mmol/L (3.40-4.50) H 03/12/21 21:54 ABG Chloride 99.0 mmol/L (98-107) 03/12/21 21:54 ABG Glucose 306 mg/dL (65-95) H 03/12/21 21:54 Oxyhemoglobin 95.3 % (95.0-99.0) 04/06/21 11:50 Carboxyhemoglobin 0.8 (0.5-1.5) 04/06/21 04:49 FiO2 70 % 04/06/21 11:50 FiO2 % 40.0 04/06/21 04:49 Sodium 140 mmol/L (137-145) 04/07/21 06:08 Potassium 4.9 mmol/L (3.6-5.0) 04/07/21 06:08 Chloride 98.3 mmol/L (98-107) 04/07/21 06:08 Carbon Dioxide 35 mmol/L (22-30) H 04/07/21 06:08 Anion Gap 12 mmol/L 04/07/21 06:08 BUN 17 mg/dL (9-20) 04/07/21 06:08 Creatinine 0.5 mg/dL (0.8-1.3) L 04/07/21 06:08 Estimated GFR > 60 ml/min 04/07/21 06:08 BUN/Creatinine Ratio 34 % 04/07/21 06:08 Glucose 216 mg/dL (75-100) H 04/07/21 06:08 POC Glucose 182 mg/dL (70-105) H 04/07/21 11:57 Lactic Acid 1.90 mmol/L (0.7-2.0) 03/08/21 23:51 Calcium 8.8 mg/dL (8.4-10.2) 04/07/21 06:08 Phosphorus 3.40 mg/dL (2.5-4.5) 04/07/21 06:08 Magnesium 2.10 mg/dL (1.7-2.3) 04/07/21 06:08 Ferritin 976.4 ng/mL (30.0-300.0) H 03/15/21 04:00 Total Bilirubin 0.20 mg/dL (0.1-1.2) 03/12/21 08:03 AST 10 units/L (5-40) 03/12/21 08:03 ALT 16 units/L (7-56) 03/12/21 08:03 Alkaline Phosphatase 77 units/L (35-129) 03/12/21 08:03 Lactate Dehydrogenase 630 units/L (91-180) H 03/15/21 06:06 C-Reactive Protein 0.40 mg/dL (0.00-1.30) 03/17/21 04:40 NT-Pro-B Natriuret Pep 1053 pg/mL (0-900) H 03/08/21 20:24 Total Protein 6.0 g/dL (6.3-8.2) L 03/12/21 08:03 Albumin 2.9 g/dL (3.9-5) L 03/12/21 08:03 Albumin/Globulin Ratio 0.9 % 03/12/21 08:03 Triglycerides 305 mg/dL (2-149) H 03/22/21 07:26 Procalcitonin 0.17 ng/mL (<0.15) 04/01/21 07:16 Arterial Blood Glucose 306 mg/dL (65-95) H 03/12/21 21:54 Arterial Blood Ionized Calcium 5.0 mg/dL (4.6-5.3) 03/12/21 21:54 Urine Color Yellow (Yellow) 03/09/21 04:10 Urine Turbidity Slightly-cloudy (Clear) 03/09/21 04:10 Urine pH 5.0 (5.0-7.0) 03/09/21 04:10 Ur Specific [place] 1.041 (1.003-1.030) H 03/09/21 04:10 Urine Protein 100 mg/dl mg/dL (Negative) 03/09/21 04:10 Urine Glucose (UA) Neg mg/dL (Negative) 03/09/21 04:10 Urine Ketones Neg mg/dL (Negative) 03/09/21 04:10 Urine Blood Mod (Negative) 03/09/21 04:10 Urine Nitrite Neg (Negative) 03/09/21 04:10 Urine Bilirubin Neg (Negative) 03/09/21 04:10 Urine Urobilinogen 2.0 mg/dL (<2.0) 03/09/21 04:10 Ur Leukocyte Esterase Neg (Negative) 03/09/21 04:10 Urine WBC (Auto) 4.0 /HPF (0.0-6.0) 03/09/21 04:10 Urine RBC (Auto) 1.0 /HPF (0.0-6.0) 03/09/21 04:10 Urine Bacteria (Auto) 1+ /HPF (Negative) 03/09/21 04:10 Urine Mucus Few /HPF 03/09/21 04:10 Coronavirus (PCR) Positive (Negative) A 03/09/21 08:00 Miscellaneous Test Flexitest 1 03/16/21 13:14 Good/IV: Voiding Method Indwelling Catheter Active Medications - Current Medications Current Medications: Generic Name Dose Route Start Last Admin Trade Name Freq PRN Reason Stop Dose Admin Acetaminophen 650 mg 03/09/21 01:26 04/07/21 03:43 Acetaminophen 325 Mg Tab PO 650 mg Q4H PRN Administration Pain MILD(1-3)/Fever >100.5/RAYO Albuterol 2.5 mg 03/09/21 01:26 03/18/21 21:06 Albuterol 2.5 Mg/3 Ml Nebu IH 2.5 mg Q4HRT PRN Administration Shortness Of Breath Amlodipine Besylate 5 mg 03/30/21 10:00 04/07/21 09:18 Amlodipine 5 Mg Tab PO 5 mg QDAY BLANCA Administration Arformoterol Tartrate 15 mcg 03/11/21 20:00 04/07/21 08:15 Arformoterol 15 Mcg/2 Ml Nebu IH 15 mcg Q12HRT BLANCA Administration Bisacodyl 10 mg 03/26/21 13:43 03/26/21 13:51 Bisacodyl 10 Mg Rect Supp MI 10 mg QDAY PRN Administration Constipation Budesonide 0.5 mg 04/06/21 20:00 04/07/21 08:13 Budesonide 0.5 Mg/2 Ml Nebu IH 0.5 mg Q12HRT BLANCA Administration Chlordiazepoxide HCl 75 mg 03/22/21 18:00 04/07/21 12:25 Chlordiazepoxide 25 Mg Cap PO 75 mg Q6HR BLANCA Administration Dextrose 0 ml 03/20/21 10:52 Dextrose 10% *Hypoglycemia IV PRN PRN Hypoglycemia Doxazosin Mesylate 1 mg 04/05/21 22:00 04/07/21 09:18 Doxazosin 1 Mg Tab PO 1 mg BID BLACNA Administration Famotidine 20 mg 03/12/21 22:00 04/07/21 09:20 Famotidine 20 Mg Tab FEEDTUBE 20 mg BID BLANCA Administration Fentanyl 1 applic 03/31/21 15:00 04/06/21 11:20 Fentanyl 75 Mcg/Hr Patch 72hr TD 1 applic Q3D BLANCA Administration Fentanyl 50 mcg 04/04/21 17:00 04/06/21 02:44 Fentanyl 100 Mcg/2 Ml Inj IV 50 mcg Q10MIN PRN Administration ANALGESIA Furosemide 20 mg 04/06/21 18:00 04/07/21 06:00 Furosemide 20 Mg/2 Ml Inj IV 04/07/21 18:01 20 mg 0600,1800 BLANCA Administration Haloperidol Lactate 5 mg 04/04/21 15:09 04/04/21 15:18 Haloperidol Lactate 5 Mg/1 Ml Inj IV 04/09/21 15:08 5 mg Q6H PRN Administration Agitation Heparin Sodium (Porcine) 4,900 unit 04/07/21 01:47 04/07/21 10:23 Heparin 10,000 Units/10 Ml Vial 40 unit/kg (4900 unit) 4,900 unit IV Administration Q6H PRN Anti-Xa Assay < 0.1 units/ml Hydralazine HCl 50 mg 03/23/21 14:26 04/07/21 15:13 Hydralazine 25 Mg Tab PO 50 mg Q8HR BLANCA Administration Hydrophilic Ointment 1 applic 03/10/21 15:39 Lip Therapy Vaseline TP Q2HR PRN Dry Lips Fentanyl Citrate 2,000 mcg in 100 mls @ 6.1 mls/hr 04/04/21 17:00 04/07/21 15:12 Fentanyl Drip Premix IV 2 mcg/kg/hr TITR BLANCA 12.2 mls/hr Administration Protocol 1 MCG/KG/HR Heparin Sodium/Sodium Chloride 25,000 unit in 500 mls @ 30 mls/hr 04/06/21 16:00 04/07/21 10:24 Heparin/ 0.45% Nacl-25,000 Unit/500 Ml IV 2,200 units/hr TITR BLANCA 44 mls/hr Titration Protocol 1,500 UNITS/HR Insulin Glargine 18 units 04/07/21 22:00 Insulin Glargine 100 Units/Ml SUB-Q QHS BLANCA Insulin Human Lispro 0 unit 03/11/21 18:00 04/07/21 12:15 Insulin Lispro 100 Unit/Ml SUB-Q 3 unit Q6HR [facility] Administration Protocol Metoprolol Tartrate 12.5 mg 03/21/21 22:00 04/07/21 09:18 Metoprolol Tartrate 25 Mg Tab PO 12.5 mg BID BLANCA Administration Midazolam HCl 2 mg 03/15/21 08:49 04/06/21 04:04 Midazolam 2 Mg/2 Ml Inj IV 2 mg Q2H PRN Administration VENT SYNCHRONY Multi-Ingred Cream/Lotion/Oil/Oint 1 applic 03/10/21 15:39 Mineral Oil/Petrolatum, White Ophth Oint 3.5 Gm OU Q4HR PRN Dry Eye(s) Ondansetron HCl 4 mg 03/09/21 01:26 Ondansetron 4 Mg/2 Ml Inj IV Q8H PRN Nausea And Vomiting Oxycodone HCl 5 mg 04/05/21 14:00 04/07/21 15:14 Oxycodone 5 Mg Tab PO 5 mg TID BLANCA Administration Phenyleph/Shark Oil/Min Oil/Petrol 1 applic 03/22/21 17:35 04/06/21 04:04 Pe/Mo/Pet,Wh 10 Applic/28 Gm Tube MI 1 applic Q6HR PRN Administration Hemorrhoids Polyethylene Glycol 17 gm 04/02/21 10:00 04/07/21 09:18 Polyethylene Glycol 3350 17 Gm Powder FEEDTUBE 17 gm QDAY BLANCA Administration Quetiapine Fumarate 200 mg 04/04/21 22:00 04/07/21 09:18 Quetiapine 200 Mg Tab PO 200 mg BID BLANCA Administration Quetiapine Fumarate 50 mg 04/05/21 14:00 04/07/21 09:19 Quetiapine 25 Mg Tab PO 50 mg BID BLANCA Administration Senna/Docusate Sodium 2 tab 04/02/21 10:00 04/07/21 09:18 Sennosides/Docusate Sodium 8.6/50 Mg Tab FEEDTUBE 2 tab BID BLANCA Administration Sodium Chloride 10 ml 03/09/21 10:00 04/07/21 09:20 Sodium Chloride 0.9% 10 Ml Flush Syringe IV 10 ml BID BLANCA Administration Sodium Chloride 10 ml 03/09/21 01:26 04/02/21 21:13 Sodium Chloride 0.9% 10 Ml Flush Syringe IV 10 ml PRN PRN Administration LINE FLUSH Sodium Chloride 10 ml 03/20/21 09:48 Sodium Chloride 0.9% 50 Ml Ivpb IV PRN PRN FLUSH Nutrition/Malnutrition Assess - Dietary Evaluation Nutrition/Malnutrition Findings: Nutrition Notes Start: 03/09/21 08:49 Freq: Status: Active Protocol: Document 04/07/21 14:55 BRIAN (Rec: 04/07/21 14:58 BRIAN [id number]) Nutrition Notes Initial or Follow up Reassessment Current Diagnosis Diabetes,Sepsis,Hypertension, Respiratory Failure Other Pertinent Diagnosis COVID-19, Bilateral Pneumonia. Current Diet TF-Glucerna 1.2 at 70 ml/hr Labs/Tests BG 216 Pertinent Medications Heparin gtt, Miralax, Senokot Height 5 ft 11 in Weight 122 kg [place] Body Weight (kg) 78.18 BMI 37.5 Weight Status Obese Subjective/Other Information Pt remains on vent support. Per RN, pt tolerating TF at goal rate. Percent of energy/protein needs met: 82% energy 78% pro Burn Absent Trauma Absent #1 Nutrition Diagnosis Inadequate oral intake Diagnosis Progress(for reassessment Continues documentation) Is patient on ventilator? Yes Is Patient Ambulatory and/or Out of Bed No REE-([facility]-confined to bed) [phone] Calculation Used for Recommendations 70-80% energy needs Additional Notes Energy needs: 7317-0859 kcal/ day Pro needs 1.3g/kg adjBW: 130g/ day Fluid needs 1ml/kcal Nutrition Intervention Nutrition Support: Continue Glucerna 1.2 at 70ml/ hr with 110ml water flush q4h. Kcal 2,016 Protein (gm) 101 Carbohydrates (gm) 192 Fat (gm) 101 Fluid (mL) 1,352 Fiber (gm) 27 Goal #1 TF tolerance Goal #2 TF to meet at least 75% energy and pro needs Follow-Up By: 04/14/21 Additional Comments F/U: stable TF, vent status, wt
[2021-04-07] MEDS: INSULIN GLARGINE 100 UNITS/ML SUB-Q SCH (21:42)
[2021-04-08] MEDS: chlordiazePOXIDE 25 MG CAP PO SCH ×4 (00:50→17:32)
[2021-04-08] MEDS: INSULIN LISPRO 100 UNIT/ML SUB-Q SCH ×4 (00:50→17:33)
[2021-04-08 04:27] LABS: Hematocrit 30.8 % (35.5-45.6); Hemoglobin 9.9 gm/dl (11.8-15.2); Mean Corpuscular HGB Conc 32 % (32-34); Mean Corpuscular Volume 95 fl (84-94); Platelet Count 487 K/mm3 (140-440); Red Blood Count 3.25 M/mm3 (3.65-5.03)
[2021-04-08 04:37] LABS: Blood Urea Nitrogen 18 mg/dL (9-20); Calcium 8.8 mg/dL (8.4-10.2); Hemolysis Index 158
[2021-04-08 04:38] LABS: BUN/Creatinine Ratio 36
--- NOTE | 2021-04-08 04:52 | XRay Report ---
CHEST 1 VIEW INDICATION / CLINICAL INFORMATION: resp distress. COMPARISON: Chest x-ray 04/06/2021 FINDINGS: SUPPORT DEVICES: Tracheostomy tube is stable. HEART / MEDIASTINUM: No significant abnormality. LUNGS / PLEURA: Diffuse bilateral lung densities remain present bilaterally more prevalent throughout the right lung with minimal change. If any change, mild interval worsening in the mid right lung is suggested. No pneumothorax. ADDITIONAL FINDINGS: No significant additional findings. IMPRESSION: 1. Minimal change in diffuse bilateral lung opacities right lung and left basilar opacities. Signer Name: Diaz Bella II, MD Signed: 04/08/2021 4:47 AM Workstation Name: [id number]
[2021-04-08] MEDS: hydrALAZINE 25 MG TAB PO SCH ×3 (05:49→21:04)
[2021-04-08] MEDS: HEPARIN/ 0.45% NACL DRIP 25,000 UNIT/500 ML BAG IV SCH ×2 (08:30→18:11)
[2021-04-08] MEDS ORDERED: INSULIN REGULAR, HUMAN 100 UNITS/1 ML IV ONE (09:00)
[2021-04-08] MEDS ORDERED: SODIUM POLYSTYRENE 15 GM/60 ML ORAL LIQD PO ONE (09:00)
[2021-04-08] MEDS: oxyCODONE 5 MG TAB PO SCH ×3 (09:10→21:00)
[2021-04-08] MEDS: ARFORMOTEROL 15 MCG/2 ML NEBU IH SCH ×2 (09:15→19:55)
[2021-04-08] MEDS: SENNOSIDES/DOCUSATE SODIUM 8.6/50 MG TAB FEEDTUBE SCH ×2 (09:21→21:04)
[2021-04-08] MEDS: POLYETHYLENE GLYCOL 3350 17 GM POWDER FEEDTUBE SCH (09:21)
[2021-04-08] MEDS: amLODIPine 5 MG TAB PO SCH (09:22)
[2021-04-08] MEDS: QUEtiapine 25 MG TAB PO SCH ×2 (09:22→21:06)
[2021-04-08] MEDS: FAMOTIDINE 20 MG TAB FEEDTUBE SCH ×2 (09:22→21:21)
[2021-04-08] MEDS: DOXAZOSIN 1 MG TAB PO SCH ×2 (09:22→21:21)
[2021-04-08] MEDS: METOPROLOL TARTRATE 25 MG TAB PO SCH ×2 (09:23→21:01)
[2021-04-08] MEDS: DEXTROSE 10% *Hypoglycemia IV ONE ×2 (09:30→11:31)
[2021-04-08] MEDS: QUEtiapine 200 MG TAB PO SCH ×2 (09:33→21:06)
[2021-04-08] MEDS: fentaNYL DRIP Premix 2,000 MCG/100 ML BAG IV SCH (12:20)
--- NOTE | 2021-04-08 13:10 | Progress Note ---
Assessment and Plan Acute hypoxemic respiratory failure, on continuous noninvasive ventilation COVID-19 infection Bilateral pneumonia History of diabetes Obesity Hypertension Leukocytosis Possible venous thromboembolic phenomena with significantly elevated D-dimers DM II Elevated serum inflammatory markers to include CRP levels, ferritin and LDH - Kayexalate 45 gms p.o. X 1 - repeat BMP in am - continue full anticoagulation for DVT acutely (will get heme/onc input) - repeat bilateral lower extremity dopplers negative - keep peep at 10 - follow clinically, monitor WBC / Fevers - continue LTAC evaluation - continue care as below otherwise; - continue Daily SAT and SBT assessment as tolerated - continue to wean supplemental oxygen for target O2 sat's > 90% acutely - VAP bundle addressed - continue lung protective strategies - continue bronchodilators with routiune trach care and pulmonary hygiene per RT - wean per pulmonary driven protocols otherwise - continue accuchecks with glycemic control per SSI (While critically ill target blood glucose of 140-180 mg/dL; avoid hypoglycemia) - sedation prn for target RASS 0 to -1 - avoid nephrotoxins, renally dose all medications - avoid benzodiazepine's, reduce the possibility of delirium - AB's per ID rec's - prn analgesia per pain score - Maintenance of sleep-wake cycle, avoid delirium - G.I. & VTE prophylaxis - PT/OT/ROM exercises - mobility protocols for pressure ulcer prophylaxis - Monitor hemodynamics closely - continue other care per attending / other consultants - discharge planning ongoing concurrently COVID SPECIFIC INTERVENTIONS - Remdesivir as per ID/Pulmonary developed protocols (received) - continue systemic steroids for severe COVID-19 infection empirically (Decadron) - follow repeat COVID tests results - zinc and vitamin C supplementation - Monitor inflammatory markers per facility protocol - ferritin, Ddimer, CRP - therapeutic anticoagulation per system Protocol based on d-dimer and clinical considerations (treatment dose) - contact and airborne isolation discontinued .... Re-evaluate in am & prn CONDITION: CRITICAL PROGNOSIS: GUARDED CODE STATUS: FULL CODE The high probability of a clinically significant, sudden or life-threatening deterioration of the [respiratory, cardiovascular & hematologic] system(s) required my full and direct attention, intervention and personal management. The aggregate critical care time was [32] minutes without overlap. Time includes spent on; [x] Data Review and interpretation [x] Patient assessment and monitoring of vital signs [x] Documentation [x] Medication orders and management Subjective Date of service: 04/08/21 Principal diagnosis: COVID-19 infection; DM II; Bilateral pneumonia; Obesity; HTN Interval history: Patient is seen today for: Acute hypoxemic respiratory failure; COVID-19 infection; DM II; Bilateral pneumonia; Obesity; HTN Seen and examined at bedside; 24hour events reviewed; nursing and respiratory care staff consulted; no adverse overnight events reported to me; resting in bed; remains on MVS; FiO2 at 65% with peep at 10; no emesis or overt aspiration; K+ elevated at 5.8; no gross bleeding Objective Vital Signs - 12hr 04/08/21 04/08/21 04/08/21 02:00 02:53 03:00 Temperature 98.4 F Pulse Rate 110 H 110 H Pulse Rate [ Bilateral Throughout] Pulse Rate [ From Monitor] Respiratory 18 18 Rate Respiratory Rate [Bilateral Throughout] Blood Pressure 122/64 126/72 O2 Sat by Pulse 95 90 Oximetry O2 Sat by Pulse Oximetry [ Assessment] 04/08/21 04/08/21 04/08/21 04:00 04:39 05:00 Temperature Pulse Rate 115 H 115 H Pulse Rate [ Bilateral Throughout] Pulse Rate [ 115 H From Monitor] Respiratory 22 18 Rate Respiratory Rate [Bilateral Throughout] Blood Pressure 132/72 132/63 O2 Sat by Pulse 94 95 94 Oximetry O2 Sat by Pulse Oximetry [ Assessment] 04/08/21 04/08/21 04/08/21 06:00 07:00 08:00 Temperature 98.0 F Pulse Rate 116 H 117 H 119 H Pulse Rate [ Bilateral Throughout] Pulse Rate [ From Monitor] Respiratory 18 23 22 Rate Respiratory Rate [Bilateral Throughout] Blood Pressure 122/60 119/57 126/55 O2 Sat by Pulse 96 95 96 Oximetry O2 Sat by Pulse Oximetry [ Assessment] 04/08/21 04/08/21 04/08/21 09:00 09:05 09:08 Temperature Pulse Rate 120 H 121 H Pulse Rate [ Bilateral Throughout] Pulse Rate [ From Monitor] Respiratory 24 Rate Respiratory Rate [Bilateral Throughout] Blood Pressure 118/58 118/58 O2 Sat by Pulse 95 96 Oximetry O2 Sat by Pulse 96 Oximetry [ Assessment] 04/08/21 04/08/21 04/08/21 09:15 09:22 09:23 Temperature Pulse Rate 126 H 126 H Pulse Rate [ 125 H Bilateral Throughout] Pulse Rate [ From Monitor] Respiratory Rate Respiratory 33 H Rate [Bilateral Throughout] Blood Pressure 118/58 118/58 O2 Sat by Pulse Oximetry O2 Sat by Pulse Oximetry [ Assessment] 04/08/21 04/08/21 04/08/21 10:00 11:00 12:00 Temperature 99.9 F H Pulse Rate 120 H 117 H Pulse Rate [ Bilateral Throughout] Pulse Rate [ From Monitor] Respiratory 24 23 Rate Respiratory Rate [Bilateral Throughout] Blood Pressure 111/64 123/57 O2 Sat by Pulse 95 96 Oximetry O2 Sat by Pulse Oximetry [ Assessment] 04/08/21 13:05 Temperature Pulse Rate 118 H Pulse Rate [ Bilateral Throughout] Pulse Rate [ From Monitor] Respiratory 28 H Rate Respiratory Rate [Bilateral Throughout] Blood Pressure 119/59 O2 Sat by Pulse 96 Oximetry O2 Sat by Pulse Oximetry [ Assessment] Constitutional: agitated, appears uncomfortable, other (elderly obese male with mildly increased respiratory effort at rest) Eyes: non-icteric ENT: oropharynx moist, other (+ midline tracheostomy) Neck: supple, no lymphadenopathy, no JVD, other (large circumference) Effort: mildly labored Ascultation: Bilateral: diminished breath sounds, rhonchi Percussion: Bilateral: not dull Cardiovascular: regular rate and rhythm, other (tachycardia, S1,S2) Gastrointestinal: normoactive bowel sounds, soft, non-tender, non-distended (protuberant) Integumentary: normal Extremities: no cyanosis, pulses normal, no ischemia or petechiae, edema (upper extremities), other Neurologic: non-focal exam (grossly), pupils equal and round, other (sedated) Psychiatric: other (unable to assess re: AMS) CBC and BMP: 04/08/21 04:00 04/08/21 03:57 ABG, PT/INR, D-dimer: ABG ABG pH 7.341 pH Units (7.350-7.450) L 04/06/21 11:50 POC ABG pCO2 57.4 mmHg (32.0-48.0) H 04/06/21 04:49 ABG pCO2 73.5 mm Hg 04/06/21 11:50 POC ABG pO2 55.1 mmHg (83-108) L 04/06/21 04:49 ABG pO2 108.9 mm Hg (80.0-90.0) H 04/06/21 11:50 POC ABG HCO3 36.2 04/06/21 04:49 ABG O2 Saturation 97.4 % (95.0-99.0) 04/06/21 11:50 PT/INR, D-dimer PT 13.6 Sec. (12.2-14.9) 04/06/21 15:36 INR 0.94 (0.87-1.13) 04/06/21 15:36 D-Dimer 1359.12 ng/mlDDU (0-234) H 03/17/21 04:40 Abnormal lab findings: Abnormal Labs 03/08/21 03/08/21 03/08/21 20:24 20:24 20:24 WBC 22.6 H RBC 5.44 H Hgb 15.7 H Hct 49.2 H MCV MCHC RDW Plt Count Lymph % (Auto) [place] % (Auto) Lymph # (Auto) [place] # (Auto) Seg Neutrophils % Seg Neuts % (Manual) 83.0 H Lymphocytes % (Manual) 9.0 L Monocytes % (Manual) 8.0 H Nucleated RBC % Seg Neutrophils # Seg Neutrophils # Man 18.8 H Lymphocytes # (Manual) Monocytes # (Manual) 1.8 H PT 16.1 H INR 1.17 H APTT D-Dimer > 35292 H Heparin Anti-Xa Level ABG pH POC ABG pCO2 POC ABG pO2 ABG pO2 ABG HCO3 ABG O2 Saturation ABG Base Excess ABG Hemoglobin ABG Oxyhemoglobin ABG Sodium ABG Potassium ABG Glucose Oxyhemoglobin Sodium 136 L Potassium Chloride 93.9 L Carbon Dioxide BUN 29 H Creatinine Glucose 208 H POC Glucose Lactic Acid Calcium Phosphorus Magnesium Ferritin Lactate Dehydrogenase 624 H C-Reactive Protein 18.00 H NT-Pro-B Natriuret Pep 1053 H Total Protein Albumin Triglycerides Arterial Blood Glucose Ur Specific [place] Coronavirus (PCR) 03/08/21 03/08/21 03/09/21 20:24 20:24 04:10 WBC RBC Hgb Hct MCV MCHC RDW Plt Count Lymph % (Auto) [place] % (Auto) Lymph # (Auto) [place] # (Auto) Seg Neutrophils % Seg Neuts % (Manual) Lymphocytes % (Manual) Monocytes % (Manual) Nucleated RBC % Seg Neutrophils # Seg Neutrophils # Man Lymphocytes # (Manual) Monocytes # (Manual) PT INR APTT D-Dimer Heparin Anti-Xa Level ABG pH POC ABG pCO2 POC ABG pO2 ABG pO2 ABG HCO3 ABG O2 Saturation ABG Base Excess ABG Hemoglobin ABG Oxyhemoglobin ABG Sodium ABG Potassium ABG Glucose Oxyhemoglobin Sodium Potassium Chloride Carbon Dioxide BUN Creatinine Glucose POC Glucose Lactic Acid 2.10 H* Calcium Phosphorus Magnesium Ferritin 877.5 H Lactate Dehydrogenase C-Reactive Protein NT-Pro-B Natriuret Pep Total Protein Albumin Triglycerides Arterial Blood Glucose Ur Specific [place] 1.041 H Coronavirus (PCR) 03/09/21 03/09/21 03/09/21 07:46 08:00 13:01 WBC RBC Hgb Hct MCV MCHC RDW Plt Count Lymph % (Auto) [place] % (Auto) Lymph # (Auto) [place] # (Auto) Seg Neutrophils % Seg Neuts % (Manual) Lymphocytes % (Manual) Monocytes % (Manual) Nucleated RBC % Seg Neutrophils # Seg Neutrophils # Man Lymphocytes # (Manual) Monocytes # (Manual) PT INR APTT D-Dimer Heparin Anti-Xa Level ABG pH POC ABG pCO2 POC ABG pO2 ABG pO2 ABG HCO3 ABG O2 Saturation ABG Base Excess ABG Hemoglobin ABG Oxyhemoglobin ABG Sodium ABG Potassium ABG Glucose Oxyhemoglobin Sodium Potassium Chloride Carbon Dioxide BUN Creatinine Glucose POC Glucose 191 H 182 H Lactic Acid Calcium Phosphorus Magnesium Ferritin Lactate Dehydrogenase C-Reactive Protein NT-Pro-B Natriuret Pep Total Protein Albumin Triglycerides Arterial Blood Glucose Ur Specific [place] Coronavirus (PCR) Positive A 03/09/21 03/09/21 03/09/21 15:19 17:48 18:10 WBC RBC Hgb Hct MCV MCHC RDW Plt Count Lymph % (Auto) [place] % (Auto) Lymph # (Auto) [place] # (Auto) Seg Neutrophils % Seg Neuts % (Manual) Lymphocytes % (Manual) Monocytes % (Manual) Nucleated RBC % Seg Neutrophils # Seg Neutrophils # Man Lymphocytes # (Manual) Monocytes # (Manual) PT INR APTT D-Dimer Heparin Anti-Xa Level ABG pH POC ABG pCO2 POC ABG pO2 ABG pO2 47.3 L ABG HCO3 26.3 H ABG O2 Saturation 83.7 L ABG Base Excess ABG Hemoglobin ABG Oxyhemoglobin ABG Sodium ABG Potassium ABG Glucose Oxyhemoglobin 82.1 L Sodium Potassium Chloride Carbon Dioxide BUN 29 H Creatinine Glucose 214 H POC Glucose 194 H Lactic Acid Calcium Phosphorus Magnesium Ferritin Lactate Dehydrogenase C-Reactive Protein NT-Pro-B Natriuret Pep Total Protein Albumin 3.4 L Triglycerides Arterial Blood Glucose Ur Specific [place] Coronavirus (PCR) 03/09/21 03/10/21 03/10/21 20:40 04:29 04:29 WBC 20.6 H RBC 5.07 H Hgb Hct 46.2 H MCV MCHC RDW Plt Count Lymph % (Auto) [place] % (Auto) Lymph # (Auto) [place] # (Auto) Seg Neutrophils % Seg Neuts % (Manual) 94.0 H Lymphocytes % (Manual) 1.0 L Monocytes % (Manual) Nucleated RBC % 3.0 H Seg Neutrophils # Seg Neutrophils # Man 19.4 H Lymphocytes # (Manual) 0.2 L Monocytes # (Manual) 1.0 H PT INR APTT D-Dimer Heparin Anti-Xa Level ABG pH POC ABG pCO2 POC ABG pO2 ABG pO2 ABG HCO3 ABG O2 Saturation ABG Base Excess ABG Hemoglobin ABG Oxyhemoglobin ABG Sodium ABG Potassium ABG Glucose Oxyhemoglobin Sodium Potassium Chloride Carbon Dioxide BUN 29 H Creatinine Glucose 188 H POC Glucose 176 H Lactic Acid Calcium Phosphorus Magnesium Ferritin Lactate Dehydrogenase C-Reactive Protein NT-Pro-B Natriuret Pep Total Protein Albumin 3.3 L Triglycerides Arterial Blood Glucose Ur Specific [place] Coronavirus (PCR) 03/10/21 03/10/21 03/10/21 05:22 10:27 15:25 WBC RBC Hgb Hct MCV MCHC RDW Plt Count Lymph % (Auto) [place] % (Auto) Lymph # (Auto) [place] # (Auto) Seg Neutrophils % Seg Neuts % (Manual) Lymphocytes % (Manual) Monocytes % (Manual) Nucleated RBC % Seg Neutrophils # Seg Neutrophils # Man Lymphocytes # (Manual) Monocytes # (Manual) PT INR APTT D-Dimer Heparin Anti-Xa Level ABG pH 7.488 H 7.488 H POC ABG pCO2 POC ABG pO2 ABG pO2 47.7 L 50.5 L ABG HCO3 ABG O2 Saturation 86.2 L 87.9 L ABG Base Excess ABG Hemoglobin ABG Oxyhemoglobin ABG Sodium ABG Potassium ABG Glucose Oxyhemoglobin 84.6 L 86.2 L Sodium Potassium Chloride Carbon Dioxide BUN Creatinine Glucose POC Glucose 155 H Lactic Acid Calcium Phosphorus Magnesium Ferritin Lactate Dehydrogenase C-Reactive Protein NT-Pro-B Natriuret Pep Total Protein Albumin Triglycerides Arterial Blood Glucose Ur Specific [place] Coronavirus (PCR) 03/10/21 03/10/21 03/11/21 18:10 18:55 00:07 WBC RBC Hgb Hct MCV MCHC RDW Plt Count Lymph % (Auto) [place] % (Auto) Lymph # (Auto) [place] # (Auto) Seg Neutrophils % Seg Neuts % (Manual) Lymphocytes % (Manual) Monocytes % (Manual) Nucleated RBC % Seg Neutrophils # Seg Neutrophils # Man Lymphocytes # (Manual) Monocytes # (Manual) PT INR APTT D-Dimer Heparin Anti-Xa Level ABG pH 7.343 L POC ABG pCO2 POC ABG pO2 ABG pO2 60.4 L ABG HCO3 27.9 H ABG O2 Saturation 88.7 L ABG Base Excess ABG Hemoglobin ABG Oxyhemoglobin ABG Sodium ABG Potassium ABG Glucose Oxyhemoglobin 86.9 L Sodium Potassium Chloride Carbon Dioxide BUN Creatinine Glucose POC Glucose 187 H 139 H Lactic Acid Calcium Phosphorus Magnesium Ferritin Lactate Dehydrogenase C-Reactive Protein NT-Pro-B Natriuret Pep Total Protein Albumin Triglycerides Arterial Blood Glucose Ur Specific [place] Coronavirus (PCR) 03/11/21 03/11/21 03/11/21 02:09 04:28 08:06 WBC RBC Hgb Hct MCV MCHC RDW Plt Count Lymph % (Auto) [place] % (Auto) Lymph # (Auto) [place] # (Auto) Seg Neutrophils % Seg Neuts % (Manual) Lymphocytes % (Manual) Monocytes % (Manual) Nucleated RBC % Seg Neutrophils # Seg Neutrophils # Man Lymphocytes # (Manual) Monocytes # (Manual) PT INR APTT D-Dimer Heparin Anti-Xa Level ABG pH 7.277 L POC ABG pCO2 55.9 H POC ABG pO2 54.4 L ABG pO2 ABG HCO3 ABG O2 Saturation ABG Base Excess ABG Hemoglobin ABG Oxyhemoglobin 83.0 L ABG Sodium ABG Potassium 4.8 H ABG Glucose 180 H Oxyhemoglobin Sodium Potassium Chloride Carbon Dioxide BUN 38 H Creatinine Glucose 249 H POC Glucose 278 H Lactic Acid Calcium Phosphorus Magnesium Ferritin Lactate Dehydrogenase C-Reactive Protein NT-Pro-B Natriuret Pep Total Protein Albumin 3.2 L Triglycerides Arterial Blood Glucose 180 H Ur Specific [place] Coronavirus (PCR) 03/11/21 03/11/21 03/11/21 11:29 15:06 15:48 WBC RBC Hgb Hct MCV MCHC RDW Plt Count Lymph % (Auto) [place] % (Auto) Lymph # (Auto) [place] # (Auto) Seg Neutrophils % Seg Neuts % (Manual) Lymphocytes % (Manual) Monocytes % (Manual) Nucleated RBC % Seg Neutrophils # Seg Neutrophils # Man Lymphocytes # (Manual) Monocytes # (Manual) PT INR APTT D-Dimer Heparin Anti-Xa Level ABG pH 7.260 L POC ABG pCO2 POC ABG pO2 ABG pO2 53.5 L ABG HCO3 29.5 H ABG O2 Saturation 84.0 L ABG Base Excess ABG Hemoglobin ABG Oxyhemoglobin ABG Sodium ABG Potassium ABG Glucose Oxyhemoglobin 82.3 L Sodium Potassium Chloride Carbon Dioxide BUN Creatinine Glucose POC Glucose 288 H 295 H Lactic Acid Calcium Phosphorus Magnesium Ferritin Lactate Dehydrogenase C-Reactive Protein NT-Pro-B Natriuret Pep Total Protein Albumin Triglycerides Arterial Blood Glucose Ur Specific [place] Coronavirus (PCR) 03/12/21 03/12/21 03/12/21 00:01 05:24 08:03 WBC RBC Hgb Hct MCV MCHC RDW Plt Count Lymph % (Auto) [place] % (Auto) Lymph # (Auto) [place] # (Auto) Seg Neutrophils % Seg Neuts % (Manual) Lymphocytes % (Manual) Monocytes % (Manual) Nucleated RBC % Seg Neutrophils # Seg Neutrophils # Man Lymphocytes # (Manual) Monocytes # (Manual) PT INR APTT D-Dimer Heparin Anti-Xa Level ABG pH POC ABG pCO2 POC ABG pO2 ABG pO2 ABG HCO3 ABG O2 Saturation ABG Base Excess ABG Hemoglobin ABG Oxyhemoglobin ABG Sodium ABG Potassium ABG Glucose Oxyhemoglobin Sodium 135 L Potassium Chloride Carbon Dioxide BUN 48 H Creatinine Glucose 358 H POC Glucose 304 H 310 H Lactic Acid Calcium Phosphorus Magnesium Ferritin Lactate Dehydrogenase C-Reactive Protein NT-Pro-B Natriuret Pep Total Protein 6.0 L Albumin 2.9 L Triglycerides Arterial Blood Glucose Ur Specific [place] Coronavirus (PCR) 03/12/21 03/12/21 03/12/21 08:03 10:43 11:31 WBC 14.6 H RBC Hgb Hct MCV MCHC RDW Plt Count Lymph % (Auto) [place] % (Auto) Lymph # (Auto) [place] # (Auto) Seg Neutrophils % Seg Neuts % (Manual) Lymphocytes % (Manual) Monocytes % (Manual) Nucleated RBC % Seg Neutrophils # Seg Neutrophils # Man Lymphocytes # (Manual) Monocytes # (Manual) PT INR APTT D-Dimer Heparin Anti-Xa Level ABG pH 7.248 L POC ABG pCO2 POC ABG pO2 ABG pO2 73.7 L ABG HCO3 32.0 H ABG O2 Saturation 93.9 L ABG Base Excess ABG Hemoglobin ABG Oxyhemoglobin ABG Sodium ABG Potassium ABG Glucose Oxyhemoglobin 92.1 L Sodium Potassium Chloride Carbon Dioxide BUN Creatinine Glucose POC Glucose 359 H Lactic Acid Calcium Phosphorus Magnesium Ferritin Lactate Dehydrogenase C-Reactive Protein NT-Pro-B Natriuret Pep Total Protein Albumin Triglycerides Arterial Blood Glucose Ur Specific [place] Coronavirus (PCR) 03/12/21 03/12/21 03/13/21 17:20 21:54 00:02 WBC RBC Hgb Hct MCV MCHC RDW Plt Count Lymph % (Auto) [place] % (Auto) Lymph # (Auto) [place] # (Auto) Seg Neutrophils % Seg Neuts % (Manual) Lymphocytes % (Manual) Monocytes % (Manual) Nucleated RBC % Seg Neutrophils # Seg Neutrophils # Man Lymphocytes # (Manual) Monocytes # (Manual) PT INR APTT D-Dimer Heparin Anti-Xa Level ABG pH 7.238 L POC ABG pCO2 71.9 H POC ABG pO2 53.6 L ABG pO2 ABG HCO3 ABG O2 Saturation ABG Base Excess ABG Hemoglobin ABG Oxyhemoglobin 84.8 L ABG Sodium 134.2 L ABG Potassium 4.9 H ABG Glucose 306 H Oxyhemoglobin Sodium Potassium Chloride Carbon Dioxide BUN Creatinine Glucose POC Glucose 374 H 308 H Lactic Acid Calcium Phosphorus Magnesium Ferritin Lactate Dehydrogenase C-Reactive Protein NT-Pro-B Natriuret Pep Total Protein Albumin Triglycerides Arterial Blood Glucose 306 H Ur Specific [place] Coronavirus (PCR) 03/13/21 03/13/21 03/13/21 05:22 05:44 05:44 WBC 13.9 H RBC Hgb Hct MCV MCHC RDW Plt Count Lymph % (Auto) [place] % (Auto) Lymph # (Auto) [place] # (Auto) Seg Neutrophils % Seg Neuts % (Manual) Lymphocytes % (Manual) Monocytes % (Manual) Nucleated RBC % Seg Neutrophils # Seg Neutrophils # Man Lymphocytes # (Manual) Monocytes # (Manual) PT INR APTT D-Dimer 3567.97 H Heparin Anti-Xa Level ABG pH POC ABG pCO2 POC ABG pO2 ABG pO2 ABG HCO3 ABG O2 Saturation ABG Base Excess ABG Hemoglobin ABG Oxyhemoglobin ABG Sodium ABG Potassium ABG Glucose Oxyhemoglobin Sodium Potassium Chloride Carbon Dioxide BUN Creatinine Glucose POC Glucose 316 H Lactic Acid Calcium Phosphorus Magnesium Ferritin Lactate Dehydrogenase C-Reactive Protein NT-Pro-B Natriuret Pep Total Protein Albumin Triglycerides Arterial Blood Glucose Ur Specific [place] Coronavirus (PCR) 03/13/21 03/13/21 03/13/21 05:44 05:44 11:15 WBC RBC Hgb Hct MCV MCHC RDW Plt Count Lymph % (Auto) [place] % (Auto) Lymph # (Auto) [place] # (Auto) Seg Neutrophils % Seg Neuts % (Manual) Lymphocytes % (Manual) Monocytes % (Manual) Nucleated RBC % Seg Neutrophils # Seg Neutrophils # Man Lymphocytes # (Manual) Monocytes # (Manual) PT INR APTT D-Dimer Heparin Anti-Xa Level ABG pH 7.310 L POC ABG pCO2 POC ABG pO2 ABG pO2 52.3 L ABG HCO3 34.1 H ABG O2 Saturation 86.8 L ABG Base Excess 5.5 H ABG Hemoglobin 13.8 L ABG Oxyhemoglobin ABG Sodium ABG Potassium ABG Glucose Oxyhemoglobin 85.1 L Sodium Potassium Chloride Carbon Dioxide BUN Creatinine Glucose POC Glucose Lactic Acid Calcium Phosphorus Magnesium Ferritin 858.7 H Lactate Dehydrogenase 348 H C-Reactive Protein 2.80 H NT-Pro-B Natriuret Pep Total Protein Albumin Triglycerides Arterial Blood Glucose Ur Specific [place] Coronavirus (PCR) 03/13/21 03/13/21 03/13/21 11:21 15:47 19:23 WBC RBC Hgb Hct MCV MCHC RDW Plt Count Lymph % (Auto) [place] % (Auto) Lymph # (Auto) [place] # (Auto) Seg Neutrophils % Seg Neuts % (Manual) Lymphocytes % (Manual) Monocytes % (Manual) Nucleated RBC % Seg Neutrophils # Seg Neutrophils # Man Lymphocytes # (Manual) Monocytes # (Manual) PT INR APTT D-Dimer Heparin Anti-Xa Level ABG pH POC ABG pCO2 POC ABG pO2 ABG pO2 ABG HCO3 ABG O2 Saturation ABG Base Excess ABG Hemoglobin ABG Oxyhemoglobin ABG Sodium ABG Potassium ABG Glucose Oxyhemoglobin Sodium 136 L Potassium 5.9 H Chloride Carbon Dioxide BUN 50 H Creatinine Glucose 397 H POC Glucose 322 H 317 H Lactic Acid Calcium Phosphorus Magnesium Ferritin Lactate Dehydrogenase C-Reactive Protein NT-Pro-B Natriuret Pep Total Protein Albumin Triglycerides Arterial Blood Glucose Ur Specific [place] Coronavirus (PCR) 03/13/21 03/14/21 03/14/21 23:46 05:32 05:50 WBC 11.6 H RBC Hgb Hct MCV MCHC RDW Plt Count Lymph % (Auto) [place] % (Auto) Lymph # (Auto) [place] # (Auto) Seg Neutrophils % Seg Neuts % (Manual) Lymphocytes % (Manual) Monocytes % (Manual) Nucleated RBC % Seg Neutrophils # Seg Neutrophils # Man Lymphocytes # (Manual) Monocytes # (Manual) PT INR APTT D-Dimer Heparin Anti-Xa Level ABG pH POC ABG pCO2 POC ABG pO2 ABG pO2 ABG HCO3 ABG O2 Saturation ABG Base Excess ABG Hemoglobin ABG Oxyhemoglobin ABG Sodium ABG Potassium ABG Glucose Oxyhemoglobin Sodium Potassium Chloride Carbon Dioxide BUN Creatinine Glucose POC Glucose 332 H 316 H Lactic Acid Calcium Phosphorus Magnesium Ferritin Lactate Dehydrogenase C-Reactive Protein NT-Pro-B Natriuret Pep Total Protein Albumin Triglycerides Arterial Blood Glucose Ur Specific [place] Coronavirus (PCR) 03/14/21 03/14/21 03/14/21 05:50 11:33 16:53 WBC RBC Hgb Hct MCV MCHC RDW Plt Count Lymph % (Auto) [place] % (Auto) Lymph # (Auto) [place] # (Auto) Seg Neutrophils % Seg Neuts % (Manual) Lymphocytes % (Manual) Monocytes % (Manual) Nucleated RBC % Seg Neutrophils # Seg Neutrophils # Man Lymphocytes # (Manual) Monocytes # (Manual) PT INR APTT D-Dimer Heparin Anti-Xa Level ABG pH POC ABG pCO2 POC ABG pO2 ABG pO2 ABG HCO3 ABG O2 Saturation ABG Base Excess ABG Hemoglobin ABG Oxyhemoglobin ABG Sodium ABG Potassium ABG Glucose Oxyhemoglobin Sodium Potassium 5.9 H Chloride Carbon Dioxide 31 H BUN 48 H Creatinine Glucose 380 H POC Glucose 315 H 235 H Lactic Acid Calcium Phosphorus Magnesium 3.40 H Ferritin Lactate Dehydrogenase C-Reactive Protein NT-Pro-B Natriuret Pep Total Protein Albumin Triglycerides Arterial Blood Glucose Ur Specific [place] Coronavirus (PCR) 03/14/21 03/14/21 03/15/21 18:34 23:27 01:22 WBC RBC Hgb Hct 46.3 H MCV MCHC RDW Plt Count Lymph % (Auto) [place] % (Auto) Lymph # (Auto) [place] # (Auto) Seg Neutrophils % Seg Neuts % (Manual) Lymphocytes % (Manual) Monocytes % (Manual) Nucleated RBC % Seg Neutrophils # Seg Neutrophils # Man Lymphocytes # (Manual) Monocytes # (Manual) PT INR APTT D-Dimer Heparin Anti-Xa Level ABG pH POC ABG pCO2 POC ABG pO2 ABG pO2 ABG HCO3 ABG O2 Saturation ABG Base Excess ABG Hemoglobin ABG Oxyhemoglobin ABG Sodium ABG Potassium ABG Glucose Oxyhemoglobin Sodium 146 H Potassium Chloride Carbon Dioxide 34 H BUN 49 H Creatinine Glucose 285 H POC Glucose 203 H Lactic Acid Calcium Phosphorus Magnesium Ferritin Lactate Dehydrogenase C-Reactive Protein NT-Pro-B Natriuret Pep Total Protein Albumin Triglycerides Arterial Blood Glucose Ur Specific [place] Coronavirus (PCR) 03/15/21 03/15/21 03/15/21 04:00 06:06 06:06 WBC RBC Hgb Hct MCV MCHC RDW Plt Count Lymph % (Auto) [place] % (Auto) Lymph # (Auto) [place] # (Auto) Seg Neutrophils % Seg Neuts % (Manual) Lymphocytes % (Manual) Monocytes % (Manual) Nucleated RBC % Seg Neutrophils # Seg Neutrophils # Man Lymphocytes # (Manual) Monocytes # (Manual) PT INR APTT D-Dimer 1781.79 H Heparin Anti-Xa Level ABG pH POC ABG pCO2 POC ABG pO2 ABG pO2 ABG HCO3 ABG O2 Saturation ABG Base Excess ABG Hemoglobin ABG Oxyhemoglobin ABG Sodium ABG Potassium ABG Glucose Oxyhemoglobin Sodium 148 H Potassium 5.7 H D Chloride 108.0 H Carbon Dioxide 31 H BUN 46 H Creatinine Glucose 139 H POC Glucose Lactic Acid Calcium Phosphorus 4.80 H D Magnesium 3.00 H Ferritin 976.4 H Lactate Dehydrogenase 630 H C-Reactive Protein NT-Pro-B Natriuret Pep Total Protein Albumin Triglycerides Arterial Blood Glucose Ur Specific [place] Coronavirus (PCR) 03/15/21 03/15/21 03/15/21 11:56 14:05 17:09 WBC RBC Hgb Hct MCV MCHC RDW Plt Count Lymph % (Auto) [place] % (Auto) Lymph # (Auto) [place] # (Auto) Seg Neutrophils % Seg Neuts % (Manual) Lymphocytes % (Manual) Monocytes % (Manual) Nucleated RBC % Seg Neutrophils # Seg Neutrophils # Man Lymphocytes # (Manual) Monocytes # (Manual) PT INR APTT D-Dimer Heparin Anti-Xa Level ABG pH POC ABG pCO2 POC ABG pO2 ABG pO2 52.1 L ABG HCO3 36.6 H ABG O2 Saturation 87.6 L ABG Base Excess 9.5 H ABG Hemoglobin ABG Oxyhemoglobin ABG Sodium ABG Potassium ABG Glucose Oxyhemoglobin 85.7 L Sodium Potassium Chloride Carbon Dioxide BUN Creatinine Glucose POC Glucose 219 H 263 H Lactic Acid Calcium Phosphorus Magnesium Ferritin Lactate Dehydrogenase C-Reactive Protein NT-Pro-B Natriuret Pep Total Protein Albumin Triglycerides Arterial Blood Glucose Ur Specific [place] Coronavirus (PCR) 03/16/21 03/16/21 03/16/21 00:32 04:11 04:11 WBC 11.9 H RBC Hgb Hct MCV MCHC 30 L RDW Plt Count Lymph % (Auto) [place] % (Auto) Lymph # (Auto) [place] # (Auto) Seg Neutrophils % Seg Neuts % (Manual) Lymphocytes % (Manual) Monocytes % (Manual) Nucleated RBC % Seg Neutrophils # Seg Neutrophils # Man Lymphocytes # (Manual) Monocytes # (Manual) PT INR APTT D-Dimer Heparin Anti-Xa Level ABG pH POC ABG pCO2 POC ABG pO2 ABG pO2 ABG HCO3 ABG O2 Saturation ABG Base Excess ABG Hemoglobin ABG Oxyhemoglobin ABG Sodium ABG Potassium ABG Glucose Oxyhemoglobin Sodium 151 H Potassium Chloride Carbon Dioxide 35 H BUN 48 H Creatinine Glucose 152 H POC Glucose 165 H Lactic Acid Calcium Phosphorus Magnesium Ferritin Lactate Dehydrogenase C-Reactive Protein NT-Pro-B Natriuret Pep Total Protein Albumin Triglycerides Arterial Blood Glucose Ur Specific [place] Coronavirus (PCR) 03/16/21 03/16/21 03/16/21 04:11 05:26 11:35 WBC RBC Hgb Hct MCV MCHC RDW Plt Count Lymph % (Auto) [place] % (Auto) Lymph # (Auto) [place] # (Auto) Seg Neutrophils % Seg Neuts % (Manual) Lymphocytes % (Manual) Monocytes % (Manual) Nucleated RBC % Seg Neutrophils # Seg Neutrophils # Man Lymphocytes # (Manual) Monocytes # (Manual) PT INR APTT D-Dimer Heparin Anti-Xa Level ABG pH POC ABG pCO2 POC ABG pO2 ABG pO2 ABG HCO3 ABG O2 Saturation ABG Base Excess ABG Hemoglobin ABG Oxyhemoglobin ABG Sodium ABG Potassium ABG Glucose Oxyhemoglobin Sodium Potassium Chloride Carbon Dioxide BUN Creatinine Glucose POC Glucose 162 H 187 H Lactic Acid Calcium Phosphorus Magnesium Ferritin Lactate Dehydrogenase C-Reactive Protein NT-Pro-B Natriuret Pep Total Protein Albumin Triglycerides 267 H Arterial Blood Glucose Ur Specific [place] Coronavirus (PCR) 03/16/21 03/16/21 03/16/21 17:29 22:25 23:22 WBC RBC Hgb Hct MCV MCHC RDW Plt Count Lymph % (Auto) [place] % (Auto) Lymph # (Auto) [place] # (Auto) Seg Neutrophils % Seg Neuts % (Manual) Lymphocytes % (Manual) Monocytes % (Manual) Nucleated RBC % Seg Neutrophils # Seg Neutrophils # Man Lymphocytes # (Manual) Monocytes # (Manual) PT INR APTT D-Dimer Heparin Anti-Xa Level ABG pH POC ABG pCO2 POC ABG pO2 ABG pO2 ABG HCO3 ABG O2 Saturation ABG Base Excess ABG Hemoglobin ABG Oxyhemoglobin ABG Sodium ABG Potassium ABG Glucose Oxyhemoglobin Sodium Potassium Chloride Carbon Dioxide BUN Creatinine Glucose POC Glucose 237 H 165 H 189 H Lactic Acid Calcium Phosphorus Magnesium Ferritin Lactate Dehydrogenase C-Reactive Protein NT-Pro-B Natriuret Pep Total Protein Albumin Triglycerides Arterial Blood Glucose Ur Specific [place] Coronavirus (PCR) 03/17/21 03/17/21 03/17/21 04:40 04:40 04:40 WBC 14.1 H RBC Hgb Hct MCV MCHC RDW 15.3 H Plt Count Lymph % (Auto) 12.6 L [place] % (Auto) 11.3 H Lymph # (Auto) [place] # (Auto) 1.6 H Seg Neutrophils % 74.9 H Seg Neuts % (Manual) Lymphocytes % (Manual) Monocytes % (Manual) Nucleated RBC % Seg Neutrophils # 10.5 H Seg Neutrophils # Man Lymphocytes # (Manual) Monocytes # (Manual) PT INR APTT D-Dimer 1359.12 H Heparin Anti-Xa Level ABG pH POC ABG pCO2 POC ABG pO2 ABG pO2 ABG HCO3 ABG O2 Saturation ABG Base Excess ABG Hemoglobin ABG Oxyhemoglobin ABG Sodium ABG Potassium ABG Glucose Oxyhemoglobin Sodium 148 H Potassium Chloride 107.5 H Carbon Dioxide 33 H BUN 42 H Creatinine Glucose 183 H POC Glucose Lactic Acid Calcium Phosphorus Magnesium 2.70 H Ferritin Lactate Dehydrogenase C-Reactive Protein NT-Pro-B Natriuret Pep Total Protein Albumin Triglycerides Arterial Blood Glucose Ur Specific [place] Coronavirus (PCR) 01/03/17/21 03/17/21 05:53 11:05 11:51 WBC RBC Hgb Hct MCV MCHC RDW Plt Count Lymph % (Auto) [place] % (Auto) Lymph # (Auto) [place] # (Auto) Seg Neutrophils % Seg Neuts % (Manual) Lymphocytes % (Manual) Monocytes % (Manual) Nucleated RBC % Seg Neutrophils # Seg Neutrophils # Man Lymphocytes # (Manual) Monocytes # (Manual) PT INR APTT D-Dimer Heparin Anti-Xa Level ABG pH POC ABG pCO2 POC ABG pO2 ABG pO2 ABG HCO3 35.7 H ABG O2 Saturation ABG Base Excess 8.7 H ABG Hemoglobin ABG Oxyhemoglobin ABG Sodium ABG Potassium ABG Glucose Oxyhemoglobin 94.2 L Sodium Potassium Chloride Carbon Dioxide BUN Creatinine Glucose POC Glucose 176 H 197 H Lactic Acid Calcium Phosphorus Magnesium Ferritin Lactate Dehydrogenase C-Reactive Protein NT-Pro-B Natriuret Pep Total Protein Albumin Triglycerides Arterial Blood Glucose Ur Specific [place] Coronavirus (PCR) 03/17/21 03/17/21 03/17/21 16:54 21:10 23:33 WBC RBC Hgb Hct MCV MCHC RDW Plt Count Lymph % (Auto) [place] % (Auto) Lymph # (Auto) [place] # (Auto) Seg Neutrophils % Seg Neuts % (Manual) Lymphocytes % (Manual) Monocytes % (Manual) Nucleated RBC % Seg Neutrophils # Seg Neutrophils # Man Lymphocytes # (Manual) Monocytes # (Manual) PT INR APTT D-Dimer Heparin Anti-Xa Level ABG pH POC ABG pCO2 POC ABG pO2 ABG pO2 ABG HCO3 ABG O2 Saturation ABG Base Excess ABG Hemoglobin ABG Oxyhemoglobin ABG Sodium ABG Potassium ABG Glucose Oxyhemoglobin Sodium Potassium Chloride Carbon Dioxide BUN Creatinine Glucose POC Glucose 135 H 160 H 138 H Lactic Acid Calcium Phosphorus Magnesium Ferritin Lactate Dehydrogenase C-Reactive Protein NT-Pro-B Natriuret Pep Total Protein Albumin Triglycerides Arterial Blood Glucose Ur Specific [place] Coronavirus (PCR) 03/18/21 03/18/21 03/18/21 04:18 04:50 05:43 WBC RBC Hgb Hct MCV MCHC RDW Plt Count Lymph % (Auto) [place] % (Auto) Lymph # (Auto) [place] # (Auto) Seg Neutrophils % Seg Neuts % (Manual) Lymphocytes % (Manual) Monocytes % (Manual) Nucleated RBC % Seg Neutrophils # Seg Neutrophils # Man Lymphocytes # (Manual) Monocytes # (Manual) PT INR APTT D-Dimer Heparin Anti-Xa Level ABG pH POC ABG pCO2 POC ABG pO2 ABG pO2 59.8 L ABG HCO3 36.5 H ABG O2 Saturation 90.7 L ABG Base Excess 9.4 H ABG Hemoglobin 12.0 L ABG Oxyhemoglobin ABG Sodium ABG Potassium ABG Glucose Oxyhemoglobin 88.9 L Sodium Potassium Chloride 107.2 H Carbon Dioxide 34 H BUN 38 H Creatinine 0.7 L Glucose 136 H POC Glucose 128 H Lactic Acid Calcium Phosphorus Magnesium Ferritin Lactate Dehydrogenase C-Reactive Protein NT-Pro-B Natriuret Pep Total Protein Albumin Triglycerides Arterial Blood Glucose Ur Specific [place] Coronavirus (PCR) 03/18/21 03/18/21 03/18/21 11:20 17:35 23:35 WBC RBC Hgb Hct MCV MCHC RDW Plt Count Lymph % (Auto) [place] % (Auto) Lymph # (Auto) [place] # (Auto) Seg Neutrophils % Seg Neuts % (Manual) Lymphocytes % (Manual) Monocytes % (Manual) Nucleated RBC % Seg Neutrophils # Seg Neutrophils # Man Lymphocytes # (Manual) Monocytes # (Manual) PT INR APTT D-Dimer Heparin Anti-Xa Level ABG pH POC ABG pCO2 POC ABG pO2 ABG pO2 70.7 L ABG HCO3 33.6 H ABG O2 Saturation ABG Base Excess 8.0 H ABG Hemoglobin ABG Oxyhemoglobin ABG Sodium ABG Potassium ABG Glucose Oxyhemoglobin 93.7 L Sodium Potassium Chloride Carbon Dioxide BUN Creatinine Glucose POC Glucose 189 H 144 H Lactic Acid Calcium Phosphorus Magnesium Ferritin Lactate Dehydrogenase C-Reactive Protein NT-Pro-B Natriuret Pep Total Protein Albumin Triglycerides Arterial Blood Glucose Ur Specific [place] Coronavirus (PCR) 03/19/21 03/19/21 03/19/21 02:35 04:20 04:20 WBC 14.0 H RBC Hgb Hct MCV MCHC RDW Plt Count Lymph % (Auto) [place] % (Auto) Lymph # (Auto) [place] # (Auto) Seg Neutrophils % Seg Neuts % (Manual) Lymphocytes % (Manual) Monocytes % (Manual) Nucleated RBC % Seg Neutrophils # Seg Neutrophils # Man Lymphocytes # (Manual) Monocytes # (Manual) PT INR APTT D-Dimer Heparin Anti-Xa Level ABG pH POC ABG pCO2 POC ABG pO2 ABG pO2 ABG HCO3 32.0 H ABG O2 Saturation ABG Base Excess 5.2 H ABG Hemoglobin 13.6 L ABG Oxyhemoglobin ABG Sodium ABG Potassium ABG Glucose Oxyhemoglobin 94.6 L Sodium 146 H Potassium Chloride 109.3 H Carbon Dioxide BUN 36 H Creatinine Glucose 203 H POC Glucose Lactic Acid Calcium Phosphorus Magnesium Ferritin Lactate Dehydrogenase C-Reactive Protein NT-Pro-B Natriuret Pep Total Protein Albumin Triglycerides 254 H Arterial Blood Glucose Ur Specific [place] Coronavirus (PCR) 03/19/21 03/19/21 03/19/21 05:45 11:36 23:51 WBC RBC Hgb Hct MCV MCHC RDW Plt Count Lymph % (Auto) [place] % (Auto) Lymph # (Auto) [place] # (Auto) Seg Neutrophils % Seg Neuts % (Manual) Lymphocytes % (Manual) Monocytes % (Manual) Nucleated RBC % Seg Neutrophils # Seg Neutrophils # Man Lymphocytes # (Manual) Monocytes # (Manual) PT INR APTT D-Dimer Heparin Anti-Xa Level ABG pH POC ABG pCO2 POC ABG pO2 ABG pO2 ABG HCO3 ABG O2 Saturation ABG Base Excess ABG Hemoglobin ABG Oxyhemoglobin ABG Sodium ABG Potassium ABG Glucose Oxyhemoglobin Sodium Potassium Chloride Carbon Dioxide BUN Creatinine Glucose POC Glucose 164 H 172 H 140 H Lactic Acid Calcium Phosphorus Magnesium Ferritin Lactate Dehydrogenase C-Reactive Protein NT-Pro-B Natriuret Pep Total Protein Albumin Triglycerides Arterial Blood Glucose Ur Specific [place] Coronavirus (PCR) 03/20/21 03/20/21 03/20/21 03:29 04:45 04:45 WBC RBC Hgb Hct MCV 95 H MCHC RDW 15.7 H Plt Count Lymph % (Auto) [place] % (Auto) Lymph # (Auto) [place] # (Auto) Seg Neutrophils % Seg Neuts % (Manual) Lymphocytes % (Manual) Monocytes % (Manual) Nucleated RBC % Seg Neutrophils # Seg Neutrophils # Man Lymphocytes # (Manual) Monocytes # (Manual) PT INR APTT D-Dimer Heparin Anti-Xa Level ABG pH 7.349 L POC ABG pCO2 POC ABG pO2 ABG pO2 ABG HCO3 33.7 H ABG O2 Saturation ABG Base Excess 6.4 H ABG Hemoglobin 11.8 L ABG Oxyhemoglobin ABG Sodium ABG Potassium ABG Glucose Oxyhemoglobin 93.9 L Sodium 146 H Potassium 5.5 H Chloride 111.1 H Carbon Dioxide BUN 34 H Creatinine 0.7 L Glucose 145 H POC Glucose Lactic Acid Calcium Phosphorus Magnesium 2.50 H Ferritin Lactate Dehydrogenase C-Reactive Protein NT-Pro-B Natriuret Pep Total Protein Albumin Triglycerides Arterial Blood Glucose Ur Specific [place] Coronavirus (PCR) 03/20/21 03/20/21 03/20/21 05:41 09:08 11:54 WBC RBC Hgb Hct MCV MCHC RDW Plt Count Lymph % (Auto) [place] % (Auto) Lymph # (Auto) [place] # (Auto) Seg Neutrophils % Seg Neuts % (Manual) Lymphocytes % (Manual) Monocytes % (Manual) Nucleated RBC % Seg Neutrophils # Seg Neutrophils # Man Lymphocytes # (Manual) Monocytes # (Manual) PT INR APTT D-Dimer Heparin Anti-Xa Level ABG pH POC ABG pCO2 POC ABG pO2 ABG pO2 ABG HCO3 ABG O2 Saturation ABG Base Excess ABG Hemoglobin ABG Oxyhemoglobin ABG Sodium ABG Potassium ABG Glucose Oxyhemoglobin Sodium Potassium Chloride Carbon Dioxide BUN Creatinine Glucose POC Glucose 108 H 132 H 162 H Lactic Acid Calcium Phosphorus Magnesium Ferritin Lactate Dehydrogenase C-Reactive Protein NT-Pro-B Natriuret Pep Total Protein Albumin Triglycerides Arterial Blood Glucose Ur Specific [place] Coronavirus (PCR) 03/20/21 03/21/21 03/21/21 17:28 00:31 04:44 WBC RBC Hgb Hct MCV MCHC RDW Plt Count Lymph % (Auto) [place] % (Auto) Lymph # (Auto) [place] # (Auto) Seg Neutrophils % Seg Neuts % (Manual) Lymphocytes % (Manual) Monocytes % (Manual) Nucleated RBC % Seg Neutrophils # Seg Neutrophils # Man Lymphocytes # (Manual) Monocytes # (Manual) PT INR APTT D-Dimer Heparin Anti-Xa Level ABG pH POC ABG pCO2 POC ABG pO2 ABG pO2 ABG HCO3 ABG O2 Saturation ABG Base Excess ABG Hemoglobin ABG Oxyhemoglobin ABG Sodium ABG Potassium ABG Glucose Oxyhemoglobin Sodium Potassium Chloride 108.3 H Carbon Dioxide BUN 30 H Creatinine 0.7 L Glucose POC Glucose 160 H 122 H Lactic Acid Calcium Phosphorus Magnesium Ferritin Lactate Dehydrogenase C-Reactive Protein NT-Pro-B Natriuret Pep Total Protein Albumin Triglycerides Arterial Blood Glucose Ur Specific [place] Coronavirus (PCR) 03/21/21 03/21/21 03/21/21 09:18 10:09 13:20 WBC RBC Hgb Hct MCV MCHC RDW Plt Count Lymph % (Auto) [place] % (Auto) Lymph # (Auto) [place] # (Auto) Seg Neutrophils % Seg Neuts % (Manual) Lymphocytes % (Manual) Monocytes % (Manual) Nucleated RBC % Seg Neutrophils # Seg Neutrophils # Man Lymphocytes # (Manual) Monocytes # (Manual) PT INR APTT D-Dimer Heparin Anti-Xa Level ABG pH POC ABG pCO2 POC ABG pO2 ABG pO2 60.7 L ABG HCO3 30.6 H ABG O2 Saturation 93.6 L ABG Base Excess 5.3 H ABG Hemoglobin ABG Oxyhemoglobin ABG Sodium ABG Potassium ABG Glucose Oxyhemoglobin 91.7 L Sodium Potassium Chloride Carbon Dioxide BUN Creatinine Glucose POC Glucose 169 H 122 H Lactic Acid Calcium Phosphorus Magnesium Ferritin Lactate Dehydrogenase C-Reactive Protein NT-Pro-B Natriuret Pep Total Protein Albumin Triglycerides Arterial Blood Glucose Ur Specific [place] Coronavirus (PCR) 03/21/21 03/21/21 03/21/21 17:25 22:41 23:52 WBC RBC Hgb Hct MCV MCHC RDW Plt Count Lymph % (Auto) [place] % (Auto) Lymph # (Auto) [place] # (Auto) Seg Neutrophils % Seg Neuts % (Manual) Lymphocytes % (Manual) Monocytes % (Manual) Nucleated RBC % Seg Neutrophils # Seg Neutrophils # Man Lymphocytes # (Manual) Monocytes # (Manual) PT INR APTT D-Dimer Heparin Anti-Xa Level ABG pH POC ABG pCO2 POC ABG pO2 ABG pO2 ABG HCO3 ABG O2 Saturation ABG Base Excess ABG Hemoglobin ABG Oxyhemoglobin ABG Sodium ABG Potassium ABG Glucose Oxyhemoglobin Sodium Potassium Chloride Carbon Dioxide BUN Creatinine Glucose POC Glucose 121 H 139 H 140 H Lactic Acid Calcium Phosphorus Magnesium Ferritin Lactate Dehydrogenase C-Reactive Protein NT-Pro-B Natriuret Pep Total Protein Albumin Triglycerides Arterial Blood Glucose Ur Specific [place] Coronavirus (PCR) 03/22/21 03/22/21 03/22/21 05:58 07:26 07:26 WBC RBC Hgb Hct MCV MCHC 31 L RDW 16.1 H Plt Count Lymph % (Auto) [place] % (Auto) Lymph # (Auto) [place] # (Auto) Seg Neutrophils % Seg Neuts % (Manual) Lymphocytes % (Manual) Monocytes % (Manual) Nucleated RBC % Seg Neutrophils # Seg Neutrophils # Man Lymphocytes # (Manual) Monocytes # (Manual) PT INR APTT D-Dimer Heparin Anti-Xa Level ABG pH POC ABG pCO2 POC ABG pO2 ABG pO2 ABG HCO3 ABG O2 Saturation ABG Base Excess ABG Hemoglobin ABG Oxyhemoglobin ABG Sodium ABG Potassium ABG Glucose Oxyhemoglobin Sodium Potassium Chloride 108.5 H Carbon Dioxide BUN 44 H Creatinine Glucose 120 H POC Glucose 131 H Lactic Acid Calcium Phosphorus 5.80 H Magnesium 2.80 H Ferritin Lactate Dehydrogenase C-Reactive Protein NT-Pro-B Natriuret Pep Total Protein Albumin Triglycerides 305 H Arterial Blood Glucose Ur Specific [place] Coronavirus (PCR) 03/22/21 03/22/21 03/22/21 09:38 11:15 16:01 WBC RBC Hgb Hct MCV MCHC RDW Plt Count Lymph % (Auto) [place] % (Auto) Lymph # (Auto) [place] # (Auto) Seg Neutrophils % Seg Neuts % (Manual) Lymphocytes % (Manual) Monocytes % (Manual) Nucleated RBC % Seg Neutrophils # Seg Neutrophils # Man Lymphocytes # (Manual) Monocytes # (Manual) PT INR APTT D-Dimer Heparin Anti-Xa Level ABG pH POC ABG pCO2 POC ABG pO2 ABG pO2 70.0 L ABG HCO3 30.0 H ABG O2 Saturation 94.6 L ABG Base Excess 3.6 H ABG Hemoglobin 13.5 L ABG Oxyhemoglobin ABG Sodium ABG Potassium ABG Glucose Oxyhemoglobin 92.5 L Sodium Potassium Chloride Carbon Dioxide BUN Creatinine Glucose POC Glucose 186 H 148 H Lactic Acid Calcium Phosphorus Magnesium Ferritin Lactate Dehydrogenase C-Reactive Protein NT-Pro-B Natriuret Pep Total Protein Albumin Triglycerides Arterial Blood Glucose Ur Specific [place] Coronavirus (PCR) 03/22/21 03/22/21 03/23/21 21:13 23:48 07:04 WBC 11.7 H RBC Hgb Hct MCV 95 H MCHC RDW 16.1 H Plt Count Lymph % (Auto) [place] % (Auto) Lymph # (Auto) [place] # (Auto) Seg Neutrophils % Seg Neuts % (Manual) Lymphocytes % (Manual) Monocytes % (Manual) Nucleated RBC % Seg Neutrophils # Seg Neutrophils # Man Lymphocytes # (Manual) Monocytes # (Manual) PT INR APTT D-Dimer Heparin Anti-Xa Level ABG pH POC ABG pCO2 POC ABG pO2 ABG pO2 ABG HCO3 ABG O2 Saturation ABG Base Excess ABG Hemoglobin ABG Oxyhemoglobin ABG Sodium ABG Potassium ABG Glucose Oxyhemoglobin Sodium Potassium Chloride Carbon Dioxide BUN Creatinine Glucose POC Glucose 121 H 114 H Lactic Acid Calcium Phosphorus Magnesium Ferritin Lactate Dehydrogenase C-Reactive Protein NT-Pro-B Natriuret Pep Total Protein Albumin Triglycerides Arterial Blood Glucose Ur Specific [place] Coronavirus (PCR) 03/23/21 03/23/21 03/23/21 07:04 08:35 11:19 WBC RBC Hgb Hct MCV MCHC RDW Plt Count Lymph % (Auto) [place] % (Auto) Lymph # (Auto) [place] # (Auto) Seg Neutrophils % Seg Neuts % (Manual) Lymphocytes % (Manual) Monocytes % (Manual) Nucleated RBC % Seg Neutrophils # Seg Neutrophils # Man Lymphocytes # (Manual) Monocytes # (Manual) PT INR APTT D-Dimer Heparin Anti-Xa Level ABG pH 7.345 L POC ABG pCO2 POC ABG pO2 ABG pO2 167.9 H ABG HCO3 32.2 H ABG O2 Saturation ABG Base Excess 4.8 H ABG Hemoglobin 13.4 L ABG Oxyhemoglobin ABG Sodium ABG Potassium ABG Glucose Oxyhemoglobin Sodium 148 H Potassium Chloride 111.3 H Carbon Dioxide 31 H BUN 31 H Creatinine Glucose 131 H POC Glucose 165 H Lactic Acid Calcium Phosphorus Magnesium 2.50 H Ferritin Lactate Dehydrogenase C-Reactive Protein NT-Pro-B Natriuret Pep Total Protein Albumin Triglycerides Arterial Blood Glucose Ur Specific [place] Coronavirus (PCR) 03/23/21 03/23/21 03/24/21 16:48 20:52 00:07 WBC RBC Hgb Hct MCV MCHC RDW Plt Count Lymph % (Auto) [place] % (Auto) Lymph # (Auto) [place] # (Auto) Seg Neutrophils % Seg Neuts % (Manual) Lymphocytes % (Manual) Monocytes % (Manual) Nucleated RBC % Seg Neutrophils # Seg Neutrophils # Man Lymphocytes # (Manual) Monocytes # (Manual) PT INR APTT D-Dimer Heparin Anti-Xa Level ABG pH POC ABG pCO2 POC ABG pO2 ABG pO2 ABG HCO3 ABG O2 Saturation ABG Base Excess ABG Hemoglobin ABG Oxyhemoglobin ABG Sodium ABG Potassium ABG Glucose Oxyhemoglobin Sodium Potassium Chloride Carbon Dioxide BUN Creatinine Glucose POC Glucose 160 H 127 H 147 H Lactic Acid Calcium Phosphorus Magnesium Ferritin Lactate Dehydrogenase C-Reactive Protein NT-Pro-B Natriuret Pep Total Protein Albumin Triglycerides Arterial Blood Glucose Ur Specific [place] Coronavirus (PCR) 03/24/21 03/24/21 03/24/21 04:34 04:34 05:20 WBC 13.3 H RBC Hgb Hct MCV MCHC 31 L RDW 16.1 H Plt Count Lymph % (Auto) [place] % (Auto) Lymph # (Auto) [place] # (Auto) Seg Neutrophils % Seg Neuts % (Manual) Lymphocytes % (Manual) Monocytes % (Manual) Nucleated RBC % Seg Neutrophils # Seg Neutrophils # Man Lymphocytes # (Manual) Monocytes # (Manual) PT INR APTT D-Dimer Heparin Anti-Xa Level ABG pH POC ABG pCO2 POC ABG pO2 ABG pO2 ABG HCO3 ABG O2 Saturation ABG Base Excess ABG Hemoglobin ABG Oxyhemoglobin ABG Sodium ABG Potassium ABG Glucose Oxyhemoglobin Sodium Potassium 5.2 H Chloride Carbon Dioxide BUN 28 H Creatinine 0.7 L Glucose 152 H POC Glucose 141 H Lactic Acid Calcium Phosphorus Magnesium Ferritin Lactate Dehydrogenase C-Reactive Protein NT-Pro-B Natriuret Pep Total Protein Albumin Triglycerides Arterial Blood Glucose Ur Specific [place] Coronavirus (PCR) 03/24/21 03/24/21 03/24/21 09:40 11:38 16:45 WBC RBC Hgb Hct MCV MCHC RDW Plt Count Lymph % (Auto) [place] % (Auto) Lymph # (Auto) [place] # (Auto) Seg Neutrophils % Seg Neuts % (Manual) Lymphocytes % (Manual) Monocytes % (Manual) Nucleated RBC % Seg Neutrophils # Seg Neutrophils # Man Lymphocytes # (Manual) Monocytes # (Manual) PT INR APTT D-Dimer Heparin Anti-Xa Level ABG pH POC ABG pCO2 POC ABG pO2 ABG pO2 ABG HCO3 ABG O2 Saturation ABG Base Excess ABG Hemoglobin ABG Oxyhemoglobin ABG Sodium ABG Potassium ABG Glucose Oxyhemoglobin Sodium Potassium Chloride Carbon Dioxide BUN Creatinine Glucose POC Glucose 126 H 136 H 118 H Lactic Acid Calcium Phosphorus Magnesium Ferritin Lactate Dehydrogenase C-Reactive Protein NT-Pro-B Natriuret Pep Total Protein Albumin Triglycerides Arterial Blood Glucose Ur Specific [place] Coronavirus (PCR) 03/24/21 03/24/21 03/25/21 21:03 23:49 04:32 WBC RBC Hgb Hct MCV MCHC RDW 16.1 H Plt Count 121 L Lymph % (Auto) [place] % (Auto) Lymph # (Auto) [place] # (Auto) Seg Neutrophils % Seg Neuts % (Manual) Lymphocytes % (Manual) Monocytes % (Manual) Nucleated RBC % Seg Neutrophils # Seg Neutrophils # Man Lymphocytes # (Manual) Monocytes # (Manual) PT INR APTT D-Dimer Heparin Anti-Xa Level ABG pH POC ABG pCO2 POC ABG pO2 ABG pO2 ABG HCO3 ABG O2 Saturation ABG Base Excess ABG Hemoglobin ABG Oxyhemoglobin ABG Sodium ABG Potassium ABG Glucose Oxyhemoglobin Sodium Potassium Chloride Carbon Dioxide BUN Creatinine Glucose POC Glucose 116 H 125 H Lactic Acid Calcium Phosphorus Magnesium Ferritin Lactate Dehydrogenase C-Reactive Protein NT-Pro-B Natriuret Pep Total Protein Albumin Triglycerides Arterial Blood Glucose Ur Specific [place] Coronavirus (PCR) 03/25/21 03/25/21 03/25/21 04:32 05:21 09:29 WBC RBC Hgb Hct MCV MCHC RDW Plt Count Lymph % (Auto) [place] % (Auto) Lymph # (Auto) [place] # (Auto) Seg Neutrophils % Seg Neuts % (Manual) Lymphocytes % (Manual) Monocytes % (Manual) Nucleated RBC % Seg Neutrophils # Seg Neutrophils # Man Lymphocytes # (Manual) Monocytes # (Manual) PT INR APTT D-Dimer Heparin Anti-Xa Level ABG pH POC ABG pCO2 POC ABG pO2 ABG pO2 ABG HCO3 ABG O2 Saturation ABG Base Excess ABG Hemoglobin ABG Oxyhemoglobin ABG Sodium ABG Potassium ABG Glucose Oxyhemoglobin Sodium 135 L D Potassium Chloride Carbon Dioxide BUN 25 H Creatinine 0.7 L Glucose 168 H POC Glucose 149 H 115 H Lactic Acid Calcium Phosphorus Magnesium Ferritin Lactate Dehydrogenase C-Reactive Protein NT-Pro-B Natriuret Pep Total Protein Albumin Triglycerides Arterial Blood Glucose Ur Specific [place] Coronavirus (PCR) 03/25/21 03/25/21 03/25/21 12:26 12:35 23:53 WBC RBC Hgb Hct MCV MCHC RDW Plt Count Lymph % (Auto) [place] % (Auto) Lymph # (Auto) [place] # (Auto) Seg Neutrophils % Seg Neuts % (Manual) Lymphocytes % (Manual) Monocytes % (Manual) Nucleated RBC % Seg Neutrophils # Seg Neutrophils # Man Lymphocytes # (Manual) Monocytes # (Manual) PT INR APTT D-Dimer Heparin Anti-Xa Level ABG pH POC ABG pCO2 POC ABG pO2 ABG pO2 100.5 H ABG HCO3 33.6 H ABG O2 Saturation ABG Base Excess 6.4 H ABG Hemoglobin 12.0 L ABG Oxyhemoglobin ABG Sodium ABG Potassium ABG Glucose Oxyhemoglobin Sodium Potassium Chloride Carbon Dioxide BUN Creatinine Glucose POC Glucose 108 H 137 H Lactic Acid Calcium Phosphorus Magnesium Ferritin Lactate Dehydrogenase C-Reactive Protein NT-Pro-B Natriuret Pep Total Protein Albumin Triglycerides Arterial Blood Glucose Ur Specific [place] Coronavirus (PCR) 03/26/21 03/26/21 03/26/21 05:14 07:09 07:09 WBC RBC Hgb Hct MCV MCHC RDW 16.5 H Plt Count 139 L Lymph % (Auto) [place] % (Auto) Lymph # (Auto) [place] # (Auto) Seg Neutrophils % Seg Neuts % (Manual) Lymphocytes % (Manual) Monocytes % (Manual) Nucleated RBC % Seg Neutrophils # Seg Neutrophils # Man Lymphocytes # (Manual) Monocytes # (Manual) PT INR APTT D-Dimer Heparin Anti-Xa Level ABG pH POC ABG pCO2 POC ABG pO2 ABG pO2 ABG HCO3 ABG O2 Saturation ABG Base Excess ABG Hemoglobin ABG Oxyhemoglobin ABG Sodium ABG Potassium ABG Glucose Oxyhemoglobin Sodium Potassium Chloride Carbon Dioxide BUN 22 H Creatinine 0.7 L Glucose 108 H POC Glucose 116 H Lactic Acid Calcium Phosphorus Magnesium Ferritin Lactate Dehydrogenase C-Reactive Protein NT-Pro-B Natriuret Pep Total Protein Albumin Triglycerides Arterial Blood Glucose Ur Specific [place] Coronavirus (PCR) 03/26/21 03/26/21 03/26/21 09:51 11:15 16:59 WBC RBC Hgb Hct MCV MCHC RDW Plt Count Lymph % (Auto) [place] % (Auto) Lymph # (Auto) [place] # (Auto) Seg Neutrophils % Seg Neuts % (Manual) Lymphocytes % (Manual) Monocytes % (Manual) Nucleated RBC % Seg Neutrophils # Seg Neutrophils # Man Lymphocytes # (Manual) Monocytes # (Manual) PT INR APTT D-Dimer Heparin Anti-Xa Level ABG pH POC ABG pCO2 POC ABG pO2 ABG pO2 ABG HCO3 ABG O2 Saturation ABG Base Excess ABG Hemoglobin ABG Oxyhemoglobin ABG Sodium ABG Potassium ABG Glucose Oxyhemoglobin Sodium Potassium Chloride Carbon Dioxide BUN Creatinine Glucose POC Glucose 107 H 119 H 174 H Lactic Acid Calcium Phosphorus Magnesium Ferritin Lactate Dehydrogenase C-Reactive Protein NT-Pro-B Natriuret Pep Total Protein Albumin Triglycerides Arterial Blood Glucose Ur Specific [place] Coronavirus (PCR) 03/26/21 03/27/21 03/27/21 22:18 07:08 10:28 WBC RBC Hgb Hct MCV 95 H MCHC RDW 16.2 H Plt Count 134 L Lymph % (Auto) [place] % (Auto) Lymph # (Auto) [place] # (Auto) Seg Neutrophils % Seg Neuts % (Manual) Lymphocytes % (Manual) Monocytes % (Manual) Nucleated RBC % Seg Neutrophils # Seg Neutrophils # Man Lymphocytes # (Manual) Monocytes # (Manual) PT INR APTT D-Dimer Heparin Anti-Xa Level ABG pH POC ABG pCO2 POC ABG pO2 ABG pO2 ABG HCO3 ABG O2 Saturation ABG Base Excess ABG Hemoglobin ABG Oxyhemoglobin ABG Sodium ABG Potassium ABG Glucose Oxyhemoglobin Sodium Potassium Chloride Carbon Dioxide BUN Creatinine Glucose POC Glucose 107 H 52 L Lactic Acid Calcium Phosphorus Magnesium Ferritin Lactate Dehydrogenase C-Reactive Protein NT-Pro-B Natriuret Pep Total Protein Albumin Triglycerides Arterial Blood Glucose Ur Specific [place] Coronavirus (PCR) 03/27/21 03/27/21 03/27/21 10:28 11:45 17:39 WBC RBC Hgb Hct MCV MCHC RDW Plt Count Lymph % (Auto) [place] % (Auto) Lymph # (Auto) [place] # (Auto) Seg Neutrophils % Seg Neuts % (Manual) Lymphocytes % (Manual) Monocytes % (Manual) Nucleated RBC % Seg Neutrophils # Seg Neutrophils # Man Lymphocytes # (Manual) Monocytes # (Manual) PT INR APTT D-Dimer Heparin Anti-Xa Level ABG pH POC ABG pCO2 POC ABG pO2 ABG pO2 ABG HCO3 ABG O2 Saturation ABG Base Excess ABG Hemoglobin ABG Oxyhemoglobin ABG Sodium ABG Potassium ABG Glucose Oxyhemoglobin Sodium 136 L Potassium Chloride Carbon Dioxide BUN Creatinine 0.7 L Glucose 150 H POC Glucose 121 H 165 H Lactic Acid Calcium Phosphorus Magnesium Ferritin Lactate Dehydrogenase C-Reactive Protein NT-Pro-B Natriuret Pep Total Protein Albumin Triglycerides Arterial Blood Glucose Ur Specific [place] Coronavirus (PCR) 03/28/21 03/28/21 03/28/21 07:14 11:42 18:22 WBC RBC Hgb Hct MCV MCHC RDW 16.4 H Plt Count Lymph % (Auto) [place] % (Auto) Lymph # (Auto) [place] # (Auto) Seg Neutrophils % Seg Neuts % (Manual) Lymphocytes % (Manual) Monocytes % (Manual) Nucleated RBC % Seg Neutrophils # Seg Neutrophils # Man Lymphocytes # (Manual) Monocytes # (Manual) PT INR APTT D-Dimer Heparin Anti-Xa Level ABG pH POC ABG pCO2 POC ABG pO2 ABG pO2 ABG HCO3 ABG O2 Saturation ABG Base Excess ABG Hemoglobin ABG Oxyhemoglobin ABG Sodium ABG Potassium ABG Glucose Oxyhemoglobin Sodium Potassium Chloride Carbon Dioxide BUN Creatinine Glucose POC Glucose 145 H 169 H Lactic Acid Calcium Phosphorus Magnesium Ferritin Lactate Dehydrogenase C-Reactive Protein NT-Pro-B Natriuret Pep Total Protein Albumin Triglycerides Arterial Blood Glucose Ur Specific [place] Coronavirus (PCR) 03/28/21 03/29/21 03/29/21 23:39 04:50 04:50 WBC RBC Hgb 11.0 L Hct 34.9 L MCV MCHC RDW 15.9 H Plt Count Lymph % (Auto) [place] % (Auto) Lymph # (Auto) [place] # (Auto) Seg Neutrophils % Seg Neuts % (Manual) Lymphocytes % (Manual) Monocytes % (Manual) Nucleated RBC % Seg Neutrophils # Seg Neutrophils # Man Lymphocytes # (Manual) Monocytes # (Manual) PT INR APTT D-Dimer Heparin Anti-Xa Level ABG pH POC ABG pCO2 POC ABG pO2 ABG pO2 ABG HCO3 ABG O2 Saturation ABG Base Excess ABG Hemoglobin ABG Oxyhemoglobin ABG Sodium ABG Potassium ABG Glucose Oxyhemoglobin Sodium Potassium Chloride Carbon Dioxide 34 H BUN Creatinine 0.6 L Glucose 152 H POC Glucose 139 H Lactic Acid Calcium Phosphorus Magnesium Ferritin Lactate Dehydrogenase C-Reactive Protein NT-Pro-B Natriuret Pep Total Protein Albumin Triglycerides Arterial Blood Glucose Ur Specific [place] Coronavirus (PCR) 03/29/21 03/29/21 03/29/21 05:25 11:34 18:02 WBC RBC Hgb Hct MCV MCHC RDW Plt Count Lymph % (Auto) [place] % (Auto) Lymph # (Auto) [place] # (Auto) Seg Neutrophils % Seg Neuts % (Manual) Lymphocytes % (Manual) Monocytes % (Manual) Nucleated RBC % Seg Neutrophils # Seg Neutrophils # Man Lymphocytes # (Manual) Monocytes # (Manual) PT INR APTT D-Dimer Heparin Anti-Xa Level ABG pH POC ABG pCO2 POC ABG pO2 ABG pO2 ABG HCO3 ABG O2 Saturation ABG Base Excess ABG Hemoglobin ABG Oxyhemoglobin ABG Sodium ABG Potassium ABG Glucose Oxyhemoglobin Sodium Potassium Chloride Carbon Dioxide BUN Creatinine Glucose POC Glucose 127 H 169 H 173 H Lactic Acid Calcium Phosphorus Magnesium Ferritin Lactate Dehydrogenase C-Reactive Protein NT-Pro-B Natriuret Pep Total Protein Albumin Triglycerides Arterial Blood Glucose Ur Specific [place] Coronavirus (PCR) 03/29/21 03/30/21 03/30/21 21:42 00:01 05:36 WBC RBC Hgb Hct MCV MCHC RDW 16.7 H Plt Count Lymph % (Auto) [place] % (Auto) Lymph # (Auto) [place] # (Auto) Seg Neutrophils % Seg Neuts % (Manual) Lymphocytes % (Manual) Monocytes % (Manual) Nucleated RBC % Seg Neutrophils # Seg Neutrophils # Man Lymphocytes # (Manual) Monocytes # (Manual) PT INR APTT D-Dimer Heparin Anti-Xa Level ABG pH POC ABG pCO2 POC ABG pO2 ABG pO2 ABG HCO3 ABG O2 Saturation ABG Base Excess ABG Hemoglobin ABG Oxyhemoglobin ABG Sodium ABG Potassium ABG Glucose Oxyhemoglobin Sodium Potassium Chloride Carbon Dioxide BUN Creatinine Glucose POC Glucose 184 H 161 H Lactic Acid Calcium Phosphorus Magnesium Ferritin Lactate Dehydrogenase C-Reactive Protein NT-Pro-B Natriuret Pep Total Protein Albumin Triglycerides Arterial Blood Glucose Ur Specific [place] Coronavirus (PCR) 03/30/21 03/30/21 03/30/21 05:36 06:03 11:32 WBC RBC Hgb Hct MCV MCHC RDW Plt Count Lymph % (Auto) [place] % (Auto) Lymph # (Auto) [place] # (Auto) Seg Neutrophils % Seg Neuts % (Manual) Lymphocytes % (Manual) Monocytes % (Manual) Nucleated RBC % Seg Neutrophils # Seg Neutrophils # Man Lymphocytes # (Manual) Monocytes # (Manual) PT INR APTT D-Dimer Heparin Anti-Xa Level ABG pH POC ABG pCO2 POC ABG pO2 ABG pO2 ABG HCO3 ABG O2 Saturation ABG Base Excess ABG Hemoglobin ABG Oxyhemoglobin ABG Sodium ABG Potassium ABG Glucose Oxyhemoglobin Sodium Potassium Chloride Carbon Dioxide BUN Creatinine 0.5 L Glucose 127 H POC Glucose 130 H 183 H Lactic Acid Calcium Phosphorus Magnesium Ferritin Lactate Dehydrogenase C-Reactive Protein NT-Pro-B Natriuret Pep Total Protein Albumin Triglycerides Arterial Blood Glucose Ur Specific [place] Coronavirus (PCR) 03/30/21 03/30/21 03/30/21 15:00 16:23 21:07 WBC RBC Hgb Hct MCV MCHC RDW Plt Count Lymph % (Auto) [place] % (Auto) Lymph # (Auto) [place] # (Auto) Seg Neutrophils % Seg Neuts % (Manual) Lymphocytes % (Manual) Monocytes % (Manual) Nucleated RBC % Seg Neutrophils # Seg Neutrophils # Man Lymphocytes # (Manual) Monocytes # (Manual) PT INR APTT D-Dimer Heparin Anti-Xa Level ABG pH POC ABG pCO2 POC ABG pO2 ABG pO2 67.2 L ABG HCO3 34.9 H ABG O2 Saturation ABG Base Excess 9.1 H ABG Hemoglobin 11.6 L ABG Oxyhemoglobin ABG Sodium ABG Potassium ABG Glucose Oxyhemoglobin 93.0 L Sodium Potassium Chloride Carbon Dioxide BUN Creatinine Glucose POC Glucose 162 H 146 H Lactic Acid Calcium Phosphorus Magnesium Ferritin Lactate Dehydrogenase C-Reactive Protein NT-Pro-B Natriuret Pep Total Protein Albumin Triglycerides Arterial Blood Glucose Ur Specific [place] Coronavirus (PCR) 03/30/21 03/31/21 03/31/21 23:23 05:44 11:19 WBC RBC Hgb Hct MCV MCHC RDW Plt Count Lymph % (Auto) [place] % (Auto) Lymph # (Auto) [place] # (Auto) Seg Neutrophils % Seg Neuts % (Manual) Lymphocytes % (Manual) Monocytes % (Manual) Nucleated RBC % Seg Neutrophils # Seg Neutrophils # Man Lymphocytes # (Manual) Monocytes # (Manual) PT INR APTT D-Dimer Heparin Anti-Xa Level ABG pH POC ABG pCO2 POC ABG pO2 ABG pO2 ABG HCO3 ABG O2 Saturation ABG Base Excess ABG Hemoglobin ABG Oxyhemoglobin ABG Sodium ABG Potassium ABG Glucose Oxyhemoglobin Sodium Potassium Chloride Carbon Dioxide BUN Creatinine Glucose POC Glucose 138 H 180 H 178 H Lactic Acid Calcium Phosphorus Magnesium Ferritin Lactate Dehydrogenase C-Reactive Protein NT-Pro-B Natriuret Pep Total Protein Albumin Triglycerides Arterial Blood Glucose Ur Specific [place] Coronavirus (PCR) 03/31/21 03/31/21 03/31/21 12:50 13:30 16:06 WBC RBC Hgb 11.3 L Hct 35.1 L MCV MCHC RDW 16.5 H Plt Count Lymph % (Auto) 7.6 L [place] % (Auto) 9.5 H Lymph # (Auto) 0.6 L [place] # (Auto) Seg Neutrophils % 78.3 H Seg Neuts % (Manual) Lymphocytes % (Manual) Monocytes % (Manual) Nucleated RBC % Seg Neutrophils # Seg Neutrophils # Man Lymphocytes # (Manual) Monocytes # (Manual) PT INR APTT D-Dimer Heparin Anti-Xa Level ABG pH POC ABG pCO2 POC ABG pO2 ABG pO2 99.4 H ABG HCO3 34.9 H ABG O2 Saturation ABG Base Excess 8.4 H ABG Hemoglobin 11.8 L ABG Oxyhemoglobin ABG Sodium ABG Potassium ABG Glucose Oxyhemoglobin Sodium Potassium Chloride Carbon Dioxide BUN Creatinine Glucose POC Glucose 197 H Lactic Acid Calcium Phosphorus Magnesium Ferritin Lactate Dehydrogenase C-Reactive Protein NT-Pro-B Natriuret Pep Total Protein Albumin Triglycerides Arterial Blood Glucose Ur Specific [place] Coronavirus (PCR) 03/31/21 04/01/21 04/01/21 20:51 05:37 07:16 WBC RBC 3.39 L Hgb 10.5 L Hct 31.6 L MCV MCHC RDW 16.1 H Plt Count Lymph % (Auto) [place] % (Auto) Lymph # (Auto) [place] # (Auto) Seg Neutrophils % Seg Neuts % (Manual) Lymphocytes % (Manual) Monocytes % (Manual) Nucleated RBC % Seg Neutrophils # Seg Neutrophils # Man Lymphocytes # (Manual) Monocytes # (Manual) PT INR APTT D-Dimer Heparin Anti-Xa Level ABG pH POC ABG pCO2 POC ABG pO2 ABG pO2 ABG HCO3 ABG O2 Saturation ABG Base Excess ABG Hemoglobin ABG Oxyhemoglobin ABG Sodium ABG Potassium ABG Glucose Oxyhemoglobin Sodium Potassium Chloride Carbon Dioxide BUN Creatinine Glucose POC Glucose 140 H 128 H Lactic Acid Calcium Phosphorus Magnesium Ferritin Lactate Dehydrogenase C-Reactive Protein NT-Pro-B Natriuret Pep Total Protein Albumin Triglycerides Arterial Blood Glucose Ur Specific [place] Coronavirus (PCR) 04/01/21 04/01/21 04/01/21 07:16 11:52 16:56 WBC RBC Hgb Hct MCV MCHC RDW Plt Count Lymph % (Auto) [place] % (Auto) Lymph # (Auto) [place] # (Auto) Seg Neutrophils % Seg Neuts % (Manual) Lymphocytes % (Manual) Monocytes % (Manual) Nucleated RBC % Seg Neutrophils # Seg Neutrophils # Man Lymphocytes # (Manual) Monocytes # (Manual) PT INR APTT D-Dimer Heparin Anti-Xa Level ABG pH POC ABG pCO2 POC ABG pO2 ABG pO2 ABG HCO3 ABG O2 Saturation ABG Base Excess ABG Hemoglobin ABG Oxyhemoglobin ABG Sodium ABG Potassium ABG Glucose Oxyhemoglobin Sodium Potassium Chloride Carbon Dioxide BUN Creatinine 0.6 L Glucose 131 H POC Glucose 182 H 179 H Lactic Acid Calcium 8.3 L Phosphorus Magnesium Ferritin Lactate Dehydrogenase C-Reactive Protein NT-Pro-B Natriuret Pep Total Protein Albumin Triglycerides Arterial Blood Glucose Ur Specific [place] Coronavirus (PCR) 04/01/21 04/01/21 04/02/21 21:30 23:40 04:26 WBC RBC 3.62 L Hgb 10.8 L Hct 33.9 L MCV MCHC RDW 16.0 H Plt Count Lymph % (Auto) [place] % (Auto) Lymph # (Auto) [place] # (Auto) Seg Neutrophils % Seg Neuts % (Manual) Lymphocytes % (Manual) Monocytes % (Manual) Nucleated RBC % Seg Neutrophils # Seg Neutrophils # Man Lymphocytes # (Manual) Monocytes # (Manual) PT INR APTT D-Dimer Heparin Anti-Xa Level ABG pH POC ABG pCO2 POC ABG pO2 ABG pO2 ABG HCO3 ABG O2 Saturation ABG Base Excess ABG Hemoglobin ABG Oxyhemoglobin ABG Sodium ABG Potassium ABG Glucose Oxyhemoglobin Sodium Potassium Chloride Carbon Dioxide BUN Creatinine Glucose POC Glucose 131 H 129 H Lactic Acid Calcium Phosphorus Magnesium Ferritin Lactate Dehydrogenase C-Reactive Protein NT-Pro-B Natriuret Pep Total Protein Albumin Triglycerides Arterial Blood Glucose Ur Specific [place] Coronavirus (PCR) 04/02/21 04/02/21 04/02/21 04:26 05:54 11:35 WBC RBC Hgb Hct MCV MCHC RDW Plt Count Lymph % (Auto) [place] % (Auto) Lymph # (Auto) [place] # (Auto) Seg Neutrophils % Seg Neuts % (Manual) Lymphocytes % (Manual) Monocytes % (Manual) Nucleated RBC % Seg Neutrophils # Seg Neutrophils # Man Lymphocytes # (Manual) Monocytes # (Manual) PT INR APTT D-Dimer Heparin Anti-Xa Level ABG pH POC ABG pCO2 POC ABG pO2 ABG pO2 ABG HCO3 ABG O2 Saturation ABG Base Excess ABG Hemoglobin ABG Oxyhemoglobin ABG Sodium ABG Potassium ABG Glucose Oxyhemoglobin Sodium 136 L Potassium Chloride Carbon Dioxide BUN Creatinine 0.6 L Glucose 152 H POC Glucose 151 H 178 H Lactic Acid Calcium Phosphorus Magnesium Ferritin Lactate Dehydrogenase C-Reactive Protein NT-Pro-B Natriuret Pep Total Protein Albumin Triglycerides Arterial Blood Glucose Ur Specific [place] Coronavirus (PCR) 04/02/21 04/02/21 04/02/21 16:11 21:09 23:38 WBC RBC Hgb Hct MCV MCHC RDW Plt Count Lymph % (Auto) [place] % (Auto) Lymph # (Auto) [place] # (Auto) Seg Neutrophils % Seg Neuts % (Manual) Lymphocytes % (Manual) Monocytes % (Manual) Nucleated RBC % Seg Neutrophils # Seg Neutrophils # Man Lymphocytes # (Manual) Monocytes # (Manual) PT INR APTT D-Dimer Heparin Anti-Xa Level ABG pH POC ABG pCO2 POC ABG pO2 ABG pO2 ABG HCO3 ABG O2 Saturation ABG Base Excess ABG Hemoglobin ABG Oxyhemoglobin ABG Sodium ABG Potassium ABG Glucose Oxyhemoglobin Sodium Potassium Chloride Carbon Dioxide BUN Creatinine Glucose POC Glucose 186 H 145 H 152 H Lactic Acid Calcium Phosphorus Magnesium Ferritin Lactate Dehydrogenase C-Reactive Protein NT-Pro-B Natriuret Pep Total Protein Albumin Triglycerides Arterial Blood Glucose Ur Specific [place] Coronavirus (PCR) 04/03/21 04/03/21 04/03/21 04:14 04:14 05:27 WBC RBC 3.62 L Hgb 11.0 L Hct 34.0 L MCV MCHC RDW 16.3 H Plt Count Lymph % (Auto) [place] % (Auto) Lymph # (Auto) [place] # (Auto) Seg Neutrophils % Seg Neuts % (Manual) Lymphocytes % (Manual) Monocytes % (Manual) Nucleated RBC % Seg Neutrophils # Seg Neutrophils # Man Lymphocytes # (Manual) Monocytes # (Manual) PT INR APTT D-Dimer Heparin Anti-Xa Level ABG pH POC ABG pCO2 POC ABG pO2 ABG pO2 ABG HCO3 ABG O2 Saturation ABG Base Excess ABG Hemoglobin ABG Oxyhemoglobin ABG Sodium ABG Potassium ABG Glucose Oxyhemoglobin Sodium Potassium Chloride Carbon Dioxide 31 H BUN Creatinine 0.6 L Glucose 155 H POC Glucose 165 H Lactic Acid Calcium Phosphorus Magnesium Ferritin Lactate Dehydrogenase C-Reactive Protein NT-Pro-B Natriuret Pep Total Protein Albumin Triglycerides Arterial Blood Glucose Ur Specific [place] Coronavirus (PCR) 04/03/21 04/03/21 04/03/21 11:02 16:19 19:45 WBC RBC Hgb Hct MCV MCHC RDW Plt Count Lymph % (Auto) [place] % (Auto) Lymph # (Auto) [place] # (Auto) Seg Neutrophils % Seg Neuts % (Manual) Lymphocytes % (Manual) Monocytes % (Manual) Nucleated RBC % Seg Neutrophils # Seg Neutrophils # Man Lymphocytes # (Manual) Monocytes # (Manual) PT INR APTT D-Dimer Heparin Anti-Xa Level ABG pH POC ABG pCO2 POC ABG pO2 ABG pO2 ABG HCO3 ABG O2 Saturation ABG Base Excess ABG Hemoglobin ABG Oxyhemoglobin ABG Sodium ABG Potassium ABG Glucose Oxyhemoglobin Sodium Potassium Chloride Carbon Dioxide BUN Creatinine Glucose POC Glucose 161 H 180 H 136 H Lactic Acid Calcium Phosphorus Magnesium Ferritin Lactate Dehydrogenase C-Reactive Protein NT-Pro-B Natriuret Pep Total Protein Albumin Triglycerides Arterial Blood Glucose Ur Specific [place] Coronavirus (PCR) 04/04/21 04/04/21 04/04/21 00:21 04:33 04:33 WBC 13.1 H RBC 3.49 L Hgb 10.3 L Hct 32.7 L MCV MCHC RDW 16.1 H Plt Count Lymph % (Auto) [place] % (Auto) Lymph # (Auto) [place] # (Auto) Seg Neutrophils % Seg Neuts % (Manual) Lymphocytes % (Manual) Monocytes % (Manual) Nucleated RBC % Seg Neutrophils # Seg Neutrophils # Man Lymphocytes # (Manual) Monocytes # (Manual) PT INR APTT D-Dimer Heparin Anti-Xa Level ABG pH POC ABG pCO2 POC ABG pO2 ABG pO2 ABG HCO3 ABG O2 Saturation ABG Base Excess ABG Hemoglobin ABG Oxyhemoglobin ABG Sodium ABG Potassium ABG Glucose Oxyhemoglobin Sodium Potassium Chloride Carbon Dioxide 31 H BUN Creatinine 0.4 L Glucose 153 H POC Glucose 140 H Lactic Acid Calcium Phosphorus Magnesium Ferritin Lactate Dehydrogenase C-Reactive Protein NT-Pro-B Natriuret Pep Total Protein Albumin Triglycerides Arterial Blood Glucose Ur Specific [place] Coronavirus (PCR) 04/04/21 04/04/21 04/04/21 05:16 11:39 17:22 WBC RBC Hgb Hct MCV MCHC RDW Plt Count Lymph % (Auto) [place] % (Auto) Lymph # (Auto) [place] # (Auto) Seg Neutrophils % Seg Neuts % (Manual) Lymphocytes % (Manual) Monocytes % (Manual) Nucleated RBC % Seg Neutrophils # Seg Neutrophils # Man Lymphocytes # (Manual) Monocytes # (Manual) PT INR APTT D-Dimer Heparin Anti-Xa Level ABG pH POC ABG pCO2 POC ABG pO2 ABG pO2 ABG HCO3 ABG O2 Saturation ABG Base Excess ABG Hemoglobin ABG Oxyhemoglobin ABG Sodium ABG Potassium ABG Glucose Oxyhemoglobin Sodium Potassium Chloride Carbon Dioxide BUN Creatinine Glucose POC Glucose 152 H 154 H 198 H Lactic Acid Calcium Phosphorus Magnesium Ferritin Lactate Dehydrogenase C-Reactive Protein NT-Pro-B Natriuret Pep Total Protein Albumin Triglycerides Arterial Blood Glucose Ur Specific [place] Coronavirus (PCR) 04/04/21 04/04/21 04/05/21 20:14 23:16 04:15 WBC RBC 3.21 L Hgb 10.0 L Hct 30.3 L MCV MCHC RDW 16.4 H Plt Count Lymph % (Auto) [place] % (Auto) Lymph # (Auto) [place] # (Auto) Seg Neutrophils % Seg Neuts % (Manual) Lymphocytes % (Manual) Monocytes % (Manual) Nucleated RBC % Seg Neutrophils # Seg Neutrophils # Man Lymphocytes # (Manual) Monocytes # (Manual) PT INR APTT D-Dimer Heparin Anti-Xa Level ABG pH POC ABG pCO2 POC ABG pO2 ABG pO2 ABG HCO3 ABG O2 Saturation ABG Base Excess ABG Hemoglobin ABG Oxyhemoglobin ABG Sodium ABG Potassium ABG Glucose Oxyhemoglobin Sodium Potassium Chloride Carbon Dioxide BUN Creatinine Glucose POC Glucose 161 H 139 H Lactic Acid Calcium Phosphorus Magnesium Ferritin Lactate Dehydrogenase C-Reactive Protein NT-Pro-B Natriuret Pep Total Protein Albumin Triglycerides Arterial Blood Glucose Ur Specific [place] Coronavirus (PCR) 04/05/21 04/05/21 04/05/21 04:15 05:34 12:09 WBC RBC Hgb Hct MCV MCHC RDW Plt Count Lymph % (Auto) [place] % (Auto) Lymph # (Auto) [place] # (Auto) Seg Neutrophils % Seg Neuts % (Manual) Lymphocytes % (Manual) Monocytes % (Manual) Nucleated RBC % Seg Neutrophils # Seg Neutrophils # Man Lymphocytes # (Manual) Monocytes # (Manual) PT INR APTT D-Dimer Heparin Anti-Xa Level ABG pH POC ABG pCO2 POC ABG pO2 ABG pO2 ABG HCO3 ABG O2 Saturation ABG Base Excess ABG Hemoglobin ABG Oxyhemoglobin ABG Sodium ABG Potassium ABG Glucose Oxyhemoglobin Sodium Potassium Chloride 97.6 L Carbon Dioxide 32 H BUN Creatinine 0.5 L Glucose 147 H POC Glucose 145 H 173 H Lactic Acid Calcium Phosphorus Magnesium Ferritin Lactate Dehydrogenase C-Reactive Protein NT-Pro-B Natriuret Pep Total Protein Albumin Triglycerides Arterial Blood Glucose Ur Specific [place] Coronavirus (PCR) 04/05/21 04/05/21 04/05/21 17:35 21:07 23:15 WBC RBC Hgb Hct MCV MCHC RDW Plt Count Lymph % (Auto) [place] % (Auto) Lymph # (Auto) [place] # (Auto) Seg Neutrophils % Seg Neuts % (Manual) Lymphocytes % (Manual) Monocytes % (Manual) Nucleated RBC % Seg Neutrophils # Seg Neutrophils # Man Lymphocytes # (Manual) Monocytes # (Manual) PT INR APTT D-Dimer Heparin Anti-Xa Level ABG pH POC ABG pCO2 POC ABG pO2 ABG pO2 ABG HCO3 ABG O2 Saturation ABG Base Excess ABG Hemoglobin ABG Oxyhemoglobin ABG Sodium ABG Potassium ABG Glucose Oxyhemoglobin Sodium Potassium Chloride Carbon Dioxide BUN Creatinine Glucose POC Glucose 143 H 157 H 171 H Lactic Acid Calcium Phosphorus Magnesium Ferritin Lactate Dehydrogenase C-Reactive Protein NT-Pro-B Natriuret Pep Total Protein Albumin Triglycerides Arterial Blood Glucose Ur Specific [place] Coronavirus (PCR) 04/06/21 04/06/21 04/06/21 04:49 05:14 11:42 WBC RBC Hgb Hct MCV MCHC RDW Plt Count Lymph % (Auto) [place] % (Auto) Lymph # (Auto) [place] # (Auto) Seg Neutrophils % Seg Neuts % (Manual) Lymphocytes % (Manual) Monocytes % (Manual) Nucleated RBC % Seg Neutrophils # Seg Neutrophils # Man Lymphocytes # (Manual) Monocytes # (Manual) PT INR APTT D-Dimer Heparin Anti-Xa Level ABG pH POC ABG pCO2 57.4 H POC ABG pO2 55.1 L ABG pO2 ABG HCO3 ABG O2 Saturation ABG Base Excess ABG Hemoglobin 11.5 L ABG Oxyhemoglobin 87.5 L ABG Sodium ABG Potassium ABG Glucose Oxyhemoglobin Sodium Potassium Chloride Carbon Dioxide BUN Creatinine Glucose POC Glucose 145 H 171 H Lactic Acid Calcium Phosphorus Magnesium Ferritin Lactate Dehydrogenase C-Reactive Protein NT-Pro-B Natriuret Pep Total Protein Albumin Triglycerides Arterial Blood Glucose Ur Specific [place] Coronavirus (PCR) 04/06/21 04/06/21 04/06/21 11:50 15:36 15:36 WBC RBC Hgb 10.4 L Hct 32.5 L MCV MCHC RDW Plt Count 444 H Lymph % (Auto) [place] % (Auto) Lymph # (Auto) [place] # (Auto) Seg Neutrophils % Seg Neuts % (Manual) Lymphocytes % (Manual) Monocytes % (Manual) Nucleated RBC % Seg Neutrophils # Seg Neutrophils # Man Lymphocytes # (Manual) Monocytes # (Manual) PT INR APTT 37.1 H D-Dimer Heparin Anti-Xa Level ABG pH 7.341 L POC ABG pCO2 POC ABG pO2 ABG pO2 108.9 H ABG HCO3 38.9 H ABG O2 Saturation ABG Base Excess 10.6 H ABG Hemoglobin 11.5 L ABG Oxyhemoglobin ABG Sodium ABG Potassium ABG Glucose Oxyhemoglobin Sodium Potassium Chloride Carbon Dioxide BUN Creatinine Glucose POC Glucose Lactic Acid Calcium Phosphorus Magnesium Ferritin Lactate Dehydrogenase C-Reactive Protein NT-Pro-B Natriuret Pep Total Protein Albumin Triglycerides Arterial Blood Glucose Ur Specific [place] Coronavirus (PCR) 04/06/21 04/07/21 04/07/21 17:57 00:30 00:32 WBC RBC Hgb Hct MCV MCHC RDW Plt Count Lymph % (Auto) [place] % (Auto) Lymph # (Auto) [place] # (Auto) Seg Neutrophils % Seg Neuts % (Manual) Lymphocytes % (Manual) Monocytes % (Manual) Nucleated RBC % Seg Neutrophils # Seg Neutrophils # Man Lymphocytes # (Manual) Monocytes # (Manual) PT INR APTT D-Dimer Heparin Anti-Xa Level < 0.10 L ABG pH POC ABG pCO2 POC ABG pO2 ABG pO2 ABG HCO3 ABG O2 Saturation ABG Base Excess ABG Hemoglobin ABG Oxyhemoglobin ABG Sodium ABG Potassium ABG Glucose Oxyhemoglobin Sodium Potassium Chloride Carbon Dioxide BUN Creatinine Glucose POC Glucose 151 H 149 H Lactic Acid Calcium Phosphorus Magnesium Ferritin Lactate Dehydrogenase C-Reactive Protein NT-Pro-B Natriuret Pep Total Protein Albumin Triglycerides Arterial Blood Glucose Ur Specific [place] Coronavirus (PCR) 04/07/21 04/07/21 04/07/21 05:34 06:08 06:08 WBC RBC 3.20 L Hgb 9.6 L Hct 29.8 L MCV MCHC RDW 16.0 H Plt Count 455 H Lymph % (Auto) [place] % (Auto) Lymph # (Auto) [place] # (Auto) Seg Neutrophils % Seg Neuts % (Manual) Lymphocytes % (Manual) Monocytes % (Manual) Nucleated RBC % Seg Neutrophils # Seg Neutrophils # Man Lymphocytes # (Manual) Monocytes # (Manual) PT INR APTT D-Dimer Heparin Anti-Xa Level ABG pH POC ABG pCO2 POC ABG pO2 ABG pO2 ABG HCO3 ABG O2 Saturation ABG Base Excess ABG Hemoglobin ABG Oxyhemoglobin ABG Sodium ABG Potassium ABG Glucose Oxyhemoglobin Sodium Potassium Chloride Carbon Dioxide 35 H BUN Creatinine 0.5 L Glucose 216 H POC Glucose 182 H Lactic Acid Calcium Phosphorus Magnesium Ferritin Lactate Dehydrogenase C-Reactive Protein NT-Pro-B Natriuret Pep Total Protein Albumin Triglycerides Arterial Blood Glucose Ur Specific [place] Coronavirus (PCR) 04/07/21 04/07/21 04/07/21 07:55 11:57 17:12 WBC RBC Hgb Hct MCV MCHC RDW Plt Count Lymph % (Auto) [place] % (Auto) Lymph # (Auto) [place] # (Auto) Seg Neutrophils % Seg Neuts % (Manual) Lymphocytes % (Manual) Monocytes % (Manual) Nucleated RBC % Seg Neutrophils # Seg Neutrophils # Man Lymphocytes # (Manual) Monocytes # (Manual) PT INR APTT D-Dimer Heparin Anti-Xa Level < 0.10 L ABG pH POC ABG pCO2 POC ABG pO2 ABG pO2 ABG HCO3 ABG O2 Saturation ABG Base Excess ABG Hemoglobin ABG Oxyhemoglobin ABG Sodium ABG Potassium ABG Glucose Oxyhemoglobin Sodium Potassium Chloride Carbon Dioxide BUN Creatinine Glucose POC Glucose 182 H 165 H Lactic Acid Calcium Phosphorus Magnesium Ferritin Lactate Dehydrogenase C-Reactive Protein NT-Pro-B Natriuret Pep Total Protein Albumin Triglycerides Arterial Blood Glucose Ur Specific [place] Coronavirus (PCR) 04/07/21 04/08/21 04/08/21 19:55 00:16 03:57 WBC RBC Hgb Hct MCV MCHC RDW Plt Count Lymph % (Auto) [place] % (Auto) Lymph # (Auto) [place] # (Auto) Seg Neutrophils % Seg Neuts % (Manual) Lymphocytes % (Manual) Monocytes % (Manual) Nucleated RBC % Seg Neutrophils # Seg Neutrophils # Man Lymphocytes # (Manual) Monocytes # (Manual) PT INR APTT D-Dimer Heparin Anti-Xa Level < 0.10 L ABG pH POC ABG pCO2 POC ABG pO2 ABG pO2 ABG HCO3 ABG O2 Saturation ABG Base Excess ABG Hemoglobin ABG Oxyhemoglobin ABG Sodium ABG Potassium ABG Glucose Oxyhemoglobin Sodium Potassium 5.8 H Chloride 95.5 L Carbon Dioxide 37 H BUN Creatinine 0.5 L Glucose 161 H POC Glucose 175 H Lactic Acid Calcium Phosphorus Magnesium Ferritin Lactate Dehydrogenase C-Reactive Protein NT-Pro-B Natriuret Pep Total Protein Albumin Triglycerides Arterial Blood Glucose Ur Specific [place] Coronavirus (PCR) 04/08/21 04/08/21 04/08/21 04:00 05:43 09:26 WBC RBC 3.25 L Hgb 9.9 L Hct 30.8 L MCV 95 H MCHC RDW 16.0 H Plt Count 487 H Lymph % (Auto) [place] % (Auto) Lymph # (Auto) [place] # (Auto) Seg Neutrophils % Seg Neuts % (Manual) Lymphocytes % (Manual) Monocytes % (Manual) Nucleated RBC % Seg Neutrophils # Seg Neutrophils # Man Lymphocytes # (Manual) Monocytes # (Manual) PT INR APTT D-Dimer Heparin Anti-Xa Level ABG pH POC ABG pCO2 POC ABG pO2 ABG pO2 ABG HCO3 ABG O2 Saturation ABG Base Excess ABG Hemoglobin ABG Oxyhemoglobin ABG Sodium ABG Potassium ABG Glucose Oxyhemoglobin Sodium Potassium Chloride Carbon Dioxide BUN Creatinine Glucose POC Glucose 162 H 164 H Lactic Acid Calcium Phosphorus Magnesium Ferritin Lactate Dehydrogenase C-Reactive Protein NT-Pro-B Natriuret Pep Total Protein Albumin Triglycerides Arterial Blood Glucose Ur Specific [place] Coronavirus (PCR) 04/08/21 11:53 WBC RBC Hgb Hct MCV MCHC RDW Plt Count Lymph % (Auto) [place] % (Auto) Lymph # (Auto) [place] # (Auto) Seg Neutrophils % Seg Neuts % (Manual) Lymphocytes % (Manual) Monocytes % (Manual) Nucleated RBC % Seg Neutrophils # Seg Neutrophils # Man Lymphocytes # (Manual) Monocytes # (Manual) PT INR APTT D-Dimer Heparin Anti-Xa Level ABG pH POC ABG pCO2 POC ABG pO2 ABG pO2 ABG HCO3 ABG O2 Saturation ABG Base Excess ABG Hemoglobin ABG Oxyhemoglobin ABG Sodium ABG Potassium ABG Glucose Oxyhemoglobin Sodium Potassium Chloride Carbon Dioxide BUN Creatinine Glucose POC Glucose 170 H Lactic Acid Calcium Phosphorus Magnesium Ferritin Lactate Dehydrogenase C-Reactive Protein NT-Pro-B Natriuret Pep Total Protein Albumin Triglycerides Arterial Blood Glucose Ur Specific [place] Coronavirus (PCR) Chest x-ray: image reviewed (improved lung volumes but persistent bilateral infiltrates) Allied health notes reviewed: nursing
--- NOTE | 2021-04-08 17:05 | Progress Note ---
Assessment and Plan Assessment and plan: This is a 61-year-old man with HTN and DM admitted with COVID-19 pneumonia, acute hypoxic respiratory failure, sepsis Neuro: Acute encephalopathy -Sedated with fentanyl drip -RASS goal 0 to -1 -Avoid delirium -On Seroquel and Librium -Seroquel increased to 250 twice daily -Scheduled Lortab for 7 days -Reorientation as needed -Maintain sleep-wake cycle -As needed analgesia -CT head shows no acute intracranial abnormality -Neurology consulted, appreciate recommendations Cardiac: h/o Hypertension -Cardiology consulted, appreciate recommendations -Blood pressure monitoring per protocol -Echocardiogram shows a mildly dilated ascending aorta, normal LV systolic function, mild concentric LVH, LVEF 60 to 65% -Antihypertensive regimen: Hydralazine, metoprolol, amlodipine Respiratory: Acute hypoxic respiratory failure -[facility] consulted, appreciate recommendations -Intubated on 03/10 with 7.50 ETT at 24 at the lips, s/p trach on 03/29 -A.m. vent settings: Assist-control rate 12, tidal volume 450, PEEP 10, FiO2 65% -See RT notes for titration -RT placed on CPAP 12/04 on 65% FiO2 -A.m. ABG noted -Albuterol as needed, Brovana Pulmicort -VAP bundle -SPO2 monitoring GI: Obesity, external hemorrhoids -24 hours -143 mL -PPI -NTR consulted for tube feedings -BR: Senokot, miralax -BM 04/06 -As needed Preparation H : Urinary retentionm hyperkalemia -Nephrology consulted, appreciate recommendations -Strict intake and output -Renally dose medications -Avoid nephrotoxic medications -Doxazosin increased to twice daily -K medically treated -trend BMP ID: Severe sepsis (POA), COVID-19 pneumonia, stenotrophomonas maltophilia and tracheal aspirate -Infectious disease consulted, appreciate recommendations -Antibiotic therapy with cefepime -Due to low procalcitonin and cultures remaining negative cefepime was discontinued -S/p remdesivir for 5 days -S/p Actemra 03/10/2021 -f/u blood culture -Monitor WBC and temperature curve -steroids tapered off -04/07 Per ID: if persistently febrile and WBC rises, reculture and then restart abx: IV Cefepime + Vancomycin Heme: Acute right upper extremity DVT , superficial thrombus in left gastrocnemius vein -Bilateral lower extremity ultrasound negative for DVT, superficial thrombus in left gastrocnemius vein -repeat BLE Doppler US show superficial thrombus -Repeat bilateral upper extremity ultrasound shows DVT in right upper extremity -Started on heparin drip -Titration per protocol -repeat BLE UE dopplar showed superficial thrombus within the gastrocnemius vein changed from previous study -CTA chest shows no gross pulm embolism -Trend CBC -SCDs to BLE while in bed -Transfuse hemoglobin less than 7 -Monitor for signs of bleeding Endo: h/o DM -Avoid hypoglycemia -SSI -Accu-Cheks q. 6 -Long-acting insulin, titrate as needed The high probability of a clinically significant, sudden or life threatening deterioration of the [multi] system(s) required my full and direct attention, intervention and personal management. The aggregate critical care time was [60] minutes. This time is in addition to time spent performing reported procedures but includes the following: [x] Data Review and interpretation [x] Patient assessment and monitoring of vital signs [x] Documentation [x] Medication orders and management Disposition Plan: icu Total Time Spent with Patient (Minutes): 60 History Interval history: This is a 61-year-old male with HTN and DM who presented to the emergency de partment on 03/09 with shortness of breath and hypoxia via EMS. Patient had apparently been feeling ill for proxy 1 week prior to mentation. Upon EMS arrival patient SPO2 was in the low 70s and improved to upper 80slow 90s on nonrebreather and he was transported to [facility] in the emergency department patient was noted to be hypoxic and placed on a BiPAP with improvement to mentation and hypoxia. CXR showed bilateral patchy infiltrates. Lab work showed leukocytosis, elevated D-dimer, hyponatremia, hypochloremia and elevated COVID-19 markers with elevated BNP. CTA chest showed no pulmonary embolism. Patient was admitted to the hospitalist service as a COVID-19 PUI and started on antibiotics and Decadron with consult to infectious disease. 03/09: The patient was seen and evaluated today, and he was found to be hemodynamically stable. The patient is currently on BiPAP for possible COVID-19 pneumonia. He was started on Lovenox 1mg/kg for DVT ppx in the setting of d- dimer > 10,000. Infectious Disease was consulted. The patient is pending a TTE. 03/10: No acute events overnight, patient was intubated in the afternoon transferred to ICU 03/11: Patient started on Lantus, free water flushes increased, propofol drip resumed and oral antihypertensive added. 03/12: lantus increased, k at 5, will monitor. I updated his family and his stated that he is not vaccinated. He does have HTN and she will call the RN to update home medications. She did say he takes bystolic and amlopine. She inquired about ventilator and lab work. She had no further questions. 03/13: KVNG overnight. Patient remains hyperglycemic, basal insulin adjusted and increased to Q12hrs. Patient is overall net positive since admit X1 dose of IV lasix, repeat BMP this afternoon. 03/14: Failed SAT this am due to increase agitation, tachycardia and hypertension. Remains on propofol and fentanyl gtt. Hyperkalemia treated with PO kayaxalate. Patient responded to IV lasix yesterday additional dose again today for a net negative balance. Repeat BMP this afternoon. Insulin adjusted for hyperglycemia. 03/15: Remains encephalopathic, not following commansd. Orders placed for CT head/Brain and Neuro consulted. Rectal bleeding subsided, most likely due to hemorrhoids. H&H is stable will continue to monitor. Kayaxexalate for high K, repeat labs 4 to 6hrs post treatment. 03/16: Still agiated this am, CT head with no acute Abn. CXR and ABG noted- evolving pna and worsening hypoxia, now with low grade fevers. Sputum culture ordered, IV Abx added, ID on cosult. 03/17: This am ABG noted, hypoxia improved. Continue to wean FiO2 as tolerated. Still with low grade fevers, on IV Abx per ID. Still with periods of confusion despite sedation, seroquel increased. F/u CXR in the am 03/18: still very agitated especially when off sedation, with hypertension and tachycardia. Continue sedation for RASS -2, PRN antihypertensive for SPB greater than 160. This febrile this am, continue current IV abx per ID 03/19: Patient afebrile overnight, continue IV Abx per ID. ABG also improved this am, continue to wean FIO2 as tolerated. PRN antihypertensive for hypertension. 03/20: Hyperkalemia treated with Kayexalate, Good discontinued, vancomycin and cefepime stopped started Bactrim by ID. Steroid taper started. 03/21: BB started for hypertension, Seroquel increased for agitation and Librium started no acute events reported overnight. CCM made vent changes 03/22: Adjustment to anxiolytics, respiratory rate on ventilator per CCM. Patient noted to have bleeding hemorrhoids with clot, requested RN to remove bowel management system and will order Preparation H. 03/23: Given no confirmed DVT or PE (only superficial thrombus noted on Dopplers) therapeutic Lovenox changed to prophylactic Lovenox. Started on doxazosin to help with retention. Consulted surgery for tracheostomy and propofol discontinued. 03/24: Surgery consult completed, patient changed to prophylaxis anticoagulation, started on doxazosin yesterday with plans to remove Good catheter in 48 hours. Patient with slight hypokalemia today and given Kayexalate. No acute events reported overnight. 03/25: No acute events reported overnight. Patient remains on fentanyl drip and on CPAP trial this morning. 03/26: no acute events reported overnight. placed on CPAP this AM, remains on fent/librium. scheduled for trach/peg this week. 03/27: Hypoglycemic this am, will decreased lantus to Qhs. Plan for possible Trach and Peg by Gen Surg this am. Case management to arrange possible LTAC placement 03/28: KVNG overnight. Tolerating PST this am. Plan for trach and PEG tomorrow by Gen. Surgery, NPO after midnight. 03/29: No significant changes overnight. Plan for trach and Peg today. Case management to arrange possible LTAC placement 03/30. S/p Trach and PEG, no complications noted. High residual yesterday despite NPO status, reglan added X2 days. Per RN no residual this am, patient is tolerating TF. Continue to advance TF as tolerated. Norvasc added for hypertension. Pitting edema also appreciated, some diuretic might be beneficial, will d/w CCM. Continue daily PST as tolerated. 03/31: Patient remains on the vent still on fentanyl gtt with periods of agitation. PRN analgesia added, plan to start weaning off fentanyl gtt. Febrile this am, completed IV abx course. Will panculture for now, ID is also following. 04/01: Still febrile overnight, cultures result pending, continue IV ABx per ID. Failed PST this am. Continue daily PST and vent wean per CCM. Case management to arrange possible placement. 04/02: KVNG overnight. Fevers improved overnight, continue to follow cultures data, IV ABx per ID. Continue daily PST and wean vent as per [facility]. 04/03: Given low procalcitonin, unchanged CXR and cultures with no growth cefepime was discontinued by ID. LTAC evaluation ongoing. No acute events reported overnight. 04/04: IV Lasix stopped today, Seroquel taper started, fentanyl drip on hold and steroids stopped. Pressure support trial again today. 04/05: Patient had to be restarted on fentanyl drip therefore Seroquel was increased back to 250 twice daily and he was started on scheduled narcotics and efforts to wean fentanyl drip. Doxazosin was increased to twice daily as patient still had retention issues on doxazosin once a day. Patient was denied LTAC placement. CPAP trial today. 04/06: Right upper extremity ultrasound obtained due to edema which showed DVT. Patient started on heparin drip. Overnight patient had hypoxia, tachypnea, tachycardia, hypotension and FiO2 was increased to 100%. RT titrating as tolerated. Plan was to start T-piece trials today. Patient has been denied LTAC placement. 04/07: BLE dopplar, continue lasix per [facility], CXR in AM. Increase in fio2 overnight d/t desaturation. Wean FiO2 as tolerated. 04/08: Patient remains on 65% FiO2, s/p Lasix for 3 doses, hyperkalemia noted today and medically treated. [facility] plans to consult heme/onc once FiO2 decreased. Remains on heparin gtt Hospitalist Physical - Physical exam Narrative exam: General appearance: Present: well-nourished, obese, other (sedated) - EENT Eyes: Present: PERRL, EOM intact ENT: hearing intact, clear oral mucosa - Neck Neck: Present: normal ROM - Respiratory Respiratory effort: normal Respiratory: bilateral: diminished - Cardiovascular Rhythm: regular Heart Sounds: Present: S1 & S2. Absent: systolic murmur, diastolic murmur - Extremities Extremities: no ischemia, pulses intact, pulses symmetrical, No edema, normal temperature, normal color Peripheral Pulses: within normal limits - Abdominal General gastrointestinal: soft, non-tender, non-distended, normal bowel sounds - Integumentary Integumentary: Present: warm, dry - Psychiatric Psychiatric: other - Neurologic Neurologic: other - Allied Health Allied health notes reviewed: nursing, RT - Constitutional Vitals: Temp Pulse Resp BP Pulse Ox 99.9 F H 115 H 29 H 122/67 93 04/08/21 12:00 04/08/21 16:30 04/08/21 16:00 04/08/21 16:30 04/08/21 16:35 General appearance: Present: no acute distress, well-nourished, obese, other (On the vent, on sedation) Results - Labs CBC & Chem 7: 04/08/21 04:00 04/08/21 03:57 Labs: Laboratory Last Values WBC 10.4 K/mm3 (4.5-11.0) 04/08/21 04:00 RBC 3.25 M/mm3 (3.65-5.03) L 04/08/21 04:00 Hgb 9.9 gm/dl (11.8-15.2) L 04/08/21 04:00 Hct 30.8 % (35.5-45.6) L 04/08/21 04:00 MCV 95 fl (84-94) H 04/08/21 04:00 MCH 30 pg (28-32) 04/08/21 04:00 MCHC 32 % (32-34) 04/08/21 04:00 RDW 16.0 % (13.2-15.2) H 04/08/21 04:00 Plt Count 487 K/mm3 (140-440) H 04/08/21 04:00 Lymph % (Auto) 7.6 % (13.4-35.0) L 03/31/21 13:30 [place] % (Auto) 9.5 % (0.0-7.3) H 03/31/21 13:30 Eos % (Auto) 4.1 % (0.0-4.3) 03/31/21 13:30 Baso % (Auto) 0.5 % (0.0-1.8) 03/31/21 13:30 Lymph # (Auto) 0.6 K/mm3 (1.2-5.4) L 03/31/21 13:30 [place] # (Auto) 0.7 K/mm3 (0.0-0.8) 03/31/21 13:30 Eos # (Auto) 0.3 K/mm3 (0.0-0.4) 03/31/21 13:30 Baso # (Auto) 0.0 K/mm3 (0.0-0.1) 03/31/21 13:30 Add Manual Diff Complete 03/10/21 04:29 Total Counted 100 03/10/21 04:29 Seg Neutrophils % 78.3 % (40.0-70.0) H 03/31/21 13:30 Seg Neuts % (Manual) 94.0 % (40.0-70.0) H 03/10/21 04:29 Band Neutrophils % 0 % 03/10/21 04:29 Lymphocytes % (Manual) 1.0 % (13.4-35.0) L 03/10/21 04:29 Reactive Lymphs % (Man) 0 % 03/10/21 04:29 Monocytes % (Manual) 5.0 % (0.0-7.3) 03/10/21 04:29 Eosinophils % (Manual) 0 % (0.0-4.3) 03/10/21 04:29 Basophils % (Manual) 0 % (0.0-1.8) 03/10/21 04:29 Metamyelocytes % 0 % 03/10/21 04:29 Myelocytes % 0 % 03/10/21 04:29 Promyelocytes % 0 % 03/10/21 04:29 Blast Cells % 0 % 03/10/21 04:29 Nucleated RBC % 3.0 % (0.0-0.9) H 03/10/21 04:29 Seg Neutrophils # 5.8 K/mm3 (1.8-7.7) 03/31/21 13:30 Seg Neutrophils # Man 19.4 K/mm3 (1.8-7.7) H 03/10/21 04:29 Band Neutrophils # 0.0 K/mm3 03/10/21 04:29 Lymphocytes # (Manual) 0.2 K/mm3 (1.2-5.4) L 03/10/21 04:29 Abs React Lymphs (Man) 0.0 K/mm3 03/10/21 04:29 Monocytes # (Manual) 1.0 K/mm3 (0.0-0.8) H 03/10/21 04:29 Eosinophils # (Manual) 0.0 K/mm3 (0.0-0.4) 03/10/21 04:29 Basophils # (Manual) 0.0 K/mm3 (0.0-0.1) 03/10/21 04:29 Metamyelocytes # 0.0 K/mm3 03/10/21 04:29 Myelocytes # 0.0 K/mm3 03/10/21 04:29 Promyelocytes # 0.0 K/mm3 03/10/21 04:29 Blast Cells # 0.0 K/mm3 03/10/21 04:29 WBC Morphology Not Reportable 03/10/21 04:29 Hypersegmented Neuts Not Reportable 03/10/21 04:29 Hyposegmented Neuts Not Reportable 03/10/21 04:29 Hypogranular Neuts Not Reportable 03/10/21 04:29 Smudge Cells Not Reportable 03/10/21 04:29 Toxic Granulation Not Reportable 03/10/21 04:29 Toxic Vacuolation Not Reportable 03/10/21 04:29 Dohle Bodies Not Reportable 03/10/21 04:29 Pelger-Huet Anomaly Not Reportable 03/10/21 04:29 Mely Rods Not Reportable 03/10/21 04:29 Platelet Estimate Consistent w auto 03/10/21 04:29 Clumped Platelets Not Reportable 03/10/21 04:29 Plt Clumps, EDTA Not Reportable 03/10/21 04:29 Large Platelets Not Reportable 03/10/21 04:29 Giant Platelets Not Reportable 03/10/21 04:29 Platelet Satelliting Not Reportable 03/10/21 04:29 Plt Morphology Comment Not Reportable 03/10/21 04:29 RBC Morphology Normal 03/10/21 04:29 Dimorphic RBCs Not Reportable 03/10/21 04:29 Polychromasia Not Reportable 03/10/21 04:29 Hypochromasia Not Reportable 03/10/21 04:29 Poikilocytosis Not Reportable 03/10/21 04:29 Anisocytosis Not Reportable 03/10/21 04:29 Microcytosis Not Reportable 03/10/21 04:29 Macrocytosis Not Reportable 03/10/21 04:29 Spherocytes Not Reportable 03/10/21 04:29 Pappenheimer Bodies Not Reportable 03/10/21 04:29 Sickle Cells Not Reportable 03/10/21 04:29 Target Cells Not Reportable 03/10/21 04:29 Tear Drop Cells Not Reportable 03/10/21 04:29 Ovalocytes Not Reportable 03/10/21 04:29 Helmet Cells Not Reportable 03/10/21 04:29 [place] Bodies Not Reportable 03/10/21 04:29 [place] Rings Not Reportable 03/10/21 04:29 [place] Cells Not Reportable 03/10/21 04:29 Bite Cells Not Reportable 03/10/21 04:29 Crenated Cell Not Reportable 03/10/21 04:29 Elliptocytes Not Reportable 03/10/21 04:29 Acanthocytes (Spur) Not Reportable 03/10/21 04:29 Rouleaux Not Reportable 03/10/21 04:29 Hemoglobin C Crystals Not Reportable 03/10/21 04:29 Schistocytes Not Reportable 03/10/21 04:29 Malaria parasites Not Reportable 03/10/21 04:29 [place] Bodies Not Reportable 03/10/21 04:29 Hem Pathologist Commnt No 03/10/21 04:29 PT 13.6 Sec. (12.2-14.9) 04/06/21 15:36 INR 0.94 (0.87-1.13) 04/06/21 15:36 APTT 37.1 Sec. (24.2-36.6) H 04/06/21 15:36 D-Dimer 1359.12 ng/mlDDU (0-234) H 03/17/21 04:40 Heparin Anti-Xa Level 0.58 U.I./ml (0.3-0.7) 04/08/21 03:45 ABG pH 7.341 pH Units (7.350-7.450) L 04/06/21 11:50 POC ABG pCO2 57.4 mmHg (32.0-48.0) H 04/06/21 04:49 ABG pCO2 73.5 mm Hg 04/06/21 11:50 POC ABG pO2 55.1 mmHg (83-108) L 04/06/21 04:49 ABG pO2 108.9 mm Hg (80.0-90.0) H 04/06/21 11:50 POC ABG HCO3 36.2 04/06/21 04:49 ABG HCO3 38.9 mmol/L (20.0-26.0) H 04/06/21 11:50 ABG O2 Saturation 97.4 % (95.0-99.0) 04/06/21 11:50 ABG O2 Content 15.6 (0.0-44) 04/06/21 11:50 POC ABG Base Excess 10.0 04/06/21 04:49 ABG Base Excess 10.6 mmol/L (-2.0-3.0) H 04/06/21 11:50 ABG Hemoglobin 11.5 gm/dl (14.0-18.0) L 04/06/21 11:50 ABG Oxyhemoglobin 87.5 (94-98) L 04/06/21 04:49 ABG Carboxyhemoglobin 1.5 % (0.0-5.0) 04/06/21 11:50 ABG Methemoglobin 0.7 % (0.0-1.5) 04/06/21 11:50 ABG Sodium 134.2 mmol/L (136.0-145.0) L 03/12/21 21:54 ABG Potassium 4.9 mmol/L (3.40-4.50) H 03/12/21 21:54 ABG Chloride 99.0 mmol/L (98-107) 03/12/21 21:54 ABG Glucose 306 mg/dL (65-95) H 03/12/21 21:54 Oxyhemoglobin 95.3 % (95.0-99.0) 04/06/21 11:50 Carboxyhemoglobin 0.8 (0.5-1.5) 04/06/21 04:49 FiO2 70 % 04/06/21 11:50 FiO2 % 40.0 04/06/21 04:49 Sodium 137 mmol/L (137-145) 04/08/21 03:57 Potassium 5.8 mmol/L (3.6-5.0) H 04/08/21 03:57 Chloride 95.5 mmol/L (98-107) L 04/08/21 03:57 Carbon Dioxide 37 mmol/L (22-30) H 04/08/21 03:57 Anion Gap 10 mmol/L 04/08/21 03:57 BUN 18 mg/dL (9-20) 04/08/21 03:57 Creatinine 0.5 mg/dL (0.8-1.3) L 04/08/21 03:57 Estimated GFR > 60 ml/min 04/08/21 03:57 BUN/Creatinine Ratio 36 % 04/08/21 03:57 Glucose 161 mg/dL (75-100) H 04/08/21 03:57 POC Glucose 170 mg/dL (70-105) H 04/08/21 11:53 Lactic Acid 1.90 mmol/L (0.7-2.0) 03/08/21 23:51 Calcium 8.8 mg/dL (8.4-10.2) 04/08/21 03:57 Phosphorus 3.30 mg/dL (2.5-4.5) 04/08/21 03:57 Magnesium 2.30 mg/dL (1.7-2.3) 04/08/21 03:57 Ferritin 976.4 ng/mL (30.0-300.0) H 03/15/21 04:00 Total Bilirubin 0.20 mg/dL (0.1-1.2) 03/12/21 08:03 AST 10 units/L (5-40) 03/12/21 08:03 ALT 16 units/L (7-56) 03/12/21 08:03 Alkaline Phosphatase 77 units/L (35-129) 03/12/21 08:03 Lactate Dehydrogenase 630 units/L (91-180) H 03/15/21 06:06 C-Reactive Protein 0.40 mg/dL (0.00-1.30) 03/17/21 04:40 NT-Pro-B Natriuret Pep 1053 pg/mL (0-900) H 03/08/21 20:24 Total Protein 6.0 g/dL (6.3-8.2) L 03/12/21 08:03 Albumin 2.9 g/dL (3.9-5) L 03/12/21 08:03 Albumin/Globulin Ratio 0.9 % 03/12/21 08:03 Triglycerides 305 mg/dL (2-149) H 03/22/21 07:26 Procalcitonin 0.17 ng/mL (<0.15) 04/01/21 07:16 Arterial Blood Glucose 306 mg/dL (65-95) H 03/12/21 21:54 Arterial Blood Ionized Calcium 5.0 mg/dL (4.6-5.3) 03/12/21 21:54 Urine Color Yellow (Yellow) 03/09/21 04:10 Urine Turbidity Slightly-cloudy (Clear) 03/09/21 04:10 Urine pH 5.0 (5.0-7.0) 03/09/21 04:10 Ur Specific [place] 1.041 (1.003-1.030) H 03/09/21 04:10 Urine Protein 100 mg/dl mg/dL (Negative) 03/09/21 04:10 Urine Glucose (UA) Neg mg/dL (Negative) 03/09/21 04:10 Urine Ketones Neg mg/dL (Negative) 03/09/21 04:10 Urine Blood Mod (Negative) 03/09/21 04:10 Urine Nitrite Neg (Negative) 03/09/21 04:10 Urine Bilirubin Neg (Negative) 03/09/21 04:10 Urine Urobilinogen 2.0 mg/dL (<2.0) 03/09/21 04:10 Ur Leukocyte Esterase Neg (Negative) 03/09/21 04:10 Urine WBC (Auto) 4.0 /HPF (0.0-6.0) 03/09/21 04:10 Urine RBC (Auto) 1.0 /HPF (0.0-6.0) 03/09/21 04:10 Urine Bacteria (Auto) 1+ /HPF (Negative) 03/09/21 04:10 Urine Mucus Few /HPF 03/09/21 04:10 Coronavirus (PCR) Positive (Negative) A 03/09/21 08:00 Miscellaneous Test Flexitest 1 03/16/21 13:14 Good/IV: Voiding Method Indwelling Catheter Active Medications - Current Medications Current Medications: Generic Name Dose Route Start Last Admin Trade Name Freq PRN Reason Stop Dose Admin Acetaminophen 650 mg 03/09/21 01:26 04/07/21 21:40 Acetaminophen 325 Mg Tab PO 650 mg Q4H PRN Administration Pain MILD(1-3)/Fever >100.5/RAYO Albuterol 2.5 mg 03/09/21 01:26 03/18/21 21:06 Albuterol 2.5 Mg/3 Ml Nebu IH 2.5 mg Q4HRT PRN Administration Shortness Of Breath Amlodipine Besylate 5 mg 03/30/21 10:00 04/08/21 09:22 Amlodipine 5 Mg Tab PO 5 mg QDAY BLANCA Administration Arformoterol Tartrate 15 mcg 03/11/21 20:00 04/08/21 09:15 Arformoterol 15 Mcg/2 Ml Nebu IH 15 mcg Q12HRT BLANCA Administration Bisacodyl 10 mg 03/26/21 13:43 03/26/21 13:51 Bisacodyl 10 Mg Rect Supp MD 10 mg QDAY PRN Administration Constipation Budesonide 0.5 mg 04/06/21 20:00 04/07/21 21:01 Budesonide 0.5 Mg/2 Ml Nebu IH 0.5 mg Q12HRT BLANCA Administration Chlordiazepoxide HCl 75 mg 03/22/21 18:00 04/08/21 11:30 Chlordiazepoxide 25 Mg Cap PO 75 mg Q6HR BLANCA Administration Dextrose 0 ml 03/20/21 10:52 Dextrose 10% *Hypoglycemia IV PRN PRN Hypoglycemia Doxazosin Mesylate 1 mg 04/05/21 22:00 04/08/21 09:22 Doxazosin 1 Mg Tab PO 1 mg BID BLANCA Administration Famotidine 20 mg 03/12/21 22:00 04/08/21 09:22 Famotidine 20 Mg Tab FEEDTUBE 20 mg BID BLANCA Administration Fentanyl 1 applic 03/31/21 15:00 04/06/21 11:20 Fentanyl 75 Mcg/Hr Patch 72hr TD 1 applic Q3D BLANCA Administration Fentanyl 50 mcg 04/04/21 17:00 04/06/21 02:44 Fentanyl 100 Mcg/2 Ml Inj IV 50 mcg Q10MIN PRN Administration ANALGESIA Haloperidol Lactate 5 mg 04/04/21 15:09 04/04/21 15:18 Haloperidol Lactate 5 Mg/1 Ml Inj IV 04/09/21 15:08 5 mg Q6H PRN Administration Agitation Heparin Sodium (Porcine) 4,900 unit 04/07/21 01:47 04/07/21 20:37 Heparin 10,000 Units/10 Ml Vial 40 unit/kg (4900 unit) 4,900 unit IV Administration Q6H PRN Anti-Xa Assay < 0.1 units/ml Hydralazine HCl 50 mg 03/23/21 14:26 04/08/21 14:20 Hydralazine 25 Mg Tab PO 50 mg Q8HR BLANCA Administration Hydrophilic Ointment 1 applic 03/10/21 15:39 Lip Therapy Vaseline TP Q2HR PRN Dry Lips Fentanyl Citrate 2,000 mcg in 100 mls @ 6.1 mls/hr 04/04/21 17:00 04/08/21 12:20 Fentanyl Drip Premix IV 1 mcg/kg/hr TITR BLANCA 6.1 mls/hr Administration Protocol 1 MCG/KG/HR Heparin Sodium/Sodium Chloride 25,000 unit in 500 mls @ 30 mls/hr 04/06/21 16:00 04/08/21 08:30 Heparin/ 0.45% Nacl-25,000 Unit/500 Ml IV 2,550 units/hr TITR BLANCA 51 mls/hr Administration Protocol 1,500 UNITS/HR Insulin Glargine 18 units 04/07/21 22:00 04/07/21 21:42 Insulin Glargine 100 Units/Ml SUB-Q 18 units QHS BLANCA Administration Insulin Human Lispro 0 unit 03/11/21 18:00 04/08/21 12:30 Insulin Lispro 100 Unit/Ml SUB-Q 3 unit Q6HR [facility] Administration Protocol Metoprolol Tartrate 12.5 mg 03/21/21 22:00 04/08/21 09:23 Metoprolol Tartrate 25 Mg Tab PO 12.5 mg BID BLANCA Administration Midazolam HCl 2 mg 03/15/21 08:49 04/06/21 04:04 Midazolam 2 Mg/2 Ml Inj IV 2 mg Q2H PRN Administration VENT SYNCHRONY Multi-Ingred Cream/Lotion/Oil/Oint 1 applic 03/10/21 15:39 Mineral Oil/Petrolatum, White Ophth Oint 3.5 Gm OU Q4HR PRN Dry Eye(s) Ondansetron HCl 4 mg 03/09/21 01:26 Ondansetron 4 Mg/2 Ml Inj IV Q8H PRN Nausea And Vomiting Oxycodone HCl 5 mg 04/05/21 14:00 04/08/21 14:20 Oxycodone 5 Mg Tab PO 5 mg TID BLANCA Administration Phenyleph/Shark Oil/Min Oil/Petrol 1 applic 03/22/21 17:35 04/06/21 04:04 Pe/Mo/Pet,Wh 10 Applic/28 Gm Tube MD 1 applic Q6HR PRN Administration Hemorrhoids Polyethylene Glycol 17 gm 04/02/21 10:00 04/08/21 09:21 Polyethylene Glycol 3350 17 Gm Powder FEEDTUBE 17 gm QDAY BLANCA Administration Quetiapine Fumarate 200 mg 04/04/21 22:00 04/08/21 09:33 Quetiapine 200 Mg Tab PO 200 mg BID BLANCA Administration Quetiapine Fumarate 50 mg 04/05/21 14:00 04/08/21 09:22 Quetiapine 25 Mg Tab PO 50 mg BID BLANCA Administration Senna/Docusate Sodium 2 tab 04/02/21 10:00 04/08/21 09:21 Sennosides/Docusate Sodium 8.6/50 Mg Tab FEEDTUBE 2 tab BID BLANCA Administration Sodium Chloride 10 ml 03/09/21 10:00 04/08/21 09:21 Sodium Chloride 0.9% 10 Ml Flush Syringe IV 10 ml BID BLANCA Administration Sodium Chloride 10 ml 03/09/21 01:26 04/02/21 21:13 Sodium Chloride 0.9% 10 Ml Flush Syringe IV 10 ml PRN PRN Administration LINE FLUSH Sodium Chloride 10 ml 03/20/21 09:48 Sodium Chloride 0.9% 50 Ml Ivpb IV PRN PRN FLUSH Nutrition/Malnutrition Assess - Dietary Evaluation Nutrition/Malnutrition Findings: Nutrition Notes Start: 03/09/21 08:49 Freq: Status: Active Protocol: Document 04/07/21 14:55 [facility] (Rec: 04/07/21 14:58 [facility] [id number]) Nutrition Notes Initial or Follow up Reassessment Current Diagnosis Diabetes,Sepsis,Hypertension, Respiratory Failure Other Pertinent Diagnosis COVID-19, Bilateral Pneumonia. Current Diet TF-Glucerna 1.2 at 70 ml/hr Labs/Tests BG 216 Pertinent Medications Heparin gtt, Miralax, Senokot Height 5 ft 11 in Weight 122 kg [place] Body Weight (kg) 78.18 BMI 37.5 Weight Status Obese Subjective/Other Information Pt remains on vent support. Per RN, pt tolerating TF at goal rate. Percent of energy/protein needs met: 82% energy 78% pro Burn Absent Trauma Absent #1 Nutrition Diagnosis Inadequate oral intake Diagnosis Progress(for reassessment Continues documentation) Is patient on ventilator? Yes Is Patient Ambulatory and/or Out of Bed No REE-([place]-confined to bed) 4669.140 Calculation Used for Recommendations 70-80% energy needs Additional Notes Energy needs: 7225-1417 kcal/ day Pro needs 1.3g/kg adjBW: 130g/ day Fluid needs 1ml/kcal Nutrition Intervention Nutrition Support: Continue Glucerna 1.2 at 70ml/ hr with 110ml water flush q4h. Kcal 2,016 Protein (gm) 101 Carbohydrates (gm) 192 Fat (gm) 101 Fluid (mL) 1,352 Fiber (gm) 27 Goal #1 TF tolerance Goal #2 TF to meet at least 75% energy and pro needs Follow-Up By: 04/14/21 Additional Comments F/U: stable TF, vent status, wt
[2021-04-08] MEDS: HALOPERIDOL LACTATE 5 MG/1 ML INJ IV PRN (17:41)
[2021-04-08] MEDS: fentaNYL 100 MCG/2 ML INJ IV PRN (18:11)
[2021-04-08] MEDS: BUDESONIDE 0.5 MG/2 ML NEBU IH SCH (19:56)
[2021-04-08] MEDS: INSULIN GLARGINE 100 UNITS/ML SUB-Q SCH (21:04)
[2021-04-09] MEDS: INSULIN LISPRO 100 UNIT/ML SUB-Q SCH ×4 (00:07→17:47)
[2021-04-09] MEDS: chlordiazePOXIDE 25 MG CAP PO SCH ×4 (00:08→17:47)
[2021-04-09] MEDS: fentaNYL DRIP Premix 2,000 MCG/100 ML BAG IV SCH ×2 (04:19→18:28)
[2021-04-09] MEDS: HEPARIN/ 0.45% NACL DRIP 25,000 UNIT/500 ML BAG IV SCH ×2 (04:26→13:38)
[2021-04-09 04:52] LABS: Hematocrit 27.8 % (35.5-45.6); Hemoglobin 8.9 gm/dl (11.8-15.2); Mean Corpuscular HGB Conc 32 % (32-34); Mean Corpuscular Volume 94 fl (84-94); Platelet Count 485 K/mm3 (140-440); Red Blood Count 2.97 M/mm3 (3.65-5.03); Red Cell Distribution Width 15.8 % (13.2-15.2)
[2021-04-09 05:06] LABS: Blood Urea Nitrogen 21 mg/dL (9-20); Calcium 9.1 mg/dL (8.4-10.2); Hemolysis Index 2
[2021-04-09 05:10] LABS: BUN/Creatinine Ratio 42
[2021-04-09] MEDS: hydrALAZINE 25 MG TAB PO SCH ×3 (05:35→21:08)
[2021-04-09] MEDS: BUDESONIDE 0.25 MG/2 ML NEBU IH SCH (08:30)
[2021-04-09] MEDS: ARFORMOTEROL 15 MCG/2 ML NEBU IH SCH ×2 (08:30→19:46)
[2021-04-09] MEDS: oxyCODONE 5 MG TAB PO SCH ×3 (08:40→21:08)
[2021-04-09] MEDS: QUEtiapine 200 MG TAB PO SCH ×2 (09:10→21:09)
[2021-04-09] MEDS: POLYETHYLENE GLYCOL 3350 17 GM POWDER FEEDTUBE SCH (09:10)
[2021-04-09] MEDS: QUEtiapine 25 MG TAB PO SCH ×2 (09:10→21:09)
[2021-04-09] MEDS: amLODIPine 5 MG TAB PO SCH (09:10)
[2021-04-09] MEDS: FAMOTIDINE 20 MG TAB FEEDTUBE SCH ×2 (09:10→21:09)
[2021-04-09] MEDS: METOPROLOL TARTRATE 25 MG TAB PO SCH ×2 (09:10→21:07)
[2021-04-09] MEDS: DOXAZOSIN 1 MG TAB PO SCH (09:11)
[2021-04-09] MEDS: SENNOSIDES/DOCUSATE SODIUM 8.6/50 MG TAB FEEDTUBE SCH ×2 (09:11→21:08)
[2021-04-09] MEDS: fentaNYL 75 MCG/HR PATCH 72HR TD SCH (09:50)
[2021-04-09] MEDS ORDERED: SODIUM PHOSPHATE 30 MMOL in SODIUM CHLORIDE 0.9% 500 ML 500 ML IV ONE (11:30)
--- NOTE | 2021-04-09 13:29 | Progress Note ---
Assessment and Plan Acute hypoxemic respiratory failure, on continuous noninvasive ventilation COVID-19 infection Bilateral pneumonia History of diabetes Obesity Hypertension Leukocytosis Possible venous thromboembolic phenomena with significantly elevated D-dimers DM II Elevated serum inflammatory markers to include CRP levels, ferritin and LDH - hyperkalemia resolved - FiO2 redyuced to 40% - ABG at 9pm tonight - continue full anticoagulation for DVT acutely (consider heme/onc input re: upper extremity DVT Rx) - keep peep at 10 - follow clinically, monitor WBC / Fevers - continue LTAC evaluation - continue care as below otherwise; - continue Daily SAT and SBT assessment as tolerated - continue to wean supplemental oxygen for target O2 sat's > 90% acutely - VAP bundle addressed - continue lung protective strategies - continue bronchodilators with routiune trach care and pulmonary hygiene per RT - wean per pulmonary driven protocols otherwise - continue accuchecks with glycemic control per SSI (While critically ill target blood glucose of 140-180 mg/dL; avoid hypoglycemia) - sedation prn for target RASS 0 to -1 - avoid nephrotoxins, renally dose all medications - avoid benzodiazepine's, reduce the possibility of delirium - AB's per ID rec's - prn analgesia per pain score - Maintenance of sleep-wake cycle, avoid delirium - G.I. & VTE prophylaxis - PT/OT/ROM exercises - mobility protocols for pressure ulcer prophylaxis - Monitor hemodynamics closely - continue other care per attending / other consultants - discharge planning ongoing concurrently COVID SPECIFIC INTERVENTIONS - Remdesivir as per ID/Pulmonary developed protocols (received) - continue systemic steroids for severe COVID-19 infection empirically (Decadron) - follow repeat COVID tests results - zinc and vitamin C supplementation - Monitor inflammatory markers per facility protocol - ferritin, Ddimer, CRP - therapeutic anticoagulation per system Protocol based on d-dimer and clinical considerations (treatment dose) - contact and airborne isolation discontinued .... Re-evaluate in am & prn CONDITION: CRITICAL PROGNOSIS: GUARDED CODE STATUS: FULL CODE The high probability of a clinically significant, sudden or life-threatening deterioration of the [respiratory, cardiovascular & hematologic] system(s) required my full and direct attention, intervention and personal management. The aggregate critical care time was [34] minutes without overlap. Time includes spent on; [x] Data Review and interpretation [x] Patient assessment and monitoring of vital signs [x] Documentation [x] Medication orders and management Subjective Date of service: 04/09/21 Principal diagnosis: COVID-19 infection; DM II; Bilateral pneumonia; Obesity; HTN Interval history: Patient is seen today for: Acute hypoxemic respiratory failure; COVID-19 infection; DM II; Bilateral pneumonia; Obesity; HTN Seen and examined at bedside; 24hour events reviewed; nursing and respiratory care staff consulted; no adverse overnight events reported to me; resting in bed; remains on MVS; oxygenation better with O2 sat's 100% on 55% FiO2; calm; no emesis or overt aspiration; no gross bleeding; AMS is persistent Objective Vital Signs - 12hr 04/09/21 04/09/21 04/09/21 02:00 03:00 03:23 Temperature 100.4 F H Pulse Rate 102 H 102 H Pulse Rate [ From Monitor] Respiratory 25 H 26 H Rate Blood Pressure 111/56 112/59 O2 Sat by Pulse 93 94 Oximetry O2 Sat by Pulse Oximetry [ Assessment] 04/09/21 04/09/21 04/09/21 04:00 04:20 05:00 Temperature 99.0 F Pulse Rate 108 H 108 H 107 H Pulse Rate [ From Monitor] Respiratory 20 22 30 H Rate Blood Pressure 136/74 134/76 O2 Sat by Pulse 93 Oximetry O2 Sat by Pulse Oximetry [ Assessment] 04/09/21 04/09/21 04/09/21 05:11 05:12 05:35 Temperature Pulse Rate 106 H 105 H Pulse Rate [ From Monitor] Respiratory Rate Blood Pressure 134/76 140/72 O2 Sat by Pulse 96 Oximetry O2 Sat by Pulse 95 Oximetry [ Assessment] 04/09/21 04/09/21 04/09/21 06:00 07:00 08:00 Temperature 99.0 F Pulse Rate 103 H 108 H 107 H Pulse Rate [ 107 H From Monitor] Respiratory 35 H 39 H 35 H Rate Blood Pressure 127/65 141/84 151/78 O2 Sat by Pulse 98 99 99 Oximetry O2 Sat by Pulse Oximetry [ Assessment] 04/09/21 04/09/21 04/09/21 08:15 08:25 09:00 Temperature Pulse Rate 111 H 107 H Pulse Rate [ From Monitor] Respiratory 30 H Rate Blood Pressure 149/78 149/83 O2 Sat by Pulse 100 100 Oximetry O2 Sat by Pulse 99 Oximetry [ Assessment] 04/09/21 04/09/21 04/09/21 09:10 09:11 10:00 Temperature Pulse Rate 109 H 109 H 100 H Pulse Rate [ From Monitor] Respiratory 27 H Rate Blood Pressure 149/83 149/83 112/58 O2 Sat by Pulse 98 Oximetry O2 Sat by Pulse Oximetry [ Assessment] 04/09/21 11:00 Temperature Pulse Rate 95 H Pulse Rate [ From Monitor] Respiratory 24 Rate Blood Pressure 114/61 O2 Sat by Pulse 99 Oximetry O2 Sat by Pulse Oximetry [ Assessment] Constitutional: no acute distress, agitated, other (elderly obese male with mildly increased respiratory effort at rest) Eyes: non-icteric ENT: oropharynx moist, other (+ midline tracheostomy) Neck: supple, no lymphadenopathy, no JVD, other (large circumference) Effort: mildly labored Ascultation: Bilateral: diminished breath sounds, rales Percussion: Bilateral: not dull Cardiovascular: regular rate and rhythm, other (tachycardia, S1,S2) Gastrointestinal: normoactive bowel sounds, soft, non-tender, non-distended (protuberant) Integumentary: normal Extremities: no cyanosis, pulses normal, no ischemia or petechiae, edema (upper extremities), other Neurologic: non-focal exam (grossly), pupils equal and round, other (sedated) Psychiatric: other (unable to assess re: AMS) CBC and BMP: 04/09/21 04:21 04/09/21 04:21 ABG, PT/INR, D-dimer: ABG ABG pH 7.341 pH Units (7.350-7.450) L 04/06/21 11:50 POC ABG pCO2 57.4 mmHg (32.0-48.0) H 04/06/21 04:49 ABG pCO2 73.5 mm Hg 04/06/21 11:50 POC ABG pO2 55.1 mmHg (83-108) L 04/06/21 04:49 ABG pO2 108.9 mm Hg (80.0-90.0) H 04/06/21 11:50 POC ABG HCO3 36.2 04/06/21 04:49 ABG O2 Saturation 97.4 % (95.0-99.0) 04/06/21 11:50 PT/INR, D-dimer PT 13.6 Sec. (12.2-14.9) 04/06/21 15:36 INR 0.94 (0.87-1.13) 04/06/21 15:36 D-Dimer 1359.12 ng/mlDDU (0-234) H 03/17/21 04:40 Abnormal lab findings: Abnormal Labs 03/08/21 03/08/21 03/08/21 20:24 20:24 20:24 WBC 22.6 H RBC 5.44 H Hgb 15.7 H Hct 49.2 H MCV MCHC RDW Plt Count Lymph % (Auto) Andrew % (Auto) Lymph # (Auto) Andrew # (Auto) Seg Neutrophils % Seg Neuts % (Manual) 83.0 H Lymphocytes % (Manual) 9.0 L Monocytes % (Manual) 8.0 H Nucleated RBC % Seg Neutrophils # Seg Neutrophils # Man 18.8 H Lymphocytes # (Manual) Monocytes # (Manual) 1.8 H PT 16.1 H INR 1.17 H APTT D-Dimer > 17643 H Heparin Anti-Xa Level ABG pH POC ABG pCO2 POC ABG pO2 ABG pO2 ABG HCO3 ABG O2 Saturation ABG Base Excess ABG Hemoglobin ABG Oxyhemoglobin ABG Sodium ABG Potassium ABG Glucose Oxyhemoglobin Sodium 136 L Potassium Chloride 93.9 L Carbon Dioxide BUN 29 H Creatinine Glucose 208 H POC Glucose Lactic Acid Calcium Phosphorus Magnesium Ferritin Lactate Dehydrogenase 624 H C-Reactive Protein 18.00 H NT-Pro-B Natriuret Pep 1053 H Total Protein Albumin Triglycerides Arterial Blood Glucose Ur Specific [place] Coronavirus (PCR) 03/08/21 03/08/21 03/09/21 20:24 20:24 04:10 WBC RBC Hgb Hct MCV MCHC RDW Plt Count Lymph % (Auto) Andrew % (Auto) Lymph # (Auto) Andrew # (Auto) Seg Neutrophils % Seg Neuts % (Manual) Lymphocytes % (Manual) Monocytes % (Manual) Nucleated RBC % Seg Neutrophils # Seg Neutrophils # Man Lymphocytes # (Manual) Monocytes # (Manual) PT INR APTT D-Dimer Heparin Anti-Xa Level ABG pH POC ABG pCO2 POC ABG pO2 ABG pO2 ABG HCO3 ABG O2 Saturation ABG Base Excess ABG Hemoglobin ABG Oxyhemoglobin ABG Sodium ABG Potassium ABG Glucose Oxyhemoglobin Sodium Potassium Chloride Carbon Dioxide BUN Creatinine Glucose POC Glucose Lactic Acid 2.10 H* Calcium Phosphorus Magnesium Ferritin 877.5 H Lactate Dehydrogenase C-Reactive Protein NT-Pro-B Natriuret Pep Total Protein Albumin Triglycerides Arterial Blood Glucose Ur Specific [place] 1.041 H Coronavirus (PCR) 03/09/21 03/09/21 03/09/21 07:46 08:00 13:01 WBC RBC Hgb Hct MCV MCHC RDW Plt Count Lymph % (Auto) Andrew % (Auto) Lymph # (Auto) Andrew # (Auto) Seg Neutrophils % Seg Neuts % (Manual) Lymphocytes % (Manual) Monocytes % (Manual) Nucleated RBC % Seg Neutrophils # Seg Neutrophils # Man Lymphocytes # (Manual) Monocytes # (Manual) PT INR APTT D-Dimer Heparin Anti-Xa Level ABG pH POC ABG pCO2 POC ABG pO2 ABG pO2 ABG HCO3 ABG O2 Saturation ABG Base Excess ABG Hemoglobin ABG Oxyhemoglobin ABG Sodium ABG Potassium ABG Glucose Oxyhemoglobin Sodium Potassium Chloride Carbon Dioxide BUN Creatinine Glucose POC Glucose 191 H 182 H Lactic Acid Calcium Phosphorus Magnesium Ferritin Lactate Dehydrogenase C-Reactive Protein NT-Pro-B Natriuret Pep Total Protein Albumin Triglycerides Arterial Blood Glucose Ur Specific [place] Coronavirus (PCR) Positive A 03/09/21 03/09/21 03/09/21 15:19 17:48 18:10 WBC RBC Hgb Hct MCV MCHC RDW Plt Count Lymph % (Auto) Andrew % (Auto) Lymph # (Auto) Andrew # (Auto) Seg Neutrophils % Seg Neuts % (Manual) Lymphocytes % (Manual) Monocytes % (Manual) Nucleated RBC % Seg Neutrophils # Seg Neutrophils # Man Lymphocytes # (Manual) Monocytes # (Manual) PT INR APTT D-Dimer Heparin Anti-Xa Level ABG pH POC ABG pCO2 POC ABG pO2 ABG pO2 47.3 L ABG HCO3 26.3 H ABG O2 Saturation 83.7 L ABG Base Excess ABG Hemoglobin ABG Oxyhemoglobin ABG Sodium ABG Potassium ABG Glucose Oxyhemoglobin 82.1 L Sodium Potassium Chloride Carbon Dioxide BUN 29 H Creatinine Glucose 214 H POC Glucose 194 H Lactic Acid Calcium Phosphorus Magnesium Ferritin Lactate Dehydrogenase C-Reactive Protein NT-Pro-B Natriuret Pep Total Protein Albumin 3.4 L Triglycerides Arterial Blood Glucose Ur Specific [place] Coronavirus (PCR) 03/09/21 03/10/21 03/10/21 20:40 04:29 04:29 WBC 20.6 H RBC 5.07 H Hgb Hct 46.2 H MCV MCHC RDW Plt Count Lymph % (Auto) Andrew % (Auto) Lymph # (Auto) Andrew # (Auto) Seg Neutrophils % Seg Neuts % (Manual) 94.0 H Lymphocytes % (Manual) 1.0 L Monocytes % (Manual) Nucleated RBC % 3.0 H Seg Neutrophils # Seg Neutrophils # Man 19.4 H Lymphocytes # (Manual) 0.2 L Monocytes # (Manual) 1.0 H PT INR APTT D-Dimer Heparin Anti-Xa Level ABG pH POC ABG pCO2 POC ABG pO2 ABG pO2 ABG HCO3 ABG O2 Saturation ABG Base Excess ABG Hemoglobin ABG Oxyhemoglobin ABG Sodium ABG Potassium ABG Glucose Oxyhemoglobin Sodium Potassium Chloride Carbon Dioxide BUN 29 H Creatinine Glucose 188 H POC Glucose 176 H Lactic Acid Calcium Phosphorus Magnesium Ferritin Lactate Dehydrogenase C-Reactive Protein NT-Pro-B Natriuret Pep Total Protein Albumin 3.3 L Triglycerides Arterial Blood Glucose Ur Specific [place] Coronavirus (PCR) 03/10/21 03/10/21 03/10/21 05:22 10:27 15:25 WBC RBC Hgb Hct MCV MCHC RDW Plt Count Lymph % (Auto) Andrew % (Auto) Lymph # (Auto) Andrew # (Auto) Seg Neutrophils % Seg Neuts % (Manual) Lymphocytes % (Manual) Monocytes % (Manual) Nucleated RBC % Seg Neutrophils # Seg Neutrophils # Man Lymphocytes # (Manual) Monocytes # (Manual) PT INR APTT D-Dimer Heparin Anti-Xa Level ABG pH 7.488 H 7.488 H POC ABG pCO2 POC ABG pO2 ABG pO2 47.7 L 50.5 L ABG HCO3 ABG O2 Saturation 86.2 L 87.9 L ABG Base Excess ABG Hemoglobin ABG Oxyhemoglobin ABG Sodium ABG Potassium ABG Glucose Oxyhemoglobin 84.6 L 86.2 L Sodium Potassium Chloride Carbon Dioxide BUN Creatinine Glucose POC Glucose 155 H Lactic Acid Calcium Phosphorus Magnesium Ferritin Lactate Dehydrogenase C-Reactive Protein NT-Pro-B Natriuret Pep Total Protein Albumin Triglycerides Arterial Blood Glucose Ur Specific [place] Coronavirus (PCR) 03/10/21 03/10/21 03/11/21 18:10 18:55 00:07 WBC RBC Hgb Hct MCV MCHC RDW Plt Count Lymph % (Auto) Andrew % (Auto) Lymph # (Auto) Andrew # (Auto) Seg Neutrophils % Seg Neuts % (Manual) Lymphocytes % (Manual) Monocytes % (Manual) Nucleated RBC % Seg Neutrophils # Seg Neutrophils # Man Lymphocytes # (Manual) Monocytes # (Manual) PT INR APTT D-Dimer Heparin Anti-Xa Level ABG pH 7.343 L POC ABG pCO2 POC ABG pO2 ABG pO2 60.4 L ABG HCO3 27.9 H ABG O2 Saturation 88.7 L ABG Base Excess ABG Hemoglobin ABG Oxyhemoglobin ABG Sodium ABG Potassium ABG Glucose Oxyhemoglobin 86.9 L Sodium Potassium Chloride Carbon Dioxide BUN Creatinine Glucose POC Glucose 187 H 139 H Lactic Acid Calcium Phosphorus Magnesium Ferritin Lactate Dehydrogenase C-Reactive Protein NT-Pro-B Natriuret Pep Total Protein Albumin Triglycerides Arterial Blood Glucose Ur Specific [place] Coronavirus (PCR) 03/11/21 03/11/21 03/11/21 02:09 04:28 08:06 WBC RBC Hgb Hct MCV MCHC RDW Plt Count Lymph % (Auto) Andrew % (Auto) Lymph # (Auto) Andrew # (Auto) Seg Neutrophils % Seg Neuts % (Manual) Lymphocytes % (Manual) Monocytes % (Manual) Nucleated RBC % Seg Neutrophils # Seg Neutrophils # Man Lymphocytes # (Manual) Monocytes # (Manual) PT INR APTT D-Dimer Heparin Anti-Xa Level ABG pH 7.277 L POC ABG pCO2 55.9 H POC ABG pO2 54.4 L ABG pO2 ABG HCO3 ABG O2 Saturation ABG Base Excess ABG Hemoglobin ABG Oxyhemoglobin 83.0 L ABG Sodium ABG Potassium 4.8 H ABG Glucose 180 H Oxyhemoglobin Sodium Potassium Chloride Carbon Dioxide BUN 38 H Creatinine Glucose 249 H POC Glucose 278 H Lactic Acid Calcium Phosphorus Magnesium Ferritin Lactate Dehydrogenase C-Reactive Protein NT-Pro-B Natriuret Pep Total Protein Albumin 3.2 L Triglycerides Arterial Blood Glucose 180 H Ur Specific [place] Coronavirus (PCR) 03/11/21 03/11/21 03/11/21 11:29 15:06 15:48 WBC RBC Hgb Hct MCV MCHC RDW Plt Count Lymph % (Auto) Andrew % (Auto) Lymph # (Auto) Andrew # (Auto) Seg Neutrophils % Seg Neuts % (Manual) Lymphocytes % (Manual) Monocytes % (Manual) Nucleated RBC % Seg Neutrophils # Seg Neutrophils # Man Lymphocytes # (Manual) Monocytes # (Manual) PT INR APTT D-Dimer Heparin Anti-Xa Level ABG pH 7.260 L POC ABG pCO2 POC ABG pO2 ABG pO2 53.5 L ABG HCO3 29.5 H ABG O2 Saturation 84.0 L ABG Base Excess ABG Hemoglobin ABG Oxyhemoglobin ABG Sodium ABG Potassium ABG Glucose Oxyhemoglobin 82.3 L Sodium Potassium Chloride Carbon Dioxide BUN Creatinine Glucose POC Glucose 288 H 295 H Lactic Acid Calcium Phosphorus Magnesium Ferritin Lactate Dehydrogenase C-Reactive Protein NT-Pro-B Natriuret Pep Total Protein Albumin Triglycerides Arterial Blood Glucose Ur Specific [place] Coronavirus (PCR) 03/12/21 03/12/21 03/12/21 00:01 05:24 08:03 WBC RBC Hgb Hct MCV MCHC RDW Plt Count Lymph % (Auto) Andrew % (Auto) Lymph # (Auto) Andrew # (Auto) Seg Neutrophils % Seg Neuts % (Manual) Lymphocytes % (Manual) Monocytes % (Manual) Nucleated RBC % Seg Neutrophils # Seg Neutrophils # Man Lymphocytes # (Manual) Monocytes # (Manual) PT INR APTT D-Dimer Heparin Anti-Xa Level ABG pH POC ABG pCO2 POC ABG pO2 ABG pO2 ABG HCO3 ABG O2 Saturation ABG Base Excess ABG Hemoglobin ABG Oxyhemoglobin ABG Sodium ABG Potassium ABG Glucose Oxyhemoglobin Sodium 135 L Potassium Chloride Carbon Dioxide BUN 48 H Creatinine Glucose 358 H POC Glucose 304 H 310 H Lactic Acid Calcium Phosphorus Magnesium Ferritin Lactate Dehydrogenase C-Reactive Protein NT-Pro-B Natriuret Pep Total Protein 6.0 L Albumin 2.9 L Triglycerides Arterial Blood Glucose Ur Specific [place] Coronavirus (PCR) 03/12/21 03/12/21 03/12/21 08:03 10:43 11:31 WBC 14.6 H RBC Hgb Hct MCV MCHC RDW Plt Count Lymph % (Auto) Andrew % (Auto) Lymph # (Auto) Andrew # (Auto) Seg Neutrophils % Seg Neuts % (Manual) Lymphocytes % (Manual) Monocytes % (Manual) Nucleated RBC % Seg Neutrophils # Seg Neutrophils # Man Lymphocytes # (Manual) Monocytes # (Manual) PT INR APTT D-Dimer Heparin Anti-Xa Level ABG pH 7.248 L POC ABG pCO2 POC ABG pO2 ABG pO2 73.7 L ABG HCO3 32.0 H ABG O2 Saturation 93.9 L ABG Base Excess ABG Hemoglobin ABG Oxyhemoglobin ABG Sodium ABG Potassium ABG Glucose Oxyhemoglobin 92.1 L Sodium Potassium Chloride Carbon Dioxide BUN Creatinine Glucose POC Glucose 359 H Lactic Acid Calcium Phosphorus Magnesium Ferritin Lactate Dehydrogenase C-Reactive Protein NT-Pro-B Natriuret Pep Total Protein Albumin Triglycerides Arterial Blood Glucose Ur Specific [place] Coronavirus (PCR) 03/12/21 03/12/21 03/13/21 17:20 21:54 00:02 WBC RBC Hgb Hct MCV MCHC RDW Plt Count Lymph % (Auto) Andrew % (Auto) Lymph # (Auto) Andrew # (Auto) Seg Neutrophils % Seg Neuts % (Manual) Lymphocytes % (Manual) Monocytes % (Manual) Nucleated RBC % Seg Neutrophils # Seg Neutrophils # Man Lymphocytes # (Manual) Monocytes # (Manual) PT INR APTT D-Dimer Heparin Anti-Xa Level ABG pH 7.238 L POC ABG pCO2 71.9 H POC ABG pO2 53.6 L ABG pO2 ABG HCO3 ABG O2 Saturation ABG Base Excess ABG Hemoglobin ABG Oxyhemoglobin 84.8 L ABG Sodium 134.2 L ABG Potassium 4.9 H ABG Glucose 306 H Oxyhemoglobin Sodium Potassium Chloride Carbon Dioxide BUN Creatinine Glucose POC Glucose 374 H 308 H Lactic Acid Calcium Phosphorus Magnesium Ferritin Lactate Dehydrogenase C-Reactive Protein NT-Pro-B Natriuret Pep Total Protein Albumin Triglycerides Arterial Blood Glucose 306 H Ur Specific [place] Coronavirus (PCR) 03/13/21 03/13/21 03/13/21 05:22 05:44 05:44 WBC 13.9 H RBC Hgb Hct MCV MCHC RDW Plt Count Lymph % (Auto) Andrew % (Auto) Lymph # (Auto) Andrew # (Auto) Seg Neutrophils % Seg Neuts % (Manual) Lymphocytes % (Manual) Monocytes % (Manual) Nucleated RBC % Seg Neutrophils # Seg Neutrophils # Man Lymphocytes # (Manual) Monocytes # (Manual) PT INR APTT D-Dimer 3567.97 H Heparin Anti-Xa Level ABG pH POC ABG pCO2 POC ABG pO2 ABG pO2 ABG HCO3 ABG O2 Saturation ABG Base Excess ABG Hemoglobin ABG Oxyhemoglobin ABG Sodium ABG Potassium ABG Glucose Oxyhemoglobin Sodium Potassium Chloride Carbon Dioxide BUN Creatinine Glucose POC Glucose 316 H Lactic Acid Calcium Phosphorus Magnesium Ferritin Lactate Dehydrogenase C-Reactive Protein NT-Pro-B Natriuret Pep Total Protein Albumin Triglycerides Arterial Blood Glucose Ur Specific [place] Coronavirus (PCR) 03/13/21 03/13/21 03/13/21 05:44 05:44 11:15 WBC RBC Hgb Hct MCV MCHC RDW Plt Count Lymph % (Auto) Andrew % (Auto) Lymph # (Auto) Andrew # (Auto) Seg Neutrophils % Seg Neuts % (Manual) Lymphocytes % (Manual) Monocytes % (Manual) Nucleated RBC % Seg Neutrophils # Seg Neutrophils # Man Lymphocytes # (Manual) Monocytes # (Manual) PT INR APTT D-Dimer Heparin Anti-Xa Level ABG pH 7.310 L POC ABG pCO2 POC ABG pO2 ABG pO2 52.3 L ABG HCO3 34.1 H ABG O2 Saturation 86.8 L ABG Base Excess 5.5 H ABG Hemoglobin 13.8 L ABG Oxyhemoglobin ABG Sodium ABG Potassium ABG Glucose Oxyhemoglobin 85.1 L Sodium Potassium Chloride Carbon Dioxide BUN Creatinine Glucose POC Glucose Lactic Acid Calcium Phosphorus Magnesium Ferritin 858.7 H Lactate Dehydrogenase 348 H C-Reactive Protein 2.80 H NT-Pro-B Natriuret Pep Total Protein Albumin Triglycerides Arterial Blood Glucose Ur Specific [place] Coronavirus (PCR) 03/13/21 03/13/21 03/13/21 11:21 15:47 19:23 WBC RBC Hgb Hct MCV MCHC RDW Plt Count Lymph % (Auto) Andrew % (Auto) Lymph # (Auto) Andrew # (Auto) Seg Neutrophils % Seg Neuts % (Manual) Lymphocytes % (Manual) Monocytes % (Manual) Nucleated RBC % Seg Neutrophils # Seg Neutrophils # Man Lymphocytes # (Manual) Monocytes # (Manual) PT INR APTT D-Dimer Heparin Anti-Xa Level ABG pH POC ABG pCO2 POC ABG pO2 ABG pO2 ABG HCO3 ABG O2 Saturation ABG Base Excess ABG Hemoglobin ABG Oxyhemoglobin ABG Sodium ABG Potassium ABG Glucose Oxyhemoglobin Sodium 136 L Potassium 5.9 H Chloride Carbon Dioxide BUN 50 H Creatinine Glucose 397 H POC Glucose 322 H 317 H Lactic Acid Calcium Phosphorus Magnesium Ferritin Lactate Dehydrogenase C-Reactive Protein NT-Pro-B Natriuret Pep Total Protein Albumin Triglycerides Arterial Blood Glucose Ur Specific [place] Coronavirus (PCR) 03/13/21 03/14/21 03/14/21 23:46 05:32 05:50 WBC 11.6 H RBC Hgb Hct MCV MCHC RDW Plt Count Lymph % (Auto) Andrew % (Auto) Lymph # (Auto) Andrew # (Auto) Seg Neutrophils % Seg Neuts % (Manual) Lymphocytes % (Manual) Monocytes % (Manual) Nucleated RBC % Seg Neutrophils # Seg Neutrophils # Man Lymphocytes # (Manual) Monocytes # (Manual) PT INR APTT D-Dimer Heparin Anti-Xa Level ABG pH POC ABG pCO2 POC ABG pO2 ABG pO2 ABG HCO3 ABG O2 Saturation ABG Base Excess ABG Hemoglobin ABG Oxyhemoglobin ABG Sodium ABG Potassium ABG Glucose Oxyhemoglobin Sodium Potassium Chloride Carbon Dioxide BUN Creatinine Glucose POC Glucose 332 H 316 H Lactic Acid Calcium Phosphorus Magnesium Ferritin Lactate Dehydrogenase C-Reactive Protein NT-Pro-B Natriuret Pep Total Protein Albumin Triglycerides Arterial Blood Glucose Ur Specific [place] Coronavirus (PCR) 03/14/21 03/14/21 03/14/21 05:50 11:33 16:53 WBC RBC Hgb Hct MCV MCHC RDW Plt Count Lymph % (Auto) Andrew % (Auto) Lymph # (Auto) Andrew # (Auto) Seg Neutrophils % Seg Neuts % (Manual) Lymphocytes % (Manual) Monocytes % (Manual) Nucleated RBC % Seg Neutrophils # Seg Neutrophils # Man Lymphocytes # (Manual) Monocytes # (Manual) PT INR APTT D-Dimer Heparin Anti-Xa Level ABG pH POC ABG pCO2 POC ABG pO2 ABG pO2 ABG HCO3 ABG O2 Saturation ABG Base Excess ABG Hemoglobin ABG Oxyhemoglobin ABG Sodium ABG Potassium ABG Glucose Oxyhemoglobin Sodium Potassium 5.9 H Chloride Carbon Dioxide 31 H BUN 48 H Creatinine Glucose 380 H POC Glucose 315 H 235 H Lactic Acid Calcium Phosphorus Magnesium 3.40 H Ferritin Lactate Dehydrogenase C-Reactive Protein NT-Pro-B Natriuret Pep Total Protein Albumin Triglycerides Arterial Blood Glucose Ur Specific [place] Coronavirus (PCR) 03/14/21 03/14/21 03/15/21 18:34 23:27 01:22 WBC RBC Hgb Hct 46.3 H MCV MCHC RDW Plt Count Lymph % (Auto) Andrew % (Auto) Lymph # (Auto) Andrew # (Auto) Seg Neutrophils % Seg Neuts % (Manual) Lymphocytes % (Manual) Monocytes % (Manual) Nucleated RBC % Seg Neutrophils # Seg Neutrophils # Man Lymphocytes # (Manual) Monocytes # (Manual) PT INR APTT D-Dimer Heparin Anti-Xa Level ABG pH POC ABG pCO2 POC ABG pO2 ABG pO2 ABG HCO3 ABG O2 Saturation ABG Base Excess ABG Hemoglobin ABG Oxyhemoglobin ABG Sodium ABG Potassium ABG Glucose Oxyhemoglobin Sodium 146 H Potassium Chloride Carbon Dioxide 34 H BUN 49 H Creatinine Glucose 285 H POC Glucose 203 H Lactic Acid Calcium Phosphorus Magnesium Ferritin Lactate Dehydrogenase C-Reactive Protein NT-Pro-B Natriuret Pep Total Protein Albumin Triglycerides Arterial Blood Glucose Ur Specific [place] Coronavirus (PCR) 03/15/21 03/15/21 03/15/21 04:00 06:06 06:06 WBC RBC Hgb Hct MCV MCHC RDW Plt Count Lymph % (Auto) Andrew % (Auto) Lymph # (Auto) Andrew # (Auto) Seg Neutrophils % Seg Neuts % (Manual) Lymphocytes % (Manual) Monocytes % (Manual) Nucleated RBC % Seg Neutrophils # Seg Neutrophils # Man Lymphocytes # (Manual) Monocytes # (Manual) PT INR APTT D-Dimer 1781.79 H Heparin Anti-Xa Level ABG pH POC ABG pCO2 POC ABG pO2 ABG pO2 ABG HCO3 ABG O2 Saturation ABG Base Excess ABG Hemoglobin ABG Oxyhemoglobin ABG Sodium ABG Potassium ABG Glucose Oxyhemoglobin Sodium 148 H Potassium 5.7 H D Chloride 108.0 H Carbon Dioxide 31 H BUN 46 H Creatinine Glucose 139 H POC Glucose Lactic Acid Calcium Phosphorus 4.80 H D Magnesium 3.00 H Ferritin 976.4 H Lactate Dehydrogenase 630 H C-Reactive Protein NT-Pro-B Natriuret Pep Total Protein Albumin Triglycerides Arterial Blood Glucose Ur Specific [place] Coronavirus (PCR) 03/15/21 03/15/21 03/15/21 11:56 14:05 17:09 WBC RBC Hgb Hct MCV MCHC RDW Plt Count Lymph % (Auto) Andrew % (Auto) Lymph # (Auto) Andrew # (Auto) Seg Neutrophils % Seg Neuts % (Manual) Lymphocytes % (Manual) Monocytes % (Manual) Nucleated RBC % Seg Neutrophils # Seg Neutrophils # Man Lymphocytes # (Manual) Monocytes # (Manual) PT INR APTT D-Dimer Heparin Anti-Xa Level ABG pH POC ABG pCO2 POC ABG pO2 ABG pO2 52.1 L ABG HCO3 36.6 H ABG O2 Saturation 87.6 L ABG Base Excess 9.5 H ABG Hemoglobin ABG Oxyhemoglobin ABG Sodium ABG Potassium ABG Glucose Oxyhemoglobin 85.7 L Sodium Potassium Chloride Carbon Dioxide BUN Creatinine Glucose POC Glucose 219 H 263 H Lactic Acid Calcium Phosphorus Magnesium Ferritin Lactate Dehydrogenase C-Reactive Protein NT-Pro-B Natriuret Pep Total Protein Albumin Triglycerides Arterial Blood Glucose Ur Specific [place] Coronavirus (PCR) 03/16/21 03/16/21 03/16/21 00:32 04:11 04:11 WBC 11.9 H RBC Hgb Hct MCV MCHC 30 L RDW Plt Count Lymph % (Auto) Andrew % (Auto) Lymph # (Auto) Andrew # (Auto) Seg Neutrophils % Seg Neuts % (Manual) Lymphocytes % (Manual) Monocytes % (Manual) Nucleated RBC % Seg Neutrophils # Seg Neutrophils # Man Lymphocytes # (Manual) Monocytes # (Manual) PT INR APTT D-Dimer Heparin Anti-Xa Level ABG pH POC ABG pCO2 POC ABG pO2 ABG pO2 ABG HCO3 ABG O2 Saturation ABG Base Excess ABG Hemoglobin ABG Oxyhemoglobin ABG Sodium ABG Potassium ABG Glucose Oxyhemoglobin Sodium 151 H Potassium Chloride Carbon Dioxide 35 H BUN 48 H Creatinine Glucose 152 H POC Glucose 165 H Lactic Acid Calcium Phosphorus Magnesium Ferritin Lactate Dehydrogenase C-Reactive Protein NT-Pro-B Natriuret Pep Total Protein Albumin Triglycerides Arterial Blood Glucose Ur Specific [place] Coronavirus (PCR) 03/16/21 03/16/21 03/16/21 04:11 05:26 11:35 WBC RBC Hgb Hct MCV MCHC RDW Plt Count Lymph % (Auto) Andrew % (Auto) Lymph # (Auto) Andrew # (Auto) Seg Neutrophils % Seg Neuts % (Manual) Lymphocytes % (Manual) Monocytes % (Manual) Nucleated RBC % Seg Neutrophils # Seg Neutrophils # Man Lymphocytes # (Manual) Monocytes # (Manual) PT INR APTT D-Dimer Heparin Anti-Xa Level ABG pH POC ABG pCO2 POC ABG pO2 ABG pO2 ABG HCO3 ABG O2 Saturation ABG Base Excess ABG Hemoglobin ABG Oxyhemoglobin ABG Sodium ABG Potassium ABG Glucose Oxyhemoglobin Sodium Potassium Chloride Carbon Dioxide BUN Creatinine Glucose POC Glucose 162 H 187 H Lactic Acid Calcium Phosphorus Magnesium Ferritin Lactate Dehydrogenase C-Reactive Protein NT-Pro-B Natriuret Pep Total Protein Albumin Triglycerides 267 H Arterial Blood Glucose Ur Specific [place] Coronavirus (PCR) 03/16/21 03/16/21 03/16/21 17:29 22:25 23:22 WBC RBC Hgb Hct MCV MCHC RDW Plt Count Lymph % (Auto) Andrew % (Auto) Lymph # (Auto) Andrew # (Auto) Seg Neutrophils % Seg Neuts % (Manual) Lymphocytes % (Manual) Monocytes % (Manual) Nucleated RBC % Seg Neutrophils # Seg Neutrophils # Man Lymphocytes # (Manual) Monocytes # (Manual) PT INR APTT D-Dimer Heparin Anti-Xa Level ABG pH POC ABG pCO2 POC ABG pO2 ABG pO2 ABG HCO3 ABG O2 Saturation ABG Base Excess ABG Hemoglobin ABG Oxyhemoglobin ABG Sodium ABG Potassium ABG Glucose Oxyhemoglobin Sodium Potassium Chloride Carbon Dioxide BUN Creatinine Glucose POC Glucose 237 H 165 H 189 H Lactic Acid Calcium Phosphorus Magnesium Ferritin Lactate Dehydrogenase C-Reactive Protein NT-Pro-B Natriuret Pep Total Protein Albumin Triglycerides Arterial Blood Glucose Ur Specific [place] Coronavirus (PCR) 03/17/21 03/17/21 03/17/21 04:40 04:40 04:40 WBC 14.1 H RBC Hgb Hct MCV MCHC RDW 15.3 H Plt Count Lymph % (Auto) 12.6 L Andrew % (Auto) 11.3 H Lymph # (Auto) Andrew # (Auto) 1.6 H Seg Neutrophils % 74.9 H Seg Neuts % (Manual) Lymphocytes % (Manual) Monocytes % (Manual) Nucleated RBC % Seg Neutrophils # 10.5 H Seg Neutrophils # Man Lymphocytes # (Manual) Monocytes # (Manual) PT INR APTT D-Dimer 1359.12 H Heparin Anti-Xa Level ABG pH POC ABG pCO2 POC ABG pO2 ABG pO2 ABG HCO3 ABG O2 Saturation ABG Base Excess ABG Hemoglobin ABG Oxyhemoglobin ABG Sodium ABG Potassium ABG Glucose Oxyhemoglobin Sodium 148 H Potassium Chloride 107.5 H Carbon Dioxide 33 H BUN 42 H Creatinine Glucose 183 H POC Glucose Lactic Acid Calcium Phosphorus Magnesium 2.70 H Ferritin Lactate Dehydrogenase C-Reactive Protein NT-Pro-B Natriuret Pep Total Protein Albumin Triglycerides Arterial Blood Glucose Ur Specific [place] Coronavirus (PCR) 03/17/21 03/17/21 03/17/21 05:53 11:05 11:51 WBC RBC Hgb Hct MCV MCHC RDW Plt Count Lymph % (Auto) Andrew % (Auto) Lymph # (Auto) Andrew # (Auto) Seg Neutrophils % Seg Neuts % (Manual) Lymphocytes % (Manual) Monocytes % (Manual) Nucleated RBC % Seg Neutrophils # Seg Neutrophils # Man Lymphocytes # (Manual) Monocytes # (Manual) PT INR APTT D-Dimer Heparin Anti-Xa Level ABG pH POC ABG pCO2 POC ABG pO2 ABG pO2 ABG HCO3 35.7 H ABG O2 Saturation ABG Base Excess 8.7 H ABG Hemoglobin ABG Oxyhemoglobin ABG Sodium ABG Potassium ABG Glucose Oxyhemoglobin 94.2 L Sodium Potassium Chloride Carbon Dioxide BUN Creatinine Glucose POC Glucose 176 H 197 H Lactic Acid Calcium Phosphorus Magnesium Ferritin Lactate Dehydrogenase C-Reactive Protein NT-Pro-B Natriuret Pep Total Protein Albumin Triglycerides Arterial Blood Glucose Ur Specific [place] Coronavirus (PCR) 03/17/21 03/17/21 03/17/21 16:54 21:10 23:33 WBC RBC Hgb Hct MCV MCHC RDW Plt Count Lymph % (Auto) Andrew % (Auto) Lymph # (Auto) Andrew # (Auto) Seg Neutrophils % Seg Neuts % (Manual) Lymphocytes % (Manual) Monocytes % (Manual) Nucleated RBC % Seg Neutrophils # Seg Neutrophils # Man Lymphocytes # (Manual) Monocytes # (Manual) PT INR APTT D-Dimer Heparin Anti-Xa Level ABG pH POC ABG pCO2 POC ABG pO2 ABG pO2 ABG HCO3 ABG O2 Saturation ABG Base Excess ABG Hemoglobin ABG Oxyhemoglobin ABG Sodium ABG Potassium ABG Glucose Oxyhemoglobin Sodium Potassium Chloride Carbon Dioxide BUN Creatinine Glucose POC Glucose 135 H 160 H 138 H Lactic Acid Calcium Phosphorus Magnesium Ferritin Lactate Dehydrogenase C-Reactive Protein NT-Pro-B Natriuret Pep Total Protein Albumin Triglycerides Arterial Blood Glucose Ur Specific [place] Coronavirus (PCR) 03/18/21 03/18/21 03/18/21 04:18 04:50 05:43 WBC RBC Hgb Hct MCV MCHC RDW Plt Count Lymph % (Auto) Andrew % (Auto) Lymph # (Auto) Andrew # (Auto) Seg Neutrophils % Seg Neuts % (Manual) Lymphocytes % (Manual) Monocytes % (Manual) Nucleated RBC % Seg Neutrophils # Seg Neutrophils # Man Lymphocytes # (Manual) Monocytes # (Manual) PT INR APTT D-Dimer Heparin Anti-Xa Level ABG pH POC ABG pCO2 POC ABG pO2 ABG pO2 59.8 L ABG HCO3 36.5 H ABG O2 Saturation 90.7 L ABG Base Excess 9.4 H ABG Hemoglobin 12.0 L ABG Oxyhemoglobin ABG Sodium ABG Potassium ABG Glucose Oxyhemoglobin 88.9 L Sodium Potassium Chloride 107.2 H Carbon Dioxide 34 H BUN 38 H Creatinine 0.7 L Glucose 136 H POC Glucose 128 H Lactic Acid Calcium Phosphorus Magnesium Ferritin Lactate Dehydrogenase C-Reactive Protein NT-Pro-B Natriuret Pep Total Protein Albumin Triglycerides Arterial Blood Glucose Ur Specific [place] Coronavirus (PCR) 03/18/21 03/18/21 03/18/21 11:20 17:35 23:35 WBC RBC Hgb Hct MCV MCHC RDW Plt Count Lymph % (Auto) Andrew % (Auto) Lymph # (Auto) Andrew # (Auto) Seg Neutrophils % Seg Neuts % (Manual) Lymphocytes % (Manual) Monocytes % (Manual) Nucleated RBC % Seg Neutrophils # Seg Neutrophils # Man Lymphocytes # (Manual) Monocytes # (Manual) PT INR APTT D-Dimer Heparin Anti-Xa Level ABG pH POC ABG pCO2 POC ABG pO2 ABG pO2 70.7 L ABG HCO3 33.6 H ABG O2 Saturation ABG Base Excess 8.0 H ABG Hemoglobin ABG Oxyhemoglobin ABG Sodium ABG Potassium ABG Glucose Oxyhemoglobin 93.7 L Sodium Potassium Chloride Carbon Dioxide BUN Creatinine Glucose POC Glucose 189 H 144 H Lactic Acid Calcium Phosphorus Magnesium Ferritin Lactate Dehydrogenase C-Reactive Protein NT-Pro-B Natriuret Pep Total Protein Albumin Triglycerides Arterial Blood Glucose Ur Specific [place] Coronavirus (PCR) 03/19/21 03/19/21 03/19/21 02:35 04:20 04:20 WBC 14.0 H RBC Hgb Hct MCV MCHC RDW Plt Count Lymph % (Auto) Andrew % (Auto) Lymph # (Auto) Andrew # (Auto) Seg Neutrophils % Seg Neuts % (Manual) Lymphocytes % (Manual) Monocytes % (Manual) Nucleated RBC % Seg Neutrophils # Seg Neutrophils # Man Lymphocytes # (Manual) Monocytes # (Manual) PT INR APTT D-Dimer Heparin Anti-Xa Level ABG pH POC ABG pCO2 POC ABG pO2 ABG pO2 ABG HCO3 32.0 H ABG O2 Saturation ABG Base Excess 5.2 H ABG Hemoglobin 13.6 L ABG Oxyhemoglobin ABG Sodium ABG Potassium ABG Glucose Oxyhemoglobin 94.6 L Sodium 146 H Potassium Chloride 109.3 H Carbon Dioxide BUN 36 H Creatinine Glucose 203 H POC Glucose Lactic Acid Calcium Phosphorus Magnesium Ferritin Lactate Dehydrogenase C-Reactive Protein NT-Pro-B Natriuret Pep Total Protein Albumin Triglycerides 254 H Arterial Blood Glucose Ur Specific [place] Coronavirus (PCR) 03/19/21 03/19/21 03/19/21 05:45 11:36 23:51 WBC RBC Hgb Hct MCV MCHC RDW Plt Count Lymph % (Auto) Andrew % (Auto) Lymph # (Auto) Andrew # (Auto) Seg Neutrophils % Seg Neuts % (Manual) Lymphocytes % (Manual) Monocytes % (Manual) Nucleated RBC % Seg Neutrophils # Seg Neutrophils # Man Lymphocytes # (Manual) Monocytes # (Manual) PT INR APTT D-Dimer Heparin Anti-Xa Level ABG pH POC ABG pCO2 POC ABG pO2 ABG pO2 ABG HCO3 ABG O2 Saturation ABG Base Excess ABG Hemoglobin ABG Oxyhemoglobin ABG Sodium ABG Potassium ABG Glucose Oxyhemoglobin Sodium Potassium Chloride Carbon Dioxide BUN Creatinine Glucose POC Glucose 164 H 172 H 140 H Lactic Acid Calcium Phosphorus Magnesium Ferritin Lactate Dehydrogenase C-Reactive Protein NT-Pro-B Natriuret Pep Total Protein Albumin Triglycerides Arterial Blood Glucose Ur Specific [place] Coronavirus (PCR) 03/20/21 03/20/21 03/20/21 03:29 04:45 04:45 WBC RBC Hgb Hct MCV 95 H MCHC RDW 15.7 H Plt Count Lymph % (Auto) Andrew % (Auto) Lymph # (Auto) Andrew # (Auto) Seg Neutrophils % Seg Neuts % (Manual) Lymphocytes % (Manual) Monocytes % (Manual) Nucleated RBC % Seg Neutrophils # Seg Neutrophils # Man Lymphocytes # (Manual) Monocytes # (Manual) PT INR APTT D-Dimer Heparin Anti-Xa Level ABG pH 7.349 L POC ABG pCO2 POC ABG pO2 ABG pO2 ABG HCO3 33.7 H ABG O2 Saturation ABG Base Excess 6.4 H ABG Hemoglobin 11.8 L ABG Oxyhemoglobin ABG Sodium ABG Potassium ABG Glucose Oxyhemoglobin 93.9 L Sodium 146 H Potassium 5.5 H Chloride 111.1 H Carbon Dioxide BUN 34 H Creatinine 0.7 L Glucose 145 H POC Glucose Lactic Acid Calcium Phosphorus Magnesium 2.50 H Ferritin Lactate Dehydrogenase C-Reactive Protein NT-Pro-B Natriuret Pep Total Protein Albumin Triglycerides Arterial Blood Glucose Ur Specific [place] Coronavirus (PCR) 03/20/21 03/20/21 03/20/21 05:41 09:08 11:54 WBC RBC Hgb Hct MCV MCHC RDW Plt Count Lymph % (Auto) Andrew % (Auto) Lymph # (Auto) Andrew # (Auto) Seg Neutrophils % Seg Neuts % (Manual) Lymphocytes % (Manual) Monocytes % (Manual) Nucleated RBC % Seg Neutrophils # Seg Neutrophils # Man Lymphocytes # (Manual) Monocytes # (Manual) PT INR APTT D-Dimer Heparin Anti-Xa Level ABG pH POC ABG pCO2 POC ABG pO2 ABG pO2 ABG HCO3 ABG O2 Saturation ABG Base Excess ABG Hemoglobin ABG Oxyhemoglobin ABG Sodium ABG Potassium ABG Glucose Oxyhemoglobin Sodium Potassium Chloride Carbon Dioxide BUN Creatinine Glucose POC Glucose 108 H 132 H 162 H Lactic Acid Calcium Phosphorus Magnesium Ferritin Lactate Dehydrogenase C-Reactive Protein NT-Pro-B Natriuret Pep Total Protein Albumin Triglycerides Arterial Blood Glucose Ur Specific [place] Coronavirus (PCR) 03/20/21 03/21/21 03/21/21 17:28 00:31 04:44 WBC RBC Hgb Hct MCV MCHC RDW Plt Count Lymph % (Auto) Andrew % (Auto) Lymph # (Auto) Andrew # (Auto) Seg Neutrophils % Seg Neuts % (Manual) Lymphocytes % (Manual) Monocytes % (Manual) Nucleated RBC % Seg Neutrophils # Seg Neutrophils # Man Lymphocytes # (Manual) Monocytes # (Manual) PT INR APTT D-Dimer Heparin Anti-Xa Level ABG pH POC ABG pCO2 POC ABG pO2 ABG pO2 ABG HCO3 ABG O2 Saturation ABG Base Excess ABG Hemoglobin ABG Oxyhemoglobin ABG Sodium ABG Potassium ABG Glucose Oxyhemoglobin Sodium Potassium Chloride 108.3 H Carbon Dioxide BUN 30 H Creatinine 0.7 L Glucose POC Glucose 160 H 122 H Lactic Acid Calcium Phosphorus Magnesium Ferritin Lactate Dehydrogenase C-Reactive Protein NT-Pro-B Natriuret Pep Total Protein Albumin Triglycerides Arterial Blood Glucose Ur Specific [place] Coronavirus (PCR) 03/21/21 03/21/21 03/21/21 09:18 10:09 13:20 WBC RBC Hgb Hct MCV MCHC RDW Plt Count Lymph % (Auto) Andrew % (Auto) Lymph # (Auto) Andrew # (Auto) Seg Neutrophils % Seg Neuts % (Manual) Lymphocytes % (Manual) Monocytes % (Manual) Nucleated RBC % Seg Neutrophils # Seg Neutrophils # Man Lymphocytes # (Manual) Monocytes # (Manual) PT INR APTT D-Dimer Heparin Anti-Xa Level ABG pH POC ABG pCO2 POC ABG pO2 ABG pO2 60.7 L ABG HCO3 30.6 H ABG O2 Saturation 93.6 L ABG Base Excess 5.3 H ABG Hemoglobin ABG Oxyhemoglobin ABG Sodium ABG Potassium ABG Glucose Oxyhemoglobin 91.7 L Sodium Potassium Chloride Carbon Dioxide BUN Creatinine Glucose POC Glucose 169 H 122 H Lactic Acid Calcium Phosphorus Magnesium Ferritin Lactate Dehydrogenase C-Reactive Protein NT-Pro-B Natriuret Pep Total Protein Albumin Triglycerides Arterial Blood Glucose Ur Specific [place] Coronavirus (PCR) 03/21/21 03/21/21 03/21/21 17:25 22:41 23:52 WBC RBC Hgb Hct MCV MCHC RDW Plt Count Lymph % (Auto) Andrew % (Auto) Lymph # (Auto) Andrew # (Auto) Seg Neutrophils % Seg Neuts % (Manual) Lymphocytes % (Manual) Monocytes % (Manual) Nucleated RBC % Seg Neutrophils # Seg Neutrophils # Man Lymphocytes # (Manual) Monocytes # (Manual) PT INR APTT D-Dimer Heparin Anti-Xa Level ABG pH POC ABG pCO2 POC ABG pO2 ABG pO2 ABG HCO3 ABG O2 Saturation ABG Base Excess ABG Hemoglobin ABG Oxyhemoglobin ABG Sodium ABG Potassium ABG Glucose Oxyhemoglobin Sodium Potassium Chloride Carbon Dioxide BUN Creatinine Glucose POC Glucose 121 H 139 H 140 H Lactic Acid Calcium Phosphorus Magnesium Ferritin Lactate Dehydrogenase C-Reactive Protein NT-Pro-B Natriuret Pep Total Protein Albumin Triglycerides Arterial Blood Glucose Ur Specific [place] Coronavirus (PCR) 03/22/21 03/22/21 03/22/21 05:58 07:26 07:26 WBC RBC Hgb Hct MCV MCHC 31 L RDW 16.1 H Plt Count Lymph % (Auto) Andrew % (Auto) Lymph # (Auto) Andrew # (Auto) Seg Neutrophils % Seg Neuts % (Manual) Lymphocytes % (Manual) Monocytes % (Manual) Nucleated RBC % Seg Neutrophils # Seg Neutrophils # Man Lymphocytes # (Manual) Monocytes # (Manual) PT INR APTT D-Dimer Heparin Anti-Xa Level ABG pH POC ABG pCO2 POC ABG pO2 ABG pO2 ABG HCO3 ABG O2 Saturation ABG Base Excess ABG Hemoglobin ABG Oxyhemoglobin ABG Sodium ABG Potassium ABG Glucose Oxyhemoglobin Sodium Potassium Chloride 108.5 H Carbon Dioxide BUN 44 H Creatinine Glucose 120 H POC Glucose 131 H Lactic Acid Calcium Phosphorus 5.80 H Magnesium 2.80 H Ferritin Lactate Dehydrogenase C-Reactive Protein NT-Pro-B Natriuret Pep Total Protein Albumin Triglycerides 305 H Arterial Blood Glucose Ur Specific [place] Coronavirus (PCR) 03/22/21 03/22/21 03/22/21 09:38 11:15 16:01 WBC RBC Hgb Hct MCV MCHC RDW Plt Count Lymph % (Auto) [place] % (Auto) Lymph # (Auto) Andrew # (Auto) Seg Neutrophils % Seg Neuts % (Manual) Lymphocytes % (Manual) Monocytes % (Manual) Nucleated RBC % Seg Neutrophils # Seg Neutrophils # Man Lymphocytes # (Manual) Monocytes # (Manual) PT INR APTT D-Dimer Heparin Anti-Xa Level ABG pH POC ABG pCO2 POC ABG pO2 ABG pO2 70.0 L ABG HCO3 30.0 H ABG O2 Saturation 94.6 L ABG Base Excess 3.6 H ABG Hemoglobin 13.5 L ABG Oxyhemoglobin ABG Sodium ABG Potassium ABG Glucose Oxyhemoglobin 92.5 L Sodium Potassium Chloride Carbon Dioxide BUN Creatinine Glucose POC Glucose 186 H 148 H Lactic Acid Calcium Phosphorus Magnesium Ferritin Lactate Dehydrogenase C-Reactive Protein NT-Pro-B Natriuret Pep Total Protein Albumin Triglycerides Arterial Blood Glucose Ur Specific [place] Coronavirus (PCR) 03/22/21 03/22/21 03/23/21 21:13 23:48 07:04 WBC 11.7 H RBC Hgb Hct MCV 95 H MCHC RDW 16.1 H Plt Count Lymph % (Auto) Andrew % (Auto) Lymph # (Auto) Andrew # (Auto) Seg Neutrophils % Seg Neuts % (Manual) Lymphocytes % (Manual) Monocytes % (Manual) Nucleated RBC % Seg Neutrophils # Seg Neutrophils # Man Lymphocytes # (Manual) Monocytes # (Manual) PT INR APTT D-Dimer Heparin Anti-Xa Level ABG pH POC ABG pCO2 POC ABG pO2 ABG pO2 ABG HCO3 ABG O2 Saturation ABG Base Excess ABG Hemoglobin ABG Oxyhemoglobin ABG Sodium ABG Potassium ABG Glucose Oxyhemoglobin Sodium Potassium Chloride Carbon Dioxide BUN Creatinine Glucose POC Glucose 121 H 114 H Lactic Acid Calcium Phosphorus Magnesium Ferritin Lactate Dehydrogenase C-Reactive Protein NT-Pro-B Natriuret Pep Total Protein Albumin Triglycerides Arterial Blood Glucose Ur Specific [place] Coronavirus (PCR) 03/23/21 03/23/21 03/23/21 07:04 08:35 11:19 WBC RBC Hgb Hct MCV MCHC RDW Plt Count Lymph % (Auto) [place] % (Auto) Lymph # (Auto) Andrew # (Auto) Seg Neutrophils % Seg Neuts % (Manual) Lymphocytes % (Manual) Monocytes % (Manual) Nucleated RBC % Seg Neutrophils # Seg Neutrophils # Man Lymphocytes # (Manual) Monocytes # (Manual) PT INR APTT D-Dimer Heparin Anti-Xa Level ABG pH 7.345 L POC ABG pCO2 POC ABG pO2 ABG pO2 167.9 H ABG HCO3 32.2 H ABG O2 Saturation ABG Base Excess 4.8 H ABG Hemoglobin 13.4 L ABG Oxyhemoglobin ABG Sodium ABG Potassium ABG Glucose Oxyhemoglobin Sodium 148 H Potassium Chloride 111.3 H Carbon Dioxide 31 H BUN 31 H Creatinine Glucose 131 H POC Glucose 165 H Lactic Acid Calcium Phosphorus Magnesium 2.50 H Ferritin Lactate Dehydrogenase C-Reactive Protein NT-Pro-B Natriuret Pep Total Protein Albumin Triglycerides Arterial Blood Glucose Ur Specific [place] Coronavirus (PCR) 03/23/21 03/23/21 03/24/21 16:48 20:52 00:07 WBC RBC Hgb Hct MCV MCHC RDW Plt Count Lymph % (Auto) Andrew % (Auto) Lymph # (Auto) Andrew # (Auto) Seg Neutrophils % Seg Neuts % (Manual) Lymphocytes % (Manual) Monocytes % (Manual) Nucleated RBC % Seg Neutrophils # Seg Neutrophils # Man Lymphocytes # (Manual) Monocytes # (Manual) PT INR APTT D-Dimer Heparin Anti-Xa Level ABG pH POC ABG pCO2 POC ABG pO2 ABG pO2 ABG HCO3 ABG O2 Saturation ABG Base Excess ABG Hemoglobin ABG Oxyhemoglobin ABG Sodium ABG Potassium ABG Glucose Oxyhemoglobin Sodium Potassium Chloride Carbon Dioxide BUN Creatinine Glucose POC Glucose 160 H 127 H 147 H Lactic Acid Calcium Phosphorus Magnesium Ferritin Lactate Dehydrogenase C-Reactive Protein NT-Pro-B Natriuret Pep Total Protein Albumin Triglycerides Arterial Blood Glucose Ur Specific [place] Coronavirus (PCR) 03/24/21 03/24/21 03/24/21 04:34 04:34 05:20 WBC 13.3 H RBC Hgb Hct MCV MCHC 31 L RDW 16.1 H Plt Count Lymph % (Auto) Andrew % (Auto) Lymph # (Auto) Andrew # (Auto) Seg Neutrophils % Seg Neuts % (Manual) Lymphocytes % (Manual) Monocytes % (Manual) Nucleated RBC % Seg Neutrophils # Seg Neutrophils # Man Lymphocytes # (Manual) Monocytes # (Manual) PT INR APTT D-Dimer Heparin Anti-Xa Level ABG pH POC ABG pCO2 POC ABG pO2 ABG pO2 ABG HCO3 ABG O2 Saturation ABG Base Excess ABG Hemoglobin ABG Oxyhemoglobin ABG Sodium ABG Potassium ABG Glucose Oxyhemoglobin Sodium Potassium 5.2 H Chloride Carbon Dioxide BUN 28 H Creatinine 0.7 L Glucose 152 H POC Glucose 141 H Lactic Acid Calcium Phosphorus Magnesium Ferritin Lactate Dehydrogenase C-Reactive Protein NT-Pro-B Natriuret Pep Total Protein Albumin Triglycerides Arterial Blood Glucose Ur Specific [place] Coronavirus (PCR) 03/24/21 03/24/21 03/24/21 09:40 11:38 16:45 WBC RBC Hgb Hct MCV MCHC RDW Plt Count Lymph % (Auto) [place] % (Auto) Lymph # (Auto) Andrew # (Auto) Seg Neutrophils % Seg Neuts % (Manual) Lymphocytes % (Manual) Monocytes % (Manual) Nucleated RBC % Seg Neutrophils # Seg Neutrophils # Man Lymphocytes # (Manual) Monocytes # (Manual) PT INR APTT D-Dimer Heparin Anti-Xa Level ABG pH POC ABG pCO2 POC ABG pO2 ABG pO2 ABG HCO3 ABG O2 Saturation ABG Base Excess ABG Hemoglobin ABG Oxyhemoglobin ABG Sodium ABG Potassium ABG Glucose Oxyhemoglobin Sodium Potassium Chloride Carbon Dioxide BUN Creatinine Glucose POC Glucose 126 H 136 H 118 H Lactic Acid Calcium Phosphorus Magnesium Ferritin Lactate Dehydrogenase C-Reactive Protein NT-Pro-B Natriuret Pep Total Protein Albumin Triglycerides Arterial Blood Glucose Ur Specific [place] Coronavirus (PCR) 03/24/21 03/24/21 03/25/21 21:03 23:49 04:32 WBC RBC Hgb Hct MCV MCHC RDW 16.1 H Plt Count 121 L Lymph % (Auto) Andrew % (Auto) Lymph # (Auto) Andrew # (Auto) Seg Neutrophils % Seg Neuts % (Manual) Lymphocytes % (Manual) Monocytes % (Manual) Nucleated RBC % Seg Neutrophils # Seg Neutrophils # Man Lymphocytes # (Manual) Monocytes # (Manual) PT INR APTT D-Dimer Heparin Anti-Xa Level ABG pH POC ABG pCO2 POC ABG pO2 ABG pO2 ABG HCO3 ABG O2 Saturation ABG Base Excess ABG Hemoglobin ABG Oxyhemoglobin ABG Sodium ABG Potassium ABG Glucose Oxyhemoglobin Sodium Potassium Chloride Carbon Dioxide BUN Creatinine Glucose POC Glucose 116 H 125 H Lactic Acid Calcium Phosphorus Magnesium Ferritin Lactate Dehydrogenase C-Reactive Protein NT-Pro-B Natriuret Pep Total Protein Albumin Triglycerides Arterial Blood Glucose Ur Specific [place] Coronavirus (PCR) 03/25/21 03/25/21 03/25/21 04:32 05:21 09:29 WBC RBC Hgb Hct MCV MCHC RDW Plt Count Lymph % (Auto) Andrew % (Auto) Lymph # (Auto) Andrew # (Auto) Seg Neutrophils % Seg Neuts % (Manual) Lymphocytes % (Manual) Monocytes % (Manual) Nucleated RBC % Seg Neutrophils # Seg Neutrophils # Man Lymphocytes # (Manual) Monocytes # (Manual) PT INR APTT D-Dimer Heparin Anti-Xa Level ABG pH POC ABG pCO2 POC ABG pO2 ABG pO2 ABG HCO3 ABG O2 Saturation ABG Base Excess ABG Hemoglobin ABG Oxyhemoglobin ABG Sodium ABG Potassium ABG Glucose Oxyhemoglobin Sodium 135 L D Potassium Chloride Carbon Dioxide BUN 25 H Creatinine 0.7 L Glucose 168 H POC Glucose 149 H 115 H Lactic Acid Calcium Phosphorus Magnesium Ferritin Lactate Dehydrogenase C-Reactive Protein NT-Pro-B Natriuret Pep Total Protein Albumin Triglycerides Arterial Blood Glucose Ur Specific [place] Coronavirus (PCR) 03/25/21 03/25/21 03/25/21 12:26 12:35 23:53 WBC RBC Hgb Hct MCV MCHC RDW Plt Count Lymph % (Auto) Andrew % (Auto) Lymph # (Auto) Andrew # (Auto) Seg Neutrophils % Seg Neuts % (Manual) Lymphocytes % (Manual) Monocytes % (Manual) Nucleated RBC % Seg Neutrophils # Seg Neutrophils # Man Lymphocytes # (Manual) Monocytes # (Manual) PT INR APTT D-Dimer Heparin Anti-Xa Level ABG pH POC ABG pCO2 POC ABG pO2 ABG pO2 100.5 H ABG HCO3 33.6 H ABG O2 Saturation ABG Base Excess 6.4 H ABG Hemoglobin 12.0 L ABG Oxyhemoglobin ABG Sodium ABG Potassium ABG Glucose Oxyhemoglobin Sodium Potassium Chloride Carbon Dioxide BUN Creatinine Glucose POC Glucose 108 H 137 H Lactic Acid Calcium Phosphorus Magnesium Ferritin Lactate Dehydrogenase C-Reactive Protein NT-Pro-B Natriuret Pep Total Protein Albumin Triglycerides Arterial Blood Glucose Ur Specific [place] Coronavirus (PCR) 03/26/21 03/26/21 03/26/21 05:14 07:09 07:09 WBC RBC Hgb Hct MCV MCHC RDW 16.5 H Plt Count 139 L Lymph % (Auto) Andrew % (Auto) Lymph # (Auto) Andrew # (Auto) Seg Neutrophils % Seg Neuts % (Manual) Lymphocytes % (Manual) Monocytes % (Manual) Nucleated RBC % Seg Neutrophils # Seg Neutrophils # Man Lymphocytes # (Manual) Monocytes # (Manual) PT INR APTT D-Dimer Heparin Anti-Xa Level ABG pH POC ABG pCO2 POC ABG pO2 ABG pO2 ABG HCO3 ABG O2 Saturation ABG Base Excess ABG Hemoglobin ABG Oxyhemoglobin ABG Sodium ABG Potassium ABG Glucose Oxyhemoglobin Sodium Potassium Chloride Carbon Dioxide BUN 22 H Creatinine 0.7 L Glucose 108 H POC Glucose 116 H Lactic Acid Calcium Phosphorus Magnesium Ferritin Lactate Dehydrogenase C-Reactive Protein NT-Pro-B Natriuret Pep Total Protein Albumin Triglycerides Arterial Blood Glucose Ur Specific [place] Coronavirus (PCR) 03/26/21 03/26/21 03/26/21 09:51 11:15 16:59 WBC RBC Hgb Hct MCV MCHC RDW Plt Count Lymph % (Auto) Andrew % (Auto) Lymph # (Auto) Andrew # (Auto) Seg Neutrophils % Seg Neuts % (Manual) Lymphocytes % (Manual) Monocytes % (Manual) Nucleated RBC % Seg Neutrophils # Seg Neutrophils # Man Lymphocytes # (Manual) Monocytes # (Manual) PT INR APTT D-Dimer Heparin Anti-Xa Level ABG pH POC ABG pCO2 POC ABG pO2 ABG pO2 ABG HCO3 ABG O2 Saturation ABG Base Excess ABG Hemoglobin ABG Oxyhemoglobin ABG Sodium ABG Potassium ABG Glucose Oxyhemoglobin Sodium Potassium Chloride Carbon Dioxide BUN Creatinine Glucose POC Glucose 107 H 119 H 174 H Lactic Acid Calcium Phosphorus Magnesium Ferritin Lactate Dehydrogenase C-Reactive Protein NT-Pro-B Natriuret Pep Total Protein Albumin Triglycerides Arterial Blood Glucose Ur Specific [place] Coronavirus (PCR) 03/26/21 03/27/21 03/27/21 22:18 07:08 10:28 WBC RBC Hgb Hct MCV 95 H MCHC RDW 16.2 H Plt Count 134 L Lymph % (Auto) Andrew % (Auto) Lymph # (Auto) Andrew # (Auto) Seg Neutrophils % Seg Neuts % (Manual) Lymphocytes % (Manual) Monocytes % (Manual) Nucleated RBC % Seg Neutrophils # Seg Neutrophils # Man Lymphocytes # (Manual) Monocytes # (Manual) PT INR APTT D-Dimer Heparin Anti-Xa Level ABG pH POC ABG pCO2 POC ABG pO2 ABG pO2 ABG HCO3 ABG O2 Saturation ABG Base Excess ABG Hemoglobin ABG Oxyhemoglobin ABG Sodium ABG Potassium ABG Glucose Oxyhemoglobin Sodium Potassium Chloride Carbon Dioxide BUN Creatinine Glucose POC Glucose 107 H 52 L Lactic Acid Calcium Phosphorus Magnesium Ferritin Lactate Dehydrogenase C-Reactive Protein NT-Pro-B Natriuret Pep Total Protein Albumin Triglycerides Arterial Blood Glucose Ur Specific [place] Coronavirus (PCR) 03/27/21 03/27/21 03/27/21 10:28 11:45 17:39 WBC RBC Hgb Hct MCV MCHC RDW Plt Count Lymph % (Auto) Andrew % (Auto) Lymph # (Auto) Andrew # (Auto) Seg Neutrophils % Seg Neuts % (Manual) Lymphocytes % (Manual) Monocytes % (Manual) Nucleated RBC % Seg Neutrophils # Seg Neutrophils # Man Lymphocytes # (Manual) Monocytes # (Manual) PT INR APTT D-Dimer Heparin Anti-Xa Level ABG pH POC ABG pCO2 POC ABG pO2 ABG pO2 ABG HCO3 ABG O2 Saturation ABG Base Excess ABG Hemoglobin ABG Oxyhemoglobin ABG Sodium ABG Potassium ABG Glucose Oxyhemoglobin Sodium 136 L Potassium Chloride Carbon Dioxide BUN Creatinine 0.7 L Glucose 150 H POC Glucose 121 H 165 H Lactic Acid Calcium Phosphorus Magnesium Ferritin Lactate Dehydrogenase C-Reactive Protein NT-Pro-B Natriuret Pep Total Protein Albumin Triglycerides Arterial Blood Glucose Ur Specific [place] Coronavirus (PCR) 03/28/21 03/28/21 03/28/21 07:14 11:42 18:22 WBC RBC Hgb Hct MCV MCHC RDW 16.4 H Plt Count Lymph % (Auto) Andrew % (Auto) Lymph # (Auto) Andrew # (Auto) Seg Neutrophils % Seg Neuts % (Manual) Lymphocytes % (Manual) Monocytes % (Manual) Nucleated RBC % Seg Neutrophils # Seg Neutrophils # Man Lymphocytes # (Manual) Monocytes # (Manual) PT INR APTT D-Dimer Heparin Anti-Xa Level ABG pH POC ABG pCO2 POC ABG pO2 ABG pO2 ABG HCO3 ABG O2 Saturation ABG Base Excess ABG Hemoglobin ABG Oxyhemoglobin ABG Sodium ABG Potassium ABG Glucose Oxyhemoglobin Sodium Potassium Chloride Carbon Dioxide BUN Creatinine Glucose POC Glucose 145 H 169 H Lactic Acid Calcium Phosphorus Magnesium Ferritin Lactate Dehydrogenase C-Reactive Protein NT-Pro-B Natriuret Pep Total Protein Albumin Triglycerides Arterial Blood Glucose Ur Specific [place] Coronavirus (PCR) 03/28/21 03/29/21 03/29/21 23:39 04:50 04:50 WBC RBC Hgb 11.0 L Hct 34.9 L MCV MCHC RDW 15.9 H Plt Count Lymph % (Auto) Andrew % (Auto) Lymph # (Auto) Andrew # (Auto) Seg Neutrophils % Seg Neuts % (Manual) Lymphocytes % (Manual) Monocytes % (Manual) Nucleated RBC % Seg Neutrophils # Seg Neutrophils # Man Lymphocytes # (Manual) Monocytes # (Manual) PT INR APTT D-Dimer Heparin Anti-Xa Level ABG pH POC ABG pCO2 POC ABG pO2 ABG pO2 ABG HCO3 ABG O2 Saturation ABG Base Excess ABG Hemoglobin ABG Oxyhemoglobin ABG Sodium ABG Potassium ABG Glucose Oxyhemoglobin Sodium Potassium Chloride Carbon Dioxide 34 H BUN Creatinine 0.6 L Glucose 152 H POC Glucose 139 H Lactic Acid Calcium Phosphorus Magnesium Ferritin Lactate Dehydrogenase C-Reactive Protein NT-Pro-B Natriuret Pep Total Protein Albumin Triglycerides Arterial Blood Glucose Ur Specific [place] Coronavirus (PCR) 03/29/21 03/29/21 03/29/21 05:25 11:34 18:02 WBC RBC Hgb Hct MCV MCHC RDW Plt Count Lymph % (Auto) Andrew % (Auto) Lymph # (Auto) Andrew # (Auto) Seg Neutrophils % Seg Neuts % (Manual) Lymphocytes % (Manual) Monocytes % (Manual) Nucleated RBC % Seg Neutrophils # Seg Neutrophils # Man Lymphocytes # (Manual) Monocytes # (Manual) PT INR APTT D-Dimer Heparin Anti-Xa Level ABG pH POC ABG pCO2 POC ABG pO2 ABG pO2 ABG HCO3 ABG O2 Saturation ABG Base Excess ABG Hemoglobin ABG Oxyhemoglobin ABG Sodium ABG Potassium ABG Glucose Oxyhemoglobin Sodium Potassium Chloride Carbon Dioxide BUN Creatinine Glucose POC Glucose 127 H 169 H 173 H Lactic Acid Calcium Phosphorus Magnesium Ferritin Lactate Dehydrogenase C-Reactive Protein NT-Pro-B Natriuret Pep Total Protein Albumin Triglycerides Arterial Blood Glucose Ur Specific [place] Coronavirus (PCR) 03/29/21 03/30/21 03/30/21 21:42 00:01 05:36 WBC RBC Hgb Hct MCV MCHC RDW 16.7 H Plt Count Lymph % (Auto) Andrew % (Auto) Lymph # (Auto) Andrew # (Auto) Seg Neutrophils % Seg Neuts % (Manual) Lymphocytes % (Manual) Monocytes % (Manual) Nucleated RBC % Seg Neutrophils # Seg Neutrophils # Man Lymphocytes # (Manual) Monocytes # (Manual) PT INR APTT D-Dimer Heparin Anti-Xa Level ABG pH POC ABG pCO2 POC ABG pO2 ABG pO2 ABG HCO3 ABG O2 Saturation ABG Base Excess ABG Hemoglobin ABG Oxyhemoglobin ABG Sodium ABG Potassium ABG Glucose Oxyhemoglobin Sodium Potassium Chloride Carbon Dioxide BUN Creatinine Glucose POC Glucose 184 H 161 H Lactic Acid Calcium Phosphorus Magnesium Ferritin Lactate Dehydrogenase C-Reactive Protein NT-Pro-B Natriuret Pep Total Protein Albumin Triglycerides Arterial Blood Glucose Ur Specific [place] Coronavirus (PCR) 03/30/21 03/30/21 03/30/21 05:36 06:03 11:32 WBC RBC Hgb Hct MCV MCHC RDW Plt Count Lymph % (Auto) Andrew % (Auto) Lymph # (Auto) Andrew # (Auto) Seg Neutrophils % Seg Neuts % (Manual) Lymphocytes % (Manual) Monocytes % (Manual) Nucleated RBC % Seg Neutrophils # Seg Neutrophils # Man Lymphocytes # (Manual) Monocytes # (Manual) PT INR APTT D-Dimer Heparin Anti-Xa Level ABG pH POC ABG pCO2 POC ABG pO2 ABG pO2 ABG HCO3 ABG O2 Saturation ABG Base Excess ABG Hemoglobin ABG Oxyhemoglobin ABG Sodium ABG Potassium ABG Glucose Oxyhemoglobin Sodium Potassium Chloride Carbon Dioxide BUN Creatinine 0.5 L Glucose 127 H POC Glucose 130 H 183 H Lactic Acid Calcium Phosphorus Magnesium Ferritin Lactate Dehydrogenase C-Reactive Protein NT-Pro-B Natriuret Pep Total Protein Albumin Triglycerides Arterial Blood Glucose Ur Specific [place] Coronavirus (PCR) 03/30/21 03/30/21 03/30/21 15:00 16:23 21:07 WBC RBC Hgb Hct MCV MCHC RDW Plt Count Lymph % (Auto) Andrew % (Auto) Lymph # (Auto) Andrew # (Auto) Seg Neutrophils % Seg Neuts % (Manual) Lymphocytes % (Manual) Monocytes % (Manual) Nucleated RBC % Seg Neutrophils # Seg Neutrophils # Man Lymphocytes # (Manual) Monocytes # (Manual) PT INR APTT D-Dimer Heparin Anti-Xa Level ABG pH POC ABG pCO2 POC ABG pO2 ABG pO2 67.2 L ABG HCO3 34.9 H ABG O2 Saturation ABG Base Excess 9.1 H ABG Hemoglobin 11.6 L ABG Oxyhemoglobin ABG Sodium ABG Potassium ABG Glucose Oxyhemoglobin 93.0 L Sodium Potassium Chloride Carbon Dioxide BUN Creatinine Glucose POC Glucose 162 H 146 H Lactic Acid Calcium Phosphorus Magnesium Ferritin Lactate Dehydrogenase C-Reactive Protein NT-Pro-B Natriuret Pep Total Protein Albumin Triglycerides Arterial Blood Glucose Ur Specific [place] Coronavirus (PCR) 03/30/21 03/31/21 03/31/21 23:23 05:44 11:19 WBC RBC Hgb Hct MCV MCHC RDW Plt Count Lymph % (Auto) Andrew % (Auto) Lymph # (Auto) Andrew # (Auto) Seg Neutrophils % Seg Neuts % (Manual) Lymphocytes % (Manual) Monocytes % (Manual) Nucleated RBC % Seg Neutrophils # Seg Neutrophils # Man Lymphocytes # (Manual) Monocytes # (Manual) PT INR APTT D-Dimer Heparin Anti-Xa Level ABG pH POC ABG pCO2 POC ABG pO2 ABG pO2 ABG HCO3 ABG O2 Saturation ABG Base Excess ABG Hemoglobin ABG Oxyhemoglobin ABG Sodium ABG Potassium ABG Glucose Oxyhemoglobin Sodium Potassium Chloride Carbon Dioxide BUN Creatinine Glucose POC Glucose 138 H 180 H 178 H Lactic Acid Calcium Phosphorus Magnesium Ferritin Lactate Dehydrogenase C-Reactive Protein NT-Pro-B Natriuret Pep Total Protein Albumin Triglycerides Arterial Blood Glucose Ur Specific [place] Coronavirus (PCR) 03/31/21 03/31/21 03/31/21 12:50 13:30 16:06 WBC RBC Hgb 11.3 L Hct 35.1 L MCV MCHC RDW 16.5 H Plt Count Lymph % (Auto) 7.6 L Andrew % (Auto) 9.5 H Lymph # (Auto) 0.6 L Andrew # (Auto) Seg Neutrophils % 78.3 H Seg Neuts % (Manual) Lymphocytes % (Manual) Monocytes % (Manual) Nucleated RBC % Seg Neutrophils # Seg Neutrophils # Man Lymphocytes # (Manual) Monocytes # (Manual) PT INR APTT D-Dimer Heparin Anti-Xa Level ABG pH POC ABG pCO2 POC ABG pO2 ABG pO2 99.4 H ABG HCO3 34.9 H ABG O2 Saturation ABG Base Excess 8.4 H ABG Hemoglobin 11.8 L ABG Oxyhemoglobin ABG Sodium ABG Potassium ABG Glucose Oxyhemoglobin Sodium Potassium Chloride Carbon Dioxide BUN Creatinine Glucose POC Glucose 197 H Lactic Acid Calcium Phosphorus Magnesium Ferritin Lactate Dehydrogenase C-Reactive Protein NT-Pro-B Natriuret Pep Total Protein Albumin Triglycerides Arterial Blood Glucose Ur Specific [place] Coronavirus (PCR) 03/31/21 04/01/21 04/01/21 20:51 05:37 07:16 WBC RBC 3.39 L Hgb 10.5 L Hct 31.6 L MCV MCHC RDW 16.1 H Plt Count Lymph % (Auto) [place] % (Auto) Lymph # (Auto) Andrew # (Auto) Seg Neutrophils % Seg Neuts % (Manual) Lymphocytes % (Manual) Monocytes % (Manual) Nucleated RBC % Seg Neutrophils # Seg Neutrophils # Man Lymphocytes # (Manual) Monocytes # (Manual) PT INR APTT D-Dimer Heparin Anti-Xa Level ABG pH POC ABG pCO2 POC ABG pO2 ABG pO2 ABG HCO3 ABG O2 Saturation ABG Base Excess ABG Hemoglobin ABG Oxyhemoglobin ABG Sodium ABG Potassium ABG Glucose Oxyhemoglobin Sodium Potassium Chloride Carbon Dioxide BUN Creatinine Glucose POC Glucose 140 H 128 H Lactic Acid Calcium Phosphorus Magnesium Ferritin Lactate Dehydrogenase C-Reactive Protein NT-Pro-B Natriuret Pep Total Protein Albumin Triglycerides Arterial Blood Glucose Ur Specific [place] Coronavirus (PCR) 04/01/21 04/01/21 04/01/21 07:16 11:52 16:56 WBC RBC Hgb Hct MCV MCHC RDW Plt Count Lymph % (Auto) Andrew % (Auto) Lymph # (Auto) Andrew # (Auto) Seg Neutrophils % Seg Neuts % (Manual) Lymphocytes % (Manual) Monocytes % (Manual) Nucleated RBC % Seg Neutrophils # Seg Neutrophils # Man Lymphocytes # (Manual) Monocytes # (Manual) PT INR APTT D-Dimer Heparin Anti-Xa Level ABG pH POC ABG pCO2 POC ABG pO2 ABG pO2 ABG HCO3 ABG O2 Saturation ABG Base Excess ABG Hemoglobin ABG Oxyhemoglobin ABG Sodium ABG Potassium ABG Glucose Oxyhemoglobin Sodium Potassium Chloride Carbon Dioxide BUN Creatinine 0.6 L Glucose 131 H POC Glucose 182 H 179 H Lactic Acid Calcium 8.3 L Phosphorus Magnesium Ferritin Lactate Dehydrogenase C-Reactive Protein NT-Pro-B Natriuret Pep Total Protein Albumin Triglycerides Arterial Blood Glucose Ur Specific [place] Coronavirus (PCR) 04/01/21 04/01/21 04/02/21 21:30 23:40 04:26 WBC RBC 3.62 L Hgb 10.8 L Hct 33.9 L MCV MCHC RDW 16.0 H Plt Count Lymph % (Auto) Andrew % (Auto) Lymph # (Auto) Andrew # (Auto) Seg Neutrophils % Seg Neuts % (Manual) Lymphocytes % (Manual) Monocytes % (Manual) Nucleated RBC % Seg Neutrophils # Seg Neutrophils # Man Lymphocytes # (Manual) Monocytes # (Manual) PT INR APTT D-Dimer Heparin Anti-Xa Level ABG pH POC ABG pCO2 POC ABG pO2 ABG pO2 ABG HCO3 ABG O2 Saturation ABG Base Excess ABG Hemoglobin ABG Oxyhemoglobin ABG Sodium ABG Potassium ABG Glucose Oxyhemoglobin Sodium Potassium Chloride Carbon Dioxide BUN Creatinine Glucose POC Glucose 131 H 129 H Lactic Acid Calcium Phosphorus Magnesium Ferritin Lactate Dehydrogenase C-Reactive Protein NT-Pro-B Natriuret Pep Total Protein Albumin Triglycerides Arterial Blood Glucose Ur Specific [place] Coronavirus (PCR) 04/02/21 04/02/21 04/02/21 04:26 05:54 11:35 WBC RBC Hgb Hct MCV MCHC RDW Plt Count Lymph % (Auto) Andrew % (Auto) Lymph # (Auto) Andrew # (Auto) Seg Neutrophils % Seg Neuts % (Manual) Lymphocytes % (Manual) Monocytes % (Manual) Nucleated RBC % Seg Neutrophils # Seg Neutrophils # Man Lymphocytes # (Manual) Monocytes # (Manual) PT INR APTT D-Dimer Heparin Anti-Xa Level ABG pH POC ABG pCO2 POC ABG pO2 ABG pO2 ABG HCO3 ABG O2 Saturation ABG Base Excess ABG Hemoglobin ABG Oxyhemoglobin ABG Sodium ABG Potassium ABG Glucose Oxyhemoglobin Sodium 136 L Potassium Chloride Carbon Dioxide BUN Creatinine 0.6 L Glucose 152 H POC Glucose 151 H 178 H Lactic Acid Calcium Phosphorus Magnesium Ferritin Lactate Dehydrogenase C-Reactive Protein NT-Pro-B Natriuret Pep Total Protein Albumin Triglycerides Arterial Blood Glucose Ur Specific [place] Coronavirus (PCR) 04/02/21 04/02/21 04/02/21 16:11 21:09 23:38 WBC RBC Hgb Hct MCV MCHC RDW Plt Count Lymph % (Auto) Andrew % (Auto) Lymph # (Auto) Andrew # (Auto) Seg Neutrophils % Seg Neuts % (Manual) Lymphocytes % (Manual) Monocytes % (Manual) Nucleated RBC % Seg Neutrophils # Seg Neutrophils # Man Lymphocytes # (Manual) Monocytes # (Manual) PT INR APTT D-Dimer Heparin Anti-Xa Level ABG pH POC ABG pCO2 POC ABG pO2 ABG pO2 ABG HCO3 ABG O2 Saturation ABG Base Excess ABG Hemoglobin ABG Oxyhemoglobin ABG Sodium ABG Potassium ABG Glucose Oxyhemoglobin Sodium Potassium Chloride Carbon Dioxide BUN Creatinine Glucose POC Glucose 186 H 145 H 152 H Lactic Acid Calcium Phosphorus Magnesium Ferritin Lactate Dehydrogenase C-Reactive Protein NT-Pro-B Natriuret Pep Total Protein Albumin Triglycerides Arterial Blood Glucose Ur Specific [place] Coronavirus (PCR) 04/03/21 04/03/21 04/03/21 04:14 04:14 05:27 WBC RBC 3.62 L Hgb 11.0 L Hct 34.0 L MCV MCHC RDW 16.3 H Plt Count Lymph % (Auto) [place] % (Auto) Lymph # (Auto) Andrew # (Auto) Seg Neutrophils % Seg Neuts % (Manual) Lymphocytes % (Manual) Monocytes % (Manual) Nucleated RBC % Seg Neutrophils # Seg Neutrophils # Man Lymphocytes # (Manual) Monocytes # (Manual) PT INR APTT D-Dimer Heparin Anti-Xa Level ABG pH POC ABG pCO2 POC ABG pO2 ABG pO2 ABG HCO3 ABG O2 Saturation ABG Base Excess ABG Hemoglobin ABG Oxyhemoglobin ABG Sodium ABG Potassium ABG Glucose Oxyhemoglobin Sodium Potassium Chloride Carbon Dioxide 31 H BUN Creatinine 0.6 L Glucose 155 H POC Glucose 165 H Lactic Acid Calcium Phosphorus Magnesium Ferritin Lactate Dehydrogenase C-Reactive Protein NT-Pro-B Natriuret Pep Total Protein Albumin Triglycerides Arterial Blood Glucose Ur Specific [place] Coronavirus (PCR) 04/03/21 04/03/21 04/03/21 11:02 16:19 19:45 WBC RBC Hgb Hct MCV MCHC RDW Plt Count Lymph % (Auto) Andrew % (Auto) Lymph # (Auto) Andrew # (Auto) Seg Neutrophils % Seg Neuts % (Manual) Lymphocytes % (Manual) Monocytes % (Manual) Nucleated RBC % Seg Neutrophils # Seg Neutrophils # Man Lymphocytes # (Manual) Monocytes # (Manual) PT INR APTT D-Dimer Heparin Anti-Xa Level ABG pH POC ABG pCO2 POC ABG pO2 ABG pO2 ABG HCO3 ABG O2 Saturation ABG Base Excess ABG Hemoglobin ABG Oxyhemoglobin ABG Sodium ABG Potassium ABG Glucose Oxyhemoglobin Sodium Potassium Chloride Carbon Dioxide BUN Creatinine Glucose POC Glucose 161 H 180 H 136 H Lactic Acid Calcium Phosphorus Magnesium Ferritin Lactate Dehydrogenase C-Reactive Protein NT-Pro-B Natriuret Pep Total Protein Albumin Triglycerides Arterial Blood Glucose Ur Specific [place] Coronavirus (PCR) 04/04/21 04/04/21 04/04/21 00:21 04:33 04:33 WBC 13.1 H RBC 3.49 L Hgb 10.3 L Hct 32.7 L MCV MCHC RDW 16.1 H Plt Count Lymph % (Auto) [place] % (Auto) Lymph # (Auto) Andrew # (Auto) Seg Neutrophils % Seg Neuts % (Manual) Lymphocytes % (Manual) Monocytes % (Manual) Nucleated RBC % Seg Neutrophils # Seg Neutrophils # Man Lymphocytes # (Manual) Monocytes # (Manual) PT INR APTT D-Dimer Heparin Anti-Xa Level ABG pH POC ABG pCO2 POC ABG pO2 ABG pO2 ABG HCO3 ABG O2 Saturation ABG Base Excess ABG Hemoglobin ABG Oxyhemoglobin ABG Sodium ABG Potassium ABG Glucose Oxyhemoglobin Sodium Potassium Chloride Carbon Dioxide 31 H BUN Creatinine 0.4 L Glucose 153 H POC Glucose 140 H Lactic Acid Calcium Phosphorus Magnesium Ferritin Lactate Dehydrogenase C-Reactive Protein NT-Pro-B Natriuret Pep Total Protein Albumin Triglycerides Arterial Blood Glucose Ur Specific [place] Coronavirus (PCR) 04/04/21 04/04/21 04/04/21 05:16 11:39 17:22 WBC RBC Hgb Hct MCV MCHC RDW Plt Count Lymph % (Auto) [place] % (Auto) Lymph # (Auto) Andrew # (Auto) Seg Neutrophils % Seg Neuts % (Manual) Lymphocytes % (Manual) Monocytes % (Manual) Nucleated RBC % Seg Neutrophils # Seg Neutrophils # Man Lymphocytes # (Manual) Monocytes # (Manual) PT INR APTT D-Dimer Heparin Anti-Xa Level ABG pH POC ABG pCO2 POC ABG pO2 ABG pO2 ABG HCO3 ABG O2 Saturation ABG Base Excess ABG Hemoglobin ABG Oxyhemoglobin ABG Sodium ABG Potassium ABG Glucose Oxyhemoglobin Sodium Potassium Chloride Carbon Dioxide BUN Creatinine Glucose POC Glucose 152 H 154 H 198 H Lactic Acid Calcium Phosphorus Magnesium Ferritin Lactate Dehydrogenase C-Reactive Protein NT-Pro-B Natriuret Pep Total Protein Albumin Triglycerides Arterial Blood Glucose Ur Specific [place] Coronavirus (PCR) 04/04/21 04/04/21 04/05/21 20:14 23:16 04:15 WBC RBC 3.21 L Hgb 10.0 L Hct 30.3 L MCV MCHC RDW 16.4 H Plt Count Lymph % (Auto) [place] % (Auto) Lymph # (Auto) Andrew # (Auto) Seg Neutrophils % Seg Neuts % (Manual) Lymphocytes % (Manual) Monocytes % (Manual) Nucleated RBC % Seg Neutrophils # Seg Neutrophils # Man Lymphocytes # (Manual) Monocytes # (Manual) PT INR APTT D-Dimer Heparin Anti-Xa Level ABG pH POC ABG pCO2 POC ABG pO2 ABG pO2 ABG HCO3 ABG O2 Saturation ABG Base Excess ABG Hemoglobin ABG Oxyhemoglobin ABG Sodium ABG Potassium ABG Glucose Oxyhemoglobin Sodium Potassium Chloride Carbon Dioxide BUN Creatinine Glucose POC Glucose 161 H 139 H Lactic Acid Calcium Phosphorus Magnesium Ferritin Lactate Dehydrogenase C-Reactive Protein NT-Pro-B Natriuret Pep Total Protein Albumin Triglycerides Arterial Blood Glucose Ur Specific [place] Coronavirus (PCR) 04/05/21 04/05/21 04/05/21 04:15 05:34 12:09 WBC RBC Hgb Hct MCV MCHC RDW Plt Count Lymph % (Auto) [place] % (Auto) Lymph # (Auto) Andrew # (Auto) Seg Neutrophils % Seg Neuts % (Manual) Lymphocytes % (Manual) Monocytes % (Manual) Nucleated RBC % Seg Neutrophils # Seg Neutrophils # Man Lymphocytes # (Manual) Monocytes # (Manual) PT INR APTT D-Dimer Heparin Anti-Xa Level ABG pH POC ABG pCO2 POC ABG pO2 ABG pO2 ABG HCO3 ABG O2 Saturation ABG Base Excess ABG Hemoglobin ABG Oxyhemoglobin ABG Sodium ABG Potassium ABG Glucose Oxyhemoglobin Sodium Potassium Chloride 97.6 L Carbon Dioxide 32 H BUN Creatinine 0.5 L Glucose 147 H POC Glucose 145 H 173 H Lactic Acid Calcium Phosphorus Magnesium Ferritin Lactate Dehydrogenase C-Reactive Protein NT-Pro-B Natriuret Pep Total Protein Albumin Triglycerides Arterial Blood Glucose Ur Specific [place] Coronavirus (PCR) 04/05/21 04/05/21 04/05/21 17:35 21:07 23:15 WBC RBC Hgb Hct MCV MCHC RDW Plt Count Lymph % (Auto) [place] % (Auto) Lymph # (Auto) Andrew # (Auto) Seg Neutrophils % Seg Neuts % (Manual) Lymphocytes % (Manual) Monocytes % (Manual) Nucleated RBC % Seg Neutrophils # Seg Neutrophils # Man Lymphocytes # (Manual) Monocytes # (Manual) PT INR APTT D-Dimer Heparin Anti-Xa Level ABG pH POC ABG pCO2 POC ABG pO2 ABG pO2 ABG HCO3 ABG O2 Saturation ABG Base Excess ABG Hemoglobin ABG Oxyhemoglobin ABG Sodium ABG Potassium ABG Glucose Oxyhemoglobin Sodium Potassium Chloride Carbon Dioxide BUN Creatinine Glucose POC Glucose 143 H 157 H 171 H Lactic Acid Calcium Phosphorus Magnesium Ferritin Lactate Dehydrogenase C-Reactive Protein NT-Pro-B Natriuret Pep Total Protein Albumin Triglycerides Arterial Blood Glucose Ur Specific [place] Coronavirus (PCR) 04/06/21 04/06/21 04/06/21 04:49 05:14 11:42 WBC RBC Hgb Hct MCV MCHC RDW Plt Count Lymph % (Auto) [place] % (Auto) Lymph # (Auto) Andrew # (Auto) Seg Neutrophils % Seg Neuts % (Manual) Lymphocytes % (Manual) Monocytes % (Manual) Nucleated RBC % Seg Neutrophils # Seg Neutrophils # Man Lymphocytes # (Manual) Monocytes # (Manual) PT INR APTT D-Dimer Heparin Anti-Xa Level ABG pH POC ABG pCO2 57.4 H POC ABG pO2 55.1 L ABG pO2 ABG HCO3 ABG O2 Saturation ABG Base Excess ABG Hemoglobin 11.5 L ABG Oxyhemoglobin 87.5 L ABG Sodium ABG Potassium ABG Glucose Oxyhemoglobin Sodium Potassium Chloride Carbon Dioxide BUN Creatinine Glucose POC Glucose 145 H 171 H Lactic Acid Calcium Phosphorus Magnesium Ferritin Lactate Dehydrogenase C-Reactive Protein NT-Pro-B Natriuret Pep Total Protein Albumin Triglycerides Arterial Blood Glucose Ur Specific [place] Coronavirus (PCR) 04/06/21 04/06/21 04/06/21 11:50 15:36 15:36 WBC RBC Hgb 10.4 L Hct 32.5 L MCV MCHC RDW Plt Count 444 H Lymph % (Auto) Andrew % (Auto) Lymph # (Auto) Andrew # (Auto) Seg Neutrophils % Seg Neuts % (Manual) Lymphocytes % (Manual) Monocytes % (Manual) Nucleated RBC % Seg Neutrophils # Seg Neutrophils # Man Lymphocytes # (Manual) Monocytes # (Manual) PT INR APTT 37.1 H D-Dimer Heparin Anti-Xa Level ABG pH 7.341 L POC ABG pCO2 POC ABG pO2 ABG pO2 108.9 H ABG HCO3 38.9 H ABG O2 Saturation ABG Base Excess 10.6 H ABG Hemoglobin 11.5 L ABG Oxyhemoglobin ABG Sodium ABG Potassium ABG Glucose Oxyhemoglobin Sodium Potassium Chloride Carbon Dioxide BUN Creatinine Glucose POC Glucose Lactic Acid Calcium Phosphorus Magnesium Ferritin Lactate Dehydrogenase C-Reactive Protein NT-Pro-B Natriuret Pep Total Protein Albumin Triglycerides Arterial Blood Glucose Ur Specific [place] Coronavirus (PCR) 04/06/21 04/07/21 04/07/21 17:57 00:30 00:32 WBC RBC Hgb Hct MCV MCHC RDW Plt Count Lymph % (Auto) Andrew % (Auto) Lymph # (Auto) Andrew # (Auto) Seg Neutrophils % Seg Neuts % (Manual) Lymphocytes % (Manual) Monocytes % (Manual) Nucleated RBC % Seg Neutrophils # Seg Neutrophils # Man Lymphocytes # (Manual) Monocytes # (Manual) PT INR APTT D-Dimer Heparin Anti-Xa Level < 0.10 L ABG pH POC ABG pCO2 POC ABG pO2 ABG pO2 ABG HCO3 ABG O2 Saturation ABG Base Excess ABG Hemoglobin ABG Oxyhemoglobin ABG Sodium ABG Potassium ABG Glucose Oxyhemoglobin Sodium Potassium Chloride Carbon Dioxide BUN Creatinine Glucose POC Glucose 151 H 149 H Lactic Acid Calcium Phosphorus Magnesium Ferritin Lactate Dehydrogenase C-Reactive Protein NT-Pro-B Natriuret Pep Total Protein Albumin Triglycerides Arterial Blood Glucose Ur Specific [place] Coronavirus (PCR) 04/07/21 04/07/21 04/07/21 05:34 06:08 06:08 WBC RBC 3.20 L Hgb 9.6 L Hct 29.8 L MCV MCHC RDW 16.0 H Plt Count 455 H Lymph % (Auto) Andrew % (Auto) Lymph # (Auto) Andrew # (Auto) Seg Neutrophils % Seg Neuts % (Manual) Lymphocytes % (Manual) Monocytes % (Manual) Nucleated RBC % Seg Neutrophils # Seg Neutrophils # Man Lymphocytes # (Manual) Monocytes # (Manual) PT INR APTT D-Dimer Heparin Anti-Xa Level ABG pH POC ABG pCO2 POC ABG pO2 ABG pO2 ABG HCO3 ABG O2 Saturation ABG Base Excess ABG Hemoglobin ABG Oxyhemoglobin ABG Sodium ABG Potassium ABG Glucose Oxyhemoglobin Sodium Potassium Chloride Carbon Dioxide 35 H BUN Creatinine 0.5 L Glucose 216 H POC Glucose 182 H Lactic Acid Calcium Phosphorus Magnesium Ferritin Lactate Dehydrogenase C-Reactive Protein NT-Pro-B Natriuret Pep Total Protein Albumin Triglycerides Arterial Blood Glucose Ur Specific [place] Coronavirus (PCR) 04/07/21 04/07/21 04/07/21 07:55 11:57 17:12 WBC RBC Hgb Hct MCV MCHC RDW Plt Count Lymph % (Auto) Andrew % (Auto) Lymph # (Auto) Andrew # (Auto) Seg Neutrophils % Seg Neuts % (Manual) Lymphocytes % (Manual) Monocytes % (Manual) Nucleated RBC % Seg Neutrophils # Seg Neutrophils # Man Lymphocytes # (Manual) Monocytes # (Manual) PT INR APTT D-Dimer Heparin Anti-Xa Level < 0.10 L ABG pH POC ABG pCO2 POC ABG pO2 ABG pO2 ABG HCO3 ABG O2 Saturation ABG Base Excess ABG Hemoglobin ABG Oxyhemoglobin ABG Sodium ABG Potassium ABG Glucose Oxyhemoglobin Sodium Potassium Chloride Carbon Dioxide BUN Creatinine Glucose POC Glucose 182 H 165 H Lactic Acid Calcium Phosphorus Magnesium Ferritin Lactate Dehydrogenase C-Reactive Protein NT-Pro-B Natriuret Pep Total Protein Albumin Triglycerides Arterial Blood Glucose Ur Specific [place] Coronavirus (PCR) 04/07/21 04/08/21 04/08/21 19:55 00:16 03:57 WBC RBC Hgb Hct MCV MCHC RDW Plt Count Lymph % (Auto) Andrew % (Auto) Lymph # (Auto) Andrew # (Auto) Seg Neutrophils % Seg Neuts % (Manual) Lymphocytes % (Manual) Monocytes % (Manual) Nucleated RBC % Seg Neutrophils # Seg Neutrophils # Man Lymphocytes # (Manual) Monocytes # (Manual) PT INR APTT D-Dimer Heparin Anti-Xa Level < 0.10 L ABG pH POC ABG pCO2 POC ABG pO2 ABG pO2 ABG HCO3 ABG O2 Saturation ABG Base Excess ABG Hemoglobin ABG Oxyhemoglobin ABG Sodium ABG Potassium ABG Glucose Oxyhemoglobin Sodium Potassium 5.8 H Chloride 95.5 L Carbon Dioxide 37 H BUN Creatinine 0.5 L Glucose 161 H POC Glucose 175 H Lactic Acid Calcium Phosphorus Magnesium Ferritin Lactate Dehydrogenase C-Reactive Protein NT-Pro-B Natriuret Pep Total Protein Albumin Triglycerides Arterial Blood Glucose Ur Specific [place] Coronavirus (PCR) 04/08/21 04/08/21 04/08/21 04:00 05:43 09:26 WBC RBC 3.25 L Hgb 9.9 L Hct 30.8 L MCV 95 H MCHC RDW 16.0 H Plt Count 487 H Lymph % (Auto) Andrew % (Auto) Lymph # (Auto) Andrew # (Auto) Seg Neutrophils % Seg Neuts % (Manual) Lymphocytes % (Manual) Monocytes % (Manual) Nucleated RBC % Seg Neutrophils # Seg Neutrophils # Man Lymphocytes # (Manual) Monocytes # (Manual) PT INR APTT D-Dimer Heparin Anti-Xa Level ABG pH POC ABG pCO2 POC ABG pO2 ABG pO2 ABG HCO3 ABG O2 Saturation ABG Base Excess ABG Hemoglobin ABG Oxyhemoglobin ABG Sodium ABG Potassium ABG Glucose Oxyhemoglobin Sodium Potassium Chloride Carbon Dioxide BUN Creatinine Glucose POC Glucose 162 H 164 H Lactic Acid Calcium Phosphorus Magnesium Ferritin Lactate Dehydrogenase C-Reactive Protein NT-Pro-B Natriuret Pep Total Protein Albumin Triglycerides Arterial Blood Glucose Ur Specific [place] Coronavirus (PCR) 04/08/21 04/08/21 04/08/21 11:53 17:19 20:35 WBC RBC Hgb Hct MCV MCHC RDW Plt Count Lymph % (Auto) Andrew % (Auto) Lymph # (Auto) Andrew # (Auto) Seg Neutrophils % Seg Neuts % (Manual) Lymphocytes % (Manual) Monocytes % (Manual) Nucleated RBC % Seg Neutrophils # Seg Neutrophils # Man Lymphocytes # (Manual) Monocytes # (Manual) PT INR APTT D-Dimer Heparin Anti-Xa Level ABG pH POC ABG pCO2 POC ABG pO2 ABG pO2 ABG HCO3 ABG O2 Saturation ABG Base Excess ABG Hemoglobin ABG Oxyhemoglobin ABG Sodium ABG Potassium ABG Glucose Oxyhemoglobin Sodium Potassium Chloride Carbon Dioxide BUN Creatinine Glucose POC Glucose 170 H 157 H 190 H Lactic Acid Calcium Phosphorus Magnesium Ferritin Lactate Dehydrogenase C-Reactive Protein NT-Pro-B Natriuret Pep Total Protein Albumin Triglycerides Arterial Blood Glucose Ur Specific [place] Coronavirus (PCR) 04/08/21 04/09/21 04/09/21 23:52 04:21 04:21 WBC 11.4 H RBC 2.97 L Hgb 8.9 L Hct 27.8 L MCV MCHC RDW 15.8 H Plt Count 485 H Lymph % (Auto) Andrew % (Auto) Lymph # (Auto) Andrew # (Auto) Seg Neutrophils % Seg Neuts % (Manual) Lymphocytes % (Manual) Monocytes % (Manual) Nucleated RBC % Seg Neutrophils # Seg Neutrophils # Man Lymphocytes # (Manual) Monocytes # (Manual) PT INR APTT D-Dimer Heparin Anti-Xa Level ABG pH POC ABG pCO2 POC ABG pO2 ABG pO2 ABG HCO3 ABG O2 Saturation ABG Base Excess ABG Hemoglobin ABG Oxyhemoglobin ABG Sodium ABG Potassium ABG Glucose Oxyhemoglobin Sodium Potassium Chloride 97.1 L Carbon Dioxide 40 H BUN 21 H Creatinine 0.5 L Glucose 149 H POC Glucose 170 H Lactic Acid Calcium Phosphorus 1.90 L D Magnesium Ferritin Lactate Dehydrogenase C-Reactive Protein NT-Pro-B Natriuret Pep Total Protein Albumin Triglycerides Arterial Blood Glucose Ur Specific [place] Coronavirus (PCR) 04/09/21 04/09/21 05:27 11:55 WBC RBC Hgb Hct MCV MCHC RDW Plt Count Lymph % (Auto) Andrew % (Auto) Lymph # (Auto) Andrew # (Auto) Seg Neutrophils % Seg Neuts % (Manual) Lymphocytes % (Manual) Monocytes % (Manual) Nucleated RBC % Seg Neutrophils # Seg Neutrophils # Man Lymphocytes # (Manual) Monocytes # (Manual) PT INR APTT D-Dimer Heparin Anti-Xa Level ABG pH POC ABG pCO2 POC ABG pO2 ABG pO2 ABG HCO3 ABG O2 Saturation ABG Base Excess ABG Hemoglobin ABG Oxyhemoglobin ABG Sodium ABG Potassium ABG Glucose Oxyhemoglobin Sodium Potassium Chloride Carbon Dioxide BUN Creatinine Glucose POC Glucose 144 H 190 H Lactic Acid Calcium Phosphorus Magnesium Ferritin Lactate Dehydrogenase C-Reactive Protein NT-Pro-B Natriuret Pep Total Protein Albumin Triglycerides Arterial Blood Glucose Ur Specific [place] Coronavirus (PCR) Chest x-ray: pending Allied health notes reviewed: nursing
--- NOTE | 2021-04-09 15:51 | Progress Note ---
<ABDULLAHIJudieMARISABELLester - Last Filed: 04/09/21 15:53> Assessment and Plan Assessment and plan: This is a 61-year-old man with HTN and DM admitted with COVID-19 pneumonia, acute hypoxic respiratory failure, sepsis Neuro: Acute encephalopathy -Sedated with fentanyl drip -RASS goal 0 to -1 -Avoid delirium -On Seroquel and Librium -Seroquel increased to 250 twice daily -Scheduled Lortab for 7 days -Reorientation as needed -Maintain sleep-wake cycle -As needed analgesia -CT head shows no acute intracranial abnormality -Neurology consulted, appreciate recommendations -Repeat CT head Saturday Cardiac: h/o Hypertension -Cardiology consulted, appreciate recommendations -Blood pressure monitoring per protocol -Echocardiogram shows a mildly dilated ascending aorta, normal LV systolic function, mild concentric LVH, LVEF 60 to 65% -Antihypertensive regimen: Hydralazine, metoprolol, amlodipine Respiratory: Acute hypoxic respiratory failure -CCM consulted, appreciate recommendations -Intubated on 03/10 with 7.50 ETT at 24 at the lips, s/p trach on 03/29 -A.m. vent settings: Assist-control rate 12, tidal volume 450, PEEP 10, FiO2 55% -See RT notes for titration -[facility] fiO2 40% -A.m. ABG noted -Albuterol as needed, Brovana, Pulmicort -VAP bundle -SPO2 monitoring GI: Obesity, external hemorrhoids -24 hours +1319 mL -PPI -NTR consulted for tube feedings -BR: Senokot, miralax -BM 04/06 -As needed Preparation H : Urinary retention, hypophosphatemia -Nephrology consulted, appreciate recommendations -Strict intake and output -Renally dose medications -Avoid nephrotoxic medications -Doxazosin increased to twice daily -Replete phosphate -trend BMP ID: Severe sepsis (POA), COVID-19 pneumonia, stenotrophomonas maltophilia and tracheal aspirate -Infectious disease consulted, appreciate recommendations -Antibiotic therapy with cefepime -Due to low procalcitonin and cultures remaining negative cefepime was discontinued -S/p remdesivir for 5 days -S/p Actemra 03/10/2021 -f/u blood culture -Monitor WBC and temperature curve -steroids tapered off -04/07 Per ID: if persistently febrile and WBC rises, reculture and then restart abx: IV Cefepime + Vancomycin Heme: Acute right upper extremity DVT , superficial thrombus in left gastrocnemius vein -Bilateral lower extremity ultrasound negative for DVT, superficial thrombus in left gastrocnemius vein -repeat BLE Doppler US show superficial thrombus -Repeat bilateral upper extremity ultrasound shows DVT in right upper extremity -heparin drip -Titration per protocol -repeat BLE UE dopplar showed superficial thrombus within the gastrocnemius vein changed from previous study -CTA chest shows no gross pulm embolism -Trend CBC -SCDs to BLE while in bed -Transfuse hemoglobin less than 7 -Monitor for signs of bleeding Endo: h/o DM -Avoid hypoglycemia -SSI -Accu-Cheks q. 6 -Long-acting insulin, titrate as needed The high probability of a clinically significant, sudden or life threatening deterioration of the [multi] system(s) required my full and direct attention, intervention and personal management. The aggregate critical care time was [60] minutes. This time is in addition to time spent performing reported procedures but includes the following: [x] Data Review and interpretation [x] Patient assessment and monitoring of vital signs [x] Documentation [x] Medication orders and management Disposition Plan: icu Total Time Spent with Patient (Minutes): 60 History Interval history: This is a 61-year-old male with HTN and DM who presented to the emergency department on 03/09 with shortness of breath and hypoxia via EMS. Patient had apparently been feeling ill for proxy 1 week prior to mentation. Upon EMS arrival patient SPO2 was in the low 70s and improved to upper 80slow 90s on nonrebreather and he was transported to [facility] in the emergency department patient was noted to be hypoxic and placed on a BiPAP with improvement to mentation and hypoxia. CXR showed bilateral patchy infiltrates. Lab work showed leukocytosis, elevated D-dimer, hyponatremia, hypochloremia and elevated COVID-19 markers with elevated BNP. CTA chest showed no pulmonary embolism. Patient was admitted to the hospitalist service as a COVID-19 PUI and started on antibiotics and Decadron with consult to infectious disease. 03/09: The patient was seen and evaluated today, and he was found to be hemodynamically stable. The patient is currently on BiPAP for possible COVID-19 pneumonia. He was started on Lovenox 1mg/kg for DVT ppx in the setting of d- dimer > 10,000. Infectious Disease was consulted. The patient is pending a TTE. 03/10: No acute events overnight, patient was intubated in the afternoon transferred to ICU 03/11: Patient started on Lantus, free water flushes increased, propofol drip resumed and oral antihypertensive added. 03/12: lantus increased, k at 5, will monitor. I updated his family and his stated that he is not vaccinated. He does have HTN and she will call the RN to update home medications. She did say he takes bystolic and amlopine. She in quired about ventilator and lab work. She had no further questions. 03/13: KVNG overnight. Patient remains hyperglycemic, basal insulin adjusted and increased to Q12hrs. Patient is overall net positive since admit X1 dose of IV lasix, repeat BMP this afternoon. 03/14: Failed SAT this am due to increase agitation, tachycardia and hypertension. Remains on propofol and fentanyl gtt. Hyperkalemia treated with PO kayaxalate. Patient responded to IV lasix yesterday additional dose again today for a net negative balance. Repeat BMP this afternoon. Insulin adjusted for hyperglycemia. 03/15: Remains encephalopathic, not following commansd. Orders placed for CT head/Brain and Neuro consulted. Rectal bleeding subsided, most likely due to hemorrhoids. H&H is stable will continue to monitor. Kayaxexalate for high K, repeat labs 4 to 6hrs post treatment. 03/16: Still agiated this am, CT head with no acute Abn. CXR and ABG noted- evolving pna and worsening hypoxia, now with low grade fevers. Sputum culture ordered, IV Abx added, ID on cosult. 03/17: This am ABG noted, hypoxia improved. Continue to wean FiO2 as tolerated. Still with low grade fevers, on IV Abx per ID. Still with periods of confusion despite sedation, seroquel increased. F/u CXR in the am 03/18: still very agitated especially when off sedation, with hypertension and tachycardia. Continue sedation for RASS -2, PRN antihypertensive for SPB greater than 160. This febrile this am, continue current IV abx per ID 03/19: Patient afebrile overnight, continue IV Abx per ID. ABG also improved this am, continue to wean FIO2 as tolerated. PRN antihypertensive for hypertension. 03/20: Hyperkalemia treated with Kayexalate, Good discontinued, vancomycin and cefepime stopped started Bactrim by ID. Steroid taper started. 03/21: BB started for hypertension, Seroquel increased for agitation and Librium started no acute events reported overnight. CCM made vent changes 03/22: Adjustment to anxiolytics, respiratory rate on ventilator per CCM. Patient noted to have bleeding hemorrhoids with clot, requested RN to remove bowel management system and will order Preparation H. 03/23: Given no confirmed DVT or PE (only superficial thrombus noted on Dopplers) therapeutic Lovenox changed to prophylactic Lovenox. Started on doxazosin to help with retention. Consulted surgery for tracheostomy and propofol discontinued. 03/24: Surgery consult completed, patient changed to prophylaxis anticoagulation, started on doxazosin yesterday with plans to remove Good catheter in 48 hours. Patient with slight hypokalemia today and given Kayexalate. No acute events reported overnight. 03/25: No acute events reported overnight. Patient remains on fentanyl drip and on CPAP trial this morning. 03/26: no acute events reported overnight. placed on CPAP this AM, remains on fent/librium. scheduled for trach/peg this week. 03/27: Hypoglycemic this am, will decreased lantus to Qhs. Plan for possible Trach and Peg by Gen Surg this am. Case management to arrange possible LTAC placement 03/28: KVNG overnight. Tolerating PST this am. Plan for trach and PEG tomorrow by Gen. Surgery, NPO after midnight. 03/29: No significant changes overnight. Plan for trach and Peg today. Case management to arrange possible LTAC placement 03/30. S/p Trach and PEG, no complications noted. High residual yesterday despite NPO status, reglan added X2 days. Per RN no residual this am, patient is tolerating TF. Continue to advance TF as tolerated. Norvasc added for hypertension. Pitting edema also appreciated, some diuretic might be beneficial, will d/w CCM. Continue daily PST as tolerated. 03/31: Patient remains on the vent still on fentanyl gtt with periods of agitation. PRN analgesia added, plan to start weaning off fentanyl gtt. Febrile this am, completed IV abx course. Will panculture for now, ID is also following. 04/01: Still febrile overnight, cultures result pending, continue IV ABx per ID. Failed PST this am. Continue daily PST and vent wean per [facility]. Case management to arrange possible placement. 04/02: KVNG overnight. Fevers improved overnight, continue to follow cultures data, IV ABx per ID. Continue daily PST and wean vent as per [facility]. 04/03: Given low procalcitonin, unchanged CXR and cultures with no growth cefepime was discontinued by ID. LTAC evaluation ongoing. No acute events reported overnight. 04/04: IV Lasix stopped today, Seroquel taper started, fentanyl drip on hold and steroids stopped. Pressure support trial again today. 04/05: Patient had to be restarted on fentanyl drip therefore Seroquel was increased back to 250 twice daily and he was started on scheduled narcotics and efforts to wean fentanyl drip. Doxazosin was increased to twice daily as patient still had retention issues on doxazosin once a day. Patient was denied LTAC placement. CPAP trial today. 04/06: Right upper extremity ultrasound obtained due to edema which showed DVT. Patient started on heparin drip. Overnight patient had hypoxia, tachypnea, tachycardia, hypotension and FiO2 was increased to 100%. RT titrating as tolerated. Plan was to start T-piece trials today. Patient has been denied LTAC placement. 04/07: BLE dopplar, continue lasix per [facility], CXR in AM. Increase in fio2 overnight d/t desaturation. Wean FiO2 as tolerated. 04/08: Patient remains on 65% FiO2, s/p Lasix for 3 doses, hyperkalemia noted today and medically treated. [facility] plans to consult heme/onc once FiO2 decreased. Remains on heparin gtt 04/09: No acute events reported overnight, possible heme-onc consult on Saturday or Saturday regarding upper extremity DVT, wean FiO2 as tolerated. Repeat CT head on Saturday Hospitalist Physical - Physical exam Narrative exam: General appearance: Present: well-nourished, obese, other (sedated) - EENT Eyes: Present: PERRL, EOM intact ENT: hearing intact, clear oral mucosa - Neck Neck: Present: normal ROM - Respiratory Respiratory effort: normal Respiratory: bilateral: diminished - Cardiovascular Rhythm: regular Heart Sounds: Present: S1 & S2. Absent: systolic murmur, diastolic murmur - Extremities Extremities: no ischemia, pulses intact, pulses symmetrical, No edema, normal temperature, normal color Peripheral Pulses: within normal limits - Abdominal General gastrointestinal: soft, non-tender, non-distended, normal bowel sounds - Integumentary Integumentary: Present: warm, dry - Psychiatric Psychiatric: other - Neurologic Neurologic: other - Allied Health Allied health notes reviewed: nursing, RT - Constitutional Vitals: Temp Pulse Resp BP Pulse Ox 99.0 F 98 H 26 H 167/85 94 04/09/21 08:00 04/09/21 15:00 04/09/21 15:00 04/09/21 15:00 04/09/21 15:00 General appearance: Present: no acute distress, well-nourished, obese, other (On the vent, on sedation) Results - Labs CBC & Chem 7: 04/09/21 04:21 04/09/21 04:21 Labs: Laboratory Last Values WBC 11.4 K/mm3 (4.5-11.0) H 04/09/21 04:21 RBC 2.97 M/mm3 (3.65-5.03) L 04/09/21 04:21 Hgb 8.9 gm/dl (11.8-15.2) L 04/09/21 04:21 Hct 27.8 % (35.5-45.6) L 04/09/21 04:21 MCV 94 fl (84-94) 04/09/21 04:21 MCH 30 pg (28-32) 04/09/21 04:21 MCHC 32 % (32-34) 04/09/21 04:21 RDW 15.8 % (13.2-15.2) H 04/09/21 04:21 Plt Count 485 K/mm3 (140-440) H 04/09/21 04:21 Lymph % (Auto) 7.6 % (13.4-35.0) L 03/31/21 13:30 [place] % (Auto) 9.5 % (0.0-7.3) H 03/31/21 13:30 Eos % (Auto) 4.1 % (0.0-4.3) 03/31/21 13:30 Baso % (Auto) 0.5 % (0.0-1.8) 03/31/21 13:30 Lymph # (Auto) 0.6 K/mm3 (1.2-5.4) L 03/31/21 13:30 [place] # (Auto) 0.7 K/mm3 (0.0-0.8) 03/31/21 13:30 Eos # (Auto) 0.3 K/mm3 (0.0-0.4) 03/31/21 13:30 Baso # (Auto) 0.0 K/mm3 (0.0-0.1) 03/31/21 13:30 Add Manual Diff Complete 03/10/21 04:29 Total Counted 100 03/10/21 04:29 Seg Neutrophils % 78.3 % (40.0-70.0) H 03/31/21 13:30 Seg Neuts % (Manual) 94.0 % (40.0-70.0) H 03/10/21 04:29 Band Neutrophils % 0 % 03/10/21 04:29 Lymphocytes % (Manual) 1.0 % (13.4-35.0) L 03/10/21 04:29 Reactive Lymphs % (Man) 0 % 03/10/21 04:29 Monocytes % (Manual) 5.0 % (0.0-7.3) 03/10/21 04:29 Eosinophils % (Manual) 0 % (0.0-4.3) 03/10/21 04:29 Basophils % (Manual) 0 % (0.0-1.8) 03/10/21 04:29 Metamyelocytes % 0 % 03/10/21 04:29 Myelocytes % 0 % 03/10/21 04:29 Promyelocytes % 0 % 03/10/21 04:29 Blast Cells % 0 % 03/10/21 04:29 Nucleated RBC % 3.0 % (0.0-0.9) H 03/10/21 04:29 Seg Neutrophils # 5.8 K/mm3 (1.8-7.7) 03/31/21 13:30 Seg Neutrophils # Man 19.4 K/mm3 (1.8-7.7) H 03/10/21 04:29 Band Neutrophils # 0.0 K/mm3 03/10/21 04:29 Lymphocytes # (Manual) 0.2 K/mm3 (1.2-5.4) L 03/10/21 04:29 Abs React Lymphs (Man) 0.0 K/mm3 03/10/21 04:29 Monocytes # (Manual) 1.0 K/mm3 (0.0-0.8) H 03/10/21 04:29 Eosinophils # (Manual) 0.0 K/mm3 (0.0-0.4) 03/10/21 04:29 Basophils # (Manual) 0.0 K/mm3 (0.0-0.1) 03/10/21 04:29 Metamyelocytes # 0.0 K/mm3 03/10/21 04:29 Myelocytes # 0.0 K/mm3 03/10/21 04:29 Promyelocytes # 0.0 K/mm3 03/10/21 04:29 Blast Cells # 0.0 K/mm3 03/10/21 04:29 WBC Morphology Not Reportable 03/10/21 04:29 Hypersegmented Neuts Not Reportable 03/10/21 04:29 Hyposegmented Neuts Not Reportable 03/10/21 04:29 Hypogranular Neuts Not Reportable 03/10/21 04:29 Smudge Cells Not Reportable 03/10/21 04:29 Toxic Granulation Not Reportable 03/10/21 04:29 Toxic Vacuolation Not Reportable 03/10/21 04:29 Dohle Bodies Not Reportable 03/10/21 04:29 Pelger-Huet Anomaly Not Reportable 03/10/21 04:29 Mely Rods Not Reportable 03/10/21 04:29 Platelet Estimate Consistent w auto 03/10/21 04:29 Clumped Platelets Not Reportable 03/10/21 04:29 Plt Clumps, EDTA Not Reportable 03/10/21 04:29 Large Platelets Not Reportable 03/10/21 04:29 Giant Platelets Not Reportable 03/10/21 04:29 Platelet Satelliting Not Reportable 03/10/21 04:29 Plt Morphology Comment Not Reportable 03/10/21 04:29 RBC Morphology Normal 03/10/21 04:29 Dimorphic RBCs Not Reportable 03/10/21 04:29 Polychromasia Not Reportable 03/10/21 04:29 Hypochromasia Not Reportable 03/10/21 04:29 Poikilocytosis Not Reportable 03/10/21 04:29 Anisocytosis Not Reportable 03/10/21 04:29 Microcytosis Not Reportable 03/10/21 04:29 Macrocytosis Not Reportable 03/10/21 04:29 Spherocytes Not Reportable 03/10/21 04:29 Pappenheimer Bodies Not Reportable 03/10/21 04:29 Sickle Cells Not Reportable 03/10/21 04:29 Target Cells Not Reportable 03/10/21 04:29 Tear Drop Cells Not Reportable 03/10/21 04:29 Ovalocytes Not Reportable 03/10/21 04:29 Helmet Cells Not Reportable 03/10/21 04:29 [place] Bodies Not Reportable 03/10/21 04:29 [place] Rings Not Reportable 03/10/21 04:29 [place] Cells Not Reportable 03/10/21 04:29 Bite Cells Not Reportable 03/10/21 04:29 Crenated Cell Not Reportable 03/10/21 04:29 Elliptocytes Not Reportable 03/10/21 04:29 Acanthocytes (Spur) Not Reportable 03/10/21 04:29 Rouleaux Not Reportable 03/10/21 04:29 Hemoglobin C Crystals Not Reportable 03/10/21 04:29 Schistocytes Not Reportable 03/10/21 04:29 Malaria parasites Not Reportable 03/10/21 04:29 Shaheen Bodies Not Reportable 03/10/21 04:29 Hem Pathologist Commnt No 03/10/21 04:29 PT 13.6 Sec. (12.2-14.9) 04/06/21 15:36 INR 0.94 (0.87-1.13) 04/06/21 15:36 APTT 37.1 Sec. (24.2-36.6) H 04/06/21 15:36 D-Dimer 1359.12 ng/mlDDU (0-234) H 03/17/21 04:40 Heparin Anti-Xa Level 0.68 U.I./ml (0.3-0.7) 04/09/21 04:21 ABG pH 7.341 pH Units (7.350-7.450) L 04/06/21 11:50 POC ABG pCO2 57.4 mmHg (32.0-48.0) H 04/06/21 04:49 ABG pCO2 73.5 mm Hg 04/06/21 11:50 POC ABG pO2 55.1 mmHg (83-108) L 04/06/21 04:49 ABG pO2 108.9 mm Hg (80.0-90.0) H 04/06/21 11:50 POC ABG HCO3 36.2 04/06/21 04:49 ABG HCO3 38.9 mmol/L (20.0-26.0) H 04/06/21 11:50 ABG O2 Saturation 97.4 % (95.0-99.0) 04/06/21 11:50 ABG O2 Content 15.6 (0.0-44) 04/06/21 11:50 POC ABG Base Excess 10.0 04/06/21 04:49 ABG Base Excess 10.6 mmol/L (-2.0-3.0) H 04/06/21 11:50 ABG Hemoglobin 11.5 gm/dl (14.0-18.0) L 04/06/21 11:50 ABG Oxyhemoglobin 87.5 (94-98) L 04/06/21 04:49 ABG Carboxyhemoglobin 1.5 % (0.0-5.0) 04/06/21 11:50 ABG Methemoglobin 0.7 % (0.0-1.5) 04/06/21 11:50 ABG Sodium 134.2 mmol/L (136.0-145.0) L 03/12/21 21:54 ABG Potassium 4.9 mmol/L (3.40-4.50) H 03/12/21 21:54 ABG Chloride 99.0 mmol/L (98-107) 03/12/21 21:54 ABG Glucose 306 mg/dL (65-95) H 03/12/21 21:54 Oxyhemoglobin 95.3 % (95.0-99.0) 04/06/21 11:50 Carboxyhemoglobin 0.8 (0.5-1.5) 04/06/21 04:49 FiO2 70 % 04/06/21 11:50 FiO2 % 40.0 04/06/21 04:49 Sodium 141 mmol/L (137-145) 04/09/21 04:21 Potassium 4.5 mmol/L (3.6-5.0) 04/09/21 04:21 Chloride 97.1 mmol/L (98-107) L 04/09/21 04:21 Carbon Dioxide 40 mmol/L (22-30) H 04/09/21 04:21 Anion Gap 8 mmol/L 04/09/21 04:21 BUN 21 mg/dL (9-20) H 04/09/21 04:21 Creatinine 0.5 mg/dL (0.8-1.3) L 04/09/21 04:21 Estimated GFR > 60 ml/min 04/09/21 04:21 BUN/Creatinine Ratio 42 % 04/09/21 04:21 Glucose 149 mg/dL (75-100) H 04/09/21 04:21 POC Glucose 190 mg/dL (70-105) H 04/09/21 11:55 Lactic Acid 1.90 mmol/L (0.7-2.0) 03/08/21 23:51 Calcium 9.1 mg/dL (8.4-10.2) 04/09/21 04:21 Phosphorus 1.90 mg/dL (2.5-4.5) L D 04/09/21 04:21 Magnesium 2.30 mg/dL (1.7-2.3) 04/09/21 04:21 Ferritin 976.4 ng/mL (30.0-300.0) H 03/15/21 04:00 Total Bilirubin 0.20 mg/dL (0.1-1.2) 03/12/21 08:03 AST 10 units/L (5-40) 03/12/21 08:03 ALT 16 units/L (7-56) 03/12/21 08:03 Alkaline Phosphatase 77 units/L (35-129) 03/12/21 08:03 Lactate Dehydrogenase 630 units/L (91-180) H 03/15/21 06:06 C-Reactive Protein 0.40 mg/dL (0.00-1.30) 03/17/21 04:40 NT-Pro-B Natriuret Pep 1053 pg/mL (0-900) H 03/08/21 20:24 Total Protein 6.0 g/dL (6.3-8.2) L 03/12/21 08:03 Albumin 2.9 g/dL (3.9-5) L 03/12/21 08:03 Albumin/Globulin Ratio 0.9 % 03/12/21 08:03 Triglycerides 305 mg/dL (2-149) H 03/22/21 07:26 Procalcitonin 0.17 ng/mL (<0.15) 04/01/21 07:16 Arterial Blood Glucose 306 mg/dL (65-95) H 03/12/21 21:54 Arterial Blood Ionized Calcium 5.0 mg/dL (4.6-5.3) 03/12/21 21:54 Urine Color Yellow (Yellow) 03/09/21 04:10 Urine Turbidity Slightly-cloudy (Clear) 03/09/21 04:10 Urine pH 5.0 (5.0-7.0) 03/09/21 04:10 Ur Specific [place] 1.041 (1.003-1.030) H 03/09/21 04:10 Urine Protein 100 mg/dl mg/dL (Negative) 03/09/21 04:10 Urine Glucose (UA) Neg mg/dL (Negative) 03/09/21 04:10 Urine Ketones Neg mg/dL (Negative) 03/09/21 04:10 Urine Blood Mod (Negative) 03/09/21 04:10 Urine Nitrite Neg (Negative) 03/09/21 04:10 Urine Bilirubin Neg (Negative) 03/09/21 04:10 Urine Urobilinogen 2.0 mg/dL (<2.0) 03/09/21 04:10 Ur Leukocyte Esterase Neg (Negative) 03/09/21 04:10 Urine WBC (Auto) 4.0 /HPF (0.0-6.0) 03/09/21 04:10 Urine RBC (Auto) 1.0 /HPF (0.0-6.0) 03/09/21 04:10 Urine Bacteria (Auto) 1+ /HPF (Negative) 03/09/21 04:10 Urine Mucus Few /HPF 03/09/21 04:10 Coronavirus (PCR) Positive (Negative) A 03/09/21 08:00 Miscellaneous Test Flexitest 1 03/16/21 13:14 Good/IV: Voiding Method Indwelling Catheter Active Medications - Current Medications Current Medications: Generic Name Dose Route Start Last Admin Trade Name Freq PRN Reason Stop Dose Admin Acetaminophen 650 mg 03/09/21 01:26 04/07/21 21:40 Acetaminophen 325 Mg Tab PO 650 mg Q4H PRN Administration Pain MILD(1-3)/Fever >100.5/RAYO Albuterol 2.5 mg 03/09/21 01:26 03/18/21 21:06 Albuterol 2.5 Mg/3 Ml Nebu IH 2.5 mg Q4HRT PRN Administration Shortness Of Breath Amlodipine Besylate 5 mg 03/30/21 10:00 04/09/21 09:10 Amlodipine 5 Mg Tab PO 5 mg QDAY BLANCA Administration Arformoterol Tartrate 15 mcg 03/11/21 20:00 04/09/21 08:30 Arformoterol 15 Mcg/2 Ml Nebu IH 15 mcg Q12HRT BLANCA Administration Bisacodyl 10 mg 03/26/21 13:43 03/26/21 13:51 Bisacodyl 10 Mg Rect Supp TN 10 mg QDAY PRN Administration Constipation Budesonide 0.5 mg 04/06/21 20:00 04/08/21 19:56 Budesonide 0.5 Mg/2 Ml Nebu IH 0.5 mg Q12HRT BLANCA Administration Budesonide 0.25 mg 04/09/21 09:00 04/09/21 08:30 Budesonide 0.25 Mg/2 Ml Nebu IH 0.25 mg Q12HRT BLANCA Administration Chlordiazepoxide HCl 75 mg 03/22/21 18:00 04/09/21 12:38 Chlordiazepoxide 25 Mg Cap PO 75 mg Q6HR BLANCA Administration Dextrose 0 ml 03/20/21 10:52 Dextrose 10% *Hypoglycemia IV PRN PRN Hypoglycemia Doxazosin Mesylate 1 mg 04/05/21 22:00 04/09/21 09:11 Doxazosin 1 Mg Tab PO 1 mg BID BLANCA Administration Famotidine 20 mg 03/12/21 22:00 04/09/21 09:10 Famotidine 20 Mg Tab FEEDTUBE 20 mg BID BLANCA Administration Fentanyl 1 applic 03/31/21 15:00 04/09/21 09:50 Fentanyl 75 Mcg/Hr Patch 72hr TD 1 applic Q3D BLANCA Administration Fentanyl 50 mcg 04/04/21 17:00 04/08/21 18:11 Fentanyl 100 Mcg/2 Ml Inj IV 50 mcg Q10MIN PRN Administration ANALGESIA Heparin Sodium (Porcine) 4,900 unit 04/07/21 01:47 04/07/21 20:37 Heparin 10,000 Units/10 Ml Vial 40 unit/kg (4900 unit) 4,900 unit IV Administration Q6H PRN Anti-Xa Assay < 0.1 units/ml Hydralazine HCl 50 mg 03/23/21 14:26 04/09/21 13:38 Hydralazine 25 Mg Tab PO 50 mg Q8HR [facility] Administration Hydrophilic Ointment 1 applic 03/10/21 15:39 Lip Therapy Vaseline TP Q2HR PRN Dry Lips Fentanyl Citrate 2,000 mcg in 100 mls @ 6.1 mls/hr 04/04/21 17:00 04/09/21 04:19 Fentanyl Drip Premix IV 1 mcg/kg/hr TITR BLANCA 6.1 mls/hr Administration Protocol 1 MCG/KG/HR Heparin Sodium/Sodium Chloride 25,000 unit in 500 mls @ 30 mls/hr 04/06/21 16:00 04/09/21 13:38 Heparin/ 0.45% Nacl-25,000 Unit/500 Ml IV 2,550 units/hr TITR BLANCA 51 mls/hr Administration Protocol 1,500 UNITS/HR Sodium Phosphate 30 mmol/ 510 mls @ 102 mls/hr 04/09/21 11:30 04/09/21 12:30 Sodium Chloride IV 04/09/21 16:29 102 mls/hr ONCE ONE Administration Insulin Glargine 18 units 04/07/21 22:00 04/08/21 21:04 Insulin Glargine 100 Units/Ml SUB-Q 18 units QHS [facility] Administration Insulin Human Lispro 0 unit 03/11/21 18:00 04/09/21 12:37 Insulin Lispro 100 Unit/Ml SUB-Q 3 unit Q6HR [facility] Administration Protocol Metoprolol Tartrate 12.5 mg 03/21/21 22:00 04/09/21 09:10 Metoprolol Tartrate 25 Mg Tab PO 12.5 mg BID BLANCA Administration Midazolam HCl 2 mg 03/15/21 08:49 04/06/21 04:04 Midazolam 2 Mg/2 Ml Inj IV 2 mg Q2H PRN Administration VENT SYNCHRONY Multi-Ingred Cream/Lotion/Oil/Oint 1 applic 03/10/21 15:39 Mineral Oil/Petrolatum, White Ophth Oint 3.5 Gm OU Q4HR PRN Dry Eye(s) Ondansetron HCl 4 mg 03/09/21 01:26 Ondansetron 4 Mg/2 Ml Inj IV Q8H PRN Nausea And Vomiting Oxycodone HCl 5 mg 04/05/21 14:00 04/09/21 13:38 Oxycodone 5 Mg Tab PO 5 mg TID BLANCA Administration Phenyleph/Shark Oil/Min Oil/Petrol 1 applic 03/22/21 17:35 04/06/21 04:04 Pe/Mo/Pet,Wh 10 Applic/28 Gm Tube TN 1 applic Q6HR PRN Administration Hemorrhoids Polyethylene Glycol 17 gm 04/02/21 10:00 04/09/21 09:10 Polyethylene Glycol 3350 17 Gm Powder FEEDTUBE 17 gm QDAY BLANCA Administration Quetiapine Fumarate 200 mg 04/04/21 22:00 04/09/21 09:10 Quetiapine 200 Mg Tab PO 200 mg BID BLANCA Administration Quetiapine Fumarate 50 mg 04/05/21 14:00 04/09/21 09:10 Quetiapine 25 Mg Tab PO 50 mg BID BLANCA Administration Senna/Docusate Sodium 2 tab 04/02/21 10:00 04/09/21 09:11 Sennosides/Docusate Sodium 8.6/50 Mg Tab FEEDTUBE 2 tab BID BLANCA Administration Sodium Chloride 10 ml 03/09/21 10:00 04/09/21 09:12 Sodium Chloride 0.9% 10 Ml Flush Syringe IV 10 ml BID BLANCA Administration Sodium Chloride 10 ml 03/09/21 01:26 04/02/21 21:13 Sodium Chloride 0.9% 10 Ml Flush Syringe IV 10 ml PRN PRN Administration LINE FLUSH Sodium Chloride 10 ml 03/20/21 09:48 Sodium Chloride 0.9% 50 Ml Ivpb IV PRN PRN FLUSH Nutrition/Malnutrition Assess - Dietary Evaluation Nutrition/Malnutrition Findings: Nutrition Notes Start: 03/09/21 08:49 Freq: Status: Active Protocol: Document 04/07/21 14:55 BRIAN (Rec: 04/07/21 14:58 BRIAN [id number]) Nutrition Notes Initial or Follow up Reassessment Current Diagnosis Diabetes,Sepsis,Hypertension, Respiratory Failure Other Pertinent Diagnosis COVID-19, Bilateral Pneumonia. Current Diet TF-Glucerna 1.2 at 70 ml/hr Labs/Tests BG 216 Pertinent Medications Heparin gtt, Miralax, Senokot Height 5 ft 11 in Weight 122 kg [place] Body Weight (kg) 78.18 BMI 37.5 Weight Status Obese Subjective/Other Information Pt remains on vent support. Per RN, pt tolerating TF at goal rate. Percent of energy/protein needs met: 82% energy 78% pro Burn Absent Trauma Absent #1 Nutrition Diagnosis Inadequate oral intake Diagnosis Progress(for reassessment Continues documentation) Is patient on ventilator? Yes Is Patient Ambulatory and/or Out of Bed No REE-([facility]-confined to bed) 2449.140 Calculation Used for Recommendations 70-80% energy needs Additional Notes Energy needs: 2890-6279 kcal/ day Pro needs 1.3g/kg adjBW: 130g/ day Fluid needs 1ml/kcal Nutrition Intervention Nutrition Support: Continue Glucerna 1.2 at 70ml/ hr with 110ml water flush q4h. Kcal 2,016 Protein (gm) 101 Carbohydrates (gm) 192 Fat (gm) 101 Fluid (mL) 1,352 Fiber (gm) 27 Goal #1 TF tolerance Goal #2 TF to meet at least 75% energy and pro needs Follow-Up By: 04/14/21 Additional Comments F/U: stable TF, vent status, wt <RAFAEL DOMINGUEZ - Last Filed: 04/10/21 12:08> Assessment and Plan Assessment and plan: I saw and evaluated the patient. Discussed with the nurse practitioner and agree with their findings and plan as documented in this note. Hospitalist Physical - Constitutional Vitals: Temp Pulse Resp BP Pulse Ox 98 F 95 H 32 H 141/72 93 04/10/21 08:00 04/10/21 10:11 04/10/21 10:00 04/10/21 10:11 04/10/21 10:00 Results - Labs CBC & Chem 7: 04/09/21 04:21 04/09/21 04:21 Labs: Laboratory Last Values WBC 11.4 K/mm3 (4.5-11.0) H 04/09/21 04:21 RBC 2.97 M/mm3 (3.65-5.03) L 04/09/21 04:21 Hgb 8.9 gm/dl (11.8-15.2) L 04/09/21 04:21 Hct 27.8 % (35.5-45.6) L 04/09/21 04:21 MCV 94 fl (84-94) 04/09/21 04:21 MCH 30 pg (28-32) 04/09/21 04:21 MCHC 32 % (32-34) 04/09/21 04:21 RDW 15.8 % (13.2-15.2) H 04/09/21 04:21 Plt Count 485 K/mm3 (140-440) H 04/09/21 04:21 Lymph % (Auto) 7.6 % (13.4-35.0) L 03/31/21 13:30 [place] % (Auto) 9.5 % (0.0-7.3) H 03/31/21 13:30 Eos % (Auto) 4.1 % (0.0-4.3) 03/31/21 13:30 Baso % (Auto) 0.5 % (0.0-1.8) 03/31/21 13:30 Lymph # (Auto) 0.6 K/mm3 (1.2-5.4) L 03/31/21 13:30 [place] # (Auto) 0.7 K/mm3 (0.0-0.8) 03/31/21 13:30 Eos # (Auto) 0.3 K/mm3 (0.0-0.4) 03/31/21 13:30 Baso # (Auto) 0.0 K/mm3 (0.0-0.1) 03/31/21 13:30 Add Manual Diff Complete 03/10/21 04:29 Total Counted 100 03/10/21 04:29 Seg Neutrophils % 78.3 % (40.0-70.0) H 03/31/21 13:30 Seg Neuts % (Manual) 94.0 % (40.0-70.0) H 03/10/21 04:29 Band Neutrophils % 0 % 03/10/21 04:29 Lymphocytes % (Manual) 1.0 % (13.4-35.0) L 03/10/21 04:29 Reactive Lymphs % (Man) 0 % 03/10/21 04:29 Monocytes % (Manual) 5.0 % (0.0-7.3) 03/10/21 04:29 Eosinophils % (Manual) 0 % (0.0-4.3) 03/10/21 04:29 Basophils % (Manual) 0 % (0.0-1.8) 03/10/21 04:29 Metamyelocytes % 0 % 03/10/21 04:29 Myelocytes % 0 % 03/10/21 04:29 Promyelocytes % 0 % 03/10/21 04:29 Blast Cells % 0 % 03/10/21 04:29 Nucleated RBC % 3.0 % (0.0-0.9) H 03/10/21 04:29 Seg Neutrophils # 5.8 K/mm3 (1.8-7.7) 03/31/21 13:30 Seg Neutrophils # Man 19.4 K/mm3 (1.8-7.7) H 03/10/21 04:29 Band Neutrophils # 0.0 K/mm3 03/10/21 04:29 Lymphocytes # (Manual) 0.2 K/mm3 (1.2-5.4) L 03/10/21 04:29 Abs React Lymphs (Man) 0.0 K/mm3 03/10/21 04:29 Monocytes # (Manual) 1.0 K/mm3 (0.0-0.8) H 03/10/21 04:29 Eosinophils # (Manual) 0.0 K/mm3 (0.0-0.4) 03/10/21 04:29 Basophils # (Manual) 0.0 K/mm3 (0.0-0.1) 03/10/21 04:29 Metamyelocytes # 0.0 K/mm3 03/10/21 04:29 Myelocytes # 0.0 K/mm3 03/10/21 04:29 Promyelocytes # 0.0 K/mm3 03/10/21 04:29 Blast Cells # 0.0 K/mm3 03/10/21 04:29 WBC Morphology Not Reportable 03/10/21 04:29 Hypersegmented Neuts Not Reportable 03/10/21 04:29 Hyposegmented Neuts Not Reportable 03/10/21 04:29 Hypogranular Neuts Not Reportable 03/10/21 04:29 Smudge Cells Not Reportable 03/10/21 04:29 Toxic Granulation Not Reportable 03/10/21 04:29 Toxic Vacuolation Not Reportable 03/10/21 04:29 Dohle Bodies Not Reportable 03/10/21 04:29 Pelger-Huet Anomaly Not Reportable 03/10/21 04:29 Mely Rods Not Reportable 03/10/21 04:29 Platelet Estimate Consistent w auto 03/10/21 04:29 Clumped Platelets Not Reportable 03/10/21 04:29 Plt Clumps, EDTA Not Reportable 03/10/21 04:29 Large Platelets Not Reportable 03/10/21 04:29 Giant Platelets Not Reportable 03/10/21 04:29 Platelet Satelliting Not Reportable 03/10/21 04:29 Plt Morphology Comment Not Reportable 03/10/21 04:29 RBC Morphology Normal 03/10/21 04:29 Dimorphic RBCs Not Reportable 03/10/21 04:29 Polychromasia Not Reportable 03/10/21 04:29 Hypochromasia Not Reportable 03/10/21 04:29 Poikilocytosis Not Reportable 03/10/21 04:29 Anisocytosis Not Reportable 03/10/21 04:29 Microcytosis Not Reportable 03/10/21 04:29 Macrocytosis Not Reportable 03/10/21 04:29 Spherocytes Not Reportable 03/10/21 04:29 Pappenheimer Bodies Not Reportable 03/10/21 04:29 Sickle Cells Not Reportable 03/10/21 04:29 Target Cells Not Reportable 03/10/21 04:29 Tear Drop Cells Not Reportable 03/10/21 04:29 Ovalocytes Not Reportable 03/10/21 04:29 Helmet Cells Not Reportable 03/10/21 04:29 [place] Bodies Not Reportable 03/10/21 04:29 [place] Rings Not Reportable 03/10/21 04:29 Shama Cells Not Reportable 03/10/21 04:29 Bite Cells Not Reportable 03/10/21 04:29 Crenated Cell Not Reportable 03/10/21 04:29 Elliptocytes Not Reportable 03/10/21 04:29 Acanthocytes (Spur) Not Reportable 03/10/21 04:29 Rouleaux Not Reportable 03/10/21 04:29 Hemoglobin C Crystals Not Reportable 03/10/21 04:29 Schistocytes Not Reportable 03/10/21 04:29 Malaria parasites Not Reportable 03/10/21 04:29 Shaheen Bodies Not Reportable 03/10/21 04:29 Hem Pathologist Commnt No 03/10/21 04:29 PT 13.6 Sec. (12.2-14.9) 04/06/21 15:36 INR 0.94 (0.87-1.13) 04/06/21 15:36 APTT 37.1 Sec. (24.2-36.6) H 04/06/21 15:36 D-Dimer 1359.12 ng/mlDDU (0-234) H 03/17/21 04:40 Heparin Anti-Xa Level 0.68 U.I./ml (0.3-0.7) 04/09/21 04:21 ABG pH 7.424 pH Units (7.350-7.450) 04/09/21 20:10 POC ABG pCO2 57.4 mmHg (32.0-48.0) H 04/06/21 04:49 ABG pCO2 64.5 mm Hg 04/09/21 20:10 POC ABG pO2 55.1 mmHg (83-108) L 04/06/21 04:49 ABG pO2 68.1 mm Hg (80.0-90.0) L 04/09/21 20:10 POC ABG HCO3 36.2 04/06/21 04:49 ABG HCO3 41.3 mmol/L (20.0-26.0) H 04/09/21 20:10 ABG O2 Saturation 97.1 % (95.0-99.0) 04/09/21 20:10 ABG O2 Content 13.6 (0.0-44) 04/09/21 20:10 POC ABG Base Excess 10.0 04/06/21 04:49 ABG Base Excess 14.6 mmol/L (-2.0-3.0) H 04/09/21 20:10 ABG Hemoglobin 10.2 gm/dl (14.0-18.0) L 04/09/21 20:10 ABG Oxyhemoglobin 87.5 (94-98) L 04/06/21 04:49 ABG Carboxyhemoglobin 2.0 % (0.0-5.0) 04/09/21 20:10 ABG Methemoglobin 0.5 % (0.0-1.5) 04/09/21 20:10 ABG Sodium 134.2 mmol/L (136.0-145.0) L 03/12/21 21:54 ABG Potassium 4.9 mmol/L (3.40-4.50) H 03/12/21 21:54 ABG Chloride 99.0 mmol/L (98-107) 03/12/21 21:54 ABG Glucose 306 mg/dL (65-95) H 03/12/21 21:54 Oxyhemoglobin 94.7 % (95.0-99.0) L 04/09/21 20:10 Carboxyhemoglobin 0.8 (0.5-1.5) 04/06/21 04:49 FiO2 40 % 04/09/21 20:10 FiO2 % 40.0 04/06/21 04:49 Sodium 141 mmol/L (137-145) 04/09/21 04:21 Potassium 4.5 mmol/L (3.6-5.0) 04/09/21 04:21 Chloride 97.1 mmol/L (98-107) L 04/09/21 04:21 Carbon Dioxide 40 mmol/L (22-30) H 04/09/21 04:21 Anion Gap 8 mmol/L 04/09/21 04:21 BUN 21 mg/dL (9-20) H 04/09/21 04:21 Creatinine 0.5 mg/dL (0.8-1.3) L 04/09/21 04:21 Estimated GFR > 60 ml/min 04/09/21 04:21 BUN/Creatinine Ratio 42 % 04/09/21 04:21 Glucose 149 mg/dL (75-100) H 04/09/21 04:21 POC Glucose 150 mg/dL (70-105) H 04/10/21 11:41 Lactic Acid 1.90 mmol/L (0.7-2.0) 03/08/21 23:51 Calcium 9.1 mg/dL (8.4-10.2) 04/09/21 04:21 Phosphorus 1.90 mg/dL (2.5-4.5) L D 04/09/21 04:21 Magnesium 2.30 mg/dL (1.7-2.3) 04/09/21 04:21 Ferritin 976.4 ng/mL (30.0-300.0) H 03/15/21 04:00 Total Bilirubin 0.20 mg/dL (0.1-1.2) 03/12/21 08:03 AST 10 units/L (5-40) 03/12/21 08:03 ALT 16 units/L (7-56) 03/12/21 08:03 Alkaline Phosphatase 77 units/L (35-129) 03/12/21 08:03 Lactate Dehydrogenase 630 units/L (91-180) H 03/15/21 06:06 C-Reactive Protein 0.40 mg/dL (0.00-1.30) 03/17/21 04:40 NT-Pro-B Natriuret Pep 1053 pg/mL (0-900) H 03/08/21 20:24 Total Protein 6.0 g/dL (6.3-8.2) L 03/12/21 08:03 Albumin 2.9 g/dL (3.9-5) L 03/12/21 08:03 Albumin/Globulin Ratio 0.9 % 03/12/21 08:03 Triglycerides 305 mg/dL (2-149) H 03/22/21 07:26 Procalcitonin 0.17 ng/mL (<0.15) 04/01/21 07:16 Arterial Blood Glucose 306 mg/dL (65-95) H 03/12/21 21:54 Arterial Blood Ionized Calcium 5.0 mg/dL (4.6-5.3) 03/12/21 21:54 Urine Color Yellow (Yellow) 03/09/21 04:10 Urine Turbidity Slightly-cloudy (Clear) 03/09/21 04:10 Urine pH 5.0 (5.0-7.0) 03/09/21 04:10 Ur Specific [place] 1.041 (1.003-1.030) H 03/09/21 04:10 Urine Protein 100 mg/dl mg/dL (Negative) 03/09/21 04:10 Urine Glucose (UA) Neg mg/dL (Negative) 03/09/21 04:10 Urine Ketones Neg mg/dL (Negative) 03/09/21 04:10 Urine Blood Mod (Negative) 03/09/21 04:10 Urine Nitrite Neg (Negative) 03/09/21 04:10 Urine Bilirubin Neg (Negative) 03/09/21 04:10 Urine Urobilinogen 2.0 mg/dL (<2.0) 03/09/21 04:10 Ur Leukocyte Esterase Neg (Negative) 03/09/21 04:10 Urine WBC (Auto) 4.0 /HPF (0.0-6.0) 03/09/21 04:10 Urine RBC (Auto) 1.0 /HPF (0.0-6.0) 03/09/21 04:10 Urine Bacteria (Auto) 1+ /HPF (Negative) 03/09/21 04:10 Urine Mucus Few /HPF 03/09/21 04:10 Coronavirus (PCR) Positive (Negative) A 03/09/21 08:00 Miscellaneous Test Flexitest 1 03/16/21 13:14 Good/IV: Voiding Method Indwelling Catheter Active Medications - Current Medications Current Medications: Generic Name Dose Route Start Last Admin Trade Name Freq PRN Reason Stop Dose Admin Acetaminophen 650 mg 03/09/21 01:26 04/07/21 21:40 Acetaminophen 325 Mg Tab PO 650 mg Q4H PRN Administration Pain MILD(1-3)/Fever >100.5/RAYO Albuterol 2.5 mg 03/09/21 01:26 03/18/21 21:06 Albuterol 2.5 Mg/3 Ml Nebu IH 2.5 mg Q4HRT PRN Administration Shortness Of Breath Amlodipine Besylate 5 mg 03/30/21 10:00 04/10/21 10:11 Amlodipine 5 Mg Tab PO 5 mg QDAY BLANCA Administration Arformoterol Tartrate 15 mcg 03/11/21 20:00 04/10/21 08:00 Arformoterol 15 Mcg/2 Ml Nebu IH 15 mcg Q12HRT BLANCA Administration Bisacodyl 10 mg 03/26/21 13:43 03/26/21 13:51 Bisacodyl 10 Mg Rect Supp TN 10 mg QDAY PRN Administration Constipation Budesonide 0.5 mg 04/06/21 20:00 04/10/21 09:01 Budesonide 0.5 Mg/2 Ml Nebu IH 0.5 mg Q12HRT BLANCA Administration Budesonide 0.25 mg 04/09/21 09:00 04/10/21 09:05 Budesonide 0.25 Mg/2 Ml Nebu IH Not Given Q12HRT BLANCA Chlordiazepoxide HCl 75 mg 03/22/21 18:00 04/10/21 05:28 Chlordiazepoxide 25 Mg Cap PO 75 mg Q6HR BLANCA Administration Dextrose 0 ml 03/20/21 10:52 Dextrose 10% *Hypoglycemia IV PRN PRN Hypoglycemia Doxazosin Mesylate 1 mg 04/05/21 22:00 04/10/21 10:11 Doxazosin 1 Mg Tab PO 1 mg BID BLANCA Administration Famotidine 20 mg 03/12/21 22:00 04/10/21 10:11 Famotidine 20 Mg Tab FEEDTUBE 20 mg BID BLANCA Administration Fentanyl 1 applic 03/31/21 15:00 04/09/21 09:50 Fentanyl 75 Mcg/Hr Patch 72hr TD 1 applic Q3D BLANCA Administration Fentanyl 50 mcg 04/04/21 17:00 04/08/21 18:11 Fentanyl 100 Mcg/2 Ml Inj IV 50 mcg Q10MIN PRN Administration ANALGESIA Heparin Sodium (Porcine) 4,900 unit 04/07/21 01:47 04/07/21 20:37 Heparin 10,000 Units/10 Ml Vial 40 unit/kg (4900 unit) 4,900 unit IV Administration Q6H PRN Anti-Xa Assay < 0.1 units/ml Hydralazine HCl 50 mg 03/23/21 14:26 04/10/21 05:29 Hydralazine 25 Mg Tab PO 50 mg Q8HR BLANCA Administration Hydrophilic Ointment 1 applic 03/10/21 15:39 Lip Therapy Vaseline TP Q2HR PRN Dry Lips Fentanyl Citrate 2,000 mcg in 100 mls @ 6.1 mls/hr 04/04/21 17:00 04/10/21 10:22 Fentanyl Drip Premix IV 2 mcg/kg/hr TITR BLANCA 12.2 mls/hr Administration Protocol 1 MCG/KG/HR Heparin Sodium/Sodium Chloride 25,000 unit in 500 mls @ 30 mls/hr 04/06/21 16:00 04/10/21 10:10 Heparin/ 0.45% Nacl-25,000 Unit/500 Ml IV 2,550 units/hr TITR BLANCA 51 mls/hr Administration Protocol 1,500 UNITS/HR Insulin Glargine 18 units 04/07/21 22:00 04/09/21 21:13 Insulin Glargine 100 Units/Ml SUB-Q 18 units QHS BLANCA Administration Insulin Human Lispro 0 unit 03/11/21 18:00 04/10/21 05:31 Insulin Lispro 100 Unit/Ml SUB-Q 3 unit Q6HR BLANCA Administration Protocol Metoprolol Tartrate 12.5 mg 03/21/21 22:00 04/10/21 10:10 Metoprolol Tartrate 25 Mg Tab PO 12.5 mg BID BLANCA Administration Midazolam HCl 2 mg 03/15/21 08:49 04/06/21 04:04 Midazolam 2 Mg/2 Ml Inj IV 2 mg Q2H PRN Administration VENT SYNCHRONY Multi-Ingred Cream/Lotion/Oil/Oint 1 applic 03/10/21 15:39 Mineral Oil/Petrolatum, White Ophth Oint 3.5 Gm OU Q4HR PRN Dry Eye(s) Ondansetron HCl 4 mg 03/09/21 01:26 Ondansetron 4 Mg/2 Ml Inj IV Q8H PRN Nausea And Vomiting Oxycodone HCl 5 mg 04/05/21 14:00 04/10/21 08:31 Oxycodone 5 Mg Tab PO 5 mg TID BLANCA Administration Phenyleph/Shark Oil/Min Oil/Petrol 1 applic 03/22/21 17:35 04/06/21 04:04 Pe/Mo/Pet,Wh 10 Applic/28 Gm Tube TN 1 applic Q6HR PRN Administration Hemorrhoids Polyethylene Glycol 17 gm 04/02/21 10:00 04/10/21 10:12 Polyethylene Glycol 3350 17 Gm Powder FEEDTUBE 17 gm QDAY BLANCA Administration Quetiapine Fumarate 200 mg 04/04/21 22:00 04/10/21 10:10 Quetiapine 200 Mg Tab PO 200 mg BID BLANCA Administration Quetiapine Fumarate 50 mg 04/05/21 14:00 04/10/21 10:10 Quetiapine 25 Mg Tab PO 50 mg BID BLANCA Administration Senna/Docusate Sodium 2 tab 04/02/21 10:00 04/10/21 10:12 Sennosides/Docusate Sodium 8.6/50 Mg Tab FEEDTUBE 2 tab BID BLANCA Administration Sodium Chloride 10 ml 03/09/21 10:00 04/10/21 10:16 Sodium Chloride 0.9% 10 Ml Flush Syringe IV 10 ml BID BLANCA Administration Sodium Chloride 10 ml 03/09/21 01:26 02/06/22 21:13 Sodium Chloride 0.9% 10 Ml Flush Syringe IV 10 ml PRN PRN Administration LINE FLUSH Sodium Chloride 10 ml 03/20/21 09:48 Sodium Chloride 0.9% 50 Ml Ivpb IV PRN PRN FLUSH Nutrition/Malnutrition Assess - Dietary Evaluation Nutrition/Malnutrition Findings: Nutrition Notes Start: 03/09/21 08:49 Freq: Status: Active Protocol: Document 04/07/21 14:55 BRIAN (Rec: 04/07/21 14:58 BRIAN [id number]) Nutrition Notes Initial or Follow up Reassessment Current Diagnosis Diabetes,Sepsis,Hypertension, Respiratory Failure Other Pertinent Diagnosis COVID-19, Bilateral Pneumonia. Current Diet TF-Glucerna 1.2 at 70 ml/hr Labs/Tests BG 216 Pertinent Medications Heparin gtt, Miralax, Senokot Height 5 ft 11 in Weight 122 kg [place] Body Weight (kg) 78.18 BMI 37.5 Weight Status Obese Subjective/Other Information Pt remains on vent support. Per RN, pt tolerating TF at goal rate. Percent of energy/protein needs met: 82% energy 78% pro Burn Absent Trauma Absent #1 Nutrition Diagnosis Inadequate oral intake Diagnosis Progress(for reassessment Continues documentation) Is patient on ventilator? Yes Is Patient Ambulatory and/or Out of Bed No REE-([facility]-confined to bed) 6249.140 Calculation Used for Recommendations 70-80% energy needs Additional Notes Energy needs: 3017-2153 kcal/ day Pro needs 1.3g/kg adjBW: 130g/ day Fluid needs 1ml/kcal Nutrition Intervention Nutrition Support: Continue Glucerna 1.2 at 70ml/ hr with 110ml water flush q4h. Kcal 2,016 Protein (gm) 101 Carbohydrates (gm) 192 Fat (gm) 101 Fluid (mL) 1,352 Fiber (gm) 27 Goal #1 TF tolerance Goal #2 TF to meet at least 75% energy and pro needs Follow-Up By: 04/14/21 Additional Comments F/U: stable TF, vent status, wt
[2021-04-09] MEDS: BUDESONIDE 0.5 MG/2 ML NEBU IH SCH ×2 (19:46)
[2021-04-09 20:23] LABS: ABG Base Excess 14.6 mmol/L (-2.0-3.0); ABG HCO3 41.3 mmol/L (20.0-26.0); ABG Methemoglobin 0.5 % (0.0-1.5); ABG Oxygen Saturation 97.1 % (95.0-99.0); ABG PCO2 64.5 mm Hg; ABG PH 7.424 pH Units (7.350-7.450); ABG PO2 68.1 mm Hg (80.0-90.0)
[2021-04-09] MEDS: INSULIN GLARGINE 100 UNITS/ML SUB-Q SCH (21:13)
[2021-04-10] MEDS: chlordiazePOXIDE 25 MG CAP PO SCH ×4 (00:27→18:06)
[2021-04-10] MEDS: INSULIN LISPRO 100 UNIT/ML SUB-Q SCH ×4 (00:27→18:06)
[2021-04-10] MEDS: HEPARIN/ 0.45% NACL DRIP 25,000 UNIT/500 ML BAG IV SCH ×3 (00:28→21:05)
[2021-04-10] MEDS: fentaNYL DRIP Premix 2,000 MCG/100 ML BAG IV SCH ×3 (02:37→18:06)
[2021-04-10] MEDS: hydrALAZINE 25 MG TAB PO SCH ×3 (05:29→21:06)
[2021-04-10] MEDS: BUDESONIDE 0.25 MG/2 ML NEBU IH SCH ×3 (06:13→20:01)
[2021-04-10] MEDS: BUDESONIDE 0.5 MG/2 ML NEBU IH SCH ×3 (08:00→20:00)
[2021-04-10] MEDS: ARFORMOTEROL 15 MCG/2 ML NEBU IH SCH ×2 (08:00→20:00)
[2021-04-10] MEDS: oxyCODONE 5 MG TAB PO SCH ×3 (08:31→21:11)
[2021-04-10] MEDS: METOPROLOL TARTRATE 25 MG TAB PO SCH ×2 (10:10→21:06)
[2021-04-10] MEDS: QUEtiapine 200 MG TAB PO SCH ×2 (10:10→21:11)
[2021-04-10] MEDS: QUEtiapine 25 MG TAB PO SCH ×2 (10:10→21:11)
[2021-04-10] MEDS: amLODIPine 5 MG TAB PO SCH (10:11)
[2021-04-10] MEDS: FAMOTIDINE 20 MG TAB FEEDTUBE SCH ×2 (10:11→21:07)
[2021-04-10] MEDS: DOXAZOSIN 1 MG TAB PO SCH ×2 (10:11→21:07)
[2021-04-10] MEDS: POLYETHYLENE GLYCOL 3350 17 GM POWDER FEEDTUBE SCH (10:12)
[2021-04-10] MEDS: SENNOSIDES/DOCUSATE SODIUM 8.6/50 MG TAB FEEDTUBE SCH ×2 (10:12→21:09)
--- NOTE | 2021-04-10 10:38 | Progress Note ---
Assessment and Plan Assessment and plan: This is a 61-year-old male with past medical history of HTN and DM admitted for sepsis and acute hypoxic respiratory failure 2/2 COVID pneumonia requiring ventilatory support. Hospital Course to Date: 03/09: The patient was seen and evaluated today, and he was found to be hemo dynamically stable. The patient is currently on BiPAP for possible COVID-19 pneumonia. He was started on Lovenox 1mg/kg for DVT ppx in the setting of d- dimer > 10,000. Infectious Disease was consulted. The patient is pending a TTE. 03/10: No acute events overnight, patient was intubated in the afternoon transferred to ICU 03/11: Patient started on Lantus, free water flushes increased, propofol drip resumed and oral antihypertensive added. 03/12: lantus increased, k at 5, will monitor. I updated his family and his stated that he is not vaccinated. He does have HTN and she will call the RN to update home medications. She did say he takes bystolic and amlopine. She inquired about ventilator and lab work. She had no further questions. 03/13: KVNG overnight. Patient remains hyperglycemic, basal insulin adjusted and increased to Q12hrs. Patient is overall net positive since admit X1 dose of IV lasix, repeat BMP this afternoon. 03/14: Failed SAT this am due to increase agitation, tachycardia and hypertension. Remains on propofol and fentanyl gtt. Hyperkalemia treated with PO kayaxalate. Patient responded to IV lasix yesterday additional dose again today for a net negative balance. Repeat BMP this afternoon. Insulin adjusted for hyperglycemia. 03/15: Remains encephalopathic, not following commansd. Orders placed for CT head/Brain and Neuro consulted. Rectal bleeding subsided, most likely due to hemorrhoids. H&H is stable will continue to monitor. Kayaxexalate for high K, repeat labs 4 to 6hrs post treatment. 03/16: Still agiated this am, CT head with no acute Abn. CXR and ABG noted- evolving pna and worsening hypoxia, now with low grade fevers. Sputum culture ordered, IV Abx added, ID on cosult. 03/17: This am ABG noted, hypoxia improved. Continue to wean FiO2 as tolerated. Still with low grade fevers, on IV Abx per ID. Still with periods of confusion despite sedation, seroquel increased. F/u CXR in the am 03/18: still very agitated especially when off sedation, with hypertension and tachycardia. Continue sedation for RASS -2, PRN antihypertensive for SPB greater than 160. This febrile this am, continue current IV abx per ID 03/19: Patient afebrile overnight, continue IV Abx per ID. ABG also improved this am, continue to wean FIO2 as tolerated. PRN antihypertensive for hypertension. 03/20: Hyperkalemia treated with Kayexalate, Good discontinued, vancomycin and cefepime stopped started Bactrim by ID. Steroid taper started. 03/21: BB started for hypertension, Seroquel increased for agitation and Librium started no acute events reported overnight. [facility] made vent changes 03/22: Adjustment to anxiolytics, respiratory rate on ventilator per [facility]. Patient noted to have bleeding hemorrhoids with clot, requested RN to remove bowel management system and will order Preparation H. 03/23: Given no confirmed DVT or PE (only superficial thrombus noted on Dopplers) therapeutic Lovenox changed to prophylactic Lovenox. Started on doxazosin to help with retention. Consulted surgery for tracheostomy and propofol discontinued. 03/24: Surgery consult completed, patient changed to prophylaxis anticoagulation, started on doxazosin yesterday with plans to remove Good catheter in 48 hours. Patient with slight hypokalemia today and given Kayexalate. No acute events reported overnight. 03/25: No acute events reported overnight. Patient remains on fentanyl drip and on CPAP trial this morning. 03/26: no acute events reported overnight. placed on CPAP this AM, remains on fent/librium. scheduled for trach/peg this week. 03/27: Hypoglycemic this am, will decreased lantus to Qhs. Plan for possible Trach and Peg by Gen Surg this am. Case management to arrange possible LTAC placement 03/28: KVNG overnight. Tolerating PST this am. Plan for trach and PEG tomorrow by Gen. Surgery, NPO after midnight. 03/29: No significant changes overnight. Plan for trach and Peg today. Case management to arrange possible LTAC placement 03/30. S/p Trach and PEG, no complications noted. High residual yesterday despite NPO status, reglan added X2 days. Per RN no residual this am, patient is tolerating TF. Continue to advance TF as tolerated. Norvasc added for hypertension. Pitting edema also appreciated, some diuretic might be beneficial, will d/w CCM. Continue daily PST as tolerated. 03/31: Patient remains on the vent still on fentanyl gtt with periods of agitation. PRN analgesia added, plan to start weaning off fentanyl gtt. Febrile this am, completed IV abx course. Will panculture for now, ID is also following. 04/01: Still febrile overnight, cultures result pending, continue IV ABx per ID. Failed PST this am. Continue daily PST and vent wean per [facility]. Case management to arrange possible placement. 04/02: KVNG overnight. Fevers improved overnight, continue to follow cultures data, IV ABx per ID. Continue daily PST and wean vent as per [facility].\ 04/03: Given low procalcitonin, unchanged CXR and cultures with no growth cefepime was discontinued by ID. LTAC evaluation ongoing. No acute events reported overnight. 04/04: IV Lasix stopped today, Seroquel taper started, fentanyl drip on hold and steroids stopped. Pressure support trial again today. 04/05: Patient had to be restarted on fentanyl drip therefore Seroquel was increased back to 250 twice daily and he was started on scheduled narcotics and efforts to wean fentanyl drip. Doxazosin was increased to twice daily as patient still had retention issues on doxazosin once a day. Patient was denied LTAC placement. CPAP trial today. 04/06: Right upper extremity ultrasound obtained due to edema which showed DVT. Patient started on heparin drip. Overnight patient had hypoxia, tachypnea, tachycardia, hypotension and FiO2 was increased to 100%. RT titrating as tolerated. Plan was to start T-piece trials today. Patient has been denied LTAC placement. 04/07: BLE dopplar, continue lasix per [facility], CXR in AM. Increase in fio2 overnight d/t desaturation. Wean FiO2 as tolerated. 04/08: Patient remains on 65% FiO2, s/p Lasix for 3 doses, hyperkalemia noted today and medically treated. [facility] plans to consult heme/onc once FiO2 decreased. Remains on heparin gtt 04/09: No acute events reported overnight, possible heme-onc consult on Saturday or Saturday regarding upper extremity DVT, wean FiO2 as tolerated. Repeat CT head on Monday 04/10: Patient mentation is unchanged, repeat CT head today. Remains on heparin gtt per protocol. Continue daily PST as tolerated. Assessment and Plan #Acute Hypoxic Respiratory Failure #COVID Pneumonia - Intubated on 03/10 due to worsen hypoxia on BIPAP - 2/ s/p Tracheostomy - Vent setting:Cpap-35%,8 Ps-10 - This am ABG noted - CCM consulted, appreciate recommendations - Continue Nebs per CCM - keep patient net negative for better lung compliance - VAP bundle addressed - Aspiration precaution HOB above 30 - Daily SBT and SAT trials as tolerated - Daily ABG and CXR - Continue SPO2 monitoring for SPO2 goal above 92% #Sepsis #COVID Pneumonia #Leukocytosis #Lactic Acidosis- Resolved - COVID PCR positive - UA neg, Blood cultures and Sputum culture NGTD - repeat Bculture NGTD, 03/17 Sputum Cult + Stenotrophomonas - Infectious disease consulted, appreciate recommendation - S/p Actemra 03/10/2021 - Completed X5days course of IV remdesivir - IV abx per ID - Monitor WBC and temperature curve - Trend CBC -04/07 Per ID: if persistently febrile and WBC rises, reculture and then restart abx: IV Cefepime + Vancomycin #Neuro:Acute Encephalopathy - Intubated and sedated on fentanyl RASS -2 - CT head/brain no acute Abn. - Repeat CT head pending - On Seroquel and Librium - Avoid benzodiazepine to reduce the possibility of delirium - Prn analgesia for CPOT greater than 3 - Maintenance of sleep-wake cycle - Neurology on consult #CV: Hypertension - 03/09 Echocardiogram shows a mildly dilated ascending aorta, normal LV systolic function, mild concentric LVH, LVEF 60 to 65% - Continue current antihypertensive regimen - Norvasc added for better control - PRN Labetalol for SBP above 160 - Continue Blood pressure monitoring per protocol #Urinary retention - Good reinserted for retention - Strict intake and output - Avoid nephrotoxic medications; Renally dose medications - Monitor and replace electrolytes as needed - Trend BMP #Acute right upper extremity DVT - Bilateral lower extremity ultrasounds negative for DVT, superficial thrombus in left gastrocnemius vein - CTA chest shows no gross pulm embolism - bilateral upper extremity ultrasound shows DVT in right upper extremity - On heparin gtt per protocol - SCDs to BLE while in bed - Transfuse hemoglobin less than 7 - Monitor for signs of bleeding #Endo:Type 2 DM - Continue high dose SSI Q6hrs - Lantus qHs - Avoid Hypoglycemia The high probability of a clinically significant, sudden or life threatening deterioration of the [Respiratory] system(s) required my full and direct attention, intervention and personal management. The aggregate critical care time was [60] minutes. This time is in addition to time spent performing reported procedures but includes the following: [x] Data Review and interpretation [x] Patient assessment and monitoring of vital signs [x] Documentation [x] Medication orders and management Disposition Plan: ICU Total Time Spent with Patient (Minutes): 60 History Interval history: Patient seen and examined at the bedside. Remains on the vent and on fentanyl gtt. KVNG overnight Hospitalist Physical - Constitutional Vitals: Temp Pulse Resp BP Pulse Ox 98 F 95 H 31 H 141/72 93 04/10/21 08:00 04/10/21 10:11 04/10/21 09:00 04/10/21 10:11 04/10/21 09:00 General appearance: Present: no acute distress, well-nourished, obese, other (On the vent, on sedation) - EENT Eyes: Present: PERRL - Respiratory Respiratory effort: normal Respiratory: bilateral: rhonchi - Cardiovascular Rhythm: regular Heart Sounds: Present: S1 & S2 - Extremities Extremities: no ischemia, pulses intact, pulses symmetrical Extremity abnormal: edema - Peripheral Assessment Generalized Edema Type: Pitting Edema Degree: 2+ Capillary Refill: < 3 seconds Skin Temperature: Warm Peripheral Pulses: within normal limits - Abdominal General gastrointestinal: soft, non-distended, normal bowel sounds - Integumentary Integumentary: Present: warm, dry - Psychiatric Psychiatric: other (On the vent, on sedation) - Neurologic Neurologic: other (On the vent, on sedation) - Allied Health Allied health notes reviewed: nursing Results - Labs CBC & Chem 7: 04/10/21 13:00 04/10/21 13:00 Labs: Laboratory Last Values WBC 11.4 K/mm3 (4.5-11.0) H 04/09/21 04:21 RBC 2.97 M/mm3 (3.65-5.03) L 04/09/21 04:21 Hgb 8.9 gm/dl (11.8-15.2) L 04/09/21 04:21 Hct 27.8 % (35.5-45.6) L 04/09/21 04:21 MCV 94 fl (84-94) 04/09/21 04:21 MCH 30 pg (28-32) 04/09/21 04:21 MCHC 32 % (32-34) 04/09/21 04:21 RDW 15.8 % (13.2-15.2) H 04/09/21 04:21 Plt Count 485 K/mm3 (140-440) H 04/09/21 04:21 Lymph % (Auto) 7.6 % (13.4-35.0) L 03/31/21 13:30 [place] % (Auto) 9.5 % (0.0-7.3) H 03/31/21 13:30 Eos % (Auto) 4.1 % (0.0-4.3) 03/31/21 13:30 Baso % (Auto) 0.5 % (0.0-1.8) 03/31/21 13:30 Lymph # (Auto) 0.6 K/mm3 (1.2-5.4) L 03/31/21 13:30 [place] # (Auto) 0.7 K/mm3 (0.0-0.8) 03/31/21 13:30 Eos # (Auto) 0.3 K/mm3 (0.0-0.4) 03/31/21 13:30 Baso # (Auto) 0.0 K/mm3 (0.0-0.1) 03/31/21 13:30 Add Manual Diff Complete 03/10/21 04:29 Total Counted 100 03/10/21 04:29 Seg Neutrophils % 78.3 % (40.0-70.0) H 03/31/21 13:30 Seg Neuts % (Manual) 94.0 % (40.0-70.0) H 03/10/21 04:29 Band Neutrophils % 0 % 03/10/21 04:29 Lymphocytes % (Manual) 1.0 % (13.4-35.0) L 03/10/21 04:29 Reactive Lymphs % (Man) 0 % 03/10/21 04:29 Monocytes % (Manual) 5.0 % (0.0-7.3) 03/10/21 04:29 Eosinophils % (Manual) 0 % (0.0-4.3) 03/10/21 04:29 Basophils % (Manual) 0 % (0.0-1.8) 03/10/21 04:29 Metamyelocytes % 0 % 03/10/21 04:29 Myelocytes % 0 % 03/10/21 04:29 Promyelocytes % 0 % 03/10/21 04:29 Blast Cells % 0 % 03/10/21 04:29 Nucleated RBC % 3.0 % (0.0-0.9) H 03/10/21 04:29 Seg Neutrophils # 5.8 K/mm3 (1.8-7.7) 03/31/21 13:30 Seg Neutrophils # Man 19.4 K/mm3 (1.8-7.7) H 03/10/21 04:29 Band Neutrophils # 0.0 K/mm3 03/10/21 04:29 Lymphocytes # (Manual) 0.2 K/mm3 (1.2-5.4) L 03/10/21 04:29 Abs React Lymphs (Man) 0.0 K/mm3 03/10/21 04:29 Monocytes # (Manual) 1.0 K/mm3 (0.0-0.8) H 03/10/21 04:29 Eosinophils # (Manual) 0.0 K/mm3 (0.0-0.4) 03/10/21 04:29 Basophils # (Manual) 0.0 K/mm3 (0.0-0.1) 03/10/21 04:29 Metamyelocytes # 0.0 K/mm3 03/10/21 04:29 Myelocytes # 0.0 K/mm3 03/10/21 04:29 Promyelocytes # 0.0 K/mm3 03/10/21 04:29 Blast Cells # 0.0 K/mm3 03/10/21 04:29 WBC Morphology Not Reportable 03/10/21 04:29 Hypersegmented Neuts Not Reportable 03/10/21 04:29 Hyposegmented Neuts Not Reportable 03/10/21 04:29 Hypogranular Neuts Not Reportable 03/10/21 04:29 Smudge Cells Not Reportable 03/10/21 04:29 Toxic Granulation Not Reportable 03/10/21 04:29 Toxic Vacuolation Not Reportable 03/10/21 04:29 Dohle Bodies Not Reportable 03/10/21 04:29 Pelger-Huet Anomaly Not Reportable 03/10/21 04:29 Mely Rods Not Reportable 03/10/21 04:29 Platelet Estimate Consistent w auto 03/10/21 04:29 Clumped Platelets Not Reportable 03/10/21 04:29 Plt Clumps, EDTA Not Reportable 03/10/21 04:29 Large Platelets Not Reportable 03/10/21 04:29 Giant Platelets Not Reportable 03/10/21 04:29 Platelet Satelliting Not Reportable 03/10/21 04:29 Plt Morphology Comment Not Reportable 03/10/21 04:29 RBC Morphology Normal 03/10/21 04:29 Dimorphic RBCs Not Reportable 03/10/21 04:29 Polychromasia Not Reportable 03/10/21 04:29 Hypochromasia Not Reportable 03/10/21 04:29 Poikilocytosis Not Reportable 03/10/21 04:29 Anisocytosis Not Reportable 03/10/21 04:29 Microcytosis Not Reportable 03/10/21 04:29 Macrocytosis Not Reportable 03/10/21 04:29 Spherocytes Not Reportable 03/10/21 04:29 Pappenheimer Bodies Not Reportable 03/10/21 04:29 Sickle Cells Not Reportable 03/10/21 04:29 Target Cells Not Reportable 03/10/21 04:29 Tear Drop Cells Not Reportable 03/10/21 04:29 Ovalocytes Not Reportable 03/10/21 04:29 Helmet Cells Not Reportable 03/10/21 04:29 [place] Bodies Not Reportable 03/10/21 04:29 [place] Rings Not Reportable 03/10/21 04:29 [place] Cells Not Reportable 03/10/21 04:29 Bite Cells Not Reportable 03/10/21 04:29 Crenated Cell Not Reportable 03/10/21 04:29 Elliptocytes Not Reportable 03/10/21 04:29 Acanthocytes (Spur) Not Reportable 03/10/21 04:29 Rouleaux Not Reportable 03/10/21 04:29 Hemoglobin C Crystals Not Reportable 03/10/21 04:29 Schistocytes Not Reportable 03/10/21 04:29 Malaria parasites Not Reportable 03/10/21 04:29 [place] Bodies Not Reportable 03/10/21 04:29 Hem Pathologist Commnt No 03/10/21 04:29 PT 13.6 Sec. (12.2-14.9) 04/06/21 15:36 INR 0.94 (0.87-1.13) 04/06/21 15:36 APTT 37.1 Sec. (24.2-36.6) H 04/06/21 15:36 D-Dimer 1359.12 ng/mlDDU (0-234) H 03/17/21 04:40 Heparin Anti-Xa Level 0.68 U.I./ml (0.3-0.7) 04/09/21 04:21 ABG pH 7.424 pH Units (7.350-7.450) 04/09/21 20:10 POC ABG pCO2 57.4 mmHg (32.0-48.0) H 04/06/21 04:49 ABG pCO2 64.5 mm Hg 04/09/21 20:10 POC ABG pO2 55.1 mmHg (83-108) L 04/06/21 04:49 ABG pO2 68.1 mm Hg (80.0-90.0) L 04/09/21 20:10 POC ABG HCO3 36.2 04/06/21 04:49 ABG HCO3 41.3 mmol/L (20.0-26.0) H 04/09/21 20:10 ABG O2 Saturation 97.1 % (95.0-99.0) 04/09/21 20:10 ABG O2 Content 13.6 (0.0-44) 04/09/21 20:10 POC ABG Base Excess 10.0 04/06/21 04:49 ABG Base Excess 14.6 mmol/L (-2.0-3.0) H 04/09/21 20:10 ABG Hemoglobin 10.2 gm/dl (14.0-18.0) L 04/09/21 20:10 ABG Oxyhemoglobin 87.5 (94-98) L 04/06/21 04:49 ABG Carboxyhemoglobin 2.0 % (0.0-5.0) 04/09/21 20:10 ABG Methemoglobin 0.5 % (0.0-1.5) 04/09/21 20:10 ABG Sodium 134.2 mmol/L (136.0-145.0) L 03/12/21 21:54 ABG Potassium 4.9 mmol/L (3.40-4.50) H 03/12/21 21:54 ABG Chloride 99.0 mmol/L (98-107) 03/12/21 21:54 ABG Glucose 306 mg/dL (65-95) H 03/12/21 21:54 Oxyhemoglobin 94.7 % (95.0-99.0) L 04/09/21 20:10 Carboxyhemoglobin 0.8 (0.5-1.5) 04/06/21 04:49 FiO2 40 % 04/09/21 20:10 FiO2 % 40.0 04/06/21 04:49 Sodium 141 mmol/L (137-145) 04/09/21 04:21 Potassium 4.5 mmol/L (3.6-5.0) 04/09/21 04:21 Chloride 97.1 mmol/L (98-107) L 04/09/21 04:21 Carbon Dioxide 40 mmol/L (22-30) H 04/09/21 04:21 Anion Gap 8 mmol/L 04/09/21 04:21 BUN 21 mg/dL (9-20) H 04/09/21 04:21 Creatinine 0.5 mg/dL (0.8-1.3) L 04/09/21 04:21 Estimated GFR > 60 ml/min 04/09/21 04:21 BUN/Creatinine Ratio 42 % 04/09/21 04:21 Glucose 149 mg/dL (75-100) H 04/09/21 04:21 POC Glucose 172 mg/dL (70-105) H 04/10/21 05:26 Lactic Acid 1.90 mmol/L (0.7-2.0) 03/08/21 23:51 Calcium 9.1 mg/dL (8.4-10.2) 04/09/21 04:21 Phosphorus 1.90 mg/dL (2.5-4.5) L D 04/09/21 04:21 Magnesium 2.30 mg/dL (1.7-2.3) 04/09/21 04:21 Ferritin 976.4 ng/mL (30.0-300.0) H 03/15/21 04:00 Total Bilirubin 0.20 mg/dL (0.1-1.2) 03/12/21 08:03 AST 10 units/L (5-40) 03/12/21 08:03 ALT 16 units/L (7-56) 03/12/21 08:03 Alkaline Phosphatase 77 units/L (35-129) 03/12/21 08:03 Lactate Dehydrogenase 630 units/L (91-180) H 03/15/21 06:06 C-Reactive Protein 0.40 mg/dL (0.00-1.30) 03/17/21 04:40 NT-Pro-B Natriuret Pep 1053 pg/mL (0-900) H 03/08/21 20:24 Total Protein 6.0 g/dL (6.3-8.2) L 03/12/21 08:03 Albumin 2.9 g/dL (3.9-5) L 03/12/21 08:03 Albumin/Globulin Ratio 0.9 % 03/12/21 08:03 Triglycerides 305 mg/dL (2-149) H 03/22/21 07:26 Procalcitonin 0.17 ng/mL (<0.15) 04/01/21 07:16 Arterial Blood Glucose 306 mg/dL (65-95) H 03/12/21 21:54 Arterial Blood Ionized Calcium 5.0 mg/dL (4.6-5.3) 03/12/21 21:54 Urine Color Yellow (Yellow) 03/09/21 04:10 Urine Turbidity Slightly-cloudy (Clear) 03/09/21 04:10 Urine pH 5.0 (5.0-7.0) 03/09/21 04:10 Ur Specific [place] 1.041 (1.003-1.030) H 03/09/21 04:10 Urine Protein 100 mg/dl mg/dL (Negative) 03/09/21 04:10 Urine Glucose (UA) Neg mg/dL (Negative) 03/09/21 04:10 Urine Ketones Neg mg/dL (Negative) 03/09/21 04:10 Urine Blood Mod (Negative) 03/09/21 04:10 Urine Nitrite Neg (Negative) 03/09/21 04:10 Urine Bilirubin Neg (Negative) 03/09/21 04:10 Urine Urobilinogen 2.0 mg/dL (<2.0) 03/09/21 04:10 Ur Leukocyte Esterase Neg (Negative) 03/09/21 04:10 Urine WBC (Auto) 4.0 /HPF (0.0-6.0) 03/09/21 04:10 Urine RBC (Auto) 1.0 /HPF (0.0-6.0) 03/09/21 04:10 Urine Bacteria (Auto) 1+ /HPF (Negative) 03/09/21 04:10 Urine Mucus Few /HPF 03/09/21 04:10 Coronavirus (PCR) Positive (Negative) A 03/09/21 08:00 Miscellaneous Test Flexitest 1 03/16/21 13:14 Good/IV: Voiding Method Indwelling Catheter Active Medications - Current Medications Current Medications: Generic Name Dose Route Start Last Admin Trade Name Freq PRN Reason Stop Dose Admin Acetaminophen 650 mg 03/09/21 01:26 04/07/21 21:40 Acetaminophen 325 Mg Tab PO 650 mg Q4H PRN Administration Pain MILD(1-3)/Fever >100.5/RAYO Albuterol 2.5 mg 03/09/21 01:26 03/18/21 21:06 Albuterol 2.5 Mg/3 Ml Nebu IH 2.5 mg Q4HRT PRN Administration Shortness Of Breath Amlodipine Besylate 5 mg 03/30/21 10:00 04/10/21 10:11 Amlodipine 5 Mg Tab PO 5 mg QDAY BLANCA Administration Arformoterol Tartrate 15 mcg 03/11/21 20:00 04/10/21 08:00 Arformoterol 15 Mcg/2 Ml Nebu IH 15 mcg Q12HRT BLANCA Administration Bisacodyl 10 mg 03/26/21 13:43 03/26/21 13:51 Bisacodyl 10 Mg Rect Supp [place] 10 mg QDAY PRN Administration Constipation Budesonide 0.5 mg 04/06/21 20:00 04/10/21 09:01 Budesonide 0.5 Mg/2 Ml Nebu IH 0.5 mg Q12HRT BLANCA Administration Budesonide 0.25 mg 04/09/21 09:00 04/10/21 09:05 Budesonide 0.25 Mg/2 Ml Nebu IH Not Given Q12HRT BLANCA Chlordiazepoxide HCl 75 mg 03/22/21 18:00 04/10/21 05:28 Chlordiazepoxide 25 Mg Cap PO 75 mg Q6HR BLANCA Administration Dextrose 0 ml 03/20/21 10:52 Dextrose 10% *Hypoglycemia IV PRN PRN Hypoglycemia Doxazosin Mesylate 1 mg 04/05/21 22:00 04/10/21 10:11 Doxazosin 1 Mg Tab PO 1 mg BID BLANCA Administration Famotidine 20 mg 03/12/21 22:00 04/10/21 10:11 Famotidine 20 Mg Tab FEEDTUBE 20 mg BID BLANCA Administration Fentanyl 1 applic 03/31/21 15:00 04/09/21 09:50 Fentanyl 75 Mcg/Hr Patch 72hr TD 1 applic Q3D BLANCA Administration Fentanyl 50 mcg 04/04/21 17:00 04/08/21 18:11 Fentanyl 100 Mcg/2 Ml Inj IV 50 mcg Q10MIN PRN Administration ANALGESIA Heparin Sodium (Porcine) 4,900 unit 04/07/21 01:47 04/07/21 20:37 Heparin 10,000 Units/10 Ml Vial 40 unit/kg (4900 unit) 4,900 unit IV Administration Q6H PRN Anti-Xa Assay < 0.1 units/ml Hydralazine HCl 50 mg 03/23/21 14:26 04/10/21 05:29 Hydralazine 25 Mg Tab PO 50 mg Q8HR BLANCA Administration Hydrophilic Ointment 1 applic 03/10/21 15:39 Lip Therapy Vaseline TP Q2HR PRN Dry Lips Fentanyl Citrate 2,000 mcg in 100 mls @ 6.1 mls/hr 04/04/21 17:00 04/10/21 10:22 Fentanyl Drip Premix IV 2 mcg/kg/hr TITR BLANCA 12.2 mls/hr Administration Protocol 1 MCG/KG/HR Heparin Sodium/Sodium Chloride 25,000 unit in 500 mls @ 30 mls/hr 04/06/21 16:00 04/10/21 10:10 Heparin/ 0.45% Nacl-25,000 Unit/500 Ml IV 2,550 units/hr TITR BLANCA 51 mls/hr Administration Protocol 1,500 UNITS/HR Insulin Glargine 18 units 04/07/21 22:00 04/09/21 21:13 Insulin Glargine 100 Units/Ml SUB-Q 18 units QHS BLANCA Administration Insulin Human Lispro 0 unit 03/11/21 18:00 04/10/21 05:31 Insulin Lispro 100 Unit/Ml SUB-Q 3 unit Q6HR BLANCA Administration Protocol Metoprolol Tartrate 12.5 mg 03/21/21 22:00 04/10/21 10:10 Metoprolol Tartrate 25 Mg Tab PO 12.5 mg BID BLANCA Administration Midazolam HCl 2 mg 03/15/21 08:49 04/06/21 04:04 Midazolam 2 Mg/2 Ml Inj IV 2 mg Q2H PRN Administration VENT SYNCHRONY Multi-Ingred Cream/Lotion/Oil/Oint 1 applic 03/10/21 15:39 Mineral Oil/Petrolatum, White Ophth Oint 3.5 Gm OU Q4HR PRN Dry Eye(s) Ondansetron HCl 4 mg 03/09/21 01:26 Ondansetron 4 Mg/2 Ml Inj IV Q8H PRN Nausea And Vomiting Oxycodone HCl 5 mg 04/05/21 14:00 04/10/21 08:31 Oxycodone 5 Mg Tab PO 5 mg TID BLANCA Administration Phenyleph/Shark Oil/Min Oil/Petrol 1 applic 03/22/21 17:35 04/06/21 04:04 Pe/Mo/Pet,Wh 10 Applic/28 Gm Tube [place] 1 applic Q6HR PRN Administration Hemorrhoids Polyethylene Glycol 17 gm 04/02/21 10:00 04/10/21 10:12 Polyethylene Glycol 3350 17 Gm Powder FEEDTUBE 17 gm QDAY BLANCA Administration Quetiapine Fumarate 200 mg 04/04/21 22:00 04/10/21 10:10 Quetiapine 200 Mg Tab PO 200 mg BID BLANCA Administration Quetiapine Fumarate 50 mg 04/05/21 14:00 04/10/21 10:10 Quetiapine 25 Mg Tab PO 50 mg BID BLANCA Administration Senna/Docusate Sodium 2 tab 04/02/21 10:00 04/10/21 10:12 Sennosides/Docusate Sodium 8.6/50 Mg Tab FEEDTUBE 2 tab BID BLANCA Administration Sodium Chloride 10 ml 03/09/21 10:00 04/10/21 10:16 Sodium Chloride 0.9% 10 Ml Flush Syringe IV 10 ml BID BLANCA Administration Sodium Chloride 10 ml 03/09/21 01:26 04/02/21 21:13 Sodium Chloride 0.9% 10 Ml Flush Syringe IV 10 ml PRN PRN Administration LINE FLUSH Sodium Chloride 10 ml 03/20/21 09:48 Sodium Chloride 0.9% 50 Ml Ivpb IV PRN PRN FLUSH Nutrition/Malnutrition Assess - Dietary Evaluation Nutrition/Malnutrition Findings: Nutrition Notes Start: 03/09/21 08:49 Freq: Status: Active Protocol: Document 04/07/21 14:55 BRIAN (Rec: 04/07/21 14:58 BRIAN [id number]) Nutrition Notes Initial or Follow up Reassessment Current Diagnosis Diabetes,Sepsis,Hypertension, Respiratory Failure Other Pertinent Diagnosis COVID-19, Bilateral Pneumonia. Current Diet TF-Glucerna 1.2 at 70 ml/hr Labs/Tests BG 216 Pertinent Medications Heparin gtt, Miralax, Senokot Height 5 ft 11 in Weight 122 kg [place] Body Weight (kg) 78.18 BMI 37.5 Weight Status Obese Subjective/Other Information Pt remains on vent support. Per RN, pt tolerating TF at goal rate. Percent of energy/protein needs met: 82% energy 78% pro Burn Absent Trauma Absent #1 Nutrition Diagnosis Inadequate oral intake Diagnosis Progress(for reassessment Continues documentation) Is patient on ventilator? Yes Is Patient Ambulatory and/or Out of Bed No REE-([facility]-confined to bed) [phone] Calculation Used for Recommendations 70-80% energy needs Additional Notes Energy needs: 7150-7045 kcal/ day Pro needs 1.3g/kg adjBW: 130g/ day Fluid needs 1ml/kcal Nutrition Intervention Nutrition Support: Continue Glucerna 1.2 at 70ml/ hr with 110ml water flush q4h. Kcal 2,016 Protein (gm) 101 Carbohydrates (gm) 192 Fat (gm) 101 Fluid (mL) 1,352 Fiber (gm) 27 Goal #1 TF tolerance Goal #2 TF to meet at least 75% energy and pro needs Follow-Up By: 04/14/21 Additional Comments F/U: stable TF, vent status, wt
--- NOTE | 2021-04-10 11:31 | Progress Note ---
Assessment and Plan Acute hypoxemic respiratory failure, on MVS COVID-19 infection Bilateral pneumonia Obesity BMI 36 Hypertension Leukocytosis Possible venous thromboembolic phenomena with significantly elevated D-dimers DM II Elevated serum inflammatory markers to include CRP levels, ferritin and LDH Hyperkalemia Daily assessment to wean, daily SAT and SBT Trach care, airway clearance, secretion management His fevers could be secondary to non-infectious reasons. Trend temperature curve and WCC Follow cultures Discharge planning - VAP bundle addressed, aspiration precautions - continue to titrate supplemental oxygen to keep SpO2 88-90% - continue bronchodilators with pulmonary hygiene per RT - continue accuchecks with glycemic control per SSI (While critically ill target blood glucose of 140-180 mg/dL; avoid hypoglycemia) - avoid nephrotoxins, renally dose all medications - avoid benzodiazepines, reduce the possibility of delirium - sedation target for RASS -1 to -2 -On Propofol and Fentanyl - prn analgesia per pain score - Maintenance of sleep-wake cycle, avoid delirium - Stress ulcer prophylaxis -Therapeutic anticoagulation- on heparin infusion - mobility, off loading and frequent turning per facility protocol for pressure ulcer prevention - Monitor hemodynamics closely - continue other care per attending / other consultants COVID SPECIFIC INTERVENTIONS - s/p Remdesivir per ID/Pulmonary developed protocols - s/p systemic steroids for severe COVID-19 infection -Solumedrol CONDITION: CRITICAL PROGNOSIS: GUARDED CODE STATUS: FULL CODE The high probability of a clinically significant, sudden or life-threatening deterioration of the [respiratory, cardiovascular & hematologic] system(s) required my full and direct attention, intervention and personal management. The aggregate critical care time was [35] minutes without overlap. Time includes spent on; [x] Data Review and interpretation [x] Patient assessment and monitoring of vital signs [x] Documentation [x] Medication orders and management Subjective Date of service: 04/10/21 Principal diagnosis: COVID-19 infection; DM II; Bilateral pneumonia; Obesity; HTN Interval history: Patient is seen today for: Acute hypoxemic respiratory failure; COVID-19 infection; DM II; Bilateral pneumonia; Obesity; HTN Seen and examined at bedside; 24hour events reviewed; nursing and respiratory care staff consulted; no adverse overnight events reported to me; resting in bed; on MVS PEEP +8, FIO2 35 %; no emesis or overt aspiration;on PSV but has episodes of desaturations, with increased work of breathing- placed back on full support; On going intermittent fevers, on heparin infusion fro DVTs. Good remains for urinary retention Objective Vital Signs - 12hr 04/09/21 04/10/21 04/10/21 23:42 00:00 00:01 Temperature 98.7 F Pulse Rate 91 H Pulse Rate [ Bilateral Throughout] Pulse Rate [ From Monitor] Respiratory 31 H Rate Respiratory Rate [Bilateral Throughout] Blood Pressure 134/72 O2 Sat by Pulse 91 Oximetry O2 Sat by Pulse 94 Oximetry [ Assessment] 04/10/21 04/10/21 04/10/21 00:45 01:01 02:01 Temperature Pulse Rate 96 H 92 H Pulse Rate [ Bilateral Throughout] Pulse Rate [ From Monitor] Respiratory 21 31 H 30 H Rate Respiratory Rate [Bilateral Throughout] Blood Pressure 152/81 152/81 O2 Sat by Pulse 93 93 97 Oximetry O2 Sat by Pulse Oximetry [ Assessment] 04/10/21 04/10/21 04/10/21 03:00 03:13 04:00 Temperature 99.3 F Pulse Rate 92 H 91 H Pulse Rate [ Bilateral Throughout] Pulse Rate [ From Monitor] Respiratory 29 H 29 H Rate Respiratory Rate [Bilateral Throughout] Blood Pressure 120/59 122/61 O2 Sat by Pulse 95 95 Oximetry O2 Sat by Pulse Oximetry [ Assessment] 04/10/21 04/10/21 04/10/21 04:18 04:20 05:00 Temperature Pulse Rate 91 H 91 H 91 H Pulse Rate [ Bilateral Throughout] Pulse Rate [ From Monitor] Respiratory 21 28 H Rate Respiratory Rate [Bilateral Throughout] Blood Pressure 122/61 117/55 O2 Sat by Pulse 96 93 95 Oximetry O2 Sat by Pulse Oximetry [ Assessment] 04/10/21 04/10/21 04/10/21 05:29 06:00 07:00 Temperature Pulse Rate 91 H 88 99 H Pulse Rate [ Bilateral Throughout] Pulse Rate [ From Monitor] Respiratory 30 H 29 H Rate Respiratory Rate [Bilateral Throughout] Blood Pressure 177/55 115/63 176/84 O2 Sat by Pulse 96 97 Oximetry O2 Sat by Pulse Oximetry [ Assessment] 04/10/21 04/10/21 04/10/21 08:00 09:00 10:00 Temperature 98 F Pulse Rate 95 H 97 H 94 H Pulse Rate [ 95 H Bilateral Throughout] Pulse Rate [ 97 H From Monitor] Respiratory 26 H 28 H 32 H Rate Respiratory 28 H Rate [Bilateral Throughout] Blood Pressure 120/72 120/72 141/72 O2 Sat by Pulse 95 96 93 Oximetry O2 Sat by Pulse 95 Oximetry [ Assessment] 04/10/21 04/10/21 10:10 10:11 Temperature Pulse Rate 95 H 95 H Pulse Rate [ Bilateral Throughout] Pulse Rate [ From Monitor] Respiratory Rate Respiratory Rate [Bilateral Throughout] Blood Pressure 141/72 141/72 O2 Sat by Pulse Oximetry O2 Sat by Pulse Oximetry [ Assessment] Constitutional: no acute distress, agitated, other (elderly obese male with mildly increased respiratory effort at rest) Eyes: non-icteric ENT: oropharynx moist, other (+ midline tracheostomy) Neck: supple, no lymphadenopathy, no JVD, other (large circumference) Effort: mildly labored Ascultation: Bilateral: diminished breath sounds, rales, rhonchi Percussion: Bilateral: not dull Cardiovascular: regular rate and rhythm, other (tachycardia, S1,S2) Gastrointestinal: normoactive bowel sounds, soft, non-tender, non-distended (protuberant) Integumentary: normal Extremities: no cyanosis, pulses normal, no ischemia or petechiae, edema (upper extremities), other Neurologic: pupils equal and round, other (sedated) Psychiatric: other (unable to assess re: AMS) CBC and BMP: 04/10/21 13:00 04/10/21 13:00 ABG, PT/INR, D-dimer: ABG ABG pH 7.424 pH Units (7.350-7.450) 04/09/21 20:10 POC ABG pCO2 57.4 mmHg (32.0-48.0) H 04/06/21 04:49 ABG pCO2 64.5 mm Hg 04/09/21 20:10 POC ABG pO2 55.1 mmHg (83-108) L 04/06/21 04:49 ABG pO2 68.1 mm Hg (80.0-90.0) L 04/09/21 20:10 POC ABG HCO3 36.2 04/06/21 04:49 ABG O2 Saturation 97.1 % (95.0-99.0) 04/09/21 20:10 PT/INR, D-dimer PT 13.6 Sec. (12.2-14.9) 04/06/21 15:36 INR 0.94 (0.87-1.13) 04/06/21 15:36 D-Dimer 1359.12 ng/mlDDU (0-234) H 03/17/21 04:40 Abnormal lab findings: Abnormal Labs 03/08/21 03/08/21 03/08/21 20:24 20:24 20:24 WBC 22.6 H RBC 5.44 H Hgb 15.7 H Hct 49.2 H MCV MCHC RDW Plt Count Lymph % (Auto) [place] % (Auto) Lymph # (Auto) [place] # (Auto) Seg Neutrophils % Seg Neuts % (Manual) 83.0 H Lymphocytes % (Manual) 9.0 L Monocytes % (Manual) 8.0 H Nucleated RBC % Seg Neutrophils # Seg Neutrophils # Man 18.8 H Lymphocytes # (Manual) Monocytes # (Manual) 1.8 H PT 16.1 H INR 1.17 H APTT D-Dimer > 24662 H Heparin Anti-Xa Level ABG pH POC ABG pCO2 POC ABG pO2 ABG pO2 ABG HCO3 ABG O2 Saturation ABG Base Excess ABG Hemoglobin ABG Oxyhemoglobin ABG Sodium ABG Potassium ABG Glucose Oxyhemoglobin Sodium 136 L Potassium Chloride 93.9 L Carbon Dioxide BUN 29 H Creatinine Glucose 208 H POC Glucose Lactic Acid Calcium Phosphorus Magnesium Ferritin Lactate Dehydrogenase 624 H C-Reactive Protein 18.00 H NT-Pro-B Natriuret Pep 1053 H Total Protein Albumin Triglycerides Arterial Blood Glucose Ur Specific [place] Coronavirus (PCR) 03/08/21 03/08/21 03/09/21 20:24 20:24 04:10 WBC RBC Hgb Hct MCV MCHC RDW Plt Count Lymph % (Auto) [place] % (Auto) Lymph # (Auto) [place] # (Auto) Seg Neutrophils % Seg Neuts % (Manual) Lymphocytes % (Manual) Monocytes % (Manual) Nucleated RBC % Seg Neutrophils # Seg Neutrophils # Man Lymphocytes # (Manual) Monocytes # (Manual) PT INR APTT D-Dimer Heparin Anti-Xa Level ABG pH POC ABG pCO2 POC ABG pO2 ABG pO2 ABG HCO3 ABG O2 Saturation ABG Base Excess ABG Hemoglobin ABG Oxyhemoglobin ABG Sodium ABG Potassium ABG Glucose Oxyhemoglobin Sodium Potassium Chloride Carbon Dioxide BUN Creatinine Glucose POC Glucose Lactic Acid 2.10 H* Calcium Phosphorus Magnesium Ferritin 877.5 H Lactate Dehydrogenase C-Reactive Protein NT-Pro-B Natriuret Pep Total Protein Albumin Triglycerides Arterial Blood Glucose Ur Specific [place]ie 1.041 H Coronavirus (PCR) 03/09/21 03/09/21 03/09/21 07:46 08:00 13:01 WBC RBC Hgb Hct MCV MCHC RDW Plt Count Lymph % (Auto) [place] % (Auto) Lymph # (Auto) [place] # (Auto) Seg Neutrophils % Seg Neuts % (Manual) Lymphocytes % (Manual) Monocytes % (Manual) Nucleated RBC % Seg Neutrophils # Seg Neutrophils # Man Lymphocytes # (Manual) Monocytes # (Manual) PT INR APTT D-Dimer Heparin Anti-Xa Level ABG pH POC ABG pCO2 POC ABG pO2 ABG pO2 ABG HCO3 ABG O2 Saturation ABG Base Excess ABG Hemoglobin ABG Oxyhemoglobin ABG Sodium ABG Potassium ABG Glucose Oxyhemoglobin Sodium Potassium Chloride Carbon Dioxide BUN Creatinine Glucose POC Glucose 191 H 182 H Lactic Acid Calcium Phosphorus Magnesium Ferritin Lactate Dehydrogenase C-Reactive Protein NT-Pro-B Natriuret Pep Total Protein Albumin Triglycerides Arterial Blood Glucose Ur Specific [place] Coronavirus (PCR) Positive A 03/09/21 03/09/21 03/09/21 15:19 17:48 18:10 WBC RBC Hgb Hct MCV MCHC RDW Plt Count Lymph % (Auto) [place] % (Auto) Lymph # (Auto) [place] # (Auto) Seg Neutrophils % Seg Neuts % (Manual) Lymphocytes % (Manual) Monocytes % (Manual) Nucleated RBC % Seg Neutrophils # Seg Neutrophils # Man Lymphocytes # (Manual) Monocytes # (Manual) PT INR APTT D-Dimer Heparin Anti-Xa Level ABG pH POC ABG pCO2 POC ABG pO2 ABG pO2 47.3 L ABG HCO3 26.3 H ABG O2 Saturation 83.7 L ABG Base Excess ABG Hemoglobin ABG Oxyhemoglobin ABG Sodium ABG Potassium ABG Glucose Oxyhemoglobin 82.1 L Sodium Potassium Chloride Carbon Dioxide BUN 29 H Creatinine Glucose 214 H POC Glucose 194 H Lactic Acid Calcium Phosphorus Magnesium Ferritin Lactate Dehydrogenase C-Reactive Protein NT-Pro-B Natriuret Pep Total Protein Albumin 3.4 L Triglycerides Arterial Blood Glucose Ur Specific [place] Coronavirus (PCR) 03/09/21 03/10/21 03/10/21 20:40 04:29 04:29 WBC 20.6 H RBC 5.07 H Hgb Hct 46.2 H MCV MCHC RDW Plt Count Lymph % (Auto) [place] % (Auto) Lymph # (Auto) [place] # (Auto) Seg Neutrophils % Seg Neuts % (Manual) 94.0 H Lymphocytes % (Manual) 1.0 L Monocytes % (Manual) Nucleated RBC % 3.0 H Seg Neutrophils # Seg Neutrophils # Man 19.4 H Lymphocytes # (Manual) 0.2 L Monocytes # (Manual) 1.0 H PT INR APTT D-Dimer Heparin Anti-Xa Level ABG pH POC ABG pCO2 POC ABG pO2 ABG pO2 ABG HCO3 ABG O2 Saturation ABG Base Excess ABG Hemoglobin ABG Oxyhemoglobin ABG Sodium ABG Potassium ABG Glucose Oxyhemoglobin Sodium Potassium Chloride Carbon Dioxide BUN 29 H Creatinine Glucose 188 H POC Glucose 176 H Lactic Acid Calcium Phosphorus Magnesium Ferritin Lactate Dehydrogenase C-Reactive Protein NT-Pro-B Natriuret Pep Total Protein Albumin 3.3 L Triglycerides Arterial Blood Glucose Ur Specific [place] Coronavirus (PCR) 03/10/21 03/10/21 03/10/21 05:22 10:27 15:25 WBC RBC Hgb Hct MCV MCHC RDW Plt Count Lymph % (Auto) [place] % (Auto) Lymph # (Auto) [place] # (Auto) Seg Neutrophils % Seg Neuts % (Manual) Lymphocytes % (Manual) Monocytes % (Manual) Nucleated RBC % Seg Neutrophils # Seg Neutrophils # Man Lymphocytes # (Manual) Monocytes # (Manual) PT INR APTT D-Dimer Heparin Anti-Xa Level ABG pH 7.488 H 7.488 H POC ABG pCO2 POC ABG pO2 ABG pO2 47.7 L 50.5 L ABG HCO3 ABG O2 Saturation 86.2 L 87.9 L ABG Base Excess ABG Hemoglobin ABG Oxyhemoglobin ABG Sodium ABG Potassium ABG Glucose Oxyhemoglobin 84.6 L 86.2 L Sodium Potassium Chloride Carbon Dioxide BUN Creatinine Glucose POC Glucose 155 H Lactic Acid Calcium Phosphorus Magnesium Ferritin Lactate Dehydrogenase C-Reactive Protein NT-Pro-B Natriuret Pep Total Protein Albumin Triglycerides Arterial Blood Glucose Ur Specific [place] Coronavirus (PCR) 03/10/21 03/10/21 03/11/21 18:10 18:55 00:07 WBC RBC Hgb Hct MCV MCHC RDW Plt Count Lymph % (Auto) [place] % (Auto) Lymph # (Auto) [place] # (Auto) Seg Neutrophils % Seg Neuts % (Manual) Lymphocytes % (Manual) Monocytes % (Manual) Nucleated RBC % Seg Neutrophils # Seg Neutrophils # Man Lymphocytes # (Manual) Monocytes # (Manual) PT INR APTT D-Dimer Heparin Anti-Xa Level ABG pH 7.343 L POC ABG pCO2 POC ABG pO2 ABG pO2 60.4 L ABG HCO3 27.9 H ABG O2 Saturation 88.7 L ABG Base Excess ABG Hemoglobin ABG Oxyhemoglobin ABG Sodium ABG Potassium ABG Glucose Oxyhemoglobin 86.9 L Sodium Potassium Chloride Carbon Dioxide BUN Creatinine Glucose POC Glucose 187 H 139 H Lactic Acid Calcium Phosphorus Magnesium Ferritin Lactate Dehydrogenase C-Reactive Protein NT-Pro-B Natriuret Pep Total Protein Albumin Triglycerides Arterial Blood Glucose Ur Specific [place] Coronavirus (PCR) 03/11/21 03/11/21 03/11/21 02:09 04:28 08:06 WBC RBC Hgb Hct MCV MCHC RDW Plt Count Lymph % (Auto) [place] % (Auto) Lymph # (Auto) [place] # (Auto) Seg Neutrophils % Seg Neuts % (Manual) Lymphocytes % (Manual) Monocytes % (Manual) Nucleated RBC % Seg Neutrophils # Seg Neutrophils # Man Lymphocytes # (Manual) Monocytes # (Manual) PT INR APTT D-Dimer Heparin Anti-Xa Level ABG pH 7.277 L POC ABG pCO2 55.9 H POC ABG pO2 54.4 L ABG pO2 ABG HCO3 ABG O2 Saturation ABG Base Excess ABG Hemoglobin ABG Oxyhemoglobin 83.0 L ABG Sodium ABG Potassium 4.8 H ABG Glucose 180 H Oxyhemoglobin Sodium Potassium Chloride Carbon Dioxide BUN 38 H Creatinine Glucose 249 H POC Glucose 278 H Lactic Acid Calcium Phosphorus Magnesium Ferritin Lactate Dehydrogenase C-Reactive Protein NT-Pro-B Natriuret Pep Total Protein Albumin 3.2 L Triglycerides Arterial Blood Glucose 180 H Ur Specific [place] Coronavirus (PCR) 03/11/21 03/11/21 03/11/21 11:29 15:06 15:48 WBC RBC Hgb Hct MCV MCHC RDW Plt Count Lymph % (Auto) [place] % (Auto) Lymph # (Auto) [place] # (Auto) Seg Neutrophils % Seg Neuts % (Manual) Lymphocytes % (Manual) Monocytes % (Manual) Nucleated RBC % Seg Neutrophils # Seg Neutrophils # Man Lymphocytes # (Manual) Monocytes # (Manual) PT INR APTT D-Dimer Heparin Anti-Xa Level ABG pH 7.260 L POC ABG pCO2 POC ABG pO2 ABG pO2 53.5 L ABG HCO3 29.5 H ABG O2 Saturation 84.0 L ABG Base Excess ABG Hemoglobin ABG Oxyhemoglobin ABG Sodium ABG Potassium ABG Glucose Oxyhemoglobin 82.3 L Sodium Potassium Chloride Carbon Dioxide BUN Creatinine Glucose POC Glucose 288 H 295 H Lactic Acid Calcium Phosphorus Magnesium Ferritin Lactate Dehydrogenase C-Reactive Protein NT-Pro-B Natriuret Pep Total Protein Albumin Triglycerides Arterial Blood Glucose Ur Specific [place] Coronavirus (PCR) 03/12/21 03/12/21 03/12/21 00:01 05:24 08:03 WBC RBC Hgb Hct MCV MCHC RDW Plt Count Lymph % (Auto) [place] % (Auto) Lymph # (Auto) [place] # (Auto) Seg Neutrophils % Seg Neuts % (Manual) Lymphocytes % (Manual) Monocytes % (Manual) Nucleated RBC % Seg Neutrophils # Seg Neutrophils # Man Lymphocytes # (Manual) Monocytes # (Manual) PT INR APTT D-Dimer Heparin Anti-Xa Level ABG pH POC ABG pCO2 POC ABG pO2 ABG pO2 ABG HCO3 ABG O2 Saturation ABG Base Excess ABG Hemoglobin ABG Oxyhemoglobin ABG Sodium ABG Potassium ABG Glucose Oxyhemoglobin Sodium 135 L Potassium Chloride Carbon Dioxide BUN 48 H Creatinine Glucose 358 H POC Glucose 304 H 310 H Lactic Acid Calcium Phosphorus Magnesium Ferritin Lactate Dehydrogenase C-Reactive Protein NT-Pro-B Natriuret Pep Total Protein 6.0 L Albumin 2.9 L Triglycerides Arterial Blood Glucose Ur Specific [place] Coronavirus (PCR) 03/12/21 03/12/21 03/12/21 08:03 10:43 11:31 WBC 14.6 H RBC Hgb Hct MCV MCHC RDW Plt Count Lymph % (Auto) [place] % (Auto) Lymph # (Auto) [place] # (Auto) Seg Neutrophils % Seg Neuts % (Manual) Lymphocytes % (Manual) Monocytes % (Manual) Nucleated RBC % Seg Neutrophils # Seg Neutrophils # Man Lymphocytes # (Manual) Monocytes # (Manual) PT INR APTT D-Dimer Heparin Anti-Xa Level ABG pH 7.248 L POC ABG pCO2 POC ABG pO2 ABG pO2 73.7 L ABG HCO3 32.0 H ABG O2 Saturation 93.9 L ABG Base Excess ABG Hemoglobin ABG Oxyhemoglobin ABG Sodium ABG Potassium ABG Glucose Oxyhemoglobin 92.1 L Sodium Potassium Chloride Carbon Dioxide BUN Creatinine Glucose POC Glucose 359 H Lactic Acid Calcium Phosphorus Magnesium Ferritin Lactate Dehydrogenase C-Reactive Protein NT-Pro-B Natriuret Pep Total Protein Albumin Triglycerides Arterial Blood Glucose Ur Specific [place] Coronavirus (PCR) 03/12/21 03/12/21 03/13/21 17:20 21:54 00:02 WBC RBC Hgb Hct MCV MCHC RDW Plt Count Lymph % (Auto) [place] % (Auto) Lymph # (Auto) [place] # (Auto) Seg Neutrophils % Seg Neuts % (Manual) Lymphocytes % (Manual) Monocytes % (Manual) Nucleated RBC % Seg Neutrophils # Seg Neutrophils # Man Lymphocytes # (Manual) Monocytes # (Manual) PT INR APTT D-Dimer Heparin Anti-Xa Level ABG pH 7.238 L POC ABG pCO2 71.9 H POC ABG pO2 53.6 L ABG pO2 ABG HCO3 ABG O2 Saturation ABG Base Excess ABG Hemoglobin ABG Oxyhemoglobin 84.8 L ABG Sodium 134.2 L ABG Potassium 4.9 H ABG Glucose 306 H Oxyhemoglobin Sodium Potassium Chloride Carbon Dioxide BUN Creatinine Glucose POC Glucose 374 H 308 H Lactic Acid Calcium Phosphorus Magnesium Ferritin Lactate Dehydrogenase C-Reactive Protein NT-Pro-B Natriuret Pep Total Protein Albumin Triglycerides Arterial Blood Glucose 306 H Ur Specific [place] Coronavirus (PCR) 03/13/21 03/13/21 03/13/21 05:22 05:44 05:44 WBC 13.9 H RBC Hgb Hct MCV MCHC RDW Plt Count Lymph % (Auto) [place] % (Auto) Lymph # (Auto) [place] # (Auto) Seg Neutrophils % Seg Neuts % (Manual) Lymphocytes % (Manual) Monocytes % (Manual) Nucleated RBC % Seg Neutrophils # Seg Neutrophils # Man Lymphocytes # (Manual) Monocytes # (Manual) PT INR APTT D-Dimer 3567.97 H Heparin Anti-Xa Level ABG pH POC ABG pCO2 POC ABG pO2 ABG pO2 ABG HCO3 ABG O2 Saturation ABG Base Excess ABG Hemoglobin ABG Oxyhemoglobin ABG Sodium ABG Potassium ABG Glucose Oxyhemoglobin Sodium Potassium Chloride Carbon Dioxide BUN Creatinine Glucose POC Glucose 316 H Lactic Acid Calcium Phosphorus Magnesium Ferritin Lactate Dehydrogenase C-Reactive Protein NT-Pro-B Natriuret Pep Total Protein Albumin Triglycerides Arterial Blood Glucose Ur Specific [place] Coronavirus (PCR) 03/13/21 03/13/2122 05:44 05:44 11:15 WBC RBC Hgb Hct MCV MCHC RDW Plt Count Lymph % (Auto) [place] % (Auto) Lymph # (Auto) [place] # (Auto) Seg Neutrophils % Seg Neuts % (Manual) Lymphocytes % (Manual) Monocytes % (Manual) Nucleated RBC % Seg Neutrophils # Seg Neutrophils # Man Lymphocytes # (Manual) Monocytes # (Manual) PT INR APTT D-Dimer Heparin Anti-Xa Level ABG pH 7.310 L POC ABG pCO2 POC ABG pO2 ABG pO2 52.3 L ABG HCO3 34.1 H ABG O2 Saturation 86.8 L ABG Base Excess 5.5 H ABG Hemoglobin 13.8 L ABG Oxyhemoglobin ABG Sodium ABG Potassium ABG Glucose Oxyhemoglobin 85.1 L Sodium Potassium Chloride Carbon Dioxide BUN Creatinine Glucose POC Glucose Lactic Acid Calcium Phosphorus Magnesium Ferritin 858.7 H Lactate Dehydrogenase 348 H C-Reactive Protein 2.80 H NT-Pro-B Natriuret Pep Total Protein Albumin Triglycerides Arterial Blood Glucose Ur Specific [place] Coronavirus (PCR) 03/13/21 03/13/21 03/13/21 11:21 15:47 19:23 WBC RBC Hgb Hct MCV MCHC RDW Plt Count Lymph % (Auto) [place] % (Auto) Lymph # (Auto) [place] # (Auto) Seg Neutrophils % Seg Neuts % (Manual) Lymphocytes % (Manual) Monocytes % (Manual) Nucleated RBC % Seg Neutrophils # Seg Neutrophils # Man Lymphocytes # (Manual) Monocytes # (Manual) PT INR APTT D-Dimer Heparin Anti-Xa Level ABG pH POC ABG pCO2 POC ABG pO2 ABG pO2 ABG HCO3 ABG O2 Saturation ABG Base Excess ABG Hemoglobin ABG Oxyhemoglobin ABG Sodium ABG Potassium ABG Glucose Oxyhemoglobin Sodium 136 L Potassium 5.9 H Chloride Carbon Dioxide BUN 50 H Creatinine Glucose 397 H POC Glucose 322 H 317 H Lactic Acid Calcium Phosphorus Magnesium Ferritin Lactate Dehydrogenase C-Reactive Protein NT-Pro-B Natriuret Pep Total Protein Albumin Triglycerides Arterial Blood Glucose Ur Specific [place] Coronavirus (PCR) 03/13/21 03/14/21 03/14/21 23:46 05:32 05:50 WBC 11.6 H RBC Hgb Hct MCV MCHC RDW Plt Count Lymph % (Auto) [place] % (Auto) Lymph # (Auto) [place] # (Auto) Seg Neutrophils % Seg Neuts % (Manual) Lymphocytes % (Manual) Monocytes % (Manual) Nucleated RBC % Seg Neutrophils # Seg Neutrophils # Man Lymphocytes # (Manual) Monocytes # (Manual) PT INR APTT D-Dimer Heparin Anti-Xa Level ABG pH POC ABG pCO2 POC ABG pO2 ABG pO2 ABG HCO3 ABG O2 Saturation ABG Base Excess ABG Hemoglobin ABG Oxyhemoglobin ABG Sodium ABG Potassium ABG Glucose Oxyhemoglobin Sodium Potassium Chloride Carbon Dioxide BUN Creatinine Glucose POC Glucose 332 H 316 H Lactic Acid Calcium Phosphorus Magnesium Ferritin Lactate Dehydrogenase C-Reactive Protein NT-Pro-B Natriuret Pep Total Protein Albumin Triglycerides Arterial Blood Glucose Ur Specific [place] Coronavirus (PCR) 03/14/21 03/14/21 03/14/21 05:50 11:33 16:53 WBC RBC Hgb Hct MCV MCHC RDW Plt Count Lymph % (Auto) [place] % (Auto) Lymph # (Auto) [place] # (Auto) Seg Neutrophils % Seg Neuts % (Manual) Lymphocytes % (Manual) Monocytes % (Manual) Nucleated RBC % Seg Neutrophils # Seg Neutrophils # Man Lymphocytes # (Manual) Monocytes # (Manual) PT INR APTT D-Dimer Heparin Anti-Xa Level ABG pH POC ABG pCO2 POC ABG pO2 ABG pO2 ABG HCO3 ABG O2 Saturation ABG Base Excess ABG Hemoglobin ABG Oxyhemoglobin ABG Sodium ABG Potassium ABG Glucose Oxyhemoglobin Sodium Potassium 5.9 H Chloride Carbon Dioxide 31 H BUN 48 H Creatinine Glucose 380 H POC Glucose 315 H 235 H Lactic Acid Calcium Phosphorus Magnesium 3.40 H Ferritin Lactate Dehydrogenase C-Reactive Protein NT-Pro-B Natriuret Pep Total Protein Albumin Triglycerides Arterial Blood Glucose Ur Specific [place] Coronavirus (PCR) 03/14/21 03/14/21 03/15/21 18:34 23:27 01:22 WBC RBC Hgb Hct 46.3 H MCV MCHC RDW Plt Count Lymph % (Auto) [place] % (Auto) Lymph # (Auto) [place] # (Auto) Seg Neutrophils % Seg Neuts % (Manual) Lymphocytes % (Manual) Monocytes % (Manual) Nucleated RBC % Seg Neutrophils # Seg Neutrophils # Man Lymphocytes # (Manual) Monocytes # (Manual) PT INR APTT D-Dimer Heparin Anti-Xa Level ABG pH POC ABG pCO2 POC ABG pO2 ABG pO2 ABG HCO3 ABG O2 Saturation ABG Base Excess ABG Hemoglobin ABG Oxyhemoglobin ABG Sodium ABG Potassium ABG Glucose Oxyhemoglobin Sodium 146 H Potassium Chloride Carbon Dioxide 34 H BUN 49 H Creatinine Glucose 285 H POC Glucose 203 H Lactic Acid Calcium Phosphorus Magnesium Ferritin Lactate Dehydrogenase C-Reactive Protein NT-Pro-B Natriuret Pep Total Protein Albumin Triglycerides Arterial Blood Glucose Ur Specific [place] Coronavirus (PCR) 03/15/21 03/15/21 03/15/21 04:00 06:06 06:06 WBC RBC Hgb Hct MCV MCHC RDW Plt Count Lymph % (Auto) [place] % (Auto) Lymph # (Auto) [place] # (Auto) Seg Neutrophils % Seg Neuts % (Manual) Lymphocytes % (Manual) Monocytes % (Manual) Nucleated RBC % Seg Neutrophils # Seg Neutrophils # Man Lymphocytes # (Manual) Monocytes # (Manual) PT INR APTT D-Dimer 1781.79 H Heparin Anti-Xa Level ABG pH POC ABG pCO2 POC ABG pO2 ABG pO2 ABG HCO3 ABG O2 Saturation ABG Base Excess ABG Hemoglobin ABG Oxyhemoglobin ABG Sodium ABG Potassium ABG Glucose Oxyhemoglobin Sodium 148 H Potassium 5.7 H D Chloride 108.0 H Carbon Dioxide 31 H BUN 46 H Creatinine Glucose 139 H POC Glucose Lactic Acid Calcium Phosphorus 4.80 H D Magnesium 3.00 H Ferritin 976.4 H Lactate Dehydrogenase 630 H C-Reactive Protein NT-Pro-B Natriuret Pep Total Protein Albumin Triglycerides Arterial Blood Glucose Ur Specific [place] Coronavirus (PCR) 03/15/21 03/15/21 03/15/21 11:56 14:05 17:09 WBC RBC Hgb Hct MCV MCHC RDW Plt Count Lymph % (Auto) [place] % (Auto) Lymph # (Auto) [place] # (Auto) Seg Neutrophils % Seg Neuts % (Manual) Lymphocytes % (Manual) Monocytes % (Manual) Nucleated RBC % Seg Neutrophils # Seg Neutrophils # Man Lymphocytes # (Manual) Monocytes # (Manual) PT INR APTT D-Dimer Heparin Anti-Xa Level ABG pH POC ABG pCO2 POC ABG pO2 ABG pO2 52.1 L ABG HCO3 36.6 H ABG O2 Saturation 87.6 L ABG Base Excess 9.5 H ABG Hemoglobin ABG Oxyhemoglobin ABG Sodium ABG Potassium ABG Glucose Oxyhemoglobin 85.7 L Sodium Potassium Chloride Carbon Dioxide BUN Creatinine Glucose POC Glucose 219 H 263 H Lactic Acid Calcium Phosphorus Magnesium Ferritin Lactate Dehydrogenase C-Reactive Protein NT-Pro-B Natriuret Pep Total Protein Albumin Triglycerides Arterial Blood Glucose Ur Specific [place] Coronavirus (PCR) 03/16/21 03/16/21 03/16/21 00:32 04:11 04:11 WBC 11.9 H RBC Hgb Hct MCV MCHC 30 L RDW Plt Count Lymph % (Auto) [place] % (Auto) Lymph # (Auto) [place] # (Auto) Seg Neutrophils % Seg Neuts % (Manual) Lymphocytes % (Manual) Monocytes % (Manual) Nucleated RBC % Seg Neutrophils # Seg Neutrophils # Man Lymphocytes # (Manual) Monocytes # (Manual) PT INR APTT D-Dimer Heparin Anti-Xa Level ABG pH POC ABG pCO2 POC ABG pO2 ABG pO2 ABG HCO3 ABG O2 Saturation ABG Base Excess ABG Hemoglobin ABG Oxyhemoglobin ABG Sodium ABG Potassium ABG Glucose Oxyhemoglobin Sodium 151 H Potassium Chloride Carbon Dioxide 35 H BUN 48 H Creatinine Glucose 152 H POC Glucose 165 H Lactic Acid Calcium Phosphorus Magnesium Ferritin Lactate Dehydrogenase C-Reactive Protein NT-Pro-B Natriuret Pep Total Protein Albumin Triglycerides Arterial Blood Glucose Ur Specific [place] Coronavirus (PCR) 03/16/21 03/16/21 03/16/21 04:11 05:26 11:35 WBC RBC Hgb Hct MCV MCHC RDW Plt Count Lymph % (Auto) [place] % (Auto) Lymph # (Auto) [place] # (Auto) Seg Neutrophils % Seg Neuts % (Manual) Lymphocytes % (Manual) Monocytes % (Manual) Nucleated RBC % Seg Neutrophils # Seg Neutrophils # Man Lymphocytes # (Manual) Monocytes # (Manual) PT INR APTT D-Dimer Heparin Anti-Xa Level ABG pH POC ABG pCO2 POC ABG pO2 ABG pO2 ABG HCO3 ABG O2 Saturation ABG Base Excess ABG Hemoglobin ABG Oxyhemoglobin ABG Sodium ABG Potassium ABG Glucose Oxyhemoglobin Sodium Potassium Chloride Carbon Dioxide BUN Creatinine Glucose POC Glucose 162 H 187 H Lactic Acid Calcium Phosphorus Magnesium Ferritin Lactate Dehydrogenase C-Reactive Protein NT-Pro-B Natriuret Pep Total Protein Albumin Triglycerides 267 H Arterial Blood Glucose Ur Specific [place] Coronavirus (PCR) 03/16/21 03/16/21 03/16/21 17:29 22:25 23:22 WBC RBC Hgb Hct MCV MCHC RDW Plt Count Lymph % (Auto) [place] % (Auto) Lymph # (Auto) [place] # (Auto) Seg Neutrophils % Seg Neuts % (Manual) Lymphocytes % (Manual) Monocytes % (Manual) Nucleated RBC % Seg Neutrophils # Seg Neutrophils # Man Lymphocytes # (Manual) Monocytes # (Manual) PT INR APTT D-Dimer Heparin Anti-Xa Level ABG pH POC ABG pCO2 POC ABG pO2 ABG pO2 ABG HCO3 ABG O2 Saturation ABG Base Excess ABG Hemoglobin ABG Oxyhemoglobin ABG Sodium ABG Potassium ABG Glucose Oxyhemoglobin Sodium Potassium Chloride Carbon Dioxide BUN Creatinine Glucose POC Glucose 237 H 165 H 189 H Lactic Acid Calcium Phosphorus Magnesium Ferritin Lactate Dehydrogenase C-Reactive Protein NT-Pro-B Natriuret Pep Total Protein Albumin Triglycerides Arterial Blood Glucose Ur Specific [place] Coronavirus (PCR) 03/17/21 03/17/21 03/17/21 04:40 04:40 04:40 WBC 14.1 H RBC Hgb Hct MCV MCHC RDW 15.3 H Plt Count Lymph % (Auto) 12.6 L [place] % (Auto) 11.3 H Lymph # (Auto) [place] # (Auto) 1.6 H Seg Neutrophils % 74.9 H Seg Neuts % (Manual) Lymphocytes % (Manual) Monocytes % (Manual) Nucleated RBC % Seg Neutrophils # 10.5 H Seg Neutrophils # Man Lymphocytes # (Manual) Monocytes # (Manual) PT INR APTT D-Dimer 1359.12 H Heparin Anti-Xa Level ABG pH POC ABG pCO2 POC ABG pO2 ABG pO2 ABG HCO3 ABG O2 Saturation ABG Base Excess ABG Hemoglobin ABG Oxyhemoglobin ABG Sodium ABG Potassium ABG Glucose Oxyhemoglobin Sodium 148 H Potassium Chloride 107.5 H Carbon Dioxide 33 H BUN 42 H Creatinine Glucose 183 H POC Glucose Lactic Acid Calcium Phosphorus Magnesium 2.70 H Ferritin Lactate Dehydrogenase C-Reactive Protein NT-Pro-B Natriuret Pep Total Protein Albumin Triglycerides Arterial Blood Glucose Ur Specific [place] Coronavirus (PCR) 03/17/21 03/17/21 03/17/21 05:53 11:05 11:51 WBC RBC Hgb Hct MCV MCHC RDW Plt Count Lymph % (Auto) [place] % (Auto) Lymph # (Auto) [place] # (Auto) Seg Neutrophils % Seg Neuts % (Manual) Lymphocytes % (Manual) Monocytes % (Manual) Nucleated RBC % Seg Neutrophils # Seg Neutrophils # Man Lymphocytes # (Manual) Monocytes # (Manual) PT INR APTT D-Dimer Heparin Anti-Xa Level ABG pH POC ABG pCO2 POC ABG pO2 ABG pO2 ABG HCO3 35.7 H ABG O2 Saturation ABG Base Excess 8.7 H ABG Hemoglobin ABG Oxyhemoglobin ABG Sodium ABG Potassium ABG Glucose Oxyhemoglobin 94.2 L Sodium Potassium Chloride Carbon Dioxide BUN Creatinine Glucose POC Glucose 176 H 197 H Lactic Acid Calcium Phosphorus Magnesium Ferritin Lactate Dehydrogenase C-Reactive Protein NT-Pro-B Natriuret Pep Total Protein Albumin Triglycerides Arterial Blood Glucose Ur Specific [place] Coronavirus (PCR) 03/17/21 03/17/21 03/17/21 16:54 21:10 23:33 WBC RBC Hgb Hct MCV MCHC RDW Plt Count Lymph % (Auto) [place] % (Auto) Lymph # (Auto) [place] # (Auto) Seg Neutrophils % Seg Neuts % (Manual) Lymphocytes % (Manual) Monocytes % (Manual) Nucleated RBC % Seg Neutrophils # Seg Neutrophils # Man Lymphocytes # (Manual) Monocytes # (Manual) PT INR APTT D-Dimer Heparin Anti-Xa Level ABG pH POC ABG pCO2 POC ABG pO2 ABG pO2 ABG HCO3 ABG O2 Saturation ABG Base Excess ABG Hemoglobin ABG Oxyhemoglobin ABG Sodium ABG Potassium ABG Glucose Oxyhemoglobin Sodium Potassium Chloride Carbon Dioxide BUN Creatinine Glucose POC Glucose 135 H 160 H 138 H Lactic Acid Calcium Phosphorus Magnesium Ferritin Lactate Dehydrogenase C-Reactive Protein NT-Pro-B Natriuret Pep Total Protein Albumin Triglycerides Arterial Blood Glucose Ur Specific [place] Coronavirus (PCR) 03/18/21 03/18/21 03/18/21 04:18 04:50 05:43 WBC RBC Hgb Hct MCV MCHC RDW Plt Count Lymph % (Auto) [place] % (Auto) Lymph # (Auto) [place] # (Auto) Seg Neutrophils % Seg Neuts % (Manual) Lymphocytes % (Manual) Monocytes % (Manual) Nucleated RBC % Seg Neutrophils # Seg Neutrophils # Man Lymphocytes # (Manual) Monocytes # (Manual) PT INR APTT D-Dimer Heparin Anti-Xa Level ABG pH POC ABG pCO2 POC ABG pO2 ABG pO2 59.8 L ABG HCO3 36.5 H ABG O2 Saturation 90.7 L ABG Base Excess 9.4 H ABG Hemoglobin 12.0 L ABG Oxyhemoglobin ABG Sodium ABG Potassium ABG Glucose Oxyhemoglobin 88.9 L Sodium Potassium Chloride 107.2 H Carbon Dioxide 34 H BUN 38 H Creatinine 0.7 L Glucose 136 H POC Glucose 128 H Lactic Acid Calcium Phosphorus Magnesium Ferritin Lactate Dehydrogenase C-Reactive Protein NT-Pro-B Natriuret Pep Total Protein Albumin Triglycerides Arterial Blood Glucose Ur Specific [place] Coronavirus (PCR) 03/18/21 03/18/21 03/18/21 11:20 17:35 23:35 WBC RBC Hgb Hct MCV MCHC RDW Plt Count Lymph % (Auto) [place] % (Auto) Lymph # (Auto) [place] # (Auto) Seg Neutrophils % Seg Neuts % (Manual) Lymphocytes % (Manual) Monocytes % (Manual) Nucleated RBC % Seg Neutrophils # Seg Neutrophils # Man Lymphocytes # (Manual) Monocytes # (Manual) PT INR APTT D-Dimer Heparin Anti-Xa Level ABG pH POC ABG pCO2 POC ABG pO2 ABG pO2 70.7 L ABG HCO3 33.6 H ABG O2 Saturation ABG Base Excess 8.0 H ABG Hemoglobin ABG Oxyhemoglobin ABG Sodium ABG Potassium ABG Glucose Oxyhemoglobin 93.7 L Sodium Potassium Chloride Carbon Dioxide BUN Creatinine Glucose POC Glucose 189 H 144 H Lactic Acid Calcium Phosphorus Magnesium Ferritin Lactate Dehydrogenase C-Reactive Protein NT-Pro-B Natriuret Pep Total Protein Albumin Triglycerides Arterial Blood Glucose Ur Specific [place] Coronavirus (PCR) 03/19/21 03/19/21 03/19/21 02:35 04:20 04:20 WBC 14.0 H RBC Hgb Hct MCV MCHC RDW Plt Count Lymph % (Auto) [place] % (Auto) Lymph # (Auto) [place] # (Auto) Seg Neutrophils % Seg Neuts % (Manual) Lymphocytes % (Manual) Monocytes % (Manual) Nucleated RBC % Seg Neutrophils # Seg Neutrophils # Man Lymphocytes # (Manual) Monocytes # (Manual) PT INR APTT D-Dimer Heparin Anti-Xa Level ABG pH POC ABG pCO2 POC ABG pO2 ABG pO2 ABG HCO3 32.0 H ABG O2 Saturation ABG Base Excess 5.2 H ABG Hemoglobin 13.6 L ABG Oxyhemoglobin ABG Sodium ABG Potassium ABG Glucose Oxyhemoglobin 94.6 L Sodium 146 H Potassium Chloride 109.3 H Carbon Dioxide BUN 36 H Creatinine Glucose 203 H POC Glucose Lactic Acid Calcium Phosphorus Magnesium Ferritin Lactate Dehydrogenase C-Reactive Protein NT-Pro-B Natriuret Pep Total Protein Albumin Triglycerides 254 H Arterial Blood Glucose Ur Specific [place] Coronavirus (PCR) 03/19/21 03/19/21 03/19/21 05:45 11:36 23:51 WBC RBC Hgb Hct MCV MCHC RDW Plt Count Lymph % (Auto) [place] % (Auto) Lymph # (Auto) [place] # (Auto) Seg Neutrophils % Seg Neuts % (Manual) Lymphocytes % (Manual) Monocytes % (Manual) Nucleated RBC % Seg Neutrophils # Seg Neutrophils # Man Lymphocytes # (Manual) Monocytes # (Manual) PT INR APTT D-Dimer Heparin Anti-Xa Level ABG pH POC ABG pCO2 POC ABG pO2 ABG pO2 ABG HCO3 ABG O2 Saturation ABG Base Excess ABG Hemoglobin ABG Oxyhemoglobin ABG Sodium ABG Potassium ABG Glucose Oxyhemoglobin Sodium Potassium Chloride Carbon Dioxide BUN Creatinine Glucose POC Glucose 164 H 172 H 140 H Lactic Acid Calcium Phosphorus Magnesium Ferritin Lactate Dehydrogenase C-Reactive Protein NT-Pro-B Natriuret Pep Total Protein Albumin Triglycerides Arterial Blood Glucose Ur Specific [place] Coronavirus (PCR) 03/20/21 03/20/21 03/20/21 03:29 04:45 04:45 WBC RBC Hgb Hct MCV 95 H MCHC RDW 15.7 H Plt Count Lymph % (Auto) [place] % (Auto) Lymph # (Auto) [place] # (Auto) Seg Neutrophils % Seg Neuts % (Manual) Lymphocytes % (Manual) Monocytes % (Manual) Nucleated RBC % Seg Neutrophils # Seg Neutrophils # Man Lymphocytes # (Manual) Monocytes # (Manual) PT INR APTT D-Dimer Heparin Anti-Xa Level ABG pH 7.349 L POC ABG pCO2 POC ABG pO2 ABG pO2 ABG HCO3 33.7 H ABG O2 Saturation ABG Base Excess 6.4 H ABG Hemoglobin 11.8 L ABG Oxyhemoglobin ABG Sodium ABG Potassium ABG Glucose Oxyhemoglobin 93.9 L Sodium 146 H Potassium 5.5 H Chloride 111.1 H Carbon Dioxide BUN 34 H Creatinine 0.7 L Glucose 145 H POC Glucose Lactic Acid Calcium Phosphorus Magnesium 2.50 H Ferritin Lactate Dehydrogenase C-Reactive Protein NT-Pro-B Natriuret Pep Total Protein Albumin Triglycerides Arterial Blood Glucose Ur Specific [place] Coronavirus (PCR) 03/20/21 03/20/21 03/20/21 05:41 09:08 11:54 WBC RBC Hgb Hct MCV MCHC RDW Plt Count Lymph % (Auto) [place] % (Auto) Lymph # (Auto) [place] # (Auto) Seg Neutrophils % Seg Neuts % (Manual) Lymphocytes % (Manual) Monocytes % (Manual) Nucleated RBC % Seg Neutrophils # Seg Neutrophils # Man Lymphocytes # (Manual) Monocytes # (Manual) PT INR APTT D-Dimer Heparin Anti-Xa Level ABG pH POC ABG pCO2 POC ABG pO2 ABG pO2 ABG HCO3 ABG O2 Saturation ABG Base Excess ABG Hemoglobin ABG Oxyhemoglobin ABG Sodium ABG Potassium ABG Glucose Oxyhemoglobin Sodium Potassium Chloride Carbon Dioxide BUN Creatinine Glucose POC Glucose 108 H 132 H 162 H Lactic Acid Calcium Phosphorus Magnesium Ferritin Lactate Dehydrogenase C-Reactive Protein NT-Pro-B Natriuret Pep Total Protein Albumin Triglycerides Arterial Blood Glucose Ur Specific [place] Coronavirus (PCR) 03/20/21 03/21/21 03/21/21 17:28 00:31 04:44 WBC RBC Hgb Hct MCV MCHC RDW Plt Count Lymph % (Auto) [place] % (Auto) Lymph # (Auto) [place] # (Auto) Seg Neutrophils % Seg Neuts % (Manual) Lymphocytes % (Manual) Monocytes % (Manual) Nucleated RBC % Seg Neutrophils # Seg Neutrophils # Man Lymphocytes # (Manual) Monocytes # (Manual) PT INR APTT D-Dimer Heparin Anti-Xa Level ABG pH POC ABG pCO2 POC ABG pO2 ABG pO2 ABG HCO3 ABG O2 Saturation ABG Base Excess ABG Hemoglobin ABG Oxyhemoglobin ABG Sodium ABG Potassium ABG Glucose Oxyhemoglobin Sodium Potassium Chloride 108.3 H Carbon Dioxide BUN 30 H Creatinine 0.7 L Glucose POC Glucose 160 H 122 H Lactic Acid Calcium Phosphorus Magnesium Ferritin Lactate Dehydrogenase C-Reactive Protein NT-Pro-B Natriuret Pep Total Protein Albumin Triglycerides Arterial Blood Glucose Ur Specific [place] Coronavirus (PCR) 03/21/21 03/21/21 03/21/21 09:18 10:09 13:20 WBC RBC Hgb Hct MCV MCHC RDW Plt Count Lymph % (Auto) [place] % (Auto) Lymph # (Auto) [place] # (Auto) Seg Neutrophils % Seg Neuts % (Manual) Lymphocytes % (Manual) Monocytes % (Manual) Nucleated RBC % Seg Neutrophils # Seg Neutrophils # Man Lymphocytes # (Manual) Monocytes # (Manual) PT INR APTT D-Dimer Heparin Anti-Xa Level ABG pH POC ABG pCO2 POC ABG pO2 ABG pO2 60.7 L ABG HCO3 30.6 H ABG O2 Saturation 93.6 L ABG Base Excess 5.3 H ABG Hemoglobin ABG Oxyhemoglobin ABG Sodium ABG Potassium ABG Glucose Oxyhemoglobin 91.7 L Sodium Potassium Chloride Carbon Dioxide BUN Creatinine Glucose POC Glucose 169 H 122 H Lactic Acid Calcium Phosphorus Magnesium Ferritin Lactate Dehydrogenase C-Reactive Protein NT-Pro-B Natriuret Pep Total Protein Albumin Triglycerides Arterial Blood Glucose Ur Specific [place] Coronavirus (PCR) 03/21/21 03/21/21 03/21/21 17:25 22:41 23:52 WBC RBC Hgb Hct MCV MCHC RDW Plt Count Lymph % (Auto) [place] % (Auto) Lymph # (Auto) [place] # (Auto) Seg Neutrophils % Seg Neuts % (Manual) Lymphocytes % (Manual) Monocytes % (Manual) Nucleated RBC % Seg Neutrophils # Seg Neutrophils # Man Lymphocytes # (Manual) Monocytes # (Manual) PT INR APTT D-Dimer Heparin Anti-Xa Level ABG pH POC ABG pCO2 POC ABG pO2 ABG pO2 ABG HCO3 ABG O2 Saturation ABG Base Excess ABG Hemoglobin ABG Oxyhemoglobin ABG Sodium ABG Potassium ABG Glucose Oxyhemoglobin Sodium Potassium Chloride Carbon Dioxide BUN Creatinine Glucose POC Glucose 121 H 139 H 140 H Lactic Acid Calcium Phosphorus Magnesium Ferritin Lactate Dehydrogenase C-Reactive Protein NT-Pro-B Natriuret Pep Total Protein Albumin Triglycerides Arterial Blood Glucose Ur Specific [place] Coronavirus (PCR) 03/22/21 03/22/21 03/22/21 05:58 07:26 07:26 WBC RBC Hgb Hct MCV MCHC 31 L RDW 16.1 H Plt Count Lymph % (Auto) [place] % (Auto) Lymph # (Auto) [place] # (Auto) Seg Neutrophils % Seg Neuts % (Manual) Lymphocytes % (Manual) Monocytes % (Manual) Nucleated RBC % Seg Neutrophils # Seg Neutrophils # Man Lymphocytes # (Manual) Monocytes # (Manual) PT INR APTT D-Dimer Heparin Anti-Xa Level ABG pH POC ABG pCO2 POC ABG pO2 ABG pO2 ABG HCO3 ABG O2 Saturation ABG Base Excess ABG Hemoglobin ABG Oxyhemoglobin ABG Sodium ABG Potassium ABG Glucose Oxyhemoglobin Sodium Potassium Chloride 108.5 H Carbon Dioxide BUN 44 H Creatinine Glucose 120 H POC Glucose 131 H Lactic Acid Calcium Phosphorus 5.80 H Magnesium 2.80 H Ferritin Lactate Dehydrogenase C-Reactive Protein NT-Pro-B Natriuret Pep Total Protein Albumin Triglycerides 305 H Arterial Blood Glucose Ur Specific [place] Coronavirus (PCR) 03/22/21 03/22/21 03/22/21 09:38 11:15 16:01 WBC RBC Hgb Hct MCV MCHC RDW Plt Count Lymph % (Auto) [place] % (Auto) Lymph # (Auto) [place] # (Auto) Seg Neutrophils % Seg Neuts % (Manual) Lymphocytes % (Manual) Monocytes % (Manual) Nucleated RBC % Seg Neutrophils # Seg Neutrophils # Man Lymphocytes # (Manual) Monocytes # (Manual) PT INR APTT D-Dimer Heparin Anti-Xa Level ABG pH POC ABG pCO2 POC ABG pO2 ABG pO2 70.0 L ABG HCO3 30.0 H ABG O2 Saturation 94.6 L ABG Base Excess 3.6 H ABG Hemoglobin 13.5 L ABG Oxyhemoglobin ABG Sodium ABG Potassium ABG Glucose Oxyhemoglobin 92.5 L Sodium Potassium Chloride Carbon Dioxide BUN Creatinine Glucose POC Glucose 186 H 148 H Lactic Acid Calcium Phosphorus Magnesium Ferritin Lactate Dehydrogenase C-Reactive Protein NT-Pro-B Natriuret Pep Total Protein Albumin Triglycerides Arterial Blood Glucose Ur Specific [place] Coronavirus (PCR) 03/22/21 03/22/21 03/23/21 21:13 23:48 07:04 WBC 11.7 H RBC Hgb Hct MCV 95 H MCHC RDW 16.1 H Plt Count Lymph % (Auto) [place] % (Auto) Lymph # (Auto) [place] # (Auto) Seg Neutrophils % Seg Neuts % (Manual) Lymphocytes % (Manual) Monocytes % (Manual) Nucleated RBC % Seg Neutrophils # Seg Neutrophils # Man Lymphocytes # (Manual) Monocytes # (Manual) PT INR APTT D-Dimer Heparin Anti-Xa Level ABG pH POC ABG pCO2 POC ABG pO2 ABG pO2 ABG HCO3 ABG O2 Saturation ABG Base Excess ABG Hemoglobin ABG Oxyhemoglobin ABG Sodium ABG Potassium ABG Glucose Oxyhemoglobin Sodium Potassium Chloride Carbon Dioxide BUN Creatinine Glucose POC Glucose 121 H 114 H Lactic Acid Calcium Phosphorus Magnesium Ferritin Lactate Dehydrogenase C-Reactive Protein NT-Pro-B Natriuret Pep Total Protein Albumin Triglycerides Arterial Blood Glucose Ur Specific [place] Coronavirus (PCR) 03/23/21 03/23/21 03/23/21 07:04 08:35 11:19 WBC RBC Hgb Hct MCV MCHC RDW Plt Count Lymph % (Auto) [place] % (Auto) Lymph # (Auto) [place] # (Auto) Seg Neutrophils % Seg Neuts % (Manual) Lymphocytes % (Manual) Monocytes % (Manual) Nucleated RBC % Seg Neutrophils # Seg Neutrophils # Man Lymphocytes # (Manual) Monocytes # (Manual) PT INR APTT D-Dimer Heparin Anti-Xa Level ABG pH 7.345 L POC ABG pCO2 POC ABG pO2 ABG pO2 167.9 H ABG HCO3 32.2 H ABG O2 Saturation ABG Base Excess 4.8 H ABG Hemoglobin 13.4 L ABG Oxyhemoglobin ABG Sodium ABG Potassium ABG Glucose Oxyhemoglobin Sodium 148 H Potassium Chloride 111.3 H Carbon Dioxide 31 H BUN 31 H Creatinine Glucose 131 H POC Glucose 165 H Lactic Acid Calcium Phosphorus Magnesium 2.50 H Ferritin Lactate Dehydrogenase C-Reactive Protein NT-Pro-B Natriuret Pep Total Protein Albumin Triglycerides Arterial Blood Glucose Ur Specific [place] Coronavirus (PCR) 03/23/21 03/23/21 03/24/21 16:48 20:52 00:07 WBC RBC Hgb Hct MCV MCHC RDW Plt Count Lymph % (Auto) [place] % (Auto) Lymph # (Auto) [place] # (Auto) Seg Neutrophils % Seg Neuts % (Manual) Lymphocytes % (Manual) Monocytes % (Manual) Nucleated RBC % Seg Neutrophils # Seg Neutrophils # Man Lymphocytes # (Manual) Monocytes # (Manual) PT INR APTT D-Dimer Heparin Anti-Xa Level ABG pH POC ABG pCO2 POC ABG pO2 ABG pO2 ABG HCO3 ABG O2 Saturation ABG Base Excess ABG Hemoglobin ABG Oxyhemoglobin ABG Sodium ABG Potassium ABG Glucose Oxyhemoglobin Sodium Potassium Chloride Carbon Dioxide BUN Creatinine Glucose POC Glucose 160 H 127 H 147 H Lactic Acid Calcium Phosphorus Magnesium Ferritin Lactate Dehydrogenase C-Reactive Protein NT-Pro-B Natriuret Pep Total Protein Albumin Triglycerides Arterial Blood Glucose Ur Specific [place] Coronavirus (PCR) 03/24/21 03/24/21 03/24/21 04:34 04:34 05:20 WBC 13.3 H RBC Hgb Hct MCV MCHC 31 L RDW 16.1 H Plt Count Lymph % (Auto) [place] % (Auto) Lymph # (Auto) [place] # (Auto) Seg Neutrophils % Seg Neuts % (Manual) Lymphocytes % (Manual) Monocytes % (Manual) Nucleated RBC % Seg Neutrophils # Seg Neutrophils # Man Lymphocytes # (Manual) Monocytes # (Manual) PT INR APTT D-Dimer Heparin Anti-Xa Level ABG pH POC ABG pCO2 POC ABG pO2 ABG pO2 ABG HCO3 ABG O2 Saturation ABG Base Excess ABG Hemoglobin ABG Oxyhemoglobin ABG Sodium ABG Potassium ABG Glucose Oxyhemoglobin Sodium Potassium 5.2 H Chloride Carbon Dioxide BUN 28 H Creatinine 0.7 L Glucose 152 H POC Glucose 141 H Lactic Acid Calcium Phosphorus Magnesium Ferritin Lactate Dehydrogenase C-Reactive Protein NT-Pro-B Natriuret Pep Total Protein Albumin Triglycerides Arterial Blood Glucose Ur Specific [place] Coronavirus (PCR) 03/24/21 03/24/21 03/24/21 09:40 11:38 16:45 WBC RBC Hgb Hct MCV MCHC RDW Plt Count Lymph % (Auto) [place] % (Auto) Lymph # (Auto) [place] # (Auto) Seg Neutrophils % Seg Neuts % (Manual) Lymphocytes % (Manual) Monocytes % (Manual) Nucleated RBC % Seg Neutrophils # Seg Neutrophils # Man Lymphocytes # (Manual) Monocytes # (Manual) PT INR APTT D-Dimer Heparin Anti-Xa Level ABG pH POC ABG pCO2 POC ABG pO2 ABG pO2 ABG HCO3 ABG O2 Saturation ABG Base Excess ABG Hemoglobin ABG Oxyhemoglobin ABG Sodium ABG Potassium ABG Glucose Oxyhemoglobin Sodium Potassium Chloride Carbon Dioxide BUN Creatinine Glucose POC Glucose 126 H 136 H 118 H Lactic Acid Calcium Phosphorus Magnesium Ferritin Lactate Dehydrogenase C-Reactive Protein NT-Pro-B Natriuret Pep Total Protein Albumin Triglycerides Arterial Blood Glucose Ur Specific [place] Coronavirus (PCR) 03/24/21 03/24/21 03/25/21 21:03 23:49 04:32 WBC RBC Hgb Hct MCV MCHC RDW 16.1 H Plt Count 121 L Lymph % (Auto) [place] % (Auto) Lymph # (Auto) [place] # (Auto) Seg Neutrophils % Seg Neuts % (Manual) Lymphocytes % (Manual) Monocytes % (Manual) Nucleated RBC % Seg Neutrophils # Seg Neutrophils # Man Lymphocytes # (Manual) Monocytes # (Manual) PT INR APTT D-Dimer Heparin Anti-Xa Level ABG pH POC ABG pCO2 POC ABG pO2 ABG pO2 ABG HCO3 ABG O2 Saturation ABG Base Excess ABG Hemoglobin ABG Oxyhemoglobin ABG Sodium ABG Potassium ABG Glucose Oxyhemoglobin Sodium Potassium Chloride Carbon Dioxide BUN Creatinine Glucose POC Glucose 116 H 125 H Lactic Acid Calcium Phosphorus Magnesium Ferritin Lactate Dehydrogenase C-Reactive Protein NT-Pro-B Natriuret Pep Total Protein Albumin Triglycerides Arterial Blood Glucose Ur Specific [place] Coronavirus (PCR) 03/25/21 03/25/21 03/25/21 04:32 05:21 09:29 WBC RBC Hgb Hct MCV MCHC RDW Plt Count Lymph % (Auto) [place] % (Auto) Lymph # (Auto) [place] # (Auto) Seg Neutrophils % Seg Neuts % (Manual) Lymphocytes % (Manual) Monocytes % (Manual) Nucleated RBC % Seg Neutrophils # Seg Neutrophils # Man Lymphocytes # (Manual) Monocytes # (Manual) PT INR APTT D-Dimer Heparin Anti-Xa Level ABG pH POC ABG pCO2 POC ABG pO2 ABG pO2 ABG HCO3 ABG O2 Saturation ABG Base Excess ABG Hemoglobin ABG Oxyhemoglobin ABG Sodium ABG Potassium ABG Glucose Oxyhemoglobin Sodium 135 L D Potassium Chloride Carbon Dioxide BUN 25 H Creatinine 0.7 L Glucose 168 H POC Glucose 149 H 115 H Lactic Acid Calcium Phosphorus Magnesium Ferritin Lactate Dehydrogenase C-Reactive Protein NT-Pro-B Natriuret Pep Total Protein Albumin Triglycerides Arterial Blood Glucose Ur Specific [place] Coronavirus (PCR) 03/25/21 03/25/21 03/25/21 12:26 12:35 23:53 WBC RBC Hgb Hct MCV MCHC RDW Plt Count Lymph % (Auto) [place] % (Auto) Lymph # (Auto) [place] # (Auto) Seg Neutrophils % Seg Neuts % (Manual) Lymphocytes % (Manual) Monocytes % (Manual) Nucleated RBC % Seg Neutrophils # Seg Neutrophils # Man Lymphocytes # (Manual) Monocytes # (Manual) PT INR APTT D-Dimer Heparin Anti-Xa Level ABG pH POC ABG pCO2 POC ABG pO2 ABG pO2 100.5 H ABG HCO3 33.6 H ABG O2 Saturation ABG Base Excess 6.4 H ABG Hemoglobin 12.0 L ABG Oxyhemoglobin ABG Sodium ABG Potassium ABG Glucose Oxyhemoglobin Sodium Potassium Chloride Carbon Dioxide BUN Creatinine Glucose POC Glucose 108 H 137 H Lactic Acid Calcium Phosphorus Magnesium Ferritin Lactate Dehydrogenase C-Reactive Protein NT-Pro-B Natriuret Pep Total Protein Albumin Triglycerides Arterial Blood Glucose Ur Specific [place] Coronavirus (PCR) 03/26/21 03/26/21 03/26/21 05:14 07:09 07:09 WBC RBC Hgb Hct MCV MCHC RDW 16.5 H Plt Count 139 L Lymph % (Auto) [place] % (Auto) Lymph # (Auto) [place] # (Auto) Seg Neutrophils % Seg Neuts % (Manual) Lymphocytes % (Manual) Monocytes % (Manual) Nucleated RBC % Seg Neutrophils # Seg Neutrophils # Man Lymphocytes # (Manual) Monocytes # (Manual) PT INR APTT D-Dimer Heparin Anti-Xa Level ABG pH POC ABG pCO2 POC ABG pO2 ABG pO2 ABG HCO3 ABG O2 Saturation ABG Base Excess ABG Hemoglobin ABG Oxyhemoglobin ABG Sodium ABG Potassium ABG Glucose Oxyhemoglobin Sodium Potassium Chloride Carbon Dioxide BUN 22 H Creatinine 0.7 L Glucose 108 H POC Glucose 116 H Lactic Acid Calcium Phosphorus Magnesium Ferritin Lactate Dehydrogenase C-Reactive Protein NT-Pro-B Natriuret Pep Total Protein Albumin Triglycerides Arterial Blood Glucose Ur Specific [place] Coronavirus (PCR) 03/26/21 03/26/21 03/26/21 09:51 11:15 16:59 WBC RBC Hgb Hct MCV MCHC RDW Plt Count Lymph % (Auto) [place] % (Auto) Lymph # (Auto) [place] # (Auto) Seg Neutrophils % Seg Neuts % (Manual) Lymphocytes % (Manual) Monocytes % (Manual) Nucleated RBC % Seg Neutrophils # Seg Neutrophils # Man Lymphocytes # (Manual) Monocytes # (Manual) PT INR APTT D-Dimer Heparin Anti-Xa Level ABG pH POC ABG pCO2 POC ABG pO2 ABG pO2 ABG HCO3 ABG O2 Saturation ABG Base Excess ABG Hemoglobin ABG Oxyhemoglobin ABG Sodium ABG Potassium ABG Glucose Oxyhemoglobin Sodium Potassium Chloride Carbon Dioxide BUN Creatinine Glucose POC Glucose 107 H 119 H 174 H Lactic Acid Calcium Phosphorus Magnesium Ferritin Lactate Dehydrogenase C-Reactive Protein NT-Pro-B Natriuret Pep Total Protein Albumin Triglycerides Arterial Blood Glucose Ur Specific [place] Coronavirus (PCR) 03/26/21 03/27/21 03/27/21 22:18 07:08 10:28 WBC RBC Hgb Hct MCV 95 H MCHC RDW 16.2 H Plt Count 134 L Lymph % (Auto) [place] % (Auto) Lymph # (Auto) [place] # (Auto) Seg Neutrophils % Seg Neuts % (Manual) Lymphocytes % (Manual) Monocytes % (Manual) Nucleated RBC % Seg Neutrophils # Seg Neutrophils # Man Lymphocytes # (Manual) Monocytes # (Manual) PT INR APTT D-Dimer Heparin Anti-Xa Level ABG pH POC ABG pCO2 POC ABG pO2 ABG pO2 ABG HCO3 ABG O2 Saturation ABG Base Excess ABG Hemoglobin ABG Oxyhemoglobin ABG Sodium ABG Potassium ABG Glucose Oxyhemoglobin Sodium Potassium Chloride Carbon Dioxide BUN Creatinine Glucose POC Glucose 107 H 52 L Lactic Acid Calcium Phosphorus Magnesium Ferritin Lactate Dehydrogenase C-Reactive Protein NT-Pro-B Natriuret Pep Total Protein Albumin Triglycerides Arterial Blood Glucose Ur Specific [place] Coronavirus (PCR) 03/27/21 03/27/21 03/27/21 10:28 11:45 17:39 WBC RBC Hgb Hct MCV MCHC RDW Plt Count Lymph % (Auto) [place] % (Auto) Lymph # (Auto) [place] # (Auto) Seg Neutrophils % Seg Neuts % (Manual) Lymphocytes % (Manual) Monocytes % (Manual) Nucleated RBC % Seg Neutrophils # Seg Neutrophils # Man Lymphocytes # (Manual) Monocytes # (Manual) PT INR APTT D-Dimer Heparin Anti-Xa Level ABG pH POC ABG pCO2 POC ABG pO2 ABG pO2 ABG HCO3 ABG O2 Saturation ABG Base Excess ABG Hemoglobin ABG Oxyhemoglobin ABG Sodium ABG Potassium ABG Glucose Oxyhemoglobin Sodium 136 L Potassium Chloride Carbon Dioxide BUN Creatinine 0.7 L Glucose 150 H POC Glucose 121 H 165 H Lactic Acid Calcium Phosphorus Magnesium Ferritin Lactate Dehydrogenase C-Reactive Protein NT-Pro-B Natriuret Pep Total Protein Albumin Triglycerides Arterial Blood Glucose Ur Specific [place] Coronavirus (PCR) 03/28/21 03/28/21 03/28/21 07:14 11:42 18:22 WBC RBC Hgb Hct MCV MCHC RDW 16.4 H Plt Count Lymph % (Auto) [place] % (Auto) Lymph # (Auto) [place] # (Auto) Seg Neutrophils % Seg Neuts % (Manual) Lymphocytes % (Manual) Monocytes % (Manual) Nucleated RBC % Seg Neutrophils # Seg Neutrophils # Man Lymphocytes # (Manual) Monocytes # (Manual) PT INR APTT D-Dimer Heparin Anti-Xa Level ABG pH POC ABG pCO2 POC ABG pO2 ABG pO2 ABG HCO3 ABG O2 Saturation ABG Base Excess ABG Hemoglobin ABG Oxyhemoglobin ABG Sodium ABG Potassium ABG Glucose Oxyhemoglobin Sodium Potassium Chloride Carbon Dioxide BUN Creatinine Glucose POC Glucose 145 H 169 H Lactic Acid Calcium Phosphorus Magnesium Ferritin Lactate Dehydrogenase C-Reactive Protein NT-Pro-B Natriuret Pep Total Protein Albumin Triglycerides Arterial Blood Glucose Ur Specific [place] Coronavirus (PCR) 03/28/21 03/29/21 03/29/21 23:39 04:50 04:50 WBC RBC Hgb 11.0 L Hct 34.9 L MCV MCHC RDW 15.9 H Plt Count Lymph % (Auto) [place] % (Auto) Lymph # (Auto) [place] # (Auto) Seg Neutrophils % Seg Neuts % (Manual) Lymphocytes % (Manual) Monocytes % (Manual) Nucleated RBC % Seg Neutrophils # Seg Neutrophils # Man Lymphocytes # (Manual) Monocytes # (Manual) PT INR APTT D-Dimer Heparin Anti-Xa Level ABG pH POC ABG pCO2 POC ABG pO2 ABG pO2 ABG HCO3 ABG O2 Saturation ABG Base Excess ABG Hemoglobin ABG Oxyhemoglobin ABG Sodium ABG Potassium ABG Glucose Oxyhemoglobin Sodium Potassium Chloride Carbon Dioxide 34 H BUN Creatinine 0.6 L Glucose 152 H POC Glucose 139 H Lactic Acid Calcium Phosphorus Magnesium Ferritin Lactate Dehydrogenase C-Reactive Protein NT-Pro-B Natriuret Pep Total Protein Albumin Triglycerides Arterial Blood Glucose Ur Specific [place] Coronavirus (PCR) 03/29/21 03/29/21 03/29/21 05:25 11:34 18:02 WBC RBC Hgb Hct MCV MCHC RDW Plt Count Lymph % (Auto) [place] % (Auto) Lymph # (Auto) [place] # (Auto) Seg Neutrophils % Seg Neuts % (Manual) Lymphocytes % (Manual) Monocytes % (Manual) Nucleated RBC % Seg Neutrophils # Seg Neutrophils # Man Lymphocytes # (Manual) Monocytes # (Manual) PT INR APTT D-Dimer Heparin Anti-Xa Level ABG pH POC ABG pCO2 POC ABG pO2 ABG pO2 ABG HCO3 ABG O2 Saturation ABG Base Excess ABG Hemoglobin ABG Oxyhemoglobin ABG Sodium ABG Potassium ABG Glucose Oxyhemoglobin Sodium Potassium Chloride Carbon Dioxide BUN Creatinine Glucose POC Glucose 127 H 169 H 173 H Lactic Acid Calcium Phosphorus Magnesium Ferritin Lactate Dehydrogenase C-Reactive Protein NT-Pro-B Natriuret Pep Total Protein Albumin Triglycerides Arterial Blood Glucose Ur Specific [place] Coronavirus (PCR) 03/29/21 03/30/21 03/30/21 21:42 00:01 05:36 WBC RBC Hgb Hct MCV MCHC RDW 16.7 H Plt Count Lymph % (Auto) [place] % (Auto) Lymph # (Auto) [place] # (Auto) Seg Neutrophils % Seg Neuts % (Manual) Lymphocytes % (Manual) Monocytes % (Manual) Nucleated RBC % Seg Neutrophils # Seg Neutrophils # Man Lymphocytes # (Manual) Monocytes # (Manual) PT INR APTT D-Dimer Heparin Anti-Xa Level ABG pH POC ABG pCO2 POC ABG pO2 ABG pO2 ABG HCO3 ABG O2 Saturation ABG Base Excess ABG Hemoglobin ABG Oxyhemoglobin ABG Sodium ABG Potassium ABG Glucose Oxyhemoglobin Sodium Potassium Chloride Carbon Dioxide BUN Creatinine Glucose POC Glucose 184 H 161 H Lactic Acid Calcium Phosphorus Magnesium Ferritin Lactate Dehydrogenase C-Reactive Protein NT-Pro-B Natriuret Pep Total Protein Albumin Triglycerides Arterial Blood Glucose Ur Specific [place] Coronavirus (PCR) 03/30/21 03/30/21 03/30/21 05:36 06:03 11:32 WBC RBC Hgb Hct MCV MCHC RDW Plt Count Lymph % (Auto) [place] % (Auto) Lymph # (Auto) [place] # (Auto) Seg Neutrophils % Seg Neuts % (Manual) Lymphocytes % (Manual) Monocytes % (Manual) Nucleated RBC % Seg Neutrophils # Seg Neutrophils # Man Lymphocytes # (Manual) Monocytes # (Manual) PT INR APTT D-Dimer Heparin Anti-Xa Level ABG pH POC ABG pCO2 POC ABG pO2 ABG pO2 ABG HCO3 ABG O2 Saturation ABG Base Excess ABG Hemoglobin ABG Oxyhemoglobin ABG Sodium ABG Potassium ABG Glucose Oxyhemoglobin Sodium Potassium Chloride Carbon Dioxide BUN Creatinine 0.5 L Glucose 127 H POC Glucose 130 H 183 H Lactic Acid Calcium Phosphorus Magnesium Ferritin Lactate Dehydrogenase C-Reactive Protein NT-Pro-B Natriuret Pep Total Protein Albumin Triglycerides Arterial Blood Glucose Ur Specific [place] Coronavirus (PCR) 03/30/21 03/30/21 03/30/21 15:00 16:23 21:07 WBC RBC Hgb Hct MCV MCHC RDW Plt Count Lymph % (Auto) [place] % (Auto) Lymph # (Auto) [place] # (Auto) Seg Neutrophils % Seg Neuts % (Manual) Lymphocytes % (Manual) Monocytes % (Manual) Nucleated RBC % Seg Neutrophils # Seg Neutrophils # Man Lymphocytes # (Manual) Monocytes # (Manual) PT INR APTT D-Dimer Heparin Anti-Xa Level ABG pH POC ABG pCO2 POC ABG pO2 ABG pO2 67.2 L ABG HCO3 34.9 H ABG O2 Saturation ABG Base Excess 9.1 H ABG Hemoglobin 11.6 L ABG Oxyhemoglobin ABG Sodium ABG Potassium ABG Glucose Oxyhemoglobin 93.0 L Sodium Potassium Chloride Carbon Dioxide BUN Creatinine Glucose POC Glucose 162 H 146 H Lactic Acid Calcium Phosphorus Magnesium Ferritin Lactate Dehydrogenase C-Reactive Protein NT-Pro-B Natriuret Pep Total Protein Albumin Triglycerides Arterial Blood Glucose Ur Specific [place] Coronavirus (PCR) 03/30/21 03/31/21 03/31/21 23:23 05:44 11:19 WBC RBC Hgb Hct MCV MCHC RDW Plt Count Lymph % (Auto) [place] % (Auto) Lymph # (Auto) [place] # (Auto) Seg Neutrophils % Seg Neuts % (Manual) Lymphocytes % (Manual) Monocytes % (Manual) Nucleated RBC % Seg Neutrophils # Seg Neutrophils # Man Lymphocytes # (Manual) Monocytes # (Manual) PT INR APTT D-Dimer Heparin Anti-Xa Level ABG pH POC ABG pCO2 POC ABG pO2 ABG pO2 ABG HCO3 ABG O2 Saturation ABG Base Excess ABG Hemoglobin ABG Oxyhemoglobin ABG Sodium ABG Potassium ABG Glucose Oxyhemoglobin Sodium Potassium Chloride Carbon Dioxide BUN Creatinine Glucose POC Glucose 138 H 180 H 178 H Lactic Acid Calcium Phosphorus Magnesium Ferritin Lactate Dehydrogenase C-Reactive Protein NT-Pro-B Natriuret Pep Total Protein Albumin Triglycerides Arterial Blood Glucose Ur Specific [place] Coronavirus (PCR) 03/31/21 03/31/21 03/31/21 12:50 13:30 16:06 WBC RBC Hgb 11.3 L Hct 35.1 L MCV MCHC RDW 16.5 H Plt Count Lymph % (Auto) 7.6 L [place] % (Auto) 9.5 H Lymph # (Auto) 0.6 L [place] # (Auto) Seg Neutrophils % 78.3 H Seg Neuts % (Manual) Lymphocytes % (Manual) Monocytes % (Manual) Nucleated RBC % Seg Neutrophils # Seg Neutrophils # Man Lymphocytes # (Manual) Monocytes # (Manual) PT INR APTT D-Dimer Heparin Anti-Xa Level ABG pH POC ABG pCO2 POC ABG pO2 ABG pO2 99.4 H ABG HCO3 34.9 H ABG O2 Saturation ABG Base Excess 8.4 H ABG Hemoglobin 11.8 L ABG Oxyhemoglobin ABG Sodium ABG Potassium ABG Glucose Oxyhemoglobin Sodium Potassium Chloride Carbon Dioxide BUN Creatinine Glucose POC Glucose 197 H Lactic Acid Calcium Phosphorus Magnesium Ferritin Lactate Dehydrogenase C-Reactive Protein NT-Pro-B Natriuret Pep Total Protein Albumin Triglycerides Arterial Blood Glucose Ur Specific [place] Coronavirus (PCR) 03/31/21 04/01/21 04/01/21 20:51 05:37 07:16 WBC RBC 3.39 L Hgb 10.5 L Hct 31.6 L MCV MCHC RDW 16.1 H Plt Count Lymph % (Auto) [place] % (Auto) Lymph # (Auto) [place] # (Auto) Seg Neutrophils % Seg Neuts % (Manual) Lymphocytes % (Manual) Monocytes % (Manual) Nucleated RBC % Seg Neutrophils # Seg Neutrophils # Man Lymphocytes # (Manual) Monocytes # (Manual) PT INR APTT D-Dimer Heparin Anti-Xa Level ABG pH POC ABG pCO2 POC ABG pO2 ABG pO2 ABG HCO3 ABG O2 Saturation ABG Base Excess ABG Hemoglobin ABG Oxyhemoglobin ABG Sodium ABG Potassium ABG Glucose Oxyhemoglobin Sodium Potassium Chloride Carbon Dioxide BUN Creatinine Glucose POC Glucose 140 H 128 H Lactic Acid Calcium Phosphorus Magnesium Ferritin Lactate Dehydrogenase C-Reactive Protein NT-Pro-B Natriuret Pep Total Protein Albumin Triglycerides Arterial Blood Glucose Ur Specific [place] Coronavirus (PCR) 04/01/21 04/01/21 04/01/21 07:16 11:52 16:56 WBC RBC Hgb Hct MCV MCHC RDW Plt Count Lymph % (Auto) [place] % (Auto) Lymph # (Auto) [place] # (Auto) Seg Neutrophils % Seg Neuts % (Manual) Lymphocytes % (Manual) Monocytes % (Manual) Nucleated RBC % Seg Neutrophils # Seg Neutrophils # Man Lymphocytes # (Manual) Monocytes # (Manual) PT INR APTT D-Dimer Heparin Anti-Xa Level ABG pH POC ABG pCO2 POC ABG pO2 ABG pO2 ABG HCO3 ABG O2 Saturation ABG Base Excess ABG Hemoglobin ABG Oxyhemoglobin ABG Sodium ABG Potassium ABG Glucose Oxyhemoglobin Sodium Potassium Chloride Carbon Dioxide BUN Creatinine 0.6 L Glucose 131 H POC Glucose 182 H 179 H Lactic Acid Calcium 8.3 L Phosphorus Magnesium Ferritin Lactate Dehydrogenase C-Reactive Protein NT-Pro-B Natriuret Pep Total Protein Albumin Triglycerides Arterial Blood Glucose Ur Specific [place] Coronavirus (PCR) 04/01/21 04/01/2104/02/22 21:30 23:40 04:26 WBC RBC 3.62 L Hgb 10.8 L Hct 33.9 L MCV MCHC RDW 16.0 H Plt Count Lymph % (Auto) [place] % (Auto) Lymph # (Auto) [place] # (Auto) Seg Neutrophils % Seg Neuts % (Manual) Lymphocytes % (Manual) Monocytes % (Manual) Nucleated RBC % Seg Neutrophils # Seg Neutrophils # Man Lymphocytes # (Manual) Monocytes # (Manual) PT INR APTT D-Dimer Heparin Anti-Xa Level ABG pH POC ABG pCO2 POC ABG pO2 ABG pO2 ABG HCO3 ABG O2 Saturation ABG Base Excess ABG Hemoglobin ABG Oxyhemoglobin ABG Sodium ABG Potassium ABG Glucose Oxyhemoglobin Sodium Potassium Chloride Carbon Dioxide BUN Creatinine Glucose POC Glucose 131 H 129 H Lactic Acid Calcium Phosphorus Magnesium Ferritin Lactate Dehydrogenase C-Reactive Protein NT-Pro-B Natriuret Pep Total Protein Albumin Triglycerides Arterial Blood Glucose Ur Specific [place] Coronavirus (PCR) 04/02/21 04/02/21 04/02/21 04:26 05:54 11:35 WBC RBC Hgb Hct MCV MCHC RDW Plt Count Lymph % (Auto) [place] % (Auto) Lymph # (Auto) [place] # (Auto) Seg Neutrophils % Seg Neuts % (Manual) Lymphocytes % (Manual) Monocytes % (Manual) Nucleated RBC % Seg Neutrophils # Seg Neutrophils # Man Lymphocytes # (Manual) Monocytes # (Manual) PT INR APTT D-Dimer Heparin Anti-Xa Level ABG pH POC ABG pCO2 POC ABG pO2 ABG pO2 ABG HCO3 ABG O2 Saturation ABG Base Excess ABG Hemoglobin ABG Oxyhemoglobin ABG Sodium ABG Potassium ABG Glucose Oxyhemoglobin Sodium 136 L Potassium Chloride Carbon Dioxide BUN Creatinine 0.6 L Glucose 152 H POC Glucose 151 H 178 H Lactic Acid Calcium Phosphorus Magnesium Ferritin Lactate Dehydrogenase C-Reactive Protein NT-Pro-B Natriuret Pep Total Protein Albumin Triglycerides Arterial Blood Glucose Ur Specific [place] Coronavirus (PCR) 04/02/21 04/02/21 04/02/21 16:11 21:09 23:38 WBC RBC Hgb Hct MCV MCHC RDW Plt Count Lymph % (Auto) [place] % (Auto) Lymph # (Auto) [place] # (Auto) Seg Neutrophils % Seg Neuts % (Manual) Lymphocytes % (Manual) Monocytes % (Manual) Nucleated RBC % Seg Neutrophils # Seg Neutrophils # Man Lymphocytes # (Manual) Monocytes # (Manual) PT INR APTT D-Dimer Heparin Anti-Xa Level ABG pH POC ABG pCO2 POC ABG pO2 ABG pO2 ABG HCO3 ABG O2 Saturation ABG Base Excess ABG Hemoglobin ABG Oxyhemoglobin ABG Sodium ABG Potassium ABG Glucose Oxyhemoglobin Sodium Potassium Chloride Carbon Dioxide BUN Creatinine Glucose POC Glucose 186 H 145 H 152 H Lactic Acid Calcium Phosphorus Magnesium Ferritin Lactate Dehydrogenase C-Reactive Protein NT-Pro-B Natriuret Pep Total Protein Albumin Triglycerides Arterial Blood Glucose Ur Specific [place] Coronavirus (PCR) 04/03/21 04/03/21 04/03/21 04:14 04:14 05:27 WBC RBC 3.62 L Hgb 11.0 L Hct 34.0 L MCV MCHC RDW 16.3 H Plt Count Lymph % (Auto) [place] % (Auto) Lymph # (Auto) [place] # (Auto) Seg Neutrophils % Seg Neuts % (Manual) Lymphocytes % (Manual) Monocytes % (Manual) Nucleated RBC % Seg Neutrophils # Seg Neutrophils # Man Lymphocytes # (Manual) Monocytes # (Manual) PT INR APTT D-Dimer Heparin Anti-Xa Level ABG pH POC ABG pCO2 POC ABG pO2 ABG pO2 ABG HCO3 ABG O2 Saturation ABG Base Excess ABG Hemoglobin ABG Oxyhemoglobin ABG Sodium ABG Potassium ABG Glucose Oxyhemoglobin Sodium Potassium Chloride Carbon Dioxide 31 H BUN Creatinine 0.6 L Glucose 155 H POC Glucose 165 H Lactic Acid Calcium Phosphorus Magnesium Ferritin Lactate Dehydrogenase C-Reactive Protein NT-Pro-B Natriuret Pep Total Protein Albumin Triglycerides Arterial Blood Glucose Ur Specific [place] Coronavirus (PCR) 04/03/21 04/03/21 04/03/21 11:02 16:19 19:45 WBC RBC Hgb Hct MCV MCHC RDW Plt Count Lymph % (Auto) [place] % (Auto) Lymph # (Auto) [place] # (Auto) Seg Neutrophils % Seg Neuts % (Manual) Lymphocytes % (Manual) Monocytes % (Manual) Nucleated RBC % Seg Neutrophils # Seg Neutrophils # Man Lymphocytes # (Manual) Monocytes # (Manual) PT INR APTT D-Dimer Heparin Anti-Xa Level ABG pH POC ABG pCO2 POC ABG pO2 ABG pO2 ABG HCO3 ABG O2 Saturation ABG Base Excess ABG Hemoglobin ABG Oxyhemoglobin ABG Sodium ABG Potassium ABG Glucose Oxyhemoglobin Sodium Potassium Chloride Carbon Dioxide BUN Creatinine Glucose POC Glucose 161 H 180 H 136 H Lactic Acid Calcium Phosphorus Magnesium Ferritin Lactate Dehydrogenase C-Reactive Protein NT-Pro-B Natriuret Pep Total Protein Albumin Triglycerides Arterial Blood Glucose Ur Specific [place] Coronavirus (PCR) 04/04/21 04/04/21 04/04/21 00:21 04:33 04:33 WBC 13.1 H RBC 3.49 L Hgb 10.3 L Hct 32.7 L MCV MCHC RDW 16.1 H Plt Count Lymph % (Auto) [place] % (Auto) Lymph # (Auto) [place] # (Auto) Seg Neutrophils % Seg Neuts % (Manual) Lymphocytes % (Manual) Monocytes % (Manual) Nucleated RBC % Seg Neutrophils # Seg Neutrophils # Man Lymphocytes # (Manual) Monocytes # (Manual) PT INR APTT D-Dimer Heparin Anti-Xa Level ABG pH POC ABG pCO2 POC ABG pO2 ABG pO2 ABG HCO3 ABG O2 Saturation ABG Base Excess ABG Hemoglobin ABG Oxyhemoglobin ABG Sodium ABG Potassium ABG Glucose Oxyhemoglobin Sodium Potassium Chloride Carbon Dioxide 31 H BUN Creatinine 0.4 L Glucose 153 H POC Glucose 140 H Lactic Acid Calcium Phosphorus Magnesium Ferritin Lactate Dehydrogenase C-Reactive Protein NT-Pro-B Natriuret Pep Total Protein Albumin Triglycerides Arterial Blood Glucose Ur Specific [place] Coronavirus (PCR) 04/04/21 04/04/21 04/04/21 05:16 11:39 17:22 WBC RBC Hgb Hct MCV MCHC RDW Plt Count Lymph % (Auto) [place] % (Auto) Lymph # (Auto) [place] # (Auto) Seg Neutrophils % Seg Neuts % (Manual) Lymphocytes % (Manual) Monocytes % (Manual) Nucleated RBC % Seg Neutrophils # Seg Neutrophils # Man Lymphocytes # (Manual) Monocytes # (Manual) PT INR APTT D-Dimer Heparin Anti-Xa Level ABG pH POC ABG pCO2 POC ABG pO2 ABG pO2 ABG HCO3 ABG O2 Saturation ABG Base Excess ABG Hemoglobin ABG Oxyhemoglobin ABG Sodium ABG Potassium ABG Glucose Oxyhemoglobin Sodium Potassium Chloride Carbon Dioxide BUN Creatinine Glucose POC Glucose 152 H 154 H 198 H Lactic Acid Calcium Phosphorus Magnesium Ferritin Lactate Dehydrogenase C-Reactive Protein NT-Pro-B Natriuret Pep Total Protein Albumin Triglycerides Arterial Blood Glucose Ur Specific [place] Coronavirus (PCR) 04/04/21 04/04/2122 20:14 23:16 04:15 WBC RBC 3.21 L Hgb 10.0 L Hct 30.3 L MCV MCHC RDW 16.4 H Plt Count Lymph % (Auto) [place] % (Auto) Lymph # (Auto) [place] # (Auto) Seg Neutrophils % Seg Neuts % (Manual) Lymphocytes % (Manual) Monocytes % (Manual) Nucleated RBC % Seg Neutrophils # Seg Neutrophils # Man Lymphocytes # (Manual) Monocytes # (Manual) PT INR APTT D-Dimer Heparin Anti-Xa Level ABG pH POC ABG pCO2 POC ABG pO2 ABG pO2 ABG HCO3 ABG O2 Saturation ABG Base Excess ABG Hemoglobin ABG Oxyhemoglobin ABG Sodium ABG Potassium ABG Glucose Oxyhemoglobin Sodium Potassium Chloride Carbon Dioxide BUN Creatinine Glucose POC Glucose 161 H 139 H Lactic Acid Calcium Phosphorus Magnesium Ferritin Lactate Dehydrogenase C-Reactive Protein NT-Pro-B Natriuret Pep Total Protein Albumin Triglycerides Arterial Blood Glucose Ur Specific [place] Coronavirus (PCR) 04/05/21 04/05/21 04/05/21 04:15 05:34 12:09 WBC RBC Hgb Hct MCV MCHC RDW Plt Count Lymph % (Auto) [place] % (Auto) Lymph # (Auto) [place] # (Auto) Seg Neutrophils % Seg Neuts % (Manual) Lymphocytes % (Manual) Monocytes % (Manual) Nucleated RBC % Seg Neutrophils # Seg Neutrophils # Man Lymphocytes # (Manual) Monocytes # (Manual) PT INR APTT D-Dimer Heparin Anti-Xa Level ABG pH POC ABG pCO2 POC ABG pO2 ABG pO2 ABG HCO3 ABG O2 Saturation ABG Base Excess ABG Hemoglobin ABG Oxyhemoglobin ABG Sodium ABG Potassium ABG Glucose Oxyhemoglobin Sodium Potassium Chloride 97.6 L Carbon Dioxide 32 H BUN Creatinine 0.5 L Glucose 147 H POC Glucose 145 H 173 H Lactic Acid Calcium Phosphorus Magnesium Ferritin Lactate Dehydrogenase C-Reactive Protein NT-Pro-B Natriuret Pep Total Protein Albumin Triglycerides Arterial Blood Glucose Ur Specific [place] Coronavirus (PCR) 04/05/21 04/05/21 04/05/21 17:35 21:07 23:15 WBC RBC Hgb Hct MCV MCHC RDW Plt Count Lymph % (Auto) [place] % (Auto) Lymph # (Auto) [place] # (Auto) Seg Neutrophils % Seg Neuts % (Manual) Lymphocytes % (Manual) Monocytes % (Manual) Nucleated RBC % Seg Neutrophils # Seg Neutrophils # Man Lymphocytes # (Manual) Monocytes # (Manual) PT INR APTT D-Dimer Heparin Anti-Xa Level ABG pH POC ABG pCO2 POC ABG pO2 ABG pO2 ABG HCO3 ABG O2 Saturation ABG Base Excess ABG Hemoglobin ABG Oxyhemoglobin ABG Sodium ABG Potassium ABG Glucose Oxyhemoglobin Sodium Potassium Chloride Carbon Dioxide BUN Creatinine Glucose POC Glucose 143 H 157 H 171 H Lactic Acid Calcium Phosphorus Magnesium Ferritin Lactate Dehydrogenase C-Reactive Protein NT-Pro-B Natriuret Pep Total Protein Albumin Triglycerides Arterial Blood Glucose Ur Specific [place] Coronavirus (PCR) 04/06/21 04/06/21 04/06/21 04:49 05:14 11:42 WBC RBC Hgb Hct MCV MCHC RDW Plt Count Lymph % (Auto) [place] % (Auto) Lymph # (Auto) [place] # (Auto) Seg Neutrophils % Seg Neuts % (Manual) Lymphocytes % (Manual) Monocytes % (Manual) Nucleated RBC % Seg Neutrophils # Seg Neutrophils # Man Lymphocytes # (Manual) Monocytes # (Manual) PT INR APTT D-Dimer Heparin Anti-Xa Level ABG pH POC ABG pCO2 57.4 H POC ABG pO2 55.1 L ABG pO2 ABG HCO3 ABG O2 Saturation ABG Base Excess ABG Hemoglobin 11.5 L ABG Oxyhemoglobin 87.5 L ABG Sodium ABG Potassium ABG Glucose Oxyhemoglobin Sodium Potassium Chloride Carbon Dioxide BUN Creatinine Glucose POC Glucose 145 H 171 H Lactic Acid Calcium Phosphorus Magnesium Ferritin Lactate Dehydrogenase C-Reactive Protein NT-Pro-B Natriuret Pep Total Protein Albumin Triglycerides Arterial Blood Glucose Ur Specific [place] Coronavirus (PCR) 04/06/21 04/06/21 04/06/21 11:50 15:36 15:36 WBC RBC Hgb 10.4 L Hct 32.5 L MCV MCHC RDW Plt Count 444 H Lymph % (Auto) [place] % (Auto) Lymph # (Auto) [place] # (Auto) Seg Neutrophils % Seg Neuts % (Manual) Lymphocytes % (Manual) Monocytes % (Manual) Nucleated RBC % Seg Neutrophils # Seg Neutrophils # Man Lymphocytes # (Manual) Monocytes # (Manual) PT INR APTT 37.1 H D-Dimer Heparin Anti-Xa Level ABG pH 7.341 L POC ABG pCO2 POC ABG pO2 ABG pO2 108.9 H ABG HCO3 38.9 H ABG O2 Saturation ABG Base Excess 10.6 H ABG Hemoglobin 11.5 L ABG Oxyhemoglobin ABG Sodium ABG Potassium ABG Glucose Oxyhemoglobin Sodium Potassium Chloride Carbon Dioxide BUN Creatinine Glucose POC Glucose Lactic Acid Calcium Phosphorus Magnesium Ferritin Lactate Dehydrogenase C-Reactive Protein NT-Pro-B Natriuret Pep Total Protein Albumin Triglycerides Arterial Blood Glucose Ur Specific [place] Coronavirus (PCR) 04/06/21 04/07/21 04/07/21 17:57 00:30 00:32 WBC RBC Hgb Hct MCV MCHC RDW Plt Count Lymph % (Auto) [place] % (Auto) Lymph # (Auto) [place] # (Auto) Seg Neutrophils % Seg Neuts % (Manual) Lymphocytes % (Manual) Monocytes % (Manual) Nucleated RBC % Seg Neutrophils # Seg Neutrophils # Man Lymphocytes # (Manual) Monocytes # (Manual) PT INR APTT D-Dimer Heparin Anti-Xa Level < 0.10 L ABG pH POC ABG pCO2 POC ABG pO2 ABG pO2 ABG HCO3 ABG O2 Saturation ABG Base Excess ABG Hemoglobin ABG Oxyhemoglobin ABG Sodium ABG Potassium ABG Glucose Oxyhemoglobin Sodium Potassium Chloride Carbon Dioxide BUN Creatinine Glucose POC Glucose 151 H 149 H Lactic Acid Calcium Phosphorus Magnesium Ferritin Lactate Dehydrogenase C-Reactive Protein NT-Pro-B Natriuret Pep Total Protein Albumin Triglycerides Arterial Blood Glucose Ur Specific [place] Coronavirus (PCR) 04/07/21 04/07/21 04/07/21 05:34 06:08 06:08 WBC RBC 3.20 L Hgb 9.6 L Hct 29.8 L MCV MCHC RDW 16.0 H Plt Count 455 H Lymph % (Auto) [place] % (Auto) Lymph # (Auto) [place] # (Auto) Seg Neutrophils % Seg Neuts % (Manual) Lymphocytes % (Manual) Monocytes % (Manual) Nucleated RBC % Seg Neutrophils # Seg Neutrophils # Man Lymphocytes # (Manual) Monocytes # (Manual) PT INR APTT D-Dimer Heparin Anti-Xa Level ABG pH POC ABG pCO2 POC ABG pO2 ABG pO2 ABG HCO3 ABG O2 Saturation ABG Base Excess ABG Hemoglobin ABG Oxyhemoglobin ABG Sodium ABG Potassium ABG Glucose Oxyhemoglobin Sodium Potassium Chloride Carbon Dioxide 35 H BUN Creatinine 0.5 L Glucose 216 H POC Glucose 182 H Lactic Acid Calcium Phosphorus Magnesium Ferritin Lactate Dehydrogenase C-Reactive Protein NT-Pro-B Natriuret Pep Total Protein Albumin Triglycerides Arterial Blood Glucose Ur Specific [place] Coronavirus (PCR) 04/07/21 04/07/21 04/07/21 07:55 11:57 17:12 WBC RBC Hgb Hct MCV MCHC RDW Plt Count Lymph % (Auto) [place] % (Auto) Lymph # (Auto) [place] # (Auto) Seg Neutrophils % Seg Neuts % (Manual) Lymphocytes % (Manual) Monocytes % (Manual) Nucleated RBC % Seg Neutrophils # Seg Neutrophils # Man Lymphocytes # (Manual) Monocytes # (Manual) PT INR APTT D-Dimer Heparin Anti-Xa Level < 0.10 L ABG pH POC ABG pCO2 POC ABG pO2 ABG pO2 ABG HCO3 ABG O2 Saturation ABG Base Excess ABG Hemoglobin ABG Oxyhemoglobin ABG Sodium ABG Potassium ABG Glucose Oxyhemoglobin Sodium Potassium Chloride Carbon Dioxide BUN Creatinine Glucose POC Glucose 182 H 165 H Lactic Acid Calcium Phosphorus Magnesium Ferritin Lactate Dehydrogenase C-Reactive Protein NT-Pro-B Natriuret Pep Total Protein Albumin Triglycerides Arterial Blood Glucose Ur Specific [place] Coronavirus (PCR) 04/07/21 04/08/21 04/08/21 19:55 00:16 03:57 WBC RBC Hgb Hct MCV MCHC RDW Plt Count Lymph % (Auto) [place] % (Auto) Lymph # (Auto) [place] # (Auto) Seg Neutrophils % Seg Neuts % (Manual) Lymphocytes % (Manual) Monocytes % (Manual) Nucleated RBC % Seg Neutrophils # Seg Neutrophils # Man Lymphocytes # (Manual) Monocytes # (Manual) PT INR APTT D-Dimer Heparin Anti-Xa Level < 0.10 L ABG pH POC ABG pCO2 POC ABG pO2 ABG pO2 ABG HCO3 ABG O2 Saturation ABG Base Excess ABG Hemoglobin ABG Oxyhemoglobin ABG Sodium ABG Potassium ABG Glucose Oxyhemoglobin Sodium Potassium 5.8 H Chloride 95.5 L Carbon Dioxide 37 H BUN Creatinine 0.5 L Glucose 161 H POC Glucose 175 H Lactic Acid Calcium Phosphorus Magnesium Ferritin Lactate Dehydrogenase C-Reactive Protein NT-Pro-B Natriuret Pep Total Protein Albumin Triglycerides Arterial Blood Glucose Ur Specific [place] Coronavirus (PCR) 04/08/21 04/08/21 04/08/21 04:00 05:43 09:26 WBC RBC 3.25 L Hgb 9.9 L Hct 30.8 L MCV 95 H MCHC RDW 16.0 H Plt Count 487 H Lymph % (Auto) [place] % (Auto) Lymph # (Auto) [place] # (Auto) Seg Neutrophils % Seg Neuts % (Manual) Lymphocytes % (Manual) Monocytes % (Manual) Nucleated RBC % Seg Neutrophils # Seg Neutrophils # Man Lymphocytes # (Manual) Monocytes # (Manual) PT INR APTT D-Dimer Heparin Anti-Xa Level ABG pH POC ABG pCO2 POC ABG pO2 ABG pO2 ABG HCO3 ABG O2 Saturation ABG Base Excess ABG Hemoglobin ABG Oxyhemoglobin ABG Sodium ABG Potassium ABG Glucose Oxyhemoglobin Sodium Potassium Chloride Carbon Dioxide BUN Creatinine Glucose POC Glucose 162 H 164 H Lactic Acid Calcium Phosphorus Magnesium Ferritin Lactate Dehydrogenase C-Reactive Protein NT-Pro-B Natriuret Pep Total Protein Albumin Triglycerides Arterial Blood Glucose Ur Specific [place] Coronavirus (PCR) 04/08/21 04/08/21 04/08/21 11:53 17:19 20:35 WBC RBC Hgb Hct MCV MCHC RDW Plt Count Lymph % (Auto) [place] % (Auto) Lymph # (Auto) [place] # (Auto) Seg Neutrophils % Seg Neuts % (Manual) Lymphocytes % (Manual) Monocytes % (Manual) Nucleated RBC % Seg Neutrophils # Seg Neutrophils # Man Lymphocytes # (Manual) Monocytes # (Manual) PT INR APTT D-Dimer Heparin Anti-Xa Level ABG pH POC ABG pCO2 POC ABG pO2 ABG pO2 ABG HCO3 ABG O2 Saturation ABG Base Excess ABG Hemoglobin ABG Oxyhemoglobin ABG Sodium ABG Potassium ABG Glucose Oxyhemoglobin Sodium Potassium Chloride Carbon Dioxide BUN Creatinine Glucose POC Glucose 170 H 157 H 190 H Lactic Acid Calcium Phosphorus Magnesium Ferritin Lactate Dehydrogenase C-Reactive Protein NT-Pro-B Natriuret Pep Total Protein Albumin Triglycerides Arterial Blood Glucose Ur Specific [place]ie Coronavirus (PCR) 04/08/21 04/09/21 04/09/21 23:52 04:21 04:21 WBC 11.4 H RBC 2.97 L Hgb 8.9 L Hct 27.8 L MCV MCHC RDW 15.8 H Plt Count 485 H Lymph % (Auto) [place] % (Auto) Lymph # (Auto) [place] # (Auto) Seg Neutrophils % Seg Neuts % (Manual) Lymphocytes % (Manual) Monocytes % (Manual) Nucleated RBC % Seg Neutrophils # Seg Neutrophils # Man Lymphocytes # (Manual) Monocytes # (Manual) PT INR APTT D-Dimer Heparin Anti-Xa Level ABG pH POC ABG pCO2 POC ABG pO2 ABG pO2 ABG HCO3 ABG O2 Saturation ABG Base Excess ABG Hemoglobin ABG Oxyhemoglobin ABG Sodium ABG Potassium ABG Glucose Oxyhemoglobin Sodium Potassium Chloride 97.1 L Carbon Dioxide 40 H BUN 21 H Creatinine 0.5 L Glucose 149 H POC Glucose 170 H Lactic Acid Calcium Phosphorus 1.90 L D Magnesium Ferritin Lactate Dehydrogenase C-Reactive Protein NT-Pro-B Natriuret Pep Total Protein Albumin Triglycerides Arterial Blood Glucose Ur Specific [place] Coronavirus (PCR) 04/09/21 04/09/21 04/09/21 05:27 11:55 17:11 WBC RBC Hgb Hct MCV MCHC RDW Plt Count Lymph % (Auto) [place] % (Auto) Lymph # (Auto) [place] # (Auto) Seg Neutrophils % Seg Neuts % (Manual) Lymphocytes % (Manual) Monocytes % (Manual) Nucleated RBC % Seg Neutrophils # Seg Neutrophils # Man Lymphocytes # (Manual) Monocytes # (Manual) PT INR APTT D-Dimer Heparin Anti-Xa Level ABG pH POC ABG pCO2 POC ABG pO2 ABG pO2 ABG HCO3 ABG O2 Saturation ABG Base Excess ABG Hemoglobin ABG Oxyhemoglobin ABG Sodium ABG Potassium ABG Glucose Oxyhemoglobin Sodium Potassium Chloride Carbon Dioxide BUN Creatinine Glucose POC Glucose 144 H 190 H 163 H Lactic Acid Calcium Phosphorus Magnesium Ferritin Lactate Dehydrogenase C-Reactive Protein NT-Pro-B Natriuret Pep Total Protein Albumin Triglycerides Arterial Blood Glucose Ur Specific [place] Coronavirus (PCR) 04/09/21 04/09/21 04/09/21 20:10 21:12 23:33 WBC RBC Hgb Hct MCV MCHC RDW Plt Count Lymph % (Auto) [place] % (Auto) Lymph # (Auto) [place] # (Auto) Seg Neutrophils % Seg Neuts % (Manual) Lymphocytes % (Manual) Monocytes % (Manual) Nucleated RBC % Seg Neutrophils # Seg Neutrophils # Man Lymphocytes # (Manual) Monocytes # (Manual) PT INR APTT D-Dimer Heparin Anti-Xa Level ABG pH POC ABG pCO2 POC ABG pO2 ABG pO2 68.1 L ABG HCO3 41.3 H ABG O2 Saturation ABG Base Excess 14.6 H ABG Hemoglobin 10.2 L ABG Oxyhemoglobin ABG Sodium ABG Potassium ABG Glucose Oxyhemoglobin 94.7 L Sodium Potassium Chloride Carbon Dioxide BUN Creatinine Glucose POC Glucose 163 H 164 H Lactic Acid Calcium Phosphorus Magnesium Ferritin Lactate Dehydrogenase C-Reactive Protein NT-Pro-B Natriuret Pep Total Protein Albumin Triglycerides Arterial Blood Glucose Ur Specific [place] Coronavirus (PCR) 04/10/21 05:26 WBC RBC Hgb Hct MCV MCHC RDW Plt Count Lymph % (Auto) [place] % (Auto) Lymph # (Auto) [place] # (Auto) Seg Neutrophils % Seg Neuts % (Manual) Lymphocytes % (Manual) Monocytes % (Manual) Nucleated RBC % Seg Neutrophils # Seg Neutrophils # Man Lymphocytes # (Manual) Monocytes # (Manual) PT INR APTT D-Dimer Heparin Anti-Xa Level ABG pH POC ABG pCO2 POC ABG pO2 ABG pO2 ABG HCO3 ABG O2 Saturation ABG Base Excess ABG Hemoglobin ABG Oxyhemoglobin ABG Sodium ABG Potassium ABG Glucose Oxyhemoglobin Sodium Potassium Chloride Carbon Dioxide BUN Creatinine Glucose POC Glucose 172 H Lactic Acid Calcium Phosphorus Magnesium Ferritin Lactate Dehydrogenase C-Reactive Protein NT-Pro-B Natriuret Pep Total Protein Albumin Triglycerides Arterial Blood Glucose Ur Specific [place]ie Coronavirus (PCR) Chest x-ray: image reviewed Allied health notes reviewed: RT
[2021-04-10 13:13] LABS: Hematocrit 28.3 % (35.5-45.6); Hemoglobin 9.3 gm/dl (11.8-15.2); Mean Corpuscular HGB Conc 33 % (32-34); Mean Corpuscular Volume 92 fl (84-94); Platelet Count 480 K/mm3 (140-440); Red Blood Count 3.09 M/mm3 (3.65-5.03); Red Cell Distribution Width 15.8 % (13.2-15.2)
[2021-04-10 13:33] LABS: Blood Urea Nitrogen 20 mg/dL (9-20); Hemolysis Index 7
[2021-04-10] MEDS: MIDAZOLAM 2 MG/2 ML INJ IV PRN ×2 (13:38→17:13)
--- NOTE | 2021-04-10 13:54 | Progress Note ---
Assessment and Plan Cultures: SARS CoV2 PCR: positive 03/08/2021 blood culture: no growth 03/10/2021 sputum culture: Usual respiratory marlyn 03/16/2021 blood culture: no growth 03/18/2021 sputum culture: Stenotrophomonas 03/31/2021 Blood culture: no growth 03/31/2021 tracheal aspirate: usual resp marlyn A/P: 61-year-old male with diabetes, hypertension admitted to the hospital with complaints of shortness of breath and feeling weak for the last 1 week: #Sepsis secondary to bilateral pneumonia: secondary to COVID-19. Completed remd esivir, s/p Actemra, steroids. Completed abx for bacterial pneumonia, Stenotrophomonas. #Acute hypoxic respiratory failure: s/p trach and PEG. #DM #HTN #Acute DVT in RUE Recs: -afebrile, remains off abx, fever could be secondary to DVT -if febrile >101.5F, obtain blood and urine cultures and then start Cefepime + Vancomycin Sangita Nicole MD, FACP, [facility] ([facility] O: [phone] F: [phone] Subjective Date of service: 04/10/21 Principal diagnosis: COVID-19 infection; DM II; Bilateral pneumonia; Obesity; HTN Interval history: Low grade fevers better. Remains off abx. Remains on the vent via trach. D/W RN. Objective - Exam Narrative Exam: Physical Exam Constitutional: on the vent Head, Ears, Nose: Normocephalic, atraumatic. External ears, nose normal Eyes: Conjunctivae/corneas clear. No icterus. Neck: trach + Cardiovascular: S1, S2 + Respiratory: AE fair GI: Soft, bowel sounds +, PEG + Musculoskeletal: edema + Skin: No rash or abscess Hem/Lymphatic: No palpable cervical or supraclavicular nodes. No lymphangitis Psych: no agitation Neurological: on the vent, exam limited - Constitutional Vitals: Vital Signs Temp Pulse Resp BP Pulse Ox 98.4 F 98 H 25 H 191/83 92 04/10/21 12:00 04/10/21 13:38 04/10/21 13:01 04/10/21 13:38 04/10/21 13:01 Temperature -Last 24 Hours Temperature 98.4 F Temperature 98 F Temperature 99.3 F Temperature 98.7 F Temperature 99.8 F Temperature 98.4 F - Labs CBC & Chem 7: 04/10/21 13:00 04/10/21 13:00 Labs: Abnormal lab results 04/09/21 04/09/21 04/09/21 Range/Units 17:11 20:10 21:12 RBC (3.65-5.03) M/mm3 Hgb (11.8-15.2) gm/dl Hct (35.5-45.6) % RDW (13.2-15.2) % Plt Count (140-440) K/mm3 ABG pO2 68.1 L (80.0-90.0) mm Hg ABG HCO3 41.3 H (20.0-26.0) mmol/L ABG Base Excess 14.6 H (-2.0-3.0) mmol/L ABG Hemoglobin 10.2 L (14.0-18.0) gm/dl Oxyhemoglobin 94.7 L (95.0-99.0) % Chloride (98-107) mmol/L Carbon Dioxide (22-30) mmol/L Glucose (75-100) mg/dL POC Glucose 163 H 163 H (70-105) mg/dL 04/09/21 04/10/21 04/10/21 Range/Units 23:33 05:26 11:41 RBC (3.65-5.03) M/mm3 Hgb (11.8-15.2) gm/dl Hct (35.5-45.6) % RDW (13.2-15.2) % Plt Count (140-440) K/mm3 ABG pO2 (80.0-90.0) mm Hg ABG HCO3 (20.0-26.0) mmol/L ABG Base Excess (-2.0-3.0) mmol/L ABG Hemoglobin (14.0-18.0) gm/dl Oxyhemoglobin (95.0-99.0) % Chloride (98-107) mmol/L Carbon Dioxide (22-30) mmol/L Glucose (75-100) mg/dL POC Glucose 164 H 172 H 150 H (70-105) mg/dL 04/10/21 04/10/21 Range/Units 13:00 13:00 RBC 3.09 L (3.65-5.03) M/mm3 Hgb 9.3 L (11.8-15.2) gm/dl Hct 28.3 L (35.5-45.6) % RDW 15.8 H (13.2-15.2) % Plt Count 480 H (140-440) K/mm3 ABG pO2 (80.0-90.0) mm Hg ABG HCO3 (20.0-26.0) mmol/L ABG Base Excess (-2.0-3.0) mmol/L ABG Hemoglobin (14.0-18.0) gm/dl Oxyhemoglobin (95.0-99.0) % Chloride 96.4 L (98-107) mmol/L Carbon Dioxide 34 H (22-30) mmol/L Glucose 165 H (75-100) mg/dL POC Glucose (70-105) mg/dL
[2021-04-10 13:57] LABS: BUN/Creatinine Ratio 40
[2021-04-10] MEDS ORDERED: FUROSEMIDE 20 MG/2 ML INJ IV ONE (20:00)
[2021-04-10] MEDS: INSULIN GLARGINE 100 UNITS/ML SUB-Q SCH (21:46)
--- NOTE | 2021-04-10 23:53 | Cat Scan Report ---
CT head/brain wo con INDICATION / CLINICAL INFORMATION: 61 years Male; ams. TECHNIQUE: Routine CT head without contrast. All CT scans at this location are performed using CT dos e reduction for ALARA by means of automated exposure control. COMPARISON: 03/15/2021 FINDINGS: BRAIN / INTRACRANIAL CONTENTS: No acute hemorrhage, mass effect, midline shift, hydrocephalus, or acu te, large territorial infarct. No signs of significant atrophy or chronic infarct. Minimal, nonspecif ic white matter disease suggested. CRANIOCERVICAL JUNCTION: No significant abnormality. ORBITS: No significant abnormality of visualized orbits. SINUSES / MASTOIDS: Mild mucosal thickening in the ethmoids, as well as sphenoid sinuses. Small air-f luid levels noted bilaterally. There is significant opacification of the mastoids bilaterally with mi ld middle ear cavity disease suggested as well. No coalescence of air cells identified. These finding s have progressed from prior. ADDITIONAL FINDINGS: None. IMPRESSION: 1. No focal mass, hemorrhage, hydrocephalus, or acute, large territorial infarct. [place] 2. Significant sinus disease, as described above. Signer Name: Remigio Winn MD, III Signed: 04/10/2021 3:07 PM Workstation Name: [email or web address]
[2021-04-11] MEDS: chlordiazePOXIDE 25 MG CAP PO SCH ×4 (00:29→19:14)
[2021-04-11] MEDS: fentaNYL DRIP Premix 2,000 MCG/100 ML BAG IV SCH ×3 (00:47→14:27)
[2021-04-11] MEDS: INSULIN LISPRO 100 UNIT/ML SUB-Q SCH ×4 (00:48→19:11)
[2021-04-11 05:10] LABS: Hematocrit 27.8 % (35.5-45.6); Hemoglobin 8.9 gm/dl (11.8-15.2); Mean Corpuscular HGB Conc 32 % (32-34); Mean Corpuscular Volume 92 fl (84-94); Platelet Count 505 K/mm3 (140-440); Red Blood Count 3.02 M/mm3 (3.65-5.03)
[2021-04-11] MEDS: HEPARIN/ 0.45% NACL DRIP 25,000 UNIT/500 ML BAG IV SCH ×2 (05:53→14:27)
[2021-04-11] MEDS: hydrALAZINE 25 MG TAB PO SCH ×3 (05:53→21:02)
[2021-04-11 06:06] LABS: BUN/Creatinine Ratio TNR; Blood Urea Nitrogen TNR mg/dL (9-20); Calcium TNR mg/dL (8.4-10.2); Hemolysis Index TNR
[2021-04-11 07:22] LABS: Hematocrit 30.7 % (35.5-45.6); Hemoglobin 9.8 gm/dl (11.8-15.2); Mean Corpuscular HGB Conc 32 % (32-34); Mean Corpuscular Volume 92 fl (84-94); Platelet Count 520 K/mm3 (140-440); Red Blood Count 3.35 M/mm3 (3.65-5.03); Red Cell Distribution Width 16.3 % (13.2-15.2)
[2021-04-11] MEDS: BUDESONIDE 0.5 MG/2 ML NEBU IH SCH ×2 (07:25→19:49)
[2021-04-11] MEDS: BUDESONIDE 0.25 MG/2 ML NEBU IH SCH (07:25)
[2021-04-11] MEDS: ARFORMOTEROL 15 MCG/2 ML NEBU IH SCH ×2 (07:25→19:49)
[2021-04-11 07:33] LABS: Blood Urea Nitrogen 18 mg/dL (9-20); Calcium 8.6 mg/dL (8.4-10.2); Hemolysis Index 14
[2021-04-11 07:37] LABS: BUN/Creatinine Ratio 45
[2021-04-11 07:57] LABS: Anisocytosis 1+; Band Neutrophils # (Manual) 0.2 K/mm3; Basophils % (Manual) 0 % (0.0-1.8); Platelet Estimate Consistent w Auto; Total Cells Counted 100; Toxic Granulation 1+
[2021-04-11] MEDS: amLODIPine 5 MG TAB PO SCH (09:18)
[2021-04-11] MEDS: METOPROLOL TARTRATE 25 MG TAB PO SCH ×2 (09:19→21:03)
[2021-04-11] MEDS: oxyCODONE 5 MG TAB PO SCH ×3 (09:19→21:02)
[2021-04-11] MEDS: QUEtiapine 25 MG TAB PO SCH ×2 (09:20→21:01)
[2021-04-11] MEDS: FAMOTIDINE 20 MG TAB FEEDTUBE SCH ×2 (09:20→21:02)
[2021-04-11] MEDS: DOXAZOSIN 1 MG TAB PO SCH ×2 (09:21→21:43)
[2021-04-11] MEDS: QUEtiapine 200 MG TAB PO SCH ×2 (09:21→21:01)
--- NOTE | 2021-04-11 11:01 | Progress Note ---
<DEBBY ELLISON - Last Filed: 04/11/21 16:26> Assessment and Plan Assessment and plan: This is a 61-year-old male with past medical history of HTN and DM admitted for sepsis and acute hypoxic respiratory failure 2/2 COVID pneumonia requiring ventilatory support. Hospital Course to Date: 03/09: The patient was seen and evaluated today, and he was found to be hemodynamically stable. The patient is currently on BiPAP for possible COVID-19 pneumonia. He was started on Lovenox 1mg/kg for DVT ppx in the setting of d- dimer > 10,000. Infectious Disease was consulted. The patient is pending a TTE. 03/10: No acute events overnight, patient was intubated in the afternoon transferred to ICU 03/11: Patient started on Lantus, free water flushes increased, propofol drip resumed and oral antihypertensive added. 03/12: lantus increased, k at 5, will monitor. I updated his family and his stated that he is not vaccinated. He does have HTN and she will call the RN to update home medications. She did say he takes bystolic and amlopine. She inquired about ventilator and lab work. She had no further questions. 03/13: KVNG overnight. Patient remains hyperglycemic, basal insulin adjusted and increased to Q12hrs. Patient is overall net positive since admit X1 dose of IV lasix, repeat BMP this afternoon. 03/14: Failed SAT this am due to increase agitation, tachycardia and hypertension. Remains on propofol and fentanyl gtt. Hyperkalemia treated with PO kayaxalate. Patient responded to IV lasix yesterday additional dose again today for a net negative balance. Repeat BMP this afternoon. Insulin adjusted for hyperglycemia. 03/15: Remains encephalopathic, not following commansd. Orders placed for CT head/Brain and Neuro consulted. Rectal bleeding subsided, most likely due to hemorrhoids. H&H is stable will continue to monitor. Kayaxexalate for high K, repeat labs 4 to 6hrs post treatment. 03/16: Still agiated this am, CT head with no acute Abn. CXR and ABG noted- evolving pna and worsening hypoxia, now with low grade fevers. Sputum culture ordered, IV Abx added, ID on cosult. 03/17: This am ABG noted, hypoxia improved. Continue to wean FiO2 as tolerated. Still with low grade fevers, on IV Abx per ID. Still with periods of confusion despite sedation, seroquel increased. F/u CXR in the am 03/18: still very agitated especially when off sedation, with hypertension and tachycardia. Continue sedation for RASS -2, PRN antihypertensive for SPB greater than 160. This febrile this am, continue current IV abx per ID 03/19: Patient afebrile overnight, continue IV Abx per ID. ABG also improved this am, continue to wean FIO2 as tolerated. PRN antihypertensive for hypertension. 03/20: Hyperkalemia treated with Kayexalate, Good discontinued, vancomycin and cefepime stopped started Bactrim by ID. Steroid taper started. 03/21: BB started for hypertension, Seroquel increased for agitation and Librium started no acute events reported overnight. [facility] made vent changes 03/22: Adjustment to anxiolytics, respiratory rate on ventilator per [facility]. Patient noted to have bleeding hemorrhoids with clot, requested RN to remove bowel management system and will order Preparation H. 03/23: Given no confirmed DVT or PE (only superficial thrombus noted on Dopplers) therapeutic Lovenox changed to prophylactic Lovenox. Started on doxazosin to help with retention. Consulted surgery for tracheostomy and propofol discontinued. 03/24: Surgery consult completed, patient changed to prophylaxis anticoagulation, started on doxazosin yesterday with plans to remove Good catheter in 48 hours. Patient with slight hypokalemia today and given Kayexalate. No acute events reported overnight. 03/25: No acute events reported overnight. Patient remains on fentanyl drip and on CPAP trial this morning. 03/26: no acute events reported overnight. placed on CPAP this AM, remains on fent/librium. scheduled for trach/peg this week. 03/27: Hypoglycemic this am, will decreased lantus to Qhs. Plan for possible Trach and Peg by Gen Surg this am. Case management to arrange possible LTAC placement 03/28: KVNG overnight. Tolerating PST this am. Plan for trach and PEG tomorrow by Gen. Surgery, NPO after midnight. 03/29: No significant changes overnight. Plan for trach and Peg today. Case management to arrange possible LTAC placement 03/30. S/p Trach and PEG, no complications noted. High residual yesterday despite NPO status, reglan added X2 days. Per RN no residual this am, patient is tolerating TF. Continue to advance TF as tolerated. Norvasc added for hypertension. Pitting edema also appreciated, some diuretic might be beneficial, will d/w CCM. Continue daily PST as tolerated. 03/31: Patient remains on the vent still on fentanyl gtt with periods of agitation. PRN analgesia added, plan to start weaning off fentanyl gtt. Febrile this am, completed IV abx course. Will panculture for now, ID is also following. 04/01: Still febrile overnight, cultures result pending, continue IV ABx per ID. Failed PST this am. Continue daily PST and vent wean per [facility]. Case management to arrange possible placement. 04/02: KVNG overnight. Fevers improved overnight, continue to follow cultures data, IV ABx per ID. Continue daily PST and wean vent as per [facility].\ 04/03: Given low procalcitonin, unchanged CXR and cultures with no growth cefepime was discontinued by ID. LTAC evaluation ongoing. No acute events reported overnight. 04/04: IV Lasix stopped today, Seroquel taper started, fentanyl drip on hold and steroids stopped. Pressure support trial again today. 04/05: Patient had to be restarted on fentanyl drip therefore Seroquel was increased back to 250 twice daily and he was started on scheduled narcotics and efforts to wean fentanyl drip. Doxazosin was increased to twice daily as patient still had retention issues on doxazosin once a day. Patient was denied LTAC placement. CPAP trial today. 04/06: Right upper extremity ultrasound obtained due to edema which showed DVT. Patient started on heparin drip. Overnight patient had hypoxia, tachypnea, tachycardia, hypotension and FiO2 was increased to 100%. RT titrating as tolerated. Plan was to start T-piece trials today. Patient has been denied LTAC placement. 04/07: BLE dopplar, continue lasix per [facility], CXR in AM. Increase in fio2 overnight d/t desaturation. Wean FiO2 as tolerated. 04/08: Patient remains on 65% FiO2, s/p Lasix for 3 doses, hyperkalemia noted today and medically treated. [facility] plans to consult heme/onc once FiO2 decreased. Remains on heparin gtt 04/09: No acute events reported overnight, possible heme-onc consult on Saturday or Saturday regarding upper extremity DVT, wean FiO2 as tolerated. Repeat CT head on Monday 04/10: Patient mentation is unchanged, repeat CT head today. Remains on heparin gtt per protocol. Continue daily PST as tolerated. 04/11: Increased work of breathing and high RR overnight, vent FiO2 increased to 55%. Resolved this am, patient is tolerating PST, no acute distress noted. Wean Fio2 as tolerated for SPO2 above 92%, Follow up CXR and ABG in the am. Antihypertensive regimen adjusted for better BP control. Assessment and Plan #Acute Hypoxic Respiratory Failure #COVID Pneumonia - Intubated on 03/10 due to worsen hypoxia on BIPAP - 2/ s/p Tracheostomy - Vent setting:Cpap-55%,8 Ps-10 - No ABG this am - CCM consulted, appreciate recommendations - Continue Nebs per CCM - keep patient net negative for better lung compliance - VAP bundle addressed - Aspiration precaution HOB above 30 - Daily SBT and SAT trials as tolerated - PRN ABG and CXR - Continue SPO2 monitoring for SPO2 goal above 92% #Sepsis #COVID Pneumonia #Leukocytosis #Lactic Acidosis- Resolved - COVID PCR positive - UA neg, Blood cultures and Sputum culture NGTD - repeat Bculture NGTD, 03/17 Sputum Cult + Stenotrophomonas - Infectious disease consulted, appreciate recommendation - S/p Actemra 03/10/2021 - Completed X5days course of IV remdesivir - IV abx per ID - Monitor WBC and temperature curve - Trend CBC -04/07 Per ID: if persistently febrile and WBC rises, reculture and then restart abx: IV Cefepime + Vancomycin #Neuro:Acute Encephalopathy - Intubated and sedated on fentanyl RASS -2 - CT head/brain no acute Abn. - Repeat CT head pending - On Seroquel and Librium - Avoid benzodiazepine to reduce the possibility of delirium - Prn analgesia for CPOT greater than 3 - Maintenance of sleep-wake cycle - Neurology on consult #CV: Hypertension - 03/09 Echocardiogram shows a mildly dilated ascending aorta, normal LV systolic function, mild concentric LVH, LVEF 60 to 65% - Continue current antihypertensive regimen - Norvasc added for better control - PRN Labetalol for SBP above 160 - Continue Blood pressure monitoring per protocol #Urinary retention - Good reinserted for retention - Strict intake and output - Avoid nephrotoxic medications; Renally dose medications - Monitor and replace electrolytes as needed - Trend BMP #Acute right upper extremity DVT - Bilateral lower extremity ultrasounds negative for DVT, superficial thrombus in left gastrocnemius vein - CTA chest shows no gross pulm embolism - bilateral upper extremity ultrasound shows DVT in right upper extremity - On heparin gtt per protocol - SCDs to BLE while in bed - Transfuse hemoglobin less than 7 - Monitor for signs of bleeding #Endo:Type 2 DM - Continue high dose SSI Q6hrs - Lantus qHs - Avoid Hypoglycemia The high probability of a clinically significant, sudden or life threatening deterioration of the [Respiratory] system(s) required my full and direct attention, intervention and personal management. The aggregate critical care time was [60] minutes. This time is in addition to time spent performing reported procedures but includes the following: [x] Data Review and interpretation [x] Patient assessment and monitoring of vital signs [x] Documentation [x] Medication orders and management Disposition Plan: ICU Total Time Spent with Patient (Minutes): 60 History Interval history: Patient seen and examined at the bedside. Remains on the vent and on fentanyl gtt. Per RN patient appeared in distress with elevated RR and increase work of breathing overnight, Vent Fio2 increased to 55%. Patient is stable this am, no acute distress noted Hospitalist Physical - Constitutional Vitals: Temp Pulse Resp BP Pulse Ox 99.2 F 110 H 31 H 172/89 100 04/11/21 08:00 04/11/21 09:21 04/11/21 09:00 04/11/21 09:21 04/11/21 09:00 General appearance: Present: no acute distress, well-nourished, obese, other (On the vent, on sedation) - EENT Eyes: Present: PERRL - Respiratory Respiratory effort: normal Respiratory: bilateral: rhonchi - Cardiovascular Rhythm: regular Heart Sounds: Present: S1 & S2 - Extremities Extremities: no ischemia, pulses intact, pulses symmetrical Extremity abnormal: edema - Peripheral Assessment Generalized Edema Type: Pitting Edema Degree: 2+ Capillary Refill: < 3 seconds Skin Temperature: Warm Peripheral Pulses: within normal limits - Abdominal General gastrointestinal: soft, non-distended, normal bowel sounds - Integumentary Integumentary: Present: warm, dry - Psychiatric Psychiatric: other (On the vent, on sedation) - Neurologic Neurologic: other (On the vent, on sedation) - Allied Health Allied health notes reviewed: nursing Results - Labs CBC & Chem 7: 04/11/21 06:47 04/11/21 06:47 Labs: Laboratory Last Values WBC 10.9 K/mm3 (4.5-11.0) 04/11/21 06:47 RBC 3.35 M/mm3 (3.65-5.03) L 04/11/21 06:47 Hgb 9.8 gm/dl (11.8-15.2) L 04/11/21 06:47 Hct 30.7 % (35.5-45.6) L 04/11/21 06:47 MCV 92 fl (84-94) 04/11/21 06:47 MCH 29 pg (28-32) 04/11/21 06:47 MCHC 32 % (32-34) 04/11/21 06:47 RDW 16.3 % (13.2-15.2) H 04/11/21 06:47 Plt Count 520 K/mm3 (140-440) H 04/11/21 06:47 Lymph % (Auto) 7.6 % (13.4-35.0) L 03/31/21 13:30 Braxton % (Auto) 9.5 % (0.0-7.3) H 03/31/21 13:30 Eos % (Auto) 4.1 % (0.0-4.3) 03/31/21 13:30 Baso % (Auto) 0.5 % (0.0-1.8) 03/31/21 13:30 Lymph # (Auto) 0.6 K/mm3 (1.2-5.4) L 03/31/21 13:30 Braxton # (Auto) 0.7 K/mm3 (0.0-0.8) 03/31/21 13:30 Eos # (Auto) 0.3 K/mm3 (0.0-0.4) 03/31/21 13:30 Baso # (Auto) 0.0 K/mm3 (0.0-0.1) 03/31/21 13:30 Add Manual Diff Complete 04/11/21 06:47 Total Counted 100 04/11/21 06:47 Seg Neutrophils % 78.3 % (40.0-70.0) H 03/31/21 13:30 Seg Neuts % (Manual) 76.0 % (40.0-70.0) H 04/11/21 06:47 Band Neutrophils % 2.0 % 04/11/21 06:47 Lymphocytes % (Manual) 10.0 % (13.4-35.0) L 04/11/21 06:47 Reactive Lymphs % (Man) 0 % 04/11/21 06:47 Monocytes % (Manual) 7.0 % (0.0-7.3) 04/11/21 06:47 Eosinophils % (Manual) 4.0 % (0.0-4.3) 04/11/21 06:47 Basophils % (Manual) 0 % (0.0-1.8) 04/11/21 06:47 Metamyelocytes % 1.0 % 04/11/21 06:47 Myelocytes % 0 % 04/11/21 06:47 Promyelocytes % 0 % 04/11/21 06:47 Blast Cells % 0 % 04/11/21 06:47 Nucleated RBC % Not Reportable 04/11/21 06:47 Seg Neutrophils # 5.8 K/mm3 (1.8-7.7) 03/31/21 13:30 Seg Neutrophils # Man 8.3 K/mm3 (1.8-7.7) H 04/11/21 06:47 Band Neutrophils # 0.2 K/mm3 04/11/21 06:47 Lymphocytes # (Manual) 1.1 K/mm3 (1.2-5.4) L 04/11/21 06:47 Abs React Lymphs (Man) 0.0 K/mm3 04/11/21 06:47 Monocytes # (Manual) 0.8 K/mm3 (0.0-0.8) 04/11/21 06:47 Eosinophils # (Manual) 0.4 K/mm3 (0.0-0.4) 04/11/21 06:47 Basophils # (Manual) 0.0 K/mm3 (0.0-0.1) 04/11/21 06:47 Metamyelocytes # 0.1 K/mm3 04/11/21 06:47 Myelocytes # 0.0 K/mm3 04/11/21 06:47 Promyelocytes # 0.0 K/mm3 04/11/21 06:47 Blast Cells # 0.0 K/mm3 04/11/21 06:47 WBC Morphology Not Reportable 04/11/21 06:47 Hypersegmented Neuts Not Reportable 04/11/21 06:47 Hyposegmented Neuts Not Reportable 04/11/21 06:47 Hypogranular Neuts Not Reportable 04/11/21 06:47 Smudge Cells Not Reportable 04/11/21 06:47 Toxic Granulation 1+ 04/11/21 06:47 Toxic Vacuolation Not Reportable 04/11/21 06:47 Dohle Bodies Not Reportable 04/11/21 06:47 Pelger-Huet Anomaly Not Reportable 04/11/21 06:47 Mely Rods Not Reportable 04/11/21 06:47 Platelet Estimate Consistent w auto 04/11/21 06:47 Clumped Platelets Not Reportable 04/11/21 06:47 Plt Clumps, EDTA Not Reportable 04/11/21 06:47 Large Platelets Not Reportable 04/11/21 06:47 Giant Platelets Not Reportable 04/11/21 06:47 Platelet Satelliting Not Reportable 04/11/21 06:47 Plt Morphology Comment Not Reportable 04/11/21 06:47 RBC Morphology Not Reportable 04/11/21 06:47 Dimorphic RBCs Not Reportable 04/11/21 06:47 Polychromasia Not Reportable 04/11/21 06:47 Hypochromasia Not Reportable 04/11/21 06:47 Poikilocytosis Not Reportable 04/11/21 06:47 Anisocytosis 1+ 04/11/21 06:47 Microcytosis Not Reportable 04/11/21 06:47 Macrocytosis Not Reportable 04/11/21 06:47 Spherocytes Not Reportable 04/11/21 06:47 Pappenheimer Bodies Not Reportable 04/11/21 06:47 Sickle Cells Not Reportable 04/11/21 06:47 Target Cells Not Reportable 04/11/21 06:47 Tear Drop Cells Not Reportable 04/11/21 06:47 Ovalocytes Not Reportable 04/11/21 06:47 Helmet Cells Not Reportable 04/11/21 06:47 [place]o-Candelaria Bodies Not Reportable 04/11/21 06:47 [place] Rings Not Reportable 04/11/21 06:47 [place] Cells Not Reportable 04/11/21 06:47 Bite Cells Not Reportable 04/11/21 06:47 Crenated Cell Not Reportable 04/11/21 06:47 Elliptocytes Not Reportable 04/11/21 06:47 Acanthocytes (Spur) Not Reportable 04/11/21 06:47 Rouleaux Not Reportable 04/11/21 06:47 Hemoglobin C Crystals Not Reportable 04/11/21 06:47 Schistocytes Not Reportable 04/11/21 06:47 Malaria parasites Not Reportable 04/11/21 06:47 Shaheen Bodies Not Reportable 04/11/21 06:47 Hem Pathologist Commnt No 04/11/21 06:47 PT 13.6 Sec. (12.2-14.9) 04/06/21 15:36 INR 0.94 (0.87-1.13) 04/06/21 15:36 APTT 37.1 Sec. (24.2-36.6) H 04/06/21 15:36 D-Dimer 1359.12 ng/mlDDU (0-234) H 03/17/21 04:40 Heparin Anti-Xa Level 0.61 U.I./ml (0.3-0.7) 04/11/21 04:30 ABG pH 7.424 pH Units (7.350-7.450) 04/09/21 20:10 POC ABG pCO2 57.4 mmHg (32.0-48.0) H 04/06/21 04:49 ABG pCO2 64.5 mm Hg 04/09/21 20:10 POC ABG pO2 55.1 mmHg (83-108) L 04/06/21 04:49 ABG pO2 68.1 mm Hg (80.0-90.0) L 04/09/21 20:10 POC ABG HCO3 36.2 04/06/21 04:49 ABG HCO3 41.3 mmol/L (20.0-26.0) H 04/09/21 20:10 ABG O2 Saturation 97.1 % (95.0-99.0) 04/09/21 20:10 ABG O2 Content 13.6 (0.0-44) 04/09/21 20:10 POC ABG Base Excess 10.0 04/06/21 04:49 ABG Base Excess 14.6 mmol/L (-2.0-3.0) H 04/09/21 20:10 ABG Hemoglobin 10.2 gm/dl (14.0-18.0) L 04/09/21 20:10 ABG Oxyhemoglobin 87.5 (94-98) L 04/06/21 04:49 ABG Carboxyhemoglobin 2.0 % (0.0-5.0) 04/09/21 20:10 ABG Methemoglobin 0.5 % (0.0-1.5) 04/09/21 20:10 ABG Sodium 134.2 mmol/L (136.0-145.0) L 03/12/21 21:54 ABG Potassium 4.9 mmol/L (3.40-4.50) H 03/12/21 21:54 ABG Chloride 99.0 mmol/L (98-107) 03/12/21 21:54 ABG Glucose 306 mg/dL (65-95) H 03/12/21 21:54 Oxyhemoglobin 94.7 % (95.0-99.0) L 04/09/21 20:10 Carboxyhemoglobin 0.8 (0.5-1.5) 04/06/21 04:49 FiO2 40 % 04/09/21 20:10 FiO2 % 40.0 04/06/21 04:49 Sodium 141 mmol/L (137-145) 04/11/21 06:47 Potassium 4.3 mmol/L (3.6-5.0) 04/11/21 06:47 Chloride 97.7 mmol/L (98-107) L 04/11/21 06:47 Carbon Dioxide 34 mmol/L (22-30) H 04/11/21 06:47 Anion Gap 14 mmol/L 04/11/21 06:47 BUN 18 mg/dL (9-20) 04/11/21 06:47 Creatinine 0.4 mg/dL (0.8-1.3) L 04/11/21 06:47 Estimated GFR > 60 ml/min 04/11/21 06:47 BUN/Creatinine Ratio 45 % 04/11/21 06:47 Glucose 178 mg/dL (75-100) H 04/11/21 06:47 POC Glucose 164 mg/dL (70-105) H 04/11/21 05:39 Lactic Acid 1.90 mmol/L (0.7-2.0) 03/08/21 23:51 Calcium 8.6 mg/dL (8.4-10.2) 04/11/21 06:47 Phosphorus 2.90 mg/dL (2.5-4.5) D 04/10/21 13:00 Magnesium 2.20 mg/dL (1.7-2.3) 04/10/21 13:00 Ferritin 976.4 ng/mL (30.0-300.0) H 03/15/21 04:00 Total Bilirubin 0.20 mg/dL (0.1-1.2) 03/12/21 08:03 AST 10 units/L (5-40) 03/12/21 08:03 ALT 16 units/L (7-56) 03/12/21 08:03 Alkaline Phosphatase 77 units/L (35-129) 03/12/21 08:03 Lactate Dehydrogenase 630 units/L (91-180) H 03/15/21 06:06 C-Reactive Protein 0.40 mg/dL (0.00-1.30) 03/17/21 04:40 NT-Pro-B Natriuret Pep 1053 pg/mL (0-900) H 03/08/21 20:24 Total Protein 6.0 g/dL (6.3-8.2) L 03/12/21 08:03 Albumin 2.9 g/dL (3.9-5) L 03/12/21 08:03 Albumin/Globulin Ratio 0.9 % 03/12/21 08:03 Triglycerides 305 mg/dL (2-149) H 03/22/21 07:26 Procalcitonin 0.17 ng/mL (<0.15) 04/01/21 07:16 Arterial Blood Glucose 306 mg/dL (65-95) H 03/12/21 21:54 Arterial Blood Ionized Calcium 5.0 mg/dL (4.6-5.3) 03/12/21 21:54 Urine Color Yellow (Yellow) 03/09/21 04:10 Urine Turbidity Slightly-cloudy (Clear) 03/09/21 04:10 Urine pH 5.0 (5.0-7.0) 03/09/21 04:10 Ur Specific [place] 1.041 (1.003-1.030) H 03/09/21 04:10 Urine Protein 100 mg/dl mg/dL (Negative) 03/09/21 04:10 Urine Glucose (UA) Neg mg/dL (Negative) 03/09/21 04:10 Urine Ketones Neg mg/dL (Negative) 03/09/21 04:10 Urine Blood Mod (Negative) 03/09/21 04:10 Urine Nitrite Neg (Negative) 03/09/21 04:10 Urine Bilirubin Neg (Negative) 03/09/21 04:10 Urine Urobilinogen 2.0 mg/dL (<2.0) 03/09/21 04:10 Ur Leukocyte Esterase Neg (Negative) 03/09/21 04:10 Urine WBC (Auto) 4.0 /HPF (0.0-6.0) 03/09/21 04:10 Urine RBC (Auto) 1.0 /HPF (0.0-6.0) 03/09/21 04:10 Urine Bacteria (Auto) 1+ /HPF (Negative) 03/09/21 04:10 Urine Mucus Few /HPF 03/09/21 04:10 Coronavirus (PCR) Positive (Negative) A 03/09/21 08:00 Miscellaneous Test Flexitest 1 03/16/21 13:14 Good/IV: Voiding Method Indwelling Catheter Active Medications - Current Medications Current Medications: Generic Name Dose Route Start Last Admin Trade Name Freq PRN Reason Stop Dose Admin Acetaminophen 650 mg 03/09/21 01:26 04/07/21 21:40 Acetaminophen 325 Mg Tab PO 650 mg Q4H PRN Administration Pain MILD(1-3)/Fever >100.5/RAYO Albuterol 2.5 mg 03/09/21 01:26 03/18/21 21:06 Albuterol 2.5 Mg/3 Ml Nebu IH 2.5 mg Q4HRT PRN Administration Shortness Of Breath Amlodipine Besylate 10 mg 04/11/21 10:00 04/11/21 09:18 Amlodipine 5 Mg Tab PO 10 mg QDAY BLANCA Administration Arformoterol Tartrate 15 mcg 03/11/21 20:00 04/11/21 07:25 Arformoterol 15 Mcg/2 Ml Nebu IH 15 mcg Q12HRT BLANCA Administration Bisacodyl 10 mg 03/26/21 13:43 03/26/21 13:51 Bisacodyl 10 Mg Rect Supp AR 10 mg QDAY PRN Administration Constipation Budesonide 0.5 mg 04/06/21 20:00 04/11/21 07:25 Budesonide 0.5 Mg/2 Ml Nebu IH 0.5 mg Q12HRT BLANCA Administration Chlordiazepoxide HCl 75 mg 03/22/21 18:00 04/11/21 05:54 Chlordiazepoxide 25 Mg Cap PO Not Given Q6HR BLANCA Dextrose 0 ml 03/20/21 10:52 Dextrose 10% *Hypoglycemia IV PRN PRN Hypoglycemia Doxazosin Mesylate 1 mg 04/05/21 22:00 04/11/21 09:21 Doxazosin 1 Mg Tab PO 1 mg BID BLANCA Administration Famotidine 20 mg 03/12/21 22:00 04/11/21 09:20 Famotidine 20 Mg Tab FEEDTUBE 20 mg BID BLANCA Administration Fentanyl 1 applic 03/31/21 15:00 04/09/21 09:50 Fentanyl 75 Mcg/Hr Patch 72hr TD 1 applic Q3D BLANCA Administration Fentanyl 50 mcg 04/04/21 17:00 04/08/21 18:11 Fentanyl 100 Mcg/2 Ml Inj IV 50 mcg Q10MIN PRN Administration ANALGESIA Heparin Sodium (Porcine) 4,900 unit 04/07/21 01:47 04/07/21 20:37 Heparin 10,000 Units/10 Ml Vial 40 unit/kg (4900 unit) 4,900 unit IV Administration Q6H PRN Anti-Xa Assay < 0.1 units/ml Hydralazine HCl 50 mg 03/23/21 14:26 04/11/21 05:53 Hydralazine 25 Mg Tab PO 50 mg Q8HR BLANCA Administration Fentanyl Citrate 2,000 mcg in 100 mls @ 6.1 mls/hr 04/04/21 17:00 04/11/21 07:44 Fentanyl Drip Premix IV 2 mcg/kg/hr TITR BLANCA 12.2 mls/hr Administration Protocol 1 MCG/KG/HR Heparin Sodium/Sodium Chloride 25,000 unit in 500 mls @ 30 mls/hr 04/06/21 16:00 04/11/21 05:53 Heparin/ 0.45% Nacl-25,000 Unit/500 Ml IV 2,550 units/hr TITR BLANCA 51 mls/hr Administration Protocol 1,500 UNITS/HR Insulin Glargine 18 units 04/07/21 22:00 04/10/21 21:46 Insulin Glargine 100 Units/Ml SUB-Q 18 units QHS BLANCA Administration Insulin Human Lispro 0 unit 03/11/21 18:00 04/11/21 05:52 Insulin Lispro 100 Unit/Ml SUB-Q 3 unit Q6HR BLANCA Administration Protocol Metoprolol Tartrate 12.5 mg 03/21/21 22:00 04/11/21 09:19 Metoprolol Tartrate 25 Mg Tab PO 12.5 mg BID BLANCA Administration Midazolam HCl 2 mg 03/15/21 08:49 04/10/21 17:13 Midazolam 2 Mg/2 Ml Inj IV 2 mg Q2H PRN Administration VENT SYNCHRONY Ondansetron HCl 4 mg 03/09/21 01:26 Ondansetron 4 Mg/2 Ml Inj IV Q8H PRN Nausea And Vomiting Oxycodone HCl 5 mg 04/05/21 14:00 04/11/21 09:19 Oxycodone 5 Mg Tab PO 5 mg TID BLANCA Administration Phenyleph/Shark Oil/Min Oil/Petrol 1 applic 03/22/21 17:35 04/06/21 04:04 Pe/Mo/Pet,Wh 10 Applic/28 Gm Tube AR 1 applic Q6HR PRN Administration Hemorrhoids Polyethylene Glycol 17 gm 04/02/21 10:00 04/10/21 10:12 Polyethylene Glycol 3350 17 Gm Powder FEEDTUBE 17 gm QDAY BLANCA Administration Quetiapine Fumarate 200 mg 04/04/21 22:00 04/11/21 09:21 Quetiapine 200 Mg Tab PO 200 mg BID BLANCA Administration Quetiapine Fumarate 50 mg 04/05/21 14:00 04/11/21 09:20 Quetiapine 25 Mg Tab PO 50 mg BID BLANCA Administration Senna/Docusate Sodium 2 tab 04/02/21 10:00 04/10/21 21:09 Sennosides/Docusate Sodium 8.6/50 Mg Tab FEEDTUBE Not Given BID BLANCA Sodium Chloride 10 ml 03/09/21 10:00 04/10/21 21:12 Sodium Chloride 0.9% 10 Ml Flush Syringe IV Not Given BID BLANCA Sodium Chloride 10 ml 03/09/21 01:26 04/10/21 21:07 Sodium Chloride 0.9% 10 Ml Flush Syringe IV 10 ml PRN PRN Administration LINE FLUSH Sodium Chloride 10 ml 03/20/21 09:48 Sodium Chloride 0.9% 50 Ml Ivpb IV PRN PRN FLUSH Nutrition/Malnutrition Assess - Dietary Evaluation Nutrition/Malnutrition Findings: Nutrition Notes Start: 03/09/21 08:49 Freq: Status: Active Protocol: Document 04/07/21 14:55 BRIAN (Rec: 04/07/21 14:58 BRIAN [id number]) Nutrition Notes Initial or Follow up Reassessment Current Diagnosis Diabetes,Sepsis,Hypertension, Respiratory Failure Other Pertinent Diagnosis COVID-19, Bilateral Pneumonia. Current Diet TF-Glucerna 1.2 at 70 ml/hr Labs/Tests BG 216 Pertinent Medications Heparin gtt, Miralax, Senokot Height 5 ft 11 in Weight 122 kg [place] Body Weight (kg) 78.18 BMI 37.5 Weight Status Obese Subjective/Other Information Pt remains on vent support. Per RN, pt tolerating TF at goal rate. Percent of energy/protein needs met: 82% energy 78% pro Burn Absent Trauma Absent #1 Nutrition Diagnosis Inadequate oral intake Diagnosis Progress(for reassessment Continues documentation) Is patient on ventilator? Yes Is Patient Ambulatory and/or Out of Bed No REE-([facility]-confined to bed) 1569.140 Calculation Used for Recommendations 70-80% energy needs Additional Notes Energy needs: 9228-3792 kcal/ day Pro needs 1.3g/kg adjBW: 130g/ day Fluid needs 1ml/kcal Nutrition Intervention Nutrition Support: Continue Glucerna 1.2 at 70ml/ hr with 110ml water flush q4h. Kcal 2,016 Protein (gm) 101 Carbohydrates (gm) 192 Fat (gm) 101 Fluid (mL) 1,352 Fiber (gm) 27 Goal #1 TF tolerance Goal #2 TF to meet at least 75% energy and pro needs Follow-Up By: 04/14/21 Additional Comments F/U: stable TF, vent status, wt <ARABELLA CASTILLO - Last Filed: 04/12/21 07:23> Assessment and Plan Assessment and plan: I saw and evaluated the patient. I agree with the findings and the plan of care as documented in the Nurse Practitioner's~note, with the following corrections and additions. Hospitalist Physical - Constitutional Vitals: Temp Pulse Resp BP Pulse Ox 99.6 F 104 H 41 H 154/76 99 04/12/21 07:18 04/12/21 07:00 04/12/21 07:00 04/12/21 07:00 04/12/21 07:00 Results - Labs CBC & Chem 7: 04/12/21 05:11 04/12/21 05:11 Labs: Laboratory Last Values WBC 10.2 K/mm3 (4.5-11.0) 04/12/21 05:11 RBC 2.92 M/mm3 (3.65-5.03) L 04/12/21 05:11 Hgb 8.6 gm/dl (11.8-15.2) L 04/12/21 05:11 Hct 26.9 % (35.5-45.6) L 04/12/21 05:11 MCV 92 fl (84-94) 04/12/21 05:11 MCH 30 pg (28-32) 04/12/21 05:11 MCHC 32 % (32-34) 04/12/21 05:11 RDW 16.3 % (13.2-15.2) H 04/12/21 05:11 Plt Count 460 K/mm3 (140-440) H 04/12/21 05:11 Lymph % (Auto) 7.6 % (13.4-35.0) L 03/31/21 13:30 Braxton % (Auto) 9.5 % (0.0-7.3) H 03/31/21 13:30 Eos % (Auto) 4.1 % (0.0-4.3) 03/31/21 13:30 Baso % (Auto) 0.5 % (0.0-1.8) 03/31/21 13:30 Lymph # (Auto) 0.6 K/mm3 (1.2-5.4) L 03/31/21 13:30 Braxton # (Auto) 0.7 K/mm3 (0.0-0.8) 03/31/21 13:30 Eos # (Auto) 0.3 K/mm3 (0.0-0.4) 03/31/21 13:30 Baso # (Auto) 0.0 K/mm3 (0.0-0.1) 03/31/21 13:30 Add Manual Diff Complete 04/11/21 06:47 Total Counted 100 04/11/21 06:47 Seg Neutrophils % 78.3 % (40.0-70.0) H 03/31/21 13:30 Seg Neuts % (Manual) 76.0 % (40.0-70.0) H 04/11/21 06:47 Band Neutrophils % 2.0 % 04/11/21 06:47 Lymphocytes % (Manual) 10.0 % (13.4-35.0) L 04/11/21 06:47 Reactive Lymphs % (Man) 0 % 04/11/21 06:47 Monocytes % (Manual) 7.0 % (0.0-7.3) 04/11/21 06:47 Eosinophils % (Manual) 4.0 % (0.0-4.3) 04/11/21 06:47 Basophils % (Manual) 0 % (0.0-1.8) 04/11/21 06:47 Metamyelocytes % 1.0 % 04/11/21 06:47 Myelocytes % 0 % 04/11/21 06:47 Promyelocytes % 0 % 04/11/21 06:47 Blast Cells % 0 % 04/11/21 06:47 Nucleated RBC % Not Reportable 04/11/21 06:47 Seg Neutrophils # 5.8 K/mm3 (1.8-7.7) 03/31/21 13:30 Seg Neutrophils # Man 8.3 K/mm3 (1.8-7.7) H 04/11/21 06:47 Band Neutrophils # 0.2 K/mm3 04/11/21 06:47 Lymphocytes # (Manual) 1.1 K/mm3 (1.2-5.4) L 04/11/21 06:47 Abs React Lymphs (Man) 0.0 K/mm3 04/11/21 06:47 Monocytes # (Manual) 0.8 K/mm3 (0.0-0.8) 04/11/21 06:47 Eosinophils # (Manual) 0.4 K/mm3 (0.0-0.4) 04/11/21 06:47 Basophils # (Manual) 0.0 K/mm3 (0.0-0.1) 04/11/21 06:47 Metamyelocytes # 0.1 K/mm3 04/11/21 06:47 Myelocytes # 0.0 K/mm3 04/11/21 06:47 Promyelocytes # 0.0 K/mm3 04/11/21 06:47 Blast Cells # 0.0 K/mm3 04/11/21 06:47 WBC Morphology Not Reportable 04/11/21 06:47 Hypersegmented Neuts Not Reportable 04/11/21 06:47 Hyposegmented Neuts Not Reportable 04/11/21 06:47 Hypogranular Neuts Not Reportable 04/11/21 06:47 Smudge Cells Not Reportable 04/11/21 06:47 Toxic Granulation 1+ 04/11/21 06:47 Toxic Vacuolation Not Reportable 04/11/21 06:47 Dohle Bodies Not Reportable 04/11/21 06:47 Pelger-Huet Anomaly Not Reportable 04/11/21 06:47 Mely Rods Not Reportable 04/11/21 06:47 Platelet Estimate Consistent w auto 04/11/21 06:47 Clumped Platelets Not Reportable 04/11/21 06:47 Plt Clumps, EDTA Not Reportable 04/11/21 06:47 Large Platelets Not Reportable 04/11/21 06:47 Giant Platelets Not Reportable 04/11/21 06:47 Platelet Satelliting Not Reportable 04/11/21 06:47 Plt Morphology Comment Not Reportable 04/11/21 06:47 RBC Morphology Not Reportable 04/11/21 06:47 Dimorphic RBCs Not Reportable 04/11/21 06:47 Polychromasia Not Reportable 04/11/21 06:47 Hypochromasia Not Reportable 04/11/21 06:47 Poikilocytosis Not Reportable 04/11/21 06:47 Anisocytosis 1+ 04/11/21 06:47 Microcytosis Not Reportable 04/11/21 06:47 Macrocytosis Not Reportable 04/11/21 06:47 Spherocytes Not Reportable 04/11/21 06:47 Pappenheimer Bodies Not Reportable 04/11/21 06:47 Sickle Cells Not Reportable 04/11/21 06:47 Target Cells Not Reportable 04/11/21 06:47 Tear Drop Cells Not Reportable 04/11/21 06:47 Ovalocytes Not Reportable 04/11/21 06:47 Helmet Cells Not Reportable 04/11/21 06:47 Longo-Candelaria Bodies Not Reportable 04/11/21 06:47 [place] Rings Not Reportable 04/11/21 06:47 [place] Cells Not Reportable 04/11/21 06:47 Bite Cells Not Reportable 04/11/21 06:47 Crenated Cell Not Reportable 04/11/21 06:47 Elliptocytes Not Reportable 04/11/21 06:47 Acanthocytes (Spur) Not Reportable 04/11/21 06:47 Rouleaux Not Reportable 04/11/21 06:47 Hemoglobin C Crystals Not Reportable 04/11/21 06:47 Schistocytes Not Reportable 04/11/21 06:47 Malaria parasites Not Reportable 04/11/21 06:47 Shaheen Bodies Not Reportable 04/11/21 06:47 Hem Pathologist Commnt No 04/11/21 06:47 PT 13.4 Sec. (12.2-14.9) 04/11/21 18:17 INR 0.92 (0.87-1.13) 04/11/21 18:17 APTT 61.1 Sec. (24.2-36.6) H* 04/11/21 18:17 D-Dimer 1359.12 ng/mlDDU (0-234) H 03/17/21 04:40 Heparin Anti-Xa Level 1.03 U.I./ml (0.3-0.7) H 04/12/21 05:11 ABG pH 7.424 pH Units (7.350-7.450) 04/09/21 20:10 POC ABG pCO2 57.4 mmHg (32.0-48.0) H 04/06/21 04:49 ABG pCO2 64.5 mm Hg 04/09/21 20:10 POC ABG pO2 55.1 mmHg (83-108) L 04/06/21 04:49 ABG pO2 68.1 mm Hg (80.0-90.0) L 04/09/21 20:10 POC ABG HCO3 36.2 04/06/21 04:49 ABG HCO3 41.3 mmol/L (20.0-26.0) H 04/09/21 20:10 ABG O2 Saturation 97.1 % (95.0-99.0) 04/09/21 20:10 ABG O2 Content 13.6 (0.0-44) 04/09/21 20:10 POC ABG Base Excess 10.0 04/06/21 04:49 ABG Base Excess 14.6 mmol/L (-2.0-3.0) H 04/09/21 20:10 ABG Hemoglobin 10.2 gm/dl (14.0-18.0) L 04/09/21 20:10 ABG Oxyhemoglobin 87.5 (94-98) L 04/06/21 04:49 ABG Carboxyhemoglobin 2.0 % (0.0-5.0) 04/09/21 20:10 ABG Methemoglobin 0.5 % (0.0-1.5) 04/09/21 20:10 ABG Sodium 134.2 mmol/L (136.0-145.0) L 03/12/21 21:54 ABG Potassium 4.9 mmol/L (3.40-4.50) H 03/12/21 21:54 ABG Chloride 99.0 mmol/L (98-107) 03/12/21 21:54 ABG Glucose 306 mg/dL (65-95) H 03/12/21 21:54 Oxyhemoglobin 94.7 % (95.0-99.0) L 04/09/21 20:10 Carboxyhemoglobin 0.8 (0.5-1.5) 04/06/21 04:49 FiO2 40 % 04/09/21 20:10 FiO2 % 40.0 04/06/21 04:49 Sodium 139 mmol/L (137-145) 04/12/21 05:11 Potassium 4.6 mmol/L (3.6-5.0) 04/12/21 05:11 Chloride 98.4 mmol/L (98-107) 04/12/21 05:11 Carbon Dioxide 34 mmol/L (22-30) H 04/12/21 05:11 Anion Gap 11 mmol/L 04/12/21 05:11 BUN 17 mg/dL (9-20) 04/12/21 05:11 Creatinine 0.3 mg/dL (0.8-1.3) L 04/12/21 05:11 Estimated GFR > 60 ml/min 04/12/21 05:11 BUN/Creatinine Ratio 57 % 04/12/21 05:11 Glucose 153 mg/dL (75-100) H 04/12/21 05:11 POC Glucose 162 mg/dL (70-105) H 04/12/21 06:23 Lactic Acid 1.90 mmol/L (0.7-2.0) 03/08/21 23:51 Calcium 8.7 mg/dL (8.4-10.2) 04/12/21 05:11 Phosphorus 3.30 mg/dL (2.5-4.5) 04/12/21 05:11 Magnesium 2.10 mg/dL (1.7-2.3) 04/12/21 05:11 Ferritin 976.4 ng/mL (30.0-300.0) H 03/15/21 04:00 Total Bilirubin 0.20 mg/dL (0.1-1.2) 03/12/21 08:03 AST 10 units/L (5-40) 03/12/21 08:03 ALT 16 units/L (7-56) 03/12/21 08:03 Alkaline Phosphatase 77 units/L (35-129) 03/12/21 08:03 Lactate Dehydrogenase 630 units/L (91-180) H 03/15/21 06:06 C-Reactive Protein 0.40 mg/dL (0.00-1.30) 03/17/21 04:40 NT-Pro-B Natriuret Pep 1053 pg/mL (0-900) H 03/08/21 20:24 Total Protein 6.0 g/dL (6.3-8.2) L 03/12/21 08:03 Albumin 2.9 g/dL (3.9-5) L 03/12/21 08:03 Albumin/Globulin Ratio 0.9 % 03/12/21 08:03 Triglycerides 305 mg/dL (2-149) H 03/22/21 07:26 Procalcitonin 0.17 ng/mL (<0.15) 04/01/21 07:16 Arterial Blood Glucose 306 mg/dL (65-95) H 03/12/21 21:54 Arterial Blood Ionized Calcium 5.0 mg/dL (4.6-5.3) 03/12/21 21:54 Urine Color Yellow (Yellow) 03/09/21 04:10 Urine Turbidity Slightly-cloudy (Clear) 03/09/21 04:10 Urine pH 5.0 (5.0-7.0) 03/09/21 04:10 Ur Specific [place] 1.041 (1.003-1.030) H 03/09/21 04:10 Urine Protein 100 mg/dl mg/dL (Negative) 03/09/21 04:10 Urine Glucose (UA) Neg mg/dL (Negative) 03/09/21 04:10 Urine Ketones Neg mg/dL (Negative) 03/09/21 04:10 Urine Blood Mod (Negative) 03/09/21 04:10 Urine Nitrite Neg (Negative) 03/09/21 04:10 Urine Bilirubin Neg (Negative) 03/09/21 04:10 Urine Urobilinogen 2.0 mg/dL (<2.0) 03/09/21 04:10 Ur Leukocyte Esterase Neg (Negative) 03/09/21 04:10 Urine WBC (Auto) 4.0 /HPF (0.0-6.0) 03/09/21 04:10 Urine RBC (Auto) 1.0 /HPF (0.0-6.0) 03/09/21 04:10 Urine Bacteria (Auto) 1+ /HPF (Negative) 03/09/21 04:10 Urine Mucus Few /HPF 03/09/21 04:10 Coronavirus (PCR) Positive (Negative) A 03/09/21 08:00 Miscellaneous Test Flexitest 1 03/16/21 13:14 Good/IV: Voiding Method Indwelling Catheter Active Medications - Current Medications Current Medications: Generic Name Dose Route Start Last Admin Trade Name Freq PRN Reason Stop Dose Admin Acetaminophen 650 mg 03/09/21 01:26 04/07/21 21:40 Acetaminophen 325 Mg Tab PO 650 mg Q4H PRN Administration Pain MILD(1-3)/Fever >100.5/RAYO Albuterol 2.5 mg 03/09/21 01:26 03/18/21 21:06 Albuterol 2.5 Mg/3 Ml Nebu IH 2.5 mg Q4HRT PRN Administration Shortness Of Breath Amlodipine Besylate 10 mg 04/11/21 10:00 04/11/21 09:18 Amlodipine 5 Mg Tab PO 10 mg QDAY BLANCA Administration Apixaban 10 mg 04/11/21 22:00 04/11/21 21:03 Apixaban 5 Mg Tab PO 04/18/21 10:01 10 mg Q12HR BLANCA Administration Protocol Apixaban 5 mg 04/18/21 22:00 Apixaban 5 Mg Tab PO Q12HR [facility] Protocol Arformoterol Tartrate 15 mcg 03/11/21 20:00 04/11/21 19:49 Arformoterol 15 Mcg/2 Ml Nebu IH 15 mcg Q12HRT BLANCA Administration Bisacodyl 10 mg 03/26/21 13:43 03/26/21 13:51 Bisacodyl 10 Mg Rect Supp AR 10 mg QDAY PRN Administration Constipation Budesonide 0.5 mg 04/06/21 20:00 04/11/21 19:49 Budesonide 0.5 Mg/2 Ml Nebu IH 0.5 mg Q12HRT [facility] Administration Chlordiazepoxide HCl 75 mg 03/22/21 18:00 04/12/21 05:07 Chlordiazepoxide 25 Mg Cap PO Not Given Q6HR [facility] Dextrose 0 ml 03/20/21 10:52 Dextrose 10% *Hypoglycemia IV PRN PRN Hypoglycemia Doxazosin Mesylate 1 mg 04/05/21 22:00 04/11/21 21:43 Doxazosin 1 Mg Tab PO Not Given BID [facility] Famotidine 20 mg 03/12/21 22:00 04/11/21 21:02 Famotidine 20 Mg Tab FEEDTUBE 20 mg BID BLANCA Administration Fentanyl 1 applic 03/31/21 15:00 04/09/21 09:50 Fentanyl 75 Mcg/Hr Patch 72hr TD 1 applic Q3D BLANCA Administration Fentanyl 50 mcg 04/04/21 17:00 04/08/21 18:11 Fentanyl 100 Mcg/2 Ml Inj IV 50 mcg Q10MIN PRN Administration ANALGESIA Hydralazine HCl 50 mg 03/23/21 14:26 04/12/21 05:41 Hydralazine 25 Mg Tab PO Not Given Q8HR [facility] Fentanyl Citrate 2,000 mcg in 100 mls @ 6.1 mls/hr 04/04/21 17:00 04/12/21 06:22 Fentanyl Drip Premix IV 2 mcg/kg/hr TITR BLANCA 12.2 mls/hr Administration Protocol 1 MCG/KG/HR Insulin Glargine 18 units 04/07/21 22:00 04/11/21 21:01 Insulin Glargine 100 Units/Ml SUB-Q 18 units QHS BLANCA Administration Insulin Human Lispro 0 unit 03/11/21 18:00 04/12/21 06:25 Insulin Lispro 100 Unit/Ml SUB-Q 3 unit Q6HR BLANCA Administration Protocol Metoprolol Tartrate 12.5 mg 03/21/21 22:00 04/11/21 21:03 Metoprolol Tartrate 25 Mg Tab PO 12.5 mg BID BLANCA Administration Midazolam HCl 2 mg 03/15/21 08:49 04/10/21 17:13 Midazolam 2 Mg/2 Ml Inj IV 2 mg Q2H PRN Administration VENT SYNCHRONY Ondansetron HCl 4 mg 03/09/21 01:26 Ondansetron 4 Mg/2 Ml Inj IV Q8H PRN Nausea And Vomiting Oxycodone HCl 5 mg 04/05/21 14:00 04/11/21 21:02 Oxycodone 5 Mg Tab PO 5 mg TID BLANCA Administration Phenyleph/Shark Oil/Min Oil/Petrol 1 applic 03/22/21 17:35 04/06/21 04:04 Pe/Mo/Pet,Wh 10 Applic/28 Gm Tube AR 1 applic Q6HR PRN Administration Hemorrhoids Polyethylene Glycol 17 gm 04/02/21 10:00 04/11/21 11:06 Polyethylene Glycol 3350 17 Gm Powder FEEDTUBE Not Given QDAY BLANCA Quetiapine Fumarate 200 mg 04/04/21 22:00 04/11/21 21:01 Quetiapine 200 Mg Tab PO 200 mg BID BLANCA Administration Quetiapine Fumarate 50 mg 04/05/21 14:00 04/11/21 21:01 Quetiapine 25 Mg Tab PO 50 mg BID BLANCA Administration Senna/Docusate Sodium 2 tab 04/02/21 10:00 04/11/21 21:05 Sennosides/Docusate Sodium 8.6/50 Mg Tab FEEDTUBE Not Given BID BLANCA Sodium Chloride 10 ml 03/09/21 10:00 04/11/21 21:04 Sodium Chloride 0.9% 10 Ml Flush Syringe IV 10 ml BID BLANCA Administration Sodium Chloride 10 ml 03/09/21 01:26 04/10/21 21:07 Sodium Chloride 0.9% 10 Ml Flush Syringe IV 10 ml PRN PRN Administration LINE FLUSH Sodium Chloride 10 ml 03/20/21 09:48 Sodium Chloride 0.9% 50 Ml Ivpb IV PRN PRN FLUSH Nutrition/Malnutrition Assess - Dietary Evaluation Nutrition/Malnutrition Findings: Nutrition Notes Start: 03/09/21 08:49 Freq: Status: Active Protocol: Document 04/07/21 14:55 BRIAN (Rec: 04/07/21 14:58 BRIAN [id number]) Nutrition Notes Initial or Follow up Reassessment Current Diagnosis Diabetes,Sepsis,Hypertension, Respiratory Failure Other Pertinent Diagnosis COVID-19, Bilateral Pneumonia. Current Diet TF-Glucerna 1.2 at 70 ml/hr Labs/Tests BG 216 Pertinent Medications Heparin gtt, Miralax, Senokot Height 5 ft 11 in Weight 122 kg [place] Body Weight (kg) 78.18 BMI 37.5 Weight Status Obese Subjective/Other Information Pt remains on vent support. Per RN, pt tolerating TF at goal rate. Percent of energy/protein needs met: 82% energy 78% pro Burn Absent Trauma Absent #1 Nutrition Diagnosis Inadequate oral intake Diagnosis Progress(for reassessment Continues documentation) Is patient on ventilator? Yes Is Patient Ambulatory and/or Out of Bed No REE-([facility]-confined [facility] bed) 2449.140 Calculation Used for Recommendations 70-80% energy needs Additional Notes Energy needs: 8252-9846 kcal/ day Pro needs 1.3g/kg adjBW: 130g/ day Fluid needs 1ml/kcal Nutrition Intervention Nutrition Support: Continue Glucerna 1.2 at 70ml/ hr with 110ml water flush q4h. Kcal 2,016 Protein (gm) 101 Carbohydrates (gm) 192 Fat (gm) 101 Fluid (mL) 1,352 Fiber (gm) 27 Goal #1 TF tolerance Goal #2 TF to meet at least 75% energy and pro needs Follow-Up By: 04/14/21 Additional Comments F/U: stable TF, vent status, wt
[2021-04-11] MEDS: SENNOSIDES/DOCUSATE SODIUM 8.6/50 MG TAB FEEDTUBE SCH ×2 (11:06→21:05)
[2021-04-11] MEDS: POLYETHYLENE GLYCOL 3350 17 GM POWDER FEEDTUBE SCH (11:06)
--- NOTE | 2021-04-11 14:11 | Progress Note ---
Assessment and Plan Cultures: SARS CoV2 PCR: positive 03/08/2021 blood culture: no growth 03/10/2021 sputum culture: Usual respiratory marlyn 03/16/2021 blood culture: no growth 03/18/2021 sputum culture: Stenotrophomonas 03/31/2021 Blood culture: no growth 03/31/2021 tracheal aspirate: usual resp marlyn A/P: 61-year-old male with diabetes, hypertension admitted to the hospital with complaints of shortness of breath and feeling weak for the last 1 week: #Sepsis secondary to bilateral pneumonia: secondary to COVID-19. Completed remd esivir, s/p Actemra, steroids. Completed abx for bacterial pneumonia, Stenotrophomonas. #Acute hypoxic respiratory failure: s/p trach and PEG. #DM #HTN #Acute DVT in RUE Recs: -afebrile, remains off abx Sangita Nicole MD, FACP, [facility] ([facility] O: [phone] F: [phone] Subjective Date of service: 04/11/21 Principal diagnosis: COVID-19 infection; DM II; Bilateral pneumonia; Obesity; HTN Interval history: No fever. Remains off abx. Remains on the vent via trach. Objective - Exam Narrative Exam: Physical Exam Constitutional: on the vent Head, Ears, Nose: Normocephalic, atraumatic. External ears, nose normal Eyes: Conjunctivae/corneas clear. No icterus. Neck: trach + Cardiovascular: S1, S2 + Respiratory: AE fair GI: Soft, bowel sounds +, PEG + Musculoskeletal: edema + Skin: No rash or abscess Hem/Lymphatic: No palpable cervical or supraclavicular nodes. No lymphangitis Psych: no agitation Neurological: on the vent, exam limited - Constitutional Vitals: Vital Signs Temp Pulse Resp BP Pulse Ox 98.8 F 94 H 27 H 110/68 99 04/11/21 12:00 04/11/21 14:00 04/11/21 14:00 04/11/21 14:00 04/11/21 14:00 Temperature -Last 24 Hours Temperature 98.8 F Temperature 99.2 F Temperature 99.5 F Temperature 98.6 F Temperature 98.5 F Temperature 99.7 F Temperature 99.2 F - Labs CBC & Chem 7: 04/11/21 06:47 04/11/21 06:47 Labs: Abnormal lab results 04/10/21 04/10/21 04/10/21 Range/Units 17:46 21:37 23:56 WBC (4.5-11.0) K/mm3 RBC (3.65-5.03) M/mm3 Hgb (11.8-15.2) gm/dl Hct (35.5-45.6) % RDW (13.2-15.2) % Plt Count (140-440) K/mm3 Seg Neuts % (Manual) (40.0-70.0) % Lymphocytes % (Manual) (13.4-35.0) % Seg Neutrophils # Man (1.8-7.7) K/mm3 Lymphocytes # (Manual) (1.2-5.4) K/mm3 Chloride (98-107) mmol/L Carbon Dioxide (22-30) mmol/L Creatinine (0.8-1.3) mg/dL Glucose (75-100) mg/dL POC Glucose 165 H 166 H 156 H (70-105) mg/dL 04/11/21 04/11/21 04/11/21 Range/Units 04:30 05:39 06:47 WBC 11.5 H (4.5-11.0) K/mm3 RBC 3.02 L 3.35 L (3.65-5.03) M/mm3 Hgb 8.9 L 9.8 L (11.8-15.2) gm/dl Hct 27.8 L 30.7 L (35.5-45.6) % RDW 16.0 H 16.3 H (13.2-15.2) % Plt Count 505 H 520 H (140-440) K/mm3 Seg Neuts % (Manual) 76.0 H (40.0-70.0) % Lymphocytes % (Manual) 10.0 L (13.4-35.0) % Seg Neutrophils # Man 8.3 H (1.8-7.7) K/mm3 Lymphocytes # (Manual) 1.1 L (1.2-5.4) K/mm3 Chloride (98-107) mmol/L Carbon Dioxide (22-30) mmol/L Creatinine (0.8-1.3) mg/dL Glucose (75-100) mg/dL POC Glucose 164 H (70-105) mg/dL 04/11/21 04/11/21 Range/Units 06:47 11:29 WBC (4.5-11.0) K/mm3 RBC (3.65-5.03) M/mm3 Hgb (11.8-15.2) gm/dl Hct (35.5-45.6) % RDW (13.2-15.2) % Plt Count (140-440) K/mm3 Seg Neuts % (Manual) (40.0-70.0) % Lymphocytes % (Manual) (13.4-35.0) % Seg Neutrophils # Man (1.8-7.7) K/mm3 Lymphocytes # (Manual) (1.2-5.4) K/mm3 Chloride 97.7 L (98-107) mmol/L Carbon Dioxide 34 H (22-30) mmol/L Creatinine 0.4 L (0.8-1.3) mg/dL Glucose 178 H (75-100) mg/dL POC Glucose 170 H (70-105) mg/dL
--- NOTE | 2021-04-11 16:45 | Progress Note ---
Assessment and Plan Acute hypoxemic respiratory failure, on MVS COVID-19 infection Bilateral pneumonia Obesity BMI 36 Hypertension Leukocytosis Possible venous thromboembolic phenomena with significantly elevated D-dimers DM II Elevated serum inflammatory markers to include CRP levels, ferritin and LDH Hyperkalemia Daily assessment to wean, daily SAT and SBT Trach care, airway clearance, secretion management Diuretics to keep him negative fluid balance Monitor elceltrolytes while on diuretics- replete as clinically indicated. Keep potassium at 4, Magnesium at 2 and Phos at 2.5 Monitro hemodynamics while on diuretic therapy CXR, ABG in am Trend temperature curve and WCC Antibiotics per ID service Change heparin infusion to oral anticoagulation - VAP bundle addressed, aspiration precautions HOB>40 - continue to titrate supplemental oxygen to keep SpO2 88-90% - continue bronchodilators with pulmonary hygiene per RT - continue accuchecks with glycemic control per SSI (While critically ill target blood glucose of 140-180 mg/dL; avoid hypoglycemia) -continue to avoid nephrotoxins, renally dose all medications - continue to avoid benzodiazepines, reduce the possibility of delirium - continue sedation with target for RASS -1 to -2 - continue with prn analgesia per pain score - continue with maintenance of sleep-wake cycle, avoid delirium -continue with stress ulcer prophylaxis -Therapeutic anticoagulation- on heparin infusion - mobility, off loading and frequent turning per facility protocol for pressure ulcer prevention - Monitor hemodynamics closely - continue other care per attending / other consultants COVID SPECIFIC INTERVENTIONS - s/p Remdesivir per ID/Pulmonary developed protocols - s/p systemic steroids for severe COVID-19 infection CONDITION: CRITICAL PROGNOSIS: GUARDED CODE STATUS: FULL CODE The high probability of a clinically significant, sudden or life-threatening deterioration of the respiratory, cardiovascular, neurology system(s) required my full and direct attention, intervention and personal management. The aggregate critical care time was [33] minutes without overlap. Time includes spent on; [x] Data Review and interpretation [x] Patient assessment and monitoring of vital signs [x] Documentation [x] Medication orders and management Subjective Date of service: 04/11/21 Principal diagnosis: COVID-19 infection; DM II; Bilateral pneumonia; Obesity; HTN Interval history: Patient is seen today for: Acute hypoxemic respiratory failure; COVID-19 infection; DM II; Bilateral pneumonia; Obesity; HTN Seen and examined at bedside; 24hour events reviewed; nursing and respiratory care staff consulted; no adverse overnight events reported to me; resting in bed; on MVS PEEP +8, FIO2 55 %; no emesis or overt aspiration; desaturations wit h increased work of breathing overnight. FIO2 increased to 55%back on full support; On going intermittent fevers, on heparin infusion for DVTs. Good remains for urinary retention Objective Vital Signs - 12hr 04/11/21 04/11/21 04/11/21 04:45 05:00 05:30 Temperature Pulse Rate 99 H 98 H Pulse Rate [ Bilateral Throughout] Pulse Rate [ From Monitor] Respiratory 28 H 25 H Rate Respiratory Rate [Bilateral Throughout] Blood Pressure 128/65 113/52 O2 Sat by Pulse 99 98 Oximetry O2 Sat by Pulse 99 Oximetry [ Assessment] 04/11/21 04/11/21 04/11/21 05:53 06:00 06:30 Temperature Pulse Rate 104 H 103 H 102 H Pulse Rate [ Bilateral Throughout] Pulse Rate [ From Monitor] Respiratory 29 H 26 H Rate Respiratory Rate [Bilateral Throughout] Blood Pressure 113/52 113/52 113/52 O2 Sat by Pulse 100 100 Oximetry O2 Sat by Pulse Oximetry [ Assessment] 04/11/21 04/11/21 04/11/21 07:00 07:25 07:30 Temperature Pulse Rate 107 H 110 H 111 H Pulse Rate [ 108 H Bilateral Throughout] Pulse Rate [ From Monitor] Respiratory 30 H 31 H Rate Respiratory 30 H Rate [Bilateral Throughout] Blood Pressure 158/76 158/76 181/93 O2 Sat by Pulse 100 98 98 Oximetry O2 Sat by Pulse 96 Oximetry [ Assessment] 04/11/21 04/11/21 04/11/21 08:00 08:30 09:00 Temperature 99.2 F Pulse Rate 108 H 107 H 109 H Pulse Rate [ Bilateral Throughout] Pulse Rate [ 108 H From Monitor] Respiratory 31 H 30 H 31 H Rate Respiratory Rate [Bilateral Throughout] Blood Pressure 179/94 172/86 172/89 O2 Sat by Pulse 99 99 100 Oximetry O2 Sat by Pulse Oximetry [ Assessment] 04/11/21 04/11/21 04/11/21 09:18 09:19 09:21 Temperature Pulse Rate 110 H 110 H Pulse Rate [ Bilateral Throughout] Pulse Rate [ From Monitor] Respiratory Rate Respiratory Rate [Bilateral Throughout] Blood Pressure 172/89 172/89 172/89 O2 Sat by Pulse Oximetry O2 Sat by Pulse Oximetry [ Assessment] 04/11/21 04/11/21 04/11/21 09:30 10:00 10:30 Temperature Pulse Rate 110 H 99 H 96 H Pulse Rate [ Bilateral Throughout] Pulse Rate [ From Monitor] Respiratory 28 H 24 22 Rate Respiratory Rate [Bilateral Throughout] Blood Pressure 174/89 129/71 127/62 O2 Sat by Pulse 100 99 98 Oximetry O2 Sat by Pulse Oximetry [ Assessment] 04/11/21 04/11/21 04/11/21 11:00 11:30 11:49 Temperature Pulse Rate 94 H 93 H 94 H Pulse Rate [ Bilateral Throughout] Pulse Rate [ From Monitor] Respiratory 23 23 23 Rate Respiratory Rate [Bilateral Throughout] Blood Pressure 123/59 115/60 115/60 O2 Sat by Pulse 98 98 98 Oximetry O2 Sat by Pulse Oximetry [ Assessment] 04/11/21 04/11/21 04/11/21 12:00 12:30 13:00 Temperature 98.8 F Pulse Rate 454 H 88 96 H Pulse Rate [ Bilateral Throughout] Pulse Rate [ 93 H From Monitor] Respiratory 26 H 15 35 H Rate Respiratory Rate [Bilateral Throughout] Blood Pressure 121/65 115/81 115/81 O2 Sat by Pulse 99 95 98 Oximetry O2 Sat by Pulse Oximetry [ Assessment] 04/11/21 04/11/21 04/11/21 13:30 14:00 14:26 Temperature Pulse Rate 97 H 94 H 96 H Pulse Rate [ Bilateral Throughout] Pulse Rate [ From Monitor] Respiratory 30 H 27 H Rate Respiratory Rate [Bilateral Throughout] Blood Pressure 114/72 110/68 117/61 O2 Sat by Pulse 99 99 Oximetry O2 Sat by Pulse Oximetry [ Assessment] 04/11/21 04/11/21 04/11/21 14:30 15:00 15:03 Temperature Pulse Rate 96 H 92 H 92 H Pulse Rate [ Bilateral Throughout] Pulse Rate [ From Monitor] Respiratory 30 H 26 H 25 H Rate Respiratory Rate [Bilateral Throughout] Blood Pressure 112/58 113/64 113/64 O2 Sat by Pulse 100 99 98 Oximetry O2 Sat by Pulse 98 Oximetry [ Assessment] Constitutional: agitated, other (elderly obese male with mildly increased respiratory effort at rest trach to MVS) Eyes: non-icteric ENT: oropharynx moist, other (+ midline tracheostomy) Neck: supple, no lymphadenopathy, no JVD, other (large circumference) Effort: mildly labored Ascultation: Bilateral: diminished breath sounds, rales, rhonchi Percussion: Bilateral: not dull Cardiovascular: regular rate and rhythm, other (tachycardia, S1,S2) Gastrointestinal: normoactive bowel sounds, soft, non-tender, non-distended (protuberant) Integumentary: normal Extremities: no cyanosis, pulses normal, no ischemia or petechiae, edema (upper extremities, and lower extemities), other Neurologic: pupils equal and round, other (sedated) Psychiatric: other (unable to assess re: AMS) CBC and BMP: 04/17/21 04:25 04/17/21 04:25 ABG, PT/INR, D-dimer: ABG ABG pH 7.424 pH Units (7.350-7.450) 04/09/21 20:10 POC ABG pCO2 57.4 mmHg (32.0-48.0) H 04/06/21 04:49 ABG pCO2 64.5 mm Hg 04/09/21 20:10 POC ABG pO2 55.1 mmHg (83-108) L 04/06/21 04:49 ABG pO2 68.1 mm Hg (80.0-90.0) L 04/09/21 20:10 POC ABG HCO3 36.2 04/06/21 04:49 ABG O2 Saturation 97.1 % (95.0-99.0) 04/09/21 20:10 PT/INR, D-dimer PT 13.6 Sec. (12.2-14.9) 04/06/21 15:36 INR 0.94 (0.87-1.13) 04/06/21 15:36 D-Dimer 1359.12 ng/mlDDU (0-234) H 03/17/21 04:40 Abnormal lab findings: Abnormal Labs 03/08/21 03/08/21 03/08/21 20:24 20:24 20:24 WBC 22.6 H RBC 5.44 H Hgb 15.7 H Hct 49.2 H MCV MCHC RDW Plt Count Lymph % (Auto) [place] % (Auto) Lymph # (Auto) [place] # (Auto) Seg Neutrophils % Seg Neuts % (Manual) 83.0 H Lymphocytes % (Manual) 9.0 L Monocytes % (Manual) 8.0 H Nucleated RBC % Seg Neutrophils # Seg Neutrophils # Man 18.8 H Lymphocytes # (Manual) Monocytes # (Manual) 1.8 H PT 16.1 H INR 1.17 H APTT D-Dimer > 75409 H Heparin Anti-Xa Level ABG pH POC ABG pCO2 POC ABG pO2 ABG pO2 ABG HCO3 ABG O2 Saturation ABG Base Excess ABG Hemoglobin ABG Oxyhemoglobin ABG Sodium ABG Potassium ABG Glucose Oxyhemoglobin Sodium 136 L Potassium Chloride 93.9 L Carbon Dioxide BUN 29 H Creatinine Glucose 208 H POC Glucose Lactic Acid Calcium Phosphorus Magnesium Ferritin Lactate Dehydrogenase 624 H C-Reactive Protein 18.00 H NT-Pro-B Natriuret Pep 1053 H Total Protein Albumin Triglycerides Arterial Blood Glucose Ur Specific [place] Coronavirus (PCR) 03/08/21 03/08/21 03/09/21 20:24 20:24 04:10 WBC RBC Hgb Hct MCV MCHC RDW Plt Count Lymph % (Auto) [place] % (Auto) Lymph # (Auto) [place] # (Auto) Seg Neutrophils % Seg Neuts % (Manual) Lymphocytes % (Manual) Monocytes % (Manual) Nucleated RBC % Seg Neutrophils # Seg Neutrophils # Man Lymphocytes # (Manual) Monocytes # (Manual) PT INR APTT D-Dimer Heparin Anti-Xa Level ABG pH POC ABG pCO2 POC ABG pO2 ABG pO2 ABG HCO3 ABG O2 Saturation ABG Base Excess ABG Hemoglobin ABG Oxyhemoglobin ABG Sodium ABG Potassium ABG Glucose Oxyhemoglobin Sodium Potassium Chloride Carbon Dioxide BUN Creatinine Glucose POC Glucose Lactic Acid 2.10 H* Calcium Phosphorus Magnesium Ferritin 877.5 H Lactate Dehydrogenase C-Reactive Protein NT-Pro-B Natriuret Pep Total Protein Albumin Triglycerides Arterial Blood Glucose Ur Specific [place] 1.041 H Coronavirus (PCR) 03/09/21 03/09/21 03/09/21 07:46 08:00 13:01 WBC RBC Hgb Hct MCV MCHC RDW Plt Count Lymph % (Auto) [place] % (Auto) Lymph # (Auto) [place] # (Auto) Seg Neutrophils % Seg Neuts % (Manual) Lymphocytes % (Manual) Monocytes % (Manual) Nucleated RBC % Seg Neutrophils # Seg Neutrophils # Man Lymphocytes # (Manual) Monocytes # (Manual) PT INR APTT D-Dimer Heparin Anti-Xa Level ABG pH POC ABG pCO2 POC ABG pO2 ABG pO2 ABG HCO3 ABG O2 Saturation ABG Base Excess ABG Hemoglobin ABG Oxyhemoglobin ABG Sodium ABG Potassium ABG Glucose Oxyhemoglobin Sodium Potassium Chloride Carbon Dioxide BUN Creatinine Glucose POC Glucose 191 H 182 H Lactic Acid Calcium Phosphorus Magnesium Ferritin Lactate Dehydrogenase C-Reactive Protein NT-Pro-B Natriuret Pep Total Protein Albumin Triglycerides Arterial Blood Glucose Ur Specific [place] Coronavirus (PCR) Positive A 03/09/21 03/09/21 03/09/21 15:19 17:48 18:10 WBC RBC Hgb Hct MCV MCHC RDW Plt Count Lymph % (Auto) [place] % (Auto) Lymph # (Auto) [place] # (Auto) Seg Neutrophils % Seg Neuts % (Manual) Lymphocytes % (Manual) Monocytes % (Manual) Nucleated RBC % Seg Neutrophils # Seg Neutrophils # Man Lymphocytes # (Manual) Monocytes # (Manual) PT INR APTT D-Dimer Heparin Anti-Xa Level ABG pH POC ABG pCO2 POC ABG pO2 ABG pO2 47.3 L ABG HCO3 26.3 H ABG O2 Saturation 83.7 L ABG Base Excess ABG Hemoglobin ABG Oxyhemoglobin ABG Sodium ABG Potassium ABG Glucose Oxyhemoglobin 82.1 L Sodium Potassium Chloride Carbon Dioxide BUN 29 H Creatinine Glucose 214 H POC Glucose 194 H Lactic Acid Calcium Phosphorus Magnesium Ferritin Lactate Dehydrogenase C-Reactive Protein NT-Pro-B Natriuret Pep Total Protein Albumin 3.4 L Triglycerides Arterial Blood Glucose Ur Specific [place] Coronavirus (PCR) 03/09/21 03/10/21 03/10/21 20:40 04:29 04:29 WBC 20.6 H RBC 5.07 H Hgb Hct 46.2 H MCV MCHC RDW Plt Count Lymph % (Auto) [place] % (Auto) Lymph # (Auto) [place] # (Auto) Seg Neutrophils % Seg Neuts % (Manual) 94.0 H Lymphocytes % (Manual) 1.0 L Monocytes % (Manual) Nucleated RBC % 3.0 H Seg Neutrophils # Seg Neutrophils # Man 19.4 H Lymphocytes # (Manual) 0.2 L Monocytes # (Manual) 1.0 H PT INR APTT D-Dimer Heparin Anti-Xa Level ABG pH POC ABG pCO2 POC ABG pO2 ABG pO2 ABG HCO3 ABG O2 Saturation ABG Base Excess ABG Hemoglobin ABG Oxyhemoglobin ABG Sodium ABG Potassium ABG Glucose Oxyhemoglobin Sodium Potassium Chloride Carbon Dioxide BUN 29 H Creatinine Glucose 188 H POC Glucose 176 H Lactic Acid Calcium Phosphorus Magnesium Ferritin Lactate Dehydrogenase C-Reactive Protein NT-Pro-B Natriuret Pep Total Protein Albumin 3.3 L Triglycerides Arterial Blood Glucose Ur Specific [place] Coronavirus (PCR) 03/10/21 03/10/21 03/10/21 05:22 10:27 15:25 WBC RBC Hgb Hct MCV MCHC RDW Plt Count Lymph % (Auto) [place] % (Auto) Lymph # (Auto) [place] # (Auto) Seg Neutrophils % Seg Neuts % (Manual) Lymphocytes % (Manual) Monocytes % (Manual) Nucleated RBC % Seg Neutrophils # Seg Neutrophils # Man Lymphocytes # (Manual) Monocytes # (Manual) PT INR APTT D-Dimer Heparin Anti-Xa Level ABG pH 7.488 H 7.488 H POC ABG pCO2 POC ABG pO2 ABG pO2 47.7 L 50.5 L ABG HCO3 ABG O2 Saturation 86.2 L 87.9 L ABG Base Excess ABG Hemoglobin ABG Oxyhemoglobin ABG Sodium ABG Potassium ABG Glucose Oxyhemoglobin 84.6 L 86.2 L Sodium Potassium Chloride Carbon Dioxide BUN Creatinine Glucose POC Glucose 155 H Lactic Acid Calcium Phosphorus Magnesium Ferritin Lactate Dehydrogenase C-Reactive Protein NT-Pro-B Natriuret Pep Total Protein Albumin Triglycerides Arterial Blood Glucose Ur Specific [place] Coronavirus (PCR) 03/10/21 03/10/21 03/11/21 18:10 18:55 00:07 WBC RBC Hgb Hct MCV MCHC RDW Plt Count Lymph % (Auto) [place] % (Auto) Lymph # (Auto) [place] # (Auto) Seg Neutrophils % Seg Neuts % (Manual) Lymphocytes % (Manual) Monocytes % (Manual) Nucleated RBC % Seg Neutrophils # Seg Neutrophils # Man Lymphocytes # (Manual) Monocytes # (Manual) PT INR APTT D-Dimer Heparin Anti-Xa Level ABG pH 7.343 L POC ABG pCO2 POC ABG pO2 ABG pO2 60.4 L ABG HCO3 27.9 H ABG O2 Saturation 88.7 L ABG Base Excess ABG Hemoglobin ABG Oxyhemoglobin ABG Sodium ABG Potassium ABG Glucose Oxyhemoglobin 86.9 L Sodium Potassium Chloride Carbon Dioxide BUN Creatinine Glucose POC Glucose 187 H 139 H Lactic Acid Calcium Phosphorus Magnesium Ferritin Lactate Dehydrogenase C-Reactive Protein NT-Pro-B Natriuret Pep Total Protein Albumin Triglycerides Arterial Blood Glucose Ur Specific [place] Coronavirus (PCR) 03/11/21 03/11/21 03/11/21 02:09 04:28 08:06 WBC RBC Hgb Hct MCV MCHC RDW Plt Count Lymph % (Auto) [place] % (Auto) Lymph # (Auto) [place] # (Auto) Seg Neutrophils % Seg Neuts % (Manual) Lymphocytes % (Manual) Monocytes % (Manual) Nucleated RBC % Seg Neutrophils # Seg Neutrophils # Man Lymphocytes # (Manual) Monocytes # (Manual) PT INR APTT D-Dimer Heparin Anti-Xa Level ABG pH 7.277 L POC ABG pCO2 55.9 H POC ABG pO2 54.4 L ABG pO2 ABG HCO3 ABG O2 Saturation ABG Base Excess ABG Hemoglobin ABG Oxyhemoglobin 83.0 L ABG Sodium ABG Potassium 4.8 H ABG Glucose 180 H Oxyhemoglobin Sodium Potassium Chloride Carbon Dioxide BUN 38 H Creatinine Glucose 249 H POC Glucose 278 H Lactic Acid Calcium Phosphorus Magnesium Ferritin Lactate Dehydrogenase C-Reactive Protein NT-Pro-B Natriuret Pep Total Protein Albumin 3.2 L Triglycerides Arterial Blood Glucose 180 H Ur Specific [place] Coronavirus (PCR) 03/11/21 03/11/21 03/11/21 11:29 15:06 15:48 WBC RBC Hgb Hct MCV MCHC RDW Plt Count Lymph % (Auto) [place] % (Auto) Lymph # (Auto) [place] # (Auto) Seg Neutrophils % Seg Neuts % (Manual) Lymphocytes % (Manual) Monocytes % (Manual) Nucleated RBC % Seg Neutrophils # Seg Neutrophils # Man Lymphocytes # (Manual) Monocytes # (Manual) PT INR APTT D-Dimer Heparin Anti-Xa Level ABG pH 7.260 L POC ABG pCO2 POC ABG pO2 ABG pO2 53.5 L ABG HCO3 29.5 H ABG O2 Saturation 84.0 L ABG Base Excess ABG Hemoglobin ABG Oxyhemoglobin ABG Sodium ABG Potassium ABG Glucose Oxyhemoglobin 82.3 L Sodium Potassium Chloride Carbon Dioxide BUN Creatinine Glucose POC Glucose 288 H 295 H Lactic Acid Calcium Phosphorus Magnesium Ferritin Lactate Dehydrogenase C-Reactive Protein NT-Pro-B Natriuret Pep Total Protein Albumin Triglycerides Arterial Blood Glucose Ur Specific [place] Coronavirus (PCR) 03/12/21 03/12/21 03/12/21 00:01 05:24 08:03 WBC RBC Hgb Hct MCV MCHC RDW Plt Count Lymph % (Auto) [place] % (Auto) Lymph # (Auto) [place] # (Auto) Seg Neutrophils % Seg Neuts % (Manual) Lymphocytes % (Manual) Monocytes % (Manual) Nucleated RBC % Seg Neutrophils # Seg Neutrophils # Man Lymphocytes # (Manual) Monocytes # (Manual) PT INR APTT D-Dimer Heparin Anti-Xa Level ABG pH POC ABG pCO2 POC ABG pO2 ABG pO2 ABG HCO3 ABG O2 Saturation ABG Base Excess ABG Hemoglobin ABG Oxyhemoglobin ABG Sodium ABG Potassium ABG Glucose Oxyhemoglobin Sodium 135 L Potassium Chloride Carbon Dioxide BUN 48 H Creatinine Glucose 358 H POC Glucose 304 H 310 H Lactic Acid Calcium Phosphorus Magnesium Ferritin Lactate Dehydrogenase C-Reactive Protein NT-Pro-B Natriuret Pep Total Protein 6.0 L Albumin 2.9 L Triglycerides Arterial Blood Glucose Ur Specific [place] Coronavirus (PCR) 03/12/21 03/12/21 03/12/21 08:03 10:43 11:31 WBC 14.6 H RBC Hgb Hct MCV MCHC RDW Plt Count Lymph % (Auto) [place] % (Auto) Lymph # (Auto) [place] # (Auto) Seg Neutrophils % Seg Neuts % (Manual) Lymphocytes % (Manual) Monocytes % (Manual) Nucleated RBC % Seg Neutrophils # Seg Neutrophils # Man Lymphocytes # (Manual) Monocytes # (Manual) PT INR APTT D-Dimer Heparin Anti-Xa Level ABG pH 7.248 L POC ABG pCO2 POC ABG pO2 ABG pO2 73.7 L ABG HCO3 32.0 H ABG O2 Saturation 93.9 L ABG Base Excess ABG Hemoglobin ABG Oxyhemoglobin ABG Sodium ABG Potassium ABG Glucose Oxyhemoglobin 92.1 L Sodium Potassium Chloride Carbon Dioxide BUN Creatinine Glucose POC Glucose 359 H Lactic Acid Calcium Phosphorus Magnesium Ferritin Lactate Dehydrogenase C-Reactive Protein NT-Pro-B Natriuret Pep Total Protein Albumin Triglycerides Arterial Blood Glucose Ur Specific [place] Coronavirus (PCR) 03/12/21 03/12/21 03/13/21 17:20 21:54 00:02 WBC RBC Hgb Hct MCV MCHC RDW Plt Count Lymph % (Auto) [place] % (Auto) Lymph # (Auto) [place] # (Auto) Seg Neutrophils % Seg Neuts % (Manual) Lymphocytes % (Manual) Monocytes % (Manual) Nucleated RBC % Seg Neutrophils # Seg Neutrophils # Man Lymphocytes # (Manual) Monocytes # (Manual) PT INR APTT D-Dimer Heparin Anti-Xa Level ABG pH 7.238 L POC ABG pCO2 71.9 H POC ABG pO2 53.6 L ABG pO2 ABG HCO3 ABG O2 Saturation ABG Base Excess ABG Hemoglobin ABG Oxyhemoglobin 84.8 L ABG Sodium 134.2 L ABG Potassium 4.9 H ABG Glucose 306 H Oxyhemoglobin Sodium Potassium Chloride Carbon Dioxide BUN Creatinine Glucose POC Glucose 374 H 308 H Lactic Acid Calcium Phosphorus Magnesium Ferritin Lactate Dehydrogenase C-Reactive Protein NT-Pro-B Natriuret Pep Total Protein Albumin Triglycerides Arterial Blood Glucose 306 H Ur Specific [place] Coronavirus (PCR) 03/13/21 03/13/21 03/13/21 05:22 05:44 05:44 WBC 13.9 H RBC Hgb Hct MCV MCHC RDW Plt Count Lymph % (Auto) [place] % (Auto) Lymph # (Auto) [place] # (Auto) Seg Neutrophils % Seg Neuts % (Manual) Lymphocytes % (Manual) Monocytes % (Manual) Nucleated RBC % Seg Neutrophils # Seg Neutrophils # Man Lymphocytes # (Manual) Monocytes # (Manual) PT INR APTT D-Dimer 3567.97 H Heparin Anti-Xa Level ABG pH POC ABG pCO2 POC ABG pO2 ABG pO2 ABG HCO3 ABG O2 Saturation ABG Base Excess ABG Hemoglobin ABG Oxyhemoglobin ABG Sodium ABG Potassium ABG Glucose Oxyhemoglobin Sodium Potassium Chloride Carbon Dioxide BUN Creatinine Glucose POC Glucose 316 H Lactic Acid Calcium Phosphorus Magnesium Ferritin Lactate Dehydrogenase C-Reactive Protein NT-Pro-B Natriuret Pep Total Protein Albumin Triglycerides Arterial Blood Glucose Ur Specific [place] Coronavirus (PCR) 03/13/21 03/13/21 03/13/21 05:44 05:44 11:15 WBC RBC Hgb Hct MCV MCHC RDW Plt Count Lymph % (Auto) [place] % (Auto) Lymph # (Auto) [place] # (Auto) Seg Neutrophils % Seg Neuts % (Manual) Lymphocytes % (Manual) Monocytes % (Manual) Nucleated RBC % Seg Neutrophils # Seg Neutrophils # Man Lymphocytes # (Manual) Monocytes # (Manual) PT INR APTT D-Dimer Heparin Anti-Xa Level ABG pH 7.310 L POC ABG pCO2 POC ABG pO2 ABG pO2 52.3 L ABG HCO3 34.1 H ABG O2 Saturation 86.8 L ABG Base Excess 5.5 H ABG Hemoglobin 13.8 L ABG Oxyhemoglobin ABG Sodium ABG Potassium ABG Glucose Oxyhemoglobin 85.1 L Sodium Potassium Chloride Carbon Dioxide BUN Creatinine Glucose POC Glucose Lactic Acid Calcium Phosphorus Magnesium Ferritin 858.7 H Lactate Dehydrogenase 348 H C-Reactive Protein 2.80 H NT-Pro-B Natriuret Pep Total Protein Albumin Triglycerides Arterial Blood Glucose Ur Specific [place] Coronavirus (PCR) 03/13/21 03/13/21 03/13/21 11:21 15:47 19:23 WBC RBC Hgb Hct MCV MCHC RDW Plt Count Lymph % (Auto) [place] % (Auto) Lymph # (Auto) [place] # (Auto) Seg Neutrophils % Seg Neuts % (Manual) Lymphocytes % (Manual) Monocytes % (Manual) Nucleated RBC % Seg Neutrophils # Seg Neutrophils # Man Lymphocytes # (Manual) Monocytes # (Manual) PT INR APTT D-Dimer Heparin Anti-Xa Level ABG pH POC ABG pCO2 POC ABG pO2 ABG pO2 ABG HCO3 ABG O2 Saturation ABG Base Excess ABG Hemoglobin ABG Oxyhemoglobin ABG Sodium ABG Potassium ABG Glucose Oxyhemoglobin Sodium 136 L Potassium 5.9 H Chloride Carbon Dioxide BUN 50 H Creatinine Glucose 397 H POC Glucose 322 H 317 H Lactic Acid Calcium Phosphorus Magnesium Ferritin Lactate Dehydrogenase C-Reactive Protein NT-Pro-B Natriuret Pep Total Protein Albumin Triglycerides Arterial Blood Glucose Ur Specific [place] Coronavirus (PCR) 03/13/21 03/14/21 03/14/21 23:46 05:32 05:50 WBC 11.6 H RBC Hgb Hct MCV MCHC RDW Plt Count Lymph % (Auto) [place] % (Auto) Lymph # (Auto) [place] # (Auto) Seg Neutrophils % Seg Neuts % (Manual) Lymphocytes % (Manual) Monocytes % (Manual) Nucleated RBC % Seg Neutrophils # Seg Neutrophils # Man Lymphocytes # (Manual) Monocytes # (Manual) PT INR APTT D-Dimer Heparin Anti-Xa Level ABG pH POC ABG pCO2 POC ABG pO2 ABG pO2 ABG HCO3 ABG O2 Saturation ABG Base Excess ABG Hemoglobin ABG Oxyhemoglobin ABG Sodium ABG Potassium ABG Glucose Oxyhemoglobin Sodium Potassium Chloride Carbon Dioxide BUN Creatinine Glucose POC Glucose 332 H 316 H Lactic Acid Calcium Phosphorus Magnesium Ferritin Lactate Dehydrogenase C-Reactive Protein NT-Pro-B Natriuret Pep Total Protein Albumin Triglycerides Arterial Blood Glucose Ur Specific [place] Coronavirus (PCR) 0103/14/21 03/14/21 05:50 11:33 16:53 WBC RBC Hgb Hct MCV MCHC RDW Plt Count Lymph % (Auto) [place] % (Auto) Lymph # (Auto) [place] # (Auto) Seg Neutrophils % Seg Neuts % (Manual) Lymphocytes % (Manual) Monocytes % (Manual) Nucleated RBC % Seg Neutrophils # Seg Neutrophils # Man Lymphocytes # (Manual) Monocytes # (Manual) PT INR APTT D-Dimer Heparin Anti-Xa Level ABG pH POC ABG pCO2 POC ABG pO2 ABG pO2 ABG HCO3 ABG O2 Saturation ABG Base Excess ABG Hemoglobin ABG Oxyhemoglobin ABG Sodium ABG Potassium ABG Glucose Oxyhemoglobin Sodium Potassium 5.9 H Chloride Carbon Dioxide 31 H BUN 48 H Creatinine Glucose 380 H POC Glucose 315 H 235 H Lactic Acid Calcium Phosphorus Magnesium 3.40 H Ferritin Lactate Dehydrogenase C-Reactive Protein NT-Pro-B Natriuret Pep Total Protein Albumin Triglycerides Arterial Blood Glucose Ur Specific [place] Coronavirus (PCR) 03/14/21 03/14/21 03/15/21 18:34 23:27 01:22 WBC RBC Hgb Hct 46.3 H MCV MCHC RDW Plt Count Lymph % (Auto) [place] % (Auto) Lymph # (Auto) [place] # (Auto) Seg Neutrophils % Seg Neuts % (Manual) Lymphocytes % (Manual) Monocytes % (Manual) Nucleated RBC % Seg Neutrophils # Seg Neutrophils # Man Lymphocytes # (Manual) Monocytes # (Manual) PT INR APTT D-Dimer Heparin Anti-Xa Level ABG pH POC ABG pCO2 POC ABG pO2 ABG pO2 ABG HCO3 ABG O2 Saturation ABG Base Excess ABG Hemoglobin ABG Oxyhemoglobin ABG Sodium ABG Potassium ABG Glucose Oxyhemoglobin Sodium 146 H Potassium Chloride Carbon Dioxide 34 H BUN 49 H Creatinine Glucose 285 H POC Glucose 203 H Lactic Acid Calcium Phosphorus Magnesium Ferritin Lactate Dehydrogenase C-Reactive Protein NT-Pro-B Natriuret Pep Total Protein Albumin Triglycerides Arterial Blood Glucose Ur Specific [place] Coronavirus (PCR) 03/15/21 03/15/21 03/15/21 04:00 06:06 06:06 WBC RBC Hgb Hct MCV MCHC RDW Plt Count Lymph % (Auto) [place] % (Auto) Lymph # (Auto) [place] # (Auto) Seg Neutrophils % Seg Neuts % (Manual) Lymphocytes % (Manual) Monocytes % (Manual) Nucleated RBC % Seg Neutrophils # Seg Neutrophils # Man Lymphocytes # (Manual) Monocytes # (Manual) PT INR APTT D-Dimer 1781.79 H Heparin Anti-Xa Level ABG pH POC ABG pCO2 POC ABG pO2 ABG pO2 ABG HCO3 ABG O2 Saturation ABG Base Excess ABG Hemoglobin ABG Oxyhemoglobin ABG Sodium ABG Potassium ABG Glucose Oxyhemoglobin Sodium 148 H Potassium 5.7 H D Chloride 108.0 H Carbon Dioxide 31 H BUN 46 H Creatinine Glucose 139 H POC Glucose Lactic Acid Calcium Phosphorus 4.80 H D Magnesium 3.00 H Ferritin 976.4 H Lactate Dehydrogenase 630 H C-Reactive Protein NT-Pro-B Natriuret Pep Total Protein Albumin Triglycerides Arterial Blood Glucose Ur Specific [place] Coronavirus (PCR) 03/15/21 03/15/21 03/15/21 11:56 14:05 17:09 WBC RBC Hgb Hct MCV MCHC RDW Plt Count Lymph % (Auto) [place] % (Auto) Lymph # (Auto) [place] # (Auto) Seg Neutrophils % Seg Neuts % (Manual) Lymphocytes % (Manual) Monocytes % (Manual) Nucleated RBC % Seg Neutrophils # Seg Neutrophils # Man Lymphocytes # (Manual) Monocytes # (Manual) PT INR APTT D-Dimer Heparin Anti-Xa Level ABG pH POC ABG pCO2 POC ABG pO2 ABG pO2 52.1 L ABG HCO3 36.6 H ABG O2 Saturation 87.6 L ABG Base Excess 9.5 H ABG Hemoglobin ABG Oxyhemoglobin ABG Sodium ABG Potassium ABG Glucose Oxyhemoglobin 85.7 L Sodium Potassium Chloride Carbon Dioxide BUN Creatinine Glucose POC Glucose 219 H 263 H Lactic Acid Calcium Phosphorus Magnesium Ferritin Lactate Dehydrogenase C-Reactive Protein NT-Pro-B Natriuret Pep Total Protein Albumin Triglycerides Arterial Blood Glucose Ur Specific [place] Coronavirus (PCR) 03/16/21 03/16/21 03/16/21 00:32 04:11 04:11 WBC 11.9 H RBC Hgb Hct MCV MCHC 30 L RDW Plt Count Lymph % (Auto) [place] % (Auto) Lymph # (Auto) [place] # (Auto) Seg Neutrophils % Seg Neuts % (Manual) Lymphocytes % (Manual) Monocytes % (Manual) Nucleated RBC % Seg Neutrophils # Seg Neutrophils # Man Lymphocytes # (Manual) Monocytes # (Manual) PT INR APTT D-Dimer Heparin Anti-Xa Level ABG pH POC ABG pCO2 POC ABG pO2 ABG pO2 ABG HCO3 ABG O2 Saturation ABG Base Excess ABG Hemoglobin ABG Oxyhemoglobin ABG Sodium ABG Potassium ABG Glucose Oxyhemoglobin Sodium 151 H Potassium Chloride Carbon Dioxide 35 H BUN 48 H Creatinine Glucose 152 H POC Glucose 165 H Lactic Acid Calcium Phosphorus Magnesium Ferritin Lactate Dehydrogenase C-Reactive Protein NT-Pro-B Natriuret Pep Total Protein Albumin Triglycerides Arterial Blood Glucose Ur Specific [place] Coronavirus (PCR) 03/16/21 03/16/21 03/16/21 04:11 05:26 11:35 WBC RBC Hgb Hct MCV MCHC RDW Plt Count Lymph % (Auto) [place] % (Auto) Lymph # (Auto) [place] # (Auto) Seg Neutrophils % Seg Neuts % (Manual) Lymphocytes % (Manual) Monocytes % (Manual) Nucleated RBC % Seg Neutrophils # Seg Neutrophils # Man Lymphocytes # (Manual) Monocytes # (Manual) PT INR APTT D-Dimer Heparin Anti-Xa Level ABG pH POC ABG pCO2 POC ABG pO2 ABG pO2 ABG HCO3 ABG O2 Saturation ABG Base Excess ABG Hemoglobin ABG Oxyhemoglobin ABG Sodium ABG Potassium ABG Glucose Oxyhemoglobin Sodium Potassium Chloride Carbon Dioxide BUN Creatinine Glucose POC Glucose 162 H 187 H Lactic Acid Calcium Phosphorus Magnesium Ferritin Lactate Dehydrogenase C-Reactive Protein NT-Pro-B Natriuret Pep Total Protein Albumin Triglycerides 267 H Arterial Blood Glucose Ur Specific [place] Coronavirus (PCR) 03/16/21 03/16/21 03/16/21 17:29 22:25 23:22 WBC RBC Hgb Hct MCV MCHC RDW Plt Count Lymph % (Auto) [place] % (Auto) Lymph # (Auto) [place] # (Auto) Seg Neutrophils % Seg Neuts % (Manual) Lymphocytes % (Manual) Monocytes % (Manual) Nucleated RBC % Seg Neutrophils # Seg Neutrophils # Man Lymphocytes # (Manual) Monocytes # (Manual) PT INR APTT D-Dimer Heparin Anti-Xa Level ABG pH POC ABG pCO2 POC ABG pO2 ABG pO2 ABG HCO3 ABG O2 Saturation ABG Base Excess ABG Hemoglobin ABG Oxyhemoglobin ABG Sodium ABG Potassium ABG Glucose Oxyhemoglobin Sodium Potassium Chloride Carbon Dioxide BUN Creatinine Glucose POC Glucose 237 H 165 H 189 H Lactic Acid Calcium Phosphorus Magnesium Ferritin Lactate Dehydrogenase C-Reactive Protein NT-Pro-B Natriuret Pep Total Protein Albumin Triglycerides Arterial Blood Glucose Ur Specific [place] Coronavirus (PCR) 03/17/21 03/17/21 03/17/21 04:40 04:40 04:40 WBC 14.1 H RBC Hgb Hct MCV MCHC RDW 15.3 H Plt Count Lymph % (Auto) 12.6 L [place] % (Auto) 11.3 H Lymph # (Auto) [place] # (Auto) 1.6 H Seg Neutrophils % 74.9 H Seg Neuts % (Manual) Lymphocytes % (Manual) Monocytes % (Manual) Nucleated RBC % Seg Neutrophils # 10.5 H Seg Neutrophils # Man Lymphocytes # (Manual) Monocytes # (Manual) PT INR APTT D-Dimer 1359.12 H Heparin Anti-Xa Level ABG pH POC ABG pCO2 POC ABG pO2 ABG pO2 ABG HCO3 ABG O2 Saturation ABG Base Excess ABG Hemoglobin ABG Oxyhemoglobin ABG Sodium ABG Potassium ABG Glucose Oxyhemoglobin Sodium 148 H Potassium Chloride 107.5 H Carbon Dioxide 33 H BUN 42 H Creatinine Glucose 183 H POC Glucose Lactic Acid Calcium Phosphorus Magnesium 2.70 H Ferritin Lactate Dehydrogenase C-Reactive Protein NT-Pro-B Natriuret Pep Total Protein Albumin Triglycerides Arterial Blood Glucose Ur Specific [place] Coronavirus (PCR) 03/17/21 03/17/21 03/17/21 05:53 11:05 11:51 WBC RBC Hgb Hct MCV MCHC RDW Plt Count Lymph % (Auto) [place] % (Auto) Lymph # (Auto) [place] # (Auto) Seg Neutrophils % Seg Neuts % (Manual) Lymphocytes % (Manual) Monocytes % (Manual) Nucleated RBC % Seg Neutrophils # Seg Neutrophils # Man Lymphocytes # (Manual) Monocytes # (Manual) PT INR APTT D-Dimer Heparin Anti-Xa Level ABG pH POC ABG pCO2 POC ABG pO2 ABG pO2 ABG HCO3 35.7 H ABG O2 Saturation ABG Base Excess 8.7 H ABG Hemoglobin ABG Oxyhemoglobin ABG Sodium ABG Potassium ABG Glucose Oxyhemoglobin 94.2 L Sodium Potassium Chloride Carbon Dioxide BUN Creatinine Glucose POC Glucose 176 H 197 H Lactic Acid Calcium Phosphorus Magnesium Ferritin Lactate Dehydrogenase C-Reactive Protein NT-Pro-B Natriuret Pep Total Protein Albumin Triglycerides Arterial Blood Glucose Ur Specific [place] Coronavirus (PCR) 03/17/21 03/17/21 03/17/21 16:54 21:10 23:33 WBC RBC Hgb Hct MCV MCHC RDW Plt Count Lymph % (Auto) [place] % (Auto) Lymph # (Auto) [place] # (Auto) Seg Neutrophils % Seg Neuts % (Manual) Lymphocytes % (Manual) Monocytes % (Manual) Nucleated RBC % Seg Neutrophils # Seg Neutrophils # Man Lymphocytes # (Manual) Monocytes # (Manual) PT INR APTT D-Dimer Heparin Anti-Xa Level ABG pH POC ABG pCO2 POC ABG pO2 ABG pO2 ABG HCO3 ABG O2 Saturation ABG Base Excess ABG Hemoglobin ABG Oxyhemoglobin ABG Sodium ABG Potassium ABG Glucose Oxyhemoglobin Sodium Potassium Chloride Carbon Dioxide BUN Creatinine Glucose POC Glucose 135 H 160 H 138 H Lactic Acid Calcium Phosphorus Magnesium Ferritin Lactate Dehydrogenase C-Reactive Protein NT-Pro-B Natriuret Pep Total Protein Albumin Triglycerides Arterial Blood Glucose Ur Specific [place] Coronavirus (PCR) 03/18/21 03/18/21 03/18/21 04:18 04:50 05:43 WBC RBC Hgb Hct MCV MCHC RDW Plt Count Lymph % (Auto) [place] % (Auto) Lymph # (Auto) [place] # (Auto) Seg Neutrophils % Seg Neuts % (Manual) Lymphocytes % (Manual) Monocytes % (Manual) Nucleated RBC % Seg Neutrophils # Seg Neutrophils # Man Lymphocytes # (Manual) Monocytes # (Manual) PT INR APTT D-Dimer Heparin Anti-Xa Level ABG pH POC ABG pCO2 POC ABG pO2 ABG pO2 59.8 L ABG HCO3 36.5 H ABG O2 Saturation 90.7 L ABG Base Excess 9.4 H ABG Hemoglobin 12.0 L ABG Oxyhemoglobin ABG Sodium ABG Potassium ABG Glucose Oxyhemoglobin 88.9 L Sodium Potassium Chloride 107.2 H Carbon Dioxide 34 H BUN 38 H Creatinine 0.7 L Glucose 136 H POC Glucose 128 H Lactic Acid Calcium Phosphorus Magnesium Ferritin Lactate Dehydrogenase C-Reactive Protein NT-Pro-B Natriuret Pep Total Protein Albumin Triglycerides Arterial Blood Glucose Ur Specific [place] Coronavirus (PCR) 03/18/21 03/18/21 03/18/21 11:20 17:35 23:35 WBC RBC Hgb Hct MCV MCHC RDW Plt Count Lymph % (Auto) [place] % (Auto) Lymph # (Auto) [place] # (Auto) Seg Neutrophils % Seg Neuts % (Manual) Lymphocytes % (Manual) Monocytes % (Manual) Nucleated RBC % Seg Neutrophils # Seg Neutrophils # Man Lymphocytes # (Manual) Monocytes # (Manual) PT INR APTT D-Dimer Heparin Anti-Xa Level ABG pH POC ABG pCO2 POC ABG pO2 ABG pO2 70.7 L ABG HCO3 33.6 H ABG O2 Saturation ABG Base Excess 8.0 H ABG Hemoglobin ABG Oxyhemoglobin ABG Sodium ABG Potassium ABG Glucose Oxyhemoglobin 93.7 L Sodium Potassium Chloride Carbon Dioxide BUN Creatinine Glucose POC Glucose 189 H 144 H Lactic Acid Calcium Phosphorus Magnesium Ferritin Lactate Dehydrogenase C-Reactive Protein NT-Pro-B Natriuret Pep Total Protein Albumin Triglycerides Arterial Blood Glucose Ur Specific [place] Coronavirus (PCR) 03/19/21 03/19/21 03/19/21 02:35 04:20 04:20 WBC 14.0 H RBC Hgb Hct MCV MCHC RDW Plt Count Lymph % (Auto) [place] % (Auto) Lymph # (Auto) [place] # (Auto) Seg Neutrophils % Seg Neuts % (Manual) Lymphocytes % (Manual) Monocytes % (Manual) Nucleated RBC % Seg Neutrophils # Seg Neutrophils # Man Lymphocytes # (Manual) Monocytes # (Manual) PT INR APTT D-Dimer Heparin Anti-Xa Level ABG pH POC ABG pCO2 POC ABG pO2 ABG pO2 ABG HCO3 32.0 H ABG O2 Saturation ABG Base Excess 5.2 H ABG Hemoglobin 13.6 L ABG Oxyhemoglobin ABG Sodium ABG Potassium ABG Glucose Oxyhemoglobin 94.6 L Sodium 146 H Potassium Chloride 109.3 H Carbon Dioxide BUN 36 H Creatinine Glucose 203 H POC Glucose Lactic Acid Calcium Phosphorus Magnesium Ferritin Lactate Dehydrogenase C-Reactive Protein NT-Pro-B Natriuret Pep Total Protein Albumin Triglycerides 254 H Arterial Blood Glucose Ur Specific [place] Coronavirus (PCR) 03/19/21 03/19/21 03/19/21 05:45 11:36 23:51 WBC RBC Hgb Hct MCV MCHC RDW Plt Count Lymph % (Auto) [place] % (Auto) Lymph # (Auto) [place] # (Auto) Seg Neutrophils % Seg Neuts % (Manual) Lymphocytes % (Manual) Monocytes % (Manual) Nucleated RBC % Seg Neutrophils # Seg Neutrophils # Man Lymphocytes # (Manual) Monocytes # (Manual) PT INR APTT D-Dimer Heparin Anti-Xa Level ABG pH POC ABG pCO2 POC ABG pO2 ABG pO2 ABG HCO3 ABG O2 Saturation ABG Base Excess ABG Hemoglobin ABG Oxyhemoglobin ABG Sodium ABG Potassium ABG Glucose Oxyhemoglobin Sodium Potassium Chloride Carbon Dioxide BUN Creatinine Glucose POC Glucose 164 H 172 H 140 H Lactic Acid Calcium Phosphorus Magnesium Ferritin Lactate Dehydrogenase C-Reactive Protein NT-Pro-B Natriuret Pep Total Protein Albumin Triglycerides Arterial Blood Glucose Ur Specific [place] Coronavirus (PCR) 03/20/21 03/20/21 03/20/21 03:29 04:45 04:45 WBC RBC Hgb Hct MCV 95 H MCHC RDW 15.7 H Plt Count Lymph % (Auto) [place] % (Auto) Lymph # (Auto) [place] # (Auto) Seg Neutrophils % Seg Neuts % (Manual) Lymphocytes % (Manual) Monocytes % (Manual) Nucleated RBC % Seg Neutrophils # Seg Neutrophils # Man Lymphocytes # (Manual) Monocytes # (Manual) PT INR APTT D-Dimer Heparin Anti-Xa Level ABG pH 7.349 L POC ABG pCO2 POC ABG pO2 ABG pO2 ABG HCO3 33.7 H ABG O2 Saturation ABG Base Excess 6.4 H ABG Hemoglobin 11.8 L ABG Oxyhemoglobin ABG Sodium ABG Potassium ABG Glucose Oxyhemoglobin 93.9 L Sodium 146 H Potassium 5.5 H Chloride 111.1 H Carbon Dioxide BUN 34 H Creatinine 0.7 L Glucose 145 H POC Glucose Lactic Acid Calcium Phosphorus Magnesium 2.50 H Ferritin Lactate Dehydrogenase C-Reactive Protein NT-Pro-B Natriuret Pep Total Protein Albumin Triglycerides Arterial Blood Glucose Ur Specific [place] Coronavirus (PCR) 03/20/21 03/20/21 03/20/21 05:41 09:08 11:54 WBC RBC Hgb Hct MCV MCHC RDW Plt Count Lymph % (Auto) [place] % (Auto) Lymph # (Auto) [place] # (Auto) Seg Neutrophils % Seg Neuts % (Manual) Lymphocytes % (Manual) Monocytes % (Manual) Nucleated RBC % Seg Neutrophils # Seg Neutrophils # Man Lymphocytes # (Manual) Monocytes # (Manual) PT INR APTT D-Dimer Heparin Anti-Xa Level ABG pH POC ABG pCO2 POC ABG pO2 ABG pO2 ABG HCO3 ABG O2 Saturation ABG Base Excess ABG Hemoglobin ABG Oxyhemoglobin ABG Sodium ABG Potassium ABG Glucose Oxyhemoglobin Sodium Potassium Chloride Carbon Dioxide BUN Creatinine Glucose POC Glucose 108 H 132 H 162 H Lactic Acid Calcium Phosphorus Magnesium Ferritin Lactate Dehydrogenase C-Reactive Protein NT-Pro-B Natriuret Pep Total Protein Albumin Triglycerides Arterial Blood Glucose Ur Specific [place] Coronavirus (PCR) 03/20/21 03/21/21 03/21/21 17:28 00:31 04:44 WBC RBC Hgb Hct MCV MCHC RDW Plt Count Lymph % (Auto) [place] % (Auto) Lymph # (Auto) [place] # (Auto) Seg Neutrophils % Seg Neuts % (Manual) Lymphocytes % (Manual) Monocytes % (Manual) Nucleated RBC % Seg Neutrophils # Seg Neutrophils # Man Lymphocytes # (Manual) Monocytes # (Manual) PT INR APTT D-Dimer Heparin Anti-Xa Level ABG pH POC ABG pCO2 POC ABG pO2 ABG pO2 ABG HCO3 ABG O2 Saturation ABG Base Excess ABG Hemoglobin ABG Oxyhemoglobin ABG Sodium ABG Potassium ABG Glucose Oxyhemoglobin Sodium Potassium Chloride 108.3 H Carbon Dioxide BUN 30 H Creatinine 0.7 L Glucose POC Glucose 160 H 122 H Lactic Acid Calcium Phosphorus Magnesium Ferritin Lactate Dehydrogenase C-Reactive Protein NT-Pro-B Natriuret Pep Total Protein Albumin Triglycerides Arterial Blood Glucose Ur Specific [place] Coronavirus (PCR) 03/21/21 03/21/21 03/21/21 09:18 10:09 13:20 WBC RBC Hgb Hct MCV MCHC RDW Plt Count Lymph % (Auto) [place] % (Auto) Lymph # (Auto) [place] # (Auto) Seg Neutrophils % Seg Neuts % (Manual) Lymphocytes % (Manual) Monocytes % (Manual) Nucleated RBC % Seg Neutrophils # Seg Neutrophils # Man Lymphocytes # (Manual) Monocytes # (Manual) PT INR APTT D-Dimer Heparin Anti-Xa Level ABG pH POC ABG pCO2 POC ABG pO2 ABG pO2 60.7 L ABG HCO3 30.6 H ABG O2 Saturation 93.6 L ABG Base Excess 5.3 H ABG Hemoglobin ABG Oxyhemoglobin ABG Sodium ABG Potassium ABG Glucose Oxyhemoglobin 91.7 L Sodium Potassium Chloride Carbon Dioxide BUN Creatinine Glucose POC Glucose 169 H 122 H Lactic Acid Calcium Phosphorus Magnesium Ferritin Lactate Dehydrogenase C-Reactive Protein NT-Pro-B Natriuret Pep Total Protein Albumin Triglycerides Arterial Blood Glucose Ur Specific [place] Coronavirus (PCR) 03/21/21 03/21/21 03/21/21 17:25 22:41 23:52 WBC RBC Hgb Hct MCV MCHC RDW Plt Count Lymph % (Auto) [place] % (Auto) Lymph # (Auto) [place] # (Auto) Seg Neutrophils % Seg Neuts % (Manual) Lymphocytes % (Manual) Monocytes % (Manual) Nucleated RBC % Seg Neutrophils # Seg Neutrophils # Man Lymphocytes # (Manual) Monocytes # (Manual) PT INR APTT D-Dimer Heparin Anti-Xa Level ABG pH POC ABG pCO2 POC ABG pO2 ABG pO2 ABG HCO3 ABG O2 Saturation ABG Base Excess ABG Hemoglobin ABG Oxyhemoglobin ABG Sodium ABG Potassium ABG Glucose Oxyhemoglobin Sodium Potassium Chloride Carbon Dioxide BUN Creatinine Glucose POC Glucose 121 H 139 H 140 H Lactic Acid Calcium Phosphorus Magnesium Ferritin Lactate Dehydrogenase C-Reactive Protein NT-Pro-B Natriuret Pep Total Protein Albumin Triglycerides Arterial Blood Glucose Ur Specific [place] Coronavirus (PCR) 03/22/21 03/22/21 03/22/21 05:58 07:26 07:26 WBC RBC Hgb Hct MCV MCHC 31 L RDW 16.1 H Plt Count Lymph % (Auto) [place] % (Auto) Lymph # (Auto) [place] # (Auto) Seg Neutrophils % Seg Neuts % (Manual) Lymphocytes % (Manual) Monocytes % (Manual) Nucleated RBC % Seg Neutrophils # Seg Neutrophils # Man Lymphocytes # (Manual) Monocytes # (Manual) PT INR APTT D-Dimer Heparin Anti-Xa Level ABG pH POC ABG pCO2 POC ABG pO2 ABG pO2 ABG HCO3 ABG O2 Saturation ABG Base Excess ABG Hemoglobin ABG Oxyhemoglobin ABG Sodium ABG Potassium ABG Glucose Oxyhemoglobin Sodium Potassium Chloride 108.5 H Carbon Dioxide BUN 44 H Creatinine Glucose 120 H POC Glucose 131 H Lactic Acid Calcium Phosphorus 5.80 H Magnesium 2.80 H Ferritin Lactate Dehydrogenase C-Reactive Protein NT-Pro-B Natriuret Pep Total Protein Albumin Triglycerides 305 H Arterial Blood Glucose Ur Specific [place] Coronavirus (PCR) 03/22/21 03/22/21 03/22/21 09:38 11:15 16:01 WBC RBC Hgb Hct MCV MCHC RDW Plt Count Lymph % (Auto) [place] % (Auto) Lymph # (Auto) [place] # (Auto) Seg Neutrophils % Seg Neuts % (Manual) Lymphocytes % (Manual) Monocytes % (Manual) Nucleated RBC % Seg Neutrophils # Seg Neutrophils # Man Lymphocytes # (Manual) Monocytes # (Manual) PT INR APTT D-Dimer Heparin Anti-Xa Level ABG pH POC ABG pCO2 POC ABG pO2 ABG pO2 70.0 L ABG HCO3 30.0 H ABG O2 Saturation 94.6 L ABG Base Excess 3.6 H ABG Hemoglobin 13.5 L ABG Oxyhemoglobin ABG Sodium ABG Potassium ABG Glucose Oxyhemoglobin 92.5 L Sodium Potassium Chloride Carbon Dioxide BUN Creatinine Glucose POC Glucose 186 H 148 H Lactic Acid Calcium Phosphorus Magnesium Ferritin Lactate Dehydrogenase C-Reactive Protein NT-Pro-B Natriuret Pep Total Protein Albumin Triglycerides Arterial Blood Glucose Ur Specific [place] Coronavirus (PCR) 03/22/21 03/22/21 03/23/21 21:13 23:48 07:04 WBC 11.7 H RBC Hgb Hct MCV 95 H MCHC RDW 16.1 H Plt Count Lymph % (Auto) [place] % (Auto) Lymph # (Auto) [place] # (Auto) Seg Neutrophils % Seg Neuts % (Manual) Lymphocytes % (Manual) Monocytes % (Manual) Nucleated RBC % Seg Neutrophils # Seg Neutrophils # Man Lymphocytes # (Manual) Monocytes # (Manual) PT INR APTT D-Dimer Heparin Anti-Xa Level ABG pH POC ABG pCO2 POC ABG pO2 ABG pO2 ABG HCO3 ABG O2 Saturation ABG Base Excess ABG Hemoglobin ABG Oxyhemoglobin ABG Sodium ABG Potassium ABG Glucose Oxyhemoglobin Sodium Potassium Chloride Carbon Dioxide BUN Creatinine Glucose POC Glucose 121 H 114 H Lactic Acid Calcium Phosphorus Magnesium Ferritin Lactate Dehydrogenase C-Reactive Protein NT-Pro-B Natriuret Pep Total Protein Albumin Triglycerides Arterial Blood Glucose Ur Specific [place] Coronavirus (PCR) 03/23/21 03/23/21 03/23/21 07:04 08:35 11:19 WBC RBC Hgb Hct MCV MCHC RDW Plt Count Lymph % (Auto) [place] % (Auto) Lymph # (Auto) [place] # (Auto) Seg Neutrophils % Seg Neuts % (Manual) Lymphocytes % (Manual) Monocytes % (Manual) Nucleated RBC % Seg Neutrophils # Seg Neutrophils # Man Lymphocytes # (Manual) Monocytes # (Manual) PT INR APTT D-Dimer Heparin Anti-Xa Level ABG pH 7.345 L POC ABG pCO2 POC ABG pO2 ABG pO2 167.9 H ABG HCO3 32.2 H ABG O2 Saturation ABG Base Excess 4.8 H ABG Hemoglobin 13.4 L ABG Oxyhemoglobin ABG Sodium ABG Potassium ABG Glucose Oxyhemoglobin Sodium 148 H Potassium Chloride 111.3 H Carbon Dioxide 31 H BUN 31 H Creatinine Glucose 131 H POC Glucose 165 H Lactic Acid Calcium Phosphorus Magnesium 2.50 H Ferritin Lactate Dehydrogenase C-Reactive Protein NT-Pro-B Natriuret Pep Total Protein Albumin Triglycerides Arterial Blood Glucose Ur Specific [place] Coronavirus (PCR) 03/23/21 03/23/21 03/24/21 16:48 20:52 00:07 WBC RBC Hgb Hct MCV MCHC RDW Plt Count Lymph % (Auto) [place] % (Auto) Lymph # (Auto) [place] # (Auto) Seg Neutrophils % Seg Neuts % (Manual) Lymphocytes % (Manual) Monocytes % (Manual) Nucleated RBC % Seg Neutrophils # Seg Neutrophils # Man Lymphocytes # (Manual) Monocytes # (Manual) PT INR APTT D-Dimer Heparin Anti-Xa Level ABG pH POC ABG pCO2 POC ABG pO2 ABG pO2 ABG HCO3 ABG O2 Saturation ABG Base Excess ABG Hemoglobin ABG Oxyhemoglobin ABG Sodium ABG Potassium ABG Glucose Oxyhemoglobin Sodium Potassium Chloride Carbon Dioxide BUN Creatinine Glucose POC Glucose 160 H 127 H 147 H Lactic Acid Calcium Phosphorus Magnesium Ferritin Lactate Dehydrogenase C-Reactive Protein NT-Pro-B Natriuret Pep Total Protein Albumin Triglycerides Arterial Blood Glucose Ur Specific [place] Coronavirus (PCR) 03/24/21 03/24/21 03/24/21 04:34 04:34 05:20 WBC 13.3 H RBC Hgb Hct MCV MCHC 31 L RDW 16.1 H Plt Count Lymph % (Auto) [place] % (Auto) Lymph # (Auto) [place] # (Auto) Seg Neutrophils % Seg Neuts % (Manual) Lymphocytes % (Manual) Monocytes % (Manual) Nucleated RBC % Seg Neutrophils # Seg Neutrophils # Man Lymphocytes # (Manual) Monocytes # (Manual) PT INR APTT D-Dimer Heparin Anti-Xa Level ABG pH POC ABG pCO2 POC ABG pO2 ABG pO2 ABG HCO3 ABG O2 Saturation ABG Base Excess ABG Hemoglobin ABG Oxyhemoglobin ABG Sodium ABG Potassium ABG Glucose Oxyhemoglobin Sodium Potassium 5.2 H Chloride Carbon Dioxide BUN 28 H Creatinine 0.7 L Glucose 152 H POC Glucose 141 H Lactic Acid Calcium Phosphorus Magnesium Ferritin Lactate Dehydrogenase C-Reactive Protein NT-Pro-B Natriuret Pep Total Protein Albumin Triglycerides Arterial Blood Glucose Ur Specific [place] Coronavirus (PCR) 0103/24/21 03/24/21 09:40 11:38 16:45 WBC RBC Hgb Hct MCV MCHC RDW Plt Count Lymph % (Auto) [place] % (Auto) Lymph # (Auto) [place] # (Auto) Seg Neutrophils % Seg Neuts % (Manual) Lymphocytes % (Manual) Monocytes % (Manual) Nucleated RBC % Seg Neutrophils # Seg Neutrophils # Man Lymphocytes # (Manual) Monocytes # (Manual) PT INR APTT D-Dimer Heparin Anti-Xa Level ABG pH POC ABG pCO2 POC ABG pO2 ABG pO2 ABG HCO3 ABG O2 Saturation ABG Base Excess ABG Hemoglobin ABG Oxyhemoglobin ABG Sodium ABG Potassium ABG Glucose Oxyhemoglobin Sodium Potassium Chloride Carbon Dioxide BUN Creatinine Glucose POC Glucose 126 H 136 H 118 H Lactic Acid Calcium Phosphorus Magnesium Ferritin Lactate Dehydrogenase C-Reactive Protein NT-Pro-B Natriuret Pep Total Protein Albumin Triglycerides Arterial Blood Glucose Ur Specific [place] Coronavirus (PCR) 03/24/21 03/24/21 03/25/21 21:03 23:49 04:32 WBC RBC Hgb Hct MCV MCHC RDW 16.1 H Plt Count 121 L Lymph % (Auto) [place] % (Auto) Lymph # (Auto) [place] # (Auto) Seg Neutrophils % Seg Neuts % (Manual) Lymphocytes % (Manual) Monocytes % (Manual) Nucleated RBC % Seg Neutrophils # Seg Neutrophils # Man Lymphocytes # (Manual) Monocytes # (Manual) PT INR APTT D-Dimer Heparin Anti-Xa Level ABG pH POC ABG pCO2 POC ABG pO2 ABG pO2 ABG HCO3 ABG O2 Saturation ABG Base Excess ABG Hemoglobin ABG Oxyhemoglobin ABG Sodium ABG Potassium ABG Glucose Oxyhemoglobin Sodium Potassium Chloride Carbon Dioxide BUN Creatinine Glucose POC Glucose 116 H 125 H Lactic Acid Calcium Phosphorus Magnesium Ferritin Lactate Dehydrogenase C-Reactive Protein NT-Pro-B Natriuret Pep Total Protein Albumin Triglycerides Arterial Blood Glucose Ur Specific [place] Coronavirus (PCR) 03/25/21 03/25/21 03/25/21 04:32 05:21 09:29 WBC RBC Hgb Hct MCV MCHC RDW Plt Count Lymph % (Auto) [place] % (Auto) Lymph # (Auto) [place] # (Auto) Seg Neutrophils % Seg Neuts % (Manual) Lymphocytes % (Manual) Monocytes % (Manual) Nucleated RBC % Seg Neutrophils # Seg Neutrophils # Man Lymphocytes # (Manual) Monocytes # (Manual) PT INR APTT D-Dimer Heparin Anti-Xa Level ABG pH POC ABG pCO2 POC ABG pO2 ABG pO2 ABG HCO3 ABG O2 Saturation ABG Base Excess ABG Hemoglobin ABG Oxyhemoglobin ABG Sodium ABG Potassium ABG Glucose Oxyhemoglobin Sodium 135 L D Potassium Chloride Carbon Dioxide BUN 25 H Creatinine 0.7 L Glucose 168 H POC Glucose 149 H 115 H Lactic Acid Calcium Phosphorus Magnesium Ferritin Lactate Dehydrogenase C-Reactive Protein NT-Pro-B Natriuret Pep Total Protein Albumin Triglycerides Arterial Blood Glucose Ur Specific [place] Coronavirus (PCR) 03/25/21 03/25/21 03/25/21 12:26 12:35 23:53 WBC RBC Hgb Hct MCV MCHC RDW Plt Count Lymph % (Auto) [place] % (Auto) Lymph # (Auto) [place] # (Auto) Seg Neutrophils % Seg Neuts % (Manual) Lymphocytes % (Manual) Monocytes % (Manual) Nucleated RBC % Seg Neutrophils # Seg Neutrophils # Man Lymphocytes # (Manual) Monocytes # (Manual) PT INR APTT D-Dimer Heparin Anti-Xa Level ABG pH POC ABG pCO2 POC ABG pO2 ABG pO2 100.5 H ABG HCO3 33.6 H ABG O2 Saturation ABG Base Excess 6.4 H ABG Hemoglobin 12.0 L ABG Oxyhemoglobin ABG Sodium ABG Potassium ABG Glucose Oxyhemoglobin Sodium Potassium Chloride Carbon Dioxide BUN Creatinine Glucose POC Glucose 108 H 137 H Lactic Acid Calcium Phosphorus Magnesium Ferritin Lactate Dehydrogenase C-Reactive Protein NT-Pro-B Natriuret Pep Total Protein Albumin Triglycerides Arterial Blood Glucose Ur Specific [place] Coronavirus (PCR) 03/26/21 03/26/21 03/26/21 05:14 07:09 07:09 WBC RBC Hgb Hct MCV MCHC RDW 16.5 H Plt Count 139 L Lymph % (Auto) [place] % (Auto) Lymph # (Auto) [place] # (Auto) Seg Neutrophils % Seg Neuts % (Manual) Lymphocytes % (Manual) Monocytes % (Manual) Nucleated RBC % Seg Neutrophils # Seg Neutrophils # Man Lymphocytes # (Manual) Monocytes # (Manual) PT INR APTT D-Dimer Heparin Anti-Xa Level ABG pH POC ABG pCO2 POC ABG pO2 ABG pO2 ABG HCO3 ABG O2 Saturation ABG Base Excess ABG Hemoglobin ABG Oxyhemoglobin ABG Sodium ABG Potassium ABG Glucose Oxyhemoglobin Sodium Potassium Chloride Carbon Dioxide BUN 22 H Creatinine 0.7 L Glucose 108 H POC Glucose 116 H Lactic Acid Calcium Phosphorus Magnesium Ferritin Lactate Dehydrogenase C-Reactive Protein NT-Pro-B Natriuret Pep Total Protein Albumin Triglycerides Arterial Blood Glucose Ur Specific [place] Coronavirus (PCR) 03/26/21 03/26/21 03/26/21 09:51 11:15 16:59 WBC RBC Hgb Hct MCV MCHC RDW Plt Count Lymph % (Auto) [place] % (Auto) Lymph # (Auto) [place] # (Auto) Seg Neutrophils % Seg Neuts % (Manual) Lymphocytes % (Manual) Monocytes % (Manual) Nucleated RBC % Seg Neutrophils # Seg Neutrophils # Man Lymphocytes # (Manual) Monocytes # (Manual) PT INR APTT D-Dimer Heparin Anti-Xa Level ABG pH POC ABG pCO2 POC ABG pO2 ABG pO2 ABG HCO3 ABG O2 Saturation ABG Base Excess ABG Hemoglobin ABG Oxyhemoglobin ABG Sodium ABG Potassium ABG Glucose Oxyhemoglobin Sodium Potassium Chloride Carbon Dioxide BUN Creatinine Glucose POC Glucose 107 H 119 H 174 H Lactic Acid Calcium Phosphorus Magnesium Ferritin Lactate Dehydrogenase C-Reactive Protein NT-Pro-B Natriuret Pep Total Protein Albumin Triglycerides Arterial Blood Glucose Ur Specific [place] Coronavirus (PCR) 03/26/21 03/27/21 03/27/21 22:18 07:08 10:28 WBC RBC Hgb Hct MCV 95 H MCHC RDW 16.2 H Plt Count 134 L Lymph % (Auto) [place] % (Auto) Lymph # (Auto) [place] # (Auto) Seg Neutrophils % Seg Neuts % (Manual) Lymphocytes % (Manual) Monocytes % (Manual) Nucleated RBC % Seg Neutrophils # Seg Neutrophils # Man Lymphocytes # (Manual) Monocytes # (Manual) PT INR APTT D-Dimer Heparin Anti-Xa Level ABG pH POC ABG pCO2 POC ABG pO2 ABG pO2 ABG HCO3 ABG O2 Saturation ABG Base Excess ABG Hemoglobin ABG Oxyhemoglobin ABG Sodium ABG Potassium ABG Glucose Oxyhemoglobin Sodium Potassium Chloride Carbon Dioxide BUN Creatinine Glucose POC Glucose 107 H 52 L Lactic Acid Calcium Phosphorus Magnesium Ferritin Lactate Dehydrogenase C-Reactive Protein NT-Pro-B Natriuret Pep Total Protein Albumin Triglycerides Arterial Blood Glucose Ur Specific [place] Coronavirus (PCR) 03/27/21 03/27/21 03/27/21 10:28 11:45 17:39 WBC RBC Hgb Hct MCV MCHC RDW Plt Count Lymph % (Auto) [place] % (Auto) Lymph # (Auto) [place] # (Auto) Seg Neutrophils % Seg Neuts % (Manual) Lymphocytes % (Manual) Monocytes % (Manual) Nucleated RBC % Seg Neutrophils # Seg Neutrophils # Man Lymphocytes # (Manual) Monocytes # (Manual) PT INR APTT D-Dimer Heparin Anti-Xa Level ABG pH POC ABG pCO2 POC ABG pO2 ABG pO2 ABG HCO3 ABG O2 Saturation ABG Base Excess ABG Hemoglobin ABG Oxyhemoglobin ABG Sodium ABG Potassium ABG Glucose Oxyhemoglobin Sodium 136 L Potassium Chloride Carbon Dioxide BUN Creatinine 0.7 L Glucose 150 H POC Glucose 121 H 165 H Lactic Acid Calcium Phosphorus Magnesium Ferritin Lactate Dehydrogenase C-Reactive Protein NT-Pro-B Natriuret Pep Total Protein Albumin Triglycerides Arterial Blood Glucose Ur Specific [place] Coronavirus (PCR) 03/28/21 03/28/21 03/28/21 07:14 11:42 18:22 WBC RBC Hgb Hct MCV MCHC RDW 16.4 H Plt Count Lymph % (Auto) [place] % (Auto) Lymph # (Auto) [place] # (Auto) Seg Neutrophils % Seg Neuts % (Manual) Lymphocytes % (Manual) Monocytes % (Manual) Nucleated RBC % Seg Neutrophils # Seg Neutrophils # Man Lymphocytes # (Manual) Monocytes # (Manual) PT INR APTT D-Dimer Heparin Anti-Xa Level ABG pH POC ABG pCO2 POC ABG pO2 ABG pO2 ABG HCO3 ABG O2 Saturation ABG Base Excess ABG Hemoglobin ABG Oxyhemoglobin ABG Sodium ABG Potassium ABG Glucose Oxyhemoglobin Sodium Potassium Chloride Carbon Dioxide BUN Creatinine Glucose POC Glucose 145 H 169 H Lactic Acid Calcium Phosphorus Magnesium Ferritin Lactate Dehydrogenase C-Reactive Protein NT-Pro-B Natriuret Pep Total Protein Albumin Triglycerides Arterial Blood Glucose Ur Specific [place] Coronavirus (PCR) 03/28/21 03/29/21 03/29/21 23:39 04:50 04:50 WBC RBC Hgb 11.0 L Hct 34.9 L MCV MCHC RDW 15.9 H Plt Count Lymph % (Auto) [place] % (Auto) Lymph # (Auto) [place] # (Auto) Seg Neutrophils % Seg Neuts % (Manual) Lymphocytes % (Manual) Monocytes % (Manual) Nucleated RBC % Seg Neutrophils # Seg Neutrophils # Man Lymphocytes # (Manual) Monocytes # (Manual) PT INR APTT D-Dimer Heparin Anti-Xa Level ABG pH POC ABG pCO2 POC ABG pO2 ABG pO2 ABG HCO3 ABG O2 Saturation ABG Base Excess ABG Hemoglobin ABG Oxyhemoglobin ABG Sodium ABG Potassium ABG Glucose Oxyhemoglobin Sodium Potassium Chloride Carbon Dioxide 34 H BUN Creatinine 0.6 L Glucose 152 H POC Glucose 139 H Lactic Acid Calcium Phosphorus Magnesium Ferritin Lactate Dehydrogenase C-Reactive Protein NT-Pro-B Natriuret Pep Total Protein Albumin Triglycerides Arterial Blood Glucose Ur Specific [place] Coronavirus (PCR) 03/29/21 03/29/21 03/29/21 05:25 11:34 18:02 WBC RBC Hgb Hct MCV MCHC RDW Plt Count Lymph % (Auto) [place] % (Auto) Lymph # (Auto) [place] # (Auto) Seg Neutrophils % Seg Neuts % (Manual) Lymphocytes % (Manual) Monocytes % (Manual) Nucleated RBC % Seg Neutrophils # Seg Neutrophils # Man Lymphocytes # (Manual) Monocytes # (Manual) PT INR APTT D-Dimer Heparin Anti-Xa Level ABG pH POC ABG pCO2 POC ABG pO2 ABG pO2 ABG HCO3 ABG O2 Saturation ABG Base Excess ABG Hemoglobin ABG Oxyhemoglobin ABG Sodium ABG Potassium ABG Glucose Oxyhemoglobin Sodium Potassium Chloride Carbon Dioxide BUN Creatinine Glucose POC Glucose 127 H 169 H 173 H Lactic Acid Calcium Phosphorus Magnesium Ferritin Lactate Dehydrogenase C-Reactive Protein NT-Pro-B Natriuret Pep Total Protein Albumin Triglycerides Arterial Blood Glucose Ur Specific [place] Coronavirus (PCR) 03/29/21 03/30/21 03/30/21 21:42 00:01 05:36 WBC RBC Hgb Hct MCV MCHC RDW 16.7 H Plt Count Lymph % (Auto) [place] % (Auto) Lymph # (Auto) [place] # (Auto) Seg Neutrophils % Seg Neuts % (Manual) Lymphocytes % (Manual) Monocytes % (Manual) Nucleated RBC % Seg Neutrophils # Seg Neutrophils # Man Lymphocytes # (Manual) Monocytes # (Manual) PT INR APTT D-Dimer Heparin Anti-Xa Level ABG pH POC ABG pCO2 POC ABG pO2 ABG pO2 ABG HCO3 ABG O2 Saturation ABG Base Excess ABG Hemoglobin ABG Oxyhemoglobin ABG Sodium ABG Potassium ABG Glucose Oxyhemoglobin Sodium Potassium Chloride Carbon Dioxide BUN Creatinine Glucose POC Glucose 184 H 161 H Lactic Acid Calcium Phosphorus Magnesium Ferritin Lactate Dehydrogenase C-Reactive Protein NT-Pro-B Natriuret Pep Total Protein Albumin Triglycerides Arterial Blood Glucose Ur Specific [place] Coronavirus (PCR) 03/30/21 03/30/21 03/30/21 05:36 06:03 11:32 WBC RBC Hgb Hct MCV MCHC RDW Plt Count Lymph % (Auto) [place] % (Auto) Lymph # (Auto) [place] # (Auto) Seg Neutrophils % Seg Neuts % (Manual) Lymphocytes % (Manual) Monocytes % (Manual) Nucleated RBC % Seg Neutrophils # Seg Neutrophils # Man Lymphocytes # (Manual) Monocytes # (Manual) PT INR APTT D-Dimer Heparin Anti-Xa Level ABG pH POC ABG pCO2 POC ABG pO2 ABG pO2 ABG HCO3 ABG O2 Saturation ABG Base Excess ABG Hemoglobin ABG Oxyhemoglobin ABG Sodium ABG Potassium ABG Glucose Oxyhemoglobin Sodium Potassium Chloride Carbon Dioxide BUN Creatinine 0.5 L Glucose 127 H POC Glucose 130 H 183 H Lactic Acid Calcium Phosphorus Magnesium Ferritin Lactate Dehydrogenase C-Reactive Protein NT-Pro-B Natriuret Pep Total Protein Albumin Triglycerides Arterial Blood Glucose Ur Specific [place] Coronavirus (PCR) 03/30/21 03/30/21 03/30/21 15:00 16:23 21:07 WBC RBC Hgb Hct MCV MCHC RDW Plt Count Lymph % (Auto) [place] % (Auto) Lymph # (Auto) [place] # (Auto) Seg Neutrophils % Seg Neuts % (Manual) Lymphocytes % (Manual) Monocytes % (Manual) Nucleated RBC % Seg Neutrophils # Seg Neutrophils # Man Lymphocytes # (Manual) Monocytes # (Manual) PT INR APTT D-Dimer Heparin Anti-Xa Level ABG pH POC ABG pCO2 POC ABG pO2 ABG pO2 67.2 L ABG HCO3 34.9 H ABG O2 Saturation ABG Base Excess 9.1 H ABG Hemoglobin 11.6 L ABG Oxyhemoglobin ABG Sodium ABG Potassium ABG Glucose Oxyhemoglobin 93.0 L Sodium Potassium Chloride Carbon Dioxide BUN Creatinine Glucose POC Glucose 162 H 146 H Lactic Acid Calcium Phosphorus Magnesium Ferritin Lactate Dehydrogenase C-Reactive Protein NT-Pro-B Natriuret Pep Total Protein Albumin Triglycerides Arterial Blood Glucose Ur Specific [place] Coronavirus (PCR) 03/30/21 03/31/21 03/31/21 23:23 05:44 11:19 WBC RBC Hgb Hct MCV MCHC RDW Plt Count Lymph % (Auto) [place] % (Auto) Lymph # (Auto) [place] # (Auto) Seg Neutrophils % Seg Neuts % (Manual) Lymphocytes % (Manual) Monocytes % (Manual) Nucleated RBC % Seg Neutrophils # Seg Neutrophils # Man Lymphocytes # (Manual) Monocytes # (Manual) PT INR APTT D-Dimer Heparin Anti-Xa Level ABG pH POC ABG pCO2 POC ABG pO2 ABG pO2 ABG HCO3 ABG O2 Saturation ABG Base Excess ABG Hemoglobin ABG Oxyhemoglobin ABG Sodium ABG Potassium ABG Glucose Oxyhemoglobin Sodium Potassium Chloride Carbon Dioxide BUN Creatinine Glucose POC Glucose 138 H 180 H 178 H Lactic Acid Calcium Phosphorus Magnesium Ferritin Lactate Dehydrogenase C-Reactive Protein NT-Pro-B Natriuret Pep Total Protein Albumin Triglycerides Arterial Blood Glucose Ur Specific [place] Coronavirus (PCR) 03/31/21 03/31/21 03/31/21 12:50 13:30 16:06 WBC RBC Hgb 11.3 L Hct 35.1 L MCV MCHC RDW 16.5 H Plt Count Lymph % (Auto) 7.6 L [place] % (Auto) 9.5 H Lymph # (Auto) 0.6 L [place] # (Auto) Seg Neutrophils % 78.3 H Seg Neuts % (Manual) Lymphocytes % (Manual) Monocytes % (Manual) Nucleated RBC % Seg Neutrophils # Seg Neutrophils # Man Lymphocytes # (Manual) Monocytes # (Manual) PT INR APTT D-Dimer Heparin Anti-Xa Level ABG pH POC ABG pCO2 POC ABG pO2 ABG pO2 99.4 H ABG HCO3 34.9 H ABG O2 Saturation ABG Base Excess 8.4 H ABG Hemoglobin 11.8 L ABG Oxyhemoglobin ABG Sodium ABG Potassium ABG Glucose Oxyhemoglobin Sodium Potassium Chloride Carbon Dioxide BUN Creatinine Glucose POC Glucose 197 H Lactic Acid Calcium Phosphorus Magnesium Ferritin Lactate Dehydrogenase C-Reactive Protein NT-Pro-B Natriuret Pep Total Protein Albumin Triglycerides Arterial Blood Glucose Ur Specific [place] Coronavirus (PCR) 03/31/21 04/01/21 04/01/21 20:51 05:37 07:16 WBC RBC 3.39 L Hgb 10.5 L Hct 31.6 L MCV MCHC RDW 16.1 H Plt Count Lymph % (Auto) [place] % (Auto) Lymph # (Auto) [place] # (Auto) Seg Neutrophils % Seg Neuts % (Manual) Lymphocytes % (Manual) Monocytes % (Manual) Nucleated RBC % Seg Neutrophils # Seg Neutrophils # Man Lymphocytes # (Manual) Monocytes # (Manual) PT INR APTT D-Dimer Heparin Anti-Xa Level ABG pH POC ABG pCO2 POC ABG pO2 ABG pO2 ABG HCO3 ABG O2 Saturation ABG Base Excess ABG Hemoglobin ABG Oxyhemoglobin ABG Sodium ABG Potassium ABG Glucose Oxyhemoglobin Sodium Potassium Chloride Carbon Dioxide BUN Creatinine Glucose POC Glucose 140 H 128 H Lactic Acid Calcium Phosphorus Magnesium Ferritin Lactate Dehydrogenase C-Reactive Protein NT-Pro-B Natriuret Pep Total Protein Albumin Triglycerides Arterial Blood Glucose Ur Specific [place] Coronavirus (PCR) 04/01/21 04/01/21 04/01/21 07:16 11:52 16:56 WBC RBC Hgb Hct MCV MCHC RDW Plt Count Lymph % (Auto) [place] % (Auto) Lymph # (Auto) [place] # (Auto) Seg Neutrophils % Seg Neuts % (Manual) Lymphocytes % (Manual) Monocytes % (Manual) Nucleated RBC % Seg Neutrophils # Seg Neutrophils # Man Lymphocytes # (Manual) Monocytes # (Manual) PT INR APTT D-Dimer Heparin Anti-Xa Level ABG pH POC ABG pCO2 POC ABG pO2 ABG pO2 ABG HCO3 ABG O2 Saturation ABG Base Excess ABG Hemoglobin ABG Oxyhemoglobin ABG Sodium ABG Potassium ABG Glucose Oxyhemoglobin Sodium Potassium Chloride Carbon Dioxide BUN Creatinine 0.6 L Glucose 131 H POC Glucose 182 H 179 H Lactic Acid Calcium 8.3 L Phosphorus Magnesium Ferritin Lactate Dehydrogenase C-Reactive Protein NT-Pro-B Natriuret Pep Total Protein Albumin Triglycerides Arterial Blood Glucose Ur Specific [place] Coronavirus (PCR) 04/01/21 04/01/21 04/02/21 21:30 23:40 04:26 WBC RBC 3.62 L Hgb 10.8 L Hct 33.9 L MCV MCHC RDW 16.0 H Plt Count Lymph % (Auto) [place] % (Auto) Lymph # (Auto) [place] # (Auto) Seg Neutrophils % Seg Neuts % (Manual) Lymphocytes % (Manual) Monocytes % (Manual) Nucleated RBC % Seg Neutrophils # Seg Neutrophils # Man Lymphocytes # (Manual) Monocytes # (Manual) PT INR APTT D-Dimer Heparin Anti-Xa Level ABG pH POC ABG pCO2 POC ABG pO2 ABG pO2 ABG HCO3 ABG O2 Saturation ABG Base Excess ABG Hemoglobin ABG Oxyhemoglobin ABG Sodium ABG Potassium ABG Glucose Oxyhemoglobin Sodium Potassium Chloride Carbon Dioxide BUN Creatinine Glucose POC Glucose 131 H 129 H Lactic Acid Calcium Phosphorus Magnesium Ferritin Lactate Dehydrogenase C-Reactive Protein NT-Pro-B Natriuret Pep Total Protein Albumin Triglycerides Arterial Blood Glucose Ur Specific [place] Coronavirus (PCR) 04/02/21 04/02/21 04/02/21 04:26 05:54 11:35 WBC RBC Hgb Hct MCV MCHC RDW Plt Count Lymph % (Auto) [place] % (Auto) Lymph # (Auto) [place] # (Auto) Seg Neutrophils % Seg Neuts % (Manual) Lymphocytes % (Manual) Monocytes % (Manual) Nucleated RBC % Seg Neutrophils # Seg Neutrophils # Man Lymphocytes # (Manual) Monocytes # (Manual) PT INR APTT D-Dimer Heparin Anti-Xa Level ABG pH POC ABG pCO2 POC ABG pO2 ABG pO2 ABG HCO3 ABG O2 Saturation ABG Base Excess ABG Hemoglobin ABG Oxyhemoglobin ABG Sodium ABG Potassium ABG Glucose Oxyhemoglobin Sodium 136 L Potassium Chloride Carbon Dioxide BUN Creatinine 0.6 L Glucose 152 H POC Glucose 151 H 178 H Lactic Acid Calcium Phosphorus Magnesium Ferritin Lactate Dehydrogenase C-Reactive Protein NT-Pro-B Natriuret Pep Total Protein Albumin Triglycerides Arterial Blood Glucose Ur Specific [place] Coronavirus (PCR) 04/02/21 04/02/21 04/02/21 16:11 21:09 23:38 WBC RBC Hgb Hct MCV MCHC RDW Plt Count Lymph % (Auto) [place] % (Auto) Lymph # (Auto) [place] # (Auto) Seg Neutrophils % Seg Neuts % (Manual) Lymphocytes % (Manual) Monocytes % (Manual) Nucleated RBC % Seg Neutrophils # Seg Neutrophils # Man Lymphocytes # (Manual) Monocytes # (Manual) PT INR APTT D-Dimer Heparin Anti-Xa Level ABG pH POC ABG pCO2 POC ABG pO2 ABG pO2 ABG HCO3 ABG O2 Saturation ABG Base Excess ABG Hemoglobin ABG Oxyhemoglobin ABG Sodium ABG Potassium ABG Glucose Oxyhemoglobin Sodium Potassium Chloride Carbon Dioxide BUN Creatinine Glucose POC Glucose 186 H 145 H 152 H Lactic Acid Calcium Phosphorus Magnesium Ferritin Lactate Dehydrogenase C-Reactive Protein NT-Pro-B Natriuret Pep Total Protein Albumin Triglycerides Arterial Blood Glucose Ur Specific [place] Coronavirus (PCR) 04/03/21 04/03/21 04/03/21 04:14 04:14 05:27 WBC RBC 3.62 L Hgb 11.0 L Hct 34.0 L MCV MCHC RDW 16.3 H Plt Count Lymph % (Auto) [place] % (Auto) Lymph # (Auto) [place] # (Auto) Seg Neutrophils % Seg Neuts % (Manual) Lymphocytes % (Manual) Monocytes % (Manual) Nucleated RBC % Seg Neutrophils # Seg Neutrophils # Man Lymphocytes # (Manual) Monocytes # (Manual) PT INR APTT D-Dimer Heparin Anti-Xa Level ABG pH POC ABG pCO2 POC ABG pO2 ABG pO2 ABG HCO3 ABG O2 Saturation ABG Base Excess ABG Hemoglobin ABG Oxyhemoglobin ABG Sodium ABG Potassium ABG Glucose Oxyhemoglobin Sodium Potassium Chloride Carbon Dioxide 31 H BUN Creatinine 0.6 L Glucose 155 H POC Glucose 165 H Lactic Acid Calcium Phosphorus Magnesium Ferritin Lactate Dehydrogenase C-Reactive Protein NT-Pro-B Natriuret Pep Total Protein Albumin Triglycerides Arterial Blood Glucose Ur Specific [place] Coronavirus (PCR) 04/03/21 04/03/21 04/03/21 11:02 16:19 19:45 WBC RBC Hgb Hct MCV MCHC RDW Plt Count Lymph % (Auto) [place] % (Auto) Lymph # (Auto) [place] # (Auto) Seg Neutrophils % Seg Neuts % (Manual) Lymphocytes % (Manual) Monocytes % (Manual) Nucleated RBC % Seg Neutrophils # Seg Neutrophils # Man Lymphocytes # (Manual) Monocytes # (Manual) PT INR APTT D-Dimer Heparin Anti-Xa Level ABG pH POC ABG pCO2 POC ABG pO2 ABG pO2 ABG HCO3 ABG O2 Saturation ABG Base Excess ABG Hemoglobin ABG Oxyhemoglobin ABG Sodium ABG Potassium ABG Glucose Oxyhemoglobin Sodium Potassium Chloride Carbon Dioxide BUN Creatinine Glucose POC Glucose 161 H 180 H 136 H Lactic Acid Calcium Phosphorus Magnesium Ferritin Lactate Dehydrogenase C-Reactive Protein NT-Pro-B Natriuret Pep Total Protein Albumin Triglycerides Arterial Blood Glucose Ur Specific [place] Coronavirus (PCR) 04/04/21 04/04/21 04/04/21 00:21 04:33 04:33 WBC 13.1 H RBC 3.49 L Hgb 10.3 L Hct 32.7 L MCV MCHC RDW 16.1 H Plt Count Lymph % (Auto) [place] % (Auto) Lymph # (Auto) [place] # (Auto) Seg Neutrophils % Seg Neuts % (Manual) Lymphocytes % (Manual) Monocytes % (Manual) Nucleated RBC % Seg Neutrophils # Seg Neutrophils # Man Lymphocytes # (Manual) Monocytes # (Manual) PT INR APTT D-Dimer Heparin Anti-Xa Level ABG pH POC ABG pCO2 POC ABG pO2 ABG pO2 ABG HCO3 ABG O2 Saturation ABG Base Excess ABG Hemoglobin ABG Oxyhemoglobin ABG Sodium ABG Potassium ABG Glucose Oxyhemoglobin Sodium Potassium Chloride Carbon Dioxide 31 H BUN Creatinine 0.4 L Glucose 153 H POC Glucose 140 H Lactic Acid Calcium Phosphorus Magnesium Ferritin Lactate Dehydrogenase C-Reactive Protein NT-Pro-B Natriuret Pep Total Protein Albumin Triglycerides Arterial Blood Glucose Ur Specific [place] Coronavirus (PCR) 04/04/21 04/04/21 04/04/21 05:16 11:39 17:22 WBC RBC Hgb Hct MCV MCHC RDW Plt Count Lymph % (Auto) [place] % (Auto) Lymph # (Auto) [place] # (Auto) Seg Neutrophils % Seg Neuts % (Manual) Lymphocytes % (Manual) Monocytes % (Manual) Nucleated RBC % Seg Neutrophils # Seg Neutrophils # Man Lymphocytes # (Manual) Monocytes # (Manual) PT INR APTT D-Dimer Heparin Anti-Xa Level ABG pH POC ABG pCO2 POC ABG pO2 ABG pO2 ABG HCO3 ABG O2 Saturation ABG Base Excess ABG Hemoglobin ABG Oxyhemoglobin ABG Sodium ABG Potassium ABG Glucose Oxyhemoglobin Sodium Potassium Chloride Carbon Dioxide BUN Creatinine Glucose POC Glucose 152 H 154 H 198 H Lactic Acid Calcium Phosphorus Magnesium Ferritin Lactate Dehydrogenase C-Reactive Protein NT-Pro-B Natriuret Pep Total Protein Albumin Triglycerides Arterial Blood Glucose Ur Specific [place] Coronavirus (PCR) 04/04/21 04/04/21 04/05/21 20:14 23:16 04:15 WBC RBC 3.21 L Hgb 10.0 L Hct 30.3 L MCV MCHC RDW 16.4 H Plt Count Lymph % (Auto) [place] % (Auto) Lymph # (Auto) [place] # (Auto) Seg Neutrophils % Seg Neuts % (Manual) Lymphocytes % (Manual) Monocytes % (Manual) Nucleated RBC % Seg Neutrophils # Seg Neutrophils # Man Lymphocytes # (Manual) Monocytes # (Manual) PT INR APTT D-Dimer Heparin Anti-Xa Level ABG pH POC ABG pCO2 POC ABG pO2 ABG pO2 ABG HCO3 ABG O2 Saturation ABG Base Excess ABG Hemoglobin ABG Oxyhemoglobin ABG Sodium ABG Potassium ABG Glucose Oxyhemoglobin Sodium Potassium Chloride Carbon Dioxide BUN Creatinine Glucose POC Glucose 161 H 139 H Lactic Acid Calcium Phosphorus Magnesium Ferritin Lactate Dehydrogenase C-Reactive Protein NT-Pro-B Natriuret Pep Total Protein Albumin Triglycerides Arterial Blood Glucose Ur Specific [place] Coronavirus (PCR) 04/05/21 04/05/21 04/05/21 04:15 05:34 12:09 WBC RBC Hgb Hct MCV MCHC RDW Plt Count Lymph % (Auto) [place] % (Auto) Lymph # (Auto) [place] # (Auto) Seg Neutrophils % Seg Neuts % (Manual) Lymphocytes % (Manual) Monocytes % (Manual) Nucleated RBC % Seg Neutrophils # Seg Neutrophils # Man Lymphocytes # (Manual) Monocytes # (Manual) PT INR APTT D-Dimer Heparin Anti-Xa Level ABG pH POC ABG pCO2 POC ABG pO2 ABG pO2 ABG HCO3 ABG O2 Saturation ABG Base Excess ABG Hemoglobin ABG Oxyhemoglobin ABG Sodium ABG Potassium ABG Glucose Oxyhemoglobin Sodium Potassium Chloride 97.6 L Carbon Dioxide 32 H BUN Creatinine 0.5 L Glucose 147 H POC Glucose 145 H 173 H Lactic Acid Calcium Phosphorus Magnesium Ferritin Lactate Dehydrogenase C-Reactive Protein NT-Pro-B Natriuret Pep Total Protein Albumin Triglycerides Arterial Blood Glucose Ur Specific [place] Coronavirus (PCR) 04/05/21 04/05/21 04/05/21 17:35 21:07 23:15 WBC RBC Hgb Hct MCV MCHC RDW Plt Count Lymph % (Auto) [place] % (Auto) Lymph # (Auto) [place] # (Auto) Seg Neutrophils % Seg Neuts % (Manual) Lymphocytes % (Manual) Monocytes % (Manual) Nucleated RBC % Seg Neutrophils # Seg Neutrophils # Man Lymphocytes # (Manual) Monocytes # (Manual) PT INR APTT D-Dimer Heparin Anti-Xa Level ABG pH POC ABG pCO2 POC ABG pO2 ABG pO2 ABG HCO3 ABG O2 Saturation ABG Base Excess ABG Hemoglobin ABG Oxyhemoglobin ABG Sodium ABG Potassium ABG Glucose Oxyhemoglobin Sodium Potassium Chloride Carbon Dioxide BUN Creatinine Glucose POC Glucose 143 H 157 H 171 H Lactic Acid Calcium Phosphorus Magnesium Ferritin Lactate Dehydrogenase C-Reactive Protein NT-Pro-B Natriuret Pep Total Protein Albumin Triglycerides Arterial Blood Glucose Ur Specific [place] Coronavirus (PCR) 04/06/21 04/06/21 04/06/21 04:49 05:14 11:42 WBC RBC Hgb Hct MCV MCHC RDW Plt Count Lymph % (Auto) [place] % (Auto) Lymph # (Auto) [place] # (Auto) Seg Neutrophils % Seg Neuts % (Manual) Lymphocytes % (Manual) Monocytes % (Manual) Nucleated RBC % Seg Neutrophils # Seg Neutrophils # Man Lymphocytes # (Manual) Monocytes # (Manual) PT INR APTT D-Dimer Heparin Anti-Xa Level ABG pH POC ABG pCO2 57.4 H POC ABG pO2 55.1 L ABG pO2 ABG HCO3 ABG O2 Saturation ABG Base Excess ABG Hemoglobin 11.5 L ABG Oxyhemoglobin 87.5 L ABG Sodium ABG Potassium ABG Glucose Oxyhemoglobin Sodium Potassium Chloride Carbon Dioxide BUN Creatinine Glucose POC Glucose 145 H 171 H Lactic Acid Calcium Phosphorus Magnesium Ferritin Lactate Dehydrogenase C-Reactive Protein NT-Pro-B Natriuret Pep Total Protein Albumin Triglycerides Arterial Blood Glucose Ur Specific [place] Coronavirus (PCR) 04/06/21 04/06/21 04/06/21 11:50 15:36 15:36 WBC RBC Hgb 10.4 L Hct 32.5 L MCV MCHC RDW Plt Count 444 H Lymph % (Auto) [place] % (Auto) Lymph # (Auto) [place] # (Auto) Seg Neutrophils % Seg Neuts % (Manual) Lymphocytes % (Manual) Monocytes % (Manual) Nucleated RBC % Seg Neutrophils # Seg Neutrophils # Man Lymphocytes # (Manual) Monocytes # (Manual) PT INR APTT 37.1 H D-Dimer Heparin Anti-Xa Level ABG pH 7.341 L POC ABG pCO2 POC ABG pO2 ABG pO2 108.9 H ABG HCO3 38.9 H ABG O2 Saturation ABG Base Excess 10.6 H ABG Hemoglobin 11.5 L ABG Oxyhemoglobin ABG Sodium ABG Potassium ABG Glucose Oxyhemoglobin Sodium Potassium Chloride Carbon Dioxide BUN Creatinine Glucose POC Glucose Lactic Acid Calcium Phosphorus Magnesium Ferritin Lactate Dehydrogenase C-Reactive Protein NT-Pro-B Natriuret Pep Total Protein Albumin Triglycerides Arterial Blood Glucose Ur Specific [place] Coronavirus (PCR) 04/06/21 04/07/21 04/07/21 17:57 00:30 00:32 WBC RBC Hgb Hct MCV MCHC RDW Plt Count Lymph % (Auto) [place] % (Auto) Lymph # (Auto) [place] # (Auto) Seg Neutrophils % Seg Neuts % (Manual) Lymphocytes % (Manual) Monocytes % (Manual) Nucleated RBC % Seg Neutrophils # Seg Neutrophils # Man Lymphocytes # (Manual) Monocytes # (Manual) PT INR APTT D-Dimer Heparin Anti-Xa Level < 0.10 L ABG pH POC ABG pCO2 POC ABG pO2 ABG pO2 ABG HCO3 ABG O2 Saturation ABG Base Excess ABG Hemoglobin ABG Oxyhemoglobin ABG Sodium ABG Potassium ABG Glucose Oxyhemoglobin Sodium Potassium Chloride Carbon Dioxide BUN Creatinine Glucose POC Glucose 151 H 149 H Lactic Acid Calcium Phosphorus Magnesium Ferritin Lactate Dehydrogenase C-Reactive Protein NT-Pro-B Natriuret Pep Total Protein Albumin Triglycerides Arterial Blood Glucose Ur Specific [place] Coronavirus (PCR) 04/07/21 04/07/21 04/07/21 05:34 06:08 06:08 WBC RBC 3.20 L Hgb 9.6 L Hct 29.8 L MCV MCHC RDW 16.0 H Plt Count 455 H Lymph % (Auto) [place] % (Auto) Lymph # (Auto) [place] # (Auto) Seg Neutrophils % Seg Neuts % (Manual) Lymphocytes % (Manual) Monocytes % (Manual) Nucleated RBC % Seg Neutrophils # Seg Neutrophils # Man Lymphocytes # (Manual) Monocytes # (Manual) PT INR APTT D-Dimer Heparin Anti-Xa Level ABG pH POC ABG pCO2 POC ABG pO2 ABG pO2 ABG HCO3 ABG O2 Saturation ABG Base Excess ABG Hemoglobin ABG Oxyhemoglobin ABG Sodium ABG Potassium ABG Glucose Oxyhemoglobin Sodium Potassium Chloride Carbon Dioxide 35 H BUN Creatinine 0.5 L Glucose 216 H POC Glucose 182 H Lactic Acid Calcium Phosphorus Magnesium Ferritin Lactate Dehydrogenase C-Reactive Protein NT-Pro-B Natriuret Pep Total Protein Albumin Triglycerides Arterial Blood Glucose Ur Specific [place] Coronavirus (PCR) 04/07/21 04/07/21 04/07/21 07:55 11:57 17:12 WBC RBC Hgb Hct MCV MCHC RDW Plt Count Lymph % (Auto) [place] % (Auto) Lymph # (Auto) [place] # (Auto) Seg Neutrophils % Seg Neuts % (Manual) Lymphocytes % (Manual) Monocytes % (Manual) Nucleated RBC % Seg Neutrophils # Seg Neutrophils # Man Lymphocytes # (Manual) Monocytes # (Manual) PT INR APTT D-Dimer Heparin Anti-Xa Level < 0.10 L ABG pH POC ABG pCO2 POC ABG pO2 ABG pO2 ABG HCO3 ABG O2 Saturation ABG Base Excess ABG Hemoglobin ABG Oxyhemoglobin ABG Sodium ABG Potassium ABG Glucose Oxyhemoglobin Sodium Potassium Chloride Carbon Dioxide BUN Creatinine Glucose POC Glucose 182 H 165 H Lactic Acid Calcium Phosphorus Magnesium Ferritin Lactate Dehydrogenase C-Reactive Protein NT-Pro-B Natriuret Pep Total Protein Albumin Triglycerides Arterial Blood Glucose Ur Specific [place] Coronavirus (PCR) 04/07/21 04/08/21 04/08/21 19:55 00:16 03:57 WBC RBC Hgb Hct MCV MCHC RDW Plt Count Lymph % (Auto) [place] % (Auto) Lymph # (Auto) [place] # (Auto) Seg Neutrophils % Seg Neuts % (Manual) Lymphocytes % (Manual) Monocytes % (Manual) Nucleated RBC % Seg Neutrophils # Seg Neutrophils # Man Lymphocytes # (Manual) Monocytes # (Manual) PT INR APTT D-Dimer Heparin Anti-Xa Level < 0.10 L ABG pH POC ABG pCO2 POC ABG pO2 ABG pO2 ABG HCO3 ABG O2 Saturation ABG Base Excess ABG Hemoglobin ABG Oxyhemoglobin ABG Sodium ABG Potassium ABG Glucose Oxyhemoglobin Sodium Potassium 5.8 H Chloride 95.5 L Carbon Dioxide 37 H BUN Creatinine 0.5 L Glucose 161 H POC Glucose 175 H Lactic Acid Calcium Phosphorus Magnesium Ferritin Lactate Dehydrogenase C-Reactive Protein NT-Pro-B Natriuret Pep Total Protein Albumin Triglycerides Arterial Blood Glucose Ur Specific [place] Coronavirus (PCR) 04/08/21 04/08/21 04/08/21 04:00 05:43 09:26 WBC RBC 3.25 L Hgb 9.9 L Hct 30.8 L MCV 95 H MCHC RDW 16.0 H Plt Count 487 H Lymph % (Auto) [place] % (Auto) Lymph # (Auto) [place] # (Auto) Seg Neutrophils % Seg Neuts % (Manual) Lymphocytes % (Manual) Monocytes % (Manual) Nucleated RBC % Seg Neutrophils # Seg Neutrophils # Man Lymphocytes # (Manual) Monocytes # (Manual) PT INR APTT D-Dimer Heparin Anti-Xa Level ABG pH POC ABG pCO2 POC ABG pO2 ABG pO2 ABG HCO3 ABG O2 Saturation ABG Base Excess ABG Hemoglobin ABG Oxyhemoglobin ABG Sodium ABG Potassium ABG Glucose Oxyhemoglobin Sodium Potassium Chloride Carbon Dioxide BUN Creatinine Glucose POC Glucose 162 H 164 H Lactic Acid Calcium Phosphorus Magnesium Ferritin Lactate Dehydrogenase C-Reactive Protein NT-Pro-B Natriuret Pep Total Protein Albumin Triglycerides Arterial Blood Glucose Ur Specific [place] Coronavirus (PCR) 04/08/21 04/08/21 04/08/21 11:53 17:19 20:35 WBC RBC Hgb Hct MCV MCHC RDW Plt Count Lymph % (Auto) [place] % (Auto) Lymph # (Auto) [place] # (Auto) Seg Neutrophils % Seg Neuts % (Manual) Lymphocytes % (Manual) Monocytes % (Manual) Nucleated RBC % Seg Neutrophils # Seg Neutrophils # Man Lymphocytes # (Manual) Monocytes # (Manual) PT INR APTT D-Dimer Heparin Anti-Xa Level ABG pH POC ABG pCO2 POC ABG pO2 ABG pO2 ABG HCO3 ABG O2 Saturation ABG Base Excess ABG Hemoglobin ABG Oxyhemoglobin ABG Sodium ABG Potassium ABG Glucose Oxyhemoglobin Sodium Potassium Chloride Carbon Dioxide BUN Creatinine Glucose POC Glucose 170 H 157 H 190 H Lactic Acid Calcium Phosphorus Magnesium Ferritin Lactate Dehydrogenase C-Reactive Protein NT-Pro-B Natriuret Pep Total Protein Albumin Triglycerides Arterial Blood Glucose Ur Specific [place] Coronavirus (PCR) 04/08/21 04/09/21 04/09/21 23:52 04:21 04:21 WBC 11.4 H RBC 2.97 L Hgb 8.9 L Hct 27.8 L MCV MCHC RDW 15.8 H Plt Count 485 H Lymph % (Auto) [place] % (Auto) Lymph # (Auto) [place] # (Auto) Seg Neutrophils % Seg Neuts % (Manual) Lymphocytes % (Manual) Monocytes % (Manual) Nucleated RBC % Seg Neutrophils # Seg Neutrophils # Man Lymphocytes # (Manual) Monocytes # (Manual) PT INR APTT D-Dimer Heparin Anti-Xa Level ABG pH POC ABG pCO2 POC ABG pO2 ABG pO2 ABG HCO3 ABG O2 Saturation ABG Base Excess ABG Hemoglobin ABG Oxyhemoglobin ABG Sodium ABG Potassium ABG Glucose Oxyhemoglobin Sodium Potassium Chloride 97.1 L Carbon Dioxide 40 H BUN 21 H Creatinine 0.5 L Glucose 149 H POC Glucose 170 H Lactic Acid Calcium Phosphorus 1.90 L D Magnesium Ferritin Lactate Dehydrogenase C-Reactive Protein NT-Pro-B Natriuret Pep Total Protein Albumin Triglycerides Arterial Blood Glucose Ur Specific [place] Coronavirus (PCR) 04/09/21 04/09/21 04/09/21 05:27 11:55 17:11 WBC RBC Hgb Hct MCV MCHC RDW Plt Count Lymph % (Auto) [place] % (Auto) Lymph # (Auto) [place] # (Auto) Seg Neutrophils % Seg Neuts % (Manual) Lymphocytes % (Manual) Monocytes % (Manual) Nucleated RBC % Seg Neutrophils # Seg Neutrophils # Man Lymphocytes # (Manual) Monocytes # (Manual) PT INR APTT D-Dimer Heparin Anti-Xa Level ABG pH POC ABG pCO2 POC ABG pO2 ABG pO2 ABG HCO3 ABG O2 Saturation ABG Base Excess ABG Hemoglobin ABG Oxyhemoglobin ABG Sodium ABG Potassium ABG Glucose Oxyhemoglobin Sodium Potassium Chloride Carbon Dioxide BUN Creatinine Glucose POC Glucose 144 H 190 H 163 H Lactic Acid Calcium Phosphorus Magnesium Ferritin Lactate Dehydrogenase C-Reactive Protein NT-Pro-B Natriuret Pep Total Protein Albumin Triglycerides Arterial Blood Glucose Ur Specific [place] Coronavirus (PCR) 04/09/21 04/09/21 04/09/21 20:10 21:12 23:33 WBC RBC Hgb Hct MCV MCHC RDW Plt Count Lymph % (Auto) [place] % (Auto) Lymph # (Auto) [place] # (Auto) Seg Neutrophils % Seg Neuts % (Manual) Lymphocytes % (Manual) Monocytes % (Manual) Nucleated RBC % Seg Neutrophils # Seg Neutrophils # Man Lymphocytes # (Manual) Monocytes # (Manual) PT INR APTT D-Dimer Heparin Anti-Xa Level ABG pH POC ABG pCO2 POC ABG pO2 ABG pO2 68.1 L ABG HCO3 41.3 H ABG O2 Saturation ABG Base Excess 14.6 H ABG Hemoglobin 10.2 L ABG Oxyhemoglobin ABG Sodium ABG Potassium ABG Glucose Oxyhemoglobin 94.7 L Sodium Potassium Chloride Carbon Dioxide BUN Creatinine Glucose POC Glucose 163 H 164 H Lactic Acid Calcium Phosphorus Magnesium Ferritin Lactate Dehydrogenase C-Reactive Protein NT-Pro-B Natriuret Pep Total Protein Albumin Triglycerides Arterial Blood Glucose Ur Specific [place] Coronavirus (PCR) 04/10/21 04/10/21 04/10/21 05:26 11:41 13:00 WBC RBC 3.09 L Hgb 9.3 L Hct 28.3 L MCV MCHC RDW 15.8 H Plt Count 480 H Lymph % (Auto) [place] % (Auto) Lymph # (Auto) [place] # (Auto) Seg Neutrophils % Seg Neuts % (Manual) Lymphocytes % (Manual) Monocytes % (Manual) Nucleated RBC % Seg Neutrophils # Seg Neutrophils # Man Lymphocytes # (Manual) Monocytes # (Manual) PT INR APTT D-Dimer Heparin Anti-Xa Level ABG pH POC ABG pCO2 POC ABG pO2 ABG pO2 ABG HCO3 ABG O2 Saturation ABG Base Excess ABG Hemoglobin ABG Oxyhemoglobin ABG Sodium ABG Potassium ABG Glucose Oxyhemoglobin Sodium Potassium Chloride Carbon Dioxide BUN Creatinine Glucose POC Glucose 172 H 150 H Lactic Acid Calcium Phosphorus Magnesium Ferritin Lactate Dehydrogenase C-Reactive Protein NT-Pro-B Natriuret Pep Total Protein Albumin Triglycerides Arterial Blood Glucose Ur Specific [place] Coronavirus (PCR) 04/10/21 04/10/21 04/10/21 13:00 17:46 21:37 WBC RBC Hgb Hct MCV MCHC RDW Plt Count Lymph % (Auto) [place] % (Auto) Lymph # (Auto) [place] # (Auto) Seg Neutrophils % Seg Neuts % (Manual) Lymphocytes % (Manual) Monocytes % (Manual) Nucleated RBC % Seg Neutrophils # Seg Neutrophils # Man Lymphocytes # (Manual) Monocytes # (Manual) PT INR APTT D-Dimer Heparin Anti-Xa Level ABG pH POC ABG pCO2 POC ABG pO2 ABG pO2 ABG HCO3 ABG O2 Saturation ABG Base Excess ABG Hemoglobin ABG Oxyhemoglobin ABG Sodium ABG Potassium ABG Glucose Oxyhemoglobin Sodium Potassium Chloride 96.4 L Carbon Dioxide 34 H BUN Creatinine 0.5 L Glucose 165 H POC Glucose 165 H 166 H Lactic Acid Calcium Phosphorus Magnesium Ferritin Lactate Dehydrogenase C-Reactive Protein NT-Pro-B Natriuret Pep Total Protein Albumin Triglycerides Arterial Blood Glucose Ur Specific [place] Coronavirus (PCR) 04/10/21 04/11/21 04/11/21 23:56 04:30 05:39 WBC 11.5 H RBC 3.02 L Hgb 8.9 L Hct 27.8 L MCV MCHC RDW 16.0 H Plt Count 505 H Lymph % (Auto) [place] % (Auto) Lymph # (Auto) [place] # (Auto) Seg Neutrophils % Seg Neuts % (Manual) Lymphocytes % (Manual) Monocytes % (Manual) Nucleated RBC % Seg Neutrophils # Seg Neutrophils # Man Lymphocytes # (Manual) Monocytes # (Manual) PT INR APTT D-Dimer Heparin Anti-Xa Level ABG pH POC ABG pCO2 POC ABG pO2 ABG pO2 ABG HCO3 ABG O2 Saturation ABG Base Excess ABG Hemoglobin ABG Oxyhemoglobin ABG Sodium ABG Potassium ABG Glucose Oxyhemoglobin Sodium Potassium Chloride Carbon Dioxide BUN Creatinine Glucose POC Glucose 156 H 164 H Lactic Acid Calcium Phosphorus Magnesium Ferritin Lactate Dehydrogenase C-Reactive Protein NT-Pro-B Natriuret Pep Total Protein Albumin Triglycerides Arterial Blood Glucose Ur Specific [place] Coronavirus (PCR) 04/11/21 04/11/21 04/11/21 06:47 06:47 11:29 WBC RBC 3.35 L Hgb 9.8 L Hct 30.7 L MCV MCHC RDW 16.3 H Plt Count 520 H Lymph % (Auto) [place] % (Auto) Lymph # (Auto) [place] # (Auto) Seg Neutrophils % Seg Neuts % (Manual) 76.0 H Lymphocytes % (Manual) 10.0 L Monocytes % (Manual) Nucleated RBC % Seg Neutrophils # Seg Neutrophils # Man 8.3 H Lymphocytes # (Manual) 1.1 L Monocytes # (Manual) PT INR APTT D-Dimer Heparin Anti-Xa Level ABG pH POC ABG pCO2 POC ABG pO2 ABG pO2 ABG HCO3 ABG O2 Saturation ABG Base Excess ABG Hemoglobin ABG Oxyhemoglobin ABG Sodium ABG Potassium ABG Glucose Oxyhemoglobin Sodium Potassium Chloride 97.7 L Carbon Dioxide 34 H BUN Creatinine 0.4 L Glucose 178 H POC Glucose 170 H Lactic Acid Calcium Phosphorus Magnesium Ferritin Lactate Dehydrogenase C-Reactive Protein NT-Pro-B Natriuret Pep Total Protein Albumin Triglycerides Arterial Blood Glucose Ur Specific [place] Coronavirus (PCR) Allied health notes reviewed: RT
[2021-04-11 19:04] LABS: INR 0.92 (0.87-1.13)
[2021-04-11 19:08] LABS: Partial Thromboplastin Time 61.1 Sec. (24.2-36.6)
[2021-04-11 19:29] LABS: Hematocrit 29.8 % (35.5-45.6); Hemoglobin 9.5 gm/dl (11.8-15.2); Mean Corpuscular HGB Conc 32 % (32-34); Mean Corpuscular Volume 93 fl (84-94); Platelet Count 402 K/mm3 (140-440); Red Blood Count 3.22 M/mm3 (3.65-5.03)
[2021-04-11] MEDS: INSULIN GLARGINE 100 UNITS/ML SUB-Q SCH (21:01)
[2021-04-11] MEDS: APIXABAN 5 MG TAB PO SCH (21:03)
[2021-04-12] MEDS: fentaNYL DRIP Premix 2,000 MCG/100 ML BAG IV SCH ×3 (00:05→16:57)
[2021-04-12] MEDS: INSULIN LISPRO 100 UNIT/ML SUB-Q SCH ×3 (00:41→11:42)
[2021-04-12] MEDS: chlordiazePOXIDE 25 MG CAP PO SCH ×4 (00:46→20:29)
--- NOTE | 2021-04-12 02:39 | XRay Report ---
CHEST 1 VIEW INDICATION / CLINICAL INFORMATION: Tachypnea. COMPARISON: Chest x-ray 04/08/2019 FINDINGS: SUPPORT DEVICES: Tracheostomy tube stable. HEART / MEDIASTINUM: Stable borderline to mild cardiomegaly. LUNGS / PLEURA: Bilateral lung opacities without significant interval change. No pneumothorax. ADDITIONAL FINDINGS: No significant additional findings. IMPRESSION: 1. No significant change. Signer Name: Diaz Bella II, MD Signed: 04/12/2021 2:34 AM Workstation Name: [id number]
[2021-04-12] MEDS: hydrALAZINE 25 MG TAB PO SCH ×3 (05:41→21:58)
[2021-04-12 06:15] LABS: Hematocrit 26.9 % (35.5-45.6); Hemoglobin 8.6 gm/dl (11.8-15.2); Mean Corpuscular HGB Conc 32 % (32-34); Mean Corpuscular Volume 92 fl (84-94); Platelet Count 460 K/mm3 (140-440); Red Blood Count 2.92 M/mm3 (3.65-5.03); Red Cell Distribution Width 16.3 % (13.2-15.2)
[2021-04-12 06:24] LABS: Blood Urea Nitrogen 17 mg/dL (9-20); Calcium 8.7 mg/dL (8.4-10.2); Hemolysis Index 26
[2021-04-12 06:26] LABS: BUN/Creatinine Ratio 57
[2021-04-12] MEDS: BUDESONIDE 0.5 MG/2 ML NEBU IH SCH ×2 (08:01→20:14)
[2021-04-12] MEDS: ARFORMOTEROL 15 MCG/2 ML NEBU IH SCH ×2 (08:01→20:14)
[2021-04-12] MEDS: oxyCODONE 5 MG TAB PO SCH ×3 (08:06→21:59)
[2021-04-12] MEDS ORDERED: FUROSEMIDE 20 MG/2 ML INJ IV SCH ×3 (09:00→12:00)
[2021-04-12 10:13] LABS: ABG Base Excess 13.7 mmol/L (-2.0-3.0); ABG Methemoglobin 0.6 % (0.0-1.5); ABG Oxygen Saturation 96.3 % (95.0-99.0); ABG PCO2 73.4 mm Hg; ABG PH 7.365 pH Units (7.350-7.450); ABG PO2 70.8 mm Hg (80.0-90.0)
[2021-04-12] MEDS: QUEtiapine 25 MG TAB PO SCH ×2 (10:31→21:59)
[2021-04-12] MEDS: METOPROLOL TARTRATE 25 MG TAB PO SCH ×2 (10:31→22:00)
[2021-04-12] MEDS: fentaNYL 75 MCG/HR PATCH 72HR TD SCH (10:31)
[2021-04-12] MEDS: QUEtiapine 200 MG TAB PO SCH ×2 (10:31→21:58)
[2021-04-12] MEDS: DOXAZOSIN 1 MG TAB PO SCH ×3 (10:32→22:01)
[2021-04-12] MEDS: APIXABAN 5 MG TAB PO SCH ×2 (10:32→22:00)
[2021-04-12] MEDS: FAMOTIDINE 20 MG TAB FEEDTUBE SCH ×2 (10:32→21:58)
[2021-04-12] MEDS: POLYETHYLENE GLYCOL 3350 17 GM POWDER FEEDTUBE SCH (10:33)
[2021-04-12] MEDS: SENNOSIDES/DOCUSATE SODIUM 8.6/50 MG TAB FEEDTUBE SCH ×2 (10:33→22:01)
[2021-04-12] MEDS: amLODIPine 5 MG TAB PO SCH (10:33)
--- NOTE | 2021-04-12 11:38 | Progress Note ---
<DEBBY ELLISON - Last Filed: 04/12/21 17:54> Assessment and Plan Assessment and plan: This is a 61-year-old male with past medical history of HTN and DM admitted for sepsis and acute hypoxic respiratory failure 2/2 COVID pneumonia requiring ventilatory support. Hospital Course to Date: 03/09: The patient was seen and evaluated today, and he was found to be hemodynamically stable. The patient is currently on BiPAP for possible COVID-19 pneumonia. He was started on Lovenox 1mg/kg for DVT ppx in the setting of d- dimer > 10,000. Infectious Disease was consulted. The patient is pending a TTE. 03/10: No acute events overnight, patient was intubated in the afternoon transferred to ICU 03/11: Patient started on Lantus, free water flushes increased, propofol drip resumed and oral antihypertensive added. 03/12: lantus increased, k at 5, will monitor. I updated his family and his stated that he is not vaccinated. He does have HTN and she will call the RN to update home medications. She did say he takes bystolic and amlopine. She inquired about ventilator and lab work. She had no further questions. 03/13: KVNG overnight. Patient remains hyperglycemic, basal insulin adjusted and increased to Q12hrs. Patient is overall net positive since admit X1 dose of IV lasix, repeat BMP this afternoon. 03/14: Failed SAT this am due to increase agitation, tachycardia and hypertension. Remains on propofol and fentanyl gtt. Hyperkalemia treated with PO kayaxalate. Patient responded to IV lasix yesterday additional dose again today for a net negative balance. Repeat BMP this afternoon. Insulin adjusted for hyperglycemia. 03/15: Remains encephalopathic, not following commansd. Orders placed for CT head/Brain and Neuro consulted. Rectal bleeding subsided, most likely due to hemorrhoids. H&H is stable will continue to monitor. Kayaxexalate for high K, repeat labs 4 to 6hrs post treatment. 03/16: Still agiated this am, CT head with no acute Abn. CXR and ABG noted- evolving pna and worsening hypoxia, now with low grade fevers. Sputum culture ordered, IV Abx added, ID on cosult. 03/17: This am ABG noted, hypoxia improved. Continue to wean FiO2 as tolerated. Still with low grade fevers, on IV Abx per ID. Still with periods of confusion despite sedation, seroquel increased. F/u CXR in the am 03/18: still very agitated especially when off sedation, with hypertension and tachycardia. Continue sedation for RASS -2, PRN antihypertensive for SPB greater than 160. This febrile this am, continue current IV abx per ID 03/19: Patient afebrile overnight, continue IV Abx per ID. ABG also improved this am, continue to wean FIO2 as tolerated. PRN antihypertensive for hypertension. 03/20: Hyperkalemia treated with Kayexalate, Good discontinued, vancomycin and cefepime stopped started Bactrim by ID. Steroid taper started. 03/21: BB started for hypertension, Seroquel increased for agitation and Librium started no acute events reported overnight. [facility] made vent changes 03/22: Adjustment to anxiolytics, respiratory rate on ventilator per [facility]. Patient noted to have bleeding hemorrhoids with clot, requested RN to remove bowel management system and will order Preparation H. 03/23: Given no confirmed DVT or PE (only superficial thrombus noted on Dopplers) therapeutic Lovenox changed to prophylactic Lovenox. Started on doxazosin to help with retention. Consulted surgery for tracheostomy and propofol discontinued. 03/24: Surgery consult completed, patient changed to prophylaxis anticoagulation, started on doxazosin yesterday with plans to remove Good catheter in 48 hours. Patient with slight hypokalemia today and given Kayexalate. No acute events reported overnight. 03/25: No acute events reported overnight. Patient remains on fentanyl drip and on CPAP trial this morning. 03/26: no acute events reported overnight. placed on CPAP this AM, remains on fent/librium. scheduled for trach/peg this week. 03/27: Hypoglycemic this am, will decreased lantus to Qhs. Plan for possible Trach and Peg by Gen Surg this am. Case management to arrange possible LTAC placement 03/28: KVNG overnight. Tolerating PST this am. Plan for trach and PEG tomorrow by Gen. Surgery, NPO after midnight. 03/29: No significant changes overnight. Plan for trach and Peg today. Case management to arrange possible LTAC placement 03/30. S/p Trach and PEG, no complications noted. High residual yesterday despite NPO status, reglan added X2 days. Per RN no residual this am, patient is tolerating TF. Continue to advance TF as tolerated. Norvasc added for hypertension. Pitting edema also appreciated, some diuretic might be beneficial, will d/w CCM. Continue daily PST as tolerated. 03/31: Patient remains on the vent still on fentanyl gtt with periods of agitation. PRN analgesia added, plan to start weaning off fentanyl gtt. Febrile this am, completed IV abx course. Will panculture for now, ID is also following. 04/01: Still febrile overnight, cultures result pending, continue IV ABx per ID. Failed PST this am. Continue daily PST and vent wean per [facility]. Case management to arrange possible placement. 04/02: KVGN overnight. Fevers improved overnight, continue to follow cultures data, IV ABx per ID. Continue daily PST and wean vent as per [facility].\ 04/03: Given low procalcitonin, unchanged CXR and cultures with no growth cefepime was discontinued by ID. LTAC evaluation ongoing. No acute events reported overnight. 04/04: IV Lasix stopped today, Seroquel taper started, fentanyl drip on hold and steroids stopped. Pressure support trial again today. 04/05: Patient had to be restarted on fentanyl drip therefore Seroquel was increased back to 250 twice daily and he was started on scheduled narcotics and efforts to wean fentanyl drip. Doxazosin was increased to twice daily as patient still had retention issues on doxazosin once a day. Patient was denied LTAC placement. CPAP trial today. 04/06: Right upper extremity ultrasound obtained due to edema which showed DVT. Patient started on heparin drip. Overnight patient had hypoxia, tachypnea, tachycardia, hypotension and FiO2 was increased to 100%. RT titrating as tolerated. Plan was to start T-piece trials today. Patient has been denied LTAC placement. 04/07: BLE dopplar, continue lasix per [facility], CXR in AM. Increase in fio2 overnight d/t desaturation. Wean FiO2 as tolerated. 04/08: Patient remains on 65% FiO2, s/p Lasix for 3 doses, hyperkalemia noted today and medically treated. [facility] plans to consult heme/onc once FiO2 decreased. Remains on heparin gtt 04/09: No acute events reported overnight, possible heme-onc consult on Saturday or Saturday regarding upper extremity DVT, wean FiO2 as tolerated. Repeat CT head on Monday 04/10: Patient mentation is unchanged, repeat CT head today. Remains on heparin gtt per protocol. Continue daily PST as tolerated. 04/11: Increased work of breathing and high RR overnight, vent FiO2 increased to 55%. Resolved this am, patient is tolerating PST, no acute distress noted. Wean Fio2 as tolerated for SPO2 above 92%, Follow up CXR and ABG in the am. Antihypertensive regimen adjusted for better BP control. 04/12: Patient with coarse lungs and increased secretion today. This am CXR noted with worsen infiltrate, 40 of Lasix given, repeat CXR in the am. Patient remains afebrile, complete IV Abx course, VSS. Transitioned to PO Eliquis overnight, continue to keep patient net negative for better lung compliance. Continue daily PST as tolerated. Assessment and Plan #Acute Hypoxic Respiratory Failure #COVID Pneumonia - Intubated on 03/10 due to worsen hypoxia on BIPAP - /2 s/p Tracheostomy - Vent setting:PRVC-55%,8,12,450 - This am ABG this am - CCM consulted, appreciate recommendations - Continue Nebs per CCM - keep patient net negative for better lung compliance - VAP bundle addressed - Aspiration precaution HOB above 30 - Daily SBT and SAT trials as tolerated - PRN ABG and CXR - Continue SPO2 monitoring for SPO2 goal above 92% #Sepsis #COVID Pneumonia #Leukocytosis #Lactic Acidosis- Resolved - COVID PCR positive - UA neg, Blood cultures and Sputum culture NGTD - repeat Bculture NGTD, 03/17 Sputum Cult + Stenotrophomonas - Infectious disease consulted, appreciate recommendation - S/p Actemra 03/10/2021 - Completed X5days course of IV remdesivir - IV abx per ID - Monitor WBC and temperature curve - Trend CBC -04/07 Per ID: if persistently febrile and WBC rises, reculture and then restart abx: IV Cefepime + Vancomycin #Neuro:Acute Encephalopathy - Intubated and sedated on fentanyl RASS -2 - CT head/brain no acute Abn. - Repeat CT head pending - On Seroquel and Librium - Avoid benzodiazepine to reduce the possibility of delirium - Prn analgesia for CPOT greater than 3 - Maintenance of sleep-wake cycle - Neurology on consult #CV: Hypertension - 03/09 Echocardiogram shows a mildly dilated ascending aorta, normal LV systolic function, mild concentric LVH, LVEF 60 to 65% - Continue current antihypertensive regimen - Norvasc added for better control - PRN Labetalol for SBP above 160 - Continue Blood pressure monitoring per protocol #Urinary retention - Good reinserted for retention - Strict intake and output - Avoid nephrotoxic medications; Renally dose medications - Monitor and replace electrolytes as needed - Trend BMP #Acute right upper extremity DVT - Bilateral lower extremity ultrasounds negative for DVT, superficial thrombus in left gastrocnemius vein - CTA chest shows no gross pulm embolism - bilateral upper extremity ultrasound shows DVT in right upper extremity - Transitioned to PO Eliquis - SCDs to BLE while in bed - Transfuse hemoglobin less than 7 - Monitor for signs of bleeding #Endo:Type 2 DM - Continue high dose SSI Q6hrs - Lantus qHs - Avoid Hypoglycemia The high probability of a clinically significant, sudden or life threatening deterioration of the [Respiratory] system(s) required my full and direct attention, intervention and personal management. The aggregate critical care time was [60] minutes. This time is in addition to time spent performing reported procedures but includes the following: [x] Data Review and interpretation [x] Patient assessment and monitoring of vital signs [x] Documentation [x] Medication orders and management Disposition Plan: ICU Total Time Spent with Patient (Minutes): 60 History Interval history: Patient seen and examined at the bedside. Remains on the vent and on fentanyl gtt. Patient with coarse lungs and increased secretion this am. KVNG overnight Hospitalist Physical - Constitutional Vitals: Temp Pulse Resp BP Pulse Ox 99.6 F 108 H 29 H 109/52 98 04/12/21 08:00 04/12/21 11:00 04/12/21 11:00 04/12/21 11:00 04/12/21 11:00 General appearance: Present: no acute distress, well-nourished, obese, other (On the vent, on sedation) - EENT Eyes: Present: PERRL - Respiratory Respiratory effort: accessory muscle use Respiratory: bilateral: rales (coarse) - Cardiovascular Rhythm: regular Heart Sounds: Present: S1 & S2 - Extremities Extremities: no ischemia, pulses intact, pulses symmetrical Extremity abnormal: edema - Peripheral Assessment Generalized Edema Type: Pitting Edema Degree: 2+ Capillary Refill: < 3 seconds Skin Temperature: Warm Peripheral Pulses: within normal limits - Abdominal General gastrointestinal: soft, non-distended, normal bowel sounds - Integumentary Integumentary: Present: warm, dry - Psychiatric Psychiatric: other (Unresponsive) - Neurologic Neurologic: other (Unresponsive) - Allied Health Allied health notes reviewed: nursing, case management Results - Labs CBC & Chem 7: 04/12/21 05:11 04/12/21 05:11 Labs: Laboratory Last Values WBC 10.2 K/mm3 (4.5-11.0) 04/12/21 05:11 RBC 2.92 M/mm3 (3.65-5.03) L 04/12/21 05:11 Hgb 8.6 gm/dl (11.8-15.2) L 04/12/21 05:11 Hct 26.9 % (35.5-45.6) L 04/12/21 05:11 MCV 92 fl (84-94) 04/12/21 05:11 MCH 30 pg (28-32) 04/12/21 05:11 MCHC 32 % (32-34) 04/12/21 05:11 RDW 16.3 % (13.2-15.2) H 04/12/21 05:11 Plt Count 460 K/mm3 (140-440) H 04/12/21 05:11 Lymph % (Auto) 7.6 % (13.4-35.0) L 03/31/21 13:30 [place] % (Auto) 9.5 % (0.0-7.3) H 03/31/21 13:30 Eos % (Auto) 4.1 % (0.0-4.3) 03/31/21 13:30 Baso % (Auto) 0.5 % (0.0-1.8) 03/31/21 13:30 Lymph # (Auto) 0.6 K/mm3 (1.2-5.4) L 03/31/21 13:30 [place] # (Auto) 0.7 K/mm3 (0.0-0.8) 03/31/21 13:30 Eos # (Auto) 0.3 K/mm3 (0.0-0.4) 03/31/21 13:30 Baso # (Auto) 0.0 K/mm3 (0.0-0.1) 03/31/21 13:30 Add Manual Diff Complete 04/11/21 06:47 Total Counted 100 04/11/21 06:47 Seg Neutrophils % 78.3 % (40.0-70.0) H 03/31/21 13:30 Seg Neuts % (Manual) 76.0 % (40.0-70.0) H 04/11/21 06:47 Band Neutrophils % 2.0 % 04/11/21 06:47 Lymphocytes % (Manual) 10.0 % (13.4-35.0) L 04/11/21 06:47 Reactive Lymphs % (Man) 0 % 04/11/21 06:47 Monocytes % (Manual) 7.0 % (0.0-7.3) 04/11/21 06:47 Eosinophils % (Manual) 4.0 % (0.0-4.3) 04/11/21 06:47 Basophils % (Manual) 0 % (0.0-1.8) 04/11/21 06:47 Metamyelocytes % 1.0 % 04/11/21 06:47 Myelocytes % 0 % 04/11/21 06:47 Promyelocytes % 0 % 04/11/21 06:47 Blast Cells % 0 % 04/11/21 06:47 Nucleated RBC % Not Reportable 04/11/21 06:47 Seg Neutrophils # 5.8 K/mm3 (1.8-7.7) 03/31/21 13:30 Seg Neutrophils # Man 8.3 K/mm3 (1.8-7.7) H 04/11/21 06:47 Band Neutrophils # 0.2 K/mm3 04/11/21 06:47 Lymphocytes # (Manual) 1.1 K/mm3 (1.2-5.4) L 04/11/21 06:47 Abs React Lymphs (Man) 0.0 K/mm3 04/11/21 06:47 Monocytes # (Manual) 0.8 K/mm3 (0.0-0.8) 04/11/21 06:47 Eosinophils # (Manual) 0.4 K/mm3 (0.0-0.4) 04/11/21 06:47 Basophils # (Manual) 0.0 K/mm3 (0.0-0.1) 04/11/21 06:47 Metamyelocytes # 0.1 K/mm3 04/11/21 06:47 Myelocytes # 0.0 K/mm3 04/11/21 06:47 Promyelocytes # 0.0 K/mm3 04/11/21 06:47 Blast Cells # 0.0 K/mm3 04/11/21 06:47 WBC Morphology Not Reportable 04/11/21 06:47 Hypersegmented Neuts Not Reportable 04/11/21 06:47 Hyposegmented Neuts Not Reportable 04/11/21 06:47 Hypogranular Neuts Not Reportable 04/11/21 06:47 Smudge Cells Not Reportable 04/11/21 06:47 Toxic Granulation 1+ 04/11/21 06:47 Toxic Vacuolation Not Reportable 04/11/21 06:47 Dohle Bodies Not Reportable 04/11/21 06:47 Pelger-Huet Anomaly Not Reportable 04/11/21 06:47 Mely Rods Not Reportable 04/11/21 06:47 Platelet Estimate Consistent w auto 04/11/21 06:47 Clumped Platelets Not Reportable 04/11/21 06:47 Plt Clumps, EDTA Not Reportable 04/11/21 06:47 Large Platelets Not Reportable 04/11/21 06:47 Giant Platelets Not Reportable 04/11/21 06:47 Platelet Satelliting Not Reportable 04/11/21 06:47 Plt Morphology Comment Not Reportable 04/11/21 06:47 RBC Morphology Not Reportable 04/11/21 06:47 Dimorphic RBCs Not Reportable 04/11/21 06:47 Polychromasia Not Reportable 04/11/21 06:47 Hypochromasia Not Reportable 04/11/21 06:47 Poikilocytosis Not Reportable 04/11/21 06:47 Anisocytosis 1+ 04/11/21 06:47 Microcytosis Not Reportable 04/11/21 06:47 Macrocytosis Not Reportable 04/11/21 06:47 Spherocytes Not Reportable 04/11/21 06:47 Pappenheimer Bodies Not Reportable 04/11/21 06:47 Sickle Cells Not Reportable 04/11/21 06:47 Target Cells Not Reportable 04/11/21 06:47 Tear Drop Cells Not Reportable 04/11/21 06:47 Ovalocytes Not Reportable 04/11/21 06:47 Helmet Cells Not Reportable 04/11/21 06:47 [place] Bodies Not Reportable 04/11/21 06:47 [place] Rings Not Reportable 04/11/21 06:47 Sully Cells Not Reportable 04/11/21 06:47 Bite Cells Not Reportable 04/11/21 06:47 Crenated Cell Not Reportable 04/11/21 06:47 Elliptocytes Not Reportable 04/11/21 06:47 Acanthocytes (Spur) Not Reportable 04/11/21 06:47 Rouleaux Not Reportable 04/11/21 06:47 Hemoglobin C Crystals Not Reportable 04/11/21 06:47 Schistocytes Not Reportable 04/11/21 06:47 Malaria parasites Not Reportable 04/11/21 06:47 [place] Bodies Not Reportable 04/11/21 06:47 Hem Pathologist Commnt No 04/11/21 06:47 PT 13.4 Sec. (12.2-14.9) 04/11/21 18:17 INR 0.92 (0.87-1.13) 04/11/21 18:17 APTT 61.1 Sec. (24.2-36.6) H* 04/11/21 18:17 D-Dimer 1359.12 ng/mlDDU (0-234) H 03/17/21 04:40 Heparin Anti-Xa Level 1.03 U.I./ml (0.3-0.7) H 04/12/21 05:11 ABG pH 7.365 pH Units (7.350-7.450) 04/12/21 09:45 POC ABG pCO2 57.4 mmHg (32.0-48.0) H 04/06/21 04:49 ABG pCO2 73.4 mm Hg 04/12/21 09:45 POC ABG pO2 55.1 mmHg (83-108) L 04/06/21 04:49 ABG pO2 70.8 mm Hg (80.0-90.0) L 04/12/21 09:45 POC ABG HCO3 36.2 04/06/21 04:49 ABG HCO3 41.0 mmol/L (20.0-26.0) H 04/12/21 09:45 ABG O2 Saturation 96.3 % (95.0-99.0) 04/12/21 09:45 ABG O2 Content 11.0 (0.0-44) 04/12/21 09:45 POC ABG Base Excess 10.0 04/06/21 04:49 ABG Base Excess 13.7 mmol/L (-2.0-3.0) H 04/12/21 09:45 ABG Hemoglobin 8.3 gm/dl (14.0-18.0) L 04/12/21 09:45 ABG Oxyhemoglobin 87.5 (94-98) L 04/06/21 04:49 ABG Carboxyhemoglobin 1.8 % (0.0-5.0) 04/12/21 09:45 ABG Methemoglobin 0.6 % (0.0-1.5) 04/12/21 09:45 ABG Sodium 134.2 mmol/L (136.0-145.0) L 03/12/21 21:54 ABG Potassium 4.9 mmol/L (3.40-4.50) H 03/12/21 21:54 ABG Chloride 99.0 mmol/L (98-107) 03/12/21 21:54 ABG Glucose 306 mg/dL (65-95) H 03/12/21 21:54 Oxyhemoglobin 94.0 % (95.0-99.0) L 04/12/21 09:45 Carboxyhemoglobin 0.8 (0.5-1.5) 04/06/21 04:49 FiO2 55 % 04/12/21 09:45 FiO2 % 40.0 04/06/21 04:49 Sodium 139 mmol/L (137-145) 04/12/21 05:11 Potassium 4.6 mmol/L (3.6-5.0) 04/12/21 05:11 Chloride 98.4 mmol/L (98-107) 04/12/21 05:11 Carbon Dioxide 34 mmol/L (22-30) H 04/12/21 05:11 Anion Gap 11 mmol/L 04/12/21 05:11 BUN 17 mg/dL (9-20) 04/12/21 05:11 Creatinine 0.3 mg/dL (0.8-1.3) L 04/12/21 05:11 Estimated GFR > 60 ml/min 04/12/21 05:11 BUN/Creatinine Ratio 57 % 04/12/21 05:11 Glucose 153 mg/dL (75-100) H 04/12/21 05:11 POC Glucose 174 mg/dL (70-105) H 04/12/21 11:08 Lactic Acid 1.90 mmol/L (0.7-2.0) 03/08/21 23:51 Calcium 8.7 mg/dL (8.4-10.2) 04/12/21 05:11 Phosphorus 3.30 mg/dL (2.5-4.5) 04/12/21 05:11 Magnesium 2.10 mg/dL (1.7-2.3) 04/12/21 05:11 Ferritin 976.4 ng/mL (30.0-300.0) H 03/15/21 04:00 Total Bilirubin 0.20 mg/dL (0.1-1.2) 03/12/21 08:03 AST 10 units/L (5-40) 03/12/21 08:03 ALT 16 units/L (7-56) 03/12/21 08:03 Alkaline Phosphatase 77 units/L (35-129) 03/12/21 08:03 Lactate Dehydrogenase 630 units/L (91-180) H 03/15/21 06:06 C-Reactive Protein 0.40 mg/dL (0.00-1.30) 03/17/21 04:40 NT-Pro-B Natriuret Pep 1053 pg/mL (0-900) H 03/08/21 20:24 Total Protein 6.0 g/dL (6.3-8.2) L 03/12/21 08:03 Albumin 2.9 g/dL (3.9-5) L 03/12/21 08:03 Albumin/Globulin Ratio 0.9 % 03/12/21 08:03 Triglycerides 305 mg/dL (2-149) H 03/22/21 07:26 Procalcitonin 0.17 ng/mL (<0.15) 04/01/21 07:16 Arterial Blood Glucose 306 mg/dL (65-95) H 03/12/21 21:54 Arterial Blood Ionized Calcium 5.0 mg/dL (4.6-5.3) 03/12/21 21:54 Urine Color Yellow (Yellow) 03/09/21 04:10 Urine Turbidity Slightly-cloudy (Clear) 03/09/21 04:10 Urine pH 5.0 (5.0-7.0) 03/09/21 04:10 Ur Specific [place] 1.041 (1.003-1.030) H 03/09/21 04:10 Urine Protein 100 mg/dl mg/dL (Negative) 03/09/21 04:10 Urine Glucose (UA) Neg mg/dL (Negative) 03/09/21 04:10 Urine Ketones Neg mg/dL (Negative) 03/09/21 04:10 Urine Blood Mod (Negative) 03/09/21 04:10 Urine Nitrite Neg (Negative) 03/09/21 04:10 Urine Bilirubin Neg (Negative) 03/09/21 04:10 Urine Urobilinogen 2.0 mg/dL (<2.0) 03/09/21 04:10 Ur Leukocyte Esterase Neg (Negative) 03/09/21 04:10 Urine WBC (Auto) 4.0 /HPF (0.0-6.0) 03/09/21 04:10 Urine RBC (Auto) 1.0 /HPF (0.0-6.0) 03/09/21 04:10 Urine Bacteria (Auto) 1+ /HPF (Negative) 03/09/21 04:10 Urine Mucus Few /HPF 03/09/21 04:10 Coronavirus (PCR) Positive (Negative) A 03/09/21 08:00 Miscellaneous Test Flexitest 1 03/16/21 13:14 Good/IV: Voiding Method Indwelling Catheter Active Medications - Current Medications Current Medications: Generic Name Dose Route Start Last Admin Trade Name Freq PRN Reason Stop Dose Admin Acetaminophen 650 mg 03/09/21 01:26 04/07/21 21:40 Acetaminophen 325 Mg Tab PO 650 mg Q4H PRN Administration Pain MILD(1-3)/Fever >100.5/RAYO Albuterol 2.5 mg 03/09/21 01:26 03/18/21 21:06 Albuterol 2.5 Mg/3 Ml Nebu IH 2.5 mg Q4HRT PRN Administration Shortness Of Breath Amlodipine Besylate 10 mg 04/11/21 10:00 04/12/21 10:33 Amlodipine 5 Mg Tab PO 10 mg QDAY BLANCA Administration Apixaban 10 mg 04/11/21 22:00 04/12/21 10:32 Apixaban 5 Mg Tab PO 04/18/21 10:01 10 mg Q12HR BLANCA Administration Protocol Apixaban 5 mg 04/18/21 22:00 Apixaban 5 Mg Tab PO Q12HR [facility] Protocol Arformoterol Tartrate 15 mcg 03/11/21 20:00 04/12/21 08:01 Arformoterol 15 Mcg/2 Ml Nebu IH 15 mcg Q12HRT BLANCA Administration Bisacodyl 10 mg 03/26/21 13:43 03/26/21 13:51 Bisacodyl [address] 10 mg QDAY PRN Administration Constipation Budesonide 0.5 mg 04/06/21 20:00 04/12/21 08:01 Budesonide 0.5 Mg/2 Ml Nebu IH 0.5 mg Q12HRT BLANCA Administration Chlordiazepoxide HCl 75 mg 03/22/21 18:00 04/12/21 05:07 Chlordiazepoxide 25 Mg Cap PO Not Given Q6HR [facility] Dextrose 0 ml 03/20/21 10:52 Dextrose 10% *Hypoglycemia IV PRN PRN Hypoglycemia Doxazosin Mesylate 1 mg 04/05/21 22:00 04/12/21 10:32 Doxazosin 1 Mg Tab PO 1 mg BID BLANCA Administration Famotidine 20 mg 03/12/21 22:00 04/12/21 10:32 Famotidine 20 Mg Tab FEEDTUBE 20 mg BID BLANCA Administration Fentanyl 1 applic 03/31/21 15:00 04/12/21 10:31 Fentanyl 75 Mcg/Hr Patch 72hr TD 1 applic Q3D BLANCA Administration Fentanyl 50 mcg 04/04/21 17:00 04/08/21 18:11 Fentanyl 100 Mcg/2 Ml Inj IV 50 mcg Q10MIN PRN Administration ANALGESIA Furosemide 20 mg 04/12/21 09:00 04/12/21 09:05 Furosemide 20 Mg/2 Ml Inj IV 04/12/21 12:00 20 mg ONCE@0900 BLANCA Administration Furosemide 20 mg 04/12/21 12:00 Furosemide 20 Mg/2 Ml Inj IV 04/12/21 16:00 ONCE@1200 BLANCA Hydralazine HCl 50 mg 03/23/21 14:26 04/12/21 05:41 Hydralazine 25 Mg Tab PO Not Given Q8HR [facility] Fentanyl Citrate 2,000 mcg in 100 mls @ 6.1 mls/hr 04/04/21 17:00 04/12/21 09:08 Fentanyl Drip Premix IV 1 mcg/kg/hr TITR BLANCA 6.1 mls/hr Titration Protocol 1 MCG/KG/HR Insulin Glargine 18 units 04/07/21 22:00 04/11/21 21:01 Insulin Glargine 100 Units/Ml SUB-Q 18 units QHS BLANCA Administration Insulin Human Lispro 0 unit 03/11/21 18:00 04/12/21 06:25 Insulin Lispro 100 Unit/Ml SUB-Q 3 unit Q6HR BLANCA Administration Protocol Metoprolol Tartrate 12.5 mg 03/21/21 22:00 04/12/21 10:31 Metoprolol Tartrate 25 Mg Tab PO 12.5 mg BID BLANCA Administration Midazolam HCl 2 mg 03/15/21 08:49 04/10/21 17:13 Midazolam 2 Mg/2 Ml Inj IV 2 mg Q2H PRN Administration VENT SYNCHRONY Ondansetron HCl 4 mg 03/09/21 01:26 Ondansetron 4 Mg/2 Ml Inj IV Q8H PRN Nausea And Vomiting Oxycodone HCl 5 mg 04/05/21 14:00 04/12/21 08:06 Oxycodone 5 Mg Tab PO 5 mg TID BLANCA Administration Phenyleph/Shark Oil/Min Oil/Petrol 1 applic 03/22/21 17:35 04/06/21 04:04 Pe/Mo/Pet,Wh 10 Applic/[address] 1 applic Q6HR PRN Administration Hemorrhoids Polyethylene Glycol 17 gm 04/02/21 10:00 04/12/21 10:33 Polyethylene Glycol 3350 17 Gm Powder FEEDTUBE Not Given QDAY [facility] Quetiapine Fumarate 200 mg 04/04/21 22:00 04/12/21 10:31 Quetiapine 200 Mg Tab PO 200 mg BID BLANCA Administration Quetiapine Fumarate 50 mg 04/05/21 14:00 04/12/21 10:31 Quetiapine 25 Mg Tab PO 50 mg BID BLANCA Administration Senna/Docusate Sodium 2 tab 04/02/21 10:00 04/12/21 10:33 Sennosides/Docusate Sodium 8.6/50 Mg Tab FEEDTUBE Not Given BID BLANCA Sodium Chloride 10 ml 03/09/21 10:00 04/12/21 10:35 Sodium Chloride 0.9% 10 Ml Flush Syringe IV 10 ml BID BLANCA Administration Sodium Chloride 10 ml 03/09/21 01:26 04/10/21 21:07 Sodium Chloride 0.9% 10 Ml Flush Syringe IV 10 ml PRN PRN Administration LINE FLUSH Sodium Chloride 10 ml 03/20/21 09:48 Sodium Chloride 0.9% 50 Ml Ivpb IV PRN PRN FLUSH Nutrition/Malnutrition Assess - Dietary Evaluation Nutrition/Malnutrition Findings: Nutrition Notes Start: 03/09/21 08:49 Freq: Status: Active Protocol: Document 04/07/21 14:55 BRIAN (Rec: 04/07/21 14:58 BRIAN [id number]) Nutrition Notes Initial or Follow up Reassessment Current Diagnosis Diabetes,Sepsis,Hypertension, Respiratory Failure Other Pertinent Diagnosis COVID-19, Bilateral Pneumonia. Current Diet TF-Glucerna 1.2 at 70 ml/hr Labs/Tests BG 216 Pertinent Medications Heparin gtt, Miralax, Senokot Height 5 ft 11 in Weight 122 kg [place] Body Weight (kg) 78.18 BMI 37.5 Weight Status Obese Subjective/Other Information Pt remains on vent support. Per RN, pt tolerating TF at goal rate. Percent of energy/protein needs met: 82% energy 78% pro Burn Absent Trauma Absent #1 Nutrition Diagnosis Inadequate oral intake Diagnosis Progress(for reassessment Continues documentation) Is patient on ventilator? Yes Is Patient Ambulatory and/or Out of Bed No REE-([facility]-confined to bed) 7979.140 Calculation Used for Recommendations 70-80% energy needs Additional Notes Energy needs: 8526-1305 kcal/ day Pro needs 1.3g/kg adjBW: 130g/ day Fluid needs 1ml/kcal Nutrition Intervention Nutrition Support: Continue Glucerna 1.2 at 70ml/ hr with 110ml water flush q4h. Kcal 2,016 Protein (gm) 101 Carbohydrates (gm) 192 Fat (gm) 101 Fluid (mL) 1,352 Fiber (gm) 27 Goal #1 TF tolerance Goal #2 TF to meet at least 75% energy and pro needs Follow-Up By: 04/14/21 Additional Comments F/U: stable TF, vent status, wt <ARABELLA CASTILLO E - Last Filed: 04/13/21 08:08> Assessment and Plan Assessment and plan: I saw and evaluated the patient. I agree with the findings and the plan of care as documented in the Nurse Practitioner's~note, with the following corrections and additions. Hospitalist Physical - Constitutional Vitals: Temp Pulse Resp BP Pulse Ox 98.0 F 99 H 24 125/81 99 04/13/21 07:47 04/13/21 07:41 04/13/21 05:00 04/13/21 07:41 04/13/21 07:43 Results - Labs CBC & Chem 7: 04/13/21 04:34 04/13/21 04:34 Labs: Laboratory Last Values WBC 12.5 K/mm3 (4.5-11.0) H 04/13/21 04:34 RBC 2.97 M/mm3 (3.65-5.03) L 04/13/21 04:34 Hgb 8.9 gm/dl (11.8-15.2) L 04/13/21 04:34 Hct 27.3 % (35.5-45.6) L 04/13/21 04:34 MCV 92 fl (84-94) 04/13/21 04:34 MCH 30 pg (28-32) 04/13/21 04:34 MCHC 33 % (32-34) 04/13/21 04:34 RDW 16.4 % (13.2-15.2) H 04/13/21 04:34 Plt Count 470 K/mm3 (140-440) H 04/13/21 04:34 Lymph % (Auto) 7.6 % (13.4-35.0) L 03/31/21 13:30 [place] % (Auto) 9.5 % (0.0-7.3) H 03/31/21 13:30 Eos % (Auto) 4.1 % (0.0-4.3) 03/31/21 13:30 Baso % (Auto) 0.5 % (0.0-1.8) 03/31/21 13:30 Lymph # (Auto) 0.6 K/mm3 (1.2-5.4) L 03/31/21 13:30 [place] # (Auto) 0.7 K/mm3 (0.0-0.8) 03/31/21 13:30 Eos # (Auto) 0.3 K/mm3 (0.0-0.4) 03/31/21 13:30 Baso # (Auto) 0.0 K/mm3 (0.0-0.1) 03/31/21 13:30 Add Manual Diff Complete 04/11/21 06:47 Total Counted 100 04/11/21 06:47 Seg Neutrophils % 78.3 % (40.0-70.0) H 03/31/21 13:30 Seg Neuts % (Manual) 76.0 % (40.0-70.0) H 04/11/21 06:47 Band Neutrophils % 2.0 % 04/11/21 06:47 Lymphocytes % (Manual) 10.0 % (13.4-35.0) L 04/11/21 06:47 Reactive Lymphs % (Man) 0 % 04/11/21 06:47 Monocytes % (Manual) 7.0 % (0.0-7.3) 04/11/21 06:47 Eosinophils % (Manual) 4.0 % (0.0-4.3) 04/11/21 06:47 Basophils % (Manual) 0 % (0.0-1.8) 04/11/21 06:47 Metamyelocytes % 1.0 % 04/11/21 06:47 Myelocytes % 0 % 04/11/21 06:47 Promyelocytes % 0 % 04/11/21 06:47 Blast Cells % 0 % 04/11/21 06:47 Nucleated RBC % Not Reportable 04/11/21 06:47 Seg Neutrophils # 5.8 K/mm3 (1.8-7.7) 03/31/21 13:30 Seg Neutrophils # Man 8.3 K/mm3 (1.8-7.7) H 04/11/21 06:47 Band Neutrophils # 0.2 K/mm3 04/11/21 06:47 Lymphocytes # (Manual) 1.1 K/mm3 (1.2-5.4) L 04/11/21 06:47 Abs React Lymphs (Man) 0.0 K/mm3 04/11/21 06:47 Monocytes # (Manual) 0.8 K/mm3 (0.0-0.8) 04/11/21 06:47 Eosinophils # (Manual) 0.4 K/mm3 (0.0-0.4) 04/11/21 06:47 Basophils # (Manual) 0.0 K/mm3 (0.0-0.1) 04/11/21 06:47 Metamyelocytes # 0.1 K/mm3 04/11/21 06:47 Myelocytes # 0.0 K/mm3 04/11/21 06:47 Promyelocytes # 0.0 K/mm3 04/11/21 06:47 Blast Cells # 0.0 K/mm3 04/11/21 06:47 WBC Morphology Not Reportable 04/11/21 06:47 Hypersegmented Neuts Not Reportable 04/11/21 06:47 Hyposegmented Neuts Not Reportable 04/11/21 06:47 Hypogranular Neuts Not Reportable 04/11/21 06:47 Smudge Cells Not Reportable 04/11/21 06:47 Toxic Granulation 1+ 04/11/21 06:47 Toxic Vacuolation Not Reportable 04/11/21 06:47 Dohle Bodies Not Reportable 04/11/21 06:47 Pelger-Huet Anomaly Not Reportable 04/11/21 06:47 Mely Rods Not Reportable 04/11/21 06:47 Platelet Estimate Consistent w auto 04/11/21 06:47 Clumped Platelets Not Reportable 04/11/21 06:47 Plt Clumps, EDTA Not Reportable 04/11/21 06:47 Large Platelets Not Reportable 04/11/21 06:47 Giant Platelets Not Reportable 04/11/21 06:47 Platelet Satelliting Not Reportable 04/11/21 06:47 Plt Morphology Comment Not Reportable 04/11/21 06:47 RBC Morphology Not Reportable 04/11/21 06:47 Dimorphic RBCs Not Reportable 04/11/21 06:47 Polychromasia Not Reportable 04/11/21 06:47 Hypochromasia Not Reportable 04/11/21 06:47 Poikilocytosis Not Reportable 04/11/21 06:47 Anisocytosis 1+ 04/11/21 06:47 Microcytosis Not Reportable 04/11/21 06:47 Macrocytosis Not Reportable 04/11/21 06:47 Spherocytes Not Reportable 04/11/21 06:47 Pappenheimer Bodies Not Reportable 04/11/21 06:47 Sickle Cells Not Reportable 04/11/21 06:47 Target Cells Not Reportable 04/11/21 06:47 Tear Drop Cells Not Reportable 04/11/21 06:47 Ovalocytes Not Reportable 04/11/21 06:47 Helmet Cells Not Reportable 04/11/21 06:47 [place] Bodies Not Reportable 04/11/21 06:47 [place] Rings Not Reportable 04/11/21 06:47 [place] Cells Not Reportable 04/11/21 06:47 Bite Cells Not Reportable 04/11/21 06:47 Crenated Cell Not Reportable 04/11/21 06:47 Elliptocytes Not Reportable 04/11/21 06:47 Acanthocytes (Spur) Not Reportable 04/11/21 06:47 Rouleaux Not Reportable 04/11/21 06:47 Hemoglobin C Crystals Not Reportable 04/11/21 06:47 Schistocytes Not Reportable 04/11/21 06:47 Malaria parasites Not Reportable 04/11/21 06:47 Shaheen Bodies Not Reportable 04/11/21 06:47 Hem Pathologist Commnt No 04/11/21 06:47 PT 13.4 Sec. (12.2-14.9) 04/11/21 18:17 INR 0.92 (0.87-1.13) 04/11/21 18:17 APTT 61.1 Sec. (24.2-36.6) H* 04/11/21 18:17 D-Dimer 1359.12 ng/mlDDU (0-234) H 03/17/21 04:40 Heparin Anti-Xa Level 1.03 U.I./ml (0.3-0.7) H 04/12/21 05:11 ABG pH 7.365 pH Units (7.350-7.450) 04/12/21 09:45 POC ABG pCO2 57.4 mmHg (32.0-48.0) H 04/06/21 04:49 ABG pCO2 73.4 mm Hg 04/12/21 09:45 POC ABG pO2 55.1 mmHg (83-108) L 04/06/21 04:49 ABG pO2 70.8 mm Hg (80.0-90.0) L 04/12/21 09:45 POC ABG HCO3 36.2 04/06/21 04:49 ABG HCO3 41.0 mmol/L (20.0-26.0) H 04/12/21 09:45 ABG O2 Saturation 96.3 % (95.0-99.0) 04/12/21 09:45 ABG O2 Content 11.0 (0.0-44) 04/12/21 09:45 POC ABG Base Excess 10.0 04/06/21 04:49 ABG Base Excess 13.7 mmol/L (-2.0-3.0) H 04/12/21 09:45 ABG Hemoglobin 8.3 gm/dl (14.0-18.0) L 04/12/21 09:45 ABG Oxyhemoglobin 87.5 (94-98) L 04/06/21 04:49 ABG Carboxyhemoglobin 1.8 % (0.0-5.0) 04/12/21 09:45 ABG Methemoglobin 0.6 % (0.0-1.5) 04/12/21 09:45 ABG Sodium 134.2 mmol/L (136.0-145.0) L 03/12/21 21:54 ABG Potassium 4.9 mmol/L (3.40-4.50) H 03/12/21 21:54 ABG Chloride 99.0 mmol/L (98-107) 03/12/21 21:54 ABG Glucose 306 mg/dL (65-95) H 03/12/21 21:54 Oxyhemoglobin 94.0 % (95.0-99.0) L 04/12/21 09:45 Carboxyhemoglobin 0.8 (0.5-1.5) 04/06/21 04:49 FiO2 55 % 04/12/21 09:45 FiO2 % 40.0 04/06/21 04:49 Sodium 139 mmol/L (137-145) 04/13/21 04:34 Potassium 4.4 mmol/L (3.6-5.0) 04/13/21 04:34 Chloride 96.6 mmol/L (98-107) L 04/13/21 04:34 Carbon Dioxide 41 mmol/L (22-30) H* D 04/13/21 04:34 Anion Gap 6 mmol/L 04/13/21 04:34 BUN 16 mg/dL (9-20) 04/13/21 04:34 Creatinine 0.3 mg/dL (0.8-1.3) L 04/13/21 04:34 Estimated GFR > 60 ml/min 04/13/21 04:34 BUN/Creatinine Ratio 53 % 04/13/21 04:34 Glucose 171 mg/dL (75-100) H 04/13/21 04:34 POC Glucose 141 mg/dL (70-105) H 04/13/21 05:17 Lactic Acid 1.90 mmol/L (0.7-2.0) 03/08/21 23:51 Calcium 9.5 mg/dL (8.4-10.2) 04/13/21 04:34 Phosphorus 3.50 mg/dL (2.5-4.5) 04/13/21 04:34 Magnesium 2.10 mg/dL (1.7-2.3) 04/13/21 04:34 Ferritin 976.4 ng/mL (30.0-300.0) H 03/15/21 04:00 Total Bilirubin 0.20 mg/dL (0.1-1.2) 03/12/21 08:03 AST 10 units/L (5-40) 03/12/21 08:03 ALT 16 units/L (7-56) 03/12/21 08:03 Alkaline Phosphatase 77 units/L (35-129) 03/12/21 08:03 Lactate Dehydrogenase 630 units/L (91-180) H 03/15/21 06:06 C-Reactive Protein 0.40 mg/dL (0.00-1.30) 03/17/21 04:40 NT-Pro-B Natriuret Pep 1053 pg/mL (0-900) H 03/08/21 20:24 Total Protein 6.0 g/dL (6.3-8.2) L 03/12/21 08:03 Albumin 2.9 g/dL (3.9-5) L 03/12/21 08:03 Albumin/Globulin Ratio 0.9 % 03/12/21 08:03 Triglycerides 305 mg/dL (2-149) H 03/22/21 07:26 Procalcitonin 0.17 ng/mL (<0.15) 04/01/21 07:16 Arterial Blood Glucose 306 mg/dL (65-95) H 03/12/21 21:54 Arterial Blood Ionized Calcium 5.0 mg/dL (4.6-5.3) 03/12/21 21:54 Urine Color Yellow (Yellow) 03/09/21 04:10 Urine Turbidity Slightly-cloudy (Clear) 03/09/21 04:10 Urine pH 5.0 (5.0-7.0) 03/09/21 04:10 Ur Specific [place] 1.041 (1.003-1.030) H 03/09/21 04:10 Urine Protein 100 mg/dl mg/dL (Negative) 03/09/21 04:10 Urine Glucose (UA) Neg mg/dL (Negative) 03/09/21 04:10 Urine Ketones Neg mg/dL (Negative) 03/09/21 04:10 Urine Blood Mod (Negative) 03/09/21 04:10 Urine Nitrite Neg (Negative) 03/09/21 04:10 Urine Bilirubin Neg (Negative) 03/09/21 04:10 Urine Urobilinogen 2.0 mg/dL (<2.0) 03/09/21 04:10 Ur Leukocyte Esterase Neg (Negative) 03/09/21 04:10 Urine WBC (Auto) 4.0 /HPF (0.0-6.0) 03/09/21 04:10 Urine RBC (Auto) 1.0 /HPF (0.0-6.0) 03/09/21 04:10 Urine Bacteria (Auto) 1+ /HPF (Negative) 03/09/21 04:10 Urine Mucus Few /HPF 03/09/21 04:10 Coronavirus (PCR) Positive (Negative) A 03/09/21 08:00 Miscellaneous Test Flexitest 1 03/16/21 13:14 Good/IV: Voiding Method Indwelling Catheter Active Medications - Current Medications Current Medications: Generic Name Dose Route Start Last Admin Trade Name Freq PRN Reason Stop Dose Admin Acetaminophen 650 mg 03/09/21 01:26 04/07/21 21:40 Acetaminophen 325 Mg Tab PO 650 mg Q4H PRN Administration Pain MILD(1-3)/Fever >100.5/RAYO Albuterol 2.5 mg 03/09/21 01:26 03/18/21 21:06 Albuterol 2.5 Mg/3 Ml Nebu IH 2.5 mg Q4HRT PRN Administration Shortness Of Breath Amlodipine Besylate 10 mg 04/11/21 10:00 04/12/21 10:33 Amlodipine 5 Mg Tab PO 10 mg QDAY BLANCA Administration Apixaban 10 mg 04/11/21 22:00 04/12/21 22:00 Apixaban 5 Mg Tab PO 04/18/21 10:01 10 mg Q12HR BLANCA Administration Protocol Apixaban 5 mg 04/18/21 22:00 Apixaban 5 Mg Tab PO Q12HR [facility] Protocol Arformoterol Tartrate 15 mcg 03/11/21 20:00 04/13/21 07:39 Arformoterol 15 Mcg/2 Ml Nebu IH 15 mcg Q12HRT BLANCA Administration Bisacodyl 10 mg 03/26/21 13:43 03/26/21 13:51 Bisacodyl [address] 10 mg QDAY PRN Administration Constipation Budesonide 0.5 mg 04/06/21 20:00 04/13/21 07:39 Budesonide 0.5 Mg/2 Ml Nebu IH 0.5 mg Q12HRT [facility] Administration Chlordiazepoxide HCl 75 mg 04/13/21 10:00 Chlordiazepoxide 25 Mg Cap PO Q12HR [facility] Dextrose 0 ml 03/20/21 10:52 Dextrose 10% *Hypoglycemia IV PRN PRN Hypoglycemia Doxazosin Mesylate 1 mg 04/05/21 22:00 04/12/21 22:01 Doxazosin 1 Mg Tab PO 1 mg BID BLANCA Administration Famotidine 20 mg 03/12/21 22:00 04/12/21 21:58 Famotidine 20 Mg Tab FEEDTUBE 20 mg BID BLANCA Administration Fentanyl 1 applic 03/31/21 15:00 04/12/21 10:31 Fentanyl 75 Mcg/Hr Patch 72hr TD 1 applic Q3D BLANCA Administration Fentanyl 50 mcg 04/04/21 17:00 04/08/21 18:11 Fentanyl 100 Mcg/2 Ml Inj IV 50 mcg Q10MIN PRN Administration ANALGESIA Furosemide 20 mg 04/13/21 08:00 Furosemide 20 Mg/2 Ml Inj IV 04/13/21 12:00 ONCE@0800 [facility] Hydralazine HCl 50 mg 03/23/21 14:26 04/13/21 06:03 Hydralazine 25 Mg Tab PO 50 mg Q8HR BLANCA Administration Fentanyl Citrate 2,000 mcg in 100 mls @ 6.1 mls/hr 04/04/21 17:00 04/13/21 06:20 Fentanyl Drip Premix IV 0 mcg/kg/hr TITR BLANCA 0 mls/hr Titration Protocol 1 MCG/KG/HR Insulin Glargine 18 units 04/07/21 22:00 04/12/21 21:58 Insulin Glargine 100 Units/Ml SUB-Q 18 units QHS BLANCA Administration Insulin Human Lispro 0 unit 03/11/21 18:00 04/13/21 05:29 Insulin Lispro 100 Unit/Ml SUB-Q Not Given Q6HR [facility] Protocol Metoprolol Tartrate 12.5 mg 03/21/21 22:00 04/12/21 22:00 Metoprolol Tartrate 25 Mg Tab PO 12.5 mg BID BLANCA Administration Midazolam HCl 2 mg 03/15/21 08:49 04/10/21 17:13 Midazolam 2 Mg/2 Ml Inj IV 2 mg Q2H PRN Administration VENT SYNCHRONY Ondansetron HCl 4 mg 03/09/21 01:26 Ondansetron 4 Mg/2 Ml Inj IV Q8H PRN Nausea And Vomiting Oxycodone HCl 5 mg 04/05/21 14:00 04/12/21 21:59 Oxycodone 5 Mg Tab PO 5 mg TID BLANCA Administration Phenyleph/Shark Oil/Min Oil/Petrol 1 applic 03/22/21 17:35 04/06/21 04:04 Pe/Mo/Pet,Wh 10 Applic/[address] 1 applic Q6HR PRN Administration Hemorrhoids Polyethylene Glycol 17 gm 04/02/21 10:00 04/12/21 10:33 Polyethylene Glycol 3350 17 Gm Powder FEEDTUBE Not Given QDAY [facility] Quetiapine Fumarate 50 mg 04/05/21 14:00 04/12/21 21:59 Quetiapine 25 Mg Tab PO 50 mg BID BALNCA Administration Senna/Docusate Sodium 2 tab 04/02/21 10:00 04/12/21 22:01 Sennosides/Docusate Sodium 8.6/50 Mg Tab FEEDTUBE Not Given BID [facility] Sodium Chloride 10 ml 03/09/21 10:00 04/12/21 22:00 Sodium Chloride 0.9% 10 Ml Flush Syringe IV 10 ml BID BLANCA Administration Sodium Chloride 10 ml 03/09/21 01:26 04/10/21 21:07 Sodium Chloride 0.9% 10 Ml Flush Syringe IV 10 ml PRN PRN Administration LINE FLUSH Sodium Chloride 10 ml 03/20/21 09:48 Sodium Chloride 0.9% 50 Ml Ivpb IV PRN PRN FLUSH Nutrition/Malnutrition Assess - Dietary Evaluation Nutrition/Malnutrition Findings: Nutrition Notes Start: 03/09/21 08:49 Freq: Status: Active Protocol: Document 04/07/21 14:55 BRIAN (Rec: 04/07/21 14:58 SDALL [id number]) Nutrition Notes Initial or Follow up Reassessment Current Diagnosis Diabetes,Sepsis,Hypertension, Respiratory Failure Other Pertinent Diagnosis COVID-19, Bilateral Pneumonia. Current Diet TF-Glucerna 1.2 at 70 ml/hr Labs/Tests BG 216 Pertinent Medications Heparin gtt, Miralax, Senokot Height 5 ft 11 in Weight 122 kg [place] Body Weight (kg) 78.18 BMI 37.5 Weight Status Obese Subjective/Other Information Pt remains on vent support. Per RN, pt tolerating TF at goal rate. Percent of energy/protein needs met: 82% energy 78% pro Burn Absent Trauma Absent #1 Nutrition Diagnosis Inadequate oral intake Diagnosis Progress(for reassessment Continues documentation) Is patient on ventilator? Yes Is Patient Ambulatory and/or Out of Bed No REE-([facility]-confined to bed) 2449.140 Calculation Used for Recommendations 70-80% energy needs Additional Notes Energy needs: 7352-4622 kcal/ day Pro needs 1.3g/kg adjBW: 130g/ day Fluid needs 1ml/kcal Nutrition Intervention Nutrition Support: Continue Glucerna 1.2 at 70ml/ hr with 110ml water flush q4h. Kcal 2,016 Protein (gm) 101 Carbohydrates (gm) 192 Fat (gm) 101 Fluid (mL) 1,352 Fiber (gm) 27 Goal #1 TF tolerance Goal #2 TF to meet at least 75% energy and pro needs Follow-Up By: 04/14/21 Additional Comments F/U: stable TF, vent status, wt
--- NOTE | 2021-04-12 14:03 | Progress Note ---
Assessment and Plan Cultures: SARS CoV2 PCR: positive 03/08/2021 blood culture: no growth 03/10/2021 sputum culture: Usual respiratory marlyn 03/16/2021 blood culture: no growth 03/18/2021 sputum culture: Stenotrophomonas 03/31/2021 Blood culture: no growth 03/31/2021 tracheal aspirate: usual resp marlyn A/P: 61-year-old male with diabetes, hypertension admitted to the hospital with complaints of shortness of breath and feeling weak for the last 1 week: #Sepsis secondary to bilateral pneumonia: secondary to COVID-19. Completed remd esivir, s/p Actemra, steroids. Completed abx for bacterial pneumonia, Stenotrophomonas. #Acute hypoxic respiratory failure: s/p trach and PEG. #DM #HTN #Acute DVT in RUE Recs: -afebrile, continue off abx Sangita Nicole MD, FACP, [facility] ([facility] O: [phone] F: [phone] Subjective Date of service: 04/12/21 Principal diagnosis: COVID-19 infection; DM II; Bilateral pneumonia; Obesity; HTN Interval history: No fever. Remains on the vent via trach. Objective - Exam Narrative Exam: Physical Exam Constitutional: on the vent Head, Ears, Nose: Normocephalic, atraumatic. External ears, nose normal Eyes: Conjunctivae/corneas clear. No icterus. Neck: trach + Cardiovascular: S1, S2 + Respiratory: AE fair GI: Soft, bowel sounds +, PEG + Musculoskeletal: edema + Skin: No rash or abscess Hem/Lymphatic: No palpable cervical or supraclavicular nodes. No lymphangitis Psych: no agitation Neurological: on the vent, exam limited - Constitutional Vitals: Vital Signs Temp Pulse Resp BP Pulse Ox 99.3 F 101 H 28 H 111/56 98 04/12/21 12:00 04/12/21 13:00 04/12/21 13:00 04/12/21 13:00 04/12/21 13:00 Temperature -Last 24 Hours Temperature 99.3 F Temperature 99.3 F Temperature 99.6 F Temperature 99.6 F Temperature 98.2 F Temperature 98.6 F Temperature 97.8 F - Labs CBC & Chem 7: 04/12/21 05:11 04/12/21 05:11 Labs: Abnormal lab results 04/11/21 04/11/21 04/11/21 Range/Units 18:17 18:17 18:17 RBC 3.22 L (3.65-5.03) M/mm3 Hgb 9.5 L (11.8-15.2) gm/dl Hct 29.8 L (35.5-45.6) % RDW 16.0 H (13.2-15.2) % Plt Count (140-440) K/mm3 APTT 61.1 H* (24.2-36.6) Sec. Heparin Anti-Xa Level (0.3-0.7) U.I./ml ABG pO2 (80.0-90.0) mm Hg ABG HCO3 (20.0-26.0) mmol/L ABG Base Excess (-2.0-3.0) mmol/L ABG Hemoglobin (14.0-18.0) gm/dl Oxyhemoglobin (95.0-99.0) % Carbon Dioxide (22-30) mmol/L Creatinine 0.3 L (0.8-1.3) mg/dL Glucose (75-100) mg/dL POC Glucose (70-105) mg/dL 04/11/21 04/12/21 04/12/21 Range/Units 18:25 00:19 05:11 RBC 2.92 L (3.65-5.03) M/mm3 Hgb 8.6 L (11.8-15.2) gm/dl Hct 26.9 L (35.5-45.6) % RDW 16.3 H (13.2-15.2) % Plt Count 460 H (140-440) K/mm3 APTT (24.2-36.6) Sec. Heparin Anti-Xa Level (0.3-0.7) U.I./ml ABG pO2 (80.0-90.0) mm Hg ABG HCO3 (20.0-26.0) mmol/L ABG Base Excess (-2.0-3.0) mmol/L ABG Hemoglobin (14.0-18.0) gm/dl Oxyhemoglobin (95.0-99.0) % Carbon Dioxide (22-30) mmol/L Creatinine (0.8-1.3) mg/dL Glucose (75-100) mg/dL POC Glucose 167 H 128 H (70-105) mg/dL 04/12/21 04/12/21 04/12/21 Range/Units 05:11 05:11 06:23 RBC (3.65-5.03) M/mm3 Hgb (11.8-15.2) gm/dl Hct (35.5-45.6) % RDW (13.2-15.2) % Plt Count (140-440) K/mm3 APTT (24.2-36.6) Sec. Heparin Anti-Xa Level 1.03 H (0.3-0.7) U.I./ml ABG pO2 (80.0-90.0) mm Hg ABG HCO3 (20.0-26.0) mmol/L ABG Base Excess (-2.0-3.0) mmol/L ABG Hemoglobin (14.0-18.0) gm/dl Oxyhemoglobin (95.0-99.0) % Carbon Dioxide 34 H (22-30) mmol/L Creatinine 0.3 L (0.8-1.3) mg/dL Glucose 153 H (75-100) mg/dL POC Glucose 162 H (70-105) mg/dL 04/12/21 04/12/21 Range/Units 09:45 11:08 RBC (3.65-5.03) M/mm3 Hgb (11.8-15.2) gm/dl Hct (35.5-45.6) % RDW (13.2-15.2) % Plt Count (140-440) K/mm3 APTT (24.2-36.6) Sec. Heparin Anti-Xa Level (0.3-0.7) U.I./ml ABG pO2 70.8 L (80.0-90.0) mm Hg ABG HCO3 41.0 H (20.0-26.0) mmol/L ABG Base Excess 13.7 H (-2.0-3.0) mmol/L ABG Hemoglobin 8.3 L (14.0-18.0) gm/dl Oxyhemoglobin 94.0 L (95.0-99.0) % Carbon Dioxide (22-30) mmol/L Creatinine (0.8-1.3) mg/dL Glucose (75-100) mg/dL POC Glucose 174 H (70-105) mg/dL
--- NOTE | 2021-04-12 18:16 | Progress Note ---
Assessment and Plan Acute hypoxemic respiratory failure, on MVS s/p tracheostomy COVID-19 infection Bilateral pneumonia Obesity BMI 36 Hypertension Leukocytosis Possible venous thromboembolic phenomena with significantly elevated D-dimers DM II Elevated serum inflammatory markers to include CRP levels, ferritin and LDH Antibiotics-- will get tracheal aspirate and recommend broadening antibiotics with new infiltrates on CXR and increasing FIO2 requirements. defer ID Intermittent sedation and analgesia. Stop continuous infusion to allow for better assessment of neurologic function Daily assessment to wean, daily SAT and SBT Trach care, airway clearance, secretion management Continue with diuretic therapy to keep him negative fluid balance Monitor electrolytes while on diuretics- replete as clinically indicated. Keep potassium at 4, Magnesium at 2 and Phos at 2.5 Monitor hemodynamics while on diuretic therapy CXR, ABG as clinically indicated Trend temperature curve and WCC - VAP bundle addressed, aspiration precautions HOB>40 - continue to titrate supplemental oxygen to keep SpO2 88-90% - continue bronchodilators with pulmonary hygiene per RT - continue accuchecks with glycemic control per SSI (While critically ill target blood glucose of 140-180 mg/dL; avoid hypoglycemia) -continue to avoid nephrotoxins, renally dose all medications - continue to avoid benzodiazepines, reduce the possibility of delirium - continue sedation with target for RASS -1 to -2 - continue with prn analgesia per pain score - continue with maintenance of sleep-wake cycle, avoid delirium -continue with stress ulcer prophylaxis -Therapeutic anticoagulation- on Apixaban - mobility, off loading and frequent turning per facility protocol for pressure ulcer prevention - Monitor hemodynamics closely - continue other care per attending / other consultants COVID SPECIFIC INTERVENTIONS - s/p Remdesivir per ID/Pulmonary developed protocols - s/p systemic steroids for severe COVID-19 infection CONDITION: CRITICAL PROGNOSIS: GUARDED CODE STATUS: FULL CODE The high probability of a clinically significant, sudden or life-threatening deterioration of the respiratory, cardiovascular, neurology system(s) required my full and direct attention, intervention and personal management. The aggregate critical care time was [33] minutes without overlap. Time includes spent on; [x] Data Review and interpretation [x] Patient assessment and monitoring of vital signs [x] Documentation [x] Medication orders and management Subjective Date of service: 04/12/21 Principal diagnosis: COVID-19 infection; DM II; Bilateral pneumonia; Obesity; HTN Interval history: Patient is seen today for: Acute hypoxemic respiratory failure; COVID-19 infection; DM II; Bilateral pneumonia; Obesity; HTN Seen and examined at bedside; 24hour events reviewed; nursing and respiratory care staff consulted; no adverse overnight events reported to me; resting in bed; on MVS PEEP +8, FIO2 55 %; no emesis or overt aspiration;no fevers this morning. he however has increased work of breathing. Reviewed CXR it appears he has infiltrates that are alveolar and interstitial. Increased tracheal secretions Objective Vital Signs - 12hr 04/12/21 04/12/21 04/12/21 06:30 07:00 07:18 Temperature 99.6 F Pulse Rate 99 H 104 H Pulse Rate [ Bilateral Throughout] Pulse Rate [ From Monitor] Respiratory 19 41 H Rate Respiratory Rate [Bilateral Throughout] Blood Pressure 99/47 154/76 O2 Sat by Pulse 100 99 Oximetry O2 Sat by Pulse Oximetry [ Assessment] 04/12/21 04/12/21 04/12/21 07:30 08:00 08:30 Temperature 99.6 F Pulse Rate 108 H 106 H 102 H Pulse Rate [ 107 H Bilateral Throughout] Pulse Rate [ 103 H From Monitor] Respiratory 32 H 17 25 H Rate Respiratory 17 Rate [Bilateral Throughout] Blood Pressure 140/64 131/61 105/46 O2 Sat by Pulse 98 100 97 Oximetry O2 Sat by Pulse 100 Oximetry [ Assessment] 04/12/21 04/12/21 04/12/21 09:00 09:30 10:00 Temperature Pulse Rate 105 H 113 H 109 H Pulse Rate [ Bilateral Throughout] Pulse Rate [ From Monitor] Respiratory 20 34 H 35 H Rate Respiratory Rate [Bilateral Throughout] Blood Pressure 135/62 164/79 130/59 O2 Sat by Pulse 98 98 96 Oximetry O2 Sat by Pulse Oximetry [ Assessment] 04/12/21 04/12/21 04/12/21 10:30 10:31 10:32 Temperature Pulse Rate 107 H 108 H 108 H Pulse Rate [ Bilateral Throughout] Pulse Rate [ From Monitor] Respiratory 63 H Rate Respiratory Rate [Bilateral Throughout] Blood Pressure 124/62 124/62 124/62 O2 Sat by Pulse 97 Oximetry O2 Sat by Pulse Oximetry [ Assessment] 04/12/21 04/12/21 04/12/21 10:33 11:00 11:30 Temperature Pulse Rate 108 H 108 H 102 H Pulse Rate [ Bilateral Throughout] Pulse Rate [ From Monitor] Respiratory 29 H 31 H Rate Respiratory Rate [Bilateral Throughout] Blood Pressure 124/62 109/52 110/50 O2 Sat by Pulse 98 97 Oximetry O2 Sat by Pulse Oximetry [ Assessment] 04/12/21 04/12/21 04/12/21 11:47 12:00 12:30 Temperature 99.3 F 99.3 F Pulse Rate 103 H 107 H Pulse Rate [ Bilateral Throughout] Pulse Rate [ 104 H From Monitor] Respiratory 29 H 31 H Rate Respiratory Rate [Bilateral Throughout] Blood Pressure 120/63 131/61 O2 Sat by Pulse 99 98 Oximetry O2 Sat by Pulse Oximetry [ Assessment] 04/12/21 04/12/21 04/12/21 13:00 13:30 14:00 Temperature Pulse Rate 101 H 108 H 105 H Pulse Rate [ Bilateral Throughout] Pulse Rate [ From Monitor] Respiratory 28 H 35 H 27 H Rate Respiratory Rate [Bilateral Throughout] Blood Pressure 111/56 141/77 129/70 O2 Sat by Pulse 98 99 96 Oximetry O2 Sat by Pulse Oximetry [ Assessment] 04/12/21 04/12/21 04/12/21 14:30 15:00 15:30 Temperature Pulse Rate 105 H 113 H 109 H Pulse Rate [ Bilateral Throughout] Pulse Rate [ From Monitor] Respiratory 29 H 21 31 H Rate Respiratory Rate [Bilateral Throughout] Blood Pressure 132/66 141/92 150/68 O2 Sat by Pulse 97 96 100 Oximetry O2 Sat by Pulse Oximetry [ Assessment] 04/12/21 04/12/21 04/12/21 15:34 16:00 16:19 Temperature 98.1 F Pulse Rate 110 H 108 H Pulse Rate [ Bilateral Throughout] Pulse Rate [ 108 H From Monitor] Respiratory 31 H Rate Respiratory Rate [Bilateral Throughout] Blood Pressure 150/68 137/68 O2 Sat by Pulse 98 Oximetry O2 Sat by Pulse Oximetry [ Assessment] 04/12/21 04/12/21 04/12/21 16:30 17:00 17:30 Temperature Pulse Rate 105 H 107 H 108 H Pulse Rate [ Bilateral Throughout] Pulse Rate [ From Monitor] Respiratory 42 H 36 H 34 H Rate Respiratory Rate [Bilateral Throughout] Blood Pressure 162/90 148/59 142/69 O2 Sat by Pulse 98 99 99 Oximetry O2 Sat by Pulse Oximetry [ Assessment] 04/12/21 18:00 Temperature Pulse Rate 107 H Pulse Rate [ Bilateral Throughout] Pulse Rate [ From Monitor] Respiratory 32 H Rate Respiratory Rate [Bilateral Throughout] Blood Pressure 141/66 O2 Sat by Pulse 99 Oximetry O2 Sat by Pulse Oximetry [ Assessment] Constitutional: no acute distress, agitated, other (elderly obese male with mildly increased respiratory effort at rest) Eyes: non-icteric ENT: oropharynx moist, other (+ midline tracheostomy) Neck: supple, no lymphadenopathy, no JVD, other (large circumference) Effort: mildly labored Ascultation: Bilateral: diminished breath sounds, rales, rhonchi Percussion: Bilateral: not dull Cardiovascular: regular rate and rhythm, other (tachycardia, S1,S2) Gastrointestinal: normoactive bowel sounds, soft, non-tender, non-distended (protuberant) Integumentary: normal Extremities: no cyanosis, pulses normal, no ischemia or petechiae, edema (upper extremities), other Neurologic: pupils equal and round, other (sedated) Psychiatric: other (unable to assess re: AMS) CBC and BMP: 04/17/21 04:25 04/17/21 04:25 ABG, PT/INR, D-dimer: ABG ABG pH 7.365 pH Units (7.350-7.450) 04/12/21 09:45 POC ABG pCO2 57.4 mmHg (32.0-48.0) H 04/06/21 04:49 ABG pCO2 73.4 mm Hg 04/12/21 09:45 POC ABG pO2 55.1 mmHg (83-108) L 04/06/21 04:49 ABG pO2 70.8 mm Hg (80.0-90.0) L 04/12/21 09:45 POC ABG HCO3 36.2 04/06/21 04:49 ABG O2 Saturation 96.3 % (95.0-99.0) 04/12/21 09:45 PT/INR, D-dimer PT 13.4 Sec. (12.2-14.9) 04/11/21 18:17 INR 0.92 (0.87-1.13) 04/11/21 18:17 D-Dimer 1359.12 ng/mlDDU (0-234) H 03/17/21 04:40 Abnormal lab findings: Abnormal Labs 03/08/21 03/08/21 03/08/21 20:24 20:24 20:24 WBC 22.6 H RBC 5.44 H Hgb 15.7 H Hct 49.2 H MCV MCHC RDW Plt Count Lymph % (Auto) [place] % (Auto) Lymph # (Auto) [place] # (Auto) Seg Neutrophils % Seg Neuts % (Manual) 83.0 H Lymphocytes % (Manual) 9.0 L Monocytes % (Manual) 8.0 H Nucleated RBC % Seg Neutrophils # Seg Neutrophils # Man 18.8 H Lymphocytes # (Manual) Monocytes # (Manual) 1.8 H PT 16.1 H INR 1.17 H APTT D-Dimer > 42460 H Heparin Anti-Xa Level ABG pH POC ABG pCO2 POC ABG pO2 ABG pO2 ABG HCO3 ABG O2 Saturation ABG Base Excess ABG Hemoglobin ABG Oxyhemoglobin ABG Sodium ABG Potassium ABG Glucose Oxyhemoglobin Sodium 136 L Potassium Chloride 93.9 L Carbon Dioxide BUN 29 H Creatinine Glucose 208 H POC Glucose Lactic Acid Calcium Phosphorus Magnesium Ferritin Lactate Dehydrogenase 624 H C-Reactive Protein 18.00 H NT-Pro-B Natriuret Pep 1053 H Total Protein Albumin Triglycerides Arterial Blood Glucose Ur Specific [place] Coronavirus (PCR) 03/08/21 03/08/21 03/09/21 20:24 20:24 04:10 WBC RBC Hgb Hct MCV MCHC RDW Plt Count Lymph % (Auto) [place] % (Auto) Lymph # (Auto) [place] # (Auto) Seg Neutrophils % Seg Neuts % (Manual) Lymphocytes % (Manual) Monocytes % (Manual) Nucleated RBC % Seg Neutrophils # Seg Neutrophils # Man Lymphocytes # (Manual) Monocytes # (Manual) PT INR APTT D-Dimer Heparin Anti-Xa Level ABG pH POC ABG pCO2 POC ABG pO2 ABG pO2 ABG HCO3 ABG O2 Saturation ABG Base Excess ABG Hemoglobin ABG Oxyhemoglobin ABG Sodium ABG Potassium ABG Glucose Oxyhemoglobin Sodium Potassium Chloride Carbon Dioxide BUN Creatinine Glucose POC Glucose Lactic Acid 2.10 H* Calcium Phosphorus Magnesium Ferritin 877.5 H Lactate Dehydrogenase C-Reactive Protein NT-Pro-B Natriuret Pep Total Protein Albumin Triglycerides Arterial Blood Glucose Ur Specific [place] 1.041 H Coronavirus (PCR) 03/09/21 03/09/21 03/09/21 07:46 08:00 13:01 WBC RBC Hgb Hct MCV MCHC RDW Plt Count Lymph % (Auto) [place] % (Auto) Lymph # (Auto) [place] # (Auto) Seg Neutrophils % Seg Neuts % (Manual) Lymphocytes % (Manual) Monocytes % (Manual) Nucleated RBC % Seg Neutrophils # Seg Neutrophils # Man Lymphocytes # (Manual) Monocytes # (Manual) PT INR APTT D-Dimer Heparin Anti-Xa Level ABG pH POC ABG pCO2 POC ABG pO2 ABG pO2 ABG HCO3 ABG O2 Saturation ABG Base Excess ABG Hemoglobin ABG Oxyhemoglobin ABG Sodium ABG Potassium ABG Glucose Oxyhemoglobin Sodium Potassium Chloride Carbon Dioxide BUN Creatinine Glucose POC Glucose 191 H 182 H Lactic Acid Calcium Phosphorus Magnesium Ferritin Lactate Dehydrogenase C-Reactive Protein NT-Pro-B Natriuret Pep Total Protein Albumin Triglycerides Arterial Blood Glucose Ur Specific [place] Coronavirus (PCR) Positive A 03/09/21 03/09/21 03/09/21 15:19 17:48 18:10 WBC RBC Hgb Hct MCV MCHC RDW Plt Count Lymph % (Auto) [place] % (Auto) Lymph # (Auto) [place] # (Auto) Seg Neutrophils % Seg Neuts % (Manual) Lymphocytes % (Manual) Monocytes % (Manual) Nucleated RBC % Seg Neutrophils # Seg Neutrophils # Man Lymphocytes # (Manual) Monocytes # (Manual) PT INR APTT D-Dimer Heparin Anti-Xa Level ABG pH POC ABG pCO2 POC ABG pO2 ABG pO2 47.3 L ABG HCO3 26.3 H ABG O2 Saturation 83.7 L ABG Base Excess ABG Hemoglobin ABG Oxyhemoglobin ABG Sodium ABG Potassium ABG Glucose Oxyhemoglobin 82.1 L Sodium Potassium Chloride Carbon Dioxide BUN 29 H Creatinine Glucose 214 H POC Glucose 194 H Lactic Acid Calcium Phosphorus Magnesium Ferritin Lactate Dehydrogenase C-Reactive Protein NT-Pro-B Natriuret Pep Total Protein Albumin 3.4 L Triglycerides Arterial Blood Glucose Ur Specific [place] Coronavirus (PCR) 03/09/21 03/10/21 03/10/21 20:40 04:29 04:29 WBC 20.6 H RBC 5.07 H Hgb Hct 46.2 H MCV MCHC RDW Plt Count Lymph % (Auto) [place] % (Auto) Lymph # (Auto) [place] # (Auto) Seg Neutrophils % Seg Neuts % (Manual) 94.0 H Lymphocytes % (Manual) 1.0 L Monocytes % (Manual) Nucleated RBC % 3.0 H Seg Neutrophils # Seg Neutrophils # Man 19.4 H Lymphocytes # (Manual) 0.2 L Monocytes # (Manual) 1.0 H PT INR APTT D-Dimer Heparin Anti-Xa Level ABG pH POC ABG pCO2 POC ABG pO2 ABG pO2 ABG HCO3 ABG O2 Saturation ABG Base Excess ABG Hemoglobin ABG Oxyhemoglobin ABG Sodium ABG Potassium ABG Glucose Oxyhemoglobin Sodium Potassium Chloride Carbon Dioxide BUN 29 H Creatinine Glucose 188 H POC Glucose 176 H Lactic Acid Calcium Phosphorus Magnesium Ferritin Lactate Dehydrogenase C-Reactive Protein NT-Pro-B Natriuret Pep Total Protein Albumin 3.3 L Triglycerides Arterial Blood Glucose Ur Specific [place] Coronavirus (PCR) 03/10/21 03/10/21 03/10/21 05:22 10:27 15:25 WBC RBC Hgb Hct MCV MCHC RDW Plt Count Lymph % (Auto) [place] % (Auto) Lymph # (Auto) [place] # (Auto) Seg Neutrophils % Seg Neuts % (Manual) Lymphocytes % (Manual) Monocytes % (Manual) Nucleated RBC % Seg Neutrophils # Seg Neutrophils # Man Lymphocytes # (Manual) Monocytes # (Manual) PT INR APTT D-Dimer Heparin Anti-Xa Level ABG pH 7.488 H 7.488 H POC ABG pCO2 POC ABG pO2 ABG pO2 47.7 L 50.5 L ABG HCO3 ABG O2 Saturation 86.2 L 87.9 L ABG Base Excess ABG Hemoglobin ABG Oxyhemoglobin ABG Sodium ABG Potassium ABG Glucose Oxyhemoglobin 84.6 L 86.2 L Sodium Potassium Chloride Carbon Dioxide BUN Creatinine Glucose POC Glucose 155 H Lactic Acid Calcium Phosphorus Magnesium Ferritin Lactate Dehydrogenase C-Reactive Protein NT-Pro-B Natriuret Pep Total Protein Albumin Triglycerides Arterial Blood Glucose Ur Specific [place] Coronavirus (PCR) 03/10/21 03/10/21 03/11/21 18:10 18:55 00:07 WBC RBC Hgb Hct MCV MCHC RDW Plt Count Lymph % (Auto) [place] % (Auto) Lymph # (Auto) [place] # (Auto) Seg Neutrophils % Seg Neuts % (Manual) Lymphocytes % (Manual) Monocytes % (Manual) Nucleated RBC % Seg Neutrophils # Seg Neutrophils # Man Lymphocytes # (Manual) Monocytes # (Manual) PT INR APTT D-Dimer Heparin Anti-Xa Level ABG pH 7.343 L POC ABG pCO2 POC ABG pO2 ABG pO2 60.4 L ABG HCO3 27.9 H ABG O2 Saturation 88.7 L ABG Base Excess ABG Hemoglobin ABG Oxyhemoglobin ABG Sodium ABG Potassium ABG Glucose Oxyhemoglobin 86.9 L Sodium Potassium Chloride Carbon Dioxide BUN Creatinine Glucose POC Glucose 187 H 139 H Lactic Acid Calcium Phosphorus Magnesium Ferritin Lactate Dehydrogenase C-Reactive Protein NT-Pro-B Natriuret Pep Total Protein Albumin Triglycerides Arterial Blood Glucose Ur Specific [place] Coronavirus (PCR) 03/11/21 03/11/21 03/11/21 02:09 04:28 08:06 WBC RBC Hgb Hct MCV MCHC RDW Plt Count Lymph % (Auto) [place] % (Auto) Lymph # (Auto) [place] # (Auto) Seg Neutrophils % Seg Neuts % (Manual) Lymphocytes % (Manual) Monocytes % (Manual) Nucleated RBC % Seg Neutrophils # Seg Neutrophils # Man Lymphocytes # (Manual) Monocytes # (Manual) PT INR APTT D-Dimer Heparin Anti-Xa Level ABG pH 7.277 L POC ABG pCO2 55.9 H POC ABG pO2 54.4 L ABG pO2 ABG HCO3 ABG O2 Saturation ABG Base Excess ABG Hemoglobin ABG Oxyhemoglobin 83.0 L ABG Sodium ABG Potassium 4.8 H ABG Glucose 180 H Oxyhemoglobin Sodium Potassium Chloride Carbon Dioxide BUN 38 H Creatinine Glucose 249 H POC Glucose 278 H Lactic Acid Calcium Phosphorus Magnesium Ferritin Lactate Dehydrogenase C-Reactive Protein NT-Pro-B Natriuret Pep Total Protein Albumin 3.2 L Triglycerides Arterial Blood Glucose 180 H Ur Specific [place] Coronavirus (PCR) 03/11/21 03/11/21 03/11/21 11:29 15:06 15:48 WBC RBC Hgb Hct MCV MCHC RDW Plt Count Lymph % (Auto) [place] % (Auto) Lymph # (Auto) [place] # (Auto) Seg Neutrophils % Seg Neuts % (Manual) Lymphocytes % (Manual) Monocytes % (Manual) Nucleated RBC % Seg Neutrophils # Seg Neutrophils # Man Lymphocytes # (Manual) Monocytes # (Manual) PT INR APTT D-Dimer Heparin Anti-Xa Level ABG pH 7.260 L POC ABG pCO2 POC ABG pO2 ABG pO2 53.5 L ABG HCO3 29.5 H ABG O2 Saturation 84.0 L ABG Base Excess ABG Hemoglobin ABG Oxyhemoglobin ABG Sodium ABG Potassium ABG Glucose Oxyhemoglobin 82.3 L Sodium Potassium Chloride Carbon Dioxide BUN Creatinine Glucose POC Glucose 288 H 295 H Lactic Acid Calcium Phosphorus Magnesium Ferritin Lactate Dehydrogenase C-Reactive Protein NT-Pro-B Natriuret Pep Total Protein Albumin Triglycerides Arterial Blood Glucose Ur Specific [place] Coronavirus (PCR) 03/12/21 03/12/21 03/12/21 00:01 05:24 08:03 WBC RBC Hgb Hct MCV MCHC RDW Plt Count Lymph % (Auto) [place] % (Auto) Lymph # (Auto) [place] # (Auto) Seg Neutrophils % Seg Neuts % (Manual) Lymphocytes % (Manual) Monocytes % (Manual) Nucleated RBC % Seg Neutrophils # Seg Neutrophils # Man Lymphocytes # (Manual) Monocytes # (Manual) PT INR APTT D-Dimer Heparin Anti-Xa Level ABG pH POC ABG pCO2 POC ABG pO2 ABG pO2 ABG HCO3 ABG O2 Saturation ABG Base Excess ABG Hemoglobin ABG Oxyhemoglobin ABG Sodium ABG Potassium ABG Glucose Oxyhemoglobin Sodium 135 L Potassium Chloride Carbon Dioxide BUN 48 H Creatinine Glucose 358 H POC Glucose 304 H 310 H Lactic Acid Calcium Phosphorus Magnesium Ferritin Lactate Dehydrogenase C-Reactive Protein NT-Pro-B Natriuret Pep Total Protein 6.0 L Albumin 2.9 L Triglycerides Arterial Blood Glucose Ur Specific [place] Coronavirus (PCR) 03/12/21 03/12/21 03/12/21 08:03 10:43 11:31 WBC 14.6 H RBC Hgb Hct MCV MCHC RDW Plt Count Lymph % (Auto) [place] % (Auto) Lymph # (Auto) [place] # (Auto) Seg Neutrophils % Seg Neuts % (Manual) Lymphocytes % (Manual) Monocytes % (Manual) Nucleated RBC % Seg Neutrophils # Seg Neutrophils # Man Lymphocytes # (Manual) Monocytes # (Manual) PT INR APTT D-Dimer Heparin Anti-Xa Level ABG pH 7.248 L POC ABG pCO2 POC ABG pO2 ABG pO2 73.7 L ABG HCO3 32.0 H ABG O2 Saturation 93.9 L ABG Base Excess ABG Hemoglobin ABG Oxyhemoglobin ABG Sodium ABG Potassium ABG Glucose Oxyhemoglobin 92.1 L Sodium Potassium Chloride Carbon Dioxide BUN Creatinine Glucose POC Glucose 359 H Lactic Acid Calcium Phosphorus Magnesium Ferritin Lactate Dehydrogenase C-Reactive Protein NT-Pro-B Natriuret Pep Total Protein Albumin Triglycerides Arterial Blood Glucose Ur Specific [place] Coronavirus (PCR) 03/12/21 03/12/21 03/13/21 17:20 21:54 00:02 WBC RBC Hgb Hct MCV MCHC RDW Plt Count Lymph % (Auto) [place] % (Auto) Lymph # (Auto) [place] # (Auto) Seg Neutrophils % Seg Neuts % (Manual) Lymphocytes % (Manual) Monocytes % (Manual) Nucleated RBC % Seg Neutrophils # Seg Neutrophils # Man Lymphocytes # (Manual) Monocytes # (Manual) PT INR APTT D-Dimer Heparin Anti-Xa Level ABG pH 7.238 L POC ABG pCO2 71.9 H POC ABG pO2 53.6 L ABG pO2 ABG HCO3 ABG O2 Saturation ABG Base Excess ABG Hemoglobin ABG Oxyhemoglobin 84.8 L ABG Sodium 134.2 L ABG Potassium 4.9 H ABG Glucose 306 H Oxyhemoglobin Sodium Potassium Chloride Carbon Dioxide BUN Creatinine Glucose POC Glucose 374 H 308 H Lactic Acid Calcium Phosphorus Magnesium Ferritin Lactate Dehydrogenase C-Reactive Protein NT-Pro-B Natriuret Pep Total Protein Albumin Triglycerides Arterial Blood Glucose 306 H Ur Specific [place] Coronavirus (PCR) 03/13/21 03/13/21 03/13/21 05:22 05:44 05:44 WBC 13.9 H RBC Hgb Hct MCV MCHC RDW Plt Count Lymph % (Auto) [place] % (Auto) Lymph # (Auto) [place] # (Auto) Seg Neutrophils % Seg Neuts % (Manual) Lymphocytes % (Manual) Monocytes % (Manual) Nucleated RBC % Seg Neutrophils # Seg Neutrophils # Man Lymphocytes # (Manual) Monocytes # (Manual) PT INR APTT D-Dimer 3567.97 H Heparin Anti-Xa Level ABG pH POC ABG pCO2 POC ABG pO2 ABG pO2 ABG HCO3 ABG O2 Saturation ABG Base Excess ABG Hemoglobin ABG Oxyhemoglobin ABG Sodium ABG Potassium ABG Glucose Oxyhemoglobin Sodium Potassium Chloride Carbon Dioxide BUN Creatinine Glucose POC Glucose 316 H Lactic Acid Calcium Phosphorus Magnesium Ferritin Lactate Dehydrogenase C-Reactive Protein NT-Pro-B Natriuret Pep Total Protein Albumin Triglycerides Arterial Blood Glucose Ur Specific [place] Coronavirus (PCR) 03/13/21 03/13/21 03/13/21 05:44 05:44 11:15 WBC RBC Hgb Hct MCV MCHC RDW Plt Count Lymph % (Auto) [place] % (Auto) Lymph # (Auto) [place] # (Auto) Seg Neutrophils % Seg Neuts % (Manual) Lymphocytes % (Manual) Monocytes % (Manual) Nucleated RBC % Seg Neutrophils # Seg Neutrophils # Man Lymphocytes # (Manual) Monocytes # (Manual) PT INR APTT D-Dimer Heparin Anti-Xa Level ABG pH 7.310 L POC ABG pCO2 POC ABG pO2 ABG pO2 52.3 L ABG HCO3 34.1 H ABG O2 Saturation 86.8 L ABG Base Excess 5.5 H ABG Hemoglobin 13.8 L ABG Oxyhemoglobin ABG Sodium ABG Potassium ABG Glucose Oxyhemoglobin 85.1 L Sodium Potassium Chloride Carbon Dioxide BUN Creatinine Glucose POC Glucose Lactic Acid Calcium Phosphorus Magnesium Ferritin 858.7 H Lactate Dehydrogenase 348 H C-Reactive Protein 2.80 H NT-Pro-B Natriuret Pep Total Protein Albumin Triglycerides Arterial Blood Glucose Ur Specific [place] Coronavirus (PCR) 03/13/21 03/13/21 03/13/21 11:21 15:47 19:23 WBC RBC Hgb Hct MCV MCHC RDW Plt Count Lymph % (Auto) [place] % (Auto) Lymph # (Auto) [place] # (Auto) Seg Neutrophils % Seg Neuts % (Manual) Lymphocytes % (Manual) Monocytes % (Manual) Nucleated RBC % Seg Neutrophils # Seg Neutrophils # Man Lymphocytes # (Manual) Monocytes # (Manual) PT INR APTT D-Dimer Heparin Anti-Xa Level ABG pH POC ABG pCO2 POC ABG pO2 ABG pO2 ABG HCO3 ABG O2 Saturation ABG Base Excess ABG Hemoglobin ABG Oxyhemoglobin ABG Sodium ABG Potassium ABG Glucose Oxyhemoglobin Sodium 136 L Potassium 5.9 H Chloride Carbon Dioxide BUN 50 H Creatinine Glucose 397 H POC Glucose 322 H 317 H Lactic Acid Calcium Phosphorus Magnesium Ferritin Lactate Dehydrogenase C-Reactive Protein NT-Pro-B Natriuret Pep Total Protein Albumin Triglycerides Arterial Blood Glucose Ur Specific [place] Coronavirus (PCR) 03/13/21 03/14/21 03/14/21 23:46 05:32 05:50 WBC 11.6 H RBC Hgb Hct MCV MCHC RDW Plt Count Lymph % (Auto) [place] % (Auto) Lymph # (Auto) [place] # (Auto) Seg Neutrophils % Seg Neuts % (Manual) Lymphocytes % (Manual) Monocytes % (Manual) Nucleated RBC % Seg Neutrophils # Seg Neutrophils # Man Lymphocytes # (Manual) Monocytes # (Manual) PT INR APTT D-Dimer Heparin Anti-Xa Level ABG pH POC ABG pCO2 POC ABG pO2 ABG pO2 ABG HCO3 ABG O2 Saturation ABG Base Excess ABG Hemoglobin ABG Oxyhemoglobin ABG Sodium ABG Potassium ABG Glucose Oxyhemoglobin Sodium Potassium Chloride Carbon Dioxide BUN Creatinine Glucose POC Glucose 332 H 316 H Lactic Acid Calcium Phosphorus Magnesium Ferritin Lactate Dehydrogenase C-Reactive Protein NT-Pro-B Natriuret Pep Total Protein Albumin Triglycerides Arterial Blood Glucose Ur Specific [place] Coronavirus (PCR) 03/14/21 03/14/21 03/14/21 05:50 11:33 16:53 WBC RBC Hgb Hct MCV MCHC RDW Plt Count Lymph % (Auto) [place] % (Auto) Lymph # (Auto) [place] # (Auto) Seg Neutrophils % Seg Neuts % (Manual) Lymphocytes % (Manual) Monocytes % (Manual) Nucleated RBC % Seg Neutrophils # Seg Neutrophils # Man Lymphocytes # (Manual) Monocytes # (Manual) PT INR APTT D-Dimer Heparin Anti-Xa Level ABG pH POC ABG pCO2 POC ABG pO2 ABG pO2 ABG HCO3 ABG O2 Saturation ABG Base Excess ABG Hemoglobin ABG Oxyhemoglobin ABG Sodium ABG Potassium ABG Glucose Oxyhemoglobin Sodium Potassium 5.9 H Chloride Carbon Dioxide 31 H BUN 48 H Creatinine Glucose 380 H POC Glucose 315 H 235 H Lactic Acid Calcium Phosphorus Magnesium 3.40 H Ferritin Lactate Dehydrogenase C-Reactive Protein NT-Pro-B Natriuret Pep Total Protein Albumin Triglycerides Arterial Blood Glucose Ur Specific [place] Coronavirus (PCR) 03/14/21 03/14/21 03/15/21 18:34 23:27 01:22 WBC RBC Hgb Hct 46.3 H MCV MCHC RDW Plt Count Lymph % (Auto) [place] % (Auto) Lymph # (Auto) [place] # (Auto) Seg Neutrophils % Seg Neuts % (Manual) Lymphocytes % (Manual) Monocytes % (Manual) Nucleated RBC % Seg Neutrophils # Seg Neutrophils # Man Lymphocytes # (Manual) Monocytes # (Manual) PT INR APTT D-Dimer Heparin Anti-Xa Level ABG pH POC ABG pCO2 POC ABG pO2 ABG pO2 ABG HCO3 ABG O2 Saturation ABG Base Excess ABG Hemoglobin ABG Oxyhemoglobin ABG Sodium ABG Potassium ABG Glucose Oxyhemoglobin Sodium 146 H Potassium Chloride Carbon Dioxide 34 H BUN 49 H Creatinine Glucose 285 H POC Glucose 203 H Lactic Acid Calcium Phosphorus Magnesium Ferritin Lactate Dehydrogenase C-Reactive Protein NT-Pro-B Natriuret Pep Total Protein Albumin Triglycerides Arterial Blood Glucose Ur Specific [place] Coronavirus (PCR) 03/15/21 03/15/21 03/15/21 04:00 06:06 06:06 WBC RBC Hgb Hct MCV MCHC RDW Plt Count Lymph % (Auto) [place] % (Auto) Lymph # (Auto) [place] # (Auto) Seg Neutrophils % Seg Neuts % (Manual) Lymphocytes % (Manual) Monocytes % (Manual) Nucleated RBC % Seg Neutrophils # Seg Neutrophils # Man Lymphocytes # (Manual) Monocytes # (Manual) PT INR APTT D-Dimer 1781.79 H Heparin Anti-Xa Level ABG pH POC ABG pCO2 POC ABG pO2 ABG pO2 ABG HCO3 ABG O2 Saturation ABG Base Excess ABG Hemoglobin ABG Oxyhemoglobin ABG Sodium ABG Potassium ABG Glucose Oxyhemoglobin Sodium 148 H Potassium 5.7 H D Chloride 108.0 H Carbon Dioxide 31 H BUN 46 H Creatinine Glucose 139 H POC Glucose Lactic Acid Calcium Phosphorus 4.80 H D Magnesium 3.00 H Ferritin 976.4 H Lactate Dehydrogenase 630 H C-Reactive Protein NT-Pro-B Natriuret Pep Total Protein Albumin Triglycerides Arterial Blood Glucose Ur Specific [place] Coronavirus (PCR) 03/15/21 03/15/21 03/15/21 11:56 14:05 17:09 WBC RBC Hgb Hct MCV MCHC RDW Plt Count Lymph % (Auto) [place] % (Auto) Lymph # (Auto) [place] # (Auto) Seg Neutrophils % Seg Neuts % (Manual) Lymphocytes % (Manual) Monocytes % (Manual) Nucleated RBC % Seg Neutrophils # Seg Neutrophils # Man Lymphocytes # (Manual) Monocytes # (Manual) PT INR APTT D-Dimer Heparin Anti-Xa Level ABG pH POC ABG pCO2 POC ABG pO2 ABG pO2 52.1 L ABG HCO3 36.6 H ABG O2 Saturation 87.6 L ABG Base Excess 9.5 H ABG Hemoglobin ABG Oxyhemoglobin ABG Sodium ABG Potassium ABG Glucose Oxyhemoglobin 85.7 L Sodium Potassium Chloride Carbon Dioxide BUN Creatinine Glucose POC Glucose 219 H 263 H Lactic Acid Calcium Phosphorus Magnesium Ferritin Lactate Dehydrogenase C-Reactive Protein NT-Pro-B Natriuret Pep Total Protein Albumin Triglycerides Arterial Blood Glucose Ur Specific [place] Coronavirus (PCR) 03/16/21 03/16/21 03/16/21 00:32 04:11 04:11 WBC 11.9 H RBC Hgb Hct MCV MCHC 30 L RDW Plt Count Lymph % (Auto) [place] % (Auto) Lymph # (Auto) [place] # (Auto) Seg Neutrophils % Seg Neuts % (Manual) Lymphocytes % (Manual) Monocytes % (Manual) Nucleated RBC % Seg Neutrophils # Seg Neutrophils # Man Lymphocytes # (Manual) Monocytes # (Manual) PT INR APTT D-Dimer Heparin Anti-Xa Level ABG pH POC ABG pCO2 POC ABG pO2 ABG pO2 ABG HCO3 ABG O2 Saturation ABG Base Excess ABG Hemoglobin ABG Oxyhemoglobin ABG Sodium ABG Potassium ABG Glucose Oxyhemoglobin Sodium 151 H Potassium Chloride Carbon Dioxide 35 H BUN 48 H Creatinine Glucose 152 H POC Glucose 165 H Lactic Acid Calcium Phosphorus Magnesium Ferritin Lactate Dehydrogenase C-Reactive Protein NT-Pro-B Natriuret Pep Total Protein Albumin Triglycerides Arterial Blood Glucose Ur Specific [place] Coronavirus (PCR) 03/16/21 03/16/21 03/16/21 04:11 05:26 11:35 WBC RBC Hgb Hct MCV MCHC RDW Plt Count Lymph % (Auto) [place] % (Auto) Lymph # (Auto) [place] # (Auto) Seg Neutrophils % Seg Neuts % (Manual) Lymphocytes % (Manual) Monocytes % (Manual) Nucleated RBC % Seg Neutrophils # Seg Neutrophils # Man Lymphocytes # (Manual) Monocytes # (Manual) PT INR APTT D-Dimer Heparin Anti-Xa Level ABG pH POC ABG pCO2 POC ABG pO2 ABG pO2 ABG HCO3 ABG O2 Saturation ABG Base Excess ABG Hemoglobin ABG Oxyhemoglobin ABG Sodium ABG Potassium ABG Glucose Oxyhemoglobin Sodium Potassium Chloride Carbon Dioxide BUN Creatinine Glucose POC Glucose 162 H 187 H Lactic Acid Calcium Phosphorus Magnesium Ferritin Lactate Dehydrogenase C-Reactive Protein NT-Pro-B Natriuret Pep Total Protein Albumin Triglycerides 267 H Arterial Blood Glucose Ur Specific [place] Coronavirus (PCR) 03/16/21 03/16/21 03/16/21 17:29 22:25 23:22 WBC RBC Hgb Hct MCV MCHC RDW Plt Count Lymph % (Auto) [place] % (Auto) Lymph # (Auto) [place] # (Auto) Seg Neutrophils % Seg Neuts % (Manual) Lymphocytes % (Manual) Monocytes % (Manual) Nucleated RBC % Seg Neutrophils # Seg Neutrophils # Man Lymphocytes # (Manual) Monocytes # (Manual) PT INR APTT D-Dimer Heparin Anti-Xa Level ABG pH POC ABG pCO2 POC ABG pO2 ABG pO2 ABG HCO3 ABG O2 Saturation ABG Base Excess ABG Hemoglobin ABG Oxyhemoglobin ABG Sodium ABG Potassium ABG Glucose Oxyhemoglobin Sodium Potassium Chloride Carbon Dioxide BUN Creatinine Glucose POC Glucose 237 H 165 H 189 H Lactic Acid Calcium Phosphorus Magnesium Ferritin Lactate Dehydrogenase C-Reactive Protein NT-Pro-B Natriuret Pep Total Protein Albumin Triglycerides Arterial Blood Glucose Ur Specific [place] Coronavirus (PCR) 03/17/21 03/17/21 03/17/21 04:40 04:40 04:40 WBC 14.1 H RBC Hgb Hct MCV MCHC RDW 15.3 H Plt Count Lymph % (Auto) 12.6 L [place] % (Auto) 11.3 H Lymph # (Auto) [place] # (Auto) 1.6 H Seg Neutrophils % 74.9 H Seg Neuts % (Manual) Lymphocytes % (Manual) Monocytes % (Manual) Nucleated RBC % Seg Neutrophils # 10.5 H Seg Neutrophils # Man Lymphocytes # (Manual) Monocytes # (Manual) PT INR APTT D-Dimer 1359.12 H Heparin Anti-Xa Level ABG pH POC ABG pCO2 POC ABG pO2 ABG pO2 ABG HCO3 ABG O2 Saturation ABG Base Excess ABG Hemoglobin ABG Oxyhemoglobin ABG Sodium ABG Potassium ABG Glucose Oxyhemoglobin Sodium 148 H Potassium Chloride 107.5 H Carbon Dioxide 33 H BUN 42 H Creatinine Glucose 183 H POC Glucose Lactic Acid Calcium Phosphorus Magnesium 2.70 H Ferritin Lactate Dehydrogenase C-Reactive Protein NT-Pro-B Natriuret Pep Total Protein Albumin Triglycerides Arterial Blood Glucose Ur Specific [place] Coronavirus (PCR) 03/17/21 03/17/21 03/17/21 05:53 11:05 11:51 WBC RBC Hgb Hct MCV MCHC RDW Plt Count Lymph % (Auto) [place] % (Auto) Lymph # (Auto) [place] # (Auto) Seg Neutrophils % Seg Neuts % (Manual) Lymphocytes % (Manual) Monocytes % (Manual) Nucleated RBC % Seg Neutrophils # Seg Neutrophils # Man Lymphocytes # (Manual) Monocytes # (Manual) PT INR APTT D-Dimer Heparin Anti-Xa Level ABG pH POC ABG pCO2 POC ABG pO2 ABG pO2 ABG HCO3 35.7 H ABG O2 Saturation ABG Base Excess 8.7 H ABG Hemoglobin ABG Oxyhemoglobin ABG Sodium ABG Potassium ABG Glucose Oxyhemoglobin 94.2 L Sodium Potassium Chloride Carbon Dioxide BUN Creatinine Glucose POC Glucose 176 H 197 H Lactic Acid Calcium Phosphorus Magnesium Ferritin Lactate Dehydrogenase C-Reactive Protein NT-Pro-B Natriuret Pep Total Protein Albumin Triglycerides Arterial Blood Glucose Ur Specific [place] Coronavirus (PCR) 03/17/21 03/17/21 03/17/21 16:54 21:10 23:33 WBC RBC Hgb Hct MCV MCHC RDW Plt Count Lymph % (Auto) [place] % (Auto) Lymph # (Auto) [place] # (Auto) Seg Neutrophils % Seg Neuts % (Manual) Lymphocytes % (Manual) Monocytes % (Manual) Nucleated RBC % Seg Neutrophils # Seg Neutrophils # Man Lymphocytes # (Manual) Monocytes # (Manual) PT INR APTT D-Dimer Heparin Anti-Xa Level ABG pH POC ABG pCO2 POC ABG pO2 ABG pO2 ABG HCO3 ABG O2 Saturation ABG Base Excess ABG Hemoglobin ABG Oxyhemoglobin ABG Sodium ABG Potassium ABG Glucose Oxyhemoglobin Sodium Potassium Chloride Carbon Dioxide BUN Creatinine Glucose POC Glucose 135 H 160 H 138 H Lactic Acid Calcium Phosphorus Magnesium Ferritin Lactate Dehydrogenase C-Reactive Protein NT-Pro-B Natriuret Pep Total Protein Albumin Triglycerides Arterial Blood Glucose Ur Specific [place] Coronavirus (PCR) 03/18/21 03/18/21 03/18/21 04:18 04:50 05:43 WBC RBC Hgb Hct MCV MCHC RDW Plt Count Lymph % (Auto) [place] % (Auto) Lymph # (Auto) [place] # (Auto) Seg Neutrophils % Seg Neuts % (Manual) Lymphocytes % (Manual) Monocytes % (Manual) Nucleated RBC % Seg Neutrophils # Seg Neutrophils # Man Lymphocytes # (Manual) Monocytes # (Manual) PT INR APTT D-Dimer Heparin Anti-Xa Level ABG pH POC ABG pCO2 POC ABG pO2 ABG pO2 59.8 L ABG HCO3 36.5 H ABG O2 Saturation 90.7 L ABG Base Excess 9.4 H ABG Hemoglobin 12.0 L ABG Oxyhemoglobin ABG Sodium ABG Potassium ABG Glucose Oxyhemoglobin 88.9 L Sodium Potassium Chloride 107.2 H Carbon Dioxide 34 H BUN 38 H Creatinine 0.7 L Glucose 136 H POC Glucose 128 H Lactic Acid Calcium Phosphorus Magnesium Ferritin Lactate Dehydrogenase C-Reactive Protein NT-Pro-B Natriuret Pep Total Protein Albumin Triglycerides Arterial Blood Glucose Ur Specific [place] Coronavirus (PCR) 03/18/21 03/18/21 03/18/21 11:20 17:35 23:35 WBC RBC Hgb Hct MCV MCHC RDW Plt Count Lymph % (Auto) [place] % (Auto) Lymph # (Auto) [place] # (Auto) Seg Neutrophils % Seg Neuts % (Manual) Lymphocytes % (Manual) Monocytes % (Manual) Nucleated RBC % Seg Neutrophils # Seg Neutrophils # Man Lymphocytes # (Manual) Monocytes # (Manual) PT INR APTT D-Dimer Heparin Anti-Xa Level ABG pH POC ABG pCO2 POC ABG pO2 ABG pO2 70.7 L ABG HCO3 33.6 H ABG O2 Saturation ABG Base Excess 8.0 H ABG Hemoglobin ABG Oxyhemoglobin ABG Sodium ABG Potassium ABG Glucose Oxyhemoglobin 93.7 L Sodium Potassium Chloride Carbon Dioxide BUN Creatinine Glucose POC Glucose 189 H 144 H Lactic Acid Calcium Phosphorus Magnesium Ferritin Lactate Dehydrogenase C-Reactive Protein NT-Pro-B Natriuret Pep Total Protein Albumin Triglycerides Arterial Blood Glucose Ur Specific [place] Coronavirus (PCR) 03/19/21 03/19/21 03/19/21 02:35 04:20 04:20 WBC 14.0 H RBC Hgb Hct MCV MCHC RDW Plt Count Lymph % (Auto) [place] % (Auto) Lymph # (Auto) [place] # (Auto) Seg Neutrophils % Seg Neuts % (Manual) Lymphocytes % (Manual) Monocytes % (Manual) Nucleated RBC % Seg Neutrophils # Seg Neutrophils # Man Lymphocytes # (Manual) Monocytes # (Manual) PT INR APTT D-Dimer Heparin Anti-Xa Level ABG pH POC ABG pCO2 POC ABG pO2 ABG pO2 ABG HCO3 32.0 H ABG O2 Saturation ABG Base Excess 5.2 H ABG Hemoglobin 13.6 L ABG Oxyhemoglobin ABG Sodium ABG Potassium ABG Glucose Oxyhemoglobin 94.6 L Sodium 146 H Potassium Chloride 109.3 H Carbon Dioxide BUN 36 H Creatinine Glucose 203 H POC Glucose Lactic Acid Calcium Phosphorus Magnesium Ferritin Lactate Dehydrogenase C-Reactive Protein NT-Pro-B Natriuret Pep Total Protein Albumin Triglycerides 254 H Arterial Blood Glucose Ur Specific [place] Coronavirus (PCR) 03/19/21 03/19/21 03/19/21 05:45 11:36 23:51 WBC RBC Hgb Hct MCV MCHC RDW Plt Count Lymph % (Auto) [place] % (Auto) Lymph # (Auto) [place] # (Auto) Seg Neutrophils % Seg Neuts % (Manual) Lymphocytes % (Manual) Monocytes % (Manual) Nucleated RBC % Seg Neutrophils # Seg Neutrophils # Man Lymphocytes # (Manual) Monocytes # (Manual) PT INR APTT D-Dimer Heparin Anti-Xa Level ABG pH POC ABG pCO2 POC ABG pO2 ABG pO2 ABG HCO3 ABG O2 Saturation ABG Base Excess ABG Hemoglobin ABG Oxyhemoglobin ABG Sodium ABG Potassium ABG Glucose Oxyhemoglobin Sodium Potassium Chloride Carbon Dioxide BUN Creatinine Glucose POC Glucose 164 H 172 H 140 H Lactic Acid Calcium Phosphorus Magnesium Ferritin Lactate Dehydrogenase C-Reactive Protein NT-Pro-B Natriuret Pep Total Protein Albumin Triglycerides Arterial Blood Glucose Ur Specific [place] Coronavirus (PCR) 03/20/21 03/20/21 03/20/21 03:29 04:45 04:45 WBC RBC Hgb Hct MCV 95 H MCHC RDW 15.7 H Plt Count Lymph % (Auto) [place] % (Auto) Lymph # (Auto) [place] # (Auto) Seg Neutrophils % Seg Neuts % (Manual) Lymphocytes % (Manual) Monocytes % (Manual) Nucleated RBC % Seg Neutrophils # Seg Neutrophils # Man Lymphocytes # (Manual) Monocytes # (Manual) PT INR APTT D-Dimer Heparin Anti-Xa Level ABG pH 7.349 L POC ABG pCO2 POC ABG pO2 ABG pO2 ABG HCO3 33.7 H ABG O2 Saturation ABG Base Excess 6.4 H ABG Hemoglobin 11.8 L ABG Oxyhemoglobin ABG Sodium ABG Potassium ABG Glucose Oxyhemoglobin 93.9 L Sodium 146 H Potassium 5.5 H Chloride 111.1 H Carbon Dioxide BUN 34 H Creatinine 0.7 L Glucose 145 H POC Glucose Lactic Acid Calcium Phosphorus Magnesium 2.50 H Ferritin Lactate Dehydrogenase C-Reactive Protein NT-Pro-B Natriuret Pep Total Protein Albumin Triglycerides Arterial Blood Glucose Ur Specific [place] Coronavirus (PCR) 03/20/21 03/20/21 03/20/21 05:41 09:08 11:54 WBC RBC Hgb Hct MCV MCHC RDW Plt Count Lymph % (Auto) [place] % (Auto) Lymph # (Auto) [place] # (Auto) Seg Neutrophils % Seg Neuts % (Manual) Lymphocytes % (Manual) Monocytes % (Manual) Nucleated RBC % Seg Neutrophils # Seg Neutrophils # Man Lymphocytes # (Manual) Monocytes # (Manual) PT INR APTT D-Dimer Heparin Anti-Xa Level ABG pH POC ABG pCO2 POC ABG pO2 ABG pO2 ABG HCO3 ABG O2 Saturation ABG Base Excess ABG Hemoglobin ABG Oxyhemoglobin ABG Sodium ABG Potassium ABG Glucose Oxyhemoglobin Sodium Potassium Chloride Carbon Dioxide BUN Creatinine Glucose POC Glucose 108 H 132 H 162 H Lactic Acid Calcium Phosphorus Magnesium Ferritin Lactate Dehydrogenase C-Reactive Protein NT-Pro-B Natriuret Pep Total Protein Albumin Triglycerides Arterial Blood Glucose Ur Specific [place] Coronavirus (PCR) 03/20/21 03/21/21 03/21/21 17:28 00:31 04:44 WBC RBC Hgb Hct MCV MCHC RDW Plt Count Lymph % (Auto) [place] % (Auto) Lymph # (Auto) [place] # (Auto) Seg Neutrophils % Seg Neuts % (Manual) Lymphocytes % (Manual) Monocytes % (Manual) Nucleated RBC % Seg Neutrophils # Seg Neutrophils # Man Lymphocytes # (Manual) Monocytes # (Manual) PT INR APTT D-Dimer Heparin Anti-Xa Level ABG pH POC ABG pCO2 POC ABG pO2 ABG pO2 ABG HCO3 ABG O2 Saturation ABG Base Excess ABG Hemoglobin ABG Oxyhemoglobin ABG Sodium ABG Potassium ABG Glucose Oxyhemoglobin Sodium Potassium Chloride 108.3 H Carbon Dioxide BUN 30 H Creatinine 0.7 L Glucose POC Glucose 160 H 122 H Lactic Acid Calcium Phosphorus Magnesium Ferritin Lactate Dehydrogenase C-Reactive Protein NT-Pro-B Natriuret Pep Total Protein Albumin Triglycerides Arterial Blood Glucose Ur Specific [place] Coronavirus (PCR) 03/21/21 03/21/21 03/21/21 09:18 10:09 13:20 WBC RBC Hgb Hct MCV MCHC RDW Plt Count Lymph % (Auto) [place] % (Auto) Lymph # (Auto) [place] # (Auto) Seg Neutrophils % Seg Neuts % (Manual) Lymphocytes % (Manual) Monocytes % (Manual) Nucleated RBC % Seg Neutrophils # Seg Neutrophils # Man Lymphocytes # (Manual) Monocytes # (Manual) PT INR APTT D-Dimer Heparin Anti-Xa Level ABG pH POC ABG pCO2 POC ABG pO2 ABG pO2 60.7 L ABG HCO3 30.6 H ABG O2 Saturation 93.6 L ABG Base Excess 5.3 H ABG Hemoglobin ABG Oxyhemoglobin ABG Sodium ABG Potassium ABG Glucose Oxyhemoglobin 91.7 L Sodium Potassium Chloride Carbon Dioxide BUN Creatinine Glucose POC Glucose 169 H 122 H Lactic Acid Calcium Phosphorus Magnesium Ferritin Lactate Dehydrogenase C-Reactive Protein NT-Pro-B Natriuret Pep Total Protein Albumin Triglycerides Arterial Blood Glucose Ur Specific [place] Coronavirus (PCR) 03/21/21 03/21/21 03/21/21 17:25 22:41 23:52 WBC RBC Hgb Hct MCV MCHC RDW Plt Count Lymph % (Auto) [place] % (Auto) Lymph # (Auto) [place] # (Auto) Seg Neutrophils % Seg Neuts % (Manual) Lymphocytes % (Manual) Monocytes % (Manual) Nucleated RBC % Seg Neutrophils # Seg Neutrophils # Man Lymphocytes # (Manual) Monocytes # (Manual) PT INR APTT D-Dimer Heparin Anti-Xa Level ABG pH POC ABG pCO2 POC ABG pO2 ABG pO2 ABG HCO3 ABG O2 Saturation ABG Base Excess ABG Hemoglobin ABG Oxyhemoglobin ABG Sodium ABG Potassium ABG Glucose Oxyhemoglobin Sodium Potassium Chloride Carbon Dioxide BUN Creatinine Glucose POC Glucose 121 H 139 H 140 H Lactic Acid Calcium Phosphorus Magnesium Ferritin Lactate Dehydrogenase C-Reactive Protein NT-Pro-B Natriuret Pep Total Protein Albumin Triglycerides Arterial Blood Glucose Ur Specific [place] Coronavirus (PCR) 03/22/21 03/22/21 03/22/21 05:58 07:26 07:26 WBC RBC Hgb Hct MCV MCHC 31 L RDW 16.1 H Plt Count Lymph % (Auto) [place] % (Auto) Lymph # (Auto) [place] # (Auto) Seg Neutrophils % Seg Neuts % (Manual) Lymphocytes % (Manual) Monocytes % (Manual) Nucleated RBC % Seg Neutrophils # Seg Neutrophils # Man Lymphocytes # (Manual) Monocytes # (Manual) PT INR APTT D-Dimer Heparin Anti-Xa Level ABG pH POC ABG pCO2 POC ABG pO2 ABG pO2 ABG HCO3 ABG O2 Saturation ABG Base Excess ABG Hemoglobin ABG Oxyhemoglobin ABG Sodium ABG Potassium ABG Glucose Oxyhemoglobin Sodium Potassium Chloride 108.5 H Carbon Dioxide BUN 44 H Creatinine Glucose 120 H POC Glucose 131 H Lactic Acid Calcium Phosphorus 5.80 H Magnesium 2.80 H Ferritin Lactate Dehydrogenase C-Reactive Protein NT-Pro-B Natriuret Pep Total Protein Albumin Triglycerides 305 H Arterial Blood Glucose Ur Specific [place] Coronavirus (PCR) 03/22/21 03/22/21 03/22/21 09:38 11:15 16:01 WBC RBC Hgb Hct MCV MCHC RDW Plt Count Lymph % (Auto) [place] % (Auto) Lymph # (Auto) [place] # (Auto) Seg Neutrophils % Seg Neuts % (Manual) Lymphocytes % (Manual) Monocytes % (Manual) Nucleated RBC % Seg Neutrophils # Seg Neutrophils # Man Lymphocytes # (Manual) Monocytes # (Manual) PT INR APTT D-Dimer Heparin Anti-Xa Level ABG pH POC ABG pCO2 POC ABG pO2 ABG pO2 70.0 L ABG HCO3 30.0 H ABG O2 Saturation 94.6 L ABG Base Excess 3.6 H ABG Hemoglobin 13.5 L ABG Oxyhemoglobin ABG Sodium ABG Potassium ABG Glucose Oxyhemoglobin 92.5 L Sodium Potassium Chloride Carbon Dioxide BUN Creatinine Glucose POC Glucose 186 H 148 H Lactic Acid Calcium Phosphorus Magnesium Ferritin Lactate Dehydrogenase C-Reactive Protein NT-Pro-B Natriuret Pep Total Protein Albumin Triglycerides Arterial Blood Glucose Ur Specific [place] Coronavirus (PCR) 03/22/21 03/22/21 03/23/21 21:13 23:48 07:04 WBC 11.7 H RBC Hgb Hct MCV 95 H MCHC RDW 16.1 H Plt Count Lymph % (Auto) [place] % (Auto) Lymph # (Auto) [place] # (Auto) Seg Neutrophils % Seg Neuts % (Manual) Lymphocytes % (Manual) Monocytes % (Manual) Nucleated RBC % Seg Neutrophils # Seg Neutrophils # Man Lymphocytes # (Manual) Monocytes # (Manual) PT INR APTT D-Dimer Heparin Anti-Xa Level ABG pH POC ABG pCO2 POC ABG pO2 ABG pO2 ABG HCO3 ABG O2 Saturation ABG Base Excess ABG Hemoglobin ABG Oxyhemoglobin ABG Sodium ABG Potassium ABG Glucose Oxyhemoglobin Sodium Potassium Chloride Carbon Dioxide BUN Creatinine Glucose POC Glucose 121 H 114 H Lactic Acid Calcium Phosphorus Magnesium Ferritin Lactate Dehydrogenase C-Reactive Protein NT-Pro-B Natriuret Pep Total Protein Albumin Triglycerides Arterial Blood Glucose Ur Specific [place] Coronavirus (PCR) 03/23/21 03/23/21 03/23/21 07:04 08:35 11:19 WBC RBC Hgb Hct MCV MCHC RDW Plt Count Lymph % (Auto) [place] % (Auto) Lymph # (Auto) [place] # (Auto) Seg Neutrophils % Seg Neuts % (Manual) Lymphocytes % (Manual) Monocytes % (Manual) Nucleated RBC % Seg Neutrophils # Seg Neutrophils # Man Lymphocytes # (Manual) Monocytes # (Manual) PT INR APTT D-Dimer Heparin Anti-Xa Level ABG pH 7.345 L POC ABG pCO2 POC ABG pO2 ABG pO2 167.9 H ABG HCO3 32.2 H ABG O2 Saturation ABG Base Excess 4.8 H ABG Hemoglobin 13.4 L ABG Oxyhemoglobin ABG Sodium ABG Potassium ABG Glucose Oxyhemoglobin Sodium 148 H Potassium Chloride 111.3 H Carbon Dioxide 31 H BUN 31 H Creatinine Glucose 131 H POC Glucose 165 H Lactic Acid Calcium Phosphorus Magnesium 2.50 H Ferritin Lactate Dehydrogenase C-Reactive Protein NT-Pro-B Natriuret Pep Total Protein Albumin Triglycerides Arterial Blood Glucose Ur Specific [place] Coronavirus (PCR) 03/23/21 03/23/21 03/24/21 16:48 20:52 00:07 WBC RBC Hgb Hct MCV MCHC RDW Plt Count Lymph % (Auto) [place] % (Auto) Lymph # (Auto) [place] # (Auto) Seg Neutrophils % Seg Neuts % (Manual) Lymphocytes % (Manual) Monocytes % (Manual) Nucleated RBC % Seg Neutrophils # Seg Neutrophils # Man Lymphocytes # (Manual) Monocytes # (Manual) PT INR APTT D-Dimer Heparin Anti-Xa Level ABG pH POC ABG pCO2 POC ABG pO2 ABG pO2 ABG HCO3 ABG O2 Saturation ABG Base Excess ABG Hemoglobin ABG Oxyhemoglobin ABG Sodium ABG Potassium ABG Glucose Oxyhemoglobin Sodium Potassium Chloride Carbon Dioxide BUN Creatinine Glucose POC Glucose 160 H 127 H 147 H Lactic Acid Calcium Phosphorus Magnesium Ferritin Lactate Dehydrogenase C-Reactive Protein NT-Pro-B Natriuret Pep Total Protein Albumin Triglycerides Arterial Blood Glucose Ur Specific [place] Coronavirus (PCR) 03/24/21 03/24/21 03/24/21 04:34 04:34 05:20 WBC 13.3 H RBC Hgb Hct MCV MCHC 31 L RDW 16.1 H Plt Count Lymph % (Auto) [place] % (Auto) Lymph # (Auto) [place] # (Auto) Seg Neutrophils % Seg Neuts % (Manual) Lymphocytes % (Manual) Monocytes % (Manual) Nucleated RBC % Seg Neutrophils # Seg Neutrophils # Man Lymphocytes # (Manual) Monocytes # (Manual) PT INR APTT D-Dimer Heparin Anti-Xa Level ABG pH POC ABG pCO2 POC ABG pO2 ABG pO2 ABG HCO3 ABG O2 Saturation ABG Base Excess ABG Hemoglobin ABG Oxyhemoglobin ABG Sodium ABG Potassium ABG Glucose Oxyhemoglobin Sodium Potassium 5.2 H Chloride Carbon Dioxide BUN 28 H Creatinine 0.7 L Glucose 152 H POC Glucose 141 H Lactic Acid Calcium Phosphorus Magnesium Ferritin Lactate Dehydrogenase C-Reactive Protein NT-Pro-B Natriuret Pep Total Protein Albumin Triglycerides Arterial Blood Glucose Ur Specific [place] Coronavirus (PCR) 03/24/21 03/24/21 03/24/21 09:40 11:38 16:45 WBC RBC Hgb Hct MCV MCHC RDW Plt Count Lymph % (Auto) [place] % (Auto) Lymph # (Auto) [place] # (Auto) Seg Neutrophils % Seg Neuts % (Manual) Lymphocytes % (Manual) Monocytes % (Manual) Nucleated RBC % Seg Neutrophils # Seg Neutrophils # Man Lymphocytes # (Manual) Monocytes # (Manual) PT INR APTT D-Dimer Heparin Anti-Xa Level ABG pH POC ABG pCO2 POC ABG pO2 ABG pO2 ABG HCO3 ABG O2 Saturation ABG Base Excess ABG Hemoglobin ABG Oxyhemoglobin ABG Sodium ABG Potassium ABG Glucose Oxyhemoglobin Sodium Potassium Chloride Carbon Dioxide BUN Creatinine Glucose POC Glucose 126 H 136 H 118 H Lactic Acid Calcium Phosphorus Magnesium Ferritin Lactate Dehydrogenase C-Reactive Protein NT-Pro-B Natriuret Pep Total Protein Albumin Triglycerides Arterial Blood Glucose Ur Specific [place] Coronavirus (PCR) 03/24/21 03/24/21 03/25/21 21:03 23:49 04:32 WBC RBC Hgb Hct MCV MCHC RDW 16.1 H Plt Count 121 L Lymph % (Auto) [place] % (Auto) Lymph # (Auto) [place] # (Auto) Seg Neutrophils % Seg Neuts % (Manual) Lymphocytes % (Manual) Monocytes % (Manual) Nucleated RBC % Seg Neutrophils # Seg Neutrophils # Man Lymphocytes # (Manual) Monocytes # (Manual) PT INR APTT D-Dimer Heparin Anti-Xa Level ABG pH POC ABG pCO2 POC ABG pO2 ABG pO2 ABG HCO3 ABG O2 Saturation ABG Base Excess ABG Hemoglobin ABG Oxyhemoglobin ABG Sodium ABG Potassium ABG Glucose Oxyhemoglobin Sodium Potassium Chloride Carbon Dioxide BUN Creatinine Glucose POC Glucose 116 H 125 H Lactic Acid Calcium Phosphorus Magnesium Ferritin Lactate Dehydrogenase C-Reactive Protein NT-Pro-B Natriuret Pep Total Protein Albumin Triglycerides Arterial Blood Glucose Ur Specific [place] Coronavirus (PCR) 03/25/21 03/25/21 03/25/21 04:32 05:21 09:29 WBC RBC Hgb Hct MCV MCHC RDW Plt Count Lymph % (Auto) [place] % (Auto) Lymph # (Auto) [place] # (Auto) Seg Neutrophils % Seg Neuts % (Manual) Lymphocytes % (Manual) Monocytes % (Manual) Nucleated RBC % Seg Neutrophils # Seg Neutrophils # Man Lymphocytes # (Manual) Monocytes # (Manual) PT INR APTT D-Dimer Heparin Anti-Xa Level ABG pH POC ABG pCO2 POC ABG pO2 ABG pO2 ABG HCO3 ABG O2 Saturation ABG Base Excess ABG Hemoglobin ABG Oxyhemoglobin ABG Sodium ABG Potassium ABG Glucose Oxyhemoglobin Sodium 135 L D Potassium Chloride Carbon Dioxide BUN 25 H Creatinine 0.7 L Glucose 168 H POC Glucose 149 H 115 H Lactic Acid Calcium Phosphorus Magnesium Ferritin Lactate Dehydrogenase C-Reactive Protein NT-Pro-B Natriuret Pep Total Protein Albumin Triglycerides Arterial Blood Glucose Ur Specific [place] Coronavirus (PCR) 03/25/21 03/25/21 03/25/21 12:26 12:35 23:53 WBC RBC Hgb Hct MCV MCHC RDW Plt Count Lymph % (Auto) [place] % (Auto) Lymph # (Auto) [place] # (Auto) Seg Neutrophils % Seg Neuts % (Manual) Lymphocytes % (Manual) Monocytes % (Manual) Nucleated RBC % Seg Neutrophils # Seg Neutrophils # Man Lymphocytes # (Manual) Monocytes # (Manual) PT INR APTT D-Dimer Heparin Anti-Xa Level ABG pH POC ABG pCO2 POC ABG pO2 ABG pO2 100.5 H ABG HCO3 33.6 H ABG O2 Saturation ABG Base Excess 6.4 H ABG Hemoglobin 12.0 L ABG Oxyhemoglobin ABG Sodium ABG Potassium ABG Glucose Oxyhemoglobin Sodium Potassium Chloride Carbon Dioxide BUN Creatinine Glucose POC Glucose 108 H 137 H Lactic Acid Calcium Phosphorus Magnesium Ferritin Lactate Dehydrogenase C-Reactive Protein NT-Pro-B Natriuret Pep Total Protein Albumin Triglycerides Arterial Blood Glucose Ur Specific [place] Coronavirus (PCR) 03/26/21 03/26/21 03/26/21 05:14 07:09 07:09 WBC RBC Hgb Hct MCV MCHC RDW 16.5 H Plt Count 139 L Lymph % (Auto) [place] % (Auto) Lymph # (Auto) [place] # (Auto) Seg Neutrophils % Seg Neuts % (Manual) Lymphocytes % (Manual) Monocytes % (Manual) Nucleated RBC % Seg Neutrophils # Seg Neutrophils # Man Lymphocytes # (Manual) Monocytes # (Manual) PT INR APTT D-Dimer Heparin Anti-Xa Level ABG pH POC ABG pCO2 POC ABG pO2 ABG pO2 ABG HCO3 ABG O2 Saturation ABG Base Excess ABG Hemoglobin ABG Oxyhemoglobin ABG Sodium ABG Potassium ABG Glucose Oxyhemoglobin Sodium Potassium Chloride Carbon Dioxide BUN 22 H Creatinine 0.7 L Glucose 108 H POC Glucose 116 H Lactic Acid Calcium Phosphorus Magnesium Ferritin Lactate Dehydrogenase C-Reactive Protein NT-Pro-B Natriuret Pep Total Protein Albumin Triglycerides Arterial Blood Glucose Ur Specific [place] Coronavirus (PCR) 03/26/21 03/26/21 03/26/21 09:51 11:15 16:59 WBC RBC Hgb Hct MCV MCHC RDW Plt Count Lymph % (Auto) [place] % (Auto) Lymph # (Auto) [place] # (Auto) Seg Neutrophils % Seg Neuts % (Manual) Lymphocytes % (Manual) Monocytes % (Manual) Nucleated RBC % Seg Neutrophils # Seg Neutrophils # Man Lymphocytes # (Manual) Monocytes # (Manual) PT INR APTT D-Dimer Heparin Anti-Xa Level ABG pH POC ABG pCO2 POC ABG pO2 ABG pO2 ABG HCO3 ABG O2 Saturation ABG Base Excess ABG Hemoglobin ABG Oxyhemoglobin ABG Sodium ABG Potassium ABG Glucose Oxyhemoglobin Sodium Potassium Chloride Carbon Dioxide BUN Creatinine Glucose POC Glucose 107 H 119 H 174 H Lactic Acid Calcium Phosphorus Magnesium Ferritin Lactate Dehydrogenase C-Reactive Protein NT-Pro-B Natriuret Pep Total Protein Albumin Triglycerides Arterial Blood Glucose Ur Specific [place] Coronavirus (PCR) 03/26/21 03/27/21 03/27/21 22:18 07:08 10:28 WBC RBC Hgb Hct MCV 95 H MCHC RDW 16.2 H Plt Count 134 L Lymph % (Auto) [place] % (Auto) Lymph # (Auto) [place] # (Auto) Seg Neutrophils % Seg Neuts % (Manual) Lymphocytes % (Manual) Monocytes % (Manual) Nucleated RBC % Seg Neutrophils # Seg Neutrophils # Man Lymphocytes # (Manual) Monocytes # (Manual) PT INR APTT D-Dimer Heparin Anti-Xa Level ABG pH POC ABG pCO2 POC ABG pO2 ABG pO2 ABG HCO3 ABG O2 Saturation ABG Base Excess ABG Hemoglobin ABG Oxyhemoglobin ABG Sodium ABG Potassium ABG Glucose Oxyhemoglobin Sodium Potassium Chloride Carbon Dioxide BUN Creatinine Glucose POC Glucose 107 H 52 L Lactic Acid Calcium Phosphorus Magnesium Ferritin Lactate Dehydrogenase C-Reactive Protein NT-Pro-B Natriuret Pep Total Protein Albumin Triglycerides Arterial Blood Glucose Ur Specific [place] Coronavirus (PCR) 03/27/21 03/27/21 03/27/21 10:28 11:45 17:39 WBC RBC Hgb Hct MCV MCHC RDW Plt Count Lymph % (Auto) [place] % (Auto) Lymph # (Auto) [place] # (Auto) Seg Neutrophils % Seg Neuts % (Manual) Lymphocytes % (Manual) Monocytes % (Manual) Nucleated RBC % Seg Neutrophils # Seg Neutrophils # Man Lymphocytes # (Manual) Monocytes # (Manual) PT INR APTT D-Dimer Heparin Anti-Xa Level ABG pH POC ABG pCO2 POC ABG pO2 ABG pO2 ABG HCO3 ABG O2 Saturation ABG Base Excess ABG Hemoglobin ABG Oxyhemoglobin ABG Sodium ABG Potassium ABG Glucose Oxyhemoglobin Sodium 136 L Potassium Chloride Carbon Dioxide BUN Creatinine 0.7 L Glucose 150 H POC Glucose 121 H 165 H Lactic Acid Calcium Phosphorus Magnesium Ferritin Lactate Dehydrogenase C-Reactive Protein NT-Pro-B Natriuret Pep Total Protein Albumin Triglycerides Arterial Blood Glucose Ur Specific [place] Coronavirus (PCR) 03/28/21 03/28/21 03/28/21 07:14 11:42 18:22 WBC RBC Hgb Hct MCV MCHC RDW 16.4 H Plt Count Lymph % (Auto) [place] % (Auto) Lymph # (Auto) [place] # (Auto) Seg Neutrophils % Seg Neuts % (Manual) Lymphocytes % (Manual) Monocytes % (Manual) Nucleated RBC % Seg Neutrophils # Seg Neutrophils # Man Lymphocytes # (Manual) Monocytes # (Manual) PT INR APTT D-Dimer Heparin Anti-Xa Level ABG pH POC ABG pCO2 POC ABG pO2 ABG pO2 ABG HCO3 ABG O2 Saturation ABG Base Excess ABG Hemoglobin ABG Oxyhemoglobin ABG Sodium ABG Potassium ABG Glucose Oxyhemoglobin Sodium Potassium Chloride Carbon Dioxide BUN Creatinine Glucose POC Glucose 145 H 169 H Lactic Acid Calcium Phosphorus Magnesium Ferritin Lactate Dehydrogenase C-Reactive Protein NT-Pro-B Natriuret Pep Total Protein Albumin Triglycerides Arterial Blood Glucose Ur Specific [place] Coronavirus (PCR) 03/28/21 03/29/21 03/29/21 23:39 04:50 04:50 WBC RBC Hgb 11.0 L Hct 34.9 L MCV MCHC RDW 15.9 H Plt Count Lymph % (Auto) [place] % (Auto) Lymph # (Auto) [place] # (Auto) Seg Neutrophils % Seg Neuts % (Manual) Lymphocytes % (Manual) Monocytes % (Manual) Nucleated RBC % Seg Neutrophils # Seg Neutrophils # Man Lymphocytes # (Manual) Monocytes # (Manual) PT INR APTT D-Dimer Heparin Anti-Xa Level ABG pH POC ABG pCO2 POC ABG pO2 ABG pO2 ABG HCO3 ABG O2 Saturation ABG Base Excess ABG Hemoglobin ABG Oxyhemoglobin ABG Sodium ABG Potassium ABG Glucose Oxyhemoglobin Sodium Potassium Chloride Carbon Dioxide 34 H BUN Creatinine 0.6 L Glucose 152 H POC Glucose 139 H Lactic Acid Calcium Phosphorus Magnesium Ferritin Lactate Dehydrogenase C-Reactive Protein NT-Pro-B Natriuret Pep Total Protein Albumin Triglycerides Arterial Blood Glucose Ur Specific [place] Coronavirus (PCR) 03/29/21 03/29/21 03/29/21 05:25 11:34 18:02 WBC RBC Hgb Hct MCV MCHC RDW Plt Count Lymph % (Auto) [place] % (Auto) Lymph # (Auto) [place] # (Auto) Seg Neutrophils % Seg Neuts % (Manual) Lymphocytes % (Manual) Monocytes % (Manual) Nucleated RBC % Seg Neutrophils # Seg Neutrophils # Man Lymphocytes # (Manual) Monocytes # (Manual) PT INR APTT D-Dimer Heparin Anti-Xa Level ABG pH POC ABG pCO2 POC ABG pO2 ABG pO2 ABG HCO3 ABG O2 Saturation ABG Base Excess ABG Hemoglobin ABG Oxyhemoglobin ABG Sodium ABG Potassium ABG Glucose Oxyhemoglobin Sodium Potassium Chloride Carbon Dioxide BUN Creatinine Glucose POC Glucose 127 H 169 H 173 H Lactic Acid Calcium Phosphorus Magnesium Ferritin Lactate Dehydrogenase C-Reactive Protein NT-Pro-B Natriuret Pep Total Protein Albumin Triglycerides Arterial Blood Glucose Ur Specific [place] Coronavirus (PCR) 03/29/21 03/30/21 03/30/21 21:42 00:01 05:36 WBC RBC Hgb Hct MCV MCHC RDW 16.7 H Plt Count Lymph % (Auto) [place] % (Auto) Lymph # (Auto) [place] # (Auto) Seg Neutrophils % Seg Neuts % (Manual) Lymphocytes % (Manual) Monocytes % (Manual) Nucleated RBC % Seg Neutrophils # Seg Neutrophils # Man Lymphocytes # (Manual) Monocytes # (Manual) PT INR APTT D-Dimer Heparin Anti-Xa Level ABG pH POC ABG pCO2 POC ABG pO2 ABG pO2 ABG HCO3 ABG O2 Saturation ABG Base Excess ABG Hemoglobin ABG Oxyhemoglobin ABG Sodium ABG Potassium ABG Glucose Oxyhemoglobin Sodium Potassium Chloride Carbon Dioxide BUN Creatinine Glucose POC Glucose 184 H 161 H Lactic Acid Calcium Phosphorus Magnesium Ferritin Lactate Dehydrogenase C-Reactive Protein NT-Pro-B Natriuret Pep Total Protein Albumin Triglycerides Arterial Blood Glucose Ur Specific [place] Coronavirus (PCR) 03/30/21 03/30/21 03/30/21 05:36 06:03 11:32 WBC RBC Hgb Hct MCV MCHC RDW Plt Count Lymph % (Auto) [place] % (Auto) Lymph # (Auto) [place] # (Auto) Seg Neutrophils % Seg Neuts % (Manual) Lymphocytes % (Manual) Monocytes % (Manual) Nucleated RBC % Seg Neutrophils # Seg Neutrophils # Man Lymphocytes # (Manual) Monocytes # (Manual) PT INR APTT D-Dimer Heparin Anti-Xa Level ABG pH POC ABG pCO2 POC ABG pO2 ABG pO2 ABG HCO3 ABG O2 Saturation ABG Base Excess ABG Hemoglobin ABG Oxyhemoglobin ABG Sodium ABG Potassium ABG Glucose Oxyhemoglobin Sodium Potassium Chloride Carbon Dioxide BUN Creatinine 0.5 L Glucose 127 H POC Glucose 130 H 183 H Lactic Acid Calcium Phosphorus Magnesium Ferritin Lactate Dehydrogenase C-Reactive Protein NT-Pro-B Natriuret Pep Total Protein Albumin Triglycerides Arterial Blood Glucose Ur Specific [place] Coronavirus (PCR) 03/30/21 03/30/21 03/30/21 15:00 16:23 21:07 WBC RBC Hgb Hct MCV MCHC RDW Plt Count Lymph % (Auto) [place] % (Auto) Lymph # (Auto) [place] # (Auto) Seg Neutrophils % Seg Neuts % (Manual) Lymphocytes % (Manual) Monocytes % (Manual) Nucleated RBC % Seg Neutrophils # Seg Neutrophils # Man Lymphocytes # (Manual) Monocytes # (Manual) PT INR APTT D-Dimer Heparin Anti-Xa Level ABG pH POC ABG pCO2 POC ABG pO2 ABG pO2 67.2 L ABG HCO3 34.9 H ABG O2 Saturation ABG Base Excess 9.1 H ABG Hemoglobin 11.6 L ABG Oxyhemoglobin ABG Sodium ABG Potassium ABG Glucose Oxyhemoglobin 93.0 L Sodium Potassium Chloride Carbon Dioxide BUN Creatinine Glucose POC Glucose 162 H 146 H Lactic Acid Calcium Phosphorus Magnesium Ferritin Lactate Dehydrogenase C-Reactive Protein NT-Pro-B Natriuret Pep Total Protein Albumin Triglycerides Arterial Blood Glucose Ur Specific [place] Coronavirus (PCR) 03/30/21 03/31/21 03/31/21 23:23 05:44 11:19 WBC RBC Hgb Hct MCV MCHC RDW Plt Count Lymph % (Auto) [place] % (Auto) Lymph # (Auto) [place] # (Auto) Seg Neutrophils % Seg Neuts % (Manual) Lymphocytes % (Manual) Monocytes % (Manual) Nucleated RBC % Seg Neutrophils # Seg Neutrophils # Man Lymphocytes # (Manual) Monocytes # (Manual) PT INR APTT D-Dimer Heparin Anti-Xa Level ABG pH POC ABG pCO2 POC ABG pO2 ABG pO2 ABG HCO3 ABG O2 Saturation ABG Base Excess ABG Hemoglobin ABG Oxyhemoglobin ABG Sodium ABG Potassium ABG Glucose Oxyhemoglobin Sodium Potassium Chloride Carbon Dioxide BUN Creatinine Glucose POC Glucose 138 H 180 H 178 H Lactic Acid Calcium Phosphorus Magnesium Ferritin Lactate Dehydrogenase C-Reactive Protein NT-Pro-B Natriuret Pep Total Protein Albumin Triglycerides Arterial Blood Glucose Ur Specific [place] Coronavirus (PCR) 03/31/21 03/31/21 03/31/21 12:50 13:30 16:06 WBC RBC Hgb 11.3 L Hct 35.1 L MCV MCHC RDW 16.5 H Plt Count Lymph % (Auto) 7.6 L [place] % (Auto) 9.5 H Lymph # (Auto) 0.6 L [place] # (Auto) Seg Neutrophils % 78.3 H Seg Neuts % (Manual) Lymphocytes % (Manual) Monocytes % (Manual) Nucleated RBC % Seg Neutrophils # Seg Neutrophils # Man Lymphocytes # (Manual) Monocytes # (Manual) PT INR APTT D-Dimer Heparin Anti-Xa Level ABG pH POC ABG pCO2 POC ABG pO2 ABG pO2 99.4 H ABG HCO3 34.9 H ABG O2 Saturation ABG Base Excess 8.4 H ABG Hemoglobin 11.8 L ABG Oxyhemoglobin ABG Sodium ABG Potassium ABG Glucose Oxyhemoglobin Sodium Potassium Chloride Carbon Dioxide BUN Creatinine Glucose POC Glucose 197 H Lactic Acid Calcium Phosphorus Magnesium Ferritin Lactate Dehydrogenase C-Reactive Protein NT-Pro-B Natriuret Pep Total Protein Albumin Triglycerides Arterial Blood Glucose Ur Specific [place] Coronavirus (PCR) 03/31/21 04/01/21 04/01/21 20:51 05:37 07:16 WBC RBC 3.39 L Hgb 10.5 L Hct 31.6 L MCV MCHC RDW 16.1 H Plt Count Lymph % (Auto) [place] % (Auto) Lymph # (Auto) [place] # (Auto) Seg Neutrophils % Seg Neuts % (Manual) Lymphocytes % (Manual) Monocytes % (Manual) Nucleated RBC % Seg Neutrophils # Seg Neutrophils # Man Lymphocytes # (Manual) Monocytes # (Manual) PT INR APTT D-Dimer Heparin Anti-Xa Level ABG pH POC ABG pCO2 POC ABG pO2 ABG pO2 ABG HCO3 ABG O2 Saturation ABG Base Excess ABG Hemoglobin ABG Oxyhemoglobin ABG Sodium ABG Potassium ABG Glucose Oxyhemoglobin Sodium Potassium Chloride Carbon Dioxide BUN Creatinine Glucose POC Glucose 140 H 128 H Lactic Acid Calcium Phosphorus Magnesium Ferritin Lactate Dehydrogenase C-Reactive Protein NT-Pro-B Natriuret Pep Total Protein Albumin Triglycerides Arterial Blood Glucose Ur Specific [place] Coronavirus (PCR) 04/01/21 04/01/21 04/01/21 07:16 11:52 16:56 WBC RBC Hgb Hct MCV MCHC RDW Plt Count Lymph % (Auto) [place] % (Auto) Lymph # (Auto) [place] # (Auto) Seg Neutrophils % Seg Neuts % (Manual) Lymphocytes % (Manual) Monocytes % (Manual) Nucleated RBC % Seg Neutrophils # Seg Neutrophils # Man Lymphocytes # (Manual) Monocytes # (Manual) PT INR APTT D-Dimer Heparin Anti-Xa Level ABG pH POC ABG pCO2 POC ABG pO2 ABG pO2 ABG HCO3 ABG O2 Saturation ABG Base Excess ABG Hemoglobin ABG Oxyhemoglobin ABG Sodium ABG Potassium ABG Glucose Oxyhemoglobin Sodium Potassium Chloride Carbon Dioxide BUN Creatinine 0.6 L Glucose 131 H POC Glucose 182 H 179 H Lactic Acid Calcium 8.3 L Phosphorus Magnesium Ferritin Lactate Dehydrogenase C-Reactive Protein NT-Pro-B Natriuret Pep Total Protein Albumin Triglycerides Arterial Blood Glucose Ur Specific [place] Coronavirus (PCR) 04/01/21 04/01/21 04/02/21 21:30 23:40 04:26 WBC RBC 3.62 L Hgb 10.8 L Hct 33.9 L MCV MCHC RDW 16.0 H Plt Count Lymph % (Auto) [place] % (Auto) Lymph # (Auto) [place] # (Auto) Seg Neutrophils % Seg Neuts % (Manual) Lymphocytes % (Manual) Monocytes % (Manual) Nucleated RBC % Seg Neutrophils # Seg Neutrophils # Man Lymphocytes # (Manual) Monocytes # (Manual) PT INR APTT D-Dimer Heparin Anti-Xa Level ABG pH POC ABG pCO2 POC ABG pO2 ABG pO2 ABG HCO3 ABG O2 Saturation ABG Base Excess ABG Hemoglobin ABG Oxyhemoglobin ABG Sodium ABG Potassium ABG Glucose Oxyhemoglobin Sodium Potassium Chloride Carbon Dioxide BUN Creatinine Glucose POC Glucose 131 H 129 H Lactic Acid Calcium Phosphorus Magnesium Ferritin Lactate Dehydrogenase C-Reactive Protein NT-Pro-B Natriuret Pep Total Protein Albumin Triglycerides Arterial Blood Glucose Ur Specific [place] Coronavirus (PCR) 04/02/21 04/02/21 04/02/21 04:26 05:54 11:35 WBC RBC Hgb Hct MCV MCHC RDW Plt Count Lymph % (Auto) [place] % (Auto) Lymph # (Auto) [place] # (Auto) Seg Neutrophils % Seg Neuts % (Manual) Lymphocytes % (Manual) Monocytes % (Manual) Nucleated RBC % Seg Neutrophils # Seg Neutrophils # Man Lymphocytes # (Manual) Monocytes # (Manual) PT INR APTT D-Dimer Heparin Anti-Xa Level ABG pH POC ABG pCO2 POC ABG pO2 ABG pO2 ABG HCO3 ABG O2 Saturation ABG Base Excess ABG Hemoglobin ABG Oxyhemoglobin ABG Sodium ABG Potassium ABG Glucose Oxyhemoglobin Sodium 136 L Potassium Chloride Carbon Dioxide BUN Creatinine 0.6 L Glucose 152 H POC Glucose 151 H 178 H Lactic Acid Calcium Phosphorus Magnesium Ferritin Lactate Dehydrogenase C-Reactive Protein NT-Pro-B Natriuret Pep Total Protein Albumin Triglycerides Arterial Blood Glucose Ur Specific [place] Coronavirus (PCR) 04/02/21 04/02/21 04/02/21 16:11 21:09 23:38 WBC RBC Hgb Hct MCV MCHC RDW Plt Count Lymph % (Auto) [place] % (Auto) Lymph # (Auto) [place] # (Auto) Seg Neutrophils % Seg Neuts % (Manual) Lymphocytes % (Manual) Monocytes % (Manual) Nucleated RBC % Seg Neutrophils # Seg Neutrophils # Man Lymphocytes # (Manual) Monocytes # (Manual) PT INR APTT D-Dimer Heparin Anti-Xa Level ABG pH POC ABG pCO2 POC ABG pO2 ABG pO2 ABG HCO3 ABG O2 Saturation ABG Base Excess ABG Hemoglobin ABG Oxyhemoglobin ABG Sodium ABG Potassium ABG Glucose Oxyhemoglobin Sodium Potassium Chloride Carbon Dioxide BUN Creatinine Glucose POC Glucose 186 H 145 H 152 H Lactic Acid Calcium Phosphorus Magnesium Ferritin Lactate Dehydrogenase C-Reactive Protein NT-Pro-B Natriuret Pep Total Protein Albumin Triglycerides Arterial Blood Glucose Ur Specific [place] Coronavirus (PCR) 04/03/21 04/03/21 04/03/21 04:14 04:14 05:27 WBC RBC 3.62 L Hgb 11.0 L Hct 34.0 L MCV MCHC RDW 16.3 H Plt Count Lymph % (Auto) [place] % (Auto) Lymph # (Auto) [place] # (Auto) Seg Neutrophils % Seg Neuts % (Manual) Lymphocytes % (Manual) Monocytes % (Manual) Nucleated RBC % Seg Neutrophils # Seg Neutrophils # Man Lymphocytes # (Manual) Monocytes # (Manual) PT INR APTT D-Dimer Heparin Anti-Xa Level ABG pH POC ABG pCO2 POC ABG pO2 ABG pO2 ABG HCO3 ABG O2 Saturation ABG Base Excess ABG Hemoglobin ABG Oxyhemoglobin ABG Sodium ABG Potassium ABG Glucose Oxyhemoglobin Sodium Potassium Chloride Carbon Dioxide 31 H BUN Creatinine 0.6 L Glucose 155 H POC Glucose 165 H Lactic Acid Calcium Phosphorus Magnesium Ferritin Lactate Dehydrogenase C-Reactive Protein NT-Pro-B Natriuret Pep Total Protein Albumin Triglycerides Arterial Blood Glucose Ur Specific [place] Coronavirus (PCR) 04/03/21 04/03/21 04/03/21 11:02 16:19 19:45 WBC RBC Hgb Hct MCV MCHC RDW Plt Count Lymph % (Auto) [place] % (Auto) Lymph # (Auto) [place] # (Auto) Seg Neutrophils % Seg Neuts % (Manual) Lymphocytes % (Manual) Monocytes % (Manual) Nucleated RBC % Seg Neutrophils # Seg Neutrophils # Man Lymphocytes # (Manual) Monocytes # (Manual) PT INR APTT D-Dimer Heparin Anti-Xa Level ABG pH POC ABG pCO2 POC ABG pO2 ABG pO2 ABG HCO3 ABG O2 Saturation ABG Base Excess ABG Hemoglobin ABG Oxyhemoglobin ABG Sodium ABG Potassium ABG Glucose Oxyhemoglobin Sodium Potassium Chloride Carbon Dioxide BUN Creatinine Glucose POC Glucose 161 H 180 H 136 H Lactic Acid Calcium Phosphorus Magnesium Ferritin Lactate Dehydrogenase C-Reactive Protein NT-Pro-B Natriuret Pep Total Protein Albumin Triglycerides Arterial Blood Glucose Ur Specific [place] Coronavirus (PCR) 04/04/21 04/04/21 04/04/21 00:21 04:33 04:33 WBC 13.1 H RBC 3.49 L Hgb 10.3 L Hct 32.7 L MCV MCHC RDW 16.1 H Plt Count Lymph % (Auto) [place] % (Auto) Lymph # (Auto) [place] # (Auto) Seg Neutrophils % Seg Neuts % (Manual) Lymphocytes % (Manual) Monocytes % (Manual) Nucleated RBC % Seg Neutrophils # Seg Neutrophils # Man Lymphocytes # (Manual) Monocytes # (Manual) PT INR APTT D-Dimer Heparin Anti-Xa Level ABG pH POC ABG pCO2 POC ABG pO2 ABG pO2 ABG HCO3 ABG O2 Saturation ABG Base Excess ABG Hemoglobin ABG Oxyhemoglobin ABG Sodium ABG Potassium ABG Glucose Oxyhemoglobin Sodium Potassium Chloride Carbon Dioxide 31 H BUN Creatinine 0.4 L Glucose 153 H POC Glucose 140 H Lactic Acid Calcium Phosphorus Magnesium Ferritin Lactate Dehydrogenase C-Reactive Protein NT-Pro-B Natriuret Pep Total Protein Albumin Triglycerides Arterial Blood Glucose Ur Specific [place] Coronavirus (PCR) 04/04/21 04/04/21 04/04/21 05:16 11:39 17:22 WBC RBC Hgb Hct MCV MCHC RDW Plt Count Lymph % (Auto) [place] % (Auto) Lymph # (Auto) [place] # (Auto) Seg Neutrophils % Seg Neuts % (Manual) Lymphocytes % (Manual) Monocytes % (Manual) Nucleated RBC % Seg Neutrophils # Seg Neutrophils # Man Lymphocytes # (Manual) Monocytes # (Manual) PT INR APTT D-Dimer Heparin Anti-Xa Level ABG pH POC ABG pCO2 POC ABG pO2 ABG pO2 ABG HCO3 ABG O2 Saturation ABG Base Excess ABG Hemoglobin ABG Oxyhemoglobin ABG Sodium ABG Potassium ABG Glucose Oxyhemoglobin Sodium Potassium Chloride Carbon Dioxide BUN Creatinine Glucose POC Glucose 152 H 154 H 198 H Lactic Acid Calcium Phosphorus Magnesium Ferritin Lactate Dehydrogenase C-Reactive Protein NT-Pro-B Natriuret Pep Total Protein Albumin Triglycerides Arterial Blood Glucose Ur Specific [place] Coronavirus (PCR) 04/04/21 04/04/21 04/05/21 20:14 23:16 04:15 WBC RBC 3.21 L Hgb 10.0 L Hct 30.3 L MCV MCHC RDW 16.4 H Plt Count Lymph % (Auto) [place] % (Auto) Lymph # (Auto) [place] # (Auto) Seg Neutrophils % Seg Neuts % (Manual) Lymphocytes % (Manual) Monocytes % (Manual) Nucleated RBC % Seg Neutrophils # Seg Neutrophils # Man Lymphocytes # (Manual) Monocytes # (Manual) PT INR APTT D-Dimer Heparin Anti-Xa Level ABG pH POC ABG pCO2 POC ABG pO2 ABG pO2 ABG HCO3 ABG O2 Saturation ABG Base Excess ABG Hemoglobin ABG Oxyhemoglobin ABG Sodium ABG Potassium ABG Glucose Oxyhemoglobin Sodium Potassium Chloride Carbon Dioxide BUN Creatinine Glucose POC Glucose 161 H 139 H Lactic Acid Calcium Phosphorus Magnesium Ferritin Lactate Dehydrogenase C-Reactive Protein NT-Pro-B Natriuret Pep Total Protein Albumin Triglycerides Arterial Blood Glucose Ur Specific [place] Coronavirus (PCR) 04/05/21 04/05/21 04/05/21 04:15 05:34 12:09 WBC RBC Hgb Hct MCV MCHC RDW Plt Count Lymph % (Auto) [place] % (Auto) Lymph # (Auto) [place] # (Auto) Seg Neutrophils % Seg Neuts % (Manual) Lymphocytes % (Manual) Monocytes % (Manual) Nucleated RBC % Seg Neutrophils # Seg Neutrophils # Man Lymphocytes # (Manual) Monocytes # (Manual) PT INR APTT D-Dimer Heparin Anti-Xa Level ABG pH POC ABG pCO2 POC ABG pO2 ABG pO2 ABG HCO3 ABG O2 Saturation ABG Base Excess ABG Hemoglobin ABG Oxyhemoglobin ABG Sodium ABG Potassium ABG Glucose Oxyhemoglobin Sodium Potassium Chloride 97.6 L Carbon Dioxide 32 H BUN Creatinine 0.5 L Glucose 147 H POC Glucose 145 H 173 H Lactic Acid Calcium Phosphorus Magnesium Ferritin Lactate Dehydrogenase C-Reactive Protein NT-Pro-B Natriuret Pep Total Protein Albumin Triglycerides Arterial Blood Glucose Ur Specific [place] Coronavirus (PCR) 04/05/21 04/05/21 04/05/21 17:35 21:07 23:15 WBC RBC Hgb Hct MCV MCHC RDW Plt Count Lymph % (Auto) [place] % (Auto) Lymph # (Auto) [place] # (Auto) Seg Neutrophils % Seg Neuts % (Manual) Lymphocytes % (Manual) Monocytes % (Manual) Nucleated RBC % Seg Neutrophils # Seg Neutrophils # Man Lymphocytes # (Manual) Monocytes # (Manual) PT INR APTT D-Dimer Heparin Anti-Xa Level ABG pH POC ABG pCO2 POC ABG pO2 ABG pO2 ABG HCO3 ABG O2 Saturation ABG Base Excess ABG Hemoglobin ABG Oxyhemoglobin ABG Sodium ABG Potassium ABG Glucose Oxyhemoglobin Sodium Potassium Chloride Carbon Dioxide BUN Creatinine Glucose POC Glucose 143 H 157 H 171 H Lactic Acid Calcium Phosphorus Magnesium Ferritin Lactate Dehydrogenase C-Reactive Protein NT-Pro-B Natriuret Pep Total Protein Albumin Triglycerides Arterial Blood Glucose Ur Specific [place] Coronavirus (PCR) 04/06/21 04/06/21 04/06/21 04:49 05:14 11:42 WBC RBC Hgb Hct MCV MCHC RDW Plt Count Lymph % (Auto) [place] % (Auto) Lymph # (Auto) [place] # (Auto) Seg Neutrophils % Seg Neuts % (Manual) Lymphocytes % (Manual) Monocytes % (Manual) Nucleated RBC % Seg Neutrophils # Seg Neutrophils # Man Lymphocytes # (Manual) Monocytes # (Manual) PT INR APTT D-Dimer Heparin Anti-Xa Level ABG pH POC ABG pCO2 57.4 H POC ABG pO2 55.1 L ABG pO2 ABG HCO3 ABG O2 Saturation ABG Base Excess ABG Hemoglobin 11.5 L ABG Oxyhemoglobin 87.5 L ABG Sodium ABG Potassium ABG Glucose Oxyhemoglobin Sodium Potassium Chloride Carbon Dioxide BUN Creatinine Glucose POC Glucose 145 H 171 H Lactic Acid Calcium Phosphorus Magnesium Ferritin Lactate Dehydrogenase C-Reactive Protein NT-Pro-B Natriuret Pep Total Protein Albumin Triglycerides Arterial Blood Glucose Ur Specific [place] Coronavirus (PCR) 04/06/21 04/06/21 04/06/21 11:50 15:36 15:36 WBC RBC Hgb 10.4 L Hct 32.5 L MCV MCHC RDW Plt Count 444 H Lymph % (Auto) [place] % (Auto) Lymph # (Auto) [place] # (Auto) Seg Neutrophils % Seg Neuts % (Manual) Lymphocytes % (Manual) Monocytes % (Manual) Nucleated RBC % Seg Neutrophils # Seg Neutrophils # Man Lymphocytes # (Manual) Monocytes # (Manual) PT INR APTT 37.1 H D-Dimer Heparin Anti-Xa Level ABG pH 7.341 L POC ABG pCO2 POC ABG pO2 ABG pO2 108.9 H ABG HCO3 38.9 H ABG O2 Saturation ABG Base Excess 10.6 H ABG Hemoglobin 11.5 L ABG Oxyhemoglobin ABG Sodium ABG Potassium ABG Glucose Oxyhemoglobin Sodium Potassium Chloride Carbon Dioxide BUN Creatinine Glucose POC Glucose Lactic Acid Calcium Phosphorus Magnesium Ferritin Lactate Dehydrogenase C-Reactive Protein NT-Pro-B Natriuret Pep Total Protein Albumin Triglycerides Arterial Blood Glucose Ur Specific [place] Coronavirus (PCR) 04/06/21 04/07/21 04/07/21 17:57 00:30 00:32 WBC RBC Hgb Hct MCV MCHC RDW Plt Count Lymph % (Auto) [place] % (Auto) Lymph # (Auto) [place] # (Auto) Seg Neutrophils % Seg Neuts % (Manual) Lymphocytes % (Manual) Monocytes % (Manual) Nucleated RBC % Seg Neutrophils # Seg Neutrophils # Man Lymphocytes # (Manual) Monocytes # (Manual) PT INR APTT D-Dimer Heparin Anti-Xa Level < 0.10 L ABG pH POC ABG pCO2 POC ABG pO2 ABG pO2 ABG HCO3 ABG O2 Saturation ABG Base Excess ABG Hemoglobin ABG Oxyhemoglobin ABG Sodium ABG Potassium ABG Glucose Oxyhemoglobin Sodium Potassium Chloride Carbon Dioxide BUN Creatinine Glucose POC Glucose 151 H 149 H Lactic Acid Calcium Phosphorus Magnesium Ferritin Lactate Dehydrogenase C-Reactive Protein NT-Pro-B Natriuret Pep Total Protein Albumin Triglycerides Arterial Blood Glucose Ur Specific [place] Coronavirus (PCR) 04/07/21 04/07/21 04/07/21 05:34 06:08 06:08 WBC RBC 3.20 L Hgb 9.6 L Hct 29.8 L MCV MCHC RDW 16.0 H Plt Count 455 H Lymph % (Auto) [place] % (Auto) Lymph # (Auto) [place] # (Auto) Seg Neutrophils % Seg Neuts % (Manual) Lymphocytes % (Manual) Monocytes % (Manual) Nucleated RBC % Seg Neutrophils # Seg Neutrophils # Man Lymphocytes # (Manual) Monocytes # (Manual) PT INR APTT D-Dimer Heparin Anti-Xa Level ABG pH POC ABG pCO2 POC ABG pO2 ABG pO2 ABG HCO3 ABG O2 Saturation ABG Base Excess ABG Hemoglobin ABG Oxyhemoglobin ABG Sodium ABG Potassium ABG Glucose Oxyhemoglobin Sodium Potassium Chloride Carbon Dioxide 35 H BUN Creatinine 0.5 L Glucose 216 H POC Glucose 182 H Lactic Acid Calcium Phosphorus Magnesium Ferritin Lactate Dehydrogenase C-Reactive Protein NT-Pro-B Natriuret Pep Total Protein Albumin Triglycerides Arterial Blood Glucose Ur Specific [place] Coronavirus (PCR) 04/07/21 04/07/21 04/07/21 07:55 11:57 17:12 WBC RBC Hgb Hct MCV MCHC RDW Plt Count Lymph % (Auto) [place] % (Auto) Lymph # (Auto) [place] # (Auto) Seg Neutrophils % Seg Neuts % (Manual) Lymphocytes % (Manual) Monocytes % (Manual) Nucleated RBC % Seg Neutrophils # Seg Neutrophils # Man Lymphocytes # (Manual) Monocytes # (Manual) PT INR APTT D-Dimer Heparin Anti-Xa Level < 0.10 L ABG pH POC ABG pCO2 POC ABG pO2 ABG pO2 ABG HCO3 ABG O2 Saturation ABG Base Excess ABG Hemoglobin ABG Oxyhemoglobin ABG Sodium ABG Potassium ABG Glucose Oxyhemoglobin Sodium Potassium Chloride Carbon Dioxide BUN Creatinine Glucose POC Glucose 182 H 165 H Lactic Acid Calcium Phosphorus Magnesium Ferritin Lactate Dehydrogenase C-Reactive Protein NT-Pro-B Natriuret Pep Total Protein Albumin Triglycerides Arterial Blood Glucose Ur Specific [place] Coronavirus (PCR) 04/07/21 04/08/21 04/08/21 19:55 00:16 03:57 WBC RBC Hgb Hct MCV MCHC RDW Plt Count Lymph % (Auto) [place] % (Auto) Lymph # (Auto) [place] # (Auto) Seg Neutrophils % Seg Neuts % (Manual) Lymphocytes % (Manual) Monocytes % (Manual) Nucleated RBC % Seg Neutrophils # Seg Neutrophils # Man Lymphocytes # (Manual) Monocytes # (Manual) PT INR APTT D-Dimer Heparin Anti-Xa Level < 0.10 L ABG pH POC ABG pCO2 POC ABG pO2 ABG pO2 ABG HCO3 ABG O2 Saturation ABG Base Excess ABG Hemoglobin ABG Oxyhemoglobin ABG Sodium ABG Potassium ABG Glucose Oxyhemoglobin Sodium Potassium 5.8 H Chloride 95.5 L Carbon Dioxide 37 H BUN Creatinine 0.5 L Glucose 161 H POC Glucose 175 H Lactic Acid Calcium Phosphorus Magnesium Ferritin Lactate Dehydrogenase C-Reactive Protein NT-Pro-B Natriuret Pep Total Protein Albumin Triglycerides Arterial Blood Glucose Ur Specific [place] Coronavirus (PCR) 04/08/21 04/08/21 04/08/21 04:00 05:43 09:26 WBC RBC 3.25 L Hgb 9.9 L Hct 30.8 L MCV 95 H MCHC RDW 16.0 H Plt Count 487 H Lymph % (Auto) [place] % (Auto) Lymph # (Auto) [place] # (Auto) Seg Neutrophils % Seg Neuts % (Manual) Lymphocytes % (Manual) Monocytes % (Manual) Nucleated RBC % Seg Neutrophils # Seg Neutrophils # Man Lymphocytes # (Manual) Monocytes # (Manual) PT INR APTT D-Dimer Heparin Anti-Xa Level ABG pH POC ABG pCO2 POC ABG pO2 ABG pO2 ABG HCO3 ABG O2 Saturation ABG Base Excess ABG Hemoglobin ABG Oxyhemoglobin ABG Sodium ABG Potassium ABG Glucose Oxyhemoglobin Sodium Potassium Chloride Carbon Dioxide BUN Creatinine Glucose POC Glucose 162 H 164 H Lactic Acid Calcium Phosphorus Magnesium Ferritin Lactate Dehydrogenase C-Reactive Protein NT-Pro-B Natriuret Pep Total Protein Albumin Triglycerides Arterial Blood Glucose Ur Specific [place] Coronavirus (PCR) 04/08/21 04/08/21 04/08/21 11:53 17:19 20:35 WBC RBC Hgb Hct MCV MCHC RDW Plt Count Lymph % (Auto) [place] % (Auto) Lymph # (Auto) [place] # (Auto) Seg Neutrophils % Seg Neuts % (Manual) Lymphocytes % (Manual) Monocytes % (Manual) Nucleated RBC % Seg Neutrophils # Seg Neutrophils # Man Lymphocytes # (Manual) Monocytes # (Manual) PT INR APTT D-Dimer Heparin Anti-Xa Level ABG pH POC ABG pCO2 POC ABG pO2 ABG pO2 ABG HCO3 ABG O2 Saturation ABG Base Excess ABG Hemoglobin ABG Oxyhemoglobin ABG Sodium ABG Potassium ABG Glucose Oxyhemoglobin Sodium Potassium Chloride Carbon Dioxide BUN Creatinine Glucose POC Glucose 170 H 157 H 190 H Lactic Acid Calcium Phosphorus Magnesium Ferritin Lactate Dehydrogenase C-Reactive Protein NT-Pro-B Natriuret Pep Total Protein Albumin Triglycerides Arterial Blood Glucose Ur Specific [place] Coronavirus (PCR) 04/08/21 04/09/21 04/09/21 23:52 04:21 04:21 WBC 11.4 H RBC 2.97 L Hgb 8.9 L Hct 27.8 L MCV MCHC RDW 15.8 H Plt Count 485 H Lymph % (Auto) [place] % (Auto) Lymph # (Auto) [place] # (Auto) Seg Neutrophils % Seg Neuts % (Manual) Lymphocytes % (Manual) Monocytes % (Manual) Nucleated RBC % Seg Neutrophils # Seg Neutrophils # Man Lymphocytes # (Manual) Monocytes # (Manual) PT INR APTT D-Dimer Heparin Anti-Xa Level ABG pH POC ABG pCO2 POC ABG pO2 ABG pO2 ABG HCO3 ABG O2 Saturation ABG Base Excess ABG Hemoglobin ABG Oxyhemoglobin ABG Sodium ABG Potassium ABG Glucose Oxyhemoglobin Sodium Potassium Chloride 97.1 L Carbon Dioxide 40 H BUN 21 H Creatinine 0.5 L Glucose 149 H POC Glucose 170 H Lactic Acid Calcium Phosphorus 1.90 L D Magnesium Ferritin Lactate Dehydrogenase C-Reactive Protein NT-Pro-B Natriuret Pep Total Protein Albumin Triglycerides Arterial Blood Glucose Ur Specific [place] Coronavirus (PCR) 04/09/21 04/09/21 04/09/21 05:27 11:55 17:11 WBC RBC Hgb Hct MCV MCHC RDW Plt Count Lymph % (Auto) [place] % (Auto) Lymph # (Auto) [place] # (Auto) Seg Neutrophils % Seg Neuts % (Manual) Lymphocytes % (Manual) Monocytes % (Manual) Nucleated RBC % Seg Neutrophils # Seg Neutrophils # Man Lymphocytes # (Manual) Monocytes # (Manual) PT INR APTT D-Dimer Heparin Anti-Xa Level ABG pH POC ABG pCO2 POC ABG pO2 ABG pO2 ABG HCO3 ABG O2 Saturation ABG Base Excess ABG Hemoglobin ABG Oxyhemoglobin ABG Sodium ABG Potassium ABG Glucose Oxyhemoglobin Sodium Potassium Chloride Carbon Dioxide BUN Creatinine Glucose POC Glucose 144 H 190 H 163 H Lactic Acid Calcium Phosphorus Magnesium Ferritin Lactate Dehydrogenase C-Reactive Protein NT-Pro-B Natriuret Pep Total Protein Albumin Triglycerides Arterial Blood Glucose Ur Specific [place] Coronavirus (PCR) 04/09/21 04/09/21 04/09/21 20:10 21:12 23:33 WBC RBC Hgb Hct MCV MCHC RDW Plt Count Lymph % (Auto) [place] % (Auto) Lymph # (Auto) [place] # (Auto) Seg Neutrophils % Seg Neuts % (Manual) Lymphocytes % (Manual) Monocytes % (Manual) Nucleated RBC % Seg Neutrophils # Seg Neutrophils # Man Lymphocytes # (Manual) Monocytes # (Manual) PT INR APTT D-Dimer Heparin Anti-Xa Level ABG pH POC ABG pCO2 POC ABG pO2 ABG pO2 68.1 L ABG HCO3 41.3 H ABG O2 Saturation ABG Base Excess 14.6 H ABG Hemoglobin 10.2 L ABG Oxyhemoglobin ABG Sodium ABG Potassium ABG Glucose Oxyhemoglobin 94.7 L Sodium Potassium Chloride Carbon Dioxide BUN Creatinine Glucose POC Glucose 163 H 164 H Lactic Acid Calcium Phosphorus Magnesium Ferritin Lactate Dehydrogenase C-Reactive Protein NT-Pro-B Natriuret Pep Total Protein Albumin Triglycerides Arterial Blood Glucose Ur Specific [place] Coronavirus (PCR) 04/10/21 04/10/21 04/10/21 05:26 11:41 13:00 WBC RBC 3.09 L Hgb 9.3 L Hct 28.3 L MCV MCHC RDW 15.8 H Plt Count 480 H Lymph % (Auto) [place] % (Auto) Lymph # (Auto) [place] # (Auto) Seg Neutrophils % Seg Neuts % (Manual) Lymphocytes % (Manual) Monocytes % (Manual) Nucleated RBC % Seg Neutrophils # Seg Neutrophils # Man Lymphocytes # (Manual) Monocytes # (Manual) PT INR APTT D-Dimer Heparin Anti-Xa Level ABG pH POC ABG pCO2 POC ABG pO2 ABG pO2 ABG HCO3 ABG O2 Saturation ABG Base Excess ABG Hemoglobin ABG Oxyhemoglobin ABG Sodium ABG Potassium ABG Glucose Oxyhemoglobin Sodium Potassium Chloride Carbon Dioxide BUN Creatinine Glucose POC Glucose 172 H 150 H Lactic Acid Calcium Phosphorus Magnesium Ferritin Lactate Dehydrogenase C-Reactive Protein NT-Pro-B Natriuret Pep Total Protein Albumin Triglycerides Arterial Blood Glucose Ur Specific [place] Coronavirus (PCR) 04/10/21 04/10/21 04/10/21 13:00 17:46 21:37 WBC RBC Hgb Hct MCV MCHC RDW Plt Count Lymph % (Auto) [place] % (Auto) Lymph # (Auto) [place] # (Auto) Seg Neutrophils % Seg Neuts % (Manual) Lymphocytes % (Manual) Monocytes % (Manual) Nucleated RBC % Seg Neutrophils # Seg Neutrophils # Man Lymphocytes # (Manual) Monocytes # (Manual) PT INR APTT D-Dimer Heparin Anti-Xa Level ABG pH POC ABG pCO2 POC ABG pO2 ABG pO2 ABG HCO3 ABG O2 Saturation ABG Base Excess ABG Hemoglobin ABG Oxyhemoglobin ABG Sodium ABG Potassium ABG Glucose Oxyhemoglobin Sodium Potassium Chloride 96.4 L Carbon Dioxide 34 H BUN Creatinine 0.5 L Glucose 165 H POC Glucose 165 H 166 H Lactic Acid Calcium Phosphorus Magnesium Ferritin Lactate Dehydrogenase C-Reactive Protein NT-Pro-B Natriuret Pep Total Protein Albumin Triglycerides Arterial Blood Glucose Ur Specific [place] Coronavirus (PCR) 04/10/21 04/11/21 04/11/21 23:56 04:30 05:39 WBC 11.5 H RBC 3.02 L Hgb 8.9 L Hct 27.8 L MCV MCHC RDW 16.0 H Plt Count 505 H Lymph % (Auto) [place] % (Auto) Lymph # (Auto) [place] # (Auto) Seg Neutrophils % Seg Neuts % (Manual) Lymphocytes % (Manual) Monocytes % (Manual) Nucleated RBC % Seg Neutrophils # Seg Neutrophils # Man Lymphocytes # (Manual) Monocytes # (Manual) PT INR APTT D-Dimer Heparin Anti-Xa Level ABG pH POC ABG pCO2 POC ABG pO2 ABG pO2 ABG HCO3 ABG O2 Saturation ABG Base Excess ABG Hemoglobin ABG Oxyhemoglobin ABG Sodium ABG Potassium ABG Glucose Oxyhemoglobin Sodium Potassium Chloride Carbon Dioxide BUN Creatinine Glucose POC Glucose 156 H 164 H Lactic Acid Calcium Phosphorus Magnesium Ferritin Lactate Dehydrogenase C-Reactive Protein NT-Pro-B Natriuret Pep Total Protein Albumin Triglycerides Arterial Blood Glucose Ur Specific [place] Coronavirus (PCR) 04/11/21 04/11/21 04/11/21 06:47 06:47 11:29 WBC RBC 3.35 L Hgb 9.8 L Hct 30.7 L MCV MCHC RDW 16.3 H Plt Count 520 H Lymph % (Auto) [place] % (Auto) Lymph # (Auto) [place] # (Auto) Seg Neutrophils % Seg Neuts % (Manual) 76.0 H Lymphocytes % (Manual) 10.0 L Monocytes % (Manual) Nucleated RBC % Seg Neutrophils # Seg Neutrophils # Man 8.3 H Lymphocytes # (Manual) 1.1 L Monocytes # (Manual) PT INR APTT D-Dimer Heparin Anti-Xa Level ABG pH POC ABG pCO2 POC ABG pO2 ABG pO2 ABG HCO3 ABG O2 Saturation ABG Base Excess ABG Hemoglobin ABG Oxyhemoglobin ABG Sodium ABG Potassium ABG Glucose Oxyhemoglobin Sodium Potassium Chloride 97.7 L Carbon Dioxide 34 H BUN Creatinine 0.4 L Glucose 178 H POC Glucose 170 H Lactic Acid Calcium Phosphorus Magnesium Ferritin Lactate Dehydrogenase C-Reactive Protein NT-Pro-B Natriuret Pep Total Protein Albumin Triglycerides Arterial Blood Glucose Ur Specific [place] Coronavirus (PCR) 04/11/21 04/11/21 04/11/21 18:17 18:17 18:17 WBC RBC 3.22 L Hgb 9.5 L Hct 29.8 L MCV MCHC RDW 16.0 H Plt Count Lymph % (Auto) [place] % (Auto) Lymph # (Auto) [place] # (Auto) Seg Neutrophils % Seg Neuts % (Manual) Lymphocytes % (Manual) Monocytes % (Manual) Nucleated RBC % Seg Neutrophils # Seg Neutrophils # Man Lymphocytes # (Manual) Monocytes # (Manual) PT INR APTT 61.1 H* D-Dimer Heparin Anti-Xa Level ABG pH POC ABG pCO2 POC ABG pO2 ABG pO2 ABG HCO3 ABG O2 Saturation ABG Base Excess ABG Hemoglobin ABG Oxyhemoglobin ABG Sodium ABG Potassium ABG Glucose Oxyhemoglobin Sodium Potassium Chloride Carbon Dioxide BUN Creatinine 0.3 L Glucose POC Glucose Lactic Acid Calcium Phosphorus Magnesium Ferritin Lactate Dehydrogenase C-Reactive Protein NT-Pro-B Natriuret Pep Total Protein Albumin Triglycerides Arterial Blood Glucose Ur Specific [place] Coronavirus (PCR) 04/11/21 04/12/21 04/12/21 18:25 00:19 05:11 WBC RBC 2.92 L Hgb 8.6 L Hct 26.9 L MCV MCHC RDW 16.3 H Plt Count 460 H Lymph % (Auto) [place] % (Auto) Lymph # (Auto) [place] # (Auto) Seg Neutrophils % Seg Neuts % (Manual) Lymphocytes % (Manual) Monocytes % (Manual) Nucleated RBC % Seg Neutrophils # Seg Neutrophils # Man Lymphocytes # (Manual) Monocytes # (Manual) PT INR APTT D-Dimer Heparin Anti-Xa Level ABG pH POC ABG pCO2 POC ABG pO2 ABG pO2 ABG HCO3 ABG O2 Saturation ABG Base Excess ABG Hemoglobin ABG Oxyhemoglobin ABG Sodium ABG Potassium ABG Glucose Oxyhemoglobin Sodium Potassium Chloride Carbon Dioxide BUN Creatinine Glucose POC Glucose 167 H 128 H Lactic Acid Calcium Phosphorus Magnesium Ferritin Lactate Dehydrogenase C-Reactive Protein NT-Pro-B Natriuret Pep Total Protein Albumin Triglycerides Arterial Blood Glucose Ur Specific [place] Coronavirus (PCR) 04/12/21 04/12/21 04/12/21 05:11 05:11 06:23 WBC RBC Hgb Hct MCV MCHC RDW Plt Count Lymph % (Auto) [place] % (Auto) Lymph # (Auto) [place] # (Auto) Seg Neutrophils % Seg Neuts % (Manual) Lymphocytes % (Manual) Monocytes % (Manual) Nucleated RBC % Seg Neutrophils # Seg Neutrophils # Man Lymphocytes # (Manual) Monocytes # (Manual) PT INR APTT D-Dimer Heparin Anti-Xa Level 1.03 H ABG pH POC ABG pCO2 POC ABG pO2 ABG pO2 ABG HCO3 ABG O2 Saturation ABG Base Excess ABG Hemoglobin ABG Oxyhemoglobin ABG Sodium ABG Potassium ABG Glucose Oxyhemoglobin Sodium Potassium Chloride Carbon Dioxide 34 H BUN Creatinine 0.3 L Glucose 153 H POC Glucose 162 H Lactic Acid Calcium Phosphorus Magnesium Ferritin Lactate Dehydrogenase C-Reactive Protein NT-Pro-B Natriuret Pep Total Protein Albumin Triglycerides Arterial Blood Glucose Ur Specific [place] Coronavirus (PCR) 04/12/21 04/12/21 04/12/21 09:45 11:08 15:56 WBC RBC Hgb Hct MCV MCHC RDW Plt Count Lymph % (Auto) [place] % (Auto) Lymph # (Auto) [place] # (Auto) Seg Neutrophils % Seg Neuts % (Manual) Lymphocytes % (Manual) Monocytes % (Manual) Nucleated RBC % Seg Neutrophils # Seg Neutrophils # Man Lymphocytes # (Manual) Monocytes # (Manual) PT INR APTT D-Dimer Heparin Anti-Xa Level ABG pH POC ABG pCO2 POC ABG pO2 ABG pO2 70.8 L ABG HCO3 41.0 H ABG O2 Saturation ABG Base Excess 13.7 H ABG Hemoglobin 8.3 L ABG Oxyhemoglobin ABG Sodium ABG Potassium ABG Glucose Oxyhemoglobin 94.0 L Sodium Potassium Chloride Carbon Dioxide BUN Creatinine Glucose POC Glucose 174 H 146 H Lactic Acid Calcium Phosphorus Magnesium Ferritin Lactate Dehydrogenase C-Reactive Protein NT-Pro-B Natriuret Pep Total Protein Albumin Triglycerides Arterial Blood Glucose Ur Specific [place] Coronavirus (PCR) Allied health notes reviewed: RT
[2021-04-12] MEDS: INSULIN GLARGINE 100 UNITS/ML SUB-Q SCH (21:58)
[2021-04-13] MEDS: fentaNYL DRIP Premix 2,000 MCG/100 ML BAG IV SCH ×2 (00:35→05:22)
[2021-04-13] MEDS: INSULIN LISPRO 100 UNIT/ML SUB-Q SCH ×5 (01:07→18:45)
[2021-04-13] MEDS: chlordiazePOXIDE 25 MG CAP PO SCH ×2 (01:09→05:01)
[2021-04-13 05:08] LABS: Hematocrit 27.3 % (35.5-45.6); Hemoglobin 8.9 gm/dl (11.8-15.2); Mean Corpuscular HGB Conc 33 % (32-34); Mean Corpuscular Volume 92 fl (84-94); Platelet Count 470 K/mm3 (140-440); Red Blood Count 2.97 M/mm3 (3.65-5.03); Red Cell Distribution Width 16.4 % (13.2-15.2)
[2021-04-13 05:23] LABS: Blood Urea Nitrogen 16 mg/dL (9-20); Calcium 9.5 mg/dL (8.4-10.2); Hemolysis Index 1
[2021-04-13 05:35] LABS: BUN/Creatinine Ratio 53
--- NOTE | 2021-04-13 05:35 | XRay Report ---
CHEST 1 VIEW INDICATION / CLINICAL INFORMATION: Hypoxia. COMPARISON: Chest x-ray 04/12/2021 FINDINGS: SUPPORT DEVICES: Tracheostomy tube stable. HEART / MEDIASTINUM: Stable. LUNGS / PLEURA: Improved lung volumes and interval partial clearing of airspace opacities is demonstr ated. No pneumothorax. ADDITIONAL FINDINGS: No significant additional findings. IMPRESSION: 1. Improving lung volume and partial clearing of airspace opacities demonstrated. Signer Name: Diaz Bella II, MD Signed: 04/13/2021 5:30 AM Workstation Name: [id number]
[2021-04-13] MEDS: hydrALAZINE 25 MG TAB PO SCH ×3 (06:03→21:33)
[2021-04-13] MEDS: BUDESONIDE 0.5 MG/2 ML NEBU IH SCH ×2 (07:39→20:07)
[2021-04-13] MEDS: ARFORMOTEROL 15 MCG/2 ML NEBU IH SCH ×2 (07:39→20:07)
[2021-04-13] MEDS ORDERED: FUROSEMIDE 20 MG/2 ML INJ IV SCH (08:00)
[2021-04-13] MEDS: oxyCODONE 5 MG TAB PO SCH (08:50)
[2021-04-13] MEDS ORDERED: FUROSEMIDE 40 MG/4 ML INJ IV ONE (09:00)
[2021-04-13] MEDS ORDERED: chlordiazePOXIDE 25 MG CAP PO SCH (10:00)
[2021-04-13] MEDS: SENNOSIDES/DOCUSATE SODIUM 8.6/50 MG TAB FEEDTUBE SCH ×2 (10:44→21:32)
[2021-04-13] MEDS: APIXABAN 5 MG TAB PO SCH ×2 (10:44→21:34)
[2021-04-13] MEDS: amLODIPine 5 MG TAB PO SCH (10:45)
[2021-04-13] MEDS: FAMOTIDINE 20 MG TAB FEEDTUBE SCH ×2 (10:45→21:37)
[2021-04-13] MEDS: DOXAZOSIN 1 MG TAB PO SCH ×2 (10:45→21:35)
[2021-04-13] MEDS: POLYETHYLENE GLYCOL 3350 17 GM POWDER FEEDTUBE SCH (10:46)
[2021-04-13] MEDS: METOPROLOL TARTRATE 25 MG TAB PO SCH ×2 (10:46→21:36)
[2021-04-13] MEDS: QUEtiapine 25 MG TAB PO SCH (10:53)
--- NOTE | 2021-04-13 12:35 | Progress Note ---
<DEBBY ELLISON - Last Filed: 04/13/21 15:46> Assessment and Plan Assessment and plan: This is a 61-year-old male with past medical history of HTN and DM admitted for sepsis and acute hypoxic respiratory failure 2/2 COVID pneumonia requiring ventilatory support. Hospital Course to Date: 03/09: The patient was seen and evaluated today, and he was found to be hemodynamically stable. The patient is currently on BiPAP for possible COVID-19 pneumonia. He was started on Lovenox 1mg/kg for DVT ppx in the setting of d- dimer > 10,000. Infectious Disease was consulted. The patient is pending a TTE. 03/10: No acute events overnight, patient was intubated in the afternoon transferred to ICU 03/11: Patient started on Lantus, free water flushes increased, propofol drip resumed and oral antihypertensive added. 03/12: lantus increased, k at 5, will monitor. I updated his family and his stated that he is not vaccinated. He does have HTN and she will call the RN to update home medications. She did say he takes bystolic and amlopine. She inquired about ventilator and lab work. She had no further questions. 03/13: KVNG overnight. Patient remains hyperglycemic, basal insulin adjusted and increased to Q12hrs. Patient is overall net positive since admit X1 dose of IV lasix, repeat BMP this afternoon. 03/14: Failed SAT this am due to increase agitation, tachycardia and hypertension. Remains on propofol and fentanyl gtt. Hyperkalemia treated with PO kayaxalate. Patient responded to IV lasix yesterday additional dose again today for a net negative balance. Repeat BMP this afternoon. Insulin adjusted for hyperglycemia. 03/15: Remains encephalopathic, not following commansd. Orders placed for CT head/Brain and Neuro consulted. Rectal bleeding subsided, most likely due to hemorrhoids. H&H is stable will continue to monitor. Kayaxexalate for high K, repeat labs 4 to 6hrs post treatment. 03/16: Still agiated this am, CT head with no acute Abn. CXR and ABG noted- evolving pna and worsening hypoxia, now with low grade fevers. Sputum culture ordered, IV Abx added, ID on cosult. 03/17: This am ABG noted, hypoxia improved. Continue to wean FiO2 as tolerated. Still with low grade fevers, on IV Abx per ID. Still with periods of confusion despite sedation, seroquel increased. F/u CXR in the am 03/18: still very agitated especially when off sedation, with hypertension and tachycardia. Continue sedation for RASS -2, PRN antihypertensive for SPB greater than 160. This febrile this am, continue current IV abx per ID 03/19: Patient afebrile overnight, continue IV Abx per ID. ABG also improved this am, continue to wean FIO2 as tolerated. PRN antihypertensive for hypertension. 03/20: Hyperkalemia treated with Kayexalate, Good discontinued, vancomycin and cefepime stopped started Bactrim by ID. Steroid taper started. 03/21: BB started for hypertension, Seroquel increased for agitation and Librium started no acute events reported overnight. [facility] made vent changes 03/22: Adjustment to anxiolytics, respiratory rate on ventilator per [facility]. Patient noted to have bleeding hemorrhoids with clot, requested RN to remove bowel management system and will order Preparation H. 03/23: Given no confirmed DVT or PE (only superficial thrombus noted on Dopplers) therapeutic Lovenox changed to prophylactic Lovenox. Started on doxazosin to help with retention. Consulted surgery for tracheostomy and propofol discontinued. 03/24: Surgery consult completed, patient changed to prophylaxis anticoagulation, started on doxazosin yesterday with plans to remove Good catheter in 48 hours. Patient with slight hypokalemia today and given Kayexalate. No acute events reported overnight. 03/25: No acute events reported overnight. Patient remains on fentanyl drip and on CPAP trial this morning. 03/26: no acute events reported overnight. placed on CPAP this AM, remains on fent/librium. scheduled for trach/peg this week. 03/27: Hypoglycemic this am, will decreased lantus to Qhs. Plan for possible Trach and Peg by Gen Surg this am. Case management to arrange possible LTAC placement 03/28: KVNG overnight. Tolerating PST this am. Plan for trach and PEG tomorrow by Gen. Surgery, NPO after midnight. 03/29: No significant changes overnight. Plan for trach and Peg today. Case management to arrange possible LTAC placement 03/30. S/p Trach and PEG, no complications noted. High residual yesterday despite NPO status, reglan added X2 days. Per RN no residual this am, patient is tolerating TF. Continue to advance TF as tolerated. Norvasc added for hypertension. Pitting edema also appreciated, some diuretic might be beneficial, will d/w CCM. Continue daily PST as tolerated. 03/31: Patient remains on the vent still on fentanyl gtt with periods of agitation. PRN analgesia added, plan to start weaning off fentanyl gtt. Febrile this am, completed IV abx course. Will panculture for now, ID is also following. 04/01: Still febrile overnight, cultures result pending, continue IV ABx per ID. Failed PST this am. Continue daily PST and vent wean per [facility]. Case management to arrange possible placement. 04/02: KVNG overnight. Fevers improved overnight, continue to follow cultures data, IV ABx per ID. Continue daily PST and wean vent as per [facility].\ 04/03: Given low procalcitonin, unchanged CXR and cultures with no growth cefepime was discontinued by ID. LTAC evaluation ongoing. No acute events reported overnight. 04/04: IV Lasix stopped today, Seroquel taper started, fentanyl drip on hold and steroids stopped. Pressure support trial again today. 04/05: Patient had to be restarted on fentanyl drip therefore Seroquel was increased back to 250 twice daily and he was started on scheduled narcotics and efforts to wean fentanyl drip. Doxazosin was increased to twice daily as patient still had retention issues on doxazosin once a day. Patient was denied LTAC placement. CPAP trial today. 04/06: Right upper extremity ultrasound obtained due to edema which showed DVT. Patient started on heparin drip. Overnight patient had hypoxia, tachypnea, tachycardia, hypotension and FiO2 was increased to 100%. RT titrating as tolerated. Plan was to start T-piece trials today. Patient has been denied LTAC placement. 04/07: BLE dopplar, continue lasix per [facility], CXR in AM. Increase in fio2 overnight d/t desaturation. Wean FiO2 as tolerated. 04/08: Patient remains on 65% FiO2, s/p Lasix for 3 doses, hyperkalemia noted today and medically treated. [facility] plans to consult heme/onc once FiO2 decreased. Remains on heparin gtt 04/09: No acute events reported overnight, possible heme-onc consult on Saturday or Saturday regarding upper extremity DVT, wean FiO2 as tolerated. Repeat CT head on Monday 04/10: Patient mentation is unchanged, repeat CT head today. Remains on heparin gtt per protocol. Continue daily PST as tolerated. 04/11: Increased work of breathing and high RR overnight, vent FiO2 increased to 55%. Resolved this am, patient is tolerating PST, no acute distress noted. Wean Fio2 as tolerated for SPO2 above 92%, Follow up CXR and ABG in the am. Antihypertensive regimen adjusted for better BP control. 04/12: Patient with coarse lungs and increased secretion today. This am CXR noted with worsen infiltrate, 40 of Lasix given, repeat CXR in the am. Patient remains afebrile, complete IV Abx course, VSS. Transitioned to PO Eliquis overnight, continue to keep patient net negative for better lung compliance. Continue daily PST as tolerated. 04/13: Patient is off sedation this am. Remains unresponsive. Librium D/C and Seroquel was adjusted to Qhs, PRN analgesia for pain management. Patient responded well to IV lasix, this am CXR with some improvement, additional IV lasix ordered again today. high CO2 also noted from this am, ABG ordered. Patient is tolerating PST this am, SPO2 remains above 95%. Continue daily PST plan to get patient off the vent for possible SNF placemement Assessment and Plan #Acute Hypoxic Respiratory Failure #COVID Pneumonia - Intubated on 03/10 due to worsen hypoxia on BIPAP - 2/2 s/p Tracheostomy - Vent setting:CPAP-55%,8, PS-10 - This am ABG pending - CCM consulted, appreciate recommendations - Continue Nebs per CCM - keep patient net negative for better lung compliance - VAP bundle addressed - Aspiration precaution HOB above 30 - Daily SBT and SAT trials as tolerated - PRN ABG and CXR - Continue SPO2 monitoring for SPO2 goal above 92% #Sepsis #COVID Pneumonia #Leukocytosis #Lactic Acidosis- Resolved - COVID PCR positive - UA neg, Blood cultures and Sputum culture NGTD - repeat Bculture NGTD, 03/17 Sputum Cult + Stenotrophomonas - Infectious disease consulted, appreciate recommendation - S/p Actemra 03/10/2021 - Completed X5days course of IV remdesivir - IV abx per ID - Monitor WBC and temperature curve - Trend CBC -04/07 Per ID: if persistently febrile and WBC rises, reculture and then restart abx: IV Cefepime + Vancomycin #Neuro:Acute Encephalopathy - Off sedation, unresponsive - CT head/brain no acute Abn. - Repeat CT head noted - Librium D/Rashaun - Seroquel decreased to Qhs - Avoid benzodiazepine to reduce the possibility of delirium - Prn analgesia for CPOT greater than 3 - Maintenance of sleep-wake cycle - Neurology on consult #CV: Hypertension - 03/09 Echocardiogram shows a mildly dilated ascending aorta, normal LV systolic function, mild concentric LVH, LVEF 60 to 65% - Continue current antihypertensive regimen - PRN Labetalol for SBP above 160 - Continue Blood pressure monitoring per protocol #Urinary retention - Good reinserted for retention - Strict intake and output - Avoid nephrotoxic medications; Renally dose medications - Monitor and replace electrolytes as needed - Trend BMP #Acute right upper extremity DVT - Bilateral lower extremity ultrasounds negative for DVT, superficial thrombus in left gastrocnemius vein - CTA chest shows no gross pulm embolism - bilateral upper extremity ultrasound shows DVT in right upper extremity - Transitioned to PO Eliquis - SCDs to BLE while in bed - Transfuse hemoglobin less than 7 - Monitor for signs of bleeding #Endo:Type 2 DM - Continue high dose SSI Q6hrs - Lantus qHs - Avoid Hypoglycemia The high probability of a clinically significant, sudden or life threatening deterioration of the [Respiratory] system(s) required my full and direct attention, intervention and personal management. The aggregate critical care time was [60] minutes. This time is in addition to time spent performing reported procedures but includes the following: [x] Data Review and interpretation [x] Patient assessment and monitoring of vital signs [x] Documentation [x] Medication orders and management Disposition Plan: ICU Total Time Spent with Patient (Minutes): 60 History Interval history: Patient seen and examined at the bedside. Remains on the vent. Off sedation, remains unresponsive this am. KVNG overnight Hospitalist Physical - Constitutional Vitals: Temp Pulse Resp BP Pulse Ox 100.1 F H 103 H 20 136/73 100 04/13/21 11:38 04/13/21 12:00 04/13/21 12:00 04/13/21 11:34 04/13/21 12:00 General appearance: Present: no acute distress, well-nourished, obese, other (On the vent) - EENT Eyes: Present: PERRL - Respiratory Respiratory effort: accessory muscle use Respiratory: bilateral: rhonchi - Cardiovascular Rhythm: regular Heart Sounds: Present: S1 & S2 - Extremities Extremities: no ischemia, pulses intact, pulses symmetrical Extremity abnormal: edema - Peripheral Assessment Generalized Edema Type: Pitting Edema Degree: 2+ Capillary Refill: < 3 seconds Skin Temperature: Warm Peripheral Pulses: within normal limits - Abdominal General gastrointestinal: soft, non-distended, normal bowel sounds - Integumentary Integumentary: Present: warm, dry - Psychiatric Psychiatric: other (Off sedation, unresponsive) - Neurologic Neurologic: other (Off sedation, unresponsive) - Allied Health Allied health notes reviewed: nursing Results - Labs CBC & Chem 7: 04/13/21 04:34 04/13/21 04:34 Labs: Laboratory Last Values WBC 12.5 K/mm3 (4.5-11.0) H 04/13/21 04:34 RBC 2.97 M/mm3 (3.65-5.03) L 04/13/21 04:34 Hgb 8.9 gm/dl (11.8-15.2) L 04/13/21 04:34 Hct 27.3 % (35.5-45.6) L 04/13/21 04:34 MCV 92 fl (84-94) 04/13/21 04:34 MCH 30 pg (28-32) 04/13/21 04:34 MCHC 33 % (32-34) 04/13/21 04:34 RDW 16.4 % (13.2-15.2) H 04/13/21 04:34 Plt Count 470 K/mm3 (140-440) H 04/13/21 04:34 Lymph % (Auto) 7.6 % (13.4-35.0) L 03/31/21 13:30 [place] % (Auto) 9.5 % (0.0-7.3) H 03/31/21 13:30 Eos % (Auto) 4.1 % (0.0-4.3) 03/31/21 13:30 Baso % (Auto) 0.5 % (0.0-1.8) 03/31/21 13:30 Lymph # (Auto) 0.6 K/mm3 (1.2-5.4) L 03/31/21 13:30 [place] # (Auto) 0.7 K/mm3 (0.0-0.8) 03/31/21 13:30 Eos # (Auto) 0.3 K/mm3 (0.0-0.4) 03/31/21 13:30 Baso # (Auto) 0.0 K/mm3 (0.0-0.1) 03/31/21 13:30 Add Manual Diff Complete 04/11/21 06:47 Total Counted 100 04/11/21 06:47 Seg Neutrophils % 78.3 % (40.0-70.0) H 03/31/21 13:30 Seg Neuts % (Manual) 76.0 % (40.0-70.0) H 04/11/21 06:47 Band Neutrophils % 2.0 % 04/11/21 06:47 Lymphocytes % (Manual) 10.0 % (13.4-35.0) L 04/11/21 06:47 Reactive Lymphs % (Man) 0 % 04/11/21 06:47 Monocytes % (Manual) 7.0 % (0.0-7.3) 04/11/21 06:47 Eosinophils % (Manual) 4.0 % (0.0-4.3) 04/11/21 06:47 Basophils % (Manual) 0 % (0.0-1.8) 04/11/21 06:47 Metamyelocytes % 1.0 % 04/11/21 06:47 Myelocytes % 0 % 04/11/21 06:47 Promyelocytes % 0 % 04/11/21 06:47 Blast Cells % 0 % 04/11/21 06:47 Nucleated RBC % Not Reportable 04/11/21 06:47 Seg Neutrophils # 5.8 K/mm3 (1.8-7.7) 03/31/21 13:30 Seg Neutrophils # Man 8.3 K/mm3 (1.8-7.7) H 04/11/21 06:47 Band Neutrophils # 0.2 K/mm3 04/11/21 06:47 Lymphocytes # (Manual) 1.1 K/mm3 (1.2-5.4) L 04/11/21 06:47 Abs React Lymphs (Man) 0.0 K/mm3 04/11/21 06:47 Monocytes # (Manual) 0.8 K/mm3 (0.0-0.8) 04/11/21 06:47 Eosinophils # (Manual) 0.4 K/mm3 (0.0-0.4) 04/11/21 06:47 Basophils # (Manual) 0.0 K/mm3 (0.0-0.1) 04/11/21 06:47 Metamyelocytes # 0.1 K/mm3 04/11/21 06:47 Myelocytes # 0.0 K/mm3 04/11/21 06:47 Promyelocytes # 0.0 K/mm3 04/11/21 06:47 Blast Cells # 0.0 K/mm3 04/11/21 06:47 WBC Morphology Not Reportable 04/11/21 06:47 Hypersegmented Neuts Not Reportable 04/11/21 06:47 Hyposegmented Neuts Not Reportable 04/11/21 06:47 Hypogranular Neuts Not Reportable 04/11/21 06:47 Smudge Cells Not Reportable 04/11/21 06:47 Toxic Granulation 1+ 04/11/21 06:47 Toxic Vacuolation Not Reportable 04/11/21 06:47 Dohle Bodies Not Reportable 04/11/21 06:47 Pelger-Huet Anomaly Not Reportable 04/11/21 06:47 Mely Rods Not Reportable 04/11/21 06:47 Platelet Estimate Consistent w auto 04/11/21 06:47 Clumped Platelets Not Reportable 04/11/21 06:47 Plt Clumps, EDTA Not Reportable 04/11/21 06:47 Large Platelets Not Reportable 04/11/21 06:47 Giant Platelets Not Reportable 04/11/21 06:47 Platelet Satelliting Not Reportable 04/11/21 06:47 Plt Morphology Comment Not Reportable 04/11/21 06:47 RBC Morphology Not Reportable 04/11/21 06:47 Dimorphic RBCs Not Reportable 04/11/21 06:47 Polychromasia Not Reportable 04/11/21 06:47 Hypochromasia Not Reportable 04/11/21 06:47 Poikilocytosis Not Reportable 04/11/21 06:47 Anisocytosis 1+ 04/11/21 06:47 Microcytosis Not Reportable 04/11/21 06:47 Macrocytosis Not Reportable 04/11/21 06:47 Spherocytes Not Reportable 04/11/21 06:47 Pappenheimer Bodies Not Reportable 04/11/21 06:47 Sickle Cells Not Reportable 04/11/21 06:47 Target Cells Not Reportable 04/11/21 06:47 Tear Drop Cells Not Reportable 04/11/21 06:47 Ovalocytes Not Reportable 04/11/21 06:47 Helmet Cells Not Reportable 04/11/21 06:47 [place] Bodies Not Reportable 04/11/21 06:47 [place] Rings Not Reportable 04/11/21 06:47 [place] Cells Not Reportable 04/11/21 06:47 Bite Cells Not Reportable 04/11/21 06:47 Crenated Cell Not Reportable 04/11/21 06:47 Elliptocytes Not Reportable 04/11/21 06:47 Acanthocytes (Spur) Not Reportable 04/11/21 06:47 Rouleaux Not Reportable 04/11/21 06:47 Hemoglobin C Crystals Not Reportable 04/11/21 06:47 Schistocytes Not Reportable 04/11/21 06:47 Malaria parasites Not Reportable 04/11/21 06:47 [place] Bodies Not Reportable 04/11/21 06:47 Hem Pathologist Commnt No 04/11/21 06:47 PT 13.4 Sec. (12.2-14.9) 04/11/21 18:17 INR 0.92 (0.87-1.13) 04/11/21 18:17 APTT 61.1 Sec. (24.2-36.6) H* 04/11/21 18:17 D-Dimer 1359.12 ng/mlDDU (0-234) H 03/17/21 04:40 Heparin Anti-Xa Level 1.03 U.I./ml (0.3-0.7) H 04/12/21 05:11 ABG pH 7.365 pH Units (7.350-7.450) 04/12/21 09:45 POC ABG pCO2 57.4 mmHg (32.0-48.0) H 04/06/21 04:49 ABG pCO2 73.4 mm Hg 04/12/21 09:45 POC ABG pO2 55.1 mmHg (83-108) L 04/06/21 04:49 ABG pO2 70.8 mm Hg (80.0-90.0) L 04/12/21 09:45 POC ABG HCO3 36.2 04/06/21 04:49 ABG HCO3 41.0 mmol/L (20.0-26.0) H 04/12/21 09:45 ABG O2 Saturation 96.3 % (95.0-99.0) 04/12/21 09:45 ABG O2 Content 11.0 (0.0-44) 04/12/21 09:45 POC ABG Base Excess 10.0 04/06/21 04:49 ABG Base Excess 13.7 mmol/L (-2.0-3.0) H 04/12/21 09:45 ABG Hemoglobin 8.3 gm/dl (14.0-18.0) L 04/12/21 09:45 ABG Oxyhemoglobin 87.5 (94-98) L 04/06/21 04:49 ABG Carboxyhemoglobin 1.8 % (0.0-5.0) 04/12/21 09:45 ABG Methemoglobin 0.6 % (0.0-1.5) 04/12/21 09:45 ABG Sodium 134.2 mmol/L (136.0-145.0) L 03/12/21 21:54 ABG Potassium 4.9 mmol/L (3.40-4.50) H 03/12/21 21:54 ABG Chloride 99.0 mmol/L (98-107) 03/12/21 21:54 ABG Glucose 306 mg/dL (65-95) H 03/12/21 21:54 Oxyhemoglobin 94.0 % (95.0-99.0) L 04/12/21 09:45 Carboxyhemoglobin 0.8 (0.5-1.5) 04/06/21 04:49 FiO2 55 % 04/12/21 09:45 FiO2 % 40.0 04/06/21 04:49 Sodium 139 mmol/L (137-145) 04/13/21 04:34 Potassium 4.4 mmol/L (3.6-5.0) 04/13/21 04:34 Chloride 96.6 mmol/L (98-107) L 04/13/21 04:34 Carbon Dioxide 41 mmol/L (22-30) H* D 04/13/21 04:34 Anion Gap 6 mmol/L 04/13/21 04:34 BUN 16 mg/dL (9-20) 04/13/21 04:34 Creatinine 0.3 mg/dL (0.8-1.3) L 04/13/21 04:34 Estimated GFR > 60 ml/min 04/13/21 04:34 BUN/Creatinine Ratio 53 % 04/13/21 04:34 Glucose 171 mg/dL (75-100) H 04/13/21 04:34 POC Glucose 149 mg/dL (70-105) H 04/13/21 11:14 Lactic Acid 1.90 mmol/L (0.7-2.0) 03/08/21 23:51 Calcium 9.5 mg/dL (8.4-10.2) 04/13/21 04:34 Phosphorus 3.50 mg/dL (2.5-4.5) 04/13/21 04:34 Magnesium 2.10 mg/dL (1.7-2.3) 04/13/21 04:34 Ferritin 976.4 ng/mL (30.0-300.0) H 03/15/21 04:00 Total Bilirubin 0.20 mg/dL (0.1-1.2) 03/12/21 08:03 AST 10 units/L (5-40) 03/12/21 08:03 ALT 16 units/L (7-56) 03/12/21 08:03 Alkaline Phosphatase 77 units/L (35-129) 03/12/21 08:03 Lactate Dehydrogenase 630 units/L (91-180) H 03/15/21 06:06 C-Reactive Protein 0.40 mg/dL (0.00-1.30) 03/17/21 04:40 NT-Pro-B Natriuret Pep 1053 pg/mL (0-900) H 03/08/21 20:24 Total Protein 6.0 g/dL (6.3-8.2) L 03/12/21 08:03 Albumin 2.9 g/dL (3.9-5) L 03/12/21 08:03 Albumin/Globulin Ratio 0.9 % 03/12/21 08:03 Triglycerides 305 mg/dL (2-149) H 03/22/21 07:26 Procalcitonin 0.17 ng/mL (<0.15) 04/01/21 07:16 Arterial Blood Glucose 306 mg/dL (65-95) H 03/12/21 21:54 Arterial Blood Ionized Calcium 5.0 mg/dL (4.6-5.3) 03/12/21 21:54 Urine Color Yellow (Yellow) 03/09/21 04:10 Urine Turbidity Slightly-cloudy (Clear) 03/09/21 04:10 Urine pH 5.0 (5.0-7.0) 03/09/21 04:10 Ur Specific [place] 1.041 (1.003-1.030) H 03/09/21 04:10 Urine Protein 100 mg/dl mg/dL (Negative) 03/09/21 04:10 Urine Glucose (UA) Neg mg/dL (Negative) 03/09/21 04:10 Urine Ketones Neg mg/dL (Negative) 03/09/21 04:10 Urine Blood Mod (Negative) 03/09/21 04:10 Urine Nitrite Neg (Negative) 03/09/21 04:10 Urine Bilirubin Neg (Negative) 03/09/21 04:10 Urine Urobilinogen 2.0 mg/dL (<2.0) 03/09/21 04:10 Ur Leukocyte Esterase Neg (Negative) 03/09/21 04:10 Urine WBC (Auto) 4.0 /HPF (0.0-6.0) 03/09/21 04:10 Urine RBC (Auto) 1.0 /HPF (0.0-6.0) 03/09/21 04:10 Urine Bacteria (Auto) 1+ /HPF (Negative) 03/09/21 04:10 Urine Mucus Few /HPF 03/09/21 04:10 Coronavirus (PCR) Positive (Negative) A 03/09/21 08:00 Miscellaneous Test Flexitest 1 03/16/21 13:14 Good/IV: Voiding Method Indwelling Catheter Active Medications - Current Medications Current Medications: Generic Name Dose Route Start Last Admin Trade Name Freq PRN Reason Stop Dose Admin Acetaminophen 650 mg 03/09/21 01:26 04/07/21 21:40 Acetaminophen 325 Mg Tab PO 650 mg Q4H PRN Administration Pain MILD(1-3)/Fever >100.5/RAYO Albuterol 2.5 mg 03/09/21 01:26 03/18/21 21:06 Albuterol 2.5 Mg/3 Ml Nebu IH 2.5 mg Q4HRT PRN Administration Shortness Of Breath Amlodipine Besylate 10 mg 04/11/21 10:00 04/13/21 10:45 Amlodipine 5 Mg Tab PO 10 mg QDAY BLANCA Administration Apixaban 10 mg 04/11/21 22:00 04/13/21 10:44 Apixaban 5 Mg Tab PO 04/18/21 10:01 10 mg Q12HR BLANCA Administration Protocol Apixaban 5 mg 04/18/21 22:00 Apixaban 5 Mg Tab PO Q12HR BLANCA Protocol Arformoterol Tartrate 15 mcg 03/11/21 20:00 04/13/21 07:39 Arformoterol 15 Mcg/2 Ml Nebu IH 15 mcg Q12HRT BLANCA Administration Bisacodyl 10 mg 03/26/21 13:43 03/26/21 13:51 Bisacodyl 10 Mg Rect Supp [place] 10 mg QDAY PRN Administration Constipation Budesonide 0.5 mg 04/06/21 20:00 04/13/21 07:39 Budesonide 0.5 Mg/2 Ml Nebu IH 0.5 mg Q12HRT BLANCA Administration Dextrose 0 ml 03/20/21 10:52 Dextrose 10% *Hypoglycemia IV PRN PRN Hypoglycemia Doxazosin Mesylate 1 mg 04/05/21 22:00 04/13/21 10:45 Doxazosin 1 Mg Tab PO 1 mg BID BLANCA Administration Famotidine 20 mg 03/12/21 22:00 04/13/21 10:45 Famotidine 20 Mg Tab FEEDTUBE 20 mg BID BLANCA Administration Fentanyl 1 applic 03/31/21 15:00 04/12/21 10:31 Fentanyl 75 Mcg/Hr Patch 72hr TD 1 applic Q3D BLANCA Administration Furosemide 20 mg 04/14/21 17:00 Furosemide 20 Mg/2 Ml Inj IV 04/14/21 17:01 ONCE ONE Hydralazine HCl 50 mg 03/23/21 14:26 04/13/21 06:03 Hydralazine 25 Mg Tab PO 50 mg Q8HR BLANCA Administration Insulin Glargine 18 units 04/07/21 22:00 04/12/21 21:58 Insulin Glargine 100 Units/Ml SUB-Q 18 units QHS BLANCA Administration Insulin Human Lispro 0 unit 03/11/21 18:00 04/13/21 05:29 Insulin Lispro 100 Unit/Ml SUB-Q Not Given Q6HR [facility] Protocol Metoprolol Tartrate 12.5 mg 03/21/21 22:00 04/13/21 10:46 Metoprolol Tartrate 25 Mg Tab PO 12.5 mg BID BLANCA Administration Ondansetron HCl 4 mg 03/09/21 01:26 Ondansetron 4 Mg/2 Ml Inj IV Q8H PRN Nausea And Vomiting Oxycodone HCl 5 mg 04/13/21 12:34 Oxycodone 5 Mg Tab PO Q6HR PRN Pain, Moderate (4-6) Phenyleph/Shark Oil/Min Oil/Petrol 1 applic 03/22/21 17:35 04/06/21 04:04 Pe/Mo/Pet,Wh 10 Applic/28 Gm Tube [place] 1 applic Q6HR PRN Administration Hemorrhoids Polyethylene Glycol 17 gm 04/02/21 10:00 04/13/21 10:46 Polyethylene Glycol 3350 17 Gm Powder FEEDTUBE 17 gm QDAY BLANCA Administration Quetiapine Fumarate 50 mg 04/13/21 22:00 Quetiapine 25 Mg Tab PO QHS BLANCA Senna/Docusate Sodium 2 tab 04/02/21 10:00 04/13/21 10:44 Sennosides/Docusate Sodium 8.6/50 Mg Tab FEEDTUBE 2 tab BID BLANCA Administration Sodium Chloride 10 ml 03/09/21 10:00 04/13/21 10:47 Sodium Chloride 0.9% 10 Ml Flush Syringe IV 10 ml BID BLANCA Administration Sodium Chloride 10 ml 03/09/21 01:26 04/10/21 21:07 Sodium Chloride 0.9% 10 Ml Flush Syringe IV 10 ml PRN PRN Administration LINE FLUSH Sodium Chloride 10 ml 03/20/21 09:48 Sodium Chloride 0.9% 50 Ml Ivpb IV PRN PRN FLUSH Nutrition/Malnutrition Assess - Dietary Evaluation Nutrition/Malnutrition Findings: Nutrition Notes Start: 03/09/21 08:49 Freq: Status: Active Protocol: Document 04/07/21 14:55 NHALL (Rec: 04/07/21 14:58 [facility] [email or web address]) Nutrition Notes Initial or Follow up Reassessment Current Diagnosis Diabetes,Sepsis,Hypertension, Respiratory Failure Other Pertinent Diagnosis COVID-19, Bilateral Pneumonia. Current Diet TF-Glucerna 1.2 at 70 ml/hr Labs/Tests BG 216 Pertinent Medications Heparin gtt, Miralax, Senokot Height 5 ft 11 in Weight 122 kg [place] Body Weight (kg) 78.18 BMI 37.5 Weight Status Obese Subjective/Other Information Pt remains on vent support. Per RN, pt tolerating TF at goal rate. Percent of energy/protein needs met: 82% energy 78% pro Burn Absent Trauma Absent #1 Nutrition Diagnosis Inadequate oral intake Diagnosis Progress(for reassessment Continues documentation) Is patient on ventilator? Yes Is Patient Ambulatory and/or Out of Bed No [facility] [phone] Calculation Used for Recommendations 70-80% energy needs Additional Notes Energy needs: 5053-0735 kcal/ day Pro needs 1.3g/kg adjBW: 130g/ day Fluid needs 1ml/kcal Nutrition Intervention Nutrition Support: Continue Glucerna 1.2 at 70ml/ hr with 110ml water flush q4h. Kcal 2,016 Protein (gm) 101 Carbohydrates (gm) 192 Fat (gm) 101 Fluid (mL) 1,352 Fiber (gm) 27 Goal #1 TF tolerance Goal #2 TF to meet at least 75% energy and pro needs Follow-Up By: 04/14/21 Additional Comments F/U: stable TF, vent status, wt <ARABELLA CASTILLO - Last Filed: 04/14/21 07:18> Assessment and Plan Assessment and plan: I saw and evaluated the patient. I agree with the findings and the plan of care as documented in the Nurse Practitioner's~note, with the following corrections and additions. Hospitalist Physical - Constitutional Vitals: Temp Pulse Resp BP Pulse Ox 98.8 F 105 H 26 H 125/60 98 04/14/21 03:29 04/14/21 05:24 04/14/21 05:00 04/14/21 05:24 04/14/21 05:00 Results - Labs CBC & Chem 7: 04/14/21 04:32 04/14/21 04:32 Labs: Laboratory Last Values WBC 13.8 K/mm3 (4.5-11.0) H 04/14/21 04:32 RBC 2.64 M/mm3 (3.65-5.03) L 04/14/21 04:32 Hgb 8.0 gm/dl (11.8-15.2) L 04/14/21 04:32 Hct 24.1 % (35.5-45.6) L 04/14/21 04:32 MCV 92 fl (84-94) 04/14/21 04:32 MCH 30 pg (28-32) 04/14/21 04:32 MCHC 33 % (32-34) 04/14/21 04:32 RDW 16.1 % (13.2-15.2) H 04/14/21 04:32 Plt Count 436 K/mm3 (140-440) 04/14/21 04:32 Lymph % (Auto) 7.6 % (13.4-35.0) L 03/31/21 13:30 [place] % (Auto) 9.5 % (0.0-7.3) H 03/31/21 13:30 Eos % (Auto) 4.1 % (0.0-4.3) 03/31/21 13:30 Baso % (Auto) 0.5 % (0.0-1.8) 03/31/21 13:30 Lymph # (Auto) 0.6 K/mm3 (1.2-5.4) L 03/31/21 13:30 [place] # (Auto) 0.7 K/mm3 (0.0-0.8) 03/31/21 13:30 Eos # (Auto) 0.3 K/mm3 (0.0-0.4) 03/31/21 13:30 Baso # (Auto) 0.0 K/mm3 (0.0-0.1) 03/31/21 13:30 Add Manual Diff Complete 04/11/21 06:47 Total Counted 100 04/11/21 06:47 Seg Neutrophils % 78.3 % (40.0-70.0) H 03/31/21 13:30 Seg Neuts % (Manual) 76.0 % (40.0-70.0) H 04/11/21 06:47 Band Neutrophils % 2.0 % 04/11/21 06:47 Lymphocytes % (Manual) 10.0 % (13.4-35.0) L 04/11/21 06:47 Reactive Lymphs % (Man) 0 % 04/11/21 06:47 Monocytes % (Manual) 7.0 % (0.0-7.3) 04/11/21 06:47 Eosinophils % (Manual) 4.0 % (0.0-4.3) 04/11/21 06:47 Basophils % (Manual) 0 % (0.0-1.8) 04/11/21 06:47 Metamyelocytes % 1.0 % 04/11/21 06:47 Myelocytes % 0 % 04/11/21 06:47 Promyelocytes % 0 % 04/11/21 06:47 Blast Cells % 0 % 04/11/21 06:47 Nucleated RBC % Not Reportable 04/11/21 06:47 Seg Neutrophils # 5.8 K/mm3 (1.8-7.7) 03/31/21 13:30 Seg Neutrophils # Man 8.3 K/mm3 (1.8-7.7) H 04/11/21 06:47 Band Neutrophils # 0.2 K/mm3 04/11/21 06:47 Lymphocytes # (Manual) 1.1 K/mm3 (1.2-5.4) L 04/11/21 06:47 Abs React Lymphs (Man) 0.0 K/mm3 04/11/21 06:47 Monocytes # (Manual) 0.8 K/mm3 (0.0-0.8) 04/11/21 06:47 Eosinophils # (Manual) 0.4 K/mm3 (0.0-0.4) 04/11/21 06:47 Basophils # (Manual) 0.0 K/mm3 (0.0-0.1) 04/11/21 06:47 Metamyelocytes # 0.1 K/mm3 04/11/21 06:47 Myelocytes # 0.0 K/mm3 04/11/21 06:47 Promyelocytes # 0.0 K/mm3 04/11/21 06:47 Blast Cells # 0.0 K/mm3 04/11/21 06:47 WBC Morphology Not Reportable 04/11/21 06:47 Hypersegmented Neuts Not Reportable 04/11/21 06:47 Hyposegmented Neuts Not Reportable 04/11/21 06:47 Hypogranular Neuts Not Reportable 04/11/21 06:47 Smudge Cells Not Reportable 04/11/21 06:47 Toxic Granulation 1+ 04/11/21 06:47 Toxic Vacuolation Not Reportable 04/11/21 06:47 Dohle Bodies Not Reportable 04/11/21 06:47 Pelger-Huet Anomaly Not Reportable 04/11/21 06:47 Mely Rods Not Reportable 04/11/21 06:47 Platelet Estimate Consistent w auto 04/11/21 06:47 Clumped Platelets Not Reportable 04/11/21 06:47 Plt Clumps, EDTA Not Reportable 04/11/21 06:47 Large Platelets Not Reportable 04/11/21 06:47 Giant Platelets Not Reportable 04/11/21 06:47 Platelet Satelliting Not Reportable 04/11/21 06:47 Plt Morphology Comment Not Reportable 04/11/21 06:47 RBC Morphology Not Reportable 04/11/21 06:47 Dimorphic RBCs Not Reportable 04/11/21 06:47 Polychromasia Not Reportable 04/11/21 06:47 Hypochromasia Not Reportable 04/11/21 06:47 Poikilocytosis Not Reportable 04/11/21 06:47 Anisocytosis 1+ 04/11/21 06:47 Microcytosis Not Reportable 04/11/21 06:47 Macrocytosis Not Reportable 04/11/21 06:47 Spherocytes Not Reportable 04/11/21 06:47 Pappenheimer Bodies Not Reportable 04/11/21 06:47 Sickle Cells Not Reportable 04/11/21 06:47 Target Cells Not Reportable 04/11/21 06:47 Tear Drop Cells Not Reportable 04/11/21 06:47 Ovalocytes Not Reportable 04/11/21 06:47 Helmet Cells Not Reportable 04/11/21 06:47 [place] Bodies Not Reportable 04/11/21 06:47 [place] Rings Not Reportable 04/11/21 06:47 [place] Cells Not Reportable 04/11/21 06:47 Bite Cells Not Reportable 04/11/21 06:47 Crenated Cell Not Reportable 04/11/21 06:47 Elliptocytes Not Reportable 04/11/21 06:47 Acanthocytes (Spur) Not Reportable 04/11/21 06:47 Rouleaux Not Reportable 04/11/21 06:47 Hemoglobin C Crystals Not Reportable 04/11/21 06:47 Schistocytes Not Reportable 04/11/21 06:47 Malaria parasites Not Reportable 04/11/21 06:47 [place] Bodies Not Reportable 04/11/21 06:47 Hem Pathologist Commnt No 04/11/21 06:47 PT 13.4 Sec. (12.2-14.9) 04/11/21 18:17 INR 0.92 (0.87-1.13) 04/11/21 18:17 APTT 61.1 Sec. (24.2-36.6) H* 04/11/21 18:17 D-Dimer 1359.12 ng/mlDDU (0-234) H 03/17/21 04:40 Heparin Anti-Xa Level 1.03 U.I./ml (0.3-0.7) H 04/12/21 05:11 ABG pH 7.365 pH Units (7.350-7.450) 04/12/21 09:45 POC ABG pCO2 57.4 mmHg (32.0-48.0) H 04/06/21 04:49 ABG pCO2 73.4 mm Hg 04/12/21 09:45 POC ABG pO2 55.1 mmHg (83-108) L 04/06/21 04:49 ABG pO2 70.8 mm Hg (80.0-90.0) L 04/12/21 09:45 POC ABG HCO3 36.2 04/06/21 04:49 ABG HCO3 41.0 mmol/L (20.0-26.0) H 04/12/21 09:45 ABG O2 Saturation 96.3 % (95.0-99.0) 04/12/21 09:45 ABG O2 Content 11.0 (0.0-44) 04/12/21 09:45 POC ABG Base Excess 10.0 04/06/21 04:49 ABG Base Excess 13.7 mmol/L (-2.0-3.0) H 04/12/21 09:45 ABG Hemoglobin 8.3 gm/dl (14.0-18.0) L 04/12/21 09:45 ABG Oxyhemoglobin 87.5 (94-98) L 04/06/21 04:49 ABG Carboxyhemoglobin 1.8 % (0.0-5.0) 04/12/21 09:45 ABG Methemoglobin 0.6 % (0.0-1.5) 04/12/21 09:45 ABG Sodium 134.2 mmol/L (136.0-145.0) L 03/12/21 21:54 ABG Potassium 4.9 mmol/L (3.40-4.50) H 03/12/21 21:54 ABG Chloride 99.0 mmol/L (98-107) 03/12/21 21:54 ABG Glucose 306 mg/dL (65-95) H 03/12/21 21:54 Oxyhemoglobin 94.0 % (95.0-99.0) L 04/12/21 09:45 Carboxyhemoglobin 0.8 (0.5-1.5) 04/06/21 04:49 FiO2 55 % 04/12/21 09:45 FiO2 % 40.0 04/06/21 04:49 Sodium 138 mmol/L (137-145) 04/14/21 04:32 Potassium 4.9 mmol/L (3.6-5.0) 04/14/21 04:32 Chloride 95.5 mmol/L (98-107) L 04/14/21 04:32 Carbon Dioxide 38 mmol/L (22-30) H 04/14/21 04:32 Anion Gap 9 mmol/L 04/14/21 04:32 BUN 18 mg/dL (9-20) 04/14/21 04:32 Creatinine 0.4 mg/dL (0.8-1.3) L 04/14/21 04:32 Estimated GFR > 60 ml/min 04/14/21 04:32 BUN/Creatinine Ratio 45 % 04/14/21 04:32 Glucose 141 mg/dL (75-100) H 04/14/21 04:32 POC Glucose 140 mg/dL (70-105) H 04/14/21 05:18 Lactic Acid 1.90 mmol/L (0.7-2.0) 03/08/21 23:51 Calcium 9.6 mg/dL (8.4-10.2) 04/14/21 04:32 Phosphorus 2.90 mg/dL (2.5-4.5) 04/14/21 04:32 Magnesium 2.20 mg/dL (1.7-2.3) 04/14/21 04:32 Ferritin 976.4 ng/mL (30.0-300.0) H 03/15/21 04:00 Total Bilirubin 0.20 mg/dL (0.1-1.2) 03/12/21 08:03 AST 10 units/L (5-40) 03/12/21 08:03 ALT 16 units/L (7-56) 03/12/21 08:03 Alkaline Phosphatase 77 units/L (35-129) 03/12/21 08:03 Lactate Dehydrogenase 630 units/L (91-180) H 03/15/21 06:06 C-Reactive Protein 0.40 mg/dL (0.00-1.30) 03/17/21 04:40 NT-Pro-B Natriuret Pep 1053 pg/mL (0-900) H 03/08/21 20:24 Total Protein 6.0 g/dL (6.3-8.2) L 03/12/21 08:03 Albumin 2.9 g/dL (3.9-5) L 03/12/21 08:03 Albumin/Globulin Ratio 0.9 % 03/12/21 08:03 Triglycerides 305 mg/dL (2-149) H 03/22/21 07:26 Procalcitonin 0.17 ng/mL (<0.15) 04/01/21 07:16 Arterial Blood Glucose 306 mg/dL (65-95) H 03/12/21 21:54 Arterial Blood Ionized Calcium 5.0 mg/dL (4.6-5.3) 03/12/21 21:54 Urine Color Yellow (Yellow) 03/09/21 04:10 Urine Turbidity Slightly-cloudy (Clear) 03/09/21 04:10 Urine pH 5.0 (5.0-7.0) 03/09/21 04:10 Ur Specific [place] 1.041 (1.003-1.030) H 03/09/21 04:10 Urine Protein 100 mg/dl mg/dL (Negative) 03/09/21 04:10 Urine Glucose (UA) Neg mg/dL (Negative) 03/09/21 04:10 Urine Ketones Neg mg/dL (Negative) 03/09/21 04:10 Urine Blood Mod (Negative) 03/09/21 04:10 Urine Nitrite Neg (Negative) 03/09/21 04:10 Urine Bilirubin Neg (Negative) 03/09/21 04:10 Urine Urobilinogen 2.0 mg/dL (<2.0) 03/09/21 04:10 Ur Leukocyte Esterase Neg (Negative) 03/09/21 04:10 Urine WBC (Auto) 4.0 /HPF (0.0-6.0) 03/09/21 04:10 Urine RBC (Auto) 1.0 /HPF (0.0-6.0) 03/09/21 04:10 Urine Bacteria (Auto) 1+ /HPF (Negative) 03/09/21 04:10 Urine Mucus Few /HPF 03/09/21 04:10 Coronavirus (PCR) Positive (Negative) A 03/09/21 08:00 Miscellaneous Test Flexitest 1 03/16/21 13:14 Good/IV: Voiding Method Indwelling Catheter Active Medications - Current Medications Current Medications: Generic Name Dose Route Start Last Admin Trade Name Freq PRN Reason Stop Dose Admin Acetaminophen 650 mg 03/09/21 01:26 04/14/21 06:25 Acetaminophen 325 Mg Tab PO 650 mg Q4H PRN Administration Pain MILD(1-3)/Fever >100.5/RAYO Albuterol 2.5 mg 03/09/21 01:26 03/18/21 21:06 Albuterol 2.5 Mg/3 Ml Nebu IH 2.5 mg Q4HRT PRN Administration Shortness Of Breath Amlodipine Besylate 10 mg 04/11/21 10:00 04/13/21 10:45 Amlodipine 5 Mg Tab PO 10 mg QDAY BLANCA Administration Apixaban 10 mg 04/11/21 22:00 04/13/21 21:34 Apixaban 5 Mg Tab PO 04/18/21 10:01 10 mg Q12HR BLANCA Administration Protocol Apixaban 5 mg 04/18/21 22:00 Apixaban 5 Mg Tab PO Q12HR BLANCA Protocol Arformoterol Tartrate 15 mcg 03/11/21 20:00 04/13/21 20:07 Arformoterol 15 Mcg/2 Ml Nebu IH 15 mcg Q12HRT BLANCA Administration Bisacodyl 10 mg 03/26/21 13:43 03/26/21 13:51 Bisacodyl 10 Mg Rect Supp [place] 10 mg QDAY PRN Administration Constipation Budesonide 0.5 mg 04/06/21 20:00 04/13/21 20:07 Budesonide 0.5 Mg/2 Ml Nebu IH 0.5 mg Q12HRT BLANCA Administration Dextrose 0 ml 03/20/21 10:52 Dextrose 10% *Hypoglycemia IV PRN PRN Hypoglycemia Doxazosin Mesylate 1 mg 04/05/21 22:00 04/13/21 21:35 Doxazosin 1 Mg Tab PO 1 mg BID BLANCA Administration Famotidine 20 mg 03/12/21 22:00 04/13/21 21:37 Famotidine 20 Mg Tab FEEDTUBE 20 mg BID BLANCA Administration Fentanyl 1 applic 03/31/21 15:00 04/12/21 10:31 Fentanyl 75 Mcg/Hr Patch 72hr TD 1 applic Q3D BLANCA Administration Furosemide 20 mg 04/14/21 17:00 Furosemide 20 Mg/2 Ml Inj IV 04/14/21 17:01 ONCE ONE Hydralazine HCl 50 mg 03/23/21 14:26 04/14/21 05:24 Hydralazine 25 Mg Tab PO 50 mg Q8HR [facility] Administration Insulin Glargine 18 units 04/07/21 22:00 04/13/21 21:37 Insulin Glargine 100 Units/Ml SUB-Q 18 units QHS [facility] Administration Insulin Human Lispro 0 unit 03/11/21 18:00 04/14/21 05:24 Insulin Lispro 100 Unit/Ml SUB-Q Not Given Q6HR [facility] Protocol Metoprolol Tartrate 12.5 mg 03/21/21 22:00 04/13/21 21:36 Metoprolol Tartrate 25 Mg Tab PO 12.5 mg BID BLANCA Administration Ondansetron HCl 4 mg 03/09/21 01:26 04/13/21 16:17 Ondansetron 4 Mg/2 Ml Inj IV 4 mg Q8H PRN Administration Nausea And Vomiting Oxycodone HCl 5 mg 04/13/21 12:34 04/13/21 16:17 Oxycodone 5 Mg Tab PO 5 mg Q6HR PRN Administration Pain, Moderate (4-6) Phenyleph/Shark Oil/Min Oil/Petrol 1 applic 03/22/21 17:35 04/06/21 04:04 Pe/Mo/Pet,Wh 10 Applic/28 Gm Tube [place] 1 applic Q6HR PRN Administration Hemorrhoids Polyethylene Glycol 17 gm 04/02/21 10:00 04/13/21 10:46 Polyethylene Glycol 3350 17 Gm Powder FEEDTUBE 17 gm QDAY BLANCA Administration Quetiapine Fumarate 50 mg 04/13/21 22:00 04/13/21 21:34 Quetiapine 25 Mg Tab PO 50 mg QHS BLANCA Administration Senna/Docusate Sodium 2 tab 04/02/21 10:00 04/13/21 21:32 Sennosides/Docusate Sodium 8.6/50 Mg Tab FEEDTUBE 2 tab BID BLANCA Administration Sodium Chloride 10 ml 03/09/21 10:00 04/13/21 21:39 Sodium Chloride 0.9% 10 Ml Flush Syringe IV 10 ml BID BLANCA Administration Sodium Chloride 10 ml 03/09/21 01:26 04/10/21 21:07 Sodium Chloride 0.9% 10 Ml Flush Syringe IV 10 ml PRN PRN Administration LINE FLUSH Sodium Chloride 10 ml 03/20/21 09:48 Sodium Chloride 0.9% 50 Ml Ivpb IV PRN PRN FLUSH Nutrition/Malnutrition Assess - Dietary Evaluation Nutrition/Malnutrition Findings: Nutrition Notes Start: 03/09/21 08:49 Freq: Status: Active Protocol: Document 04/07/21 14:55 [facility] (Rec: 04/07/21 14:58 [facility] [id number]) Nutrition Notes Initial or Follow up Reassessment Current Diagnosis Diabetes,Sepsis,Hypertension, Respiratory Failure Other Pertinent Diagnosis COVID-19, Bilateral Pneumonia. Current Diet TF-Glucerna 1.2 at 70 ml/hr Labs/Tests BG 216 Pertinent Medications Heparin gtt, Miralax, Senokot Height 5 ft 11 in Weight 122 kg [place] Body Weight (kg) 78.18 BMI 37.5 Weight Status Obese Subjective/Other Information Pt remains on vent support. Per RN, pt tolerating TF at goal rate. Percent of energy/protein needs met: 82% energy 78% pro Burn Absent Trauma Absent #1 Nutrition Diagnosis Inadequate oral intake Diagnosis Progress(for reassessment Continues documentation) Is patient on ventilator? Yes Is Patient Ambulatory and/or Out of Bed No REE-([place]-confined to bed) 2889.140 Calculation Used for Recommendations 70-80% energy needs Additional Notes Energy needs: 4446-7391 kcal/ day Pro needs 1.3g/kg adjBW: 130g/ day Fluid needs 1ml/kcal Nutrition Intervention Nutrition Support: Continue Glucerna 1.2 at 70ml/ hr with 110ml water flush q4h. Kcal 2,016 Protein (gm) 101 Carbohydrates (gm) 192 Fat (gm) 101 Fluid (mL) 1,352 Fiber (gm) 27 Goal #1 TF tolerance Goal #2 TF to meet at least 75% energy and pro needs Follow-Up By: 04/14/21 Additional Comments F/U: stable TF, vent status, wt
--- NOTE | 2021-04-13 13:54 | Progress Note ---
Assessment and Plan Cultures: SARS CoV2 PCR: positive 03/08/2021 blood culture: no growth 03/10/2021 sputum culture: Usual respiratory marlyn 03/16/2021 blood culture: no growth 03/18/2021 sputum culture: Stenotrophomonas 03/31/2021 Blood culture: no growth 03/31/2021 tracheal aspirate: usual resp marlyn A/P: 61-year-old male with diabetes, hypertension admitted to the hospital with complaints of shortness of breath and feeling weak for the last 1 week: #Sepsis secondary to bilateral pneumonia: secondary to COVID-19. Completed remd esivir, s/p Actemra, steroids. Completed abx for bacterial pneumonia, Stenotrophomonas. #Acute hypoxic respiratory failure: s/p trach and PEG. #DM #HTN #Acute DVT in RUE Recs: -continue off abx Sanigta Nicole MD, FACP, [facility] O: [phone] F: [phone] Subjective Date of service: 04/13/21 Principal diagnosis: COVID-19 infection; DM II; Bilateral pneumonia; Obesity; HTN Interval history: No fever. T-max 100.1 F. Remains on the vent via trach. Objective - Exam Narrative Exam: Physical Exam Constitutional: on the vent Head, Ears, Nose: Normocephalic, atraumatic. External ears, nose normal Eyes: Conjunctivae/corneas clear. No icterus. Neck: trach + Cardiovascular: S1, S2 + Respiratory: AE fair GI: Soft, bowel sounds +, PEG + Musculoskeletal: edema + Skin: No rash or abscess Hem/Lymphatic: No palpable cervical or supraclavicular nodes. No lymphangitis Psych: no agitation Neurological: on the vent, exam limited - Constitutional Vitals: Vital Signs Temp Pulse Resp BP Pulse Ox 100.1 F H 103 H 20 136/73 100 04/13/21 11:38 04/13/21 12:00 04/13/21 12:00 04/13/21 11:34 04/13/21 12:00 Temperature -Last 24 Hours Temperature 100.1 F Temperature 98.0 F Temperature 99.5 F Temperature 98 F Temperature 98.1 F Temperature 98.1 F - Labs CBC & Chem 7: 04/13/21 04:34 04/13/21 04:34 Labs: Abnormal lab results 04/12/21 04/12/21 04/12/21 Range/Units 15:56 21:55 23:25 WBC (4.5-11.0) K/mm3 RBC (3.65-5.03) M/mm3 Hgb (11.8-15.2) gm/dl Hct (35.5-45.6) % RDW (13.2-15.2) % Plt Count (140-440) K/mm3 Chloride (98-107) mmol/L Carbon Dioxide (22-30) mmol/L Creatinine (0.8-1.3) mg/dL Glucose (75-100) mg/dL POC Glucose 146 H 142 H 170 H (70-105) mg/dL 04/13/21 04/13/21 04/13/21 Range/Units 04:34 04:34 05:17 WBC 12.5 H (4.5-11.0) K/mm3 RBC 2.97 L (3.65-5.03) M/mm3 Hgb 8.9 L (11.8-15.2) gm/dl Hct 27.3 L (35.5-45.6) % RDW 16.4 H (13.2-15.2) % Plt Count 470 H (140-440) K/mm3 Chloride 96.6 L (98-107) mmol/L Carbon Dioxide 41 H* D (22-30) mmol/L Creatinine 0.3 L (0.8-1.3) mg/dL Glucose 171 H (75-100) mg/dL POC Glucose 141 H (70-105) mg/dL 04/13/21 Range/Units 11:14 WBC (4.5-11.0) K/mm3 RBC (3.65-5.03) M/mm3 Hgb (11.8-15.2) gm/dl Hct (35.5-45.6) % RDW (13.2-15.2) % Plt Count (140-440) K/mm3 Chloride (98-107) mmol/L Carbon Dioxide (22-30) mmol/L Creatinine (0.8-1.3) mg/dL Glucose (75-100) mg/dL POC Glucose 149 H (70-105) mg/dL
[2021-04-13] MEDS: ONDANSETRON 4 MG/2 ML INJ IV PRN (16:17)
[2021-04-13] MEDS: oxyCODONE 5 MG TAB PO PRN (16:17)
[2021-04-13] MEDS: INSULIN GLARGINE 100 UNITS/ML SUB-Q SCH (21:37)
[2021-04-13] MEDS ORDERED: QUEtiapine 25 MG TAB PO SCH (22:00)
[2021-04-14] MEDS: INSULIN LISPRO 100 UNIT/ML SUB-Q SCH ×4 (00:28→18:08)
[2021-04-14] MEDS: hydrALAZINE 25 MG TAB PO SCH ×3 (05:24→21:33)
[2021-04-14 05:36] LABS: Hematocrit 24.1 % (35.5-45.6); Mean Corpuscular HGB Conc 33 % (32-34); Mean Corpuscular Volume 92 fl (84-94); Platelet Count 436 K/mm3 (140-440); Red Blood Count 2.64 M/mm3 (3.65-5.03); Red Cell Distribution Width 16.1 % (13.2-15.2)
[2021-04-14 05:47] LABS: Blood Urea Nitrogen 18 mg/dL (9-20); Calcium 9.6 mg/dL (8.4-10.2); Hemolysis Index 1
[2021-04-14 05:48] LABS: BUN/Creatinine Ratio 45
[2021-04-14] MEDS: ACETAMINOPHEN 325 MG TAB PO PRN ×2 (06:25→09:41)
[2021-04-14] MEDS: BUDESONIDE 0.5 MG/2 ML NEBU IH SCH ×2 (08:09→21:19)
[2021-04-14] MEDS: ARFORMOTEROL 15 MCG/2 ML NEBU IH SCH ×2 (08:09→21:19)
[2021-04-14] MEDS: FUROSEMIDE 20 MG/2 ML INJ IV SCH ×2 (08:40→14:30)
[2021-04-14] MEDS: amLODIPine 5 MG TAB PO SCH (09:40)
[2021-04-14] MEDS: METOPROLOL TARTRATE 25 MG TAB PO SCH ×2 (09:40→21:35)
[2021-04-14] MEDS: DOXAZOSIN 1 MG TAB PO SCH ×2 (09:40→21:36)
[2021-04-14] MEDS: FAMOTIDINE 20 MG TAB FEEDTUBE SCH ×2 (09:41→22:19)
[2021-04-14] MEDS: SENNOSIDES/DOCUSATE SODIUM 8.6/50 MG TAB FEEDTUBE SCH ×2 (09:41→21:33)
[2021-04-14] MEDS: POLYETHYLENE GLYCOL 3350 17 GM POWDER FEEDTUBE SCH (09:41)
[2021-04-14] MEDS: APIXABAN 5 MG TAB PO SCH ×2 (09:41→21:40)
--- NOTE | 2021-04-14 11:42 | Progress Note ---
<DEBBY ELLISON - Last Filed: 04/14/21 16:42> Assessment and Plan Assessment and plan: This is a 61-year-old male with past medical history of HTN and DM admitted for sepsis and acute hypoxic respiratory failure 2/2 COVID pneumonia requiring ventilatory support. Hospital Course to Date: 03/09: The patient was seen and evaluated today, and he was found to be hemodynamically stable. The patient is currently on BiPAP for possible COVID-19 pneumonia. He was started on Lovenox 1mg/kg for DVT ppx in the setting of d- dimer > 10,000. Infectious Disease was consulted. The patient is pending a TTE. 03/10: No acute events overnight, patient was intubated in the afternoon transferred to ICU 03/11: Patient started on Lantus, free water flushes increased, propofol drip resumed and oral antihypertensive added. 03/12: lantus increased, k at 5, will monitor. I updated his family and his stated that he is not vaccinated. He does have HTN and she will call the RN to update home medications. She did say he takes bystolic and amlopine. She inquired about ventilator and lab work. She had no further questions. 03/13: KVNG overnight. Patient remains hyperglycemic, basal insulin adjusted and increased to Q12hrs. Patient is overall net positive since admit X1 dose of IV lasix, repeat BMP this afternoon. 03/14: Failed SAT this am due to increase agitation, tachycardia and hypertension. Remains on propofol and fentanyl gtt. Hyperkalemia treated with PO kayaxalate. Patient responded to IV lasix yesterday additional dose again today for a net negative balance. Repeat BMP this afternoon. Insulin adjusted for hyperglycemia. 03/15: Remains encephalopathic, not following commansd. Orders placed for CT head/Brain and Neuro consulted. Rectal bleeding subsided, most likely due to hemorrhoids. H&H is stable will continue to monitor. Kayaxexalate for high K, repeat labs 4 to 6hrs post treatment. 03/16: Still agiated this am, CT head with no acute Abn. CXR and ABG noted- evolving pna and worsening hypoxia, now with low grade fevers. Sputum culture ordered, IV Abx added, ID on cosult. 03/17: This am ABG noted, hypoxia improved. Continue to wean FiO2 as tolerated. Still with low grade fevers, on IV Abx per ID. Still with periods of confusion despite sedation, seroquel increased. F/u CXR in the am 03/18: still very agitated especially when off sedation, with hypertension and tachycardia. Continue sedation for RASS -2, PRN antihypertensive for SPB greater than 160. This febrile this am, continue current IV abx per ID 03/19: Patient afebrile overnight, continue IV Abx per ID. ABG also improved this am, continue to wean FIO2 as tolerated. PRN antihypertensive for hypertension. 03/20: Hyperkalemia treated with Kayexalate, Good discontinued, vancomycin and cefepime stopped started Bactrim by ID. Steroid taper started. 03/21: BB started for hypertension, Seroquel increased for agitation and Librium started no acute events reported overnight. [facility] made vent changes 03/22: Adjustment to anxiolytics, respiratory rate on ventilator per [facility]. Patient noted to have bleeding hemorrhoids with clot, requested RN to remove bowel management system and will order Preparation H. 03/23: Given no confirmed DVT or PE (only superficial thrombus noted on Dopplers) therapeutic Lovenox changed to prophylactic Lovenox. Started on doxazosin to help with retention. Consulted surgery for tracheostomy and propofol discontinued. 03/24: Surgery consult completed, patient changed to prophylaxis anticoagulation, started on doxazosin yesterday with plans to remove Good catheter in 48 hours. Patient with slight hypokalemia today and given Kayexalate. No acute events reported overnight. 03/25: No acute events reported overnight. Patient remains on fentanyl drip and on CPAP trial this morning. 03/26: no acute events reported overnight. placed on CPAP this AM, remains on fent/librium. scheduled for trach/peg this week. 03/27: Hypoglycemic this am, will decreased lantus to Qhs. Plan for possible Trach and Peg by Gen Surg this am. Case management to arrange possible LTAC placement 03/28: KVNG overnight. Tolerating PST this am. Plan for trach and PEG tomorrow by Gen. Surgery, NPO after midnight. 03/29: No significant changes overnight. Plan for trach and Peg today. Case management to arrange possible LTAC placement 03/30. S/p Trach and PEG, no complications noted. High residual yesterday despite NPO status, reglan added X2 days. Per RN no residual this am, patient is tolerating TF. Continue to advance TF as tolerated. Norvasc added for hypertension. Pitting edema also appreciated, some diuretic might be beneficial, will d/w CCM. Continue daily PST as tolerated. 03/31: Patient remains on the vent still on fentanyl gtt with periods of agitation. PRN analgesia added, plan to start weaning off fentanyl gtt. Febrile this am, completed IV abx course. Will panculture for now, ID is also following. 04/01: Still febrile overnight, cultures result pending, continue IV ABx per ID. Failed PST this am. Continue daily PST and vent wean per [facility]. Case management to arrange possible placement. 04/02: KVNG overnight. Fevers improved overnight, continue to follow cultures data, IV ABx per ID. Continue daily PST and wean vent as per [facility].\ 04/03: Given low procalcitonin, unchanged CXR and cultures with no growth cefepime was discontinued by ID. LTAC evaluation ongoing. No acute events reported overnight. 04/04: IV Lasix stopped today, Seroquel taper started, fentanyl drip on hold and steroids stopped. Pressure support trial again today. 04/05: Patient had to be restarted on fentanyl drip therefore Seroquel was increased back to 250 twice daily and he was started on scheduled narcotics and efforts to wean fentanyl drip. Doxazosin was increased to twice daily as patient still had retention issues on doxazosin once a day. Patient was denied LTAC placement. CPAP trial today. 04/06: Right upper extremity ultrasound obtained due to edema which showed DVT. Patient started on heparin drip. Overnight patient had hypoxia, tachypnea, tachycardia, hypotension and FiO2 was increased to 100%. RT titrating as tolerated. Plan was to start T-piece trials today. Patient has been denied LTAC placement. 04/07: BLE dopplar, continue lasix per [facility], CXR in AM. Increase in fio2 overnight d/t desaturation. Wean FiO2 as tolerated. 04/08: Patient remains on 65% FiO2, s/p Lasix for 3 doses, hyperkalemia noted today and medically treated. [facility] plans to consult heme/onc once FiO2 decreased. Remains on heparin gtt 04/09: No acute events reported overnight, possible heme-onc consult on Saturday or Saturday regarding upper extremity DVT, wean FiO2 as tolerated. Repeat CT head on Monday 04/10: Patient mentation is unchanged, repeat CT head today. Remains on heparin gtt per protocol. Continue daily PST as tolerated. 04/11: Increased work of breathing and high RR overnight, vent FiO2 increased to 55%. Resolved this am, patient is tolerating PST, no acute distress noted. Wean Fio2 as tolerated for SPO2 above 92%, Follow up CXR and ABG in the am. Antihypertensive regimen adjusted for better BP control. 04/12: Patient with coarse lungs and increased secretion today. This am CXR noted with worsen infiltrate, 40 of Lasix given, repeat CXR in the am. Patient remains afebrile, complete IV Abx course, VSS. Transitioned to PO Eliquis overnight, continue to keep patient net negative for better lung compliance. Continue daily PST as tolerated. 04/13: Patient is off sedation this am. Remains unresponsive. Librium D/C and Seroquel was adjusted to Qhs, PRN analgesia for pain management. Patient responded well to IV lasix, this am CXR with some improvement, additional IV lasix ordered again today. high CO2 also noted from this am, ABG ordered. Patient is tolerating PST this am, SPO2 remains above 95%. Continue daily PST plan to get patient off the vent for possible SNF placemement 04/14: Patient mentation is unchanged despite reducing sedative agents. Will hold all scheduled sedatives agents for now, PRN analgesics for pain management and vent synchrony. Patient spike a temp this am, orders placed for cultures, IV abx per ID. Additional lasix today, F/u CXR in the am. Patient is tolerating PST this am. Assessment and Plan #Acute Hypoxic Respiratory Failure #COVID Pneumonia - Intubated on 03/10 due to worsen hypoxia on BIPAP - 2/2 s/p Tracheostomy - Vent setting:CPAP-40%,8 PS-10 - This am ABG pending - CCM consulted, appreciate recommendations - Continue Nebs per CCM - keep patient net negative for better lung compliance - VAP bundle addressed - Aspiration precaution HOB above 30 - Daily SBT and SAT trials as tolerated - PRN ABG and CXR - Continue SPO2 monitoring for SPO2 goal above 92% #Sepsis #COVID Pneumonia #Leukocytosis #Lactic Acidosis- Resolved - COVID PCR positive - UA neg, Blood cultures and Sputum culture NGTD - repeat Bculture NGTD, 03/17 Sputum Cult + Stenotrophomonas - Infectious disease consulted, appreciate recommendation - S/p Actemra 03/10/2021 - Completed X5days course of IV remdesivir - spike temp today, TMAx 101.3 - Panculture, IV abx per ID - Monitor WBC and temperature curve - Trend CBC #Neuro:Acute Encephalopathy - Off sedation, unresponsive - CT head/brain no acute Abn. - Repeat CT head noted - Librium and seroquel on hold - Avoid benzodiazepine to reduce the possibility of delirium - Prn analgesia for CPOT greater than 3 - Maintenance of sleep-wake cycle - Neurology on consult #CV: Hypertension - 03/09 Echocardiogram shows a mildly dilated ascending aorta, normal LV systolic function, mild concentric LVH, LVEF 60 to 65% - Continue current antihypertensive regimen - PRN Labetalol for SBP above 160 - Continue Blood pressure monitoring per protocol #Urinary retention - Good reinserted for retention - Strict intake and output - Avoid nephrotoxic medications; Renally dose medications - Monitor and replace electrolytes as needed - Trend BMP #Acute right upper extremity DVT - Bilateral lower extremity ultrasounds negative for DVT, superficial thrombus in left gastrocnemius vein - CTA chest shows no gross pulm embolism - bilateral upper extremity ultrasound shows DVT in right upper extremity - Transitioned to PO Eliquis - SCDs to BLE while in bed - Transfuse hemoglobin less than 7 - Monitor for signs of bleeding #Endo:Type 2 DM - Continue high dose SSI Q6hrs - Lantus qHs - Avoid Hypoglycemia The high probability of a clinically significant, sudden or life threatening deterioration of the [Respiratory] system(s) required my full and direct attention, intervention and personal management. The aggregate critical care time was [60] minutes. This time is in addition to time spent performing reported procedures but includes the following: [x] Data Review and interpretation [x] Patient assessment and monitoring of vital signs [x] Documentation [x] Medication orders and management Disposition Plan: ICU Total Time Spent with Patient (Minutes): 60 History Interval history: Patient seen and examined at the bedside. Remains on the vent. Off sedation, remains unresponsive this am. Luciano high temp this am TMAX 101.3. Otherwise, KVNG overnight Hospitalist Physical - Constitutional Vitals: Temp Pulse Resp BP Pulse Ox 98.8 F 106 H 41 H 167/83 94 04/14/21 11:28 04/14/21 11:00 04/14/21 11:00 04/14/21 11:00 04/14/21 11:00 General appearance: Present: no acute distress, well-nourished, obese, other (On the vent) - EENT Eyes: Present: PERRL - Respiratory Respiratory effort: normal Respiratory: bilateral: rhonchi - Cardiovascular Rhythm: regular Heart Sounds: Present: S1 & S2 - Extremities Extremities: no ischemia, pulses intact, pulses symmetrical Extremity abnormal: edema - Peripheral Assessment Generalized Edema Type: Pitting Edema Degree: 3+ Capillary Refill: < 3 seconds Skin Temperature: Warm Peripheral Pulses: within normal limits - Abdominal General gastrointestinal: soft, non-distended, normal bowel sounds - Integumentary Integumentary: Present: warm, dry - Psychiatric Psychiatric: other (On the vent, unresponsive) - Neurologic Neurologic: other (On the vent, unresponsive) - Allied Health Allied health notes reviewed: nursing, case management Results - Labs CBC & Chem 7: 04/14/21 04:32 04/14/21 04:32 Labs: Laboratory Last Values WBC 13.8 K/mm3 (4.5-11.0) H 04/14/21 04:32 RBC 2.64 M/mm3 (3.65-5.03) L 04/14/21 04:32 Hgb 8.0 gm/dl (11.8-15.2) L 04/14/21 04:32 Hct 24.1 % (35.5-45.6) L 04/14/21 04:32 MCV 92 fl (84-94) 04/14/21 04:32 MCH 30 pg (28-32) 04/14/21 04:32 MCHC 33 % (32-34) 04/14/21 04:32 RDW 16.1 % (13.2-15.2) H 04/14/21 04:32 Plt Count 436 K/mm3 (140-440) 04/14/21 04:32 Lymph % (Auto) 7.6 % (13.4-35.0) L 03/31/21 13:30 [place] % (Auto) 9.5 % (0.0-7.3) H 03/31/21 13:30 Eos % (Auto) 4.1 % (0.0-4.3) 03/31/21 13:30 Baso % (Auto) 0.5 % (0.0-1.8) 03/31/21 13:30 Lymph # (Auto) 0.6 K/mm3 (1.2-5.4) L 03/31/21 13:30 [place] # (Auto) 0.7 K/mm3 (0.0-0.8) 03/31/21 13:30 Eos # (Auto) 0.3 K/mm3 (0.0-0.4) 03/31/21 13:30 Baso # (Auto) 0.0 K/mm3 (0.0-0.1) 03/31/21 13:30 Add Manual Diff Complete 04/11/21 06:47 Total Counted 100 04/11/21 06:47 Seg Neutrophils % 78.3 % (40.0-70.0) H 03/31/21 13:30 Seg Neuts % (Manual) 76.0 % (40.0-70.0) H 04/11/21 06:47 Band Neutrophils % 2.0 % 04/11/21 06:47 Lymphocytes % (Manual) 10.0 % (13.4-35.0) L 04/11/21 06:47 Reactive Lymphs % (Man) 0 % 04/11/21 06:47 Monocytes % (Manual) 7.0 % (0.0-7.3) 04/11/21 06:47 Eosinophils % (Manual) 4.0 % (0.0-4.3) 04/11/21 06:47 Basophils % (Manual) 0 % (0.0-1.8) 04/11/21 06:47 Metamyelocytes % 1.0 % 04/11/21 06:47 Myelocytes % 0 % 04/11/21 06:47 Promyelocytes % 0 % 04/11/21 06:47 Blast Cells % 0 % 04/11/21 06:47 Nucleated RBC % Not Reportable 04/11/21 06:47 Seg Neutrophils # 5.8 K/mm3 (1.8-7.7) 03/31/21 13:30 Seg Neutrophils # Man 8.3 K/mm3 (1.8-7.7) H 04/11/21 06:47 Band Neutrophils # 0.2 K/mm3 04/11/21 06:47 Lymphocytes # (Manual) 1.1 K/mm3 (1.2-5.4) L 04/11/21 06:47 Abs React Lymphs (Man) 0.0 K/mm3 04/11/21 06:47 Monocytes # (Manual) 0.8 K/mm3 (0.0-0.8) 04/11/21 06:47 Eosinophils # (Manual) 0.4 K/mm3 (0.0-0.4) 04/11/21 06:47 Basophils # (Manual) 0.0 K/mm3 (0.0-0.1) 04/11/21 06:47 Metamyelocytes # 0.1 K/mm3 04/11/21 06:47 Myelocytes # 0.0 K/mm3 04/11/21 06:47 Promyelocytes # 0.0 K/mm3 04/11/21 06:47 Blast Cells # 0.0 K/mm3 04/11/21 06:47 WBC Morphology Not Reportable 04/11/21 06:47 Hypersegmented Neuts Not Reportable 04/11/21 06:47 Hyposegmented Neuts Not Reportable 04/11/21 06:47 Hypogranular Neuts Not Reportable 04/11/21 06:47 Smudge Cells Not Reportable 04/11/21 06:47 Toxic Granulation 1+ 04/11/21 06:47 Toxic Vacuolation Not Reportable 04/11/21 06:47 Dohle Bodies Not Reportable 04/11/21 06:47 Pelger-Huet Anomaly Not Reportable 04/11/21 06:47 Mely Rods Not Reportable 04/11/21 06:47 Platelet Estimate Consistent w auto 04/11/21 06:47 Clumped Platelets Not Reportable 04/11/21 06:47 Plt Clumps, EDTA Not Reportable 04/11/21 06:47 Large Platelets Not Reportable 04/11/21 06:47 Giant Platelets Not Reportable 04/11/21 06:47 Platelet Satelliting Not Reportable 04/11/21 06:47 Plt Morphology Comment Not Reportable 04/11/21 06:47 RBC Morphology Not Reportable 04/11/21 06:47 Dimorphic RBCs Not Reportable 04/11/21 06:47 Polychromasia Not Reportable 04/11/21 06:47 Hypochromasia Not Reportable 04/11/21 06:47 Poikilocytosis Not Reportable 04/11/21 06:47 Anisocytosis 1+ 04/11/21 06:47 Microcytosis Not Reportable 04/11/21 06:47 Macrocytosis Not Reportable 04/11/21 06:47 Spherocytes Not Reportable 04/11/21 06:47 Pappenheimer Bodies Not Reportable 04/11/21 06:47 Sickle Cells Not Reportable 04/11/21 06:47 Target Cells Not Reportable 04/11/21 06:47 Tear Drop Cells Not Reportable 04/11/21 06:47 Ovalocytes Not Reportable 04/11/21 06:47 Helmet Cells Not Reportable 04/11/21 06:47 [place] Bodies Not Reportable 04/11/21 06:47 [place] Rings Not Reportable 04/11/21 06:47 Shama Cells Not Reportable 04/11/21 06:47 Bite Cells Not Reportable 04/11/21 06:47 Crenated Cell Not Reportable 04/11/21 06:47 Elliptocytes Not Reportable 04/11/21 06:47 Acanthocytes (Spur) Not Reportable 04/11/21 06:47 Rouleaux Not Reportable 04/11/21 06:47 Hemoglobin C Crystals Not Reportable 04/11/21 06:47 Schistocytes Not Reportable 04/11/21 06:47 Malaria parasites Not Reportable 04/11/21 06:47 Shaheen Bodies Not Reportable 04/11/21 06:47 Hem Pathologist Commnt No 04/11/21 06:47 PT 13.4 Sec. (12.2-14.9) 04/11/21 18:17 INR 0.92 (0.87-1.13) 04/11/21 18:17 APTT 61.1 Sec. (24.2-36.6) H* 04/11/21 18:17 D-Dimer 1359.12 ng/mlDDU (0-234) H 03/17/21 04:40 Heparin Anti-Xa Level 1.03 U.I./ml (0.3-0.7) H 04/12/21 05:11 ABG pH 7.365 pH Units (7.350-7.450) 04/12/21 09:45 POC ABG pCO2 57.4 mmHg (32.0-48.0) H 04/06/21 04:49 ABG pCO2 73.4 mm Hg 04/12/21 09:45 POC ABG pO2 55.1 mmHg (83-108) L 04/06/21 04:49 ABG pO2 70.8 mm Hg (80.0-90.0) L 04/12/21 09:45 POC ABG HCO3 36.2 04/06/21 04:49 ABG HCO3 41.0 mmol/L (20.0-26.0) H 04/12/21 09:45 ABG O2 Saturation 96.3 % (95.0-99.0) 04/12/21 09:45 ABG O2 Content 11.0 (0.0-44) 04/12/21 09:45 POC ABG Base Excess 10.0 04/06/21 04:49 ABG Base Excess 13.7 mmol/L (-2.0-3.0) H 04/12/21 09:45 ABG Hemoglobin 8.3 gm/dl (14.0-18.0) L 04/12/21 09:45 ABG Oxyhemoglobin 87.5 (94-98) L 04/06/21 04:49 ABG Carboxyhemoglobin 1.8 % (0.0-5.0) 04/12/21 09:45 ABG Methemoglobin 0.6 % (0.0-1.5) 04/12/21 09:45 ABG Sodium 134.2 mmol/L (136.0-145.0) L 03/12/21 21:54 ABG Potassium 4.9 mmol/L (3.40-4.50) H 03/12/21 21:54 ABG Chloride 99.0 mmol/L (98-107) 03/12/21 21:54 ABG Glucose 306 mg/dL (65-95) H 03/12/21 21:54 Oxyhemoglobin 94.0 % (95.0-99.0) L 04/12/21 09:45 Carboxyhemoglobin 0.8 (0.5-1.5) 04/06/21 04:49 FiO2 55 % 04/12/21 09:45 FiO2 % 40.0 04/06/21 04:49 Sodium 138 mmol/L (137-145) 04/14/21 04:32 Potassium 4.9 mmol/L (3.6-5.0) 04/14/21 04:32 Chloride 95.5 mmol/L (98-107) L 04/14/21 04:32 Carbon Dioxide 38 mmol/L (22-30) H 04/14/21 04:32 Anion Gap 9 mmol/L 04/14/21 04:32 BUN 18 mg/dL (9-20) 04/14/21 04:32 Creatinine 0.4 mg/dL (0.8-1.3) L 04/14/21 04:32 Estimated GFR > 60 ml/min 04/14/21 04:32 BUN/Creatinine Ratio 45 % 04/14/21 04:32 Glucose 141 mg/dL (75-100) H 04/14/21 04:32 POC Glucose 143 mg/dL (70-105) H 04/14/21 11:03 Lactic Acid 1.90 mmol/L (0.7-2.0) 03/08/21 23:51 Calcium 9.6 mg/dL (8.4-10.2) 04/14/21 04:32 Phosphorus 2.90 mg/dL (2.5-4.5) 04/14/21 04:32 Magnesium 2.20 mg/dL (1.7-2.3) 04/14/21 04:32 Ferritin 976.4 ng/mL (30.0-300.0) H 03/15/21 04:00 Total Bilirubin 0.20 mg/dL (0.1-1.2) 03/12/21 08:03 AST 10 units/L (5-40) 03/12/21 08:03 ALT 16 units/L (7-56) 03/12/21 08:03 Alkaline Phosphatase 77 units/L (35-129) 03/12/21 08:03 Lactate Dehydrogenase 630 units/L (91-180) H 03/15/21 06:06 C-Reactive Protein 0.40 mg/dL (0.00-1.30) 03/17/21 04:40 NT-Pro-B Natriuret Pep 1053 pg/mL (0-900) H 03/08/21 20:24 Total Protein 6.0 g/dL (6.3-8.2) L 03/12/21 08:03 Albumin 2.9 g/dL (3.9-5) L 03/12/21 08:03 Albumin/Globulin Ratio 0.9 % 03/12/21 08:03 Triglycerides 305 mg/dL (2-149) H 03/22/21 07:26 Procalcitonin 0.17 ng/mL (<0.15) 04/01/21 07:16 Arterial Blood Glucose 306 mg/dL (65-95) H 03/12/21 21:54 Arterial Blood Ionized Calcium 5.0 mg/dL (4.6-5.3) 03/12/21 21:54 Urine Color Yellow (Yellow) 03/09/21 04:10 Urine Turbidity Slightly-cloudy (Clear) 03/09/21 04:10 Urine pH 5.0 (5.0-7.0) 03/09/21 04:10 Ur Specific [place] 1.041 (1.003-1.030) H 03/09/21 04:10 Urine Protein 100 mg/dl mg/dL (Negative) 03/09/21 04:10 Urine Glucose (UA) Neg mg/dL (Negative) 03/09/21 04:10 Urine Ketones Neg mg/dL (Negative) 03/09/21 04:10 Urine Blood Mod (Negative) 03/09/21 04:10 Urine Nitrite Neg (Negative) 03/09/21 04:10 Urine Bilirubin Neg (Negative) 03/09/21 04:10 Urine Urobilinogen 2.0 mg/dL (<2.0) 03/09/21 04:10 Ur Leukocyte Esterase Neg (Negative) 03/09/21 04:10 Urine WBC (Auto) 4.0 /HPF (0.0-6.0) 03/09/21 04:10 Urine RBC (Auto) 1.0 /HPF (0.0-6.0) 03/09/21 04:10 Urine Bacteria (Auto) 1+ /HPF (Negative) 03/09/21 04:10 Urine Mucus Few /HPF 03/09/21 04:10 Coronavirus (PCR) Positive (Negative) A 03/09/21 08:00 Miscellaneous Test Flexitest 1 03/16/21 13:14 Microbiology: Microbiology 04/14/21 08:26 Peripheral/Venous Blood Culture - Preliminary Culture in Progress 04/14/21 08:26 Peripheral/Venous Blood Culture - Preliminary Culture in Progress Good/IV: Voiding Method Indwelling Catheter Active Medications - Current Medications Current Medications: Generic Name Dose Route Start Last Admin Trade Name Freq PRN Reason Stop Dose Admin Acetaminophen 650 mg 03/09/21 01:26 04/14/21 09:41 Acetaminophen 325 Mg Tab PO 650 mg Q4H PRN Administration Pain MILD(1-3)/Fever >100.5/RAYO Albuterol 2.5 mg 03/09/21 01:26 03/18/21 21:06 Albuterol 2.5 Mg/3 Ml Nebu IH 2.5 mg Q4HRT PRN Administration Shortness Of Breath Amlodipine Besylate 10 mg 04/11/21 10:00 04/14/21 09:40 Amlodipine 5 Mg Tab PO 10 mg QDAY BLANCA Administration Apixaban 10 mg 04/11/21 22:00 04/14/21 09:41 Apixaban 5 Mg Tab PO 04/18/21 10:01 10 mg Q12HR BLANCA Administration Protocol Apixaban 5 mg 04/18/21 22:00 Apixaban 5 Mg Tab PO Q12HR BLANCA Protocol Arformoterol Tartrate 15 mcg 03/11/21 20:00 04/14/21 08:09 Arformoterol 15 Mcg/2 Ml Nebu IH 15 mcg Q12HRT BLANCA Administration Bisacodyl 10 mg 03/26/21 13:43 03/26/21 13:51 Bisacodyl 10 Mg Rect Supp VA 10 mg QDAY PRN Administration Constipation Budesonide 0.5 mg 04/06/21 20:00 04/14/21 08:09 Budesonide 0.5 Mg/2 Ml Nebu IH 0.5 mg Q12HRT BLANCA Administration Dextrose 0 ml 03/20/21 10:52 Dextrose 10% *Hypoglycemia IV PRN PRN Hypoglycemia Doxazosin Mesylate 1 mg 04/05/21 22:00 04/14/21 09:40 Doxazosin 1 Mg Tab PO 1 mg BID BLANCA Administration Famotidine 20 mg 03/12/21 22:00 04/14/21 09:41 Famotidine 20 Mg Tab FEEDTUBE 20 mg BID BLANCA Administration Fentanyl 1 applic 03/31/21 15:00 04/12/21 10:31 Fentanyl 75 Mcg/Hr Patch 72hr TD 1 applic Q3D BLANCA Administration Fentanyl 50 mcg 04/14/21 11:00 Fentanyl 100 Mcg/2 Ml Inj IV Q2HR PRN COPT greater than 3 Furosemide 20 mg 04/14/21 08:00 04/14/21 08:40 Furosemide 20 Mg/2 Ml Inj IV 04/14/21 14:01 20 mg Q8HR BLANCA Administration Hydralazine HCl 50 mg 03/23/21 14:26 04/14/21 05:24 Hydralazine 25 Mg Tab PO 50 mg Q8HR BLANCA Administration Insulin Glargine 18 units 04/07/21 22:00 04/13/21 21:37 Insulin Glargine 100 Units/Ml SUB-Q 18 units QHS BLANCA Administration Insulin Human Lispro 0 unit 03/11/21 18:00 04/14/21 05:24 Insulin Lispro 100 Unit/Ml SUB-Q Not Given Q6HR [facility] Protocol Metoprolol Tartrate 12.5 mg 03/21/21 22:00 04/14/21 09:40 Metoprolol Tartrate 25 Mg Tab PO 12.5 mg BID BLANCA Administration Ondansetron HCl 4 mg 03/09/21 01:26 04/13/21 16:17 Ondansetron 4 Mg/2 Ml Inj IV 4 mg Q8H PRN Administration Nausea And Vomiting Oxycodone HCl 5 mg 04/13/21 12:34 04/13/21 16:17 Oxycodone 5 Mg Tab PO 5 mg Q6HR PRN Administration Pain, Moderate (4-6) Phenyleph/Shark Oil/Min Oil/Petrol 1 applic 03/22/21 17:35 04/06/21 04:04 Pe/Mo/Pet,Wh 10 Applic/28 Gm Tube VA 1 applic Q6HR PRN Administration Hemorrhoids Polyethylene Glycol 17 gm 04/02/21 10:00 04/14/21 09:41 Polyethylene Glycol 3350 17 Gm Powder FEEDTUBE 17 gm QDAY BLANCA Administration Quetiapine Fumarate 50 mg 04/13/21 22:00 04/13/21 21:34 Quetiapine 25 Mg Tab PO 50 mg QHS BLANCA Administration Senna/Docusate Sodium 2 tab 04/02/21 10:00 04/14/21 09:41 Sennosides/Docusate Sodium 8.6/50 Mg Tab FEEDTUBE 2 tab BID BLANCA Administration Sodium Chloride 10 ml 03/09/21 10:00 04/14/21 09:41 Sodium Chloride 0.9% 10 Ml Flush Syringe IV 10 ml BID BALNCA Administration Sodium Chloride 10 ml 03/09/21 01:26 04/10/21 21:07 Sodium Chloride 0.9% 10 Ml Flush Syringe IV 10 ml PRN PRN Administration LINE FLUSH Sodium Chloride 10 ml 03/20/21 09:48 Sodium Chloride 0.9% 50 Ml Ivpb IV PRN PRN FLUSH Nutrition/Malnutrition Assess - Dietary Evaluation Nutrition/Malnutrition Findings: Nutrition Notes Start: 03/09/21 08:49 Freq: Status: Active Protocol: Document 04/07/21 14:55 BRIAN (Rec: 04/07/21 14:58 BRIAN [id number]) Nutrition Notes Initial or Follow up Reassessment Current Diagnosis Diabetes,Sepsis,Hypertension, Respiratory Failure Other Pertinent Diagnosis COVID-19, Bilateral Pneumonia. Current Diet TF-Glucerna 1.2 at 70 ml/hr Labs/Tests BG 216 Pertinent Medications Heparin gtt, Miralax, Senokot Height 5 ft 11 in Weight 122 kg [place] Body Weight (kg) 78.18 BMI 37.5 Weight Status Obese Subjective/Other Information Pt remains on vent support. Per RN, pt tolerating TF at goal rate. Percent of energy/protein needs met: 82% energy 78% pro Burn Absent Trauma Absent #1 Nutrition Diagnosis Inadequate oral intake Diagnosis Progress(for reassessment Continues documentation) Is patient on ventilator? Yes Is Patient Ambulatory and/or Out of Bed No REE-([facility]-confined to bed) [phone] Calculation Used for Recommendations 70-80% energy needs Additional Notes Energy needs: 5823-6931 kcal/ day Pro needs 1.3g/kg adjBW: 130g/ day Fluid needs 1ml/kcal Nutrition Intervention Nutrition Support: Continue Glucerna 1.2 at 70ml/ hr with 110ml water flush q4h. Kcal 2,016 Protein (gm) 101 Carbohydrates (gm) 192 Fat (gm) 101 Fluid (mL) 1,352 Fiber (gm) 27 Goal #1 TF tolerance Goal #2 TF to meet at least 75% energy and pro needs Follow-Up By: 04/14/21 Additional Comments F/U: stable TF, vent status, wt <ARABELLA CASTILLO E - Last Filed: 04/15/21 07:05> Assessment and Plan Assessment and plan: I saw and evaluated the patient. I agree with the findings and the plan of care as documented in the Nurse Practitioner's~note, with the following corrections and additions. Hospitalist Physical - Constitutional Vitals: Temp Pulse Resp BP Pulse Ox 100.8 F H 111 H 40 H 141/80 97 04/15/21 04:00 04/15/21 06:03 04/15/21 06:01 04/15/21 06:03 04/15/21 06:03 Results - Labs CBC & Chem 7: 04/15/21 04:44 04/15/21 04:44 Labs: Laboratory Last Values WBC 15.8 K/mm3 (4.5-11.0) H 04/15/21 04:44 RBC 2.96 M/mm3 (3.65-5.03) L 04/15/21 04:44 Hgb 8.9 gm/dl (11.8-15.2) L 04/15/21 04:44 Hct 27.1 % (35.5-45.6) L 04/15/21 04:44 MCV 91 fl (84-94) 04/15/21 04:44 MCH 30 pg (28-32) 04/15/21 04:44 MCHC 33 % (32-34) 04/15/21 04:44 RDW 16.5 % (13.2-15.2) H 04/15/21 04:44 Plt Count 507 K/mm3 (140-440) H 04/15/21 04:44 Lymph % (Auto) 7.6 % (13.4-35.0) L 03/31/21 13:30 [place] % (Auto) 9.5 % (0.0-7.3) H 03/31/21 13:30 Eos % (Auto) 4.1 % (0.0-4.3) 03/31/21 13:30 Baso % (Auto) 0.5 % (0.0-1.8) 03/31/21 13:30 Lymph # (Auto) 0.6 K/mm3 (1.2-5.4) L 03/31/21 13:30 [place] # (Auto) 0.7 K/mm3 (0.0-0.8) 03/31/21 13:30 Eos # (Auto) 0.3 K/mm3 (0.0-0.4) 03/31/21 13:30 Baso # (Auto) 0.0 K/mm3 (0.0-0.1) 03/31/21 13:30 Add Manual Diff Complete 04/11/21 06:47 Total Counted 100 04/11/21 06:47 Seg Neutrophils % 78.3 % (40.0-70.0) H 03/31/21 13:30 Seg Neuts % (Manual) 76.0 % (40.0-70.0) H 04/11/21 06:47 Band Neutrophils % 2.0 % 04/11/21 06:47 Lymphocytes % (Manual) 10.0 % (13.4-35.0) L 04/11/21 06:47 Reactive Lymphs % (Man) 0 % 04/11/21 06:47 Monocytes % (Manual) 7.0 % (0.0-7.3) 04/11/21 06:47 Eosinophils % (Manual) 4.0 % (0.0-4.3) 04/11/21 06:47 Basophils % (Manual) 0 % (0.0-1.8) 04/11/21 06:47 Metamyelocytes % 1.0 % 04/11/21 06:47 Myelocytes % 0 % 04/11/21 06:47 Promyelocytes % 0 % 04/11/21 06:47 Blast Cells % 0 % 04/11/21 06:47 Nucleated RBC % Not Reportable 04/11/21 06:47 Seg Neutrophils # 5.8 K/mm3 (1.8-7.7) 03/31/21 13:30 Seg Neutrophils # Man 8.3 K/mm3 (1.8-7.7) H 04/11/21 06:47 Band Neutrophils # 0.2 K/mm3 04/11/21 06:47 Lymphocytes # (Manual) 1.1 K/mm3 (1.2-5.4) L 04/11/21 06:47 Abs React Lymphs (Man) 0.0 K/mm3 04/11/21 06:47 Monocytes # (Manual) 0.8 K/mm3 (0.0-0.8) 04/11/21 06:47 Eosinophils # (Manual) 0.4 K/mm3 (0.0-0.4) 04/11/21 06:47 Basophils # (Manual) 0.0 K/mm3 (0.0-0.1) 04/11/21 06:47 Metamyelocytes # 0.1 K/mm3 04/11/21 06:47 Myelocytes # 0.0 K/mm3 04/11/21 06:47 Promyelocytes # 0.0 K/mm3 04/11/21 06:47 Blast Cells # 0.0 K/mm3 04/11/21 06:47 WBC Morphology Not Reportable 04/11/21 06:47 Hypersegmented Neuts Not Reportable 04/11/21 06:47 Hyposegmented Neuts Not Reportable 04/11/21 06:47 Hypogranular Neuts Not Reportable 04/11/21 06:47 Smudge Cells Not Reportable 04/11/21 06:47 Toxic Granulation 1+ 04/11/21 06:47 Toxic Vacuolation Not Reportable 04/11/21 06:47 Dohle Bodies Not Reportable 04/11/21 06:47 Pelger-Huet Anomaly Not Reportable 04/11/21 06:47 Mely Rods Not Reportable 04/11/21 06:47 Platelet Estimate Consistent w auto 04/11/21 06:47 Clumped Platelets Not Reportable 04/11/21 06:47 Plt Clumps, EDTA Not Reportable 04/11/21 06:47 Large Platelets Not Reportable 04/11/21 06:47 Giant Platelets Not Reportable 04/11/21 06:47 Platelet Satelliting Not Reportable 04/11/21 06:47 Plt Morphology Comment Not Reportable 04/11/21 06:47 RBC Morphology Not Reportable 04/11/21 06:47 Dimorphic RBCs Not Reportable 04/11/21 06:47 Polychromasia Not Reportable 04/11/21 06:47 Hypochromasia Not Reportable 04/11/21 06:47 Poikilocytosis Not Reportable 04/11/21 06:47 Anisocytosis 1+ 04/11/21 06:47 Microcytosis Not Reportable 04/11/21 06:47 Macrocytosis Not Reportable 04/11/21 06:47 Spherocytes Not Reportable 04/11/21 06:47 Pappenheimer Bodies Not Reportable 04/11/21 06:47 Sickle Cells Not Reportable 04/11/21 06:47 Target Cells Not Reportable 04/11/21 06:47 Tear Drop Cells Not Reportable 04/11/21 06:47 Ovalocytes Not Reportable 04/11/21 06:47 Helmet Cells Not Reportable 04/11/21 06:47 [place] Bodies Not Reportable 04/11/21 06:47 [place] Rings Not Reportable 04/11/21 06:47 [place] Cells Not Reportable 04/11/21 06:47 Bite Cells Not Reportable 04/11/21 06:47 Crenated Cell Not Reportable 04/11/21 06:47 Elliptocytes Not Reportable 04/11/21 06:47 Acanthocytes (Spur) Not Reportable 04/11/21 06:47 Rouleaux Not Reportable 04/11/21 06:47 Hemoglobin C Crystals Not Reportable 04/11/21 06:47 Schistocytes Not Reportable 04/11/21 06:47 Malaria parasites Not Reportable 04/11/21 06:47 [place]en Bodies Not Reportable 04/11/21 06:47 Hem Pathologist Commnt No 04/11/21 06:47 PT 13.4 Sec. (12.2-14.9) 04/11/21 18:17 INR 0.92 (0.87-1.13) 04/11/21 18:17 APTT 61.1 Sec. (24.2-36.6) H* 04/11/21 18:17 D-Dimer 1359.12 ng/mlDDU (0-234) H 03/17/21 04:40 Heparin Anti-Xa Level 1.03 U.I./ml (0.3-0.7) H 04/12/21 05:11 ABG pH 7.365 pH Units (7.350-7.450) 04/12/21 09:45 POC ABG pCO2 57.4 mmHg (32.0-48.0) H 04/06/21 04:49 ABG pCO2 73.4 mm Hg 04/12/21 09:45 POC ABG pO2 55.1 mmHg (83-108) L 04/06/21 04:49 ABG pO2 70.8 mm Hg (80.0-90.0) L 04/12/21 09:45 POC ABG HCO3 36.2 04/06/21 04:49 ABG HCO3 41.0 mmol/L (20.0-26.0) H 04/12/21 09:45 ABG O2 Saturation 96.3 % (95.0-99.0) 04/12/21 09:45 ABG O2 Content 11.0 (0.0-44) 04/12/21 09:45 POC ABG Base Excess 10.0 04/06/21 04:49 ABG Base Excess 13.7 mmol/L (-2.0-3.0) H 04/12/21 09:45 ABG Hemoglobin 8.3 gm/dl (14.0-18.0) L 04/12/21 09:45 ABG Oxyhemoglobin 87.5 (94-98) L 04/06/21 04:49 ABG Carboxyhemoglobin 1.8 % (0.0-5.0) 04/12/21 09:45 ABG Methemoglobin 0.6 % (0.0-1.5) 04/12/21 09:45 ABG Sodium 134.2 mmol/L (136.0-145.0) L 03/12/21 21:54 ABG Potassium 4.9 mmol/L (3.40-4.50) H 03/12/21 21:54 ABG Chloride 99.0 mmol/L (98-107) 03/12/21 21:54 ABG Glucose 306 mg/dL (65-95) H 03/12/21 21:54 Oxyhemoglobin 94.0 % (95.0-99.0) L 04/12/21 09:45 Carboxyhemoglobin 0.8 (0.5-1.5) 04/06/21 04:49 FiO2 55 % 04/12/21 09:45 FiO2 % 40.0 04/06/21 04:49 Sodium 140 mmol/L (137-145) 04/15/21 04:44 Potassium 4.2 mmol/L (3.6-5.0) 04/15/21 04:44 Chloride 96.9 mmol/L (98-107) L 04/15/21 04:44 Carbon Dioxide 38 mmol/L (22-30) H 04/15/21 04:44 Anion Gap 9 mmol/L 04/15/21 04:44 BUN 20 mg/dL (9-20) 04/15/21 04:44 Creatinine 0.4 mg/dL (0.8-1.3) L 04/15/21 04:44 Estimated GFR > 60 ml/min 04/15/21 04:44 BUN/Creatinine Ratio 50 % 04/15/21 04:44 Glucose 163 mg/dL (75-100) H 04/15/21 04:44 POC Glucose 167 mg/dL (70-105) H 04/15/21 05:52 Lactic Acid 1.90 mmol/L (0.7-2.0) 03/08/21 23:51 Calcium 9.7 mg/dL (8.4-10.2) 04/15/21 04:44 Phosphorus 2.90 mg/dL (2.5-4.5) 04/14/21 04:32 Magnesium 2.20 mg/dL (1.7-2.3) 04/14/21 04:32 Ferritin 976.4 ng/mL (30.0-300.0) H 03/15/21 04:00 Total Bilirubin 0.20 mg/dL (0.1-1.2) 03/12/21 08:03 AST 10 units/L (5-40) 03/12/21 08:03 ALT 16 units/L (7-56) 03/12/21 08:03 Alkaline Phosphatase 77 units/L (35-129) 03/12/21 08:03 Lactate Dehydrogenase 630 units/L (91-180) H 03/15/21 06:06 C-Reactive Protein 0.40 mg/dL (0.00-1.30) 03/17/21 04:40 NT-Pro-B Natriuret Pep 1053 pg/mL (0-900) H 03/08/21 20:24 Total Protein 6.0 g/dL (6.3-8.2) L 03/12/21 08:03 Albumin 2.9 g/dL (3.9-5) L 03/12/21 08:03 Albumin/Globulin Ratio 0.9 % 03/12/21 08:03 Triglycerides 305 mg/dL (2-149) H 03/22/21 07:26 Procalcitonin 0.17 ng/mL (<0.15) 04/01/21 07:16 Arterial Blood Glucose 306 mg/dL (65-95) H 03/12/21 21:54 Arterial Blood Ionized Calcium 5.0 mg/dL (4.6-5.3) 03/12/21 21:54 Urine Color Yellow (Yellow) 04/14/21 Unknown Urine Turbidity Clear (Clear) 04/14/21 Unknown Urine pH 8.0 (5.0-7.0) H 04/14/21 Unknown Ur Specific [place] 1.009 (1.003-1.030) 04/14/21 Unknown Urine Protein <15 mg/dl mg/dL (Negative) 04/14/21 Unknown Urine Glucose (UA) Neg mg/dL (Negative) 04/14/21 Unknown Urine Ketones Neg mg/dL (Negative) 04/14/21 Unknown Urine Blood Neg (Negative) 04/14/21 Unknown Urine Nitrite Neg (Negative) 04/14/21 Unknown Urine Bilirubin Neg (Negative) 04/14/21 Unknown Urine Urobilinogen 2.0 mg/dL (<2.0) 04/14/21 Unknown Ur Leukocyte Esterase Neg (Negative) 04/14/21 Unknown Urine WBC (Auto) < 1.0 /HPF (0.0-6.0) 04/14/21 Unknown Urine RBC (Auto) < 1.0 /HPF (0.0-6.0) 04/14/21 Unknown Urine Bacteria (Auto) 1+ /HPF (Negative) 03/09/21 04:10 Urine Mucus Few /HPF 03/09/21 04:10 Coronavirus (PCR) Positive (Negative) A 03/09/21 08:00 Miscellaneous Test Flexitest 1 03/16/21 13:14 Microbiology: Microbiology 04/14/21 08:17 Tracheal Aspirate Sputum Culture - Preliminary 04/14/21 08:26 Peripheral/Venous Blood Culture - Preliminary Culture in Progress 04/14/21 08:26 Peripheral/Venous Blood Culture - Preliminary Culture in Progress Good/IV: Voiding Method Indwelling Catheter Active Medications - Current Medications Current Medications: Generic Name Dose Route Start Last Admin Trade Name Freq PRN Reason Stop Dose Admin Acetaminophen 650 mg 03/09/21 01:26 04/14/21 09:41 Acetaminophen 325 Mg Tab PO 650 mg Q4H PRN Administration Pain MILD(1-3)/Fever >100.5/RAYO Albuterol 2.5 mg 03/09/21 01:26 03/18/21 21:06 Albuterol 2.5 Mg/3 Ml Nebu IH 2.5 mg Q4HRT PRN Administration Shortness Of Breath Amlodipine Besylate 10 mg 04/11/21 10:00 04/14/21 09:40 Amlodipine 5 Mg Tab PO 10 mg QDAY BLANCA Administration Apixaban 10 mg 04/11/21 22:00 04/14/21 21:40 Apixaban 5 Mg Tab PO 04/18/21 10:01 10 mg Q12HR BLANCA Administration Protocol Apixaban 5 mg 04/18/21 22:00 Apixaban 5 Mg Tab PO Q12HR BLANCA Protocol Arformoterol Tartrate 15 mcg 03/11/21 20:00 04/14/21 21:19 Arformoterol 15 Mcg/2 Ml Nebu IH 15 mcg Q12HRT BLANCA Administration Bisacodyl 10 mg 03/26/21 13:43 03/26/21 13:51 Bisacodyl 10 Mg Rect Supp VA 10 mg QDAY PRN Administration Constipation Budesonide 0.5 mg 04/06/21 20:00 04/14/21 21:19 Budesonide 0.5 Mg/2 Ml Nebu IH 0.5 mg Q12HRT BLANCA Administration Dextrose 0 ml 03/20/21 10:52 Dextrose 10% *Hypoglycemia IV PRN PRN Hypoglycemia Doxazosin Mesylate 1 mg 04/05/21 22:00 04/14/21 21:36 Doxazosin 1 Mg Tab PO 1 mg BID BLANCA Administration Famotidine 20 mg 03/12/21 22:00 04/14/21 22:19 Famotidine 20 Mg Tab FEEDTUBE 20 mg BID BLANCA Administration Fentanyl 50 mcg 04/14/21 11:00 04/14/21 21:37 Fentanyl 100 Mcg/2 Ml Inj IV 50 mcg Q2HR PRN Administration COPT greater than 3 Hydralazine HCl 50 mg 03/23/21 14:26 04/15/21 05:36 Hydralazine 25 Mg Tab PO 50 mg Q8HR BLANCA Administration Cefepime HCl 2 gm in 100 mls @ 200 mls/hr 04/14/21 15:00 04/15/21 05:36 Cefepime/Ns 2 Gm/100 Ml IV 200 mls/hr Q8HR BLANCA Administration Protocol Insulin Glargine 18 units 04/07/21 22:00 04/14/21 21:40 Insulin Glargine 100 Units/Ml SUB-Q 18 units QHS BLANCA Administration Insulin Human Lispro 0 unit 03/11/21 18:00 04/15/21 06:29 Insulin Lispro 100 Unit/Ml SUB-Q 3 unit Q6HR BLANCA Administration Protocol Metoprolol Tartrate 12.5 mg 03/21/21 22:00 04/14/21 21:35 Metoprolol Tartrate 25 Mg Tab PO 12.5 mg BID BLANCA Administration Ondansetron HCl 4 mg 03/09/21 01:26 04/13/21 16:17 Ondansetron 4 Mg/2 Ml Inj IV 4 mg Q8H PRN Administration Nausea And Vomiting Oxycodone HCl 5 mg 04/13/21 12:34 04/14/21 18:09 Oxycodone 5 Mg Tab PO 5 mg Q6HR PRN Administration Pain, Moderate (4-6) Phenyleph/Shark Oil/Min Oil/Petrol 1 applic 03/22/21 17:35 04/06/21 04:04 Pe/Mo/Pet,Wh 10 Applic/28 Gm Tube VA 1 applic Q6HR PRN Administration Hemorrhoids Polyethylene Glycol 17 gm 04/02/21 10:00 04/14/21 09:41 Polyethylene Glycol 3350 17 Gm Powder FEEDTUBE 17 gm QDAY BLANCA Administration Senna/Docusate Sodium 2 tab 04/02/21 10:00 04/14/21 21:33 Sennosides/Docusate Sodium 8.6/50 Mg Tab FEEDTUBE 2 tab BID BLANCA Administration Sodium Chloride 10 ml 03/09/21 10:00 04/14/21 21:40 Sodium Chloride 0.9% 10 Ml Flush Syringe IV 10 ml BID BLANCA Administration Sodium Chloride 10 ml 03/09/21 01:26 04/10/21 21:07 Sodium Chloride 0.9% 10 Ml Flush Syringe IV 10 ml PRN PRN Administration LINE FLUSH Sodium Chloride 10 ml 03/20/21 09:48 Sodium Chloride 0.9% 50 Ml Ivpb IV PRN PRN FLUSH Nutrition/Malnutrition Assess - Dietary Evaluation Nutrition/Malnutrition Findings: Nutrition Notes Start: 03/09/21 08:49 Freq: Status: Active Protocol: Document 04/14/21 14:43 BRIAN (Rec: 04/14/21 14:45 BRIAN [id number]) Nutrition Notes Initial or Follow up Reassessment Current Diagnosis Diabetes,Sepsis,Hypertension, Respiratory Failure Other Pertinent Diagnosis COVID-19, Bilateral Pneumonia. Current Diet TF-Glucerna 1.2 at 70 ml/hr Labs/Tests reviewed Pertinent Medications reviewed Height 5 ft 11 in Weight 122.4 kg [place] Body Weight (kg) 78.18 BMI 37.6 Weight Status Obese Subjective/Other Information Pt remains on vent support. Spoke with RN via phone (14:18 ); pt continues to tolerate TF at goal rate. Percent of energy/protein needs met: 82% energy 78% pro Burn Absent Trauma Absent #1 Nutrition Diagnosis Inadequate oral intake Diagnosis Progress(for reassessment Continues documentation) Is patient on ventilator? Yes Is Patient Ambulatory and/or Out of Bed No REE-([facility]-confined to bed) 2453.928 Calculation Used for Recommendations 70-80% energy needs Additional Notes Energy needs: 3619-7999 kcal/ day Pro needs 1.3g/kg adjBW: 130g/ day Fluid needs 1ml/kcal Nutrition Intervention Nutrition Support: Continue Glucerna 1.2 at 70ml/ hr with 110ml water flush q4h. Kcal 2,016 Protein (gm) 101 Carbohydrates (gm) 192 Fat (gm) 101 Fluid (mL) 1,352 Fiber (gm) 27 Goal #1 TF tolerance Goal #2 TF to meet at least 75% energy and pro needs Follow-Up By: 04/21/21 Additional Comments F/U: stable TF, vent status, wt
[2021-04-14] MEDS ORDERED: VANCOMYCIN 1,750 MG in SODIUM CHLORIDE 0.9% 500 ML 500 ML IV ONE ×2 (14:15→14:45)
--- NOTE | 2021-04-14 14:15 | Progress Note ---
Assessment and Plan Cultures: SARS CoV2 PCR: positive 03/08/2021 blood culture: no growth 03/10/2021 sputum culture: Usual respiratory marlyn 03/16/2021 blood culture: no growth 03/18/2021 sputum culture: Stenotrophomonas 03/31/2021 Blood culture: no growth 03/31/2021 tracheal aspirate: usual resp marlyn A/P: 61-year-old male with diabetes, hypertension admitted to the hospital with complaints of shortness of breath and feeling weak for the last 1 week: #Sepsis secondary to bilateral pneumonia: secondary to COVID-19. Completed remd esivir, s/p Actemra, steroids. Completed abx for bacterial pneumonia, Stenotrophomonas. #New fever: work up ordered as below. #Acute hypoxic respiratory failure: s/p trach and PEG. #DM #HTN #Acute DVT in RUE Recs: -UA, urine culture, blood, respiratory cultures -Empiric cefepime, vancomycin added -CRP and procalcitonin in a.m. Sangita Nicole MD, FACP, [facility] ([facility] O: [phone] F: [phone] Subjective Date of service: 04/14/21 Principal diagnosis: COVID-19 infection; DM II; Bilateral pneumonia; Obesity; HTN Interval history: Spiked a fever of 101.3 F. Remains on the vent. WBC up to 13.8 Objective - Exam Narrative Exam: Physical Exam Constitutional: on the vent Head, Ears, Nose: Normocephalic, atraumatic. External ears, nose normal Eyes: Conjunctivae/corneas clear. No icterus. Neck: trach + Cardiovascular: S1, S2 + Respiratory: AE fair GI: Soft, bowel sounds +, PEG + Musculoskeletal: edema + Skin: No rash or abscess Hem/Lymphatic: No palpable cervical or supraclavicular nodes. No lymphangitis Psych: no agitation Neurological: on the vent, exam limited - Constitutional Vitals: Vital Signs Temp Pulse Resp BP Pulse Ox 98.8 F 104 H 28 H 146/78 96 04/14/21 11:28 04/14/21 12:00 04/14/21 12:00 04/14/21 12:00 04/14/21 12:00 Temperature -Last 24 Hours Temperature 98.8 F Temperature 101.3 F Temperature 98.8 F Temperature 99.4 F Temperature 99.4 F Temperature 100.9 F Temperature 98.5 F - Labs CBC & Chem 7: 04/14/21 04:32 04/14/21 04:32 Labs: Abnormal lab results 04/13/21 04/13/21 04/14/21 Range/Units 15:51 23:35 04:32 WBC 13.8 H (4.5-11.0) K/mm3 RBC 2.64 L (3.65-5.03) M/mm3 Hgb 8.0 L (11.8-15.2) gm/dl Hct 24.1 L (35.5-45.6) % RDW 16.1 H (13.2-15.2) % Chloride (98-107) mmol/L Carbon Dioxide (22-30) mmol/L Creatinine (0.8-1.3) mg/dL Glucose (75-100) mg/dL POC Glucose 136 H 167 H (70-105) mg/dL 04/14/21 04/14/21 04/14/21 Range/Units 04:32 05:18 11:03 WBC (4.5-11.0) K/mm3 RBC (3.65-5.03) M/mm3 Hgb (11.8-15.2) gm/dl Hct (35.5-45.6) % RDW (13.2-15.2) % Chloride 95.5 L (98-107) mmol/L Carbon Dioxide 38 H (22-30) mmol/L Creatinine 0.4 L (0.8-1.3) mg/dL Glucose 141 H (75-100) mg/dL POC Glucose 140 H 143 H (70-105) mg/dL
[2021-04-14] MEDS ORDERED: VANCOMYCIN PHARMACY TO DOSE IV SCH (15:00)
--- NOTE | 2021-04-14 15:50 | Progress Note ---
Assessment and Plan Acute hypoxemic respiratory failure, on MVS COVID-19 infection Bilateral pneumonia Obesity BMI 36 Hypertension Leukocytosis Possible venous thromboembolic phenomena with significantly elevated D-dimers DM II Elevated serum inflammatory markers to include CRP levels, ferritin and LDH Hyperkalemia Daily assessment to wean, daily SAT and SBT Trach care, airway clearance, secretion management Diuretics to keep him negative fluid balance, and extra dose of Furosemide will be given today CXR, ABG in am Trend temperature curve and WCC Antibiotics per ID service - VAP bundle addressed, aspiration precautions HOB>40 - continue to titrate supplemental oxygen to keep SpO2 88-90% - continue bronchodilators with pulmonary hygiene per RT - continue accuchecks with glycemic control per SSI (While critically ill target blood glucose of 140-180 mg/dL; avoid hypoglycemia) - avoid nephrotoxins, renally dose all medications - avoid benzodiazepines, reduce the possibility of delirium - sedation target for RASS -1 to -2 -Off Propofol and Fentanyl - prn analgesia per pain score - Maintenance of sleep-wake cycle, avoid delirium -Stress ulcer prophylaxis -Therapeutic anticoagulation- on Apixaban - mobility, off loading and frequent turning per facility protocol for pressure ulcer prevention - Monitor hemodynamics closely - continue other care per attending / other consultants COVID SPECIFIC INTERVENTIONS - s/p Remdesivir per ID/Pulmonary developed protocols - s/p systemic steroids for severe COVID-19 infection CONDITION: CRITICAL PROGNOSIS: GUARDED CODE STATUS: FULL CODE The high probability of a clinically significant, sudden or life-threatening deterioration of the respiratory, cardiovascular system(s) required my full and direct attention, intervention and personal management. The aggregate critical care time was [35] minutes without overlap. Time includes spent on; [x] Data Review and interpretation [x] Patient assessment and monitoring of vital signs [x] Documentation [x] Medication orders and management Subjective Date of service: 04/14/21 Principal diagnosis: COVID-19 infection; DM II; Bilateral pneumonia; Obesity; HTN Interval history: Patient is seen today for: Acute hypoxemic respiratory failure; COVID-19 infection; DM II; Bilateral pneumonia; Obesity; HTN Seen and examined at bedside; 24hour events reviewed; nursing and respiratory care staff consulted; no adverse overnight events reported to me; resting in bed; on MVS PEEP +8, FIO2 55 %; no emesis or overt aspiration;on PSV but has episodes of desaturations, with increased work of breathing- placed back on full support; Episode of fever this morning , on Apixaban, getting intermittent diuretic therapy. Remains positive fluid balance with generalized edema clinically Mental status is unchanged Objective Vital Signs - 12hr 04/14/21 04/14/21 04/14/21 04:00 04:30 05:00 Temperature Pulse Rate 107 H 105 H 105 H Pulse Rate [ Bilateral Throughout] Pulse Rate [ 107 H From Monitor] Respiratory 28 H 24 26 H Rate Respiratory Rate [Bilateral Throughout] Blood Pressure 132/62 139/64 125/60 O2 Sat by Pulse 96 97 98 Oximetry O2 Sat by Pulse Oximetry [ Assessment] 04/14/21 04/14/21 04/14/21 05:24 05:30 06:00 Temperature Pulse Rate 105 H 105 H 107 H Pulse Rate [ Bilateral Throughout] Pulse Rate [ From Monitor] Respiratory 28 H 35 H Rate Respiratory Rate [Bilateral Throughout] Blood Pressure 125/60 130/66 130/66 O2 Sat by Pulse 96 99 Oximetry O2 Sat by Pulse Oximetry [ Assessment] 04/14/21 04/14/21 04/14/21 06:30 07:00 07:30 Temperature Pulse Rate 105 H 106 H 107 H Pulse Rate [ Bilateral Throughout] Pulse Rate [ From Monitor] Respiratory 34 H 28 H 31 H Rate Respiratory Rate [Bilateral Throughout] Blood Pressure 171/72 162/78 164/81 O2 Sat by Pulse 99 98 99 Oximetry O2 Sat by Pulse Oximetry [ Assessment] 04/14/21 04/14/21 04/14/21 07:34 08:00 08:09 Temperature 101.3 F H Pulse Rate 106 H 108 H Pulse Rate [ 106 H Bilateral Throughout] Pulse Rate [ 106 H From Monitor] Respiratory 32 H Rate Respiratory 22 Rate [Bilateral Throughout] Blood Pressure 156/75 156/75 O2 Sat by Pulse 97 98 Oximetry O2 Sat by Pulse 98 Oximetry [ Assessment] 04/14/21 04/14/21 04/14/21 08:30 09:00 09:30 Temperature Pulse Rate 107 H 113 H 113 H Pulse Rate [ Bilateral Throughout] Pulse Rate [ From Monitor] Respiratory 26 H 35 H 45 H Rate Respiratory Rate [Bilateral Throughout] Blood Pressure 151/73 135/81 148/73 O2 Sat by Pulse 100 98 96 Oximetry O2 Sat by Pulse Oximetry [ Assessment] 04/14/21 04/14/21 04/14/21 09:40 10:00 10:30 Temperature Pulse Rate 114 H 114 H 108 H Pulse Rate [ Bilateral Throughout] Pulse Rate [ From Monitor] Respiratory 40 H 41 H Rate Respiratory Rate [Bilateral Throughout] Blood Pressure 148/73 153/76 153/76 O2 Sat by Pulse 96 96 Oximetry O2 Sat by Pulse Oximetry [ Assessment] 04/14/21 04/14/21 04/14/21 11:00 11:28 11:30 Temperature 98.8 F Pulse Rate 106 H 106 H Pulse Rate [ Bilateral Throughout] Pulse Rate [ From Monitor] Respiratory 41 H 40 H Rate Respiratory Rate [Bilateral Throughout] Blood Pressure 167/83 172/86 O2 Sat by Pulse 94 94 Oximetry O2 Sat by Pulse Oximetry [ Assessment] 04/14/21 04/14/21 04/14/21 11:44 12:00 15:21 Temperature Pulse Rate 107 H 105 H 111 H Pulse Rate [ Bilateral Throughout] Pulse Rate [ 104 H From Monitor] Respiratory 37 H 28 H Rate Respiratory Rate [Bilateral Throughout] Blood Pressure 172/86 146/78 181/92 O2 Sat by Pulse 94 96 96 Oximetry O2 Sat by Pulse 96 Oximetry [ Assessment] Constitutional: no acute distress, other (elderly obese male with mildly increased respiratory effort at rest) Eyes: non-icteric, other (subconjunctival hemorrhage) ENT: oropharynx moist, other (+ midline tracheostomy) Neck: supple, no lymphadenopathy, no JVD, other (large circumference) Effort: mildly labored Ascultation: Bilateral: diminished breath sounds, rales, rhonchi Percussion: Bilateral: not dull Cardiovascular: regular rate and rhythm, other (tachycardia, S1,S2) Gastrointestinal: normoactive bowel sounds, soft, non-tender, non-distended (protuberant), other (Good in place) Integumentary: normal Extremities: no cyanosis, pulses normal, no ischemia or petechiae, edema (upper extremities), other Neurologic: pupils equal and round, other (sedated) Psychiatric: other (unable to assess re: AMS) CBC and BMP: 04/15/21 04:44 04/15/21 04:44 ABG, PT/INR, D-dimer: ABG ABG pH 7.365 pH Units (7.350-7.450) 04/12/21 09:45 POC ABG pCO2 57.4 mmHg (32.0-48.0) H 04/06/21 04:49 ABG pCO2 73.4 mm Hg 04/12/21 09:45 POC ABG pO2 55.1 mmHg (83-108) L 04/06/21 04:49 ABG pO2 70.8 mm Hg (80.0-90.0) L 04/12/21 09:45 POC ABG HCO3 36.2 04/06/21 04:49 ABG O2 Saturation 96.3 % (95.0-99.0) 04/12/21 09:45 PT/INR, D-dimer PT 13.4 Sec. (12.2-14.9) 04/11/21 18:17 INR 0.92 (0.87-1.13) 04/11/21 18:17 D-Dimer 1359.12 ng/mlDDU (0-234) H 03/17/21 04:40 Abnormal lab findings: Abnormal Labs 03/08/21 03/08/21 03/08/21 20:24 20:24 20:24 WBC 22.6 H RBC 5.44 H Hgb 15.7 H Hct 49.2 H MCV MCHC RDW Plt Count Lymph % (Auto) Isabella % (Auto) Lymph # (Auto) Isabella # (Auto) Seg Neutrophils % Seg Neuts % (Manual) 83.0 H Lymphocytes % (Manual) 9.0 L Monocytes % (Manual) 8.0 H Nucleated RBC % Seg Neutrophils # Seg Neutrophils # Man 18.8 H Lymphocytes # (Manual) Monocytes # (Manual) 1.8 H PT 16.1 H INR 1.17 H APTT D-Dimer > 32351 H Heparin Anti-Xa Level ABG pH POC ABG pCO2 POC ABG pO2 ABG pO2 ABG HCO3 ABG O2 Saturation ABG Base Excess ABG Hemoglobin ABG Oxyhemoglobin ABG Sodium ABG Potassium ABG Glucose Oxyhemoglobin Sodium 136 L Potassium Chloride 93.9 L Carbon Dioxide BUN 29 H Creatinine Glucose 208 H POC Glucose Lactic Acid Calcium Phosphorus Magnesium Ferritin Lactate Dehydrogenase 624 H C-Reactive Protein 18.00 H NT-Pro-B Natriuret Pep 1053 H Total Protein Albumin Triglycerides Arterial Blood Glucose Ur Specific [place] Coronavirus (PCR) 03/08/21 03/08/21 03/09/21 20:24 20:24 04:10 WBC RBC Hgb Hct MCV MCHC RDW Plt Count Lymph % (Auto) [place]abella % (Auto) Lymph # (Auto) [place]abella # (Auto) Seg Neutrophils % Seg Neuts % (Manual) Lymphocytes % (Manual) Monocytes % (Manual) Nucleated RBC % Seg Neutrophils # Seg Neutrophils # Man Lymphocytes # (Manual) Monocytes # (Manual) PT INR APTT D-Dimer Heparin Anti-Xa Level ABG pH POC ABG pCO2 POC ABG pO2 ABG pO2 ABG HCO3 ABG O2 Saturation ABG Base Excess ABG Hemoglobin ABG Oxyhemoglobin ABG Sodium ABG Potassium ABG Glucose Oxyhemoglobin Sodium Potassium Chloride Carbon Dioxide BUN Creatinine Glucose POC Glucose Lactic Acid 2.10 H* Calcium Phosphorus Magnesium Ferritin 877.5 H Lactate Dehydrogenase C-Reactive Protein NT-Pro-B Natriuret Pep Total Protein Albumin Triglycerides Arterial Blood Glucose Ur Specific [place] 1.041 H Coronavirus (PCR) 03/09/21 03/09/21 03/09/21 07:46 08:00 13:01 WBC RBC Hgb Hct MCV MCHC RDW Plt Count Lymph % (Auto) [place]abella % (Auto) Lymph # (Auto) [place] # (Auto) Seg Neutrophils % Seg Neuts % (Manual) Lymphocytes % (Manual) Monocytes % (Manual) Nucleated RBC % Seg Neutrophils # Seg Neutrophils # Man Lymphocytes # (Manual) Monocytes # (Manual) PT INR APTT D-Dimer Heparin Anti-Xa Level ABG pH POC ABG pCO2 POC ABG pO2 ABG pO2 ABG HCO3 ABG O2 Saturation ABG Base Excess ABG Hemoglobin ABG Oxyhemoglobin ABG Sodium ABG Potassium ABG Glucose Oxyhemoglobin Sodium Potassium Chloride Carbon Dioxide BUN Creatinine Glucose POC Glucose 191 H 182 H Lactic Acid Calcium Phosphorus Magnesium Ferritin Lactate Dehydrogenase C-Reactive Protein NT-Pro-B Natriuret Pep Total Protein Albumin Triglycerides Arterial Blood Glucose Ur Specific [place] Coronavirus (PCR) Positive A 03/09/21 03/09/21 03/09/21 15:19 17:48 18:10 WBC RBC Hgb Hct MCV MCHC RDW Plt Count Lymph % (Auto) [place] % (Auto) Lymph # (Auto) [place] # (Auto) Seg Neutrophils % Seg Neuts % (Manual) Lymphocytes % (Manual) Monocytes % (Manual) Nucleated RBC % Seg Neutrophils # Seg Neutrophils # Man Lymphocytes # (Manual) Monocytes # (Manual) PT INR APTT D-Dimer Heparin Anti-Xa Level ABG pH POC ABG pCO2 POC ABG pO2 ABG pO2 47.3 L ABG HCO3 26.3 H ABG O2 Saturation 83.7 L ABG Base Excess ABG Hemoglobin ABG Oxyhemoglobin ABG Sodium ABG Potassium ABG Glucose Oxyhemoglobin 82.1 L Sodium Potassium Chloride Carbon Dioxide BUN 29 H Creatinine Glucose 214 H POC Glucose 194 H Lactic Acid Calcium Phosphorus Magnesium Ferritin Lactate Dehydrogenase C-Reactive Protein NT-Pro-B Natriuret Pep Total Protein Albumin 3.4 L Triglycerides Arterial Blood Glucose Ur Specific [place] Coronavirus (PCR) 03/09/21 03/10/21 03/10/21 20:40 04:29 04:29 WBC 20.6 H RBC 5.07 H Hgb Hct 46.2 H MCV MCHC RDW Plt Count Lymph % (Auto) [place] % (Auto) Lymph # (Auto) [place] # (Auto) Seg Neutrophils % Seg Neuts % (Manual) 94.0 H Lymphocytes % (Manual) 1.0 L Monocytes % (Manual) Nucleated RBC % 3.0 H Seg Neutrophils # Seg Neutrophils # Man 19.4 H Lymphocytes # (Manual) 0.2 L Monocytes # (Manual) 1.0 H PT INR APTT D-Dimer Heparin Anti-Xa Level ABG pH POC ABG pCO2 POC ABG pO2 ABG pO2 ABG HCO3 ABG O2 Saturation ABG Base Excess ABG Hemoglobin ABG Oxyhemoglobin ABG Sodium ABG Potassium ABG Glucose Oxyhemoglobin Sodium Potassium Chloride Carbon Dioxide BUN 29 H Creatinine Glucose 188 H POC Glucose 176 H Lactic Acid Calcium Phosphorus Magnesium Ferritin Lactate Dehydrogenase C-Reactive Protein NT-Pro-B Natriuret Pep Total Protein Albumin 3.3 L Triglycerides Arterial Blood Glucose Ur Specific [place] Coronavirus (PCR) 03/10/21 03/10/21 03/10/21 05:22 10:27 15:25 WBC RBC Hgb Hct MCV MCHC RDW Plt Count Lymph % (Auto) [place] % (Auto) Lymph # (Auto) [place] # (Auto) Seg Neutrophils % Seg Neuts % (Manual) Lymphocytes % (Manual) Monocytes % (Manual) Nucleated RBC % Seg Neutrophils # Seg Neutrophils # Man Lymphocytes # (Manual) Monocytes # (Manual) PT INR APTT D-Dimer Heparin Anti-Xa Level ABG pH 7.488 H 7.488 H POC ABG pCO2 POC ABG pO2 ABG pO2 47.7 L 50.5 L ABG HCO3 ABG O2 Saturation 86.2 L 87.9 L ABG Base Excess ABG Hemoglobin ABG Oxyhemoglobin ABG Sodium ABG Potassium ABG Glucose Oxyhemoglobin 84.6 L 86.2 L Sodium Potassium Chloride Carbon Dioxide BUN Creatinine Glucose POC Glucose 155 H Lactic Acid Calcium Phosphorus Magnesium Ferritin Lactate Dehydrogenase C-Reactive Protein NT-Pro-B Natriuret Pep Total Protein Albumin Triglycerides Arterial Blood Glucose Ur Specific [place] Coronavirus (PCR) 03/10/21 03/10/21 03/11/21 18:10 18:55 00:07 WBC RBC Hgb Hct MCV MCHC RDW Plt Count Lymph % (Auto) [place] % (Auto) Lymph # (Auto) [place] # (Auto) Seg Neutrophils % Seg Neuts % (Manual) Lymphocytes % (Manual) Monocytes % (Manual) Nucleated RBC % Seg Neutrophils # Seg Neutrophils # Man Lymphocytes # (Manual) Monocytes # (Manual) PT INR APTT D-Dimer Heparin Anti-Xa Level ABG pH 7.343 L POC ABG pCO2 POC ABG pO2 ABG pO2 60.4 L ABG HCO3 27.9 H ABG O2 Saturation 88.7 L ABG Base Excess ABG Hemoglobin ABG Oxyhemoglobin ABG Sodium ABG Potassium ABG Glucose Oxyhemoglobin 86.9 L Sodium Potassium Chloride Carbon Dioxide BUN Creatinine Glucose POC Glucose 187 H 139 H Lactic Acid Calcium Phosphorus Magnesium Ferritin Lactate Dehydrogenase C-Reactive Protein NT-Pro-B Natriuret Pep Total Protein Albumin Triglycerides Arterial Blood Glucose Ur Specific [place] Coronavirus (PCR) 03/11/21 03/11/21 03/11/21 02:09 04:28 08:06 WBC RBC Hgb Hct MCV MCHC RDW Plt Count Lymph % (Auto) [place] % (Auto) Lymph # (Auto) [place] # (Auto) Seg Neutrophils % Seg Neuts % (Manual) Lymphocytes % (Manual) Monocytes % (Manual) Nucleated RBC % Seg Neutrophils # Seg Neutrophils # Man Lymphocytes # (Manual) Monocytes # (Manual) PT INR APTT D-Dimer Heparin Anti-Xa Level ABG pH 7.277 L POC ABG pCO2 55.9 H POC ABG pO2 54.4 L ABG pO2 ABG HCO3 ABG O2 Saturation ABG Base Excess ABG Hemoglobin ABG Oxyhemoglobin 83.0 L ABG Sodium ABG Potassium 4.8 H ABG Glucose 180 H Oxyhemoglobin Sodium Potassium Chloride Carbon Dioxide BUN 38 H Creatinine Glucose 249 H POC Glucose 278 H Lactic Acid Calcium Phosphorus Magnesium Ferritin Lactate Dehydrogenase C-Reactive Protein NT-Pro-B Natriuret Pep Total Protein Albumin 3.2 L Triglycerides Arterial Blood Glucose 180 H Ur Specific [place] Coronavirus (PCR) 03/11/21 03/11/21 03/11/21 11:29 15:06 15:48 WBC RBC Hgb Hct MCV MCHC RDW Plt Count Lymph % (Auto) [place] % (Auto) Lymph # (Auto) [place] # (Auto) Seg Neutrophils % Seg Neuts % (Manual) Lymphocytes % (Manual) Monocytes % (Manual) Nucleated RBC % Seg Neutrophils # Seg Neutrophils # Man Lymphocytes # (Manual) Monocytes # (Manual) PT INR APTT D-Dimer Heparin Anti-Xa Level ABG pH 7.260 L POC ABG pCO2 POC ABG pO2 ABG pO2 53.5 L ABG HCO3 29.5 H ABG O2 Saturation 84.0 L ABG Base Excess ABG Hemoglobin ABG Oxyhemoglobin ABG Sodium ABG Potassium ABG Glucose Oxyhemoglobin 82.3 L Sodium Potassium Chloride Carbon Dioxide BUN Creatinine Glucose POC Glucose 288 H 295 H Lactic Acid Calcium Phosphorus Magnesium Ferritin Lactate Dehydrogenase C-Reactive Protein NT-Pro-B Natriuret Pep Total Protein Albumin Triglycerides Arterial Blood Glucose Ur Specific [place] Coronavirus (PCR) 03/12/21 03/12/21 03/12/21 00:01 05:24 08:03 WBC RBC Hgb Hct MCV MCHC RDW Plt Count Lymph % (Auto) [place] % (Auto) Lymph # (Auto) [place] # (Auto) Seg Neutrophils % Seg Neuts % (Manual) Lymphocytes % (Manual) Monocytes % (Manual) Nucleated RBC % Seg Neutrophils # Seg Neutrophils # Man Lymphocytes # (Manual) Monocytes # (Manual) PT INR APTT D-Dimer Heparin Anti-Xa Level ABG pH POC ABG pCO2 POC ABG pO2 ABG pO2 ABG HCO3 ABG O2 Saturation ABG Base Excess ABG Hemoglobin ABG Oxyhemoglobin ABG Sodium ABG Potassium ABG Glucose Oxyhemoglobin Sodium 135 L Potassium Chloride Carbon Dioxide BUN 48 H Creatinine Glucose 358 H POC Glucose 304 H 310 H Lactic Acid Calcium Phosphorus Magnesium Ferritin Lactate Dehydrogenase C-Reactive Protein NT-Pro-B Natriuret Pep Total Protein 6.0 L Albumin 2.9 L Triglycerides Arterial Blood Glucose Ur Specific [place] Coronavirus (PCR) 03/12/21 03/12/21 03/12/21 08:03 10:43 11:31 WBC 14.6 H RBC Hgb Hct MCV MCHC RDW Plt Count Lymph % (Auto) [place] % (Auto) Lymph # (Auto) [place] # (Auto) Seg Neutrophils % Seg Neuts % (Manual) Lymphocytes % (Manual) Monocytes % (Manual) Nucleated RBC % Seg Neutrophils # Seg Neutrophils # Man Lymphocytes # (Manual) Monocytes # (Manual) PT INR APTT D-Dimer Heparin Anti-Xa Level ABG pH 7.248 L POC ABG pCO2 POC ABG pO2 ABG pO2 73.7 L ABG HCO3 32.0 H ABG O2 Saturation 93.9 L ABG Base Excess ABG Hemoglobin ABG Oxyhemoglobin ABG Sodium ABG Potassium ABG Glucose Oxyhemoglobin 92.1 L Sodium Potassium Chloride Carbon Dioxide BUN Creatinine Glucose POC Glucose 359 H Lactic Acid Calcium Phosphorus Magnesium Ferritin Lactate Dehydrogenase C-Reactive Protein NT-Pro-B Natriuret Pep Total Protein Albumin Triglycerides Arterial Blood Glucose Ur Specific [place] Coronavirus (PCR) 03/12/21 03/12/21 03/13/21 17:20 21:54 00:02 WBC RBC Hgb Hct MCV MCHC RDW Plt Count Lymph % (Auto) [place] % (Auto) Lymph # (Auto) [place] # (Auto) Seg Neutrophils % Seg Neuts % (Manual) Lymphocytes % (Manual) Monocytes % (Manual) Nucleated RBC % Seg Neutrophils # Seg Neutrophils # Man Lymphocytes # (Manual) Monocytes # (Manual) PT INR APTT D-Dimer Heparin Anti-Xa Level ABG pH 7.238 L POC ABG pCO2 71.9 H POC ABG pO2 53.6 L ABG pO2 ABG HCO3 ABG O2 Saturation ABG Base Excess ABG Hemoglobin ABG Oxyhemoglobin 84.8 L ABG Sodium 134.2 L ABG Potassium 4.9 H ABG Glucose 306 H Oxyhemoglobin Sodium Potassium Chloride Carbon Dioxide BUN Creatinine Glucose POC Glucose 374 H 308 H Lactic Acid Calcium Phosphorus Magnesium Ferritin Lactate Dehydrogenase C-Reactive Protein NT-Pro-B Natriuret Pep Total Protein Albumin Triglycerides Arterial Blood Glucose 306 H Ur Specific [place] Coronavirus (PCR) 03/13/21 03/13/21 03/13/21 05:22 05:44 05:44 WBC 13.9 H RBC Hgb Hct MCV MCHC RDW Plt Count Lymph % (Auto) [place] % (Auto) Lymph # (Auto) [place]abella # (Auto) Seg Neutrophils % Seg Neuts % (Manual) Lymphocytes % (Manual) Monocytes % (Manual) Nucleated RBC % Seg Neutrophils # Seg Neutrophils # Man Lymphocytes # (Manual) Monocytes # (Manual) PT INR APTT D-Dimer 3567.97 H Heparin Anti-Xa Level ABG pH POC ABG pCO2 POC ABG pO2 ABG pO2 ABG HCO3 ABG O2 Saturation ABG Base Excess ABG Hemoglobin ABG Oxyhemoglobin ABG Sodium ABG Potassium ABG Glucose Oxyhemoglobin Sodium Potassium Chloride Carbon Dioxide BUN Creatinine Glucose POC Glucose 316 H Lactic Acid Calcium Phosphorus Magnesium Ferritin Lactate Dehydrogenase C-Reactive Protein NT-Pro-B Natriuret Pep Total Protein Albumin Triglycerides Arterial Blood Glucose Ur Specific [place] Coronavirus (PCR) 03/13/21 03/13/21 03/13/21 05:44 05:44 11:15 WBC RBC Hgb Hct MCV MCHC RDW Plt Count Lymph % (Auto) [place] % (Auto) Lymph # (Auto) [place] # (Auto) Seg Neutrophils % Seg Neuts % (Manual) Lymphocytes % (Manual) Monocytes % (Manual) Nucleated RBC % Seg Neutrophils # Seg Neutrophils # Man Lymphocytes # (Manual) Monocytes # (Manual) PT INR APTT D-Dimer Heparin Anti-Xa Level ABG pH 7.310 L POC ABG pCO2 POC ABG pO2 ABG pO2 52.3 L ABG HCO3 34.1 H ABG O2 Saturation 86.8 L ABG Base Excess 5.5 H ABG Hemoglobin 13.8 L ABG Oxyhemoglobin ABG Sodium ABG Potassium ABG Glucose Oxyhemoglobin 85.1 L Sodium Potassium Chloride Carbon Dioxide BUN Creatinine Glucose POC Glucose Lactic Acid Calcium Phosphorus Magnesium Ferritin 858.7 H Lactate Dehydrogenase 348 H C-Reactive Protein 2.80 H NT-Pro-B Natriuret Pep Total Protein Albumin Triglycerides Arterial Blood Glucose Ur Specific [place] Coronavirus (PCR) 03/13/21 03/13/21 03/13/21 11:21 15:47 19:23 WBC RBC Hgb Hct MCV MCHC RDW Plt Count Lymph % (Auto) [place] % (Auto) Lymph # (Auto) [place]abella # (Auto) Seg Neutrophils % Seg Neuts % (Manual) Lymphocytes % (Manual) Monocytes % (Manual) Nucleated RBC % Seg Neutrophils # Seg Neutrophils # Man Lymphocytes # (Manual) Monocytes # (Manual) PT INR APTT D-Dimer Heparin Anti-Xa Level ABG pH POC ABG pCO2 POC ABG pO2 ABG pO2 ABG HCO3 ABG O2 Saturation ABG Base Excess ABG Hemoglobin ABG Oxyhemoglobin ABG Sodium ABG Potassium ABG Glucose Oxyhemoglobin Sodium 136 L Potassium 5.9 H Chloride Carbon Dioxide BUN 50 H Creatinine Glucose 397 H POC Glucose 322 H 317 H Lactic Acid Calcium Phosphorus Magnesium Ferritin Lactate Dehydrogenase C-Reactive Protein NT-Pro-B Natriuret Pep Total Protein Albumin Triglycerides Arterial Blood Glucose Ur Specific [place] Coronavirus (PCR) 03/13/21 03/14/21 03/14/21 23:46 05:32 05:50 WBC 11.6 H RBC Hgb Hct MCV MCHC RDW Plt Count Lymph % (Auto) [place] % (Auto) Lymph # (Auto) [place] # (Auto) Seg Neutrophils % Seg Neuts % (Manual) Lymphocytes % (Manual) Monocytes % (Manual) Nucleated RBC % Seg Neutrophils # Seg Neutrophils # Man Lymphocytes # (Manual) Monocytes # (Manual) PT INR APTT D-Dimer Heparin Anti-Xa Level ABG pH POC ABG pCO2 POC ABG pO2 ABG pO2 ABG HCO3 ABG O2 Saturation ABG Base Excess ABG Hemoglobin ABG Oxyhemoglobin ABG Sodium ABG Potassium ABG Glucose Oxyhemoglobin Sodium Potassium Chloride Carbon Dioxide BUN Creatinine Glucose POC Glucose 332 H 316 H Lactic Acid Calcium Phosphorus Magnesium Ferritin Lactate Dehydrogenase C-Reactive Protein NT-Pro-B Natriuret Pep Total Protein Albumin Triglycerides Arterial Blood Glucose Ur Specific [place] Coronavirus (PCR) 03/14/21 03/14/21 03/14/21 05:50 11:33 16:53 WBC RBC Hgb Hct MCV MCHC RDW Plt Count Lymph % (Auto) [place] % (Auto) Lymph # (Auto) [place] # (Auto) Seg Neutrophils % Seg Neuts % (Manual) Lymphocytes % (Manual) Monocytes % (Manual) Nucleated RBC % Seg Neutrophils # Seg Neutrophils # Man Lymphocytes # (Manual) Monocytes # (Manual) PT INR APTT D-Dimer Heparin Anti-Xa Level ABG pH POC ABG pCO2 POC ABG pO2 ABG pO2 ABG HCO3 ABG O2 Saturation ABG Base Excess ABG Hemoglobin ABG Oxyhemoglobin ABG Sodium ABG Potassium ABG Glucose Oxyhemoglobin Sodium Potassium 5.9 H Chloride Carbon Dioxide 31 H BUN 48 H Creatinine Glucose 380 H POC Glucose 315 H 235 H Lactic Acid Calcium Phosphorus Magnesium 3.40 H Ferritin Lactate Dehydrogenase C-Reactive Protein NT-Pro-B Natriuret Pep Total Protein Albumin Triglycerides Arterial Blood Glucose Ur Specific [place] Coronavirus (PCR) 03/14/21 03/14/21 03/15/21 18:34 23:27 01:22 WBC RBC Hgb Hct 46.3 H MCV MCHC RDW Plt Count Lymph % (Auto) [place] % (Auto) Lymph # (Auto) [place] # (Auto) Seg Neutrophils % Seg Neuts % (Manual) Lymphocytes % (Manual) Monocytes % (Manual) Nucleated RBC % Seg Neutrophils # Seg Neutrophils # Man Lymphocytes # (Manual) Monocytes # (Manual) PT INR APTT D-Dimer Heparin Anti-Xa Level ABG pH POC ABG pCO2 POC ABG pO2 ABG pO2 ABG HCO3 ABG O2 Saturation ABG Base Excess ABG Hemoglobin ABG Oxyhemoglobin ABG Sodium ABG Potassium ABG Glucose Oxyhemoglobin Sodium 146 H Potassium Chloride Carbon Dioxide 34 H BUN 49 H Creatinine Glucose 285 H POC Glucose 203 H Lactic Acid Calcium Phosphorus Magnesium Ferritin Lactate Dehydrogenase C-Reactive Protein NT-Pro-B Natriuret Pep Total Protein Albumin Triglycerides Arterial Blood Glucose Ur Specific [place] Coronavirus (PCR) 03/15/21 03/15/21 03/15/21 04:00 06:06 06:06 WBC RBC Hgb Hct MCV MCHC RDW Plt Count Lymph % (Auto) [place] % (Auto) Lymph # (Auto) [place] # (Auto) Seg Neutrophils % Seg Neuts % (Manual) Lymphocytes % (Manual) Monocytes % (Manual) Nucleated RBC % Seg Neutrophils # Seg Neutrophils # Man Lymphocytes # (Manual) Monocytes # (Manual) PT INR APTT D-Dimer 1781.79 H Heparin Anti-Xa Level ABG pH POC ABG pCO2 POC ABG pO2 ABG pO2 ABG HCO3 ABG O2 Saturation ABG Base Excess ABG Hemoglobin ABG Oxyhemoglobin ABG Sodium ABG Potassium ABG Glucose Oxyhemoglobin Sodium 148 H Potassium 5.7 H D Chloride 108.0 H Carbon Dioxide 31 H BUN 46 H Creatinine Glucose 139 H POC Glucose Lactic Acid Calcium Phosphorus 4.80 H D Magnesium 3.00 H Ferritin 976.4 H Lactate Dehydrogenase 630 H C-Reactive Protein NT-Pro-B Natriuret Pep Total Protein Albumin Triglycerides Arterial Blood Glucose Ur Specific [place] Coronavirus (PCR) 03/15/21 03/15/21 03/15/21 11:56 14:05 17:09 WBC RBC Hgb Hct MCV MCHC RDW Plt Count Lymph % (Auto) [place] % (Auto) Lymph # (Auto) [place] # (Auto) Seg Neutrophils % Seg Neuts % (Manual) Lymphocytes % (Manual) Monocytes % (Manual) Nucleated RBC % Seg Neutrophils # Seg Neutrophils # Man Lymphocytes # (Manual) Monocytes # (Manual) PT INR APTT D-Dimer Heparin Anti-Xa Level ABG pH POC ABG pCO2 POC ABG pO2 ABG pO2 52.1 L ABG HCO3 36.6 H ABG O2 Saturation 87.6 L ABG Base Excess 9.5 H ABG Hemoglobin ABG Oxyhemoglobin ABG Sodium ABG Potassium ABG Glucose Oxyhemoglobin 85.7 L Sodium Potassium Chloride Carbon Dioxide BUN Creatinine Glucose POC Glucose 219 H 263 H Lactic Acid Calcium Phosphorus Magnesium Ferritin Lactate Dehydrogenase C-Reactive Protein NT-Pro-B Natriuret Pep Total Protein Albumin Triglycerides Arterial Blood Glucose Ur Specific [place] Coronavirus (PCR) 03/16/21 03/16/21 03/16/21 00:32 04:11 04:11 WBC 11.9 H RBC Hgb Hct MCV MCHC 30 L RDW Plt Count Lymph % (Auto) [place] % (Auto) Lymph # (Auto) [place] # (Auto) Seg Neutrophils % Seg Neuts % (Manual) Lymphocytes % (Manual) Monocytes % (Manual) Nucleated RBC % Seg Neutrophils # Seg Neutrophils # Man Lymphocytes # (Manual) Monocytes # (Manual) PT INR APTT D-Dimer Heparin Anti-Xa Level ABG pH POC ABG pCO2 POC ABG pO2 ABG pO2 ABG HCO3 ABG O2 Saturation ABG Base Excess ABG Hemoglobin ABG Oxyhemoglobin ABG Sodium ABG Potassium ABG Glucose Oxyhemoglobin Sodium 151 H Potassium Chloride Carbon Dioxide 35 H BUN 48 H Creatinine Glucose 152 H POC Glucose 165 H Lactic Acid Calcium Phosphorus Magnesium Ferritin Lactate Dehydrogenase C-Reactive Protein NT-Pro-B Natriuret Pep Total Protein Albumin Triglycerides Arterial Blood Glucose Ur Specific [place] Coronavirus (PCR) 03/16/21 03/16/21 03/16/21 04:11 05:26 11:35 WBC RBC Hgb Hct MCV MCHC RDW Plt Count Lymph % (Auto) [place] % (Auto) Lymph # (Auto) [place] # (Auto) Seg Neutrophils % Seg Neuts % (Manual) Lymphocytes % (Manual) Monocytes % (Manual) Nucleated RBC % Seg Neutrophils # Seg Neutrophils # Man Lymphocytes # (Manual) Monocytes # (Manual) PT INR APTT D-Dimer Heparin Anti-Xa Level ABG pH POC ABG pCO2 POC ABG pO2 ABG pO2 ABG HCO3 ABG O2 Saturation ABG Base Excess ABG Hemoglobin ABG Oxyhemoglobin ABG Sodium ABG Potassium ABG Glucose Oxyhemoglobin Sodium Potassium Chloride Carbon Dioxide BUN Creatinine Glucose POC Glucose 162 H 187 H Lactic Acid Calcium Phosphorus Magnesium Ferritin Lactate Dehydrogenase C-Reactive Protein NT-Pro-B Natriuret Pep Total Protein Albumin Triglycerides 267 H Arterial Blood Glucose Ur Specific [place] Coronavirus (PCR) 03/16/21 03/16/21 03/16/21 17:29 22:25 23:22 WBC RBC Hgb Hct MCV MCHC RDW Plt Count Lymph % (Auto) [place] % (Auto) Lymph # (Auto) [place] # (Auto) Seg Neutrophils % Seg Neuts % (Manual) Lymphocytes % (Manual) Monocytes % (Manual) Nucleated RBC % Seg Neutrophils # Seg Neutrophils # Man Lymphocytes # (Manual) Monocytes # (Manual) PT INR APTT D-Dimer Heparin Anti-Xa Level ABG pH POC ABG pCO2 POC ABG pO2 ABG pO2 ABG HCO3 ABG O2 Saturation ABG Base Excess ABG Hemoglobin ABG Oxyhemoglobin ABG Sodium ABG Potassium ABG Glucose Oxyhemoglobin Sodium Potassium Chloride Carbon Dioxide BUN Creatinine Glucose POC Glucose 237 H 165 H 189 H Lactic Acid Calcium Phosphorus Magnesium Ferritin Lactate Dehydrogenase C-Reactive Protein NT-Pro-B Natriuret Pep Total Protein Albumin Triglycerides Arterial Blood Glucose Ur Specific [place] Coronavirus (PCR) 03/17/21 03/17/21 03/17/21 04:40 04:40 04:40 WBC 14.1 H RBC Hgb Hct MCV MCHC RDW 15.3 H Plt Count Lymph % (Auto) 12.6 L [place] % (Auto) 11.3 H Lymph # (Auto) [place] # (Auto) 1.6 H Seg Neutrophils % 74.9 H Seg Neuts % (Manual) Lymphocytes % (Manual) Monocytes % (Manual) Nucleated RBC % Seg Neutrophils # 10.5 H Seg Neutrophils # Man Lymphocytes # (Manual) Monocytes # (Manual) PT INR APTT D-Dimer 1359.12 H Heparin Anti-Xa Level ABG pH POC ABG pCO2 POC ABG pO2 ABG pO2 ABG HCO3 ABG O2 Saturation ABG Base Excess ABG Hemoglobin ABG Oxyhemoglobin ABG Sodium ABG Potassium ABG Glucose Oxyhemoglobin Sodium 148 H Potassium Chloride 107.5 H Carbon Dioxide 33 H BUN 42 H Creatinine Glucose 183 H POC Glucose Lactic Acid Calcium Phosphorus Magnesium 2.70 H Ferritin Lactate Dehydrogenase C-Reactive Protein NT-Pro-B Natriuret Pep Total Protein Albumin Triglycerides Arterial Blood Glucose Ur Specific [place] Coronavirus (PCR) 03/17/21 03/17/21 03/17/21 05:53 11:05 11:51 WBC RBC Hgb Hct MCV MCHC RDW Plt Count Lymph % (Auto) [place] % (Auto) Lymph # (Auto) [place] # (Auto) Seg Neutrophils % Seg Neuts % (Manual) Lymphocytes % (Manual) Monocytes % (Manual) Nucleated RBC % Seg Neutrophils # Seg Neutrophils # Man Lymphocytes # (Manual) Monocytes # (Manual) PT INR APTT D-Dimer Heparin Anti-Xa Level ABG pH POC ABG pCO2 POC ABG pO2 ABG pO2 ABG HCO3 35.7 H ABG O2 Saturation ABG Base Excess 8.7 H ABG Hemoglobin ABG Oxyhemoglobin ABG Sodium ABG Potassium ABG Glucose Oxyhemoglobin 94.2 L Sodium Potassium Chloride Carbon Dioxide BUN Creatinine Glucose POC Glucose 176 H 197 H Lactic Acid Calcium Phosphorus Magnesium Ferritin Lactate Dehydrogenase C-Reactive Protein NT-Pro-B Natriuret Pep Total Protein Albumin Triglycerides Arterial Blood Glucose Ur Specific [place] Coronavirus (PCR) 03/17/21 03/17/21 03/17/21 16:54 21:10 23:33 WBC RBC Hgb Hct MCV MCHC RDW Plt Count Lymph % (Auto) [place] % (Auto) Lymph # (Auto) [place] # (Auto) Seg Neutrophils % Seg Neuts % (Manual) Lymphocytes % (Manual) Monocytes % (Manual) Nucleated RBC % Seg Neutrophils # Seg Neutrophils # Man Lymphocytes # (Manual) Monocytes # (Manual) PT INR APTT D-Dimer Heparin Anti-Xa Level ABG pH POC ABG pCO2 POC ABG pO2 ABG pO2 ABG HCO3 ABG O2 Saturation ABG Base Excess ABG Hemoglobin ABG Oxyhemoglobin ABG Sodium ABG Potassium ABG Glucose Oxyhemoglobin Sodium Potassium Chloride Carbon Dioxide BUN Creatinine Glucose POC Glucose 135 H 160 H 138 H Lactic Acid Calcium Phosphorus Magnesium Ferritin Lactate Dehydrogenase C-Reactive Protein NT-Pro-B Natriuret Pep Total Protein Albumin Triglycerides Arterial Blood Glucose Ur Specific [place] Coronavirus (PCR) 03/18/21 03/18/21 03/18/21 04:18 04:50 05:43 WBC RBC Hgb Hct MCV MCHC RDW Plt Count Lymph % (Auto) [place] % (Auto) Lymph # (Auto) [place] # (Auto) Seg Neutrophils % Seg Neuts % (Manual) Lymphocytes % (Manual) Monocytes % (Manual) Nucleated RBC % Seg Neutrophils # Seg Neutrophils # Man Lymphocytes # (Manual) Monocytes # (Manual) PT INR APTT D-Dimer Heparin Anti-Xa Level ABG pH POC ABG pCO2 POC ABG pO2 ABG pO2 59.8 L ABG HCO3 36.5 H ABG O2 Saturation 90.7 L ABG Base Excess 9.4 H ABG Hemoglobin 12.0 L ABG Oxyhemoglobin ABG Sodium ABG Potassium ABG Glucose Oxyhemoglobin 88.9 L Sodium Potassium Chloride 107.2 H Carbon Dioxide 34 H BUN 38 H Creatinine 0.7 L Glucose 136 H POC Glucose 128 H Lactic Acid Calcium Phosphorus Magnesium Ferritin Lactate Dehydrogenase C-Reactive Protein NT-Pro-B Natriuret Pep Total Protein Albumin Triglycerides Arterial Blood Glucose Ur Specific [place] Coronavirus (PCR) 03/18/21 03/18/21 03/18/21 11:20 17:35 23:35 WBC RBC Hgb Hct MCV MCHC RDW Plt Count Lymph % (Auto) [place] % (Auto) Lymph # (Auto) [place] # (Auto) Seg Neutrophils % Seg Neuts % (Manual) Lymphocytes % (Manual) Monocytes % (Manual) Nucleated RBC % Seg Neutrophils # Seg Neutrophils # Man Lymphocytes # (Manual) Monocytes # (Manual) PT INR APTT D-Dimer Heparin Anti-Xa Level ABG pH POC ABG pCO2 POC ABG pO2 ABG pO2 70.7 L ABG HCO3 33.6 H ABG O2 Saturation ABG Base Excess 8.0 H ABG Hemoglobin ABG Oxyhemoglobin ABG Sodium ABG Potassium ABG Glucose Oxyhemoglobin 93.7 L Sodium Potassium Chloride Carbon Dioxide BUN Creatinine Glucose POC Glucose 189 H 144 H Lactic Acid Calcium Phosphorus Magnesium Ferritin Lactate Dehydrogenase C-Reactive Protein NT-Pro-B Natriuret Pep Total Protein Albumin Triglycerides Arterial Blood Glucose Ur Specific [place] Coronavirus (PCR) 03/19/21 03/19/21 03/19/21 02:35 04:20 04:20 WBC 14.0 H RBC Hgb Hct MCV MCHC RDW Plt Count Lymph % (Auto) [place] % (Auto) Lymph # (Auto) [place] # (Auto) Seg Neutrophils % Seg Neuts % (Manual) Lymphocytes % (Manual) Monocytes % (Manual) Nucleated RBC % Seg Neutrophils # Seg Neutrophils # Man Lymphocytes # (Manual) Monocytes # (Manual) PT INR APTT D-Dimer Heparin Anti-Xa Level ABG pH POC ABG pCO2 POC ABG pO2 ABG pO2 ABG HCO3 32.0 H ABG O2 Saturation ABG Base Excess 5.2 H ABG Hemoglobin 13.6 L ABG Oxyhemoglobin ABG Sodium ABG Potassium ABG Glucose Oxyhemoglobin 94.6 L Sodium 146 H Potassium Chloride 109.3 H Carbon Dioxide BUN 36 H Creatinine Glucose 203 H POC Glucose Lactic Acid Calcium Phosphorus Magnesium Ferritin Lactate Dehydrogenase C-Reactive Protein NT-Pro-B Natriuret Pep Total Protein Albumin Triglycerides 254 H Arterial Blood Glucose Ur Specific [place] Coronavirus (PCR) 03/19/21 03/19/21 03/19/21 05:45 11:36 23:51 WBC RBC Hgb Hct MCV MCHC RDW Plt Count Lymph % (Auto) [place] % (Auto) Lymph # (Auto) [place] # (Auto) Seg Neutrophils % Seg Neuts % (Manual) Lymphocytes % (Manual) Monocytes % (Manual) Nucleated RBC % Seg Neutrophils # Seg Neutrophils # Man Lymphocytes # (Manual) Monocytes # (Manual) PT INR APTT D-Dimer Heparin Anti-Xa Level ABG pH POC ABG pCO2 POC ABG pO2 ABG pO2 ABG HCO3 ABG O2 Saturation ABG Base Excess ABG Hemoglobin ABG Oxyhemoglobin ABG Sodium ABG Potassium ABG Glucose Oxyhemoglobin Sodium Potassium Chloride Carbon Dioxide BUN Creatinine Glucose POC Glucose 164 H 172 H 140 H Lactic Acid Calcium Phosphorus Magnesium Ferritin Lactate Dehydrogenase C-Reactive Protein NT-Pro-B Natriuret Pep Total Protein Albumin Triglycerides Arterial Blood Glucose Ur Specific [place] Coronavirus (PCR) 03/20/21 03/20/21 03/20/21 03:29 04:45 04:45 WBC RBC Hgb Hct MCV 95 H MCHC RDW 15.7 H Plt Count Lymph % (Auto) [place] % (Auto) Lymph # (Auto) [place] # (Auto) Seg Neutrophils % Seg Neuts % (Manual) Lymphocytes % (Manual) Monocytes % (Manual) Nucleated RBC % Seg Neutrophils # Seg Neutrophils # Man Lymphocytes # (Manual) Monocytes # (Manual) PT INR APTT D-Dimer Heparin Anti-Xa Level ABG pH 7.349 L POC ABG pCO2 POC ABG pO2 ABG pO2 ABG HCO3 33.7 H ABG O2 Saturation ABG Base Excess 6.4 H ABG Hemoglobin 11.8 L ABG Oxyhemoglobin ABG Sodium ABG Potassium ABG Glucose Oxyhemoglobin 93.9 L Sodium 146 H Potassium 5.5 H Chloride 111.1 H Carbon Dioxide BUN 34 H Creatinine 0.7 L Glucose 145 H POC Glucose Lactic Acid Calcium Phosphorus Magnesium 2.50 H Ferritin Lactate Dehydrogenase C-Reactive Protein NT-Pro-B Natriuret Pep Total Protein Albumin Triglycerides Arterial Blood Glucose Ur Specific [place] Coronavirus (PCR) 03/20/21 03/20/21 03/20/21 05:41 09:08 11:54 WBC RBC Hgb Hct MCV MCHC RDW Plt Count Lymph % (Auto) [place] % (Auto) Lymph # (Auto) [place] # (Auto) Seg Neutrophils % Seg Neuts % (Manual) Lymphocytes % (Manual) Monocytes % (Manual) Nucleated RBC % Seg Neutrophils # Seg Neutrophils # Man Lymphocytes # (Manual) Monocytes # (Manual) PT INR APTT D-Dimer Heparin Anti-Xa Level ABG pH POC ABG pCO2 POC ABG pO2 ABG pO2 ABG HCO3 ABG O2 Saturation ABG Base Excess ABG Hemoglobin ABG Oxyhemoglobin ABG Sodium ABG Potassium ABG Glucose Oxyhemoglobin Sodium Potassium Chloride Carbon Dioxide BUN Creatinine Glucose POC Glucose 108 H 132 H 162 H Lactic Acid Calcium Phosphorus Magnesium Ferritin Lactate Dehydrogenase C-Reactive Protein NT-Pro-B Natriuret Pep Total Protein Albumin Triglycerides Arterial Blood Glucose Ur Specific [place] Coronavirus (PCR) 03/20/21 03/21/21 03/21/21 17:28 00:31 04:44 WBC RBC Hgb Hct MCV MCHC RDW Plt Count Lymph % (Auto) [place] % (Auto) Lymph # (Auto) [place] # (Auto) Seg Neutrophils % Seg Neuts % (Manual) Lymphocytes % (Manual) Monocytes % (Manual) Nucleated RBC % Seg Neutrophils # Seg Neutrophils # Man Lymphocytes # (Manual) Monocytes # (Manual) PT INR APTT D-Dimer Heparin Anti-Xa Level ABG pH POC ABG pCO2 POC ABG pO2 ABG pO2 ABG HCO3 ABG O2 Saturation ABG Base Excess ABG Hemoglobin ABG Oxyhemoglobin ABG Sodium ABG Potassium ABG Glucose Oxyhemoglobin Sodium Potassium Chloride 108.3 H Carbon Dioxide BUN 30 H Creatinine 0.7 L Glucose POC Glucose 160 H 122 H Lactic Acid Calcium Phosphorus Magnesium Ferritin Lactate Dehydrogenase C-Reactive Protein NT-Pro-B Natriuret Pep Total Protein Albumin Triglycerides Arterial Blood Glucose Ur Specific [place] Coronavirus (PCR) 03/21/21 03/21/21 03/21/21 09:18 10:09 13:20 WBC RBC Hgb Hct MCV MCHC RDW Plt Count Lymph % (Auto) [place] % (Auto) Lymph # (Auto) [place] # (Auto) Seg Neutrophils % Seg Neuts % (Manual) Lymphocytes % (Manual) Monocytes % (Manual) Nucleated RBC % Seg Neutrophils # Seg Neutrophils # Man Lymphocytes # (Manual) Monocytes # (Manual) PT INR APTT D-Dimer Heparin Anti-Xa Level ABG pH POC ABG pCO2 POC ABG pO2 ABG pO2 60.7 L ABG HCO3 30.6 H ABG O2 Saturation 93.6 L ABG Base Excess 5.3 H ABG Hemoglobin ABG Oxyhemoglobin ABG Sodium ABG Potassium ABG Glucose Oxyhemoglobin 91.7 L Sodium Potassium Chloride Carbon Dioxide BUN Creatinine Glucose POC Glucose 169 H 122 H Lactic Acid Calcium Phosphorus Magnesium Ferritin Lactate Dehydrogenase C-Reactive Protein NT-Pro-B Natriuret Pep Total Protein Albumin Triglycerides Arterial Blood Glucose Ur Specific [place] Coronavirus (PCR) 03/21/21 03/21/21 03/21/21 17:25 22:41 23:52 WBC RBC Hgb Hct MCV MCHC RDW Plt Count Lymph % (Auto) [place] % (Auto) Lymph # (Auto) [place] # (Auto) Seg Neutrophils % Seg Neuts % (Manual) Lymphocytes % (Manual) Monocytes % (Manual) Nucleated RBC % Seg Neutrophils # Seg Neutrophils # Man Lymphocytes # (Manual) Monocytes # (Manual) PT INR APTT D-Dimer Heparin Anti-Xa Level ABG pH POC ABG pCO2 POC ABG pO2 ABG pO2 ABG HCO3 ABG O2 Saturation ABG Base Excess ABG Hemoglobin ABG Oxyhemoglobin ABG Sodium ABG Potassium ABG Glucose Oxyhemoglobin Sodium Potassium Chloride Carbon Dioxide BUN Creatinine Glucose POC Glucose 121 H 139 H 140 H Lactic Acid Calcium Phosphorus Magnesium Ferritin Lactate Dehydrogenase C-Reactive Protein NT-Pro-B Natriuret Pep Total Protein Albumin Triglycerides Arterial Blood Glucose Ur Specific [place] Coronavirus (PCR) 03/22/21 03/22/21 03/22/21 05:58 07:26 07:26 WBC RBC Hgb Hct MCV MCHC 31 L RDW 16.1 H Plt Count Lymph % (Auto) [place] % (Auto) Lymph # (Auto) [place] # (Auto) Seg Neutrophils % Seg Neuts % (Manual) Lymphocytes % (Manual) Monocytes % (Manual) Nucleated RBC % Seg Neutrophils # Seg Neutrophils # Man Lymphocytes # (Manual) Monocytes # (Manual) PT INR APTT D-Dimer Heparin Anti-Xa Level ABG pH POC ABG pCO2 POC ABG pO2 ABG pO2 ABG HCO3 ABG O2 Saturation ABG Base Excess ABG Hemoglobin ABG Oxyhemoglobin ABG Sodium ABG Potassium ABG Glucose Oxyhemoglobin Sodium Potassium Chloride 108.5 H Carbon Dioxide BUN 44 H Creatinine Glucose 120 H POC Glucose 131 H Lactic Acid Calcium Phosphorus 5.80 H Magnesium 2.80 H Ferritin Lactate Dehydrogenase C-Reactive Protein NT-Pro-B Natriuret Pep Total Protein Albumin Triglycerides 305 H Arterial Blood Glucose Ur Specific [place] Coronavirus (PCR) 03/22/21 03/22/21 03/22/21 09:38 11:15 16:01 WBC RBC Hgb Hct MCV MCHC RDW Plt Count Lymph % (Auto) [place] % (Auto) Lymph # (Auto) [place] # (Auto) Seg Neutrophils % Seg Neuts % (Manual) Lymphocytes % (Manual) Monocytes % (Manual) Nucleated RBC % Seg Neutrophils # Seg Neutrophils # Man Lymphocytes # (Manual) Monocytes # (Manual) PT INR APTT D-Dimer Heparin Anti-Xa Level ABG pH POC ABG pCO2 POC ABG pO2 ABG pO2 70.0 L ABG HCO3 30.0 H ABG O2 Saturation 94.6 L ABG Base Excess 3.6 H ABG Hemoglobin 13.5 L ABG Oxyhemoglobin ABG Sodium ABG Potassium ABG Glucose Oxyhemoglobin 92.5 L Sodium Potassium Chloride Carbon Dioxide BUN Creatinine Glucose POC Glucose 186 H 148 H Lactic Acid Calcium Phosphorus Magnesium Ferritin Lactate Dehydrogenase C-Reactive Protein NT-Pro-B Natriuret Pep Total Protein Albumin Triglycerides Arterial Blood Glucose Ur Specific [place] Coronavirus (PCR) 03/22/21 03/22/21 03/23/21 21:13 23:48 07:04 WBC 11.7 H RBC Hgb Hct MCV 95 H MCHC RDW 16.1 H Plt Count Lymph % (Auto) [place] % (Auto) Lymph # (Auto) [place] # (Auto) Seg Neutrophils % Seg Neuts % (Manual) Lymphocytes % (Manual) Monocytes % (Manual) Nucleated RBC % Seg Neutrophils # Seg Neutrophils # Man Lymphocytes # (Manual) Monocytes # (Manual) PT INR APTT D-Dimer Heparin Anti-Xa Level ABG pH POC ABG pCO2 POC ABG pO2 ABG pO2 ABG HCO3 ABG O2 Saturation ABG Base Excess ABG Hemoglobin ABG Oxyhemoglobin ABG Sodium ABG Potassium ABG Glucose Oxyhemoglobin Sodium Potassium Chloride Carbon Dioxide BUN Creatinine Glucose POC Glucose 121 H 114 H Lactic Acid Calcium Phosphorus Magnesium Ferritin Lactate Dehydrogenase C-Reactive Protein NT-Pro-B Natriuret Pep Total Protein Albumin Triglycerides Arterial Blood Glucose Ur Specific [place] Coronavirus (PCR) 03/23/21 03/23/21 03/23/21 07:04 08:35 11:19 WBC RBC Hgb Hct MCV MCHC RDW Plt Count Lymph % (Auto) [place] % (Auto) Lymph # (Auto) [place] # (Auto) Seg Neutrophils % Seg Neuts % (Manual) Lymphocytes % (Manual) Monocytes % (Manual) Nucleated RBC % Seg Neutrophils # Seg Neutrophils # Man Lymphocytes # (Manual) Monocytes # (Manual) PT INR APTT D-Dimer Heparin Anti-Xa Level ABG pH 7.345 L POC ABG pCO2 POC ABG pO2 ABG pO2 167.9 H ABG HCO3 32.2 H ABG O2 Saturation ABG Base Excess 4.8 H ABG Hemoglobin 13.4 L ABG Oxyhemoglobin ABG Sodium ABG Potassium ABG Glucose Oxyhemoglobin Sodium 148 H Potassium Chloride 111.3 H Carbon Dioxide 31 H BUN 31 H Creatinine Glucose 131 H POC Glucose 165 H Lactic Acid Calcium Phosphorus Magnesium 2.50 H Ferritin Lactate Dehydrogenase C-Reactive Protein NT-Pro-B Natriuret Pep Total Protein Albumin Triglycerides Arterial Blood Glucose Ur Specific [place] Coronavirus (PCR) 03/23/21 03/23/21 03/24/21 16:48 20:52 00:07 WBC RBC Hgb Hct MCV MCHC RDW Plt Count Lymph % (Auto) [place] % (Auto) Lymph # (Auto) [place] # (Auto) Seg Neutrophils % Seg Neuts % (Manual) Lymphocytes % (Manual) Monocytes % (Manual) Nucleated RBC % Seg Neutrophils # Seg Neutrophils # Man Lymphocytes # (Manual) Monocytes # (Manual) PT INR APTT D-Dimer Heparin Anti-Xa Level ABG pH POC ABG pCO2 POC ABG pO2 ABG pO2 ABG HCO3 ABG O2 Saturation ABG Base Excess ABG Hemoglobin ABG Oxyhemoglobin ABG Sodium ABG Potassium ABG Glucose Oxyhemoglobin Sodium Potassium Chloride Carbon Dioxide BUN Creatinine Glucose POC Glucose 160 H 127 H 147 H Lactic Acid Calcium Phosphorus Magnesium Ferritin Lactate Dehydrogenase C-Reactive Protein NT-Pro-B Natriuret Pep Total Protein Albumin Triglycerides Arterial Blood Glucose Ur Specific [place] Coronavirus (PCR) 03/24/21 03/24/21 03/24/21 04:34 04:34 05:20 WBC 13.3 H RBC Hgb Hct MCV MCHC 31 L RDW 16.1 H Plt Count Lymph % (Auto) [place] % (Auto) Lymph # (Auto) [place] # (Auto) Seg Neutrophils % Seg Neuts % (Manual) Lymphocytes % (Manual) Monocytes % (Manual) Nucleated RBC % Seg Neutrophils # Seg Neutrophils # Man Lymphocytes # (Manual) Monocytes # (Manual) PT INR APTT D-Dimer Heparin Anti-Xa Level ABG pH POC ABG pCO2 POC ABG pO2 ABG pO2 ABG HCO3 ABG O2 Saturation ABG Base Excess ABG Hemoglobin ABG Oxyhemoglobin ABG Sodium ABG Potassium ABG Glucose Oxyhemoglobin Sodium Potassium 5.2 H Chloride Carbon Dioxide BUN 28 H Creatinine 0.7 L Glucose 152 H POC Glucose 141 H Lactic Acid Calcium Phosphorus Magnesium Ferritin Lactate Dehydrogenase C-Reactive Protein NT-Pro-B Natriuret Pep Total Protein Albumin Triglycerides Arterial Blood Glucose Ur Specific [place] Coronavirus (PCR) 03/24/21 03/24/21 03/24/21 09:40 11:38 16:45 WBC RBC Hgb Hct MCV MCHC RDW Plt Count Lymph % (Auto) [place] % (Auto) Lymph # (Auto) [place] # (Auto) Seg Neutrophils % Seg Neuts % (Manual) Lymphocytes % (Manual) Monocytes % (Manual) Nucleated RBC % Seg Neutrophils # Seg Neutrophils # Man Lymphocytes # (Manual) Monocytes # (Manual) PT INR APTT D-Dimer Heparin Anti-Xa Level ABG pH POC ABG pCO2 POC ABG pO2 ABG pO2 ABG HCO3 ABG O2 Saturation ABG Base Excess ABG Hemoglobin ABG Oxyhemoglobin ABG Sodium ABG Potassium ABG Glucose Oxyhemoglobin Sodium Potassium Chloride Carbon Dioxide BUN Creatinine Glucose POC Glucose 126 H 136 H 118 H Lactic Acid Calcium Phosphorus Magnesium Ferritin Lactate Dehydrogenase C-Reactive Protein NT-Pro-B Natriuret Pep Total Protein Albumin Triglycerides Arterial Blood Glucose Ur Specific [place] Coronavirus (PCR) 03/24/21 03/24/21 03/25/21 21:03 23:49 04:32 WBC RBC Hgb Hct MCV MCHC RDW 16.1 H Plt Count 121 L Lymph % (Auto) [place] % (Auto) Lymph # (Auto) [place] # (Auto) Seg Neutrophils % Seg Neuts % (Manual) Lymphocytes % (Manual) Monocytes % (Manual) Nucleated RBC % Seg Neutrophils # Seg Neutrophils # Man Lymphocytes # (Manual) Monocytes # (Manual) PT INR APTT D-Dimer Heparin Anti-Xa Level ABG pH POC ABG pCO2 POC ABG pO2 ABG pO2 ABG HCO3 ABG O2 Saturation ABG Base Excess ABG Hemoglobin ABG Oxyhemoglobin ABG Sodium ABG Potassium ABG Glucose Oxyhemoglobin Sodium Potassium Chloride Carbon Dioxide BUN Creatinine Glucose POC Glucose 116 H 125 H Lactic Acid Calcium Phosphorus Magnesium Ferritin Lactate Dehydrogenase C-Reactive Protein NT-Pro-B Natriuret Pep Total Protein Albumin Triglycerides Arterial Blood Glucose Ur Specific [place] Coronavirus (PCR) 03/25/21 03/25/21 03/25/21 04:32 05:21 09:29 WBC RBC Hgb Hct MCV MCHC RDW Plt Count Lymph % (Auto) [place] % (Auto) Lymph # (Auto) [place] # (Auto) Seg Neutrophils % Seg Neuts % (Manual) Lymphocytes % (Manual) Monocytes % (Manual) Nucleated RBC % Seg Neutrophils # Seg Neutrophils # Man Lymphocytes # (Manual) Monocytes # (Manual) PT INR APTT D-Dimer Heparin Anti-Xa Level ABG pH POC ABG pCO2 POC ABG pO2 ABG pO2 ABG HCO3 ABG O2 Saturation ABG Base Excess ABG Hemoglobin ABG Oxyhemoglobin ABG Sodium ABG Potassium ABG Glucose Oxyhemoglobin Sodium 135 L D Potassium Chloride Carbon Dioxide BUN 25 H Creatinine 0.7 L Glucose 168 H POC Glucose 149 H 115 H Lactic Acid Calcium Phosphorus Magnesium Ferritin Lactate Dehydrogenase C-Reactive Protein NT-Pro-B Natriuret Pep Total Protein Albumin Triglycerides Arterial Blood Glucose Ur Specific [place] Coronavirus (PCR) 03/25/21 03/25/21 03/25/21 12:26 12:35 23:53 WBC RBC Hgb Hct MCV MCHC RDW Plt Count Lymph % (Auto) [place] % (Auto) Lymph # (Auto) [place] # (Auto) Seg Neutrophils % Seg Neuts % (Manual) Lymphocytes % (Manual) Monocytes % (Manual) Nucleated RBC % Seg Neutrophils # Seg Neutrophils # Man Lymphocytes # (Manual) Monocytes # (Manual) PT INR APTT D-Dimer Heparin Anti-Xa Level ABG pH POC ABG pCO2 POC ABG pO2 ABG pO2 100.5 H ABG HCO3 33.6 H ABG O2 Saturation ABG Base Excess 6.4 H ABG Hemoglobin 12.0 L ABG Oxyhemoglobin ABG Sodium ABG Potassium ABG Glucose Oxyhemoglobin Sodium Potassium Chloride Carbon Dioxide BUN Creatinine Glucose POC Glucose 108 H 137 H Lactic Acid Calcium Phosphorus Magnesium Ferritin Lactate Dehydrogenase C-Reactive Protein NT-Pro-B Natriuret Pep Total Protein Albumin Triglycerides Arterial Blood Glucose Ur Specific [place] Coronavirus (PCR) 03/26/21 03/26/21 03/26/21 05:14 07:09 07:09 WBC RBC Hgb Hct MCV MCHC RDW 16.5 H Plt Count 139 L Lymph % (Auto) [place] % (Auto) Lymph # (Auto) [place] # (Auto) Seg Neutrophils % Seg Neuts % (Manual) Lymphocytes % (Manual) Monocytes % (Manual) Nucleated RBC % Seg Neutrophils # Seg Neutrophils # Man Lymphocytes # (Manual) Monocytes # (Manual) PT INR APTT D-Dimer Heparin Anti-Xa Level ABG pH POC ABG pCO2 POC ABG pO2 ABG pO2 ABG HCO3 ABG O2 Saturation ABG Base Excess ABG Hemoglobin ABG Oxyhemoglobin ABG Sodium ABG Potassium ABG Glucose Oxyhemoglobin Sodium Potassium Chloride Carbon Dioxide BUN 22 H Creatinine 0.7 L Glucose 108 H POC Glucose 116 H Lactic Acid Calcium Phosphorus Magnesium Ferritin Lactate Dehydrogenase C-Reactive Protein NT-Pro-B Natriuret Pep Total Protein Albumin Triglycerides Arterial Blood Glucose Ur Specific [place] Coronavirus (PCR) 03/26/21 03/26/21 03/26/21 09:51 11:15 16:59 WBC RBC Hgb Hct MCV MCHC RDW Plt Count Lymph % (Auto) [place] % (Auto) Lymph # (Auto) [place] # (Auto) Seg Neutrophils % Seg Neuts % (Manual) Lymphocytes % (Manual) Monocytes % (Manual) Nucleated RBC % Seg Neutrophils # Seg Neutrophils # Man Lymphocytes # (Manual) Monocytes # (Manual) PT INR APTT D-Dimer Heparin Anti-Xa Level ABG pH POC ABG pCO2 POC ABG pO2 ABG pO2 ABG HCO3 ABG O2 Saturation ABG Base Excess ABG Hemoglobin ABG Oxyhemoglobin ABG Sodium ABG Potassium ABG Glucose Oxyhemoglobin Sodium Potassium Chloride Carbon Dioxide BUN Creatinine Glucose POC Glucose 107 H 119 H 174 H Lactic Acid Calcium Phosphorus Magnesium Ferritin Lactate Dehydrogenase C-Reactive Protein NT-Pro-B Natriuret Pep Total Protein Albumin Triglycerides Arterial Blood Glucose Ur Specific [place] Coronavirus (PCR) 03/26/21 03/27/21 03/27/21 22:18 07:08 10:28 WBC RBC Hgb Hct MCV 95 H MCHC RDW 16.2 H Plt Count 134 L Lymph % (Auto) [place] % (Auto) Lymph # (Auto) [place] # (Auto) Seg Neutrophils % Seg Neuts % (Manual) Lymphocytes % (Manual) Monocytes % (Manual) Nucleated RBC % Seg Neutrophils # Seg Neutrophils # Man Lymphocytes # (Manual) Monocytes # (Manual) PT INR APTT D-Dimer Heparin Anti-Xa Level ABG pH POC ABG pCO2 POC ABG pO2 ABG pO2 ABG HCO3 ABG O2 Saturation ABG Base Excess ABG Hemoglobin ABG Oxyhemoglobin ABG Sodium ABG Potassium ABG Glucose Oxyhemoglobin Sodium Potassium Chloride Carbon Dioxide BUN Creatinine Glucose POC Glucose 107 H 52 L Lactic Acid Calcium Phosphorus Magnesium Ferritin Lactate Dehydrogenase C-Reactive Protein NT-Pro-B Natriuret Pep Total Protein Albumin Triglycerides Arterial Blood Glucose Ur Specific [place] Coronavirus (PCR) 03/27/21 03/27/21 03/27/21 10:28 11:45 17:39 WBC RBC Hgb Hct MCV MCHC RDW Plt Count Lymph % (Auto) [place] % (Auto) Lymph # (Auto) [place] # (Auto) Seg Neutrophils % Seg Neuts % (Manual) Lymphocytes % (Manual) Monocytes % (Manual) Nucleated RBC % Seg Neutrophils # Seg Neutrophils # Man Lymphocytes # (Manual) Monocytes # (Manual) PT INR APTT D-Dimer Heparin Anti-Xa Level ABG pH POC ABG pCO2 POC ABG pO2 ABG pO2 ABG HCO3 ABG O2 Saturation ABG Base Excess ABG Hemoglobin ABG Oxyhemoglobin ABG Sodium ABG Potassium ABG Glucose Oxyhemoglobin Sodium 136 L Potassium Chloride Carbon Dioxide BUN Creatinine 0.7 L Glucose 150 H POC Glucose 121 H 165 H Lactic Acid Calcium Phosphorus Magnesium Ferritin Lactate Dehydrogenase C-Reactive Protein NT-Pro-B Natriuret Pep Total Protein Albumin Triglycerides Arterial Blood Glucose Ur Specific [place] Coronavirus (PCR) 0203/28/21 03/28/21 07:14 11:42 18:22 WBC RBC Hgb Hct MCV MCHC RDW 16.4 H Plt Count Lymph % (Auto) [place] % (Auto) Lymph # (Auto) [place] # (Auto) Seg Neutrophils % Seg Neuts % (Manual) Lymphocytes % (Manual) Monocytes % (Manual) Nucleated RBC % Seg Neutrophils # Seg Neutrophils # Man Lymphocytes # (Manual) Monocytes # (Manual) PT INR APTT D-Dimer Heparin Anti-Xa Level ABG pH POC ABG pCO2 POC ABG pO2 ABG pO2 ABG HCO3 ABG O2 Saturation ABG Base Excess ABG Hemoglobin ABG Oxyhemoglobin ABG Sodium ABG Potassium ABG Glucose Oxyhemoglobin Sodium Potassium Chloride Carbon Dioxide BUN Creatinine Glucose POC Glucose 145 H 169 H Lactic Acid Calcium Phosphorus Magnesium Ferritin Lactate Dehydrogenase C-Reactive Protein NT-Pro-B Natriuret Pep Total Protein Albumin Triglycerides Arterial Blood Glucose Ur Specific [place] Coronavirus (PCR) 03/28/21 03/29/21 03/29/21 23:39 04:50 04:50 WBC RBC Hgb 11.0 L Hct 34.9 L MCV MCHC RDW 15.9 H Plt Count Lymph % (Auto) [place] % (Auto) Lymph # (Auto) [place] # (Auto) Seg Neutrophils % Seg Neuts % (Manual) Lymphocytes % (Manual) Monocytes % (Manual) Nucleated RBC % Seg Neutrophils # Seg Neutrophils # Man Lymphocytes # (Manual) Monocytes # (Manual) PT INR APTT D-Dimer Heparin Anti-Xa Level ABG pH POC ABG pCO2 POC ABG pO2 ABG pO2 ABG HCO3 ABG O2 Saturation ABG Base Excess ABG Hemoglobin ABG Oxyhemoglobin ABG Sodium ABG Potassium ABG Glucose Oxyhemoglobin Sodium Potassium Chloride Carbon Dioxide 34 H BUN Creatinine 0.6 L Glucose 152 H POC Glucose 139 H Lactic Acid Calcium Phosphorus Magnesium Ferritin Lactate Dehydrogenase C-Reactive Protein NT-Pro-B Natriuret Pep Total Protein Albumin Triglycerides Arterial Blood Glucose Ur Specific [place] Coronavirus (PCR) 03/29/21 03/29/21 03/29/21 05:25 11:34 18:02 WBC RBC Hgb Hct MCV MCHC RDW Plt Count Lymph % (Auto) [place] % (Auto) Lymph # (Auto) [place] # (Auto) Seg Neutrophils % Seg Neuts % (Manual) Lymphocytes % (Manual) Monocytes % (Manual) Nucleated RBC % Seg Neutrophils # Seg Neutrophils # Man Lymphocytes # (Manual) Monocytes # (Manual) PT INR APTT D-Dimer Heparin Anti-Xa Level ABG pH POC ABG pCO2 POC ABG pO2 ABG pO2 ABG HCO3 ABG O2 Saturation ABG Base Excess ABG Hemoglobin ABG Oxyhemoglobin ABG Sodium ABG Potassium ABG Glucose Oxyhemoglobin Sodium Potassium Chloride Carbon Dioxide BUN Creatinine Glucose POC Glucose 127 H 169 H 173 H Lactic Acid Calcium Phosphorus Magnesium Ferritin Lactate Dehydrogenase C-Reactive Protein NT-Pro-B Natriuret Pep Total Protein Albumin Triglycerides Arterial Blood Glucose Ur Specific [place] Coronavirus (PCR) 03/29/21 03/30/21 03/30/21 21:42 00:01 05:36 WBC RBC Hgb Hct MCV MCHC RDW 16.7 H Plt Count Lymph % (Auto) [place] % (Auto) Lymph # (Auto) [place] # (Auto) Seg Neutrophils % Seg Neuts % (Manual) Lymphocytes % (Manual) Monocytes % (Manual) Nucleated RBC % Seg Neutrophils # Seg Neutrophils # Man Lymphocytes # (Manual) Monocytes # (Manual) PT INR APTT D-Dimer Heparin Anti-Xa Level ABG pH POC ABG pCO2 POC ABG pO2 ABG pO2 ABG HCO3 ABG O2 Saturation ABG Base Excess ABG Hemoglobin ABG Oxyhemoglobin ABG Sodium ABG Potassium ABG Glucose Oxyhemoglobin Sodium Potassium Chloride Carbon Dioxide BUN Creatinine Glucose POC Glucose 184 H 161 H Lactic Acid Calcium Phosphorus Magnesium Ferritin Lactate Dehydrogenase C-Reactive Protein NT-Pro-B Natriuret Pep Total Protein Albumin Triglycerides Arterial Blood Glucose Ur Specific [place] Coronavirus (PCR) 03/30/21 03/30/21 03/30/21 05:36 06:03 11:32 WBC RBC Hgb Hct MCV MCHC RDW Plt Count Lymph % (Auto) [place] % (Auto) Lymph # (Auto) [place] # (Auto) Seg Neutrophils % Seg Neuts % (Manual) Lymphocytes % (Manual) Monocytes % (Manual) Nucleated RBC % Seg Neutrophils # Seg Neutrophils # Man Lymphocytes # (Manual) Monocytes # (Manual) PT INR APTT D-Dimer Heparin Anti-Xa Level ABG pH POC ABG pCO2 POC ABG pO2 ABG pO2 ABG HCO3 ABG O2 Saturation ABG Base Excess ABG Hemoglobin ABG Oxyhemoglobin ABG Sodium ABG Potassium ABG Glucose Oxyhemoglobin Sodium Potassium Chloride Carbon Dioxide BUN Creatinine 0.5 L Glucose 127 H POC Glucose 130 H 183 H Lactic Acid Calcium Phosphorus Magnesium Ferritin Lactate Dehydrogenase C-Reactive Protein NT-Pro-B Natriuret Pep Total Protein Albumin Triglycerides Arterial Blood Glucose Ur Specific [place] Coronavirus (PCR) 03/30/21 03/30/21 03/30/21 15:00 16:23 21:07 WBC RBC Hgb Hct MCV MCHC RDW Plt Count Lymph % (Auto) [place] % (Auto) Lymph # (Auto) [place] # (Auto) Seg Neutrophils % Seg Neuts % (Manual) Lymphocytes % (Manual) Monocytes % (Manual) Nucleated RBC % Seg Neutrophils # Seg Neutrophils # Man Lymphocytes # (Manual) Monocytes # (Manual) PT INR APTT D-Dimer Heparin Anti-Xa Level ABG pH POC ABG pCO2 POC ABG pO2 ABG pO2 67.2 L ABG HCO3 34.9 H ABG O2 Saturation ABG Base Excess 9.1 H ABG Hemoglobin 11.6 L ABG Oxyhemoglobin ABG Sodium ABG Potassium ABG Glucose Oxyhemoglobin 93.0 L Sodium Potassium Chloride Carbon Dioxide BUN Creatinine Glucose POC Glucose 162 H 146 H Lactic Acid Calcium Phosphorus Magnesium Ferritin Lactate Dehydrogenase C-Reactive Protein NT-Pro-B Natriuret Pep Total Protein Albumin Triglycerides Arterial Blood Glucose Ur Specific [place] Coronavirus (PCR) 03/30/21 03/31/21 03/31/21 23:23 05:44 11:19 WBC RBC Hgb Hct MCV MCHC RDW Plt Count Lymph % (Auto) [place] % (Auto) Lymph # (Auto) [place] # (Auto) Seg Neutrophils % Seg Neuts % (Manual) Lymphocytes % (Manual) Monocytes % (Manual) Nucleated RBC % Seg Neutrophils # Seg Neutrophils # Man Lymphocytes # (Manual) Monocytes # (Manual) PT INR APTT D-Dimer Heparin Anti-Xa Level ABG pH POC ABG pCO2 POC ABG pO2 ABG pO2 ABG HCO3 ABG O2 Saturation ABG Base Excess ABG Hemoglobin ABG Oxyhemoglobin ABG Sodium ABG Potassium ABG Glucose Oxyhemoglobin Sodium Potassium Chloride Carbon Dioxide BUN Creatinine Glucose POC Glucose 138 H 180 H 178 H Lactic Acid Calcium Phosphorus Magnesium Ferritin Lactate Dehydrogenase C-Reactive Protein NT-Pro-B Natriuret Pep Total Protein Albumin Triglycerides Arterial Blood Glucose Ur Specific [place] Coronavirus (PCR) 03/31/21 03/31/21 03/31/21 12:50 13:30 16:06 WBC RBC Hgb 11.3 L Hct 35.1 L MCV MCHC RDW 16.5 H Plt Count Lymph % (Auto) 7.6 L [place] % (Auto) 9.5 H Lymph # (Auto) 0.6 L [place] # (Auto) Seg Neutrophils % 78.3 H Seg Neuts % (Manual) Lymphocytes % (Manual) Monocytes % (Manual) Nucleated RBC % Seg Neutrophils # Seg Neutrophils # Man Lymphocytes # (Manual) Monocytes # (Manual) PT INR APTT D-Dimer Heparin Anti-Xa Level ABG pH POC ABG pCO2 POC ABG pO2 ABG pO2 99.4 H ABG HCO3 34.9 H ABG O2 Saturation ABG Base Excess 8.4 H ABG Hemoglobin 11.8 L ABG Oxyhemoglobin ABG Sodium ABG Potassium ABG Glucose Oxyhemoglobin Sodium Potassium Chloride Carbon Dioxide BUN Creatinine Glucose POC Glucose 197 H Lactic Acid Calcium Phosphorus Magnesium Ferritin Lactate Dehydrogenase C-Reactive Protein NT-Pro-B Natriuret Pep Total Protein Albumin Triglycerides Arterial Blood Glucose Ur Specific [place] Coronavirus (PCR) 03/31/21 04/01/21 04/01/21 20:51 05:37 07:16 WBC RBC 3.39 L Hgb 10.5 L Hct 31.6 L MCV MCHC RDW 16.1 H Plt Count Lymph % (Auto) [place] % (Auto) Lymph # (Auto) [place] # (Auto) Seg Neutrophils % Seg Neuts % (Manual) Lymphocytes % (Manual) Monocytes % (Manual) Nucleated RBC % Seg Neutrophils # Seg Neutrophils # Man Lymphocytes # (Manual) Monocytes # (Manual) PT INR APTT D-Dimer Heparin Anti-Xa Level ABG pH POC ABG pCO2 POC ABG pO2 ABG pO2 ABG HCO3 ABG O2 Saturation ABG Base Excess ABG Hemoglobin ABG Oxyhemoglobin ABG Sodium ABG Potassium ABG Glucose Oxyhemoglobin Sodium Potassium Chloride Carbon Dioxide BUN Creatinine Glucose POC Glucose 140 H 128 H Lactic Acid Calcium Phosphorus Magnesium Ferritin Lactate Dehydrogenase C-Reactive Protein NT-Pro-B Natriuret Pep Total Protein Albumin Triglycerides Arterial Blood Glucose Ur Specific [place] Coronavirus (PCR) 04/01/21 04/01/21 04/01/21 07:16 11:52 16:56 WBC RBC Hgb Hct MCV MCHC RDW Plt Count Lymph % (Auto) [place] % (Auto) Lymph # (Auto) [place] # (Auto) Seg Neutrophils % Seg Neuts % (Manual) Lymphocytes % (Manual) Monocytes % (Manual) Nucleated RBC % Seg Neutrophils # Seg Neutrophils # Man Lymphocytes # (Manual) Monocytes # (Manual) PT INR APTT D-Dimer Heparin Anti-Xa Level ABG pH POC ABG pCO2 POC ABG pO2 ABG pO2 ABG HCO3 ABG O2 Saturation ABG Base Excess ABG Hemoglobin ABG Oxyhemoglobin ABG Sodium ABG Potassium ABG Glucose Oxyhemoglobin Sodium Potassium Chloride Carbon Dioxide BUN Creatinine 0.6 L Glucose 131 H POC Glucose 182 H 179 H Lactic Acid Calcium 8.3 L Phosphorus Magnesium Ferritin Lactate Dehydrogenase C-Reactive Protein NT-Pro-B Natriuret Pep Total Protein Albumin Triglycerides Arterial Blood Glucose Ur Specific [place] Coronavirus (PCR) 04/01/21 04/01/21 04/02/21 21:30 23:40 04:26 WBC RBC 3.62 L Hgb 10.8 L Hct 33.9 L MCV MCHC RDW 16.0 H Plt Count Lymph % (Auto) [place] % (Auto) Lymph # (Auto) [place] # (Auto) Seg Neutrophils % Seg Neuts % (Manual) Lymphocytes % (Manual) Monocytes % (Manual) Nucleated RBC % Seg Neutrophils # Seg Neutrophils # Man Lymphocytes # (Manual) Monocytes # (Manual) PT INR APTT D-Dimer Heparin Anti-Xa Level ABG pH POC ABG pCO2 POC ABG pO2 ABG pO2 ABG HCO3 ABG O2 Saturation ABG Base Excess ABG Hemoglobin ABG Oxyhemoglobin ABG Sodium ABG Potassium ABG Glucose Oxyhemoglobin Sodium Potassium Chloride Carbon Dioxide BUN Creatinine Glucose POC Glucose 131 H 129 H Lactic Acid Calcium Phosphorus Magnesium Ferritin Lactate Dehydrogenase C-Reactive Protein NT-Pro-B Natriuret Pep Total Protein Albumin Triglycerides Arterial Blood Glucose Ur Specific [place] Coronavirus (PCR) 04/02/21 04/02/21 04/02/21 04:26 05:54 11:35 WBC RBC Hgb Hct MCV MCHC RDW Plt Count Lymph % (Auto) [place] % (Auto) Lymph # (Auto) [place] # (Auto) Seg Neutrophils % Seg Neuts % (Manual) Lymphocytes % (Manual) Monocytes % (Manual) Nucleated RBC % Seg Neutrophils # Seg Neutrophils # Man Lymphocytes # (Manual) Monocytes # (Manual) PT INR APTT D-Dimer Heparin Anti-Xa Level ABG pH POC ABG pCO2 POC ABG pO2 ABG pO2 ABG HCO3 ABG O2 Saturation ABG Base Excess ABG Hemoglobin ABG Oxyhemoglobin ABG Sodium ABG Potassium ABG Glucose Oxyhemoglobin Sodium 136 L Potassium Chloride Carbon Dioxide BUN Creatinine 0.6 L Glucose 152 H POC Glucose 151 H 178 H Lactic Acid Calcium Phosphorus Magnesium Ferritin Lactate Dehydrogenase C-Reactive Protein NT-Pro-B Natriuret Pep Total Protein Albumin Triglycerides Arterial Blood Glucose Ur Specific [place] Coronavirus (PCR) 04/02/21 04/02/21 04/02/21 16:11 21:09 23:38 WBC RBC Hgb Hct MCV MCHC RDW Plt Count Lymph % (Auto) [place] % (Auto) Lymph # (Auto) [place] # (Auto) Seg Neutrophils % Seg Neuts % (Manual) Lymphocytes % (Manual) Monocytes % (Manual) Nucleated RBC % Seg Neutrophils # Seg Neutrophils # Man Lymphocytes # (Manual) Monocytes # (Manual) PT INR APTT D-Dimer Heparin Anti-Xa Level ABG pH POC ABG pCO2 POC ABG pO2 ABG pO2 ABG HCO3 ABG O2 Saturation ABG Base Excess ABG Hemoglobin ABG Oxyhemoglobin ABG Sodium ABG Potassium ABG Glucose Oxyhemoglobin Sodium Potassium Chloride Carbon Dioxide BUN Creatinine Glucose POC Glucose 186 H 145 H 152 H Lactic Acid Calcium Phosphorus Magnesium Ferritin Lactate Dehydrogenase C-Reactive Protein NT-Pro-B Natriuret Pep Total Protein Albumin Triglycerides Arterial Blood Glucose Ur Specific [place] Coronavirus (PCR) 04/03/21 04/03/21 04/03/21 04:14 04:14 05:27 WBC RBC 3.62 L Hgb 11.0 L Hct 34.0 L MCV MCHC RDW 16.3 H Plt Count Lymph % (Auto) [place] % (Auto) Lymph # (Auto) [place] # (Auto) Seg Neutrophils % Seg Neuts % (Manual) Lymphocytes % (Manual) Monocytes % (Manual) Nucleated RBC % Seg Neutrophils # Seg Neutrophils # Man Lymphocytes # (Manual) Monocytes # (Manual) PT INR APTT D-Dimer Heparin Anti-Xa Level ABG pH POC ABG pCO2 POC ABG pO2 ABG pO2 ABG HCO3 ABG O2 Saturation ABG Base Excess ABG Hemoglobin ABG Oxyhemoglobin ABG Sodium ABG Potassium ABG Glucose Oxyhemoglobin Sodium Potassium Chloride Carbon Dioxide 31 H BUN Creatinine 0.6 L Glucose 155 H POC Glucose 165 H Lactic Acid Calcium Phosphorus Magnesium Ferritin Lactate Dehydrogenase C-Reactive Protein NT-Pro-B Natriuret Pep Total Protein Albumin Triglycerides Arterial Blood Glucose Ur Specific [place] Coronavirus (PCR) 04/03/21 04/03/21 04/03/21 11:02 16:19 19:45 WBC RBC Hgb Hct MCV MCHC RDW Plt Count Lymph % (Auto) [place] % (Auto) Lymph # (Auto) [place] # (Auto) Seg Neutrophils % Seg Neuts % (Manual) Lymphocytes % (Manual) Monocytes % (Manual) Nucleated RBC % Seg Neutrophils # Seg Neutrophils # Man Lymphocytes # (Manual) Monocytes # (Manual) PT INR APTT D-Dimer Heparin Anti-Xa Level ABG pH POC ABG pCO2 POC ABG pO2 ABG pO2 ABG HCO3 ABG O2 Saturation ABG Base Excess ABG Hemoglobin ABG Oxyhemoglobin ABG Sodium ABG Potassium ABG Glucose Oxyhemoglobin Sodium Potassium Chloride Carbon Dioxide BUN Creatinine Glucose POC Glucose 161 H 180 H 136 H Lactic Acid Calcium Phosphorus Magnesium Ferritin Lactate Dehydrogenase C-Reactive Protein NT-Pro-B Natriuret Pep Total Protein Albumin Triglycerides Arterial Blood Glucose Ur Specific [place] Coronavirus (PCR) 04/04/21 04/04/21 04/04/21 00:21 04:33 04:33 WBC 13.1 H RBC 3.49 L Hgb 10.3 L Hct 32.7 L MCV MCHC RDW 16.1 H Plt Count Lymph % (Auto) [place] % (Auto) Lymph # (Auto) [place] # (Auto) Seg Neutrophils % Seg Neuts % (Manual) Lymphocytes % (Manual) Monocytes % (Manual) Nucleated RBC % Seg Neutrophils # Seg Neutrophils # Man Lymphocytes # (Manual) Monocytes # (Manual) PT INR APTT D-Dimer Heparin Anti-Xa Level ABG pH POC ABG pCO2 POC ABG pO2 ABG pO2 ABG HCO3 ABG O2 Saturation ABG Base Excess ABG Hemoglobin ABG Oxyhemoglobin ABG Sodium ABG Potassium ABG Glucose Oxyhemoglobin Sodium Potassium Chloride Carbon Dioxide 31 H BUN Creatinine 0.4 L Glucose 153 H POC Glucose 140 H Lactic Acid Calcium Phosphorus Magnesium Ferritin Lactate Dehydrogenase C-Reactive Protein NT-Pro-B Natriuret Pep Total Protein Albumin Triglycerides Arterial Blood Glucose Ur Specific [place] Coronavirus (PCR) 04/04/21 04/04/21 04/04/21 05:16 11:39 17:22 WBC RBC Hgb Hct MCV MCHC RDW Plt Count Lymph % (Auto) [place] % (Auto) Lymph # (Auto) [place] # (Auto) Seg Neutrophils % Seg Neuts % (Manual) Lymphocytes % (Manual) Monocytes % (Manual) Nucleated RBC % Seg Neutrophils # Seg Neutrophils # Man Lymphocytes # (Manual) Monocytes # (Manual) PT INR APTT D-Dimer Heparin Anti-Xa Level ABG pH POC ABG pCO2 POC ABG pO2 ABG pO2 ABG HCO3 ABG O2 Saturation ABG Base Excess ABG Hemoglobin ABG Oxyhemoglobin ABG Sodium ABG Potassium ABG Glucose Oxyhemoglobin Sodium Potassium Chloride Carbon Dioxide BUN Creatinine Glucose POC Glucose 152 H 154 H 198 H Lactic Acid Calcium Phosphorus Magnesium Ferritin Lactate Dehydrogenase C-Reactive Protein NT-Pro-B Natriuret Pep Total Protein Albumin Triglycerides Arterial Blood Glucose Ur Specific [place] Coronavirus (PCR) 04/04/21 04/04/21 04/05/21 20:14 23:16 04:15 WBC RBC 3.21 L Hgb 10.0 L Hct 30.3 L MCV MCHC RDW 16.4 H Plt Count Lymph % (Auto) [place] % (Auto) Lymph # (Auto) [place] # (Auto) Seg Neutrophils % Seg Neuts % (Manual) Lymphocytes % (Manual) Monocytes % (Manual) Nucleated RBC % Seg Neutrophils # Seg Neutrophils # Man Lymphocytes # (Manual) Monocytes # (Manual) PT INR APTT D-Dimer Heparin Anti-Xa Level ABG pH POC ABG pCO2 POC ABG pO2 ABG pO2 ABG HCO3 ABG O2 Saturation ABG Base Excess ABG Hemoglobin ABG Oxyhemoglobin ABG Sodium ABG Potassium ABG Glucose Oxyhemoglobin Sodium Potassium Chloride Carbon Dioxide BUN Creatinine Glucose POC Glucose 161 H 139 H Lactic Acid Calcium Phosphorus Magnesium Ferritin Lactate Dehydrogenase C-Reactive Protein NT-Pro-B Natriuret Pep Total Protein Albumin Triglycerides Arterial Blood Glucose Ur Specific [place] Coronavirus (PCR) 04/05/21 04/05/21 04/05/21 04:15 05:34 12:09 WBC RBC Hgb Hct MCV MCHC RDW Plt Count Lymph % (Auto) [place] % (Auto) Lymph # (Auto) [place] # (Auto) Seg Neutrophils % Seg Neuts % (Manual) Lymphocytes % (Manual) Monocytes % (Manual) Nucleated RBC % Seg Neutrophils # Seg Neutrophils # Man Lymphocytes # (Manual) Monocytes # (Manual) PT INR APTT D-Dimer Heparin Anti-Xa Level ABG pH POC ABG pCO2 POC ABG pO2 ABG pO2 ABG HCO3 ABG O2 Saturation ABG Base Excess ABG Hemoglobin ABG Oxyhemoglobin ABG Sodium ABG Potassium ABG Glucose Oxyhemoglobin Sodium Potassium Chloride 97.6 L Carbon Dioxide 32 H BUN Creatinine 0.5 L Glucose 147 H POC Glucose 145 H 173 H Lactic Acid Calcium Phosphorus Magnesium Ferritin Lactate Dehydrogenase C-Reactive Protein NT-Pro-B Natriuret Pep Total Protein Albumin Triglycerides Arterial Blood Glucose Ur Specific [place] Coronavirus (PCR) 04/05/21 04/05/21 04/05/21 17:35 21:07 23:15 WBC RBC Hgb Hct MCV MCHC RDW Plt Count Lymph % (Auto) [place] % (Auto) Lymph # (Auto) [place] # (Auto) Seg Neutrophils % Seg Neuts % (Manual) Lymphocytes % (Manual) Monocytes % (Manual) Nucleated RBC % Seg Neutrophils # Seg Neutrophils # Man Lymphocytes # (Manual) Monocytes # (Manual) PT INR APTT D-Dimer Heparin Anti-Xa Level ABG pH POC ABG pCO2 POC ABG pO2 ABG pO2 ABG HCO3 ABG O2 Saturation ABG Base Excess ABG Hemoglobin ABG Oxyhemoglobin ABG Sodium ABG Potassium ABG Glucose Oxyhemoglobin Sodium Potassium Chloride Carbon Dioxide BUN Creatinine Glucose POC Glucose 143 H 157 H 171 H Lactic Acid Calcium Phosphorus Magnesium Ferritin Lactate Dehydrogenase C-Reactive Protein NT-Pro-B Natriuret Pep Total Protein Albumin Triglycerides Arterial Blood Glucose Ur Specific [place] Coronavirus (PCR) 04/06/21 04/06/21 04/06/21 04:49 05:14 11:42 WBC RBC Hgb Hct MCV MCHC RDW Plt Count Lymph % (Auto) [place] % (Auto) Lymph # (Auto) [place] # (Auto) Seg Neutrophils % Seg Neuts % (Manual) Lymphocytes % (Manual) Monocytes % (Manual) Nucleated RBC % Seg Neutrophils # Seg Neutrophils # Man Lymphocytes # (Manual) Monocytes # (Manual) PT INR APTT D-Dimer Heparin Anti-Xa Level ABG pH POC ABG pCO2 57.4 H POC ABG pO2 55.1 L ABG pO2 ABG HCO3 ABG O2 Saturation ABG Base Excess ABG Hemoglobin 11.5 L ABG Oxyhemoglobin 87.5 L ABG Sodium ABG Potassium ABG Glucose Oxyhemoglobin Sodium Potassium Chloride Carbon Dioxide BUN Creatinine Glucose POC Glucose 145 H 171 H Lactic Acid Calcium Phosphorus Magnesium Ferritin Lactate Dehydrogenase C-Reactive Protein NT-Pro-B Natriuret Pep Total Protein Albumin Triglycerides Arterial Blood Glucose Ur Specific [place] Coronavirus (PCR) 04/06/21 04/06/21 04/06/21 11:50 15:36 15:36 WBC RBC Hgb 10.4 L Hct 32.5 L MCV MCHC RDW Plt Count 444 H Lymph % (Auto) [place] % (Auto) Lymph # (Auto) [place] # (Auto) Seg Neutrophils % Seg Neuts % (Manual) Lymphocytes % (Manual) Monocytes % (Manual) Nucleated RBC % Seg Neutrophils # Seg Neutrophils # Man Lymphocytes # (Manual) Monocytes # (Manual) PT INR APTT 37.1 H D-Dimer Heparin Anti-Xa Level ABG pH 7.341 L POC ABG pCO2 POC ABG pO2 ABG pO2 108.9 H ABG HCO3 38.9 H ABG O2 Saturation ABG Base Excess 10.6 H ABG Hemoglobin 11.5 L ABG Oxyhemoglobin ABG Sodium ABG Potassium ABG Glucose Oxyhemoglobin Sodium Potassium Chloride Carbon Dioxide BUN Creatinine Glucose POC Glucose Lactic Acid Calcium Phosphorus Magnesium Ferritin Lactate Dehydrogenase C-Reactive Protein NT-Pro-B Natriuret Pep Total Protein Albumin Triglycerides Arterial Blood Glucose Ur Specific [place] Coronavirus (PCR) 04/06/21 04/07/21 04/07/21 17:57 00:30 00:32 WBC RBC Hgb Hct MCV MCHC RDW Plt Count Lymph % (Auto) [place] % (Auto) Lymph # (Auto) [place] # (Auto) Seg Neutrophils % Seg Neuts % (Manual) Lymphocytes % (Manual) Monocytes % (Manual) Nucleated RBC % Seg Neutrophils # Seg Neutrophils # Man Lymphocytes # (Manual) Monocytes # (Manual) PT INR APTT D-Dimer Heparin Anti-Xa Level < 0.10 L ABG pH POC ABG pCO2 POC ABG pO2 ABG pO2 ABG HCO3 ABG O2 Saturation ABG Base Excess ABG Hemoglobin ABG Oxyhemoglobin ABG Sodium ABG Potassium ABG Glucose Oxyhemoglobin Sodium Potassium Chloride Carbon Dioxide BUN Creatinine Glucose POC Glucose 151 H 149 H Lactic Acid Calcium Phosphorus Magnesium Ferritin Lactate Dehydrogenase C-Reactive Protein NT-Pro-B Natriuret Pep Total Protein Albumin Triglycerides Arterial Blood Glucose Ur Specific [place] Coronavirus (PCR) 04/07/21 04/07/21 04/07/21 05:34 06:08 06:08 WBC RBC 3.20 L Hgb 9.6 L Hct 29.8 L MCV MCHC RDW 16.0 H Plt Count 455 H Lymph % (Auto) [place] % (Auto) Lymph # (Auto) [place] # (Auto) Seg Neutrophils % Seg Neuts % (Manual) Lymphocytes % (Manual) Monocytes % (Manual) Nucleated RBC % Seg Neutrophils # Seg Neutrophils # Man Lymphocytes # (Manual) Monocytes # (Manual) PT INR APTT D-Dimer Heparin Anti-Xa Level ABG pH POC ABG pCO2 POC ABG pO2 ABG pO2 ABG HCO3 ABG O2 Saturation ABG Base Excess ABG Hemoglobin ABG Oxyhemoglobin ABG Sodium ABG Potassium ABG Glucose Oxyhemoglobin Sodium Potassium Chloride Carbon Dioxide 35 H BUN Creatinine 0.5 L Glucose 216 H POC Glucose 182 H Lactic Acid Calcium Phosphorus Magnesium Ferritin Lactate Dehydrogenase C-Reactive Protein NT-Pro-B Natriuret Pep Total Protein Albumin Triglycerides Arterial Blood Glucose Ur Specific [place] Coronavirus (PCR) 04/07/21 04/07/21 04/07/21 07:55 11:57 17:12 WBC RBC Hgb Hct MCV MCHC RDW Plt Count Lymph % (Auto) [place] % (Auto) Lymph # (Auto) [place] # (Auto) Seg Neutrophils % Seg Neuts % (Manual) Lymphocytes % (Manual) Monocytes % (Manual) Nucleated RBC % Seg Neutrophils # Seg Neutrophils # Man Lymphocytes # (Manual) Monocytes # (Manual) PT INR APTT D-Dimer Heparin Anti-Xa Level < 0.10 L ABG pH POC ABG pCO2 POC ABG pO2 ABG pO2 ABG HCO3 ABG O2 Saturation ABG Base Excess ABG Hemoglobin ABG Oxyhemoglobin ABG Sodium ABG Potassium ABG Glucose Oxyhemoglobin Sodium Potassium Chloride Carbon Dioxide BUN Creatinine Glucose POC Glucose 182 H 165 H Lactic Acid Calcium Phosphorus Magnesium Ferritin Lactate Dehydrogenase C-Reactive Protein NT-Pro-B Natriuret Pep Total Protein Albumin Triglycerides Arterial Blood Glucose Ur Specific [place] Coronavirus (PCR) 04/07/21 04/08/21 04/08/21 19:55 00:16 03:57 WBC RBC Hgb Hct MCV MCHC RDW Plt Count Lymph % (Auto) [place] % (Auto) Lymph # (Auto) [place] # (Auto) Seg Neutrophils % Seg Neuts % (Manual) Lymphocytes % (Manual) Monocytes % (Manual) Nucleated RBC % Seg Neutrophils # Seg Neutrophils # Man Lymphocytes # (Manual) Monocytes # (Manual) PT INR APTT D-Dimer Heparin Anti-Xa Level < 0.10 L ABG pH POC ABG pCO2 POC ABG pO2 ABG pO2 ABG HCO3 ABG O2 Saturation ABG Base Excess ABG Hemoglobin ABG Oxyhemoglobin ABG Sodium ABG Potassium ABG Glucose Oxyhemoglobin Sodium Potassium 5.8 H Chloride 95.5 L Carbon Dioxide 37 H BUN Creatinine 0.5 L Glucose 161 H POC Glucose 175 H Lactic Acid Calcium Phosphorus Magnesium Ferritin Lactate Dehydrogenase C-Reactive Protein NT-Pro-B Natriuret Pep Total Protein Albumin Triglycerides Arterial Blood Glucose Ur Specific [place] Coronavirus (PCR) 04/08/21 04/08/21 04/08/21 04:00 05:43 09:26 WBC RBC 3.25 L Hgb 9.9 L Hct 30.8 L MCV 95 H MCHC RDW 16.0 H Plt Count 487 H Lymph % (Auto) [place] % (Auto) Lymph # (Auto) [place] # (Auto) Seg Neutrophils % Seg Neuts % (Manual) Lymphocytes % (Manual) Monocytes % (Manual) Nucleated RBC % Seg Neutrophils # Seg Neutrophils # Man Lymphocytes # (Manual) Monocytes # (Manual) PT INR APTT D-Dimer Heparin Anti-Xa Level ABG pH POC ABG pCO2 POC ABG pO2 ABG pO2 ABG HCO3 ABG O2 Saturation ABG Base Excess ABG Hemoglobin ABG Oxyhemoglobin ABG Sodium ABG Potassium ABG Glucose Oxyhemoglobin Sodium Potassium Chloride Carbon Dioxide BUN Creatinine Glucose POC Glucose 162 H 164 H Lactic Acid Calcium Phosphorus Magnesium Ferritin Lactate Dehydrogenase C-Reactive Protein NT-Pro-B Natriuret Pep Total Protein Albumin Triglycerides Arterial Blood Glucose Ur Specific [place] Coronavirus (PCR) 04/08/21 04/08/21 04/08/21 11:53 17:19 20:35 WBC RBC Hgb Hct MCV MCHC RDW Plt Count Lymph % (Auto) [place] % (Auto) Lymph # (Auto) [place] # (Auto) Seg Neutrophils % Seg Neuts % (Manual) Lymphocytes % (Manual) Monocytes % (Manual) Nucleated RBC % Seg Neutrophils # Seg Neutrophils # Man Lymphocytes # (Manual) Monocytes # (Manual) PT INR APTT D-Dimer Heparin Anti-Xa Level ABG pH POC ABG pCO2 POC ABG pO2 ABG pO2 ABG HCO3 ABG O2 Saturation ABG Base Excess ABG Hemoglobin ABG Oxyhemoglobin ABG Sodium ABG Potassium ABG Glucose Oxyhemoglobin Sodium Potassium Chloride Carbon Dioxide BUN Creatinine Glucose POC Glucose 170 H 157 H 190 H Lactic Acid Calcium Phosphorus Magnesium Ferritin Lactate Dehydrogenase C-Reactive Protein NT-Pro-B Natriuret Pep Total Protein Albumin Triglycerides Arterial Blood Glucose Ur Specific [place] Coronavirus (PCR) 04/08/21 04/09/21 04/09/21 23:52 04:21 04:21 WBC 11.4 H RBC 2.97 L Hgb 8.9 L Hct 27.8 L MCV MCHC RDW 15.8 H Plt Count 485 H Lymph % (Auto) [place] % (Auto) Lymph # (Auto) [place] # (Auto) Seg Neutrophils % Seg Neuts % (Manual) Lymphocytes % (Manual) Monocytes % (Manual) Nucleated RBC % Seg Neutrophils # Seg Neutrophils # Man Lymphocytes # (Manual) Monocytes # (Manual) PT INR APTT D-Dimer Heparin Anti-Xa Level ABG pH POC ABG pCO2 POC ABG pO2 ABG pO2 ABG HCO3 ABG O2 Saturation ABG Base Excess ABG Hemoglobin ABG Oxyhemoglobin ABG Sodium ABG Potassium ABG Glucose Oxyhemoglobin Sodium Potassium Chloride 97.1 L Carbon Dioxide 40 H BUN 21 H Creatinine 0.5 L Glucose 149 H POC Glucose 170 H Lactic Acid Calcium Phosphorus 1.90 L D Magnesium Ferritin Lactate Dehydrogenase C-Reactive Protein NT-Pro-B Natriuret Pep Total Protein Albumin Triglycerides Arterial Blood Glucose Ur Specific [place] Coronavirus (PCR) 04/09/21 04/09/21 04/09/21 05:27 11:55 17:11 WBC RBC Hgb Hct MCV MCHC RDW Plt Count Lymph % (Auto) [place] % (Auto) Lymph # (Auto) [place] # (Auto) Seg Neutrophils % Seg Neuts % (Manual) Lymphocytes % (Manual) Monocytes % (Manual) Nucleated RBC % Seg Neutrophils # Seg Neutrophils # Man Lymphocytes # (Manual) Monocytes # (Manual) PT INR APTT D-Dimer Heparin Anti-Xa Level ABG pH POC ABG pCO2 POC ABG pO2 ABG pO2 ABG HCO3 ABG O2 Saturation ABG Base Excess ABG Hemoglobin ABG Oxyhemoglobin ABG Sodium ABG Potassium ABG Glucose Oxyhemoglobin Sodium Potassium Chloride Carbon Dioxide BUN Creatinine Glucose POC Glucose 144 H 190 H 163 H Lactic Acid Calcium Phosphorus Magnesium Ferritin Lactate Dehydrogenase C-Reactive Protein NT-Pro-B Natriuret Pep Total Protein Albumin Triglycerides Arterial Blood Glucose Ur Specific [place] Coronavirus (PCR) 04/09/21 04/09/21 04/09/21 20:10 21:12 23:33 WBC RBC Hgb Hct MCV MCHC RDW Plt Count Lymph % (Auto) [place] % (Auto) Lymph # (Auto) [place] # (Auto) Seg Neutrophils % Seg Neuts % (Manual) Lymphocytes % (Manual) Monocytes % (Manual) Nucleated RBC % Seg Neutrophils # Seg Neutrophils # Man Lymphocytes # (Manual) Monocytes # (Manual) PT INR APTT D-Dimer Heparin Anti-Xa Level ABG pH POC ABG pCO2 POC ABG pO2 ABG pO2 68.1 L ABG HCO3 41.3 H ABG O2 Saturation ABG Base Excess 14.6 H ABG Hemoglobin 10.2 L ABG Oxyhemoglobin ABG Sodium ABG Potassium ABG Glucose Oxyhemoglobin 94.7 L Sodium Potassium Chloride Carbon Dioxide BUN Creatinine Glucose POC Glucose 163 H 164 H Lactic Acid Calcium Phosphorus Magnesium Ferritin Lactate Dehydrogenase C-Reactive Protein NT-Pro-B Natriuret Pep Total Protein Albumin Triglycerides Arterial Blood Glucose Ur Specific [place] Coronavirus (PCR) 04/10/21 04/10/21 04/10/21 05:26 11:41 13:00 WBC RBC 3.09 L Hgb 9.3 L Hct 28.3 L MCV MCHC RDW 15.8 H Plt Count 480 H Lymph % (Auto) [place] % (Auto) Lymph # (Auto) [place] # (Auto) Seg Neutrophils % Seg Neuts % (Manual) Lymphocytes % (Manual) Monocytes % (Manual) Nucleated RBC % Seg Neutrophils # Seg Neutrophils # Man Lymphocytes # (Manual) Monocytes # (Manual) PT INR APTT D-Dimer Heparin Anti-Xa Level ABG pH POC ABG pCO2 POC ABG pO2 ABG pO2 ABG HCO3 ABG O2 Saturation ABG Base Excess ABG Hemoglobin ABG Oxyhemoglobin ABG Sodium ABG Potassium ABG Glucose Oxyhemoglobin Sodium Potassium Chloride Carbon Dioxide BUN Creatinine Glucose POC Glucose 172 H 150 H Lactic Acid Calcium Phosphorus Magnesium Ferritin Lactate Dehydrogenase C-Reactive Protein NT-Pro-B Natriuret Pep Total Protein Albumin Triglycerides Arterial Blood Glucose Ur Specific [place] Coronavirus (PCR) 04/10/21 04/10/21 04/10/21 13:00 17:46 21:37 WBC RBC Hgb Hct MCV MCHC RDW Plt Count Lymph % (Auto) [place] % (Auto) Lymph # (Auto) [place] # (Auto) Seg Neutrophils % Seg Neuts % (Manual) Lymphocytes % (Manual) Monocytes % (Manual) Nucleated RBC % Seg Neutrophils # Seg Neutrophils # Man Lymphocytes # (Manual) Monocytes # (Manual) PT INR APTT D-Dimer Heparin Anti-Xa Level ABG pH POC ABG pCO2 POC ABG pO2 ABG pO2 ABG HCO3 ABG O2 Saturation ABG Base Excess ABG Hemoglobin ABG Oxyhemoglobin ABG Sodium ABG Potassium ABG Glucose Oxyhemoglobin Sodium Potassium Chloride 96.4 L Carbon Dioxide 34 H BUN Creatinine 0.5 L Glucose 165 H POC Glucose 165 H 166 H Lactic Acid Calcium Phosphorus Magnesium Ferritin Lactate Dehydrogenase C-Reactive Protein NT-Pro-B Natriuret Pep Total Protein Albumin Triglycerides Arterial Blood Glucose Ur Specific [place] Coronavirus (PCR) 04/10/21 04/11/21 04/11/21 23:56 04:30 05:39 WBC 11.5 H RBC 3.02 L Hgb 8.9 L Hct 27.8 L MCV MCHC RDW 16.0 H Plt Count 505 H Lymph % (Auto) [place] % (Auto) Lymph # (Auto) [place] # (Auto) Seg Neutrophils % Seg Neuts % (Manual) Lymphocytes % (Manual) Monocytes % (Manual) Nucleated RBC % Seg Neutrophils # Seg Neutrophils # Man Lymphocytes # (Manual) Monocytes # (Manual) PT INR APTT D-Dimer Heparin Anti-Xa Level ABG pH POC ABG pCO2 POC ABG pO2 ABG pO2 ABG HCO3 ABG O2 Saturation ABG Base Excess ABG Hemoglobin ABG Oxyhemoglobin ABG Sodium ABG Potassium ABG Glucose Oxyhemoglobin Sodium Potassium Chloride Carbon Dioxide BUN Creatinine Glucose POC Glucose 156 H 164 H Lactic Acid Calcium Phosphorus Magnesium Ferritin Lactate Dehydrogenase C-Reactive Protein NT-Pro-B Natriuret Pep Total Protein Albumin Triglycerides Arterial Blood Glucose Ur Specific [place] Coronavirus (PCR) 04/11/21 04/11/21 04/11/21 06:47 06:47 11:29 WBC RBC 3.35 L Hgb 9.8 L Hct 30.7 L MCV MCHC RDW 16.3 H Plt Count 520 H Lymph % (Auto) [place] % (Auto) Lymph # (Auto) [place] # (Auto) Seg Neutrophils % Seg Neuts % (Manual) 76.0 H Lymphocytes % (Manual) 10.0 L Monocytes % (Manual) Nucleated RBC % Seg Neutrophils # Seg Neutrophils # Man 8.3 H Lymphocytes # (Manual) 1.1 L Monocytes # (Manual) PT INR APTT D-Dimer Heparin Anti-Xa Level ABG pH POC ABG pCO2 POC ABG pO2 ABG pO2 ABG HCO3 ABG O2 Saturation ABG Base Excess ABG Hemoglobin ABG Oxyhemoglobin ABG Sodium ABG Potassium ABG Glucose Oxyhemoglobin Sodium Potassium Chloride 97.7 L Carbon Dioxide 34 H BUN Creatinine 0.4 L Glucose 178 H POC Glucose 170 H Lactic Acid Calcium Phosphorus Magnesium Ferritin Lactate Dehydrogenase C-Reactive Protein NT-Pro-B Natriuret Pep Total Protein Albumin Triglycerides Arterial Blood Glucose Ur Specific [place] Coronavirus (PCR) 04/11/21 04/11/21 04/11/21 18:17 18:17 18:17 WBC RBC 3.22 L Hgb 9.5 L Hct 29.8 L MCV MCHC RDW 16.0 H Plt Count Lymph % (Auto) [place] % (Auto) Lymph # (Auto) [place] # (Auto) Seg Neutrophils % Seg Neuts % (Manual) Lymphocytes % (Manual) Monocytes % (Manual) Nucleated RBC % Seg Neutrophils # Seg Neutrophils # Man Lymphocytes # (Manual) Monocytes # (Manual) PT INR APTT 61.1 H* D-Dimer Heparin Anti-Xa Level ABG pH POC ABG pCO2 POC ABG pO2 ABG pO2 ABG HCO3 ABG O2 Saturation ABG Base Excess ABG Hemoglobin ABG Oxyhemoglobin ABG Sodium ABG Potassium ABG Glucose Oxyhemoglobin Sodium Potassium Chloride Carbon Dioxide BUN Creatinine 0.3 L Glucose POC Glucose Lactic Acid Calcium Phosphorus Magnesium Ferritin Lactate Dehydrogenase C-Reactive Protein NT-Pro-B Natriuret Pep Total Protein Albumin Triglycerides Arterial Blood Glucose Ur Specific [place] Coronavirus (PCR) 04/11/21 04/12/21 04/12/21 18:25 00:19 05:11 WBC RBC 2.92 L Hgb 8.6 L Hct 26.9 L MCV MCHC RDW 16.3 H Plt Count 460 H Lymph % (Auto) [place] % (Auto) Lymph # (Auto) [place] # (Auto) Seg Neutrophils % Seg Neuts % (Manual) Lymphocytes % (Manual) Monocytes % (Manual) Nucleated RBC % Seg Neutrophils # Seg Neutrophils # Man Lymphocytes # (Manual) Monocytes # (Manual) PT INR APTT D-Dimer Heparin Anti-Xa Level ABG pH POC ABG pCO2 POC ABG pO2 ABG pO2 ABG HCO3 ABG O2 Saturation ABG Base Excess ABG Hemoglobin ABG Oxyhemoglobin ABG Sodium ABG Potassium ABG Glucose Oxyhemoglobin Sodium Potassium Chloride Carbon Dioxide BUN Creatinine Glucose POC Glucose 167 H 128 H Lactic Acid Calcium Phosphorus Magnesium Ferritin Lactate Dehydrogenase C-Reactive Protein NT-Pro-B Natriuret Pep Total Protein Albumin Triglycerides Arterial Blood Glucose Ur Specific [place] Coronavirus (PCR) 04/12/21 04/12/21 04/12/21 05:11 05:11 06:23 WBC RBC Hgb Hct MCV MCHC RDW Plt Count Lymph % (Auto) [place] % (Auto) Lymph # (Auto) [place] # (Auto) Seg Neutrophils % Seg Neuts % (Manual) Lymphocytes % (Manual) Monocytes % (Manual) Nucleated RBC % Seg Neutrophils # Seg Neutrophils # Man Lymphocytes # (Manual) Monocytes # (Manual) PT INR APTT D-Dimer Heparin Anti-Xa Level 1.03 H ABG pH POC ABG pCO2 POC ABG pO2 ABG pO2 ABG HCO3 ABG O2 Saturation ABG Base Excess ABG Hemoglobin ABG Oxyhemoglobin ABG Sodium ABG Potassium ABG Glucose Oxyhemoglobin Sodium Potassium Chloride Carbon Dioxide 34 H BUN Creatinine 0.3 L Glucose 153 H POC Glucose 162 H Lactic Acid Calcium Phosphorus Magnesium Ferritin Lactate Dehydrogenase C-Reactive Protein NT-Pro-B Natriuret Pep Total Protein Albumin Triglycerides Arterial Blood Glucose Ur Specific [place] Coronavirus (PCR) 04/12/21 04/12/21 04/12/21 09:45 11:08 15:56 WBC RBC Hgb Hct MCV MCHC RDW Plt Count Lymph % (Auto) [place] % (Auto) Lymph # (Auto) [place] # (Auto) Seg Neutrophils % Seg Neuts % (Manual) Lymphocytes % (Manual) Monocytes % (Manual) Nucleated RBC % Seg Neutrophils # Seg Neutrophils # Man Lymphocytes # (Manual) Monocytes # (Manual) PT INR APTT D-Dimer Heparin Anti-Xa Level ABG pH POC ABG pCO2 POC ABG pO2 ABG pO2 70.8 L ABG HCO3 41.0 H ABG O2 Saturation ABG Base Excess 13.7 H ABG Hemoglobin 8.3 L ABG Oxyhemoglobin ABG Sodium ABG Potassium ABG Glucose Oxyhemoglobin 94.0 L Sodium Potassium Chloride Carbon Dioxide BUN Creatinine Glucose POC Glucose 174 H 146 H Lactic Acid Calcium Phosphorus Magnesium Ferritin Lactate Dehydrogenase C-Reactive Protein NT-Pro-B Natriuret Pep Total Protein Albumin Triglycerides Arterial Blood Glucose Ur Specific [place] Coronavirus (PCR) 04/12/21 04/12/2104/13/22 21:55 23:25 04:34 WBC 12.5 H RBC 2.97 L Hgb 8.9 L Hct 27.3 L MCV MCHC RDW 16.4 H Plt Count 470 H Lymph % (Auto) [place] % (Auto) Lymph # (Auto) [place] # (Auto) Seg Neutrophils % Seg Neuts % (Manual) Lymphocytes % (Manual) Monocytes % (Manual) Nucleated RBC % Seg Neutrophils # Seg Neutrophils # Man Lymphocytes # (Manual) Monocytes # (Manual) PT INR APTT D-Dimer Heparin Anti-Xa Level ABG pH POC ABG pCO2 POC ABG pO2 ABG pO2 ABG HCO3 ABG O2 Saturation ABG Base Excess ABG Hemoglobin ABG Oxyhemoglobin ABG Sodium ABG Potassium ABG Glucose Oxyhemoglobin Sodium Potassium Chloride Carbon Dioxide BUN Creatinine Glucose POC Glucose 142 H 170 H Lactic Acid Calcium Phosphorus Magnesium Ferritin Lactate Dehydrogenase C-Reactive Protein NT-Pro-B Natriuret Pep Total Protein Albumin Triglycerides Arterial Blood Glucose Ur Specific [place] Coronavirus (PCR) 04/13/21 04/13/21 04/13/21 04:34 05:17 11:14 WBC RBC Hgb Hct MCV MCHC RDW Plt Count Lymph % (Auto) [place] % (Auto) Lymph # (Auto) [place] # (Auto) Seg Neutrophils % Seg Neuts % (Manual) Lymphocytes % (Manual) Monocytes % (Manual) Nucleated RBC % Seg Neutrophils # Seg Neutrophils # Man Lymphocytes # (Manual) Monocytes # (Manual) PT INR APTT D-Dimer Heparin Anti-Xa Level ABG pH POC ABG pCO2 POC ABG pO2 ABG pO2 ABG HCO3 ABG O2 Saturation ABG Base Excess ABG Hemoglobin ABG Oxyhemoglobin ABG Sodium ABG Potassium ABG Glucose Oxyhemoglobin Sodium Potassium Chloride 96.6 L Carbon Dioxide 41 H* D BUN Creatinine 0.3 L Glucose 171 H POC Glucose 141 H 149 H Lactic Acid Calcium Phosphorus Magnesium Ferritin Lactate Dehydrogenase C-Reactive Protein NT-Pro-B Natriuret Pep Total Protein Albumin Triglycerides Arterial Blood Glucose Ur Specific [place] Coronavirus (PCR) 04/13/21 04/13/21 04/14/21 15:51 23:35 04:32 WBC 13.8 H RBC 2.64 L Hgb 8.0 L Hct 24.1 L MCV MCHC RDW 16.1 H Plt Count Lymph % (Auto) [place] % (Auto) Lymph # (Auto) [place] # (Auto) Seg Neutrophils % Seg Neuts % (Manual) Lymphocytes % (Manual) Monocytes % (Manual) Nucleated RBC % Seg Neutrophils # Seg Neutrophils # Man Lymphocytes # (Manual) Monocytes # (Manual) PT INR APTT D-Dimer Heparin Anti-Xa Level ABG pH POC ABG pCO2 POC ABG pO2 ABG pO2 ABG HCO3 ABG O2 Saturation ABG Base Excess ABG Hemoglobin ABG Oxyhemoglobin ABG Sodium ABG Potassium ABG Glucose Oxyhemoglobin Sodium Potassium Chloride Carbon Dioxide BUN Creatinine Glucose POC Glucose 136 H 167 H Lactic Acid Calcium Phosphorus Magnesium Ferritin Lactate Dehydrogenase C-Reactive Protein NT-Pro-B Natriuret Pep Total Protein Albumin Triglycerides Arterial Blood Glucose Ur Specific [place] Coronavirus (PCR) 04/14/21 04/14/21 04/14/21 04:32 05:18 11:03 WBC RBC Hgb Hct MCV MCHC RDW Plt Count Lymph % (Auto) [place] % (Auto) Lymph # (Auto) [place] # (Auto) Seg Neutrophils % Seg Neuts % (Manual) Lymphocytes % (Manual) Monocytes % (Manual) Nucleated RBC % Seg Neutrophils # Seg Neutrophils # Man Lymphocytes # (Manual) Monocytes # (Manual) PT INR APTT D-Dimer Heparin Anti-Xa Level ABG pH POC ABG pCO2 POC ABG pO2 ABG pO2 ABG HCO3 ABG O2 Saturation ABG Base Excess ABG Hemoglobin ABG Oxyhemoglobin ABG Sodium ABG Potassium ABG Glucose Oxyhemoglobin Sodium Potassium Chloride 95.5 L Carbon Dioxide 38 H BUN Creatinine 0.4 L Glucose 141 H POC Glucose 140 H 143 H Lactic Acid Calcium Phosphorus Magnesium Ferritin Lactate Dehydrogenase C-Reactive Protein NT-Pro-B Natriuret Pep Total Protein Albumin Triglycerides Arterial Blood Glucose Ur Specific [place] Coronavirus (PCR) Allied health notes reviewed: RT
[2021-04-14] MEDS: CEFEPIME/NS 2 GM/100 ML 2 GM/100 ML BAG IV SCH ×2 (15:55→21:44)
[2021-04-14] MEDS: fentaNYL 100 MCG/2 ML INJ IV PRN ×2 (15:56→21:37)
[2021-04-14] MEDS ORDERED: FUROSEMIDE 20 MG/2 ML INJ IV ONE (17:00)
[2021-04-14 17:50] LABS: Bilirubin,Urine NEG (Negative); Blood,Urine NEG (Negative); Color,Urine Yellow (Yellow); Protein,Urine <15 mg/dL mg/dL (Negative)
[2021-04-14 17:52] LABS: RBC,Urine < 1.0 /HPF (0.0-6.0); WBC,Urine < 1.0 /HPF (0.0-6.0)
[2021-04-14] MEDS: oxyCODONE 5 MG TAB PO PRN (18:09)
[2021-04-14] MEDS: INSULIN GLARGINE 100 UNITS/ML SUB-Q SCH (21:40)
[2021-04-15] MEDS: INSULIN LISPRO 100 UNIT/ML SUB-Q SCH ×4 (00:16→17:56)
--- NOTE | 2021-04-15 03:21 | XRay Report ---
XR chest 1V ap INDICATION / CLINICAL INFORMATION: Hypoxia. COMPARISON: 04/13/2021 FINDINGS: SUPPORT DEVICES: Unchanged. HEART /PULMONARY VASCULATURE: Unchanged. LUNGS / PLEURA: Lung parenchyma is not significantly changed. No pneumothorax. IMPRESSION: 1. No significant interval change. Signer Name: Jaya Fernandes MD Signed: 04/15/2021 3:16 AM Workstation Name: [id number]
[2021-04-15 05:35] LABS: Hematocrit 27.1 % (35.5-45.6); Hemoglobin 8.9 gm/dl (11.8-15.2); Mean Corpuscular HGB Conc 33 % (32-34); Mean Corpuscular Volume 91 fl (84-94); Platelet Count 507 K/mm3 (140-440); Red Blood Count 2.96 M/mm3 (3.65-5.03); Red Cell Distribution Width 16.5 % (13.2-15.2)
[2021-04-15] MEDS: hydrALAZINE 25 MG TAB PO SCH ×3 (05:36→21:34)
[2021-04-15] MEDS: CEFEPIME/NS 2 GM/100 ML 2 GM/100 ML BAG IV SCH ×3 (05:36→22:00)
[2021-04-15 05:46] LABS: Blood Urea Nitrogen 20 mg/dL (9-20); Calcium 9.7 mg/dL (8.4-10.2); Hemolysis Index 10
[2021-04-15 05:47] LABS: BUN/Creatinine Ratio 50
[2021-04-15] MEDS: BUDESONIDE 0.5 MG/2 ML NEBU IH SCH ×2 (09:03→19:16)
[2021-04-15] MEDS: ARFORMOTEROL 15 MCG/2 ML NEBU IH SCH ×2 (09:03→19:16)
[2021-04-15] MEDS ORDERED: FUROSEMIDE 40 MG/4 ML INJ IV NR (09:30)
[2021-04-15] MEDS: FAMOTIDINE 20 MG TAB FEEDTUBE SCH ×2 (11:11→21:36)
[2021-04-15] MEDS: amLODIPine 5 MG TAB PO SCH (11:12)
[2021-04-15] MEDS: APIXABAN 5 MG TAB PO SCH ×2 (11:12→21:35)
[2021-04-15] MEDS: DOXAZOSIN 1 MG TAB PO SCH ×2 (11:12→21:34)
[2021-04-15] MEDS: POLYETHYLENE GLYCOL 3350 17 GM POWDER FEEDTUBE SCH (11:18)
[2021-04-15] MEDS: SENNOSIDES/DOCUSATE SODIUM 8.6/50 MG TAB FEEDTUBE SCH ×2 (11:18→21:37)
[2021-04-15] MEDS: METOPROLOL TARTRATE 25 MG TAB PO SCH ×2 (11:18→21:35)
--- NOTE | 2021-04-15 11:58 | Progress Note ---
<DEBBY ELLISON - Last Filed: 04/15/21 17:30> Assessment and Plan Assessment and plan: This is a 61-year-old male with past medical history of HTN and DM admitted for sepsis and acute hypoxic respiratory failure 2/2 COVID pneumonia requiring ventilatory support. Hospital Course to Date: 03/09: The patient was seen and evaluated today, and he was found to be hemodynamically stable. The patient is currently on BiPAP for possible COVID-19 pneumonia. He was started on Lovenox 1mg/kg for DVT ppx in the setting of d- dimer > 10,000. Infectious Disease was consulted. The patient is pending a TTE. 03/10: No acute events overnight, patient was intubated in the afternoon transferred to ICU 03/11: Patient started on Lantus, free water flushes increased, propofol drip resumed and oral antihypertensive added. 03/12: lantus increased, k at 5, will monitor. I updated his family and his stated that he is not vaccinated. He does have HTN and she will call the RN to update home medications. She did say he takes bystolic and amlopine. She inquired about ventilator and lab work. She had no further questions. 03/13: KVNG overnight. Patient remains hyperglycemic, basal insulin adjusted and increased to Q12hrs. Patient is overall net positive since admit X1 dose of IV lasix, repeat BMP this afternoon. 03/14: Failed SAT this am due to increase agitation, tachycardia and hypertension. Remains on propofol and fentanyl gtt. Hyperkalemia treated with PO kayaxalate. Patient responded to IV lasix yesterday additional dose again today for a net negative balance. Repeat BMP this afternoon. Insulin adjusted for hyperglycemia. 03/15: Remains encephalopathic, not following commansd. Orders placed for CT head/Brain and Neuro consulted. Rectal bleeding subsided, most likely due to hemorrhoids. H&H is stable will continue to monitor. Kayaxexalate for high K, repeat labs 4 to 6hrs post treatment. 03/16: Still agiated this am, CT head with no acute Abn. CXR and ABG noted- evolving pna and worsening hypoxia, now with low grade fevers. Sputum culture ordered, IV Abx added, ID on cosult. 03/17: This am ABG noted, hypoxia improved. Continue to wean FiO2 as tolerated. Still with low grade fevers, on IV Abx per ID. Still with periods of confusion despite sedation, seroquel increased. F/u CXR in the am 03/18: still very agitated especially when off sedation, with hypertension and tachycardia. Continue sedation for RASS -2, PRN antihypertensive for SPB greater than 160. This febrile this am, continue current IV abx per ID 03/19: Patient afebrile overnight, continue IV Abx per ID. ABG also improved this am, continue to wean FIO2 as tolerated. PRN antihypertensive for hypertension. 03/20: Hyperkalemia treated with Kayexalate, Good discontinued, vancomycin and cefepime stopped started Bactrim by ID. Steroid taper started. 03/21: BB started for hypertension, Seroquel increased for agitation and Librium started no acute events reported overnight. [facility] made vent changes 03/22: Adjustment to anxiolytics, respiratory rate on ventilator per [facility]. Patient noted to have bleeding hemorrhoids with clot, requested RN to remove bowel management system and will order Preparation H. 03/23: Given no confirmed DVT or PE (only superficial thrombus noted on Dopplers) therapeutic Lovenox changed to prophylactic Lovenox. Started on doxazosin to help with retention. Consulted surgery for tracheostomy and propofol discontinued. 03/24: Surgery consult completed, patient changed to prophylaxis anticoagulation, started on doxazosin yesterday with plans to remove Good catheter in 48 hours. Patient with slight hypokalemia today and given Kayexalate. No acute events reported overnight. 03/25: No acute events reported overnight. Patient remains on fentanyl drip and on CPAP trial this morning. 03/26: no acute events reported overnight. placed on CPAP this AM, remains on fent/librium. scheduled for trach/peg this week. 03/27: Hypoglycemic this am, will decreased lantus to Qhs. Plan for possible Trach and Peg by Gen Surg this am. Case management to arrange possible LTAC placement 03/28: KVNG overnight. Tolerating PST this am. Plan for trach and PEG tomorrow by Gen. Surgery, NPO after midnight. 03/29: No significant changes overnight. Plan for trach and Peg today. Case management to arrange possible LTAC placement 03/30. S/p Trach and PEG, no complications noted. High residual yesterday despite NPO status, reglan added X2 days. Per RN no residual this am, patient is tolerating TF. Continue to advance TF as tolerated. Norvasc added for hypertension. Pitting edema also appreciated, some diuretic might be beneficial, will d/w CCM. Continue daily PST as tolerated. 03/31: Patient remains on the vent still on fentanyl gtt with periods of agitation. PRN analgesia added, plan to start weaning off fentanyl gtt. Febrile this am, completed IV abx course. Will panculture for now, ID is also following. 04/01: Still febrile overnight, cultures result pending, continue IV ABx per ID. Failed PST this am. Continue daily PST and vent wean per [facility]. Case management to arrange possible placement. 04/02: KVNG overnight. Fevers improved overnight, continue to follow cultures data, IV ABx per ID. Continue daily PST and wean vent as per [facility].\ 04/03: Given low procalcitonin, unchanged CXR and cultures with no growth cefepime was discontinued by ID. LTAC evaluation ongoing. No acute events reported overnight. 04/04: IV Lasix stopped today, Seroquel taper started, fentanyl drip on hold and steroids stopped. Pressure support trial again today. 04/05: Patient had to be restarted on fentanyl drip therefore Seroquel was increased back to 250 twice daily and he was started on scheduled narcotics and efforts to wean fentanyl drip. Doxazosin was increased to twice daily as patient still had retention issues on doxazosin once a day. Patient was denied LTAC placement. CPAP trial today. 04/06: Right upper extremity ultrasound obtained due to edema which showed DVT. Patient started on heparin drip. Overnight patient had hypoxia, tachypnea, tachycardia, hypotension and FiO2 was increased to 100%. RT titrating as tolerated. Plan was to start T-piece trials today. Patient has been denied LTAC placement. 04/07: BLE dopplar, continue lasix per [facility], CXR in AM. Increase in fio2 overnight d/t desaturation. Wean FiO2 as tolerated. 04/08: Patient remains on 65% FiO2, s/p Lasix for 3 doses, hyperkalemia noted today and medically treated. [facility] plans to consult heme/onc once FiO2 decreased. Remains on heparin gtt 04/09: No acute events reported overnight, possible heme-onc consult on Saturday or Saturday regarding upper extremity DVT, wean FiO2 as tolerated. Repeat CT head on Monday 04/10: Patient mentation is unchanged, repeat CT head today. Remains on heparin gtt per protocol. Continue daily PST as tolerated. 04/11: Increased work of breathing and high RR overnight, vent FiO2 increased to 55%. Resolved this am, patient is tolerating PST, no acute distress noted. Wean Fio2 as tolerated for SPO2 above 92%, Follow up CXR and ABG in the am. Antihypertensive regimen adjusted for better BP control. 04/12: Patient with coarse lungs and increased secretion today. This am CXR noted with worsen infiltrate, 40 of Lasix given, repeat CXR in the am. Patient remains afebrile, complete IV Abx course, VSS. Transitioned to PO Eliquis overnight, continue to keep patient net negative for better lung compliance. Continue daily PST as tolerated. 04/13: Patient is off sedation this am. Remains unresponsive. Librium D/C and Seroquel was adjusted to Qhs, PRN analgesia for pain management. Patient responded well to IV lasix, this am CXR with some improvement, additional IV lasix ordered again today. high CO2 also noted from this am, ABG ordered. Patient is tolerating PST this am, SPO2 remains above 95%. Continue daily PST plan to get patient off the vent for possible SNF placemement 04/14: Patient mentation is unchanged despite reducing sedative agents. Will hold all scheduled sedatives agents for now, PRN analgesics for pain management and vent synchrony. Patient spike a temp this am, orders placed for cultures, IV abx per ID. Additional lasix today, F/u CXR in the am. Patient is tolerating PST this am. 04/15: Remains febrile overnight. Culture data pending, back on IV Abx per ID. Gentle fluid management with IV lasix. Keep patient at a net negative balance. Continue daily PST as tolerated. Assessment and Plan #Acute Hypoxic Respiratory Failure #COVID Pneumonia - Intubated on 03/10 due to worsen hypoxia on BIPAP - 2/2 s/p Tracheostomy - Vent setting:PRVC-40%,8,12,450 - This am ABG pending - CCM consulted, appreciate recommendations - Continue Nebs per CCM - keep patient net negative for better lung compliance - VAP bundle addressed - Aspiration precaution HOB above 30 - Daily SBT and SAT trials as tolerated - PRN ABG and CXR - Continue SPO2 monitoring for SPO2 goal above 92% #Sepsis #COVID Pneumonia #Leukocytosis #Lactic Acidosis- Resolved - COVID PCR positive - UA neg, Blood cultures and Sputum culture NGTD - repeat Bculture NGTD, 03/17 Sputum Cult + Stenotrophomonas - Infectious disease consulted, appreciate recommendation - S/p Actemra 03/10/2021 - Completed X5days course of IV remdesivir - spike temp today, TMAx 101.3 - Panculture, IV abx per ID - Monitor WBC and temperature curve - Trend CBC #Neuro:Acute Encephalopathy - Off sedation, unresponsive - CT head/brain no acute Abn. - Repeat CT head noted - Librium and seroquel on hold - Avoid benzodiazepine to reduce the possibility of delirium - Prn analgesia for CPOT greater than 3 - Maintenance of sleep-wake cycle - Neurology on consult #CV: Hypertension - 03/09 Echocardiogram shows a mildly dilated ascending aorta, normal LV systolic function, mild concentric LVH, LVEF 60 to 65% - Continue current antihypertensive regimen - PRN Labetalol for SBP above 160 - Continue Blood pressure monitoring per protocol #Urinary retention - Good reinserted for retention - Strict intake and output - Avoid nephrotoxic medications; Renally dose medications - Monitor and replace electrolytes as needed - Trend BMP #Acute right upper extremity DVT - Bilateral lower extremity ultrasounds negative for DVT, superficial thrombus in left gastrocnemius vein - CTA chest shows no gross pulm embolism - bilateral upper extremity ultrasound shows DVT in right upper extremity - Transitioned to PO Eliquis - SCDs to BLE while in bed - Transfuse hemoglobin less than 7 - Monitor for signs of bleeding #Endo:Type 2 DM - Continue high dose SSI Q6hrs - Lantus qHs - Avoid Hypoglycemia The high probability of a clinically significant, sudden or life threatening deterioration of the [Respiratory] system(s) required my full and direct attention, intervention and personal management. The aggregate critical care time was [60] minutes. This time is in addition to time spent performing reported procedures but includes the following: [x] Data Review and interpretation [x] Patient assessment and monitoring of vital signs [x] Documentation [x] Medication orders and management Disposition Plan: ICU Total Time Spent with Patient (Minutes): 60 History Interval history: Patient seen and examined at the bedside. Remains on the vent. mentation is unchanged. Remains febrile throughout the night. Otherwise, KVNG overnight Hospitalist Physical - Constitutional Vitals: Temp Pulse Resp BP Pulse Ox 100.4 F H 106 H 40 H 142/70 97 04/15/21 08:00 04/15/21 11:18 04/15/21 08:00 04/15/21 11:18 04/15/21 08:00 General appearance: Present: no acute distress, well-nourished, obese, other (Unresponsive) - EENT Eyes: Present: PERRL - Respiratory Respiratory effort: normal Respiratory: bilateral: rhonchi - Cardiovascular Rhythm: regular Heart Sounds: Present: S1 & S2 - Extremities Extremities: no ischemia, pulses intact, pulses symmetrical Extremity abnormal: edema - Peripheral Assessment Generalized Edema Type: Pitting Edema Degree: 3+ Capillary Refill: < 3 seconds Skin Temperature: Warm Peripheral Pulses: within normal limits - Abdominal General gastrointestinal: soft, non-distended, normal bowel sounds - Integumentary Integumentary: Present: warm, dry - Psychiatric Psychiatric: other (Unresponsive) - Neurologic Neurologic: other (Unresponsive) - Allied Health Allied health notes reviewed: nursing Results - Labs CBC & Chem 7: 04/15/21 04:44 04/15/21 04:44 Labs: Laboratory Last Values WBC 15.8 K/mm3 (4.5-11.0) H 04/15/21 04:44 RBC 2.96 M/mm3 (3.65-5.03) L 04/15/21 04:44 Hgb 8.9 gm/dl (11.8-15.2) L 04/15/21 04:44 Hct 27.1 % (35.5-45.6) L 04/15/21 04:44 MCV 91 fl (84-94) 04/15/21 04:44 MCH 30 pg (28-32) 04/15/21 04:44 MCHC 33 % (32-34) 04/15/21 04:44 RDW 16.5 % (13.2-15.2) H 04/15/21 04:44 Plt Count 507 K/mm3 (140-440) H 04/15/21 04:44 Lymph % (Auto) 7.6 % (13.4-35.0) L 03/31/21 13:30 [place] % (Auto) 9.5 % (0.0-7.3) H 03/31/21 13:30 Eos % (Auto) 4.1 % (0.0-4.3) 03/31/21 13:30 Baso % (Auto) 0.5 % (0.0-1.8) 03/31/21 13:30 Lymph # (Auto) 0.6 K/mm3 (1.2-5.4) L 03/31/21 13:30 [place] # (Auto) 0.7 K/mm3 (0.0-0.8) 03/31/21 13:30 Eos # (Auto) 0.3 K/mm3 (0.0-0.4) 03/31/21 13:30 Baso # (Auto) 0.0 K/mm3 (0.0-0.1) 03/31/21 13:30 Add Manual Diff Complete 04/11/21 06:47 Total Counted 100 04/11/21 06:47 Seg Neutrophils % 78.3 % (40.0-70.0) H 03/31/21 13:30 Seg Neuts % (Manual) 76.0 % (40.0-70.0) H 04/11/21 06:47 Band Neutrophils % 2.0 % 04/11/21 06:47 Lymphocytes % (Manual) 10.0 % (13.4-35.0) L 04/11/21 06:47 Reactive Lymphs % (Man) 0 % 04/11/21 06:47 Monocytes % (Manual) 7.0 % (0.0-7.3) 04/11/21 06:47 Eosinophils % (Manual) 4.0 % (0.0-4.3) 04/11/21 06:47 Basophils % (Manual) 0 % (0.0-1.8) 04/11/21 06:47 Metamyelocytes % 1.0 % 04/11/21 06:47 Myelocytes % 0 % 04/11/21 06:47 Promyelocytes % 0 % 04/11/21 06:47 Blast Cells % 0 % 04/11/21 06:47 Nucleated RBC % Not Reportable 04/11/21 06:47 Seg Neutrophils # 5.8 K/mm3 (1.8-7.7) 03/31/21 13:30 Seg Neutrophils # Man 8.3 K/mm3 (1.8-7.7) H 04/11/21 06:47 Band Neutrophils # 0.2 K/mm3 04/11/21 06:47 Lymphocytes # (Manual) 1.1 K/mm3 (1.2-5.4) L 04/11/21 06:47 Abs React Lymphs (Man) 0.0 K/mm3 04/11/21 06:47 Monocytes # (Manual) 0.8 K/mm3 (0.0-0.8) 04/11/21 06:47 Eosinophils # (Manual) 0.4 K/mm3 (0.0-0.4) 04/11/21 06:47 Basophils # (Manual) 0.0 K/mm3 (0.0-0.1) 04/11/21 06:47 Metamyelocytes # 0.1 K/mm3 04/11/21 06:47 Myelocytes # 0.0 K/mm3 04/11/21 06:47 Promyelocytes # 0.0 K/mm3 04/11/21 06:47 Blast Cells # 0.0 K/mm3 04/11/21 06:47 WBC Morphology Not Reportable 04/11/21 06:47 Hypersegmented Neuts Not Reportable 04/11/21 06:47 Hyposegmented Neuts Not Reportable 04/11/21 06:47 Hypogranular Neuts Not Reportable 04/11/21 06:47 Smudge Cells Not Reportable 04/11/21 06:47 Toxic Granulation 1+ 04/11/21 06:47 Toxic Vacuolation Not Reportable 04/11/21 06:47 Dohle Bodies Not Reportable 04/11/21 06:47 Pelger-Huet Anomaly Not Reportable 04/11/21 06:47 Mely Rods Not Reportable 04/11/21 06:47 Platelet Estimate Consistent w auto 04/11/21 06:47 Clumped Platelets Not Reportable 04/11/21 06:47 Plt Clumps, EDTA Not Reportable 04/11/21 06:47 Large Platelets Not Reportable 04/11/21 06:47 Giant Platelets Not Reportable 04/11/21 06:47 Platelet Satelliting Not Reportable 04/11/21 06:47 Plt Morphology Comment Not Reportable 04/11/21 06:47 RBC Morphology Not Reportable 04/11/21 06:47 Dimorphic RBCs Not Reportable 04/11/21 06:47 Polychromasia Not Reportable 04/11/21 06:47 Hypochromasia Not Reportable 04/11/21 06:47 Poikilocytosis Not Reportable 04/11/21 06:47 Anisocytosis 1+ 04/11/21 06:47 Microcytosis Not Reportable 04/11/21 06:47 Macrocytosis Not Reportable 04/11/21 06:47 Spherocytes Not Reportable 04/11/21 06:47 Pappenheimer Bodies Not Reportable 04/11/21 06:47 Sickle Cells Not Reportable 04/11/21 06:47 Target Cells Not Reportable 04/11/21 06:47 Tear Drop Cells Not Reportable 04/11/21 06:47 Ovalocytes Not Reportable 04/11/21 06:47 Helmet Cells Not Reportable 04/11/21 06:47 [place] Hot[place] Bodies Not Reportable 04/11/21 06:47 [place] Rings Not Reportable 04/11/21 06:47 [place] Cells Not Reportable 04/11/21 06:47 Bite Cells Not Reportable 04/11/21 06:47 Crenated Cell Not Reportable 04/11/21 06:47 Elliptocytes Not Reportable 04/11/21 06:47 Acanthocytes (Spur) Not Reportable 04/11/21 06:47 Rouleaux Not Reportable 04/11/21 06:47 Hemoglobin C Crystals Not Reportable 04/11/21 06:47 Schistocytes Not Reportable 04/11/21 06:47 Malaria parasites Not Reportable 04/11/21 06:47 Shaheen Bodies Not Reportable 04/11/21 06:47 Hem Pathologist Commnt No 04/11/21 06:47 PT 13.4 Sec. (12.2-14.9) 04/11/21 18:17 INR 0.92 (0.87-1.13) 04/11/21 18:17 APTT 61.1 Sec. (24.2-36.6) H* 04/11/21 18:17 D-Dimer 1359.12 ng/mlDDU (0-234) H 03/17/21 04:40 Heparin Anti-Xa Level 1.03 U.I./ml (0.3-0.7) H 04/12/21 05:11 ABG pH 7.365 pH Units (7.350-7.450) 04/12/21 09:45 POC ABG pCO2 57.4 mmHg (32.0-48.0) H 04/06/21 04:49 ABG pCO2 73.4 mm Hg 04/12/21 09:45 POC ABG pO2 55.1 mmHg (83-108) L 04/06/21 04:49 ABG pO2 70.8 mm Hg (80.0-90.0) L 04/12/21 09:45 POC ABG HCO3 36.2 04/06/21 04:49 ABG HCO3 41.0 mmol/L (20.0-26.0) H 04/12/21 09:45 ABG O2 Saturation 96.3 % (95.0-99.0) 04/12/21 09:45 ABG O2 Content 11.0 (0.0-44) 04/12/21 09:45 POC ABG Base Excess 10.0 04/06/21 04:49 ABG Base Excess 13.7 mmol/L (-2.0-3.0) H 04/12/21 09:45 ABG Hemoglobin 8.3 gm/dl (14.0-18.0) L 04/12/21 09:45 ABG Oxyhemoglobin 87.5 (94-98) L 04/06/21 04:49 ABG Carboxyhemoglobin 1.8 % (0.0-5.0) 04/12/21 09:45 ABG Methemoglobin 0.6 % (0.0-1.5) 04/12/21 09:45 ABG Sodium 134.2 mmol/L (136.0-145.0) L 03/12/21 21:54 ABG Potassium 4.9 mmol/L (3.40-4.50) H 03/12/21 21:54 ABG Chloride 99.0 mmol/L (98-107) 03/12/21 21:54 ABG Glucose 306 mg/dL (65-95) H 03/12/21 21:54 Oxyhemoglobin 94.0 % (95.0-99.0) L 04/12/21 09:45 Carboxyhemoglobin 0.8 (0.5-1.5) 04/06/21 04:49 FiO2 55 % 04/12/21 09:45 FiO2 % 40.0 04/06/21 04:49 Sodium 140 mmol/L (137-145) 04/15/21 04:44 Potassium 4.2 mmol/L (3.6-5.0) 04/15/21 04:44 Chloride 96.9 mmol/L (98-107) L 04/15/21 04:44 Carbon Dioxide 38 mmol/L (22-30) H 04/15/21 04:44 Anion Gap 9 mmol/L 04/15/21 04:44 BUN 20 mg/dL (9-20) 04/15/21 04:44 Creatinine 0.4 mg/dL (0.8-1.3) L 04/15/21 04:44 Estimated GFR > 60 ml/min 04/15/21 04:44 BUN/Creatinine Ratio 50 % 04/15/21 04:44 Glucose 163 mg/dL (75-100) H 04/15/21 04:44 POC Glucose 179 mg/dL (70-105) H 04/15/21 11:35 Lactic Acid 1.90 mmol/L (0.7-2.0) 03/08/21 23:51 Calcium 9.7 mg/dL (8.4-10.2) 04/15/21 04:44 Phosphorus 2.90 mg/dL (2.5-4.5) 04/14/21 04:32 Magnesium 2.20 mg/dL (1.7-2.3) 04/14/21 04:32 Ferritin 976.4 ng/mL (30.0-300.0) H 03/15/21 04:00 Total Bilirubin 0.20 mg/dL (0.1-1.2) 03/12/21 08:03 AST 10 units/L (5-40) 03/12/21 08:03 ALT 16 units/L (7-56) 03/12/21 08:03 Alkaline Phosphatase 77 units/L (35-129) 03/12/21 08:03 Lactate Dehydrogenase 630 units/L (91-180) H 03/15/21 06:06 C-Reactive Protein 0.40 mg/dL (0.00-1.30) 03/17/21 04:40 NT-Pro-B Natriuret Pep 1053 pg/mL (0-900) H 03/08/21 20:24 Total Protein 6.0 g/dL (6.3-8.2) L 03/12/21 08:03 Albumin 2.9 g/dL (3.9-5) L 03/12/21 08:03 Albumin/Globulin Ratio 0.9 % 03/12/21 08:03 Triglycerides 305 mg/dL (2-149) H 03/22/21 07:26 Procalcitonin 0.17 ng/mL (<0.15) 04/01/21 07:16 Arterial Blood Glucose 306 mg/dL (65-95) H 03/12/21 21:54 Arterial Blood Ionized Calcium 5.0 mg/dL (4.6-5.3) 03/12/21 21:54 Urine Color Yellow (Yellow) 04/14/21 Unknown Urine Turbidity Clear (Clear) 04/14/21 Unknown Urine pH 8.0 (5.0-7.0) H 04/14/21 Unknown Ur Specific [place] 1.009 (1.003-1.030) 04/14/21 Unknown Urine Protein <15 mg/dl mg/dL (Negative) 04/14/21 Unknown Urine Glucose (UA) Neg mg/dL (Negative) 04/14/21 Unknown Urine Ketones Neg mg/dL (Negative) 04/14/21 Unknown Urine Blood Neg (Negative) 04/14/21 Unknown Urine Nitrite Neg (Negative) 04/14/21 Unknown Urine Bilirubin Neg (Negative) 04/14/21 Unknown Urine Urobilinogen 2.0 mg/dL (<2.0) 04/14/21 Unknown Ur Leukocyte Esterase Neg (Negative) 04/14/21 Unknown Urine WBC (Auto) < 1.0 /HPF (0.0-6.0) 04/14/21 Unknown Urine RBC (Auto) < 1.0 /HPF (0.0-6.0) 04/14/21 Unknown Urine Bacteria (Auto) 1+ /HPF (Negative) 03/09/21 04:10 Urine Mucus Few /HPF 03/09/21 04:10 Coronavirus (PCR) Positive (Negative) A 03/09/21 08:00 Miscellaneous Test Flexitest 1 03/16/21 13:14 Microbiology: Microbiology 04/14/21 08:26 Peripheral/Venous Blood Culture - Preliminary NO GROWTH AFTER 24 HOURS 04/14/21 08:26 Peripheral/Venous Blood Culture - Preliminary NO GROWTH AFTER 24 HOURS 04/14/21 08:17 Tracheal Aspirate Sputum Culture - Preliminary Good/IV: Voiding Method Indwelling Catheter Active Medications - Current Medications Current Medications: Generic Name Dose Route Start Last Admin Trade Name Freq PRN Reason Stop Dose Admin Acetaminophen 650 mg 03/09/21 01:26 04/14/21 09:41 Acetaminophen 325 Mg Tab PO 650 mg Q4H PRN Administration Pain MILD(1-3)/Fever >100.5/RAYO Albuterol 2.5 mg 03/09/21 01:26 03/18/21 21:06 Albuterol 2.5 Mg/3 Ml Nebu IH 2.5 mg Q4HRT PRN Administration Shortness Of Breath Amlodipine Besylate 10 mg 04/11/21 10:00 04/15/21 11:12 Amlodipine 5 Mg Tab PO 10 mg QDAY BLANCA Administration Apixaban 10 mg 04/11/21 22:00 04/15/21 11:12 Apixaban 5 Mg Tab PO 04/18/21 10:01 10 mg Q12HR BLANCA Administration Protocol Apixaban 5 mg 04/18/21 22:00 Apixaban 5 Mg Tab PO Q12HR BLANCA Protocol Arformoterol Tartrate 15 mcg 03/11/21 20:00 04/15/21 09:03 Arformoterol 15 Mcg/2 Ml Nebu IH 15 mcg Q12HRT BLANCA Administration Bisacodyl 10 mg 03/26/21 13:43 03/26/21 13:51 Bisacodyl 10 Mg Rect Supp OK 10 mg QDAY PRN Administration Constipation Budesonide 0.5 mg 04/06/21 20:00 04/15/21 09:03 Budesonide 0.5 Mg/2 Ml Nebu IH 0.5 mg Q12HRT BLANCA Administration Dextrose 0 ml 03/20/21 10:52 Dextrose 10% *Hypoglycemia IV PRN PRN Hypoglycemia Doxazosin Mesylate 1 mg 04/05/21 22:00 04/15/21 11:12 Doxazosin 1 Mg Tab PO 1 mg BID BLANCA Administration Famotidine 20 mg 03/12/21 22:00 04/15/21 11:11 Famotidine 20 Mg Tab FEEDTUBE 20 mg BID BLANCA Administration Fentanyl 50 mcg 04/14/21 11:00 04/14/21 21:37 Fentanyl 100 Mcg/2 Ml Inj IV 50 mcg Q2HR PRN Administration COPT greater than 3 Furosemide 20 mg 04/15/21 17:00 Furosemide 40 Mg/4 Ml Inj IV 04/15/21 17:01 ONCE ONE Hydralazine HCl 50 mg 03/23/21 14:26 04/15/21 05:36 Hydralazine 25 Mg Tab PO 50 mg Q8HR BLANCA Administration Cefepime HCl 2 gm in 100 mls @ 200 mls/hr 04/14/21 15:00 04/15/21 05:36 Cefepime/Ns 2 Gm/100 Ml IV 200 mls/hr Q8HR BLANCA Administration Protocol Insulin Glargine 18 units 04/07/21 22:00 04/14/21 21:40 Insulin Glargine 100 Units/Ml SUB-Q 18 units QHS BLANCA Administration Insulin Human Lispro 0 unit 03/11/21 18:00 04/15/21 06:29 Insulin Lispro 100 Unit/Ml SUB-Q 3 unit Q6HR BLANCA Administration Protocol Metolazone 2.5 mg 04/15/21 16:30 Metolazone 2.5 Mg Tab PO 04/15/21 16:31 ONCE ONE Metoprolol Tartrate 12.5 mg 03/21/21 22:00 04/15/21 11:18 Metoprolol Tartrate 25 Mg Tab PO 12.5 mg BID BLANCA Administration Ondansetron HCl 4 mg 03/09/21 01:26 04/13/21 16:17 Ondansetron 4 Mg/2 Ml Inj IV 4 mg Q8H PRN Administration Nausea And Vomiting Oxycodone HCl 5 mg 04/13/21 12:34 04/14/21 18:09 Oxycodone 5 Mg Tab PO 5 mg Q6HR PRN Administration Pain, Moderate (4-6) Phenyleph/Shark Oil/Min Oil/Petrol 1 applic 03/22/21 17:35 04/06/21 04:04 Pe/Mo/Pet,Wh 10 Applic/28 Gm Tube OK 1 applic Q6HR PRN Administration Hemorrhoids Polyethylene Glycol 17 gm 04/02/21 10:00 04/15/21 11:18 Polyethylene Glycol 3350 17 Gm Powder FEEDTUBE 17 gm QDAY BLANCA Administration Senna/Docusate Sodium 2 tab 04/02/21 10:00 04/15/21 11:18 Sennosides/Docusate Sodium 8.6/50 Mg Tab FEEDTUBE 2 tab BID BLANCA Administration Sodium Chloride 10 ml 03/09/21 10:00 04/15/21 11:21 Sodium Chloride 0.9% 10 Ml Flush Syringe IV 10 ml BID BLANCA Administration Sodium Chloride 10 ml 03/09/21 01:26 04/10/21 21:07 Sodium Chloride 0.9% 10 Ml Flush Syringe IV 10 ml PRN PRN Administration LINE FLUSH Sodium Chloride 10 ml 03/20/21 09:48 Sodium Chloride 0.9% 50 Ml Ivpb IV PRN PRN FLUSH Nutrition/Malnutrition Assess - Dietary Evaluation Nutrition/Malnutrition Findings: Nutrition Notes Start: 03/09/21 08:49 Freq: Status: Active Protocol: Document 04/14/21 14:43 BRIAN (Rec: 04/14/21 14:45 [facility] [id number]) Nutrition Notes Initial or Follow up Reassessment Current Diagnosis Diabetes,Sepsis,Hypertension, Respiratory Failure Other Pertinent Diagnosis COVID-19, Bilateral Pneumonia. Current Diet TF-Glucerna 1.2 at 70 ml/hr Labs/Tests reviewed Pertinent Medications reviewed Height 5 ft 11 in Weight 122.4 kg [place] Body Weight (kg) 78.18 BMI 37.6 Weight Status Obese Subjective/Other Information Pt remains on vent support. Spoke with RN via phone (14:18 ); pt continues to tolerate TF at goal rate. Percent of energy/protein needs met: 82% energy 78% pro Burn Absent Trauma Absent #1 Nutrition Diagnosis Inadequate oral intake Diagnosis Progress(for reassessment Continues documentation) Is patient on ventilator? Yes Is Patient Ambulatory and/or Out of Bed No REE-([facility]-confined to bed) 7850.770 Calculation Used for Recommendations 70-80% energy needs Additional Notes Energy needs: 7900-5474 kcal/ day Pro needs 1.3g/kg adjBW: 130g/ day Fluid needs 1ml/kcal Nutrition Intervention Nutrition Support: Continue Glucerna 1.2 at 70ml/ hr with 110ml water flush q4h. Kcal 2,016 Protein (gm) 101 Carbohydrates (gm) 192 Fat (gm) 101 Fluid (mL) 1,352 Fiber (gm) 27 Goal #1 TF tolerance Goal #2 TF to meet at least 75% energy and pro needs Follow-Up By: 04/21/21 Additional Comments F/U: stable TF, vent status, wt <ARABELLA CASTILLO E - Last Filed: 04/19/21 16:12> Assessment and Plan Assessment and plan: I saw and evaluated the patient. I agree with the findings and the plan of care as documented in the Nurse Practitioner's~note, with the following corrections and additions. Hospitalist Physical - Constitutional Vitals: Temp Pulse Resp BP Pulse Ox 98.7 F 89 29 H 115/64 98 04/19/21 12:00 04/19/21 14:30 04/19/21 14:30 04/19/21 14:30 04/19/21 14:30 Results - Labs CBC & Chem 7: 04/19/21 04:26 04/19/21 04:26 Labs: Laboratory Last Values WBC 13.6 K/mm3 (4.5-11.0) H 04/19/21 04:26 RBC 2.69 M/mm3 (3.65-5.03) L 04/19/21 04:26 Hgb 8.5 gm/dl (11.8-15.2) L 04/19/21 04:26 Hct 24.4 % (35.5-45.6) L 04/19/21 04:26 MCV 91 fl (84-94) 04/19/21 04:26 MCH 32 pg (28-32) 04/19/21 04:26 MCHC 35 % (32-34) H 04/19/21 04:26 RDW 15.9 % (13.2-15.2) H 04/19/21 04:26 Plt Count 362 K/mm3 (140-440) 04/19/21 04:26 Lymph % (Auto) 7.6 % (13.4-35.0) L 03/31/21 13:30 [place] % (Auto) 9.5 % (0.0-7.3) H 03/31/21 13:30 Eos % (Auto) 4.1 % (0.0-4.3) 03/31/21 13:30 Baso % (Auto) 0.5 % (0.0-1.8) 03/31/21 13:30 Lymph # (Auto) 0.6 K/mm3 (1.2-5.4) L 03/31/21 13:30 [place] # (Auto) 0.7 K/mm3 (0.0-0.8) 03/31/21 13:30 Eos # (Auto) 0.3 K/mm3 (0.0-0.4) 03/31/21 13:30 Baso # (Auto) 0.0 K/mm3 (0.0-0.1) 03/31/21 13:30 Add Manual Diff Complete 04/11/21 06:47 Total Counted 100 04/11/21 06:47 Seg Neutrophils % 78.3 % (40.0-70.0) H 03/31/21 13:30 Seg Neuts % (Manual) 76.0 % (40.0-70.0) H 04/11/21 06:47 Band Neutrophils % 2.0 % 04/11/21 06:47 Lymphocytes % (Manual) 10.0 % (13.4-35.0) L 04/11/21 06:47 Reactive Lymphs % (Man) 0 % 04/11/21 06:47 Monocytes % (Manual) 7.0 % (0.0-7.3) 04/11/21 06:47 Eosinophils % (Manual) 4.0 % (0.0-4.3) 04/11/21 06:47 Basophils % (Manual) 0 % (0.0-1.8) 04/11/21 06:47 Metamyelocytes % 1.0 % 04/11/21 06:47 Myelocytes % 0 % 04/11/21 06:47 Promyelocytes % 0 % 04/11/21 06:47 Blast Cells % 0 % 04/11/21 06:47 Nucleated RBC % Not Reportable 04/11/21 06:47 Seg Neutrophils # 5.8 K/mm3 (1.8-7.7) 03/31/21 13:30 Seg Neutrophils # Man 8.3 K/mm3 (1.8-7.7) H 04/11/21 06:47 Band Neutrophils # 0.2 K/mm3 04/11/21 06:47 Lymphocytes # (Manual) 1.1 K/mm3 (1.2-5.4) L 04/11/21 06:47 Abs React Lymphs (Man) 0.0 K/mm3 04/11/21 06:47 Monocytes # (Manual) 0.8 K/mm3 (0.0-0.8) 04/11/21 06:47 Eosinophils # (Manual) 0.4 K/mm3 (0.0-0.4) 04/11/21 06:47 Basophils # (Manual) 0.0 K/mm3 (0.0-0.1) 04/11/21 06:47 Metamyelocytes # 0.1 K/mm3 04/11/21 06:47 Myelocytes # 0.0 K/mm3 04/11/21 06:47 Promyelocytes # 0.0 K/mm3 04/11/21 06:47 Blast Cells # 0.0 K/mm3 04/11/21 06:47 WBC Morphology Not Reportable 04/11/21 06:47 Hypersegmented Neuts Not Reportable 04/11/21 06:47 Hyposegmented Neuts Not Reportable 04/11/21 06:47 Hypogranular Neuts Not Reportable 04/11/21 06:47 Smudge Cells Not Reportable 04/11/21 06:47 Toxic Granulation 1+ 04/11/21 06:47 Toxic Vacuolation Not Reportable 04/11/21 06:47 Dohle Bodies Not Reportable 04/11/21 06:47 Pelger-Huet Anomaly Not Reportable 04/11/21 06:47 Mely Rods Not Reportable 04/11/21 06:47 Platelet Estimate Consistent w auto 04/11/21 06:47 Clumped Platelets Not Reportable 04/11/21 06:47 Plt Clumps, EDTA Not Reportable 04/11/21 06:47 Large Platelets Not Reportable 04/11/21 06:47 Giant Platelets Not Reportable 04/11/21 06:47 Platelet Satelliting Not Reportable 04/11/21 06:47 Plt Morphology Comment Not Reportable 04/11/21 06:47 RBC Morphology Not Reportable 04/11/21 06:47 Dimorphic RBCs Not Reportable 04/11/21 06:47 Polychromasia Not Reportable 04/11/21 06:47 Hypochromasia Not Reportable 04/11/21 06:47 Poikilocytosis Not Reportable 04/11/21 06:47 Anisocytosis 1+ 04/11/21 06:47 Microcytosis Not Reportable 04/11/21 06:47 Macrocytosis Not Reportable 04/11/21 06:47 Spherocytes Not Reportable 04/11/21 06:47 Pappenheimer Bodies Not Reportable 04/11/21 06:47 Sickle Cells Not Reportable 04/11/21 06:47 Target Cells Not Reportable 04/11/21 06:47 Tear Drop Cells Not Reportable 04/11/21 06:47 Ovalocytes Not Reportable 04/11/21 06:47 Helmet Cells Not Reportable 04/11/21 06:47 [place] Hot[place] Bodies Not Reportable 04/11/21 06:47 [place] Rings Not Reportable 04/11/21 06:47 [place] Cells Not Reportable 04/11/21 06:47 Bite Cells Not Reportable 04/11/21 06:47 Crenated Cell Not Reportable 04/11/21 06:47 Elliptocytes Not Reportable 04/11/21 06:47 Acanthocytes (Spur) Not Reportable 04/11/21 06:47 Rouleaux Not Reportable 04/11/21 06:47 Hemoglobin C Crystals Not Reportable 04/11/21 06:47 Schistocytes Not Reportable 04/11/21 06:47 Malaria parasites Not Reportable 04/11/21 06:47 [place] Bodies Not Reportable 04/11/21 06:47 Hem Pathologist Commnt No 04/11/21 06:47 PT 13.4 Sec. (12.2-14.9) 04/11/21 18:17 INR 0.92 (0.87-1.13) 04/11/21 18:17 APTT 61.1 Sec. (24.2-36.6) H* 04/11/21 18:17 D-Dimer 1359.12 ng/mlDDU (0-234) H 03/17/21 04:40 Heparin Anti-Xa Level 1.03 U.I./ml (0.3-0.7) H 04/12/21 05:11 ABG pH 7.469 pH Units (7.350-7.450) H 04/18/21 11:30 POC ABG pCO2 57.4 mmHg (32.0-48.0) H 04/06/21 04:49 ABG pCO2 50.9 mm Hg 04/18/21 11:30 POC ABG pO2 55.1 mmHg (83-108) L 04/06/21 04:49 ABG pO2 108.9 mm Hg (80.0-90.0) H 04/18/21 11:30 POC ABG HCO3 36.2 04/06/21 04:49 ABG HCO3 36.2 mmol/L (20.0-26.0) H 04/18/21 11:30 ABG O2 Saturation 98.0 % (95.0-99.0) 04/18/21 11:30 ABG O2 Content 12.1 (0.0-44) 04/18/21 11:30 POC ABG Base Excess 10.0 04/06/21 04:49 ABG Base Excess 11.2 mmol/L (-2.0-3.0) H 04/18/21 11:30 ABG Hemoglobin 8.8 gm/dl (14.0-18.0) L 04/18/21 11:30 ABG Oxyhemoglobin 87.5 (94-98) L 04/06/21 04:49 ABG Carboxyhemoglobin 1.7 % (0.0-5.0) 04/18/21 11:30 ABG Methemoglobin 0.5 % (0.0-1.5) 04/18/21 11:30 ABG Sodium 134.2 mmol/L (136.0-145.0) L 03/12/21 21:54 ABG Potassium 4.9 mmol/L (3.40-4.50) H 03/12/21 21:54 ABG Chloride 99.0 mmol/L (98-107) 03/12/21 21:54 ABG Glucose 306 mg/dL (65-95) H 03/12/21 21:54 Oxyhemoglobin 95.9 % (95.0-99.0) 04/18/21 11:30 Carboxyhemoglobin 0.8 (0.5-1.5) 04/06/21 04:49 FiO2 40 % 04/18/21 11:30 FiO2 % 40.0 04/06/21 04:49 Sodium 137 mmol/L (137-145) 04/19/21 04:26 Potassium 3.7 mmol/L (3.6-5.0) 04/19/21 04:26 Chloride 99.6 mmol/L (98-107) 04/19/21 04:26 Carbon Dioxide 30 mmol/L (22-30) 04/19/21 04:26 Anion Gap 11 mmol/L 04/19/21 04:26 BUN 20 mg/dL (9-20) 04/19/21 04:26 Creatinine 0.3 mg/dL (0.8-1.3) L 04/19/21 04:26 Estimated GFR > 60 ml/min 04/19/21 04:26 BUN/Creatinine Ratio 67 % 04/19/21 04:26 Glucose 163 mg/dL (75-100) H 04/19/21 04:26 POC Glucose 138 mg/dL (70-105) H 04/19/21 15:55 Lactic Acid 1.90 mmol/L (0.7-2.0) 03/08/21 23:51 Calcium 8.9 mg/dL (8.4-10.2) 04/19/21 04:26 Phosphorus 3.60 mg/dL (2.5-4.5) 04/17/21 04:25 Magnesium 2.30 mg/dL (1.7-2.3) 04/19/21 04:26 Ferritin 976.4 ng/mL (30.0-300.0) H 03/15/21 04:00 Total Bilirubin 0.20 mg/dL (0.1-1.2) 03/12/21 08:03 AST 10 units/L (5-40) 03/12/21 08:03 ALT 16 units/L (7-56) 03/12/21 08:03 Alkaline Phosphatase 77 units/L (35-129) 03/12/21 08:03 Lactate Dehydrogenase 630 units/L (91-180) H 03/15/21 06:06 C-Reactive Protein 0.40 mg/dL (0.00-1.30) 03/17/21 04:40 NT-Pro-B Natriuret Pep 1053 pg/mL (0-900) H 03/08/21 20:24 Total Protein 6.0 g/dL (6.3-8.2) L 03/12/21 08:03 Albumin 2.9 g/dL (3.9-5) L 03/12/21 08:03 Albumin/Globulin Ratio 0.9 % 03/12/21 08:03 Triglycerides 305 mg/dL (2-149) H 03/22/21 07:26 Procalcitonin 0.19 ng/mL (<0.15) 04/18/21 04:20 Arterial Blood Glucose 306 mg/dL (65-95) H 03/12/21 21:54 Arterial Blood Ionized Calcium 5.0 mg/dL (4.6-5.3) 03/12/21 21:54 Urine Color Yellow (Yellow) 04/14/21 Unknown Urine Turbidity Clear (Clear) 04/14/21 Unknown Urine pH 8.0 (5.0-7.0) H 04/14/21 Unknown Ur Specific [place] 1.009 (1.003-1.030) 04/14/21 Unknown Urine Protein <15 mg/dl mg/dL (Negative) 04/14/21 Unknown Urine Glucose (UA) Neg mg/dL (Negative) 04/14/21 Unknown Urine Ketones Neg mg/dL (Negative) 04/14/21 Unknown Urine Blood Neg (Negative) 04/14/21 Unknown Urine Nitrite Neg (Negative) 04/14/21 Unknown Urine Bilirubin Neg (Negative) 04/14/21 Unknown Urine Urobilinogen 2.0 mg/dL (<2.0) 04/14/21 Unknown Ur Leukocyte Esterase Neg (Negative) 04/14/21 Unknown Urine WBC (Auto) < 1.0 /HPF (0.0-6.0) 04/14/21 Unknown Urine RBC (Auto) < 1.0 /HPF (0.0-6.0) 04/14/21 Unknown Urine Bacteria (Auto) 1+ /HPF (Negative) 03/09/21 04:10 Urine Mucus Few /HPF 03/09/21 04:10 Vancomycin Trough 16.8 ug/mL (5.0-20.0) 04/16/21 14:30 Coronavirus (PCR) Positive (Negative) A 03/09/21 08:00 Miscellaneous Test Flexitest 1 03/16/21 13:14 Microbiology: Microbiology 04/14/21 08:17 Tracheal Aspirate Sputum Culture - Final Staphylococcus Aureus 04/15/21 13:55 Bronchial Washings - Right Middle Lobe Respiratory Culture - Final Staphylococcus Aureus 04/14/21 08:26 Peripheral/Venous Blood Culture - Final NO GROWTH AFTER 5 DAYS 02/18/22 08:26 Peripheral/Venous Blood Culture - Final NO GROWTH AFTER 5 DAYS Good/IV: Voiding Method Condom Catheter Active Medications - Current Medications Current Medications: Generic Name Dose Route Start Last Admin Trade Name Freq PRN Reason Stop Dose Admin Acetaminophen 650 mg 03/09/21 01:26 04/18/21 00:48 Acetaminophen 325 Mg Tab PO 650 mg Q4H PRN Administration Pain MILD(1-3)/Fever >100.5/RAYO Albuterol 2.5 mg 03/09/21 01:26 03/18/21 21:06 Albuterol 2.5 Mg/3 Ml Nebu IH 2.5 mg Q4HRT PRN Administration Shortness Of Breath Amlodipine Besylate 10 mg 04/11/21 10:00 04/19/21 11:10 Amlodipine 5 Mg Tab PO 10 mg QDAY BLANCA Administration Apixaban 5 mg 04/18/21 22:00 04/19/21 11:15 Apixaban 5 Mg Tab PO 5 mg Q12HR BLANCA Administration Protocol Arformoterol Tartrate 15 mcg 03/11/21 20:00 04/19/21 08:44 Arformoterol 15 Mcg/2 Ml Nebu IH 15 mcg Q12HRT BLANCA Administration Bisacodyl 10 mg 03/26/21 13:43 03/26/21 13:51 Bisacodyl 10 Mg Rect Supp OK 10 mg QDAY PRN Administration Constipation Budesonide 0.5 mg 04/06/21 20:00 04/19/21 08:44 Budesonide 0.5 Mg/2 Ml Nebu IH 0.5 mg Q12HRT BLANCA Administration Dextrose 0 ml 03/20/21 10:52 Dextrose 10% *Hypoglycemia IV PRN PRN Hypoglycemia Doxazosin Mesylate 1 mg 04/05/21 22:00 04/19/21 11:13 Doxazosin 1 Mg Tab PO 1 mg BID BLANCA Administration Famotidine 20 mg 03/12/21 22:00 04/19/21 11:16 Famotidine 20 Mg Tab FEEDTUBE 20 mg BID BLANCA Administration Fentanyl 50 mcg 04/14/21 11:00 04/14/21 21:37 Fentanyl 100 Mcg/2 Ml Inj IV 50 mcg Q2HR PRN Administration COPT greater than 3 Glycopyrrolate 1 mg 04/19/21 14:00 04/19/21 13:42 Glycopyrrolate 1 Mg Tab PO 1 mg TID BLANCA Administration Hydralazine HCl 50 mg 03/23/21 14:26 04/19/21 13:41 Hydralazine 25 Mg Tab PO 50 mg Q8HR BLANCA Administration Cefepime HCl 2 gm in 100 mls @ 200 mls/hr 04/14/21 15:00 04/19/21 13:29 Cefepime/Ns 2 Gm/100 Ml IV 04/22/21 06:29 200 mls/hr Q8HR BLANCA Administration Protocol Vancomycin HCl 1,750 mg/ 535 mls @ 333 mls/hr 04/15/21 15:00 04/19/21 02:52 Sodium Chloride IV 04/21/21 16:37 333 mls/hr Q12H BLANCA Administration Protocol Insulin Glargine 18 units 04/07/21 22:00 04/18/21 21:30 Insulin Glargine 100 Units/Ml SUB-Q 18 units QHS BLANCA Administration Insulin Human Lispro 0 unit 03/11/21 18:00 04/19/21 12:12 Insulin Lispro 100 Unit/Ml SUB-Q 3 unit Q6HR BLANCA Administration Protocol Metoprolol Tartrate 12.5 mg 03/21/21 22:00 04/19/21 11:16 Metoprolol Tartrate 25 Mg Tab PO 12.5 mg BID BLANCA Administration Ondansetron HCl 4 mg 03/09/21 01:26 04/13/21 16:17 Ondansetron 4 Mg/2 Ml Inj IV 4 mg Q8H PRN Administration Nausea And Vomiting Oxycodone HCl 5 mg 04/13/21 12:34 04/14/21 18:09 Oxycodone 5 Mg Tab PO 5 mg Q6HR PRN Administration Pain, Moderate (4-6) Phenyleph/Shark Oil/Min Oil/Petrol 1 applic 03/22/21 17:35 04/06/21 04:04 Pe/Mo/Pet,Wh 10 Applic/28 Gm Tube OK 1 applic Q6HR PRN Administration Hemorrhoids Polyethylene Glycol 17 gm 04/02/21 10:00 04/19/21 11:16 Polyethylene Glycol 3350 17 Gm Powder FEEDTUBE 17 gm QDAY BLANCA Administration Scopolamine 1 each 04/19/21 13:00 04/19/21 13:41 Scopolamine Transdermal Patch 72 Hr TD 1 each Q3D BLANCA Administration Senna/Docusate Sodium 2 tab 04/02/21 10:00 04/19/21 11:17 Sennosides/Docusate Sodium 8.6/50 Mg Tab FEEDTUBE 2 tab BID BLANCA Administration Sodium Chloride 10 ml 03/09/21 10:00 04/19/21 11:17 Sodium Chloride 0.9% 10 Ml Flush Syringe IV 10 ml BID BLANCA Administration Sodium Chloride 10 ml 03/09/21 01:26 04/10/21 21:07 Sodium Chloride 0.9% 10 Ml Flush Syringe IV 10 ml PRN PRN Administration LINE FLUSH Sodium Chloride 10 ml 03/20/21 09:48 Sodium Chloride 0.9% 50 Ml Ivpb IV PRN PRN FLUSH Nutrition/Malnutrition Assess - Dietary Evaluation Nutrition/Malnutrition Findings: Nutrition Notes Start: 03/09/21 08:49 Freq: Status: Active Protocol: Document 04/14/21 14:43 [facility] (Rec: 04/14/21 14:45 NCALL [id number]) Nutrition Notes Initial or Follow up Reassessment Current Diagnosis Diabetes,Sepsis,Hypertension, Respiratory Failure Other Pertinent Diagnosis COVID-19, Bilateral Pneumonia. Current Diet TF-Glucerna 1.2 at 70 ml/hr Labs/Tests reviewed Pertinent Medications reviewed Height 5 ft 11 in Weight 122.4 kg [place] Body Weight (kg) 78.18 BMI 37.6 Weight Status Obese Subjective/Other Information Pt remains on vent support. Spoke with RN via phone (14:18 ); pt continues to tolerate TF at goal rate. Percent of energy/protein needs met: 82% energy 78% pro Burn Absent Trauma Absent #1 Nutrition Diagnosis Inadequate oral intake Diagnosis Progress(for reassessment Continues documentation) Is patient on ventilator? Yes Is Patient Ambulatory and/or Out of Bed No REE-([facility]-confined to bed) 7057.119 Calculation Used for Recommendations 70-80% energy needs Additional Notes Energy needs: 5590-3632 kcal/ day Pro needs 1.3g/kg adjBW: 130g/ day Fluid needs 1ml/kcal Nutrition Intervention Nutrition Support: Continue Glucerna 1.2 at 70ml/ hr with 110ml water flush q4h. Kcal 2,016 Protein (gm) 101 Carbohydrates (gm) 192 Fat (gm) 101 Fluid (mL) 1,352 Fiber (gm) 27 Goal #1 TF tolerance Goal #2 TF to meet at least 75% energy and pro needs Follow-Up By: 04/21/21 Additional Comments F/U: stable TF, vent status, wt
--- NOTE | 2021-04-15 14:02 | Progress Note ---
Assessment and Plan Acute hypoxemic respiratory failure, on MVS COVID-19 infection Bilateral pneumonia Obesity BMI 36 Hypertension Leukocytosis Possible venous thromboembolic phenomena with significantly elevated D-dimers DM II Elevated serum inflammatory markers to include CRP levels, ferritin and LDH Hyperkalemia Daily assessment to wean, daily SAT and SBT Trach care, airway clearance, secretion management Diuretics to keep him negative fluid balance- negative 1L today CXR, ABG Sputum cultures pending Trend temperature curve and WCC Antibiotics per ID service - VAP bundle addressed, aspiration precautions HOB>40 - continue to titrate supplemental oxygen to keep SpO2 88-90% - continue bronchodilators with pulmonary hygiene per RT - continue accuchecks with glycemic control per SSI (While critically ill target blood glucose of 140-180 mg/dL; avoid hypoglycemia) - avoid nephrotoxins, renally dose all medications - avoid benzodiazepines, reduce the possibility of delirium - sedation target for RASS -1 to -2 -Off Propofol and Fentanyl - prn analgesia per pain score - Maintenance of sleep-wake cycle, avoid delirium -Stress ulcer prophylaxis -Therapeutic anticoagulation- on Apixaban - mobility, off loading and frequent turning per facility protocol for pressure ulcer prevention - Monitor hemodynamics closely - continue other care per attending / other consultants COVID SPECIFIC INTERVENTIONS - s/p Remdesivir per ID/Pulmonary developed protocols - s/p systemic steroids for severe COVID-19 infection CONDITION: CRITICAL PROGNOSIS: GUARDED CODE STATUS: FULL CODE The high probability of a clinically significant, sudden or life-threatening deterioration of the respiratory, cardiovascular system(s) required my full and direct attention, intervention and personal management. The aggregate critical care time was [35] minutes without overlap. Time includes spent on; [x] Data Review and interpretation [x] Patient assessment and monitoring of vital signs [x] Documentation [x] Medication orders and management Subjective Date of service: 04/15/21 Principal diagnosis: COVID-19 infection; DM II; Bilateral pneumonia; Obesity; HTN Interval history: Patient is seen today for: Acute hypoxemic respiratory failure; COVID-19 infection; DM II; Bilateral pneumonia; Obesity; HTN Seen and examined at bedside; 24hour events reviewed; nursing and respiratory care staff consulted; no adverse overnight events reported to me; resting in bed; on MVS PEEP +8, FIO2 55 %; no emesis or overt aspiration Episode of fever this morning , on Apixaban, getting intermittent diuretic therapy. He is negative fluid balance 1L Remains encephalopathic Objective Vital Signs - 12hr 04/15/21 04/15/21 04/15/21 02:31 03:01 03:25 Temperature 100.8 F H Pulse Rate 107 H 111 H Pulse Rate [ Bilateral Throughout] Pulse Rate [ From Monitor] Respiratory 31 H 43 H Rate Respiratory Rate [Bilateral Throughout] Blood Pressure 137/71 138/82 O2 Sat by Pulse 97 96 Oximetry O2 Sat by Pulse Oximetry [ Assessment] 04/15/21 04/15/21 04/15/21 03:31 04:00 04:01 Temperature 100.8 F H Pulse Rate 111 H 106 H 108 H Pulse Rate [ Bilateral Throughout] Pulse Rate [ 102 H From Monitor] Respiratory 38 H 35 H 44 H Rate Respiratory Rate [Bilateral Throughout] Blood Pressure 146/76 147/76 O2 Sat by Pulse 97 97 97 Oximetry O2 Sat by Pulse Oximetry [ Assessment] 04/15/21 04/15/21 04/15/21 04:31 05:01 05:31 Temperature Pulse Rate 110 H 111 H 110 H Pulse Rate [ Bilateral Throughout] Pulse Rate [ From Monitor] Respiratory 44 H 40 H 40 H Rate Respiratory Rate [Bilateral Throughout] Blood Pressure 147/76 142/76 142/76 O2 Sat by Pulse 97 97 97 Oximetry O2 Sat by Pulse Oximetry [ Assessment] 04/15/21 04/15/21 04/15/21 05:36 06:01 06:03 Temperature Pulse Rate 107 H 108 H 111 H Pulse Rate [ Bilateral Throughout] Pulse Rate [ From Monitor] Respiratory 40 H Rate Respiratory Rate [Bilateral Throughout] Blood Pressure 142/76 141/80 141/80 O2 Sat by Pulse 98 97 Oximetry O2 Sat by Pulse Oximetry [ Assessment] 04/15/21 04/15/21 04/15/21 08:00 08:30 11:12 Temperature 100.4 F H Pulse Rate 113 H 106 H Pulse Rate [ 104 H Bilateral Throughout] Pulse Rate [ From Monitor] Respiratory Rate Respiratory 40 H Rate [Bilateral Throughout] Blood Pressure 144/70 142/70 O2 Sat by Pulse 97 99 Oximetry O2 Sat by Pulse 97 Oximetry [ Assessment] 04/15/21 04/15/21 11:18 12:00 Temperature Pulse Rate 106 H 99 H Pulse Rate [ Bilateral Throughout] Pulse Rate [ From Monitor] Respiratory Rate Respiratory Rate [Bilateral Throughout] Blood Pressure 142/70 1401/73 O2 Sat by Pulse 95 Oximetry O2 Sat by Pulse Oximetry [ Assessment] Constitutional: no acute distress, other (elderly obese male with mildly increased respiratory effort at rest) Eyes: non-icteric, other (subconjunctival hemorrhage) ENT: oropharynx moist, other (+ midline tracheostomy) Neck: supple, no lymphadenopathy, no JVD, other (large circumference) Effort: mildly labored Ascultation: Bilateral: diminished breath sounds, rales, rhonchi Percussion: Bilateral: not dull Cardiovascular: regular rate and rhythm, other (tachycardia, S1,S2) Gastrointestinal: normoactive bowel sounds, soft, non-tender, non-distended (protuberant), other (Good in place) Integumentary: normal Extremities: no cyanosis, pulses normal, no ischemia or petechiae, edema (upper extremities), other Neurologic: pupils equal and round, other (sedated) Psychiatric: other (unable to assess re: AMS) CBC and BMP: 04/17/21 04:25 04/17/21 04:25 ABG, PT/INR, D-dimer: ABG ABG pH 7.365 pH Units (7.350-7.450) 04/12/21 09:45 POC ABG pCO2 57.4 mmHg (32.0-48.0) H 04/06/21 04:49 ABG pCO2 73.4 mm Hg 04/12/21 09:45 POC ABG pO2 55.1 mmHg (83-108) L 04/06/21 04:49 ABG pO2 70.8 mm Hg (80.0-90.0) L 04/12/21 09:45 POC ABG HCO3 36.2 04/06/21 04:49 ABG O2 Saturation 96.3 % (95.0-99.0) 04/12/21 09:45 PT/INR, D-dimer PT 13.4 Sec. (12.2-14.9) 04/11/21 18:17 INR 0.92 (0.87-1.13) 04/11/21 18:17 D-Dimer 1359.12 ng/mlDDU (0-234) H 03/17/21 04:40 Abnormal lab findings: Abnormal Labs 03/08/21 03/08/21 03/08/21 20:24 20:24 20:24 WBC 22.6 H RBC 5.44 H Hgb 15.7 H Hct 49.2 H MCV MCHC RDW Plt Count Lymph % (Auto) [place] % (Auto) Lymph # (Auto) [place] # (Auto) Seg Neutrophils % Seg Neuts % (Manual) 83.0 H Lymphocytes % (Manual) 9.0 L Monocytes % (Manual) 8.0 H Nucleated RBC % Seg Neutrophils # Seg Neutrophils # Man 18.8 H Lymphocytes # (Manual) Monocytes # (Manual) 1.8 H PT 16.1 H INR 1.17 H APTT D-Dimer > 42346 H Heparin Anti-Xa Level ABG pH POC ABG pCO2 POC ABG pO2 ABG pO2 ABG HCO3 ABG O2 Saturation ABG Base Excess ABG Hemoglobin ABG Oxyhemoglobin ABG Sodium ABG Potassium ABG Glucose Oxyhemoglobin Sodium 136 L Potassium Chloride 93.9 L Carbon Dioxide BUN 29 H Creatinine Glucose 208 H POC Glucose Lactic Acid Calcium Phosphorus Magnesium Ferritin Lactate Dehydrogenase 624 H C-Reactive Protein 18.00 H NT-Pro-B Natriuret Pep 1053 H Total Protein Albumin Triglycerides Arterial Blood Glucose Urine pH Ur Specific [place] Coronavirus (PCR) 03/08/21 03/08/21 03/09/21 20:24 20:24 04:10 WBC RBC Hgb Hct MCV MCHC RDW Plt Count Lymph % (Auto) [place] % (Auto) Lymph # (Auto) [place] # (Auto) Seg Neutrophils % Seg Neuts % (Manual) Lymphocytes % (Manual) Monocytes % (Manual) Nucleated RBC % Seg Neutrophils # Seg Neutrophils # Man Lymphocytes # (Manual) Monocytes # (Manual) PT INR APTT D-Dimer Heparin Anti-Xa Level ABG pH POC ABG pCO2 POC ABG pO2 ABG pO2 ABG HCO3 ABG O2 Saturation ABG Base Excess ABG Hemoglobin ABG Oxyhemoglobin ABG Sodium ABG Potassium ABG Glucose Oxyhemoglobin Sodium Potassium Chloride Carbon Dioxide BUN Creatinine Glucose POC Glucose Lactic Acid 2.10 H* Calcium Phosphorus Magnesium Ferritin 877.5 H Lactate Dehydrogenase C-Reactive Protein NT-Pro-B Natriuret Pep Total Protein Albumin Triglycerides Arterial Blood Glucose Urine pH Ur Specific [place] 1.041 H Coronavirus (PCR) 03/09/21 03/09/21 03/09/21 07:46 08:00 13:01 WBC RBC Hgb Hct MCV MCHC RDW Plt Count Lymph % (Auto) [place] % (Auto) Lymph # (Auto) [place] # (Auto) Seg Neutrophils % Seg Neuts % (Manual) Lymphocytes % (Manual) Monocytes % (Manual) Nucleated RBC % Seg Neutrophils # Seg Neutrophils # Man Lymphocytes # (Manual) Monocytes # (Manual) PT INR APTT D-Dimer Heparin Anti-Xa Level ABG pH POC ABG pCO2 POC ABG pO2 ABG pO2 ABG HCO3 ABG O2 Saturation ABG Base Excess ABG Hemoglobin ABG Oxyhemoglobin ABG Sodium ABG Potassium ABG Glucose Oxyhemoglobin Sodium Potassium Chloride Carbon Dioxide BUN Creatinine Glucose POC Glucose 191 H 182 H Lactic Acid Calcium Phosphorus Magnesium Ferritin Lactate Dehydrogenase C-Reactive Protein NT-Pro-B Natriuret Pep Total Protein Albumin Triglycerides Arterial Blood Glucose Urine pH Ur Specific [place] Coronavirus (PCR) Positive A 03/09/21 03/09/21 03/09/21 15:19 17:48 18:10 WBC RBC Hgb Hct MCV MCHC RDW Plt Count Lymph % (Auto) [place] % (Auto) Lymph # (Auto) [place] # (Auto) Seg Neutrophils % Seg Neuts % (Manual) Lymphocytes % (Manual) Monocytes % (Manual) Nucleated RBC % Seg Neutrophils # Seg Neutrophils # Man Lymphocytes # (Manual) Monocytes # (Manual) PT INR APTT D-Dimer Heparin Anti-Xa Level ABG pH POC ABG pCO2 POC ABG pO2 ABG pO2 47.3 L ABG HCO3 26.3 H ABG O2 Saturation 83.7 L ABG Base Excess ABG Hemoglobin ABG Oxyhemoglobin ABG Sodium ABG Potassium ABG Glucose Oxyhemoglobin 82.1 L Sodium Potassium Chloride Carbon Dioxide BUN 29 H Creatinine Glucose 214 H POC Glucose 194 H Lactic Acid Calcium Phosphorus Magnesium Ferritin Lactate Dehydrogenase C-Reactive Protein NT-Pro-B Natriuret Pep Total Protein Albumin 3.4 L Triglycerides Arterial Blood Glucose Urine pH Ur Specific [place] Coronavirus (PCR) 03/09/21 03/10/21 03/10/21 20:40 04:29 04:29 WBC 20.6 H RBC 5.07 H Hgb Hct 46.2 H MCV MCHC RDW Plt Count Lymph % (Auto) [place] % (Auto) Lymph # (Auto) [place] # (Auto) Seg Neutrophils % Seg Neuts % (Manual) 94.0 H Lymphocytes % (Manual) 1.0 L Monocytes % (Manual) Nucleated RBC % 3.0 H Seg Neutrophils # Seg Neutrophils # Man 19.4 H Lymphocytes # (Manual) 0.2 L Monocytes # (Manual) 1.0 H PT INR APTT D-Dimer Heparin Anti-Xa Level ABG pH POC ABG pCO2 POC ABG pO2 ABG pO2 ABG HCO3 ABG O2 Saturation ABG Base Excess ABG Hemoglobin ABG Oxyhemoglobin ABG Sodium ABG Potassium ABG Glucose Oxyhemoglobin Sodium Potassium Chloride Carbon Dioxide BUN 29 H Creatinine Glucose 188 H POC Glucose 176 H Lactic Acid Calcium Phosphorus Magnesium Ferritin Lactate Dehydrogenase C-Reactive Protein NT-Pro-B Natriuret Pep Total Protein Albumin 3.3 L Triglycerides Arterial Blood Glucose Urine pH Ur Specific [place] Coronavirus (PCR) 03/10/21 03/10/21 03/10/21 05:22 10:27 15:25 WBC RBC Hgb Hct MCV MCHC RDW Plt Count Lymph % (Auto) [place] % (Auto) Lymph # (Auto) [place] # (Auto) Seg Neutrophils % Seg Neuts % (Manual) Lymphocytes % (Manual) Monocytes % (Manual) Nucleated RBC % Seg Neutrophils # Seg Neutrophils # Man Lymphocytes # (Manual) Monocytes # (Manual) PT INR APTT D-Dimer Heparin Anti-Xa Level ABG pH 7.488 H 7.488 H POC ABG pCO2 POC ABG pO2 ABG pO2 47.7 L 50.5 L ABG HCO3 ABG O2 Saturation 86.2 L 87.9 L ABG Base Excess ABG Hemoglobin ABG Oxyhemoglobin ABG Sodium ABG Potassium ABG Glucose Oxyhemoglobin 84.6 L 86.2 L Sodium Potassium Chloride Carbon Dioxide BUN Creatinine Glucose POC Glucose 155 H Lactic Acid Calcium Phosphorus Magnesium Ferritin Lactate Dehydrogenase C-Reactive Protein NT-Pro-B Natriuret Pep Total Protein Albumin Triglycerides Arterial Blood Glucose Urine pH Ur Specific [place] Coronavirus (PCR) 03/10/21 03/10/21 03/11/21 18:10 18:55 00:07 WBC RBC Hgb Hct MCV MCHC RDW Plt Count Lymph % (Auto) [place] % (Auto) Lymph # (Auto) [place] # (Auto) Seg Neutrophils % Seg Neuts % (Manual) Lymphocytes % (Manual) Monocytes % (Manual) Nucleated RBC % Seg Neutrophils # Seg Neutrophils # Man Lymphocytes # (Manual) Monocytes # (Manual) PT INR APTT D-Dimer Heparin Anti-Xa Level ABG pH 7.343 L POC ABG pCO2 POC ABG pO2 ABG pO2 60.4 L ABG HCO3 27.9 H ABG O2 Saturation 88.7 L ABG Base Excess ABG Hemoglobin ABG Oxyhemoglobin ABG Sodium ABG Potassium ABG Glucose Oxyhemoglobin 86.9 L Sodium Potassium Chloride Carbon Dioxide BUN Creatinine Glucose POC Glucose 187 H 139 H Lactic Acid Calcium Phosphorus Magnesium Ferritin Lactate Dehydrogenase C-Reactive Protein NT-Pro-B Natriuret Pep Total Protein Albumin Triglycerides Arterial Blood Glucose Urine pH Ur Specific [place] Coronavirus (PCR) 03/11/21 03/11/21 03/11/21 02:09 04:28 08:06 WBC RBC Hgb Hct MCV MCHC RDW Plt Count Lymph % (Auto) [place] % (Auto) Lymph # (Auto) [place] # (Auto) Seg Neutrophils % Seg Neuts % (Manual) Lymphocytes % (Manual) Monocytes % (Manual) Nucleated RBC % Seg Neutrophils # Seg Neutrophils # Man Lymphocytes # (Manual) Monocytes # (Manual) PT INR APTT D-Dimer Heparin Anti-Xa Level ABG pH 7.277 L POC ABG pCO2 55.9 H POC ABG pO2 54.4 L ABG pO2 ABG HCO3 ABG O2 Saturation ABG Base Excess ABG Hemoglobin ABG Oxyhemoglobin 83.0 L ABG Sodium ABG Potassium 4.8 H ABG Glucose 180 H Oxyhemoglobin Sodium Potassium Chloride Carbon Dioxide BUN 38 H Creatinine Glucose 249 H POC Glucose 278 H Lactic Acid Calcium Phosphorus Magnesium Ferritin Lactate Dehydrogenase C-Reactive Protein NT-Pro-B Natriuret Pep Total Protein Albumin 3.2 L Triglycerides Arterial Blood Glucose 180 H Urine pH Ur Specific [place] Coronavirus (PCR) 03/11/21 03/11/21 03/11/21 11:29 15:06 15:48 WBC RBC Hgb Hct MCV MCHC RDW Plt Count Lymph % (Auto) [place] % (Auto) Lymph # (Auto) [place] # (Auto) Seg Neutrophils % Seg Neuts % (Manual) Lymphocytes % (Manual) Monocytes % (Manual) Nucleated RBC % Seg Neutrophils # Seg Neutrophils # Man Lymphocytes # (Manual) Monocytes # (Manual) PT INR APTT D-Dimer Heparin Anti-Xa Level ABG pH 7.260 L POC ABG pCO2 POC ABG pO2 ABG pO2 53.5 L ABG HCO3 29.5 H ABG O2 Saturation 84.0 L ABG Base Excess ABG Hemoglobin ABG Oxyhemoglobin ABG Sodium ABG Potassium ABG Glucose Oxyhemoglobin 82.3 L Sodium Potassium Chloride Carbon Dioxide BUN Creatinine Glucose POC Glucose 288 H 295 H Lactic Acid Calcium Phosphorus Magnesium Ferritin Lactate Dehydrogenase C-Reactive Protein NT-Pro-B Natriuret Pep Total Protein Albumin Triglycerides Arterial Blood Glucose Urine pH Ur Specific [place] Coronavirus (PCR) 03/12/21 03/12/21 03/12/21 00:01 05:24 08:03 WBC RBC Hgb Hct MCV MCHC RDW Plt Count Lymph % (Auto) [place] % (Auto) Lymph # (Auto) [place] # (Auto) Seg Neutrophils % Seg Neuts % (Manual) Lymphocytes % (Manual) Monocytes % (Manual) Nucleated RBC % Seg Neutrophils # Seg Neutrophils # Man Lymphocytes # (Manual) Monocytes # (Manual) PT INR APTT D-Dimer Heparin Anti-Xa Level ABG pH POC ABG pCO2 POC ABG pO2 ABG pO2 ABG HCO3 ABG O2 Saturation ABG Base Excess ABG Hemoglobin ABG Oxyhemoglobin ABG Sodium ABG Potassium ABG Glucose Oxyhemoglobin Sodium 135 L Potassium Chloride Carbon Dioxide BUN 48 H Creatinine Glucose 358 H POC Glucose 304 H 310 H Lactic Acid Calcium Phosphorus Magnesium Ferritin Lactate Dehydrogenase C-Reactive Protein NT-Pro-B Natriuret Pep Total Protein 6.0 L Albumin 2.9 L Triglycerides Arterial Blood Glucose Urine pH Ur Specific [place] Coronavirus (PCR) 03/12/21 03/12/21 03/12/21 08:03 10:43 11:31 WBC 14.6 H RBC Hgb Hct MCV MCHC RDW Plt Count Lymph % (Auto) [place] % (Auto) Lymph # (Auto) [place] # (Auto) Seg Neutrophils % Seg Neuts % (Manual) Lymphocytes % (Manual) Monocytes % (Manual) Nucleated RBC % Seg Neutrophils # Seg Neutrophils # Man Lymphocytes # (Manual) Monocytes # (Manual) PT INR APTT D-Dimer Heparin Anti-Xa Level ABG pH 7.248 L POC ABG pCO2 POC ABG pO2 ABG pO2 73.7 L ABG HCO3 32.0 H ABG O2 Saturation 93.9 L ABG Base Excess ABG Hemoglobin ABG Oxyhemoglobin ABG Sodium ABG Potassium ABG Glucose Oxyhemoglobin 92.1 L Sodium Potassium Chloride Carbon Dioxide BUN Creatinine Glucose POC Glucose 359 H Lactic Acid Calcium Phosphorus Magnesium Ferritin Lactate Dehydrogenase C-Reactive Protein NT-Pro-B Natriuret Pep Total Protein Albumin Triglycerides Arterial Blood Glucose Urine pH Ur Specific [place] Coronavirus (PCR) 03/12/21 03/12/21 03/13/21 17:20 21:54 00:02 WBC RBC Hgb Hct MCV MCHC RDW Plt Count Lymph % (Auto) [place] % (Auto) Lymph # (Auto) [place] # (Auto) Seg Neutrophils % Seg Neuts % (Manual) Lymphocytes % (Manual) Monocytes % (Manual) Nucleated RBC % Seg Neutrophils # Seg Neutrophils # Man Lymphocytes # (Manual) Monocytes # (Manual) PT INR APTT D-Dimer Heparin Anti-Xa Level ABG pH 7.238 L POC ABG pCO2 71.9 H POC ABG pO2 53.6 L ABG pO2 ABG HCO3 ABG O2 Saturation ABG Base Excess ABG Hemoglobin ABG Oxyhemoglobin 84.8 L ABG Sodium 134.2 L ABG Potassium 4.9 H ABG Glucose 306 H Oxyhemoglobin Sodium Potassium Chloride Carbon Dioxide BUN Creatinine Glucose POC Glucose 374 H 308 H Lactic Acid Calcium Phosphorus Magnesium Ferritin Lactate Dehydrogenase C-Reactive Protein NT-Pro-B Natriuret Pep Total Protein Albumin Triglycerides Arterial Blood Glucose 306 H Urine pH Ur Specific [place] Coronavirus (PCR) 03/13/21 03/13/21 03/13/21 05:22 05:44 05:44 WBC 13.9 H RBC Hgb Hct MCV MCHC RDW Plt Count Lymph % (Auto) [place] % (Auto) Lymph # (Auto) [place] # (Auto) Seg Neutrophils % Seg Neuts % (Manual) Lymphocytes % (Manual) Monocytes % (Manual) Nucleated RBC % Seg Neutrophils # Seg Neutrophils # Man Lymphocytes # (Manual) Monocytes # (Manual) PT INR APTT D-Dimer 3567.97 H Heparin Anti-Xa Level ABG pH POC ABG pCO2 POC ABG pO2 ABG pO2 ABG HCO3 ABG O2 Saturation ABG Base Excess ABG Hemoglobin ABG Oxyhemoglobin ABG Sodium ABG Potassium ABG Glucose Oxyhemoglobin Sodium Potassium Chloride Carbon Dioxide BUN Creatinine Glucose POC Glucose 316 H Lactic Acid Calcium Phosphorus Magnesium Ferritin Lactate Dehydrogenase C-Reactive Protein NT-Pro-B Natriuret Pep Total Protein Albumin Triglycerides Arterial Blood Glucose Urine pH Ur Specific [place] Coronavirus (PCR) 03/13/21 03/13/21 03/13/21 05:44 05:44 11:15 WBC RBC Hgb Hct MCV MCHC RDW Plt Count Lymph % (Auto) [place] % (Auto) Lymph # (Auto) [place] # (Auto) Seg Neutrophils % Seg Neuts % (Manual) Lymphocytes % (Manual) Monocytes % (Manual) Nucleated RBC % Seg Neutrophils # Seg Neutrophils # Man Lymphocytes # (Manual) Monocytes # (Manual) PT INR APTT D-Dimer Heparin Anti-Xa Level ABG pH 7.310 L POC ABG pCO2 POC ABG pO2 ABG pO2 52.3 L ABG HCO3 34.1 H ABG O2 Saturation 86.8 L ABG Base Excess 5.5 H ABG Hemoglobin 13.8 L ABG Oxyhemoglobin ABG Sodium ABG Potassium ABG Glucose Oxyhemoglobin 85.1 L Sodium Potassium Chloride Carbon Dioxide BUN Creatinine Glucose POC Glucose Lactic Acid Calcium Phosphorus Magnesium Ferritin 858.7 H Lactate Dehydrogenase 348 H C-Reactive Protein 2.80 H NT-Pro-B Natriuret Pep Total Protein Albumin Triglycerides Arterial Blood Glucose Urine pH Ur Specific [place] Coronavirus (PCR) 03/13/21 03/13/21 03/13/21 11:21 15:47 19:23 WBC RBC Hgb Hct MCV MCHC RDW Plt Count Lymph % (Auto) [place] % (Auto) Lymph # (Auto) [place] # (Auto) Seg Neutrophils % Seg Neuts % (Manual) Lymphocytes % (Manual) Monocytes % (Manual) Nucleated RBC % Seg Neutrophils # Seg Neutrophils # Man Lymphocytes # (Manual) Monocytes # (Manual) PT INR APTT D-Dimer Heparin Anti-Xa Level ABG pH POC ABG pCO2 POC ABG pO2 ABG pO2 ABG HCO3 ABG O2 Saturation ABG Base Excess ABG Hemoglobin ABG Oxyhemoglobin ABG Sodium ABG Potassium ABG Glucose Oxyhemoglobin Sodium 136 L Potassium 5.9 H Chloride Carbon Dioxide BUN 50 H Creatinine Glucose 397 H POC Glucose 322 H 317 H Lactic Acid Calcium Phosphorus Magnesium Ferritin Lactate Dehydrogenase C-Reactive Protein NT-Pro-B Natriuret Pep Total Protein Albumin Triglycerides Arterial Blood Glucose Urine pH Ur Specific [place] Coronavirus (PCR) 03/13/21 03/14/21 03/14/21 23:46 05:32 05:50 WBC 11.6 H RBC Hgb Hct MCV MCHC RDW Plt Count Lymph % (Auto) [place] % (Auto) Lymph # (Auto) [place] # (Auto) Seg Neutrophils % Seg Neuts % (Manual) Lymphocytes % (Manual) Monocytes % (Manual) Nucleated RBC % Seg Neutrophils # Seg Neutrophils # Man Lymphocytes # (Manual) Monocytes # (Manual) PT INR APTT D-Dimer Heparin Anti-Xa Level ABG pH POC ABG pCO2 POC ABG pO2 ABG pO2 ABG HCO3 ABG O2 Saturation ABG Base Excess ABG Hemoglobin ABG Oxyhemoglobin ABG Sodium ABG Potassium ABG Glucose Oxyhemoglobin Sodium Potassium Chloride Carbon Dioxide BUN Creatinine Glucose POC Glucose 332 H 316 H Lactic Acid Calcium Phosphorus Magnesium Ferritin Lactate Dehydrogenase C-Reactive Protein NT-Pro-B Natriuret Pep Total Protein Albumin Triglycerides Arterial Blood Glucose Urine pH Ur Specific [place] Coronavirus (PCR) 03/14/21 03/14/21 03/14/21 05:50 11:33 16:53 WBC RBC Hgb Hct MCV MCHC RDW Plt Count Lymph % (Auto) [place] % (Auto) Lymph # (Auto) [place] # (Auto) Seg Neutrophils % Seg Neuts % (Manual) Lymphocytes % (Manual) Monocytes % (Manual) Nucleated RBC % Seg Neutrophils # Seg Neutrophils # Man Lymphocytes # (Manual) Monocytes # (Manual) PT INR APTT D-Dimer Heparin Anti-Xa Level ABG pH POC ABG pCO2 POC ABG pO2 ABG pO2 ABG HCO3 ABG O2 Saturation ABG Base Excess ABG Hemoglobin ABG Oxyhemoglobin ABG Sodium ABG Potassium ABG Glucose Oxyhemoglobin Sodium Potassium 5.9 H Chloride Carbon Dioxide 31 H BUN 48 H Creatinine Glucose 380 H POC Glucose 315 H 235 H Lactic Acid Calcium Phosphorus Magnesium 3.40 H Ferritin Lactate Dehydrogenase C-Reactive Protein NT-Pro-B Natriuret Pep Total Protein Albumin Triglycerides Arterial Blood Glucose Urine pH Ur Specific [place] Coronavirus (PCR) 03/14/21 03/14/21 03/15/21 18:34 23:27 01:22 WBC RBC Hgb Hct 46.3 H MCV MCHC RDW Plt Count Lymph % (Auto) [place] % (Auto) Lymph # (Auto) [place] # (Auto) Seg Neutrophils % Seg Neuts % (Manual) Lymphocytes % (Manual) Monocytes % (Manual) Nucleated RBC % Seg Neutrophils # Seg Neutrophils # Man Lymphocytes # (Manual) Monocytes # (Manual) PT INR APTT D-Dimer Heparin Anti-Xa Level ABG pH POC ABG pCO2 POC ABG pO2 ABG pO2 ABG HCO3 ABG O2 Saturation ABG Base Excess ABG Hemoglobin ABG Oxyhemoglobin ABG Sodium ABG Potassium ABG Glucose Oxyhemoglobin Sodium 146 H Potassium Chloride Carbon Dioxide 34 H BUN 49 H Creatinine Glucose 285 H POC Glucose 203 H Lactic Acid Calcium Phosphorus Magnesium Ferritin Lactate Dehydrogenase C-Reactive Protein NT-Pro-B Natriuret Pep Total Protein Albumin Triglycerides Arterial Blood Glucose Urine pH Ur Specific [place] Coronavirus (PCR) 03/15/21 03/15/21 03/15/21 04:00 06:06 06:06 WBC RBC Hgb Hct MCV MCHC RDW Plt Count Lymph % (Auto) [place] % (Auto) Lymph # (Auto) [place] # (Auto) Seg Neutrophils % Seg Neuts % (Manual) Lymphocytes % (Manual) Monocytes % (Manual) Nucleated RBC % Seg Neutrophils # Seg Neutrophils # Man Lymphocytes # (Manual) Monocytes # (Manual) PT INR APTT D-Dimer 1781.79 H Heparin Anti-Xa Level ABG pH POC ABG pCO2 POC ABG pO2 ABG pO2 ABG HCO3 ABG O2 Saturation ABG Base Excess ABG Hemoglobin ABG Oxyhemoglobin ABG Sodium ABG Potassium ABG Glucose Oxyhemoglobin Sodium 148 H Potassium 5.7 H D Chloride 108.0 H Carbon Dioxide 31 H BUN 46 H Creatinine Glucose 139 H POC Glucose Lactic Acid Calcium Phosphorus 4.80 H D Magnesium 3.00 H Ferritin 976.4 H Lactate Dehydrogenase 630 H C-Reactive Protein NT-Pro-B Natriuret Pep Total Protein Albumin Triglycerides Arterial Blood Glucose Urine pH Ur Specific [place] Coronavirus (PCR) 03/15/21 03/15/21 03/15/21 11:56 14:05 17:09 WBC RBC Hgb Hct MCV MCHC RDW Plt Count Lymph % (Auto) [place] % (Auto) Lymph # (Auto) [place] # (Auto) Seg Neutrophils % Seg Neuts % (Manual) Lymphocytes % (Manual) Monocytes % (Manual) Nucleated RBC % Seg Neutrophils # Seg Neutrophils # Man Lymphocytes # (Manual) Monocytes # (Manual) PT INR APTT D-Dimer Heparin Anti-Xa Level ABG pH POC ABG pCO2 POC ABG pO2 ABG pO2 52.1 L ABG HCO3 36.6 H ABG O2 Saturation 87.6 L ABG Base Excess 9.5 H ABG Hemoglobin ABG Oxyhemoglobin ABG Sodium ABG Potassium ABG Glucose Oxyhemoglobin 85.7 L Sodium Potassium Chloride Carbon Dioxide BUN Creatinine Glucose POC Glucose 219 H 263 H Lactic Acid Calcium Phosphorus Magnesium Ferritin Lactate Dehydrogenase C-Reactive Protein NT-Pro-B Natriuret Pep Total Protein Albumin Triglycerides Arterial Blood Glucose Urine pH Ur Specific [place] Coronavirus (PCR) 03/16/21 03/16/21 03/16/21 00:32 04:11 04:11 WBC 11.9 H RBC Hgb Hct MCV MCHC 30 L RDW Plt Count Lymph % (Auto) [place] % (Auto) Lymph # (Auto) [place] # (Auto) Seg Neutrophils % Seg Neuts % (Manual) Lymphocytes % (Manual) Monocytes % (Manual) Nucleated RBC % Seg Neutrophils # Seg Neutrophils # Man Lymphocytes # (Manual) Monocytes # (Manual) PT INR APTT D-Dimer Heparin Anti-Xa Level ABG pH POC ABG pCO2 POC ABG pO2 ABG pO2 ABG HCO3 ABG O2 Saturation ABG Base Excess ABG Hemoglobin ABG Oxyhemoglobin ABG Sodium ABG Potassium ABG Glucose Oxyhemoglobin Sodium 151 H Potassium Chloride Carbon Dioxide 35 H BUN 48 H Creatinine Glucose 152 H POC Glucose 165 H Lactic Acid Calcium Phosphorus Magnesium Ferritin Lactate Dehydrogenase C-Reactive Protein NT-Pro-B Natriuret Pep Total Protein Albumin Triglycerides Arterial Blood Glucose Urine pH Ur Specific [place] Coronavirus (PCR) 03/16/21 03/16/21 03/16/21 04:11 05:26 11:35 WBC RBC Hgb Hct MCV MCHC RDW Plt Count Lymph % (Auto) [place] % (Auto) Lymph # (Auto) [place] # (Auto) Seg Neutrophils % Seg Neuts % (Manual) Lymphocytes % (Manual) Monocytes % (Manual) Nucleated RBC % Seg Neutrophils # Seg Neutrophils # Man Lymphocytes # (Manual) Monocytes # (Manual) PT INR APTT D-Dimer Heparin Anti-Xa Level ABG pH POC ABG pCO2 POC ABG pO2 ABG pO2 ABG HCO3 ABG O2 Saturation ABG Base Excess ABG Hemoglobin ABG Oxyhemoglobin ABG Sodium ABG Potassium ABG Glucose Oxyhemoglobin Sodium Potassium Chloride Carbon Dioxide BUN Creatinine Glucose POC Glucose 162 H 187 H Lactic Acid Calcium Phosphorus Magnesium Ferritin Lactate Dehydrogenase C-Reactive Protein NT-Pro-B Natriuret Pep Total Protein Albumin Triglycerides 267 H Arterial Blood Glucose Urine pH Ur Specific [place] Coronavirus (PCR) 03/16/21 03/16/21 03/16/21 17:29 22:25 23:22 WBC RBC Hgb Hct MCV MCHC RDW Plt Count Lymph % (Auto) [place] % (Auto) Lymph # (Auto) [place] # (Auto) Seg Neutrophils % Seg Neuts % (Manual) Lymphocytes % (Manual) Monocytes % (Manual) Nucleated RBC % Seg Neutrophils # Seg Neutrophils # Man Lymphocytes # (Manual) Monocytes # (Manual) PT INR APTT D-Dimer Heparin Anti-Xa Level ABG pH POC ABG pCO2 POC ABG pO2 ABG pO2 ABG HCO3 ABG O2 Saturation ABG Base Excess ABG Hemoglobin ABG Oxyhemoglobin ABG Sodium ABG Potassium ABG Glucose Oxyhemoglobin Sodium Potassium Chloride Carbon Dioxide BUN Creatinine Glucose POC Glucose 237 H 165 H 189 H Lactic Acid Calcium Phosphorus Magnesium Ferritin Lactate Dehydrogenase C-Reactive Protein NT-Pro-B Natriuret Pep Total Protein Albumin Triglycerides Arterial Blood Glucose Urine pH Ur Specific [place] Coronavirus (PCR) 03/17/21 03/17/21 03/17/21 04:40 04:40 04:40 WBC 14.1 H RBC Hgb Hct MCV MCHC RDW 15.3 H Plt Count Lymph % (Auto) 12.6 L [place] % (Auto) 11.3 H Lymph # (Auto) [place] # (Auto) 1.6 H Seg Neutrophils % 74.9 H Seg Neuts % (Manual) Lymphocytes % (Manual) Monocytes % (Manual) Nucleated RBC % Seg Neutrophils # 10.5 H Seg Neutrophils # Man Lymphocytes # (Manual) Monocytes # (Manual) PT INR APTT D-Dimer 1359.12 H Heparin Anti-Xa Level ABG pH POC ABG pCO2 POC ABG pO2 ABG pO2 ABG HCO3 ABG O2 Saturation ABG Base Excess ABG Hemoglobin ABG Oxyhemoglobin ABG Sodium ABG Potassium ABG Glucose Oxyhemoglobin Sodium 148 H Potassium Chloride 107.5 H Carbon Dioxide 33 H BUN 42 H Creatinine Glucose 183 H POC Glucose Lactic Acid Calcium Phosphorus Magnesium 2.70 H Ferritin Lactate Dehydrogenase C-Reactive Protein NT-Pro-B Natriuret Pep Total Protein Albumin Triglycerides Arterial Blood Glucose Urine pH Ur Specific [place] Coronavirus (PCR) 03/17/21 03/17/21 03/17/21 05:53 11:05 11:51 WBC RBC Hgb Hct MCV MCHC RDW Plt Count Lymph % (Auto) [place] % (Auto) Lymph # (Auto) [place] # (Auto) Seg Neutrophils % Seg Neuts % (Manual) Lymphocytes % (Manual) Monocytes % (Manual) Nucleated RBC % Seg Neutrophils # Seg Neutrophils # Man Lymphocytes # (Manual) Monocytes # (Manual) PT INR APTT D-Dimer Heparin Anti-Xa Level ABG pH POC ABG pCO2 POC ABG pO2 ABG pO2 ABG HCO3 35.7 H ABG O2 Saturation ABG Base Excess 8.7 H ABG Hemoglobin ABG Oxyhemoglobin ABG Sodium ABG Potassium ABG Glucose Oxyhemoglobin 94.2 L Sodium Potassium Chloride Carbon Dioxide BUN Creatinine Glucose POC Glucose 176 H 197 H Lactic Acid Calcium Phosphorus Magnesium Ferritin Lactate Dehydrogenase C-Reactive Protein NT-Pro-B Natriuret Pep Total Protein Albumin Triglycerides Arterial Blood Glucose Urine pH Ur Specific [place] Coronavirus (PCR) 03/17/21 03/17/21 03/17/21 16:54 21:10 23:33 WBC RBC Hgb Hct MCV MCHC RDW Plt Count Lymph % (Auto) [place] % (Auto) Lymph # (Auto) [place] # (Auto) Seg Neutrophils % Seg Neuts % (Manual) Lymphocytes % (Manual) Monocytes % (Manual) Nucleated RBC % Seg Neutrophils # Seg Neutrophils # Man Lymphocytes # (Manual) Monocytes # (Manual) PT INR APTT D-Dimer Heparin Anti-Xa Level ABG pH POC ABG pCO2 POC ABG pO2 ABG pO2 ABG HCO3 ABG O2 Saturation ABG Base Excess ABG Hemoglobin ABG Oxyhemoglobin ABG Sodium ABG Potassium ABG Glucose Oxyhemoglobin Sodium Potassium Chloride Carbon Dioxide BUN Creatinine Glucose POC Glucose 135 H 160 H 138 H Lactic Acid Calcium Phosphorus Magnesium Ferritin Lactate Dehydrogenase C-Reactive Protein NT-Pro-B Natriuret Pep Total Protein Albumin Triglycerides Arterial Blood Glucose Urine pH Ur Specific [place] Coronavirus (PCR) 03/18/21 03/18/21 03/18/21 04:18 04:50 05:43 WBC RBC Hgb Hct MCV MCHC RDW Plt Count Lymph % (Auto) [place] % (Auto) Lymph # (Auto) [place] # (Auto) Seg Neutrophils % Seg Neuts % (Manual) Lymphocytes % (Manual) Monocytes % (Manual) Nucleated RBC % Seg Neutrophils # Seg Neutrophils # Man Lymphocytes # (Manual) Monocytes # (Manual) PT INR APTT D-Dimer Heparin Anti-Xa Level ABG pH POC ABG pCO2 POC ABG pO2 ABG pO2 59.8 L ABG HCO3 36.5 H ABG O2 Saturation 90.7 L ABG Base Excess 9.4 H ABG Hemoglobin 12.0 L ABG Oxyhemoglobin ABG Sodium ABG Potassium ABG Glucose Oxyhemoglobin 88.9 L Sodium Potassium Chloride 107.2 H Carbon Dioxide 34 H BUN 38 H Creatinine 0.7 L Glucose 136 H POC Glucose 128 H Lactic Acid Calcium Phosphorus Magnesium Ferritin Lactate Dehydrogenase C-Reactive Protein NT-Pro-B Natriuret Pep Total Protein Albumin Triglycerides Arterial Blood Glucose Urine pH Ur Specific [place] Coronavirus (PCR) 03/18/21 03/18/21 03/18/21 11:20 17:35 23:35 WBC RBC Hgb Hct MCV MCHC RDW Plt Count Lymph % (Auto) [place] % (Auto) Lymph # (Auto) [place] # (Auto) Seg Neutrophils % Seg Neuts % (Manual) Lymphocytes % (Manual) Monocytes % (Manual) Nucleated RBC % Seg Neutrophils # Seg Neutrophils # Man Lymphocytes # (Manual) Monocytes # (Manual) PT INR APTT D-Dimer Heparin Anti-Xa Level ABG pH POC ABG pCO2 POC ABG pO2 ABG pO2 70.7 L ABG HCO3 33.6 H ABG O2 Saturation ABG Base Excess 8.0 H ABG Hemoglobin ABG Oxyhemoglobin ABG Sodium ABG Potassium ABG Glucose Oxyhemoglobin 93.7 L Sodium Potassium Chloride Carbon Dioxide BUN Creatinine Glucose POC Glucose 189 H 144 H Lactic Acid Calcium Phosphorus Magnesium Ferritin Lactate Dehydrogenase C-Reactive Protein NT-Pro-B Natriuret Pep Total Protein Albumin Triglycerides Arterial Blood Glucose Urine pH Ur Specific [place] Coronavirus (PCR) 03/19/21 03/19/21 03/19/21 02:35 04:20 04:20 WBC 14.0 H RBC Hgb Hct MCV MCHC RDW Plt Count Lymph % (Auto) [place] % (Auto) Lymph # (Auto) [place] # (Auto) Seg Neutrophils % Seg Neuts % (Manual) Lymphocytes % (Manual) Monocytes % (Manual) Nucleated RBC % Seg Neutrophils # Seg Neutrophils # Man Lymphocytes # (Manual) Monocytes # (Manual) PT INR APTT D-Dimer Heparin Anti-Xa Level ABG pH POC ABG pCO2 POC ABG pO2 ABG pO2 ABG HCO3 32.0 H ABG O2 Saturation ABG Base Excess 5.2 H ABG Hemoglobin 13.6 L ABG Oxyhemoglobin ABG Sodium ABG Potassium ABG Glucose Oxyhemoglobin 94.6 L Sodium 146 H Potassium Chloride 109.3 H Carbon Dioxide BUN 36 H Creatinine Glucose 203 H POC Glucose Lactic Acid Calcium Phosphorus Magnesium Ferritin Lactate Dehydrogenase C-Reactive Protein NT-Pro-B Natriuret Pep Total Protein Albumin Triglycerides 254 H Arterial Blood Glucose Urine pH Ur Specific [place] Coronavirus (PCR) 03/19/21 03/19/21 03/19/21 05:45 11:36 23:51 WBC RBC Hgb Hct MCV MCHC RDW Plt Count Lymph % (Auto) [place] % (Auto) Lymph # (Auto) [place] # (Auto) Seg Neutrophils % Seg Neuts % (Manual) Lymphocytes % (Manual) Monocytes % (Manual) Nucleated RBC % Seg Neutrophils # Seg Neutrophils # Man Lymphocytes # (Manual) Monocytes # (Manual) PT INR APTT D-Dimer Heparin Anti-Xa Level ABG pH POC ABG pCO2 POC ABG pO2 ABG pO2 ABG HCO3 ABG O2 Saturation ABG Base Excess ABG Hemoglobin ABG Oxyhemoglobin ABG Sodium ABG Potassium ABG Glucose Oxyhemoglobin Sodium Potassium Chloride Carbon Dioxide BUN Creatinine Glucose POC Glucose 164 H 172 H 140 H Lactic Acid Calcium Phosphorus Magnesium Ferritin Lactate Dehydrogenase C-Reactive Protein NT-Pro-B Natriuret Pep Total Protein Albumin Triglycerides Arterial Blood Glucose Urine pH Ur Specific [place] Coronavirus (PCR) 03/20/21 03/20/21 03/20/21 03:29 04:45 04:45 WBC RBC Hgb Hct MCV 95 H MCHC RDW 15.7 H Plt Count Lymph % (Auto) [place] % (Auto) Lymph # (Auto) [place] # (Auto) Seg Neutrophils % Seg Neuts % (Manual) Lymphocytes % (Manual) Monocytes % (Manual) Nucleated RBC % Seg Neutrophils # Seg Neutrophils # Man Lymphocytes # (Manual) Monocytes # (Manual) PT INR APTT D-Dimer Heparin Anti-Xa Level ABG pH 7.349 L POC ABG pCO2 POC ABG pO2 ABG pO2 ABG HCO3 33.7 H ABG O2 Saturation ABG Base Excess 6.4 H ABG Hemoglobin 11.8 L ABG Oxyhemoglobin ABG Sodium ABG Potassium ABG Glucose Oxyhemoglobin 93.9 L Sodium 146 H Potassium 5.5 H Chloride 111.1 H Carbon Dioxide BUN 34 H Creatinine 0.7 L Glucose 145 H POC Glucose Lactic Acid Calcium Phosphorus Magnesium 2.50 H Ferritin Lactate Dehydrogenase C-Reactive Protein NT-Pro-B Natriuret Pep Total Protein Albumin Triglycerides Arterial Blood Glucose Urine pH Ur Specific [place] Coronavirus (PCR) 03/20/21 03/20/21 03/20/21 05:41 09:08 11:54 WBC RBC Hgb Hct MCV MCHC RDW Plt Count Lymph % (Auto) [place] % (Auto) Lymph # (Auto) [place] # (Auto) Seg Neutrophils % Seg Neuts % (Manual) Lymphocytes % (Manual) Monocytes % (Manual) Nucleated RBC % Seg Neutrophils # Seg Neutrophils # Man Lymphocytes # (Manual) Monocytes # (Manual) PT INR APTT D-Dimer Heparin Anti-Xa Level ABG pH POC ABG pCO2 POC ABG pO2 ABG pO2 ABG HCO3 ABG O2 Saturation ABG Base Excess ABG Hemoglobin ABG Oxyhemoglobin ABG Sodium ABG Potassium ABG Glucose Oxyhemoglobin Sodium Potassium Chloride Carbon Dioxide BUN Creatinine Glucose POC Glucose 108 H 132 H 162 H Lactic Acid Calcium Phosphorus Magnesium Ferritin Lactate Dehydrogenase C-Reactive Protein NT-Pro-B Natriuret Pep Total Protein Albumin Triglycerides Arterial Blood Glucose Urine pH Ur Specific [place] Coronavirus (PCR) 03/20/21 03/21/21 03/21/21 17:28 00:31 04:44 WBC RBC Hgb Hct MCV MCHC RDW Plt Count Lymph % (Auto) [place] % (Auto) Lymph # (Auto) [place] # (Auto) Seg Neutrophils % Seg Neuts % (Manual) Lymphocytes % (Manual) Monocytes % (Manual) Nucleated RBC % Seg Neutrophils # Seg Neutrophils # Man Lymphocytes # (Manual) Monocytes # (Manual) PT INR APTT D-Dimer Heparin Anti-Xa Level ABG pH POC ABG pCO2 POC ABG pO2 ABG pO2 ABG HCO3 ABG O2 Saturation ABG Base Excess ABG Hemoglobin ABG Oxyhemoglobin ABG Sodium ABG Potassium ABG Glucose Oxyhemoglobin Sodium Potassium Chloride 108.3 H Carbon Dioxide BUN 30 H Creatinine 0.7 L Glucose POC Glucose 160 H 122 H Lactic Acid Calcium Phosphorus Magnesium Ferritin Lactate Dehydrogenase C-Reactive Protein NT-Pro-B Natriuret Pep Total Protein Albumin Triglycerides Arterial Blood Glucose Urine pH Ur Specific [place] Coronavirus (PCR) 03/21/21 03/21/21 03/21/21 09:18 10:09 13:20 WBC RBC Hgb Hct MCV MCHC RDW Plt Count Lymph % (Auto) [place] % (Auto) Lymph # (Auto) [place] # (Auto) Seg Neutrophils % Seg Neuts % (Manual) Lymphocytes % (Manual) Monocytes % (Manual) Nucleated RBC % Seg Neutrophils # Seg Neutrophils # Man Lymphocytes # (Manual) Monocytes # (Manual) PT INR APTT D-Dimer Heparin Anti-Xa Level ABG pH POC ABG pCO2 POC ABG pO2 ABG pO2 60.7 L ABG HCO3 30.6 H ABG O2 Saturation 93.6 L ABG Base Excess 5.3 H ABG Hemoglobin ABG Oxyhemoglobin ABG Sodium ABG Potassium ABG Glucose Oxyhemoglobin 91.7 L Sodium Potassium Chloride Carbon Dioxide BUN Creatinine Glucose POC Glucose 169 H 122 H Lactic Acid Calcium Phosphorus Magnesium Ferritin Lactate Dehydrogenase C-Reactive Protein NT-Pro-B Natriuret Pep Total Protein Albumin Triglycerides Arterial Blood Glucose Urine pH Ur Specific [place] Coronavirus (PCR) 03/21/21 03/21/21 03/21/21 17:25 22:41 23:52 WBC RBC Hgb Hct MCV MCHC RDW Plt Count Lymph % (Auto) [place] % (Auto) Lymph # (Auto) [place] # (Auto) Seg Neutrophils % Seg Neuts % (Manual) Lymphocytes % (Manual) Monocytes % (Manual) Nucleated RBC % Seg Neutrophils # Seg Neutrophils # Man Lymphocytes # (Manual) Monocytes # (Manual) PT INR APTT D-Dimer Heparin Anti-Xa Level ABG pH POC ABG pCO2 POC ABG pO2 ABG pO2 ABG HCO3 ABG O2 Saturation ABG Base Excess ABG Hemoglobin ABG Oxyhemoglobin ABG Sodium ABG Potassium ABG Glucose Oxyhemoglobin Sodium Potassium Chloride Carbon Dioxide BUN Creatinine Glucose POC Glucose 121 H 139 H 140 H Lactic Acid Calcium Phosphorus Magnesium Ferritin Lactate Dehydrogenase C-Reactive Protein NT-Pro-B Natriuret Pep Total Protein Albumin Triglycerides Arterial Blood Glucose Urine pH Ur Specific [place] Coronavirus (PCR) 03/22/21 03/22/21 03/22/21 05:58 07:26 07:26 WBC RBC Hgb Hct MCV MCHC 31 L RDW 16.1 H Plt Count Lymph % (Auto) [place] % (Auto) Lymph # (Auto) [place] # (Auto) Seg Neutrophils % Seg Neuts % (Manual) Lymphocytes % (Manual) Monocytes % (Manual) Nucleated RBC % Seg Neutrophils # Seg Neutrophils # Man Lymphocytes # (Manual) Monocytes # (Manual) PT INR APTT D-Dimer Heparin Anti-Xa Level ABG pH POC ABG pCO2 POC ABG pO2 ABG pO2 ABG HCO3 ABG O2 Saturation ABG Base Excess ABG Hemoglobin ABG Oxyhemoglobin ABG Sodium ABG Potassium ABG Glucose Oxyhemoglobin Sodium Potassium Chloride 108.5 H Carbon Dioxide BUN 44 H Creatinine Glucose 120 H POC Glucose 131 H Lactic Acid Calcium Phosphorus 5.80 H Magnesium 2.80 H Ferritin Lactate Dehydrogenase C-Reactive Protein NT-Pro-B Natriuret Pep Total Protein Albumin Triglycerides 305 H Arterial Blood Glucose Urine pH Ur Specific [place] Coronavirus (PCR) 03/22/21 03/22/21 03/22/21 09:38 11:15 16:01 WBC RBC Hgb Hct MCV MCHC RDW Plt Count Lymph % (Auto) [place] % (Auto) Lymph # (Auto) [place] # (Auto) Seg Neutrophils % Seg Neuts % (Manual) Lymphocytes % (Manual) Monocytes % (Manual) Nucleated RBC % Seg Neutrophils # Seg Neutrophils # Man Lymphocytes # (Manual) Monocytes # (Manual) PT INR APTT D-Dimer Heparin Anti-Xa Level ABG pH POC ABG pCO2 POC ABG pO2 ABG pO2 70.0 L ABG HCO3 30.0 H ABG O2 Saturation 94.6 L ABG Base Excess 3.6 H ABG Hemoglobin 13.5 L ABG Oxyhemoglobin ABG Sodium ABG Potassium ABG Glucose Oxyhemoglobin 92.5 L Sodium Potassium Chloride Carbon Dioxide BUN Creatinine Glucose POC Glucose 186 H 148 H Lactic Acid Calcium Phosphorus Magnesium Ferritin Lactate Dehydrogenase C-Reactive Protein NT-Pro-B Natriuret Pep Total Protein Albumin Triglycerides Arterial Blood Glucose Urine pH Ur Specific [place] Coronavirus (PCR) 03/22/21 03/22/21 03/23/21 21:13 23:48 07:04 WBC 11.7 H RBC Hgb Hct MCV 95 H MCHC RDW 16.1 H Plt Count Lymph % (Auto) [place] % (Auto) Lymph # (Auto) [place] # (Auto) Seg Neutrophils % Seg Neuts % (Manual) Lymphocytes % (Manual) Monocytes % (Manual) Nucleated RBC % Seg Neutrophils # Seg Neutrophils # Man Lymphocytes # (Manual) Monocytes # (Manual) PT INR APTT D-Dimer Heparin Anti-Xa Level ABG pH POC ABG pCO2 POC ABG pO2 ABG pO2 ABG HCO3 ABG O2 Saturation ABG Base Excess ABG Hemoglobin ABG Oxyhemoglobin ABG Sodium ABG Potassium ABG Glucose Oxyhemoglobin Sodium Potassium Chloride Carbon Dioxide BUN Creatinine Glucose POC Glucose 121 H 114 H Lactic Acid Calcium Phosphorus Magnesium Ferritin Lactate Dehydrogenase C-Reactive Protein NT-Pro-B Natriuret Pep Total Protein Albumin Triglycerides Arterial Blood Glucose Urine pH Ur Specific [place] Coronavirus (PCR) 03/23/21 03/23/2122 07:04 08:35 11:19 WBC RBC Hgb Hct MCV MCHC RDW Plt Count Lymph % (Auto) [place] % (Auto) Lymph # (Auto) [place] # (Auto) Seg Neutrophils % Seg Neuts % (Manual) Lymphocytes % (Manual) Monocytes % (Manual) Nucleated RBC % Seg Neutrophils # Seg Neutrophils # Man Lymphocytes # (Manual) Monocytes # (Manual) PT INR APTT D-Dimer Heparin Anti-Xa Level ABG pH 7.345 L POC ABG pCO2 POC ABG pO2 ABG pO2 167.9 H ABG HCO3 32.2 H ABG O2 Saturation ABG Base Excess 4.8 H ABG Hemoglobin 13.4 L ABG Oxyhemoglobin ABG Sodium ABG Potassium ABG Glucose Oxyhemoglobin Sodium 148 H Potassium Chloride 111.3 H Carbon Dioxide 31 H BUN 31 H Creatinine Glucose 131 H POC Glucose 165 H Lactic Acid Calcium Phosphorus Magnesium 2.50 H Ferritin Lactate Dehydrogenase C-Reactive Protein NT-Pro-B Natriuret Pep Total Protein Albumin Triglycerides Arterial Blood Glucose Urine pH Ur Specific [place] Coronavirus (PCR) 03/23/21 03/23/21 03/24/21 16:48 20:52 00:07 WBC RBC Hgb Hct MCV MCHC RDW Plt Count Lymph % (Auto) [place] % (Auto) Lymph # (Auto) [place] # (Auto) Seg Neutrophils % Seg Neuts % (Manual) Lymphocytes % (Manual) Monocytes % (Manual) Nucleated RBC % Seg Neutrophils # Seg Neutrophils # Man Lymphocytes # (Manual) Monocytes # (Manual) PT INR APTT D-Dimer Heparin Anti-Xa Level ABG pH POC ABG pCO2 POC ABG pO2 ABG pO2 ABG HCO3 ABG O2 Saturation ABG Base Excess ABG Hemoglobin ABG Oxyhemoglobin ABG Sodium ABG Potassium ABG Glucose Oxyhemoglobin Sodium Potassium Chloride Carbon Dioxide BUN Creatinine Glucose POC Glucose 160 H 127 H 147 H Lactic Acid Calcium Phosphorus Magnesium Ferritin Lactate Dehydrogenase C-Reactive Protein NT-Pro-B Natriuret Pep Total Protein Albumin Triglycerides Arterial Blood Glucose Urine pH Ur Specific [place] Coronavirus (PCR) 03/24/21 03/24/21 03/24/21 04:34 04:34 05:20 WBC 13.3 H RBC Hgb Hct MCV MCHC 31 L RDW 16.1 H Plt Count Lymph % (Auto) [place] % (Auto) Lymph # (Auto) [place] # (Auto) Seg Neutrophils % Seg Neuts % (Manual) Lymphocytes % (Manual) Monocytes % (Manual) Nucleated RBC % Seg Neutrophils # Seg Neutrophils # Man Lymphocytes # (Manual) Monocytes # (Manual) PT INR APTT D-Dimer Heparin Anti-Xa Level ABG pH POC ABG pCO2 POC ABG pO2 ABG pO2 ABG HCO3 ABG O2 Saturation ABG Base Excess ABG Hemoglobin ABG Oxyhemoglobin ABG Sodium ABG Potassium ABG Glucose Oxyhemoglobin Sodium Potassium 5.2 H Chloride Carbon Dioxide BUN 28 H Creatinine 0.7 L Glucose 152 H POC Glucose 141 H Lactic Acid Calcium Phosphorus Magnesium Ferritin Lactate Dehydrogenase C-Reactive Protein NT-Pro-B Natriuret Pep Total Protein Albumin Triglycerides Arterial Blood Glucose Urine pH Ur Specific [place] Coronavirus (PCR) 03/24/21 03/24/21 03/24/21 09:40 11:38 16:45 WBC RBC Hgb Hct MCV MCHC RDW Plt Count Lymph % (Auto) [place] % (Auto) Lymph # (Auto) [place] # (Auto) Seg Neutrophils % Seg Neuts % (Manual) Lymphocytes % (Manual) Monocytes % (Manual) Nucleated RBC % Seg Neutrophils # Seg Neutrophils # Man Lymphocytes # (Manual) Monocytes # (Manual) PT INR APTT D-Dimer Heparin Anti-Xa Level ABG pH POC ABG pCO2 POC ABG pO2 ABG pO2 ABG HCO3 ABG O2 Saturation ABG Base Excess ABG Hemoglobin ABG Oxyhemoglobin ABG Sodium ABG Potassium ABG Glucose Oxyhemoglobin Sodium Potassium Chloride Carbon Dioxide BUN Creatinine Glucose POC Glucose 126 H 136 H 118 H Lactic Acid Calcium Phosphorus Magnesium Ferritin Lactate Dehydrogenase C-Reactive Protein NT-Pro-B Natriuret Pep Total Protein Albumin Triglycerides Arterial Blood Glucose Urine pH Ur Specific [place] Coronavirus (PCR) 03/24/21 03/24/21 03/25/21 21:03 23:49 04:32 WBC RBC Hgb Hct MCV MCHC RDW 16.1 H Plt Count 121 L Lymph % (Auto) [place] % (Auto) Lymph # (Auto) [place] # (Auto) Seg Neutrophils % Seg Neuts % (Manual) Lymphocytes % (Manual) Monocytes % (Manual) Nucleated RBC % Seg Neutrophils # Seg Neutrophils # Man Lymphocytes # (Manual) Monocytes # (Manual) PT INR APTT D-Dimer Heparin Anti-Xa Level ABG pH POC ABG pCO2 POC ABG pO2 ABG pO2 ABG HCO3 ABG O2 Saturation ABG Base Excess ABG Hemoglobin ABG Oxyhemoglobin ABG Sodium ABG Potassium ABG Glucose Oxyhemoglobin Sodium Potassium Chloride Carbon Dioxide BUN Creatinine Glucose POC Glucose 116 H 125 H Lactic Acid Calcium Phosphorus Magnesium Ferritin Lactate Dehydrogenase C-Reactive Protein NT-Pro-B Natriuret Pep Total Protein Albumin Triglycerides Arterial Blood Glucose Urine pH Ur Specific [place] Coronavirus (PCR) 03/25/21 03/25/21 03/25/21 04:32 05:21 09:29 WBC RBC Hgb Hct MCV MCHC RDW Plt Count Lymph % (Auto) [place] % (Auto) Lymph # (Auto) [place] # (Auto) Seg Neutrophils % Seg Neuts % (Manual) Lymphocytes % (Manual) Monocytes % (Manual) Nucleated RBC % Seg Neutrophils # Seg Neutrophils # Man Lymphocytes # (Manual) Monocytes # (Manual) PT INR APTT D-Dimer Heparin Anti-Xa Level ABG pH POC ABG pCO2 POC ABG pO2 ABG pO2 ABG HCO3 ABG O2 Saturation ABG Base Excess ABG Hemoglobin ABG Oxyhemoglobin ABG Sodium ABG Potassium ABG Glucose Oxyhemoglobin Sodium 135 L D Potassium Chloride Carbon Dioxide BUN 25 H Creatinine 0.7 L Glucose 168 H POC Glucose 149 H 115 H Lactic Acid Calcium Phosphorus Magnesium Ferritin Lactate Dehydrogenase C-Reactive Protein NT-Pro-B Natriuret Pep Total Protein Albumin Triglycerides Arterial Blood Glucose Urine pH Ur Specific [place] Coronavirus (PCR) 03/25/21 03/25/21 03/25/21 12:26 12:35 23:53 WBC RBC Hgb Hct MCV MCHC RDW Plt Count Lymph % (Auto) [place] % (Auto) Lymph # (Auto) [place] # (Auto) Seg Neutrophils % Seg Neuts % (Manual) Lymphocytes % (Manual) Monocytes % (Manual) Nucleated RBC % Seg Neutrophils # Seg Neutrophils # Man Lymphocytes # (Manual) Monocytes # (Manual) PT INR APTT D-Dimer Heparin Anti-Xa Level ABG pH POC ABG pCO2 POC ABG pO2 ABG pO2 100.5 H ABG HCO3 33.6 H ABG O2 Saturation ABG Base Excess 6.4 H ABG Hemoglobin 12.0 L ABG Oxyhemoglobin ABG Sodium ABG Potassium ABG Glucose Oxyhemoglobin Sodium Potassium Chloride Carbon Dioxide BUN Creatinine Glucose POC Glucose 108 H 137 H Lactic Acid Calcium Phosphorus Magnesium Ferritin Lactate Dehydrogenase C-Reactive Protein NT-Pro-B Natriuret Pep Total Protein Albumin Triglycerides Arterial Blood Glucose Urine pH Ur Specific [place] Coronavirus (PCR) 03/26/21 03/26/21 03/26/21 05:14 07:09 07:09 WBC RBC Hgb Hct MCV MCHC RDW 16.5 H Plt Count 139 L Lymph % (Auto) [place] % (Auto) Lymph # (Auto) [place] # (Auto) Seg Neutrophils % Seg Neuts % (Manual) Lymphocytes % (Manual) Monocytes % (Manual) Nucleated RBC % Seg Neutrophils # Seg Neutrophils # Man Lymphocytes # (Manual) Monocytes # (Manual) PT INR APTT D-Dimer Heparin Anti-Xa Level ABG pH POC ABG pCO2 POC ABG pO2 ABG pO2 ABG HCO3 ABG O2 Saturation ABG Base Excess ABG Hemoglobin ABG Oxyhemoglobin ABG Sodium ABG Potassium ABG Glucose Oxyhemoglobin Sodium Potassium Chloride Carbon Dioxide BUN 22 H Creatinine 0.7 L Glucose 108 H POC Glucose 116 H Lactic Acid Calcium Phosphorus Magnesium Ferritin Lactate Dehydrogenase C-Reactive Protein NT-Pro-B Natriuret Pep Total Protein Albumin Triglycerides Arterial Blood Glucose Urine pH Ur Specific [place] Coronavirus (PCR) 03/26/21 03/26/21 03/26/21 09:51 11:15 16:59 WBC RBC Hgb Hct MCV MCHC RDW Plt Count Lymph % (Auto) [place] % (Auto) Lymph # (Auto) [place] # (Auto) Seg Neutrophils % Seg Neuts % (Manual) Lymphocytes % (Manual) Monocytes % (Manual) Nucleated RBC % Seg Neutrophils # Seg Neutrophils # Man Lymphocytes # (Manual) Monocytes # (Manual) PT INR APTT D-Dimer Heparin Anti-Xa Level ABG pH POC ABG pCO2 POC ABG pO2 ABG pO2 ABG HCO3 ABG O2 Saturation ABG Base Excess ABG Hemoglobin ABG Oxyhemoglobin ABG Sodium ABG Potassium ABG Glucose Oxyhemoglobin Sodium Potassium Chloride Carbon Dioxide BUN Creatinine Glucose POC Glucose 107 H 119 H 174 H Lactic Acid Calcium Phosphorus Magnesium Ferritin Lactate Dehydrogenase C-Reactive Protein NT-Pro-B Natriuret Pep Total Protein Albumin Triglycerides Arterial Blood Glucose Urine pH Ur Specific [place] Coronavirus (PCR) 03/26/21 03/27/21 03/27/21 22:18 07:08 10:28 WBC RBC Hgb Hct MCV 95 H MCHC RDW 16.2 H Plt Count 134 L Lymph % (Auto) [place] % (Auto) Lymph # (Auto) [place] # (Auto) Seg Neutrophils % Seg Neuts % (Manual) Lymphocytes % (Manual) Monocytes % (Manual) Nucleated RBC % Seg Neutrophils # Seg Neutrophils # Man Lymphocytes # (Manual) Monocytes # (Manual) PT INR APTT D-Dimer Heparin Anti-Xa Level ABG pH POC ABG pCO2 POC ABG pO2 ABG pO2 ABG HCO3 ABG O2 Saturation ABG Base Excess ABG Hemoglobin ABG Oxyhemoglobin ABG Sodium ABG Potassium ABG Glucose Oxyhemoglobin Sodium Potassium Chloride Carbon Dioxide BUN Creatinine Glucose POC Glucose 107 H 52 L Lactic Acid Calcium Phosphorus Magnesium Ferritin Lactate Dehydrogenase C-Reactive Protein NT-Pro-B Natriuret Pep Total Protein Albumin Triglycerides Arterial Blood Glucose Urine pH Ur Specific [place] Coronavirus (PCR) 03/27/21 03/27/21 03/27/21 10:28 11:45 17:39 WBC RBC Hgb Hct MCV MCHC RDW Plt Count Lymph % (Auto) [place] % (Auto) Lymph # (Auto) [place] # (Auto) Seg Neutrophils % Seg Neuts % (Manual) Lymphocytes % (Manual) Monocytes % (Manual) Nucleated RBC % Seg Neutrophils # Seg Neutrophils # Man Lymphocytes # (Manual) Monocytes # (Manual) PT INR APTT D-Dimer Heparin Anti-Xa Level ABG pH POC ABG pCO2 POC ABG pO2 ABG pO2 ABG HCO3 ABG O2 Saturation ABG Base Excess ABG Hemoglobin ABG Oxyhemoglobin ABG Sodium ABG Potassium ABG Glucose Oxyhemoglobin Sodium 136 L Potassium Chloride Carbon Dioxide BUN Creatinine 0.7 L Glucose 150 H POC Glucose 121 H 165 H Lactic Acid Calcium Phosphorus Magnesium Ferritin Lactate Dehydrogenase C-Reactive Protein NT-Pro-B Natriuret Pep Total Protein Albumin Triglycerides Arterial Blood Glucose Urine pH Ur Specific [place] Coronavirus (PCR) 03/28/21 03/28/21 03/28/21 07:14 11:42 18:22 WBC RBC Hgb Hct MCV MCHC RDW 16.4 H Plt Count Lymph % (Auto) [place] % (Auto) Lymph # (Auto) [place] # (Auto) Seg Neutrophils % Seg Neuts % (Manual) Lymphocytes % (Manual) Monocytes % (Manual) Nucleated RBC % Seg Neutrophils # Seg Neutrophils # Man Lymphocytes # (Manual) Monocytes # (Manual) PT INR APTT D-Dimer Heparin Anti-Xa Level ABG pH POC ABG pCO2 POC ABG pO2 ABG pO2 ABG HCO3 ABG O2 Saturation ABG Base Excess ABG Hemoglobin ABG Oxyhemoglobin ABG Sodium ABG Potassium ABG Glucose Oxyhemoglobin Sodium Potassium Chloride Carbon Dioxide BUN Creatinine Glucose POC Glucose 145 H 169 H Lactic Acid Calcium Phosphorus Magnesium Ferritin Lactate Dehydrogenase C-Reactive Protein NT-Pro-B Natriuret Pep Total Protein Albumin Triglycerides Arterial Blood Glucose Urine pH Ur Specific [place] Coronavirus (PCR) 03/28/21 03/29/21 03/29/21 23:39 04:50 04:50 WBC RBC Hgb 11.0 L Hct 34.9 L MCV MCHC RDW 15.9 H Plt Count Lymph % (Auto) [place] % (Auto) Lymph # (Auto) [place] # (Auto) Seg Neutrophils % Seg Neuts % (Manual) Lymphocytes % (Manual) Monocytes % (Manual) Nucleated RBC % Seg Neutrophils # Seg Neutrophils # Man Lymphocytes # (Manual) Monocytes # (Manual) PT INR APTT D-Dimer Heparin Anti-Xa Level ABG pH POC ABG pCO2 POC ABG pO2 ABG pO2 ABG HCO3 ABG O2 Saturation ABG Base Excess ABG Hemoglobin ABG Oxyhemoglobin ABG Sodium ABG Potassium ABG Glucose Oxyhemoglobin Sodium Potassium Chloride Carbon Dioxide 34 H BUN Creatinine 0.6 L Glucose 152 H POC Glucose 139 H Lactic Acid Calcium Phosphorus Magnesium Ferritin Lactate Dehydrogenase C-Reactive Protein NT-Pro-B Natriuret Pep Total Protein Albumin Triglycerides Arterial Blood Glucose Urine pH Ur Specific [place] Coronavirus (PCR) 03/29/21 03/29/21 03/29/21 05:25 11:34 18:02 WBC RBC Hgb Hct MCV MCHC RDW Plt Count Lymph % (Auto) [place] % (Auto) Lymph # (Auto) [place] # (Auto) Seg Neutrophils % Seg Neuts % (Manual) Lymphocytes % (Manual) Monocytes % (Manual) Nucleated RBC % Seg Neutrophils # Seg Neutrophils # Man Lymphocytes # (Manual) Monocytes # (Manual) PT INR APTT D-Dimer Heparin Anti-Xa Level ABG pH POC ABG pCO2 POC ABG pO2 ABG pO2 ABG HCO3 ABG O2 Saturation ABG Base Excess ABG Hemoglobin ABG Oxyhemoglobin ABG Sodium ABG Potassium ABG Glucose Oxyhemoglobin Sodium Potassium Chloride Carbon Dioxide BUN Creatinine Glucose POC Glucose 127 H 169 H 173 H Lactic Acid Calcium Phosphorus Magnesium Ferritin Lactate Dehydrogenase C-Reactive Protein NT-Pro-B Natriuret Pep Total Protein Albumin Triglycerides Arterial Blood Glucose Urine pH Ur Specific [place] Coronavirus (PCR) 03/29/21 03/30/21 03/30/21 21:42 00:01 05:36 WBC RBC Hgb Hct MCV MCHC RDW 16.7 H Plt Count Lymph % (Auto) [place] % (Auto) Lymph # (Auto) [place] # (Auto) Seg Neutrophils % Seg Neuts % (Manual) Lymphocytes % (Manual) Monocytes % (Manual) Nucleated RBC % Seg Neutrophils # Seg Neutrophils # Man Lymphocytes # (Manual) Monocytes # (Manual) PT INR APTT D-Dimer Heparin Anti-Xa Level ABG pH POC ABG pCO2 POC ABG pO2 ABG pO2 ABG HCO3 ABG O2 Saturation ABG Base Excess ABG Hemoglobin ABG Oxyhemoglobin ABG Sodium ABG Potassium ABG Glucose Oxyhemoglobin Sodium Potassium Chloride Carbon Dioxide BUN Creatinine Glucose POC Glucose 184 H 161 H Lactic Acid Calcium Phosphorus Magnesium Ferritin Lactate Dehydrogenase C-Reactive Protein NT-Pro-B Natriuret Pep Total Protein Albumin Triglycerides Arterial Blood Glucose Urine pH Ur Specific [place] Coronavirus (PCR) 03/30/21 03/30/21 03/30/21 05:36 06:03 11:32 WBC RBC Hgb Hct MCV MCHC RDW Plt Count Lymph % (Auto) [place] % (Auto) Lymph # (Auto) [place] # (Auto) Seg Neutrophils % Seg Neuts % (Manual) Lymphocytes % (Manual) Monocytes % (Manual) Nucleated RBC % Seg Neutrophils # Seg Neutrophils # Man Lymphocytes # (Manual) Monocytes # (Manual) PT INR APTT D-Dimer Heparin Anti-Xa Level ABG pH POC ABG pCO2 POC ABG pO2 ABG pO2 ABG HCO3 ABG O2 Saturation ABG Base Excess ABG Hemoglobin ABG Oxyhemoglobin ABG Sodium ABG Potassium ABG Glucose Oxyhemoglobin Sodium Potassium Chloride Carbon Dioxide BUN Creatinine 0.5 L Glucose 127 H POC Glucose 130 H 183 H Lactic Acid Calcium Phosphorus Magnesium Ferritin Lactate Dehydrogenase C-Reactive Protein NT-Pro-B Natriuret Pep Total Protein Albumin Triglycerides Arterial Blood Glucose Urine pH Ur Specific [place] Coronavirus (PCR) 03/30/21 03/30/21 03/30/21 15:00 16:23 21:07 WBC RBC Hgb Hct MCV MCHC RDW Plt Count Lymph % (Auto) [place] % (Auto) Lymph # (Auto) [place] # (Auto) Seg Neutrophils % Seg Neuts % (Manual) Lymphocytes % (Manual) Monocytes % (Manual) Nucleated RBC % Seg Neutrophils # Seg Neutrophils # Man Lymphocytes # (Manual) Monocytes # (Manual) PT INR APTT D-Dimer Heparin Anti-Xa Level ABG pH POC ABG pCO2 POC ABG pO2 ABG pO2 67.2 L ABG HCO3 34.9 H ABG O2 Saturation ABG Base Excess 9.1 H ABG Hemoglobin 11.6 L ABG Oxyhemoglobin ABG Sodium ABG Potassium ABG Glucose Oxyhemoglobin 93.0 L Sodium Potassium Chloride Carbon Dioxide BUN Creatinine Glucose POC Glucose 162 H 146 H Lactic Acid Calcium Phosphorus Magnesium Ferritin Lactate Dehydrogenase C-Reactive Protein NT-Pro-B Natriuret Pep Total Protein Albumin Triglycerides Arterial Blood Glucose Urine pH Ur Specific [place] Coronavirus (PCR) 03/30/21 03/31/21 03/31/21 23:23 05:44 11:19 WBC RBC Hgb Hct MCV MCHC RDW Plt Count Lymph % (Auto) [place] % (Auto) Lymph # (Auto) [place] # (Auto) Seg Neutrophils % Seg Neuts % (Manual) Lymphocytes % (Manual) Monocytes % (Manual) Nucleated RBC % Seg Neutrophils # Seg Neutrophils # Man Lymphocytes # (Manual) Monocytes # (Manual) PT INR APTT D-Dimer Heparin Anti-Xa Level ABG pH POC ABG pCO2 POC ABG pO2 ABG pO2 ABG HCO3 ABG O2 Saturation ABG Base Excess ABG Hemoglobin ABG Oxyhemoglobin ABG Sodium ABG Potassium ABG Glucose Oxyhemoglobin Sodium Potassium Chloride Carbon Dioxide BUN Creatinine Glucose POC Glucose 138 H 180 H 178 H Lactic Acid Calcium Phosphorus Magnesium Ferritin Lactate Dehydrogenase C-Reactive Protein NT-Pro-B Natriuret Pep Total Protein Albumin Triglycerides Arterial Blood Glucose Urine pH Ur Specific [place] Coronavirus (PCR) 03/31/21 03/31/21 03/31/21 12:50 13:30 16:06 WBC RBC Hgb 11.3 L Hct 35.1 L MCV MCHC RDW 16.5 H Plt Count Lymph % (Auto) 7.6 L [place] % (Auto) 9.5 H Lymph # (Auto) 0.6 L [place] # (Auto) Seg Neutrophils % 78.3 H Seg Neuts % (Manual) Lymphocytes % (Manual) Monocytes % (Manual) Nucleated RBC % Seg Neutrophils # Seg Neutrophils # Man Lymphocytes # (Manual) Monocytes # (Manual) PT INR APTT D-Dimer Heparin Anti-Xa Level ABG pH POC ABG pCO2 POC ABG pO2 ABG pO2 99.4 H ABG HCO3 34.9 H ABG O2 Saturation ABG Base Excess 8.4 H ABG Hemoglobin 11.8 L ABG Oxyhemoglobin ABG Sodium ABG Potassium ABG Glucose Oxyhemoglobin Sodium Potassium Chloride Carbon Dioxide BUN Creatinine Glucose POC Glucose 197 H Lactic Acid Calcium Phosphorus Magnesium Ferritin Lactate Dehydrogenase C-Reactive Protein NT-Pro-B Natriuret Pep Total Protein Albumin Triglycerides Arterial Blood Glucose Urine pH Ur Specific [place] Coronavirus (PCR) 03/31/21 04/01/21 04/01/21 20:51 05:37 07:16 WBC RBC 3.39 L Hgb 10.5 L Hct 31.6 L MCV MCHC RDW 16.1 H Plt Count Lymph % (Auto) [place] % (Auto) Lymph # (Auto) [place] # (Auto) Seg Neutrophils % Seg Neuts % (Manual) Lymphocytes % (Manual) Monocytes % (Manual) Nucleated RBC % Seg Neutrophils # Seg Neutrophils # Man Lymphocytes # (Manual) Monocytes # (Manual) PT INR APTT D-Dimer Heparin Anti-Xa Level ABG pH POC ABG pCO2 POC ABG pO2 ABG pO2 ABG HCO3 ABG O2 Saturation ABG Base Excess ABG Hemoglobin ABG Oxyhemoglobin ABG Sodium ABG Potassium ABG Glucose Oxyhemoglobin Sodium Potassium Chloride Carbon Dioxide BUN Creatinine Glucose POC Glucose 140 H 128 H Lactic Acid Calcium Phosphorus Magnesium Ferritin Lactate Dehydrogenase C-Reactive Protein NT-Pro-B Natriuret Pep Total Protein Albumin Triglycerides Arterial Blood Glucose Urine pH Ur Specific [place] Coronavirus (PCR) 04/01/21 04/01/21 04/01/21 07:16 11:52 16:56 WBC RBC Hgb Hct MCV MCHC RDW Plt Count Lymph % (Auto) [place] % (Auto) Lymph # (Auto) [place] # (Auto) Seg Neutrophils % Seg Neuts % (Manual) Lymphocytes % (Manual) Monocytes % (Manual) Nucleated RBC % Seg Neutrophils # Seg Neutrophils # Man Lymphocytes # (Manual) Monocytes # (Manual) PT INR APTT D-Dimer Heparin Anti-Xa Level ABG pH POC ABG pCO2 POC ABG pO2 ABG pO2 ABG HCO3 ABG O2 Saturation ABG Base Excess ABG Hemoglobin ABG Oxyhemoglobin ABG Sodium ABG Potassium ABG Glucose Oxyhemoglobin Sodium Potassium Chloride Carbon Dioxide BUN Creatinine 0.6 L Glucose 131 H POC Glucose 182 H 179 H Lactic Acid Calcium 8.3 L Phosphorus Magnesium Ferritin Lactate Dehydrogenase C-Reactive Protein NT-Pro-B Natriuret Pep Total Protein Albumin Triglycerides Arterial Blood Glucose Urine pH Ur Specific [place] Coronavirus (PCR) 04/01/21 04/01/21 04/02/21 21:30 23:40 04:26 WBC RBC 3.62 L Hgb 10.8 L Hct 33.9 L MCV MCHC RDW 16.0 H Plt Count Lymph % (Auto) [place] % (Auto) Lymph # (Auto) [place] # (Auto) Seg Neutrophils % Seg Neuts % (Manual) Lymphocytes % (Manual) Monocytes % (Manual) Nucleated RBC % Seg Neutrophils # Seg Neutrophils # Man Lymphocytes # (Manual) Monocytes # (Manual) PT INR APTT D-Dimer Heparin Anti-Xa Level ABG pH POC ABG pCO2 POC ABG pO2 ABG pO2 ABG HCO3 ABG O2 Saturation ABG Base Excess ABG Hemoglobin ABG Oxyhemoglobin ABG Sodium ABG Potassium ABG Glucose Oxyhemoglobin Sodium Potassium Chloride Carbon Dioxide BUN Creatinine Glucose POC Glucose 131 H 129 H Lactic Acid Calcium Phosphorus Magnesium Ferritin Lactate Dehydrogenase C-Reactive Protein NT-Pro-B Natriuret Pep Total Protein Albumin Triglycerides Arterial Blood Glucose Urine pH Ur Specific [place] Coronavirus (PCR) 04/02/21 04/02/21 04/02/21 04:26 05:54 11:35 WBC RBC Hgb Hct MCV MCHC RDW Plt Count Lymph % (Auto) [place] % (Auto) Lymph # (Auto) [place] # (Auto) Seg Neutrophils % Seg Neuts % (Manual) Lymphocytes % (Manual) Monocytes % (Manual) Nucleated RBC % Seg Neutrophils # Seg Neutrophils # Man Lymphocytes # (Manual) Monocytes # (Manual) PT INR APTT D-Dimer Heparin Anti-Xa Level ABG pH POC ABG pCO2 POC ABG pO2 ABG pO2 ABG HCO3 ABG O2 Saturation ABG Base Excess ABG Hemoglobin ABG Oxyhemoglobin ABG Sodium ABG Potassium ABG Glucose Oxyhemoglobin Sodium 136 L Potassium Chloride Carbon Dioxide BUN Creatinine 0.6 L Glucose 152 H POC Glucose 151 H 178 H Lactic Acid Calcium Phosphorus Magnesium Ferritin Lactate Dehydrogenase C-Reactive Protein NT-Pro-B Natriuret Pep Total Protein Albumin Triglycerides Arterial Blood Glucose Urine pH Ur Specific [place] Coronavirus (PCR) 04/02/21 04/02/21 04/02/21 16:11 21:09 23:38 WBC RBC Hgb Hct MCV MCHC RDW Plt Count Lymph % (Auto) [place] % (Auto) Lymph # (Auto) [place] # (Auto) Seg Neutrophils % Seg Neuts % (Manual) Lymphocytes % (Manual) Monocytes % (Manual) Nucleated RBC % Seg Neutrophils # Seg Neutrophils # Man Lymphocytes # (Manual) Monocytes # (Manual) PT INR APTT D-Dimer Heparin Anti-Xa Level ABG pH POC ABG pCO2 POC ABG pO2 ABG pO2 ABG HCO3 ABG O2 Saturation ABG Base Excess ABG Hemoglobin ABG Oxyhemoglobin ABG Sodium ABG Potassium ABG Glucose Oxyhemoglobin Sodium Potassium Chloride Carbon Dioxide BUN Creatinine Glucose POC Glucose 186 H 145 H 152 H Lactic Acid Calcium Phosphorus Magnesium Ferritin Lactate Dehydrogenase C-Reactive Protein NT-Pro-B Natriuret Pep Total Protein Albumin Triglycerides Arterial Blood Glucose Urine pH Ur Specific [place] Coronavirus (PCR) 04/03/21 04/03/21 04/03/21 04:14 04:14 05:27 WBC RBC 3.62 L Hgb 11.0 L Hct 34.0 L MCV MCHC RDW 16.3 H Plt Count Lymph % (Auto) [place] % (Auto) Lymph # (Auto) [place] # (Auto) Seg Neutrophils % Seg Neuts % (Manual) Lymphocytes % (Manual) Monocytes % (Manual) Nucleated RBC % Seg Neutrophils # Seg Neutrophils # Man Lymphocytes # (Manual) Monocytes # (Manual) PT INR APTT D-Dimer Heparin Anti-Xa Level ABG pH POC ABG pCO2 POC ABG pO2 ABG pO2 ABG HCO3 ABG O2 Saturation ABG Base Excess ABG Hemoglobin ABG Oxyhemoglobin ABG Sodium ABG Potassium ABG Glucose Oxyhemoglobin Sodium Potassium Chloride Carbon Dioxide 31 H BUN Creatinine 0.6 L Glucose 155 H POC Glucose 165 H Lactic Acid Calcium Phosphorus Magnesium Ferritin Lactate Dehydrogenase C-Reactive Protein NT-Pro-B Natriuret Pep Total Protein Albumin Triglycerides Arterial Blood Glucose Urine pH Ur Specific [place] Coronavirus (PCR) 04/03/21 04/03/21 04/03/21 11:02 16:19 19:45 WBC RBC Hgb Hct MCV MCHC RDW Plt Count Lymph % (Auto) [place] % (Auto) Lymph # (Auto) [place] # (Auto) Seg Neutrophils % Seg Neuts % (Manual) Lymphocytes % (Manual) Monocytes % (Manual) Nucleated RBC % Seg Neutrophils # Seg Neutrophils # Man Lymphocytes # (Manual) Monocytes # (Manual) PT INR APTT D-Dimer Heparin Anti-Xa Level ABG pH POC ABG pCO2 POC ABG pO2 ABG pO2 ABG HCO3 ABG O2 Saturation ABG Base Excess ABG Hemoglobin ABG Oxyhemoglobin ABG Sodium ABG Potassium ABG Glucose Oxyhemoglobin Sodium Potassium Chloride Carbon Dioxide BUN Creatinine Glucose POC Glucose 161 H 180 H 136 H Lactic Acid Calcium Phosphorus Magnesium Ferritin Lactate Dehydrogenase C-Reactive Protein NT-Pro-B Natriuret Pep Total Protein Albumin Triglycerides Arterial Blood Glucose Urine pH Ur Specific [place] Coronavirus (PCR) 04/04/21 04/04/21 04/04/21 00:21 04:33 04:33 WBC 13.1 H RBC 3.49 L Hgb 10.3 L Hct 32.7 L MCV MCHC RDW 16.1 H Plt Count Lymph % (Auto) [place] % (Auto) Lymph # (Auto) [place] # (Auto) Seg Neutrophils % Seg Neuts % (Manual) Lymphocytes % (Manual) Monocytes % (Manual) Nucleated RBC % Seg Neutrophils # Seg Neutrophils # Man Lymphocytes # (Manual) Monocytes # (Manual) PT INR APTT D-Dimer Heparin Anti-Xa Level ABG pH POC ABG pCO2 POC ABG pO2 ABG pO2 ABG HCO3 ABG O2 Saturation ABG Base Excess ABG Hemoglobin ABG Oxyhemoglobin ABG Sodium ABG Potassium ABG Glucose Oxyhemoglobin Sodium Potassium Chloride Carbon Dioxide 31 H BUN Creatinine 0.4 L Glucose 153 H POC Glucose 140 H Lactic Acid Calcium Phosphorus Magnesium Ferritin Lactate Dehydrogenase C-Reactive Protein NT-Pro-B Natriuret Pep Total Protein Albumin Triglycerides Arterial Blood Glucose Urine pH Ur Specific [place] Coronavirus (PCR) 04/04/21 04/04/21 04/04/21 05:16 11:39 17:22 WBC RBC Hgb Hct MCV MCHC RDW Plt Count Lymph % (Auto) [place] % (Auto) Lymph # (Auto) [place] # (Auto) Seg Neutrophils % Seg Neuts % (Manual) Lymphocytes % (Manual) Monocytes % (Manual) Nucleated RBC % Seg Neutrophils # Seg Neutrophils # Man Lymphocytes # (Manual) Monocytes # (Manual) PT INR APTT D-Dimer Heparin Anti-Xa Level ABG pH POC ABG pCO2 POC ABG pO2 ABG pO2 ABG HCO3 ABG O2 Saturation ABG Base Excess ABG Hemoglobin ABG Oxyhemoglobin ABG Sodium ABG Potassium ABG Glucose Oxyhemoglobin Sodium Potassium Chloride Carbon Dioxide BUN Creatinine Glucose POC Glucose 152 H 154 H 198 H Lactic Acid Calcium Phosphorus Magnesium Ferritin Lactate Dehydrogenase C-Reactive Protein NT-Pro-B Natriuret Pep Total Protein Albumin Triglycerides Arterial Blood Glucose Urine pH Ur Specific [place] Coronavirus (PCR) 04/04/21 04/04/21 04/05/21 20:14 23:16 04:15 WBC RBC 3.21 L Hgb 10.0 L Hct 30.3 L MCV MCHC RDW 16.4 H Plt Count Lymph % (Auto) [place] % (Auto) Lymph # (Auto) [place] # (Auto) Seg Neutrophils % Seg Neuts % (Manual) Lymphocytes % (Manual) Monocytes % (Manual) Nucleated RBC % Seg Neutrophils # Seg Neutrophils # Man Lymphocytes # (Manual) Monocytes # (Manual) PT INR APTT D-Dimer Heparin Anti-Xa Level ABG pH POC ABG pCO2 POC ABG pO2 ABG pO2 ABG HCO3 ABG O2 Saturation ABG Base Excess ABG Hemoglobin ABG Oxyhemoglobin ABG Sodium ABG Potassium ABG Glucose Oxyhemoglobin Sodium Potassium Chloride Carbon Dioxide BUN Creatinine Glucose POC Glucose 161 H 139 H Lactic Acid Calcium Phosphorus Magnesium Ferritin Lactate Dehydrogenase C-Reactive Protein NT-Pro-B Natriuret Pep Total Protein Albumin Triglycerides Arterial Blood Glucose Urine pH Ur Specific [place] Coronavirus (PCR) 04/05/21 04/05/21 04/05/21 04:15 05:34 12:09 WBC RBC Hgb Hct MCV MCHC RDW Plt Count Lymph % (Auto) [place] % (Auto) Lymph # (Auto) [place] # (Auto) Seg Neutrophils % Seg Neuts % (Manual) Lymphocytes % (Manual) Monocytes % (Manual) Nucleated RBC % Seg Neutrophils # Seg Neutrophils # Man Lymphocytes # (Manual) Monocytes # (Manual) PT INR APTT D-Dimer Heparin Anti-Xa Level ABG pH POC ABG pCO2 POC ABG pO2 ABG pO2 ABG HCO3 ABG O2 Saturation ABG Base Excess ABG Hemoglobin ABG Oxyhemoglobin ABG Sodium ABG Potassium ABG Glucose Oxyhemoglobin Sodium Potassium Chloride 97.6 L Carbon Dioxide 32 H BUN Creatinine 0.5 L Glucose 147 H POC Glucose 145 H 173 H Lactic Acid Calcium Phosphorus Magnesium Ferritin Lactate Dehydrogenase C-Reactive Protein NT-Pro-B Natriuret Pep Total Protein Albumin Triglycerides Arterial Blood Glucose Urine pH Ur Specific [place] Coronavirus (PCR) 04/05/21 04/05/2104/05/22 17:35 21:07 23:15 WBC RBC Hgb Hct MCV MCHC RDW Plt Count Lymph % (Auto) [place] % (Auto) Lymph # (Auto) [place] # (Auto) Seg Neutrophils % Seg Neuts % (Manual) Lymphocytes % (Manual) Monocytes % (Manual) Nucleated RBC % Seg Neutrophils # Seg Neutrophils # Man Lymphocytes # (Manual) Monocytes # (Manual) PT INR APTT D-Dimer Heparin Anti-Xa Level ABG pH POC ABG pCO2 POC ABG pO2 ABG pO2 ABG HCO3 ABG O2 Saturation ABG Base Excess ABG Hemoglobin ABG Oxyhemoglobin ABG Sodium ABG Potassium ABG Glucose Oxyhemoglobin Sodium Potassium Chloride Carbon Dioxide BUN Creatinine Glucose POC Glucose 143 H 157 H 171 H Lactic Acid Calcium Phosphorus Magnesium Ferritin Lactate Dehydrogenase C-Reactive Protein NT-Pro-B Natriuret Pep Total Protein Albumin Triglycerides Arterial Blood Glucose Urine pH Ur Specific [place] Coronavirus (PCR) 04/06/21 04/06/21 04/06/21 04:49 05:14 11:42 WBC RBC Hgb Hct MCV MCHC RDW Plt Count Lymph % (Auto) [place] % (Auto) Lymph # (Auto) [place] # (Auto) Seg Neutrophils % Seg Neuts % (Manual) Lymphocytes % (Manual) Monocytes % (Manual) Nucleated RBC % Seg Neutrophils # Seg Neutrophils # Man Lymphocytes # (Manual) Monocytes # (Manual) PT INR APTT D-Dimer Heparin Anti-Xa Level ABG pH POC ABG pCO2 57.4 H POC ABG pO2 55.1 L ABG pO2 ABG HCO3 ABG O2 Saturation ABG Base Excess ABG Hemoglobin 11.5 L ABG Oxyhemoglobin 87.5 L ABG Sodium ABG Potassium ABG Glucose Oxyhemoglobin Sodium Potassium Chloride Carbon Dioxide BUN Creatinine Glucose POC Glucose 145 H 171 H Lactic Acid Calcium Phosphorus Magnesium Ferritin Lactate Dehydrogenase C-Reactive Protein NT-Pro-B Natriuret Pep Total Protein Albumin Triglycerides Arterial Blood Glucose Urine pH Ur Specific [place] Coronavirus (PCR) 04/06/21 04/06/21 04/06/21 11:50 15:36 15:36 WBC RBC Hgb 10.4 L Hct 32.5 L MCV MCHC RDW Plt Count 444 H Lymph % (Auto) [place] % (Auto) Lymph # (Auto) [place] # (Auto) Seg Neutrophils % Seg Neuts % (Manual) Lymphocytes % (Manual) Monocytes % (Manual) Nucleated RBC % Seg Neutrophils # Seg Neutrophils # Man Lymphocytes # (Manual) Monocytes # (Manual) PT INR APTT 37.1 H D-Dimer Heparin Anti-Xa Level ABG pH 7.341 L POC ABG pCO2 POC ABG pO2 ABG pO2 108.9 H ABG HCO3 38.9 H ABG O2 Saturation ABG Base Excess 10.6 H ABG Hemoglobin 11.5 L ABG Oxyhemoglobin ABG Sodium ABG Potassium ABG Glucose Oxyhemoglobin Sodium Potassium Chloride Carbon Dioxide BUN Creatinine Glucose POC Glucose Lactic Acid Calcium Phosphorus Magnesium Ferritin Lactate Dehydrogenase C-Reactive Protein NT-Pro-B Natriuret Pep Total Protein Albumin Triglycerides Arterial Blood Glucose Urine pH Ur Specific [place] Coronavirus (PCR) 04/06/21 04/07/21 04/07/21 17:57 00:30 00:32 WBC RBC Hgb Hct MCV MCHC RDW Plt Count Lymph % (Auto) [place] % (Auto) Lymph # (Auto) [place] # (Auto) Seg Neutrophils % Seg Neuts % (Manual) Lymphocytes % (Manual) Monocytes % (Manual) Nucleated RBC % Seg Neutrophils # Seg Neutrophils # Man Lymphocytes # (Manual) Monocytes # (Manual) PT INR APTT D-Dimer Heparin Anti-Xa Level < 0.10 L ABG pH POC ABG pCO2 POC ABG pO2 ABG pO2 ABG HCO3 ABG O2 Saturation ABG Base Excess ABG Hemoglobin ABG Oxyhemoglobin ABG Sodium ABG Potassium ABG Glucose Oxyhemoglobin Sodium Potassium Chloride Carbon Dioxide BUN Creatinine Glucose POC Glucose 151 H 149 H Lactic Acid Calcium Phosphorus Magnesium Ferritin Lactate Dehydrogenase C-Reactive Protein NT-Pro-B Natriuret Pep Total Protein Albumin Triglycerides Arterial Blood Glucose Urine pH Ur Specific [place] Coronavirus (PCR) 04/07/21 04/07/21 04/07/21 05:34 06:08 06:08 WBC RBC 3.20 L Hgb 9.6 L Hct 29.8 L MCV MCHC RDW 16.0 H Plt Count 455 H Lymph % (Auto) [place] % (Auto) Lymph # (Auto) [place] # (Auto) Seg Neutrophils % Seg Neuts % (Manual) Lymphocytes % (Manual) Monocytes % (Manual) Nucleated RBC % Seg Neutrophils # Seg Neutrophils # Man Lymphocytes # (Manual) Monocytes # (Manual) PT INR APTT D-Dimer Heparin Anti-Xa Level ABG pH POC ABG pCO2 POC ABG pO2 ABG pO2 ABG HCO3 ABG O2 Saturation ABG Base Excess ABG Hemoglobin ABG Oxyhemoglobin ABG Sodium ABG Potassium ABG Glucose Oxyhemoglobin Sodium Potassium Chloride Carbon Dioxide 35 H BUN Creatinine 0.5 L Glucose 216 H POC Glucose 182 H Lactic Acid Calcium Phosphorus Magnesium Ferritin Lactate Dehydrogenase C-Reactive Protein NT-Pro-B Natriuret Pep Total Protein Albumin Triglycerides Arterial Blood Glucose Urine pH Ur Specific [place] Coronavirus (PCR) 04/07/21 04/07/21 04/07/21 07:55 11:57 17:12 WBC RBC Hgb Hct MCV MCHC RDW Plt Count Lymph % (Auto) [place] % (Auto) Lymph # (Auto) [place] # (Auto) Seg Neutrophils % Seg Neuts % (Manual) Lymphocytes % (Manual) Monocytes % (Manual) Nucleated RBC % Seg Neutrophils # Seg Neutrophils # Man Lymphocytes # (Manual) Monocytes # (Manual) PT INR APTT D-Dimer Heparin Anti-Xa Level < 0.10 L ABG pH POC ABG pCO2 POC ABG pO2 ABG pO2 ABG HCO3 ABG O2 Saturation ABG Base Excess ABG Hemoglobin ABG Oxyhemoglobin ABG Sodium ABG Potassium ABG Glucose Oxyhemoglobin Sodium Potassium Chloride Carbon Dioxide BUN Creatinine Glucose POC Glucose 182 H 165 H Lactic Acid Calcium Phosphorus Magnesium Ferritin Lactate Dehydrogenase C-Reactive Protein NT-Pro-B Natriuret Pep Total Protein Albumin Triglycerides Arterial Blood Glucose Urine pH Ur Specific [place] Coronavirus (PCR) 04/07/21 04/08/21 04/08/21 19:55 00:16 03:57 WBC RBC Hgb Hct MCV MCHC RDW Plt Count Lymph % (Auto) [place] % (Auto) Lymph # (Auto) [place] # (Auto) Seg Neutrophils % Seg Neuts % (Manual) Lymphocytes % (Manual) Monocytes % (Manual) Nucleated RBC % Seg Neutrophils # Seg Neutrophils # Man Lymphocytes # (Manual) Monocytes # (Manual) PT INR APTT D-Dimer Heparin Anti-Xa Level < 0.10 L ABG pH POC ABG pCO2 POC ABG pO2 ABG pO2 ABG HCO3 ABG O2 Saturation ABG Base Excess ABG Hemoglobin ABG Oxyhemoglobin ABG Sodium ABG Potassium ABG Glucose Oxyhemoglobin Sodium Potassium 5.8 H Chloride 95.5 L Carbon Dioxide 37 H BUN Creatinine 0.5 L Glucose 161 H POC Glucose 175 H Lactic Acid Calcium Phosphorus Magnesium Ferritin Lactate Dehydrogenase C-Reactive Protein NT-Pro-B Natriuret Pep Total Protein Albumin Triglycerides Arterial Blood Glucose Urine pH Ur Specific [place] Coronavirus (PCR) 04/08/21 04/08/21 04/08/21 04:00 05:43 09:26 WBC RBC 3.25 L Hgb 9.9 L Hct 30.8 L MCV 95 H MCHC RDW 16.0 H Plt Count 487 H Lymph % (Auto) [place] % (Auto) Lymph # (Auto) [place] # (Auto) Seg Neutrophils % Seg Neuts % (Manual) Lymphocytes % (Manual) Monocytes % (Manual) Nucleated RBC % Seg Neutrophils # Seg Neutrophils # Man Lymphocytes # (Manual) Monocytes # (Manual) PT INR APTT D-Dimer Heparin Anti-Xa Level ABG pH POC ABG pCO2 POC ABG pO2 ABG pO2 ABG HCO3 ABG O2 Saturation ABG Base Excess ABG Hemoglobin ABG Oxyhemoglobin ABG Sodium ABG Potassium ABG Glucose Oxyhemoglobin Sodium Potassium Chloride Carbon Dioxide BUN Creatinine Glucose POC Glucose 162 H 164 H Lactic Acid Calcium Phosphorus Magnesium Ferritin Lactate Dehydrogenase C-Reactive Protein NT-Pro-B Natriuret Pep Total Protein Albumin Triglycerides Arterial Blood Glucose Urine pH Ur Specific [place] Coronavirus (PCR) 04/08/21 04/08/21 04/08/21 11:53 17:19 20:35 WBC RBC Hgb Hct MCV MCHC RDW Plt Count Lymph % (Auto) [place] % (Auto) Lymph # (Auto) [place] # (Auto) Seg Neutrophils % Seg Neuts % (Manual) Lymphocytes % (Manual) Monocytes % (Manual) Nucleated RBC % Seg Neutrophils # Seg Neutrophils # Man Lymphocytes # (Manual) Monocytes # (Manual) PT INR APTT D-Dimer Heparin Anti-Xa Level ABG pH POC ABG pCO2 POC ABG pO2 ABG pO2 ABG HCO3 ABG O2 Saturation ABG Base Excess ABG Hemoglobin ABG Oxyhemoglobin ABG Sodium ABG Potassium ABG Glucose Oxyhemoglobin Sodium Potassium Chloride Carbon Dioxide BUN Creatinine Glucose POC Glucose 170 H 157 H 190 H Lactic Acid Calcium Phosphorus Magnesium Ferritin Lactate Dehydrogenase C-Reactive Protein NT-Pro-B Natriuret Pep Total Protein Albumin Triglycerides Arterial Blood Glucose Urine pH Ur Specific [place] Coronavirus (PCR) 04/08/21 04/09/21 04/09/21 23:52 04:21 04:21 WBC 11.4 H RBC 2.97 L Hgb 8.9 L Hct 27.8 L MCV MCHC RDW 15.8 H Plt Count 485 H Lymph % (Auto) [place] % (Auto) Lymph # (Auto) [place] # (Auto) Seg Neutrophils % Seg Neuts % (Manual) Lymphocytes % (Manual) Monocytes % (Manual) Nucleated RBC % Seg Neutrophils # Seg Neutrophils # Man Lymphocytes # (Manual) Monocytes # (Manual) PT INR APTT D-Dimer Heparin Anti-Xa Level ABG pH POC ABG pCO2 POC ABG pO2 ABG pO2 ABG HCO3 ABG O2 Saturation ABG Base Excess ABG Hemoglobin ABG Oxyhemoglobin ABG Sodium ABG Potassium ABG Glucose Oxyhemoglobin Sodium Potassium Chloride 97.1 L Carbon Dioxide 40 H BUN 21 H Creatinine 0.5 L Glucose 149 H POC Glucose 170 H Lactic Acid Calcium Phosphorus 1.90 L D Magnesium Ferritin Lactate Dehydrogenase C-Reactive Protein NT-Pro-B Natriuret Pep Total Protein Albumin Triglycerides Arterial Blood Glucose Urine pH Ur Specific [place] Coronavirus (PCR) 04/09/21 04/09/21 04/09/21 05:27 11:55 17:11 WBC RBC Hgb Hct MCV MCHC RDW Plt Count Lymph % (Auto) [place] % (Auto) Lymph # (Auto) [place] # (Auto) Seg Neutrophils % Seg Neuts % (Manual) Lymphocytes % (Manual) Monocytes % (Manual) Nucleated RBC % Seg Neutrophils # Seg Neutrophils # Man Lymphocytes # (Manual) Monocytes # (Manual) PT INR APTT D-Dimer Heparin Anti-Xa Level ABG pH POC ABG pCO2 POC ABG pO2 ABG pO2 ABG HCO3 ABG O2 Saturation ABG Base Excess ABG Hemoglobin ABG Oxyhemoglobin ABG Sodium ABG Potassium ABG Glucose Oxyhemoglobin Sodium Potassium Chloride Carbon Dioxide BUN Creatinine Glucose POC Glucose 144 H 190 H 163 H Lactic Acid Calcium Phosphorus Magnesium Ferritin Lactate Dehydrogenase C-Reactive Protein NT-Pro-B Natriuret Pep Total Protein Albumin Triglycerides Arterial Blood Glucose Urine pH Ur Specific [place] Coronavirus (PCR) 04/09/21 04/09/21 04/09/21 20:10 21:12 23:33 WBC RBC Hgb Hct MCV MCHC RDW Plt Count Lymph % (Auto) [place] % (Auto) Lymph # (Auto) [place] # (Auto) Seg Neutrophils % Seg Neuts % (Manual) Lymphocytes % (Manual) Monocytes % (Manual) Nucleated RBC % Seg Neutrophils # Seg Neutrophils # Man Lymphocytes # (Manual) Monocytes # (Manual) PT INR APTT D-Dimer Heparin Anti-Xa Level ABG pH POC ABG pCO2 POC ABG pO2 ABG pO2 68.1 L ABG HCO3 41.3 H ABG O2 Saturation ABG Base Excess 14.6 H ABG Hemoglobin 10.2 L ABG Oxyhemoglobin ABG Sodium ABG Potassium ABG Glucose Oxyhemoglobin 94.7 L Sodium Potassium Chloride Carbon Dioxide BUN Creatinine Glucose POC Glucose 163 H 164 H Lactic Acid Calcium Phosphorus Magnesium Ferritin Lactate Dehydrogenase C-Reactive Protein NT-Pro-B Natriuret Pep Total Protein Albumin Triglycerides Arterial Blood Glucose Urine pH Ur Specific [place] Coronavirus (PCR) 04/10/21 04/10/21 04/10/21 05:26 11:41 13:00 WBC RBC 3.09 L Hgb 9.3 L Hct 28.3 L MCV MCHC RDW 15.8 H Plt Count 480 H Lymph % (Auto) [place] % (Auto) Lymph # (Auto) [place] # (Auto) Seg Neutrophils % Seg Neuts % (Manual) Lymphocytes % (Manual) Monocytes % (Manual) Nucleated RBC % Seg Neutrophils # Seg Neutrophils # Man Lymphocytes # (Manual) Monocytes # (Manual) PT INR APTT D-Dimer Heparin Anti-Xa Level ABG pH POC ABG pCO2 POC ABG pO2 ABG pO2 ABG HCO3 ABG O2 Saturation ABG Base Excess ABG Hemoglobin ABG Oxyhemoglobin ABG Sodium ABG Potassium ABG Glucose Oxyhemoglobin Sodium Potassium Chloride Carbon Dioxide BUN Creatinine Glucose POC Glucose 172 H 150 H Lactic Acid Calcium Phosphorus Magnesium Ferritin Lactate Dehydrogenase C-Reactive Protein NT-Pro-B Natriuret Pep Total Protein Albumin Triglycerides Arterial Blood Glucose Urine pH Ur Specific [place] Coronavirus (PCR) 04/10/21 04/10/21 04/10/21 13:00 17:46 21:37 WBC RBC Hgb Hct MCV MCHC RDW Plt Count Lymph % (Auto) [place] % (Auto) Lymph # (Auto) [place] # (Auto) Seg Neutrophils % Seg Neuts % (Manual) Lymphocytes % (Manual) Monocytes % (Manual) Nucleated RBC % Seg Neutrophils # Seg Neutrophils # Man Lymphocytes # (Manual) Monocytes # (Manual) PT INR APTT D-Dimer Heparin Anti-Xa Level ABG pH POC ABG pCO2 POC ABG pO2 ABG pO2 ABG HCO3 ABG O2 Saturation ABG Base Excess ABG Hemoglobin ABG Oxyhemoglobin ABG Sodium ABG Potassium ABG Glucose Oxyhemoglobin Sodium Potassium Chloride 96.4 L Carbon Dioxide 34 H BUN Creatinine 0.5 L Glucose 165 H POC Glucose 165 H 166 H Lactic Acid Calcium Phosphorus Magnesium Ferritin Lactate Dehydrogenase C-Reactive Protein NT-Pro-B Natriuret Pep Total Protein Albumin Triglycerides Arterial Blood Glucose Urine pH Ur Specific [place] Coronavirus (PCR) 04/10/21 04/11/21 04/11/21 23:56 04:30 05:39 WBC 11.5 H RBC 3.02 L Hgb 8.9 L Hct 27.8 L MCV MCHC RDW 16.0 H Plt Count 505 H Lymph % (Auto) [place] % (Auto) Lymph # (Auto) [place] # (Auto) Seg Neutrophils % Seg Neuts % (Manual) Lymphocytes % (Manual) Monocytes % (Manual) Nucleated RBC % Seg Neutrophils # Seg Neutrophils # Man Lymphocytes # (Manual) Monocytes # (Manual) PT INR APTT D-Dimer Heparin Anti-Xa Level ABG pH POC ABG pCO2 POC ABG pO2 ABG pO2 ABG HCO3 ABG O2 Saturation ABG Base Excess ABG Hemoglobin ABG Oxyhemoglobin ABG Sodium ABG Potassium ABG Glucose Oxyhemoglobin Sodium Potassium Chloride Carbon Dioxide BUN Creatinine Glucose POC Glucose 156 H 164 H Lactic Acid Calcium Phosphorus Magnesium Ferritin Lactate Dehydrogenase C-Reactive Protein NT-Pro-B Natriuret Pep Total Protein Albumin Triglycerides Arterial Blood Glucose Urine pH Ur Specific [place] Coronavirus (PCR) 04/11/21 04/11/21 04/11/21 06:47 06:47 11:29 WBC RBC 3.35 L Hgb 9.8 L Hct 30.7 L MCV MCHC RDW 16.3 H Plt Count 520 H Lymph % (Auto) [place] % (Auto) Lymph # (Auto) [place] # (Auto) Seg Neutrophils % Seg Neuts % (Manual) 76.0 H Lymphocytes % (Manual) 10.0 L Monocytes % (Manual) Nucleated RBC % Seg Neutrophils # Seg Neutrophils # Man 8.3 H Lymphocytes # (Manual) 1.1 L Monocytes # (Manual) PT INR APTT D-Dimer Heparin Anti-Xa Level ABG pH POC ABG pCO2 POC ABG pO2 ABG pO2 ABG HCO3 ABG O2 Saturation ABG Base Excess ABG Hemoglobin ABG Oxyhemoglobin ABG Sodium ABG Potassium ABG Glucose Oxyhemoglobin Sodium Potassium Chloride 97.7 L Carbon Dioxide 34 H BUN Creatinine 0.4 L Glucose 178 H POC Glucose 170 H Lactic Acid Calcium Phosphorus Magnesium Ferritin Lactate Dehydrogenase C-Reactive Protein NT-Pro-B Natriuret Pep Total Protein Albumin Triglycerides Arterial Blood Glucose Urine pH Ur Specific [place] Coronavirus (PCR) 04/11/21 04/11/21 04/11/21 18:17 18:17 18:17 WBC RBC 3.22 L Hgb 9.5 L Hct 29.8 L MCV MCHC RDW 16.0 H Plt Count Lymph % (Auto) [place] % (Auto) Lymph # (Auto) [place] # (Auto) Seg Neutrophils % Seg Neuts % (Manual) Lymphocytes % (Manual) Monocytes % (Manual) Nucleated RBC % Seg Neutrophils # Seg Neutrophils # Man Lymphocytes # (Manual) Monocytes # (Manual) PT INR APTT 61.1 H* D-Dimer Heparin Anti-Xa Level ABG pH POC ABG pCO2 POC ABG pO2 ABG pO2 ABG HCO3 ABG O2 Saturation ABG Base Excess ABG Hemoglobin ABG Oxyhemoglobin ABG Sodium ABG Potassium ABG Glucose Oxyhemoglobin Sodium Potassium Chloride Carbon Dioxide BUN Creatinine 0.3 L Glucose POC Glucose Lactic Acid Calcium Phosphorus Magnesium Ferritin Lactate Dehydrogenase C-Reactive Protein NT-Pro-B Natriuret Pep Total Protein Albumin Triglycerides Arterial Blood Glucose Urine pH Ur Specific [place] Coronavirus (PCR) 04/11/21 04/12/21 04/12/21 18:25 00:19 05:11 WBC RBC 2.92 L Hgb 8.6 L Hct 26.9 L MCV MCHC RDW 16.3 H Plt Count 460 H Lymph % (Auto) [place] % (Auto) Lymph # (Auto) [place] # (Auto) Seg Neutrophils % Seg Neuts % (Manual) Lymphocytes % (Manual) Monocytes % (Manual) Nucleated RBC % Seg Neutrophils # Seg Neutrophils # Man Lymphocytes # (Manual) Monocytes # (Manual) PT INR APTT D-Dimer Heparin Anti-Xa Level ABG pH POC ABG pCO2 POC ABG pO2 ABG pO2 ABG HCO3 ABG O2 Saturation ABG Base Excess ABG Hemoglobin ABG Oxyhemoglobin ABG Sodium ABG Potassium ABG Glucose Oxyhemoglobin Sodium Potassium Chloride Carbon Dioxide BUN Creatinine Glucose POC Glucose 167 H 128 H Lactic Acid Calcium Phosphorus Magnesium Ferritin Lactate Dehydrogenase C-Reactive Protein NT-Pro-B Natriuret Pep Total Protein Albumin Triglycerides Arterial Blood Glucose Urine pH Ur Specific [place] Coronavirus (PCR) 04/12/21 04/12/21 04/12/21 05:11 05:11 06:23 WBC RBC Hgb Hct MCV MCHC RDW Plt Count Lymph % (Auto) [place] % (Auto) Lymph # (Auto) [place] # (Auto) Seg Neutrophils % Seg Neuts % (Manual) Lymphocytes % (Manual) Monocytes % (Manual) Nucleated RBC % Seg Neutrophils # Seg Neutrophils # Man Lymphocytes # (Manual) Monocytes # (Manual) PT INR APTT D-Dimer Heparin Anti-Xa Level 1.03 H ABG pH POC ABG pCO2 POC ABG pO2 ABG pO2 ABG HCO3 ABG O2 Saturation ABG Base Excess ABG Hemoglobin ABG Oxyhemoglobin ABG Sodium ABG Potassium ABG Glucose Oxyhemoglobin Sodium Potassium Chloride Carbon Dioxide 34 H BUN Creatinine 0.3 L Glucose 153 H POC Glucose 162 H Lactic Acid Calcium Phosphorus Magnesium Ferritin Lactate Dehydrogenase C-Reactive Protein NT-Pro-B Natriuret Pep Total Protein Albumin Triglycerides Arterial Blood Glucose Urine pH Ur Specific [place] Coronavirus (PCR) 04/12/21 04/12/21 04/12/21 09:45 11:08 15:56 WBC RBC Hgb Hct MCV MCHC RDW Plt Count Lymph % (Auto) [place] % (Auto) Lymph # (Auto) [place] # (Auto) Seg Neutrophils % Seg Neuts % (Manual) Lymphocytes % (Manual) Monocytes % (Manual) Nucleated RBC % Seg Neutrophils # Seg Neutrophils # Man Lymphocytes # (Manual) Monocytes # (Manual) PT INR APTT D-Dimer Heparin Anti-Xa Level ABG pH POC ABG pCO2 POC ABG pO2 ABG pO2 70.8 L ABG HCO3 41.0 H ABG O2 Saturation ABG Base Excess 13.7 H ABG Hemoglobin 8.3 L ABG Oxyhemoglobin ABG Sodium ABG Potassium ABG Glucose Oxyhemoglobin 94.0 L Sodium Potassium Chloride Carbon Dioxide BUN Creatinine Glucose POC Glucose 174 H 146 H Lactic Acid Calcium Phosphorus Magnesium Ferritin Lactate Dehydrogenase C-Reactive Protein NT-Pro-B Natriuret Pep Total Protein Albumin Triglycerides Arterial Blood Glucose Urine pH Ur Specific [place] Coronavirus (PCR) 04/12/21 04/12/21 04/13/21 21:55 23:25 04:34 WBC 12.5 H RBC 2.97 L Hgb 8.9 L Hct 27.3 L MCV MCHC RDW 16.4 H Plt Count 470 H Lymph % (Auto) [place] % (Auto) Lymph # (Auto) [place] # (Auto) Seg Neutrophils % Seg Neuts % (Manual) Lymphocytes % (Manual) Monocytes % (Manual) Nucleated RBC % Seg Neutrophils # Seg Neutrophils # Man Lymphocytes # (Manual) Monocytes # (Manual) PT INR APTT D-Dimer Heparin Anti-Xa Level ABG pH POC ABG pCO2 POC ABG pO2 ABG pO2 ABG HCO3 ABG O2 Saturation ABG Base Excess ABG Hemoglobin ABG Oxyhemoglobin ABG Sodium ABG Potassium ABG Glucose Oxyhemoglobin Sodium Potassium Chloride Carbon Dioxide BUN Creatinine Glucose POC Glucose 142 H 170 H Lactic Acid Calcium Phosphorus Magnesium Ferritin Lactate Dehydrogenase C-Reactive Protein NT-Pro-B Natriuret Pep Total Protein Albumin Triglycerides Arterial Blood Glucose Urine pH Ur Specific [place] Coronavirus (PCR) 04/13/21 04/13/21 04/13/21 04:34 05:17 11:14 WBC RBC Hgb Hct MCV MCHC RDW Plt Count Lymph % (Auto) [place] % (Auto) Lymph # (Auto) [place] # (Auto) Seg Neutrophils % Seg Neuts % (Manual) Lymphocytes % (Manual) Monocytes % (Manual) Nucleated RBC % Seg Neutrophils # Seg Neutrophils # Man Lymphocytes # (Manual) Monocytes # (Manual) PT INR APTT D-Dimer Heparin Anti-Xa Level ABG pH POC ABG pCO2 POC ABG pO2 ABG pO2 ABG HCO3 ABG O2 Saturation ABG Base Excess ABG Hemoglobin ABG Oxyhemoglobin ABG Sodium ABG Potassium ABG Glucose Oxyhemoglobin Sodium Potassium Chloride 96.6 L Carbon Dioxide 41 H* D BUN Creatinine 0.3 L Glucose 171 H POC Glucose 141 H 149 H Lactic Acid Calcium Phosphorus Magnesium Ferritin Lactate Dehydrogenase C-Reactive Protein NT-Pro-B Natriuret Pep Total Protein Albumin Triglycerides Arterial Blood Glucose Urine pH Ur Specific [place] Coronavirus (PCR) 04/13/21 04/13/21 04/14/21 15:51 23:35 04:32 WBC 13.8 H RBC 2.64 L Hgb 8.0 L Hct 24.1 L MCV MCHC RDW 16.1 H Plt Count Lymph % (Auto) [place] % (Auto) Lymph # (Auto) [place] # (Auto) Seg Neutrophils % Seg Neuts % (Manual) Lymphocytes % (Manual) Monocytes % (Manual) Nucleated RBC % Seg Neutrophils # Seg Neutrophils # Man Lymphocytes # (Manual) Monocytes # (Manual) PT INR APTT D-Dimer Heparin Anti-Xa Level ABG pH POC ABG pCO2 POC ABG pO2 ABG pO2 ABG HCO3 ABG O2 Saturation ABG Base Excess ABG Hemoglobin ABG Oxyhemoglobin ABG Sodium ABG Potassium ABG Glucose Oxyhemoglobin Sodium Potassium Chloride Carbon Dioxide BUN Creatinine Glucose POC Glucose 136 H 167 H Lactic Acid Calcium Phosphorus Magnesium Ferritin Lactate Dehydrogenase C-Reactive Protein NT-Pro-B Natriuret Pep Total Protein Albumin Triglycerides Arterial Blood Glucose Urine pH Ur Specific [place] Coronavirus (PCR) 04/14/21 04/14/21 04/14/21 04:32 05:18 11:03 WBC RBC Hgb Hct MCV MCHC RDW Plt Count Lymph % (Auto) [place] % (Auto) Lymph # (Auto) [place] # (Auto) Seg Neutrophils % Seg Neuts % (Manual) Lymphocytes % (Manual) Monocytes % (Manual) Nucleated RBC % Seg Neutrophils # Seg Neutrophils # Man Lymphocytes # (Manual) Monocytes # (Manual) PT INR APTT D-Dimer Heparin Anti-Xa Level ABG pH POC ABG pCO2 POC ABG pO2 ABG pO2 ABG HCO3 ABG O2 Saturation ABG Base Excess ABG Hemoglobin ABG Oxyhemoglobin ABG Sodium ABG Potassium ABG Glucose Oxyhemoglobin Sodium Potassium Chloride 95.5 L Carbon Dioxide 38 H BUN Creatinine 0.4 L Glucose 141 H POC Glucose 140 H 143 H Lactic Acid Calcium Phosphorus Magnesium Ferritin Lactate Dehydrogenase C-Reactive Protein NT-Pro-B Natriuret Pep Total Protein Albumin Triglycerides Arterial Blood Glucose Urine pH Ur Specific [place] Coronavirus (PCR) 04/14/21 04/14/21 04/14/21 16:38 23:46 Unknown WBC RBC Hgb Hct MCV MCHC RDW Plt Count Lymph % (Auto) [place] % (Auto) Lymph # (Auto) [place] # (Auto) Seg Neutrophils % Seg Neuts % (Manual) Lymphocytes % (Manual) Monocytes % (Manual) Nucleated RBC % Seg Neutrophils # Seg Neutrophils # Man Lymphocytes # (Manual) Monocytes # (Manual) PT INR APTT D-Dimer Heparin Anti-Xa Level ABG pH POC ABG pCO2 POC ABG pO2 ABG pO2 ABG HCO3 ABG O2 Saturation ABG Base Excess ABG Hemoglobin ABG Oxyhemoglobin ABG Sodium ABG Potassium ABG Glucose Oxyhemoglobin Sodium Potassium Chloride Carbon Dioxide BUN Creatinine Glucose POC Glucose 157 H 155 H Lactic Acid Calcium Phosphorus Magnesium Ferritin Lactate Dehydrogenase C-Reactive Protein NT-Pro-B Natriuret Pep Total Protein Albumin Triglycerides Arterial Blood Glucose Urine pH 8.0 H Ur Specific [place] Coronavirus (PCR) 04/15/21 04/15/21 04/15/21 04:44 04:44 05:52 WBC 15.8 H RBC 2.96 L Hgb 8.9 L Hct 27.1 L MCV MCHC RDW 16.5 H Plt Count 507 H Lymph % (Auto) [place] % (Auto) Lymph # (Auto) [place] # (Auto) Seg Neutrophils % Seg Neuts % (Manual) Lymphocytes % (Manual) Monocytes % (Manual) Nucleated RBC % Seg Neutrophils # Seg Neutrophils # Man Lymphocytes # (Manual) Monocytes # (Manual) PT INR APTT D-Dimer Heparin Anti-Xa Level ABG pH POC ABG pCO2 POC ABG pO2 ABG pO2 ABG HCO3 ABG O2 Saturation ABG Base Excess ABG Hemoglobin ABG Oxyhemoglobin ABG Sodium ABG Potassium ABG Glucose Oxyhemoglobin Sodium Potassium Chloride 96.9 L Carbon Dioxide 38 H BUN Creatinine 0.4 L Glucose 163 H POC Glucose 167 H Lactic Acid Calcium Phosphorus Magnesium Ferritin Lactate Dehydrogenase C-Reactive Protein NT-Pro-B Natriuret Pep Total Protein Albumin Triglycerides Arterial Blood Glucose Urine pH Ur Specific [place] Coronavirus (PCR) 04/15/21 11:35 WBC RBC Hgb Hct MCV MCHC RDW Plt Count Lymph % (Auto) [place] % (Auto) Lymph # (Auto) [place] # (Auto) Seg Neutrophils % Seg Neuts % (Manual) Lymphocytes % (Manual) Monocytes % (Manual) Nucleated RBC % Seg Neutrophils # Seg Neutrophils # Man Lymphocytes # (Manual) Monocytes # (Manual) PT INR APTT D-Dimer Heparin Anti-Xa Level ABG pH POC ABG pCO2 POC ABG pO2 ABG pO2 ABG HCO3 ABG O2 Saturation ABG Base Excess ABG Hemoglobin ABG Oxyhemoglobin ABG Sodium ABG Potassium ABG Glucose Oxyhemoglobin Sodium Potassium Chloride Carbon Dioxide BUN Creatinine Glucose POC Glucose 179 H Lactic Acid Calcium Phosphorus Magnesium Ferritin Lactate Dehydrogenase C-Reactive Protein NT-Pro-B Natriuret Pep Total Protein Albumin Triglycerides Arterial Blood Glucose Urine pH Ur Specific [place] Coronavirus (PCR) Chest x-ray: image reviewed Allied health notes reviewed: RT
[2021-04-15] MEDS ORDERED: metOLazone 2.5 MG TAB PO ONE (16:30)
[2021-04-15] MEDS ORDERED: FUROSEMIDE 40 MG/4 ML INJ IV ONE (17:00)
[2021-04-15] MEDS: VANCOMYCIN 1,750 MG in SODIUM CHLORIDE 0.9% 500 ML 500 ML IV SCH (17:58)
[2021-04-15 18:41] LABS: ABG Base Excess 15.2 mmol/L (-2.0-3.0); ABG HCO3 40.6 mmol/L (20.0-26.0); ABG Methemoglobin 0.4 % (0.0-1.5); ABG PCO2 56.1 mm Hg; ABG PH 7.477 pH Units (7.350-7.450); ABG PO2 81.2 mm Hg (80.0-90.0)
[2021-04-15] MEDS: INSULIN GLARGINE 100 UNITS/ML SUB-Q SCH (21:35)
[2021-04-16] MEDS: INSULIN LISPRO 100 UNIT/ML SUB-Q SCH ×4 (00:26→17:40)
[2021-04-16] MEDS: VANCOMYCIN 1,750 MG in SODIUM CHLORIDE 0.9% 500 ML 500 ML IV SCH ×2 (02:42→14:25)
[2021-04-16] MEDS: ACETAMINOPHEN 325 MG TAB PO PRN (04:56)
[2021-04-16 05:16] LABS: Blood Urea Nitrogen 24 mg/dL (9-20); Calcium 9.6 mg/dL (8.4-10.2); Hemolysis Index 10
[2021-04-16 05:18] LABS: BUN/Creatinine Ratio 60
[2021-04-16 05:23] LABS: ABG Base Excess 15.3 mmol/L (-2.0-3.0); ABG HCO3 40.6 mmol/L (20.0-26.0); ABG Methemoglobin 0.6 % (0.0-1.5); ABG Oxygen Saturation 97.2 % (95.0-99.0); ABG PCO2 54.8 mm Hg; ABG PH 7.487 pH Units (7.350-7.450); ABG PO2 75.4 mm Hg (80.0-90.0)
[2021-04-16 05:46] LABS: Hematocrit 30.2 % (35.5-45.6); Hemoglobin 9.5 gm/dl (11.8-15.2); Mean Corpuscular HGB Conc 31 % (32-34); Mean Corpuscular Volume 93 fl (84-94); Platelet Count 416 K/mm3 (140-440); Red Blood Count 3.26 M/mm3 (3.65-5.03); Red Cell Distribution Width 16.2 % (13.2-15.2)
[2021-04-16] MEDS: CEFEPIME/NS 2 GM/100 ML 2 GM/100 ML BAG IV SCH ×3 (06:14→21:18)
[2021-04-16] MEDS: hydrALAZINE 25 MG TAB PO SCH ×3 (06:15→21:17)
[2021-04-16] MEDS: BUDESONIDE 0.5 MG/2 ML NEBU IH SCH ×2 (08:45→20:09)
[2021-04-16] MEDS: ARFORMOTEROL 15 MCG/2 ML NEBU IH SCH ×2 (08:45→20:09)
[2021-04-16] MEDS: APIXABAN 5 MG TAB PO SCH ×2 (09:38→21:18)
[2021-04-16] MEDS: FUROSEMIDE 40 MG/4 ML INJ IV SCH (09:38)
[2021-04-16] MEDS: METOPROLOL TARTRATE 25 MG TAB PO SCH ×2 (09:38→21:18)
[2021-04-16] MEDS: POLYETHYLENE GLYCOL 3350 17 GM POWDER FEEDTUBE SCH (09:39)
[2021-04-16] MEDS: DOXAZOSIN 1 MG TAB PO SCH ×2 (09:39→21:18)
[2021-04-16] MEDS: FAMOTIDINE 20 MG TAB FEEDTUBE SCH ×2 (09:39→21:19)
[2021-04-16] MEDS: amLODIPine 5 MG TAB PO SCH (09:41)
[2021-04-16] MEDS: SENNOSIDES/DOCUSATE SODIUM 8.6/50 MG TAB FEEDTUBE SCH ×2 (09:42→21:19)
--- NOTE | 2021-04-16 14:14 | Progress Note ---
Assessment and Plan Acute hypoxemic respiratory failure, on MVS COVID-19 infection Bilateral pneumonia Obesity BMI 36 Hypertension Leukocytosis Possible venous thromboembolic phenomena with significantly elevated D-dimers DM II Elevated serum inflammatory markers to include CRP levels, ferritin and LDH Daily assessment to wean,continue daily SAT and SBT Trach care, airway clearance, secretion management Diuretics to keep him negative fluid balance,while he is on diuretic therapy monitor hemodynamics Continue to monitor and replete CXR, ABG as clinically indicated Sputum cultures pending-Staph aurues Urine and blood cultures pending Continue with trending temperature curve and WCC Continue with antibiotics per ID service - VAP bundle addressed, aspiration precautions HOB>40 - continue to titrate supplemental oxygen to keep SpO2 88-90% - continue bronchodilators with pulmonary hygiene per RT - continue accuchecks with glycemic control per SSI (While critically ill target blood glucose of 140-180 mg/dL; avoid hypoglycemia) - avoid nephrotoxins, renally dose all medications - avoid benzodiazepines, reduce the possibility of delirium - sedation target for RASS -1 to -2 - prn analgesia per pain score - Maintenance of sleep-wake cycle, avoid delirium -Stress ulcer prophylaxis -Therapeutic anticoagulation- on Apixaban - mobility, off loading and frequent turning per facility protocol for pressure ulcer prevention - Monitor hemodynamics closely - continue other care per attending / other consultants COVID SPECIFIC INTERVENTIONS - s/p Remdesivir per ID/Pulmonary developed protocols - s/p systemic steroids for severe COVID-19 infection CONDITION: CRITICAL PROGNOSIS: GUARDED CODE STATUS: FULL CODE The high probability of a clinically significant, sudden or life-threatening deterioration of the respiratory, cardiovascular system(s) required my full and direct attention, intervention and personal management. The aggregate critical care time was [35] minutes without overlap. Time includes spent on; [x] Data Review and interpretation [x] Patient assessment and monitoring of vital signs [x] Documentation [x] Medication orders and management Subjective Date of service: 04/16/21 Principal diagnosis: COVID-19 infection; DM II; Bilateral pneumonia; Obesity; HTN Interval history: Patient is seen today for: Acute hypoxemic respiratory failure; COVID-19 infection; DM II; Bilateral pneumonia; Obesity; HTN Seen and examined at bedside; 24hour events reviewed; nursing and respiratory care staff consulted; no adverse overnight events reported to me; resting in bed; on MVS , currently on CPAP 12/02; opened eyes to voice and tactile stimulus No fevers, no vomiting Objective Vital Signs - 12hr 04/16/21 04/16/21 04/16/21 02:31 03:00 03:31 Temperature Pulse Rate 87 89 90 Pulse Rate [ Bilateral Throughout] Respiratory 13 22 21 Rate Respiratory Rate [Bilateral Throughout] Blood Pressure 110/68 106/67 106/67 O2 Sat by Pulse 91 100 98 Oximetry O2 Sat by Pulse Oximetry [ Assessment] 04/16/21 04/16/21 04/16/21 03:57 04:00 04:31 Temperature 101.0 F H Pulse Rate 90 89 Pulse Rate [ Bilateral Throughout] Respiratory 29 H 20 Rate Respiratory Rate [Bilateral Throughout] Blood Pressure 115/71 115/71 O2 Sat by Pulse 98 97 Oximetry O2 Sat by Pulse Oximetry [ Assessment] 04/16/21 04/16/21 04/16/21 04:50 05:00 05:31 Temperature Pulse Rate 89 89 92 H Pulse Rate [ Bilateral Throughout] Respiratory 27 H 29 H Rate Respiratory Rate [Bilateral Throughout] Blood Pressure 115/71 110/63 110/63 O2 Sat by Pulse 98 98 99 Oximetry O2 Sat by Pulse Oximetry [ Assessment] 04/16/21 04/16/21 04/16/21 06:00 06:15 06:30 Temperature Pulse Rate 89 89 87 Pulse Rate [ Bilateral Throughout] Respiratory 26 H 27 H Rate Respiratory Rate [Bilateral Throughout] Blood Pressure 113/68 113/68 113/68 O2 Sat by Pulse 99 99 Oximetry O2 Sat by Pulse Oximetry [ Assessment] 04/16/21 04/16/21 04/16/21 07:00 07:15 07:22 Temperature 99.4 F Pulse Rate 88 Pulse Rate [ Bilateral Throughout] Respiratory 23 Rate Respiratory Rate [Bilateral Throughout] Blood Pressure 108/62 O2 Sat by Pulse 99 98 Oximetry O2 Sat by Pulse Oximetry [ Assessment] 04/16/21 04/16/21 04/16/21 07:30 08:00 08:30 Temperature Pulse Rate 89 89 90 Pulse Rate [ Bilateral Throughout] Respiratory 28 H 27 H 28 H Rate Respiratory Rate [Bilateral Throughout] Blood Pressure 108/62 103/60 103/60 O2 Sat by Pulse 99 97 99 Oximetry O2 Sat by Pulse Oximetry [ Assessment] 04/16/21 04/16/21 04/16/21 08:45 09:00 09:20 Temperature Pulse Rate 88 87 93 H Pulse Rate [ 84 Bilateral Throughout] Respiratory 27 H 34 H Rate Respiratory 16 Rate [Bilateral Throughout] Blood Pressure 110/60 110/60 97/64 O2 Sat by Pulse 99 99 100 Oximetry O2 Sat by Pulse 99 Oximetry [ Assessment] 04/16/21 04/16/21 04/16/21 09:30 09:38 09:39 Temperature Pulse Rate 90 90 90 Pulse Rate [ Bilateral Throughout] Respiratory 29 H Rate Respiratory Rate [Bilateral Throughout] Blood Pressure 103/60 110/60 110/60 O2 Sat by Pulse 99 Oximetry O2 Sat by Pulse Oximetry [ Assessment] 04/16/21 04/16/21 04/16/21 09:41 10:00 11:24 Temperature 98.5 F Pulse Rate 90 92 H Pulse Rate [ Bilateral Throughout] Respiratory 33 H Rate Respiratory Rate [Bilateral Throughout] Blood Pressure 110/60 110/60 O2 Sat by Pulse 100 Oximetry O2 Sat by Pulse Oximetry [ Assessment] 04/16/21 04/16/21 11:43 13:38 Temperature Pulse Rate 100 H 99 H Pulse Rate [ Bilateral Throughout] Respiratory 35 H Rate Respiratory Rate [Bilateral Throughout] Blood Pressure 123/79 114/67 O2 Sat by Pulse 97 Oximetry O2 Sat by Pulse Oximetry [ Assessment] Constitutional: no acute distress, other (elderly obese male with mildly increased respiratory effort at rest) Eyes: non-icteric, other (subconjunctival hemorrhage) ENT: oropharynx moist, other (+ midline tracheostomy) Neck: supple, no lymphadenopathy, no JVD, other (large circumference) Effort: mildly labored Ascultation: Bilateral: diminished breath sounds, rales, rhonchi Percussion: Bilateral: not dull Cardiovascular: regular rate and rhythm, other (tachycardia, S1,S2) Gastrointestinal: normoactive bowel sounds, soft, non-tender, non-distended (protuberant), other (Good in place) Integumentary: normal Extremities: no cyanosis, pulses normal, no ischemia or petechiae, edema (upper extremities), other Neurologic: pupils equal and round, other (sedated) Psychiatric: other (unable to assess re: AMS) CBC and BMP: 04/17/21 04:25 04/17/21 04:25 ABG, PT/INR, D-dimer: ABG ABG pH 7.487 pH Units (7.350-7.450) H 04/16/21 04:55 POC ABG pCO2 57.4 mmHg (32.0-48.0) H 04/06/21 04:49 ABG pCO2 54.8 mm Hg 04/16/21 04:55 POC ABG pO2 55.1 mmHg (83-108) L 04/06/21 04:49 ABG pO2 75.4 mm Hg (80.0-90.0) L 04/16/21 04:55 POC ABG HCO3 36.2 04/06/21 04:49 ABG O2 Saturation 97.2 % (95.0-99.0) 04/16/21 04:55 PT/INR, D-dimer PT 13.4 Sec. (12.2-14.9) 04/11/21 18:17 INR 0.92 (0.87-1.13) 04/11/21 18:17 D-Dimer 1359.12 ng/mlDDU (0-234) H 03/17/21 04:40 Abnormal lab findings: Abnormal Labs 03/08/21 03/08/21 03/08/21 20:24 20:24 20:24 WBC 22.6 H RBC 5.44 H Hgb 15.7 H Hct 49.2 H MCV MCHC RDW Plt Count Lymph % (Auto) [place] % (Auto) Lymph # (Auto) [place] # (Auto) Seg Neutrophils % Seg Neuts % (Manual) 83.0 H Lymphocytes % (Manual) 9.0 L Monocytes % (Manual) 8.0 H Nucleated RBC % Seg Neutrophils # Seg Neutrophils # Man 18.8 H Lymphocytes # (Manual) Monocytes # (Manual) 1.8 H PT 16.1 H INR 1.17 H APTT D-Dimer > 76948 H Heparin Anti-Xa Level ABG pH POC ABG pCO2 POC ABG pO2 ABG pO2 ABG HCO3 ABG O2 Saturation ABG Base Excess ABG Hemoglobin ABG Oxyhemoglobin ABG Sodium ABG Potassium ABG Glucose Oxyhemoglobin Sodium 136 L Potassium Chloride 93.9 L Carbon Dioxide BUN 29 H Creatinine Glucose 208 H POC Glucose Lactic Acid Calcium Phosphorus Magnesium Ferritin Lactate Dehydrogenase 624 H C-Reactive Protein 18.00 H NT-Pro-B Natriuret Pep 1053 H Total Protein Albumin Triglycerides Arterial Blood Glucose Urine pH Ur Specific [place] Coronavirus (PCR) 03/08/21 03/08/21 03/09/21 20:24 20:24 04:10 WBC RBC Hgb Hct MCV MCHC RDW Plt Count Lymph % (Auto) [place] % (Auto) Lymph # (Auto) [place] # (Auto) Seg Neutrophils % Seg Neuts % (Manual) Lymphocytes % (Manual) Monocytes % (Manual) Nucleated RBC % Seg Neutrophils # Seg Neutrophils # Man Lymphocytes # (Manual) Monocytes # (Manual) PT INR APTT D-Dimer Heparin Anti-Xa Level ABG pH POC ABG pCO2 POC ABG pO2 ABG pO2 ABG HCO3 ABG O2 Saturation ABG Base Excess ABG Hemoglobin ABG Oxyhemoglobin ABG Sodium ABG Potassium ABG Glucose Oxyhemoglobin Sodium Potassium Chloride Carbon Dioxide BUN Creatinine Glucose POC Glucose Lactic Acid 2.10 H* Calcium Phosphorus Magnesium Ferritin 877.5 H Lactate Dehydrogenase C-Reactive Protein NT-Pro-B Natriuret Pep Total Protein Albumin Triglycerides Arterial Blood Glucose Urine pH Ur Specific [place] 1.041 H Coronavirus (PCR) 03/09/21 03/09/21 03/09/21 07:46 08:00 13:01 WBC RBC Hgb Hct MCV MCHC RDW Plt Count Lymph % (Auto) [place] % (Auto) Lymph # (Auto) [place] # (Auto) Seg Neutrophils % Seg Neuts % (Manual) Lymphocytes % (Manual) Monocytes % (Manual) Nucleated RBC % Seg Neutrophils # Seg Neutrophils # Man Lymphocytes # (Manual) Monocytes # (Manual) PT INR APTT D-Dimer Heparin Anti-Xa Level ABG pH POC ABG pCO2 POC ABG pO2 ABG pO2 ABG HCO3 ABG O2 Saturation ABG Base Excess ABG Hemoglobin ABG Oxyhemoglobin ABG Sodium ABG Potassium ABG Glucose Oxyhemoglobin Sodium Potassium Chloride Carbon Dioxide BUN Creatinine Glucose POC Glucose 191 H 182 H Lactic Acid Calcium Phosphorus Magnesium Ferritin Lactate Dehydrogenase C-Reactive Protein NT-Pro-B Natriuret Pep Total Protein Albumin Triglycerides Arterial Blood Glucose Urine pH Ur Specific [place] Coronavirus (PCR) Positive A 03/09/21 03/09/21 03/09/21 15:19 17:48 18:10 WBC RBC Hgb Hct MCV MCHC RDW Plt Count Lymph % (Auto) [place] % (Auto) Lymph # (Auto) [place] # (Auto) Seg Neutrophils % Seg Neuts % (Manual) Lymphocytes % (Manual) Monocytes % (Manual) Nucleated RBC % Seg Neutrophils # Seg Neutrophils # Man Lymphocytes # (Manual) Monocytes # (Manual) PT INR APTT D-Dimer Heparin Anti-Xa Level ABG pH POC ABG pCO2 POC ABG pO2 ABG pO2 47.3 L ABG HCO3 26.3 H ABG O2 Saturation 83.7 L ABG Base Excess ABG Hemoglobin ABG Oxyhemoglobin ABG Sodium ABG Potassium ABG Glucose Oxyhemoglobin 82.1 L Sodium Potassium Chloride Carbon Dioxide BUN 29 H Creatinine Glucose 214 H POC Glucose 194 H Lactic Acid Calcium Phosphorus Magnesium Ferritin Lactate Dehydrogenase C-Reactive Protein NT-Pro-B Natriuret Pep Total Protein Albumin 3.4 L Triglycerides Arterial Blood Glucose Urine pH Ur Specific [place] Coronavirus (PCR) 03/09/21 03/10/21 03/10/21 20:40 04:29 04:29 WBC 20.6 H RBC 5.07 H Hgb Hct 46.2 H MCV MCHC RDW Plt Count Lymph % (Auto) [place] % (Auto) Lymph # (Auto) [place] # (Auto) Seg Neutrophils % Seg Neuts % (Manual) 94.0 H Lymphocytes % (Manual) 1.0 L Monocytes % (Manual) Nucleated RBC % 3.0 H Seg Neutrophils # Seg Neutrophils # Man 19.4 H Lymphocytes # (Manual) 0.2 L Monocytes # (Manual) 1.0 H PT INR APTT D-Dimer Heparin Anti-Xa Level ABG pH POC ABG pCO2 POC ABG pO2 ABG pO2 ABG HCO3 ABG O2 Saturation ABG Base Excess ABG Hemoglobin ABG Oxyhemoglobin ABG Sodium ABG Potassium ABG Glucose Oxyhemoglobin Sodium Potassium Chloride Carbon Dioxide BUN 29 H Creatinine Glucose 188 H POC Glucose 176 H Lactic Acid Calcium Phosphorus Magnesium Ferritin Lactate Dehydrogenase C-Reactive Protein NT-Pro-B Natriuret Pep Total Protein Albumin 3.3 L Triglycerides Arterial Blood Glucose Urine pH Ur Specific [place] Coronavirus (PCR) 03/10/21 03/10/21 03/10/21 05:22 10:27 15:25 WBC RBC Hgb Hct MCV MCHC RDW Plt Count Lymph % (Auto) [place] % (Auto) Lymph # (Auto) [place] # (Auto) Seg Neutrophils % Seg Neuts % (Manual) Lymphocytes % (Manual) Monocytes % (Manual) Nucleated RBC % Seg Neutrophils # Seg Neutrophils # Man Lymphocytes # (Manual) Monocytes # (Manual) PT INR APTT D-Dimer Heparin Anti-Xa Level ABG pH 7.488 H 7.488 H POC ABG pCO2 POC ABG pO2 ABG pO2 47.7 L 50.5 L ABG HCO3 ABG O2 Saturation 86.2 L 87.9 L ABG Base Excess ABG Hemoglobin ABG Oxyhemoglobin ABG Sodium ABG Potassium ABG Glucose Oxyhemoglobin 84.6 L 86.2 L Sodium Potassium Chloride Carbon Dioxide BUN Creatinine Glucose POC Glucose 155 H Lactic Acid Calcium Phosphorus Magnesium Ferritin Lactate Dehydrogenase C-Reactive Protein NT-Pro-B Natriuret Pep Total Protein Albumin Triglycerides Arterial Blood Glucose Urine pH Ur Specific [place] Coronavirus (PCR) 03/10/21 03/10/21 03/11/21 18:10 18:55 00:07 WBC RBC Hgb Hct MCV MCHC RDW Plt Count Lymph % (Auto) [place] % (Auto) Lymph # (Auto) [place] # (Auto) Seg Neutrophils % Seg Neuts % (Manual) Lymphocytes % (Manual) Monocytes % (Manual) Nucleated RBC % Seg Neutrophils # Seg Neutrophils # Man Lymphocytes # (Manual) Monocytes # (Manual) PT INR APTT D-Dimer Heparin Anti-Xa Level ABG pH 7.343 L POC ABG pCO2 POC ABG pO2 ABG pO2 60.4 L ABG HCO3 27.9 H ABG O2 Saturation 88.7 L ABG Base Excess ABG Hemoglobin ABG Oxyhemoglobin ABG Sodium ABG Potassium ABG Glucose Oxyhemoglobin 86.9 L Sodium Potassium Chloride Carbon Dioxide BUN Creatinine Glucose POC Glucose 187 H 139 H Lactic Acid Calcium Phosphorus Magnesium Ferritin Lactate Dehydrogenase C-Reactive Protein NT-Pro-B Natriuret Pep Total Protein Albumin Triglycerides Arterial Blood Glucose Urine pH Ur Specific [place] Coronavirus (PCR) 03/11/21 03/11/21 03/11/21 02:09 04:28 08:06 WBC RBC Hgb Hct MCV MCHC RDW Plt Count Lymph % (Auto) [place] % (Auto) Lymph # (Auto) [place] # (Auto) Seg Neutrophils % Seg Neuts % (Manual) Lymphocytes % (Manual) Monocytes % (Manual) Nucleated RBC % Seg Neutrophils # Seg Neutrophils # Man Lymphocytes # (Manual) Monocytes # (Manual) PT INR APTT D-Dimer Heparin Anti-Xa Level ABG pH 7.277 L POC ABG pCO2 55.9 H POC ABG pO2 54.4 L ABG pO2 ABG HCO3 ABG O2 Saturation ABG Base Excess ABG Hemoglobin ABG Oxyhemoglobin 83.0 L ABG Sodium ABG Potassium 4.8 H ABG Glucose 180 H Oxyhemoglobin Sodium Potassium Chloride Carbon Dioxide BUN 38 H Creatinine Glucose 249 H POC Glucose 278 H Lactic Acid Calcium Phosphorus Magnesium Ferritin Lactate Dehydrogenase C-Reactive Protein NT-Pro-B Natriuret Pep Total Protein Albumin 3.2 L Triglycerides Arterial Blood Glucose 180 H Urine pH Ur Specific [place] Coronavirus (PCR) 03/11/21 03/11/21 03/11/21 11:29 15:06 15:48 WBC RBC Hgb Hct MCV MCHC RDW Plt Count Lymph % (Auto) [place] % (Auto) Lymph # (Auto) [place] # (Auto) Seg Neutrophils % Seg Neuts % (Manual) Lymphocytes % (Manual) Monocytes % (Manual) Nucleated RBC % Seg Neutrophils # Seg Neutrophils # Man Lymphocytes # (Manual) Monocytes # (Manual) PT INR APTT D-Dimer Heparin Anti-Xa Level ABG pH 7.260 L POC ABG pCO2 POC ABG pO2 ABG pO2 53.5 L ABG HCO3 29.5 H ABG O2 Saturation 84.0 L ABG Base Excess ABG Hemoglobin ABG Oxyhemoglobin ABG Sodium ABG Potassium ABG Glucose Oxyhemoglobin 82.3 L Sodium Potassium Chloride Carbon Dioxide BUN Creatinine Glucose POC Glucose 288 H 295 H Lactic Acid Calcium Phosphorus Magnesium Ferritin Lactate Dehydrogenase C-Reactive Protein NT-Pro-B Natriuret Pep Total Protein Albumin Triglycerides Arterial Blood Glucose Urine pH Ur Specific [place] Coronavirus (PCR) 03/12/21 03/12/21 03/12/21 00:01 05:24 08:03 WBC RBC Hgb Hct MCV MCHC RDW Plt Count Lymph % (Auto) [place] % (Auto) Lymph # (Auto) [place] # (Auto) Seg Neutrophils % Seg Neuts % (Manual) Lymphocytes % (Manual) Monocytes % (Manual) Nucleated RBC % Seg Neutrophils # Seg Neutrophils # Man Lymphocytes # (Manual) Monocytes # (Manual) PT INR APTT D-Dimer Heparin Anti-Xa Level ABG pH POC ABG pCO2 POC ABG pO2 ABG pO2 ABG HCO3 ABG O2 Saturation ABG Base Excess ABG Hemoglobin ABG Oxyhemoglobin ABG Sodium ABG Potassium ABG Glucose Oxyhemoglobin Sodium 135 L Potassium Chloride Carbon Dioxide BUN 48 H Creatinine Glucose 358 H POC Glucose 304 H 310 H Lactic Acid Calcium Phosphorus Magnesium Ferritin Lactate Dehydrogenase C-Reactive Protein NT-Pro-B Natriuret Pep Total Protein 6.0 L Albumin 2.9 L Triglycerides Arterial Blood Glucose Urine pH Ur Specific [place] Coronavirus (PCR) 03/12/21 03/12/21 03/12/21 08:03 10:43 11:31 WBC 14.6 H RBC Hgb Hct MCV MCHC RDW Plt Count Lymph % (Auto) [place] % (Auto) Lymph # (Auto) [place] # (Auto) Seg Neutrophils % Seg Neuts % (Manual) Lymphocytes % (Manual) Monocytes % (Manual) Nucleated RBC % Seg Neutrophils # Seg Neutrophils # Man Lymphocytes # (Manual) Monocytes # (Manual) PT INR APTT D-Dimer Heparin Anti-Xa Level ABG pH 7.248 L POC ABG pCO2 POC ABG pO2 ABG pO2 73.7 L ABG HCO3 32.0 H ABG O2 Saturation 93.9 L ABG Base Excess ABG Hemoglobin ABG Oxyhemoglobin ABG Sodium ABG Potassium ABG Glucose Oxyhemoglobin 92.1 L Sodium Potassium Chloride Carbon Dioxide BUN Creatinine Glucose POC Glucose 359 H Lactic Acid Calcium Phosphorus Magnesium Ferritin Lactate Dehydrogenase C-Reactive Protein NT-Pro-B Natriuret Pep Total Protein Albumin Triglycerides Arterial Blood Glucose Urine pH Ur Specific [place] Coronavirus (PCR) 03/12/21 03/12/21 03/13/21 17:20 21:54 00:02 WBC RBC Hgb Hct MCV MCHC RDW Plt Count Lymph % (Auto) [place] % (Auto) Lymph # (Auto) [place] # (Auto) Seg Neutrophils % Seg Neuts % (Manual) Lymphocytes % (Manual) Monocytes % (Manual) Nucleated RBC % Seg Neutrophils # Seg Neutrophils # Man Lymphocytes # (Manual) Monocytes # (Manual) PT INR APTT D-Dimer Heparin Anti-Xa Level ABG pH 7.238 L POC ABG pCO2 71.9 H POC ABG pO2 53.6 L ABG pO2 ABG HCO3 ABG O2 Saturation ABG Base Excess ABG Hemoglobin ABG Oxyhemoglobin 84.8 L ABG Sodium 134.2 L ABG Potassium 4.9 H ABG Glucose 306 H Oxyhemoglobin Sodium Potassium Chloride Carbon Dioxide BUN Creatinine Glucose POC Glucose 374 H 308 H Lactic Acid Calcium Phosphorus Magnesium Ferritin Lactate Dehydrogenase C-Reactive Protein NT-Pro-B Natriuret Pep Total Protein Albumin Triglycerides Arterial Blood Glucose 306 H Urine pH Ur Specific [place] Coronavirus (PCR) 03/13/21 03/13/21 03/13/21 05:22 05:44 05:44 WBC 13.9 H RBC Hgb Hct MCV MCHC RDW Plt Count Lymph % (Auto) [place] % (Auto) Lymph # (Auto) [place] # (Auto) Seg Neutrophils % Seg Neuts % (Manual) Lymphocytes % (Manual) Monocytes % (Manual) Nucleated RBC % Seg Neutrophils # Seg Neutrophils # Man Lymphocytes # (Manual) Monocytes # (Manual) PT INR APTT D-Dimer 3567.97 H Heparin Anti-Xa Level ABG pH POC ABG pCO2 POC ABG pO2 ABG pO2 ABG HCO3 ABG O2 Saturation ABG Base Excess ABG Hemoglobin ABG Oxyhemoglobin ABG Sodium ABG Potassium ABG Glucose Oxyhemoglobin Sodium Potassium Chloride Carbon Dioxide BUN Creatinine Glucose POC Glucose 316 H Lactic Acid Calcium Phosphorus Magnesium Ferritin Lactate Dehydrogenase C-Reactive Protein NT-Pro-B Natriuret Pep Total Protein Albumin Triglycerides Arterial Blood Glucose Urine pH Ur Specific [place] Coronavirus (PCR) 03/13/21 03/13/21 03/13/21 05:44 05:44 11:15 WBC RBC Hgb Hct MCV MCHC RDW Plt Count Lymph % (Auto) [place] % (Auto) Lymph # (Auto) [place] # (Auto) Seg Neutrophils % Seg Neuts % (Manual) Lymphocytes % (Manual) Monocytes % (Manual) Nucleated RBC % Seg Neutrophils # Seg Neutrophils # Man Lymphocytes # (Manual) Monocytes # (Manual) PT INR APTT D-Dimer Heparin Anti-Xa Level ABG pH 7.310 L POC ABG pCO2 POC ABG pO2 ABG pO2 52.3 L ABG HCO3 34.1 H ABG O2 Saturation 86.8 L ABG Base Excess 5.5 H ABG Hemoglobin 13.8 L ABG Oxyhemoglobin ABG Sodium ABG Potassium ABG Glucose Oxyhemoglobin 85.1 L Sodium Potassium Chloride Carbon Dioxide BUN Creatinine Glucose POC Glucose Lactic Acid Calcium Phosphorus Magnesium Ferritin 858.7 H Lactate Dehydrogenase 348 H C-Reactive Protein 2.80 H NT-Pro-B Natriuret Pep Total Protein Albumin Triglycerides Arterial Blood Glucose Urine pH Ur Specific [place] Coronavirus (PCR) 03/13/21 03/13/21 03/13/21 11:21 15:47 19:23 WBC RBC Hgb Hct MCV MCHC RDW Plt Count Lymph % (Auto) [place] % (Auto) Lymph # (Auto) [place] # (Auto) Seg Neutrophils % Seg Neuts % (Manual) Lymphocytes % (Manual) Monocytes % (Manual) Nucleated RBC % Seg Neutrophils # Seg Neutrophils # Man Lymphocytes # (Manual) Monocytes # (Manual) PT INR APTT D-Dimer Heparin Anti-Xa Level ABG pH POC ABG pCO2 POC ABG pO2 ABG pO2 ABG HCO3 ABG O2 Saturation ABG Base Excess ABG Hemoglobin ABG Oxyhemoglobin ABG Sodium ABG Potassium ABG Glucose Oxyhemoglobin Sodium 136 L Potassium 5.9 H Chloride Carbon Dioxide BUN 50 H Creatinine Glucose 397 H POC Glucose 322 H 317 H Lactic Acid Calcium Phosphorus Magnesium Ferritin Lactate Dehydrogenase C-Reactive Protein NT-Pro-B Natriuret Pep Total Protein Albumin Triglycerides Arterial Blood Glucose Urine pH Ur Specific [place] Coronavirus (PCR) 03/13/21 03/14/21 03/14/21 23:46 05:32 05:50 WBC 11.6 H RBC Hgb Hct MCV MCHC RDW Plt Count Lymph % (Auto) [place] % (Auto) Lymph # (Auto) [place] # (Auto) Seg Neutrophils % Seg Neuts % (Manual) Lymphocytes % (Manual) Monocytes % (Manual) Nucleated RBC % Seg Neutrophils # Seg Neutrophils # Man Lymphocytes # (Manual) Monocytes # (Manual) PT INR APTT D-Dimer Heparin Anti-Xa Level ABG pH POC ABG pCO2 POC ABG pO2 ABG pO2 ABG HCO3 ABG O2 Saturation ABG Base Excess ABG Hemoglobin ABG Oxyhemoglobin ABG Sodium ABG Potassium ABG Glucose Oxyhemoglobin Sodium Potassium Chloride Carbon Dioxide BUN Creatinine Glucose POC Glucose 332 H 316 H Lactic Acid Calcium Phosphorus Magnesium Ferritin Lactate Dehydrogenase C-Reactive Protein NT-Pro-B Natriuret Pep Total Protein Albumin Triglycerides Arterial Blood Glucose Urine pH Ur Specific [place] Coronavirus (PCR) 03/14/21 03/14/21 03/14/21 05:50 11:33 16:53 WBC RBC Hgb Hct MCV MCHC RDW Plt Count Lymph % (Auto) [place] % (Auto) Lymph # (Auto) [place] # (Auto) Seg Neutrophils % Seg Neuts % (Manual) Lymphocytes % (Manual) Monocytes % (Manual) Nucleated RBC % Seg Neutrophils # Seg Neutrophils # Man Lymphocytes # (Manual) Monocytes # (Manual) PT INR APTT D-Dimer Heparin Anti-Xa Level ABG pH POC ABG pCO2 POC ABG pO2 ABG pO2 ABG HCO3 ABG O2 Saturation ABG Base Excess ABG Hemoglobin ABG Oxyhemoglobin ABG Sodium ABG Potassium ABG Glucose Oxyhemoglobin Sodium Potassium 5.9 H Chloride Carbon Dioxide 31 H BUN 48 H Creatinine Glucose 380 H POC Glucose 315 H 235 H Lactic Acid Calcium Phosphorus Magnesium 3.40 H Ferritin Lactate Dehydrogenase C-Reactive Protein NT-Pro-B Natriuret Pep Total Protein Albumin Triglycerides Arterial Blood Glucose Urine pH Ur Specific [place] Coronavirus (PCR) 03/14/21 03/14/21 03/15/21 18:34 23:27 01:22 WBC RBC Hgb Hct 46.3 H MCV MCHC RDW Plt Count Lymph % (Auto) [place] % (Auto) Lymph # (Auto) [place] # (Auto) Seg Neutrophils % Seg Neuts % (Manual) Lymphocytes % (Manual) Monocytes % (Manual) Nucleated RBC % Seg Neutrophils # Seg Neutrophils # Man Lymphocytes # (Manual) Monocytes # (Manual) PT INR APTT D-Dimer Heparin Anti-Xa Level ABG pH POC ABG pCO2 POC ABG pO2 ABG pO2 ABG HCO3 ABG O2 Saturation ABG Base Excess ABG Hemoglobin ABG Oxyhemoglobin ABG Sodium ABG Potassium ABG Glucose Oxyhemoglobin Sodium 146 H Potassium Chloride Carbon Dioxide 34 H BUN 49 H Creatinine Glucose 285 H POC Glucose 203 H Lactic Acid Calcium Phosphorus Magnesium Ferritin Lactate Dehydrogenase C-Reactive Protein NT-Pro-B Natriuret Pep Total Protein Albumin Triglycerides Arterial Blood Glucose Urine pH Ur Specific [place] Coronavirus (PCR) 03/15/21 03/15/21 03/15/21 04:00 06:06 06:06 WBC RBC Hgb Hct MCV MCHC RDW Plt Count Lymph % (Auto) [place] % (Auto) Lymph # (Auto) [place] # (Auto) Seg Neutrophils % Seg Neuts % (Manual) Lymphocytes % (Manual) Monocytes % (Manual) Nucleated RBC % Seg Neutrophils # Seg Neutrophils # Man Lymphocytes # (Manual) Monocytes # (Manual) PT INR APTT D-Dimer 1781.79 H Heparin Anti-Xa Level ABG pH POC ABG pCO2 POC ABG pO2 ABG pO2 ABG HCO3 ABG O2 Saturation ABG Base Excess ABG Hemoglobin ABG Oxyhemoglobin ABG Sodium ABG Potassium ABG Glucose Oxyhemoglobin Sodium 148 H Potassium 5.7 H D Chloride 108.0 H Carbon Dioxide 31 H BUN 46 H Creatinine Glucose 139 H POC Glucose Lactic Acid Calcium Phosphorus 4.80 H D Magnesium 3.00 H Ferritin 976.4 H Lactate Dehydrogenase 630 H C-Reactive Protein NT-Pro-B Natriuret Pep Total Protein Albumin Triglycerides Arterial Blood Glucose Urine pH Ur Specific [place] Coronavirus (PCR) 03/15/21 03/15/21 03/15/21 11:56 14:05 17:09 WBC RBC Hgb Hct MCV MCHC RDW Plt Count Lymph % (Auto) [place] % (Auto) Lymph # (Auto) [place] # (Auto) Seg Neutrophils % Seg Neuts % (Manual) Lymphocytes % (Manual) Monocytes % (Manual) Nucleated RBC % Seg Neutrophils # Seg Neutrophils # Man Lymphocytes # (Manual) Monocytes # (Manual) PT INR APTT D-Dimer Heparin Anti-Xa Level ABG pH POC ABG pCO2 POC ABG pO2 ABG pO2 52.1 L ABG HCO3 36.6 H ABG O2 Saturation 87.6 L ABG Base Excess 9.5 H ABG Hemoglobin ABG Oxyhemoglobin ABG Sodium ABG Potassium ABG Glucose Oxyhemoglobin 85.7 L Sodium Potassium Chloride Carbon Dioxide BUN Creatinine Glucose POC Glucose 219 H 263 H Lactic Acid Calcium Phosphorus Magnesium Ferritin Lactate Dehydrogenase C-Reactive Protein NT-Pro-B Natriuret Pep Total Protein Albumin Triglycerides Arterial Blood Glucose Urine pH Ur Specific [place] Coronavirus (PCR) 03/16/21 03/16/21 03/16/21 00:32 04:11 04:11 WBC 11.9 H RBC Hgb Hct MCV MCHC 30 L RDW Plt Count Lymph % (Auto) [place] % (Auto) Lymph # (Auto) [place] # (Auto) Seg Neutrophils % Seg Neuts % (Manual) Lymphocytes % (Manual) Monocytes % (Manual) Nucleated RBC % Seg Neutrophils # Seg Neutrophils # Man Lymphocytes # (Manual) Monocytes # (Manual) PT INR APTT D-Dimer Heparin Anti-Xa Level ABG pH POC ABG pCO2 POC ABG pO2 ABG pO2 ABG HCO3 ABG O2 Saturation ABG Base Excess ABG Hemoglobin ABG Oxyhemoglobin ABG Sodium ABG Potassium ABG Glucose Oxyhemoglobin Sodium 151 H Potassium Chloride Carbon Dioxide 35 H BUN 48 H Creatinine Glucose 152 H POC Glucose 165 H Lactic Acid Calcium Phosphorus Magnesium Ferritin Lactate Dehydrogenase C-Reactive Protein NT-Pro-B Natriuret Pep Total Protein Albumin Triglycerides Arterial Blood Glucose Urine pH Ur Specific [place] Coronavirus (PCR) 03/16/21 03/16/21 03/16/21 04:11 05:26 11:35 WBC RBC Hgb Hct MCV MCHC RDW Plt Count Lymph % (Auto) [place] % (Auto) Lymph # (Auto) [place] # (Auto) Seg Neutrophils % Seg Neuts % (Manual) Lymphocytes % (Manual) Monocytes % (Manual) Nucleated RBC % Seg Neutrophils # Seg Neutrophils # Man Lymphocytes # (Manual) Monocytes # (Manual) PT INR APTT D-Dimer Heparin Anti-Xa Level ABG pH POC ABG pCO2 POC ABG pO2 ABG pO2 ABG HCO3 ABG O2 Saturation ABG Base Excess ABG Hemoglobin ABG Oxyhemoglobin ABG Sodium ABG Potassium ABG Glucose Oxyhemoglobin Sodium Potassium Chloride Carbon Dioxide BUN Creatinine Glucose POC Glucose 162 H 187 H Lactic Acid Calcium Phosphorus Magnesium Ferritin Lactate Dehydrogenase C-Reactive Protein NT-Pro-B Natriuret Pep Total Protein Albumin Triglycerides 267 H Arterial Blood Glucose Urine pH Ur Specific [place] Coronavirus (PCR) 03/16/21 03/16/21 03/16/21 17:29 22:25 23:22 WBC RBC Hgb Hct MCV MCHC RDW Plt Count Lymph % (Auto) [place] % (Auto) Lymph # (Auto) [place] # (Auto) Seg Neutrophils % Seg Neuts % (Manual) Lymphocytes % (Manual) Monocytes % (Manual) Nucleated RBC % Seg Neutrophils # Seg Neutrophils # Man Lymphocytes # (Manual) Monocytes # (Manual) PT INR APTT D-Dimer Heparin Anti-Xa Level ABG pH POC ABG pCO2 POC ABG pO2 ABG pO2 ABG HCO3 ABG O2 Saturation ABG Base Excess ABG Hemoglobin ABG Oxyhemoglobin ABG Sodium ABG Potassium ABG Glucose Oxyhemoglobin Sodium Potassium Chloride Carbon Dioxide BUN Creatinine Glucose POC Glucose 237 H 165 H 189 H Lactic Acid Calcium Phosphorus Magnesium Ferritin Lactate Dehydrogenase C-Reactive Protein NT-Pro-B Natriuret Pep Total Protein Albumin Triglycerides Arterial Blood Glucose Urine pH Ur Specific [place] Coronavirus (PCR) 03/17/21 03/17/21 03/17/21 04:40 04:40 04:40 WBC 14.1 H RBC Hgb Hct MCV MCHC RDW 15.3 H Plt Count Lymph % (Auto) 12.6 L [place] % (Auto) 11.3 H Lymph # (Auto) [place] # (Auto) 1.6 H Seg Neutrophils % 74.9 H Seg Neuts % (Manual) Lymphocytes % (Manual) Monocytes % (Manual) Nucleated RBC % Seg Neutrophils # 10.5 H Seg Neutrophils # Man Lymphocytes # (Manual) Monocytes # (Manual) PT INR APTT D-Dimer 1359.12 H Heparin Anti-Xa Level ABG pH POC ABG pCO2 POC ABG pO2 ABG pO2 ABG HCO3 ABG O2 Saturation ABG Base Excess ABG Hemoglobin ABG Oxyhemoglobin ABG Sodium ABG Potassium ABG Glucose Oxyhemoglobin Sodium 148 H Potassium Chloride 107.5 H Carbon Dioxide 33 H BUN 42 H Creatinine Glucose 183 H POC Glucose Lactic Acid Calcium Phosphorus Magnesium 2.70 H Ferritin Lactate Dehydrogenase C-Reactive Protein NT-Pro-B Natriuret Pep Total Protein Albumin Triglycerides Arterial Blood Glucose Urine pH Ur Specific [place] Coronavirus (PCR) 03/17/21 03/17/21 03/17/21 05:53 11:05 11:51 WBC RBC Hgb Hct MCV MCHC RDW Plt Count Lymph % (Auto) [place] % (Auto) Lymph # (Auto) [place] # (Auto) Seg Neutrophils % Seg Neuts % (Manual) Lymphocytes % (Manual) Monocytes % (Manual) Nucleated RBC % Seg Neutrophils # Seg Neutrophils # Man Lymphocytes # (Manual) Monocytes # (Manual) PT INR APTT D-Dimer Heparin Anti-Xa Level ABG pH POC ABG pCO2 POC ABG pO2 ABG pO2 ABG HCO3 35.7 H ABG O2 Saturation ABG Base Excess 8.7 H ABG Hemoglobin ABG Oxyhemoglobin ABG Sodium ABG Potassium ABG Glucose Oxyhemoglobin 94.2 L Sodium Potassium Chloride Carbon Dioxide BUN Creatinine Glucose POC Glucose 176 H 197 H Lactic Acid Calcium Phosphorus Magnesium Ferritin Lactate Dehydrogenase C-Reactive Protein NT-Pro-B Natriuret Pep Total Protein Albumin Triglycerides Arterial Blood Glucose Urine pH Ur Specific [place] Coronavirus (PCR) 03/17/21 03/17/21 03/17/21 16:54 21:10 23:33 WBC RBC Hgb Hct MCV MCHC RDW Plt Count Lymph % (Auto) [place] % (Auto) Lymph # (Auto) [place] # (Auto) Seg Neutrophils % Seg Neuts % (Manual) Lymphocytes % (Manual) Monocytes % (Manual) Nucleated RBC % Seg Neutrophils # Seg Neutrophils # Man Lymphocytes # (Manual) Monocytes # (Manual) PT INR APTT D-Dimer Heparin Anti-Xa Level ABG pH POC ABG pCO2 POC ABG pO2 ABG pO2 ABG HCO3 ABG O2 Saturation ABG Base Excess ABG Hemoglobin ABG Oxyhemoglobin ABG Sodium ABG Potassium ABG Glucose Oxyhemoglobin Sodium Potassium Chloride Carbon Dioxide BUN Creatinine Glucose POC Glucose 135 H 160 H 138 H Lactic Acid Calcium Phosphorus Magnesium Ferritin Lactate Dehydrogenase C-Reactive Protein NT-Pro-B Natriuret Pep Total Protein Albumin Triglycerides Arterial Blood Glucose Urine pH Ur Specific [place] Coronavirus (PCR) 03/18/21 03/18/21 03/18/21 04:18 04:50 05:43 WBC RBC Hgb Hct MCV MCHC RDW Plt Count Lymph % (Auto) [place] % (Auto) Lymph # (Auto) [place] # (Auto) Seg Neutrophils % Seg Neuts % (Manual) Lymphocytes % (Manual) Monocytes % (Manual) Nucleated RBC % Seg Neutrophils # Seg Neutrophils # Man Lymphocytes # (Manual) Monocytes # (Manual) PT INR APTT D-Dimer Heparin Anti-Xa Level ABG pH POC ABG pCO2 POC ABG pO2 ABG pO2 59.8 L ABG HCO3 36.5 H ABG O2 Saturation 90.7 L ABG Base Excess 9.4 H ABG Hemoglobin 12.0 L ABG Oxyhemoglobin ABG Sodium ABG Potassium ABG Glucose Oxyhemoglobin 88.9 L Sodium Potassium Chloride 107.2 H Carbon Dioxide 34 H BUN 38 H Creatinine 0.7 L Glucose 136 H POC Glucose 128 H Lactic Acid Calcium Phosphorus Magnesium Ferritin Lactate Dehydrogenase C-Reactive Protein NT-Pro-B Natriuret Pep Total Protein Albumin Triglycerides Arterial Blood Glucose Urine pH Ur Specific [place] Coronavirus (PCR) 03/18/21 03/18/21 03/18/21 11:20 17:35 23:35 WBC RBC Hgb Hct MCV MCHC RDW Plt Count Lymph % (Auto) [place] % (Auto) Lymph # (Auto) [place] # (Auto) Seg Neutrophils % Seg Neuts % (Manual) Lymphocytes % (Manual) Monocytes % (Manual) Nucleated RBC % Seg Neutrophils # Seg Neutrophils # Man Lymphocytes # (Manual) Monocytes # (Manual) PT INR APTT D-Dimer Heparin Anti-Xa Level ABG pH POC ABG pCO2 POC ABG pO2 ABG pO2 70.7 L ABG HCO3 33.6 H ABG O2 Saturation ABG Base Excess 8.0 H ABG Hemoglobin ABG Oxyhemoglobin ABG Sodium ABG Potassium ABG Glucose Oxyhemoglobin 93.7 L Sodium Potassium Chloride Carbon Dioxide BUN Creatinine Glucose POC Glucose 189 H 144 H Lactic Acid Calcium Phosphorus Magnesium Ferritin Lactate Dehydrogenase C-Reactive Protein NT-Pro-B Natriuret Pep Total Protein Albumin Triglycerides Arterial Blood Glucose Urine pH Ur Specific [place] Coronavirus (PCR) 03/19/21 03/19/21 03/19/21 02:35 04:20 04:20 WBC 14.0 H RBC Hgb Hct MCV MCHC RDW Plt Count Lymph % (Auto) [place] % (Auto) Lymph # (Auto) [place] # (Auto) Seg Neutrophils % Seg Neuts % (Manual) Lymphocytes % (Manual) Monocytes % (Manual) Nucleated RBC % Seg Neutrophils # Seg Neutrophils # Man Lymphocytes # (Manual) Monocytes # (Manual) PT INR APTT D-Dimer Heparin Anti-Xa Level ABG pH POC ABG pCO2 POC ABG pO2 ABG pO2 ABG HCO3 32.0 H ABG O2 Saturation ABG Base Excess 5.2 H ABG Hemoglobin 13.6 L ABG Oxyhemoglobin ABG Sodium ABG Potassium ABG Glucose Oxyhemoglobin 94.6 L Sodium 146 H Potassium Chloride 109.3 H Carbon Dioxide BUN 36 H Creatinine Glucose 203 H POC Glucose Lactic Acid Calcium Phosphorus Magnesium Ferritin Lactate Dehydrogenase C-Reactive Protein NT-Pro-B Natriuret Pep Total Protein Albumin Triglycerides 254 H Arterial Blood Glucose Urine pH Ur Specific [place] Coronavirus (PCR) 03/19/21 03/19/21 03/19/21 05:45 11:36 23:51 WBC RBC Hgb Hct MCV MCHC RDW Plt Count Lymph % (Auto) [place] % (Auto) Lymph # (Auto) [place] # (Auto) Seg Neutrophils % Seg Neuts % (Manual) Lymphocytes % (Manual) Monocytes % (Manual) Nucleated RBC % Seg Neutrophils # Seg Neutrophils # Man Lymphocytes # (Manual) Monocytes # (Manual) PT INR APTT D-Dimer Heparin Anti-Xa Level ABG pH POC ABG pCO2 POC ABG pO2 ABG pO2 ABG HCO3 ABG O2 Saturation ABG Base Excess ABG Hemoglobin ABG Oxyhemoglobin ABG Sodium ABG Potassium ABG Glucose Oxyhemoglobin Sodium Potassium Chloride Carbon Dioxide BUN Creatinine Glucose POC Glucose 164 H 172 H 140 H Lactic Acid Calcium Phosphorus Magnesium Ferritin Lactate Dehydrogenase C-Reactive Protein NT-Pro-B Natriuret Pep Total Protein Albumin Triglycerides Arterial Blood Glucose Urine pH Ur Specific [place] Coronavirus (PCR) 03/20/21 03/20/21 03/20/21 03:29 04:45 04:45 WBC RBC Hgb Hct MCV 95 H MCHC RDW 15.7 H Plt Count Lymph % (Auto) [place] % (Auto) Lymph # (Auto) [place] # (Auto) Seg Neutrophils % Seg Neuts % (Manual) Lymphocytes % (Manual) Monocytes % (Manual) Nucleated RBC % Seg Neutrophils # Seg Neutrophils # Man Lymphocytes # (Manual) Monocytes # (Manual) PT INR APTT D-Dimer Heparin Anti-Xa Level ABG pH 7.349 L POC ABG pCO2 POC ABG pO2 ABG pO2 ABG HCO3 33.7 H ABG O2 Saturation ABG Base Excess 6.4 H ABG Hemoglobin 11.8 L ABG Oxyhemoglobin ABG Sodium ABG Potassium ABG Glucose Oxyhemoglobin 93.9 L Sodium 146 H Potassium 5.5 H Chloride 111.1 H Carbon Dioxide BUN 34 H Creatinine 0.7 L Glucose 145 H POC Glucose Lactic Acid Calcium Phosphorus Magnesium 2.50 H Ferritin Lactate Dehydrogenase C-Reactive Protein NT-Pro-B Natriuret Pep Total Protein Albumin Triglycerides Arterial Blood Glucose Urine pH Ur Specific [place] Coronavirus (PCR) 03/20/21 03/20/21 03/20/21 05:41 09:08 11:54 WBC RBC Hgb Hct MCV MCHC RDW Plt Count Lymph % (Auto) [place] % (Auto) Lymph # (Auto) [place] # (Auto) Seg Neutrophils % Seg Neuts % (Manual) Lymphocytes % (Manual) Monocytes % (Manual) Nucleated RBC % Seg Neutrophils # Seg Neutrophils # Man Lymphocytes # (Manual) Monocytes # (Manual) PT INR APTT D-Dimer Heparin Anti-Xa Level ABG pH POC ABG pCO2 POC ABG pO2 ABG pO2 ABG HCO3 ABG O2 Saturation ABG Base Excess ABG Hemoglobin ABG Oxyhemoglobin ABG Sodium ABG Potassium ABG Glucose Oxyhemoglobin Sodium Potassium Chloride Carbon Dioxide BUN Creatinine Glucose POC Glucose 108 H 132 H 162 H Lactic Acid Calcium Phosphorus Magnesium Ferritin Lactate Dehydrogenase C-Reactive Protein NT-Pro-B Natriuret Pep Total Protein Albumin Triglycerides Arterial Blood Glucose Urine pH Ur Specific [place] Coronavirus (PCR) 03/20/21 03/21/21 03/21/21 17:28 00:31 04:44 WBC RBC Hgb Hct MCV MCHC RDW Plt Count Lymph % (Auto) [place] % (Auto) Lymph # (Auto) [place] # (Auto) Seg Neutrophils % Seg Neuts % (Manual) Lymphocytes % (Manual) Monocytes % (Manual) Nucleated RBC % Seg Neutrophils # Seg Neutrophils # Man Lymphocytes # (Manual) Monocytes # (Manual) PT INR APTT D-Dimer Heparin Anti-Xa Level ABG pH POC ABG pCO2 POC ABG pO2 ABG pO2 ABG HCO3 ABG O2 Saturation ABG Base Excess ABG Hemoglobin ABG Oxyhemoglobin ABG Sodium ABG Potassium ABG Glucose Oxyhemoglobin Sodium Potassium Chloride 108.3 H Carbon Dioxide BUN 30 H Creatinine 0.7 L Glucose POC Glucose 160 H 122 H Lactic Acid Calcium Phosphorus Magnesium Ferritin Lactate Dehydrogenase C-Reactive Protein NT-Pro-B Natriuret Pep Total Protein Albumin Triglycerides Arterial Blood Glucose Urine pH Ur Specific [place] Coronavirus (PCR) 03/21/21 03/21/21 03/21/21 09:18 10:09 13:20 WBC RBC Hgb Hct MCV MCHC RDW Plt Count Lymph % (Auto) [place] % (Auto) Lymph # (Auto) [place] # (Auto) Seg Neutrophils % Seg Neuts % (Manual) Lymphocytes % (Manual) Monocytes % (Manual) Nucleated RBC % Seg Neutrophils # Seg Neutrophils # Man Lymphocytes # (Manual) Monocytes # (Manual) PT INR APTT D-Dimer Heparin Anti-Xa Level ABG pH POC ABG pCO2 POC ABG pO2 ABG pO2 60.7 L ABG HCO3 30.6 H ABG O2 Saturation 93.6 L ABG Base Excess 5.3 H ABG Hemoglobin ABG Oxyhemoglobin ABG Sodium ABG Potassium ABG Glucose Oxyhemoglobin 91.7 L Sodium Potassium Chloride Carbon Dioxide BUN Creatinine Glucose POC Glucose 169 H 122 H Lactic Acid Calcium Phosphorus Magnesium Ferritin Lactate Dehydrogenase C-Reactive Protein NT-Pro-B Natriuret Pep Total Protein Albumin Triglycerides Arterial Blood Glucose Urine pH Ur Specific [place] Coronavirus (PCR) 03/21/21 03/21/21 03/21/21 17:25 22:41 23:52 WBC RBC Hgb Hct MCV MCHC RDW Plt Count Lymph % (Auto) [place] % (Auto) Lymph # (Auto) [place] # (Auto) Seg Neutrophils % Seg Neuts % (Manual) Lymphocytes % (Manual) Monocytes % (Manual) Nucleated RBC % Seg Neutrophils # Seg Neutrophils # Man Lymphocytes # (Manual) Monocytes # (Manual) PT INR APTT D-Dimer Heparin Anti-Xa Level ABG pH POC ABG pCO2 POC ABG pO2 ABG pO2 ABG HCO3 ABG O2 Saturation ABG Base Excess ABG Hemoglobin ABG Oxyhemoglobin ABG Sodium ABG Potassium ABG Glucose Oxyhemoglobin Sodium Potassium Chloride Carbon Dioxide BUN Creatinine Glucose POC Glucose 121 H 139 H 140 H Lactic Acid Calcium Phosphorus Magnesium Ferritin Lactate Dehydrogenase C-Reactive Protein NT-Pro-B Natriuret Pep Total Protein Albumin Triglycerides Arterial Blood Glucose Urine pH Ur Specific [place] Coronavirus (PCR) 03/22/21 03/22/21 03/22/21 05:58 07:26 07:26 WBC RBC Hgb Hct MCV MCHC 31 L RDW 16.1 H Plt Count Lymph % (Auto) [place] % (Auto) Lymph # (Auto) [place] # (Auto) Seg Neutrophils % Seg Neuts % (Manual) Lymphocytes % (Manual) Monocytes % (Manual) Nucleated RBC % Seg Neutrophils # Seg Neutrophils # Man Lymphocytes # (Manual) Monocytes # (Manual) PT INR APTT D-Dimer Heparin Anti-Xa Level ABG pH POC ABG pCO2 POC ABG pO2 ABG pO2 ABG HCO3 ABG O2 Saturation ABG Base Excess ABG Hemoglobin ABG Oxyhemoglobin ABG Sodium ABG Potassium ABG Glucose Oxyhemoglobin Sodium Potassium Chloride 108.5 H Carbon Dioxide BUN 44 H Creatinine Glucose 120 H POC Glucose 131 H Lactic Acid Calcium Phosphorus 5.80 H Magnesium 2.80 H Ferritin Lactate Dehydrogenase C-Reactive Protein NT-Pro-B Natriuret Pep Total Protein Albumin Triglycerides 305 H Arterial Blood Glucose Urine pH Ur Specific [place] Coronavirus (PCR) 03/22/21 03/22/21 03/22/21 09:38 11:15 16:01 WBC RBC Hgb Hct MCV MCHC RDW Plt Count Lymph % (Auto) [place] % (Auto) Lymph # (Auto) [place] # (Auto) Seg Neutrophils % Seg Neuts % (Manual) Lymphocytes % (Manual) Monocytes % (Manual) Nucleated RBC % Seg Neutrophils # Seg Neutrophils # Man Lymphocytes # (Manual) Monocytes # (Manual) PT INR APTT D-Dimer Heparin Anti-Xa Level ABG pH POC ABG pCO2 POC ABG pO2 ABG pO2 70.0 L ABG HCO3 30.0 H ABG O2 Saturation 94.6 L ABG Base Excess 3.6 H ABG Hemoglobin 13.5 L ABG Oxyhemoglobin ABG Sodium ABG Potassium ABG Glucose Oxyhemoglobin 92.5 L Sodium Potassium Chloride Carbon Dioxide BUN Creatinine Glucose POC Glucose 186 H 148 H Lactic Acid Calcium Phosphorus Magnesium Ferritin Lactate Dehydrogenase C-Reactive Protein NT-Pro-B Natriuret Pep Total Protein Albumin Triglycerides Arterial Blood Glucose Urine pH Ur Specific [place] Coronavirus (PCR) 03/22/21 03/22/21 03/23/21 21:13 23:48 07:04 WBC 11.7 H RBC Hgb Hct MCV 95 H MCHC RDW 16.1 H Plt Count Lymph % (Auto) [place] % (Auto) Lymph # (Auto) [place] # (Auto) Seg Neutrophils % Seg Neuts % (Manual) Lymphocytes % (Manual) Monocytes % (Manual) Nucleated RBC % Seg Neutrophils # Seg Neutrophils # Man Lymphocytes # (Manual) Monocytes # (Manual) PT INR APTT D-Dimer Heparin Anti-Xa Level ABG pH POC ABG pCO2 POC ABG pO2 ABG pO2 ABG HCO3 ABG O2 Saturation ABG Base Excess ABG Hemoglobin ABG Oxyhemoglobin ABG Sodium ABG Potassium ABG Glucose Oxyhemoglobin Sodium Potassium Chloride Carbon Dioxide BUN Creatinine Glucose POC Glucose 121 H 114 H Lactic Acid Calcium Phosphorus Magnesium Ferritin Lactate Dehydrogenase C-Reactive Protein NT-Pro-B Natriuret Pep Total Protein Albumin Triglycerides Arterial Blood Glucose Urine pH Ur Specific [place] Coronavirus (PCR) 03/23/21 03/23/21 03/23/21 07:04 08:35 11:19 WBC RBC Hgb Hct MCV MCHC RDW Plt Count Lymph % (Auto) [place] % (Auto) Lymph # (Auto) [place] # (Auto) Seg Neutrophils % Seg Neuts % (Manual) Lymphocytes % (Manual) Monocytes % (Manual) Nucleated RBC % Seg Neutrophils # Seg Neutrophils # Man Lymphocytes # (Manual) Monocytes # (Manual) PT INR APTT D-Dimer Heparin Anti-Xa Level ABG pH 7.345 L POC ABG pCO2 POC ABG pO2 ABG pO2 167.9 H ABG HCO3 32.2 H ABG O2 Saturation ABG Base Excess 4.8 H ABG Hemoglobin 13.4 L ABG Oxyhemoglobin ABG Sodium ABG Potassium ABG Glucose Oxyhemoglobin Sodium 148 H Potassium Chloride 111.3 H Carbon Dioxide 31 H BUN 31 H Creatinine Glucose 131 H POC Glucose 165 H Lactic Acid Calcium Phosphorus Magnesium 2.50 H Ferritin Lactate Dehydrogenase C-Reactive Protein NT-Pro-B Natriuret Pep Total Protein Albumin Triglycerides Arterial Blood Glucose Urine pH Ur Specific [place] Coronavirus (PCR) 03/23/21 03/23/21 03/24/21 16:48 20:52 00:07 WBC RBC Hgb Hct MCV MCHC RDW Plt Count Lymph % (Auto) [place] % (Auto) Lymph # (Auto) [place] # (Auto) Seg Neutrophils % Seg Neuts % (Manual) Lymphocytes % (Manual) Monocytes % (Manual) Nucleated RBC % Seg Neutrophils # Seg Neutrophils # Man Lymphocytes # (Manual) Monocytes # (Manual) PT INR APTT D-Dimer Heparin Anti-Xa Level ABG pH POC ABG pCO2 POC ABG pO2 ABG pO2 ABG HCO3 ABG O2 Saturation ABG Base Excess ABG Hemoglobin ABG Oxyhemoglobin ABG Sodium ABG Potassium ABG Glucose Oxyhemoglobin Sodium Potassium Chloride Carbon Dioxide BUN Creatinine Glucose POC Glucose 160 H 127 H 147 H Lactic Acid Calcium Phosphorus Magnesium Ferritin Lactate Dehydrogenase C-Reactive Protein NT-Pro-B Natriuret Pep Total Protein Albumin Triglycerides Arterial Blood Glucose Urine pH Ur Specific [place] Coronavirus (PCR) 03/24/21 03/24/21 03/24/21 04:34 04:34 05:20 WBC 13.3 H RBC Hgb Hct MCV MCHC 31 L RDW 16.1 H Plt Count Lymph % (Auto) [place] % (Auto) Lymph # (Auto) [place] # (Auto) Seg Neutrophils % Seg Neuts % (Manual) Lymphocytes % (Manual) Monocytes % (Manual) Nucleated RBC % Seg Neutrophils # Seg Neutrophils # Man Lymphocytes # (Manual) Monocytes # (Manual) PT INR APTT D-Dimer Heparin Anti-Xa Level ABG pH POC ABG pCO2 POC ABG pO2 ABG pO2 ABG HCO3 ABG O2 Saturation ABG Base Excess ABG Hemoglobin ABG Oxyhemoglobin ABG Sodium ABG Potassium ABG Glucose Oxyhemoglobin Sodium Potassium 5.2 H Chloride Carbon Dioxide BUN 28 H Creatinine 0.7 L Glucose 152 H POC Glucose 141 H Lactic Acid Calcium Phosphorus Magnesium Ferritin Lactate Dehydrogenase C-Reactive Protein NT-Pro-B Natriuret Pep Total Protein Albumin Triglycerides Arterial Blood Glucose Urine pH Ur Specific [place] Coronavirus (PCR) 03/24/21 03/24/21 03/24/21 09:40 11:38 16:45 WBC RBC Hgb Hct MCV MCHC RDW Plt Count Lymph % (Auto) [place] % (Auto) Lymph # (Auto) [place] # (Auto) Seg Neutrophils % Seg Neuts % (Manual) Lymphocytes % (Manual) Monocytes % (Manual) Nucleated RBC % Seg Neutrophils # Seg Neutrophils # Man Lymphocytes # (Manual) Monocytes # (Manual) PT INR APTT D-Dimer Heparin Anti-Xa Level ABG pH POC ABG pCO2 POC ABG pO2 ABG pO2 ABG HCO3 ABG O2 Saturation ABG Base Excess ABG Hemoglobin ABG Oxyhemoglobin ABG Sodium ABG Potassium ABG Glucose Oxyhemoglobin Sodium Potassium Chloride Carbon Dioxide BUN Creatinine Glucose POC Glucose 126 H 136 H 118 H Lactic Acid Calcium Phosphorus Magnesium Ferritin Lactate Dehydrogenase C-Reactive Protein NT-Pro-B Natriuret Pep Total Protein Albumin Triglycerides Arterial Blood Glucose Urine pH Ur Specific [place] Coronavirus (PCR) 03/24/21 03/24/21 03/25/21 21:03 23:49 04:32 WBC RBC Hgb Hct MCV MCHC RDW 16.1 H Plt Count 121 L Lymph % (Auto) [place] % (Auto) Lymph # (Auto) [place] # (Auto) Seg Neutrophils % Seg Neuts % (Manual) Lymphocytes % (Manual) Monocytes % (Manual) Nucleated RBC % Seg Neutrophils # Seg Neutrophils # Man Lymphocytes # (Manual) Monocytes # (Manual) PT INR APTT D-Dimer Heparin Anti-Xa Level ABG pH POC ABG pCO2 POC ABG pO2 ABG pO2 ABG HCO3 ABG O2 Saturation ABG Base Excess ABG Hemoglobin ABG Oxyhemoglobin ABG Sodium ABG Potassium ABG Glucose Oxyhemoglobin Sodium Potassium Chloride Carbon Dioxide BUN Creatinine Glucose POC Glucose 116 H 125 H Lactic Acid Calcium Phosphorus Magnesium Ferritin Lactate Dehydrogenase C-Reactive Protein NT-Pro-B Natriuret Pep Total Protein Albumin Triglycerides Arterial Blood Glucose Urine pH Ur Specific [place] Coronavirus (PCR) 03/25/21 03/25/21 03/25/21 04:32 05:21 09:29 WBC RBC Hgb Hct MCV MCHC RDW Plt Count Lymph % (Auto) [place] % (Auto) Lymph # (Auto) [place] # (Auto) Seg Neutrophils % Seg Neuts % (Manual) Lymphocytes % (Manual) Monocytes % (Manual) Nucleated RBC % Seg Neutrophils # Seg Neutrophils # Man Lymphocytes # (Manual) Monocytes # (Manual) PT INR APTT D-Dimer Heparin Anti-Xa Level ABG pH POC ABG pCO2 POC ABG pO2 ABG pO2 ABG HCO3 ABG O2 Saturation ABG Base Excess ABG Hemoglobin ABG Oxyhemoglobin ABG Sodium ABG Potassium ABG Glucose Oxyhemoglobin Sodium 135 L D Potassium Chloride Carbon Dioxide BUN 25 H Creatinine 0.7 L Glucose 168 H POC Glucose 149 H 115 H Lactic Acid Calcium Phosphorus Magnesium Ferritin Lactate Dehydrogenase C-Reactive Protein NT-Pro-B Natriuret Pep Total Protein Albumin Triglycerides Arterial Blood Glucose Urine pH Ur Specific [place] Coronavirus (PCR) 03/25/21 03/25/21 03/25/21 12:26 12:35 23:53 WBC RBC Hgb Hct MCV MCHC RDW Plt Count Lymph % (Auto) [place] % (Auto) Lymph # (Auto) [place] # (Auto) Seg Neutrophils % Seg Neuts % (Manual) Lymphocytes % (Manual) Monocytes % (Manual) Nucleated RBC % Seg Neutrophils # Seg Neutrophils # Man Lymphocytes # (Manual) Monocytes # (Manual) PT INR APTT D-Dimer Heparin Anti-Xa Level ABG pH POC ABG pCO2 POC ABG pO2 ABG pO2 100.5 H ABG HCO3 33.6 H ABG O2 Saturation ABG Base Excess 6.4 H ABG Hemoglobin 12.0 L ABG Oxyhemoglobin ABG Sodium ABG Potassium ABG Glucose Oxyhemoglobin Sodium Potassium Chloride Carbon Dioxide BUN Creatinine Glucose POC Glucose 108 H 137 H Lactic Acid Calcium Phosphorus Magnesium Ferritin Lactate Dehydrogenase C-Reactive Protein NT-Pro-B Natriuret Pep Total Protein Albumin Triglycerides Arterial Blood Glucose Urine pH Ur Specific [place] Coronavirus (PCR) 03/26/21 03/26/21 03/26/21 05:14 07:09 07:09 WBC RBC Hgb Hct MCV MCHC RDW 16.5 H Plt Count 139 L Lymph % (Auto) [place] % (Auto) Lymph # (Auto) [place] # (Auto) Seg Neutrophils % Seg Neuts % (Manual) Lymphocytes % (Manual) Monocytes % (Manual) Nucleated RBC % Seg Neutrophils # Seg Neutrophils # Man Lymphocytes # (Manual) Monocytes # (Manual) PT INR APTT D-Dimer Heparin Anti-Xa Level ABG pH POC ABG pCO2 POC ABG pO2 ABG pO2 ABG HCO3 ABG O2 Saturation ABG Base Excess ABG Hemoglobin ABG Oxyhemoglobin ABG Sodium ABG Potassium ABG Glucose Oxyhemoglobin Sodium Potassium Chloride Carbon Dioxide BUN 22 H Creatinine 0.7 L Glucose 108 H POC Glucose 116 H Lactic Acid Calcium Phosphorus Magnesium Ferritin Lactate Dehydrogenase C-Reactive Protein NT-Pro-B Natriuret Pep Total Protein Albumin Triglycerides Arterial Blood Glucose Urine pH Ur Specific [place] Coronavirus (PCR) 03/26/21 03/26/21 03/26/21 09:51 11:15 16:59 WBC RBC Hgb Hct MCV MCHC RDW Plt Count Lymph % (Auto) [place] % (Auto) Lymph # (Auto) [place] # (Auto) Seg Neutrophils % Seg Neuts % (Manual) Lymphocytes % (Manual) Monocytes % (Manual) Nucleated RBC % Seg Neutrophils # Seg Neutrophils # Man Lymphocytes # (Manual) Monocytes # (Manual) PT INR APTT D-Dimer Heparin Anti-Xa Level ABG pH POC ABG pCO2 POC ABG pO2 ABG pO2 ABG HCO3 ABG O2 Saturation ABG Base Excess ABG Hemoglobin ABG Oxyhemoglobin ABG Sodium ABG Potassium ABG Glucose Oxyhemoglobin Sodium Potassium Chloride Carbon Dioxide BUN Creatinine Glucose POC Glucose 107 H 119 H 174 H Lactic Acid Calcium Phosphorus Magnesium Ferritin Lactate Dehydrogenase C-Reactive Protein NT-Pro-B Natriuret Pep Total Protein Albumin Triglycerides Arterial Blood Glucose Urine pH Ur Specific [place] Coronavirus (PCR) 03/26/21 03/27/21 03/27/21 22:18 07:08 10:28 WBC RBC Hgb Hct MCV 95 H MCHC RDW 16.2 H Plt Count 134 L Lymph % (Auto) [place] % (Auto) Lymph # (Auto) [place] # (Auto) Seg Neutrophils % Seg Neuts % (Manual) Lymphocytes % (Manual) Monocytes % (Manual) Nucleated RBC % Seg Neutrophils # Seg Neutrophils # Man Lymphocytes # (Manual) Monocytes # (Manual) PT INR APTT D-Dimer Heparin Anti-Xa Level ABG pH POC ABG pCO2 POC ABG pO2 ABG pO2 ABG HCO3 ABG O2 Saturation ABG Base Excess ABG Hemoglobin ABG Oxyhemoglobin ABG Sodium ABG Potassium ABG Glucose Oxyhemoglobin Sodium Potassium Chloride Carbon Dioxide BUN Creatinine Glucose POC Glucose 107 H 52 L Lactic Acid Calcium Phosphorus Magnesium Ferritin Lactate Dehydrogenase C-Reactive Protein NT-Pro-B Natriuret Pep Total Protein Albumin Triglycerides Arterial Blood Glucose Urine pH Ur Specific [place] Coronavirus (PCR) 03/27/21 03/27/21 03/27/21 10:28 11:45 17:39 WBC RBC Hgb Hct MCV MCHC RDW Plt Count Lymph % (Auto) [place] % (Auto) Lymph # (Auto) [place] # (Auto) Seg Neutrophils % Seg Neuts % (Manual) Lymphocytes % (Manual) Monocytes % (Manual) Nucleated RBC % Seg Neutrophils # Seg Neutrophils # Man Lymphocytes # (Manual) Monocytes # (Manual) PT INR APTT D-Dimer Heparin Anti-Xa Level ABG pH POC ABG pCO2 POC ABG pO2 ABG pO2 ABG HCO3 ABG O2 Saturation ABG Base Excess ABG Hemoglobin ABG Oxyhemoglobin ABG Sodium ABG Potassium ABG Glucose Oxyhemoglobin Sodium 136 L Potassium Chloride Carbon Dioxide BUN Creatinine 0.7 L Glucose 150 H POC Glucose 121 H 165 H Lactic Acid Calcium Phosphorus Magnesium Ferritin Lactate Dehydrogenase C-Reactive Protein NT-Pro-B Natriuret Pep Total Protein Albumin Triglycerides Arterial Blood Glucose Urine pH Ur Specific [place] Coronavirus (PCR) 03/28/21 03/28/21 03/28/21 07:14 11:42 18:22 WBC RBC Hgb Hct MCV MCHC RDW 16.4 H Plt Count Lymph % (Auto) [place] % (Auto) Lymph # (Auto) [place] # (Auto) Seg Neutrophils % Seg Neuts % (Manual) Lymphocytes % (Manual) Monocytes % (Manual) Nucleated RBC % Seg Neutrophils # Seg Neutrophils # Man Lymphocytes # (Manual) Monocytes # (Manual) PT INR APTT D-Dimer Heparin Anti-Xa Level ABG pH POC ABG pCO2 POC ABG pO2 ABG pO2 ABG HCO3 ABG O2 Saturation ABG Base Excess ABG Hemoglobin ABG Oxyhemoglobin ABG Sodium ABG Potassium ABG Glucose Oxyhemoglobin Sodium Potassium Chloride Carbon Dioxide BUN Creatinine Glucose POC Glucose 145 H 169 H Lactic Acid Calcium Phosphorus Magnesium Ferritin Lactate Dehydrogenase C-Reactive Protein NT-Pro-B Natriuret Pep Total Protein Albumin Triglycerides Arterial Blood Glucose Urine pH Ur Specific [place] Coronavirus (PCR) 03/28/21 03/29/21 03/29/21 23:39 04:50 04:50 WBC RBC Hgb 11.0 L Hct 34.9 L MCV MCHC RDW 15.9 H Plt Count Lymph % (Auto) [place] % (Auto) Lymph # (Auto) [place] # (Auto) Seg Neutrophils % Seg Neuts % (Manual) Lymphocytes % (Manual) Monocytes % (Manual) Nucleated RBC % Seg Neutrophils # Seg Neutrophils # Man Lymphocytes # (Manual) Monocytes # (Manual) PT INR APTT D-Dimer Heparin Anti-Xa Level ABG pH POC ABG pCO2 POC ABG pO2 ABG pO2 ABG HCO3 ABG O2 Saturation ABG Base Excess ABG Hemoglobin ABG Oxyhemoglobin ABG Sodium ABG Potassium ABG Glucose Oxyhemoglobin Sodium Potassium Chloride Carbon Dioxide 34 H BUN Creatinine 0.6 L Glucose 152 H POC Glucose 139 H Lactic Acid Calcium Phosphorus Magnesium Ferritin Lactate Dehydrogenase C-Reactive Protein NT-Pro-B Natriuret Pep Total Protein Albumin Triglycerides Arterial Blood Glucose Urine pH Ur Specific [place] Coronavirus (PCR) 03/29/21 03/29/21 03/29/21 05:25 11:34 18:02 WBC RBC Hgb Hct MCV MCHC RDW Plt Count Lymph % (Auto) [place] % (Auto) Lymph # (Auto) [place] # (Auto) Seg Neutrophils % Seg Neuts % (Manual) Lymphocytes % (Manual) Monocytes % (Manual) Nucleated RBC % Seg Neutrophils # Seg Neutrophils # Man Lymphocytes # (Manual) Monocytes # (Manual) PT INR APTT D-Dimer Heparin Anti-Xa Level ABG pH POC ABG pCO2 POC ABG pO2 ABG pO2 ABG HCO3 ABG O2 Saturation ABG Base Excess ABG Hemoglobin ABG Oxyhemoglobin ABG Sodium ABG Potassium ABG Glucose Oxyhemoglobin Sodium Potassium Chloride Carbon Dioxide BUN Creatinine Glucose POC Glucose 127 H 169 H 173 H Lactic Acid Calcium Phosphorus Magnesium Ferritin Lactate Dehydrogenase C-Reactive Protein NT-Pro-B Natriuret Pep Total Protein Albumin Triglycerides Arterial Blood Glucose Urine pH Ur Specific [place] Coronavirus (PCR) 03/29/21 03/30/21 03/30/21 21:42 00:01 05:36 WBC RBC Hgb Hct MCV MCHC RDW 16.7 H Plt Count Lymph % (Auto) [place] % (Auto) Lymph # (Auto) [place] # (Auto) Seg Neutrophils % Seg Neuts % (Manual) Lymphocytes % (Manual) Monocytes % (Manual) Nucleated RBC % Seg Neutrophils # Seg Neutrophils # Man Lymphocytes # (Manual) Monocytes # (Manual) PT INR APTT D-Dimer Heparin Anti-Xa Level ABG pH POC ABG pCO2 POC ABG pO2 ABG pO2 ABG HCO3 ABG O2 Saturation ABG Base Excess ABG Hemoglobin ABG Oxyhemoglobin ABG Sodium ABG Potassium ABG Glucose Oxyhemoglobin Sodium Potassium Chloride Carbon Dioxide BUN Creatinine Glucose POC Glucose 184 H 161 H Lactic Acid Calcium Phosphorus Magnesium Ferritin Lactate Dehydrogenase C-Reactive Protein NT-Pro-B Natriuret Pep Total Protein Albumin Triglycerides Arterial Blood Glucose Urine pH Ur Specific [place] Coronavirus (PCR) 03/30/21 03/30/21 03/30/21 05:36 06:03 11:32 WBC RBC Hgb Hct MCV MCHC RDW Plt Count Lymph % (Auto) [place] % (Auto) Lymph # (Auto) [place] # (Auto) Seg Neutrophils % Seg Neuts % (Manual) Lymphocytes % (Manual) Monocytes % (Manual) Nucleated RBC % Seg Neutrophils # Seg Neutrophils # Man Lymphocytes # (Manual) Monocytes # (Manual) PT INR APTT D-Dimer Heparin Anti-Xa Level ABG pH POC ABG pCO2 POC ABG pO2 ABG pO2 ABG HCO3 ABG O2 Saturation ABG Base Excess ABG Hemoglobin ABG Oxyhemoglobin ABG Sodium ABG Potassium ABG Glucose Oxyhemoglobin Sodium Potassium Chloride Carbon Dioxide BUN Creatinine 0.5 L Glucose 127 H POC Glucose 130 H 183 H Lactic Acid Calcium Phosphorus Magnesium Ferritin Lactate Dehydrogenase C-Reactive Protein NT-Pro-B Natriuret Pep Total Protein Albumin Triglycerides Arterial Blood Glucose Urine pH Ur Specific [place] Coronavirus (PCR) 03/30/21 03/30/21 03/30/21 15:00 16:23 21:07 WBC RBC Hgb Hct MCV MCHC RDW Plt Count Lymph % (Auto) [place] % (Auto) Lymph # (Auto) [place] # (Auto) Seg Neutrophils % Seg Neuts % (Manual) Lymphocytes % (Manual) Monocytes % (Manual) Nucleated RBC % Seg Neutrophils # Seg Neutrophils # Man Lymphocytes # (Manual) Monocytes # (Manual) PT INR APTT D-Dimer Heparin Anti-Xa Level ABG pH POC ABG pCO2 POC ABG pO2 ABG pO2 67.2 L ABG HCO3 34.9 H ABG O2 Saturation ABG Base Excess 9.1 H ABG Hemoglobin 11.6 L ABG Oxyhemoglobin ABG Sodium ABG Potassium ABG Glucose Oxyhemoglobin 93.0 L Sodium Potassium Chloride Carbon Dioxide BUN Creatinine Glucose POC Glucose 162 H 146 H Lactic Acid Calcium Phosphorus Magnesium Ferritin Lactate Dehydrogenase C-Reactive Protein NT-Pro-B Natriuret Pep Total Protein Albumin Triglycerides Arterial Blood Glucose Urine pH Ur Specific [place] Coronavirus (PCR) 03/30/21 03/31/21 03/31/21 23:23 05:44 11:19 WBC RBC Hgb Hct MCV MCHC RDW Plt Count Lymph % (Auto) [place] % (Auto) Lymph # (Auto) [place] # (Auto) Seg Neutrophils % Seg Neuts % (Manual) Lymphocytes % (Manual) Monocytes % (Manual) Nucleated RBC % Seg Neutrophils # Seg Neutrophils # Man Lymphocytes # (Manual) Monocytes # (Manual) PT INR APTT D-Dimer Heparin Anti-Xa Level ABG pH POC ABG pCO2 POC ABG pO2 ABG pO2 ABG HCO3 ABG O2 Saturation ABG Base Excess ABG Hemoglobin ABG Oxyhemoglobin ABG Sodium ABG Potassium ABG Glucose Oxyhemoglobin Sodium Potassium Chloride Carbon Dioxide BUN Creatinine Glucose POC Glucose 138 H 180 H 178 H Lactic Acid Calcium Phosphorus Magnesium Ferritin Lactate Dehydrogenase C-Reactive Protein NT-Pro-B Natriuret Pep Total Protein Albumin Triglycerides Arterial Blood Glucose Urine pH Ur Specific [place] Coronavirus (PCR) 03/31/21 03/31/21 03/31/21 12:50 13:30 16:06 WBC RBC Hgb 11.3 L Hct 35.1 L MCV MCHC RDW 16.5 H Plt Count Lymph % (Auto) 7.6 L [place] % (Auto) 9.5 H Lymph # (Auto) 0.6 L [place] # (Auto) Seg Neutrophils % 78.3 H Seg Neuts % (Manual) Lymphocytes % (Manual) Monocytes % (Manual) Nucleated RBC % Seg Neutrophils # Seg Neutrophils # Man Lymphocytes # (Manual) Monocytes # (Manual) PT INR APTT D-Dimer Heparin Anti-Xa Level ABG pH POC ABG pCO2 POC ABG pO2 ABG pO2 99.4 H ABG HCO3 34.9 H ABG O2 Saturation ABG Base Excess 8.4 H ABG Hemoglobin 11.8 L ABG Oxyhemoglobin ABG Sodium ABG Potassium ABG Glucose Oxyhemoglobin Sodium Potassium Chloride Carbon Dioxide BUN Creatinine Glucose POC Glucose 197 H Lactic Acid Calcium Phosphorus Magnesium Ferritin Lactate Dehydrogenase C-Reactive Protein NT-Pro-B Natriuret Pep Total Protein Albumin Triglycerides Arterial Blood Glucose Urine pH Ur Specific [place] Coronavirus (PCR) 03/31/21 04/01/21 04/01/21 20:51 05:37 07:16 WBC RBC 3.39 L Hgb 10.5 L Hct 31.6 L MCV MCHC RDW 16.1 H Plt Count Lymph % (Auto) [place] % (Auto) Lymph # (Auto) [place] # (Auto) Seg Neutrophils % Seg Neuts % (Manual) Lymphocytes % (Manual) Monocytes % (Manual) Nucleated RBC % Seg Neutrophils # Seg Neutrophils # Man Lymphocytes # (Manual) Monocytes # (Manual) PT INR APTT D-Dimer Heparin Anti-Xa Level ABG pH POC ABG pCO2 POC ABG pO2 ABG pO2 ABG HCO3 ABG O2 Saturation ABG Base Excess ABG Hemoglobin ABG Oxyhemoglobin ABG Sodium ABG Potassium ABG Glucose Oxyhemoglobin Sodium Potassium Chloride Carbon Dioxide BUN Creatinine Glucose POC Glucose 140 H 128 H Lactic Acid Calcium Phosphorus Magnesium Ferritin Lactate Dehydrogenase C-Reactive Protein NT-Pro-B Natriuret Pep Total Protein Albumin Triglycerides Arterial Blood Glucose Urine pH Ur Specific [place] Coronavirus (PCR) 04/01/21 04/01/21 04/01/21 07:16 11:52 16:56 WBC RBC Hgb Hct MCV MCHC RDW Plt Count Lymph % (Auto) [place] % (Auto) Lymph # (Auto) [place] # (Auto) Seg Neutrophils % Seg Neuts % (Manual) Lymphocytes % (Manual) Monocytes % (Manual) Nucleated RBC % Seg Neutrophils # Seg Neutrophils # Man Lymphocytes # (Manual) Monocytes # (Manual) PT INR APTT D-Dimer Heparin Anti-Xa Level ABG pH POC ABG pCO2 POC ABG pO2 ABG pO2 ABG HCO3 ABG O2 Saturation ABG Base Excess ABG Hemoglobin ABG Oxyhemoglobin ABG Sodium ABG Potassium ABG Glucose Oxyhemoglobin Sodium Potassium Chloride Carbon Dioxide BUN Creatinine 0.6 L Glucose 131 H POC Glucose 182 H 179 H Lactic Acid Calcium 8.3 L Phosphorus Magnesium Ferritin Lactate Dehydrogenase C-Reactive Protein NT-Pro-B Natriuret Pep Total Protein Albumin Triglycerides Arterial Blood Glucose Urine pH Ur Specific [place] Coronavirus (PCR) 04/01/21 04/01/21 04/02/21 21:30 23:40 04:26 WBC RBC 3.62 L Hgb 10.8 L Hct 33.9 L MCV MCHC RDW 16.0 H Plt Count Lymph % (Auto) [place] % (Auto) Lymph # (Auto) [place] # (Auto) Seg Neutrophils % Seg Neuts % (Manual) Lymphocytes % (Manual) Monocytes % (Manual) Nucleated RBC % Seg Neutrophils # Seg Neutrophils # Man Lymphocytes # (Manual) Monocytes # (Manual) PT INR APTT D-Dimer Heparin Anti-Xa Level ABG pH POC ABG pCO2 POC ABG pO2 ABG pO2 ABG HCO3 ABG O2 Saturation ABG Base Excess ABG Hemoglobin ABG Oxyhemoglobin ABG Sodium ABG Potassium ABG Glucose Oxyhemoglobin Sodium Potassium Chloride Carbon Dioxide BUN Creatinine Glucose POC Glucose 131 H 129 H Lactic Acid Calcium Phosphorus Magnesium Ferritin Lactate Dehydrogenase C-Reactive Protein NT-Pro-B Natriuret Pep Total Protein Albumin Triglycerides Arterial Blood Glucose Urine pH Ur Specific [place] Coronavirus (PCR) 04/02/21 04/02/21 04/02/21 04:26 05:54 11:35 WBC RBC Hgb Hct MCV MCHC RDW Plt Count Lymph % (Auto) [place] % (Auto) Lymph # (Auto) [place] # (Auto) Seg Neutrophils % Seg Neuts % (Manual) Lymphocytes % (Manual) Monocytes % (Manual) Nucleated RBC % Seg Neutrophils # Seg Neutrophils # Man Lymphocytes # (Manual) Monocytes # (Manual) PT INR APTT D-Dimer Heparin Anti-Xa Level ABG pH POC ABG pCO2 POC ABG pO2 ABG pO2 ABG HCO3 ABG O2 Saturation ABG Base Excess ABG Hemoglobin ABG Oxyhemoglobin ABG Sodium ABG Potassium ABG Glucose Oxyhemoglobin Sodium 136 L Potassium Chloride Carbon Dioxide BUN Creatinine 0.6 L Glucose 152 H POC Glucose 151 H 178 H Lactic Acid Calcium Phosphorus Magnesium Ferritin Lactate Dehydrogenase C-Reactive Protein NT-Pro-B Natriuret Pep Total Protein Albumin Triglycerides Arterial Blood Glucose Urine pH Ur Specific [place] Coronavirus (PCR) 04/02/21 04/02/21 04/02/21 16:11 21:09 23:38 WBC RBC Hgb Hct MCV MCHC RDW Plt Count Lymph % (Auto) [place] % (Auto) Lymph # (Auto) [place] # (Auto) Seg Neutrophils % Seg Neuts % (Manual) Lymphocytes % (Manual) Monocytes % (Manual) Nucleated RBC % Seg Neutrophils # Seg Neutrophils # Man Lymphocytes # (Manual) Monocytes # (Manual) PT INR APTT D-Dimer Heparin Anti-Xa Level ABG pH POC ABG pCO2 POC ABG pO2 ABG pO2 ABG HCO3 ABG O2 Saturation ABG Base Excess ABG Hemoglobin ABG Oxyhemoglobin ABG Sodium ABG Potassium ABG Glucose Oxyhemoglobin Sodium Potassium Chloride Carbon Dioxide BUN Creatinine Glucose POC Glucose 186 H 145 H 152 H Lactic Acid Calcium Phosphorus Magnesium Ferritin Lactate Dehydrogenase C-Reactive Protein NT-Pro-B Natriuret Pep Total Protein Albumin Triglycerides Arterial Blood Glucose Urine pH Ur Specific [place] Coronavirus (PCR) 04/03/21 04/03/21 04/03/21 04:14 04:14 05:27 WBC RBC 3.62 L Hgb 11.0 L Hct 34.0 L MCV MCHC RDW 16.3 H Plt Count Lymph % (Auto) [place] % (Auto) Lymph # (Auto) [place] # (Auto) Seg Neutrophils % Seg Neuts % (Manual) Lymphocytes % (Manual) Monocytes % (Manual) Nucleated RBC % Seg Neutrophils # Seg Neutrophils # Man Lymphocytes # (Manual) Monocytes # (Manual) PT INR APTT D-Dimer Heparin Anti-Xa Level ABG pH POC ABG pCO2 POC ABG pO2 ABG pO2 ABG HCO3 ABG O2 Saturation ABG Base Excess ABG Hemoglobin ABG Oxyhemoglobin ABG Sodium ABG Potassium ABG Glucose Oxyhemoglobin Sodium Potassium Chloride Carbon Dioxide 31 H BUN Creatinine 0.6 L Glucose 155 H POC Glucose 165 H Lactic Acid Calcium Phosphorus Magnesium Ferritin Lactate Dehydrogenase C-Reactive Protein NT-Pro-B Natriuret Pep Total Protein Albumin Triglycerides Arterial Blood Glucose Urine pH Ur Specific [place] Coronavirus (PCR) 04/03/21 04/03/21 04/03/21 11:02 16:19 19:45 WBC RBC Hgb Hct MCV MCHC RDW Plt Count Lymph % (Auto) [place] % (Auto) Lymph # (Auto) [place] # (Auto) Seg Neutrophils % Seg Neuts % (Manual) Lymphocytes % (Manual) Monocytes % (Manual) Nucleated RBC % Seg Neutrophils # Seg Neutrophils # Man Lymphocytes # (Manual) Monocytes # (Manual) PT INR APTT D-Dimer Heparin Anti-Xa Level ABG pH POC ABG pCO2 POC ABG pO2 ABG pO2 ABG HCO3 ABG O2 Saturation ABG Base Excess ABG Hemoglobin ABG Oxyhemoglobin ABG Sodium ABG Potassium ABG Glucose Oxyhemoglobin Sodium Potassium Chloride Carbon Dioxide BUN Creatinine Glucose POC Glucose 161 H 180 H 136 H Lactic Acid Calcium Phosphorus Magnesium Ferritin Lactate Dehydrogenase C-Reactive Protein NT-Pro-B Natriuret Pep Total Protein Albumin Triglycerides Arterial Blood Glucose Urine pH Ur Specific [place] Coronavirus (PCR) 04/04/21 04/04/21 04/04/21 00:21 04:33 04:33 WBC 13.1 H RBC 3.49 L Hgb 10.3 L Hct 32.7 L MCV MCHC RDW 16.1 H Plt Count Lymph % (Auto) [place] % (Auto) Lymph # (Auto) [place] # (Auto) Seg Neutrophils % Seg Neuts % (Manual) Lymphocytes % (Manual) Monocytes % (Manual) Nucleated RBC % Seg Neutrophils # Seg Neutrophils # Man Lymphocytes # (Manual) Monocytes # (Manual) PT INR APTT D-Dimer Heparin Anti-Xa Level ABG pH POC ABG pCO2 POC ABG pO2 ABG pO2 ABG HCO3 ABG O2 Saturation ABG Base Excess ABG Hemoglobin ABG Oxyhemoglobin ABG Sodium ABG Potassium ABG Glucose Oxyhemoglobin Sodium Potassium Chloride Carbon Dioxide 31 H BUN Creatinine 0.4 L Glucose 153 H POC Glucose 140 H Lactic Acid Calcium Phosphorus Magnesium Ferritin Lactate Dehydrogenase C-Reactive Protein NT-Pro-B Natriuret Pep Total Protein Albumin Triglycerides Arterial Blood Glucose Urine pH Ur Specific [place] Coronavirus (PCR) 04/04/21 04/04/21 04/04/21 05:16 11:39 17:22 WBC RBC Hgb Hct MCV MCHC RDW Plt Count Lymph % (Auto) [place] % (Auto) Lymph # (Auto) [place] # (Auto) Seg Neutrophils % Seg Neuts % (Manual) Lymphocytes % (Manual) Monocytes % (Manual) Nucleated RBC % Seg Neutrophils # Seg Neutrophils # Man Lymphocytes # (Manual) Monocytes # (Manual) PT INR APTT D-Dimer Heparin Anti-Xa Level ABG pH POC ABG pCO2 POC ABG pO2 ABG pO2 ABG HCO3 ABG O2 Saturation ABG Base Excess ABG Hemoglobin ABG Oxyhemoglobin ABG Sodium ABG Potassium ABG Glucose Oxyhemoglobin Sodium Potassium Chloride Carbon Dioxide BUN Creatinine Glucose POC Glucose 152 H 154 H 198 H Lactic Acid Calcium Phosphorus Magnesium Ferritin Lactate Dehydrogenase C-Reactive Protein NT-Pro-B Natriuret Pep Total Protein Albumin Triglycerides Arterial Blood Glucose Urine pH Ur Specific [place] Coronavirus (PCR) 04/04/21 04/04/21 04/05/21 20:14 23:16 04:15 WBC RBC 3.21 L Hgb 10.0 L Hct 30.3 L MCV MCHC RDW 16.4 H Plt Count Lymph % (Auto) [place] % (Auto) Lymph # (Auto) [place] # (Auto) Seg Neutrophils % Seg Neuts % (Manual) Lymphocytes % (Manual) Monocytes % (Manual) Nucleated RBC % Seg Neutrophils # Seg Neutrophils # Man Lymphocytes # (Manual) Monocytes # (Manual) PT INR APTT D-Dimer Heparin Anti-Xa Level ABG pH POC ABG pCO2 POC ABG pO2 ABG pO2 ABG HCO3 ABG O2 Saturation ABG Base Excess ABG Hemoglobin ABG Oxyhemoglobin ABG Sodium ABG Potassium ABG Glucose Oxyhemoglobin Sodium Potassium Chloride Carbon Dioxide BUN Creatinine Glucose POC Glucose 161 H 139 H Lactic Acid Calcium Phosphorus Magnesium Ferritin Lactate Dehydrogenase C-Reactive Protein NT-Pro-B Natriuret Pep Total Protein Albumin Triglycerides Arterial Blood Glucose Urine pH Ur Specific [place] Coronavirus (PCR) 04/05/21 04/05/21 04/05/21 04:15 05:34 12:09 WBC RBC Hgb Hct MCV MCHC RDW Plt Count Lymph % (Auto) [place] % (Auto) Lymph # (Auto) [place] # (Auto) Seg Neutrophils % Seg Neuts % (Manual) Lymphocytes % (Manual) Monocytes % (Manual) Nucleated RBC % Seg Neutrophils # Seg Neutrophils # Man Lymphocytes # (Manual) Monocytes # (Manual) PT INR APTT D-Dimer Heparin Anti-Xa Level ABG pH POC ABG pCO2 POC ABG pO2 ABG pO2 ABG HCO3 ABG O2 Saturation ABG Base Excess ABG Hemoglobin ABG Oxyhemoglobin ABG Sodium ABG Potassium ABG Glucose Oxyhemoglobin Sodium Potassium Chloride 97.6 L Carbon Dioxide 32 H BUN Creatinine 0.5 L Glucose 147 H POC Glucose 145 H 173 H Lactic Acid Calcium Phosphorus Magnesium Ferritin Lactate Dehydrogenase C-Reactive Protein NT-Pro-B Natriuret Pep Total Protein Albumin Triglycerides Arterial Blood Glucose Urine pH Ur Specific [place] Coronavirus (PCR) 04/05/21 04/05/21 04/05/21 17:35 21:07 23:15 WBC RBC Hgb Hct MCV MCHC RDW Plt Count Lymph % (Auto) [place] % (Auto) Lymph # (Auto) [place] # (Auto) Seg Neutrophils % Seg Neuts % (Manual) Lymphocytes % (Manual) Monocytes % (Manual) Nucleated RBC % Seg Neutrophils # Seg Neutrophils # Man Lymphocytes # (Manual) Monocytes # (Manual) PT INR APTT D-Dimer Heparin Anti-Xa Level ABG pH POC ABG pCO2 POC ABG pO2 ABG pO2 ABG HCO3 ABG O2 Saturation ABG Base Excess ABG Hemoglobin ABG Oxyhemoglobin ABG Sodium ABG Potassium ABG Glucose Oxyhemoglobin Sodium Potassium Chloride Carbon Dioxide BUN Creatinine Glucose POC Glucose 143 H 157 H 171 H Lactic Acid Calcium Phosphorus Magnesium Ferritin Lactate Dehydrogenase C-Reactive Protein NT-Pro-B Natriuret Pep Total Protein Albumin Triglycerides Arterial Blood Glucose Urine pH Ur Specific [place] Coronavirus (PCR) 04/06/21 04/06/21 04/06/21 04:49 05:14 11:42 WBC RBC Hgb Hct MCV MCHC RDW Plt Count Lymph % (Auto) [place] % (Auto) Lymph # (Auto) [place] # (Auto) Seg Neutrophils % Seg Neuts % (Manual) Lymphocytes % (Manual) Monocytes % (Manual) Nucleated RBC % Seg Neutrophils # Seg Neutrophils # Man Lymphocytes # (Manual) Monocytes # (Manual) PT INR APTT D-Dimer Heparin Anti-Xa Level ABG pH POC ABG pCO2 57.4 H POC ABG pO2 55.1 L ABG pO2 ABG HCO3 ABG O2 Saturation ABG Base Excess ABG Hemoglobin 11.5 L ABG Oxyhemoglobin 87.5 L ABG Sodium ABG Potassium ABG Glucose Oxyhemoglobin Sodium Potassium Chloride Carbon Dioxide BUN Creatinine Glucose POC Glucose 145 H 171 H Lactic Acid Calcium Phosphorus Magnesium Ferritin Lactate Dehydrogenase C-Reactive Protein NT-Pro-B Natriuret Pep Total Protein Albumin Triglycerides Arterial Blood Glucose Urine pH Ur Specific [place] Coronavirus (PCR) 04/06/21 04/06/21 04/06/21 11:50 15:36 15:36 WBC RBC Hgb 10.4 L Hct 32.5 L MCV MCHC RDW Plt Count 444 H Lymph % (Auto) [place] % (Auto) Lymph # (Auto) [place] # (Auto) Seg Neutrophils % Seg Neuts % (Manual) Lymphocytes % (Manual) Monocytes % (Manual) Nucleated RBC % Seg Neutrophils # Seg Neutrophils # Man Lymphocytes # (Manual) Monocytes # (Manual) PT INR APTT 37.1 H D-Dimer Heparin Anti-Xa Level ABG pH 7.341 L POC ABG pCO2 POC ABG pO2 ABG pO2 108.9 H ABG HCO3 38.9 H ABG O2 Saturation ABG Base Excess 10.6 H ABG Hemoglobin 11.5 L ABG Oxyhemoglobin ABG Sodium ABG Potassium ABG Glucose Oxyhemoglobin Sodium Potassium Chloride Carbon Dioxide BUN Creatinine Glucose POC Glucose Lactic Acid Calcium Phosphorus Magnesium Ferritin Lactate Dehydrogenase C-Reactive Protein NT-Pro-B Natriuret Pep Total Protein Albumin Triglycerides Arterial Blood Glucose Urine pH Ur Specific [place] Coronavirus (PCR) 04/06/21 04/07/21 04/07/21 17:57 00:30 00:32 WBC RBC Hgb Hct MCV MCHC RDW Plt Count Lymph % (Auto) [place] % (Auto) Lymph # (Auto) [place] # (Auto) Seg Neutrophils % Seg Neuts % (Manual) Lymphocytes % (Manual) Monocytes % (Manual) Nucleated RBC % Seg Neutrophils # Seg Neutrophils # Man Lymphocytes # (Manual) Monocytes # (Manual) PT INR APTT D-Dimer Heparin Anti-Xa Level < 0.10 L ABG pH POC ABG pCO2 POC ABG pO2 ABG pO2 ABG HCO3 ABG O2 Saturation ABG Base Excess ABG Hemoglobin ABG Oxyhemoglobin ABG Sodium ABG Potassium ABG Glucose Oxyhemoglobin Sodium Potassium Chloride Carbon Dioxide BUN Creatinine Glucose POC Glucose 151 H 149 H Lactic Acid Calcium Phosphorus Magnesium Ferritin Lactate Dehydrogenase C-Reactive Protein NT-Pro-B Natriuret Pep Total Protein Albumin Triglycerides Arterial Blood Glucose Urine pH Ur Specific [place] Coronavirus (PCR) 04/07/21 04/07/21 04/07/21 05:34 06:08 06:08 WBC RBC 3.20 L Hgb 9.6 L Hct 29.8 L MCV MCHC RDW 16.0 H Plt Count 455 H Lymph % (Auto) [place] % (Auto) Lymph # (Auto) [place] # (Auto) Seg Neutrophils % Seg Neuts % (Manual) Lymphocytes % (Manual) Monocytes % (Manual) Nucleated RBC % Seg Neutrophils # Seg Neutrophils # Man Lymphocytes # (Manual) Monocytes # (Manual) PT INR APTT D-Dimer Heparin Anti-Xa Level ABG pH POC ABG pCO2 POC ABG pO2 ABG pO2 ABG HCO3 ABG O2 Saturation ABG Base Excess ABG Hemoglobin ABG Oxyhemoglobin ABG Sodium ABG Potassium ABG Glucose Oxyhemoglobin Sodium Potassium Chloride Carbon Dioxide 35 H BUN Creatinine 0.5 L Glucose 216 H POC Glucose 182 H Lactic Acid Calcium Phosphorus Magnesium Ferritin Lactate Dehydrogenase C-Reactive Protein NT-Pro-B Natriuret Pep Total Protein Albumin Triglycerides Arterial Blood Glucose Urine pH Ur Specific [place] Coronavirus (PCR) 04/07/21 04/07/21 04/07/21 07:55 11:57 17:12 WBC RBC Hgb Hct MCV MCHC RDW Plt Count Lymph % (Auto) [place] % (Auto) Lymph # (Auto) [place] # (Auto) Seg Neutrophils % Seg Neuts % (Manual) Lymphocytes % (Manual) Monocytes % (Manual) Nucleated RBC % Seg Neutrophils # Seg Neutrophils # Man Lymphocytes # (Manual) Monocytes # (Manual) PT INR APTT D-Dimer Heparin Anti-Xa Level < 0.10 L ABG pH POC ABG pCO2 POC ABG pO2 ABG pO2 ABG HCO3 ABG O2 Saturation ABG Base Excess ABG Hemoglobin ABG Oxyhemoglobin ABG Sodium ABG Potassium ABG Glucose Oxyhemoglobin Sodium Potassium Chloride Carbon Dioxide BUN Creatinine Glucose POC Glucose 182 H 165 H Lactic Acid Calcium Phosphorus Magnesium Ferritin Lactate Dehydrogenase C-Reactive Protein NT-Pro-B Natriuret Pep Total Protein Albumin Triglycerides Arterial Blood Glucose Urine pH Ur Specific [place] Coronavirus (PCR) 04/07/21 04/08/21 04/08/21 19:55 00:16 03:57 WBC RBC Hgb Hct MCV MCHC RDW Plt Count Lymph % (Auto) [place] % (Auto) Lymph # (Auto) [place] # (Auto) Seg Neutrophils % Seg Neuts % (Manual) Lymphocytes % (Manual) Monocytes % (Manual) Nucleated RBC % Seg Neutrophils # Seg Neutrophils # Man Lymphocytes # (Manual) Monocytes # (Manual) PT INR APTT D-Dimer Heparin Anti-Xa Level < 0.10 L ABG pH POC ABG pCO2 POC ABG pO2 ABG pO2 ABG HCO3 ABG O2 Saturation ABG Base Excess ABG Hemoglobin ABG Oxyhemoglobin ABG Sodium ABG Potassium ABG Glucose Oxyhemoglobin Sodium Potassium 5.8 H Chloride 95.5 L Carbon Dioxide 37 H BUN Creatinine 0.5 L Glucose 161 H POC Glucose 175 H Lactic Acid Calcium Phosphorus Magnesium Ferritin Lactate Dehydrogenase C-Reactive Protein NT-Pro-B Natriuret Pep Total Protein Albumin Triglycerides Arterial Blood Glucose Urine pH Ur Specific [place] Coronavirus (PCR) 04/08/21 04/08/21 04/08/21 04:00 05:43 09:26 WBC RBC 3.25 L Hgb 9.9 L Hct 30.8 L MCV 95 H MCHC RDW 16.0 H Plt Count 487 H Lymph % (Auto) [place] % (Auto) Lymph # (Auto) [place] # (Auto) Seg Neutrophils % Seg Neuts % (Manual) Lymphocytes % (Manual) Monocytes % (Manual) Nucleated RBC % Seg Neutrophils # Seg Neutrophils # Man Lymphocytes # (Manual) Monocytes # (Manual) PT INR APTT D-Dimer Heparin Anti-Xa Level ABG pH POC ABG pCO2 POC ABG pO2 ABG pO2 ABG HCO3 ABG O2 Saturation ABG Base Excess ABG Hemoglobin ABG Oxyhemoglobin ABG Sodium ABG Potassium ABG Glucose Oxyhemoglobin Sodium Potassium Chloride Carbon Dioxide BUN Creatinine Glucose POC Glucose 162 H 164 H Lactic Acid Calcium Phosphorus Magnesium Ferritin Lactate Dehydrogenase C-Reactive Protein NT-Pro-B Natriuret Pep Total Protein Albumin Triglycerides Arterial Blood Glucose Urine pH Ur Specific [place] Coronavirus (PCR) 04/08/21 04/08/21 04/08/21 11:53 17:19 20:35 WBC RBC Hgb Hct MCV MCHC RDW Plt Count Lymph % (Auto) [place] % (Auto) Lymph # (Auto) [place] # (Auto) Seg Neutrophils % Seg Neuts % (Manual) Lymphocytes % (Manual) Monocytes % (Manual) Nucleated RBC % Seg Neutrophils # Seg Neutrophils # Man Lymphocytes # (Manual) Monocytes # (Manual) PT INR APTT D-Dimer Heparin Anti-Xa Level ABG pH POC ABG pCO2 POC ABG pO2 ABG pO2 ABG HCO3 ABG O2 Saturation ABG Base Excess ABG Hemoglobin ABG Oxyhemoglobin ABG Sodium ABG Potassium ABG Glucose Oxyhemoglobin Sodium Potassium Chloride Carbon Dioxide BUN Creatinine Glucose POC Glucose 170 H 157 H 190 H Lactic Acid Calcium Phosphorus Magnesium Ferritin Lactate Dehydrogenase C-Reactive Protein NT-Pro-B Natriuret Pep Total Protein Albumin Triglycerides Arterial Blood Glucose Urine pH Ur Specific [place] Coronavirus (PCR) 04/08/21 04/09/21 04/09/21 23:52 04:21 04:21 WBC 11.4 H RBC 2.97 L Hgb 8.9 L Hct 27.8 L MCV MCHC RDW 15.8 H Plt Count 485 H Lymph % (Auto) [place] % (Auto) Lymph # (Auto) [place] # (Auto) Seg Neutrophils % Seg Neuts % (Manual) Lymphocytes % (Manual) Monocytes % (Manual) Nucleated RBC % Seg Neutrophils # Seg Neutrophils # Man Lymphocytes # (Manual) Monocytes # (Manual) PT INR APTT D-Dimer Heparin Anti-Xa Level ABG pH POC ABG pCO2 POC ABG pO2 ABG pO2 ABG HCO3 ABG O2 Saturation ABG Base Excess ABG Hemoglobin ABG Oxyhemoglobin ABG Sodium ABG Potassium ABG Glucose Oxyhemoglobin Sodium Potassium Chloride 97.1 L Carbon Dioxide 40 H BUN 21 H Creatinine 0.5 L Glucose 149 H POC Glucose 170 H Lactic Acid Calcium Phosphorus 1.90 L D Magnesium Ferritin Lactate Dehydrogenase C-Reactive Protein NT-Pro-B Natriuret Pep Total Protein Albumin Triglycerides Arterial Blood Glucose Urine pH Ur Specific [place] Coronavirus (PCR) 04/09/21 04/09/21 04/09/21 05:27 11:55 17:11 WBC RBC Hgb Hct MCV MCHC RDW Plt Count Lymph % (Auto) [place] % (Auto) Lymph # (Auto) [place] # (Auto) Seg Neutrophils % Seg Neuts % (Manual) Lymphocytes % (Manual) Monocytes % (Manual) Nucleated RBC % Seg Neutrophils # Seg Neutrophils # Man Lymphocytes # (Manual) Monocytes # (Manual) PT INR APTT D-Dimer Heparin Anti-Xa Level ABG pH POC ABG pCO2 POC ABG pO2 ABG pO2 ABG HCO3 ABG O2 Saturation ABG Base Excess ABG Hemoglobin ABG Oxyhemoglobin ABG Sodium ABG Potassium ABG Glucose Oxyhemoglobin Sodium Potassium Chloride Carbon Dioxide BUN Creatinine Glucose POC Glucose 144 H 190 H 163 H Lactic Acid Calcium Phosphorus Magnesium Ferritin Lactate Dehydrogenase C-Reactive Protein NT-Pro-B Natriuret Pep Total Protein Albumin Triglycerides Arterial Blood Glucose Urine pH Ur Specific [place] Coronavirus (PCR) 04/09/21 04/09/21 04/09/21 20:10 21:12 23:33 WBC RBC Hgb Hct MCV MCHC RDW Plt Count Lymph % (Auto) [place] % (Auto) Lymph # (Auto) [place] # (Auto) Seg Neutrophils % Seg Neuts % (Manual) Lymphocytes % (Manual) Monocytes % (Manual) Nucleated RBC % Seg Neutrophils # Seg Neutrophils # Man Lymphocytes # (Manual) Monocytes # (Manual) PT INR APTT D-Dimer Heparin Anti-Xa Level ABG pH POC ABG pCO2 POC ABG pO2 ABG pO2 68.1 L ABG HCO3 41.3 H ABG O2 Saturation ABG Base Excess 14.6 H ABG Hemoglobin 10.2 L ABG Oxyhemoglobin ABG Sodium ABG Potassium ABG Glucose Oxyhemoglobin 94.7 L Sodium Potassium Chloride Carbon Dioxide BUN Creatinine Glucose POC Glucose 163 H 164 H Lactic Acid Calcium Phosphorus Magnesium Ferritin Lactate Dehydrogenase C-Reactive Protein NT-Pro-B Natriuret Pep Total Protein Albumin Triglycerides Arterial Blood Glucose Urine pH Ur Specific [place] Coronavirus (PCR) 04/10/21 04/10/21 04/10/21 05:26 11:41 13:00 WBC RBC 3.09 L Hgb 9.3 L Hct 28.3 L MCV MCHC RDW 15.8 H Plt Count 480 H Lymph % (Auto) [place] % (Auto) Lymph # (Auto) [place] # (Auto) Seg Neutrophils % Seg Neuts % (Manual) Lymphocytes % (Manual) Monocytes % (Manual) Nucleated RBC % Seg Neutrophils # Seg Neutrophils # Man Lymphocytes # (Manual) Monocytes # (Manual) PT INR APTT D-Dimer Heparin Anti-Xa Level ABG pH POC ABG pCO2 POC ABG pO2 ABG pO2 ABG HCO3 ABG O2 Saturation ABG Base Excess ABG Hemoglobin ABG Oxyhemoglobin ABG Sodium ABG Potassium ABG Glucose Oxyhemoglobin Sodium Potassium Chloride Carbon Dioxide BUN Creatinine Glucose POC Glucose 172 H 150 H Lactic Acid Calcium Phosphorus Magnesium Ferritin Lactate Dehydrogenase C-Reactive Protein NT-Pro-B Natriuret Pep Total Protein Albumin Triglycerides Arterial Blood Glucose Urine pH Ur Specific [place] Coronavirus (PCR) 04/10/21 04/10/21 04/10/21 13:00 17:46 21:37 WBC RBC Hgb Hct MCV MCHC RDW Plt Count Lymph % (Auto) [place] % (Auto) Lymph # (Auto) [place] # (Auto) Seg Neutrophils % Seg Neuts % (Manual) Lymphocytes % (Manual) Monocytes % (Manual) Nucleated RBC % Seg Neutrophils # Seg Neutrophils # Man Lymphocytes # (Manual) Monocytes # (Manual) PT INR APTT D-Dimer Heparin Anti-Xa Level ABG pH POC ABG pCO2 POC ABG pO2 ABG pO2 ABG HCO3 ABG O2 Saturation ABG Base Excess ABG Hemoglobin ABG Oxyhemoglobin ABG Sodium ABG Potassium ABG Glucose Oxyhemoglobin Sodium Potassium Chloride 96.4 L Carbon Dioxide 34 H BUN Creatinine 0.5 L Glucose 165 H POC Glucose 165 H 166 H Lactic Acid Calcium Phosphorus Magnesium Ferritin Lactate Dehydrogenase C-Reactive Protein NT-Pro-B Natriuret Pep Total Protein Albumin Triglycerides Arterial Blood Glucose Urine pH Ur Specific [place] Coronavirus (PCR) 04/10/21 04/11/21 04/11/21 23:56 04:30 05:39 WBC 11.5 H RBC 3.02 L Hgb 8.9 L Hct 27.8 L MCV MCHC RDW 16.0 H Plt Count 505 H Lymph % (Auto) [place] % (Auto) Lymph # (Auto) [place] # (Auto) Seg Neutrophils % Seg Neuts % (Manual) Lymphocytes % (Manual) Monocytes % (Manual) Nucleated RBC % Seg Neutrophils # Seg Neutrophils # Man Lymphocytes # (Manual) Monocytes # (Manual) PT INR APTT D-Dimer Heparin Anti-Xa Level ABG pH POC ABG pCO2 POC ABG pO2 ABG pO2 ABG HCO3 ABG O2 Saturation ABG Base Excess ABG Hemoglobin ABG Oxyhemoglobin ABG Sodium ABG Potassium ABG Glucose Oxyhemoglobin Sodium Potassium Chloride Carbon Dioxide BUN Creatinine Glucose POC Glucose 156 H 164 H Lactic Acid Calcium Phosphorus Magnesium Ferritin Lactate Dehydrogenase C-Reactive Protein NT-Pro-B Natriuret Pep Total Protein Albumin Triglycerides Arterial Blood Glucose Urine pH Ur Specific [place] Coronavirus (PCR) 04/11/21 04/11/21 04/11/21 06:47 06:47 11:29 WBC RBC 3.35 L Hgb 9.8 L Hct 30.7 L MCV MCHC RDW 16.3 H Plt Count 520 H Lymph % (Auto) [place] % (Auto) Lymph # (Auto) [place] # (Auto) Seg Neutrophils % Seg Neuts % (Manual) 76.0 H Lymphocytes % (Manual) 10.0 L Monocytes % (Manual) Nucleated RBC % Seg Neutrophils # Seg Neutrophils # Man 8.3 H Lymphocytes # (Manual) 1.1 L Monocytes # (Manual) PT INR APTT D-Dimer Heparin Anti-Xa Level ABG pH POC ABG pCO2 POC ABG pO2 ABG pO2 ABG HCO3 ABG O2 Saturation ABG Base Excess ABG Hemoglobin ABG Oxyhemoglobin ABG Sodium ABG Potassium ABG Glucose Oxyhemoglobin Sodium Potassium Chloride 97.7 L Carbon Dioxide 34 H BUN Creatinine 0.4 L Glucose 178 H POC Glucose 170 H Lactic Acid Calcium Phosphorus Magnesium Ferritin Lactate Dehydrogenase C-Reactive Protein NT-Pro-B Natriuret Pep Total Protein Albumin Triglycerides Arterial Blood Glucose Urine pH Ur Specific [place] Coronavirus (PCR) 04/11/21 04/11/21 04/11/21 18:17 18:17 18:17 WBC RBC 3.22 L Hgb 9.5 L Hct 29.8 L MCV MCHC RDW 16.0 H Plt Count Lymph % (Auto) [place] % (Auto) Lymph # (Auto) [place] # (Auto) Seg Neutrophils % Seg Neuts % (Manual) Lymphocytes % (Manual) Monocytes % (Manual) Nucleated RBC % Seg Neutrophils # Seg Neutrophils # Man Lymphocytes # (Manual) Monocytes # (Manual) PT INR APTT 61.1 H* D-Dimer Heparin Anti-Xa Level ABG pH POC ABG pCO2 POC ABG pO2 ABG pO2 ABG HCO3 ABG O2 Saturation ABG Base Excess ABG Hemoglobin ABG Oxyhemoglobin ABG Sodium ABG Potassium ABG Glucose Oxyhemoglobin Sodium Potassium Chloride Carbon Dioxide BUN Creatinine 0.3 L Glucose POC Glucose Lactic Acid Calcium Phosphorus Magnesium Ferritin Lactate Dehydrogenase C-Reactive Protein NT-Pro-B Natriuret Pep Total Protein Albumin Triglycerides Arterial Blood Glucose Urine pH Ur Specific [place] Coronavirus (PCR) 04/11/21 04/12/21 04/12/21 18:25 00:19 05:11 WBC RBC 2.92 L Hgb 8.6 L Hct 26.9 L MCV MCHC RDW 16.3 H Plt Count 460 H Lymph % (Auto) [place] % (Auto) Lymph # (Auto) [place] # (Auto) Seg Neutrophils % Seg Neuts % (Manual) Lymphocytes % (Manual) Monocytes % (Manual) Nucleated RBC % Seg Neutrophils # Seg Neutrophils # Man Lymphocytes # (Manual) Monocytes # (Manual) PT INR APTT D-Dimer Heparin Anti-Xa Level ABG pH POC ABG pCO2 POC ABG pO2 ABG pO2 ABG HCO3 ABG O2 Saturation ABG Base Excess ABG Hemoglobin ABG Oxyhemoglobin ABG Sodium ABG Potassium ABG Glucose Oxyhemoglobin Sodium Potassium Chloride Carbon Dioxide BUN Creatinine Glucose POC Glucose 167 H 128 H Lactic Acid Calcium Phosphorus Magnesium Ferritin Lactate Dehydrogenase C-Reactive Protein NT-Pro-B Natriuret Pep Total Protein Albumin Triglycerides Arterial Blood Glucose Urine pH Ur Specific [place] Coronavirus (PCR) 04/12/21 04/12/21 04/12/21 05:11 05:11 06:23 WBC RBC Hgb Hct MCV MCHC RDW Plt Count Lymph % (Auto) [place] % (Auto) Lymph # (Auto) [place] # (Auto) Seg Neutrophils % Seg Neuts % (Manual) Lymphocytes % (Manual) Monocytes % (Manual) Nucleated RBC % Seg Neutrophils # Seg Neutrophils # Man Lymphocytes # (Manual) Monocytes # (Manual) PT INR APTT D-Dimer Heparin Anti-Xa Level 1.03 H ABG pH POC ABG pCO2 POC ABG pO2 ABG pO2 ABG HCO3 ABG O2 Saturation ABG Base Excess ABG Hemoglobin ABG Oxyhemoglobin ABG Sodium ABG Potassium ABG Glucose Oxyhemoglobin Sodium Potassium Chloride Carbon Dioxide 34 H BUN Creatinine 0.3 L Glucose 153 H POC Glucose 162 H Lactic Acid Calcium Phosphorus Magnesium Ferritin Lactate Dehydrogenase C-Reactive Protein NT-Pro-B Natriuret Pep Total Protein Albumin Triglycerides Arterial Blood Glucose Urine pH Ur Specific [place] Coronavirus (PCR) 04/12/21 04/12/21 04/12/21 09:45 11:08 15:56 WBC RBC Hgb Hct MCV MCHC RDW Plt Count Lymph % (Auto) [place] % (Auto) Lymph # (Auto) [place] # (Auto) Seg Neutrophils % Seg Neuts % (Manual) Lymphocytes % (Manual) Monocytes % (Manual) Nucleated RBC % Seg Neutrophils # Seg Neutrophils # Man Lymphocytes # (Manual) Monocytes # (Manual) PT INR APTT D-Dimer Heparin Anti-Xa Level ABG pH POC ABG pCO2 POC ABG pO2 ABG pO2 70.8 L ABG HCO3 41.0 H ABG O2 Saturation ABG Base Excess 13.7 H ABG Hemoglobin 8.3 L ABG Oxyhemoglobin ABG Sodium ABG Potassium ABG Glucose Oxyhemoglobin 94.0 L Sodium Potassium Chloride Carbon Dioxide BUN Creatinine Glucose POC Glucose 174 H 146 H Lactic Acid Calcium Phosphorus Magnesium Ferritin Lactate Dehydrogenase C-Reactive Protein NT-Pro-B Natriuret Pep Total Protein Albumin Triglycerides Arterial Blood Glucose Urine pH Ur Specific [place] Coronavirus (PCR) 04/12/21 04/12/21 04/13/21 21:55 23:25 04:34 WBC 12.5 H RBC 2.97 L Hgb 8.9 L Hct 27.3 L MCV MCHC RDW 16.4 H Plt Count 470 H Lymph % (Auto) [place] % (Auto) Lymph # (Auto) [place] # (Auto) Seg Neutrophils % Seg Neuts % (Manual) Lymphocytes % (Manual) Monocytes % (Manual) Nucleated RBC % Seg Neutrophils # Seg Neutrophils # Man Lymphocytes # (Manual) Monocytes # (Manual) PT INR APTT D-Dimer Heparin Anti-Xa Level ABG pH POC ABG pCO2 POC ABG pO2 ABG pO2 ABG HCO3 ABG O2 Saturation ABG Base Excess ABG Hemoglobin ABG Oxyhemoglobin ABG Sodium ABG Potassium ABG Glucose Oxyhemoglobin Sodium Potassium Chloride Carbon Dioxide BUN Creatinine Glucose POC Glucose 142 H 170 H Lactic Acid Calcium Phosphorus Magnesium Ferritin Lactate Dehydrogenase C-Reactive Protein NT-Pro-B Natriuret Pep Total Protein Albumin Triglycerides Arterial Blood Glucose Urine pH Ur Specific [place] Coronavirus (PCR) 04/13/21 04/13/21 04/13/21 04:34 05:17 11:14 WBC RBC Hgb Hct MCV MCHC RDW Plt Count Lymph % (Auto) [place] % (Auto) Lymph # (Auto) [place] # (Auto) Seg Neutrophils % Seg Neuts % (Manual) Lymphocytes % (Manual) Monocytes % (Manual) Nucleated RBC % Seg Neutrophils # Seg Neutrophils # Man Lymphocytes # (Manual) Monocytes # (Manual) PT INR APTT D-Dimer Heparin Anti-Xa Level ABG pH POC ABG pCO2 POC ABG pO2 ABG pO2 ABG HCO3 ABG O2 Saturation ABG Base Excess ABG Hemoglobin ABG Oxyhemoglobin ABG Sodium ABG Potassium ABG Glucose Oxyhemoglobin Sodium Potassium Chloride 96.6 L Carbon Dioxide 41 H* D BUN Creatinine 0.3 L Glucose 171 H POC Glucose 141 H 149 H Lactic Acid Calcium Phosphorus Magnesium Ferritin Lactate Dehydrogenase C-Reactive Protein NT-Pro-B Natriuret Pep Total Protein Albumin Triglycerides Arterial Blood Glucose Urine pH Ur Specific [place] Coronavirus (PCR) 04/13/21 04/13/21 04/14/21 15:51 23:35 04:32 WBC 13.8 H RBC 2.64 L Hgb 8.0 L Hct 24.1 L MCV MCHC RDW 16.1 H Plt Count Lymph % (Auto) [place] % (Auto) Lymph # (Auto) [place] # (Auto) Seg Neutrophils % Seg Neuts % (Manual) Lymphocytes % (Manual) Monocytes % (Manual) Nucleated RBC % Seg Neutrophils # Seg Neutrophils # Man Lymphocytes # (Manual) Monocytes # (Manual) PT INR APTT D-Dimer Heparin Anti-Xa Level ABG pH POC ABG pCO2 POC ABG pO2 ABG pO2 ABG HCO3 ABG O2 Saturation ABG Base Excess ABG Hemoglobin ABG Oxyhemoglobin ABG Sodium ABG Potassium ABG Glucose Oxyhemoglobin Sodium Potassium Chloride Carbon Dioxide BUN Creatinine Glucose POC Glucose 136 H 167 H Lactic Acid Calcium Phosphorus Magnesium Ferritin Lactate Dehydrogenase C-Reactive Protein NT-Pro-B Natriuret Pep Total Protein Albumin Triglycerides Arterial Blood Glucose Urine pH Ur Specific [place] Coronavirus (PCR) 04/14/21 04/14/21 04/14/21 04:32 05:18 11:03 WBC RBC Hgb Hct MCV MCHC RDW Plt Count Lymph % (Auto) [place] % (Auto) Lymph # (Auto) [place] # (Auto) Seg Neutrophils % Seg Neuts % (Manual) Lymphocytes % (Manual) Monocytes % (Manual) Nucleated RBC % Seg Neutrophils # Seg Neutrophils # Man Lymphocytes # (Manual) Monocytes # (Manual) PT INR APTT D-Dimer Heparin Anti-Xa Level ABG pH POC ABG pCO2 POC ABG pO2 ABG pO2 ABG HCO3 ABG O2 Saturation ABG Base Excess ABG Hemoglobin ABG Oxyhemoglobin ABG Sodium ABG Potassium ABG Glucose Oxyhemoglobin Sodium Potassium Chloride 95.5 L Carbon Dioxide 38 H BUN Creatinine 0.4 L Glucose 141 H POC Glucose 140 H 143 H Lactic Acid Calcium Phosphorus Magnesium Ferritin Lactate Dehydrogenase C-Reactive Protein NT-Pro-B Natriuret Pep Total Protein Albumin Triglycerides Arterial Blood Glucose Urine pH Ur Specific [place] Coronavirus (PCR) 04/14/21 04/14/21 04/14/21 16:38 23:46 Unknown WBC RBC Hgb Hct MCV MCHC RDW Plt Count Lymph % (Auto) [place] % (Auto) Lymph # (Auto) [place] # (Auto) Seg Neutrophils % Seg Neuts % (Manual) Lymphocytes % (Manual) Monocytes % (Manual) Nucleated RBC % Seg Neutrophils # Seg Neutrophils # Man Lymphocytes # (Manual) Monocytes # (Manual) PT INR APTT D-Dimer Heparin Anti-Xa Level ABG pH POC ABG pCO2 POC ABG pO2 ABG pO2 ABG HCO3 ABG O2 Saturation ABG Base Excess ABG Hemoglobin ABG Oxyhemoglobin ABG Sodium ABG Potassium ABG Glucose Oxyhemoglobin Sodium Potassium Chloride Carbon Dioxide BUN Creatinine Glucose POC Glucose 157 H 155 H Lactic Acid Calcium Phosphorus Magnesium Ferritin Lactate Dehydrogenase C-Reactive Protein NT-Pro-B Natriuret Pep Total Protein Albumin Triglycerides Arterial Blood Glucose Urine pH 8.0 H Ur Specific [place] Coronavirus (PCR) 04/15/21 04/15/21 04/15/21 04:44 04:44 05:52 WBC 15.8 H RBC 2.96 L Hgb 8.9 L Hct 27.1 L MCV MCHC RDW 16.5 H Plt Count 507 H Lymph % (Auto) [place] % (Auto) Lymph # (Auto) [place] # (Auto) Seg Neutrophils % Seg Neuts % (Manual) Lymphocytes % (Manual) Monocytes % (Manual) Nucleated RBC % Seg Neutrophils # Seg Neutrophils # Man Lymphocytes # (Manual) Monocytes # (Manual) PT INR APTT D-Dimer Heparin Anti-Xa Level ABG pH POC ABG pCO2 POC ABG pO2 ABG pO2 ABG HCO3 ABG O2 Saturation ABG Base Excess ABG Hemoglobin ABG Oxyhemoglobin ABG Sodium ABG Potassium ABG Glucose Oxyhemoglobin Sodium Potassium Chloride 96.9 L Carbon Dioxide 38 H BUN Creatinine 0.4 L Glucose 163 H POC Glucose 167 H Lactic Acid Calcium Phosphorus Magnesium Ferritin Lactate Dehydrogenase C-Reactive Protein NT-Pro-B Natriuret Pep Total Protein Albumin Triglycerides Arterial Blood Glucose Urine pH Ur Specific [place] Coronavirus (PCR) 04/15/21 04/15/21 04/15/21 11:35 17:20 18:10 WBC RBC Hgb Hct MCV MCHC RDW Plt Count Lymph % (Auto) [place] % (Auto) Lymph # (Auto) [place] # (Auto) Seg Neutrophils % Seg Neuts % (Manual) Lymphocytes % (Manual) Monocytes % (Manual) Nucleated RBC % Seg Neutrophils # Seg Neutrophils # Man Lymphocytes # (Manual) Monocytes # (Manual) PT INR APTT D-Dimer Heparin Anti-Xa Level ABG pH 7.477 H POC ABG pCO2 POC ABG pO2 ABG pO2 ABG HCO3 40.6 H ABG O2 Saturation ABG Base Excess 15.2 H ABG Hemoglobin 9.0 L ABG Oxyhemoglobin ABG Sodium ABG Potassium ABG Glucose Oxyhemoglobin 94.7 L Sodium Potassium Chloride Carbon Dioxide BUN Creatinine Glucose POC Glucose 179 H 165 H Lactic Acid Calcium Phosphorus Magnesium Ferritin Lactate Dehydrogenase C-Reactive Protein NT-Pro-B Natriuret Pep Total Protein Albumin Triglycerides Arterial Blood Glucose Urine pH Ur Specific [place] Coronavirus (PCR) 04/15/21 04/16/21 04/16/21 23:39 04:33 04:33 WBC 13.1 H RBC 3.26 L Hgb 9.5 L Hct 30.2 L MCV MCHC 31 L RDW 16.2 H Plt Count Lymph % (Auto) [place] % (Auto) Lymph # (Auto) [place] # (Auto) Seg Neutrophils % Seg Neuts % (Manual) Lymphocytes % (Manual) Monocytes % (Manual) Nucleated RBC % Seg Neutrophils # Seg Neutrophils # Man Lymphocytes # (Manual) Monocytes # (Manual) PT INR APTT D-Dimer Heparin Anti-Xa Level ABG pH POC ABG pCO2 POC ABG pO2 ABG pO2 ABG HCO3 ABG O2 Saturation ABG Base Excess ABG Hemoglobin ABG Oxyhemoglobin ABG Sodium ABG Potassium ABG Glucose Oxyhemoglobin Sodium Potassium Chloride 95.8 L Carbon Dioxide 34 H BUN 24 H Creatinine 0.4 L Glucose 153 H POC Glucose 155 H Lactic Acid Calcium Phosphorus Magnesium 2.40 H Ferritin Lactate Dehydrogenase C-Reactive Protein NT-Pro-B Natriuret Pep Total Protein Albumin Triglycerides Arterial Blood Glucose Urine pH Ur Specific [place] Coronavirus (PCR) 0204/16/21 04/16/21 04:55 05:29 11:02 WBC RBC Hgb Hct MCV MCHC RDW Plt Count Lymph % (Auto) [place] % (Auto) Lymph # (Auto) [place] # (Auto) Seg Neutrophils % Seg Neuts % (Manual) Lymphocytes % (Manual) Monocytes % (Manual) Nucleated RBC % Seg Neutrophils # Seg Neutrophils # Man Lymphocytes # (Manual) Monocytes # (Manual) PT INR APTT D-Dimer Heparin Anti-Xa Level ABG pH 7.487 H POC ABG pCO2 POC ABG pO2 ABG pO2 75.4 L ABG HCO3 40.6 H ABG O2 Saturation ABG Base Excess 15.3 H ABG Hemoglobin 8.9 L ABG Oxyhemoglobin ABG Sodium ABG Potassium ABG Glucose Oxyhemoglobin Sodium Potassium Chloride Carbon Dioxide BUN Creatinine Glucose POC Glucose 168 H 170 H Lactic Acid Calcium Phosphorus Magnesium Ferritin Lactate Dehydrogenase C-Reactive Protein NT-Pro-B Natriuret Pep Total Protein Albumin Triglycerides Arterial Blood Glucose Urine pH Ur Specific [place] Coronavirus (PCR) Allied health notes reviewed: RT
--- NOTE | 2021-04-16 14:16 | Progress Note ---
Assessment and Plan Assessment and plan: This is a 61-year-old male with past medical history of HTN and DM admitted for sepsis and acute hypoxic respiratory failure 2/2 COVID pneumonia requiring ventilatory support. Hospital Course to Date: 03/09: The patient was seen and evaluated today, and he was found to be hemo dynamically stable. The patient is currently on BiPAP for possible COVID-19 pneumonia. He was started on Lovenox 1mg/kg for DVT ppx in the setting of d- dimer > 10,000. Infectious Disease was consulted. The patient is pending a TTE. 03/10: No acute events overnight, patient was intubated in the afternoon transferred to ICU 03/11: Patient started on Lantus, free water flushes increased, propofol drip resumed and oral antihypertensive added. 03/12: lantus increased, k at 5, will monitor. I updated his family and his stated that he is not vaccinated. He does have HTN and she will call the RN to update home medications. She did say he takes bystolic and amlopine. She inquired about ventilator and lab work. She had no further questions. 03/13: KVNG overnight. Patient remains hyperglycemic, basal insulin adjusted and increased to Q12hrs. Patient is overall net positive since admit X1 dose of IV lasix, repeat BMP this afternoon. 03/14: Failed SAT this am due to increase agitation, tachycardia and hypertension. Remains on propofol and fentanyl gtt. Hyperkalemia treated with PO kayaxalate. Patient responded to IV lasix yesterday additional dose again today for a net negative balance. Repeat BMP this afternoon. Insulin adjusted for hyperglycemia. 03/15: Remains encephalopathic, not following commansd. Orders placed for CT head/Brain and Neuro consulted. Rectal bleeding subsided, most likely due to hemorrhoids. H&H is stable will continue to monitor. Kayaxexalate for high K, repeat labs 4 to 6hrs post treatment. 03/16: Still agiated this am, CT head with no acute Abn. CXR and ABG noted- evolving pna and worsening hypoxia, now with low grade fevers. Sputum culture ordered, IV Abx added, ID on cosult. 03/17: This am ABG noted, hypoxia improved. Continue to wean FiO2 as tolerated. Still with low grade fevers, on IV Abx per ID. Still with periods of confusion despite sedation, seroquel increased. F/u CXR in the am 03/18: still very agitated especially when off sedation, with hypertension and tachycardia. Continue sedation for RASS -2, PRN antihypertensive for SPB greater than 160. This febrile this am, continue current IV abx per ID 03/19: Patient afebrile overnight, continue IV Abx per ID. ABG also improved this am, continue to wean FIO2 as tolerated. PRN antihypertensive for hypertension. 03/20: Hyperkalemia treated with Kayexalate, Good discontinued, vancomycin and cefepime stopped started Bactrim by ID. Steroid taper started. 03/21: BB started for hypertension, Seroquel increased for agitation and Librium started no acute events reported overnight. [facility] made vent changes 03/22: Adjustment to anxiolytics, respiratory rate on ventilator per [facility]. Patient noted to have bleeding hemorrhoids with clot, requested RN to remove bowel management system and will order Preparation H. 03/23: Given no confirmed DVT or PE (only superficial thrombus noted on Dopplers) therapeutic Lovenox changed to prophylactic Lovenox. Started on doxazosin to help with retention. Consulted surgery for tracheostomy and propofol discontinued. 03/24: Surgery consult completed, patient changed to prophylaxis anticoagulation, started on doxazosin yesterday with plans to remove Good catheter in 48 hours. Patient with slight hypokalemia today and given Kayexalate. No acute events reported overnight. 03/25: No acute events reported overnight. Patient remains on fentanyl drip and on CPAP trial this morning. 03/26: no acute events reported overnight. placed on CPAP this AM, remains on fent/librium. scheduled for trach/peg this week. 03/27: Hypoglycemic this am, will decreased lantus to Qhs. Plan for possible Trach and Peg by Gen Surg this am. Case management to arrange possible LTAC placement 03/28: KVNG overnight. Tolerating PST this am. Plan for trach and PEG tomorrow by Gen. Surgery, NPO after midnight. 03/29: No significant changes overnight. Plan for trach and Peg today. Case management to arrange possible LTAC placement 03/30. S/p Trach and PEG, no complications noted. High residual yesterday despite NPO status, reglan added X2 days. Per RN no residual this am, patient is tolerating TF. Continue to advance TF as tolerated. Norvasc added for hypertension. Pitting edema also appreciated, some diuretic might be beneficial, will d/w CCM. Continue daily PST as tolerated. 03/31: Patient remains on the vent still on fentanyl gtt with periods of agitation. PRN analgesia added, plan to start weaning off fentanyl gtt. Febrile this am, completed IV abx course. Will panculture for now, ID is also following. 04/01: Still febrile overnight, cultures result pending, continue IV ABx per ID. Failed PST this am. Continue daily PST and vent wean per [facility]. Case management to arrange possible placement. 04/02: KVNG overnight. Fevers improved overnight, continue to follow cultures data, IV ABx per ID. Continue daily PST and wean vent as per [facility].\ 04/03: Given low procalcitonin, unchanged CXR and cultures with no growth cefepime was discontinued by ID. LTAC evaluation ongoing. No acute events reported overnight. 04/04: IV Lasix stopped today, Seroquel taper started, fentanyl drip on hold and steroids stopped. Pressure support trial again today. 04/05: Patient had to be restarted on fentanyl drip therefore Seroquel was increased back to 250 twice daily and he was started on scheduled narcotics and efforts to wean fentanyl drip. Doxazosin was increased to twice daily as patient still had retention issues on doxazosin once a day. Patient was denied LTAC placement. CPAP trial today. 04/06: Right upper extremity ultrasound obtained due to edema which showed DVT. Patient started on heparin drip. Overnight patient had hypoxia, tachypnea, tachycardia, hypotension and FiO2 was increased to 100%. RT titrating as tolerated. Plan was to start T-piece trials today. Patient has been denied LTAC placement. 04/07: BLE dopplar, continue lasix per [facility], CXR in AM. Increase in fio2 overnight d/t desaturation. Wean FiO2 as tolerated. 04/08: Patient remains on 65% FiO2, s/p Lasix for 3 doses, hyperkalemia noted today and medically treated. [facility] plans to consult heme/onc once FiO2 decreased. Remains on heparin gtt 04/09: No acute events reported overnight, possible heme-onc consult on Saturday or Saturday regarding upper extremity DVT, wean FiO2 as tolerated. Repeat CT head on Monday 04/10: Patient mentation is unchanged, repeat CT head today. Remains on heparin gtt per protocol. Continue daily PST as tolerated. 04/11: Increased work of breathing and high RR overnight, vent FiO2 increased to 55%. Resolved this am, patient is tolerating PST, no acute distress noted. Wean Fio2 as tolerated for SPO2 above 92%, Follow up CXR and ABG in the am. Antihyper tensive regimen adjusted for better BP control. 04/12: Patient with coarse lungs and increased secretion today. This am CXR noted with worsen infiltrate, 40 of Lasix given, repeat CXR in the am. Patient remains afebrile, complete IV Abx course, VSS. Transitioned to PO Eliquis overnight, continue to keep patient net negative for better lung compliance. Continue daily PST as tolerated. 04/13: Patient is off sedation this am. Remains unresponsive. Librium D/C and Seroquel was adjusted to Qhs, PRN analgesia for pain management. Patient responded well to IV lasix, this am CXR with some improvement, additional IV lasix ordered again today. high CO2 also noted from this am, ABG ordered. Patient is tolerating PST this am, SPO2 remains above 95%. Continue daily PST plan to get patient off the vent for possible SNF placemement 04/14: Patient mentation is unchanged despite reducing sedative agents. Will hold all scheduled sedatives agents for now, PRN analgesics for pain management and vent synchrony. Patient spike a temp this am, orders placed for cultures, IV abx per ID. Additional lasix today, F/u CXR in the am. Patient is tolerating PST this am. 04/15: Remains febrile overnight. Culture data pending, back on IV Abx per ID. Gentle fluid management with IV lasix. Keep patient at a net negative balance. Continue daily PST as tolerated. 04/16: Open eyes spontaneously this am, but still not following commands. MRI brain ordered. Continue to avoid any sedative agents. Patient continue to respond very well to IV diuretic, continue gentle diurese X3days as tolerated. Continue daily PST as tolerated. Plan is get patient off the vent for possible SNF placement. Patient remains febrile this am, now cefepine and Vanc, continue IV abx per ID. Assessment and Plan #Acute Hypoxic Respiratory Failure #COVID Pneumonia - Intubated on 03/10 due to worsen hypoxia on BIPAP - 2/2 s/p Tracheostomy - Vent setting:CPAP-40%,8 PS-10 - This am ABG noted - CCM consulted, appreciate recommendations - Continue Nebs per CCM - keep patient net negative for better lung compliance - VAP bundle addressed - Aspiration precaution HOB above 30 - Daily SBT and SAT trials as tolerated - PRN ABG and CXR - Continue SPO2 monitoring for SPO2 goal above 92% #Sepsis #COVID Pneumonia #Leukocytosis #Lactic Acidosis- Resolved - COVID PCR positive - UA neg, Blood cultures and Sputum culture NGTD - repeat Bculture NGTD, 03/17 Sputum Cult + Stenotrophomonas - Infectious disease consulted, appreciate recommendation - S/p Actemra 03/10/2021 - Completed X5days course of IV remdesivir - spike temp today, TMAx 101.3 - Panculture, IV abx per ID - Monitor WBC and temperature curve - Trend CBC #Neuro:Acute Encephalopathy - Off sedation, unresponsive - CT head/brain no acute Abn. - Repeat CT head noted - Librium and seroquel on hold - Avoid benzodiazepine to reduce the possibility of delirium - Prn analgesia for CPOT greater than 3 - Maintenance of sleep-wake cycle - Neurology on consult #CV: Hypertension - 03/09 Echocardiogram shows a mildly dilated ascending aorta, normal LV systolic function, mild concentric LVH, LVEF 60 to 65% - Continue current antihypertensive regimen - PRN Labetalol for SBP above 160 - Continue Blood pressure monitoring per protocol #Urinary retention - Good reinserted for retention - Strict intake and output - Avoid nephrotoxic medications; Renally dose medications - Monitor and replace electrolytes as needed - Trend BMP #Acute right upper extremity DVT - Bilateral lower extremity ultrasounds negative for DVT, superficial thrombus in left gastrocnemius vein - CTA chest shows no gross pulm embolism - bilateral upper extremity ultrasound shows DVT in right upper extremity - Transitioned to PO Eliquis - SCDs to BLE while in bed - Transfuse hemoglobin less than 7 - Monitor for signs of bleeding #Endo:Type 2 DM - Continue high dose SSI Q6hrs - Lantus qHs - Avoid Hypoglycemia The high probability of a clinically significant, sudden or life threatening deterioration of the [Respiratory] system(s) required my full and direct attention, intervention and personal management. The aggregate critical care time was [60] minutes. This time is in addition to time spent performing reported procedures but includes the following: [x] Data Review and interpretation [x] Patient assessment and monitoring of vital signs [x] Documentation [x] Medication orders and management Disposition Plan: ICU Total Time Spent with Patient (Minutes): 60 History Interval history: Patient seen and examined at the bedside. Remains on the vent. Patient opened eyes spontaneously, but did not follow any commands. Otherwise, KVNG overnight Hospitalist Physical - Constitutional Vitals: Temp Pulse Resp BP Pulse Ox 98.5 F 99 H 35 H 114/67 97 04/16/21 11:24 04/16/21 13:38 04/16/21 11:43 04/16/21 13:38 04/16/21 11:43 General appearance: Present: no acute distress, well-nourished, obese, other (Unresponsive) - EENT Eyes: Present: PERRL - Respiratory Respiratory effort: normal Respiratory: bilateral: rhonchi - Cardiovascular Rhythm: regular Heart Sounds: Present: S1 & S2 - Extremities Extremities: no ischemia, pulses intact, pulses symmetrical Extremity abnormal: edema - Peripheral Assessment Generalized Edema Type: Pitting Edema Degree: 3+ Capillary Refill: < 3 seconds Skin Temperature: Warm Peripheral Pulses: within normal limits - Abdominal General gastrointestinal: soft, non-distended, normal bowel sounds - Integumentary Integumentary: Present: clear, warm, dry - Psychiatric Psychiatric: other (LOYDA) - Neurologic Neurologic: other (Open eyes spontaneously, but is not following any commands) - Allied Health Allied health notes reviewed: nursing Results - Labs CBC & Chem 7: 04/16/21 04:33 04/16/21 04:33 Labs: Laboratory Last Values WBC 13.1 K/mm3 (4.5-11.0) H 04/16/21 04:33 RBC 3.26 M/mm3 (3.65-5.03) L 04/16/21 04:33 Hgb 9.5 gm/dl (11.8-15.2) L 04/16/21 04:33 Hct 30.2 % (35.5-45.6) L 04/16/21 04:33 MCV 93 fl (84-94) 04/16/21 04:33 MCH 29 pg (28-32) 04/16/21 04:33 MCHC 31 % (32-34) L 04/16/21 04:33 RDW 16.2 % (13.2-15.2) H 04/16/21 04:33 Plt Count 416 K/mm3 (140-440) 04/16/21 04:33 Lymph % (Auto) 7.6 % (13.4-35.0) L 03/31/21 13:30 [place] % (Auto) 9.5 % (0.0-7.3) H 03/31/21 13:30 Eos % (Auto) 4.1 % (0.0-4.3) 03/31/21 13:30 Baso % (Auto) 0.5 % (0.0-1.8) 03/31/21 13:30 Lymph # (Auto) 0.6 K/mm3 (1.2-5.4) L 03/31/21 13:30 [place] # (Auto) 0.7 K/mm3 (0.0-0.8) 03/31/21 13:30 Eos # (Auto) 0.3 K/mm3 (0.0-0.4) 03/31/21 13:30 Baso # (Auto) 0.0 K/mm3 (0.0-0.1) 03/31/21 13:30 Add Manual Diff Complete 04/11/21 06:47 Total Counted 100 04/11/21 06:47 Seg Neutrophils % 78.3 % (40.0-70.0) H 03/31/21 13:30 Seg Neuts % (Manual) 76.0 % (40.0-70.0) H 04/11/21 06:47 Band Neutrophils % 2.0 % 04/11/21 06:47 Lymphocytes % (Manual) 10.0 % (13.4-35.0) L 04/11/21 06:47 Reactive Lymphs % (Man) 0 % 04/11/21 06:47 Monocytes % (Manual) 7.0 % (0.0-7.3) 04/11/21 06:47 Eosinophils % (Manual) 4.0 % (0.0-4.3) 04/11/21 06:47 Basophils % (Manual) 0 % (0.0-1.8) 04/11/21 06:47 Metamyelocytes % 1.0 % 04/11/21 06:47 Myelocytes % 0 % 04/11/21 06:47 Promyelocytes % 0 % 04/11/21 06:47 Blast Cells % 0 % 04/11/21 06:47 Nucleated RBC % Not Reportable 04/11/21 06:47 Seg Neutrophils # 5.8 K/mm3 (1.8-7.7) 03/31/21 13:30 Seg Neutrophils # Man 8.3 K/mm3 (1.8-7.7) H 04/11/21 06:47 Band Neutrophils # 0.2 K/mm3 04/11/21 06:47 Lymphocytes # (Manual) 1.1 K/mm3 (1.2-5.4) L 04/11/21 06:47 Abs React Lymphs (Man) 0.0 K/mm3 04/11/21 06:47 Monocytes # (Manual) 0.8 K/mm3 (0.0-0.8) 04/11/21 06:47 Eosinophils # (Manual) 0.4 K/mm3 (0.0-0.4) 04/11/21 06:47 Basophils # (Manual) 0.0 K/mm3 (0.0-0.1) 04/11/21 06:47 Metamyelocytes # 0.1 K/mm3 04/11/21 06:47 Myelocytes # 0.0 K/mm3 04/11/21 06:47 Promyelocytes # 0.0 K/mm3 04/11/21 06:47 Blast Cells # 0.0 K/mm3 04/11/21 06:47 WBC Morphology Not Reportable 04/11/21 06:47 Hypersegmented Neuts Not Reportable 04/11/21 06:47 Hyposegmented Neuts Not Reportable 04/11/21 06:47 Hypogranular Neuts Not Reportable 04/11/21 06:47 Smudge Cells Not Reportable 04/11/21 06:47 Toxic Granulation 1+ 04/11/21 06:47 Toxic Vacuolation Not Reportable 04/11/21 06:47 Dohle Bodies Not Reportable 04/11/21 06:47 Pelger-Huet Anomaly Not Reportable 04/11/21 06:47 Mely Rods Not Reportable 04/11/21 06:47 Platelet Estimate Consistent w auto 04/11/21 06:47 Clumped Platelets Not Reportable 04/11/21 06:47 Plt Clumps, EDTA Not Reportable 04/11/21 06:47 Large Platelets Not Reportable 04/11/21 06:47 Giant Platelets Not Reportable 04/11/21 06:47 Platelet Satelliting Not Reportable 04/11/21 06:47 Plt Morphology Comment Not Reportable 04/11/21 06:47 RBC Morphology Not Reportable 04/11/21 06:47 Dimorphic RBCs Not Reportable 04/11/21 06:47 Polychromasia Not Reportable 04/11/21 06:47 Hypochromasia Not Reportable 04/11/21 06:47 Poikilocytosis Not Reportable 04/11/21 06:47 Anisocytosis 1+ 04/11/21 06:47 Microcytosis Not Reportable 04/11/21 06:47 Macrocytosis Not Reportable 04/11/21 06:47 Spherocytes Not Reportable 04/11/21 06:47 Pappenheimer Bodies Not Reportable 04/11/21 06:47 Sickle Cells Not Reportable 04/11/21 06:47 Target Cells Not Reportable 04/11/21 06:47 Tear Drop Cells Not Reportable 04/11/21 06:47 Ovalocytes Not Reportable 04/11/21 06:47 Helmet Cells Not Reportable 04/11/21 06:47 [place] Bodies Not Reportable 04/11/21 06:47 Oliver Rings Not Reportable 04/11/21 06:47 [place] Cells Not Reportable 04/11/21 06:47 Bite Cells Not Reportable 04/11/21 06:47 Crenated Cell Not Reportable 04/11/21 06:47 Elliptocytes Not Reportable 04/11/21 06:47 Acanthocytes (Spur) Not Reportable 04/11/21 06:47 Rouleaux Not Reportable 04/11/21 06:47 Hemoglobin C Crystals Not Reportable 04/11/21 06:47 Schistocytes Not Reportable 04/11/21 06:47 Malaria parasites Not Reportable 04/11/21 06:47 Shaheen Bodies Not Reportable 04/11/21 06:47 Hem Pathologist Commnt No 04/11/21 06:47 PT 13.4 Sec. (12.2-14.9) 04/11/21 18:17 INR 0.92 (0.87-1.13) 04/11/21 18:17 APTT 61.1 Sec. (24.2-36.6) H* 04/11/21 18:17 D-Dimer 1359.12 ng/mlDDU (0-234) H 03/17/21 04:40 Heparin Anti-Xa Level 1.03 U.I./ml (0.3-0.7) H 04/12/21 05:11 ABG pH 7.487 pH Units (7.350-7.450) H 04/16/21 04:55 POC ABG pCO2 57.4 mmHg (32.0-48.0) H 04/06/21 04:49 ABG pCO2 54.8 mm Hg 04/16/21 04:55 POC ABG pO2 55.1 mmHg (83-108) L 04/06/21 04:49 ABG pO2 75.4 mm Hg (80.0-90.0) L 04/16/21 04:55 POC ABG HCO3 36.2 04/06/21 04:49 ABG HCO3 40.6 mmol/L (20.0-26.0) H 04/16/21 04:55 ABG O2 Saturation 97.2 % (95.0-99.0) 04/16/21 04:55 ABG O2 Content 12.0 (0.0-44) 04/16/21 04:55 POC ABG Base Excess 10.0 04/06/21 04:49 ABG Base Excess 15.3 mmol/L (-2.0-3.0) H 04/16/21 04:55 ABG Hemoglobin 8.9 gm/dl (14.0-18.0) L 04/16/21 04:55 ABG Oxyhemoglobin 87.5 (94-98) L 04/06/21 04:49 ABG Carboxyhemoglobin 1.7 % (0.0-5.0) 04/16/21 04:55 ABG Methemoglobin 0.6 % (0.0-1.5) 04/16/21 04:55 ABG Sodium 134.2 mmol/L (136.0-145.0) L 03/12/21 21:54 ABG Potassium 4.9 mmol/L (3.40-4.50) H 03/12/21 21:54 ABG Chloride 99.0 mmol/L (98-107) 03/12/21 21:54 ABG Glucose 306 mg/dL (65-95) H 03/12/21 21:54 Oxyhemoglobin 95.0 % (95.0-99.0) 04/16/21 04:55 Carboxyhemoglobin 0.8 (0.5-1.5) 04/06/21 04:49 FiO2 40 % 04/16/21 04:55 FiO2 % 40.0 04/06/21 04:49 Sodium 139 mmol/L (137-145) 04/16/21 04:33 Potassium 4.0 mmol/L (3.6-5.0) 04/16/21 04:33 Chloride 95.8 mmol/L (98-107) L 04/16/21 04:33 Carbon Dioxide 34 mmol/L (22-30) H 04/16/21 04:33 Anion Gap 13 mmol/L 04/16/21 04:33 BUN 24 mg/dL (9-20) H 04/16/21 04:33 Creatinine 0.4 mg/dL (0.8-1.3) L 04/16/21 04:33 Estimated GFR > 60 ml/min 04/16/21 04:33 BUN/Creatinine Ratio 60 % 04/16/21 04:33 Glucose 153 mg/dL (75-100) H 04/16/21 04:33 POC Glucose 170 mg/dL (70-105) H 04/16/21 11:02 Lactic Acid 1.90 mmol/L (0.7-2.0) 03/08/21 23:51 Calcium 9.6 mg/dL (8.4-10.2) 04/16/21 04:33 Phosphorus 3.50 mg/dL (2.5-4.5) 04/16/21 04:33 Magnesium 2.40 mg/dL (1.7-2.3) H 04/16/21 04:33 Ferritin 976.4 ng/mL (30.0-300.0) H 03/15/21 04:00 Total Bilirubin 0.20 mg/dL (0.1-1.2) 03/12/21 08:03 AST 10 units/L (5-40) 03/12/21 08:03 ALT 16 units/L (7-56) 03/12/21 08:03 Alkaline Phosphatase 77 units/L (35-129) 03/12/21 08:03 Lactate Dehydrogenase 630 units/L (91-180) H 03/15/21 06:06 C-Reactive Protein 0.40 mg/dL (0.00-1.30) 03/17/21 04:40 NT-Pro-B Natriuret Pep 1053 pg/mL (0-900) H 03/08/21 20:24 Total Protein 6.0 g/dL (6.3-8.2) L 03/12/21 08:03 Albumin 2.9 g/dL (3.9-5) L 03/12/21 08:03 Albumin/Globulin Ratio 0.9 % 03/12/21 08:03 Triglycerides 305 mg/dL (2-149) H 03/22/21 07:26 Procalcitonin 0.17 ng/mL (<0.15) 04/01/21 07:16 Arterial Blood Glucose 306 mg/dL (65-95) H 03/12/21 21:54 Arterial Blood Ionized Calcium 5.0 mg/dL (4.6-5.3) 03/12/21 21:54 Urine Color Yellow (Yellow) 04/14/21 Unknown Urine Turbidity Clear (Clear) 04/14/21 Unknown Urine pH 8.0 (5.0-7.0) H 04/14/21 Unknown Ur Specific Lowgap 1.009 (1.003-1.030) 04/14/21 Unknown Urine Protein <15 mg/dl mg/dL (Negative) 04/14/21 Unknown Urine Glucose (UA) Neg mg/dL (Negative) 04/14/21 Unknown Urine Ketones Neg mg/dL (Negative) 04/14/21 Unknown Urine Blood Neg (Negative) 04/14/21 Unknown Urine Nitrite Neg (Negative) 04/14/21 Unknown Urine Bilirubin Neg (Negative) 04/14/21 Unknown Urine Urobilinogen 2.0 mg/dL (<2.0) 04/14/21 Unknown Ur Leukocyte Esterase Neg (Negative) 04/14/21 Unknown Urine WBC (Auto) < 1.0 /HPF (0.0-6.0) 04/14/21 Unknown Urine RBC (Auto) < 1.0 /HPF (0.0-6.0) 04/14/21 Unknown Urine Bacteria (Auto) 1+ /HPF (Negative) 03/09/21 04:10 Urine Mucus Few /HPF 03/09/21 04:10 Coronavirus (PCR) Positive (Negative) A 03/09/21 08:00 Miscellaneous Test Flexitest 1 03/16/21 13:14 Microbiology: Microbiology 04/14/21 08:26 Peripheral/Venous Blood Culture - Preliminary NO GROWTH AFTER 48 HOURS 04/14/21 08:26 Peripheral/Venous Blood Culture - Preliminary NO GROWTH AFTER 48 HOURS 04/14/21 08:17 Tracheal Aspirate Sputum Culture - Preliminary Staphylococcus Aureus Good/IV: Voiding Method Indwelling Catheter Active Medications - Current Medications Current Medications: Generic Name Dose Route Start Last Admin Trade Name Freq PRN Reason Stop Dose Admin Acetaminophen 650 mg 03/09/21 01:26 04/16/21 04:56 Acetaminophen 325 Mg Tab PO 650 mg Q4H PRN Administration Pain MILD(1-3)/Fever >100.5/RAYO Albuterol 2.5 mg 03/09/21 01:26 03/18/21 21:06 Albuterol 2.5 Mg/3 Ml Nebu IH 2.5 mg Q4HRT PRN Administration Shortness Of Breath Amlodipine Besylate 10 mg 04/11/21 10:00 04/16/21 09:41 Amlodipine 5 Mg Tab PO 10 mg QDAY BLANCA Administration Apixaban 10 mg 04/11/21 22:00 04/16/21 09:38 Apixaban 5 Mg Tab PO 04/18/21 10:01 10 mg Q12HR BLANCA Administration Protocol Apixaban 5 mg 04/18/21 22:00 Apixaban 5 Mg Tab PO Q12HR BLANCA Protocol Arformoterol Tartrate 15 mcg 03/11/21 20:00 04/16/21 08:45 Arformoterol 15 Mcg/2 Ml Nebu IH 15 mcg Q12HRT BLANCA Administration Bisacodyl 10 mg 03/26/21 13:43 03/26/21 13:51 Bisacodyl 10 Mg Rect Supp [place] 10 mg QDAY PRN Administration Constipation Budesonide 0.5 mg 04/06/21 20:00 04/16/21 08:45 Budesonide 0.5 Mg/2 Ml Nebu IH 0.5 mg Q12HRT BLANCA Administration Dextrose 0 ml 03/20/21 10:52 Dextrose 10% *Hypoglycemia IV PRN PRN Hypoglycemia Doxazosin Mesylate 1 mg 04/05/21 22:00 04/16/21 09:39 Doxazosin 1 Mg Tab PO 1 mg BID BLANCA Administration Famotidine 20 mg 03/12/21 22:00 04/16/21 09:39 Famotidine 20 Mg Tab FEEDTUBE 20 mg BID BLANCA Administration Fentanyl 50 mcg 04/14/21 11:00 04/14/21 21:37 Fentanyl 100 Mcg/2 Ml Inj IV 50 mcg Q2HR PRN Administration COPT greater than 3 Furosemide 40 mg 04/16/21 10:00 04/16/21 09:38 Furosemide 40 Mg/4 Ml Inj IV 04/19/21 09:59 40 mg QDAY BLANCA Administration Hydralazine HCl 50 mg 03/23/21 14:26 04/16/21 13:38 Hydralazine 25 Mg Tab PO 50 mg Q8HR BLANCA Administration Cefepime HCl 2 gm in 100 mls @ 200 mls/hr 04/14/21 15:00 04/16/21 13:37 Cefepime/Ns 2 Gm/100 Ml IV 200 mls/hr Q8HR BLANCA Administration Protocol Vancomycin HCl 1,750 mg/ 535 mls @ 333 mls/hr 04/15/21 15:00 04/16/21 02:42 Sodium Chloride IV 333 mls/hr Q12H BLANCA Administration Protocol Insulin Glargine 18 units 04/07/21 22:00 04/15/21 21:35 Insulin Glargine 100 Units/Ml SUB-Q 18 units QHS BLANCA Administration Insulin Human Lispro 0 unit 03/11/21 18:00 04/16/21 13:37 Insulin Lispro 100 Unit/Ml SUB-Q 3 unit Q6HR BLANCA Administration Protocol Metoprolol Tartrate 12.5 mg 03/21/21 22:00 04/16/21 09:38 Metoprolol Tartrate 25 Mg Tab PO 12.5 mg BID BLANCA Administration Ondansetron HCl 4 mg 03/09/21 01:26 04/13/21 16:17 Ondansetron 4 Mg/2 Ml Inj IV 4 mg Q8H PRN Administration Nausea And Vomiting Oxycodone HCl 5 mg 04/13/21 12:34 04/14/21 18:09 Oxycodone 5 Mg Tab PO 5 mg Q6HR PRN Administration Pain, Moderate (4-6) Phenyleph/Shark Oil/Min Oil/Petrol 1 applic 03/22/21 17:35 04/06/21 04:04 Pe/Mo/Pet,Wh 10 Applic/28 Gm Tube [place] 1 applic Q6HR PRN Administration Hemorrhoids Polyethylene Glycol 17 gm 04/02/21 10:00 04/16/21 09:39 Polyethylene Glycol 3350 17 Gm Powder FEEDTUBE Not Given QDAY BLANCA Senna/Docusate Sodium 2 tab 04/02/21 10:00 04/16/21 09:42 Sennosides/Docusate Sodium 8.6/50 Mg Tab FEEDTUBE Not Given BID BLANCA Sodium Chloride 10 ml 03/09/21 10:00 04/16/21 09:42 Sodium Chloride 0.9% 10 Ml Flush Syringe IV 10 ml BID BLANCA Administration Sodium Chloride 10 ml 03/09/21 01:26 04/10/21 21:07 Sodium Chloride 0.9% 10 Ml Flush Syringe IV 10 ml PRN PRN Administration LINE FLUSH Sodium Chloride 10 ml 03/20/21 09:48 Sodium Chloride 0.9% 50 Ml Ivpb IV PRN PRN FLUSH Nutrition/Malnutrition Assess - Dietary Evaluation Nutrition/Malnutrition Findings: Nutrition Notes Start: 03/09/21 08:49 Freq: Status: Active Protocol: Document 04/14/21 14:43 [facility] (Rec: 04/14/21 14:45 [facility] [id number]) Nutrition Notes Initial or Follow up Reassessment Current Diagnosis Diabetes,Sepsis,Hypertension, Respiratory Failure Other Pertinent Diagnosis COVID-19, Bilateral Pneumonia. Current Diet TF-Glucerna 1.2 at 70 ml/hr Labs/Tests reviewed Pertinent Medications reviewed Height 5 ft 11 in Weight 122.4 kg [place] Body Weight (kg) 78.18 BMI 37.6 Weight Status Obese Subjective/Other Information Pt remains on vent support. Spoke with RN via phone (14:18 ); pt continues to tolerate TF at goal rate. Percent of energy/protein needs met: 82% energy 78% pro Burn Absent Trauma Absent #1 Nutrition Diagnosis Inadequate oral intake Diagnosis Progress(for reassessment Continues documentation) Is patient on ventilator? Yes Is Patient Ambulatory and/or Out of Bed No REE-([place]-St. Jeor-confined to bed) 0963.382 Calculation Used for Recommendations 70-80% energy needs Additional Notes Energy needs: 3936-7530 kcal/ day Pro needs 1.3g/kg adjBW: 130g/ day Fluid needs 1ml/kcal Nutrition Intervention Nutrition Support: Continue Glucerna 1.2 at 70ml/ hr with 110ml water flush q4h. Kcal 2,016 Protein (gm) 101 Carbohydrates (gm) 192 Fat (gm) 101 Fluid (mL) 1,352 Fiber (gm) 27 Goal #1 TF tolerance Goal #2 TF to meet at least 75% energy and pro needs Follow-Up By: 04/21/21 Additional Comments F/U: stable TF, vent status, wt
[2021-04-16] MEDS: INSULIN GLARGINE 100 UNITS/ML SUB-Q SCH (21:18)
[2021-04-17] MEDS: INSULIN LISPRO 100 UNIT/ML SUB-Q SCH ×4 (00:21→17:16)
--- NOTE | 2021-04-17 02:41 | XRay Report ---
XR chest 1V ap INDICATION / CLINICAL INFORMATION: Hypoxia. COMPARISON: 04/15/2021 FINDINGS: SUPPORT DEVICES: Unchanged. HEART /PULMONARY VASCULATURE: Unchanged. LUNGS / PLEURA: Mild improvement in bilateral pulmonary opacities. No pneumothorax. IMPRESSION: 1. Mild improvement in pulmonary opacities. Signer Name: Jaya Fernandes MD Signed: 04/17/2021 2:36 AM Workstation Name: [id number]
[2021-04-17] MEDS: VANCOMYCIN 1,750 MG in SODIUM CHLORIDE 0.9% 500 ML 500 ML IV SCH ×2 (03:05→15:50)
[2021-04-17 05:25] LABS: Blood Urea Nitrogen 23 mg/dL (9-20); Calcium 8.9 mg/dL (8.4-10.2); Hematocrit 27.2 % (35.5-45.6); Hemoglobin 8.9 gm/dl (11.8-15.2); Hemolysis Index 12; Mean Corpuscular HGB Conc 33 % (32-34); Mean Corpuscular Volume 91 fl (84-94); Platelet Count 401 K/mm3 (140-440)
[2021-04-17 05:42] LABS: BUN/Creatinine Ratio 58
[2021-04-17] MEDS: hydrALAZINE 25 MG TAB PO SCH ×3 (05:44→21:23)
[2021-04-17] MEDS: CEFEPIME/NS 2 GM/100 ML 2 GM/100 ML BAG IV SCH ×3 (05:44→21:25)
[2021-04-17] MEDS: BUDESONIDE 0.5 MG/2 ML NEBU IH SCH ×2 (07:47→19:45)
[2021-04-17] MEDS: ARFORMOTEROL 15 MCG/2 ML NEBU IH SCH ×2 (07:47→19:45)
[2021-04-17] MEDS: amLODIPine 5 MG TAB PO SCH (09:14)
[2021-04-17] MEDS: METOPROLOL TARTRATE 25 MG TAB PO SCH ×2 (09:14→21:24)
[2021-04-17] MEDS: APIXABAN 5 MG TAB PO SCH ×2 (09:15→21:26)
[2021-04-17] MEDS: FAMOTIDINE 20 MG TAB FEEDTUBE SCH ×2 (09:15→21:26)
[2021-04-17] MEDS: DOXAZOSIN 1 MG TAB PO SCH ×2 (09:15→21:26)
[2021-04-17] MEDS: SENNOSIDES/DOCUSATE SODIUM 8.6/50 MG TAB FEEDTUBE SCH ×2 (09:16→21:24)
[2021-04-17] MEDS: POLYETHYLENE GLYCOL 3350 17 GM POWDER FEEDTUBE SCH (09:16)
[2021-04-17] MEDS: FUROSEMIDE 40 MG/4 ML INJ IV SCH (09:16)
--- NOTE | 2021-04-17 12:42 | Progress Note ---
Assessment and Plan Acute hypoxemic respiratory failure, on continuous noninvasive ventilation COVID-19 infection Bilateral pneumonia History of diabetes Obesity Hypertension Leukocytosis Possible venous thromboembolic phenomena with significantly elevated D-dimers DM II Elevated serum inflammatory markers to include CRP levels, ferritin and LDH - continue gentle diuresis while monitoring electrolytes - follow brain MRI - begin ATP trials in am as tolerated - discontinue Good catheter - begin Lisinopril 20 mg p.o. bid re: elevated BP's - continue LTAC evaluation - continue care as below otherwise; - continue Daily SAT and SBT assessment as tolerated - continue to wean supplemental oxygen for target O2 sat's > 90% acutely - VAP bundle addressed - continue lung protective strategies - continue bronchodilators with routiune trach care and pulmonary hygiene per RT - wean per pulmonary driven protocols otherwise - continue accuchecks with glycemic control per SSI (While critically ill target blood glucose of 140-180 mg/dL; avoid hypoglycemia) - sedation prn for target RASS 0 to -1 - avoid nephrotoxins, renally dose all medications - avoid benzodiazepine's, reduce the possibility of delirium - AB's per ID rec's - prn analgesia per pain score - Maintenance of sleep-wake cycle, avoid delirium - G.I. & VTE prophylaxis - PT/OT/ROM exercises - mobility protocols for pressure ulcer prophylaxis - Monitor hemodynamics closely - continue other care per attending / other consultants - discharge planning ongoing concurrently COVID SPECIFIC INTERVENTIONS - Remdesivir as per ID/Pulmonary developed protocols (received) - continue systemic steroids for severe COVID-19 infection empirically ([place]) - follow repeat COVID tests results - zinc and vitamin C supplementation - Monitor inflammatory markers per facility protocol - ferritin, Ddimer, CRP - therapeutic anticoagulation per system Protocol based on d-dimer and clinical considerations (treatment dose) - contact and airborne isolation discontinued .... Re-evaluate in am & prn CONDITION: CRITICAL PROGNOSIS: GUARDED CODE STATUS: FULL CODE The high probability of a clinically significant, sudden or life-threatening deterioration of the [respiratory, cardiovascular & hematologic] system(s) required my full and direct attention, intervention and personal management. The aggregate critical care time was [35] minutes without overlap. Time includes spent on; [x] Data Review and interpretation [x] Patient assessment and monitoring of vital signs [x] Documentation [x] Medication orders and management Subjective Date of service: 04/17/21 Principal diagnosis: COVID-19 infection; DM II; Bilateral pneumonia; Obesity; HTN Interval history: Patient is seen today for: Acute hypoxemic respiratory failure; COVID-19 infection; DM II; Bilateral pneumonia; Obesity; HTN Seen and examined at bedside; 24hour events reviewed; nursing and respiratory care staff consulted; no adverse overnight events reported to me; resting in bed; remains on MVS; tolerating SBT well today; responds appropriately to simple commands; no N/V/F/C Objective Vital Signs - 12hr 04/17/21 04/17/21 04/17/21 01:00 01:30 02:00 Temperature Pulse Rate 87 87 85 Pulse Rate [ Bilateral Throughout] Pulse Rate [ From Monitor] Respiratory 29 H 26 H 27 H Rate Respiratory Rate [Bilateral Throughout] Blood Pressure 127/69 120/68 120/68 O2 Sat by Pulse 98 100 98 Oximetry O2 Sat by Pulse Oximetry [ Assessment] 04/17/21 04/17/21 04/17/21 02:30 03:00 03:19 Temperature Pulse Rate 90 89 87 Pulse Rate [ Bilateral Throughout] Pulse Rate [ From Monitor] Respiratory 26 H 26 H Rate Respiratory Rate [Bilateral Throughout] Blood Pressure 131/74 131/74 140/83 O2 Sat by Pulse 99 98 99 Oximetry O2 Sat by Pulse Oximetry [ Assessment] 04/17/21 04/17/21 04/17/21 03:30 04:00 04:30 Temperature 98.3 F Pulse Rate 86 91 H 85 Pulse Rate [ Bilateral Throughout] Pulse Rate [ From Monitor] Respiratory 29 H 31 H 26 H Rate Respiratory Rate [Bilateral Throughout] Blood Pressure 140/83 140/83 137/93 O2 Sat by Pulse 99 98 99 Oximetry O2 Sat by Pulse Oximetry [ Assessment] 04/17/21 04/17/21 04/17/21 05:00 05:30 05:44 Temperature Pulse Rate 86 87 86 Pulse Rate [ Bilateral Throughout] Pulse Rate [ From Monitor] Respiratory 27 H 25 H Rate Respiratory Rate [Bilateral Throughout] Blood Pressure 137/93 129/75 137/93 O2 Sat by Pulse 99 99 Oximetry O2 Sat by Pulse Oximetry [ Assessment] 04/17/21 04/17/21 04/17/21 06:00 06:30 07:00 Temperature Pulse Rate 89 88 84 Pulse Rate [ Bilateral Throughout] Pulse Rate [ From Monitor] Respiratory 28 H 25 H 26 H Rate Respiratory Rate [Bilateral Throughout] Blood Pressure 129/75 124/67 124/67 O2 Sat by Pulse 99 100 99 Oximetry O2 Sat by Pulse Oximetry [ Assessment] 04/17/21 04/17/21 04/17/21 07:30 07:47 08:00 Temperature 99.6 F Pulse Rate 86 86 85 Pulse Rate [ 88 Bilateral Throughout] Pulse Rate [ 85 From Monitor] Respiratory 24 23 Rate Respiratory 24 Rate [Bilateral Throughout] Blood Pressure 118/62 118/62 118/62 O2 Sat by Pulse 98 98 99 Oximetry O2 Sat by Pulse 99 Oximetry [ Assessment] 04/17/21 04/17/21 04/17/21 08:30 09:00 09:14 Temperature Pulse Rate 87 89 87 Pulse Rate [ Bilateral Throughout] Pulse Rate [ From Monitor] Respiratory 28 H 31 H Rate Respiratory Rate [Bilateral Throughout] Blood Pressure 118/64 118/64 120/61 O2 Sat by Pulse 98 98 Oximetry O2 Sat by Pulse Oximetry [ Assessment] 04/17/21 04/17/21 04/17/21 09:15 09:30 10:00 Temperature Pulse Rate 88 88 88 Pulse Rate [ Bilateral Throughout] Pulse Rate [ From Monitor] Respiratory 30 H 32 H Rate Respiratory Rate [Bilateral Throughout] Blood Pressure 120/61 120/61 120/61 O2 Sat by Pulse 99 99 Oximetry O2 Sat by Pulse Oximetry [ Assessment] 04/17/21 04/17/21 04/17/21 10:30 11:00 11:29 Temperature Pulse Rate 86 85 90 Pulse Rate [ Bilateral Throughout] Pulse Rate [ From Monitor] Respiratory 31 H 32 H 30 H Rate Respiratory Rate [Bilateral Throughout] Blood Pressure 119/67 119/67 119/63 O2 Sat by Pulse 98 99 97 Oximetry O2 Sat by Pulse Oximetry [ Assessment] 04/17/21 04/17/21 04/17/21 11:30 12:00 12:30 Temperature 99.4 F Pulse Rate 89 90 89 Pulse Rate [ Bilateral Throughout] Pulse Rate [ From Monitor] Respiratory 30 H 35 H 33 H Rate Respiratory Rate [Bilateral Throughout] Blood Pressure 119/63 119/63 117/61 O2 Sat by Pulse 97 96 96 Oximetry O2 Sat by Pulse Oximetry [ Assessment] Constitutional: no acute distress, other (elderly obese male with mildly increased respiratory effort at rest) Eyes: non-icteric, other ENT: oropharynx moist, other (+ midline tracheostomy) Neck: supple, no lymphadenopathy, lymphadenopathy, no JVD, other (large circumference) Effort: mildly labored Ascultation: Bilateral: diminished breath sounds, rhonchi Percussion: Bilateral: not dull Cardiovascular: regular rate and rhythm, other (tachycardia, S1,S2) Gastrointestinal: normoactive bowel sounds, soft, non-tender, non-distended (protuberant), other (Good in place) Integumentary: normal Extremities: no cyanosis, pulses normal, no ischemia or petechiae, edema (upper extremities), other Neurologic: pupils equal and round, other (follows simple prompts) Psychiatric: other (unable to assess re: AMS) CBC and BMP: 04/17/21 04:25 04/17/21 04:25 ABG, PT/INR, D-dimer: ABG ABG pH 7.487 pH Units (7.350-7.450) H 04/16/21 04:55 POC ABG pCO2 57.4 mmHg (32.0-48.0) H 04/06/21 04:49 ABG pCO2 54.8 mm Hg 04/16/21 04:55 POC ABG pO2 55.1 mmHg (83-108) L 04/06/21 04:49 ABG pO2 75.4 mm Hg (80.0-90.0) L 04/16/21 04:55 POC ABG HCO3 36.2 04/06/21 04:49 ABG O2 Saturation 97.2 % (95.0-99.0) 04/16/21 04:55 PT/INR, D-dimer PT 13.4 Sec. (12.2-14.9) 04/11/21 18:17 INR 0.92 (0.87-1.13) 04/11/21 18:17 D-Dimer 1359.12 ng/mlDDU (0-234) H 03/17/21 04:40 Abnormal lab findings: Abnormal Labs 03/08/21 03/08/21 03/08/21 20:24 20:24 20:24 WBC 22.6 H RBC 5.44 H Hgb 15.7 H Hct 49.2 H MCV MCHC RDW Plt Count Lymph % (Auto) [place] % (Auto) Lymph # (Auto) [place] # (Auto) Seg Neutrophils % Seg Neuts % (Manual) 83.0 H Lymphocytes % (Manual) 9.0 L Monocytes % (Manual) 8.0 H Nucleated RBC % Seg Neutrophils # Seg Neutrophils # Man 18.8 H Lymphocytes # (Manual) Monocytes # (Manual) 1.8 H PT 16.1 H INR 1.17 H APTT D-Dimer > 13804 H Heparin Anti-Xa Level ABG pH POC ABG pCO2 POC ABG pO2 ABG pO2 ABG HCO3 ABG O2 Saturation ABG Base Excess ABG Hemoglobin ABG Oxyhemoglobin ABG Sodium ABG Potassium ABG Glucose Oxyhemoglobin Sodium 136 L Potassium Chloride 93.9 L Carbon Dioxide BUN 29 H Creatinine Glucose 208 H POC Glucose Lactic Acid Calcium Phosphorus Magnesium Ferritin Lactate Dehydrogenase 624 H C-Reactive Protein 18.00 H NT-Pro-B Natriuret Pep 1053 H Total Protein Albumin Triglycerides Arterial Blood Glucose Urine pH Ur Specific [place] Coronavirus (PCR) 03/08/21 03/08/21 03/09/21 20:24 20:24 04:10 WBC RBC Hgb Hct MCV MCHC RDW Plt Count Lymph % (Auto) [place] % (Auto) Lymph # (Auto) [place] # (Auto) Seg Neutrophils % Seg Neuts % (Manual) Lymphocytes % (Manual) Monocytes % (Manual) Nucleated RBC % Seg Neutrophils # Seg Neutrophils # Man Lymphocytes # (Manual) Monocytes # (Manual) PT INR APTT D-Dimer Heparin Anti-Xa Level ABG pH POC ABG pCO2 POC ABG pO2 ABG pO2 ABG HCO3 ABG O2 Saturation ABG Base Excess ABG Hemoglobin ABG Oxyhemoglobin ABG Sodium ABG Potassium ABG Glucose Oxyhemoglobin Sodium Potassium Chloride Carbon Dioxide BUN Creatinine Glucose POC Glucose Lactic Acid 2.10 H* Calcium Phosphorus Magnesium Ferritin 877.5 H Lactate Dehydrogenase C-Reactive Protein NT-Pro-B Natriuret Pep Total Protein Albumin Triglycerides Arterial Blood Glucose Urine pH Ur Specific [place] 1.041 H Coronavirus (PCR) 03/09/21 03/09/21 03/09/21 07:46 08:00 13:01 WBC RBC Hgb Hct MCV MCHC RDW Plt Count Lymph % (Auto) [place] % (Auto) Lymph # (Auto) [place] # (Auto) Seg Neutrophils % Seg Neuts % (Manual) Lymphocytes % (Manual) Monocytes % (Manual) Nucleated RBC % Seg Neutrophils # Seg Neutrophils # Man Lymphocytes # (Manual) Monocytes # (Manual) PT INR APTT D-Dimer Heparin Anti-Xa Level ABG pH POC ABG pCO2 POC ABG pO2 ABG pO2 ABG HCO3 ABG O2 Saturation ABG Base Excess ABG Hemoglobin ABG Oxyhemoglobin ABG Sodium ABG Potassium ABG Glucose Oxyhemoglobin Sodium Potassium Chloride Carbon Dioxide BUN Creatinine Glucose POC Glucose 191 H 182 H Lactic Acid Calcium Phosphorus Magnesium Ferritin Lactate Dehydrogenase C-Reactive Protein NT-Pro-B Natriuret Pep Total Protein Albumin Triglycerides Arterial Blood Glucose Urine pH Ur Specific [place] Coronavirus (PCR) Positive A 03/09/21 03/09/21 03/09/21 15:19 17:48 18:10 WBC RBC Hgb Hct MCV MCHC RDW Plt Count Lymph % (Auto) [place] % (Auto) Lymph # (Auto) [place] # (Auto) Seg Neutrophils % Seg Neuts % (Manual) Lymphocytes % (Manual) Monocytes % (Manual) Nucleated RBC % Seg Neutrophils # Seg Neutrophils # Man Lymphocytes # (Manual) Monocytes # (Manual) PT INR APTT D-Dimer Heparin Anti-Xa Level ABG pH POC ABG pCO2 POC ABG pO2 ABG pO2 47.3 L ABG HCO3 26.3 H ABG O2 Saturation 83.7 L ABG Base Excess ABG Hemoglobin ABG Oxyhemoglobin ABG Sodium ABG Potassium ABG Glucose Oxyhemoglobin 82.1 L Sodium Potassium Chloride Carbon Dioxide BUN 29 H Creatinine Glucose 214 H POC Glucose 194 H Lactic Acid Calcium Phosphorus Magnesium Ferritin Lactate Dehydrogenase C-Reactive Protein NT-Pro-B Natriuret Pep Total Protein Albumin 3.4 L Triglycerides Arterial Blood Glucose Urine pH Ur Specific [place] Coronavirus (PCR) 03/09/21 03/10/21 03/10/21 20:40 04:29 04:29 WBC 20.6 H RBC 5.07 H Hgb Hct 46.2 H MCV MCHC RDW Plt Count Lymph % (Auto) [place] % (Auto) Lymph # (Auto) [place] # (Auto) Seg Neutrophils % Seg Neuts % (Manual) 94.0 H Lymphocytes % (Manual) 1.0 L Monocytes % (Manual) Nucleated RBC % 3.0 H Seg Neutrophils # Seg Neutrophils # Man 19.4 H Lymphocytes # (Manual) 0.2 L Monocytes # (Manual) 1.0 H PT INR APTT D-Dimer Heparin Anti-Xa Level ABG pH POC ABG pCO2 POC ABG pO2 ABG pO2 ABG HCO3 ABG O2 Saturation ABG Base Excess ABG Hemoglobin ABG Oxyhemoglobin ABG Sodium ABG Potassium ABG Glucose Oxyhemoglobin Sodium Potassium Chloride Carbon Dioxide BUN 29 H Creatinine Glucose 188 H POC Glucose 176 H Lactic Acid Calcium Phosphorus Magnesium Ferritin Lactate Dehydrogenase C-Reactive Protein NT-Pro-B Natriuret Pep Total Protein Albumin 3.3 L Triglycerides Arterial Blood Glucose Urine pH Ur Specific [place] Coronavirus (PCR) 03/10/21 03/10/21 03/10/21 05:22 10:27 15:25 WBC RBC Hgb Hct MCV MCHC RDW Plt Count Lymph % (Auto) [place] % (Auto) Lymph # (Auto) [place] # (Auto) Seg Neutrophils % Seg Neuts % (Manual) Lymphocytes % (Manual) Monocytes % (Manual) Nucleated RBC % Seg Neutrophils # Seg Neutrophils # Man Lymphocytes # (Manual) Monocytes # (Manual) PT INR APTT D-Dimer Heparin Anti-Xa Level ABG pH 7.488 H 7.488 H POC ABG pCO2 POC ABG pO2 ABG pO2 47.7 L 50.5 L ABG HCO3 ABG O2 Saturation 86.2 L 87.9 L ABG Base Excess ABG Hemoglobin ABG Oxyhemoglobin ABG Sodium ABG Potassium ABG Glucose Oxyhemoglobin 84.6 L 86.2 L Sodium Potassium Chloride Carbon Dioxide BUN Creatinine Glucose POC Glucose 155 H Lactic Acid Calcium Phosphorus Magnesium Ferritin Lactate Dehydrogenase C-Reactive Protein NT-Pro-B Natriuret Pep Total Protein Albumin Triglycerides Arterial Blood Glucose Urine pH Ur Specific [place] Coronavirus (PCR) 03/10/21 03/10/21 03/11/21 18:10 18:55 00:07 WBC RBC Hgb Hct MCV MCHC RDW Plt Count Lymph % (Auto) [place] % (Auto) Lymph # (Auto) [place] # (Auto) Seg Neutrophils % Seg Neuts % (Manual) Lymphocytes % (Manual) Monocytes % (Manual) Nucleated RBC % Seg Neutrophils # Seg Neutrophils # Man Lymphocytes # (Manual) Monocytes # (Manual) PT INR APTT D-Dimer Heparin Anti-Xa Level ABG pH 7.343 L POC ABG pCO2 POC ABG pO2 ABG pO2 60.4 L ABG HCO3 27.9 H ABG O2 Saturation 88.7 L ABG Base Excess ABG Hemoglobin ABG Oxyhemoglobin ABG Sodium ABG Potassium ABG Glucose Oxyhemoglobin 86.9 L Sodium Potassium Chloride Carbon Dioxide BUN Creatinine Glucose POC Glucose 187 H 139 H Lactic Acid Calcium Phosphorus Magnesium Ferritin Lactate Dehydrogenase C-Reactive Protein NT-Pro-B Natriuret Pep Total Protein Albumin Triglycerides Arterial Blood Glucose Urine pH Ur Specific [place] Coronavirus (PCR) 03/11/21 03/11/21 03/11/21 02:09 04:28 08:06 WBC RBC Hgb Hct MCV MCHC RDW Plt Count Lymph % (Auto) [place] % (Auto) Lymph # (Auto) [place] # (Auto) Seg Neutrophils % Seg Neuts % (Manual) Lymphocytes % (Manual) Monocytes % (Manual) Nucleated RBC % Seg Neutrophils # Seg Neutrophils # Man Lymphocytes # (Manual) Monocytes # (Manual) PT INR APTT D-Dimer Heparin Anti-Xa Level ABG pH 7.277 L POC ABG pCO2 55.9 H POC ABG pO2 54.4 L ABG pO2 ABG HCO3 ABG O2 Saturation ABG Base Excess ABG Hemoglobin ABG Oxyhemoglobin 83.0 L ABG Sodium ABG Potassium 4.8 H ABG Glucose 180 H Oxyhemoglobin Sodium Potassium Chloride Carbon Dioxide BUN 38 H Creatinine Glucose 249 H POC Glucose 278 H Lactic Acid Calcium Phosphorus Magnesium Ferritin Lactate Dehydrogenase C-Reactive Protein NT-Pro-B Natriuret Pep Total Protein Albumin 3.2 L Triglycerides Arterial Blood Glucose 180 H Urine pH Ur Specific [place] Coronavirus (PCR) 03/11/21 03/11/21 03/11/21 11:29 15:06 15:48 WBC RBC Hgb Hct MCV MCHC RDW Plt Count Lymph % (Auto) [place] % (Auto) Lymph # (Auto) [place] # (Auto) Seg Neutrophils % Seg Neuts % (Manual) Lymphocytes % (Manual) Monocytes % (Manual) Nucleated RBC % Seg Neutrophils # Seg Neutrophils # Man Lymphocytes # (Manual) Monocytes # (Manual) PT INR APTT D-Dimer Heparin Anti-Xa Level ABG pH 7.260 L POC ABG pCO2 POC ABG pO2 ABG pO2 53.5 L ABG HCO3 29.5 H ABG O2 Saturation 84.0 L ABG Base Excess ABG Hemoglobin ABG Oxyhemoglobin ABG Sodium ABG Potassium ABG Glucose Oxyhemoglobin 82.3 L Sodium Potassium Chloride Carbon Dioxide BUN Creatinine Glucose POC Glucose 288 H 295 H Lactic Acid Calcium Phosphorus Magnesium Ferritin Lactate Dehydrogenase C-Reactive Protein NT-Pro-B Natriuret Pep Total Protein Albumin Triglycerides Arterial Blood Glucose Urine pH Ur Specific [place] Coronavirus (PCR) 03/12/21 03/12/21 03/12/21 00:01 05:24 08:03 WBC RBC Hgb Hct MCV MCHC RDW Plt Count Lymph % (Auto) [place] % (Auto) Lymph # (Auto) [place] # (Auto) Seg Neutrophils % Seg Neuts % (Manual) Lymphocytes % (Manual) Monocytes % (Manual) Nucleated RBC % Seg Neutrophils # Seg Neutrophils # Man Lymphocytes # (Manual) Monocytes # (Manual) PT INR APTT D-Dimer Heparin Anti-Xa Level ABG pH POC ABG pCO2 POC ABG pO2 ABG pO2 ABG HCO3 ABG O2 Saturation ABG Base Excess ABG Hemoglobin ABG Oxyhemoglobin ABG Sodium ABG Potassium ABG Glucose Oxyhemoglobin Sodium 135 L Potassium Chloride Carbon Dioxide BUN 48 H Creatinine Glucose 358 H POC Glucose 304 H 310 H Lactic Acid Calcium Phosphorus Magnesium Ferritin Lactate Dehydrogenase C-Reactive Protein NT-Pro-B Natriuret Pep Total Protein 6.0 L Albumin 2.9 L Triglycerides Arterial Blood Glucose Urine pH Ur Specific [place] Coronavirus (PCR) 03/12/21 03/12/21 03/12/21 08:03 10:43 11:31 WBC 14.6 H RBC Hgb Hct MCV MCHC RDW Plt Count Lymph % (Auto) [place] % (Auto) Lymph # (Auto) [place] # (Auto) Seg Neutrophils % Seg Neuts % (Manual) Lymphocytes % (Manual) Monocytes % (Manual) Nucleated RBC % Seg Neutrophils # Seg Neutrophils # Man Lymphocytes # (Manual) Monocytes # (Manual) PT INR APTT D-Dimer Heparin Anti-Xa Level ABG pH 7.248 L POC ABG pCO2 POC ABG pO2 ABG pO2 73.7 L ABG HCO3 32.0 H ABG O2 Saturation 93.9 L ABG Base Excess ABG Hemoglobin ABG Oxyhemoglobin ABG Sodium ABG Potassium ABG Glucose Oxyhemoglobin 92.1 L Sodium Potassium Chloride Carbon Dioxide BUN Creatinine Glucose POC Glucose 359 H Lactic Acid Calcium Phosphorus Magnesium Ferritin Lactate Dehydrogenase C-Reactive Protein NT-Pro-B Natriuret Pep Total Protein Albumin Triglycerides Arterial Blood Glucose Urine pH Ur Specific [place] Coronavirus (PCR) 03/12/21 03/12/21 03/13/21 17:20 21:54 00:02 WBC RBC Hgb Hct MCV MCHC RDW Plt Count Lymph % (Auto) [place] % (Auto) Lymph # (Auto) [place] # (Auto) Seg Neutrophils % Seg Neuts % (Manual) Lymphocytes % (Manual) Monocytes % (Manual) Nucleated RBC % Seg Neutrophils # Seg Neutrophils # Man Lymphocytes # (Manual) Monocytes # (Manual) PT INR APTT D-Dimer Heparin Anti-Xa Level ABG pH 7.238 L POC ABG pCO2 71.9 H POC ABG pO2 53.6 L ABG pO2 ABG HCO3 ABG O2 Saturation ABG Base Excess ABG Hemoglobin ABG Oxyhemoglobin 84.8 L ABG Sodium 134.2 L ABG Potassium 4.9 H ABG Glucose 306 H Oxyhemoglobin Sodium Potassium Chloride Carbon Dioxide BUN Creatinine Glucose POC Glucose 374 H 308 H Lactic Acid Calcium Phosphorus Magnesium Ferritin Lactate Dehydrogenase C-Reactive Protein NT-Pro-B Natriuret Pep Total Protein Albumin Triglycerides Arterial Blood Glucose 306 H Urine pH Ur Specific [place] Coronavirus (PCR) 03/13/21 03/13/21 03/13/21 05:22 05:44 05:44 WBC 13.9 H RBC Hgb Hct MCV MCHC RDW Plt Count Lymph % (Auto) [place] % (Auto) Lymph # (Auto) [place] # (Auto) Seg Neutrophils % Seg Neuts % (Manual) Lymphocytes % (Manual) Monocytes % (Manual) Nucleated RBC % Seg Neutrophils # Seg Neutrophils # Man Lymphocytes # (Manual) Monocytes # (Manual) PT INR APTT D-Dimer 3567.97 H Heparin Anti-Xa Level ABG pH POC ABG pCO2 POC ABG pO2 ABG pO2 ABG HCO3 ABG O2 Saturation ABG Base Excess ABG Hemoglobin ABG Oxyhemoglobin ABG Sodium ABG Potassium ABG Glucose Oxyhemoglobin Sodium Potassium Chloride Carbon Dioxide BUN Creatinine Glucose POC Glucose 316 H Lactic Acid Calcium Phosphorus Magnesium Ferritin Lactate Dehydrogenase C-Reactive Protein NT-Pro-B Natriuret Pep Total Protein Albumin Triglycerides Arterial Blood Glucose Urine pH Ur Specific [place] Coronavirus (PCR) 03/13/21 03/13/21 03/13/21 05:44 05:44 11:15 WBC RBC Hgb Hct MCV MCHC RDW Plt Count Lymph % (Auto) [place] % (Auto) Lymph # (Auto) [place] # (Auto) Seg Neutrophils % Seg Neuts % (Manual) Lymphocytes % (Manual) Monocytes % (Manual) Nucleated RBC % Seg Neutrophils # Seg Neutrophils # Man Lymphocytes # (Manual) Monocytes # (Manual) PT INR APTT D-Dimer Heparin Anti-Xa Level ABG pH 7.310 L POC ABG pCO2 POC ABG pO2 ABG pO2 52.3 L ABG HCO3 34.1 H ABG O2 Saturation 86.8 L ABG Base Excess 5.5 H ABG Hemoglobin 13.8 L ABG Oxyhemoglobin ABG Sodium ABG Potassium ABG Glucose Oxyhemoglobin 85.1 L Sodium Potassium Chloride Carbon Dioxide BUN Creatinine Glucose POC Glucose Lactic Acid Calcium Phosphorus Magnesium Ferritin 858.7 H Lactate Dehydrogenase 348 H C-Reactive Protein 2.80 H NT-Pro-B Natriuret Pep Total Protein Albumin Triglycerides Arterial Blood Glucose Urine pH Ur Specific [place] Coronavirus (PCR) 03/13/21 03/13/21 03/13/21 11:21 15:47 19:23 WBC RBC Hgb Hct MCV MCHC RDW Plt Count Lymph % (Auto) [place] % (Auto) Lymph # (Auto) [place] # (Auto) Seg Neutrophils % Seg Neuts % (Manual) Lymphocytes % (Manual) Monocytes % (Manual) Nucleated RBC % Seg Neutrophils # Seg Neutrophils # Man Lymphocytes # (Manual) Monocytes # (Manual) PT INR APTT D-Dimer Heparin Anti-Xa Level ABG pH POC ABG pCO2 POC ABG pO2 ABG pO2 ABG HCO3 ABG O2 Saturation ABG Base Excess ABG Hemoglobin ABG Oxyhemoglobin ABG Sodium ABG Potassium ABG Glucose Oxyhemoglobin Sodium 136 L Potassium 5.9 H Chloride Carbon Dioxide BUN 50 H Creatinine Glucose 397 H POC Glucose 322 H 317 H Lactic Acid Calcium Phosphorus Magnesium Ferritin Lactate Dehydrogenase C-Reactive Protein NT-Pro-B Natriuret Pep Total Protein Albumin Triglycerides Arterial Blood Glucose Urine pH Ur Specific [place] Coronavirus (PCR) 03/13/21 03/14/21 03/14/21 23:46 05:32 05:50 WBC 11.6 H RBC Hgb Hct MCV MCHC RDW Plt Count Lymph % (Auto) [place] % (Auto) Lymph # (Auto) [place] # (Auto) Seg Neutrophils % Seg Neuts % (Manual) Lymphocytes % (Manual) Monocytes % (Manual) Nucleated RBC % Seg Neutrophils # Seg Neutrophils # Man Lymphocytes # (Manual) Monocytes # (Manual) PT INR APTT D-Dimer Heparin Anti-Xa Level ABG pH POC ABG pCO2 POC ABG pO2 ABG pO2 ABG HCO3 ABG O2 Saturation ABG Base Excess ABG Hemoglobin ABG Oxyhemoglobin ABG Sodium ABG Potassium ABG Glucose Oxyhemoglobin Sodium Potassium Chloride Carbon Dioxide BUN Creatinine Glucose POC Glucose 332 H 316 H Lactic Acid Calcium Phosphorus Magnesium Ferritin Lactate Dehydrogenase C-Reactive Protein NT-Pro-B Natriuret Pep Total Protein Albumin Triglycerides Arterial Blood Glucose Urine pH Ur Specific [place] Coronavirus (PCR) 03/14/21 03/14/21 03/14/21 05:50 11:33 16:53 WBC RBC Hgb Hct MCV MCHC RDW Plt Count Lymph % (Auto) [place] % (Auto) Lymph # (Auto) [place] # (Auto) Seg Neutrophils % Seg Neuts % (Manual) Lymphocytes % (Manual) Monocytes % (Manual) Nucleated RBC % Seg Neutrophils # Seg Neutrophils # Man Lymphocytes # (Manual) Monocytes # (Manual) PT INR APTT D-Dimer Heparin Anti-Xa Level ABG pH POC ABG pCO2 POC ABG pO2 ABG pO2 ABG HCO3 ABG O2 Saturation ABG Base Excess ABG Hemoglobin ABG Oxyhemoglobin ABG Sodium ABG Potassium ABG Glucose Oxyhemoglobin Sodium Potassium 5.9 H Chloride Carbon Dioxide 31 H BUN 48 H Creatinine Glucose 380 H POC Glucose 315 H 235 H Lactic Acid Calcium Phosphorus Magnesium 3.40 H Ferritin Lactate Dehydrogenase C-Reactive Protein NT-Pro-B Natriuret Pep Total Protein Albumin Triglycerides Arterial Blood Glucose Urine pH Ur Specific [place] Coronavirus (PCR) 03/14/21 03/14/21 03/15/21 18:34 23:27 01:22 WBC RBC Hgb Hct 46.3 H MCV MCHC RDW Plt Count Lymph % (Auto) [place] % (Auto) Lymph # (Auto) [place] # (Auto) Seg Neutrophils % Seg Neuts % (Manual) Lymphocytes % (Manual) Monocytes % (Manual) Nucleated RBC % Seg Neutrophils # Seg Neutrophils # Man Lymphocytes # (Manual) Monocytes # (Manual) PT INR APTT D-Dimer Heparin Anti-Xa Level ABG pH POC ABG pCO2 POC ABG pO2 ABG pO2 ABG HCO3 ABG O2 Saturation ABG Base Excess ABG Hemoglobin ABG Oxyhemoglobin ABG Sodium ABG Potassium ABG Glucose Oxyhemoglobin Sodium 146 H Potassium Chloride Carbon Dioxide 34 H BUN 49 H Creatinine Glucose 285 H POC Glucose 203 H Lactic Acid Calcium Phosphorus Magnesium Ferritin Lactate Dehydrogenase C-Reactive Protein NT-Pro-B Natriuret Pep Total Protein Albumin Triglycerides Arterial Blood Glucose Urine pH Ur Specific [place] Coronavirus (PCR) 03/15/21 03/15/21 03/15/21 04:00 06:06 06:06 WBC RBC Hgb Hct MCV MCHC RDW Plt Count Lymph % (Auto) [place] % (Auto) Lymph # (Auto) [place] # (Auto) Seg Neutrophils % Seg Neuts % (Manual) Lymphocytes % (Manual) Monocytes % (Manual) Nucleated RBC % Seg Neutrophils # Seg Neutrophils # Man Lymphocytes # (Manual) Monocytes # (Manual) PT INR APTT D-Dimer 1781.79 H Heparin Anti-Xa Level ABG pH POC ABG pCO2 POC ABG pO2 ABG pO2 ABG HCO3 ABG O2 Saturation ABG Base Excess ABG Hemoglobin ABG Oxyhemoglobin ABG Sodium ABG Potassium ABG Glucose Oxyhemoglobin Sodium 148 H Potassium 5.7 H D Chloride 108.0 H Carbon Dioxide 31 H BUN 46 H Creatinine Glucose 139 H POC Glucose Lactic Acid Calcium Phosphorus 4.80 H D Magnesium 3.00 H Ferritin 976.4 H Lactate Dehydrogenase 630 H C-Reactive Protein NT-Pro-B Natriuret Pep Total Protein Albumin Triglycerides Arterial Blood Glucose Urine pH Ur Specific [place] Coronavirus (PCR) 03/15/21 03/15/21 03/15/21 11:56 14:05 17:09 WBC RBC Hgb Hct MCV MCHC RDW Plt Count Lymph % (Auto) [place] % (Auto) Lymph # (Auto) [place] # (Auto) Seg Neutrophils % Seg Neuts % (Manual) Lymphocytes % (Manual) Monocytes % (Manual) Nucleated RBC % Seg Neutrophils # Seg Neutrophils # Man Lymphocytes # (Manual) Monocytes # (Manual) PT INR APTT D-Dimer Heparin Anti-Xa Level ABG pH POC ABG pCO2 POC ABG pO2 ABG pO2 52.1 L ABG HCO3 36.6 H ABG O2 Saturation 87.6 L ABG Base Excess 9.5 H ABG Hemoglobin ABG Oxyhemoglobin ABG Sodium ABG Potassium ABG Glucose Oxyhemoglobin 85.7 L Sodium Potassium Chloride Carbon Dioxide BUN Creatinine Glucose POC Glucose 219 H 263 H Lactic Acid Calcium Phosphorus Magnesium Ferritin Lactate Dehydrogenase C-Reactive Protein NT-Pro-B Natriuret Pep Total Protein Albumin Triglycerides Arterial Blood Glucose Urine pH Ur Specific [place] Coronavirus (PCR) 03/16/21 03/16/21 03/16/21 00:32 04:11 04:11 WBC 11.9 H RBC Hgb Hct MCV MCHC 30 L RDW Plt Count Lymph % (Auto) [place] % (Auto) Lymph # (Auto) [place] # (Auto) Seg Neutrophils % Seg Neuts % (Manual) Lymphocytes % (Manual) Monocytes % (Manual) Nucleated RBC % Seg Neutrophils # Seg Neutrophils # Man Lymphocytes # (Manual) Monocytes # (Manual) PT INR APTT D-Dimer Heparin Anti-Xa Level ABG pH POC ABG pCO2 POC ABG pO2 ABG pO2 ABG HCO3 ABG O2 Saturation ABG Base Excess ABG Hemoglobin ABG Oxyhemoglobin ABG Sodium ABG Potassium ABG Glucose Oxyhemoglobin Sodium 151 H Potassium Chloride Carbon Dioxide 35 H BUN 48 H Creatinine Glucose 152 H POC Glucose 165 H Lactic Acid Calcium Phosphorus Magnesium Ferritin Lactate Dehydrogenase C-Reactive Protein NT-Pro-B Natriuret Pep Total Protein Albumin Triglycerides Arterial Blood Glucose Urine pH Ur Specific [place] Coronavirus (PCR) 03/16/21 03/16/21 03/16/21 04:11 05:26 11:35 WBC RBC Hgb Hct MCV MCHC RDW Plt Count Lymph % (Auto) [place] % (Auto) Lymph # (Auto) [place] # (Auto) Seg Neutrophils % Seg Neuts % (Manual) Lymphocytes % (Manual) Monocytes % (Manual) Nucleated RBC % Seg Neutrophils # Seg Neutrophils # Man Lymphocytes # (Manual) Monocytes # (Manual) PT INR APTT D-Dimer Heparin Anti-Xa Level ABG pH POC ABG pCO2 POC ABG pO2 ABG pO2 ABG HCO3 ABG O2 Saturation ABG Base Excess ABG Hemoglobin ABG Oxyhemoglobin ABG Sodium ABG Potassium ABG Glucose Oxyhemoglobin Sodium Potassium Chloride Carbon Dioxide BUN Creatinine Glucose POC Glucose 162 H 187 H Lactic Acid Calcium Phosphorus Magnesium Ferritin Lactate Dehydrogenase C-Reactive Protein NT-Pro-B Natriuret Pep Total Protein Albumin Triglycerides 267 H Arterial Blood Glucose Urine pH Ur Specific [place] Coronavirus (PCR) 03/16/21 03/16/21 03/16/21 17:29 22:25 23:22 WBC RBC Hgb Hct MCV MCHC RDW Plt Count Lymph % (Auto) [place] % (Auto) Lymph # (Auto) [place] # (Auto) Seg Neutrophils % Seg Neuts % (Manual) Lymphocytes % (Manual) Monocytes % (Manual) Nucleated RBC % Seg Neutrophils # Seg Neutrophils # Man Lymphocytes # (Manual) Monocytes # (Manual) PT INR APTT D-Dimer Heparin Anti-Xa Level ABG pH POC ABG pCO2 POC ABG pO2 ABG pO2 ABG HCO3 ABG O2 Saturation ABG Base Excess ABG Hemoglobin ABG Oxyhemoglobin ABG Sodium ABG Potassium ABG Glucose Oxyhemoglobin Sodium Potassium Chloride Carbon Dioxide BUN Creatinine Glucose POC Glucose 237 H 165 H 189 H Lactic Acid Calcium Phosphorus Magnesium Ferritin Lactate Dehydrogenase C-Reactive Protein NT-Pro-B Natriuret Pep Total Protein Albumin Triglycerides Arterial Blood Glucose Urine pH Ur Specific [place] Coronavirus (PCR) 03/17/21 03/17/21 03/17/21 04:40 04:40 04:40 WBC 14.1 H RBC Hgb Hct MCV MCHC RDW 15.3 H Plt Count Lymph % (Auto) 12.6 L [place] % (Auto) 11.3 H Lymph # (Auto) [place] # (Auto) 1.6 H Seg Neutrophils % 74.9 H Seg Neuts % (Manual) Lymphocytes % (Manual) Monocytes % (Manual) Nucleated RBC % Seg Neutrophils # 10.5 H Seg Neutrophils # Man Lymphocytes # (Manual) Monocytes # (Manual) PT INR APTT D-Dimer 1359.12 H Heparin Anti-Xa Level ABG pH POC ABG pCO2 POC ABG pO2 ABG pO2 ABG HCO3 ABG O2 Saturation ABG Base Excess ABG Hemoglobin ABG Oxyhemoglobin ABG Sodium ABG Potassium ABG Glucose Oxyhemoglobin Sodium 148 H Potassium Chloride 107.5 H Carbon Dioxide 33 H BUN 42 H Creatinine Glucose 183 H POC Glucose Lactic Acid Calcium Phosphorus Magnesium 2.70 H Ferritin Lactate Dehydrogenase C-Reactive Protein NT-Pro-B Natriuret Pep Total Protein Albumin Triglycerides Arterial Blood Glucose Urine pH Ur Specific [place] Coronavirus (PCR) 03/17/21 03/17/21 03/17/21 05:53 11:05 11:51 WBC RBC Hgb Hct MCV MCHC RDW Plt Count Lymph % (Auto) [place] % (Auto) Lymph # (Auto) [place] # (Auto) Seg Neutrophils % Seg Neuts % (Manual) Lymphocytes % (Manual) Monocytes % (Manual) Nucleated RBC % Seg Neutrophils # Seg Neutrophils # Man Lymphocytes # (Manual) Monocytes # (Manual) PT INR APTT D-Dimer Heparin Anti-Xa Level ABG pH POC ABG pCO2 POC ABG pO2 ABG pO2 ABG HCO3 35.7 H ABG O2 Saturation ABG Base Excess 8.7 H ABG Hemoglobin ABG Oxyhemoglobin ABG Sodium ABG Potassium ABG Glucose Oxyhemoglobin 94.2 L Sodium Potassium Chloride Carbon Dioxide BUN Creatinine Glucose POC Glucose 176 H 197 H Lactic Acid Calcium Phosphorus Magnesium Ferritin Lactate Dehydrogenase C-Reactive Protein NT-Pro-B Natriuret Pep Total Protein Albumin Triglycerides Arterial Blood Glucose Urine pH Ur Specific [place] Coronavirus (PCR) 03/17/21 03/17/21 03/17/21 16:54 21:10 23:33 WBC RBC Hgb Hct MCV MCHC RDW Plt Count Lymph % (Auto) [place] % (Auto) Lymph # (Auto) [place] # (Auto) Seg Neutrophils % Seg Neuts % (Manual) Lymphocytes % (Manual) Monocytes % (Manual) Nucleated RBC % Seg Neutrophils # Seg Neutrophils # Man Lymphocytes # (Manual) Monocytes # (Manual) PT INR APTT D-Dimer Heparin Anti-Xa Level ABG pH POC ABG pCO2 POC ABG pO2 ABG pO2 ABG HCO3 ABG O2 Saturation ABG Base Excess ABG Hemoglobin ABG Oxyhemoglobin ABG Sodium ABG Potassium ABG Glucose Oxyhemoglobin Sodium Potassium Chloride Carbon Dioxide BUN Creatinine Glucose POC Glucose 135 H 160 H 138 H Lactic Acid Calcium Phosphorus Magnesium Ferritin Lactate Dehydrogenase C-Reactive Protein NT-Pro-B Natriuret Pep Total Protein Albumin Triglycerides Arterial Blood Glucose Urine pH Ur Specific [place] Coronavirus (PCR) 03/18/21 03/18/21 03/18/21 04:18 04:50 05:43 WBC RBC Hgb Hct MCV MCHC RDW Plt Count Lymph % (Auto) [place] % (Auto) Lymph # (Auto) [place] # (Auto) Seg Neutrophils % Seg Neuts % (Manual) Lymphocytes % (Manual) Monocytes % (Manual) Nucleated RBC % Seg Neutrophils # Seg Neutrophils # Man Lymphocytes # (Manual) Monocytes # (Manual) PT INR APTT D-Dimer Heparin Anti-Xa Level ABG pH POC ABG pCO2 POC ABG pO2 ABG pO2 59.8 L ABG HCO3 36.5 H ABG O2 Saturation 90.7 L ABG Base Excess 9.4 H ABG Hemoglobin 12.0 L ABG Oxyhemoglobin ABG Sodium ABG Potassium ABG Glucose Oxyhemoglobin 88.9 L Sodium Potassium Chloride 107.2 H Carbon Dioxide 34 H BUN 38 H Creatinine 0.7 L Glucose 136 H POC Glucose 128 H Lactic Acid Calcium Phosphorus Magnesium Ferritin Lactate Dehydrogenase C-Reactive Protein NT-Pro-B Natriuret Pep Total Protein Albumin Triglycerides Arterial Blood Glucose Urine pH Ur Specific [place] Coronavirus (PCR) 03/18/21 03/18/21 03/18/21 11:20 17:35 23:35 WBC RBC Hgb Hct MCV MCHC RDW Plt Count Lymph % (Auto) [place] % (Auto) Lymph # (Auto) [place] # (Auto) Seg Neutrophils % Seg Neuts % (Manual) Lymphocytes % (Manual) Monocytes % (Manual) Nucleated RBC % Seg Neutrophils # Seg Neutrophils # Man Lymphocytes # (Manual) Monocytes # (Manual) PT INR APTT D-Dimer Heparin Anti-Xa Level ABG pH POC ABG pCO2 POC ABG pO2 ABG pO2 70.7 L ABG HCO3 33.6 H ABG O2 Saturation ABG Base Excess 8.0 H ABG Hemoglobin ABG Oxyhemoglobin ABG Sodium ABG Potassium ABG Glucose Oxyhemoglobin 93.7 L Sodium Potassium Chloride Carbon Dioxide BUN Creatinine Glucose POC Glucose 189 H 144 H Lactic Acid Calcium Phosphorus Magnesium Ferritin Lactate Dehydrogenase C-Reactive Protein NT-Pro-B Natriuret Pep Total Protein Albumin Triglycerides Arterial Blood Glucose Urine pH Ur Specific [place] Coronavirus (PCR) 03/19/21 03/19/21 03/19/21 02:35 04:20 04:20 WBC 14.0 H RBC Hgb Hct MCV MCHC RDW Plt Count Lymph % (Auto) [place] % (Auto) Lymph # (Auto) [place] # (Auto) Seg Neutrophils % Seg Neuts % (Manual) Lymphocytes % (Manual) Monocytes % (Manual) Nucleated RBC % Seg Neutrophils # Seg Neutrophils # Man Lymphocytes # (Manual) Monocytes # (Manual) PT INR APTT D-Dimer Heparin Anti-Xa Level ABG pH POC ABG pCO2 POC ABG pO2 ABG pO2 ABG HCO3 32.0 H ABG O2 Saturation ABG Base Excess 5.2 H ABG Hemoglobin 13.6 L ABG Oxyhemoglobin ABG Sodium ABG Potassium ABG Glucose Oxyhemoglobin 94.6 L Sodium 146 H Potassium Chloride 109.3 H Carbon Dioxide BUN 36 H Creatinine Glucose 203 H POC Glucose Lactic Acid Calcium Phosphorus Magnesium Ferritin Lactate Dehydrogenase C-Reactive Protein NT-Pro-B Natriuret Pep Total Protein Albumin Triglycerides 254 H Arterial Blood Glucose Urine pH Ur Specific [place] Coronavirus (PCR) 03/19/21 03/19/21 03/19/21 05:45 11:36 23:51 WBC RBC Hgb Hct MCV MCHC RDW Plt Count Lymph % (Auto) [place] % (Auto) Lymph # (Auto) [place] # (Auto) Seg Neutrophils % Seg Neuts % (Manual) Lymphocytes % (Manual) Monocytes % (Manual) Nucleated RBC % Seg Neutrophils # Seg Neutrophils # Man Lymphocytes # (Manual) Monocytes # (Manual) PT INR APTT D-Dimer Heparin Anti-Xa Level ABG pH POC ABG pCO2 POC ABG pO2 ABG pO2 ABG HCO3 ABG O2 Saturation ABG Base Excess ABG Hemoglobin ABG Oxyhemoglobin ABG Sodium ABG Potassium ABG Glucose Oxyhemoglobin Sodium Potassium Chloride Carbon Dioxide BUN Creatinine Glucose POC Glucose 164 H 172 H 140 H Lactic Acid Calcium Phosphorus Magnesium Ferritin Lactate Dehydrogenase C-Reactive Protein NT-Pro-B Natriuret Pep Total Protein Albumin Triglycerides Arterial Blood Glucose Urine pH Ur Specific [place] Coronavirus (PCR) 03/20/21 03/20/21 03/20/21 03:29 04:45 04:45 WBC RBC Hgb Hct MCV 95 H MCHC RDW 15.7 H Plt Count Lymph % (Auto) [place] % (Auto) Lymph # (Auto) [place] # (Auto) Seg Neutrophils % Seg Neuts % (Manual) Lymphocytes % (Manual) Monocytes % (Manual) Nucleated RBC % Seg Neutrophils # Seg Neutrophils # Man Lymphocytes # (Manual) Monocytes # (Manual) PT INR APTT D-Dimer Heparin Anti-Xa Level ABG pH 7.349 L POC ABG pCO2 POC ABG pO2 ABG pO2 ABG HCO3 33.7 H ABG O2 Saturation ABG Base Excess 6.4 H ABG Hemoglobin 11.8 L ABG Oxyhemoglobin ABG Sodium ABG Potassium ABG Glucose Oxyhemoglobin 93.9 L Sodium 146 H Potassium 5.5 H Chloride 111.1 H Carbon Dioxide BUN 34 H Creatinine 0.7 L Glucose 145 H POC Glucose Lactic Acid Calcium Phosphorus Magnesium 2.50 H Ferritin Lactate Dehydrogenase C-Reactive Protein NT-Pro-B Natriuret Pep Total Protein Albumin Triglycerides Arterial Blood Glucose Urine pH Ur Specific [place] Coronavirus (PCR) 03/20/21 03/20/21 03/20/21 05:41 09:08 11:54 WBC RBC Hgb Hct MCV MCHC RDW Plt Count Lymph % (Auto) [place] % (Auto) Lymph # (Auto) [place] # (Auto) Seg Neutrophils % Seg Neuts % (Manual) Lymphocytes % (Manual) Monocytes % (Manual) Nucleated RBC % Seg Neutrophils # Seg Neutrophils # Man Lymphocytes # (Manual) Monocytes # (Manual) PT INR APTT D-Dimer Heparin Anti-Xa Level ABG pH POC ABG pCO2 POC ABG pO2 ABG pO2 ABG HCO3 ABG O2 Saturation ABG Base Excess ABG Hemoglobin ABG Oxyhemoglobin ABG Sodium ABG Potassium ABG Glucose Oxyhemoglobin Sodium Potassium Chloride Carbon Dioxide BUN Creatinine Glucose POC Glucose 108 H 132 H 162 H Lactic Acid Calcium Phosphorus Magnesium Ferritin Lactate Dehydrogenase C-Reactive Protein NT-Pro-B Natriuret Pep Total Protein Albumin Triglycerides Arterial Blood Glucose Urine pH Ur Specific [place] Coronavirus (PCR) 03/20/21 03/21/21 03/21/21 17:28 00:31 04:44 WBC RBC Hgb Hct MCV MCHC RDW Plt Count Lymph % (Auto) [place] % (Auto) Lymph # (Auto) [place] # (Auto) Seg Neutrophils % Seg Neuts % (Manual) Lymphocytes % (Manual) Monocytes % (Manual) Nucleated RBC % Seg Neutrophils # Seg Neutrophils # Man Lymphocytes # (Manual) Monocytes # (Manual) PT INR APTT D-Dimer Heparin Anti-Xa Level ABG pH POC ABG pCO2 POC ABG pO2 ABG pO2 ABG HCO3 ABG O2 Saturation ABG Base Excess ABG Hemoglobin ABG Oxyhemoglobin ABG Sodium ABG Potassium ABG Glucose Oxyhemoglobin Sodium Potassium Chloride 108.3 H Carbon Dioxide BUN 30 H Creatinine 0.7 L Glucose POC Glucose 160 H 122 H Lactic Acid Calcium Phosphorus Magnesium Ferritin Lactate Dehydrogenase C-Reactive Protein NT-Pro-B Natriuret Pep Total Protein Albumin Triglycerides Arterial Blood Glucose Urine pH Ur Specific [place] Coronavirus (PCR) 03/21/21 03/21/21 03/21/21 09:18 10:09 13:20 WBC RBC Hgb Hct MCV MCHC RDW Plt Count Lymph % (Auto) [place] % (Auto) Lymph # (Auto) [place] # (Auto) Seg Neutrophils % Seg Neuts % (Manual) Lymphocytes % (Manual) Monocytes % (Manual) Nucleated RBC % Seg Neutrophils # Seg Neutrophils # Man Lymphocytes # (Manual) Monocytes # (Manual) PT INR APTT D-Dimer Heparin Anti-Xa Level ABG pH POC ABG pCO2 POC ABG pO2 ABG pO2 60.7 L ABG HCO3 30.6 H ABG O2 Saturation 93.6 L ABG Base Excess 5.3 H ABG Hemoglobin ABG Oxyhemoglobin ABG Sodium ABG Potassium ABG Glucose Oxyhemoglobin 91.7 L Sodium Potassium Chloride Carbon Dioxide BUN Creatinine Glucose POC Glucose 169 H 122 H Lactic Acid Calcium Phosphorus Magnesium Ferritin Lactate Dehydrogenase C-Reactive Protein NT-Pro-B Natriuret Pep Total Protein Albumin Triglycerides Arterial Blood Glucose Urine pH Ur Specific [place] Coronavirus (PCR) 03/21/21 03/21/21 03/21/21 17:25 22:41 23:52 WBC RBC Hgb Hct MCV MCHC RDW Plt Count Lymph % (Auto) [place] % (Auto) Lymph # (Auto) [place] # (Auto) Seg Neutrophils % Seg Neuts % (Manual) Lymphocytes % (Manual) Monocytes % (Manual) Nucleated RBC % Seg Neutrophils # Seg Neutrophils # Man Lymphocytes # (Manual) Monocytes # (Manual) PT INR APTT D-Dimer Heparin Anti-Xa Level ABG pH POC ABG pCO2 POC ABG pO2 ABG pO2 ABG HCO3 ABG O2 Saturation ABG Base Excess ABG Hemoglobin ABG Oxyhemoglobin ABG Sodium ABG Potassium ABG Glucose Oxyhemoglobin Sodium Potassium Chloride Carbon Dioxide BUN Creatinine Glucose POC Glucose 121 H 139 H 140 H Lactic Acid Calcium Phosphorus Magnesium Ferritin Lactate Dehydrogenase C-Reactive Protein NT-Pro-B Natriuret Pep Total Protein Albumin Triglycerides Arterial Blood Glucose Urine pH Ur Specific [place] Coronavirus (PCR) 03/22/21 03/22/21 03/22/21 05:58 07:26 07:26 WBC RBC Hgb Hct MCV MCHC 31 L RDW 16.1 H Plt Count Lymph % (Auto) [place] % (Auto) Lymph # (Auto) [place] # (Auto) Seg Neutrophils % Seg Neuts % (Manual) Lymphocytes % (Manual) Monocytes % (Manual) Nucleated RBC % Seg Neutrophils # Seg Neutrophils # Man Lymphocytes # (Manual) Monocytes # (Manual) PT INR APTT D-Dimer Heparin Anti-Xa Level ABG pH POC ABG pCO2 POC ABG pO2 ABG pO2 ABG HCO3 ABG O2 Saturation ABG Base Excess ABG Hemoglobin ABG Oxyhemoglobin ABG Sodium ABG Potassium ABG Glucose Oxyhemoglobin Sodium Potassium Chloride 108.5 H Carbon Dioxide BUN 44 H Creatinine Glucose 120 H POC Glucose 131 H Lactic Acid Calcium Phosphorus 5.80 H Magnesium 2.80 H Ferritin Lactate Dehydrogenase C-Reactive Protein NT-Pro-B Natriuret Pep Total Protein Albumin Triglycerides 305 H Arterial Blood Glucose Urine pH Ur Specific [place] Coronavirus (PCR) 03/22/21 03/22/21 03/22/21 09:38 11:15 16:01 WBC RBC Hgb Hct MCV MCHC RDW Plt Count Lymph % (Auto) [place] % (Auto) Lymph # (Auto) [place] # (Auto) Seg Neutrophils % Seg Neuts % (Manual) Lymphocytes % (Manual) Monocytes % (Manual) Nucleated RBC % Seg Neutrophils # Seg Neutrophils # Man Lymphocytes # (Manual) Monocytes # (Manual) PT INR APTT D-Dimer Heparin Anti-Xa Level ABG pH POC ABG pCO2 POC ABG pO2 ABG pO2 70.0 L ABG HCO3 30.0 H ABG O2 Saturation 94.6 L ABG Base Excess 3.6 H ABG Hemoglobin 13.5 L ABG Oxyhemoglobin ABG Sodium ABG Potassium ABG Glucose Oxyhemoglobin 92.5 L Sodium Potassium Chloride Carbon Dioxide BUN Creatinine Glucose POC Glucose 186 H 148 H Lactic Acid Calcium Phosphorus Magnesium Ferritin Lactate Dehydrogenase C-Reactive Protein NT-Pro-B Natriuret Pep Total Protein Albumin Triglycerides Arterial Blood Glucose Urine pH Ur Specific [place] Coronavirus (PCR) 03/22/21 03/22/21 03/23/21 21:13 23:48 07:04 WBC 11.7 H RBC Hgb Hct MCV 95 H MCHC RDW 16.1 H Plt Count Lymph % (Auto) [place] % (Auto) Lymph # (Auto) [place] # (Auto) Seg Neutrophils % Seg Neuts % (Manual) Lymphocytes % (Manual) Monocytes % (Manual) Nucleated RBC % Seg Neutrophils # Seg Neutrophils # Man Lymphocytes # (Manual) Monocytes # (Manual) PT INR APTT D-Dimer Heparin Anti-Xa Level ABG pH POC ABG pCO2 POC ABG pO2 ABG pO2 ABG HCO3 ABG O2 Saturation ABG Base Excess ABG Hemoglobin ABG Oxyhemoglobin ABG Sodium ABG Potassium ABG Glucose Oxyhemoglobin Sodium Potassium Chloride Carbon Dioxide BUN Creatinine Glucose POC Glucose 121 H 114 H Lactic Acid Calcium Phosphorus Magnesium Ferritin Lactate Dehydrogenase C-Reactive Protein NT-Pro-B Natriuret Pep Total Protein Albumin Triglycerides Arterial Blood Glucose Urine pH Ur Specific [place] Coronavirus (PCR) 03/23/21 03/23/21 03/23/21 07:04 08:35 11:19 WBC RBC Hgb Hct MCV MCHC RDW Plt Count Lymph % (Auto) [place] % (Auto) Lymph # (Auto) [place] # (Auto) Seg Neutrophils % Seg Neuts % (Manual) Lymphocytes % (Manual) Monocytes % (Manual) Nucleated RBC % Seg Neutrophils # Seg Neutrophils # Man Lymphocytes # (Manual) Monocytes # (Manual) PT INR APTT D-Dimer Heparin Anti-Xa Level ABG pH 7.345 L POC ABG pCO2 POC ABG pO2 ABG pO2 167.9 H ABG HCO3 32.2 H ABG O2 Saturation ABG Base Excess 4.8 H ABG Hemoglobin 13.4 L ABG Oxyhemoglobin ABG Sodium ABG Potassium ABG Glucose Oxyhemoglobin Sodium 148 H Potassium Chloride 111.3 H Carbon Dioxide 31 H BUN 31 H Creatinine Glucose 131 H POC Glucose 165 H Lactic Acid Calcium Phosphorus Magnesium 2.50 H Ferritin Lactate Dehydrogenase C-Reactive Protein NT-Pro-B Natriuret Pep Total Protein Albumin Triglycerides Arterial Blood Glucose Urine pH Ur Specific [place] Coronavirus (PCR) 03/23/21 03/23/21 03/24/21 16:48 20:52 00:07 WBC RBC Hgb Hct MCV MCHC RDW Plt Count Lymph % (Auto) [place] % (Auto) Lymph # (Auto) [place] # (Auto) Seg Neutrophils % Seg Neuts % (Manual) Lymphocytes % (Manual) Monocytes % (Manual) Nucleated RBC % Seg Neutrophils # Seg Neutrophils # Man Lymphocytes # (Manual) Monocytes # (Manual) PT INR APTT D-Dimer Heparin Anti-Xa Level ABG pH POC ABG pCO2 POC ABG pO2 ABG pO2 ABG HCO3 ABG O2 Saturation ABG Base Excess ABG Hemoglobin ABG Oxyhemoglobin ABG Sodium ABG Potassium ABG Glucose Oxyhemoglobin Sodium Potassium Chloride Carbon Dioxide BUN Creatinine Glucose POC Glucose 160 H 127 H 147 H Lactic Acid Calcium Phosphorus Magnesium Ferritin Lactate Dehydrogenase C-Reactive Protein NT-Pro-B Natriuret Pep Total Protein Albumin Triglycerides Arterial Blood Glucose Urine pH Ur Specific [place] Coronavirus (PCR) 03/24/21 03/24/21 03/24/21 04:34 04:34 05:20 WBC 13.3 H RBC Hgb Hct MCV MCHC 31 L RDW 16.1 H Plt Count Lymph % (Auto) [place] % (Auto) Lymph # (Auto) [place] # (Auto) Seg Neutrophils % Seg Neuts % (Manual) Lymphocytes % (Manual) Monocytes % (Manual) Nucleated RBC % Seg Neutrophils # Seg Neutrophils # Man Lymphocytes # (Manual) Monocytes # (Manual) PT INR APTT D-Dimer Heparin Anti-Xa Level ABG pH POC ABG pCO2 POC ABG pO2 ABG pO2 ABG HCO3 ABG O2 Saturation ABG Base Excess ABG Hemoglobin ABG Oxyhemoglobin ABG Sodium ABG Potassium ABG Glucose Oxyhemoglobin Sodium Potassium 5.2 H Chloride Carbon Dioxide BUN 28 H Creatinine 0.7 L Glucose 152 H POC Glucose 141 H Lactic Acid Calcium Phosphorus Magnesium Ferritin Lactate Dehydrogenase C-Reactive Protein NT-Pro-B Natriuret Pep Total Protein Albumin Triglycerides Arterial Blood Glucose Urine pH Ur Specific [place] Coronavirus (PCR) 03/24/21 03/24/21 03/24/21 09:40 11:38 16:45 WBC RBC Hgb Hct MCV MCHC RDW Plt Count Lymph % (Auto) [place] % (Auto) Lymph # (Auto) [place] # (Auto) Seg Neutrophils % Seg Neuts % (Manual) Lymphocytes % (Manual) Monocytes % (Manual) Nucleated RBC % Seg Neutrophils # Seg Neutrophils # Man Lymphocytes # (Manual) Monocytes # (Manual) PT INR APTT D-Dimer Heparin Anti-Xa Level ABG pH POC ABG pCO2 POC ABG pO2 ABG pO2 ABG HCO3 ABG O2 Saturation ABG Base Excess ABG Hemoglobin ABG Oxyhemoglobin ABG Sodium ABG Potassium ABG Glucose Oxyhemoglobin Sodium Potassium Chloride Carbon Dioxide BUN Creatinine Glucose POC Glucose 126 H 136 H 118 H Lactic Acid Calcium Phosphorus Magnesium Ferritin Lactate Dehydrogenase C-Reactive Protein NT-Pro-B Natriuret Pep Total Protein Albumin Triglycerides Arterial Blood Glucose Urine pH Ur Specific [place] Coronavirus (PCR) 03/24/21 03/24/21 03/25/21 21:03 23:49 04:32 WBC RBC Hgb Hct MCV MCHC RDW 16.1 H Plt Count 121 L Lymph % (Auto) [place] % (Auto) Lymph # (Auto) [place] # (Auto) Seg Neutrophils % Seg Neuts % (Manual) Lymphocytes % (Manual) Monocytes % (Manual) Nucleated RBC % Seg Neutrophils # Seg Neutrophils # Man Lymphocytes # (Manual) Monocytes # (Manual) PT INR APTT D-Dimer Heparin Anti-Xa Level ABG pH POC ABG pCO2 POC ABG pO2 ABG pO2 ABG HCO3 ABG O2 Saturation ABG Base Excess ABG Hemoglobin ABG Oxyhemoglobin ABG Sodium ABG Potassium ABG Glucose Oxyhemoglobin Sodium Potassium Chloride Carbon Dioxide BUN Creatinine Glucose POC Glucose 116 H 125 H Lactic Acid Calcium Phosphorus Magnesium Ferritin Lactate Dehydrogenase C-Reactive Protein NT-Pro-B Natriuret Pep Total Protein Albumin Triglycerides Arterial Blood Glucose Urine pH Ur Specific [place] Coronavirus (PCR) 03/25/21 03/25/21 03/25/21 04:32 05:21 09:29 WBC RBC Hgb Hct MCV MCHC RDW Plt Count Lymph % (Auto) [place] % (Auto) Lymph # (Auto) [place] # (Auto) Seg Neutrophils % Seg Neuts % (Manual) Lymphocytes % (Manual) Monocytes % (Manual) Nucleated RBC % Seg Neutrophils # Seg Neutrophils # Man Lymphocytes # (Manual) Monocytes # (Manual) PT INR APTT D-Dimer Heparin Anti-Xa Level ABG pH POC ABG pCO2 POC ABG pO2 ABG pO2 ABG HCO3 ABG O2 Saturation ABG Base Excess ABG Hemoglobin ABG Oxyhemoglobin ABG Sodium ABG Potassium ABG Glucose Oxyhemoglobin Sodium 135 L D Potassium Chloride Carbon Dioxide BUN 25 H Creatinine 0.7 L Glucose 168 H POC Glucose 149 H 115 H Lactic Acid Calcium Phosphorus Magnesium Ferritin Lactate Dehydrogenase C-Reactive Protein NT-Pro-B Natriuret Pep Total Protein Albumin Triglycerides Arterial Blood Glucose Urine pH Ur Specific [place] Coronavirus (PCR) 03/25/21 03/25/21 03/25/21 12:26 12:35 23:53 WBC RBC Hgb Hct MCV MCHC RDW Plt Count Lymph % (Auto) [place] % (Auto) Lymph # (Auto) [place] # (Auto) Seg Neutrophils % Seg Neuts % (Manual) Lymphocytes % (Manual) Monocytes % (Manual) Nucleated RBC % Seg Neutrophils # Seg Neutrophils # Man Lymphocytes # (Manual) Monocytes # (Manual) PT INR APTT D-Dimer Heparin Anti-Xa Level ABG pH POC ABG pCO2 POC ABG pO2 ABG pO2 100.5 H ABG HCO3 33.6 H ABG O2 Saturation ABG Base Excess 6.4 H ABG Hemoglobin 12.0 L ABG Oxyhemoglobin ABG Sodium ABG Potassium ABG Glucose Oxyhemoglobin Sodium Potassium Chloride Carbon Dioxide BUN Creatinine Glucose POC Glucose 108 H 137 H Lactic Acid Calcium Phosphorus Magnesium Ferritin Lactate Dehydrogenase C-Reactive Protein NT-Pro-B Natriuret Pep Total Protein Albumin Triglycerides Arterial Blood Glucose Urine pH Ur Specific [place] Coronavirus (PCR) 03/26/21 03/26/21 03/26/21 05:14 07:09 07:09 WBC RBC Hgb Hct MCV MCHC RDW 16.5 H Plt Count 139 L Lymph % (Auto) [place] % (Auto) Lymph # (Auto) [place] # (Auto) Seg Neutrophils % Seg Neuts % (Manual) Lymphocytes % (Manual) Monocytes % (Manual) Nucleated RBC % Seg Neutrophils # Seg Neutrophils # Man Lymphocytes # (Manual) Monocytes # (Manual) PT INR APTT D-Dimer Heparin Anti-Xa Level ABG pH POC ABG pCO2 POC ABG pO2 ABG pO2 ABG HCO3 ABG O2 Saturation ABG Base Excess ABG Hemoglobin ABG Oxyhemoglobin ABG Sodium ABG Potassium ABG Glucose Oxyhemoglobin Sodium Potassium Chloride Carbon Dioxide BUN 22 H Creatinine 0.7 L Glucose 108 H POC Glucose 116 H Lactic Acid Calcium Phosphorus Magnesium Ferritin Lactate Dehydrogenase C-Reactive Protein NT-Pro-B Natriuret Pep Total Protein Albumin Triglycerides Arterial Blood Glucose Urine pH Ur Specific [place] Coronavirus (PCR) 03/26/21 03/26/21 03/26/21 09:51 11:15 16:59 WBC RBC Hgb Hct MCV MCHC RDW Plt Count Lymph % (Auto) [place] % (Auto) Lymph # (Auto) [place] # (Auto) Seg Neutrophils % Seg Neuts % (Manual) Lymphocytes % (Manual) Monocytes % (Manual) Nucleated RBC % Seg Neutrophils # Seg Neutrophils # Man Lymphocytes # (Manual) Monocytes # (Manual) PT INR APTT D-Dimer Heparin Anti-Xa Level ABG pH POC ABG pCO2 POC ABG pO2 ABG pO2 ABG HCO3 ABG O2 Saturation ABG Base Excess ABG Hemoglobin ABG Oxyhemoglobin ABG Sodium ABG Potassium ABG Glucose Oxyhemoglobin Sodium Potassium Chloride Carbon Dioxide BUN Creatinine Glucose POC Glucose 107 H 119 H 174 H Lactic Acid Calcium Phosphorus Magnesium Ferritin Lactate Dehydrogenase C-Reactive Protein NT-Pro-B Natriuret Pep Total Protein Albumin Triglycerides Arterial Blood Glucose Urine pH Ur Specific [place] Coronavirus (PCR) 03/26/21 03/27/21 03/27/21 22:18 07:08 10:28 WBC RBC Hgb Hct MCV 95 H MCHC RDW 16.2 H Plt Count 134 L Lymph % (Auto) [place] % (Auto) Lymph # (Auto) [place] # (Auto) Seg Neutrophils % Seg Neuts % (Manual) Lymphocytes % (Manual) Monocytes % (Manual) Nucleated RBC % Seg Neutrophils # Seg Neutrophils # Man Lymphocytes # (Manual) Monocytes # (Manual) PT INR APTT D-Dimer Heparin Anti-Xa Level ABG pH POC ABG pCO2 POC ABG pO2 ABG pO2 ABG HCO3 ABG O2 Saturation ABG Base Excess ABG Hemoglobin ABG Oxyhemoglobin ABG Sodium ABG Potassium ABG Glucose Oxyhemoglobin Sodium Potassium Chloride Carbon Dioxide BUN Creatinine Glucose POC Glucose 107 H 52 L Lactic Acid Calcium Phosphorus Magnesium Ferritin Lactate Dehydrogenase C-Reactive Protein NT-Pro-B Natriuret Pep Total Protein Albumin Triglycerides Arterial Blood Glucose Urine pH Ur Specific [place] Coronavirus (PCR) 03/27/21 03/27/21 03/27/21 10:28 11:45 17:39 WBC RBC Hgb Hct MCV MCHC RDW Plt Count Lymph % (Auto) [place] % (Auto) Lymph # (Auto) [place] # (Auto) Seg Neutrophils % Seg Neuts % (Manual) Lymphocytes % (Manual) Monocytes % (Manual) Nucleated RBC % Seg Neutrophils # Seg Neutrophils # Man Lymphocytes # (Manual) Monocytes # (Manual) PT INR APTT D-Dimer Heparin Anti-Xa Level ABG pH POC ABG pCO2 POC ABG pO2 ABG pO2 ABG HCO3 ABG O2 Saturation ABG Base Excess ABG Hemoglobin ABG Oxyhemoglobin ABG Sodium ABG Potassium ABG Glucose Oxyhemoglobin Sodium 136 L Potassium Chloride Carbon Dioxide BUN Creatinine 0.7 L Glucose 150 H POC Glucose 121 H 165 H Lactic Acid Calcium Phosphorus Magnesium Ferritin Lactate Dehydrogenase C-Reactive Protein NT-Pro-B Natriuret Pep Total Protein Albumin Triglycerides Arterial Blood Glucose Urine pH Ur Specific [place] Coronavirus (PCR) 03/28/21 03/28/21 03/28/21 07:14 11:42 18:22 WBC RBC Hgb Hct MCV MCHC RDW 16.4 H Plt Count Lymph % (Auto) [place] % (Auto) Lymph # (Auto) [place] # (Auto) Seg Neutrophils % Seg Neuts % (Manual) Lymphocytes % (Manual) Monocytes % (Manual) Nucleated RBC % Seg Neutrophils # Seg Neutrophils # Man Lymphocytes # (Manual) Monocytes # (Manual) PT INR APTT D-Dimer Heparin Anti-Xa Level ABG pH POC ABG pCO2 POC ABG pO2 ABG pO2 ABG HCO3 ABG O2 Saturation ABG Base Excess ABG Hemoglobin ABG Oxyhemoglobin ABG Sodium ABG Potassium ABG Glucose Oxyhemoglobin Sodium Potassium Chloride Carbon Dioxide BUN Creatinine Glucose POC Glucose 145 H 169 H Lactic Acid Calcium Phosphorus Magnesium Ferritin Lactate Dehydrogenase C-Reactive Protein NT-Pro-B Natriuret Pep Total Protein Albumin Triglycerides Arterial Blood Glucose Urine pH Ur Specific [place] Coronavirus (PCR) 03/28/21 03/29/21 03/29/21 23:39 04:50 04:50 WBC RBC Hgb 11.0 L Hct 34.9 L MCV MCHC RDW 15.9 H Plt Count Lymph % (Auto) [place] % (Auto) Lymph # (Auto) [place] # (Auto) Seg Neutrophils % Seg Neuts % (Manual) Lymphocytes % (Manual) Monocytes % (Manual) Nucleated RBC % Seg Neutrophils # Seg Neutrophils # Man Lymphocytes # (Manual) Monocytes # (Manual) PT INR APTT D-Dimer Heparin Anti-Xa Level ABG pH POC ABG pCO2 POC ABG pO2 ABG pO2 ABG HCO3 ABG O2 Saturation ABG Base Excess ABG Hemoglobin ABG Oxyhemoglobin ABG Sodium ABG Potassium ABG Glucose Oxyhemoglobin Sodium Potassium Chloride Carbon Dioxide 34 H BUN Creatinine 0.6 L Glucose 152 H POC Glucose 139 H Lactic Acid Calcium Phosphorus Magnesium Ferritin Lactate Dehydrogenase C-Reactive Protein NT-Pro-B Natriuret Pep Total Protein Albumin Triglycerides Arterial Blood Glucose Urine pH Ur Specific [place] Coronavirus (PCR) 03/29/21 03/29/21 03/29/21 05:25 11:34 18:02 WBC RBC Hgb Hct MCV MCHC RDW Plt Count Lymph % (Auto) [place] % (Auto) Lymph # (Auto) [place] # (Auto) Seg Neutrophils % Seg Neuts % (Manual) Lymphocytes % (Manual) Monocytes % (Manual) Nucleated RBC % Seg Neutrophils # Seg Neutrophils # Man Lymphocytes # (Manual) Monocytes # (Manual) PT INR APTT D-Dimer Heparin Anti-Xa Level ABG pH POC ABG pCO2 POC ABG pO2 ABG pO2 ABG HCO3 ABG O2 Saturation ABG Base Excess ABG Hemoglobin ABG Oxyhemoglobin ABG Sodium ABG Potassium ABG Glucose Oxyhemoglobin Sodium Potassium Chloride Carbon Dioxide BUN Creatinine Glucose POC Glucose 127 H 169 H 173 H Lactic Acid Calcium Phosphorus Magnesium Ferritin Lactate Dehydrogenase C-Reactive Protein NT-Pro-B Natriuret Pep Total Protein Albumin Triglycerides Arterial Blood Glucose Urine pH Ur Specific [place] Coronavirus (PCR) 03/29/21 03/30/21 03/30/21 21:42 00:01 05:36 WBC RBC Hgb Hct MCV MCHC RDW 16.7 H Plt Count Lymph % (Auto) [place] % (Auto) Lymph # (Auto) [place] # (Auto) Seg Neutrophils % Seg Neuts % (Manual) Lymphocytes % (Manual) Monocytes % (Manual) Nucleated RBC % Seg Neutrophils # Seg Neutrophils # Man Lymphocytes # (Manual) Monocytes # (Manual) PT INR APTT D-Dimer Heparin Anti-Xa Level ABG pH POC ABG pCO2 POC ABG pO2 ABG pO2 ABG HCO3 ABG O2 Saturation ABG Base Excess ABG Hemoglobin ABG Oxyhemoglobin ABG Sodium ABG Potassium ABG Glucose Oxyhemoglobin Sodium Potassium Chloride Carbon Dioxide BUN Creatinine Glucose POC Glucose 184 H 161 H Lactic Acid Calcium Phosphorus Magnesium Ferritin Lactate Dehydrogenase C-Reactive Protein NT-Pro-B Natriuret Pep Total Protein Albumin Triglycerides Arterial Blood Glucose Urine pH Ur Specific [place] Coronavirus (PCR) 03/30/21 03/30/21 03/30/21 05:36 06:03 11:32 WBC RBC Hgb Hct MCV MCHC RDW Plt Count Lymph % (Auto) [place] % (Auto) Lymph # (Auto) [place] # (Auto) Seg Neutrophils % Seg Neuts % (Manual) Lymphocytes % (Manual) Monocytes % (Manual) Nucleated RBC % Seg Neutrophils # Seg Neutrophils # Man Lymphocytes # (Manual) Monocytes # (Manual) PT INR APTT D-Dimer Heparin Anti-Xa Level ABG pH POC ABG pCO2 POC ABG pO2 ABG pO2 ABG HCO3 ABG O2 Saturation ABG Base Excess ABG Hemoglobin ABG Oxyhemoglobin ABG Sodium ABG Potassium ABG Glucose Oxyhemoglobin Sodium Potassium Chloride Carbon Dioxide BUN Creatinine 0.5 L Glucose 127 H POC Glucose 130 H 183 H Lactic Acid Calcium Phosphorus Magnesium Ferritin Lactate Dehydrogenase C-Reactive Protein NT-Pro-B Natriuret Pep Total Protein Albumin Triglycerides Arterial Blood Glucose Urine pH Ur Specific [place] Coronavirus (PCR) 03/30/21 03/30/21 03/30/21 15:00 16:23 21:07 WBC RBC Hgb Hct MCV MCHC RDW Plt Count Lymph % (Auto) [place] % (Auto) Lymph # (Auto) [place] # (Auto) Seg Neutrophils % Seg Neuts % (Manual) Lymphocytes % (Manual) Monocytes % (Manual) Nucleated RBC % Seg Neutrophils # Seg Neutrophils # Man Lymphocytes # (Manual) Monocytes # (Manual) PT INR APTT D-Dimer Heparin Anti-Xa Level ABG pH POC ABG pCO2 POC ABG pO2 ABG pO2 67.2 L ABG HCO3 34.9 H ABG O2 Saturation ABG Base Excess 9.1 H ABG Hemoglobin 11.6 L ABG Oxyhemoglobin ABG Sodium ABG Potassium ABG Glucose Oxyhemoglobin 93.0 L Sodium Potassium Chloride Carbon Dioxide BUN Creatinine Glucose POC Glucose 162 H 146 H Lactic Acid Calcium Phosphorus Magnesium Ferritin Lactate Dehydrogenase C-Reactive Protein NT-Pro-B Natriuret Pep Total Protein Albumin Triglycerides Arterial Blood Glucose Urine pH Ur Specific [place] Coronavirus (PCR) 03/30/21 03/31/21 03/31/21 23:23 05:44 11:19 WBC RBC Hgb Hct MCV MCHC RDW Plt Count Lymph % (Auto) [place] % (Auto) Lymph # (Auto) [place] # (Auto) Seg Neutrophils % Seg Neuts % (Manual) Lymphocytes % (Manual) Monocytes % (Manual) Nucleated RBC % Seg Neutrophils # Seg Neutrophils # Man Lymphocytes # (Manual) Monocytes # (Manual) PT INR APTT D-Dimer Heparin Anti-Xa Level ABG pH POC ABG pCO2 POC ABG pO2 ABG pO2 ABG HCO3 ABG O2 Saturation ABG Base Excess ABG Hemoglobin ABG Oxyhemoglobin ABG Sodium ABG Potassium ABG Glucose Oxyhemoglobin Sodium Potassium Chloride Carbon Dioxide BUN Creatinine Glucose POC Glucose 138 H 180 H 178 H Lactic Acid Calcium Phosphorus Magnesium Ferritin Lactate Dehydrogenase C-Reactive Protein NT-Pro-B Natriuret Pep Total Protein Albumin Triglycerides Arterial Blood Glucose Urine pH Ur Specific [place] Coronavirus (PCR) 03/31/21 03/31/21 03/31/21 12:50 13:30 16:06 WBC RBC Hgb 11.3 L Hct 35.1 L MCV MCHC RDW 16.5 H Plt Count Lymph % (Auto) 7.6 L [place] % (Auto) 9.5 H Lymph # (Auto) 0.6 L [place] # (Auto) Seg Neutrophils % 78.3 H Seg Neuts % (Manual) Lymphocytes % (Manual) Monocytes % (Manual) Nucleated RBC % Seg Neutrophils # Seg Neutrophils # Man Lymphocytes # (Manual) Monocytes # (Manual) PT INR APTT D-Dimer Heparin Anti-Xa Level ABG pH POC ABG pCO2 POC ABG pO2 ABG pO2 99.4 H ABG HCO3 34.9 H ABG O2 Saturation ABG Base Excess 8.4 H ABG Hemoglobin 11.8 L ABG Oxyhemoglobin ABG Sodium ABG Potassium ABG Glucose Oxyhemoglobin Sodium Potassium Chloride Carbon Dioxide BUN Creatinine Glucose POC Glucose 197 H Lactic Acid Calcium Phosphorus Magnesium Ferritin Lactate Dehydrogenase C-Reactive Protein NT-Pro-B Natriuret Pep Total Protein Albumin Triglycerides Arterial Blood Glucose Urine pH Ur Specific [place] Coronavirus (PCR) 03/31/21 04/01/21 04/01/21 20:51 05:37 07:16 WBC RBC 3.39 L Hgb 10.5 L Hct 31.6 L MCV MCHC RDW 16.1 H Plt Count Lymph % (Auto) [place] % (Auto) Lymph # (Auto) [place] # (Auto) Seg Neutrophils % Seg Neuts % (Manual) Lymphocytes % (Manual) Monocytes % (Manual) Nucleated RBC % Seg Neutrophils # Seg Neutrophils # Man Lymphocytes # (Manual) Monocytes # (Manual) PT INR APTT D-Dimer Heparin Anti-Xa Level ABG pH POC ABG pCO2 POC ABG pO2 ABG pO2 ABG HCO3 ABG O2 Saturation ABG Base Excess ABG Hemoglobin ABG Oxyhemoglobin ABG Sodium ABG Potassium ABG Glucose Oxyhemoglobin Sodium Potassium Chloride Carbon Dioxide BUN Creatinine Glucose POC Glucose 140 H 128 H Lactic Acid Calcium Phosphorus Magnesium Ferritin Lactate Dehydrogenase C-Reactive Protein NT-Pro-B Natriuret Pep Total Protein Albumin Triglycerides Arterial Blood Glucose Urine pH Ur Specific [place] Coronavirus (PCR) 04/01/21 04/01/21 04/01/21 07:16 11:52 16:56 WBC RBC Hgb Hct MCV MCHC RDW Plt Count Lymph % (Auto) [place] % (Auto) Lymph # (Auto) [place] # (Auto) Seg Neutrophils % Seg Neuts % (Manual) Lymphocytes % (Manual) Monocytes % (Manual) Nucleated RBC % Seg Neutrophils # Seg Neutrophils # Man Lymphocytes # (Manual) Monocytes # (Manual) PT INR APTT D-Dimer Heparin Anti-Xa Level ABG pH POC ABG pCO2 POC ABG pO2 ABG pO2 ABG HCO3 ABG O2 Saturation ABG Base Excess ABG Hemoglobin ABG Oxyhemoglobin ABG Sodium ABG Potassium ABG Glucose Oxyhemoglobin Sodium Potassium Chloride Carbon Dioxide BUN Creatinine 0.6 L Glucose 131 H POC Glucose 182 H 179 H Lactic Acid Calcium 8.3 L Phosphorus Magnesium Ferritin Lactate Dehydrogenase C-Reactive Protein NT-Pro-B Natriuret Pep Total Protein Albumin Triglycerides Arterial Blood Glucose Urine pH Ur Specific [place] Coronavirus (PCR) 02/05/22 02/05/22 02/06/22 21:30 23:40 04:26 WBC RBC 3.62 L Hgb 10.8 L Hct 33.9 L MCV MCHC RDW 16.0 H Plt Count Lymph % (Auto) [place] % (Auto) Lymph # (Auto) [place] # (Auto) Seg Neutrophils % Seg Neuts % (Manual) Lymphocytes % (Manual) Monocytes % (Manual) Nucleated RBC % Seg Neutrophils # Seg Neutrophils # Man Lymphocytes # (Manual) Monocytes # (Manual) PT INR APTT D-Dimer Heparin Anti-Xa Level ABG pH POC ABG pCO2 POC ABG pO2 ABG pO2 ABG HCO3 ABG O2 Saturation ABG Base Excess ABG Hemoglobin ABG Oxyhemoglobin ABG Sodium ABG Potassium ABG Glucose Oxyhemoglobin Sodium Potassium Chloride Carbon Dioxide BUN Creatinine Glucose POC Glucose 131 H 129 H Lactic Acid Calcium Phosphorus Magnesium Ferritin Lactate Dehydrogenase C-Reactive Protein NT-Pro-B Natriuret Pep Total Protein Albumin Triglycerides Arterial Blood Glucose Urine pH Ur Specific [place] Coronavirus (PCR) 04/02/21 04/02/21 04/02/21 04:26 05:54 11:35 WBC RBC Hgb Hct MCV MCHC RDW Plt Count Lymph % (Auto) [place] % (Auto) Lymph # (Auto) [place] # (Auto) Seg Neutrophils % Seg Neuts % (Manual) Lymphocytes % (Manual) Monocytes % (Manual) Nucleated RBC % Seg Neutrophils # Seg Neutrophils # Man Lymphocytes # (Manual) Monocytes # (Manual) PT INR APTT D-Dimer Heparin Anti-Xa Level ABG pH POC ABG pCO2 POC ABG pO2 ABG pO2 ABG HCO3 ABG O2 Saturation ABG Base Excess ABG Hemoglobin ABG Oxyhemoglobin ABG Sodium ABG Potassium ABG Glucose Oxyhemoglobin Sodium 136 L Potassium Chloride Carbon Dioxide BUN Creatinine 0.6 L Glucose 152 H POC Glucose 151 H 178 H Lactic Acid Calcium Phosphorus Magnesium Ferritin Lactate Dehydrogenase C-Reactive Protein NT-Pro-B Natriuret Pep Total Protein Albumin Triglycerides Arterial Blood Glucose Urine pH Ur Specific [place] Coronavirus (PCR) 04/02/21 04/02/21 04/02/21 16:11 21:09 23:38 WBC RBC Hgb Hct MCV MCHC RDW Plt Count Lymph % (Auto) [place] % (Auto) Lymph # (Auto) [place] # (Auto) Seg Neutrophils % Seg Neuts % (Manual) Lymphocytes % (Manual) Monocytes % (Manual) Nucleated RBC % Seg Neutrophils # Seg Neutrophils # Man Lymphocytes # (Manual) Monocytes # (Manual) PT INR APTT D-Dimer Heparin Anti-Xa Level ABG pH POC ABG pCO2 POC ABG pO2 ABG pO2 ABG HCO3 ABG O2 Saturation ABG Base Excess ABG Hemoglobin ABG Oxyhemoglobin ABG Sodium ABG Potassium ABG Glucose Oxyhemoglobin Sodium Potassium Chloride Carbon Dioxide BUN Creatinine Glucose POC Glucose 186 H 145 H 152 H Lactic Acid Calcium Phosphorus Magnesium Ferritin Lactate Dehydrogenase C-Reactive Protein NT-Pro-B Natriuret Pep Total Protein Albumin Triglycerides Arterial Blood Glucose Urine pH Ur Specific [place] Coronavirus (PCR) 04/03/21 04/03/21 04/03/21 04:14 04:14 05:27 WBC RBC 3.62 L Hgb 11.0 L Hct 34.0 L MCV MCHC RDW 16.3 H Plt Count Lymph % (Auto) [place] % (Auto) Lymph # (Auto) [place] # (Auto) Seg Neutrophils % Seg Neuts % (Manual) Lymphocytes % (Manual) Monocytes % (Manual) Nucleated RBC % Seg Neutrophils # Seg Neutrophils # Man Lymphocytes # (Manual) Monocytes # (Manual) PT INR APTT D-Dimer Heparin Anti-Xa Level ABG pH POC ABG pCO2 POC ABG pO2 ABG pO2 ABG HCO3 ABG O2 Saturation ABG Base Excess ABG Hemoglobin ABG Oxyhemoglobin ABG Sodium ABG Potassium ABG Glucose Oxyhemoglobin Sodium Potassium Chloride Carbon Dioxide 31 H BUN Creatinine 0.6 L Glucose 155 H POC Glucose 165 H Lactic Acid Calcium Phosphorus Magnesium Ferritin Lactate Dehydrogenase C-Reactive Protein NT-Pro-B Natriuret Pep Total Protein Albumin Triglycerides Arterial Blood Glucose Urine pH Ur Specific [place] Coronavirus (PCR) 04/03/21 04/03/21 04/03/21 11:02 16:19 19:45 WBC RBC Hgb Hct MCV MCHC RDW Plt Count Lymph % (Auto) [place] % (Auto) Lymph # (Auto) [place] # (Auto) Seg Neutrophils % Seg Neuts % (Manual) Lymphocytes % (Manual) Monocytes % (Manual) Nucleated RBC % Seg Neutrophils # Seg Neutrophils # Man Lymphocytes # (Manual) Monocytes # (Manual) PT INR APTT D-Dimer Heparin Anti-Xa Level ABG pH POC ABG pCO2 POC ABG pO2 ABG pO2 ABG HCO3 ABG O2 Saturation ABG Base Excess ABG Hemoglobin ABG Oxyhemoglobin ABG Sodium ABG Potassium ABG Glucose Oxyhemoglobin Sodium Potassium Chloride Carbon Dioxide BUN Creatinine Glucose POC Glucose 161 H 180 H 136 H Lactic Acid Calcium Phosphorus Magnesium Ferritin Lactate Dehydrogenase C-Reactive Protein NT-Pro-B Natriuret Pep Total Protein Albumin Triglycerides Arterial Blood Glucose Urine pH Ur Specific [place] Coronavirus (PCR) 04/04/21 04/04/21 04/04/21 00:21 04:33 04:33 WBC 13.1 H RBC 3.49 L Hgb 10.3 L Hct 32.7 L MCV MCHC RDW 16.1 H Plt Count Lymph % (Auto) [place] % (Auto) Lymph # (Auto) [place] # (Auto) Seg Neutrophils % Seg Neuts % (Manual) Lymphocytes % (Manual) Monocytes % (Manual) Nucleated RBC % Seg Neutrophils # Seg Neutrophils # Man Lymphocytes # (Manual) Monocytes # (Manual) PT INR APTT D-Dimer Heparin Anti-Xa Level ABG pH POC ABG pCO2 POC ABG pO2 ABG pO2 ABG HCO3 ABG O2 Saturation ABG Base Excess ABG Hemoglobin ABG Oxyhemoglobin ABG Sodium ABG Potassium ABG Glucose Oxyhemoglobin Sodium Potassium Chloride Carbon Dioxide 31 H BUN Creatinine 0.4 L Glucose 153 H POC Glucose 140 H Lactic Acid Calcium Phosphorus Magnesium Ferritin Lactate Dehydrogenase C-Reactive Protein NT-Pro-B Natriuret Pep Total Protein Albumin Triglycerides Arterial Blood Glucose Urine pH Ur Specific [place] Coronavirus (PCR) 04/04/21 04/04/21 04/04/21 05:16 11:39 17:22 WBC RBC Hgb Hct MCV MCHC RDW Plt Count Lymph % (Auto) [place] % (Auto) Lymph # (Auto) [place] # (Auto) Seg Neutrophils % Seg Neuts % (Manual) Lymphocytes % (Manual) Monocytes % (Manual) Nucleated RBC % Seg Neutrophils # Seg Neutrophils # Man Lymphocytes # (Manual) Monocytes # (Manual) PT INR APTT D-Dimer Heparin Anti-Xa Level ABG pH POC ABG pCO2 POC ABG pO2 ABG pO2 ABG HCO3 ABG O2 Saturation ABG Base Excess ABG Hemoglobin ABG Oxyhemoglobin ABG Sodium ABG Potassium ABG Glucose Oxyhemoglobin Sodium Potassium Chloride Carbon Dioxide BUN Creatinine Glucose POC Glucose 152 H 154 H 198 H Lactic Acid Calcium Phosphorus Magnesium Ferritin Lactate Dehydrogenase C-Reactive Protein NT-Pro-B Natriuret Pep Total Protein Albumin Triglycerides Arterial Blood Glucose Urine pH Ur Specific [place] Coronavirus (PCR) 0204/04/21 04/05/21 20:14 23:16 04:15 WBC RBC 3.21 L Hgb 10.0 L Hct 30.3 L MCV MCHC RDW 16.4 H Plt Count Lymph % (Auto) [place] % (Auto) Lymph # (Auto) [place] # (Auto) Seg Neutrophils % Seg Neuts % (Manual) Lymphocytes % (Manual) Monocytes % (Manual) Nucleated RBC % Seg Neutrophils # Seg Neutrophils # Man Lymphocytes # (Manual) Monocytes # (Manual) PT INR APTT D-Dimer Heparin Anti-Xa Level ABG pH POC ABG pCO2 POC ABG pO2 ABG pO2 ABG HCO3 ABG O2 Saturation ABG Base Excess ABG Hemoglobin ABG Oxyhemoglobin ABG Sodium ABG Potassium ABG Glucose Oxyhemoglobin Sodium Potassium Chloride Carbon Dioxide BUN Creatinine Glucose POC Glucose 161 H 139 H Lactic Acid Calcium Phosphorus Magnesium Ferritin Lactate Dehydrogenase C-Reactive Protein NT-Pro-B Natriuret Pep Total Protein Albumin Triglycerides Arterial Blood Glucose Urine pH Ur Specific [place] Coronavirus (PCR) 04/05/21 04/05/21 04/05/21 04:15 05:34 12:09 WBC RBC Hgb Hct MCV MCHC RDW Plt Count Lymph % (Auto) [place] % (Auto) Lymph # (Auto) [place] # (Auto) Seg Neutrophils % Seg Neuts % (Manual) Lymphocytes % (Manual) Monocytes % (Manual) Nucleated RBC % Seg Neutrophils # Seg Neutrophils # Man Lymphocytes # (Manual) Monocytes # (Manual) PT INR APTT D-Dimer Heparin Anti-Xa Level ABG pH POC ABG pCO2 POC ABG pO2 ABG pO2 ABG HCO3 ABG O2 Saturation ABG Base Excess ABG Hemoglobin ABG Oxyhemoglobin ABG Sodium ABG Potassium ABG Glucose Oxyhemoglobin Sodium Potassium Chloride 97.6 L Carbon Dioxide 32 H BUN Creatinine 0.5 L Glucose 147 H POC Glucose 145 H 173 H Lactic Acid Calcium Phosphorus Magnesium Ferritin Lactate Dehydrogenase C-Reactive Protein NT-Pro-B Natriuret Pep Total Protein Albumin Triglycerides Arterial Blood Glucose Urine pH Ur Specific [place] Coronavirus (PCR) 04/05/21 04/05/21 04/05/21 17:35 21:07 23:15 WBC RBC Hgb Hct MCV MCHC RDW Plt Count Lymph % (Auto) [place] % (Auto) Lymph # (Auto) [place] # (Auto) Seg Neutrophils % Seg Neuts % (Manual) Lymphocytes % (Manual) Monocytes % (Manual) Nucleated RBC % Seg Neutrophils # Seg Neutrophils # Man Lymphocytes # (Manual) Monocytes # (Manual) PT INR APTT D-Dimer Heparin Anti-Xa Level ABG pH POC ABG pCO2 POC ABG pO2 ABG pO2 ABG HCO3 ABG O2 Saturation ABG Base Excess ABG Hemoglobin ABG Oxyhemoglobin ABG Sodium ABG Potassium ABG Glucose Oxyhemoglobin Sodium Potassium Chloride Carbon Dioxide BUN Creatinine Glucose POC Glucose 143 H 157 H 171 H Lactic Acid Calcium Phosphorus Magnesium Ferritin Lactate Dehydrogenase C-Reactive Protein NT-Pro-B Natriuret Pep Total Protein Albumin Triglycerides Arterial Blood Glucose Urine pH Ur Specific [place] Coronavirus (PCR) 04/06/21 04/06/21 04/06/21 04:49 05:14 11:42 WBC RBC Hgb Hct MCV MCHC RDW Plt Count Lymph % (Auto) [place] % (Auto) Lymph # (Auto) [place] # (Auto) Seg Neutrophils % Seg Neuts % (Manual) Lymphocytes % (Manual) Monocytes % (Manual) Nucleated RBC % Seg Neutrophils # Seg Neutrophils # Man Lymphocytes # (Manual) Monocytes # (Manual) PT INR APTT D-Dimer Heparin Anti-Xa Level ABG pH POC ABG pCO2 57.4 H POC ABG pO2 55.1 L ABG pO2 ABG HCO3 ABG O2 Saturation ABG Base Excess ABG Hemoglobin 11.5 L ABG Oxyhemoglobin 87.5 L ABG Sodium ABG Potassium ABG Glucose Oxyhemoglobin Sodium Potassium Chloride Carbon Dioxide BUN Creatinine Glucose POC Glucose 145 H 171 H Lactic Acid Calcium Phosphorus Magnesium Ferritin Lactate Dehydrogenase C-Reactive Protein NT-Pro-B Natriuret Pep Total Protein Albumin Triglycerides Arterial Blood Glucose Urine pH Ur Specific [place] Coronavirus (PCR) 04/06/21 04/06/21 04/06/21 11:50 15:36 15:36 WBC RBC Hgb 10.4 L Hct 32.5 L MCV MCHC RDW Plt Count 444 H Lymph % (Auto) [place] % (Auto) Lymph # (Auto) [place] # (Auto) Seg Neutrophils % Seg Neuts % (Manual) Lymphocytes % (Manual) Monocytes % (Manual) Nucleated RBC % Seg Neutrophils # Seg Neutrophils # Man Lymphocytes # (Manual) Monocytes # (Manual) PT INR APTT 37.1 H D-Dimer Heparin Anti-Xa Level ABG pH 7.341 L POC ABG pCO2 POC ABG pO2 ABG pO2 108.9 H ABG HCO3 38.9 H ABG O2 Saturation ABG Base Excess 10.6 H ABG Hemoglobin 11.5 L ABG Oxyhemoglobin ABG Sodium ABG Potassium ABG Glucose Oxyhemoglobin Sodium Potassium Chloride Carbon Dioxide BUN Creatinine Glucose POC Glucose Lactic Acid Calcium Phosphorus Magnesium Ferritin Lactate Dehydrogenase C-Reactive Protein NT-Pro-B Natriuret Pep Total Protein Albumin Triglycerides Arterial Blood Glucose Urine pH Ur Specific [place] Coronavirus (PCR) 04/06/21 04/07/21 04/07/21 17:57 00:30 00:32 WBC RBC Hgb Hct MCV MCHC RDW Plt Count Lymph % (Auto) [place] % (Auto) Lymph # (Auto) [place] # (Auto) Seg Neutrophils % Seg Neuts % (Manual) Lymphocytes % (Manual) Monocytes % (Manual) Nucleated RBC % Seg Neutrophils # Seg Neutrophils # Man Lymphocytes # (Manual) Monocytes # (Manual) PT INR APTT D-Dimer Heparin Anti-Xa Level < 0.10 L ABG pH POC ABG pCO2 POC ABG pO2 ABG pO2 ABG HCO3 ABG O2 Saturation ABG Base Excess ABG Hemoglobin ABG Oxyhemoglobin ABG Sodium ABG Potassium ABG Glucose Oxyhemoglobin Sodium Potassium Chloride Carbon Dioxide BUN Creatinine Glucose POC Glucose 151 H 149 H Lactic Acid Calcium Phosphorus Magnesium Ferritin Lactate Dehydrogenase C-Reactive Protein NT-Pro-B Natriuret Pep Total Protein Albumin Triglycerides Arterial Blood Glucose Urine pH Ur Specific [place] Coronavirus (PCR) 04/07/21 04/07/21 04/07/21 05:34 06:08 06:08 WBC RBC 3.20 L Hgb 9.6 L Hct 29.8 L MCV MCHC RDW 16.0 H Plt Count 455 H Lymph % (Auto) [place] % (Auto) Lymph # (Auto) [place] # (Auto) Seg Neutrophils % Seg Neuts % (Manual) Lymphocytes % (Manual) Monocytes % (Manual) Nucleated RBC % Seg Neutrophils # Seg Neutrophils # Man Lymphocytes # (Manual) Monocytes # (Manual) PT INR APTT D-Dimer Heparin Anti-Xa Level ABG pH POC ABG pCO2 POC ABG pO2 ABG pO2 ABG HCO3 ABG O2 Saturation ABG Base Excess ABG Hemoglobin ABG Oxyhemoglobin ABG Sodium ABG Potassium ABG Glucose Oxyhemoglobin Sodium Potassium Chloride Carbon Dioxide 35 H BUN Creatinine 0.5 L Glucose 216 H POC Glucose 182 H Lactic Acid Calcium Phosphorus Magnesium Ferritin Lactate Dehydrogenase C-Reactive Protein NT-Pro-B Natriuret Pep Total Protein Albumin Triglycerides Arterial Blood Glucose Urine pH Ur Specific [place] Coronavirus (PCR) 04/07/21 04/07/21 04/07/21 07:55 11:57 17:12 WBC RBC Hgb Hct MCV MCHC RDW Plt Count Lymph % (Auto) [place] % (Auto) Lymph # (Auto) [place] # (Auto) Seg Neutrophils % Seg Neuts % (Manual) Lymphocytes % (Manual) Monocytes % (Manual) Nucleated RBC % Seg Neutrophils # Seg Neutrophils # Man Lymphocytes # (Manual) Monocytes # (Manual) PT INR APTT D-Dimer Heparin Anti-Xa Level < 0.10 L ABG pH POC ABG pCO2 POC ABG pO2 ABG pO2 ABG HCO3 ABG O2 Saturation ABG Base Excess ABG Hemoglobin ABG Oxyhemoglobin ABG Sodium ABG Potassium ABG Glucose Oxyhemoglobin Sodium Potassium Chloride Carbon Dioxide BUN Creatinine Glucose POC Glucose 182 H 165 H Lactic Acid Calcium Phosphorus Magnesium Ferritin Lactate Dehydrogenase C-Reactive Protein NT-Pro-B Natriuret Pep Total Protein Albumin Triglycerides Arterial Blood Glucose Urine pH Ur Specific [place] Coronavirus (PCR) 04/07/21 04/08/21 04/08/21 19:55 00:16 03:57 WBC RBC Hgb Hct MCV MCHC RDW Plt Count Lymph % (Auto) [place] % (Auto) Lymph # (Auto) [place] # (Auto) Seg Neutrophils % Seg Neuts % (Manual) Lymphocytes % (Manual) Monocytes % (Manual) Nucleated RBC % Seg Neutrophils # Seg Neutrophils # Man Lymphocytes # (Manual) Monocytes # (Manual) PT INR APTT D-Dimer Heparin Anti-Xa Level < 0.10 L ABG pH POC ABG pCO2 POC ABG pO2 ABG pO2 ABG HCO3 ABG O2 Saturation ABG Base Excess ABG Hemoglobin ABG Oxyhemoglobin ABG Sodium ABG Potassium ABG Glucose Oxyhemoglobin Sodium Potassium 5.8 H Chloride 95.5 L Carbon Dioxide 37 H BUN Creatinine 0.5 L Glucose 161 H POC Glucose 175 H Lactic Acid Calcium Phosphorus Magnesium Ferritin Lactate Dehydrogenase C-Reactive Protein NT-Pro-B Natriuret Pep Total Protein Albumin Triglycerides Arterial Blood Glucose Urine pH Ur Specific [place] Coronavirus (PCR) 04/08/21 04/08/21 04/08/21 04:00 05:43 09:26 WBC RBC 3.25 L Hgb 9.9 L Hct 30.8 L MCV 95 H MCHC RDW 16.0 H Plt Count 487 H Lymph % (Auto) [place] % (Auto) Lymph # (Auto) [place] # (Auto) Seg Neutrophils % Seg Neuts % (Manual) Lymphocytes % (Manual) Monocytes % (Manual) Nucleated RBC % Seg Neutrophils # Seg Neutrophils # Man Lymphocytes # (Manual) Monocytes # (Manual) PT INR APTT D-Dimer Heparin Anti-Xa Level ABG pH POC ABG pCO2 POC ABG pO2 ABG pO2 ABG HCO3 ABG O2 Saturation ABG Base Excess ABG Hemoglobin ABG Oxyhemoglobin ABG Sodium ABG Potassium ABG Glucose Oxyhemoglobin Sodium Potassium Chloride Carbon Dioxide BUN Creatinine Glucose POC Glucose 162 H 164 H Lactic Acid Calcium Phosphorus Magnesium Ferritin Lactate Dehydrogenase C-Reactive Protein NT-Pro-B Natriuret Pep Total Protein Albumin Triglycerides Arterial Blood Glucose Urine pH Ur Specific [place] Coronavirus (PCR) 04/08/21 04/08/21 04/08/21 11:53 17:19 20:35 WBC RBC Hgb Hct MCV MCHC RDW Plt Count Lymph % (Auto) [place] % (Auto) Lymph # (Auto) [place] # (Auto) Seg Neutrophils % Seg Neuts % (Manual) Lymphocytes % (Manual) Monocytes % (Manual) Nucleated RBC % Seg Neutrophils # Seg Neutrophils # Man Lymphocytes # (Manual) Monocytes # (Manual) PT INR APTT D-Dimer Heparin Anti-Xa Level ABG pH POC ABG pCO2 POC ABG pO2 ABG pO2 ABG HCO3 ABG O2 Saturation ABG Base Excess ABG Hemoglobin ABG Oxyhemoglobin ABG Sodium ABG Potassium ABG Glucose Oxyhemoglobin Sodium Potassium Chloride Carbon Dioxide BUN Creatinine Glucose POC Glucose 170 H 157 H 190 H Lactic Acid Calcium Phosphorus Magnesium Ferritin Lactate Dehydrogenase C-Reactive Protein NT-Pro-B Natriuret Pep Total Protein Albumin Triglycerides Arterial Blood Glucose Urine pH Ur Specific [place] Coronavirus (PCR) 04/08/21 04/09/21 04/09/21 23:52 04:21 04:21 WBC 11.4 H RBC 2.97 L Hgb 8.9 L Hct 27.8 L MCV MCHC RDW 15.8 H Plt Count 485 H Lymph % (Auto) [place] % (Auto) Lymph # (Auto) [place] # (Auto) Seg Neutrophils % Seg Neuts % (Manual) Lymphocytes % (Manual) Monocytes % (Manual) Nucleated RBC % Seg Neutrophils # Seg Neutrophils # Man Lymphocytes # (Manual) Monocytes # (Manual) PT INR APTT D-Dimer Heparin Anti-Xa Level ABG pH POC ABG pCO2 POC ABG pO2 ABG pO2 ABG HCO3 ABG O2 Saturation ABG Base Excess ABG Hemoglobin ABG Oxyhemoglobin ABG Sodium ABG Potassium ABG Glucose Oxyhemoglobin Sodium Potassium Chloride 97.1 L Carbon Dioxide 40 H BUN 21 H Creatinine 0.5 L Glucose 149 H POC Glucose 170 H Lactic Acid Calcium Phosphorus 1.90 L D Magnesium Ferritin Lactate Dehydrogenase C-Reactive Protein NT-Pro-B Natriuret Pep Total Protein Albumin Triglycerides Arterial Blood Glucose Urine pH Ur Specific [place] Coronavirus (PCR) 04/09/21 04/09/21 04/09/21 05:27 11:55 17:11 WBC RBC Hgb Hct MCV MCHC RDW Plt Count Lymph % (Auto) [place] % (Auto) Lymph # (Auto) [place] # (Auto) Seg Neutrophils % Seg Neuts % (Manual) Lymphocytes % (Manual) Monocytes % (Manual) Nucleated RBC % Seg Neutrophils # Seg Neutrophils # Man Lymphocytes # (Manual) Monocytes # (Manual) PT INR APTT D-Dimer Heparin Anti-Xa Level ABG pH POC ABG pCO2 POC ABG pO2 ABG pO2 ABG HCO3 ABG O2 Saturation ABG Base Excess ABG Hemoglobin ABG Oxyhemoglobin ABG Sodium ABG Potassium ABG Glucose Oxyhemoglobin Sodium Potassium Chloride Carbon Dioxide BUN Creatinine Glucose POC Glucose 144 H 190 H 163 H Lactic Acid Calcium Phosphorus Magnesium Ferritin Lactate Dehydrogenase C-Reactive Protein NT-Pro-B Natriuret Pep Total Protein Albumin Triglycerides Arterial Blood Glucose Urine pH Ur Specific [place] Coronavirus (PCR) 04/09/21 04/09/21 04/09/21 20:10 21:12 23:33 WBC RBC Hgb Hct MCV MCHC RDW Plt Count Lymph % (Auto) [place] % (Auto) Lymph # (Auto) [place] # (Auto) Seg Neutrophils % Seg Neuts % (Manual) Lymphocytes % (Manual) Monocytes % (Manual) Nucleated RBC % Seg Neutrophils # Seg Neutrophils # Man Lymphocytes # (Manual) Monocytes # (Manual) PT INR APTT D-Dimer Heparin Anti-Xa Level ABG pH POC ABG pCO2 POC ABG pO2 ABG pO2 68.1 L ABG HCO3 41.3 H ABG O2 Saturation ABG Base Excess 14.6 H ABG Hemoglobin 10.2 L ABG Oxyhemoglobin ABG Sodium ABG Potassium ABG Glucose Oxyhemoglobin 94.7 L Sodium Potassium Chloride Carbon Dioxide BUN Creatinine Glucose POC Glucose 163 H 164 H Lactic Acid Calcium Phosphorus Magnesium Ferritin Lactate Dehydrogenase C-Reactive Protein NT-Pro-B Natriuret Pep Total Protein Albumin Triglycerides Arterial Blood Glucose Urine pH Ur Specific [place] Coronavirus (PCR) 04/10/21 04/10/21 04/10/21 05:26 11:41 13:00 WBC RBC 3.09 L Hgb 9.3 L Hct 28.3 L MCV MCHC RDW 15.8 H Plt Count 480 H Lymph % (Auto) [place] % (Auto) Lymph # (Auto) [place] # (Auto) Seg Neutrophils % Seg Neuts % (Manual) Lymphocytes % (Manual) Monocytes % (Manual) Nucleated RBC % Seg Neutrophils # Seg Neutrophils # Man Lymphocytes # (Manual) Monocytes # (Manual) PT INR APTT D-Dimer Heparin Anti-Xa Level ABG pH POC ABG pCO2 POC ABG pO2 ABG pO2 ABG HCO3 ABG O2 Saturation ABG Base Excess ABG Hemoglobin ABG Oxyhemoglobin ABG Sodium ABG Potassium ABG Glucose Oxyhemoglobin Sodium Potassium Chloride Carbon Dioxide BUN Creatinine Glucose POC Glucose 172 H 150 H Lactic Acid Calcium Phosphorus Magnesium Ferritin Lactate Dehydrogenase C-Reactive Protein NT-Pro-B Natriuret Pep Total Protein Albumin Triglycerides Arterial Blood Glucose Urine pH Ur Specific [place] Coronavirus (PCR) 04/10/21 04/10/21 04/10/21 13:00 17:46 21:37 WBC RBC Hgb Hct MCV MCHC RDW Plt Count Lymph % (Auto) [place] % (Auto) Lymph # (Auto) [place] # (Auto) Seg Neutrophils % Seg Neuts % (Manual) Lymphocytes % (Manual) Monocytes % (Manual) Nucleated RBC % Seg Neutrophils # Seg Neutrophils # Man Lymphocytes # (Manual) Monocytes # (Manual) PT INR APTT D-Dimer Heparin Anti-Xa Level ABG pH POC ABG pCO2 POC ABG pO2 ABG pO2 ABG HCO3 ABG O2 Saturation ABG Base Excess ABG Hemoglobin ABG Oxyhemoglobin ABG Sodium ABG Potassium ABG Glucose Oxyhemoglobin Sodium Potassium Chloride 96.4 L Carbon Dioxide 34 H BUN Creatinine 0.5 L Glucose 165 H POC Glucose 165 H 166 H Lactic Acid Calcium Phosphorus Magnesium Ferritin Lactate Dehydrogenase C-Reactive Protein NT-Pro-B Natriuret Pep Total Protein Albumin Triglycerides Arterial Blood Glucose Urine pH Ur Specific [place] Coronavirus (PCR) 04/10/21 04/11/21 04/11/21 23:56 04:30 05:39 WBC 11.5 H RBC 3.02 L Hgb 8.9 L Hct 27.8 L MCV MCHC RDW 16.0 H Plt Count 505 H Lymph % (Auto) [place] % (Auto) Lymph # (Auto) [place] # (Auto) Seg Neutrophils % Seg Neuts % (Manual) Lymphocytes % (Manual) Monocytes % (Manual) Nucleated RBC % Seg Neutrophils # Seg Neutrophils # Man Lymphocytes # (Manual) Monocytes # (Manual) PT INR APTT D-Dimer Heparin Anti-Xa Level ABG pH POC ABG pCO2 POC ABG pO2 ABG pO2 ABG HCO3 ABG O2 Saturation ABG Base Excess ABG Hemoglobin ABG Oxyhemoglobin ABG Sodium ABG Potassium ABG Glucose Oxyhemoglobin Sodium Potassium Chloride Carbon Dioxide BUN Creatinine Glucose POC Glucose 156 H 164 H Lactic Acid Calcium Phosphorus Magnesium Ferritin Lactate Dehydrogenase C-Reactive Protein NT-Pro-B Natriuret Pep Total Protein Albumin Triglycerides Arterial Blood Glucose Urine pH Ur Specific [place] Coronavirus (PCR) 04/11/21 04/11/21 04/11/21 06:47 06:47 11:29 WBC RBC 3.35 L Hgb 9.8 L Hct 30.7 L MCV MCHC RDW 16.3 H Plt Count 520 H Lymph % (Auto) [place] % (Auto) Lymph # (Auto) [place] # (Auto) Seg Neutrophils % Seg Neuts % (Manual) 76.0 H Lymphocytes % (Manual) 10.0 L Monocytes % (Manual) Nucleated RBC % Seg Neutrophils # Seg Neutrophils # Man 8.3 H Lymphocytes # (Manual) 1.1 L Monocytes # (Manual) PT INR APTT D-Dimer Heparin Anti-Xa Level ABG pH POC ABG pCO2 POC ABG pO2 ABG pO2 ABG HCO3 ABG O2 Saturation ABG Base Excess ABG Hemoglobin ABG Oxyhemoglobin ABG Sodium ABG Potassium ABG Glucose Oxyhemoglobin Sodium Potassium Chloride 97.7 L Carbon Dioxide 34 H BUN Creatinine 0.4 L Glucose 178 H POC Glucose 170 H Lactic Acid Calcium Phosphorus Magnesium Ferritin Lactate Dehydrogenase C-Reactive Protein NT-Pro-B Natriuret Pep Total Protein Albumin Triglycerides Arterial Blood Glucose Urine pH Ur Specific [place] Coronavirus (PCR) 0204/11/21 04/11/21 18:17 18:17 18:17 WBC RBC 3.22 L Hgb 9.5 L Hct 29.8 L MCV MCHC RDW 16.0 H Plt Count Lymph % (Auto) [place] % (Auto) Lymph # (Auto) [place] # (Auto) Seg Neutrophils % Seg Neuts % (Manual) Lymphocytes % (Manual) Monocytes % (Manual) Nucleated RBC % Seg Neutrophils # Seg Neutrophils # Man Lymphocytes # (Manual) Monocytes # (Manual) PT INR APTT 61.1 H* D-Dimer Heparin Anti-Xa Level ABG pH POC ABG pCO2 POC ABG pO2 ABG pO2 ABG HCO3 ABG O2 Saturation ABG Base Excess ABG Hemoglobin ABG Oxyhemoglobin ABG Sodium ABG Potassium ABG Glucose Oxyhemoglobin Sodium Potassium Chloride Carbon Dioxide BUN Creatinine 0.3 L Glucose POC Glucose Lactic Acid Calcium Phosphorus Magnesium Ferritin Lactate Dehydrogenase C-Reactive Protein NT-Pro-B Natriuret Pep Total Protein Albumin Triglycerides Arterial Blood Glucose Urine pH Ur Specific [place] Coronavirus (PCR) 04/11/21 04/12/21 04/12/21 18:25 00:19 05:11 WBC RBC 2.92 L Hgb 8.6 L Hct 26.9 L MCV MCHC RDW 16.3 H Plt Count 460 H Lymph % (Auto) [place] % (Auto) Lymph # (Auto) [place] # (Auto) Seg Neutrophils % Seg Neuts % (Manual) Lymphocytes % (Manual) Monocytes % (Manual) Nucleated RBC % Seg Neutrophils # Seg Neutrophils # Man Lymphocytes # (Manual) Monocytes # (Manual) PT INR APTT D-Dimer Heparin Anti-Xa Level ABG pH POC ABG pCO2 POC ABG pO2 ABG pO2 ABG HCO3 ABG O2 Saturation ABG Base Excess ABG Hemoglobin ABG Oxyhemoglobin ABG Sodium ABG Potassium ABG Glucose Oxyhemoglobin Sodium Potassium Chloride Carbon Dioxide BUN Creatinine Glucose POC Glucose 167 H 128 H Lactic Acid Calcium Phosphorus Magnesium Ferritin Lactate Dehydrogenase C-Reactive Protein NT-Pro-B Natriuret Pep Total Protein Albumin Triglycerides Arterial Blood Glucose Urine pH Ur Specific [place] Coronavirus (PCR) 04/12/21 04/12/21 04/12/21 05:11 05:11 06:23 WBC RBC Hgb Hct MCV MCHC RDW Plt Count Lymph % (Auto) [place] % (Auto) Lymph # (Auto) [place] # (Auto) Seg Neutrophils % Seg Neuts % (Manual) Lymphocytes % (Manual) Monocytes % (Manual) Nucleated RBC % Seg Neutrophils # Seg Neutrophils # Man Lymphocytes # (Manual) Monocytes # (Manual) PT INR APTT D-Dimer Heparin Anti-Xa Level 1.03 H ABG pH POC ABG pCO2 POC ABG pO2 ABG pO2 ABG HCO3 ABG O2 Saturation ABG Base Excess ABG Hemoglobin ABG Oxyhemoglobin ABG Sodium ABG Potassium ABG Glucose Oxyhemoglobin Sodium Potassium Chloride Carbon Dioxide 34 H BUN Creatinine 0.3 L Glucose 153 H POC Glucose 162 H Lactic Acid Calcium Phosphorus Magnesium Ferritin Lactate Dehydrogenase C-Reactive Protein NT-Pro-B Natriuret Pep Total Protein Albumin Triglycerides Arterial Blood Glucose Urine pH Ur Specific [place] Coronavirus (PCR) 04/12/21 04/12/21 04/12/21 09:45 11:08 15:56 WBC RBC Hgb Hct MCV MCHC RDW Plt Count Lymph % (Auto) [place] % (Auto) Lymph # (Auto) [place] # (Auto) Seg Neutrophils % Seg Neuts % (Manual) Lymphocytes % (Manual) Monocytes % (Manual) Nucleated RBC % Seg Neutrophils # Seg Neutrophils # Man Lymphocytes # (Manual) Monocytes # (Manual) PT INR APTT D-Dimer Heparin Anti-Xa Level ABG pH POC ABG pCO2 POC ABG pO2 ABG pO2 70.8 L ABG HCO3 41.0 H ABG O2 Saturation ABG Base Excess 13.7 H ABG Hemoglobin 8.3 L ABG Oxyhemoglobin ABG Sodium ABG Potassium ABG Glucose Oxyhemoglobin 94.0 L Sodium Potassium Chloride Carbon Dioxide BUN Creatinine Glucose POC Glucose 174 H 146 H Lactic Acid Calcium Phosphorus Magnesium Ferritin Lactate Dehydrogenase C-Reactive Protein NT-Pro-B Natriuret Pep Total Protein Albumin Triglycerides Arterial Blood Glucose Urine pH Ur Specific [place] Coronavirus (PCR) 04/12/21 04/12/21 04/13/21 21:55 23:25 04:34 WBC 12.5 H RBC 2.97 L Hgb 8.9 L Hct 27.3 L MCV MCHC RDW 16.4 H Plt Count 470 H Lymph % (Auto) [place] % (Auto) Lymph # (Auto) [place] # (Auto) Seg Neutrophils % Seg Neuts % (Manual) Lymphocytes % (Manual) Monocytes % (Manual) Nucleated RBC % Seg Neutrophils # Seg Neutrophils # Man Lymphocytes # (Manual) Monocytes # (Manual) PT INR APTT D-Dimer Heparin Anti-Xa Level ABG pH POC ABG pCO2 POC ABG pO2 ABG pO2 ABG HCO3 ABG O2 Saturation ABG Base Excess ABG Hemoglobin ABG Oxyhemoglobin ABG Sodium ABG Potassium ABG Glucose Oxyhemoglobin Sodium Potassium Chloride Carbon Dioxide BUN Creatinine Glucose POC Glucose 142 H 170 H Lactic Acid Calcium Phosphorus Magnesium Ferritin Lactate Dehydrogenase C-Reactive Protein NT-Pro-B Natriuret Pep Total Protein Albumin Triglycerides Arterial Blood Glucose Urine pH Ur Specific [place] Coronavirus (PCR) 04/13/21 04/13/21 04/13/21 04:34 05:17 11:14 WBC RBC Hgb Hct MCV MCHC RDW Plt Count Lymph % (Auto) [place] % (Auto) Lymph # (Auto) [place] # (Auto) Seg Neutrophils % Seg Neuts % (Manual) Lymphocytes % (Manual) Monocytes % (Manual) Nucleated RBC % Seg Neutrophils # Seg Neutrophils # Man Lymphocytes # (Manual) Monocytes # (Manual) PT INR APTT D-Dimer Heparin Anti-Xa Level ABG pH POC ABG pCO2 POC ABG pO2 ABG pO2 ABG HCO3 ABG O2 Saturation ABG Base Excess ABG Hemoglobin ABG Oxyhemoglobin ABG Sodium ABG Potassium ABG Glucose Oxyhemoglobin Sodium Potassium Chloride 96.6 L Carbon Dioxide 41 H* D BUN Creatinine 0.3 L Glucose 171 H POC Glucose 141 H 149 H Lactic Acid Calcium Phosphorus Magnesium Ferritin Lactate Dehydrogenase C-Reactive Protein NT-Pro-B Natriuret Pep Total Protein Albumin Triglycerides Arterial Blood Glucose Urine pH Ur Specific [place] Coronavirus (PCR) 04/13/21 04/13/21 04/14/21 15:51 23:35 04:32 WBC 13.8 H RBC 2.64 L Hgb 8.0 L Hct 24.1 L MCV MCHC RDW 16.1 H Plt Count Lymph % (Auto) [place] % (Auto) Lymph # (Auto) [place] # (Auto) Seg Neutrophils % Seg Neuts % (Manual) Lymphocytes % (Manual) Monocytes % (Manual) Nucleated RBC % Seg Neutrophils # Seg Neutrophils # Man Lymphocytes # (Manual) Monocytes # (Manual) PT INR APTT D-Dimer Heparin Anti-Xa Level ABG pH POC ABG pCO2 POC ABG pO2 ABG pO2 ABG HCO3 ABG O2 Saturation ABG Base Excess ABG Hemoglobin ABG Oxyhemoglobin ABG Sodium ABG Potassium ABG Glucose Oxyhemoglobin Sodium Potassium Chloride Carbon Dioxide BUN Creatinine Glucose POC Glucose 136 H 167 H Lactic Acid Calcium Phosphorus Magnesium Ferritin Lactate Dehydrogenase C-Reactive Protein NT-Pro-B Natriuret Pep Total Protein Albumin Triglycerides Arterial Blood Glucose Urine pH Ur Specific [place] Coronavirus (PCR) 04/14/21 04/14/21 04/14/21 04:32 05:18 11:03 WBC RBC Hgb Hct MCV MCHC RDW Plt Count Lymph % (Auto) [place] % (Auto) Lymph # (Auto) [place] # (Auto) Seg Neutrophils % Seg Neuts % (Manual) Lymphocytes % (Manual) Monocytes % (Manual) Nucleated RBC % Seg Neutrophils # Seg Neutrophils # Man Lymphocytes # (Manual) Monocytes # (Manual) PT INR APTT D-Dimer Heparin Anti-Xa Level ABG pH POC ABG pCO2 POC ABG pO2 ABG pO2 ABG HCO3 ABG O2 Saturation ABG Base Excess ABG Hemoglobin ABG Oxyhemoglobin ABG Sodium ABG Potassium ABG Glucose Oxyhemoglobin Sodium Potassium Chloride 95.5 L Carbon Dioxide 38 H BUN Creatinine 0.4 L Glucose 141 H POC Glucose 140 H 143 H Lactic Acid Calcium Phosphorus Magnesium Ferritin Lactate Dehydrogenase C-Reactive Protein NT-Pro-B Natriuret Pep Total Protein Albumin Triglycerides Arterial Blood Glucose Urine pH Ur Specific [place] Coronavirus (PCR) 04/14/21 04/14/21 04/14/21 16:38 23:46 Unknown WBC RBC Hgb Hct MCV MCHC RDW Plt Count Lymph % (Auto) [place] % (Auto) Lymph # (Auto) [place] # (Auto) Seg Neutrophils % Seg Neuts % (Manual) Lymphocytes % (Manual) Monocytes % (Manual) Nucleated RBC % Seg Neutrophils # Seg Neutrophils # Man Lymphocytes # (Manual) Monocytes # (Manual) PT INR APTT D-Dimer Heparin Anti-Xa Level ABG pH POC ABG pCO2 POC ABG pO2 ABG pO2 ABG HCO3 ABG O2 Saturation ABG Base Excess ABG Hemoglobin ABG Oxyhemoglobin ABG Sodium ABG Potassium ABG Glucose Oxyhemoglobin Sodium Potassium Chloride Carbon Dioxide BUN Creatinine Glucose POC Glucose 157 H 155 H Lactic Acid Calcium Phosphorus Magnesium Ferritin Lactate Dehydrogenase C-Reactive Protein NT-Pro-B Natriuret Pep Total Protein Albumin Triglycerides Arterial Blood Glucose Urine pH 8.0 H Ur Specific [place] Coronavirus (PCR) 04/15/21 04/15/21 04/15/21 04:44 04:44 05:52 WBC 15.8 H RBC 2.96 L Hgb 8.9 L Hct 27.1 L MCV MCHC RDW 16.5 H Plt Count 507 H Lymph % (Auto) [place] % (Auto) Lymph # (Auto) [place] # (Auto) Seg Neutrophils % Seg Neuts % (Manual) Lymphocytes % (Manual) Monocytes % (Manual) Nucleated RBC % Seg Neutrophils # Seg Neutrophils # Man Lymphocytes # (Manual) Monocytes # (Manual) PT INR APTT D-Dimer Heparin Anti-Xa Level ABG pH POC ABG pCO2 POC ABG pO2 ABG pO2 ABG HCO3 ABG O2 Saturation ABG Base Excess ABG Hemoglobin ABG Oxyhemoglobin ABG Sodium ABG Potassium ABG Glucose Oxyhemoglobin Sodium Potassium Chloride 96.9 L Carbon Dioxide 38 H BUN Creatinine 0.4 L Glucose 163 H POC Glucose 167 H Lactic Acid Calcium Phosphorus Magnesium Ferritin Lactate Dehydrogenase C-Reactive Protein NT-Pro-B Natriuret Pep Total Protein Albumin Triglycerides Arterial Blood Glucose Urine pH Ur Specific [place] Coronavirus (PCR) 04/15/21 04/15/21 04/15/21 11:35 17:20 18:10 WBC RBC Hgb Hct MCV MCHC RDW Plt Count Lymph % (Auto) [place] % (Auto) Lymph # (Auto) [place] # (Auto) Seg Neutrophils % Seg Neuts % (Manual) Lymphocytes % (Manual) Monocytes % (Manual) Nucleated RBC % Seg Neutrophils # Seg Neutrophils # Man Lymphocytes # (Manual) Monocytes # (Manual) PT INR APTT D-Dimer Heparin Anti-Xa Level ABG pH 7.477 H POC ABG pCO2 POC ABG pO2 ABG pO2 ABG HCO3 40.6 H ABG O2 Saturation ABG Base Excess 15.2 H ABG Hemoglobin 9.0 L ABG Oxyhemoglobin ABG Sodium ABG Potassium ABG Glucose Oxyhemoglobin 94.7 L Sodium Potassium Chloride Carbon Dioxide BUN Creatinine Glucose POC Glucose 179 H 165 H Lactic Acid Calcium Phosphorus Magnesium Ferritin Lactate Dehydrogenase C-Reactive Protein NT-Pro-B Natriuret Pep Total Protein Albumin Triglycerides Arterial Blood Glucose Urine pH Ur Specific [place] Coronavirus (PCR) 04/15/21 04/16/21 04/16/21 23:39 04:33 04:33 WBC 13.1 H RBC 3.26 L Hgb 9.5 L Hct 30.2 L MCV MCHC 31 L RDW 16.2 H Plt Count Lymph % (Auto) [place] % (Auto) Lymph # (Auto) [place] # (Auto) Seg Neutrophils % Seg Neuts % (Manual) Lymphocytes % (Manual) Monocytes % (Manual) Nucleated RBC % Seg Neutrophils # Seg Neutrophils # Man Lymphocytes # (Manual) Monocytes # (Manual) PT INR APTT D-Dimer Heparin Anti-Xa Level ABG pH POC ABG pCO2 POC ABG pO2 ABG pO2 ABG HCO3 ABG O2 Saturation ABG Base Excess ABG Hemoglobin ABG Oxyhemoglobin ABG Sodium ABG Potassium ABG Glucose Oxyhemoglobin Sodium Potassium Chloride 95.8 L Carbon Dioxide 34 H BUN 24 H Creatinine 0.4 L Glucose 153 H POC Glucose 155 H Lactic Acid Calcium Phosphorus Magnesium 2.40 H Ferritin Lactate Dehydrogenase C-Reactive Protein NT-Pro-B Natriuret Pep Total Protein Albumin Triglycerides Arterial Blood Glucose Urine pH Ur Specific [place] Coronavirus (PCR) 04/16/21 04/16/21 04/16/21 04:55 05:29 11:02 WBC RBC Hgb Hct MCV MCHC RDW Plt Count Lymph % (Auto) [place] % (Auto) Lymph # (Auto) [place] # (Auto) Seg Neutrophils % Seg Neuts % (Manual) Lymphocytes % (Manual) Monocytes % (Manual) Nucleated RBC % Seg Neutrophils # Seg Neutrophils # Man Lymphocytes # (Manual) Monocytes # (Manual) PT INR APTT D-Dimer Heparin Anti-Xa Level ABG pH 7.487 H POC ABG pCO2 POC ABG pO2 ABG pO2 75.4 L ABG HCO3 40.6 H ABG O2 Saturation ABG Base Excess 15.3 H ABG Hemoglobin 8.9 L ABG Oxyhemoglobin ABG Sodium ABG Potassium ABG Glucose Oxyhemoglobin Sodium Potassium Chloride Carbon Dioxide BUN Creatinine Glucose POC Glucose 168 H 170 H Lactic Acid Calcium Phosphorus Magnesium Ferritin Lactate Dehydrogenase C-Reactive Protein NT-Pro-B Natriuret Pep Total Protein Albumin Triglycerides Arterial Blood Glucose Urine pH Ur Specific [place] Coronavirus (PCR) 04/16/21 04/16/21 04/17/21 16:13 23:41 04:25 WBC 12.5 H RBC 3.00 L Hgb 8.9 L Hct 27.2 L MCV MCHC RDW 16.0 H Plt Count Lymph % (Auto) [place] % (Auto) Lymph # (Auto) [place] # (Auto) Seg Neutrophils % Seg Neuts % (Manual) Lymphocytes % (Manual) Monocytes % (Manual) Nucleated RBC % Seg Neutrophils # Seg Neutrophils # Man Lymphocytes # (Manual) Monocytes # (Manual) PT INR APTT D-Dimer Heparin Anti-Xa Level ABG pH POC ABG pCO2 POC ABG pO2 ABG pO2 ABG HCO3 ABG O2 Saturation ABG Base Excess ABG Hemoglobin ABG Oxyhemoglobin ABG Sodium ABG Potassium ABG Glucose Oxyhemoglobin Sodium Potassium Chloride Carbon Dioxide BUN Creatinine Glucose POC Glucose 167 H 150 H Lactic Acid Calcium Phosphorus Magnesium Ferritin Lactate Dehydrogenase C-Reactive Protein NT-Pro-B Natriuret Pep Total Protein Albumin Triglycerides Arterial Blood Glucose Urine pH Ur Specific [place] Coronavirus (PCR) 04/17/21 04/17/21 04/17/21 04:25 05:23 11:18 WBC RBC Hgb Hct MCV MCHC RDW Plt Count Lymph % (Auto) [place] % (Auto) Lymph # (Auto) [place] # (Auto) Seg Neutrophils % Seg Neuts % (Manual) Lymphocytes % (Manual) Monocytes % (Manual) Nucleated RBC % Seg Neutrophils # Seg Neutrophils # Man Lymphocytes # (Manual) Monocytes # (Manual) PT INR APTT D-Dimer Heparin Anti-Xa Level ABG pH POC ABG pCO2 POC ABG pO2 ABG pO2 ABG HCO3 ABG O2 Saturation ABG Base Excess ABG Hemoglobin ABG Oxyhemoglobin ABG Sodium ABG Potassium ABG Glucose Oxyhemoglobin Sodium 136 L Potassium Chloride 92.4 L Carbon Dioxide 36 H BUN 23 H Creatinine 0.4 L Glucose 145 H POC Glucose 128 H 163 H Lactic Acid Calcium Phosphorus Magnesium Ferritin Lactate Dehydrogenase C-Reactive Protein NT-Pro-B Natriuret Pep Total Protein Albumin Triglycerides Arterial Blood Glucose Urine pH Ur Specific [place] Coronavirus (PCR) Chest x-ray: pending Allied health notes reviewed: RT
--- NOTE | 2021-04-17 17:25 | Progress Note ---
Assessment and Plan Cultures: SARS CoV2 PCR: positive 03/08/2021 blood culture: no growth 03/10/2021 sputum culture: Usual respiratory marlyn 03/16/2021 blood culture: In process 03/18/2021 sputum culture: Stenotrophomonas A/P: 61-year-old male with diabetes, hypertension admitted to the hospital with complaints of shortness of breath and feeling weak for the last 1 week: #Sepsis secondary to bilateral pneumonia: secondary to COVID-19. Elevated inflammatory markers. WBC 22.6, creatinine 1.3, ferritin 877, CRP 18.0, LDH 624, procalcitonin 0.18. D-dimer >10k. CTA negative for pulmonary embolism, severe patchy groundglass opacities. #New fever: probably COVID related. #Acute hypoxic respiratory failure: initially required BiPAP, now intubated, on the vent. #DM #HTN Recs: -Completed Bactrim for Stenotrophomonas -Continue cefepime for 8 days -Check new procalcitonin -Follow up new sputum cultures -completed IV remdesivir -s/p Actemra 03/10/2021 -prophylactic anticoagulation based on d-dimer per hospital protocol -s/p trach/PEG Nayan Goins MD [facility] ([facility] O: [phone] F: [phone] Subjective Date of service: 04/17/21 Principal diagnosis: COVID-19 infection; DM II; Bilateral pneumonia; Obesity; HTN Interval history: Afebrile over the weekend, white count 5.5. Repeat cultures are no growth so far. Imaging personally reviewed: Chest x-ray: Mild improvement in pulmonary opacities . Objective - Exam Narrative Exam: Physical exam deferred to reduce risk of transmission of COVID-19. Please refer to primary team's note. - Constitutional Vitals: Vital Signs Temp Pulse Resp BP Pulse Ox 99.4 F 100 H 35 H 122/77 98 04/17/21 12:00 04/17/21 17:00 04/17/21 17:00 04/17/21 17:00 04/17/21 17:00 Temperature -Last 24 Hours Temperature 99.4 F Temperature 99.6 F Temperature 98.3 F Temperature 99.8 F Temperature 99.7 F - Labs CBC & Chem 7: 04/17/21 04:25 04/17/21 04:25 Labs: Abnormal lab results 04/16/21 04/17/21 04/17/21 Range/Units 23:41 04:25 04:25 WBC 12.5 H (4.5-11.0) K/mm3 RBC 3.00 L (3.65-5.03) M/mm3 Hgb 8.9 L (11.8-15.2) gm/dl Hct 27.2 L (35.5-45.6) % RDW 16.0 H (13.2-15.2) % Sodium 136 L (137-145) mmol/L Chloride 92.4 L (98-107) mmol/L Carbon Dioxide 36 H (22-30) mmol/L BUN 23 H (9-20) mg/dL Creatinine 0.4 L (0.8-1.3) mg/dL Glucose 145 H (75-100) mg/dL POC Glucose 150 H (70-105) mg/dL 04/17/21 04/17/21 04/17/21 Range/Units 05:23 11:18 16:50 WBC (4.5-11.0) K/mm3 RBC (3.65-5.03) M/mm3 Hgb (11.8-15.2) gm/dl Hct (35.5-45.6) % RDW (13.2-15.2) % Sodium (137-145) mmol/L Chloride (98-107) mmol/L Carbon Dioxide (22-30) mmol/L BUN (9-20) mg/dL Creatinine (0.8-1.3) mg/dL Glucose (75-100) mg/dL POC Glucose 128 H 163 H 137 H (70-105) mg/dL
--- NOTE | 2021-04-17 18:02 | Progress Note ---
Assessment and Plan Assessment and plan: This is a 61-year-old man with HTN and DM admitted with COVID-19 pneumonia, acute hypoxic respiratory failure, sepsis Neuro: Acute encephalopathy -s/p fentanyl gtt, Seroquel and Librium -Avoid delirium -Reorientation as needed -Maintain sleep-wake cycle -As needed analgesia -CT head shows no acute intracranial abnormality -Neurology consulted, appreciate recommendations -04/10 CT head shows no focal mass, hemorrhage, hydrocephalus or acute large territorial infarct but shows significant sinus disease with significant opacification of the mastoids bilaterally and mild middle ear cavity disease suggested as well -MRI brain pending Cardiac: h/o Hypertension -Cardiology consulted, appreciate recommendations -Blood pressure monitoring per protocol -Echocardiogram shows a mildly dilated ascending aorta, normal LV systolic function, mild concentric LVH, LVEF 60 to 65% -Antihypertensive regimen: Hydralazine, metoprolol, amlodipine Respiratory: Acute hypoxic respiratory failure -CCM consulted, appreciate recommendations -Intubated on 03/10 with 7.50 ETT at 24 at the lips, s/p trach on 03/29 -A.m. vent settings: Assist-control rate 12, tidal volume 450, PEEP 8, FiO2 40% -See RT notes for titration -CCM decreased peep ot 6 -PSV -plan for t piece in AM -Albuterol as needed, Brovana, Pulmicort -VAP bundle -SPO2 monitoring GI: Obesity, external hemorrhoids -24 hours +405 mL -PPI -NTR consulted for tube feedings -BR: Senokot, miralax -BM 04/17 -As needed Preparation H : Urinary retention -Nephrology consulted, appreciate recommendations -Strict intake and output -Renally dose medications -Avoid nephrotoxic medications -Doxazosin increased to twice daily -will remove yusuf today and bladder scan -trend BMP ID: Severe sepsis (POA), COVID-19 pneumonia, stenotrophomonas maltophilia in tracheal aspirate -Infectious disease consulted, appreciate recommendations -Antibiotic therapy with cefepime -Due to low procalcitonin and cultures remaining negative cefepime was discontinued -S/p remdesivir for 5 days -S/p Actemra 03/10/2021 -f/u blood culture -Monitor WBC and temperature curve -s/p steroids -IV Cefepime + Vancomycin started -04/23 -f/u procal in am -03/16 Fungitell and histoplasma negative Heme: Acute right upper extremity DVT , superficial thrombus in left gastrocnemius vein -Bilateral lower extremity ultrasound negative for DVT, superficial thrombus in left gastrocnemius vein -repeat BLE Doppler US show superficial thrombus -Repeat bilateral upper extremity ultrasound shows DVT in right upper extremity -heparin drip to eliquis PO -repeat BLE UE dopplar showed superficial thrombus within the gastrocnemius vein unchanged from previous study -CTA chest shows no gross pulm embolism -Trend CBC -SCDs to BLE while in bed -Transfuse hemoglobin less than 7 -Monitor for signs of bleeding Endo: h/o DM -Avoid hypoglycemia -SSI -Accu-Cheks q. 6 -Long-acting insulin, titrate as needed The high probability of a clinically significant, sudden or life threatening deterioration of the [multi] system(s) required my full and direct attention, intervention and personal management. The aggregate critical care time was [60] minutes. This time is in addition to time spent performing reported procedures but includes the following: [x] Data Review and interpretation [x] Patient assessment and monitoring of vital signs [x] Documentation [x] Medication orders and management Disposition Plan: icu Total Time Spent with Patient (Minutes): 60 History Interval history: This is a 61-year-old male with HTN and DM who presented to the emergency department on 03/09 with shortness of breath and hypoxia via EMS. Patient had apparently been feeling ill for proxy 1 week prior to mentation. Upon EMS arrival patient SPO2 was in the low 70s and improved to upper 80slow 90s on nonrebreather and he was transported to [facility] in the emergency department patient was noted to be hypoxic and placed on a BiPAP with improvement to mentation and hypoxia. CXR showed bilateral patchy infiltrates. Lab work showed leukocytosis, elevated D-dimer, hyponatremia, hypochloremia and elevated COVID-19 markers with elevated BNP. CTA chest showed no pulmonary embolism. Patient was admitted to the hospitalist service as a COVID-19 PUI and started on antibiotics and Decadron with consult to infectious disease. 03/09: The patient was seen and evaluated today, and he was found to be hemodynamically stable. The patient is currently on BiPAP for possible COVID-19 pneumonia. He was started on Lovenox 1mg/kg for DVT ppx in the setting of d- dimer > 10,000. Infectious Disease was consulted. The patient is pending a TTE. 03/10: No acute events overnight, patient was intubated in the afternoon transferred to ICU 03/11: Patient started on Lantus, free water flushes increased, propofol drip resumed and oral antihypertensive added. 03/12: lantus increased, k at 5, will monitor. I updated his family and his stated that he is not vaccinated. He does have HTN and she will call the RN to update home medications. She did say he takes bystolic and amlopine. She inquired about ventilator and lab work. She had no further questions. 03/13: KVNG overnight. Patient remains hyperglycemic, basal insulin adjusted and increased to Q12hrs. Patient is overall net positive since admit X1 dose of IV lasix, repeat BMP this afternoon. 03/14: Failed SAT this am due to increase agitation, tachycardia and hypertension. Remains on propofol and fentanyl gtt. Hyperkalemia treated with PO kayaxalate. Patient responded to IV lasix yesterday additional dose again today for a net negative balance. Repeat BMP this afternoon. Insulin adjusted for hyperglycemia. 03/15: Remains encephalopathic, not following commansd. Orders placed for CT head/Brain and Neuro consulted. Rectal bleeding subsided, most likely due to hemorrhoids. H&H is stable will continue to monitor. Kayaxexalate for high K, repeat labs 4 to 6hrs post treatment. 03/16: Still agiated this am, CT head with no acute Abn. CXR and ABG noted- evolving pna and worsening hypoxia, now with low grade fevers. Sputum culture ordered, IV Abx added, ID on cosult. 03/17: This am ABG noted, hypoxia improved. Continue to wean FiO2 as tolerated. Still with low grade fevers, on IV Abx per ID. Still with periods of confusion despite sedation, seroquel increased. F/u CXR in the am 03/18: still very agitated especially when off sedation, with hypertension and tachycardia. Continue sedation for RASS -2, PRN antihypertensive for SPB greater than 160. This febrile this am, continue current IV abx per ID 03/19: Patient afebrile overnight, continue IV Abx per ID. ABG also improved this am, continue to wean FIO2 as tolerated. PRN antihypertensive for hypertension. 03/20: Hyperkalemia treated with Kayexalate, Yusuf discontinued, vancomycin and cefepime stopped started Bactrim by ID. Steroid taper started. 03/21: BB started for hypertension, Seroquel increased for agitation and Librium started no acute events reported overnight. CCM made vent changes 03/22: Adjustment to anxiolytics, respiratory rate on ventilator per CCM. Patient noted to have bleeding hemorrhoids with clot, requested RN to remove bowel management system and will order Preparation H. 03/23: Given no confirmed DVT or PE (only superficial thrombus noted on Dopplers) therapeutic Lovenox changed to prophylactic Lovenox. Started on doxazosin to help with retention. Consulted surgery for tracheostomy and propofol discontinued. 03/24: Surgery consult completed, patient changed to prophylaxis anticoagulation, started on doxazosin yesterday with plans to remove Yusuf catheter in 48 hours. Patient with slight hypokalemia today and given Kayexalate. No acute events reported overnight. 03/25: No acute events reported overnight. Patient remains on fentanyl drip and on CPAP trial this morning. 03/26: no acute events reported overnight. placed on CPAP this AM, remains on fent/librium. scheduled for trach/peg this week. 03/27: Hypoglycemic this am, will decreased lantus to Qhs. Plan for possible Trac h and Peg by Gen Surg this am. Case management to arrange possible LTAC placement 03/28: KVNG overnight. Tolerating PST this am. Plan for trach and PEG tomorrow by Gen. Surgery, NPO after midnight. 03/29: No significant changes overnight. Plan for trach and Peg today. Case management to arrange possible LTAC placement 03/30. S/p Trach and PEG, no complications noted. High residual yesterday despite NPO status, reglan added X2 days. Per RN no residual this am, patient is tolerating TF. Continue to advance TF as tolerated. Norvasc added for hypertension. Pitting edema also appreciated, some diuretic might be beneficial, will d/w CCM. Continue daily PST as tolerated. 03/31: Patient remains on the vent still on fentanyl gtt with periods of agitation. PRN analgesia added, plan to start weaning off fentanyl gtt. Febrile this am, completed IV abx course. Will panculture for now, ID is also following. 2/5: Still febrile overnight, cultures result pending, continue IV ABx per ID. Failed PST this am. Continue daily PST and vent wean per [facility]. Case management to arrange possible placement. 04/02: KVNG overnight. Fevers improved overnight, continue to follow cultures data, IV ABx per ID. Continue daily PST and wean vent as per [facility]. 04/03: Given low procalcitonin, unchanged CXR and cultures with no growth cefepime was discontinued by ID. LTAC evaluation ongoing. No acute events reported overnight. 04/04: IV Lasix stopped today, Seroquel taper started, fentanyl drip on hold and steroids stopped. Pressure support trial again today. 04/05: Patient had to be restarted on fentanyl drip therefore Seroquel was increased back to 250 twice daily and he was started on scheduled narcotics and efforts to wean fentanyl drip. Doxazosin was increased to twice daily as patient still had retention issues on doxazosin once a day. Patient was denied LTAC placement. CPAP trial today. 04/06: Right upper extremity ultrasound obtained due to edema which showed DVT. Patient started on heparin drip. Overnight patient had hypoxia, tachypnea, tachycardia, hypotension and FiO2 was increased to 100%. RT titrating as tolerated. Plan was to start T-piece trials today. Patient has been denied LTAC placement. 04/07: BLE dopplar, continue lasix per [facility], CXR in AM. Increase in fio2 overnight d/t desaturation. Wean FiO2 as tolerated. 04/08: Patient remains on 65% FiO2, s/p Lasix for 3 doses, hyperkalemia noted today and medically treated. [facility] plans to consult heme/onc once FiO2 decreased. Remains on heparin gtt 04/09: No acute events reported overnight, possible heme-onc consult on Saturday or Saturday regarding upper extremity DVT, wean FiO2 as tolerated. Repeat CT head on Monday 04/10: Patient mentation is unchanged, repeat CT head today. Remains on heparin gtt per protocol. Continue daily PST as tolerated. 04/11: Increased work of breathing and high RR overnight, vent FiO2 increased to 55%. Resolved this am, patient is tolerating PST, no acute distress noted. Wean Fio2 as tolerated for SPO2 above 92%, Follow up CXR and ABG in the am. Antihypertensive regimen adjusted for better BP control. 2/16: Patient with coarse lungs and increased secretion today. This am CXR noted with worsen infiltrate, 40 of Lasix given, repeat CXR in the am. Patient remains afebrile, complete IV Abx course, VSS. Transitioned to PO Eliquis overnight, continue to keep patient net negative for better lung compliance. Continue daily PST as tolerated. 04/13: Patient is off sedation this am. Remains unresponsive. Librium D/C and Seroquel was adjusted to Qhs, PRN analgesia for pain management. Patient respond ed well to IV lasix, this am CXR with some improvement, additional IV lasix ordered again today. high CO2 also noted from this am, ABG ordered. Patient is tolerating PST this am, SPO2 remains above 95%. Continue daily PST plan to get patient off the vent for possible SNF placemement 04/14: Patient mentation is unchanged despite reducing sedative agents. Will hold all scheduled sedatives agents for now, PRN analgesics for pain management and vent synchrony. Patient spike a temp this am, orders placed for cultures, IV abx per ID. Additional lasix today, F/u CXR in the am. Patient is tolerating PST this am. 04/15: Remains febrile overnight. Culture data pending, back on IV Abx per ID. Gentle fluid management with IV lasix. Keep patient at a net negative balance. Continue daily PST as tolerated. 04/16: Open eyes spontaneously this am, but still not following commands. MRI brain ordered. Continue to avoid any sedative agents. Patient continue to respond very well to IV diuretic, continue gentle diurese X3days as tolerated. Continue daily PST as tolerated. Plan is get patient off the vent for possible SNF placement. Patient remains febrile this am, now cefepine and Vanc, continue IV abx per ID. 04/17: We will repeat procalcitonin per ID, MRI brain pending, SNF placement pending, [facility] plans to start T-piece trials in the morning and will discontinue Yusuf catheter again. Hospitalist Physical - Constitutional Vitals: Temp Pulse Resp BP Pulse Ox 99.4 F 100 H 35 H 122/77 98 04/17/21 12:00 04/17/21 17:00 04/17/21 17:00 04/17/21 17:00 04/17/21 17:00 General appearance: Present: no acute distress, well-nourished, obese, other (Unresponsive) - EENT Eyes: Present: PERRL, EOM intact ENT: clear oral mucosa - Neck Neck: Present: normal ROM - Respiratory Respiratory effort: normal Respiratory: bilateral: diminished - Cardiovascular Rhythm: regular Heart Sounds: Present: S1 & S2. Absent: systolic murmur, diastolic murmur - Extremities Extremities: no ischemia, pulses intact, pulses symmetrical, normal temperature, normal color Extremity abnormal: edema (RUE) Peripheral Pulses: within normal limits - Abdominal General gastrointestinal: soft, non-tender, non-distended, normal bowel sounds - Integumentary Integumentary: Present: warm, dry - Psychiatric Psychiatric: cooperative, agitated - Neurologic Neurologic: CNII-XII intact - Allied Health Allied health notes reviewed: nursing, RT, social work Results - Labs CBC & Chem 7: 04/17/21 04:25 04/17/21 04:25 Labs: Laboratory Last Values WBC 12.5 K/mm3 (4.5-11.0) H 04/17/21 04:25 RBC 3.00 M/mm3 (3.65-5.03) L 04/17/21 04:25 Hgb 8.9 gm/dl (11.8-15.2) L 04/17/21 04:25 Hct 27.2 % (35.5-45.6) L 04/17/21 04:25 MCV 91 fl (84-94) 04/17/21 04:25 MCH 30 pg (28-32) 04/17/21 04:25 MCHC 33 % (32-34) 04/17/21 04:25 RDW 16.0 % (13.2-15.2) H 04/17/21 04:25 Plt Count 401 K/mm3 (140-440) 04/17/21 04:25 Lymph % (Auto) 7.6 % (13.4-35.0) L 03/31/21 13:30 [place] % (Auto) 9.5 % (0.0-7.3) H 03/31/21 13:30 Eos % (Auto) 4.1 % (0.0-4.3) 03/31/21 13:30 Baso % (Auto) 0.5 % (0.0-1.8) 03/31/21 13:30 Lymph # (Auto) 0.6 K/mm3 (1.2-5.4) L 03/31/21 13:30 [place] # (Auto) 0.7 K/mm3 (0.0-0.8) 03/31/21 13:30 Eos # (Auto) 0.3 K/mm3 (0.0-0.4) 03/31/21 13:30 Baso # (Auto) 0.0 K/mm3 (0.0-0.1) 03/31/21 13:30 Add Manual Diff Complete 04/11/21 06:47 Total Counted 100 04/11/21 06:47 Seg Neutrophils % 78.3 % (40.0-70.0) H 03/31/21 13:30 Seg Neuts % (Manual) 76.0 % (40.0-70.0) H 04/11/21 06:47 Band Neutrophils % 2.0 % 04/11/21 06:47 Lymphocytes % (Manual) 10.0 % (13.4-35.0) L 04/11/21 06:47 Reactive Lymphs % (Man) 0 % 04/11/21 06:47 Monocytes % (Manual) 7.0 % (0.0-7.3) 04/11/21 06:47 Eosinophils % (Manual) 4.0 % (0.0-4.3) 04/11/21 06:47 Basophils % (Manual) 0 % (0.0-1.8) 04/11/21 06:47 Metamyelocytes % 1.0 % 04/11/21 06:47 Myelocytes % 0 % 04/11/21 06:47 Promyelocytes % 0 % 04/11/21 06:47 Blast Cells % 0 % 04/11/21 06:47 Nucleated RBC % Not Reportable 04/11/21 06:47 Seg Neutrophils # 5.8 K/mm3 (1.8-7.7) 03/31/21 13:30 Seg Neutrophils # Man 8.3 K/mm3 (1.8-7.7) H 04/11/21 06:47 Band Neutrophils # 0.2 K/mm3 04/11/21 06:47 Lymphocytes # (Manual) 1.1 K/mm3 (1.2-5.4) L 04/11/21 06:47 Abs React Lymphs (Man) 0.0 K/mm3 04/11/21 06:47 Monocytes # (Manual) 0.8 K/mm3 (0.0-0.8) 04/11/21 06:47 Eosinophils # (Manual) 0.4 K/mm3 (0.0-0.4) 04/11/21 06:47 Basophils # (Manual) 0.0 K/mm3 (0.0-0.1) 04/11/21 06:47 Metamyelocytes # 0.1 K/mm3 04/11/21 06:47 Myelocytes # 0.0 K/mm3 04/11/21 06:47 Promyelocytes # 0.0 K/mm3 04/11/21 06:47 Blast Cells # 0.0 K/mm3 04/11/21 06:47 WBC Morphology Not Reportable 04/11/21 06:47 Hypersegmented Neuts Not Reportable 04/11/21 06:47 Hyposegmented Neuts Not Reportable 04/11/21 06:47 Hypogranular Neuts Not Reportable 04/11/21 06:47 Smudge Cells Not Reportable 04/11/21 06:47 Toxic Granulation 1+ 04/11/21 06:47 Toxic Vacuolation Not Reportable 04/11/21 06:47 Dohle Bodies Not Reportable 04/11/21 06:47 Pelger-Huet Anomaly Not Reportable 04/11/21 06:47 Mely Rods Not Reportable 04/11/21 06:47 Platelet Estimate Consistent w auto 04/11/21 06:47 Clumped Platelets Not Reportable 04/11/21 06:47 Plt Clumps, EDTA Not Reportable 04/11/21 06:47 Large Platelets Not Reportable 04/11/21 06:47 Giant Platelets Not Reportable 04/11/21 06:47 Platelet Satelliting Not Reportable 04/11/21 06:47 Plt Morphology Comment Not Reportable 04/11/21 06:47 RBC Morphology Not Reportable 04/11/21 06:47 Dimorphic RBCs Not Reportable 04/11/21 06:47 Polychromasia Not Reportable 04/11/21 06:47 Hypochromasia Not Reportable 04/11/21 06:47 Poikilocytosis Not Reportable 04/11/21 06:47 Anisocytosis 1+ 04/11/21 06:47 Microcytosis Not Reportable 04/11/21 06:47 Macrocytosis Not Reportable 04/11/21 06:47 Spherocytes Not Reportable 04/11/21 06:47 Pappenheimer Bodies Not Reportable 04/11/21 06:47 Sickle Cells Not Reportable 04/11/21 06:47 Target Cells Not Reportable 04/11/21 06:47 Tear Drop Cells Not Reportable 04/11/21 06:47 Ovalocytes Not Reportable 04/11/21 06:47 Helmet Cells Not Reportable 04/11/21 06:47 [place] Bodies Not Reportable 04/11/21 06:47 [place] Rings Not Reportable 04/11/21 06:47 [place] Cells Not Reportable 04/11/21 06:47 Bite Cells Not Reportable 04/11/21 06:47 Crenated Cell Not Reportable 04/11/21 06:47 Elliptocytes Not Reportable 04/11/21 06:47 Acanthocytes (Spur) Not Reportable 04/11/21 06:47 Rouleaux Not Reportable 04/11/21 06:47 Hemoglobin C Crystals Not Reportable 04/11/21 06:47 Schistocytes Not Reportable 04/11/21 06:47 Malaria parasites Not Reportable 04/11/21 06:47 Shaheen Bodies Not Reportable 04/11/21 06:47 Hem Pathologist Commnt No 04/11/21 06:47 PT 13.4 Sec. (12.2-14.9) 04/11/21 18:17 INR 0.92 (0.87-1.13) 04/11/21 18:17 APTT 61.1 Sec. (24.2-36.6) H* 04/11/21 18:17 D-Dimer 1359.12 ng/mlDDU (0-234) H 03/17/21 04:40 Heparin Anti-Xa Level 1.03 U.I./ml (0.3-0.7) H 04/12/21 05:11 ABG pH 7.487 pH Units (7.350-7.450) H 04/16/21 04:55 POC ABG pCO2 57.4 mmHg (32.0-48.0) H 04/06/21 04:49 ABG pCO2 54.8 mm Hg 04/16/21 04:55 POC ABG pO2 55.1 mmHg (83-108) L 04/06/21 04:49 ABG pO2 75.4 mm Hg (80.0-90.0) L 04/16/21 04:55 POC ABG HCO3 36.2 04/06/21 04:49 ABG HCO3 40.6 mmol/L (20.0-26.0) H 04/16/21 04:55 ABG O2 Saturation 97.2 % (95.0-99.0) 04/16/21 04:55 ABG O2 Content 12.0 (0.0-44) 04/16/21 04:55 POC ABG Base Excess 10.0 04/06/21 04:49 ABG Base Excess 15.3 mmol/L (-2.0-3.0) H 04/16/21 04:55 ABG Hemoglobin 8.9 gm/dl (14.0-18.0) L 04/16/21 04:55 ABG Oxyhemoglobin 87.5 (94-98) L 04/06/21 04:49 ABG Carboxyhemoglobin 1.7 % (0.0-5.0) 04/16/21 04:55 ABG Methemoglobin 0.6 % (0.0-1.5) 04/16/21 04:55 ABG Sodium 134.2 mmol/L (136.0-145.0) L 03/12/21 21:54 ABG Potassium 4.9 mmol/L (3.40-4.50) H 03/12/21 21:54 ABG Chloride 99.0 mmol/L (98-107) 03/12/21 21:54 ABG Glucose 306 mg/dL (65-95) H 03/12/21 21:54 Oxyhemoglobin 95.0 % (95.0-99.0) 04/16/21 04:55 Carboxyhemoglobin 0.8 (0.5-1.5) 04/06/21 04:49 FiO2 40 % 04/16/21 04:55 FiO2 % 40.0 04/06/21 04:49 Sodium 136 mmol/L (137-145) L 04/17/21 04:25 Potassium 3.8 mmol/L (3.6-5.0) 04/17/21 04:25 Chloride 92.4 mmol/L (98-107) L 04/17/21 04:25 Carbon Dioxide 36 mmol/L (22-30) H 04/17/21 04:25 Anion Gap 11 mmol/L 04/17/21 04:25 BUN 23 mg/dL (9-20) H 04/17/21 04:25 Creatinine 0.4 mg/dL (0.8-1.3) L 04/17/21 04:25 Estimated GFR > 60 ml/min 04/17/21 04:25 BUN/Creatinine Ratio 58 % 04/17/21 04:25 Glucose 145 mg/dL (75-100) H 04/17/21 04:25 POC Glucose 137 mg/dL (70-105) H 04/17/21 16:50 Lactic Acid 1.90 mmol/L (0.7-2.0) 03/08/21 23:51 Calcium 8.9 mg/dL (8.4-10.2) 04/17/21 04:25 Phosphorus 3.60 mg/dL (2.5-4.5) 04/17/21 04:25 Magnesium 2.30 mg/dL (1.7-2.3) 04/17/21 04:25 Ferritin 976.4 ng/mL (30.0-300.0) H 03/15/21 04:00 Total Bilirubin 0.20 mg/dL (0.1-1.2) 03/12/21 08:03 AST 10 units/L (5-40) 03/12/21 08:03 ALT 16 units/L (7-56) 03/12/21 08:03 Alkaline Phosphatase 77 units/L (35-129) 03/12/21 08:03 Lactate Dehydrogenase 630 units/L (91-180) H 03/15/21 06:06 C-Reactive Protein 0.40 mg/dL (0.00-1.30) 03/17/21 04:40 NT-Pro-B Natriuret Pep 1053 pg/mL (0-900) H 03/08/21 20:24 Total Protein 6.0 g/dL (6.3-8.2) L 03/12/21 08:03 Albumin 2.9 g/dL (3.9-5) L 03/12/21 08:03 Albumin/Globulin Ratio 0.9 % 03/12/21 08:03 Triglycerides 305 mg/dL (2-149) H 03/22/21 07:26 Procalcitonin 0.17 ng/mL (<0.15) 04/01/21 07:16 Arterial Blood Glucose 306 mg/dL (65-95) H 03/12/21 21:54 Arterial Blood Ionized Calcium 5.0 mg/dL (4.6-5.3) 03/12/21 21:54 Urine Color Yellow (Yellow) 04/14/21 Unknown Urine Turbidity Clear (Clear) 04/14/21 Unknown Urine pH 8.0 (5.0-7.0) H 04/14/21 Unknown Ur Specific [place] 1.009 (1.003-1.030) 04/14/21 Unknown Urine Protein <15 mg/dl mg/dL (Negative) 04/14/21 Unknown Urine Glucose (UA) Neg mg/dL (Negative) 04/14/21 Unknown Urine Ketones Neg mg/dL (Negative) 04/14/21 Unknown Urine Blood Neg (Negative) 04/14/21 Unknown Urine Nitrite Neg (Negative) 04/14/21 Unknown Urine Bilirubin Neg (Negative) 04/14/21 Unknown Urine Urobilinogen 2.0 mg/dL (<2.0) 04/14/21 Unknown Ur Leukocyte Esterase Neg (Negative) 04/14/21 Unknown Urine WBC (Auto) < 1.0 /HPF (0.0-6.0) 04/14/21 Unknown Urine RBC (Auto) < 1.0 /HPF (0.0-6.0) 04/14/21 Unknown Urine Bacteria (Auto) 1+ /HPF (Negative) 03/09/21 04:10 Urine Mucus Few /HPF 03/09/21 04:10 Vancomycin Trough 16.8 ug/mL (5.0-20.0) 04/16/21 14:30 Coronavirus (PCR) Positive (Negative) A 03/09/21 08:00 Miscellaneous Test Flexitest 1 03/16/21 13:14 Microbiology: Microbiology 04/14/21 14:13 Urine,Catheterized - Straight Catheter Urine Culture - Final NO GROWTH AFTER 48 HOURS 04/14/21 08:26 Peripheral/Venous Blood Culture - Preliminary NO GROWTH AFTER 72 HOURS 04/14/21 08:26 Peripheral/Venous Blood Culture - Preliminary NO GROWTH AFTER 72 HOURS 04/15/21 13:55 Bronchial Washings - Right Middle Lobe Respiratory Culture - Preliminary Yusuf/IV: Voiding Method Condom Catheter Active Medications - Current Medications Current Medications: Generic Name Dose Route Start Last Admin Trade Name Freq PRN Reason Stop Dose Admin Acetaminophen 650 mg 03/09/21 01:26 04/16/21 04:56 Acetaminophen 325 Mg Tab PO 650 mg Q4H PRN Administration Pain MILD(1-3)/Fever >100.5/RAYO Albuterol 2.5 mg 03/09/21 01:26 03/18/21 21:06 Albuterol 2.5 Mg/3 Ml Nebu IH 2.5 mg Q4HRT PRN Administration Shortness Of Breath Amlodipine Besylate 10 mg 04/11/21 10:00 04/17/21 09:14 Amlodipine 5 Mg Tab PO 10 mg QDAY BLANCA Administration Apixaban 10 mg 04/11/21 22:00 04/17/21 09:15 Apixaban 5 Mg Tab PO 04/18/21 10:01 10 mg Q12HR BLANCA Administration Protocol Apixaban 5 mg 04/18/21 22:00 Apixaban 5 Mg Tab PO Q12HR BLANCA Protocol Arformoterol Tartrate 15 mcg 03/11/21 20:00 04/17/21 07:47 Arformoterol 15 Mcg/2 Ml Nebu IH 15 mcg Q12HRT BLANCA Administration Bisacodyl 10 mg 03/26/21 13:43 03/26/21 13:51 Bisacodyl 10 Mg Rect Supp NM 10 mg QDAY PRN Administration Constipation Budesonide 0.5 mg 04/06/21 20:00 04/17/21 07:47 Budesonide 0.5 Mg/2 Ml Nebu IH 0.5 mg Q12HRT BLANCA Administration Dextrose 0 ml 03/20/21 10:52 Dextrose 10% *Hypoglycemia IV PRN PRN Hypoglycemia Doxazosin Mesylate 1 mg 04/05/21 22:00 04/17/21 09:15 Doxazosin 1 Mg Tab PO 1 mg BID BLANCA Administration Famotidine 20 mg 03/12/21 22:00 04/17/21 09:15 Famotidine 20 Mg Tab FEEDTUBE 20 mg BID BLANCA Administration Fentanyl 50 mcg 04/14/21 11:00 04/14/21 21:37 Fentanyl 100 Mcg/2 Ml Inj IV 50 mcg Q2HR PRN Administration COPT greater than 3 Furosemide 40 mg 04/16/21 10:00 04/17/21 09:16 Furosemide 40 Mg/4 Ml Inj IV 04/19/21 09:59 40 mg QDAY BLANCA Administration Hydralazine HCl 50 mg 03/23/21 14:26 04/17/21 13:13 Hydralazine 25 Mg Tab PO 50 mg Q8HR [facility]AN[facility] Administration Cefepime HCl 2 gm in 100 mls @ 200 mls/hr 04/14/21 15:00 04/17/21 13:13 Cefepime/Ns 2 Gm/100 Ml IV 200 mls/hr Q8HR [facility]AN[facility] Administration Protocol Vancomycin HCl 1,750 mg/ 535 mls @ 333 mls/hr 04/15/21 15:00 04/17/21 15:50 Sodium Chloride IV 333 mls/hr Q12H [facility]AN[facility] Administration Protocol Insulin Glargine 18 units 04/07/21 22:00 04/16/21 21:18 Insulin Glargine 100 Units/Ml SUB-Q 18 units QHS BLANCA Administration Insulin Human Lispro 0 unit 03/11/21 18:00 04/17/21 17:16 Insulin Lispro 100 Unit/Ml SUB-Q Not Given Q6HR [facility] Protocol Metoprolol Tartrate 12.5 mg 03/21/21 22:00 04/17/21 09:14 Metoprolol Tartrate 25 Mg Tab PO 12.5 mg BID BLANCA Administration Ondansetron HCl 4 mg 03/09/21 01:26 04/13/21 16:17 Ondansetron 4 Mg/2 Ml Inj IV 4 mg Q8H PRN Administration Nausea And Vomiting Oxycodone HCl 5 mg 04/13/21 12:34 04/14/21 18:09 Oxycodone 5 Mg Tab PO 5 mg Q6HR PRN Administration Pain, Moderate (4-6) Phenyleph/Shark Oil/Min Oil/Petrol 1 applic 03/22/21 17:35 04/06/21 04:04 Pe/Mo/Pet,Wh 10 Applic/28 Gm Tube NM 1 applic Q6HR PRN Administration Hemorrhoids Polyethylene Glycol 17 gm 04/02/21 10:00 04/17/21 09:16 Polyethylene Glycol 3350 17 Gm Powder FEEDTUBE Not Given QDAY [facility] Senna/Docusate Sodium 2 tab 04/02/21 10:00 04/17/21 09:16 Sennosides/Docusate Sodium 8.6/50 Mg Tab FEEDTUBE Not Given BID BLANCA Sodium Chloride 10 ml 03/09/21 10:00 04/17/21 09:15 Sodium Chloride 0.9% 10 Ml Flush Syringe IV 10 ml BID BLANCA Administration Sodium Chloride 10 ml 03/09/21 01:26 04/10/21 21:07 Sodium Chloride 0.9% 10 Ml Flush Syringe IV 10 ml PRN PRN Administration LINE FLUSH Sodium Chloride 10 ml 03/20/21 09:48 Sodium Chloride 0.9% 50 Ml Ivpb IV PRN PRN FLUSH Nutrition/Malnutrition Assess - Dietary Evaluation Nutrition/Malnutrition Findings: Nutrition Notes Start: 03/09/21 08:49 Freq: Status: Active Protocol: Document 04/14/21 14:43 NHALL (Rec: 04/14/21 14:45 NHALL [email or web address]) Nutrition Notes Initial or Follow up Reassessment Current Diagnosis Diabetes,Sepsis,Hypertension, Respiratory Failure Other Pertinent Diagnosis COVID-19, Bilateral Pneumonia. Current Diet TF-Glucerna 1.2 at 70 ml/hr Labs/Tests reviewed Pertinent Medications reviewed Height 5 ft 11 in Weight 122.4 kg [place] Body Weight (kg) 78.18 BMI 37.6 Weight Status Obese Subjective/Other Information Pt remains on vent support. Spoke with RN via phone (14:18 ); pt continues to tolerate TF at goal rate. Percent of energy/protein needs met: 82% energy 78% pro Burn Absent Trauma Absent #1 Nutrition Diagnosis Inadequate oral intake Diagnosis Progress(for reassessment Continues documentation) Is patient on ventilator? Yes Is Patient Ambulatory and/or Out of Bed No REE-([facility]-confined to bed) [phone] Calculation Used for Recommendations 70-80% energy needs Additional Notes Energy needs: 0029-0772 kcal/ day Pro needs 1.3g/kg adjBW: 130g/ day Fluid needs 1ml/kcal Nutrition Intervention Nutrition Support: Continue Glucerna 1.2 at 70ml/ hr with 110ml water flush q4h. Kcal 2,016 Protein (gm) 101 Carbohydrates (gm) 192 Fat (gm) 101 Fluid (mL) 1,352 Fiber (gm) 27 Goal #1 TF tolerance Goal #2 TF to meet at least 75% energy and pro needs Follow-Up By: 04/21/21 Additional Comments F/U: stable TF, vent status, wt
[2021-04-17] MEDS: INSULIN GLARGINE 100 UNITS/ML SUB-Q SCH (21:23)
[2021-04-18] MEDS: INSULIN LISPRO 100 UNIT/ML SUB-Q SCH ×4 (00:47→19:11)
[2021-04-18] MEDS: ACETAMINOPHEN 325 MG TAB PO PRN (00:48)
[2021-04-18] MEDS: VANCOMYCIN 1,750 MG in SODIUM CHLORIDE 0.9% 500 ML 500 ML IV SCH ×2 (03:26→16:00)
[2021-04-18 05:08] LABS: Hematocrit 26.3 % (35.5-45.6); Hemoglobin 8.5 gm/dl (11.8-15.2); Mean Corpuscular HGB Conc 33 % (32-34); Mean Corpuscular Volume 90 fl (84-94); Platelet Count 420 K/mm3 (140-440); Red Blood Count 2.92 M/mm3 (3.65-5.03); Red Cell Distribution Width 16.1 % (13.2-15.2)
[2021-04-18] MEDS: hydrALAZINE 25 MG TAB PO SCH ×3 (05:09→21:28)
[2021-04-18] MEDS: CEFEPIME/NS 2 GM/100 ML 2 GM/100 ML BAG IV SCH ×3 (05:10→21:28)
[2021-04-18 05:30] LABS: Blood Urea Nitrogen 21 mg/dL (9-20); Calcium 8.8 mg/dL (8.4-10.2); Hemolysis Index 1
[2021-04-18 05:37] LABS: BUN/Creatinine Ratio 70
[2021-04-18] MEDS: ARFORMOTEROL 15 MCG/2 ML NEBU IH SCH ×2 (07:43→19:46)
[2021-04-18] MEDS: BUDESONIDE 0.5 MG/2 ML NEBU IH SCH ×2 (07:44→19:46)
[2021-04-18] MEDS: FUROSEMIDE 40 MG/4 ML INJ IV SCH (09:10)
[2021-04-18] MEDS: SENNOSIDES/DOCUSATE SODIUM 8.6/50 MG TAB FEEDTUBE SCH ×2 (09:44→21:31)
[2021-04-18] MEDS: amLODIPine 5 MG TAB PO SCH (09:45)
[2021-04-18] MEDS: APIXABAN 5 MG TAB PO SCH ×2 (09:45→21:30)
[2021-04-18] MEDS: FAMOTIDINE 20 MG TAB FEEDTUBE SCH ×2 (09:45→21:31)
[2021-04-18] MEDS: DOXAZOSIN 1 MG TAB PO SCH ×2 (09:45→21:30)
[2021-04-18] MEDS: METOPROLOL TARTRATE 25 MG TAB PO SCH ×2 (09:45→21:31)
[2021-04-18] MEDS: POLYETHYLENE GLYCOL 3350 17 GM POWDER FEEDTUBE SCH (09:46)
--- NOTE | 2021-04-18 09:47 | Progress Note ---
Assessment and Plan Acute hypoxemic respiratory failure, on continuous noninvasive ventilation COVID-19 infection Bilateral pneumonia History of diabetes Obesity Hypertension Leukocytosis Possible venous thromboembolic phenomena with significantly elevated D-dimers DM II Elevated serum inflammatory markers to include CRP levels, ferritin and LDH - advance t-piece trials as tolerated; shoot for 4+ hours today - follow brain MRI - Good catheter removed; bladder scans prn - continue LTAC evaluation - continue care as below otherwise; - continue Daily SAT and SBT assessment as tolerated - continue to wean supplemental oxygen for target O2 sat's > 90% acutely - VAP bundle addressed - continue lung protective strategies - continue bronchodilators with routiune trach care and pulmonary hygiene per RT - wean per pulmonary driven protocols otherwise - continue accuchecks with glycemic control per SSI (While critically ill target blood glucose of 140-180 mg/dL; avoid hypoglycemia) - sedation prn for target RASS 0 to -1 - avoid nephrotoxins, renally dose all medications - avoid benzodiazepine's, reduce the possibility of delirium - AB's per ID rec's - prn analgesia per pain score - Maintenance of sleep-wake cycle, avoid delirium - G.I. & VTE prophylaxis - PT/OT/ROM exercises - mobility protocols for pressure ulcer prophylaxis - Monitor hemodynamics closely - continue other care per attending / other consultants - discharge planning ongoing concurrently COVID SPECIFIC INTERVENTIONS - Remdesivir as per ID/Pulmonary developed protocols (received) - continue systemic steroids for severe COVID-19 infection empirically (Decadron) - follow repeat COVID tests results - zinc and vitamin C supplementation - Monitor inflammatory markers per facility protocol - ferritin, Ddimer, CRP - therapeutic anticoagulation per system Protocol based on d-dimer and clinical considerations (treatment dose) - contact and airborne isolation discontinued .... Re-evaluate in am & prn CONDITION: CRITICAL PROGNOSIS: GUARDED CODE STATUS: FULL CODE The high probability of a clinically significant, sudden or life-threatening deterioration of the [respiratory, cardiovascular & hematologic] system(s) required my full and direct attention, intervention and personal management. The aggregate critical care time was [32] minutes without overlap. Time includes spent on; [x] Data Review and interpretation [x] Patient assessment and monitoring of vital signs [x] Documentation [x] Medication orders and management Subjective Date of service: 04/18/21 Principal diagnosis: COVID-19 infection; DM II; Bilateral pneumonia; Obesity; HTN Interval history: Patient is seen today for: Acute hypoxemic respiratory failure; COVID-19 infection; DM II; Bilateral pneumonia; Obesity; HTN Seen and examined at bedside; 24hour events reviewed; nursing and respiratory care staff consulted; no adverse overnight events reported to me; resting in bed; placed on t-piece and tolerating well so far; ABG acceptable; to go for MRI later today; no N/V/F/C Objective Vital Signs - 12hr 04/17/21 04/17/21 04/17/21 22:01 22:31 23:00 Temperature Pulse Rate 113 H 112 H Pulse Rate [ Bilateral Throughout] Respiratory 38 H 37 H Rate Respiratory Rate [Bilateral Throughout] Blood Pressure 112/70 116/74 120/69 O2 Sat by Pulse 99 99 98 Oximetry O2 Sat by Pulse Oximetry [ Assessment] 04/17/21 04/17/21 04/18/21 23:27 23:31 00:00 Temperature 100.8 F H Pulse Rate 113 H 113 H Pulse Rate [ Bilateral Throughout] Respiratory 26 H 21 Rate Respiratory Rate [Bilateral Throughout] Blood Pressure 120/69 120/69 O2 Sat by Pulse 98 98 Oximetry O2 Sat by Pulse Oximetry [ Assessment] 04/18/21 04/18/21 04/18/21 00:01 00:02 00:05 Temperature 100.8 F H Pulse Rate 113 H 111 H Pulse Rate [ Bilateral Throughout] Respiratory 26 H Rate Respiratory Rate [Bilateral Throughout] Blood Pressure 115/60 120/69 O2 Sat by Pulse 96 97 Oximetry O2 Sat by Pulse Oximetry [ Assessment] 04/18/21 04/18/21 04/18/21 00:31 00:48 01:01 Temperature Pulse Rate 112 H 110 H Pulse Rate [ Bilateral Throughout] Respiratory 22 21 28 H Rate Respiratory Rate [Bilateral Throughout] Blood Pressure 115/60 122/63 O2 Sat by Pulse 97 98 Oximetry O2 Sat by Pulse Oximetry [ Assessment] 04/18/21 04/18/21 04/18/21 01:31 01:48 02:00 Temperature Pulse Rate 106 H 103 H Pulse Rate [ Bilateral Throughout] Respiratory 24 21 27 H Rate Respiratory Rate [Bilateral Throughout] Blood Pressure 122/63 123/72 O2 Sat by Pulse 99 99 Oximetry O2 Sat by Pulse Oximetry [ Assessment] 04/18/21 04/18/21 04/18/21 02:31 03:00 03:18 Temperature 99.3 F Pulse Rate 101 H 100 H Pulse Rate [ Bilateral Throughout] Respiratory 21 30 H Rate Respiratory Rate [Bilateral Throughout] Blood Pressure 123/72 117/72 O2 Sat by Pulse 98 97 Oximetry O2 Sat by Pulse Oximetry [ Assessment] 04/18/21 04/18/21 04/18/21 03:31 04:00 04:06 Temperature Pulse Rate 99 H 99 H 97 H Pulse Rate [ Bilateral Throughout] Respiratory 21 25 H Rate Respiratory Rate [Bilateral Throughout] Blood Pressure 117/72 125/62 125/62 O2 Sat by Pulse 98 100 98 Oximetry O2 Sat by Pulse Oximetry [ Assessment] 04/18/21 04/18/21 04/18/21 04:15 04:31 05:00 Temperature Pulse Rate 97 H 98 H 97 H Pulse Rate [ Bilateral Throughout] Respiratory 31 H 31 H Rate Respiratory Rate [Bilateral Throughout] Blood Pressure 125/62 129/75 O2 Sat by Pulse 97 98 99 Oximetry O2 Sat by Pulse 99 Oximetry [ Assessment] 04/18/21 04/18/21 04/18/21 05:09 05:31 06:00 Temperature Pulse Rate 94 H 90 89 Pulse Rate [ Bilateral Throughout] Respiratory 27 H 27 H Rate Respiratory Rate [Bilateral Throughout] Blood Pressure 129/75 129/75 114/68 O2 Sat by Pulse 99 98 Oximetry O2 Sat by Pulse Oximetry [ Assessment] 04/18/21 04/18/21 04/18/21 06:31 07:01 07:31 Temperature Pulse Rate 93 H 94 H 95 H Pulse Rate [ Bilateral Throughout] Respiratory 31 H 29 H 29 H Rate Respiratory Rate [Bilateral Throughout] Blood Pressure 114/68 121/73 121/73 O2 Sat by Pulse 99 100 100 Oximetry O2 Sat by Pulse Oximetry [ Assessment] 04/18/21 04/18/21 04/18/21 07:36 07:44 08:00 Temperature 99.8 F H Pulse Rate 91 H 90 Pulse Rate [ 92 H Bilateral Throughout] Respiratory 30 H 31 H Rate Respiratory 28 H Rate [Bilateral Throughout] Blood Pressure 121/73 126/69 O2 Sat by Pulse 100 100 Oximetry O2 Sat by Pulse 100 Oximetry [ Assessment] 04/18/21 04/18/21 04/18/21 08:31 09:00 09:31 Temperature Pulse Rate 93 H 91 H 96 H Pulse Rate [ Bilateral Throughout] Respiratory 31 H 31 H 32 H Rate Respiratory Rate [Bilateral Throughout] Blood Pressure 126/69 126/71 126/71 O2 Sat by Pulse 100 100 97 Oximetry O2 Sat by Pulse Oximetry [ Assessment] Constitutional: no acute distress, other (elderly obese male with mildly increased respiratory effort at rest) Eyes: non-icteric, other ENT: oropharynx moist, other (+ midline tracheostomy) Neck: supple, no lymphadenopathy, lymphadenopathy, no JVD, other (large circumference) Effort: mildly labored Ascultation: Bilateral: diminished breath sounds, rhonchi Percussion: Bilateral: not dull Cardiovascular: regular rate and rhythm, other (tachycardia, S1,S2) Gastrointestinal: normoactive bowel sounds, soft, non-tender, non-distended (protuberant), other (Good in place) Integumentary: normal Extremities: no cyanosis, pulses normal, no ischemia or petechiae, edema (upper extremities), other Neurologic: pupils equal and round, other (follows simple prompts) Psychiatric: other (unable to assess re: AMS) CBC and BMP: 04/18/21 04:20 04/18/21 04:20 ABG, PT/INR, D-dimer: ABG ABG pH 7.487 pH Units (7.350-7.450) H 04/16/21 04:55 POC ABG pCO2 57.4 mmHg (32.0-48.0) H 04/06/21 04:49 ABG pCO2 54.8 mm Hg 04/16/21 04:55 POC ABG pO2 55.1 mmHg (83-108) L 04/06/21 04:49 ABG pO2 75.4 mm Hg (80.0-90.0) L 04/16/21 04:55 POC ABG HCO3 36.2 04/06/21 04:49 ABG O2 Saturation 97.2 % (95.0-99.0) 04/16/21 04:55 PT/INR, D-dimer PT 13.4 Sec. (12.2-14.9) 04/11/21 18:17 INR 0.92 (0.87-1.13) 04/11/21 18:17 D-Dimer 1359.12 ng/mlDDU (0-234) H 03/17/21 04:40 Abnormal lab findings: Abnormal Labs 03/08/21 03/08/21 03/08/21 20:24 20:24 20:24 WBC 22.6 H RBC 5.44 H Hgb 15.7 H Hct 49.2 H MCV MCHC RDW Plt Count Lymph % (Auto) [place] % (Auto) Lymph # (Auto) [place] # (Auto) Seg Neutrophils % Seg Neuts % (Manual) 83.0 H Lymphocytes % (Manual) 9.0 L Monocytes % (Manual) 8.0 H Nucleated RBC % Seg Neutrophils # Seg Neutrophils # Man 18.8 H Lymphocytes # (Manual) Monocytes # (Manual) 1.8 H PT 16.1 H INR 1.17 H APTT D-Dimer > 78974 H Heparin Anti-Xa Level ABG pH POC ABG pCO2 POC ABG pO2 ABG pO2 ABG HCO3 ABG O2 Saturation ABG Base Excess ABG Hemoglobin ABG Oxyhemoglobin ABG Sodium ABG Potassium ABG Glucose Oxyhemoglobin Sodium 136 L Potassium Chloride 93.9 L Carbon Dioxide BUN 29 H Creatinine Glucose 208 H POC Glucose Lactic Acid Calcium Phosphorus Magnesium Ferritin Lactate Dehydrogenase 624 H C-Reactive Protein 18.00 H NT-Pro-B Natriuret Pep 1053 H Total Protein Albumin Triglycerides Arterial Blood Glucose Urine pH Ur Specific [place] Coronavirus (PCR) 03/08/21 03/08/21 03/09/21 20:24 20:24 04:10 WBC RBC Hgb Hct MCV MCHC RDW Plt Count Lymph % (Auto) [place] % (Auto) Lymph # (Auto) [place] # (Auto) Seg Neutrophils % Seg Neuts % (Manual) Lymphocytes % (Manual) Monocytes % (Manual) Nucleated RBC % Seg Neutrophils # Seg Neutrophils # Man Lymphocytes # (Manual) Monocytes # (Manual) PT INR APTT D-Dimer Heparin Anti-Xa Level ABG pH POC ABG pCO2 POC ABG pO2 ABG pO2 ABG HCO3 ABG O2 Saturation ABG Base Excess ABG Hemoglobin ABG Oxyhemoglobin ABG Sodium ABG Potassium ABG Glucose Oxyhemoglobin Sodium Potassium Chloride Carbon Dioxide BUN Creatinine Glucose POC Glucose Lactic Acid 2.10 H* Calcium Phosphorus Magnesium Ferritin 877.5 H Lactate Dehydrogenase C-Reactive Protein NT-Pro-B Natriuret Pep Total Protein Albumin Triglycerides Arterial Blood Glucose Urine pH Ur Specific [place] 1.041 H Coronavirus (PCR) 03/09/21 03/09/21 03/09/21 07:46 08:00 13:01 WBC RBC Hgb Hct MCV MCHC RDW Plt Count Lymph % (Auto) [place] % (Auto) Lymph # (Auto) [place] # (Auto) Seg Neutrophils % Seg Neuts % (Manual) Lymphocytes % (Manual) Monocytes % (Manual) Nucleated RBC % Seg Neutrophils # Seg Neutrophils # Man Lymphocytes # (Manual) Monocytes # (Manual) PT INR APTT D-Dimer Heparin Anti-Xa Level ABG pH POC ABG pCO2 POC ABG pO2 ABG pO2 ABG HCO3 ABG O2 Saturation ABG Base Excess ABG Hemoglobin ABG Oxyhemoglobin ABG Sodium ABG Potassium ABG Glucose Oxyhemoglobin Sodium Potassium Chloride Carbon Dioxide BUN Creatinine Glucose POC Glucose 191 H 182 H Lactic Acid Calcium Phosphorus Magnesium Ferritin Lactate Dehydrogenase C-Reactive Protein NT-Pro-B Natriuret Pep Total Protein Albumin Triglycerides Arterial Blood Glucose Urine pH Ur Specific [place] Coronavirus (PCR) Positive A 03/09/21 03/09/21 03/09/21 15:19 17:48 18:10 WBC RBC Hgb Hct MCV MCHC RDW Plt Count Lymph % (Auto) [place] % (Auto) Lymph # (Auto) [place] # (Auto) Seg Neutrophils % Seg Neuts % (Manual) Lymphocytes % (Manual) Monocytes % (Manual) Nucleated RBC % Seg Neutrophils # Seg Neutrophils # Man Lymphocytes # (Manual) Monocytes # (Manual) PT INR APTT D-Dimer Heparin Anti-Xa Level ABG pH POC ABG pCO2 POC ABG pO2 ABG pO2 47.3 L ABG HCO3 26.3 H ABG O2 Saturation 83.7 L ABG Base Excess ABG Hemoglobin ABG Oxyhemoglobin ABG Sodium ABG Potassium ABG Glucose Oxyhemoglobin 82.1 L Sodium Potassium Chloride Carbon Dioxide BUN 29 H Creatinine Glucose 214 H POC Glucose 194 H Lactic Acid Calcium Phosphorus Magnesium Ferritin Lactate Dehydrogenase C-Reactive Protein NT-Pro-B Natriuret Pep Total Protein Albumin 3.4 L Triglycerides Arterial Blood Glucose Urine pH Ur Specific [place] Coronavirus (PCR) 03/09/21 03/10/21 03/10/21 20:40 04:29 04:29 WBC 20.6 H RBC 5.07 H Hgb Hct 46.2 H MCV MCHC RDW Plt Count Lymph % (Auto) [place] % (Auto) Lymph # (Auto) [place] # (Auto) Seg Neutrophils % Seg Neuts % (Manual) 94.0 H Lymphocytes % (Manual) 1.0 L Monocytes % (Manual) Nucleated RBC % 3.0 H Seg Neutrophils # Seg Neutrophils # Man 19.4 H Lymphocytes # (Manual) 0.2 L Monocytes # (Manual) 1.0 H PT INR APTT D-Dimer Heparin Anti-Xa Level ABG pH POC ABG pCO2 POC ABG pO2 ABG pO2 ABG HCO3 ABG O2 Saturation ABG Base Excess ABG Hemoglobin ABG Oxyhemoglobin ABG Sodium ABG Potassium ABG Glucose Oxyhemoglobin Sodium Potassium Chloride Carbon Dioxide BUN 29 H Creatinine Glucose 188 H POC Glucose 176 H Lactic Acid Calcium Phosphorus Magnesium Ferritin Lactate Dehydrogenase C-Reactive Protein NT-Pro-B Natriuret Pep Total Protein Albumin 3.3 L Triglycerides Arterial Blood Glucose Urine pH Ur Specific [place] Coronavirus (PCR) 03/10/21 03/10/21 03/10/21 05:22 10:27 15:25 WBC RBC Hgb Hct MCV MCHC RDW Plt Count Lymph % (Auto) [place] % (Auto) Lymph # (Auto) [place] # (Auto) Seg Neutrophils % Seg Neuts % (Manual) Lymphocytes % (Manual) Monocytes % (Manual) Nucleated RBC % Seg Neutrophils # Seg Neutrophils # Man Lymphocytes # (Manual) Monocytes # (Manual) PT INR APTT D-Dimer Heparin Anti-Xa Level ABG pH 7.488 H 7.488 H POC ABG pCO2 POC ABG pO2 ABG pO2 47.7 L 50.5 L ABG HCO3 ABG O2 Saturation 86.2 L 87.9 L ABG Base Excess ABG Hemoglobin ABG Oxyhemoglobin ABG Sodium ABG Potassium ABG Glucose Oxyhemoglobin 84.6 L 86.2 L Sodium Potassium Chloride Carbon Dioxide BUN Creatinine Glucose POC Glucose 155 H Lactic Acid Calcium Phosphorus Magnesium Ferritin Lactate Dehydrogenase C-Reactive Protein NT-Pro-B Natriuret Pep Total Protein Albumin Triglycerides Arterial Blood Glucose Urine pH Ur Specific [place] Coronavirus (PCR) 03/10/21 03/10/21 03/11/21 18:10 18:55 00:07 WBC RBC Hgb Hct MCV MCHC RDW Plt Count Lymph % (Auto) [place] % (Auto) Lymph # (Auto) [place] # (Auto) Seg Neutrophils % Seg Neuts % (Manual) Lymphocytes % (Manual) Monocytes % (Manual) Nucleated RBC % Seg Neutrophils # Seg Neutrophils # Man Lymphocytes # (Manual) Monocytes # (Manual) PT INR APTT D-Dimer Heparin Anti-Xa Level ABG pH 7.343 L POC ABG pCO2 POC ABG pO2 ABG pO2 60.4 L ABG HCO3 27.9 H ABG O2 Saturation 88.7 L ABG Base Excess ABG Hemoglobin ABG Oxyhemoglobin ABG Sodium ABG Potassium ABG Glucose Oxyhemoglobin 86.9 L Sodium Potassium Chloride Carbon Dioxide BUN Creatinine Glucose POC Glucose 187 H 139 H Lactic Acid Calcium Phosphorus Magnesium Ferritin Lactate Dehydrogenase C-Reactive Protein NT-Pro-B Natriuret Pep Total Protein Albumin Triglycerides Arterial Blood Glucose Urine pH Ur Specific [place] Coronavirus (PCR) 03/11/21 03/11/21 03/11/21 02:09 04:28 08:06 WBC RBC Hgb Hct MCV MCHC RDW Plt Count Lymph % (Auto) [place] % (Auto) Lymph # (Auto) [place] # (Auto) Seg Neutrophils % Seg Neuts % (Manual) Lymphocytes % (Manual) Monocytes % (Manual) Nucleated RBC % Seg Neutrophils # Seg Neutrophils # Man Lymphocytes # (Manual) Monocytes # (Manual) PT INR APTT D-Dimer Heparin Anti-Xa Level ABG pH 7.277 L POC ABG pCO2 55.9 H POC ABG pO2 54.4 L ABG pO2 ABG HCO3 ABG O2 Saturation ABG Base Excess ABG Hemoglobin ABG Oxyhemoglobin 83.0 L ABG Sodium ABG Potassium 4.8 H ABG Glucose 180 H Oxyhemoglobin Sodium Potassium Chloride Carbon Dioxide BUN 38 H Creatinine Glucose 249 H POC Glucose 278 H Lactic Acid Calcium Phosphorus Magnesium Ferritin Lactate Dehydrogenase C-Reactive Protein NT-Pro-B Natriuret Pep Total Protein Albumin 3.2 L Triglycerides Arterial Blood Glucose 180 H Urine pH Ur Specific [place] Coronavirus (PCR) 03/11/21 03/11/21 03/11/21 11:29 15:06 15:48 WBC RBC Hgb Hct MCV MCHC RDW Plt Count Lymph % (Auto) [place] % (Auto) Lymph # (Auto) [place] # (Auto) Seg Neutrophils % Seg Neuts % (Manual) Lymphocytes % (Manual) Monocytes % (Manual) Nucleated RBC % Seg Neutrophils # Seg Neutrophils # Man Lymphocytes # (Manual) Monocytes # (Manual) PT INR APTT D-Dimer Heparin Anti-Xa Level ABG pH 7.260 L POC ABG pCO2 POC ABG pO2 ABG pO2 53.5 L ABG HCO3 29.5 H ABG O2 Saturation 84.0 L ABG Base Excess ABG Hemoglobin ABG Oxyhemoglobin ABG Sodium ABG Potassium ABG Glucose Oxyhemoglobin 82.3 L Sodium Potassium Chloride Carbon Dioxide BUN Creatinine Glucose POC Glucose 288 H 295 H Lactic Acid Calcium Phosphorus Magnesium Ferritin Lactate Dehydrogenase C-Reactive Protein NT-Pro-B Natriuret Pep Total Protein Albumin Triglycerides Arterial Blood Glucose Urine pH Ur Specific [place] Coronavirus (PCR) 03/12/21 03/12/21 03/12/21 00:01 05:24 08:03 WBC RBC Hgb Hct MCV MCHC RDW Plt Count Lymph % (Auto) [place] % (Auto) Lymph # (Auto) [place] # (Auto) Seg Neutrophils % Seg Neuts % (Manual) Lymphocytes % (Manual) Monocytes % (Manual) Nucleated RBC % Seg Neutrophils # Seg Neutrophils # Man Lymphocytes # (Manual) Monocytes # (Manual) PT INR APTT D-Dimer Heparin Anti-Xa Level ABG pH POC ABG pCO2 POC ABG pO2 ABG pO2 ABG HCO3 ABG O2 Saturation ABG Base Excess ABG Hemoglobin ABG Oxyhemoglobin ABG Sodium ABG Potassium ABG Glucose Oxyhemoglobin Sodium 135 L Potassium Chloride Carbon Dioxide BUN 48 H Creatinine Glucose 358 H POC Glucose 304 H 310 H Lactic Acid Calcium Phosphorus Magnesium Ferritin Lactate Dehydrogenase C-Reactive Protein NT-Pro-B Natriuret Pep Total Protein 6.0 L Albumin 2.9 L Triglycerides Arterial Blood Glucose Urine pH Ur Specific [place] Coronavirus (PCR) 03/12/21 03/12/21 03/12/21 08:03 10:43 11:31 WBC 14.6 H RBC Hgb Hct MCV MCHC RDW Plt Count Lymph % (Auto) [place] % (Auto) Lymph # (Auto) [place] # (Auto) Seg Neutrophils % Seg Neuts % (Manual) Lymphocytes % (Manual) Monocytes % (Manual) Nucleated RBC % Seg Neutrophils # Seg Neutrophils # Man Lymphocytes # (Manual) Monocytes # (Manual) PT INR APTT D-Dimer Heparin Anti-Xa Level ABG pH 7.248 L POC ABG pCO2 POC ABG pO2 ABG pO2 73.7 L ABG HCO3 32.0 H ABG O2 Saturation 93.9 L ABG Base Excess ABG Hemoglobin ABG Oxyhemoglobin ABG Sodium ABG Potassium ABG Glucose Oxyhemoglobin 92.1 L Sodium Potassium Chloride Carbon Dioxide BUN Creatinine Glucose POC Glucose 359 H Lactic Acid Calcium Phosphorus Magnesium Ferritin Lactate Dehydrogenase C-Reactive Protein NT-Pro-B Natriuret Pep Total Protein Albumin Triglycerides Arterial Blood Glucose Urine pH Ur Specific [place] Coronavirus (PCR) 03/12/21 03/12/21 03/13/21 17:20 21:54 00:02 WBC RBC Hgb Hct MCV MCHC RDW Plt Count Lymph % (Auto) [place] % (Auto) Lymph # (Auto) [place] # (Auto) Seg Neutrophils % Seg Neuts % (Manual) Lymphocytes % (Manual) Monocytes % (Manual) Nucleated RBC % Seg Neutrophils # Seg Neutrophils # Man Lymphocytes # (Manual) Monocytes # (Manual) PT INR APTT D-Dimer Heparin Anti-Xa Level ABG pH 7.238 L POC ABG pCO2 71.9 H POC ABG pO2 53.6 L ABG pO2 ABG HCO3 ABG O2 Saturation ABG Base Excess ABG Hemoglobin ABG Oxyhemoglobin 84.8 L ABG Sodium 134.2 L ABG Potassium 4.9 H ABG Glucose 306 H Oxyhemoglobin Sodium Potassium Chloride Carbon Dioxide BUN Creatinine Glucose POC Glucose 374 H 308 H Lactic Acid Calcium Phosphorus Magnesium Ferritin Lactate Dehydrogenase C-Reactive Protein NT-Pro-B Natriuret Pep Total Protein Albumin Triglycerides Arterial Blood Glucose 306 H Urine pH Ur Specific [place] Coronavirus (PCR) 03/13/21 03/13/21 03/13/21 05:22 05:44 05:44 WBC 13.9 H RBC Hgb Hct MCV MCHC RDW Plt Count Lymph % (Auto) [place] % (Auto) Lymph # (Auto) [place] # (Auto) Seg Neutrophils % Seg Neuts % (Manual) Lymphocytes % (Manual) Monocytes % (Manual) Nucleated RBC % Seg Neutrophils # Seg Neutrophils # Man Lymphocytes # (Manual) Monocytes # (Manual) PT INR APTT D-Dimer 3567.97 H Heparin Anti-Xa Level ABG pH POC ABG pCO2 POC ABG pO2 ABG pO2 ABG HCO3 ABG O2 Saturation ABG Base Excess ABG Hemoglobin ABG Oxyhemoglobin ABG Sodium ABG Potassium ABG Glucose Oxyhemoglobin Sodium Potassium Chloride Carbon Dioxide BUN Creatinine Glucose POC Glucose 316 H Lactic Acid Calcium Phosphorus Magnesium Ferritin Lactate Dehydrogenase C-Reactive Protein NT-Pro-B Natriuret Pep Total Protein Albumin Triglycerides Arterial Blood Glucose Urine pH Ur Specific [place] Coronavirus (PCR) 03/13/21 03/13/21 03/13/21 05:44 05:44 11:15 WBC RBC Hgb Hct MCV MCHC RDW Plt Count Lymph % (Auto) [place] % (Auto) Lymph # (Auto) [place] # (Auto) Seg Neutrophils % Seg Neuts % (Manual) Lymphocytes % (Manual) Monocytes % (Manual) Nucleated RBC % Seg Neutrophils # Seg Neutrophils # Man Lymphocytes # (Manual) Monocytes # (Manual) PT INR APTT D-Dimer Heparin Anti-Xa Level ABG pH 7.310 L POC ABG pCO2 POC ABG pO2 ABG pO2 52.3 L ABG HCO3 34.1 H ABG O2 Saturation 86.8 L ABG Base Excess 5.5 H ABG Hemoglobin 13.8 L ABG Oxyhemoglobin ABG Sodium ABG Potassium ABG Glucose Oxyhemoglobin 85.1 L Sodium Potassium Chloride Carbon Dioxide BUN Creatinine Glucose POC Glucose Lactic Acid Calcium Phosphorus Magnesium Ferritin 858.7 H Lactate Dehydrogenase 348 H C-Reactive Protein 2.80 H NT-Pro-B Natriuret Pep Total Protein Albumin Triglycerides Arterial Blood Glucose Urine pH Ur Specific [place] Coronavirus (PCR) 03/13/21 03/13/21 03/13/21 11:21 15:47 19:23 WBC RBC Hgb Hct MCV MCHC RDW Plt Count Lymph % (Auto) [place] % (Auto) Lymph # (Auto) [place] # (Auto) Seg Neutrophils % Seg Neuts % (Manual) Lymphocytes % (Manual) Monocytes % (Manual) Nucleated RBC % Seg Neutrophils # Seg Neutrophils # Man Lymphocytes # (Manual) Monocytes # (Manual) PT INR APTT D-Dimer Heparin Anti-Xa Level ABG pH POC ABG pCO2 POC ABG pO2 ABG pO2 ABG HCO3 ABG O2 Saturation ABG Base Excess ABG Hemoglobin ABG Oxyhemoglobin ABG Sodium ABG Potassium ABG Glucose Oxyhemoglobin Sodium 136 L Potassium 5.9 H Chloride Carbon Dioxide BUN 50 H Creatinine Glucose 397 H POC Glucose 322 H 317 H Lactic Acid Calcium Phosphorus Magnesium Ferritin Lactate Dehydrogenase C-Reactive Protein NT-Pro-B Natriuret Pep Total Protein Albumin Triglycerides Arterial Blood Glucose Urine pH Ur Specific [place] Coronavirus (PCR) 03/13/21 03/14/21 03/14/21 23:46 05:32 05:50 WBC 11.6 H RBC Hgb Hct MCV MCHC RDW Plt Count Lymph % (Auto) [place] % (Auto) Lymph # (Auto) [place] # (Auto) Seg Neutrophils % Seg Neuts % (Manual) Lymphocytes % (Manual) Monocytes % (Manual) Nucleated RBC % Seg Neutrophils # Seg Neutrophils # Man Lymphocytes # (Manual) Monocytes # (Manual) PT INR APTT D-Dimer Heparin Anti-Xa Level ABG pH POC ABG pCO2 POC ABG pO2 ABG pO2 ABG HCO3 ABG O2 Saturation ABG Base Excess ABG Hemoglobin ABG Oxyhemoglobin ABG Sodium ABG Potassium ABG Glucose Oxyhemoglobin Sodium Potassium Chloride Carbon Dioxide BUN Creatinine Glucose POC Glucose 332 H 316 H Lactic Acid Calcium Phosphorus Magnesium Ferritin Lactate Dehydrogenase C-Reactive Protein NT-Pro-B Natriuret Pep Total Protein Albumin Triglycerides Arterial Blood Glucose Urine pH Ur Specific [place] Coronavirus (PCR) 03/14/21 03/14/21 03/14/21 05:50 11:33 16:53 WBC RBC Hgb Hct MCV MCHC RDW Plt Count Lymph % (Auto) [place] % (Auto) Lymph # (Auto) [place] # (Auto) Seg Neutrophils % Seg Neuts % (Manual) Lymphocytes % (Manual) Monocytes % (Manual) Nucleated RBC % Seg Neutrophils # Seg Neutrophils # Man Lymphocytes # (Manual) Monocytes # (Manual) PT INR APTT D-Dimer Heparin Anti-Xa Level ABG pH POC ABG pCO2 POC ABG pO2 ABG pO2 ABG HCO3 ABG O2 Saturation ABG Base Excess ABG Hemoglobin ABG Oxyhemoglobin ABG Sodium ABG Potassium ABG Glucose Oxyhemoglobin Sodium Potassium 5.9 H Chloride Carbon Dioxide 31 H BUN 48 H Creatinine Glucose 380 H POC Glucose 315 H 235 H Lactic Acid Calcium Phosphorus Magnesium 3.40 H Ferritin Lactate Dehydrogenase C-Reactive Protein NT-Pro-B Natriuret Pep Total Protein Albumin Triglycerides Arterial Blood Glucose Urine pH Ur Specific [place] Coronavirus (PCR) 03/14/21 03/14/21 03/15/21 18:34 23:27 01:22 WBC RBC Hgb Hct 46.3 H MCV MCHC RDW Plt Count Lymph % (Auto) [place] % (Auto) Lymph # (Auto) [place] # (Auto) Seg Neutrophils % Seg Neuts % (Manual) Lymphocytes % (Manual) Monocytes % (Manual) Nucleated RBC % Seg Neutrophils # Seg Neutrophils # Man Lymphocytes # (Manual) Monocytes # (Manual) PT INR APTT D-Dimer Heparin Anti-Xa Level ABG pH POC ABG pCO2 POC ABG pO2 ABG pO2 ABG HCO3 ABG O2 Saturation ABG Base Excess ABG Hemoglobin ABG Oxyhemoglobin ABG Sodium ABG Potassium ABG Glucose Oxyhemoglobin Sodium 146 H Potassium Chloride Carbon Dioxide 34 H BUN 49 H Creatinine Glucose 285 H POC Glucose 203 H Lactic Acid Calcium Phosphorus Magnesium Ferritin Lactate Dehydrogenase C-Reactive Protein NT-Pro-B Natriuret Pep Total Protein Albumin Triglycerides Arterial Blood Glucose Urine pH Ur Specific [place] Coronavirus (PCR) 03/15/21 03/15/21 03/15/21 04:00 06:06 06:06 WBC RBC Hgb Hct MCV MCHC RDW Plt Count Lymph % (Auto) [place] % (Auto) Lymph # (Auto) [place] # (Auto) Seg Neutrophils % Seg Neuts % (Manual) Lymphocytes % (Manual) Monocytes % (Manual) Nucleated RBC % Seg Neutrophils # Seg Neutrophils # Man Lymphocytes # (Manual) Monocytes # (Manual) PT INR APTT D-Dimer 1781.79 H Heparin Anti-Xa Level ABG pH POC ABG pCO2 POC ABG pO2 ABG pO2 ABG HCO3 ABG O2 Saturation ABG Base Excess ABG Hemoglobin ABG Oxyhemoglobin ABG Sodium ABG Potassium ABG Glucose Oxyhemoglobin Sodium 148 H Potassium 5.7 H D Chloride 108.0 H Carbon Dioxide 31 H BUN 46 H Creatinine Glucose 139 H POC Glucose Lactic Acid Calcium Phosphorus 4.80 H D Magnesium 3.00 H Ferritin 976.4 H Lactate Dehydrogenase 630 H C-Reactive Protein NT-Pro-B Natriuret Pep Total Protein Albumin Triglycerides Arterial Blood Glucose Urine pH Ur Specific [place] Coronavirus (PCR) 03/15/21 03/15/21 03/15/21 11:56 14:05 17:09 WBC RBC Hgb Hct MCV MCHC RDW Plt Count Lymph % (Auto) [place] % (Auto) Lymph # (Auto) [place] # (Auto) Seg Neutrophils % Seg Neuts % (Manual) Lymphocytes % (Manual) Monocytes % (Manual) Nucleated RBC % Seg Neutrophils # Seg Neutrophils # Man Lymphocytes # (Manual) Monocytes # (Manual) PT INR APTT D-Dimer Heparin Anti-Xa Level ABG pH POC ABG pCO2 POC ABG pO2 ABG pO2 52.1 L ABG HCO3 36.6 H ABG O2 Saturation 87.6 L ABG Base Excess 9.5 H ABG Hemoglobin ABG Oxyhemoglobin ABG Sodium ABG Potassium ABG Glucose Oxyhemoglobin 85.7 L Sodium Potassium Chloride Carbon Dioxide BUN Creatinine Glucose POC Glucose 219 H 263 H Lactic Acid Calcium Phosphorus Magnesium Ferritin Lactate Dehydrogenase C-Reactive Protein NT-Pro-B Natriuret Pep Total Protein Albumin Triglycerides Arterial Blood Glucose Urine pH Ur Specific [place] Coronavirus (PCR) 03/16/21 03/16/21 03/16/21 00:32 04:11 04:11 WBC 11.9 H RBC Hgb Hct MCV MCHC 30 L RDW Plt Count Lymph % (Auto) [place] % (Auto) Lymph # (Auto) [place] # (Auto) Seg Neutrophils % Seg Neuts % (Manual) Lymphocytes % (Manual) Monocytes % (Manual) Nucleated RBC % Seg Neutrophils # Seg Neutrophils # Man Lymphocytes # (Manual) Monocytes # (Manual) PT INR APTT D-Dimer Heparin Anti-Xa Level ABG pH POC ABG pCO2 POC ABG pO2 ABG pO2 ABG HCO3 ABG O2 Saturation ABG Base Excess ABG Hemoglobin ABG Oxyhemoglobin ABG Sodium ABG Potassium ABG Glucose Oxyhemoglobin Sodium 151 H Potassium Chloride Carbon Dioxide 35 H BUN 48 H Creatinine Glucose 152 H POC Glucose 165 H Lactic Acid Calcium Phosphorus Magnesium Ferritin Lactate Dehydrogenase C-Reactive Protein NT-Pro-B Natriuret Pep Total Protein Albumin Triglycerides Arterial Blood Glucose Urine pH Ur Specific [place] Coronavirus (PCR) 03/16/21 03/16/21 03/16/21 04:11 05:26 11:35 WBC RBC Hgb Hct MCV MCHC RDW Plt Count Lymph % (Auto) [place] % (Auto) Lymph # (Auto) [place] # (Auto) Seg Neutrophils % Seg Neuts % (Manual) Lymphocytes % (Manual) Monocytes % (Manual) Nucleated RBC % Seg Neutrophils # Seg Neutrophils # Man Lymphocytes # (Manual) Monocytes # (Manual) PT INR APTT D-Dimer Heparin Anti-Xa Level ABG pH POC ABG pCO2 POC ABG pO2 ABG pO2 ABG HCO3 ABG O2 Saturation ABG Base Excess ABG Hemoglobin ABG Oxyhemoglobin ABG Sodium ABG Potassium ABG Glucose Oxyhemoglobin Sodium Potassium Chloride Carbon Dioxide BUN Creatinine Glucose POC Glucose 162 H 187 H Lactic Acid Calcium Phosphorus Magnesium Ferritin Lactate Dehydrogenase C-Reactive Protein NT-Pro-B Natriuret Pep Total Protein Albumin Triglycerides 267 H Arterial Blood Glucose Urine pH Ur Specific [place] Coronavirus (PCR) 03/16/21 03/16/21 03/16/21 17:29 22:25 23:22 WBC RBC Hgb Hct MCV MCHC RDW Plt Count Lymph % (Auto) [place] % (Auto) Lymph # (Auto) [place] # (Auto) Seg Neutrophils % Seg Neuts % (Manual) Lymphocytes % (Manual) Monocytes % (Manual) Nucleated RBC % Seg Neutrophils # Seg Neutrophils # Man Lymphocytes # (Manual) Monocytes # (Manual) PT INR APTT D-Dimer Heparin Anti-Xa Level ABG pH POC ABG pCO2 POC ABG pO2 ABG pO2 ABG HCO3 ABG O2 Saturation ABG Base Excess ABG Hemoglobin ABG Oxyhemoglobin ABG Sodium ABG Potassium ABG Glucose Oxyhemoglobin Sodium Potassium Chloride Carbon Dioxide BUN Creatinine Glucose POC Glucose 237 H 165 H 189 H Lactic Acid Calcium Phosphorus Magnesium Ferritin Lactate Dehydrogenase C-Reactive Protein NT-Pro-B Natriuret Pep Total Protein Albumin Triglycerides Arterial Blood Glucose Urine pH Ur Specific [place] Coronavirus (PCR) 03/17/21 03/17/21 03/17/21 04:40 04:40 04:40 WBC 14.1 H RBC Hgb Hct MCV MCHC RDW 15.3 H Plt Count Lymph % (Auto) 12.6 L [place] % (Auto) 11.3 H Lymph # (Auto) [place] # (Auto) 1.6 H Seg Neutrophils % 74.9 H Seg Neuts % (Manual) Lymphocytes % (Manual) Monocytes % (Manual) Nucleated RBC % Seg Neutrophils # 10.5 H Seg Neutrophils # Man Lymphocytes # (Manual) Monocytes # (Manual) PT INR APTT D-Dimer 1359.12 H Heparin Anti-Xa Level ABG pH POC ABG pCO2 POC ABG pO2 ABG pO2 ABG HCO3 ABG O2 Saturation ABG Base Excess ABG Hemoglobin ABG Oxyhemoglobin ABG Sodium ABG Potassium ABG Glucose Oxyhemoglobin Sodium 148 H Potassium Chloride 107.5 H Carbon Dioxide 33 H BUN 42 H Creatinine Glucose 183 H POC Glucose Lactic Acid Calcium Phosphorus Magnesium 2.70 H Ferritin Lactate Dehydrogenase C-Reactive Protein NT-Pro-B Natriuret Pep Total Protein Albumin Triglycerides Arterial Blood Glucose Urine pH Ur Specific [place] Coronavirus (PCR) 03/17/21 03/17/21 03/17/21 05:53 11:05 11:51 WBC RBC Hgb Hct MCV MCHC RDW Plt Count Lymph % (Auto) [place] % (Auto) Lymph # (Auto) [place] # (Auto) Seg Neutrophils % Seg Neuts % (Manual) Lymphocytes % (Manual) Monocytes % (Manual) Nucleated RBC % Seg Neutrophils # Seg Neutrophils # Man Lymphocytes # (Manual) Monocytes # (Manual) PT INR APTT D-Dimer Heparin Anti-Xa Level ABG pH POC ABG pCO2 POC ABG pO2 ABG pO2 ABG HCO3 35.7 H ABG O2 Saturation ABG Base Excess 8.7 H ABG Hemoglobin ABG Oxyhemoglobin ABG Sodium ABG Potassium ABG Glucose Oxyhemoglobin 94.2 L Sodium Potassium Chloride Carbon Dioxide BUN Creatinine Glucose POC Glucose 176 H 197 H Lactic Acid Calcium Phosphorus Magnesium Ferritin Lactate Dehydrogenase C-Reactive Protein NT-Pro-B Natriuret Pep Total Protein Albumin Triglycerides Arterial Blood Glucose Urine pH Ur Specific [place] Coronavirus (PCR) 03/17/21 03/17/21 03/17/21 16:54 21:10 23:33 WBC RBC Hgb Hct MCV MCHC RDW Plt Count Lymph % (Auto) [place] % (Auto) Lymph # (Auto) [place] # (Auto) Seg Neutrophils % Seg Neuts % (Manual) Lymphocytes % (Manual) Monocytes % (Manual) Nucleated RBC % Seg Neutrophils # Seg Neutrophils # Man Lymphocytes # (Manual) Monocytes # (Manual) PT INR APTT D-Dimer Heparin Anti-Xa Level ABG pH POC ABG pCO2 POC ABG pO2 ABG pO2 ABG HCO3 ABG O2 Saturation ABG Base Excess ABG Hemoglobin ABG Oxyhemoglobin ABG Sodium ABG Potassium ABG Glucose Oxyhemoglobin Sodium Potassium Chloride Carbon Dioxide BUN Creatinine Glucose POC Glucose 135 H 160 H 138 H Lactic Acid Calcium Phosphorus Magnesium Ferritin Lactate Dehydrogenase C-Reactive Protein NT-Pro-B Natriuret Pep Total Protein Albumin Triglycerides Arterial Blood Glucose Urine pH Ur Specific [place] Coronavirus (PCR) 03/18/21 03/18/21 03/18/21 04:18 04:50 05:43 WBC RBC Hgb Hct MCV MCHC RDW Plt Count Lymph % (Auto) [place] % (Auto) Lymph # (Auto) [place] # (Auto) Seg Neutrophils % Seg Neuts % (Manual) Lymphocytes % (Manual) Monocytes % (Manual) Nucleated RBC % Seg Neutrophils # Seg Neutrophils # Man Lymphocytes # (Manual) Monocytes # (Manual) PT INR APTT D-Dimer Heparin Anti-Xa Level ABG pH POC ABG pCO2 POC ABG pO2 ABG pO2 59.8 L ABG HCO3 36.5 H ABG O2 Saturation 90.7 L ABG Base Excess 9.4 H ABG Hemoglobin 12.0 L ABG Oxyhemoglobin ABG Sodium ABG Potassium ABG Glucose Oxyhemoglobin 88.9 L Sodium Potassium Chloride 107.2 H Carbon Dioxide 34 H BUN 38 H Creatinine 0.7 L Glucose 136 H POC Glucose 128 H Lactic Acid Calcium Phosphorus Magnesium Ferritin Lactate Dehydrogenase C-Reactive Protein NT-Pro-B Natriuret Pep Total Protein Albumin Triglycerides Arterial Blood Glucose Urine pH Ur Specific [place] Coronavirus (PCR) 03/18/21 03/18/21 03/18/21 11:20 17:35 23:35 WBC RBC Hgb Hct MCV MCHC RDW Plt Count Lymph % (Auto) [place] % (Auto) Lymph # (Auto) [place] # (Auto) Seg Neutrophils % Seg Neuts % (Manual) Lymphocytes % (Manual) Monocytes % (Manual) Nucleated RBC % Seg Neutrophils # Seg Neutrophils # Man Lymphocytes # (Manual) Monocytes # (Manual) PT INR APTT D-Dimer Heparin Anti-Xa Level ABG pH POC ABG pCO2 POC ABG pO2 ABG pO2 70.7 L ABG HCO3 33.6 H ABG O2 Saturation ABG Base Excess 8.0 H ABG Hemoglobin ABG Oxyhemoglobin ABG Sodium ABG Potassium ABG Glucose Oxyhemoglobin 93.7 L Sodium Potassium Chloride Carbon Dioxide BUN Creatinine Glucose POC Glucose 189 H 144 H Lactic Acid Calcium Phosphorus Magnesium Ferritin Lactate Dehydrogenase C-Reactive Protein NT-Pro-B Natriuret Pep Total Protein Albumin Triglycerides Arterial Blood Glucose Urine pH Ur Specific [place] Coronavirus (PCR) 03/19/21 03/19/21 03/19/21 02:35 04:20 04:20 WBC 14.0 H RBC Hgb Hct MCV MCHC RDW Plt Count Lymph % (Auto) [place] % (Auto) Lymph # (Auto) [place] # (Auto) Seg Neutrophils % Seg Neuts % (Manual) Lymphocytes % (Manual) Monocytes % (Manual) Nucleated RBC % Seg Neutrophils # Seg Neutrophils # Man Lymphocytes # (Manual) Monocytes # (Manual) PT INR APTT D-Dimer Heparin Anti-Xa Level ABG pH POC ABG pCO2 POC ABG pO2 ABG pO2 ABG HCO3 32.0 H ABG O2 Saturation ABG Base Excess 5.2 H ABG Hemoglobin 13.6 L ABG Oxyhemoglobin ABG Sodium ABG Potassium ABG Glucose Oxyhemoglobin 94.6 L Sodium 146 H Potassium Chloride 109.3 H Carbon Dioxide BUN 36 H Creatinine Glucose 203 H POC Glucose Lactic Acid Calcium Phosphorus Magnesium Ferritin Lactate Dehydrogenase C-Reactive Protein NT-Pro-B Natriuret Pep Total Protein Albumin Triglycerides 254 H Arterial Blood Glucose Urine pH Ur Specific [place] Coronavirus (PCR) 03/19/21 03/19/21 03/19/21 05:45 11:36 23:51 WBC RBC Hgb Hct MCV MCHC RDW Plt Count Lymph % (Auto) [place] % (Auto) Lymph # (Auto) [place] # (Auto) Seg Neutrophils % Seg Neuts % (Manual) Lymphocytes % (Manual) Monocytes % (Manual) Nucleated RBC % Seg Neutrophils # Seg Neutrophils # Man Lymphocytes # (Manual) Monocytes # (Manual) PT INR APTT D-Dimer Heparin Anti-Xa Level ABG pH POC ABG pCO2 POC ABG pO2 ABG pO2 ABG HCO3 ABG O2 Saturation ABG Base Excess ABG Hemoglobin ABG Oxyhemoglobin ABG Sodium ABG Potassium ABG Glucose Oxyhemoglobin Sodium Potassium Chloride Carbon Dioxide BUN Creatinine Glucose POC Glucose 164 H 172 H 140 H Lactic Acid Calcium Phosphorus Magnesium Ferritin Lactate Dehydrogenase C-Reactive Protein NT-Pro-B Natriuret Pep Total Protein Albumin Triglycerides Arterial Blood Glucose Urine pH Ur Specific [place] Coronavirus (PCR) 03/20/21 03/20/21 03/20/21 03:29 04:45 04:45 WBC RBC Hgb Hct MCV 95 H MCHC RDW 15.7 H Plt Count Lymph % (Auto) [place] % (Auto) Lymph # (Auto) [place] # (Auto) Seg Neutrophils % Seg Neuts % (Manual) Lymphocytes % (Manual) Monocytes % (Manual) Nucleated RBC % Seg Neutrophils # Seg Neutrophils # Man Lymphocytes # (Manual) Monocytes # (Manual) PT INR APTT D-Dimer Heparin Anti-Xa Level ABG pH 7.349 L POC ABG pCO2 POC ABG pO2 ABG pO2 ABG HCO3 33.7 H ABG O2 Saturation ABG Base Excess 6.4 H ABG Hemoglobin 11.8 L ABG Oxyhemoglobin ABG Sodium ABG Potassium ABG Glucose Oxyhemoglobin 93.9 L Sodium 146 H Potassium 5.5 H Chloride 111.1 H Carbon Dioxide BUN 34 H Creatinine 0.7 L Glucose 145 H POC Glucose Lactic Acid Calcium Phosphorus Magnesium 2.50 H Ferritin Lactate Dehydrogenase C-Reactive Protein NT-Pro-B Natriuret Pep Total Protein Albumin Triglycerides Arterial Blood Glucose Urine pH Ur Specific [place] Coronavirus (PCR) 03/20/21 03/20/21 03/20/21 05:41 09:08 11:54 WBC RBC Hgb Hct MCV MCHC RDW Plt Count Lymph % (Auto) [place] % (Auto) Lymph # (Auto) [place] # (Auto) Seg Neutrophils % Seg Neuts % (Manual) Lymphocytes % (Manual) Monocytes % (Manual) Nucleated RBC % Seg Neutrophils # Seg Neutrophils # Man Lymphocytes # (Manual) Monocytes # (Manual) PT INR APTT D-Dimer Heparin Anti-Xa Level ABG pH POC ABG pCO2 POC ABG pO2 ABG pO2 ABG HCO3 ABG O2 Saturation ABG Base Excess ABG Hemoglobin ABG Oxyhemoglobin ABG Sodium ABG Potassium ABG Glucose Oxyhemoglobin Sodium Potassium Chloride Carbon Dioxide BUN Creatinine Glucose POC Glucose 108 H 132 H 162 H Lactic Acid Calcium Phosphorus Magnesium Ferritin Lactate Dehydrogenase C-Reactive Protein NT-Pro-B Natriuret Pep Total Protein Albumin Triglycerides Arterial Blood Glucose Urine pH Ur Specific [place] Coronavirus (PCR) 03/20/21 03/21/21 03/21/21 17:28 00:31 04:44 WBC RBC Hgb Hct MCV MCHC RDW Plt Count Lymph % (Auto) [place] % (Auto) Lymph # (Auto) [place] # (Auto) Seg Neutrophils % Seg Neuts % (Manual) Lymphocytes % (Manual) Monocytes % (Manual) Nucleated RBC % Seg Neutrophils # Seg Neutrophils # Man Lymphocytes # (Manual) Monocytes # (Manual) PT INR APTT D-Dimer Heparin Anti-Xa Level ABG pH POC ABG pCO2 POC ABG pO2 ABG pO2 ABG HCO3 ABG O2 Saturation ABG Base Excess ABG Hemoglobin ABG Oxyhemoglobin ABG Sodium ABG Potassium ABG Glucose Oxyhemoglobin Sodium Potassium Chloride 108.3 H Carbon Dioxide BUN 30 H Creatinine 0.7 L Glucose POC Glucose 160 H 122 H Lactic Acid Calcium Phosphorus Magnesium Ferritin Lactate Dehydrogenase C-Reactive Protein NT-Pro-B Natriuret Pep Total Protein Albumin Triglycerides Arterial Blood Glucose Urine pH Ur Specific [place] Coronavirus (PCR) 03/21/21 03/21/21 03/21/21 09:18 10:09 13:20 WBC RBC Hgb Hct MCV MCHC RDW Plt Count Lymph % (Auto) [place] % (Auto) Lymph # (Auto) [place] # (Auto) Seg Neutrophils % Seg Neuts % (Manual) Lymphocytes % (Manual) Monocytes % (Manual) Nucleated RBC % Seg Neutrophils # Seg Neutrophils # Man Lymphocytes # (Manual) Monocytes # (Manual) PT INR APTT D-Dimer Heparin Anti-Xa Level ABG pH POC ABG pCO2 POC ABG pO2 ABG pO2 60.7 L ABG HCO3 30.6 H ABG O2 Saturation 93.6 L ABG Base Excess 5.3 H ABG Hemoglobin ABG Oxyhemoglobin ABG Sodium ABG Potassium ABG Glucose Oxyhemoglobin 91.7 L Sodium Potassium Chloride Carbon Dioxide BUN Creatinine Glucose POC Glucose 169 H 122 H Lactic Acid Calcium Phosphorus Magnesium Ferritin Lactate Dehydrogenase C-Reactive Protein NT-Pro-B Natriuret Pep Total Protein Albumin Triglycerides Arterial Blood Glucose Urine pH Ur Specific [place] Coronavirus (PCR) 03/21/21 03/21/21 03/21/21 17:25 22:41 23:52 WBC RBC Hgb Hct MCV MCHC RDW Plt Count Lymph % (Auto) [place] % (Auto) Lymph # (Auto) [place] # (Auto) Seg Neutrophils % Seg Neuts % (Manual) Lymphocytes % (Manual) Monocytes % (Manual) Nucleated RBC % Seg Neutrophils # Seg Neutrophils # Man Lymphocytes # (Manual) Monocytes # (Manual) PT INR APTT D-Dimer Heparin Anti-Xa Level ABG pH POC ABG pCO2 POC ABG pO2 ABG pO2 ABG HCO3 ABG O2 Saturation ABG Base Excess ABG Hemoglobin ABG Oxyhemoglobin ABG Sodium ABG Potassium ABG Glucose Oxyhemoglobin Sodium Potassium Chloride Carbon Dioxide BUN Creatinine Glucose POC Glucose 121 H 139 H 140 H Lactic Acid Calcium Phosphorus Magnesium Ferritin Lactate Dehydrogenase C-Reactive Protein NT-Pro-B Natriuret Pep Total Protein Albumin Triglycerides Arterial Blood Glucose Urine pH Ur Specific [place] Coronavirus (PCR) 03/22/21 03/22/21 03/22/21 05:58 07:26 07:26 WBC RBC Hgb Hct MCV MCHC 31 L RDW 16.1 H Plt Count Lymph % (Auto) [place] % (Auto) Lymph # (Auto) [place] # (Auto) Seg Neutrophils % Seg Neuts % (Manual) Lymphocytes % (Manual) Monocytes % (Manual) Nucleated RBC % Seg Neutrophils # Seg Neutrophils # Man Lymphocytes # (Manual) Monocytes # (Manual) PT INR APTT D-Dimer Heparin Anti-Xa Level ABG pH POC ABG pCO2 POC ABG pO2 ABG pO2 ABG HCO3 ABG O2 Saturation ABG Base Excess ABG Hemoglobin ABG Oxyhemoglobin ABG Sodium ABG Potassium ABG Glucose Oxyhemoglobin Sodium Potassium Chloride 108.5 H Carbon Dioxide BUN 44 H Creatinine Glucose 120 H POC Glucose 131 H Lactic Acid Calcium Phosphorus 5.80 H Magnesium 2.80 H Ferritin Lactate Dehydrogenase C-Reactive Protein NT-Pro-B Natriuret Pep Total Protein Albumin Triglycerides 305 H Arterial Blood Glucose Urine pH Ur Specific [place] Coronavirus (PCR) 03/22/21 03/22/21 03/22/21 09:38 11:15 16:01 WBC RBC Hgb Hct MCV MCHC RDW Plt Count Lymph % (Auto) [place] % (Auto) Lymph # (Auto) [place] # (Auto) Seg Neutrophils % Seg Neuts % (Manual) Lymphocytes % (Manual) Monocytes % (Manual) Nucleated RBC % Seg Neutrophils # Seg Neutrophils # Man Lymphocytes # (Manual) Monocytes # (Manual) PT INR APTT D-Dimer Heparin Anti-Xa Level ABG pH POC ABG pCO2 POC ABG pO2 ABG pO2 70.0 L ABG HCO3 30.0 H ABG O2 Saturation 94.6 L ABG Base Excess 3.6 H ABG Hemoglobin 13.5 L ABG Oxyhemoglobin ABG Sodium ABG Potassium ABG Glucose Oxyhemoglobin 92.5 L Sodium Potassium Chloride Carbon Dioxide BUN Creatinine Glucose POC Glucose 186 H 148 H Lactic Acid Calcium Phosphorus Magnesium Ferritin Lactate Dehydrogenase C-Reactive Protein NT-Pro-B Natriuret Pep Total Protein Albumin Triglycerides Arterial Blood Glucose Urine pH Ur Specific [place] Coronavirus (PCR) 03/22/21 03/22/21 03/23/21 21:13 23:48 07:04 WBC 11.7 H RBC Hgb Hct MCV 95 H MCHC RDW 16.1 H Plt Count Lymph % (Auto) [place] % (Auto) Lymph # (Auto) [place] # (Auto) Seg Neutrophils % Seg Neuts % (Manual) Lymphocytes % (Manual) Monocytes % (Manual) Nucleated RBC % Seg Neutrophils # Seg Neutrophils # Man Lymphocytes # (Manual) Monocytes # (Manual) PT INR APTT D-Dimer Heparin Anti-Xa Level ABG pH POC ABG pCO2 POC ABG pO2 ABG pO2 ABG HCO3 ABG O2 Saturation ABG Base Excess ABG Hemoglobin ABG Oxyhemoglobin ABG Sodium ABG Potassium ABG Glucose Oxyhemoglobin Sodium Potassium Chloride Carbon Dioxide BUN Creatinine Glucose POC Glucose 121 H 114 H Lactic Acid Calcium Phosphorus Magnesium Ferritin Lactate Dehydrogenase C-Reactive Protein NT-Pro-B Natriuret Pep Total Protein Albumin Triglycerides Arterial Blood Glucose Urine pH Ur Specific [place] Coronavirus (PCR) 03/23/21 03/23/21 03/23/21 07:04 08:35 11:19 WBC RBC Hgb Hct MCV MCHC RDW Plt Count Lymph % (Auto) [place] % (Auto) Lymph # (Auto) [place] # (Auto) Seg Neutrophils % Seg Neuts % (Manual) Lymphocytes % (Manual) Monocytes % (Manual) Nucleated RBC % Seg Neutrophils # Seg Neutrophils # Man Lymphocytes # (Manual) Monocytes # (Manual) PT INR APTT D-Dimer Heparin Anti-Xa Level ABG pH 7.345 L POC ABG pCO2 POC ABG pO2 ABG pO2 167.9 H ABG HCO3 32.2 H ABG O2 Saturation ABG Base Excess 4.8 H ABG Hemoglobin 13.4 L ABG Oxyhemoglobin ABG Sodium ABG Potassium ABG Glucose Oxyhemoglobin Sodium 148 H Potassium Chloride 111.3 H Carbon Dioxide 31 H BUN 31 H Creatinine Glucose 131 H POC Glucose 165 H Lactic Acid Calcium Phosphorus Magnesium 2.50 H Ferritin Lactate Dehydrogenase C-Reactive Protein NT-Pro-B Natriuret Pep Total Protein Albumin Triglycerides Arterial Blood Glucose Urine pH Ur Specific [place] Coronavirus (PCR) 03/23/21 03/23/21 03/24/21 16:48 20:52 00:07 WBC RBC Hgb Hct MCV MCHC RDW Plt Count Lymph % (Auto) [place] % (Auto) Lymph # (Auto) [place] # (Auto) Seg Neutrophils % Seg Neuts % (Manual) Lymphocytes % (Manual) Monocytes % (Manual) Nucleated RBC % Seg Neutrophils # Seg Neutrophils # Man Lymphocytes # (Manual) Monocytes # (Manual) PT INR APTT D-Dimer Heparin Anti-Xa Level ABG pH POC ABG pCO2 POC ABG pO2 ABG pO2 ABG HCO3 ABG O2 Saturation ABG Base Excess ABG Hemoglobin ABG Oxyhemoglobin ABG Sodium ABG Potassium ABG Glucose Oxyhemoglobin Sodium Potassium Chloride Carbon Dioxide BUN Creatinine Glucose POC Glucose 160 H 127 H 147 H Lactic Acid Calcium Phosphorus Magnesium Ferritin Lactate Dehydrogenase C-Reactive Protein NT-Pro-B Natriuret Pep Total Protein Albumin Triglycerides Arterial Blood Glucose Urine pH Ur Specific [place] Coronavirus (PCR) 03/24/21 03/24/21 03/24/21 04:34 04:34 05:20 WBC 13.3 H RBC Hgb Hct MCV MCHC 31 L RDW 16.1 H Plt Count Lymph % (Auto) [place] % (Auto) Lymph # (Auto) [place] # (Auto) Seg Neutrophils % Seg Neuts % (Manual) Lymphocytes % (Manual) Monocytes % (Manual) Nucleated RBC % Seg Neutrophils # Seg Neutrophils # Man Lymphocytes # (Manual) Monocytes # (Manual) PT INR APTT D-Dimer Heparin Anti-Xa Level ABG pH POC ABG pCO2 POC ABG pO2 ABG pO2 ABG HCO3 ABG O2 Saturation ABG Base Excess ABG Hemoglobin ABG Oxyhemoglobin ABG Sodium ABG Potassium ABG Glucose Oxyhemoglobin Sodium Potassium 5.2 H Chloride Carbon Dioxide BUN 28 H Creatinine 0.7 L Glucose 152 H POC Glucose 141 H Lactic Acid Calcium Phosphorus Magnesium Ferritin Lactate Dehydrogenase C-Reactive Protein NT-Pro-B Natriuret Pep Total Protein Albumin Triglycerides Arterial Blood Glucose Urine pH Ur Specific [place] Coronavirus (PCR) 03/24/21 03/24/21 03/24/21 09:40 11:38 16:45 WBC RBC Hgb Hct MCV MCHC RDW Plt Count Lymph % (Auto) [place] % (Auto) Lymph # (Auto) [place] # (Auto) Seg Neutrophils % Seg Neuts % (Manual) Lymphocytes % (Manual) Monocytes % (Manual) Nucleated RBC % Seg Neutrophils # Seg Neutrophils # Man Lymphocytes # (Manual) Monocytes # (Manual) PT INR APTT D-Dimer Heparin Anti-Xa Level ABG pH POC ABG pCO2 POC ABG pO2 ABG pO2 ABG HCO3 ABG O2 Saturation ABG Base Excess ABG Hemoglobin ABG Oxyhemoglobin ABG Sodium ABG Potassium ABG Glucose Oxyhemoglobin Sodium Potassium Chloride Carbon Dioxide BUN Creatinine Glucose POC Glucose 126 H 136 H 118 H Lactic Acid Calcium Phosphorus Magnesium Ferritin Lactate Dehydrogenase C-Reactive Protein NT-Pro-B Natriuret Pep Total Protein Albumin Triglycerides Arterial Blood Glucose Urine pH Ur Specific [place] Coronavirus (PCR) 03/24/21 03/24/21 03/25/21 21:03 23:49 04:32 WBC RBC Hgb Hct MCV MCHC RDW 16.1 H Plt Count 121 L Lymph % (Auto) [place] % (Auto) Lymph # (Auto) [place] # (Auto) Seg Neutrophils % Seg Neuts % (Manual) Lymphocytes % (Manual) Monocytes % (Manual) Nucleated RBC % Seg Neutrophils # Seg Neutrophils # Man Lymphocytes # (Manual) Monocytes # (Manual) PT INR APTT D-Dimer Heparin Anti-Xa Level ABG pH POC ABG pCO2 POC ABG pO2 ABG pO2 ABG HCO3 ABG O2 Saturation ABG Base Excess ABG Hemoglobin ABG Oxyhemoglobin ABG Sodium ABG Potassium ABG Glucose Oxyhemoglobin Sodium Potassium Chloride Carbon Dioxide BUN Creatinine Glucose POC Glucose 116 H 125 H Lactic Acid Calcium Phosphorus Magnesium Ferritin Lactate Dehydrogenase C-Reactive Protein NT-Pro-B Natriuret Pep Total Protein Albumin Triglycerides Arterial Blood Glucose Urine pH Ur Specific [place] Coronavirus (PCR) 03/25/21 03/25/21 03/25/21 04:32 05:21 09:29 WBC RBC Hgb Hct MCV MCHC RDW Plt Count Lymph % (Auto) [place] % (Auto) Lymph # (Auto) [place] # (Auto) Seg Neutrophils % Seg Neuts % (Manual) Lymphocytes % (Manual) Monocytes % (Manual) Nucleated RBC % Seg Neutrophils # Seg Neutrophils # Man Lymphocytes # (Manual) Monocytes # (Manual) PT INR APTT D-Dimer Heparin Anti-Xa Level ABG pH POC ABG pCO2 POC ABG pO2 ABG pO2 ABG HCO3 ABG O2 Saturation ABG Base Excess ABG Hemoglobin ABG Oxyhemoglobin ABG Sodium ABG Potassium ABG Glucose Oxyhemoglobin Sodium 135 L D Potassium Chloride Carbon Dioxide BUN 25 H Creatinine 0.7 L Glucose 168 H POC Glucose 149 H 115 H Lactic Acid Calcium Phosphorus Magnesium Ferritin Lactate Dehydrogenase C-Reactive Protein NT-Pro-B Natriuret Pep Total Protein Albumin Triglycerides Arterial Blood Glucose Urine pH Ur Specific [place] Coronavirus (PCR) 03/25/21 03/25/21 03/25/21 12:26 12:35 23:53 WBC RBC Hgb Hct MCV MCHC RDW Plt Count Lymph % (Auto) [place] % (Auto) Lymph # (Auto) [place] # (Auto) Seg Neutrophils % Seg Neuts % (Manual) Lymphocytes % (Manual) Monocytes % (Manual) Nucleated RBC % Seg Neutrophils # Seg Neutrophils # Man Lymphocytes # (Manual) Monocytes # (Manual) PT INR APTT D-Dimer Heparin Anti-Xa Level ABG pH POC ABG pCO2 POC ABG pO2 ABG pO2 100.5 H ABG HCO3 33.6 H ABG O2 Saturation ABG Base Excess 6.4 H ABG Hemoglobin 12.0 L ABG Oxyhemoglobin ABG Sodium ABG Potassium ABG Glucose Oxyhemoglobin Sodium Potassium Chloride Carbon Dioxide BUN Creatinine Glucose POC Glucose 108 H 137 H Lactic Acid Calcium Phosphorus Magnesium Ferritin Lactate Dehydrogenase C-Reactive Protein NT-Pro-B Natriuret Pep Total Protein Albumin Triglycerides Arterial Blood Glucose Urine pH Ur Specific [place] Coronavirus (PCR) 03/26/21 03/26/21 03/26/21 05:14 07:09 07:09 WBC RBC Hgb Hct MCV MCHC RDW 16.5 H Plt Count 139 L Lymph % (Auto) [place] % (Auto) Lymph # (Auto) [place] # (Auto) Seg Neutrophils % Seg Neuts % (Manual) Lymphocytes % (Manual) Monocytes % (Manual) Nucleated RBC % Seg Neutrophils # Seg Neutrophils # Man Lymphocytes # (Manual) Monocytes # (Manual) PT INR APTT D-Dimer Heparin Anti-Xa Level ABG pH POC ABG pCO2 POC ABG pO2 ABG pO2 ABG HCO3 ABG O2 Saturation ABG Base Excess ABG Hemoglobin ABG Oxyhemoglobin ABG Sodium ABG Potassium ABG Glucose Oxyhemoglobin Sodium Potassium Chloride Carbon Dioxide BUN 22 H Creatinine 0.7 L Glucose 108 H POC Glucose 116 H Lactic Acid Calcium Phosphorus Magnesium Ferritin Lactate Dehydrogenase C-Reactive Protein NT-Pro-B Natriuret Pep Total Protein Albumin Triglycerides Arterial Blood Glucose Urine pH Ur Specific [place] Coronavirus (PCR) 03/26/21 03/26/21 03/26/21 09:51 11:15 16:59 WBC RBC Hgb Hct MCV MCHC RDW Plt Count Lymph % (Auto) [place] % (Auto) Lymph # (Auto) [place] # (Auto) Seg Neutrophils % Seg Neuts % (Manual) Lymphocytes % (Manual) Monocytes % (Manual) Nucleated RBC % Seg Neutrophils # Seg Neutrophils # Man Lymphocytes # (Manual) Monocytes # (Manual) PT INR APTT D-Dimer Heparin Anti-Xa Level ABG pH POC ABG pCO2 POC ABG pO2 ABG pO2 ABG HCO3 ABG O2 Saturation ABG Base Excess ABG Hemoglobin ABG Oxyhemoglobin ABG Sodium ABG Potassium ABG Glucose Oxyhemoglobin Sodium Potassium Chloride Carbon Dioxide BUN Creatinine Glucose POC Glucose 107 H 119 H 174 H Lactic Acid Calcium Phosphorus Magnesium Ferritin Lactate Dehydrogenase C-Reactive Protein NT-Pro-B Natriuret Pep Total Protein Albumin Triglycerides Arterial Blood Glucose Urine pH Ur Specific [place] Coronavirus (PCR) 03/26/21 03/27/21 03/27/21 22:18 07:08 10:28 WBC RBC Hgb Hct MCV 95 H MCHC RDW 16.2 H Plt Count 134 L Lymph % (Auto) [place] % (Auto) Lymph # (Auto) [place] # (Auto) Seg Neutrophils % Seg Neuts % (Manual) Lymphocytes % (Manual) Monocytes % (Manual) Nucleated RBC % Seg Neutrophils # Seg Neutrophils # Man Lymphocytes # (Manual) Monocytes # (Manual) PT INR APTT D-Dimer Heparin Anti-Xa Level ABG pH POC ABG pCO2 POC ABG pO2 ABG pO2 ABG HCO3 ABG O2 Saturation ABG Base Excess ABG Hemoglobin ABG Oxyhemoglobin ABG Sodium ABG Potassium ABG Glucose Oxyhemoglobin Sodium Potassium Chloride Carbon Dioxide BUN Creatinine Glucose POC Glucose 107 H 52 L Lactic Acid Calcium Phosphorus Magnesium Ferritin Lactate Dehydrogenase C-Reactive Protein NT-Pro-B Natriuret Pep Total Protein Albumin Triglycerides Arterial Blood Glucose Urine pH Ur Specific [place] Coronavirus (PCR) 03/27/21 03/27/21 03/27/21 10:28 11:45 17:39 WBC RBC Hgb Hct MCV MCHC RDW Plt Count Lymph % (Auto) [place] % (Auto) Lymph # (Auto) [place] # (Auto) Seg Neutrophils % Seg Neuts % (Manual) Lymphocytes % (Manual) Monocytes % (Manual) Nucleated RBC % Seg Neutrophils # Seg Neutrophils # Man Lymphocytes # (Manual) Monocytes # (Manual) PT INR APTT D-Dimer Heparin Anti-Xa Level ABG pH POC ABG pCO2 POC ABG pO2 ABG pO2 ABG HCO3 ABG O2 Saturation ABG Base Excess ABG Hemoglobin ABG Oxyhemoglobin ABG Sodium ABG Potassium ABG Glucose Oxyhemoglobin Sodium 136 L Potassium Chloride Carbon Dioxide BUN Creatinine 0.7 L Glucose 150 H POC Glucose 121 H 165 H Lactic Acid Calcium Phosphorus Magnesium Ferritin Lactate Dehydrogenase C-Reactive Protein NT-Pro-B Natriuret Pep Total Protein Albumin Triglycerides Arterial Blood Glucose Urine pH Ur Specific [place] Coronavirus (PCR) 03/28/21 03/28/21 03/28/21 07:14 11:42 18:22 WBC RBC Hgb Hct MCV MCHC RDW 16.4 H Plt Count Lymph % (Auto) [place] % (Auto) Lymph # (Auto) [place] # (Auto) Seg Neutrophils % Seg Neuts % (Manual) Lymphocytes % (Manual) Monocytes % (Manual) Nucleated RBC % Seg Neutrophils # Seg Neutrophils # Man Lymphocytes # (Manual) Monocytes # (Manual) PT INR APTT D-Dimer Heparin Anti-Xa Level ABG pH POC ABG pCO2 POC ABG pO2 ABG pO2 ABG HCO3 ABG O2 Saturation ABG Base Excess ABG Hemoglobin ABG Oxyhemoglobin ABG Sodium ABG Potassium ABG Glucose Oxyhemoglobin Sodium Potassium Chloride Carbon Dioxide BUN Creatinine Glucose POC Glucose 145 H 169 H Lactic Acid Calcium Phosphorus Magnesium Ferritin Lactate Dehydrogenase C-Reactive Protein NT-Pro-B Natriuret Pep Total Protein Albumin Triglycerides Arterial Blood Glucose Urine pH Ur Specific [place] Coronavirus (PCR) 03/28/21 03/29/21 03/29/21 23:39 04:50 04:50 WBC RBC Hgb 11.0 L Hct 34.9 L MCV MCHC RDW 15.9 H Plt Count Lymph % (Auto) [place] % (Auto) Lymph # (Auto) [place] # (Auto) Seg Neutrophils % Seg Neuts % (Manual) Lymphocytes % (Manual) Monocytes % (Manual) Nucleated RBC % Seg Neutrophils # Seg Neutrophils # Man Lymphocytes # (Manual) Monocytes # (Manual) PT INR APTT D-Dimer Heparin Anti-Xa Level ABG pH POC ABG pCO2 POC ABG pO2 ABG pO2 ABG HCO3 ABG O2 Saturation ABG Base Excess ABG Hemoglobin ABG Oxyhemoglobin ABG Sodium ABG Potassium ABG Glucose Oxyhemoglobin Sodium Potassium Chloride Carbon Dioxide 34 H BUN Creatinine 0.6 L Glucose 152 H POC Glucose 139 H Lactic Acid Calcium Phosphorus Magnesium Ferritin Lactate Dehydrogenase C-Reactive Protein NT-Pro-B Natriuret Pep Total Protein Albumin Triglycerides Arterial Blood Glucose Urine pH Ur Specific [place] Coronavirus (PCR) 03/29/21 03/29/21 03/29/21 05:25 11:34 18:02 WBC RBC Hgb Hct MCV MCHC RDW Plt Count Lymph % (Auto) [place] % (Auto) Lymph # (Auto) [place] # (Auto) Seg Neutrophils % Seg Neuts % (Manual) Lymphocytes % (Manual) Monocytes % (Manual) Nucleated RBC % Seg Neutrophils # Seg Neutrophils # Man Lymphocytes # (Manual) Monocytes # (Manual) PT INR APTT D-Dimer Heparin Anti-Xa Level ABG pH POC ABG pCO2 POC ABG pO2 ABG pO2 ABG HCO3 ABG O2 Saturation ABG Base Excess ABG Hemoglobin ABG Oxyhemoglobin ABG Sodium ABG Potassium ABG Glucose Oxyhemoglobin Sodium Potassium Chloride Carbon Dioxide BUN Creatinine Glucose POC Glucose 127 H 169 H 173 H Lactic Acid Calcium Phosphorus Magnesium Ferritin Lactate Dehydrogenase C-Reactive Protein NT-Pro-B Natriuret Pep Total Protein Albumin Triglycerides Arterial Blood Glucose Urine pH Ur Specific [place] Coronavirus (PCR) 03/29/21 03/30/21 03/30/21 21:42 00:01 05:36 WBC RBC Hgb Hct MCV MCHC RDW 16.7 H Plt Count Lymph % (Auto) [place] % (Auto) Lymph # (Auto) [place] # (Auto) Seg Neutrophils % Seg Neuts % (Manual) Lymphocytes % (Manual) Monocytes % (Manual) Nucleated RBC % Seg Neutrophils # Seg Neutrophils # Man Lymphocytes # (Manual) Monocytes # (Manual) PT INR APTT D-Dimer Heparin Anti-Xa Level ABG pH POC ABG pCO2 POC ABG pO2 ABG pO2 ABG HCO3 ABG O2 Saturation ABG Base Excess ABG Hemoglobin ABG Oxyhemoglobin ABG Sodium ABG Potassium ABG Glucose Oxyhemoglobin Sodium Potassium Chloride Carbon Dioxide BUN Creatinine Glucose POC Glucose 184 H 161 H Lactic Acid Calcium Phosphorus Magnesium Ferritin Lactate Dehydrogenase C-Reactive Protein NT-Pro-B Natriuret Pep Total Protein Albumin Triglycerides Arterial Blood Glucose Urine pH Ur Specific [place] Coronavirus (PCR) 03/30/21 03/30/21 03/30/21 05:36 06:03 11:32 WBC RBC Hgb Hct MCV MCHC RDW Plt Count Lymph % (Auto) [place] % (Auto) Lymph # (Auto) [place] # (Auto) Seg Neutrophils % Seg Neuts % (Manual) Lymphocytes % (Manual) Monocytes % (Manual) Nucleated RBC % Seg Neutrophils # Seg Neutrophils # Man Lymphocytes # (Manual) Monocytes # (Manual) PT INR APTT D-Dimer Heparin Anti-Xa Level ABG pH POC ABG pCO2 POC ABG pO2 ABG pO2 ABG HCO3 ABG O2 Saturation ABG Base Excess ABG Hemoglobin ABG Oxyhemoglobin ABG Sodium ABG Potassium ABG Glucose Oxyhemoglobin Sodium Potassium Chloride Carbon Dioxide BUN Creatinine 0.5 L Glucose 127 H POC Glucose 130 H 183 H Lactic Acid Calcium Phosphorus Magnesium Ferritin Lactate Dehydrogenase C-Reactive Protein NT-Pro-B Natriuret Pep Total Protein Albumin Triglycerides Arterial Blood Glucose Urine pH Ur Specific [place] Coronavirus (PCR) 03/30/21 03/30/21 03/30/21 15:00 16:23 21:07 WBC RBC Hgb Hct MCV MCHC RDW Plt Count Lymph % (Auto) [place] % (Auto) Lymph # (Auto) [place] # (Auto) Seg Neutrophils % Seg Neuts % (Manual) Lymphocytes % (Manual) Monocytes % (Manual) Nucleated RBC % Seg Neutrophils # Seg Neutrophils # Man Lymphocytes # (Manual) Monocytes # (Manual) PT INR APTT D-Dimer Heparin Anti-Xa Level ABG pH POC ABG pCO2 POC ABG pO2 ABG pO2 67.2 L ABG HCO3 34.9 H ABG O2 Saturation ABG Base Excess 9.1 H ABG Hemoglobin 11.6 L ABG Oxyhemoglobin ABG Sodium ABG Potassium ABG Glucose Oxyhemoglobin 93.0 L Sodium Potassium Chloride Carbon Dioxide BUN Creatinine Glucose POC Glucose 162 H 146 H Lactic Acid Calcium Phosphorus Magnesium Ferritin Lactate Dehydrogenase C-Reactive Protein NT-Pro-B Natriuret Pep Total Protein Albumin Triglycerides Arterial Blood Glucose Urine pH Ur Specific [place] Coronavirus (PCR) 03/30/21 03/31/21 03/31/21 23:23 05:44 11:19 WBC RBC Hgb Hct MCV MCHC RDW Plt Count Lymph % (Auto) [place] % (Auto) Lymph # (Auto) [place] # (Auto) Seg Neutrophils % Seg Neuts % (Manual) Lymphocytes % (Manual) Monocytes % (Manual) Nucleated RBC % Seg Neutrophils # Seg Neutrophils # Man Lymphocytes # (Manual) Monocytes # (Manual) PT INR APTT D-Dimer Heparin Anti-Xa Level ABG pH POC ABG pCO2 POC ABG pO2 ABG pO2 ABG HCO3 ABG O2 Saturation ABG Base Excess ABG Hemoglobin ABG Oxyhemoglobin ABG Sodium ABG Potassium ABG Glucose Oxyhemoglobin Sodium Potassium Chloride Carbon Dioxide BUN Creatinine Glucose POC Glucose 138 H 180 H 178 H Lactic Acid Calcium Phosphorus Magnesium Ferritin Lactate Dehydrogenase C-Reactive Protein NT-Pro-B Natriuret Pep Total Protein Albumin Triglycerides Arterial Blood Glucose Urine pH Ur Specific [place] Coronavirus (PCR) 03/31/21 03/31/21 03/31/21 12:50 13:30 16:06 WBC RBC Hgb 11.3 L Hct 35.1 L MCV MCHC RDW 16.5 H Plt Count Lymph % (Auto) 7.6 L [place] % (Auto) 9.5 H Lymph # (Auto) 0.6 L [place] # (Auto) Seg Neutrophils % 78.3 H Seg Neuts % (Manual) Lymphocytes % (Manual) Monocytes % (Manual) Nucleated RBC % Seg Neutrophils # Seg Neutrophils # Man Lymphocytes # (Manual) Monocytes # (Manual) PT INR APTT D-Dimer Heparin Anti-Xa Level ABG pH POC ABG pCO2 POC ABG pO2 ABG pO2 99.4 H ABG HCO3 34.9 H ABG O2 Saturation ABG Base Excess 8.4 H ABG Hemoglobin 11.8 L ABG Oxyhemoglobin ABG Sodium ABG Potassium ABG Glucose Oxyhemoglobin Sodium Potassium Chloride Carbon Dioxide BUN Creatinine Glucose POC Glucose 197 H Lactic Acid Calcium Phosphorus Magnesium Ferritin Lactate Dehydrogenase C-Reactive Protein NT-Pro-B Natriuret Pep Total Protein Albumin Triglycerides Arterial Blood Glucose Urine pH Ur Specific [place] Coronavirus (PCR) 03/31/21 04/01/21 04/01/21 20:51 05:37 07:16 WBC RBC 3.39 L Hgb 10.5 L Hct 31.6 L MCV MCHC RDW 16.1 H Plt Count Lymph % (Auto) [place] % (Auto) Lymph # (Auto) [place] # (Auto) Seg Neutrophils % Seg Neuts % (Manual) Lymphocytes % (Manual) Monocytes % (Manual) Nucleated RBC % Seg Neutrophils # Seg Neutrophils # Man Lymphocytes # (Manual) Monocytes # (Manual) PT INR APTT D-Dimer Heparin Anti-Xa Level ABG pH POC ABG pCO2 POC ABG pO2 ABG pO2 ABG HCO3 ABG O2 Saturation ABG Base Excess ABG Hemoglobin ABG Oxyhemoglobin ABG Sodium ABG Potassium ABG Glucose Oxyhemoglobin Sodium Potassium Chloride Carbon Dioxide BUN Creatinine Glucose POC Glucose 140 H 128 H Lactic Acid Calcium Phosphorus Magnesium Ferritin Lactate Dehydrogenase C-Reactive Protein NT-Pro-B Natriuret Pep Total Protein Albumin Triglycerides Arterial Blood Glucose Urine pH Ur Specific [place] Coronavirus (PCR) 04/01/21 04/01/21 04/01/21 07:16 11:52 16:56 WBC RBC Hgb Hct MCV MCHC RDW Plt Count Lymph % (Auto) [place] % (Auto) Lymph # (Auto) [place] # (Auto) Seg Neutrophils % Seg Neuts % (Manual) Lymphocytes % (Manual) Monocytes % (Manual) Nucleated RBC % Seg Neutrophils # Seg Neutrophils # Man Lymphocytes # (Manual) Monocytes # (Manual) PT INR APTT D-Dimer Heparin Anti-Xa Level ABG pH POC ABG pCO2 POC ABG pO2 ABG pO2 ABG HCO3 ABG O2 Saturation ABG Base Excess ABG Hemoglobin ABG Oxyhemoglobin ABG Sodium ABG Potassium ABG Glucose Oxyhemoglobin Sodium Potassium Chloride Carbon Dioxide BUN Creatinine 0.6 L Glucose 131 H POC Glucose 182 H 179 H Lactic Acid Calcium 8.3 L Phosphorus Magnesium Ferritin Lactate Dehydrogenase C-Reactive Protein NT-Pro-B Natriuret Pep Total Protein Albumin Triglycerides Arterial Blood Glucose Urine pH Ur Specific [place] Coronavirus (PCR) 04/01/21 04/01/21 04/02/21 21:30 23:40 04:26 WBC RBC 3.62 L Hgb 10.8 L Hct 33.9 L MCV MCHC RDW 16.0 H Plt Count Lymph % (Auto) [place] % (Auto) Lymph # (Auto) [place] # (Auto) Seg Neutrophils % Seg Neuts % (Manual) Lymphocytes % (Manual) Monocytes % (Manual) Nucleated RBC % Seg Neutrophils # Seg Neutrophils # Man Lymphocytes # (Manual) Monocytes # (Manual) PT INR APTT D-Dimer Heparin Anti-Xa Level ABG pH POC ABG pCO2 POC ABG pO2 ABG pO2 ABG HCO3 ABG O2 Saturation ABG Base Excess ABG Hemoglobin ABG Oxyhemoglobin ABG Sodium ABG Potassium ABG Glucose Oxyhemoglobin Sodium Potassium Chloride Carbon Dioxide BUN Creatinine Glucose POC Glucose 131 H 129 H Lactic Acid Calcium Phosphorus Magnesium Ferritin Lactate Dehydrogenase C-Reactive Protein NT-Pro-B Natriuret Pep Total Protein Albumin Triglycerides Arterial Blood Glucose Urine pH Ur Specific [place] Coronavirus (PCR) 04/02/21 04/02/21 04/02/21 04:26 05:54 11:35 WBC RBC Hgb Hct MCV MCHC RDW Plt Count Lymph % (Auto) [place] % (Auto) Lymph # (Auto) [place] # (Auto) Seg Neutrophils % Seg Neuts % (Manual) Lymphocytes % (Manual) Monocytes % (Manual) Nucleated RBC % Seg Neutrophils # Seg Neutrophils # Man Lymphocytes # (Manual) Monocytes # (Manual) PT INR APTT D-Dimer Heparin Anti-Xa Level ABG pH POC ABG pCO2 POC ABG pO2 ABG pO2 ABG HCO3 ABG O2 Saturation ABG Base Excess ABG Hemoglobin ABG Oxyhemoglobin ABG Sodium ABG Potassium ABG Glucose Oxyhemoglobin Sodium 136 L Potassium Chloride Carbon Dioxide BUN Creatinine 0.6 L Glucose 152 H POC Glucose 151 H 178 H Lactic Acid Calcium Phosphorus Magnesium Ferritin Lactate Dehydrogenase C-Reactive Protein NT-Pro-B Natriuret Pep Total Protein Albumin Triglycerides Arterial Blood Glucose Urine pH Ur Specific [place] Coronavirus (PCR) 04/02/21 04/02/2104/02/22 16:11 21:09 23:38 WBC RBC Hgb Hct MCV MCHC RDW Plt Count Lymph % (Auto) [place] % (Auto) Lymph # (Auto) [place] # (Auto) Seg Neutrophils % Seg Neuts % (Manual) Lymphocytes % (Manual) Monocytes % (Manual) Nucleated RBC % Seg Neutrophils # Seg Neutrophils # Man Lymphocytes # (Manual) Monocytes # (Manual) PT INR APTT D-Dimer Heparin Anti-Xa Level ABG pH POC ABG pCO2 POC ABG pO2 ABG pO2 ABG HCO3 ABG O2 Saturation ABG Base Excess ABG Hemoglobin ABG Oxyhemoglobin ABG Sodium ABG Potassium ABG Glucose Oxyhemoglobin Sodium Potassium Chloride Carbon Dioxide BUN Creatinine Glucose POC Glucose 186 H 145 H 152 H Lactic Acid Calcium Phosphorus Magnesium Ferritin Lactate Dehydrogenase C-Reactive Protein NT-Pro-B Natriuret Pep Total Protein Albumin Triglycerides Arterial Blood Glucose Urine pH Ur Specific [place] Coronavirus (PCR) 04/03/21 04/03/21 04/03/21 04:14 04:14 05:27 WBC RBC 3.62 L Hgb 11.0 L Hct 34.0 L MCV MCHC RDW 16.3 H Plt Count Lymph % (Auto) [place] % (Auto) Lymph # (Auto) [place] # (Auto) Seg Neutrophils % Seg Neuts % (Manual) Lymphocytes % (Manual) Monocytes % (Manual) Nucleated RBC % Seg Neutrophils # Seg Neutrophils # Man Lymphocytes # (Manual) Monocytes # (Manual) PT INR APTT D-Dimer Heparin Anti-Xa Level ABG pH POC ABG pCO2 POC ABG pO2 ABG pO2 ABG HCO3 ABG O2 Saturation ABG Base Excess ABG Hemoglobin ABG Oxyhemoglobin ABG Sodium ABG Potassium ABG Glucose Oxyhemoglobin Sodium Potassium Chloride Carbon Dioxide 31 H BUN Creatinine 0.6 L Glucose 155 H POC Glucose 165 H Lactic Acid Calcium Phosphorus Magnesium Ferritin Lactate Dehydrogenase C-Reactive Protein NT-Pro-B Natriuret Pep Total Protein Albumin Triglycerides Arterial Blood Glucose Urine pH Ur Specific [place] Coronavirus (PCR) 04/03/21 04/03/21 04/03/21 11:02 16:19 19:45 WBC RBC Hgb Hct MCV MCHC RDW Plt Count Lymph % (Auto) [place] % (Auto) Lymph # (Auto) [place] # (Auto) Seg Neutrophils % Seg Neuts % (Manual) Lymphocytes % (Manual) Monocytes % (Manual) Nucleated RBC % Seg Neutrophils # Seg Neutrophils # Man Lymphocytes # (Manual) Monocytes # (Manual) PT INR APTT D-Dimer Heparin Anti-Xa Level ABG pH POC ABG pCO2 POC ABG pO2 ABG pO2 ABG HCO3 ABG O2 Saturation ABG Base Excess ABG Hemoglobin ABG Oxyhemoglobin ABG Sodium ABG Potassium ABG Glucose Oxyhemoglobin Sodium Potassium Chloride Carbon Dioxide BUN Creatinine Glucose POC Glucose 161 H 180 H 136 H Lactic Acid Calcium Phosphorus Magnesium Ferritin Lactate Dehydrogenase C-Reactive Protein NT-Pro-B Natriuret Pep Total Protein Albumin Triglycerides Arterial Blood Glucose Urine pH Ur Specific [place] Coronavirus (PCR) 04/04/21 04/04/21 04/04/21 00:21 04:33 04:33 WBC 13.1 H RBC 3.49 L Hgb 10.3 L Hct 32.7 L MCV MCHC RDW 16.1 H Plt Count Lymph % (Auto) [place] % (Auto) Lymph # (Auto) [place] # (Auto) Seg Neutrophils % Seg Neuts % (Manual) Lymphocytes % (Manual) Monocytes % (Manual) Nucleated RBC % Seg Neutrophils # Seg Neutrophils # Man Lymphocytes # (Manual) Monocytes # (Manual) PT INR APTT D-Dimer Heparin Anti-Xa Level ABG pH POC ABG pCO2 POC ABG pO2 ABG pO2 ABG HCO3 ABG O2 Saturation ABG Base Excess ABG Hemoglobin ABG Oxyhemoglobin ABG Sodium ABG Potassium ABG Glucose Oxyhemoglobin Sodium Potassium Chloride Carbon Dioxide 31 H BUN Creatinine 0.4 L Glucose 153 H POC Glucose 140 H Lactic Acid Calcium Phosphorus Magnesium Ferritin Lactate Dehydrogenase C-Reactive Protein NT-Pro-B Natriuret Pep Total Protein Albumin Triglycerides Arterial Blood Glucose Urine pH Ur Specific [place] Coronavirus (PCR) 04/04/21 04/04/21 04/04/21 05:16 11:39 17:22 WBC RBC Hgb Hct MCV MCHC RDW Plt Count Lymph % (Auto) [place] % (Auto) Lymph # (Auto) [place] # (Auto) Seg Neutrophils % Seg Neuts % (Manual) Lymphocytes % (Manual) Monocytes % (Manual) Nucleated RBC % Seg Neutrophils # Seg Neutrophils # Man Lymphocytes # (Manual) Monocytes # (Manual) PT INR APTT D-Dimer Heparin Anti-Xa Level ABG pH POC ABG pCO2 POC ABG pO2 ABG pO2 ABG HCO3 ABG O2 Saturation ABG Base Excess ABG Hemoglobin ABG Oxyhemoglobin ABG Sodium ABG Potassium ABG Glucose Oxyhemoglobin Sodium Potassium Chloride Carbon Dioxide BUN Creatinine Glucose POC Glucose 152 H 154 H 198 H Lactic Acid Calcium Phosphorus Magnesium Ferritin Lactate Dehydrogenase C-Reactive Protein NT-Pro-B Natriuret Pep Total Protein Albumin Triglycerides Arterial Blood Glucose Urine pH Ur Specific [place] Coronavirus (PCR) 04/04/21 04/04/21 04/05/21 20:14 23:16 04:15 WBC RBC 3.21 L Hgb 10.0 L Hct 30.3 L MCV MCHC RDW 16.4 H Plt Count Lymph % (Auto) [place] % (Auto) Lymph # (Auto) [place] # (Auto) Seg Neutrophils % Seg Neuts % (Manual) Lymphocytes % (Manual) Monocytes % (Manual) Nucleated RBC % Seg Neutrophils # Seg Neutrophils # Man Lymphocytes # (Manual) Monocytes # (Manual) PT INR APTT D-Dimer Heparin Anti-Xa Level ABG pH POC ABG pCO2 POC ABG pO2 ABG pO2 ABG HCO3 ABG O2 Saturation ABG Base Excess ABG Hemoglobin ABG Oxyhemoglobin ABG Sodium ABG Potassium ABG Glucose Oxyhemoglobin Sodium Potassium Chloride Carbon Dioxide BUN Creatinine Glucose POC Glucose 161 H 139 H Lactic Acid Calcium Phosphorus Magnesium Ferritin Lactate Dehydrogenase C-Reactive Protein NT-Pro-B Natriuret Pep Total Protein Albumin Triglycerides Arterial Blood Glucose Urine pH Ur Specific [place] Coronavirus (PCR) 04/05/21 04/05/21 04/05/21 04:15 05:34 12:09 WBC RBC Hgb Hct MCV MCHC RDW Plt Count Lymph % (Auto) [place] % (Auto) Lymph # (Auto) [place] # (Auto) Seg Neutrophils % Seg Neuts % (Manual) Lymphocytes % (Manual) Monocytes % (Manual) Nucleated RBC % Seg Neutrophils # Seg Neutrophils # Man Lymphocytes # (Manual) Monocytes # (Manual) PT INR APTT D-Dimer Heparin Anti-Xa Level ABG pH POC ABG pCO2 POC ABG pO2 ABG pO2 ABG HCO3 ABG O2 Saturation ABG Base Excess ABG Hemoglobin ABG Oxyhemoglobin ABG Sodium ABG Potassium ABG Glucose Oxyhemoglobin Sodium Potassium Chloride 97.6 L Carbon Dioxide 32 H BUN Creatinine 0.5 L Glucose 147 H POC Glucose 145 H 173 H Lactic Acid Calcium Phosphorus Magnesium Ferritin Lactate Dehydrogenase C-Reactive Protein NT-Pro-B Natriuret Pep Total Protein Albumin Triglycerides Arterial Blood Glucose Urine pH Ur Specific [place] Coronavirus (PCR) 04/05/21 04/05/21 04/05/21 17:35 21:07 23:15 WBC RBC Hgb Hct MCV MCHC RDW Plt Count Lymph % (Auto) [place] % (Auto) Lymph # (Auto) [place] # (Auto) Seg Neutrophils % Seg Neuts % (Manual) Lymphocytes % (Manual) Monocytes % (Manual) Nucleated RBC % Seg Neutrophils # Seg Neutrophils # Man Lymphocytes # (Manual) Monocytes # (Manual) PT INR APTT D-Dimer Heparin Anti-Xa Level ABG pH POC ABG pCO2 POC ABG pO2 ABG pO2 ABG HCO3 ABG O2 Saturation ABG Base Excess ABG Hemoglobin ABG Oxyhemoglobin ABG Sodium ABG Potassium ABG Glucose Oxyhemoglobin Sodium Potassium Chloride Carbon Dioxide BUN Creatinine Glucose POC Glucose 143 H 157 H 171 H Lactic Acid Calcium Phosphorus Magnesium Ferritin Lactate Dehydrogenase C-Reactive Protein NT-Pro-B Natriuret Pep Total Protein Albumin Triglycerides Arterial Blood Glucose Urine pH Ur Specific [place] Coronavirus (PCR) 04/06/21 04/06/21 04/06/21 04:49 05:14 11:42 WBC RBC Hgb Hct MCV MCHC RDW Plt Count Lymph % (Auto) [place] % (Auto) Lymph # (Auto) [place] # (Auto) Seg Neutrophils % Seg Neuts % (Manual) Lymphocytes % (Manual) Monocytes % (Manual) Nucleated RBC % Seg Neutrophils # Seg Neutrophils # Man Lymphocytes # (Manual) Monocytes # (Manual) PT INR APTT D-Dimer Heparin Anti-Xa Level ABG pH POC ABG pCO2 57.4 H POC ABG pO2 55.1 L ABG pO2 ABG HCO3 ABG O2 Saturation ABG Base Excess ABG Hemoglobin 11.5 L ABG Oxyhemoglobin 87.5 L ABG Sodium ABG Potassium ABG Glucose Oxyhemoglobin Sodium Potassium Chloride Carbon Dioxide BUN Creatinine Glucose POC Glucose 145 H 171 H Lactic Acid Calcium Phosphorus Magnesium Ferritin Lactate Dehydrogenase C-Reactive Protein NT-Pro-B Natriuret Pep Total Protein Albumin Triglycerides Arterial Blood Glucose Urine pH Ur Specific [place] Coronavirus (PCR) 04/06/21 04/06/21 04/06/21 11:50 15:36 15:36 WBC RBC Hgb 10.4 L Hct 32.5 L MCV MCHC RDW Plt Count 444 H Lymph % (Auto) [place] % (Auto) Lymph # (Auto) [place] # (Auto) Seg Neutrophils % Seg Neuts % (Manual) Lymphocytes % (Manual) Monocytes % (Manual) Nucleated RBC % Seg Neutrophils # Seg Neutrophils # Man Lymphocytes # (Manual) Monocytes # (Manual) PT INR APTT 37.1 H D-Dimer Heparin Anti-Xa Level ABG pH 7.341 L POC ABG pCO2 POC ABG pO2 ABG pO2 108.9 H ABG HCO3 38.9 H ABG O2 Saturation ABG Base Excess 10.6 H ABG Hemoglobin 11.5 L ABG Oxyhemoglobin ABG Sodium ABG Potassium ABG Glucose Oxyhemoglobin Sodium Potassium Chloride Carbon Dioxide BUN Creatinine Glucose POC Glucose Lactic Acid Calcium Phosphorus Magnesium Ferritin Lactate Dehydrogenase C-Reactive Protein NT-Pro-B Natriuret Pep Total Protein Albumin Triglycerides Arterial Blood Glucose Urine pH Ur Specific [place] Coronavirus (PCR) 04/06/21 04/07/21 04/07/21 17:57 00:30 00:32 WBC RBC Hgb Hct MCV MCHC RDW Plt Count Lymph % (Auto) [place] % (Auto) Lymph # (Auto) [place] # (Auto) Seg Neutrophils % Seg Neuts % (Manual) Lymphocytes % (Manual) Monocytes % (Manual) Nucleated RBC % Seg Neutrophils # Seg Neutrophils # Man Lymphocytes # (Manual) Monocytes # (Manual) PT INR APTT D-Dimer Heparin Anti-Xa Level < 0.10 L ABG pH POC ABG pCO2 POC ABG pO2 ABG pO2 ABG HCO3 ABG O2 Saturation ABG Base Excess ABG Hemoglobin ABG Oxyhemoglobin ABG Sodium ABG Potassium ABG Glucose Oxyhemoglobin Sodium Potassium Chloride Carbon Dioxide BUN Creatinine Glucose POC Glucose 151 H 149 H Lactic Acid Calcium Phosphorus Magnesium Ferritin Lactate Dehydrogenase C-Reactive Protein NT-Pro-B Natriuret Pep Total Protein Albumin Triglycerides Arterial Blood Glucose Urine pH Ur Specific [place] Coronavirus (PCR) 04/07/21 04/07/21 04/07/21 05:34 06:08 06:08 WBC RBC 3.20 L Hgb 9.6 L Hct 29.8 L MCV MCHC RDW 16.0 H Plt Count 455 H Lymph % (Auto) [place] % (Auto) Lymph # (Auto) [place] # (Auto) Seg Neutrophils % Seg Neuts % (Manual) Lymphocytes % (Manual) Monocytes % (Manual) Nucleated RBC % Seg Neutrophils # Seg Neutrophils # Man Lymphocytes # (Manual) Monocytes # (Manual) PT INR APTT D-Dimer Heparin Anti-Xa Level ABG pH POC ABG pCO2 POC ABG pO2 ABG pO2 ABG HCO3 ABG O2 Saturation ABG Base Excess ABG Hemoglobin ABG Oxyhemoglobin ABG Sodium ABG Potassium ABG Glucose Oxyhemoglobin Sodium Potassium Chloride Carbon Dioxide 35 H BUN Creatinine 0.5 L Glucose 216 H POC Glucose 182 H Lactic Acid Calcium Phosphorus Magnesium Ferritin Lactate Dehydrogenase C-Reactive Protein NT-Pro-B Natriuret Pep Total Protein Albumin Triglycerides Arterial Blood Glucose Urine pH Ur Specific [place] Coronavirus (PCR) 04/07/21 04/07/21 04/07/21 07:55 11:57 17:12 WBC RBC Hgb Hct MCV MCHC RDW Plt Count Lymph % (Auto) [place] % (Auto) Lymph # (Auto) [place] # (Auto) Seg Neutrophils % Seg Neuts % (Manual) Lymphocytes % (Manual) Monocytes % (Manual) Nucleated RBC % Seg Neutrophils # Seg Neutrophils # Man Lymphocytes # (Manual) Monocytes # (Manual) PT INR APTT D-Dimer Heparin Anti-Xa Level < 0.10 L ABG pH POC ABG pCO2 POC ABG pO2 ABG pO2 ABG HCO3 ABG O2 Saturation ABG Base Excess ABG Hemoglobin ABG Oxyhemoglobin ABG Sodium ABG Potassium ABG Glucose Oxyhemoglobin Sodium Potassium Chloride Carbon Dioxide BUN Creatinine Glucose POC Glucose 182 H 165 H Lactic Acid Calcium Phosphorus Magnesium Ferritin Lactate Dehydrogenase C-Reactive Protein NT-Pro-B Natriuret Pep Total Protein Albumin Triglycerides Arterial Blood Glucose Urine pH Ur Specific [place] Coronavirus (PCR) 04/07/21 04/08/21 04/08/21 19:55 00:16 03:57 WBC RBC Hgb Hct MCV MCHC RDW Plt Count Lymph % (Auto) [place] % (Auto) Lymph # (Auto) [place] # (Auto) Seg Neutrophils % Seg Neuts % (Manual) Lymphocytes % (Manual) Monocytes % (Manual) Nucleated RBC % Seg Neutrophils # Seg Neutrophils # Man Lymphocytes # (Manual) Monocytes # (Manual) PT INR APTT D-Dimer Heparin Anti-Xa Level < 0.10 L ABG pH POC ABG pCO2 POC ABG pO2 ABG pO2 ABG HCO3 ABG O2 Saturation ABG Base Excess ABG Hemoglobin ABG Oxyhemoglobin ABG Sodium ABG Potassium ABG Glucose Oxyhemoglobin Sodium Potassium 5.8 H Chloride 95.5 L Carbon Dioxide 37 H BUN Creatinine 0.5 L Glucose 161 H POC Glucose 175 H Lactic Acid Calcium Phosphorus Magnesium Ferritin Lactate Dehydrogenase C-Reactive Protein NT-Pro-B Natriuret Pep Total Protein Albumin Triglycerides Arterial Blood Glucose Urine pH Ur Specific [place] Coronavirus (PCR) 04/08/21 04/08/21 04/08/21 04:00 05:43 09:26 WBC RBC 3.25 L Hgb 9.9 L Hct 30.8 L MCV 95 H MCHC RDW 16.0 H Plt Count 487 H Lymph % (Auto) [place] % (Auto) Lymph # (Auto) [place] # (Auto) Seg Neutrophils % Seg Neuts % (Manual) Lymphocytes % (Manual) Monocytes % (Manual) Nucleated RBC % Seg Neutrophils # Seg Neutrophils # Man Lymphocytes # (Manual) Monocytes # (Manual) PT INR APTT D-Dimer Heparin Anti-Xa Level ABG pH POC ABG pCO2 POC ABG pO2 ABG pO2 ABG HCO3 ABG O2 Saturation ABG Base Excess ABG Hemoglobin ABG Oxyhemoglobin ABG Sodium ABG Potassium ABG Glucose Oxyhemoglobin Sodium Potassium Chloride Carbon Dioxide BUN Creatinine Glucose POC Glucose 162 H 164 H Lactic Acid Calcium Phosphorus Magnesium Ferritin Lactate Dehydrogenase C-Reactive Protein NT-Pro-B Natriuret Pep Total Protein Albumin Triglycerides Arterial Blood Glucose Urine pH Ur Specific [place] Coronavirus (PCR) 04/08/21 04/08/21 04/08/21 11:53 17:19 20:35 WBC RBC Hgb Hct MCV MCHC RDW Plt Count Lymph % (Auto) [place] % (Auto) Lymph # (Auto) [place] # (Auto) Seg Neutrophils % Seg Neuts % (Manual) Lymphocytes % (Manual) Monocytes % (Manual) Nucleated RBC % Seg Neutrophils # Seg Neutrophils # Man Lymphocytes # (Manual) Monocytes # (Manual) PT INR APTT D-Dimer Heparin Anti-Xa Level ABG pH POC ABG pCO2 POC ABG pO2 ABG pO2 ABG HCO3 ABG O2 Saturation ABG Base Excess ABG Hemoglobin ABG Oxyhemoglobin ABG Sodium ABG Potassium ABG Glucose Oxyhemoglobin Sodium Potassium Chloride Carbon Dioxide BUN Creatinine Glucose POC Glucose 170 H 157 H 190 H Lactic Acid Calcium Phosphorus Magnesium Ferritin Lactate Dehydrogenase C-Reactive Protein NT-Pro-B Natriuret Pep Total Protein Albumin Triglycerides Arterial Blood Glucose Urine pH Ur Specific [place] Coronavirus (PCR) 04/08/21 04/09/21 04/09/21 23:52 04:21 04:21 WBC 11.4 H RBC 2.97 L Hgb 8.9 L Hct 27.8 L MCV MCHC RDW 15.8 H Plt Count 485 H Lymph % (Auto) [place] % (Auto) Lymph # (Auto) [place] # (Auto) Seg Neutrophils % Seg Neuts % (Manual) Lymphocytes % (Manual) Monocytes % (Manual) Nucleated RBC % Seg Neutrophils # Seg Neutrophils # Man Lymphocytes # (Manual) Monocytes # (Manual) PT INR APTT D-Dimer Heparin Anti-Xa Level ABG pH POC ABG pCO2 POC ABG pO2 ABG pO2 ABG HCO3 ABG O2 Saturation ABG Base Excess ABG Hemoglobin ABG Oxyhemoglobin ABG Sodium ABG Potassium ABG Glucose Oxyhemoglobin Sodium Potassium Chloride 97.1 L Carbon Dioxide 40 H BUN 21 H Creatinine 0.5 L Glucose 149 H POC Glucose 170 H Lactic Acid Calcium Phosphorus 1.90 L D Magnesium Ferritin Lactate Dehydrogenase C-Reactive Protein NT-Pro-B Natriuret Pep Total Protein Albumin Triglycerides Arterial Blood Glucose Urine pH Ur Specific [place] Coronavirus (PCR) 04/09/21 04/09/21 04/09/21 05:27 11:55 17:11 WBC RBC Hgb Hct MCV MCHC RDW Plt Count Lymph % (Auto) [place] % (Auto) Lymph # (Auto) [place] # (Auto) Seg Neutrophils % Seg Neuts % (Manual) Lymphocytes % (Manual) Monocytes % (Manual) Nucleated RBC % Seg Neutrophils # Seg Neutrophils # Man Lymphocytes # (Manual) Monocytes # (Manual) PT INR APTT D-Dimer Heparin Anti-Xa Level ABG pH POC ABG pCO2 POC ABG pO2 ABG pO2 ABG HCO3 ABG O2 Saturation ABG Base Excess ABG Hemoglobin ABG Oxyhemoglobin ABG Sodium ABG Potassium ABG Glucose Oxyhemoglobin Sodium Potassium Chloride Carbon Dioxide BUN Creatinine Glucose POC Glucose 144 H 190 H 163 H Lactic Acid Calcium Phosphorus Magnesium Ferritin Lactate Dehydrogenase C-Reactive Protein NT-Pro-B Natriuret Pep Total Protein Albumin Triglycerides Arterial Blood Glucose Urine pH Ur Specific [place] Coronavirus (PCR) 04/09/21 04/09/21 04/09/21 20:10 21:12 23:33 WBC RBC Hgb Hct MCV MCHC RDW Plt Count Lymph % (Auto) [place] % (Auto) Lymph # (Auto) [place] # (Auto) Seg Neutrophils % Seg Neuts % (Manual) Lymphocytes % (Manual) Monocytes % (Manual) Nucleated RBC % Seg Neutrophils # Seg Neutrophils # Man Lymphocytes # (Manual) Monocytes # (Manual) PT INR APTT D-Dimer Heparin Anti-Xa Level ABG pH POC ABG pCO2 POC ABG pO2 ABG pO2 68.1 L ABG HCO3 41.3 H ABG O2 Saturation ABG Base Excess 14.6 H ABG Hemoglobin 10.2 L ABG Oxyhemoglobin ABG Sodium ABG Potassium ABG Glucose Oxyhemoglobin 94.7 L Sodium Potassium Chloride Carbon Dioxide BUN Creatinine Glucose POC Glucose 163 H 164 H Lactic Acid Calcium Phosphorus Magnesium Ferritin Lactate Dehydrogenase C-Reactive Protein NT-Pro-B Natriuret Pep Total Protein Albumin Triglycerides Arterial Blood Glucose Urine pH Ur Specific [place] Coronavirus (PCR) 04/10/21 04/10/21 04/10/21 05:26 11:41 13:00 WBC RBC 3.09 L Hgb 9.3 L Hct 28.3 L MCV MCHC RDW 15.8 H Plt Count 480 H Lymph % (Auto) [place] % (Auto) Lymph # (Auto) [place] # (Auto) Seg Neutrophils % Seg Neuts % (Manual) Lymphocytes % (Manual) Monocytes % (Manual) Nucleated RBC % Seg Neutrophils # Seg Neutrophils # Man Lymphocytes # (Manual) Monocytes # (Manual) PT INR APTT D-Dimer Heparin Anti-Xa Level ABG pH POC ABG pCO2 POC ABG pO2 ABG pO2 ABG HCO3 ABG O2 Saturation ABG Base Excess ABG Hemoglobin ABG Oxyhemoglobin ABG Sodium ABG Potassium ABG Glucose Oxyhemoglobin Sodium Potassium Chloride Carbon Dioxide BUN Creatinine Glucose POC Glucose 172 H 150 H Lactic Acid Calcium Phosphorus Magnesium Ferritin Lactate Dehydrogenase C-Reactive Protein NT-Pro-B Natriuret Pep Total Protein Albumin Triglycerides Arterial Blood Glucose Urine pH Ur Specific [place] Coronavirus (PCR) 04/10/21 04/10/21 04/10/21 13:00 17:46 21:37 WBC RBC Hgb Hct MCV MCHC RDW Plt Count Lymph % (Auto) [place] % (Auto) Lymph # (Auto) [place] # (Auto) Seg Neutrophils % Seg Neuts % (Manual) Lymphocytes % (Manual) Monocytes % (Manual) Nucleated RBC % Seg Neutrophils # Seg Neutrophils # Man Lymphocytes # (Manual) Monocytes # (Manual) PT INR APTT D-Dimer Heparin Anti-Xa Level ABG pH POC ABG pCO2 POC ABG pO2 ABG pO2 ABG HCO3 ABG O2 Saturation ABG Base Excess ABG Hemoglobin ABG Oxyhemoglobin ABG Sodium ABG Potassium ABG Glucose Oxyhemoglobin Sodium Potassium Chloride 96.4 L Carbon Dioxide 34 H BUN Creatinine 0.5 L Glucose 165 H POC Glucose 165 H 166 H Lactic Acid Calcium Phosphorus Magnesium Ferritin Lactate Dehydrogenase C-Reactive Protein NT-Pro-B Natriuret Pep Total Protein Albumin Triglycerides Arterial Blood Glucose Urine pH Ur Specific [place] Coronavirus (PCR) 04/10/21 04/11/21 04/11/21 23:56 04:30 05:39 WBC 11.5 H RBC 3.02 L Hgb 8.9 L Hct 27.8 L MCV MCHC RDW 16.0 H Plt Count 505 H Lymph % (Auto) [place] % (Auto) Lymph # (Auto) [place] # (Auto) Seg Neutrophils % Seg Neuts % (Manual) Lymphocytes % (Manual) Monocytes % (Manual) Nucleated RBC % Seg Neutrophils # Seg Neutrophils # Man Lymphocytes # (Manual) Monocytes # (Manual) PT INR APTT D-Dimer Heparin Anti-Xa Level ABG pH POC ABG pCO2 POC ABG pO2 ABG pO2 ABG HCO3 ABG O2 Saturation ABG Base Excess ABG Hemoglobin ABG Oxyhemoglobin ABG Sodium ABG Potassium ABG Glucose Oxyhemoglobin Sodium Potassium Chloride Carbon Dioxide BUN Creatinine Glucose POC Glucose 156 H 164 H Lactic Acid Calcium Phosphorus Magnesium Ferritin Lactate Dehydrogenase C-Reactive Protein NT-Pro-B Natriuret Pep Total Protein Albumin Triglycerides Arterial Blood Glucose Urine pH Ur Specific [place] Coronavirus (PCR) 04/11/21 04/11/21 04/11/21 06:47 06:47 11:29 WBC RBC 3.35 L Hgb 9.8 L Hct 30.7 L MCV MCHC RDW 16.3 H Plt Count 520 H Lymph % (Auto) [place] % (Auto) Lymph # (Auto) [place] # (Auto) Seg Neutrophils % Seg Neuts % (Manual) 76.0 H Lymphocytes % (Manual) 10.0 L Monocytes % (Manual) Nucleated RBC % Seg Neutrophils # Seg Neutrophils # Man 8.3 H Lymphocytes # (Manual) 1.1 L Monocytes # (Manual) PT INR APTT D-Dimer Heparin Anti-Xa Level ABG pH POC ABG pCO2 POC ABG pO2 ABG pO2 ABG HCO3 ABG O2 Saturation ABG Base Excess ABG Hemoglobin ABG Oxyhemoglobin ABG Sodium ABG Potassium ABG Glucose Oxyhemoglobin Sodium Potassium Chloride 97.7 L Carbon Dioxide 34 H BUN Creatinine 0.4 L Glucose 178 H POC Glucose 170 H Lactic Acid Calcium Phosphorus Magnesium Ferritin Lactate Dehydrogenase C-Reactive Protein NT-Pro-B Natriuret Pep Total Protein Albumin Triglycerides Arterial Blood Glucose Urine pH Ur Specific [place] Coronavirus (PCR) 04/11/21 04/11/21 04/11/21 18:17 18:17 18:17 WBC RBC 3.22 L Hgb 9.5 L Hct 29.8 L MCV MCHC RDW 16.0 H Plt Count Lymph % (Auto) [place] % (Auto) Lymph # (Auto) [place] # (Auto) Seg Neutrophils % Seg Neuts % (Manual) Lymphocytes % (Manual) Monocytes % (Manual) Nucleated RBC % Seg Neutrophils # Seg Neutrophils # Man Lymphocytes # (Manual) Monocytes # (Manual) PT INR APTT 61.1 H* D-Dimer Heparin Anti-Xa Level ABG pH POC ABG pCO2 POC ABG pO2 ABG pO2 ABG HCO3 ABG O2 Saturation ABG Base Excess ABG Hemoglobin ABG Oxyhemoglobin ABG Sodium ABG Potassium ABG Glucose Oxyhemoglobin Sodium Potassium Chloride Carbon Dioxide BUN Creatinine 0.3 L Glucose POC Glucose Lactic Acid Calcium Phosphorus Magnesium Ferritin Lactate Dehydrogenase C-Reactive Protein NT-Pro-B Natriuret Pep Total Protein Albumin Triglycerides Arterial Blood Glucose Urine pH Ur Specific [place] Coronavirus (PCR) 04/11/21 04/12/21 04/12/21 18:25 00:19 05:11 WBC RBC 2.92 L Hgb 8.6 L Hct 26.9 L MCV MCHC RDW 16.3 H Plt Count 460 H Lymph % (Auto) [place] % (Auto) Lymph # (Auto) [place] # (Auto) Seg Neutrophils % Seg Neuts % (Manual) Lymphocytes % (Manual) Monocytes % (Manual) Nucleated RBC % Seg Neutrophils # Seg Neutrophils # Man Lymphocytes # (Manual) Monocytes # (Manual) PT INR APTT D-Dimer Heparin Anti-Xa Level ABG pH POC ABG pCO2 POC ABG pO2 ABG pO2 ABG HCO3 ABG O2 Saturation ABG Base Excess ABG Hemoglobin ABG Oxyhemoglobin ABG Sodium ABG Potassium ABG Glucose Oxyhemoglobin Sodium Potassium Chloride Carbon Dioxide BUN Creatinine Glucose POC Glucose 167 H 128 H Lactic Acid Calcium Phosphorus Magnesium Ferritin Lactate Dehydrogenase C-Reactive Protein NT-Pro-B Natriuret Pep Total Protein Albumin Triglycerides Arterial Blood Glucose Urine pH Ur Specific [place] Coronavirus (PCR) 04/12/21 04/12/21 04/12/21 05:11 05:11 06:23 WBC RBC Hgb Hct MCV MCHC RDW Plt Count Lymph % (Auto) [place] % (Auto) Lymph # (Auto) [place] # (Auto) Seg Neutrophils % Seg Neuts % (Manual) Lymphocytes % (Manual) Monocytes % (Manual) Nucleated RBC % Seg Neutrophils # Seg Neutrophils # Man Lymphocytes # (Manual) Monocytes # (Manual) PT INR APTT D-Dimer Heparin Anti-Xa Level 1.03 H ABG pH POC ABG pCO2 POC ABG pO2 ABG pO2 ABG HCO3 ABG O2 Saturation ABG Base Excess ABG Hemoglobin ABG Oxyhemoglobin ABG Sodium ABG Potassium ABG Glucose Oxyhemoglobin Sodium Potassium Chloride Carbon Dioxide 34 H BUN Creatinine 0.3 L Glucose 153 H POC Glucose 162 H Lactic Acid Calcium Phosphorus Magnesium Ferritin Lactate Dehydrogenase C-Reactive Protein NT-Pro-B Natriuret Pep Total Protein Albumin Triglycerides Arterial Blood Glucose Urine pH Ur Specific [place] Coronavirus (PCR) 04/12/21 04/12/21 04/12/21 09:45 11:08 15:56 WBC RBC Hgb Hct MCV MCHC RDW Plt Count Lymph % (Auto) [place] % (Auto) Lymph # (Auto) [place] # (Auto) Seg Neutrophils % Seg Neuts % (Manual) Lymphocytes % (Manual) Monocytes % (Manual) Nucleated RBC % Seg Neutrophils # Seg Neutrophils # Man Lymphocytes # (Manual) Monocytes # (Manual) PT INR APTT D-Dimer Heparin Anti-Xa Level ABG pH POC ABG pCO2 POC ABG pO2 ABG pO2 70.8 L ABG HCO3 41.0 H ABG O2 Saturation ABG Base Excess 13.7 H ABG Hemoglobin 8.3 L ABG Oxyhemoglobin ABG Sodium ABG Potassium ABG Glucose Oxyhemoglobin 94.0 L Sodium Potassium Chloride Carbon Dioxide BUN Creatinine Glucose POC Glucose 174 H 146 H Lactic Acid Calcium Phosphorus Magnesium Ferritin Lactate Dehydrogenase C-Reactive Protein NT-Pro-B Natriuret Pep Total Protein Albumin Triglycerides Arterial Blood Glucose Urine pH Ur Specific [place] Coronavirus (PCR) 04/12/21 04/12/21 04/13/21 21:55 23:25 04:34 WBC 12.5 H RBC 2.97 L Hgb 8.9 L Hct 27.3 L MCV MCHC RDW 16.4 H Plt Count 470 H Lymph % (Auto) [place] % (Auto) Lymph # (Auto) [place] # (Auto) Seg Neutrophils % Seg Neuts % (Manual) Lymphocytes % (Manual) Monocytes % (Manual) Nucleated RBC % Seg Neutrophils # Seg Neutrophils # Man Lymphocytes # (Manual) Monocytes # (Manual) PT INR APTT D-Dimer Heparin Anti-Xa Level ABG pH POC ABG pCO2 POC ABG pO2 ABG pO2 ABG HCO3 ABG O2 Saturation ABG Base Excess ABG Hemoglobin ABG Oxyhemoglobin ABG Sodium ABG Potassium ABG Glucose Oxyhemoglobin Sodium Potassium Chloride Carbon Dioxide BUN Creatinine Glucose POC Glucose 142 H 170 H Lactic Acid Calcium Phosphorus Magnesium Ferritin Lactate Dehydrogenase C-Reactive Protein NT-Pro-B Natriuret Pep Total Protein Albumin Triglycerides Arterial Blood Glucose Urine pH Ur Specific [place] Coronavirus (PCR) 04/13/21 04/13/21 04/13/21 04:34 05:17 11:14 WBC RBC Hgb Hct MCV MCHC RDW Plt Count Lymph % (Auto) [place] % (Auto) Lymph # (Auto) [place] # (Auto) Seg Neutrophils % Seg Neuts % (Manual) Lymphocytes % (Manual) Monocytes % (Manual) Nucleated RBC % Seg Neutrophils # Seg Neutrophils # Man Lymphocytes # (Manual) Monocytes # (Manual) PT INR APTT D-Dimer Heparin Anti-Xa Level ABG pH POC ABG pCO2 POC ABG pO2 ABG pO2 ABG HCO3 ABG O2 Saturation ABG Base Excess ABG Hemoglobin ABG Oxyhemoglobin ABG Sodium ABG Potassium ABG Glucose Oxyhemoglobin Sodium Potassium Chloride 96.6 L Carbon Dioxide 41 H* D BUN Creatinine 0.3 L Glucose 171 H POC Glucose 141 H 149 H Lactic Acid Calcium Phosphorus Magnesium Ferritin Lactate Dehydrogenase C-Reactive Protein NT-Pro-B Natriuret Pep Total Protein Albumin Triglycerides Arterial Blood Glucose Urine pH Ur Specific [place] Coronavirus (PCR) 04/13/21 04/13/21 04/14/21 15:51 23:35 04:32 WBC 13.8 H RBC 2.64 L Hgb 8.0 L Hct 24.1 L MCV MCHC RDW 16.1 H Plt Count Lymph % (Auto) [place] % (Auto) Lymph # (Auto) [place] # (Auto) Seg Neutrophils % Seg Neuts % (Manual) Lymphocytes % (Manual) Monocytes % (Manual) Nucleated RBC % Seg Neutrophils # Seg Neutrophils # Man Lymphocytes # (Manual) Monocytes # (Manual) PT INR APTT D-Dimer Heparin Anti-Xa Level ABG pH POC ABG pCO2 POC ABG pO2 ABG pO2 ABG HCO3 ABG O2 Saturation ABG Base Excess ABG Hemoglobin ABG Oxyhemoglobin ABG Sodium ABG Potassium ABG Glucose Oxyhemoglobin Sodium Potassium Chloride Carbon Dioxide BUN Creatinine Glucose POC Glucose 136 H 167 H Lactic Acid Calcium Phosphorus Magnesium Ferritin Lactate Dehydrogenase C-Reactive Protein NT-Pro-B Natriuret Pep Total Protein Albumin Triglycerides Arterial Blood Glucose Urine pH Ur Specific [place] Coronavirus (PCR) 04/14/21 04/14/21 04/14/21 04:32 05:18 11:03 WBC RBC Hgb Hct MCV MCHC RDW Plt Count Lymph % (Auto) [place] % (Auto) Lymph # (Auto) [place] # (Auto) Seg Neutrophils % Seg Neuts % (Manual) Lymphocytes % (Manual) Monocytes % (Manual) Nucleated RBC % Seg Neutrophils # Seg Neutrophils # Man Lymphocytes # (Manual) Monocytes # (Manual) PT INR APTT D-Dimer Heparin Anti-Xa Level ABG pH POC ABG pCO2 POC ABG pO2 ABG pO2 ABG HCO3 ABG O2 Saturation ABG Base Excess ABG Hemoglobin ABG Oxyhemoglobin ABG Sodium ABG Potassium ABG Glucose Oxyhemoglobin Sodium Potassium Chloride 95.5 L Carbon Dioxide 38 H BUN Creatinine 0.4 L Glucose 141 H POC Glucose 140 H 143 H Lactic Acid Calcium Phosphorus Magnesium Ferritin Lactate Dehydrogenase C-Reactive Protein NT-Pro-B Natriuret Pep Total Protein Albumin Triglycerides Arterial Blood Glucose Urine pH Ur Specific [place] Coronavirus (PCR) 04/14/21 04/14/21 04/14/21 16:38 23:46 Unknown WBC RBC Hgb Hct MCV MCHC RDW Plt Count Lymph % (Auto) [place] % (Auto) Lymph # (Auto) [place] # (Auto) Seg Neutrophils % Seg Neuts % (Manual) Lymphocytes % (Manual) Monocytes % (Manual) Nucleated RBC % Seg Neutrophils # Seg Neutrophils # Man Lymphocytes # (Manual) Monocytes # (Manual) PT INR APTT D-Dimer Heparin Anti-Xa Level ABG pH POC ABG pCO2 POC ABG pO2 ABG pO2 ABG HCO3 ABG O2 Saturation ABG Base Excess ABG Hemoglobin ABG Oxyhemoglobin ABG Sodium ABG Potassium ABG Glucose Oxyhemoglobin Sodium Potassium Chloride Carbon Dioxide BUN Creatinine Glucose POC Glucose 157 H 155 H Lactic Acid Calcium Phosphorus Magnesium Ferritin Lactate Dehydrogenase C-Reactive Protein NT-Pro-B Natriuret Pep Total Protein Albumin Triglycerides Arterial Blood Glucose Urine pH 8.0 H Ur Specific [place] Coronavirus (PCR) 04/15/21 04/15/21 04/15/21 04:44 04:44 05:52 WBC 15.8 H RBC 2.96 L Hgb 8.9 L Hct 27.1 L MCV MCHC RDW 16.5 H Plt Count 507 H Lymph % (Auto) [place] % (Auto) Lymph # (Auto) [place] # (Auto) Seg Neutrophils % Seg Neuts % (Manual) Lymphocytes % (Manual) Monocytes % (Manual) Nucleated RBC % Seg Neutrophils # Seg Neutrophils # Man Lymphocytes # (Manual) Monocytes # (Manual) PT INR APTT D-Dimer Heparin Anti-Xa Level ABG pH POC ABG pCO2 POC ABG pO2 ABG pO2 ABG HCO3 ABG O2 Saturation ABG Base Excess ABG Hemoglobin ABG Oxyhemoglobin ABG Sodium ABG Potassium ABG Glucose Oxyhemoglobin Sodium Potassium Chloride 96.9 L Carbon Dioxide 38 H BUN Creatinine 0.4 L Glucose 163 H POC Glucose 167 H Lactic Acid Calcium Phosphorus Magnesium Ferritin Lactate Dehydrogenase C-Reactive Protein NT-Pro-B Natriuret Pep Total Protein Albumin Triglycerides Arterial Blood Glucose Urine pH Ur Specific [place] Coronavirus (PCR) 04/15/21 04/15/21 04/15/21 11:35 17:20 18:10 WBC RBC Hgb Hct MCV MCHC RDW Plt Count Lymph % (Auto) [place] % (Auto) Lymph # (Auto) [place] # (Auto) Seg Neutrophils % Seg Neuts % (Manual) Lymphocytes % (Manual) Monocytes % (Manual) Nucleated RBC % Seg Neutrophils # Seg Neutrophils # Man Lymphocytes # (Manual) Monocytes # (Manual) PT INR APTT D-Dimer Heparin Anti-Xa Level ABG pH 7.477 H POC ABG pCO2 POC ABG pO2 ABG pO2 ABG HCO3 40.6 H ABG O2 Saturation ABG Base Excess 15.2 H ABG Hemoglobin 9.0 L ABG Oxyhemoglobin ABG Sodium ABG Potassium ABG Glucose Oxyhemoglobin 94.7 L Sodium Potassium Chloride Carbon Dioxide BUN Creatinine Glucose POC Glucose 179 H 165 H Lactic Acid Calcium Phosphorus Magnesium Ferritin Lactate Dehydrogenase C-Reactive Protein NT-Pro-B Natriuret Pep Total Protein Albumin Triglycerides Arterial Blood Glucose Urine pH Ur Specific [place] Coronavirus (PCR) 04/15/21 04/16/21 04/16/21 23:39 04:33 04:33 WBC 13.1 H RBC 3.26 L Hgb 9.5 L Hct 30.2 L MCV MCHC 31 L RDW 16.2 H Plt Count Lymph % (Auto) [place] % (Auto) Lymph # (Auto) [place] # (Auto) Seg Neutrophils % Seg Neuts % (Manual) Lymphocytes % (Manual) Monocytes % (Manual) Nucleated RBC % Seg Neutrophils # Seg Neutrophils # Man Lymphocytes # (Manual) Monocytes # (Manual) PT INR APTT D-Dimer Heparin Anti-Xa Level ABG pH POC ABG pCO2 POC ABG pO2 ABG pO2 ABG HCO3 ABG O2 Saturation ABG Base Excess ABG Hemoglobin ABG Oxyhemoglobin ABG Sodium ABG Potassium ABG Glucose Oxyhemoglobin Sodium Potassium Chloride 95.8 L Carbon Dioxide 34 H BUN 24 H Creatinine 0.4 L Glucose 153 H POC Glucose 155 H Lactic Acid Calcium Phosphorus Magnesium 2.40 H Ferritin Lactate Dehydrogenase C-Reactive Protein NT-Pro-B Natriuret Pep Total Protein Albumin Triglycerides Arterial Blood Glucose Urine pH Ur Specific [place] Coronavirus (PCR) 04/16/21 04/16/21 04/16/21 04:55 05:29 11:02 WBC RBC Hgb Hct MCV MCHC RDW Plt Count Lymph % (Auto) [place] % (Auto) Lymph # (Auto) [place] # (Auto) Seg Neutrophils % Seg Neuts % (Manual) Lymphocytes % (Manual) Monocytes % (Manual) Nucleated RBC % Seg Neutrophils # Seg Neutrophils # Man Lymphocytes # (Manual) Monocytes # (Manual) PT INR APTT D-Dimer Heparin Anti-Xa Level ABG pH 7.487 H POC ABG pCO2 POC ABG pO2 ABG pO2 75.4 L ABG HCO3 40.6 H ABG O2 Saturation ABG Base Excess 15.3 H ABG Hemoglobin 8.9 L ABG Oxyhemoglobin ABG Sodium ABG Potassium ABG Glucose Oxyhemoglobin Sodium Potassium Chloride Carbon Dioxide BUN Creatinine Glucose POC Glucose 168 H 170 H Lactic Acid Calcium Phosphorus Magnesium Ferritin Lactate Dehydrogenase C-Reactive Protein NT-Pro-B Natriuret Pep Total Protein Albumin Triglycerides Arterial Blood Glucose Urine pH Ur Specific [place] Coronavirus (PCR) 04/16/21 04/16/21 04/17/21 16:13 23:41 04:25 WBC 12.5 H RBC 3.00 L Hgb 8.9 L Hct 27.2 L MCV MCHC RDW 16.0 H Plt Count Lymph % (Auto) [place] % (Auto) Lymph # (Auto) [place] # (Auto) Seg Neutrophils % Seg Neuts % (Manual) Lymphocytes % (Manual) Monocytes % (Manual) Nucleated RBC % Seg Neutrophils # Seg Neutrophils # Man Lymphocytes # (Manual) Monocytes # (Manual) PT INR APTT D-Dimer Heparin Anti-Xa Level ABG pH POC ABG pCO2 POC ABG pO2 ABG pO2 ABG HCO3 ABG O2 Saturation ABG Base Excess ABG Hemoglobin ABG Oxyhemoglobin ABG Sodium ABG Potassium ABG Glucose Oxyhemoglobin Sodium Potassium Chloride Carbon Dioxide BUN Creatinine Glucose POC Glucose 167 H 150 H Lactic Acid Calcium Phosphorus Magnesium Ferritin Lactate Dehydrogenase C-Reactive Protein NT-Pro-B Natriuret Pep Total Protein Albumin Triglycerides Arterial Blood Glucose Urine pH Ur Specific [place] Coronavirus (PCR) 04/17/21 04/17/21 04/17/21 04:25 05:23 11:18 WBC RBC Hgb Hct MCV MCHC RDW Plt Count Lymph % (Auto) [place] % (Auto) Lymph # (Auto) [place] # (Auto) Seg Neutrophils % Seg Neuts % (Manual) Lymphocytes % (Manual) Monocytes % (Manual) Nucleated RBC % Seg Neutrophils # Seg Neutrophils # Man Lymphocytes # (Manual) Monocytes # (Manual) PT INR APTT D-Dimer Heparin Anti-Xa Level ABG pH POC ABG pCO2 POC ABG pO2 ABG pO2 ABG HCO3 ABG O2 Saturation ABG Base Excess ABG Hemoglobin ABG Oxyhemoglobin ABG Sodium ABG Potassium ABG Glucose Oxyhemoglobin Sodium 136 L Potassium Chloride 92.4 L Carbon Dioxide 36 H BUN 23 H Creatinine 0.4 L Glucose 145 H POC Glucose 128 H 163 H Lactic Acid Calcium Phosphorus Magnesium Ferritin Lactate Dehydrogenase C-Reactive Protein NT-Pro-B Natriuret Pep Total Protein Albumin Triglycerides Arterial Blood Glucose Urine pH Ur Specific [place] Coronavirus (PCR) 04/17/21 04/17/21 04/18/21 16:50 21:04 00:18 WBC RBC Hgb Hct MCV MCHC RDW Plt Count Lymph % (Auto) [place] % (Auto) Lymph # (Auto) [place] # (Auto) Seg Neutrophils % Seg Neuts % (Manual) Lymphocytes % (Manual) Monocytes % (Manual) Nucleated RBC % Seg Neutrophils # Seg Neutrophils # Man Lymphocytes # (Manual) Monocytes # (Manual) PT INR APTT D-Dimer Heparin Anti-Xa Level ABG pH POC ABG pCO2 POC ABG pO2 ABG pO2 ABG HCO3 ABG O2 Saturation ABG Base Excess ABG Hemoglobin ABG Oxyhemoglobin ABG Sodium ABG Potassium ABG Glucose Oxyhemoglobin Sodium Potassium Chloride Carbon Dioxide BUN Creatinine Glucose POC Glucose 137 H 186 H 194 H Lactic Acid Calcium Phosphorus Magnesium Ferritin Lactate Dehydrogenase C-Reactive Protein NT-Pro-B Natriuret Pep Total Protein Albumin Triglycerides Arterial Blood Glucose Urine pH Ur Specific [place] Coronavirus (PCR) 04/18/21 04/18/21 04/18/21 04:20 04:20 05:21 WBC 14.2 H RBC 2.92 L Hgb 8.5 L Hct 26.3 L MCV MCHC RDW 16.1 H Plt Count Lymph % (Auto) [place] % (Auto) Lymph # (Auto) [place] # (Auto) Seg Neutrophils % Seg Neuts % (Manual) Lymphocytes % (Manual) Monocytes % (Manual) Nucleated RBC % Seg Neutrophils # Seg Neutrophils # Man Lymphocytes # (Manual) Monocytes # (Manual) PT INR APTT D-Dimer Heparin Anti-Xa Level ABG pH POC ABG pCO2 POC ABG pO2 ABG pO2 ABG HCO3 ABG O2 Saturation ABG Base Excess ABG Hemoglobin ABG Oxyhemoglobin ABG Sodium ABG Potassium ABG Glucose Oxyhemoglobin Sodium Potassium Chloride 95.7 L Carbon Dioxide 33 H BUN 21 H Creatinine 0.3 L Glucose 120 H POC Glucose 107 H Lactic Acid Calcium Phosphorus Magnesium Ferritin Lactate Dehydrogenase C-Reactive Protein NT-Pro-B Natriuret Pep Total Protein Albumin Triglycerides Arterial Blood Glucose Urine pH Ur Specific [place] Coronavirus (PCR) 04/18/21 05:26 WBC RBC Hgb Hct MCV MCHC RDW Plt Count Lymph % (Auto) [place] % (Auto) Lymph # (Auto) [place] # (Auto) Seg Neutrophils % Seg Neuts % (Manual) Lymphocytes % (Manual) Monocytes % (Manual) Nucleated RBC % Seg Neutrophils # Seg Neutrophils # Man Lymphocytes # (Manual) Monocytes # (Manual) PT INR APTT D-Dimer Heparin Anti-Xa Level ABG pH POC ABG pCO2 POC ABG pO2 ABG pO2 ABG HCO3 ABG O2 Saturation ABG Base Excess ABG Hemoglobin ABG Oxyhemoglobin ABG Sodium ABG Potassium ABG Glucose Oxyhemoglobin Sodium Potassium Chloride Carbon Dioxide BUN Creatinine Glucose POC Glucose 111 H Lactic Acid Calcium Phosphorus Magnesium Ferritin Lactate Dehydrogenase C-Reactive Protein NT-Pro-B Natriuret Pep Total Protein Albumin Triglycerides Arterial Blood Glucose Urine pH Ur Specific [place] Coronavirus (PCR) Chest x-ray: pending Allied health notes reviewed: nursing
[2021-04-18] MEDS ORDERED: MIDAZOLAM 5 MG/5 ML INJ MDV IV ONE ×2 (11:29→12:00)
[2021-04-18 12:12] LABS: ABG Base Excess 11.2 mmol/L (-2.0-3.0); ABG HCO3 36.2 mmol/L (20.0-26.0); ABG Methemoglobin 0.5 % (0.0-1.5); ABG PCO2 50.9 mm Hg; ABG PH 7.469 pH Units (7.350-7.450); ABG PO2 108.9 mm Hg (80.0-90.0)
[2021-04-18] MEDS ORDERED: MIDAZOLAM 5 MG/5 ML INJ MDV IV NR (14:00)
--- NOTE | 2021-04-18 14:22 | Magnetic Resonance Report ---
MRI BRAIN 04/18/2021 INDICATION / CLINICAL INFORMATION: Encephalopathy, Technologist note: PATIENT MOTION, BEST POSSIBLE EXAM, REPEATED SCANS Patient given meds during scan to calm and continued to move.. TECHNIQUE: Multiplanar, multisequence MR images of the brain were obtained. COMPARISON: None available. FINDINGS: BRAIN / INTRACRANIAL CONTENTS: Unenhanced MR images of the brain were obtained. There is prominent patient motion artifact varying degrees on all of these images. There is no evidence of acute abnormality. Ventricles and sulci are within normal limits of size and shape for a patient of this age. There is no evidence of acute ischemic injury, hemorrhage, or mass. There are no abnormal extra-axial fluid collections. EXTRACRANIAL: Unremarkable CRANIOCERVICAL JUNCTION: No significant abnormality. VASCULAR FLOW-VOIDS: No significant abnormality. Incidental note is made of partial opacification of mastoid air cells bilaterally, somewhat more ext ensively on the right. There is no definite evidence of fluid within the middle ear cavity. IMPRESSION: Exam limited by patient motion artifact. No gross evidence of acute or significant intracranial abnormality. Signer Name: Sancho Bond MD Signed: 04/18/2021 2:18 PM Workstation Name: [id number]
--- NOTE | 2021-04-18 16:01 | Progress Note ---
Assessment and Plan Cultures: SARS CoV2 PCR: positive 03/08/2021 blood culture: no growth 03/10/2021 sputum culture: Usual respiratory marlyn 03/16/2021 blood culture: In process 03/18/2021 sputum culture: Stenotrophomonas 04/15/21 sputum culture: Pending A/P: 61-year-old male with diabetes, hypertension admitted to the hospital with complaints of shortness of breath and feeling weak for the last 1 week: #Sepsis secondary to bilateral pneumonia: secondary to COVID-19. Elevated inflammatory markers. WBC 22.6, creatinine 1.3, ferritin 877, CRP 18.0, LDH 624, procalcitonin 0.18. D-dimer >10k. CTA negative for pulmonary embolism, severe patchy groundglass opacities. #New fever: probably COVID related. #Acute hypoxic respiratory failure: initially required BiPAP, now intubated, on the vent. #DM #HTN Recs: -Completed Bactrim for Stenotrophomonas -Continue cefepime for 8 days -procalcitonin not elevated -Follow up new sputum cultures -completed IV remdesivir -s/p Actemra 03/10/2021 -prophylactic anticoagulation based on d-dimer per hospital protocol -s/p trach/PEG Nayan Goins MD [facility] O: [phone] F: [phone] Subjective Date of service: 04/18/21 Principal diagnosis: COVID-19 infection; DM II; Bilateral pneumonia; Obesity; HTN Interval history: Febrile overnight 100.8 with a white count 14.2 Imaging personally viewed: Brain MRI: No acute intercranial Objective - Exam Narrative Exam: Physical exam deferred to reduce risk of transmission of COVID-19. Please refer to primary team's note. - Constitutional Vitals: Vital Signs Temp Pulse Resp BP Pulse Ox 99.2 F 93 H 17 126/70 99 04/18/21 12:00 04/18/21 15:01 04/18/21 15:01 04/18/21 15:01 04/18/21 15:01 Temperature -Last 24 Hours Temperature 99.2 F Temperature 99.8 F Temperature 99.3 F Temperature 100.8 F Temperature 100.8 F Temperature 98.9 F Temperature 100.7 F Temperature 100 F - Labs CBC & Chem 7: 02/22/22 04:20 04/18/21 04:20 Labs: Abnormal lab results 04/17/21 04/17/21 04/18/21 Range/Units 16:50 21:04 00:18 WBC (4.5-11.0) K/mm3 RBC (3.65-5.03) M/mm3 Hgb (11.8-15.2) gm/dl Hct (35.5-45.6) % RDW (13.2-15.2) % ABG pH (7.350-7.450) pH Units ABG pO2 (80.0-90.0) mm Hg ABG HCO3 (20.0-26.0) mmol/L ABG Base Excess (-2.0-3.0) mmol/L ABG Hemoglobin (14.0-18.0) gm/dl Chloride (98-107) mmol/L Carbon Dioxide (22-30) mmol/L BUN (9-20) mg/dL Creatinine (0.8-1.3) mg/dL Glucose (75-100) mg/dL POC Glucose 137 H 186 H 194 H (70-105) mg/dL 04/18/21 04/18/21 04/18/21 Range/Units 04:20 04:20 05:21 WBC 14.2 H (4.5-11.0) K/mm3 RBC 2.92 L (3.65-5.03) M/mm3 Hgb 8.5 L (11.8-15.2) gm/dl Hct 26.3 L (35.5-45.6) % RDW 16.1 H (13.2-15.2) % ABG pH (7.350-7.450) pH Units ABG pO2 (80.0-90.0) mm Hg ABG HCO3 (20.0-26.0) mmol/L ABG Base Excess (-2.0-3.0) mmol/L ABG Hemoglobin (14.0-18.0) gm/dl Chloride 95.7 L (98-107) mmol/L Carbon Dioxide 33 H (22-30) mmol/L BUN 21 H (9-20) mg/dL Creatinine 0.3 L (0.8-1.3) mg/dL Glucose 120 H (75-100) mg/dL POC Glucose 107 H (70-105) mg/dL 04/18/21 04/18/21 04/18/21 Range/Units 05:26 11:30 11:33 WBC (4.5-11.0) K/mm3 RBC (3.65-5.03) M/mm3 Hgb (11.8-15.2) gm/dl Hct (35.5-45.6) % RDW (13.2-15.2) % ABG pH 7.469 H (7.350-7.450) pH Units ABG pO2 108.9 H (80.0-90.0) mm Hg ABG HCO3 36.2 H (20.0-26.0) mmol/L ABG Base Excess 11.2 H (-2.0-3.0) mmol/L ABG Hemoglobin 8.8 L (14.0-18.0) gm/dl Chloride (98-107) mmol/L Carbon Dioxide (22-30) mmol/L BUN (9-20) mg/dL Creatinine (0.8-1.3) mg/dL Glucose (75-100) mg/dL POC Glucose 111 H 113 H (70-105) mg/dL
--- NOTE | 2021-04-18 16:45 | Progress Note ---
Assessment and Plan Assessment and plan: This is a 61-year-old man with HTN and DM admitted with COVID-19 pneumonia, acute hypoxic respiratory failure, sepsis Neuro: Acute encephalopathy -s/p fentanyl gtt, Seroquel and Librium -Avoid delirium -Reorientation as needed -Maintain sleep-wake cycle -As needed analgesia -admit: CT head shows no acute intracranial abnormality -Neurology consulted, appreciate recommendations -04/10 CT head shows no focal mass, hemorrhage, hydrocephalus or acute large territorial infarct but shows significant sinus disease with significant opacification of the mastoids bilaterally and mild middle ear cavity disease suggested as well -MRI brain shows no gross evidence of acute or significant intracranial abnormality, exam limited by motion artifact, partial opacification of mastoid air cells bilaterally, more extensively on the right, no definite evidence of fluid within the middle ear cavity. Cardiac: h/o Hypertension -Cardiology consulted, appreciate recommendations -Blood pressure monitoring per protocol -Echocardiogram shows a mildly dilated ascending aorta, normal LV systolic function, mild concentric LVH, LVEF 60 to 65% -Antihypertensive regimen: Hydralazine, metoprolol, amlodipine Respiratory: Acute hypoxic respiratory failure -CCM consulted, appreciate recommendations -Intubated on 03/10 with 7.50 ETT at 24 at the lips, s/p trach on 03/29 -A.m. vent settings: Assist-control rate 12, tidal volume 450, PEEP 6, FiO2 40% -See RT notes for titration -Placed on PSV -T-piece trials started today -Albuterol as needed, Brovana, Pulmicort -VAP bundle -SPO2 monitoring GI: Obesity, external hemorrhoids -24 hours + 820 mL -PPI -NTR consulted for tube feedings -BR: Senokot, miralax -BM 04/17 -As needed Preparation H : Urinary retention -Nephrology consulted, appreciate recommendations -Strict intake and output -Renally dose medications -Avoid nephrotoxic medications -Doxazosin increased to twice daily -Good catheter removed 04/17 and patient had to be straight cath x2 however did eventually have spontaneous urine output -Will continue to monitor -Lasix -trend BMP ID: Severe sepsis (POA), COVID-19 pneumonia, stenotrophomonas maltophilia in tracheal aspirate -Infectious disease consulted, appreciate recommendations -Antibiotic therapy with cefepime -Due to low procalcitonin and cultures remaining negative cefepime was discontinued -S/p remdesivir for 5 days -S/p Actemra 03/10/2021 -f/u blood culture -Monitor WBC and temperature curve -s/p steroids -IV Cefepime + Vancomycin started 04/15-04/23 -f/u procal in am -03/16 Fungitell and histoplasma negative Heme: Acute right upper extremity DVT , superficial thrombus in left gastrocnemius vein -Bilateral lower extremity ultrasound negative for DVT, superficial thrombus in left gastrocnemius vein -repeat BLE Doppler US show superficial thrombus -Repeat bilateral upper extremity ultrasound shows DVT in right upper extremity -heparin drip to eliquis PO -repeat BLE UE dopplar showed superficial thrombus within the gastrocnemius vein unchanged from previous study -CTA chest shows no gross pulm embolism -Trend CBC -SCDs to BLE while in bed -Transfuse hemoglobin less than 7 -Monitor for signs of bleeding Endo: h/o DM -Avoid hypoglycemia -SSI -Accu-Cheks q. 6 -Long-acting insulin, titrate as needed The high probability of a clinically significant, sudden or life threatening deterioration of the [multi] system(s) required my full and direct attention, intervention and personal management. The aggregate critical care time was [60] minutes. This time is in addition to time spent performing reported procedures but includes the following: [x] Data Review and interpretation [x] Patient assessment and monitoring of vital signs [x] Documentation [x] Medication orders and management Disposition Plan: ICU Total Time Spent with Patient (Minutes): 60 History Interval history: This is a 61-year-old male with HTN and DM who presented to the emergency department on 03/09 with shortness of breath and hypoxia via EMS. Patient had apparently been feeling ill for proxy 1 week prior to mentation. Upon EMS arrival patient SPO2 was in the low 70s and improved to upper 80slow 90s on nonrebreather and he was transported to [facility] in the emergency department patient was noted to be hypoxic and placed on a BiPAP with improvement to mentation and hypoxia. CXR showed bilateral patchy infiltrates. Lab work showed leukocytosis, elevated D-dimer, hyponatremia, hypochloremia and elevated COVID-19 markers with elevated BNP. CTA chest showed no pulmonary embolism. Patient was admitted to the hospitalist service as a COVID-19 PUI and started on antibiotics and Decadron with consult to infectious disease. 03/09: The patient was seen and evaluated today, and he was found to be hemodynamically stable. The patient is currently on BiPAP for possible COVID-19 pneumonia. He was started on Lovenox 1mg/kg for DVT ppx in the setting of d- dimer > 10,000. Infectious Disease was consulted. The patient is pending a TTE. 03/10: No acute events overnight, patient was intubated in the afternoon transferred to ICU 03/11: Patient started on Lantus, free water flushes increased, propofol drip resumed and oral antihypertensive added. 03/12: lantus increased, k at 5, will monitor. I updated his family and his stated that he is not vaccinated. He does have HTN and she will call the RN to update home medications. She did say he takes bystolic and amlopine. She inquired about ventilator and lab work. She had no further questions. 03/13: KVNG overnight. Patient remains hyperglycemic, basal insulin adjusted and increased to Q12hrs. Patient is overall net positive since admit X1 dose of IV lasix, repeat BMP this afternoon. 03/14: Failed SAT this am due to increase agitation, tachycardia and hypertension. Remains on propofol and fentanyl gtt. Hyperkalemia treated with PO kayaxalate. Patient responded to IV lasix yesterday additional dose again today for a net negative balance. Repeat BMP this afternoon. Insulin adjusted for hyperglycemia. 03/15: Remains encephalopathic, not following commansd. Orders placed for CT head/Brain and Neuro consulted. Rectal bleeding subsided, most likely due to hemorrhoids. H&H is stable will continue to monitor. Kayaxexalate for high K, repeat labs 4 to 6hrs post treatment. 03/16: Still agiated this am, CT head with no acute Abn. CXR and ABG noted- evolving pna and worsening hypoxia, now with low grade fevers. Sputum culture ordered, IV Abx added, ID on cosult. 03/17: This am ABG noted, hypoxia improved. Continue to wean FiO2 as tolerated. Still with low grade fevers, on IV Abx per ID. Still with periods of confusion despite sedation, seroquel increased. F/u CXR in the am 03/18: still very agitated especially when off sedation, with hypertension and tachycardia. Continue sedation for RASS -2, PRN antihypertensive for SPB greater than 160. This febrile this am, continue current IV abx per ID 03/19: Patient afebrile overnight, continue IV Abx per ID. ABG also improved this am, continue to wean FIO2 as tolerated. PRN antihypertensive for hypertension. 03/20: Hyperkalemia treated with Kayexalate, Good discontinued, vancomycin and cefepime stopped started Bactrim by ID. Steroid taper started. 03/21: BB started for hypertension, Seroquel increased for agitation and Librium started no acute events reported overnight. CCM made vent changes 03/22: Adjustment to anxiolytics, respiratory rate on ventilator per CCM. Patient noted to have bleeding hemorrhoids with clot, requested RN to remove bowel management system and will order Preparation H. 03/23: Given no confirmed DVT or PE (only superficial thrombus noted on Dopplers) therapeutic Lovenox changed to prophylactic Lovenox. Started on doxazosin to help with retention. Consulted surgery for tracheostomy and propofol discontinued. 03/24: Surgery consult completed, patient changed to prophylaxis anticoagulation, started on doxazosin yesterday with plans to remove Ogod catheter in 48 hours. Patient with slight hypokalemia today and given Kayexalate. No acute events reported overnight. 03/25: No acute events reported overnight. Patient remains on fentanyl drip and on CPAP trial this morning. 03/26: no acute events reported overnight. placed on CPAP this AM, remains on fent/librium. scheduled for trach/peg this week. 03/27: Hypoglycemic this am, will decreased lantus to Qhs. Plan for possible Trach and Peg by Gen Surg this am. Case management to arrange possible LTAC placement 03/28: KVNG overnight. Tolerating PST this am. Plan for trach and PEG tomorrow by Gen. Surgery, NPO after midnight. 03/29: No significant changes overnight. Plan for trach and Peg today. Case management to arrange possible LTAC placement 03/30. S/p Trach and PEG, no complications noted. High residual yesterday despite NPO status, reglan added X2 days. Per RN no residual this am, patient is tolerating TF. Continue to advance TF as tolerated. Norvasc added for hyper tension. Pitting edema also appreciated, some diuretic might be beneficial, will d/w CCM. Continue daily PST as tolerated. 2/4: Patient remains on the vent still on fentanyl gtt with periods of agita tion. PRN analgesia added, plan to start weaning off fentanyl gtt. Febrile this am, completed IV abx course. Will panculture for now, ID is also following. 04/01: Still febrile overnight, cultures result pending, continue IV ABx per ID. Failed PST this am. Continue daily PST and vent wean per [facility]. Case management to arrange possible placement. 04/02: KVNG overnight. Fevers improved overnight, continue to follow cultures data, IV ABx per ID. Continue daily PST and wean vent as per [facility]. 04/03: Given low procalcitonin, unchanged CXR and cultures with no growth cefepime was discontinued by ID. LTAC evaluation ongoing. No acute events reported overnight. 04/04: IV Lasix stopped today, Seroquel taper started, fentanyl drip on hold and steroids stopped. Pressure support trial again today. 04/05: Patient had to be restarted on fentanyl drip therefore Seroquel was increased back to 250 twice daily and he was started on scheduled narcotics and efforts to wean fentanyl drip. Doxazosin was increased to twice daily as patient still had retention issues on doxazosin once a day. Patient was denied LTAC placement. CPAP trial today. 04/06: Right upper extremity ultrasound obtained due to edema which showed DVT. Patient started on heparin drip. Overnight patient had hypoxia, tachypnea, tachycardia, hypotension and FiO2 was increased to 100%. RT titrating as tolerated. Plan was to start T-piece trials today. Patient has been denied LTAC placement. 04/07: BLE dopplar, continue lasix per [facility], CXR in AM. Increase in fio2 overnight d/t desaturation. Wean FiO2 as tolerated. 04/08: Patient remains on 65% FiO2, s/p Lasix for 3 doses, hyperkalemia noted today and medically treated. [facility] plans to consult heme/onc once FiO2 decreased. Remains on heparin gtt 04/09: No acute events reported overnight, possible heme-onc consult on Saturday or Saturday regarding upper extremity DVT, wean FiO2 as tolerated. Repeat CT head on Monday 04/10: Patient mentation is unchanged, repeat CT head today. Remains on heparin gtt per protocol. Continue daily PST as tolerated. 2/15: Increased work of breathing and high RR overnight, vent FiO2 increased to 55%. Resolved this am, patient is tolerating PST, no acute distress noted. Wean Fio2 as tolerated for SPO2 above 92%, Follow up CXR and ABG in the am. Antihypertensive regimen adjusted for better BP control. 04/12: Patient with coarse lungs and increased secretion today. This am CXR noted with worsen infiltrate, 40 of Lasix given, repeat CXR in the am. Patient remains afebrile, complete IV Abx course, VSS. Transitioned to PO Eliquis overnight, continue to keep patient net negative for better lung compliance. Continue daily PST as tolerated. 04/13: Patient is off sedation this am. Remains unresponsive. Librium D/C and Seroquel was adjusted to Qhs, PRN analgesia for pain management. Patient responded well to IV lasix, this am CXR with some improvement, additional IV lasix ordered again today. high CO2 also noted from this am, ABG ordered. Bayron meza is tolerating PST this am, SPO2 remains above 95%. Continue daily PST plan to get patient off the vent for possible SNF placemement 04/14: Patient mentation is unchanged despite reducing sedative agents. Will hold all scheduled sedatives agents for now, PRN analgesics for pain management and vent synchrony. Patient spike a temp this am, orders placed for cultures, IV abx per ID. Additional lasix today, F/u CXR in the am. Patient is tolerating PST this am. 04/15: Remains febrile overnight. Culture data pending, back on IV Abx per ID. Gentle fluid management with IV lasix. Keep patient at a net negative balance. Continue daily PST as tolerated. 04/16: Open eyes spontaneously this am, but still not following commands. MRI brain ordered. Continue to avoid any sedative agents. Patient continue to respond very well to IV diuretic, continue gentle diurese X3days as tolerated. Continue daily PST as tolerated. Plan is get patient off the vent for possible SNF placement. Patient remains febrile this am, now cefepine and Vanc, continue IV abx per ID. 04/17: We will repeat procalcitonin per ID, MRI brain pending, SNF placement pending, [facility] plans to start T-piece trials in the morning and will discontinue Good catheter again. 04/18: Overnight patient to be straight cath x2 but did eventually have spontaneous urine output today and Good catheter was not replaced, patient had MRI brain today and was started on T-piece trials. He received Versed for sedation for MRI brain. Hospitalist Physical - Constitutional Vitals: Temp Pulse Resp BP Pulse Ox 99.2 F 93 H 17 126/70 99 04/18/21 12:00 04/18/21 15:01 04/18/21 15:01 04/18/21 15:01 04/18/21 15:01 General appearance: Present: no acute distress, well-nourished, obese, other (Unresponsive) Results - Labs CBC & Chem 7: 04/18/21 04:20 04/18/21 04:20 Labs: Laboratory Last Values WBC 14.2 K/mm3 (4.5-11.0) H 04/18/21 04:20 RBC 2.92 M/mm3 (3.65-5.03) L 04/18/21 04:20 Hgb 8.5 gm/dl (11.8-15.2) L 04/18/21 04:20 Hct 26.3 % (35.5-45.6) L 04/18/21 04:20 MCV 90 fl (84-94) 04/18/21 04:20 MCH 29 pg (28-32) 04/18/21 04:20 MCHC 33 % (32-34) 04/18/21 04:20 RDW 16.1 % (13.2-15.2) H 04/18/21 04:20 Plt Count 420 K/mm3 (140-440) 04/18/21 04:20 Lymph % (Auto) 7.6 % (13.4-35.0) L 03/31/21 13:30 [place] % (Auto) 9.5 % (0.0-7.3) H 03/31/21 13:30 Eos % (Auto) 4.1 % (0.0-4.3) 03/31/21 13:30 Baso % (Auto) 0.5 % (0.0-1.8) 03/31/21 13:30 Lymph # (Auto) 0.6 K/mm3 (1.2-5.4) L 03/31/21 13:30 [place] # (Auto) 0.7 K/mm3 (0.0-0.8) 03/31/21 13:30 Eos # (Auto) 0.3 K/mm3 (0.0-0.4) 03/31/21 13:30 Baso # (Auto) 0.0 K/mm3 (0.0-0.1) 03/31/21 13:30 Add Manual Diff Complete 04/11/21 06:47 Total Counted 100 04/11/21 06:47 Seg Neutrophils % 78.3 % (40.0-70.0) H 03/31/21 13:30 Seg Neuts % (Manual) 76.0 % (40.0-70.0) H 04/11/21 06:47 Band Neutrophils % 2.0 % 04/11/21 06:47 Lymphocytes % (Manual) 10.0 % (13.4-35.0) L 04/11/21 06:47 Reactive Lymphs % (Man) 0 % 04/11/21 06:47 Monocytes % (Manual) 7.0 % (0.0-7.3) 04/11/21 06:47 Eosinophils % (Manual) 4.0 % (0.0-4.3) 04/11/21 06:47 Basophils % (Manual) 0 % (0.0-1.8) 04/11/21 06:47 Metamyelocytes % 1.0 % 04/11/21 06:47 Myelocytes % 0 % 04/11/21 06:47 Promyelocytes % 0 % 04/11/21 06:47 Blast Cells % 0 % 04/11/21 06:47 Nucleated RBC % Not Reportable 04/11/21 06:47 Seg Neutrophils # 5.8 K/mm3 (1.8-7.7) 03/31/21 13:30 Seg Neutrophils # Man 8.3 K/mm3 (1.8-7.7) H 04/11/21 06:47 Band Neutrophils # 0.2 K/mm3 04/11/21 06:47 Lymphocytes # (Manual) 1.1 K/mm3 (1.2-5.4) L 04/11/21 06:47 Abs React Lymphs (Man) 0.0 K/mm3 04/11/21 06:47 Monocytes # (Manual) 0.8 K/mm3 (0.0-0.8) 04/11/21 06:47 Eosinophils # (Manual) 0.4 K/mm3 (0.0-0.4) 04/11/21 06:47 Basophils # (Manual) 0.0 K/mm3 (0.0-0.1) 04/11/21 06:47 Metamyelocytes # 0.1 K/mm3 04/11/21 06:47 Myelocytes # 0.0 K/mm3 04/11/21 06:47 Promyelocytes # 0.0 K/mm3 04/11/21 06:47 Blast Cells # 0.0 K/mm3 04/11/21 06:47 WBC Morphology Not Reportable 04/11/21 06:47 Hypersegmented Neuts Not Reportable 04/11/21 06:47 Hyposegmented Neuts Not Reportable 04/11/21 06:47 Hypogranular Neuts Not Reportable 04/11/21 06:47 Smudge Cells Not Reportable 04/11/21 06:47 Toxic Granulation 1+ 04/11/21 06:47 Toxic Vacuolation Not Reportable 04/11/21 06:47 Dohle Bodies Not Reportable 04/11/21 06:47 Pelger-Huet Anomaly Not Reportable 04/11/21 06:47 Mely Rods Not Reportable 04/11/21 06:47 Platelet Estimate Consistent w auto 04/11/21 06:47 Clumped Platelets Not Reportable 04/11/21 06:47 Plt Clumps, EDTA Not Reportable 04/11/21 06:47 Large Platelets Not Reportable 04/11/21 06:47 Giant Platelets Not Reportable 04/11/21 06:47 Platelet Satelliting Not Reportable 04/11/21 06:47 Plt Morphology Comment Not Reportable 04/11/21 06:47 RBC Morphology Not Reportable 04/11/21 06:47 Dimorphic RBCs Not Reportable 04/11/21 06:47 Polychromasia Not Reportable 04/11/21 06:47 Hypochromasia Not Reportable 04/11/21 06:47 Poikilocytosis Not Reportable 04/11/21 06:47 Anisocytosis 1+ 04/11/21 06:47 Microcytosis Not Reportable 04/11/21 06:47 Macrocytosis Not Reportable 04/11/21 06:47 Spherocytes Not Reportable 04/11/21 06:47 Pappenheimer Bodies Not Reportable 04/11/21 06:47 Sickle Cells Not Reportable 04/11/21 06:47 Target Cells Not Reportable 04/11/21 06:47 Tear Drop Cells Not Reportable 04/11/21 06:47 Ovalocytes Not Reportable 04/11/21 06:47 Helmet Cells Not Reportable 04/11/21 06:[address] [place] Bodies Not Reportable 04/11/21 06:47 P[place]y Rings Not Reportable 04/11/21 06:47 [place] Cells Not Reportable 04/11/21 06:47 Bite Cells Not Reportable 04/11/21 06:47 Crenated Cell Not Reportable 04/11/21 06:47 Elliptocytes Not Reportable 04/11/21 06:47 Acanthocytes (Spur) Not Reportable 04/11/21 06:47 Rouleaux Not Reportable 04/11/21 06:47 Hemoglobin C Crystals Not Reportable 04/11/21 06:47 Schistocytes Not Reportable 04/11/21 06:47 Malaria parasites Not Reportable 04/11/21 06:47 Shaheen Bodies Not Reportable 04/11/21 06:47 Hem Pathologist Commnt No 04/11/21 06:47 PT 13.4 Sec. (12.2-14.9) 04/11/21 18:17 INR 0.92 (0.87-1.13) 04/11/21 18:17 APTT 61.1 Sec. (24.2-36.6) H* 04/11/21 18:17 D-Dimer 1359.12 ng/mlDDU (0-234) H 03/17/21 04:40 Heparin Anti-Xa Level 1.03 U.I./ml (0.3-0.7) H 04/12/21 05:11 ABG pH 7.469 pH Units (7.350-7.450) H 04/18/21 11:30 POC ABG pCO2 57.4 mmHg (32.0-48.0) H 04/06/21 04:49 ABG pCO2 50.9 mm Hg 04/18/21 11:30 POC ABG pO2 55.1 mmHg (83-108) L 04/06/21 04:49 ABG pO2 108.9 mm Hg (80.0-90.0) H 04/18/21 11:30 POC ABG HCO3 36.2 04/06/21 04:49 ABG HCO3 36.2 mmol/L (20.0-26.0) H 04/18/21 11:30 ABG O2 Saturation 98.0 % (95.0-99.0) 04/18/21 11:30 ABG O2 Content 12.1 (0.0-44) 04/18/21 11:30 POC ABG Base Excess 10.0 04/06/21 04:49 ABG Base Excess 11.2 mmol/L (-2.0-3.0) H 04/18/21 11:30 ABG Hemoglobin 8.8 gm/dl (14.0-18.0) L 04/18/21 11:30 ABG Oxyhemoglobin 87.5 (94-98) L 04/06/21 04:49 ABG Carboxyhemoglobin 1.7 % (0.0-5.0) 04/18/21 11:30 ABG Methemoglobin 0.5 % (0.0-1.5) 04/18/21 11:30 ABG Sodium 134.2 mmol/L (136.0-145.0) L 03/12/21 21:54 ABG Potassium 4.9 mmol/L (3.40-4.50) H 03/12/21 21:54 ABG Chloride 99.0 mmol/L (98-107) 03/12/21 21:54 ABG Glucose 306 mg/dL (65-95) H 03/12/21 21:54 Oxyhemoglobin 95.9 % (95.0-99.0) 04/18/21 11:30 Carboxyhemoglobin 0.8 (0.5-1.5) 04/06/21 04:49 FiO2 40 % 04/18/21 11:30 FiO2 % 40.0 04/06/21 04:49 Sodium 137 mmol/L (137-145) 04/18/21 04:20 Potassium 3.7 mmol/L (3.6-5.0) 04/18/21 04:20 Chloride 95.7 mmol/L (98-107) L 04/18/21 04:20 Carbon Dioxide 33 mmol/L (22-30) H 04/18/21 04:20 Anion Gap 12 mmol/L 04/18/21 04:20 BUN 21 mg/dL (9-20) H 04/18/21 04:20 Creatinine 0.3 mg/dL (0.8-1.3) L 04/18/21 04:20 Estimated GFR > 60 ml/min 04/18/21 04:20 BUN/Creatinine Ratio 70 % 04/18/21 04:20 Glucose 120 mg/dL (75-100) H 04/18/21 04:20 POC Glucose 113 mg/dL (70-105) H 04/18/21 11:33 Lactic Acid 1.90 mmol/L (0.7-2.0) 03/08/21 23:51 Calcium 8.8 mg/dL (8.4-10.2) 04/18/21 04:20 Phosphorus 3.60 mg/dL (2.5-4.5) 04/17/21 04:25 Magnesium 2.30 mg/dL (1.7-2.3) 04/17/21 04:25 Ferritin 976.4 ng/mL (30.0-300.0) H 03/15/21 04:00 Total Bilirubin 0.20 mg/dL (0.1-1.2) 03/12/21 08:03 AST 10 units/L (5-40) 03/12/21 08:03 ALT 16 units/L (7-56) 03/12/21 08:03 Alkaline Phosphatase 77 units/L (35-129) 03/12/21 08:03 Lactate Dehydrogenase 630 units/L (91-180) H 03/15/21 06:06 C-Reactive Protein 0.40 mg/dL (0.00-1.30) 03/17/21 04:40 NT-Pro-B Natriuret Pep 1053 pg/mL (0-900) H 03/08/21 20:24 Total Protein 6.0 g/dL (6.3-8.2) L 03/12/21 08:03 Albumin 2.9 g/dL (3.9-5) L 03/12/21 08:03 Albumin/Globulin Ratio 0.9 % 03/12/21 08:03 Triglycerides 305 mg/dL (2-149) H 03/22/21 07:26 Procalcitonin 0.19 ng/mL (<0.15) 04/18/21 04:20 Arterial Blood Glucose 306 mg/dL (65-95) H 03/12/21 21:54 Arterial Blood Ionized Calcium 5.0 mg/dL (4.6-5.3) 03/12/21 21:54 Urine Color Yellow (Yellow) 04/14/21 Unknown Urine Turbidity Clear (Clear) 04/14/21 Unknown Urine pH 8.0 (5.0-7.0) H 04/14/21 Unknown Ur Specific [place] 1.009 (1.003-1.030) 04/14/21 Unknown Urine Protein <15 mg/dl mg/dL (Negative) 04/14/21 Unknown Urine Glucose (UA) Neg mg/dL (Negative) 04/14/21 Unknown Urine Ketones Neg mg/dL (Negative) 04/14/21 Unknown Urine Blood Neg (Negative) 04/14/21 Unknown Urine Nitrite Neg (Negative) 04/14/21 Unknown Urine Bilirubin Neg (Negative) 04/14/21 Unknown Urine Urobilinogen 2.0 mg/dL (<2.0) 04/14/21 Unknown Ur Leukocyte Esterase Neg (Negative) 04/14/21 Unknown Urine WBC (Auto) < 1.0 /HPF (0.0-6.0) 04/14/21 Unknown Urine RBC (Auto) < 1.0 /HPF (0.0-6.0) 04/14/21 Unknown Urine Bacteria (Auto) 1+ /HPF (Negative) 03/09/21 04:10 Urine Mucus Few /HPF 03/09/21 04:10 Vancomycin Trough 16.8 ug/mL (5.0-20.0) 04/16/21 14:30 Coronavirus (PCR) Positive (Negative) A 03/09/21 08:00 Miscellaneous Test Flexitest 1 03/16/21 13:14 Microbiology: Microbiology 04/14/21 08:26 Peripheral/Venous Blood Culture - Preliminary NO GROWTH AFTER 4 DAYS 04/14/21 08:26 Peripheral/Venous Blood Culture - Preliminary NO GROWTH AFTER 4 DAYS Good/IV: Voiding Method Condom Catheter Active Medications - Current Medications Current Medications: Generic Name Dose Route Start Last Admin Trade Name Freq PRN Reason Stop Dose Admin Acetaminophen 650 mg 03/09/21 01:26 04/18/21 00:48 Acetaminophen 325 Mg Tab PO 650 mg Q4H PRN Administration Pain MILD(1-3)/Fever >100.5/RAYO Albuterol 2.5 mg 03/09/21 01:26 03/18/21 21:06 Albuterol 2.5 Mg/3 Ml Nebu IH 2.5 mg Q4HRT PRN Administration Shortness Of Breath Amlodipine Besylate 10 mg 04/11/21 10:00 04/18/21 09:45 Amlodipine 5 Mg Tab PO 10 mg QDAY BLANCA Administration Apixaban 5 mg 04/18/21 22:00 Apixaban 5 Mg Tab PO Q12HR BLANCA Protocol Arformoterol Tartrate 15 mcg 03/11/21 20:00 04/18/21 07:43 Arformoterol 15 Mcg/2 Ml Nebu IH 15 mcg Q12HRT BLANCA Administration Bisacodyl 10 mg 03/26/21 13:43 03/26/21 13:51 Bisacodyl 10 Mg Rect Supp [place] 10 mg QDAY PRN Administration Constipation Budesonide 0.5 mg 04/06/21 20:00 04/18/21 07:44 Budesonide 0.5 Mg/2 Ml Nebu IH 0.5 mg Q12HRT BLANCA Administration Dextrose 0 ml 03/20/21 10:52 Dextrose 10% *Hypoglycemia IV PRN PRN Hypoglycemia Doxazosin Mesylate 1 mg 04/05/21 22:00 04/18/21 09:45 Doxazosin 1 Mg Tab PO 1 mg BID BLANCA Administration Famotidine 20 mg 03/12/21 22:00 04/18/21 09:45 Famotidine 20 Mg Tab FEEDTUBE 20 mg BID BLANCA Administration Fentanyl 50 mcg 04/14/21 11:00 04/14/21 21:37 Fentanyl 100 Mcg/2 Ml Inj IV 50 mcg Q2HR PRN Administration COPT greater than 3 Furosemide 40 mg 04/16/21 10:00 04/17/21 09:16 Furosemide 40 Mg/4 Ml Inj IV 04/19/21 09:59 40 mg QDAY BLANCA Administration Hydralazine HCl 50 mg 03/23/21 14:26 04/18/21 15:29 Hydralazine 25 Mg Tab PO 50 mg Q8HR BLANCA Administration Cefepime HCl 2 gm in 100 mls @ 200 mls/hr 04/14/21 15:00 04/18/21 16:00 Cefepime/Ns 2 Gm/100 Ml IV 04/22/21 06:29 200 mls/hr Q8HR BLANCA Administration Protocol Vancomycin HCl 1,750 mg/ 535 mls @ 333 mls/hr 04/15/21 15:00 04/18/21 16:00 Sodium Chloride IV 333 mls/hr Q12H [facility]AN[facility] Administration Protocol Insulin Glargine 18 units 04/07/21 22:00 04/17/21 21:23 Insulin Glargine 100 Units/Ml SUB-Q 18 units QHS [facility]AN[facility] Administration Insulin Human Lispro 0 unit 03/11/21 18:00 04/18/21 05:32 Insulin Lispro 100 Unit/Ml SUB-Q Not Given Q6HR [facility] Protocol Metoprolol Tartrate 12.5 mg 03/21/21 22:00 04/18/21 09:45 Metoprolol Tartrate 25 Mg Tab PO 12.5 mg BID [facility]ANCA Administration Ondansetron HCl 4 mg 03/09/21 01:26 04/13/21 16:17 Ondansetron 4 Mg/2 Ml Inj IV 4 mg Q8H PRN Administration Nausea And Vomiting Oxycodone HCl 5 mg 04/13/21 12:34 04/14/21 18:09 Oxycodone 5 Mg Tab PO 5 mg Q6HR PRN Administration Pain, Moderate (4-6) Phenyleph/Shark Oil/Min Oil/Petrol 1 applic 03/22/21 17:35 04/06/21 04:04 Pe/Mo/Pet,Wh 10 Applic/28 Gm Tube KS 1 applic Q6HR PRN Administration Hemorrhoids Polyethylene Glycol 17 gm 04/02/21 10:00 04/18/21 09:46 Polyethylene Glycol 3350 17 Gm Powder FEEDTUBE 17 gm QDAY [facility]ANCA Administration Senna/Docusate Sodium 2 tab 04/02/21 10:00 04/18/21 09:44 Sennosides/Docusate Sodium 8.6/50 Mg Tab FEEDTUBE 2 tab BID [facility]AN[facility] Administration Sodium Chloride 10 ml 03/09/21 10:00 04/18/21 09:46 Sodium Chloride 0.9% 10 Ml Flush Syringe IV 10 ml BID [facility]AN[facility] Administration Sodium Chloride 10 ml 03/09/21 01:26 04/10/21 21:07 Sodium Chloride 0.9% 10 Ml Flush Syringe IV 10 ml PRN PRN Administration LINE FLUSH Sodium Chloride 10 ml 03/20/21 09:48 Sodium Chloride 0.9% 50 Ml Ivpb IV PRN PRN FLUSH Nutrition/Malnutrition Assess - Dietary Evaluation Nutrition/Malnutrition Findings: Nutrition Notes Start: 03/09/21 08:49 Freq: Status: Active Protocol: Document 04/14/21 14:43 BRIAN (Rec: 04/14/21 14:45 BRIAN [id number]) Nutrition Notes Initial or Follow up Reassessment Current Diagnosis Diabetes,Sepsis,Hypertension, Respiratory Failure Other Pertinent Diagnosis COVID-19, Bilateral Pneumonia. Current Diet TF-Glucerna 1.2 at 70 ml/hr Labs/Tests reviewed Pertinent Medications reviewed Height 5 ft 11 in Weight 122.4 kg [place] Body Weight (kg) 78.18 BMI 37.6 Weight Status Obese Subjective/Other Information Pt remains on vent support. Spoke with RN via phone (14:18 ); pt continues to tolerate TF at goal rate. Percent of energy/protein needs met: 82% energy 78% pro Burn Absent Trauma Absent #1 Nutrition Diagnosis Inadequate oral intake Diagnosis Progress(for reassessment Continues documentation) Is patient on ventilator? Yes Is Patient Ambulatory and/or Out of Bed No REE-([place]-[facility] [facility]or-confined to bed) 2453.928 Calculation Used for Recommendations 70-80% energy needs Additional Notes Energy needs: 8327-5931 kcal/ day Pro needs 1.3g/kg adjBW: 130g/ day Fluid needs 1ml/kcal Nutrition Intervention Nutrition Support: Continue Glucerna 1.2 at 70ml/ hr with 110ml water flush q4h. Kcal 2,016 Protein (gm) 101 Carbohydrates (gm) 192 Fat (gm) 101 Fluid (mL) 1,352 Fiber (gm) 27 Goal #1 TF tolerance Goal #2 TF to meet at least 75% energy and pro needs Follow-Up By: 04/21/21 Additional Comments F/U: stable TF, vent status, wt
[2021-04-18] MEDS: INSULIN GLARGINE 100 UNITS/ML SUB-Q SCH (21:30)
[2021-04-19] MEDS: INSULIN LISPRO 100 UNIT/ML SUB-Q SCH ×4 (00:14→18:27)
[2021-04-19] MEDS: VANCOMYCIN 1,750 MG in SODIUM CHLORIDE 0.9% 500 ML 500 ML IV SCH ×2 (02:52→15:30)
[2021-04-19 04:45] LABS: Hematocrit 24.4 % (35.5-45.6); Hemoglobin 8.5 gm/dl (11.8-15.2); Mean Corpuscular HGB Conc 35 % (32-34); Mean Corpuscular Volume 91 fl (84-94); Platelet Count 362 K/mm3 (140-440); Red Blood Count 2.69 M/mm3 (3.65-5.03); Red Cell Distribution Width 15.9 % (13.2-15.2)
[2021-04-19 05:05] LABS: Blood Urea Nitrogen 20 mg/dL (9-20); Calcium 8.9 mg/dL (8.4-10.2); Hemolysis Index 32
[2021-04-19 05:06] LABS: BUN/Creatinine Ratio 67
[2021-04-19] MEDS: hydrALAZINE 25 MG TAB PO SCH ×3 (05:44→21:00)
[2021-04-19] MEDS: CEFEPIME/NS 2 GM/100 ML 2 GM/100 ML BAG IV SCH ×2 (05:44→13:29)
[2021-04-19] MEDS: BUDESONIDE 0.5 MG/2 ML NEBU IH SCH ×2 (08:44→20:16)
[2021-04-19] MEDS: ARFORMOTEROL 15 MCG/2 ML NEBU IH SCH ×2 (08:44→20:16)
--- NOTE | 2021-04-19 10:42 | Progress Note ---
Assessment and Plan Acute hypoxemic respiratory failure, on continuous noninvasive ventilation COVID-19 infection Bilateral pneumonia History of diabetes Obesity Hypertension Leukocytosis Possible venous thromboembolic phenomena with significantly elevated D-dimers DM II Elevated serum inflammatory markers to include CRP levels, ferritin and LDH - advance t-piece trials as tolerated; shoot for 8+ hours today - brain MRI without acute process - continue LTAC evaluation - continue care as below otherwise; - continue Daily SAT and SBT assessment as tolerated - continue to wean supplemental oxygen for target O2 sat's > 90% acutely - VAP bundle addressed - continue lung protective strategies - continue bronchodilators with routiune trach care and pulmonary hygiene per RT - wean per pulmonary driven protocols otherwise - continue accuchecks with glycemic control per SSI (While critically ill target blood glucose of 140-180 mg/dL; avoid hypoglycemia) - sedation prn for target RASS 0 to -1 - avoid nephrotoxins, renally dose all medications - avoid benzodiazepine's, reduce the possibility of delirium - AB's per ID rec's - prn analgesia per pain score - Maintenance of sleep-wake cycle, avoid delirium - G.I. & VTE prophylaxis - PT/OT/ROM exercises - mobility protocols for pressure ulcer prophylaxis - Monitor hemodynamics closely - continue other care per attending / other consultants - discharge planning ongoing concurrently COVID SPECIFIC INTERVENTIONS - Remdesivir as per ID/Pulmonary developed protocols (received) - continue systemic steroids for severe COVID-19 infection empirically (Decadron) - follow repeat COVID tests results - zinc and vitamin C supplementation - Monitor inflammatory markers per facility protocol - ferritin, Ddimer, CRP - therapeutic anticoagulation per system Protocol based on d-dimer and clinical considerations (treatment dose) - contact and airborne isolation discontinued .... Re-evaluate in am & prn CONDITION: CRITICAL PROGNOSIS: GUARDED CODE STATUS: FULL CODE The high probability of a clinically significant, sudden or life-threatening deterioration of the [respiratory, cardiovascular & hematologic] system(s) required my full and direct attention, intervention and personal management. The aggregate critical care time was [34] minutes without overlap. Time includes spent on; [x] Data Review and interpretation [x] Patient assessment and monitoring of vital signs [x] Documentation [x] Medication orders and management Subjective Date of service: 04/19/21 Principal diagnosis: COVID-19 infection; DM II; Bilateral pneumonia; Obesity; HTN Interval history: Patient is seen today for: Acute hypoxemic respiratory failure; COVID-19 infection; DM II; Bilateral pneumonia; Obesity; HTN Seen and examined at bedside; 24hour events reviewed; nursing and respiratory care staff consulted; no adverse overnight events reported to me; resting in bed; rested on MVS; on t-piece now and tolerating decently; no N/V/F/C Objective Vital Signs - 12hr 04/18/21 04/18/21 04/19/21 23:00 23:30 00:00 Temperature 99.8 F H Pulse Rate 90 87 86 Pulse Rate [ Bilateral Throughout] Pulse Rate [ 93 H From Monitor] Respiratory 24 29 H 30 H Rate Respiratory Rate [Bilateral Throughout] Blood Pressure 127/73 121/66 121/66 O2 Sat by Pulse 94 97 98 Oximetry O2 Sat by Pulse Oximetry [ Assessment] 04/19/21 04/19/21 04/19/21 00:11 00:30 01:00 Temperature Pulse Rate 96 H 91 H 90 Pulse Rate [ Bilateral Throughout] Pulse Rate [ From Monitor] Respiratory 32 H 20 Rate Respiratory Rate [Bilateral Throughout] Blood Pressure 121/66 121/71 121/71 O2 Sat by Pulse 96 99 99 Oximetry O2 Sat by Pulse Oximetry [ Assessment] 04/19/21 04/19/21 04/19/21 01:30 02:00 02:30 Temperature Pulse Rate 87 87 86 Pulse Rate [ Bilateral Throughout] Pulse Rate [ From Monitor] Respiratory 30 H 28 H 30 H Rate Respiratory Rate [Bilateral Throughout] Blood Pressure 177/54 177/54 118/63 O2 Sat by Pulse 98 98 97 Oximetry O2 Sat by Pulse Oximetry [ Assessment] 04/19/21 04/19/21 04/19/21 03:00 03:30 04:00 Temperature 98.3 F Pulse Rate 86 84 85 Pulse Rate [ Bilateral Throughout] Pulse Rate [ 93 H From Monitor] Respiratory 29 H 27 H 29 H Rate Respiratory Rate [Bilateral Throughout] Blood Pressure 118/63 121/64 121/64 O2 Sat by Pulse 97 97 98 Oximetry O2 Sat by Pulse Oximetry [ Assessment] 04/19/21 04/19/21 04/19/21 04:13 04:21 04:30 Temperature Pulse Rate 83 82 Pulse Rate [ Bilateral Throughout] Pulse Rate [ From Monitor] Respiratory 26 H Rate Respiratory Rate [Bilateral Throughout] Blood Pressure 120/64 120/64 O2 Sat by Pulse 98 96 Oximetry O2 Sat by Pulse 97 Oximetry [ Assessment] 04/19/21 04/19/21 04/19/21 05:00 05:30 05:44 Temperature Pulse Rate 84 85 83 Pulse Rate [ Bilateral Throughout] Pulse Rate [ From Monitor] Respiratory 29 H 29 H Rate Respiratory Rate [Bilateral Throughout] Blood Pressure 120/64 127/70 120/64 O2 Sat by Pulse 99 98 Oximetry O2 Sat by Pulse Oximetry [ Assessment] 04/19/21 04/19/21 04/19/21 06:00 06:30 07:00 Temperature Pulse Rate 86 87 90 Pulse Rate [ Bilateral Throughout] Pulse Rate [ From Monitor] Respiratory 28 H 29 H 28 H Rate Respiratory Rate [Bilateral Throughout] Blood Pressure 127/70 124/69 124/69 O2 Sat by Pulse 99 98 98 Oximetry O2 Sat by Pulse Oximetry [ Assessment] 04/19/21 04/19/21 04/19/21 07:17 07:30 08:00 Temperature 99.7 F H Pulse Rate 87 91 H Pulse Rate [ Bilateral Throughout] Pulse Rate [ From Monitor] Respiratory 25 H 28 H Rate Respiratory Rate [Bilateral Throughout] Blood Pressure 122/65 122/65 O2 Sat by Pulse 97 98 Oximetry O2 Sat by Pulse Oximetry [ Assessment] 04/19/21 04/19/21 04/19/21 08:30 08:40 08:44 Temperature Pulse Rate 90 91 H Pulse Rate [ 90 Bilateral Throughout] Pulse Rate [ From Monitor] Respiratory 28 H Rate Respiratory 28 H Rate [Bilateral Throughout] Blood Pressure 118/64 118/64 O2 Sat by Pulse 99 99 Oximetry O2 Sat by Pulse Oximetry [ Assessment] 04/19/21 09:00 Temperature Pulse Rate 89 Pulse Rate [ Bilateral Throughout] Pulse Rate [ From Monitor] Respiratory 25 H Rate Respiratory Rate [Bilateral Throughout] Blood Pressure 118/64 O2 Sat by Pulse 100 Oximetry O2 Sat by Pulse Oximetry [ Assessment] Constitutional: no acute distress, other (elderly obese male with mildly increased respiratory effort at rest) Eyes: non-icteric, other ENT: oropharynx moist, other (+ midline tracheostomy) Neck: supple, no lymphadenopathy, lymphadenopathy, no JVD, other (large circumference) Effort: mildly labored Ascultation: Bilateral: diminished breath sounds, rhonchi Percussion: Bilateral: not dull Cardiovascular: regular rate and rhythm, other (tachycardia, S1,S2) Gastrointestinal: normoactive bowel sounds, soft, non-tender, non-distended (protuberant), other (Good in place) Integumentary: normal Extremities: no cyanosis, pulses normal, no ischemia or petechiae, edema (upper extremities), other Neurologic: pupils equal and round, other (follows simple prompts) Psychiatric: other (unable to assess re: AMS) CBC and BMP: 04/20/21 04:17 04/20/21 04:17 ABG, PT/INR, D-dimer: ABG ABG pH 7.469 pH Units (7.350-7.450) H 04/18/21 11:30 POC ABG pCO2 57.4 mmHg (32.0-48.0) H 04/06/21 04:49 ABG pCO2 50.9 mm Hg 04/18/21 11:30 POC ABG pO2 55.1 mmHg (83-108) L 04/06/21 04:49 ABG pO2 108.9 mm Hg (80.0-90.0) H 04/18/21 11:30 POC ABG HCO3 36.2 04/06/21 04:49 ABG O2 Saturation 98.0 % (95.0-99.0) 04/18/21 11:30 PT/INR, D-dimer PT 13.4 Sec. (12.2-14.9) 04/11/21 18:17 INR 0.92 (0.87-1.13) 04/11/21 18:17 D-Dimer 1359.12 ng/mlDDU (0-234) H 03/17/21 04:40 Abnormal lab findings: Abnormal Labs 03/08/21 03/08/21 03/08/21 20:24 20:24 20:24 WBC 22.6 H RBC 5.44 H Hgb 15.7 H Hct 49.2 H MCV MCHC RDW Plt Count Lymph % (Auto) [place] % (Auto) Lymph # (Auto) [place] # (Auto) Seg Neutrophils % Seg Neuts % (Manual) 83.0 H Lymphocytes % (Manual) 9.0 L Monocytes % (Manual) 8.0 H Nucleated RBC % Seg Neutrophils # Seg Neutrophils # Man 18.8 H Lymphocytes # (Manual) Monocytes # (Manual) 1.8 H PT 16.1 H INR 1.17 H APTT D-Dimer > 32510 H Heparin Anti-Xa Level ABG pH POC ABG pCO2 POC ABG pO2 ABG pO2 ABG HCO3 ABG O2 Saturation ABG Base Excess ABG Hemoglobin ABG Oxyhemoglobin ABG Sodium ABG Potassium ABG Glucose Oxyhemoglobin Sodium 136 L Potassium Chloride 93.9 L Carbon Dioxide BUN 29 H Creatinine Glucose 208 H POC Glucose Lactic Acid Calcium Phosphorus Magnesium Ferritin Lactate Dehydrogenase 624 H C-Reactive Protein 18.00 H NT-Pro-B Natriuret Pep 1053 H Total Protein Albumin Triglycerides Arterial Blood Glucose Urine pH Ur Specific [place] Coronavirus (PCR) 03/08/21 03/08/21 03/09/21 20:24 20:24 04:10 WBC RBC Hgb Hct MCV MCHC RDW Plt Count Lymph % (Auto) [place] % (Auto) Lymph # (Auto) [place] # (Auto) Seg Neutrophils % Seg Neuts % (Manual) Lymphocytes % (Manual) Monocytes % (Manual) Nucleated RBC % Seg Neutrophils # Seg Neutrophils # Man Lymphocytes # (Manual) Monocytes # (Manual) PT INR APTT D-Dimer Heparin Anti-Xa Level ABG pH POC ABG pCO2 POC ABG pO2 ABG pO2 ABG HCO3 ABG O2 Saturation ABG Base Excess ABG Hemoglobin ABG Oxyhemoglobin ABG Sodium ABG Potassium ABG Glucose Oxyhemoglobin Sodium Potassium Chloride Carbon Dioxide BUN Creatinine Glucose POC Glucose Lactic Acid 2.10 H* Calcium Phosphorus Magnesium Ferritin 877.5 H Lactate Dehydrogenase C-Reactive Protein NT-Pro-B Natriuret Pep Total Protein Albumin Triglycerides Arterial Blood Glucose Urine pH Ur Specific [place] 1.041 H Coronavirus (PCR) 03/09/21 03/09/21 03/09/21 07:46 08:00 13:01 WBC RBC Hgb Hct MCV MCHC RDW Plt Count Lymph % (Auto) [place] % (Auto) Lymph # (Auto) [place] # (Auto) Seg Neutrophils % Seg Neuts % (Manual) Lymphocytes % (Manual) Monocytes % (Manual) Nucleated RBC % Seg Neutrophils # Seg Neutrophils # Man Lymphocytes # (Manual) Monocytes # (Manual) PT INR APTT D-Dimer Heparin Anti-Xa Level ABG pH POC ABG pCO2 POC ABG pO2 ABG pO2 ABG HCO3 ABG O2 Saturation ABG Base Excess ABG Hemoglobin ABG Oxyhemoglobin ABG Sodium ABG Potassium ABG Glucose Oxyhemoglobin Sodium Potassium Chloride Carbon Dioxide BUN Creatinine Glucose POC Glucose 191 H 182 H Lactic Acid Calcium Phosphorus Magnesium Ferritin Lactate Dehydrogenase C-Reactive Protein NT-Pro-B Natriuret Pep Total Protein Albumin Triglycerides Arterial Blood Glucose Urine pH Ur Specific [place] Coronavirus (PCR) Positive A 03/09/21 03/09/21 03/09/21 15:19 17:48 18:10 WBC RBC Hgb Hct MCV MCHC RDW Plt Count Lymph % (Auto) [place] % (Auto) Lymph # (Auto) [place] # (Auto) Seg Neutrophils % Seg Neuts % (Manual) Lymphocytes % (Manual) Monocytes % (Manual) Nucleated RBC % Seg Neutrophils # Seg Neutrophils # Man Lymphocytes # (Manual) Monocytes # (Manual) PT INR APTT D-Dimer Heparin Anti-Xa Level ABG pH POC ABG pCO2 POC ABG pO2 ABG pO2 47.3 L ABG HCO3 26.3 H ABG O2 Saturation 83.7 L ABG Base Excess ABG Hemoglobin ABG Oxyhemoglobin ABG Sodium ABG Potassium ABG Glucose Oxyhemoglobin 82.1 L Sodium Potassium Chloride Carbon Dioxide BUN 29 H Creatinine Glucose 214 H POC Glucose 194 H Lactic Acid Calcium Phosphorus Magnesium Ferritin Lactate Dehydrogenase C-Reactive Protein NT-Pro-B Natriuret Pep Total Protein Albumin 3.4 L Triglycerides Arterial Blood Glucose Urine pH Ur Specific [place] Coronavirus (PCR) 03/09/21 03/10/21 03/10/21 20:40 04:29 04:29 WBC 20.6 H RBC 5.07 H Hgb Hct 46.2 H MCV MCHC RDW Plt Count Lymph % (Auto) [place] % (Auto) Lymph # (Auto) [place] # (Auto) Seg Neutrophils % Seg Neuts % (Manual) 94.0 H Lymphocytes % (Manual) 1.0 L Monocytes % (Manual) Nucleated RBC % 3.0 H Seg Neutrophils # Seg Neutrophils # Man 19.4 H Lymphocytes # (Manual) 0.2 L Monocytes # (Manual) 1.0 H PT INR APTT D-Dimer Heparin Anti-Xa Level ABG pH POC ABG pCO2 POC ABG pO2 ABG pO2 ABG HCO3 ABG O2 Saturation ABG Base Excess ABG Hemoglobin ABG Oxyhemoglobin ABG Sodium ABG Potassium ABG Glucose Oxyhemoglobin Sodium Potassium Chloride Carbon Dioxide BUN 29 H Creatinine Glucose 188 H POC Glucose 176 H Lactic Acid Calcium Phosphorus Magnesium Ferritin Lactate Dehydrogenase C-Reactive Protein NT-Pro-B Natriuret Pep Total Protein Albumin 3.3 L Triglycerides Arterial Blood Glucose Urine pH Ur Specific [place] Coronavirus (PCR) 03/10/21 03/10/21 03/10/21 05:22 10:27 15:25 WBC RBC Hgb Hct MCV MCHC RDW Plt Count Lymph % (Auto) [place] % (Auto) Lymph # (Auto) [place] # (Auto) Seg Neutrophils % Seg Neuts % (Manual) Lymphocytes % (Manual) Monocytes % (Manual) Nucleated RBC % Seg Neutrophils # Seg Neutrophils # Man Lymphocytes # (Manual) Monocytes # (Manual) PT INR APTT D-Dimer Heparin Anti-Xa Level ABG pH 7.488 H 7.488 H POC ABG pCO2 POC ABG pO2 ABG pO2 47.7 L 50.5 L ABG HCO3 ABG O2 Saturation 86.2 L 87.9 L ABG Base Excess ABG Hemoglobin ABG Oxyhemoglobin ABG Sodium ABG Potassium ABG Glucose Oxyhemoglobin 84.6 L 86.2 L Sodium Potassium Chloride Carbon Dioxide BUN Creatinine Glucose POC Glucose 155 H Lactic Acid Calcium Phosphorus Magnesium Ferritin Lactate Dehydrogenase C-Reactive Protein NT-Pro-B Natriuret Pep Total Protein Albumin Triglycerides Arterial Blood Glucose Urine pH Ur Specific [place] Coronavirus (PCR) 03/10/21 03/10/21 03/11/21 18:10 18:55 00:07 WBC RBC Hgb Hct MCV MCHC RDW Plt Count Lymph % (Auto) [place] % (Auto) Lymph # (Auto) [place] # (Auto) Seg Neutrophils % Seg Neuts % (Manual) Lymphocytes % (Manual) Monocytes % (Manual) Nucleated RBC % Seg Neutrophils # Seg Neutrophils # Man Lymphocytes # (Manual) Monocytes # (Manual) PT INR APTT D-Dimer Heparin Anti-Xa Level ABG pH 7.343 L POC ABG pCO2 POC ABG pO2 ABG pO2 60.4 L ABG HCO3 27.9 H ABG O2 Saturation 88.7 L ABG Base Excess ABG Hemoglobin ABG Oxyhemoglobin ABG Sodium ABG Potassium ABG Glucose Oxyhemoglobin 86.9 L Sodium Potassium Chloride Carbon Dioxide BUN Creatinine Glucose POC Glucose 187 H 139 H Lactic Acid Calcium Phosphorus Magnesium Ferritin Lactate Dehydrogenase C-Reactive Protein NT-Pro-B Natriuret Pep Total Protein Albumin Triglycerides Arterial Blood Glucose Urine pH Ur Specific [place] Coronavirus (PCR) 03/11/21 03/11/21 03/11/21 02:09 04:28 08:06 WBC RBC Hgb Hct MCV MCHC RDW Plt Count Lymph % (Auto) [place] % (Auto) Lymph # (Auto) [place] # (Auto) Seg Neutrophils % Seg Neuts % (Manual) Lymphocytes % (Manual) Monocytes % (Manual) Nucleated RBC % Seg Neutrophils # Seg Neutrophils # Man Lymphocytes # (Manual) Monocytes # (Manual) PT INR APTT D-Dimer Heparin Anti-Xa Level ABG pH 7.277 L POC ABG pCO2 55.9 H POC ABG pO2 54.4 L ABG pO2 ABG HCO3 ABG O2 Saturation ABG Base Excess ABG Hemoglobin ABG Oxyhemoglobin 83.0 L ABG Sodium ABG Potassium 4.8 H ABG Glucose 180 H Oxyhemoglobin Sodium Potassium Chloride Carbon Dioxide BUN 38 H Creatinine Glucose 249 H POC Glucose 278 H Lactic Acid Calcium Phosphorus Magnesium Ferritin Lactate Dehydrogenase C-Reactive Protein NT-Pro-B Natriuret Pep Total Protein Albumin 3.2 L Triglycerides Arterial Blood Glucose 180 H Urine pH Ur Specific [place] Coronavirus (PCR) 03/11/21 03/11/21 03/11/21 11:29 15:06 15:48 WBC RBC Hgb Hct MCV MCHC RDW Plt Count Lymph % (Auto) [place] % (Auto) Lymph # (Auto) [place] # (Auto) Seg Neutrophils % Seg Neuts % (Manual) Lymphocytes % (Manual) Monocytes % (Manual) Nucleated RBC % Seg Neutrophils # Seg Neutrophils # Man Lymphocytes # (Manual) Monocytes # (Manual) PT INR APTT D-Dimer Heparin Anti-Xa Level ABG pH 7.260 L POC ABG pCO2 POC ABG pO2 ABG pO2 53.5 L ABG HCO3 29.5 H ABG O2 Saturation 84.0 L ABG Base Excess ABG Hemoglobin ABG Oxyhemoglobin ABG Sodium ABG Potassium ABG Glucose Oxyhemoglobin 82.3 L Sodium Potassium Chloride Carbon Dioxide BUN Creatinine Glucose POC Glucose 288 H 295 H Lactic Acid Calcium Phosphorus Magnesium Ferritin Lactate Dehydrogenase C-Reactive Protein NT-Pro-B Natriuret Pep Total Protein Albumin Triglycerides Arterial Blood Glucose Urine pH Ur Specific [place] Coronavirus (PCR) 03/12/21 03/12/21 03/12/21 00:01 05:24 08:03 WBC RBC Hgb Hct MCV MCHC RDW Plt Count Lymph % (Auto) [place] % (Auto) Lymph # (Auto) [place] # (Auto) Seg Neutrophils % Seg Neuts % (Manual) Lymphocytes % (Manual) Monocytes % (Manual) Nucleated RBC % Seg Neutrophils # Seg Neutrophils # Man Lymphocytes # (Manual) Monocytes # (Manual) PT INR APTT D-Dimer Heparin Anti-Xa Level ABG pH POC ABG pCO2 POC ABG pO2 ABG pO2 ABG HCO3 ABG O2 Saturation ABG Base Excess ABG Hemoglobin ABG Oxyhemoglobin ABG Sodium ABG Potassium ABG Glucose Oxyhemoglobin Sodium 135 L Potassium Chloride Carbon Dioxide BUN 48 H Creatinine Glucose 358 H POC Glucose 304 H 310 H Lactic Acid Calcium Phosphorus Magnesium Ferritin Lactate Dehydrogenase C-Reactive Protein NT-Pro-B Natriuret Pep Total Protein 6.0 L Albumin 2.9 L Triglycerides Arterial Blood Glucose Urine pH Ur Specific [place] Coronavirus (PCR) 03/12/21 03/12/21 03/12/21 08:03 10:43 11:31 WBC 14.6 H RBC Hgb Hct MCV MCHC RDW Plt Count Lymph % (Auto) [place] % (Auto) Lymph # (Auto) [place] # (Auto) Seg Neutrophils % Seg Neuts % (Manual) Lymphocytes % (Manual) Monocytes % (Manual) Nucleated RBC % Seg Neutrophils # Seg Neutrophils # Man Lymphocytes # (Manual) Monocytes # (Manual) PT INR APTT D-Dimer Heparin Anti-Xa Level ABG pH 7.248 L POC ABG pCO2 POC ABG pO2 ABG pO2 73.7 L ABG HCO3 32.0 H ABG O2 Saturation 93.9 L ABG Base Excess ABG Hemoglobin ABG Oxyhemoglobin ABG Sodium ABG Potassium ABG Glucose Oxyhemoglobin 92.1 L Sodium Potassium Chloride Carbon Dioxide BUN Creatinine Glucose POC Glucose 359 H Lactic Acid Calcium Phosphorus Magnesium Ferritin Lactate Dehydrogenase C-Reactive Protein NT-Pro-B Natriuret Pep Total Protein Albumin Triglycerides Arterial Blood Glucose Urine pH Ur Specific [place] Coronavirus (PCR) 03/12/21 03/12/21 03/13/21 17:20 21:54 00:02 WBC RBC Hgb Hct MCV MCHC RDW Plt Count Lymph % (Auto) [place] % (Auto) Lymph # (Auto) [place] # (Auto) Seg Neutrophils % Seg Neuts % (Manual) Lymphocytes % (Manual) Monocytes % (Manual) Nucleated RBC % Seg Neutrophils # Seg Neutrophils # Man Lymphocytes # (Manual) Monocytes # (Manual) PT INR APTT D-Dimer Heparin Anti-Xa Level ABG pH 7.238 L POC ABG pCO2 71.9 H POC ABG pO2 53.6 L ABG pO2 ABG HCO3 ABG O2 Saturation ABG Base Excess ABG Hemoglobin ABG Oxyhemoglobin 84.8 L ABG Sodium 134.2 L ABG Potassium 4.9 H ABG Glucose 306 H Oxyhemoglobin Sodium Potassium Chloride Carbon Dioxide BUN Creatinine Glucose POC Glucose 374 H 308 H Lactic Acid Calcium Phosphorus Magnesium Ferritin Lactate Dehydrogenase C-Reactive Protein NT-Pro-B Natriuret Pep Total Protein Albumin Triglycerides Arterial Blood Glucose 306 H Urine pH Ur Specific [place] Coronavirus (PCR) 03/13/21 03/13/21 03/13/21 05:22 05:44 05:44 WBC 13.9 H RBC Hgb Hct MCV MCHC RDW Plt Count Lymph % (Auto) [place] % (Auto) Lymph # (Auto) [place] # (Auto) Seg Neutrophils % Seg Neuts % (Manual) Lymphocytes % (Manual) Monocytes % (Manual) Nucleated RBC % Seg Neutrophils # Seg Neutrophils # Man Lymphocytes # (Manual) Monocytes # (Manual) PT INR APTT D-Dimer 3567.97 H Heparin Anti-Xa Level ABG pH POC ABG pCO2 POC ABG pO2 ABG pO2 ABG HCO3 ABG O2 Saturation ABG Base Excess ABG Hemoglobin ABG Oxyhemoglobin ABG Sodium ABG Potassium ABG Glucose Oxyhemoglobin Sodium Potassium Chloride Carbon Dioxide BUN Creatinine Glucose POC Glucose 316 H Lactic Acid Calcium Phosphorus Magnesium Ferritin Lactate Dehydrogenase C-Reactive Protein NT-Pro-B Natriuret Pep Total Protein Albumin Triglycerides Arterial Blood Glucose Urine pH Ur Specific [place] Coronavirus (PCR) 03/13/21 03/13/21 03/13/21 05:44 05:44 11:15 WBC RBC Hgb Hct MCV MCHC RDW Plt Count Lymph % (Auto) [place] % (Auto) Lymph # (Auto) [place] # (Auto) Seg Neutrophils % Seg Neuts % (Manual) Lymphocytes % (Manual) Monocytes % (Manual) Nucleated RBC % Seg Neutrophils # Seg Neutrophils # Man Lymphocytes # (Manual) Monocytes # (Manual) PT INR APTT D-Dimer Heparin Anti-Xa Level ABG pH 7.310 L POC ABG pCO2 POC ABG pO2 ABG pO2 52.3 L ABG HCO3 34.1 H ABG O2 Saturation 86.8 L ABG Base Excess 5.5 H ABG Hemoglobin 13.8 L ABG Oxyhemoglobin ABG Sodium ABG Potassium ABG Glucose Oxyhemoglobin 85.1 L Sodium Potassium Chloride Carbon Dioxide BUN Creatinine Glucose POC Glucose Lactic Acid Calcium Phosphorus Magnesium Ferritin 858.7 H Lactate Dehydrogenase 348 H C-Reactive Protein 2.80 H NT-Pro-B Natriuret Pep Total Protein Albumin Triglycerides Arterial Blood Glucose Urine pH Ur Specific [place] Coronavirus (PCR) 03/13/21 03/13/21 03/13/21 11:21 15:47 19:23 WBC RBC Hgb Hct MCV MCHC RDW Plt Count Lymph % (Auto) [place] % (Auto) Lymph # (Auto) [place] # (Auto) Seg Neutrophils % Seg Neuts % (Manual) Lymphocytes % (Manual) Monocytes % (Manual) Nucleated RBC % Seg Neutrophils # Seg Neutrophils # Man Lymphocytes # (Manual) Monocytes # (Manual) PT INR APTT D-Dimer Heparin Anti-Xa Level ABG pH POC ABG pCO2 POC ABG pO2 ABG pO2 ABG HCO3 ABG O2 Saturation ABG Base Excess ABG Hemoglobin ABG Oxyhemoglobin ABG Sodium ABG Potassium ABG Glucose Oxyhemoglobin Sodium 136 L Potassium 5.9 H Chloride Carbon Dioxide BUN 50 H Creatinine Glucose 397 H POC Glucose 322 H 317 H Lactic Acid Calcium Phosphorus Magnesium Ferritin Lactate Dehydrogenase C-Reactive Protein NT-Pro-B Natriuret Pep Total Protein Albumin Triglycerides Arterial Blood Glucose Urine pH Ur Specific [place] Coronavirus (PCR) 03/13/21 03/14/21 03/14/21 23:46 05:32 05:50 WBC 11.6 H RBC Hgb Hct MCV MCHC RDW Plt Count Lymph % (Auto) [place] % (Auto) Lymph # (Auto) [place] # (Auto) Seg Neutrophils % Seg Neuts % (Manual) Lymphocytes % (Manual) Monocytes % (Manual) Nucleated RBC % Seg Neutrophils # Seg Neutrophils # Man Lymphocytes # (Manual) Monocytes # (Manual) PT INR APTT D-Dimer Heparin Anti-Xa Level ABG pH POC ABG pCO2 POC ABG pO2 ABG pO2 ABG HCO3 ABG O2 Saturation ABG Base Excess ABG Hemoglobin ABG Oxyhemoglobin ABG Sodium ABG Potassium ABG Glucose Oxyhemoglobin Sodium Potassium Chloride Carbon Dioxide BUN Creatinine Glucose POC Glucose 332 H 316 H Lactic Acid Calcium Phosphorus Magnesium Ferritin Lactate Dehydrogenase C-Reactive Protein NT-Pro-B Natriuret Pep Total Protein Albumin Triglycerides Arterial Blood Glucose Urine pH Ur Specific [place] Coronavirus (PCR) 03/14/21 03/14/21 03/14/21 05:50 11:33 16:53 WBC RBC Hgb Hct MCV MCHC RDW Plt Count Lymph % (Auto) [place] % (Auto) Lymph # (Auto) [place] # (Auto) Seg Neutrophils % Seg Neuts % (Manual) Lymphocytes % (Manual) Monocytes % (Manual) Nucleated RBC % Seg Neutrophils # Seg Neutrophils # Man Lymphocytes # (Manual) Monocytes # (Manual) PT INR APTT D-Dimer Heparin Anti-Xa Level ABG pH POC ABG pCO2 POC ABG pO2 ABG pO2 ABG HCO3 ABG O2 Saturation ABG Base Excess ABG Hemoglobin ABG Oxyhemoglobin ABG Sodium ABG Potassium ABG Glucose Oxyhemoglobin Sodium Potassium 5.9 H Chloride Carbon Dioxide 31 H BUN 48 H Creatinine Glucose 380 H POC Glucose 315 H 235 H Lactic Acid Calcium Phosphorus Magnesium 3.40 H Ferritin Lactate Dehydrogenase C-Reactive Protein NT-Pro-B Natriuret Pep Total Protein Albumin Triglycerides Arterial Blood Glucose Urine pH Ur Specific [place] Coronavirus (PCR) 03/14/21 03/14/21 03/15/21 18:34 23:27 01:22 WBC RBC Hgb Hct 46.3 H MCV MCHC RDW Plt Count Lymph % (Auto) [place] % (Auto) Lymph # (Auto) [place] # (Auto) Seg Neutrophils % Seg Neuts % (Manual) Lymphocytes % (Manual) Monocytes % (Manual) Nucleated RBC % Seg Neutrophils # Seg Neutrophils # Man Lymphocytes # (Manual) Monocytes # (Manual) PT INR APTT D-Dimer Heparin Anti-Xa Level ABG pH POC ABG pCO2 POC ABG pO2 ABG pO2 ABG HCO3 ABG O2 Saturation ABG Base Excess ABG Hemoglobin ABG Oxyhemoglobin ABG Sodium ABG Potassium ABG Glucose Oxyhemoglobin Sodium 146 H Potassium Chloride Carbon Dioxide 34 H BUN 49 H Creatinine Glucose 285 H POC Glucose 203 H Lactic Acid Calcium Phosphorus Magnesium Ferritin Lactate Dehydrogenase C-Reactive Protein NT-Pro-B Natriuret Pep Total Protein Albumin Triglycerides Arterial Blood Glucose Urine pH Ur Specific [place] Coronavirus (PCR) 03/15/21 03/15/21 03/15/21 04:00 06:06 06:06 WBC RBC Hgb Hct MCV MCHC RDW Plt Count Lymph % (Auto) [place] % (Auto) Lymph # (Auto) [place] # (Auto) Seg Neutrophils % Seg Neuts % (Manual) Lymphocytes % (Manual) Monocytes % (Manual) Nucleated RBC % Seg Neutrophils # Seg Neutrophils # Man Lymphocytes # (Manual) Monocytes # (Manual) PT INR APTT D-Dimer 1781.79 H Heparin Anti-Xa Level ABG pH POC ABG pCO2 POC ABG pO2 ABG pO2 ABG HCO3 ABG O2 Saturation ABG Base Excess ABG Hemoglobin ABG Oxyhemoglobin ABG Sodium ABG Potassium ABG Glucose Oxyhemoglobin Sodium 148 H Potassium 5.7 H D Chloride 108.0 H Carbon Dioxide 31 H BUN 46 H Creatinine Glucose 139 H POC Glucose Lactic Acid Calcium Phosphorus 4.80 H D Magnesium 3.00 H Ferritin 976.4 H Lactate Dehydrogenase 630 H C-Reactive Protein NT-Pro-B Natriuret Pep Total Protein Albumin Triglycerides Arterial Blood Glucose Urine pH Ur Specific [place] Coronavirus (PCR) 03/15/21 03/15/21 03/15/21 11:56 14:05 17:09 WBC RBC Hgb Hct MCV MCHC RDW Plt Count Lymph % (Auto) [place] % (Auto) Lymph # (Auto) [place] # (Auto) Seg Neutrophils % Seg Neuts % (Manual) Lymphocytes % (Manual) Monocytes % (Manual) Nucleated RBC % Seg Neutrophils # Seg Neutrophils # Man Lymphocytes # (Manual) Monocytes # (Manual) PT INR APTT D-Dimer Heparin Anti-Xa Level ABG pH POC ABG pCO2 POC ABG pO2 ABG pO2 52.1 L ABG HCO3 36.6 H ABG O2 Saturation 87.6 L ABG Base Excess 9.5 H ABG Hemoglobin ABG Oxyhemoglobin ABG Sodium ABG Potassium ABG Glucose Oxyhemoglobin 85.7 L Sodium Potassium Chloride Carbon Dioxide BUN Creatinine Glucose POC Glucose 219 H 263 H Lactic Acid Calcium Phosphorus Magnesium Ferritin Lactate Dehydrogenase C-Reactive Protein NT-Pro-B Natriuret Pep Total Protein Albumin Triglycerides Arterial Blood Glucose Urine pH Ur Specific [place] Coronavirus (PCR) 03/16/21 03/16/21 03/16/21 00:32 04:11 04:11 WBC 11.9 H RBC Hgb Hct MCV MCHC 30 L RDW Plt Count Lymph % (Auto) [place] % (Auto) Lymph # (Auto) [place] # (Auto) Seg Neutrophils % Seg Neuts % (Manual) Lymphocytes % (Manual) Monocytes % (Manual) Nucleated RBC % Seg Neutrophils # Seg Neutrophils # Man Lymphocytes # (Manual) Monocytes # (Manual) PT INR APTT D-Dimer Heparin Anti-Xa Level ABG pH POC ABG pCO2 POC ABG pO2 ABG pO2 ABG HCO3 ABG O2 Saturation ABG Base Excess ABG Hemoglobin ABG Oxyhemoglobin ABG Sodium ABG Potassium ABG Glucose Oxyhemoglobin Sodium 151 H Potassium Chloride Carbon Dioxide 35 H BUN 48 H Creatinine Glucose 152 H POC Glucose 165 H Lactic Acid Calcium Phosphorus Magnesium Ferritin Lactate Dehydrogenase C-Reactive Protein NT-Pro-B Natriuret Pep Total Protein Albumin Triglycerides Arterial Blood Glucose Urine pH Ur Specific [place] Coronavirus (PCR) 03/16/21 03/16/21 03/16/21 04:11 05:26 11:35 WBC RBC Hgb Hct MCV MCHC RDW Plt Count Lymph % (Auto) [place] % (Auto) Lymph # (Auto) [place] # (Auto) Seg Neutrophils % Seg Neuts % (Manual) Lymphocytes % (Manual) Monocytes % (Manual) Nucleated RBC % Seg Neutrophils # Seg Neutrophils # Man Lymphocytes # (Manual) Monocytes # (Manual) PT INR APTT D-Dimer Heparin Anti-Xa Level ABG pH POC ABG pCO2 POC ABG pO2 ABG pO2 ABG HCO3 ABG O2 Saturation ABG Base Excess ABG Hemoglobin ABG Oxyhemoglobin ABG Sodium ABG Potassium ABG Glucose Oxyhemoglobin Sodium Potassium Chloride Carbon Dioxide BUN Creatinine Glucose POC Glucose 162 H 187 H Lactic Acid Calcium Phosphorus Magnesium Ferritin Lactate Dehydrogenase C-Reactive Protein NT-Pro-B Natriuret Pep Total Protein Albumin Triglycerides 267 H Arterial Blood Glucose Urine pH Ur Specific [place] Coronavirus (PCR) 03/16/21 03/16/21 03/16/21 17:29 22:25 23:22 WBC RBC Hgb Hct MCV MCHC RDW Plt Count Lymph % (Auto) [place] % (Auto) Lymph # (Auto) [place] # (Auto) Seg Neutrophils % Seg Neuts % (Manual) Lymphocytes % (Manual) Monocytes % (Manual) Nucleated RBC % Seg Neutrophils # Seg Neutrophils # Man Lymphocytes # (Manual) Monocytes # (Manual) PT INR APTT D-Dimer Heparin Anti-Xa Level ABG pH POC ABG pCO2 POC ABG pO2 ABG pO2 ABG HCO3 ABG O2 Saturation ABG Base Excess ABG Hemoglobin ABG Oxyhemoglobin ABG Sodium ABG Potassium ABG Glucose Oxyhemoglobin Sodium Potassium Chloride Carbon Dioxide BUN Creatinine Glucose POC Glucose 237 H 165 H 189 H Lactic Acid Calcium Phosphorus Magnesium Ferritin Lactate Dehydrogenase C-Reactive Protein NT-Pro-B Natriuret Pep Total Protein Albumin Triglycerides Arterial Blood Glucose Urine pH Ur Specific [place] Coronavirus (PCR) 03/17/21 03/17/21 03/17/21 04:40 04:40 04:40 WBC 14.1 H RBC Hgb Hct MCV MCHC RDW 15.3 H Plt Count Lymph % (Auto) 12.6 L [place] % (Auto) 11.3 H Lymph # (Auto) [place] # (Auto) 1.6 H Seg Neutrophils % 74.9 H Seg Neuts % (Manual) Lymphocytes % (Manual) Monocytes % (Manual) Nucleated RBC % Seg Neutrophils # 10.5 H Seg Neutrophils # Man Lymphocytes # (Manual) Monocytes # (Manual) PT INR APTT D-Dimer 1359.12 H Heparin Anti-Xa Level ABG pH POC ABG pCO2 POC ABG pO2 ABG pO2 ABG HCO3 ABG O2 Saturation ABG Base Excess ABG Hemoglobin ABG Oxyhemoglobin ABG Sodium ABG Potassium ABG Glucose Oxyhemoglobin Sodium 148 H Potassium Chloride 107.5 H Carbon Dioxide 33 H BUN 42 H Creatinine Glucose 183 H POC Glucose Lactic Acid Calcium Phosphorus Magnesium 2.70 H Ferritin Lactate Dehydrogenase C-Reactive Protein NT-Pro-B Natriuret Pep Total Protein Albumin Triglycerides Arterial Blood Glucose Urine pH Ur Specific [place] Coronavirus (PCR) 03/17/21 03/17/21 03/17/21 05:53 11:05 11:51 WBC RBC Hgb Hct MCV MCHC RDW Plt Count Lymph % (Auto) [place] % (Auto) Lymph # (Auto) [place] # (Auto) Seg Neutrophils % Seg Neuts % (Manual) Lymphocytes % (Manual) Monocytes % (Manual) Nucleated RBC % Seg Neutrophils # Seg Neutrophils # Man Lymphocytes # (Manual) Monocytes # (Manual) PT INR APTT D-Dimer Heparin Anti-Xa Level ABG pH POC ABG pCO2 POC ABG pO2 ABG pO2 ABG HCO3 35.7 H ABG O2 Saturation ABG Base Excess 8.7 H ABG Hemoglobin ABG Oxyhemoglobin ABG Sodium ABG Potassium ABG Glucose Oxyhemoglobin 94.2 L Sodium Potassium Chloride Carbon Dioxide BUN Creatinine Glucose POC Glucose 176 H 197 H Lactic Acid Calcium Phosphorus Magnesium Ferritin Lactate Dehydrogenase C-Reactive Protein NT-Pro-B Natriuret Pep Total Protein Albumin Triglycerides Arterial Blood Glucose Urine pH Ur Specific [place] Coronavirus (PCR) 03/17/21 03/17/21 03/17/21 16:54 21:10 23:33 WBC RBC Hgb Hct MCV MCHC RDW Plt Count Lymph % (Auto) [place] % (Auto) Lymph # (Auto) [place] # (Auto) Seg Neutrophils % Seg Neuts % (Manual) Lymphocytes % (Manual) Monocytes % (Manual) Nucleated RBC % Seg Neutrophils # Seg Neutrophils # Man Lymphocytes # (Manual) Monocytes # (Manual) PT INR APTT D-Dimer Heparin Anti-Xa Level ABG pH POC ABG pCO2 POC ABG pO2 ABG pO2 ABG HCO3 ABG O2 Saturation ABG Base Excess ABG Hemoglobin ABG Oxyhemoglobin ABG Sodium ABG Potassium ABG Glucose Oxyhemoglobin Sodium Potassium Chloride Carbon Dioxide BUN Creatinine Glucose POC Glucose 135 H 160 H 138 H Lactic Acid Calcium Phosphorus Magnesium Ferritin Lactate Dehydrogenase C-Reactive Protein NT-Pro-B Natriuret Pep Total Protein Albumin Triglycerides Arterial Blood Glucose Urine pH Ur Specific [place] Coronavirus (PCR) 03/18/21 03/18/21 03/18/21 04:18 04:50 05:43 WBC RBC Hgb Hct MCV MCHC RDW Plt Count Lymph % (Auto) [place] % (Auto) Lymph # (Auto) [place] # (Auto) Seg Neutrophils % Seg Neuts % (Manual) Lymphocytes % (Manual) Monocytes % (Manual) Nucleated RBC % Seg Neutrophils # Seg Neutrophils # Man Lymphocytes # (Manual) Monocytes # (Manual) PT INR APTT D-Dimer Heparin Anti-Xa Level ABG pH POC ABG pCO2 POC ABG pO2 ABG pO2 59.8 L ABG HCO3 36.5 H ABG O2 Saturation 90.7 L ABG Base Excess 9.4 H ABG Hemoglobin 12.0 L ABG Oxyhemoglobin ABG Sodium ABG Potassium ABG Glucose Oxyhemoglobin 88.9 L Sodium Potassium Chloride 107.2 H Carbon Dioxide 34 H BUN 38 H Creatinine 0.7 L Glucose 136 H POC Glucose 128 H Lactic Acid Calcium Phosphorus Magnesium Ferritin Lactate Dehydrogenase C-Reactive Protein NT-Pro-B Natriuret Pep Total Protein Albumin Triglycerides Arterial Blood Glucose Urine pH Ur Specific [place] Coronavirus (PCR) 03/18/21 03/18/21 03/18/21 11:20 17:35 23:35 WBC RBC Hgb Hct MCV MCHC RDW Plt Count Lymph % (Auto) [place] % (Auto) Lymph # (Auto) [place] # (Auto) Seg Neutrophils % Seg Neuts % (Manual) Lymphocytes % (Manual) Monocytes % (Manual) Nucleated RBC % Seg Neutrophils # Seg Neutrophils # Man Lymphocytes # (Manual) Monocytes # (Manual) PT INR APTT D-Dimer Heparin Anti-Xa Level ABG pH POC ABG pCO2 POC ABG pO2 ABG pO2 70.7 L ABG HCO3 33.6 H ABG O2 Saturation ABG Base Excess 8.0 H ABG Hemoglobin ABG Oxyhemoglobin ABG Sodium ABG Potassium ABG Glucose Oxyhemoglobin 93.7 L Sodium Potassium Chloride Carbon Dioxide BUN Creatinine Glucose POC Glucose 189 H 144 H Lactic Acid Calcium Phosphorus Magnesium Ferritin Lactate Dehydrogenase C-Reactive Protein NT-Pro-B Natriuret Pep Total Protein Albumin Triglycerides Arterial Blood Glucose Urine pH Ur Specific [place] Coronavirus (PCR) 03/19/21 03/19/21 03/19/21 02:35 04:20 04:20 WBC 14.0 H RBC Hgb Hct MCV MCHC RDW Plt Count Lymph % (Auto) [place] % (Auto) Lymph # (Auto) [place] # (Auto) Seg Neutrophils % Seg Neuts % (Manual) Lymphocytes % (Manual) Monocytes % (Manual) Nucleated RBC % Seg Neutrophils # Seg Neutrophils # Man Lymphocytes # (Manual) Monocytes # (Manual) PT INR APTT D-Dimer Heparin Anti-Xa Level ABG pH POC ABG pCO2 POC ABG pO2 ABG pO2 ABG HCO3 32.0 H ABG O2 Saturation ABG Base Excess 5.2 H ABG Hemoglobin 13.6 L ABG Oxyhemoglobin ABG Sodium ABG Potassium ABG Glucose Oxyhemoglobin 94.6 L Sodium 146 H Potassium Chloride 109.3 H Carbon Dioxide BUN 36 H Creatinine Glucose 203 H POC Glucose Lactic Acid Calcium Phosphorus Magnesium Ferritin Lactate Dehydrogenase C-Reactive Protein NT-Pro-B Natriuret Pep Total Protein Albumin Triglycerides 254 H Arterial Blood Glucose Urine pH Ur Specific [place] Coronavirus (PCR) 03/19/21 03/19/21 03/19/21 05:45 11:36 23:51 WBC RBC Hgb Hct MCV MCHC RDW Plt Count Lymph % (Auto) [place] % (Auto) Lymph # (Auto) [place] # (Auto) Seg Neutrophils % Seg Neuts % (Manual) Lymphocytes % (Manual) Monocytes % (Manual) Nucleated RBC % Seg Neutrophils # Seg Neutrophils # Man Lymphocytes # (Manual) Monocytes # (Manual) PT INR APTT D-Dimer Heparin Anti-Xa Level ABG pH POC ABG pCO2 POC ABG pO2 ABG pO2 ABG HCO3 ABG O2 Saturation ABG Base Excess ABG Hemoglobin ABG Oxyhemoglobin ABG Sodium ABG Potassium ABG Glucose Oxyhemoglobin Sodium Potassium Chloride Carbon Dioxide BUN Creatinine Glucose POC Glucose 164 H 172 H 140 H Lactic Acid Calcium Phosphorus Magnesium Ferritin Lactate Dehydrogenase C-Reactive Protein NT-Pro-B Natriuret Pep Total Protein Albumin Triglycerides Arterial Blood Glucose Urine pH Ur Specific [place] Coronavirus (PCR) 03/20/21 03/20/21 03/20/21 03:29 04:45 04:45 WBC RBC Hgb Hct MCV 95 H MCHC RDW 15.7 H Plt Count Lymph % (Auto) [place] % (Auto) Lymph # (Auto) [place] # (Auto) Seg Neutrophils % Seg Neuts % (Manual) Lymphocytes % (Manual) Monocytes % (Manual) Nucleated RBC % Seg Neutrophils # Seg Neutrophils # Man Lymphocytes # (Manual) Monocytes # (Manual) PT INR APTT D-Dimer Heparin Anti-Xa Level ABG pH 7.349 L POC ABG pCO2 POC ABG pO2 ABG pO2 ABG HCO3 33.7 H ABG O2 Saturation ABG Base Excess 6.4 H ABG Hemoglobin 11.8 L ABG Oxyhemoglobin ABG Sodium ABG Potassium ABG Glucose Oxyhemoglobin 93.9 L Sodium 146 H Potassium 5.5 H Chloride 111.1 H Carbon Dioxide BUN 34 H Creatinine 0.7 L Glucose 145 H POC Glucose Lactic Acid Calcium Phosphorus Magnesium 2.50 H Ferritin Lactate Dehydrogenase C-Reactive Protein NT-Pro-B Natriuret Pep Total Protein Albumin Triglycerides Arterial Blood Glucose Urine pH Ur Specific [place] Coronavirus (PCR) 03/20/21 03/20/21 03/20/21 05:41 09:08 11:54 WBC RBC Hgb Hct MCV MCHC RDW Plt Count Lymph % (Auto) [place] % (Auto) Lymph # (Auto) [place] # (Auto) Seg Neutrophils % Seg Neuts % (Manual) Lymphocytes % (Manual) Monocytes % (Manual) Nucleated RBC % Seg Neutrophils # Seg Neutrophils # Man Lymphocytes # (Manual) Monocytes # (Manual) PT INR APTT D-Dimer Heparin Anti-Xa Level ABG pH POC ABG pCO2 POC ABG pO2 ABG pO2 ABG HCO3 ABG O2 Saturation ABG Base Excess ABG Hemoglobin ABG Oxyhemoglobin ABG Sodium ABG Potassium ABG Glucose Oxyhemoglobin Sodium Potassium Chloride Carbon Dioxide BUN Creatinine Glucose POC Glucose 108 H 132 H 162 H Lactic Acid Calcium Phosphorus Magnesium Ferritin Lactate Dehydrogenase C-Reactive Protein NT-Pro-B Natriuret Pep Total Protein Albumin Triglycerides Arterial Blood Glucose Urine pH Ur Specific [place] Coronavirus (PCR) 03/20/21 03/21/21 03/21/21 17:28 00:31 04:44 WBC RBC Hgb Hct MCV MCHC RDW Plt Count Lymph % (Auto) [place] % (Auto) Lymph # (Auto) [place] # (Auto) Seg Neutrophils % Seg Neuts % (Manual) Lymphocytes % (Manual) Monocytes % (Manual) Nucleated RBC % Seg Neutrophils # Seg Neutrophils # Man Lymphocytes # (Manual) Monocytes # (Manual) PT INR APTT D-Dimer Heparin Anti-Xa Level ABG pH POC ABG pCO2 POC ABG pO2 ABG pO2 ABG HCO3 ABG O2 Saturation ABG Base Excess ABG Hemoglobin ABG Oxyhemoglobin ABG Sodium ABG Potassium ABG Glucose Oxyhemoglobin Sodium Potassium Chloride 108.3 H Carbon Dioxide BUN 30 H Creatinine 0.7 L Glucose POC Glucose 160 H 122 H Lactic Acid Calcium Phosphorus Magnesium Ferritin Lactate Dehydrogenase C-Reactive Protein NT-Pro-B Natriuret Pep Total Protein Albumin Triglycerides Arterial Blood Glucose Urine pH Ur Specific [place] Coronavirus (PCR) 03/21/21 03/21/21 03/21/21 09:18 10:09 13:20 WBC RBC Hgb Hct MCV MCHC RDW Plt Count Lymph % (Auto) [place] % (Auto) Lymph # (Auto) [place] # (Auto) Seg Neutrophils % Seg Neuts % (Manual) Lymphocytes % (Manual) Monocytes % (Manual) Nucleated RBC % Seg Neutrophils # Seg Neutrophils # Man Lymphocytes # (Manual) Monocytes # (Manual) PT INR APTT D-Dimer Heparin Anti-Xa Level ABG pH POC ABG pCO2 POC ABG pO2 ABG pO2 60.7 L ABG HCO3 30.6 H ABG O2 Saturation 93.6 L ABG Base Excess 5.3 H ABG Hemoglobin ABG Oxyhemoglobin ABG Sodium ABG Potassium ABG Glucose Oxyhemoglobin 91.7 L Sodium Potassium Chloride Carbon Dioxide BUN Creatinine Glucose POC Glucose 169 H 122 H Lactic Acid Calcium Phosphorus Magnesium Ferritin Lactate Dehydrogenase C-Reactive Protein NT-Pro-B Natriuret Pep Total Protein Albumin Triglycerides Arterial Blood Glucose Urine pH Ur Specific [place] Coronavirus (PCR) 03/21/21 03/21/2122 17:25 22:41 23:52 WBC RBC Hgb Hct MCV MCHC RDW Plt Count Lymph % (Auto) [place] % (Auto) Lymph # (Auto) [place] # (Auto) Seg Neutrophils % Seg Neuts % (Manual) Lymphocytes % (Manual) Monocytes % (Manual) Nucleated RBC % Seg Neutrophils # Seg Neutrophils # Man Lymphocytes # (Manual) Monocytes # (Manual) PT INR APTT D-Dimer Heparin Anti-Xa Level ABG pH POC ABG pCO2 POC ABG pO2 ABG pO2 ABG HCO3 ABG O2 Saturation ABG Base Excess ABG Hemoglobin ABG Oxyhemoglobin ABG Sodium ABG Potassium ABG Glucose Oxyhemoglobin Sodium Potassium Chloride Carbon Dioxide BUN Creatinine Glucose POC Glucose 121 H 139 H 140 H Lactic Acid Calcium Phosphorus Magnesium Ferritin Lactate Dehydrogenase C-Reactive Protein NT-Pro-B Natriuret Pep Total Protein Albumin Triglycerides Arterial Blood Glucose Urine pH Ur Specific [place] Coronavirus (PCR) 03/22/21 03/22/21 03/22/21 05:58 07:26 07:26 WBC RBC Hgb Hct MCV MCHC 31 L RDW 16.1 H Plt Count Lymph % (Auto) [place] % (Auto) Lymph # (Auto) [place] # (Auto) Seg Neutrophils % Seg Neuts % (Manual) Lymphocytes % (Manual) Monocytes % (Manual) Nucleated RBC % Seg Neutrophils # Seg Neutrophils # Man Lymphocytes # (Manual) Monocytes # (Manual) PT INR APTT D-Dimer Heparin Anti-Xa Level ABG pH POC ABG pCO2 POC ABG pO2 ABG pO2 ABG HCO3 ABG O2 Saturation ABG Base Excess ABG Hemoglobin ABG Oxyhemoglobin ABG Sodium ABG Potassium ABG Glucose Oxyhemoglobin Sodium Potassium Chloride 108.5 H Carbon Dioxide BUN 44 H Creatinine Glucose 120 H POC Glucose 131 H Lactic Acid Calcium Phosphorus 5.80 H Magnesium 2.80 H Ferritin Lactate Dehydrogenase C-Reactive Protein NT-Pro-B Natriuret Pep Total Protein Albumin Triglycerides 305 H Arterial Blood Glucose Urine pH Ur Specific [place] Coronavirus (PCR) 03/22/21 03/22/21 03/22/21 09:38 11:15 16:01 WBC RBC Hgb Hct MCV MCHC RDW Plt Count Lymph % (Auto) [place] % (Auto) Lymph # (Auto) [place] # (Auto) Seg Neutrophils % Seg Neuts % (Manual) Lymphocytes % (Manual) Monocytes % (Manual) Nucleated RBC % Seg Neutrophils # Seg Neutrophils # Man Lymphocytes # (Manual) Monocytes # (Manual) PT INR APTT D-Dimer Heparin Anti-Xa Level ABG pH POC ABG pCO2 POC ABG pO2 ABG pO2 70.0 L ABG HCO3 30.0 H ABG O2 Saturation 94.6 L ABG Base Excess 3.6 H ABG Hemoglobin 13.5 L ABG Oxyhemoglobin ABG Sodium ABG Potassium ABG Glucose Oxyhemoglobin 92.5 L Sodium Potassium Chloride Carbon Dioxide BUN Creatinine Glucose POC Glucose 186 H 148 H Lactic Acid Calcium Phosphorus Magnesium Ferritin Lactate Dehydrogenase C-Reactive Protein NT-Pro-B Natriuret Pep Total Protein Albumin Triglycerides Arterial Blood Glucose Urine pH Ur Specific [place] Coronavirus (PCR) 03/22/21 03/22/21 03/23/21 21:13 23:48 07:04 WBC 11.7 H RBC Hgb Hct MCV 95 H MCHC RDW 16.1 H Plt Count Lymph % (Auto) [place] % (Auto) Lymph # (Auto) [place] # (Auto) Seg Neutrophils % Seg Neuts % (Manual) Lymphocytes % (Manual) Monocytes % (Manual) Nucleated RBC % Seg Neutrophils # Seg Neutrophils # Man Lymphocytes # (Manual) Monocytes # (Manual) PT INR APTT D-Dimer Heparin Anti-Xa Level ABG pH POC ABG pCO2 POC ABG pO2 ABG pO2 ABG HCO3 ABG O2 Saturation ABG Base Excess ABG Hemoglobin ABG Oxyhemoglobin ABG Sodium ABG Potassium ABG Glucose Oxyhemoglobin Sodium Potassium Chloride Carbon Dioxide BUN Creatinine Glucose POC Glucose 121 H 114 H Lactic Acid Calcium Phosphorus Magnesium Ferritin Lactate Dehydrogenase C-Reactive Protein NT-Pro-B Natriuret Pep Total Protein Albumin Triglycerides Arterial Blood Glucose Urine pH Ur Specific [place] Coronavirus (PCR) 03/23/21 03/23/21 03/23/21 07:04 08:35 11:19 WBC RBC Hgb Hct MCV MCHC RDW Plt Count Lymph % (Auto) [place] % (Auto) Lymph # (Auto) [place] # (Auto) Seg Neutrophils % Seg Neuts % (Manual) Lymphocytes % (Manual) Monocytes % (Manual) Nucleated RBC % Seg Neutrophils # Seg Neutrophils # Man Lymphocytes # (Manual) Monocytes # (Manual) PT INR APTT D-Dimer Heparin Anti-Xa Level ABG pH 7.345 L POC ABG pCO2 POC ABG pO2 ABG pO2 167.9 H ABG HCO3 32.2 H ABG O2 Saturation ABG Base Excess 4.8 H ABG Hemoglobin 13.4 L ABG Oxyhemoglobin ABG Sodium ABG Potassium ABG Glucose Oxyhemoglobin Sodium 148 H Potassium Chloride 111.3 H Carbon Dioxide 31 H BUN 31 H Creatinine Glucose 131 H POC Glucose 165 H Lactic Acid Calcium Phosphorus Magnesium 2.50 H Ferritin Lactate Dehydrogenase C-Reactive Protein NT-Pro-B Natriuret Pep Total Protein Albumin Triglycerides Arterial Blood Glucose Urine pH Ur Specific [place] Coronavirus (PCR) 03/23/21 03/23/21 03/24/21 16:48 20:52 00:07 WBC RBC Hgb Hct MCV MCHC RDW Plt Count Lymph % (Auto) [place] % (Auto) Lymph # (Auto) [place] # (Auto) Seg Neutrophils % Seg Neuts % (Manual) Lymphocytes % (Manual) Monocytes % (Manual) Nucleated RBC % Seg Neutrophils # Seg Neutrophils # Man Lymphocytes # (Manual) Monocytes # (Manual) PT INR APTT D-Dimer Heparin Anti-Xa Level ABG pH POC ABG pCO2 POC ABG pO2 ABG pO2 ABG HCO3 ABG O2 Saturation ABG Base Excess ABG Hemoglobin ABG Oxyhemoglobin ABG Sodium ABG Potassium ABG Glucose Oxyhemoglobin Sodium Potassium Chloride Carbon Dioxide BUN Creatinine Glucose POC Glucose 160 H 127 H 147 H Lactic Acid Calcium Phosphorus Magnesium Ferritin Lactate Dehydrogenase C-Reactive Protein NT-Pro-B Natriuret Pep Total Protein Albumin Triglycerides Arterial Blood Glucose Urine pH Ur Specific [place] Coronavirus (PCR) 03/24/21 03/24/21 03/24/21 04:34 04:34 05:20 WBC 13.3 H RBC Hgb Hct MCV MCHC 31 L RDW 16.1 H Plt Count Lymph % (Auto) [place] % (Auto) Lymph # (Auto) [place] # (Auto) Seg Neutrophils % Seg Neuts % (Manual) Lymphocytes % (Manual) Monocytes % (Manual) Nucleated RBC % Seg Neutrophils # Seg Neutrophils # Man Lymphocytes # (Manual) Monocytes # (Manual) PT INR APTT D-Dimer Heparin Anti-Xa Level ABG pH POC ABG pCO2 POC ABG pO2 ABG pO2 ABG HCO3 ABG O2 Saturation ABG Base Excess ABG Hemoglobin ABG Oxyhemoglobin ABG Sodium ABG Potassium ABG Glucose Oxyhemoglobin Sodium Potassium 5.2 H Chloride Carbon Dioxide BUN 28 H Creatinine 0.7 L Glucose 152 H POC Glucose 141 H Lactic Acid Calcium Phosphorus Magnesium Ferritin Lactate Dehydrogenase C-Reactive Protein NT-Pro-B Natriuret Pep Total Protein Albumin Triglycerides Arterial Blood Glucose Urine pH Ur Specific [place] Coronavirus (PCR) 03/24/21 03/24/21 03/24/21 09:40 11:38 16:45 WBC RBC Hgb Hct MCV MCHC RDW Plt Count Lymph % (Auto) [place] % (Auto) Lymph # (Auto) [place] # (Auto) Seg Neutrophils % Seg Neuts % (Manual) Lymphocytes % (Manual) Monocytes % (Manual) Nucleated RBC % Seg Neutrophils # Seg Neutrophils # Man Lymphocytes # (Manual) Monocytes # (Manual) PT INR APTT D-Dimer Heparin Anti-Xa Level ABG pH POC ABG pCO2 POC ABG pO2 ABG pO2 ABG HCO3 ABG O2 Saturation ABG Base Excess ABG Hemoglobin ABG Oxyhemoglobin ABG Sodium ABG Potassium ABG Glucose Oxyhemoglobin Sodium Potassium Chloride Carbon Dioxide BUN Creatinine Glucose POC Glucose 126 H 136 H 118 H Lactic Acid Calcium Phosphorus Magnesium Ferritin Lactate Dehydrogenase C-Reactive Protein NT-Pro-B Natriuret Pep Total Protein Albumin Triglycerides Arterial Blood Glucose Urine pH Ur Specific [place] Coronavirus (PCR) 03/24/21 03/24/21 03/25/21 21:03 23:49 04:32 WBC RBC Hgb Hct MCV MCHC RDW 16.1 H Plt Count 121 L Lymph % (Auto) [place] % (Auto) Lymph # (Auto) [place] # (Auto) Seg Neutrophils % Seg Neuts % (Manual) Lymphocytes % (Manual) Monocytes % (Manual) Nucleated RBC % Seg Neutrophils # Seg Neutrophils # Man Lymphocytes # (Manual) Monocytes # (Manual) PT INR APTT D-Dimer Heparin Anti-Xa Level ABG pH POC ABG pCO2 POC ABG pO2 ABG pO2 ABG HCO3 ABG O2 Saturation ABG Base Excess ABG Hemoglobin ABG Oxyhemoglobin ABG Sodium ABG Potassium ABG Glucose Oxyhemoglobin Sodium Potassium Chloride Carbon Dioxide BUN Creatinine Glucose POC Glucose 116 H 125 H Lactic Acid Calcium Phosphorus Magnesium Ferritin Lactate Dehydrogenase C-Reactive Protein NT-Pro-B Natriuret Pep Total Protein Albumin Triglycerides Arterial Blood Glucose Urine pH Ur Specific [place] Coronavirus (PCR) 03/25/21 03/25/21 03/25/21 04:32 05:21 09:29 WBC RBC Hgb Hct MCV MCHC RDW Plt Count Lymph % (Auto) [place] % (Auto) Lymph # (Auto) [place] # (Auto) Seg Neutrophils % Seg Neuts % (Manual) Lymphocytes % (Manual) Monocytes % (Manual) Nucleated RBC % Seg Neutrophils # Seg Neutrophils # Man Lymphocytes # (Manual) Monocytes # (Manual) PT INR APTT D-Dimer Heparin Anti-Xa Level ABG pH POC ABG pCO2 POC ABG pO2 ABG pO2 ABG HCO3 ABG O2 Saturation ABG Base Excess ABG Hemoglobin ABG Oxyhemoglobin ABG Sodium ABG Potassium ABG Glucose Oxyhemoglobin Sodium 135 L D Potassium Chloride Carbon Dioxide BUN 25 H Creatinine 0.7 L Glucose 168 H POC Glucose 149 H 115 H Lactic Acid Calcium Phosphorus Magnesium Ferritin Lactate Dehydrogenase C-Reactive Protein NT-Pro-B Natriuret Pep Total Protein Albumin Triglycerides Arterial Blood Glucose Urine pH Ur Specific [place] Coronavirus (PCR) 03/25/21 03/25/21 03/25/21 12:26 12:35 23:53 WBC RBC Hgb Hct MCV MCHC RDW Plt Count Lymph % (Auto) [place] % (Auto) Lymph # (Auto) [place] # (Auto) Seg Neutrophils % Seg Neuts % (Manual) Lymphocytes % (Manual) Monocytes % (Manual) Nucleated RBC % Seg Neutrophils # Seg Neutrophils # Man Lymphocytes # (Manual) Monocytes # (Manual) PT INR APTT D-Dimer Heparin Anti-Xa Level ABG pH POC ABG pCO2 POC ABG pO2 ABG pO2 100.5 H ABG HCO3 33.6 H ABG O2 Saturation ABG Base Excess 6.4 H ABG Hemoglobin 12.0 L ABG Oxyhemoglobin ABG Sodium ABG Potassium ABG Glucose Oxyhemoglobin Sodium Potassium Chloride Carbon Dioxide BUN Creatinine Glucose POC Glucose 108 H 137 H Lactic Acid Calcium Phosphorus Magnesium Ferritin Lactate Dehydrogenase C-Reactive Protein NT-Pro-B Natriuret Pep Total Protein Albumin Triglycerides Arterial Blood Glucose Urine pH Ur Specific [place] Coronavirus (PCR) 03/26/21 03/26/21 03/26/21 05:14 07:09 07:09 WBC RBC Hgb Hct MCV MCHC RDW 16.5 H Plt Count 139 L Lymph % (Auto) [place] % (Auto) Lymph # (Auto) [place] # (Auto) Seg Neutrophils % Seg Neuts % (Manual) Lymphocytes % (Manual) Monocytes % (Manual) Nucleated RBC % Seg Neutrophils # Seg Neutrophils # Man Lymphocytes # (Manual) Monocytes # (Manual) PT INR APTT D-Dimer Heparin Anti-Xa Level ABG pH POC ABG pCO2 POC ABG pO2 ABG pO2 ABG HCO3 ABG O2 Saturation ABG Base Excess ABG Hemoglobin ABG Oxyhemoglobin ABG Sodium ABG Potassium ABG Glucose Oxyhemoglobin Sodium Potassium Chloride Carbon Dioxide BUN 22 H Creatinine 0.7 L Glucose 108 H POC Glucose 116 H Lactic Acid Calcium Phosphorus Magnesium Ferritin Lactate Dehydrogenase C-Reactive Protein NT-Pro-B Natriuret Pep Total Protein Albumin Triglycerides Arterial Blood Glucose Urine pH Ur Specific [place] Coronavirus (PCR) 03/26/21 03/26/21 03/26/21 09:51 11:15 16:59 WBC RBC Hgb Hct MCV MCHC RDW Plt Count Lymph % (Auto) [place] % (Auto) Lymph # (Auto) [place] # (Auto) Seg Neutrophils % Seg Neuts % (Manual) Lymphocytes % (Manual) Monocytes % (Manual) Nucleated RBC % Seg Neutrophils # Seg Neutrophils # Man Lymphocytes # (Manual) Monocytes # (Manual) PT INR APTT D-Dimer Heparin Anti-Xa Level ABG pH POC ABG pCO2 POC ABG pO2 ABG pO2 ABG HCO3 ABG O2 Saturation ABG Base Excess ABG Hemoglobin ABG Oxyhemoglobin ABG Sodium ABG Potassium ABG Glucose Oxyhemoglobin Sodium Potassium Chloride Carbon Dioxide BUN Creatinine Glucose POC Glucose 107 H 119 H 174 H Lactic Acid Calcium Phosphorus Magnesium Ferritin Lactate Dehydrogenase C-Reactive Protein NT-Pro-B Natriuret Pep Total Protein Albumin Triglycerides Arterial Blood Glucose Urine pH Ur Specific [place] Coronavirus (PCR) 03/26/21 03/27/21 03/27/21 22:18 07:08 10:28 WBC RBC Hgb Hct MCV 95 H MCHC RDW 16.2 H Plt Count 134 L Lymph % (Auto) [place] % (Auto) Lymph # (Auto) [place] # (Auto) Seg Neutrophils % Seg Neuts % (Manual) Lymphocytes % (Manual) Monocytes % (Manual) Nucleated RBC % Seg Neutrophils # Seg Neutrophils # Man Lymphocytes # (Manual) Monocytes # (Manual) PT INR APTT D-Dimer Heparin Anti-Xa Level ABG pH POC ABG pCO2 POC ABG pO2 ABG pO2 ABG HCO3 ABG O2 Saturation ABG Base Excess ABG Hemoglobin ABG Oxyhemoglobin ABG Sodium ABG Potassium ABG Glucose Oxyhemoglobin Sodium Potassium Chloride Carbon Dioxide BUN Creatinine Glucose POC Glucose 107 H 52 L Lactic Acid Calcium Phosphorus Magnesium Ferritin Lactate Dehydrogenase C-Reactive Protein NT-Pro-B Natriuret Pep Total Protein Albumin Triglycerides Arterial Blood Glucose Urine pH Ur Specific [place] Coronavirus (PCR) 03/27/21 03/27/21 03/27/21 10:28 11:45 17:39 WBC RBC Hgb Hct MCV MCHC RDW Plt Count Lymph % (Auto) [place] % (Auto) Lymph # (Auto) [place] # (Auto) Seg Neutrophils % Seg Neuts % (Manual) Lymphocytes % (Manual) Monocytes % (Manual) Nucleated RBC % Seg Neutrophils # Seg Neutrophils # Man Lymphocytes # (Manual) Monocytes # (Manual) PT INR APTT D-Dimer Heparin Anti-Xa Level ABG pH POC ABG pCO2 POC ABG pO2 ABG pO2 ABG HCO3 ABG O2 Saturation ABG Base Excess ABG Hemoglobin ABG Oxyhemoglobin ABG Sodium ABG Potassium ABG Glucose Oxyhemoglobin Sodium 136 L Potassium Chloride Carbon Dioxide BUN Creatinine 0.7 L Glucose 150 H POC Glucose 121 H 165 H Lactic Acid Calcium Phosphorus Magnesium Ferritin Lactate Dehydrogenase C-Reactive Protein NT-Pro-B Natriuret Pep Total Protein Albumin Triglycerides Arterial Blood Glucose Urine pH Ur Specific [place] Coronavirus (PCR) 03/28/21 03/28/21 03/28/21 07:14 11:42 18:22 WBC RBC Hgb Hct MCV MCHC RDW 16.4 H Plt Count Lymph % (Auto) [place] % (Auto) Lymph # (Auto) [place] # (Auto) Seg Neutrophils % Seg Neuts % (Manual) Lymphocytes % (Manual) Monocytes % (Manual) Nucleated RBC % Seg Neutrophils # Seg Neutrophils # Man Lymphocytes # (Manual) Monocytes # (Manual) PT INR APTT D-Dimer Heparin Anti-Xa Level ABG pH POC ABG pCO2 POC ABG pO2 ABG pO2 ABG HCO3 ABG O2 Saturation ABG Base Excess ABG Hemoglobin ABG Oxyhemoglobin ABG Sodium ABG Potassium ABG Glucose Oxyhemoglobin Sodium Potassium Chloride Carbon Dioxide BUN Creatinine Glucose POC Glucose 145 H 169 H Lactic Acid Calcium Phosphorus Magnesium Ferritin Lactate Dehydrogenase C-Reactive Protein NT-Pro-B Natriuret Pep Total Protein Albumin Triglycerides Arterial Blood Glucose Urine pH Ur Specific [place] Coronavirus (PCR) 03/28/21 03/29/21 03/29/21 23:39 04:50 04:50 WBC RBC Hgb 11.0 L Hct 34.9 L MCV MCHC RDW 15.9 H Plt Count Lymph % (Auto) [place] % (Auto) Lymph # (Auto) [place] # (Auto) Seg Neutrophils % Seg Neuts % (Manual) Lymphocytes % (Manual) Monocytes % (Manual) Nucleated RBC % Seg Neutrophils # Seg Neutrophils # Man Lymphocytes # (Manual) Monocytes # (Manual) PT INR APTT D-Dimer Heparin Anti-Xa Level ABG pH POC ABG pCO2 POC ABG pO2 ABG pO2 ABG HCO3 ABG O2 Saturation ABG Base Excess ABG Hemoglobin ABG Oxyhemoglobin ABG Sodium ABG Potassium ABG Glucose Oxyhemoglobin Sodium Potassium Chloride Carbon Dioxide 34 H BUN Creatinine 0.6 L Glucose 152 H POC Glucose 139 H Lactic Acid Calcium Phosphorus Magnesium Ferritin Lactate Dehydrogenase C-Reactive Protein NT-Pro-B Natriuret Pep Total Protein Albumin Triglycerides Arterial Blood Glucose Urine pH Ur Specific [place] Coronavirus (PCR) 03/29/21 03/29/21 03/29/21 05:25 11:34 18:02 WBC RBC Hgb Hct MCV MCHC RDW Plt Count Lymph % (Auto) [place] % (Auto) Lymph # (Auto) [place] # (Auto) Seg Neutrophils % Seg Neuts % (Manual) Lymphocytes % (Manual) Monocytes % (Manual) Nucleated RBC % Seg Neutrophils # Seg Neutrophils # Man Lymphocytes # (Manual) Monocytes # (Manual) PT INR APTT D-Dimer Heparin Anti-Xa Level ABG pH POC ABG pCO2 POC ABG pO2 ABG pO2 ABG HCO3 ABG O2 Saturation ABG Base Excess ABG Hemoglobin ABG Oxyhemoglobin ABG Sodium ABG Potassium ABG Glucose Oxyhemoglobin Sodium Potassium Chloride Carbon Dioxide BUN Creatinine Glucose POC Glucose 127 H 169 H 173 H Lactic Acid Calcium Phosphorus Magnesium Ferritin Lactate Dehydrogenase C-Reactive Protein NT-Pro-B Natriuret Pep Total Protein Albumin Triglycerides Arterial Blood Glucose Urine pH Ur Specific [place] Coronavirus (PCR) 03/29/21 03/30/21 03/30/21 21:42 00:01 05:36 WBC RBC Hgb Hct MCV MCHC RDW 16.7 H Plt Count Lymph % (Auto) [place] % (Auto) Lymph # (Auto) [place] # (Auto) Seg Neutrophils % Seg Neuts % (Manual) Lymphocytes % (Manual) Monocytes % (Manual) Nucleated RBC % Seg Neutrophils # Seg Neutrophils # Man Lymphocytes # (Manual) Monocytes # (Manual) PT INR APTT D-Dimer Heparin Anti-Xa Level ABG pH POC ABG pCO2 POC ABG pO2 ABG pO2 ABG HCO3 ABG O2 Saturation ABG Base Excess ABG Hemoglobin ABG Oxyhemoglobin ABG Sodium ABG Potassium ABG Glucose Oxyhemoglobin Sodium Potassium Chloride Carbon Dioxide BUN Creatinine Glucose POC Glucose 184 H 161 H Lactic Acid Calcium Phosphorus Magnesium Ferritin Lactate Dehydrogenase C-Reactive Protein NT-Pro-B Natriuret Pep Total Protein Albumin Triglycerides Arterial Blood Glucose Urine pH Ur Specific [place] Coronavirus (PCR) 03/30/21 03/30/21 03/30/21 05:36 06:03 11:32 WBC RBC Hgb Hct MCV MCHC RDW Plt Count Lymph % (Auto) [place] % (Auto) Lymph # (Auto) [place] # (Auto) Seg Neutrophils % Seg Neuts % (Manual) Lymphocytes % (Manual) Monocytes % (Manual) Nucleated RBC % Seg Neutrophils # Seg Neutrophils # Man Lymphocytes # (Manual) Monocytes # (Manual) PT INR APTT D-Dimer Heparin Anti-Xa Level ABG pH POC ABG pCO2 POC ABG pO2 ABG pO2 ABG HCO3 ABG O2 Saturation ABG Base Excess ABG Hemoglobin ABG Oxyhemoglobin ABG Sodium ABG Potassium ABG Glucose Oxyhemoglobin Sodium Potassium Chloride Carbon Dioxide BUN Creatinine 0.5 L Glucose 127 H POC Glucose 130 H 183 H Lactic Acid Calcium Phosphorus Magnesium Ferritin Lactate Dehydrogenase C-Reactive Protein NT-Pro-B Natriuret Pep Total Protein Albumin Triglycerides Arterial Blood Glucose Urine pH Ur Specific [place] Coronavirus (PCR) 03/30/21 03/30/21 03/30/21 15:00 16:23 21:07 WBC RBC Hgb Hct MCV MCHC RDW Plt Count Lymph % (Auto) [place] % (Auto) Lymph # (Auto) [place] # (Auto) Seg Neutrophils % Seg Neuts % (Manual) Lymphocytes % (Manual) Monocytes % (Manual) Nucleated RBC % Seg Neutrophils # Seg Neutrophils # Man Lymphocytes # (Manual) Monocytes # (Manual) PT INR APTT D-Dimer Heparin Anti-Xa Level ABG pH POC ABG pCO2 POC ABG pO2 ABG pO2 67.2 L ABG HCO3 34.9 H ABG O2 Saturation ABG Base Excess 9.1 H ABG Hemoglobin 11.6 L ABG Oxyhemoglobin ABG Sodium ABG Potassium ABG Glucose Oxyhemoglobin 93.0 L Sodium Potassium Chloride Carbon Dioxide BUN Creatinine Glucose POC Glucose 162 H 146 H Lactic Acid Calcium Phosphorus Magnesium Ferritin Lactate Dehydrogenase C-Reactive Protein NT-Pro-B Natriuret Pep Total Protein Albumin Triglycerides Arterial Blood Glucose Urine pH Ur Specific [place] Coronavirus (PCR) 03/30/21 03/31/21 03/31/21 23:23 05:44 11:19 WBC RBC Hgb Hct MCV MCHC RDW Plt Count Lymph % (Auto) [place] % (Auto) Lymph # (Auto) [place] # (Auto) Seg Neutrophils % Seg Neuts % (Manual) Lymphocytes % (Manual) Monocytes % (Manual) Nucleated RBC % Seg Neutrophils # Seg Neutrophils # Man Lymphocytes # (Manual) Monocytes # (Manual) PT INR APTT D-Dimer Heparin Anti-Xa Level ABG pH POC ABG pCO2 POC ABG pO2 ABG pO2 ABG HCO3 ABG O2 Saturation ABG Base Excess ABG Hemoglobin ABG Oxyhemoglobin ABG Sodium ABG Potassium ABG Glucose Oxyhemoglobin Sodium Potassium Chloride Carbon Dioxide BUN Creatinine Glucose POC Glucose 138 H 180 H 178 H Lactic Acid Calcium Phosphorus Magnesium Ferritin Lactate Dehydrogenase C-Reactive Protein NT-Pro-B Natriuret Pep Total Protein Albumin Triglycerides Arterial Blood Glucose Urine pH Ur Specific [place] Coronavirus (PCR) 03/31/21 03/31/21 03/31/21 12:50 13:30 16:06 WBC RBC Hgb 11.3 L Hct 35.1 L MCV MCHC RDW 16.5 H Plt Count Lymph % (Auto) 7.6 L [place] % (Auto) 9.5 H Lymph # (Auto) 0.6 L [place] # (Auto) Seg Neutrophils % 78.3 H Seg Neuts % (Manual) Lymphocytes % (Manual) Monocytes % (Manual) Nucleated RBC % Seg Neutrophils # Seg Neutrophils # Man Lymphocytes # (Manual) Monocytes # (Manual) PT INR APTT D-Dimer Heparin Anti-Xa Level ABG pH POC ABG pCO2 POC ABG pO2 ABG pO2 99.4 H ABG HCO3 34.9 H ABG O2 Saturation ABG Base Excess 8.4 H ABG Hemoglobin 11.8 L ABG Oxyhemoglobin ABG Sodium ABG Potassium ABG Glucose Oxyhemoglobin Sodium Potassium Chloride Carbon Dioxide BUN Creatinine Glucose POC Glucose 197 H Lactic Acid Calcium Phosphorus Magnesium Ferritin Lactate Dehydrogenase C-Reactive Protein NT-Pro-B Natriuret Pep Total Protein Albumin Triglycerides Arterial Blood Glucose Urine pH Ur Specific [place] Coronavirus (PCR) 03/31/21 04/01/21 04/01/21 20:51 05:37 07:16 WBC RBC 3.39 L Hgb 10.5 L Hct 31.6 L MCV MCHC RDW 16.1 H Plt Count Lymph % (Auto) [place] % (Auto) Lymph # (Auto) [place] # (Auto) Seg Neutrophils % Seg Neuts % (Manual) Lymphocytes % (Manual) Monocytes % (Manual) Nucleated RBC % Seg Neutrophils # Seg Neutrophils # Man Lymphocytes # (Manual) Monocytes # (Manual) PT INR APTT D-Dimer Heparin Anti-Xa Level ABG pH POC ABG pCO2 POC ABG pO2 ABG pO2 ABG HCO3 ABG O2 Saturation ABG Base Excess ABG Hemoglobin ABG Oxyhemoglobin ABG Sodium ABG Potassium ABG Glucose Oxyhemoglobin Sodium Potassium Chloride Carbon Dioxide BUN Creatinine Glucose POC Glucose 140 H 128 H Lactic Acid Calcium Phosphorus Magnesium Ferritin Lactate Dehydrogenase C-Reactive Protein NT-Pro-B Natriuret Pep Total Protein Albumin Triglycerides Arterial Blood Glucose Urine pH Ur Specific [place] Coronavirus (PCR) 04/01/21 04/01/21 04/01/21 07:16 11:52 16:56 WBC RBC Hgb Hct MCV MCHC RDW Plt Count Lymph % (Auto) [place] % (Auto) Lymph # (Auto) [place] # (Auto) Seg Neutrophils % Seg Neuts % (Manual) Lymphocytes % (Manual) Monocytes % (Manual) Nucleated RBC % Seg Neutrophils # Seg Neutrophils # Man Lymphocytes # (Manual) Monocytes # (Manual) PT INR APTT D-Dimer Heparin Anti-Xa Level ABG pH POC ABG pCO2 POC ABG pO2 ABG pO2 ABG HCO3 ABG O2 Saturation ABG Base Excess ABG Hemoglobin ABG Oxyhemoglobin ABG Sodium ABG Potassium ABG Glucose Oxyhemoglobin Sodium Potassium Chloride Carbon Dioxide BUN Creatinine 0.6 L Glucose 131 H POC Glucose 182 H 179 H Lactic Acid Calcium 8.3 L Phosphorus Magnesium Ferritin Lactate Dehydrogenase C-Reactive Protein NT-Pro-B Natriuret Pep Total Protein Albumin Triglycerides Arterial Blood Glucose Urine pH Ur Specific [place] Coronavirus (PCR) 04/01/21 04/01/21 04/02/21 21:30 23:40 04:26 WBC RBC 3.62 L Hgb 10.8 L Hct 33.9 L MCV MCHC RDW 16.0 H Plt Count Lymph % (Auto) [place] % (Auto) Lymph # (Auto) [place] # (Auto) Seg Neutrophils % Seg Neuts % (Manual) Lymphocytes % (Manual) Monocytes % (Manual) Nucleated RBC % Seg Neutrophils # Seg Neutrophils # Man Lymphocytes # (Manual) Monocytes # (Manual) PT INR APTT D-Dimer Heparin Anti-Xa Level ABG pH POC ABG pCO2 POC ABG pO2 ABG pO2 ABG HCO3 ABG O2 Saturation ABG Base Excess ABG Hemoglobin ABG Oxyhemoglobin ABG Sodium ABG Potassium ABG Glucose Oxyhemoglobin Sodium Potassium Chloride Carbon Dioxide BUN Creatinine Glucose POC Glucose 131 H 129 H Lactic Acid Calcium Phosphorus Magnesium Ferritin Lactate Dehydrogenase C-Reactive Protein NT-Pro-B Natriuret Pep Total Protein Albumin Triglycerides Arterial Blood Glucose Urine pH Ur Specific [place] Coronavirus (PCR) 04/02/21 04/02/21 04/02/21 04:26 05:54 11:35 WBC RBC Hgb Hct MCV MCHC RDW Plt Count Lymph % (Auto) [place] % (Auto) Lymph # (Auto) [place] # (Auto) Seg Neutrophils % Seg Neuts % (Manual) Lymphocytes % (Manual) Monocytes % (Manual) Nucleated RBC % Seg Neutrophils # Seg Neutrophils # Man Lymphocytes # (Manual) Monocytes # (Manual) PT INR APTT D-Dimer Heparin Anti-Xa Level ABG pH POC ABG pCO2 POC ABG pO2 ABG pO2 ABG HCO3 ABG O2 Saturation ABG Base Excess ABG Hemoglobin ABG Oxyhemoglobin ABG Sodium ABG Potassium ABG Glucose Oxyhemoglobin Sodium 136 L Potassium Chloride Carbon Dioxide BUN Creatinine 0.6 L Glucose 152 H POC Glucose 151 H 178 H Lactic Acid Calcium Phosphorus Magnesium Ferritin Lactate Dehydrogenase C-Reactive Protein NT-Pro-B Natriuret Pep Total Protein Albumin Triglycerides Arterial Blood Glucose Urine pH Ur Specific [place] Coronavirus (PCR) 04/02/21 04/02/21 04/02/21 16:11 21:09 23:38 WBC RBC Hgb Hct MCV MCHC RDW Plt Count Lymph % (Auto) [place] % (Auto) Lymph # (Auto) [place] # (Auto) Seg Neutrophils % Seg Neuts % (Manual) Lymphocytes % (Manual) Monocytes % (Manual) Nucleated RBC % Seg Neutrophils # Seg Neutrophils # Man Lymphocytes # (Manual) Monocytes # (Manual) PT INR APTT D-Dimer Heparin Anti-Xa Level ABG pH POC ABG pCO2 POC ABG pO2 ABG pO2 ABG HCO3 ABG O2 Saturation ABG Base Excess ABG Hemoglobin ABG Oxyhemoglobin ABG Sodium ABG Potassium ABG Glucose Oxyhemoglobin Sodium Potassium Chloride Carbon Dioxide BUN Creatinine Glucose POC Glucose 186 H 145 H 152 H Lactic Acid Calcium Phosphorus Magnesium Ferritin Lactate Dehydrogenase C-Reactive Protein NT-Pro-B Natriuret Pep Total Protein Albumin Triglycerides Arterial Blood Glucose Urine pH Ur Specific [place] Coronavirus (PCR) 04/03/21 04/03/21 04/03/21 04:14 04:14 05:27 WBC RBC 3.62 L Hgb 11.0 L Hct 34.0 L MCV MCHC RDW 16.3 H Plt Count Lymph % (Auto) [place] % (Auto) Lymph # (Auto) [place] # (Auto) Seg Neutrophils % Seg Neuts % (Manual) Lymphocytes % (Manual) Monocytes % (Manual) Nucleated RBC % Seg Neutrophils # Seg Neutrophils # Man Lymphocytes # (Manual) Monocytes # (Manual) PT INR APTT D-Dimer Heparin Anti-Xa Level ABG pH POC ABG pCO2 POC ABG pO2 ABG pO2 ABG HCO3 ABG O2 Saturation ABG Base Excess ABG Hemoglobin ABG Oxyhemoglobin ABG Sodium ABG Potassium ABG Glucose Oxyhemoglobin Sodium Potassium Chloride Carbon Dioxide 31 H BUN Creatinine 0.6 L Glucose 155 H POC Glucose 165 H Lactic Acid Calcium Phosphorus Magnesium Ferritin Lactate Dehydrogenase C-Reactive Protein NT-Pro-B Natriuret Pep Total Protein Albumin Triglycerides Arterial Blood Glucose Urine pH Ur Specific [place] Coronavirus (PCR) 04/03/21 04/03/21 04/03/21 11:02 16:19 19:45 WBC RBC Hgb Hct MCV MCHC RDW Plt Count Lymph % (Auto) [place] % (Auto) Lymph # (Auto) [place] # (Auto) Seg Neutrophils % Seg Neuts % (Manual) Lymphocytes % (Manual) Monocytes % (Manual) Nucleated RBC % Seg Neutrophils # Seg Neutrophils # Man Lymphocytes # (Manual) Monocytes # (Manual) PT INR APTT D-Dimer Heparin Anti-Xa Level ABG pH POC ABG pCO2 POC ABG pO2 ABG pO2 ABG HCO3 ABG O2 Saturation ABG Base Excess ABG Hemoglobin ABG Oxyhemoglobin ABG Sodium ABG Potassium ABG Glucose Oxyhemoglobin Sodium Potassium Chloride Carbon Dioxide BUN Creatinine Glucose POC Glucose 161 H 180 H 136 H Lactic Acid Calcium Phosphorus Magnesium Ferritin Lactate Dehydrogenase C-Reactive Protein NT-Pro-B Natriuret Pep Total Protein Albumin Triglycerides Arterial Blood Glucose Urine pH Ur Specific [place] Coronavirus (PCR) 0204/04/21 04/04/21 00:21 04:33 04:33 WBC 13.1 H RBC 3.49 L Hgb 10.3 L Hct 32.7 L MCV MCHC RDW 16.1 H Plt Count Lymph % (Auto) [place] % (Auto) Lymph # (Auto) [place] # (Auto) Seg Neutrophils % Seg Neuts % (Manual) Lymphocytes % (Manual) Monocytes % (Manual) Nucleated RBC % Seg Neutrophils # Seg Neutrophils # Man Lymphocytes # (Manual) Monocytes # (Manual) PT INR APTT D-Dimer Heparin Anti-Xa Level ABG pH POC ABG pCO2 POC ABG pO2 ABG pO2 ABG HCO3 ABG O2 Saturation ABG Base Excess ABG Hemoglobin ABG Oxyhemoglobin ABG Sodium ABG Potassium ABG Glucose Oxyhemoglobin Sodium Potassium Chloride Carbon Dioxide 31 H BUN Creatinine 0.4 L Glucose 153 H POC Glucose 140 H Lactic Acid Calcium Phosphorus Magnesium Ferritin Lactate Dehydrogenase C-Reactive Protein NT-Pro-B Natriuret Pep Total Protein Albumin Triglycerides Arterial Blood Glucose Urine pH Ur Specific [place] Coronavirus (PCR) 04/04/21 04/04/21 04/04/21 05:16 11:39 17:22 WBC RBC Hgb Hct MCV MCHC RDW Plt Count Lymph % (Auto) [place] % (Auto) Lymph # (Auto) [place] # (Auto) Seg Neutrophils % Seg Neuts % (Manual) Lymphocytes % (Manual) Monocytes % (Manual) Nucleated RBC % Seg Neutrophils # Seg Neutrophils # Man Lymphocytes # (Manual) Monocytes # (Manual) PT INR APTT D-Dimer Heparin Anti-Xa Level ABG pH POC ABG pCO2 POC ABG pO2 ABG pO2 ABG HCO3 ABG O2 Saturation ABG Base Excess ABG Hemoglobin ABG Oxyhemoglobin ABG Sodium ABG Potassium ABG Glucose Oxyhemoglobin Sodium Potassium Chloride Carbon Dioxide BUN Creatinine Glucose POC Glucose 152 H 154 H 198 H Lactic Acid Calcium Phosphorus Magnesium Ferritin Lactate Dehydrogenase C-Reactive Protein NT-Pro-B Natriuret Pep Total Protein Albumin Triglycerides Arterial Blood Glucose Urine pH Ur Specific [place] Coronavirus (PCR) 04/04/21 04/04/21 04/05/21 20:14 23:16 04:15 WBC RBC 3.21 L Hgb 10.0 L Hct 30.3 L MCV MCHC RDW 16.4 H Plt Count Lymph % (Auto) [place] % (Auto) Lymph # (Auto) [place] # (Auto) Seg Neutrophils % Seg Neuts % (Manual) Lymphocytes % (Manual) Monocytes % (Manual) Nucleated RBC % Seg Neutrophils # Seg Neutrophils # Man Lymphocytes # (Manual) Monocytes # (Manual) PT INR APTT D-Dimer Heparin Anti-Xa Level ABG pH POC ABG pCO2 POC ABG pO2 ABG pO2 ABG HCO3 ABG O2 Saturation ABG Base Excess ABG Hemoglobin ABG Oxyhemoglobin ABG Sodium ABG Potassium ABG Glucose Oxyhemoglobin Sodium Potassium Chloride Carbon Dioxide BUN Creatinine Glucose POC Glucose 161 H 139 H Lactic Acid Calcium Phosphorus Magnesium Ferritin Lactate Dehydrogenase C-Reactive Protein NT-Pro-B Natriuret Pep Total Protein Albumin Triglycerides Arterial Blood Glucose Urine pH Ur Specific [place] Coronavirus (PCR) 04/05/21 04/05/21 04/05/21 04:15 05:34 12:09 WBC RBC Hgb Hct MCV MCHC RDW Plt Count Lymph % (Auto) [place] % (Auto) Lymph # (Auto) [place] # (Auto) Seg Neutrophils % Seg Neuts % (Manual) Lymphocytes % (Manual) Monocytes % (Manual) Nucleated RBC % Seg Neutrophils # Seg Neutrophils # Man Lymphocytes # (Manual) Monocytes # (Manual) PT INR APTT D-Dimer Heparin Anti-Xa Level ABG pH POC ABG pCO2 POC ABG pO2 ABG pO2 ABG HCO3 ABG O2 Saturation ABG Base Excess ABG Hemoglobin ABG Oxyhemoglobin ABG Sodium ABG Potassium ABG Glucose Oxyhemoglobin Sodium Potassium Chloride 97.6 L Carbon Dioxide 32 H BUN Creatinine 0.5 L Glucose 147 H POC Glucose 145 H 173 H Lactic Acid Calcium Phosphorus Magnesium Ferritin Lactate Dehydrogenase C-Reactive Protein NT-Pro-B Natriuret Pep Total Protein Albumin Triglycerides Arterial Blood Glucose Urine pH Ur Specific [place] Coronavirus (PCR) 04/05/21 04/05/21 04/05/21 17:35 21:07 23:15 WBC RBC Hgb Hct MCV MCHC RDW Plt Count Lymph % (Auto) [place] % (Auto) Lymph # (Auto) [place] # (Auto) Seg Neutrophils % Seg Neuts % (Manual) Lymphocytes % (Manual) Monocytes % (Manual) Nucleated RBC % Seg Neutrophils # Seg Neutrophils # Man Lymphocytes # (Manual) Monocytes # (Manual) PT INR APTT D-Dimer Heparin Anti-Xa Level ABG pH POC ABG pCO2 POC ABG pO2 ABG pO2 ABG HCO3 ABG O2 Saturation ABG Base Excess ABG Hemoglobin ABG Oxyhemoglobin ABG Sodium ABG Potassium ABG Glucose Oxyhemoglobin Sodium Potassium Chloride Carbon Dioxide BUN Creatinine Glucose POC Glucose 143 H 157 H 171 H Lactic Acid Calcium Phosphorus Magnesium Ferritin Lactate Dehydrogenase C-Reactive Protein NT-Pro-B Natriuret Pep Total Protein Albumin Triglycerides Arterial Blood Glucose Urine pH Ur Specific [place] Coronavirus (PCR) 04/06/21 04/06/21 04/06/21 04:49 05:14 11:42 WBC RBC Hgb Hct MCV MCHC RDW Plt Count Lymph % (Auto) [place] % (Auto) Lymph # (Auto) [place] # (Auto) Seg Neutrophils % Seg Neuts % (Manual) Lymphocytes % (Manual) Monocytes % (Manual) Nucleated RBC % Seg Neutrophils # Seg Neutrophils # Man Lymphocytes # (Manual) Monocytes # (Manual) PT INR APTT D-Dimer Heparin Anti-Xa Level ABG pH POC ABG pCO2 57.4 H POC ABG pO2 55.1 L ABG pO2 ABG HCO3 ABG O2 Saturation ABG Base Excess ABG Hemoglobin 11.5 L ABG Oxyhemoglobin 87.5 L ABG Sodium ABG Potassium ABG Glucose Oxyhemoglobin Sodium Potassium Chloride Carbon Dioxide BUN Creatinine Glucose POC Glucose 145 H 171 H Lactic Acid Calcium Phosphorus Magnesium Ferritin Lactate Dehydrogenase C-Reactive Protein NT-Pro-B Natriuret Pep Total Protein Albumin Triglycerides Arterial Blood Glucose Urine pH Ur Specific [place] Coronavirus (PCR) 04/06/21 04/06/21 04/06/21 11:50 15:36 15:36 WBC RBC Hgb 10.4 L Hct 32.5 L MCV MCHC RDW Plt Count 444 H Lymph % (Auto) [place] % (Auto) Lymph # (Auto) [place] # (Auto) Seg Neutrophils % Seg Neuts % (Manual) Lymphocytes % (Manual) Monocytes % (Manual) Nucleated RBC % Seg Neutrophils # Seg Neutrophils # Man Lymphocytes # (Manual) Monocytes # (Manual) PT INR APTT 37.1 H D-Dimer Heparin Anti-Xa Level ABG pH 7.341 L POC ABG pCO2 POC ABG pO2 ABG pO2 108.9 H ABG HCO3 38.9 H ABG O2 Saturation ABG Base Excess 10.6 H ABG Hemoglobin 11.5 L ABG Oxyhemoglobin ABG Sodium ABG Potassium ABG Glucose Oxyhemoglobin Sodium Potassium Chloride Carbon Dioxide BUN Creatinine Glucose POC Glucose Lactic Acid Calcium Phosphorus Magnesium Ferritin Lactate Dehydrogenase C-Reactive Protein NT-Pro-B Natriuret Pep Total Protein Albumin Triglycerides Arterial Blood Glucose Urine pH Ur Specific [place] Coronavirus (PCR) 04/06/21 04/07/21 04/07/21 17:57 00:30 00:32 WBC RBC Hgb Hct MCV MCHC RDW Plt Count Lymph % (Auto) [place] % (Auto) Lymph # (Auto) [place] # (Auto) Seg Neutrophils % Seg Neuts % (Manual) Lymphocytes % (Manual) Monocytes % (Manual) Nucleated RBC % Seg Neutrophils # Seg Neutrophils # Man Lymphocytes # (Manual) Monocytes # (Manual) PT INR APTT D-Dimer Heparin Anti-Xa Level < 0.10 L ABG pH POC ABG pCO2 POC ABG pO2 ABG pO2 ABG HCO3 ABG O2 Saturation ABG Base Excess ABG Hemoglobin ABG Oxyhemoglobin ABG Sodium ABG Potassium ABG Glucose Oxyhemoglobin Sodium Potassium Chloride Carbon Dioxide BUN Creatinine Glucose POC Glucose 151 H 149 H Lactic Acid Calcium Phosphorus Magnesium Ferritin Lactate Dehydrogenase C-Reactive Protein NT-Pro-B Natriuret Pep Total Protein Albumin Triglycerides Arterial Blood Glucose Urine pH Ur Specific [place] Coronavirus (PCR) 04/07/21 04/07/21 04/07/21 05:34 06:08 06:08 WBC RBC 3.20 L Hgb 9.6 L Hct 29.8 L MCV MCHC RDW 16.0 H Plt Count 455 H Lymph % (Auto) [place] % (Auto) Lymph # (Auto) [place] # (Auto) Seg Neutrophils % Seg Neuts % (Manual) Lymphocytes % (Manual) Monocytes % (Manual) Nucleated RBC % Seg Neutrophils # Seg Neutrophils # Man Lymphocytes # (Manual) Monocytes # (Manual) PT INR APTT D-Dimer Heparin Anti-Xa Level ABG pH POC ABG pCO2 POC ABG pO2 ABG pO2 ABG HCO3 ABG O2 Saturation ABG Base Excess ABG Hemoglobin ABG Oxyhemoglobin ABG Sodium ABG Potassium ABG Glucose Oxyhemoglobin Sodium Potassium Chloride Carbon Dioxide 35 H BUN Creatinine 0.5 L Glucose 216 H POC Glucose 182 H Lactic Acid Calcium Phosphorus Magnesium Ferritin Lactate Dehydrogenase C-Reactive Protein NT-Pro-B Natriuret Pep Total Protein Albumin Triglycerides Arterial Blood Glucose Urine pH Ur Specific [place] Coronavirus (PCR) 04/07/21 04/07/21 04/07/21 07:55 11:57 17:12 WBC RBC Hgb Hct MCV MCHC RDW Plt Count Lymph % (Auto) [place] % (Auto) Lymph # (Auto) [place] # (Auto) Seg Neutrophils % Seg Neuts % (Manual) Lymphocytes % (Manual) Monocytes % (Manual) Nucleated RBC % Seg Neutrophils # Seg Neutrophils # Man Lymphocytes # (Manual) Monocytes # (Manual) PT INR APTT D-Dimer Heparin Anti-Xa Level < 0.10 L ABG pH POC ABG pCO2 POC ABG pO2 ABG pO2 ABG HCO3 ABG O2 Saturation ABG Base Excess ABG Hemoglobin ABG Oxyhemoglobin ABG Sodium ABG Potassium ABG Glucose Oxyhemoglobin Sodium Potassium Chloride Carbon Dioxide BUN Creatinine Glucose POC Glucose 182 H 165 H Lactic Acid Calcium Phosphorus Magnesium Ferritin Lactate Dehydrogenase C-Reactive Protein NT-Pro-B Natriuret Pep Total Protein Albumin Triglycerides Arterial Blood Glucose Urine pH Ur Specific [place] Coronavirus (PCR) 04/07/21 04/08/21 04/08/21 19:55 00:16 03:57 WBC RBC Hgb Hct MCV MCHC RDW Plt Count Lymph % (Auto) [place] % (Auto) Lymph # (Auto) [place] # (Auto) Seg Neutrophils % Seg Neuts % (Manual) Lymphocytes % (Manual) Monocytes % (Manual) Nucleated RBC % Seg Neutrophils # Seg Neutrophils # Man Lymphocytes # (Manual) Monocytes # (Manual) PT INR APTT D-Dimer Heparin Anti-Xa Level < 0.10 L ABG pH POC ABG pCO2 POC ABG pO2 ABG pO2 ABG HCO3 ABG O2 Saturation ABG Base Excess ABG Hemoglobin ABG Oxyhemoglobin ABG Sodium ABG Potassium ABG Glucose Oxyhemoglobin Sodium Potassium 5.8 H Chloride 95.5 L Carbon Dioxide 37 H BUN Creatinine 0.5 L Glucose 161 H POC Glucose 175 H Lactic Acid Calcium Phosphorus Magnesium Ferritin Lactate Dehydrogenase C-Reactive Protein NT-Pro-B Natriuret Pep Total Protein Albumin Triglycerides Arterial Blood Glucose Urine pH Ur Specific [place] Coronavirus (PCR) 04/08/21 04/08/21 04/08/21 04:00 05:43 09:26 WBC RBC 3.25 L Hgb 9.9 L Hct 30.8 L MCV 95 H MCHC RDW 16.0 H Plt Count 487 H Lymph % (Auto) [place] % (Auto) Lymph # (Auto) [place] # (Auto) Seg Neutrophils % Seg Neuts % (Manual) Lymphocytes % (Manual) Monocytes % (Manual) Nucleated RBC % Seg Neutrophils # Seg Neutrophils # Man Lymphocytes # (Manual) Monocytes # (Manual) PT INR APTT D-Dimer Heparin Anti-Xa Level ABG pH POC ABG pCO2 POC ABG pO2 ABG pO2 ABG HCO3 ABG O2 Saturation ABG Base Excess ABG Hemoglobin ABG Oxyhemoglobin ABG Sodium ABG Potassium ABG Glucose Oxyhemoglobin Sodium Potassium Chloride Carbon Dioxide BUN Creatinine Glucose POC Glucose 162 H 164 H Lactic Acid Calcium Phosphorus Magnesium Ferritin Lactate Dehydrogenase C-Reactive Protein NT-Pro-B Natriuret Pep Total Protein Albumin Triglycerides Arterial Blood Glucose Urine pH Ur Specific [place] Coronavirus (PCR) 04/08/21 04/08/21 04/08/21 11:53 17:19 20:35 WBC RBC Hgb Hct MCV MCHC RDW Plt Count Lymph % (Auto) [place] % (Auto) Lymph # (Auto) [place] # (Auto) Seg Neutrophils % Seg Neuts % (Manual) Lymphocytes % (Manual) Monocytes % (Manual) Nucleated RBC % Seg Neutrophils # Seg Neutrophils # Man Lymphocytes # (Manual) Monocytes # (Manual) PT INR APTT D-Dimer Heparin Anti-Xa Level ABG pH POC ABG pCO2 POC ABG pO2 ABG pO2 ABG HCO3 ABG O2 Saturation ABG Base Excess ABG Hemoglobin ABG Oxyhemoglobin ABG Sodium ABG Potassium ABG Glucose Oxyhemoglobin Sodium Potassium Chloride Carbon Dioxide BUN Creatinine Glucose POC Glucose 170 H 157 H 190 H Lactic Acid Calcium Phosphorus Magnesium Ferritin Lactate Dehydrogenase C-Reactive Protein NT-Pro-B Natriuret Pep Total Protein Albumin Triglycerides Arterial Blood Glucose Urine pH Ur Specific [place] Coronavirus (PCR) 04/08/21 04/09/21 04/09/21 23:52 04:21 04:21 WBC 11.4 H RBC 2.97 L Hgb 8.9 L Hct 27.8 L MCV MCHC RDW 15.8 H Plt Count 485 H Lymph % (Auto) [place] % (Auto) Lymph # (Auto) [place] # (Auto) Seg Neutrophils % Seg Neuts % (Manual) Lymphocytes % (Manual) Monocytes % (Manual) Nucleated RBC % Seg Neutrophils # Seg Neutrophils # Man Lymphocytes # (Manual) Monocytes # (Manual) PT INR APTT D-Dimer Heparin Anti-Xa Level ABG pH POC ABG pCO2 POC ABG pO2 ABG pO2 ABG HCO3 ABG O2 Saturation ABG Base Excess ABG Hemoglobin ABG Oxyhemoglobin ABG Sodium ABG Potassium ABG Glucose Oxyhemoglobin Sodium Potassium Chloride 97.1 L Carbon Dioxide 40 H BUN 21 H Creatinine 0.5 L Glucose 149 H POC Glucose 170 H Lactic Acid Calcium Phosphorus 1.90 L D Magnesium Ferritin Lactate Dehydrogenase C-Reactive Protein NT-Pro-B Natriuret Pep Total Protein Albumin Triglycerides Arterial Blood Glucose Urine pH Ur Specific [place] Coronavirus (PCR) 04/09/21 04/09/21 04/09/21 05:27 11:55 17:11 WBC RBC Hgb Hct MCV MCHC RDW Plt Count Lymph % (Auto) [place] % (Auto) Lymph # (Auto) [place] # (Auto) Seg Neutrophils % Seg Neuts % (Manual) Lymphocytes % (Manual) Monocytes % (Manual) Nucleated RBC % Seg Neutrophils # Seg Neutrophils # Man Lymphocytes # (Manual) Monocytes # (Manual) PT INR APTT D-Dimer Heparin Anti-Xa Level ABG pH POC ABG pCO2 POC ABG pO2 ABG pO2 ABG HCO3 ABG O2 Saturation ABG Base Excess ABG Hemoglobin ABG Oxyhemoglobin ABG Sodium ABG Potassium ABG Glucose Oxyhemoglobin Sodium Potassium Chloride Carbon Dioxide BUN Creatinine Glucose POC Glucose 144 H 190 H 163 H Lactic Acid Calcium Phosphorus Magnesium Ferritin Lactate Dehydrogenase C-Reactive Protein NT-Pro-B Natriuret Pep Total Protein Albumin Triglycerides Arterial Blood Glucose Urine pH Ur Specific [place] Coronavirus (PCR) 04/09/21 04/09/21 04/09/21 20:10 21:12 23:33 WBC RBC Hgb Hct MCV MCHC RDW Plt Count Lymph % (Auto) [place] % (Auto) Lymph # (Auto) [place] # (Auto) Seg Neutrophils % Seg Neuts % (Manual) Lymphocytes % (Manual) Monocytes % (Manual) Nucleated RBC % Seg Neutrophils # Seg Neutrophils # Man Lymphocytes # (Manual) Monocytes # (Manual) PT INR APTT D-Dimer Heparin Anti-Xa Level ABG pH POC ABG pCO2 POC ABG pO2 ABG pO2 68.1 L ABG HCO3 41.3 H ABG O2 Saturation ABG Base Excess 14.6 H ABG Hemoglobin 10.2 L ABG Oxyhemoglobin ABG Sodium ABG Potassium ABG Glucose Oxyhemoglobin 94.7 L Sodium Potassium Chloride Carbon Dioxide BUN Creatinine Glucose POC Glucose 163 H 164 H Lactic Acid Calcium Phosphorus Magnesium Ferritin Lactate Dehydrogenase C-Reactive Protein NT-Pro-B Natriuret Pep Total Protein Albumin Triglycerides Arterial Blood Glucose Urine pH Ur Specific [place] Coronavirus (PCR) 04/10/21 04/10/21 04/10/21 05:26 11:41 13:00 WBC RBC 3.09 L Hgb 9.3 L Hct 28.3 L MCV MCHC RDW 15.8 H Plt Count 480 H Lymph % (Auto) [place] % (Auto) Lymph # (Auto) [place] # (Auto) Seg Neutrophils % Seg Neuts % (Manual) Lymphocytes % (Manual) Monocytes % (Manual) Nucleated RBC % Seg Neutrophils # Seg Neutrophils # Man Lymphocytes # (Manual) Monocytes # (Manual) PT INR APTT D-Dimer Heparin Anti-Xa Level ABG pH POC ABG pCO2 POC ABG pO2 ABG pO2 ABG HCO3 ABG O2 Saturation ABG Base Excess ABG Hemoglobin ABG Oxyhemoglobin ABG Sodium ABG Potassium ABG Glucose Oxyhemoglobin Sodium Potassium Chloride Carbon Dioxide BUN Creatinine Glucose POC Glucose 172 H 150 H Lactic Acid Calcium Phosphorus Magnesium Ferritin Lactate Dehydrogenase C-Reactive Protein NT-Pro-B Natriuret Pep Total Protein Albumin Triglycerides Arterial Blood Glucose Urine pH Ur Specific [place] Coronavirus (PCR) 04/10/21 04/10/21 04/10/21 13:00 17:46 21:37 WBC RBC Hgb Hct MCV MCHC RDW Plt Count Lymph % (Auto) [place] % (Auto) Lymph # (Auto) [place] # (Auto) Seg Neutrophils % Seg Neuts % (Manual) Lymphocytes % (Manual) Monocytes % (Manual) Nucleated RBC % Seg Neutrophils # Seg Neutrophils # Man Lymphocytes # (Manual) Monocytes # (Manual) PT INR APTT D-Dimer Heparin Anti-Xa Level ABG pH POC ABG pCO2 POC ABG pO2 ABG pO2 ABG HCO3 ABG O2 Saturation ABG Base Excess ABG Hemoglobin ABG Oxyhemoglobin ABG Sodium ABG Potassium ABG Glucose Oxyhemoglobin Sodium Potassium Chloride 96.4 L Carbon Dioxide 34 H BUN Creatinine 0.5 L Glucose 165 H POC Glucose 165 H 166 H Lactic Acid Calcium Phosphorus Magnesium Ferritin Lactate Dehydrogenase C-Reactive Protein NT-Pro-B Natriuret Pep Total Protein Albumin Triglycerides Arterial Blood Glucose Urine pH Ur Specific [place] Coronavirus (PCR) 04/10/21 04/11/21 04/11/21 23:56 04:30 05:39 WBC 11.5 H RBC 3.02 L Hgb 8.9 L Hct 27.8 L MCV MCHC RDW 16.0 H Plt Count 505 H Lymph % (Auto) [place] % (Auto) Lymph # (Auto) [place] # (Auto) Seg Neutrophils % Seg Neuts % (Manual) Lymphocytes % (Manual) Monocytes % (Manual) Nucleated RBC % Seg Neutrophils # Seg Neutrophils # Man Lymphocytes # (Manual) Monocytes # (Manual) PT INR APTT D-Dimer Heparin Anti-Xa Level ABG pH POC ABG pCO2 POC ABG pO2 ABG pO2 ABG HCO3 ABG O2 Saturation ABG Base Excess ABG Hemoglobin ABG Oxyhemoglobin ABG Sodium ABG Potassium ABG Glucose Oxyhemoglobin Sodium Potassium Chloride Carbon Dioxide BUN Creatinine Glucose POC Glucose 156 H 164 H Lactic Acid Calcium Phosphorus Magnesium Ferritin Lactate Dehydrogenase C-Reactive Protein NT-Pro-B Natriuret Pep Total Protein Albumin Triglycerides Arterial Blood Glucose Urine pH Ur Specific [place] Coronavirus (PCR) 04/11/21 04/11/21 04/11/21 06:47 06:47 11:29 WBC RBC 3.35 L Hgb 9.8 L Hct 30.7 L MCV MCHC RDW 16.3 H Plt Count 520 H Lymph % (Auto) [place] % (Auto) Lymph # (Auto) [place] # (Auto) Seg Neutrophils % Seg Neuts % (Manual) 76.0 H Lymphocytes % (Manual) 10.0 L Monocytes % (Manual) Nucleated RBC % Seg Neutrophils # Seg Neutrophils # Man 8.3 H Lymphocytes # (Manual) 1.1 L Monocytes # (Manual) PT INR APTT D-Dimer Heparin Anti-Xa Level ABG pH POC ABG pCO2 POC ABG pO2 ABG pO2 ABG HCO3 ABG O2 Saturation ABG Base Excess ABG Hemoglobin ABG Oxyhemoglobin ABG Sodium ABG Potassium ABG Glucose Oxyhemoglobin Sodium Potassium Chloride 97.7 L Carbon Dioxide 34 H BUN Creatinine 0.4 L Glucose 178 H POC Glucose 170 H Lactic Acid Calcium Phosphorus Magnesium Ferritin Lactate Dehydrogenase C-Reactive Protein NT-Pro-B Natriuret Pep Total Protein Albumin Triglycerides Arterial Blood Glucose Urine pH Ur Specific [place] Coronavirus (PCR) 04/11/21 04/11/21 04/11/21 18:17 18:17 18:17 WBC RBC 3.22 L Hgb 9.5 L Hct 29.8 L MCV MCHC RDW 16.0 H Plt Count Lymph % (Auto) [place] % (Auto) Lymph # (Auto) [place] # (Auto) Seg Neutrophils % Seg Neuts % (Manual) Lymphocytes % (Manual) Monocytes % (Manual) Nucleated RBC % Seg Neutrophils # Seg Neutrophils # Man Lymphocytes # (Manual) Monocytes # (Manual) PT INR APTT 61.1 H* D-Dimer Heparin Anti-Xa Level ABG pH POC ABG pCO2 POC ABG pO2 ABG pO2 ABG HCO3 ABG O2 Saturation ABG Base Excess ABG Hemoglobin ABG Oxyhemoglobin ABG Sodium ABG Potassium ABG Glucose Oxyhemoglobin Sodium Potassium Chloride Carbon Dioxide BUN Creatinine 0.3 L Glucose POC Glucose Lactic Acid Calcium Phosphorus Magnesium Ferritin Lactate Dehydrogenase C-Reactive Protein NT-Pro-B Natriuret Pep Total Protein Albumin Triglycerides Arterial Blood Glucose Urine pH Ur Specific [place] Coronavirus (PCR) 04/11/21 04/12/21 04/12/21 18:25 00:19 05:11 WBC RBC 2.92 L Hgb 8.6 L Hct 26.9 L MCV MCHC RDW 16.3 H Plt Count 460 H Lymph % (Auto) [place] % (Auto) Lymph # (Auto) [place] # (Auto) Seg Neutrophils % Seg Neuts % (Manual) Lymphocytes % (Manual) Monocytes % (Manual) Nucleated RBC % Seg Neutrophils # Seg Neutrophils # Man Lymphocytes # (Manual) Monocytes # (Manual) PT INR APTT D-Dimer Heparin Anti-Xa Level ABG pH POC ABG pCO2 POC ABG pO2 ABG pO2 ABG HCO3 ABG O2 Saturation ABG Base Excess ABG Hemoglobin ABG Oxyhemoglobin ABG Sodium ABG Potassium ABG Glucose Oxyhemoglobin Sodium Potassium Chloride Carbon Dioxide BUN Creatinine Glucose POC Glucose 167 H 128 H Lactic Acid Calcium Phosphorus Magnesium Ferritin Lactate Dehydrogenase C-Reactive Protein NT-Pro-B Natriuret Pep Total Protein Albumin Triglycerides Arterial Blood Glucose Urine pH Ur Specific [place] Coronavirus (PCR) 04/12/21 04/12/21 04/12/21 05:11 05:11 06:23 WBC RBC Hgb Hct MCV MCHC RDW Plt Count Lymph % (Auto) [place] % (Auto) Lymph # (Auto) [place] # (Auto) Seg Neutrophils % Seg Neuts % (Manual) Lymphocytes % (Manual) Monocytes % (Manual) Nucleated RBC % Seg Neutrophils # Seg Neutrophils # Man Lymphocytes # (Manual) Monocytes # (Manual) PT INR APTT D-Dimer Heparin Anti-Xa Level 1.03 H ABG pH POC ABG pCO2 POC ABG pO2 ABG pO2 ABG HCO3 ABG O2 Saturation ABG Base Excess ABG Hemoglobin ABG Oxyhemoglobin ABG Sodium ABG Potassium ABG Glucose Oxyhemoglobin Sodium Potassium Chloride Carbon Dioxide 34 H BUN Creatinine 0.3 L Glucose 153 H POC Glucose 162 H Lactic Acid Calcium Phosphorus Magnesium Ferritin Lactate Dehydrogenase C-Reactive Protein NT-Pro-B Natriuret Pep Total Protein Albumin Triglycerides Arterial Blood Glucose Urine pH Ur Specific [place] Coronavirus (PCR) 04/12/21 04/12/21 04/12/21 09:45 11:08 15:56 WBC RBC Hgb Hct MCV MCHC RDW Plt Count Lymph % (Auto) [place] % (Auto) Lymph # (Auto) [place] # (Auto) Seg Neutrophils % Seg Neuts % (Manual) Lymphocytes % (Manual) Monocytes % (Manual) Nucleated RBC % Seg Neutrophils # Seg Neutrophils # Man Lymphocytes # (Manual) Monocytes # (Manual) PT INR APTT D-Dimer Heparin Anti-Xa Level ABG pH POC ABG pCO2 POC ABG pO2 ABG pO2 70.8 L ABG HCO3 41.0 H ABG O2 Saturation ABG Base Excess 13.7 H ABG Hemoglobin 8.3 L ABG Oxyhemoglobin ABG Sodium ABG Potassium ABG Glucose Oxyhemoglobin 94.0 L Sodium Potassium Chloride Carbon Dioxide BUN Creatinine Glucose POC Glucose 174 H 146 H Lactic Acid Calcium Phosphorus Magnesium Ferritin Lactate Dehydrogenase C-Reactive Protein NT-Pro-B Natriuret Pep Total Protein Albumin Triglycerides Arterial Blood Glucose Urine pH Ur Specific [place] Coronavirus (PCR) 04/12/21 04/12/21 04/13/21 21:55 23:25 04:34 WBC 12.5 H RBC 2.97 L Hgb 8.9 L Hct 27.3 L MCV MCHC RDW 16.4 H Plt Count 470 H Lymph % (Auto) [place] % (Auto) Lymph # (Auto) [place] # (Auto) Seg Neutrophils % Seg Neuts % (Manual) Lymphocytes % (Manual) Monocytes % (Manual) Nucleated RBC % Seg Neutrophils # Seg Neutrophils # Man Lymphocytes # (Manual) Monocytes # (Manual) PT INR APTT D-Dimer Heparin Anti-Xa Level ABG pH POC ABG pCO2 POC ABG pO2 ABG pO2 ABG HCO3 ABG O2 Saturation ABG Base Excess ABG Hemoglobin ABG Oxyhemoglobin ABG Sodium ABG Potassium ABG Glucose Oxyhemoglobin Sodium Potassium Chloride Carbon Dioxide BUN Creatinine Glucose POC Glucose 142 H 170 H Lactic Acid Calcium Phosphorus Magnesium Ferritin Lactate Dehydrogenase C-Reactive Protein NT-Pro-B Natriuret Pep Total Protein Albumin Triglycerides Arterial Blood Glucose Urine pH Ur Specific [place] Coronavirus (PCR) 04/13/21 04/13/21 04/13/21 04:34 05:17 11:14 WBC RBC Hgb Hct MCV MCHC RDW Plt Count Lymph % (Auto) [place] % (Auto) Lymph # (Auto) [place] # (Auto) Seg Neutrophils % Seg Neuts % (Manual) Lymphocytes % (Manual) Monocytes % (Manual) Nucleated RBC % Seg Neutrophils # Seg Neutrophils # Man Lymphocytes # (Manual) Monocytes # (Manual) PT INR APTT D-Dimer Heparin Anti-Xa Level ABG pH POC ABG pCO2 POC ABG pO2 ABG pO2 ABG HCO3 ABG O2 Saturation ABG Base Excess ABG Hemoglobin ABG Oxyhemoglobin ABG Sodium ABG Potassium ABG Glucose Oxyhemoglobin Sodium Potassium Chloride 96.6 L Carbon Dioxide 41 H* D BUN Creatinine 0.3 L Glucose 171 H POC Glucose 141 H 149 H Lactic Acid Calcium Phosphorus Magnesium Ferritin Lactate Dehydrogenase C-Reactive Protein NT-Pro-B Natriuret Pep Total Protein Albumin Triglycerides Arterial Blood Glucose Urine pH Ur Specific [place] Coronavirus (PCR) 04/13/21 04/13/21 04/14/21 15:51 23:35 04:32 WBC 13.8 H RBC 2.64 L Hgb 8.0 L Hct 24.1 L MCV MCHC RDW 16.1 H Plt Count Lymph % (Auto) [place] % (Auto) Lymph # (Auto) [place] # (Auto) Seg Neutrophils % Seg Neuts % (Manual) Lymphocytes % (Manual) Monocytes % (Manual) Nucleated RBC % Seg Neutrophils # Seg Neutrophils # Man Lymphocytes # (Manual) Monocytes # (Manual) PT INR APTT D-Dimer Heparin Anti-Xa Level ABG pH POC ABG pCO2 POC ABG pO2 ABG pO2 ABG HCO3 ABG O2 Saturation ABG Base Excess ABG Hemoglobin ABG Oxyhemoglobin ABG Sodium ABG Potassium ABG Glucose Oxyhemoglobin Sodium Potassium Chloride Carbon Dioxide BUN Creatinine Glucose POC Glucose 136 H 167 H Lactic Acid Calcium Phosphorus Magnesium Ferritin Lactate Dehydrogenase C-Reactive Protein NT-Pro-B Natriuret Pep Total Protein Albumin Triglycerides Arterial Blood Glucose Urine pH Ur Specific [place] Coronavirus (PCR) 04/14/21 04/14/2104/14/22 04:32 05:18 11:03 WBC RBC Hgb Hct MCV MCHC RDW Plt Count Lymph % (Auto) [place] % (Auto) Lymph # (Auto) [place] # (Auto) Seg Neutrophils % Seg Neuts % (Manual) Lymphocytes % (Manual) Monocytes % (Manual) Nucleated RBC % Seg Neutrophils # Seg Neutrophils # Man Lymphocytes # (Manual) Monocytes # (Manual) PT INR APTT D-Dimer Heparin Anti-Xa Level ABG pH POC ABG pCO2 POC ABG pO2 ABG pO2 ABG HCO3 ABG O2 Saturation ABG Base Excess ABG Hemoglobin ABG Oxyhemoglobin ABG Sodium ABG Potassium ABG Glucose Oxyhemoglobin Sodium Potassium Chloride 95.5 L Carbon Dioxide 38 H BUN Creatinine 0.4 L Glucose 141 H POC Glucose 140 H 143 H Lactic Acid Calcium Phosphorus Magnesium Ferritin Lactate Dehydrogenase C-Reactive Protein NT-Pro-B Natriuret Pep Total Protein Albumin Triglycerides Arterial Blood Glucose Urine pH Ur Specific [place] Coronavirus (PCR) 04/14/21 04/14/21 04/14/21 16:38 23:46 Unknown WBC RBC Hgb Hct MCV MCHC RDW Plt Count Lymph % (Auto) [place] % (Auto) Lymph # (Auto) [place] # (Auto) Seg Neutrophils % Seg Neuts % (Manual) Lymphocytes % (Manual) Monocytes % (Manual) Nucleated RBC % Seg Neutrophils # Seg Neutrophils # Man Lymphocytes # (Manual) Monocytes # (Manual) PT INR APTT D-Dimer Heparin Anti-Xa Level ABG pH POC ABG pCO2 POC ABG pO2 ABG pO2 ABG HCO3 ABG O2 Saturation ABG Base Excess ABG Hemoglobin ABG Oxyhemoglobin ABG Sodium ABG Potassium ABG Glucose Oxyhemoglobin Sodium Potassium Chloride Carbon Dioxide BUN Creatinine Glucose POC Glucose 157 H 155 H Lactic Acid Calcium Phosphorus Magnesium Ferritin Lactate Dehydrogenase C-Reactive Protein NT-Pro-B Natriuret Pep Total Protein Albumin Triglycerides Arterial Blood Glucose Urine pH 8.0 H Ur Specific [place] Coronavirus (PCR) 04/15/21 04/15/21 04/15/21 04:44 04:44 05:52 WBC 15.8 H RBC 2.96 L Hgb 8.9 L Hct 27.1 L MCV MCHC RDW 16.5 H Plt Count 507 H Lymph % (Auto) [place] % (Auto) Lymph # (Auto) [place] # (Auto) Seg Neutrophils % Seg Neuts % (Manual) Lymphocytes % (Manual) Monocytes % (Manual) Nucleated RBC % Seg Neutrophils # Seg Neutrophils # Man Lymphocytes # (Manual) Monocytes # (Manual) PT INR APTT D-Dimer Heparin Anti-Xa Level ABG pH POC ABG pCO2 POC ABG pO2 ABG pO2 ABG HCO3 ABG O2 Saturation ABG Base Excess ABG Hemoglobin ABG Oxyhemoglobin ABG Sodium ABG Potassium ABG Glucose Oxyhemoglobin Sodium Potassium Chloride 96.9 L Carbon Dioxide 38 H BUN Creatinine 0.4 L Glucose 163 H POC Glucose 167 H Lactic Acid Calcium Phosphorus Magnesium Ferritin Lactate Dehydrogenase C-Reactive Protein NT-Pro-B Natriuret Pep Total Protein Albumin Triglycerides Arterial Blood Glucose Urine pH Ur Specific [place] Coronavirus (PCR) 04/15/21 04/15/21 04/15/21 11:35 17:20 18:10 WBC RBC Hgb Hct MCV MCHC RDW Plt Count Lymph % (Auto) [place] % (Auto) Lymph # (Auto) [place] # (Auto) Seg Neutrophils % Seg Neuts % (Manual) Lymphocytes % (Manual) Monocytes % (Manual) Nucleated RBC % Seg Neutrophils # Seg Neutrophils # Man Lymphocytes # (Manual) Monocytes # (Manual) PT INR APTT D-Dimer Heparin Anti-Xa Level ABG pH 7.477 H POC ABG pCO2 POC ABG pO2 ABG pO2 ABG HCO3 40.6 H ABG O2 Saturation ABG Base Excess 15.2 H ABG Hemoglobin 9.0 L ABG Oxyhemoglobin ABG Sodium ABG Potassium ABG Glucose Oxyhemoglobin 94.7 L Sodium Potassium Chloride Carbon Dioxide BUN Creatinine Glucose POC Glucose 179 H 165 H Lactic Acid Calcium Phosphorus Magnesium Ferritin Lactate Dehydrogenase C-Reactive Protein NT-Pro-B Natriuret Pep Total Protein Albumin Triglycerides Arterial Blood Glucose Urine pH Ur Specific [place] Coronavirus (PCR) 04/15/21 04/16/21 04/16/21 23:39 04:33 04:33 WBC 13.1 H RBC 3.26 L Hgb 9.5 L Hct 30.2 L MCV MCHC 31 L RDW 16.2 H Plt Count Lymph % (Auto) [place] % (Auto) Lymph # (Auto) [place] # (Auto) Seg Neutrophils % Seg Neuts % (Manual) Lymphocytes % (Manual) Monocytes % (Manual) Nucleated RBC % Seg Neutrophils # Seg Neutrophils # Man Lymphocytes # (Manual) Monocytes # (Manual) PT INR APTT D-Dimer Heparin Anti-Xa Level ABG pH POC ABG pCO2 POC ABG pO2 ABG pO2 ABG HCO3 ABG O2 Saturation ABG Base Excess ABG Hemoglobin ABG Oxyhemoglobin ABG Sodium ABG Potassium ABG Glucose Oxyhemoglobin Sodium Potassium Chloride 95.8 L Carbon Dioxide 34 H BUN 24 H Creatinine 0.4 L Glucose 153 H POC Glucose 155 H Lactic Acid Calcium Phosphorus Magnesium 2.40 H Ferritin Lactate Dehydrogenase C-Reactive Protein NT-Pro-B Natriuret Pep Total Protein Albumin Triglycerides Arterial Blood Glucose Urine pH Ur Specific [place] Coronavirus (PCR) 04/16/21 04/16/21 04/16/21 04:55 05:29 11:02 WBC RBC Hgb Hct MCV MCHC RDW Plt Count Lymph % (Auto) [place] % (Auto) Lymph # (Auto) [place] # (Auto) Seg Neutrophils % Seg Neuts % (Manual) Lymphocytes % (Manual) Monocytes % (Manual) Nucleated RBC % Seg Neutrophils # Seg Neutrophils # Man Lymphocytes # (Manual) Monocytes # (Manual) PT INR APTT D-Dimer Heparin Anti-Xa Level ABG pH 7.487 H POC ABG pCO2 POC ABG pO2 ABG pO2 75.4 L ABG HCO3 40.6 H ABG O2 Saturation ABG Base Excess 15.3 H ABG Hemoglobin 8.9 L ABG Oxyhemoglobin ABG Sodium ABG Potassium ABG Glucose Oxyhemoglobin Sodium Potassium Chloride Carbon Dioxide BUN Creatinine Glucose POC Glucose 168 H 170 H Lactic Acid Calcium Phosphorus Magnesium Ferritin Lactate Dehydrogenase C-Reactive Protein NT-Pro-B Natriuret Pep Total Protein Albumin Triglycerides Arterial Blood Glucose Urine pH Ur Specific [place] Coronavirus (PCR) 04/16/21 04/16/21 04/17/21 16:13 23:41 04:25 WBC 12.5 H RBC 3.00 L Hgb 8.9 L Hct 27.2 L MCV MCHC RDW 16.0 H Plt Count Lymph % (Auto) [place] % (Auto) Lymph # (Auto) [place] # (Auto) Seg Neutrophils % Seg Neuts % (Manual) Lymphocytes % (Manual) Monocytes % (Manual) Nucleated RBC % Seg Neutrophils # Seg Neutrophils # Man Lymphocytes # (Manual) Monocytes # (Manual) PT INR APTT D-Dimer Heparin Anti-Xa Level ABG pH POC ABG pCO2 POC ABG pO2 ABG pO2 ABG HCO3 ABG O2 Saturation ABG Base Excess ABG Hemoglobin ABG Oxyhemoglobin ABG Sodium ABG Potassium ABG Glucose Oxyhemoglobin Sodium Potassium Chloride Carbon Dioxide BUN Creatinine Glucose POC Glucose 167 H 150 H Lactic Acid Calcium Phosphorus Magnesium Ferritin Lactate Dehydrogenase C-Reactive Protein NT-Pro-B Natriuret Pep Total Protein Albumin Triglycerides Arterial Blood Glucose Urine pH Ur Specific [place] Coronavirus (PCR) 04/17/21 04/17/21 04/17/21 04:25 05:23 11:18 WBC RBC Hgb Hct MCV MCHC RDW Plt Count Lymph % (Auto) [place] % (Auto) Lymph # (Auto) [place] # (Auto) Seg Neutrophils % Seg Neuts % (Manual) Lymphocytes % (Manual) Monocytes % (Manual) Nucleated RBC % Seg Neutrophils # Seg Neutrophils # Man Lymphocytes # (Manual) Monocytes # (Manual) PT INR APTT D-Dimer Heparin Anti-Xa Level ABG pH POC ABG pCO2 POC ABG pO2 ABG pO2 ABG HCO3 ABG O2 Saturation ABG Base Excess ABG Hemoglobin ABG Oxyhemoglobin ABG Sodium ABG Potassium ABG Glucose Oxyhemoglobin Sodium 136 L Potassium Chloride 92.4 L Carbon Dioxide 36 H BUN 23 H Creatinine 0.4 L Glucose 145 H POC Glucose 128 H 163 H Lactic Acid Calcium Phosphorus Magnesium Ferritin Lactate Dehydrogenase C-Reactive Protein NT-Pro-B Natriuret Pep Total Protein Albumin Triglycerides Arterial Blood Glucose Urine pH Ur Specific [place] Coronavirus (PCR) 04/17/21 04/17/21 04/18/21 16:50 21:04 00:18 WBC RBC Hgb Hct MCV MCHC RDW Plt Count Lymph % (Auto) [place] % (Auto) Lymph # (Auto) [place] # (Auto) Seg Neutrophils % Seg Neuts % (Manual) Lymphocytes % (Manual) Monocytes % (Manual) Nucleated RBC % Seg Neutrophils # Seg Neutrophils # Man Lymphocytes # (Manual) Monocytes # (Manual) PT INR APTT D-Dimer Heparin Anti-Xa Level ABG pH POC ABG pCO2 POC ABG pO2 ABG pO2 ABG HCO3 ABG O2 Saturation ABG Base Excess ABG Hemoglobin ABG Oxyhemoglobin ABG Sodium ABG Potassium ABG Glucose Oxyhemoglobin Sodium Potassium Chloride Carbon Dioxide BUN Creatinine Glucose POC Glucose 137 H 186 H 194 H Lactic Acid Calcium Phosphorus Magnesium Ferritin Lactate Dehydrogenase C-Reactive Protein NT-Pro-B Natriuret Pep Total Protein Albumin Triglycerides Arterial Blood Glucose Urine pH Ur Specific [place] Coronavirus (PCR) 04/18/21 04/18/21 04/18/21 04:20 04:20 05:21 WBC 14.2 H RBC 2.92 L Hgb 8.5 L Hct 26.3 L MCV MCHC RDW 16.1 H Plt Count Lymph % (Auto) [place] % (Auto) Lymph # (Auto) [place] # (Auto) Seg Neutrophils % Seg Neuts % (Manual) Lymphocytes % (Manual) Monocytes % (Manual) Nucleated RBC % Seg Neutrophils # Seg Neutrophils # Man Lymphocytes # (Manual) Monocytes # (Manual) PT INR APTT D-Dimer Heparin Anti-Xa Level ABG pH POC ABG pCO2 POC ABG pO2 ABG pO2 ABG HCO3 ABG O2 Saturation ABG Base Excess ABG Hemoglobin ABG Oxyhemoglobin ABG Sodium ABG Potassium ABG Glucose Oxyhemoglobin Sodium Potassium Chloride 95.7 L Carbon Dioxide 33 H BUN 21 H Creatinine 0.3 L Glucose 120 H POC Glucose 107 H Lactic Acid Calcium Phosphorus Magnesium Ferritin Lactate Dehydrogenase C-Reactive Protein NT-Pro-B Natriuret Pep Total Protein Albumin Triglycerides Arterial Blood Glucose Urine pH Ur Specific [place] Coronavirus (PCR) 04/18/21 04/18/21 04/18/21 05:26 11:30 11:33 WBC RBC Hgb Hct MCV MCHC RDW Plt Count Lymph % (Auto) [place] % (Auto) Lymph # (Auto) [place] # (Auto) Seg Neutrophils % Seg Neuts % (Manual) Lymphocytes % (Manual) Monocytes % (Manual) Nucleated RBC % Seg Neutrophils # Seg Neutrophils # Man Lymphocytes # (Manual) Monocytes # (Manual) PT INR APTT D-Dimer Heparin Anti-Xa Level ABG pH 7.469 H POC ABG pCO2 POC ABG pO2 ABG pO2 108.9 H ABG HCO3 36.2 H ABG O2 Saturation ABG Base Excess 11.2 H ABG Hemoglobin 8.8 L ABG Oxyhemoglobin ABG Sodium ABG Potassium ABG Glucose Oxyhemoglobin Sodium Potassium Chloride Carbon Dioxide BUN Creatinine Glucose POC Glucose 111 H 113 H Lactic Acid Calcium Phosphorus Magnesium Ferritin Lactate Dehydrogenase C-Reactive Protein NT-Pro-B Natriuret Pep Total Protein Albumin Triglycerides Arterial Blood Glucose Urine pH Ur Specific [place] Coronavirus (PCR) 04/18/21 04/18/21 04/19/21 16:53 23:26 04:26 WBC 13.6 H RBC 2.69 L Hgb 8.5 L Hct 24.4 L MCV MCHC 35 H RDW 15.9 H Plt Count Lymph % (Auto) [place] % (Auto) Lymph # (Auto) [place] # (Auto) Seg Neutrophils % Seg Neuts % (Manual) Lymphocytes % (Manual) Monocytes % (Manual) Nucleated RBC % Seg Neutrophils # Seg Neutrophils # Man Lymphocytes # (Manual) Monocytes # (Manual) PT INR APTT D-Dimer Heparin Anti-Xa Level ABG pH POC ABG pCO2 POC ABG pO2 ABG pO2 ABG HCO3 ABG O2 Saturation ABG Base Excess ABG Hemoglobin ABG Oxyhemoglobin ABG Sodium ABG Potassium ABG Glucose Oxyhemoglobin Sodium Potassium Chloride Carbon Dioxide BUN Creatinine Glucose POC Glucose 139 H 137 H Lactic Acid Calcium Phosphorus Magnesium Ferritin Lactate Dehydrogenase C-Reactive Protein NT-Pro-B Natriuret Pep Total Protein Albumin Triglycerides Arterial Blood Glucose Urine pH Ur Specific [place] Coronavirus (PCR) 04/19/21 04/19/21 04:26 05:16 WBC RBC Hgb Hct MCV MCHC RDW Plt Count Lymph % (Auto) [place] % (Auto) Lymph # (Auto) [place] # (Auto) Seg Neutrophils % Seg Neuts % (Manual) Lymphocytes % (Manual) Monocytes % (Manual) Nucleated RBC % Seg Neutrophils # Seg Neutrophils # Man Lymphocytes # (Manual) Monocytes # (Manual) PT INR APTT D-Dimer Heparin Anti-Xa Level ABG pH POC ABG pCO2 POC ABG pO2 ABG pO2 ABG HCO3 ABG O2 Saturation ABG Base Excess ABG Hemoglobin ABG Oxyhemoglobin ABG Sodium ABG Potassium ABG Glucose Oxyhemoglobin Sodium Potassium Chloride Carbon Dioxide BUN Creatinine 0.3 L Glucose 163 H POC Glucose 154 H Lactic Acid Calcium Phosphorus Magnesium Ferritin Lactate Dehydrogenase C-Reactive Protein NT-Pro-B Natriuret Pep Total Protein Albumin Triglycerides Arterial Blood Glucose Urine pH Ur Specific [place] Coronavirus (PCR) Allied health notes reviewed: nursing
[2021-04-19] MEDS: amLODIPine 5 MG TAB PO SCH (11:10)
[2021-04-19] MEDS: DOXAZOSIN 1 MG TAB PO SCH ×2 (11:13→21:03)
[2021-04-19] MEDS: APIXABAN 5 MG TAB PO SCH ×2 (11:15→21:03)
[2021-04-19] MEDS: METOPROLOL TARTRATE 25 MG TAB PO SCH ×2 (11:16→21:03)
[2021-04-19] MEDS: FAMOTIDINE 20 MG TAB FEEDTUBE SCH ×2 (11:16→21:03)
[2021-04-19] MEDS: POLYETHYLENE GLYCOL 3350 17 GM POWDER FEEDTUBE SCH (11:16)
[2021-04-19] MEDS: SENNOSIDES/DOCUSATE SODIUM 8.6/50 MG TAB FEEDTUBE SCH ×2 (11:17→21:03)
[2021-04-19] MEDS: SCOPOLAMINE TRANSDERMAL PATCH 72 HR TD SCH (13:41)
[2021-04-19] MEDS: GLYCOPYRROLATE 1 MG TAB PO SCH ×2 (13:42→20:58)
--- NOTE | 2021-04-19 16:24 | Progress Note ---
Assessment and Plan Assessment and plan: This is a 61-year-old man with HTN and DM admitted with COVID-19 pneumonia, acute hypoxic respiratory failure, sepsis Neuro: Acute encephalopathy -s/p fentanyl gtt, Seroquel and Librium -Avoid delirium -Reorientation as needed -Maintain sleep-wake cycle -As needed analgesia -admit: CT head shows no acute intracranial abnormality -Neurology consulted, appreciate recommendations -04/10 CT head shows no focal mass, hemorrhage, hydrocephalus or acute large territorial infarct but shows significant sinus disease with significant opacification of the mastoids bilaterally and mild middle ear cavity disease suggested as well -MRI brain shows no gross evidence of acute or significant intracranial abnormality, exam limited by motion artifact, partial opacification of mastoid air cells bilaterally, more extensively on the right, no definite evidence of fluid within the middle ear cavity. Cardiac: h/o Hypertension -Cardiology consulted, appreciate recommendations -Blood pressure monitoring per protocol -Echocardiogram shows a mildly dilated ascending aorta, normal LV systolic function, mild concentric LVH, LVEF 60 to 65% -Antihypertensive regimen: Hydralazine, metoprolol, amlodipine Respiratory: Acute hypoxic respiratory failure -[facility] consulted, appreciate recommendations -Intubated on 03/10 with 7.50 ETT at 24 at the lips, s/p trach on 03/29 -A.m. vent settings: Assist-control rate 12, tidal volume 450, PEEP 6, FiO2 35% -T-piece trials as tolerated -Albuterol as needed, Brovana, Pulmicort -VAP bundle -SPO2 monitoring GI: Obesity, external hemorrhoids -24 hours -530 mL -PPI -NTR consulted for tube feedings -BR: Senokot, miralax -BM 04/17 -As needed Preparation H : Urinary retention -Nephrology consulted, appreciate recommendations -Strict intake and output -Renally dose medications -Avoid nephrotoxic medications -Doxazosin increased to twice daily -Good catheter removed 04/17 and patient had to be straight cath x2 however did eventually have spontaneous urine output -Will continue to monitor -Lasix -trend BMP ID: Severe sepsis (POA), COVID-19 pneumonia, stenotrophomonas maltophilia in tracheal aspirate -Infectious disease consulted, appreciate recommendations -S/p remdesivir for 5 days -S/p Actemra 03/10/2021 -f/u blood culture -Monitor WBC and temperature curve -s/p steroids -IV Cefepime + Vancomycin started 04/15-04/23 -f/u procal in am -03/16 Fungitell and histoplasma negative Heme: Acute right upper extremity DVT , superficial thrombus in left gastrocnemius vein -Bilateral lower extremity ultrasound negative for DVT, superficial thrombus in left gastrocnemius vein -repeat BLE Doppler US show superficial thrombus -Repeat bilateral upper extremity ultrasound shows DVT in right upper extremity -heparin drip to eliquis PO -repeat BLE UE dopplar showed superficial thrombus within the gastrocnemius vein unchanged from previous study -CTA chest shows no gross pulm embolism -Trend CBC -SCDs to BLE while in bed -Transfuse hemoglobin less than 7 -Monitor for signs of bleeding Endo: h/o DM -Avoid hypoglycemia -SSI -Accu-Cheks q. 6 -Long-acting insulin, titrate as needed The high probability of a clinically significant, sudden or life threatening deterioration of the [multi] system(s) required my full and direct attention, intervention and personal management. The aggregate critical care time was [60] minutes. This time is in addition to time spent performing reported procedures but includes the following: [x] Data Review and interpretation [x] Patient assessment and monitoring of vital signs [x] Documentation [x] Medication orders and management Disposition Plan: icu Total Time Spent with Patient (Minutes): 60 History Interval history: This is a 61-year-old male with HTN and DM who presented to the emergency department on 03/09 with shortness of breath and hypoxia via EMS. Patient had apparently been feeling ill for proxy 1 week prior to mentation. Upon EMS arrival patient SPO2 was in the low 70s and improved to upper 80slow 90s on nonrebreather and he was transported to [facility] in the emergency department patient was noted to be hypoxic and placed on a BiPAP with improvement to mentation and hypoxia. CXR showed bilateral patchy infiltrates. Lab work showed leukocytosis, elevated D-dimer, hyponatremia, hypochloremia and elevated COVID-19 markers with elevated BNP. CTA chest showed no pulmonary embolism. Patient was admitted to the hospitalist service as a COVID-19 PUI and started on antibiotics and Decadron with consult to infectious disease. 03/09: The patient was seen and evaluated today, and he was found to be hemodynamically stable. The patient is currently on BiPAP for possible COVID-19 pneumonia. He was started on Lovenox 1mg/kg for DVT ppx in the setting of d- dimer > 10,000. Infectious Disease was consulted. The patient is pending a TTE. 03/10: No acute events overnight, patient was intubated in the afternoon transferred to ICU 03/11: Patient started on Lantus, free water flushes increased, propofol drip resumed and oral antihypertensive added. 03/12: lantus increased, k at 5, will monitor. I updated his family and his stated that he is not vaccinated. He does have HTN and she will call the RN to update home medications. She did say he takes bystolic and amlopine. She inquired about ventilator and lab work. She had no further questions. 03/13: KVNG overnight. Patient remains hyperglycemic, basal insulin adjusted and increased to Q12hrs. Patient is overall net positive since admit X1 dose of IV lasix, repeat BMP this afternoon. 03/14: Failed SAT this am due to increase agitation, tachycardia and hypertension. Remains on propofol and fentanyl gtt. Hyperkalemia treated with PO kayaxalate. Patient responded to IV lasix yesterday additional dose again today for a net negative balance. Repeat BMP this afternoon. Insulin adjusted for hyperglycemia. 03/15: Remains encephalopathic, not following commansd. Orders placed for CT head/Brain and Neuro consulted. Rectal bleeding subsided, most likely due to hemorrhoids. H&H is stable will continue to monitor. Kayaxexalate for high K, repeat labs 4 to 6hrs post treatment. 03/16: Still agiated this am, CT head with no acute Abn. CXR and ABG noted- evolving pna and worsening hypoxia, now with low grade fevers. Sputum culture ordered, IV Abx added, ID on cosult. 03/17: This am ABG noted, hypoxia improved. Continue to wean FiO2 as tolerated. Still with low grade fevers, on IV Abx per ID. Still with periods of confusion despite sedation, seroquel increased. F/u CXR in the am 03/18: still very agitated especially when off sedation, with hypertension and tachycardia. Continue sedation for RASS -2, PRN antihypertensive for SPB greater than 160. This febrile this am, continue current IV abx per ID 03/19: Patient afebrile overnight, continue IV Abx per ID. ABG also improved this am, continue to wean FIO2 as tolerated. PRN antihypertensive for hypertension. 03/20: Hyperkalemia treated with Kayexalate, Good discontinued, vancomycin and cefepime stopped started Bactrim by ID. Steroid taper started. 03/21: BB started for hypertension, Seroquel increased for agitation and Librium started no acute events reported overnight. CCM made vent changes 03/22: Adjustment to anxiolytics, respiratory rate on ventilator per CCM. Patient noted to have bleeding hemorrhoids with clot, requested RN to remove bowel management system and will order Preparation H. 03/23: Given no confirmed DVT or PE (only superficial thrombus noted on Dopplers) therapeutic Lovenox changed to prophylactic Lovenox. Started on doxazosin to help with retention. Consulted surgery for tracheostomy and propofol discon tinued. 03/24: Surgery consult completed, patient changed to prophylaxis anticoagulation, started on doxazosin yesterday with plans to remove Good catheter in 48 hours. Patient with slight hypokalemia today and given Kayexalate. No acute events reported overnight. 03/25: No acute events reported overnight. Patient remains on fentanyl drip and on CPAP trial this morning. 03/26: no acute events reported overnight. placed on CPAP this AM, remains on fent/librium. scheduled for trach/peg this week. 03/27: Hypoglycemic this am, will decreased lantus to Qhs. Plan for possible Trach and Peg by Gen Surg this am. Case management to arrange possible LTAC placement 03/28: KVNG overnight. Tolerating PST this am. Plan for trach and PEG tomorrow by Gen. Surgery, NPO after midnight. 03/29: No significant changes overnight. Plan for trach and Peg today. Case management to arrange possible LTAC placement 03/30. S/p Trach and PEG, no complications noted. High residual yesterday despite NPO status, reglan added X2 days. Per RN no residual this am, patient is tolerating TF. Continue to advance TF as tolerated. Norvasc added for hypertension. Pitting edema also appreciated, some diuretic might be beneficial, will d/w CCM. Continue daily PST as tolerated. 03/31: Patient remains on the vent still on fentanyl gtt with periods of agitation. PRN analgesia added, plan to start weaning off fentanyl gtt. Febrile this am, completed IV abx course. Will panculture for now, ID is also following. 04/01: Still febrile overnight, cultures result pending, continue IV ABx per ID. Failed PST this am. Continue daily PST and vent wean per [facility]. Case management to arrange possible placement. 04/02: KVNG overnight. Fevers improved overnight, continue to follow cultures data, IV ABx per ID. Continue daily PST and wean vent as per [facility]. 04/03: Given low procalcitonin, unchanged CXR and cultures with no growth cefepime was discontinued by ID. LTAC evaluation ongoing. No acute events reported overnight. 04/04: IV Lasix stopped today, Seroquel taper started, fentanyl drip on hold and steroids stopped. Pressure support trial again today. 04/05: Patient had to be restarted on fentanyl drip therefore Seroquel was in creased back to 250 twice daily and he was started on scheduled narcotics and efforts to wean fentanyl drip. Doxazosin was increased to twice daily as patient still had retention issues on doxazosin once a day. Patient was denied LTAC placement. CPAP trial today. 04/06: Right upper extremity ultrasound obtained due to edema which showed DVT. Patient started on heparin drip. Overnight patient had hypoxia, tachypnea, tachycardia, hypotension and FiO2 was increased to 100%. RT titrating as to lerated. Plan was to start T-piece trials today. Patient has been denied LTAC placement. 04/07: BLE dopplar, continue lasix per [facility], CXR in AM. Increase in fio2 overnight d/t desaturation. Wean FiO2 as tolerated. 04/08: Patient remains on 65% FiO2, s/p Lasix for 3 doses, hyperkalemia noted today and medically treated. [facility] plans to consult heme/onc once FiO2 decreased. Remains on heparin gtt 04/09: No acute events reported overnight, possible heme-onc consult on Saturday or Saturday regarding upper extremity DVT, wean FiO2 as tolerated. Repeat CT head on Monday 04/10: Patient mentation is unchanged, repeat CT head today. Remains on heparin gtt per protocol. Continue daily PST as tolerated. 04/11: Increased work of breathing and high RR overnight, vent FiO2 increased to 55%. Resolved this am, patient is tolerating PST, no acute distress noted. Wean Fio2 as tolerated for SPO2 above 92%, Follow up CXR and ABG in the am. Antihypertensive regimen adjusted for better BP control. 04/12: Patient with coarse lungs and increased secretion today. This am CXR noted with worsen infiltrate, 40 of Lasix given, repeat CXR in the am. Patient remains afebrile, complete IV Abx course, VSS. Transitioned to PO Eliquis overnight, continue to keep patient net negative for better lung compliance. Continue daily PST as tolerated. 04/13: Patient is off sedation this am. Remains unresponsive. Librium D/C and Seroquel was adjusted to Qhs, PRN analgesia for pain management. Patient responded well to IV lasix, this am CXR with some improvement, additional IV lasix ordered again today. high CO2 also noted from this am, ABG ordered. Patient is tolerating PST this am, SPO2 remains above 95%. Continue daily PST plan to get patient off the vent for possible SNF placemement 04/14: Patient mentation is unchanged despite reducing sedative agents. Will hold all scheduled sedatives agents for now, PRN analgesics for pain management and vent synchrony. Patient spike a temp this am, orders placed for cultures, IV abx per ID. Additional lasix today, F/u CXR in the am. Patient is tolerating PST this am. 04/15: Remains febrile overnight. Culture data pending, back on IV Abx per ID. Gentle fluid management with IV lasix. Keep patient at a net negative balance. Continue daily PST as tolerated. 04/16: Open eyes spontaneously this am, but still not following commands. MRI brain ordered. Continue to avoid any sedative agents. Patient continue to respond very well to IV diuretic, continue gentle diurese X3days as tolerated. Continue daily PST as tolerated. Plan is get patient off the vent for possible S NF placement. Patient remains febrile this am, now cefepine and Vanc, continue IV abx per ID. 04/17: We will repeat procalcitonin per ID, MRI brain pending, SNF placement pending, [facility] plans to start T-piece trials in the morning and will discontinue Good catheter again. 04/18: Overnight patient to be straight cath x2 but did eventually have spontaneous urine output today and Good catheter was not replaced, patient had MRI brain today and was started on T-piece trials. He received Versed for s edation for MRI brain. 04/19: Good catheter was not replaced overnight patient is still voiding, placed on T-piece today, scopolamine and Robinul restarted. Hospitalist Physical - Constitutional Vitals: Temp Pulse Resp BP Pulse Ox 98.7 F 89 29 H 115/64 98 04/19/21 12:00 04/19/21 14:30 04/19/21 14:30 04/19/21 14:30 04/19/21 14:30 General appearance: Present: no acute distress, well-nourished, obese, other (Unresponsive) - EENT Eyes: Present: PERRL, EOM intact ENT: dentition normal - Neck Neck: Present: normal ROM - Respiratory Respiratory effort: normal Respiratory: bilateral: CTA - Cardiovascular Rhythm: regular Heart Sounds: Present: S1 & S2. Absent: systolic murmur, diastolic murmur - Extremities Extremities: no ischemia, pulses intact, pulses symmetrical, No edema, normal temperature, normal color Peripheral Pulses: within normal limits - Abdominal General gastrointestinal: soft, non-tender, non-distended, normal bowel sounds - Integumentary Integumentary: Present: warm, dry - Psychiatric Psychiatric: cooperative - Neurologic Neurologic: CNII-XII intact, no focal deficits, moves all extremities - Allied Health Allied health notes reviewed: nursing, RT, social work Results - Labs CBC & Chem 7: 04/19/21 04:26 04/19/21 04:26 Labs: Laboratory Last Values WBC 13.6 K/mm3 (4.5-11.0) H 04/19/21 04:26 RBC 2.69 M/mm3 (3.65-5.03) L 04/19/21 04:26 Hgb 8.5 gm/dl (11.8-15.2) L 04/19/21 04:26 Hct 24.4 % (35.5-45.6) L 04/19/21 04:26 MCV 91 fl (84-94) 04/19/21 04:26 MCH 32 pg (28-32) 04/19/21 04:26 MCHC 35 % (32-34) H 04/19/21 04:26 RDW 15.9 % (13.2-15.2) H 04/19/21 04:26 Plt Count 362 K/mm3 (140-440) 04/19/21 04:26 Lymph % (Auto) 7.6 % (13.4-35.0) L 03/31/21 13:30 Jay % (Auto) 9.5 % (0.0-7.3) H 03/31/21 13:30 Eos % (Auto) 4.1 % (0.0-4.3) 03/31/21 13:30 Baso % (Auto) 0.5 % (0.0-1.8) 03/31/21 13:30 Lymph # (Auto) 0.6 K/mm3 (1.2-5.4) L 03/31/21 13:30 Jay # (Auto) 0.7 K/mm3 (0.0-0.8) 03/31/21 13:30 Eos # (Auto) 0.3 K/mm3 (0.0-0.4) 03/31/21 13:30 Baso # (Auto) 0.0 K/mm3 (0.0-0.1) 03/31/21 13:30 Add Manual Diff Complete 04/11/21 06:47 Total Counted 100 04/11/21 06:47 Seg Neutrophils % 78.3 % (40.0-70.0) H 03/31/21 13:30 Seg Neuts % (Manual) 76.0 % (40.0-70.0) H 04/11/21 06:47 Band Neutrophils % 2.0 % 04/11/21 06:47 Lymphocytes % (Manual) 10.0 % (13.4-35.0) L 04/11/21 06:47 Reactive Lymphs % (Man) 0 % 04/11/21 06:47 Monocytes % (Manual) 7.0 % (0.0-7.3) 04/11/21 06:47 Eosinophils % (Manual) 4.0 % (0.0-4.3) 04/11/21 06:47 Basophils % (Manual) 0 % (0.0-1.8) 04/11/21 06:47 Metamyelocytes % 1.0 % 04/11/21 06:47 Myelocytes % 0 % 04/11/21 06:47 Promyelocytes % 0 % 04/11/21 06:47 Blast Cells % 0 % 04/11/21 06:47 Nucleated RBC % Not Reportable 04/11/21 06:47 Seg Neutrophils # 5.8 K/mm3 (1.8-7.7) 03/31/21 13:30 Seg Neutrophils # Man 8.3 K/mm3 (1.8-7.7) H 04/11/21 06:47 Band Neutrophils # 0.2 K/mm3 04/11/21 06:47 Lymphocytes # (Manual) 1.1 K/mm3 (1.2-5.4) L 04/11/21 06:47 Abs React Lymphs (Man) 0.0 K/mm3 04/11/21 06:47 Monocytes # (Manual) 0.8 K/mm3 (0.0-0.8) 04/11/21 06:47 Eosinophils # (Manual) 0.4 K/mm3 (0.0-0.4) 04/11/21 06:47 Basophils # (Manual) 0.0 K/mm3 (0.0-0.1) 04/11/21 06:47 Metamyelocytes # 0.1 K/mm3 04/11/21 06:47 Myelocytes # 0.0 K/mm3 04/11/21 06:47 Promyelocytes # 0.0 K/mm3 04/11/21 06:47 Blast Cells # 0.0 K/mm3 04/11/21 06:47 WBC Morphology Not Reportable 04/11/21 06:47 Hypersegmented Neuts Not Reportable 04/11/21 06:47 Hyposegmented Neuts Not Reportable 04/11/21 06:47 Hypogranular Neuts Not Reportable 04/11/21 06:47 Smudge Cells Not Reportable 04/11/21 06:47 Toxic Granulation 1+ 04/11/21 06:47 Toxic Vacuolation Not Reportable 04/11/21 06:47 Dohle Bodies Not Reportable 04/11/21 06:47 Pelger-Huet Anomaly Not Reportable 04/11/21 06:47 Mely Rods Not Reportable 04/11/21 06:47 Platelet Estimate Consistent w auto 04/11/21 06:47 Clumped Platelets Not Reportable 04/11/21 06:47 Plt Clumps, EDTA Not Reportable 04/11/21 06:47 Large Platelets Not Reportable 04/11/21 06:47 Giant Platelets Not Reportable 04/11/21 06:47 Platelet Satelliting Not Reportable 04/11/21 06:47 Plt Morphology Comment Not Reportable 04/11/21 06:47 RBC Morphology Not Reportable 04/11/21 06:47 Dimorphic RBCs Not Reportable 04/11/21 06:47 Polychromasia Not Reportable 04/11/21 06:47 Hypochromasia Not Reportable 04/11/21 06:47 Poikilocytosis Not Reportable 04/11/21 06:47 Anisocytosis 1+ 04/11/21 06:47 Microcytosis Not Reportable 04/11/21 06:47 Macrocytosis Not Reportable 04/11/21 06:47 Spherocytes Not Reportable 04/11/21 06:47 Pappenheimer Bodies Not Reportable 04/11/21 06:47 Sickle Cells Not Reportable 04/11/21 06:47 Target Cells Not Reportable 04/11/21 06:47 Tear Drop Cells Not Reportable 04/11/21 06:47 Ovalocytes Not Reportable 04/11/21 06:47 Helmet Cells Not Reportable 04/11/21 06:47 [place] Bodies Not Reportable 04/11/21 06:47 [place]ley Rings Not Reportable 04/11/21 06:47 [place] Cells Not Reportable 04/11/21 06:47 Bite Cells Not Reportable 04/11/21 06:47 Crenated Cell Not Reportable 04/11/21 06:47 Elliptocytes Not Reportable 04/11/21 06:47 Acanthocytes (Spur) Not Reportable 04/11/21 06:47 Rouleaux Not Reportable 04/11/21 06:47 Hemoglobin C Crystals Not Reportable 04/11/21 06:47 Schistocytes Not Reportable 04/11/21 06:47 Malaria parasites Not Reportable 04/11/21 06:47 Shaheen Bodies Not Reportable 04/11/21 06:47 Hem Pathologist Commnt No 04/11/21 06:47 PT 13.4 Sec. (12.2-14.9) 04/11/21 18:17 INR 0.92 (0.87-1.13) 04/11/21 18:17 APTT 61.1 Sec. (24.2-36.6) H* 04/11/21 18:17 D-Dimer 1359.12 ng/mlDDU (0-234) H 03/17/21 04:40 Heparin Anti-Xa Level 1.03 U.I./ml (0.3-0.7) H 04/12/21 05:11 ABG pH 7.469 pH Units (7.350-7.450) H 04/18/21 11:30 POC ABG pCO2 57.4 mmHg (32.0-48.0) H 04/06/21 04:49 ABG pCO2 50.9 mm Hg 04/18/21 11:30 POC ABG pO2 55.1 mmHg (83-108) L 04/06/21 04:49 ABG pO2 108.9 mm Hg (80.0-90.0) H 04/18/21 11:30 POC ABG HCO3 36.2 04/06/21 04:49 ABG HCO3 36.2 mmol/L (20.0-26.0) H 04/18/21 11:30 ABG O2 Saturation 98.0 % (95.0-99.0) 04/18/21 11:30 ABG O2 Content 12.1 (0.0-44) 04/18/21 11:30 POC ABG Base Excess 10.0 04/06/21 04:49 ABG Base Excess 11.2 mmol/L (-2.0-3.0) H 04/18/21 11:30 ABG Hemoglobin 8.8 gm/dl (14.0-18.0) L 04/18/21 11:30 ABG Oxyhemoglobin 87.5 (94-98) L 04/06/21 04:49 ABG Carboxyhemoglobin 1.7 % (0.0-5.0) 04/18/21 11:30 ABG Methemoglobin 0.5 % (0.0-1.5) 04/18/21 11:30 ABG Sodium 134.2 mmol/L (136.0-145.0) L 03/12/21 21:54 ABG Potassium 4.9 mmol/L (3.40-4.50) H 03/12/21 21:54 ABG Chloride 99.0 mmol/L (98-107) 03/12/21 21:54 ABG Glucose 306 mg/dL (65-95) H 03/12/21 21:54 Oxyhemoglobin 95.9 % (95.0-99.0) 04/18/21 11:30 Carboxyhemoglobin 0.8 (0.5-1.5) 04/06/21 04:49 FiO2 40 % 04/18/21 11:30 FiO2 % 40.0 04/06/21 04:49 Sodium 137 mmol/L (137-145) 04/19/21 04:26 Potassium 3.7 mmol/L (3.6-5.0) 04/19/21 04:26 Chloride 99.6 mmol/L (98-107) 04/19/21 04:26 Carbon Dioxide 30 mmol/L (22-30) 04/19/21 04:26 Anion Gap 11 mmol/L 04/19/21 04:26 BUN 20 mg/dL (9-20) 04/19/21 04:26 Creatinine 0.3 mg/dL (0.8-1.3) L 04/19/21 04:26 Estimated GFR > 60 ml/min 04/19/21 04:26 BUN/Creatinine Ratio 67 % 04/19/21 04:26 Glucose 163 mg/dL (75-100) H 04/19/21 04:26 POC Glucose 138 mg/dL (70-105) H 04/19/21 15:55 Lactic Acid 1.90 mmol/L (0.7-2.0) 03/08/21 23:51 Calcium 8.9 mg/dL (8.4-10.2) 04/19/21 04:26 Phosphorus 3.60 mg/dL (2.5-4.5) 04/17/21 04:25 Magnesium 2.30 mg/dL (1.7-2.3) 04/19/21 04:26 Ferritin 976.4 ng/mL (30.0-300.0) H 03/15/21 04:00 Total Bilirubin 0.20 mg/dL (0.1-1.2) 03/12/21 08:03 AST 10 units/L (5-40) 03/12/21 08:03 ALT 16 units/L (7-56) 03/12/21 08:03 Alkaline Phosphatase 77 units/L (35-129) 03/12/21 08:03 Lactate Dehydrogenase 630 units/L (91-180) H 03/15/21 06:06 C-Reactive Protein 0.40 mg/dL (0.00-1.30) 03/17/21 04:40 NT-Pro-B Natriuret Pep 1053 pg/mL (0-900) H 03/08/21 20:24 Total Protein 6.0 g/dL (6.3-8.2) L 03/12/21 08:03 Albumin 2.9 g/dL (3.9-5) L 03/12/21 08:03 Albumin/Globulin Ratio 0.9 % 03/12/21 08:03 Triglycerides 305 mg/dL (2-149) H 03/22/21 07:26 Procalcitonin 0.19 ng/mL (<0.15) 04/18/21 04:20 Arterial Blood Glucose 306 mg/dL (65-95) H 03/12/21 21:54 Arterial Blood Ionized Calcium 5.0 mg/dL (4.6-5.3) 03/12/21 21:54 Urine Color Yellow (Yellow) 04/14/21 Unknown Urine Turbidity Clear (Clear) 04/14/21 Unknown Urine pH 8.0 (5.0-7.0) H 04/14/21 Unknown Ur Specific [place] 1.009 (1.003-1.030) 04/14/21 Unknown Urine Protein <15 mg/dl mg/dL (Negative) 04/14/21 Unknown Urine Glucose (UA) Neg mg/dL (Negative) 04/14/21 Unknown Urine Ketones Neg mg/dL (Negative) 04/14/21 Unknown Urine Blood Neg (Negative) 04/14/21 Unknown Urine Nitrite Neg (Negative) 04/14/21 Unknown Urine Bilirubin Neg (Negative) 04/14/21 Unknown Urine Urobilinogen 2.0 mg/dL (<2.0) 04/14/21 Unknown Ur Leukocyte Esterase Neg (Negative) 04/14/21 Unknown Urine WBC (Auto) < 1.0 /HPF (0.0-6.0) 04/14/21 Unknown Urine RBC (Auto) < 1.0 /HPF (0.0-6.0) 04/14/21 Unknown Urine Bacteria (Auto) 1+ /HPF (Negative) 03/09/21 04:10 Urine Mucus Few /HPF 03/09/21 04:10 Vancomycin Trough 16.8 ug/mL (5.0-20.0) 04/16/21 14:30 Coronavirus (PCR) Positive (Negative) A 03/09/21 08:00 Miscellaneous Test Flexitest 1 03/16/21 13:14 Microbiology: Microbiology 04/14/21 08:17 Tracheal Aspirate Sputum Culture - Final Staphylococcus Aureus 04/15/21 13:55 Bronchial Washings - Right Middle Lobe Respiratory Culture - Final Staphylococcus Aureus 04/14/21 08:26 Peripheral/Venous Blood Culture - Final NO GROWTH AFTER 5 DAYS 04/14/21 08:26 Peripheral/Venous Blood Culture - Final NO GROWTH AFTER 5 DAYS Good/IV: Voiding Method Condom Catheter Active Medications - Current Medications Current Medications: Generic Name Dose Route Start Last Admin Trade Name Freq PRN Reason Stop Dose Admin Acetaminophen 650 mg 03/09/21 01:26 04/18/21 00:48 Acetaminophen 325 Mg Tab PO 650 mg Q4H PRN Administration Pain MILD(1-3)/Fever >100.5/RAYO Albuterol 2.5 mg 03/09/21 01:26 03/18/21 21:06 Albuterol 2.5 Mg/3 Ml Nebu IH 2.5 mg Q4HRT PRN Administration Shortness Of Breath Amlodipine Besylate 10 mg 04/11/21 10:00 04/19/21 11:10 Amlodipine 5 Mg Tab PO 10 mg QDAY BLANCA Administration Apixaban 5 mg 04/18/21 22:00 04/19/21 11:15 Apixaban 5 Mg Tab PO 5 mg Q12HR BLANCA Administration Protocol Arformoterol Tartrate 15 mcg 03/11/21 20:00 04/19/21 08:44 Arformoterol 15 Mcg/2 Ml Nebu IH 15 mcg Q12HRT BLANCA Administration Bisacodyl 10 mg 03/26/21 13:43 03/26/21 13:51 Bisacodyl 10 Mg Rect Supp LA 10 mg QDAY PRN Administration Constipation Budesonide 0.5 mg 04/06/21 20:00 04/19/21 08:44 Budesonide 0.5 Mg/2 Ml Nebu IH 0.5 mg Q12HRT BLANCA Administration Dextrose 0 ml 03/20/21 10:52 Dextrose 10% *Hypoglycemia IV PRN PRN Hypoglycemia Doxazosin Mesylate 1 mg 04/05/21 22:00 04/19/21 11:13 Doxazosin 1 Mg Tab PO 1 mg BID BLANCA Administration Famotidine 20 mg 03/12/21 22:00 04/19/21 11:16 Famotidine 20 Mg Tab FEEDTUBE 20 mg BID BLANCA Administration Fentanyl 50 mcg 04/14/21 11:00 04/14/21 21:37 Fentanyl 100 Mcg/2 Ml Inj IV 50 mcg Q2HR PRN Administration COPT greater than 3 Glycopyrrolate 1 mg 04/19/21 14:00 04/19/21 13:42 Glycopyrrolate 1 Mg Tab PO 1 mg TID BLANCA Administration Hydralazine HCl 50 mg 03/23/21 14:26 04/19/21 13:41 Hydralazine 25 Mg Tab PO 50 mg Q8HR BLANCA Administration Cefepime HCl 2 gm in 100 mls @ 200 mls/hr 04/14/21 15:00 04/19/21 13:29 Cefepime/Ns 2 Gm/100 Ml IV 04/22/21 06:29 200 mls/hr Q8HR BLANCA Administration Protocol Vancomycin HCl 1,750 mg/ 535 mls @ 333 mls/hr 04/15/21 15:00 04/19/21 02:52 Sodium Chloride IV 04/21/21 16:37 333 mls/hr Q12H BLANCA Administration Protocol Insulin Glargine 18 units 04/07/21 22:00 04/18/21 21:30 Insulin Glargine 100 Units/Ml SUB-Q 18 units QHS BLANCA Administration Insulin Human Lispro 0 unit 03/11/21 18:00 04/19/21 12:12 Insulin Lispro 100 Unit/Ml SUB-Q 3 unit Q6HR BLANCA Administration Protocol Metoprolol Tartrate 12.5 mg 03/21/21 22:00 04/19/21 11:16 Metoprolol Tartrate 25 Mg Tab PO 12.5 mg BID BLANCA Administration Ondansetron HCl 4 mg 03/09/21 01:26 04/13/21 16:17 Ondansetron 4 Mg/2 Ml Inj IV 4 mg Q8H PRN Administration Nausea And Vomiting Oxycodone HCl 5 mg 04/13/21 12:34 04/14/21 18:09 Oxycodone 5 Mg Tab PO 5 mg Q6HR PRN Administration Pain, Moderate (4-6) Phenyleph/Shark Oil/Min Oil/Petrol 1 applic 03/22/21 17:35 04/06/21 04:04 Pe/Mo/Pet,Wh 10 Applic/28 Gm Tube LA 1 applic Q6HR PRN Administration Hemorrhoids Polyethylene Glycol 17 gm 04/02/21 10:00 04/19/21 11:16 Polyethylene Glycol 3350 17 Gm Powder FEEDTUBE 17 gm QDAY BLANCA Administration Scopolamine 1 each 04/19/21 13:00 04/19/21 13:41 Scopolamine Transdermal Patch 72 Hr TD 1 each Q3D BLANCA Administration Senna/Docusate Sodium 2 tab 04/02/21 10:00 04/19/21 11:17 Sennosides/Docusate Sodium 8.6/50 Mg Tab FEEDTUBE 2 tab BID BLANCA Administration Sodium Chloride 10 ml 03/09/21 10:00 04/19/21 11:17 Sodium Chloride 0.9% 10 Ml Flush Syringe IV 10 ml BID BLANCA Administration Sodium Chloride 10 ml 03/09/21 01:26 04/10/21 21:07 Sodium Chloride 0.9% 10 Ml Flush Syringe IV 10 ml PRN PRN Administration LINE FLUSH Sodium Chloride 10 ml 03/20/21 09:48 Sodium Chloride 0.9% 50 Ml Ivpb IV PRN PRN FLUSH Nutrition/Malnutrition Assess - Dietary Evaluation Nutrition/Malnutrition Findings: Nutrition Notes Start: 03/09/21 08:49 Freq: Status: Active Protocol: Document 04/14/21 14:43 [facility] (Rec: 04/14/21 14:45 MNLEANN [id number]) Nutrition Notes Initial or Follow up Reassessment Current Diagnosis Diabetes,Sepsis,Hypertension, Respiratory Failure Other Pertinent Diagnosis COVID-19, Bilateral Pneumonia. Current Diet TF-Glucerna 1.2 at 70 ml/hr Labs/Tests reviewed Pertinent Medications reviewed Height 5 ft 11 in Weight 122.4 kg [place] Body Weight (kg) 78.18 BMI 37.6 Weight Status Obese Subjective/Other Information Pt remains on vent support. Spoke with RN via phone (14:18 ); pt continues to tolerate TF at goal rate. Percent of energy/protein needs met: 82% energy 78% pro Burn Absent Trauma Absent #1 Nutrition Diagnosis Inadequate oral intake Diagnosis Progress(for reassessment Continues documentation) Is patient on ventilator? Yes Is Patient Ambulatory and/or Out of Bed No REE-([place]-St. Jeor-confined to bed) [phone] Calculation Used for Recommendations 70-80% energy needs Additional Notes Energy needs: [phone] kcal/ day Pro needs 1.3g/kg adjBW: 130g/ day Fluid needs 1ml/kcal Nutrition Intervention Nutrition Support: Continue Glucerna 1.2 at 70ml/ hr with 110ml water flush q4h. Kcal 2,016 Protein (gm) 101 Carbohydrates (gm) 192 Fat (gm) 101 Fluid (mL) 1,352 Fiber (gm) 27 Goal #1 TF tolerance Goal #2 TF to meet at least 75% energy and pro needs Follow-Up By: 04/21/21 Additional Comments F/U: stable TF, vent status, wt
--- NOTE | 2021-04-19 17:47 | Progress Note ---
Assessment and Plan Cultures: SARS CoV2 PCR: positive 03/08/2021 blood culture: no growth 03/10/2021 sputum culture: Usual respiratory marlyn 03/16/2021 blood culture: In process 03/18/2021 sputum culture: Stenotrophomonas 04/15/21 sputum culture: MSSA A/P: 61-year-old male with diabetes, hypertension admitted to the hospital with complaints of shortness of breath and feeling weak for the last 1 week: #Sepsis secondary to bilateral pneumonia: secondary to COVID-19. Elevated inflammatory markers. WBC 22.6, creatinine 1.3, ferritin 877, CRP 18.0, LDH 624, procalcitonin 0.18. D-dimer >10k. CTA negative for pulmonary embolism, severe patchy groundglass opacities. #New fever: probably COVID related. #Acute hypoxic respiratory failure: initially required BiPAP, now intubated, on the vent. #DM #HTN Recs: -Completed Bactrim for Stenotrophomonas -Stopped vancomycin/cefepime -Started Ancef given MSSA in cultures. -completed IV remdesivir -s/p Actemra 03/10/2021 -prophylactic anticoagulation based on d-dimer per hospital protocol -s/p trach/PEG G. Joslyn Goins MD [facility] O: [phone] F: [phone] Subjective Date of service: 04/19/21 Principal diagnosis: COVID-19 infection; DM II; Bilateral pneumonia; Obesity; HTN Interval history: Afebrile, white count 13.6 which is slightly improved from yesterday. Respiratory cultures with MSSA. Objective - Exam Narrative Exam: Physical exam deferred to reduce risk of transmission of COVID-19. Please refer to primary team's note. - Constitutional Vitals: Vital Signs Temp Pulse Resp BP Pulse Ox 99.2 F 101 H 33 H 123/61 98 04/19/21 16:26 04/19/21 17:30 04/19/21 17:30 04/19/21 17:30 04/19/21 17:30 Temperature -Last 24 Hours Temperature 99.2 F Temperature 98.7 F Temperature 98.7 F Temperature 99.7 F Temperature 98.3 F Temperature 99.8 F Temperature 99.1 F - Labs CBC & Chem 7: 04/19/21 04:26 04/19/21 04:26 Labs: Abnormal lab results 04/18/21 04/19/21 04/19/21 Range/Units 23:26 04:26 04:26 WBC 13.6 H (4.5-11.0) K/mm3 RBC 2.69 L (3.65-5.03) M/mm3 Hgb 8.5 L (11.8-15.2) gm/dl Hct 24.4 L (35.5-45.6) % MCHC 35 H (32-34) % RDW 15.9 H (13.2-15.2) % Creatinine 0.3 L (0.8-1.3) mg/dL Glucose 163 H (75-100) mg/dL POC Glucose 137 H (70-105) mg/dL 04/19/21 04/19/21 04/19/21 Range/Units 05:16 11:01 15:55 WBC (4.5-11.0) K/mm3 RBC (3.65-5.03) M/mm3 Hgb (11.8-15.2) gm/dl Hct (35.5-45.6) % MCHC (32-34) % RDW (13.2-15.2) % Creatinine (0.8-1.3) mg/dL Glucose (75-100) mg/dL POC Glucose 154 H 164 H 138 H (70-105) mg/dL
[2021-04-19] MEDS: INSULIN GLARGINE 100 UNITS/ML SUB-Q SCH (21:04)
[2021-04-20] MEDS: INSULIN LISPRO 100 UNIT/ML SUB-Q SCH ×4 (00:09→18:04)
[2021-04-20 05:05] LABS: Hematocrit 26.8 % (35.5-45.6); Hemoglobin 8.8 gm/dl (11.8-15.2); Mean Corpuscular HGB Conc 33 % (32-34); Mean Corpuscular Volume 91 fl (84-94); Platelet Count 403 K/mm3 (140-440); Red Blood Count 2.94 M/mm3 (3.65-5.03); Red Cell Distribution Width 16.2 % (13.2-15.2)
[2021-04-20 05:20] LABS: Blood Urea Nitrogen 17 mg/dL (9-20); Calcium 8.3 mg/dL (8.4-10.2); Hemolysis Index 1
[2021-04-20 05:25] LABS: BUN/Creatinine Ratio 57
[2021-04-20] MEDS: hydrALAZINE 25 MG TAB PO SCH ×3 (05:36→21:03)
[2021-04-20] MEDS: ARFORMOTEROL 15 MCG/2 ML NEBU IH SCH (08:55)
[2021-04-20] MEDS: BUDESONIDE 0.5 MG/2 ML NEBU IH SCH (08:55)
[2021-04-20] MEDS: POLYETHYLENE GLYCOL 3350 17 GM POWDER FEEDTUBE SCH (10:26)
[2021-04-20] MEDS: METOPROLOL TARTRATE 25 MG TAB PO SCH ×2 (10:26→21:02)
[2021-04-20] MEDS: SENNOSIDES/DOCUSATE SODIUM 8.6/50 MG TAB FEEDTUBE SCH (10:26)
[2021-04-20] MEDS: APIXABAN 5 MG TAB PO SCH ×2 (10:26→21:03)
[2021-04-20] MEDS: GLYCOPYRROLATE 1 MG TAB PO SCH ×3 (10:26→19:45)
[2021-04-20] MEDS: FAMOTIDINE 20 MG TAB FEEDTUBE SCH ×2 (10:26→21:02)
[2021-04-20] MEDS: amLODIPine 5 MG TAB PO SCH (10:27)
[2021-04-20] MEDS: DOXAZOSIN 1 MG TAB PO SCH ×2 (10:28→21:02)
--- NOTE | 2021-04-20 11:06 | Progress Note ---
Assessment and Plan Cultures: SARS CoV2 PCR: positive 03/08/2021 blood culture: no growth 03/10/2021 sputum culture: Usual respiratory mralyn 03/16/2021 blood culture: no growth 03/18/2021 sputum culture: Stenotrophomonas 03/31/2021 Blood culture: no growth 03/31/2021 tracheal aspirate: usual resp marlyn 04/14/2021 sputum culture: MSSA 04/14/2021 blood culture: No growth 04/14/2021 urine culture: No growth 04/15/2021 right middle lobe respiratory culture: MSSA A/P: 61-year-old male with diabetes, hypertension admitted to the hospital with complaints of shortness of breath and feeling weak for the last 1 week: #Sepsis secondary to bilateral pneumonia: secondary to COVID-19. Completed remdesivir, s/p Actemra, steroids. Completed abx for bacterial pneumonia, Stenotrophomonas. #MSSA pneumonia #Acute hypoxic respiratory failure: s/p trach and PEG. #DM #HTN #Acute DVT in RUE Recs: -Considering morbid obesity and weight greater than 120 kg, cefazolin dose increased to 3 g q8 hrs Sangita Nicole MD, FACP, [facility] O: [phone] F: [phone] Subjective Date of service: 04/20/21 Principal diagnosis: COVID-19 infection; DM II; Bilateral pneumonia; Obesity; HTN Interval history: Awake, alert, on T-piece via trach. Low-grade temperatures present Objective - Exam Narrative Exam: Physical Exam Constitutional: awake, on T-piece Head, Ears, Nose: Normocephalic, atraumatic. External ears, nose normal Eyes: Conjunctivae/corneas clear. No icterus. Neck: trach + Cardiovascular: S1, S2 + Respiratory: AE fair GI: Soft, bowel sounds +, PEG + Musculoskeletal: edema + Skin: No rash or abscess Hem/Lymphatic: No palpable cervical or supraclavicular nodes. No lymphangitis Psych: no agitation Neurological: awake, responsive, limited eval due to trach - Constitutional Vitals: Vital Signs Temp Pulse Resp BP Pulse Ox 100 F H 98 H 37 H 138/73 99 04/20/21 08:00 04/20/21 10:28 04/20/21 09:00 04/20/21 10:28 04/20/21 09:00 Temperature -Last 24 Hours Temperature 100 F Temperature 100.0 F Temperature 98.9 F Temperature 100.7 F Temperature 99.1 F Temperature 99.2 F Temperature 98.7 F Temperature 98.7 F - Labs CBC & Chem 7: 04/20/21 04:17 04/20/21 04:17 Labs: Abnormal lab results 04/19/21 04/19/21 04/19/21 Range/Units 11:01 15:55 21:00 WBC (4.5-11.0) K/mm3 RBC (3.65-5.03) M/mm3 Hgb (11.8-15.2) gm/dl Hct (35.5-45.6) % RDW (13.2-15.2) % Sodium (137-145) mmol/L Creatinine (0.8-1.3) mg/dL Glucose (75-100) mg/dL POC Glucose 164 H 138 H 151 H (70-105) mg/dL Calcium (8.4-10.2) mg/dL 04/19/21 04/20/21 04/20/21 Range/Units 23:13 04:17 04:17 WBC 13.1 H (4.5-11.0) K/mm3 RBC 2.94 L (3.65-5.03) M/mm3 Hgb 8.8 L (11.8-15.2) gm/dl Hct 26.8 L (35.5-45.6) % RDW 16.2 H (13.2-15.2) % Sodium 135 L (137-145) mmol/L Creatinine 0.3 L (0.8-1.3) mg/dL Glucose 151 H (75-100) mg/dL POC Glucose 147 H (70-105) mg/dL Calcium 8.3 L (8.4-10.2) mg/dL 04/20/21 Range/Units 05:15 WBC (4.5-11.0) K/mm3 RBC (3.65-5.03) M/mm3 Hgb (11.8-15.2) gm/dl Hct (35.5-45.6) % RDW (13.2-15.2) % Sodium (137-145) mmol/L Creatinine (0.8-1.3) mg/dL Glucose (75-100) mg/dL POC Glucose 126 H (70-105) mg/dL Calcium (8.4-10.2) mg/dL
[2021-04-20] MEDS: oxyCODONE 5 MG TAB PO PRN (12:47)
--- NOTE | 2021-04-20 13:36 | Progress Note ---
Assessment and Plan Acute hypoxemic respiratory failure, on continuous noninvasive ventilation COVID-19 infection Bilateral pneumonia History of diabetes Obesity Hypertension Leukocytosis Possible venous thromboembolic phenomena with significantly elevated D-dimers DM II Elevated serum inflammatory markers to include CRP levels, ferritin and LDH - advance t-piece trials as tolerated; shoot for RTC t-piece at this point - discontinue Senokot - resume Lasix 40 mg IV daily and follow electrolytes - ABG at 9am tomorrow if still on T-piece - continue LTAC evaluation - continue care as below otherwise; - continue Daily SAT and SBT assessment as tolerated - continue to wean supplemental oxygen for target O2 sat's > 90% acutely - VAP bundle addressed - continue lung protective strategies - continue bronchodilators with routiune trach care and pulmonary hygiene per RT - wean per pulmonary driven protocols otherwise - continue accuchecks with glycemic control per SSI (While critically ill target blood glucose of 140-180 mg/dL; avoid hypoglycemia) - sedation prn for target RASS 0 to -1 - avoid nephrotoxins, renally dose all medications - avoid benzodiazepine's, reduce the possibility of delirium - AB's per ID rec's - prn analgesia per pain score - Maintenance of sleep-wake cycle, avoid delirium - G.I. & VTE prophylaxis - PT/OT/ROM exercises - mobility protocols for pressure ulcer prophylaxis - Monitor hemodynamics closely - continue other care per attending / other consultants - discharge planning ongoing concurrently COVID SPECIFIC INTERVENTIONS - Remdesivir as per ID/Pulmonary developed protocols (received) - continue systemic steroids for severe COVID-19 infection empirically (Deca dron) - follow repeat COVID tests results - zinc and vitamin C supplementation - Monitor inflammatory markers per facility protocol - ferritin, Ddimer, CRP - therapeutic anticoagulation per system Protocol based on d-dimer and clinical considerations (treatment dose) - contact and airborne isolation discontinued .... Re-evaluate in am & prn CONDITION: CRITICAL PROGNOSIS: GUARDED CODE STATUS: FULL CODE The high probability of a clinically significant, sudden or life-threatening deterioration of the [respiratory, cardiovascular & hematologic] system(s) required my full and direct attention, intervention and personal management. The aggregate critical care time was [32] minutes without overlap. Time includes spent on; [x] Data Review and interpretation [x] Patient assessment and monitoring of vital signs [x] Documentation [x] Medication orders and management Subjective Date of service: 04/20/21 Principal diagnosis: COVID-19 infection; DM II; Bilateral pneumonia; Obesity; HTN Interval history: Patient is seen today for: Acute hypoxemic respiratory failure; COVID-19 infection; DM II; Bilateral pneumonia; Obesity; HTN Seen and examined at bedside; 24hour events reviewed; nursing and respiratory care staff consulted; no adverse overnight events reported to me; resting in bed; rested on MVS; on t-piece now and tolerating well; more alert and appropriate today; developed loose stools; No N/V/F/C Objective Vital Signs - 12hr 04/20/21 04/20/21 04/20/21 02:00 02:31 03:00 Temperature Pulse Rate 94 H 92 H 95 H Pulse Rate [ Bilateral Throughout] Pulse Rate [ From Monitor] Respiratory 21 31 H 22 Rate Respiratory Rate [Bilateral Throughout] Blood Pressure 121/65 121/65 112/70 O2 Sat by Pulse 98 99 98 Oximetry O2 Sat by Pulse Oximetry [ Assessment] 04/20/21 04/20/21 04/20/21 03:31 04:00 04:01 Temperature 98.9 F Pulse Rate 90 90 91 H Pulse Rate [ Bilateral Throughout] Pulse Rate [ 91 H From Monitor] Respiratory 29 H 32 H Rate Respiratory Rate [Bilateral Throughout] Blood Pressure 112/70 105/72 105/72 O2 Sat by Pulse 99 99 100 Oximetry O2 Sat by Pulse Oximetry [ Assessment] 04/20/21 04/20/21 04/20/21 04:31 05:00 05:31 Temperature Pulse Rate 90 89 89 Pulse Rate [ Bilateral Throughout] Pulse Rate [ From Monitor] Respiratory 31 H 33 H 28 H Rate Respiratory Rate [Bilateral Throughout] Blood Pressure 105/72 114/72 114/72 O2 Sat by Pulse 98 98 99 Oximetry O2 Sat by Pulse Oximetry [ Assessment] 04/20/21 04/20/21 04/20/21 05:36 06:00 06:31 Temperature Pulse Rate 88 89 92 H Pulse Rate [ Bilateral Throughout] Pulse Rate [ From Monitor] Respiratory 29 H 30 H Rate Respiratory Rate [Bilateral Throughout] Blood Pressure 114/72 124/74 124/74 O2 Sat by Pulse 100 99 Oximetry O2 Sat by Pulse Oximetry [ Assessment] 04/20/21 04/20/21 04/20/21 07:00 07:15 07:31 Temperature 100.0 F H Pulse Rate 90 92 H Pulse Rate [ Bilateral Throughout] Pulse Rate [ From Monitor] Respiratory 30 H 30 H Rate Respiratory Rate [Bilateral Throughout] Blood Pressure 130/75 130/75 O2 Sat by Pulse 99 99 Oximetry O2 Sat by Pulse Oximetry [ Assessment] 04/20/21 04/20/21 04/20/21 07:45 07:50 08:00 Temperature 100 F H Pulse Rate 91 H 93 H Pulse Rate [ Bilateral Throughout] Pulse Rate [ 94 H From Monitor] Respiratory 24 Rate Respiratory Rate [Bilateral Throughout] Blood Pressure 133/71 O2 Sat by Pulse 100 100 98 Oximetry O2 Sat by Pulse Oximetry [ Assessment] 04/20/21 04/20/21 04/20/21 08:01 08:31 08:55 Temperature Pulse Rate 92 H 94 H Pulse Rate [ 91 H Bilateral Throughout] Pulse Rate [ From Monitor] Respiratory 27 H 30 H Rate Respiratory 29 H Rate [Bilateral Throughout] Blood Pressure 133/71 133/71 O2 Sat by Pulse 99 100 Oximetry O2 Sat by Pulse 100 Oximetry [ Assessment] 04/20/21 04/20/21 04/20/21 09:00 09:31 10:00 Temperature Pulse Rate 94 H 100 H 94 H Pulse Rate [ Bilateral Throughout] Pulse Rate [ From Monitor] Respiratory 37 H 36 H Rate Respiratory Rate [Bilateral Throughout] Blood Pressure 136/76 136/76 O2 Sat by Pulse 99 99 Oximetry O2 Sat by Pulse Oximetry [ Assessment] 04/20/21 04/20/21 04/20/21 10:01 10:26 10:27 Temperature Pulse Rate 98 H 98 H 98 H Pulse Rate [ Bilateral Throughout] Pulse Rate [ From Monitor] Respiratory 33 H Rate Respiratory Rate [Bilateral Throughout] Blood Pressure 138/73 138/73 138/73 O2 Sat by Pulse 98 Oximetry O2 Sat by Pulse Oximetry [ Assessment] 04/20/21 04/20/21 04/20/21 10:28 10:31 11:01 Temperature Pulse Rate 98 H 98 H 94 H Pulse Rate [ Bilateral Throughout] Pulse Rate [ From Monitor] Respiratory 29 H 30 H Rate Respiratory Rate [Bilateral Throughout] Blood Pressure 138/73 138/73 131/77 O2 Sat by Pulse 99 99 Oximetry O2 Sat by Pulse Oximetry [ Assessment] 04/20/21 11:33 Temperature 98.8 F Pulse Rate Pulse Rate [ Bilateral Throughout] Pulse Rate [ From Monitor] Respiratory Rate Respiratory Rate [Bilateral Throughout] Blood Pressure O2 Sat by Pulse Oximetry O2 Sat by Pulse Oximetry [ Assessment] Constitutional: no acute distress, other (elderly obese male with mildly increased respiratory effort at rest) Eyes: non-icteric, other ENT: oropharynx moist, other (+ midline tracheostomy) Neck: supple, no lymphadenopathy, lymphadenopathy, no JVD, other (large circumference) Effort: mildly labored Ascultation: Bilateral: diminished breath sounds, rhonchi Percussion: Bilateral: not dull Cardiovascular: regular rate and rhythm, other (tachycardia, S1,S2) Gastrointestinal: normoactive bowel sounds, soft, non-tender, non-distended (protuberant), other (Good in place) Integumentary: normal Extremities: no cyanosis, pulses normal, no ischemia or petechiae, edema (upper extremities), other Neurologic: non-focal exam (grossly), pupils equal and round, CN II-XII normal, other (follows simple prompts) Psychiatric: other (flat affect) CBC and BMP: 04/20/21 04:17 04/21/21 10:24 ABG, PT/INR, D-dimer: ABG ABG pH 7.469 pH Units (7.350-7.450) H 04/18/21 11:30 POC ABG pCO2 57.4 mmHg (32.0-48.0) H 04/06/21 04:49 ABG pCO2 50.9 mm Hg 04/18/21 11:30 POC ABG pO2 55.1 mmHg (83-108) L 04/06/21 04:49 ABG pO2 108.9 mm Hg (80.0-90.0) H 04/18/21 11:30 POC ABG HCO3 36.2 04/06/21 04:49 ABG O2 Saturation 98.0 % (95.0-99.0) 04/18/21 11:30 PT/INR, D-dimer PT 13.4 Sec. (12.2-14.9) 04/11/21 18:17 INR 0.92 (0.87-1.13) 04/11/21 18:17 D-Dimer 1359.12 ng/mlDDU (0-234) H 03/17/21 04:40 Abnormal lab findings: Abnormal Labs 03/08/21 03/08/21 03/08/21 20:24 20:24 20:24 WBC 22.6 H RBC 5.44 H Hgb 15.7 H Hct 49.2 H MCV MCHC RDW Plt Count Lymph % (Auto) [place] % (Auto) Lymph # (Auto) [place] # (Auto) Seg Neutrophils % Seg Neuts % (Manual) 83.0 H Lymphocytes % (Manual) 9.0 L Monocytes % (Manual) 8.0 H Nucleated RBC % Seg Neutrophils # Seg Neutrophils # Man 18.8 H Lymphocytes # (Manual) Monocytes # (Manual) 1.8 H PT 16.1 H INR 1.17 H APTT D-Dimer > 85596 H Heparin Anti-Xa Level ABG pH POC ABG pCO2 POC ABG pO2 ABG pO2 ABG HCO3 ABG O2 Saturation ABG Base Excess ABG Hemoglobin ABG Oxyhemoglobin ABG Sodium ABG Potassium ABG Glucose Oxyhemoglobin Sodium 136 L Potassium Chloride 93.9 L Carbon Dioxide BUN 29 H Creatinine Glucose 208 H POC Glucose Lactic Acid Calcium Phosphorus Magnesium Ferritin Lactate Dehydrogenase 624 H C-Reactive Protein 18.00 H NT-Pro-B Natriuret Pep 1053 H Total Protein Albumin Triglycerides Arterial Blood Glucose Urine pH Ur Specific [place] Coronavirus (PCR) 03/08/21 03/08/21 03/09/21 20:24 20:24 04:10 WBC RBC Hgb Hct MCV MCHC RDW Plt Count Lymph % (Auto) [place] % (Auto) Lymph # (Auto) [place] # (Auto) Seg Neutrophils % Seg Neuts % (Manual) Lymphocytes % (Manual) Monocytes % (Manual) Nucleated RBC % Seg Neutrophils # Seg Neutrophils # Man Lymphocytes # (Manual) Monocytes # (Manual) PT INR APTT D-Dimer Heparin Anti-Xa Level ABG pH POC ABG pCO2 POC ABG pO2 ABG pO2 ABG HCO3 ABG O2 Saturation ABG Base Excess ABG Hemoglobin ABG Oxyhemoglobin ABG Sodium ABG Potassium ABG Glucose Oxyhemoglobin Sodium Potassium Chloride Carbon Dioxide BUN Creatinine Glucose POC Glucose Lactic Acid 2.10 H* Calcium Phosphorus Magnesium Ferritin 877.5 H Lactate Dehydrogenase C-Reactive Protein NT-Pro-B Natriuret Pep Total Protein Albumin Triglycerides Arterial Blood Glucose Urine pH Ur Specific [place] 1.041 H Coronavirus (PCR) 03/09/21 03/09/21 03/09/21 07:46 08:00 13:01 WBC RBC Hgb Hct MCV MCHC RDW Plt Count Lymph % (Auto) [place] % (Auto) Lymph # (Auto) [place] # (Auto) Seg Neutrophils % Seg Neuts % (Manual) Lymphocytes % (Manual) Monocytes % (Manual) Nucleated RBC % Seg Neutrophils # Seg Neutrophils # Man Lymphocytes # (Manual) Monocytes # (Manual) PT INR APTT D-Dimer Heparin Anti-Xa Level ABG pH POC ABG pCO2 POC ABG pO2 ABG pO2 ABG HCO3 ABG O2 Saturation ABG Base Excess ABG Hemoglobin ABG Oxyhemoglobin ABG Sodium ABG Potassium ABG Glucose Oxyhemoglobin Sodium Potassium Chloride Carbon Dioxide BUN Creatinine Glucose POC Glucose 191 H 182 H Lactic Acid Calcium Phosphorus Magnesium Ferritin Lactate Dehydrogenase C-Reactive Protein NT-Pro-B Natriuret Pep Total Protein Albumin Triglycerides Arterial Blood Glucose Urine pH Ur Specific [place] Coronavirus (PCR) Positive A 03/09/21 03/09/21 03/09/21 15:19 17:48 18:10 WBC RBC Hgb Hct MCV MCHC RDW Plt Count Lymph % (Auto) [place] % (Auto) Lymph # (Auto) [place] # (Auto) Seg Neutrophils % Seg Neuts % (Manual) Lymphocytes % (Manual) Monocytes % (Manual) Nucleated RBC % Seg Neutrophils # Seg Neutrophils # Man Lymphocytes # (Manual) Monocytes # (Manual) PT INR APTT D-Dimer Heparin Anti-Xa Level ABG pH POC ABG pCO2 POC ABG pO2 ABG pO2 47.3 L ABG HCO3 26.3 H ABG O2 Saturation 83.7 L ABG Base Excess ABG Hemoglobin ABG Oxyhemoglobin ABG Sodium ABG Potassium ABG Glucose Oxyhemoglobin 82.1 L Sodium Potassium Chloride Carbon Dioxide BUN 29 H Creatinine Glucose 214 H POC Glucose 194 H Lactic Acid Calcium Phosphorus Magnesium Ferritin Lactate Dehydrogenase C-Reactive Protein NT-Pro-B Natriuret Pep Total Protein Albumin 3.4 L Triglycerides Arterial Blood Glucose Urine pH Ur Specific [place] Coronavirus (PCR) 03/09/21 03/10/21 03/10/21 20:40 04:29 04:29 WBC 20.6 H RBC 5.07 H Hgb Hct 46.2 H MCV MCHC RDW Plt Count Lymph % (Auto) [place] % (Auto) Lymph # (Auto) [place] # (Auto) Seg Neutrophils % Seg Neuts % (Manual) 94.0 H Lymphocytes % (Manual) 1.0 L Monocytes % (Manual) Nucleated RBC % 3.0 H Seg Neutrophils # Seg Neutrophils # Man 19.4 H Lymphocytes # (Manual) 0.2 L Monocytes # (Manual) 1.0 H PT INR APTT D-Dimer Heparin Anti-Xa Level ABG pH POC ABG pCO2 POC ABG pO2 ABG pO2 ABG HCO3 ABG O2 Saturation ABG Base Excess ABG Hemoglobin ABG Oxyhemoglobin ABG Sodium ABG Potassium ABG Glucose Oxyhemoglobin Sodium Potassium Chloride Carbon Dioxide BUN 29 H Creatinine Glucose 188 H POC Glucose 176 H Lactic Acid Calcium Phosphorus Magnesium Ferritin Lactate Dehydrogenase C-Reactive Protein NT-Pro-B Natriuret Pep Total Protein Albumin 3.3 L Triglycerides Arterial Blood Glucose Urine pH Ur Specific [place] Coronavirus (PCR) 03/10/21 03/10/21 03/10/21 05:22 10:27 15:25 WBC RBC Hgb Hct MCV MCHC RDW Plt Count Lymph % (Auto) [place] % (Auto) Lymph # (Auto) [place] # (Auto) Seg Neutrophils % Seg Neuts % (Manual) Lymphocytes % (Manual) Monocytes % (Manual) Nucleated RBC % Seg Neutrophils # Seg Neutrophils # Man Lymphocytes # (Manual) Monocytes # (Manual) PT INR APTT D-Dimer Heparin Anti-Xa Level ABG pH 7.488 H 7.488 H POC ABG pCO2 POC ABG pO2 ABG pO2 47.7 L 50.5 L ABG HCO3 ABG O2 Saturation 86.2 L 87.9 L ABG Base Excess ABG Hemoglobin ABG Oxyhemoglobin ABG Sodium ABG Potassium ABG Glucose Oxyhemoglobin 84.6 L 86.2 L Sodium Potassium Chloride Carbon Dioxide BUN Creatinine Glucose POC Glucose 155 H Lactic Acid Calcium Phosphorus Magnesium Ferritin Lactate Dehydrogenase C-Reactive Protein NT-Pro-B Natriuret Pep Total Protein Albumin Triglycerides Arterial Blood Glucose Urine pH Ur Specific [place] Coronavirus (PCR) 03/10/21 03/10/21 03/11/21 18:10 18:55 00:07 WBC RBC Hgb Hct MCV MCHC RDW Plt Count Lymph % (Auto) [place] % (Auto) Lymph # (Auto) [place] # (Auto) Seg Neutrophils % Seg Neuts % (Manual) Lymphocytes % (Manual) Monocytes % (Manual) Nucleated RBC % Seg Neutrophils # Seg Neutrophils # Man Lymphocytes # (Manual) Monocytes # (Manual) PT INR APTT D-Dimer Heparin Anti-Xa Level ABG pH 7.343 L POC ABG pCO2 POC ABG pO2 ABG pO2 60.4 L ABG HCO3 27.9 H ABG O2 Saturation 88.7 L ABG Base Excess ABG Hemoglobin ABG Oxyhemoglobin ABG Sodium ABG Potassium ABG Glucose Oxyhemoglobin 86.9 L Sodium Potassium Chloride Carbon Dioxide BUN Creatinine Glucose POC Glucose 187 H 139 H Lactic Acid Calcium Phosphorus Magnesium Ferritin Lactate Dehydrogenase C-Reactive Protein NT-Pro-B Natriuret Pep Total Protein Albumin Triglycerides Arterial Blood Glucose Urine pH Ur Specific [place] Coronavirus (PCR) 03/11/21 03/11/21 03/11/21 02:09 04:28 08:06 WBC RBC Hgb Hct MCV MCHC RDW Plt Count Lymph % (Auto) [place] % (Auto) Lymph # (Auto) [place] # (Auto) Seg Neutrophils % Seg Neuts % (Manual) Lymphocytes % (Manual) Monocytes % (Manual) Nucleated RBC % Seg Neutrophils # Seg Neutrophils # Man Lymphocytes # (Manual) Monocytes # (Manual) PT INR APTT D-Dimer Heparin Anti-Xa Level ABG pH 7.277 L POC ABG pCO2 55.9 H POC ABG pO2 54.4 L ABG pO2 ABG HCO3 ABG O2 Saturation ABG Base Excess ABG Hemoglobin ABG Oxyhemoglobin 83.0 L ABG Sodium ABG Potassium 4.8 H ABG Glucose 180 H Oxyhemoglobin Sodium Potassium Chloride Carbon Dioxide BUN 38 H Creatinine Glucose 249 H POC Glucose 278 H Lactic Acid Calcium Phosphorus Magnesium Ferritin Lactate Dehydrogenase C-Reactive Protein NT-Pro-B Natriuret Pep Total Protein Albumin 3.2 L Triglycerides Arterial Blood Glucose 180 H Urine pH Ur Specific [place] Coronavirus (PCR) 03/11/21 03/11/21 03/11/21 11:29 15:06 15:48 WBC RBC Hgb Hct MCV MCHC RDW Plt Count Lymph % (Auto) [place] % (Auto) Lymph # (Auto) [place] # (Auto) Seg Neutrophils % Seg Neuts % (Manual) Lymphocytes % (Manual) Monocytes % (Manual) Nucleated RBC % Seg Neutrophils # Seg Neutrophils # Man Lymphocytes # (Manual) Monocytes # (Manual) PT INR APTT D-Dimer Heparin Anti-Xa Level ABG pH 7.260 L POC ABG pCO2 POC ABG pO2 ABG pO2 53.5 L ABG HCO3 29.5 H ABG O2 Saturation 84.0 L ABG Base Excess ABG Hemoglobin ABG Oxyhemoglobin ABG Sodium ABG Potassium ABG Glucose Oxyhemoglobin 82.3 L Sodium Potassium Chloride Carbon Dioxide BUN Creatinine Glucose POC Glucose 288 H 295 H Lactic Acid Calcium Phosphorus Magnesium Ferritin Lactate Dehydrogenase C-Reactive Protein NT-Pro-B Natriuret Pep Total Protein Albumin Triglycerides Arterial Blood Glucose Urine pH Ur Specific [place] Coronavirus (PCR) 03/12/21 03/12/21 03/12/21 00:01 05:24 08:03 WBC RBC Hgb Hct MCV MCHC RDW Plt Count Lymph % (Auto) [place] % (Auto) Lymph # (Auto) [place] # (Auto) Seg Neutrophils % Seg Neuts % (Manual) Lymphocytes % (Manual) Monocytes % (Manual) Nucleated RBC % Seg Neutrophils # Seg Neutrophils # Man Lymphocytes # (Manual) Monocytes # (Manual) PT INR APTT D-Dimer Heparin Anti-Xa Level ABG pH POC ABG pCO2 POC ABG pO2 ABG pO2 ABG HCO3 ABG O2 Saturation ABG Base Excess ABG Hemoglobin ABG Oxyhemoglobin ABG Sodium ABG Potassium ABG Glucose Oxyhemoglobin Sodium 135 L Potassium Chloride Carbon Dioxide BUN 48 H Creatinine Glucose 358 H POC Glucose 304 H 310 H Lactic Acid Calcium Phosphorus Magnesium Ferritin Lactate Dehydrogenase C-Reactive Protein NT-Pro-B Natriuret Pep Total Protein 6.0 L Albumin 2.9 L Triglycerides Arterial Blood Glucose Urine pH Ur Specific [place] Coronavirus (PCR) 03/12/21 03/12/21 03/12/21 08:03 10:43 11:31 WBC 14.6 H RBC Hgb Hct MCV MCHC RDW Plt Count Lymph % (Auto) [place] % (Auto) Lymph # (Auto) [place] # (Auto) Seg Neutrophils % Seg Neuts % (Manual) Lymphocytes % (Manual) Monocytes % (Manual) Nucleated RBC % Seg Neutrophils # Seg Neutrophils # Man Lymphocytes # (Manual) Monocytes # (Manual) PT INR APTT D-Dimer Heparin Anti-Xa Level ABG pH 7.248 L POC ABG pCO2 POC ABG pO2 ABG pO2 73.7 L ABG HCO3 32.0 H ABG O2 Saturation 93.9 L ABG Base Excess ABG Hemoglobin ABG Oxyhemoglobin ABG Sodium ABG Potassium ABG Glucose Oxyhemoglobin 92.1 L Sodium Potassium Chloride Carbon Dioxide BUN Creatinine Glucose POC Glucose 359 H Lactic Acid Calcium Phosphorus Magnesium Ferritin Lactate Dehydrogenase C-Reactive Protein NT-Pro-B Natriuret Pep Total Protein Albumin Triglycerides Arterial Blood Glucose Urine pH Ur Specific [place] Coronavirus (PCR) 03/12/21 03/12/21 03/13/21 17:20 21:54 00:02 WBC RBC Hgb Hct MCV MCHC RDW Plt Count Lymph % (Auto) [place] % (Auto) Lymph # (Auto) [place] # (Auto) Seg Neutrophils % Seg Neuts % (Manual) Lymphocytes % (Manual) Monocytes % (Manual) Nucleated RBC % Seg Neutrophils # Seg Neutrophils # Man Lymphocytes # (Manual) Monocytes # (Manual) PT INR APTT D-Dimer Heparin Anti-Xa Level ABG pH 7.238 L POC ABG pCO2 71.9 H POC ABG pO2 53.6 L ABG pO2 ABG HCO3 ABG O2 Saturation ABG Base Excess ABG Hemoglobin ABG Oxyhemoglobin 84.8 L ABG Sodium 134.2 L ABG Potassium 4.9 H ABG Glucose 306 H Oxyhemoglobin Sodium Potassium Chloride Carbon Dioxide BUN Creatinine Glucose POC Glucose 374 H 308 H Lactic Acid Calcium Phosphorus Magnesium Ferritin Lactate Dehydrogenase C-Reactive Protein NT-Pro-B Natriuret Pep Total Protein Albumin Triglycerides Arterial Blood Glucose 306 H Urine pH Ur Specific [place] Coronavirus (PCR) 03/13/21 03/13/21 03/13/21 05:22 05:44 05:44 WBC 13.9 H RBC Hgb Hct MCV MCHC RDW Plt Count Lymph % (Auto) [place] % (Auto) Lymph # (Auto) [place] # (Auto) Seg Neutrophils % Seg Neuts % (Manual) Lymphocytes % (Manual) Monocytes % (Manual) Nucleated RBC % Seg Neutrophils # Seg Neutrophils # Man Lymphocytes # (Manual) Monocytes # (Manual) PT INR APTT D-Dimer 3567.97 H Heparin Anti-Xa Level ABG pH POC ABG pCO2 POC ABG pO2 ABG pO2 ABG HCO3 ABG O2 Saturation ABG Base Excess ABG Hemoglobin ABG Oxyhemoglobin ABG Sodium ABG Potassium ABG Glucose Oxyhemoglobin Sodium Potassium Chloride Carbon Dioxide BUN Creatinine Glucose POC Glucose 316 H Lactic Acid Calcium Phosphorus Magnesium Ferritin Lactate Dehydrogenase C-Reactive Protein NT-Pro-B Natriuret Pep Total Protein Albumin Triglycerides Arterial Blood Glucose Urine pH Ur Specific [place] Coronavirus (PCR) 03/13/21 03/13/21 03/13/21 05:44 05:44 11:15 WBC RBC Hgb Hct MCV MCHC RDW Plt Count Lymph % (Auto) [place] % (Auto) Lymph # (Auto) [place] # (Auto) Seg Neutrophils % Seg Neuts % (Manual) Lymphocytes % (Manual) Monocytes % (Manual) Nucleated RBC % Seg Neutrophils # Seg Neutrophils # Man Lymphocytes # (Manual) Monocytes # (Manual) PT INR APTT D-Dimer Heparin Anti-Xa Level ABG pH 7.310 L POC ABG pCO2 POC ABG pO2 ABG pO2 52.3 L ABG HCO3 34.1 H ABG O2 Saturation 86.8 L ABG Base Excess 5.5 H ABG Hemoglobin 13.8 L ABG Oxyhemoglobin ABG Sodium ABG Potassium ABG Glucose Oxyhemoglobin 85.1 L Sodium Potassium Chloride Carbon Dioxide BUN Creatinine Glucose POC Glucose Lactic Acid Calcium Phosphorus Magnesium Ferritin 858.7 H Lactate Dehydrogenase 348 H C-Reactive Protein 2.80 H NT-Pro-B Natriuret Pep Total Protein Albumin Triglycerides Arterial Blood Glucose Urine pH Ur Specific [place] Coronavirus (PCR) 03/13/21 03/13/21 03/13/21 11:21 15:47 19:23 WBC RBC Hgb Hct MCV MCHC RDW Plt Count Lymph % (Auto) [place] % (Auto) Lymph # (Auto) [place] # (Auto) Seg Neutrophils % Seg Neuts % (Manual) Lymphocytes % (Manual) Monocytes % (Manual) Nucleated RBC % Seg Neutrophils # Seg Neutrophils # Man Lymphocytes # (Manual) Monocytes # (Manual) PT INR APTT D-Dimer Heparin Anti-Xa Level ABG pH POC ABG pCO2 POC ABG pO2 ABG pO2 ABG HCO3 ABG O2 Saturation ABG Base Excess ABG Hemoglobin ABG Oxyhemoglobin ABG Sodium ABG Potassium ABG Glucose Oxyhemoglobin Sodium 136 L Potassium 5.9 H Chloride Carbon Dioxide BUN 50 H Creatinine Glucose 397 H POC Glucose 322 H 317 H Lactic Acid Calcium Phosphorus Magnesium Ferritin Lactate Dehydrogenase C-Reactive Protein NT-Pro-B Natriuret Pep Total Protein Albumin Triglycerides Arterial Blood Glucose Urine pH Ur Specific [place] Coronavirus (PCR) 03/13/21 03/14/21 03/14/21 23:46 05:32 05:50 WBC 11.6 H RBC Hgb Hct MCV MCHC RDW Plt Count Lymph % (Auto) [place] % (Auto) Lymph # (Auto) [place] # (Auto) Seg Neutrophils % Seg Neuts % (Manual) Lymphocytes % (Manual) Monocytes % (Manual) Nucleated RBC % Seg Neutrophils # Seg Neutrophils # Man Lymphocytes # (Manual) Monocytes # (Manual) PT INR APTT D-Dimer Heparin Anti-Xa Level ABG pH POC ABG pCO2 POC ABG pO2 ABG pO2 ABG HCO3 ABG O2 Saturation ABG Base Excess ABG Hemoglobin ABG Oxyhemoglobin ABG Sodium ABG Potassium ABG Glucose Oxyhemoglobin Sodium Potassium Chloride Carbon Dioxide BUN Creatinine Glucose POC Glucose 332 H 316 H Lactic Acid Calcium Phosphorus Magnesium Ferritin Lactate Dehydrogenase C-Reactive Protein NT-Pro-B Natriuret Pep Total Protein Albumin Triglycerides Arterial Blood Glucose Urine pH Ur Specific [place] Coronavirus (PCR) 03/14/21 03/14/21 03/14/21 05:50 11:33 16:53 WBC RBC Hgb Hct MCV MCHC RDW Plt Count Lymph % (Auto) [place] % (Auto) Lymph # (Auto) [place] # (Auto) Seg Neutrophils % Seg Neuts % (Manual) Lymphocytes % (Manual) Monocytes % (Manual) Nucleated RBC % Seg Neutrophils # Seg Neutrophils # Man Lymphocytes # (Manual) Monocytes # (Manual) PT INR APTT D-Dimer Heparin Anti-Xa Level ABG pH POC ABG pCO2 POC ABG pO2 ABG pO2 ABG HCO3 ABG O2 Saturation ABG Base Excess ABG Hemoglobin ABG Oxyhemoglobin ABG Sodium ABG Potassium ABG Glucose Oxyhemoglobin Sodium Potassium 5.9 H Chloride Carbon Dioxide 31 H BUN 48 H Creatinine Glucose 380 H POC Glucose 315 H 235 H Lactic Acid Calcium Phosphorus Magnesium 3.40 H Ferritin Lactate Dehydrogenase C-Reactive Protein NT-Pro-B Natriuret Pep Total Protein Albumin Triglycerides Arterial Blood Glucose Urine pH Ur Specific [place] Coronavirus (PCR) 03/14/21 03/14/21 03/15/21 18:34 23:27 01:22 WBC RBC Hgb Hct 46.3 H MCV MCHC RDW Plt Count Lymph % (Auto) [place] % (Auto) Lymph # (Auto) [place] # (Auto) Seg Neutrophils % Seg Neuts % (Manual) Lymphocytes % (Manual) Monocytes % (Manual) Nucleated RBC % Seg Neutrophils # Seg Neutrophils # Man Lymphocytes # (Manual) Monocytes # (Manual) PT INR APTT D-Dimer Heparin Anti-Xa Level ABG pH POC ABG pCO2 POC ABG pO2 ABG pO2 ABG HCO3 ABG O2 Saturation ABG Base Excess ABG Hemoglobin ABG Oxyhemoglobin ABG Sodium ABG Potassium ABG Glucose Oxyhemoglobin Sodium 146 H Potassium Chloride Carbon Dioxide 34 H BUN 49 H Creatinine Glucose 285 H POC Glucose 203 H Lactic Acid Calcium Phosphorus Magnesium Ferritin Lactate Dehydrogenase C-Reactive Protein NT-Pro-B Natriuret Pep Total Protein Albumin Triglycerides Arterial Blood Glucose Urine pH Ur Specific [place] [facility]avirus (PCR) 03/15/21 03/15/21 03/15/21 04:00 06:06 06:06 WBC RBC Hgb Hct MCV MCHC RDW Plt Count Lymph % (Auto) [place] % (Auto) Lymph # (Auto) [place] # (Auto) Seg Neutrophils % Seg Neuts % (Manual) Lymphocytes % (Manual) Monocytes % (Manual) Nucleated RBC % Seg Neutrophils # Seg Neutrophils # Man Lymphocytes # (Manual) Monocytes # (Manual) PT INR APTT D-Dimer 1781.79 H Heparin Anti-Xa Level ABG pH POC ABG pCO2 POC ABG pO2 ABG pO2 ABG HCO3 ABG O2 Saturation ABG Base Excess ABG Hemoglobin ABG Oxyhemoglobin ABG Sodium ABG Potassium ABG Glucose Oxyhemoglobin Sodium 148 H Potassium 5.7 H D Chloride 108.0 H Carbon Dioxide 31 H BUN 46 H Creatinine Glucose 139 H POC Glucose Lactic Acid Calcium Phosphorus 4.80 H D Magnesium 3.00 H Ferritin 976.4 H Lactate Dehydrogenase 630 H C-Reactive Protein NT-Pro-B Natriuret Pep Total Protein Albumin Triglycerides Arterial Blood Glucose Urine pH Ur Specific [place] Coronavirus (PCR) 03/15/21 03/15/21 03/15/21 11:56 14:05 17:09 WBC RBC Hgb Hct MCV MCHC RDW Plt Count Lymph % (Auto) [place] % (Auto) Lymph # (Auto) [place] # (Auto) Seg Neutrophils % Seg Neuts % (Manual) Lymphocytes % (Manual) Monocytes % (Manual) Nucleated RBC % Seg Neutrophils # Seg Neutrophils # Man Lymphocytes # (Manual) Monocytes # (Manual) PT INR APTT D-Dimer Heparin Anti-Xa Level ABG pH POC ABG pCO2 POC ABG pO2 ABG pO2 52.1 L ABG HCO3 36.6 H ABG O2 Saturation 87.6 L ABG Base Excess 9.5 H ABG Hemoglobin ABG Oxyhemoglobin ABG Sodium ABG Potassium ABG Glucose Oxyhemoglobin 85.7 L Sodium Potassium Chloride Carbon Dioxide BUN Creatinine Glucose POC Glucose 219 H 263 H Lactic Acid Calcium Phosphorus Magnesium Ferritin Lactate Dehydrogenase C-Reactive Protein NT-Pro-B Natriuret Pep Total Protein Albumin Triglycerides Arterial Blood Glucose Urine pH Ur Specific [place] Coronavirus (PCR) 03/16/21 03/16/21 03/16/21 00:32 04:11 04:11 WBC 11.9 H RBC Hgb Hct MCV MCHC 30 L RDW Plt Count Lymph % (Auto) [place] % (Auto) Lymph # (Auto) [place] # (Auto) Seg Neutrophils % Seg Neuts % (Manual) Lymphocytes % (Manual) Monocytes % (Manual) Nucleated RBC % Seg Neutrophils # Seg Neutrophils # Man Lymphocytes # (Manual) Monocytes # (Manual) PT INR APTT D-Dimer Heparin Anti-Xa Level ABG pH POC ABG pCO2 POC ABG pO2 ABG pO2 ABG HCO3 ABG O2 Saturation ABG Base Excess ABG Hemoglobin ABG Oxyhemoglobin ABG Sodium ABG Potassium ABG Glucose Oxyhemoglobin Sodium 151 H Potassium Chloride Carbon Dioxide 35 H BUN 48 H Creatinine Glucose 152 H POC Glucose 165 H Lactic Acid Calcium Phosphorus Magnesium Ferritin Lactate Dehydrogenase C-Reactive Protein NT-Pro-B Natriuret Pep Total Protein Albumin Triglycerides Arterial Blood Glucose Urine pH Ur Specific [place] [facility]avirus (PCR) 03/16/21 03/16/21 03/16/21 04:11 05:26 11:35 WBC RBC Hgb Hct MCV MCHC RDW Plt Count Lymph % (Auto) [place] % (Auto) Lymph # (Auto) [place] # (Auto) Seg Neutrophils % Seg Neuts % (Manual) Lymphocytes % (Manual) Monocytes % (Manual) Nucleated RBC % Seg Neutrophils # Seg Neutrophils # Man Lymphocytes # (Manual) Monocytes # (Manual) PT INR APTT D-Dimer Heparin Anti-Xa Level ABG pH POC ABG pCO2 POC ABG pO2 ABG pO2 ABG HCO3 ABG O2 Saturation ABG Base Excess ABG Hemoglobin ABG Oxyhemoglobin ABG Sodium ABG Potassium ABG Glucose Oxyhemoglobin Sodium Potassium Chloride Carbon Dioxide BUN Creatinine Glucose POC Glucose 162 H 187 H Lactic Acid Calcium Phosphorus Magnesium Ferritin Lactate Dehydrogenase C-Reactive Protein NT-Pro-B Natriuret Pep Total Protein Albumin Triglycerides 267 H Arterial Blood Glucose Urine pH Ur Specific [place] [facility]avirus (PCR) 03/16/21 03/16/21 03/16/21 17:29 22:25 23:22 WBC RBC Hgb Hct MCV MCHC RDW Plt Count Lymph % (Auto) [place] % (Auto) Lymph # (Auto) [place] # (Auto) Seg Neutrophils % Seg Neuts % (Manual) Lymphocytes % (Manual) Monocytes % (Manual) Nucleated RBC % Seg Neutrophils # Seg Neutrophils # Man Lymphocytes # (Manual) Monocytes # (Manual) PT INR APTT D-Dimer Heparin Anti-Xa Level ABG pH POC ABG pCO2 POC ABG pO2 ABG pO2 ABG HCO3 ABG O2 Saturation ABG Base Excess ABG Hemoglobin ABG Oxyhemoglobin ABG Sodium ABG Potassium ABG Glucose Oxyhemoglobin Sodium Potassium Chloride Carbon Dioxide BUN Creatinine Glucose POC Glucose 237 H 165 H 189 H Lactic Acid Calcium Phosphorus Magnesium Ferritin Lactate Dehydrogenase C-Reactive Protein NT-Pro-B Natriuret Pep Total Protein Albumin Triglycerides Arterial Blood Glucose Urine pH Ur Specific [place] [facility]avirus (PCR) 03/17/21 03/17/21 03/17/21 04:40 04:40 04:40 WBC 14.1 H RBC Hgb Hct MCV MCHC RDW 15.3 H Plt Count Lymph % (Auto) 12.6 L [place] % (Auto) 11.3 H Lymph # (Auto) [place] # (Auto) 1.6 H Seg Neutrophils % 74.9 H Seg Neuts % (Manual) Lymphocytes % (Manual) Monocytes % (Manual) Nucleated RBC % Seg Neutrophils # 10.5 H Seg Neutrophils # Man Lymphocytes # (Manual) Monocytes # (Manual) PT INR APTT D-Dimer 1359.12 H Heparin Anti-Xa Level ABG pH POC ABG pCO2 POC ABG pO2 ABG pO2 ABG HCO3 ABG O2 Saturation ABG Base Excess ABG Hemoglobin ABG Oxyhemoglobin ABG Sodium ABG Potassium ABG Glucose Oxyhemoglobin Sodium 148 H Potassium Chloride 107.5 H Carbon Dioxide 33 H BUN 42 H Creatinine Glucose 183 H POC Glucose Lactic Acid Calcium Phosphorus Magnesium 2.70 H Ferritin Lactate Dehydrogenase C-Reactive Protein NT-Pro-B Natriuret Pep Total Protein Albumin Triglycerides Arterial Blood Glucose Urine pH Ur Specific [place] [facility]avirus (PCR) 03/17/21 03/17/21 03/17/21 05:53 11:05 11:51 WBC RBC Hgb Hct MCV MCHC RDW Plt Count Lymph % (Auto) [place] % (Auto) Lymph # (Auto) [place] # (Auto) Seg Neutrophils % Seg Neuts % (Manual) Lymphocytes % (Manual) Monocytes % (Manual) Nucleated RBC % Seg Neutrophils # Seg Neutrophils # Man Lymphocytes # (Manual) Monocytes # (Manual) PT INR APTT D-Dimer Heparin Anti-Xa Level ABG pH POC ABG pCO2 POC ABG pO2 ABG pO2 ABG HCO3 35.7 H ABG O2 Saturation ABG Base Excess 8.7 H ABG Hemoglobin ABG Oxyhemoglobin ABG Sodium ABG Potassium ABG Glucose Oxyhemoglobin 94.2 L Sodium Potassium Chloride Carbon Dioxide BUN Creatinine Glucose POC Glucose 176 H 197 H Lactic Acid Calcium Phosphorus Magnesium Ferritin Lactate Dehydrogenase C-Reactive Protein NT-Pro-B Natriuret Pep Total Protein Albumin Triglycerides Arterial Blood Glucose Urine pH Ur Specific [place] [facility]avirus (PCR) 03/17/21 03/17/21 03/17/21 16:54 21:10 23:33 WBC RBC Hgb Hct MCV MCHC RDW Plt Count Lymph % (Auto) [place] % (Auto) Lymph # (Auto) [place] # (Auto) Seg Neutrophils % Seg Neuts % (Manual) Lymphocytes % (Manual) Monocytes % (Manual) Nucleated RBC % Seg Neutrophils # Seg Neutrophils # Man Lymphocytes # (Manual) Monocytes # (Manual) PT INR APTT D-Dimer Heparin Anti-Xa Level ABG pH POC ABG pCO2 POC ABG pO2 ABG pO2 ABG HCO3 ABG O2 Saturation ABG Base Excess ABG Hemoglobin ABG Oxyhemoglobin ABG Sodium ABG Potassium ABG Glucose Oxyhemoglobin Sodium Potassium Chloride Carbon Dioxide BUN Creatinine Glucose POC Glucose 135 H 160 H 138 H Lactic Acid Calcium Phosphorus Magnesium Ferritin Lactate Dehydrogenase C-Reactive Protein NT-Pro-B Natriuret Pep Total Protein Albumin Triglycerides Arterial Blood Glucose Urine pH Ur Specific [place] [facility]avirus (PCR) 03/18/21 03/18/21 03/18/21 04:18 04:50 05:43 WBC RBC Hgb Hct MCV MCHC RDW Plt Count Lymph % (Auto) [place] % (Auto) Lymph # (Auto) [place] # (Auto) Seg Neutrophils % Seg Neuts % (Manual) Lymphocytes % (Manual) Monocytes % (Manual) Nucleated RBC % Seg Neutrophils # Seg Neutrophils # Man Lymphocytes # (Manual) Monocytes # (Manual) PT INR APTT D-Dimer Heparin Anti-Xa Level ABG pH POC ABG pCO2 POC ABG pO2 ABG pO2 59.8 L ABG HCO3 36.5 H ABG O2 Saturation 90.7 L ABG Base Excess 9.4 H ABG Hemoglobin 12.0 L ABG Oxyhemoglobin ABG Sodium ABG Potassium ABG Glucose Oxyhemoglobin 88.9 L Sodium Potassium Chloride 107.2 H Carbon Dioxide 34 H BUN 38 H Creatinine 0.7 L Glucose 136 H POC Glucose 128 H Lactic Acid Calcium Phosphorus Magnesium Ferritin Lactate Dehydrogenase C-Reactive Protein NT-Pro-B Natriuret Pep Total Protein Albumin Triglycerides Arterial Blood Glucose Urine pH Ur Specific [place] [facility]avirus (PCR) 03/18/21 03/18/21 03/18/21 11:20 17:35 23:35 WBC RBC Hgb Hct MCV MCHC RDW Plt Count Lymph % (Auto) [place] % (Auto) Lymph # (Auto) [place] # (Auto) Seg Neutrophils % Seg Neuts % (Manual) Lymphocytes % (Manual) Monocytes % (Manual) Nucleated RBC % Seg Neutrophils # Seg Neutrophils # Man Lymphocytes # (Manual) Monocytes # (Manual) PT INR APTT D-Dimer Heparin Anti-Xa Level ABG pH POC ABG pCO2 POC ABG pO2 ABG pO2 70.7 L ABG HCO3 33.6 H ABG O2 Saturation ABG Base Excess 8.0 H ABG Hemoglobin ABG Oxyhemoglobin ABG Sodium ABG Potassium ABG Glucose Oxyhemoglobin 93.7 L Sodium Potassium Chloride Carbon Dioxide BUN Creatinine Glucose POC Glucose 189 H 144 H Lactic Acid Calcium Phosphorus Magnesium Ferritin Lactate Dehydrogenase C-Reactive Protein NT-Pro-B Natriuret Pep Total Protein Albumin Triglycerides Arterial Blood Glucose Urine pH Ur Specific [place] Coronavirus (PCR) 03/19/21 03/19/21 03/19/21 02:35 04:20 04:20 WBC 14.0 H RBC Hgb Hct MCV MCHC RDW Plt Count Lymph % (Auto) [place] % (Auto) Lymph # (Auto) [place] # (Auto) Seg Neutrophils % Seg Neuts % (Manual) Lymphocytes % (Manual) Monocytes % (Manual) Nucleated RBC % Seg Neutrophils # Seg Neutrophils # Man Lymphocytes # (Manual) Monocytes # (Manual) PT INR APTT D-Dimer Heparin Anti-Xa Level ABG pH POC ABG pCO2 POC ABG pO2 ABG pO2 ABG HCO3 32.0 H ABG O2 Saturation ABG Base Excess 5.2 H ABG Hemoglobin 13.6 L ABG Oxyhemoglobin ABG Sodium ABG Potassium ABG Glucose Oxyhemoglobin 94.6 L Sodium 146 H Potassium Chloride 109.3 H Carbon Dioxide BUN 36 H Creatinine Glucose 203 H POC Glucose Lactic Acid Calcium Phosphorus Magnesium Ferritin Lactate Dehydrogenase C-Reactive Protein NT-Pro-B Natriuret Pep Total Protein Albumin Triglycerides 254 H Arterial Blood Glucose Urine pH Ur Specific [place] [facility]avirus (PCR) 03/19/21 03/19/21 03/19/21 05:45 11:36 23:51 WBC RBC Hgb Hct MCV MCHC RDW Plt Count Lymph % (Auto) [place] % (Auto) Lymph # (Auto) [place] # (Auto) Seg Neutrophils % Seg Neuts % (Manual) Lymphocytes % (Manual) Monocytes % (Manual) Nucleated RBC % Seg Neutrophils # Seg Neutrophils # Man Lymphocytes # (Manual) Monocytes # (Manual) PT INR APTT D-Dimer Heparin Anti-Xa Level ABG pH POC ABG pCO2 POC ABG pO2 ABG pO2 ABG HCO3 ABG O2 Saturation ABG Base Excess ABG Hemoglobin ABG Oxyhemoglobin ABG Sodium ABG Potassium ABG Glucose Oxyhemoglobin Sodium Potassium Chloride Carbon Dioxide BUN Creatinine Glucose POC Glucose 164 H 172 H 140 H Lactic Acid Calcium Phosphorus Magnesium Ferritin Lactate Dehydrogenase C-Reactive Protein NT-Pro-B Natriuret Pep Total Protein Albumin Triglycerides Arterial Blood Glucose Urine pH Ur Specific [place] Coronavirus (PCR) 03/20/21 03/20/21 03/20/21 03:29 04:45 04:45 WBC RBC Hgb Hct MCV 95 H MCHC RDW 15.7 H Plt Count Lymph % (Auto) [place] % (Auto) Lymph # (Auto) [place] # (Auto) Seg Neutrophils % Seg Neuts % (Manual) Lymphocytes % (Manual) Monocytes % (Manual) Nucleated RBC % Seg Neutrophils # Seg Neutrophils # Man Lymphocytes # (Manual) Monocytes # (Manual) PT INR APTT D-Dimer Heparin Anti-Xa Level ABG pH 7.349 L POC ABG pCO2 POC ABG pO2 ABG pO2 ABG HCO3 33.7 H ABG O2 Saturation ABG Base Excess 6.4 H ABG Hemoglobin 11.8 L ABG Oxyhemoglobin ABG Sodium ABG Potassium ABG Glucose Oxyhemoglobin 93.9 L Sodium 146 H Potassium 5.5 H Chloride 111.1 H Carbon Dioxide BUN 34 H Creatinine 0.7 L Glucose 145 H POC Glucose Lactic Acid Calcium Phosphorus Magnesium 2.50 H Ferritin Lactate Dehydrogenase C-Reactive Protein NT-Pro-B Natriuret Pep Total Protein Albumin Triglycerides Arterial Blood Glucose Urine pH Ur Specific [place] Coronavirus (PCR) 03/20/21 03/20/21 03/20/21 05:41 09:08 11:54 WBC RBC Hgb Hct MCV MCHC RDW Plt Count Lymph % (Auto) [place] % (Auto) Lymph # (Auto) [place] # (Auto) Seg Neutrophils % Seg Neuts % (Manual) Lymphocytes % (Manual) Monocytes % (Manual) Nucleated RBC % Seg Neutrophils # Seg Neutrophils # Man Lymphocytes # (Manual) Monocytes # (Manual) PT INR APTT D-Dimer Heparin Anti-Xa Level ABG pH POC ABG pCO2 POC ABG pO2 ABG pO2 ABG HCO3 ABG O2 Saturation ABG Base Excess ABG Hemoglobin ABG Oxyhemoglobin ABG Sodium ABG Potassium ABG Glucose Oxyhemoglobin Sodium Potassium Chloride Carbon Dioxide BUN Creatinine Glucose POC Glucose 108 H 132 H 162 H Lactic Acid Calcium Phosphorus Magnesium Ferritin Lactate Dehydrogenase C-Reactive Protein NT-Pro-B Natriuret Pep Total Protein Albumin Triglycerides Arterial Blood Glucose Urine pH Ur Specific [place] Coronavirus (PCR) 03/20/21 03/21/21 03/21/21 17:28 00:31 04:44 WBC RBC Hgb Hct MCV MCHC RDW Plt Count Lymph % (Auto) [place] % (Auto) Lymph # (Auto) [place] # (Auto) Seg Neutrophils % Seg Neuts % (Manual) Lymphocytes % (Manual) Monocytes % (Manual) Nucleated RBC % Seg Neutrophils # Seg Neutrophils # Man Lymphocytes # (Manual) Monocytes # (Manual) PT INR APTT D-Dimer Heparin Anti-Xa Level ABG pH POC ABG pCO2 POC ABG pO2 ABG pO2 ABG HCO3 ABG O2 Saturation ABG Base Excess ABG Hemoglobin ABG Oxyhemoglobin ABG Sodium ABG Potassium ABG Glucose Oxyhemoglobin Sodium Potassium Chloride 108.3 H Carbon Dioxide BUN 30 H Creatinine 0.7 L Glucose POC Glucose 160 H 122 H Lactic Acid Calcium Phosphorus Magnesium Ferritin Lactate Dehydrogenase C-Reactive Protein NT-Pro-B Natriuret Pep Total Protein Albumin Triglycerides Arterial Blood Glucose Urine pH Ur Specific [place] Coronavirus (PCR) 03/21/21 03/21/21 03/21/21 09:18 10:09 13:20 WBC RBC Hgb Hct MCV MCHC RDW Plt Count Lymph % (Auto) [place] % (Auto) Lymph # (Auto) [place] # (Auto) Seg Neutrophils % Seg Neuts % (Manual) Lymphocytes % (Manual) Monocytes % (Manual) Nucleated RBC % Seg Neutrophils # Seg Neutrophils # Man Lymphocytes # (Manual) Monocytes # (Manual) PT INR APTT D-Dimer Heparin Anti-Xa Level ABG pH POC ABG pCO2 POC ABG pO2 ABG pO2 60.7 L ABG HCO3 30.6 H ABG O2 Saturation 93.6 L ABG Base Excess 5.3 H ABG Hemoglobin ABG Oxyhemoglobin ABG Sodium ABG Potassium ABG Glucose Oxyhemoglobin 91.7 L Sodium Potassium Chloride Carbon Dioxide BUN Creatinine Glucose POC Glucose 169 H 122 H Lactic Acid Calcium Phosphorus Magnesium Ferritin Lactate Dehydrogenase C-Reactive Protein NT-Pro-B Natriuret Pep Total Protein Albumin Triglycerides Arterial Blood Glucose Urine pH Ur Specific [place] [facility]avirus (PCR) 03/21/21 03/21/21 03/21/21 17:25 22:41 23:52 WBC RBC Hgb Hct MCV MCHC RDW Plt Count Lymph % (Auto) [place] % (Auto) Lymph # (Auto) [place] # (Auto) Seg Neutrophils % Seg Neuts % (Manual) Lymphocytes % (Manual) Monocytes % (Manual) Nucleated RBC % Seg Neutrophils # Seg Neutrophils # Man Lymphocytes # (Manual) Monocytes # (Manual) PT INR APTT D-Dimer Heparin Anti-Xa Level ABG pH POC ABG pCO2 POC ABG pO2 ABG pO2 ABG HCO3 ABG O2 Saturation ABG Base Excess ABG Hemoglobin ABG Oxyhemoglobin ABG Sodium ABG Potassium ABG Glucose Oxyhemoglobin Sodium Potassium Chloride Carbon Dioxide BUN Creatinine Glucose POC Glucose 121 H 139 H 140 H Lactic Acid Calcium Phosphorus Magnesium Ferritin Lactate Dehydrogenase C-Reactive Protein NT-Pro-B Natriuret Pep Total Protein Albumin Triglycerides Arterial Blood Glucose Urine pH Ur Specific [place] Coronavirus (PCR) 03/22/21 03/22/21 03/22/21 05:58 07:26 07:26 WBC RBC Hgb Hct MCV MCHC 31 L RDW 16.1 H Plt Count Lymph % (Auto) [place] % (Auto) Lymph # (Auto) [place] # (Auto) Seg Neutrophils % Seg Neuts % (Manual) Lymphocytes % (Manual) Monocytes % (Manual) Nucleated RBC % Seg Neutrophils # Seg Neutrophils # Man Lymphocytes # (Manual) Monocytes # (Manual) PT INR APTT D-Dimer Heparin Anti-Xa Level ABG pH POC ABG pCO2 POC ABG pO2 ABG pO2 ABG HCO3 ABG O2 Saturation ABG Base Excess ABG Hemoglobin ABG Oxyhemoglobin ABG Sodium ABG Potassium ABG Glucose Oxyhemoglobin Sodium Potassium Chloride 108.5 H Carbon Dioxide BUN 44 H Creatinine Glucose 120 H POC Glucose 131 H Lactic Acid Calcium Phosphorus 5.80 H Magnesium 2.80 H Ferritin Lactate Dehydrogenase C-Reactive Protein NT-Pro-B Natriuret Pep Total Protein Albumin Triglycerides 305 H Arterial Blood Glucose Urine pH Ur Specific [place] Coronavirus (PCR) 03/22/21 03/22/21 03/22/21 09:38 11:15 16:01 WBC RBC Hgb Hct MCV MCHC RDW Plt Count Lymph % (Auto) [place] % (Auto) Lymph # (Auto) [place] # (Auto) Seg Neutrophils % Seg Neuts % (Manual) Lymphocytes % (Manual) Monocytes % (Manual) Nucleated RBC % Seg Neutrophils # Seg Neutrophils # Man Lymphocytes # (Manual) Monocytes # (Manual) PT INR APTT D-Dimer Heparin Anti-Xa Level ABG pH POC ABG pCO2 POC ABG pO2 ABG pO2 70.0 L ABG HCO3 30.0 H ABG O2 Saturation 94.6 L ABG Base Excess 3.6 H ABG Hemoglobin 13.5 L ABG Oxyhemoglobin ABG Sodium ABG Potassium ABG Glucose Oxyhemoglobin 92.5 L Sodium Potassium Chloride Carbon Dioxide BUN Creatinine Glucose POC Glucose 186 H 148 H Lactic Acid Calcium Phosphorus Magnesium Ferritin Lactate Dehydrogenase C-Reactive Protein NT-Pro-B Natriuret Pep Total Protein Albumin Triglycerides Arterial Blood Glucose Urine pH Ur Specific [place] Coronavirus (PCR) 03/22/21 03/22/21 03/23/21 21:13 23:48 07:04 WBC 11.7 H RBC Hgb Hct MCV 95 H MCHC RDW 16.1 H Plt Count Lymph % (Auto) [place] % (Auto) Lymph # (Auto) [place] # (Auto) Seg Neutrophils % Seg Neuts % (Manual) Lymphocytes % (Manual) Monocytes % (Manual) Nucleated RBC % Seg Neutrophils # Seg Neutrophils # Man Lymphocytes # (Manual) Monocytes # (Manual) PT INR APTT D-Dimer Heparin Anti-Xa Level ABG pH POC ABG pCO2 POC ABG pO2 ABG pO2 ABG HCO3 ABG O2 Saturation ABG Base Excess ABG Hemoglobin ABG Oxyhemoglobin ABG Sodium ABG Potassium ABG Glucose Oxyhemoglobin Sodium Potassium Chloride Carbon Dioxide BUN Creatinine Glucose POC Glucose 121 H 114 H Lactic Acid Calcium Phosphorus Magnesium Ferritin Lactate Dehydrogenase C-Reactive Protein NT-Pro-B Natriuret Pep Total Protein Albumin Triglycerides Arterial Blood Glucose Urine pH Ur Specific [place] Coronavirus (PCR) 03/23/21 03/23/21 03/23/21 07:04 08:35 11:19 WBC RBC Hgb Hct MCV MCHC RDW Plt Count Lymph % (Auto) [place] % (Auto) Lymph # (Auto) [place] # (Auto) Seg Neutrophils % Seg Neuts % (Manual) Lymphocytes % (Manual) Monocytes % (Manual) Nucleated RBC % Seg Neutrophils # Seg Neutrophils # Man Lymphocytes # (Manual) Monocytes # (Manual) PT INR APTT D-Dimer Heparin Anti-Xa Level ABG pH 7.345 L POC ABG pCO2 POC ABG pO2 ABG pO2 167.9 H ABG HCO3 32.2 H ABG O2 Saturation ABG Base Excess 4.8 H ABG Hemoglobin 13.4 L ABG Oxyhemoglobin ABG Sodium ABG Potassium ABG Glucose Oxyhemoglobin Sodium 148 H Potassium Chloride 111.3 H Carbon Dioxide 31 H BUN 31 H Creatinine Glucose 131 H POC Glucose 165 H Lactic Acid Calcium Phosphorus Magnesium 2.50 H Ferritin Lactate Dehydrogenase C-Reactive Protein NT-Pro-B Natriuret Pep Total Protein Albumin Triglycerides Arterial Blood Glucose Urine pH Ur Specific [place] Coronavirus (PCR) 03/23/21 03/23/21 03/24/21 16:48 20:52 00:07 WBC RBC Hgb Hct MCV MCHC RDW Plt Count Lymph % (Auto) [place] % (Auto) Lymph # (Auto) [place] # (Auto) Seg Neutrophils % Seg Neuts % (Manual) Lymphocytes % (Manual) Monocytes % (Manual) Nucleated RBC % Seg Neutrophils # Seg Neutrophils # Man Lymphocytes # (Manual) Monocytes # (Manual) PT INR APTT D-Dimer Heparin Anti-Xa Level ABG pH POC ABG pCO2 POC ABG pO2 ABG pO2 ABG HCO3 ABG O2 Saturation ABG Base Excess ABG Hemoglobin ABG Oxyhemoglobin ABG Sodium ABG Potassium ABG Glucose Oxyhemoglobin Sodium Potassium Chloride Carbon Dioxide BUN Creatinine Glucose POC Glucose 160 H 127 H 147 H Lactic Acid Calcium Phosphorus Magnesium Ferritin Lactate Dehydrogenase C-Reactive Protein NT-Pro-B Natriuret Pep Total Protein Albumin Triglycerides Arterial Blood Glucose Urine pH Ur Specific [place] Coronavirus (PCR) 03/24/21 03/24/21 03/24/21 04:34 04:34 05:20 WBC 13.3 H RBC Hgb Hct MCV MCHC 31 L RDW 16.1 H Plt Count Lymph % (Auto) [place] % (Auto) Lymph # (Auto) [place] # (Auto) Seg Neutrophils % Seg Neuts % (Manual) Lymphocytes % (Manual) Monocytes % (Manual) Nucleated RBC % Seg Neutrophils # Seg Neutrophils # Man Lymphocytes # (Manual) Monocytes # (Manual) PT INR APTT D-Dimer Heparin Anti-Xa Level ABG pH POC ABG pCO2 POC ABG pO2 ABG pO2 ABG HCO3 ABG O2 Saturation ABG Base Excess ABG Hemoglobin ABG Oxyhemoglobin ABG Sodium ABG Potassium ABG Glucose Oxyhemoglobin Sodium Potassium 5.2 H Chloride Carbon Dioxide BUN 28 H Creatinine 0.7 L Glucose 152 H POC Glucose 141 H Lactic Acid Calcium Phosphorus Magnesium Ferritin Lactate Dehydrogenase C-Reactive Protein NT-Pro-B Natriuret Pep Total Protein Albumin Triglycerides Arterial Blood Glucose Urine pH Ur Specific [place] Coronavirus (PCR) 03/24/21 03/24/21 03/24/21 09:40 11:38 16:45 WBC RBC Hgb Hct MCV MCHC RDW Plt Count Lymph % (Auto) [place] % (Auto) Lymph # (Auto) [place] # (Auto) Seg Neutrophils % Seg Neuts % (Manual) Lymphocytes % (Manual) Monocytes % (Manual) Nucleated RBC % Seg Neutrophils # Seg Neutrophils # Man Lymphocytes # (Manual) Monocytes # (Manual) PT INR APTT D-Dimer Heparin Anti-Xa Level ABG pH POC ABG pCO2 POC ABG pO2 ABG pO2 ABG HCO3 ABG O2 Saturation ABG Base Excess ABG Hemoglobin ABG Oxyhemoglobin ABG Sodium ABG Potassium ABG Glucose Oxyhemoglobin Sodium Potassium Chloride Carbon Dioxide BUN Creatinine Glucose POC Glucose 126 H 136 H 118 H Lactic Acid Calcium Phosphorus Magnesium Ferritin Lactate Dehydrogenase C-Reactive Protein NT-Pro-B Natriuret Pep Total Protein Albumin Triglycerides Arterial Blood Glucose Urine pH Ur Specific [place] Coronavirus (PCR) 03/24/21 03/24/21 03/25/21 21:03 23:49 04:32 WBC RBC Hgb Hct MCV MCHC RDW 16.1 H Plt Count 121 L Lymph % (Auto) [place] % (Auto) Lymph # (Auto) [place] # (Auto) Seg Neutrophils % Seg Neuts % (Manual) Lymphocytes % (Manual) Monocytes % (Manual) Nucleated RBC % Seg Neutrophils # Seg Neutrophils # Man Lymphocytes # (Manual) Monocytes # (Manual) PT INR APTT D-Dimer Heparin Anti-Xa Level ABG pH POC ABG pCO2 POC ABG pO2 ABG pO2 ABG HCO3 ABG O2 Saturation ABG Base Excess ABG Hemoglobin ABG Oxyhemoglobin ABG Sodium ABG Potassium ABG Glucose Oxyhemoglobin Sodium Potassium Chloride Carbon Dioxide BUN Creatinine Glucose POC Glucose 116 H 125 H Lactic Acid Calcium Phosphorus Magnesium Ferritin Lactate Dehydrogenase C-Reactive Protein NT-Pro-B Natriuret Pep Total Protein Albumin Triglycerides Arterial Blood Glucose Urine pH Ur Specific [place] Coronavirus (PCR) 03/25/21 03/25/21 03/25/21 04:32 05:21 09:29 WBC RBC Hgb Hct MCV MCHC RDW Plt Count Lymph % (Auto) [place] % (Auto) Lymph # (Auto) [place] # (Auto) Seg Neutrophils % Seg Neuts % (Manual) Lymphocytes % (Manual) Monocytes % (Manual) Nucleated RBC % Seg Neutrophils # Seg Neutrophils # Man Lymphocytes # (Manual) Monocytes # (Manual) PT INR APTT D-Dimer Heparin Anti-Xa Level ABG pH POC ABG pCO2 POC ABG pO2 ABG pO2 ABG HCO3 ABG O2 Saturation ABG Base Excess ABG Hemoglobin ABG Oxyhemoglobin ABG Sodium ABG Potassium ABG Glucose Oxyhemoglobin Sodium 135 L D Potassium Chloride Carbon Dioxide BUN 25 H Creatinine 0.7 L Glucose 168 H POC Glucose 149 H 115 H Lactic Acid Calcium Phosphorus Magnesium Ferritin Lactate Dehydrogenase C-Reactive Protein NT-Pro-B Natriuret Pep Total Protein Albumin Triglycerides Arterial Blood Glucose Urine pH Ur Specific [place] Coronavirus (PCR) 03/25/21 03/25/21 03/25/21 12:26 12:35 23:53 WBC RBC Hgb Hct MCV MCHC RDW Plt Count Lymph % (Auto) [place] % (Auto) Lymph # (Auto) [place] # (Auto) Seg Neutrophils % Seg Neuts % (Manual) Lymphocytes % (Manual) Monocytes % (Manual) Nucleated RBC % Seg Neutrophils # Seg Neutrophils # Man Lymphocytes # (Manual) Monocytes # (Manual) PT INR APTT D-Dimer Heparin Anti-Xa Level ABG pH POC ABG pCO2 POC ABG pO2 ABG pO2 100.5 H ABG HCO3 33.6 H ABG O2 Saturation ABG Base Excess 6.4 H ABG Hemoglobin 12.0 L ABG Oxyhemoglobin ABG Sodium ABG Potassium ABG Glucose Oxyhemoglobin Sodium Potassium Chloride Carbon Dioxide BUN Creatinine Glucose POC Glucose 108 H 137 H Lactic Acid Calcium Phosphorus Magnesium Ferritin Lactate Dehydrogenase C-Reactive Protein NT-Pro-B Natriuret Pep Total Protein Albumin Triglycerides Arterial Blood Glucose Urine pH Ur Specific [place] Coronavirus (PCR) 03/26/21 03/26/21 03/26/21 05:14 07:09 07:09 WBC RBC Hgb Hct MCV MCHC RDW 16.5 H Plt Count 139 L Lymph % (Auto) [place] % (Auto) Lymph # (Auto) [place] # (Auto) Seg Neutrophils % Seg Neuts % (Manual) Lymphocytes % (Manual) Monocytes % (Manual) Nucleated RBC % Seg Neutrophils # Seg Neutrophils # Man Lymphocytes # (Manual) Monocytes # (Manual) PT INR APTT D-Dimer Heparin Anti-Xa Level ABG pH POC ABG pCO2 POC ABG pO2 ABG pO2 ABG HCO3 ABG O2 Saturation ABG Base Excess ABG Hemoglobin ABG Oxyhemoglobin ABG Sodium ABG Potassium ABG Glucose Oxyhemoglobin Sodium Potassium Chloride Carbon Dioxide BUN 22 H Creatinine 0.7 L Glucose 108 H POC Glucose 116 H Lactic Acid Calcium Phosphorus Magnesium Ferritin Lactate Dehydrogenase C-Reactive Protein NT-Pro-B Natriuret Pep Total Protein Albumin Triglycerides Arterial Blood Glucose Urine pH Ur Specific [place] Coronavirus (PCR) 03/26/21 03/26/21 03/26/21 09:51 11:15 16:59 WBC RBC Hgb Hct MCV MCHC RDW Plt Count Lymph % (Auto) [place] % (Auto) Lymph # (Auto) [place] # (Auto) Seg Neutrophils % Seg Neuts % (Manual) Lymphocytes % (Manual) Monocytes % (Manual) Nucleated RBC % Seg Neutrophils # Seg Neutrophils # Man Lymphocytes # (Manual) Monocytes # (Manual) PT INR APTT D-Dimer Heparin Anti-Xa Level ABG pH POC ABG pCO2 POC ABG pO2 ABG pO2 ABG HCO3 ABG O2 Saturation ABG Base Excess ABG Hemoglobin ABG Oxyhemoglobin ABG Sodium ABG Potassium ABG Glucose Oxyhemoglobin Sodium Potassium Chloride Carbon Dioxide BUN Creatinine Glucose POC Glucose 107 H 119 H 174 H Lactic Acid Calcium Phosphorus Magnesium Ferritin Lactate Dehydrogenase C-Reactive Protein NT-Pro-B Natriuret Pep Total Protein Albumin Triglycerides Arterial Blood Glucose Urine pH Ur Specific [place] Coronavirus (PCR) 03/26/21 03/27/21 03/27/21 22:18 07:08 10:28 WBC RBC Hgb Hct MCV 95 H MCHC RDW 16.2 H Plt Count 134 L Lymph % (Auto) [place] % (Auto) Lymph # (Auto) [place] # (Auto) Seg Neutrophils % Seg Neuts % (Manual) Lymphocytes % (Manual) Monocytes % (Manual) Nucleated RBC % Seg Neutrophils # Seg Neutrophils # Man Lymphocytes # (Manual) Monocytes # (Manual) PT INR APTT D-Dimer Heparin Anti-Xa Level ABG pH POC ABG pCO2 POC ABG pO2 ABG pO2 ABG HCO3 ABG O2 Saturation ABG Base Excess ABG Hemoglobin ABG Oxyhemoglobin ABG Sodium ABG Potassium ABG Glucose Oxyhemoglobin Sodium Potassium Chloride Carbon Dioxide BUN Creatinine Glucose POC Glucose 107 H 52 L Lactic Acid Calcium Phosphorus Magnesium Ferritin Lactate Dehydrogenase C-Reactive Protein NT-Pro-B Natriuret Pep Total Protein Albumin Triglycerides Arterial Blood Glucose Urine pH Ur Specific [place] Coronavirus (PCR) 03/27/21 03/27/21 03/27/21 10:28 11:45 17:39 WBC RBC Hgb Hct MCV MCHC RDW Plt Count Lymph % (Auto) [place] % (Auto) Lymph # (Auto) [place] # (Auto) Seg Neutrophils % Seg Neuts % (Manual) Lymphocytes % (Manual) Monocytes % (Manual) Nucleated RBC % Seg Neutrophils # Seg Neutrophils # Man Lymphocytes # (Manual) Monocytes # (Manual) PT INR APTT D-Dimer Heparin Anti-Xa Level ABG pH POC ABG pCO2 POC ABG pO2 ABG pO2 ABG HCO3 ABG O2 Saturation ABG Base Excess ABG Hemoglobin ABG Oxyhemoglobin ABG Sodium ABG Potassium ABG Glucose Oxyhemoglobin Sodium 136 L Potassium Chloride Carbon Dioxide BUN Creatinine 0.7 L Glucose 150 H POC Glucose 121 H 165 H Lactic Acid Calcium Phosphorus Magnesium Ferritin Lactate Dehydrogenase C-Reactive Protein NT-Pro-B Natriuret Pep Total Protein Albumin Triglycerides Arterial Blood Glucose Urine pH Ur Specific [place] Coronavirus (PCR) 03/28/21 03/28/21 03/28/21 07:14 11:42 18:22 WBC RBC Hgb Hct MCV MCHC RDW 16.4 H Plt Count Lymph % (Auto) [place] % (Auto) Lymph # (Auto) [place] # (Auto) Seg Neutrophils % Seg Neuts % (Manual) Lymphocytes % (Manual) Monocytes % (Manual) Nucleated RBC % Seg Neutrophils # Seg Neutrophils # Man Lymphocytes # (Manual) Monocytes # (Manual) PT INR APTT D-Dimer Heparin Anti-Xa Level ABG pH POC ABG pCO2 POC ABG pO2 ABG pO2 ABG HCO3 ABG O2 Saturation ABG Base Excess ABG Hemoglobin ABG Oxyhemoglobin ABG Sodium ABG Potassium ABG Glucose Oxyhemoglobin Sodium Potassium Chloride Carbon Dioxide BUN Creatinine Glucose POC Glucose 145 H 169 H Lactic Acid Calcium Phosphorus Magnesium Ferritin Lactate Dehydrogenase C-Reactive Protein NT-Pro-B Natriuret Pep Total Protein Albumin Triglycerides Arterial Blood Glucose Urine pH Ur Specific [place] Coronavirus (PCR) 03/28/21 03/29/21 03/29/21 23:39 04:50 04:50 WBC RBC Hgb 11.0 L Hct 34.9 L MCV MCHC RDW 15.9 H Plt Count Lymph % (Auto) [place] % (Auto) Lymph # (Auto) [place] # (Auto) Seg Neutrophils % Seg Neuts % (Manual) Lymphocytes % (Manual) Monocytes % (Manual) Nucleated RBC % Seg Neutrophils # Seg Neutrophils # Man Lymphocytes # (Manual) Monocytes # (Manual) PT INR APTT D-Dimer Heparin Anti-Xa Level ABG pH POC ABG pCO2 POC ABG pO2 ABG pO2 ABG HCO3 ABG O2 Saturation ABG Base Excess ABG Hemoglobin ABG Oxyhemoglobin ABG Sodium ABG Potassium ABG Glucose Oxyhemoglobin Sodium Potassium Chloride Carbon Dioxide 34 H BUN Creatinine 0.6 L Glucose 152 H POC Glucose 139 H Lactic Acid Calcium Phosphorus Magnesium Ferritin Lactate Dehydrogenase C-Reactive Protein NT-Pro-B Natriuret Pep Total Protein Albumin Triglycerides Arterial Blood Glucose Urine pH Ur Specific [place] Coronavirus (PCR) 03/29/21 03/29/21 03/29/21 05:25 11:34 18:02 WBC RBC Hgb Hct MCV MCHC RDW Plt Count Lymph % (Auto) [place] % (Auto) Lymph # (Auto) [place] # (Auto) Seg Neutrophils % Seg Neuts % (Manual) Lymphocytes % (Manual) Monocytes % (Manual) Nucleated RBC % Seg Neutrophils # Seg Neutrophils # Man Lymphocytes # (Manual) Monocytes # (Manual) PT INR APTT D-Dimer Heparin Anti-Xa Level ABG pH POC ABG pCO2 POC ABG pO2 ABG pO2 ABG HCO3 ABG O2 Saturation ABG Base Excess ABG Hemoglobin ABG Oxyhemoglobin ABG Sodium ABG Potassium ABG Glucose Oxyhemoglobin Sodium Potassium Chloride Carbon Dioxide BUN Creatinine Glucose POC Glucose 127 H 169 H 173 H Lactic Acid Calcium Phosphorus Magnesium Ferritin Lactate Dehydrogenase C-Reactive Protein NT-Pro-B Natriuret Pep Total Protein Albumin Triglycerides Arterial Blood Glucose Urine pH Ur Specific [place] Coronavirus (PCR) 03/29/21 03/30/21 03/30/21 21:42 00:01 05:36 WBC RBC Hgb Hct MCV MCHC RDW 16.7 H Plt Count Lymph % (Auto) [place] % (Auto) Lymph # (Auto) [place] # (Auto) Seg Neutrophils % Seg Neuts % (Manual) Lymphocytes % (Manual) Monocytes % (Manual) Nucleated RBC % Seg Neutrophils # Seg Neutrophils # Man Lymphocytes # (Manual) Monocytes # (Manual) PT INR APTT D-Dimer Heparin Anti-Xa Level ABG pH POC ABG pCO2 POC ABG pO2 ABG pO2 ABG HCO3 ABG O2 Saturation ABG Base Excess ABG Hemoglobin ABG Oxyhemoglobin ABG Sodium ABG Potassium ABG Glucose Oxyhemoglobin Sodium Potassium Chloride Carbon Dioxide BUN Creatinine Glucose POC Glucose 184 H 161 H Lactic Acid Calcium Phosphorus Magnesium Ferritin Lactate Dehydrogenase C-Reactive Protein NT-Pro-B Natriuret Pep Total Protein Albumin Triglycerides Arterial Blood Glucose Urine pH Ur Specific [place] Coronavirus (PCR) 03/30/21 03/30/21 03/30/21 05:36 06:03 11:32 WBC RBC Hgb Hct MCV MCHC RDW Plt Count Lymph % (Auto) [place] % (Auto) Lymph # (Auto) [place] # (Auto) Seg Neutrophils % Seg Neuts % (Manual) Lymphocytes % (Manual) Monocytes % (Manual) Nucleated RBC % Seg Neutrophils # Seg Neutrophils # Man Lymphocytes # (Manual) Monocytes # (Manual) PT INR APTT D-Dimer Heparin Anti-Xa Level ABG pH POC ABG pCO2 POC ABG pO2 ABG pO2 ABG HCO3 ABG O2 Saturation ABG Base Excess ABG Hemoglobin ABG Oxyhemoglobin ABG Sodium ABG Potassium ABG Glucose Oxyhemoglobin Sodium Potassium Chloride Carbon Dioxide BUN Creatinine 0.5 L Glucose 127 H POC Glucose 130 H 183 H Lactic Acid Calcium Phosphorus Magnesium Ferritin Lactate Dehydrogenase C-Reactive Protein NT-Pro-B Natriuret Pep Total Protein Albumin Triglycerides Arterial Blood Glucose Urine pH Ur Specific [place] Coronavirus (PCR) 03/30/21 03/30/21 03/30/21 15:00 16:23 21:07 WBC RBC Hgb Hct MCV MCHC RDW Plt Count Lymph % (Auto) [place] % (Auto) Lymph # (Auto) [place] # (Auto) Seg Neutrophils % Seg Neuts % (Manual) Lymphocytes % (Manual) Monocytes % (Manual) Nucleated RBC % Seg Neutrophils # Seg Neutrophils # Man Lymphocytes # (Manual) Monocytes # (Manual) PT INR APTT D-Dimer Heparin Anti-Xa Level ABG pH POC ABG pCO2 POC ABG pO2 ABG pO2 67.2 L ABG HCO3 34.9 H ABG O2 Saturation ABG Base Excess 9.1 H ABG Hemoglobin 11.6 L ABG Oxyhemoglobin ABG Sodium ABG Potassium ABG Glucose Oxyhemoglobin 93.0 L Sodium Potassium Chloride Carbon Dioxide BUN Creatinine Glucose POC Glucose 162 H 146 H Lactic Acid Calcium Phosphorus Magnesium Ferritin Lactate Dehydrogenase C-Reactive Protein NT-Pro-B Natriuret Pep Total Protein Albumin Triglycerides Arterial Blood Glucose Urine pH Ur Specific [place] Coronavirus (PCR) 03/30/21 03/31/21 03/31/21 23:23 05:44 11:19 WBC RBC Hgb Hct MCV MCHC RDW Plt Count Lymph % (Auto) [place] % (Auto) Lymph # (Auto) [place] # (Auto) Seg Neutrophils % Seg Neuts % (Manual) Lymphocytes % (Manual) Monocytes % (Manual) Nucleated RBC % Seg Neutrophils # Seg Neutrophils # Man Lymphocytes # (Manual) Monocytes # (Manual) PT INR APTT D-Dimer Heparin Anti-Xa Level ABG pH POC ABG pCO2 POC ABG pO2 ABG pO2 ABG HCO3 ABG O2 Saturation ABG Base Excess ABG Hemoglobin ABG Oxyhemoglobin ABG Sodium ABG Potassium ABG Glucose Oxyhemoglobin Sodium Potassium Chloride Carbon Dioxide BUN Creatinine Glucose POC Glucose 138 H 180 H 178 H Lactic Acid Calcium Phosphorus Magnesium Ferritin Lactate Dehydrogenase C-Reactive Protein NT-Pro-B Natriuret Pep Total Protein Albumin Triglycerides Arterial Blood Glucose Urine pH Ur Specific [place] Coronavirus (PCR) 03/31/21 03/31/21 03/31/21 12:50 13:30 16:06 WBC RBC Hgb 11.3 L Hct 35.1 L MCV MCHC RDW 16.5 H Plt Count Lymph % (Auto) 7.6 L [place] % (Auto) 9.5 H Lymph # (Auto) 0.6 L [place] # (Auto) Seg Neutrophils % 78.3 H Seg Neuts % (Manual) Lymphocytes % (Manual) Monocytes % (Manual) Nucleated RBC % Seg Neutrophils # Seg Neutrophils # Man Lymphocytes # (Manual) Monocytes # (Manual) PT INR APTT D-Dimer Heparin Anti-Xa Level ABG pH POC ABG pCO2 POC ABG pO2 ABG pO2 99.4 H ABG HCO3 34.9 H ABG O2 Saturation ABG Base Excess 8.4 H ABG Hemoglobin 11.8 L ABG Oxyhemoglobin ABG Sodium ABG Potassium ABG Glucose Oxyhemoglobin Sodium Potassium Chloride Carbon Dioxide BUN Creatinine Glucose POC Glucose 197 H Lactic Acid Calcium Phosphorus Magnesium Ferritin Lactate Dehydrogenase C-Reactive Protein NT-Pro-B Natriuret Pep Total Protein Albumin Triglycerides Arterial Blood Glucose Urine pH Ur Specific [place] Coronavirus (PCR) 03/31/21 04/01/21 04/01/21 20:51 05:37 07:16 WBC RBC 3.39 L Hgb 10.5 L Hct 31.6 L MCV MCHC RDW 16.1 H Plt Count Lymph % (Auto) [place] % (Auto) Lymph # (Auto) [place] # (Auto) Seg Neutrophils % Seg Neuts % (Manual) Lymphocytes % (Manual) Monocytes % (Manual) Nucleated RBC % Seg Neutrophils # Seg Neutrophils # Man Lymphocytes # (Manual) Monocytes # (Manual) PT INR APTT D-Dimer Heparin Anti-Xa Level ABG pH POC ABG pCO2 POC ABG pO2 ABG pO2 ABG HCO3 ABG O2 Saturation ABG Base Excess ABG Hemoglobin ABG Oxyhemoglobin ABG Sodium ABG Potassium ABG Glucose Oxyhemoglobin Sodium Potassium Chloride Carbon Dioxide BUN Creatinine Glucose POC Glucose 140 H 128 H Lactic Acid Calcium Phosphorus Magnesium Ferritin Lactate Dehydrogenase C-Reactive Protein NT-Pro-B Natriuret Pep Total Protein Albumin Triglycerides Arterial Blood Glucose Urine pH Ur Specific [place] Coronavirus (PCR) 04/01/21 04/01/21 04/01/21 07:16 11:52 16:56 WBC RBC Hgb Hct MCV MCHC RDW Plt Count Lymph % (Auto) [place] % (Auto) Lymph # (Auto) [place] # (Auto) Seg Neutrophils % Seg Neuts % (Manual) Lymphocytes % (Manual) Monocytes % (Manual) Nucleated RBC % Seg Neutrophils # Seg Neutrophils # Man Lymphocytes # (Manual) Monocytes # (Manual) PT INR APTT D-Dimer Heparin Anti-Xa Level ABG pH POC ABG pCO2 POC ABG pO2 ABG pO2 ABG HCO3 ABG O2 Saturation ABG Base Excess ABG Hemoglobin ABG Oxyhemoglobin ABG Sodium ABG Potassium ABG Glucose Oxyhemoglobin Sodium Potassium Chloride Carbon Dioxide BUN Creatinine 0.6 L Glucose 131 H POC Glucose 182 H 179 H Lactic Acid Calcium 8.3 L Phosphorus Magnesium Ferritin Lactate Dehydrogenase C-Reactive Protein NT-Pro-B Natriuret Pep Total Protein Albumin Triglycerides Arterial Blood Glucose Urine pH Ur Specific [place] Coronavirus (PCR) 04/01/21 04/01/21 04/02/21 21:30 23:40 04:26 WBC RBC 3.62 L Hgb 10.8 L Hct 33.9 L MCV MCHC RDW 16.0 H Plt Count Lymph % (Auto) [place] % (Auto) Lymph # (Auto) [place] # (Auto) Seg Neutrophils % Seg Neuts % (Manual) Lymphocytes % (Manual) Monocytes % (Manual) Nucleated RBC % Seg Neutrophils # Seg Neutrophils # Man Lymphocytes # (Manual) Monocytes # (Manual) PT INR APTT D-Dimer Heparin Anti-Xa Level ABG pH POC ABG pCO2 POC ABG pO2 ABG pO2 ABG HCO3 ABG O2 Saturation ABG Base Excess ABG Hemoglobin ABG Oxyhemoglobin ABG Sodium ABG Potassium ABG Glucose Oxyhemoglobin Sodium Potassium Chloride Carbon Dioxide BUN Creatinine Glucose POC Glucose 131 H 129 H Lactic Acid Calcium Phosphorus Magnesium Ferritin Lactate Dehydrogenase C-Reactive Protein NT-Pro-B Natriuret Pep Total Protein Albumin Triglycerides Arterial Blood Glucose Urine pH Ur Specific [place] Coronavirus (PCR) 04/02/21 04/02/21 04/02/21 04:26 05:54 11:35 WBC RBC Hgb Hct MCV MCHC RDW Plt Count Lymph % (Auto) [place] % (Auto) Lymph # (Auto) [place] # (Auto) Seg Neutrophils % Seg Neuts % (Manual) Lymphocytes % (Manual) Monocytes % (Manual) Nucleated RBC % Seg Neutrophils # Seg Neutrophils # Man Lymphocytes # (Manual) Monocytes # (Manual) PT INR APTT D-Dimer Heparin Anti-Xa Level ABG pH POC ABG pCO2 POC ABG pO2 ABG pO2 ABG HCO3 ABG O2 Saturation ABG Base Excess ABG Hemoglobin ABG Oxyhemoglobin ABG Sodium ABG Potassium ABG Glucose Oxyhemoglobin Sodium 136 L Potassium Chloride Carbon Dioxide BUN Creatinine 0.6 L Glucose 152 H POC Glucose 151 H 178 H Lactic Acid Calcium Phosphorus Magnesium Ferritin Lactate Dehydrogenase C-Reactive Protein NT-Pro-B Natriuret Pep Total Protein Albumin Triglycerides Arterial Blood Glucose Urine pH Ur Specific [place] Coronavirus (PCR) 04/02/21 04/02/21 04/02/21 16:11 21:09 23:38 WBC RBC Hgb Hct MCV MCHC RDW Plt Count Lymph % (Auto) [place] % (Auto) Lymph # (Auto) [place] # (Auto) Seg Neutrophils % Seg Neuts % (Manual) Lymphocytes % (Manual) Monocytes % (Manual) Nucleated RBC % Seg Neutrophils # Seg Neutrophils # Man Lymphocytes # (Manual) Monocytes # (Manual) PT INR APTT D-Dimer Heparin Anti-Xa Level ABG pH POC ABG pCO2 POC ABG pO2 ABG pO2 ABG HCO3 ABG O2 Saturation ABG Base Excess ABG Hemoglobin ABG Oxyhemoglobin ABG Sodium ABG Potassium ABG Glucose Oxyhemoglobin Sodium Potassium Chloride Carbon Dioxide BUN Creatinine Glucose POC Glucose 186 H 145 H 152 H Lactic Acid Calcium Phosphorus Magnesium Ferritin Lactate Dehydrogenase C-Reactive Protein NT-Pro-B Natriuret Pep Total Protein Albumin Triglycerides Arterial Blood Glucose Urine pH Ur Specific [place] Coronavirus (PCR) 04/03/21 04/03/21 04/03/21 04:14 04:14 05:27 WBC RBC 3.62 L Hgb 11.0 L Hct 34.0 L MCV MCHC RDW 16.3 H Plt Count Lymph % (Auto) [place] % (Auto) Lymph # (Auto) [place] # (Auto) Seg Neutrophils % Seg Neuts % (Manual) Lymphocytes % (Manual) Monocytes % (Manual) Nucleated RBC % Seg Neutrophils # Seg Neutrophils # Man Lymphocytes # (Manual) Monocytes # (Manual) PT INR APTT D-Dimer Heparin Anti-Xa Level ABG pH POC ABG pCO2 POC ABG pO2 ABG pO2 ABG HCO3 ABG O2 Saturation ABG Base Excess ABG Hemoglobin ABG Oxyhemoglobin ABG Sodium ABG Potassium ABG Glucose Oxyhemoglobin Sodium Potassium Chloride Carbon Dioxide 31 H BUN Creatinine 0.6 L Glucose 155 H POC Glucose 165 H Lactic Acid Calcium Phosphorus Magnesium Ferritin Lactate Dehydrogenase C-Reactive Protein NT-Pro-B Natriuret Pep Total Protein Albumin Triglycerides Arterial Blood Glucose Urine pH Ur Specific [place] Coronavirus (PCR) 04/03/21 04/03/21 04/03/21 11:02 16:19 19:45 WBC RBC Hgb Hct MCV MCHC RDW Plt Count Lymph % (Auto) [place] % (Auto) Lymph # (Auto) [place] # (Auto) Seg Neutrophils % Seg Neuts % (Manual) Lymphocytes % (Manual) Monocytes % (Manual) Nucleated RBC % Seg Neutrophils # Seg Neutrophils # Man Lymphocytes # (Manual) Monocytes # (Manual) PT INR APTT D-Dimer Heparin Anti-Xa Level ABG pH POC ABG pCO2 POC ABG pO2 ABG pO2 ABG HCO3 ABG O2 Saturation ABG Base Excess ABG Hemoglobin ABG Oxyhemoglobin ABG Sodium ABG Potassium ABG Glucose Oxyhemoglobin Sodium Potassium Chloride Carbon Dioxide BUN Creatinine Glucose POC Glucose 161 H 180 H 136 H Lactic Acid Calcium Phosphorus Magnesium Ferritin Lactate Dehydrogenase C-Reactive Protein NT-Pro-B Natriuret Pep Total Protein Albumin Triglycerides Arterial Blood Glucose Urine pH Ur Specific [place] Coronavirus (PCR) 04/04/21 04/04/21 04/04/21 00:21 04:33 04:33 WBC 13.1 H RBC 3.49 L Hgb 10.3 L Hct 32.7 L MCV MCHC RDW 16.1 H Plt Count Lymph % (Auto) [place] % (Auto) Lymph # (Auto) [place] # (Auto) Seg Neutrophils % Seg Neuts % (Manual) Lymphocytes % (Manual) Monocytes % (Manual) Nucleated RBC % Seg Neutrophils # Seg Neutrophils # Man Lymphocytes # (Manual) Monocytes # (Manual) PT INR APTT D-Dimer Heparin Anti-Xa Level ABG pH POC ABG pCO2 POC ABG pO2 ABG pO2 ABG HCO3 ABG O2 Saturation ABG Base Excess ABG Hemoglobin ABG Oxyhemoglobin ABG Sodium ABG Potassium ABG Glucose Oxyhemoglobin Sodium Potassium Chloride Carbon Dioxide 31 H BUN Creatinine 0.4 L Glucose 153 H POC Glucose 140 H Lactic Acid Calcium Phosphorus Magnesium Ferritin Lactate Dehydrogenase C-Reactive Protein NT-Pro-B Natriuret Pep Total Protein Albumin Triglycerides Arterial Blood Glucose Urine pH Ur Specific [place] Coronavirus (PCR) 04/04/21 04/04/21 04/04/21 05:16 11:39 17:22 WBC RBC Hgb Hct MCV MCHC RDW Plt Count Lymph % (Auto) [place] % (Auto) Lymph # (Auto) [place] # (Auto) Seg Neutrophils % Seg Neuts % (Manual) Lymphocytes % (Manual) Monocytes % (Manual) Nucleated RBC % Seg Neutrophils # Seg Neutrophils # Man Lymphocytes # (Manual) Monocytes # (Manual) PT INR APTT D-Dimer Heparin Anti-Xa Level ABG pH POC ABG pCO2 POC ABG pO2 ABG pO2 ABG HCO3 ABG O2 Saturation ABG Base Excess ABG Hemoglobin ABG Oxyhemoglobin ABG Sodium ABG Potassium ABG Glucose Oxyhemoglobin Sodium Potassium Chloride Carbon Dioxide BUN Creatinine Glucose POC Glucose 152 H 154 H 198 H Lactic Acid Calcium Phosphorus Magnesium Ferritin Lactate Dehydrogenase C-Reactive Protein NT-Pro-B Natriuret Pep Total Protein Albumin Triglycerides Arterial Blood Glucose Urine pH Ur Specific [place] Coronavirus (PCR) 04/04/21 04/04/21 04/05/21 20:14 23:16 04:15 WBC RBC 3.21 L Hgb 10.0 L Hct 30.3 L MCV MCHC RDW 16.4 H Plt Count Lymph % (Auto) [place] % (Auto) Lymph # (Auto) [place] # (Auto) Seg Neutrophils % Seg Neuts % (Manual) Lymphocytes % (Manual) Monocytes % (Manual) Nucleated RBC % Seg Neutrophils # Seg Neutrophils # Man Lymphocytes # (Manual) Monocytes # (Manual) PT INR APTT D-Dimer Heparin Anti-Xa Level ABG pH POC ABG pCO2 POC ABG pO2 ABG pO2 ABG HCO3 ABG O2 Saturation ABG Base Excess ABG Hemoglobin ABG Oxyhemoglobin ABG Sodium ABG Potassium ABG Glucose Oxyhemoglobin Sodium Potassium Chloride Carbon Dioxide BUN Creatinine Glucose POC Glucose 161 H 139 H Lactic Acid Calcium Phosphorus Magnesium Ferritin Lactate Dehydrogenase C-Reactive Protein NT-Pro-B Natriuret Pep Total Protein Albumin Triglycerides Arterial Blood Glucose Urine pH Ur Specific [place] Coronavirus (PCR) 04/05/21 04/05/21 04/05/21 04:15 05:34 12:09 WBC RBC Hgb Hct MCV MCHC RDW Plt Count Lymph % (Auto) [place] % (Auto) Lymph # (Auto) [place] # (Auto) Seg Neutrophils % Seg Neuts % (Manual) Lymphocytes % (Manual) Monocytes % (Manual) Nucleated RBC % Seg Neutrophils # Seg Neutrophils # Man Lymphocytes # (Manual) Monocytes # (Manual) PT INR APTT D-Dimer Heparin Anti-Xa Level ABG pH POC ABG pCO2 POC ABG pO2 ABG pO2 ABG HCO3 ABG O2 Saturation ABG Base Excess ABG Hemoglobin ABG Oxyhemoglobin ABG Sodium ABG Potassium ABG Glucose Oxyhemoglobin Sodium Potassium Chloride 97.6 L Carbon Dioxide 32 H BUN Creatinine 0.5 L Glucose 147 H POC Glucose 145 H 173 H Lactic Acid Calcium Phosphorus Magnesium Ferritin Lactate Dehydrogenase C-Reactive Protein NT-Pro-B Natriuret Pep Total Protein Albumin Triglycerides Arterial Blood Glucose Urine pH Ur Specific [place] Coronavirus (PCR) 04/05/21 04/05/21 04/05/21 17:35 21:07 23:15 WBC RBC Hgb Hct MCV MCHC RDW Plt Count Lymph % (Auto) [place] % (Auto) Lymph # (Auto) [place] # (Auto) Seg Neutrophils % Seg Neuts % (Manual) Lymphocytes % (Manual) Monocytes % (Manual) Nucleated RBC % Seg Neutrophils # Seg Neutrophils # Man Lymphocytes # (Manual) Monocytes # (Manual) PT INR APTT D-Dimer Heparin Anti-Xa Level ABG pH POC ABG pCO2 POC ABG pO2 ABG pO2 ABG HCO3 ABG O2 Saturation ABG Base Excess ABG Hemoglobin ABG Oxyhemoglobin ABG Sodium ABG Potassium ABG Glucose Oxyhemoglobin Sodium Potassium Chloride Carbon Dioxide BUN Creatinine Glucose POC Glucose 143 H 157 H 171 H Lactic Acid Calcium Phosphorus Magnesium Ferritin Lactate Dehydrogenase C-Reactive Protein NT-Pro-B Natriuret Pep Total Protein Albumin Triglycerides Arterial Blood Glucose Urine pH Ur Specific [place] Coronavirus (PCR) 04/06/21 04/06/21 04/06/21 04:49 05:14 11:42 WBC RBC Hgb Hct MCV MCHC RDW Plt Count Lymph % (Auto) [place] % (Auto) Lymph # (Auto) [place] # (Auto) Seg Neutrophils % Seg Neuts % (Manual) Lymphocytes % (Manual) Monocytes % (Manual) Nucleated RBC % Seg Neutrophils # Seg Neutrophils # Man Lymphocytes # (Manual) Monocytes # (Manual) PT INR APTT D-Dimer Heparin Anti-Xa Level ABG pH POC ABG pCO2 57.4 H POC ABG pO2 55.1 L ABG pO2 ABG HCO3 ABG O2 Saturation ABG Base Excess ABG Hemoglobin 11.5 L ABG Oxyhemoglobin 87.5 L ABG Sodium ABG Potassium ABG Glucose Oxyhemoglobin Sodium Potassium Chloride Carbon Dioxide BUN Creatinine Glucose POC Glucose 145 H 171 H Lactic Acid Calcium Phosphorus Magnesium Ferritin Lactate Dehydrogenase C-Reactive Protein NT-Pro-B Natriuret Pep Total Protein Albumin Triglycerides Arterial Blood Glucose Urine pH Ur Specific [place] Coronavirus (PCR) 04/06/21 04/06/21 04/06/21 11:50 15:36 15:36 WBC RBC Hgb 10.4 L Hct 32.5 L MCV MCHC RDW Plt Count 444 H Lymph % (Auto) [place] % (Auto) Lymph # (Auto) [place] # (Auto) Seg Neutrophils % Seg Neuts % (Manual) Lymphocytes % (Manual) Monocytes % (Manual) Nucleated RBC % Seg Neutrophils # Seg Neutrophils # Man Lymphocytes # (Manual) Monocytes # (Manual) PT INR APTT 37.1 H D-Dimer Heparin Anti-Xa Level ABG pH 7.341 L POC ABG pCO2 POC ABG pO2 ABG pO2 108.9 H ABG HCO3 38.9 H ABG O2 Saturation ABG Base Excess 10.6 H ABG Hemoglobin 11.5 L ABG Oxyhemoglobin ABG Sodium ABG Potassium ABG Glucose Oxyhemoglobin Sodium Potassium Chloride Carbon Dioxide BUN Creatinine Glucose POC Glucose Lactic Acid Calcium Phosphorus Magnesium Ferritin Lactate Dehydrogenase C-Reactive Protein NT-Pro-B Natriuret Pep Total Protein Albumin Triglycerides Arterial Blood Glucose Urine pH Ur Specific [place] Coronavirus (PCR) 04/06/21 04/07/21 04/07/21 17:57 00:30 00:32 WBC RBC Hgb Hct MCV MCHC RDW Plt Count Lymph % (Auto) [place] % (Auto) Lymph # (Auto) [place] # (Auto) Seg Neutrophils % Seg Neuts % (Manual) Lymphocytes % (Manual) Monocytes % (Manual) Nucleated RBC % Seg Neutrophils # Seg Neutrophils # Man Lymphocytes # (Manual) Monocytes # (Manual) PT INR APTT D-Dimer Heparin Anti-Xa Level < 0.10 L ABG pH POC ABG pCO2 POC ABG pO2 ABG pO2 ABG HCO3 ABG O2 Saturation ABG Base Excess ABG Hemoglobin ABG Oxyhemoglobin ABG Sodium ABG Potassium ABG Glucose Oxyhemoglobin Sodium Potassium Chloride Carbon Dioxide BUN Creatinine Glucose POC Glucose 151 H 149 H Lactic Acid Calcium Phosphorus Magnesium Ferritin Lactate Dehydrogenase C-Reactive Protein NT-Pro-B Natriuret Pep Total Protein Albumin Triglycerides Arterial Blood Glucose Urine pH Ur Specific [place] Coronavirus (PCR) 04/07/21 04/07/21 04/07/21 05:34 06:08 06:08 WBC RBC 3.20 L Hgb 9.6 L Hct 29.8 L MCV MCHC RDW 16.0 H Plt Count 455 H Lymph % (Auto) [place] % (Auto) Lymph # (Auto) [place] # (Auto) Seg Neutrophils % Seg Neuts % (Manual) Lymphocytes % (Manual) Monocytes % (Manual) Nucleated RBC % Seg Neutrophils # Seg Neutrophils # Man Lymphocytes # (Manual) Monocytes # (Manual) PT INR APTT D-Dimer Heparin Anti-Xa Level ABG pH POC ABG pCO2 POC ABG pO2 ABG pO2 ABG HCO3 ABG O2 Saturation ABG Base Excess ABG Hemoglobin ABG Oxyhemoglobin ABG Sodium ABG Potassium ABG Glucose Oxyhemoglobin Sodium Potassium Chloride Carbon Dioxide 35 H BUN Creatinine 0.5 L Glucose 216 H POC Glucose 182 H Lactic Acid Calcium Phosphorus Magnesium Ferritin Lactate Dehydrogenase C-Reactive Protein NT-Pro-B Natriuret Pep Total Protein Albumin Triglycerides Arterial Blood Glucose Urine pH Ur Specific [place] Coronavirus (PCR) 04/07/21 04/07/21 04/07/21 07:55 11:57 17:12 WBC RBC Hgb Hct MCV MCHC RDW Plt Count Lymph % (Auto) [place] % (Auto) Lymph # (Auto) [place] # (Auto) Seg Neutrophils % Seg Neuts % (Manual) Lymphocytes % (Manual) Monocytes % (Manual) Nucleated RBC % Seg Neutrophils # Seg Neutrophils # Man Lymphocytes # (Manual) Monocytes # (Manual) PT INR APTT D-Dimer Heparin Anti-Xa Level < 0.10 L ABG pH POC ABG pCO2 POC ABG pO2 ABG pO2 ABG HCO3 ABG O2 Saturation ABG Base Excess ABG Hemoglobin ABG Oxyhemoglobin ABG Sodium ABG Potassium ABG Glucose Oxyhemoglobin Sodium Potassium Chloride Carbon Dioxide BUN Creatinine Glucose POC Glucose 182 H 165 H Lactic Acid Calcium Phosphorus Magnesium Ferritin Lactate Dehydrogenase C-Reactive Protein NT-Pro-B Natriuret Pep Total Protein Albumin Triglycerides Arterial Blood Glucose Urine pH Ur Specific [place] Coronavirus (PCR) 04/07/21 04/08/21 04/08/21 19:55 00:16 03:57 WBC RBC Hgb Hct MCV MCHC RDW Plt Count Lymph % (Auto) [place] % (Auto) Lymph # (Auto) [place] # (Auto) Seg Neutrophils % Seg Neuts % (Manual) Lymphocytes % (Manual) Monocytes % (Manual) Nucleated RBC % Seg Neutrophils # Seg Neutrophils # Man Lymphocytes # (Manual) Monocytes # (Manual) PT INR APTT D-Dimer Heparin Anti-Xa Level < 0.10 L ABG pH POC ABG pCO2 POC ABG pO2 ABG pO2 ABG HCO3 ABG O2 Saturation ABG Base Excess ABG Hemoglobin ABG Oxyhemoglobin ABG Sodium ABG Potassium ABG Glucose Oxyhemoglobin Sodium Potassium 5.8 H Chloride 95.5 L Carbon Dioxide 37 H BUN Creatinine 0.5 L Glucose 161 H POC Glucose 175 H Lactic Acid Calcium Phosphorus Magnesium Ferritin Lactate Dehydrogenase C-Reactive Protein NT-Pro-B Natriuret Pep Total Protein Albumin Triglycerides Arterial Blood Glucose Urine pH Ur Specific [place] Coronavirus (PCR) 04/08/21 04/08/21 04/08/21 04:00 05:43 09:26 WBC RBC 3.25 L Hgb 9.9 L Hct 30.8 L MCV 95 H MCHC RDW 16.0 H Plt Count 487 H Lymph % (Auto) [place] % (Auto) Lymph # (Auto) [place] # (Auto) Seg Neutrophils % Seg Neuts % (Manual) Lymphocytes % (Manual) Monocytes % (Manual) Nucleated RBC % Seg Neutrophils # Seg Neutrophils # Man Lymphocytes # (Manual) Monocytes # (Manual) PT INR APTT D-Dimer Heparin Anti-Xa Level ABG pH POC ABG pCO2 POC ABG pO2 ABG pO2 ABG HCO3 ABG O2 Saturation ABG Base Excess ABG Hemoglobin ABG Oxyhemoglobin ABG Sodium ABG Potassium ABG Glucose Oxyhemoglobin Sodium Potassium Chloride Carbon Dioxide BUN Creatinine Glucose POC Glucose 162 H 164 H Lactic Acid Calcium Phosphorus Magnesium Ferritin Lactate Dehydrogenase C-Reactive Protein NT-Pro-B Natriuret Pep Total Protein Albumin Triglycerides Arterial Blood Glucose Urine pH Ur Specific [place] Coronavirus (PCR) 04/08/21 04/08/21 04/08/21 11:53 17:19 20:35 WBC RBC Hgb Hct MCV MCHC RDW Plt Count Lymph % (Auto) [place] % (Auto) Lymph # (Auto) [place] # (Auto) Seg Neutrophils % Seg Neuts % (Manual) Lymphocytes % (Manual) Monocytes % (Manual) Nucleated RBC % Seg Neutrophils # Seg Neutrophils # Man Lymphocytes # (Manual) Monocytes # (Manual) PT INR APTT D-Dimer Heparin Anti-Xa Level ABG pH POC ABG pCO2 POC ABG pO2 ABG pO2 ABG HCO3 ABG O2 Saturation ABG Base Excess ABG Hemoglobin ABG Oxyhemoglobin ABG Sodium ABG Potassium ABG Glucose Oxyhemoglobin Sodium Potassium Chloride Carbon Dioxide BUN Creatinine Glucose POC Glucose 170 H 157 H 190 H Lactic Acid Calcium Phosphorus Magnesium Ferritin Lactate Dehydrogenase C-Reactive Protein NT-Pro-B Natriuret Pep Total Protein Albumin Triglycerides Arterial Blood Glucose Urine pH Ur Specific [place] Coronavirus (PCR) 04/08/21 04/09/21 04/09/21 23:52 04:21 04:21 WBC 11.4 H RBC 2.97 L Hgb 8.9 L Hct 27.8 L MCV MCHC RDW 15.8 H Plt Count 485 H Lymph % (Auto) [place] % (Auto) Lymph # (Auto) [place] # (Auto) Seg Neutrophils % Seg Neuts % (Manual) Lymphocytes % (Manual) Monocytes % (Manual) Nucleated RBC % Seg Neutrophils # Seg Neutrophils # Man Lymphocytes # (Manual) Monocytes # (Manual) PT INR APTT D-Dimer Heparin Anti-Xa Level ABG pH POC ABG pCO2 POC ABG pO2 ABG pO2 ABG HCO3 ABG O2 Saturation ABG Base Excess ABG Hemoglobin ABG Oxyhemoglobin ABG Sodium ABG Potassium ABG Glucose Oxyhemoglobin Sodium Potassium Chloride 97.1 L Carbon Dioxide 40 H BUN 21 H Creatinine 0.5 L Glucose 149 H POC Glucose 170 H Lactic Acid Calcium Phosphorus 1.90 L D Magnesium Ferritin Lactate Dehydrogenase C-Reactive Protein NT-Pro-B Natriuret Pep Total Protein Albumin Triglycerides Arterial Blood Glucose Urine pH Ur Specific [place] Coronavirus (PCR) 04/09/21 04/09/21 04/09/21 05:27 11:55 17:11 WBC RBC Hgb Hct MCV MCHC RDW Plt Count Lymph % (Auto) [place] % (Auto) Lymph # (Auto) [place] # (Auto) Seg Neutrophils % Seg Neuts % (Manual) Lymphocytes % (Manual) Monocytes % (Manual) Nucleated RBC % Seg Neutrophils # Seg Neutrophils # Man Lymphocytes # (Manual) Monocytes # (Manual) PT INR APTT D-Dimer Heparin Anti-Xa Level ABG pH POC ABG pCO2 POC ABG pO2 ABG pO2 ABG HCO3 ABG O2 Saturation ABG Base Excess ABG Hemoglobin ABG Oxyhemoglobin ABG Sodium ABG Potassium ABG Glucose Oxyhemoglobin Sodium Potassium Chloride Carbon Dioxide BUN Creatinine Glucose POC Glucose 144 H 190 H 163 H Lactic Acid Calcium Phosphorus Magnesium Ferritin Lactate Dehydrogenase C-Reactive Protein NT-Pro-B Natriuret Pep Total Protein Albumin Triglycerides Arterial Blood Glucose Urine pH Ur Specific [place] Coronavirus (PCR) 04/09/21 04/09/21 04/09/21 20:10 21:12 23:33 WBC RBC Hgb Hct MCV MCHC RDW Plt Count Lymph % (Auto) [place] % (Auto) Lymph # (Auto) [place] # (Auto) Seg Neutrophils % Seg Neuts % (Manual) Lymphocytes % (Manual) Monocytes % (Manual) Nucleated RBC % Seg Neutrophils # Seg Neutrophils # Man Lymphocytes # (Manual) Monocytes # (Manual) PT INR APTT D-Dimer Heparin Anti-Xa Level ABG pH POC ABG pCO2 POC ABG pO2 ABG pO2 68.1 L ABG HCO3 41.3 H ABG O2 Saturation ABG Base Excess 14.6 H ABG Hemoglobin 10.2 L ABG Oxyhemoglobin ABG Sodium ABG Potassium ABG Glucose Oxyhemoglobin 94.7 L Sodium Potassium Chloride Carbon Dioxide BUN Creatinine Glucose POC Glucose 163 H 164 H Lactic Acid Calcium Phosphorus Magnesium Ferritin Lactate Dehydrogenase C-Reactive Protein NT-Pro-B Natriuret Pep Total Protein Albumin Triglycerides Arterial Blood Glucose Urine pH Ur Specific [place] Coronavirus (PCR) 04/10/21 04/10/21 04/10/21 05:26 11:41 13:00 WBC RBC 3.09 L Hgb 9.3 L Hct 28.3 L MCV MCHC RDW 15.8 H Plt Count 480 H Lymph % (Auto) [place] % (Auto) Lymph # (Auto) [place] # (Auto) Seg Neutrophils % Seg Neuts % (Manual) Lymphocytes % (Manual) Monocytes % (Manual) Nucleated RBC % Seg Neutrophils # Seg Neutrophils # Man Lymphocytes # (Manual) Monocytes # (Manual) PT INR APTT D-Dimer Heparin Anti-Xa Level ABG pH POC ABG pCO2 POC ABG pO2 ABG pO2 ABG HCO3 ABG O2 Saturation ABG Base Excess ABG Hemoglobin ABG Oxyhemoglobin ABG Sodium ABG Potassium ABG Glucose Oxyhemoglobin Sodium Potassium Chloride Carbon Dioxide BUN Creatinine Glucose POC Glucose 172 H 150 H Lactic Acid Calcium Phosphorus Magnesium Ferritin Lactate Dehydrogenase C-Reactive Protein NT-Pro-B Natriuret Pep Total Protein Albumin Triglycerides Arterial Blood Glucose Urine pH Ur Specific [place] Coronavirus (PCR) 04/10/21 04/10/21 04/10/21 13:00 17:46 21:37 WBC RBC Hgb Hct MCV MCHC RDW Plt Count Lymph % (Auto) [place] % (Auto) Lymph # (Auto) [place] # (Auto) Seg Neutrophils % Seg Neuts % (Manual) Lymphocytes % (Manual) Monocytes % (Manual) Nucleated RBC % Seg Neutrophils # Seg Neutrophils # Man Lymphocytes # (Manual) Monocytes # (Manual) PT INR APTT D-Dimer Heparin Anti-Xa Level ABG pH POC ABG pCO2 POC ABG pO2 ABG pO2 ABG HCO3 ABG O2 Saturation ABG Base Excess ABG Hemoglobin ABG Oxyhemoglobin ABG Sodium ABG Potassium ABG Glucose Oxyhemoglobin Sodium Potassium Chloride 96.4 L Carbon Dioxide 34 H BUN Creatinine 0.5 L Glucose 165 H POC Glucose 165 H 166 H Lactic Acid Calcium Phosphorus Magnesium Ferritin Lactate Dehydrogenase C-Reactive Protein NT-Pro-B Natriuret Pep Total Protein Albumin Triglycerides Arterial Blood Glucose Urine pH Ur Specific [place] Coronavirus (PCR) 04/10/21 04/11/21 04/11/21 23:56 04:30 05:39 WBC 11.5 H RBC 3.02 L Hgb 8.9 L Hct 27.8 L MCV MCHC RDW 16.0 H Plt Count 505 H Lymph % (Auto) [place] % (Auto) Lymph # (Auto) [place] # (Auto) Seg Neutrophils % Seg Neuts % (Manual) Lymphocytes % (Manual) Monocytes % (Manual) Nucleated RBC % Seg Neutrophils # Seg Neutrophils # Man Lymphocytes # (Manual) Monocytes # (Manual) PT INR APTT D-Dimer Heparin Anti-Xa Level ABG pH POC ABG pCO2 POC ABG pO2 ABG pO2 ABG HCO3 ABG O2 Saturation ABG Base Excess ABG Hemoglobin ABG Oxyhemoglobin ABG Sodium ABG Potassium ABG Glucose Oxyhemoglobin Sodium Potassium Chloride Carbon Dioxide BUN Creatinine Glucose POC Glucose 156 H 164 H Lactic Acid Calcium Phosphorus Magnesium Ferritin Lactate Dehydrogenase C-Reactive Protein NT-Pro-B Natriuret Pep Total Protein Albumin Triglycerides Arterial Blood Glucose Urine pH Ur Specific [place] Coronavirus (PCR) 04/11/21 04/11/21 04/11/21 06:47 06:47 11:29 WBC RBC 3.35 L Hgb 9.8 L Hct 30.7 L MCV MCHC RDW 16.3 H Plt Count 520 H Lymph % (Auto) [place] % (Auto) Lymph # (Auto) [place] # (Auto) Seg Neutrophils % Seg Neuts % (Manual) 76.0 H Lymphocytes % (Manual) 10.0 L Monocytes % (Manual) Nucleated RBC % Seg Neutrophils # Seg Neutrophils # Man 8.3 H Lymphocytes # (Manual) 1.1 L Monocytes # (Manual) PT INR APTT D-Dimer Heparin Anti-Xa Level ABG pH POC ABG pCO2 POC ABG pO2 ABG pO2 ABG HCO3 ABG O2 Saturation ABG Base Excess ABG Hemoglobin ABG Oxyhemoglobin ABG Sodium ABG Potassium ABG Glucose Oxyhemoglobin Sodium Potassium Chloride 97.7 L Carbon Dioxide 34 H BUN Creatinine 0.4 L Glucose 178 H POC Glucose 170 H Lactic Acid Calcium Phosphorus Magnesium Ferritin Lactate Dehydrogenase C-Reactive Protein NT-Pro-B Natriuret Pep Total Protein Albumin Triglycerides Arterial Blood Glucose Urine pH Ur Specific [place] Coronavirus (PCR) 04/11/21 04/11/21 04/11/21 18:17 18:17 18:17 WBC RBC 3.22 L Hgb 9.5 L Hct 29.8 L MCV MCHC RDW 16.0 H Plt Count Lymph % (Auto) [place] % (Auto) Lymph # (Auto) [place] # (Auto) Seg Neutrophils % Seg Neuts % (Manual) Lymphocytes % (Manual) Monocytes % (Manual) Nucleated RBC % Seg Neutrophils # Seg Neutrophils # Man Lymphocytes # (Manual) Monocytes # (Manual) PT INR APTT 61.1 H* D-Dimer Heparin Anti-Xa Level ABG pH POC ABG pCO2 POC ABG pO2 ABG pO2 ABG HCO3 ABG O2 Saturation ABG Base Excess ABG Hemoglobin ABG Oxyhemoglobin ABG Sodium ABG Potassium ABG Glucose Oxyhemoglobin Sodium Potassium Chloride Carbon Dioxide BUN Creatinine 0.3 L Glucose POC Glucose Lactic Acid Calcium Phosphorus Magnesium Ferritin Lactate Dehydrogenase C-Reactive Protein NT-Pro-B Natriuret Pep Total Protein Albumin Triglycerides Arterial Blood Glucose Urine pH Ur Specific [place] Coronavirus (PCR) 04/11/21 04/12/21 04/12/21 18:25 00:19 05:11 WBC RBC 2.92 L Hgb 8.6 L Hct 26.9 L MCV MCHC RDW 16.3 H Plt Count 460 H Lymph % (Auto) [place] % (Auto) Lymph # (Auto) [place] # (Auto) Seg Neutrophils % Seg Neuts % (Manual) Lymphocytes % (Manual) Monocytes % (Manual) Nucleated RBC % Seg Neutrophils # Seg Neutrophils # Man Lymphocytes # (Manual) Monocytes # (Manual) PT INR APTT D-Dimer Heparin Anti-Xa Level ABG pH POC ABG pCO2 POC ABG pO2 ABG pO2 ABG HCO3 ABG O2 Saturation ABG Base Excess ABG Hemoglobin ABG Oxyhemoglobin ABG Sodium ABG Potassium ABG Glucose Oxyhemoglobin Sodium Potassium Chloride Carbon Dioxide BUN Creatinine Glucose POC Glucose 167 H 128 H Lactic Acid Calcium Phosphorus Magnesium Ferritin Lactate Dehydrogenase C-Reactive Protein NT-Pro-B Natriuret Pep Total Protein Albumin Triglycerides Arterial Blood Glucose Urine pH Ur Specific [place] Coronavirus (PCR) 04/12/21 04/12/21 04/12/21 05:11 05:11 06:23 WBC RBC Hgb Hct MCV MCHC RDW Plt Count Lymph % (Auto) [place] % (Auto) Lymph # (Auto) [place] # (Auto) Seg Neutrophils % Seg Neuts % (Manual) Lymphocytes % (Manual) Monocytes % (Manual) Nucleated RBC % Seg Neutrophils # Seg Neutrophils # Man Lymphocytes # (Manual) Monocytes # (Manual) PT INR APTT D-Dimer Heparin Anti-Xa Level 1.03 H ABG pH POC ABG pCO2 POC ABG pO2 ABG pO2 ABG HCO3 ABG O2 Saturation ABG Base Excess ABG Hemoglobin ABG Oxyhemoglobin ABG Sodium ABG Potassium ABG Glucose Oxyhemoglobin Sodium Potassium Chloride Carbon Dioxide 34 H BUN Creatinine 0.3 L Glucose 153 H POC Glucose 162 H Lactic Acid Calcium Phosphorus Magnesium Ferritin Lactate Dehydrogenase C-Reactive Protein NT-Pro-B Natriuret Pep Total Protein Albumin Triglycerides Arterial Blood Glucose Urine pH Ur Specific [place] Coronavirus (PCR) 04/12/21 04/12/21 04/12/21 09:45 11:08 15:56 WBC RBC Hgb Hct MCV MCHC RDW Plt Count Lymph % (Auto) [place] % (Auto) Lymph # (Auto) [place] # (Auto) Seg Neutrophils % Seg Neuts % (Manual) Lymphocytes % (Manual) Monocytes % (Manual) Nucleated RBC % Seg Neutrophils # Seg Neutrophils # Man Lymphocytes # (Manual) Monocytes # (Manual) PT INR APTT D-Dimer Heparin Anti-Xa Level ABG pH POC ABG pCO2 POC ABG pO2 ABG pO2 70.8 L ABG HCO3 41.0 H ABG O2 Saturation ABG Base Excess 13.7 H ABG Hemoglobin 8.3 L ABG Oxyhemoglobin ABG Sodium ABG Potassium ABG Glucose Oxyhemoglobin 94.0 L Sodium Potassium Chloride Carbon Dioxide BUN Creatinine Glucose POC Glucose 174 H 146 H Lactic Acid Calcium Phosphorus Magnesium Ferritin Lactate Dehydrogenase C-Reactive Protein NT-Pro-B Natriuret Pep Total Protein Albumin Triglycerides Arterial Blood Glucose Urine pH Ur Specific [place] Coronavirus (PCR) 04/12/21 04/12/21 04/13/21 21:55 23:25 04:34 WBC 12.5 H RBC 2.97 L Hgb 8.9 L Hct 27.3 L MCV MCHC RDW 16.4 H Plt Count 470 H Lymph % (Auto) [place] % (Auto) Lymph # (Auto) [place] # (Auto) Seg Neutrophils % Seg Neuts % (Manual) Lymphocytes % (Manual) Monocytes % (Manual) Nucleated RBC % Seg Neutrophils # Seg Neutrophils # Man Lymphocytes # (Manual) Monocytes # (Manual) PT INR APTT D-Dimer Heparin Anti-Xa Level ABG pH POC ABG pCO2 POC ABG pO2 ABG pO2 ABG HCO3 ABG O2 Saturation ABG Base Excess ABG Hemoglobin ABG Oxyhemoglobin ABG Sodium ABG Potassium ABG Glucose Oxyhemoglobin Sodium Potassium Chloride Carbon Dioxide BUN Creatinine Glucose POC Glucose 142 H 170 H Lactic Acid Calcium Phosphorus Magnesium Ferritin Lactate Dehydrogenase C-Reactive Protein NT-Pro-B Natriuret Pep Total Protein Albumin Triglycerides Arterial Blood Glucose Urine pH Ur Specific [place] Coronavirus (PCR) 04/13/21 04/13/21 04/13/21 04:34 05:17 11:14 WBC RBC Hgb Hct MCV MCHC RDW Plt Count Lymph % (Auto) [place] % (Auto) Lymph # (Auto) [place] # (Auto) Seg Neutrophils % Seg Neuts % (Manual) Lymphocytes % (Manual) Monocytes % (Manual) Nucleated RBC % Seg Neutrophils # Seg Neutrophils # Man Lymphocytes # (Manual) Monocytes # (Manual) PT INR APTT D-Dimer Heparin Anti-Xa Level ABG pH POC ABG pCO2 POC ABG pO2 ABG pO2 ABG HCO3 ABG O2 Saturation ABG Base Excess ABG Hemoglobin ABG Oxyhemoglobin ABG Sodium ABG Potassium ABG Glucose Oxyhemoglobin Sodium Potassium Chloride 96.6 L Carbon Dioxide 41 H* D BUN Creatinine 0.3 L Glucose 171 H POC Glucose 141 H 149 H Lactic Acid Calcium Phosphorus Magnesium Ferritin Lactate Dehydrogenase C-Reactive Protein NT-Pro-B Natriuret Pep Total Protein Albumin Triglycerides Arterial Blood Glucose Urine pH Ur Specific [place] Coronavirus (PCR) 04/13/21 04/13/21 04/14/21 15:51 23:35 04:32 WBC 13.8 H RBC 2.64 L Hgb 8.0 L Hct 24.1 L MCV MCHC RDW 16.1 H Plt Count Lymph % (Auto) [place] % (Auto) Lymph # (Auto) [place] # (Auto) Seg Neutrophils % Seg Neuts % (Manual) Lymphocytes % (Manual) Monocytes % (Manual) Nucleated RBC % Seg Neutrophils # Seg Neutrophils # Man Lymphocytes # (Manual) Monocytes # (Manual) PT INR APTT D-Dimer Heparin Anti-Xa Level ABG pH POC ABG pCO2 POC ABG pO2 ABG pO2 ABG HCO3 ABG O2 Saturation ABG Base Excess ABG Hemoglobin ABG Oxyhemoglobin ABG Sodium ABG Potassium ABG Glucose Oxyhemoglobin Sodium Potassium Chloride Carbon Dioxide BUN Creatinine Glucose POC Glucose 136 H 167 H Lactic Acid Calcium Phosphorus Magnesium Ferritin Lactate Dehydrogenase C-Reactive Protein NT-Pro-B Natriuret Pep Total Protein Albumin Triglycerides Arterial Blood Glucose Urine pH Ur Specific [place] Coronavirus (PCR) 04/14/21 04/14/21 04/14/21 04:32 05:18 11:03 WBC RBC Hgb Hct MCV MCHC RDW Plt Count Lymph % (Auto) [place] % (Auto) Lymph # (Auto) [place] # (Auto) Seg Neutrophils % Seg Neuts % (Manual) Lymphocytes % (Manual) Monocytes % (Manual) Nucleated RBC % Seg Neutrophils # Seg Neutrophils # Man Lymphocytes # (Manual) Monocytes # (Manual) PT INR APTT D-Dimer Heparin Anti-Xa Level ABG pH POC ABG pCO2 POC ABG pO2 ABG pO2 ABG HCO3 ABG O2 Saturation ABG Base Excess ABG Hemoglobin ABG Oxyhemoglobin ABG Sodium ABG Potassium ABG Glucose Oxyhemoglobin Sodium Potassium Chloride 95.5 L Carbon Dioxide 38 H BUN Creatinine 0.4 L Glucose 141 H POC Glucose 140 H 143 H Lactic Acid Calcium Phosphorus Magnesium Ferritin Lactate Dehydrogenase C-Reactive Protein NT-Pro-B Natriuret Pep Total Protein Albumin Triglycerides Arterial Blood Glucose Urine pH Ur Specific [place] Coronavirus (PCR) 04/14/21 04/14/21 04/14/21 16:38 23:46 Unknown WBC RBC Hgb Hct MCV MCHC RDW Plt Count Lymph % (Auto) [place] % (Auto) Lymph # (Auto) [place] # (Auto) Seg Neutrophils % Seg Neuts % (Manual) Lymphocytes % (Manual) Monocytes % (Manual) Nucleated RBC % Seg Neutrophils # Seg Neutrophils # Man Lymphocytes # (Manual) Monocytes # (Manual) PT INR APTT D-Dimer Heparin Anti-Xa Level ABG pH POC ABG pCO2 POC ABG pO2 ABG pO2 ABG HCO3 ABG O2 Saturation ABG Base Excess ABG Hemoglobin ABG Oxyhemoglobin ABG Sodium ABG Potassium ABG Glucose Oxyhemoglobin Sodium Potassium Chloride Carbon Dioxide BUN Creatinine Glucose POC Glucose 157 H 155 H Lactic Acid Calcium Phosphorus Magnesium Ferritin Lactate Dehydrogenase C-Reactive Protein NT-Pro-B Natriuret Pep Total Protein Albumin Triglycerides Arterial Blood Glucose Urine pH 8.0 H Ur Specific [place] Coronavirus (PCR) 04/15/21 04/15/21 04/15/21 04:44 04:44 05:52 WBC 15.8 H RBC 2.96 L Hgb 8.9 L Hct 27.1 L MCV MCHC RDW 16.5 H Plt Count 507 H Lymph % (Auto) [place] % (Auto) Lymph # (Auto) [place] # (Auto) Seg Neutrophils % Seg Neuts % (Manual) Lymphocytes % (Manual) Monocytes % (Manual) Nucleated RBC % Seg Neutrophils # Seg Neutrophils # Man Lymphocytes # (Manual) Monocytes # (Manual) PT INR APTT D-Dimer Heparin Anti-Xa Level ABG pH POC ABG pCO2 POC ABG pO2 ABG pO2 ABG HCO3 ABG O2 Saturation ABG Base Excess ABG Hemoglobin ABG Oxyhemoglobin ABG Sodium ABG Potassium ABG Glucose Oxyhemoglobin Sodium Potassium Chloride 96.9 L Carbon Dioxide 38 H BUN Creatinine 0.4 L Glucose 163 H POC Glucose 167 H Lactic Acid Calcium Phosphorus Magnesium Ferritin Lactate Dehydrogenase C-Reactive Protein NT-Pro-B Natriuret Pep Total Protein Albumin Triglycerides Arterial Blood Glucose Urine pH Ur Specific [place] Coronavirus (PCR) 04/15/21 04/15/21 04/15/21 11:35 17:20 18:10 WBC RBC Hgb Hct MCV MCHC RDW Plt Count Lymph % (Auto) [place] % (Auto) Lymph # (Auto) [place] # (Auto) Seg Neutrophils % Seg Neuts % (Manual) Lymphocytes % (Manual) Monocytes % (Manual) Nucleated RBC % Seg Neutrophils # Seg Neutrophils # Man Lymphocytes # (Manual) Monocytes # (Manual) PT INR APTT D-Dimer Heparin Anti-Xa Level ABG pH 7.477 H POC ABG pCO2 POC ABG pO2 ABG pO2 ABG HCO3 40.6 H ABG O2 Saturation ABG Base Excess 15.2 H ABG Hemoglobin 9.0 L ABG Oxyhemoglobin ABG Sodium ABG Potassium ABG Glucose Oxyhemoglobin 94.7 L Sodium Potassium Chloride Carbon Dioxide BUN Creatinine Glucose POC Glucose 179 H 165 H Lactic Acid Calcium Phosphorus Magnesium Ferritin Lactate Dehydrogenase C-Reactive Protein NT-Pro-B Natriuret Pep Total Protein Albumin Triglycerides Arterial Blood Glucose Urine pH Ur Specific [place] Coronavirus (PCR) 04/15/21 04/16/21 04/16/21 23:39 04:33 04:33 WBC 13.1 H RBC 3.26 L Hgb 9.5 L Hct 30.2 L MCV MCHC 31 L RDW 16.2 H Plt Count Lymph % (Auto) [place] % (Auto) Lymph # (Auto) [place] # (Auto) Seg Neutrophils % Seg Neuts % (Manual) Lymphocytes % (Manual) Monocytes % (Manual) Nucleated RBC % Seg Neutrophils # Seg Neutrophils # Man Lymphocytes # (Manual) Monocytes # (Manual) PT INR APTT D-Dimer Heparin Anti-Xa Level ABG pH POC ABG pCO2 POC ABG pO2 ABG pO2 ABG HCO3 ABG O2 Saturation ABG Base Excess ABG Hemoglobin ABG Oxyhemoglobin ABG Sodium ABG Potassium ABG Glucose Oxyhemoglobin Sodium Potassium Chloride 95.8 L Carbon Dioxide 34 H BUN 24 H Creatinine 0.4 L Glucose 153 H POC Glucose 155 H Lactic Acid Calcium Phosphorus Magnesium 2.40 H Ferritin Lactate Dehydrogenase C-Reactive Protein NT-Pro-B Natriuret Pep Total Protein Albumin Triglycerides Arterial Blood Glucose Urine pH Ur Specific [place] Coronavirus (PCR) 04/16/21 04/16/21 04/16/21 04:55 05:29 11:02 WBC RBC Hgb Hct MCV MCHC RDW Plt Count Lymph % (Auto) [place] % (Auto) Lymph # (Auto) [place] # (Auto) Seg Neutrophils % Seg Neuts % (Manual) Lymphocytes % (Manual) Monocytes % (Manual) Nucleated RBC % Seg Neutrophils # Seg Neutrophils # Man Lymphocytes # (Manual) Monocytes # (Manual) PT INR APTT D-Dimer Heparin Anti-Xa Level ABG pH 7.487 H POC ABG pCO2 POC ABG pO2 ABG pO2 75.4 L ABG HCO3 40.6 H ABG O2 Saturation ABG Base Excess 15.3 H ABG Hemoglobin 8.9 L ABG Oxyhemoglobin ABG Sodium ABG Potassium ABG Glucose Oxyhemoglobin Sodium Potassium Chloride Carbon Dioxide BUN Creatinine Glucose POC Glucose 168 H 170 H Lactic Acid Calcium Phosphorus Magnesium Ferritin Lactate Dehydrogenase C-Reactive Protein NT-Pro-B Natriuret Pep Total Protein Albumin Triglycerides Arterial Blood Glucose Urine pH Ur Specific [place] Coronavirus (PCR) 02/20/22 02/20/22 02/21/22 16:13 23:41 04:25 WBC 12.5 H RBC 3.00 L Hgb 8.9 L Hct 27.2 L MCV MCHC RDW 16.0 H Plt Count Lymph % (Auto) [place] % (Auto) Lymph # (Auto) [place] # (Auto) Seg Neutrophils % Seg Neuts % (Manual) Lymphocytes % (Manual) Monocytes % (Manual) Nucleated RBC % Seg Neutrophils # Seg Neutrophils # Man Lymphocytes # (Manual) Monocytes # (Manual) PT INR APTT D-Dimer Heparin Anti-Xa Level ABG pH POC ABG pCO2 POC ABG pO2 ABG pO2 ABG HCO3 ABG O2 Saturation ABG Base Excess ABG Hemoglobin ABG Oxyhemoglobin ABG Sodium ABG Potassium ABG Glucose Oxyhemoglobin Sodium Potassium Chloride Carbon Dioxide BUN Creatinine Glucose POC Glucose 167 H 150 H Lactic Acid Calcium Phosphorus Magnesium Ferritin Lactate Dehydrogenase C-Reactive Protein NT-Pro-B Natriuret Pep Total Protein Albumin Triglycerides Arterial Blood Glucose Urine pH Ur Specific [place] Coronavirus (PCR) 04/17/21 04/17/21 04/17/21 04:25 05:23 11:18 WBC RBC Hgb Hct MCV MCHC RDW Plt Count Lymph % (Auto) [place] % (Auto) Lymph # (Auto) [place] # (Auto) Seg Neutrophils % Seg Neuts % (Manual) Lymphocytes % (Manual) Monocytes % (Manual) Nucleated RBC % Seg Neutrophils # Seg Neutrophils # Man Lymphocytes # (Manual) Monocytes # (Manual) PT INR APTT D-Dimer Heparin Anti-Xa Level ABG pH POC ABG pCO2 POC ABG pO2 ABG pO2 ABG HCO3 ABG O2 Saturation ABG Base Excess ABG Hemoglobin ABG Oxyhemoglobin ABG Sodium ABG Potassium ABG Glucose Oxyhemoglobin Sodium 136 L Potassium Chloride 92.4 L Carbon Dioxide 36 H BUN 23 H Creatinine 0.4 L Glucose 145 H POC Glucose 128 H 163 H Lactic Acid Calcium Phosphorus Magnesium Ferritin Lactate Dehydrogenase C-Reactive Protein NT-Pro-B Natriuret Pep Total Protein Albumin Triglycerides Arterial Blood Glucose Urine pH Ur Specific [place] Coronavirus (PCR) 04/17/21 04/17/21 04/18/21 16:50 21:04 00:18 WBC RBC Hgb Hct MCV MCHC RDW Plt Count Lymph % (Auto) [place] % (Auto) Lymph # (Auto) [place] # (Auto) Seg Neutrophils % Seg Neuts % (Manual) Lymphocytes % (Manual) Monocytes % (Manual) Nucleated RBC % Seg Neutrophils # Seg Neutrophils # Man Lymphocytes # (Manual) Monocytes # (Manual) PT INR APTT D-Dimer Heparin Anti-Xa Level ABG pH POC ABG pCO2 POC ABG pO2 ABG pO2 ABG HCO3 ABG O2 Saturation ABG Base Excess ABG Hemoglobin ABG Oxyhemoglobin ABG Sodium ABG Potassium ABG Glucose Oxyhemoglobin Sodium Potassium Chloride Carbon Dioxide BUN Creatinine Glucose POC Glucose 137 H 186 H 194 H Lactic Acid Calcium Phosphorus Magnesium Ferritin Lactate Dehydrogenase C-Reactive Protein NT-Pro-B Natriuret Pep Total Protein Albumin Triglycerides Arterial Blood Glucose Urine pH Ur Specific [place] Coronavirus (PCR) 04/18/21 04/18/21 04/18/21 04:20 04:20 05:21 WBC 14.2 H RBC 2.92 L Hgb 8.5 L Hct 26.3 L MCV MCHC RDW 16.1 H Plt Count Lymph % (Auto) [place] % (Auto) Lymph # (Auto) [place] # (Auto) Seg Neutrophils % Seg Neuts % (Manual) Lymphocytes % (Manual) Monocytes % (Manual) Nucleated RBC % Seg Neutrophils # Seg Neutrophils # Man Lymphocytes # (Manual) Monocytes # (Manual) PT INR APTT D-Dimer Heparin Anti-Xa Level ABG pH POC ABG pCO2 POC ABG pO2 ABG pO2 ABG HCO3 ABG O2 Saturation ABG Base Excess ABG Hemoglobin ABG Oxyhemoglobin ABG Sodium ABG Potassium ABG Glucose Oxyhemoglobin Sodium Potassium Chloride 95.7 L Carbon Dioxide 33 H BUN 21 H Creatinine 0.3 L Glucose 120 H POC Glucose 107 H Lactic Acid Calcium Phosphorus Magnesium Ferritin Lactate Dehydrogenase C-Reactive Protein NT-Pro-B Natriuret Pep Total Protein Albumin Triglycerides Arterial Blood Glucose Urine pH Ur Specific [place] Coronavirus (PCR) 04/18/21 04/18/21 04/18/21 05:26 11:30 11:33 WBC RBC Hgb Hct MCV MCHC RDW Plt Count Lymph % (Auto) [place] % (Auto) Lymph # (Auto) [place] # (Auto) Seg Neutrophils % Seg Neuts % (Manual) Lymphocytes % (Manual) Monocytes % (Manual) Nucleated RBC % Seg Neutrophils # Seg Neutrophils # Man Lymphocytes # (Manual) Monocytes # (Manual) PT INR APTT D-Dimer Heparin Anti-Xa Level ABG pH 7.469 H POC ABG pCO2 POC ABG pO2 ABG pO2 108.9 H ABG HCO3 36.2 H ABG O2 Saturation ABG Base Excess 11.2 H ABG Hemoglobin 8.8 L ABG Oxyhemoglobin ABG Sodium ABG Potassium ABG Glucose Oxyhemoglobin Sodium Potassium Chloride Carbon Dioxide BUN Creatinine Glucose POC Glucose 111 H 113 H Lactic Acid Calcium Phosphorus Magnesium Ferritin Lactate Dehydrogenase C-Reactive Protein NT-Pro-B Natriuret Pep Total Protein Albumin Triglycerides Arterial Blood Glucose Urine pH Ur Specific [place] Coronavirus (PCR) 04/18/21 04/18/21 04/19/21 16:53 23:26 04:26 WBC 13.6 H RBC 2.69 L Hgb 8.5 L Hct 24.4 L MCV MCHC 35 H RDW 15.9 H Plt Count Lymph % (Auto) [place] % (Auto) Lymph # (Auto) [place] # (Auto) Seg Neutrophils % Seg Neuts % (Manual) Lymphocytes % (Manual) Monocytes % (Manual) Nucleated RBC % Seg Neutrophils # Seg Neutrophils # Man Lymphocytes # (Manual) Monocytes # (Manual) PT INR APTT D-Dimer Heparin Anti-Xa Level ABG pH POC ABG pCO2 POC ABG pO2 ABG pO2 ABG HCO3 ABG O2 Saturation ABG Base Excess ABG Hemoglobin ABG Oxyhemoglobin ABG Sodium ABG Potassium ABG Glucose Oxyhemoglobin Sodium Potassium Chloride Carbon Dioxide BUN Creatinine Glucose POC Glucose 139 H 137 H Lactic Acid Calcium Phosphorus Magnesium Ferritin Lactate Dehydrogenase C-Reactive Protein NT-Pro-B Natriuret Pep Total Protein Albumin Triglycerides Arterial Blood Glucose Urine pH Ur Specific [place] Coronavirus (PCR) 04/19/21 04/19/21 04/19/21 04:26 05:16 11:01 WBC RBC Hgb Hct MCV MCHC RDW Plt Count Lymph % (Auto) [place] % (Auto) Lymph # (Auto) [place] # (Auto) Seg Neutrophils % Seg Neuts % (Manual) Lymphocytes % (Manual) Monocytes % (Manual) Nucleated RBC % Seg Neutrophils # Seg Neutrophils # Man Lymphocytes # (Manual) Monocytes # (Manual) PT INR APTT D-Dimer Heparin Anti-Xa Level ABG pH POC ABG pCO2 POC ABG pO2 ABG pO2 ABG HCO3 ABG O2 Saturation ABG Base Excess ABG Hemoglobin ABG Oxyhemoglobin ABG Sodium ABG Potassium ABG Glucose Oxyhemoglobin Sodium Potassium Chloride Carbon Dioxide BUN Creatinine 0.3 L Glucose 163 H POC Glucose 154 H 164 H Lactic Acid Calcium Phosphorus Magnesium Ferritin Lactate Dehydrogenase C-Reactive Protein NT-Pro-B Natriuret Pep Total Protein Albumin Triglycerides Arterial Blood Glucose Urine pH Ur Specific [place] Coronavirus (PCR) 04/19/21 04/19/21 04/19/21 15:55 21:00 23:13 WBC RBC Hgb Hct MCV MCHC RDW Plt Count Lymph % (Auto) [place] % (Auto) Lymph # (Auto) [place] # (Auto) Seg Neutrophils % Seg Neuts % (Manual) Lymphocytes % (Manual) Monocytes % (Manual) Nucleated RBC % Seg Neutrophils # Seg Neutrophils # Man Lymphocytes # (Manual) Monocytes # (Manual) PT INR APTT D-Dimer Heparin Anti-Xa Level ABG pH POC ABG pCO2 POC ABG pO2 ABG pO2 ABG HCO3 ABG O2 Saturation ABG Base Excess ABG Hemoglobin ABG Oxyhemoglobin ABG Sodium ABG Potassium ABG Glucose Oxyhemoglobin Sodium Potassium Chloride Carbon Dioxide BUN Creatinine Glucose POC Glucose 138 H 151 H 147 H Lactic Acid Calcium Phosphorus Magnesium Ferritin Lactate Dehydrogenase C-Reactive Protein NT-Pro-B Natriuret Pep Total Protein Albumin Triglycerides Arterial Blood Glucose Urine pH Ur Specific [place] Coronavirus (PCR) 04/20/21 04/20/21 04/20/21 04:17 04:17 05:15 WBC 13.1 H RBC 2.94 L Hgb 8.8 L Hct 26.8 L MCV MCHC RDW 16.2 H Plt Count Lymph % (Auto) [place] % (Auto) Lymph # (Auto) [place] # (Auto) Seg Neutrophils % Seg Neuts % (Manual) Lymphocytes % (Manual) Monocytes % (Manual) Nucleated RBC % Seg Neutrophils # Seg Neutrophils # Man Lymphocytes # (Manual) Monocytes # (Manual) PT INR APTT D-Dimer Heparin Anti-Xa Level ABG pH POC ABG pCO2 POC ABG pO2 ABG pO2 ABG HCO3 ABG O2 Saturation ABG Base Excess ABG Hemoglobin ABG Oxyhemoglobin ABG Sodium ABG Potassium ABG Glucose Oxyhemoglobin Sodium 135 L Potassium Chloride Carbon Dioxide BUN Creatinine 0.3 L Glucose 151 H POC Glucose 126 H Lactic Acid Calcium 8.3 L Phosphorus Magnesium Ferritin Lactate Dehydrogenase C-Reactive Protein NT-Pro-B Natriuret Pep Total Protein Albumin Triglycerides Arterial Blood Glucose Urine pH Ur Specific [place] Coronavirus (PCR) 04/20/21 11:03 WBC RBC Hgb Hct MCV MCHC RDW Plt Count Lymph % (Auto) [place] % (Auto) Lymph # (Auto) [place] # (Auto) Seg Neutrophils % Seg Neuts % (Manual) Lymphocytes % (Manual) Monocytes % (Manual) Nucleated RBC % Seg Neutrophils # Seg Neutrophils # Man Lymphocytes # (Manual) Monocytes # (Manual) PT INR APTT D-Dimer Heparin Anti-Xa Level ABG pH POC ABG pCO2 POC ABG pO2 ABG pO2 ABG HCO3 ABG O2 Saturation ABG Base Excess ABG Hemoglobin ABG Oxyhemoglobin ABG Sodium ABG Potassium ABG Glucose Oxyhemoglobin Sodium Potassium Chloride Carbon Dioxide BUN Creatinine Glucose POC Glucose 154 H Lactic Acid Calcium Phosphorus Magnesium Ferritin Lactate Dehydrogenase C-Reactive Protein NT-Pro-B Natriuret Pep Total Protein Albumin Triglycerides Arterial Blood Glucose Urine pH Ur Specific [place] Coronavirus (PCR) Chest x-ray: pending Allied health notes reviewed: nursing
[2021-04-20] MEDS: FUROSEMIDE 40 MG/4 ML INJ IV SCH (16:10)
--- NOTE | 2021-04-20 16:58 | Progress Note ---
Assessment and Plan Assessment and plan: This is a 61-year-old man with HTN and DM admitted with COVID-19 pneumonia, acute hypoxic respiratory failure, sepsis Neuro: Acute encephalopathy -s/p fentanyl gtt, Seroquel and Librium -Avoid delirium -Reorientation as needed -Maintain sleep-wake cycle -As needed analgesia -admit: CT head shows no acute intracranial abnormality -Neurology consulted, appreciate recommendations -04/10 CT head shows no focal mass, hemorrhage, hydrocephalus or acute large territorial infarct but shows significant sinus disease with significant opacification of the mastoids bilaterally and mild middle ear cavity disease suggested as well -MRI brain shows no gross evidence of acute or significant intracranial abnormality, exam limited by motion artifact, partial opacification of mastoid air cells bilaterally, more extensively on the right, no definite evidence of fluid within the middle ear cavity. -PT consulted, appreciate recommendations Cardiac: h/o Hypertension -Cardiology consulted, appreciate recommendations -Blood pressure monitoring per protocol -Echocardiogram shows a mildly dilated ascending aorta, normal LV systolic function, mild concentric LVH, LVEF 60 to 65% -Antihypertensive regimen: Hydralazine, metoprolol, amlodipine Respiratory: Acute hypoxic respiratory failure -CCM consulted, appreciate recommendations -Intubated on 03/10 with 7.50 ETT at 24 at the lips, s/p trach on 03/29 -A.m. vent settings: Assist-control rate 12, tidal volume 450, PEEP 6, FiO2 35% -T-piece trials as tolerated -Albuterol as needed, Brovana, Pulmicort -VAP bundle -SPO2 monitoring GI: Obesity, external hemorrhoids -24 hours +1585 mL -PPI -NTR consulted for tube feedings -BR: Senokot, miralax -BM 04/20 -As needed Preparation H : Urinary retention -Nephrology consulted, appreciate recommendations -Strict intake and output -Renally dose medications -Avoid nephrotoxic medications -Doxazosin increased to twice daily -Good catheter removed 04/17 and patient had to be straight cath x2 however did eventually have spontaneous urine output -Will continue to monitor -Lasix -trend BMP ID: Severe sepsis (POA), COVID-19 pneumonia, stenotrophomonas maltophilia in tracheal aspirate -Infectious disease consulted, appreciate recommendations -S/p remdesivir for 5 days -S/p Actemra 03/10/2021 -f/u blood culture -Monitor WBC and temperature curve -s/p steroids -IV Cefepime started 04/15, increased d/t MO by ID -f/u procal in am -03/16 Fungitell and histoplasma negative Heme: Acute right upper extremity DVT , superficial thrombus in left gastrocnem ius vein -Bilateral lower extremity ultrasound negative for DVT, superficial thrombus in left gastrocnemius vein -repeat BLE Doppler US show superficial thrombus -Repeat bilateral upper extremity ultrasound shows DVT in right upper extremity -heparin drip to eliquis PO -repeat BLE UE dopplar showed superficial thrombus within the gastrocnemius vein unchanged from previous study -CTA chest shows no gross pulm embolism -Trend CBC -SCDs to BLE while in bed -Transfuse hemoglobin less than 7 -Monitor for signs of bleeding Endo: h/o DM -Avoid hypoglycemia -SSI -Accu-Cheks q. 6 -Long-acting insulin, titrate as needed The high probability of a clinically significant, sudden or life threatening deterioration of the [multi] system(s) required my full and direct attention, intervention and personal management. The aggregate critical care time was [60] minutes. This time is in addition to time spent performing reported procedures b ut includes the following: [x] Data Review and interpretation [x] Patient assessment and monitoring of vital signs [x] Documentation [x] Medication orders and management Disposition Plan: icu Total Time Spent with Patient (Minutes): 60 History Interval history: This is a 61-year-old male with HTN and DM who presented to the emergency department on 03/09 with shortness of breath and hypoxia via EMS. Patient had apparently been feeling ill for proxy 1 week prior to mentation. Upon EMS arrival patient SPO2 was in the low 70s and improved to upper 80slow 90s on nonrebreather and he was transported to [facility] in the emergency department patient was noted to be hypoxic and placed on a BiPAP with improvement to mentation and hypoxia. CXR showed bilateral patchy infiltrates. Lab work showed leukocytosis, elevated D-dimer, hyponatremia, hypochloremia and elevated COVID-19 markers with elevated BNP. CTA chest showed no pulmonary embolism. Patient was admitted to the hospitalist service as a COVID-19 PUI and started on antibiotics and Decadron with consult to infectious disease. 03/09: The patient was seen and evaluated today, and he was found to be hemodynamically stable. The patient is currently on BiPAP for possible COVID-19 pneumonia. He was started on Lovenox 1mg/kg for DVT ppx in the setting of d- dimer > 10,000. Infectious Disease was consulted. The patient is pending a TTE. 03/10: No acute events overnight, patient was intubated in the afternoon tra nsferred to ICU 03/11: Patient started on Lantus, free water flushes increased, propofol drip resumed and oral antihypertensive added. 03/12: lantus increased, k at 5, will monitor. I updated his family and his stated that he is not vaccinated. He does have HTN and she will call the RN to update home medications. She did say he takes bystolic and amlopine. She inquired about ventilator and lab work. She had no further questions. 03/13: KVNG overnight. Patient remains hyperglycemic, basal insulin adjusted and increased to Q12hrs. Patient is overall net positive since admit X1 dose of IV lasix, repeat BMP this afternoon. 03/14: Failed SAT this am due to increase agitation, tachycardia and hypertension. Remains on propofol and fentanyl gtt. Hyperkalemia treated with PO kayaxalate. Patient responded to IV lasix yesterday additional dose again today for a net negative balance. Repeat BMP this afternoon. Insulin adjusted for hyperglycemia. 03/15: Remains encephalopathic, not following commansd. Orders placed for CT head/Brain and Neuro consulted. Rectal bleeding subsided, most likely due to hemorrhoids. H&H is stable will continue to monitor. Kayaxexalate for high K, repeat labs 4 to 6hrs post treatment. 03/16: Still agiated this am, CT head with no acute Abn. CXR and ABG noted- evolving pna and worsening hypoxia, now with low grade fevers. Sputum culture ordered, IV Abx added, ID on cosult. 03/17: This am ABG noted, hypoxia improved. Continue to wean FiO2 as tolerated. Still with low grade fevers, on IV Abx per ID. Still with periods of confusion despite sedation, seroquel increased. F/u CXR in the am 03/18: still very agitated especially when off sedation, with hypertension and tachycardia. Continue sedation for RASS -2, PRN antihypertensive for SPB greater than 160. This febrile this am, continue current IV abx per ID 03/19: Patient afebrile overnight, continue IV Abx per ID. ABG also improved this am, continue to wean FIO2 as tolerated. PRN antihypertensive for hypertension. 03/20: Hyperkalemia treated with Kayexalate, Good discontinued, vancomycin and cefepime stopped started Bactrim by ID. Steroid taper started. 03/21: BB started for hypertension, Seroquel increased for agitation and Librium started no acute events reported overnight. CCM made vent changes 03/22: Adjustment to anxiolytics, respiratory rate on ventilator per CCM. Patient noted to have bleeding hemorrhoids with clot, requested RN to remove bowel management system and will order Preparation H. 03/23: Given no confirmed DVT or PE (only superficial thrombus noted on Dopplers) therapeutic Lovenox changed to prophylactic Lovenox. Started on doxazosin to help with retention. Consulted surgery for tracheostomy and propofol discontinued. 03/24: Surgery consult completed, patient changed to prophylaxis anticoagulation, started on doxazosin yesterday with plans to remove Good catheter in 48 hours. Patient with slight hypokalemia today and given Kayexalate. No acute events reported overnight. 03/25: No acute events reported overnight. Patient remains on fentanyl drip and on CPAP trial this morning. 03/26: no acute events reported overnight. placed on CPAP this AM, remains on fent/librium. scheduled for trach/peg this week. 03/27: Hypoglycemic this am, will decreased lantus to Qhs. Plan for possible Trach and Peg by Gen Surg this am. Case management to arrange possible LTAC placement 03/28: KVNG overnight. Tolerating PST this am. Plan for trach and PEG tomorrow by Gen. Surgery, NPO after midnight. 03/29: No significant changes overnight. Plan for trach and Peg today. Case management to arrange possible LTAC placement 03/30. S/p Trach and PEG, no complications noted. High residual yesterday despite NPO status, reglan added X2 days. Per RN no residual this am, patient is tolerating TF. Continue to advance TF as tolerated. Norvasc added for hypertension. Pitting edema also appreciated, some diuretic might be beneficial, will d/w CCM. Continue daily PST as tolerated. 03/31: Patient remains on the vent still on fentanyl gtt with periods of agitation. PRN analgesia added, plan to start weaning off fentanyl gtt. Febrile this am, completed IV abx course. Will panculture for now, ID is also following. 04/01: Still febrile overnight, cultures result pending, continue IV ABx per ID. Failed PST this am. Continue daily PST and vent wean per [facility]. Case management to arrange possible placement. 04/02: KVNG overnight. Fevers improved overnight, continue to follow cultures data, IV ABx per ID. Continue daily PST and wean vent as per [facility]. 04/03: Given low procalcitonin, unchanged CXR and cultures with no growth cefepime was discontinued by ID. LTAC evaluation ongoing. No acute events reported overnight. 04/04: IV Lasix stopped today, Seroquel taper started, fentanyl drip on hold and steroids stopped. Pressure support trial again today. 04/05: Patient had to be restarted on fentanyl drip therefore Seroquel was increased back to 250 twice daily and he was started on scheduled narcotics and efforts to wean fentanyl drip. Doxazosin was increased to twice daily as patient still had retention issues on doxazosin once a day. Patient was denied LTAC placement. CPAP trial today. 04/06: Right upper extremity ultrasound obtained due to edema which showed DVT. Patient started on heparin drip. Overnight patient had hypoxia, tachypnea, tachycardia, hypotension and FiO2 was increased to 100%. RT titrating as tolerated. Plan was to start T-piece trials today. Patient has been denied LTAC placement. 04/07: BLE dopplar, continue lasix per [facility], CXR in AM. Increase in fio2 overnight d/t desaturation. Wean FiO2 as tolerated. 04/08: Patient remains on 65% FiO2, s/p Lasix for 3 doses, hyperkalemia noted today and medically treated. [facility] plans to consult heme/onc once FiO2 decreased. Remains on heparin gtt 04/09: No acute events reported overnight, possible heme-onc consult on Saturday or Saturday regarding upper extremity DVT, wean FiO2 as tolerated. Repeat CT head on Monday 04/10: Patient mentation is unchanged, repeat CT head today. Remains on heparin gtt per protocol. Continue daily PST as tolerated. 04/11: Increased work of breathing and high RR overnight, vent FiO2 increased to 55%. Resolved this am, patient is tolerating PST, no acute distress noted. Wean Fio2 as tolerated for SPO2 above 92%, Follow up CXR and ABG in the am. Antihypertensive regimen adjusted for better BP control. 04/12: Patient with coarse lungs and increased secretion today. This am CXR noted with worsen infiltrate, 40 of Lasix given, repeat CXR in the am. Patient remains afebrile, complete IV Abx course, VSS. Transitioned to PO Eliquis overnight, continue to keep patient net negative for better lung compliance. Continue daily PST as tolerated. 04/13: Patient is off sedation this am. Remains unresponsive. Librium D/C and Seroquel was adjusted to Qhs, PRN analgesia for pain management. Patient responded well to IV lasix, this am CXR with some improvement, additional IV lasix ordered again today. high CO2 also noted from this am, ABG ordered. Patient is tolerating PST this am, SPO2 remains above 95%. Continue daily PST plan to get patient off the vent for possible SNF placemement 04/14: Patient mentation is unchanged despite reducing sedative agents. Will hold all scheduled sedatives agents for now, PRN analgesics for pain management and vent synchrony. Patient spike a temp this am, orders placed for cultures, IV abx per ID. Additional lasix today, F/u CXR in the am. Patient is tolerating PST this am. 04/15: Remains febrile overnight. Culture data pending, back on IV Abx per ID. Gentle fluid management with IV lasix. Keep patient at a net negative balance. Continue daily PST as tolerated. 04/16: Open eyes spontaneously this am, but still not following commands. MRI brain ordered. Continue to avoid any sedative agents. Patient continue to respond very well to IV diuretic, continue gentle diurese X3days as tolerated. Continue daily PST as tolerated. Plan is get patient off the vent for possible SNF placement. Patient remains febrile this am, now cefepine and Vanc, continue IV abx per ID. 04/17: We will repeat procalcitonin per ID, MRI brain pending, SNF placement pending, [facility] plans to start T-piece trials in the morning and will discontinue F oley catheter again. 04/18: Overnight patient to be straight cath x2 but did eventually have spontan eous urine output today and Good catheter was not replaced, patient had MRI brain today and was started on T-piece trials. He received Versed for sedation for MRI brain. 04/19: Good catheter was not replaced overnight patient is still voiding, placed on T-piece today, scopolamine and Robinul restarted. 04/20: Patient T-piece trial again today, will decrease bowel regimen in a.m. for entering T-piece for 24 hours obtain gas in the a.m. Cefazolin increased Hospitalist Physical - Constitutional Vitals: Temp Pulse Resp BP Pulse Ox 98.0 F 105 H 35 H 123/70 97 04/20/21 16:26 04/20/21 16:01 04/20/21 16:01 04/20/21 16:01 04/20/21 16:01 General appearance: Present: no acute distress, well-nourished, obese, other (Unresponsive) - EENT Eyes: Present: PERRL, EOM intact ENT: hearing intact, clear oral mucosa - Neck Neck: Present: normal ROM - Respiratory Respiratory effort: normal Respiratory: bilateral: diminished - Cardiovascular Rhythm: regular Heart Sounds: Present: S1 & S2. Absent: systolic murmur, diastolic murmur - Extremities Extremities: no ischemia, pulses intact, pulses symmetrical, No edema, normal temperature, normal color Peripheral Pulses: within normal limits - Abdominal General gastrointestinal: soft, non-tender, normal bowel sounds - Integumentary Integumentary: Present: warm, dry - Psychiatric Psychiatric: cooperative - Neurologic Neurologic: CNII-XII intact, no focal deficits, moves all extremities Results - Labs CBC & Chem 7: 04/20/21 04:17 04/20/21 04:17 Labs: Laboratory Last Values WBC 13.1 K/mm3 (4.5-11.0) H 04/20/21 04:17 RBC 2.94 M/mm3 (3.65-5.03) L 04/20/21 04:17 Hgb 8.8 gm/dl (11.8-15.2) L 04/20/21 04:17 Hct 26.8 % (35.5-45.6) L 04/20/21 04:17 MCV 91 fl (84-94) 04/20/21 04:17 MCH 30 pg (28-32) 04/20/21 04:17 MCHC 33 % (32-34) 04/20/21 04:17 RDW 16.2 % (13.2-15.2) H 04/20/21 04:17 Plt Count 403 K/mm3 (140-440) 04/20/21 04:17 Lymph % (Auto) 7.6 % (13.4-35.0) L 03/31/21 13:30 Faulk % (Auto) 9.5 % (0.0-7.3) H 03/31/21 13:30 Eos % (Auto) 4.1 % (0.0-4.3) 03/31/21 13:30 Baso % (Auto) 0.5 % (0.0-1.8) 03/31/21 13:30 Lymph # (Auto) 0.6 K/mm3 (1.2-5.4) L 03/31/21 13:30 Faulk # (Auto) 0.7 K/mm3 (0.0-0.8) 03/31/21 13:30 Eos # (Auto) 0.3 K/mm3 (0.0-0.4) 03/31/21 13:30 Baso # (Auto) 0.0 K/mm3 (0.0-0.1) 03/31/21 13:30 Add Manual Diff Complete 04/11/21 06:47 Total Counted 100 04/11/21 06:47 Seg Neutrophils % 78.3 % (40.0-70.0) H 03/31/21 13:30 Seg Neuts % (Manual) 76.0 % (40.0-70.0) H 04/11/21 06:47 Band Neutrophils % 2.0 % 04/11/21 06:47 Lymphocytes % (Manual) 10.0 % (13.4-35.0) L 04/11/21 06:47 Reactive Lymphs % (Man) 0 % 04/11/21 06:47 Monocytes % (Manual) 7.0 % (0.0-7.3) 04/11/21 06:47 Eosinophils % (Manual) 4.0 % (0.0-4.3) 04/11/21 06:47 Basophils % (Manual) 0 % (0.0-1.8) 04/11/21 06:47 Metamyelocytes % 1.0 % 04/11/21 06:47 Myelocytes % 0 % 04/11/21 06:47 Promyelocytes % 0 % 04/11/21 06:47 Blast Cells % 0 % 04/11/21 06:47 Nucleated RBC % Not Reportable 04/11/21 06:47 Seg Neutrophils # 5.8 K/mm3 (1.8-7.7) 03/31/21 13:30 Seg Neutrophils # Man 8.3 K/mm3 (1.8-7.7) H 04/11/21 06:47 Band Neutrophils # 0.2 K/mm3 04/11/21 06:47 Lymphocytes # (Manual) 1.1 K/mm3 (1.2-5.4) L 04/11/21 06:47 Abs React Lymphs (Man) 0.0 K/mm3 04/11/21 06:47 Monocytes # (Manual) 0.8 K/mm3 (0.0-0.8) 04/11/21 06:47 Eosinophils # (Manual) 0.4 K/mm3 (0.0-0.4) 04/11/21 06:47 Basophils # (Manual) 0.0 K/mm3 (0.0-0.1) 04/11/21 06:47 Metamyelocytes # 0.1 K/mm3 04/11/21 06:47 Myelocytes # 0.0 K/mm3 04/11/21 06:47 Promyelocytes # 0.0 K/mm3 04/11/21 06:47 Blast Cells # 0.0 K/mm3 04/11/21 06:47 WBC Morphology Not Reportable 04/11/21 06:47 Hypersegmented Neuts Not Reportable 04/11/21 06:47 Hyposegmented Neuts Not Reportable 04/11/21 06:47 Hypogranular Neuts Not Reportable 04/11/21 06:47 Smudge Cells Not Reportable 04/11/21 06:47 Toxic Granulation 1+ 04/11/21 06:47 Toxic Vacuolation Not Reportable 04/11/21 06:47 Dohle Bodies Not Reportable 04/11/21 06:47 Pelger-Huet Anomaly Not Reportable 04/11/21 06:47 Mely Rods Not Reportable 04/11/21 06:47 Platelet Estimate Consistent w auto 04/11/21 06:47 Clumped Platelets Not Reportable 04/11/21 06:47 Plt Clumps, EDTA Not Reportable 04/11/21 06:47 Large Platelets Not Reportable 04/11/21 06:47 Giant Platelets Not Reportable 04/11/21 06:47 Platelet Satelliting Not Reportable 04/11/21 06:47 Plt Morphology Comment Not Reportable 04/11/21 06:47 RBC Morphology Not Reportable 04/11/21 06:47 Dimorphic RBCs Not Reportable 04/11/21 06:47 Polychromasia Not Reportable 04/11/21 06:47 Hypochromasia Not Reportable 04/11/21 06:47 Poikilocytosis Not Reportable 04/11/21 06:47 Anisocytosis 1+ 04/11/21 06:47 Microcytosis Not Reportable 04/11/21 06:47 Macrocytosis Not Reportable 04/11/21 06:47 Spherocytes Not Reportable 04/11/21 06:47 Pappenheimer Bodies Not Reportable 04/11/21 06:47 Sickle Cells Not Reportable 04/11/21 06:47 Target Cells Not Reportable 04/11/21 06:47 Tear Drop Cells Not Reportable 04/11/21 06:47 Ovalocytes Not Reportable 04/11/21 06:47 Helmet Cells Not Reportable 04/11/21 06:47 [place] Bodies Not Reportable 04/11/21 06:47 Peerless Rings Not Reportable 04/11/21 06:47 Shama Cells Not Reportable 04/11/21 06:47 Bite Cells Not Reportable 04/11/21 06:47 Crenated Cell Not Reportable 04/11/21 06:47 Elliptocytes Not Reportable 04/11/21 06:47 Acanthocytes (Spur) Not Reportable 04/11/21 06:47 Rouleaux Not Reportable 04/11/21 06:47 Hemoglobin C Crystals Not Reportable 04/11/21 06:47 Schistocytes Not Reportable 04/11/21 06:47 Malaria parasites Not Reportable 04/11/21 06:47 Shaheen Bodies Not Reportable 04/11/21 06:47 Hem Pathologist Commnt No 04/11/21 06:47 PT 13.4 Sec. (12.2-14.9) 04/11/21 18:17 INR 0.92 (0.87-1.13) 04/11/21 18:17 APTT 61.1 Sec. (24.2-36.6) H* 04/11/21 18:17 D-Dimer 1359.12 ng/mlDDU (0-234) H 03/17/21 04:40 Heparin Anti-Xa Level 1.03 U.I./ml (0.3-0.7) H 04/12/21 05:11 ABG pH 7.469 pH Units (7.350-7.450) H 04/18/21 11:30 POC ABG pCO2 57.4 mmHg (32.0-48.0) H 04/06/21 04:49 ABG pCO2 50.9 mm Hg 04/18/21 11:30 POC ABG pO2 55.1 mmHg (83-108) L 04/06/21 04:49 ABG pO2 108.9 mm Hg (80.0-90.0) H 04/18/21 11:30 POC ABG HCO3 36.2 04/06/21 04:49 ABG HCO3 36.2 mmol/L (20.0-26.0) H 04/18/21 11:30 ABG O2 Saturation 98.0 % (95.0-99.0) 04/18/21 11:30 ABG O2 Content 12.1 (0.0-44) 04/18/21 11:30 POC ABG Base Excess 10.0 04/06/21 04:49 ABG Base Excess 11.2 mmol/L (-2.0-3.0) H 04/18/21 11:30 ABG Hemoglobin 8.8 gm/dl (14.0-18.0) L 04/18/21 11:30 ABG Oxyhemoglobin 87.5 (94-98) L 04/06/21 04:49 ABG Carboxyhemoglobin 1.7 % (0.0-5.0) 04/18/21 11:30 ABG Methemoglobin 0.5 % (0.0-1.5) 04/18/21 11:30 ABG Sodium 134.2 mmol/L (136.0-145.0) L 03/12/21 21:54 ABG Potassium 4.9 mmol/L (3.40-4.50) H 03/12/21 21:54 ABG Chloride 99.0 mmol/L (98-107) 03/12/21 21:54 ABG Glucose 306 mg/dL (65-95) H 03/12/21 21:54 Oxyhemoglobin 95.9 % (95.0-99.0) 04/18/21 11:30 Carboxyhemoglobin 0.8 (0.5-1.5) 04/06/21 04:49 FiO2 40 % 04/18/21 11:30 FiO2 % 40.0 04/06/21 04:49 Sodium 135 mmol/L (137-145) L 04/20/21 04:17 Potassium 3.7 mmol/L (3.6-5.0) 04/20/21 04:17 Chloride 98.8 mmol/L (98-107) 04/20/21 04:17 Carbon Dioxide 28 mmol/L (22-30) 04/20/21 04:17 Anion Gap 12 mmol/L 04/20/21 04:17 BUN 17 mg/dL (9-20) 04/20/21 04:17 Creatinine 0.3 mg/dL (0.8-1.3) L 04/20/21 04:17 Estimated GFR > 60 ml/min 04/20/21 04:17 BUN/Creatinine Ratio 57 % 04/20/21 04:17 Glucose 151 mg/dL (75-100) H 04/20/21 04:17 POC Glucose 152 mg/dL (70-105) H 04/20/21 16:01 Lactic Acid 1.90 mmol/L (0.7-2.0) 03/08/21 23:51 Calcium 8.3 mg/dL (8.4-10.2) L 04/20/21 04:17 Phosphorus 3.60 mg/dL (2.5-4.5) 04/17/21 04:25 Magnesium 2.30 mg/dL (1.7-2.3) 04/19/21 04:26 Ferritin 976.4 ng/mL (30.0-300.0) H 03/15/21 04:00 Total Bilirubin 0.20 mg/dL (0.1-1.2) 03/12/21 08:03 AST 10 units/L (5-40) 03/12/21 08:03 ALT 16 units/L (7-56) 03/12/21 08:03 Alkaline Phosphatase 77 units/L (35-129) 03/12/21 08:03 Lactate Dehydrogenase 630 units/L (91-180) H 03/15/21 06:06 C-Reactive Protein 0.40 mg/dL (0.00-1.30) 03/17/21 04:40 NT-Pro-B Natriuret Pep 1053 pg/mL (0-900) H 03/08/21 20:24 Total Protein 6.0 g/dL (6.3-8.2) L 03/12/21 08:03 Albumin 2.9 g/dL (3.9-5) L 03/12/21 08:03 Albumin/Globulin Ratio 0.9 % 03/12/21 08:03 Triglycerides 305 mg/dL (2-149) H 03/22/21 07:26 Procalcitonin 0.19 ng/mL (<0.15) 04/18/21 04:20 Arterial Blood Glucose 306 mg/dL (65-95) H 03/12/21 21:54 Arterial Blood Ionized Calcium 5.0 mg/dL (4.6-5.3) 03/12/21 21:54 Urine Color Yellow (Yellow) 04/14/21 Unknown Urine Turbidity Clear (Clear) 04/14/21 Unknown Urine pH 8.0 (5.0-7.0) H 04/14/21 Unknown Ur Specific [place] 1.009 (1.003-1.030) 04/14/21 Unknown Urine Protein <15 mg/dl mg/dL (Negative) 04/14/21 Unknown Urine Glucose (UA) Neg mg/dL (Negative) 04/14/21 Unknown Urine Ketones Neg mg/dL (Negative) 04/14/21 Unknown Urine Blood Neg (Negative) 04/14/21 Unknown Urine Nitrite Neg (Negative) 04/14/21 Unknown Urine Bilirubin Neg (Negative) 04/14/21 Unknown Urine Urobilinogen 2.0 mg/dL (<2.0) 04/14/21 Unknown Ur Leukocyte Esterase Neg (Negative) 04/14/21 Unknown Urine WBC (Auto) < 1.0 /HPF (0.0-6.0) 04/14/21 Unknown Urine RBC (Auto) < 1.0 /HPF (0.0-6.0) 04/14/21 Unknown Urine Bacteria (Auto) 1+ /HPF (Negative) 03/09/21 04:10 Urine Mucus Few /HPF 03/09/21 04:10 Vancomycin Trough 16.8 ug/mL (5.0-20.0) 04/16/21 14:30 Coronavirus (PCR) Positive (Negative) A 03/09/21 08:00 Miscellaneous Test Flexitest 1 03/16/21 13:14 Microbiology: Microbiology 04/14/21 08:17 Tracheal Aspirate Sputum Culture - Final Staphylococcus Aureus 04/15/21 13:55 Bronchial Washings - Right Middle Lobe Respiratory Culture - Final Staphylococcus Aureus Good/IV: Voiding Method Condom Catheter Active Medications - Current Medications Current Medications: Generic Name Dose Route Start Last Admin Trade Name Freq PRN Reason Stop Dose Admin Acetaminophen 650 mg 03/09/21 01:26 04/18/21 00:48 Acetaminophen 325 Mg Tab PO 650 mg Q4H PRN Administration Pain MILD(1-3)/Fever >100.5/RAYO Albuterol 2.5 mg 03/09/21 01:26 03/18/21 21:06 Albuterol 2.5 Mg/3 Ml Nebu IH 2.5 mg Q4HRT PRN Administration Shortness Of Breath Amlodipine Besylate 10 mg 04/11/21 10:00 04/20/21 10:27 Amlodipine 5 Mg Tab PO 10 mg QDAY BLANCA Administration Apixaban 5 mg 04/18/21 22:00 04/20/21 10:26 Apixaban 5 Mg Tab PO 5 mg Q12HR BLANCA Administration Protocol Arformoterol Tartrate 15 mcg 03/11/21 20:00 04/20/21 08:55 Arformoterol 15 Mcg/2 Ml Nebu IH 15 mcg Q12HRT BLANCA Administration Bisacodyl 10 mg 03/26/21 13:43 03/26/21 13:51 Bisacodyl 10 Mg Rect Supp IN 10 mg QDAY PRN Administration Constipation Budesonide 0.5 mg 04/06/21 20:00 04/20/21 08:55 Budesonide 0.5 Mg/2 Ml Nebu IH 0.5 mg Q12HRT BLANCA Administration Dextrose 0 ml 03/20/21 10:52 Dextrose 10% *Hypoglycemia IV PRN PRN Hypoglycemia Doxazosin Mesylate 1 mg 04/05/21 22:00 04/20/21 10:28 Doxazosin 1 Mg Tab PO 1 mg BID BLANCA Administration Famotidine 20 mg 03/12/21 22:00 04/20/21 10:26 Famotidine 20 Mg Tab FEEDTUBE 20 mg BID BLANCA Administration Fentanyl 50 mcg 04/14/21 11:00 04/14/21 21:37 Fentanyl 100 Mcg/2 Ml Inj IV 50 mcg Q2HR PRN Administration COPT greater than 3 Furosemide 40 mg 04/20/21 15:00 04/20/21 16:10 Furosemide 40 Mg/4 Ml Inj IV 04/23/21 14:59 40 mg QDAY BLANCA Administration Glycopyrrolate 1 mg 04/19/21 14:00 04/20/21 14:33 Glycopyrrolate 1 Mg Tab PO 1 mg TID BLANCA Administration Hydralazine HCl 50 mg 03/23/21 14:26 04/20/21 14:33 Hydralazine 25 Mg Tab PO 50 mg Q8HR BLANCA Administration Cefazolin Sodium 3 gm/ Sodium 100 mls @ 100 mls/30 min 04/20/21 14:00 04/20/21 14:33 Chloride IV 100 mls/30 min Q8HR BLANCA Administration Protocol Insulin Glargine 18 units 04/07/21 22:00 04/19/21 21:04 Insulin Glargine 100 Units/Ml SUB-Q 18 units QHS BLANCA Administration Insulin Human Lispro 0 unit 03/11/21 18:00 04/20/21 12:47 Insulin Lispro 100 Unit/Ml SUB-Q 3 unit Q6HR BLANCA Administration Protocol Metoprolol Tartrate 12.5 mg 03/21/21 22:00 04/20/21 10:26 Metoprolol Tartrate 25 Mg Tab PO 12.5 mg BID BLANCA Administration Ondansetron HCl 4 mg 03/09/21 01:26 04/13/21 16:17 Ondansetron 4 Mg/2 Ml Inj IV 4 mg Q8H PRN Administration Nausea And Vomiting Oxycodone HCl 5 mg 04/13/21 12:34 04/20/21 12:47 Oxycodone 5 Mg Tab PO 5 mg Q6HR PRN Administration Pain, Moderate (4-6) Phenyleph/Shark Oil/Min Oil/Petrol 1 applic 03/22/21 17:35 04/06/21 04:04 Pe/Mo/Pet,Wh 10 Applic/28 Gm Tube IN 1 applic Q6HR PRN Administration Hemorrhoids Polyethylene Glycol 17 gm 04/02/21 10:00 04/20/21 10:26 Polyethylene Glycol 3350 17 Gm Powder FEEDTUBE 17 gm QDAY BLANCA Administration Scopolamine 1 each 04/19/21 13:00 04/19/21 13:41 Scopolamine Transdermal Patch 72 Hr TD 1 each Q3D BLANCA Administration Sodium Chloride 10 ml 03/09/21 10:00 04/20/21 10:28 Sodium Chloride 0.9% 10 Ml Flush Syringe IV 10 ml BID BLANCA Administration Sodium Chloride 10 ml 03/09/21 01:26 04/10/21 21:07 Sodium Chloride 0.9% 10 Ml Flush Syringe IV 10 ml PRN PRN Administration LINE FLUSH Nutrition/Malnutrition Assess - Dietary Evaluation Nutrition/Malnutrition Findings: Nutrition Notes Start: 03/09/21 08:49 Freq: Status: Active Protocol: Document 04/14/21 14:43 BRIAN (Rec: 04/14/21 14:45 GAALL [email or web address]) Nutrition Notes Initial or Follow up Reassessment Current Diagnosis Diabetes,Sepsis,Hypertension, Respiratory Failure Other Pertinent Diagnosis COVID-19, Bilateral Pneumonia. Current Diet TF-Glucerna 1.2 at 70 ml/hr Labs/Tests reviewed Pertinent Medications reviewed Height 5 ft 11 in Weight 122.4 kg [place] Body Weight (kg) 78.18 BMI 37.6 Weight Status Obese Subjective/Other Information Pt remains on vent support. Spoke with RN via phone (14:18 ); pt continues to tolerate TF at goal rate. Percent of energy/protein needs met: 82% energy 78% pro Burn Absent Trauma Absent #1 Nutrition Diagnosis Inadequate oral intake Diagnosis Progress(for reassessment Continues documentation) Is patient on ventilator? Yes Is Patient Ambulatory and/or Out of Bed No REE-([facility]-confined to bed) [phone] Calculation Used for Recommendations 70-80% energy needs Additional Notes Energy needs: 3387-6620 kcal/ day Pro needs 1.3g/kg adjBW: 130g/ day Fluid needs 1ml/kcal Nutrition Intervention Nutrition Support: Continue Glucerna 1.2 at 70ml/ hr with 110ml water flush q4h. Kcal 2,016 Protein (gm) 101 Carbohydrates (gm) 192 Fat (gm) 101 Fluid (mL) 1,352 Fiber (gm) 27 Goal #1 TF tolerance Goal #2 TF to meet at least 75% energy and pro needs Follow-Up By: 04/21/21 Additional Comments F/U: stable TF, vent status, wt
[2021-04-20] MEDS: INSULIN GLARGINE 100 UNITS/ML SUB-Q SCH (21:04)
[2021-04-21] MEDS: INSULIN LISPRO 100 UNIT/ML SUB-Q SCH ×4 (00:52→18:30)
[2021-04-21] MEDS: hydrALAZINE 25 MG TAB PO SCH ×3 (06:43→22:48)
[2021-04-21] MEDS: ARFORMOTEROL 15 MCG/2 ML NEBU IH SCH ×2 (08:27→20:45)
[2021-04-21] MEDS: BUDESONIDE 0.5 MG/2 ML NEBU IH SCH ×2 (08:27→20:45)
[2021-04-21] MEDS: GLYCOPYRROLATE 1 MG TAB PO SCH ×3 (09:05→22:47)
[2021-04-21] MEDS: METOPROLOL TARTRATE 25 MG TAB PO SCH ×2 (09:05→22:48)
[2021-04-21] MEDS: APIXABAN 5 MG TAB PO SCH ×2 (09:06→22:47)
[2021-04-21] MEDS: FAMOTIDINE 20 MG TAB FEEDTUBE SCH ×2 (09:06→22:47)
[2021-04-21] MEDS: amLODIPine 5 MG TAB PO SCH (09:06)
[2021-04-21] MEDS: DOXAZOSIN 1 MG TAB PO SCH ×2 (09:06→22:48)
[2021-04-21] MEDS: POLYETHYLENE GLYCOL 3350 17 GM POWDER FEEDTUBE SCH (09:07)
[2021-04-21] MEDS: FUROSEMIDE 40 MG/4 ML INJ IV SCH (09:07)
[2021-04-21 11:21] LABS: BUN/Creatinine Ratio TNR; Blood Urea Nitrogen TNR mg/dL (9-20); Calcium TNR mg/dL (8.4-10.2); Hemolysis Index TNR
--- NOTE | 2021-04-21 12:04 | Progress Note ---
Assessment and Plan Cultures: SARS CoV2 PCR: positive 03/08/2021 blood culture: no growth 03/10/2021 sputum culture: Usual respiratory marlyn 03/16/2021 blood culture: no growth 03/18/2021 sputum culture: Stenotrophomonas 03/31/2021 Blood culture: no growth 03/31/2021 tracheal aspirate: usual resp marlyn 04/14/2021 sputum culture: MSSA 04/14/2021 blood culture: No growth 04/14/2021 urine culture: No growth 04/15/2021 right middle lobe respiratory culture: MSSA A/P: 61-year-old male with diabetes, hypertension admitted to the hospital with complaints of shortness of breath and feeling weak for the last 1 week: #Sepsis secondary to bilateral pneumonia: secondary to COVID-19. Completed remdesivir, s/p Actemra, steroids. Completed abx for bacterial pneumonia, Stenotrophomonas. #MSSA pneumonia #Acute hypoxic respiratory failure: s/p trach and PEG. #DM #HTN #Acute DVT in RUE Recs: -continue higher dose cefazolin 3 g q8 hrs, may need a long course of abx (MSSA can cause severe pneumonia including necrotizing pneumonia) -monitor fever and WBC Sangita Nicole MD, FACP, [facility] ([facility] O: [phone] F: [phone] Subjective Date of service: 04/21/21 Principal diagnosis: COVID-19 infection; DM II; Bilateral pneumonia; Obesity; HTN Interval history: Awake, alert, on T-piece via trach. Afebrile. Copious secretions present, d/w RT at bedside. Objective - Exam Narrative Exam: Physical Exam Constitutional: awake, on T-piece Head, Ears, Nose: Normocephalic, atraumatic. External ears, nose normal Eyes: Conjunctivae/corneas clear. No icterus. Neck: trach + Cardiovascular: S1, S2 + Respiratory: AE fair with some rhonchi + GI: Soft, bowel sounds +, PEG + Musculoskeletal: edema + Skin: No rash or abscess Hem/Lymphatic: No palpable cervical or supraclavicular nodes. No lymphangitis Psych: no agitation Neurological: awake, responsive, limited eval due to trach - Constitutional Vitals: Vital Signs Temp Pulse Resp BP Pulse Ox 98.9 F 88 30 H 124/72 98 04/21/21 08:00 04/21/21 10:31 04/21/21 10:31 04/21/21 10:31 04/21/21 10:31 Temperature -Last 24 Hours Temperature 98.9 F Temperature 98.4 F Temperature 98.4 F Temperature 98.8 F Temperature 100.2 F Temperature 98.0 F - Labs CBC & Chem 7: 04/20/21 04:17 04/21/21 10:24 Labs: Abnormal lab results 04/20/21 04/20/21 04/21/21 Range/Units 16:01 23:54 04:39 POC Glucose 152 H 145 H 147 H (70-105) mg/dL 04/21/21 Range/Units 11:48 POC Glucose 154 H (70-105) mg/dL
--- NOTE | 2021-04-21 12:12 | Progress Note ---
Assessment and Plan Acute hypoxemic respiratory failure, on continuous noninvasive ventilation COVID-19 infection Bilateral pneumonia History of diabetes Obesity Hypertension Leukocytosis Possible venous thromboembolic phenomena with significantly elevated D-dimers DM II Elevated serum inflammatory markers to include CRP levels, ferritin and LDH - continue RTC t-piece as tolerated - continue Lasix 40 mg IV daily and follow electrolytes - continue LTAC evaluation - transfer to [facility] ok - continue care as below otherwise; - continue to wean supplemental oxygen for target O2 sat's > 90% acutely - aspiration precautions - continue lung protective strategies - continue bronchodilators with [facility] trach care and pulmonary hygiene per RT - wean per pulmonary driven protocols otherwise - continue accuchecks with glycemic control per SSI for target blood glucose < 180 mg/dL - avoid nephrotoxins, renally dose all medications - avoid benzodiazepine's, reduce the possibility of delirium - AB's per ID rec's - prn analgesia per pain score - Maintenance of sleep-wake cycle, avoid delirium - G.I. & VTE prophylaxis - PT/OT/ROM exercises - mobility protocols for pressure ulcer prophylaxis - Monitor hemodynamics closely - continue other care per attending / other consultants - discharge planning ongoing concurrently COVID SPECIFIC INTERVENTIONS - Remdesivir as per ID/Pulmonary developed protocols (received) - continue systemic steroids for severe COVID-19 infection empirically (Decadron) - follow repeat COVID tests results - zinc and vitamin C supplementation - Monitor inflammatory markers per facility protocol - ferritin, Ddimer, CRP - therapeutic anticoagulation per system Protocol based on d-dimer and clinical considerations (treatment dose) - contact and airborne isolation discontinued .... Re-evaluate in am & prn Subjective Date of service: 04/21/21 Principal diagnosis: COVID-19 infection; DM II; Bilateral pneumonia; Obesity; HTN Interval history: Patient is seen today for: Acute hypoxemic respiratory failure; COVID-19 infection; DM II; Bilateral pneumonia; Obesity; HTN Seen and examined at bedside; 24hour events reviewed; nursing and respiratory care staff consulted; no adverse overnight events reported to me; resting in bed; remains on RTC t-piece and tolerating well Objective Vital Signs - 12hr 04/21/21 04/21/21 04/21/21 00:31 01:00 01:31 Temperature Pulse Rate 95 H 94 H 95 H Pulse Rate [ Bilateral Throughout] Pulse Rate [ From Monitor] Respiratory 28 H 35 H 33 H Rate Respiratory Rate [Bilateral Throughout] Blood Pressure 121/66 119/68 119/68 O2 Sat by Pulse 98 99 99 Oximetry O2 Sat by Pulse Oximetry [ Assessment] 04/21/21 04/21/21 04/21/21 02:00 02:31 03:00 Temperature Pulse Rate 92 H 93 H 92 H Pulse Rate [ Bilateral Throughout] Pulse Rate [ From Monitor] Respiratory 31 H 30 H 28 H Rate Respiratory Rate [Bilateral Throughout] Blood Pressure 127/74 127/74 127/74 O2 Sat by Pulse 98 98 98 Oximetry O2 Sat by Pulse Oximetry [ Assessment] 04/21/21 04/21/21 04/21/21 03:17 03:31 04:00 Temperature 98.4 F 98.4 F Pulse Rate 89 Pulse Rate [ Bilateral Throughout] Pulse Rate [ 98 H From Monitor] Respiratory 30 H 36 H Rate Respiratory Rate [Bilateral Throughout] Blood Pressure 119/68 O2 Sat by Pulse 99 98 Oximetry O2 Sat by Pulse Oximetry [ Assessment] 04/21/21 04/21/21 04/21/21 04:01 04:30 04:31 Temperature Pulse Rate 91 H 88 Pulse Rate [ Bilateral Throughout] Pulse Rate [ From Monitor] Respiratory 30 H 22 Rate Respiratory Rate [Bilateral Throughout] Blood Pressure 128/72 128/72 O2 Sat by Pulse 99 99 99 Oximetry O2 Sat by Pulse Oximetry [ Assessment] 04/21/21 04/21/21 04/21/21 05:00 05:08 05:31 Temperature Pulse Rate 91 H 90 Pulse Rate [ Bilateral Throughout] Pulse Rate [ From Monitor] Respiratory 28 H 28 H Rate Respiratory Rate [Bilateral Throughout] Blood Pressure 130/71 130/71 O2 Sat by Pulse 99 98 Oximetry O2 Sat by Pulse 99 Oximetry [ Assessment] 04/21/21 04/21/21 04/21/21 06:00 06:31 06:43 Temperature Pulse Rate 88 90 90 Pulse Rate [ Bilateral Throughout] Pulse Rate [ From Monitor] Respiratory 21 27 H Rate Respiratory Rate [Bilateral Throughout] Blood Pressure 125/69 125/69 125/69 O2 Sat by Pulse 98 99 Oximetry O2 Sat by Pulse Oximetry [ Assessment] 04/21/21 04/21/21 04/21/21 07:00 07:31 08:00 Temperature 98.9 F Pulse Rate 89 91 H 93 H Pulse Rate [ Bilateral Throughout] Pulse Rate [ 98 H From Monitor] Respiratory 28 H 29 H 31 H Rate Respiratory Rate [Bilateral Throughout] Blood Pressure 131/76 131/76 126/72 O2 Sat by Pulse 99 99 99 Oximetry O2 Sat by Pulse Oximetry [ Assessment] 04/21/21 04/21/21 04/21/21 08:18 08:20 08:31 Temperature Pulse Rate 95 H Pulse Rate [ 92 H Bilateral Throughout] Pulse Rate [ From Monitor] Respiratory 25 H Rate Respiratory 30 H Rate [Bilateral Throughout] Blood Pressure 126/72 O2 Sat by Pulse 99 98 Oximetry O2 Sat by Pulse Oximetry [ Assessment] 04/21/21 04/21/21 04/21/21 09:00 09:05 09:06 Temperature Pulse Rate 96 H 95 H 94 H Pulse Rate [ Bilateral Throughout] Pulse Rate [ From Monitor] Respiratory 32 H Rate Respiratory Rate [Bilateral Throughout] Blood Pressure 126/69 126/69 126/69 O2 Sat by Pulse 98 Oximetry O2 Sat by Pulse Oximetry [ Assessment] 04/21/21 04/21/21 04/21/21 09:31 10:00 10:31 Temperature Pulse Rate 93 H 88 88 Pulse Rate [ Bilateral Throughout] Pulse Rate [ From Monitor] Respiratory 29 H 25 H 30 H Rate Respiratory Rate [Bilateral Throughout] Blood Pressure 126/69 124/72 124/72 O2 Sat by Pulse 97 98 98 Oximetry O2 Sat by Pulse Oximetry [ Assessment] Constitutional: no acute distress, other (elderly obese male with mildly increased respiratory effort at rest) Eyes: non-icteric, other ENT: oropharynx moist, other (+ midline tracheostomy) Neck: supple, no lymphadenopathy, lymphadenopathy, no JVD, other (large circumference) Effort: mildly labored Ascultation: Bilateral: diminished breath sounds, rhonchi Percussion: Bilateral: not dull Cardiovascular: regular rate and rhythm, other (tachycardia, S1,S2) Gastrointestinal: normoactive bowel sounds, soft, non-tender, non-distended (protuberant), other (Good in place) Integumentary: normal Extremities: no cyanosis, pulses normal, no ischemia or petechiae, edema (upper extremities), other Neurologic: non-focal exam (grossly), pupils equal and round, CN II-XII normal, other (follows simple prompts) Psychiatric: mood appropriate, affect normal CBC and BMP: 04/24/21 04:00 04/24/21 04:00 ABG, PT/INR, D-dimer: ABG ABG pH 7.469 pH Units (7.350-7.450) H 04/18/21 11:30 POC ABG pCO2 57.4 mmHg (32.0-48.0) H 04/06/21 04:49 ABG pCO2 50.9 mm Hg 04/18/21 11:30 POC ABG pO2 55.1 mmHg (83-108) L 04/06/21 04:49 ABG pO2 108.9 mm Hg (80.0-90.0) H 04/18/21 11:30 POC ABG HCO3 36.2 04/06/21 04:49 ABG O2 Saturation 98.0 % (95.0-99.0) 04/18/21 11:30 PT/INR, D-dimer PT 13.4 Sec. (12.2-14.9) 04/11/21 18:17 INR 0.92 (0.87-1.13) 04/11/21 18:17 D-Dimer 1359.12 ng/mlDDU (0-234) H 03/17/21 04:40 Abnormal lab findings: Abnormal Labs 03/08/21 03/08/21 03/08/21 20:24 20:24 20:24 WBC 22.6 H RBC 5.44 H Hgb 15.7 H Hct 49.2 H MCV MCHC RDW Plt Count Lymph % (Auto) [place] % (Auto) Lymph # (Auto) [place] # (Auto) Seg Neutrophils % Seg Neuts % (Manual) 83.0 H Lymphocytes % (Manual) 9.0 L Monocytes % (Manual) 8.0 H Nucleated RBC % Seg Neutrophils # Seg Neutrophils # Man 18.8 H Lymphocytes # (Manual) Monocytes # (Manual) 1.8 H PT 16.1 H INR 1.17 H APTT D-Dimer > 00698 H Heparin Anti-Xa Level ABG pH POC ABG pCO2 POC ABG pO2 ABG pO2 ABG HCO3 ABG O2 Saturation ABG Base Excess ABG Hemoglobin ABG Oxyhemoglobin ABG Sodium ABG Potassium ABG Glucose Oxyhemoglobin Sodium 136 L Potassium Chloride 93.9 L Carbon Dioxide BUN 29 H Creatinine Glucose 208 H POC Glucose Lactic Acid Calcium Phosphorus Magnesium Ferritin Lactate Dehydrogenase 624 H C-Reactive Protein 18.00 H NT-Pro-B Natriuret Pep 1053 H Total Protein Albumin Triglycerides Arterial Blood Glucose Urine pH Ur Specific [place] Coronavirus (PCR) 03/08/21 03/08/21 03/09/21 20:24 20:24 04:10 WBC RBC Hgb Hct MCV MCHC RDW Plt Count Lymph % (Auto) [place] % (Auto) Lymph # (Auto) [place] # (Auto) Seg Neutrophils % Seg Neuts % (Manual) Lymphocytes % (Manual) Monocytes % (Manual) Nucleated RBC % Seg Neutrophils # Seg Neutrophils # Man Lymphocytes # (Manual) Monocytes # (Manual) PT INR APTT D-Dimer Heparin Anti-Xa Level ABG pH POC ABG pCO2 POC ABG pO2 ABG pO2 ABG HCO3 ABG O2 Saturation ABG Base Excess ABG Hemoglobin ABG Oxyhemoglobin ABG Sodium ABG Potassium ABG Glucose Oxyhemoglobin Sodium Potassium Chloride Carbon Dioxide BUN Creatinine Glucose POC Glucose Lactic Acid 2.10 H* Calcium Phosphorus Magnesium Ferritin 877.5 H Lactate Dehydrogenase C-Reactive Protein NT-Pro-B Natriuret Pep Total Protein Albumin Triglycerides Arterial Blood Glucose Urine pH Ur Specific [place] 1.041 H Coronavirus (PCR) 03/09/21 03/09/21 03/09/21 07:46 08:00 13:01 WBC RBC Hgb Hct MCV MCHC RDW Plt Count Lymph % (Auto) [place] % (Auto) Lymph # (Auto) [place] # (Auto) Seg Neutrophils % Seg Neuts % (Manual) Lymphocytes % (Manual) Monocytes % (Manual) Nucleated RBC % Seg Neutrophils # Seg Neutrophils # Man Lymphocytes # (Manual) Monocytes # (Manual) PT INR APTT D-Dimer Heparin Anti-Xa Level ABG pH POC ABG pCO2 POC ABG pO2 ABG pO2 ABG HCO3 ABG O2 Saturation ABG Base Excess ABG Hemoglobin ABG Oxyhemoglobin ABG Sodium ABG Potassium ABG Glucose Oxyhemoglobin Sodium Potassium Chloride Carbon Dioxide BUN Creatinine Glucose POC Glucose 191 H 182 H Lactic Acid Calcium Phosphorus Magnesium Ferritin Lactate Dehydrogenase C-Reactive Protein NT-Pro-B Natriuret Pep Total Protein Albumin Triglycerides Arterial Blood Glucose Urine pH Ur Specific [place] Coronavirus (PCR) Positive A 03/09/21 03/09/21 03/09/21 15:19 17:48 18:10 WBC RBC Hgb Hct MCV MCHC RDW Plt Count Lymph % (Auto) [place] % (Auto) Lymph # (Auto) [place] # (Auto) Seg Neutrophils % Seg Neuts % (Manual) Lymphocytes % (Manual) Monocytes % (Manual) Nucleated RBC % Seg Neutrophils # Seg Neutrophils # Man Lymphocytes # (Manual) Monocytes # (Manual) PT INR APTT D-Dimer Heparin Anti-Xa Level ABG pH POC ABG pCO2 POC ABG pO2 ABG pO2 47.3 L ABG HCO3 26.3 H ABG O2 Saturation 83.7 L ABG Base Excess ABG Hemoglobin ABG Oxyhemoglobin ABG Sodium ABG Potassium ABG Glucose Oxyhemoglobin 82.1 L Sodium Potassium Chloride Carbon Dioxide BUN 29 H Creatinine Glucose 214 H POC Glucose 194 H Lactic Acid Calcium Phosphorus Magnesium Ferritin Lactate Dehydrogenase C-Reactive Protein NT-Pro-B Natriuret Pep Total Protein Albumin 3.4 L Triglycerides Arterial Blood Glucose Urine pH Ur Specific [place] Coronavirus (PCR) 03/09/21 03/10/21 03/10/21 20:40 04:29 04:29 WBC 20.6 H RBC 5.07 H Hgb Hct 46.2 H MCV MCHC RDW Plt Count Lymph % (Auto) [place] % (Auto) Lymph # (Auto) [place] # (Auto) Seg Neutrophils % Seg Neuts % (Manual) 94.0 H Lymphocytes % (Manual) 1.0 L Monocytes % (Manual) Nucleated RBC % 3.0 H Seg Neutrophils # Seg Neutrophils # Man 19.4 H Lymphocytes # (Manual) 0.2 L Monocytes # (Manual) 1.0 H PT INR APTT D-Dimer Heparin Anti-Xa Level ABG pH POC ABG pCO2 POC ABG pO2 ABG pO2 ABG HCO3 ABG O2 Saturation ABG Base Excess ABG Hemoglobin ABG Oxyhemoglobin ABG Sodium ABG Potassium ABG Glucose Oxyhemoglobin Sodium Potassium Chloride Carbon Dioxide BUN 29 H Creatinine Glucose 188 H POC Glucose 176 H Lactic Acid Calcium Phosphorus Magnesium Ferritin Lactate Dehydrogenase C-Reactive Protein NT-Pro-B Natriuret Pep Total Protein Albumin 3.3 L Triglycerides Arterial Blood Glucose Urine pH Ur Specific [place] Coronavirus (PCR) 03/10/21 03/10/21 03/10/21 05:22 10:27 15:25 WBC RBC Hgb Hct MCV MCHC RDW Plt Count Lymph % (Auto) [place] % (Auto) Lymph # (Auto) [place] # (Auto) Seg Neutrophils % Seg Neuts % (Manual) Lymphocytes % (Manual) Monocytes % (Manual) Nucleated RBC % Seg Neutrophils # Seg Neutrophils # Man Lymphocytes # (Manual) Monocytes # (Manual) PT INR APTT D-Dimer Heparin Anti-Xa Level ABG pH 7.488 H 7.488 H POC ABG pCO2 POC ABG pO2 ABG pO2 47.7 L 50.5 L ABG HCO3 ABG O2 Saturation 86.2 L 87.9 L ABG Base Excess ABG Hemoglobin ABG Oxyhemoglobin ABG Sodium ABG Potassium ABG Glucose Oxyhemoglobin 84.6 L 86.2 L Sodium Potassium Chloride Carbon Dioxide BUN Creatinine Glucose POC Glucose 155 H Lactic Acid Calcium Phosphorus Magnesium Ferritin Lactate Dehydrogenase C-Reactive Protein NT-Pro-B Natriuret Pep Total Protein Albumin Triglycerides Arterial Blood Glucose Urine pH Ur Specific [place] Coronavirus (PCR) 03/10/21 03/10/21 03/11/21 18:10 18:55 00:07 WBC RBC Hgb Hct MCV MCHC RDW Plt Count Lymph % (Auto) [place] % (Auto) Lymph # (Auto) [place] # (Auto) Seg Neutrophils % Seg Neuts % (Manual) Lymphocytes % (Manual) Monocytes % (Manual) Nucleated RBC % Seg Neutrophils # Seg Neutrophils # Man Lymphocytes # (Manual) Monocytes # (Manual) PT INR APTT D-Dimer Heparin Anti-Xa Level ABG pH 7.343 L POC ABG pCO2 POC ABG pO2 ABG pO2 60.4 L ABG HCO3 27.9 H ABG O2 Saturation 88.7 L ABG Base Excess ABG Hemoglobin ABG Oxyhemoglobin ABG Sodium ABG Potassium ABG Glucose Oxyhemoglobin 86.9 L Sodium Potassium Chloride Carbon Dioxide BUN Creatinine Glucose POC Glucose 187 H 139 H Lactic Acid Calcium Phosphorus Magnesium Ferritin Lactate Dehydrogenase C-Reactive Protein NT-Pro-B Natriuret Pep Total Protein Albumin Triglycerides Arterial Blood Glucose Urine pH Ur Specific [place] Coronavirus (PCR) 03/11/21 03/11/21 03/11/21 02:09 04:28 08:06 WBC RBC Hgb Hct MCV MCHC RDW Plt Count Lymph % (Auto) [place] % (Auto) Lymph # (Auto) [place] # (Auto) Seg Neutrophils % Seg Neuts % (Manual) Lymphocytes % (Manual) Monocytes % (Manual) Nucleated RBC % Seg Neutrophils # Seg Neutrophils # Man Lymphocytes # (Manual) Monocytes # (Manual) PT INR APTT D-Dimer Heparin Anti-Xa Level ABG pH 7.277 L POC ABG pCO2 55.9 H POC ABG pO2 54.4 L ABG pO2 ABG HCO3 ABG O2 Saturation ABG Base Excess ABG Hemoglobin ABG Oxyhemoglobin 83.0 L ABG Sodium ABG Potassium 4.8 H ABG Glucose 180 H Oxyhemoglobin Sodium Potassium Chloride Carbon Dioxide BUN 38 H Creatinine Glucose 249 H POC Glucose 278 H Lactic Acid Calcium Phosphorus Magnesium Ferritin Lactate Dehydrogenase C-Reactive Protein NT-Pro-B Natriuret Pep Total Protein Albumin 3.2 L Triglycerides Arterial Blood Glucose 180 H Urine pH Ur Specific [place] Coronavirus (PCR) 03/11/21 03/11/21 03/11/21 11:29 15:06 15:48 WBC RBC Hgb Hct MCV MCHC RDW Plt Count Lymph % (Auto) [place] % (Auto) Lymph # (Auto) [place] # (Auto) Seg Neutrophils % Seg Neuts % (Manual) Lymphocytes % (Manual) Monocytes % (Manual) Nucleated RBC % Seg Neutrophils # Seg Neutrophils # Man Lymphocytes # (Manual) Monocytes # (Manual) PT INR APTT D-Dimer Heparin Anti-Xa Level ABG pH 7.260 L POC ABG pCO2 POC ABG pO2 ABG pO2 53.5 L ABG HCO3 29.5 H ABG O2 Saturation 84.0 L ABG Base Excess ABG Hemoglobin ABG Oxyhemoglobin ABG Sodium ABG Potassium ABG Glucose Oxyhemoglobin 82.3 L Sodium Potassium Chloride Carbon Dioxide BUN Creatinine Glucose POC Glucose 288 H 295 H Lactic Acid Calcium Phosphorus Magnesium Ferritin Lactate Dehydrogenase C-Reactive Protein NT-Pro-B Natriuret Pep Total Protein Albumin Triglycerides Arterial Blood Glucose Urine pH Ur Specific [place] Coronavirus (PCR) 03/12/21 03/12/21 03/12/21 00:01 05:24 08:03 WBC RBC Hgb Hct MCV MCHC RDW Plt Count Lymph % (Auto) [place] % (Auto) Lymph # (Auto) [place] # (Auto) Seg Neutrophils % Seg Neuts % (Manual) Lymphocytes % (Manual) Monocytes % (Manual) Nucleated RBC % Seg Neutrophils # Seg Neutrophils # Man Lymphocytes # (Manual) Monocytes # (Manual) PT INR APTT D-Dimer Heparin Anti-Xa Level ABG pH POC ABG pCO2 POC ABG pO2 ABG pO2 ABG HCO3 ABG O2 Saturation ABG Base Excess ABG Hemoglobin ABG Oxyhemoglobin ABG Sodium ABG Potassium ABG Glucose Oxyhemoglobin Sodium 135 L Potassium Chloride Carbon Dioxide BUN 48 H Creatinine Glucose 358 H POC Glucose 304 H 310 H Lactic Acid Calcium Phosphorus Magnesium Ferritin Lactate Dehydrogenase C-Reactive Protein NT-Pro-B Natriuret Pep Total Protein 6.0 L Albumin 2.9 L Triglycerides Arterial Blood Glucose Urine pH Ur Specific [place] Coronavirus (PCR) 03/12/21 03/12/21 03/12/21 08:03 10:43 11:31 WBC 14.6 H RBC Hgb Hct MCV MCHC RDW Plt Count Lymph % (Auto) [place] % (Auto) Lymph # (Auto) [place] # (Auto) Seg Neutrophils % Seg Neuts % (Manual) Lymphocytes % (Manual) Monocytes % (Manual) Nucleated RBC % Seg Neutrophils # Seg Neutrophils # Man Lymphocytes # (Manual) Monocytes # (Manual) PT INR APTT D-Dimer Heparin Anti-Xa Level ABG pH 7.248 L POC ABG pCO2 POC ABG pO2 ABG pO2 73.7 L ABG HCO3 32.0 H ABG O2 Saturation 93.9 L ABG Base Excess ABG Hemoglobin ABG Oxyhemoglobin ABG Sodium ABG Potassium ABG Glucose Oxyhemoglobin 92.1 L Sodium Potassium Chloride Carbon Dioxide BUN Creatinine Glucose POC Glucose 359 H Lactic Acid Calcium Phosphorus Magnesium Ferritin Lactate Dehydrogenase C-Reactive Protein NT-Pro-B Natriuret Pep Total Protein Albumin Triglycerides Arterial Blood Glucose Urine pH Ur Specific [place] Coronavirus (PCR) 03/12/21 03/12/21 03/13/21 17:20 21:54 00:02 WBC RBC Hgb Hct MCV MCHC RDW Plt Count Lymph % (Auto) [place] % (Auto) Lymph # (Auto) [place] # (Auto) Seg Neutrophils % Seg Neuts % (Manual) Lymphocytes % (Manual) Monocytes % (Manual) Nucleated RBC % Seg Neutrophils # Seg Neutrophils # Man Lymphocytes # (Manual) Monocytes # (Manual) PT INR APTT D-Dimer Heparin Anti-Xa Level ABG pH 7.238 L POC ABG pCO2 71.9 H POC ABG pO2 53.6 L ABG pO2 ABG HCO3 ABG O2 Saturation ABG Base Excess ABG Hemoglobin ABG Oxyhemoglobin 84.8 L ABG Sodium 134.2 L ABG Potassium 4.9 H ABG Glucose 306 H Oxyhemoglobin Sodium Potassium Chloride Carbon Dioxide BUN Creatinine Glucose POC Glucose 374 H 308 H Lactic Acid Calcium Phosphorus Magnesium Ferritin Lactate Dehydrogenase C-Reactive Protein NT-Pro-B Natriuret Pep Total Protein Albumin Triglycerides Arterial Blood Glucose 306 H Urine pH Ur Specific [place] Coronavirus (PCR) 03/13/21 03/13/21 03/13/21 05:22 05:44 05:44 WBC 13.9 H RBC Hgb Hct MCV MCHC RDW Plt Count Lymph % (Auto) [place] % (Auto) Lymph # (Auto) [place] # (Auto) Seg Neutrophils % Seg Neuts % (Manual) Lymphocytes % (Manual) Monocytes % (Manual) Nucleated RBC % Seg Neutrophils # Seg Neutrophils # Man Lymphocytes # (Manual) Monocytes # (Manual) PT INR APTT D-Dimer 3567.97 H Heparin Anti-Xa Level ABG pH POC ABG pCO2 POC ABG pO2 ABG pO2 ABG HCO3 ABG O2 Saturation ABG Base Excess ABG Hemoglobin ABG Oxyhemoglobin ABG Sodium ABG Potassium ABG Glucose Oxyhemoglobin Sodium Potassium Chloride Carbon Dioxide BUN Creatinine Glucose POC Glucose 316 H Lactic Acid Calcium Phosphorus Magnesium Ferritin Lactate Dehydrogenase C-Reactive Protein NT-Pro-B Natriuret Pep Total Protein Albumin Triglycerides Arterial Blood Glucose Urine pH Ur Specific [place] Coronavirus (PCR) 03/13/21 03/13/21 03/13/21 05:44 05:44 11:15 WBC RBC Hgb Hct MCV MCHC RDW Plt Count Lymph % (Auto) [place] % (Auto) Lymph # (Auto) [place] # (Auto) Seg Neutrophils % Seg Neuts % (Manual) Lymphocytes % (Manual) Monocytes % (Manual) Nucleated RBC % Seg Neutrophils # Seg Neutrophils # Man Lymphocytes # (Manual) Monocytes # (Manual) PT INR APTT D-Dimer Heparin Anti-Xa Level ABG pH 7.310 L POC ABG pCO2 POC ABG pO2 ABG pO2 52.3 L ABG HCO3 34.1 H ABG O2 Saturation 86.8 L ABG Base Excess 5.5 H ABG Hemoglobin 13.8 L ABG Oxyhemoglobin ABG Sodium ABG Potassium ABG Glucose Oxyhemoglobin 85.1 L Sodium Potassium Chloride Carbon Dioxide BUN Creatinine Glucose POC Glucose Lactic Acid Calcium Phosphorus Magnesium Ferritin 858.7 H Lactate Dehydrogenase 348 H C-Reactive Protein 2.80 H NT-Pro-B Natriuret Pep Total Protein Albumin Triglycerides Arterial Blood Glucose Urine pH Ur Specific [place] Coronavirus (PCR) 03/13/21 03/13/21 03/13/21 11:21 15:47 19:23 WBC RBC Hgb Hct MCV MCHC RDW Plt Count Lymph % (Auto) [place] % (Auto) Lymph # (Auto) [place] # (Auto) Seg Neutrophils % Seg Neuts % (Manual) Lymphocytes % (Manual) Monocytes % (Manual) Nucleated RBC % Seg Neutrophils # Seg Neutrophils # Man Lymphocytes # (Manual) Monocytes # (Manual) PT INR APTT D-Dimer Heparin Anti-Xa Level ABG pH POC ABG pCO2 POC ABG pO2 ABG pO2 ABG HCO3 ABG O2 Saturation ABG Base Excess ABG Hemoglobin ABG Oxyhemoglobin ABG Sodium ABG Potassium ABG Glucose Oxyhemoglobin Sodium 136 L Potassium 5.9 H Chloride Carbon Dioxide BUN 50 H Creatinine Glucose 397 H POC Glucose 322 H 317 H Lactic Acid Calcium Phosphorus Magnesium Ferritin Lactate Dehydrogenase C-Reactive Protein NT-Pro-B Natriuret Pep Total Protein Albumin Triglycerides Arterial Blood Glucose Urine pH Ur Specific [place] Coronavirus (PCR) 03/13/21 03/14/21 03/14/21 23:46 05:32 05:50 WBC 11.6 H RBC Hgb Hct MCV MCHC RDW Plt Count Lymph % (Auto) [place] % (Auto) Lymph # (Auto) [place] # (Auto) Seg Neutrophils % Seg Neuts % (Manual) Lymphocytes % (Manual) Monocytes % (Manual) Nucleated RBC % Seg Neutrophils # Seg Neutrophils # Man Lymphocytes # (Manual) Monocytes # (Manual) PT INR APTT D-Dimer Heparin Anti-Xa Level ABG pH POC ABG pCO2 POC ABG pO2 ABG pO2 ABG HCO3 ABG O2 Saturation ABG Base Excess ABG Hemoglobin ABG Oxyhemoglobin ABG Sodium ABG Potassium ABG Glucose Oxyhemoglobin Sodium Potassium Chloride Carbon Dioxide BUN Creatinine Glucose POC Glucose 332 H 316 H Lactic Acid Calcium Phosphorus Magnesium Ferritin Lactate Dehydrogenase C-Reactive Protein NT-Pro-B Natriuret Pep Total Protein Albumin Triglycerides Arterial Blood Glucose Urine pH Ur Specific [place] Coronavirus (PCR) 03/14/21 03/14/21 03/14/21 05:50 11:33 16:53 WBC RBC Hgb Hct MCV MCHC RDW Plt Count Lymph % (Auto) [place] % (Auto) Lymph # (Auto) [place] # (Auto) Seg Neutrophils % Seg Neuts % (Manual) Lymphocytes % (Manual) Monocytes % (Manual) Nucleated RBC % Seg Neutrophils # Seg Neutrophils # Man Lymphocytes # (Manual) Monocytes # (Manual) PT INR APTT D-Dimer Heparin Anti-Xa Level ABG pH POC ABG pCO2 POC ABG pO2 ABG pO2 ABG HCO3 ABG O2 Saturation ABG Base Excess ABG Hemoglobin ABG Oxyhemoglobin ABG Sodium ABG Potassium ABG Glucose Oxyhemoglobin Sodium Potassium 5.9 H Chloride Carbon Dioxide 31 H BUN 48 H Creatinine Glucose 380 H POC Glucose 315 H 235 H Lactic Acid Calcium Phosphorus Magnesium 3.40 H Ferritin Lactate Dehydrogenase C-Reactive Protein NT-Pro-B Natriuret Pep Total Protein Albumin Triglycerides Arterial Blood Glucose Urine pH Ur Specific [place] Coronavirus (PCR) 03/14/21 03/14/21 03/15/21 18:34 23:27 01:22 WBC RBC Hgb Hct 46.3 H MCV MCHC RDW Plt Count Lymph % (Auto) [place] % (Auto) Lymph # (Auto) [place] # (Auto) Seg Neutrophils % Seg Neuts % (Manual) Lymphocytes % (Manual) Monocytes % (Manual) Nucleated RBC % Seg Neutrophils # Seg Neutrophils # Man Lymphocytes # (Manual) Monocytes # (Manual) PT INR APTT D-Dimer Heparin Anti-Xa Level ABG pH POC ABG pCO2 POC ABG pO2 ABG pO2 ABG HCO3 ABG O2 Saturation ABG Base Excess ABG Hemoglobin ABG Oxyhemoglobin ABG Sodium ABG Potassium ABG Glucose Oxyhemoglobin Sodium 146 H Potassium Chloride Carbon Dioxide 34 H BUN 49 H Creatinine Glucose 285 H POC Glucose 203 H Lactic Acid Calcium Phosphorus Magnesium Ferritin Lactate Dehydrogenase C-Reactive Protein NT-Pro-B Natriuret Pep Total Protein Albumin Triglycerides Arterial Blood Glucose Urine pH Ur Specific [place] Coronavirus (PCR) 03/15/21 03/15/21 03/15/21 04:00 06:06 06:06 WBC RBC Hgb Hct MCV MCHC RDW Plt Count Lymph % (Auto) [place] % (Auto) Lymph # (Auto) [place] # (Auto) Seg Neutrophils % Seg Neuts % (Manual) Lymphocytes % (Manual) Monocytes % (Manual) Nucleated RBC % Seg Neutrophils # Seg Neutrophils # Man Lymphocytes # (Manual) Monocytes # (Manual) PT INR APTT D-Dimer 1781.79 H Heparin Anti-Xa Level ABG pH POC ABG pCO2 POC ABG pO2 ABG pO2 ABG HCO3 ABG O2 Saturation ABG Base Excess ABG Hemoglobin ABG Oxyhemoglobin ABG Sodium ABG Potassium ABG Glucose Oxyhemoglobin Sodium 148 H Potassium 5.7 H D Chloride 108.0 H Carbon Dioxide 31 H BUN 46 H Creatinine Glucose 139 H POC Glucose Lactic Acid Calcium Phosphorus 4.80 H D Magnesium 3.00 H Ferritin 976.4 H Lactate Dehydrogenase 630 H C-Reactive Protein NT-Pro-B Natriuret Pep Total Protein Albumin Triglycerides Arterial Blood Glucose Urine pH Ur Specific [place] Coronavirus (PCR) 03/15/21 03/15/21 03/15/21 11:56 14:05 17:09 WBC RBC Hgb Hct MCV MCHC RDW Plt Count Lymph % (Auto) [place] % (Auto) Lymph # (Auto) [place] # (Auto) Seg Neutrophils % Seg Neuts % (Manual) Lymphocytes % (Manual) Monocytes % (Manual) Nucleated RBC % Seg Neutrophils # Seg Neutrophils # Man Lymphocytes # (Manual) Monocytes # (Manual) PT INR APTT D-Dimer Heparin Anti-Xa Level ABG pH POC ABG pCO2 POC ABG pO2 ABG pO2 52.1 L ABG HCO3 36.6 H ABG O2 Saturation 87.6 L ABG Base Excess 9.5 H ABG Hemoglobin ABG Oxyhemoglobin ABG Sodium ABG Potassium ABG Glucose Oxyhemoglobin 85.7 L Sodium Potassium Chloride Carbon Dioxide BUN Creatinine Glucose POC Glucose 219 H 263 H Lactic Acid Calcium Phosphorus Magnesium Ferritin Lactate Dehydrogenase C-Reactive Protein NT-Pro-B Natriuret Pep Total Protein Albumin Triglycerides Arterial Blood Glucose Urine pH Ur Specific [place] Coronavirus (PCR) 03/16/21 03/16/21 03/16/21 00:32 04:11 04:11 WBC 11.9 H RBC Hgb Hct MCV MCHC 30 L RDW Plt Count Lymph % (Auto) [place] % (Auto) Lymph # (Auto) [place] # (Auto) Seg Neutrophils % Seg Neuts % (Manual) Lymphocytes % (Manual) Monocytes % (Manual) Nucleated RBC % Seg Neutrophils # Seg Neutrophils # Man Lymphocytes # (Manual) Monocytes # (Manual) PT INR APTT D-Dimer Heparin Anti-Xa Level ABG pH POC ABG pCO2 POC ABG pO2 ABG pO2 ABG HCO3 ABG O2 Saturation ABG Base Excess ABG Hemoglobin ABG Oxyhemoglobin ABG Sodium ABG Potassium ABG Glucose Oxyhemoglobin Sodium 151 H Potassium Chloride Carbon Dioxide 35 H BUN 48 H Creatinine Glucose 152 H POC Glucose 165 H Lactic Acid Calcium Phosphorus Magnesium Ferritin Lactate Dehydrogenase C-Reactive Protein NT-Pro-B Natriuret Pep Total Protein Albumin Triglycerides Arterial Blood Glucose Urine pH Ur Specific [place] Coronavirus (PCR) 03/16/21 03/16/21 03/16/21 04:11 05:26 11:35 WBC RBC Hgb Hct MCV MCHC RDW Plt Count Lymph % (Auto) [place] % (Auto) Lymph # (Auto) [place] # (Auto) Seg Neutrophils % Seg Neuts % (Manual) Lymphocytes % (Manual) Monocytes % (Manual) Nucleated RBC % Seg Neutrophils # Seg Neutrophils # Man Lymphocytes # (Manual) Monocytes # (Manual) PT INR APTT D-Dimer Heparin Anti-Xa Level ABG pH POC ABG pCO2 POC ABG pO2 ABG pO2 ABG HCO3 ABG O2 Saturation ABG Base Excess ABG Hemoglobin ABG Oxyhemoglobin ABG Sodium ABG Potassium ABG Glucose Oxyhemoglobin Sodium Potassium Chloride Carbon Dioxide BUN Creatinine Glucose POC Glucose 162 H 187 H Lactic Acid Calcium Phosphorus Magnesium Ferritin Lactate Dehydrogenase C-Reactive Protein NT-Pro-B Natriuret Pep Total Protein Albumin Triglycerides 267 H Arterial Blood Glucose Urine pH Ur Specific [place] Coronavirus (PCR) 03/16/21 03/16/21 03/16/21 17:29 22:25 23:22 WBC RBC Hgb Hct MCV MCHC RDW Plt Count Lymph % (Auto) [place] % (Auto) Lymph # (Auto) [place] # (Auto) Seg Neutrophils % Seg Neuts % (Manual) Lymphocytes % (Manual) Monocytes % (Manual) Nucleated RBC % Seg Neutrophils # Seg Neutrophils # Man Lymphocytes # (Manual) Monocytes # (Manual) PT INR APTT D-Dimer Heparin Anti-Xa Level ABG pH POC ABG pCO2 POC ABG pO2 ABG pO2 ABG HCO3 ABG O2 Saturation ABG Base Excess ABG Hemoglobin ABG Oxyhemoglobin ABG Sodium ABG Potassium ABG Glucose Oxyhemoglobin Sodium Potassium Chloride Carbon Dioxide BUN Creatinine Glucose POC Glucose 237 H 165 H 189 H Lactic Acid Calcium Phosphorus Magnesium Ferritin Lactate Dehydrogenase C-Reactive Protein NT-Pro-B Natriuret Pep Total Protein Albumin Triglycerides Arterial Blood Glucose Urine pH Ur Specific [place] Coronavirus (PCR) 03/17/21 03/17/21 03/17/21 04:40 04:40 04:40 WBC 14.1 H RBC Hgb Hct MCV MCHC RDW 15.3 H Plt Count Lymph % (Auto) 12.6 L [place] % (Auto) 11.3 H Lymph # (Auto) [place] # (Auto) 1.6 H Seg Neutrophils % 74.9 H Seg Neuts % (Manual) Lymphocytes % (Manual) Monocytes % (Manual) Nucleated RBC % Seg Neutrophils # 10.5 H Seg Neutrophils # Man Lymphocytes # (Manual) Monocytes # (Manual) PT INR APTT D-Dimer 1359.12 H Heparin Anti-Xa Level ABG pH POC ABG pCO2 POC ABG pO2 ABG pO2 ABG HCO3 ABG O2 Saturation ABG Base Excess ABG Hemoglobin ABG Oxyhemoglobin ABG Sodium ABG Potassium ABG Glucose Oxyhemoglobin Sodium 148 H Potassium Chloride 107.5 H Carbon Dioxide 33 H BUN 42 H Creatinine Glucose 183 H POC Glucose Lactic Acid Calcium Phosphorus Magnesium 2.70 H Ferritin Lactate Dehydrogenase C-Reactive Protein NT-Pro-B Natriuret Pep Total Protein Albumin Triglycerides Arterial Blood Glucose Urine pH Ur Specific [place] Coronavirus (PCR) 03/17/21 03/17/21 03/17/21 05:53 11:05 11:51 WBC RBC Hgb Hct MCV MCHC RDW Plt Count Lymph % (Auto) [place] % (Auto) Lymph # (Auto) [place] # (Auto) Seg Neutrophils % Seg Neuts % (Manual) Lymphocytes % (Manual) Monocytes % (Manual) Nucleated RBC % Seg Neutrophils # Seg Neutrophils # Man Lymphocytes # (Manual) Monocytes # (Manual) PT INR APTT D-Dimer Heparin Anti-Xa Level ABG pH POC ABG pCO2 POC ABG pO2 ABG pO2 ABG HCO3 35.7 H ABG O2 Saturation ABG Base Excess 8.7 H ABG Hemoglobin ABG Oxyhemoglobin ABG Sodium ABG Potassium ABG Glucose Oxyhemoglobin 94.2 L Sodium Potassium Chloride Carbon Dioxide BUN Creatinine Glucose POC Glucose 176 H 197 H Lactic Acid Calcium Phosphorus Magnesium Ferritin Lactate Dehydrogenase C-Reactive Protein NT-Pro-B Natriuret Pep Total Protein Albumin Triglycerides Arterial Blood Glucose Urine pH Ur Specific [place] Coronavirus (PCR) 03/17/21 03/17/21 03/17/21 16:54 21:10 23:33 WBC RBC Hgb Hct MCV MCHC RDW Plt Count Lymph % (Auto) [place] % (Auto) Lymph # (Auto) [place] # (Auto) Seg Neutrophils % Seg Neuts % (Manual) Lymphocytes % (Manual) Monocytes % (Manual) Nucleated RBC % Seg Neutrophils # Seg Neutrophils # Man Lymphocytes # (Manual) Monocytes # (Manual) PT INR APTT D-Dimer Heparin Anti-Xa Level ABG pH POC ABG pCO2 POC ABG pO2 ABG pO2 ABG HCO3 ABG O2 Saturation ABG Base Excess ABG Hemoglobin ABG Oxyhemoglobin ABG Sodium ABG Potassium ABG Glucose Oxyhemoglobin Sodium Potassium Chloride Carbon Dioxide BUN Creatinine Glucose POC Glucose 135 H 160 H 138 H Lactic Acid Calcium Phosphorus Magnesium Ferritin Lactate Dehydrogenase C-Reactive Protein NT-Pro-B Natriuret Pep Total Protein Albumin Triglycerides Arterial Blood Glucose Urine pH Ur Specific [place] Coronavirus (PCR) 03/18/21 03/18/21 03/18/21 04:18 04:50 05:43 WBC RBC Hgb Hct MCV MCHC RDW Plt Count Lymph % (Auto) [place] % (Auto) Lymph # (Auto) [place] # (Auto) Seg Neutrophils % Seg Neuts % (Manual) Lymphocytes % (Manual) Monocytes % (Manual) Nucleated RBC % Seg Neutrophils # Seg Neutrophils # Man Lymphocytes # (Manual) Monocytes # (Manual) PT INR APTT D-Dimer Heparin Anti-Xa Level ABG pH POC ABG pCO2 POC ABG pO2 ABG pO2 59.8 L ABG HCO3 36.5 H ABG O2 Saturation 90.7 L ABG Base Excess 9.4 H ABG Hemoglobin 12.0 L ABG Oxyhemoglobin ABG Sodium ABG Potassium ABG Glucose Oxyhemoglobin 88.9 L Sodium Potassium Chloride 107.2 H Carbon Dioxide 34 H BUN 38 H Creatinine 0.7 L Glucose 136 H POC Glucose 128 H Lactic Acid Calcium Phosphorus Magnesium Ferritin Lactate Dehydrogenase C-Reactive Protein NT-Pro-B Natriuret Pep Total Protein Albumin Triglycerides Arterial Blood Glucose Urine pH Ur Specific [place] Coronavirus (PCR) 03/18/21 03/18/21 03/18/21 11:20 17:35 23:35 WBC RBC Hgb Hct MCV MCHC RDW Plt Count Lymph % (Auto) [place] % (Auto) Lymph # (Auto) [place] # (Auto) Seg Neutrophils % Seg Neuts % (Manual) Lymphocytes % (Manual) Monocytes % (Manual) Nucleated RBC % Seg Neutrophils # Seg Neutrophils # Man Lymphocytes # (Manual) Monocytes # (Manual) PT INR APTT D-Dimer Heparin Anti-Xa Level ABG pH POC ABG pCO2 POC ABG pO2 ABG pO2 70.7 L ABG HCO3 33.6 H ABG O2 Saturation ABG Base Excess 8.0 H ABG Hemoglobin ABG Oxyhemoglobin ABG Sodium ABG Potassium ABG Glucose Oxyhemoglobin 93.7 L Sodium Potassium Chloride Carbon Dioxide BUN Creatinine Glucose POC Glucose 189 H 144 H Lactic Acid Calcium Phosphorus Magnesium Ferritin Lactate Dehydrogenase C-Reactive Protein NT-Pro-B Natriuret Pep Total Protein Albumin Triglycerides Arterial Blood Glucose Urine pH Ur Specific [place] Coronavirus (PCR) 03/19/21 03/19/21 03/19/21 02:35 04:20 04:20 WBC 14.0 H RBC Hgb Hct MCV MCHC RDW Plt Count Lymph % (Auto) [place] % (Auto) Lymph # (Auto) [place] # (Auto) Seg Neutrophils % Seg Neuts % (Manual) Lymphocytes % (Manual) Monocytes % (Manual) Nucleated RBC % Seg Neutrophils # Seg Neutrophils # Man Lymphocytes # (Manual) Monocytes # (Manual) PT INR APTT D-Dimer Heparin Anti-Xa Level ABG pH POC ABG pCO2 POC ABG pO2 ABG pO2 ABG HCO3 32.0 H ABG O2 Saturation ABG Base Excess 5.2 H ABG Hemoglobin 13.6 L ABG Oxyhemoglobin ABG Sodium ABG Potassium ABG Glucose Oxyhemoglobin 94.6 L Sodium 146 H Potassium Chloride 109.3 H Carbon Dioxide BUN 36 H Creatinine Glucose 203 H POC Glucose Lactic Acid Calcium Phosphorus Magnesium Ferritin Lactate Dehydrogenase C-Reactive Protein NT-Pro-B Natriuret Pep Total Protein Albumin Triglycerides 254 H Arterial Blood Glucose Urine pH Ur Specific [place] Coronavirus (PCR) 03/19/21 03/19/21 03/19/21 05:45 11:36 23:51 WBC RBC Hgb Hct MCV MCHC RDW Plt Count Lymph % (Auto) [place] % (Auto) Lymph # (Auto) [place] # (Auto) Seg Neutrophils % Seg Neuts % (Manual) Lymphocytes % (Manual) Monocytes % (Manual) Nucleated RBC % Seg Neutrophils # Seg Neutrophils # Man Lymphocytes # (Manual) Monocytes # (Manual) PT INR APTT D-Dimer Heparin Anti-Xa Level ABG pH POC ABG pCO2 POC ABG pO2 ABG pO2 ABG HCO3 ABG O2 Saturation ABG Base Excess ABG Hemoglobin ABG Oxyhemoglobin ABG Sodium ABG Potassium ABG Glucose Oxyhemoglobin Sodium Potassium Chloride Carbon Dioxide BUN Creatinine Glucose POC Glucose 164 H 172 H 140 H Lactic Acid Calcium Phosphorus Magnesium Ferritin Lactate Dehydrogenase C-Reactive Protein NT-Pro-B Natriuret Pep Total Protein Albumin Triglycerides Arterial Blood Glucose Urine pH Ur Specific [place] Coronavirus (PCR) 01/03/20/21 03/20/21 03:29 04:45 04:45 WBC RBC Hgb Hct MCV 95 H MCHC RDW 15.7 H Plt Count Lymph % (Auto) [place] % (Auto) Lymph # (Auto) [place] # (Auto) Seg Neutrophils % Seg Neuts % (Manual) Lymphocytes % (Manual) Monocytes % (Manual) Nucleated RBC % Seg Neutrophils # Seg Neutrophils # Man Lymphocytes # (Manual) Monocytes # (Manual) PT INR APTT D-Dimer Heparin Anti-Xa Level ABG pH 7.349 L POC ABG pCO2 POC ABG pO2 ABG pO2 ABG HCO3 33.7 H ABG O2 Saturation ABG Base Excess 6.4 H ABG Hemoglobin 11.8 L ABG Oxyhemoglobin ABG Sodium ABG Potassium ABG Glucose Oxyhemoglobin 93.9 L Sodium 146 H Potassium 5.5 H Chloride 111.1 H Carbon Dioxide BUN 34 H Creatinine 0.7 L Glucose 145 H POC Glucose Lactic Acid Calcium Phosphorus Magnesium 2.50 H Ferritin Lactate Dehydrogenase C-Reactive Protein NT-Pro-B Natriuret Pep Total Protein Albumin Triglycerides Arterial Blood Glucose Urine pH Ur Specific [place] Coronavirus (PCR) 03/20/21 03/20/21 03/20/21 05:41 09:08 11:54 WBC RBC Hgb Hct MCV MCHC RDW Plt Count Lymph % (Auto) [place] % (Auto) Lymph # (Auto) [place] # (Auto) Seg Neutrophils % Seg Neuts % (Manual) Lymphocytes % (Manual) Monocytes % (Manual) Nucleated RBC % Seg Neutrophils # Seg Neutrophils # Man Lymphocytes # (Manual) Monocytes # (Manual) PT INR APTT D-Dimer Heparin Anti-Xa Level ABG pH POC ABG pCO2 POC ABG pO2 ABG pO2 ABG HCO3 ABG O2 Saturation ABG Base Excess ABG Hemoglobin ABG Oxyhemoglobin ABG Sodium ABG Potassium ABG Glucose Oxyhemoglobin Sodium Potassium Chloride Carbon Dioxide BUN Creatinine Glucose POC Glucose 108 H 132 H 162 H Lactic Acid Calcium Phosphorus Magnesium Ferritin Lactate Dehydrogenase C-Reactive Protein NT-Pro-B Natriuret Pep Total Protein Albumin Triglycerides Arterial Blood Glucose Urine pH Ur Specific [place] Coronavirus (PCR) 03/20/21 03/21/21 03/21/21 17:28 00:31 04:44 WBC RBC Hgb Hct MCV MCHC RDW Plt Count Lymph % (Auto) [place] % (Auto) Lymph # (Auto) [place] # (Auto) Seg Neutrophils % Seg Neuts % (Manual) Lymphocytes % (Manual) Monocytes % (Manual) Nucleated RBC % Seg Neutrophils # Seg Neutrophils # Man Lymphocytes # (Manual) Monocytes # (Manual) PT INR APTT D-Dimer Heparin Anti-Xa Level ABG pH POC ABG pCO2 POC ABG pO2 ABG pO2 ABG HCO3 ABG O2 Saturation ABG Base Excess ABG Hemoglobin ABG Oxyhemoglobin ABG Sodium ABG Potassium ABG Glucose Oxyhemoglobin Sodium Potassium Chloride 108.3 H Carbon Dioxide BUN 30 H Creatinine 0.7 L Glucose POC Glucose 160 H 122 H Lactic Acid Calcium Phosphorus Magnesium Ferritin Lactate Dehydrogenase C-Reactive Protein NT-Pro-B Natriuret Pep Total Protein Albumin Triglycerides Arterial Blood Glucose Urine pH Ur Specific [place] Coronavirus (PCR) 03/21/21 03/21/21 03/21/21 09:18 10:09 13:20 WBC RBC Hgb Hct MCV MCHC RDW Plt Count Lymph % (Auto) [place] % (Auto) Lymph # (Auto) [place] # (Auto) Seg Neutrophils % Seg Neuts % (Manual) Lymphocytes % (Manual) Monocytes % (Manual) Nucleated RBC % Seg Neutrophils # Seg Neutrophils # Man Lymphocytes # (Manual) Monocytes # (Manual) PT INR APTT D-Dimer Heparin Anti-Xa Level ABG pH POC ABG pCO2 POC ABG pO2 ABG pO2 60.7 L ABG HCO3 30.6 H ABG O2 Saturation 93.6 L ABG Base Excess 5.3 H ABG Hemoglobin ABG Oxyhemoglobin ABG Sodium ABG Potassium ABG Glucose Oxyhemoglobin 91.7 L Sodium Potassium Chloride Carbon Dioxide BUN Creatinine Glucose POC Glucose 169 H 122 H Lactic Acid Calcium Phosphorus Magnesium Ferritin Lactate Dehydrogenase C-Reactive Protein NT-Pro-B Natriuret Pep Total Protein Albumin Triglycerides Arterial Blood Glucose Urine pH Ur Specific [place] Coronavirus (PCR) 03/21/21 03/21/21 03/21/21 17:25 22:41 23:52 WBC RBC Hgb Hct MCV MCHC RDW Plt Count Lymph % (Auto) [place] % (Auto) Lymph # (Auto) [place] # (Auto) Seg Neutrophils % Seg Neuts % (Manual) Lymphocytes % (Manual) Monocytes % (Manual) Nucleated RBC % Seg Neutrophils # Seg Neutrophils # Man Lymphocytes # (Manual) Monocytes # (Manual) PT INR APTT D-Dimer Heparin Anti-Xa Level ABG pH POC ABG pCO2 POC ABG pO2 ABG pO2 ABG HCO3 ABG O2 Saturation ABG Base Excess ABG Hemoglobin ABG Oxyhemoglobin ABG Sodium ABG Potassium ABG Glucose Oxyhemoglobin Sodium Potassium Chloride Carbon Dioxide BUN Creatinine Glucose POC Glucose 121 H 139 H 140 H Lactic Acid Calcium Phosphorus Magnesium Ferritin Lactate Dehydrogenase C-Reactive Protein NT-Pro-B Natriuret Pep Total Protein Albumin Triglycerides Arterial Blood Glucose Urine pH Ur Specific [place] Coronavirus (PCR) 03/22/21 03/22/21 03/22/21 05:58 07:26 07:26 WBC RBC Hgb Hct MCV MCHC 31 L RDW 16.1 H Plt Count Lymph % (Auto) [place] % (Auto) Lymph # (Auto) [place] # (Auto) Seg Neutrophils % Seg Neuts % (Manual) Lymphocytes % (Manual) Monocytes % (Manual) Nucleated RBC % Seg Neutrophils # Seg Neutrophils # Man Lymphocytes # (Manual) Monocytes # (Manual) PT INR APTT D-Dimer Heparin Anti-Xa Level ABG pH POC ABG pCO2 POC ABG pO2 ABG pO2 ABG HCO3 ABG O2 Saturation ABG Base Excess ABG Hemoglobin ABG Oxyhemoglobin ABG Sodium ABG Potassium ABG Glucose Oxyhemoglobin Sodium Potassium Chloride 108.5 H Carbon Dioxide BUN 44 H Creatinine Glucose 120 H POC Glucose 131 H Lactic Acid Calcium Phosphorus 5.80 H Magnesium 2.80 H Ferritin Lactate Dehydrogenase C-Reactive Protein NT-Pro-B Natriuret Pep Total Protein Albumin Triglycerides 305 H Arterial Blood Glucose Urine pH Ur Specific [place] Coronavirus (PCR) 03/22/21 03/22/21 03/22/21 09:38 11:15 16:01 WBC RBC Hgb Hct MCV MCHC RDW Plt Count Lymph % (Auto) [place] % (Auto) Lymph # (Auto) [place] # (Auto) Seg Neutrophils % Seg Neuts % (Manual) Lymphocytes % (Manual) Monocytes % (Manual) Nucleated RBC % Seg Neutrophils # Seg Neutrophils # Man Lymphocytes # (Manual) Monocytes # (Manual) PT INR APTT D-Dimer Heparin Anti-Xa Level ABG pH POC ABG pCO2 POC ABG pO2 ABG pO2 70.0 L ABG HCO3 30.0 H ABG O2 Saturation 94.6 L ABG Base Excess 3.6 H ABG Hemoglobin 13.5 L ABG Oxyhemoglobin ABG Sodium ABG Potassium ABG Glucose Oxyhemoglobin 92.5 L Sodium Potassium Chloride Carbon Dioxide BUN Creatinine Glucose POC Glucose 186 H 148 H Lactic Acid Calcium Phosphorus Magnesium Ferritin Lactate Dehydrogenase C-Reactive Protein NT-Pro-B Natriuret Pep Total Protein Albumin Triglycerides Arterial Blood Glucose Urine pH Ur Specific [place] Coronavirus (PCR) 03/22/21 03/22/21 03/23/21 21:13 23:48 07:04 WBC 11.7 H RBC Hgb Hct MCV 95 H MCHC RDW 16.1 H Plt Count Lymph % (Auto) [place] % (Auto) Lymph # (Auto) [place] # (Auto) Seg Neutrophils % Seg Neuts % (Manual) Lymphocytes % (Manual) Monocytes % (Manual) Nucleated RBC % Seg Neutrophils # Seg Neutrophils # Man Lymphocytes # (Manual) Monocytes # (Manual) PT INR APTT D-Dimer Heparin Anti-Xa Level ABG pH POC ABG pCO2 POC ABG pO2 ABG pO2 ABG HCO3 ABG O2 Saturation ABG Base Excess ABG Hemoglobin ABG Oxyhemoglobin ABG Sodium ABG Potassium ABG Glucose Oxyhemoglobin Sodium Potassium Chloride Carbon Dioxide BUN Creatinine Glucose POC Glucose 121 H 114 H Lactic Acid Calcium Phosphorus Magnesium Ferritin Lactate Dehydrogenase C-Reactive Protein NT-Pro-B Natriuret Pep Total Protein Albumin Triglycerides Arterial Blood Glucose Urine pH Ur Specific [place] Coronavirus (PCR) 03/23/21 03/23/21 03/23/21 07:04 08:35 11:19 WBC RBC Hgb Hct MCV MCHC RDW Plt Count Lymph % (Auto) [place] % (Auto) Lymph # (Auto) [place] # (Auto) Seg Neutrophils % Seg Neuts % (Manual) Lymphocytes % (Manual) Monocytes % (Manual) Nucleated RBC % Seg Neutrophils # Seg Neutrophils # Man Lymphocytes # (Manual) Monocytes # (Manual) PT INR APTT D-Dimer Heparin Anti-Xa Level ABG pH 7.345 L POC ABG pCO2 POC ABG pO2 ABG pO2 167.9 H ABG HCO3 32.2 H ABG O2 Saturation ABG Base Excess 4.8 H ABG Hemoglobin 13.4 L ABG Oxyhemoglobin ABG Sodium ABG Potassium ABG Glucose Oxyhemoglobin Sodium 148 H Potassium Chloride 111.3 H Carbon Dioxide 31 H BUN 31 H Creatinine Glucose 131 H POC Glucose 165 H Lactic Acid Calcium Phosphorus Magnesium 2.50 H Ferritin Lactate Dehydrogenase C-Reactive Protein NT-Pro-B Natriuret Pep Total Protein Albumin Triglycerides Arterial Blood Glucose Urine pH Ur Specific [place] Coronavirus (PCR) 03/23/21 03/23/21 03/24/21 16:48 20:52 00:07 WBC RBC Hgb Hct MCV MCHC RDW Plt Count Lymph % (Auto) [place] % (Auto) Lymph # (Auto) [place] # (Auto) Seg Neutrophils % Seg Neuts % (Manual) Lymphocytes % (Manual) Monocytes % (Manual) Nucleated RBC % Seg Neutrophils # Seg Neutrophils # Man Lymphocytes # (Manual) Monocytes # (Manual) PT INR APTT D-Dimer Heparin Anti-Xa Level ABG pH POC ABG pCO2 POC ABG pO2 ABG pO2 ABG HCO3 ABG O2 Saturation ABG Base Excess ABG Hemoglobin ABG Oxyhemoglobin ABG Sodium ABG Potassium ABG Glucose Oxyhemoglobin Sodium Potassium Chloride Carbon Dioxide BUN Creatinine Glucose POC Glucose 160 H 127 H 147 H Lactic Acid Calcium Phosphorus Magnesium Ferritin Lactate Dehydrogenase C-Reactive Protein NT-Pro-B Natriuret Pep Total Protein Albumin Triglycerides Arterial Blood Glucose Urine pH Ur Specific [place] Coronavirus (PCR) 03/24/21 03/24/21 03/24/21 04:34 04:34 05:20 WBC 13.3 H RBC Hgb Hct MCV MCHC 31 L RDW 16.1 H Plt Count Lymph % (Auto) [place] % (Auto) Lymph # (Auto) [place] # (Auto) Seg Neutrophils % Seg Neuts % (Manual) Lymphocytes % (Manual) Monocytes % (Manual) Nucleated RBC % Seg Neutrophils # Seg Neutrophils # Man Lymphocytes # (Manual) Monocytes # (Manual) PT INR APTT D-Dimer Heparin Anti-Xa Level ABG pH POC ABG pCO2 POC ABG pO2 ABG pO2 ABG HCO3 ABG O2 Saturation ABG Base Excess ABG Hemoglobin ABG Oxyhemoglobin ABG Sodium ABG Potassium ABG Glucose Oxyhemoglobin Sodium Potassium 5.2 H Chloride Carbon Dioxide BUN 28 H Creatinine 0.7 L Glucose 152 H POC Glucose 141 H Lactic Acid Calcium Phosphorus Magnesium Ferritin Lactate Dehydrogenase C-Reactive Protein NT-Pro-B Natriuret Pep Total Protein Albumin Triglycerides Arterial Blood Glucose Urine pH Ur Specific [place] Coronavirus (PCR) 03/24/21 03/24/21 03/24/21 09:40 11:38 16:45 WBC RBC Hgb Hct MCV MCHC RDW Plt Count Lymph % (Auto) [place] % (Auto) Lymph # (Auto) [place] # (Auto) Seg Neutrophils % Seg Neuts % (Manual) Lymphocytes % (Manual) Monocytes % (Manual) Nucleated RBC % Seg Neutrophils # Seg Neutrophils # Man Lymphocytes # (Manual) Monocytes # (Manual) PT INR APTT D-Dimer Heparin Anti-Xa Level ABG pH POC ABG pCO2 POC ABG pO2 ABG pO2 ABG HCO3 ABG O2 Saturation ABG Base Excess ABG Hemoglobin ABG Oxyhemoglobin ABG Sodium ABG Potassium ABG Glucose Oxyhemoglobin Sodium Potassium Chloride Carbon Dioxide BUN Creatinine Glucose POC Glucose 126 H 136 H 118 H Lactic Acid Calcium Phosphorus Magnesium Ferritin Lactate Dehydrogenase C-Reactive Protein NT-Pro-B Natriuret Pep Total Protein Albumin Triglycerides Arterial Blood Glucose Urine pH Ur Specific [place] Coronavirus (PCR) 03/24/21 03/24/21 03/25/21 21:03 23:49 04:32 WBC RBC Hgb Hct MCV MCHC RDW 16.1 H Plt Count 121 L Lymph % (Auto) [place] % (Auto) Lymph # (Auto) [place] # (Auto) Seg Neutrophils % Seg Neuts % (Manual) Lymphocytes % (Manual) Monocytes % (Manual) Nucleated RBC % Seg Neutrophils # Seg Neutrophils # Man Lymphocytes # (Manual) Monocytes # (Manual) PT INR APTT D-Dimer Heparin Anti-Xa Level ABG pH POC ABG pCO2 POC ABG pO2 ABG pO2 ABG HCO3 ABG O2 Saturation ABG Base Excess ABG Hemoglobin ABG Oxyhemoglobin ABG Sodium ABG Potassium ABG Glucose Oxyhemoglobin Sodium Potassium Chloride Carbon Dioxide BUN Creatinine Glucose POC Glucose 116 H 125 H Lactic Acid Calcium Phosphorus Magnesium Ferritin Lactate Dehydrogenase C-Reactive Protein NT-Pro-B Natriuret Pep Total Protein Albumin Triglycerides Arterial Blood Glucose Urine pH Ur Specific [place] Coronavirus (PCR) 03/25/21 03/25/21 03/25/21 04:32 05:21 09:29 WBC RBC Hgb Hct MCV MCHC RDW Plt Count Lymph % (Auto) [place] % (Auto) Lymph # (Auto) [place] # (Auto) Seg Neutrophils % Seg Neuts % (Manual) Lymphocytes % (Manual) Monocytes % (Manual) Nucleated RBC % Seg Neutrophils # Seg Neutrophils # Man Lymphocytes # (Manual) Monocytes # (Manual) PT INR APTT D-Dimer Heparin Anti-Xa Level ABG pH POC ABG pCO2 POC ABG pO2 ABG pO2 ABG HCO3 ABG O2 Saturation ABG Base Excess ABG Hemoglobin ABG Oxyhemoglobin ABG Sodium ABG Potassium ABG Glucose Oxyhemoglobin Sodium 135 L D Potassium Chloride Carbon Dioxide BUN 25 H Creatinine 0.7 L Glucose 168 H POC Glucose 149 H 115 H Lactic Acid Calcium Phosphorus Magnesium Ferritin Lactate Dehydrogenase C-Reactive Protein NT-Pro-B Natriuret Pep Total Protein Albumin Triglycerides Arterial Blood Glucose Urine pH Ur Specific [place] Coronavirus (PCR) 03/25/21 03/25/21 03/25/21 12:26 12:35 23:53 WBC RBC Hgb Hct MCV MCHC RDW Plt Count Lymph % (Auto) [place] % (Auto) Lymph # (Auto) [place] # (Auto) Seg Neutrophils % Seg Neuts % (Manual) Lymphocytes % (Manual) Monocytes % (Manual) Nucleated RBC % Seg Neutrophils # Seg Neutrophils # Man Lymphocytes # (Manual) Monocytes # (Manual) PT INR APTT D-Dimer Heparin Anti-Xa Level ABG pH POC ABG pCO2 POC ABG pO2 ABG pO2 100.5 H ABG HCO3 33.6 H ABG O2 Saturation ABG Base Excess 6.4 H ABG Hemoglobin 12.0 L ABG Oxyhemoglobin ABG Sodium ABG Potassium ABG Glucose Oxyhemoglobin Sodium Potassium Chloride Carbon Dioxide BUN Creatinine Glucose POC Glucose 108 H 137 H Lactic Acid Calcium Phosphorus Magnesium Ferritin Lactate Dehydrogenase C-Reactive Protein NT-Pro-B Natriuret Pep Total Protein Albumin Triglycerides Arterial Blood Glucose Urine pH Ur Specific [place] Coronavirus (PCR) 03/26/21 03/26/21 03/26/21 05:14 07:09 07:09 WBC RBC Hgb Hct MCV MCHC RDW 16.5 H Plt Count 139 L Lymph % (Auto) [place] % (Auto) Lymph # (Auto) [place] # (Auto) Seg Neutrophils % Seg Neuts % (Manual) Lymphocytes % (Manual) Monocytes % (Manual) Nucleated RBC % Seg Neutrophils # Seg Neutrophils # Man Lymphocytes # (Manual) Monocytes # (Manual) PT INR APTT D-Dimer Heparin Anti-Xa Level ABG pH POC ABG pCO2 POC ABG pO2 ABG pO2 ABG HCO3 ABG O2 Saturation ABG Base Excess ABG Hemoglobin ABG Oxyhemoglobin ABG Sodium ABG Potassium ABG Glucose Oxyhemoglobin Sodium Potassium Chloride Carbon Dioxide BUN 22 H Creatinine 0.7 L Glucose 108 H POC Glucose 116 H Lactic Acid Calcium Phosphorus Magnesium Ferritin Lactate Dehydrogenase C-Reactive Protein NT-Pro-B Natriuret Pep Total Protein Albumin Triglycerides Arterial Blood Glucose Urine pH Ur Specific [place] Coronavirus (PCR) 03/26/21 03/26/21 03/26/21 09:51 11:15 16:59 WBC RBC Hgb Hct MCV MCHC RDW Plt Count Lymph % (Auto) [place] % (Auto) Lymph # (Auto) [place] # (Auto) Seg Neutrophils % Seg Neuts % (Manual) Lymphocytes % (Manual) Monocytes % (Manual) Nucleated RBC % Seg Neutrophils # Seg Neutrophils # Man Lymphocytes # (Manual) Monocytes # (Manual) PT INR APTT D-Dimer Heparin Anti-Xa Level ABG pH POC ABG pCO2 POC ABG pO2 ABG pO2 ABG HCO3 ABG O2 Saturation ABG Base Excess ABG Hemoglobin ABG Oxyhemoglobin ABG Sodium ABG Potassium ABG Glucose Oxyhemoglobin Sodium Potassium Chloride Carbon Dioxide BUN Creatinine Glucose POC Glucose 107 H 119 H 174 H Lactic Acid Calcium Phosphorus Magnesium Ferritin Lactate Dehydrogenase C-Reactive Protein NT-Pro-B Natriuret Pep Total Protein Albumin Triglycerides Arterial Blood Glucose Urine pH Ur Specific [place] Coronavirus (PCR) 03/26/21 03/27/21 03/27/21 22:18 07:08 10:28 WBC RBC Hgb Hct MCV 95 H MCHC RDW 16.2 H Plt Count 134 L Lymph % (Auto) [place] % (Auto) Lymph # (Auto) [place] # (Auto) Seg Neutrophils % Seg Neuts % (Manual) Lymphocytes % (Manual) Monocytes % (Manual) Nucleated RBC % Seg Neutrophils # Seg Neutrophils # Man Lymphocytes # (Manual) Monocytes # (Manual) PT INR APTT D-Dimer Heparin Anti-Xa Level ABG pH POC ABG pCO2 POC ABG pO2 ABG pO2 ABG HCO3 ABG O2 Saturation ABG Base Excess ABG Hemoglobin ABG Oxyhemoglobin ABG Sodium ABG Potassium ABG Glucose Oxyhemoglobin Sodium Potassium Chloride Carbon Dioxide BUN Creatinine Glucose POC Glucose 107 H 52 L Lactic Acid Calcium Phosphorus Magnesium Ferritin Lactate Dehydrogenase C-Reactive Protein NT-Pro-B Natriuret Pep Total Protein Albumin Triglycerides Arterial Blood Glucose Urine pH Ur Specific [place] Coronavirus (PCR) 03/27/21 03/27/21 03/27/21 10:28 11:45 17:39 WBC RBC Hgb Hct MCV MCHC RDW Plt Count Lymph % (Auto) [place] % (Auto) Lymph # (Auto) [place] # (Auto) Seg Neutrophils % Seg Neuts % (Manual) Lymphocytes % (Manual) Monocytes % (Manual) Nucleated RBC % Seg Neutrophils # Seg Neutrophils # Man Lymphocytes # (Manual) Monocytes # (Manual) PT INR APTT D-Dimer Heparin Anti-Xa Level ABG pH POC ABG pCO2 POC ABG pO2 ABG pO2 ABG HCO3 ABG O2 Saturation ABG Base Excess ABG Hemoglobin ABG Oxyhemoglobin ABG Sodium ABG Potassium ABG Glucose Oxyhemoglobin Sodium 136 L Potassium Chloride Carbon Dioxide BUN Creatinine 0.7 L Glucose 150 H POC Glucose 121 H 165 H Lactic Acid Calcium Phosphorus Magnesium Ferritin Lactate Dehydrogenase C-Reactive Protein NT-Pro-B Natriuret Pep Total Protein Albumin Triglycerides Arterial Blood Glucose Urine pH Ur Specific [place] Coronavirus (PCR) 03/28/21 03/28/21 03/28/21 07:14 11:42 18:22 WBC RBC Hgb Hct MCV MCHC RDW 16.4 H Plt Count Lymph % (Auto) [place] % (Auto) Lymph # (Auto) [place] # (Auto) Seg Neutrophils % Seg Neuts % (Manual) Lymphocytes % (Manual) Monocytes % (Manual) Nucleated RBC % Seg Neutrophils # Seg Neutrophils # Man Lymphocytes # (Manual) Monocytes # (Manual) PT INR APTT D-Dimer Heparin Anti-Xa Level ABG pH POC ABG pCO2 POC ABG pO2 ABG pO2 ABG HCO3 ABG O2 Saturation ABG Base Excess ABG Hemoglobin ABG Oxyhemoglobin ABG Sodium ABG Potassium ABG Glucose Oxyhemoglobin Sodium Potassium Chloride Carbon Dioxide BUN Creatinine Glucose POC Glucose 145 H 169 H Lactic Acid Calcium Phosphorus Magnesium Ferritin Lactate Dehydrogenase C-Reactive Protein NT-Pro-B Natriuret Pep Total Protein Albumin Triglycerides Arterial Blood Glucose Urine pH Ur Specific [place] Coronavirus (PCR) 03/28/21 03/29/21 03/29/21 23:39 04:50 04:50 WBC RBC Hgb 11.0 L Hct 34.9 L MCV MCHC RDW 15.9 H Plt Count Lymph % (Auto) [place] % (Auto) Lymph # (Auto) [place] # (Auto) Seg Neutrophils % Seg Neuts % (Manual) Lymphocytes % (Manual) Monocytes % (Manual) Nucleated RBC % Seg Neutrophils # Seg Neutrophils # Man Lymphocytes # (Manual) Monocytes # (Manual) PT INR APTT D-Dimer Heparin Anti-Xa Level ABG pH POC ABG pCO2 POC ABG pO2 ABG pO2 ABG HCO3 ABG O2 Saturation ABG Base Excess ABG Hemoglobin ABG Oxyhemoglobin ABG Sodium ABG Potassium ABG Glucose Oxyhemoglobin Sodium Potassium Chloride Carbon Dioxide 34 H BUN Creatinine 0.6 L Glucose 152 H POC Glucose 139 H Lactic Acid Calcium Phosphorus Magnesium Ferritin Lactate Dehydrogenase C-Reactive Protein NT-Pro-B Natriuret Pep Total Protein Albumin Triglycerides Arterial Blood Glucose Urine pH Ur Specific [place] Coronavirus (PCR) 03/29/21 03/29/21 03/29/21 05:25 11:34 18:02 WBC RBC Hgb Hct MCV MCHC RDW Plt Count Lymph % (Auto) [place] % (Auto) Lymph # (Auto) [place] # (Auto) Seg Neutrophils % Seg Neuts % (Manual) Lymphocytes % (Manual) Monocytes % (Manual) Nucleated RBC % Seg Neutrophils # Seg Neutrophils # Man Lymphocytes # (Manual) Monocytes # (Manual) PT INR APTT D-Dimer Heparin Anti-Xa Level ABG pH POC ABG pCO2 POC ABG pO2 ABG pO2 ABG HCO3 ABG O2 Saturation ABG Base Excess ABG Hemoglobin ABG Oxyhemoglobin ABG Sodium ABG Potassium ABG Glucose Oxyhemoglobin Sodium Potassium Chloride Carbon Dioxide BUN Creatinine Glucose POC Glucose 127 H 169 H 173 H Lactic Acid Calcium Phosphorus Magnesium Ferritin Lactate Dehydrogenase C-Reactive Protein NT-Pro-B Natriuret Pep Total Protein Albumin Triglycerides Arterial Blood Glucose Urine pH Ur Specific [place] Coronavirus (PCR) 03/29/21 03/30/21 03/30/21 21:42 00:01 05:36 WBC RBC Hgb Hct MCV MCHC RDW 16.7 H Plt Count Lymph % (Auto) [place] % (Auto) Lymph # (Auto) [place] # (Auto) Seg Neutrophils % Seg Neuts % (Manual) Lymphocytes % (Manual) Monocytes % (Manual) Nucleated RBC % Seg Neutrophils # Seg Neutrophils # Man Lymphocytes # (Manual) Monocytes # (Manual) PT INR APTT D-Dimer Heparin Anti-Xa Level ABG pH POC ABG pCO2 POC ABG pO2 ABG pO2 ABG HCO3 ABG O2 Saturation ABG Base Excess ABG Hemoglobin ABG Oxyhemoglobin ABG Sodium ABG Potassium ABG Glucose Oxyhemoglobin Sodium Potassium Chloride Carbon Dioxide BUN Creatinine Glucose POC Glucose 184 H 161 H Lactic Acid Calcium Phosphorus Magnesium Ferritin Lactate Dehydrogenase C-Reactive Protein NT-Pro-B Natriuret Pep Total Protein Albumin Triglycerides Arterial Blood Glucose Urine pH Ur Specific [place] Coronavirus (PCR) 03/30/21 03/30/2122 05:36 06:03 11:32 WBC RBC Hgb Hct MCV MCHC RDW Plt Count Lymph % (Auto) [place] % (Auto) Lymph # (Auto) [place] # (Auto) Seg Neutrophils % Seg Neuts % (Manual) Lymphocytes % (Manual) Monocytes % (Manual) Nucleated RBC % Seg Neutrophils # Seg Neutrophils # Man Lymphocytes # (Manual) Monocytes # (Manual) PT INR APTT D-Dimer Heparin Anti-Xa Level ABG pH POC ABG pCO2 POC ABG pO2 ABG pO2 ABG HCO3 ABG O2 Saturation ABG Base Excess ABG Hemoglobin ABG Oxyhemoglobin ABG Sodium ABG Potassium ABG Glucose Oxyhemoglobin Sodium Potassium Chloride Carbon Dioxide BUN Creatinine 0.5 L Glucose 127 H POC Glucose 130 H 183 H Lactic Acid Calcium Phosphorus Magnesium Ferritin Lactate Dehydrogenase C-Reactive Protein NT-Pro-B Natriuret Pep Total Protein Albumin Triglycerides Arterial Blood Glucose Urine pH Ur Specific [place] Coronavirus (PCR) 03/30/21 03/30/21 03/30/21 15:00 16:23 21:07 WBC RBC Hgb Hct MCV MCHC RDW Plt Count Lymph % (Auto) [place] % (Auto) Lymph # (Auto) [place] # (Auto) Seg Neutrophils % Seg Neuts % (Manual) Lymphocytes % (Manual) Monocytes % (Manual) Nucleated RBC % Seg Neutrophils # Seg Neutrophils # Man Lymphocytes # (Manual) Monocytes # (Manual) PT INR APTT D-Dimer Heparin Anti-Xa Level ABG pH POC ABG pCO2 POC ABG pO2 ABG pO2 67.2 L ABG HCO3 34.9 H ABG O2 Saturation ABG Base Excess 9.1 H ABG Hemoglobin 11.6 L ABG Oxyhemoglobin ABG Sodium ABG Potassium ABG Glucose Oxyhemoglobin 93.0 L Sodium Potassium Chloride Carbon Dioxide BUN Creatinine Glucose POC Glucose 162 H 146 H Lactic Acid Calcium Phosphorus Magnesium Ferritin Lactate Dehydrogenase C-Reactive Protein NT-Pro-B Natriuret Pep Total Protein Albumin Triglycerides Arterial Blood Glucose Urine pH Ur Specific [place] Coronavirus (PCR) 03/30/21 03/31/21 03/31/21 23:23 05:44 11:19 WBC RBC Hgb Hct MCV MCHC RDW Plt Count Lymph % (Auto) [place] % (Auto) Lymph # (Auto) [place] # (Auto) Seg Neutrophils % Seg Neuts % (Manual) Lymphocytes % (Manual) Monocytes % (Manual) Nucleated RBC % Seg Neutrophils # Seg Neutrophils # Man Lymphocytes # (Manual) Monocytes # (Manual) PT INR APTT D-Dimer Heparin Anti-Xa Level ABG pH POC ABG pCO2 POC ABG pO2 ABG pO2 ABG HCO3 ABG O2 Saturation ABG Base Excess ABG Hemoglobin ABG Oxyhemoglobin ABG Sodium ABG Potassium ABG Glucose Oxyhemoglobin Sodium Potassium Chloride Carbon Dioxide BUN Creatinine Glucose POC Glucose 138 H 180 H 178 H Lactic Acid Calcium Phosphorus Magnesium Ferritin Lactate Dehydrogenase C-Reactive Protein NT-Pro-B Natriuret Pep Total Protein Albumin Triglycerides Arterial Blood Glucose Urine pH Ur Specific [place] Coronavirus (PCR) 03/31/21 03/31/21 03/31/21 12:50 13:30 16:06 WBC RBC Hgb 11.3 L Hct 35.1 L MCV MCHC RDW 16.5 H Plt Count Lymph % (Auto) 7.6 L [place] % (Auto) 9.5 H Lymph # (Auto) 0.6 L [place] # (Auto) Seg Neutrophils % 78.3 H Seg Neuts % (Manual) Lymphocytes % (Manual) Monocytes % (Manual) Nucleated RBC % Seg Neutrophils # Seg Neutrophils # Man Lymphocytes # (Manual) Monocytes # (Manual) PT INR APTT D-Dimer Heparin Anti-Xa Level ABG pH POC ABG pCO2 POC ABG pO2 ABG pO2 99.4 H ABG HCO3 34.9 H ABG O2 Saturation ABG Base Excess 8.4 H ABG Hemoglobin 11.8 L ABG Oxyhemoglobin ABG Sodium ABG Potassium ABG Glucose Oxyhemoglobin Sodium Potassium Chloride Carbon Dioxide BUN Creatinine Glucose POC Glucose 197 H Lactic Acid Calcium Phosphorus Magnesium Ferritin Lactate Dehydrogenase C-Reactive Protein NT-Pro-B Natriuret Pep Total Protein Albumin Triglycerides Arterial Blood Glucose Urine pH Ur Specific [place] Coronavirus (PCR) 03/31/21 04/01/21 04/01/21 20:51 05:37 07:16 WBC RBC 3.39 L Hgb 10.5 L Hct 31.6 L MCV MCHC RDW 16.1 H Plt Count Lymph % (Auto) [place] % (Auto) Lymph # (Auto) [place] # (Auto) Seg Neutrophils % Seg Neuts % (Manual) Lymphocytes % (Manual) Monocytes % (Manual) Nucleated RBC % Seg Neutrophils # Seg Neutrophils # Man Lymphocytes # (Manual) Monocytes # (Manual) PT INR APTT D-Dimer Heparin Anti-Xa Level ABG pH POC ABG pCO2 POC ABG pO2 ABG pO2 ABG HCO3 ABG O2 Saturation ABG Base Excess ABG Hemoglobin ABG Oxyhemoglobin ABG Sodium ABG Potassium ABG Glucose Oxyhemoglobin Sodium Potassium Chloride Carbon Dioxide BUN Creatinine Glucose POC Glucose 140 H 128 H Lactic Acid Calcium Phosphorus Magnesium Ferritin Lactate Dehydrogenase C-Reactive Protein NT-Pro-B Natriuret Pep Total Protein Albumin Triglycerides Arterial Blood Glucose Urine pH Ur Specific [place] Coronavirus (PCR) 04/01/21 04/01/21 04/01/21 07:16 11:52 16:56 WBC RBC Hgb Hct MCV MCHC RDW Plt Count Lymph % (Auto) [place] % (Auto) Lymph # (Auto) [place] # (Auto) Seg Neutrophils % Seg Neuts % (Manual) Lymphocytes % (Manual) Monocytes % (Manual) Nucleated RBC % Seg Neutrophils # Seg Neutrophils # Man Lymphocytes # (Manual) Monocytes # (Manual) PT INR APTT D-Dimer Heparin Anti-Xa Level ABG pH POC ABG pCO2 POC ABG pO2 ABG pO2 ABG HCO3 ABG O2 Saturation ABG Base Excess ABG Hemoglobin ABG Oxyhemoglobin ABG Sodium ABG Potassium ABG Glucose Oxyhemoglobin Sodium Potassium Chloride Carbon Dioxide BUN Creatinine 0.6 L Glucose 131 H POC Glucose 182 H 179 H Lactic Acid Calcium 8.3 L Phosphorus Magnesium Ferritin Lactate Dehydrogenase C-Reactive Protein NT-Pro-B Natriuret Pep Total Protein Albumin Triglycerides Arterial Blood Glucose Urine pH Ur Specific [place] Coronavirus (PCR) 04/01/21 04/01/21 04/02/21 21:30 23:40 04:26 WBC RBC 3.62 L Hgb 10.8 L Hct 33.9 L MCV MCHC RDW 16.0 H Plt Count Lymph % (Auto) [place] % (Auto) Lymph # (Auto) [place] # (Auto) Seg Neutrophils % Seg Neuts % (Manual) Lymphocytes % (Manual) Monocytes % (Manual) Nucleated RBC % Seg Neutrophils # Seg Neutrophils # Man Lymphocytes # (Manual) Monocytes # (Manual) PT INR APTT D-Dimer Heparin Anti-Xa Level ABG pH POC ABG pCO2 POC ABG pO2 ABG pO2 ABG HCO3 ABG O2 Saturation ABG Base Excess ABG Hemoglobin ABG Oxyhemoglobin ABG Sodium ABG Potassium ABG Glucose Oxyhemoglobin Sodium Potassium Chloride Carbon Dioxide BUN Creatinine Glucose POC Glucose 131 H 129 H Lactic Acid Calcium Phosphorus Magnesium Ferritin Lactate Dehydrogenase C-Reactive Protein NT-Pro-B Natriuret Pep Total Protein Albumin Triglycerides Arterial Blood Glucose Urine pH Ur Specific [place] Coronavirus (PCR) 04/02/21 04/02/21 04/02/21 04:26 05:54 11:35 WBC RBC Hgb Hct MCV MCHC RDW Plt Count Lymph % (Auto) [place] % (Auto) Lymph # (Auto) [place] # (Auto) Seg Neutrophils % Seg Neuts % (Manual) Lymphocytes % (Manual) Monocytes % (Manual) Nucleated RBC % Seg Neutrophils # Seg Neutrophils # Man Lymphocytes # (Manual) Monocytes # (Manual) PT INR APTT D-Dimer Heparin Anti-Xa Level ABG pH POC ABG pCO2 POC ABG pO2 ABG pO2 ABG HCO3 ABG O2 Saturation ABG Base Excess ABG Hemoglobin ABG Oxyhemoglobin ABG Sodium ABG Potassium ABG Glucose Oxyhemoglobin Sodium 136 L Potassium Chloride Carbon Dioxide BUN Creatinine 0.6 L Glucose 152 H POC Glucose 151 H 178 H Lactic Acid Calcium Phosphorus Magnesium Ferritin Lactate Dehydrogenase C-Reactive Protein NT-Pro-B Natriuret Pep Total Protein Albumin Triglycerides Arterial Blood Glucose Urine pH Ur Specific [place] Coronavirus (PCR) 04/02/21 04/02/21 04/02/21 16:11 21:09 23:38 WBC RBC Hgb Hct MCV MCHC RDW Plt Count Lymph % (Auto) [place] % (Auto) Lymph # (Auto) [place] # (Auto) Seg Neutrophils % Seg Neuts % (Manual) Lymphocytes % (Manual) Monocytes % (Manual) Nucleated RBC % Seg Neutrophils # Seg Neutrophils # Man Lymphocytes # (Manual) Monocytes # (Manual) PT INR APTT D-Dimer Heparin Anti-Xa Level ABG pH POC ABG pCO2 POC ABG pO2 ABG pO2 ABG HCO3 ABG O2 Saturation ABG Base Excess ABG Hemoglobin ABG Oxyhemoglobin ABG Sodium ABG Potassium ABG Glucose Oxyhemoglobin Sodium Potassium Chloride Carbon Dioxide BUN Creatinine Glucose POC Glucose 186 H 145 H 152 H Lactic Acid Calcium Phosphorus Magnesium Ferritin Lactate Dehydrogenase C-Reactive Protein NT-Pro-B Natriuret Pep Total Protein Albumin Triglycerides Arterial Blood Glucose Urine pH Ur Specific [place] Coronavirus (PCR) 04/03/21 04/03/21 04/03/21 04:14 04:14 05:27 WBC RBC 3.62 L Hgb 11.0 L Hct 34.0 L MCV MCHC RDW 16.3 H Plt Count Lymph % (Auto) [place] % (Auto) Lymph # (Auto) [place] # (Auto) Seg Neutrophils % Seg Neuts % (Manual) Lymphocytes % (Manual) Monocytes % (Manual) Nucleated RBC % Seg Neutrophils # Seg Neutrophils # Man Lymphocytes # (Manual) Monocytes # (Manual) PT INR APTT D-Dimer Heparin Anti-Xa Level ABG pH POC ABG pCO2 POC ABG pO2 ABG pO2 ABG HCO3 ABG O2 Saturation ABG Base Excess ABG Hemoglobin ABG Oxyhemoglobin ABG Sodium ABG Potassium ABG Glucose Oxyhemoglobin Sodium Potassium Chloride Carbon Dioxide 31 H BUN Creatinine 0.6 L Glucose 155 H POC Glucose 165 H Lactic Acid Calcium Phosphorus Magnesium Ferritin Lactate Dehydrogenase C-Reactive Protein NT-Pro-B Natriuret Pep Total Protein Albumin Triglycerides Arterial Blood Glucose Urine pH Ur Specific [place] Coronavirus (PCR) 04/03/21 04/03/21 04/03/21 11:02 16:19 19:45 WBC RBC Hgb Hct MCV MCHC RDW Plt Count Lymph % (Auto) [place] % (Auto) Lymph # (Auto) [place] # (Auto) Seg Neutrophils % Seg Neuts % (Manual) Lymphocytes % (Manual) Monocytes % (Manual) Nucleated RBC % Seg Neutrophils # Seg Neutrophils # Man Lymphocytes # (Manual) Monocytes # (Manual) PT INR APTT D-Dimer Heparin Anti-Xa Level ABG pH POC ABG pCO2 POC ABG pO2 ABG pO2 ABG HCO3 ABG O2 Saturation ABG Base Excess ABG Hemoglobin ABG Oxyhemoglobin ABG Sodium ABG Potassium ABG Glucose Oxyhemoglobin Sodium Potassium Chloride Carbon Dioxide BUN Creatinine Glucose POC Glucose 161 H 180 H 136 H Lactic Acid Calcium Phosphorus Magnesium Ferritin Lactate Dehydrogenase C-Reactive Protein NT-Pro-B Natriuret Pep Total Protein Albumin Triglycerides Arterial Blood Glucose Urine pH Ur Specific [place] Coronavirus (PCR) 04/04/21 04/04/21 04/04/21 00:21 04:33 04:33 WBC 13.1 H RBC 3.49 L Hgb 10.3 L Hct 32.7 L MCV MCHC RDW 16.1 H Plt Count Lymph % (Auto) [place] % (Auto) Lymph # (Auto) [place] # (Auto) Seg Neutrophils % Seg Neuts % (Manual) Lymphocytes % (Manual) Monocytes % (Manual) Nucleated RBC % Seg Neutrophils # Seg Neutrophils # Man Lymphocytes # (Manual) Monocytes # (Manual) PT INR APTT D-Dimer Heparin Anti-Xa Level ABG pH POC ABG pCO2 POC ABG pO2 ABG pO2 ABG HCO3 ABG O2 Saturation ABG Base Excess ABG Hemoglobin ABG Oxyhemoglobin ABG Sodium ABG Potassium ABG Glucose Oxyhemoglobin Sodium Potassium Chloride Carbon Dioxide 31 H BUN Creatinine 0.4 L Glucose 153 H POC Glucose 140 H Lactic Acid Calcium Phosphorus Magnesium Ferritin Lactate Dehydrogenase C-Reactive Protein NT-Pro-B Natriuret Pep Total Protein Albumin Triglycerides Arterial Blood Glucose Urine pH Ur Specific [place] Coronavirus (PCR) 04/04/21 04/04/21 04/04/21 05:16 11:39 17:22 WBC RBC Hgb Hct MCV MCHC RDW Plt Count Lymph % (Auto) [place] % (Auto) Lymph # (Auto) [place] # (Auto) Seg Neutrophils % Seg Neuts % (Manual) Lymphocytes % (Manual) Monocytes % (Manual) Nucleated RBC % Seg Neutrophils # Seg Neutrophils # Man Lymphocytes # (Manual) Monocytes # (Manual) PT INR APTT D-Dimer Heparin Anti-Xa Level ABG pH POC ABG pCO2 POC ABG pO2 ABG pO2 ABG HCO3 ABG O2 Saturation ABG Base Excess ABG Hemoglobin ABG Oxyhemoglobin ABG Sodium ABG Potassium ABG Glucose Oxyhemoglobin Sodium Potassium Chloride Carbon Dioxide BUN Creatinine Glucose POC Glucose 152 H 154 H 198 H Lactic Acid Calcium Phosphorus Magnesium Ferritin Lactate Dehydrogenase C-Reactive Protein NT-Pro-B Natriuret Pep Total Protein Albumin Triglycerides Arterial Blood Glucose Urine pH Ur Specific [place] Coronavirus (PCR) 04/04/21 04/04/21 04/05/21 20:14 23:16 04:15 WBC RBC 3.21 L Hgb 10.0 L Hct 30.3 L MCV MCHC RDW 16.4 H Plt Count Lymph % (Auto) [place] % (Auto) Lymph # (Auto) [place] # (Auto) Seg Neutrophils % Seg Neuts % (Manual) Lymphocytes % (Manual) Monocytes % (Manual) Nucleated RBC % Seg Neutrophils # Seg Neutrophils # Man Lymphocytes # (Manual) Monocytes # (Manual) PT INR APTT D-Dimer Heparin Anti-Xa Level ABG pH POC ABG pCO2 POC ABG pO2 ABG pO2 ABG HCO3 ABG O2 Saturation ABG Base Excess ABG Hemoglobin ABG Oxyhemoglobin ABG Sodium ABG Potassium ABG Glucose Oxyhemoglobin Sodium Potassium Chloride Carbon Dioxide BUN Creatinine Glucose POC Glucose 161 H 139 H Lactic Acid Calcium Phosphorus Magnesium Ferritin Lactate Dehydrogenase C-Reactive Protein NT-Pro-B Natriuret Pep Total Protein Albumin Triglycerides Arterial Blood Glucose Urine pH Ur Specific [place] Coronavirus (PCR) 04/05/21 04/05/21 04/05/21 04:15 05:34 12:09 WBC RBC Hgb Hct MCV MCHC RDW Plt Count Lymph % (Auto) [place] % (Auto) Lymph # (Auto) [place] # (Auto) Seg Neutrophils % Seg Neuts % (Manual) Lymphocytes % (Manual) Monocytes % (Manual) Nucleated RBC % Seg Neutrophils # Seg Neutrophils # Man Lymphocytes # (Manual) Monocytes # (Manual) PT INR APTT D-Dimer Heparin Anti-Xa Level ABG pH POC ABG pCO2 POC ABG pO2 ABG pO2 ABG HCO3 ABG O2 Saturation ABG Base Excess ABG Hemoglobin ABG Oxyhemoglobin ABG Sodium ABG Potassium ABG Glucose Oxyhemoglobin Sodium Potassium Chloride 97.6 L Carbon Dioxide 32 H BUN Creatinine 0.5 L Glucose 147 H POC Glucose 145 H 173 H Lactic Acid Calcium Phosphorus Magnesium Ferritin Lactate Dehydrogenase C-Reactive Protein NT-Pro-B Natriuret Pep Total Protein Albumin Triglycerides Arterial Blood Glucose Urine pH Ur Specific [place] Coronavirus (PCR) 04/05/21 04/05/21 04/05/21 17:35 21:07 23:15 WBC RBC Hgb Hct MCV MCHC RDW Plt Count Lymph % (Auto) [place] % (Auto) Lymph # (Auto) [place] # (Auto) Seg Neutrophils % Seg Neuts % (Manual) Lymphocytes % (Manual) Monocytes % (Manual) Nucleated RBC % Seg Neutrophils # Seg Neutrophils # Man Lymphocytes # (Manual) Monocytes # (Manual) PT INR APTT D-Dimer Heparin Anti-Xa Level ABG pH POC ABG pCO2 POC ABG pO2 ABG pO2 ABG HCO3 ABG O2 Saturation ABG Base Excess ABG Hemoglobin ABG Oxyhemoglobin ABG Sodium ABG Potassium ABG Glucose Oxyhemoglobin Sodium Potassium Chloride Carbon Dioxide BUN Creatinine Glucose POC Glucose 143 H 157 H 171 H Lactic Acid Calcium Phosphorus Magnesium Ferritin Lactate Dehydrogenase C-Reactive Protein NT-Pro-B Natriuret Pep Total Protein Albumin Triglycerides Arterial Blood Glucose Urine pH Ur Specific [place] Coronavirus (PCR) 04/06/21 04/06/21 04/06/21 04:49 05:14 11:42 WBC RBC Hgb Hct MCV MCHC RDW Plt Count Lymph % (Auto) [place] % (Auto) Lymph # (Auto) [place] # (Auto) Seg Neutrophils % Seg Neuts % (Manual) Lymphocytes % (Manual) Monocytes % (Manual) Nucleated RBC % Seg Neutrophils # Seg Neutrophils # Man Lymphocytes # (Manual) Monocytes # (Manual) PT INR APTT D-Dimer Heparin Anti-Xa Level ABG pH POC ABG pCO2 57.4 H POC ABG pO2 55.1 L ABG pO2 ABG HCO3 ABG O2 Saturation ABG Base Excess ABG Hemoglobin 11.5 L ABG Oxyhemoglobin 87.5 L ABG Sodium ABG Potassium ABG Glucose Oxyhemoglobin Sodium Potassium Chloride Carbon Dioxide BUN Creatinine Glucose POC Glucose 145 H 171 H Lactic Acid Calcium Phosphorus Magnesium Ferritin Lactate Dehydrogenase C-Reactive Protein NT-Pro-B Natriuret Pep Total Protein Albumin Triglycerides Arterial Blood Glucose Urine pH Ur Specific [place] Coronavirus (PCR) 04/06/21 04/06/21 04/06/21 11:50 15:36 15:36 WBC RBC Hgb 10.4 L Hct 32.5 L MCV MCHC RDW Plt Count 444 H Lymph % (Auto) [place] % (Auto) Lymph # (Auto) [place] # (Auto) Seg Neutrophils % Seg Neuts % (Manual) Lymphocytes % (Manual) Monocytes % (Manual) Nucleated RBC % Seg Neutrophils # Seg Neutrophils # Man Lymphocytes # (Manual) Monocytes # (Manual) PT INR APTT 37.1 H D-Dimer Heparin Anti-Xa Level ABG pH 7.341 L POC ABG pCO2 POC ABG pO2 ABG pO2 108.9 H ABG HCO3 38.9 H ABG O2 Saturation ABG Base Excess 10.6 H ABG Hemoglobin 11.5 L ABG Oxyhemoglobin ABG Sodium ABG Potassium ABG Glucose Oxyhemoglobin Sodium Potassium Chloride Carbon Dioxide BUN Creatinine Glucose POC Glucose Lactic Acid Calcium Phosphorus Magnesium Ferritin Lactate Dehydrogenase C-Reactive Protein NT-Pro-B Natriuret Pep Total Protein Albumin Triglycerides Arterial Blood Glucose Urine pH Ur Specific [place] Coronavirus (PCR) 04/06/21 04/07/21 04/07/21 17:57 00:30 00:32 WBC RBC Hgb Hct MCV MCHC RDW Plt Count Lymph % (Auto) [place] % (Auto) Lymph # (Auto) [place] # (Auto) Seg Neutrophils % Seg Neuts % (Manual) Lymphocytes % (Manual) Monocytes % (Manual) Nucleated RBC % Seg Neutrophils # Seg Neutrophils # Man Lymphocytes # (Manual) Monocytes # (Manual) PT INR APTT D-Dimer Heparin Anti-Xa Level < 0.10 L ABG pH POC ABG pCO2 POC ABG pO2 ABG pO2 ABG HCO3 ABG O2 Saturation ABG Base Excess ABG Hemoglobin ABG Oxyhemoglobin ABG Sodium ABG Potassium ABG Glucose Oxyhemoglobin Sodium Potassium Chloride Carbon Dioxide BUN Creatinine Glucose POC Glucose 151 H 149 H Lactic Acid Calcium Phosphorus Magnesium Ferritin Lactate Dehydrogenase C-Reactive Protein NT-Pro-B Natriuret Pep Total Protein Albumin Triglycerides Arterial Blood Glucose Urine pH Ur Specific [place] Coronavirus (PCR) 04/07/21 04/07/21 04/07/21 05:34 06:08 06:08 WBC RBC 3.20 L Hgb 9.6 L Hct 29.8 L MCV MCHC RDW 16.0 H Plt Count 455 H Lymph % (Auto) [place] % (Auto) Lymph # (Auto) [place] # (Auto) Seg Neutrophils % Seg Neuts % (Manual) Lymphocytes % (Manual) Monocytes % (Manual) Nucleated RBC % Seg Neutrophils # Seg Neutrophils # Man Lymphocytes # (Manual) Monocytes # (Manual) PT INR APTT D-Dimer Heparin Anti-Xa Level ABG pH POC ABG pCO2 POC ABG pO2 ABG pO2 ABG HCO3 ABG O2 Saturation ABG Base Excess ABG Hemoglobin ABG Oxyhemoglobin ABG Sodium ABG Potassium ABG Glucose Oxyhemoglobin Sodium Potassium Chloride Carbon Dioxide 35 H BUN Creatinine 0.5 L Glucose 216 H POC Glucose 182 H Lactic Acid Calcium Phosphorus Magnesium Ferritin Lactate Dehydrogenase C-Reactive Protein NT-Pro-B Natriuret Pep Total Protein Albumin Triglycerides Arterial Blood Glucose Urine pH Ur Specific [place] Coronavirus (PCR) 04/07/21 04/07/21 04/07/21 07:55 11:57 17:12 WBC RBC Hgb Hct MCV MCHC RDW Plt Count Lymph % (Auto) [place] % (Auto) Lymph # (Auto) [place] # (Auto) Seg Neutrophils % Seg Neuts % (Manual) Lymphocytes % (Manual) Monocytes % (Manual) Nucleated RBC % Seg Neutrophils # Seg Neutrophils # Man Lymphocytes # (Manual) Monocytes # (Manual) PT INR APTT D-Dimer Heparin Anti-Xa Level < 0.10 L ABG pH POC ABG pCO2 POC ABG pO2 ABG pO2 ABG HCO3 ABG O2 Saturation ABG Base Excess ABG Hemoglobin ABG Oxyhemoglobin ABG Sodium ABG Potassium ABG Glucose Oxyhemoglobin Sodium Potassium Chloride Carbon Dioxide BUN Creatinine Glucose POC Glucose 182 H 165 H Lactic Acid Calcium Phosphorus Magnesium Ferritin Lactate Dehydrogenase C-Reactive Protein NT-Pro-B Natriuret Pep Total Protein Albumin Triglycerides Arterial Blood Glucose Urine pH Ur Specific [place] Coronavirus (PCR) 04/07/21 04/08/21 04/08/21 19:55 00:16 03:57 WBC RBC Hgb Hct MCV MCHC RDW Plt Count Lymph % (Auto) [place] % (Auto) Lymph # (Auto) [place] # (Auto) Seg Neutrophils % Seg Neuts % (Manual) Lymphocytes % (Manual) Monocytes % (Manual) Nucleated RBC % Seg Neutrophils # Seg Neutrophils # Man Lymphocytes # (Manual) Monocytes # (Manual) PT INR APTT D-Dimer Heparin Anti-Xa Level < 0.10 L ABG pH POC ABG pCO2 POC ABG pO2 ABG pO2 ABG HCO3 ABG O2 Saturation ABG Base Excess ABG Hemoglobin ABG Oxyhemoglobin ABG Sodium ABG Potassium ABG Glucose Oxyhemoglobin Sodium Potassium 5.8 H Chloride 95.5 L Carbon Dioxide 37 H BUN Creatinine 0.5 L Glucose 161 H POC Glucose 175 H Lactic Acid Calcium Phosphorus Magnesium Ferritin Lactate Dehydrogenase C-Reactive Protein NT-Pro-B Natriuret Pep Total Protein Albumin Triglycerides Arterial Blood Glucose Urine pH Ur Specific [place] Coronavirus (PCR) 04/08/21 04/08/21 04/08/21 04:00 05:43 09:26 WBC RBC 3.25 L Hgb 9.9 L Hct 30.8 L MCV 95 H MCHC RDW 16.0 H Plt Count 487 H Lymph % (Auto) [place] % (Auto) Lymph # (Auto) [place] # (Auto) Seg Neutrophils % Seg Neuts % (Manual) Lymphocytes % (Manual) Monocytes % (Manual) Nucleated RBC % Seg Neutrophils # Seg Neutrophils # Man Lymphocytes # (Manual) Monocytes # (Manual) PT INR APTT D-Dimer Heparin Anti-Xa Level ABG pH POC ABG pCO2 POC ABG pO2 ABG pO2 ABG HCO3 ABG O2 Saturation ABG Base Excess ABG Hemoglobin ABG Oxyhemoglobin ABG Sodium ABG Potassium ABG Glucose Oxyhemoglobin Sodium Potassium Chloride Carbon Dioxide BUN Creatinine Glucose POC Glucose 162 H 164 H Lactic Acid Calcium Phosphorus Magnesium Ferritin Lactate Dehydrogenase C-Reactive Protein NT-Pro-B Natriuret Pep Total Protein Albumin Triglycerides Arterial Blood Glucose Urine pH Ur Specific [place] Coronavirus (PCR) 04/08/21 04/08/21 04/08/21 11:53 17:19 20:35 WBC RBC Hgb Hct MCV MCHC RDW Plt Count Lymph % (Auto) [place] % (Auto) Lymph # (Auto) [place] # (Auto) Seg Neutrophils % Seg Neuts % (Manual) Lymphocytes % (Manual) Monocytes % (Manual) Nucleated RBC % Seg Neutrophils # Seg Neutrophils # Man Lymphocytes # (Manual) Monocytes # (Manual) PT INR APTT D-Dimer Heparin Anti-Xa Level ABG pH POC ABG pCO2 POC ABG pO2 ABG pO2 ABG HCO3 ABG O2 Saturation ABG Base Excess ABG Hemoglobin ABG Oxyhemoglobin ABG Sodium ABG Potassium ABG Glucose Oxyhemoglobin Sodium Potassium Chloride Carbon Dioxide BUN Creatinine Glucose POC Glucose 170 H 157 H 190 H Lactic Acid Calcium Phosphorus Magnesium Ferritin Lactate Dehydrogenase C-Reactive Protein NT-Pro-B Natriuret Pep Total Protein Albumin Triglycerides Arterial Blood Glucose Urine pH Ur Specific [place] Coronavirus (PCR) 04/08/21 04/09/21 04/09/21 23:52 04:21 04:21 WBC 11.4 H RBC 2.97 L Hgb 8.9 L Hct 27.8 L MCV MCHC RDW 15.8 H Plt Count 485 H Lymph % (Auto) [place] % (Auto) Lymph # (Auto) [place] # (Auto) Seg Neutrophils % Seg Neuts % (Manual) Lymphocytes % (Manual) Monocytes % (Manual) Nucleated RBC % Seg Neutrophils # Seg Neutrophils # Man Lymphocytes # (Manual) Monocytes # (Manual) PT INR APTT D-Dimer Heparin Anti-Xa Level ABG pH POC ABG pCO2 POC ABG pO2 ABG pO2 ABG HCO3 ABG O2 Saturation ABG Base Excess ABG Hemoglobin ABG Oxyhemoglobin ABG Sodium ABG Potassium ABG Glucose Oxyhemoglobin Sodium Potassium Chloride 97.1 L Carbon Dioxide 40 H BUN 21 H Creatinine 0.5 L Glucose 149 H POC Glucose 170 H Lactic Acid Calcium Phosphorus 1.90 L D Magnesium Ferritin Lactate Dehydrogenase C-Reactive Protein NT-Pro-B Natriuret Pep Total Protein Albumin Triglycerides Arterial Blood Glucose Urine pH Ur Specific [place] Coronavirus (PCR) 04/09/21 04/09/21 04/09/21 05:27 11:55 17:11 WBC RBC Hgb Hct MCV MCHC RDW Plt Count Lymph % (Auto) [place] % (Auto) Lymph # (Auto) [place] # (Auto) Seg Neutrophils % Seg Neuts % (Manual) Lymphocytes % (Manual) Monocytes % (Manual) Nucleated RBC % Seg Neutrophils # Seg Neutrophils # Man Lymphocytes # (Manual) Monocytes # (Manual) PT INR APTT D-Dimer Heparin Anti-Xa Level ABG pH POC ABG pCO2 POC ABG pO2 ABG pO2 ABG HCO3 ABG O2 Saturation ABG Base Excess ABG Hemoglobin ABG Oxyhemoglobin ABG Sodium ABG Potassium ABG Glucose Oxyhemoglobin Sodium Potassium Chloride Carbon Dioxide BUN Creatinine Glucose POC Glucose 144 H 190 H 163 H Lactic Acid Calcium Phosphorus Magnesium Ferritin Lactate Dehydrogenase C-Reactive Protein NT-Pro-B Natriuret Pep Total Protein Albumin Triglycerides Arterial Blood Glucose Urine pH Ur Specific [place] Coronavirus (PCR) 04/09/21 04/09/21 04/09/21 20:10 21:12 23:33 WBC RBC Hgb Hct MCV MCHC RDW Plt Count Lymph % (Auto) [place] % (Auto) Lymph # (Auto) [place] # (Auto) Seg Neutrophils % Seg Neuts % (Manual) Lymphocytes % (Manual) Monocytes % (Manual) Nucleated RBC % Seg Neutrophils # Seg Neutrophils # Man Lymphocytes # (Manual) Monocytes # (Manual) PT INR APTT D-Dimer Heparin Anti-Xa Level ABG pH POC ABG pCO2 POC ABG pO2 ABG pO2 68.1 L ABG HCO3 41.3 H ABG O2 Saturation ABG Base Excess 14.6 H ABG Hemoglobin 10.2 L ABG Oxyhemoglobin ABG Sodium ABG Potassium ABG Glucose Oxyhemoglobin 94.7 L Sodium Potassium Chloride Carbon Dioxide BUN Creatinine Glucose POC Glucose 163 H 164 H Lactic Acid Calcium Phosphorus Magnesium Ferritin Lactate Dehydrogenase C-Reactive Protein NT-Pro-B Natriuret Pep Total Protein Albumin Triglycerides Arterial Blood Glucose Urine pH Ur Specific [place] Coronavirus (PCR) 04/10/21 04/10/21 04/10/21 05:26 11:41 13:00 WBC RBC 3.09 L Hgb 9.3 L Hct 28.3 L MCV MCHC RDW 15.8 H Plt Count 480 H Lymph % (Auto) [place] % (Auto) Lymph # (Auto) [place] # (Auto) Seg Neutrophils % Seg Neuts % (Manual) Lymphocytes % (Manual) Monocytes % (Manual) Nucleated RBC % Seg Neutrophils # Seg Neutrophils # Man Lymphocytes # (Manual) Monocytes # (Manual) PT INR APTT D-Dimer Heparin Anti-Xa Level ABG pH POC ABG pCO2 POC ABG pO2 ABG pO2 ABG HCO3 ABG O2 Saturation ABG Base Excess ABG Hemoglobin ABG Oxyhemoglobin ABG Sodium ABG Potassium ABG Glucose Oxyhemoglobin Sodium Potassium Chloride Carbon Dioxide BUN Creatinine Glucose POC Glucose 172 H 150 H Lactic Acid Calcium Phosphorus Magnesium Ferritin Lactate Dehydrogenase C-Reactive Protein NT-Pro-B Natriuret Pep Total Protein Albumin Triglycerides Arterial Blood Glucose Urine pH Ur Specific [place] Coronavirus (PCR) 04/10/21 04/10/21 04/10/21 13:00 17:46 21:37 WBC RBC Hgb Hct MCV MCHC RDW Plt Count Lymph % (Auto) [place] % (Auto) Lymph # (Auto) [place] # (Auto) Seg Neutrophils % Seg Neuts % (Manual) Lymphocytes % (Manual) Monocytes % (Manual) Nucleated RBC % Seg Neutrophils # Seg Neutrophils # Man Lymphocytes # (Manual) Monocytes # (Manual) PT INR APTT D-Dimer Heparin Anti-Xa Level ABG pH POC ABG pCO2 POC ABG pO2 ABG pO2 ABG HCO3 ABG O2 Saturation ABG Base Excess ABG Hemoglobin ABG Oxyhemoglobin ABG Sodium ABG Potassium ABG Glucose Oxyhemoglobin Sodium Potassium Chloride 96.4 L Carbon Dioxide 34 H BUN Creatinine 0.5 L Glucose 165 H POC Glucose 165 H 166 H Lactic Acid Calcium Phosphorus Magnesium Ferritin Lactate Dehydrogenase C-Reactive Protein NT-Pro-B Natriuret Pep Total Protein Albumin Triglycerides Arterial Blood Glucose Urine pH Ur Specific [place] Coronavirus (PCR) 04/10/21 04/11/21 04/11/21 23:56 04:30 05:39 WBC 11.5 H RBC 3.02 L Hgb 8.9 L Hct 27.8 L MCV MCHC RDW 16.0 H Plt Count 505 H Lymph % (Auto) [place] % (Auto) Lymph # (Auto) [place] # (Auto) Seg Neutrophils % Seg Neuts % (Manual) Lymphocytes % (Manual) Monocytes % (Manual) Nucleated RBC % Seg Neutrophils # Seg Neutrophils # Man Lymphocytes # (Manual) Monocytes # (Manual) PT INR APTT D-Dimer Heparin Anti-Xa Level ABG pH POC ABG pCO2 POC ABG pO2 ABG pO2 ABG HCO3 ABG O2 Saturation ABG Base Excess ABG Hemoglobin ABG Oxyhemoglobin ABG Sodium ABG Potassium ABG Glucose Oxyhemoglobin Sodium Potassium Chloride Carbon Dioxide BUN Creatinine Glucose POC Glucose 156 H 164 H Lactic Acid Calcium Phosphorus Magnesium Ferritin Lactate Dehydrogenase C-Reactive Protein NT-Pro-B Natriuret Pep Total Protein Albumin Triglycerides Arterial Blood Glucose Urine pH Ur Specific [place] Coronavirus (PCR) 04/11/21 04/11/21 04/11/21 06:47 06:47 11:29 WBC RBC 3.35 L Hgb 9.8 L Hct 30.7 L MCV MCHC RDW 16.3 H Plt Count 520 H Lymph % (Auto) [place] % (Auto) Lymph # (Auto) [place] # (Auto) Seg Neutrophils % Seg Neuts % (Manual) 76.0 H Lymphocytes % (Manual) 10.0 L Monocytes % (Manual) Nucleated RBC % Seg Neutrophils # Seg Neutrophils # Man 8.3 H Lymphocytes # (Manual) 1.1 L Monocytes # (Manual) PT INR APTT D-Dimer Heparin Anti-Xa Level ABG pH POC ABG pCO2 POC ABG pO2 ABG pO2 ABG HCO3 ABG O2 Saturation ABG Base Excess ABG Hemoglobin ABG Oxyhemoglobin ABG Sodium ABG Potassium ABG Glucose Oxyhemoglobin Sodium Potassium Chloride 97.7 L Carbon Dioxide 34 H BUN Creatinine 0.4 L Glucose 178 H POC Glucose 170 H Lactic Acid Calcium Phosphorus Magnesium Ferritin Lactate Dehydrogenase C-Reactive Protein NT-Pro-B Natriuret Pep Total Protein Albumin Triglycerides Arterial Blood Glucose Urine pH Ur Specific [place] Coronavirus (PCR) 04/11/21 04/11/21 04/11/21 18:17 18:17 18:17 WBC RBC 3.22 L Hgb 9.5 L Hct 29.8 L MCV MCHC RDW 16.0 H Plt Count Lymph % (Auto) [place] % (Auto) Lymph # (Auto) [place] # (Auto) Seg Neutrophils % Seg Neuts % (Manual) Lymphocytes % (Manual) Monocytes % (Manual) Nucleated RBC % Seg Neutrophils # Seg Neutrophils # Man Lymphocytes # (Manual) Monocytes # (Manual) PT INR APTT 61.1 H* D-Dimer Heparin Anti-Xa Level ABG pH POC ABG pCO2 POC ABG pO2 ABG pO2 ABG HCO3 ABG O2 Saturation ABG Base Excess ABG Hemoglobin ABG Oxyhemoglobin ABG Sodium ABG Potassium ABG Glucose Oxyhemoglobin Sodium Potassium Chloride Carbon Dioxide BUN Creatinine 0.3 L Glucose POC Glucose Lactic Acid Calcium Phosphorus Magnesium Ferritin Lactate Dehydrogenase C-Reactive Protein NT-Pro-B Natriuret Pep Total Protein Albumin Triglycerides Arterial Blood Glucose Urine pH Ur Specific [place] Coronavirus (PCR) 04/11/21 04/12/21 04/12/21 18:25 00:19 05:11 WBC RBC 2.92 L Hgb 8.6 L Hct 26.9 L MCV MCHC RDW 16.3 H Plt Count 460 H Lymph % (Auto) [place] % (Auto) Lymph # (Auto) [place] # (Auto) Seg Neutrophils % Seg Neuts % (Manual) Lymphocytes % (Manual) Monocytes % (Manual) Nucleated RBC % Seg Neutrophils # Seg Neutrophils # Man Lymphocytes # (Manual) Monocytes # (Manual) PT INR APTT D-Dimer Heparin Anti-Xa Level ABG pH POC ABG pCO2 POC ABG pO2 ABG pO2 ABG HCO3 ABG O2 Saturation ABG Base Excess ABG Hemoglobin ABG Oxyhemoglobin ABG Sodium ABG Potassium ABG Glucose Oxyhemoglobin Sodium Potassium Chloride Carbon Dioxide BUN Creatinine Glucose POC Glucose 167 H 128 H Lactic Acid Calcium Phosphorus Magnesium Ferritin Lactate Dehydrogenase C-Reactive Protein NT-Pro-B Natriuret Pep Total Protein Albumin Triglycerides Arterial Blood Glucose Urine pH Ur Specific [place] Coronavirus (PCR) 04/12/21 04/12/21 04/12/21 05:11 05:11 06:23 WBC RBC Hgb Hct MCV MCHC RDW Plt Count Lymph % (Auto) [place] % (Auto) Lymph # (Auto) [place] # (Auto) Seg Neutrophils % Seg Neuts % (Manual) Lymphocytes % (Manual) Monocytes % (Manual) Nucleated RBC % Seg Neutrophils # Seg Neutrophils # Man Lymphocytes # (Manual) Monocytes # (Manual) PT INR APTT D-Dimer Heparin Anti-Xa Level 1.03 H ABG pH POC ABG pCO2 POC ABG pO2 ABG pO2 ABG HCO3 ABG O2 Saturation ABG Base Excess ABG Hemoglobin ABG Oxyhemoglobin ABG Sodium ABG Potassium ABG Glucose Oxyhemoglobin Sodium Potassium Chloride Carbon Dioxide 34 H BUN Creatinine 0.3 L Glucose 153 H POC Glucose 162 H Lactic Acid Calcium Phosphorus Magnesium Ferritin Lactate Dehydrogenase C-Reactive Protein NT-Pro-B Natriuret Pep Total Protein Albumin Triglycerides Arterial Blood Glucose Urine pH Ur Specific [place] Coronavirus (PCR) 0204/12/21 04/12/21 09:45 11:08 15:56 WBC RBC Hgb Hct MCV MCHC RDW Plt Count Lymph % (Auto) [place] % (Auto) Lymph # (Auto) [place] # (Auto) Seg Neutrophils % Seg Neuts % (Manual) Lymphocytes % (Manual) Monocytes % (Manual) Nucleated RBC % Seg Neutrophils # Seg Neutrophils # Man Lymphocytes # (Manual) Monocytes # (Manual) PT INR APTT D-Dimer Heparin Anti-Xa Level ABG pH POC ABG pCO2 POC ABG pO2 ABG pO2 70.8 L ABG HCO3 41.0 H ABG O2 Saturation ABG Base Excess 13.7 H ABG Hemoglobin 8.3 L ABG Oxyhemoglobin ABG Sodium ABG Potassium ABG Glucose Oxyhemoglobin 94.0 L Sodium Potassium Chloride Carbon Dioxide BUN Creatinine Glucose POC Glucose 174 H 146 H Lactic Acid Calcium Phosphorus Magnesium Ferritin Lactate Dehydrogenase C-Reactive Protein NT-Pro-B Natriuret Pep Total Protein Albumin Triglycerides Arterial Blood Glucose Urine pH Ur Specific [place] Coronavirus (PCR) 04/12/21 04/12/21 04/13/21 21:55 23:25 04:34 WBC 12.5 H RBC 2.97 L Hgb 8.9 L Hct 27.3 L MCV MCHC RDW 16.4 H Plt Count 470 H Lymph % (Auto) [place] % (Auto) Lymph # (Auto) [place] # (Auto) Seg Neutrophils % Seg Neuts % (Manual) Lymphocytes % (Manual) Monocytes % (Manual) Nucleated RBC % Seg Neutrophils # Seg Neutrophils # Man Lymphocytes # (Manual) Monocytes # (Manual) PT INR APTT D-Dimer Heparin Anti-Xa Level ABG pH POC ABG pCO2 POC ABG pO2 ABG pO2 ABG HCO3 ABG O2 Saturation ABG Base Excess ABG Hemoglobin ABG Oxyhemoglobin ABG Sodium ABG Potassium ABG Glucose Oxyhemoglobin Sodium Potassium Chloride Carbon Dioxide BUN Creatinine Glucose POC Glucose 142 H 170 H Lactic Acid Calcium Phosphorus Magnesium Ferritin Lactate Dehydrogenase C-Reactive Protein NT-Pro-B Natriuret Pep Total Protein Albumin Triglycerides Arterial Blood Glucose Urine pH Ur Specific [place] Coronavirus (PCR) 04/13/21 04/13/21 04/13/21 04:34 05:17 11:14 WBC RBC Hgb Hct MCV MCHC RDW Plt Count Lymph % (Auto) [place] % (Auto) Lymph # (Auto) [place] # (Auto) Seg Neutrophils % Seg Neuts % (Manual) Lymphocytes % (Manual) Monocytes % (Manual) Nucleated RBC % Seg Neutrophils # Seg Neutrophils # Man Lymphocytes # (Manual) Monocytes # (Manual) PT INR APTT D-Dimer Heparin Anti-Xa Level ABG pH POC ABG pCO2 POC ABG pO2 ABG pO2 ABG HCO3 ABG O2 Saturation ABG Base Excess ABG Hemoglobin ABG Oxyhemoglobin ABG Sodium ABG Potassium ABG Glucose Oxyhemoglobin Sodium Potassium Chloride 96.6 L Carbon Dioxide 41 H* D BUN Creatinine 0.3 L Glucose 171 H POC Glucose 141 H 149 H Lactic Acid Calcium Phosphorus Magnesium Ferritin Lactate Dehydrogenase C-Reactive Protein NT-Pro-B Natriuret Pep Total Protein Albumin Triglycerides Arterial Blood Glucose Urine pH Ur Specific [place] Coronavirus (PCR) 04/13/21 04/13/21 04/14/21 15:51 23:35 04:32 WBC 13.8 H RBC 2.64 L Hgb 8.0 L Hct 24.1 L MCV MCHC RDW 16.1 H Plt Count Lymph % (Auto) [place] % (Auto) Lymph # (Auto) [place] # (Auto) Seg Neutrophils % Seg Neuts % (Manual) Lymphocytes % (Manual) Monocytes % (Manual) Nucleated RBC % Seg Neutrophils # Seg Neutrophils # Man Lymphocytes # (Manual) Monocytes # (Manual) PT INR APTT D-Dimer Heparin Anti-Xa Level ABG pH POC ABG pCO2 POC ABG pO2 ABG pO2 ABG HCO3 ABG O2 Saturation ABG Base Excess ABG Hemoglobin ABG Oxyhemoglobin ABG Sodium ABG Potassium ABG Glucose Oxyhemoglobin Sodium Potassium Chloride Carbon Dioxide BUN Creatinine Glucose POC Glucose 136 H 167 H Lactic Acid Calcium Phosphorus Magnesium Ferritin Lactate Dehydrogenase C-Reactive Protein NT-Pro-B Natriuret Pep Total Protein Albumin Triglycerides Arterial Blood Glucose Urine pH Ur Specific [place] Coronavirus (PCR) 04/14/21 04/14/21 04/14/21 04:32 05:18 11:03 WBC RBC Hgb Hct MCV MCHC RDW Plt Count Lymph % (Auto) [place] % (Auto) Lymph # (Auto) [place] # (Auto) Seg Neutrophils % Seg Neuts % (Manual) Lymphocytes % (Manual) Monocytes % (Manual) Nucleated RBC % Seg Neutrophils # Seg Neutrophils # Man Lymphocytes # (Manual) Monocytes # (Manual) PT INR APTT D-Dimer Heparin Anti-Xa Level ABG pH POC ABG pCO2 POC ABG pO2 ABG pO2 ABG HCO3 ABG O2 Saturation ABG Base Excess ABG Hemoglobin ABG Oxyhemoglobin ABG Sodium ABG Potassium ABG Glucose Oxyhemoglobin Sodium Potassium Chloride 95.5 L Carbon Dioxide 38 H BUN Creatinine 0.4 L Glucose 141 H POC Glucose 140 H 143 H Lactic Acid Calcium Phosphorus Magnesium Ferritin Lactate Dehydrogenase C-Reactive Protein NT-Pro-B Natriuret Pep Total Protein Albumin Triglycerides Arterial Blood Glucose Urine pH Ur Specific [place] Coronavirus (PCR) 04/14/21 04/14/21 04/14/21 16:38 23:46 Unknown WBC RBC Hgb Hct MCV MCHC RDW Plt Count Lymph % (Auto) [place] % (Auto) Lymph # (Auto) [place] # (Auto) Seg Neutrophils % Seg Neuts % (Manual) Lymphocytes % (Manual) Monocytes % (Manual) Nucleated RBC % Seg Neutrophils # Seg Neutrophils # Man Lymphocytes # (Manual) Monocytes # (Manual) PT INR APTT D-Dimer Heparin Anti-Xa Level ABG pH POC ABG pCO2 POC ABG pO2 ABG pO2 ABG HCO3 ABG O2 Saturation ABG Base Excess ABG Hemoglobin ABG Oxyhemoglobin ABG Sodium ABG Potassium ABG Glucose Oxyhemoglobin Sodium Potassium Chloride Carbon Dioxide BUN Creatinine Glucose POC Glucose 157 H 155 H Lactic Acid Calcium Phosphorus Magnesium Ferritin Lactate Dehydrogenase C-Reactive Protein NT-Pro-B Natriuret Pep Total Protein Albumin Triglycerides Arterial Blood Glucose Urine pH 8.0 H Ur Specific [place] Coronavirus (PCR) 04/15/21 04/15/21 04/15/21 04:44 04:44 05:52 WBC 15.8 H RBC 2.96 L Hgb 8.9 L Hct 27.1 L MCV MCHC RDW 16.5 H Plt Count 507 H Lymph % (Auto) [place] % (Auto) Lymph # (Auto) [place] # (Auto) Seg Neutrophils % Seg Neuts % (Manual) Lymphocytes % (Manual) Monocytes % (Manual) Nucleated RBC % Seg Neutrophils # Seg Neutrophils # Man Lymphocytes # (Manual) Monocytes # (Manual) PT INR APTT D-Dimer Heparin Anti-Xa Level ABG pH POC ABG pCO2 POC ABG pO2 ABG pO2 ABG HCO3 ABG O2 Saturation ABG Base Excess ABG Hemoglobin ABG Oxyhemoglobin ABG Sodium ABG Potassium ABG Glucose Oxyhemoglobin Sodium Potassium Chloride 96.9 L Carbon Dioxide 38 H BUN Creatinine 0.4 L Glucose 163 H POC Glucose 167 H Lactic Acid Calcium Phosphorus Magnesium Ferritin Lactate Dehydrogenase C-Reactive Protein NT-Pro-B Natriuret Pep Total Protein Albumin Triglycerides Arterial Blood Glucose Urine pH Ur Specific [place] Coronavirus (PCR) 04/15/21 04/15/21 04/15/21 11:35 17:20 18:10 WBC RBC Hgb Hct MCV MCHC RDW Plt Count Lymph % (Auto) [place] % (Auto) Lymph # (Auto) [place] # (Auto) Seg Neutrophils % Seg Neuts % (Manual) Lymphocytes % (Manual) Monocytes % (Manual) Nucleated RBC % Seg Neutrophils # Seg Neutrophils # Man Lymphocytes # (Manual) Monocytes # (Manual) PT INR APTT D-Dimer Heparin Anti-Xa Level ABG pH 7.477 H POC ABG pCO2 POC ABG pO2 ABG pO2 ABG HCO3 40.6 H ABG O2 Saturation ABG Base Excess 15.2 H ABG Hemoglobin 9.0 L ABG Oxyhemoglobin ABG Sodium ABG Potassium ABG Glucose Oxyhemoglobin 94.7 L Sodium Potassium Chloride Carbon Dioxide BUN Creatinine Glucose POC Glucose 179 H 165 H Lactic Acid Calcium Phosphorus Magnesium Ferritin Lactate Dehydrogenase C-Reactive Protein NT-Pro-B Natriuret Pep Total Protein Albumin Triglycerides Arterial Blood Glucose Urine pH Ur Specific [place] Coronavirus (PCR) 04/15/21 04/16/21 04/16/21 23:39 04:33 04:33 WBC 13.1 H RBC 3.26 L Hgb 9.5 L Hct 30.2 L MCV MCHC 31 L RDW 16.2 H Plt Count Lymph % (Auto) [place] % (Auto) Lymph # (Auto) [place] # (Auto) Seg Neutrophils % Seg Neuts % (Manual) Lymphocytes % (Manual) Monocytes % (Manual) Nucleated RBC % Seg Neutrophils # Seg Neutrophils # Man Lymphocytes # (Manual) Monocytes # (Manual) PT INR APTT D-Dimer Heparin Anti-Xa Level ABG pH POC ABG pCO2 POC ABG pO2 ABG pO2 ABG HCO3 ABG O2 Saturation ABG Base Excess ABG Hemoglobin ABG Oxyhemoglobin ABG Sodium ABG Potassium ABG Glucose Oxyhemoglobin Sodium Potassium Chloride 95.8 L Carbon Dioxide 34 H BUN 24 H Creatinine 0.4 L Glucose 153 H POC Glucose 155 H Lactic Acid Calcium Phosphorus Magnesium 2.40 H Ferritin Lactate Dehydrogenase C-Reactive Protein NT-Pro-B Natriuret Pep Total Protein Albumin Triglycerides Arterial Blood Glucose Urine pH Ur Specific [place] Coronavirus (PCR) 04/16/21 04/16/21 04/16/21 04:55 05:29 11:02 WBC RBC Hgb Hct MCV MCHC RDW Plt Count Lymph % (Auto) [place] % (Auto) Lymph # (Auto) [place] # (Auto) Seg Neutrophils % Seg Neuts % (Manual) Lymphocytes % (Manual) Monocytes % (Manual) Nucleated RBC % Seg Neutrophils # Seg Neutrophils # Man Lymphocytes # (Manual) Monocytes # (Manual) PT INR APTT D-Dimer Heparin Anti-Xa Level ABG pH 7.487 H POC ABG pCO2 POC ABG pO2 ABG pO2 75.4 L ABG HCO3 40.6 H ABG O2 Saturation ABG Base Excess 15.3 H ABG Hemoglobin 8.9 L ABG Oxyhemoglobin ABG Sodium ABG Potassium ABG Glucose Oxyhemoglobin Sodium Potassium Chloride Carbon Dioxide BUN Creatinine Glucose POC Glucose 168 H 170 H Lactic Acid Calcium Phosphorus Magnesium Ferritin Lactate Dehydrogenase C-Reactive Protein NT-Pro-B Natriuret Pep Total Protein Albumin Triglycerides Arterial Blood Glucose Urine pH Ur Specific [place] Coronavirus (PCR) 04/16/21 04/16/21 04/17/21 16:13 23:41 04:25 WBC 12.5 H RBC 3.00 L Hgb 8.9 L Hct 27.2 L MCV MCHC RDW 16.0 H Plt Count Lymph % (Auto) [place] % (Auto) Lymph # (Auto) [place] # (Auto) Seg Neutrophils % Seg Neuts % (Manual) Lymphocytes % (Manual) Monocytes % (Manual) Nucleated RBC % Seg Neutrophils # Seg Neutrophils # Man Lymphocytes # (Manual) Monocytes # (Manual) PT INR APTT D-Dimer Heparin Anti-Xa Level ABG pH POC ABG pCO2 POC ABG pO2 ABG pO2 ABG HCO3 ABG O2 Saturation ABG Base Excess ABG Hemoglobin ABG Oxyhemoglobin ABG Sodium ABG Potassium ABG Glucose Oxyhemoglobin Sodium Potassium Chloride Carbon Dioxide BUN Creatinine Glucose POC Glucose 167 H 150 H Lactic Acid Calcium Phosphorus Magnesium Ferritin Lactate Dehydrogenase C-Reactive Protein NT-Pro-B Natriuret Pep Total Protein Albumin Triglycerides Arterial Blood Glucose Urine pH Ur Specific [place] Coronavirus (PCR) 04/17/21 04/17/21 04/17/21 04:25 05:23 11:18 WBC RBC Hgb Hct MCV MCHC RDW Plt Count Lymph % (Auto) [place] % (Auto) Lymph # (Auto) [place] # (Auto) Seg Neutrophils % Seg Neuts % (Manual) Lymphocytes % (Manual) Monocytes % (Manual) Nucleated RBC % Seg Neutrophils # Seg Neutrophils # Man Lymphocytes # (Manual) Monocytes # (Manual) PT INR APTT D-Dimer Heparin Anti-Xa Level ABG pH POC ABG pCO2 POC ABG pO2 ABG pO2 ABG HCO3 ABG O2 Saturation ABG Base Excess ABG Hemoglobin ABG Oxyhemoglobin ABG Sodium ABG Potassium ABG Glucose Oxyhemoglobin Sodium 136 L Potassium Chloride 92.4 L Carbon Dioxide 36 H BUN 23 H Creatinine 0.4 L Glucose 145 H POC Glucose 128 H 163 H Lactic Acid Calcium Phosphorus Magnesium Ferritin Lactate Dehydrogenase C-Reactive Protein NT-Pro-B Natriuret Pep Total Protein Albumin Triglycerides Arterial Blood Glucose Urine pH Ur Specific [place] Coronavirus (PCR) 04/17/21 04/17/21 04/18/21 16:50 21:04 00:18 WBC RBC Hgb Hct MCV MCHC RDW Plt Count Lymph % (Auto) [place] % (Auto) Lymph # (Auto) [place] # (Auto) Seg Neutrophils % Seg Neuts % (Manual) Lymphocytes % (Manual) Monocytes % (Manual) Nucleated RBC % Seg Neutrophils # Seg Neutrophils # Man Lymphocytes # (Manual) Monocytes # (Manual) PT INR APTT D-Dimer Heparin Anti-Xa Level ABG pH POC ABG pCO2 POC ABG pO2 ABG pO2 ABG HCO3 ABG O2 Saturation ABG Base Excess ABG Hemoglobin ABG Oxyhemoglobin ABG Sodium ABG Potassium ABG Glucose Oxyhemoglobin Sodium Potassium Chloride Carbon Dioxide BUN Creatinine Glucose POC Glucose 137 H 186 H 194 H Lactic Acid Calcium Phosphorus Magnesium Ferritin Lactate Dehydrogenase C-Reactive Protein NT-Pro-B Natriuret Pep Total Protein Albumin Triglycerides Arterial Blood Glucose Urine pH Ur Specific [place] Coronavirus (PCR) 04/18/21 04/18/21 04/18/21 04:20 04:20 05:21 WBC 14.2 H RBC 2.92 L Hgb 8.5 L Hct 26.3 L MCV MCHC RDW 16.1 H Plt Count Lymph % (Auto) [place] % (Auto) Lymph # (Auto) [place] # (Auto) Seg Neutrophils % Seg Neuts % (Manual) Lymphocytes % (Manual) Monocytes % (Manual) Nucleated RBC % Seg Neutrophils # Seg Neutrophils # Man Lymphocytes # (Manual) Monocytes # (Manual) PT INR APTT D-Dimer Heparin Anti-Xa Level ABG pH POC ABG pCO2 POC ABG pO2 ABG pO2 ABG HCO3 ABG O2 Saturation ABG Base Excess ABG Hemoglobin ABG Oxyhemoglobin ABG Sodium ABG Potassium ABG Glucose Oxyhemoglobin Sodium Potassium Chloride 95.7 L Carbon Dioxide 33 H BUN 21 H Creatinine 0.3 L Glucose 120 H POC Glucose 107 H Lactic Acid Calcium Phosphorus Magnesium Ferritin Lactate Dehydrogenase C-Reactive Protein NT-Pro-B Natriuret Pep Total Protein Albumin Triglycerides Arterial Blood Glucose Urine pH Ur Specific [place] Coronavirus (PCR) 04/18/21 04/18/21 04/18/21 05:26 11:30 11:33 WBC RBC Hgb Hct MCV MCHC RDW Plt Count Lymph % (Auto) [place] % (Auto) Lymph # (Auto) [place] # (Auto) Seg Neutrophils % Seg Neuts % (Manual) Lymphocytes % (Manual) Monocytes % (Manual) Nucleated RBC % Seg Neutrophils # Seg Neutrophils # Man Lymphocytes # (Manual) Monocytes # (Manual) PT INR APTT D-Dimer Heparin Anti-Xa Level ABG pH 7.469 H POC ABG pCO2 POC ABG pO2 ABG pO2 108.9 H ABG HCO3 36.2 H ABG O2 Saturation ABG Base Excess 11.2 H ABG Hemoglobin 8.8 L ABG Oxyhemoglobin ABG Sodium ABG Potassium ABG Glucose Oxyhemoglobin Sodium Potassium Chloride Carbon Dioxide BUN Creatinine Glucose POC Glucose 111 H 113 H Lactic Acid Calcium Phosphorus Magnesium Ferritin Lactate Dehydrogenase C-Reactive Protein NT-Pro-B Natriuret Pep Total Protein Albumin Triglycerides Arterial Blood Glucose Urine pH Ur Specific [place] Coronavirus (PCR) 04/18/21 04/18/21 04/19/21 16:53 23:26 04:26 WBC 13.6 H RBC 2.69 L Hgb 8.5 L Hct 24.4 L MCV MCHC 35 H RDW 15.9 H Plt Count Lymph % (Auto) [place] % (Auto) Lymph # (Auto) [place] # (Auto) Seg Neutrophils % Seg Neuts % (Manual) Lymphocytes % (Manual) Monocytes % (Manual) Nucleated RBC % Seg Neutrophils # Seg Neutrophils # Man Lymphocytes # (Manual) Monocytes # (Manual) PT INR APTT D-Dimer Heparin Anti-Xa Level ABG pH POC ABG pCO2 POC ABG pO2 ABG pO2 ABG HCO3 ABG O2 Saturation ABG Base Excess ABG Hemoglobin ABG Oxyhemoglobin ABG Sodium ABG Potassium ABG Glucose Oxyhemoglobin Sodium Potassium Chloride Carbon Dioxide BUN Creatinine Glucose POC Glucose 139 H 137 H Lactic Acid Calcium Phosphorus Magnesium Ferritin Lactate Dehydrogenase C-Reactive Protein NT-Pro-B Natriuret Pep Total Protein Albumin Triglycerides Arterial Blood Glucose Urine pH Ur Specific [place] Coronavirus (PCR) 04/19/21 04/19/21 04/19/21 04:26 05:16 11:01 WBC RBC Hgb Hct MCV MCHC RDW Plt Count Lymph % (Auto) [place] % (Auto) Lymph # (Auto) [place] # (Auto) Seg Neutrophils % Seg Neuts % (Manual) Lymphocytes % (Manual) Monocytes % (Manual) Nucleated RBC % Seg Neutrophils # Seg Neutrophils # Man Lymphocytes # (Manual) Monocytes # (Manual) PT INR APTT D-Dimer Heparin Anti-Xa Level ABG pH POC ABG pCO2 POC ABG pO2 ABG pO2 ABG HCO3 ABG O2 Saturation ABG Base Excess ABG Hemoglobin ABG Oxyhemoglobin ABG Sodium ABG Potassium ABG Glucose Oxyhemoglobin Sodium Potassium Chloride Carbon Dioxide BUN Creatinine 0.3 L Glucose 163 H POC Glucose 154 H 164 H Lactic Acid Calcium Phosphorus Magnesium Ferritin Lactate Dehydrogenase C-Reactive Protein NT-Pro-B Natriuret Pep Total Protein Albumin Triglycerides Arterial Blood Glucose Urine pH Ur Specific [place] Coronavirus (PCR) 04/19/21 04/19/21 04/19/21 15:55 21:00 23:13 WBC RBC Hgb Hct MCV MCHC RDW Plt Count Lymph % (Auto) [place] % (Auto) Lymph # (Auto) [place] # (Auto) Seg Neutrophils % Seg Neuts % (Manual) Lymphocytes % (Manual) Monocytes % (Manual) Nucleated RBC % Seg Neutrophils # Seg Neutrophils # Man Lymphocytes # (Manual) Monocytes # (Manual) PT INR APTT D-Dimer Heparin Anti-Xa Level ABG pH POC ABG pCO2 POC ABG pO2 ABG pO2 ABG HCO3 ABG O2 Saturation ABG Base Excess ABG Hemoglobin ABG Oxyhemoglobin ABG Sodium ABG Potassium ABG Glucose Oxyhemoglobin Sodium Potassium Chloride Carbon Dioxide BUN Creatinine Glucose POC Glucose 138 H 151 H 147 H Lactic Acid Calcium Phosphorus Magnesium Ferritin Lactate Dehydrogenase C-Reactive Protein NT-Pro-B Natriuret Pep Total Protein Albumin Triglycerides Arterial Blood Glucose Urine pH Ur Specific [place] Coronavirus (PCR) 04/20/21 04/20/21 04/20/21 04:17 04:17 05:15 WBC 13.1 H RBC 2.94 L Hgb 8.8 L Hct 26.8 L MCV MCHC RDW 16.2 H Plt Count Lymph % (Auto) [place] % (Auto) Lymph # (Auto) [place] # (Auto) Seg Neutrophils % Seg Neuts % (Manual) Lymphocytes % (Manual) Monocytes % (Manual) Nucleated RBC % Seg Neutrophils # Seg Neutrophils # Man Lymphocytes # (Manual) Monocytes # (Manual) PT INR APTT D-Dimer Heparin Anti-Xa Level ABG pH POC ABG pCO2 POC ABG pO2 ABG pO2 ABG HCO3 ABG O2 Saturation ABG Base Excess ABG Hemoglobin ABG Oxyhemoglobin ABG Sodium ABG Potassium ABG Glucose Oxyhemoglobin Sodium 135 L Potassium Chloride Carbon Dioxide BUN Creatinine 0.3 L Glucose 151 H POC Glucose 126 H Lactic Acid Calcium 8.3 L Phosphorus Magnesium Ferritin Lactate Dehydrogenase C-Reactive Protein NT-Pro-B Natriuret Pep Total Protein Albumin Triglycerides Arterial Blood Glucose Urine pH Ur Specific [place] Coronavirus (PCR) 04/20/21 04/20/21 04/20/21 11:03 16:01 23:54 WBC RBC Hgb Hct MCV MCHC RDW Plt Count Lymph % (Auto) [place] % (Auto) Lymph # (Auto) [place] # (Auto) Seg Neutrophils % Seg Neuts % (Manual) Lymphocytes % (Manual) Monocytes % (Manual) Nucleated RBC % Seg Neutrophils # Seg Neutrophils # Man Lymphocytes # (Manual) Monocytes # (Manual) PT INR APTT D-Dimer Heparin Anti-Xa Level ABG pH POC ABG pCO2 POC ABG pO2 ABG pO2 ABG HCO3 ABG O2 Saturation ABG Base Excess ABG Hemoglobin ABG Oxyhemoglobin ABG Sodium ABG Potassium ABG Glucose Oxyhemoglobin Sodium Potassium Chloride Carbon Dioxide BUN Creatinine Glucose POC Glucose 154 H 152 H 145 H Lactic Acid Calcium Phosphorus Magnesium Ferritin Lactate Dehydrogenase C-Reactive Protein NT-Pro-B Natriuret Pep Total Protein Albumin Triglycerides Arterial Blood Glucose Urine pH Ur Specific [place] Coronavirus (PCR) 04/21/21 04/21/21 04:39 11:48 WBC RBC Hgb Hct MCV MCHC RDW Plt Count Lymph % (Auto) [place] % (Auto) Lymph # (Auto) [place] # (Auto) Seg Neutrophils % Seg Neuts % (Manual) Lymphocytes % (Manual) Monocytes % (Manual) Nucleated RBC % Seg Neutrophils # Seg Neutrophils # Man Lymphocytes # (Manual) Monocytes # (Manual) PT INR APTT D-Dimer Heparin Anti-Xa Level ABG pH POC ABG pCO2 POC ABG pO2 ABG pO2 ABG HCO3 ABG O2 Saturation ABG Base Excess ABG Hemoglobin ABG Oxyhemoglobin ABG Sodium ABG Potassium ABG Glucose Oxyhemoglobin Sodium Potassium Chloride Carbon Dioxide BUN Creatinine Glucose POC Glucose 147 H 154 H Lactic Acid Calcium Phosphorus Magnesium Ferritin Lactate Dehydrogenase C-Reactive Protein NT-Pro-B Natriuret Pep Total Protein Albumin Triglycerides Arterial Blood Glucose Urine pH Ur Specific [place] Coronavirus (PCR) Allied health notes reviewed: nursing
[2021-04-21 12:26] LABS: Hematocrit 28.2 % (35.5-45.6); Hemoglobin 9.3 gm/dl (11.8-15.2); Mean Corpuscular HGB Conc 33 % (32-34); Mean Corpuscular Volume 92 fl (84-94); Platelet Count 410 K/mm3 (140-440); Red Blood Count 3.08 M/mm3 (3.65-5.03); Red Cell Distribution Width 16.5 % (13.2-15.2)
[2021-04-21 12:50] LABS: Blood Urea Nitrogen 18 mg/dL (9-20); Hemolysis Index 2
[2021-04-21 13:07] LABS: BUN/Creatinine Ratio 60
--- NOTE | 2021-04-21 16:54 | Progress Note ---
<FLORIANMARISABELLester - Last Filed: 04/21/21 16:49> Assessment and Plan Assessment and plan: This is a 61-year-old man with HTN and DM admitted with COVID-19 pneumonia, acute hypoxic respiratory failure, sepsis Neuro: Acute encephalopathy -s/p fentanyl gtt, Seroquel and Librium -Avoid delirium -Reorientation as needed -Maintain sleep-wake cycle -As needed analgesia -admit: CT head shows no acute intracranial abnormality -Neurology consulted, appreciate recommendations -04/10 CT head shows no focal mass, hemorrhage, hydrocephalus or acute large territorial infarct but shows significant sinus disease with significant opacification of the mastoids bilaterally and mild middle ear cavity disease suggested as well -MRI brain shows no gross evidence of acute or significant intracranial abnormality, exam limited by motion artifact, partial opacification of mastoid air cells bilaterally, more extensively on the right, no definite evidence of fluid within the middle ear cavity. -PT consulted, appreciate recommendations Cardiac: h/o Hypertension -Cardiology consulted, appreciate recommendations -Blood pressure monitoring per protocol -Echocardiogram shows a mildly dilated ascending aorta, normal LV systolic function, mild concentric LVH, LVEF 60 to 65% -Antihypertensive regimen: Hydralazine, metoprolol, amlodipine Respiratory: Acute hypoxic respiratory failure -CCM consulted, appreciate recommendations -Intubated on 03/10 with 7.50 ETT at 24 at the lips, s/p trach on 03/29 -T-piece -Pulmonary hygiene -SPO2 monitoring GI: Obesity, external hemorrhoids -24 hours +880 mL -PPI -NTR consulted for tube feedings -BR: miralax -As needed Preparation H : Urinary retention -Nephrology consulted, appreciate recommendations -Strict intake and output -Renally dose medications -Avoid nephrotoxic medications -Doxazosin increased to twice daily -Good catheter removed 04/17 and replaced 04/21 -Lasix -trend BMP ID: Severe sepsis (POA), COVID-19 pneumonia, stenotrophomonas maltophilia in tracheal aspirate, MSSA pneumonia -Infectious disease consulted, appreciate recommendations -S/p remdesivir for 5 days -S/p Actemra 03/10/2021 -f/u blood culture -Monitor WBC and temperature curve -s/p steroids -IV Cefepime started 04/15, increased d/t MO by ID -f/u procal in am -03/16 Fungitell and histoplasma negative Heme: Acute right upper extremity DVT , superficial thrombus in left gastrocnemius vein -Bilateral lower extremity ultrasound negative for DVT, superficial thrombus in left gastrocnemius vein -repeat BLE Doppler US show superficial thrombus -Repeat bilateral upper extremity ultrasound shows DVT in right upper extremity -heparin drip to eliquis PO -repeat BLE UE dopplar showed superficial thrombus within the gastrocnemius vein unchanged from previous study -CTA chest shows no gross pulm embolism -Trend CBC -SCDs to BLE while in bed -Transfuse hemoglobin less than 7 -Monitor for signs of bleeding Endo: h/o DM -Avoid hypoglycemia -SSI -Accu-Cheks q. 6 -Long-acting insulin, titrate as needed The high probability of a clinically significant, sudden or life threatening deterioration of the [multi] system(s) required my full and direct attention, intervention and personal management. The aggregate critical care time was [60] minutes. This time is in addition to time spent performing reported procedures but includes the following: [x] Data Review and interpretation [x] Patient assessment and monitoring of vital signs [x] Documentation [x] Medication orders and management Disposition Plan: transfer to [facility] Total Time Spent with Patient (Minutes): 60 History Interval history: This is a 61-year-old male with HTN and DM who presented to the emergency department on 03/09 with shortness of breath and hypoxia via EMS. Patient had apparently been feeling ill for proxy 1 week prior to mentation. Upon EMS arrival patient SPO2 was in the low 70s and improved to upper 80slow 90s on nonrebreather and he was transported to [facility] in the emergency department patient was noted to be hypoxic and placed on a BiPAP with improvement to mentation and hypoxia. CXR showed bilateral patchy infiltrates. Lab work showed leukocytosis, elevated D-dimer, hyponatremia, hypochloremia and elevated COVID-19 markers with elevated BNP. CTA chest showed no pulmonary embolism. Patient was admitted to the hospitalist service as a COVID-19 PUI and started on antibiotics and Decadron with consult to infectious disease. 03/09: The patient was seen and evaluated today, and he was found to be hemodynamically stable. The patient is currently on BiPAP for possible COVID-19 pneumonia. He was started on Lovenox 1mg/kg for DVT ppx in the setting of d- dimer > 10,000. Infectious Disease was consulted. The patient is pending a TTE. 03/10: No acute events overnight, patient was intubated in the afternoon transferred to ICU 03/11: Patient started on Lantus, free water flushes increased, propofol drip resumed and oral antihypertensive added. 03/12: lantus increased, k at 5, will monitor. I updated his family and his stated that he is not vaccinated. He does have HTN and she will call the RN to update home medications. She did say he takes bystolic and amlopine. She inquired about ventilator and lab work. She had no further questions. 03/13: KVNG overnight. Patient remains hyperglycemic, basal insulin adjusted and increased to Q12hrs. Patient is overall net positive since admit X1 dose of IV lasix, repeat BMP this afternoon. 03/14: Failed SAT this am due to increase agitation, tachycardia and hypertension. Remains on propofol and fentanyl gtt. Hyperkalemia treated with PO kayaxalate. Patient responded to IV lasix yesterday additional dose again today for a net negative balance. Repeat BMP this afternoon. Insulin adjusted for hyperglycemia. 03/15: Remains encephalopathic, not following commansd. Orders placed for CT head/Brain and Neuro consulted. Rectal bleeding subsided, most likely due to hemorrhoids. H&H is stable will continue to monitor. Kayaxexalate for high K, repeat labs 4 to 6hrs post treatment. 03/16: Still agiated this am, CT head with no acute Abn. CXR and ABG noted- evolving pna and worsening hypoxia, now with low grade fevers. Sputum culture ordered, IV Abx added, ID on cosult. 03/17: This am ABG noted, hypoxia improved. Continue to wean FiO2 as tolerated. Still with low grade fevers, on IV Abx per ID. Still with periods of confusion despite sedation, seroquel increased. F/u CXR in the am 03/18: still very agitated especially when off sedation, with hypertension and tachycardia. Continue sedation for RASS -2, PRN antihypertensive for SPB greater than 160. This febrile this am, continue current IV abx per ID 03/19: Patient afebrile overnight, continue IV Abx per ID. ABG also improved this am, continue to wean FIO2 as tolerated. PRN antihypertensive for hypertension. 03/20: Hyperkalemia treated with Kayexalate, Good discontinued, vancomycin and cefepime stopped started Bactrim by ID. Steroid taper started. 03/21: BB started for hypertension, Seroquel increased for agitation and Librium started no acute events reported overnight. CCM made vent changes 03/22: Adjustment to anxiolytics, respiratory rate on ventilator per CCM. Patient noted to have bleeding hemorrhoids with clot, requested RN to remove bowel management system and will order Preparation H. 03/23: Given no confirmed DVT or PE (only superficial thrombus noted on Dopplers) therapeutic Lovenox changed to prophylactic Lovenox. Started on doxazosin to help with retention. Consulted surgery for tracheostomy and propofol discontinued. 03/24: Surgery consult completed, patient changed to prophylaxis anticoagulation, started on doxazosin yesterday with plans to remove Good catheter in 48 hours. Patient with slight hypokalemia today and given Kayexalate. No acute events reported overnight. 03/25: No acute events reported overnight. Patient remains on fentanyl drip and on CPAP trial this morning. 03/26: no acute events reported overnight. placed on CPAP this AM, remains on fent/librium. scheduled for trach/peg this week. 03/27: Hypoglycemic this am, will decreased lantus to Qhs. Plan for possible Trach and Peg by Gen Surg this am. Case management to arrange possible LTAC placement 03/28: KVNG overnight. Tolerating PST this am. Plan for trach and PEG tomorrow by Gen. Surgery, NPO after midnight. 03/29: No significant changes overnight. Plan for trach and Peg today. Case management to arrange possible LTAC placement 03/30. S/p Trach and PEG, no complications noted. High residual yesterday despite NPO status, reglan added X2 days. Per RN no residual this am, patient is tolerating TF. Continue to advance TF as tolerated. Norvasc added for hypertension. Pitting edema also appreciated, some diuretic might be beneficial, will d/w CCM. Continue daily PST as tolerated. 03/31: Patient remains on the vent still on fentanyl gtt with periods of agitation. PRN analgesia added, plan to start weaning off fentanyl gtt. Febrile this am, completed IV abx course. Will panculture for now, ID is also following. 2/5: Still febrile overnight, cultures result pending, continue IV ABx per ID. Failed PST this am. Continue daily PST and vent wean per [facility]. Case management to arrange possible placement. 04/02: KVNG overnight. Fevers improved overnight, continue to follow cultures data, IV ABx per ID. Continue daily PST and wean vent as per [facility]. 04/03: Given low procalcitonin, unchanged CXR and cultures with no growth cefepime was discontinued by ID. LTAC evaluation ongoing. No acute events reported overnight. 04/04: IV Lasix stopped today, Seroquel taper started, fentanyl drip on hold and steroids stopped. Pressure support trial again today. 04/05: Patient had to be restarted on fentanyl drip therefore Seroquel was increased back to 250 twice daily and he was started on scheduled narcotics and efforts to wean fentanyl drip. Doxazosin was increased to twice daily as patient still had retention issues on doxazosin once a day. Patient was denied LTAC placement. CPAP trial today. 04/06: Right upper extremity ultrasound obtained due to edema which showed DVT. Patient started on heparin drip. Overnight patient had hypoxia, tachypnea, tachycardia, hypotension and FiO2 was increased to 100%. RT titrating as tolerated. Plan was to start T-piece trials today. Patient has been denied LTAC placement. 04/07: BLE dopplar, continue lasix per [facility], CXR in AM. Increase in fio2 overnight d/t desaturation. Wean FiO2 as tolerated. 04/08: Patient remains on 65% FiO2, s/p Lasix for 3 doses, hyperkalemia noted today and medically treated. [facility] plans to consult heme/onc once FiO2 decreased. Remains on heparin gtt 04/09: No acute events reported overnight, possible heme-onc consult on Saturday or Saturday regarding upper extremity DVT, wean FiO2 as tolerated. Repeat CT head on Monday 04/10: Patient mentation is unchanged, repeat CT head today. Remains on heparin gtt per protocol. Continue daily PST as tolerated. 04/11: Increased work of breathing and high RR overnight, vent FiO2 increased to 55%. Resolved this am, patient is tolerating PST, no acute distress noted. Wean Fio2 as tolerated for SPO2 above 92%, Follow up CXR and ABG in the am. Antihypertensive regimen adjusted for better BP control. 2/16: Patient with coarse lungs and increased secretion today. This am CXR noted with worsen infiltrate, 40 of Lasix given, repeat CXR in the am. Patient remains afebrile, complete IV Abx course, VSS. Transitioned to PO Eliquis overnight, continue to keep patient net negative for better lung compliance. Continue daily PST as tolerated. 04/13: Patient is off sedation this am. Remains unresponsive. Librium D/C and Seroquel was adjusted to Qhs, PRN analgesia for pain management. Patient responded well to IV lasix, this am CXR with some improvement, additional IV lasix ordered again today. high CO2 also noted from this am, ABG ordered. Patient is tolerating PST this am, SPO2 remains above 95%. Continue daily PST plan to get patient off the vent for possible SNF placemement 04/14: Patient mentation is unchanged despite reducing sedative agents. Will hold all scheduled sedatives agents for now, PRN analgesics for pain management and vent synchrony. Patient spike a temp this am, orders placed for cultures, IV abx per ID. Additional lasix today, F/u CXR in the am. Patient is tolerating PST this am. 04/15: Remains febrile overnight. Culture data pending, back on IV Abx per ID. Gentle fluid management with IV lasix. Keep patient at a net negative balance. Continue daily PST as tolerated. 04/16: Open eyes spontaneously this am, but still not following commands. MRI brain ordered. Continue to avoid any sedative agents. Patient continue to respond very well to IV diuretic, continue gentle diurese X3days as tolerated. Continue daily PST as tolerated. Plan is get patient off the vent for possible SNF placement. Patient remains febrile this am, now cefepine and Vanc, continue IV abx per ID. 04/17: We will repeat procalcitonin per ID, MRI brain pending, SNF placement pending, [facility] plans to start T-piece trials in the morning and will discontinue Good catheter again. 04/18: Overnight patient to be straight cath x2 but did eventually have spontaneous urine output today and Good catheter was not replaced, patient had MRI brain today and was started on T-piece trials. He received Versed for sedation for MRI brain. 04/19: Good catheter was not replaced overnight patient is still voiding, placed on T-piece today, scopolamine and Robinul restarted. 04/20: Patient T-piece trial again today, will decrease bowel regimen in a.m. for entering T-piece for 24 hours obtain gas in the a.m. Cefazolin increased 04/21: Patient remained on trach collar throughout the day, will be transitioned to IMCU. Good catheter was replaced overnight due to retention. Hospitalist Physical - Constitutional Vitals: Temp Pulse Resp BP Pulse Ox 99.8 F H 95 H 35 H 129/73 100 04/21/21 16:00 04/21/21 16:00 04/21/21 16:00 04/21/21 16:00 04/21/21 16:00 General appearance: Present: no acute distress, well-nourished, obese, other (Unresponsive) - EENT Eyes: Present: PERRL, EOM intact ENT: hearing intact, clear oral mucosa, dentition normal - Neck Neck: Present: normal ROM - Respiratory Respiratory effort: normal Respiratory: bilateral: CTA, diminished - Cardiovascular Rhythm: regular Heart Sounds: Present: S1 & S2. Absent: systolic murmur, diastolic murmur - Extremities Extremities: no ischemia, pulses intact, pulses symmetrical, normal temperature Peripheral Pulses: within normal limits - Abdominal General gastrointestinal: soft, non-tender, non-distended, normal bowel sounds - Integumentary Integumentary: Present: warm, dry - Psychiatric Psychiatric: cooperative - Neurologic Neurologic: CNII-XII intact, no focal deficits, moves all extremities - Allied Health Allied health notes reviewed: nursing, PT, OT, RT, social work Results - Labs CBC & Chem 7: 04/21/21 12:11 04/21/21 11:20 Labs: Laboratory Last Values WBC 14.5 K/mm3 (4.5-11.0) H 04/21/21 12:11 RBC 3.08 M/mm3 (3.65-5.03) L 04/21/21 12:11 Hgb 9.3 gm/dl (11.8-15.2) L 04/21/21 12:11 Hct 28.2 % (35.5-45.6) L 04/21/21 12:11 MCV 92 fl (84-94) 04/21/21 12:11 MCH 30 pg (28-32) 04/21/21 12:11 MCHC 33 % (32-34) 04/21/21 12:11 RDW 16.5 % (13.2-15.2) H 04/21/21 12:11 Plt Count 410 K/mm3 (140-440) 04/21/21 12:11 Lymph % (Auto) 7.6 % (13.4-35.0) L 03/31/21 13:30 [place] % (Auto) 9.5 % (0.0-7.3) H 03/31/21 13:30 Eos % (Auto) 4.1 % (0.0-4.3) 03/31/21 13:30 Baso % (Auto) 0.5 % (0.0-1.8) 03/31/21 13:30 Lymph # (Auto) 0.6 K/mm3 (1.2-5.4) L 03/31/21 13:30 [place] # (Auto) 0.7 K/mm3 (0.0-0.8) 03/31/21 13:30 Eos # (Auto) 0.3 K/mm3 (0.0-0.4) 03/31/21 13:30 Baso # (Auto) 0.0 K/mm3 (0.0-0.1) 03/31/21 13:30 Add Manual Diff Complete 04/11/21 06:47 Total Counted 100 04/11/21 06:47 Seg Neutrophils % 78.3 % (40.0-70.0) H 03/31/21 13:30 Seg Neuts % (Manual) 76.0 % (40.0-70.0) H 04/11/21 06:47 Band Neutrophils % 2.0 % 04/11/21 06:47 Lymphocytes % (Manual) 10.0 % (13.4-35.0) L 04/11/21 06:47 Reactive Lymphs % (Man) 0 % 04/11/21 06:47 Monocytes % (Manual) 7.0 % (0.0-7.3) 04/11/21 06:47 Eosinophils % (Manual) 4.0 % (0.0-4.3) 04/11/21 06:47 Basophils % (Manual) 0 % (0.0-1.8) 04/11/21 06:47 Metamyelocytes % 1.0 % 04/11/21 06:47 Myelocytes % 0 % 04/11/21 06:47 Promyelocytes % 0 % 04/11/21 06:47 Blast Cells % 0 % 04/11/21 06:47 Nucleated RBC % Not Reportable 04/11/21 06:47 Seg Neutrophils # 5.8 K/mm3 (1.8-7.7) 03/31/21 13:30 Seg Neutrophils # Man 8.3 K/mm3 (1.8-7.7) H 04/11/21 06:47 Band Neutrophils # 0.2 K/mm3 04/11/21 06:47 Lymphocytes # (Manual) 1.1 K/mm3 (1.2-5.4) L 04/11/21 06:47 Abs React Lymphs (Man) 0.0 K/mm3 04/11/21 06:47 Monocytes # (Manual) 0.8 K/mm3 (0.0-0.8) 04/11/21 06:47 Eosinophils # (Manual) 0.4 K/mm3 (0.0-0.4) 04/11/21 06:47 Basophils # (Manual) 0.0 K/mm3 (0.0-0.1) 04/11/21 06:47 Metamyelocytes # 0.1 K/mm3 04/11/21 06:47 Myelocytes # 0.0 K/mm3 04/11/21 06:47 Promyelocytes # 0.0 K/mm3 04/11/21 06:47 Blast Cells # 0.0 K/mm3 04/11/21 06:47 WBC Morphology Not Reportable 04/11/21 06:47 Hypersegmented Neuts Not Reportable 04/11/21 06:47 Hyposegmented Neuts Not Reportable 04/11/21 06:47 Hypogranular Neuts Not Reportable 04/11/21 06:47 Smudge Cells Not Reportable 04/11/21 06:47 Toxic Granulation 1+ 04/11/21 06:47 Toxic Vacuolation Not Reportable 04/11/21 06:47 Dohle Bodies Not Reportable 04/11/21 06:47 Pelger-Huet Anomaly Not Reportable 04/11/21 06:47 Mely Rods Not Reportable 04/11/21 06:47 Platelet Estimate Consistent w auto 04/11/21 06:47 Clumped Platelets Not Reportable 04/11/21 06:47 Plt Clumps, EDTA Not Reportable 04/11/21 06:47 Large Platelets Not Reportable 04/11/21 06:47 Giant Platelets Not Reportable 04/11/21 06:47 Platelet Satelliting Not Reportable 04/11/21 06:47 Plt Morphology Comment Not Reportable 04/11/21 06:47 RBC Morphology Not Reportable 04/11/21 06:47 Dimorphic RBCs Not Reportable 04/11/21 06:47 Polychromasia Not Reportable 04/11/21 06:47 Hypochromasia Not Reportable 04/11/21 06:47 Poikilocytosis Not Reportable 04/11/21 06:47 Anisocytosis 1+ 04/11/21 06:47 Microcytosis Not Reportable 04/11/21 06:47 Macrocytosis Not Reportable 04/11/21 06:47 Spherocytes Not Reportable 04/11/21 06:47 Pappenheimer Bodies Not Reportable 04/11/21 06:47 Sickle Cells Not Reportable 04/11/21 06:47 Target Cells Not Reportable 04/11/21 06:47 Tear Drop Cells Not Reportable 04/11/21 06:47 Ovalocytes Not Reportable 04/11/21 06:47 Helmet Cells Not Reportable 04/11/21 06:47 [place] Bodies Not Reportable 04/11/21 06:47 [place] Rings Not Reportable 04/11/21 06:47 Hector Cells Not Reportable 04/11/21 06:47 Bite Cells Not Reportable 04/11/21 06:47 Crenated Cell Not Reportable 04/11/21 06:47 Elliptocytes Not Reportable 04/11/21 06:47 Acanthocytes (Spur) Not Reportable 04/11/21 06:47 Rouleaux Not Reportable 04/11/21 06:47 Hemoglobin C Crystals Not Reportable 04/11/21 06:47 Schistocytes Not Reportable 04/11/21 06:47 Malaria parasites Not Reportable 04/11/21 06:47 [place] Bodies Not Reportable 04/11/21 06:47 Hem Pathologist Commnt No 04/11/21 06:47 PT 13.4 Sec. (12.2-14.9) 04/11/21 18:17 INR 0.92 (0.87-1.13) 04/11/21 18:17 APTT 61.1 Sec. (24.2-36.6) H* 04/11/21 18:17 D-Dimer 1359.12 ng/mlDDU (0-234) H 03/17/21 04:40 Heparin Anti-Xa Level 1.03 U.I./ml (0.3-0.7) H 04/12/21 05:11 ABG pH 7.503 (7.320-7.450) H 04/21/21 11:37 POC ABG pCO2 43.0 mmHg (32.0-48.0) 04/21/21 11:37 ABG pCO2 50.9 mm Hg 04/18/21 11:30 POC ABG pO2 92.3 mmHg (83-108) 04/21/21 11:37 ABG pO2 108.9 mm Hg (80.0-90.0) H 04/18/21 11:30 POC ABG HCO3 33.0 04/21/21 11:37 ABG HCO3 36.2 mmol/L (20.0-26.0) H 04/18/21 11:30 ABG O2 Saturation 98.2 (0-100) 04/21/21 11:37 ABG O2 Content 12.1 (0.0-44) 04/18/21 11:30 POC ABG Base Excess 9.0 04/21/21 11:37 ABG Base Excess 11.2 mmol/L (-2.0-3.0) H 04/18/21 11:30 ABG Hemoglobin 10.8 (12.0-17.5) L 04/21/21 11:37 ABG Oxyhemoglobin 97.8 (94-98) 04/21/21 11:37 ABG Carboxyhemoglobin 1.7 % (0.0-5.0) 04/18/21 11:30 ABG Methemoglobin 0.3 (0.0-1.5) 04/21/21 11:37 ABG Sodium 134.2 mmol/L (136.0-145.0) L 03/12/21 21:54 ABG Potassium 4.9 mmol/L (3.40-4.50) H 03/12/21 21:54 ABG Chloride 99.0 mmol/L (98-107) 03/12/21 21:54 ABG Glucose 306 mg/dL (65-95) H 03/12/21 21:54 Oxyhemoglobin 95.9 % (95.0-99.0) 04/18/21 11:30 Carboxyhemoglobin 0.1 (0.5-1.5) L 04/21/21 11:37 FiO2 40 % 04/18/21 11:30 FiO2 % 35.0 04/21/21 11:37 Sodium 137 mmol/L (137-145) 04/21/21 11:20 Potassium 4.0 mmol/L (3.6-5.0) 04/21/21 11:20 Chloride 100.5 mmol/L (98-107) 04/21/21 11:20 Carbon Dioxide 28 mmol/L (22-30) 04/21/21 11:20 Anion Gap 13 mmol/L 04/21/21 11:20 BUN 18 mg/dL (9-20) 04/21/21 11:20 Creatinine 0.3 mg/dL (0.8-1.3) L 04/21/21 11:20 Estimated GFR > 60 ml/min 04/21/21 11:20 BUN/Creatinine Ratio 60 % 04/21/21 11:20 Glucose 174 mg/dL (75-100) H 04/21/21 11:20 POC Glucose 154 mg/dL (70-105) H 04/21/21 11:48 Lactic Acid 1.90 mmol/L (0.7-2.0) 03/08/21 23:51 Calcium 9.0 mg/dL (8.4-10.2) 04/21/21 11:20 Phosphorus 3.60 mg/dL (2.5-4.5) 04/17/21 04:25 Magnesium 2.30 mg/dL (1.7-2.3) 04/19/21 04:26 Ferritin 976.4 ng/mL (30.0-300.0) H 03/15/21 04:00 Total Bilirubin 0.20 mg/dL (0.1-1.2) 03/12/21 08:03 AST 10 units/L (5-40) 03/12/21 08:03 ALT 16 units/L (7-56) 03/12/21 08:03 Alkaline Phosphatase 77 units/L (35-129) 03/12/21 08:03 Lactate Dehydrogenase 630 units/L (91-180) H 03/15/21 06:06 C-Reactive Protein 0.40 mg/dL (0.00-1.30) 03/17/21 04:40 NT-Pro-B Natriuret Pep 1053 pg/mL (0-900) H 03/08/21 20:24 Total Protein 6.0 g/dL (6.3-8.2) L 03/12/21 08:03 Albumin 2.9 g/dL (3.9-5) L 03/12/21 08:03 Albumin/Globulin Ratio 0.9 % 03/12/21 08:03 Triglycerides 305 mg/dL (2-149) H 03/22/21 07:26 Procalcitonin 0.19 ng/mL (<0.15) 04/18/21 04:20 Arterial Blood Glucose 306 mg/dL (65-95) H 03/12/21 21:54 Arterial Blood Ionized Calcium 5.0 mg/dL (4.6-5.3) 03/12/21 21:54 Urine Color Yellow (Yellow) 04/14/21 Unknown Urine Turbidity Clear (Clear) 04/14/21 Unknown Urine pH 8.0 (5.0-7.0) H 04/14/21 Unknown Ur Specific [place] 1.009 (1.003-1.030) 04/14/21 Unknown Urine Protein <15 mg/dl mg/dL (Negative) 04/14/21 Unknown Urine Glucose (UA) Neg mg/dL (Negative) 04/14/21 Unknown Urine Ketones Neg mg/dL (Negative) 04/14/21 Unknown Urine Blood Neg (Negative) 04/14/21 Unknown Urine Nitrite Neg (Negative) 04/14/21 Unknown Urine Bilirubin Neg (Negative) 04/14/21 Unknown Urine Urobilinogen 2.0 mg/dL (<2.0) 04/14/21 Unknown Ur Leukocyte Esterase Neg (Negative) 04/14/21 Unknown Urine WBC (Auto) < 1.0 /HPF (0.0-6.0) 04/14/21 Unknown Urine RBC (Auto) < 1.0 /HPF (0.0-6.0) 04/14/21 Unknown Urine Bacteria (Auto) 1+ /HPF (Negative) 03/09/21 04:10 Urine Mucus Few /HPF 03/09/21 04:10 Vancomycin Trough 16.8 ug/mL (5.0-20.0) 04/16/21 14:30 Coronavirus (PCR) Positive (Negative) A 03/09/21 08:00 Miscellaneous Test Flexitest 1 03/16/21 13:14 Good/IV: Voiding Method Condom Catheter Active Medications - Current Medications Current Medications: Generic Name Dose Route Start Last Admin Trade Name Freq PRN Reason Stop Dose Admin Acetaminophen 650 mg 03/09/21 01:26 04/18/21 00:48 Acetaminophen 325 Mg Tab PO 650 mg Q4H PRN Administration Pain MILD(1-3)/Fever >100.5/RAYO Albuterol 2.5 mg 03/09/21 01:26 03/18/21 21:06 Albuterol 2.5 Mg/3 Ml Nebu IH 2.5 mg Q4HRT PRN Administration Shortness Of Breath Amlodipine Besylate 10 mg 04/11/21 10:00 04/21/21 09:06 Amlodipine 5 Mg Tab PO 10 mg QDAY BLANCA Administration Apixaban 5 mg 04/18/21 22:00 04/21/21 09:06 Apixaban 5 Mg Tab PO 5 mg Q12HR BLANCA Administration Protocol Arformoterol Tartrate 15 mcg 03/11/21 20:00 04/21/21 08:27 Arformoterol 15 Mcg/2 Ml Nebu IH 15 mcg Q12HRT BLANCA Administration Bisacodyl 10 mg 03/26/21 13:43 03/26/21 13:51 Bisacodyl 10 Mg Rect Supp OH 10 mg QDAY PRN Administration Constipation Budesonide 0.5 mg 04/06/21 20:00 04/21/21 08:27 Budesonide 0.5 Mg/2 Ml Nebu IH 0.5 mg Q12HRT BLANCA Administration Dextrose 0 ml 03/20/21 10:52 Dextrose 10% *Hypoglycemia IV PRN PRN Hypoglycemia Doxazosin Mesylate 1 mg 04/05/21 22:00 04/21/21 09:06 Doxazosin 1 Mg Tab PO 1 mg BID BLANCA Administration Famotidine 20 mg 03/12/21 22:00 04/21/21 09:06 Famotidine 20 Mg Tab FEEDTUBE 20 mg BID BLANCA Administration Fentanyl 50 mcg 04/14/21 11:00 04/14/21 21:37 Fentanyl 100 Mcg/2 Ml Inj IV 50 mcg Q2HR PRN Administration COPT greater than 3 Furosemide 40 mg 04/20/21 15:00 04/21/21 09:07 Furosemide 40 Mg/4 Ml Inj IV 04/23/21 14:59 40 mg QDAY BLANCA Administration Glycopyrrolate 1 mg 04/19/21 14:00 04/21/21 13:49 Glycopyrrolate 1 Mg Tab PO 1 mg TID BLANCA Administration Hydralazine HCl 50 mg 03/23/21 14:26 04/21/21 13:49 Hydralazine 25 Mg Tab PO 50 mg Q8HR BLANCA Administration Cefazolin Sodium 3 gm/ Sodium 100 mls @ 100 mls/30 min 04/20/21 14:00 04/21/21 13:50 Chloride IV 100 mls/30 min Q8HR BLANCA Administration Protocol Insulin Glargine 18 units 04/07/21 22:00 04/20/21 21:04 Insulin Glargine 100 Units/Ml SUB-Q 18 units QHS BLANCA Administration Insulin Human Lispro 0 unit 03/11/21 18:00 04/21/21 12:40 Insulin Lispro 100 Unit/Ml SUB-Q 3 unit Q6HR BLANCA Administration Protocol Metoprolol Tartrate 12.5 mg 03/21/21 22:00 04/21/21 09:05 Metoprolol Tartrate 25 Mg Tab PO 12.5 mg BID BLANCA Administration Ondansetron HCl 4 mg 03/09/21 01:26 04/13/21 16:17 Ondansetron 4 Mg/2 Ml Inj IV 4 mg Q8H PRN Administration Nausea And Vomiting Oxycodone HCl 5 mg 04/13/21 12:34 04/20/21 12:47 Oxycodone 5 Mg Tab PO 5 mg Q6HR PRN Administration Pain, Moderate (4-6) Phenyleph/Shark Oil/Min Oil/Petrol 1 applic 03/22/21 17:35 04/06/21 04:04 Pe/Mo/Pet,Wh 10 Applic/28 Gm Tube OH 1 applic Q6HR PRN Administration Hemorrhoids Polyethylene Glycol 17 gm 04/02/21 10:00 04/21/21 09:07 Polyethylene Glycol 3350 17 Gm Powder FEEDTUBE 17 gm QDAY BLANCA Administration Scopolamine 1 each 04/19/21 13:00 04/19/21 13:41 Scopolamine Transdermal Patch 72 Hr TD 1 each Q3D BLANCA Administration Sodium Chloride 10 ml 03/09/21 10:00 04/21/21 09:07 Sodium Chloride 0.9% 10 Ml Flush Syringe IV 10 ml BID BLANCA Administration Sodium Chloride 10 ml 03/09/21 01:26 04/10/21 21:07 Sodium Chloride 0.9% 10 Ml Flush Syringe IV 10 ml PRN PRN Administration LINE FLUSH Nutrition/Malnutrition Assess - Dietary Evaluation Nutrition/Malnutrition Findings: Nutrition Notes Start: 03/09/21 08:49 Freq: Status: Active Protocol: Document 04/21/21 14:27 BRIAN (Rec: 04/21/21 14:29 [facility] [id number]) Nutrition Notes Initial or Follow up Reassessment Current Diagnosis Diabetes,Sepsis,Hypertension, Respiratory Failure Other Pertinent Diagnosis COVID-19, Bilateral Pneumonia. Current Diet TF-Glucerna 1.2 at 70 ml/hr Labs/Tests reviewed Pertinent Medications Lasix Height 5 ft 11 in Weight 122.4 kg [place] Body Weight (kg) 78.18 BMI 37.6 Weight Status Obese Subjective/Other Information Pt tolerating T-piece trials for past two days. Per RN, will move to [facility]. Pt continues to tolerate TF at goal rate. Percent of energy/protein needs met: 82% energy 78% pro Burn Absent Trauma Absent #1 Nutrition Diagnosis Inadequate oral intake Diagnosis Progress(for reassessment Continues documentation) Is patient on ventilator? No Is Patient Ambulatory and/or Out of Bed No REE-([facility]-confined to bed) [phone] Calculation Used for Recommendations 70-80% energy needs Additional Notes Energy needs: 0620-2476 kcal/ day Pro needs 1.3g/kg adjBW: 130g/ day Fluid needs 1ml/kcal Nutrition Intervention Nutrition Support: Continue Glucerna 1.2 at 70ml/ hr with 110ml water flush q4h. Kcal 2,016 Protein (gm) 101 Carbohydrates (gm) 192 Fat (gm) 101 Fluid (mL) 1,352 Fiber (gm) 27 Goal #1 TF tolerance Goal #2 TF to meet at least 75% energy and pro needs Follow-Up By: 04/28/21 Additional Comments F/U: stable TF, wt, resp status <ARABELLA CASTILLO - Last Filed: 04/21/21 20:33> Assessment and Plan Assessment and plan: I saw and evaluated the patient. I agree with the findings and the plan of care as documented in the Nurse Practitioner's~note, with the following corrections and additions. Hospitalist Physical - Constitutional Vitals: Temp Pulse Resp BP Pulse Ox 99.8 F H 94 H 15 131/78 100 04/21/21 16:00 04/21/21 20:01 04/21/21 20:01 04/21/21 20:01 04/21/21 20:01 Results - Labs CBC & Chem 7: 04/21/21 12:11 04/21/21 11:20 Labs: Laboratory Last Values WBC 14.5 K/mm3 (4.5-11.0) H 04/21/21 12:11 RBC 3.08 M/mm3 (3.65-5.03) L 04/21/21 12:11 Hgb 9.3 gm/dl (11.8-15.2) L 04/21/21 12:11 Hct 28.2 % (35.5-45.6) L 04/21/21 12:11 MCV 92 fl (84-94) 04/21/21 12:11 MCH 30 pg (28-32) 04/21/21 12:11 MCHC 33 % (32-34) 04/21/21 12:11 RDW 16.5 % (13.2-15.2) H 04/21/21 12:11 Plt Count 410 K/mm3 (140-440) 04/21/21 12:11 Lymph % (Auto) 7.6 % (13.4-35.0) L 03/31/21 13:30 [place] % (Auto) 9.5 % (0.0-7.3) H 03/31/21 13:30 Eos % (Auto) 4.1 % (0.0-4.3) 03/31/21 13:30 Baso % (Auto) 0.5 % (0.0-1.8) 03/31/21 13:30 Lymph # (Auto) 0.6 K/mm3 (1.2-5.4) L 03/31/21 13:30 [place] # (Auto) 0.7 K/mm3 (0.0-0.8) 03/31/21 13:30 Eos # (Auto) 0.3 K/mm3 (0.0-0.4) 03/31/21 13:30 Baso # (Auto) 0.0 K/mm3 (0.0-0.1) 03/31/21 13:30 Add Manual Diff Complete 04/11/21 06:47 Total Counted 100 04/11/21 06:47 Seg Neutrophils % 78.3 % (40.0-70.0) H 03/31/21 13:30 Seg Neuts % (Manual) 76.0 % (40.0-70.0) H 04/11/21 06:47 Band Neutrophils % 2.0 % 04/11/21 06:47 Lymphocytes % (Manual) 10.0 % (13.4-35.0) L 04/11/21 06:47 Reactive Lymphs % (Man) 0 % 04/11/21 06:47 Monocytes % (Manual) 7.0 % (0.0-7.3) 04/11/21 06:47 Eosinophils % (Manual) 4.0 % (0.0-4.3) 04/11/21 06:47 Basophils % (Manual) 0 % (0.0-1.8) 04/11/21 06:47 Metamyelocytes % 1.0 % 04/11/21 06:47 Myelocytes % 0 % 04/11/21 06:47 Promyelocytes % 0 % 04/11/21 06:47 Blast Cells % 0 % 04/11/21 06:47 Nucleated RBC % Not Reportable 04/11/21 06:47 Seg Neutrophils # 5.8 K/mm3 (1.8-7.7) 03/31/21 13:30 Seg Neutrophils # Man 8.3 K/mm3 (1.8-7.7) H 04/11/21 06:47 Band Neutrophils # 0.2 K/mm3 04/11/21 06:47 Lymphocytes # (Manual) 1.1 K/mm3 (1.2-5.4) L 04/11/21 06:47 Abs React Lymphs (Man) 0.0 K/mm3 04/11/21 06:47 Monocytes # (Manual) 0.8 K/mm3 (0.0-0.8) 04/11/21 06:47 Eosinophils # (Manual) 0.4 K/mm3 (0.0-0.4) 04/11/21 06:47 Basophils # (Manual) 0.0 K/mm3 (0.0-0.1) 04/11/21 06:47 Metamyelocytes # 0.1 K/mm3 04/11/21 06:47 Myelocytes # 0.0 K/mm3 04/11/21 06:47 Promyelocytes # 0.0 K/mm3 04/11/21 06:47 Blast Cells # 0.0 K/mm3 04/11/21 06:47 WBC Morphology Not Reportable 04/11/21 06:47 Hypersegmented Neuts Not Reportable 04/11/21 06:47 Hyposegmented Neuts Not Reportable 04/11/21 06:47 Hypogranular Neuts Not Reportable 04/11/21 06:47 Smudge Cells Not Reportable 04/11/21 06:47 Toxic Granulation 1+ 04/11/21 06:47 Toxic Vacuolation Not Reportable 04/11/21 06:47 Dohle Bodies Not Reportable 04/11/21 06:47 Pelger-Huet Anomaly Not Reportable 04/11/21 06:47 Mely Rods Not Reportable 04/11/21 06:47 Platelet Estimate Consistent w auto 04/11/21 06:47 Clumped Platelets Not Reportable 04/11/21 06:47 Plt Clumps, EDTA Not Reportable 04/11/21 06:47 Large Platelets Not Reportable 04/11/21 06:47 Giant Platelets Not Reportable 04/11/21 06:47 Platelet Satelliting Not Reportable 04/11/21 06:47 Plt Morphology Comment Not Reportable 04/11/21 06:47 RBC Morphology Not Reportable 04/11/21 06:47 Dimorphic RBCs Not Reportable 04/11/21 06:47 Polychromasia Not Reportable 04/11/21 06:47 Hypochromasia Not Reportable 04/11/21 06:47 Poikilocytosis Not Reportable 04/11/21 06:47 Anisocytosis 1+ 04/11/21 06:47 Microcytosis Not Reportable 04/11/21 06:47 Macrocytosis Not Reportable 04/11/21 06:47 Spherocytes Not Reportable 04/11/21 06:47 Pappenheimer Bodies Not Reportable 04/11/21 06:47 Sickle Cells Not Reportable 04/11/21 06:47 Target Cells Not Reportable 04/11/21 06:47 Tear Drop Cells Not Reportable 04/11/21 06:47 Ovalocytes Not Reportable 04/11/21 06:47 Helmet Cells Not Reportable 04/11/21 06:47 [place] Bodies Not Reportable 04/11/21 06:47 [place] Rings Not Reportable 04/11/21 06:47 Hector Cells Not Reportable 04/11/21 06:47 Bite Cells Not Reportable 04/11/21 06:47 Crenated Cell Not Reportable 04/11/21 06:47 Elliptocytes Not Reportable 04/11/21 06:47 Acanthocytes (Spur) Not Reportable 04/11/21 06:47 Rouleaux Not Reportable 04/11/21 06:47 Hemoglobin C Crystals Not Reportable 04/11/21 06:47 Schistocytes Not Reportable 04/11/21 06:47 Malaria parasites Not Reportable 04/11/21 06:47 [place] Bodies Not Reportable 04/11/21 06:47 Hem Pathologist Commnt No 04/11/21 06:47 PT 13.4 Sec. (12.2-14.9) 04/11/21 18:17 INR 0.92 (0.87-1.13) 04/11/21 18:17 APTT 61.1 Sec. (24.2-36.6) H* 04/11/21 18:17 D-Dimer 1359.12 ng/mlDDU (0-234) H 03/17/21 04:40 Heparin Anti-Xa Level 1.03 U.I./ml (0.3-0.7) H 04/12/21 05:11 ABG pH 7.503 (7.320-7.450) H 04/21/21 11:37 POC ABG pCO2 43.0 mmHg (32.0-48.0) 04/21/21 11:37 ABG pCO2 50.9 mm Hg 04/18/21 11:30 POC ABG pO2 92.3 mmHg (83-108) 04/21/21 11:37 ABG pO2 108.9 mm Hg (80.0-90.0) H 04/18/21 11:30 POC ABG HCO3 33.0 04/21/21 11:37 ABG HCO3 36.2 mmol/L (20.0-26.0) H 04/18/21 11:30 ABG O2 Saturation 98.2 (0-100) 04/21/21 11:37 ABG O2 Content 12.1 (0.0-44) 04/18/21 11:30 POC ABG Base Excess 9.0 04/21/21 11:37 ABG Base Excess 11.2 mmol/L (-2.0-3.0) H 04/18/21 11:30 ABG Hemoglobin 10.8 (12.0-17.5) L 04/21/21 11:37 ABG Oxyhemoglobin 97.8 (94-98) 04/21/21 11:37 ABG Carboxyhemoglobin 1.7 % (0.0-5.0) 04/18/21 11:30 ABG Methemoglobin 0.3 (0.0-1.5) 04/21/21 11:37 ABG Sodium 134.2 mmol/L (136.0-145.0) L 03/12/21 21:54 ABG Potassium 4.9 mmol/L (3.40-4.50) H 03/12/21 21:54 ABG Chloride 99.0 mmol/L (98-107) 03/12/21 21:54 ABG Glucose 306 mg/dL (65-95) H 03/12/21 21:54 Oxyhemoglobin 95.9 % (95.0-99.0) 04/18/21 11:30 Carboxyhemoglobin 0.1 (0.5-1.5) L 04/21/21 11:37 FiO2 40 % 04/18/21 11:30 FiO2 % 35.0 04/21/21 11:37 Sodium 137 mmol/L (137-145) 04/21/21 11:20 Potassium 4.0 mmol/L (3.6-5.0) 04/21/21 11:20 Chloride 100.5 mmol/L (98-107) 04/21/21 11:20 Carbon Dioxide 28 mmol/L (22-30) 04/21/21 11:20 Anion Gap 13 mmol/L 04/21/21 11:20 BUN 18 mg/dL (9-20) 04/21/21 11:20 Creatinine 0.3 mg/dL (0.8-1.3) L 04/21/21 11:20 Estimated GFR > 60 ml/min 04/21/21 11:20 BUN/Creatinine Ratio 60 % 04/21/21 11:20 Glucose 174 mg/dL (75-100) H 04/21/21 11:20 POC Glucose 138 mg/dL (70-105) H 04/21/21 17:56 Lactic Acid 1.90 mmol/L (0.7-2.0) 03/08/21 23:51 Calcium 9.0 mg/dL (8.4-10.2) 04/21/21 11:20 Phosphorus 3.60 mg/dL (2.5-4.5) 04/17/21 04:25 Magnesium 2.30 mg/dL (1.7-2.3) 04/19/21 04:26 Ferritin 976.4 ng/mL (30.0-300.0) H 03/15/21 04:00 Total Bilirubin 0.20 mg/dL (0.1-1.2) 03/12/21 08:03 AST 10 units/L (5-40) 03/12/21 08:03 ALT 16 units/L (7-56) 03/12/21 08:03 Alkaline Phosphatase 77 units/L (35-129) 03/12/21 08:03 Lactate Dehydrogenase 630 units/L (91-180) H 03/15/21 06:06 C-Reactive Protein 0.40 mg/dL (0.00-1.30) 03/17/21 04:40 NT-Pro-B Natriuret Pep 1053 pg/mL (0-900) H 03/08/21 20:24 Total Protein 6.0 g/dL (6.3-8.2) L 03/12/21 08:03 Albumin 2.9 g/dL (3.9-5) L 03/12/21 08:03 Albumin/Globulin Ratio 0.9 % 03/12/21 08:03 Triglycerides 305 mg/dL (2-149) H 03/22/21 07:26 Procalcitonin 0.19 ng/mL (<0.15) 04/18/21 04:20 Arterial Blood Glucose 306 mg/dL (65-95) H 03/12/21 21:54 Arterial Blood Ionized Calcium 5.0 mg/dL (4.6-5.3) 03/12/21 21:54 Urine Color Yellow (Yellow) 04/14/21 Unknown Urine Turbidity Clear (Clear) 04/14/21 Unknown Urine pH 8.0 (5.0-7.0) H 04/14/21 Unknown Ur Specific [place] 1.009 (1.003-1.030) 04/14/21 Unknown Urine Protein <15 mg/dl mg/dL (Negative) 04/14/21 Unknown Urine Glucose (UA) Neg mg/dL (Negative) 04/14/21 Unknown Urine Ketones Neg mg/dL (Negative) 04/14/21 Unknown Urine Blood Neg (Negative) 04/14/21 Unknown Urine Nitrite Neg (Negative) 04/14/21 Unknown Urine Bilirubin Neg (Negative) 04/14/21 Unknown Urine Urobilinogen 2.0 mg/dL (<2.0) 04/14/21 Unknown Ur Leukocyte Esterase Neg (Negative) 04/14/21 Unknown Urine WBC (Auto) < 1.0 /HPF (0.0-6.0) 04/14/21 Unknown Urine RBC (Auto) < 1.0 /HPF (0.0-6.0) 04/14/21 Unknown Urine Bacteria (Auto) 1+ /HPF (Negative) 03/09/21 04:10 Urine Mucus Few /HPF 03/09/21 04:10 Vancomycin Trough 16.8 ug/mL (5.0-20.0) 04/16/21 14:30 Coronavirus (PCR) Positive (Negative) A 03/09/21 08:00 Miscellaneous Test Flexitest 1 03/16/21 13:14 Good/IV: Voiding Method Indwelling Catheter Active Medications - Current Medications Current Medications: Generic Name Dose Route Start Last Admin Trade Name Freq PRN Reason Stop Dose Admin Acetaminophen 650 mg 03/09/21 01:26 04/18/21 00:48 Acetaminophen 325 Mg Tab PO 650 mg Q4H PRN Administration Pain MILD(1-3)/Fever >100.5/RAYO Albuterol 2.5 mg 03/09/21 01:26 03/18/21 21:06 Albuterol 2.5 Mg/3 Ml Nebu IH 2.5 mg Q4HRT PRN Administration Shortness Of Breath Amlodipine Besylate 10 mg 04/11/21 10:00 04/21/21 09:06 Amlodipine 5 Mg Tab PO 10 mg QDAY BLANCA Administration Apixaban 5 mg 04/18/21 22:00 04/21/21 09:06 Apixaban 5 Mg Tab PO 5 mg Q12HR BLANCA Administration Protocol Arformoterol Tartrate 15 mcg 03/11/21 20:00 04/21/21 08:27 Arformoterol 15 Mcg/2 Ml Nebu IH 15 mcg Q12HRT BLANCA Administration Bisacodyl 10 mg 03/26/21 13:43 03/26/21 13:51 Bisacodyl 10 Mg Rect Supp OH 10 mg QDAY PRN Administration Constipation Budesonide 0.5 mg 04/06/21 20:00 04/21/21 08:27 Budesonide 0.5 Mg/2 Ml Nebu IH 0.5 mg Q12HRT BLANCA Administration Dextrose 0 ml 03/20/21 10:52 Dextrose 10% *Hypoglycemia IV PRN PRN Hypoglycemia Doxazosin Mesylate 1 mg 04/05/21 22:00 04/21/21 09:06 Doxazosin 1 Mg Tab PO 1 mg BID BLANCA Administration Famotidine 20 mg 03/12/21 22:00 04/21/21 09:06 Famotidine 20 Mg Tab FEEDTUBE 20 mg BID BLANCA Administration Fentanyl 50 mcg 04/14/21 11:00 04/14/21 21:37 Fentanyl 100 Mcg/2 Ml Inj IV 50 mcg Q2HR PRN Administration COPT greater than 3 Furosemide 40 mg 04/20/21 15:00 04/21/21 09:07 Furosemide 40 Mg/4 Ml Inj IV 04/23/21 14:59 40 mg QDAY BLANCA Administration Glycopyrrolate 1 mg 04/19/21 14:00 04/21/21 13:49 Glycopyrrolate 1 Mg Tab PO 1 mg TID BLANCA Administration Hydralazine HCl 50 mg 03/23/21 14:26 04/21/21 13:49 Hydralazine 25 Mg Tab PO 50 mg Q8HR BLANCA Administration Cefazolin Sodium 3 gm/ Sodium 100 mls @ 100 mls/30 min 04/20/21 14:00 04/21/21 13:50 Chloride IV 100 mls/30 min Q8HR BLANCA Administration Protocol Insulin Glargine 18 units 04/07/21 22:00 04/20/21 21:04 Insulin Glargine 100 Units/Ml SUB-Q 18 units QHS BLANCA Administration Insulin Human Lispro 0 unit 03/11/21 18:00 04/21/21 18:30 Insulin Lispro 100 Unit/Ml SUB-Q Not Given Q6HR [facility] Protocol Metoprolol Tartrate 12.5 mg 03/21/21 22:00 04/21/21 09:05 Metoprolol Tartrate 25 Mg Tab PO 12.5 mg BID BLANCA Administration Ondansetron HCl 4 mg 03/09/21 01:26 04/13/21 16:17 Ondansetron 4 Mg/2 Ml Inj IV 4 mg Q8H PRN Administration Nausea And Vomiting Oxycodone HCl 5 mg 04/13/21 12:34 04/20/21 12:47 Oxycodone 5 Mg Tab PO 5 mg Q6HR PRN Administration Pain, Moderate (4-6) Phenyleph/Shark Oil/Min Oil/Petrol 1 applic 03/22/21 17:35 04/06/21 04:04 Pe/Mo/Pet,Wh 10 Applic/28 Gm Tube [place] 1 applic Q6HR PRN Administration Hemorrhoids Polyethylene Glycol 17 gm 04/02/21 10:00 04/21/21 09:07 Polyethylene Glycol 3350 17 Gm Powder FEEDTUBE 17 gm QDAY BLANCA Administration Scopolamine 1 each 04/19/21 13:00 04/19/21 13:41 Scopolamine Transdermal Patch 72 Hr TD 1 each Q3D BLANCA Administration Sodium Chloride 10 ml 03/09/21 10:00 04/21/21 09:07 Sodium Chloride 0.9% 10 Ml Flush Syringe IV 10 ml BID BLANCA Administration Sodium Chloride 10 ml 03/09/21 01:26 04/10/21 21:07 Sodium Chloride 0.9% 10 Ml Flush Syringe IV 10 ml PRN PRN Administration LINE FLUSH Nutrition/Malnutrition Assess - Dietary Evaluation Nutrition/Malnutrition Findings: Nutrition Notes Start: 03/09/21 08:49 Freq: Status: Active Protocol: Document 04/21/21 14:27 BRIAN (Rec: 04/21/21 14:29 BRIAN [id number]) Nutrition Notes Initial or Follow up Reassessment Current Diagnosis Diabetes,Sepsis,Hypertension, Respiratory Failure Other Pertinent Diagnosis COVID-19, Bilateral Pneumonia. Current Diet TF-Glucerna 1.2 at 70 ml/hr Labs/Tests reviewed Pertinent Medications Lasix Height 5 ft 11 in Weight 122.4 kg [place] Body Weight (kg) 78.18 BMI 37.6 Weight Status Obese Subjective/Other Information Pt tolerating T-piece trials for past two days. Per RN, will move to [facility]. Pt continues to tolerate TF at goal rate. Percent of energy/protein needs met: 82% energy 78% pro Burn Absent Trauma Absent #1 Nutrition Diagnosis Inadequate oral intake Diagnosis Progress(for reassessment Continues documentation) Is patient on ventilator? No Is Patient Ambulatory and/or Out of Bed No REE-([facility]-confined to bed) 1348.661 Calculation Used for Recommendations 70-80% energy needs Additional Notes Energy needs: 5936-8512 kcal/ day Pro needs 1.3g/kg adjBW: 130g/ day Fluid needs 1ml/kcal Nutrition Intervention Nutrition Support: Continue Glucerna 1.2 at 70ml/ hr with 110ml water flush q4h. Kcal 2,016 Protein (gm) 101 Carbohydrates (gm) 192 Fat (gm) 101 Fluid (mL) 1,352 Fiber (gm) 27 Goal #1 TF tolerance Goal #2 TF to meet at least 75% energy and pro needs Follow-Up By: 04/28/21 Additional Comments F/U: stable TF, wt, resp status
[2021-04-21] MEDS: INSULIN GLARGINE 100 UNITS/ML SUB-Q SCH (23:30)
[2021-04-22] MEDS: INSULIN LISPRO 100 UNIT/ML SUB-Q SCH ×4 (00:56→18:25)
[2021-04-22 05:04] LABS: Hematocrit 29.3 % (35.5-45.6); Hemoglobin 9.5 gm/dl (11.8-15.2); Mean Corpuscular HGB Conc 32 % (32-34); Mean Corpuscular Volume 92 fl (84-94); Platelet Count 418 K/mm3 (140-440); Red Cell Distribution Width 16.6 % (13.2-15.2)
[2021-04-22 05:14] LABS: Blood Urea Nitrogen 15 mg/dL (9-20); Hemolysis Index 6
[2021-04-22 05:17] LABS: BUN/Creatinine Ratio 50
[2021-04-22] MEDS: hydrALAZINE 25 MG TAB PO SCH ×2 (05:37→13:01)
[2021-04-22] MEDS: ARFORMOTEROL 15 MCG/2 ML NEBU IH SCH ×2 (08:11→20:30)
[2021-04-22] MEDS: BUDESONIDE 0.5 MG/2 ML NEBU IH SCH ×2 (08:12→20:30)
[2021-04-22] MEDS: DOXAZOSIN 1 MG TAB PO SCH (09:48)
[2021-04-22] MEDS: FUROSEMIDE 40 MG/4 ML INJ IV SCH (09:49)
[2021-04-22] MEDS: APIXABAN 5 MG TAB PO SCH (09:49)
[2021-04-22] MEDS: FAMOTIDINE 20 MG TAB FEEDTUBE SCH (09:49)
[2021-04-22] MEDS: METOPROLOL TARTRATE 25 MG TAB PO SCH (09:49)
[2021-04-22] MEDS: amLODIPine 5 MG TAB PO SCH (09:49)
[2021-04-22] MEDS: SCOPOLAMINE TRANSDERMAL PATCH 72 HR TD SCH (09:49)
[2021-04-22] MEDS: POLYETHYLENE GLYCOL 3350 17 GM POWDER FEEDTUBE SCH (09:50)
[2021-04-22] MEDS: GLYCOPYRROLATE 1 MG TAB PO SCH ×2 (09:56→13:01)
--- NOTE | 2021-04-22 10:54 | Progress Note ---
Assessment and Plan Assessment and plan: This is a 61-year-old man with HTN and DM admitted with COVID-19 pneumonia, acute hypoxic respiratory failure, sepsis Neuro: Acute encephalopathy -s/p fentanyl gtt, Seroquel and Librium -Avoid delirium -Reorientation as needed -Maintain sleep-wake cycle -As needed analgesia -admit: CT head shows no acute intracranial abnormality -Neurology consulted, appreciate recommendations -04/10 CT head shows no focal mass, hemorrhage, hydrocephalus or acute large territorial infarct but shows significant sinus disease with significant opacification of the mastoids bilaterally and mild middle ear cavity disease suggested as well -MRI brain shows no gross evidence of acute or significant intracranial abnormality, exam limited by motion artifact, partial opacification of mastoid air cells bilaterally, more extensively on the right, no definite evidence of fluid within the middle ear cavity. -PT consulted, appreciate recommendations Cardiac: h/o Hypertension -Cardiology consulted, appreciate recommendations -Blood pressure monitoring per protocol -Echocardiogram shows a mildly dilated ascending aorta, normal LV systolic function, mild concentric LVH, LVEF 60 to 65% -Antihypertensive regimen: Hydralazine, metoprolol, amlodipine Respiratory: Acute hypoxic respiratory failure -CCM consulted, appreciate recommendations -Intubated on 03/10 with 7.50 ETT at 24 at the lips, s/p trach on 03/29 -T-piece -Pulmonary hygiene -SPO2 monitoring GI: Obesity, external hemorrhoids -24 hours +880 mL -PPI -NTR consulted for tube feedings -BR: miralax -As needed Preparation H : Urinary retention -Nephrology consulted, appreciate recommendations -Strict intake and output -Renally dose medications -Avoid nephrotoxic medications -Doxazosin increased to twice daily -Good catheter removed 04/17 and replaced 04/21 -Lasix -trend BMP ID: Severe sepsis (POA), COVID-19 pneumonia, stenotrophomonas maltophilia in tracheal aspirate, MSSA pneumonia -Infectious disease consulted, appreciate recommendations -S/p remdesivir for 5 days -S/p Actemra 03/10/2021 -f/u blood culture -Monitor WBC and temperature curve -s/p steroids -IV Cefepime started 04/15, increased d/t MO by ID -f/u procal in am -03/16 Fungitell and histoplasma negative Heme: Acute right upper extremity DVT , superficial thrombus in left gastrocnemius vein -Bilateral lower extremity ultrasound negative for DVT, superficial thrombus in left gastrocnemius vein -repeat BLE Doppler US show superficial thrombus -Repeat bilateral upper extremity ultrasound shows DVT in right upper extremity -heparin drip to eliquis PO -repeat BLE UE dopplar showed superficial thrombus within the gastrocnemius vein unchanged from previous study -CTA chest shows no gross pulm embolism -Trend CBC -SCDs to BLE while in bed -Transfuse hemoglobin less than 7 -Monitor for signs of bleeding Endo: h/o DM -Avoid hypoglycemia -SSI -Accu-Cheks q. 6 -Long-acting insulin, titrate as needed The high probability of a clinically significant, sudden or life threatening deterioration of the [multi] system(s) required my full and direct attention, intervention and personal management. The aggregate critical care time was [60] minutes. This time is in addition to time spent performing reported procedures but includes the following: [x] Data Review and interpretation [x] Patient assessment and monitoring of vital signs [x] Documentation [x] Medication orders and management Disposition Plan: transfer to [facility] Total Time Spent with Patient (Minutes): 60 History Interval history: This is a 61-year-old male with HTN and DM who presented to the emergency department on 03/09 with shortness of breath and hypoxia via EMS. Patient had ap parently been feeling ill for proxy 1 week prior to mentation. Upon EMS arrival patient SPO2 was in the low 70s and improved to upper 80slow 90s on nonrebreather and he was transported to [facility] in the emergency department patient was noted to be hypoxic and placed on a BiPAP with improvement to mentation and hypoxia. CXR showed bilateral patchy infiltrates. Lab work showed leukocytosis, elevated D-dimer, hyponatremia, hypochloremia and elevated COVID-19 markers with elevated BNP. CTA chest showed no pulmonary embolism. Patient was admitted to the hospitalist service as a COVID-19 PUI and started on antibiotics and Decadron with consult to infectious disease. 03/09: The patient was seen and evaluated today, and he was found to be hemodynamically stable. The patient is currently on BiPAP for possible COVID-19 pneumonia. He was started on Lovenox 1mg/kg for DVT ppx in the setting of d- dimer > 10,000. Infectious Disease was consulted. The patient is pending a TTE. 03/10: No acute events overnight, patient was intubated in the afternoon transferred to ICU 03/11: Patient started on Lantus, free water flushes increased, propofol drip resumed and oral antihypertensive added. 03/12: lantus increased, k at 5, will monitor. I updated his family and his stated that he is not vaccinated. He does have HTN and she will call the RN to update home medications. She did say he takes bystolic and amlopine. She inquired about ventilator and lab work. She had no further questions. 03/13: KVNG overnight. Patient remains hyperglycemic, basal insulin adjusted and increased to Q12hrs. Patient is overall net positive since admit X1 dose of IV lasix, repeat BMP this afternoon. 03/14: Failed SAT this am due to increase agitation, tachycardia and hypertension. Remains on propofol and fentanyl gtt. Hyperkalemia treated with PO kayaxalate. Patient responded to IV lasix yesterday additional dose again today for a net negative balance. Repeat BMP this afternoon. Insulin adjusted for hyperglycemia. 03/15: Remains encephalopathic, not following commansd. Orders placed for CT head/Brain and Neuro consulted. Rectal bleeding subsided, most likely due to hemorrhoids. H&H is stable will continue to monitor. Kayaxexalate for high K, repeat labs 4 to 6hrs post treatment. 03/16: Still agiated this am, CT head with no acute Abn. CXR and ABG noted- evolving pna and worsening hypoxia, now with low grade fevers. Sputum culture ordered, IV Abx added, ID on cosult. 03/17: This am ABG noted, hypoxia improved. Continue to wean FiO2 as tolerated. Still with low grade fevers, on IV Abx per ID. Still with periods of confusion despite sedation, seroquel increased. F/u CXR in the am 03/18: still very agitated especially when off sedation, with hypertension and tachycardia. Continue sedation for RASS -2, PRN antihypertensive for SPB greater than 160. This febrile this am, continue current IV abx per ID 03/19: Patient afebrile overnight, continue IV Abx per ID. ABG also improved this am, continue to wean FIO2 as tolerated. PRN antihypertensive for hypertension. 03/20: Hyperkalemia treated with Kayexalate, Good discontinued, vancomycin and cefepime stopped started Bactrim by ID. Steroid taper started. 03/21: BB started for hypertension, Seroquel increased for agitation and Librium started no acute events reported overnight. CCM made vent changes 03/22: Adjustment to anxiolytics, respiratory rate on ventilator per CCM. Patient noted to have bleeding hemorrhoids with clot, requested RN to remove bowel management system and will order Preparation H. 03/23: Given no confirmed DVT or PE (only superficial thrombus noted on Dopplers) therapeutic Lovenox changed to prophylactic Lovenox. Started on doxazosin to help with retention. Consulted surgery for tracheostomy and propofol discontinued. 03/24: Surgery consult completed, patient changed to prophylaxis anticoagulation, started on doxazosin yesterday with plans to remove Good catheter in 48 hours. Patient with slight hypokalemia today and given Kayexalate. No acute events reported overnight. 03/25: No acute events reported overnight. Patient remains on fentanyl drip and on CPAP trial this morning. 03/26: no acute events reported overnight. placed on CPAP this AM, remains on fent/librium. scheduled for trach/peg this week. 03/27: Hypoglycemic this am, will decreased lantus to Qhs. Plan for possible Trach and Peg by Gen Surg this am. Case management to arrange possible LTAC placement 03/28: KVNG overnight. Tolerating PST this am. Plan for trach and PEG tomorrow by Gen. Surgery, NPO after midnight. 03/29: No significant changes overnight. Plan for trach and Peg today. Case management to arrange possible LTAC placement 03/30. S/p Trach and PEG, no complications noted. High residual yesterday despite NPO status, reglan added X2 days. Per RN no residual this am, patient is tolerating TF. Continue to advance TF as tolerated. Norvasc added for hypertension. Pitting edema also appreciated, some diuretic might be beneficial, will d/w CCM. Continue daily PST as tolerated. 03/31: Patient remains on the vent still on fentanyl gtt with periods of agitation. PRN analgesia added, plan to start weaning off fentanyl gtt. Febrile this am, completed IV abx course. Will panculture for now, ID is also following. 04/01: Still febrile overnight, cultures result pending, continue IV ABx per ID. Failed PST this am. Continue daily PST and vent wean per CCM. Case management to arrange possible placement. 04/02: KVNG overnight. Fevers improved overnight, continue to follow cultures data, IV ABx per ID. Continue daily PST and wean vent as per [facility]. 04/03: Given low procalcitonin, unchanged CXR and cultures with no growth cefepime was discontinued by ID. LTAC evaluation ongoing. No acute events reported overnight. 04/04: IV Lasix stopped today, Seroquel taper started, fentanyl drip on hold and steroids stopped. Pressure support trial again today. 04/05: Patient had to be restarted on fentanyl drip therefore Seroquel was increased back to 250 twice daily and he was started on scheduled narcotics and efforts to wean fentanyl drip. Doxazosin was increased to twice daily as patient still had retention issues on doxazosin once a day. Patient was denied LTAC placement. CPAP trial today. 04/06: Right upper extremity ultrasound obtained due to edema which showed DVT. Patient started on heparin drip. Overnight patient had hypoxia, tachypnea, tachycardia, hypotension and FiO2 was increased to 100%. RT titrating as tolerated. Plan was to start T-piece trials today. Patient has been denied LTAC placement. 04/07: BLE dopplar, continue lasix per [facility], CXR in AM. Increase in fio2 overnight d/t desaturation. Wean FiO2 as tolerated. 04/08: Patient remains on 65% FiO2, s/p Lasix for 3 doses, hyperkalemia noted today and medically treated. [facility] plans to consult heme/onc once FiO2 decreased. Remains on heparin gtt 04/09: No acute events reported overnight, possible heme-onc consult on Saturday or Saturday regarding upper extremity DVT, wean FiO2 as tolerated. Repeat CT head on Monday 04/10: Patient mentation is unchanged, repeat CT head today. Remains on heparin gtt per protocol. Continue daily PST as tolerated. 04/11: Increased work of breathing and high RR overnight, vent FiO2 increased to 55%. Resolved this am, patient is tolerating PST, no acute distress noted. Wean Fio2 as tolerated for SPO2 above 92%, Follow up CXR and ABG in the am. Antihypertensive regimen adjusted for better BP control. 04/12: Patient with coarse lungs and increased secretion today. This am CXR noted with worsen infiltrate, 40 of Lasix given, repeat CXR in the am. Patient remains afebrile, complete IV Abx course, VSS. Transitioned to PO Eliquis overnight, continue to keep patient net negative for better lung compliance. Continue daily PST as tolerated. 04/13: Patient is off sedation this am. Remains unresponsive. Librium D/C and Seroquel was adjusted to Qhs, PRN analgesia for pain management. Patient responded well to IV lasix, this am CXR with some improvement, additional IV lasix ordered again today. high CO2 also noted from this am, ABG ordered. Patient is tolerating PST this am, SPO2 remains above 95%. Continue daily PST plan to get patient off the vent for possible SNF placemement 04/14: Patient mentation is unchanged despite reducing sedative agents. Will hold all scheduled sedatives agents for now, PRN analgesics for pain management and vent synchrony. Patient spike a temp this am, orders placed for cultures, IV abx per ID. Additional lasix today, F/u CXR in the am. Patient is tolerating PST this am. 04/15: Remains febrile overnight. Culture data pending, back on IV Abx per ID. Gentle fluid management with IV lasix. Keep patient at a net negative balance. Continue daily PST as tolerated. 04/16: Open eyes spontaneously this am, but still not following commands. MRI brain ordered. Continue to avoid any sedative agents. Patient continue to respond very well to IV diuretic, continue gentle diurese X3days as tolerated. Continue daily PST as tolerated. Plan is get patient off the vent for possible SNF placement. Patient remains febrile this am, now cefepine and Vanc, continue IV abx per ID. 04/17: We will repeat procalcitonin per ID, MRI brain pending, SNF placement pending, [facility] plans to start T-piece trials in the morning and will discontinue Good catheter again. 04/18: Overnight patient to be straight cath x2 but did eventually have spontaneous urine output today and Good catheter was not replaced, patient had MRI brain today and was started on T-piece trials. He received Versed for sedation for MRI brain. 04/19: Good catheter was not replaced overnight patient is still voiding, placed on T-piece today, scopolamine and Robinul restarted. 04/20: Patient T-piece trial again today, will decrease bowel regimen in a.m. for entering T-piece for 24 hours obtain gas in the a.m. Cefazolin increased 04/21: Patient remained on trach collar throughout the day, will be transitioned to IMCU. Good catheter was replaced overnight due to retention. 04/22: Patient continues to tolerate Trach collar, still with volume overload will continue with diuresis, monitor electrolytes, aggressive pulmonary toliet, aspiration precautions History Interval history: Patient seen and examined, resting comfortable, still trach Piece in place. Hospitalist Physical - Physical exam Narrative exam: General appearance: Present: no acute distress, well-nourished, obese, - EENT Eyes: Present: PERRL, EOM intact ENT: hearing intact, clear oral mucosa, dentition normal - Neck Neck: Present: Trach collar, ROM - Respiratory Respiratory effort: normal Respiratory: bilateral: CTA, diminished - Cardiovascular Rhythm: regular Heart Sounds: Present: S1 & S2. Absent: systolic murmur, diastolic murmur - Extremities Extremities: no ischemia, pulses intact, pulses symmetrical, normal temperature Peripheral Pulses: within normal limits - Abdominal General gastrointestinal: soft, non-tender, non-distended, normal bowel sounds - Integumentary Integumentary: Present: warm, anascar, edema - Psychiatric Psychiatric: cooperative - Neurologic Neurologic: CNII-XII intact, no focal deficits, moves all extremities - Allied Health Allied health notes reviewed: nursing, PT, OT, RT, social work - Constitutional Vitals: Temp Pulse Resp BP Pulse Ox 98.5 F 115 H 35 H 140/82 98 04/22/21 08:00 04/22/21 10:31 04/22/21 10:31 04/22/21 10:31 04/22/21 10:01 General appearance: Present: no acute distress, well-nourished, obese, other (Unresponsive) Results - Labs CBC & Chem 7: 04/22/21 04:30 04/22/21 04:30 Labs: Laboratory Last Values WBC 12.3 K/mm3 (4.5-11.0) H 04/22/21 04:30 RBC 3.20 M/mm3 (3.65-5.03) L 04/22/21 04:30 Hgb 9.5 gm/dl (11.8-15.2) L 04/22/21 04:30 Hct 29.3 % (35.5-45.6) L 04/22/21 04:30 MCV 92 fl (84-94) 04/22/21 04:30 MCH 30 pg (28-32) 04/22/21 04:30 MCHC 32 % (32-34) 04/22/21 04:30 RDW 16.6 % (13.2-15.2) H 04/22/21 04:30 Plt Count 418 K/mm3 (140-440) 04/22/21 04:30 Lymph % (Auto) 7.6 % (13.4-35.0) L 03/31/21 13:30 Pettis % (Auto) 9.5 % (0.0-7.3) H 03/31/21 13:30 Eos % (Auto) 4.1 % (0.0-4.3) 03/31/21 13:30 Baso % (Auto) 0.5 % (0.0-1.8) 03/31/21 13:30 Lymph # (Auto) 0.6 K/mm3 (1.2-5.4) L 03/31/21 13:30 Pettis # (Auto) 0.7 K/mm3 (0.0-0.8) 03/31/21 13:30 Eos # (Auto) 0.3 K/mm3 (0.0-0.4) 03/31/21 13:30 Baso # (Auto) 0.0 K/mm3 (0.0-0.1) 03/31/21 13:30 Add Manual Diff Complete 04/11/21 06:47 Total Counted 100 04/11/21 06:47 Seg Neutrophils % 78.3 % (40.0-70.0) H 03/31/21 13:30 Seg Neuts % (Manual) 76.0 % (40.0-70.0) H 04/11/21 06:47 Band Neutrophils % 2.0 % 04/11/21 06:47 Lymphocytes % (Manual) 10.0 % (13.4-35.0) L 04/11/21 06:47 Reactive Lymphs % (Man) 0 % 04/11/21 06:47 Monocytes % (Manual) 7.0 % (0.0-7.3) 04/11/21 06:47 Eosinophils % (Manual) 4.0 % (0.0-4.3) 04/11/21 06:47 Basophils % (Manual) 0 % (0.0-1.8) 04/11/21 06:47 Metamyelocytes % 1.0 % 04/11/21 06:47 Myelocytes % 0 % 04/11/21 06:47 Promyelocytes % 0 % 04/11/21 06:47 Blast Cells % 0 % 04/11/21 06:47 Nucleated RBC % Not Reportable 04/11/21 06:47 Seg Neutrophils # 5.8 K/mm3 (1.8-7.7) 03/31/21 13:30 Seg Neutrophils # Man 8.3 K/mm3 (1.8-7.7) H 04/11/21 06:47 Band Neutrophils # 0.2 K/mm3 04/11/21 06:47 Lymphocytes # (Manual) 1.1 K/mm3 (1.2-5.4) L 04/11/21 06:47 Abs React Lymphs (Man) 0.0 K/mm3 04/11/21 06:47 Monocytes # (Manual) 0.8 K/mm3 (0.0-0.8) 04/11/21 06:47 Eosinophils # (Manual) 0.4 K/mm3 (0.0-0.4) 04/11/21 06:47 Basophils # (Manual) 0.0 K/mm3 (0.0-0.1) 04/11/21 06:47 Metamyelocytes # 0.1 K/mm3 04/11/21 06:47 Myelocytes # 0.0 K/mm3 04/11/21 06:47 Promyelocytes # 0.0 K/mm3 04/11/21 06:47 Blast Cells # 0.0 K/mm3 04/11/21 06:47 WBC Morphology Not Reportable 04/11/21 06:47 Hypersegmented Neuts Not Reportable 04/11/21 06:47 Hyposegmented Neuts Not Reportable 04/11/21 06:47 Hypogranular Neuts Not Reportable 04/11/21 06:47 Smudge Cells Not Reportable 04/11/21 06:47 Toxic Granulation 1+ 04/11/21 06:47 Toxic Vacuolation Not Reportable 04/11/21 06:47 Dohle Bodies Not Reportable 04/11/21 06:47 Pelger-Huet Anomaly Not Reportable 04/11/21 06:47 Mely Rods Not Reportable 04/11/21 06:47 Platelet Estimate Consistent w auto 04/11/21 06:47 Clumped Platelets Not Reportable 04/11/21 06:47 Plt Clumps, EDTA Not Reportable 04/11/21 06:47 Large Platelets Not Reportable 04/11/21 06:47 Giant Platelets Not Reportable 04/11/21 06:47 Platelet Satelliting Not Reportable 04/11/21 06:47 Plt Morphology Comment Not Reportable 04/11/21 06:47 RBC Morphology Not Reportable 04/11/21 06:47 Dimorphic RBCs Not Reportable 04/11/21 06:47 Polychromasia Not Reportable 04/11/21 06:47 Hypochromasia Not Reportable 04/11/21 06:47 Poikilocytosis Not Reportable 04/11/21 06:47 Anisocytosis 1+ 04/11/21 06:47 Microcytosis Not Reportable 04/11/21 06:47 Macrocytosis Not Reportable 04/11/21 06:47 Spherocytes Not Reportable 04/11/21 06:47 Pappenheimer Bodies Not Reportable 04/11/21 06:47 Sickle Cells Not Reportable 04/11/21 06:47 Target Cells Not Reportable 04/11/21 06:47 Tear Drop Cells Not Reportable 04/11/21 06:47 Ovalocytes Not Reportable 04/11/21 06:47 Helmet Cells Not Reportable 04/11/21 06:47 [place] Bodies Not Reportable 04/11/21 06:47 [place] Rings Not Reportable 04/11/21 06:47 [place] Cells Not Reportable 04/11/21 06:47 Bite Cells Not Reportable 04/11/21 06:47 Crenated Cell Not Reportable 04/11/21 06:47 Elliptocytes Not Reportable 04/11/21 06:47 Acanthocytes (Spur) Not Reportable 04/11/21 06:47 Rouleaux Not Reportable 04/11/21 06:47 Hemoglobin C Crystals Not Reportable 04/11/21 06:47 Schistocytes Not Reportable 04/11/21 06:47 Malaria parasites Not Reportable 04/11/21 06:47 Shaheen Bodies Not Reportable 04/11/21 06:47 Hem Pathologist Commnt No 04/11/21 06:47 PT 13.4 Sec. (12.2-14.9) 04/11/21 18:17 INR 0.92 (0.87-1.13) 04/11/21 18:17 APTT 61.1 Sec. (24.2-36.6) H* 04/11/21 18:17 D-Dimer 1359.12 ng/mlDDU (0-234) H 03/17/21 04:40 Heparin Anti-Xa Level 1.03 U.I./ml (0.3-0.7) H 04/12/21 05:11 ABG pH 7.503 (7.320-7.450) H 04/21/21 11:37 POC ABG pCO2 43.0 mmHg (32.0-48.0) 04/21/21 11:37 ABG pCO2 50.9 mm Hg 04/18/21 11:30 POC ABG pO2 92.3 mmHg (83-108) 04/21/21 11:37 ABG pO2 108.9 mm Hg (80.0-90.0) H 04/18/21 11:30 POC ABG HCO3 33.0 04/21/21 11:37 ABG HCO3 36.2 mmol/L (20.0-26.0) H 04/18/21 11:30 ABG O2 Saturation 98.2 (0-100) 04/21/21 11:37 ABG O2 Content 12.1 (0.0-44) 04/18/21 11:30 POC ABG Base Excess 9.0 04/21/21 11:37 ABG Base Excess 11.2 mmol/L (-2.0-3.0) H 04/18/21 11:30 ABG Hemoglobin 10.8 (12.0-17.5) L 04/21/21 11:37 ABG Oxyhemoglobin 97.8 (94-98) 04/21/21 11:37 ABG Carboxyhemoglobin 1.7 % (0.0-5.0) 04/18/21 11:30 ABG Methemoglobin 0.3 (0.0-1.5) 04/21/21 11:37 ABG Sodium 134.2 mmol/L (136.0-145.0) L 03/12/21 21:54 ABG Potassium 4.9 mmol/L (3.40-4.50) H 03/12/21 21:54 ABG Chloride 99.0 mmol/L (98-107) 03/12/21 21:54 ABG Glucose 306 mg/dL (65-95) H 03/12/21 21:54 Oxyhemoglobin 95.9 % (95.0-99.0) 04/18/21 11:30 Carboxyhemoglobin 0.1 (0.5-1.5) L 04/21/21 11:37 FiO2 40 % 04/18/21 11:30 FiO2 % 35.0 04/21/21 11:37 Sodium 139 mmol/L (137-145) 04/22/21 04:30 Potassium 3.8 mmol/L (3.6-5.0) 04/22/21 04:30 Chloride 103.1 mmol/L (98-107) 04/22/21 04:30 Carbon Dioxide 25 mmol/L (22-30) 04/22/21 04:30 Anion Gap 15 mmol/L 04/22/21 04:30 BUN 15 mg/dL (9-20) 04/22/21 04:30 Creatinine 0.3 mg/dL (0.8-1.3) L 04/22/21 04:30 Estimated GFR > 60 ml/min 04/22/21 04:30 BUN/Creatinine Ratio 50 % 04/22/21 04:30 Glucose 125 mg/dL (75-100) H 04/22/21 04:30 POC Glucose 112 mg/dL (70-105) H 04/22/21 05:17 Lactic Acid 1.90 mmol/L (0.7-2.0) 03/08/21 23:51 Calcium 9.0 mg/dL (8.4-10.2) 04/22/21 04:30 Phosphorus 3.60 mg/dL (2.5-4.5) 04/17/21 04:25 Magnesium 2.30 mg/dL (1.7-2.3) 04/19/21 04:26 Ferritin 976.4 ng/mL (30.0-300.0) H 03/15/21 04:00 Total Bilirubin 0.20 mg/dL (0.1-1.2) 03/12/21 08:03 AST 10 units/L (5-40) 03/12/21 08:03 ALT 16 units/L (7-56) 03/12/21 08:03 Alkaline Phosphatase 77 units/L (35-129) 03/12/21 08:03 Lactate Dehydrogenase 630 units/L (91-180) H 03/15/21 06:06 C-Reactive Protein 0.40 mg/dL (0.00-1.30) 03/17/21 04:40 NT-Pro-B Natriuret Pep 1053 pg/mL (0-900) H 03/08/21 20:24 Total Protein 6.0 g/dL (6.3-8.2) L 03/12/21 08:03 Albumin 2.9 g/dL (3.9-5) L 03/12/21 08:03 Albumin/Globulin Ratio 0.9 % 03/12/21 08:03 Triglycerides 305 mg/dL (2-149) H 03/22/21 07:26 Procalcitonin 0.19 ng/mL (<0.15) 04/18/21 04:20 Arterial Blood Glucose 306 mg/dL (65-95) H 03/12/21 21:54 Arterial Blood Ionized Calcium 5.0 mg/dL (4.6-5.3) 03/12/21 21:54 Urine Color Yellow (Yellow) 04/14/21 Unknown Urine Turbidity Clear (Clear) 04/14/21 Unknown Urine pH 8.0 (5.0-7.0) H 04/14/21 Unknown Ur Specific [place] 1.009 (1.003-1.030) 04/14/21 Unknown Urine Protein <15 mg/dl mg/dL (Negative) 04/14/21 Unknown Urine Glucose (UA) Neg mg/dL (Negative) 04/14/21 Unknown Urine Ketones Neg mg/dL (Negative) 04/14/21 Unknown Urine Blood Neg (Negative) 04/14/21 Unknown Urine Nitrite Neg (Negative) 04/14/21 Unknown Urine Bilirubin Neg (Negative) 04/14/21 Unknown Urine Urobilinogen 2.0 mg/dL (<2.0) 04/14/21 Unknown Ur Leukocyte Esterase Neg (Negative) 04/14/21 Unknown Urine WBC (Auto) < 1.0 /HPF (0.0-6.0) 04/14/21 Unknown Urine RBC (Auto) < 1.0 /HPF (0.0-6.0) 04/14/21 Unknown Urine Bacteria (Auto) 1+ /HPF (Negative) 03/09/21 04:10 Urine Mucus Few /HPF 03/09/21 04:10 Vancomycin Trough 16.8 ug/mL (5.0-20.0) 04/16/21 14:30 Coronavirus (PCR) Positive (Negative) A 03/09/21 08:00 Miscellaneous Test Flexitest 1 03/16/21 13:14 Good/IV: Voiding Method Indwelling Catheter Active Medications - Current Medications Current Medications: Generic Name Dose Route Start Last Admin Trade Name Freq PRN Reason Stop Dose Admin Acetaminophen 650 mg 03/09/21 01:26 04/18/21 00:48 Acetaminophen 325 Mg Tab PO 650 mg Q4H PRN Administration Pain MILD(1-3)/Fever >100.5/RAYO Albuterol 2.5 mg 03/09/21 01:26 03/18/21 21:06 Albuterol 2.5 Mg/3 Ml Nebu IH 2.5 mg Q4HRT PRN Administration Shortness Of Breath Amlodipine Besylate 10 mg 04/11/21 10:00 04/22/21 09:49 Amlodipine 5 Mg Tab PO 10 mg QDAY BLANCA Administration Apixaban 5 mg 04/18/21 22:00 04/22/21 09:49 Apixaban 5 Mg Tab PO 5 mg Q12HR BLANCA Administration Protocol Arformoterol Tartrate 15 mcg 03/11/21 20:00 04/22/21 08:11 Arformoterol 15 Mcg/2 Ml Nebu IH 15 mcg Q12HRT [facility]AN[facility] Administration Bisacodyl 10 mg 03/26/21 13:43 03/26/21 13:51 Bisacodyl 10 Mg Rect Supp VT 10 mg QDAY PRN Administration Constipation Budesonide 0.5 mg 04/06/21 20:00 04/22/21 08:12 Budesonide 0.5 Mg/2 Ml Nebu IH 0.5 mg Q12HRT [facility] Administration Dextrose 0 ml 03/20/21 10:52 Dextrose 10% *Hypoglycemia IV PRN PRN Hypoglycemia Doxazosin Mesylate 1 mg 04/05/21 22:00 04/22/21 09:48 Doxazosin 1 Mg Tab PO 1 mg BID [facility] Administration Famotidine 20 mg 03/12/21 22:00 04/22/21 09:49 Famotidine 20 Mg Tab FEEDTUBE 20 mg BID [facility] Administration Fentanyl 50 mcg 04/14/21 11:00 04/14/21 21:37 Fentanyl 100 Mcg/2 Ml Inj IV 50 mcg Q2HR PRN Administration COPT greater than 3 Furosemide 40 mg 04/20/21 15:00 04/22/21 09:49 Furosemide 40 Mg/4 Ml Inj IV 04/23/21 14:59 40 mg QDAY [facility] Administration Glycopyrrolate 1 mg 04/19/21 14:00 04/22/21 09:56 Glycopyrrolate 1 Mg Tab PO 1 mg TID [facility] Administration Hydralazine HCl 50 mg 03/23/21 14:26 04/22/21 05:37 Hydralazine 25 Mg Tab PO 50 mg Q8HR [facility] Administration Cefazolin Sodium 3 gm/ Sodium 100 mls @ 100 mls/30 min 04/20/21 14:00 04/22/21 06:24 Chloride IV 100 mls/30 min Q8HR [facility] Administration Protocol Insulin Glargine 18 units 04/07/21 22:00 04/21/21 23:30 Insulin Glargine 100 Units/Ml SUB-Q 18 units QHS [facility] Administration Insulin Human Lispro 0 unit 03/11/21 18:00 04/22/21 05:29 Insulin Lispro 100 Unit/Ml SUB-Q Not Given Q6HR [facility] Protocol Metoprolol Tartrate 12.5 mg 03/21/21 22:00 04/22/21 09:49 Metoprolol Tartrate 25 Mg Tab PO 12.5 mg BID [facility] Administration Ondansetron HCl 4 mg 03/09/21 01:26 04/13/21 16:17 Ondansetron 4 Mg/2 Ml Inj IV 4 mg Q8H PRN Administration Nausea And Vomiting Oxycodone HCl 5 mg 04/13/21 12:34 04/20/21 12:47 Oxycodone 5 Mg Tab PO 5 mg Q6HR PRN Administration Pain, Moderate (4-6) Phenyleph/Shark Oil/Min Oil/Petrol 1 applic 03/22/21 17:35 04/06/21 04:04 Pe/Mo/Pet,Wh 10 Applic/28 Gm Tube VT 1 applic Q6HR PRN Administration Hemorrhoids Polyethylene Glycol 17 gm 04/02/21 10:00 04/22/21 09:50 Polyethylene Glycol 3350 17 Gm Powder FEEDTUBE 17 gm QDAY [facility] Administration Scopolamine 1 each 04/19/21 13:00 04/22/21 09:49 Scopolamine Transdermal Patch 72 Hr TD 1 each Q3D [facility] Administration Sodium Chloride 10 ml 03/09/21 10:00 04/22/21 09:50 Sodium Chloride 0.9% 10 Ml Flush Syringe IV 10 ml BID [facility] Administration Sodium Chloride 10 ml 03/09/21 01:26 04/10/21 21:07 Sodium Chloride 0.9% 10 Ml Flush Syringe IV 10 ml PRN PRN Administration LINE FLUSH Nutrition/Malnutrition Assess - Dietary Evaluation Nutrition/Malnutrition Findings: Nutrition Notes Start: 03/09/21 08:49 Freq: Status: Active Protocol: Document 04/21/21 14:27 [facility] (Rec: 04/21/21 14:29 [facility] [id number]) Nutrition Notes Initial or Follow up Reassessment Current Diagnosis Diabetes,Sepsis,Hypertension, Respiratory Failure Other Pertinent Diagnosis COVID-19, Bilateral Pneumonia. Current Diet TF-Glucerna 1.2 at 70 ml/hr Labs/Tests reviewed Pertinent Medications Lasix Height 5 ft 11 in Weight 122.4 kg Parachute Body Weight (kg) 78.18 BMI 37.6 Weight Status Obese Subjective/Other Information Pt tolerating T-piece trials for past two days. Per RN, will move to [facility]. Pt continues to tolerate TF at goal rate. Percent of energy/protein needs met: 82% energy 78% pro Burn Absent Trauma Absent #1 Nutrition Diagnosis Inadequate oral intake Diagnosis Progress(for reassessment Continues documentation) Is patient on ventilator? No Is Patient Ambulatory and/or Out of Bed No REE-([facility]-confined to bed) [phone] Calculation Used for Recommendations 70-80% energy needs Additional Notes Energy needs: 3846-7926 kcal/ day Pro needs 1.3g/kg adjBW: 130g/ day Fluid needs 1ml/kcal Nutrition Intervention Nutrition Support: Continue Glucerna 1.2 at 70ml/ hr with 110ml water flush q4h. Kcal 2,016 Protein (gm) 101 Carbohydrates (gm) 192 Fat (gm) 101 Fluid (mL) 1,352 Fiber (gm) 27 Goal #1 TF tolerance Goal #2 TF to meet at least 75% energy and pro needs Follow-Up By: 04/28/21 Additional Comments F/U: stable TF, wt, resp status
--- NOTE | 2021-04-22 18:01 | Progress Note ---
Assessment and Plan 61-year-old male with past medical history of hypertension and diabetes was brought to the emergency room because of shortness of breath and hypoxia. Patient has been feeling ill for approximately a week. Patient was confused and paramedics were called. Patient's oxygen saturation levels were in the low 70s. 88-90% O2 sat on a NRB mask. Patient does state he has had some cough was unable to give much additional history on arrival. Denies nausea vomiting diarrhea. Patient has not had a COVID test atient hypoxic even on a nonrebreather at 88%. Patient placed on BiPAP and his gait has a better O2 sat and his alertness is improved as well. Patient with by lateral patchy infiltrates in all lobes consistent with COVID-pneumonia. COVID testing is ordered. Umanzor virus test came back positive. Patient given Rocephin ,azithromycin and low-dose Decadron since he is diabetic. Patient to be admitted to the hospital service. Patient also given REMDESIVIR. Later decadron switched to I/V solumedrol. Patients inflammatory markers, D dimer, ferritin CRP are elevated. patient started on anticoagulation. Patient intubated and placed on mechanical ventilation. Patient has tracheostomy, eventually weaned from the ventilator, Patient Obese, sleeping at this time. Patient is on T tube, FIO2 28%. O2 saturation running 96%. No acute respiratory distress. Patient running low grade temp. Patient has mild leukocytosis. Blood pressure 110/66, Pulse 107, Respirations 28. Chest xray done 04/17/21 reported Mild improvement in pulmonary opacities. Patient is on Apixaban, Brovanna/Budesonide aerosol treatments, Famoti dine,Glycopyrrolate and Cefazolin I spent critical care time of 40 minutes, review the chart, examine the patient, review chest xray and lab results, talking to respiratory and nursing staff and work out plan of treatment in this critically ill Covid 19 positive patient. - Patient Problems (1) Acute respiratory failure Current Visit: Yes Status: Acute Plan to address problem: Patient is on T tube, FIO2 28%. Brovanna/Budesonide aerosol treatments. Continue Apixaban Continue famotidine. (2) Diabetes Current Visit: Yes Status: Acute Plan to address problem: Management as per primary care. (3) Hypertension Current Visit: Yes Status: Acute Plan to address problem: Management as per primary care. (4) Coronavirus infection Current Visit: Yes Status: Acute Plan to address problem: Patient was on I/V solumedrol, REMDESIVIR,Apixaban, ceftriaxone and zithromax. Management as per infectious disease specialists. Subjective Date of service: 04/22/21 Principal diagnosis: COVID-19 infection; DM II; Bilateral pneumonia; Obesity; HTN Interval history: 61-year-old male with past medical history of hypertension and diabetes was brought to the emergency room because of shortness of breath and hypoxia. Patient has been feeling ill for approximately a week. Patient was confused and paramedics were called. Patient's oxygen saturation levels were in the low 70s. 88-90% O2 sat on a NRB mask. Patient does state he has had some cough was unable to give much additional history on arrival. Denies nausea vomiting diarrhea. Patient has not had a COVID test Patient hypoxic even on a nonrebreather at 88%. Patient placed on BiPAP and his gait has a better O2 sat and his alertness is improved as well. Patient with by lateral patchy infiltrates in all lobes consistent with COVID-pneumonia. COVID testing is ordered. Umanzor virus test came back positive. Patient given Rocephin ,azithromycin and low-dose Decadron since he is diabetic. Patient to be admitted to the hospital service. Patient also given REMDESIVIR. Later decadron switched to I/V solumedrol. Patients inflammatory markers, D dimer, ferritin CRP are elevated. patient started on anticoagulation. Patient intubated and placed on mechanical ventilation. Patient has tracheostomy, eventually weaned from the ventilator, Patient Obese, sleeping at this time. Patient is on T tube, FIO2 28%. O2 saturation running 96%. No acute respiratory distress. Patient running low grade temp. Patient has mild leukocytosis. Blood pressure 110/66, Pulse 107, Respirations 28. Chest xray done 04/17/21 reported Mild improvement in pulmonary opacities. Patient is on Apixaban, Brovanna/Budesonide aerosol treatments, Famotidine,Glycopyrrolate and Cefazolin Objective Vital Signs - 12hr 04/22/21 04/22/21 04/22/21 06:00 06:01 06:31 Temperature Pulse Rate 100 H 102 H Pulse Rate [ Bilateral Throughout] Pulse Rate [ From Monitor] Respiratory 30 H 29 H Rate Respiratory Rate [Bilateral Throughout] Blood Pressure 138/71 130/69 138/71 O2 Sat by Pulse 98 97 Oximetry O2 Sat by Pulse Oximetry [ Assessment] 04/22/21 04/22/21 04/22/21 07:01 07:31 08:00 Temperature 98.5 F Pulse Rate 103 H 107 H 103 H Pulse Rate [ 106 H Bilateral Throughout] Pulse Rate [ 103 H From Monitor] Respiratory 32 H 28 H 33 H Rate Respiratory 34 H Rate [Bilateral Throughout] Blood Pressure 133/68 133/68 O2 Sat by Pulse 97 94 96 Oximetry O2 Sat by Pulse 94 Oximetry [ Assessment] 04/22/21 04/22/21 04/22/21 08:01 08:10 08:31 Temperature Pulse Rate 108 H 109 H Pulse Rate [ Bilateral Throughout] Pulse Rate [ From Monitor] Respiratory 29 H 33 H Rate Respiratory Rate [Bilateral Throughout] Blood Pressure 133/68 133/68 O2 Sat by Pulse 97 96 96 Oximetry O2 Sat by Pulse Oximetry [ Assessment] 04/22/21 04/22/21 04/22/21 09:01 09:31 09:48 Temperature Pulse Rate 110 H 112 H 109 H Pulse Rate [ Bilateral Throughout] Pulse Rate [ From Monitor] Respiratory 31 H 20 Rate Respiratory Rate [Bilateral Throughout] Blood Pressure 123/64 123/64 123/64 O2 Sat by Pulse 96 98 Oximetry O2 Sat by Pulse Oximetry [ Assessment] 04/22/21 04/22/21 04/22/21 09:49 10:01 10:31 Temperature Pulse Rate 109 H 109 H 115 H Pulse Rate [ Bilateral Throughout] Pulse Rate [ From Monitor] Respiratory 17 35 H Rate Respiratory Rate [Bilateral Throughout] Blood Pressure 123/64 123/64 140/82 O2 Sat by Pulse 98 Oximetry O2 Sat by Pulse Oximetry [ Assessment] 04/22/21 04/22/21 04/22/21 11:01 11:31 12:00 Temperature Pulse Rate 110 H 103 H 98 H Pulse Rate [ Bilateral Throughout] Pulse Rate [ 98 H From Monitor] Respiratory 23 30 H 31 H Rate Respiratory Rate [Bilateral Throughout] Blood Pressure 140/82 144/82 O2 Sat by Pulse 97 97 96 Oximetry O2 Sat by Pulse Oximetry [ Assessment] 04/22/21 04/22/21 04/22/21 12:01 12:31 13:01 Temperature Pulse Rate 101 H 102 H 100 H Pulse Rate [ Bilateral Throughout] Pulse Rate [ From Monitor] Respiratory 35 H 26 H 29 H Rate Respiratory Rate [Bilateral Throughout] Blood Pressure 139/81 139/81 117/70 O2 Sat by Pulse 98 98 97 Oximetry O2 Sat by Pulse Oximetry [ Assessment] 04/22/21 04/22/21 04/22/21 13:31 14:00 14:31 Temperature Pulse Rate 96 H 98 H 102 H Pulse Rate [ Bilateral Throughout] Pulse Rate [ From Monitor] Respiratory 33 H 38 H 32 H Rate Respiratory Rate [Bilateral Throughout] Blood Pressure 117/70 124/68 124/68 O2 Sat by Pulse 95 96 93 Oximetry O2 Sat by Pulse Oximetry [ Assessment] 04/22/21 04/22/21 04/22/21 14:45 15:00 15:31 Temperature Pulse Rate 96 H 97 H Pulse Rate [ Bilateral Throughout] Pulse Rate [ From Monitor] Respiratory 34 H 31 H Rate Respiratory Rate [Bilateral Throughout] Blood Pressure 130/76 130/76 O2 Sat by Pulse 95 97 97 Oximetry O2 Sat by Pulse Oximetry [ Assessment] 04/22/21 16:00 Temperature Pulse Rate 97 H Pulse Rate [ Bilateral Throughout] Pulse Rate [ 98 H From Monitor] Respiratory 29 H Rate Respiratory Rate [Bilateral Throughout] Blood Pressure 136/80 O2 Sat by Pulse 96 Oximetry O2 Sat by Pulse Oximetry [ Assessment] Constitutional: no acute distress, asleep, other (elderly obese male with mildly increased respiratory effort at rest) Eyes: non-icteric, other ENT: oropharynx moist, other (+ midline tracheostomy) Neck: supple, no lymphadenopathy, lymphadenopathy, no JVD, other (large circumfe rence) Effort: mildly labored Ascultation: Bilateral: diminished breath sounds, rales, rhonchi Percussion: Bilateral: not dull Cardiovascular: regular rate and rhythm, other (tachycardia, S1,S2) Gastrointestinal: normoactive bowel sounds, soft, non-tender, non-distended (pro tuberant), other (Good in place) Integumentary: normal Extremities: no cyanosis, pulses normal, no ischemia or petechiae, edema (upper extremities), other Neurologic: non-focal exam (grossly), pupils equal and round, CN II-XII normal Psychiatric: other (Patient sleeping at this time.) CBC and BMP: 04/22/21 04:30 04/22/21 04:30 ABG, PT/INR, D-dimer: ABG ABG pH 7.503 (7.320-7.450) H 04/21/21 11:37 POC ABG pCO2 43.0 mmHg (32.0-48.0) 04/21/21 11:37 ABG pCO2 50.9 mm Hg 04/18/21 11:30 POC ABG pO2 92.3 mmHg (83-108) 04/21/21 11:37 ABG pO2 108.9 mm Hg (80.0-90.0) H 04/18/21 11:30 POC ABG HCO3 33.0 04/21/21 11:37 ABG O2 Saturation 98.2 (0-100) 04/21/21 11:37 PT/INR, D-dimer PT 13.4 Sec. (12.2-14.9) 04/11/21 18:17 INR 0.92 (0.87-1.13) 04/11/21 18:17 D-Dimer 1359.12 ng/mlDDU (0-234) H 03/17/21 04:40 Abnormal lab findings: Abnormal Labs 03/08/21 03/08/21 03/08/21 20:24 20:24 20:24 WBC 22.6 H RBC 5.44 H Hgb 15.7 H Hct 49.2 H MCV MCHC RDW Plt Count Lymph % (Auto) [place] % (Auto) Lymph # (Auto) [place] # (Auto) Seg Neutrophils % Seg Neuts % (Manual) 83.0 H Lymphocytes % (Manual) 9.0 L Monocytes % (Manual) 8.0 H Nucleated RBC % Seg Neutrophils # Seg Neutrophils # Man 18.8 H Lymphocytes # (Manual) Monocytes # (Manual) 1.8 H PT 16.1 H INR 1.17 H APTT D-Dimer > 41922 H Heparin Anti-Xa Level ABG pH POC ABG pCO2 POC ABG pO2 ABG pO2 ABG HCO3 ABG O2 Saturation ABG Base Excess ABG Hemoglobin ABG Oxyhemoglobin ABG Sodium ABG Potassium ABG Glucose Oxyhemoglobin Carboxyhemoglobin Sodium 136 L Potassium Chloride 93.9 L Carbon Dioxide BUN 29 H Creatinine Glucose 208 H POC Glucose Lactic Acid Calcium Phosphorus Magnesium Ferritin Lactate Dehydrogenase 624 H C-Reactive Protein 18.00 H NT-Pro-B Natriuret Pep 1053 H Total Protein Albumin Triglycerides Arterial Blood Glucose Urine pH Ur Specific [place] Coronavirus (PCR) 03/08/21 03/08/21 03/09/21 20:24 20:24 04:10 WBC RBC Hgb Hct MCV MCHC RDW Plt Count Lymph % (Auto) [place] % (Auto) Lymph # (Auto) [place] # (Auto) Seg Neutrophils % Seg Neuts % (Manual) Lymphocytes % (Manual) Monocytes % (Manual) Nucleated RBC % Seg Neutrophils # Seg Neutrophils # Man Lymphocytes # (Manual) Monocytes # (Manual) PT INR APTT D-Dimer Heparin Anti-Xa Level ABG pH POC ABG pCO2 POC ABG pO2 ABG pO2 ABG HCO3 ABG O2 Saturation ABG Base Excess ABG Hemoglobin ABG Oxyhemoglobin ABG Sodium ABG Potassium ABG Glucose Oxyhemoglobin Carboxyhemoglobin Sodium Potassium Chloride Carbon Dioxide BUN Creatinine Glucose POC Glucose Lactic Acid 2.10 H* Calcium Phosphorus Magnesium Ferritin 877.5 H Lactate Dehydrogenase C-Reactive Protein NT-Pro-B Natriuret Pep Total Protein Albumin Triglycerides Arterial Blood Glucose Urine pH Ur Specific [place] 1.041 H Coronavirus (PCR) 03/09/21 03/09/21 03/09/21 07:46 08:00 13:01 WBC RBC Hgb Hct MCV MCHC RDW Plt Count Lymph % (Auto) [place] % (Auto) Lymph # (Auto) [place] # (Auto) Seg Neutrophils % Seg Neuts % (Manual) Lymphocytes % (Manual) Monocytes % (Manual) Nucleated RBC % Seg Neutrophils # Seg Neutrophils # Man Lymphocytes # (Manual) Monocytes # (Manual) PT INR APTT D-Dimer Heparin Anti-Xa Level ABG pH POC ABG pCO2 POC ABG pO2 ABG pO2 ABG HCO3 ABG O2 Saturation ABG Base Excess ABG Hemoglobin ABG Oxyhemoglobin ABG Sodium ABG Potassium ABG Glucose Oxyhemoglobin Carboxyhemoglobin Sodium Potassium Chloride Carbon Dioxide BUN Creatinine Glucose POC Glucose 191 H 182 H Lactic Acid Calcium Phosphorus Magnesium Ferritin Lactate Dehydrogenase C-Reactive Protein NT-Pro-B Natriuret Pep Total Protein Albumin Triglycerides Arterial Blood Glucose Urine pH Ur Specific [place] Coronavirus (PCR) Positive A 03/09/21 03/09/21 03/09/21 15:19 17:48 18:10 WBC RBC Hgb Hct MCV MCHC RDW Plt Count Lymph % (Auto) [place] % (Auto) Lymph # (Auto) [place] # (Auto) Seg Neutrophils % Seg Neuts % (Manual) Lymphocytes % (Manual) Monocytes % (Manual) Nucleated RBC % Seg Neutrophils # Seg Neutrophils # Man Lymphocytes # (Manual) Monocytes # (Manual) PT INR APTT D-Dimer Heparin Anti-Xa Level ABG pH POC ABG pCO2 POC ABG pO2 ABG pO2 47.3 L ABG HCO3 26.3 H ABG O2 Saturation 83.7 L ABG Base Excess ABG Hemoglobin ABG Oxyhemoglobin ABG Sodium ABG Potassium ABG Glucose Oxyhemoglobin 82.1 L Carboxyhemoglobin Sodium Potassium Chloride Carbon Dioxide BUN 29 H Creatinine Glucose 214 H POC Glucose 194 H Lactic Acid Calcium Phosphorus Magnesium Ferritin Lactate Dehydrogenase C-Reactive Protein NT-Pro-B Natriuret Pep Total Protein Albumin 3.4 L Triglycerides Arterial Blood Glucose Urine pH Ur Specific [place] Coronavirus (PCR) 03/09/21 03/10/21 03/10/21 20:40 04:29 04:29 WBC 20.6 H RBC 5.07 H Hgb Hct 46.2 H MCV MCHC RDW Plt Count Lymph % (Auto) [place] % (Auto) Lymph # (Auto) [place] # (Auto) Seg Neutrophils % Seg Neuts % (Manual) 94.0 H Lymphocytes % (Manual) 1.0 L Monocytes % (Manual) Nucleated RBC % 3.0 H Seg Neutrophils # Seg Neutrophils # Man 19.4 H Lymphocytes # (Manual) 0.2 L Monocytes # (Manual) 1.0 H PT INR APTT D-Dimer Heparin Anti-Xa Level ABG pH POC ABG pCO2 POC ABG pO2 ABG pO2 ABG HCO3 ABG O2 Saturation ABG Base Excess ABG Hemoglobin ABG Oxyhemoglobin ABG Sodium ABG Potassium ABG Glucose Oxyhemoglobin Carboxyhemoglobin Sodium Potassium Chloride Carbon Dioxide BUN 29 H Creatinine Glucose 188 H POC Glucose 176 H Lactic Acid Calcium Phosphorus Magnesium Ferritin Lactate Dehydrogenase C-Reactive Protein NT-Pro-B Natriuret Pep Total Protein Albumin 3.3 L Triglycerides Arterial Blood Glucose Urine pH Ur Specific [place] Coronavirus (PCR) 03/10/21 03/10/21 03/10/21 05:22 10:27 15:25 WBC RBC Hgb Hct MCV MCHC RDW Plt Count Lymph % (Auto) [place] % (Auto) Lymph # (Auto) [place] # (Auto) Seg Neutrophils % Seg Neuts % (Manual) Lymphocytes % (Manual) Monocytes % (Manual) Nucleated RBC % Seg Neutrophils # Seg Neutrophils # Man Lymphocytes # (Manual) Monocytes # (Manual) PT INR APTT D-Dimer Heparin Anti-Xa Level ABG pH 7.488 H 7.488 H POC ABG pCO2 POC ABG pO2 ABG pO2 47.7 L 50.5 L ABG HCO3 ABG O2 Saturation 86.2 L 87.9 L ABG Base Excess ABG Hemoglobin ABG Oxyhemoglobin ABG Sodium ABG Potassium ABG Glucose Oxyhemoglobin 84.6 L 86.2 L Carboxyhemoglobin Sodium Potassium Chloride Carbon Dioxide BUN Creatinine Glucose POC Glucose 155 H Lactic Acid Calcium Phosphorus Magnesium Ferritin Lactate Dehydrogenase C-Reactive Protein NT-Pro-B Natriuret Pep Total Protein Albumin Triglycerides Arterial Blood Glucose Urine pH Ur Specific [place] Coronavirus (PCR) 03/10/21 03/10/21 03/11/21 18:10 18:55 00:07 WBC RBC Hgb Hct MCV MCHC RDW Plt Count Lymph % (Auto) [place] % (Auto) Lymph # (Auto) [place] # (Auto) Seg Neutrophils % Seg Neuts % (Manual) Lymphocytes % (Manual) Monocytes % (Manual) Nucleated RBC % Seg Neutrophils # Seg Neutrophils # Man Lymphocytes # (Manual) Monocytes # (Manual) PT INR APTT D-Dimer Heparin Anti-Xa Level ABG pH 7.343 L POC ABG pCO2 POC ABG pO2 ABG pO2 60.4 L ABG HCO3 27.9 H ABG O2 Saturation 88.7 L ABG Base Excess ABG Hemoglobin ABG Oxyhemoglobin ABG Sodium ABG Potassium ABG Glucose Oxyhemoglobin 86.9 L Carboxyhemoglobin Sodium Potassium Chloride Carbon Dioxide BUN Creatinine Glucose POC Glucose 187 H 139 H Lactic Acid Calcium Phosphorus Magnesium Ferritin Lactate Dehydrogenase C-Reactive Protein NT-Pro-B Natriuret Pep Total Protein Albumin Triglycerides Arterial Blood Glucose Urine pH Ur Specific [place] Coronavirus (PCR) 03/11/21 03/11/21 03/11/21 02:09 04:28 08:06 WBC RBC Hgb Hct MCV MCHC RDW Plt Count Lymph % (Auto) [place] % (Auto) Lymph # (Auto) [place] # (Auto) Seg Neutrophils % Seg Neuts % (Manual) Lymphocytes % (Manual) Monocytes % (Manual) Nucleated RBC % Seg Neutrophils # Seg Neutrophils # Man Lymphocytes # (Manual) Monocytes # (Manual) PT INR APTT D-Dimer Heparin Anti-Xa Level ABG pH 7.277 L POC ABG pCO2 55.9 H POC ABG pO2 54.4 L ABG pO2 ABG HCO3 ABG O2 Saturation ABG Base Excess ABG Hemoglobin ABG Oxyhemoglobin 83.0 L ABG Sodium ABG Potassium 4.8 H ABG Glucose 180 H Oxyhemoglobin Carboxyhemoglobin Sodium Potassium Chloride Carbon Dioxide BUN 38 H Creatinine Glucose 249 H POC Glucose 278 H Lactic Acid Calcium Phosphorus Magnesium Ferritin Lactate Dehydrogenase C-Reactive Protein NT-Pro-B Natriuret Pep Total Protein Albumin 3.2 L Triglycerides Arterial Blood Glucose 180 H Urine pH Ur Specific [place] Coronavirus (PCR) 03/11/21 03/11/21 03/11/21 11:29 15:06 15:48 WBC RBC Hgb Hct MCV MCHC RDW Plt Count Lymph % (Auto) [place] % (Auto) Lymph # (Auto) [place] # (Auto) Seg Neutrophils % Seg Neuts % (Manual) Lymphocytes % (Manual) Monocytes % (Manual) Nucleated RBC % Seg Neutrophils # Seg Neutrophils # Man Lymphocytes # (Manual) Monocytes # (Manual) PT INR APTT D-Dimer Heparin Anti-Xa Level ABG pH 7.260 L POC ABG pCO2 POC ABG pO2 ABG pO2 53.5 L ABG HCO3 29.5 H ABG O2 Saturation 84.0 L ABG Base Excess ABG Hemoglobin ABG Oxyhemoglobin ABG Sodium ABG Potassium ABG Glucose Oxyhemoglobin 82.3 L Carboxyhemoglobin Sodium Potassium Chloride Carbon Dioxide BUN Creatinine Glucose POC Glucose 288 H 295 H Lactic Acid Calcium Phosphorus Magnesium Ferritin Lactate Dehydrogenase C-Reactive Protein NT-Pro-B Natriuret Pep Total Protein Albumin Triglycerides Arterial Blood Glucose Urine pH Ur Specific [place] Coronavirus (PCR) 03/12/21 03/12/21 03/12/21 00:01 05:24 08:03 WBC RBC Hgb Hct MCV MCHC RDW Plt Count Lymph % (Auto) [place] % (Auto) Lymph # (Auto) [place] # (Auto) Seg Neutrophils % Seg Neuts % (Manual) Lymphocytes % (Manual) Monocytes % (Manual) Nucleated RBC % Seg Neutrophils # Seg Neutrophils # Man Lymphocytes # (Manual) Monocytes # (Manual) PT INR APTT D-Dimer Heparin Anti-Xa Level ABG pH POC ABG pCO2 POC ABG pO2 ABG pO2 ABG HCO3 ABG O2 Saturation ABG Base Excess ABG Hemoglobin ABG Oxyhemoglobin ABG Sodium ABG Potassium ABG Glucose Oxyhemoglobin Carboxyhemoglobin Sodium 135 L Potassium Chloride Carbon Dioxide BUN 48 H Creatinine Glucose 358 H POC Glucose 304 H 310 H Lactic Acid Calcium Phosphorus Magnesium Ferritin Lactate Dehydrogenase C-Reactive Protein NT-Pro-B Natriuret Pep Total Protein 6.0 L Albumin 2.9 L Triglycerides Arterial Blood Glucose Urine pH Ur Specific [place] Coronavirus (PCR) 03/12/21 03/12/21 03/12/21 08:03 10:43 11:31 WBC 14.6 H RBC Hgb Hct MCV MCHC RDW Plt Count Lymph % (Auto) [place] % (Auto) Lymph # (Auto) [place] # (Auto) Seg Neutrophils % Seg Neuts % (Manual) Lymphocytes % (Manual) Monocytes % (Manual) Nucleated RBC % Seg Neutrophils # Seg Neutrophils # Man Lymphocytes # (Manual) Monocytes # (Manual) PT INR APTT D-Dimer Heparin Anti-Xa Level ABG pH 7.248 L POC ABG pCO2 POC ABG pO2 ABG pO2 73.7 L ABG HCO3 32.0 H ABG O2 Saturation 93.9 L ABG Base Excess ABG Hemoglobin ABG Oxyhemoglobin ABG Sodium ABG Potassium ABG Glucose Oxyhemoglobin 92.1 L Carboxyhemoglobin Sodium Potassium Chloride Carbon Dioxide BUN Creatinine Glucose POC Glucose 359 H Lactic Acid Calcium Phosphorus Magnesium Ferritin Lactate Dehydrogenase C-Reactive Protein NT-Pro-B Natriuret Pep Total Protein Albumin Triglycerides Arterial Blood Glucose Urine pH Ur Specific [place] Coronavirus (PCR) 03/12/21 03/12/21 03/13/21 17:20 21:54 00:02 WBC RBC Hgb Hct MCV MCHC RDW Plt Count Lymph % (Auto) [place] % (Auto) Lymph # (Auto) [place] # (Auto) Seg Neutrophils % Seg Neuts % (Manual) Lymphocytes % (Manual) Monocytes % (Manual) Nucleated RBC % Seg Neutrophils # Seg Neutrophils # Man Lymphocytes # (Manual) Monocytes # (Manual) PT INR APTT D-Dimer Heparin Anti-Xa Level ABG pH 7.238 L POC ABG pCO2 71.9 H POC ABG pO2 53.6 L ABG pO2 ABG HCO3 ABG O2 Saturation ABG Base Excess ABG Hemoglobin ABG Oxyhemoglobin 84.8 L ABG Sodium 134.2 L ABG Potassium 4.9 H ABG Glucose 306 H Oxyhemoglobin Carboxyhemoglobin Sodium Potassium Chloride Carbon Dioxide BUN Creatinine Glucose POC Glucose 374 H 308 H Lactic Acid Calcium Phosphorus Magnesium Ferritin Lactate Dehydrogenase C-Reactive Protein NT-Pro-B Natriuret Pep Total Protein Albumin Triglycerides Arterial Blood Glucose 306 H Urine pH Ur Specific [place] Coronavirus (PCR) 03/13/21 03/13/21 03/13/21 05:22 05:44 05:44 WBC 13.9 H RBC Hgb Hct MCV MCHC RDW Plt Count Lymph % (Auto) [place] % (Auto) Lymph # (Auto) [place] # (Auto) Seg Neutrophils % Seg Neuts % (Manual) Lymphocytes % (Manual) Monocytes % (Manual) Nucleated RBC % Seg Neutrophils # Seg Neutrophils # Man Lymphocytes # (Manual) Monocytes # (Manual) PT INR APTT D-Dimer 3567.97 H Heparin Anti-Xa Level ABG pH POC ABG pCO2 POC ABG pO2 ABG pO2 ABG HCO3 ABG O2 Saturation ABG Base Excess ABG Hemoglobin ABG Oxyhemoglobin ABG Sodium ABG Potassium ABG Glucose Oxyhemoglobin Carboxyhemoglobin Sodium Potassium Chloride Carbon Dioxide BUN Creatinine Glucose POC Glucose 316 H Lactic Acid Calcium Phosphorus Magnesium Ferritin Lactate Dehydrogenase C-Reactive Protein NT-Pro-B Natriuret Pep Total Protein Albumin Triglycerides Arterial Blood Glucose Urine pH Ur Specific [place] Coronavirus (PCR) 03/13/21 03/13/21 03/13/21 05:44 05:44 11:15 WBC RBC Hgb Hct MCV MCHC RDW Plt Count Lymph % (Auto) [place] % (Auto) Lymph # (Auto) [place] # (Auto) Seg Neutrophils % Seg Neuts % (Manual) Lymphocytes % (Manual) Monocytes % (Manual) Nucleated RBC % Seg Neutrophils # Seg Neutrophils # Man Lymphocytes # (Manual) Monocytes # (Manual) PT INR APTT D-Dimer Heparin Anti-Xa Level ABG pH 7.310 L POC ABG pCO2 POC ABG pO2 ABG pO2 52.3 L ABG HCO3 34.1 H ABG O2 Saturation 86.8 L ABG Base Excess 5.5 H ABG Hemoglobin 13.8 L ABG Oxyhemoglobin ABG Sodium ABG Potassium ABG Glucose Oxyhemoglobin 85.1 L Carboxyhemoglobin Sodium Potassium Chloride Carbon Dioxide BUN Creatinine Glucose POC Glucose Lactic Acid Calcium Phosphorus Magnesium Ferritin 858.7 H Lactate Dehydrogenase 348 H C-Reactive Protein 2.80 H NT-Pro-B Natriuret Pep Total Protein Albumin Triglycerides Arterial Blood Glucose Urine pH Ur Specific [place] Coronavirus (PCR) 03/13/21 03/13/21 03/13/21 11:21 15:47 19:23 WBC RBC Hgb Hct MCV MCHC RDW Plt Count Lymph % (Auto) [place] % (Auto) Lymph # (Auto) [place] # (Auto) Seg Neutrophils % Seg Neuts % (Manual) Lymphocytes % (Manual) Monocytes % (Manual) Nucleated RBC % Seg Neutrophils # Seg Neutrophils # Man Lymphocytes # (Manual) Monocytes # (Manual) PT INR APTT D-Dimer Heparin Anti-Xa Level ABG pH POC ABG pCO2 POC ABG pO2 ABG pO2 ABG HCO3 ABG O2 Saturation ABG Base Excess ABG Hemoglobin ABG Oxyhemoglobin ABG Sodium ABG Potassium ABG Glucose Oxyhemoglobin Carboxyhemoglobin Sodium 136 L Potassium 5.9 H Chloride Carbon Dioxide BUN 50 H Creatinine Glucose 397 H POC Glucose 322 H 317 H Lactic Acid Calcium Phosphorus Magnesium Ferritin Lactate Dehydrogenase C-Reactive Protein NT-Pro-B Natriuret Pep Total Protein Albumin Triglycerides Arterial Blood Glucose Urine pH Ur Specific [place] Coronavirus (PCR) 03/13/21 03/14/21 03/14/21 23:46 05:32 05:50 WBC 11.6 H RBC Hgb Hct MCV MCHC RDW Plt Count Lymph % (Auto) [place] % (Auto) Lymph # (Auto) [place] # (Auto) Seg Neutrophils % Seg Neuts % (Manual) Lymphocytes % (Manual) Monocytes % (Manual) Nucleated RBC % Seg Neutrophils # Seg Neutrophils # Man Lymphocytes # (Manual) Monocytes # (Manual) PT INR APTT D-Dimer Heparin Anti-Xa Level ABG pH POC ABG pCO2 POC ABG pO2 ABG pO2 ABG HCO3 ABG O2 Saturation ABG Base Excess ABG Hemoglobin ABG Oxyhemoglobin ABG Sodium ABG Potassium ABG Glucose Oxyhemoglobin Carboxyhemoglobin Sodium Potassium Chloride Carbon Dioxide BUN Creatinine Glucose POC Glucose 332 H 316 H Lactic Acid Calcium Phosphorus Magnesium Ferritin Lactate Dehydrogenase C-Reactive Protein NT-Pro-B Natriuret Pep Total Protein Albumin Triglycerides Arterial Blood Glucose Urine pH Ur Specific [place] Coronavirus (PCR) 03/14/21 03/14/21 03/14/21 05:50 11:33 16:53 WBC RBC Hgb Hct MCV MCHC RDW Plt Count Lymph % (Auto) [place] % (Auto) Lymph # (Auto) [place] # (Auto) Seg Neutrophils % Seg Neuts % (Manual) Lymphocytes % (Manual) Monocytes % (Manual) Nucleated RBC % Seg Neutrophils # Seg Neutrophils # Man Lymphocytes # (Manual) Monocytes # (Manual) PT INR APTT D-Dimer Heparin Anti-Xa Level ABG pH POC ABG pCO2 POC ABG pO2 ABG pO2 ABG HCO3 ABG O2 Saturation ABG Base Excess ABG Hemoglobin ABG Oxyhemoglobin ABG Sodium ABG Potassium ABG Glucose Oxyhemoglobin Carboxyhemoglobin Sodium Potassium 5.9 H Chloride Carbon Dioxide 31 H BUN 48 H Creatinine Glucose 380 H POC Glucose 315 H 235 H Lactic Acid Calcium Phosphorus Magnesium 3.40 H Ferritin Lactate Dehydrogenase C-Reactive Protein NT-Pro-B Natriuret Pep Total Protein Albumin Triglycerides Arterial Blood Glucose Urine pH Ur Specific [place] Coronavirus (PCR) 03/14/21 03/14/21 03/15/21 18:34 23:27 01:22 WBC RBC Hgb Hct 46.3 H MCV MCHC RDW Plt Count Lymph % (Auto) [place] % (Auto) Lymph # (Auto) [place] # (Auto) Seg Neutrophils % Seg Neuts % (Manual) Lymphocytes % (Manual) Monocytes % (Manual) Nucleated RBC % Seg Neutrophils # Seg Neutrophils # Man Lymphocytes # (Manual) Monocytes # (Manual) PT INR APTT D-Dimer Heparin Anti-Xa Level ABG pH POC ABG pCO2 POC ABG pO2 ABG pO2 ABG HCO3 ABG O2 Saturation ABG Base Excess ABG Hemoglobin ABG Oxyhemoglobin ABG Sodium ABG Potassium ABG Glucose Oxyhemoglobin Carboxyhemoglobin Sodium 146 H Potassium Chloride Carbon Dioxide 34 H BUN 49 H Creatinine Glucose 285 H POC Glucose 203 H Lactic Acid Calcium Phosphorus Magnesium Ferritin Lactate Dehydrogenase C-Reactive Protein NT-Pro-B Natriuret Pep Total Protein Albumin Triglycerides Arterial Blood Glucose Urine pH Ur Specific [place] Coronavirus (PCR) 03/15/21 03/15/21 03/15/21 04:00 06:06 06:06 WBC RBC Hgb Hct MCV MCHC RDW Plt Count Lymph % (Auto) [place] % (Auto) Lymph # (Auto) [place] # (Auto) Seg Neutrophils % Seg Neuts % (Manual) Lymphocytes % (Manual) Monocytes % (Manual) Nucleated RBC % Seg Neutrophils # Seg Neutrophils # Man Lymphocytes # (Manual) Monocytes # (Manual) PT INR APTT D-Dimer 1781.79 H Heparin Anti-Xa Level ABG pH POC ABG pCO2 POC ABG pO2 ABG pO2 ABG HCO3 ABG O2 Saturation ABG Base Excess ABG Hemoglobin ABG Oxyhemoglobin ABG Sodium ABG Potassium ABG Glucose Oxyhemoglobin Carboxyhemoglobin Sodium 148 H Potassium 5.7 H D Chloride 108.0 H Carbon Dioxide 31 H BUN 46 H Creatinine Glucose 139 H POC Glucose Lactic Acid Calcium Phosphorus 4.80 H D Magnesium 3.00 H Ferritin 976.4 H Lactate Dehydrogenase 630 H C-Reactive Protein NT-Pro-B Natriuret Pep Total Protein Albumin Triglycerides Arterial Blood Glucose Urine pH Ur Specific [place] Coronavirus (PCR) 03/15/21 03/15/21 03/15/21 11:56 14:05 17:09 WBC RBC Hgb Hct MCV MCHC RDW Plt Count Lymph % (Auto) [place] % (Auto) Lymph # (Auto) [place] # (Auto) Seg Neutrophils % Seg Neuts % (Manual) Lymphocytes % (Manual) Monocytes % (Manual) Nucleated RBC % Seg Neutrophils # Seg Neutrophils # Man Lymphocytes # (Manual) Monocytes # (Manual) PT INR APTT D-Dimer Heparin Anti-Xa Level ABG pH POC ABG pCO2 POC ABG pO2 ABG pO2 52.1 L ABG HCO3 36.6 H ABG O2 Saturation 87.6 L ABG Base Excess 9.5 H ABG Hemoglobin ABG Oxyhemoglobin ABG Sodium ABG Potassium ABG Glucose Oxyhemoglobin 85.7 L Carboxyhemoglobin Sodium Potassium Chloride Carbon Dioxide BUN Creatinine Glucose POC Glucose 219 H 263 H Lactic Acid Calcium Phosphorus Magnesium Ferritin Lactate Dehydrogenase C-Reactive Protein NT-Pro-B Natriuret Pep Total Protein Albumin Triglycerides Arterial Blood Glucose Urine pH Ur Specific [place] Coronavirus (PCR) 03/16/21 03/16/21 03/16/21 00:32 04:11 04:11 WBC 11.9 H RBC Hgb Hct MCV MCHC 30 L RDW Plt Count Lymph % (Auto) [place] % (Auto) Lymph # (Auto) [place] # (Auto) Seg Neutrophils % Seg Neuts % (Manual) Lymphocytes % (Manual) Monocytes % (Manual) Nucleated RBC % Seg Neutrophils # Seg Neutrophils # Man Lymphocytes # (Manual) Monocytes # (Manual) PT INR APTT D-Dimer Heparin Anti-Xa Level ABG pH POC ABG pCO2 POC ABG pO2 ABG pO2 ABG HCO3 ABG O2 Saturation ABG Base Excess ABG Hemoglobin ABG Oxyhemoglobin ABG Sodium ABG Potassium ABG Glucose Oxyhemoglobin Carboxyhemoglobin Sodium 151 H Potassium Chloride Carbon Dioxide 35 H BUN 48 H Creatinine Glucose 152 H POC Glucose 165 H Lactic Acid Calcium Phosphorus Magnesium Ferritin Lactate Dehydrogenase C-Reactive Protein NT-Pro-B Natriuret Pep Total Protein Albumin Triglycerides Arterial Blood Glucose Urine pH Ur Specific [place] Coronavirus (PCR) 03/16/21 03/16/21 03/16/21 04:11 05:26 11:35 WBC RBC Hgb Hct MCV MCHC RDW Plt Count Lymph % (Auto) [place] % (Auto) Lymph # (Auto) [place] # (Auto) Seg Neutrophils % Seg Neuts % (Manual) Lymphocytes % (Manual) Monocytes % (Manual) Nucleated RBC % Seg Neutrophils # Seg Neutrophils # Man Lymphocytes # (Manual) Monocytes # (Manual) PT INR APTT D-Dimer Heparin Anti-Xa Level ABG pH POC ABG pCO2 POC ABG pO2 ABG pO2 ABG HCO3 ABG O2 Saturation ABG Base Excess ABG Hemoglobin ABG Oxyhemoglobin ABG Sodium ABG Potassium ABG Glucose Oxyhemoglobin Carboxyhemoglobin Sodium Potassium Chloride Carbon Dioxide BUN Creatinine Glucose POC Glucose 162 H 187 H Lactic Acid Calcium Phosphorus Magnesium Ferritin Lactate Dehydrogenase C-Reactive Protein NT-Pro-B Natriuret Pep Total Protein Albumin Triglycerides 267 H Arterial Blood Glucose Urine pH Ur Specific [place] Coronavirus (PCR) 03/16/21 03/16/21 03/16/21 17:29 22:25 23:22 WBC RBC Hgb Hct MCV MCHC RDW Plt Count Lymph % (Auto) [place] % (Auto) Lymph # (Auto) [place] # (Auto) Seg Neutrophils % Seg Neuts % (Manual) Lymphocytes % (Manual) Monocytes % (Manual) Nucleated RBC % Seg Neutrophils # Seg Neutrophils # Man Lymphocytes # (Manual) Monocytes # (Manual) PT INR APTT D-Dimer Heparin Anti-Xa Level ABG pH POC ABG pCO2 POC ABG pO2 ABG pO2 ABG HCO3 ABG O2 Saturation ABG Base Excess ABG Hemoglobin ABG Oxyhemoglobin ABG Sodium ABG Potassium ABG Glucose Oxyhemoglobin Carboxyhemoglobin Sodium Potassium Chloride Carbon Dioxide BUN Creatinine Glucose POC Glucose 237 H 165 H 189 H Lactic Acid Calcium Phosphorus Magnesium Ferritin Lactate Dehydrogenase C-Reactive Protein NT-Pro-B Natriuret Pep Total Protein Albumin Triglycerides Arterial Blood Glucose Urine pH Ur Specific [place] Coronavirus (PCR) 03/17/21 03/17/21 03/17/21 04:40 04:40 04:40 WBC 14.1 H RBC Hgb Hct MCV MCHC RDW 15.3 H Plt Count Lymph % (Auto) 12.6 L [place] % (Auto) 11.3 H Lymph # (Auto) [place] # (Auto) 1.6 H Seg Neutrophils % 74.9 H Seg Neuts % (Manual) Lymphocytes % (Manual) Monocytes % (Manual) Nucleated RBC % Seg Neutrophils # 10.5 H Seg Neutrophils # Man Lymphocytes # (Manual) Monocytes # (Manual) PT INR APTT D-Dimer 1359.12 H Heparin Anti-Xa Level ABG pH POC ABG pCO2 POC ABG pO2 ABG pO2 ABG HCO3 ABG O2 Saturation ABG Base Excess ABG Hemoglobin ABG Oxyhemoglobin ABG Sodium ABG Potassium ABG Glucose Oxyhemoglobin Carboxyhemoglobin Sodium 148 H Potassium Chloride 107.5 H Carbon Dioxide 33 H BUN 42 H Creatinine Glucose 183 H POC Glucose Lactic Acid Calcium Phosphorus Magnesium 2.70 H Ferritin Lactate Dehydrogenase C-Reactive Protein NT-Pro-B Natriuret Pep Total Protein Albumin Triglycerides Arterial Blood Glucose Urine pH Ur Specific [place] Coronavirus (PCR) 03/17/21 03/17/21 03/17/21 05:53 11:05 11:51 WBC RBC Hgb Hct MCV MCHC RDW Plt Count Lymph % (Auto) [place] % (Auto) Lymph # (Auto) [place] # (Auto) Seg Neutrophils % Seg Neuts % (Manual) Lymphocytes % (Manual) Monocytes % (Manual) Nucleated RBC % Seg Neutrophils # Seg Neutrophils # Man Lymphocytes # (Manual) Monocytes # (Manual) PT INR APTT D-Dimer Heparin Anti-Xa Level ABG pH POC ABG pCO2 POC ABG pO2 ABG pO2 ABG HCO3 35.7 H ABG O2 Saturation ABG Base Excess 8.7 H ABG Hemoglobin ABG Oxyhemoglobin ABG Sodium ABG Potassium ABG Glucose Oxyhemoglobin 94.2 L Carboxyhemoglobin Sodium Potassium Chloride Carbon Dioxide BUN Creatinine Glucose POC Glucose 176 H 197 H Lactic Acid Calcium Phosphorus Magnesium Ferritin Lactate Dehydrogenase C-Reactive Protein NT-Pro-B Natriuret Pep Total Protein Albumin Triglycerides Arterial Blood Glucose Urine pH Ur Specific [place] Coronavirus (PCR) 03/17/21 03/17/21 03/17/21 16:54 21:10 23:33 WBC RBC Hgb Hct MCV MCHC RDW Plt Count Lymph % (Auto) [place] % (Auto) Lymph # (Auto) [place] # (Auto) Seg Neutrophils % Seg Neuts % (Manual) Lymphocytes % (Manual) Monocytes % (Manual) Nucleated RBC % Seg Neutrophils # Seg Neutrophils # Man Lymphocytes # (Manual) Monocytes # (Manual) PT INR APTT D-Dimer Heparin Anti-Xa Level ABG pH POC ABG pCO2 POC ABG pO2 ABG pO2 ABG HCO3 ABG O2 Saturation ABG Base Excess ABG Hemoglobin ABG Oxyhemoglobin ABG Sodium ABG Potassium ABG Glucose Oxyhemoglobin Carboxyhemoglobin Sodium Potassium Chloride Carbon Dioxide BUN Creatinine Glucose POC Glucose 135 H 160 H 138 H Lactic Acid Calcium Phosphorus Magnesium Ferritin Lactate Dehydrogenase C-Reactive Protein NT-Pro-B Natriuret Pep Total Protein Albumin Triglycerides Arterial Blood Glucose Urine pH Ur Specific [place] Coronavirus (PCR) 03/18/21 03/18/21 03/18/21 04:18 04:50 05:43 WBC RBC Hgb Hct MCV MCHC RDW Plt Count Lymph % (Auto) [place] % (Auto) Lymph # (Auto) [place] # (Auto) Seg Neutrophils % Seg Neuts % (Manual) Lymphocytes % (Manual) Monocytes % (Manual) Nucleated RBC % Seg Neutrophils # Seg Neutrophils # Man Lymphocytes # (Manual) Monocytes # (Manual) PT INR APTT D-Dimer Heparin Anti-Xa Level ABG pH POC ABG pCO2 POC ABG pO2 ABG pO2 59.8 L ABG HCO3 36.5 H ABG O2 Saturation 90.7 L ABG Base Excess 9.4 H ABG Hemoglobin 12.0 L ABG Oxyhemoglobin ABG Sodium ABG Potassium ABG Glucose Oxyhemoglobin 88.9 L Carboxyhemoglobin Sodium Potassium Chloride 107.2 H Carbon Dioxide 34 H BUN 38 H Creatinine 0.7 L Glucose 136 H POC Glucose 128 H Lactic Acid Calcium Phosphorus Magnesium Ferritin Lactate Dehydrogenase C-Reactive Protein NT-Pro-B Natriuret Pep Total Protein Albumin Triglycerides Arterial Blood Glucose Urine pH Ur Specific [place] Coronavirus (PCR) 03/18/21 03/18/21 03/18/21 11:20 17:35 23:35 WBC RBC Hgb Hct MCV MCHC RDW Plt Count Lymph % (Auto) [place] % (Auto) Lymph # (Auto) [place] # (Auto) Seg Neutrophils % Seg Neuts % (Manual) Lymphocytes % (Manual) Monocytes % (Manual) Nucleated RBC % Seg Neutrophils # Seg Neutrophils # Man Lymphocytes # (Manual) Monocytes # (Manual) PT INR APTT D-Dimer Heparin Anti-Xa Level ABG pH POC ABG pCO2 POC ABG pO2 ABG pO2 70.7 L ABG HCO3 33.6 H ABG O2 Saturation ABG Base Excess 8.0 H ABG Hemoglobin ABG Oxyhemoglobin ABG Sodium ABG Potassium ABG Glucose Oxyhemoglobin 93.7 L Carboxyhemoglobin Sodium Potassium Chloride Carbon Dioxide BUN Creatinine Glucose POC Glucose 189 H 144 H Lactic Acid Calcium Phosphorus Magnesium Ferritin Lactate Dehydrogenase C-Reactive Protein NT-Pro-B Natriuret Pep Total Protein Albumin Triglycerides Arterial Blood Glucose Urine pH Ur Specific [place] Coronavirus (PCR) 03/19/21 03/19/21 03/19/21 02:35 04:20 04:20 WBC 14.0 H RBC Hgb Hct MCV MCHC RDW Plt Count Lymph % (Auto) [place] % (Auto) Lymph # (Auto) [place] # (Auto) Seg Neutrophils % Seg Neuts % (Manual) Lymphocytes % (Manual) Monocytes % (Manual) Nucleated RBC % Seg Neutrophils # Seg Neutrophils # Man Lymphocytes # (Manual) Monocytes # (Manual) PT INR APTT D-Dimer Heparin Anti-Xa Level ABG pH POC ABG pCO2 POC ABG pO2 ABG pO2 ABG HCO3 32.0 H ABG O2 Saturation ABG Base Excess 5.2 H ABG Hemoglobin 13.6 L ABG Oxyhemoglobin ABG Sodium ABG Potassium ABG Glucose Oxyhemoglobin 94.6 L Carboxyhemoglobin Sodium 146 H Potassium Chloride 109.3 H Carbon Dioxide BUN 36 H Creatinine Glucose 203 H POC Glucose Lactic Acid Calcium Phosphorus Magnesium Ferritin Lactate Dehydrogenase C-Reactive Protein NT-Pro-B Natriuret Pep Total Protein Albumin Triglycerides 254 H Arterial Blood Glucose Urine pH Ur Specific [place] Coronavirus (PCR) 03/19/21 03/19/21 03/19/21 05:45 11:36 23:51 WBC RBC Hgb Hct MCV MCHC RDW Plt Count Lymph % (Auto) [place] % (Auto) Lymph # (Auto) [place] # (Auto) Seg Neutrophils % Seg Neuts % (Manual) Lymphocytes % (Manual) Monocytes % (Manual) Nucleated RBC % Seg Neutrophils # Seg Neutrophils # Man Lymphocytes # (Manual) Monocytes # (Manual) PT INR APTT D-Dimer Heparin Anti-Xa Level ABG pH POC ABG pCO2 POC ABG pO2 ABG pO2 ABG HCO3 ABG O2 Saturation ABG Base Excess ABG Hemoglobin ABG Oxyhemoglobin ABG Sodium ABG Potassium ABG Glucose Oxyhemoglobin Carboxyhemoglobin Sodium Potassium Chloride Carbon Dioxide BUN Creatinine Glucose POC Glucose 164 H 172 H 140 H Lactic Acid Calcium Phosphorus Magnesium Ferritin Lactate Dehydrogenase C-Reactive Protein NT-Pro-B Natriuret Pep Total Protein Albumin Triglycerides Arterial Blood Glucose Urine pH Ur Specific [place] Coronavirus (PCR) 03/20/21 03/20/21 03/20/21 03:29 04:45 04:45 WBC RBC Hgb Hct MCV 95 H MCHC RDW 15.7 H Plt Count Lymph % (Auto) [place] % (Auto) Lymph # (Auto) [place] # (Auto) Seg Neutrophils % Seg Neuts % (Manual) Lymphocytes % (Manual) Monocytes % (Manual) Nucleated RBC % Seg Neutrophils # Seg Neutrophils # Man Lymphocytes # (Manual) Monocytes # (Manual) PT INR APTT D-Dimer Heparin Anti-Xa Level ABG pH 7.349 L POC ABG pCO2 POC ABG pO2 ABG pO2 ABG HCO3 33.7 H ABG O2 Saturation ABG Base Excess 6.4 H ABG Hemoglobin 11.8 L ABG Oxyhemoglobin ABG Sodium ABG Potassium ABG Glucose Oxyhemoglobin 93.9 L Carboxyhemoglobin Sodium 146 H Potassium 5.5 H Chloride 111.1 H Carbon Dioxide BUN 34 H Creatinine 0.7 L Glucose 145 H POC Glucose Lactic Acid Calcium Phosphorus Magnesium 2.50 H Ferritin Lactate Dehydrogenase C-Reactive Protein NT-Pro-B Natriuret Pep Total Protein Albumin Triglycerides Arterial Blood Glucose Urine pH Ur Specific [place] Coronavirus (PCR) 03/20/21 03/20/21 03/20/21 05:41 09:08 11:54 WBC RBC Hgb Hct MCV MCHC RDW Plt Count Lymph % (Auto) [place] % (Auto) Lymph # (Auto) [place] # (Auto) Seg Neutrophils % Seg Neuts % (Manual) Lymphocytes % (Manual) Monocytes % (Manual) Nucleated RBC % Seg Neutrophils # Seg Neutrophils # Man Lymphocytes # (Manual) Monocytes # (Manual) PT INR APTT D-Dimer Heparin Anti-Xa Level ABG pH POC ABG pCO2 POC ABG pO2 ABG pO2 ABG HCO3 ABG O2 Saturation ABG Base Excess ABG Hemoglobin ABG Oxyhemoglobin ABG Sodium ABG Potassium ABG Glucose Oxyhemoglobin Carboxyhemoglobin Sodium Potassium Chloride Carbon Dioxide BUN Creatinine Glucose POC Glucose 108 H 132 H 162 H Lactic Acid Calcium Phosphorus Magnesium Ferritin Lactate Dehydrogenase C-Reactive Protein NT-Pro-B Natriuret Pep Total Protein Albumin Triglycerides Arterial Blood Glucose Urine pH Ur Specific [place] Coronavirus (PCR) 03/20/21 03/21/21 03/21/21 17:28 00:31 04:44 WBC RBC Hgb Hct MCV MCHC RDW Plt Count Lymph % (Auto) [place] % (Auto) Lymph # (Auto) [place] # (Auto) Seg Neutrophils % Seg Neuts % (Manual) Lymphocytes % (Manual) Monocytes % (Manual) Nucleated RBC % Seg Neutrophils # Seg Neutrophils # Man Lymphocytes # (Manual) Monocytes # (Manual) PT INR APTT D-Dimer Heparin Anti-Xa Level ABG pH POC ABG pCO2 POC ABG pO2 ABG pO2 ABG HCO3 ABG O2 Saturation ABG Base Excess ABG Hemoglobin ABG Oxyhemoglobin ABG Sodium ABG Potassium ABG Glucose Oxyhemoglobin Carboxyhemoglobin Sodium Potassium Chloride 108.3 H Carbon Dioxide BUN 30 H Creatinine 0.7 L Glucose POC Glucose 160 H 122 H Lactic Acid Calcium Phosphorus Magnesium Ferritin Lactate Dehydrogenase C-Reactive Protein NT-Pro-B Natriuret Pep Total Protein Albumin Triglycerides Arterial Blood Glucose Urine pH Ur Specific [place] Coronavirus (PCR) 03/21/21 03/21/21 03/21/21 09:18 10:09 13:20 WBC RBC Hgb Hct MCV MCHC RDW Plt Count Lymph % (Auto) [place] % (Auto) Lymph # (Auto) [place] # (Auto) Seg Neutrophils % Seg Neuts % (Manual) Lymphocytes % (Manual) Monocytes % (Manual) Nucleated RBC % Seg Neutrophils # Seg Neutrophils # Man Lymphocytes # (Manual) Monocytes # (Manual) PT INR APTT D-Dimer Heparin Anti-Xa Level ABG pH POC ABG pCO2 POC ABG pO2 ABG pO2 60.7 L ABG HCO3 30.6 H ABG O2 Saturation 93.6 L ABG Base Excess 5.3 H ABG Hemoglobin ABG Oxyhemoglobin ABG Sodium ABG Potassium ABG Glucose Oxyhemoglobin 91.7 L Carboxyhemoglobin Sodium Potassium Chloride Carbon Dioxide BUN Creatinine Glucose POC Glucose 169 H 122 H Lactic Acid Calcium Phosphorus Magnesium Ferritin Lactate Dehydrogenase C-Reactive Protein NT-Pro-B Natriuret Pep Total Protein Albumin Triglycerides Arterial Blood Glucose Urine pH Ur Specific [place] Coronavirus (PCR) 03/21/21 03/21/21 03/21/21 17:25 22:41 23:52 WBC RBC Hgb Hct MCV MCHC RDW Plt Count Lymph % (Auto) [place] % (Auto) Lymph # (Auto) [place] # (Auto) Seg Neutrophils % Seg Neuts % (Manual) Lymphocytes % (Manual) Monocytes % (Manual) Nucleated RBC % Seg Neutrophils # Seg Neutrophils # Man Lymphocytes # (Manual) Monocytes # (Manual) PT INR APTT D-Dimer Heparin Anti-Xa Level ABG pH POC ABG pCO2 POC ABG pO2 ABG pO2 ABG HCO3 ABG O2 Saturation ABG Base Excess ABG Hemoglobin ABG Oxyhemoglobin ABG Sodium ABG Potassium ABG Glucose Oxyhemoglobin Carboxyhemoglobin Sodium Potassium Chloride Carbon Dioxide BUN Creatinine Glucose POC Glucose 121 H 139 H 140 H Lactic Acid Calcium Phosphorus Magnesium Ferritin Lactate Dehydrogenase C-Reactive Protein NT-Pro-B Natriuret Pep Total Protein Albumin Triglycerides Arterial Blood Glucose Urine pH Ur Specific [place] Coronavirus (PCR) 03/22/21 03/22/21 03/22/21 05:58 07:26 07:26 WBC RBC Hgb Hct MCV MCHC 31 L RDW 16.1 H Plt Count Lymph % (Auto) [place] % (Auto) Lymph # (Auto) [place] # (Auto) Seg Neutrophils % Seg Neuts % (Manual) Lymphocytes % (Manual) Monocytes % (Manual) Nucleated RBC % Seg Neutrophils # Seg Neutrophils # Man Lymphocytes # (Manual) Monocytes # (Manual) PT INR APTT D-Dimer Heparin Anti-Xa Level ABG pH POC ABG pCO2 POC ABG pO2 ABG pO2 ABG HCO3 ABG O2 Saturation ABG Base Excess ABG Hemoglobin ABG Oxyhemoglobin ABG Sodium ABG Potassium ABG Glucose Oxyhemoglobin Carboxyhemoglobin Sodium Potassium Chloride 108.5 H Carbon Dioxide BUN 44 H Creatinine Glucose 120 H POC Glucose 131 H Lactic Acid Calcium Phosphorus 5.80 H Magnesium 2.80 H Ferritin Lactate Dehydrogenase C-Reactive Protein NT-Pro-B Natriuret Pep Total Protein Albumin Triglycerides 305 H Arterial Blood Glucose Urine pH Ur Specific [place] Coronavirus (PCR) 03/22/21 03/22/21 03/22/21 09:38 11:15 16:01 WBC RBC Hgb Hct MCV MCHC RDW Plt Count Lymph % (Auto) [place] % (Auto) Lymph # (Auto) [place] # (Auto) Seg Neutrophils % Seg Neuts % (Manual) Lymphocytes % (Manual) Monocytes % (Manual) Nucleated RBC % Seg Neutrophils # Seg Neutrophils # Man Lymphocytes # (Manual) Monocytes # (Manual) PT INR APTT D-Dimer Heparin Anti-Xa Level ABG pH POC ABG pCO2 POC ABG pO2 ABG pO2 70.0 L ABG HCO3 30.0 H ABG O2 Saturation 94.6 L ABG Base Excess 3.6 H ABG Hemoglobin 13.5 L ABG Oxyhemoglobin ABG Sodium ABG Potassium ABG Glucose Oxyhemoglobin 92.5 L Carboxyhemoglobin Sodium Potassium Chloride Carbon Dioxide BUN Creatinine Glucose POC Glucose 186 H 148 H Lactic Acid Calcium Phosphorus Magnesium Ferritin Lactate Dehydrogenase C-Reactive Protein NT-Pro-B Natriuret Pep Total Protein Albumin Triglycerides Arterial Blood Glucose Urine pH Ur Specific [place] Coronavirus (PCR) 03/22/21 03/22/21 03/23/21 21:13 23:48 07:04 WBC 11.7 H RBC Hgb Hct MCV 95 H MCHC RDW 16.1 H Plt Count Lymph % (Auto) [place] % (Auto) Lymph # (Auto) [place] # (Auto) Seg Neutrophils % Seg Neuts % (Manual) Lymphocytes % (Manual) Monocytes % (Manual) Nucleated RBC % Seg Neutrophils # Seg Neutrophils # Man Lymphocytes # (Manual) Monocytes # (Manual) PT INR APTT D-Dimer Heparin Anti-Xa Level ABG pH POC ABG pCO2 POC ABG pO2 ABG pO2 ABG HCO3 ABG O2 Saturation ABG Base Excess ABG Hemoglobin ABG Oxyhemoglobin ABG Sodium ABG Potassium ABG Glucose Oxyhemoglobin Carboxyhemoglobin Sodium Potassium Chloride Carbon Dioxide BUN Creatinine Glucose POC Glucose 121 H 114 H Lactic Acid Calcium Phosphorus Magnesium Ferritin Lactate Dehydrogenase C-Reactive Protein NT-Pro-B Natriuret Pep Total Protein Albumin Triglycerides Arterial Blood Glucose Urine pH Ur Specific [place] Coronavirus (PCR) 03/23/21 03/23/21 03/23/21 07:04 08:35 11:19 WBC RBC Hgb Hct MCV MCHC RDW Plt Count Lymph % (Auto) [place] % (Auto) Lymph # (Auto) [place] # (Auto) Seg Neutrophils % Seg Neuts % (Manual) Lymphocytes % (Manual) Monocytes % (Manual) Nucleated RBC % Seg Neutrophils # Seg Neutrophils # Man Lymphocytes # (Manual) Monocytes # (Manual) PT INR APTT D-Dimer Heparin Anti-Xa Level ABG pH 7.345 L POC ABG pCO2 POC ABG pO2 ABG pO2 167.9 H ABG HCO3 32.2 H ABG O2 Saturation ABG Base Excess 4.8 H ABG Hemoglobin 13.4 L ABG Oxyhemoglobin ABG Sodium ABG Potassium ABG Glucose Oxyhemoglobin Carboxyhemoglobin Sodium 148 H Potassium Chloride 111.3 H Carbon Dioxide 31 H BUN 31 H Creatinine Glucose 131 H POC Glucose 165 H Lactic Acid Calcium Phosphorus Magnesium 2.50 H Ferritin Lactate Dehydrogenase C-Reactive Protein NT-Pro-B Natriuret Pep Total Protein Albumin Triglycerides Arterial Blood Glucose Urine pH Ur Specific [place] Coronavirus (PCR) 03/23/21 03/23/21 03/24/21 16:48 20:52 00:07 WBC RBC Hgb Hct MCV MCHC RDW Plt Count Lymph % (Auto) [place] % (Auto) Lymph # (Auto) [place] # (Auto) Seg Neutrophils % Seg Neuts % (Manual) Lymphocytes % (Manual) Monocytes % (Manual) Nucleated RBC % Seg Neutrophils # Seg Neutrophils # Man Lymphocytes # (Manual) Monocytes # (Manual) PT INR APTT D-Dimer Heparin Anti-Xa Level ABG pH POC ABG pCO2 POC ABG pO2 ABG pO2 ABG HCO3 ABG O2 Saturation ABG Base Excess ABG Hemoglobin ABG Oxyhemoglobin ABG Sodium ABG Potassium ABG Glucose Oxyhemoglobin Carboxyhemoglobin Sodium Potassium Chloride Carbon Dioxide BUN Creatinine Glucose POC Glucose 160 H 127 H 147 H Lactic Acid Calcium Phosphorus Magnesium Ferritin Lactate Dehydrogenase C-Reactive Protein NT-Pro-B Natriuret Pep Total Protein Albumin Triglycerides Arterial Blood Glucose Urine pH Ur Specific [place] Coronavirus (PCR) 03/24/21 03/24/21 03/24/21 04:34 04:34 05:20 WBC 13.3 H RBC Hgb Hct MCV MCHC 31 L RDW 16.1 H Plt Count Lymph % (Auto) [place] % (Auto) Lymph # (Auto) [place] # (Auto) Seg Neutrophils % Seg Neuts % (Manual) Lymphocytes % (Manual) Monocytes % (Manual) Nucleated RBC % Seg Neutrophils # Seg Neutrophils # Man Lymphocytes # (Manual) Monocytes # (Manual) PT INR APTT D-Dimer Heparin Anti-Xa Level ABG pH POC ABG pCO2 POC ABG pO2 ABG pO2 ABG HCO3 ABG O2 Saturation ABG Base Excess ABG Hemoglobin ABG Oxyhemoglobin ABG Sodium ABG Potassium ABG Glucose Oxyhemoglobin Carboxyhemoglobin Sodium Potassium 5.2 H Chloride Carbon Dioxide BUN 28 H Creatinine 0.7 L Glucose 152 H POC Glucose 141 H Lactic Acid Calcium Phosphorus Magnesium Ferritin Lactate Dehydrogenase C-Reactive Protein NT-Pro-B Natriuret Pep Total Protein Albumin Triglycerides Arterial Blood Glucose Urine pH Ur Specific [place] Coronavirus (PCR) 03/24/21 03/24/21 03/24/21 09:40 11:38 16:45 WBC RBC Hgb Hct MCV MCHC RDW Plt Count Lymph % (Auto) [place] % (Auto) Lymph # (Auto) [place] # (Auto) Seg Neutrophils % Seg Neuts % (Manual) Lymphocytes % (Manual) Monocytes % (Manual) Nucleated RBC % Seg Neutrophils # Seg Neutrophils # Man Lymphocytes # (Manual) Monocytes # (Manual) PT INR APTT D-Dimer Heparin Anti-Xa Level ABG pH POC ABG pCO2 POC ABG pO2 ABG pO2 ABG HCO3 ABG O2 Saturation ABG Base Excess ABG Hemoglobin ABG Oxyhemoglobin ABG Sodium ABG Potassium ABG Glucose Oxyhemoglobin Carboxyhemoglobin Sodium Potassium Chloride Carbon Dioxide BUN Creatinine Glucose POC Glucose 126 H 136 H 118 H Lactic Acid Calcium Phosphorus Magnesium Ferritin Lactate Dehydrogenase C-Reactive Protein NT-Pro-B Natriuret Pep Total Protein Albumin Triglycerides Arterial Blood Glucose Urine pH Ur Specific [place] Coronavirus (PCR) 03/24/21 03/24/21 03/25/21 21:03 23:49 04:32 WBC RBC Hgb Hct MCV MCHC RDW 16.1 H Plt Count 121 L Lymph % (Auto) [place] % (Auto) Lymph # (Auto) [place] # (Auto) Seg Neutrophils % Seg Neuts % (Manual) Lymphocytes % (Manual) Monocytes % (Manual) Nucleated RBC % Seg Neutrophils # Seg Neutrophils # Man Lymphocytes # (Manual) Monocytes # (Manual) PT INR APTT D-Dimer Heparin Anti-Xa Level ABG pH POC ABG pCO2 POC ABG pO2 ABG pO2 ABG HCO3 ABG O2 Saturation ABG Base Excess ABG Hemoglobin ABG Oxyhemoglobin ABG Sodium ABG Potassium ABG Glucose Oxyhemoglobin Carboxyhemoglobin Sodium Potassium Chloride Carbon Dioxide BUN Creatinine Glucose POC Glucose 116 H 125 H Lactic Acid Calcium Phosphorus Magnesium Ferritin Lactate Dehydrogenase C-Reactive Protein NT-Pro-B Natriuret Pep Total Protein Albumin Triglycerides Arterial Blood Glucose Urine pH Ur Specific [place] Coronavirus (PCR) 03/25/21 03/25/21 03/25/21 04:32 05:21 09:29 WBC RBC Hgb Hct MCV MCHC RDW Plt Count Lymph % (Auto) [place] % (Auto) Lymph # (Auto) [place] # (Auto) Seg Neutrophils % Seg Neuts % (Manual) Lymphocytes % (Manual) Monocytes % (Manual) Nucleated RBC % Seg Neutrophils # Seg Neutrophils # Man Lymphocytes # (Manual) Monocytes # (Manual) PT INR APTT D-Dimer Heparin Anti-Xa Level ABG pH POC ABG pCO2 POC ABG pO2 ABG pO2 ABG HCO3 ABG O2 Saturation ABG Base Excess ABG Hemoglobin ABG Oxyhemoglobin ABG Sodium ABG Potassium ABG Glucose Oxyhemoglobin Carboxyhemoglobin Sodium 135 L D Potassium Chloride Carbon Dioxide BUN 25 H Creatinine 0.7 L Glucose 168 H POC Glucose 149 H 115 H Lactic Acid Calcium Phosphorus Magnesium Ferritin Lactate Dehydrogenase C-Reactive Protein NT-Pro-B Natriuret Pep Total Protein Albumin Triglycerides Arterial Blood Glucose Urine pH Ur Specific [place] Coronavirus (PCR) 03/25/21 03/25/21 03/25/21 12:26 12:35 23:53 WBC RBC Hgb Hct MCV MCHC RDW Plt Count Lymph % (Auto) [place] % (Auto) Lymph # (Auto) [place] # (Auto) Seg Neutrophils % Seg Neuts % (Manual) Lymphocytes % (Manual) Monocytes % (Manual) Nucleated RBC % Seg Neutrophils # Seg Neutrophils # Man Lymphocytes # (Manual) Monocytes # (Manual) PT INR APTT D-Dimer Heparin Anti-Xa Level ABG pH POC ABG pCO2 POC ABG pO2 ABG pO2 100.5 H ABG HCO3 33.6 H ABG O2 Saturation ABG Base Excess 6.4 H ABG Hemoglobin 12.0 L ABG Oxyhemoglobin ABG Sodium ABG Potassium ABG Glucose Oxyhemoglobin Carboxyhemoglobin Sodium Potassium Chloride Carbon Dioxide BUN Creatinine Glucose POC Glucose 108 H 137 H Lactic Acid Calcium Phosphorus Magnesium Ferritin Lactate Dehydrogenase C-Reactive Protein NT-Pro-B Natriuret Pep Total Protein Albumin Triglycerides Arterial Blood Glucose Urine pH Ur Specific [place] Coronavirus (PCR) 03/26/21 03/26/21 03/26/21 05:14 07:09 07:09 WBC RBC Hgb Hct MCV MCHC RDW 16.5 H Plt Count 139 L Lymph % (Auto) [place] % (Auto) Lymph # (Auto) [place] # (Auto) Seg Neutrophils % Seg Neuts % (Manual) Lymphocytes % (Manual) Monocytes % (Manual) Nucleated RBC % Seg Neutrophils # Seg Neutrophils # Man Lymphocytes # (Manual) Monocytes # (Manual) PT INR APTT D-Dimer Heparin Anti-Xa Level ABG pH POC ABG pCO2 POC ABG pO2 ABG pO2 ABG HCO3 ABG O2 Saturation ABG Base Excess ABG Hemoglobin ABG Oxyhemoglobin ABG Sodium ABG Potassium ABG Glucose Oxyhemoglobin Carboxyhemoglobin Sodium Potassium Chloride Carbon Dioxide BUN 22 H Creatinine 0.7 L Glucose 108 H POC Glucose 116 H Lactic Acid Calcium Phosphorus Magnesium Ferritin Lactate Dehydrogenase C-Reactive Protein NT-Pro-B Natriuret Pep Total Protein Albumin Triglycerides Arterial Blood Glucose Urine pH Ur Specific [place] Coronavirus (PCR) 03/26/21 03/26/21 03/26/21 09:51 11:15 16:59 WBC RBC Hgb Hct MCV MCHC RDW Plt Count Lymph % (Auto) [place] % (Auto) Lymph # (Auto) [place] # (Auto) Seg Neutrophils % Seg Neuts % (Manual) Lymphocytes % (Manual) Monocytes % (Manual) Nucleated RBC % Seg Neutrophils # Seg Neutrophils # Man Lymphocytes # (Manual) Monocytes # (Manual) PT INR APTT D-Dimer Heparin Anti-Xa Level ABG pH POC ABG pCO2 POC ABG pO2 ABG pO2 ABG HCO3 ABG O2 Saturation ABG Base Excess ABG Hemoglobin ABG Oxyhemoglobin ABG Sodium ABG Potassium ABG Glucose Oxyhemoglobin Carboxyhemoglobin Sodium Potassium Chloride Carbon Dioxide BUN Creatinine Glucose POC Glucose 107 H 119 H 174 H Lactic Acid Calcium Phosphorus Magnesium Ferritin Lactate Dehydrogenase C-Reactive Protein NT-Pro-B Natriuret Pep Total Protein Albumin Triglycerides Arterial Blood Glucose Urine pH Ur Specific [place] Coronavirus (PCR) 03/26/21 03/27/21 03/27/21 22:18 07:08 10:28 WBC RBC Hgb Hct MCV 95 H MCHC RDW 16.2 H Plt Count 134 L Lymph % (Auto) [place] % (Auto) Lymph # (Auto) [place] # (Auto) Seg Neutrophils % Seg Neuts % (Manual) Lymphocytes % (Manual) Monocytes % (Manual) Nucleated RBC % Seg Neutrophils # Seg Neutrophils # Man Lymphocytes # (Manual) Monocytes # (Manual) PT INR APTT D-Dimer Heparin Anti-Xa Level ABG pH POC ABG pCO2 POC ABG pO2 ABG pO2 ABG HCO3 ABG O2 Saturation ABG Base Excess ABG Hemoglobin ABG Oxyhemoglobin ABG Sodium ABG Potassium ABG Glucose Oxyhemoglobin Carboxyhemoglobin Sodium Potassium Chloride Carbon Dioxide BUN Creatinine Glucose POC Glucose 107 H 52 L Lactic Acid Calcium Phosphorus Magnesium Ferritin Lactate Dehydrogenase C-Reactive Protein NT-Pro-B Natriuret Pep Total Protein Albumin Triglycerides Arterial Blood Glucose Urine pH Ur Specific [place] Coronavirus (PCR) 03/27/21 03/27/21 03/27/21 10:28 11:45 17:39 WBC RBC Hgb Hct MCV MCHC RDW Plt Count Lymph % (Auto) [place] % (Auto) Lymph # (Auto) [place] # (Auto) Seg Neutrophils % Seg Neuts % (Manual) Lymphocytes % (Manual) Monocytes % (Manual) Nucleated RBC % Seg Neutrophils # Seg Neutrophils # Man Lymphocytes # (Manual) Monocytes # (Manual) PT INR APTT D-Dimer Heparin Anti-Xa Level ABG pH POC ABG pCO2 POC ABG pO2 ABG pO2 ABG HCO3 ABG O2 Saturation ABG Base Excess ABG Hemoglobin ABG Oxyhemoglobin ABG Sodium ABG Potassium ABG Glucose Oxyhemoglobin Carboxyhemoglobin Sodium 136 L Potassium Chloride Carbon Dioxide BUN Creatinine 0.7 L Glucose 150 H POC Glucose 121 H 165 H Lactic Acid Calcium Phosphorus Magnesium Ferritin Lactate Dehydrogenase C-Reactive Protein NT-Pro-B Natriuret Pep Total Protein Albumin Triglycerides Arterial Blood Glucose Urine pH Ur Specific [place] Coronavirus (PCR) 03/28/21 03/28/21 03/28/21 07:14 11:42 18:22 WBC RBC Hgb Hct MCV MCHC RDW 16.4 H Plt Count Lymph % (Auto) [place] % (Auto) Lymph # (Auto) [place] # (Auto) Seg Neutrophils % Seg Neuts % (Manual) Lymphocytes % (Manual) Monocytes % (Manual) Nucleated RBC % Seg Neutrophils # Seg Neutrophils # Man Lymphocytes # (Manual) Monocytes # (Manual) PT INR APTT D-Dimer Heparin Anti-Xa Level ABG pH POC ABG pCO2 POC ABG pO2 ABG pO2 ABG HCO3 ABG O2 Saturation ABG Base Excess ABG Hemoglobin ABG Oxyhemoglobin ABG Sodium ABG Potassium ABG Glucose Oxyhemoglobin Carboxyhemoglobin Sodium Potassium Chloride Carbon Dioxide BUN Creatinine Glucose POC Glucose 145 H 169 H Lactic Acid Calcium Phosphorus Magnesium Ferritin Lactate Dehydrogenase C-Reactive Protein NT-Pro-B Natriuret Pep Total Protein Albumin Triglycerides Arterial Blood Glucose Urine pH Ur Specific [place] Coronavirus (PCR) 0203/29/21 03/29/21 23:39 04:50 04:50 WBC RBC Hgb 11.0 L Hct 34.9 L MCV MCHC RDW 15.9 H Plt Count Lymph % (Auto) [place] % (Auto) Lymph # (Auto) [place] # (Auto) Seg Neutrophils % Seg Neuts % (Manual) Lymphocytes % (Manual) Monocytes % (Manual) Nucleated RBC % Seg Neutrophils # Seg Neutrophils # Man Lymphocytes # (Manual) Monocytes # (Manual) PT INR APTT D-Dimer Heparin Anti-Xa Level ABG pH POC ABG pCO2 POC ABG pO2 ABG pO2 ABG HCO3 ABG O2 Saturation ABG Base Excess ABG Hemoglobin ABG Oxyhemoglobin ABG Sodium ABG Potassium ABG Glucose Oxyhemoglobin Carboxyhemoglobin Sodium Potassium Chloride Carbon Dioxide 34 H BUN Creatinine 0.6 L Glucose 152 H POC Glucose 139 H Lactic Acid Calcium Phosphorus Magnesium Ferritin Lactate Dehydrogenase C-Reactive Protein NT-Pro-B Natriuret Pep Total Protein Albumin Triglycerides Arterial Blood Glucose Urine pH Ur Specific [place] Coronavirus (PCR) 03/29/21 03/29/21 03/29/21 05:25 11:34 18:02 WBC RBC Hgb Hct MCV MCHC RDW Plt Count Lymph % (Auto) [place] % (Auto) Lymph # (Auto) [place] # (Auto) Seg Neutrophils % Seg Neuts % (Manual) Lymphocytes % (Manual) Monocytes % (Manual) Nucleated RBC % Seg Neutrophils # Seg Neutrophils # Man Lymphocytes # (Manual) Monocytes # (Manual) PT INR APTT D-Dimer Heparin Anti-Xa Level ABG pH POC ABG pCO2 POC ABG pO2 ABG pO2 ABG HCO3 ABG O2 Saturation ABG Base Excess ABG Hemoglobin ABG Oxyhemoglobin ABG Sodium ABG Potassium ABG Glucose Oxyhemoglobin Carboxyhemoglobin Sodium Potassium Chloride Carbon Dioxide BUN Creatinine Glucose POC Glucose 127 H 169 H 173 H Lactic Acid Calcium Phosphorus Magnesium Ferritin Lactate Dehydrogenase C-Reactive Protein NT-Pro-B Natriuret Pep Total Protein Albumin Triglycerides Arterial Blood Glucose Urine pH Ur Specific [place] Coronavirus (PCR) 03/29/21 03/30/21 03/30/21 21:42 00:01 05:36 WBC RBC Hgb Hct MCV MCHC RDW 16.7 H Plt Count Lymph % (Auto) [place] % (Auto) Lymph # (Auto) [place] # (Auto) Seg Neutrophils % Seg Neuts % (Manual) Lymphocytes % (Manual) Monocytes % (Manual) Nucleated RBC % Seg Neutrophils # Seg Neutrophils # Man Lymphocytes # (Manual) Monocytes # (Manual) PT INR APTT D-Dimer Heparin Anti-Xa Level ABG pH POC ABG pCO2 POC ABG pO2 ABG pO2 ABG HCO3 ABG O2 Saturation ABG Base Excess ABG Hemoglobin ABG Oxyhemoglobin ABG Sodium ABG Potassium ABG Glucose Oxyhemoglobin Carboxyhemoglobin Sodium Potassium Chloride Carbon Dioxide BUN Creatinine Glucose POC Glucose 184 H 161 H Lactic Acid Calcium Phosphorus Magnesium Ferritin Lactate Dehydrogenase C-Reactive Protein NT-Pro-B Natriuret Pep Total Protein Albumin Triglycerides Arterial Blood Glucose Urine pH Ur Specific [place] Coronavirus (PCR) 03/30/21 03/30/21 03/30/21 05:36 06:03 11:32 WBC RBC Hgb Hct MCV MCHC RDW Plt Count Lymph % (Auto) [place] % (Auto) Lymph # (Auto) [place] # (Auto) Seg Neutrophils % Seg Neuts % (Manual) Lymphocytes % (Manual) Monocytes % (Manual) Nucleated RBC % Seg Neutrophils # Seg Neutrophils # Man Lymphocytes # (Manual) Monocytes # (Manual) PT INR APTT D-Dimer Heparin Anti-Xa Level ABG pH POC ABG pCO2 POC ABG pO2 ABG pO2 ABG HCO3 ABG O2 Saturation ABG Base Excess ABG Hemoglobin ABG Oxyhemoglobin ABG Sodium ABG Potassium ABG Glucose Oxyhemoglobin Carboxyhemoglobin Sodium Potassium Chloride Carbon Dioxide BUN Creatinine 0.5 L Glucose 127 H POC Glucose 130 H 183 H Lactic Acid Calcium Phosphorus Magnesium Ferritin Lactate Dehydrogenase C-Reactive Protein NT-Pro-B Natriuret Pep Total Protein Albumin Triglycerides Arterial Blood Glucose Urine pH Ur Specific [place] Coronavirus (PCR) 03/30/21 03/30/21 03/30/21 15:00 16:23 21:07 WBC RBC Hgb Hct MCV MCHC RDW Plt Count Lymph % (Auto) [place] % (Auto) Lymph # (Auto) [place] # (Auto) Seg Neutrophils % Seg Neuts % (Manual) Lymphocytes % (Manual) Monocytes % (Manual) Nucleated RBC % Seg Neutrophils # Seg Neutrophils # Man Lymphocytes # (Manual) Monocytes # (Manual) PT INR APTT D-Dimer Heparin Anti-Xa Level ABG pH POC ABG pCO2 POC ABG pO2 ABG pO2 67.2 L ABG HCO3 34.9 H ABG O2 Saturation ABG Base Excess 9.1 H ABG Hemoglobin 11.6 L ABG Oxyhemoglobin ABG Sodium ABG Potassium ABG Glucose Oxyhemoglobin 93.0 L Carboxyhemoglobin Sodium Potassium Chloride Carbon Dioxide BUN Creatinine Glucose POC Glucose 162 H 146 H Lactic Acid Calcium Phosphorus Magnesium Ferritin Lactate Dehydrogenase C-Reactive Protein NT-Pro-B Natriuret Pep Total Protein Albumin Triglycerides Arterial Blood Glucose Urine pH Ur Specific [place] Coronavirus (PCR) 03/30/21 03/31/21 03/31/21 23:23 05:44 11:19 WBC RBC Hgb Hct MCV MCHC RDW Plt Count Lymph % (Auto) [place] % (Auto) Lymph # (Auto) [place] # (Auto) Seg Neutrophils % Seg Neuts % (Manual) Lymphocytes % (Manual) Monocytes % (Manual) Nucleated RBC % Seg Neutrophils # Seg Neutrophils # Man Lymphocytes # (Manual) Monocytes # (Manual) PT INR APTT D-Dimer Heparin Anti-Xa Level ABG pH POC ABG pCO2 POC ABG pO2 ABG pO2 ABG HCO3 ABG O2 Saturation ABG Base Excess ABG Hemoglobin ABG Oxyhemoglobin ABG Sodium ABG Potassium ABG Glucose Oxyhemoglobin Carboxyhemoglobin Sodium Potassium Chloride Carbon Dioxide BUN Creatinine Glucose POC Glucose 138 H 180 H 178 H Lactic Acid Calcium Phosphorus Magnesium Ferritin Lactate Dehydrogenase C-Reactive Protein NT-Pro-B Natriuret Pep Total Protein Albumin Triglycerides Arterial Blood Glucose Urine pH Ur Specific [place] Coronavirus (PCR) 03/31/21 03/31/21 03/31/21 12:50 13:30 16:06 WBC RBC Hgb 11.3 L Hct 35.1 L MCV MCHC RDW 16.5 H Plt Count Lymph % (Auto) 7.6 L [place] % (Auto) 9.5 H Lymph # (Auto) 0.6 L [place] # (Auto) Seg Neutrophils % 78.3 H Seg Neuts % (Manual) Lymphocytes % (Manual) Monocytes % (Manual) Nucleated RBC % Seg Neutrophils # Seg Neutrophils # Man Lymphocytes # (Manual) Monocytes # (Manual) PT INR APTT D-Dimer Heparin Anti-Xa Level ABG pH POC ABG pCO2 POC ABG pO2 ABG pO2 99.4 H ABG HCO3 34.9 H ABG O2 Saturation ABG Base Excess 8.4 H ABG Hemoglobin 11.8 L ABG Oxyhemoglobin ABG Sodium ABG Potassium ABG Glucose Oxyhemoglobin Carboxyhemoglobin Sodium Potassium Chloride Carbon Dioxide BUN Creatinine Glucose POC Glucose 197 H Lactic Acid Calcium Phosphorus Magnesium Ferritin Lactate Dehydrogenase C-Reactive Protein NT-Pro-B Natriuret Pep Total Protein Albumin Triglycerides Arterial Blood Glucose Urine pH Ur Specific [place] Coronavirus (PCR) 03/31/21 04/01/21 04/01/21 20:51 05:37 07:16 WBC RBC 3.39 L Hgb 10.5 L Hct 31.6 L MCV MCHC RDW 16.1 H Plt Count Lymph % (Auto) [place] % (Auto) Lymph # (Auto) [place] # (Auto) Seg Neutrophils % Seg Neuts % (Manual) Lymphocytes % (Manual) Monocytes % (Manual) Nucleated RBC % Seg Neutrophils # Seg Neutrophils # Man Lymphocytes # (Manual) Monocytes # (Manual) PT INR APTT D-Dimer Heparin Anti-Xa Level ABG pH POC ABG pCO2 POC ABG pO2 ABG pO2 ABG HCO3 ABG O2 Saturation ABG Base Excess ABG Hemoglobin ABG Oxyhemoglobin ABG Sodium ABG Potassium ABG Glucose Oxyhemoglobin Carboxyhemoglobin Sodium Potassium Chloride Carbon Dioxide BUN Creatinine Glucose POC Glucose 140 H 128 H Lactic Acid Calcium Phosphorus Magnesium Ferritin Lactate Dehydrogenase C-Reactive Protein NT-Pro-B Natriuret Pep Total Protein Albumin Triglycerides Arterial Blood Glucose Urine pH Ur Specific [place] Coronavirus (PCR) 04/01/21 04/01/21 04/01/21 07:16 11:52 16:56 WBC RBC Hgb Hct MCV MCHC RDW Plt Count Lymph % (Auto) [place] % (Auto) Lymph # (Auto) [place] # (Auto) Seg Neutrophils % Seg Neuts % (Manual) Lymphocytes % (Manual) Monocytes % (Manual) Nucleated RBC % Seg Neutrophils # Seg Neutrophils # Man Lymphocytes # (Manual) Monocytes # (Manual) PT INR APTT D-Dimer Heparin Anti-Xa Level ABG pH POC ABG pCO2 POC ABG pO2 ABG pO2 ABG HCO3 ABG O2 Saturation ABG Base Excess ABG Hemoglobin ABG Oxyhemoglobin ABG Sodium ABG Potassium ABG Glucose Oxyhemoglobin Carboxyhemoglobin Sodium Potassium Chloride Carbon Dioxide BUN Creatinine 0.6 L Glucose 131 H POC Glucose 182 H 179 H Lactic Acid Calcium 8.3 L Phosphorus Magnesium Ferritin Lactate Dehydrogenase C-Reactive Protein NT-Pro-B Natriuret Pep Total Protein Albumin Triglycerides Arterial Blood Glucose Urine pH Ur Specific [place] Coronavirus (PCR) 04/01/21 04/01/21 04/02/21 21:30 23:40 04:26 WBC RBC 3.62 L Hgb 10.8 L Hct 33.9 L MCV MCHC RDW 16.0 H Plt Count Lymph % (Auto) [place] % (Auto) Lymph # (Auto) [place] # (Auto) Seg Neutrophils % Seg Neuts % (Manual) Lymphocytes % (Manual) Monocytes % (Manual) Nucleated RBC % Seg Neutrophils # Seg Neutrophils # Man Lymphocytes # (Manual) Monocytes # (Manual) PT INR APTT D-Dimer Heparin Anti-Xa Level ABG pH POC ABG pCO2 POC ABG pO2 ABG pO2 ABG HCO3 ABG O2 Saturation ABG Base Excess ABG Hemoglobin ABG Oxyhemoglobin ABG Sodium ABG Potassium ABG Glucose Oxyhemoglobin Carboxyhemoglobin Sodium Potassium Chloride Carbon Dioxide BUN Creatinine Glucose POC Glucose 131 H 129 H Lactic Acid Calcium Phosphorus Magnesium Ferritin Lactate Dehydrogenase C-Reactive Protein NT-Pro-B Natriuret Pep Total Protein Albumin Triglycerides Arterial Blood Glucose Urine pH Ur Specific [place] Coronavirus (PCR) 04/02/21 04/02/21 04/02/21 04:26 05:54 11:35 WBC RBC Hgb Hct MCV MCHC RDW Plt Count Lymph % (Auto) [place] % (Auto) Lymph # (Auto) [place] # (Auto) Seg Neutrophils % Seg Neuts % (Manual) Lymphocytes % (Manual) Monocytes % (Manual) Nucleated RBC % Seg Neutrophils # Seg Neutrophils # Man Lymphocytes # (Manual) Monocytes # (Manual) PT INR APTT D-Dimer Heparin Anti-Xa Level ABG pH POC ABG pCO2 POC ABG pO2 ABG pO2 ABG HCO3 ABG O2 Saturation ABG Base Excess ABG Hemoglobin ABG Oxyhemoglobin ABG Sodium ABG Potassium ABG Glucose Oxyhemoglobin Carboxyhemoglobin Sodium 136 L Potassium Chloride Carbon Dioxide BUN Creatinine 0.6 L Glucose 152 H POC Glucose 151 H 178 H Lactic Acid Calcium Phosphorus Magnesium Ferritin Lactate Dehydrogenase C-Reactive Protein NT-Pro-B Natriuret Pep Total Protein Albumin Triglycerides Arterial Blood Glucose Urine pH Ur Specific [place] Coronavirus (PCR) 04/02/21 04/02/21 04/02/21 16:11 21:09 23:38 WBC RBC Hgb Hct MCV MCHC RDW Plt Count Lymph % (Auto) [place] % (Auto) Lymph # (Auto) [place] # (Auto) Seg Neutrophils % Seg Neuts % (Manual) Lymphocytes % (Manual) Monocytes % (Manual) Nucleated RBC % Seg Neutrophils # Seg Neutrophils # Man Lymphocytes # (Manual) Monocytes # (Manual) PT INR APTT D-Dimer Heparin Anti-Xa Level ABG pH POC ABG pCO2 POC ABG pO2 ABG pO2 ABG HCO3 ABG O2 Saturation ABG Base Excess ABG Hemoglobin ABG Oxyhemoglobin ABG Sodium ABG Potassium ABG Glucose Oxyhemoglobin Carboxyhemoglobin Sodium Potassium Chloride Carbon Dioxide BUN Creatinine Glucose POC Glucose 186 H 145 H 152 H Lactic Acid Calcium Phosphorus Magnesium Ferritin Lactate Dehydrogenase C-Reactive Protein NT-Pro-B Natriuret Pep Total Protein Albumin Triglycerides Arterial Blood Glucose Urine pH Ur Specific [place] Coronavirus (PCR) 04/03/21 04/03/21 04/03/21 04:14 04:14 05:27 WBC RBC 3.62 L Hgb 11.0 L Hct 34.0 L MCV MCHC RDW 16.3 H Plt Count Lymph % (Auto) [place] % (Auto) Lymph # (Auto) [place] # (Auto) Seg Neutrophils % Seg Neuts % (Manual) Lymphocytes % (Manual) Monocytes % (Manual) Nucleated RBC % Seg Neutrophils # Seg Neutrophils # Man Lymphocytes # (Manual) Monocytes # (Manual) PT INR APTT D-Dimer Heparin Anti-Xa Level ABG pH POC ABG pCO2 POC ABG pO2 ABG pO2 ABG HCO3 ABG O2 Saturation ABG Base Excess ABG Hemoglobin ABG Oxyhemoglobin ABG Sodium ABG Potassium ABG Glucose Oxyhemoglobin Carboxyhemoglobin Sodium Potassium Chloride Carbon Dioxide 31 H BUN Creatinine 0.6 L Glucose 155 H POC Glucose 165 H Lactic Acid Calcium Phosphorus Magnesium Ferritin Lactate Dehydrogenase C-Reactive Protein NT-Pro-B Natriuret Pep Total Protein Albumin Triglycerides Arterial Blood Glucose Urine pH Ur Specific [place] Coronavirus (PCR) 04/03/21 04/03/21 04/03/21 11:02 16:19 19:45 WBC RBC Hgb Hct MCV MCHC RDW Plt Count Lymph % (Auto) [place] % (Auto) Lymph # (Auto) [place] # (Auto) Seg Neutrophils % Seg Neuts % (Manual) Lymphocytes % (Manual) Monocytes % (Manual) Nucleated RBC % Seg Neutrophils # Seg Neutrophils # Man Lymphocytes # (Manual) Monocytes # (Manual) PT INR APTT D-Dimer Heparin Anti-Xa Level ABG pH POC ABG pCO2 POC ABG pO2 ABG pO2 ABG HCO3 ABG O2 Saturation ABG Base Excess ABG Hemoglobin ABG Oxyhemoglobin ABG Sodium ABG Potassium ABG Glucose Oxyhemoglobin Carboxyhemoglobin Sodium Potassium Chloride Carbon Dioxide BUN Creatinine Glucose POC Glucose 161 H 180 H 136 H Lactic Acid Calcium Phosphorus Magnesium Ferritin Lactate Dehydrogenase C-Reactive Protein NT-Pro-B Natriuret Pep Total Protein Albumin Triglycerides Arterial Blood Glucose Urine pH Ur Specific [place] Coronavirus (PCR) 04/04/21 04/04/21 04/04/21 00:21 04:33 04:33 WBC 13.1 H RBC 3.49 L Hgb 10.3 L Hct 32.7 L MCV MCHC RDW 16.1 H Plt Count Lymph % (Auto) [place] % (Auto) Lymph # (Auto) [place] # (Auto) Seg Neutrophils % Seg Neuts % (Manual) Lymphocytes % (Manual) Monocytes % (Manual) Nucleated RBC % Seg Neutrophils # Seg Neutrophils # Man Lymphocytes # (Manual) Monocytes # (Manual) PT INR APTT D-Dimer Heparin Anti-Xa Level ABG pH POC ABG pCO2 POC ABG pO2 ABG pO2 ABG HCO3 ABG O2 Saturation ABG Base Excess ABG Hemoglobin ABG Oxyhemoglobin ABG Sodium ABG Potassium ABG Glucose Oxyhemoglobin Carboxyhemoglobin Sodium Potassium Chloride Carbon Dioxide 31 H BUN Creatinine 0.4 L Glucose 153 H POC Glucose 140 H Lactic Acid Calcium Phosphorus Magnesium Ferritin Lactate Dehydrogenase C-Reactive Protein NT-Pro-B Natriuret Pep Total Protein Albumin Triglycerides Arterial Blood Glucose Urine pH Ur Specific [place] Coronavirus (PCR) 04/04/21 04/04/21 04/04/21 05:16 11:39 17:22 WBC RBC Hgb Hct MCV MCHC RDW Plt Count Lymph % (Auto) [place] % (Auto) Lymph # (Auto) [place] # (Auto) Seg Neutrophils % Seg Neuts % (Manual) Lymphocytes % (Manual) Monocytes % (Manual) Nucleated RBC % Seg Neutrophils # Seg Neutrophils # Man Lymphocytes # (Manual) Monocytes # (Manual) PT INR APTT D-Dimer Heparin Anti-Xa Level ABG pH POC ABG pCO2 POC ABG pO2 ABG pO2 ABG HCO3 ABG O2 Saturation ABG Base Excess ABG Hemoglobin ABG Oxyhemoglobin ABG Sodium ABG Potassium ABG Glucose Oxyhemoglobin Carboxyhemoglobin Sodium Potassium Chloride Carbon Dioxide BUN Creatinine Glucose POC Glucose 152 H 154 H 198 H Lactic Acid Calcium Phosphorus Magnesium Ferritin Lactate Dehydrogenase C-Reactive Protein NT-Pro-B Natriuret Pep Total Protein Albumin Triglycerides Arterial Blood Glucose Urine pH Ur Specific [place] Coronavirus (PCR) 04/04/21 04/04/21 04/05/21 20:14 23:16 04:15 WBC RBC 3.21 L Hgb 10.0 L Hct 30.3 L MCV MCHC RDW 16.4 H Plt Count Lymph % (Auto) [place] % (Auto) Lymph # (Auto) [place] # (Auto) Seg Neutrophils % Seg Neuts % (Manual) Lymphocytes % (Manual) Monocytes % (Manual) Nucleated RBC % Seg Neutrophils # Seg Neutrophils # Man Lymphocytes # (Manual) Monocytes # (Manual) PT INR APTT D-Dimer Heparin Anti-Xa Level ABG pH POC ABG pCO2 POC ABG pO2 ABG pO2 ABG HCO3 ABG O2 Saturation ABG Base Excess ABG Hemoglobin ABG Oxyhemoglobin ABG Sodium ABG Potassium ABG Glucose Oxyhemoglobin Carboxyhemoglobin Sodium Potassium Chloride Carbon Dioxide BUN Creatinine Glucose POC Glucose 161 H 139 H Lactic Acid Calcium Phosphorus Magnesium Ferritin Lactate Dehydrogenase C-Reactive Protein NT-Pro-B Natriuret Pep Total Protein Albumin Triglycerides Arterial Blood Glucose Urine pH Ur Specific [place] Coronavirus (PCR) 04/05/21 04/05/21 04/05/21 04:15 05:34 12:09 WBC RBC Hgb Hct MCV MCHC RDW Plt Count Lymph % (Auto) [place] % (Auto) Lymph # (Auto) [place] # (Auto) Seg Neutrophils % Seg Neuts % (Manual) Lymphocytes % (Manual) Monocytes % (Manual) Nucleated RBC % Seg Neutrophils # Seg Neutrophils # Man Lymphocytes # (Manual) Monocytes # (Manual) PT INR APTT D-Dimer Heparin Anti-Xa Level ABG pH POC ABG pCO2 POC ABG pO2 ABG pO2 ABG HCO3 ABG O2 Saturation ABG Base Excess ABG Hemoglobin ABG Oxyhemoglobin ABG Sodium ABG Potassium ABG Glucose Oxyhemoglobin Carboxyhemoglobin Sodium Potassium Chloride 97.6 L Carbon Dioxide 32 H BUN Creatinine 0.5 L Glucose 147 H POC Glucose 145 H 173 H Lactic Acid Calcium Phosphorus Magnesium Ferritin Lactate Dehydrogenase C-Reactive Protein NT-Pro-B Natriuret Pep Total Protein Albumin Triglycerides Arterial Blood Glucose Urine pH Ur Specific [place] Coronavirus (PCR) 04/05/21 04/05/21 04/05/21 17:35 21:07 23:15 WBC RBC Hgb Hct MCV MCHC RDW Plt Count Lymph % (Auto) [place] % (Auto) Lymph # (Auto) [place] [place] # (Auto) Seg Neutrophils % Seg Neuts % (Manual) Lymphocytes % (Manual) Monocytes % (Manual) Nucleated RBC % Seg Neutrophils # Seg Neutrophils # Man Lymphocytes # (Manual) Monocytes # (Manual) PT INR APTT D-Dimer Heparin Anti-Xa Level ABG pH POC ABG pCO2 POC ABG pO2 ABG pO2 ABG HCO3 ABG O2 Saturation ABG Base Excess ABG Hemoglobin ABG Oxyhemoglobin ABG Sodium ABG Potassium ABG Glucose Oxyhemoglobin Carboxyhemoglobin Sodium Potassium Chloride Carbon Dioxide BUN Creatinine Glucose POC Glucose 143 H 157 H 171 H Lactic Acid Calcium Phosphorus Magnesium Ferritin Lactate Dehydrogenase C-Reactive Protein NT-Pro-B Natriuret Pep Total Protein Albumin Triglycerides Arterial Blood Glucose Urine pH Ur Specific [place] Coronavirus (PCR) 04/06/21 04/06/21 04/06/21 04:49 05:14 11:42 WBC RBC Hgb Hct MCV MCHC RDW Plt Count Lymph % (Auto) [place] % (Auto) Lymph # (Auto) [place] # (Auto) Seg Neutrophils % Seg Neuts % (Manual) Lymphocytes % (Manual) Monocytes % (Manual) Nucleated RBC % Seg Neutrophils # Seg Neutrophils # Man Lymphocytes # (Manual) Monocytes # (Manual) PT INR APTT D-Dimer Heparin Anti-Xa Level ABG pH POC ABG pCO2 57.4 H POC ABG pO2 55.1 L ABG pO2 ABG HCO3 ABG O2 Saturation ABG Base Excess ABG Hemoglobin 11.5 L ABG Oxyhemoglobin 87.5 L ABG Sodium ABG Potassium ABG Glucose Oxyhemoglobin Carboxyhemoglobin Sodium Potassium Chloride Carbon Dioxide BUN Creatinine Glucose POC Glucose 145 H 171 H Lactic Acid Calcium Phosphorus Magnesium Ferritin Lactate Dehydrogenase C-Reactive Protein NT-Pro-B Natriuret Pep Total Protein Albumin Triglycerides Arterial Blood Glucose Urine pH Ur Specific [place] Coronavirus (PCR) 04/06/21 04/06/21 04/06/21 11:50 15:36 15:36 WBC RBC Hgb 10.4 L Hct 32.5 L MCV MCHC RDW Plt Count 444 H Lymph % (Auto) [place] % (Auto) Lymph # (Auto) [place] # (Auto) Seg Neutrophils % Seg Neuts % (Manual) Lymphocytes % (Manual) Monocytes % (Manual) Nucleated RBC % Seg Neutrophils # Seg Neutrophils # Man Lymphocytes # (Manual) Monocytes # (Manual) PT INR APTT 37.1 H D-Dimer Heparin Anti-Xa Level ABG pH 7.341 L POC ABG pCO2 POC ABG pO2 ABG pO2 108.9 H ABG HCO3 38.9 H ABG O2 Saturation ABG Base Excess 10.6 H ABG Hemoglobin 11.5 L ABG Oxyhemoglobin ABG Sodium ABG Potassium ABG Glucose Oxyhemoglobin Carboxyhemoglobin Sodium Potassium Chloride Carbon Dioxide BUN Creatinine Glucose POC Glucose Lactic Acid Calcium Phosphorus Magnesium Ferritin Lactate Dehydrogenase C-Reactive Protein NT-Pro-B Natriuret Pep Total Protein Albumin Triglycerides Arterial Blood Glucose Urine pH Ur Specific [place] Coronavirus (PCR) 04/06/21 04/07/21 04/07/21 17:57 00:30 00:32 WBC RBC Hgb Hct MCV MCHC RDW Plt Count Lymph % (Auto) [place] % (Auto) Lymph # (Auto) [place] # (Auto) Seg Neutrophils % Seg Neuts % (Manual) Lymphocytes % (Manual) Monocytes % (Manual) Nucleated RBC % Seg Neutrophils # Seg Neutrophils # Man Lymphocytes # (Manual) Monocytes # (Manual) PT INR APTT D-Dimer Heparin Anti-Xa Level < 0.10 L ABG pH POC ABG pCO2 POC ABG pO2 ABG pO2 ABG HCO3 ABG O2 Saturation ABG Base Excess ABG Hemoglobin ABG Oxyhemoglobin ABG Sodium ABG Potassium ABG Glucose Oxyhemoglobin Carboxyhemoglobin Sodium Potassium Chloride Carbon Dioxide BUN Creatinine Glucose POC Glucose 151 H 149 H Lactic Acid Calcium Phosphorus Magnesium Ferritin Lactate Dehydrogenase C-Reactive Protein NT-Pro-B Natriuret Pep Total Protein Albumin Triglycerides Arterial Blood Glucose Urine pH Ur Specific [place] Coronavirus (PCR) 04/07/21 04/07/21 04/07/21 05:34 06:08 06:08 WBC RBC 3.20 L Hgb 9.6 L Hct 29.8 L MCV MCHC RDW 16.0 H Plt Count 455 H Lymph % (Auto) [place] % (Auto) Lymph # (Auto) [place] # (Auto) Seg Neutrophils % Seg Neuts % (Manual) Lymphocytes % (Manual) Monocytes % (Manual) Nucleated RBC % Seg Neutrophils # Seg Neutrophils # Man Lymphocytes # (Manual) Monocytes # (Manual) PT INR APTT D-Dimer Heparin Anti-Xa Level ABG pH POC ABG pCO2 POC ABG pO2 ABG pO2 ABG HCO3 ABG O2 Saturation ABG Base Excess ABG Hemoglobin ABG Oxyhemoglobin ABG Sodium ABG Potassium ABG Glucose Oxyhemoglobin Carboxyhemoglobin Sodium Potassium Chloride Carbon Dioxide 35 H BUN Creatinine 0.5 L Glucose 216 H POC Glucose 182 H Lactic Acid Calcium Phosphorus Magnesium Ferritin Lactate Dehydrogenase C-Reactive Protein NT-Pro-B Natriuret Pep Total Protein Albumin Triglycerides Arterial Blood Glucose Urine pH Ur Specific [place] Coronavirus (PCR) 04/07/21 04/07/21 04/07/21 07:55 11:57 17:12 WBC RBC Hgb Hct MCV MCHC RDW Plt Count Lymph % (Auto) [place] % (Auto) Lymph # (Auto) [place] # (Auto) Seg Neutrophils % Seg Neuts % (Manual) Lymphocytes % (Manual) Monocytes % (Manual) Nucleated RBC % Seg Neutrophils # Seg Neutrophils # Man Lymphocytes # (Manual) Monocytes # (Manual) PT INR APTT D-Dimer Heparin Anti-Xa Level < 0.10 L ABG pH POC ABG pCO2 POC ABG pO2 ABG pO2 ABG HCO3 ABG O2 Saturation ABG Base Excess ABG Hemoglobin ABG Oxyhemoglobin ABG Sodium ABG Potassium ABG Glucose Oxyhemoglobin Carboxyhemoglobin Sodium Potassium Chloride Carbon Dioxide BUN Creatinine Glucose POC Glucose 182 H 165 H Lactic Acid Calcium Phosphorus Magnesium Ferritin Lactate Dehydrogenase C-Reactive Protein NT-Pro-B Natriuret Pep Total Protein Albumin Triglycerides Arterial Blood Glucose Urine pH Ur Specific [place] Coronavirus (PCR) 04/07/21 04/08/21 04/08/21 19:55 00:16 03:57 WBC RBC Hgb Hct MCV MCHC RDW Plt Count Lymph % (Auto) [place] % (Auto) Lymph # (Auto) [place] # (Auto) Seg Neutrophils % Seg Neuts % (Manual) Lymphocytes % (Manual) Monocytes % (Manual) Nucleated RBC % Seg Neutrophils # Seg Neutrophils # Man Lymphocytes # (Manual) Monocytes # (Manual) PT INR APTT D-Dimer Heparin Anti-Xa Level < 0.10 L ABG pH POC ABG pCO2 POC ABG pO2 ABG pO2 ABG HCO3 ABG O2 Saturation ABG Base Excess ABG Hemoglobin ABG Oxyhemoglobin ABG Sodium ABG Potassium ABG Glucose Oxyhemoglobin Carboxyhemoglobin Sodium Potassium 5.8 H Chloride 95.5 L Carbon Dioxide 37 H BUN Creatinine 0.5 L Glucose 161 H POC Glucose 175 H Lactic Acid Calcium Phosphorus Magnesium Ferritin Lactate Dehydrogenase C-Reactive Protein NT-Pro-B Natriuret Pep Total Protein Albumin Triglycerides Arterial Blood Glucose Urine pH Ur Specific [place] Coronavirus (PCR) 04/08/21 04/08/21 04/08/21 04:00 05:43 09:26 WBC RBC 3.25 L Hgb 9.9 L Hct 30.8 L MCV 95 H MCHC RDW 16.0 H Plt Count 487 H Lymph % (Auto) [place] % (Auto) Lymph # (Auto) [place] # (Auto) Seg Neutrophils % Seg Neuts % (Manual) Lymphocytes % (Manual) Monocytes % (Manual) Nucleated RBC % Seg Neutrophils # Seg Neutrophils # Man Lymphocytes # (Manual) Monocytes # (Manual) PT INR APTT D-Dimer Heparin Anti-Xa Level ABG pH POC ABG pCO2 POC ABG pO2 ABG pO2 ABG HCO3 ABG O2 Saturation ABG Base Excess ABG Hemoglobin ABG Oxyhemoglobin ABG Sodium ABG Potassium ABG Glucose Oxyhemoglobin Carboxyhemoglobin Sodium Potassium Chloride Carbon Dioxide BUN Creatinine Glucose POC Glucose 162 H 164 H Lactic Acid Calcium Phosphorus Magnesium Ferritin Lactate Dehydrogenase C-Reactive Protein NT-Pro-B Natriuret Pep Total Protein Albumin Triglycerides Arterial Blood Glucose Urine pH Ur Specific [place] Coronavirus (PCR) 04/08/21 04/08/21 04/08/21 11:53 17:19 20:35 WBC RBC Hgb Hct MCV MCHC RDW Plt Count Lymph % (Auto) [place] % (Auto) Lymph # (Auto) [place] # (Auto) Seg Neutrophils % Seg Neuts % (Manual) Lymphocytes % (Manual) Monocytes % (Manual) Nucleated RBC % Seg Neutrophils # Seg Neutrophils # Man Lymphocytes # (Manual) Monocytes # (Manual) PT INR APTT D-Dimer Heparin Anti-Xa Level ABG pH POC ABG pCO2 POC ABG pO2 ABG pO2 ABG HCO3 ABG O2 Saturation ABG Base Excess ABG Hemoglobin ABG Oxyhemoglobin ABG Sodium ABG Potassium ABG Glucose Oxyhemoglobin Carboxyhemoglobin Sodium Potassium Chloride Carbon Dioxide BUN Creatinine Glucose POC Glucose 170 H 157 H 190 H Lactic Acid Calcium Phosphorus Magnesium Ferritin Lactate Dehydrogenase C-Reactive Protein NT-Pro-B Natriuret Pep Total Protein Albumin Triglycerides Arterial Blood Glucose Urine pH Ur Specific [place] Coronavirus (PCR) 04/08/21 04/09/21 04/09/21 23:52 04:21 04:21 WBC 11.4 H RBC 2.97 L Hgb 8.9 L Hct 27.8 L MCV MCHC RDW 15.8 H Plt Count 485 H Lymph % (Auto) [place] % (Auto) Lymph # (Auto) [place] # (Auto) Seg Neutrophils % Seg Neuts % (Manual) Lymphocytes % (Manual) Monocytes % (Manual) Nucleated RBC % Seg Neutrophils # Seg Neutrophils # Man Lymphocytes # (Manual) Monocytes # (Manual) PT INR APTT D-Dimer Heparin Anti-Xa Level ABG pH POC ABG pCO2 POC ABG pO2 ABG pO2 ABG HCO3 ABG O2 Saturation ABG Base Excess ABG Hemoglobin ABG Oxyhemoglobin ABG Sodium ABG Potassium ABG Glucose Oxyhemoglobin Carboxyhemoglobin Sodium Potassium Chloride 97.1 L Carbon Dioxide 40 H BUN 21 H Creatinine 0.5 L Glucose 149 H POC Glucose 170 H Lactic Acid Calcium Phosphorus 1.90 L D Magnesium Ferritin Lactate Dehydrogenase C-Reactive Protein NT-Pro-B Natriuret Pep Total Protein Albumin Triglycerides Arterial Blood Glucose Urine pH Ur Specific [place] Coronavirus (PCR) 04/09/21 04/09/21 04/09/21 05:27 11:55 17:11 WBC RBC Hgb Hct MCV MCHC RDW Plt Count Lymph % (Auto) [place] % (Auto) Lymph # (Auto) [place] # (Auto) Seg Neutrophils % Seg Neuts % (Manual) Lymphocytes % (Manual) Monocytes % (Manual) Nucleated RBC % Seg Neutrophils # Seg Neutrophils # Man Lymphocytes # (Manual) Monocytes # (Manual) PT INR APTT D-Dimer Heparin Anti-Xa Level ABG pH POC ABG pCO2 POC ABG pO2 ABG pO2 ABG HCO3 ABG O2 Saturation ABG Base Excess ABG Hemoglobin ABG Oxyhemoglobin ABG Sodium ABG Potassium ABG Glucose Oxyhemoglobin Carboxyhemoglobin Sodium Potassium Chloride Carbon Dioxide BUN Creatinine Glucose POC Glucose 144 H 190 H 163 H Lactic Acid Calcium Phosphorus Magnesium Ferritin Lactate Dehydrogenase C-Reactive Protein NT-Pro-B Natriuret Pep Total Protein Albumin Triglycerides Arterial Blood Glucose Urine pH Ur Specific [place] Coronavirus (PCR) 04/09/21 04/09/21 04/09/21 20:10 21:12 23:33 WBC RBC Hgb Hct MCV MCHC RDW Plt Count Lymph % (Auto) [place] % (Auto) Lymph # (Auto) [place] # (Auto) Seg Neutrophils % Seg Neuts % (Manual) Lymphocytes % (Manual) Monocytes % (Manual) Nucleated RBC % Seg Neutrophils # Seg Neutrophils # Man Lymphocytes # (Manual) Monocytes # (Manual) PT INR APTT D-Dimer Heparin Anti-Xa Level ABG pH POC ABG pCO2 POC ABG pO2 ABG pO2 68.1 L ABG HCO3 41.3 H ABG O2 Saturation ABG Base Excess 14.6 H ABG Hemoglobin 10.2 L ABG Oxyhemoglobin ABG Sodium ABG Potassium ABG Glucose Oxyhemoglobin 94.7 L Carboxyhemoglobin Sodium Potassium Chloride Carbon Dioxide BUN Creatinine Glucose POC Glucose 163 H 164 H Lactic Acid Calcium Phosphorus Magnesium Ferritin Lactate Dehydrogenase C-Reactive Protein NT-Pro-B Natriuret Pep Total Protein Albumin Triglycerides Arterial Blood Glucose Urine pH Ur Specific [place] Coronavirus (PCR) 04/10/21 04/10/21 04/10/21 05:26 11:41 13:00 WBC RBC 3.09 L Hgb 9.3 L Hct 28.3 L MCV MCHC RDW 15.8 H Plt Count 480 H Lymph % (Auto) [place] % (Auto) Lymph # (Auto) [place] # (Auto) Seg Neutrophils % Seg Neuts % (Manual) Lymphocytes % (Manual) Monocytes % (Manual) Nucleated RBC % Seg Neutrophils # Seg Neutrophils # Man Lymphocytes # (Manual) Monocytes # (Manual) PT INR APTT D-Dimer Heparin Anti-Xa Level ABG pH POC ABG pCO2 POC ABG pO2 ABG pO2 ABG HCO3 ABG O2 Saturation ABG Base Excess ABG Hemoglobin ABG Oxyhemoglobin ABG Sodium ABG Potassium ABG Glucose Oxyhemoglobin Carboxyhemoglobin Sodium Potassium Chloride Carbon Dioxide BUN Creatinine Glucose POC Glucose 172 H 150 H Lactic Acid Calcium Phosphorus Magnesium Ferritin Lactate Dehydrogenase C-Reactive Protein NT-Pro-B Natriuret Pep Total Protein Albumin Triglycerides Arterial Blood Glucose Urine pH Ur Specific [place] Coronavirus (PCR) 04/10/21 04/10/21 04/10/21 13:00 17:46 21:37 WBC RBC Hgb Hct MCV MCHC RDW Plt Count Lymph % (Auto) [place] % (Auto) Lymph # (Auto) [place] # (Auto) Seg Neutrophils % Seg Neuts % (Manual) Lymphocytes % (Manual) Monocytes % (Manual) Nucleated RBC % Seg Neutrophils # Seg Neutrophils # Man Lymphocytes # (Manual) Monocytes # (Manual) PT INR APTT D-Dimer Heparin Anti-Xa Level ABG pH POC ABG pCO2 POC ABG pO2 ABG pO2 ABG HCO3 ABG O2 Saturation ABG Base Excess ABG Hemoglobin ABG Oxyhemoglobin ABG Sodium ABG Potassium ABG Glucose Oxyhemoglobin Carboxyhemoglobin Sodium Potassium Chloride 96.4 L Carbon Dioxide 34 H BUN Creatinine 0.5 L Glucose 165 H POC Glucose 165 H 166 H Lactic Acid Calcium Phosphorus Magnesium Ferritin Lactate Dehydrogenase C-Reactive Protein NT-Pro-B Natriuret Pep Total Protein Albumin Triglycerides Arterial Blood Glucose Urine pH Ur Specific [place] Coronavirus (PCR) 04/10/21 04/11/21 04/11/21 23:56 04:30 05:39 WBC 11.5 H RBC 3.02 L Hgb 8.9 L Hct 27.8 L MCV MCHC RDW 16.0 H Plt Count 505 H Lymph % (Auto) [place] % (Auto) Lymph # (Auto) [place] # (Auto) Seg Neutrophils % Seg Neuts % (Manual) Lymphocytes % (Manual) Monocytes % (Manual) Nucleated RBC % Seg Neutrophils # Seg Neutrophils # Man Lymphocytes # (Manual) Monocytes # (Manual) PT INR APTT D-Dimer Heparin Anti-Xa Level ABG pH POC ABG pCO2 POC ABG pO2 ABG pO2 ABG HCO3 ABG O2 Saturation ABG Base Excess ABG Hemoglobin ABG Oxyhemoglobin ABG Sodium ABG Potassium ABG Glucose Oxyhemoglobin Carboxyhemoglobin Sodium Potassium Chloride Carbon Dioxide BUN Creatinine Glucose POC Glucose 156 H 164 H Lactic Acid Calcium Phosphorus Magnesium Ferritin Lactate Dehydrogenase C-Reactive Protein NT-Pro-B Natriuret Pep Total Protein Albumin Triglycerides Arterial Blood Glucose Urine pH Ur Specific [place] Coronavirus (PCR) 04/11/21 04/11/21 04/11/21 06:47 06:47 11:29 WBC RBC 3.35 L Hgb 9.8 L Hct 30.7 L MCV MCHC RDW 16.3 H Plt Count 520 H Lymph % (Auto) [place] % (Auto) Lymph # (Auto) [place] # (Auto) Seg Neutrophils % Seg Neuts % (Manual) 76.0 H Lymphocytes % (Manual) 10.0 L Monocytes % (Manual) Nucleated RBC % Seg Neutrophils # Seg Neutrophils # Man 8.3 H Lymphocytes # (Manual) 1.1 L Monocytes # (Manual) PT INR APTT D-Dimer Heparin Anti-Xa Level ABG pH POC ABG pCO2 POC ABG pO2 ABG pO2 ABG HCO3 ABG O2 Saturation ABG Base Excess ABG Hemoglobin ABG Oxyhemoglobin ABG Sodium ABG Potassium ABG Glucose Oxyhemoglobin Carboxyhemoglobin Sodium Potassium Chloride 97.7 L Carbon Dioxide 34 H BUN Creatinine 0.4 L Glucose 178 H POC Glucose 170 H Lactic Acid Calcium Phosphorus Magnesium Ferritin Lactate Dehydrogenase C-Reactive Protein NT-Pro-B Natriuret Pep Total Protein Albumin Triglycerides Arterial Blood Glucose Urine pH Ur Specific [place] Coronavirus (PCR) 04/11/21 04/11/21 04/11/21 18:17 18:17 18:17 WBC RBC 3.22 L Hgb 9.5 L Hct 29.8 L MCV MCHC RDW 16.0 H Plt Count Lymph % (Auto) [place] % (Auto) Lymph # (Auto) [place] # (Auto) Seg Neutrophils % Seg Neuts % (Manual) Lymphocytes % (Manual) Monocytes % (Manual) Nucleated RBC % Seg Neutrophils # Seg Neutrophils # Man Lymphocytes # (Manual) Monocytes # (Manual) PT INR APTT 61.1 H* D-Dimer Heparin Anti-Xa Level ABG pH POC ABG pCO2 POC ABG pO2 ABG pO2 ABG HCO3 ABG O2 Saturation ABG Base Excess ABG Hemoglobin ABG Oxyhemoglobin ABG Sodium ABG Potassium ABG Glucose Oxyhemoglobin Carboxyhemoglobin Sodium Potassium Chloride Carbon Dioxide BUN Creatinine 0.3 L Glucose POC Glucose Lactic Acid Calcium Phosphorus Magnesium Ferritin Lactate Dehydrogenase C-Reactive Protein NT-Pro-B Natriuret Pep Total Protein Albumin Triglycerides Arterial Blood Glucose Urine pH Ur Specific [place] Coronavirus (PCR) 04/11/21 04/12/21 04/12/21 18:25 00:19 05:11 WBC RBC 2.92 L Hgb 8.6 L Hct 26.9 L MCV MCHC RDW 16.3 H Plt Count 460 H Lymph % (Auto) [place] % (Auto) Lymph # (Auto) [place] # (Auto) Seg Neutrophils % Seg Neuts % (Manual) Lymphocytes % (Manual) Monocytes % (Manual) Nucleated RBC % Seg Neutrophils # Seg Neutrophils # Man Lymphocytes # (Manual) Monocytes # (Manual) PT INR APTT D-Dimer Heparin Anti-Xa Level ABG pH POC ABG pCO2 POC ABG pO2 ABG pO2 ABG HCO3 ABG O2 Saturation ABG Base Excess ABG Hemoglobin ABG Oxyhemoglobin ABG Sodium ABG Potassium ABG Glucose Oxyhemoglobin Carboxyhemoglobin Sodium Potassium Chloride Carbon Dioxide BUN Creatinine Glucose POC Glucose 167 H 128 H Lactic Acid Calcium Phosphorus Magnesium Ferritin Lactate Dehydrogenase C-Reactive Protein NT-Pro-B Natriuret Pep Total Protein Albumin Triglycerides Arterial Blood Glucose Urine pH Ur Specific [place] Coronavirus (PCR) 04/12/21 04/12/21 04/12/21 05:11 05:11 06:23 WBC RBC Hgb Hct MCV MCHC RDW Plt Count Lymph % (Auto) [place] % (Auto) Lymph # (Auto) [place] # (Auto) Seg Neutrophils % Seg Neuts % (Manual) Lymphocytes % (Manual) Monocytes % (Manual) Nucleated RBC % Seg Neutrophils # Seg Neutrophils # Man Lymphocytes # (Manual) Monocytes # (Manual) PT INR APTT D-Dimer Heparin Anti-Xa Level 1.03 H ABG pH POC ABG pCO2 POC ABG pO2 ABG pO2 ABG HCO3 ABG O2 Saturation ABG Base Excess ABG Hemoglobin ABG Oxyhemoglobin ABG Sodium ABG Potassium ABG Glucose Oxyhemoglobin Carboxyhemoglobin Sodium Potassium Chloride Carbon Dioxide 34 H BUN Creatinine 0.3 L Glucose 153 H POC Glucose 162 H Lactic Acid Calcium Phosphorus Magnesium Ferritin Lactate Dehydrogenase C-Reactive Protein NT-Pro-B Natriuret Pep Total Protein Albumin Triglycerides Arterial Blood Glucose Urine pH Ur Specific [place] Coronavirus (PCR) 04/12/21 04/12/21 04/12/21 09:45 11:08 15:56 WBC RBC Hgb Hct MCV MCHC RDW Plt Count Lymph % (Auto) [place] % (Auto) Lymph # (Auto) [place] # (Auto) Seg Neutrophils % Seg Neuts % (Manual) Lymphocytes % (Manual) Monocytes % (Manual) Nucleated RBC % Seg Neutrophils # Seg Neutrophils # Man Lymphocytes # (Manual) Monocytes # (Manual) PT INR APTT D-Dimer Heparin Anti-Xa Level ABG pH POC ABG pCO2 POC ABG pO2 ABG pO2 70.8 L ABG HCO3 41.0 H ABG O2 Saturation ABG Base Excess 13.7 H ABG Hemoglobin 8.3 L ABG Oxyhemoglobin ABG Sodium ABG Potassium ABG Glucose Oxyhemoglobin 94.0 L Carboxyhemoglobin Sodium Potassium Chloride Carbon Dioxide BUN Creatinine Glucose POC Glucose 174 H 146 H Lactic Acid Calcium Phosphorus Magnesium Ferritin Lactate Dehydrogenase C-Reactive Protein NT-Pro-B Natriuret Pep Total Protein Albumin Triglycerides Arterial Blood Glucose Urine pH Ur Specific [place] Coronavirus (PCR) 04/12/21 04/12/21 04/13/21 21:55 23:25 04:34 WBC 12.5 H RBC 2.97 L Hgb 8.9 L Hct 27.3 L MCV MCHC RDW 16.4 H Plt Count 470 H Lymph % (Auto) [place] % (Auto) Lymph # (Auto) [place] # (Auto) Seg Neutrophils % Seg Neuts % (Manual) Lymphocytes % (Manual) Monocytes % (Manual) Nucleated RBC % Seg Neutrophils # Seg Neutrophils # Man Lymphocytes # (Manual) Monocytes # (Manual) PT INR APTT D-Dimer Heparin Anti-Xa Level ABG pH POC ABG pCO2 POC ABG pO2 ABG pO2 ABG HCO3 ABG O2 Saturation ABG Base Excess ABG Hemoglobin ABG Oxyhemoglobin ABG Sodium ABG Potassium ABG Glucose Oxyhemoglobin Carboxyhemoglobin Sodium Potassium Chloride Carbon Dioxide BUN Creatinine Glucose POC Glucose 142 H 170 H Lactic Acid Calcium Phosphorus Magnesium Ferritin Lactate Dehydrogenase C-Reactive Protein NT-Pro-B Natriuret Pep Total Protein Albumin Triglycerides Arterial Blood Glucose Urine pH Ur Specific [place] Coronavirus (PCR) 04/13/21 04/13/21 04/13/21 04:34 05:17 11:14 WBC RBC Hgb Hct MCV MCHC RDW Plt Count Lymph % (Auto) [place] % (Auto) Lymph # (Auto) [place] # (Auto) Seg Neutrophils % Seg Neuts % (Manual) Lymphocytes % (Manual) Monocytes % (Manual) Nucleated RBC % Seg Neutrophils # Seg Neutrophils # Man Lymphocytes # (Manual) Monocytes # (Manual) PT INR APTT D-Dimer Heparin Anti-Xa Level ABG pH POC ABG pCO2 POC ABG pO2 ABG pO2 ABG HCO3 ABG O2 Saturation ABG Base Excess ABG Hemoglobin ABG Oxyhemoglobin ABG Sodium ABG Potassium ABG Glucose Oxyhemoglobin Carboxyhemoglobin Sodium Potassium Chloride 96.6 L Carbon Dioxide 41 H* D BUN Creatinine 0.3 L Glucose 171 H POC Glucose 141 H 149 H Lactic Acid Calcium Phosphorus Magnesium Ferritin Lactate Dehydrogenase C-Reactive Protein NT-Pro-B Natriuret Pep Total Protein Albumin Triglycerides Arterial Blood Glucose Urine pH Ur Specific [place] Coronavirus (PCR) 04/13/21 04/13/21 04/14/21 15:51 23:35 04:32 WBC 13.8 H RBC 2.64 L Hgb 8.0 L Hct 24.1 L MCV MCHC RDW 16.1 H Plt Count Lymph % (Auto) [place] % (Auto) Lymph # (Auto) [place] # (Auto) Seg Neutrophils % Seg Neuts % (Manual) Lymphocytes % (Manual) Monocytes % (Manual) Nucleated RBC % Seg Neutrophils # Seg Neutrophils # Man Lymphocytes # (Manual) Monocytes # (Manual) PT INR APTT D-Dimer Heparin Anti-Xa Level ABG pH POC ABG pCO2 POC ABG pO2 ABG pO2 ABG HCO3 ABG O2 Saturation ABG Base Excess ABG Hemoglobin ABG Oxyhemoglobin ABG Sodium ABG Potassium ABG Glucose Oxyhemoglobin Carboxyhemoglobin Sodium Potassium Chloride Carbon Dioxide BUN Creatinine Glucose POC Glucose 136 H 167 H Lactic Acid Calcium Phosphorus Magnesium Ferritin Lactate Dehydrogenase C-Reactive Protein NT-Pro-B Natriuret Pep Total Protein Albumin Triglycerides Arterial Blood Glucose Urine pH Ur Specific [place] Coronavirus (PCR) 04/14/21 04/14/21 04/14/21 04:32 05:18 11:03 WBC RBC Hgb Hct MCV MCHC RDW Plt Count Lymph % (Auto) [place] % (Auto) Lymph # (Auto) [place] # (Auto) Seg Neutrophils % Seg Neuts % (Manual) Lymphocytes % (Manual) Monocytes % (Manual) Nucleated RBC % Seg Neutrophils # Seg Neutrophils # Man Lymphocytes # (Manual) Monocytes # (Manual) PT INR APTT D-Dimer Heparin Anti-Xa Level ABG pH POC ABG pCO2 POC ABG pO2 ABG pO2 ABG HCO3 ABG O2 Saturation ABG Base Excess ABG Hemoglobin ABG Oxyhemoglobin ABG Sodium ABG Potassium ABG Glucose Oxyhemoglobin Carboxyhemoglobin Sodium Potassium Chloride 95.5 L Carbon Dioxide 38 H BUN Creatinine 0.4 L Glucose 141 H POC Glucose 140 H 143 H Lactic Acid Calcium Phosphorus Magnesium Ferritin Lactate Dehydrogenase C-Reactive Protein NT-Pro-B Natriuret Pep Total Protein Albumin Triglycerides Arterial Blood Glucose Urine pH Ur Specific [place] Coronavirus (PCR) 04/14/21 04/14/21 04/14/21 16:38 23:46 Unknown WBC RBC Hgb Hct MCV MCHC RDW Plt Count Lymph % (Auto) [place] % (Auto) Lymph # (Auto) [place] # (Auto) Seg Neutrophils % Seg Neuts % (Manual) Lymphocytes % (Manual) Monocytes % (Manual) Nucleated RBC % Seg Neutrophils # Seg Neutrophils # Man Lymphocytes # (Manual) Monocytes # (Manual) PT INR APTT D-Dimer Heparin Anti-Xa Level ABG pH POC ABG pCO2 POC ABG pO2 ABG pO2 ABG HCO3 ABG O2 Saturation ABG Base Excess ABG Hemoglobin ABG Oxyhemoglobin ABG Sodium ABG Potassium ABG Glucose Oxyhemoglobin Carboxyhemoglobin Sodium Potassium Chloride Carbon Dioxide BUN Creatinine Glucose POC Glucose 157 H 155 H Lactic Acid Calcium Phosphorus Magnesium Ferritin Lactate Dehydrogenase C-Reactive Protein NT-Pro-B Natriuret Pep Total Protein Albumin Triglycerides Arterial Blood Glucose Urine pH 8.0 H Ur Specific [place] Coronavirus (PCR) 04/15/21 04/15/21 04/15/21 04:44 04:44 05:52 WBC 15.8 H RBC 2.96 L Hgb 8.9 L Hct 27.1 L MCV MCHC RDW 16.5 H Plt Count 507 H Lymph % (Auto) [place] % (Auto) Lymph # (Auto) [place] # (Auto) Seg Neutrophils % Seg Neuts % (Manual) Lymphocytes % (Manual) Monocytes % (Manual) Nucleated RBC % Seg Neutrophils # Seg Neutrophils # Man Lymphocytes # (Manual) Monocytes # (Manual) PT INR APTT D-Dimer Heparin Anti-Xa Level ABG pH POC ABG pCO2 POC ABG pO2 ABG pO2 ABG HCO3 ABG O2 Saturation ABG Base Excess ABG Hemoglobin ABG Oxyhemoglobin ABG Sodium ABG Potassium ABG Glucose Oxyhemoglobin Carboxyhemoglobin Sodium Potassium Chloride 96.9 L Carbon Dioxide 38 H BUN Creatinine 0.4 L Glucose 163 H POC Glucose 167 H Lactic Acid Calcium Phosphorus Magnesium Ferritin Lactate Dehydrogenase C-Reactive Protein NT-Pro-B Natriuret Pep Total Protein Albumin Triglycerides Arterial Blood Glucose Urine pH Ur Specific [place] Coronavirus (PCR) 04/15/21 04/15/21 04/15/21 11:35 17:20 18:10 WBC RBC Hgb Hct MCV MCHC RDW Plt Count Lymph % (Auto) [place] % (Auto) Lymph # (Auto) [place] # (Auto) Seg Neutrophils % Seg Neuts % (Manual) Lymphocytes % (Manual) Monocytes % (Manual) Nucleated RBC % Seg Neutrophils # Seg Neutrophils # Man Lymphocytes # (Manual) Monocytes # (Manual) PT INR APTT D-Dimer Heparin Anti-Xa Level ABG pH 7.477 H POC ABG pCO2 POC ABG pO2 ABG pO2 ABG HCO3 40.6 H ABG O2 Saturation ABG Base Excess 15.2 H ABG Hemoglobin 9.0 L ABG Oxyhemoglobin ABG Sodium ABG Potassium ABG Glucose Oxyhemoglobin 94.7 L Carboxyhemoglobin Sodium Potassium Chloride Carbon Dioxide BUN Creatinine Glucose POC Glucose 179 H 165 H Lactic Acid Calcium Phosphorus Magnesium Ferritin Lactate Dehydrogenase C-Reactive Protein NT-Pro-B Natriuret Pep Total Protein Albumin Triglycerides Arterial Blood Glucose Urine pH Ur Specific [place] Coronavirus (PCR) 04/15/21 04/16/21 04/16/21 23:39 04:33 04:33 WBC 13.1 H RBC 3.26 L Hgb 9.5 L Hct 30.2 L MCV MCHC 31 L RDW 16.2 H Plt Count Lymph % (Auto) [place] % (Auto) Lymph # (Auto) [place] # (Auto) Seg Neutrophils % Seg Neuts % (Manual) Lymphocytes % (Manual) Monocytes % (Manual) Nucleated RBC % Seg Neutrophils # Seg Neutrophils # Man Lymphocytes # (Manual) Monocytes # (Manual) PT INR APTT D-Dimer Heparin Anti-Xa Level ABG pH POC ABG pCO2 POC ABG pO2 ABG pO2 ABG HCO3 ABG O2 Saturation ABG Base Excess ABG Hemoglobin ABG Oxyhemoglobin ABG Sodium ABG Potassium ABG Glucose Oxyhemoglobin Carboxyhemoglobin Sodium Potassium Chloride 95.8 L Carbon Dioxide 34 H BUN 24 H Creatinine 0.4 L Glucose 153 H POC Glucose 155 H Lactic Acid Calcium Phosphorus Magnesium 2.40 H Ferritin Lactate Dehydrogenase C-Reactive Protein NT-Pro-B Natriuret Pep Total Protein Albumin Triglycerides Arterial Blood Glucose Urine pH Ur Specific [place] Coronavirus (PCR) 04/16/21 04/16/21 04/16/21 04:55 05:29 11:02 WBC RBC Hgb Hct MCV MCHC RDW Plt Count Lymph % (Auto) [place] % (Auto) Lymph # (Auto) [place] # (Auto) Seg Neutrophils % Seg Neuts % (Manual) Lymphocytes % (Manual) Monocytes % (Manual) Nucleated RBC % Seg Neutrophils # Seg Neutrophils # Man Lymphocytes # (Manual) Monocytes # (Manual) PT INR APTT D-Dimer Heparin Anti-Xa Level ABG pH 7.487 H POC ABG pCO2 POC ABG pO2 ABG pO2 75.4 L ABG HCO3 40.6 H ABG O2 Saturation ABG Base Excess 15.3 H ABG Hemoglobin 8.9 L ABG Oxyhemoglobin ABG Sodium ABG Potassium ABG Glucose Oxyhemoglobin Carboxyhemoglobin Sodium Potassium Chloride Carbon Dioxide BUN Creatinine Glucose POC Glucose 168 H 170 H Lactic Acid Calcium Phosphorus Magnesium Ferritin Lactate Dehydrogenase C-Reactive Protein NT-Pro-B Natriuret Pep Total Protein Albumin Triglycerides Arterial Blood Glucose Urine pH Ur Specific [place] Coronavirus (PCR) 04/16/21 04/16/21 04/17/21 16:13 23:41 04:25 WBC 12.5 H RBC 3.00 L Hgb 8.9 L Hct 27.2 L MCV MCHC RDW 16.0 H Plt Count Lymph % (Auto) [place] % (Auto) Lymph # (Auto) [place] # (Auto) Seg Neutrophils % Seg Neuts % (Manual) Lymphocytes % (Manual) Monocytes % (Manual) Nucleated RBC % Seg Neutrophils # Seg Neutrophils # Man Lymphocytes # (Manual) Monocytes # (Manual) PT INR APTT D-Dimer Heparin Anti-Xa Level ABG pH POC ABG pCO2 POC ABG pO2 ABG pO2 ABG HCO3 ABG O2 Saturation ABG Base Excess ABG Hemoglobin ABG Oxyhemoglobin ABG Sodium ABG Potassium ABG Glucose Oxyhemoglobin Carboxyhemoglobin Sodium Potassium Chloride Carbon Dioxide BUN Creatinine Glucose POC Glucose 167 H 150 H Lactic Acid Calcium Phosphorus Magnesium Ferritin Lactate Dehydrogenase C-Reactive Protein NT-Pro-B Natriuret Pep Total Protein Albumin Triglycerides Arterial Blood Glucose Urine pH Ur Specific [place] Coronavirus (PCR) 04/17/21 04/17/21 04/17/21 04:25 05:23 11:18 WBC RBC Hgb Hct MCV MCHC RDW Plt Count Lymph % (Auto) [place] % (Auto) Lymph # (Auto) [place] # (Auto) Seg Neutrophils % Seg Neuts % (Manual) Lymphocytes % (Manual) Monocytes % (Manual) Nucleated RBC % Seg Neutrophils # Seg Neutrophils # Man Lymphocytes # (Manual) Monocytes # (Manual) PT INR APTT D-Dimer Heparin Anti-Xa Level ABG pH POC ABG pCO2 POC ABG pO2 ABG pO2 ABG HCO3 ABG O2 Saturation ABG Base Excess ABG Hemoglobin ABG Oxyhemoglobin ABG Sodium ABG Potassium ABG Glucose Oxyhemoglobin Carboxyhemoglobin Sodium 136 L Potassium Chloride 92.4 L Carbon Dioxide 36 H BUN 23 H Creatinine 0.4 L Glucose 145 H POC Glucose 128 H 163 H Lactic Acid Calcium Phosphorus Magnesium Ferritin Lactate Dehydrogenase C-Reactive Protein NT-Pro-B Natriuret Pep Total Protein Albumin Triglycerides Arterial Blood Glucose Urine pH Ur Specific [place] Coronavirus (PCR) 04/17/21 04/17/21 04/18/21 16:50 21:04 00:18 WBC RBC Hgb Hct MCV MCHC RDW Plt Count Lymph % (Auto) [place] % (Auto) Lymph # (Auto) [place] # (Auto) Seg Neutrophils % Seg Neuts % (Manual) Lymphocytes % (Manual) Monocytes % (Manual) Nucleated RBC % Seg Neutrophils # Seg Neutrophils # Man Lymphocytes # (Manual) Monocytes # (Manual) PT INR APTT D-Dimer Heparin Anti-Xa Level ABG pH POC ABG pCO2 POC ABG pO2 ABG pO2 ABG HCO3 ABG O2 Saturation ABG Base Excess ABG Hemoglobin ABG Oxyhemoglobin ABG Sodium ABG Potassium ABG Glucose Oxyhemoglobin Carboxyhemoglobin Sodium Potassium Chloride Carbon Dioxide BUN Creatinine Glucose POC Glucose 137 H 186 H 194 H Lactic Acid Calcium Phosphorus Magnesium Ferritin Lactate Dehydrogenase C-Reactive Protein NT-Pro-B Natriuret Pep Total Protein Albumin Triglycerides Arterial Blood Glucose Urine pH Ur Specific [place] Coronavirus (PCR) 04/18/21 04/18/21 04/18/21 04:20 04:20 05:21 WBC 14.2 H RBC 2.92 L Hgb 8.5 L Hct 26.3 L MCV MCHC RDW 16.1 H Plt Count Lymph % (Auto) [place] % (Auto) Lymph # (Auto) [place] # (Auto) Seg Neutrophils % Seg Neuts % (Manual) Lymphocytes % (Manual) Monocytes % (Manual) Nucleated RBC % Seg Neutrophils # Seg Neutrophils # Man Lymphocytes # (Manual) Monocytes # (Manual) PT INR APTT D-Dimer Heparin Anti-Xa Level ABG pH POC ABG pCO2 POC ABG pO2 ABG pO2 ABG HCO3 ABG O2 Saturation ABG Base Excess ABG Hemoglobin ABG Oxyhemoglobin ABG Sodium ABG Potassium ABG Glucose Oxyhemoglobin Carboxyhemoglobin Sodium Potassium Chloride 95.7 L Carbon Dioxide 33 H BUN 21 H Creatinine 0.3 L Glucose 120 H POC Glucose 107 H Lactic Acid Calcium Phosphorus Magnesium Ferritin Lactate Dehydrogenase C-Reactive Protein NT-Pro-B Natriuret Pep Total Protein Albumin Triglycerides Arterial Blood Glucose Urine pH Ur Specific [place] Coronavirus (PCR) 04/18/21 04/18/21 04/18/21 05:26 11:30 11:33 WBC RBC Hgb Hct MCV MCHC RDW Plt Count Lymph % (Auto) [place] % (Auto) Lymph # (Auto) [place] # (Auto) Seg Neutrophils % Seg Neuts % (Manual) Lymphocytes % (Manual) Monocytes % (Manual) Nucleated RBC % Seg Neutrophils # Seg Neutrophils # Man Lymphocytes # (Manual) Monocytes # (Manual) PT INR APTT D-Dimer Heparin Anti-Xa Level ABG pH 7.469 H POC ABG pCO2 POC ABG pO2 ABG pO2 108.9 H ABG HCO3 36.2 H ABG O2 Saturation ABG Base Excess 11.2 H ABG Hemoglobin 8.8 L ABG Oxyhemoglobin ABG Sodium ABG Potassium ABG Glucose Oxyhemoglobin Carboxyhemoglobin Sodium Potassium Chloride Carbon Dioxide BUN Creatinine Glucose POC Glucose 111 H 113 H Lactic Acid Calcium Phosphorus Magnesium Ferritin Lactate Dehydrogenase C-Reactive Protein NT-Pro-B Natriuret Pep Total Protein Albumin Triglycerides Arterial Blood Glucose Urine pH Ur Specific [place] Coronavirus (PCR) 04/18/21 04/18/21 04/19/21 16:53 23:26 04:26 WBC 13.6 H RBC 2.69 L Hgb 8.5 L Hct 24.4 L MCV MCHC 35 H RDW 15.9 H Plt Count Lymph % (Auto) [place] % (Auto) Lymph # (Auto) [place] # (Auto) Seg Neutrophils % Seg Neuts % (Manual) Lymphocytes % (Manual) Monocytes % (Manual) Nucleated RBC % Seg Neutrophils # Seg Neutrophils # Man Lymphocytes # (Manual) Monocytes # (Manual) PT INR APTT D-Dimer Heparin Anti-Xa Level ABG pH POC ABG pCO2 POC ABG pO2 ABG pO2 ABG HCO3 ABG O2 Saturation ABG Base Excess ABG Hemoglobin ABG Oxyhemoglobin ABG Sodium ABG Potassium ABG Glucose Oxyhemoglobin Carboxyhemoglobin Sodium Potassium Chloride Carbon Dioxide BUN Creatinine Glucose POC Glucose 139 H 137 H Lactic Acid Calcium Phosphorus Magnesium Ferritin Lactate Dehydrogenase C-Reactive Protein NT-Pro-B Natriuret Pep Total Protein Albumin Triglycerides Arterial Blood Glucose Urine pH Ur Specific [place] Coronavirus (PCR) 04/19/21 04/19/21 04/19/21 04:26 05:16 11:01 WBC RBC Hgb Hct MCV MCHC RDW Plt Count Lymph % (Auto) [place] % (Auto) Lymph # (Auto) [place] # (Auto) Seg Neutrophils % Seg Neuts % (Manual) Lymphocytes % (Manual) Monocytes % (Manual) Nucleated RBC % Seg Neutrophils # Seg Neutrophils # Man Lymphocytes # (Manual) Monocytes # (Manual) PT INR APTT D-Dimer Heparin Anti-Xa Level ABG pH POC ABG pCO2 POC ABG pO2 ABG pO2 ABG HCO3 ABG O2 Saturation ABG Base Excess ABG Hemoglobin ABG Oxyhemoglobin ABG Sodium ABG Potassium ABG Glucose Oxyhemoglobin Carboxyhemoglobin Sodium Potassium Chloride Carbon Dioxide BUN Creatinine 0.3 L Glucose 163 H POC Glucose 154 H 164 H Lactic Acid Calcium Phosphorus Magnesium Ferritin Lactate Dehydrogenase C-Reactive Protein NT-Pro-B Natriuret Pep Total Protein Albumin Triglycerides Arterial Blood Glucose Urine pH Ur Specific [place] Coronavirus (PCR) 04/19/21 04/19/21 04/19/21 15:55 21:00 23:13 WBC RBC Hgb Hct MCV MCHC RDW Plt Count Lymph % (Auto) [place] % (Auto) Lymph # (Auto) [place] # (Auto) Seg Neutrophils % Seg Neuts % (Manual) Lymphocytes % (Manual) Monocytes % (Manual) Nucleated RBC % Seg Neutrophils # Seg Neutrophils # Man Lymphocytes # (Manual) Monocytes # (Manual) PT INR APTT D-Dimer Heparin Anti-Xa Level ABG pH POC ABG pCO2 POC ABG pO2 ABG pO2 ABG HCO3 ABG O2 Saturation ABG Base Excess ABG Hemoglobin ABG Oxyhemoglobin ABG Sodium ABG Potassium ABG Glucose Oxyhemoglobin Carboxyhemoglobin Sodium Potassium Chloride Carbon Dioxide BUN Creatinine Glucose POC Glucose 138 H 151 H 147 H Lactic Acid Calcium Phosphorus Magnesium Ferritin Lactate Dehydrogenase C-Reactive Protein NT-Pro-B Natriuret Pep Total Protein Albumin Triglycerides Arterial Blood Glucose Urine pH Ur Specific [place] Coronavirus (PCR) 04/20/21 04/20/21 04/20/21 04:17 04:17 05:15 WBC 13.1 H RBC 2.94 L Hgb 8.8 L Hct 26.8 L MCV MCHC RDW 16.2 H Plt Count Lymph % (Auto) [place] % (Auto) Lymph # (Auto) [place] # (Auto) Seg Neutrophils % Seg Neuts % (Manual) Lymphocytes % (Manual) Monocytes % (Manual) Nucleated RBC % Seg Neutrophils # Seg Neutrophils # Man Lymphocytes # (Manual) Monocytes # (Manual) PT INR APTT D-Dimer Heparin Anti-Xa Level ABG pH POC ABG pCO2 POC ABG pO2 ABG pO2 ABG HCO3 ABG O2 Saturation ABG Base Excess ABG Hemoglobin ABG Oxyhemoglobin ABG Sodium ABG Potassium ABG Glucose Oxyhemoglobin Carboxyhemoglobin Sodium 135 L Potassium Chloride Carbon Dioxide BUN Creatinine 0.3 L Glucose 151 H POC Glucose 126 H Lactic Acid Calcium 8.3 L Phosphorus Magnesium Ferritin Lactate Dehydrogenase C-Reactive Protein NT-Pro-B Natriuret Pep Total Protein Albumin Triglycerides Arterial Blood Glucose Urine pH Ur Specific [place] Coronavirus (PCR) 04/20/21 04/20/21 04/20/21 11:03 16:01 23:54 WBC RBC Hgb Hct MCV MCHC RDW Plt Count Lymph % (Auto) [place] % (Auto) Lymph # (Auto) [place] # (Auto) Seg Neutrophils % Seg Neuts % (Manual) Lymphocytes % (Manual) Monocytes % (Manual) Nucleated RBC % Seg Neutrophils # Seg Neutrophils # Man Lymphocytes # (Manual) Monocytes # (Manual) PT INR APTT D-Dimer Heparin Anti-Xa Level ABG pH POC ABG pCO2 POC ABG pO2 ABG pO2 ABG HCO3 ABG O2 Saturation ABG Base Excess ABG Hemoglobin ABG Oxyhemoglobin ABG Sodium ABG Potassium ABG Glucose Oxyhemoglobin Carboxyhemoglobin Sodium Potassium Chloride Carbon Dioxide BUN Creatinine Glucose POC Glucose 154 H 152 H 145 H Lactic Acid Calcium Phosphorus Magnesium Ferritin Lactate Dehydrogenase C-Reactive Protein NT-Pro-B Natriuret Pep Total Protein Albumin Triglycerides Arterial Blood Glucose Urine pH Ur Specific [place] Coronavirus (PCR) 04/21/21 04/21/21 04/21/21 04:39 11:20 11:37 WBC RBC Hgb Hct MCV MCHC RDW Plt Count Lymph % (Auto) [place] % (Auto) Lymph # (Auto) [place] # (Auto) Seg Neutrophils % Seg Neuts % (Manual) Lymphocytes % (Manual) Monocytes % (Manual) Nucleated RBC % Seg Neutrophils # Seg Neutrophils # Man Lymphocytes # (Manual) Monocytes # (Manual) PT INR APTT D-Dimer Heparin Anti-Xa Level ABG pH 7.503 H POC ABG pCO2 POC ABG pO2 ABG pO2 ABG HCO3 ABG O2 Saturation ABG Base Excess ABG Hemoglobin 10.8 L ABG Oxyhemoglobin ABG Sodium ABG Potassium ABG Glucose Oxyhemoglobin Carboxyhemoglobin 0.1 L Sodium Potassium Chloride Carbon Dioxide BUN Creatinine 0.3 L Glucose 174 H POC Glucose 147 H Lactic Acid Calcium Phosphorus Magnesium Ferritin Lactate Dehydrogenase C-Reactive Protein NT-Pro-B Natriuret Pep Total Protein Albumin Triglycerides Arterial Blood Glucose Urine pH Ur Specific [place] Coronavirus (PCR) 04/21/21 04/21/21 04/21/21 11:48 12:11 17:56 WBC 14.5 H RBC 3.08 L Hgb 9.3 L Hct 28.2 L MCV MCHC RDW 16.5 H Plt Count Lymph % (Auto) [place] % (Auto) Lymph # (Auto) [place] # (Auto) Seg Neutrophils % Seg Neuts % (Manual) Lymphocytes % (Manual) Monocytes % (Manual) Nucleated RBC % Seg Neutrophils # Seg Neutrophils # Man Lymphocytes # (Manual) Monocytes # (Manual) PT INR APTT D-Dimer Heparin Anti-Xa Level ABG pH POC ABG pCO2 POC ABG pO2 ABG pO2 ABG HCO3 ABG O2 Saturation ABG Base Excess ABG Hemoglobin ABG Oxyhemoglobin ABG Sodium ABG Potassium ABG Glucose Oxyhemoglobin Carboxyhemoglobin Sodium Potassium Chloride Carbon Dioxide BUN Creatinine Glucose POC Glucose 154 H 138 H Lactic Acid Calcium Phosphorus Magnesium Ferritin Lactate Dehydrogenase C-Reactive Protein NT-Pro-B Natriuret Pep Total Protein Albumin Triglycerides Arterial Blood Glucose Urine pH Ur Specific [place] Coronavirus (PCR) 04/21/21 04/22/21 04/22/21 23:31 04:30 04:30 WBC 12.3 H RBC 3.20 L Hgb 9.5 L Hct 29.3 L MCV MCHC RDW 16.6 H Plt Count Lymph % (Auto) [place] % (Auto) Lymph # (Auto) [place] # (Auto) Seg Neutrophils % Seg Neuts % (Manual) Lymphocytes % (Manual) Monocytes % (Manual) Nucleated RBC % Seg Neutrophils # Seg Neutrophils # Man Lymphocytes # (Manual) Monocytes # (Manual) PT INR APTT D-Dimer Heparin Anti-Xa Level ABG pH POC ABG pCO2 POC ABG pO2 ABG pO2 ABG HCO3 ABG O2 Saturation ABG Base Excess ABG Hemoglobin ABG Oxyhemoglobin ABG Sodium ABG Potassium ABG Glucose Oxyhemoglobin Carboxyhemoglobin Sodium Potassium Chloride Carbon Dioxide BUN Creatinine 0.3 L Glucose 125 H POC Glucose 162 H Lactic Acid Calcium Phosphorus Magnesium Ferritin Lactate Dehydrogenase C-Reactive Protein NT-Pro-B Natriuret Pep Total Protein Albumin Triglycerides Arterial Blood Glucose Urine pH Ur Specific [place] Coronavirus (PCR) 04/22/21 04/22/21 04/22/21 05:17 12:03 17:22 WBC RBC Hgb Hct MCV MCHC RDW Plt Count Lymph % (Auto) [place] % (Auto) Lymph # (Auto) [place] # (Auto) Seg Neutrophils % Seg Neuts % (Manual) Lymphocytes % (Manual) Monocytes % (Manual) Nucleated RBC % Seg Neutrophils # Seg Neutrophils # Man Lymphocytes # (Manual) Monocytes # (Manual) PT INR APTT D-Dimer Heparin Anti-Xa Level ABG pH POC ABG pCO2 POC ABG pO2 ABG pO2 ABG HCO3 ABG O2 Saturation ABG Base Excess ABG Hemoglobin ABG Oxyhemoglobin ABG Sodium ABG Potassium ABG Glucose Oxyhemoglobin Carboxyhemoglobin Sodium Potassium Chloride Carbon Dioxide BUN Creatinine Glucose POC Glucose 112 H 156 H 133 H Lactic Acid Calcium Phosphorus Magnesium Ferritin Lactate Dehydrogenase C-Reactive Protein NT-Pro-B Natriuret Pep Total Protein Albumin Triglycerides Arterial Blood Glucose Urine pH Ur Specific [place] Coronavirus (PCR) Chest x-ray: report reviewed, image reviewed Additional Studies: XR chest 1V ap 04/17/21 INDICATION / CLINICAL INFORMATION: Hypoxia. COMPARISON: 04/15/2021 FINDINGS: SUPPORT DEVICES: Unchanged. HEART /PULMONARY VASCULATURE: Unchanged. LUNGS / PLEURA: Mild improvement in bilateral pulmonary opacities. No pneumothorax. IMPRESSION: 1. Mild improvement in pulmonary opacities. Allied health notes reviewed: nursing
[2021-04-23] MEDS: hydrALAZINE 25 MG TAB PO SCH ×4 (00:19→22:48)
[2021-04-23] MEDS: APIXABAN 5 MG TAB PO SCH ×3 (00:19→22:46)
[2021-04-23] MEDS: METOPROLOL TARTRATE 25 MG TAB PO SCH ×3 (00:20→22:46)
[2021-04-23] MEDS: FAMOTIDINE 20 MG TAB FEEDTUBE SCH ×3 (00:20→22:48)
[2021-04-23] MEDS: DOXAZOSIN 1 MG TAB PO SCH ×3 (00:20→22:49)
[2021-04-23] MEDS: INSULIN GLARGINE 100 UNITS/ML SUB-Q SCH ×2 (00:21→22:47)
[2021-04-23] MEDS: GLYCOPYRROLATE 1 MG TAB PO SCH (00:22)
[2021-04-23] MEDS: GLYCOPYRROLATE 2 MG TAB PO SCH ×4 (00:27→19:38)
[2021-04-23] MEDS: INSULIN LISPRO 100 UNIT/ML SUB-Q SCH ×4 (01:28→18:16)
[2021-04-23] MEDS: ARFORMOTEROL 15 MCG/2 ML NEBU IH SCH ×3 (08:21→20:16)
--- NOTE | 2021-04-23 10:32 | Progress Note ---
<FLORIANMARISABELLester - Last Filed: 04/23/21 10:54> Assessment and Plan Assessment and plan: This is a 61-year-old man with HTN and DM admitted with COVID-19 pneumonia, acute hypoxic respiratory failure, sepsis Neuro: Acute encephalopathy -s/p fentanyl gtt, Seroquel and Librium -Avoid delirium -Reorientation as needed -Maintain sleep-wake cycle -As needed analgesia -admit: CT head shows no acute intracranial abnormality -Neurology consulted, appreciate recommendations -04/10 CT head shows no focal mass, hemorrhage, hydrocephalus or acute large territorial infarct but shows significant sinus disease with significant opacification of the mastoids bilaterally and mild middle ear cavity disease suggested as well -MRI brain shows no gross evidence of acute or significant intracranial abnormality, exam limited by motion artifact, partial opacification of mastoid air cells bilaterally, more extensively on the right, no definite evidence of fluid within the middle ear cavity. -PT consulted, appreciate recommendations: PT recommends subacute rehab if patient does not qualify for LTAC Cardiac: h/o Hypertension -Cardiology consulted, appreciate recommendations -Blood pressure monitoring per protocol -Echocardiogram shows a mildly dilated ascending aorta, normal LV systolic function, mild concentric LVH, LVEF 60 to 65% -Antihypertensive regimen: Hydralazine, metoprolol, amlodipine Respiratory: Acute hypoxic respiratory failure -CCM consulted, appreciate recommendations -Intubated on 03/10 with 7.50 ETT at 24 at the lips, s/p trach on 03/29 -T-piece -Pulmonary hygiene -SPO2 monitoring GI: Obesity, external hemorrhoids -24 hours +375 mL -PPI -NTR consulted for tube feedings -BR: miralax -As needed Preparation H : Urinary retention -Nephrology consulted, appreciate recommendations -Strict intake and output -Renally dose medications -Avoid nephrotoxic medications -Doxazosin BID -Good catheter removed 04/17 and replaced 04/21 -Lasix -trend BMP ID: Severe sepsis (POA), COVID-19 pneumonia, stenotrophomonas maltophilia in tracheal aspirate, MSSA pneumonia -Infectious disease consulted, appreciate recommendations -S/p remdesivir for 5 days -S/p Actemra 03/10/2021 -f/u blood culture -Monitor WBC and temperature curve -s/p steroids -IV Cefepime started 04/15, increased d/t MO by ID -04/18 procal 0.19 -03/16 Fungitell and histoplasma negative Heme: Acute right upper extremity DVT , superficial thrombus in left gastrocnemius vein -Bilateral lower extremity ultrasound negative for DVT, superficial thrombus in left gastrocnemius vein -repeat BLE Doppler US show superficial thrombus -Repeat bilateral upper extremity ultrasound shows DVT in right upper extremity -heparin drip to eliquis PO -repeat BLE UE dopplar showed superficial thrombus within the gastrocnemius vein unchanged from previous study -CTA chest shows no gross pulm embolism -Trend CBC -SCDs to BLE while in bed -Transfuse hemoglobin less than 7 -Monitor for signs of bleeding Endo: h/o DM -Avoid hypoglycemia -SSI -Accu-Cheks q. 6 -Long-acting insulin, titrate as needed The high probability of a clinically significant, sudden or life threatening deterioration of the [multi] system(s) required my full and direct attention, intervention and personal management. The aggregate critical care time was [60] minutes. This time is in addition to time spent performing reported procedures but includes the following: [x] Data Review and interpretation [x] Patient assessment and monitoring of vital signs [x] Documentation [x] Medication orders and management Disposition Plan: imcu Total Time Spent with Patient (Minutes): 60 History Interval history: This is a 61-year-old male with HTN and DM who presented to the emergency department on 03/09 with shortness of breath and hypoxia via EMS. Patient had apparently been feeling ill for proxy 1 week prior to mentation. Upon EMS arrival patient SPO2 was in the low 70s and improved to upper 80slow 90s on nonrebreather and he was transported to [facility] in the emergency department patient was noted to be hypoxic and placed on a BiPAP with improvement to mentation and hypoxia. CXR showed bilateral patchy infiltrates. Lab work showed leukocytosis, elevated D-dimer, hyponatremia, hypochloremia and elevated COVID-19 markers with elevated BNP. CTA chest showed no pulmonary embolism. Patient was admitted to the hospitalist service as a COVID-19 PUI and started on antibiotics and Decadron with consult to infectious disease. 03/09: The patient was seen and evaluated today, and he was found to be hemodynamically stable. The patient is currently on BiPAP for possible COVID-19 pneumonia. He was started on Lovenox 1mg/kg for DVT ppx in the setting of d- dimer > 10,000. Infectious Disease was consulted. The patient is pending a TTE. 03/10: No acute events overnight, patient was intubated in the afternoon transferred to ICU 03/11: Patient started on Lantus, free water flushes increased, propofol drip resumed and oral antihypertensive added. 03/12: lantus increased, k at 5, will monitor. I updated his family and his stated that he is not vaccinated. He does have HTN and she will call the RN to update home medications. She did say he takes bystolic and amlopine. She inquired about ventilator and lab work. She had no further questions. 03/13: KVNG overnight. Patient remains hyperglycemic, basal insulin adjusted and increased to Q12hrs. Patient is overall net positive since admit X1 dose of IV lasix, repeat BMP this afternoon. 03/14: Failed SAT this am due to increase agitation, tachycardia and hyperte nsion. Remains on propofol and fentanyl gtt. Hyperkalemia treated with PO kayaxalate. Patient responded to IV lasix yesterday additional dose again today for a net negative balance. Repeat BMP this afternoon. Insulin adjusted for hyperglycemia. 03/15: Remains encephalopathic, not following commansd. Orders placed for CT head/Brain and Neuro consulted. Rectal bleeding subsided, most likely due to h emorrhoids. H&H is stable will continue to monitor. Kayaxexalate for high K, repeat labs 4 to 6hrs post treatment. 03/16: Still agiated this am, CT head with no acute Abn. CXR and ABG noted- evolving pna and worsening hypoxia, now with low grade fevers. Sputum culture ordered, IV Abx added, ID on cosult. 03/17: This am ABG noted, hypoxia improved. Continue to wean FiO2 as tolerated. Still with low grade fevers, on IV Abx per ID. Still with periods of confusion despite sedation, seroquel increased. F/u CXR in the am 03/18: still very agitated especially when off sedation, with hypertension and tachycardia. Continue sedation for RASS -2, PRN antihypertensive for SPB greater than 160. This febrile this am, continue current IV abx per ID 03/19: Patient afebrile overnight, continue IV Abx per ID. ABG also improved this am, continue to wean FIO2 as tolerated. PRN antihypertensive for hypertension. 03/20: Hyperkalemia treated with Kayexalate, Good discontinued, vancomycin and cefepime stopped started Bactrim by ID. Steroid taper started. 03/21: BB started for hypertension, Seroquel increased for agitation and Librium started no acute events reported overnight. CCM made vent changes 03/22: Adjustment to anxiolytics, respiratory rate on ventilator per CCM. Patient noted to have bleeding hemorrhoids with clot, requested RN to remove bowel management system and will order Preparation H. 03/23: Given no confirmed DVT or PE (only superficial thrombus noted on Dopplers) therapeutic Lovenox changed to prophylactic Lovenox. Started on doxazosin to help with retention. Consulted surgery for tracheostomy and propofol discontinued. 03/24: Surgery consult completed, patient changed to prophylaxis anticoagulation, started on doxazosin yesterday with plans to remove Good catheter in 48 hours. Patient with slight hypokalemia today and given Kayexalate. No acute events reported overnight. 03/25: No acute events reported overnight. Patient remains on fentanyl drip and on CPAP trial this morning. 03/26: no acute events reported overnight. placed on CPAP this AM, remains on fent/librium. scheduled for trach/peg this week. 03/27: Hypoglycemic this am, will decreased lantus to Qhs. Plan for possible Trach and Peg by Gen Surg this am. Case management to arrange possible LTAC p lacement 03/28: KVNG overnight. Tolerating PST this am. Plan for trach and PEG tomorrow by Gen. Surgery, NPO after midnight. 03/29: No significant changes overnight. Plan for trach and Peg today. Case ma yeimy to arrange possible LTAC placement 03/30. S/p Trach and PEG, no complications noted. High residual yesterday despite NPO status, reglan added X2 days. Per RN no residual this am, patient is to lerating TF. Continue to advance TF as tolerated. Norvasc added for hypertension. Pitting edema also appreciated, some diuretic might be beneficial, will d/w CCM. Continue daily PST as tolerated. 03/31: Patient remains on the vent still on fentanyl gtt with periods of agitation. PRN analgesia added, plan to start weaning off fentanyl gtt. Febrile this am, completed IV abx course. Will panculture for now, ID is also following. 04/01: Still febrile overnight, cultures result pending, continue IV ABx per ID. Failed PST this am. Continue daily PST and vent wean per [facility]. Case management to arrange possible placement. 04/02: KVNG overnight. Fevers improved overnight, continue to follow cultures data, IV ABx per ID. Continue daily PST and wean vent as per [facility]. 04/03: Given low procalcitonin, unchanged CXR and cultures with no growth cefepime was discontinued by ID. LTAC evaluation ongoing. No acute events reported overnight. 04/04: IV Lasix stopped today, Seroquel taper started, fentanyl drip on hold and steroids stopped. Pressure support trial again today. 04/05: Patient had to be restarted on fentanyl drip therefore Seroquel was increased back to 250 twice daily and he was started on scheduled narcotics and efforts to wean fentanyl drip. Doxazosin was increased to twice daily as patient still had retention issues on doxazosin once a day. Patient was denied LTAC placement. CPAP trial today. 04/06: Right upper extremity ultrasound obtained due to edema which showed DVT. Patient started on heparin drip. Overnight patient had hypoxia, tachypnea, tachycardia, hypotension and FiO2 was increased to 100%. RT titrating as tolerated. Plan was to start T-piece trials today. Patient has been denied LTAC placement. 04/07: BLE dopplar, continue lasix per [facility], CXR in AM. Increase in fio2 overnight d/t desaturation. Wean FiO2 as tolerated. 04/08: Patient remains on 65% FiO2, s/p Lasix for 3 doses, hyperkalemia noted today and medically treated. [facility] plans to consult heme/onc once FiO2 decreased. Remains on heparin gtt 04/09: No acute events reported overnight, possible heme-onc consult on Saturday or Saturday regarding upper extremity DVT, wean FiO2 as tolerated. Repeat CT head on Monday 04/10: Patient mentation is unchanged, repeat CT head today. Remains on heparin gtt per protocol. Continue daily PST as tolerated. 04/11: Increased work of breathing and high RR overnight, vent FiO2 increased to 55%. Resolved this am, patient is tolerating PST, no acute distress noted. Wean Fio2 as tolerated for SPO2 above 92%, Follow up CXR and ABG in the am. Antihypertensive regimen adjusted for better BP control. 04/12: Patient with coarse lungs and increased secretion today. This am CXR noted with worsen infiltrate, 40 of Lasix given, repeat CXR in the am. Patient remains afebrile, complete IV Abx course, VSS. Transitioned to PO Eliquis overnight, continue to keep patient net negative for better lung compliance. Continue daily PST as tolerated. 04/13: Patient is off sedation this am. Remains unresponsive. Librium D/C and Seroquel was adjusted to Qhs, PRN analgesia for pain management. Patient responded well to IV lasix, this am CXR with some improvement, additional IV las ix ordered again today. high CO2 also noted from this am, ABG ordered. Patient is tolerating PST this am, SPO2 remains above 95%. Continue daily PST plan to get patient off the vent for possible SNF placemement 04/14: Patient mentation is unchanged despite reducing sedative agents. Will hold all scheduled sedatives agents for now, PRN analgesics for pain management and vent synchrony. Patient spike a temp this am, orders placed for cultures, IV abx per ID. Additional lasix today, F/u CXR in the am. Patient is tolerating PST this am. 04/15: Remains febrile overnight. Culture data pending, back on IV Abx per ID. Gentle fluid management with IV lasix. Keep patient at a net negative balance. Continue daily PST as tolerated. 04/16: Open eyes spontaneously this am, but still not following commands. MRI brain ordered. Continue to avoid any sedative agents. Patient continue to respond very well to IV diuretic, continue gentle diurese X3days as tolerated. Continue daily PST as tolerated. Plan is get patient off the vent for possible SNF placement. Patient remains febrile this am, now cefepine and Vanc, continue IV abx per ID. 04/17: We will repeat procalcitonin per ID, MRI brain pending, SNF placement pending, [facility] plans to start T-piece trials in the morning and will discontinue Good catheter again. 04/18: Overnight patient to be straight cath x2 but did eventually have spontaneous urine output today and Good catheter was not replaced, patient had MRI brain today and was started on T-piece trials. He received Versed for sedation for MRI brain. 04/19: Good catheter was not replaced overnight patient is still voiding, placed on T-piece today, scopolamine and Robinul restarted. 04/20: Patient T-piece trial again today, will decrease bowel regimen in a.m. for entering T-piece for 24 hours obtain gas in the a.m. Cefazolin increased 04/21: Patient remained on trach collar throughout the day, will be transitioned to IMCU. Good catheter was replaced overnight due to retention. 04/22: Patient continues to tolerate Trach collar, still with volume overload will continue with diuresis, monitor electrolytes, aggressive pulmonary toliet, aspiration precautions 04/23: Patient remains on trach collar which he is tolerating. Remains on cefazolin, Cardura and Lasix. Hospitalist Physical - Constitutional Vitals: Temp Pulse Resp BP Pulse Ox 98.4 F 96 H 26 H 128/74 98 04/23/21 04:00 04/23/21 08:00 04/23/21 08:00 04/23/21 07:28 04/23/21 08:00 General appearance: Present: no acute distress, well-nourished, obese, other (Unresponsive) - EENT Eyes: Present: PERRL, EOM intact ENT: hearing intact, clear oral mucosa, dentition normal - Neck Neck: Present: normal ROM - Respiratory Respiratory effort: normal Respiratory: bilateral: CTA, diminished - Cardiovascular Rhythm: regular Heart Sounds: Present: S1 & S2. Absent: systolic murmur, diastolic murmur - Extremities Extremities: no ischemia, pulses intact, pulses symmetrical Peripheral Pulses: within normal limits - Abdominal General gastrointestinal: soft, non-tender, non-distended, normal bowel sounds - Integumentary Integumentary: Present: warm, dry - Psychiatric Psychiatric: cooperative - Neurologic Neurologic: CNII-XII intact, no focal deficits, moves all extremities - Allied Health Allied health notes reviewed: nursing, PT, OT, RT Results - Labs CBC & Chem 7: 04/22/21 04:30 04/22/21 04:30 Labs: Laboratory Last Values WBC 12.3 K/mm3 (4.5-11.0) H 04/22/21 04:30 RBC 3.20 M/mm3 (3.65-5.03) L 04/22/21 04:30 Hgb 9.5 gm/dl (11.8-15.2) L 04/22/21 04:30 Hct 29.3 % (35.5-45.6) L 04/22/21 04:30 MCV 92 fl (84-94) 04/22/21 04:30 MCH 30 pg (28-32) 04/22/21 04:30 MCHC 32 % (32-34) 04/22/21 04:30 RDW 16.6 % (13.2-15.2) H 04/22/21 04:30 Plt Count 418 K/mm3 (140-440) 04/22/21 04:30 Lymph % (Auto) 7.6 % (13.4-35.0) L 03/31/21 13:30 [place] % (Auto) 9.5 % (0.0-7.3) H 03/31/21 13:30 Eos % (Auto) 4.1 % (0.0-4.3) 03/31/21 13:30 Baso % (Auto) 0.5 % (0.0-1.8) 03/31/21 13:30 Lymph # (Auto) 0.6 K/mm3 (1.2-5.4) L 03/31/21 13:30 [place] # (Auto) 0.7 K/mm3 (0.0-0.8) 03/31/21 13:30 Eos # (Auto) 0.3 K/mm3 (0.0-0.4) 03/31/21 13:30 Baso # (Auto) 0.0 K/mm3 (0.0-0.1) 03/31/21 13:30 Add Manual Diff Complete 04/11/21 06:47 Total Counted 100 04/11/21 06:47 Seg Neutrophils % 78.3 % (40.0-70.0) H 03/31/21 13:30 Seg Neuts % (Manual) 76.0 % (40.0-70.0) H 04/11/21 06:47 Band Neutrophils % 2.0 % 04/11/21 06:47 Lymphocytes % (Manual) 10.0 % (13.4-35.0) L 04/11/21 06:47 Reactive Lymphs % (Man) 0 % 04/11/21 06:47 Monocytes % (Manual) 7.0 % (0.0-7.3) 02/15/22 06:47 Eosinophils % (Manual) 4.0 % (0.0-4.3) 04/11/21 06:47 Basophils % (Manual) 0 % (0.0-1.8) 04/11/21 06:47 Metamyelocytes % 1.0 % 04/11/21 06:47 Myelocytes % 0 % 04/11/21 06:47 Promyelocytes % 0 % 04/11/21 06:47 Blast Cells % 0 % 04/11/21 06:47 Nucleated RBC % Not Reportable 04/11/21 06:47 Seg Neutrophils # 5.8 K/mm3 (1.8-7.7) 03/31/21 13:30 Seg Neutrophils # Man 8.3 K/mm3 (1.8-7.7) H 04/11/21 06:47 Band Neutrophils # 0.2 K/mm3 04/11/21 06:47 Lymphocytes # (Manual) 1.1 K/mm3 (1.2-5.4) L 04/11/21 06:47 Abs React Lymphs (Man) 0.0 K/mm3 04/11/21 06:47 Monocytes # (Manual) 0.8 K/mm3 (0.0-0.8) 04/11/21 06:47 Eosinophils # (Manual) 0.4 K/mm3 (0.0-0.4) 04/11/21 06:47 Basophils # (Manual) 0.0 K/mm3 (0.0-0.1) 04/11/21 06:47 Metamyelocytes # 0.1 K/mm3 04/11/21 06:47 Myelocytes # 0.0 K/mm3 04/11/21 06:47 Promyelocytes # 0.0 K/mm3 04/11/21 06:47 Blast Cells # 0.0 K/mm3 04/11/21 06:47 WBC Morphology Not Reportable 04/11/21 06:47 Hypersegmented Neuts Not Reportable 04/11/21 06:47 Hyposegmented Neuts Not Reportable 04/11/21 06:47 Hypogranular Neuts Not Reportable 04/11/21 06:47 Smudge Cells Not Reportable 04/11/21 06:47 Toxic Granulation 1+ 04/11/21 06:47 Toxic Vacuolation Not Reportable 04/11/21 06:47 Dohle Bodies Not Reportable 04/11/21 06:47 Pelger-Huet Anomaly Not Reportable 04/11/21 06:47 Mely Rods Not Reportable 04/11/21 06:47 Platelet Estimate Consistent w auto 04/11/21 06:47 Clumped Platelets Not Reportable 04/11/21 06:47 Plt Clumps, EDTA Not Reportable 04/11/21 06:47 Large Platelets Not Reportable 04/11/21 06:47 Giant Platelets Not Reportable 04/11/21 06:47 Platelet Satelliting Not Reportable 04/11/21 06:47 Plt Morphology Comment Not Reportable 04/11/21 06:47 RBC Morphology Not Reportable 04/11/21 06:47 Dimorphic RBCs Not Reportable 04/11/21 06:47 Polychromasia Not Reportable 04/11/21 06:47 Hypochromasia Not Reportable 04/11/21 06:47 Poikilocytosis Not Reportable 04/11/21 06:47 Anisocytosis 1+ 04/11/21 06:47 Microcytosis Not Reportable 04/11/21 06:47 Macrocytosis Not Reportable 04/11/21 06:47 Spherocytes Not Reportable 04/11/21 06:47 Pappenheimer Bodies Not Reportable 04/11/21 06:47 Sickle Cells Not Reportable 04/11/21 06:47 Target Cells Not Reportable 04/11/21 06:47 Tear Drop Cells Not Reportable 04/11/21 06:47 Ovalocytes Not Reportable 04/11/21 06:47 Helmet Cells Not Reportable 04/11/21 06:47 [place] Bodies Not Reportable 04/11/21 06:47 [place] Rings Not Reportable 04/11/21 06:47 [place] Cells Not Reportable 04/11/21 06:47 Bite Cells Not Reportable 04/11/21 06:47 Crenated Cell Not Reportable 04/11/21 06:47 Elliptocytes Not Reportable 04/11/21 06:47 Acanthocytes (Spur) Not Reportable 04/11/21 06:47 Rouleaux Not Reportable 04/11/21 06:47 Hemoglobin C Crystals Not Reportable 04/11/21 06:47 Schistocytes Not Reportable 04/11/21 06:47 Malaria parasites Not Reportable 04/11/21 06:47 [place] Bodies Not Reportable 04/11/21 06:47 Hem Pathologist Commnt No 04/11/21 06:47 PT 13.4 Sec. (12.2-14.9) 04/11/21 18:17 INR 0.92 (0.87-1.13) 04/11/21 18:17 APTT 61.1 Sec. (24.2-36.6) H* 04/11/21 18:17 D-Dimer 1359.12 ng/mlDDU (0-234) H 03/17/21 04:40 Heparin Anti-Xa Level 1.03 U.I./ml (0.3-0.7) H 04/12/21 05:11 ABG pH 7.503 (7.320-7.450) H 04/21/21 11:37 POC ABG pCO2 43.0 mmHg (32.0-48.0) 04/21/21 11:37 ABG pCO2 50.9 mm Hg 04/18/21 11:30 POC ABG pO2 92.3 mmHg (83-108) 04/21/21 11:37 ABG pO2 108.9 mm Hg (80.0-90.0) H 04/18/21 11:30 POC ABG HCO3 33.0 04/21/21 11:37 ABG HCO3 36.2 mmol/L (20.0-26.0) H 04/18/21 11:30 ABG O2 Saturation 98.2 (0-100) 04/21/21 11:37 ABG O2 Content 12.1 (0.0-44) 04/18/21 11:30 POC ABG Base Excess 9.0 04/21/21 11:37 ABG Base Excess 11.2 mmol/L (-2.0-3.0) H 04/18/21 11:30 ABG Hemoglobin 10.8 (12.0-17.5) L 04/21/21 11:37 ABG Oxyhemoglobin 97.8 (94-98) 04/21/21 11:37 ABG Carboxyhemoglobin 1.7 % (0.0-5.0) 04/18/21 11:30 ABG Methemoglobin 0.3 (0.0-1.5) 04/21/21 11:37 ABG Sodium 134.2 mmol/L (136.0-145.0) L 03/12/21 21:54 ABG Potassium 4.9 mmol/L (3.40-4.50) H 03/12/21 21:54 ABG Chloride 99.0 mmol/L (98-107) 03/12/21 21:54 ABG Glucose 306 mg/dL (65-95) H 03/12/21 21:54 Oxyhemoglobin 95.9 % (95.0-99.0) 04/18/21 11:30 Carboxyhemoglobin 0.1 (0.5-1.5) L 04/21/21 11:37 FiO2 40 % 04/18/21 11:30 FiO2 % 35.0 04/21/21 11:37 Sodium 139 mmol/L (137-145) 04/22/21 04:30 Potassium 3.8 mmol/L (3.6-5.0) 04/22/21 04:30 Chloride 103.1 mmol/L (98-107) 04/22/21 04:30 Carbon Dioxide 25 mmol/L (22-30) 04/22/21 04:30 Anion Gap 15 mmol/L 04/22/21 04:30 BUN 15 mg/dL (9-20) 04/22/21 04:30 Creatinine 0.3 mg/dL (0.8-1.3) L 04/22/21 04:30 Estimated GFR > 60 ml/min 04/22/21 04:30 BUN/Creatinine Ratio 50 % 04/22/21 04:30 Glucose 125 mg/dL (75-100) H 04/22/21 04:30 POC Glucose 156 mg/dL (70-105) H 04/23/21 05:08 Lactic Acid 1.90 mmol/L (0.7-2.0) 03/08/21 23:51 Calcium 9.0 mg/dL (8.4-10.2) 04/22/21 04:30 Phosphorus 3.60 mg/dL (2.5-4.5) 04/17/21 04:25 Magnesium 2.30 mg/dL (1.7-2.3) 04/19/21 04:26 Ferritin 976.4 ng/mL (30.0-300.0) H 03/15/21 04:00 Total Bilirubin 0.20 mg/dL (0.1-1.2) 03/12/21 08:03 AST 10 units/L (5-40) 03/12/21 08:03 ALT 16 units/L (7-56) 03/12/21 08:03 Alkaline Phosphatase 77 units/L (35-129) 03/12/21 08:03 Lactate Dehydrogenase 630 units/L (91-180) H 03/15/21 06:06 C-Reactive Protein 0.40 mg/dL (0.00-1.30) 03/17/21 04:40 NT-Pro-B Natriuret Pep 1053 pg/mL (0-900) H 03/08/21 20:24 Total Protein 6.0 g/dL (6.3-8.2) L 03/12/21 08:03 Albumin 2.9 g/dL (3.9-5) L 03/12/21 08:03 Albumin/Globulin Ratio 0.9 % 03/12/21 08:03 Triglycerides 305 mg/dL (2-149) H 03/22/21 07:26 Procalcitonin 0.19 ng/mL (<0.15) 04/18/21 04:20 Arterial Blood Glucose 306 mg/dL (65-95) H 03/12/21 21:54 Arterial Blood Ionized Calcium 5.0 mg/dL (4.6-5.3) 03/12/21 21:54 Urine Color Yellow (Yellow) 04/14/21 Unknown Urine Turbidity Clear (Clear) 04/14/21 Unknown Urine pH 8.0 (5.0-7.0) H 04/14/21 Unknown Ur Specific [place] 1.009 (1.003-1.030) 04/14/21 Unknown Urine Protein <15 mg/dl mg/dL (Negative) 04/14/21 Unknown Urine Glucose (UA) Neg mg/dL (Negative) 04/14/21 Unknown Urine Ketones Neg mg/dL (Negative) 04/14/21 Unknown Urine Blood Neg (Negative) 04/14/21 Unknown Urine Nitrite Neg (Negative) 04/14/21 Unknown Urine Bilirubin Neg (Negative) 04/14/21 Unknown Urine Urobilinogen 2.0 mg/dL (<2.0) 04/14/21 Unknown Ur Leukocyte Esterase Neg (Negative) 04/14/21 Unknown Urine WBC (Auto) < 1.0 /HPF (0.0-6.0) 04/14/21 Unknown Urine RBC (Auto) < 1.0 /HPF (0.0-6.0) 04/14/21 Unknown Urine Bacteria (Auto) 1+ /HPF (Negative) 03/09/21 04:10 Urine Mucus Few /HPF 03/09/21 04:10 Vancomycin Trough 16.8 ug/mL (5.0-20.0) 04/16/21 14:30 Coronavirus (PCR) Positive (Negative) A 03/09/21 08:00 Miscellaneous Test Flexitest 1 03/16/21 13:14 Good/IV: Voiding Method Indwelling Catheter Active Medications - Current Medications Current Medications: Generic Name Dose Route Start Last Admin Trade Name Freq PRN Reason Stop Dose Admin Acetaminophen 650 mg 03/09/21 01:26 04/18/21 00:48 Acetaminophen 325 Mg Tab PO 650 mg Q4H PRN Administration Pain MILD(1-3)/Fever >100.5/RAYO Albuterol 2.5 mg 03/09/21 01:26 03/18/21 21:06 Albuterol 2.5 Mg/3 Ml Nebu IH 2.5 mg Q4HRT PRN Administration Shortness Of Breath Amlodipine Besylate 10 mg 04/11/21 10:00 04/22/21 09:49 Amlodipine 5 Mg Tab PO 10 mg QDAY BLANCA Administration Apixaban 5 mg 04/18/21 22:00 04/23/21 00:19 Apixaban 5 Mg Tab PO 5 mg Q12HR BLANCA Administration Protocol Arformoterol Tartrate 15 mcg 03/11/21 20:00 04/23/21 08:21 Arformoterol 15 Mcg/2 Ml Nebu IH 15 mcg Q12HRT BLANCA Administration Dextrose 0 ml 03/20/21 10:52 Dextrose 10% *Hypoglycemia IV PRN PRN Hypoglycemia Docusate Sodium 100 mg 04/23/21 10:00 Docusate Sodium 100 Mg/10 Ml Oral Liqd PO BID BLANCA Doxazosin Mesylate 1 mg 04/05/21 22:00 04/23/21 00:20 Doxazosin 1 Mg Tab PO 1 mg BID BLANCA Administration Famotidine 20 mg 03/12/21 22:00 04/23/21 00:20 Famotidine 20 Mg Tab FEEDTUBE 20 mg BID BLANCA Administration Furosemide 40 mg 04/20/21 15:00 04/22/21 09:49 Furosemide 40 Mg/4 Ml Inj IV 04/23/21 14:59 40 mg QDAY BLANCA Administration Glycopyrrolate 2 mg 04/22/21 23:42 04/23/21 07:28 Glycopyrrolate 2 Mg Tab PO 2 mg TID BLANCA Administration Hydralazine HCl 50 mg 03/23/21 14:26 04/23/21 07:28 Hydralazine 25 Mg Tab PO 50 mg Q8HR BLANCA Administration Cefazolin Sodium 3 gm/ Sodium 100 mls @ 100 mls/30 min 04/20/21 14:00 04/23/21 07:14 Chloride IV 100 mls/30 min Q8HR BLANCA Administration Protocol Insulin Glargine 18 units 04/07/21 22:00 04/23/21 00:21 Insulin Glargine 100 Units/Ml SUB-Q 18 units QHS BLANCA Administration Insulin Human Lispro 0 unit 03/11/21 18:00 04/23/21 07:28 Insulin Lispro 100 Unit/Ml SUB-Q 3 unit Q6HR BLANCA Administration Protocol Metoprolol Tartrate 12.5 mg 03/21/21 22:00 04/23/21 00:20 Metoprolol Tartrate 25 Mg Tab PO 12.5 mg BID BLANCA Administration Ondansetron HCl 4 mg 03/09/21 01:26 04/13/21 16:17 Ondansetron 4 Mg/2 Ml Inj IV 4 mg Q8H PRN Administration Nausea And Vomiting Oxycodone HCl 5 mg 04/13/21 12:34 04/20/21 12:47 Oxycodone 5 Mg Tab PO 5 mg Q6HR PRN Administration Pain, Moderate (4-6) Phenyleph/Shark Oil/Min Oil/Petrol 1 applic 03/22/21 17:35 04/06/21 04:04 Pe/Mo/Pet,Wh 10 Applic/28 Gm Tube NM 1 applic Q6HR PRN Administration Hemorrhoids Scopolamine 1 each 04/19/21 13:00 04/22/21 09:49 Scopolamine Transdermal Patch 72 Hr TD 1 each Q3D BLANCA Administration Sodium Chloride 10 ml 03/09/21 10:00 04/23/21 00:23 Sodium Chloride 0.9% 10 Ml Flush Syringe IV 10 ml BID BLANCA Administration Sodium Chloride 10 ml 03/09/21 01:26 04/10/21 21:07 Sodium Chloride 0.9% 10 Ml Flush Syringe IV 10 ml PRN PRN Administration LINE FLUSH Nutrition/Malnutrition Assess - Dietary Evaluation Nutrition/Malnutrition Findings: Nutrition Notes Start: 03/09/21 08:49 Freq: Status: Active Protocol: Document 04/21/21 14:27 [facility] (Rec: 04/21/21 14:29 [facility] [id number]) Nutrition Notes Initial or Follow up Reassessment Current Diagnosis Diabetes,Sepsis,Hypertension, Respiratory Failure Other Pertinent Diagnosis COVID-19, Bilateral Pneumonia. Current Diet TF-Glucerna 1.2 at 70 ml/hr Labs/Tests reviewed Pertinent Medications Lasix Height 5 ft 11 in Weight 122.4 kg Jeff Body Weight (kg) 78.18 BMI 37.6 Weight Status Obese Subjective/Other Information Pt tolerating T-piece trials for past two days. Per RN, will move to [facility]. Pt continues to tolerate TF at goal rate. Percent of energy/protein needs met: 82% energy 78% pro Burn Absent Trauma Absent #1 Nutrition Diagnosis Inadequate oral intake Diagnosis Progress(for reassessment Continues documentation) Is patient on ventilator? No Is Patient Ambulatory and/or Out of Bed No REE-([facility]-confined to bed) 8825.339 Calculation Used for Recommendations 70-80% energy needs Additional Notes Energy needs: 1754-5046 kcal/ day Pro needs 1.3g/kg adjBW: 130g/ day Fluid needs 1ml/kcal Nutrition Intervention Nutrition Support: Continue Glucerna 1.2 at 70ml/ hr with 110ml water flush q4h. Kcal 2,016 Protein (gm) 101 Carbohydrates (gm) 192 Fat (gm) 101 Fluid (mL) 1,352 Fiber (gm) 27 Goal #1 TF tolerance Goal #2 TF to meet at least 75% energy and pro needs Follow-Up By: 04/28/21 Additional Comments F/U: stable TF, wt, resp status <ARABELLA CASTILLO - Last Filed: 04/23/21 15:45> Assessment and Plan Assessment and plan: I saw and evaluated the patient. I agree with the findings and the plan of care as documented in the Nurse Practitioner's~note, with the following corrections and additions. Hospitalist Physical - Constitutional Vitals: Temp Pulse Resp BP Pulse Ox 99.5 F 97 H 34 H 136/76 97 04/23/21 12:00 04/23/21 15:11 04/23/21 14:00 04/23/21 15:11 04/23/21 14:00 Results - Labs CBC & Chem 7: 04/22/21 04:30 04/22/21 04:30 Labs: Laboratory Last Values WBC 12.3 K/mm3 (4.5-11.0) H 04/22/21 04:30 RBC 3.20 M/mm3 (3.65-5.03) L 04/22/21 04:30 Hgb 9.5 gm/dl (11.8-15.2) L 04/22/21 04:30 Hct 29.3 % (35.5-45.6) L 04/22/21 04:30 MCV 92 fl (84-94) 04/22/21 04:30 MCH 30 pg (28-32) 04/22/21 04:30 MCHC 32 % (32-34) 04/22/21 04:30 RDW 16.6 % (13.2-15.2) H 04/22/21 04:30 Plt Count 418 K/mm3 (140-440) 04/22/21 04:30 Lymph % (Auto) 7.6 % (13.4-35.0) L 03/31/21 13:30 [place] % (Auto) 9.5 % (0.0-7.3) H 03/31/21 13:30 Eos % (Auto) 4.1 % (0.0-4.3) 03/31/21 13:30 Baso % (Auto) 0.5 % (0.0-1.8) 03/31/21 13:30 Lymph # (Auto) 0.6 K/mm3 (1.2-5.4) L 03/31/21 13:30 [place] # (Auto) 0.7 K/mm3 (0.0-0.8) 03/31/21 13:30 Eos # (Auto) 0.3 K/mm3 (0.0-0.4) 03/31/21 13:30 Baso # (Auto) 0.0 K/mm3 (0.0-0.1) 03/31/21 13:30 Add Manual Diff Complete 04/11/21 06:47 Total Counted 100 04/11/21 06:47 Seg Neutrophils % 78.3 % (40.0-70.0) H 03/31/21 13:30 Seg Neuts % (Manual) 76.0 % (40.0-70.0) H 04/11/21 06:47 Band Neutrophils % 2.0 % 04/11/21 06:47 Lymphocytes % (Manual) 10.0 % (13.4-35.0) L 04/11/21 06:47 Reactive Lymphs % (Man) 0 % 04/11/21 06:47 Monocytes % (Manual) 7.0 % (0.0-7.3) 04/11/21 06:47 Eosinophils % (Manual) 4.0 % (0.0-4.3) 04/11/21 06:47 Basophils % (Manual) 0 % (0.0-1.8) 04/11/21 06:47 Metamyelocytes % 1.0 % 04/11/21 06:47 Myelocytes % 0 % 04/11/21 06:47 Promyelocytes % 0 % 04/11/21 06:47 Blast Cells % 0 % 04/11/21 06:47 Nucleated RBC % Not Reportable 04/11/21 06:47 Seg Neutrophils # 5.8 K/mm3 (1.8-7.7) 03/31/21 13:30 Seg Neutrophils # Man 8.3 K/mm3 (1.8-7.7) H 04/11/21 06:47 Band Neutrophils # 0.2 K/mm3 04/11/21 06:47 Lymphocytes # (Manual) 1.1 K/mm3 (1.2-5.4) L 04/11/21 06:47 Abs React Lymphs (Man) 0.0 K/mm3 04/11/21 06:47 Monocytes # (Manual) 0.8 K/mm3 (0.0-0.8) 04/11/21 06:47 Eosinophils # (Manual) 0.4 K/mm3 (0.0-0.4) 04/11/21 06:47 Basophils # (Manual) 0.0 K/mm3 (0.0-0.1) 04/11/21 06:47 Metamyelocytes # 0.1 K/mm3 04/11/21 06:47 Myelocytes # 0.0 K/mm3 04/11/21 06:47 Promyelocytes # 0.0 K/mm3 04/11/21 06:47 Blast Cells # 0.0 K/mm3 04/11/21 06:47 WBC Morphology Not Reportable 04/11/21 06:47 Hypersegmented Neuts Not Reportable 04/11/21 06:47 Hyposegmented Neuts Not Reportable 04/11/21 06:47 Hypogranular Neuts Not Reportable 04/11/21 06:47 Smudge Cells Not Reportable 04/11/21 06:47 Toxic Granulation 1+ 04/11/21 06:47 Toxic Vacuolation Not Reportable 04/11/21 06:47 Dohle Bodies Not Reportable 04/11/21 06:47 Pelger-Huet Anomaly Not Reportable 04/11/21 06:47 Mely Rods Not Reportable 04/11/21 06:47 Platelet Estimate Consistent w auto 04/11/21 06:47 Clumped Platelets Not Reportable 04/11/21 06:47 Plt Clumps, EDTA Not Reportable 04/11/21 06:47 Large Platelets Not Reportable 04/11/21 06:47 Giant Platelets Not Reportable 04/11/21 06:47 Platelet Satelliting Not Reportable 04/11/21 06:47 Plt Morphology Comment Not Reportable 04/11/21 06:47 RBC Morphology Not Reportable 04/11/21 06:47 Dimorphic RBCs Not Reportable 04/11/21 06:47 Polychromasia Not Reportable 04/11/21 06:47 Hypochromasia Not Reportable 04/11/21 06:47 Poikilocytosis Not Reportable 04/11/21 06:47 Anisocytosis 1+ 04/11/21 06:47 Microcytosis Not Reportable 04/11/21 06:47 Macrocytosis Not Reportable 04/11/21 06:47 Spherocytes Not Reportable 04/11/21 06:47 Pappenheimer Bodies Not Reportable 04/11/21 06:47 Sickle Cells Not Reportable 04/11/21 06:47 Target Cells Not Reportable 04/11/21 06:47 Tear Drop Cells Not Reportable 04/11/21 06:47 Ovalocytes Not Reportable 04/11/21 06:47 Helmet Cells Not Reportable 04/11/21 06:47 [place] Bodies Not Reportable 04/11/21 06:47 [place] Rings Not Reportable 04/11/21 06:47 [place] Cells Not Reportable 04/11/21 06:47 Bite Cells Not Reportable 04/11/21 06:47 Crenated Cell Not Reportable 04/11/21 06:47 Elliptocytes Not Reportable 04/11/21 06:47 Acanthocytes (Spur) Not Reportable 04/11/21 06:47 Rouleaux Not Reportable 04/11/21 06:47 Hemoglobin C Crystals Not Reportable 04/11/21 06:47 Schistocytes Not Reportable 04/11/21 06:47 Malaria parasites Not Reportable 04/11/21 06:47 [place] Bodies Not Reportable 04/11/21 06:47 Hem Pathologist Commnt No 04/11/21 06:47 PT 13.4 Sec. (12.2-14.9) 04/11/21 18:17 INR 0.92 (0.87-1.13) 04/11/21 18:17 APTT 61.1 Sec. (24.2-36.6) H* 04/11/21 18:17 D-Dimer 1359.12 ng/mlDDU (0-234) H 03/17/21 04:40 Heparin Anti-Xa Level 1.03 U.I./ml (0.3-0.7) H 04/12/21 05:11 ABG pH 7.503 (7.320-7.450) H 04/21/21 11:37 POC ABG pCO2 43.0 mmHg (32.0-48.0) 04/21/21 11:37 ABG pCO2 50.9 mm Hg 04/18/21 11:30 POC ABG pO2 92.3 mmHg (83-108) 04/21/21 11:37 ABG pO2 108.9 mm Hg (80.0-90.0) H 04/18/21 11:30 POC ABG HCO3 33.0 04/21/21 11:37 ABG HCO3 36.2 mmol/L (20.0-26.0) H 04/18/21 11:30 ABG O2 Saturation 98.2 (0-100) 04/21/21 11:37 ABG O2 Content 12.1 (0.0-44) 04/18/21 11:30 POC ABG Base Excess 9.0 04/21/21 11:37 ABG Base Excess 11.2 mmol/L (-2.0-3.0) H 04/18/21 11:30 ABG Hemoglobin 10.8 (12.0-17.5) L 04/21/21 11:37 ABG Oxyhemoglobin 97.8 (94-98) 04/21/21 11:37 ABG Carboxyhemoglobin 1.7 % (0.0-5.0) 04/18/21 11:30 ABG Methemoglobin 0.3 (0.0-1.5) 04/21/21 11:37 ABG Sodium 134.2 mmol/L (136.0-145.0) L 03/12/21 21:54 ABG Potassium 4.9 mmol/L (3.40-4.50) H 03/12/21 21:54 ABG Chloride 99.0 mmol/L (98-107) 03/12/21 21:54 ABG Glucose 306 mg/dL (65-95) H 03/12/21 21:54 Oxyhemoglobin 95.9 % (95.0-99.0) 04/18/21 11:30 Carboxyhemoglobin 0.1 (0.5-1.5) L 04/21/21 11:37 FiO2 40 % 04/18/21 11:30 FiO2 % 35.0 04/21/21 11:37 Sodium 139 mmol/L (137-145) 04/22/21 04:30 Potassium 3.8 mmol/L (3.6-5.0) 04/22/21 04:30 Chloride 103.1 mmol/L (98-107) 04/22/21 04:30 Carbon Dioxide 25 mmol/L (22-30) 04/22/21 04:30 Anion Gap 15 mmol/L 04/22/21 04:30 BUN 15 mg/dL (9-20) 04/22/21 04:30 Creatinine 0.3 mg/dL (0.8-1.3) L 04/22/21 04:30 Estimated GFR > 60 ml/min 04/22/21 04:30 BUN/Creatinine Ratio 50 % 04/22/21 04:30 Glucose 125 mg/dL (75-100) H 04/22/21 04:30 POC Glucose 139 mg/dL (70-105) H 04/23/21 12:59 Lactic Acid 1.90 mmol/L (0.7-2.0) 03/08/21 23:51 Calcium 9.0 mg/dL (8.4-10.2) 04/22/21 04:30 Phosphorus 3.60 mg/dL (2.5-4.5) 04/17/21 04:25 Magnesium 2.30 mg/dL (1.7-2.3) 04/19/21 04:26 Ferritin 976.4 ng/mL (30.0-300.0) H 03/15/21 04:00 Total Bilirubin 0.20 mg/dL (0.1-1.2) 03/12/21 08:03 AST 10 units/L (5-40) 03/12/21 08:03 ALT 16 units/L (7-56) 03/12/21 08:03 Alkaline Phosphatase 77 units/L (35-129) 03/12/21 08:03 Lactate Dehydrogenase 630 units/L (91-180) H 03/15/21 06:06 C-Reactive Protein 0.40 mg/dL (0.00-1.30) 03/17/21 04:40 NT-Pro-B Natriuret Pep 1053 pg/mL (0-900) H 03/08/21 20:24 Total Protein 6.0 g/dL (6.3-8.2) L 03/12/21 08:03 Albumin 2.9 g/dL (3.9-5) L 03/12/21 08:03 Albumin/Globulin Ratio 0.9 % 03/12/21 08:03 Triglycerides 305 mg/dL (2-149) H 03/22/21 07:26 Procalcitonin 0.19 ng/mL (<0.15) 04/18/21 04:20 Arterial Blood Glucose 306 mg/dL (65-95) H 03/12/21 21:54 Arterial Blood Ionized Calcium 5.0 mg/dL (4.6-5.3) 03/12/21 21:54 Urine Color Yellow (Yellow) 04/14/21 Unknown Urine Turbidity Clear (Clear) 04/14/21 Unknown Urine pH 8.0 (5.0-7.0) H 04/14/21 Unknown Ur Specific [place] 1.009 (1.003-1.030) 04/14/21 Unknown Urine Protein <15 mg/dl mg/dL (Negative) 04/14/21 Unknown Urine Glucose (UA) Neg mg/dL (Negative) 04/14/21 Unknown Urine Ketones Neg mg/dL (Negative) 04/14/21 Unknown Urine Blood Neg (Negative) 04/14/21 Unknown Urine Nitrite Neg (Negative) 04/14/21 Unknown Urine Bilirubin Neg (Negative) 04/14/21 Unknown Urine Urobilinogen 2.0 mg/dL (<2.0) 04/14/21 Unknown Ur Leukocyte Esterase Neg (Negative) 04/14/21 Unknown Urine WBC (Auto) < 1.0 /HPF (0.0-6.0) 04/14/21 Unknown Urine RBC (Auto) < 1.0 /HPF (0.0-6.0) 04/14/21 Unknown Urine Bacteria (Auto) 1+ /HPF (Negative) 03/09/21 04:10 Urine Mucus Few /HPF 03/09/21 04:10 Vancomycin Trough 16.8 ug/mL (5.0-20.0) 04/16/21 14:30 Coronavirus (PCR) Positive (Negative) A 03/09/21 08:00 Miscellaneous Test Flexitest 1 03/16/21 13:14 Good/IV: Voiding Method Indwelling Catheter Active Medications - Current Medications Current Medications: Generic Name Dose Route Start Last Admin Trade Name Freq PRN Reason Stop Dose Admin Acetaminophen 650 mg 03/09/21 01:26 04/18/21 00:48 Acetaminophen 325 Mg Tab PO 650 mg Q4H PRN Administration Pain MILD(1-3)/Fever >100.5/RAYO Albuterol 2.5 mg 03/09/21 01:26 03/18/21 21:06 Albuterol 2.5 Mg/3 Ml Nebu IH 2.5 mg Q4HRT PRN Administration Shortness Of Breath Amlodipine Besylate 10 mg 04/11/21 10:00 04/23/21 10:35 Amlodipine 5 Mg Tab PO 10 mg QDAY BLANCA Administration Apixaban 5 mg 04/18/21 22:00 04/23/21 10:35 Apixaban 5 Mg Tab PO 5 mg Q12HR BLANCA Administration Protocol Arformoterol Tartrate 15 mcg 03/11/21 20:00 04/23/21 08:21 Arformoterol 15 Mcg/2 Ml Nebu IH 15 mcg Q12HRT BLANCA Administration Dextrose 0 ml 03/20/21 10:52 Dextrose 10% *Hypoglycemia IV PRN PRN Hypoglycemia Docusate Sodium 100 mg 04/23/21 10:00 04/23/21 10:34 Docusate Sodium 100 Mg/10 Ml Oral Liqd PO 100 mg BID BLANCA Administration Doxazosin Mesylate 1 mg 04/05/21 22:00 04/23/21 10:35 Doxazosin 1 Mg Tab PO 1 mg BID BLANCA Administration Famotidine 20 mg 03/12/21 22:00 04/23/21 10:35 Famotidine 20 Mg Tab FEEDTUBE 20 mg BID BLANCA Administration Glycopyrrolate 2 mg 04/22/21 23:42 04/23/21 15:11 Glycopyrrolate 2 Mg Tab PO 2 mg TID BLANCA Administration Hydralazine HCl 50 mg 03/23/21 14:26 04/23/21 15:11 Hydralazine 25 Mg Tab PO 50 mg Q8HR BLANCA Administration Cefazolin Sodium 3 gm/ Sodium 100 mls @ 100 mls/30 min 04/20/21 14:00 04/23/21 15:11 Chloride IV 100 mls/30 min Q8HR BLANCA Administration Protocol Insulin Glargine 18 units 04/07/21 22:00 04/23/21 00:21 Insulin Glargine 100 Units/Ml SUB-Q 18 units QHS BLANCA Administration Insulin Human Lispro 0 unit 03/11/21 18:00 04/23/21 13:27 Insulin Lispro 100 Unit/Ml SUB-Q Not Given Q6HR [facility] Protocol Metoprolol Tartrate 12.5 mg 03/21/21 22:00 04/23/21 10:35 Metoprolol Tartrate 25 Mg Tab PO 12.5 mg BID BLANCA Administration Ondansetron HCl 4 mg 03/09/21 01:26 04/13/21 16:17 Ondansetron 4 Mg/2 Ml Inj IV 4 mg Q8H PRN Administration Nausea And Vomiting Oxycodone HCl 5 mg 04/13/21 12:34 04/20/21 12:47 Oxycodone 5 Mg Tab PO 5 mg Q6HR PRN Administration Pain, Moderate (4-6) Phenyleph/Shark Oil/Min Oil/Petrol 1 applic 03/22/21 17:35 04/06/21 04:04 Pe/Mo/Pet,Wh 10 Applic/28 Gm Tube NM 1 applic Q6HR PRN Administration Hemorrhoids Scopolamine 1 each 04/19/21 13:00 04/22/21 09:49 Scopolamine Transdermal Patch 72 Hr TD 1 each Q3D BLANCA Administration Sodium Chloride 10 ml 03/09/21 10:00 04/23/21 10:36 Sodium Chloride 0.9% 10 Ml Flush Syringe IV 10 ml BID BLANCA Administration Sodium Chloride 10 ml 03/09/21 01:26 04/10/21 21:07 Sodium Chloride 0.9% 10 Ml Flush Syringe IV 10 ml PRN PRN Administration LINE FLUSH Nutrition/Malnutrition Assess - Dietary Evaluation Nutrition/Malnutrition Findings: Nutrition Notes Start: 03/09/21 08:49 Freq: Status: Active Protocol: Document 04/21/21 14:27 [facility] (Rec: 04/21/21 14:29 [facility] [id number]) Nutrition Notes Initial or Follow up Reassessment Current Diagnosis Diabetes,Sepsis,Hypertension, Respiratory Failure Other Pertinent Diagnosis COVID-19, Bilateral Pneumonia. Current Diet TF-Glucerna 1.2 at 70 ml/hr Labs/Tests reviewed Pertinent Medications Lasix Height 5 ft 11 in Weight 122.4 kg Jeff Body Weight (kg) 78.18 BMI 37.6 Weight Status Obese Subjective/Other Information Pt tolerating T-piece trials for past two days. Per RN, will move to [facility]. Pt continues to tolerate TF at goal rate. Percent of energy/protein needs met: 82% energy 78% pro Burn Absent Trauma Absent #1 Nutrition Diagnosis Inadequate oral intake Diagnosis Progress(for reassessment Continues documentation) Is patient on ventilator? No Is Patient Ambulatory and/or Out of Bed No REE-([facility]-confined to bed) 6812.691 Calculation Used for Recommendations 70-80% energy needs Additional Notes Energy needs: 4804-6160 kcal/ day Pro needs 1.3g/kg adjBW: 130g/ day Fluid needs 1ml/kcal Nutrition Intervention Nutrition Support: Continue Glucerna 1.2 at 70ml/ hr with 110ml water flush q4h. Kcal 2,016 Protein (gm) 101 Carbohydrates (gm) 192 Fat (gm) 101 Fluid (mL) 1,352 Fiber (gm) 27 Goal #1 TF tolerance Goal #2 TF to meet at least 75% energy and pro needs Follow-Up By: 04/28/21 Additional Comments F/U: stable TF, wt, resp status
[2021-04-23] MEDS: DOCUSATE SODIUM 100 MG/10 ML ORAL LIQD PO SCH ×2 (10:34→22:46)
[2021-04-23] MEDS: amLODIPine 5 MG TAB PO SCH (10:35)
[2021-04-23] MEDS: FUROSEMIDE 40 MG/4 ML INJ IV SCH (10:36)
--- NOTE | 2021-04-23 10:56 | Event Note ---
Date: 04/23/21 I called Mr. Mcguire Donna at [phone] for an update and left a voicemail requesting a call back at her convenience to [phone] .
[2021-04-23] MEDS: BUDESONIDE 0.5 MG/2 ML NEBU IH SCH (16:48)
--- NOTE | 2021-04-23 17:26 | Progress Note ---
Assessment and Plan 61-year-old male with past medical history of hypertension and diabetes was brought to the emergency room because of shortness of breath and hypoxia. Patient has been feeling ill for approximately a week. Patient was confused and paramedics were called. Patient's oxygen saturation levels were in the low 70s. 88-90% O2 sat on a NRB mask. Patient does state he has had some cough was unable to give much additional history on arrival. Denies nausea vomiting diarrhea. Patient has not had a COVID test atient hypoxic even on a nonrebreather at 88%. Patient placed on BiPAP and his gait has a better O2 sat and his alertness is improved as well. Patient with by lateral patchy infiltrates in all lobes consistent with COVID-pneumonia. COVID testing is ordered. Umanzor virus test came back positive. Patient given Rocephin ,azithromycin and low-dose Decadron since he is diabetic. Patient to be admitted to the hospital service. Patient also given REMDESIVIR. Later decadron switched to I/V solumedrol. Patients inflammatory markers, D dimer, ferritin CRP are elevated. patient started on anticoagulation. Patient intubated and placed on mechanical ventilation. Patient has tracheostomy, eventually weaned from the ventilator, Patient Obese, Awake Patient is on T tube, FIO2 28%. O2 saturation running 100%. No acute respiratory distress. Patient running low grade temp. Patient has mild leukocytosis. Blood pressure 121/68, Pulse 101, Respirations 25. Chest xray done 04/17/21 reported Mild improvement in pulmonary opacities. Patient is on Apixaban, Brovanna aerosol treatments, Famotidine,Glycopyrrolate and Cefazolin I spent critical care time of 40 minutes, review the chart, examine the patient, review chest xray and lab results, talking to respiratory and nursing staff and work out plan of treatment in this critically ill Covid 19 positive patient. - Patient Problems (1) Acute respiratory failure Current Visit: Yes Status: Acute Plan to address problem: Patient is on T tube, FIO2 28%. Brovanna aerosol treatments. Continue Apixaban Continue famotidine. (2) Diabetes Current Visit: Yes Status: Acute Plan to address problem: Management as per primary care. (3) Hypertension Current Visit: Yes Status: Acute Plan to address problem: Management as per primary care. (4) Coronavirus infection Current Visit: Yes Status: Acute Plan to address problem: Patient was on I/V solumedrol, REMDESIVIR,Apixaban, ceftriaxone and zithromax. Management as per infectious disease specialists. Subjective Date of service: 04/23/21 Principal diagnosis: COVID-19 infection; DM II; Bilateral pneumonia; Obesity; HTN Interval history: 61-year-old male with past medical history of hypertension and diabetes was brought to the emergency room because of shortness of breath and hypoxia. Patient has been feeling ill for approximately a week. Patient was confused and paramedics were called. Patient's oxygen saturation levels were in the low 70s. 88-90% O2 sat on a NRB mask. Patient does state he has had some cough was unable to give much additional history on arrival. Denies nausea vomiting diarrhea. Patient has not had a COVID test Patient hypoxic even on a nonrebreather at 88%. Patient placed on BiPAP and his gait has a better O2 sat and his alertness is improved as well. Patient with by lateral patchy infiltrates in all lobes consistent with COVID-pneumonia. COVID testing is ordered. Umanzor virus test came back positive. Patient given Rocephin ,azithromycin and low-dose Decadron since he is diabetic. Patient to be admitted to the hospital service. Patient also given REMDESIVIR. Later deca dron switched to I/V solumedrol. Patients inflammatory markers, D dimer, ferritin CRP are elevated. patient started on anticoagulation. Patient intubated and placed on mechanical ventilation. Patient has tracheostomy, eventually weaned from the ventilator, Patient Obese, Awake Patient is on T tube, FIO2 28%. O2 saturation running 100%. No acute respiratory distress. Patient running low grade temp. Patient has mild leukocytosis. Blood pressure 121/68, Pulse 101, Respirations 25. Chest xray done 04/17/21 reported Mild improvement in pulmonary opacities. Patient is on Apixaban, Brovanna aerosol treatments, Famotidine,Glycopyrrolate and Cefazolin Objective Vital Signs - 12hr 04/23/21 04/23/21 04/23/21 06:00 07:00 07:28 Temperature Pulse Rate 97 H 95 H 96 H Pulse Rate [ Bilateral Throughout] Pulse Rate [ From Monitor] Respiratory 35 H 18 Rate Respiratory Rate [Bilateral Throughout] Blood Pressure 129/78 129/78 128/74 O2 Sat by Pulse 96 98 Oximetry O2 Sat by Pulse Oximetry [ Assessment] 04/23/21 04/23/21 04/23/21 08:00 08:30 09:00 Temperature 99.1 F Pulse Rate 94 H 96 H Pulse Rate [ 96 H Bilateral Throughout] Pulse Rate [ 97 H From Monitor] Respiratory 31 H 30 H Rate Respiratory 26 H Rate [Bilateral Throughout] Blood Pressure 124/73 128/69 O2 Sat by Pulse 98 96 97 Oximetry O2 Sat by Pulse 98 Oximetry [ Assessment] 04/23/21 04/23/21 04/23/21 10:00 10:35 11:00 Temperature Pulse Rate 101 H 100 H 97 H Pulse Rate [ Bilateral Throughout] Pulse Rate [ From Monitor] Respiratory 32 H 32 H Rate Respiratory Rate [Bilateral Throughout] Blood Pressure 117/66 117/66 125/74 O2 Sat by Pulse 96 Oximetry O2 Sat by Pulse Oximetry [ Assessment] 04/23/21 04/23/21 04/23/21 12:00 13:00 14:00 Temperature 99.5 F Pulse Rate 98 H 97 H 99 H Pulse Rate [ Bilateral Throughout] Pulse Rate [ 98 H From Monitor] Respiratory 26 H 30 H 34 H Rate Respiratory Rate [Bilateral Throughout] Blood Pressure 133/75 136/80 137/83 O2 Sat by Pulse 99 97 97 Oximetry O2 Sat by Pulse Oximetry [ Assessment] 04/23/21 04/23/21 04/23/21 15:00 15:11 16:00 Temperature 99.9 F H Pulse Rate 100 H 97 H 104 H Pulse Rate [ Bilateral Throughout] Pulse Rate [ 102 H From Monitor] Respiratory 26 H 17 Rate Respiratory Rate [Bilateral Throughout] Blood Pressure 137/83 136/76 136/76 O2 Sat by Pulse 99 100 Oximetry O2 Sat by Pulse 99 Oximetry [ Assessment] 04/23/21 17:00 Temperature Pulse Rate 97 H Pulse Rate [ Bilateral Throughout] Pulse Rate [ From Monitor] Respiratory 27 H Rate Respiratory Rate [Bilateral Throughout] Blood Pressure 121/68 O2 Sat by Pulse Oximetry O2 Sat by Pulse Oximetry [ Assessment] Constitutional: no acute distress, alert, other (elderly obese male with mildly increased respiratory effort at rest) Eyes: non-icteric, other ENT: oropharynx moist, other (+ midline tracheostomy) Neck: supple, no lymphadenopathy, lymphadenopathy, no JVD, other (large circumference) Effort: mildly labored Ascultation: Bilateral: diminished breath sounds, rales, rhonchi Percussion: Bilateral: not dull Cardiovascular: regular rate and rhythm, other (tachycardia, S1,S2) Gastrointestinal: normoactive bowel sounds, soft, non-tender, non-distended (protuberant), other (Good in place) Integumentary: normal Extremities: no cyanosis, pulses normal, no ischemia or petechiae, edema (upper extremities), other Neurologic: non-focal exam (grossly), pupils equal and round, CN II-XII normal Psychiatric: other (Patient sleeping at this time.) CBC and BMP: 04/22/21 04:30 04/22/21 04:30 ABG, PT/INR, D-dimer: ABG ABG pH 7.503 (7.320-7.450) H 04/21/21 11:37 POC ABG pCO2 43.0 mmHg (32.0-48.0) 04/21/21 11:37 ABG pCO2 50.9 mm Hg 04/18/21 11:30 POC ABG pO2 92.3 mmHg (83-108) 04/21/21 11:37 ABG pO2 108.9 mm Hg (80.0-90.0) H 04/18/21 11:30 POC ABG HCO3 33.0 04/21/21 11:37 ABG O2 Saturation 98.2 (0-100) 04/21/21 11:37 PT/INR, D-dimer PT 13.4 Sec. (12.2-14.9) 04/11/21 18:17 INR 0.92 (0.87-1.13) 04/11/21 18:17 D-Dimer 1359.12 ng/mlDDU (0-234) H 03/17/21 04:40 Abnormal lab findings: Abnormal Labs 03/08/21 03/08/21 03/08/21 20:24 20:24 20:24 WBC 22.6 H RBC 5.44 H Hgb 15.7 H Hct 49.2 H MCV MCHC RDW Plt Count Lymph % (Auto) [place] % (Auto) Lymph # (Auto) [place] # (Auto) Seg Neutrophils % Seg Neuts % (Manual) 83.0 H Lymphocytes % (Manual) 9.0 L Monocytes % (Manual) 8.0 H Nucleated RBC % Seg Neutrophils # Seg Neutrophils # Man 18.8 H Lymphocytes # (Manual) Monocytes # (Manual) 1.8 H PT 16.1 H INR 1.17 H APTT D-Dimer > 92964 H Heparin Anti-Xa Level ABG pH POC ABG pCO2 POC ABG pO2 ABG pO2 ABG HCO3 ABG O2 Saturation ABG Base Excess ABG Hemoglobin ABG Oxyhemoglobin ABG Sodium ABG Potassium ABG Glucose Oxyhemoglobin Carboxyhemoglobin Sodium 136 L Potassium Chloride 93.9 L Carbon Dioxide BUN 29 H Creatinine Glucose 208 H POC Glucose Lactic Acid Calcium Phosphorus Magnesium Ferritin Lactate Dehydrogenase 624 H C-Reactive Protein 18.00 H NT-Pro-B Natriuret Pep 1053 H Total Protein Albumin Triglycerides Arterial Blood Glucose Urine pH Ur Specific [place] Coronavirus (PCR) 03/08/21 03/08/21 03/09/21 20:24 20:24 04:10 WBC RBC Hgb Hct MCV MCHC RDW Plt Count Lymph % (Auto) [place] % (Auto) Lymph # (Auto) [place] # (Auto) Seg Neutrophils % Seg Neuts % (Manual) Lymphocytes % (Manual) Monocytes % (Manual) Nucleated RBC % Seg Neutrophils # Seg Neutrophils # Man Lymphocytes # (Manual) Monocytes # (Manual) PT INR APTT D-Dimer Heparin Anti-Xa Level ABG pH POC ABG pCO2 POC ABG pO2 ABG pO2 ABG HCO3 ABG O2 Saturation ABG Base Excess ABG Hemoglobin ABG Oxyhemoglobin ABG Sodium ABG Potassium ABG Glucose Oxyhemoglobin Carboxyhemoglobin Sodium Potassium Chloride Carbon Dioxide BUN Creatinine Glucose POC Glucose Lactic Acid 2.10 H* Calcium Phosphorus Magnesium Ferritin 877.5 H Lactate Dehydrogenase C-Reactive Protein NT-Pro-B Natriuret Pep Total Protein Albumin Triglycerides Arterial Blood Glucose Urine pH Ur Specific [place] 1.041 H Coronavirus (PCR) 03/09/21 03/09/21 03/09/21 07:46 08:00 13:01 WBC RBC Hgb Hct MCV MCHC RDW Plt Count Lymph % (Auto) [place] % (Auto) Lymph # (Auto) [place] # (Auto) Seg Neutrophils % Seg Neuts % (Manual) Lymphocytes % (Manual) Monocytes % (Manual) Nucleated RBC % Seg Neutrophils # Seg Neutrophils # Man Lymphocytes # (Manual) Monocytes # (Manual) PT INR APTT D-Dimer Heparin Anti-Xa Level ABG pH POC ABG pCO2 POC ABG pO2 ABG pO2 ABG HCO3 ABG O2 Saturation ABG Base Excess ABG Hemoglobin ABG Oxyhemoglobin ABG Sodium ABG Potassium ABG Glucose Oxyhemoglobin Carboxyhemoglobin Sodium Potassium Chloride Carbon Dioxide BUN Creatinine Glucose POC Glucose 191 H 182 H Lactic Acid Calcium Phosphorus Magnesium Ferritin Lactate Dehydrogenase C-Reactive Protein NT-Pro-B Natriuret Pep Total Protein Albumin Triglycerides Arterial Blood Glucose Urine pH Ur Specific [place] Coronavirus (PCR) Positive A 03/09/21 03/09/21 03/09/21 15:19 17:48 18:10 WBC RBC Hgb Hct MCV MCHC RDW Plt Count Lymph % (Auto) [place] % (Auto) Lymph # (Auto) [place] # (Auto) Seg Neutrophils % Seg Neuts % (Manual) Lymphocytes % (Manual) Monocytes % (Manual) Nucleated RBC % Seg Neutrophils # Seg Neutrophils # Man Lymphocytes # (Manual) Monocytes # (Manual) PT INR APTT D-Dimer Heparin Anti-Xa Level ABG pH POC ABG pCO2 POC ABG pO2 ABG pO2 47.3 L ABG HCO3 26.3 H ABG O2 Saturation 83.7 L ABG Base Excess ABG Hemoglobin ABG Oxyhemoglobin ABG Sodium ABG Potassium ABG Glucose Oxyhemoglobin 82.1 L Carboxyhemoglobin Sodium Potassium Chloride Carbon Dioxide BUN 29 H Creatinine Glucose 214 H POC Glucose 194 H Lactic Acid Calcium Phosphorus Magnesium Ferritin Lactate Dehydrogenase C-Reactive Protein NT-Pro-B Natriuret Pep Total Protein Albumin 3.4 L Triglycerides Arterial Blood Glucose Urine pH Ur Specific [place] Coronavirus (PCR) 03/09/21 03/10/21 03/10/21 20:40 04:29 04:29 WBC 20.6 H RBC 5.07 H Hgb Hct 46.2 H MCV MCHC RDW Plt Count Lymph % (Auto) [place] % (Auto) Lymph # (Auto) [place] # (Auto) Seg Neutrophils % Seg Neuts % (Manual) 94.0 H Lymphocytes % (Manual) 1.0 L Monocytes % (Manual) Nucleated RBC % 3.0 H Seg Neutrophils # Seg Neutrophils # Man 19.4 H Lymphocytes # (Manual) 0.2 L Monocytes # (Manual) 1.0 H PT INR APTT D-Dimer Heparin Anti-Xa Level ABG pH POC ABG pCO2 POC ABG pO2 ABG pO2 ABG HCO3 ABG O2 Saturation ABG Base Excess ABG Hemoglobin ABG Oxyhemoglobin ABG Sodium ABG Potassium ABG Glucose Oxyhemoglobin Carboxyhemoglobin Sodium Potassium Chloride Carbon Dioxide BUN 29 H Creatinine Glucose 188 H POC Glucose 176 H Lactic Acid Calcium Phosphorus Magnesium Ferritin Lactate Dehydrogenase C-Reactive Protein NT-Pro-B Natriuret Pep Total Protein Albumin 3.3 L Triglycerides Arterial Blood Glucose Urine pH Ur Specific [place] Coronavirus (PCR) 03/10/21 03/10/21 03/10/21 05:22 10:27 15:25 WBC RBC Hgb Hct MCV MCHC RDW Plt Count Lymph % (Auto) [place] % (Auto) Lymph # (Auto) [place] # (Auto) Seg Neutrophils % Seg Neuts % (Manual) Lymphocytes % (Manual) Monocytes % (Manual) Nucleated RBC % Seg Neutrophils # Seg Neutrophils # Man Lymphocytes # (Manual) Monocytes # (Manual) PT INR APTT D-Dimer Heparin Anti-Xa Level ABG pH 7.488 H 7.488 H POC ABG pCO2 POC ABG pO2 ABG pO2 47.7 L 50.5 L ABG HCO3 ABG O2 Saturation 86.2 L 87.9 L ABG Base Excess ABG Hemoglobin ABG Oxyhemoglobin ABG Sodium ABG Potassium ABG Glucose Oxyhemoglobin 84.6 L 86.2 L Carboxyhemoglobin Sodium Potassium Chloride Carbon Dioxide BUN Creatinine Glucose POC Glucose 155 H Lactic Acid Calcium Phosphorus Magnesium Ferritin Lactate Dehydrogenase C-Reactive Protein NT-Pro-B Natriuret Pep Total Protein Albumin Triglycerides Arterial Blood Glucose Urine pH Ur Specific [place] Coronavirus (PCR) 03/10/21 03/10/21 03/11/21 18:10 18:55 00:07 WBC RBC Hgb Hct MCV MCHC RDW Plt Count Lymph % (Auto) [place] % (Auto) Lymph # (Auto) [place] # (Auto) Seg Neutrophils % Seg Neuts % (Manual) Lymphocytes % (Manual) Monocytes % (Manual) Nucleated RBC % Seg Neutrophils # Seg Neutrophils # Man Lymphocytes # (Manual) Monocytes # (Manual) PT INR APTT D-Dimer Heparin Anti-Xa Level ABG pH 7.343 L POC ABG pCO2 POC ABG pO2 ABG pO2 60.4 L ABG HCO3 27.9 H ABG O2 Saturation 88.7 L ABG Base Excess ABG Hemoglobin ABG Oxyhemoglobin ABG Sodium ABG Potassium ABG Glucose Oxyhemoglobin 86.9 L Carboxyhemoglobin Sodium Potassium Chloride Carbon Dioxide BUN Creatinine Glucose POC Glucose 187 H 139 H Lactic Acid Calcium Phosphorus Magnesium Ferritin Lactate Dehydrogenase C-Reactive Protein NT-Pro-B Natriuret Pep Total Protein Albumin Triglycerides Arterial Blood Glucose Urine pH Ur Specific [place] Coronavirus (PCR) 03/11/21 03/11/21 03/11/21 02:09 04:28 08:06 WBC RBC Hgb Hct MCV MCHC RDW Plt Count Lymph % (Auto) [place] % (Auto) Lymph # (Auto) [place] # (Auto) Seg Neutrophils % Seg Neuts % (Manual) Lymphocytes % (Manual) Monocytes % (Manual) Nucleated RBC % Seg Neutrophils # Seg Neutrophils # Man Lymphocytes # (Manual) Monocytes # (Manual) PT INR APTT D-Dimer Heparin Anti-Xa Level ABG pH 7.277 L POC ABG pCO2 55.9 H POC ABG pO2 54.4 L ABG pO2 ABG HCO3 ABG O2 Saturation ABG Base Excess ABG Hemoglobin ABG Oxyhemoglobin 83.0 L ABG Sodium ABG Potassium 4.8 H ABG Glucose 180 H Oxyhemoglobin Carboxyhemoglobin Sodium Potassium Chloride Carbon Dioxide BUN 38 H Creatinine Glucose 249 H POC Glucose 278 H Lactic Acid Calcium Phosphorus Magnesium Ferritin Lactate Dehydrogenase C-Reactive Protein NT-Pro-B Natriuret Pep Total Protein Albumin 3.2 L Triglycerides Arterial Blood Glucose 180 H Urine pH Ur Specific [place] Coronavirus (PCR) 03/11/21 03/11/21 03/11/21 11:29 15:06 15:48 WBC RBC Hgb Hct MCV MCHC RDW Plt Count Lymph % (Auto) [place] % (Auto) Lymph # (Auto) [place] # (Auto) Seg Neutrophils % Seg Neuts % (Manual) Lymphocytes % (Manual) Monocytes % (Manual) Nucleated RBC % Seg Neutrophils # Seg Neutrophils # Man Lymphocytes # (Manual) Monocytes # (Manual) PT INR APTT D-Dimer Heparin Anti-Xa Level ABG pH 7.260 L POC ABG pCO2 POC ABG pO2 ABG pO2 53.5 L ABG HCO3 29.5 H ABG O2 Saturation 84.0 L ABG Base Excess ABG Hemoglobin ABG Oxyhemoglobin ABG Sodium ABG Potassium ABG Glucose Oxyhemoglobin 82.3 L Carboxyhemoglobin Sodium Potassium Chloride Carbon Dioxide BUN Creatinine Glucose POC Glucose 288 H 295 H Lactic Acid Calcium Phosphorus Magnesium Ferritin Lactate Dehydrogenase C-Reactive Protein NT-Pro-B Natriuret Pep Total Protein Albumin Triglycerides Arterial Blood Glucose Urine pH Ur Specific [place] Coronavirus (PCR) 03/12/21 03/12/21 03/12/21 00:01 05:24 08:03 WBC RBC Hgb Hct MCV MCHC RDW Plt Count Lymph % (Auto) [place] % (Auto) Lymph # (Auto) [place] # (Auto) Seg Neutrophils % Seg Neuts % (Manual) Lymphocytes % (Manual) Monocytes % (Manual) Nucleated RBC % Seg Neutrophils # Seg Neutrophils # Man Lymphocytes # (Manual) Monocytes # (Manual) PT INR APTT D-Dimer Heparin Anti-Xa Level ABG pH POC ABG pCO2 POC ABG pO2 ABG pO2 ABG HCO3 ABG O2 Saturation ABG Base Excess ABG Hemoglobin ABG Oxyhemoglobin ABG Sodium ABG Potassium ABG Glucose Oxyhemoglobin Carboxyhemoglobin Sodium 135 L Potassium Chloride Carbon Dioxide BUN 48 H Creatinine Glucose 358 H POC Glucose 304 H 310 H Lactic Acid Calcium Phosphorus Magnesium Ferritin Lactate Dehydrogenase C-Reactive Protein NT-Pro-B Natriuret Pep Total Protein 6.0 L Albumin 2.9 L Triglycerides Arterial Blood Glucose Urine pH Ur Specific [place] Coronavirus (PCR) 03/12/21 03/12/21 03/12/21 08:03 10:43 11:31 WBC 14.6 H RBC Hgb Hct MCV MCHC RDW Plt Count Lymph % (Auto) [place] % (Auto) Lymph # (Auto) [place] # (Auto) Seg Neutrophils % Seg Neuts % (Manual) Lymphocytes % (Manual) Monocytes % (Manual) Nucleated RBC % Seg Neutrophils # Seg Neutrophils # Man Lymphocytes # (Manual) Monocytes # (Manual) PT INR APTT D-Dimer Heparin Anti-Xa Level ABG pH 7.248 L POC ABG pCO2 POC ABG pO2 ABG pO2 73.7 L ABG HCO3 32.0 H ABG O2 Saturation 93.9 L ABG Base Excess ABG Hemoglobin ABG Oxyhemoglobin ABG Sodium ABG Potassium ABG Glucose Oxyhemoglobin 92.1 L Carboxyhemoglobin Sodium Potassium Chloride Carbon Dioxide BUN Creatinine Glucose POC Glucose 359 H Lactic Acid Calcium Phosphorus Magnesium Ferritin Lactate Dehydrogenase C-Reactive Protein NT-Pro-B Natriuret Pep Total Protein Albumin Triglycerides Arterial Blood Glucose Urine pH Ur Specific [place] Coronavirus (PCR) 03/12/21 03/12/21 03/13/21 17:20 21:54 00:02 WBC RBC Hgb Hct MCV MCHC RDW Plt Count Lymph % (Auto) [place] % (Auto) Lymph # (Auto) [place] # (Auto) Seg Neutrophils % Seg Neuts % (Manual) Lymphocytes % (Manual) Monocytes % (Manual) Nucleated RBC % Seg Neutrophils # Seg Neutrophils # Man Lymphocytes # (Manual) Monocytes # (Manual) PT INR APTT D-Dimer Heparin Anti-Xa Level ABG pH 7.238 L POC ABG pCO2 71.9 H POC ABG pO2 53.6 L ABG pO2 ABG HCO3 ABG O2 Saturation ABG Base Excess ABG Hemoglobin ABG Oxyhemoglobin 84.8 L ABG Sodium 134.2 L ABG Potassium 4.9 H ABG Glucose 306 H Oxyhemoglobin Carboxyhemoglobin Sodium Potassium Chloride Carbon Dioxide BUN Creatinine Glucose POC Glucose 374 H 308 H Lactic Acid Calcium Phosphorus Magnesium Ferritin Lactate Dehydrogenase C-Reactive Protein NT-Pro-B Natriuret Pep Total Protein Albumin Triglycerides Arterial Blood Glucose 306 H Urine pH Ur Specific [place] Coronavirus (PCR) 03/13/21 03/13/21 03/13/21 05:22 05:44 05:44 WBC 13.9 H RBC Hgb Hct MCV MCHC RDW Plt Count Lymph % (Auto) [place] % (Auto) Lymph # (Auto) [place] # (Auto) Seg Neutrophils % Seg Neuts % (Manual) Lymphocytes % (Manual) Monocytes % (Manual) Nucleated RBC % Seg Neutrophils # Seg Neutrophils # Man Lymphocytes # (Manual) Monocytes # (Manual) PT INR APTT D-Dimer 3567.97 H Heparin Anti-Xa Level ABG pH POC ABG pCO2 POC ABG pO2 ABG pO2 ABG HCO3 ABG O2 Saturation ABG Base Excess ABG Hemoglobin ABG Oxyhemoglobin ABG Sodium ABG Potassium ABG Glucose Oxyhemoglobin Carboxyhemoglobin Sodium Potassium Chloride Carbon Dioxide BUN Creatinine Glucose POC Glucose 316 H Lactic Acid Calcium Phosphorus Magnesium Ferritin Lactate Dehydrogenase C-Reactive Protein NT-Pro-B Natriuret Pep Total Protein Albumin Triglycerides Arterial Blood Glucose Urine pH Ur Specific [place] Coronavirus (PCR) 03/13/21 03/13/21 03/13/21 05:44 05:44 11:15 WBC RBC Hgb Hct MCV MCHC RDW Plt Count Lymph % (Auto) [place] % (Auto) Lymph # (Auto) [place] # (Auto) Seg Neutrophils % Seg Neuts % (Manual) Lymphocytes % (Manual) Monocytes % (Manual) Nucleated RBC % Seg Neutrophils # Seg Neutrophils # Man Lymphocytes # (Manual) Monocytes # (Manual) PT INR APTT D-Dimer Heparin Anti-Xa Level ABG pH 7.310 L POC ABG pCO2 POC ABG pO2 ABG pO2 52.3 L ABG HCO3 34.1 H ABG O2 Saturation 86.8 L ABG Base Excess 5.5 H ABG Hemoglobin 13.8 L ABG Oxyhemoglobin ABG Sodium ABG Potassium ABG Glucose Oxyhemoglobin 85.1 L Carboxyhemoglobin Sodium Potassium Chloride Carbon Dioxide BUN Creatinine Glucose POC Glucose Lactic Acid Calcium Phosphorus Magnesium Ferritin 858.7 H Lactate Dehydrogenase 348 H C-Reactive Protein 2.80 H NT-Pro-B Natriuret Pep Total Protein Albumin Triglycerides Arterial Blood Glucose Urine pH Ur Specific [place] Coronavirus (PCR) 03/13/21 03/13/21 03/13/21 11:21 15:47 19:23 WBC RBC Hgb Hct MCV MCHC RDW Plt Count Lymph % (Auto) [place] % (Auto) Lymph # (Auto) [place] # (Auto) Seg Neutrophils % Seg Neuts % (Manual) Lymphocytes % (Manual) Monocytes % (Manual) Nucleated RBC % Seg Neutrophils # Seg Neutrophils # Man Lymphocytes # (Manual) Monocytes # (Manual) PT INR APTT D-Dimer Heparin Anti-Xa Level ABG pH POC ABG pCO2 POC ABG pO2 ABG pO2 ABG HCO3 ABG O2 Saturation ABG Base Excess ABG Hemoglobin ABG Oxyhemoglobin ABG Sodium ABG Potassium ABG Glucose Oxyhemoglobin Carboxyhemoglobin Sodium 136 L Potassium 5.9 H Chloride Carbon Dioxide BUN 50 H Creatinine Glucose 397 H POC Glucose 322 H 317 H Lactic Acid Calcium Phosphorus Magnesium Ferritin Lactate Dehydrogenase C-Reactive Protein NT-Pro-B Natriuret Pep Total Protein Albumin Triglycerides Arterial Blood Glucose Urine pH Ur Specific [place] Coronavirus (PCR) 03/13/21 03/14/21 03/14/21 23:46 05:32 05:50 WBC 11.6 H RBC Hgb Hct MCV MCHC RDW Plt Count Lymph % (Auto) [place] % (Auto) Lymph # (Auto) [place] # (Auto) Seg Neutrophils % Seg Neuts % (Manual) Lymphocytes % (Manual) Monocytes % (Manual) Nucleated RBC % Seg Neutrophils # Seg Neutrophils # Man Lymphocytes # (Manual) Monocytes # (Manual) PT INR APTT D-Dimer Heparin Anti-Xa Level ABG pH POC ABG pCO2 POC ABG pO2 ABG pO2 ABG HCO3 ABG O2 Saturation ABG Base Excess ABG Hemoglobin ABG Oxyhemoglobin ABG Sodium ABG Potassium ABG Glucose Oxyhemoglobin Carboxyhemoglobin Sodium Potassium Chloride Carbon Dioxide BUN Creatinine Glucose POC Glucose 332 H 316 H Lactic Acid Calcium Phosphorus Magnesium Ferritin Lactate Dehydrogenase C-Reactive Protein NT-Pro-B Natriuret Pep Total Protein Albumin Triglycerides Arterial Blood Glucose Urine pH Ur Specific [place] Coronavirus (PCR) 03/14/21 03/14/21 03/14/21 05:50 11:33 16:53 WBC RBC Hgb Hct MCV MCHC RDW Plt Count Lymph % (Auto) [place] % (Auto) Lymph # (Auto) [place] # (Auto) Seg Neutrophils % Seg Neuts % (Manual) Lymphocytes % (Manual) Monocytes % (Manual) Nucleated RBC % Seg Neutrophils # Seg Neutrophils # Man Lymphocytes # (Manual) Monocytes # (Manual) PT INR APTT D-Dimer Heparin Anti-Xa Level ABG pH POC ABG pCO2 POC ABG pO2 ABG pO2 ABG HCO3 ABG O2 Saturation ABG Base Excess ABG Hemoglobin ABG Oxyhemoglobin ABG Sodium ABG Potassium ABG Glucose Oxyhemoglobin Carboxyhemoglobin Sodium Potassium 5.9 H Chloride Carbon Dioxide 31 H BUN 48 H Creatinine Glucose 380 H POC Glucose 315 H 235 H Lactic Acid Calcium Phosphorus Magnesium 3.40 H Ferritin Lactate Dehydrogenase C-Reactive Protein NT-Pro-B Natriuret Pep Total Protein Albumin Triglycerides Arterial Blood Glucose Urine pH Ur Specific [place] Coronavirus (PCR) 03/14/21 03/14/21 03/15/21 18:34 23:27 01:22 WBC RBC Hgb Hct 46.3 H MCV MCHC RDW Plt Count Lymph % (Auto) [place] % (Auto) Lymph # (Auto) [place] # (Auto) Seg Neutrophils % Seg Neuts % (Manual) Lymphocytes % (Manual) Monocytes % (Manual) Nucleated RBC % Seg Neutrophils # Seg Neutrophils # Man Lymphocytes # (Manual) Monocytes # (Manual) PT INR APTT D-Dimer Heparin Anti-Xa Level ABG pH POC ABG pCO2 POC ABG pO2 ABG pO2 ABG HCO3 ABG O2 Saturation ABG Base Excess ABG Hemoglobin ABG Oxyhemoglobin ABG Sodium ABG Potassium ABG Glucose Oxyhemoglobin Carboxyhemoglobin Sodium 146 H Potassium Chloride Carbon Dioxide 34 H BUN 49 H Creatinine Glucose 285 H POC Glucose 203 H Lactic Acid Calcium Phosphorus Magnesium Ferritin Lactate Dehydrogenase C-Reactive Protein NT-Pro-B Natriuret Pep Total Protein Albumin Triglycerides Arterial Blood Glucose Urine pH Ur Specific [place] Coronavirus (PCR) 03/15/21 03/15/21 03/15/21 04:00 06:06 06:06 WBC RBC Hgb Hct MCV MCHC RDW Plt Count Lymph % (Auto) [place] % (Auto) Lymph # (Auto) [place] # (Auto) Seg Neutrophils % Seg Neuts % (Manual) Lymphocytes % (Manual) Monocytes % (Manual) Nucleated RBC % Seg Neutrophils # Seg Neutrophils # Man Lymphocytes # (Manual) Monocytes # (Manual) PT INR APTT D-Dimer 1781.79 H Heparin Anti-Xa Level ABG pH POC ABG pCO2 POC ABG pO2 ABG pO2 ABG HCO3 ABG O2 Saturation ABG Base Excess ABG Hemoglobin ABG Oxyhemoglobin ABG Sodium ABG Potassium ABG Glucose Oxyhemoglobin Carboxyhemoglobin Sodium 148 H Potassium 5.7 H D Chloride 108.0 H Carbon Dioxide 31 H BUN 46 H Creatinine Glucose 139 H POC Glucose Lactic Acid Calcium Phosphorus 4.80 H D Magnesium 3.00 H Ferritin 976.4 H Lactate Dehydrogenase 630 H C-Reactive Protein NT-Pro-B Natriuret Pep Total Protein Albumin Triglycerides Arterial Blood Glucose Urine pH Ur Specific [place] Coronavirus (PCR) 03/15/21 03/15/21 03/15/21 11:56 14:05 17:09 WBC RBC Hgb Hct MCV MCHC RDW Plt Count Lymph % (Auto) [place] % (Auto) Lymph # (Auto) [place] # (Auto) Seg Neutrophils % Seg Neuts % (Manual) Lymphocytes % (Manual) Monocytes % (Manual) Nucleated RBC % Seg Neutrophils # Seg Neutrophils # Man Lymphocytes # (Manual) Monocytes # (Manual) PT INR APTT D-Dimer Heparin Anti-Xa Level ABG pH POC ABG pCO2 POC ABG pO2 ABG pO2 52.1 L ABG HCO3 36.6 H ABG O2 Saturation 87.6 L ABG Base Excess 9.5 H ABG Hemoglobin ABG Oxyhemoglobin ABG Sodium ABG Potassium ABG Glucose Oxyhemoglobin 85.7 L Carboxyhemoglobin Sodium Potassium Chloride Carbon Dioxide BUN Creatinine Glucose POC Glucose 219 H 263 H Lactic Acid Calcium Phosphorus Magnesium Ferritin Lactate Dehydrogenase C-Reactive Protein NT-Pro-B Natriuret Pep Total Protein Albumin Triglycerides Arterial Blood Glucose Urine pH Ur Specific [place] Coronavirus (PCR) 03/16/21 03/16/21 03/16/21 00:32 04:11 04:11 WBC 11.9 H RBC Hgb Hct MCV MCHC 30 L RDW Plt Count Lymph % (Auto) [place] % (Auto) Lymph # (Auto) [place] # (Auto) Seg Neutrophils % Seg Neuts % (Manual) Lymphocytes % (Manual) Monocytes % (Manual) Nucleated RBC % Seg Neutrophils # Seg Neutrophils # Man Lymphocytes # (Manual) Monocytes # (Manual) PT INR APTT D-Dimer Heparin Anti-Xa Level ABG pH POC ABG pCO2 POC ABG pO2 ABG pO2 ABG HCO3 ABG O2 Saturation ABG Base Excess ABG Hemoglobin ABG Oxyhemoglobin ABG Sodium ABG Potassium ABG Glucose Oxyhemoglobin Carboxyhemoglobin Sodium 151 H Potassium Chloride Carbon Dioxide 35 H BUN 48 H Creatinine Glucose 152 H POC Glucose 165 H Lactic Acid Calcium Phosphorus Magnesium Ferritin Lactate Dehydrogenase C-Reactive Protein NT-Pro-B Natriuret Pep Total Protein Albumin Triglycerides Arterial Blood Glucose Urine pH Ur Specific [place] Coronavirus (PCR) 03/16/21 03/16/21 03/16/21 04:11 05:26 11:35 WBC RBC Hgb Hct MCV MCHC RDW Plt Count Lymph % (Auto) [place] % (Auto) Lymph # (Auto) [place] # (Auto) Seg Neutrophils % Seg Neuts % (Manual) Lymphocytes % (Manual) Monocytes % (Manual) Nucleated RBC % Seg Neutrophils # Seg Neutrophils # Man Lymphocytes # (Manual) Monocytes # (Manual) PT INR APTT D-Dimer Heparin Anti-Xa Level ABG pH POC ABG pCO2 POC ABG pO2 ABG pO2 ABG HCO3 ABG O2 Saturation ABG Base Excess ABG Hemoglobin ABG Oxyhemoglobin ABG Sodium ABG Potassium ABG Glucose Oxyhemoglobin Carboxyhemoglobin Sodium Potassium Chloride Carbon Dioxide BUN Creatinine Glucose POC Glucose 162 H 187 H Lactic Acid Calcium Phosphorus Magnesium Ferritin Lactate Dehydrogenase C-Reactive Protein NT-Pro-B Natriuret Pep Total Protein Albumin Triglycerides 267 H Arterial Blood Glucose Urine pH Ur Specific [place] Coronavirus (PCR) 03/16/21 03/16/21 03/16/21 17:29 22:25 23:22 WBC RBC Hgb Hct MCV MCHC RDW Plt Count Lymph % (Auto) [place] % (Auto) Lymph # (Auto) [place] # (Auto) Seg Neutrophils % Seg Neuts % (Manual) Lymphocytes % (Manual) Monocytes % (Manual) Nucleated RBC % Seg Neutrophils # Seg Neutrophils # Man Lymphocytes # (Manual) Monocytes # (Manual) PT INR APTT D-Dimer Heparin Anti-Xa Level ABG pH POC ABG pCO2 POC ABG pO2 ABG pO2 ABG HCO3 ABG O2 Saturation ABG Base Excess ABG Hemoglobin ABG Oxyhemoglobin ABG Sodium ABG Potassium ABG Glucose Oxyhemoglobin Carboxyhemoglobin Sodium Potassium Chloride Carbon Dioxide BUN Creatinine Glucose POC Glucose 237 H 165 H 189 H Lactic Acid Calcium Phosphorus Magnesium Ferritin Lactate Dehydrogenase C-Reactive Protein NT-Pro-B Natriuret Pep Total Protein Albumin Triglycerides Arterial Blood Glucose Urine pH Ur Specific [place] Coronavirus (PCR) 03/17/21 03/17/21 03/17/21 04:40 04:40 04:40 WBC 14.1 H RBC Hgb Hct MCV MCHC RDW 15.3 H Plt Count Lymph % (Auto) 12.6 L [place] % (Auto) 11.3 H Lymph # (Auto) [place] # (Auto) 1.6 H Seg Neutrophils % 74.9 H Seg Neuts % (Manual) Lymphocytes % (Manual) Monocytes % (Manual) Nucleated RBC % Seg Neutrophils # 10.5 H Seg Neutrophils # Man Lymphocytes # (Manual) Monocytes # (Manual) PT INR APTT D-Dimer 1359.12 H Heparin Anti-Xa Level ABG pH POC ABG pCO2 POC ABG pO2 ABG pO2 ABG HCO3 ABG O2 Saturation ABG Base Excess ABG Hemoglobin ABG Oxyhemoglobin ABG Sodium ABG Potassium ABG Glucose Oxyhemoglobin Carboxyhemoglobin Sodium 148 H Potassium Chloride 107.5 H Carbon Dioxide 33 H BUN 42 H Creatinine Glucose 183 H POC Glucose Lactic Acid Calcium Phosphorus Magnesium 2.70 H Ferritin Lactate Dehydrogenase C-Reactive Protein NT-Pro-B Natriuret Pep Total Protein Albumin Triglycerides Arterial Blood Glucose Urine pH Ur Specific [place] Coronavirus (PCR) 03/17/21 03/17/21 03/17/21 05:53 11:05 11:51 WBC RBC Hgb Hct MCV MCHC RDW Plt Count Lymph % (Auto) [place] % (Auto) Lymph # (Auto) [place] # (Auto) Seg Neutrophils % Seg Neuts % (Manual) Lymphocytes % (Manual) Monocytes % (Manual) Nucleated RBC % Seg Neutrophils # Seg Neutrophils # Man Lymphocytes # (Manual) Monocytes # (Manual) PT INR APTT D-Dimer Heparin Anti-Xa Level ABG pH POC ABG pCO2 POC ABG pO2 ABG pO2 ABG HCO3 35.7 H ABG O2 Saturation ABG Base Excess 8.7 H ABG Hemoglobin ABG Oxyhemoglobin ABG Sodium ABG Potassium ABG Glucose Oxyhemoglobin 94.2 L Carboxyhemoglobin Sodium Potassium Chloride Carbon Dioxide BUN Creatinine Glucose POC Glucose 176 H 197 H Lactic Acid Calcium Phosphorus Magnesium Ferritin Lactate Dehydrogenase C-Reactive Protein NT-Pro-B Natriuret Pep Total Protein Albumin Triglycerides Arterial Blood Glucose Urine pH Ur Specific [place] Coronavirus (PCR) 03/17/21 03/17/21 03/17/21 16:54 21:10 23:33 WBC RBC Hgb Hct MCV MCHC RDW Plt Count Lymph % (Auto) [place] % (Auto) Lymph # (Auto) [place] # (Auto) Seg Neutrophils % Seg Neuts % (Manual) Lymphocytes % (Manual) Monocytes % (Manual) Nucleated RBC % Seg Neutrophils # Seg Neutrophils # Man Lymphocytes # (Manual) Monocytes # (Manual) PT INR APTT D-Dimer Heparin Anti-Xa Level ABG pH POC ABG pCO2 POC ABG pO2 ABG pO2 ABG HCO3 ABG O2 Saturation ABG Base Excess ABG Hemoglobin ABG Oxyhemoglobin ABG Sodium ABG Potassium ABG Glucose Oxyhemoglobin Carboxyhemoglobin Sodium Potassium Chloride Carbon Dioxide BUN Creatinine Glucose POC Glucose 135 H 160 H 138 H Lactic Acid Calcium Phosphorus Magnesium Ferritin Lactate Dehydrogenase C-Reactive Protein NT-Pro-B Natriuret Pep Total Protein Albumin Triglycerides Arterial Blood Glucose Urine pH Ur Specific [place] Coronavirus (PCR) 03/18/21 03/18/21 03/18/21 04:18 04:50 05:43 WBC RBC Hgb Hct MCV MCHC RDW Plt Count Lymph % (Auto) [place] % (Auto) Lymph # (Auto) [place] # (Auto) Seg Neutrophils % Seg Neuts % (Manual) Lymphocytes % (Manual) Monocytes % (Manual) Nucleated RBC % Seg Neutrophils # Seg Neutrophils # Man Lymphocytes # (Manual) Monocytes # (Manual) PT INR APTT D-Dimer Heparin Anti-Xa Level ABG pH POC ABG pCO2 POC ABG pO2 ABG pO2 59.8 L ABG HCO3 36.5 H ABG O2 Saturation 90.7 L ABG Base Excess 9.4 H ABG Hemoglobin 12.0 L ABG Oxyhemoglobin ABG Sodium ABG Potassium ABG Glucose Oxyhemoglobin 88.9 L Carboxyhemoglobin Sodium Potassium Chloride 107.2 H Carbon Dioxide 34 H BUN 38 H Creatinine 0.7 L Glucose 136 H POC Glucose 128 H Lactic Acid Calcium Phosphorus Magnesium Ferritin Lactate Dehydrogenase C-Reactive Protein NT-Pro-B Natriuret Pep Total Protein Albumin Triglycerides Arterial Blood Glucose Urine pH Ur Specific [place] Coronavirus (PCR) 03/18/21 03/18/21 03/18/21 11:20 17:35 23:35 WBC RBC Hgb Hct MCV MCHC RDW Plt Count Lymph % (Auto) [place] % (Auto) Lymph # (Auto) [place] # (Auto) Seg Neutrophils % Seg Neuts % (Manual) Lymphocytes % (Manual) Monocytes % (Manual) Nucleated RBC % Seg Neutrophils # Seg Neutrophils # Man Lymphocytes # (Manual) Monocytes # (Manual) PT INR APTT D-Dimer Heparin Anti-Xa Level ABG pH POC ABG pCO2 POC ABG pO2 ABG pO2 70.7 L ABG HCO3 33.6 H ABG O2 Saturation ABG Base Excess 8.0 H ABG Hemoglobin ABG Oxyhemoglobin ABG Sodium ABG Potassium ABG Glucose Oxyhemoglobin 93.7 L Carboxyhemoglobin Sodium Potassium Chloride Carbon Dioxide BUN Creatinine Glucose POC Glucose 189 H 144 H Lactic Acid Calcium Phosphorus Magnesium Ferritin Lactate Dehydrogenase C-Reactive Protein NT-Pro-B Natriuret Pep Total Protein Albumin Triglycerides Arterial Blood Glucose Urine pH Ur Specific [place] Coronavirus (PCR) 03/19/21 03/19/21 03/19/21 02:35 04:20 04:20 WBC 14.0 H RBC Hgb Hct MCV MCHC RDW Plt Count Lymph % (Auto) [place] % (Auto) Lymph # (Auto) [place] # (Auto) Seg Neutrophils % Seg Neuts % (Manual) Lymphocytes % (Manual) Monocytes % (Manual) Nucleated RBC % Seg Neutrophils # Seg Neutrophils # Man Lymphocytes # (Manual) Monocytes # (Manual) PT INR APTT D-Dimer Heparin Anti-Xa Level ABG pH POC ABG pCO2 POC ABG pO2 ABG pO2 ABG HCO3 32.0 H ABG O2 Saturation ABG Base Excess 5.2 H ABG Hemoglobin 13.6 L ABG Oxyhemoglobin ABG Sodium ABG Potassium ABG Glucose Oxyhemoglobin 94.6 L Carboxyhemoglobin Sodium 146 H Potassium Chloride 109.3 H Carbon Dioxide BUN 36 H Creatinine Glucose 203 H POC Glucose Lactic Acid Calcium Phosphorus Magnesium Ferritin Lactate Dehydrogenase C-Reactive Protein NT-Pro-B Natriuret Pep Total Protein Albumin Triglycerides 254 H Arterial Blood Glucose Urine pH Ur Specific [place] Coronavirus (PCR) 03/19/21 03/19/21 03/19/21 05:45 11:36 23:51 WBC RBC Hgb Hct MCV MCHC RDW Plt Count Lymph % (Auto) [place] % (Auto) Lymph # (Auto) [place] # (Auto) Seg Neutrophils % Seg Neuts % (Manual) Lymphocytes % (Manual) Monocytes % (Manual) Nucleated RBC % Seg Neutrophils # Seg Neutrophils # Man Lymphocytes # (Manual) Monocytes # (Manual) PT INR APTT D-Dimer Heparin Anti-Xa Level ABG pH POC ABG pCO2 POC ABG pO2 ABG pO2 ABG HCO3 ABG O2 Saturation ABG Base Excess ABG Hemoglobin ABG Oxyhemoglobin ABG Sodium ABG Potassium ABG Glucose Oxyhemoglobin Carboxyhemoglobin Sodium Potassium Chloride Carbon Dioxide BUN Creatinine Glucose POC Glucose 164 H 172 H 140 H Lactic Acid Calcium Phosphorus Magnesium Ferritin Lactate Dehydrogenase C-Reactive Protein NT-Pro-B Natriuret Pep Total Protein Albumin Triglycerides Arterial Blood Glucose Urine pH Ur Specific [place] Coronavirus (PCR) 03/20/21 03/20/21 03/20/21 03:29 04:45 04:45 WBC RBC Hgb Hct MCV 95 H MCHC RDW 15.7 H Plt Count Lymph % (Auto) [place] % (Auto) Lymph # (Auto) [place] # (Auto) Seg Neutrophils % Seg Neuts % (Manual) Lymphocytes % (Manual) Monocytes % (Manual) Nucleated RBC % Seg Neutrophils # Seg Neutrophils # Man Lymphocytes # (Manual) Monocytes # (Manual) PT INR APTT D-Dimer Heparin Anti-Xa Level ABG pH 7.349 L POC ABG pCO2 POC ABG pO2 ABG pO2 ABG HCO3 33.7 H ABG O2 Saturation ABG Base Excess 6.4 H ABG Hemoglobin 11.8 L ABG Oxyhemoglobin ABG Sodium ABG Potassium ABG Glucose Oxyhemoglobin 93.9 L Carboxyhemoglobin Sodium 146 H Potassium 5.5 H Chloride 111.1 H Carbon Dioxide BUN 34 H Creatinine 0.7 L Glucose 145 H POC Glucose Lactic Acid Calcium Phosphorus Magnesium 2.50 H Ferritin Lactate Dehydrogenase C-Reactive Protein NT-Pro-B Natriuret Pep Total Protein Albumin Triglycerides Arterial Blood Glucose Urine pH Ur Specific [place] Coronavirus (PCR) 03/20/21 03/20/21 03/20/21 05:41 09:08 11:54 WBC RBC Hgb Hct MCV MCHC RDW Plt Count Lymph % (Auto) [place] % (Auto) Lymph # (Auto) [place] # (Auto) Seg Neutrophils % Seg Neuts % (Manual) Lymphocytes % (Manual) Monocytes % (Manual) Nucleated RBC % Seg Neutrophils # Seg Neutrophils # Man Lymphocytes # (Manual) Monocytes # (Manual) PT INR APTT D-Dimer Heparin Anti-Xa Level ABG pH POC ABG pCO2 POC ABG pO2 ABG pO2 ABG HCO3 ABG O2 Saturation ABG Base Excess ABG Hemoglobin ABG Oxyhemoglobin ABG Sodium ABG Potassium ABG Glucose Oxyhemoglobin Carboxyhemoglobin Sodium Potassium Chloride Carbon Dioxide BUN Creatinine Glucose POC Glucose 108 H 132 H 162 H Lactic Acid Calcium Phosphorus Magnesium Ferritin Lactate Dehydrogenase C-Reactive Protein NT-Pro-B Natriuret Pep Total Protein Albumin Triglycerides Arterial Blood Glucose Urine pH Ur Specific [place] Coronavirus (PCR) 03/20/21 03/21/21 03/21/21 17:28 00:31 04:44 WBC RBC Hgb Hct MCV MCHC RDW Plt Count Lymph % (Auto) [place] % (Auto) Lymph # (Auto) [place] # (Auto) Seg Neutrophils % Seg Neuts % (Manual) Lymphocytes % (Manual) Monocytes % (Manual) Nucleated RBC % Seg Neutrophils # Seg Neutrophils # Man Lymphocytes # (Manual) Monocytes # (Manual) PT INR APTT D-Dimer Heparin Anti-Xa Level ABG pH POC ABG pCO2 POC ABG pO2 ABG pO2 ABG HCO3 ABG O2 Saturation ABG Base Excess ABG Hemoglobin ABG Oxyhemoglobin ABG Sodium ABG Potassium ABG Glucose Oxyhemoglobin Carboxyhemoglobin Sodium Potassium Chloride 108.3 H Carbon Dioxide BUN 30 H Creatinine 0.7 L Glucose POC Glucose 160 H 122 H Lactic Acid Calcium Phosphorus Magnesium Ferritin Lactate Dehydrogenase C-Reactive Protein NT-Pro-B Natriuret Pep Total Protein Albumin Triglycerides Arterial Blood Glucose Urine pH Ur Specific [place] Coronavirus (PCR) 03/21/21 03/21/21 03/21/21 09:18 10:09 13:20 WBC RBC Hgb Hct MCV MCHC RDW Plt Count Lymph % (Auto) [place] % (Auto) Lymph # (Auto) [place] # (Auto) Seg Neutrophils % Seg Neuts % (Manual) Lymphocytes % (Manual) Monocytes % (Manual) Nucleated RBC % Seg Neutrophils # Seg Neutrophils # Man Lymphocytes # (Manual) Monocytes # (Manual) PT INR APTT D-Dimer Heparin Anti-Xa Level ABG pH POC ABG pCO2 POC ABG pO2 ABG pO2 60.7 L ABG HCO3 30.6 H ABG O2 Saturation 93.6 L ABG Base Excess 5.3 H ABG Hemoglobin ABG Oxyhemoglobin ABG Sodium ABG Potassium ABG Glucose Oxyhemoglobin 91.7 L Carboxyhemoglobin Sodium Potassium Chloride Carbon Dioxide BUN Creatinine Glucose POC Glucose 169 H 122 H Lactic Acid Calcium Phosphorus Magnesium Ferritin Lactate Dehydrogenase C-Reactive Protein NT-Pro-B Natriuret Pep Total Protein Albumin Triglycerides Arterial Blood Glucose Urine pH Ur Specific [place] Coronavirus (PCR) 03/21/21 03/21/21 03/21/21 17:25 22:41 23:52 WBC RBC Hgb Hct MCV MCHC RDW Plt Count Lymph % (Auto) [place] % (Auto) Lymph # (Auto) [place] # (Auto) Seg Neutrophils % Seg Neuts % (Manual) Lymphocytes % (Manual) Monocytes % (Manual) Nucleated RBC % Seg Neutrophils # Seg Neutrophils # Man Lymphocytes # (Manual) Monocytes # (Manual) PT INR APTT D-Dimer Heparin Anti-Xa Level ABG pH POC ABG pCO2 POC ABG pO2 ABG pO2 ABG HCO3 ABG O2 Saturation ABG Base Excess ABG Hemoglobin ABG Oxyhemoglobin ABG Sodium ABG Potassium ABG Glucose Oxyhemoglobin Carboxyhemoglobin Sodium Potassium Chloride Carbon Dioxide BUN Creatinine Glucose POC Glucose 121 H 139 H 140 H Lactic Acid Calcium Phosphorus Magnesium Ferritin Lactate Dehydrogenase C-Reactive Protein NT-Pro-B Natriuret Pep Total Protein Albumin Triglycerides Arterial Blood Glucose Urine pH Ur Specific [place] Coronavirus (PCR) 03/22/21 03/22/21 03/22/21 05:58 07:26 07:26 WBC RBC Hgb Hct MCV MCHC 31 L RDW 16.1 H Plt Count Lymph % (Auto) [place] % (Auto) Lymph # (Auto) [place] # (Auto) Seg Neutrophils % Seg Neuts % (Manual) Lymphocytes % (Manual) Monocytes % (Manual) Nucleated RBC % Seg Neutrophils # Seg Neutrophils # Man Lymphocytes # (Manual) Monocytes # (Manual) PT INR APTT D-Dimer Heparin Anti-Xa Level ABG pH POC ABG pCO2 POC ABG pO2 ABG pO2 ABG HCO3 ABG O2 Saturation ABG Base Excess ABG Hemoglobin ABG Oxyhemoglobin ABG Sodium ABG Potassium ABG Glucose Oxyhemoglobin Carboxyhemoglobin Sodium Potassium Chloride 108.5 H Carbon Dioxide BUN 44 H Creatinine Glucose 120 H POC Glucose 131 H Lactic Acid Calcium Phosphorus 5.80 H Magnesium 2.80 H Ferritin Lactate Dehydrogenase C-Reactive Protein NT-Pro-B Natriuret Pep Total Protein Albumin Triglycerides 305 H Arterial Blood Glucose Urine pH Ur Specific [place] Coronavirus (PCR) 03/22/21 03/22/21 03/22/21 09:38 11:15 16:01 WBC RBC Hgb Hct MCV MCHC RDW Plt Count Lymph % (Auto) [place] % (Auto) Lymph # (Auto) [place] # (Auto) Seg Neutrophils % Seg Neuts % (Manual) Lymphocytes % (Manual) Monocytes % (Manual) Nucleated RBC % Seg Neutrophils # Seg Neutrophils # Man Lymphocytes # (Manual) Monocytes # (Manual) PT INR APTT D-Dimer Heparin Anti-Xa Level ABG pH POC ABG pCO2 POC ABG pO2 ABG pO2 70.0 L ABG HCO3 30.0 H ABG O2 Saturation 94.6 L ABG Base Excess 3.6 H ABG Hemoglobin 13.5 L ABG Oxyhemoglobin ABG Sodium ABG Potassium ABG Glucose Oxyhemoglobin 92.5 L Carboxyhemoglobin Sodium Potassium Chloride Carbon Dioxide BUN Creatinine Glucose POC Glucose 186 H 148 H Lactic Acid Calcium Phosphorus Magnesium Ferritin Lactate Dehydrogenase C-Reactive Protein NT-Pro-B Natriuret Pep Total Protein Albumin Triglycerides Arterial Blood Glucose Urine pH Ur Specific [place] Coronavirus (PCR) 03/22/21 03/22/21 03/23/21 21:13 23:48 07:04 WBC 11.7 H RBC Hgb Hct MCV 95 H MCHC RDW 16.1 H Plt Count Lymph % (Auto) [place] % (Auto) Lymph # (Auto) [place] # (Auto) Seg Neutrophils % Seg Neuts % (Manual) Lymphocytes % (Manual) Monocytes % (Manual) Nucleated RBC % Seg Neutrophils # Seg Neutrophils # Man Lymphocytes # (Manual) Monocytes # (Manual) PT INR APTT D-Dimer Heparin Anti-Xa Level ABG pH POC ABG pCO2 POC ABG pO2 ABG pO2 ABG HCO3 ABG O2 Saturation ABG Base Excess ABG Hemoglobin ABG Oxyhemoglobin ABG Sodium ABG Potassium ABG Glucose Oxyhemoglobin Carboxyhemoglobin Sodium Potassium Chloride Carbon Dioxide BUN Creatinine Glucose POC Glucose 121 H 114 H Lactic Acid Calcium Phosphorus Magnesium Ferritin Lactate Dehydrogenase C-Reactive Protein NT-Pro-B Natriuret Pep Total Protein Albumin Triglycerides Arterial Blood Glucose Urine pH Ur Specific [place] Coronavirus (PCR) 03/23/21 03/23/21 03/23/21 07:04 08:35 11:19 WBC RBC Hgb Hct MCV MCHC RDW Plt Count Lymph % (Auto) [place] % (Auto) Lymph # (Auto) [place] # (Auto) Seg Neutrophils % Seg Neuts % (Manual) Lymphocytes % (Manual) Monocytes % (Manual) Nucleated RBC % Seg Neutrophils # Seg Neutrophils # Man Lymphocytes # (Manual) Monocytes # (Manual) PT INR APTT D-Dimer Heparin Anti-Xa Level ABG pH 7.345 L POC ABG pCO2 POC ABG pO2 ABG pO2 167.9 H ABG HCO3 32.2 H ABG O2 Saturation ABG Base Excess 4.8 H ABG Hemoglobin 13.4 L ABG Oxyhemoglobin ABG Sodium ABG Potassium ABG Glucose Oxyhemoglobin Carboxyhemoglobin Sodium 148 H Potassium Chloride 111.3 H Carbon Dioxide 31 H BUN 31 H Creatinine Glucose 131 H POC Glucose 165 H Lactic Acid Calcium Phosphorus Magnesium 2.50 H Ferritin Lactate Dehydrogenase C-Reactive Protein NT-Pro-B Natriuret Pep Total Protein Albumin Triglycerides Arterial Blood Glucose Urine pH Ur Specific [place] Coronavirus (PCR) 03/23/21 03/23/21 03/24/21 16:48 20:52 00:07 WBC RBC Hgb Hct MCV MCHC RDW Plt Count Lymph % (Auto) [place] % (Auto) Lymph # (Auto) [place] # (Auto) Seg Neutrophils % Seg Neuts % (Manual) Lymphocytes % (Manual) Monocytes % (Manual) Nucleated RBC % Seg Neutrophils # Seg Neutrophils # Man Lymphocytes # (Manual) Monocytes # (Manual) PT INR APTT D-Dimer Heparin Anti-Xa Level ABG pH POC ABG pCO2 POC ABG pO2 ABG pO2 ABG HCO3 ABG O2 Saturation ABG Base Excess ABG Hemoglobin ABG Oxyhemoglobin ABG Sodium ABG Potassium ABG Glucose Oxyhemoglobin Carboxyhemoglobin Sodium Potassium Chloride Carbon Dioxide BUN Creatinine Glucose POC Glucose 160 H 127 H 147 H Lactic Acid Calcium Phosphorus Magnesium Ferritin Lactate Dehydrogenase C-Reactive Protein NT-Pro-B Natriuret Pep Total Protein Albumin Triglycerides Arterial Blood Glucose Urine pH Ur Specific [place] Coronavirus (PCR) 03/24/21 03/24/21 03/24/21 04:34 04:34 05:20 WBC 13.3 H RBC Hgb Hct MCV MCHC 31 L RDW 16.1 H Plt Count Lymph % (Auto) [place] % (Auto) Lymph # (Auto) [place] # (Auto) Seg Neutrophils % Seg Neuts % (Manual) Lymphocytes % (Manual) Monocytes % (Manual) Nucleated RBC % Seg Neutrophils # Seg Neutrophils # Man Lymphocytes # (Manual) Monocytes # (Manual) PT INR APTT D-Dimer Heparin Anti-Xa Level ABG pH POC ABG pCO2 POC ABG pO2 ABG pO2 ABG HCO3 ABG O2 Saturation ABG Base Excess ABG Hemoglobin ABG Oxyhemoglobin ABG Sodium ABG Potassium ABG Glucose Oxyhemoglobin Carboxyhemoglobin Sodium Potassium 5.2 H Chloride Carbon Dioxide BUN 28 H Creatinine 0.7 L Glucose 152 H POC Glucose 141 H Lactic Acid Calcium Phosphorus Magnesium Ferritin Lactate Dehydrogenase C-Reactive Protein NT-Pro-B Natriuret Pep Total Protein Albumin Triglycerides Arterial Blood Glucose Urine pH Ur Specific [place] Coronavirus (PCR) 03/24/21 03/24/21 03/24/21 09:40 11:38 16:45 WBC RBC Hgb Hct MCV MCHC RDW Plt Count Lymph % (Auto) [place] % (Auto) Lymph # (Auto) [place] # (Auto) Seg Neutrophils % Seg Neuts % (Manual) Lymphocytes % (Manual) Monocytes % (Manual) Nucleated RBC % Seg Neutrophils # Seg Neutrophils # Man Lymphocytes # (Manual) Monocytes # (Manual) PT INR APTT D-Dimer Heparin Anti-Xa Level ABG pH POC ABG pCO2 POC ABG pO2 ABG pO2 ABG HCO3 ABG O2 Saturation ABG Base Excess ABG Hemoglobin ABG Oxyhemoglobin ABG Sodium ABG Potassium ABG Glucose Oxyhemoglobin Carboxyhemoglobin Sodium Potassium Chloride Carbon Dioxide BUN Creatinine Glucose POC Glucose 126 H 136 H 118 H Lactic Acid Calcium Phosphorus Magnesium Ferritin Lactate Dehydrogenase C-Reactive Protein NT-Pro-B Natriuret Pep Total Protein Albumin Triglycerides Arterial Blood Glucose Urine pH Ur Specific [place] Coronavirus (PCR) 03/24/21 03/24/21 03/25/21 21:03 23:49 04:32 WBC RBC Hgb Hct MCV MCHC RDW 16.1 H Plt Count 121 L Lymph % (Auto) [place] % (Auto) Lymph # (Auto) [place] # (Auto) Seg Neutrophils % Seg Neuts % (Manual) Lymphocytes % (Manual) Monocytes % (Manual) Nucleated RBC % Seg Neutrophils # Seg Neutrophils # Man Lymphocytes # (Manual) Monocytes # (Manual) PT INR APTT D-Dimer Heparin Anti-Xa Level ABG pH POC ABG pCO2 POC ABG pO2 ABG pO2 ABG HCO3 ABG O2 Saturation ABG Base Excess ABG Hemoglobin ABG Oxyhemoglobin ABG Sodium ABG Potassium ABG Glucose Oxyhemoglobin Carboxyhemoglobin Sodium Potassium Chloride Carbon Dioxide BUN Creatinine Glucose POC Glucose 116 H 125 H Lactic Acid Calcium Phosphorus Magnesium Ferritin Lactate Dehydrogenase C-Reactive Protein NT-Pro-B Natriuret Pep Total Protein Albumin Triglycerides Arterial Blood Glucose Urine pH Ur Specific [place] Coronavirus (PCR) 03/25/21 03/25/21 03/25/21 04:32 05:21 09:29 WBC RBC Hgb Hct MCV MCHC RDW Plt Count Lymph % (Auto) [place] % (Auto) Lymph # (Auto) [place] # (Auto) Seg Neutrophils % Seg Neuts % (Manual) Lymphocytes % (Manual) Monocytes % (Manual) Nucleated RBC % Seg Neutrophils # Seg Neutrophils # Man Lymphocytes # (Manual) Monocytes # (Manual) PT INR APTT D-Dimer Heparin Anti-Xa Level ABG pH POC ABG pCO2 POC ABG pO2 ABG pO2 ABG HCO3 ABG O2 Saturation ABG Base Excess ABG Hemoglobin ABG Oxyhemoglobin ABG Sodium ABG Potassium ABG Glucose Oxyhemoglobin Carboxyhemoglobin Sodium 135 L D Potassium Chloride Carbon Dioxide BUN 25 H Creatinine 0.7 L Glucose 168 H POC Glucose 149 H 115 H Lactic Acid Calcium Phosphorus Magnesium Ferritin Lactate Dehydrogenase C-Reactive Protein NT-Pro-B Natriuret Pep Total Protein Albumin Triglycerides Arterial Blood Glucose Urine pH Ur Specific [place] Coronavirus (PCR) 03/25/21 03/25/21 03/25/21 12:26 12:35 23:53 WBC RBC Hgb Hct MCV MCHC RDW Plt Count Lymph % (Auto) [place] % (Auto) Lymph # (Auto) [place] # (Auto) Seg Neutrophils % Seg Neuts % (Manual) Lymphocytes % (Manual) Monocytes % (Manual) Nucleated RBC % Seg Neutrophils # Seg Neutrophils # Man Lymphocytes # (Manual) Monocytes # (Manual) PT INR APTT D-Dimer Heparin Anti-Xa Level ABG pH POC ABG pCO2 POC ABG pO2 ABG pO2 100.5 H ABG HCO3 33.6 H ABG O2 Saturation ABG Base Excess 6.4 H ABG Hemoglobin 12.0 L ABG Oxyhemoglobin ABG Sodium ABG Potassium ABG Glucose Oxyhemoglobin Carboxyhemoglobin Sodium Potassium Chloride Carbon Dioxide BUN Creatinine Glucose POC Glucose 108 H 137 H Lactic Acid Calcium Phosphorus Magnesium Ferritin Lactate Dehydrogenase C-Reactive Protein NT-Pro-B Natriuret Pep Total Protein Albumin Triglycerides Arterial Blood Glucose Urine pH Ur Specific [place] Coronavirus (PCR) 03/26/21 03/26/21 03/26/21 05:14 07:09 07:09 WBC RBC Hgb Hct MCV MCHC RDW 16.5 H Plt Count 139 L Lymph % (Auto) [place] % (Auto) Lymph # (Auto) [place] # (Auto) Seg Neutrophils % Seg Neuts % (Manual) Lymphocytes % (Manual) Monocytes % (Manual) Nucleated RBC % Seg Neutrophils # Seg Neutrophils # Man Lymphocytes # (Manual) Monocytes # (Manual) PT INR APTT D-Dimer Heparin Anti-Xa Level ABG pH POC ABG pCO2 POC ABG pO2 ABG pO2 ABG HCO3 ABG O2 Saturation ABG Base Excess ABG Hemoglobin ABG Oxyhemoglobin ABG Sodium ABG Potassium ABG Glucose Oxyhemoglobin Carboxyhemoglobin Sodium Potassium Chloride Carbon Dioxide BUN 22 H Creatinine 0.7 L Glucose 108 H POC Glucose 116 H Lactic Acid Calcium Phosphorus Magnesium Ferritin Lactate Dehydrogenase C-Reactive Protein NT-Pro-B Natriuret Pep Total Protein Albumin Triglycerides Arterial Blood Glucose Urine pH Ur Specific [place] Coronavirus (PCR) 03/26/21 03/26/21 03/26/21 09:51 11:15 16:59 WBC RBC Hgb Hct MCV MCHC RDW Plt Count Lymph % (Auto) [place] % (Auto) Lymph # (Auto) [place] # (Auto) Seg Neutrophils % Seg Neuts % (Manual) Lymphocytes % (Manual) Monocytes % (Manual) Nucleated RBC % Seg Neutrophils # Seg Neutrophils # Man Lymphocytes # (Manual) Monocytes # (Manual) PT INR APTT D-Dimer Heparin Anti-Xa Level ABG pH POC ABG pCO2 POC ABG pO2 ABG pO2 ABG HCO3 ABG O2 Saturation ABG Base Excess ABG Hemoglobin ABG Oxyhemoglobin ABG Sodium ABG Potassium ABG Glucose Oxyhemoglobin Carboxyhemoglobin Sodium Potassium Chloride Carbon Dioxide BUN Creatinine Glucose POC Glucose 107 H 119 H 174 H Lactic Acid Calcium Phosphorus Magnesium Ferritin Lactate Dehydrogenase C-Reactive Protein NT-Pro-B Natriuret Pep Total Protein Albumin Triglycerides Arterial Blood Glucose Urine pH Ur Specific [place] Coronavirus (PCR) 03/26/21 03/27/21 03/27/21 22:18 07:08 10:28 WBC RBC Hgb Hct MCV 95 H MCHC RDW 16.2 H Plt Count 134 L Lymph % (Auto) [place] % (Auto) Lymph # (Auto) [place] # (Auto) Seg Neutrophils % Seg Neuts % (Manual) Lymphocytes % (Manual) Monocytes % (Manual) Nucleated RBC % Seg Neutrophils # Seg Neutrophils # Man Lymphocytes # (Manual) Monocytes # (Manual) PT INR APTT D-Dimer Heparin Anti-Xa Level ABG pH POC ABG pCO2 POC ABG pO2 ABG pO2 ABG HCO3 ABG O2 Saturation ABG Base Excess ABG Hemoglobin ABG Oxyhemoglobin ABG Sodium ABG Potassium ABG Glucose Oxyhemoglobin Carboxyhemoglobin Sodium Potassium Chloride Carbon Dioxide BUN Creatinine Glucose POC Glucose 107 H 52 L Lactic Acid Calcium Phosphorus Magnesium Ferritin Lactate Dehydrogenase C-Reactive Protein NT-Pro-B Natriuret Pep Total Protein Albumin Triglycerides Arterial Blood Glucose Urine pH Ur Specific [place] Coronavirus (PCR) 03/27/21 03/27/21 03/27/21 10:28 11:45 17:39 WBC RBC Hgb Hct MCV MCHC RDW Plt Count Lymph % (Auto) [place] % (Auto) Lymph # (Auto) [place] # (Auto) Seg Neutrophils % Seg Neuts % (Manual) Lymphocytes % (Manual) Monocytes % (Manual) Nucleated RBC % Seg Neutrophils # Seg Neutrophils # Man Lymphocytes # (Manual) Monocytes # (Manual) PT INR APTT D-Dimer Heparin Anti-Xa Level ABG pH POC ABG pCO2 POC ABG pO2 ABG pO2 ABG HCO3 ABG O2 Saturation ABG Base Excess ABG Hemoglobin ABG Oxyhemoglobin ABG Sodium ABG Potassium ABG Glucose Oxyhemoglobin Carboxyhemoglobin Sodium 136 L Potassium Chloride Carbon Dioxide BUN Creatinine 0.7 L Glucose 150 H POC Glucose 121 H 165 H Lactic Acid Calcium Phosphorus Magnesium Ferritin Lactate Dehydrogenase C-Reactive Protein NT-Pro-B Natriuret Pep Total Protein Albumin Triglycerides Arterial Blood Glucose Urine pH Ur Specific [place] Coronavirus (PCR) 03/28/21 03/28/21 03/28/21 07:14 11:42 18:22 WBC RBC Hgb Hct MCV MCHC RDW 16.4 H Plt Count Lymph % (Auto) [place] % (Auto) Lymph # (Auto) [place] # (Auto) Seg Neutrophils % Seg Neuts % (Manual) Lymphocytes % (Manual) Monocytes % (Manual) Nucleated RBC % Seg Neutrophils # Seg Neutrophils # Man Lymphocytes # (Manual) Monocytes # (Manual) PT INR APTT D-Dimer Heparin Anti-Xa Level ABG pH POC ABG pCO2 POC ABG pO2 ABG pO2 ABG HCO3 ABG O2 Saturation ABG Base Excess ABG Hemoglobin ABG Oxyhemoglobin ABG Sodium ABG Potassium ABG Glucose Oxyhemoglobin Carboxyhemoglobin Sodium Potassium Chloride Carbon Dioxide BUN Creatinine Glucose POC Glucose 145 H 169 H Lactic Acid Calcium Phosphorus Magnesium Ferritin Lactate Dehydrogenase C-Reactive Protein NT-Pro-B Natriuret Pep Total Protein Albumin Triglycerides Arterial Blood Glucose Urine pH Ur Specific [place] Coronavirus (PCR) 03/28/21 03/29/21 03/29/21 23:39 04:50 04:50 WBC RBC Hgb 11.0 L Hct 34.9 L MCV MCHC RDW 15.9 H Plt Count Lymph % (Auto) [place] % (Auto) Lymph # (Auto) [place] # (Auto) Seg Neutrophils % Seg Neuts % (Manual) Lymphocytes % (Manual) Monocytes % (Manual) Nucleated RBC % Seg Neutrophils # Seg Neutrophils # Man Lymphocytes # (Manual) Monocytes # (Manual) PT INR APTT D-Dimer Heparin Anti-Xa Level ABG pH POC ABG pCO2 POC ABG pO2 ABG pO2 ABG HCO3 ABG O2 Saturation ABG Base Excess ABG Hemoglobin ABG Oxyhemoglobin ABG Sodium ABG Potassium ABG Glucose Oxyhemoglobin Carboxyhemoglobin Sodium Potassium Chloride Carbon Dioxide 34 H BUN Creatinine 0.6 L Glucose 152 H POC Glucose 139 H Lactic Acid Calcium Phosphorus Magnesium Ferritin Lactate Dehydrogenase C-Reactive Protein NT-Pro-B Natriuret Pep Total Protein Albumin Triglycerides Arterial Blood Glucose Urine pH Ur Specific [place] Coronavirus (PCR) 03/29/21 03/29/21 03/29/21 05:25 11:34 18:02 WBC RBC Hgb Hct MCV MCHC RDW Plt Count Lymph % (Auto) [place] % (Auto) Lymph # (Auto) [place] # (Auto) Seg Neutrophils % Seg Neuts % (Manual) Lymphocytes % (Manual) Monocytes % (Manual) Nucleated RBC % Seg Neutrophils # Seg Neutrophils # Man Lymphocytes # (Manual) Monocytes # (Manual) PT INR APTT D-Dimer Heparin Anti-Xa Level ABG pH POC ABG pCO2 POC ABG pO2 ABG pO2 ABG HCO3 ABG O2 Saturation ABG Base Excess ABG Hemoglobin ABG Oxyhemoglobin ABG Sodium ABG Potassium ABG Glucose Oxyhemoglobin Carboxyhemoglobin Sodium Potassium Chloride Carbon Dioxide BUN Creatinine Glucose POC Glucose 127 H 169 H 173 H Lactic Acid Calcium Phosphorus Magnesium Ferritin Lactate Dehydrogenase C-Reactive Protein NT-Pro-B Natriuret Pep Total Protein Albumin Triglycerides Arterial Blood Glucose Urine pH Ur Specific [place] Coronavirus (PCR) 03/29/21 03/30/21 03/30/21 21:42 00:01 05:36 WBC RBC Hgb Hct MCV MCHC RDW 16.7 H Plt Count Lymph % (Auto) [place] % (Auto) Lymph # (Auto) [place] # (Auto) Seg Neutrophils % Seg Neuts % (Manual) Lymphocytes % (Manual) Monocytes % (Manual) Nucleated RBC % Seg Neutrophils # Seg Neutrophils # Man Lymphocytes # (Manual) Monocytes # (Manual) PT INR APTT D-Dimer Heparin Anti-Xa Level ABG pH POC ABG pCO2 POC ABG pO2 ABG pO2 ABG HCO3 ABG O2 Saturation ABG Base Excess ABG Hemoglobin ABG Oxyhemoglobin ABG Sodium ABG Potassium ABG Glucose Oxyhemoglobin Carboxyhemoglobin Sodium Potassium Chloride Carbon Dioxide BUN Creatinine Glucose POC Glucose 184 H 161 H Lactic Acid Calcium Phosphorus Magnesium Ferritin Lactate Dehydrogenase C-Reactive Protein NT-Pro-B Natriuret Pep Total Protein Albumin Triglycerides Arterial Blood Glucose Urine pH Ur Specific [place] Coronavirus (PCR) 03/30/21 03/30/21 03/30/21 05:36 06:03 11:32 WBC RBC Hgb Hct MCV MCHC RDW Plt Count Lymph % (Auto) [place] % (Auto) Lymph # (Auto) [place] # (Auto) Seg Neutrophils % Seg Neuts % (Manual) Lymphocytes % (Manual) Monocytes % (Manual) Nucleated RBC % Seg Neutrophils # Seg Neutrophils # Man Lymphocytes # (Manual) Monocytes # (Manual) PT INR APTT D-Dimer Heparin Anti-Xa Level ABG pH POC ABG pCO2 POC ABG pO2 ABG pO2 ABG HCO3 ABG O2 Saturation ABG Base Excess ABG Hemoglobin ABG Oxyhemoglobin ABG Sodium ABG Potassium ABG Glucose Oxyhemoglobin Carboxyhemoglobin Sodium Potassium Chloride Carbon Dioxide BUN Creatinine 0.5 L Glucose 127 H POC Glucose 130 H 183 H Lactic Acid Calcium Phosphorus Magnesium Ferritin Lactate Dehydrogenase C-Reactive Protein NT-Pro-B Natriuret Pep Total Protein Albumin Triglycerides Arterial Blood Glucose Urine pH Ur Specific [place] Coronavirus (PCR) 03/30/21 03/30/21 03/30/21 15:00 16:23 21:07 WBC RBC Hgb Hct MCV MCHC RDW Plt Count Lymph % (Auto) [place] % (Auto) Lymph # (Auto) [place] # (Auto) Seg Neutrophils % Seg Neuts % (Manual) Lymphocytes % (Manual) Monocytes % (Manual) Nucleated RBC % Seg Neutrophils # Seg Neutrophils # Man Lymphocytes # (Manual) Monocytes # (Manual) PT INR APTT D-Dimer Heparin Anti-Xa Level ABG pH POC ABG pCO2 POC ABG pO2 ABG pO2 67.2 L ABG HCO3 34.9 H ABG O2 Saturation ABG Base Excess 9.1 H ABG Hemoglobin 11.6 L ABG Oxyhemoglobin ABG Sodium ABG Potassium ABG Glucose Oxyhemoglobin 93.0 L Carboxyhemoglobin Sodium Potassium Chloride Carbon Dioxide BUN Creatinine Glucose POC Glucose 162 H 146 H Lactic Acid Calcium Phosphorus Magnesium Ferritin Lactate Dehydrogenase C-Reactive Protein NT-Pro-B Natriuret Pep Total Protein Albumin Triglycerides Arterial Blood Glucose Urine pH Ur Specific [place] Coronavirus (PCR) 03/30/21 03/31/21 03/31/21 23:23 05:44 11:19 WBC RBC Hgb Hct MCV MCHC RDW Plt Count Lymph % (Auto) [place] % (Auto) Lymph # (Auto) [place] # (Auto) Seg Neutrophils % Seg Neuts % (Manual) Lymphocytes % (Manual) Monocytes % (Manual) Nucleated RBC % Seg Neutrophils # Seg Neutrophils # Man Lymphocytes # (Manual) Monocytes # (Manual) PT INR APTT D-Dimer Heparin Anti-Xa Level ABG pH POC ABG pCO2 POC ABG pO2 ABG pO2 ABG HCO3 ABG O2 Saturation ABG Base Excess ABG Hemoglobin ABG Oxyhemoglobin ABG Sodium ABG Potassium ABG Glucose Oxyhemoglobin Carboxyhemoglobin Sodium Potassium Chloride Carbon Dioxide BUN Creatinine Glucose POC Glucose 138 H 180 H 178 H Lactic Acid Calcium Phosphorus Magnesium Ferritin Lactate Dehydrogenase C-Reactive Protein NT-Pro-B Natriuret Pep Total Protein Albumin Triglycerides Arterial Blood Glucose Urine pH Ur Specific [place] Coronavirus (PCR) 03/31/21 03/31/21 03/31/21 12:50 13:30 16:06 WBC RBC Hgb 11.3 L Hct 35.1 L MCV MCHC RDW 16.5 H Plt Count Lymph % (Auto) 7.6 L [place] % (Auto) 9.5 H Lymph # (Auto) 0.6 L [place] # (Auto) Seg Neutrophils % 78.3 H Seg Neuts % (Manual) Lymphocytes % (Manual) Monocytes % (Manual) Nucleated RBC % Seg Neutrophils # Seg Neutrophils # Man Lymphocytes # (Manual) Monocytes # (Manual) PT INR APTT D-Dimer Heparin Anti-Xa Level ABG pH POC ABG pCO2 POC ABG pO2 ABG pO2 99.4 H ABG HCO3 34.9 H ABG O2 Saturation ABG Base Excess 8.4 H ABG Hemoglobin 11.8 L ABG Oxyhemoglobin ABG Sodium ABG Potassium ABG Glucose Oxyhemoglobin Carboxyhemoglobin Sodium Potassium Chloride Carbon Dioxide BUN Creatinine Glucose POC Glucose 197 H Lactic Acid Calcium Phosphorus Magnesium Ferritin Lactate Dehydrogenase C-Reactive Protein NT-Pro-B Natriuret Pep Total Protein Albumin Triglycerides Arterial Blood Glucose Urine pH Ur Specific [place] Coronavirus (PCR) 03/31/21 04/01/21 04/01/21 20:51 05:37 07:16 WBC RBC 3.39 L Hgb 10.5 L Hct 31.6 L MCV MCHC RDW 16.1 H Plt Count Lymph % (Auto) [place] % (Auto) Lymph # (Auto) [place] # (Auto) Seg Neutrophils % Seg Neuts % (Manual) Lymphocytes % (Manual) Monocytes % (Manual) Nucleated RBC % Seg Neutrophils # Seg Neutrophils # Man Lymphocytes # (Manual) Monocytes # (Manual) PT INR APTT D-Dimer Heparin Anti-Xa Level ABG pH POC ABG pCO2 POC ABG pO2 ABG pO2 ABG HCO3 ABG O2 Saturation ABG Base Excess ABG Hemoglobin ABG Oxyhemoglobin ABG Sodium ABG Potassium ABG Glucose Oxyhemoglobin Carboxyhemoglobin Sodium Potassium Chloride Carbon Dioxide BUN Creatinine Glucose POC Glucose 140 H 128 H Lactic Acid Calcium Phosphorus Magnesium Ferritin Lactate Dehydrogenase C-Reactive Protein NT-Pro-B Natriuret Pep Total Protein Albumin Triglycerides Arterial Blood Glucose Urine pH Ur Specific [place] Coronavirus (PCR) 04/01/21 04/01/21 04/01/21 07:16 11:52 16:56 WBC RBC Hgb Hct MCV MCHC RDW Plt Count Lymph % (Auto) [place] % (Auto) Lymph # (Auto) [place] # (Auto) Seg Neutrophils % Seg Neuts % (Manual) Lymphocytes % (Manual) Monocytes % (Manual) Nucleated RBC % Seg Neutrophils # Seg Neutrophils # Man Lymphocytes # (Manual) Monocytes # (Manual) PT INR APTT D-Dimer Heparin Anti-Xa Level ABG pH POC ABG pCO2 POC ABG pO2 ABG pO2 ABG HCO3 ABG O2 Saturation ABG Base Excess ABG Hemoglobin ABG Oxyhemoglobin ABG Sodium ABG Potassium ABG Glucose Oxyhemoglobin Carboxyhemoglobin Sodium Potassium Chloride Carbon Dioxide BUN Creatinine 0.6 L Glucose 131 H POC Glucose 182 H 179 H Lactic Acid Calcium 8.3 L Phosphorus Magnesium Ferritin Lactate Dehydrogenase C-Reactive Protein NT-Pro-B Natriuret Pep Total Protein Albumin Triglycerides Arterial Blood Glucose Urine pH Ur Specific [place] Coronavirus (PCR) 04/01/21 04/01/21 04/02/21 21:30 23:40 04:26 WBC RBC 3.62 L Hgb 10.8 L Hct 33.9 L MCV MCHC RDW 16.0 H Plt Count Lymph % (Auto) [place] % (Auto) Lymph # (Auto) [place] # (Auto) Seg Neutrophils % Seg Neuts % (Manual) Lymphocytes % (Manual) Monocytes % (Manual) Nucleated RBC % Seg Neutrophils # Seg Neutrophils # Man Lymphocytes # (Manual) Monocytes # (Manual) PT INR APTT D-Dimer Heparin Anti-Xa Level ABG pH POC ABG pCO2 POC ABG pO2 ABG pO2 ABG HCO3 ABG O2 Saturation ABG Base Excess ABG Hemoglobin ABG Oxyhemoglobin ABG Sodium ABG Potassium ABG Glucose Oxyhemoglobin Carboxyhemoglobin Sodium Potassium Chloride Carbon Dioxide BUN Creatinine Glucose POC Glucose 131 H 129 H Lactic Acid Calcium Phosphorus Magnesium Ferritin Lactate Dehydrogenase C-Reactive Protein NT-Pro-B Natriuret Pep Total Protein Albumin Triglycerides Arterial Blood Glucose Urine pH Ur Specific [place] Coronavirus (PCR) 04/02/21 04/02/21 04/02/21 04:26 05:54 11:35 WBC RBC Hgb Hct MCV MCHC RDW Plt Count Lymph % (Auto) [place] % (Auto) Lymph # (Auto) [place] # (Auto) Seg Neutrophils % Seg Neuts % (Manual) Lymphocytes % (Manual) Monocytes % (Manual) Nucleated RBC % Seg Neutrophils # Seg Neutrophils # Man Lymphocytes # (Manual) Monocytes # (Manual) PT INR APTT D-Dimer Heparin Anti-Xa Level ABG pH POC ABG pCO2 POC ABG pO2 ABG pO2 ABG HCO3 ABG O2 Saturation ABG Base Excess ABG Hemoglobin ABG Oxyhemoglobin ABG Sodium ABG Potassium ABG Glucose Oxyhemoglobin Carboxyhemoglobin Sodium 136 L Potassium Chloride Carbon Dioxide BUN Creatinine 0.6 L Glucose 152 H POC Glucose 151 H 178 H Lactic Acid Calcium Phosphorus Magnesium Ferritin Lactate Dehydrogenase C-Reactive Protein NT-Pro-B Natriuret Pep Total Protein Albumin Triglycerides Arterial Blood Glucose Urine pH Ur Specific [place] Coronavirus (PCR) 04/02/21 04/02/21 04/02/21 16:11 21:09 23:38 WBC RBC Hgb Hct MCV MCHC RDW Plt Count Lymph % (Auto) [place] % (Auto) Lymph # (Auto) [place] # (Auto) Seg Neutrophils % Seg Neuts % (Manual) Lymphocytes % (Manual) Monocytes % (Manual) Nucleated RBC % Seg Neutrophils # Seg Neutrophils # Man Lymphocytes # (Manual) Monocytes # (Manual) PT INR APTT D-Dimer Heparin Anti-Xa Level ABG pH POC ABG pCO2 POC ABG pO2 ABG pO2 ABG HCO3 ABG O2 Saturation ABG Base Excess ABG Hemoglobin ABG Oxyhemoglobin ABG Sodium ABG Potassium ABG Glucose Oxyhemoglobin Carboxyhemoglobin Sodium Potassium Chloride Carbon Dioxide BUN Creatinine Glucose POC Glucose 186 H 145 H 152 H Lactic Acid Calcium Phosphorus Magnesium Ferritin Lactate Dehydrogenase C-Reactive Protein NT-Pro-B Natriuret Pep Total Protein Albumin Triglycerides Arterial Blood Glucose Urine pH Ur Specific [place] Coronavirus (PCR) 04/03/21 04/03/21 04/03/21 04:14 04:14 05:27 WBC RBC 3.62 L Hgb 11.0 L Hct 34.0 L MCV MCHC RDW 16.3 H Plt Count Lymph % (Auto) [place] % (Auto) Lymph # (Auto) [place] # (Auto) Seg Neutrophils % Seg Neuts % (Manual) Lymphocytes % (Manual) Monocytes % (Manual) Nucleated RBC % Seg Neutrophils # Seg Neutrophils # Man Lymphocytes # (Manual) Monocytes # (Manual) PT INR APTT D-Dimer Heparin Anti-Xa Level ABG pH POC ABG pCO2 POC ABG pO2 ABG pO2 ABG HCO3 ABG O2 Saturation ABG Base Excess ABG Hemoglobin ABG Oxyhemoglobin ABG Sodium ABG Potassium ABG Glucose Oxyhemoglobin Carboxyhemoglobin Sodium Potassium Chloride Carbon Dioxide 31 H BUN Creatinine 0.6 L Glucose 155 H POC Glucose 165 H Lactic Acid Calcium Phosphorus Magnesium Ferritin Lactate Dehydrogenase C-Reactive Protein NT-Pro-B Natriuret Pep Total Protein Albumin Triglycerides Arterial Blood Glucose Urine pH Ur Specific [place] Coronavirus (PCR) 04/03/21 04/03/21 04/03/21 11:02 16:19 19:45 WBC RBC Hgb Hct MCV MCHC RDW Plt Count Lymph % (Auto) [place] % (Auto) Lymph # (Auto) [place] # (Auto) Seg Neutrophils % Seg Neuts % (Manual) Lymphocytes % (Manual) Monocytes % (Manual) Nucleated RBC % Seg Neutrophils # Seg Neutrophils # Man Lymphocytes # (Manual) Monocytes # (Manual) PT INR APTT D-Dimer Heparin Anti-Xa Level ABG pH POC ABG pCO2 POC ABG pO2 ABG pO2 ABG HCO3 ABG O2 Saturation ABG Base Excess ABG Hemoglobin ABG Oxyhemoglobin ABG Sodium ABG Potassium ABG Glucose Oxyhemoglobin Carboxyhemoglobin Sodium Potassium Chloride Carbon Dioxide BUN Creatinine Glucose POC Glucose 161 H 180 H 136 H Lactic Acid Calcium Phosphorus Magnesium Ferritin Lactate Dehydrogenase C-Reactive Protein NT-Pro-B Natriuret Pep Total Protein Albumin Triglycerides Arterial Blood Glucose Urine pH Ur Specific [place] Coronavirus (PCR) 04/04/21 04/04/21 04/04/21 00:21 04:33 04:33 WBC 13.1 H RBC 3.49 L Hgb 10.3 L Hct 32.7 L MCV MCHC RDW 16.1 H Plt Count Lymph % (Auto) [place] % (Auto) Lymph # (Auto) [place] # (Auto) Seg Neutrophils % Seg Neuts % (Manual) Lymphocytes % (Manual) Monocytes % (Manual) Nucleated RBC % Seg Neutrophils # Seg Neutrophils # Man Lymphocytes # (Manual) Monocytes # (Manual) PT INR APTT D-Dimer Heparin Anti-Xa Level ABG pH POC ABG pCO2 POC ABG pO2 ABG pO2 ABG HCO3 ABG O2 Saturation ABG Base Excess ABG Hemoglobin ABG Oxyhemoglobin ABG Sodium ABG Potassium ABG Glucose Oxyhemoglobin Carboxyhemoglobin Sodium Potassium Chloride Carbon Dioxide 31 H BUN Creatinine 0.4 L Glucose 153 H POC Glucose 140 H Lactic Acid Calcium Phosphorus Magnesium Ferritin Lactate Dehydrogenase C-Reactive Protein NT-Pro-B Natriuret Pep Total Protein Albumin Triglycerides Arterial Blood Glucose Urine pH Ur Specific [place] Coronavirus (PCR) 04/04/21 04/04/21 04/04/21 05:16 11:39 17:22 WBC RBC Hgb Hct MCV MCHC RDW Plt Count Lymph % (Auto) [place] % (Auto) Lymph # (Auto) [place] # (Auto) Seg Neutrophils % Seg Neuts % (Manual) Lymphocytes % (Manual) Monocytes % (Manual) Nucleated RBC % Seg Neutrophils # Seg Neutrophils # Man Lymphocytes # (Manual) Monocytes # (Manual) PT INR APTT D-Dimer Heparin Anti-Xa Level ABG pH POC ABG pCO2 POC ABG pO2 ABG pO2 ABG HCO3 ABG O2 Saturation ABG Base Excess ABG Hemoglobin ABG Oxyhemoglobin ABG Sodium ABG Potassium ABG Glucose Oxyhemoglobin Carboxyhemoglobin Sodium Potassium Chloride Carbon Dioxide BUN Creatinine Glucose POC Glucose 152 H 154 H 198 H Lactic Acid Calcium Phosphorus Magnesium Ferritin Lactate Dehydrogenase C-Reactive Protein NT-Pro-B Natriuret Pep Total Protein Albumin Triglycerides Arterial Blood Glucose Urine pH Ur Specific [place] Coronavirus (PCR) 04/04/21 04/04/21 04/05/21 20:14 23:16 04:15 WBC RBC 3.21 L Hgb 10.0 L Hct 30.3 L MCV MCHC RDW 16.4 H Plt Count Lymph % (Auto) [place] % (Auto) Lymph # (Auto) [place] # (Auto) Seg Neutrophils % Seg Neuts % (Manual) Lymphocytes % (Manual) Monocytes % (Manual) Nucleated RBC % Seg Neutrophils # Seg Neutrophils # Man Lymphocytes # (Manual) Monocytes # (Manual) PT INR APTT D-Dimer Heparin Anti-Xa Level ABG pH POC ABG pCO2 POC ABG pO2 ABG pO2 ABG HCO3 ABG O2 Saturation ABG Base Excess ABG Hemoglobin ABG Oxyhemoglobin ABG Sodium ABG Potassium ABG Glucose Oxyhemoglobin Carboxyhemoglobin Sodium Potassium Chloride Carbon Dioxide BUN Creatinine Glucose POC Glucose 161 H 139 H Lactic Acid Calcium Phosphorus Magnesium Ferritin Lactate Dehydrogenase C-Reactive Protein NT-Pro-B Natriuret Pep Total Protein Albumin Triglycerides Arterial Blood Glucose Urine pH Ur Specific [place] Coronavirus (PCR) 04/05/21 04/05/21 04/05/21 04:15 05:34 12:09 WBC RBC Hgb Hct MCV MCHC RDW Plt Count Lymph % (Auto) [place] % (Auto) Lymph # (Auto) [place] # (Auto) Seg Neutrophils % Seg Neuts % (Manual) Lymphocytes % (Manual) Monocytes % (Manual) Nucleated RBC % Seg Neutrophils # Seg Neutrophils # Man Lymphocytes # (Manual) Monocytes # (Manual) PT INR APTT D-Dimer Heparin Anti-Xa Level ABG pH POC ABG pCO2 POC ABG pO2 ABG pO2 ABG HCO3 ABG O2 Saturation ABG Base Excess ABG Hemoglobin ABG Oxyhemoglobin ABG Sodium ABG Potassium ABG Glucose Oxyhemoglobin Carboxyhemoglobin Sodium Potassium Chloride 97.6 L Carbon Dioxide 32 H BUN Creatinine 0.5 L Glucose 147 H POC Glucose 145 H 173 H Lactic Acid Calcium Phosphorus Magnesium Ferritin Lactate Dehydrogenase C-Reactive Protein NT-Pro-B Natriuret Pep Total Protein Albumin Triglycerides Arterial Blood Glucose Urine pH Ur Specific [place] Coronavirus (PCR) 04/05/21 04/05/21 04/05/21 17:35 21:07 23:15 WBC RBC Hgb Hct MCV MCHC RDW Plt Count Lymph % (Auto) [place] % (Auto) Lymph # (Auto) [place] # (Auto) Seg Neutrophils % Seg Neuts % (Manual) Lymphocytes % (Manual) Monocytes % (Manual) Nucleated RBC % Seg Neutrophils # Seg Neutrophils # Man Lymphocytes # (Manual) Monocytes # (Manual) PT INR APTT D-Dimer Heparin Anti-Xa Level ABG pH POC ABG pCO2 POC ABG pO2 ABG pO2 ABG HCO3 ABG O2 Saturation ABG Base Excess ABG Hemoglobin ABG Oxyhemoglobin ABG Sodium ABG Potassium ABG Glucose Oxyhemoglobin Carboxyhemoglobin Sodium Potassium Chloride Carbon Dioxide BUN Creatinine Glucose POC Glucose 143 H 157 H 171 H Lactic Acid Calcium Phosphorus Magnesium Ferritin Lactate Dehydrogenase C-Reactive Protein NT-Pro-B Natriuret Pep Total Protein Albumin Triglycerides Arterial Blood Glucose Urine pH Ur Specific [place] Coronavirus (PCR) 04/06/21 04/06/21 04/06/21 04:49 05:14 11:42 WBC RBC Hgb Hct MCV MCHC RDW Plt Count Lymph % (Auto) [place] % (Auto) Lymph # (Auto) [place] # (Auto) Seg Neutrophils % Seg Neuts % (Manual) Lymphocytes % (Manual) Monocytes % (Manual) Nucleated RBC % Seg Neutrophils # Seg Neutrophils # Man Lymphocytes # (Manual) Monocytes # (Manual) PT INR APTT D-Dimer Heparin Anti-Xa Level ABG pH POC ABG pCO2 57.4 H POC ABG pO2 55.1 L ABG pO2 ABG HCO3 ABG O2 Saturation ABG Base Excess ABG Hemoglobin 11.5 L ABG Oxyhemoglobin 87.5 L ABG Sodium ABG Potassium ABG Glucose Oxyhemoglobin Carboxyhemoglobin Sodium Potassium Chloride Carbon Dioxide BUN Creatinine Glucose POC Glucose 145 H 171 H Lactic Acid Calcium Phosphorus Magnesium Ferritin Lactate Dehydrogenase C-Reactive Protein NT-Pro-B Natriuret Pep Total Protein Albumin Triglycerides Arterial Blood Glucose Urine pH Ur Specific [place] Coronavirus (PCR) 04/06/21 04/06/21 04/06/21 11:50 15:36 15:36 WBC RBC Hgb 10.4 L Hct 32.5 L MCV MCHC RDW Plt Count 444 H Lymph % (Auto) [place] % (Auto) Lymph # (Auto) [place] # (Auto) Seg Neutrophils % Seg Neuts % (Manual) Lymphocytes % (Manual) Monocytes % (Manual) Nucleated RBC % Seg Neutrophils # Seg Neutrophils # Man Lymphocytes # (Manual) Monocytes # (Manual) PT INR APTT 37.1 H D-Dimer Heparin Anti-Xa Level ABG pH 7.341 L POC ABG pCO2 POC ABG pO2 ABG pO2 108.9 H ABG HCO3 38.9 H ABG O2 Saturation ABG Base Excess 10.6 H ABG Hemoglobin 11.5 L ABG Oxyhemoglobin ABG Sodium ABG Potassium ABG Glucose Oxyhemoglobin Carboxyhemoglobin Sodium Potassium Chloride Carbon Dioxide BUN Creatinine Glucose POC Glucose Lactic Acid Calcium Phosphorus Magnesium Ferritin Lactate Dehydrogenase C-Reactive Protein NT-Pro-B Natriuret Pep Total Protein Albumin Triglycerides Arterial Blood Glucose Urine pH Ur Specific [place] Coronavirus (PCR) 04/06/21 04/07/21 04/07/21 17:57 00:30 00:32 WBC RBC Hgb Hct MCV MCHC RDW Plt Count Lymph % (Auto) [place] % (Auto) Lymph # (Auto) [place] # (Auto) Seg Neutrophils % Seg Neuts % (Manual) Lymphocytes % (Manual) Monocytes % (Manual) Nucleated RBC % Seg Neutrophils # Seg Neutrophils # Man Lymphocytes # (Manual) Monocytes # (Manual) PT INR APTT D-Dimer Heparin Anti-Xa Level < 0.10 L ABG pH POC ABG pCO2 POC ABG pO2 ABG pO2 ABG HCO3 ABG O2 Saturation ABG Base Excess ABG Hemoglobin ABG Oxyhemoglobin ABG Sodium ABG Potassium ABG Glucose Oxyhemoglobin Carboxyhemoglobin Sodium Potassium Chloride Carbon Dioxide BUN Creatinine Glucose POC Glucose 151 H 149 H Lactic Acid Calcium Phosphorus Magnesium Ferritin Lactate Dehydrogenase C-Reactive Protein NT-Pro-B Natriuret Pep Total Protein Albumin Triglycerides Arterial Blood Glucose Urine pH Ur Specific [place] Coronavirus (PCR) 04/07/21 04/07/21 04/07/21 05:34 06:08 06:08 WBC RBC 3.20 L Hgb 9.6 L Hct 29.8 L MCV MCHC RDW 16.0 H Plt Count 455 H Lymph % (Auto) [place] % (Auto) Lymph # (Auto) [place] # (Auto) Seg Neutrophils % Seg Neuts % (Manual) Lymphocytes % (Manual) Monocytes % (Manual) Nucleated RBC % Seg Neutrophils # Seg Neutrophils # Man Lymphocytes # (Manual) Monocytes # (Manual) PT INR APTT D-Dimer Heparin Anti-Xa Level ABG pH POC ABG pCO2 POC ABG pO2 ABG pO2 ABG HCO3 ABG O2 Saturation ABG Base Excess ABG Hemoglobin ABG Oxyhemoglobin ABG Sodium ABG Potassium ABG Glucose Oxyhemoglobin Carboxyhemoglobin Sodium Potassium Chloride Carbon Dioxide 35 H BUN Creatinine 0.5 L Glucose 216 H POC Glucose 182 H Lactic Acid Calcium Phosphorus Magnesium Ferritin Lactate Dehydrogenase C-Reactive Protein NT-Pro-B Natriuret Pep Total Protein Albumin Triglycerides Arterial Blood Glucose Urine pH Ur Specific [place] Coronavirus (PCR) 04/07/21 04/07/21 04/07/21 07:55 11:57 17:12 WBC RBC Hgb Hct MCV MCHC RDW Plt Count Lymph % (Auto) [place] % (Auto) Lymph # (Auto) [place] # (Auto) Seg Neutrophils % Seg Neuts % (Manual) Lymphocytes % (Manual) Monocytes % (Manual) Nucleated RBC % Seg Neutrophils # Seg Neutrophils # Man Lymphocytes # (Manual) Monocytes # (Manual) PT INR APTT D-Dimer Heparin Anti-Xa Level < 0.10 L ABG pH POC ABG pCO2 POC ABG pO2 ABG pO2 ABG HCO3 ABG O2 Saturation ABG Base Excess ABG Hemoglobin ABG Oxyhemoglobin ABG Sodium ABG Potassium ABG Glucose Oxyhemoglobin Carboxyhemoglobin Sodium Potassium Chloride Carbon Dioxide BUN Creatinine Glucose POC Glucose 182 H 165 H Lactic Acid Calcium Phosphorus Magnesium Ferritin Lactate Dehydrogenase C-Reactive Protein NT-Pro-B Natriuret Pep Total Protein Albumin Triglycerides Arterial Blood Glucose Urine pH Ur Specific [place] Coronavirus (PCR) 04/07/21 04/08/21 04/08/21 19:55 00:16 03:57 WBC RBC Hgb Hct MCV MCHC RDW Plt Count Lymph % (Auto) [place] % (Auto) Lymph # (Auto) [place] # (Auto) Seg Neutrophils % Seg Neuts % (Manual) Lymphocytes % (Manual) Monocytes % (Manual) Nucleated RBC % Seg Neutrophils # Seg Neutrophils # Man Lymphocytes # (Manual) Monocytes # (Manual) PT INR APTT D-Dimer Heparin Anti-Xa Level < 0.10 L ABG pH POC ABG pCO2 POC ABG pO2 ABG pO2 ABG HCO3 ABG O2 Saturation ABG Base Excess ABG Hemoglobin ABG Oxyhemoglobin ABG Sodium ABG Potassium ABG Glucose Oxyhemoglobin Carboxyhemoglobin Sodium Potassium 5.8 H Chloride 95.5 L Carbon Dioxide 37 H BUN Creatinine 0.5 L Glucose 161 H POC Glucose 175 H Lactic Acid Calcium Phosphorus Magnesium Ferritin Lactate Dehydrogenase C-Reactive Protein NT-Pro-B Natriuret Pep Total Protein Albumin Triglycerides Arterial Blood Glucose Urine pH Ur Specific [place] Coronavirus (PCR) 04/08/21 04/08/21 04/08/21 04:00 05:43 09:26 WBC RBC 3.25 L Hgb 9.9 L Hct 30.8 L MCV 95 H MCHC RDW 16.0 H Plt Count 487 H Lymph % (Auto) [place] % (Auto) Lymph # (Auto) [place] # (Auto) Seg Neutrophils % Seg Neuts % (Manual) Lymphocytes % (Manual) Monocytes % (Manual) Nucleated RBC % Seg Neutrophils # Seg Neutrophils # Man Lymphocytes # (Manual) Monocytes # (Manual) PT INR APTT D-Dimer Heparin Anti-Xa Level ABG pH POC ABG pCO2 POC ABG pO2 ABG pO2 ABG HCO3 ABG O2 Saturation ABG Base Excess ABG Hemoglobin ABG Oxyhemoglobin ABG Sodium ABG Potassium ABG Glucose Oxyhemoglobin Carboxyhemoglobin Sodium Potassium Chloride Carbon Dioxide BUN Creatinine Glucose POC Glucose 162 H 164 H Lactic Acid Calcium Phosphorus Magnesium Ferritin Lactate Dehydrogenase C-Reactive Protein NT-Pro-B Natriuret Pep Total Protein Albumin Triglycerides Arterial Blood Glucose Urine pH Ur Specific [place] Coronavirus (PCR) 04/08/21 04/08/21 04/08/21 11:53 17:19 20:35 WBC RBC Hgb Hct MCV MCHC RDW Plt Count Lymph % (Auto) [place] % (Auto) Lymph # (Auto) [place] # (Auto) Seg Neutrophils % Seg Neuts % (Manual) Lymphocytes % (Manual) Monocytes % (Manual) Nucleated RBC % Seg Neutrophils # Seg Neutrophils # Man Lymphocytes # (Manual) Monocytes # (Manual) PT INR APTT D-Dimer Heparin Anti-Xa Level ABG pH POC ABG pCO2 POC ABG pO2 ABG pO2 ABG HCO3 ABG O2 Saturation ABG Base Excess ABG Hemoglobin ABG Oxyhemoglobin ABG Sodium ABG Potassium ABG Glucose Oxyhemoglobin Carboxyhemoglobin Sodium Potassium Chloride Carbon Dioxide BUN Creatinine Glucose POC Glucose 170 H 157 H 190 H Lactic Acid Calcium Phosphorus Magnesium Ferritin Lactate Dehydrogenase C-Reactive Protein NT-Pro-B Natriuret Pep Total Protein Albumin Triglycerides Arterial Blood Glucose Urine pH Ur Specific [place] Coronavirus (PCR) 04/08/21 04/09/21 04/09/21 23:52 04:21 04:21 WBC 11.4 H RBC 2.97 L Hgb 8.9 L Hct 27.8 L MCV MCHC RDW 15.8 H Plt Count 485 H Lymph % (Auto) [place] % (Auto) Lymph # (Auto) [place] # (Auto) Seg Neutrophils % Seg Neuts % (Manual) Lymphocytes % (Manual) Monocytes % (Manual) Nucleated RBC % Seg Neutrophils # Seg Neutrophils # Man Lymphocytes # (Manual) Monocytes # (Manual) PT INR APTT D-Dimer Heparin Anti-Xa Level ABG pH POC ABG pCO2 POC ABG pO2 ABG pO2 ABG HCO3 ABG O2 Saturation ABG Base Excess ABG Hemoglobin ABG Oxyhemoglobin ABG Sodium ABG Potassium ABG Glucose Oxyhemoglobin Carboxyhemoglobin Sodium Potassium Chloride 97.1 L Carbon Dioxide 40 H BUN 21 H Creatinine 0.5 L Glucose 149 H POC Glucose 170 H Lactic Acid Calcium Phosphorus 1.90 L D Magnesium Ferritin Lactate Dehydrogenase C-Reactive Protein NT-Pro-B Natriuret Pep Total Protein Albumin Triglycerides Arterial Blood Glucose Urine pH Ur Specific [place] Coronavirus (PCR) 04/09/21 04/09/21 04/09/21 05:27 11:55 17:11 WBC RBC Hgb Hct MCV MCHC RDW Plt Count Lymph % (Auto) [place] % (Auto) Lymph # (Auto) [place] # (Auto) Seg Neutrophils % Seg Neuts % (Manual) Lymphocytes % (Manual) Monocytes % (Manual) Nucleated RBC % Seg Neutrophils # Seg Neutrophils # Man Lymphocytes # (Manual) Monocytes # (Manual) PT INR APTT D-Dimer Heparin Anti-Xa Level ABG pH POC ABG pCO2 POC ABG pO2 ABG pO2 ABG HCO3 ABG O2 Saturation ABG Base Excess ABG Hemoglobin ABG Oxyhemoglobin ABG Sodium ABG Potassium ABG Glucose Oxyhemoglobin Carboxyhemoglobin Sodium Potassium Chloride Carbon Dioxide BUN Creatinine Glucose POC Glucose 144 H 190 H 163 H Lactic Acid Calcium Phosphorus Magnesium Ferritin Lactate Dehydrogenase C-Reactive Protein NT-Pro-B Natriuret Pep Total Protein Albumin Triglycerides Arterial Blood Glucose Urine pH Ur Specific [place] Coronavirus (PCR) 04/09/21 04/09/21 04/09/21 20:10 21:12 23:33 WBC RBC Hgb Hct MCV MCHC RDW Plt Count Lymph % (Auto) [place] % (Auto) Lymph # (Auto) [place] # (Auto) Seg Neutrophils % Seg Neuts % (Manual) Lymphocytes % (Manual) Monocytes % (Manual) Nucleated RBC % Seg Neutrophils # Seg Neutrophils # Man Lymphocytes # (Manual) Monocytes # (Manual) PT INR APTT D-Dimer Heparin Anti-Xa Level ABG pH POC ABG pCO2 POC ABG pO2 ABG pO2 68.1 L ABG HCO3 41.3 H ABG O2 Saturation ABG Base Excess 14.6 H ABG Hemoglobin 10.2 L ABG Oxyhemoglobin ABG Sodium ABG Potassium ABG Glucose Oxyhemoglobin 94.7 L Carboxyhemoglobin Sodium Potassium Chloride Carbon Dioxide BUN Creatinine Glucose POC Glucose 163 H 164 H Lactic Acid Calcium Phosphorus Magnesium Ferritin Lactate Dehydrogenase C-Reactive Protein NT-Pro-B Natriuret Pep Total Protein Albumin Triglycerides Arterial Blood Glucose Urine pH Ur Specific [place] Coronavirus (PCR) 04/10/21 04/10/21 04/10/21 05:26 11:41 13:00 WBC RBC 3.09 L Hgb 9.3 L Hct 28.3 L MCV MCHC RDW 15.8 H Plt Count 480 H Lymph % (Auto) [place] % (Auto) Lymph # (Auto) [place] # (Auto) Seg Neutrophils % Seg Neuts % (Manual) Lymphocytes % (Manual) Monocytes % (Manual) Nucleated RBC % Seg Neutrophils # Seg Neutrophils # Man Lymphocytes # (Manual) Monocytes # (Manual) PT INR APTT D-Dimer Heparin Anti-Xa Level ABG pH POC ABG pCO2 POC ABG pO2 ABG pO2 ABG HCO3 ABG O2 Saturation ABG Base Excess ABG Hemoglobin ABG Oxyhemoglobin ABG Sodium ABG Potassium ABG Glucose Oxyhemoglobin Carboxyhemoglobin Sodium Potassium Chloride Carbon Dioxide BUN Creatinine Glucose POC Glucose 172 H 150 H Lactic Acid Calcium Phosphorus Magnesium Ferritin Lactate Dehydrogenase C-Reactive Protein NT-Pro-B Natriuret Pep Total Protein Albumin Triglycerides Arterial Blood Glucose Urine pH Ur Specific [place] Coronavirus (PCR) 04/10/21 04/10/21 04/10/21 13:00 17:46 21:37 WBC RBC Hgb Hct MCV MCHC RDW Plt Count Lymph % (Auto) [place] % (Auto) Lymph # (Auto) [place] # (Auto) Seg Neutrophils % Seg Neuts % (Manual) Lymphocytes % (Manual) Monocytes % (Manual) Nucleated RBC % Seg Neutrophils # Seg Neutrophils # Man Lymphocytes # (Manual) Monocytes # (Manual) PT INR APTT D-Dimer Heparin Anti-Xa Level ABG pH POC ABG pCO2 POC ABG pO2 ABG pO2 ABG HCO3 ABG O2 Saturation ABG Base Excess ABG Hemoglobin ABG Oxyhemoglobin ABG Sodium ABG Potassium ABG Glucose Oxyhemoglobin Carboxyhemoglobin Sodium Potassium Chloride 96.4 L Carbon Dioxide 34 H BUN Creatinine 0.5 L Glucose 165 H POC Glucose 165 H 166 H Lactic Acid Calcium Phosphorus Magnesium Ferritin Lactate Dehydrogenase C-Reactive Protein NT-Pro-B Natriuret Pep Total Protein Albumin Triglycerides Arterial Blood Glucose Urine pH Ur Specific [place] Coronavirus (PCR) 04/10/21 04/11/21 04/11/21 23:56 04:30 05:39 WBC 11.5 H RBC 3.02 L Hgb 8.9 L Hct 27.8 L MCV MCHC RDW 16.0 H Plt Count 505 H Lymph % (Auto) [place] % (Auto) Lymph # (Auto) [place] # (Auto) Seg Neutrophils % Seg Neuts % (Manual) Lymphocytes % (Manual) Monocytes % (Manual) Nucleated RBC % Seg Neutrophils # Seg Neutrophils # Man Lymphocytes # (Manual) Monocytes # (Manual) PT INR APTT D-Dimer Heparin Anti-Xa Level ABG pH POC ABG pCO2 POC ABG pO2 ABG pO2 ABG HCO3 ABG O2 Saturation ABG Base Excess ABG Hemoglobin ABG Oxyhemoglobin ABG Sodium ABG Potassium ABG Glucose Oxyhemoglobin Carboxyhemoglobin Sodium Potassium Chloride Carbon Dioxide BUN Creatinine Glucose POC Glucose 156 H 164 H Lactic Acid Calcium Phosphorus Magnesium Ferritin Lactate Dehydrogenase C-Reactive Protein NT-Pro-B Natriuret Pep Total Protein Albumin Triglycerides Arterial Blood Glucose Urine pH Ur Specific [place] Coronavirus (PCR) 04/11/21 04/11/21 04/11/21 06:47 06:47 11:29 WBC RBC 3.35 L Hgb 9.8 L Hct 30.7 L MCV MCHC RDW 16.3 H Plt Count 520 H Lymph % (Auto) [place] % (Auto) Lymph # (Auto) [place] # (Auto) Seg Neutrophils % Seg Neuts % (Manual) 76.0 H Lymphocytes % (Manual) 10.0 L Monocytes % (Manual) Nucleated RBC % Seg Neutrophils # Seg Neutrophils # Man 8.3 H Lymphocytes # (Manual) 1.1 L Monocytes # (Manual) PT INR APTT D-Dimer Heparin Anti-Xa Level ABG pH POC ABG pCO2 POC ABG pO2 ABG pO2 ABG HCO3 ABG O2 Saturation ABG Base Excess ABG Hemoglobin ABG Oxyhemoglobin ABG Sodium ABG Potassium ABG Glucose Oxyhemoglobin Carboxyhemoglobin Sodium Potassium Chloride 97.7 L Carbon Dioxide 34 H BUN Creatinine 0.4 L Glucose 178 H POC Glucose 170 H Lactic Acid Calcium Phosphorus Magnesium Ferritin Lactate Dehydrogenase C-Reactive Protein NT-Pro-B Natriuret Pep Total Protein Albumin Triglycerides Arterial Blood Glucose Urine pH Ur Specific [place] Coronavirus (PCR) 04/11/21 04/11/21 04/11/21 18:17 18:17 18:17 WBC RBC 3.22 L Hgb 9.5 L Hct 29.8 L MCV MCHC RDW 16.0 H Plt Count Lymph % (Auto) [place] % (Auto) Lymph # (Auto) [place] # (Auto) Seg Neutrophils % Seg Neuts % (Manual) Lymphocytes % (Manual) Monocytes % (Manual) Nucleated RBC % Seg Neutrophils # Seg Neutrophils # Man Lymphocytes # (Manual) Monocytes # (Manual) PT INR APTT 61.1 H* D-Dimer Heparin Anti-Xa Level ABG pH POC ABG pCO2 POC ABG pO2 ABG pO2 ABG HCO3 ABG O2 Saturation ABG Base Excess ABG Hemoglobin ABG Oxyhemoglobin ABG Sodium ABG Potassium ABG Glucose Oxyhemoglobin Carboxyhemoglobin Sodium Potassium Chloride Carbon Dioxide BUN Creatinine 0.3 L Glucose POC Glucose Lactic Acid Calcium Phosphorus Magnesium Ferritin Lactate Dehydrogenase C-Reactive Protein NT-Pro-B Natriuret Pep Total Protein Albumin Triglycerides Arterial Blood Glucose Urine pH Ur Specific [place] Coronavirus (PCR) 04/11/21 04/12/21 04/12/21 18:25 00:19 05:11 WBC RBC 2.92 L Hgb 8.6 L Hct 26.9 L MCV MCHC RDW 16.3 H Plt Count 460 H Lymph % (Auto) [place] % (Auto) Lymph # (Auto) [place] # (Auto) Seg Neutrophils % Seg Neuts % (Manual) Lymphocytes % (Manual) Monocytes % (Manual) Nucleated RBC % Seg Neutrophils # Seg Neutrophils # Man Lymphocytes # (Manual) Monocytes # (Manual) PT INR APTT D-Dimer Heparin Anti-Xa Level ABG pH POC ABG pCO2 POC ABG pO2 ABG pO2 ABG HCO3 ABG O2 Saturation ABG Base Excess ABG Hemoglobin ABG Oxyhemoglobin ABG Sodium ABG Potassium ABG Glucose Oxyhemoglobin Carboxyhemoglobin Sodium Potassium Chloride Carbon Dioxide BUN Creatinine Glucose POC Glucose 167 H 128 H Lactic Acid Calcium Phosphorus Magnesium Ferritin Lactate Dehydrogenase C-Reactive Protein NT-Pro-B Natriuret Pep Total Protein Albumin Triglycerides Arterial Blood Glucose Urine pH Ur Specific [place] Coronavirus (PCR) 04/12/21 04/12/21 04/12/21 05:11 05:11 06:23 WBC RBC Hgb Hct MCV MCHC RDW Plt Count Lymph % (Auto) [place] % (Auto) Lymph # (Auto) [place] # (Auto) Seg Neutrophils % Seg Neuts % (Manual) Lymphocytes % (Manual) Monocytes % (Manual) Nucleated RBC % Seg Neutrophils # Seg Neutrophils # Man Lymphocytes # (Manual) Monocytes # (Manual) PT INR APTT D-Dimer Heparin Anti-Xa Level 1.03 H ABG pH POC ABG pCO2 POC ABG pO2 ABG pO2 ABG HCO3 ABG O2 Saturation ABG Base Excess ABG Hemoglobin ABG Oxyhemoglobin ABG Sodium ABG Potassium ABG Glucose Oxyhemoglobin Carboxyhemoglobin Sodium Potassium Chloride Carbon Dioxide 34 H BUN Creatinine 0.3 L Glucose 153 H POC Glucose 162 H Lactic Acid Calcium Phosphorus Magnesium Ferritin Lactate Dehydrogenase C-Reactive Protein NT-Pro-B Natriuret Pep Total Protein Albumin Triglycerides Arterial Blood Glucose Urine pH Ur Specific [place] Coronavirus (PCR) 04/12/21 04/12/21 04/12/21 09:45 11:08 15:56 WBC RBC Hgb Hct MCV MCHC RDW Plt Count Lymph % (Auto) [place] % (Auto) Lymph # (Auto) [place] # (Auto) Seg Neutrophils % Seg Neuts % (Manual) Lymphocytes % (Manual) Monocytes % (Manual) Nucleated RBC % Seg Neutrophils # Seg Neutrophils # Man Lymphocytes # (Manual) Monocytes # (Manual) PT INR APTT D-Dimer Heparin Anti-Xa Level ABG pH POC ABG pCO2 POC ABG pO2 ABG pO2 70.8 L ABG HCO3 41.0 H ABG O2 Saturation ABG Base Excess 13.7 H ABG Hemoglobin 8.3 L ABG Oxyhemoglobin ABG Sodium ABG Potassium ABG Glucose Oxyhemoglobin 94.0 L Carboxyhemoglobin Sodium Potassium Chloride Carbon Dioxide BUN Creatinine Glucose POC Glucose 174 H 146 H Lactic Acid Calcium Phosphorus Magnesium Ferritin Lactate Dehydrogenase C-Reactive Protein NT-Pro-B Natriuret Pep Total Protein Albumin Triglycerides Arterial Blood Glucose Urine pH Ur Specific [place] Coronavirus (PCR) 04/12/21 04/12/21 04/13/21 21:55 23:25 04:34 WBC 12.5 H RBC 2.97 L Hgb 8.9 L Hct 27.3 L MCV MCHC RDW 16.4 H Plt Count 470 H Lymph % (Auto) [place] % (Auto) Lymph # (Auto) [place] # (Auto) Seg Neutrophils % Seg Neuts % (Manual) Lymphocytes % (Manual) Monocytes % (Manual) Nucleated RBC % Seg Neutrophils # Seg Neutrophils # Man Lymphocytes # (Manual) Monocytes # (Manual) PT INR APTT D-Dimer Heparin Anti-Xa Level ABG pH POC ABG pCO2 POC ABG pO2 ABG pO2 ABG HCO3 ABG O2 Saturation ABG Base Excess ABG Hemoglobin ABG Oxyhemoglobin ABG Sodium ABG Potassium ABG Glucose Oxyhemoglobin Carboxyhemoglobin Sodium Potassium Chloride Carbon Dioxide BUN Creatinine Glucose POC Glucose 142 H 170 H Lactic Acid Calcium Phosphorus Magnesium Ferritin Lactate Dehydrogenase C-Reactive Protein NT-Pro-B Natriuret Pep Total Protein Albumin Triglycerides Arterial Blood Glucose Urine pH Ur Specific [place] Coronavirus (PCR) 04/13/21 04/13/21 04/13/21 04:34 05:17 11:14 WBC RBC Hgb Hct MCV MCHC RDW Plt Count Lymph % (Auto) [place] % (Auto) Lymph # (Auto) [place] # (Auto) Seg Neutrophils % Seg Neuts % (Manual) Lymphocytes % (Manual) Monocytes % (Manual) Nucleated RBC % Seg Neutrophils # Seg Neutrophils # Man Lymphocytes # (Manual) Monocytes # (Manual) PT INR APTT D-Dimer Heparin Anti-Xa Level ABG pH POC ABG pCO2 POC ABG pO2 ABG pO2 ABG HCO3 ABG O2 Saturation ABG Base Excess ABG Hemoglobin ABG Oxyhemoglobin ABG Sodium ABG Potassium ABG Glucose Oxyhemoglobin Carboxyhemoglobin Sodium Potassium Chloride 96.6 L Carbon Dioxide 41 H* D BUN Creatinine 0.3 L Glucose 171 H POC Glucose 141 H 149 H Lactic Acid Calcium Phosphorus Magnesium Ferritin Lactate Dehydrogenase C-Reactive Protein NT-Pro-B Natriuret Pep Total Protein Albumin Triglycerides Arterial Blood Glucose Urine pH Ur Specific [place] Coronavirus (PCR) 04/13/21 04/13/21 04/14/21 15:51 23:35 04:32 WBC 13.8 H RBC 2.64 L Hgb 8.0 L Hct 24.1 L MCV MCHC RDW 16.1 H Plt Count Lymph % (Auto) [place] % (Auto) Lymph # (Auto) [place] # (Auto) Seg Neutrophils % Seg Neuts % (Manual) Lymphocytes % (Manual) Monocytes % (Manual) Nucleated RBC % Seg Neutrophils # Seg Neutrophils # Man Lymphocytes # (Manual) Monocytes # (Manual) PT INR APTT D-Dimer Heparin Anti-Xa Level ABG pH POC ABG pCO2 POC ABG pO2 ABG pO2 ABG HCO3 ABG O2 Saturation ABG Base Excess ABG Hemoglobin ABG Oxyhemoglobin ABG Sodium ABG Potassium ABG Glucose Oxyhemoglobin Carboxyhemoglobin Sodium Potassium Chloride Carbon Dioxide BUN Creatinine Glucose POC Glucose 136 H 167 H Lactic Acid Calcium Phosphorus Magnesium Ferritin Lactate Dehydrogenase C-Reactive Protein NT-Pro-B Natriuret Pep Total Protein Albumin Triglycerides Arterial Blood Glucose Urine pH Ur Specific [place] Coronavirus (PCR) 04/14/21 04/14/21 04/14/21 04:32 05:18 11:03 WBC RBC Hgb Hct MCV MCHC RDW Plt Count Lymph % (Auto) [place] % (Auto) Lymph # (Auto) [place] # (Auto) Seg Neutrophils % Seg Neuts % (Manual) Lymphocytes % (Manual) Monocytes % (Manual) Nucleated RBC % Seg Neutrophils # Seg Neutrophils # Man Lymphocytes # (Manual) Monocytes # (Manual) PT INR APTT D-Dimer Heparin Anti-Xa Level ABG pH POC ABG pCO2 POC ABG pO2 ABG pO2 ABG HCO3 ABG O2 Saturation ABG Base Excess ABG Hemoglobin ABG Oxyhemoglobin ABG Sodium ABG Potassium ABG Glucose Oxyhemoglobin Carboxyhemoglobin Sodium Potassium Chloride 95.5 L Carbon Dioxide 38 H BUN Creatinine 0.4 L Glucose 141 H POC Glucose 140 H 143 H Lactic Acid Calcium Phosphorus Magnesium Ferritin Lactate Dehydrogenase C-Reactive Protein NT-Pro-B Natriuret Pep Total Protein Albumin Triglycerides Arterial Blood Glucose Urine pH Ur Specific [place] Coronavirus (PCR) 04/14/21 04/14/21 04/14/21 16:38 23:46 Unknown WBC RBC Hgb Hct MCV MCHC RDW Plt Count Lymph % (Auto) [place] % (Auto) Lymph # (Auto) [place] # (Auto) Seg Neutrophils % Seg Neuts % (Manual) Lymphocytes % (Manual) Monocytes % (Manual) Nucleated RBC % Seg Neutrophils # Seg Neutrophils # Man Lymphocytes # (Manual) Monocytes # (Manual) PT INR APTT D-Dimer Heparin Anti-Xa Level ABG pH POC ABG pCO2 POC ABG pO2 ABG pO2 ABG HCO3 ABG O2 Saturation ABG Base Excess ABG Hemoglobin ABG Oxyhemoglobin ABG Sodium ABG Potassium ABG Glucose Oxyhemoglobin Carboxyhemoglobin Sodium Potassium Chloride Carbon Dioxide BUN Creatinine Glucose POC Glucose 157 H 155 H Lactic Acid Calcium Phosphorus Magnesium Ferritin Lactate Dehydrogenase C-Reactive Protein NT-Pro-B Natriuret Pep Total Protein Albumin Triglycerides Arterial Blood Glucose Urine pH 8.0 H Ur Specific [place] Coronavirus (PCR) 04/15/21 04/15/21 04/15/21 04:44 04:44 05:52 WBC 15.8 H RBC 2.96 L Hgb 8.9 L Hct 27.1 L MCV MCHC RDW 16.5 H Plt Count 507 H Lymph % (Auto) [place] % (Auto) Lymph # (Auto) [place] # (Auto) Seg Neutrophils % Seg Neuts % (Manual) Lymphocytes % (Manual) Monocytes % (Manual) Nucleated RBC % Seg Neutrophils # Seg Neutrophils # Man Lymphocytes # (Manual) Monocytes # (Manual) PT INR APTT D-Dimer Heparin Anti-Xa Level ABG pH POC ABG pCO2 POC ABG pO2 ABG pO2 ABG HCO3 ABG O2 Saturation ABG Base Excess ABG Hemoglobin ABG Oxyhemoglobin ABG Sodium ABG Potassium ABG Glucose Oxyhemoglobin Carboxyhemoglobin Sodium Potassium Chloride 96.9 L Carbon Dioxide 38 H BUN Creatinine 0.4 L Glucose 163 H POC Glucose 167 H Lactic Acid Calcium Phosphorus Magnesium Ferritin Lactate Dehydrogenase C-Reactive Protein NT-Pro-B Natriuret Pep Total Protein Albumin Triglycerides Arterial Blood Glucose Urine pH Ur Specific [place] Coronavirus (PCR) 04/15/21 04/15/21 04/15/21 11:35 17:20 18:10 WBC RBC Hgb Hct MCV MCHC RDW Plt Count Lymph % (Auto) [place] % (Auto) Lymph # (Auto) [place] # (Auto) Seg Neutrophils % Seg Neuts % (Manual) Lymphocytes % (Manual) Monocytes % (Manual) Nucleated RBC % Seg Neutrophils # Seg Neutrophils # Man Lymphocytes # (Manual) Monocytes # (Manual) PT INR APTT D-Dimer Heparin Anti-Xa Level ABG pH 7.477 H POC ABG pCO2 POC ABG pO2 ABG pO2 ABG HCO3 40.6 H ABG O2 Saturation ABG Base Excess 15.2 H ABG Hemoglobin 9.0 L ABG Oxyhemoglobin ABG Sodium ABG Potassium ABG Glucose Oxyhemoglobin 94.7 L Carboxyhemoglobin Sodium Potassium Chloride Carbon Dioxide BUN Creatinine Glucose POC Glucose 179 H 165 H Lactic Acid Calcium Phosphorus Magnesium Ferritin Lactate Dehydrogenase C-Reactive Protein NT-Pro-B Natriuret Pep Total Protein Albumin Triglycerides Arterial Blood Glucose Urine pH Ur Specific [place] Coronavirus (PCR) 04/15/21 04/16/21 04/16/21 23:39 04:33 04:33 WBC 13.1 H RBC 3.26 L Hgb 9.5 L Hct 30.2 L MCV MCHC 31 L RDW 16.2 H Plt Count Lymph % (Auto) [place] % (Auto) Lymph # (Auto) [place] # (Auto) Seg Neutrophils % Seg Neuts % (Manual) Lymphocytes % (Manual) Monocytes % (Manual) Nucleated RBC % Seg Neutrophils # Seg Neutrophils # Man Lymphocytes # (Manual) Monocytes # (Manual) PT INR APTT D-Dimer Heparin Anti-Xa Level ABG pH POC ABG pCO2 POC ABG pO2 ABG pO2 ABG HCO3 ABG O2 Saturation ABG Base Excess ABG Hemoglobin ABG Oxyhemoglobin ABG Sodium ABG Potassium ABG Glucose Oxyhemoglobin Carboxyhemoglobin Sodium Potassium Chloride 95.8 L Carbon Dioxide 34 H BUN 24 H Creatinine 0.4 L Glucose 153 H POC Glucose 155 H Lactic Acid Calcium Phosphorus Magnesium 2.40 H Ferritin Lactate Dehydrogenase C-Reactive Protein NT-Pro-B Natriuret Pep Total Protein Albumin Triglycerides Arterial Blood Glucose Urine pH Ur Specific [place] Coronavirus (PCR) 04/16/21 04/16/21 04/16/21 04:55 05:29 11:02 WBC RBC Hgb Hct MCV MCHC RDW Plt Count Lymph % (Auto) [place] % (Auto) Lymph # (Auto) [place] # (Auto) Seg Neutrophils % Seg Neuts % (Manual) Lymphocytes % (Manual) Monocytes % (Manual) Nucleated RBC % Seg Neutrophils # Seg Neutrophils # Man Lymphocytes # (Manual) Monocytes # (Manual) PT INR APTT D-Dimer Heparin Anti-Xa Level ABG pH 7.487 H POC ABG pCO2 POC ABG pO2 ABG pO2 75.4 L ABG HCO3 40.6 H ABG O2 Saturation ABG Base Excess 15.3 H ABG Hemoglobin 8.9 L ABG Oxyhemoglobin ABG Sodium ABG Potassium ABG Glucose Oxyhemoglobin Carboxyhemoglobin Sodium Potassium Chloride Carbon Dioxide BUN Creatinine Glucose POC Glucose 168 H 170 H Lactic Acid Calcium Phosphorus Magnesium Ferritin Lactate Dehydrogenase C-Reactive Protein NT-Pro-B Natriuret Pep Total Protein Albumin Triglycerides Arterial Blood Glucose Urine pH Ur Specific [place] Coronavirus (PCR) 04/16/21 04/16/21 04/17/21 16:13 23:41 04:25 WBC 12.5 H RBC 3.00 L Hgb 8.9 L Hct 27.2 L MCV MCHC RDW 16.0 H Plt Count Lymph % (Auto) [place] % (Auto) Lymph # (Auto) [place] # (Auto) Seg Neutrophils % Seg Neuts % (Manual) Lymphocytes % (Manual) Monocytes % (Manual) Nucleated RBC % Seg Neutrophils # Seg Neutrophils # Man Lymphocytes # (Manual) Monocytes # (Manual) PT INR APTT D-Dimer Heparin Anti-Xa Level ABG pH POC ABG pCO2 POC ABG pO2 ABG pO2 ABG HCO3 ABG O2 Saturation ABG Base Excess ABG Hemoglobin ABG Oxyhemoglobin ABG Sodium ABG Potassium ABG Glucose Oxyhemoglobin Carboxyhemoglobin Sodium Potassium Chloride Carbon Dioxide BUN Creatinine Glucose POC Glucose 167 H 150 H Lactic Acid Calcium Phosphorus Magnesium Ferritin Lactate Dehydrogenase C-Reactive Protein NT-Pro-B Natriuret Pep Total Protein Albumin Triglycerides Arterial Blood Glucose Urine pH Ur Specific [place] Coronavirus (PCR) 04/17/21 04/17/21 04/17/21 04:25 05:23 11:18 WBC RBC Hgb Hct MCV MCHC RDW Plt Count Lymph % (Auto) [place] % (Auto) Lymph # (Auto) [place] # (Auto) Seg Neutrophils % Seg Neuts % (Manual) Lymphocytes % (Manual) Monocytes % (Manual) Nucleated RBC % Seg Neutrophils # Seg Neutrophils # Man Lymphocytes # (Manual) Monocytes # (Manual) PT INR APTT D-Dimer Heparin Anti-Xa Level ABG pH POC ABG pCO2 POC ABG pO2 ABG pO2 ABG HCO3 ABG O2 Saturation ABG Base Excess ABG Hemoglobin ABG Oxyhemoglobin ABG Sodium ABG Potassium ABG Glucose Oxyhemoglobin Carboxyhemoglobin Sodium 136 L Potassium Chloride 92.4 L Carbon Dioxide 36 H BUN 23 H Creatinine 0.4 L Glucose 145 H POC Glucose 128 H 163 H Lactic Acid Calcium Phosphorus Magnesium Ferritin Lactate Dehydrogenase C-Reactive Protein NT-Pro-B Natriuret Pep Total Protein Albumin Triglycerides Arterial Blood Glucose Urine pH Ur Specific [place] Coronavirus (PCR) 04/17/21 04/17/21 04/18/21 16:50 21:04 00:18 WBC RBC Hgb Hct MCV MCHC RDW Plt Count Lymph % (Auto) [place] % (Auto) Lymph # (Auto) [place] # (Auto) Seg Neutrophils % Seg Neuts % (Manual) Lymphocytes % (Manual) Monocytes % (Manual) Nucleated RBC % Seg Neutrophils # Seg Neutrophils # Man Lymphocytes # (Manual) Monocytes # (Manual) PT INR APTT D-Dimer Heparin Anti-Xa Level ABG pH POC ABG pCO2 POC ABG pO2 ABG pO2 ABG HCO3 ABG O2 Saturation ABG Base Excess ABG Hemoglobin ABG Oxyhemoglobin ABG Sodium ABG Potassium ABG Glucose Oxyhemoglobin Carboxyhemoglobin Sodium Potassium Chloride Carbon Dioxide BUN Creatinine Glucose POC Glucose 137 H 186 H 194 H Lactic Acid Calcium Phosphorus Magnesium Ferritin Lactate Dehydrogenase C-Reactive Protein NT-Pro-B Natriuret Pep Total Protein Albumin Triglycerides Arterial Blood Glucose Urine pH Ur Specific [place] Coronavirus (PCR) 04/18/21 04/18/21 04/18/21 04:20 04:20 05:21 WBC 14.2 H RBC 2.92 L Hgb 8.5 L Hct 26.3 L MCV MCHC RDW 16.1 H Plt Count Lymph % (Auto) [place] % (Auto) Lymph # (Auto) [place] # (Auto) Seg Neutrophils % Seg Neuts % (Manual) Lymphocytes % (Manual) Monocytes % (Manual) Nucleated RBC % Seg Neutrophils # Seg Neutrophils # Man Lymphocytes # (Manual) Monocytes # (Manual) PT INR APTT D-Dimer Heparin Anti-Xa Level ABG pH POC ABG pCO2 POC ABG pO2 ABG pO2 ABG HCO3 ABG O2 Saturation ABG Base Excess ABG Hemoglobin ABG Oxyhemoglobin ABG Sodium ABG Potassium ABG Glucose Oxyhemoglobin Carboxyhemoglobin Sodium Potassium Chloride 95.7 L Carbon Dioxide 33 H BUN 21 H Creatinine 0.3 L Glucose 120 H POC Glucose 107 H Lactic Acid Calcium Phosphorus Magnesium Ferritin Lactate Dehydrogenase C-Reactive Protein NT-Pro-B Natriuret Pep Total Protein Albumin Triglycerides Arterial Blood Glucose Urine pH Ur Specific [place] Coronavirus (PCR) 04/18/21 04/18/21 04/18/21 05:26 11:30 11:33 WBC RBC Hgb Hct MCV MCHC RDW Plt Count Lymph % (Auto) [place] % (Auto) Lymph # (Auto) [place] # (Auto) Seg Neutrophils % Seg Neuts % (Manual) Lymphocytes % (Manual) Monocytes % (Manual) Nucleated RBC % Seg Neutrophils # Seg Neutrophils # Man Lymphocytes # (Manual) Monocytes # (Manual) PT INR APTT D-Dimer Heparin Anti-Xa Level ABG pH 7.469 H POC ABG pCO2 POC ABG pO2 ABG pO2 108.9 H ABG HCO3 36.2 H ABG O2 Saturation ABG Base Excess 11.2 H ABG Hemoglobin 8.8 L ABG Oxyhemoglobin ABG Sodium ABG Potassium ABG Glucose Oxyhemoglobin Carboxyhemoglobin Sodium Potassium Chloride Carbon Dioxide BUN Creatinine Glucose POC Glucose 111 H 113 H Lactic Acid Calcium Phosphorus Magnesium Ferritin Lactate Dehydrogenase C-Reactive Protein NT-Pro-B Natriuret Pep Total Protein Albumin Triglycerides Arterial Blood Glucose Urine pH Ur Specific [place] Coronavirus (PCR) 04/18/21 04/18/21 04/19/21 16:53 23:26 04:26 WBC 13.6 H RBC 2.69 L Hgb 8.5 L Hct 24.4 L MCV MCHC 35 H RDW 15.9 H Plt Count Lymph % (Auto) [place] % (Auto) Lymph # (Auto) [place] # (Auto) Seg Neutrophils % Seg Neuts % (Manual) Lymphocytes % (Manual) Monocytes % (Manual) Nucleated RBC % Seg Neutrophils # Seg Neutrophils # Man Lymphocytes # (Manual) Monocytes # (Manual) PT INR APTT D-Dimer Heparin Anti-Xa Level ABG pH POC ABG pCO2 POC ABG pO2 ABG pO2 ABG HCO3 ABG O2 Saturation ABG Base Excess ABG Hemoglobin ABG Oxyhemoglobin ABG Sodium ABG Potassium ABG Glucose Oxyhemoglobin Carboxyhemoglobin Sodium Potassium Chloride Carbon Dioxide BUN Creatinine Glucose POC Glucose 139 H 137 H Lactic Acid Calcium Phosphorus Magnesium Ferritin Lactate Dehydrogenase C-Reactive Protein NT-Pro-B Natriuret Pep Total Protein Albumin Triglycerides Arterial Blood Glucose Urine pH Ur Specific [place] Coronavirus (PCR) 04/19/21 04/19/21 04/19/21 04:26 05:16 11:01 WBC RBC Hgb Hct MCV MCHC RDW Plt Count Lymph % (Auto) [place] % (Auto) Lymph # (Auto) [place] # (Auto) Seg Neutrophils % Seg Neuts % (Manual) Lymphocytes % (Manual) Monocytes % (Manual) Nucleated RBC % Seg Neutrophils # Seg Neutrophils # Man Lymphocytes # (Manual) Monocytes # (Manual) PT INR APTT D-Dimer Heparin Anti-Xa Level ABG pH POC ABG pCO2 POC ABG pO2 ABG pO2 ABG HCO3 ABG O2 Saturation ABG Base Excess ABG Hemoglobin ABG Oxyhemoglobin ABG Sodium ABG Potassium ABG Glucose Oxyhemoglobin Carboxyhemoglobin Sodium Potassium Chloride Carbon Dioxide BUN Creatinine 0.3 L Glucose 163 H POC Glucose 154 H 164 H Lactic Acid Calcium Phosphorus Magnesium Ferritin Lactate Dehydrogenase C-Reactive Protein NT-Pro-B Natriuret Pep Total Protein Albumin Triglycerides Arterial Blood Glucose Urine pH Ur Specific [place] Coronavirus (PCR) 04/19/21 04/19/21 04/19/21 15:55 21:00 23:13 WBC RBC Hgb Hct MCV MCHC RDW Plt Count Lymph % (Auto) [place] % (Auto) Lymph # (Auto) [place] # (Auto) Seg Neutrophils % Seg Neuts % (Manual) Lymphocytes % (Manual) Monocytes % (Manual) Nucleated RBC % Seg Neutrophils # Seg Neutrophils # Man Lymphocytes # (Manual) Monocytes # (Manual) PT INR APTT D-Dimer Heparin Anti-Xa Level ABG pH POC ABG pCO2 POC ABG pO2 ABG pO2 ABG HCO3 ABG O2 Saturation ABG Base Excess ABG Hemoglobin ABG Oxyhemoglobin ABG Sodium ABG Potassium ABG Glucose Oxyhemoglobin Carboxyhemoglobin Sodium Potassium Chloride Carbon Dioxide BUN Creatinine Glucose POC Glucose 138 H 151 H 147 H Lactic Acid Calcium Phosphorus Magnesium Ferritin Lactate Dehydrogenase C-Reactive Protein NT-Pro-B Natriuret Pep Total Protein Albumin Triglycerides Arterial Blood Glucose Urine pH Ur Specific [place] Coronavirus (PCR) 04/20/21 04/20/21 04/20/21 04:17 04:17 05:15 WBC 13.1 H RBC 2.94 L Hgb 8.8 L Hct 26.8 L MCV MCHC RDW 16.2 H Plt Count Lymph % (Auto) [place] % (Auto) Lymph # (Auto) [place] # (Auto) Seg Neutrophils % Seg Neuts % (Manual) Lymphocytes % (Manual) Monocytes % (Manual) Nucleated RBC % Seg Neutrophils # Seg Neutrophils # Man Lymphocytes # (Manual) Monocytes # (Manual) PT INR APTT D-Dimer Heparin Anti-Xa Level ABG pH POC ABG pCO2 POC ABG pO2 ABG pO2 ABG HCO3 ABG O2 Saturation ABG Base Excess ABG Hemoglobin ABG Oxyhemoglobin ABG Sodium ABG Potassium ABG Glucose Oxyhemoglobin Carboxyhemoglobin Sodium 135 L Potassium Chloride Carbon Dioxide BUN Creatinine 0.3 L Glucose 151 H POC Glucose 126 H Lactic Acid Calcium 8.3 L Phosphorus Magnesium Ferritin Lactate Dehydrogenase C-Reactive Protein NT-Pro-B Natriuret Pep Total Protein Albumin Triglycerides Arterial Blood Glucose Urine pH Ur Specific [place] Coronavirus (PCR) 04/20/21 04/20/21 04/20/21 11:03 16:01 23:54 WBC RBC Hgb Hct MCV MCHC RDW Plt Count Lymph % (Auto) [place] % (Auto) Lymph # (Auto) [place] # (Auto) Seg Neutrophils % Seg Neuts % (Manual) Lymphocytes % (Manual) Monocytes % (Manual) Nucleated RBC % Seg Neutrophils # Seg Neutrophils # Man Lymphocytes # (Manual) Monocytes # (Manual) PT INR APTT D-Dimer Heparin Anti-Xa Level ABG pH POC ABG pCO2 POC ABG pO2 ABG pO2 ABG HCO3 ABG O2 Saturation ABG Base Excess ABG Hemoglobin ABG Oxyhemoglobin ABG Sodium ABG Potassium ABG Glucose Oxyhemoglobin Carboxyhemoglobin Sodium Potassium Chloride Carbon Dioxide BUN Creatinine Glucose POC Glucose 154 H 152 H 145 H Lactic Acid Calcium Phosphorus Magnesium Ferritin Lactate Dehydrogenase C-Reactive Protein NT-Pro-B Natriuret Pep Total Protein Albumin Triglycerides Arterial Blood Glucose Urine pH Ur Specific [place] Coronavirus (PCR) 04/21/21 04/21/21 04/21/21 04:39 11:20 11:37 WBC RBC Hgb Hct MCV MCHC RDW Plt Count Lymph % (Auto) [place] % (Auto) Lymph # (Auto) [place] # (Auto) Seg Neutrophils % Seg Neuts % (Manual) Lymphocytes % (Manual) Monocytes % (Manual) Nucleated RBC % Seg Neutrophils # Seg Neutrophils # Man Lymphocytes # (Manual) Monocytes # (Manual) PT INR APTT D-Dimer Heparin Anti-Xa Level ABG pH 7.503 H POC ABG pCO2 POC ABG pO2 ABG pO2 ABG HCO3 ABG O2 Saturation ABG Base Excess ABG Hemoglobin 10.8 L ABG Oxyhemoglobin ABG Sodium ABG Potassium ABG Glucose Oxyhemoglobin Carboxyhemoglobin 0.1 L Sodium Potassium Chloride Carbon Dioxide BUN Creatinine 0.3 L Glucose 174 H POC Glucose 147 H Lactic Acid Calcium Phosphorus Magnesium Ferritin Lactate Dehydrogenase C-Reactive Protein NT-Pro-B Natriuret Pep Total Protein Albumin Triglycerides Arterial Blood Glucose Urine pH Ur Specific [place] Coronavirus (PCR) 04/21/21 04/21/21 04/21/21 11:48 12:11 17:56 WBC 14.5 H RBC 3.08 L Hgb 9.3 L Hct 28.2 L MCV MCHC RDW 16.5 H Plt Count Lymph % (Auto) [place] % (Auto) Lymph # (Auto) [place] # (Auto) Seg Neutrophils % Seg Neuts % (Manual) Lymphocytes % (Manual) Monocytes % (Manual) Nucleated RBC % Seg Neutrophils # Seg Neutrophils # Man Lymphocytes # (Manual) Monocytes # (Manual) PT INR APTT D-Dimer Heparin Anti-Xa Level ABG pH POC ABG pCO2 POC ABG pO2 ABG pO2 ABG HCO3 ABG O2 Saturation ABG Base Excess ABG Hemoglobin ABG Oxyhemoglobin ABG Sodium ABG Potassium ABG Glucose Oxyhemoglobin Carboxyhemoglobin Sodium Potassium Chloride Carbon Dioxide BUN Creatinine Glucose POC Glucose 154 H 138 H Lactic Acid Calcium Phosphorus Magnesium Ferritin Lactate Dehydrogenase C-Reactive Protein NT-Pro-B Natriuret Pep Total Protein Albumin Triglycerides Arterial Blood Glucose Urine pH Ur Specific [place] Coronavirus (PCR) 04/21/21 04/22/21 04/22/21 23:31 04:30 04:30 WBC 12.3 H RBC 3.20 L Hgb 9.5 L Hct 29.3 L MCV MCHC RDW 16.6 H Plt Count Lymph % (Auto) [place] % (Auto) Lymph # (Auto) [place] # (Auto) Seg Neutrophils % Seg Neuts % (Manual) Lymphocytes % (Manual) Monocytes % (Manual) Nucleated RBC % Seg Neutrophils # Seg Neutrophils # Man Lymphocytes # (Manual) Monocytes # (Manual) PT INR APTT D-Dimer Heparin Anti-Xa Level ABG pH POC ABG pCO2 POC ABG pO2 ABG pO2 ABG HCO3 ABG O2 Saturation ABG Base Excess ABG Hemoglobin ABG Oxyhemoglobin ABG Sodium ABG Potassium ABG Glucose Oxyhemoglobin Carboxyhemoglobin Sodium Potassium Chloride Carbon Dioxide BUN Creatinine 0.3 L Glucose 125 H POC Glucose 162 H Lactic Acid Calcium Phosphorus Magnesium Ferritin Lactate Dehydrogenase C-Reactive Protein NT-Pro-B Natriuret Pep Total Protein Albumin Triglycerides Arterial Blood Glucose Urine pH Ur Specific [place] Coronavirus (PCR) 04/22/21 04/22/21 04/22/21 05:17 12:03 17:22 WBC RBC Hgb Hct MCV MCHC RDW Plt Count Lymph % (Auto) [place] % (Auto) Lymph # (Auto) [place] # (Auto) Seg Neutrophils % Seg Neuts % (Manual) Lymphocytes % (Manual) Monocytes % (Manual) Nucleated RBC % Seg Neutrophils # Seg Neutrophils # Man Lymphocytes # (Manual) Monocytes # (Manual) PT INR APTT D-Dimer Heparin Anti-Xa Level ABG pH POC ABG pCO2 POC ABG pO2 ABG pO2 ABG HCO3 ABG O2 Saturation ABG Base Excess ABG Hemoglobin ABG Oxyhemoglobin ABG Sodium ABG Potassium ABG Glucose Oxyhemoglobin Carboxyhemoglobin Sodium Potassium Chloride Carbon Dioxide BUN Creatinine Glucose POC Glucose 112 H 156 H 133 H Lactic Acid Calcium Phosphorus Magnesium Ferritin Lactate Dehydrogenase C-Reactive Protein NT-Pro-B Natriuret Pep Total Protein Albumin Triglycerides Arterial Blood Glucose Urine pH Ur Specific [place] Coronavirus (PCR) 04/23/21 04/23/21 04/23/21 00:58 05:08 12:59 WBC RBC Hgb Hct MCV MCHC RDW Plt Count Lymph % (Auto) [place] % (Auto) Lymph # (Auto) [place] # (Auto) Seg Neutrophils % Seg Neuts % (Manual) Lymphocytes % (Manual) Monocytes % (Manual) Nucleated RBC % Seg Neutrophils # Seg Neutrophils # Man Lymphocytes # (Manual) Monocytes # (Manual) PT INR APTT D-Dimer Heparin Anti-Xa Level ABG pH POC ABG pCO2 POC ABG pO2 ABG pO2 ABG HCO3 ABG O2 Saturation ABG Base Excess ABG Hemoglobin ABG Oxyhemoglobin ABG Sodium ABG Potassium ABG Glucose Oxyhemoglobin Carboxyhemoglobin Sodium Potassium Chloride Carbon Dioxide BUN Creatinine Glucose POC Glucose 133 H 156 H 139 H Lactic Acid Calcium Phosphorus Magnesium Ferritin Lactate Dehydrogenase C-Reactive Protein NT-Pro-B Natriuret Pep Total Protein Albumin Triglycerides Arterial Blood Glucose Urine pH Ur Specific [place] Coronavirus (PCR) Allied health notes reviewed: nursing
[2021-04-23] MEDS: oxyCODONE 5 MG TAB PO PRN (22:49)
[2021-04-24] MEDS: INSULIN LISPRO 100 UNIT/ML SUB-Q SCH ×4 (00:23→18:30)
[2021-04-24] MEDS: ACETAMINOPHEN 325 MG TAB PO PRN ×2 (00:28→15:07)
[2021-04-24] MEDS: hydrALAZINE 25 MG TAB PO SCH ×3 (06:31→22:16)
[2021-04-24] MEDS: ARFORMOTEROL 15 MCG/2 ML NEBU IH SCH ×2 (07:19→22:25)
--- NOTE | 2021-04-24 09:26 | Progress Note ---
Hospitalist Physical - Constitutional Vitals: Temp Pulse Resp BP Pulse Ox 99.3 F 114 H 16 146/79 99 04/24/21 07:23 04/24/21 07:19 04/24/21 07:19 04/24/21 07:01 04/24/21 07:23 General appearance: Present: no acute distress, well-nourished, obese, other (Unresponsive) Results - Labs CBC & Chem 7: 04/22/21 04:30 04/22/21 04:30 Labs: Laboratory Last Values WBC 12.3 K/mm3 (4.5-11.0) H 04/22/21 04:30 RBC 3.20 M/mm3 (3.65-5.03) L 04/22/21 04:30 Hgb 9.5 gm/dl (11.8-15.2) L 04/22/21 04:30 Hct 29.3 % (35.5-45.6) L 04/22/21 04:30 MCV 92 fl (84-94) 04/22/21 04:30 MCH 30 pg (28-32) 04/22/21 04:30 MCHC 32 % (32-34) 04/22/21 04:30 RDW 16.6 % (13.2-15.2) H 04/22/21 04:30 Plt Count 418 K/mm3 (140-440) 04/22/21 04:30 Lymph % (Auto) 7.6 % (13.4-35.0) L 03/31/21 13:30 [place] % (Auto) 9.5 % (0.0-7.3) H 03/31/21 13:30 Eos % (Auto) 4.1 % (0.0-4.3) 03/31/21 13:30 Baso % (Auto) 0.5 % (0.0-1.8) 03/31/21 13:30 Lymph # (Auto) 0.6 K/mm3 (1.2-5.4) L 03/31/21 13:30 [place] # (Auto) 0.7 K/mm3 (0.0-0.8) 03/31/21 13:30 Eos # (Auto) 0.3 K/mm3 (0.0-0.4) 03/31/21 13:30 Baso # (Auto) 0.0 K/mm3 (0.0-0.1) 03/31/21 13:30 Add Manual Diff Complete 04/11/21 06:47 Total Counted 100 04/11/21 06:47 Seg Neutrophils % 78.3 % (40.0-70.0) H 03/31/21 13:30 Seg Neuts % (Manual) 76.0 % (40.0-70.0) H 04/11/21 06:47 Band Neutrophils % 2.0 % 04/11/21 06:47 Lymphocytes % (Manual) 10.0 % (13.4-35.0) L 04/11/21 06:47 Reactive Lymphs % (Man) 0 % 04/11/21 06:47 Monocytes % (Manual) 7.0 % (0.0-7.3) 04/11/21 06:47 Eosinophils % (Manual) 4.0 % (0.0-4.3) 04/11/21 06:47 Basophils % (Manual) 0 % (0.0-1.8) 04/11/21 06:47 Metamyelocytes % 1.0 % 04/11/21 06:47 Myelocytes % 0 % 04/11/21 06:47 Promyelocytes % 0 % 04/11/21 06:47 Blast Cells % 0 % 04/11/21 06:47 Nucleated RBC % Not Reportable 04/11/21 06:47 Seg Neutrophils # 5.8 K/mm3 (1.8-7.7) 03/31/21 13:30 Seg Neutrophils # Man 8.3 K/mm3 (1.8-7.7) H 04/11/21 06:47 Band Neutrophils # 0.2 K/mm3 04/11/21 06:47 Lymphocytes # (Manual) 1.1 K/mm3 (1.2-5.4) L 04/11/21 06:47 Abs React Lymphs (Man) 0.0 K/mm3 04/11/21 06:47 Monocytes # (Manual) 0.8 K/mm3 (0.0-0.8) 04/11/21 06:47 Eosinophils # (Manual) 0.4 K/mm3 (0.0-0.4) 04/11/21 06:47 Basophils # (Manual) 0.0 K/mm3 (0.0-0.1) 04/11/21 06:47 Metamyelocytes # 0.1 K/mm3 04/11/21 06:47 Myelocytes # 0.0 K/mm3 04/11/21 06:47 Promyelocytes # 0.0 K/mm3 04/11/21 06:47 Blast Cells # 0.0 K/mm3 04/11/21 06:47 WBC Morphology Not Reportable 04/11/21 06:47 Hypersegmented Neuts Not Reportable 04/11/21 06:47 Hyposegmented Neuts Not Reportable 04/11/21 06:47 Hypogranular Neuts Not Reportable 04/11/21 06:47 Smudge Cells Not Reportable 04/11/21 06:47 Toxic Granulation 1+ 04/11/21 06:47 Toxic Vacuolation Not Reportable 04/11/21 06:47 Dohle Bodies Not Reportable 04/11/21 06:47 Pelger-Huet Anomaly Not Reportable 04/11/21 06:47 Mely Rods Not Reportable 04/11/21 06:47 Platelet Estimate Consistent w auto 04/11/21 06:47 Clumped Platelets Not Reportable 04/11/21 06:47 Plt Clumps, EDTA Not Reportable 04/11/21 06:47 Large Platelets Not Reportable 04/11/21 06:47 Giant Platelets Not Reportable 04/11/21 06:47 Platelet Satelliting Not Reportable 04/11/21 06:47 Plt Morphology Comment Not Reportable 04/11/21 06:47 RBC Morphology Not Reportable 04/11/21 06:47 Dimorphic RBCs Not Reportable 04/11/21 06:47 Polychromasia Not Reportable 04/11/21 06:47 Hypochromasia Not Reportable 04/11/21 06:47 Poikilocytosis Not Reportable 04/11/21 06:47 Anisocytosis 1+ 04/11/21 06:47 Microcytosis Not Reportable 04/11/21 06:47 Macrocytosis Not Reportable 04/11/21 06:47 Spherocytes Not Reportable 04/11/21 06:47 Pappenheimer Bodies Not Reportable 04/11/21 06:47 Sickle Cells Not Reportable 04/11/21 06:47 Target Cells Not Reportable 04/11/21 06:47 Tear Drop Cells Not Reportable 04/11/21 06:47 Ovalocytes Not Reportable 04/11/21 06:47 Helmet Cells Not Reportable 04/11/21 06:47 [place] Bodies Not Reportable 04/11/21 06:47 [place] Rings Not Reportable 04/11/21 06:47 Shama Cells Not Reportable 04/11/21 06:47 Bite Cells Not Reportable 04/11/21 06:47 Crenated Cell Not Reportable 04/11/21 06:47 Elliptocytes Not Reportable 04/11/21 06:47 Acanthocytes (Spur) Not Reportable 04/11/21 06:47 Rouleaux Not Reportable 04/11/21 06:47 Hemoglobin C Crystals Not Reportable 04/11/21 06:47 Schistocytes Not Reportable 04/11/21 06:47 Malaria parasites Not Reportable 04/11/21 06:47 [place] Bodies Not Reportable 04/11/21 06:47 Hem Pathologist Commnt No 04/11/21 06:47 PT 13.4 Sec. (12.2-14.9) 04/11/21 18:17 INR 0.92 (0.87-1.13) 04/11/21 18:17 APTT 61.1 Sec. (24.2-36.6) H* 04/11/21 18:17 D-Dimer 1359.12 ng/mlDDU (0-234) H 03/17/21 04:40 Heparin Anti-Xa Level 1.03 U.I./ml (0.3-0.7) H 04/12/21 05:11 ABG pH 7.503 (7.320-7.450) H 04/21/21 11:37 POC ABG pCO2 43.0 mmHg (32.0-48.0) 04/21/21 11:37 ABG pCO2 50.9 mm Hg 04/18/21 11:30 POC ABG pO2 92.3 mmHg (83-108) 04/21/21 11:37 ABG pO2 108.9 mm Hg (80.0-90.0) H 04/18/21 11:30 POC ABG HCO3 33.0 04/21/21 11:37 ABG HCO3 36.2 mmol/L (20.0-26.0) H 04/18/21 11:30 ABG O2 Saturation 98.2 (0-100) 04/21/21 11:37 ABG O2 Content 12.1 (0.0-44) 04/18/21 11:30 POC ABG Base Excess 9.0 04/21/21 11:37 ABG Base Excess 11.2 mmol/L (-2.0-3.0) H 04/18/21 11:30 ABG Hemoglobin 10.8 (12.0-17.5) L 04/21/21 11:37 ABG Oxyhemoglobin 97.8 (94-98) 04/21/21 11:37 ABG Carboxyhemoglobin 1.7 % (0.0-5.0) 04/18/21 11:30 ABG Methemoglobin 0.3 (0.0-1.5) 04/21/21 11:37 ABG Sodium 134.2 mmol/L (136.0-145.0) L 03/12/21 21:54 ABG Potassium 4.9 mmol/L (3.40-4.50) H 03/12/21 21:54 ABG Chloride 99.0 mmol/L (98-107) 03/12/21 21:54 ABG Glucose 306 mg/dL (65-95) H 03/12/21 21:54 Oxyhemoglobin 95.9 % (95.0-99.0) 04/18/21 11:30 Carboxyhemoglobin 0.1 (0.5-1.5) L 04/21/21 11:37 FiO2 40 % 04/18/21 11:30 FiO2 % 35.0 04/21/21 11:37 Sodium 139 mmol/L (137-145) 04/22/21 04:30 Potassium 3.8 mmol/L (3.6-5.0) 04/22/21 04:30 Chloride 103.1 mmol/L (98-107) 04/22/21 04:30 Carbon Dioxide 25 mmol/L (22-30) 04/22/21 04:30 Anion Gap 15 mmol/L 04/22/21 04:30 BUN 15 mg/dL (9-20) 04/22/21 04:30 Creatinine 0.3 mg/dL (0.8-1.3) L 04/22/21 04:30 Estimated GFR > 60 ml/min 04/22/21 04:30 BUN/Creatinine Ratio 50 % 04/22/21 04:30 Glucose 125 mg/dL (75-100) H 04/22/21 04:30 POC Glucose 135 mg/dL (70-105) H 04/24/21 05:15 Lactic Acid 1.90 mmol/L (0.7-2.0) 03/08/21 23:51 Calcium 9.0 mg/dL (8.4-10.2) 04/22/21 04:30 Phosphorus 3.60 mg/dL (2.5-4.5) 04/17/21 04:25 Magnesium 2.30 mg/dL (1.7-2.3) 04/19/21 04:26 Ferritin 976.4 ng/mL (30.0-300.0) H 03/15/21 04:00 Total Bilirubin 0.20 mg/dL (0.1-1.2) 03/12/21 08:03 AST 10 units/L (5-40) 03/12/21 08:03 ALT 16 units/L (7-56) 03/12/21 08:03 Alkaline Phosphatase 77 units/L (35-129) 03/12/21 08:03 Lactate Dehydrogenase 630 units/L (91-180) H 03/15/21 06:06 C-Reactive Protein 0.40 mg/dL (0.00-1.30) 03/17/21 04:40 NT-Pro-B Natriuret Pep 1053 pg/mL (0-900) H 03/08/21 20:24 Total Protein 6.0 g/dL (6.3-8.2) L 03/12/21 08:03 Albumin 2.9 g/dL (3.9-5) L 03/12/21 08:03 Albumin/Globulin Ratio 0.9 % 03/12/21 08:03 Triglycerides 305 mg/dL (2-149) H 03/22/21 07:26 Procalcitonin 0.19 ng/mL (<0.15) 04/18/21 04:20 Arterial Blood Glucose 306 mg/dL (65-95) H 03/12/21 21:54 Arterial Blood Ionized Calcium 5.0 mg/dL (4.6-5.3) 03/12/21 21:54 Urine Color Yellow (Yellow) 04/14/21 Unknown Urine Turbidity Clear (Clear) 04/14/21 Unknown Urine pH 8.0 (5.0-7.0) H 04/14/21 Unknown Ur Specific [place] 1.009 (1.003-1.030) 04/14/21 Unknown Urine Protein <15 mg/dl mg/dL (Negative) 04/14/21 Unknown Urine Glucose (UA) Neg mg/dL (Negative) 04/14/21 Unknown Urine Ketones Neg mg/dL (Negative) 04/14/21 Unknown Urine Blood Neg (Negative) 04/14/21 Unknown Urine Nitrite Neg (Negative) 04/14/21 Unknown Urine Bilirubin Neg (Negative) 04/14/21 Unknown Urine Urobilinogen 2.0 mg/dL (<2.0) 04/14/21 Unknown Ur Leukocyte Esterase Neg (Negative) 04/14/21 Unknown Urine WBC (Auto) < 1.0 /HPF (0.0-6.0) 04/14/21 Unknown Urine RBC (Auto) < 1.0 /HPF (0.0-6.0) 04/14/21 Unknown Urine Bacteria (Auto) 1+ /HPF (Negative) 03/09/21 04:10 Urine Mucus Few /HPF 03/09/21 04:10 Vancomycin Trough 16.8 ug/mL (5.0-20.0) 04/16/21 14:30 Coronavirus (PCR) Positive (Negative) A 03/09/21 08:00 Miscellaneous Test Flexitest 1 03/16/21 13:14 Good/IV: Voiding Method Indwelling Catheter Active Medications - Current Medications Current Medications: Generic Name Dose Route Start Last Admin Trade Name Freq PRN Reason Stop Dose Admin Acetaminophen 650 mg 03/09/21 01:26 04/24/21 00:28 Acetaminophen 325 Mg Tab PO 650 mg Q4H PRN Administration Pain MILD(1-3)/Fever >100.5/RAYO Albuterol 2.5 mg 03/09/21 01:26 03/18/21 21:06 Albuterol 2.5 Mg/3 Ml Nebu IH 2.5 mg Q4HRT PRN Administration Shortness Of Breath Amlodipine Besylate 10 mg 04/11/21 10:00 04/23/21 10:35 Amlodipine 5 Mg Tab PO 10 mg QDAY BLANCA Administration Apixaban 5 mg 04/18/21 22:00 04/23/21 22:46 Apixaban 5 Mg Tab PO 5 mg Q12HR BLANCA Administration Protocol Arformoterol Tartrate 15 mcg 03/11/21 20:00 04/24/21 07:19 Arformoterol 15 Mcg/2 Ml Nebu IH 15 mcg Q12HRT BLANCA Administration Dextrose 0 ml 03/20/21 10:52 Dextrose 10% *Hypoglycemia IV PRN PRN Hypoglycemia Docusate Sodium 100 mg 04/23/21 10:00 04/23/21 22:46 Docusate Sodium 100 Mg/10 Ml Oral Liqd PO 100 mg BID BLANCA Administration Doxazosin Mesylate 1 mg 04/05/21 22:00 04/23/21 22:49 Doxazosin 1 Mg Tab PO 1 mg BID BLANCA Administration Famotidine 20 mg 03/12/21 22:00 04/23/21 22:48 Famotidine 20 Mg Tab FEEDTUBE 20 mg BID BLANCA Administration Glycopyrrolate 2 mg 04/22/21 23:42 04/23/21 19:38 Glycopyrrolate 2 Mg Tab PO 2 mg TID BLANCA Administration Hydralazine HCl 50 mg 03/23/21 14:26 04/24/21 06:31 Hydralazine 25 Mg Tab PO 50 mg Q8HR BLANCA Administration Cefazolin Sodium 3 gm/ Sodium 100 mls @ 100 mls/30 min 04/20/21 14:00 04/24/21 06:30 Chloride IV 100 mls/30 min Q8HR [facility] Administration Protocol Insulin Glargine 18 units 04/07/21 22:00 04/23/21 22:47 Insulin Glargine 100 Units/Ml SUB-Q 18 units QHS BLANCA Administration Insulin Human Lispro 0 unit 03/11/21 18:00 04/24/21 07:33 Insulin Lispro 100 Unit/Ml SUB-Q Not Given Q6HR [facility] Protocol Metoprolol Tartrate 12.5 mg 03/21/21 22:00 04/23/21 22:46 Metoprolol Tartrate 25 Mg Tab PO 12.5 mg BID BLANCA Administration Ondansetron HCl 4 mg 03/09/21 01:26 04/13/21 16:17 Ondansetron 4 Mg/2 Ml Inj IV 4 mg Q8H PRN Administration Nausea And Vomiting Oxycodone HCl 5 mg 04/13/21 12:34 04/23/21 22:49 Oxycodone 5 Mg Tab PO 5 mg Q6HR PRN Administration Pain, Moderate (4-6) Phenyleph/Shark Oil/Min Oil/Petrol 1 applic 03/22/21 17:35 04/06/21 04:04 Pe/Mo/Pet,Wh 10 Applic/28 Gm Tube AR 1 applic Q6HR PRN Administration Hemorrhoids Scopolamine 1 each 04/19/21 13:00 04/22/21 09:49 Scopolamine Transdermal Patch 72 Hr TD 1 each Q3D BLANCA Administration Sodium Chloride 10 ml 03/09/21 10:00 04/23/21 22:48 Sodium Chloride 0.9% 10 Ml Flush Syringe IV 10 ml BID BLANCA Administration Sodium Chloride 10 ml 03/09/21 01:26 04/10/21 21:07 Sodium Chloride 0.9% 10 Ml Flush Syringe IV 10 ml PRN PRN Administration LINE FLUSH Nutrition/Malnutrition Assess - Dietary Evaluation Nutrition/Malnutrition Findings: Nutrition Notes Start: 03/09/21 08:49 Freq: Status: Active Protocol: Document 04/21/21 14:27 [facility] (Rec: 04/21/21 14:29 [facility] [id number]) Nutrition Notes Initial or Follow up Reassessment Current Diagnosis Diabetes,Sepsis,Hypertension, Respiratory Failure Other Pertinent Diagnosis COVID-19, Bilateral Pneumonia. Current Diet TF-Glucerna 1.2 at 70 ml/hr Labs/Tests reviewed Pertinent Medications Lasix Height 5 ft 11 in Weight 122.4 kg [place] Body Weight (kg) 78.18 BMI 37.6 Weight Status Obese Subjective/Other Information Pt tolerating T-piece trials for past two days. Per RN, will move to [facility]. Pt continues to tolerate TF at goal rate. Percent of energy/protein needs met: 82% energy 78% pro Burn Absent Trauma Absent #1 Nutrition Diagnosis Inadequate oral intake Diagnosis Progress(for reassessment Continues documentation) Is patient on ventilator? No Is Patient Ambulatory and/or Out of Bed No REE-([facility]-confined to bed) [phone] Calculation Used for Recommendations 70-80% energy needs Additional Notes Energy needs: 1923-4504 kcal/ day Pro needs 1.3g/kg adjBW: 130g/ day Fluid needs 1ml/kcal Nutrition Intervention Nutrition Support: Continue Glucerna 1.2 at 70ml/ hr with 110ml water flush q4h. Kcal 2,016 Protein (gm) 101 Carbohydrates (gm) 192 Fat (gm) 101 Fluid (mL) 1,352 Fiber (gm) 27 Goal #1 TF tolerance Goal #2 TF to meet at least 75% energy and pro needs Follow-Up By: 04/28/21 Additional Comments F/U: stable TF, wt, resp status
[2021-04-24] MEDS: oxyCODONE 5 MG TAB PO PRN (10:14)
[2021-04-24] MEDS: amLODIPine 5 MG TAB PO SCH (10:14)
[2021-04-24] MEDS: FAMOTIDINE 20 MG TAB FEEDTUBE SCH ×2 (10:14→22:17)
[2021-04-24] MEDS: GLYCOPYRROLATE 2 MG TAB PO SCH ×3 (10:14→22:17)
[2021-04-24] MEDS: DOCUSATE SODIUM 100 MG/10 ML ORAL LIQD PO SCH ×2 (10:14→22:16)
[2021-04-24] MEDS: APIXABAN 5 MG TAB PO SCH ×2 (10:14→22:16)
[2021-04-24] MEDS: METOPROLOL TARTRATE 25 MG TAB PO SCH ×2 (10:15→22:16)
[2021-04-24] MEDS: DOXAZOSIN 1 MG TAB PO SCH ×2 (10:15→22:16)
[2021-04-24 10:54] LABS: Hematocrit 30.1 % (35.5-45.6); Hemoglobin 10.2 gm/dl (11.8-15.2); Mean Corpuscular HGB Conc 34 % (32-34); Mean Corpuscular Volume 90 fl (84-94); Platelet Count 393 K/mm3 (140-440); Red Blood Count 3.33 M/mm3 (3.65-5.03); Red Cell Distribution Width 16.6 % (13.2-15.2)
[2021-04-24 11:12] LABS: Blood Urea Nitrogen 14 mg/dL (9-20); Calcium 9.4 mg/dL (8.4-10.2); Hemolysis Index 6
[2021-04-24 11:13] LABS: BUN/Creatinine Ratio 35
--- NOTE | 2021-04-24 11:28 | Progress Note ---
Assessment and Plan Assessment and plan: This is a 61-year-old male with past medical history of HTN and DM admitted for sepsis and acute hypoxic respiratory failure 2/2 COVID pneumonia s/p Trach and PEG on 2/ Hospital Course to Date: 03/09: The patient was seen and evaluated today, and he was found to be hemodynamically stable. The patient is currently on BiPAP for possible COVID-19 pneumonia. He was started on Lovenox 1mg/kg for DVT ppx in the setting of d- dimer > 10,000. Infectious Disease was consulted. The patient is pending a TTE. 03/10: No acute events overnight, patient was intubated in the afternoon transferred to ICU 03/11: Patient started on Lantus, free water flushes increased, propofol drip res umed and oral antihypertensive added. 03/12: lantus increased, k at 5, will monitor. I updated his family and his stated that he is not vaccinated. He does have HTN and she will call the RN to update home medications. She did say he takes bystolic and amlopine. She inquired about ventilator and lab work. She had no further questions. 03/13: KVNG overnight. Patient remains hyperglycemic, basal insulin adjusted and increased to Q12hrs. Patient is overall net positive since admit X1 dose of IV lasix, repeat BMP this afternoon. 03/14: Failed SAT this am due to increase agitation, tachycardia and hypertension. Remains on propofol and fentanyl gtt. Hyperkalemia treated with PO kayaxalate. Patient responded to IV lasix yesterday additional dose again today for a net negative balance. Repeat BMP this afternoon. Insulin adjusted for hyperglycemia. 03/15: Remains encephalopathic, not following commansd. Orders placed for CT head/Brain and Neuro consulted. Rectal bleeding subsided, most likely due to hemorrhoids. H&H is stable will continue to monitor. Kayaxexalate for high K, repeat labs 4 to 6hrs post treatment. 03/16: Still agiated this am, CT head with no acute Abn. CXR and ABG noted- evolving pna and worsening hypoxia, now with low grade fevers. Sputum culture ordered, IV Abx added, ID on cosult. 03/17: This am ABG noted, hypoxia improved. Continue to wean FiO2 as tolerated. Still with low grade fevers, on IV Abx per ID. Still with periods of confusion despite sedation, seroquel increased. F/u CXR in the am 03/18: still very agitated especially when off sedation, with hypertension and tachycardia. Continue sedation for RASS -2, PRN antihypertensive for SPB greater than 160. This febrile this am, continue current IV abx per ID 03/19: Patient afebrile overnight, continue IV Abx per ID. ABG also improved this am, continue to wean FIO2 as tolerated. PRN antihypertensive for hypertension. 03/20: Hyperkalemia treated with Kayexalate, Good discontinued, vancomycin and cefepime stopped started Bactrim by ID. Steroid taper started. 03/21: BB started for hypertension, Seroquel increased for agitation and Librium started no acute events reported overnight. [facility] made vent changes 03/22: Adjustment to anxiolytics, respiratory rate on ventilator per [facility]. Patient noted to have bleeding hemorrhoids with clot, requested RN to remove bowel management system and will order Preparation H. 03/23: Given no confirmed DVT or PE (only superficial thrombus noted on Dopplers) therapeutic Lovenox changed to prophylactic Lovenox. Started on doxazosin to help with retention. Consulted surgery for tracheostomy and propofol discontinued. 03/24: Surgery consult completed, patient changed to prophylaxis anticoagulation, started on doxazosin yesterday with plans to remove Good catheter in 48 hours. Patient with slight hypokalemia today and given Kayexalate. No acute events reported overnight. 03/25: No acute events reported overnight. Patient remains on fentanyl drip and on CPAP trial this morning. 03/26: no acute events reported overnight. placed on CPAP this AM, remains on fent/librium. scheduled for trach/peg this week. 03/27: Hypoglycemic this am, will decreased lantus to Qhs. Plan for possible Trach and Peg by Gen Surg this am. Case management to arrange possible LTAC placement 03/28: KVNG overnight. Tolerating PST this am. Plan for trach and PEG tomorrow by Gen. Surgery, NPO after midnight. 03/29: No significant changes overnight. Plan for trach and Peg today. Case management to arrange possible LTAC placement 03/30. S/p Trach and PEG, no complications noted. High residual yesterday despite NPO status, reglan added X2 days. Per RN no residual this am, patient is tolerating TF. Continue to advance TF as tolerated. Norvasc added for hypertension. Pitting edema also appreciated, some diuretic might be beneficial, will d/w CCM. Continue daily PST as tolerated. 03/31: Patient remains on the vent still on fentanyl gtt with periods of agitation. PRN analgesia added, plan to start weaning off fentanyl gtt. Febrile this am, completed IV abx course. Will panculture for now, ID is also following. 04/01: Still febrile overnight, cultures result pending, continue IV ABx per ID. Failed PST this am. Continue daily PST and vent wean per [facility]. Case management to arrange possible placement. 04/02: KVNG overnight. Fevers improved overnight, continue to follow cultures data, IV ABx per ID. Continue daily PST and wean vent as per [facility].\ 04/03: Given low procalcitonin, unchanged CXR and cultures with no growth cefepime was discontinued by ID. LTAC evaluation ongoing. No acute events reported overnight. 04/04: IV Lasix stopped today, Seroquel taper started, fentanyl drip on hold and steroids stopped. Pressure support trial again today. 04/05: Patient had to be restarted on fentanyl drip therefore Seroquel was increased back to 250 twice daily and he was started on scheduled narcotics and efforts to wean fentanyl drip. Doxazosin was increased to twice daily as patient still had retention issues on doxazosin once a day. Patient was denied LTAC placement. CPAP trial today. 04/06: Right upper extremity ultrasound obtained due to edema which showed DVT. Patient started on heparin drip. Overnight patient had hypoxia, tachypnea, tachycardia, hypotension and FiO2 was increased to 100%. RT titrating as tolerated. Plan was to start T-piece trials today. Patient has been denied LTAC placement. 04/07: BLE dopplar, continue lasix per [facility], CXR in AM. Increase in fio2 overnight d/t desaturation. Wean FiO2 as tolerated. 04/08: Patient remains on 65% FiO2, s/p Lasix for 3 doses, hyperkalemia noted today and medically treated. [facility] plans to consult heme/onc once FiO2 decreased. Remains on heparin gtt 04/09: No acute events reported overnight, possible heme-onc consult on Saturday or Saturday regarding upper extremity DVT, wean FiO2 as tolerated. Repeat CT head on Monday 04/10: Patient mentation is unchanged, repeat CT head today. Remains on heparin gtt per protocol. Continue daily PST as tolerated. 04/11: Increased work of breathing and high RR overnight, vent FiO2 increased to 55%. Resolved this am, patient is tolerating PST, no acute distress noted. Wean Fio2 as tolerated for SPO2 above 92%, Follow up CXR and ABG in the am. Antihypertensive regimen adjusted for better BP control. 04/12: Patient with coarse lungs and increased secretion today. This am CXR noted with worsen infiltrate, 40 of Lasix given, repeat CXR in the am. Patient remains afebrile, complete IV Abx course, VSS. Transitioned to PO Eliquis overnight, continue to keep patient net negative for better lung compliance. Continue daily PST as tolerated. 04/13: Patient is off sedation this am. Remains unresponsive. Librium D/C and Seroquel was adjusted to Qhs, PRN analgesia for pain management. Patient responded well to IV lasix, this am CXR with some improvement, additional IV lasix ordered again today. high CO2 also noted from this am, ABG ordered. Patient is tolerating PST this am, SPO2 remains above 95%. Continue daily PST plan to get patient off the vent for possible SNF placemement 04/14: Patient mentation is unchanged despite reducing sedative agents. Will hold all scheduled sedatives agents for now, PRN analgesics for pain management and vent synchrony. Patient spike a temp this am, orders placed for cultures, IV abx per ID. Additional lasix today, F/u CXR in the am. Patient is tolerating PST this am. 04/15: Remains febrile overnight. Culture data pending, back on IV Abx per ID. Gentle fluid management with IV lasix. Keep patient at a net negative balance. Continue daily PST as tolerated. 04/16: Open eyes spontaneously this am, but still not following commands. MRI brain ordered. Continue to avoid any sedative agents. Patient continue to respon d very well to IV diuretic, continue gentle diurese X3days as tolerated. Continue daily PST as tolerated. Plan is get patient off the vent for possible SNF placement. Patient remains febrile this am, now cefepine and Vanc, continue IV abx per ID. 04/17: We will repeat procalcitonin per ID, MRI brain pending, SNF placement pending, [facility] plans to start T-piece trials in the morning and will discontinue Good catheter again. 04/18: Overnight patient to be straight cath x2 but did eventually have spo ntaneous urine output today and Good catheter was not replaced, patient had MRI brain today and was started on T-piece trials. He received Versed for sedation for MRI brain. 04/19: Good catheter was not replaced overnight patient is still voiding, placed on T-piece today, scopolamine and Robinul restarted. 04/20: Patient T-piece trial again today, will decrease bowel regimen in a.m. for entering T-piece for 24 hours obtain gas in the a.m. Cefazolin increased 04/21: Patient remained on trach collar throughout the day, will be transitioned to IMCU. Good catheter was replaced overnight due to retention. 04/22: Patient continues to tolerate Trach collar, still with volume overload will continue with diuresis, monitor electrolytes, aggressive pulmonary toliet, aspiration precautions 04/23: Patient remains on trach collar which he is tolerating. Remains on cefazolin, Cardura and Lasix. 04/24: KVNG overnight. Patient is AAO, following commands, and tolerating T-piece. Continue PT 5X/week. Pending SNF vs Subacute rehab placement, case management to arrange. Assessment and Plan #Acute Hypoxic Respiratory Failure #COVID Pneumonia - Intubated on 03/10 due to worsen hypoxia on BIPAP - 03/29 s/p Tracheostomy - T-piece- 28% and 7L - Pulmonary on consult - Continue Nebs per [facility] - Pulmonary hygiene - keep patient net negative for better lung compliance - Aspiration precaution HOB above 30 - Continue SPO2 monitoring for SPO2 goal above 92% #Sepsis #COVID Pneumonia #MSSA pneumonia -Infectious disease consulted, appreciate recommendations -S/p remdesivir for 5 days -S/p Actemra 03/10/2021 -f/u blood culture -Monitor WBC and temperature curve -s/p steroids -04/18 procal 0.19 -03/16 Fungitell and histoplasma negative -On high dose Cefazolin per ID #Acute Encephalopathy-improved - AAO, following commands - CT head/brain no acute Abn. - Repeat CT head and MRI brain noted - Avoid benzodiazepine to reduce the possibility of delirium - Prn analgesia for pain management - Maintenance of sleep-wake cycle - PT consulted, appreciate recommendations: PT recommends subacute rehab if patient does not qualify for LTAC #Hypertension - 03/09 Echocardiogram shows a mildly dilated ascending aorta, normal LV systolic function, mild concentric LVH, LVEF 60 to 65% - Continue current antihypertensive regimen - PRN Labetalol for SBP above 160 - Continue Blood pressure monitoring per protocol #Urinary retention - Good catheter removed 04/17 and replaced 04/21 - Continue Doxazosin BID - Strict intake and output - Avoid nephrotoxic medications; Renally dose medications - Monitor and replace electrolytes as needed - Trend BMP #Acute right upper extremity DVT - Bilateral lower extremity ultrasounds negative for DVT, superficial thrombus in left gastrocnemius vein - CTA chest shows no gross pulm embolism - bilateral upper extremity ultrasound shows DVT in right upper extremity - Continue PO Eliquis - SCDs to BLE while in bed - Transfuse hemoglobin less than 7 - Monitor for signs of bleeding #Endo:Type 2 DM - Continue high dose SSI Q6hrs - Lantus qHs - Avoid Hypoglycemia The high probability of a clinically significant, sudden or life threatening deterioration of the [Respiratory] system(s) required my full and direct attention, intervention and personal management. The aggregate critical care time was [60] minutes. This time is in addition to time spent performing reported procedures but includes the following: [x] Data Review and interpretation [x] Patient assessment and monitoring of vital signs [x] Documentation [x] Medication orders and management Disposition Plan: IMCU Total Time Spent with Patient (Minutes): 60 History Interval history: Patient seen and examined at the bedside. AAO, following commands. Tolerating T- piced at 28% & 7L. KVNG overnight Hospitalist Physical - Constitutional Vitals: Temp Pulse Resp BP Pulse Ox 99.7 F H 116 H 31 H 158/87 86 04/24/21 08:00 04/24/21 10:15 04/24/21 10:00 04/24/21 10:15 04/24/21 10:00 General appearance: Present: no acute distress, well-nourished, obese - EENT Eyes: Present: PERRL ENT: hearing intact - Neck Neck: Present: normal ROM - Respiratory Respiratory effort: normal Respiratory: bilateral: rhonchi - Cardiovascular Rhythm: regular Heart Sounds: Present: S1 & S2 - Extremities Extremities: no ischemia, pulses intact, pulses symmetrical Extremity abnormal: edema - Peripheral Assessment Generalized Edema Type: Non-pitting Edema Degree: 2+ Capillary Refill: < 3 seconds Skin Temperature: Warm Peripheral Pulses: within normal limits - Abdominal General gastrointestinal: soft, non-distended, normal bowel sounds - Integumentary Integumentary: Present: warm, dry - Psychiatric Psychiatric: appropriate mood/affect, cooperative - Neurologic Neurologic: moves all extremities - Allied Health Allied health notes reviewed: nursing, case management Results - Labs CBC & Chem 7: 04/24/21 04:00 04/24/21 04:00 Labs: Laboratory Last Values WBC 12.9 K/mm3 (4.5-11.0) H 04/24/21 04:00 RBC 3.33 M/mm3 (3.65-5.03) L 04/24/21 04:00 Hgb 10.2 gm/dl (11.8-15.2) L 04/24/21 04:00 Hct 30.1 % (35.5-45.6) L 04/24/21 04:00 MCV 90 fl (84-94) 04/24/21 04:00 MCH 31 pg (28-32) 04/24/21 04:00 MCHC 34 % (32-34) 04/24/21 04:00 RDW 16.6 % (13.2-15.2) H 04/24/21 04:00 Plt Count 393 K/mm3 (140-440) 04/24/21 04:00 Lymph % (Auto) 7.6 % (13.4-35.0) L 03/31/21 13:30 [place] % (Auto) 9.5 % (0.0-7.3) H 03/31/21 13:30 Eos % (Auto) 4.1 % (0.0-4.3) 03/31/21 13:30 Baso % (Auto) 0.5 % (0.0-1.8) 03/31/21 13:30 Lymph # (Auto) 0.6 K/mm3 (1.2-5.4) L 03/31/21 13:30 [place] # (Auto) 0.7 K/mm3 (0.0-0.8) 03/31/21 13:30 Eos # (Auto) 0.3 K/mm3 (0.0-0.4) 03/31/21 13:30 Baso # (Auto) 0.0 K/mm3 (0.0-0.1) 03/31/21 13:30 Add Manual Diff Complete 04/11/21 06:47 Total Counted 100 04/11/21 06:47 Seg Neutrophils % 78.3 % (40.0-70.0) H 03/31/21 13:30 Seg Neuts % (Manual) 76.0 % (40.0-70.0) H 04/11/21 06:47 Band Neutrophils % 2.0 % 04/11/21 06:47 Lymphocytes % (Manual) 10.0 % (13.4-35.0) L 04/11/21 06:47 Reactive Lymphs % (Man) 0 % 04/11/21 06:47 Monocytes % (Manual) 7.0 % (0.0-7.3) 04/11/21 06:47 Eosinophils % (Manual) 4.0 % (0.0-4.3) 04/11/21 06:47 Basophils % (Manual) 0 % (0.0-1.8) 04/11/21 06:47 Metamyelocytes % 1.0 % 04/11/21 06:47 Myelocytes % 0 % 04/11/21 06:47 Promyelocytes % 0 % 04/11/21 06:47 Blast Cells % 0 % 04/11/21 06:47 Nucleated RBC % Not Reportable 04/11/21 06:47 Seg Neutrophils # 5.8 K/mm3 (1.8-7.7) 03/31/21 13:30 Seg Neutrophils # Man 8.3 K/mm3 (1.8-7.7) H 04/11/21 06:47 Band Neutrophils # 0.2 K/mm3 04/11/21 06:47 Lymphocytes # (Manual) 1.1 K/mm3 (1.2-5.4) L 04/11/21 06:47 Abs React Lymphs (Man) 0.0 K/mm3 04/11/21 06:47 Monocytes # (Manual) 0.8 K/mm3 (0.0-0.8) 04/11/21 06:47 Eosinophils # (Manual) 0.4 K/mm3 (0.0-0.4) 04/11/21 06:47 Basophils # (Manual) 0.0 K/mm3 (0.0-0.1) 04/11/21 06:47 Metamyelocytes # 0.1 K/mm3 04/11/21 06:47 Myelocytes # 0.0 K/mm3 04/11/21 06:47 Promyelocytes # 0.0 K/mm3 04/11/21 06:47 Blast Cells # 0.0 K/mm3 04/11/21 06:47 WBC Morphology Not Reportable 04/11/21 06:47 Hypersegmented Neuts Not Reportable 04/11/21 06:47 Hyposegmented Neuts Not Reportable 04/11/21 06:47 Hypogranular Neuts Not Reportable 04/11/21 06:47 Smudge Cells Not Reportable 04/11/21 06:47 Toxic Granulation 1+ 04/11/21 06:47 Toxic Vacuolation Not Reportable 04/11/21 06:47 Dohle Bodies Not Reportable 04/11/21 06:47 Pelger-Huet Anomaly Not Reportable 04/11/21 06:47 Mely Rods Not Reportable 04/11/21 06:47 Platelet Estimate Consistent w auto 04/11/21 06:47 Clumped Platelets Not Reportable 04/11/21 06:47 Plt Clumps, EDTA Not Reportable 04/11/21 06:47 Large Platelets Not Reportable 04/11/21 06:47 Giant Platelets Not Reportable 04/11/21 06:47 Platelet Satelliting Not Reportable 04/11/21 06:47 Plt Morphology Comment Not Reportable 04/11/21 06:47 RBC Morphology Not Reportable 04/11/21 06:47 Dimorphic RBCs Not Reportable 04/11/21 06:47 Polychromasia Not Reportable 04/11/21 06:47 Hypochromasia Not Reportable 04/11/21 06:47 Poikilocytosis Not Reportable 04/11/21 06:47 Anisocytosis 1+ 04/11/21 06:47 Microcytosis Not Reportable 04/11/21 06:47 Macrocytosis Not Reportable 04/11/21 06:47 Spherocytes Not Reportable 04/11/21 06:47 Pappenheimer Bodies Not Reportable 04/11/21 06:47 Sickle Cells Not Reportable 04/11/21 06:47 Target Cells Not Reportable 04/11/21 06:47 Tear Drop Cells Not Reportable 04/11/21 06:47 Ovalocytes Not Reportable 04/11/21 06:47 Helmet Cells Not Reportable 04/11/21 06:47 [place] Bodies Not Reportable 04/11/21 06:47 [place] Rings Not Reportable 04/11/21 06:47 [place] Cells Not Reportable 04/11/21 06:47 Bite Cells Not Reportable 04/11/21 06:47 Crenated Cell Not Reportable 04/11/21 06:47 Elliptocytes Not Reportable 04/11/21 06:47 Acanthocytes (Spur) Not Reportable 04/11/21 06:47 Rouleaux Not Reportable 04/11/21 06:47 Hemoglobin C Crystals Not Reportable 04/11/21 06:47 Schistocytes Not Reportable 04/11/21 06:47 Malaria parasites Not Reportable 04/11/21 06:47 [place] Bodies Not Reportable 04/11/21 06:47 Hem Pathologist Commnt No 04/11/21 06:47 PT 13.4 Sec. (12.2-14.9) 04/11/21 18:17 INR 0.92 (0.87-1.13) 04/11/21 18:17 APTT 61.1 Sec. (24.2-36.6) H* 04/11/21 18:17 D-Dimer 1359.12 ng/mlDDU (0-234) H 03/17/21 04:40 Heparin Anti-Xa Level 1.03 U.I./ml (0.3-0.7) H 04/12/21 05:11 ABG pH 7.503 (7.320-7.450) H 04/21/21 11:37 POC ABG pCO2 43.0 mmHg (32.0-48.0) 04/21/21 11:37 ABG pCO2 50.9 mm Hg 04/18/21 11:30 POC ABG pO2 92.3 mmHg (83-108) 04/21/21 11:37 ABG pO2 108.9 mm Hg (80.0-90.0) H 04/18/21 11:30 POC ABG HCO3 33.0 04/21/21 11:37 ABG HCO3 36.2 mmol/L (20.0-26.0) H 04/18/21 11:30 ABG O2 Saturation 98.2 (0-100) 04/21/21 11:37 ABG O2 Content 12.1 (0.0-44) 04/18/21 11:30 POC ABG Base Excess 9.0 04/21/21 11:37 ABG Base Excess 11.2 mmol/L (-2.0-3.0) H 04/18/21 11:30 ABG Hemoglobin 10.8 (12.0-17.5) L 04/21/21 11:37 ABG Oxyhemoglobin 97.8 (94-98) 04/21/21 11:37 ABG Carboxyhemoglobin 1.7 % (0.0-5.0) 04/18/21 11:30 ABG Methemoglobin 0.3 (0.0-1.5) 04/21/21 11:37 ABG Sodium 134.2 mmol/L (136.0-145.0) L 03/12/21 21:54 ABG Potassium 4.9 mmol/L (3.40-4.50) H 03/12/21 21:54 ABG Chloride 99.0 mmol/L (98-107) 03/12/21 21:54 ABG Glucose 306 mg/dL (65-95) H 03/12/21 21:54 Oxyhemoglobin 95.9 % (95.0-99.0) 04/18/21 11:30 Carboxyhemoglobin 0.1 (0.5-1.5) L 04/21/21 11:37 FiO2 40 % 04/18/21 11:30 FiO2 % 35.0 04/21/21 11:37 Sodium 142 mmol/L (137-145) 04/24/21 04:00 Potassium 3.9 mmol/L (3.6-5.0) 04/24/21 04:00 Chloride 103.8 mmol/L (98-107) 04/24/21 04:00 Carbon Dioxide 27 mmol/L (22-30) 04/24/21 04:00 Anion Gap 15 mmol/L 04/24/21 04:00 BUN 14 mg/dL (9-20) 04/24/21 04:00 Creatinine 0.4 mg/dL (0.8-1.3) L 04/24/21 04:00 Estimated GFR > 60 ml/min 04/24/21 04:00 BUN/Creatinine Ratio 35 % 04/24/21 04:00 Glucose 136 mg/dL (75-100) H 04/24/21 04:00 POC Glucose 135 mg/dL (70-105) H 04/24/21 05:15 Lactic Acid 1.90 mmol/L (0.7-2.0) 03/08/21 23:51 Calcium 9.4 mg/dL (8.4-10.2) 04/24/21 04:00 Phosphorus 3.60 mg/dL (2.5-4.5) 04/17/21 04:25 Magnesium 2.30 mg/dL (1.7-2.3) 04/19/21 04:26 Ferritin 976.4 ng/mL (30.0-300.0) H 03/15/21 04:00 Total Bilirubin 0.20 mg/dL (0.1-1.2) 03/12/21 08:03 AST 10 units/L (5-40) 03/12/21 08:03 ALT 16 units/L (7-56) 03/12/21 08:03 Alkaline Phosphatase 77 units/L (35-129) 03/12/21 08:03 Lactate Dehydrogenase 630 units/L (91-180) H 03/15/21 06:06 C-Reactive Protein 0.40 mg/dL (0.00-1.30) 03/17/21 04:40 NT-Pro-B Natriuret Pep 1053 pg/mL (0-900) H 03/08/21 20:24 Total Protein 6.0 g/dL (6.3-8.2) L 03/12/21 08:03 Albumin 2.9 g/dL (3.9-5) L 03/12/21 08:03 Albumin/Globulin Ratio 0.9 % 03/12/21 08:03 Triglycerides 305 mg/dL (2-149) H 03/22/21 07:26 Procalcitonin 0.19 ng/mL (<0.15) 04/18/21 04:20 Arterial Blood Glucose 306 mg/dL (65-95) H 03/12/21 21:54 Arterial Blood Ionized Calcium 5.0 mg/dL (4.6-5.3) 03/12/21 21:54 Urine Color Yellow (Yellow) 04/14/21 Unknown Urine Turbidity Clear (Clear) 04/14/21 Unknown Urine pH 8.0 (5.0-7.0) H 04/14/21 Unknown Ur Specific [place] 1.009 (1.003-1.030) 04/14/21 Unknown Urine Protein <15 mg/dl mg/dL (Negative) 04/14/21 Unknown Urine Glucose (UA) Neg mg/dL (Negative) 04/14/21 Unknown Urine Ketones Neg mg/dL (Negative) 04/14/21 Unknown Urine Blood Neg (Negative) 04/14/21 Unknown Urine Nitrite Neg (Negative) 04/14/21 Unknown Urine Bilirubin Neg (Negative) 04/14/21 Unknown Urine Urobilinogen 2.0 mg/dL (<2.0) 04/14/21 Unknown Ur Leukocyte Esterase Neg (Negative) 04/14/21 Unknown Urine WBC (Auto) < 1.0 /HPF (0.0-6.0) 04/14/21 Unknown Urine RBC (Auto) < 1.0 /HPF (0.0-6.0) 04/14/21 Unknown Urine Bacteria (Auto) 1+ /HPF (Negative) 03/09/21 04:10 Urine Mucus Few /HPF 03/09/21 04:10 Vancomycin Trough 16.8 ug/mL (5.0-20.0) 04/16/21 14:30 Coronavirus (PCR) Positive (Negative) A 03/09/21 08:00 Miscellaneous Test Flexitest 1 03/16/21 13:14 Good/IV: Voiding Method Indwelling Catheter Active Medications - Current Medications Current Medications: Generic Name Dose Route Start Last Admin Trade Name Freq PRN Reason Stop Dose Admin Acetaminophen 650 mg 03/09/21 01:26 04/24/21 00:28 Acetaminophen 325 Mg Tab PO 650 mg Q4H PRN Administration Pain MILD(1-3)/Fever >100.5/RAYO Albuterol 2.5 mg 03/09/21 01:26 03/18/21 21:06 Albuterol 2.5 Mg/3 Ml Nebu IH 2.5 mg Q4HRT PRN Administration Shortness Of Breath Amlodipine Besylate 10 mg 04/11/21 10:00 04/24/21 10:14 Amlodipine 5 Mg Tab PO 10 mg QDAY BLANCA Administration Apixaban 5 mg 04/18/21 22:00 04/24/21 10:14 Apixaban 5 Mg Tab PO 5 mg Q12HR BLANCA Administration Protocol Arformoterol Tartrate 15 mcg 03/11/21 20:00 04/24/21 07:19 Arformoterol 15 Mcg/2 Ml Nebu IH 15 mcg Q12HRT BLANCA Administration Dextrose 0 ml 03/20/21 10:52 Dextrose 10% *Hypoglycemia IV PRN PRN Hypoglycemia Docusate Sodium 100 mg 04/23/21 10:00 04/24/21 10:14 Docusate Sodium 100 Mg/10 Ml Oral Liqd PO 100 mg BID BLANCA Administration Doxazosin Mesylate 1 mg 04/05/21 22:00 04/24/21 10:15 Doxazosin 1 Mg Tab PO 1 mg BID BLANCA Administration Famotidine 20 mg 03/12/21 22:00 04/24/21 10:14 Famotidine 20 Mg Tab FEEDTUBE 20 mg BID BLANCA Administration Glycopyrrolate 2 mg 04/22/21 23:42 04/24/21 10:14 Glycopyrrolate 2 Mg Tab PO 2 mg TID BLANCA Administration Hydralazine HCl 50 mg 03/23/21 14:26 04/24/21 06:31 Hydralazine 25 Mg Tab PO 50 mg Q8HR BLANCA Administration Cefazolin Sodium 3 gm/ Sodium 100 mls @ 100 mls/30 min 04/20/21 14:00 04/24/21 06:30 Chloride IV 100 mls/30 min Q8HR BLANCA Administration Protocol Insulin Glargine 18 units 04/07/21 22:00 04/23/21 22:47 Insulin Glargine 100 Units/Ml SUB-Q 18 units QHS BLANCA Administration Insulin Human Lispro 0 unit 03/11/21 18:00 04/24/21 07:33 Insulin Lispro 100 Unit/Ml SUB-Q Not Given Q6HR [facility] Protocol Metoprolol Tartrate 12.5 mg 03/21/21 22:00 04/24/21 10:15 Metoprolol Tartrate 25 Mg Tab PO 12.5 mg BID BLANCA Administration Ondansetron HCl 4 mg 03/09/21 01:26 04/13/21 16:17 Ondansetron 4 Mg/2 Ml Inj IV 4 mg Q8H PRN Administration Nausea And Vomiting Oxycodone HCl 5 mg 04/13/21 12:34 04/24/21 10:14 Oxycodone 5 Mg Tab PO 5 mg Q6HR PRN Administration Pain, Moderate (4-6) Phenyleph/Shark Oil/Min Oil/Petrol 1 applic 03/22/21 17:35 04/06/21 04:04 Pe/Mo/Pet,Wh 10 Applic/ Gm Tube MN 1 applic Q6HR PRN Administration Hemorrhoids Scopolamine 1 each 04/19/21 13:00 04/22/21 09:49 Scopolamine Transdermal Patch 72 Hr TD 1 each Q3D BLANCA Administration Sodium Chloride 10 ml 03/09/21 10:00 04/24/21 10:15 Sodium Chloride 0.9% 10 Ml Flush Syringe IV 10 ml BID BLANCA Administration Sodium Chloride 10 ml 03/09/21 01:26 04/10/21 21:07 Sodium Chloride 0.9% 10 Ml Flush Syringe IV 10 ml PRN PRN Administration LINE FLUSH Nutrition/Malnutrition Assess - Dietary Evaluation Nutrition/Malnutrition Findings: Nutrition Notes Start: 03/09/21 08:49 Freq: Status: Active Protocol: Document 04/21/21 14:27 BRIAN (Rec: 04/21/21 14:29 BRIAN [id number]) Nutrition Notes Initial or Follow up Reassessment Current Diagnosis Diabetes,Sepsis,Hypertension, Respiratory Failure Other Pertinent Diagnosis COVID-19, Bilateral Pneumonia. Current Diet TF-Glucerna 1.2 at 70 ml/hr Labs/Tests reviewed Pertinent Medications Lasix Height 5 ft 11 in Weight 122.4 kg [place] Body Weight (kg) 78.18 BMI 37.6 Weight Status Obese Subjective/Other Information Pt tolerating T-piece trials for past two days. Per RN, will move to IMCU. Pt continues to tolerate TF at goal rate. Percent of energy/protein needs met: 82% energy 78% pro Burn Absent Trauma Absent #1 Nutrition Diagnosis Inadequate oral intake Diagnosis Progress(for reassessment Continues documentation) Is patient on ventilator? No Is Patient Ambulatory and/or Out of Bed No REE-([facility]-confined to bed) [phone] Calculation Used for Recommendations 70-80% energy needs Additional Notes Energy needs: [phone] kcal/ day Pro needs 1.3g/kg adjBW: 130g/ day Fluid needs 1ml/kcal Nutrition Intervention Nutrition Support: Continue Glucerna 1.2 at 70ml/ hr with 110ml water flush q4h. Kcal 2,016 Protein (gm) 101 Carbohydrates (gm) 192 Fat (gm) 101 Fluid (mL) 1,352 Fiber (gm) 27 Goal #1 TF tolerance Goal #2 TF to meet at least 75% energy and pro needs Follow-Up By: 04/28/21 Additional Comments F/U: stable TF, wt, resp status
--- NOTE | 2021-04-24 14:31 | Progress Note ---
Assessment and Plan Cultures: SARS CoV2 PCR: positive 03/08/2021 blood culture: no growth 03/10/2021 sputum culture: Usual respiratory marlyn 03/16/2021 blood culture: no growth 03/18/2021 sputum culture: Stenotrophomonas 03/31/2021 Blood culture: no growth 03/31/2021 tracheal aspirate: usual resp marlyn 04/14/2021 sputum culture: MSSA 04/14/2021 blood culture: No growth 04/14/2021 urine culture: No growth 04/15/2021 right middle lobe respiratory culture: MSSA A/P: 61-year-old male with diabetes, hypertension admitted to the hospital with complaints of shortness of breath and feeling weak for the last 1 week: #Sepsis secondary to bilateral pneumonia: secondary to COVID-19. Completed remdesivir, s/p Actemra, steroids. Completed abx for bacterial pneumonia, Stenotrophomonas. #MSSA pneumonia #Acute hypoxic respiratory failure: s/p trach and PEG. #DM #HTN #Acute DVT in RUE Recs: -continue higher dose cefazolin 3 g q8 hrs, may need a long course of abx (MSSA can cause severe pneumonia including necrotizing pneumonia). PLanned 14 days -monitor fever and WBC G. Joslyn Goins MD [facility] O: [phone] F: [phone] Subjective Date of service: 04/24/21 Principal diagnosis: COVID-19 infection; DM II; Bilateral pneumonia; Obesity; HTN Interval history: Afebrile, white count 12.9. Objective - Exam Narrative Exam: Physical exam deferred to reduce risk of transmission of COVID-19. Please refer to primary team's note. - Constitutional Vitals: Vital Signs Temp Pulse Resp BP Pulse Ox 99.7 F H 108 H 31 H 138/69 97 04/24/21 12:00 04/24/21 14:01 04/24/21 10:00 04/24/21 14:01 04/24/21 14:01 Temperature -Last 24 Hours Temperature 99.7 F Temperature 99.7 F Temperature 99.3 F Temperature 98.7 F Temperature 98.6 F Temperature 99.8 F Temperature 99.9 F - Labs CBC & Chem 7: 04/24/21 04:00 04/24/21 04:00 Labs: Abnormal lab results 04/23/21 04/23/21 04/24/21 Range/Units 18:12 23:41 04:00 WBC 12.9 H (4.5-11.0) K/mm3 RBC 3.33 L (3.65-5.03) M/mm3 Hgb 10.2 L (11.8-15.2) gm/dl Hct 30.1 L (35.5-45.6) % RDW 16.6 H (13.2-15.2) % Creatinine (0.8-1.3) mg/dL Glucose (75-100) mg/dL POC Glucose 148 H 127 H (70-105) mg/dL 04/24/21 04/24/21 04/24/21 Range/Units 04:00 05:15 11:45 WBC (4.5-11.0) K/mm3 RBC (3.65-5.03) M/mm3 Hgb (11.8-15.2) gm/dl Hct (35.5-45.6) % RDW (13.2-15.2) % Creatinine 0.4 L (0.8-1.3) mg/dL Glucose 136 H (75-100) mg/dL POC Glucose 135 H 140 H (70-105) mg/dL
[2021-04-24] MEDS ORDERED: SODIUM CHLORIDE 0.9% 500 ML 500 ML ONE (15:05)
--- NOTE | 2021-04-24 18:11 | Progress Note ---
Assessment and Plan 61-year-old male with past medical history of hypertension and diabetes was brought to the emergency room because of shortness of breath and hypoxia. Patient has been feeling ill for approximately a week. Patient was confused and paramedics were called. Patient's oxygen saturation levels were in the low 70s. 88-90% O2 sat on a NRB mask. Patient does state he has had some cough was unable to give much additional history on arrival. Denies nausea vomiting diarrhea. Patient has not had a COVID test atient hypoxic even on a nonrebreather at 88%. Patient placed on BiPAP and his gait has a better O2 sat and his alertness is improved as well. Patient with by lateral patchy infiltrates in all lobes consistent with COVID-pneumonia. COVID testing is ordered. Umanzor virus test came back positive. Patient given Rocephin ,azithromycin and low-dose Decadron since he is diabetic. Patient to be admitted to the hospital service. Patient also given REMDESIVIR. Later decadron switched to I/V solumedrol. Patients inflammatory markers, D dimer, ferritin CRP are elevated. patient started on anticoagulation. Patient intubated and placed on mechanical ventilation. Patient has tracheostomy, eventually weaned from the ventilator, Patient Obese, Awake Patient is on T tube, FIO2 28%. O2 saturation running 99%. No acute respiratory distress. Patient afebrile. Patient has mild leukocytosis. Blood pressure 130/87, Pulse 1 13, Respirations 31. Chest xray done 04/17/21 reported Mild improvement in pulmonary opacities. Patient is on Apixaban, Brovanna aerosol treatments, Famotidine,Glycopyrrolate and Cefazolin I spent critical care time of 40 minutes, review the chart, examine the patient, review chest xray and lab results, talking to respiratory and nursing staff and work out plan of treatment in this critically ill Covid 19 positive patient. - Patient Problems (1) Acute respiratory failure Current Visit: Yes Status: Acute Plan to address problem: Patient is on T tube, FIO2 28%. Brovanna aerosol treatments. Continue Apixaban Continue famotidine. (2) Diabetes Current Visit: Yes Status: Acute Plan to address problem: Management as per primary care. (3) Hypertension Current Visit: Yes Status: Acute Plan to address problem: Management as per primary care. (4) Coronavirus infection Current Visit: Yes Status: Acute Plan to address problem: Patient was on I/V solumedrol, REMDESIVIR,Apixaban, ceftriaxone and zithromax. Management as per infectious disease specialists. Subjective Date of service: 04/24/21 Principal diagnosis: COVID-19 infection; DM II; Bilateral pneumonia; Obesity; HTN Interval history: 61-year-old male with past medical history of hypertension and diabetes was brought to the emergency room because of shortness of breath and hypoxia. Patient has been feeling ill for approximately a week. Patient was confused and paramedics were called. Patient's oxygen saturation levels were in the low 70s. 88-90% O2 sat on a NRB mask. Patient does state he has had some cough was unable to give much additional history on arrival. Denies nausea vomiting diarrhea. Patient has not had a COVID test Patient hypoxic even on a nonrebreather at 88%. Patient placed on BiPAP and his gait has a better O2 sat and his alertness is improved as well. Patient with by lateral patchy infiltrates in all lobes consistent with COVID-pneumonia. COVID testing is ordered. Umanzor virus test came back positive. Patient given Rocephin ,azithromycin and low-dose Decadron since he is diabetic. Patient to be admitted to the hospital service. Patient also given REMDESIVIR. Later decadron switched to I/V solumedrol. Patients inflammatory markers, D dimer, ferritin CRP are elevated. patient started on anticoagulation. Patient intubated and placed on mechanical ventilation. Patient has tracheosto my, eventually weaned from the ventilator, Patient Obese, Awake Patient is on T tube, FIO2 28%. O2 saturation running 99%. No acute respiratory distress. Patient afebrile. Patient has mild leukocytosis. Blood pressure 130/87, Pulse 113, Respirations 31. Chest xray done 04/17/21 reported Mild improvement in pulmonary opacities. Patient is on Apixaban, Brovanna aerosol treatments, Famotidine,Glycopyrrolate and Cefazolin Objective Vital Signs - 12hr 04/24/21 04/24/21 04/24/21 06:31 07:01 07:19 Temperature Pulse Rate 104 H 117 H Pulse Rate [ 114 H Bilateral Throughout] Pulse Rate [ From Monitor] Respiratory 12 Rate Respiratory 16 Rate [Bilateral Throughout] Blood Pressure 146/79 146/79 O2 Sat by Pulse 88 Oximetry O2 Sat by Pulse Oximetry [ Assessment] 04/24/21 04/24/21 04/24/21 07:23 08:00 09:00 Temperature 99.3 F 99.7 F H Pulse Rate 116 H 117 H Pulse Rate [ Bilateral Throughout] Pulse Rate [ 118 H From Monitor] Respiratory 30 H 26 H Rate Respiratory Rate [Bilateral Throughout] Blood Pressure 158/88 150/90 O2 Sat by Pulse 99 88 96 Oximetry O2 Sat by Pulse Oximetry [ Assessment] 04/24/21 04/24/21 04/24/21 10:00 10:14 10:15 Temperature Pulse Rate 117 H 116 H 116 H Pulse Rate [ Bilateral Throughout] Pulse Rate [ From Monitor] Respiratory 31 H Rate Respiratory Rate [Bilateral Throughout] Blood Pressure 158/87 158/87 158/87 O2 Sat by Pulse 86 Oximetry O2 Sat by Pulse Oximetry [ Assessment] 04/24/21 04/24/21 04/24/21 11:00 12:00 13:00 Temperature 99.7 F H Pulse Rate 106 H 111 H 105 H Pulse Rate [ Bilateral Throughout] Pulse Rate [ 104 H From Monitor] Respiratory 21 Rate Respiratory Rate [Bilateral Throughout] Blood Pressure 139/84 137/82 132/71 O2 Sat by Pulse 99 90 99 Oximetry O2 Sat by Pulse Oximetry [ Assessment] 04/24/21 04/24/21 04/24/21 14:01 15:07 15:31 Temperature Pulse Rate 108 H 106 H Pulse Rate [ Bilateral Throughout] Pulse Rate [ From Monitor] Respiratory Rate Respiratory Rate [Bilateral Throughout] Blood Pressure 138/69 150/107 O2 Sat by Pulse 97 Oximetry O2 Sat by Pulse 99 Oximetry [ Assessment] 04/24/21 16:14 Temperature 99.2 F Pulse Rate Pulse Rate [ Bilateral Throughout] Pulse Rate [ From Monitor] Respiratory Rate Respiratory Rate [Bilateral Throughout] Blood Pressure O2 Sat by Pulse Oximetry O2 Sat by Pulse Oximetry [ Assessment] Constitutional: no acute distress, alert, other (elderly obese male with mildly increased respiratory effort at rest) Eyes: non-icteric ENT: oropharynx moist, other (+ midline tracheostomy) Neck: supple, no lymphadenopathy, lymphadenopathy, no JVD, other (large circumference) Effort: mildly labored Ascultation: Bilateral: diminished breath sounds, rales, rhonchi Percussion: Bilateral: not dull Cardiovascular: regular rate and rhythm, other (tachycardia, S1,S2) Gastrointestinal: normoactive bowel sounds, soft, non-tender, non-distended (protuberant), other (Good in place) Integumentary: normal Extremities: no cyanosis, pulses normal, no ischemia or petechiae, edema (upper extremities), other Neurologic: non-focal exam (grossly), pupils equal and round, CN II-XII normal Psychiatric: other (Patient sleeping at this time.) CBC and BMP: 04/24/21 04:00 04/25/21 15:04 ABG, PT/INR, D-dimer: ABG ABG pH 7.503 (7.320-7.450) H 04/21/21 11:37 POC ABG pCO2 43.0 mmHg (32.0-48.0) 04/21/21 11:37 ABG pCO2 50.9 mm Hg 04/18/21 11:30 POC ABG pO2 92.3 mmHg (83-108) 04/21/21 11:37 ABG pO2 108.9 mm Hg (80.0-90.0) H 04/18/21 11:30 POC ABG HCO3 33.0 04/21/21 11:37 ABG O2 Saturation 98.2 (0-100) 04/21/21 11:37 PT/INR, D-dimer PT 13.4 Sec. (12.2-14.9) 04/11/21 18:17 INR 0.92 (0.87-1.13) 04/11/21 18:17 D-Dimer 1359.12 ng/mlDDU (0-234) H 03/17/21 04:40 Abnormal lab findings: Abnormal Labs 03/08/21 03/08/21 03/08/21 20:24 20:24 20:24 WBC 22.6 H RBC 5.44 H Hgb 15.7 H Hct 49.2 H MCV MCHC RDW Plt Count Lymph % (Auto) [place] % (Auto) Lymph # (Auto) [place] # (Auto) Seg Neutrophils % Seg Neuts % (Manual) 83.0 H Lymphocytes % (Manual) 9.0 L Monocytes % (Manual) 8.0 H Nucleated RBC % Seg Neutrophils # Seg Neutrophils # Man 18.8 H Lymphocytes # (Manual) Monocytes # (Manual) 1.8 H PT 16.1 H INR 1.17 H APTT D-Dimer > 33730 H Heparin Anti-Xa Level ABG pH POC ABG pCO2 POC ABG pO2 ABG pO2 ABG HCO3 ABG O2 Saturation ABG Base Excess ABG Hemoglobin ABG Oxyhemoglobin ABG Sodium ABG Potassium ABG Glucose Oxyhemoglobin Carboxyhemoglobin Sodium 136 L Potassium Chloride 93.9 L Carbon Dioxide BUN 29 H Creatinine Glucose 208 H POC Glucose Lactic Acid Calcium Phosphorus Magnesium Ferritin Lactate Dehydrogenase 624 H C-Reactive Protein 18.00 H NT-Pro-B Natriuret Pep 1053 H Total Protein Albumin Triglycerides Arterial Blood Glucose Urine pH Ur Specific [place] Coronavirus (PCR) 03/08/21 03/08/21 03/09/21 20:24 20:24 04:10 WBC RBC Hgb Hct MCV MCHC RDW Plt Count Lymph % (Auto) [place] % (Auto) Lymph # (Auto) [place] # (Auto) Seg Neutrophils % Seg Neuts % (Manual) Lymphocytes % (Manual) Monocytes % (Manual) Nucleated RBC % Seg Neutrophils # Seg Neutrophils # Man Lymphocytes # (Manual) Monocytes # (Manual) PT INR APTT D-Dimer Heparin Anti-Xa Level ABG pH POC ABG pCO2 POC ABG pO2 ABG pO2 ABG HCO3 ABG O2 Saturation ABG Base Excess ABG Hemoglobin ABG Oxyhemoglobin ABG Sodium ABG Potassium ABG Glucose Oxyhemoglobin Carboxyhemoglobin Sodium Potassium Chloride Carbon Dioxide BUN Creatinine Glucose POC Glucose Lactic Acid 2.10 H* Calcium Phosphorus Magnesium Ferritin 877.5 H Lactate Dehydrogenase C-Reactive Protein NT-Pro-B Natriuret Pep Total Protein Albumin Triglycerides Arterial Blood Glucose Urine pH Ur Specific [place] 1.041 H Coronavirus (PCR) 03/09/21 03/09/21 03/09/21 07:46 08:00 13:01 WBC RBC Hgb Hct MCV MCHC RDW Plt Count Lymph % (Auto) [place] % (Auto) Lymph # (Auto) [place] # (Auto) Seg Neutrophils % Seg Neuts % (Manual) Lymphocytes % (Manual) Monocytes % (Manual) Nucleated RBC % Seg Neutrophils # Seg Neutrophils # Man Lymphocytes # (Manual) Monocytes # (Manual) PT INR APTT D-Dimer Heparin Anti-Xa Level ABG pH POC ABG pCO2 POC ABG pO2 ABG pO2 ABG HCO3 ABG O2 Saturation ABG Base Excess ABG Hemoglobin ABG Oxyhemoglobin ABG Sodium ABG Potassium ABG Glucose Oxyhemoglobin Carboxyhemoglobin Sodium Potassium Chloride Carbon Dioxide BUN Creatinine Glucose POC Glucose 191 H 182 H Lactic Acid Calcium Phosphorus Magnesium Ferritin Lactate Dehydrogenase C-Reactive Protein NT-Pro-B Natriuret Pep Total Protein Albumin Triglycerides Arterial Blood Glucose Urine pH Ur Specific [place] Coronavirus (PCR) Positive A 03/09/21 03/09/21 03/09/21 15:19 17:48 18:10 WBC RBC Hgb Hct MCV MCHC RDW Plt Count Lymph % (Auto) [place] % (Auto) Lymph # (Auto) [place] # (Auto) Seg Neutrophils % Seg Neuts % (Manual) Lymphocytes % (Manual) Monocytes % (Manual) Nucleated RBC % Seg Neutrophils # Seg Neutrophils # Man Lymphocytes # (Manual) Monocytes # (Manual) PT INR APTT D-Dimer Heparin Anti-Xa Level ABG pH POC ABG pCO2 POC ABG pO2 ABG pO2 47.3 L ABG HCO3 26.3 H ABG O2 Saturation 83.7 L ABG Base Excess ABG Hemoglobin ABG Oxyhemoglobin ABG Sodium ABG Potassium ABG Glucose Oxyhemoglobin 82.1 L Carboxyhemoglobin Sodium Potassium Chloride Carbon Dioxide BUN 29 H Creatinine Glucose 214 H POC Glucose 194 H Lactic Acid Calcium Phosphorus Magnesium Ferritin Lactate Dehydrogenase C-Reactive Protein NT-Pro-B Natriuret Pep Total Protein Albumin 3.4 L Triglycerides Arterial Blood Glucose Urine pH Ur Specific [place] Coronavirus (PCR) 03/09/21 03/10/21 03/10/21 20:40 04:29 04:29 WBC 20.6 H RBC 5.07 H Hgb Hct 46.2 H MCV MCHC RDW Plt Count Lymph % (Auto) [place] % (Auto) Lymph # (Auto) [place] # (Auto) Seg Neutrophils % Seg Neuts % (Manual) 94.0 H Lymphocytes % (Manual) 1.0 L Monocytes % (Manual) Nucleated RBC % 3.0 H Seg Neutrophils # Seg Neutrophils # Man 19.4 H Lymphocytes # (Manual) 0.2 L Monocytes # (Manual) 1.0 H PT INR APTT D-Dimer Heparin Anti-Xa Level ABG pH POC ABG pCO2 POC ABG pO2 ABG pO2 ABG HCO3 ABG O2 Saturation ABG Base Excess ABG Hemoglobin ABG Oxyhemoglobin ABG Sodium ABG Potassium ABG Glucose Oxyhemoglobin Carboxyhemoglobin Sodium Potassium Chloride Carbon Dioxide BUN 29 H Creatinine Glucose 188 H POC Glucose 176 H Lactic Acid Calcium Phosphorus Magnesium Ferritin Lactate Dehydrogenase C-Reactive Protein NT-Pro-B Natriuret Pep Total Protein Albumin 3.3 L Triglycerides Arterial Blood Glucose Urine pH Ur Specific [place] Coronavirus (PCR) 03/10/21 03/10/21 03/10/21 05:22 10:27 15:25 WBC RBC Hgb Hct MCV MCHC RDW Plt Count Lymph % (Auto) [place] % (Auto) Lymph # (Auto) [place] # (Auto) Seg Neutrophils % Seg Neuts % (Manual) Lymphocytes % (Manual) Monocytes % (Manual) Nucleated RBC % Seg Neutrophils # Seg Neutrophils # Man Lymphocytes # (Manual) Monocytes # (Manual) PT INR APTT D-Dimer Heparin Anti-Xa Level ABG pH 7.488 H 7.488 H POC ABG pCO2 POC ABG pO2 ABG pO2 47.7 L 50.5 L ABG HCO3 ABG O2 Saturation 86.2 L 87.9 L ABG Base Excess ABG Hemoglobin ABG Oxyhemoglobin ABG Sodium ABG Potassium ABG Glucose Oxyhemoglobin 84.6 L 86.2 L Carboxyhemoglobin Sodium Potassium Chloride Carbon Dioxide BUN Creatinine Glucose POC Glucose 155 H Lactic Acid Calcium Phosphorus Magnesium Ferritin Lactate Dehydrogenase C-Reactive Protein NT-Pro-B Natriuret Pep Total Protein Albumin Triglycerides Arterial Blood Glucose Urine pH Ur Specific [place] Coronavirus (PCR) 03/10/21 03/10/21 03/11/21 18:10 18:55 00:07 WBC RBC Hgb Hct MCV MCHC RDW Plt Count Lymph % (Auto) [place] % (Auto) Lymph # (Auto) [place] # (Auto) Seg Neutrophils % Seg Neuts % (Manual) Lymphocytes % (Manual) Monocytes % (Manual) Nucleated RBC % Seg Neutrophils # Seg Neutrophils # Man Lymphocytes # (Manual) Monocytes # (Manual) PT INR APTT D-Dimer Heparin Anti-Xa Level ABG pH 7.343 L POC ABG pCO2 POC ABG pO2 ABG pO2 60.4 L ABG HCO3 27.9 H ABG O2 Saturation 88.7 L ABG Base Excess ABG Hemoglobin ABG Oxyhemoglobin ABG Sodium ABG Potassium ABG Glucose Oxyhemoglobin 86.9 L Carboxyhemoglobin Sodium Potassium Chloride Carbon Dioxide BUN Creatinine Glucose POC Glucose 187 H 139 H Lactic Acid Calcium Phosphorus Magnesium Ferritin Lactate Dehydrogenase C-Reactive Protein NT-Pro-B Natriuret Pep Total Protein Albumin Triglycerides Arterial Blood Glucose Urine pH Ur Specific [place] Coronavirus (PCR) 03/11/21 03/11/21 03/11/21 02:09 04:28 08:06 WBC RBC Hgb Hct MCV MCHC RDW Plt Count Lymph % (Auto) [place] % (Auto) Lymph # (Auto) [place] # (Auto) Seg Neutrophils % Seg Neuts % (Manual) Lymphocytes % (Manual) Monocytes % (Manual) Nucleated RBC % Seg Neutrophils # Seg Neutrophils # Man Lymphocytes # (Manual) Monocytes # (Manual) PT INR APTT D-Dimer Heparin Anti-Xa Level ABG pH 7.277 L POC ABG pCO2 55.9 H POC ABG pO2 54.4 L ABG pO2 ABG HCO3 ABG O2 Saturation ABG Base Excess ABG Hemoglobin ABG Oxyhemoglobin 83.0 L ABG Sodium ABG Potassium 4.8 H ABG Glucose 180 H Oxyhemoglobin Carboxyhemoglobin Sodium Potassium Chloride Carbon Dioxide BUN 38 H Creatinine Glucose 249 H POC Glucose 278 H Lactic Acid Calcium Phosphorus Magnesium Ferritin Lactate Dehydrogenase C-Reactive Protein NT-Pro-B Natriuret Pep Total Protein Albumin 3.2 L Triglycerides Arterial Blood Glucose 180 H Urine pH Ur Specific [place] Coronavirus (PCR) 03/11/21 03/11/21 03/11/21 11:29 15:06 15:48 WBC RBC Hgb Hct MCV MCHC RDW Plt Count Lymph % (Auto) [place] % (Auto) Lymph # (Auto) [place] # (Auto) Seg Neutrophils % Seg Neuts % (Manual) Lymphocytes % (Manual) Monocytes % (Manual) Nucleated RBC % Seg Neutrophils # Seg Neutrophils # Man Lymphocytes # (Manual) Monocytes # (Manual) PT INR APTT D-Dimer Heparin Anti-Xa Level ABG pH 7.260 L POC ABG pCO2 POC ABG pO2 ABG pO2 53.5 L ABG HCO3 29.5 H ABG O2 Saturation 84.0 L ABG Base Excess ABG Hemoglobin ABG Oxyhemoglobin ABG Sodium ABG Potassium ABG Glucose Oxyhemoglobin 82.3 L Carboxyhemoglobin Sodium Potassium Chloride Carbon Dioxide BUN Creatinine Glucose POC Glucose 288 H 295 H Lactic Acid Calcium Phosphorus Magnesium Ferritin Lactate Dehydrogenase C-Reactive Protein NT-Pro-B Natriuret Pep Total Protein Albumin Triglycerides Arterial Blood Glucose Urine pH Ur Specific [place] Coronavirus (PCR) 03/12/21 03/12/21 03/12/21 00:01 05:24 08:03 WBC RBC Hgb Hct MCV MCHC RDW Plt Count Lymph % (Auto) [place] % (Auto) Lymph # (Auto) [place] # (Auto) Seg Neutrophils % Seg Neuts % (Manual) Lymphocytes % (Manual) Monocytes % (Manual) Nucleated RBC % Seg Neutrophils # Seg Neutrophils # Man Lymphocytes # (Manual) Monocytes # (Manual) PT INR APTT D-Dimer Heparin Anti-Xa Level ABG pH POC ABG pCO2 POC ABG pO2 ABG pO2 ABG HCO3 ABG O2 Saturation ABG Base Excess ABG Hemoglobin ABG Oxyhemoglobin ABG Sodium ABG Potassium ABG Glucose Oxyhemoglobin Carboxyhemoglobin Sodium 135 L Potassium Chloride Carbon Dioxide BUN 48 H Creatinine Glucose 358 H POC Glucose 304 H 310 H Lactic Acid Calcium Phosphorus Magnesium Ferritin Lactate Dehydrogenase C-Reactive Protein NT-Pro-B Natriuret Pep Total Protein 6.0 L Albumin 2.9 L Triglycerides Arterial Blood Glucose Urine pH Ur Specific [place] Coronavirus (PCR) 03/12/21 03/12/21 03/12/21 08:03 10:43 11:31 WBC 14.6 H RBC Hgb Hct MCV MCHC RDW Plt Count Lymph % (Auto) [place] % (Auto) Lymph # (Auto) [place] # (Auto) Seg Neutrophils % Seg Neuts % (Manual) Lymphocytes % (Manual) Monocytes % (Manual) Nucleated RBC % Seg Neutrophils # Seg Neutrophils # Man Lymphocytes # (Manual) Monocytes # (Manual) PT INR APTT D-Dimer Heparin Anti-Xa Level ABG pH 7.248 L POC ABG pCO2 POC ABG pO2 ABG pO2 73.7 L ABG HCO3 32.0 H ABG O2 Saturation 93.9 L ABG Base Excess ABG Hemoglobin ABG Oxyhemoglobin ABG Sodium ABG Potassium ABG Glucose Oxyhemoglobin 92.1 L Carboxyhemoglobin Sodium Potassium Chloride Carbon Dioxide BUN Creatinine Glucose POC Glucose 359 H Lactic Acid Calcium Phosphorus Magnesium Ferritin Lactate Dehydrogenase C-Reactive Protein NT-Pro-B Natriuret Pep Total Protein Albumin Triglycerides Arterial Blood Glucose Urine pH Ur Specific [place] Coronavirus (PCR) 03/12/21 03/12/21 03/13/21 17:20 21:54 00:02 WBC RBC Hgb Hct MCV MCHC RDW Plt Count Lymph % (Auto) [place] % (Auto) Lymph # (Auto) [place] # (Auto) Seg Neutrophils % Seg Neuts % (Manual) Lymphocytes % (Manual) Monocytes % (Manual) Nucleated RBC % Seg Neutrophils # Seg Neutrophils # Man Lymphocytes # (Manual) Monocytes # (Manual) PT INR APTT D-Dimer Heparin Anti-Xa Level ABG pH 7.238 L POC ABG pCO2 71.9 H POC ABG pO2 53.6 L ABG pO2 ABG HCO3 ABG O2 Saturation ABG Base Excess ABG Hemoglobin ABG Oxyhemoglobin 84.8 L ABG Sodium 134.2 L ABG Potassium 4.9 H ABG Glucose 306 H Oxyhemoglobin Carboxyhemoglobin Sodium Potassium Chloride Carbon Dioxide BUN Creatinine Glucose POC Glucose 374 H 308 H Lactic Acid Calcium Phosphorus Magnesium Ferritin Lactate Dehydrogenase C-Reactive Protein NT-Pro-B Natriuret Pep Total Protein Albumin Triglycerides Arterial Blood Glucose 306 H Urine pH Ur Specific [place] Coronavirus (PCR) 03/13/21 03/13/21 03/13/21 05:22 05:44 05:44 WBC 13.9 H RBC Hgb Hct MCV MCHC RDW Plt Count Lymph % (Auto) [place] % (Auto) Lymph # (Auto) [place] # (Auto) Seg Neutrophils % Seg Neuts % (Manual) Lymphocytes % (Manual) Monocytes % (Manual) Nucleated RBC % Seg Neutrophils # Seg Neutrophils # Man Lymphocytes # (Manual) Monocytes # (Manual) PT INR APTT D-Dimer 3567.97 H Heparin Anti-Xa Level ABG pH POC ABG pCO2 POC ABG pO2 ABG pO2 ABG HCO3 ABG O2 Saturation ABG Base Excess ABG Hemoglobin ABG Oxyhemoglobin ABG Sodium ABG Potassium ABG Glucose Oxyhemoglobin Carboxyhemoglobin Sodium Potassium Chloride Carbon Dioxide BUN Creatinine Glucose POC Glucose 316 H Lactic Acid Calcium Phosphorus Magnesium Ferritin Lactate Dehydrogenase C-Reactive Protein NT-Pro-B Natriuret Pep Total Protein Albumin Triglycerides Arterial Blood Glucose Urine pH Ur Specific [place] Coronavirus (PCR) 03/13/21 03/13/21 03/13/21 05:44 05:44 11:15 WBC RBC Hgb Hct MCV MCHC RDW Plt Count Lymph % (Auto) [place] % (Auto) Lymph # (Auto) [place] # (Auto) Seg Neutrophils % Seg Neuts % (Manual) Lymphocytes % (Manual) Monocytes % (Manual) Nucleated RBC % Seg Neutrophils # Seg Neutrophils # Man Lymphocytes # (Manual) Monocytes # (Manual) PT INR APTT D-Dimer Heparin Anti-Xa Level ABG pH 7.310 L POC ABG pCO2 POC ABG pO2 ABG pO2 52.3 L ABG HCO3 34.1 H ABG O2 Saturation 86.8 L ABG Base Excess 5.5 H ABG Hemoglobin 13.8 L ABG Oxyhemoglobin ABG Sodium ABG Potassium ABG Glucose Oxyhemoglobin 85.1 L Carboxyhemoglobin Sodium Potassium Chloride Carbon Dioxide BUN Creatinine Glucose POC Glucose Lactic Acid Calcium Phosphorus Magnesium Ferritin 858.7 H Lactate Dehydrogenase 348 H C-Reactive Protein 2.80 H NT-Pro-B Natriuret Pep Total Protein Albumin Triglycerides Arterial Blood Glucose Urine pH Ur Specific [place] Coronavirus (PCR) 03/13/21 03/13/21 03/13/21 11:21 15:47 19:23 WBC RBC Hgb Hct MCV MCHC RDW Plt Count Lymph % (Auto) [place] % (Auto) Lymph # (Auto) [place] # (Auto) Seg Neutrophils % Seg Neuts % (Manual) Lymphocytes % (Manual) Monocytes % (Manual) Nucleated RBC % Seg Neutrophils # Seg Neutrophils # Man Lymphocytes # (Manual) Monocytes # (Manual) PT INR APTT D-Dimer Heparin Anti-Xa Level ABG pH POC ABG pCO2 POC ABG pO2 ABG pO2 ABG HCO3 ABG O2 Saturation ABG Base Excess ABG Hemoglobin ABG Oxyhemoglobin ABG Sodium ABG Potassium ABG Glucose Oxyhemoglobin Carboxyhemoglobin Sodium 136 L Potassium 5.9 H Chloride Carbon Dioxide BUN 50 H Creatinine Glucose 397 H POC Glucose 322 H 317 H Lactic Acid Calcium Phosphorus Magnesium Ferritin Lactate Dehydrogenase C-Reactive Protein NT-Pro-B Natriuret Pep Total Protein Albumin Triglycerides Arterial Blood Glucose Urine pH Ur Specific [place] Coronavirus (PCR) 03/13/21 03/14/21 03/14/21 23:46 05:32 05:50 WBC 11.6 H RBC Hgb Hct MCV MCHC RDW Plt Count Lymph % (Auto) [place] % (Auto) Lymph # (Auto) [place] # (Auto) Seg Neutrophils % Seg Neuts % (Manual) Lymphocytes % (Manual) Monocytes % (Manual) Nucleated RBC % Seg Neutrophils # Seg Neutrophils # Man Lymphocytes # (Manual) Monocytes # (Manual) PT INR APTT D-Dimer Heparin Anti-Xa Level ABG pH POC ABG pCO2 POC ABG pO2 ABG pO2 ABG HCO3 ABG O2 Saturation ABG Base Excess ABG Hemoglobin ABG Oxyhemoglobin ABG Sodium ABG Potassium ABG Glucose Oxyhemoglobin Carboxyhemoglobin Sodium Potassium Chloride Carbon Dioxide BUN Creatinine Glucose POC Glucose 332 H 316 H Lactic Acid Calcium Phosphorus Magnesium Ferritin Lactate Dehydrogenase C-Reactive Protein NT-Pro-B Natriuret Pep Total Protein Albumin Triglycerides Arterial Blood Glucose Urine pH Ur Specific [place] Coronavirus (PCR) 03/14/21 03/14/21 03/14/21 05:50 11:33 16:53 WBC RBC Hgb Hct MCV MCHC RDW Plt Count Lymph % (Auto) [place] % (Auto) Lymph # (Auto) [place] # (Auto) Seg Neutrophils % Seg Neuts % (Manual) Lymphocytes % (Manual) Monocytes % (Manual) Nucleated RBC % Seg Neutrophils # Seg Neutrophils # Man Lymphocytes # (Manual) Monocytes # (Manual) PT INR APTT D-Dimer Heparin Anti-Xa Level ABG pH POC ABG pCO2 POC ABG pO2 ABG pO2 ABG HCO3 ABG O2 Saturation ABG Base Excess ABG Hemoglobin ABG Oxyhemoglobin ABG Sodium ABG Potassium ABG Glucose Oxyhemoglobin Carboxyhemoglobin Sodium Potassium 5.9 H Chloride Carbon Dioxide 31 H BUN 48 H Creatinine Glucose 380 H POC Glucose 315 H 235 H Lactic Acid Calcium Phosphorus Magnesium 3.40 H Ferritin Lactate Dehydrogenase C-Reactive Protein NT-Pro-B Natriuret Pep Total Protein Albumin Triglycerides Arterial Blood Glucose Urine pH Ur Specific [place] Coronavirus (PCR) 03/14/21 03/14/21 03/15/21 18:34 23:27 01:22 WBC RBC Hgb Hct 46.3 H MCV MCHC RDW Plt Count Lymph % (Auto) [place] % (Auto) Lymph # (Auto) [place] # (Auto) Seg Neutrophils % Seg Neuts % (Manual) Lymphocytes % (Manual) Monocytes % (Manual) Nucleated RBC % Seg Neutrophils # Seg Neutrophils # Man Lymphocytes # (Manual) Monocytes # (Manual) PT INR APTT D-Dimer Heparin Anti-Xa Level ABG pH POC ABG pCO2 POC ABG pO2 ABG pO2 ABG HCO3 ABG O2 Saturation ABG Base Excess ABG Hemoglobin ABG Oxyhemoglobin ABG Sodium ABG Potassium ABG Glucose Oxyhemoglobin Carboxyhemoglobin Sodium 146 H Potassium Chloride Carbon Dioxide 34 H BUN 49 H Creatinine Glucose 285 H POC Glucose 203 H Lactic Acid Calcium Phosphorus Magnesium Ferritin Lactate Dehydrogenase C-Reactive Protein NT-Pro-B Natriuret Pep Total Protein Albumin Triglycerides Arterial Blood Glucose Urine pH Ur Specific [place] Coronavirus (PCR) 03/15/21 03/15/21 03/15/21 04:00 06:06 06:06 WBC RBC Hgb Hct MCV MCHC RDW Plt Count Lymph % (Auto) [place] % (Auto) Lymph # (Auto) [place] # (Auto) Seg Neutrophils % Seg Neuts % (Manual) Lymphocytes % (Manual) Monocytes % (Manual) Nucleated RBC % Seg Neutrophils # Seg Neutrophils # Man Lymphocytes # (Manual) Monocytes # (Manual) PT INR APTT D-Dimer 1781.79 H Heparin Anti-Xa Level ABG pH POC ABG pCO2 POC ABG pO2 ABG pO2 ABG HCO3 ABG O2 Saturation ABG Base Excess ABG Hemoglobin ABG Oxyhemoglobin ABG Sodium ABG Potassium ABG Glucose Oxyhemoglobin Carboxyhemoglobin Sodium 148 H Potassium 5.7 H D Chloride 108.0 H Carbon Dioxide 31 H BUN 46 H Creatinine Glucose 139 H POC Glucose Lactic Acid Calcium Phosphorus 4.80 H D Magnesium 3.00 H Ferritin 976.4 H Lactate Dehydrogenase 630 H C-Reactive Protein NT-Pro-B Natriuret Pep Total Protein Albumin Triglycerides Arterial Blood Glucose Urine pH Ur Specific [place] Coronavirus (PCR) 03/15/21 03/15/21 03/15/21 11:56 14:05 17:09 WBC RBC Hgb Hct MCV MCHC RDW Plt Count Lymph % (Auto) [place] % (Auto) Lymph # (Auto) [place] # (Auto) Seg Neutrophils % Seg Neuts % (Manual) Lymphocytes % (Manual) Monocytes % (Manual) Nucleated RBC % Seg Neutrophils # Seg Neutrophils # Man Lymphocytes # (Manual) Monocytes # (Manual) PT INR APTT D-Dimer Heparin Anti-Xa Level ABG pH POC ABG pCO2 POC ABG pO2 ABG pO2 52.1 L ABG HCO3 36.6 H ABG O2 Saturation 87.6 L ABG Base Excess 9.5 H ABG Hemoglobin ABG Oxyhemoglobin ABG Sodium ABG Potassium ABG Glucose Oxyhemoglobin 85.7 L Carboxyhemoglobin Sodium Potassium Chloride Carbon Dioxide BUN Creatinine Glucose POC Glucose 219 H 263 H Lactic Acid Calcium Phosphorus Magnesium Ferritin Lactate Dehydrogenase C-Reactive Protein NT-Pro-B Natriuret Pep Total Protein Albumin Triglycerides Arterial Blood Glucose Urine pH Ur Specific [place] Coronavirus (PCR) 03/16/21 03/16/21 03/16/21 00:32 04:11 04:11 WBC 11.9 H RBC Hgb Hct MCV MCHC 30 L RDW Plt Count Lymph % (Auto) [place] % (Auto) Lymph # (Auto) [place] # (Auto) Seg Neutrophils % Seg Neuts % (Manual) Lymphocytes % (Manual) Monocytes % (Manual) Nucleated RBC % Seg Neutrophils # Seg Neutrophils # Man Lymphocytes # (Manual) Monocytes # (Manual) PT INR APTT D-Dimer Heparin Anti-Xa Level ABG pH POC ABG pCO2 POC ABG pO2 ABG pO2 ABG HCO3 ABG O2 Saturation ABG Base Excess ABG Hemoglobin ABG Oxyhemoglobin ABG Sodium ABG Potassium ABG Glucose Oxyhemoglobin Carboxyhemoglobin Sodium 151 H Potassium Chloride Carbon Dioxide 35 H BUN 48 H Creatinine Glucose 152 H POC Glucose 165 H Lactic Acid Calcium Phosphorus Magnesium Ferritin Lactate Dehydrogenase C-Reactive Protein NT-Pro-B Natriuret Pep Total Protein Albumin Triglycerides Arterial Blood Glucose Urine pH Ur Specific [place] Coronavirus (PCR) 03/16/21 03/16/21 03/16/21 04:11 05:26 11:35 WBC RBC Hgb Hct MCV MCHC RDW Plt Count Lymph % (Auto) [place] % (Auto) Lymph # (Auto) [place] # (Auto) Seg Neutrophils % Seg Neuts % (Manual) Lymphocytes % (Manual) Monocytes % (Manual) Nucleated RBC % Seg Neutrophils # Seg Neutrophils # Man Lymphocytes # (Manual) Monocytes # (Manual) PT INR APTT D-Dimer Heparin Anti-Xa Level ABG pH POC ABG pCO2 POC ABG pO2 ABG pO2 ABG HCO3 ABG O2 Saturation ABG Base Excess ABG Hemoglobin ABG Oxyhemoglobin ABG Sodium ABG Potassium ABG Glucose Oxyhemoglobin Carboxyhemoglobin Sodium Potassium Chloride Carbon Dioxide BUN Creatinine Glucose POC Glucose 162 H 187 H Lactic Acid Calcium Phosphorus Magnesium Ferritin Lactate Dehydrogenase C-Reactive Protein NT-Pro-B Natriuret Pep Total Protein Albumin Triglycerides 267 H Arterial Blood Glucose Urine pH Ur Specific [place] Coronavirus (PCR) 03/16/21 03/16/21 03/16/21 17:29 22:25 23:22 WBC RBC Hgb Hct MCV MCHC RDW Plt Count Lymph % (Auto) [place] % (Auto) Lymph # (Auto) [place] # (Auto) Seg Neutrophils % Seg Neuts % (Manual) Lymphocytes % (Manual) Monocytes % (Manual) Nucleated RBC % Seg Neutrophils # Seg Neutrophils # Man Lymphocytes # (Manual) Monocytes # (Manual) PT INR APTT D-Dimer Heparin Anti-Xa Level ABG pH POC ABG pCO2 POC ABG pO2 ABG pO2 ABG HCO3 ABG O2 Saturation ABG Base Excess ABG Hemoglobin ABG Oxyhemoglobin ABG Sodium ABG Potassium ABG Glucose Oxyhemoglobin Carboxyhemoglobin Sodium Potassium Chloride Carbon Dioxide BUN Creatinine Glucose POC Glucose 237 H 165 H 189 H Lactic Acid Calcium Phosphorus Magnesium Ferritin Lactate Dehydrogenase C-Reactive Protein NT-Pro-B Natriuret Pep Total Protein Albumin Triglycerides Arterial Blood Glucose Urine pH Ur Specific [place] Coronavirus (PCR) 03/17/21 03/17/21 03/17/21 04:40 04:40 04:40 WBC 14.1 H RBC Hgb Hct MCV MCHC RDW 15.3 H Plt Count Lymph % (Auto) 12.6 L [place] % (Auto) 11.3 H Lymph # (Auto) [place] # (Auto) 1.6 H Seg Neutrophils % 74.9 H Seg Neuts % (Manual) Lymphocytes % (Manual) Monocytes % (Manual) Nucleated RBC % Seg Neutrophils # 10.5 H Seg Neutrophils # Man Lymphocytes # (Manual) Monocytes # (Manual) PT INR APTT D-Dimer 1359.12 H Heparin Anti-Xa Level ABG pH POC ABG pCO2 POC ABG pO2 ABG pO2 ABG HCO3 ABG O2 Saturation ABG Base Excess ABG Hemoglobin ABG Oxyhemoglobin ABG Sodium ABG Potassium ABG Glucose Oxyhemoglobin Carboxyhemoglobin Sodium 148 H Potassium Chloride 107.5 H Carbon Dioxide 33 H BUN 42 H Creatinine Glucose 183 H POC Glucose Lactic Acid Calcium Phosphorus Magnesium 2.70 H Ferritin Lactate Dehydrogenase C-Reactive Protein NT-Pro-B Natriuret Pep Total Protein Albumin Triglycerides Arterial Blood Glucose Urine pH Ur Specific [place] Coronavirus (PCR) 03/17/21 03/17/21 03/17/21 05:53 11:05 11:51 WBC RBC Hgb Hct MCV MCHC RDW Plt Count Lymph % (Auto) [place] % (Auto) Lymph # (Auto) [place] # (Auto) Seg Neutrophils % Seg Neuts % (Manual) Lymphocytes % (Manual) Monocytes % (Manual) Nucleated RBC % Seg Neutrophils # Seg Neutrophils # Man Lymphocytes # (Manual) Monocytes # (Manual) PT INR APTT D-Dimer Heparin Anti-Xa Level ABG pH POC ABG pCO2 POC ABG pO2 ABG pO2 ABG HCO3 35.7 H ABG O2 Saturation ABG Base Excess 8.7 H ABG Hemoglobin ABG Oxyhemoglobin ABG Sodium ABG Potassium ABG Glucose Oxyhemoglobin 94.2 L Carboxyhemoglobin Sodium Potassium Chloride Carbon Dioxide BUN Creatinine Glucose POC Glucose 176 H 197 H Lactic Acid Calcium Phosphorus Magnesium Ferritin Lactate Dehydrogenase C-Reactive Protein NT-Pro-B Natriuret Pep Total Protein Albumin Triglycerides Arterial Blood Glucose Urine pH Ur Specific [place] Coronavirus (PCR) 03/17/21 03/17/21 03/17/21 16:54 21:10 23:33 WBC RBC Hgb Hct MCV MCHC RDW Plt Count Lymph % (Auto) [place] % (Auto) Lymph # (Auto) [place] # (Auto) Seg Neutrophils % Seg Neuts % (Manual) Lymphocytes % (Manual) Monocytes % (Manual) Nucleated RBC % Seg Neutrophils # Seg Neutrophils # Man Lymphocytes # (Manual) Monocytes # (Manual) PT INR APTT D-Dimer Heparin Anti-Xa Level ABG pH POC ABG pCO2 POC ABG pO2 ABG pO2 ABG HCO3 ABG O2 Saturation ABG Base Excess ABG Hemoglobin ABG Oxyhemoglobin ABG Sodium ABG Potassium ABG Glucose Oxyhemoglobin Carboxyhemoglobin Sodium Potassium Chloride Carbon Dioxide BUN Creatinine Glucose POC Glucose 135 H 160 H 138 H Lactic Acid Calcium Phosphorus Magnesium Ferritin Lactate Dehydrogenase C-Reactive Protein NT-Pro-B Natriuret Pep Total Protein Albumin Triglycerides Arterial Blood Glucose Urine pH Ur Specific [place] Coronavirus (PCR) 03/18/21 03/18/21 03/18/21 04:18 04:50 05:43 WBC RBC Hgb Hct MCV MCHC RDW Plt Count Lymph % (Auto) [place] % (Auto) Lymph # (Auto) [place] # (Auto) Seg Neutrophils % Seg Neuts % (Manual) Lymphocytes % (Manual) Monocytes % (Manual) Nucleated RBC % Seg Neutrophils # Seg Neutrophils # Man Lymphocytes # (Manual) Monocytes # (Manual) PT INR APTT D-Dimer Heparin Anti-Xa Level ABG pH POC ABG pCO2 POC ABG pO2 ABG pO2 59.8 L ABG HCO3 36.5 H ABG O2 Saturation 90.7 L ABG Base Excess 9.4 H ABG Hemoglobin 12.0 L ABG Oxyhemoglobin ABG Sodium ABG Potassium ABG Glucose Oxyhemoglobin 88.9 L Carboxyhemoglobin Sodium Potassium Chloride 107.2 H Carbon Dioxide 34 H BUN 38 H Creatinine 0.7 L Glucose 136 H POC Glucose 128 H Lactic Acid Calcium Phosphorus Magnesium Ferritin Lactate Dehydrogenase C-Reactive Protein NT-Pro-B Natriuret Pep Total Protein Albumin Triglycerides Arterial Blood Glucose Urine pH Ur Specific [place] Coronavirus (PCR) 03/18/21 03/18/21 03/18/21 11:20 17:35 23:35 WBC RBC Hgb Hct MCV MCHC RDW Plt Count Lymph % (Auto) [place] % (Auto) Lymph # (Auto) [place] # (Auto) Seg Neutrophils % Seg Neuts % (Manual) Lymphocytes % (Manual) Monocytes % (Manual) Nucleated RBC % Seg Neutrophils # Seg Neutrophils # Man Lymphocytes # (Manual) Monocytes # (Manual) PT INR APTT D-Dimer Heparin Anti-Xa Level ABG pH POC ABG pCO2 POC ABG pO2 ABG pO2 70.7 L ABG HCO3 33.6 H ABG O2 Saturation ABG Base Excess 8.0 H ABG Hemoglobin ABG Oxyhemoglobin ABG Sodium ABG Potassium ABG Glucose Oxyhemoglobin 93.7 L Carboxyhemoglobin Sodium Potassium Chloride Carbon Dioxide BUN Creatinine Glucose POC Glucose 189 H 144 H Lactic Acid Calcium Phosphorus Magnesium Ferritin Lactate Dehydrogenase C-Reactive Protein NT-Pro-B Natriuret Pep Total Protein Albumin Triglycerides Arterial Blood Glucose Urine pH Ur Specific [place] Coronavirus (PCR) 03/19/21 03/19/21 03/19/21 02:35 04:20 04:20 WBC 14.0 H RBC Hgb Hct MCV MCHC RDW Plt Count Lymph % (Auto) [place] % (Auto) Lymph # (Auto) [place] # (Auto) Seg Neutrophils % Seg Neuts % (Manual) Lymphocytes % (Manual) Monocytes % (Manual) Nucleated RBC % Seg Neutrophils # Seg Neutrophils # Man Lymphocytes # (Manual) Monocytes # (Manual) PT INR APTT D-Dimer Heparin Anti-Xa Level ABG pH POC ABG pCO2 POC ABG pO2 ABG pO2 ABG HCO3 32.0 H ABG O2 Saturation ABG Base Excess 5.2 H ABG Hemoglobin 13.6 L ABG Oxyhemoglobin ABG Sodium ABG Potassium ABG Glucose Oxyhemoglobin 94.6 L Carboxyhemoglobin Sodium 146 H Potassium Chloride 109.3 H Carbon Dioxide BUN 36 H Creatinine Glucose 203 H POC Glucose Lactic Acid Calcium Phosphorus Magnesium Ferritin Lactate Dehydrogenase C-Reactive Protein NT-Pro-B Natriuret Pep Total Protein Albumin Triglycerides 254 H Arterial Blood Glucose Urine pH Ur Specific [place] Coronavirus (PCR) 03/19/21 03/19/21 03/19/21 05:45 11:36 23:51 WBC RBC Hgb Hct MCV MCHC RDW Plt Count Lymph % (Auto) [place] % (Auto) Lymph # (Auto) [place] # (Auto) Seg Neutrophils % Seg Neuts % (Manual) Lymphocytes % (Manual) Monocytes % (Manual) Nucleated RBC % Seg Neutrophils # Seg Neutrophils # Man Lymphocytes # (Manual) Monocytes # (Manual) PT INR APTT D-Dimer Heparin Anti-Xa Level ABG pH POC ABG pCO2 POC ABG pO2 ABG pO2 ABG HCO3 ABG O2 Saturation ABG Base Excess ABG Hemoglobin ABG Oxyhemoglobin ABG Sodium ABG Potassium ABG Glucose Oxyhemoglobin Carboxyhemoglobin Sodium Potassium Chloride Carbon Dioxide BUN Creatinine Glucose POC Glucose 164 H 172 H 140 H Lactic Acid Calcium Phosphorus Magnesium Ferritin Lactate Dehydrogenase C-Reactive Protein NT-Pro-B Natriuret Pep Total Protein Albumin Triglycerides Arterial Blood Glucose Urine pH Ur Specific [place] Coronavirus (PCR) 03/20/21 03/20/21 03/20/21 03:29 04:45 04:45 WBC RBC Hgb Hct MCV 95 H MCHC RDW 15.7 H Plt Count Lymph % (Auto) [place] % (Auto) Lymph # (Auto) [place] # (Auto) Seg Neutrophils % Seg Neuts % (Manual) Lymphocytes % (Manual) Monocytes % (Manual) Nucleated RBC % Seg Neutrophils # Seg Neutrophils # Man Lymphocytes # (Manual) Monocytes # (Manual) PT INR APTT D-Dimer Heparin Anti-Xa Level ABG pH 7.349 L POC ABG pCO2 POC ABG pO2 ABG pO2 ABG HCO3 33.7 H ABG O2 Saturation ABG Base Excess 6.4 H ABG Hemoglobin 11.8 L ABG Oxyhemoglobin ABG Sodium ABG Potassium ABG Glucose Oxyhemoglobin 93.9 L Carboxyhemoglobin Sodium 146 H Potassium 5.5 H Chloride 111.1 H Carbon Dioxide BUN 34 H Creatinine 0.7 L Glucose 145 H POC Glucose Lactic Acid Calcium Phosphorus Magnesium 2.50 H Ferritin Lactate Dehydrogenase C-Reactive Protein NT-Pro-B Natriuret Pep Total Protein Albumin Triglycerides Arterial Blood Glucose Urine pH Ur Specific [place] Coronavirus (PCR) 03/20/21 03/20/21 03/20/21 05:41 09:08 11:54 WBC RBC Hgb Hct MCV MCHC RDW Plt Count Lymph % (Auto) [place] % (Auto) Lymph # (Auto) [place] # (Auto) Seg Neutrophils % Seg Neuts % (Manual) Lymphocytes % (Manual) Monocytes % (Manual) Nucleated RBC % Seg Neutrophils # Seg Neutrophils # Man Lymphocytes # (Manual) Monocytes # (Manual) PT INR APTT D-Dimer Heparin Anti-Xa Level ABG pH POC ABG pCO2 POC ABG pO2 ABG pO2 ABG HCO3 ABG O2 Saturation ABG Base Excess ABG Hemoglobin ABG Oxyhemoglobin ABG Sodium ABG Potassium ABG Glucose Oxyhemoglobin Carboxyhemoglobin Sodium Potassium Chloride Carbon Dioxide BUN Creatinine Glucose POC Glucose 108 H 132 H 162 H Lactic Acid Calcium Phosphorus Magnesium Ferritin Lactate Dehydrogenase C-Reactive Protein NT-Pro-B Natriuret Pep Total Protein Albumin Triglycerides Arterial Blood Glucose Urine pH Ur Specific [place] Coronavirus (PCR) 03/20/21 03/21/21 03/21/21 17:28 00:31 04:44 WBC RBC Hgb Hct MCV MCHC RDW Plt Count Lymph % (Auto) [place] % (Auto) Lymph # (Auto) [place] # (Auto) Seg Neutrophils % Seg Neuts % (Manual) Lymphocytes % (Manual) Monocytes % (Manual) Nucleated RBC % Seg Neutrophils # Seg Neutrophils # Man Lymphocytes # (Manual) Monocytes # (Manual) PT INR APTT D-Dimer Heparin Anti-Xa Level ABG pH POC ABG pCO2 POC ABG pO2 ABG pO2 ABG HCO3 ABG O2 Saturation ABG Base Excess ABG Hemoglobin ABG Oxyhemoglobin ABG Sodium ABG Potassium ABG Glucose Oxyhemoglobin Carboxyhemoglobin Sodium Potassium Chloride 108.3 H Carbon Dioxide BUN 30 H Creatinine 0.7 L Glucose POC Glucose 160 H 122 H Lactic Acid Calcium Phosphorus Magnesium Ferritin Lactate Dehydrogenase C-Reactive Protein NT-Pro-B Natriuret Pep Total Protein Albumin Triglycerides Arterial Blood Glucose Urine pH Ur Specific [place] Coronavirus (PCR) 03/21/21 03/21/21 03/21/21 09:18 10:09 13:20 WBC RBC Hgb Hct MCV MCHC RDW Plt Count Lymph % (Auto) [place] % (Auto) Lymph # (Auto) [place] # (Auto) Seg Neutrophils % Seg Neuts % (Manual) Lymphocytes % (Manual) Monocytes % (Manual) Nucleated RBC % Seg Neutrophils # Seg Neutrophils # Man Lymphocytes # (Manual) Monocytes # (Manual) PT INR APTT D-Dimer Heparin Anti-Xa Level ABG pH POC ABG pCO2 POC ABG pO2 ABG pO2 60.7 L ABG HCO3 30.6 H ABG O2 Saturation 93.6 L ABG Base Excess 5.3 H ABG Hemoglobin ABG Oxyhemoglobin ABG Sodium ABG Potassium ABG Glucose Oxyhemoglobin 91.7 L Carboxyhemoglobin Sodium Potassium Chloride Carbon Dioxide BUN Creatinine Glucose POC Glucose 169 H 122 H Lactic Acid Calcium Phosphorus Magnesium Ferritin Lactate Dehydrogenase C-Reactive Protein NT-Pro-B Natriuret Pep Total Protein Albumin Triglycerides Arterial Blood Glucose Urine pH Ur Specific [place] Coronavirus (PCR) 03/21/21 03/21/21 03/21/21 17:25 22:41 23:52 WBC RBC Hgb Hct MCV MCHC RDW Plt Count Lymph % (Auto) [place] % (Auto) Lymph # (Auto) [place] # (Auto) Seg Neutrophils % Seg Neuts % (Manual) Lymphocytes % (Manual) Monocytes % (Manual) Nucleated RBC % Seg Neutrophils # Seg Neutrophils # Man Lymphocytes # (Manual) Monocytes # (Manual) PT INR APTT D-Dimer Heparin Anti-Xa Level ABG pH POC ABG pCO2 POC ABG pO2 ABG pO2 ABG HCO3 ABG O2 Saturation ABG Base Excess ABG Hemoglobin ABG Oxyhemoglobin ABG Sodium ABG Potassium ABG Glucose Oxyhemoglobin Carboxyhemoglobin Sodium Potassium Chloride Carbon Dioxide BUN Creatinine Glucose POC Glucose 121 H 139 H 140 H Lactic Acid Calcium Phosphorus Magnesium Ferritin Lactate Dehydrogenase C-Reactive Protein NT-Pro-B Natriuret Pep Total Protein Albumin Triglycerides Arterial Blood Glucose Urine pH Ur Specific [place] Coronavirus (PCR) 03/22/21 03/22/21 03/22/21 05:58 07:26 07:26 WBC RBC Hgb Hct MCV MCHC 31 L RDW 16.1 H Plt Count Lymph % (Auto) [place] % (Auto) Lymph # (Auto) [place] # (Auto) Seg Neutrophils % Seg Neuts % (Manual) Lymphocytes % (Manual) Monocytes % (Manual) Nucleated RBC % Seg Neutrophils # Seg Neutrophils # Man Lymphocytes # (Manual) Monocytes # (Manual) PT INR APTT D-Dimer Heparin Anti-Xa Level ABG pH POC ABG pCO2 POC ABG pO2 ABG pO2 ABG HCO3 ABG O2 Saturation ABG Base Excess ABG Hemoglobin ABG Oxyhemoglobin ABG Sodium ABG Potassium ABG Glucose Oxyhemoglobin Carboxyhemoglobin Sodium Potassium Chloride 108.5 H Carbon Dioxide BUN 44 H Creatinine Glucose 120 H POC Glucose 131 H Lactic Acid Calcium Phosphorus 5.80 H Magnesium 2.80 H Ferritin Lactate Dehydrogenase C-Reactive Protein NT-Pro-B Natriuret Pep Total Protein Albumin Triglycerides 305 H Arterial Blood Glucose Urine pH Ur Specific [place] Coronavirus (PCR) 03/22/21 03/22/21 03/22/21 09:38 11:15 16:01 WBC RBC Hgb Hct MCV MCHC RDW Plt Count Lymph % (Auto) [place] % (Auto) Lymph # (Auto) [place] # (Auto) Seg Neutrophils % Seg Neuts % (Manual) Lymphocytes % (Manual) Monocytes % (Manual) Nucleated RBC % Seg Neutrophils # Seg Neutrophils # Man Lymphocytes # (Manual) Monocytes # (Manual) PT INR APTT D-Dimer Heparin Anti-Xa Level ABG pH POC ABG pCO2 POC ABG pO2 ABG pO2 70.0 L ABG HCO3 30.0 H ABG O2 Saturation 94.6 L ABG Base Excess 3.6 H ABG Hemoglobin 13.5 L ABG Oxyhemoglobin ABG Sodium ABG Potassium ABG Glucose Oxyhemoglobin 92.5 L Carboxyhemoglobin Sodium Potassium Chloride Carbon Dioxide BUN Creatinine Glucose POC Glucose 186 H 148 H Lactic Acid Calcium Phosphorus Magnesium Ferritin Lactate Dehydrogenase C-Reactive Protein NT-Pro-B Natriuret Pep Total Protein Albumin Triglycerides Arterial Blood Glucose Urine pH Ur Specific [place] Coronavirus (PCR) 03/22/21 03/22/21 03/23/21 21:13 23:48 07:04 WBC 11.7 H RBC Hgb Hct MCV 95 H MCHC RDW 16.1 H Plt Count Lymph % (Auto) [place] % (Auto) Lymph # (Auto) [place] # (Auto) Seg Neutrophils % Seg Neuts % (Manual) Lymphocytes % (Manual) Monocytes % (Manual) Nucleated RBC % Seg Neutrophils # Seg Neutrophils # Man Lymphocytes # (Manual) Monocytes # (Manual) PT INR APTT D-Dimer Heparin Anti-Xa Level ABG pH POC ABG pCO2 POC ABG pO2 ABG pO2 ABG HCO3 ABG O2 Saturation ABG Base Excess ABG Hemoglobin ABG Oxyhemoglobin ABG Sodium ABG Potassium ABG Glucose Oxyhemoglobin Carboxyhemoglobin Sodium Potassium Chloride Carbon Dioxide BUN Creatinine Glucose POC Glucose 121 H 114 H Lactic Acid Calcium Phosphorus Magnesium Ferritin Lactate Dehydrogenase C-Reactive Protein NT-Pro-B Natriuret Pep Total Protein Albumin Triglycerides Arterial Blood Glucose Urine pH Ur Specific [place] Coronavirus (PCR) 03/23/21 03/23/21 03/23/21 07:04 08:35 11:19 WBC RBC Hgb Hct MCV MCHC RDW Plt Count Lymph % (Auto) [place] % (Auto) Lymph # (Auto) [place] # (Auto) Seg Neutrophils % Seg Neuts % (Manual) Lymphocytes % (Manual) Monocytes % (Manual) Nucleated RBC % Seg Neutrophils # Seg Neutrophils # Man Lymphocytes # (Manual) Monocytes # (Manual) PT INR APTT D-Dimer Heparin Anti-Xa Level ABG pH 7.345 L POC ABG pCO2 POC ABG pO2 ABG pO2 167.9 H ABG HCO3 32.2 H ABG O2 Saturation ABG Base Excess 4.8 H ABG Hemoglobin 13.4 L ABG Oxyhemoglobin ABG Sodium ABG Potassium ABG Glucose Oxyhemoglobin Carboxyhemoglobin Sodium 148 H Potassium Chloride 111.3 H Carbon Dioxide 31 H BUN 31 H Creatinine Glucose 131 H POC Glucose 165 H Lactic Acid Calcium Phosphorus Magnesium 2.50 H Ferritin Lactate Dehydrogenase C-Reactive Protein NT-Pro-B Natriuret Pep Total Protein Albumin Triglycerides Arterial Blood Glucose Urine pH Ur Specific [place] Coronavirus (PCR) 03/23/21 03/23/21 03/24/21 16:48 20:52 00:07 WBC RBC Hgb Hct MCV MCHC RDW Plt Count Lymph % (Auto) [place] % (Auto) Lymph # (Auto) [place] # (Auto) Seg Neutrophils % Seg Neuts % (Manual) Lymphocytes % (Manual) Monocytes % (Manual) Nucleated RBC % Seg Neutrophils # Seg Neutrophils # Man Lymphocytes # (Manual) Monocytes # (Manual) PT INR APTT D-Dimer Heparin Anti-Xa Level ABG pH POC ABG pCO2 POC ABG pO2 ABG pO2 ABG HCO3 ABG O2 Saturation ABG Base Excess ABG Hemoglobin ABG Oxyhemoglobin ABG Sodium ABG Potassium ABG Glucose Oxyhemoglobin Carboxyhemoglobin Sodium Potassium Chloride Carbon Dioxide BUN Creatinine Glucose POC Glucose 160 H 127 H 147 H Lactic Acid Calcium Phosphorus Magnesium Ferritin Lactate Dehydrogenase C-Reactive Protein NT-Pro-B Natriuret Pep Total Protein Albumin Triglycerides Arterial Blood Glucose Urine pH Ur Specific [place] Coronavirus (PCR) 03/24/21 03/24/21 03/24/21 04:34 04:34 05:20 WBC 13.3 H RBC Hgb Hct MCV MCHC 31 L RDW 16.1 H Plt Count Lymph % (Auto) [place] % (Auto) Lymph # (Auto) [place] # (Auto) Seg Neutrophils % Seg Neuts % (Manual) Lymphocytes % (Manual) Monocytes % (Manual) Nucleated RBC % Seg Neutrophils # Seg Neutrophils # Man Lymphocytes # (Manual) Monocytes # (Manual) PT INR APTT D-Dimer Heparin Anti-Xa Level ABG pH POC ABG pCO2 POC ABG pO2 ABG pO2 ABG HCO3 ABG O2 Saturation ABG Base Excess ABG Hemoglobin ABG Oxyhemoglobin ABG Sodium ABG Potassium ABG Glucose Oxyhemoglobin Carboxyhemoglobin Sodium Potassium 5.2 H Chloride Carbon Dioxide BUN 28 H Creatinine 0.7 L Glucose 152 H POC Glucose 141 H Lactic Acid Calcium Phosphorus Magnesium Ferritin Lactate Dehydrogenase C-Reactive Protein NT-Pro-B Natriuret Pep Total Protein Albumin Triglycerides Arterial Blood Glucose Urine pH Ur Specific [place] Coronavirus (PCR) 03/24/21 03/24/21 03/24/21 09:40 11:38 16:45 WBC RBC Hgb Hct MCV MCHC RDW Plt Count Lymph % (Auto) [place] % (Auto) Lymph # (Auto) [place] # (Auto) Seg Neutrophils % Seg Neuts % (Manual) Lymphocytes % (Manual) Monocytes % (Manual) Nucleated RBC % Seg Neutrophils # Seg Neutrophils # Man Lymphocytes # (Manual) Monocytes # (Manual) PT INR APTT D-Dimer Heparin Anti-Xa Level ABG pH POC ABG pCO2 POC ABG pO2 ABG pO2 ABG HCO3 ABG O2 Saturation ABG Base Excess ABG Hemoglobin ABG Oxyhemoglobin ABG Sodium ABG Potassium ABG Glucose Oxyhemoglobin Carboxyhemoglobin Sodium Potassium Chloride Carbon Dioxide BUN Creatinine Glucose POC Glucose 126 H 136 H 118 H Lactic Acid Calcium Phosphorus Magnesium Ferritin Lactate Dehydrogenase C-Reactive Protein NT-Pro-B Natriuret Pep Total Protein Albumin Triglycerides Arterial Blood Glucose Urine pH Ur Specific [place] Coronavirus (PCR) 03/24/21 03/24/21 03/25/21 21:03 23:49 04:32 WBC RBC Hgb Hct MCV MCHC RDW 16.1 H Plt Count 121 L Lymph % (Auto) [place] % (Auto) Lymph # (Auto) [place] # (Auto) Seg Neutrophils % Seg Neuts % (Manual) Lymphocytes % (Manual) Monocytes % (Manual) Nucleated RBC % Seg Neutrophils # Seg Neutrophils # Man Lymphocytes # (Manual) Monocytes # (Manual) PT INR APTT D-Dimer Heparin Anti-Xa Level ABG pH POC ABG pCO2 POC ABG pO2 ABG pO2 ABG HCO3 ABG O2 Saturation ABG Base Excess ABG Hemoglobin ABG Oxyhemoglobin ABG Sodium ABG Potassium ABG Glucose Oxyhemoglobin Carboxyhemoglobin Sodium Potassium Chloride Carbon Dioxide BUN Creatinine Glucose POC Glucose 116 H 125 H Lactic Acid Calcium Phosphorus Magnesium Ferritin Lactate Dehydrogenase C-Reactive Protein NT-Pro-B Natriuret Pep Total Protein Albumin Triglycerides Arterial Blood Glucose Urine pH Ur Specific [place] Coronavirus (PCR) 03/25/21 03/25/21 03/25/21 04:32 05:21 09:29 WBC RBC Hgb Hct MCV MCHC RDW Plt Count Lymph % (Auto) [place] % (Auto) Lymph # (Auto) [place] # (Auto) Seg Neutrophils % Seg Neuts % (Manual) Lymphocytes % (Manual) Monocytes % (Manual) Nucleated RBC % Seg Neutrophils # Seg Neutrophils # Man Lymphocytes # (Manual) Monocytes # (Manual) PT INR APTT D-Dimer Heparin Anti-Xa Level ABG pH POC ABG pCO2 POC ABG pO2 ABG pO2 ABG HCO3 ABG O2 Saturation ABG Base Excess ABG Hemoglobin ABG Oxyhemoglobin ABG Sodium ABG Potassium ABG Glucose Oxyhemoglobin Carboxyhemoglobin Sodium 135 L D Potassium Chloride Carbon Dioxide BUN 25 H Creatinine 0.7 L Glucose 168 H POC Glucose 149 H 115 H Lactic Acid Calcium Phosphorus Magnesium Ferritin Lactate Dehydrogenase C-Reactive Protein NT-Pro-B Natriuret Pep Total Protein Albumin Triglycerides Arterial Blood Glucose Urine pH Ur Specific [place] Coronavirus (PCR) 03/25/21 03/25/21 03/25/21 12:26 12:35 23:53 WBC RBC Hgb Hct MCV MCHC RDW Plt Count Lymph % (Auto) [place] % (Auto) Lymph # (Auto) [place] # (Auto) Seg Neutrophils % Seg Neuts % (Manual) Lymphocytes % (Manual) Monocytes % (Manual) Nucleated RBC % Seg Neutrophils # Seg Neutrophils # Man Lymphocytes # (Manual) Monocytes # (Manual) PT INR APTT D-Dimer Heparin Anti-Xa Level ABG pH POC ABG pCO2 POC ABG pO2 ABG pO2 100.5 H ABG HCO3 33.6 H ABG O2 Saturation ABG Base Excess 6.4 H ABG Hemoglobin 12.0 L ABG Oxyhemoglobin ABG Sodium ABG Potassium ABG Glucose Oxyhemoglobin Carboxyhemoglobin Sodium Potassium Chloride Carbon Dioxide BUN Creatinine Glucose POC Glucose 108 H 137 H Lactic Acid Calcium Phosphorus Magnesium Ferritin Lactate Dehydrogenase C-Reactive Protein NT-Pro-B Natriuret Pep Total Protein Albumin Triglycerides Arterial Blood Glucose Urine pH Ur Specific [place] Coronavirus (PCR) 03/26/21 03/26/21 03/26/21 05:14 07:09 07:09 WBC RBC Hgb Hct MCV MCHC RDW 16.5 H Plt Count 139 L Lymph % (Auto) [place] % (Auto) Lymph # (Auto) [place] # (Auto) Seg Neutrophils % Seg Neuts % (Manual) Lymphocytes % (Manual) Monocytes % (Manual) Nucleated RBC % Seg Neutrophils # Seg Neutrophils # Man Lymphocytes # (Manual) Monocytes # (Manual) PT INR APTT D-Dimer Heparin Anti-Xa Level ABG pH POC ABG pCO2 POC ABG pO2 ABG pO2 ABG HCO3 ABG O2 Saturation ABG Base Excess ABG Hemoglobin ABG Oxyhemoglobin ABG Sodium ABG Potassium ABG Glucose Oxyhemoglobin Carboxyhemoglobin Sodium Potassium Chloride Carbon Dioxide BUN 22 H Creatinine 0.7 L Glucose 108 H POC Glucose 116 H Lactic Acid Calcium Phosphorus Magnesium Ferritin Lactate Dehydrogenase C-Reactive Protein NT-Pro-B Natriuret Pep Total Protein Albumin Triglycerides Arterial Blood Glucose Urine pH Ur Specific [place] Coronavirus (PCR) 03/26/21 03/26/21 03/26/21 09:51 11:15 16:59 WBC RBC Hgb Hct MCV MCHC RDW Plt Count Lymph % (Auto) [place] % (Auto) Lymph # (Auto) [place] # (Auto) Seg Neutrophils % Seg Neuts % (Manual) Lymphocytes % (Manual) Monocytes % (Manual) Nucleated RBC % Seg Neutrophils # Seg Neutrophils # Man Lymphocytes # (Manual) Monocytes # (Manual) PT INR APTT D-Dimer Heparin Anti-Xa Level ABG pH POC ABG pCO2 POC ABG pO2 ABG pO2 ABG HCO3 ABG O2 Saturation ABG Base Excess ABG Hemoglobin ABG Oxyhemoglobin ABG Sodium ABG Potassium ABG Glucose Oxyhemoglobin Carboxyhemoglobin Sodium Potassium Chloride Carbon Dioxide BUN Creatinine Glucose POC Glucose 107 H 119 H 174 H Lactic Acid Calcium Phosphorus Magnesium Ferritin Lactate Dehydrogenase C-Reactive Protein NT-Pro-B Natriuret Pep Total Protein Albumin Triglycerides Arterial Blood Glucose Urine pH Ur Specific [place] Coronavirus (PCR) 03/26/21 03/27/21 03/27/21 22:18 07:08 10:28 WBC RBC Hgb Hct MCV 95 H MCHC RDW 16.2 H Plt Count 134 L Lymph % (Auto) [place] % (Auto) Lymph # (Auto) [place] # (Auto) Seg Neutrophils % Seg Neuts % (Manual) Lymphocytes % (Manual) Monocytes % (Manual) Nucleated RBC % Seg Neutrophils # Seg Neutrophils # Man Lymphocytes # (Manual) Monocytes # (Manual) PT INR APTT D-Dimer Heparin Anti-Xa Level ABG pH POC ABG pCO2 POC ABG pO2 ABG pO2 ABG HCO3 ABG O2 Saturation ABG Base Excess ABG Hemoglobin ABG Oxyhemoglobin ABG Sodium ABG Potassium ABG Glucose Oxyhemoglobin Carboxyhemoglobin Sodium Potassium Chloride Carbon Dioxide BUN Creatinine Glucose POC Glucose 107 H 52 L Lactic Acid Calcium Phosphorus Magnesium Ferritin Lactate Dehydrogenase C-Reactive Protein NT-Pro-B Natriuret Pep Total Protein Albumin Triglycerides Arterial Blood Glucose Urine pH Ur Specific [place] Coronavirus (PCR) 03/27/21 03/27/21 03/27/21 10:28 11:45 17:39 WBC RBC Hgb Hct MCV MCHC RDW Plt Count Lymph % (Auto) [place] % (Auto) Lymph # (Auto) [place] # (Auto) Seg Neutrophils % Seg Neuts % (Manual) Lymphocytes % (Manual) Monocytes % (Manual) Nucleated RBC % Seg Neutrophils # Seg Neutrophils # Man Lymphocytes # (Manual) Monocytes # (Manual) PT INR APTT D-Dimer Heparin Anti-Xa Level ABG pH POC ABG pCO2 POC ABG pO2 ABG pO2 ABG HCO3 ABG O2 Saturation ABG Base Excess ABG Hemoglobin ABG Oxyhemoglobin ABG Sodium ABG Potassium ABG Glucose Oxyhemoglobin Carboxyhemoglobin Sodium 136 L Potassium Chloride Carbon Dioxide BUN Creatinine 0.7 L Glucose 150 H POC Glucose 121 H 165 H Lactic Acid Calcium Phosphorus Magnesium Ferritin Lactate Dehydrogenase C-Reactive Protein NT-Pro-B Natriuret Pep Total Protein Albumin Triglycerides Arterial Blood Glucose Urine pH Ur Specific [place] Coronavirus (PCR) 03/28/21 03/28/21 03/28/21 07:14 11:42 18:22 WBC RBC Hgb Hct MCV MCHC RDW 16.4 H Plt Count Lymph % (Auto) [place] % (Auto) Lymph # (Auto) [place] # (Auto) Seg Neutrophils % Seg Neuts % (Manual) Lymphocytes % (Manual) Monocytes % (Manual) Nucleated RBC % Seg Neutrophils # Seg Neutrophils # Man Lymphocytes # (Manual) Monocytes # (Manual) PT INR APTT D-Dimer Heparin Anti-Xa Level ABG pH POC ABG pCO2 POC ABG pO2 ABG pO2 ABG HCO3 ABG O2 Saturation ABG Base Excess ABG Hemoglobin ABG Oxyhemoglobin ABG Sodium ABG Potassium ABG Glucose Oxyhemoglobin Carboxyhemoglobin Sodium Potassium Chloride Carbon Dioxide BUN Creatinine Glucose POC Glucose 145 H 169 H Lactic Acid Calcium Phosphorus Magnesium Ferritin Lactate Dehydrogenase C-Reactive Protein NT-Pro-B Natriuret Pep Total Protein Albumin Triglycerides Arterial Blood Glucose Urine pH Ur Specific [place] Coronavirus (PCR) 03/28/21 03/29/21 03/29/21 23:39 04:50 04:50 WBC RBC Hgb 11.0 L Hct 34.9 L MCV MCHC RDW 15.9 H Plt Count Lymph % (Auto) [place] % (Auto) Lymph # (Auto) [place] # (Auto) Seg Neutrophils % Seg Neuts % (Manual) Lymphocytes % (Manual) Monocytes % (Manual) Nucleated RBC % Seg Neutrophils # Seg Neutrophils # Man Lymphocytes # (Manual) Monocytes # (Manual) PT INR APTT D-Dimer Heparin Anti-Xa Level ABG pH POC ABG pCO2 POC ABG pO2 ABG pO2 ABG HCO3 ABG O2 Saturation ABG Base Excess ABG Hemoglobin ABG Oxyhemoglobin ABG Sodium ABG Potassium ABG Glucose Oxyhemoglobin Carboxyhemoglobin Sodium Potassium Chloride Carbon Dioxide 34 H BUN Creatinine 0.6 L Glucose 152 H POC Glucose 139 H Lactic Acid Calcium Phosphorus Magnesium Ferritin Lactate Dehydrogenase C-Reactive Protein NT-Pro-B Natriuret Pep Total Protein Albumin Triglycerides Arterial Blood Glucose Urine pH Ur Specific [place] Coronavirus (PCR) 03/29/21 03/29/21 03/29/21 05:25 11:34 18:02 WBC RBC Hgb Hct MCV MCHC RDW Plt Count Lymph % (Auto) [place] % (Auto) Lymph # (Auto) [place] # (Auto) Seg Neutrophils % Seg Neuts % (Manual) Lymphocytes % (Manual) Monocytes % (Manual) Nucleated RBC % Seg Neutrophils # Seg Neutrophils # Man Lymphocytes # (Manual) Monocytes # (Manual) PT INR APTT D-Dimer Heparin Anti-Xa Level ABG pH POC ABG pCO2 POC ABG pO2 ABG pO2 ABG HCO3 ABG O2 Saturation ABG Base Excess ABG Hemoglobin ABG Oxyhemoglobin ABG Sodium ABG Potassium ABG Glucose Oxyhemoglobin Carboxyhemoglobin Sodium Potassium Chloride Carbon Dioxide BUN Creatinine Glucose POC Glucose 127 H 169 H 173 H Lactic Acid Calcium Phosphorus Magnesium Ferritin Lactate Dehydrogenase C-Reactive Protein NT-Pro-B Natriuret Pep Total Protein Albumin Triglycerides Arterial Blood Glucose Urine pH Ur Specific [place] Coronavirus (PCR) 03/29/21 03/30/21 03/30/21 21:42 00:01 05:36 WBC RBC Hgb Hct MCV MCHC RDW 16.7 H Plt Count Lymph % (Auto) [place] % (Auto) Lymph # (Auto) [place] # (Auto) Seg Neutrophils % Seg Neuts % (Manual) Lymphocytes % (Manual) Monocytes % (Manual) Nucleated RBC % Seg Neutrophils # Seg Neutrophils # Man Lymphocytes # (Manual) Monocytes # (Manual) PT INR APTT D-Dimer Heparin Anti-Xa Level ABG pH POC ABG pCO2 POC ABG pO2 ABG pO2 ABG HCO3 ABG O2 Saturation ABG Base Excess ABG Hemoglobin ABG Oxyhemoglobin ABG Sodium ABG Potassium ABG Glucose Oxyhemoglobin Carboxyhemoglobin Sodium Potassium Chloride Carbon Dioxide BUN Creatinine Glucose POC Glucose 184 H 161 H Lactic Acid Calcium Phosphorus Magnesium Ferritin Lactate Dehydrogenase C-Reactive Protein NT-Pro-B Natriuret Pep Total Protein Albumin Triglycerides Arterial Blood Glucose Urine pH Ur Specific [place] Coronavirus (PCR) 03/30/21 03/30/21 03/30/21 05:36 06:03 11:32 WBC RBC Hgb Hct MCV MCHC RDW Plt Count Lymph % (Auto) [place] % (Auto) Lymph # (Auto) [place] # (Auto) Seg Neutrophils % Seg Neuts % (Manual) Lymphocytes % (Manual) Monocytes % (Manual) Nucleated RBC % Seg Neutrophils # Seg Neutrophils # Man Lymphocytes # (Manual) Monocytes # (Manual) PT INR APTT D-Dimer Heparin Anti-Xa Level ABG pH POC ABG pCO2 POC ABG pO2 ABG pO2 ABG HCO3 ABG O2 Saturation ABG Base Excess ABG Hemoglobin ABG Oxyhemoglobin ABG Sodium ABG Potassium ABG Glucose Oxyhemoglobin Carboxyhemoglobin Sodium Potassium Chloride Carbon Dioxide BUN Creatinine 0.5 L Glucose 127 H POC Glucose 130 H 183 H Lactic Acid Calcium Phosphorus Magnesium Ferritin Lactate Dehydrogenase C-Reactive Protein NT-Pro-B Natriuret Pep Total Protein Albumin Triglycerides Arterial Blood Glucose Urine pH Ur Specific [place] Coronavirus (PCR) 03/30/21 03/30/21 03/30/21 15:00 16:23 21:07 WBC RBC Hgb Hct MCV MCHC RDW Plt Count Lymph % (Auto) [place] % (Auto) Lymph # (Auto) [place] # (Auto) Seg Neutrophils % Seg Neuts % (Manual) Lymphocytes % (Manual) Monocytes % (Manual) Nucleated RBC % Seg Neutrophils # Seg Neutrophils # Man Lymphocytes # (Manual) Monocytes # (Manual) PT INR APTT D-Dimer Heparin Anti-Xa Level ABG pH POC ABG pCO2 POC ABG pO2 ABG pO2 67.2 L ABG HCO3 34.9 H ABG O2 Saturation ABG Base Excess 9.1 H ABG Hemoglobin 11.6 L ABG Oxyhemoglobin ABG Sodium ABG Potassium ABG Glucose Oxyhemoglobin 93.0 L Carboxyhemoglobin Sodium Potassium Chloride Carbon Dioxide BUN Creatinine Glucose POC Glucose 162 H 146 H Lactic Acid Calcium Phosphorus Magnesium Ferritin Lactate Dehydrogenase C-Reactive Protein NT-Pro-B Natriuret Pep Total Protein Albumin Triglycerides Arterial Blood Glucose Urine pH Ur Specific [place] Coronavirus (PCR) 03/30/21 03/31/21 03/31/21 23:23 05:44 11:19 WBC RBC Hgb Hct MCV MCHC RDW Plt Count Lymph % (Auto) [place] % (Auto) Lymph # (Auto) [place] # (Auto) Seg Neutrophils % Seg Neuts % (Manual) Lymphocytes % (Manual) Monocytes % (Manual) Nucleated RBC % Seg Neutrophils # Seg Neutrophils # Man Lymphocytes # (Manual) Monocytes # (Manual) PT INR APTT D-Dimer Heparin Anti-Xa Level ABG pH POC ABG pCO2 POC ABG pO2 ABG pO2 ABG HCO3 ABG O2 Saturation ABG Base Excess ABG Hemoglobin ABG Oxyhemoglobin ABG Sodium ABG Potassium ABG Glucose Oxyhemoglobin Carboxyhemoglobin Sodium Potassium Chloride Carbon Dioxide BUN Creatinine Glucose POC Glucose 138 H 180 H 178 H Lactic Acid Calcium Phosphorus Magnesium Ferritin Lactate Dehydrogenase C-Reactive Protein NT-Pro-B Natriuret Pep Total Protein Albumin Triglycerides Arterial Blood Glucose Urine pH Ur Specific [place] Coronavirus (PCR) 03/31/21 03/31/21 03/31/21 12:50 13:30 16:06 WBC RBC Hgb 11.3 L Hct 35.1 L MCV MCHC RDW 16.5 H Plt Count Lymph % (Auto) 7.6 L [place] % (Auto) 9.5 H Lymph # (Auto) 0.6 L [place] # (Auto) Seg Neutrophils % 78.3 H Seg Neuts % (Manual) Lymphocytes % (Manual) Monocytes % (Manual) Nucleated RBC % Seg Neutrophils # Seg Neutrophils # Man Lymphocytes # (Manual) Monocytes # (Manual) PT INR APTT D-Dimer Heparin Anti-Xa Level ABG pH POC ABG pCO2 POC ABG pO2 ABG pO2 99.4 H ABG HCO3 34.9 H ABG O2 Saturation ABG Base Excess 8.4 H ABG Hemoglobin 11.8 L ABG Oxyhemoglobin ABG Sodium ABG Potassium ABG Glucose Oxyhemoglobin Carboxyhemoglobin Sodium Potassium Chloride Carbon Dioxide BUN Creatinine Glucose POC Glucose 197 H Lactic Acid Calcium Phosphorus Magnesium Ferritin Lactate Dehydrogenase C-Reactive Protein NT-Pro-B Natriuret Pep Total Protein Albumin Triglycerides Arterial Blood Glucose Urine pH Ur Specific [place] Coronavirus (PCR) 03/31/21 04/01/21 04/01/21 20:51 05:37 07:16 WBC RBC 3.39 L Hgb 10.5 L Hct 31.6 L MCV MCHC RDW 16.1 H Plt Count Lymph % (Auto) [place] % (Auto) Lymph # (Auto) [place] # (Auto) Seg Neutrophils % Seg Neuts % (Manual) Lymphocytes % (Manual) Monocytes % (Manual) Nucleated RBC % Seg Neutrophils # Seg Neutrophils # Man Lymphocytes # (Manual) Monocytes # (Manual) PT INR APTT D-Dimer Heparin Anti-Xa Level ABG pH POC ABG pCO2 POC ABG pO2 ABG pO2 ABG HCO3 ABG O2 Saturation ABG Base Excess ABG Hemoglobin ABG Oxyhemoglobin ABG Sodium ABG Potassium ABG Glucose Oxyhemoglobin Carboxyhemoglobin Sodium Potassium Chloride Carbon Dioxide BUN Creatinine Glucose POC Glucose 140 H 128 H Lactic Acid Calcium Phosphorus Magnesium Ferritin Lactate Dehydrogenase C-Reactive Protein NT-Pro-B Natriuret Pep Total Protein Albumin Triglycerides Arterial Blood Glucose Urine pH Ur Specific [place] Coronavirus (PCR) 04/01/21 04/01/21 04/01/21 07:16 11:52 16:56 WBC RBC Hgb Hct MCV MCHC RDW Plt Count Lymph % (Auto) [place] % (Auto) Lymph # (Auto) [place] # (Auto) Seg Neutrophils % Seg Neuts % (Manual) Lymphocytes % (Manual) Monocytes % (Manual) Nucleated RBC % Seg Neutrophils # Seg Neutrophils # Man Lymphocytes # (Manual) Monocytes # (Manual) PT INR APTT D-Dimer Heparin Anti-Xa Level ABG pH POC ABG pCO2 POC ABG pO2 ABG pO2 ABG HCO3 ABG O2 Saturation ABG Base Excess ABG Hemoglobin ABG Oxyhemoglobin ABG Sodium ABG Potassium ABG Glucose Oxyhemoglobin Carboxyhemoglobin Sodium Potassium Chloride Carbon Dioxide BUN Creatinine 0.6 L Glucose 131 H POC Glucose 182 H 179 H Lactic Acid Calcium 8.3 L Phosphorus Magnesium Ferritin Lactate Dehydrogenase C-Reactive Protein NT-Pro-B Natriuret Pep Total Protein Albumin Triglycerides Arterial Blood Glucose Urine pH Ur Specific [place] Coronavirus (PCR) 04/01/21 04/01/21 04/02/21 21:30 23:40 04:26 WBC RBC 3.62 L Hgb 10.8 L Hct 33.9 L MCV MCHC RDW 16.0 H Plt Count Lymph % (Auto) [place] % (Auto) Lymph # (Auto) [place] # (Auto) Seg Neutrophils % Seg Neuts % (Manual) Lymphocytes % (Manual) Monocytes % (Manual) Nucleated RBC % Seg Neutrophils # Seg Neutrophils # Man Lymphocytes # (Manual) Monocytes # (Manual) PT INR APTT D-Dimer Heparin Anti-Xa Level ABG pH POC ABG pCO2 POC ABG pO2 ABG pO2 ABG HCO3 ABG O2 Saturation ABG Base Excess ABG Hemoglobin ABG Oxyhemoglobin ABG Sodium ABG Potassium ABG Glucose Oxyhemoglobin Carboxyhemoglobin Sodium Potassium Chloride Carbon Dioxide BUN Creatinine Glucose POC Glucose 131 H 129 H Lactic Acid Calcium Phosphorus Magnesium Ferritin Lactate Dehydrogenase C-Reactive Protein NT-Pro-B Natriuret Pep Total Protein Albumin Triglycerides Arterial Blood Glucose Urine pH Ur Specific [place] Coronavirus (PCR) 04/02/21 04/02/21 04/02/21 04:26 05:54 11:35 WBC RBC Hgb Hct MCV MCHC RDW Plt Count Lymph % (Auto) [place] % (Auto) Lymph # (Auto) [place] # (Auto) Seg Neutrophils % Seg Neuts % (Manual) Lymphocytes % (Manual) Monocytes % (Manual) Nucleated RBC % Seg Neutrophils # Seg Neutrophils # Man Lymphocytes # (Manual) Monocytes # (Manual) PT INR APTT D-Dimer Heparin Anti-Xa Level ABG pH POC ABG pCO2 POC ABG pO2 ABG pO2 ABG HCO3 ABG O2 Saturation ABG Base Excess ABG Hemoglobin ABG Oxyhemoglobin ABG Sodium ABG Potassium ABG Glucose Oxyhemoglobin Carboxyhemoglobin Sodium 136 L Potassium Chloride Carbon Dioxide BUN Creatinine 0.6 L Glucose 152 H POC Glucose 151 H 178 H Lactic Acid Calcium Phosphorus Magnesium Ferritin Lactate Dehydrogenase C-Reactive Protein NT-Pro-B Natriuret Pep Total Protein Albumin Triglycerides Arterial Blood Glucose Urine pH Ur Specific [place] Coronavirus (PCR) 04/02/21 04/02/21 04/02/21 16:11 21:09 23:38 WBC RBC Hgb Hct MCV MCHC RDW Plt Count Lymph % (Auto) [place] % (Auto) Lymph # (Auto) [place] # (Auto) Seg Neutrophils % Seg Neuts % (Manual) Lymphocytes % (Manual) Monocytes % (Manual) Nucleated RBC % Seg Neutrophils # Seg Neutrophils # Man Lymphocytes # (Manual) Monocytes # (Manual) PT INR APTT D-Dimer Heparin Anti-Xa Level ABG pH POC ABG pCO2 POC ABG pO2 ABG pO2 ABG HCO3 ABG O2 Saturation ABG Base Excess ABG Hemoglobin ABG Oxyhemoglobin ABG Sodium ABG Potassium ABG Glucose Oxyhemoglobin Carboxyhemoglobin Sodium Potassium Chloride Carbon Dioxide BUN Creatinine Glucose POC Glucose 186 H 145 H 152 H Lactic Acid Calcium Phosphorus Magnesium Ferritin Lactate Dehydrogenase C-Reactive Protein NT-Pro-B Natriuret Pep Total Protein Albumin Triglycerides Arterial Blood Glucose Urine pH Ur Specific [place] Coronavirus (PCR) 04/03/21 04/03/21 04/03/21 04:14 04:14 05:27 WBC RBC 3.62 L Hgb 11.0 L Hct 34.0 L MCV MCHC RDW 16.3 H Plt Count Lymph % (Auto) [place] % (Auto) Lymph # (Auto) [place] # (Auto) Seg Neutrophils % Seg Neuts % (Manual) Lymphocytes % (Manual) Monocytes % (Manual) Nucleated RBC % Seg Neutrophils # Seg Neutrophils # Man Lymphocytes # (Manual) Monocytes # (Manual) PT INR APTT D-Dimer Heparin Anti-Xa Level ABG pH POC ABG pCO2 POC ABG pO2 ABG pO2 ABG HCO3 ABG O2 Saturation ABG Base Excess ABG Hemoglobin ABG Oxyhemoglobin ABG Sodium ABG Potassium ABG Glucose Oxyhemoglobin Carboxyhemoglobin Sodium Potassium Chloride Carbon Dioxide 31 H BUN Creatinine 0.6 L Glucose 155 H POC Glucose 165 H Lactic Acid Calcium Phosphorus Magnesium Ferritin Lactate Dehydrogenase C-Reactive Protein NT-Pro-B Natriuret Pep Total Protein Albumin Triglycerides Arterial Blood Glucose Urine pH Ur Specific [place] Coronavirus (PCR) 04/03/21 04/03/21 04/03/21 11:02 16:19 19:45 WBC RBC Hgb Hct MCV MCHC RDW Plt Count Lymph % (Auto) [place] % (Auto) Lymph # (Auto) [place] # (Auto) Seg Neutrophils % Seg Neuts % (Manual) Lymphocytes % (Manual) Monocytes % (Manual) Nucleated RBC % Seg Neutrophils # Seg Neutrophils # Man Lymphocytes # (Manual) Monocytes # (Manual) PT INR APTT D-Dimer Heparin Anti-Xa Level ABG pH POC ABG pCO2 POC ABG pO2 ABG pO2 ABG HCO3 ABG O2 Saturation ABG Base Excess ABG Hemoglobin ABG Oxyhemoglobin ABG Sodium ABG Potassium ABG Glucose Oxyhemoglobin Carboxyhemoglobin Sodium Potassium Chloride Carbon Dioxide BUN Creatinine Glucose POC Glucose 161 H 180 H 136 H Lactic Acid Calcium Phosphorus Magnesium Ferritin Lactate Dehydrogenase C-Reactive Protein NT-Pro-B Natriuret Pep Total Protein Albumin Triglycerides Arterial Blood Glucose Urine pH Ur Specific [place] Coronavirus (PCR) 04/04/21 04/04/21 04/04/21 00:21 04:33 04:33 WBC 13.1 H RBC 3.49 L Hgb 10.3 L Hct 32.7 L MCV MCHC RDW 16.1 H Plt Count Lymph % (Auto) [place] % (Auto) Lymph # (Auto) [place] # (Auto) Seg Neutrophils % Seg Neuts % (Manual) Lymphocytes % (Manual) Monocytes % (Manual) Nucleated RBC % Seg Neutrophils # Seg Neutrophils # Man Lymphocytes # (Manual) Monocytes # (Manual) PT INR APTT D-Dimer Heparin Anti-Xa Level ABG pH POC ABG pCO2 POC ABG pO2 ABG pO2 ABG HCO3 ABG O2 Saturation ABG Base Excess ABG Hemoglobin ABG Oxyhemoglobin ABG Sodium ABG Potassium ABG Glucose Oxyhemoglobin Carboxyhemoglobin Sodium Potassium Chloride Carbon Dioxide 31 H BUN Creatinine 0.4 L Glucose 153 H POC Glucose 140 H Lactic Acid Calcium Phosphorus Magnesium Ferritin Lactate Dehydrogenase C-Reactive Protein NT-Pro-B Natriuret Pep Total Protein Albumin Triglycerides Arterial Blood Glucose Urine pH Ur Specific [place] Coronavirus (PCR) 04/04/21 04/04/21 04/04/21 05:16 11:39 17:22 WBC RBC Hgb Hct MCV MCHC RDW Plt Count Lymph % (Auto) [place] % (Auto) Lymph # (Auto) [place] # (Auto) Seg Neutrophils % Seg Neuts % (Manual) Lymphocytes % (Manual) Monocytes % (Manual) Nucleated RBC % Seg Neutrophils # Seg Neutrophils # Man Lymphocytes # (Manual) Monocytes # (Manual) PT INR APTT D-Dimer Heparin Anti-Xa Level ABG pH POC ABG pCO2 POC ABG pO2 ABG pO2 ABG HCO3 ABG O2 Saturation ABG Base Excess ABG Hemoglobin ABG Oxyhemoglobin ABG Sodium ABG Potassium ABG Glucose Oxyhemoglobin Carboxyhemoglobin Sodium Potassium Chloride Carbon Dioxide BUN Creatinine Glucose POC Glucose 152 H 154 H 198 H Lactic Acid Calcium Phosphorus Magnesium Ferritin Lactate Dehydrogenase C-Reactive Protein NT-Pro-B Natriuret Pep Total Protein Albumin Triglycerides Arterial Blood Glucose Urine pH Ur Specific [place] Coronavirus (PCR) 04/04/21 04/04/21 04/05/21 20:14 23:16 04:15 WBC RBC 3.21 L Hgb 10.0 L Hct 30.3 L MCV MCHC RDW 16.4 H Plt Count Lymph % (Auto) [place] % (Auto) Lymph # (Auto) [place] # (Auto) Seg Neutrophils % Seg Neuts % (Manual) Lymphocytes % (Manual) Monocytes % (Manual) Nucleated RBC % Seg Neutrophils # Seg Neutrophils # Man Lymphocytes # (Manual) Monocytes # (Manual) PT INR APTT D-Dimer Heparin Anti-Xa Level ABG pH POC ABG pCO2 POC ABG pO2 ABG pO2 ABG HCO3 ABG O2 Saturation ABG Base Excess ABG Hemoglobin ABG Oxyhemoglobin ABG Sodium ABG Potassium ABG Glucose Oxyhemoglobin Carboxyhemoglobin Sodium Potassium Chloride Carbon Dioxide BUN Creatinine Glucose POC Glucose 161 H 139 H Lactic Acid Calcium Phosphorus Magnesium Ferritin Lactate Dehydrogenase C-Reactive Protein NT-Pro-B Natriuret Pep Total Protein Albumin Triglycerides Arterial Blood Glucose Urine pH Ur Specific [place] Coronavirus (PCR) 04/05/21 04/05/21 04/05/21 04:15 05:34 12:09 WBC RBC Hgb Hct MCV MCHC RDW Plt Count Lymph % (Auto) [place] % (Auto) Lymph # (Auto) [place] # (Auto) Seg Neutrophils % Seg Neuts % (Manual) Lymphocytes % (Manual) Monocytes % (Manual) Nucleated RBC % Seg Neutrophils # Seg Neutrophils # Man Lymphocytes # (Manual) Monocytes # (Manual) PT INR APTT D-Dimer Heparin Anti-Xa Level ABG pH POC ABG pCO2 POC ABG pO2 ABG pO2 ABG HCO3 ABG O2 Saturation ABG Base Excess ABG Hemoglobin ABG Oxyhemoglobin ABG Sodium ABG Potassium ABG Glucose Oxyhemoglobin Carboxyhemoglobin Sodium Potassium Chloride 97.6 L Carbon Dioxide 32 H BUN Creatinine 0.5 L Glucose 147 H POC Glucose 145 H 173 H Lactic Acid Calcium Phosphorus Magnesium Ferritin Lactate Dehydrogenase C-Reactive Protein NT-Pro-B Natriuret Pep Total Protein Albumin Triglycerides Arterial Blood Glucose Urine pH Ur Specific [place] Coronavirus (PCR) 04/05/21 04/05/21 04/05/21 17:35 21:07 23:15 WBC RBC Hgb Hct MCV MCHC RDW Plt Count Lymph % (Auto) [place] % (Auto) Lymph # (Auto) [place] # (Auto) Seg Neutrophils % Seg Neuts % (Manual) Lymphocytes % (Manual) Monocytes % (Manual) Nucleated RBC % Seg Neutrophils # Seg Neutrophils # Man Lymphocytes # (Manual) Monocytes # (Manual) PT INR APTT D-Dimer Heparin Anti-Xa Level ABG pH POC ABG pCO2 POC ABG pO2 ABG pO2 ABG HCO3 ABG O2 Saturation ABG Base Excess ABG Hemoglobin ABG Oxyhemoglobin ABG Sodium ABG Potassium ABG Glucose Oxyhemoglobin Carboxyhemoglobin Sodium Potassium Chloride Carbon Dioxide BUN Creatinine Glucose POC Glucose 143 H 157 H 171 H Lactic Acid Calcium Phosphorus Magnesium Ferritin Lactate Dehydrogenase C-Reactive Protein NT-Pro-B Natriuret Pep Total Protein Albumin Triglycerides Arterial Blood Glucose Urine pH Ur Specific [place] Coronavirus (PCR) 04/06/21 04/06/21 04/06/21 04:49 05:14 11:42 WBC RBC Hgb Hct MCV MCHC RDW Plt Count Lymph % (Auto) [place] % (Auto) Lymph # (Auto) [place] # (Auto) Seg Neutrophils % Seg Neuts % (Manual) Lymphocytes % (Manual) Monocytes % (Manual) Nucleated RBC % Seg Neutrophils # Seg Neutrophils # Man Lymphocytes # (Manual) Monocytes # (Manual) PT INR APTT D-Dimer Heparin Anti-Xa Level ABG pH POC ABG pCO2 57.4 H POC ABG pO2 55.1 L ABG pO2 ABG HCO3 ABG O2 Saturation ABG Base Excess ABG Hemoglobin 11.5 L ABG Oxyhemoglobin 87.5 L ABG Sodium ABG Potassium ABG Glucose Oxyhemoglobin Carboxyhemoglobin Sodium Potassium Chloride Carbon Dioxide BUN Creatinine Glucose POC Glucose 145 H 171 H Lactic Acid Calcium Phosphorus Magnesium Ferritin Lactate Dehydrogenase C-Reactive Protein NT-Pro-B Natriuret Pep Total Protein Albumin Triglycerides Arterial Blood Glucose Urine pH Ur Specific [place] Coronavirus (PCR) 04/06/21 04/06/21 04/06/21 11:50 15:36 15:36 WBC RBC Hgb 10.4 L Hct 32.5 L MCV MCHC RDW Plt Count 444 H Lymph % (Auto) [place] % (Auto) Lymph # (Auto) [place] # (Auto) Seg Neutrophils % Seg Neuts % (Manual) Lymphocytes % (Manual) Monocytes % (Manual) Nucleated RBC % Seg Neutrophils # Seg Neutrophils # Man Lymphocytes # (Manual) Monocytes # (Manual) PT INR APTT 37.1 H D-Dimer Heparin Anti-Xa Level ABG pH 7.341 L POC ABG pCO2 POC ABG pO2 ABG pO2 108.9 H ABG HCO3 38.9 H ABG O2 Saturation ABG Base Excess 10.6 H ABG Hemoglobin 11.5 L ABG Oxyhemoglobin ABG Sodium ABG Potassium ABG Glucose Oxyhemoglobin Carboxyhemoglobin Sodium Potassium Chloride Carbon Dioxide BUN Creatinine Glucose POC Glucose Lactic Acid Calcium Phosphorus Magnesium Ferritin Lactate Dehydrogenase C-Reactive Protein NT-Pro-B Natriuret Pep Total Protein Albumin Triglycerides Arterial Blood Glucose Urine pH Ur Specific [place] Coronavirus (PCR) 04/06/21 04/07/21 04/07/21 17:57 00:30 00:32 WBC RBC Hgb Hct MCV MCHC RDW Plt Count Lymph % (Auto) [place] % (Auto) Lymph # (Auto) [place] # (Auto) Seg Neutrophils % Seg Neuts % (Manual) Lymphocytes % (Manual) Monocytes % (Manual) Nucleated RBC % Seg Neutrophils # Seg Neutrophils # Man Lymphocytes # (Manual) Monocytes # (Manual) PT INR APTT D-Dimer Heparin Anti-Xa Level < 0.10 L ABG pH POC ABG pCO2 POC ABG pO2 ABG pO2 ABG HCO3 ABG O2 Saturation ABG Base Excess ABG Hemoglobin ABG Oxyhemoglobin ABG Sodium ABG Potassium ABG Glucose Oxyhemoglobin Carboxyhemoglobin Sodium Potassium Chloride Carbon Dioxide BUN Creatinine Glucose POC Glucose 151 H 149 H Lactic Acid Calcium Phosphorus Magnesium Ferritin Lactate Dehydrogenase C-Reactive Protein NT-Pro-B Natriuret Pep Total Protein Albumin Triglycerides Arterial Blood Glucose Urine pH Ur Specific [place] Coronavirus (PCR) 04/07/21 04/07/21 04/07/21 05:34 06:08 06:08 WBC RBC 3.20 L Hgb 9.6 L Hct 29.8 L MCV MCHC RDW 16.0 H Plt Count 455 H Lymph % (Auto) [place] % (Auto) Lymph # (Auto) [place] # (Auto) Seg Neutrophils % Seg Neuts % (Manual) Lymphocytes % (Manual) Monocytes % (Manual) Nucleated RBC % Seg Neutrophils # Seg Neutrophils # Man Lymphocytes # (Manual) Monocytes # (Manual) PT INR APTT D-Dimer Heparin Anti-Xa Level ABG pH POC ABG pCO2 POC ABG pO2 ABG pO2 ABG HCO3 ABG O2 Saturation ABG Base Excess ABG Hemoglobin ABG Oxyhemoglobin ABG Sodium ABG Potassium ABG Glucose Oxyhemoglobin Carboxyhemoglobin Sodium Potassium Chloride Carbon Dioxide 35 H BUN Creatinine 0.5 L Glucose 216 H POC Glucose 182 H Lactic Acid Calcium Phosphorus Magnesium Ferritin Lactate Dehydrogenase C-Reactive Protein NT-Pro-B Natriuret Pep Total Protein Albumin Triglycerides Arterial Blood Glucose Urine pH Ur Specific [place] Coronavirus (PCR) 04/07/21 04/07/21 04/07/21 07:55 11:57 17:12 WBC RBC Hgb Hct MCV MCHC RDW Plt Count Lymph % (Auto) [place] % (Auto) Lymph # (Auto) [place] # (Auto) Seg Neutrophils % Seg Neuts % (Manual) Lymphocytes % (Manual) Monocytes % (Manual) Nucleated RBC % Seg Neutrophils # Seg Neutrophils # Man Lymphocytes # (Manual) Monocytes # (Manual) PT INR APTT D-Dimer Heparin Anti-Xa Level < 0.10 L ABG pH POC ABG pCO2 POC ABG pO2 ABG pO2 ABG HCO3 ABG O2 Saturation ABG Base Excess ABG Hemoglobin ABG Oxyhemoglobin ABG Sodium ABG Potassium ABG Glucose Oxyhemoglobin Carboxyhemoglobin Sodium Potassium Chloride Carbon Dioxide BUN Creatinine Glucose POC Glucose 182 H 165 H Lactic Acid Calcium Phosphorus Magnesium Ferritin Lactate Dehydrogenase C-Reactive Protein NT-Pro-B Natriuret Pep Total Protein Albumin Triglycerides Arterial Blood Glucose Urine pH Ur Specific [place] Coronavirus (PCR) 04/07/21 04/08/21 04/08/21 19:55 00:16 03:57 WBC RBC Hgb Hct MCV MCHC RDW Plt Count Lymph % (Auto) [place] % (Auto) Lymph # (Auto) [place] # (Auto) Seg Neutrophils % Seg Neuts % (Manual) Lymphocytes % (Manual) Monocytes % (Manual) Nucleated RBC % Seg Neutrophils # Seg Neutrophils # Man Lymphocytes # (Manual) Monocytes # (Manual) PT INR APTT D-Dimer Heparin Anti-Xa Level < 0.10 L ABG pH POC ABG pCO2 POC ABG pO2 ABG pO2 ABG HCO3 ABG O2 Saturation ABG Base Excess ABG Hemoglobin ABG Oxyhemoglobin ABG Sodium ABG Potassium ABG Glucose Oxyhemoglobin Carboxyhemoglobin Sodium Potassium 5.8 H Chloride 95.5 L Carbon Dioxide 37 H BUN Creatinine 0.5 L Glucose 161 H POC Glucose 175 H Lactic Acid Calcium Phosphorus Magnesium Ferritin Lactate Dehydrogenase C-Reactive Protein NT-Pro-B Natriuret Pep Total Protein Albumin Triglycerides Arterial Blood Glucose Urine pH Ur Specific [place] Coronavirus (PCR) 04/08/21 04/08/21 04/08/21 04:00 05:43 09:26 WBC RBC 3.25 L Hgb 9.9 L Hct 30.8 L MCV 95 H MCHC RDW 16.0 H Plt Count 487 H Lymph % (Auto) [place] % (Auto) Lymph # (Auto) [place] # (Auto) Seg Neutrophils % Seg Neuts % (Manual) Lymphocytes % (Manual) Monocytes % (Manual) Nucleated RBC % Seg Neutrophils # Seg Neutrophils # Man Lymphocytes # (Manual) Monocytes # (Manual) PT INR APTT D-Dimer Heparin Anti-Xa Level ABG pH POC ABG pCO2 POC ABG pO2 ABG pO2 ABG HCO3 ABG O2 Saturation ABG Base Excess ABG Hemoglobin ABG Oxyhemoglobin ABG Sodium ABG Potassium ABG Glucose Oxyhemoglobin Carboxyhemoglobin Sodium Potassium Chloride Carbon Dioxide BUN Creatinine Glucose POC Glucose 162 H 164 H Lactic Acid Calcium Phosphorus Magnesium Ferritin Lactate Dehydrogenase C-Reactive Protein NT-Pro-B Natriuret Pep Total Protein Albumin Triglycerides Arterial Blood Glucose Urine pH Ur Specific [place] Coronavirus (PCR) 04/08/21 04/08/21 04/08/21 11:53 17:19 20:35 WBC RBC Hgb Hct MCV MCHC RDW Plt Count Lymph % (Auto) [place] % (Auto) Lymph # (Auto) [place] # (Auto) Seg Neutrophils % Seg Neuts % (Manual) Lymphocytes % (Manual) Monocytes % (Manual) Nucleated RBC % Seg Neutrophils # Seg Neutrophils # Man Lymphocytes # (Manual) Monocytes # (Manual) PT INR APTT D-Dimer Heparin Anti-Xa Level ABG pH POC ABG pCO2 POC ABG pO2 ABG pO2 ABG HCO3 ABG O2 Saturation ABG Base Excess ABG Hemoglobin ABG Oxyhemoglobin ABG Sodium ABG Potassium ABG Glucose Oxyhemoglobin Carboxyhemoglobin Sodium Potassium Chloride Carbon Dioxide BUN Creatinine Glucose POC Glucose 170 H 157 H 190 H Lactic Acid Calcium Phosphorus Magnesium Ferritin Lactate Dehydrogenase C-Reactive Protein NT-Pro-B Natriuret Pep Total Protein Albumin Triglycerides Arterial Blood Glucose Urine pH Ur Specific [place] Coronavirus (PCR) 04/08/21 04/09/21 04/09/21 23:52 04:21 04:21 WBC 11.4 H RBC 2.97 L Hgb 8.9 L Hct 27.8 L MCV MCHC RDW 15.8 H Plt Count 485 H Lymph % (Auto) [place] % (Auto) Lymph # (Auto) [place] # (Auto) Seg Neutrophils % Seg Neuts % (Manual) Lymphocytes % (Manual) Monocytes % (Manual) Nucleated RBC % Seg Neutrophils # Seg Neutrophils # Man Lymphocytes # (Manual) Monocytes # (Manual) PT INR APTT D-Dimer Heparin Anti-Xa Level ABG pH POC ABG pCO2 POC ABG pO2 ABG pO2 ABG HCO3 ABG O2 Saturation ABG Base Excess ABG Hemoglobin ABG Oxyhemoglobin ABG Sodium ABG Potassium ABG Glucose Oxyhemoglobin Carboxyhemoglobin Sodium Potassium Chloride 97.1 L Carbon Dioxide 40 H BUN 21 H Creatinine 0.5 L Glucose 149 H POC Glucose 170 H Lactic Acid Calcium Phosphorus 1.90 L D Magnesium Ferritin Lactate Dehydrogenase C-Reactive Protein NT-Pro-B Natriuret Pep Total Protein Albumin Triglycerides Arterial Blood Glucose Urine pH Ur Specific [place] Coronavirus (PCR) 04/09/21 04/09/21 04/09/21 05:27 11:55 17:11 WBC RBC Hgb Hct MCV MCHC RDW Plt Count Lymph % (Auto) [place] % (Auto) Lymph # (Auto) [place] # (Auto) Seg Neutrophils % Seg Neuts % (Manual) Lymphocytes % (Manual) Monocytes % (Manual) Nucleated RBC % Seg Neutrophils # Seg Neutrophils # Man Lymphocytes # (Manual) Monocytes # (Manual) PT INR APTT D-Dimer Heparin Anti-Xa Level ABG pH POC ABG pCO2 POC ABG pO2 ABG pO2 ABG HCO3 ABG O2 Saturation ABG Base Excess ABG Hemoglobin ABG Oxyhemoglobin ABG Sodium ABG Potassium ABG Glucose Oxyhemoglobin Carboxyhemoglobin Sodium Potassium Chloride Carbon Dioxide BUN Creatinine Glucose POC Glucose 144 H 190 H 163 H Lactic Acid Calcium Phosphorus Magnesium Ferritin Lactate Dehydrogenase C-Reactive Protein NT-Pro-B Natriuret Pep Total Protein Albumin Triglycerides Arterial Blood Glucose Urine pH Ur Specific [place] Coronavirus (PCR) 04/09/21 04/09/21 04/09/21 20:10 21:12 23:33 WBC RBC Hgb Hct MCV MCHC RDW Plt Count Lymph % (Auto) [place] % (Auto) Lymph # (Auto) [place] # (Auto) Seg Neutrophils % Seg Neuts % (Manual) Lymphocytes % (Manual) Monocytes % (Manual) Nucleated RBC % Seg Neutrophils # Seg Neutrophils # Man Lymphocytes # (Manual) Monocytes # (Manual) PT INR APTT D-Dimer Heparin Anti-Xa Level ABG pH POC ABG pCO2 POC ABG pO2 ABG pO2 68.1 L ABG HCO3 41.3 H ABG O2 Saturation ABG Base Excess 14.6 H ABG Hemoglobin 10.2 L ABG Oxyhemoglobin ABG Sodium ABG Potassium ABG Glucose Oxyhemoglobin 94.7 L Carboxyhemoglobin Sodium Potassium Chloride Carbon Dioxide BUN Creatinine Glucose POC Glucose 163 H 164 H Lactic Acid Calcium Phosphorus Magnesium Ferritin Lactate Dehydrogenase C-Reactive Protein NT-Pro-B Natriuret Pep Total Protein Albumin Triglycerides Arterial Blood Glucose Urine pH Ur Specific [place] Coronavirus (PCR) 04/10/21 04/10/21 04/10/21 05:26 11:41 13:00 WBC RBC 3.09 L Hgb 9.3 L Hct 28.3 L MCV MCHC RDW 15.8 H Plt Count 480 H Lymph % (Auto) [place] % (Auto) Lymph # (Auto) [place] # (Auto) Seg Neutrophils % Seg Neuts % (Manual) Lymphocytes % (Manual) Monocytes % (Manual) Nucleated RBC % Seg Neutrophils # Seg Neutrophils # Man Lymphocytes # (Manual) Monocytes # (Manual) PT INR APTT D-Dimer Heparin Anti-Xa Level ABG pH POC ABG pCO2 POC ABG pO2 ABG pO2 ABG HCO3 ABG O2 Saturation ABG Base Excess ABG Hemoglobin ABG Oxyhemoglobin ABG Sodium ABG Potassium ABG Glucose Oxyhemoglobin Carboxyhemoglobin Sodium Potassium Chloride Carbon Dioxide BUN Creatinine Glucose POC Glucose 172 H 150 H Lactic Acid Calcium Phosphorus Magnesium Ferritin Lactate Dehydrogenase C-Reactive Protein NT-Pro-B Natriuret Pep Total Protein Albumin Triglycerides Arterial Blood Glucose Urine pH Ur Specific [place] Coronavirus (PCR) 04/10/21 04/10/21 04/10/21 13:00 17:46 21:37 WBC RBC Hgb Hct MCV MCHC RDW Plt Count Lymph % (Auto) [place] % (Auto) Lymph # (Auto) [place] # (Auto) Seg Neutrophils % Seg Neuts % (Manual) Lymphocytes % (Manual) Monocytes % (Manual) Nucleated RBC % Seg Neutrophils # Seg Neutrophils # Man Lymphocytes # (Manual) Monocytes # (Manual) PT INR APTT D-Dimer Heparin Anti-Xa Level ABG pH POC ABG pCO2 POC ABG pO2 ABG pO2 ABG HCO3 ABG O2 Saturation ABG Base Excess ABG Hemoglobin ABG Oxyhemoglobin ABG Sodium ABG Potassium ABG Glucose Oxyhemoglobin Carboxyhemoglobin Sodium Potassium Chloride 96.4 L Carbon Dioxide 34 H BUN Creatinine 0.5 L Glucose 165 H POC Glucose 165 H 166 H Lactic Acid Calcium Phosphorus Magnesium Ferritin Lactate Dehydrogenase C-Reactive Protein NT-Pro-B Natriuret Pep Total Protein Albumin Triglycerides Arterial Blood Glucose Urine pH Ur Specific [place] Coronavirus (PCR) 04/10/21 04/11/21 04/11/21 23:56 04:30 05:39 WBC 11.5 H RBC 3.02 L Hgb 8.9 L Hct 27.8 L MCV MCHC RDW 16.0 H Plt Count 505 H Lymph % (Auto) [place] % (Auto) Lymph # (Auto) [place] # (Auto) Seg Neutrophils % Seg Neuts % (Manual) Lymphocytes % (Manual) Monocytes % (Manual) Nucleated RBC % Seg Neutrophils # Seg Neutrophils # Man Lymphocytes # (Manual) Monocytes # (Manual) PT INR APTT D-Dimer Heparin Anti-Xa Level ABG pH POC ABG pCO2 POC ABG pO2 ABG pO2 ABG HCO3 ABG O2 Saturation ABG Base Excess ABG Hemoglobin ABG Oxyhemoglobin ABG Sodium ABG Potassium ABG Glucose Oxyhemoglobin Carboxyhemoglobin Sodium Potassium Chloride Carbon Dioxide BUN Creatinine Glucose POC Glucose 156 H 164 H Lactic Acid Calcium Phosphorus Magnesium Ferritin Lactate Dehydrogenase C-Reactive Protein NT-Pro-B Natriuret Pep Total Protein Albumin Triglycerides Arterial Blood Glucose Urine pH Ur Specific [place] Coronavirus (PCR) 04/11/21 04/11/21 04/11/21 06:47 06:47 11:29 WBC RBC 3.35 L Hgb 9.8 L Hct 30.7 L MCV MCHC RDW 16.3 H Plt Count 520 H Lymph % (Auto) [place] % (Auto) Lymph # (Auto) [place] # (Auto) Seg Neutrophils % Seg Neuts % (Manual) 76.0 H Lymphocytes % (Manual) 10.0 L Monocytes % (Manual) Nucleated RBC % Seg Neutrophils # Seg Neutrophils # Man 8.3 H Lymphocytes # (Manual) 1.1 L Monocytes # (Manual) PT INR APTT D-Dimer Heparin Anti-Xa Level ABG pH POC ABG pCO2 POC ABG pO2 ABG pO2 ABG HCO3 ABG O2 Saturation ABG Base Excess ABG Hemoglobin ABG Oxyhemoglobin ABG Sodium ABG Potassium ABG Glucose Oxyhemoglobin Carboxyhemoglobin Sodium Potassium Chloride 97.7 L Carbon Dioxide 34 H BUN Creatinine 0.4 L Glucose 178 H POC Glucose 170 H Lactic Acid Calcium Phosphorus Magnesium Ferritin Lactate Dehydrogenase C-Reactive Protein NT-Pro-B Natriuret Pep Total Protein Albumin Triglycerides Arterial Blood Glucose Urine pH Ur Specific [place] Coronavirus (PCR) 04/11/21 04/11/21 04/11/21 18:17 18:17 18:17 WBC RBC 3.22 L Hgb 9.5 L Hct 29.8 L MCV MCHC RDW 16.0 H Plt Count Lymph % (Auto) [place] % (Auto) Lymph # (Auto) [place] # (Auto) Seg Neutrophils % Seg Neuts % (Manual) Lymphocytes % (Manual) Monocytes % (Manual) Nucleated RBC % Seg Neutrophils # Seg Neutrophils # Man Lymphocytes # (Manual) Monocytes # (Manual) PT INR APTT 61.1 H* D-Dimer Heparin Anti-Xa Level ABG pH POC ABG pCO2 POC ABG pO2 ABG pO2 ABG HCO3 ABG O2 Saturation ABG Base Excess ABG Hemoglobin ABG Oxyhemoglobin ABG Sodium ABG Potassium ABG Glucose Oxyhemoglobin Carboxyhemoglobin Sodium Potassium Chloride Carbon Dioxide BUN Creatinine 0.3 L Glucose POC Glucose Lactic Acid Calcium Phosphorus Magnesium Ferritin Lactate Dehydrogenase C-Reactive Protein NT-Pro-B Natriuret Pep Total Protein Albumin Triglycerides Arterial Blood Glucose Urine pH Ur Specific [place] Coronavirus (PCR) 04/11/21 04/12/21 04/12/21 18:25 00:19 05:11 WBC RBC 2.92 L Hgb 8.6 L Hct 26.9 L MCV MCHC RDW 16.3 H Plt Count 460 H Lymph % (Auto) [place] % (Auto) Lymph # (Auto) [place] # (Auto) Seg Neutrophils % Seg Neuts % (Manual) Lymphocytes % (Manual) Monocytes % (Manual) Nucleated RBC % Seg Neutrophils # Seg Neutrophils # Man Lymphocytes # (Manual) Monocytes # (Manual) PT INR APTT D-Dimer Heparin Anti-Xa Level ABG pH POC ABG pCO2 POC ABG pO2 ABG pO2 ABG HCO3 ABG O2 Saturation ABG Base Excess ABG Hemoglobin ABG Oxyhemoglobin ABG Sodium ABG Potassium ABG Glucose Oxyhemoglobin Carboxyhemoglobin Sodium Potassium Chloride Carbon Dioxide BUN Creatinine Glucose POC Glucose 167 H 128 H Lactic Acid Calcium Phosphorus Magnesium Ferritin Lactate Dehydrogenase C-Reactive Protein NT-Pro-B Natriuret Pep Total Protein Albumin Triglycerides Arterial Blood Glucose Urine pH Ur Specific [place] Coronavirus (PCR) 04/12/21 04/12/21 04/12/21 05:11 05:11 06:23 WBC RBC Hgb Hct MCV MCHC RDW Plt Count Lymph % (Auto) [place] % (Auto) Lymph # (Auto) [place] # (Auto) Seg Neutrophils % Seg Neuts % (Manual) Lymphocytes % (Manual) Monocytes % (Manual) Nucleated RBC % Seg Neutrophils # Seg Neutrophils # Man Lymphocytes # (Manual) Monocytes # (Manual) PT INR APTT D-Dimer Heparin Anti-Xa Level 1.03 H ABG pH POC ABG pCO2 POC ABG pO2 ABG pO2 ABG HCO3 ABG O2 Saturation ABG Base Excess ABG Hemoglobin ABG Oxyhemoglobin ABG Sodium ABG Potassium ABG Glucose Oxyhemoglobin Carboxyhemoglobin Sodium Potassium Chloride Carbon Dioxide 34 H BUN Creatinine 0.3 L Glucose 153 H POC Glucose 162 H Lactic Acid Calcium Phosphorus Magnesium Ferritin Lactate Dehydrogenase C-Reactive Protein NT-Pro-B Natriuret Pep Total Protein Albumin Triglycerides Arterial Blood Glucose Urine pH Ur Specific [place] Coronavirus (PCR) 04/12/21 04/12/21 04/12/21 09:45 11:08 15:56 WBC RBC Hgb Hct MCV MCHC RDW Plt Count Lymph % (Auto) [place] % (Auto) Lymph # (Auto) [place] # (Auto) Seg Neutrophils % Seg Neuts % (Manual) Lymphocytes % (Manual) Monocytes % (Manual) Nucleated RBC % Seg Neutrophils # Seg Neutrophils # Man Lymphocytes # (Manual) Monocytes # (Manual) PT INR APTT D-Dimer Heparin Anti-Xa Level ABG pH POC ABG pCO2 POC ABG pO2 ABG pO2 70.8 L ABG HCO3 41.0 H ABG O2 Saturation ABG Base Excess 13.7 H ABG Hemoglobin 8.3 L ABG Oxyhemoglobin ABG Sodium ABG Potassium ABG Glucose Oxyhemoglobin 94.0 L Carboxyhemoglobin Sodium Potassium Chloride Carbon Dioxide BUN Creatinine Glucose POC Glucose 174 H 146 H Lactic Acid Calcium Phosphorus Magnesium Ferritin Lactate Dehydrogenase C-Reactive Protein NT-Pro-B Natriuret Pep Total Protein Albumin Triglycerides Arterial Blood Glucose Urine pH Ur Specific [place] Coronavirus (PCR) 04/12/21 04/12/21 04/13/21 21:55 23:25 04:34 WBC 12.5 H RBC 2.97 L Hgb 8.9 L Hct 27.3 L MCV MCHC RDW 16.4 H Plt Count 470 H Lymph % (Auto) [place] % (Auto) Lymph # (Auto) [place] # (Auto) Seg Neutrophils % Seg Neuts % (Manual) Lymphocytes % (Manual) Monocytes % (Manual) Nucleated RBC % Seg Neutrophils # Seg Neutrophils # Man Lymphocytes # (Manual) Monocytes # (Manual) PT INR APTT D-Dimer Heparin Anti-Xa Level ABG pH POC ABG pCO2 POC ABG pO2 ABG pO2 ABG HCO3 ABG O2 Saturation ABG Base Excess ABG Hemoglobin ABG Oxyhemoglobin ABG Sodium ABG Potassium ABG Glucose Oxyhemoglobin Carboxyhemoglobin Sodium Potassium Chloride Carbon Dioxide BUN Creatinine Glucose POC Glucose 142 H 170 H Lactic Acid Calcium Phosphorus Magnesium Ferritin Lactate Dehydrogenase C-Reactive Protein NT-Pro-B Natriuret Pep Total Protein Albumin Triglycerides Arterial Blood Glucose Urine pH Ur Specific [place] Coronavirus (PCR) 04/13/21 04/13/21 04/13/21 04:34 05:17 11:14 WBC RBC Hgb Hct MCV MCHC RDW Plt Count Lymph % (Auto) [place] % (Auto) Lymph # (Auto) [place] # (Auto) Seg Neutrophils % Seg Neuts % (Manual) Lymphocytes % (Manual) Monocytes % (Manual) Nucleated RBC % Seg Neutrophils # Seg Neutrophils # Man Lymphocytes # (Manual) Monocytes # (Manual) PT INR APTT D-Dimer Heparin Anti-Xa Level ABG pH POC ABG pCO2 POC ABG pO2 ABG pO2 ABG HCO3 ABG O2 Saturation ABG Base Excess ABG Hemoglobin ABG Oxyhemoglobin ABG Sodium ABG Potassium ABG Glucose Oxyhemoglobin Carboxyhemoglobin Sodium Potassium Chloride 96.6 L Carbon Dioxide 41 H* D BUN Creatinine 0.3 L Glucose 171 H POC Glucose 141 H 149 H Lactic Acid Calcium Phosphorus Magnesium Ferritin Lactate Dehydrogenase C-Reactive Protein NT-Pro-B Natriuret Pep Total Protein Albumin Triglycerides Arterial Blood Glucose Urine pH Ur Specific [place] Coronavirus (PCR) 04/13/21 04/13/21 04/14/21 15:51 23:35 04:32 WBC 13.8 H RBC 2.64 L Hgb 8.0 L Hct 24.1 L MCV MCHC RDW 16.1 H Plt Count Lymph % (Auto) [place] % (Auto) Lymph # (Auto) [place] # (Auto) Seg Neutrophils % Seg Neuts % (Manual) Lymphocytes % (Manual) Monocytes % (Manual) Nucleated RBC % Seg Neutrophils # Seg Neutrophils # Man Lymphocytes # (Manual) Monocytes # (Manual) PT INR APTT D-Dimer Heparin Anti-Xa Level ABG pH POC ABG pCO2 POC ABG pO2 ABG pO2 ABG HCO3 ABG O2 Saturation ABG Base Excess ABG Hemoglobin ABG Oxyhemoglobin ABG Sodium ABG Potassium ABG Glucose Oxyhemoglobin Carboxyhemoglobin Sodium Potassium Chloride Carbon Dioxide BUN Creatinine Glucose POC Glucose 136 H 167 H Lactic Acid Calcium Phosphorus Magnesium Ferritin Lactate Dehydrogenase C-Reactive Protein NT-Pro-B Natriuret Pep Total Protein Albumin Triglycerides Arterial Blood Glucose Urine pH Ur Specific [place] Coronavirus (PCR) 04/14/21 04/14/21 04/14/21 04:32 05:18 11:03 WBC RBC Hgb Hct MCV MCHC RDW Plt Count Lymph % (Auto) [place] % (Auto) Lymph # (Auto) [place] # (Auto) Seg Neutrophils % Seg Neuts % (Manual) Lymphocytes % (Manual) Monocytes % (Manual) Nucleated RBC % Seg Neutrophils # Seg Neutrophils # Man Lymphocytes # (Manual) Monocytes # (Manual) PT INR APTT D-Dimer Heparin Anti-Xa Level ABG pH POC ABG pCO2 POC ABG pO2 ABG pO2 ABG HCO3 ABG O2 Saturation ABG Base Excess ABG Hemoglobin ABG Oxyhemoglobin ABG Sodium ABG Potassium ABG Glucose Oxyhemoglobin Carboxyhemoglobin Sodium Potassium Chloride 95.5 L Carbon Dioxide 38 H BUN Creatinine 0.4 L Glucose 141 H POC Glucose 140 H 143 H Lactic Acid Calcium Phosphorus Magnesium Ferritin Lactate Dehydrogenase C-Reactive Protein NT-Pro-B Natriuret Pep Total Protein Albumin Triglycerides Arterial Blood Glucose Urine pH Ur Specific [place] Coronavirus (PCR) 04/14/21 04/14/2122 16:38 23:46 Unknown WBC RBC Hgb Hct MCV MCHC RDW Plt Count Lymph % (Auto) [place] % (Auto) Lymph # (Auto) [place] # (Auto) Seg Neutrophils % Seg Neuts % (Manual) Lymphocytes % (Manual) Monocytes % (Manual) Nucleated RBC % Seg Neutrophils # Seg Neutrophils # Man Lymphocytes # (Manual) Monocytes # (Manual) PT INR APTT D-Dimer Heparin Anti-Xa Level ABG pH POC ABG pCO2 POC ABG pO2 ABG pO2 ABG HCO3 ABG O2 Saturation ABG Base Excess ABG Hemoglobin ABG Oxyhemoglobin ABG Sodium ABG Potassium ABG Glucose Oxyhemoglobin Carboxyhemoglobin Sodium Potassium Chloride Carbon Dioxide BUN Creatinine Glucose POC Glucose 157 H 155 H Lactic Acid Calcium Phosphorus Magnesium Ferritin Lactate Dehydrogenase C-Reactive Protein NT-Pro-B Natriuret Pep Total Protein Albumin Triglycerides Arterial Blood Glucose Urine pH 8.0 H Ur Specific [place] Coronavirus (PCR) 04/15/21 04/15/21 04/15/21 04:44 04:44 05:52 WBC 15.8 H RBC 2.96 L Hgb 8.9 L Hct 27.1 L MCV MCHC RDW 16.5 H Plt Count 507 H Lymph % (Auto) [place] % (Auto) Lymph # (Auto) [place] # (Auto) Seg Neutrophils % Seg Neuts % (Manual) Lymphocytes % (Manual) Monocytes % (Manual) Nucleated RBC % Seg Neutrophils # Seg Neutrophils # Man Lymphocytes # (Manual) Monocytes # (Manual) PT INR APTT D-Dimer Heparin Anti-Xa Level ABG pH POC ABG pCO2 POC ABG pO2 ABG pO2 ABG HCO3 ABG O2 Saturation ABG Base Excess ABG Hemoglobin ABG Oxyhemoglobin ABG Sodium ABG Potassium ABG Glucose Oxyhemoglobin Carboxyhemoglobin Sodium Potassium Chloride 96.9 L Carbon Dioxide 38 H BUN Creatinine 0.4 L Glucose 163 H POC Glucose 167 H Lactic Acid Calcium Phosphorus Magnesium Ferritin Lactate Dehydrogenase C-Reactive Protein NT-Pro-B Natriuret Pep Total Protein Albumin Triglycerides Arterial Blood Glucose Urine pH Ur Specific [place] Coronavirus (PCR) 04/15/21 04/15/21 04/15/21 11:35 17:20 18:10 WBC RBC Hgb Hct MCV MCHC RDW Plt Count Lymph % (Auto) [place] % (Auto) Lymph # (Auto) [place] # (Auto) Seg Neutrophils % Seg Neuts % (Manual) Lymphocytes % (Manual) Monocytes % (Manual) Nucleated RBC % Seg Neutrophils # Seg Neutrophils # Man Lymphocytes # (Manual) Monocytes # (Manual) PT INR APTT D-Dimer Heparin Anti-Xa Level ABG pH 7.477 H POC ABG pCO2 POC ABG pO2 ABG pO2 ABG HCO3 40.6 H ABG O2 Saturation ABG Base Excess 15.2 H ABG Hemoglobin 9.0 L ABG Oxyhemoglobin ABG Sodium ABG Potassium ABG Glucose Oxyhemoglobin 94.7 L Carboxyhemoglobin Sodium Potassium Chloride Carbon Dioxide BUN Creatinine Glucose POC Glucose 179 H 165 H Lactic Acid Calcium Phosphorus Magnesium Ferritin Lactate Dehydrogenase C-Reactive Protein NT-Pro-B Natriuret Pep Total Protein Albumin Triglycerides Arterial Blood Glucose Urine pH Ur Specific [place] Coronavirus (PCR) 04/15/21 04/16/21 04/16/21 23:39 04:33 04:33 WBC 13.1 H RBC 3.26 L Hgb 9.5 L Hct 30.2 L MCV MCHC 31 L RDW 16.2 H Plt Count Lymph % (Auto) [place] % (Auto) Lymph # (Auto) [place] # (Auto) Seg Neutrophils % Seg Neuts % (Manual) Lymphocytes % (Manual) Monocytes % (Manual) Nucleated RBC % Seg Neutrophils # Seg Neutrophils # Man Lymphocytes # (Manual) Monocytes # (Manual) PT INR APTT D-Dimer Heparin Anti-Xa Level ABG pH POC ABG pCO2 POC ABG pO2 ABG pO2 ABG HCO3 ABG O2 Saturation ABG Base Excess ABG Hemoglobin ABG Oxyhemoglobin ABG Sodium ABG Potassium ABG Glucose Oxyhemoglobin Carboxyhemoglobin Sodium Potassium Chloride 95.8 L Carbon Dioxide 34 H BUN 24 H Creatinine 0.4 L Glucose 153 H POC Glucose 155 H Lactic Acid Calcium Phosphorus Magnesium 2.40 H Ferritin Lactate Dehydrogenase C-Reactive Protein NT-Pro-B Natriuret Pep Total Protein Albumin Triglycerides Arterial Blood Glucose Urine pH Ur Specific [place] Coronavirus (PCR) 04/16/21 04/16/21 04/16/21 04:55 05:29 11:02 WBC RBC Hgb Hct MCV MCHC RDW Plt Count Lymph % (Auto) [place] % (Auto) Lymph # (Auto) [place] # (Auto) Seg Neutrophils % Seg Neuts % (Manual) Lymphocytes % (Manual) Monocytes % (Manual) Nucleated RBC % Seg Neutrophils # Seg Neutrophils # Man Lymphocytes # (Manual) Monocytes # (Manual) PT INR APTT D-Dimer Heparin Anti-Xa Level ABG pH 7.487 H POC ABG pCO2 POC ABG pO2 ABG pO2 75.4 L ABG HCO3 40.6 H ABG O2 Saturation ABG Base Excess 15.3 H ABG Hemoglobin 8.9 L ABG Oxyhemoglobin ABG Sodium ABG Potassium ABG Glucose Oxyhemoglobin Carboxyhemoglobin Sodium Potassium Chloride Carbon Dioxide BUN Creatinine Glucose POC Glucose 168 H 170 H Lactic Acid Calcium Phosphorus Magnesium Ferritin Lactate Dehydrogenase C-Reactive Protein NT-Pro-B Natriuret Pep Total Protein Albumin Triglycerides Arterial Blood Glucose Urine pH Ur Specific [place] Coronavirus (PCR) 04/16/21 04/16/21 04/17/21 16:13 23:41 04:25 WBC 12.5 H RBC 3.00 L Hgb 8.9 L Hct 27.2 L MCV MCHC RDW 16.0 H Plt Count Lymph % (Auto) [place] % (Auto) Lymph # (Auto) [place] # (Auto) Seg Neutrophils % Seg Neuts % (Manual) Lymphocytes % (Manual) Monocytes % (Manual) Nucleated RBC % Seg Neutrophils # Seg Neutrophils # Man Lymphocytes # (Manual) Monocytes # (Manual) PT INR APTT D-Dimer Heparin Anti-Xa Level ABG pH POC ABG pCO2 POC ABG pO2 ABG pO2 ABG HCO3 ABG O2 Saturation ABG Base Excess ABG Hemoglobin ABG Oxyhemoglobin ABG Sodium ABG Potassium ABG Glucose Oxyhemoglobin Carboxyhemoglobin Sodium Potassium Chloride Carbon Dioxide BUN Creatinine Glucose POC Glucose 167 H 150 H Lactic Acid Calcium Phosphorus Magnesium Ferritin Lactate Dehydrogenase C-Reactive Protein NT-Pro-B Natriuret Pep Total Protein Albumin Triglycerides Arterial Blood Glucose Urine pH Ur Specific [place] Coronavirus (PCR) 04/17/21 04/17/21 04/17/21 04:25 05:23 11:18 WBC RBC Hgb Hct MCV MCHC RDW Plt Count Lymph % (Auto) [place] % (Auto) Lymph # (Auto) [place] # (Auto) Seg Neutrophils % Seg Neuts % (Manual) Lymphocytes % (Manual) Monocytes % (Manual) Nucleated RBC % Seg Neutrophils # Seg Neutrophils # Man Lymphocytes # (Manual) Monocytes # (Manual) PT INR APTT D-Dimer Heparin Anti-Xa Level ABG pH POC ABG pCO2 POC ABG pO2 ABG pO2 ABG HCO3 ABG O2 Saturation ABG Base Excess ABG Hemoglobin ABG Oxyhemoglobin ABG Sodium ABG Potassium ABG Glucose Oxyhemoglobin Carboxyhemoglobin Sodium 136 L Potassium Chloride 92.4 L Carbon Dioxide 36 H BUN 23 H Creatinine 0.4 L Glucose 145 H POC Glucose 128 H 163 H Lactic Acid Calcium Phosphorus Magnesium Ferritin Lactate Dehydrogenase C-Reactive Protein NT-Pro-B Natriuret Pep Total Protein Albumin Triglycerides Arterial Blood Glucose Urine pH Ur Specific [place] Coronavirus (PCR) 04/17/21 04/17/21 04/18/21 16:50 21:04 00:18 WBC RBC Hgb Hct MCV MCHC RDW Plt Count Lymph % (Auto) [place] % (Auto) Lymph # (Auto) [place] # (Auto) Seg Neutrophils % Seg Neuts % (Manual) Lymphocytes % (Manual) Monocytes % (Manual) Nucleated RBC % Seg Neutrophils # Seg Neutrophils # Man Lymphocytes # (Manual) Monocytes # (Manual) PT INR APTT D-Dimer Heparin Anti-Xa Level ABG pH POC ABG pCO2 POC ABG pO2 ABG pO2 ABG HCO3 ABG O2 Saturation ABG Base Excess ABG Hemoglobin ABG Oxyhemoglobin ABG Sodium ABG Potassium ABG Glucose Oxyhemoglobin Carboxyhemoglobin Sodium Potassium Chloride Carbon Dioxide BUN Creatinine Glucose POC Glucose 137 H 186 H 194 H Lactic Acid Calcium Phosphorus Magnesium Ferritin Lactate Dehydrogenase C-Reactive Protein NT-Pro-B Natriuret Pep Total Protein Albumin Triglycerides Arterial Blood Glucose Urine pH Ur Specific [place] Coronavirus (PCR) 04/18/21 04/18/21 04/18/21 04:20 04:20 05:21 WBC 14.2 H RBC 2.92 L Hgb 8.5 L Hct 26.3 L MCV MCHC RDW 16.1 H Plt Count Lymph % (Auto) [place] % (Auto) Lymph # (Auto) [place] # (Auto) Seg Neutrophils % Seg Neuts % (Manual) Lymphocytes % (Manual) Monocytes % (Manual) Nucleated RBC % Seg Neutrophils # Seg Neutrophils # Man Lymphocytes # (Manual) Monocytes # (Manual) PT INR APTT D-Dimer Heparin Anti-Xa Level ABG pH POC ABG pCO2 POC ABG pO2 ABG pO2 ABG HCO3 ABG O2 Saturation ABG Base Excess ABG Hemoglobin ABG Oxyhemoglobin ABG Sodium ABG Potassium ABG Glucose Oxyhemoglobin Carboxyhemoglobin Sodium Potassium Chloride 95.7 L Carbon Dioxide 33 H BUN 21 H Creatinine 0.3 L Glucose 120 H POC Glucose 107 H Lactic Acid Calcium Phosphorus Magnesium Ferritin Lactate Dehydrogenase C-Reactive Protein NT-Pro-B Natriuret Pep Total Protein Albumin Triglycerides Arterial Blood Glucose Urine pH Ur Specific [place] Coronavirus (PCR) 04/18/21 04/18/21 04/18/21 05:26 11:30 11:33 WBC RBC Hgb Hct MCV MCHC RDW Plt Count Lymph % (Auto) [place] % (Auto) Lymph # (Auto) [place] # (Auto) Seg Neutrophils % Seg Neuts % (Manual) Lymphocytes % (Manual) Monocytes % (Manual) Nucleated RBC % Seg Neutrophils # Seg Neutrophils # Man Lymphocytes # (Manual) Monocytes # (Manual) PT INR APTT D-Dimer Heparin Anti-Xa Level ABG pH 7.469 H POC ABG pCO2 POC ABG pO2 ABG pO2 108.9 H ABG HCO3 36.2 H ABG O2 Saturation ABG Base Excess 11.2 H ABG Hemoglobin 8.8 L ABG Oxyhemoglobin ABG Sodium ABG Potassium ABG Glucose Oxyhemoglobin Carboxyhemoglobin Sodium Potassium Chloride Carbon Dioxide BUN Creatinine Glucose POC Glucose 111 H 113 H Lactic Acid Calcium Phosphorus Magnesium Ferritin Lactate Dehydrogenase C-Reactive Protein NT-Pro-B Natriuret Pep Total Protein Albumin Triglycerides Arterial Blood Glucose Urine pH Ur Specific [place] Coronavirus (PCR) 04/18/21 04/18/21 04/19/21 16:53 23:26 04:26 WBC 13.6 H RBC 2.69 L Hgb 8.5 L Hct 24.4 L MCV MCHC 35 H RDW 15.9 H Plt Count Lymph % (Auto) [place] % (Auto) Lymph # (Auto) [place] # (Auto) Seg Neutrophils % Seg Neuts % (Manual) Lymphocytes % (Manual) Monocytes % (Manual) Nucleated RBC % Seg Neutrophils # Seg Neutrophils # Man Lymphocytes # (Manual) Monocytes # (Manual) PT INR APTT D-Dimer Heparin Anti-Xa Level ABG pH POC ABG pCO2 POC ABG pO2 ABG pO2 ABG HCO3 ABG O2 Saturation ABG Base Excess ABG Hemoglobin ABG Oxyhemoglobin ABG Sodium ABG Potassium ABG Glucose Oxyhemoglobin Carboxyhemoglobin Sodium Potassium Chloride Carbon Dioxide BUN Creatinine Glucose POC Glucose 139 H 137 H Lactic Acid Calcium Phosphorus Magnesium Ferritin Lactate Dehydrogenase C-Reactive Protein NT-Pro-B Natriuret Pep Total Protein Albumin Triglycerides Arterial Blood Glucose Urine pH Ur Specific [place] Coronavirus (PCR) 04/19/21 04/19/21 04/19/21 04:26 05:16 11:01 WBC RBC Hgb Hct MCV MCHC RDW Plt Count Lymph % (Auto) [place] % (Auto) Lymph # (Auto) [place] # (Auto) Seg Neutrophils % Seg Neuts % (Manual) Lymphocytes % (Manual) Monocytes % (Manual) Nucleated RBC % Seg Neutrophils # Seg Neutrophils # Man Lymphocytes # (Manual) Monocytes # (Manual) PT INR APTT D-Dimer Heparin Anti-Xa Level ABG pH POC ABG pCO2 POC ABG pO2 ABG pO2 ABG HCO3 ABG O2 Saturation ABG Base Excess ABG Hemoglobin ABG Oxyhemoglobin ABG Sodium ABG Potassium ABG Glucose Oxyhemoglobin Carboxyhemoglobin Sodium Potassium Chloride Carbon Dioxide BUN Creatinine 0.3 L Glucose 163 H POC Glucose 154 H 164 H Lactic Acid Calcium Phosphorus Magnesium Ferritin Lactate Dehydrogenase C-Reactive Protein NT-Pro-B Natriuret Pep Total Protein Albumin Triglycerides Arterial Blood Glucose Urine pH Ur Specific [place] Coronavirus (PCR) 04/19/21 04/19/21 04/19/21 15:55 21:00 23:13 WBC RBC Hgb Hct MCV MCHC RDW Plt Count Lymph % (Auto) [place] % (Auto) Lymph # (Auto) [place] # (Auto) Seg Neutrophils % Seg Neuts % (Manual) Lymphocytes % (Manual) Monocytes % (Manual) Nucleated RBC % Seg Neutrophils # Seg Neutrophils # Man Lymphocytes # (Manual) Monocytes # (Manual) PT INR APTT D-Dimer Heparin Anti-Xa Level ABG pH POC ABG pCO2 POC ABG pO2 ABG pO2 ABG HCO3 ABG O2 Saturation ABG Base Excess ABG Hemoglobin ABG Oxyhemoglobin ABG Sodium ABG Potassium ABG Glucose Oxyhemoglobin Carboxyhemoglobin Sodium Potassium Chloride Carbon Dioxide BUN Creatinine Glucose POC Glucose 138 H 151 H 147 H Lactic Acid Calcium Phosphorus Magnesium Ferritin Lactate Dehydrogenase C-Reactive Protein NT-Pro-B Natriuret Pep Total Protein Albumin Triglycerides Arterial Blood Glucose Urine pH Ur Specific [place] Coronavirus (PCR) 04/20/21 04/20/21 04/20/21 04:17 04:17 05:15 WBC 13.1 H RBC 2.94 L Hgb 8.8 L Hct 26.8 L MCV MCHC RDW 16.2 H Plt Count Lymph % (Auto) [place] % (Auto) Lymph # (Auto) [place] # (Auto) Seg Neutrophils % Seg Neuts % (Manual) Lymphocytes % (Manual) Monocytes % (Manual) Nucleated RBC % Seg Neutrophils # Seg Neutrophils # Man Lymphocytes # (Manual) Monocytes # (Manual) PT INR APTT D-Dimer Heparin Anti-Xa Level ABG pH POC ABG pCO2 POC ABG pO2 ABG pO2 ABG HCO3 ABG O2 Saturation ABG Base Excess ABG Hemoglobin ABG Oxyhemoglobin ABG Sodium ABG Potassium ABG Glucose Oxyhemoglobin Carboxyhemoglobin Sodium 135 L Potassium Chloride Carbon Dioxide BUN Creatinine 0.3 L Glucose 151 H POC Glucose 126 H Lactic Acid Calcium 8.3 L Phosphorus Magnesium Ferritin Lactate Dehydrogenase C-Reactive Protein NT-Pro-B Natriuret Pep Total Protein Albumin Triglycerides Arterial Blood Glucose Urine pH Ur Specific [place] Coronavirus (PCR) 04/20/21 04/20/21 04/20/21 11:03 16:01 23:54 WBC RBC Hgb Hct MCV MCHC RDW Plt Count Lymph % (Auto) [place] % (Auto) Lymph # (Auto) [place] # (Auto) Seg Neutrophils % Seg Neuts % (Manual) Lymphocytes % (Manual) Monocytes % (Manual) Nucleated RBC % Seg Neutrophils # Seg Neutrophils # Man Lymphocytes # (Manual) Monocytes # (Manual) PT INR APTT D-Dimer Heparin Anti-Xa Level ABG pH POC ABG pCO2 POC ABG pO2 ABG pO2 ABG HCO3 ABG O2 Saturation ABG Base Excess ABG Hemoglobin ABG Oxyhemoglobin ABG Sodium ABG Potassium ABG Glucose Oxyhemoglobin Carboxyhemoglobin Sodium Potassium Chloride Carbon Dioxide BUN Creatinine Glucose POC Glucose 154 H 152 H 145 H Lactic Acid Calcium Phosphorus Magnesium Ferritin Lactate Dehydrogenase C-Reactive Protein NT-Pro-B Natriuret Pep Total Protein Albumin Triglycerides Arterial Blood Glucose Urine pH Ur Specific [place] Coronavirus (PCR) 04/21/21 04/21/21 04/21/21 04:39 11:20 11:37 WBC RBC Hgb Hct MCV MCHC RDW Plt Count Lymph % (Auto) [place] % (Auto) Lymph # (Auto) [place] # (Auto) Seg Neutrophils % Seg Neuts % (Manual) Lymphocytes % (Manual) Monocytes % (Manual) Nucleated RBC % Seg Neutrophils # Seg Neutrophils # Man Lymphocytes # (Manual) Monocytes # (Manual) PT INR APTT D-Dimer Heparin Anti-Xa Level ABG pH 7.503 H POC ABG pCO2 POC ABG pO2 ABG pO2 ABG HCO3 ABG O2 Saturation ABG Base Excess ABG Hemoglobin 10.8 L ABG Oxyhemoglobin ABG Sodium ABG Potassium ABG Glucose Oxyhemoglobin Carboxyhemoglobin 0.1 L Sodium Potassium Chloride Carbon Dioxide BUN Creatinine 0.3 L Glucose 174 H POC Glucose 147 H Lactic Acid Calcium Phosphorus Magnesium Ferritin Lactate Dehydrogenase C-Reactive Protein NT-Pro-B Natriuret Pep Total Protein Albumin Triglycerides Arterial Blood Glucose Urine pH Ur Specific [place] Coronavirus (PCR) 04/21/21 04/21/21 04/21/21 11:48 12:11 17:56 WBC 14.5 H RBC 3.08 L Hgb 9.3 L Hct 28.2 L MCV MCHC RDW 16.5 H Plt Count Lymph % (Auto) [place] % (Auto) Lymph # (Auto) [place] # (Auto) Seg Neutrophils % Seg Neuts % (Manual) Lymphocytes % (Manual) Monocytes % (Manual) Nucleated RBC % Seg Neutrophils # Seg Neutrophils # Man Lymphocytes # (Manual) Monocytes # (Manual) PT INR APTT D-Dimer Heparin Anti-Xa Level ABG pH POC ABG pCO2 POC ABG pO2 ABG pO2 ABG HCO3 ABG O2 Saturation ABG Base Excess ABG Hemoglobin ABG Oxyhemoglobin ABG Sodium ABG Potassium ABG Glucose Oxyhemoglobin Carboxyhemoglobin Sodium Potassium Chloride Carbon Dioxide BUN Creatinine Glucose POC Glucose 154 H 138 H Lactic Acid Calcium Phosphorus Magnesium Ferritin Lactate Dehydrogenase C-Reactive Protein NT-Pro-B Natriuret Pep Total Protein Albumin Triglycerides Arterial Blood Glucose Urine pH Ur Specific [place] Coronavirus (PCR) 04/21/21 04/22/21 04/22/21 23:31 04:30 04:30 WBC 12.3 H RBC 3.20 L Hgb 9.5 L Hct 29.3 L MCV MCHC RDW 16.6 H Plt Count Lymph % (Auto) [place] % (Auto) Lymph # (Auto) [place] # (Auto) Seg Neutrophils % Seg Neuts % (Manual) Lymphocytes % (Manual) Monocytes % (Manual) Nucleated RBC % Seg Neutrophils # Seg Neutrophils # Man Lymphocytes # (Manual) Monocytes # (Manual) PT INR APTT D-Dimer Heparin Anti-Xa Level ABG pH POC ABG pCO2 POC ABG pO2 ABG pO2 ABG HCO3 ABG O2 Saturation ABG Base Excess ABG Hemoglobin ABG Oxyhemoglobin ABG Sodium ABG Potassium ABG Glucose Oxyhemoglobin Carboxyhemoglobin Sodium Potassium Chloride Carbon Dioxide BUN Creatinine 0.3 L Glucose 125 H POC Glucose 162 H Lactic Acid Calcium Phosphorus Magnesium Ferritin Lactate Dehydrogenase C-Reactive Protein NT-Pro-B Natriuret Pep Total Protein Albumin Triglycerides Arterial Blood Glucose Urine pH Ur Specific [place] Coronavirus (PCR) 04/22/21 04/22/21 04/22/21 05:17 12:03 17:22 WBC RBC Hgb Hct MCV MCHC RDW Plt Count Lymph % (Auto) [place] % (Auto) Lymph # (Auto) [place] # (Auto) Seg Neutrophils % Seg Neuts % (Manual) Lymphocytes % (Manual) Monocytes % (Manual) Nucleated RBC % Seg Neutrophils # Seg Neutrophils # Man Lymphocytes # (Manual) Monocytes # (Manual) PT INR APTT D-Dimer Heparin Anti-Xa Level ABG pH POC ABG pCO2 POC ABG pO2 ABG pO2 ABG HCO3 ABG O2 Saturation ABG Base Excess ABG Hemoglobin ABG Oxyhemoglobin ABG Sodium ABG Potassium ABG Glucose Oxyhemoglobin Carboxyhemoglobin Sodium Potassium Chloride Carbon Dioxide BUN Creatinine Glucose POC Glucose 112 H 156 H 133 H Lactic Acid Calcium Phosphorus Magnesium Ferritin Lactate Dehydrogenase C-Reactive Protein NT-Pro-B Natriuret Pep Total Protein Albumin Triglycerides Arterial Blood Glucose Urine pH Ur Specific [place] Coronavirus (PCR) 04/23/21 04/23/21 04/23/21 00:58 05:08 12:59 WBC RBC Hgb Hct MCV MCHC RDW Plt Count Lymph % (Auto) [place] % (Auto) Lymph # (Auto) [place] # (Auto) Seg Neutrophils % Seg Neuts % (Manual) Lymphocytes % (Manual) Monocytes % (Manual) Nucleated RBC % Seg Neutrophils # Seg Neutrophils # Man Lymphocytes # (Manual) Monocytes # (Manual) PT INR APTT D-Dimer Heparin Anti-Xa Level ABG pH POC ABG pCO2 POC ABG pO2 ABG pO2 ABG HCO3 ABG O2 Saturation ABG Base Excess ABG Hemoglobin ABG Oxyhemoglobin ABG Sodium ABG Potassium ABG Glucose Oxyhemoglobin Carboxyhemoglobin Sodium Potassium Chloride Carbon Dioxide BUN Creatinine Glucose POC Glucose 133 H 156 H 139 H Lactic Acid Calcium Phosphorus Magnesium Ferritin Lactate Dehydrogenase C-Reactive Protein NT-Pro-B Natriuret Pep Total Protein Albumin Triglycerides Arterial Blood Glucose Urine pH Ur Specific [place] Coronavirus (PCR) 04/23/21 04/23/21 04/24/21 18:12 23:41 04:00 WBC 12.9 H RBC 3.33 L Hgb 10.2 L Hct 30.1 L MCV MCHC RDW 16.6 H Plt Count Lymph % (Auto) [place] % (Auto) Lymph # (Auto) [place] # (Auto) Seg Neutrophils % Seg Neuts % (Manual) Lymphocytes % (Manual) Monocytes % (Manual) Nucleated RBC % Seg Neutrophils # Seg Neutrophils # Man Lymphocytes # (Manual) Monocytes # (Manual) PT INR APTT D-Dimer Heparin Anti-Xa Level ABG pH POC ABG pCO2 POC ABG pO2 ABG pO2 ABG HCO3 ABG O2 Saturation ABG Base Excess ABG Hemoglobin ABG Oxyhemoglobin ABG Sodium ABG Potassium ABG Glucose Oxyhemoglobin Carboxyhemoglobin Sodium Potassium Chloride Carbon Dioxide BUN Creatinine Glucose POC Glucose 148 H 127 H Lactic Acid Calcium Phosphorus Magnesium Ferritin Lactate Dehydrogenase C-Reactive Protein NT-Pro-B Natriuret Pep Total Protein Albumin Triglycerides Arterial Blood Glucose Urine pH Ur Specific [place] Coronavirus (PCR) 04/24/21 04/24/21 04/24/21 04:00 05:15 11:45 WBC RBC Hgb Hct MCV MCHC RDW Plt Count Lymph % (Auto) [place] % (Auto) Lymph # (Auto) [place] # (Auto) Seg Neutrophils % Seg Neuts % (Manual) Lymphocytes % (Manual) Monocytes % (Manual) Nucleated RBC % Seg Neutrophils # Seg Neutrophils # Man Lymphocytes # (Manual) Monocytes # (Manual) PT INR APTT D-Dimer Heparin Anti-Xa Level ABG pH POC ABG pCO2 POC ABG pO2 ABG pO2 ABG HCO3 ABG O2 Saturation ABG Base Excess ABG Hemoglobin ABG Oxyhemoglobin ABG Sodium ABG Potassium ABG Glucose Oxyhemoglobin Carboxyhemoglobin Sodium Potassium Chloride Carbon Dioxide BUN Creatinine 0.4 L Glucose 136 H POC Glucose 135 H 140 H Lactic Acid Calcium Phosphorus Magnesium Ferritin Lactate Dehydrogenase C-Reactive Protein NT-Pro-B Natriuret Pep Total Protein Albumin Triglycerides Arterial Blood Glucose Urine pH Ur Specific [place] Coronavirus (PCR) 04/24/21 16:06 WBC RBC Hgb Hct MCV MCHC RDW Plt Count Lymph % (Auto) [place] % (Auto) Lymph # (Auto) [place] # (Auto) Seg Neutrophils % Seg Neuts % (Manual) Lymphocytes % (Manual) Monocytes % (Manual) Nucleated RBC % Seg Neutrophils # Seg Neutrophils # Man Lymphocytes # (Manual) Monocytes # (Manual) PT INR APTT D-Dimer Heparin Anti-Xa Level ABG pH POC ABG pCO2 POC ABG pO2 ABG pO2 ABG HCO3 ABG O2 Saturation ABG Base Excess ABG Hemoglobin ABG Oxyhemoglobin ABG Sodium ABG Potassium ABG Glucose Oxyhemoglobin Carboxyhemoglobin Sodium Potassium Chloride Carbon Dioxide BUN Creatinine Glucose POC Glucose 141 H Lactic Acid Calcium Phosphorus Magnesium Ferritin Lactate Dehydrogenase C-Reactive Protein NT-Pro-B Natriuret Pep Total Protein Albumin Triglycerides Arterial Blood Glucose Urine pH Ur Specific [place] Coronavirus (PCR) Allied health notes reviewed: nursing
[2021-04-24] MEDS: INSULIN GLARGINE 100 UNITS/ML SUB-Q SCH (23:55)
[2021-04-25] MEDS: INSULIN LISPRO 100 UNIT/ML SUB-Q SCH ×3 (00:27→12:41)
[2021-04-25] MEDS: hydrALAZINE 25 MG TAB PO SCH ×3 (06:15→22:30)
[2021-04-25] MEDS: ARFORMOTEROL 15 MCG/2 ML NEBU IH SCH ×2 (08:38→20:12)
--- NOTE | 2021-04-25 09:29 | Progress Note ---
<DEBBY ELLISON - Last Filed: 04/25/21 20:34> Assessment and Plan Assessment and plan: This is a 61-year-old male with past medical history of HTN and DM admitted for sepsis and acute hypoxic respiratory failure 2/2 COVID pneumonia s/p Trach and PEG on 2/ Hospital Course to Date: 03/09: The patient was seen and evaluated today, and he was found to be hemodynamically stable. The patient is currently on BiPAP for possible COVID-19 pneumonia. He was started on Lovenox 1mg/kg for DVT ppx in the setting of d- dimer > 10,000. Infectious Disease was consulted. The patient is pending a TTE. 03/10: No acute events overnight, patient was intubated in the afternoon transferred to ICU 03/11: Patient started on Lantus, free water flushes increased, propofol drip resumed and oral antihypertensive added. 03/12: lantus increased, k at 5, will monitor. I updated his family and his stated that he is not vaccinated. He does have HTN and she will call the RN to update home medications. She did say he takes bystolic and amlopine. She inquired about ventilator and lab work. She had no further questions. 03/13: KVNG overnight. Patient remains hyperglycemic, basal insulin adjusted and increased to Q12hrs. Patient is overall net positive since admit X1 dose of IV lasix, repeat BMP this afternoon. 03/14: Failed SAT this am due to increase agitation, tachycardia and hypertension. Remains on propofol and fentanyl gtt. Hyperkalemia treated with PO kayaxalate. Patient responded to IV lasix yesterday additional dose again today for a net negative balance. Repeat BMP this afternoon. Insulin adjusted for hyperglycemia. 03/15: Remains encephalopathic, not following commansd. Orders placed for CT head/Brain and Neuro consulted. Rectal bleeding subsided, most likely due to hemorrhoids. H&H is stable will continue to monitor. Kayaxexalate for high K, repeat labs 4 to 6hrs post treatment. 03/16: Still agiated this am, CT head with no acute Abn. CXR and ABG noted- evolving pna and worsening hypoxia, now with low grade fevers. Sputum culture ordered, IV Abx added, ID on cosult. 03/17: This am ABG noted, hypoxia improved. Continue to wean FiO2 as tolerated. Still with low grade fevers, on IV Abx per ID. Still with periods of confusion despite sedation, seroquel increased. F/u CXR in the am 03/18: still very agitated especially when off sedation, with hypertension and tachycardia. Continue sedation for RASS -2, PRN antihypertensive for SPB greater than 160. This febrile this am, continue current IV abx per ID 03/19: Patient afebrile overnight, continue IV Abx per ID. ABG also improved this am, continue to wean FIO2 as tolerated. PRN antihypertensive for hypertension. 03/20: Hyperkalemia treated with Kayexalate, Good discontinued, vancomycin and cefepime stopped started Bactrim by ID. Steroid taper started. 03/21: BB started for hypertension, Seroquel increased for agitation and Librium started no acute events reported overnight. [facility] made vent changes 03/22: Adjustment to anxiolytics, respiratory rate on ventilator per [facility]. Patient noted to have bleeding hemorrhoids with clot, requested RN to remove bowel management system and will order Preparation H. 03/23: Given no confirmed DVT or PE (only superficial thrombus noted on Dopplers) therapeutic Lovenox changed to prophylactic Lovenox. Started on doxazosin to help with retention. Consulted surgery for tracheostomy and propofol discontinued. 03/24: Surgery consult completed, patient changed to prophylaxis anticoagulation, started on doxazosin yesterday with plans to remove Good catheter in 48 hours. Patient with slight hypokalemia today and given Kayexalate. No acute events reported overnight. 03/25: No acute events reported overnight. Patient remains on fentanyl drip and on CPAP trial this morning. 03/26: no acute events reported overnight. placed on CPAP this AM, remains on fent/librium. scheduled for trach/peg this week. 03/27: Hypoglycemic this am, will decreased lantus to Qhs. Plan for possible Trach and Peg by Gen Surg this am. Case management to arrange possible LTAC placement 03/28: KVNG overnight. Tolerating PST this am. Plan for trach and PEG tomorrow by Gen. Surgery, NPO after midnight. 03/29: No significant changes overnight. Plan for trach and Peg today. Case management to arrange possible LTAC placement 2/3. S/p Trach and PEG, no complications noted. High residual yesterday despite NPO status, reglan added X2 days. Per RN no residual this am, patient is tolerating TF. Continue to advance TF as tolerated. Norvasc added for hypertension. Pitting edema also appreciated, some diuretic might be beneficial, will d/w CCM. Continue daily PST as tolerated. 2: Patient remains on the vent still on fentanyl gtt with periods of agitation. PRN analgesia added, plan to start weaning off fentanyl gtt. Febrile this am, completed IV abx course. Will panculture for now, ID is also following. 04/01: Still febrile overnight, cultures result pending, continue IV ABx per ID. Failed PST this am. Continue daily PST and vent wean per [facility]. Case management to arrange possible placement. 04/02: KVNG overnight. Fevers improved overnight, continue to follow cultures data, IV ABx per ID. Continue daily PST and wean vent as per [facility].\ 04/03: Given low procalcitonin, unchanged CXR and cultures with no growth cefepime was discontinued by ID. LTAC evaluation ongoing. No acute events reported overnight. 04/04: IV Lasix stopped today, Seroquel taper started, fentanyl drip on hold and steroids stopped. Pressure support trial again today. 04/05: Patient had to be restarted on fentanyl drip therefore Seroquel was increased back to 250 twice daily and he was started on scheduled narcotics and efforts to wean fentanyl drip. Doxazosin was increased to twice daily as patient still had retention issues on doxazosin once a day. Patient was denied LTAC placement. CPAP trial today. 04/06: Right upper extremity ultrasound obtained due to edema which showed DVT. Patient started on heparin drip. Overnight patient had hypoxia, tachypnea, tachycardia, hypotension and FiO2 was increased to 100%. RT titrating as tolerated. Plan was to start T-piece trials today. Patient has been denied LT AC placement. 04/07: BLE dopplar, continue lasix per [facility], CXR in AM. Increase in fio2 overnight d/t desaturation. Wean FiO2 as tolerated. 04/08: Patient remains on 65% FiO2, s/p Lasix for 3 doses, hyperkalemia noted today and medically treated. [facility] plans to consult heme/onc once FiO2 decreased. Remains on heparin gtt 04/09: No acute events reported overnight, possible heme-onc consult on Saturday or Saturday regarding upper extremity DVT, wean FiO2 as tolerated. Repeat CT head on Monday 04/10: Patient mentation is unchanged, repeat CT head today. Remains on heparin gtt per protocol. Continue daily PST as tolerated. 04/11: Increased work of breathing and high RR overnight, vent FiO2 increased to 55%. Resolved this am, patient is tolerating PST, no acute distress noted. Wean Fio2 as tolerated for SPO2 above 92%, Follow up CXR and ABG in the am. Antihypertensive regimen adjusted for better BP control. 04/12: Patient with coarse lungs and increased secretion today. This am CXR noted with worsen infiltrate, 40 of Lasix given, repeat CXR in the am. Patient remains afebrile, complete IV Abx course, VSS. Transitioned to PO Eliquis overnight, continue to keep patient net negative for better lung compliance. Continue daily PST as tolerated. 04/13: Patient is off sedation this am. Remains unresponsive. Librium D/C and Seroquel was adjusted to Qhs, PRN analgesia for pain management. Patient responded well to IV lasix, this am CXR with some improvement, additional IV lasix ordered again today. high CO2 also noted from this am, ABG ordered. Patient is tolerating PST this am, SPO2 remains above 95%. Continue daily PST plan to get patient off the vent for possible SNF placemement 04/14: Patient mentation is unchanged despite reducing sedative agents. Will hold all scheduled sedatives agents for now, PRN analgesics for pain management and vent synchrony. Patient spike a temp this am, orders placed for cultures, IV abx per ID. Additional lasix today, F/u CXR in the am. Patient is tolerating PST this am. 04/15: Remains febrile overnight. Culture data pending, back on IV Abx per ID. Gentle fluid management with IV lasix. Keep patient at a net negative balance. Continue daily PST as tolerated. 04/16: Open eyes spontaneously this am, but still not following commands. MRI brain ordered. Continue to avoid any sedative agents. Patient continue to respond very well to IV diuretic, continue gentle diurese X3days as tolerated. Continue daily PST as tolerated. Plan is get patient off the vent for possible SNF placement. Patient remains febrile this am, now cefepine and Vanc, continue IV abx per ID. 04/17: We will repeat procalcitonin per ID, MRI brain pending, SNF placement pending, [facility] plans to start T-piece trials in the morning and will discontinue Good catheter again. 04/18: Overnight patient to be straight cath x2 but did eventually have spontaneous urine output today and Good catheter was not replaced, patient had MRI brain today and was started on T-piece trials. He received Versed for sedation for MRI brain. 04/19: Good catheter was not replaced overnight patient is still voiding, placed on T-piece today, scopolamine and Robinul restarted. 04/20: Patient T-piece trial again today, will decrease bowel regimen in a.m. for entering T-piece for 24 hours obtain gas in the a.m. Cefazolin increased 04/21: Patient remained on trach collar throughout the day, will be transitioned to IMCU. Good catheter was replaced overnight due to retention. 04/22: Patient continues to tolerate Trach collar, still with volume overload will continue with diuresis, monitor electrolytes, aggressive pulmonary toliet, aspiration precautions 04/23: Patient remains on trach collar which he is tolerating. Remains on cefazolin, Cardura and Lasix. 04/24: KVNG overnight. Patient is AAO, following commands, and tolerating T-piece. Continue PT 5X/week. Pending SNF vs Subacute rehab placement, case management to arrange. 04/25: KVNG overnight. Remains stable, tolerating T-piece. Plan for possible PSMV trial with speech once available. Assessment and Plan #Acute Hypoxic Respiratory Failure #COVID Pneumonia - Intubated on 03/10 due to worsen hypoxia on BIPAP - 2/ s/p Tracheostomy - T-piece- 28% and 5L - Pulmonary on consult - Continue Nebs per [facility] - Pulmonary hygiene - keep patient net negative for better lung compliance - Aspiration precaution HOB above 30 - Continue SPO2 monitoring for SPO2 goal above 92% #Sepsis #COVID Pneumonia #MSSA pneumonia -Infectious disease consulted, appreciate recommendations -S/p remdesivir for 5 days -S/p Actemra 03/10/2021 -f/u blood culture -Monitor WBC and temperature curve -s/p steroids -04/18 procal 0.19 -03/16 Fungitell and histoplasma negative -On high dose Cefazolin per ID #Acute Encephalopathy-improved - AAO, following commands - CT head/brain no acute Abn. - Repeat CT head and MRI brain noted - Avoid benzodiazepine to reduce the possibility of delirium - Prn analgesia for pain management - Maintenance of sleep-wake cycle - PT consulted, appreciate recommendations: PT recommends subacute rehab if patient does not qualify for LTAC #Hypertension - 03/09 Echocardiogram shows a mildly dilated ascending aorta, normal LV systolic function, mild concentric LVH, LVEF 60 to 65% - Continue current antihypertensive regimen - PRN Labetalol for SBP above 160 - Continue Blood pressure monitoring per protocol #Urinary retention - Good catheter removed 04/17 and replaced 04/21 - Continue Doxazosin BID - Strict intake and output - Avoid nephrotoxic medications; Renally dose medications - Monitor and replace electrolytes as needed - Trend BMP #Acute right upper extremity DVT - Bilateral lower extremity ultrasounds negative for DVT, superficial thrombus in left gastrocnemius vein - CTA chest shows no gross pulm embolism - bilateral upper extremity ultrasound shows DVT in right upper extremity - Continue PO Eliquis - SCDs to BLE while in bed - Transfuse hemoglobin less than 7 - Monitor for signs of bleeding #Endo:Type 2 DM - Continue high dose SSI Q6hrs - Lantus qHs - Avoid Hypoglycemia The high probability of a clinically significant, sudden or life threatening deterioration of the [Respiratory] system(s) required my full and direct attention, intervention and personal management. The aggregate critical care time was [60] minutes. This time is in addition to time spent performing repor jorge a procedures but includes the following: [x] Data Review and interpretation [x] Patient assessment and monitoring of vital signs [x] Documentation [x] Medication orders and management Disposition Plan: IMCU Total Time Spent with Patient (Minutes): 60 History Interval history: Patient seen and examined at the bedside. AAO, following commands. Tolerating T- piced at 28% & 5L. KVNG overnight Hospitalist Physical - Constitutional Vitals: Temp Pulse Resp BP Pulse Ox 98.6 F 107 H 18 116/80 100 04/25/21 08:00 04/25/21 08:00 04/25/21 08:00 04/25/21 06:15 04/25/21 08:37 General appearance: Present: no acute distress, well-nourished, obese - EENT Eyes: Present: PERRL ENT: hearing intact - Neck Neck: Present: normal ROM - Respiratory Respiratory effort: normal Respiratory: bilateral: rhonchi - Cardiovascular Rhythm: regular Heart Sounds: Present: S1 & S2 - Extremities Extremities: no ischemia, pulses intact, pulses symmetrical Extremity abnormal: edema - Peripheral Assessment Generalized Edema Type: Non-pitting Edema Degree: 3+ Capillary Refill: < 3 seconds Skin Temperature: Warm Peripheral Pulses: within normal limits - Abdominal General gastrointestinal: soft, non-distended, normal bowel sounds - Integumentary Integumentary: Present: warm, dry - Psychiatric Psychiatric: appropriate mood/affect, cooperative - Neurologic Neurologic: moves all extremities - Allied Health Allied health notes reviewed: nursing, case management Results - Labs CBC & Chem 7: 04/24/21 04:00 04/24/21 04:00 Labs: Laboratory Last Values WBC 12.9 K/mm3 (4.5-11.0) H 04/24/21 04:00 RBC 3.33 M/mm3 (3.65-5.03) L 04/24/21 04:00 Hgb 10.2 gm/dl (11.8-15.2) L 04/24/21 04:00 Hct 30.1 % (35.5-45.6) L 04/24/21 04:00 MCV 90 fl (84-94) 04/24/21 04:00 MCH 31 pg (28-32) 04/24/21 04:00 MCHC 34 % (32-34) 04/24/21 04:00 RDW 16.6 % (13.2-15.2) H 04/24/21 04:00 Plt Count 393 K/mm3 (140-440) 04/24/21 04:00 Lymph % (Auto) 7.6 % (13.4-35.0) L 03/31/21 13:30 Dickson % (Auto) 9.5 % (0.0-7.3) H 03/31/21 13:30 Eos % (Auto) 4.1 % (0.0-4.3) 03/31/21 13:30 Baso % (Auto) 0.5 % (0.0-1.8) 03/31/21 13:30 Lymph # (Auto) 0.6 K/mm3 (1.2-5.4) L 03/31/21 13:30 Dickson # (Auto) 0.7 K/mm3 (0.0-0.8) 03/31/21 13:30 Eos # (Auto) 0.3 K/mm3 (0.0-0.4) 03/31/21 13:30 Baso # (Auto) 0.0 K/mm3 (0.0-0.1) 03/31/21 13:30 Add Manual Diff Complete 04/11/21 06:47 Total Counted 100 04/11/21 06:47 Seg Neutrophils % 78.3 % (40.0-70.0) H 03/31/21 13:30 Seg Neuts % (Manual) 76.0 % (40.0-70.0) H 04/11/21 06:47 Band Neutrophils % 2.0 % 04/11/21 06:47 Lymphocytes % (Manual) 10.0 % (13.4-35.0) L 04/11/21 06:47 Reactive Lymphs % (Man) 0 % 04/11/21 06:47 Monocytes % (Manual) 7.0 % (0.0-7.3) 04/11/21 06:47 Eosinophils % (Manual) 4.0 % (0.0-4.3) 04/11/21 06:47 Basophils % (Manual) 0 % (0.0-1.8) 04/11/21 06:47 Metamyelocytes % 1.0 % 04/11/21 06:47 Myelocytes % 0 % 04/11/21 06:47 Promyelocytes % 0 % 04/11/21 06:47 Blast Cells % 0 % 04/11/21 06:47 Nucleated RBC % Not Reportable 04/11/21 06:47 Seg Neutrophils # 5.8 K/mm3 (1.8-7.7) 03/31/21 13:30 Seg Neutrophils # Man 8.3 K/mm3 (1.8-7.7) H 04/11/21 06:47 Band Neutrophils # 0.2 K/mm3 04/11/21 06:47 Lymphocytes # (Manual) 1.1 K/mm3 (1.2-5.4) L 04/11/21 06:47 Abs React Lymphs (Man) 0.0 K/mm3 04/11/21 06:47 Monocytes # (Manual) 0.8 K/mm3 (0.0-0.8) 04/11/21 06:47 Eosinophils # (Manual) 0.4 K/mm3 (0.0-0.4) 04/11/21 06:47 Basophils # (Manual) 0.0 K/mm3 (0.0-0.1) 04/11/21 06:47 Metamyelocytes # 0.1 K/mm3 04/11/21 06:47 Myelocytes # 0.0 K/mm3 04/11/21 06:47 Promyelocytes # 0.0 K/mm3 04/11/21 06:47 Blast Cells # 0.0 K/mm3 04/11/21 06:47 WBC Morphology Not Reportable 04/11/21 06:47 Hypersegmented Neuts Not Reportable 04/11/21 06:47 Hyposegmented Neuts Not Reportable 04/11/21 06:47 Hypogranular Neuts Not Reportable 04/11/21 06:47 Smudge Cells Not Reportable 04/11/21 06:47 Toxic Granulation 1+ 04/11/21 06:47 Toxic Vacuolation Not Reportable 04/11/21 06:47 Dohle Bodies Not Reportable 04/11/21 06:47 Pelger-Huet Anomaly Not Reportable 04/11/21 06:47 Mely Rods Not Reportable 04/11/21 06:47 Platelet Estimate Consistent w auto 04/11/21 06:47 Clumped Platelets Not Reportable 04/11/21 06:47 Plt Clumps, EDTA Not Reportable 04/11/21 06:47 Large Platelets Not Reportable 04/11/21 06:47 Giant Platelets Not Reportable 04/11/21 06:47 Platelet Satelliting Not Reportable 04/11/21 06:47 Plt Morphology Comment Not Reportable 04/11/21 06:47 RBC Morphology Not Reportable 04/11/21 06:47 Dimorphic RBCs Not Reportable 04/11/21 06:47 Polychromasia Not Reportable 04/11/21 06:47 Hypochromasia Not Reportable 04/11/21 06:47 Poikilocytosis Not Reportable 04/11/21 06:47 Anisocytosis 1+ 04/11/21 06:47 Microcytosis Not Reportable 04/11/21 06:47 Macrocytosis Not Reportable 04/11/21 06:47 Spherocytes Not Reportable 04/11/21 06:47 Pappenheimer Bodies Not Reportable 04/11/21 06:47 Sickle Cells Not Reportable 04/11/21 06:47 Target Cells Not Reportable 04/11/21 06:47 Tear Drop Cells Not Reportable 04/11/21 06:47 Ovalocytes Not Reportable 04/11/21 06:47 Helmet Cells Not Reportable 04/11/21 06:47 [place] Bodies Not Reportable 04/11/21 06:47 [place] Rings Not Reportable 04/11/21 06:47 [place] Cells Not Reportable 04/11/21 06:47 Bite Cells Not Reportable 04/11/21 06:47 Crenated Cell Not Reportable 04/11/21 06:47 Elliptocytes Not Reportable 04/11/21 06:47 Acanthocytes (Spur) Not Reportable 04/11/21 06:47 Rouleaux Not Reportable 04/11/21 06:47 Hemoglobin C Crystals Not Reportable 04/11/21 06:47 Schistocytes Not Reportable 04/11/21 06:47 Malaria parasites Not Reportable 04/11/21 06:47 Shaheen Bodies Not Reportable 04/11/21 06:47 Hem Pathologist Commnt No 04/11/21 06:47 PT 13.4 Sec. (12.2-14.9) 04/11/21 18:17 INR 0.92 (0.87-1.13) 04/11/21 18:17 APTT 61.1 Sec. (24.2-36.6) H* 04/11/21 18:17 D-Dimer 1359.12 ng/mlDDU (0-234) H 03/17/21 04:40 Heparin Anti-Xa Level 1.03 U.I./ml (0.3-0.7) H 04/12/21 05:11 ABG pH 7.503 (7.320-7.450) H 04/21/21 11:37 POC ABG pCO2 43.0 mmHg (32.0-48.0) 04/21/21 11:37 ABG pCO2 50.9 mm Hg 04/18/21 11:30 POC ABG pO2 92.3 mmHg (83-108) 04/21/21 11:37 ABG pO2 108.9 mm Hg (80.0-90.0) H 04/18/21 11:30 POC ABG HCO3 33.0 04/21/21 11:37 ABG HCO3 36.2 mmol/L (20.0-26.0) H 04/18/21 11:30 ABG O2 Saturation 98.2 (0-100) 04/21/21 11:37 ABG O2 Content 12.1 (0.0-44) 04/18/21 11:30 POC ABG Base Excess 9.0 04/21/21 11:37 ABG Base Excess 11.2 mmol/L (-2.0-3.0) H 04/18/21 11:30 ABG Hemoglobin 10.8 (12.0-17.5) L 04/21/21 11:37 ABG Oxyhemoglobin 97.8 (94-98) 04/21/21 11:37 ABG Carboxyhemoglobin 1.7 % (0.0-5.0) 04/18/21 11:30 ABG Methemoglobin 0.3 (0.0-1.5) 04/21/21 11:37 ABG Sodium 134.2 mmol/L (136.0-145.0) L 03/12/21 21:54 ABG Potassium 4.9 mmol/L (3.40-4.50) H 03/12/21 21:54 ABG Chloride 99.0 mmol/L (98-107) 03/12/21 21:54 ABG Glucose 306 mg/dL (65-95) H 03/12/21 21:54 Oxyhemoglobin 95.9 % (95.0-99.0) 04/18/21 11:30 Carboxyhemoglobin 0.1 (0.5-1.5) L 04/21/21 11:37 FiO2 40 % 04/18/21 11:30 FiO2 % 35.0 04/21/21 11:37 Sodium 142 mmol/L (137-145) 04/24/21 04:00 Potassium 3.9 mmol/L (3.6-5.0) 04/24/21 04:00 Chloride 103.8 mmol/L (98-107) 04/24/21 04:00 Carbon Dioxide 27 mmol/L (22-30) 04/24/21 04:00 Anion Gap 15 mmol/L 04/24/21 04:00 BUN 14 mg/dL (9-20) 04/24/21 04:00 Creatinine 0.4 mg/dL (0.8-1.3) L 04/24/21 04:00 Estimated GFR > 60 ml/min 04/24/21 04:00 BUN/Creatinine Ratio 35 % 04/24/21 04:00 Glucose 136 mg/dL (75-100) H 04/24/21 04:00 POC Glucose 142 mg/dL (70-105) H 04/25/21 05:27 Lactic Acid 1.90 mmol/L (0.7-2.0) 03/08/21 23:51 Calcium 9.4 mg/dL (8.4-10.2) 04/24/21 04:00 Phosphorus 3.60 mg/dL (2.5-4.5) 04/17/21 04:25 Magnesium 2.30 mg/dL (1.7-2.3) 04/19/21 04:26 Ferritin 976.4 ng/mL (30.0-300.0) H 03/15/21 04:00 Total Bilirubin 0.20 mg/dL (0.1-1.2) 03/12/21 08:03 AST 10 units/L (5-40) 03/12/21 08:03 ALT 16 units/L (7-56) 03/12/21 08:03 Alkaline Phosphatase 77 units/L (35-129) 03/12/21 08:03 Lactate Dehydrogenase 630 units/L (91-180) H 03/15/21 06:06 C-Reactive Protein 0.40 mg/dL (0.00-1.30) 03/17/21 04:40 NT-Pro-B Natriuret Pep 1053 pg/mL (0-900) H 03/08/21 20:24 Total Protein 6.0 g/dL (6.3-8.2) L 03/12/21 08:03 Albumin 2.9 g/dL (3.9-5) L 03/12/21 08:03 Albumin/Globulin Ratio 0.9 % 03/12/21 08:03 Triglycerides 305 mg/dL (2-149) H 03/22/21 07:26 Procalcitonin 0.19 ng/mL (<0.15) 04/18/21 04:20 Arterial Blood Glucose 306 mg/dL (65-95) H 03/12/21 21:54 Arterial Blood Ionized Calcium 5.0 mg/dL (4.6-5.3) 03/12/21 21:54 Urine Color Yellow (Yellow) 04/14/21 Unknown Urine Turbidity Clear (Clear) 04/14/21 Unknown Urine pH 8.0 (5.0-7.0) H 04/14/21 Unknown Ur Specific Chaplin 1.009 (1.003-1.030) 04/14/21 Unknown Urine Protein <15 mg/dl mg/dL (Negative) 04/14/21 Unknown Urine Glucose (UA) Neg mg/dL (Negative) 04/14/21 Unknown Urine Ketones Neg mg/dL (Negative) 04/14/21 Unknown Urine Blood Neg (Negative) 04/14/21 Unknown Urine Nitrite Neg (Negative) 04/14/21 Unknown Urine Bilirubin Neg (Negative) 04/14/21 Unknown Urine Urobilinogen 2.0 mg/dL (<2.0) 04/14/21 Unknown Ur Leukocyte Esterase Neg (Negative) 04/14/21 Unknown Urine WBC (Auto) < 1.0 /HPF (0.0-6.0) 04/14/21 Unknown Urine RBC (Auto) < 1.0 /HPF (0.0-6.0) 04/14/21 Unknown Urine Bacteria (Auto) 1+ /HPF (Negative) 03/09/21 04:10 Urine Mucus Few /HPF 03/09/21 04:10 Vancomycin Trough 16.8 ug/mL (5.0-20.0) 04/16/21 14:30 Coronavirus (PCR) Positive (Negative) A 03/09/21 08:00 Miscellaneous Test Flexitest 1 03/16/21 13:14 Good/IV: Voiding Method Indwelling Catheter Active Medications - Current Medications Current Medications: Generic Name Dose Route Start Last Admin Trade Name Freq PRN Reason Stop Dose Admin Acetaminophen 650 mg 03/09/21 01:04/24/21 15:07 Acetaminophen 325 Mg Tab PO 650 mg Q4H PRN Administration Pain MILD(1-3)/Fever >100.5/RAYO Albuterol 2.5 mg 03/09/21 01:26 03/18/21 21:06 Albuterol 2.5 Mg/3 Ml Nebu IH 2.5 mg Q4HRT PRN Administration Shortness Of Breath Amlodipine Besylate 10 mg 04/11/21 10:00 04/24/21 10:14 Amlodipine 5 Mg Tab PO 10 mg QDAY BLANCA Administration Apixaban 5 mg 04/18/21 22:00 04/24/21 22:16 Apixaban 5 Mg Tab PO 5 mg Q12HR BLANCA Administration Protocol Arformoterol Tartrate 15 mcg 03/11/21 20:00 04/25/21 08:38 Arformoterol 15 Mcg/2 Ml Nebu IH 15 mcg Q12HRT BLANCA Administration Dextrose 0 ml 03/20/21 10:52 Dextrose 10% *Hypoglycemia IV PRN PRN Hypoglycemia Docusate Sodium 100 mg 04/23/21 10:00 04/24/21 22:16 Docusate Sodium 100 Mg/10 Ml Oral Liqd PO 100 mg BID BLANCA Administration Doxazosin Mesylate 1 mg 04/05/21 22:00 04/24/21 22:16 Doxazosin 1 Mg Tab PO 1 mg BID BLANCA Administration Famotidine 20 mg 03/12/21 22:00 04/24/21 22:17 Famotidine 20 Mg Tab FEEDTUBE 20 mg BID BLANCA Administration Glycopyrrolate 2 mg 04/22/21 23:42 04/24/21 22:17 Glycopyrrolate 2 Mg Tab PO 2 mg TID BLANCA Administration Hydralazine HCl 50 mg 03/23/21 14:26 04/25/21 06:15 Hydralazine 25 Mg Tab PO 50 mg Q8HR BLANCA Administration Cefazolin Sodium 3 gm/ Sodium 100 mls @ 100 mls/30 min 04/20/21 14:00 04/25/21 06:10 Chloride IV 100 mls/30 min Q8HR BLANCA Administration Protocol Insulin Glargine 18 units 04/07/21 22:00 04/24/21 23:55 Insulin Glargine 100 Units/Ml SUB-Q 18 units QHS BLANCA Administration Insulin Human Lispro 0 unit 03/11/21 18:00 04/25/21 06:25 Insulin Lispro 100 Unit/Ml SUB-Q Not Given Q6HR [facility] Protocol Metoprolol Tartrate 12.5 mg 03/21/21 22:00 04/24/21 22:16 Metoprolol Tartrate 25 Mg Tab PO 12.5 mg BID BLANCA Administration Ondansetron HCl 4 mg 03/09/21 01:26 04/13/21 16:17 Ondansetron 4 Mg/2 Ml Inj IV 4 mg Q8H PRN Administration Nausea And Vomiting Oxycodone HCl 5 mg 04/13/21 12:34 04/24/21 10:14 Oxycodone 5 Mg Tab PO 5 mg Q6HR PRN Administration Pain, Moderate (4-6) Phenyleph/Shark Oil/Min Oil/Petrol 1 applic 03/22/21 17:35 04/06/21 04:04 Pe/Mo/Pet,Wh 10 Gm Tube PA 1 applic Q6HR PRN Administration Hemorrhoids Scopolamine 1 each 04/19/21 13:00 04/22/21 09:49 Scopolamine Transdermal Patch 72 Hr TD 1 each Q3D BLANCA Administration Sodium Chloride 10 ml 03/09/21 10:00 04/24/21 22:19 Sodium Chloride 0.9% 10 Ml Flush Syringe IV 10 ml BID BLANCA Administration Sodium Chloride 10 ml 03/09/21 01:26 04/10/21 21:07 Sodium Chloride 0.9% 10 Ml Flush Syringe IV 10 ml PRN PRN Administration LINE FLUSH Nutrition/Malnutrition Assess - Dietary Evaluation Nutrition/Malnutrition Findings: Nutrition Notes Start: 03/09/21 08:49 Freq: Status: Active Protocol: Document 04/21/21 14:27 [facility] (Rec: 04/21/21 14:29 [facility] [id number]) Nutrition Notes Initial or Follow up Reassessment Current Diagnosis Diabetes,Sepsis,Hypertension, Respiratory Failure Other Pertinent Diagnosis COVID-19, Bilateral Pneumonia. Current Diet TF-Glucerna 1.2 at 70 ml/hr Labs/Tests reviewed Pertinent Medications Lasix Height 5 ft 11 in Weight 122.4 kg [place] Body Weight (kg) 78.18 BMI 37.6 Weight Status Obese Subjective/Other Information Pt tolerating T-piece trials for past two days. Per RN, will move to [facility]. Pt continues to tolerate TF at goal rate. Percent of energy/protein needs met: 82% energy 78% pro Burn Absent Trauma Absent #1 Nutrition Diagnosis Inadequate oral intake Diagnosis Progress(for reassessment Continues documentation) Is patient on ventilator? No Is Patient Ambulatory and/or Out of Bed No REE-([facility]-confined to bed) 5799.975 Calculation Used for Recommendations 70-80% energy needs Additional Notes Energy needs: 3231-2846 kcal/ day Pro needs 1.3g/kg adjBW: 130g/ day Fluid needs 1ml/kcal Nutrition Intervention Nutrition Support: Continue Glucerna 1.2 at 70ml/ hr with 110ml water flush q4h. Kcal 2,016 Protein (gm) 101 Carbohydrates (gm) 192 Fat (gm) 101 Fluid (mL) 1,352 Fiber (gm) 27 Goal #1 TF tolerance Goal #2 TF to meet at least 75% energy and pro needs Follow-Up By: 04/28/21 Additional Comments F/U: stable TF, wt, resp status <ARABELLA CASTILLO - Last Filed: 04/26/21 07:32> Assessment and Plan Assessment and plan: I saw and evaluated the patient. I agree with the findings and the plan of care as documented in the Nurse Practitioner's~note, with the following corrections and additions. Hospitalist Physical - Constitutional Vitals: Temp Pulse Resp BP Pulse Ox 98.6 F 95 H 23 138/83 95 04/26/21 04:00 04/26/21 06:03 04/26/21 06:00 04/26/21 06:03 04/26/21 06:00 Results - Labs CBC & Chem 7: 04/24/21 04:00 04/25/21 15:04 Labs: Laboratory Last Values WBC 12.9 K/mm3 (4.5-11.0) H 04/24/21 04:00 RBC 3.33 M/mm3 (3.65-5.03) L 04/24/21 04:00 Hgb 10.2 gm/dl (11.8-15.2) L 04/24/21 04:00 Hct 30.1 % (35.5-45.6) L 04/24/21 04:00 MCV 90 fl (84-94) 04/24/21 04:00 MCH 31 pg (28-32) 04/24/21 04:00 MCHC 34 % (32-34) 04/24/21 04:00 RDW 16.6 % (13.2-15.2) H 04/24/21 04:00 Plt Count 393 K/mm3 (140-440) 04/24/21 04:00 Lymph % (Auto) 7.6 % (13.4-35.0) L 03/31/21 13:30 Dickson % (Auto) 9.5 % (0.0-7.3) H 03/31/21 13:30 Eos % (Auto) 4.1 % (0.0-4.3) 03/31/21 13:30 Baso % (Auto) 0.5 % (0.0-1.8) 03/31/21 13:30 Lymph # (Auto) 0.6 K/mm3 (1.2-5.4) L 03/31/21 13:30 Dickson # (Auto) 0.7 K/mm3 (0.0-0.8) 03/31/21 13:30 Eos # (Auto) 0.3 K/mm3 (0.0-0.4) 03/31/21 13:30 Baso # (Auto) 0.0 K/mm3 (0.0-0.1) 03/31/21 13:30 Add Manual Diff Complete 04/11/21 06:47 Total Counted 100 04/11/21 06:47 Seg Neutrophils % 78.3 % (40.0-70.0) H 03/31/21 13:30 Seg Neuts % (Manual) 76.0 % (40.0-70.0) H 04/11/21 06:47 Band Neutrophils % 2.0 % 04/11/21 06:47 Lymphocytes % (Manual) 10.0 % (13.4-35.0) L 04/11/21 06:47 Reactive Lymphs % (Man) 0 % 04/11/21 06:47 Monocytes % (Manual) 7.0 % (0.0-7.3) 04/11/21 06:47 Eosinophils % (Manual) 4.0 % (0.0-4.3) 04/11/21 06:47 Basophils % (Manual) 0 % (0.0-1.8) 04/11/21 06:47 Metamyelocytes % 1.0 % 04/11/21 06:47 Myelocytes % 0 % 04/11/21 06:47 Promyelocytes % 0 % 04/11/21 06:47 Blast Cells % 0 % 04/11/21 06:47 Nucleated RBC % Not Reportable 04/11/21 06:47 Seg Neutrophils # 5.8 K/mm3 (1.8-7.7) 03/31/21 13:30 Seg Neutrophils # Man 8.3 K/mm3 (1.8-7.7) H 04/11/21 06:47 Band Neutrophils # 0.2 K/mm3 04/11/21 06:47 Lymphocytes # (Manual) 1.1 K/mm3 (1.2-5.4) L 04/11/21 06:47 Abs React Lymphs (Man) 0.0 K/mm3 04/11/21 06:47 Monocytes # (Manual) 0.8 K/mm3 (0.0-0.8) 04/11/21 06:47 Eosinophils # (Manual) 0.4 K/mm3 (0.0-0.4) 04/11/21 06:47 Basophils # (Manual) 0.0 K/mm3 (0.0-0.1) 04/11/21 06:47 Metamyelocytes # 0.1 K/mm3 04/11/21 06:47 Myelocytes # 0.0 K/mm3 04/11/21 06:47 Promyelocytes # 0.0 K/mm3 04/11/21 06:47 Blast Cells # 0.0 K/mm3 04/11/21 06:47 WBC Morphology Not Reportable 04/11/21 06:47 Hypersegmented Neuts Not Reportable 04/11/21 06:47 Hyposegmented Neuts Not Reportable 04/11/21 06:47 Hypogranular Neuts Not Reportable 04/11/21 06:47 Smudge Cells Not Reportable 04/11/21 06:47 Toxic Granulation 1+ 04/11/21 06:47 Toxic Vacuolation Not Reportable 04/11/21 06:47 Dohle Bodies Not Reportable 04/11/21 06:47 Pelger-Huet Anomaly Not Reportable 04/11/21 06:47 Mely Rods Not Reportable 04/11/21 06:47 Platelet Estimate Consistent w auto 04/11/21 06:47 Clumped Platelets Not Reportable 04/11/21 06:47 Plt Clumps, EDTA Not Reportable 04/11/21 06:47 Large Platelets Not Reportable 04/11/21 06:47 Giant Platelets Not Reportable 04/11/21 06:47 Platelet Satelliting Not Reportable 04/11/21 06:47 Plt Morphology Comment Not Reportable 04/11/21 06:47 RBC Morphology Not Reportable 04/11/21 06:47 Dimorphic RBCs Not Reportable 04/11/21 06:47 Polychromasia Not Reportable 04/11/21 06:47 Hypochromasia Not Reportable 04/11/21 06:47 Poikilocytosis Not Reportable 04/11/21 06:47 Anisocytosis 1+ 04/11/21 06:47 Microcytosis Not Reportable 04/11/21 06:47 Macrocytosis Not Reportable 04/11/21 06:47 Spherocytes Not Reportable 04/11/21 06:47 Pappenheimer Bodies Not Reportable 04/11/21 06:47 Sickle Cells Not Reportable 04/11/21 06:47 Target Cells Not Reportable 04/11/21 06:47 Tear Drop Cells Not Reportable 04/11/21 06:47 Ovalocytes Not Reportable 04/11/21 06:47 Helmet Cells Not Reportable 04/11/21 06:47 Longo-[place] Bodies Not Reportable 04/11/21 06:47 [place] Rings Not Reportable 04/11/21 06:47 Shama Cells Not Reportable 04/11/21 06:47 Bite Cells Not Reportable 04/11/21 06:47 Crenated Cell Not Reportable 04/11/21 06:47 Elliptocytes Not Reportable 04/11/21 06:47 Acanthocytes (Spur) Not Reportable 04/11/21 06:47 Rouleaux Not Reportable 04/11/21 06:47 Hemoglobin C Crystals Not Reportable 04/11/21 06:47 Schistocytes Not Reportable 04/11/21 06:47 Malaria parasites Not Reportable 04/11/21 06:47 Shaheen Bodies Not Reportable 04/11/21 06:47 Hem Pathologist Commnt No 04/11/21 06:47 PT 13.4 Sec. (12.2-14.9) 04/11/21 18:17 INR 0.92 (0.87-1.13) 04/11/21 18:17 APTT 61.1 Sec. (24.2-36.6) H* 02/15/22 18:17 D-Dimer 1359.12 ng/mlDDU (0-234) H 03/17/21 04:40 Heparin Anti-Xa Level 1.03 U.I./ml (0.3-0.7) H 04/12/21 05:11 ABG pH 7.503 (7.320-7.450) H 04/21/21 11:37 POC ABG pCO2 43.0 mmHg (32.0-48.0) 04/21/21 11:37 ABG pCO2 50.9 mm Hg 04/18/21 11:30 POC ABG pO2 92.3 mmHg (83-108) 04/21/21 11:37 ABG pO2 108.9 mm Hg (80.0-90.0) H 04/18/21 11:30 POC ABG HCO3 33.0 04/21/21 11:37 ABG HCO3 36.2 mmol/L (20.0-26.0) H 04/18/21 11:30 ABG O2 Saturation 98.2 (0-100) 04/21/21 11:37 ABG O2 Content 12.1 (0.0-44) 04/18/21 11:30 POC ABG Base Excess 9.0 04/21/21 11:37 ABG Base Excess 11.2 mmol/L (-2.0-3.0) H 04/18/21 11:30 ABG Hemoglobin 10.8 (12.0-17.5) L 04/21/21 11:37 ABG Oxyhemoglobin 97.8 (94-98) 04/21/21 11:37 ABG Carboxyhemoglobin 1.7 % (0.0-5.0) 04/18/21 11:30 ABG Methemoglobin 0.3 (0.0-1.5) 04/21/21 11:37 ABG Sodium 134.2 mmol/L (136.0-145.0) L 03/12/21 21:54 ABG Potassium 4.9 mmol/L (3.40-4.50) H 03/12/21 21:54 ABG Chloride 99.0 mmol/L (98-107) 03/12/21 21:54 ABG Glucose 306 mg/dL (65-95) H 03/12/21 21:54 Oxyhemoglobin 95.9 % (95.0-99.0) 04/18/21 11:30 Carboxyhemoglobin 0.1 (0.5-1.5) L 04/21/21 11:37 FiO2 40 % 04/18/21 11:30 FiO2 % 35.0 04/21/21 11:37 Sodium 135 mmol/L (137-145) L 04/25/21 15:04 Potassium 4.5 mmol/L (3.6-5.0) 04/25/21 15:04 Chloride 101.5 mmol/L (98-107) 04/25/21 15:04 Carbon Dioxide 24 mmol/L (22-30) 04/25/21 15:04 Anion Gap 14 mmol/L 04/25/21 15:04 BUN 11 mg/dL (9-20) 04/25/21 15:04 Creatinine 0.4 mg/dL (0.8-1.3) L 04/25/21 15:04 Estimated GFR > 60 ml/min 04/25/21 15:04 BUN/Creatinine Ratio 28 % 04/25/21 15:04 Glucose 142 mg/dL (75-100) H 04/25/21 15:04 POC Glucose 135 mg/dL (70-105) H 04/26/21 05:36 Lactic Acid 1.90 mmol/L (0.7-2.0) 03/08/21 23:51 Calcium 9.0 mg/dL (8.4-10.2) 04/25/21 15:04 Phosphorus 3.70 mg/dL (2.5-4.5) 04/25/21 15:04 Magnesium 2.30 mg/dL (1.7-2.3) 04/25/21 15:04 Ferritin 976.4 ng/mL (30.0-300.0) H 03/15/21 04:00 Total Bilirubin 0.20 mg/dL (0.1-1.2) 03/12/21 08:03 AST 10 units/L (5-40) 03/12/21 08:03 ALT 16 units/L (7-56) 03/12/21 08:03 Alkaline Phosphatase 77 units/L (35-129) 03/12/21 08:03 Lactate Dehydrogenase 630 units/L (91-180) H 03/15/21 06:06 C-Reactive Protein 0.40 mg/dL (0.00-1.30) 03/17/21 04:40 NT-Pro-B Natriuret Pep 1053 pg/mL (0-900) H 03/08/21 20:24 Total Protein 6.0 g/dL (6.3-8.2) L 03/12/21 08:03 Albumin 2.9 g/dL (3.9-5) L 03/12/21 08:03 Albumin/Globulin Ratio 0.9 % 03/12/21 08:03 Triglycerides 305 mg/dL (2-149) H 03/22/21 07:26 Procalcitonin 0.19 ng/mL (<0.15) 04/18/21 04:20 Arterial Blood Glucose 306 mg/dL (65-95) H 03/12/21 21:54 Arterial Blood Ionized Calcium 5.0 mg/dL (4.6-5.3) 03/12/21 21:54 Urine Color Yellow (Yellow) 04/14/21 Unknown Urine Turbidity Clear (Clear) 04/14/21 Unknown Urine pH 8.0 (5.0-7.0) H 04/14/21 Unknown Ur Specific Chaplin 1.009 (1.003-1.030) 04/14/21 Unknown Urine Protein <15 mg/dl mg/dL (Negative) 04/14/21 Unknown Urine Glucose (UA) Neg mg/dL (Negative) 04/14/21 Unknown Urine Ketones Neg mg/dL (Negative) 04/14/21 Unknown Urine Blood Neg (Negative) 04/14/21 Unknown Urine Nitrite Neg (Negative) 04/14/21 Unknown Urine Bilirubin Neg (Negative) 04/14/21 Unknown Urine Urobilinogen 2.0 mg/dL (<2.0) 04/14/21 Unknown Ur Leukocyte Esterase Neg (Negative) 04/14/21 Unknown Urine WBC (Auto) < 1.0 /HPF (0.0-6.0) 04/14/21 Unknown Urine RBC (Auto) < 1.0 /HPF (0.0-6.0) 04/14/21 Unknown Urine Bacteria (Auto) 1+ /HPF (Negative) 03/09/21 04:10 Urine Mucus Few /HPF 03/09/21 04:10 Vancomycin Trough 16.8 ug/mL (5.0-20.0) 04/16/21 14:30 Coronavirus (PCR) Positive (Negative) A 03/09/21 08:00 Miscellaneous Test Flexitest 1 03/16/21 13:14 Good/IV: Voiding Method Indwelling Catheter Active Medications - Current Medications Current Medications: Generic Name Dose Route Start Last Admin Trade Name Freq PRN Reason Stop Dose Admin Acetaminophen 650 mg 03/09/21 01:26 04/24/21 15:07 Acetaminophen 325 Mg Tab PO 650 mg Q4H PRN Administration Pain MILD(1-3)/Fever >100.5/RAYO Albuterol 2.5 mg 03/09/21 01:26 03/18/21 21:06 Albuterol 2.5 Mg/3 Ml Nebu IH 2.5 mg Q4HRT PRN Administration Shortness Of Breath Amlodipine Besylate 10 mg 04/11/21 10:00 04/25/21 09:53 Amlodipine 5 Mg Tab PO 10 mg QDAY BLANCA Administration Apixaban 5 mg 04/18/21 22:00 04/25/21 22:30 Apixaban 5 Mg Tab PO 5 mg Q12HR BLANCA Administration Protocol Arformoterol Tartrate 15 mcg 03/11/21 20:00 04/25/21 20:12 Arformoterol 15 Mcg/2 Ml Nebu IH 15 mcg Q12HRT BLANCA Administration Dextrose 0 ml 03/20/21 10:52 Dextrose 10% *Hypoglycemia IV PRN PRN Hypoglycemia Docusate Sodium 100 mg 04/23/21 10:00 04/25/21 22:30 Docusate Sodium 100 Mg/10 Ml Oral Liqd PO 100 mg BID BLANCA Administration Doxazosin Mesylate 1 mg 04/05/21 22:00 04/25/21 22:30 Doxazosin 1 Mg Tab PO 1 mg BID BLANCA Administration Famotidine 20 mg 03/12/21 22:00 04/25/21 22:30 Famotidine 20 Mg Tab FEEDTUBE 20 mg BID BLANCA Administration Glycopyrrolate 2 mg 04/22/21 23:42 04/25/21 22:30 Glycopyrrolate 2 Mg Tab PO 2 mg TID BLANCA Administration Hydralazine HCl 50 mg 03/23/21 14:26 04/26/21 06:03 Hydralazine 25 Mg Tab PO 50 mg Q8HR BLANCA Administration Cefazolin Sodium 3 gm/ Sodium 100 mls @ 100 mls/30 min 04/20/21 14:00 06:02 Chloride IV 05/04/21 06:29 100 mls/30 min Q8HR BLANCA Administration Protocol Insulin Glargine 18 units 04/07/21 22:00 04/25/21 23:40 Insulin Glargine 100 Units/Ml SUB-Q 18 units QHS BLANCA Administration Insulin Human Lispro 0 unit 03/11/21 18:00 04/26/21 06:04 Insulin Lispro 100 Unit/Ml SUB-Q Not Given Q6HR [facility] Protocol Metoprolol Tartrate 12.5 mg 03/21/21 22:00 04/25/21 22:30 Metoprolol Tartrate 25 Mg Tab PO 12.5 mg BID BLANCA Administration Ondansetron HCl 4 mg 03/09/21 01:26 04/13/21 16:17 Ondansetron 4 Mg/2 Ml Inj IV 4 mg Q8H PRN Administration Nausea And Vomiting Oxycodone HCl 5 mg 04/13/21 12:34 04/24/21 10:14 Oxycodone 5 Mg Tab PO 5 mg Q6HR PRN Administration Pain, Moderate (4-6) Phenyleph/Shark Oil/Min Oil/Petrol 1 applic 03/22/21 17:35 04/06/21 04:04 Pe/Mo/Pet,Wh 10 Applic/28 Gm Tube PA 1 applic Q6HR PRN Administration Hemorrhoids Scopolamine 1 each 04/19/21 13:00 04/25/21 09:53 Scopolamine Transdermal Patch 72 Hr TD 1 each Q3D BLANCA Administration Sodium Chloride 10 ml 03/09/21 10:00 04/25/21 22:30 Sodium Chloride 0.9% 10 Ml Flush Syringe IV 10 ml BID BLANCA Administration Sodium Chloride 10 ml 03/09/21 01:26 04/10/21 21:07 Sodium Chloride 0.9% 10 Ml Flush Syringe IV 10 ml PRN PRN Administration LINE FLUSH Nutrition/Malnutrition Assess - Dietary Evaluation Nutrition/Malnutrition Findings: Nutrition Notes Start: 03/09/21 08:49 Freq: Status: Active Protocol: Document 04/21/21 14:27 [facility] (Rec: 04/21/21 14:29 [facility] [id number]) Nutrition Notes Initial or Follow up Reassessment Current Diagnosis Diabetes,Sepsis,Hypertension, Respiratory Failure Other Pertinent Diagnosis COVID-19, Bilateral Pneumonia. Current Diet TF-Glucerna 1.2 at 70 ml/hr Labs/Tests reviewed Pertinent Medications Lasix Height 5 ft 11 in Weight 122.4 kg [place] Body Weight (kg) 78.18 BMI 37.6 Weight Status Obese Subjective/Other Information Pt tolerating T-piece trials for past two days. Per RN, will move to [facility]. Pt continues to tolerate TF at goal rate. Percent of energy/protein needs met: 82% energy 78% pro Burn Absent Trauma Absent #1 Nutrition Diagnosis Inadequate oral intake Diagnosis Progress(for reassessment Continues documentation) Is patient on ventilator? No Is Patient Ambulatory and/or Out of Bed No REE-([facility]-confined to bed) 0118.374 Calculation Used for Recommendations 70-80% energy needs Additional Notes Energy needs: 0529-2979 kcal/ day Pro needs 1.3g/kg adjBW: 130g/ day Fluid needs 1ml/kcal Nutrition Intervention Nutrition Support: Continue Glucerna 1.2 at 70ml/ hr with 110ml water flush q4h. Kcal 2,016 Protein (gm) 101 Carbohydrates (gm) 192 Fat (gm) 101 Fluid (mL) 1,352 Fiber (gm) 27 Goal #1 TF tolerance Goal #2 TF to meet at least 75% energy and pro needs Follow-Up By: 04/28/21 Additional Comments F/U: stable TF, wt, resp status
[2021-04-25] MEDS: DOCUSATE SODIUM 100 MG/10 ML ORAL LIQD PO SCH ×2 (09:53→22:30)
[2021-04-25] MEDS: SCOPOLAMINE TRANSDERMAL PATCH 72 HR TD SCH (09:53)
[2021-04-25] MEDS: amLODIPine 5 MG TAB PO SCH (09:53)
[2021-04-25] MEDS: FAMOTIDINE 20 MG TAB FEEDTUBE SCH ×2 (09:53→22:30)
[2021-04-25] MEDS: APIXABAN 5 MG TAB PO SCH ×2 (09:54→22:30)
[2021-04-25] MEDS: DOXAZOSIN 1 MG TAB PO SCH ×2 (09:54→22:30)
[2021-04-25] MEDS: GLYCOPYRROLATE 2 MG TAB PO SCH ×3 (09:54→22:30)
[2021-04-25] MEDS: METOPROLOL TARTRATE 25 MG TAB PO SCH ×2 (09:54→22:30)
--- NOTE | 2021-04-25 13:11 | Progress Note ---
Assessment and Plan Acute hypoxemic respiratory failure, on continuous noninvasive ventilation COVID-19 infection Bilateral pneumonia History of diabetes Obesity Hypertension Leukocytosis Possible venous thromboembolic phenomena with significantly elevated D-dimers DM II Elevated serum inflammatory markers to include CRP levels, ferritin and LDH - follow swallow evaluation - continue RTC t-piece as tolerated - continue care as below otherwise; - continue to wean supplemental oxygen for target O2 sat's > 90% acutely - aspiration precautions - continue lung protective strategies - continue bronchodilators with routiune trach care and pulmonary hygiene per RT - wean per pulmonary driven protocols otherwise - continue accuchecks with glycemic control per SSI for target blood glucose < 180 mg/dL - avoid nephrotoxins, renally dose all medications - avoid benzodiazepine's, reduce the possibility of delirium - AB's per ID rec's - prn analgesia per pain score - Maintenance of sleep-wake cycle, avoid delirium - G.I. & VTE prophylaxis - PT/OT/ROM exercises - mobility protocols for pressure ulcer prophylaxis - Monitor hemodynamics closely - continue other care per attending / other consultants - discharge planning ongoing concurrently COVID SPECIFIC INTERVENTIONS - Remdesivir as per ID/Pulmonary developed protocols (received) - continue systemic steroids for severe COVID-19 infection empirically (Decadron) - follow repeat COVID tests results - zinc and vitamin C supplementation - Monitor inflammatory markers per facility protocol - ferritin, Ddimer, CRP - therapeutic anticoagulation per system Protocol based on d-dimer and clinical considerations (treatment dose) - contact and airborne isolation discontinued .... Re-evaluate in am & prn Subjective Date of service: 04/25/21 Principal diagnosis: COVID-19 infection; DM II; Bilateral pneumonia; Obesity; HTN Interval history: Patient is seen today for: Acute hypoxemic respiratory failure; COVID-19 infection; DM II; Bilateral pneumonia; Obesity; HTN Seen and examined at bedside; 24hour events reviewed; nursing and respiratory care staff consulted; no adverse overnight events reported to me; resting in bed; remains on RTC t-piece and tolerating well; for swallow evaluation today Objective Vital Signs - 12hr 04/25/21 04/25/21 04/25/21 02:00 03:00 04:00 Temperature 98.3 F Pulse Rate 99 H 100 H 98 H Pulse Rate [ Bilateral Throughout] Pulse Rate [ 98 H From Monitor] Respiratory 20 28 H 27 H Rate Respiratory Rate [Bilateral Throughout] Blood Pressure 124/73 126/73 119/65 O2 Sat by Pulse 96 98 96 Oximetry O2 Sat by Pulse Oximetry [ Assessment] 04/25/21 04/25/21 04/25/21 05:00 06:00 06:15 Temperature Pulse Rate 98 H 99 H 99 H Pulse Rate [ Bilateral Throughout] Pulse Rate [ From Monitor] Respiratory 25 H 24 Rate Respiratory Rate [Bilateral Throughout] Blood Pressure 107/72 116/80 116/80 O2 Sat by Pulse 100 100 Oximetry O2 Sat by Pulse Oximetry [ Assessment] 04/25/21 04/25/21 04/25/21 07:00 08:00 08:37 Temperature 98.6 F Pulse Rate 101 H 110 H Pulse Rate [ 107 H Bilateral Throughout] Pulse Rate [ 97 H From Monitor] Respiratory 26 H 23 Rate Respiratory 18 Rate [Bilateral Throughout] Blood Pressure 130/82 130/82 O2 Sat by Pulse 99 99 100 Oximetry O2 Sat by Pulse 99 Oximetry [ Assessment] 04/25/21 04/25/21 04/25/21 09:00 09:53 09:54 Temperature Pulse Rate 105 H 103 H 102 H Pulse Rate [ Bilateral Throughout] Pulse Rate [ From Monitor] Respiratory 34 H Rate Respiratory Rate [Bilateral Throughout] Blood Pressure 130/92 130/92 130/92 O2 Sat by Pulse 96 Oximetry O2 Sat by Pulse Oximetry [ Assessment] 04/25/21 04/25/21 04/25/21 10:00 11:00 12:00 Temperature 98.4 F Pulse Rate 101 H 90 91 H Pulse Rate [ Bilateral Throughout] Pulse Rate [ 95 H From Monitor] Respiratory 29 H 24 30 H Rate Respiratory Rate [Bilateral Throughout] Blood Pressure 141/91 124/77 120/77 O2 Sat by Pulse 98 98 96 Oximetry O2 Sat by Pulse Oximetry [ Assessment] Constitutional: no acute distress, other (elderly obese male with mildly increased respiratory effort at rest) Eyes: non-icteric, other ENT: oropharynx moist, other (+ midline tracheostomy) Neck: supple, no lymphadenopathy, lymphadenopathy, no JVD, other (large circumference) Effort: mildly labored Ascultation: Bilateral: diminished breath sounds, rhonchi Percussion: Bilateral: not dull Cardiovascular: regular rate and rhythm, other (tachycardia, S1,S2) Gastrointestinal: normoactive bowel sounds, soft, non-tender, non-distended (protuberant) Integumentary: normal Extremities: no cyanosis, pulses normal, no ischemia or petechiae, edema (upper extremities), other Neurologic: non-focal exam (grossly), pupils equal and round, CN II-XII normal, other (follows simple prompts) Psychiatric: mood appropriate, affect normal CBC and BMP: 04/24/21 04:00 04/25/21 15:04 ABG, PT/INR, D-dimer: ABG ABG pH 7.503 (7.320-7.450) H 04/21/21 11:37 POC ABG pCO2 43.0 mmHg (32.0-48.0) 04/21/21 11:37 ABG pCO2 50.9 mm Hg 04/18/21 11:30 POC ABG pO2 92.3 mmHg (83-108) 04/21/21 11:37 ABG pO2 108.9 mm Hg (80.0-90.0) H 04/18/21 11:30 POC ABG HCO3 33.0 04/21/21 11:37 ABG O2 Saturation 98.2 (0-100) 04/21/21 11:37 PT/INR, D-dimer PT 13.4 Sec. (12.2-14.9) 04/11/21 18:17 INR 0.92 (0.87-1.13) 04/11/21 18:17 D-Dimer 1359.12 ng/mlDDU (0-234) H 03/17/21 04:40 Abnormal lab findings: Abnormal Labs 03/08/21 03/08/21 03/08/21 20:24 20:24 20:24 WBC 22.6 H RBC 5.44 H Hgb 15.7 H Hct 49.2 H MCV MCHC RDW Plt Count Lymph % (Auto) [place] % (Auto) Lymph # (Auto) [place] # (Auto) Seg Neutrophils % Seg Neuts % (Manual) 83.0 H Lymphocytes % (Manual) 9.0 L Monocytes % (Manual) 8.0 H Nucleated RBC % Seg Neutrophils # Seg Neutrophils # Man 18.8 H Lymphocytes # (Manual) Monocytes # (Manual) 1.8 H PT 16.1 H INR 1.17 H APTT D-Dimer > 88398 H Heparin Anti-Xa Level ABG pH POC ABG pCO2 POC ABG pO2 ABG pO2 ABG HCO3 ABG O2 Saturation ABG Base Excess ABG Hemoglobin ABG Oxyhemoglobin ABG Sodium ABG Potassium ABG Glucose Oxyhemoglobin Carboxyhemoglobin Sodium 136 L Potassium Chloride 93.9 L Carbon Dioxide BUN 29 H Creatinine Glucose 208 H POC Glucose Lactic Acid Calcium Phosphorus Magnesium Ferritin Lactate Dehydrogenase 624 H C-Reactive Protein 18.00 H NT-Pro-B Natriuret Pep 1053 H Total Protein Albumin Triglycerides Arterial Blood Glucose Urine pH Ur Specific [place] Coronavirus (PCR) 03/08/21 03/08/21 03/09/21 20:24 20:24 04:10 WBC RBC Hgb Hct MCV MCHC RDW Plt Count Lymph % (Auto) [place] % (Auto) Lymph # (Auto) [place] # (Auto) Seg Neutrophils % Seg Neuts % (Manual) Lymphocytes % (Manual) Monocytes % (Manual) Nucleated RBC % Seg Neutrophils # Seg Neutrophils # Man Lymphocytes # (Manual) Monocytes # (Manual) PT INR APTT D-Dimer Heparin Anti-Xa Level ABG pH POC ABG pCO2 POC ABG pO2 ABG pO2 ABG HCO3 ABG O2 Saturation ABG Base Excess ABG Hemoglobin ABG Oxyhemoglobin ABG Sodium ABG Potassium ABG Glucose Oxyhemoglobin Carboxyhemoglobin Sodium Potassium Chloride Carbon Dioxide BUN Creatinine Glucose POC Glucose Lactic Acid 2.10 H* Calcium Phosphorus Magnesium Ferritin 877.5 H Lactate Dehydrogenase C-Reactive Protein NT-Pro-B Natriuret Pep Total Protein Albumin Triglycerides Arterial Blood Glucose Urine pH Ur Specific [place] 1.041 H Coronavirus (PCR) 03/09/21 03/09/21 03/09/21 07:46 08:00 13:01 WBC RBC Hgb Hct MCV MCHC RDW Plt Count Lymph % (Auto) [place] % (Auto) Lymph # (Auto) [place] # (Auto) Seg Neutrophils % Seg Neuts % (Manual) Lymphocytes % (Manual) Monocytes % (Manual) Nucleated RBC % Seg Neutrophils # Seg Neutrophils # Man Lymphocytes # (Manual) Monocytes # (Manual) PT INR APTT D-Dimer Heparin Anti-Xa Level ABG pH POC ABG pCO2 POC ABG pO2 ABG pO2 ABG HCO3 ABG O2 Saturation ABG Base Excess ABG Hemoglobin ABG Oxyhemoglobin ABG Sodium ABG Potassium ABG Glucose Oxyhemoglobin Carboxyhemoglobin Sodium Potassium Chloride Carbon Dioxide BUN Creatinine Glucose POC Glucose 191 H 182 H Lactic Acid Calcium Phosphorus Magnesium Ferritin Lactate Dehydrogenase C-Reactive Protein NT-Pro-B Natriuret Pep Total Protein Albumin Triglycerides Arterial Blood Glucose Urine pH Ur Specific [place] Coronavirus (PCR) Positive A 03/09/21 03/09/21 03/09/21 15:19 17:48 18:10 WBC RBC Hgb Hct MCV MCHC RDW Plt Count Lymph % (Auto) [place] % (Auto) Lymph # (Auto) [place] # (Auto) Seg Neutrophils % Seg Neuts % (Manual) Lymphocytes % (Manual) Monocytes % (Manual) Nucleated RBC % Seg Neutrophils # Seg Neutrophils # Man Lymphocytes # (Manual) Monocytes # (Manual) PT INR APTT D-Dimer Heparin Anti-Xa Level ABG pH POC ABG pCO2 POC ABG pO2 ABG pO2 47.3 L ABG HCO3 26.3 H ABG O2 Saturation 83.7 L ABG Base Excess ABG Hemoglobin ABG Oxyhemoglobin ABG Sodium ABG Potassium ABG Glucose Oxyhemoglobin 82.1 L Carboxyhemoglobin Sodium Potassium Chloride Carbon Dioxide BUN 29 H Creatinine Glucose 214 H POC Glucose 194 H Lactic Acid Calcium Phosphorus Magnesium Ferritin Lactate Dehydrogenase C-Reactive Protein NT-Pro-B Natriuret Pep Total Protein Albumin 3.4 L Triglycerides Arterial Blood Glucose Urine pH Ur Specific [place] Coronavirus (PCR) 03/09/21 03/10/21 03/10/21 20:40 04:29 04:29 WBC 20.6 H RBC 5.07 H Hgb Hct 46.2 H MCV MCHC RDW Plt Count Lymph % (Auto) [place] % (Auto) Lymph # (Auto) [place] # (Auto) Seg Neutrophils % Seg Neuts % (Manual) 94.0 H Lymphocytes % (Manual) 1.0 L Monocytes % (Manual) Nucleated RBC % 3.0 H Seg Neutrophils # Seg Neutrophils # Man 19.4 H Lymphocytes # (Manual) 0.2 L Monocytes # (Manual) 1.0 H PT INR APTT D-Dimer Heparin Anti-Xa Level ABG pH POC ABG pCO2 POC ABG pO2 ABG pO2 ABG HCO3 ABG O2 Saturation ABG Base Excess ABG Hemoglobin ABG Oxyhemoglobin ABG Sodium ABG Potassium ABG Glucose Oxyhemoglobin Carboxyhemoglobin Sodium Potassium Chloride Carbon Dioxide BUN 29 H Creatinine Glucose 188 H POC Glucose 176 H Lactic Acid Calcium Phosphorus Magnesium Ferritin Lactate Dehydrogenase C-Reactive Protein NT-Pro-B Natriuret Pep Total Protein Albumin 3.3 L Triglycerides Arterial Blood Glucose Urine pH Ur Specific [place] Coronavirus (PCR) 03/10/21 03/10/21 03/10/21 05:22 10:27 15:25 WBC RBC Hgb Hct MCV MCHC RDW Plt Count Lymph % (Auto) [place] % (Auto) Lymph # (Auto) [place] # (Auto) Seg Neutrophils % Seg Neuts % (Manual) Lymphocytes % (Manual) Monocytes % (Manual) Nucleated RBC % Seg Neutrophils # Seg Neutrophils # Man Lymphocytes # (Manual) Monocytes # (Manual) PT INR APTT D-Dimer Heparin Anti-Xa Level ABG pH 7.488 H 7.488 H POC ABG pCO2 POC ABG pO2 ABG pO2 47.7 L 50.5 L ABG HCO3 ABG O2 Saturation 86.2 L 87.9 L ABG Base Excess ABG Hemoglobin ABG Oxyhemoglobin ABG Sodium ABG Potassium ABG Glucose Oxyhemoglobin 84.6 L 86.2 L Carboxyhemoglobin Sodium Potassium Chloride Carbon Dioxide BUN Creatinine Glucose POC Glucose 155 H Lactic Acid Calcium Phosphorus Magnesium Ferritin Lactate Dehydrogenase C-Reactive Protein NT-Pro-B Natriuret Pep Total Protein Albumin Triglycerides Arterial Blood Glucose Urine pH Ur Specific [place] Coronavirus (PCR) 03/10/21 03/10/21 03/11/21 18:10 18:55 00:07 WBC RBC Hgb Hct MCV MCHC RDW Plt Count Lymph % (Auto) [place] % (Auto) Lymph # (Auto) [place] # (Auto) Seg Neutrophils % Seg Neuts % (Manual) Lymphocytes % (Manual) Monocytes % (Manual) Nucleated RBC % Seg Neutrophils # Seg Neutrophils # Man Lymphocytes # (Manual) Monocytes # (Manual) PT INR APTT D-Dimer Heparin Anti-Xa Level ABG pH 7.343 L POC ABG pCO2 POC ABG pO2 ABG pO2 60.4 L ABG HCO3 27.9 H ABG O2 Saturation 88.7 L ABG Base Excess ABG Hemoglobin ABG Oxyhemoglobin ABG Sodium ABG Potassium ABG Glucose Oxyhemoglobin 86.9 L Carboxyhemoglobin Sodium Potassium Chloride Carbon Dioxide BUN Creatinine Glucose POC Glucose 187 H 139 H Lactic Acid Calcium Phosphorus Magnesium Ferritin Lactate Dehydrogenase C-Reactive Protein NT-Pro-B Natriuret Pep Total Protein Albumin Triglycerides Arterial Blood Glucose Urine pH Ur Specific [place] Coronavirus (PCR) 03/11/21 03/11/21 03/11/21 02:09 04:28 08:06 WBC RBC Hgb Hct MCV MCHC RDW Plt Count Lymph % (Auto) [place] % (Auto) Lymph # (Auto) [place] # (Auto) Seg Neutrophils % Seg Neuts % (Manual) Lymphocytes % (Manual) Monocytes % (Manual) Nucleated RBC % Seg Neutrophils # Seg Neutrophils # Man Lymphocytes # (Manual) Monocytes # (Manual) PT INR APTT D-Dimer Heparin Anti-Xa Level ABG pH 7.277 L POC ABG pCO2 55.9 H POC ABG pO2 54.4 L ABG pO2 ABG HCO3 ABG O2 Saturation ABG Base Excess ABG Hemoglobin ABG Oxyhemoglobin 83.0 L ABG Sodium ABG Potassium 4.8 H ABG Glucose 180 H Oxyhemoglobin Carboxyhemoglobin Sodium Potassium Chloride Carbon Dioxide BUN 38 H Creatinine Glucose 249 H POC Glucose 278 H Lactic Acid Calcium Phosphorus Magnesium Ferritin Lactate Dehydrogenase C-Reactive Protein NT-Pro-B Natriuret Pep Total Protein Albumin 3.2 L Triglycerides Arterial Blood Glucose 180 H Urine pH Ur Specific [place] Coronavirus (PCR) 03/11/21 03/11/21 03/11/21 11:29 15:06 15:48 WBC RBC Hgb Hct MCV MCHC RDW Plt Count Lymph % (Auto) [place] % (Auto) Lymph # (Auto) [place] # (Auto) Seg Neutrophils % Seg Neuts % (Manual) Lymphocytes % (Manual) Monocytes % (Manual) Nucleated RBC % Seg Neutrophils # Seg Neutrophils # Man Lymphocytes # (Manual) Monocytes # (Manual) PT INR APTT D-Dimer Heparin Anti-Xa Level ABG pH 7.260 L POC ABG pCO2 POC ABG pO2 ABG pO2 53.5 L ABG HCO3 29.5 H ABG O2 Saturation 84.0 L ABG Base Excess ABG Hemoglobin ABG Oxyhemoglobin ABG Sodium ABG Potassium ABG Glucose Oxyhemoglobin 82.3 L Carboxyhemoglobin Sodium Potassium Chloride Carbon Dioxide BUN Creatinine Glucose POC Glucose 288 H 295 H Lactic Acid Calcium Phosphorus Magnesium Ferritin Lactate Dehydrogenase C-Reactive Protein NT-Pro-B Natriuret Pep Total Protein Albumin Triglycerides Arterial Blood Glucose Urine pH Ur Specific [place] Coronavirus (PCR) 03/12/21 03/12/21 03/12/21 00:01 05:24 08:03 WBC RBC Hgb Hct MCV MCHC RDW Plt Count Lymph % (Auto) [place] % (Auto) Lymph # (Auto) [place] # (Auto) Seg Neutrophils % Seg Neuts % (Manual) Lymphocytes % (Manual) Monocytes % (Manual) Nucleated RBC % Seg Neutrophils # Seg Neutrophils # Man Lymphocytes # (Manual) Monocytes # (Manual) PT INR APTT D-Dimer Heparin Anti-Xa Level ABG pH POC ABG pCO2 POC ABG pO2 ABG pO2 ABG HCO3 ABG O2 Saturation ABG Base Excess ABG Hemoglobin ABG Oxyhemoglobin ABG Sodium ABG Potassium ABG Glucose Oxyhemoglobin Carboxyhemoglobin Sodium 135 L Potassium Chloride Carbon Dioxide BUN 48 H Creatinine Glucose 358 H POC Glucose 304 H 310 H Lactic Acid Calcium Phosphorus Magnesium Ferritin Lactate Dehydrogenase C-Reactive Protein NT-Pro-B Natriuret Pep Total Protein 6.0 L Albumin 2.9 L Triglycerides Arterial Blood Glucose Urine pH Ur Specific [place] Coronavirus (PCR) 03/12/21 03/12/21 03/12/21 08:03 10:43 11:31 WBC 14.6 H RBC Hgb Hct MCV MCHC RDW Plt Count Lymph % (Auto) [place] % (Auto) Lymph # (Auto) [place] # (Auto) Seg Neutrophils % Seg Neuts % (Manual) Lymphocytes % (Manual) Monocytes % (Manual) Nucleated RBC % Seg Neutrophils # Seg Neutrophils # Man Lymphocytes # (Manual) Monocytes # (Manual) PT INR APTT D-Dimer Heparin Anti-Xa Level ABG pH 7.248 L POC ABG pCO2 POC ABG pO2 ABG pO2 73.7 L ABG HCO3 32.0 H ABG O2 Saturation 93.9 L ABG Base Excess ABG Hemoglobin ABG Oxyhemoglobin ABG Sodium ABG Potassium ABG Glucose Oxyhemoglobin 92.1 L Carboxyhemoglobin Sodium Potassium Chloride Carbon Dioxide BUN Creatinine Glucose POC Glucose 359 H Lactic Acid Calcium Phosphorus Magnesium Ferritin Lactate Dehydrogenase C-Reactive Protein NT-Pro-B Natriuret Pep Total Protein Albumin Triglycerides Arterial Blood Glucose Urine pH Ur Specific [place] Coronavirus (PCR) 03/12/21 03/12/21 03/13/21 17:20 21:54 00:02 WBC RBC Hgb Hct MCV MCHC RDW Plt Count Lymph % (Auto) [place] % (Auto) Lymph # (Auto) [place] # (Auto) Seg Neutrophils % Seg Neuts % (Manual) Lymphocytes % (Manual) Monocytes % (Manual) Nucleated RBC % Seg Neutrophils # Seg Neutrophils # Man Lymphocytes # (Manual) Monocytes # (Manual) PT INR APTT D-Dimer Heparin Anti-Xa Level ABG pH 7.238 L POC ABG pCO2 71.9 H POC ABG pO2 53.6 L ABG pO2 ABG HCO3 ABG O2 Saturation ABG Base Excess ABG Hemoglobin ABG Oxyhemoglobin 84.8 L ABG Sodium 134.2 L ABG Potassium 4.9 H ABG Glucose 306 H Oxyhemoglobin Carboxyhemoglobin Sodium Potassium Chloride Carbon Dioxide BUN Creatinine Glucose POC Glucose 374 H 308 H Lactic Acid Calcium Phosphorus Magnesium Ferritin Lactate Dehydrogenase C-Reactive Protein NT-Pro-B Natriuret Pep Total Protein Albumin Triglycerides Arterial Blood Glucose 306 H Urine pH Ur Specific [place] Coronavirus (PCR) 03/13/21 03/13/21 03/13/21 05:22 05:44 05:44 WBC 13.9 H RBC Hgb Hct MCV MCHC RDW Plt Count Lymph % (Auto) [place] % (Auto) Lymph # (Auto) [place] # (Auto) Seg Neutrophils % Seg Neuts % (Manual) Lymphocytes % (Manual) Monocytes % (Manual) Nucleated RBC % Seg Neutrophils # Seg Neutrophils # Man Lymphocytes # (Manual) Monocytes # (Manual) PT INR APTT D-Dimer 3567.97 H Heparin Anti-Xa Level ABG pH POC ABG pCO2 POC ABG pO2 ABG pO2 ABG HCO3 ABG O2 Saturation ABG Base Excess ABG Hemoglobin ABG Oxyhemoglobin ABG Sodium ABG Potassium ABG Glucose Oxyhemoglobin Carboxyhemoglobin Sodium Potassium Chloride Carbon Dioxide BUN Creatinine Glucose POC Glucose 316 H Lactic Acid Calcium Phosphorus Magnesium Ferritin Lactate Dehydrogenase C-Reactive Protein NT-Pro-B Natriuret Pep Total Protein Albumin Triglycerides Arterial Blood Glucose Urine pH Ur Specific [place] Coronavirus (PCR) 03/13/21 03/13/21 03/13/21 05:44 05:44 11:15 WBC RBC Hgb Hct MCV MCHC RDW Plt Count Lymph % (Auto) [place] % (Auto) Lymph # (Auto) [place] # (Auto) Seg Neutrophils % Seg Neuts % (Manual) Lymphocytes % (Manual) Monocytes % (Manual) Nucleated RBC % Seg Neutrophils # Seg Neutrophils # Man Lymphocytes # (Manual) Monocytes # (Manual) PT INR APTT D-Dimer Heparin Anti-Xa Level ABG pH 7.310 L POC ABG pCO2 POC ABG pO2 ABG pO2 52.3 L ABG HCO3 34.1 H ABG O2 Saturation 86.8 L ABG Base Excess 5.5 H ABG Hemoglobin 13.8 L ABG Oxyhemoglobin ABG Sodium ABG Potassium ABG Glucose Oxyhemoglobin 85.1 L Carboxyhemoglobin Sodium Potassium Chloride Carbon Dioxide BUN Creatinine Glucose POC Glucose Lactic Acid Calcium Phosphorus Magnesium Ferritin 858.7 H Lactate Dehydrogenase 348 H C-Reactive Protein 2.80 H NT-Pro-B Natriuret Pep Total Protein Albumin Triglycerides Arterial Blood Glucose Urine pH Ur Specific [place] Coronavirus (PCR) 03/13/21 03/13/21 03/13/21 11:21 15:47 19:23 WBC RBC Hgb Hct MCV MCHC RDW Plt Count Lymph % (Auto) [place] % (Auto) Lymph # (Auto) [place] # (Auto) Seg Neutrophils % Seg Neuts % (Manual) Lymphocytes % (Manual) Monocytes % (Manual) Nucleated RBC % Seg Neutrophils # Seg Neutrophils # Man Lymphocytes # (Manual) Monocytes # (Manual) PT INR APTT D-Dimer Heparin Anti-Xa Level ABG pH POC ABG pCO2 POC ABG pO2 ABG pO2 ABG HCO3 ABG O2 Saturation ABG Base Excess ABG Hemoglobin ABG Oxyhemoglobin ABG Sodium ABG Potassium ABG Glucose Oxyhemoglobin Carboxyhemoglobin Sodium 136 L Potassium 5.9 H Chloride Carbon Dioxide BUN 50 H Creatinine Glucose 397 H POC Glucose 322 H 317 H Lactic Acid Calcium Phosphorus Magnesium Ferritin Lactate Dehydrogenase C-Reactive Protein NT-Pro-B Natriuret Pep Total Protein Albumin Triglycerides Arterial Blood Glucose Urine pH Ur Specific [place] Coronavirus (PCR) 03/13/21 03/14/21 03/14/21 23:46 05:32 05:50 WBC 11.6 H RBC Hgb Hct MCV MCHC RDW Plt Count Lymph % (Auto) [place] % (Auto) Lymph # (Auto) [place] # (Auto) Seg Neutrophils % Seg Neuts % (Manual) Lymphocytes % (Manual) Monocytes % (Manual) Nucleated RBC % Seg Neutrophils # Seg Neutrophils # Man Lymphocytes # (Manual) Monocytes # (Manual) PT INR APTT D-Dimer Heparin Anti-Xa Level ABG pH POC ABG pCO2 POC ABG pO2 ABG pO2 ABG HCO3 ABG O2 Saturation ABG Base Excess ABG Hemoglobin ABG Oxyhemoglobin ABG Sodium ABG Potassium ABG Glucose Oxyhemoglobin Carboxyhemoglobin Sodium Potassium Chloride Carbon Dioxide BUN Creatinine Glucose POC Glucose 332 H 316 H Lactic Acid Calcium Phosphorus Magnesium Ferritin Lactate Dehydrogenase C-Reactive Protein NT-Pro-B Natriuret Pep Total Protein Albumin Triglycerides Arterial Blood Glucose Urine pH Ur Specific [place] Coronavirus (PCR) 03/14/21 03/14/21 03/14/21 05:50 11:33 16:53 WBC RBC Hgb Hct MCV MCHC RDW Plt Count Lymph % (Auto) [place] % (Auto) Lymph # (Auto) [place] # (Auto) Seg Neutrophils % Seg Neuts % (Manual) Lymphocytes % (Manual) Monocytes % (Manual) Nucleated RBC % Seg Neutrophils # Seg Neutrophils # Man Lymphocytes # (Manual) Monocytes # (Manual) PT INR APTT D-Dimer Heparin Anti-Xa Level ABG pH POC ABG pCO2 POC ABG pO2 ABG pO2 ABG HCO3 ABG O2 Saturation ABG Base Excess ABG Hemoglobin ABG Oxyhemoglobin ABG Sodium ABG Potassium ABG Glucose Oxyhemoglobin Carboxyhemoglobin Sodium Potassium 5.9 H Chloride Carbon Dioxide 31 H BUN 48 H Creatinine Glucose 380 H POC Glucose 315 H 235 H Lactic Acid Calcium Phosphorus Magnesium 3.40 H Ferritin Lactate Dehydrogenase C-Reactive Protein NT-Pro-B Natriuret Pep Total Protein Albumin Triglycerides Arterial Blood Glucose Urine pH Ur Specific [place] Coronavirus (PCR) 03/14/21 03/14/21 03/15/21 18:34 23:27 01:22 WBC RBC Hgb Hct 46.3 H MCV MCHC RDW Plt Count Lymph % (Auto) [place] % (Auto) Lymph # (Auto) [place] # (Auto) Seg Neutrophils % Seg Neuts % (Manual) Lymphocytes % (Manual) Monocytes % (Manual) Nucleated RBC % Seg Neutrophils # Seg Neutrophils # Man Lymphocytes # (Manual) Monocytes # (Manual) PT INR APTT D-Dimer Heparin Anti-Xa Level ABG pH POC ABG pCO2 POC ABG pO2 ABG pO2 ABG HCO3 ABG O2 Saturation ABG Base Excess ABG Hemoglobin ABG Oxyhemoglobin ABG Sodium ABG Potassium ABG Glucose Oxyhemoglobin Carboxyhemoglobin Sodium 146 H Potassium Chloride Carbon Dioxide 34 H BUN 49 H Creatinine Glucose 285 H POC Glucose 203 H Lactic Acid Calcium Phosphorus Magnesium Ferritin Lactate Dehydrogenase C-Reactive Protein NT-Pro-B Natriuret Pep Total Protein Albumin Triglycerides Arterial Blood Glucose Urine pH Ur Specific [place] Coronavirus (PCR) 03/15/21 03/15/21 03/15/21 04:00 06:06 06:06 WBC RBC Hgb Hct MCV MCHC RDW Plt Count Lymph % (Auto) [place] % (Auto) Lymph # (Auto) [place] # (Auto) Seg Neutrophils % Seg Neuts % (Manual) Lymphocytes % (Manual) Monocytes % (Manual) Nucleated RBC % Seg Neutrophils # Seg Neutrophils # Man Lymphocytes # (Manual) Monocytes # (Manual) PT INR APTT D-Dimer 1781.79 H Heparin Anti-Xa Level ABG pH POC ABG pCO2 POC ABG pO2 ABG pO2 ABG HCO3 ABG O2 Saturation ABG Base Excess ABG Hemoglobin ABG Oxyhemoglobin ABG Sodium ABG Potassium ABG Glucose Oxyhemoglobin Carboxyhemoglobin Sodium 148 H Potassium 5.7 H D Chloride 108.0 H Carbon Dioxide 31 H BUN 46 H Creatinine Glucose 139 H POC Glucose Lactic Acid Calcium Phosphorus 4.80 H D Magnesium 3.00 H Ferritin 976.4 H Lactate Dehydrogenase 630 H C-Reactive Protein NT-Pro-B Natriuret Pep Total Protein Albumin Triglycerides Arterial Blood Glucose Urine pH Ur Specific [place] Coronavirus (PCR) 03/15/21 03/15/21 03/15/21 11:56 14:05 17:09 WBC RBC Hgb Hct MCV MCHC RDW Plt Count Lymph % (Auto) [place] % (Auto) Lymph # (Auto) [place] # (Auto) Seg Neutrophils % Seg Neuts % (Manual) Lymphocytes % (Manual) Monocytes % (Manual) Nucleated RBC % Seg Neutrophils # Seg Neutrophils # Man Lymphocytes # (Manual) Monocytes # (Manual) PT INR APTT D-Dimer Heparin Anti-Xa Level ABG pH POC ABG pCO2 POC ABG pO2 ABG pO2 52.1 L ABG HCO3 36.6 H ABG O2 Saturation 87.6 L ABG Base Excess 9.5 H ABG Hemoglobin ABG Oxyhemoglobin ABG Sodium ABG Potassium ABG Glucose Oxyhemoglobin 85.7 L Carboxyhemoglobin Sodium Potassium Chloride Carbon Dioxide BUN Creatinine Glucose POC Glucose 219 H 263 H Lactic Acid Calcium Phosphorus Magnesium Ferritin Lactate Dehydrogenase C-Reactive Protein NT-Pro-B Natriuret Pep Total Protein Albumin Triglycerides Arterial Blood Glucose Urine pH Ur Specific [place] Coronavirus (PCR) 03/16/21 03/16/21 03/16/21 00:32 04:11 04:11 WBC 11.9 H RBC Hgb Hct MCV MCHC 30 L RDW Plt Count Lymph % (Auto) [place] % (Auto) Lymph # (Auto) [place] # (Auto) Seg Neutrophils % Seg Neuts % (Manual) Lymphocytes % (Manual) Monocytes % (Manual) Nucleated RBC % Seg Neutrophils # Seg Neutrophils # Man Lymphocytes # (Manual) Monocytes # (Manual) PT INR APTT D-Dimer Heparin Anti-Xa Level ABG pH POC ABG pCO2 POC ABG pO2 ABG pO2 ABG HCO3 ABG O2 Saturation ABG Base Excess ABG Hemoglobin ABG Oxyhemoglobin ABG Sodium ABG Potassium ABG Glucose Oxyhemoglobin Carboxyhemoglobin Sodium 151 H Potassium Chloride Carbon Dioxide 35 H BUN 48 H Creatinine Glucose 152 H POC Glucose 165 H Lactic Acid Calcium Phosphorus Magnesium Ferritin Lactate Dehydrogenase C-Reactive Protein NT-Pro-B Natriuret Pep Total Protein Albumin Triglycerides Arterial Blood Glucose Urine pH Ur Specific [place] Coronavirus (PCR) 03/16/21 03/16/21 03/16/21 04:11 05:26 11:35 WBC RBC Hgb Hct MCV MCHC RDW Plt Count Lymph % (Auto) [place] % (Auto) Lymph # (Auto) [place] # (Auto) Seg Neutrophils % Seg Neuts % (Manual) Lymphocytes % (Manual) Monocytes % (Manual) Nucleated RBC % Seg Neutrophils # Seg Neutrophils # Man Lymphocytes # (Manual) Monocytes # (Manual) PT INR APTT D-Dimer Heparin Anti-Xa Level ABG pH POC ABG pCO2 POC ABG pO2 ABG pO2 ABG HCO3 ABG O2 Saturation ABG Base Excess ABG Hemoglobin ABG Oxyhemoglobin ABG Sodium ABG Potassium ABG Glucose Oxyhemoglobin Carboxyhemoglobin Sodium Potassium Chloride Carbon Dioxide BUN Creatinine Glucose POC Glucose 162 H 187 H Lactic Acid Calcium Phosphorus Magnesium Ferritin Lactate Dehydrogenase C-Reactive Protein NT-Pro-B Natriuret Pep Total Protein Albumin Triglycerides 267 H Arterial Blood Glucose Urine pH Ur Specific [place] Coronavirus (PCR) 03/16/21 03/16/21 03/16/21 17:29 22:25 23:22 WBC RBC Hgb Hct MCV MCHC RDW Plt Count Lymph % (Auto) [place] % (Auto) Lymph # (Auto) [place] # (Auto) Seg Neutrophils % Seg Neuts % (Manual) Lymphocytes % (Manual) Monocytes % (Manual) Nucleated RBC % Seg Neutrophils # Seg Neutrophils # Man Lymphocytes # (Manual) Monocytes # (Manual) PT INR APTT D-Dimer Heparin Anti-Xa Level ABG pH POC ABG pCO2 POC ABG pO2 ABG pO2 ABG HCO3 ABG O2 Saturation ABG Base Excess ABG Hemoglobin ABG Oxyhemoglobin ABG Sodium ABG Potassium ABG Glucose Oxyhemoglobin Carboxyhemoglobin Sodium Potassium Chloride Carbon Dioxide BUN Creatinine Glucose POC Glucose 237 H 165 H 189 H Lactic Acid Calcium Phosphorus Magnesium Ferritin Lactate Dehydrogenase C-Reactive Protein NT-Pro-B Natriuret Pep Total Protein Albumin Triglycerides Arterial Blood Glucose Urine pH Ur Specific [place] Coronavirus (PCR) 03/17/21 03/17/21 03/17/21 04:40 04:40 04:40 WBC 14.1 H RBC Hgb Hct MCV MCHC RDW 15.3 H Plt Count Lymph % (Auto) 12.6 L [place] % (Auto) 11.3 H Lymph # (Auto) [place] # (Auto) 1.6 H Seg Neutrophils % 74.9 H Seg Neuts % (Manual) Lymphocytes % (Manual) Monocytes % (Manual) Nucleated RBC % Seg Neutrophils # 10.5 H Seg Neutrophils # Man Lymphocytes # (Manual) Monocytes # (Manual) PT INR APTT D-Dimer 1359.12 H Heparin Anti-Xa Level ABG pH POC ABG pCO2 POC ABG pO2 ABG pO2 ABG HCO3 ABG O2 Saturation ABG Base Excess ABG Hemoglobin ABG Oxyhemoglobin ABG Sodium ABG Potassium ABG Glucose Oxyhemoglobin Carboxyhemoglobin Sodium 148 H Potassium Chloride 107.5 H Carbon Dioxide 33 H BUN 42 H Creatinine Glucose 183 H POC Glucose Lactic Acid Calcium Phosphorus Magnesium 2.70 H Ferritin Lactate Dehydrogenase C-Reactive Protein NT-Pro-B Natriuret Pep Total Protein Albumin Triglycerides Arterial Blood Glucose Urine pH Ur Specific [place] Coronavirus (PCR) 03/17/21 03/17/21 03/17/21 05:53 11:05 11:51 WBC RBC Hgb Hct MCV MCHC RDW Plt Count Lymph % (Auto) [place] % (Auto) Lymph # (Auto) [place] # (Auto) Seg Neutrophils % Seg Neuts % (Manual) Lymphocytes % (Manual) Monocytes % (Manual) Nucleated RBC % Seg Neutrophils # Seg Neutrophils # Man Lymphocytes # (Manual) Monocytes # (Manual) PT INR APTT D-Dimer Heparin Anti-Xa Level ABG pH POC ABG pCO2 POC ABG pO2 ABG pO2 ABG HCO3 35.7 H ABG O2 Saturation ABG Base Excess 8.7 H ABG Hemoglobin ABG Oxyhemoglobin ABG Sodium ABG Potassium ABG Glucose Oxyhemoglobin 94.2 L Carboxyhemoglobin Sodium Potassium Chloride Carbon Dioxide BUN Creatinine Glucose POC Glucose 176 H 197 H Lactic Acid Calcium Phosphorus Magnesium Ferritin Lactate Dehydrogenase C-Reactive Protein NT-Pro-B Natriuret Pep Total Protein Albumin Triglycerides Arterial Blood Glucose Urine pH Ur Specific [place] Coronavirus (PCR) 03/17/21 03/17/21 03/17/21 16:54 21:10 23:33 WBC RBC Hgb Hct MCV MCHC RDW Plt Count Lymph % (Auto) [place] % (Auto) Lymph # (Auto) [place] # (Auto) Seg Neutrophils % Seg Neuts % (Manual) Lymphocytes % (Manual) Monocytes % (Manual) Nucleated RBC % Seg Neutrophils # Seg Neutrophils # Man Lymphocytes # (Manual) Monocytes # (Manual) PT INR APTT D-Dimer Heparin Anti-Xa Level ABG pH POC ABG pCO2 POC ABG pO2 ABG pO2 ABG HCO3 ABG O2 Saturation ABG Base Excess ABG Hemoglobin ABG Oxyhemoglobin ABG Sodium ABG Potassium ABG Glucose Oxyhemoglobin Carboxyhemoglobin Sodium Potassium Chloride Carbon Dioxide BUN Creatinine Glucose POC Glucose 135 H 160 H 138 H Lactic Acid Calcium Phosphorus Magnesium Ferritin Lactate Dehydrogenase C-Reactive Protein NT-Pro-B Natriuret Pep Total Protein Albumin Triglycerides Arterial Blood Glucose Urine pH Ur Specific [place] Coronavirus (PCR) 03/18/21 03/18/21 03/18/21 04:18 04:50 05:43 WBC RBC Hgb Hct MCV MCHC RDW Plt Count Lymph % (Auto) [place] % (Auto) Lymph # (Auto) [place] # (Auto) Seg Neutrophils % Seg Neuts % (Manual) Lymphocytes % (Manual) Monocytes % (Manual) Nucleated RBC % Seg Neutrophils # Seg Neutrophils # Man Lymphocytes # (Manual) Monocytes # (Manual) PT INR APTT D-Dimer Heparin Anti-Xa Level ABG pH POC ABG pCO2 POC ABG pO2 ABG pO2 59.8 L ABG HCO3 36.5 H ABG O2 Saturation 90.7 L ABG Base Excess 9.4 H ABG Hemoglobin 12.0 L ABG Oxyhemoglobin ABG Sodium ABG Potassium ABG Glucose Oxyhemoglobin 88.9 L Carboxyhemoglobin Sodium Potassium Chloride 107.2 H Carbon Dioxide 34 H BUN 38 H Creatinine 0.7 L Glucose 136 H POC Glucose 128 H Lactic Acid Calcium Phosphorus Magnesium Ferritin Lactate Dehydrogenase C-Reactive Protein NT-Pro-B Natriuret Pep Total Protein Albumin Triglycerides Arterial Blood Glucose Urine pH Ur Specific [place] Coronavirus (PCR) 03/18/21 03/18/21 03/18/21 11:20 17:35 23:35 WBC RBC Hgb Hct MCV MCHC RDW Plt Count Lymph % (Auto) [place] % (Auto) Lymph # (Auto) [place] # (Auto) Seg Neutrophils % Seg Neuts % (Manual) Lymphocytes % (Manual) Monocytes % (Manual) Nucleated RBC % Seg Neutrophils # Seg Neutrophils # Man Lymphocytes # (Manual) Monocytes # (Manual) PT INR APTT D-Dimer Heparin Anti-Xa Level ABG pH POC ABG pCO2 POC ABG pO2 ABG pO2 70.7 L ABG HCO3 33.6 H ABG O2 Saturation ABG Base Excess 8.0 H ABG Hemoglobin ABG Oxyhemoglobin ABG Sodium ABG Potassium ABG Glucose Oxyhemoglobin 93.7 L Carboxyhemoglobin Sodium Potassium Chloride Carbon Dioxide BUN Creatinine Glucose POC Glucose 189 H 144 H Lactic Acid Calcium Phosphorus Magnesium Ferritin Lactate Dehydrogenase C-Reactive Protein NT-Pro-B Natriuret Pep Total Protein Albumin Triglycerides Arterial Blood Glucose Urine pH Ur Specific [place] Coronavirus (PCR) 03/19/21 03/19/21 03/19/21 02:35 04:20 04:20 WBC 14.0 H RBC Hgb Hct MCV MCHC RDW Plt Count Lymph % (Auto) [place] % (Auto) Lymph # (Auto) [place] # (Auto) Seg Neutrophils % Seg Neuts % (Manual) Lymphocytes % (Manual) Monocytes % (Manual) Nucleated RBC % Seg Neutrophils # Seg Neutrophils # Man Lymphocytes # (Manual) Monocytes # (Manual) PT INR APTT D-Dimer Heparin Anti-Xa Level ABG pH POC ABG pCO2 POC ABG pO2 ABG pO2 ABG HCO3 32.0 H ABG O2 Saturation ABG Base Excess 5.2 H ABG Hemoglobin 13.6 L ABG Oxyhemoglobin ABG Sodium ABG Potassium ABG Glucose Oxyhemoglobin 94.6 L Carboxyhemoglobin Sodium 146 H Potassium Chloride 109.3 H Carbon Dioxide BUN 36 H Creatinine Glucose 203 H POC Glucose Lactic Acid Calcium Phosphorus Magnesium Ferritin Lactate Dehydrogenase C-Reactive Protein NT-Pro-B Natriuret Pep Total Protein Albumin Triglycerides 254 H Arterial Blood Glucose Urine pH Ur Specific [place] Coronavirus (PCR) 03/19/21 03/19/21 03/19/21 05:45 11:36 23:51 WBC RBC Hgb Hct MCV MCHC RDW Plt Count Lymph % (Auto) [place] % (Auto) Lymph # (Auto) [place] # (Auto) Seg Neutrophils % Seg Neuts % (Manual) Lymphocytes % (Manual) Monocytes % (Manual) Nucleated RBC % Seg Neutrophils # Seg Neutrophils # Man Lymphocytes # (Manual) Monocytes # (Manual) PT INR APTT D-Dimer Heparin Anti-Xa Level ABG pH POC ABG pCO2 POC ABG pO2 ABG pO2 ABG HCO3 ABG O2 Saturation ABG Base Excess ABG Hemoglobin ABG Oxyhemoglobin ABG Sodium ABG Potassium ABG Glucose Oxyhemoglobin Carboxyhemoglobin Sodium Potassium Chloride Carbon Dioxide BUN Creatinine Glucose POC Glucose 164 H 172 H 140 H Lactic Acid Calcium Phosphorus Magnesium Ferritin Lactate Dehydrogenase C-Reactive Protein NT-Pro-B Natriuret Pep Total Protein Albumin Triglycerides Arterial Blood Glucose Urine pH Ur Specific [place] Coronavirus (PCR) 03/20/21 03/20/21 03/20/21 03:29 04:45 04:45 WBC RBC Hgb Hct MCV 95 H MCHC RDW 15.7 H Plt Count Lymph % (Auto) [place] % (Auto) Lymph # (Auto) [place] # (Auto) Seg Neutrophils % Seg Neuts % (Manual) Lymphocytes % (Manual) Monocytes % (Manual) Nucleated RBC % Seg Neutrophils # Seg Neutrophils # Man Lymphocytes # (Manual) Monocytes # (Manual) PT INR APTT D-Dimer Heparin Anti-Xa Level ABG pH 7.349 L POC ABG pCO2 POC ABG pO2 ABG pO2 ABG HCO3 33.7 H ABG O2 Saturation ABG Base Excess 6.4 H ABG Hemoglobin 11.8 L ABG Oxyhemoglobin ABG Sodium ABG Potassium ABG Glucose Oxyhemoglobin 93.9 L Carboxyhemoglobin Sodium 146 H Potassium 5.5 H Chloride 111.1 H Carbon Dioxide BUN 34 H Creatinine 0.7 L Glucose 145 H POC Glucose Lactic Acid Calcium Phosphorus Magnesium 2.50 H Ferritin Lactate Dehydrogenase C-Reactive Protein NT-Pro-B Natriuret Pep Total Protein Albumin Triglycerides Arterial Blood Glucose Urine pH Ur Specific [place] Coronavirus (PCR) 03/20/21 03/20/21 03/20/21 05:41 09:08 11:54 WBC RBC Hgb Hct MCV MCHC RDW Plt Count Lymph % (Auto) [place] % (Auto) Lymph # (Auto) [place] # (Auto) Seg Neutrophils % Seg Neuts % (Manual) Lymphocytes % (Manual) Monocytes % (Manual) Nucleated RBC % Seg Neutrophils # Seg Neutrophils # Man Lymphocytes # (Manual) Monocytes # (Manual) PT INR APTT D-Dimer Heparin Anti-Xa Level ABG pH POC ABG pCO2 POC ABG pO2 ABG pO2 ABG HCO3 ABG O2 Saturation ABG Base Excess ABG Hemoglobin ABG Oxyhemoglobin ABG Sodium ABG Potassium ABG Glucose Oxyhemoglobin Carboxyhemoglobin Sodium Potassium Chloride Carbon Dioxide BUN Creatinine Glucose POC Glucose 108 H 132 H 162 H Lactic Acid Calcium Phosphorus Magnesium Ferritin Lactate Dehydrogenase C-Reactive Protein NT-Pro-B Natriuret Pep Total Protein Albumin Triglycerides Arterial Blood Glucose Urine pH Ur Specific [place] Coronavirus (PCR) 03/20/21 03/21/21 03/21/21 17:28 00:31 04:44 WBC RBC Hgb Hct MCV MCHC RDW Plt Count Lymph % (Auto) [place] % (Auto) Lymph # (Auto) [place] # (Auto) Seg Neutrophils % Seg Neuts % (Manual) Lymphocytes % (Manual) Monocytes % (Manual) Nucleated RBC % Seg Neutrophils # Seg Neutrophils # Man Lymphocytes # (Manual) Monocytes # (Manual) PT INR APTT D-Dimer Heparin Anti-Xa Level ABG pH POC ABG pCO2 POC ABG pO2 ABG pO2 ABG HCO3 ABG O2 Saturation ABG Base Excess ABG Hemoglobin ABG Oxyhemoglobin ABG Sodium ABG Potassium ABG Glucose Oxyhemoglobin Carboxyhemoglobin Sodium Potassium Chloride 108.3 H Carbon Dioxide BUN 30 H Creatinine 0.7 L Glucose POC Glucose 160 H 122 H Lactic Acid Calcium Phosphorus Magnesium Ferritin Lactate Dehydrogenase C-Reactive Protein NT-Pro-B Natriuret Pep Total Protein Albumin Triglycerides Arterial Blood Glucose Urine pH Ur Specific [place] Coronavirus (PCR) 03/21/21 03/21/21 03/21/21 09:18 10:09 13:20 WBC RBC Hgb Hct MCV MCHC RDW Plt Count Lymph % (Auto) [place] % (Auto) Lymph # (Auto) [place] # (Auto) Seg Neutrophils % Seg Neuts % (Manual) Lymphocytes % (Manual) Monocytes % (Manual) Nucleated RBC % Seg Neutrophils # Seg Neutrophils # Man Lymphocytes # (Manual) Monocytes # (Manual) PT INR APTT D-Dimer Heparin Anti-Xa Level ABG pH POC ABG pCO2 POC ABG pO2 ABG pO2 60.7 L ABG HCO3 30.6 H ABG O2 Saturation 93.6 L ABG Base Excess 5.3 H ABG Hemoglobin ABG Oxyhemoglobin ABG Sodium ABG Potassium ABG Glucose Oxyhemoglobin 91.7 L Carboxyhemoglobin Sodium Potassium Chloride Carbon Dioxide BUN Creatinine Glucose POC Glucose 169 H 122 H Lactic Acid Calcium Phosphorus Magnesium Ferritin Lactate Dehydrogenase C-Reactive Protein NT-Pro-B Natriuret Pep Total Protein Albumin Triglycerides Arterial Blood Glucose Urine pH Ur Specific [place] Coronavirus (PCR) 03/21/21 03/21/21 03/21/21 17:25 22:41 23:52 WBC RBC Hgb Hct MCV MCHC RDW Plt Count Lymph % (Auto) [place] % (Auto) Lymph # (Auto) [place] # (Auto) Seg Neutrophils % Seg Neuts % (Manual) Lymphocytes % (Manual) Monocytes % (Manual) Nucleated RBC % Seg Neutrophils # Seg Neutrophils # Man Lymphocytes # (Manual) Monocytes # (Manual) PT INR APTT D-Dimer Heparin Anti-Xa Level ABG pH POC ABG pCO2 POC ABG pO2 ABG pO2 ABG HCO3 ABG O2 Saturation ABG Base Excess ABG Hemoglobin ABG Oxyhemoglobin ABG Sodium ABG Potassium ABG Glucose Oxyhemoglobin Carboxyhemoglobin Sodium Potassium Chloride Carbon Dioxide BUN Creatinine Glucose POC Glucose 121 H 139 H 140 H Lactic Acid Calcium Phosphorus Magnesium Ferritin Lactate Dehydrogenase C-Reactive Protein NT-Pro-B Natriuret Pep Total Protein Albumin Triglycerides Arterial Blood Glucose Urine pH Ur Specific [place] Coronavirus (PCR) 03/22/21 03/22/21 03/22/21 05:58 07:26 07:26 WBC RBC Hgb Hct MCV MCHC 31 L RDW 16.1 H Plt Count Lymph % (Auto) [place] % (Auto) Lymph # (Auto) [place] # (Auto) Seg Neutrophils % Seg Neuts % (Manual) Lymphocytes % (Manual) Monocytes % (Manual) Nucleated RBC % Seg Neutrophils # Seg Neutrophils # Man Lymphocytes # (Manual) Monocytes # (Manual) PT INR APTT D-Dimer Heparin Anti-Xa Level ABG pH POC ABG pCO2 POC ABG pO2 ABG pO2 ABG HCO3 ABG O2 Saturation ABG Base Excess ABG Hemoglobin ABG Oxyhemoglobin ABG Sodium ABG Potassium ABG Glucose Oxyhemoglobin Carboxyhemoglobin Sodium Potassium Chloride 108.5 H Carbon Dioxide BUN 44 H Creatinine Glucose 120 H POC Glucose 131 H Lactic Acid Calcium Phosphorus 5.80 H Magnesium 2.80 H Ferritin Lactate Dehydrogenase C-Reactive Protein NT-Pro-B Natriuret Pep Total Protein Albumin Triglycerides 305 H Arterial Blood Glucose Urine pH Ur Specific [place] Coronavirus (PCR) 03/22/21 03/22/21 03/22/21 09:38 11:15 16:01 WBC RBC Hgb Hct MCV MCHC RDW Plt Count Lymph % (Auto) [place] % (Auto) Lymph # (Auto) [place] # (Auto) Seg Neutrophils % Seg Neuts % (Manual) Lymphocytes % (Manual) Monocytes % (Manual) Nucleated RBC % Seg Neutrophils # Seg Neutrophils # Man Lymphocytes # (Manual) Monocytes # (Manual) PT INR APTT D-Dimer Heparin Anti-Xa Level ABG pH POC ABG pCO2 POC ABG pO2 ABG pO2 70.0 L ABG HCO3 30.0 H ABG O2 Saturation 94.6 L ABG Base Excess 3.6 H ABG Hemoglobin 13.5 L ABG Oxyhemoglobin ABG Sodium ABG Potassium ABG Glucose Oxyhemoglobin 92.5 L Carboxyhemoglobin Sodium Potassium Chloride Carbon Dioxide BUN Creatinine Glucose POC Glucose 186 H 148 H Lactic Acid Calcium Phosphorus Magnesium Ferritin Lactate Dehydrogenase C-Reactive Protein NT-Pro-B Natriuret Pep Total Protein Albumin Triglycerides Arterial Blood Glucose Urine pH Ur Specific [place] Coronavirus (PCR) 03/22/21 03/22/21 03/23/21 21:13 23:48 07:04 WBC 11.7 H RBC Hgb Hct MCV 95 H MCHC RDW 16.1 H Plt Count Lymph % (Auto) [place] % (Auto) Lymph # (Auto) [place] # (Auto) Seg Neutrophils % Seg Neuts % (Manual) Lymphocytes % (Manual) Monocytes % (Manual) Nucleated RBC % Seg Neutrophils # Seg Neutrophils # Man Lymphocytes # (Manual) Monocytes # (Manual) PT INR APTT D-Dimer Heparin Anti-Xa Level ABG pH POC ABG pCO2 POC ABG pO2 ABG pO2 ABG HCO3 ABG O2 Saturation ABG Base Excess ABG Hemoglobin ABG Oxyhemoglobin ABG Sodium ABG Potassium ABG Glucose Oxyhemoglobin Carboxyhemoglobin Sodium Potassium Chloride Carbon Dioxide BUN Creatinine Glucose POC Glucose 121 H 114 H Lactic Acid Calcium Phosphorus Magnesium Ferritin Lactate Dehydrogenase C-Reactive Protein NT-Pro-B Natriuret Pep Total Protein Albumin Triglycerides Arterial Blood Glucose Urine pH Ur Specific [place] Coronavirus (PCR) 03/23/21 03/23/21 03/23/21 07:04 08:35 11:19 WBC RBC Hgb Hct MCV MCHC RDW Plt Count Lymph % (Auto) [place] % (Auto) Lymph # (Auto) [place] # (Auto) Seg Neutrophils % Seg Neuts % (Manual) Lymphocytes % (Manual) Monocytes % (Manual) Nucleated RBC % Seg Neutrophils # Seg Neutrophils # Man Lymphocytes # (Manual) Monocytes # (Manual) PT INR APTT D-Dimer Heparin Anti-Xa Level ABG pH 7.345 L POC ABG pCO2 POC ABG pO2 ABG pO2 167.9 H ABG HCO3 32.2 H ABG O2 Saturation ABG Base Excess 4.8 H ABG Hemoglobin 13.4 L ABG Oxyhemoglobin ABG Sodium ABG Potassium ABG Glucose Oxyhemoglobin Carboxyhemoglobin Sodium 148 H Potassium Chloride 111.3 H Carbon Dioxide 31 H BUN 31 H Creatinine Glucose 131 H POC Glucose 165 H Lactic Acid Calcium Phosphorus Magnesium 2.50 H Ferritin Lactate Dehydrogenase C-Reactive Protein NT-Pro-B Natriuret Pep Total Protein Albumin Triglycerides Arterial Blood Glucose Urine pH Ur Specific [place] Coronavirus (PCR) 03/23/21 03/23/21 03/24/21 16:48 20:52 00:07 WBC RBC Hgb Hct MCV MCHC RDW Plt Count Lymph % (Auto) [place] % (Auto) Lymph # (Auto) [place] # (Auto) Seg Neutrophils % Seg Neuts % (Manual) Lymphocytes % (Manual) Monocytes % (Manual) Nucleated RBC % Seg Neutrophils # Seg Neutrophils # Man Lymphocytes # (Manual) Monocytes # (Manual) PT INR APTT D-Dimer Heparin Anti-Xa Level ABG pH POC ABG pCO2 POC ABG pO2 ABG pO2 ABG HCO3 ABG O2 Saturation ABG Base Excess ABG Hemoglobin ABG Oxyhemoglobin ABG Sodium ABG Potassium ABG Glucose Oxyhemoglobin Carboxyhemoglobin Sodium Potassium Chloride Carbon Dioxide BUN Creatinine Glucose POC Glucose 160 H 127 H 147 H Lactic Acid Calcium Phosphorus Magnesium Ferritin Lactate Dehydrogenase C-Reactive Protein NT-Pro-B Natriuret Pep Total Protein Albumin Triglycerides Arterial Blood Glucose Urine pH Ur Specific [place] Coronavirus (PCR) 03/24/21 03/24/21 03/24/21 04:34 04:34 05:20 WBC 13.3 H RBC Hgb Hct MCV MCHC 31 L RDW 16.1 H Plt Count Lymph % (Auto) [place] % (Auto) Lymph # (Auto) [place] # (Auto) Seg Neutrophils % Seg Neuts % (Manual) Lymphocytes % (Manual) Monocytes % (Manual) Nucleated RBC % Seg Neutrophils # Seg Neutrophils # Man Lymphocytes # (Manual) Monocytes # (Manual) PT INR APTT D-Dimer Heparin Anti-Xa Level ABG pH POC ABG pCO2 POC ABG pO2 ABG pO2 ABG HCO3 ABG O2 Saturation ABG Base Excess ABG Hemoglobin ABG Oxyhemoglobin ABG Sodium ABG Potassium ABG Glucose Oxyhemoglobin Carboxyhemoglobin Sodium Potassium 5.2 H Chloride Carbon Dioxide BUN 28 H Creatinine 0.7 L Glucose 152 H POC Glucose 141 H Lactic Acid Calcium Phosphorus Magnesium Ferritin Lactate Dehydrogenase C-Reactive Protein NT-Pro-B Natriuret Pep Total Protein Albumin Triglycerides Arterial Blood Glucose Urine pH Ur Specific [place] Coronavirus (PCR) 03/24/21 03/24/21 03/24/21 09:40 11:38 16:45 WBC RBC Hgb Hct MCV MCHC RDW Plt Count Lymph % (Auto) [place] % (Auto) Lymph # (Auto) [place] # (Auto) Seg Neutrophils % Seg Neuts % (Manual) Lymphocytes % (Manual) Monocytes % (Manual) Nucleated RBC % Seg Neutrophils # Seg Neutrophils # Man Lymphocytes # (Manual) Monocytes # (Manual) PT INR APTT D-Dimer Heparin Anti-Xa Level ABG pH POC ABG pCO2 POC ABG pO2 ABG pO2 ABG HCO3 ABG O2 Saturation ABG Base Excess ABG Hemoglobin ABG Oxyhemoglobin ABG Sodium ABG Potassium ABG Glucose Oxyhemoglobin Carboxyhemoglobin Sodium Potassium Chloride Carbon Dioxide BUN Creatinine Glucose POC Glucose 126 H 136 H 118 H Lactic Acid Calcium Phosphorus Magnesium Ferritin Lactate Dehydrogenase C-Reactive Protein NT-Pro-B Natriuret Pep Total Protein Albumin Triglycerides Arterial Blood Glucose Urine pH Ur Specific [place] Coronavirus (PCR) 03/24/21 03/24/21 03/25/21 21:03 23:49 04:32 WBC RBC Hgb Hct MCV MCHC RDW 16.1 H Plt Count 121 L Lymph % (Auto) [place] % (Auto) Lymph # (Auto) [place] # (Auto) Seg Neutrophils % Seg Neuts % (Manual) Lymphocytes % (Manual) Monocytes % (Manual) Nucleated RBC % Seg Neutrophils # Seg Neutrophils # Man Lymphocytes # (Manual) Monocytes # (Manual) PT INR APTT D-Dimer Heparin Anti-Xa Level ABG pH POC ABG pCO2 POC ABG pO2 ABG pO2 ABG HCO3 ABG O2 Saturation ABG Base Excess ABG Hemoglobin ABG Oxyhemoglobin ABG Sodium ABG Potassium ABG Glucose Oxyhemoglobin Carboxyhemoglobin Sodium Potassium Chloride Carbon Dioxide BUN Creatinine Glucose POC Glucose 116 H 125 H Lactic Acid Calcium Phosphorus Magnesium Ferritin Lactate Dehydrogenase C-Reactive Protein NT-Pro-B Natriuret Pep Total Protein Albumin Triglycerides Arterial Blood Glucose Urine pH Ur Specific [place] Coronavirus (PCR) 03/25/21 03/25/21 03/25/21 04:32 05:21 09:29 WBC RBC Hgb Hct MCV MCHC RDW Plt Count Lymph % (Auto) [place] % (Auto) Lymph # (Auto) [place] # (Auto) Seg Neutrophils % Seg Neuts % (Manual) Lymphocytes % (Manual) Monocytes % (Manual) Nucleated RBC % Seg Neutrophils # Seg Neutrophils # Man Lymphocytes # (Manual) Monocytes # (Manual) PT INR APTT D-Dimer Heparin Anti-Xa Level ABG pH POC ABG pCO2 POC ABG pO2 ABG pO2 ABG HCO3 ABG O2 Saturation ABG Base Excess ABG Hemoglobin ABG Oxyhemoglobin ABG Sodium ABG Potassium ABG Glucose Oxyhemoglobin Carboxyhemoglobin Sodium 135 L D Potassium Chloride Carbon Dioxide BUN 25 H Creatinine 0.7 L Glucose 168 H POC Glucose 149 H 115 H Lactic Acid Calcium Phosphorus Magnesium Ferritin Lactate Dehydrogenase C-Reactive Protein NT-Pro-B Natriuret Pep Total Protein Albumin Triglycerides Arterial Blood Glucose Urine pH Ur Specific [place] Coronavirus (PCR) 03/25/21 03/25/21 03/25/21 12:26 12:35 23:53 WBC RBC Hgb Hct MCV MCHC RDW Plt Count Lymph % (Auto) [place] % (Auto) Lymph # (Auto) [place] # (Auto) Seg Neutrophils % Seg Neuts % (Manual) Lymphocytes % (Manual) Monocytes % (Manual) Nucleated RBC % Seg Neutrophils # Seg Neutrophils # Man Lymphocytes # (Manual) Monocytes # (Manual) PT INR APTT D-Dimer Heparin Anti-Xa Level ABG pH POC ABG pCO2 POC ABG pO2 ABG pO2 100.5 H ABG HCO3 33.6 H ABG O2 Saturation ABG Base Excess 6.4 H ABG Hemoglobin 12.0 L ABG Oxyhemoglobin ABG Sodium ABG Potassium ABG Glucose Oxyhemoglobin Carboxyhemoglobin Sodium Potassium Chloride Carbon Dioxide BUN Creatinine Glucose POC Glucose 108 H 137 H Lactic Acid Calcium Phosphorus Magnesium Ferritin Lactate Dehydrogenase C-Reactive Protein NT-Pro-B Natriuret Pep Total Protein Albumin Triglycerides Arterial Blood Glucose Urine pH Ur Specific [place] Coronavirus (PCR) 03/26/21 03/26/21 03/26/21 05:14 07:09 07:09 WBC RBC Hgb Hct MCV MCHC RDW 16.5 H Plt Count 139 L Lymph % (Auto) [place] % (Auto) Lymph # (Auto) [place] # (Auto) Seg Neutrophils % Seg Neuts % (Manual) Lymphocytes % (Manual) Monocytes % (Manual) Nucleated RBC % Seg Neutrophils # Seg Neutrophils # Man Lymphocytes # (Manual) Monocytes # (Manual) PT INR APTT D-Dimer Heparin Anti-Xa Level ABG pH POC ABG pCO2 POC ABG pO2 ABG pO2 ABG HCO3 ABG O2 Saturation ABG Base Excess ABG Hemoglobin ABG Oxyhemoglobin ABG Sodium ABG Potassium ABG Glucose Oxyhemoglobin Carboxyhemoglobin Sodium Potassium Chloride Carbon Dioxide BUN 22 H Creatinine 0.7 L Glucose 108 H POC Glucose 116 H Lactic Acid Calcium Phosphorus Magnesium Ferritin Lactate Dehydrogenase C-Reactive Protein NT-Pro-B Natriuret Pep Total Protein Albumin Triglycerides Arterial Blood Glucose Urine pH Ur Specific [place] Coronavirus (PCR) 03/26/21 03/26/21 03/26/21 09:51 11:15 16:59 WBC RBC Hgb Hct MCV MCHC RDW Plt Count Lymph % (Auto) [place] % (Auto) Lymph # (Auto) [place] # (Auto) Seg Neutrophils % Seg Neuts % (Manual) Lymphocytes % (Manual) Monocytes % (Manual) Nucleated RBC % Seg Neutrophils # Seg Neutrophils # Man Lymphocytes # (Manual) Monocytes # (Manual) PT INR APTT D-Dimer Heparin Anti-Xa Level ABG pH POC ABG pCO2 POC ABG pO2 ABG pO2 ABG HCO3 ABG O2 Saturation ABG Base Excess ABG Hemoglobin ABG Oxyhemoglobin ABG Sodium ABG Potassium ABG Glucose Oxyhemoglobin Carboxyhemoglobin Sodium Potassium Chloride Carbon Dioxide BUN Creatinine Glucose POC Glucose 107 H 119 H 174 H Lactic Acid Calcium Phosphorus Magnesium Ferritin Lactate Dehydrogenase C-Reactive Protein NT-Pro-B Natriuret Pep Total Protein Albumin Triglycerides Arterial Blood Glucose Urine pH Ur Specific [place] Coronavirus (PCR) 03/26/21 03/27/21 03/27/21 22:18 07:08 10:28 WBC RBC Hgb Hct MCV 95 H MCHC RDW 16.2 H Plt Count 134 L Lymph % (Auto) [place] % (Auto) Lymph # (Auto) [place] # (Auto) Seg Neutrophils % Seg Neuts % (Manual) Lymphocytes % (Manual) Monocytes % (Manual) Nucleated RBC % Seg Neutrophils # Seg Neutrophils # Man Lymphocytes # (Manual) Monocytes # (Manual) PT INR APTT D-Dimer Heparin Anti-Xa Level ABG pH POC ABG pCO2 POC ABG pO2 ABG pO2 ABG HCO3 ABG O2 Saturation ABG Base Excess ABG Hemoglobin ABG Oxyhemoglobin ABG Sodium ABG Potassium ABG Glucose Oxyhemoglobin Carboxyhemoglobin Sodium Potassium Chloride Carbon Dioxide BUN Creatinine Glucose POC Glucose 107 H 52 L Lactic Acid Calcium Phosphorus Magnesium Ferritin Lactate Dehydrogenase C-Reactive Protein NT-Pro-B Natriuret Pep Total Protein Albumin Triglycerides Arterial Blood Glucose Urine pH Ur Specific [place] Coronavirus (PCR) 03/27/21 03/27/21 03/27/21 10:28 11:45 17:39 WBC RBC Hgb Hct MCV MCHC RDW Plt Count Lymph % (Auto) [place] % (Auto) Lymph # (Auto) [place] # (Auto) Seg Neutrophils % Seg Neuts % (Manual) Lymphocytes % (Manual) Monocytes % (Manual) Nucleated RBC % Seg Neutrophils # Seg Neutrophils # Man Lymphocytes # (Manual) Monocytes # (Manual) PT INR APTT D-Dimer Heparin Anti-Xa Level ABG pH POC ABG pCO2 POC ABG pO2 ABG pO2 ABG HCO3 ABG O2 Saturation ABG Base Excess ABG Hemoglobin ABG Oxyhemoglobin ABG Sodium ABG Potassium ABG Glucose Oxyhemoglobin Carboxyhemoglobin Sodium 136 L Potassium Chloride Carbon Dioxide BUN Creatinine 0.7 L Glucose 150 H POC Glucose 121 H 165 H Lactic Acid Calcium Phosphorus Magnesium Ferritin Lactate Dehydrogenase C-Reactive Protein NT-Pro-B Natriuret Pep Total Protein Albumin Triglycerides Arterial Blood Glucose Urine pH Ur Specific [place] Coronavirus (PCR) 03/28/21 03/28/21 03/28/21 07:14 11:42 18:22 WBC RBC Hgb Hct MCV MCHC RDW 16.4 H Plt Count Lymph % (Auto) [place] % (Auto) Lymph # (Auto) [place] # (Auto) Seg Neutrophils % Seg Neuts % (Manual) Lymphocytes % (Manual) Monocytes % (Manual) Nucleated RBC % Seg Neutrophils # Seg Neutrophils # Man Lymphocytes # (Manual) Monocytes # (Manual) PT INR APTT D-Dimer Heparin Anti-Xa Level ABG pH POC ABG pCO2 POC ABG pO2 ABG pO2 ABG HCO3 ABG O2 Saturation ABG Base Excess ABG Hemoglobin ABG Oxyhemoglobin ABG Sodium ABG Potassium ABG Glucose Oxyhemoglobin Carboxyhemoglobin Sodium Potassium Chloride Carbon Dioxide BUN Creatinine Glucose POC Glucose 145 H 169 H Lactic Acid Calcium Phosphorus Magnesium Ferritin Lactate Dehydrogenase C-Reactive Protein NT-Pro-B Natriuret Pep Total Protein Albumin Triglycerides Arterial Blood Glucose Urine pH Ur Specific [place] Coronavirus (PCR) 03/28/21 03/29/21 03/29/21 23:39 04:50 04:50 WBC RBC Hgb 11.0 L Hct 34.9 L MCV MCHC RDW 15.9 H Plt Count Lymph % (Auto) [place] % (Auto) Lymph # (Auto) [place] # (Auto) Seg Neutrophils % Seg Neuts % (Manual) Lymphocytes % (Manual) Monocytes % (Manual) Nucleated RBC % Seg Neutrophils # Seg Neutrophils # Man Lymphocytes # (Manual) Monocytes # (Manual) PT INR APTT D-Dimer Heparin Anti-Xa Level ABG pH POC ABG pCO2 POC ABG pO2 ABG pO2 ABG HCO3 ABG O2 Saturation ABG Base Excess ABG Hemoglobin ABG Oxyhemoglobin ABG Sodium ABG Potassium ABG Glucose Oxyhemoglobin Carboxyhemoglobin Sodium Potassium Chloride Carbon Dioxide 34 H BUN Creatinine 0.6 L Glucose 152 H POC Glucose 139 H Lactic Acid Calcium Phosphorus Magnesium Ferritin Lactate Dehydrogenase C-Reactive Protein NT-Pro-B Natriuret Pep Total Protein Albumin Triglycerides Arterial Blood Glucose Urine pH Ur Specific [place] Coronavirus (PCR) 03/29/21 03/29/21 03/29/21 05:25 11:34 18:02 WBC RBC Hgb Hct MCV MCHC RDW Plt Count Lymph % (Auto) [place] % (Auto) Lymph # (Auto) [place] # (Auto) Seg Neutrophils % Seg Neuts % (Manual) Lymphocytes % (Manual) Monocytes % (Manual) Nucleated RBC % Seg Neutrophils # Seg Neutrophils # Man Lymphocytes # (Manual) Monocytes # (Manual) PT INR APTT D-Dimer Heparin Anti-Xa Level ABG pH POC ABG pCO2 POC ABG pO2 ABG pO2 ABG HCO3 ABG O2 Saturation ABG Base Excess ABG Hemoglobin ABG Oxyhemoglobin ABG Sodium ABG Potassium ABG Glucose Oxyhemoglobin Carboxyhemoglobin Sodium Potassium Chloride Carbon Dioxide BUN Creatinine Glucose POC Glucose 127 H 169 H 173 H Lactic Acid Calcium Phosphorus Magnesium Ferritin Lactate Dehydrogenase C-Reactive Protein NT-Pro-B Natriuret Pep Total Protein Albumin Triglycerides Arterial Blood Glucose Urine pH Ur Specific [place] Coronavirus (PCR) 03/29/21 03/30/21 03/30/21 21:42 00:01 05:36 WBC RBC Hgb Hct MCV MCHC RDW 16.7 H Plt Count Lymph % (Auto) [place] % (Auto) Lymph # (Auto) [place] # (Auto) Seg Neutrophils % Seg Neuts % (Manual) Lymphocytes % (Manual) Monocytes % (Manual) Nucleated RBC % Seg Neutrophils # Seg Neutrophils # Man Lymphocytes # (Manual) Monocytes # (Manual) PT INR APTT D-Dimer Heparin Anti-Xa Level ABG pH POC ABG pCO2 POC ABG pO2 ABG pO2 ABG HCO3 ABG O2 Saturation ABG Base Excess ABG Hemoglobin ABG Oxyhemoglobin ABG Sodium ABG Potassium ABG Glucose Oxyhemoglobin Carboxyhemoglobin Sodium Potassium Chloride Carbon Dioxide BUN Creatinine Glucose POC Glucose 184 H 161 H Lactic Acid Calcium Phosphorus Magnesium Ferritin Lactate Dehydrogenase C-Reactive Protein NT-Pro-B Natriuret Pep Total Protein Albumin Triglycerides Arterial Blood Glucose Urine pH Ur Specific [place] Coronavirus (PCR) 03/30/21 03/30/21 03/30/21 05:36 06:03 11:32 WBC RBC Hgb Hct MCV MCHC RDW Plt Count Lymph % (Auto) [place] % (Auto) Lymph # (Auto) [place] # (Auto) Seg Neutrophils % Seg Neuts % (Manual) Lymphocytes % (Manual) Monocytes % (Manual) Nucleated RBC % Seg Neutrophils # Seg Neutrophils # Man Lymphocytes # (Manual) Monocytes # (Manual) PT INR APTT D-Dimer Heparin Anti-Xa Level ABG pH POC ABG pCO2 POC ABG pO2 ABG pO2 ABG HCO3 ABG O2 Saturation ABG Base Excess ABG Hemoglobin ABG Oxyhemoglobin ABG Sodium ABG Potassium ABG Glucose Oxyhemoglobin Carboxyhemoglobin Sodium Potassium Chloride Carbon Dioxide BUN Creatinine 0.5 L Glucose 127 H POC Glucose 130 H 183 H Lactic Acid Calcium Phosphorus Magnesium Ferritin Lactate Dehydrogenase C-Reactive Protein NT-Pro-B Natriuret Pep Total Protein Albumin Triglycerides Arterial Blood Glucose Urine pH Ur Specific [place] Coronavirus (PCR) 03/30/21 03/30/21 03/30/21 15:00 16:23 21:07 WBC RBC Hgb Hct MCV MCHC RDW Plt Count Lymph % (Auto) [place] % (Auto) Lymph # (Auto) [place] # (Auto) Seg Neutrophils % Seg Neuts % (Manual) Lymphocytes % (Manual) Monocytes % (Manual) Nucleated RBC % Seg Neutrophils # Seg Neutrophils # Man Lymphocytes # (Manual) Monocytes # (Manual) PT INR APTT D-Dimer Heparin Anti-Xa Level ABG pH POC ABG pCO2 POC ABG pO2 ABG pO2 67.2 L ABG HCO3 34.9 H ABG O2 Saturation ABG Base Excess 9.1 H ABG Hemoglobin 11.6 L ABG Oxyhemoglobin ABG Sodium ABG Potassium ABG Glucose Oxyhemoglobin 93.0 L Carboxyhemoglobin Sodium Potassium Chloride Carbon Dioxide BUN Creatinine Glucose POC Glucose 162 H 146 H Lactic Acid Calcium Phosphorus Magnesium Ferritin Lactate Dehydrogenase C-Reactive Protein NT-Pro-B Natriuret Pep Total Protein Albumin Triglycerides Arterial Blood Glucose Urine pH Ur Specific [place] Coronavirus (PCR) 03/30/21 03/31/21 03/31/21 23:23 05:44 11:19 WBC RBC Hgb Hct MCV MCHC RDW Plt Count Lymph % (Auto) [place] % (Auto) Lymph # (Auto) [place] # (Auto) Seg Neutrophils % Seg Neuts % (Manual) Lymphocytes % (Manual) Monocytes % (Manual) Nucleated RBC % Seg Neutrophils # Seg Neutrophils # Man Lymphocytes # (Manual) Monocytes # (Manual) PT INR APTT D-Dimer Heparin Anti-Xa Level ABG pH POC ABG pCO2 POC ABG pO2 ABG pO2 ABG HCO3 ABG O2 Saturation ABG Base Excess ABG Hemoglobin ABG Oxyhemoglobin ABG Sodium ABG Potassium ABG Glucose Oxyhemoglobin Carboxyhemoglobin Sodium Potassium Chloride Carbon Dioxide BUN Creatinine Glucose POC Glucose 138 H 180 H 178 H Lactic Acid Calcium Phosphorus Magnesium Ferritin Lactate Dehydrogenase C-Reactive Protein NT-Pro-B Natriuret Pep Total Protein Albumin Triglycerides Arterial Blood Glucose Urine pH Ur Specific [place] Coronavirus (PCR) 03/31/21 03/31/21 03/31/21 12:50 13:30 16:06 WBC RBC Hgb 11.3 L Hct 35.1 L MCV MCHC RDW 16.5 H Plt Count Lymph % (Auto) 7.6 L [place] % (Auto) 9.5 H Lymph # (Auto) 0.6 L [place] # (Auto) Seg Neutrophils % 78.3 H Seg Neuts % (Manual) Lymphocytes % (Manual) Monocytes % (Manual) Nucleated RBC % Seg Neutrophils # Seg Neutrophils # Man Lymphocytes # (Manual) Monocytes # (Manual) PT INR APTT D-Dimer Heparin Anti-Xa Level ABG pH POC ABG pCO2 POC ABG pO2 ABG pO2 99.4 H ABG HCO3 34.9 H ABG O2 Saturation ABG Base Excess 8.4 H ABG Hemoglobin 11.8 L ABG Oxyhemoglobin ABG Sodium ABG Potassium ABG Glucose Oxyhemoglobin Carboxyhemoglobin Sodium Potassium Chloride Carbon Dioxide BUN Creatinine Glucose POC Glucose 197 H Lactic Acid Calcium Phosphorus Magnesium Ferritin Lactate Dehydrogenase C-Reactive Protein NT-Pro-B Natriuret Pep Total Protein Albumin Triglycerides Arterial Blood Glucose Urine pH Ur Specific [place] Coronavirus (PCR) 03/31/21 04/01/21 04/01/21 20:51 05:37 07:16 WBC RBC 3.39 L Hgb 10.5 L Hct 31.6 L MCV MCHC RDW 16.1 H Plt Count Lymph % (Auto) [place] % (Auto) Lymph # (Auto) [place] # (Auto) Seg Neutrophils % Seg Neuts % (Manual) Lymphocytes % (Manual) Monocytes % (Manual) Nucleated RBC % Seg Neutrophils # Seg Neutrophils # Man Lymphocytes # (Manual) Monocytes # (Manual) PT INR APTT D-Dimer Heparin Anti-Xa Level ABG pH POC ABG pCO2 POC ABG pO2 ABG pO2 ABG HCO3 ABG O2 Saturation ABG Base Excess ABG Hemoglobin ABG Oxyhemoglobin ABG Sodium ABG Potassium ABG Glucose Oxyhemoglobin Carboxyhemoglobin Sodium Potassium Chloride Carbon Dioxide BUN Creatinine Glucose POC Glucose 140 H 128 H Lactic Acid Calcium Phosphorus Magnesium Ferritin Lactate Dehydrogenase C-Reactive Protein NT-Pro-B Natriuret Pep Total Protein Albumin Triglycerides Arterial Blood Glucose Urine pH Ur Specific [place] Coronavirus (PCR) 04/01/21 04/01/21 04/01/21 07:16 11:52 16:56 WBC RBC Hgb Hct MCV MCHC RDW Plt Count Lymph % (Auto) [place] % (Auto) Lymph # (Auto) [place] # (Auto) Seg Neutrophils % Seg Neuts % (Manual) Lymphocytes % (Manual) Monocytes % (Manual) Nucleated RBC % Seg Neutrophils # Seg Neutrophils # Man Lymphocytes # (Manual) Monocytes # (Manual) PT INR APTT D-Dimer Heparin Anti-Xa Level ABG pH POC ABG pCO2 POC ABG pO2 ABG pO2 ABG HCO3 ABG O2 Saturation ABG Base Excess ABG Hemoglobin ABG Oxyhemoglobin ABG Sodium ABG Potassium ABG Glucose Oxyhemoglobin Carboxyhemoglobin Sodium Potassium Chloride Carbon Dioxide BUN Creatinine 0.6 L Glucose 131 H POC Glucose 182 H 179 H Lactic Acid Calcium 8.3 L Phosphorus Magnesium Ferritin Lactate Dehydrogenase C-Reactive Protein NT-Pro-B Natriuret Pep Total Protein Albumin Triglycerides Arterial Blood Glucose Urine pH Ur Specific [place] Coronavirus (PCR) 04/01/21 04/01/21 04/02/21 21:30 23:40 04:26 WBC RBC 3.62 L Hgb 10.8 L Hct 33.9 L MCV MCHC RDW 16.0 H Plt Count Lymph % (Auto) [place] % (Auto) Lymph # (Auto) [place] # (Auto) Seg Neutrophils % Seg Neuts % (Manual) Lymphocytes % (Manual) Monocytes % (Manual) Nucleated RBC % Seg Neutrophils # Seg Neutrophils # Man Lymphocytes # (Manual) Monocytes # (Manual) PT INR APTT D-Dimer Heparin Anti-Xa Level ABG pH POC ABG pCO2 POC ABG pO2 ABG pO2 ABG HCO3 ABG O2 Saturation ABG Base Excess ABG Hemoglobin ABG Oxyhemoglobin ABG Sodium ABG Potassium ABG Glucose Oxyhemoglobin Carboxyhemoglobin Sodium Potassium Chloride Carbon Dioxide BUN Creatinine Glucose POC Glucose 131 H 129 H Lactic Acid Calcium Phosphorus Magnesium Ferritin Lactate Dehydrogenase C-Reactive Protein NT-Pro-B Natriuret Pep Total Protein Albumin Triglycerides Arterial Blood Glucose Urine pH Ur Specific [place] Coronavirus (PCR) 04/02/21 04/02/21 04/02/21 04:26 05:54 11:35 WBC RBC Hgb Hct MCV MCHC RDW Plt Count Lymph % (Auto) [place] % (Auto) Lymph # (Auto) [place] # (Auto) Seg Neutrophils % Seg Neuts % (Manual) Lymphocytes % (Manual) Monocytes % (Manual) Nucleated RBC % Seg Neutrophils # Seg Neutrophils # Man Lymphocytes # (Manual) Monocytes # (Manual) PT INR APTT D-Dimer Heparin Anti-Xa Level ABG pH POC ABG pCO2 POC ABG pO2 ABG pO2 ABG HCO3 ABG O2 Saturation ABG Base Excess ABG Hemoglobin ABG Oxyhemoglobin ABG Sodium ABG Potassium ABG Glucose Oxyhemoglobin Carboxyhemoglobin Sodium 136 L Potassium Chloride Carbon Dioxide BUN Creatinine 0.6 L Glucose 152 H POC Glucose 151 H 178 H Lactic Acid Calcium Phosphorus Magnesium Ferritin Lactate Dehydrogenase C-Reactive Protein NT-Pro-B Natriuret Pep Total Protein Albumin Triglycerides Arterial Blood Glucose Urine pH Ur Specific [place] Coronavirus (PCR) 04/02/21 04/02/21 04/02/21 16:11 21:09 23:38 WBC RBC Hgb Hct MCV MCHC RDW Plt Count Lymph % (Auto) [place] % (Auto) Lymph # (Auto) [place] # (Auto) Seg Neutrophils % Seg Neuts % (Manual) Lymphocytes % (Manual) Monocytes % (Manual) Nucleated RBC % Seg Neutrophils # Seg Neutrophils # Man Lymphocytes # (Manual) Monocytes # (Manual) PT INR APTT D-Dimer Heparin Anti-Xa Level ABG pH POC ABG pCO2 POC ABG pO2 ABG pO2 ABG HCO3 ABG O2 Saturation ABG Base Excess ABG Hemoglobin ABG Oxyhemoglobin ABG Sodium ABG Potassium ABG Glucose Oxyhemoglobin Carboxyhemoglobin Sodium Potassium Chloride Carbon Dioxide BUN Creatinine Glucose POC Glucose 186 H 145 H 152 H Lactic Acid Calcium Phosphorus Magnesium Ferritin Lactate Dehydrogenase C-Reactive Protein NT-Pro-B Natriuret Pep Total Protein Albumin Triglycerides Arterial Blood Glucose Urine pH Ur Specific [place] Coronavirus (PCR) 04/03/21 04/03/21 04/03/21 04:14 04:14 05:27 WBC RBC 3.62 L Hgb 11.0 L Hct 34.0 L MCV MCHC RDW 16.3 H Plt Count Lymph % (Auto) [place] % (Auto) Lymph # (Auto) [place] # (Auto) Seg Neutrophils % Seg Neuts % (Manual) Lymphocytes % (Manual) Monocytes % (Manual) Nucleated RBC % Seg Neutrophils # Seg Neutrophils # Man Lymphocytes # (Manual) Monocytes # (Manual) PT INR APTT D-Dimer Heparin Anti-Xa Level ABG pH POC ABG pCO2 POC ABG pO2 ABG pO2 ABG HCO3 ABG O2 Saturation ABG Base Excess ABG Hemoglobin ABG Oxyhemoglobin ABG Sodium ABG Potassium ABG Glucose Oxyhemoglobin Carboxyhemoglobin Sodium Potassium Chloride Carbon Dioxide 31 H BUN Creatinine 0.6 L Glucose 155 H POC Glucose 165 H Lactic Acid Calcium Phosphorus Magnesium Ferritin Lactate Dehydrogenase C-Reactive Protein NT-Pro-B Natriuret Pep Total Protein Albumin Triglycerides Arterial Blood Glucose Urine pH Ur Specific [place] Coronavirus (PCR) 04/03/21 04/03/21 04/03/21 11:02 16:19 19:45 WBC RBC Hgb Hct MCV MCHC RDW Plt Count Lymph % (Auto) [place] % (Auto) Lymph # (Auto) [place] # (Auto) Seg Neutrophils % Seg Neuts % (Manual) Lymphocytes % (Manual) Monocytes % (Manual) Nucleated RBC % Seg Neutrophils # Seg Neutrophils # Man Lymphocytes # (Manual) Monocytes # (Manual) PT INR APTT D-Dimer Heparin Anti-Xa Level ABG pH POC ABG pCO2 POC ABG pO2 ABG pO2 ABG HCO3 ABG O2 Saturation ABG Base Excess ABG Hemoglobin ABG Oxyhemoglobin ABG Sodium ABG Potassium ABG Glucose Oxyhemoglobin Carboxyhemoglobin Sodium Potassium Chloride Carbon Dioxide BUN Creatinine Glucose POC Glucose 161 H 180 H 136 H Lactic Acid Calcium Phosphorus Magnesium Ferritin Lactate Dehydrogenase C-Reactive Protein NT-Pro-B Natriuret Pep Total Protein Albumin Triglycerides Arterial Blood Glucose Urine pH Ur Specific [place] Coronavirus (PCR) 04/04/21 04/04/21 04/04/21 00:21 04:33 04:33 WBC 13.1 H RBC 3.49 L Hgb 10.3 L Hct 32.7 L MCV MCHC RDW 16.1 H Plt Count Lymph % (Auto) [place] % (Auto) Lymph # (Auto) [place] # (Auto) Seg Neutrophils % Seg Neuts % (Manual) Lymphocytes % (Manual) Monocytes % (Manual) Nucleated RBC % Seg Neutrophils # Seg Neutrophils # Man Lymphocytes # (Manual) Monocytes # (Manual) PT INR APTT D-Dimer Heparin Anti-Xa Level ABG pH POC ABG pCO2 POC ABG pO2 ABG pO2 ABG HCO3 ABG O2 Saturation ABG Base Excess ABG Hemoglobin ABG Oxyhemoglobin ABG Sodium ABG Potassium ABG Glucose Oxyhemoglobin Carboxyhemoglobin Sodium Potassium Chloride Carbon Dioxide 31 H BUN Creatinine 0.4 L Glucose 153 H POC Glucose 140 H Lactic Acid Calcium Phosphorus Magnesium Ferritin Lactate Dehydrogenase C-Reactive Protein NT-Pro-B Natriuret Pep Total Protein Albumin Triglycerides Arterial Blood Glucose Urine pH Ur Specific [place] Coronavirus (PCR) 04/04/21 04/04/21 04/04/21 05:16 11:39 17:22 WBC RBC Hgb Hct MCV MCHC RDW Plt Count Lymph % (Auto) [place] % (Auto) Lymph # (Auto) [place] # (Auto) Seg Neutrophils % Seg Neuts % (Manual) Lymphocytes % (Manual) Monocytes % (Manual) Nucleated RBC % Seg Neutrophils # Seg Neutrophils # Man Lymphocytes # (Manual) Monocytes # (Manual) PT INR APTT D-Dimer Heparin Anti-Xa Level ABG pH POC ABG pCO2 POC ABG pO2 ABG pO2 ABG HCO3 ABG O2 Saturation ABG Base Excess ABG Hemoglobin ABG Oxyhemoglobin ABG Sodium ABG Potassium ABG Glucose Oxyhemoglobin Carboxyhemoglobin Sodium Potassium Chloride Carbon Dioxide BUN Creatinine Glucose POC Glucose 152 H 154 H 198 H Lactic Acid Calcium Phosphorus Magnesium Ferritin Lactate Dehydrogenase C-Reactive Protein NT-Pro-B Natriuret Pep Total Protein Albumin Triglycerides Arterial Blood Glucose Urine pH Ur Specific [place] Coronavirus (PCR) 04/04/21 04/04/21 04/05/21 20:14 23:16 04:15 WBC RBC 3.21 L Hgb 10.0 L Hct 30.3 L MCV MCHC RDW 16.4 H Plt Count Lymph % (Auto) [place] % (Auto) Lymph # (Auto) [place] # (Auto) Seg Neutrophils % Seg Neuts % (Manual) Lymphocytes % (Manual) Monocytes % (Manual) Nucleated RBC % Seg Neutrophils # Seg Neutrophils # Man Lymphocytes # (Manual) Monocytes # (Manual) PT INR APTT D-Dimer Heparin Anti-Xa Level ABG pH POC ABG pCO2 POC ABG pO2 ABG pO2 ABG HCO3 ABG O2 Saturation ABG Base Excess ABG Hemoglobin ABG Oxyhemoglobin ABG Sodium ABG Potassium ABG Glucose Oxyhemoglobin Carboxyhemoglobin Sodium Potassium Chloride Carbon Dioxide BUN Creatinine Glucose POC Glucose 161 H 139 H Lactic Acid Calcium Phosphorus Magnesium Ferritin Lactate Dehydrogenase C-Reactive Protein NT-Pro-B Natriuret Pep Total Protein Albumin Triglycerides Arterial Blood Glucose Urine pH Ur Specific [place] Coronavirus (PCR) 04/05/21 04/05/21 04/05/21 04:15 05:34 12:09 WBC RBC Hgb Hct MCV MCHC RDW Plt Count Lymph % (Auto) [place] % (Auto) Lymph # (Auto) [place] # (Auto) Seg Neutrophils % Seg Neuts % (Manual) Lymphocytes % (Manual) Monocytes % (Manual) Nucleated RBC % Seg Neutrophils # Seg Neutrophils # Man Lymphocytes # (Manual) Monocytes # (Manual) PT INR APTT D-Dimer Heparin Anti-Xa Level ABG pH POC ABG pCO2 POC ABG pO2 ABG pO2 ABG HCO3 ABG O2 Saturation ABG Base Excess ABG Hemoglobin ABG Oxyhemoglobin ABG Sodium ABG Potassium ABG Glucose Oxyhemoglobin Carboxyhemoglobin Sodium Potassium Chloride 97.6 L Carbon Dioxide 32 H BUN Creatinine 0.5 L Glucose 147 H POC Glucose 145 H 173 H Lactic Acid Calcium Phosphorus Magnesium Ferritin Lactate Dehydrogenase C-Reactive Protein NT-Pro-B Natriuret Pep Total Protein Albumin Triglycerides Arterial Blood Glucose Urine pH Ur Specific [place] Coronavirus (PCR) 04/05/21 04/05/21 04/05/21 17:35 21:07 23:15 WBC RBC Hgb Hct MCV MCHC RDW Plt Count Lymph % (Auto) [place] % (Auto) Lymph # (Auto) [place] # (Auto) Seg Neutrophils % Seg Neuts % (Manual) Lymphocytes % (Manual) Monocytes % (Manual) Nucleated RBC % Seg Neutrophils # Seg Neutrophils # Man Lymphocytes # (Manual) Monocytes # (Manual) PT INR APTT D-Dimer Heparin Anti-Xa Level ABG pH POC ABG pCO2 POC ABG pO2 ABG pO2 ABG HCO3 ABG O2 Saturation ABG Base Excess ABG Hemoglobin ABG Oxyhemoglobin ABG Sodium ABG Potassium ABG Glucose Oxyhemoglobin Carboxyhemoglobin Sodium Potassium Chloride Carbon Dioxide BUN Creatinine Glucose POC Glucose 143 H 157 H 171 H Lactic Acid Calcium Phosphorus Magnesium Ferritin Lactate Dehydrogenase C-Reactive Protein NT-Pro-B Natriuret Pep Total Protein Albumin Triglycerides Arterial Blood Glucose Urine pH Ur Specific [place] Coronavirus (PCR) 04/06/21 04/06/21 04/06/21 04:49 05:14 11:42 WBC RBC Hgb Hct MCV MCHC RDW Plt Count Lymph % (Auto) [place] % (Auto) Lymph # (Auto) [place] # (Auto) Seg Neutrophils % Seg Neuts % (Manual) Lymphocytes % (Manual) Monocytes % (Manual) Nucleated RBC % Seg Neutrophils # Seg Neutrophils # Man Lymphocytes # (Manual) Monocytes # (Manual) PT INR APTT D-Dimer Heparin Anti-Xa Level ABG pH POC ABG pCO2 57.4 H POC ABG pO2 55.1 L ABG pO2 ABG HCO3 ABG O2 Saturation ABG Base Excess ABG Hemoglobin 11.5 L ABG Oxyhemoglobin 87.5 L ABG Sodium ABG Potassium ABG Glucose Oxyhemoglobin Carboxyhemoglobin Sodium Potassium Chloride Carbon Dioxide BUN Creatinine Glucose POC Glucose 145 H 171 H Lactic Acid Calcium Phosphorus Magnesium Ferritin Lactate Dehydrogenase C-Reactive Protein NT-Pro-B Natriuret Pep Total Protein Albumin Triglycerides Arterial Blood Glucose Urine pH Ur Specific [place] Coronavirus (PCR) 04/06/21 04/06/21 04/06/21 11:50 15:36 15:36 WBC RBC Hgb 10.4 L Hct 32.5 L MCV MCHC RDW Plt Count 444 H Lymph % (Auto) [place] % (Auto) Lymph # (Auto) [place] # (Auto) Seg Neutrophils % Seg Neuts % (Manual) Lymphocytes % (Manual) Monocytes % (Manual) Nucleated RBC % Seg Neutrophils # Seg Neutrophils # Man Lymphocytes # (Manual) Monocytes # (Manual) PT INR APTT 37.1 H D-Dimer Heparin Anti-Xa Level ABG pH 7.341 L POC ABG pCO2 POC ABG pO2 ABG pO2 108.9 H ABG HCO3 38.9 H ABG O2 Saturation ABG Base Excess 10.6 H ABG Hemoglobin 11.5 L ABG Oxyhemoglobin ABG Sodium ABG Potassium ABG Glucose Oxyhemoglobin Carboxyhemoglobin Sodium Potassium Chloride Carbon Dioxide BUN Creatinine Glucose POC Glucose Lactic Acid Calcium Phosphorus Magnesium Ferritin Lactate Dehydrogenase C-Reactive Protein NT-Pro-B Natriuret Pep Total Protein Albumin Triglycerides Arterial Blood Glucose Urine pH Ur Specific [place] Coronavirus (PCR) 04/06/21 04/07/21 04/07/21 17:57 00:30 00:32 WBC RBC Hgb Hct MCV MCHC RDW Plt Count Lymph % (Auto) [place] % (Auto) Lymph # (Auto) [place] # (Auto) Seg Neutrophils % Seg Neuts % (Manual) Lymphocytes % (Manual) Monocytes % (Manual) Nucleated RBC % Seg Neutrophils # Seg Neutrophils # Man Lymphocytes # (Manual) Monocytes # (Manual) PT INR APTT D-Dimer Heparin Anti-Xa Level < 0.10 L ABG pH POC ABG pCO2 POC ABG pO2 ABG pO2 ABG HCO3 ABG O2 Saturation ABG Base Excess ABG Hemoglobin ABG Oxyhemoglobin ABG Sodium ABG Potassium ABG Glucose Oxyhemoglobin Carboxyhemoglobin Sodium Potassium Chloride Carbon Dioxide BUN Creatinine Glucose POC Glucose 151 H 149 H Lactic Acid Calcium Phosphorus Magnesium Ferritin Lactate Dehydrogenase C-Reactive Protein NT-Pro-B Natriuret Pep Total Protein Albumin Triglycerides Arterial Blood Glucose Urine pH Ur Specific [place] Coronavirus (PCR) 04/07/21 04/07/21 04/07/21 05:34 06:08 06:08 WBC RBC 3.20 L Hgb 9.6 L Hct 29.8 L MCV MCHC RDW 16.0 H Plt Count 455 H Lymph % (Auto) [place] % (Auto) Lymph # (Auto) [place] # (Auto) Seg Neutrophils % Seg Neuts % (Manual) Lymphocytes % (Manual) Monocytes % (Manual) Nucleated RBC % Seg Neutrophils # Seg Neutrophils # Man Lymphocytes # (Manual) Monocytes # (Manual) PT INR APTT D-Dimer Heparin Anti-Xa Level ABG pH POC ABG pCO2 POC ABG pO2 ABG pO2 ABG HCO3 ABG O2 Saturation ABG Base Excess ABG Hemoglobin ABG Oxyhemoglobin ABG Sodium ABG Potassium ABG Glucose Oxyhemoglobin Carboxyhemoglobin Sodium Potassium Chloride Carbon Dioxide 35 H BUN Creatinine 0.5 L Glucose 216 H POC Glucose 182 H Lactic Acid Calcium Phosphorus Magnesium Ferritin Lactate Dehydrogenase C-Reactive Protein NT-Pro-B Natriuret Pep Total Protein Albumin Triglycerides Arterial Blood Glucose Urine pH Ur Specific [place] Coronavirus (PCR) 04/07/21 04/07/21 04/07/21 07:55 11:57 17:12 WBC RBC Hgb Hct MCV MCHC RDW Plt Count Lymph % (Auto) [place] % (Auto) Lymph # (Auto) [place] # (Auto) Seg Neutrophils % Seg Neuts % (Manual) Lymphocytes % (Manual) Monocytes % (Manual) Nucleated RBC % Seg Neutrophils # Seg Neutrophils # Man Lymphocytes # (Manual) Monocytes # (Manual) PT INR APTT D-Dimer Heparin Anti-Xa Level < 0.10 L ABG pH POC ABG pCO2 POC ABG pO2 ABG pO2 ABG HCO3 ABG O2 Saturation ABG Base Excess ABG Hemoglobin ABG Oxyhemoglobin ABG Sodium ABG Potassium ABG Glucose Oxyhemoglobin Carboxyhemoglobin Sodium Potassium Chloride Carbon Dioxide BUN Creatinine Glucose POC Glucose 182 H 165 H Lactic Acid Calcium Phosphorus Magnesium Ferritin Lactate Dehydrogenase C-Reactive Protein NT-Pro-B Natriuret Pep Total Protein Albumin Triglycerides Arterial Blood Glucose Urine pH Ur Specific [place] Coronavirus (PCR) 04/07/21 04/08/21 04/08/21 19:55 00:16 03:57 WBC RBC Hgb Hct MCV MCHC RDW Plt Count Lymph % (Auto) [place] % (Auto) Lymph # (Auto) [place] # (Auto) Seg Neutrophils % Seg Neuts % (Manual) Lymphocytes % (Manual) Monocytes % (Manual) Nucleated RBC % Seg Neutrophils # Seg Neutrophils # Man Lymphocytes # (Manual) Monocytes # (Manual) PT INR APTT D-Dimer Heparin Anti-Xa Level < 0.10 L ABG pH POC ABG pCO2 POC ABG pO2 ABG pO2 ABG HCO3 ABG O2 Saturation ABG Base Excess ABG Hemoglobin ABG Oxyhemoglobin ABG Sodium ABG Potassium ABG Glucose Oxyhemoglobin Carboxyhemoglobin Sodium Potassium 5.8 H Chloride 95.5 L Carbon Dioxide 37 H BUN Creatinine 0.5 L Glucose 161 H POC Glucose 175 H Lactic Acid Calcium Phosphorus Magnesium Ferritin Lactate Dehydrogenase C-Reactive Protein NT-Pro-B Natriuret Pep Total Protein Albumin Triglycerides Arterial Blood Glucose Urine pH Ur Specific [place] Coronavirus (PCR) 04/08/21 04/08/21 04/08/21 04:00 05:43 09:26 WBC RBC 3.25 L Hgb 9.9 L Hct 30.8 L MCV 95 H MCHC RDW 16.0 H Plt Count 487 H Lymph % (Auto) [place] % (Auto) Lymph # (Auto) [place] # (Auto) Seg Neutrophils % Seg Neuts % (Manual) Lymphocytes % (Manual) Monocytes % (Manual) Nucleated RBC % Seg Neutrophils # Seg Neutrophils # Man Lymphocytes # (Manual) Monocytes # (Manual) PT INR APTT D-Dimer Heparin Anti-Xa Level ABG pH POC ABG pCO2 POC ABG pO2 ABG pO2 ABG HCO3 ABG O2 Saturation ABG Base Excess ABG Hemoglobin ABG Oxyhemoglobin ABG Sodium ABG Potassium ABG Glucose Oxyhemoglobin Carboxyhemoglobin Sodium Potassium Chloride Carbon Dioxide BUN Creatinine Glucose POC Glucose 162 H 164 H Lactic Acid Calcium Phosphorus Magnesium Ferritin Lactate Dehydrogenase C-Reactive Protein NT-Pro-B Natriuret Pep Total Protein Albumin Triglycerides Arterial Blood Glucose Urine pH Ur Specific [place] Coronavirus (PCR) 04/08/21 04/08/21 04/08/21 11:53 17:19 20:35 WBC RBC Hgb Hct MCV MCHC RDW Plt Count Lymph % (Auto) [place] % (Auto) Lymph # (Auto) [place] # (Auto) Seg Neutrophils % Seg Neuts % (Manual) Lymphocytes % (Manual) Monocytes % (Manual) Nucleated RBC % Seg Neutrophils # Seg Neutrophils # Man Lymphocytes # (Manual) Monocytes # (Manual) PT INR APTT D-Dimer Heparin Anti-Xa Level ABG pH POC ABG pCO2 POC ABG pO2 ABG pO2 ABG HCO3 ABG O2 Saturation ABG Base Excess ABG Hemoglobin ABG Oxyhemoglobin ABG Sodium ABG Potassium ABG Glucose Oxyhemoglobin Carboxyhemoglobin Sodium Potassium Chloride Carbon Dioxide BUN Creatinine Glucose POC Glucose 170 H 157 H 190 H Lactic Acid Calcium Phosphorus Magnesium Ferritin Lactate Dehydrogenase C-Reactive Protein NT-Pro-B Natriuret Pep Total Protein Albumin Triglycerides Arterial Blood Glucose Urine pH Ur Specific [place] Coronavirus (PCR) 04/08/21 04/09/21 04/09/21 23:52 04:21 04:21 WBC 11.4 H RBC 2.97 L Hgb 8.9 L Hct 27.8 L MCV MCHC RDW 15.8 H Plt Count 485 H Lymph % (Auto) [place] % (Auto) Lymph # (Auto) [place] # (Auto) Seg Neutrophils % Seg Neuts % (Manual) Lymphocytes % (Manual) Monocytes % (Manual) Nucleated RBC % Seg Neutrophils # Seg Neutrophils # Man Lymphocytes # (Manual) Monocytes # (Manual) PT INR APTT D-Dimer Heparin Anti-Xa Level ABG pH POC ABG pCO2 POC ABG pO2 ABG pO2 ABG HCO3 ABG O2 Saturation ABG Base Excess ABG Hemoglobin ABG Oxyhemoglobin ABG Sodium ABG Potassium ABG Glucose Oxyhemoglobin Carboxyhemoglobin Sodium Potassium Chloride 97.1 L Carbon Dioxide 40 H BUN 21 H Creatinine 0.5 L Glucose 149 H POC Glucose 170 H Lactic Acid Calcium Phosphorus 1.90 L D Magnesium Ferritin Lactate Dehydrogenase C-Reactive Protein NT-Pro-B Natriuret Pep Total Protein Albumin Triglycerides Arterial Blood Glucose Urine pH Ur Specific [place] Coronavirus (PCR) 04/09/21 04/09/21 04/09/21 05:27 11:55 17:11 WBC RBC Hgb Hct MCV MCHC RDW Plt Count Lymph % (Auto) [place] % (Auto) Lymph # (Auto) [place] # (Auto) Seg Neutrophils % Seg Neuts % (Manual) Lymphocytes % (Manual) Monocytes % (Manual) Nucleated RBC % Seg Neutrophils # Seg Neutrophils # Man Lymphocytes # (Manual) Monocytes # (Manual) PT INR APTT D-Dimer Heparin Anti-Xa Level ABG pH POC ABG pCO2 POC ABG pO2 ABG pO2 ABG HCO3 ABG O2 Saturation ABG Base Excess ABG Hemoglobin ABG Oxyhemoglobin ABG Sodium ABG Potassium ABG Glucose Oxyhemoglobin Carboxyhemoglobin Sodium Potassium Chloride Carbon Dioxide BUN Creatinine Glucose POC Glucose 144 H 190 H 163 H Lactic Acid Calcium Phosphorus Magnesium Ferritin Lactate Dehydrogenase C-Reactive Protein NT-Pro-B Natriuret Pep Total Protein Albumin Triglycerides Arterial Blood Glucose Urine pH Ur Specific [place] Coronavirus (PCR) 04/09/21 04/09/21 04/09/21 20:10 21:12 23:33 WBC RBC Hgb Hct MCV MCHC RDW Plt Count Lymph % (Auto) [place] % (Auto) Lymph # (Auto) [place] # (Auto) Seg Neutrophils % Seg Neuts % (Manual) Lymphocytes % (Manual) Monocytes % (Manual) Nucleated RBC % Seg Neutrophils # Seg Neutrophils # Man Lymphocytes # (Manual) Monocytes # (Manual) PT INR APTT D-Dimer Heparin Anti-Xa Level ABG pH POC ABG pCO2 POC ABG pO2 ABG pO2 68.1 L ABG HCO3 41.3 H ABG O2 Saturation ABG Base Excess 14.6 H ABG Hemoglobin 10.2 L ABG Oxyhemoglobin ABG Sodium ABG Potassium ABG Glucose Oxyhemoglobin 94.7 L Carboxyhemoglobin Sodium Potassium Chloride Carbon Dioxide BUN Creatinine Glucose POC Glucose 163 H 164 H Lactic Acid Calcium Phosphorus Magnesium Ferritin Lactate Dehydrogenase C-Reactive Protein NT-Pro-B Natriuret Pep Total Protein Albumin Triglycerides Arterial Blood Glucose Urine pH Ur Specific [place] Coronavirus (PCR) 04/10/21 04/10/21 04/10/21 05:26 11:41 13:00 WBC RBC 3.09 L Hgb 9.3 L Hct 28.3 L MCV MCHC RDW 15.8 H Plt Count 480 H Lymph % (Auto) [place] % (Auto) Lymph # (Auto) [place] # (Auto) Seg Neutrophils % Seg Neuts % (Manual) Lymphocytes % (Manual) Monocytes % (Manual) Nucleated RBC % Seg Neutrophils # Seg Neutrophils # Man Lymphocytes # (Manual) Monocytes # (Manual) PT INR APTT D-Dimer Heparin Anti-Xa Level ABG pH POC ABG pCO2 POC ABG pO2 ABG pO2 ABG HCO3 ABG O2 Saturation ABG Base Excess ABG Hemoglobin ABG Oxyhemoglobin ABG Sodium ABG Potassium ABG Glucose Oxyhemoglobin Carboxyhemoglobin Sodium Potassium Chloride Carbon Dioxide BUN Creatinine Glucose POC Glucose 172 H 150 H Lactic Acid Calcium Phosphorus Magnesium Ferritin Lactate Dehydrogenase C-Reactive Protein NT-Pro-B Natriuret Pep Total Protein Albumin Triglycerides Arterial Blood Glucose Urine pH Ur Specific [place] Coronavirus (PCR) 04/10/21 04/10/21 04/10/21 13:00 17:46 21:37 WBC RBC Hgb Hct MCV MCHC RDW Plt Count Lymph % (Auto) [place] % (Auto) Lymph # (Auto) [place] # (Auto) Seg Neutrophils % Seg Neuts % (Manual) Lymphocytes % (Manual) Monocytes % (Manual) Nucleated RBC % Seg Neutrophils # Seg Neutrophils # Man Lymphocytes # (Manual) Monocytes # (Manual) PT INR APTT D-Dimer Heparin Anti-Xa Level ABG pH POC ABG pCO2 POC ABG pO2 ABG pO2 ABG HCO3 ABG O2 Saturation ABG Base Excess ABG Hemoglobin ABG Oxyhemoglobin ABG Sodium ABG Potassium ABG Glucose Oxyhemoglobin Carboxyhemoglobin Sodium Potassium Chloride 96.4 L Carbon Dioxide 34 H BUN Creatinine 0.5 L Glucose 165 H POC Glucose 165 H 166 H Lactic Acid Calcium Phosphorus Magnesium Ferritin Lactate Dehydrogenase C-Reactive Protein NT-Pro-B Natriuret Pep Total Protein Albumin Triglycerides Arterial Blood Glucose Urine pH Ur Specific [place] Coronavirus (PCR) 04/10/21 04/11/21 04/11/21 23:56 04:30 05:39 WBC 11.5 H RBC 3.02 L Hgb 8.9 L Hct 27.8 L MCV MCHC RDW 16.0 H Plt Count 505 H Lymph % (Auto) [place] % (Auto) Lymph # (Auto) [place] # (Auto) Seg Neutrophils % Seg Neuts % (Manual) Lymphocytes % (Manual) Monocytes % (Manual) Nucleated RBC % Seg Neutrophils # Seg Neutrophils # Man Lymphocytes # (Manual) Monocytes # (Manual) PT INR APTT D-Dimer Heparin Anti-Xa Level ABG pH POC ABG pCO2 POC ABG pO2 ABG pO2 ABG HCO3 ABG O2 Saturation ABG Base Excess ABG Hemoglobin ABG Oxyhemoglobin ABG Sodium ABG Potassium ABG Glucose Oxyhemoglobin Carboxyhemoglobin Sodium Potassium Chloride Carbon Dioxide BUN Creatinine Glucose POC Glucose 156 H 164 H Lactic Acid Calcium Phosphorus Magnesium Ferritin Lactate Dehydrogenase C-Reactive Protein NT-Pro-B Natriuret Pep Total Protein Albumin Triglycerides Arterial Blood Glucose Urine pH Ur Specific [place] Coronavirus (PCR) 04/11/21 04/11/21 04/11/21 06:47 06:47 11:29 WBC RBC 3.35 L Hgb 9.8 L Hct 30.7 L MCV MCHC RDW 16.3 H Plt Count 520 H Lymph % (Auto) [place] % (Auto) Lymph # (Auto) [place] # (Auto) Seg Neutrophils % Seg Neuts % (Manual) 76.0 H Lymphocytes % (Manual) 10.0 L Monocytes % (Manual) Nucleated RBC % Seg Neutrophils # Seg Neutrophils # Man 8.3 H Lymphocytes # (Manual) 1.1 L Monocytes # (Manual) PT INR APTT D-Dimer Heparin Anti-Xa Level ABG pH POC ABG pCO2 POC ABG pO2 ABG pO2 ABG HCO3 ABG O2 Saturation ABG Base Excess ABG Hemoglobin ABG Oxyhemoglobin ABG Sodium ABG Potassium ABG Glucose Oxyhemoglobin Carboxyhemoglobin Sodium Potassium Chloride 97.7 L Carbon Dioxide 34 H BUN Creatinine 0.4 L Glucose 178 H POC Glucose 170 H Lactic Acid Calcium Phosphorus Magnesium Ferritin Lactate Dehydrogenase C-Reactive Protein NT-Pro-B Natriuret Pep Total Protein Albumin Triglycerides Arterial Blood Glucose Urine pH Ur Specific [place] Coronavirus (PCR) 04/11/21 04/11/21 04/11/21 18:17 18:17 18:17 WBC RBC 3.22 L Hgb 9.5 L Hct 29.8 L MCV MCHC RDW 16.0 H Plt Count Lymph % (Auto) [place] % (Auto) Lymph # (Auto) [place] # (Auto) Seg Neutrophils % Seg Neuts % (Manual) Lymphocytes % (Manual) Monocytes % (Manual) Nucleated RBC % Seg Neutrophils # Seg Neutrophils # Man Lymphocytes # (Manual) Monocytes # (Manual) PT INR APTT 61.1 H* D-Dimer Heparin Anti-Xa Level ABG pH POC ABG pCO2 POC ABG pO2 ABG pO2 ABG HCO3 ABG O2 Saturation ABG Base Excess ABG Hemoglobin ABG Oxyhemoglobin ABG Sodium ABG Potassium ABG Glucose Oxyhemoglobin Carboxyhemoglobin Sodium Potassium Chloride Carbon Dioxide BUN Creatinine 0.3 L Glucose POC Glucose Lactic Acid Calcium Phosphorus Magnesium Ferritin Lactate Dehydrogenase C-Reactive Protein NT-Pro-B Natriuret Pep Total Protein Albumin Triglycerides Arterial Blood Glucose Urine pH Ur Specific [place] Coronavirus (PCR) 04/11/21 04/12/21 04/12/21 18:25 00:19 05:11 WBC RBC 2.92 L Hgb 8.6 L Hct 26.9 L MCV MCHC RDW 16.3 H Plt Count 460 H Lymph % (Auto) [place] % (Auto) Lymph # (Auto) [place] # (Auto) Seg Neutrophils % Seg Neuts % (Manual) Lymphocytes % (Manual) Monocytes % (Manual) Nucleated RBC % Seg Neutrophils # Seg Neutrophils # Man Lymphocytes # (Manual) Monocytes # (Manual) PT INR APTT D-Dimer Heparin Anti-Xa Level ABG pH POC ABG pCO2 POC ABG pO2 ABG pO2 ABG HCO3 ABG O2 Saturation ABG Base Excess ABG Hemoglobin ABG Oxyhemoglobin ABG Sodium ABG Potassium ABG Glucose Oxyhemoglobin Carboxyhemoglobin Sodium Potassium Chloride Carbon Dioxide BUN Creatinine Glucose POC Glucose 167 H 128 H Lactic Acid Calcium Phosphorus Magnesium Ferritin Lactate Dehydrogenase C-Reactive Protein NT-Pro-B Natriuret Pep Total Protein Albumin Triglycerides Arterial Blood Glucose Urine pH Ur Specific [place] Coronavirus (PCR) 04/12/21 04/12/21 04/12/21 05:11 05:11 06:23 WBC RBC Hgb Hct MCV MCHC RDW Plt Count Lymph % (Auto) [place] % (Auto) Lymph # (Auto) [place] # (Auto) Seg Neutrophils % Seg Neuts % (Manual) Lymphocytes % (Manual) Monocytes % (Manual) Nucleated RBC % Seg Neutrophils # Seg Neutrophils # Man Lymphocytes # (Manual) Monocytes # (Manual) PT INR APTT D-Dimer Heparin Anti-Xa Level 1.03 H ABG pH POC ABG pCO2 POC ABG pO2 ABG pO2 ABG HCO3 ABG O2 Saturation ABG Base Excess ABG Hemoglobin ABG Oxyhemoglobin ABG Sodium ABG Potassium ABG Glucose Oxyhemoglobin Carboxyhemoglobin Sodium Potassium Chloride Carbon Dioxide 34 H BUN Creatinine 0.3 L Glucose 153 H POC Glucose 162 H Lactic Acid Calcium Phosphorus Magnesium Ferritin Lactate Dehydrogenase C-Reactive Protein NT-Pro-B Natriuret Pep Total Protein Albumin Triglycerides Arterial Blood Glucose Urine pH Ur Specific [place] Coronavirus (PCR) 04/12/21 04/12/21 04/12/21 09:45 11:08 15:56 WBC RBC Hgb Hct MCV MCHC RDW Plt Count Lymph % (Auto) [place] % (Auto) Lymph # (Auto) [place] # (Auto) Seg Neutrophils % Seg Neuts % (Manual) Lymphocytes % (Manual) Monocytes % (Manual) Nucleated RBC % Seg Neutrophils # Seg Neutrophils # Man Lymphocytes # (Manual) Monocytes # (Manual) PT INR APTT D-Dimer Heparin Anti-Xa Level ABG pH POC ABG pCO2 POC ABG pO2 ABG pO2 70.8 L ABG HCO3 41.0 H ABG O2 Saturation ABG Base Excess 13.7 H ABG Hemoglobin 8.3 L ABG Oxyhemoglobin ABG Sodium ABG Potassium ABG Glucose Oxyhemoglobin 94.0 L Carboxyhemoglobin Sodium Potassium Chloride Carbon Dioxide BUN Creatinine Glucose POC Glucose 174 H 146 H Lactic Acid Calcium Phosphorus Magnesium Ferritin Lactate Dehydrogenase C-Reactive Protein NT-Pro-B Natriuret Pep Total Protein Albumin Triglycerides Arterial Blood Glucose Urine pH Ur Specific [place] Coronavirus (PCR) 04/12/21 04/12/21 04/13/21 21:55 23:25 04:34 WBC 12.5 H RBC 2.97 L Hgb 8.9 L Hct 27.3 L MCV MCHC RDW 16.4 H Plt Count 470 H Lymph % (Auto) [place] % (Auto) Lymph # (Auto) [place] # (Auto) Seg Neutrophils % Seg Neuts % (Manual) Lymphocytes % (Manual) Monocytes % (Manual) Nucleated RBC % Seg Neutrophils # Seg Neutrophils # Man Lymphocytes # (Manual) Monocytes # (Manual) PT INR APTT D-Dimer Heparin Anti-Xa Level ABG pH POC ABG pCO2 POC ABG pO2 ABG pO2 ABG HCO3 ABG O2 Saturation ABG Base Excess ABG Hemoglobin ABG Oxyhemoglobin ABG Sodium ABG Potassium ABG Glucose Oxyhemoglobin Carboxyhemoglobin Sodium Potassium Chloride Carbon Dioxide BUN Creatinine Glucose POC Glucose 142 H 170 H Lactic Acid Calcium Phosphorus Magnesium Ferritin Lactate Dehydrogenase C-Reactive Protein NT-Pro-B Natriuret Pep Total Protein Albumin Triglycerides Arterial Blood Glucose Urine pH Ur Specific [place] Coronavirus (PCR) 04/13/21 04/13/21 04/13/21 04:34 05:17 11:14 WBC RBC Hgb Hct MCV MCHC RDW Plt Count Lymph % (Auto) [place] % (Auto) Lymph # (Auto) [place] # (Auto) Seg Neutrophils % Seg Neuts % (Manual) Lymphocytes % (Manual) Monocytes % (Manual) Nucleated RBC % Seg Neutrophils # Seg Neutrophils # Man Lymphocytes # (Manual) Monocytes # (Manual) PT INR APTT D-Dimer Heparin Anti-Xa Level ABG pH POC ABG pCO2 POC ABG pO2 ABG pO2 ABG HCO3 ABG O2 Saturation ABG Base Excess ABG Hemoglobin ABG Oxyhemoglobin ABG Sodium ABG Potassium ABG Glucose Oxyhemoglobin Carboxyhemoglobin Sodium Potassium Chloride 96.6 L Carbon Dioxide 41 H* D BUN Creatinine 0.3 L Glucose 171 H POC Glucose 141 H 149 H Lactic Acid Calcium Phosphorus Magnesium Ferritin Lactate Dehydrogenase C-Reactive Protein NT-Pro-B Natriuret Pep Total Protein Albumin Triglycerides Arterial Blood Glucose Urine pH Ur Specific [place] Coronavirus (PCR) 04/13/21 04/13/21 04/14/21 15:51 23:35 04:32 WBC 13.8 H RBC 2.64 L Hgb 8.0 L Hct 24.1 L MCV MCHC RDW 16.1 H Plt Count Lymph % (Auto) [place] % (Auto) Lymph # (Auto) [place] # (Auto) Seg Neutrophils % Seg Neuts % (Manual) Lymphocytes % (Manual) Monocytes % (Manual) Nucleated RBC % Seg Neutrophils # Seg Neutrophils # Man Lymphocytes # (Manual) Monocytes # (Manual) PT INR APTT D-Dimer Heparin Anti-Xa Level ABG pH POC ABG pCO2 POC ABG pO2 ABG pO2 ABG HCO3 ABG O2 Saturation ABG Base Excess ABG Hemoglobin ABG Oxyhemoglobin ABG Sodium ABG Potassium ABG Glucose Oxyhemoglobin Carboxyhemoglobin Sodium Potassium Chloride Carbon Dioxide BUN Creatinine Glucose POC Glucose 136 H 167 H Lactic Acid Calcium Phosphorus Magnesium Ferritin Lactate Dehydrogenase C-Reactive Protein NT-Pro-B Natriuret Pep Total Protein Albumin Triglycerides Arterial Blood Glucose Urine pH Ur Specific [place] Coronavirus (PCR) 04/14/21 04/14/21 04/14/21 04:32 05:18 11:03 WBC RBC Hgb Hct MCV MCHC RDW Plt Count Lymph % (Auto) [place] % (Auto) Lymph # (Auto) [place] # (Auto) Seg Neutrophils % Seg Neuts % (Manual) Lymphocytes % (Manual) Monocytes % (Manual) Nucleated RBC % Seg Neutrophils # Seg Neutrophils # Man Lymphocytes # (Manual) Monocytes # (Manual) PT INR APTT D-Dimer Heparin Anti-Xa Level ABG pH POC ABG pCO2 POC ABG pO2 ABG pO2 ABG HCO3 ABG O2 Saturation ABG Base Excess ABG Hemoglobin ABG Oxyhemoglobin ABG Sodium ABG Potassium ABG Glucose Oxyhemoglobin Carboxyhemoglobin Sodium Potassium Chloride 95.5 L Carbon Dioxide 38 H BUN Creatinine 0.4 L Glucose 141 H POC Glucose 140 H 143 H Lactic Acid Calcium Phosphorus Magnesium Ferritin Lactate Dehydrogenase C-Reactive Protein NT-Pro-B Natriuret Pep Total Protein Albumin Triglycerides Arterial Blood Glucose Urine pH Ur Specific [place] Coronavirus (PCR) 04/14/21 04/14/21 04/14/21 16:38 23:46 Unknown WBC RBC Hgb Hct MCV MCHC RDW Plt Count Lymph % (Auto) [place] % (Auto) Lymph # (Auto) [place] # (Auto) Seg Neutrophils % Seg Neuts % (Manual) Lymphocytes % (Manual) Monocytes % (Manual) Nucleated RBC % Seg Neutrophils # Seg Neutrophils # Man Lymphocytes # (Manual) Monocytes # (Manual) PT INR APTT D-Dimer Heparin Anti-Xa Level ABG pH POC ABG pCO2 POC ABG pO2 ABG pO2 ABG HCO3 ABG O2 Saturation ABG Base Excess ABG Hemoglobin ABG Oxyhemoglobin ABG Sodium ABG Potassium ABG Glucose Oxyhemoglobin Carboxyhemoglobin Sodium Potassium Chloride Carbon Dioxide BUN Creatinine Glucose POC Glucose 157 H 155 H Lactic Acid Calcium Phosphorus Magnesium Ferritin Lactate Dehydrogenase C-Reactive Protein NT-Pro-B Natriuret Pep Total Protein Albumin Triglycerides Arterial Blood Glucose Urine pH 8.0 H Ur Specific [place] Coronavirus (PCR) 04/15/21 04/15/21 04/15/21 04:44 04:44 05:52 WBC 15.8 H RBC 2.96 L Hgb 8.9 L Hct 27.1 L MCV MCHC RDW 16.5 H Plt Count 507 H Lymph % (Auto) [place] % (Auto) Lymph # (Auto) [place] # (Auto) Seg Neutrophils % Seg Neuts % (Manual) Lymphocytes % (Manual) Monocytes % (Manual) Nucleated RBC % Seg Neutrophils # Seg Neutrophils # Man Lymphocytes # (Manual) Monocytes # (Manual) PT INR APTT D-Dimer Heparin Anti-Xa Level ABG pH POC ABG pCO2 POC ABG pO2 ABG pO2 ABG HCO3 ABG O2 Saturation ABG Base Excess ABG Hemoglobin ABG Oxyhemoglobin ABG Sodium ABG Potassium ABG Glucose Oxyhemoglobin Carboxyhemoglobin Sodium Potassium Chloride 96.9 L Carbon Dioxide 38 H BUN Creatinine 0.4 L Glucose 163 H POC Glucose 167 H Lactic Acid Calcium Phosphorus Magnesium Ferritin Lactate Dehydrogenase C-Reactive Protein NT-Pro-B Natriuret Pep Total Protein Albumin Triglycerides Arterial Blood Glucose Urine pH Ur Specific [place] Coronavirus (PCR) 04/15/21 04/15/21 04/15/21 11:35 17:20 18:10 WBC RBC Hgb Hct MCV MCHC RDW Plt Count Lymph % (Auto) [place] % (Auto) Lymph # (Auto) [place] # (Auto) Seg Neutrophils % Seg Neuts % (Manual) Lymphocytes % (Manual) Monocytes % (Manual) Nucleated RBC % Seg Neutrophils # Seg Neutrophils # Man Lymphocytes # (Manual) Monocytes # (Manual) PT INR APTT D-Dimer Heparin Anti-Xa Level ABG pH 7.477 H POC ABG pCO2 POC ABG pO2 ABG pO2 ABG HCO3 40.6 H ABG O2 Saturation ABG Base Excess 15.2 H ABG Hemoglobin 9.0 L ABG Oxyhemoglobin ABG Sodium ABG Potassium ABG Glucose Oxyhemoglobin 94.7 L Carboxyhemoglobin Sodium Potassium Chloride Carbon Dioxide BUN Creatinine Glucose POC Glucose 179 H 165 H Lactic Acid Calcium Phosphorus Magnesium Ferritin Lactate Dehydrogenase C-Reactive Protein NT-Pro-B Natriuret Pep Total Protein Albumin Triglycerides Arterial Blood Glucose Urine pH Ur Specific [place] Coronavirus (PCR) 04/15/21 04/16/21 04/16/21 23:39 04:33 04:33 WBC 13.1 H RBC 3.26 L Hgb 9.5 L Hct 30.2 L MCV MCHC 31 L RDW 16.2 H Plt Count Lymph % (Auto) [place] % (Auto) Lymph # (Auto) [place] # (Auto) Seg Neutrophils % Seg Neuts % (Manual) Lymphocytes % (Manual) Monocytes % (Manual) Nucleated RBC % Seg Neutrophils # Seg Neutrophils # Man Lymphocytes # (Manual) Monocytes # (Manual) PT INR APTT D-Dimer Heparin Anti-Xa Level ABG pH POC ABG pCO2 POC ABG pO2 ABG pO2 ABG HCO3 ABG O2 Saturation ABG Base Excess ABG Hemoglobin ABG Oxyhemoglobin ABG Sodium ABG Potassium ABG Glucose Oxyhemoglobin Carboxyhemoglobin Sodium Potassium Chloride 95.8 L Carbon Dioxide 34 H BUN 24 H Creatinine 0.4 L Glucose 153 H POC Glucose 155 H Lactic Acid Calcium Phosphorus Magnesium 2.40 H Ferritin Lactate Dehydrogenase C-Reactive Protein NT-Pro-B Natriuret Pep Total Protein Albumin Triglycerides Arterial Blood Glucose Urine pH Ur Specific [place] Coronavirus (PCR) 04/16/21 04/16/21 04/16/21 04:55 05:29 11:02 WBC RBC Hgb Hct MCV MCHC RDW Plt Count Lymph % (Auto) [place] % (Auto) Lymph # (Auto) [place] # (Auto) Seg Neutrophils % Seg Neuts % (Manual) Lymphocytes % (Manual) Monocytes % (Manual) Nucleated RBC % Seg Neutrophils # Seg Neutrophils # Man Lymphocytes # (Manual) Monocytes # (Manual) PT INR APTT D-Dimer Heparin Anti-Xa Level ABG pH 7.487 H POC ABG pCO2 POC ABG pO2 ABG pO2 75.4 L ABG HCO3 40.6 H ABG O2 Saturation ABG Base Excess 15.3 H ABG Hemoglobin 8.9 L ABG Oxyhemoglobin ABG Sodium ABG Potassium ABG Glucose Oxyhemoglobin Carboxyhemoglobin Sodium Potassium Chloride Carbon Dioxide BUN Creatinine Glucose POC Glucose 168 H 170 H Lactic Acid Calcium Phosphorus Magnesium Ferritin Lactate Dehydrogenase C-Reactive Protein NT-Pro-B Natriuret Pep Total Protein Albumin Triglycerides Arterial Blood Glucose Urine pH Ur Specific [place] Coronavirus (PCR) 04/16/21 04/16/21 04/17/21 16:13 23:41 04:25 WBC 12.5 H RBC 3.00 L Hgb 8.9 L Hct 27.2 L MCV MCHC RDW 16.0 H Plt Count Lymph % (Auto) [place] % (Auto) Lymph # (Auto) [place] # (Auto) Seg Neutrophils % Seg Neuts % (Manual) Lymphocytes % (Manual) Monocytes % (Manual) Nucleated RBC % Seg Neutrophils # Seg Neutrophils # Man Lymphocytes # (Manual) Monocytes # (Manual) PT INR APTT D-Dimer Heparin Anti-Xa Level ABG pH POC ABG pCO2 POC ABG pO2 ABG pO2 ABG HCO3 ABG O2 Saturation ABG Base Excess ABG Hemoglobin ABG Oxyhemoglobin ABG Sodium ABG Potassium ABG Glucose Oxyhemoglobin Carboxyhemoglobin Sodium Potassium Chloride Carbon Dioxide BUN Creatinine Glucose POC Glucose 167 H 150 H Lactic Acid Calcium Phosphorus Magnesium Ferritin Lactate Dehydrogenase C-Reactive Protein NT-Pro-B Natriuret Pep Total Protein Albumin Triglycerides Arterial Blood Glucose Urine pH Ur Specific [place] Coronavirus (PCR) 04/17/21 04/17/21 04/17/21 04:25 05:23 11:18 WBC RBC Hgb Hct MCV MCHC RDW Plt Count Lymph % (Auto) [place] % (Auto) Lymph # (Auto) [place] # (Auto) Seg Neutrophils % Seg Neuts % (Manual) Lymphocytes % (Manual) Monocytes % (Manual) Nucleated RBC % Seg Neutrophils # Seg Neutrophils # Man Lymphocytes # (Manual) Monocytes # (Manual) PT INR APTT D-Dimer Heparin Anti-Xa Level ABG pH POC ABG pCO2 POC ABG pO2 ABG pO2 ABG HCO3 ABG O2 Saturation ABG Base Excess ABG Hemoglobin ABG Oxyhemoglobin ABG Sodium ABG Potassium ABG Glucose Oxyhemoglobin Carboxyhemoglobin Sodium 136 L Potassium Chloride 92.4 L Carbon Dioxide 36 H BUN 23 H Creatinine 0.4 L Glucose 145 H POC Glucose 128 H 163 H Lactic Acid Calcium Phosphorus Magnesium Ferritin Lactate Dehydrogenase C-Reactive Protein NT-Pro-B Natriuret Pep Total Protein Albumin Triglycerides Arterial Blood Glucose Urine pH Ur Specific [place] Coronavirus (PCR) 04/17/21 04/17/21 04/18/21 16:50 21:04 00:18 WBC RBC Hgb Hct MCV MCHC RDW Plt Count Lymph % (Auto) [place] % (Auto) Lymph # (Auto) [place] # (Auto) Seg Neutrophils % Seg Neuts % (Manual) Lymphocytes % (Manual) Monocytes % (Manual) Nucleated RBC % Seg Neutrophils # Seg Neutrophils # Man Lymphocytes # (Manual) Monocytes # (Manual) PT INR APTT D-Dimer Heparin Anti-Xa Level ABG pH POC ABG pCO2 POC ABG pO2 ABG pO2 ABG HCO3 ABG O2 Saturation ABG Base Excess ABG Hemoglobin ABG Oxyhemoglobin ABG Sodium ABG Potassium ABG Glucose Oxyhemoglobin Carboxyhemoglobin Sodium Potassium Chloride Carbon Dioxide BUN Creatinine Glucose POC Glucose 137 H 186 H 194 H Lactic Acid Calcium Phosphorus Magnesium Ferritin Lactate Dehydrogenase C-Reactive Protein NT-Pro-B Natriuret Pep Total Protein Albumin Triglycerides Arterial Blood Glucose Urine pH Ur Specific [place] Coronavirus (PCR) 04/18/21 04/18/21 04/18/21 04:20 04:20 05:21 WBC 14.2 H RBC 2.92 L Hgb 8.5 L Hct 26.3 L MCV MCHC RDW 16.1 H Plt Count Lymph % (Auto) [place] % (Auto) Lymph # (Auto) [place] # (Auto) Seg Neutrophils % Seg Neuts % (Manual) Lymphocytes % (Manual) Monocytes % (Manual) Nucleated RBC % Seg Neutrophils # Seg Neutrophils # Man Lymphocytes # (Manual) Monocytes # (Manual) PT INR APTT D-Dimer Heparin Anti-Xa Level ABG pH POC ABG pCO2 POC ABG pO2 ABG pO2 ABG HCO3 ABG O2 Saturation ABG Base Excess ABG Hemoglobin ABG Oxyhemoglobin ABG Sodium ABG Potassium ABG Glucose Oxyhemoglobin Carboxyhemoglobin Sodium Potassium Chloride 95.7 L Carbon Dioxide 33 H BUN 21 H Creatinine 0.3 L Glucose 120 H POC Glucose 107 H Lactic Acid Calcium Phosphorus Magnesium Ferritin Lactate Dehydrogenase C-Reactive Protein NT-Pro-B Natriuret Pep Total Protein Albumin Triglycerides Arterial Blood Glucose Urine pH Ur Specific [place] Coronavirus (PCR) 04/18/21 04/18/21 04/18/21 05:26 11:30 11:33 WBC RBC Hgb Hct MCV MCHC RDW Plt Count Lymph % (Auto) [place] % (Auto) Lymph # (Auto) [place] # (Auto) Seg Neutrophils % Seg Neuts % (Manual) Lymphocytes % (Manual) Monocytes % (Manual) Nucleated RBC % Seg Neutrophils # Seg Neutrophils # Man Lymphocytes # (Manual) Monocytes # (Manual) PT INR APTT D-Dimer Heparin Anti-Xa Level ABG pH 7.469 H POC ABG pCO2 POC ABG pO2 ABG pO2 108.9 H ABG HCO3 36.2 H ABG O2 Saturation ABG Base Excess 11.2 H ABG Hemoglobin 8.8 L ABG Oxyhemoglobin ABG Sodium ABG Potassium ABG Glucose Oxyhemoglobin Carboxyhemoglobin Sodium Potassium Chloride Carbon Dioxide BUN Creatinine Glucose POC Glucose 111 H 113 H Lactic Acid Calcium Phosphorus Magnesium Ferritin Lactate Dehydrogenase C-Reactive Protein NT-Pro-B Natriuret Pep Total Protein Albumin Triglycerides Arterial Blood Glucose Urine pH Ur Specific [place] Coronavirus (PCR) 04/18/21 04/18/21 04/19/21 16:53 23:26 04:26 WBC 13.6 H RBC 2.69 L Hgb 8.5 L Hct 24.4 L MCV MCHC 35 H RDW 15.9 H Plt Count Lymph % (Auto) [place] % (Auto) Lymph # (Auto) [place] # (Auto) Seg Neutrophils % Seg Neuts % (Manual) Lymphocytes % (Manual) Monocytes % (Manual) Nucleated RBC % Seg Neutrophils # Seg Neutrophils # Man Lymphocytes # (Manual) Monocytes # (Manual) PT INR APTT D-Dimer Heparin Anti-Xa Level ABG pH POC ABG pCO2 POC ABG pO2 ABG pO2 ABG HCO3 ABG O2 Saturation ABG Base Excess ABG Hemoglobin ABG Oxyhemoglobin ABG Sodium ABG Potassium ABG Glucose Oxyhemoglobin Carboxyhemoglobin Sodium Potassium Chloride Carbon Dioxide BUN Creatinine Glucose POC Glucose 139 H 137 H Lactic Acid Calcium Phosphorus Magnesium Ferritin Lactate Dehydrogenase C-Reactive Protein NT-Pro-B Natriuret Pep Total Protein Albumin Triglycerides Arterial Blood Glucose Urine pH Ur Specific [place] Coronavirus (PCR) 04/19/21 04/19/21 04/19/21 04:26 05:16 11:01 WBC RBC Hgb Hct MCV MCHC RDW Plt Count Lymph % (Auto) [place] % (Auto) Lymph # (Auto) [place] # (Auto) Seg Neutrophils % Seg Neuts % (Manual) Lymphocytes % (Manual) Monocytes % (Manual) Nucleated RBC % Seg Neutrophils # Seg Neutrophils # Man Lymphocytes # (Manual) Monocytes # (Manual) PT INR APTT D-Dimer Heparin Anti-Xa Level ABG pH POC ABG pCO2 POC ABG pO2 ABG pO2 ABG HCO3 ABG O2 Saturation ABG Base Excess ABG Hemoglobin ABG Oxyhemoglobin ABG Sodium ABG Potassium ABG Glucose Oxyhemoglobin Carboxyhemoglobin Sodium Potassium Chloride Carbon Dioxide BUN Creatinine 0.3 L Glucose 163 H POC Glucose 154 H 164 H Lactic Acid Calcium Phosphorus Magnesium Ferritin Lactate Dehydrogenase C-Reactive Protein NT-Pro-B Natriuret Pep Total Protein Albumin Triglycerides Arterial Blood Glucose Urine pH Ur Specific [place] Coronavirus (PCR) 04/19/21 04/19/21 04/19/21 15:55 21:00 23:13 WBC RBC Hgb Hct MCV MCHC RDW Plt Count Lymph % (Auto) [place] % (Auto) Lymph # (Auto) [place] # (Auto) Seg Neutrophils % Seg Neuts % (Manual) Lymphocytes % (Manual) Monocytes % (Manual) Nucleated RBC % Seg Neutrophils # Seg Neutrophils # Man Lymphocytes # (Manual) Monocytes # (Manual) PT INR APTT D-Dimer Heparin Anti-Xa Level ABG pH POC ABG pCO2 POC ABG pO2 ABG pO2 ABG HCO3 ABG O2 Saturation ABG Base Excess ABG Hemoglobin ABG Oxyhemoglobin ABG Sodium ABG Potassium ABG Glucose Oxyhemoglobin Carboxyhemoglobin Sodium Potassium Chloride Carbon Dioxide BUN Creatinine Glucose POC Glucose 138 H 151 H 147 H Lactic Acid Calcium Phosphorus Magnesium Ferritin Lactate Dehydrogenase C-Reactive Protein NT-Pro-B Natriuret Pep Total Protein Albumin Triglycerides Arterial Blood Glucose Urine pH Ur Specific [place] Coronavirus (PCR) 04/20/21 04/20/21 04/20/21 04:17 04:17 05:15 WBC 13.1 H RBC 2.94 L Hgb 8.8 L Hct 26.8 L MCV MCHC RDW 16.2 H Plt Count Lymph % (Auto) [place] % (Auto) Lymph # (Auto) [place] # (Auto) Seg Neutrophils % Seg Neuts % (Manual) Lymphocytes % (Manual) Monocytes % (Manual) Nucleated RBC % Seg Neutrophils # Seg Neutrophils # Man Lymphocytes # (Manual) Monocytes # (Manual) PT INR APTT D-Dimer Heparin Anti-Xa Level ABG pH POC ABG pCO2 POC ABG pO2 ABG pO2 ABG HCO3 ABG O2 Saturation ABG Base Excess ABG Hemoglobin ABG Oxyhemoglobin ABG Sodium ABG Potassium ABG Glucose Oxyhemoglobin Carboxyhemoglobin Sodium 135 L Potassium Chloride Carbon Dioxide BUN Creatinine 0.3 L Glucose 151 H POC Glucose 126 H Lactic Acid Calcium 8.3 L Phosphorus Magnesium Ferritin Lactate Dehydrogenase C-Reactive Protein NT-Pro-B Natriuret Pep Total Protein Albumin Triglycerides Arterial Blood Glucose Urine pH Ur Specific [place] Coronavirus (PCR) 04/20/21 04/20/21 04/20/21 11:03 16:01 23:54 WBC RBC Hgb Hct MCV MCHC RDW Plt Count Lymph % (Auto) [place] % (Auto) Lymph # (Auto) [place] # (Auto) Seg Neutrophils % Seg Neuts % (Manual) Lymphocytes % (Manual) Monocytes % (Manual) Nucleated RBC % Seg Neutrophils # Seg Neutrophils # Man Lymphocytes # (Manual) Monocytes # (Manual) PT INR APTT D-Dimer Heparin Anti-Xa Level ABG pH POC ABG pCO2 POC ABG pO2 ABG pO2 ABG HCO3 ABG O2 Saturation ABG Base Excess ABG Hemoglobin ABG Oxyhemoglobin ABG Sodium ABG Potassium ABG Glucose Oxyhemoglobin Carboxyhemoglobin Sodium Potassium Chloride Carbon Dioxide BUN Creatinine Glucose POC Glucose 154 H 152 H 145 H Lactic Acid Calcium Phosphorus Magnesium Ferritin Lactate Dehydrogenase C-Reactive Protein NT-Pro-B Natriuret Pep Total Protein Albumin Triglycerides Arterial Blood Glucose Urine pH Ur Specific [place] Coronavirus (PCR) 04/21/21 04/21/21 04/21/21 04:39 11:20 11:37 WBC RBC Hgb Hct MCV MCHC RDW Plt Count Lymph % (Auto) [place] % (Auto) Lymph # (Auto) [place] # (Auto) Seg Neutrophils % Seg Neuts % (Manual) Lymphocytes % (Manual) Monocytes % (Manual) Nucleated RBC % Seg Neutrophils # Seg Neutrophils # Man Lymphocytes # (Manual) Monocytes # (Manual) PT INR APTT D-Dimer Heparin Anti-Xa Level ABG pH 7.503 H POC ABG pCO2 POC ABG pO2 ABG pO2 ABG HCO3 ABG O2 Saturation ABG Base Excess ABG Hemoglobin 10.8 L ABG Oxyhemoglobin ABG Sodium ABG Potassium ABG Glucose Oxyhemoglobin Carboxyhemoglobin 0.1 L Sodium Potassium Chloride Carbon Dioxide BUN Creatinine 0.3 L Glucose 174 H POC Glucose 147 H Lactic Acid Calcium Phosphorus Magnesium Ferritin Lactate Dehydrogenase C-Reactive Protein NT-Pro-B Natriuret Pep Total Protein Albumin Triglycerides Arterial Blood Glucose Urine pH Ur Specific [place] Coronavirus (PCR) 04/21/21 04/21/21 04/21/21 11:48 12:11 17:56 WBC 14.5 H RBC 3.08 L Hgb 9.3 L Hct 28.2 L MCV MCHC RDW 16.5 H Plt Count Lymph % (Auto) [place] % (Auto) Lymph # (Auto) [place] # (Auto) Seg Neutrophils % Seg Neuts % (Manual) Lymphocytes % (Manual) Monocytes % (Manual) Nucleated RBC % Seg Neutrophils # Seg Neutrophils # Man Lymphocytes # (Manual) Monocytes # (Manual) PT INR APTT D-Dimer Heparin Anti-Xa Level ABG pH POC ABG pCO2 POC ABG pO2 ABG pO2 ABG HCO3 ABG O2 Saturation ABG Base Excess ABG Hemoglobin ABG Oxyhemoglobin ABG Sodium ABG Potassium ABG Glucose Oxyhemoglobin Carboxyhemoglobin Sodium Potassium Chloride Carbon Dioxide BUN Creatinine Glucose POC Glucose 154 H 138 H Lactic Acid Calcium Phosphorus Magnesium Ferritin Lactate Dehydrogenase C-Reactive Protein NT-Pro-B Natriuret Pep Total Protein Albumin Triglycerides Arterial Blood Glucose Urine pH Ur Specific [place] Coronavirus (PCR) 04/21/21 04/22/21 04/22/21 23:31 04:30 04:30 WBC 12.3 H RBC 3.20 L Hgb 9.5 L Hct 29.3 L MCV MCHC RDW 16.6 H Plt Count Lymph % (Auto) [place] % (Auto) Lymph # (Auto) [place] # (Auto) Seg Neutrophils % Seg Neuts % (Manual) Lymphocytes % (Manual) Monocytes % (Manual) Nucleated RBC % Seg Neutrophils # Seg Neutrophils # Man Lymphocytes # (Manual) Monocytes # (Manual) PT INR APTT D-Dimer Heparin Anti-Xa Level ABG pH POC ABG pCO2 POC ABG pO2 ABG pO2 ABG HCO3 ABG O2 Saturation ABG Base Excess ABG Hemoglobin ABG Oxyhemoglobin ABG Sodium ABG Potassium ABG Glucose Oxyhemoglobin Carboxyhemoglobin Sodium Potassium Chloride Carbon Dioxide BUN Creatinine 0.3 L Glucose 125 H POC Glucose 162 H Lactic Acid Calcium Phosphorus Magnesium Ferritin Lactate Dehydrogenase C-Reactive Protein NT-Pro-B Natriuret Pep Total Protein Albumin Triglycerides Arterial Blood Glucose Urine pH Ur Specific [place] Coronavirus (PCR) 04/22/21 04/22/21 04/22/21 05:17 12:03 17:22 WBC RBC Hgb Hct MCV MCHC RDW Plt Count Lymph % (Auto) [place] % (Auto) Lymph # (Auto) [place] # (Auto) Seg Neutrophils % Seg Neuts % (Manual) Lymphocytes % (Manual) Monocytes % (Manual) Nucleated RBC % Seg Neutrophils # Seg Neutrophils # Man Lymphocytes # (Manual) Monocytes # (Manual) PT INR APTT D-Dimer Heparin Anti-Xa Level ABG pH POC ABG pCO2 POC ABG pO2 ABG pO2 ABG HCO3 ABG O2 Saturation ABG Base Excess ABG Hemoglobin ABG Oxyhemoglobin ABG Sodium ABG Potassium ABG Glucose Oxyhemoglobin Carboxyhemoglobin Sodium Potassium Chloride Carbon Dioxide BUN Creatinine Glucose POC Glucose 112 H 156 H 133 H Lactic Acid Calcium Phosphorus Magnesium Ferritin Lactate Dehydrogenase C-Reactive Protein NT-Pro-B Natriuret Pep Total Protein Albumin Triglycerides Arterial Blood Glucose Urine pH Ur Specific [place] Coronavirus (PCR) 04/23/21 04/23/21 04/23/21 00:58 05:08 12:59 WBC RBC Hgb Hct MCV MCHC RDW Plt Count Lymph % (Auto) [place] % (Auto) Lymph # (Auto) [place] # (Auto) Seg Neutrophils % Seg Neuts % (Manual) Lymphocytes % (Manual) Monocytes % (Manual) Nucleated RBC % Seg Neutrophils # Seg Neutrophils # Man Lymphocytes # (Manual) Monocytes # (Manual) PT INR APTT D-Dimer Heparin Anti-Xa Level ABG pH POC ABG pCO2 POC ABG pO2 ABG pO2 ABG HCO3 ABG O2 Saturation ABG Base Excess ABG Hemoglobin ABG Oxyhemoglobin ABG Sodium ABG Potassium ABG Glucose Oxyhemoglobin Carboxyhemoglobin Sodium Potassium Chloride Carbon Dioxide BUN Creatinine Glucose POC Glucose 133 H 156 H 139 H Lactic Acid Calcium Phosphorus Magnesium Ferritin Lactate Dehydrogenase C-Reactive Protein NT-Pro-B Natriuret Pep Total Protein Albumin Triglycerides Arterial Blood Glucose Urine pH Ur Specific [place] Coronavirus (PCR) 04/23/21 04/23/21 04/24/21 18:12 23:41 04:00 WBC 12.9 H RBC 3.33 L Hgb 10.2 L Hct 30.1 L MCV MCHC RDW 16.6 H Plt Count Lymph % (Auto) [place] % (Auto) Lymph # (Auto) [place] # (Auto) Seg Neutrophils % Seg Neuts % (Manual) Lymphocytes % (Manual) Monocytes % (Manual) Nucleated RBC % Seg Neutrophils # Seg Neutrophils # Man Lymphocytes # (Manual) Monocytes # (Manual) PT INR APTT D-Dimer Heparin Anti-Xa Level ABG pH POC ABG pCO2 POC ABG pO2 ABG pO2 ABG HCO3 ABG O2 Saturation ABG Base Excess ABG Hemoglobin ABG Oxyhemoglobin ABG Sodium ABG Potassium ABG Glucose Oxyhemoglobin Carboxyhemoglobin Sodium Potassium Chloride Carbon Dioxide BUN Creatinine Glucose POC Glucose 148 H 127 H Lactic Acid Calcium Phosphorus Magnesium Ferritin Lactate Dehydrogenase C-Reactive Protein NT-Pro-B Natriuret Pep Total Protein Albumin Triglycerides Arterial Blood Glucose Urine pH Ur Specific [place] Coronavirus (PCR) 04/24/21 04/24/21 04/24/21 04:00 05:15 11:45 WBC RBC Hgb Hct MCV MCHC RDW Plt Count Lymph % (Auto) [place] % (Auto) Lymph # (Auto) [place] # (Auto) Seg Neutrophils % Seg Neuts % (Manual) Lymphocytes % (Manual) Monocytes % (Manual) Nucleated RBC % Seg Neutrophils # Seg Neutrophils # Man Lymphocytes # (Manual) Monocytes # (Manual) PT INR APTT D-Dimer Heparin Anti-Xa Level ABG pH POC ABG pCO2 POC ABG pO2 ABG pO2 ABG HCO3 ABG O2 Saturation ABG Base Excess ABG Hemoglobin ABG Oxyhemoglobin ABG Sodium ABG Potassium ABG Glucose Oxyhemoglobin Carboxyhemoglobin Sodium Potassium Chloride Carbon Dioxide BUN Creatinine 0.4 L Glucose 136 H POC Glucose 135 H 140 H Lactic Acid Calcium Phosphorus Magnesium Ferritin Lactate Dehydrogenase C-Reactive Protein NT-Pro-B Natriuret Pep Total Protein Albumin Triglycerides Arterial Blood Glucose Urine pH Ur Specific [place] Coronavirus (PCR) 04/24/21 04/24/21 04/24/21 16:06 18:26 23:48 WBC RBC Hgb Hct MCV MCHC RDW Plt Count Lymph % (Auto) [place] % (Auto) Lymph # (Auto) [place] # (Auto) Seg Neutrophils % Seg Neuts % (Manual) Lymphocytes % (Manual) Monocytes % (Manual) Nucleated RBC % Seg Neutrophils # Seg Neutrophils # Man Lymphocytes # (Manual) Monocytes # (Manual) PT INR APTT D-Dimer Heparin Anti-Xa Level ABG pH POC ABG pCO2 POC ABG pO2 ABG pO2 ABG HCO3 ABG O2 Saturation ABG Base Excess ABG Hemoglobin ABG Oxyhemoglobin ABG Sodium ABG Potassium ABG Glucose Oxyhemoglobin Carboxyhemoglobin Sodium Potassium Chloride Carbon Dioxide BUN Creatinine Glucose POC Glucose 141 H 141 H 129 H Lactic Acid Calcium Phosphorus Magnesium Ferritin Lactate Dehydrogenase C-Reactive Protein NT-Pro-B Natriuret Pep Total Protein Albumin Triglycerides Arterial Blood Glucose Urine pH Ur Specific [place] Coronavirus (PCR) 04/25/21 04/25/21 05:27 11:27 WBC RBC Hgb Hct MCV MCHC RDW Plt Count Lymph % (Auto) [place] % (Auto) Lymph # (Auto) [place] # (Auto) Seg Neutrophils % Seg Neuts % (Manual) Lymphocytes % (Manual) Monocytes % (Manual) Nucleated RBC % Seg Neutrophils # Seg Neutrophils # Man Lymphocytes # (Manual) Monocytes # (Manual) PT INR APTT D-Dimer Heparin Anti-Xa Level ABG pH POC ABG pCO2 POC ABG pO2 ABG pO2 ABG HCO3 ABG O2 Saturation ABG Base Excess ABG Hemoglobin ABG Oxyhemoglobin ABG Sodium ABG Potassium ABG Glucose Oxyhemoglobin Carboxyhemoglobin Sodium Potassium Chloride Carbon Dioxide BUN Creatinine Glucose POC Glucose 142 H 151 H Lactic Acid Calcium Phosphorus Magnesium Ferritin Lactate Dehydrogenase C-Reactive Protein NT-Pro-B Natriuret Pep Total Protein Albumin Triglycerides Arterial Blood Glucose Urine pH Ur Specific [place] Coronavirus (PCR) Allied health notes reviewed: nursing
--- NOTE | 2021-04-25 14:07 | Progress Note ---
Assessment and Plan Cultures: SARS CoV2 PCR: positive 03/08/2021 blood culture: no growth 03/10/2021 sputum culture: Usual respiratory marlyn 03/16/2021 blood culture: no growth 03/18/2021 sputum culture: Stenotrophomonas 03/31/2021 Blood culture: no growth 03/31/2021 tracheal aspirate: usual resp marlyn 04/14/2021 sputum culture: MSSA 04/14/2021 blood culture: No growth 04/14/2021 urine culture: No growth 04/15/2021 right middle lobe respiratory culture: MSSA A/P: 61-year-old male with diabetes, hypertension admitted to the hospital with complaints of shortness of breath and feeling weak for the last 1 week: #Sepsis secondary to bilateral pneumonia: secondary to COVID-19. Completed remdesivir, s/p Actemra, steroids. Completed abx for bacterial pneumonia, Stenotrophomonas. #MSSA pneumonia #Acute hypoxic respiratory failure: s/p trach and PEG. #DM #HTN #Acute DVT in RUE Recs: -continue higher dose cefazolin 3 g q8 hrs, may need a long course of abx (MSSA can cause severe pneumonia including necrotizing pneumonia). PLanned 14 days -monitor fever and WBC G. Joslyn Goins MD [facility] ([facility] O: [phone] F: [phone] Subjective Date of service: 04/25/21 Principal diagnosis: COVID-19 infection; DM II; Bilateral pneumonia; Obesity; HTN Interval history: Afebrile, no acute concerns. Objective - Exam Narrative Exam: Physical exam deferred to reduce risk of transmission of COVID-19. Please refer to primary team's note. - Constitutional Vitals: Vital Signs Temp Pulse Resp BP Pulse Ox 98.4 F 95 H 18 120/77 100 04/25/21 12:00 04/25/21 12:00 04/25/21 12:00 04/25/21 12:00 04/25/21 12:00 Temperature -Last 24 Hours Temperature 98.4 F Temperature 98.6 F Temperature 98.3 F Temperature 98.8 F Temperature 98.3 F Temperature 99.2 F - Labs CBC & Chem 7: 04/24/21 04:00 04/24/21 04:00 Labs: Abnormal lab results 04/24/21 04/24/21 04/24/21 Range/Units 16:06 18:26 23:48 POC Glucose 141 H 141 H 129 H (70-105) mg/dL 04/25/21 04/25/21 Range/Units 05:27 11:27 POC Glucose 142 H 151 H (70-105) mg/dL
[2021-04-25 15:43] LABS: BUN/Creatinine Ratio 28; Blood Urea Nitrogen 11 mg/dL (9-20); Hemolysis Index 43
[2021-04-25] MEDS: INSULIN GLARGINE 100 UNITS/ML SUB-Q SCH (23:40)
[2021-04-26] MEDS: hydrALAZINE 25 MG TAB PO SCH (06:03)
[2021-04-26] MEDS: INSULIN LISPRO 100 UNIT/ML SUB-Q SCH ×4 (06:04→20:08)
[2021-04-26] MEDS: ARFORMOTEROL 15 MCG/2 ML NEBU IH SCH ×2 (08:23→21:55)
[2021-04-26] MEDS: METOPROLOL TARTRATE 25 MG TAB PO SCH (09:32)
[2021-04-26] MEDS: APIXABAN 5 MG TAB PO SCH (09:32)
[2021-04-26] MEDS: FAMOTIDINE 20 MG TAB FEEDTUBE SCH ×2 (09:32→21:10)
[2021-04-26] MEDS: GLYCOPYRROLATE 2 MG TAB PO SCH ×3 (09:32→20:18)
[2021-04-26] MEDS: amLODIPine 5 MG TAB PO SCH (09:32)
[2021-04-26] MEDS: DOCUSATE SODIUM 100 MG/10 ML ORAL LIQD PO SCH (09:32)
--- NOTE | 2021-04-26 10:36 | Progress Note ---
<DEBBY ELLISON - Last Filed: 04/26/21 18:13> Assessment and Plan Assessment and plan: This is a 61-year-old male with past medical history of HTN and DM admitted for sepsis and acute hypoxic respiratory failure 2/2 COVID pneumonia s/p Trach and PEG on 2/2 Hospital Course to Date: 03/09: The patient was seen and evaluated today, and he was found to be hemodynamically stable. The patient is currently on BiPAP for possible COVID-19 pneumonia. He was started on Lovenox 1mg/kg for DVT ppx in the setting of d- dimer > 10,000. Infectious Disease was consulted. The patient is pending a TTE. 03/10: No acute events overnight, patient was intubated in the afternoon transferred to ICU 03/11: Patient started on Lantus, free water flushes increased, propofol drip resumed and oral antihypertensive added. 03/12: lantus increased, k at 5, will monitor. I updated his family and his stated that he is not vaccinated. He does have HTN and she will call the RN to update home medications. She did say he takes bystolic and amlopine. She inquired about ventilator and lab work. She had no further questions. 03/13: KVNG overnight. Patient remains hyperglycemic, basal insulin adjusted and increased to Q12hrs. Patient is overall net positive since admit X1 dose of IV lasix, repeat BMP this afternoon. 03/14: Failed SAT this am due to increase agitation, tachycardia and hypertension. Remains on propofol and fentanyl gtt. Hyperkalemia treated with PO kayaxalate. Patient responded to IV lasix yesterday additional dose again today for a net negative balance. Repeat BMP this afternoon. Insulin adjusted for hyperglycemia. 03/15: Remains encephalopathic, not following commansd. Orders placed for CT head/Brain and Neuro consulted. Rectal bleeding subsided, most likely due to hemorrhoids. H&H is stable will continue to monitor. Kayaxexalate for high K, repeat labs 4 to 6hrs post treatment. 03/16: Still agiated this am, CT head with no acute Abn. CXR and ABG noted- evolving pna and worsening hypoxia, now with low grade fevers. Sputum culture ordered, IV Abx added, ID on cosult. 03/17: This am ABG noted, hypoxia improved. Continue to wean FiO2 as tolerated. Still with low grade fevers, on IV Abx per ID. Still with periods of confusion despite sedation, seroquel increased. F/u CXR in the am 03/18: still very agitated especially when off sedation, with hypertension and tachycardia. Continue sedation for RASS -2, PRN antihypertensive for SPB greater than 160. This febrile this am, continue current IV abx per ID 03/19: Patient afebrile overnight, continue IV Abx per ID. ABG also improved this am, continue to wean FIO2 as tolerated. PRN antihypertensive for hypertension. 03/20: Hyperkalemia treated with Kayexalate, Good discontinued, vancomycin and cefepime stopped started Bactrim by ID. Steroid taper started. 03/21: BB started for hypertension, Seroquel increased for agitation and Librium started no acute events reported overnight. [facility] made vent changes 03/22: Adjustment to anxiolytics, respiratory rate on ventilator per [facility]. Patient noted to have bleeding hemorrhoids with clot, requested RN to remove bowel management system and will order Preparation H. 03/23: Given no confirmed DVT or PE (only superficial thrombus noted on Dopplers) therapeutic Lovenox changed to prophylactic Lovenox. Started on doxazosin to help with retention. Consulted surgery for tracheostomy and propofol discontinued. 03/24: Surgery consult completed, patient changed to prophylaxis anticoagulation, started on doxazosin yesterday with plans to remove Good catheter in 48 hours. Patient with slight hypokalemia today and given Kayexalate. No acute events reported overnight. 03/25: No acute events reported overnight. Patient remains on fentanyl drip and on CPAP trial this morning. 03/26: no acute events reported overnight. placed on CPAP this AM, remains on fent/librium. scheduled for trach/peg this week. 03/27: Hypoglycemic this am, will decreased lantus to Qhs. Plan for possible Trach and Peg by Gen Surg this am. Case management to arrange possible LTAC placement 03/28: KVNG overnight. Tolerating PST this am. Plan for trach and PEG tomorrow by Gen. Surgery, NPO after midnight. 03/29: No significant changes overnight. Plan for trach and Peg today. Case management to arrange possible LTAC placement 2/3. S/p Trach and PEG, no complications noted. High residual yesterday despite NPO status, reglan added X2 days. Per RN no residual this am, patient is tolerating TF. Continue to advance TF as tolerated. Norvasc added for hypertension. Pitting edema also appreciated, some diuretic might be beneficial, will d/w CCM. Continue daily PST as tolerated. 2: Patient remains on the vent still on fentanyl gtt with periods of agitation. PRN analgesia added, plan to start weaning off fentanyl gtt. Febrile this am, completed IV abx course. Will panculture for now, ID is also following. 04/01: Still febrile overnight, cultures result pending, continue IV ABx per ID. Failed PST this am. Continue daily PST and vent wean per [facility]. Case management to arrange possible placement. 04/02: KVNG overnight. Fevers improved overnight, continue to follow cultures data, IV ABx per ID. Continue daily PST and wean vent as per [facility].\ 04/03: Given low procalcitonin, unchanged CXR and cultures with no growth cefepime was discontinued by ID. LTAC evaluation ongoing. No acute events reported overnight. 04/04: IV Lasix stopped today, Seroquel taper started, fentanyl drip on hold and steroids stopped. Pressure support trial again today. 04/05: Patient had to be restarted on fentanyl drip therefore Seroquel was increased back to 250 twice daily and he was started on scheduled narcotics and efforts to wean fentanyl drip. Doxazosin was increased to twice daily as patient still had retention issues on doxazosin once a day. Patient was denied LTAC placement. CPAP trial today. 04/06: Right upper extremity ultrasound obtained due to edema which showed DVT. Patient started on heparin drip. Overnight patient had hypoxia, tachypnea, tachycardia, hypotension and FiO2 was increased to 100%. RT titrating as tolerated. Plan was to start T-piece trials today. Patient has been denied LT AC placement. 04/07: BLE dopplar, continue lasix per [facility], CXR in AM. Increase in fio2 overnight d/t desaturation. Wean FiO2 as tolerated. 04/08: Patient remains on 65% FiO2, s/p Lasix for 3 doses, hyperkalemia noted today and medically treated. [facility] plans to consult heme/onc once FiO2 decreased. Remains on heparin gtt 04/09: No acute events reported overnight, possible heme-onc consult on Saturday or Saturday regarding upper extremity DVT, wean FiO2 as tolerated. Repeat CT head on Monday 04/10: Patient mentation is unchanged, repeat CT head today. Remains on heparin gtt per protocol. Continue daily PST as tolerated. 04/11: Increased work of breathing and high RR overnight, vent FiO2 increased to 55%. Resolved this am, patient is tolerating PST, no acute distress noted. Wean Fio2 as tolerated for SPO2 above 92%, Follow up CXR and ABG in the am. Antihypertensive regimen adjusted for better BP control. 04/12: Patient with coarse lungs and increased secretion today. This am CXR noted with worsen infiltrate, 40 of Lasix given, repeat CXR in the am. Patient remains afebrile, complete IV Abx course, VSS. Transitioned to PO Eliquis overnight, continue to keep patient net negative for better lung compliance. Continue daily PST as tolerated. 04/13: Patient is off sedation this am. Remains unresponsive. Librium D/C and Seroquel was adjusted to Qhs, PRN analgesia for pain management. Patient responded well to IV lasix, this am CXR with some improvement, additional IV lasix ordered again today. high CO2 also noted from this am, ABG ordered. Patient is tolerating PST this am, SPO2 remains above 95%. Continue daily PST plan to get patient off the vent for possible SNF placemement 04/14: Patient mentation is unchanged despite reducing sedative agents. Will hold all scheduled sedatives agents for now, PRN analgesics for pain management and vent synchrony. Patient spike a temp this am, orders placed for cultures, IV abx per ID. Additional lasix today, F/u CXR in the am. Patient is tolerating PST this am. 04/15: Remains febrile overnight. Culture data pending, back on IV Abx per ID. Gentle fluid management with IV lasix. Keep patient at a net negative balance. Continue daily PST as tolerated. 04/16: Open eyes spontaneously this am, but still not following commands. MRI brain ordered. Continue to avoid any sedative agents. Patient continue to respond very well to IV diuretic, continue gentle diurese X3days as tolerated. Continue daily PST as tolerated. Plan is get patient off the vent for possible SNF placement. Patient remains febrile this am, now cefepine and Vanc, continue IV abx per ID. 04/17: We will repeat procalcitonin per ID, MRI brain pending, SNF placement pending, [facility] plans to start T-piece trials in the morning and will discontinue Good catheter again. 04/18: Overnight patient to be straight cath x2 but did eventually have spontaneous urine output today and Good catheter was not replaced, patient had MRI brain today and was started on T-piece trials. He received Versed for sedation for MRI brain. 04/19: Good catheter was not replaced overnight patient is still voiding, placed on T-piece today, scopolamine and Robinul restarted. 04/20: Patient T-piece trial again today, will decrease bowel regimen in a.m. for entering T-piece for 24 hours obtain gas in the a.m. Cefazolin increased 04/21: Patient remained on trach collar throughout the day, will be transitioned to IMCU. Good catheter was replaced overnight due to retention. 04/22: Patient continues to tolerate Trach collar, still with volume overload will continue with diuresis, monitor electrolytes, aggressive pulmonary toliet, aspiration precautions 04/23: Patient remains on trach collar which he is tolerating. Remains on cefazolin, Cardura and Lasix. 04/24: KVNG overnight. Patient is AAO, following commands, and tolerating T-piece. Continue PT 5X/week. Pending SNF vs Subacute rehab placement, case management to arrange. 04/25: KVNG overnight. Remains stable, tolerating T-piece. Plan for possible PSMV trial with speech once available. 04/26: Patient remains stable on T-piece. Awaiting possible SNF placement, case management to arrange. Assessment and Plan #Acute Hypoxic Respiratory Failure #COVID Pneumonia - Intubated on 03/10 due to worsen hypoxia on BIPAP - 2/2 s/p Tracheostomy - T-piece- 28% and 5L - Pulmonary on consult - Continue Nebs per [facility] - Pulmonary hygiene - keep patient net negative for better lung compliance - Aspiration precaution HOB above 30 - Continue SPO2 monitoring for SPO2 goal above 92% #Sepsis #COVID Pneumonia #MSSA pneumonia -Infectious disease consulted, appreciate recommendations -S/p remdesivir for 5 days -S/p Actemra 03/10/2021 -f/u blood culture -Monitor WBC and temperature curve -s/p steroids -04/18 procal 0.19 -03/16 Fungitell and histoplasma negative -On high dose Cefazolin per ID #Acute Encephalopathy-improved - AAO, following commands - CT head/brain no acute Abn. - Repeat CT head and MRI brain noted - Avoid benzodiazepine to reduce the possibility of delirium - Prn analgesia for pain management - Maintenance of sleep-wake cycle - PT consulted, appreciate recommendations: PT recommends subacute rehab if patient does not qualify for LTAC #Hypertension - 03/09 Echocardiogram shows a mildly dilated ascending aorta, normal LV systolic function, mild concentric LVH, LVEF 60 to 65% - Continue current antihypertensive regimen - PRN Labetalol for SBP above 160 - Continue Blood pressure monitoring per protocol #Urinary retention - Good catheter removed 04/17 and replaced 04/21 - Continue Doxazosin BID - Strict intake and output - Avoid nephrotoxic medications; Renally dose medications - Monitor and replace electrolytes as needed - Trend BMP #Acute right upper extremity DVT - Bilateral lower extremity ultrasounds negative for DVT, superficial thrombus in left gastrocnemius vein - CTA chest shows no gross pulm embolism - bilateral upper extremity ultrasound shows DVT in right upper extremity - Continue PO Eliquis - SCDs to BLE while in bed - Transfuse hemoglobin less than 7 - Monitor for signs of bleeding #Endo:Type 2 DM - Continue high dose SSI Q6hrs - Lantus qHs - Avoid Hypoglycemia The high probability of a clinically significant, sudden or life threatening deterioration of the [Respiratory] system(s) required my full and direct attention, intervention and personal management. The aggregate critical care time was [35] minutes. This time is in addition to time spent performing re ported procedures but includes the following: [x] Data Review and interpretation [x] Patient assessment and monitoring of vital signs [x] Documentation [x] Medication orders and management Disposition Plan: IMCU Total Time Spent with Patient (Minutes): 35 History Interval history: Patient seen and examined at the bedside. AAO, following commands. KVNG overnight Hospitalist Physical - Constitutional Vitals: Temp Pulse Resp BP Pulse Ox 98.6 F 95 H 20 138/83 99 04/26/21 04:00 04/26/21 09:32 04/26/21 08:23 04/26/21 06:03 04/26/21 08:23 General appearance: Present: no acute distress, well-nourished, obese - EENT Eyes: Present: PERRL, EOM intact ENT: hearing intact - Neck Neck: Present: normal ROM - Respiratory Respiratory effort: normal Respiratory: bilateral: rhonchi - Cardiovascular Rhythm: regular Heart Sounds: Present: S1 & S2 - Extremities Extremities: no ischemia, pulses intact, pulses symmetrical Extremity abnormal: edema - Peripheral Assessment Generalized Edema Type: Non-pitting Edema Degree: 2+ Capillary Refill: < 3 seconds Skin Temperature: Warm Peripheral Pulses: within normal limits - Abdominal General gastrointestinal: soft, non-distended, normal bowel sounds - Integumentary Integumentary: Present: warm, dry - Psychiatric Psychiatric: appropriate mood/affect, cooperative - Neurologic Neurologic: moves all extremities - Allied Health Allied health notes reviewed: nursing, case management Results - Labs CBC & Chem 7: 04/24/21 04:00 04/25/21 15:04 Labs: Laboratory Last Values WBC 12.9 K/mm3 (4.5-11.0) H 04/24/21 04:00 RBC 3.33 M/mm3 (3.65-5.03) L 04/24/21 04:00 Hgb 10.2 gm/dl (11.8-15.2) L 04/24/21 04:00 Hct 30.1 % (35.5-45.6) L 04/24/21 04:00 MCV 90 fl (84-94) 04/24/21 04:00 MCH 31 pg (28-32) 04/24/21 04:00 MCHC 34 % (32-34) 04/24/21 04:00 RDW 16.6 % (13.2-15.2) H 04/24/21 04:00 Plt Count 393 K/mm3 (140-440) 04/24/21 04:00 Lymph % (Auto) 7.6 % (13.4-35.0) L 03/31/21 13:30 [place] % (Auto) 9.5 % (0.0-7.3) H 03/31/21 13:30 Eos % (Auto) 4.1 % (0.0-4.3) 03/31/21 13:30 Baso % (Auto) 0.5 % (0.0-1.8) 03/31/21 13:30 Lymph # (Auto) 0.6 K/mm3 (1.2-5.4) L 03/31/21 13:30 [place] # (Auto) 0.7 K/mm3 (0.0-0.8) 03/31/21 13:30 Eos # (Auto) 0.3 K/mm3 (0.0-0.4) 03/31/21 13:30 Baso # (Auto) 0.0 K/mm3 (0.0-0.1) 03/31/21 13:30 Add Manual Diff Complete 04/11/21 06:47 Total Counted 100 04/11/21 06:47 Seg Neutrophils % 78.3 % (40.0-70.0) H 03/31/21 13:30 Seg Neuts % (Manual) 76.0 % (40.0-70.0) H 04/11/21 06:47 Band Neutrophils % 2.0 % 04/11/21 06:47 Lymphocytes % (Manual) 10.0 % (13.4-35.0) L 04/11/21 06:47 Reactive Lymphs % (Man) 0 % 04/11/21 06:47 Monocytes % (Manual) 7.0 % (0.0-7.3) 04/11/21 06:47 Eosinophils % (Manual) 4.0 % (0.0-4.3) 04/11/21 06:47 Basophils % (Manual) 0 % (0.0-1.8) 04/11/21 06:47 Metamyelocytes % 1.0 % 04/11/21 06:47 Myelocytes % 0 % 04/11/21 06:47 Promyelocytes % 0 % 04/11/21 06:47 Blast Cells % 0 % 04/11/21 06:47 Nucleated RBC % Not Reportable 04/11/21 06:47 Seg Neutrophils # 5.8 K/mm3 (1.8-7.7) 03/31/21 13:30 Seg Neutrophils # Man 8.3 K/mm3 (1.8-7.7) H 04/11/21 06:47 Band Neutrophils # 0.2 K/mm3 04/11/21 06:47 Lymphocytes # (Manual) 1.1 K/mm3 (1.2-5.4) L 04/11/21 06:47 Abs React Lymphs (Man) 0.0 K/mm3 04/11/21 06:47 Monocytes # (Manual) 0.8 K/mm3 (0.0-0.8) 04/11/21 06:47 Eosinophils # (Manual) 0.4 K/mm3 (0.0-0.4) 04/11/21 06:47 Basophils # (Manual) 0.0 K/mm3 (0.0-0.1) 04/11/21 06:47 Metamyelocytes # 0.1 K/mm3 04/11/21 06:47 Myelocytes # 0.0 K/mm3 04/11/21 06:47 Promyelocytes # 0.0 K/mm3 04/11/21 06:47 Blast Cells # 0.0 K/mm3 04/11/21 06:47 WBC Morphology Not Reportable 04/11/21 06:47 Hypersegmented Neuts Not Reportable 04/11/21 06:47 Hyposegmented Neuts Not Reportable 04/11/21 06:47 Hypogranular Neuts Not Reportable 04/11/21 06:47 Smudge Cells Not Reportable 04/11/21 06:47 Toxic Granulation 1+ 04/11/21 06:47 Toxic Vacuolation Not Reportable 04/11/21 06:47 Dohle Bodies Not Reportable 04/11/21 06:47 Pel[place]-Huet Anomaly Not Reportable 04/11/21 06:47 Mely Rods Not Reportable 04/11/21 06:47 Platelet Estimate Consistent w auto 04/11/21 06:47 Clumped Platelets Not Reportable 04/11/21 06:47 Plt Clumps, EDTA Not Reportable 04/11/21 06:47 Large Platelets Not Reportable 04/11/21 06:47 Giant Platelets Not Reportable 04/11/21 06:47 Platelet Satelliting Not Reportable 04/11/21 06:47 Plt Morphology Comment Not Reportable 04/11/21 06:47 RBC Morphology Not Reportable 04/11/21 06:47 Dimorphic RBCs Not Reportable 04/11/21 06:47 Polychromasia Not Reportable 04/11/21 06:47 Hypochromasia Not Reportable 04/11/21 06:47 Poikilocytosis Not Reportable 04/11/21 06:47 Anisocytosis 1+ 04/11/21 06:47 Microcytosis Not Reportable 04/11/21 06:47 Macrocytosis Not Reportable 04/11/21 06:47 Spherocytes Not Reportable 04/11/21 06:47 Pappenheimer Bodies Not Reportable 04/11/21 06:47 Sickle Cells Not Reportable 04/11/21 06:47 Target Cells Not Reportable 04/11/21 06:47 Tear Drop Cells Not Reportable 04/11/21 06:47 Ovalocytes Not Reportable 04/11/21 06:47 Helmet Cells Not Reportable 04/11/21 06:47 [place] Bodies Not Reportable 04/11/21 06:47 [place] Rings Not Reportable 04/11/21 06:47 [place] Cells Not Reportable 04/11/21 06:47 Bite Cells Not Reportable 04/11/21 06:47 Crenated Cell Not Reportable 04/11/21 06:47 Elliptocytes Not Reportable 04/11/21 06:47 Acanthocytes (Spur) Not Reportable 04/11/21 06:47 Rouleaux Not Reportable 04/11/21 06:47 Hemoglobin C Crystals Not Reportable 04/11/21 06:47 Schistocytes Not Reportable 04/11/21 06:47 Malaria parasites Not Reportable 04/11/21 06:47 [place] Bodies Not Reportable 04/11/21 06:47 Hem Pathologist Commnt No 04/11/21 06:47 PT 13.4 Sec. (12.2-14.9) 04/11/21 18:17 INR 0.92 (0.87-1.13) 04/11/21 18:17 APTT 61.1 Sec. (24.2-36.6) H* 04/11/21 18:17 D-Dimer 1359.12 ng/mlDDU (0-234) H 03/17/21 04:40 Heparin Anti-Xa Level 1.03 U.I./ml (0.3-0.7) H 04/12/21 05:11 ABG pH 7.503 (7.320-7.450) H 04/21/21 11:37 POC ABG pCO2 43.0 mmHg (32.0-48.0) 04/21/21 11:37 ABG pCO2 50.9 mm Hg 04/18/21 11:30 POC ABG pO2 92.3 mmHg (83-108) 04/21/21 11:37 ABG pO2 108.9 mm Hg (80.0-90.0) H 04/18/21 11:30 POC ABG HCO3 33.0 04/21/21 11:37 ABG HCO3 36.2 mmol/L (20.0-26.0) H 04/18/21 11:30 ABG O2 Saturation 98.2 (0-100) 04/21/21 11:37 ABG O2 Content 12.1 (0.0-44) 04/18/21 11:30 POC ABG Base Excess 9.0 04/21/21 11:37 ABG Base Excess 11.2 mmol/L (-2.0-3.0) H 04/18/21 11:30 ABG Hemoglobin 10.8 (12.0-17.5) L 04/21/21 11:37 ABG Oxyhemoglobin 97.8 (94-98) 04/21/21 11:37 ABG Carboxyhemoglobin 1.7 % (0.0-5.0) 04/18/21 11:30 ABG Methemoglobin 0.3 (0.0-1.5) 04/21/21 11:37 ABG Sodium 134.2 mmol/L (136.0-145.0) L 03/12/21 21:54 ABG Potassium 4.9 mmol/L (3.40-4.50) H 03/12/21 21:54 ABG Chloride 99.0 mmol/L (98-107) 03/12/21 21:54 ABG Glucose 306 mg/dL (65-95) H 03/12/21 21:54 Oxyhemoglobin 95.9 % (95.0-99.0) 04/18/21 11:30 Carboxyhemoglobin 0.1 (0.5-1.5) L 04/21/21 11:37 FiO2 40 % 04/18/21 11:30 FiO2 % 35.0 04/21/21 11:37 Sodium 135 mmol/L (137-145) L 04/25/21 15:04 Potassium 4.5 mmol/L (3.6-5.0) 04/25/21 15:04 Chloride 101.5 mmol/L (98-107) 04/25/21 15:04 Carbon Dioxide 24 mmol/L (22-30) 04/25/21 15:04 Anion Gap 14 mmol/L 04/25/21 15:04 BUN 11 mg/dL (9-20) 04/25/21 15:04 Creatinine 0.4 mg/dL (0.8-1.3) L 04/25/21 15:04 Estimated GFR > 60 ml/min 04/25/21 15:04 BUN/Creatinine Ratio 28 % 04/25/21 15:04 Glucose 142 mg/dL (75-100) H 04/25/21 15:04 POC Glucose 129 mg/dL (70-105) H 04/26/21 07:51 Lactic Acid 1.90 mmol/L (0.7-2.0) 03/08/21 23:51 Calcium 9.0 mg/dL (8.4-10.2) 04/25/21 15:04 Phosphorus 3.70 mg/dL (2.5-4.5) 04/25/21 15:04 Magnesium 2.30 mg/dL (1.7-2.3) 04/25/21 15:04 Ferritin 976.4 ng/mL (30.0-300.0) H 03/15/21 04:00 Total Bilirubin 0.20 mg/dL (0.1-1.2) 03/12/21 08:03 AST 10 units/L (5-40) 03/12/21 08:03 ALT 16 units/L (7-56) 03/12/21 08:03 Alkaline Phosphatase 77 units/L (35-129) 03/12/21 08:03 Lactate Dehydrogenase 630 units/L (91-180) H 03/15/21 06:06 C-Reactive Protein 0.40 mg/dL (0.00-1.30) 03/17/21 04:40 NT-Pro-B Natriuret Pep 1053 pg/mL (0-900) H 03/08/21 20:24 Total Protein 6.0 g/dL (6.3-8.2) L 03/12/21 08:03 Albumin 2.9 g/dL (3.9-5) L 03/12/21 08:03 Albumin/Globulin Ratio 0.9 % 03/12/21 08:03 Triglycerides 305 mg/dL (2-149) H 03/22/21 07:26 Procalcitonin 0.19 ng/mL (<0.15) 04/18/21 04:20 Arterial Blood Glucose 306 mg/dL (65-95) H 03/12/21 21:54 Arterial Blood Ionized Calcium 5.0 mg/dL (4.6-5.3) 03/12/21 21:54 Urine Color Yellow (Yellow) 04/14/21 Unknown Urine Turbidity Clear (Clear) 04/14/21 Unknown Urine pH 8.0 (5.0-7.0) H 04/14/21 Unknown Ur Specific [place] 1.009 (1.003-1.030) 04/14/21 Unknown Urine Protein <15 mg/dl mg/dL (Negative) 04/14/21 Unknown Urine Glucose (UA) Neg mg/dL (Negative) 04/14/21 Unknown Urine Ketones Neg mg/dL (Negative) 04/14/21 Unknown Urine Blood Neg (Negative) 04/14/21 Unknown Urine Nitrite Neg (Negative) 04/14/21 Unknown Urine Bilirubin Neg (Negative) 04/14/21 Unknown Urine Urobilinogen 2.0 mg/dL (<2.0) 04/14/21 Unknown Ur Leukocyte Esterase Neg (Negative) 04/14/21 Unknown Urine WBC (Auto) < 1.0 /HPF (0.0-6.0) 04/14/21 Unknown Urine RBC (Auto) < 1.0 /HPF (0.0-6.0) 04/14/21 Unknown Urine Bacteria (Auto) 1+ /HPF (Negative) 03/09/21 04:10 Urine Mucus Few /HPF 03/09/21 04:10 Vancomycin Trough 16.8 ug/mL (5.0-20.0) 04/16/21 14:30 Coronavirus (PCR) Positive (Negative) A 03/09/21 08:00 Miscellaneous Test Flexitest 1 03/16/21 13:14 Good/IV: Voiding Method Indwelling Catheter Active Medications - Current Medications Current Medications: Generic Name Dose Route Start Last Admin Trade Name Freq PRN Reason Stop Dose Admin Acetaminophen 650 mg 03/09/21 01:26 04/24/21 15:07 Acetaminophen 325 Mg Tab PO 650 mg Q4H PRN Administration Pain MILD(1-3)/Fever >100.5/RAYO Albuterol 2.5 mg 03/09/21 01:26 03/18/21 21:06 Albuterol 2.5 Mg/3 Ml Nebu IH 2.5 mg Q4HRT PRN Administration Shortness Of Breath Amlodipine Besylate 10 mg 04/27/21 10:00 Amlodipine 10 Mg Tab FEEDTUBE DAILY BLANCA Apixaban 5 mg 04/26/21 22:00 Apixaban 5 Mg Tab FEEDTUBE Q12HR [facility] Protocol Arformoterol Tartrate 15 mcg 03/11/21 20:00 04/26/21 08:23 Arformoterol 15 Mcg/2 Ml Nebu IH 15 mcg Q12HRT BLANCA Administration Dextrose 0 ml 03/20/21 10:52 Dextrose 10% *Hypoglycemia IV PRN PRN Hypoglycemia Docusate Sodium 100 mg 04/26/21 22:00 Docusate Sodium 100 Mg/10 Ml Oral Liqd FEEDTUBE BID BLANCA Doxazosin Mesylate 1 mg 04/26/21 10:00 Doxazosin 1 Mg Tab FEEDTUBE BID BLANCA Famotidine 20 mg 03/12/21 22:00 04/26/21 09:32 Famotidine 20 Mg Tab FEEDTUBE 20 mg BID BLANCA Administration Glycopyrrolate 2 mg 04/22/21 23:42 04/26/21 09:32 Glycopyrrolate 2 Mg Tab PO 2 mg TID BLANCA Administration Hydralazine HCl 50 mg 04/26/21 14:00 Hydralazine 25 Mg Tab FEEDTUBE Q8HR [facility] Cefazolin Sodium 3 gm/ Sodium 100 mls @ 100 mls/30 min 04/20/21 14:00 04/26/21 06:02 Chloride IV 05/04/21 06:29 100 mls/30 min Q8HR [facility]AN[facility] Administration Protocol Insulin Glargine 18 units 04/07/21 22:00 04/25/21 23:40 Insulin Glargine 100 Units/Ml SUB-Q 18 units QHS BLANCA Administration Insulin Human Lispro 0 unit 03/11/21 18:00 04/26/21 06:04 Insulin Lispro 100 Unit/Ml SUB-Q Not Given Q6HR [facility] Protocol Metoprolol Tartrate 12.5 mg 04/26/21 22:00 Metoprolol Tartrate 25 Mg Tab FEEDTUBE BID BLANCA Ondansetron HCl 4 mg 03/09/21 01:26 04/13/21 16:17 Ondansetron 4 Mg/2 Ml Inj IV 4 mg Q8H PRN Administration Nausea And Vomiting Oxycodone HCl 5 mg 04/26/21 10:00 Oxycodone 5 Mg Tab FEEDTUBE Q6HR PRN Pain, Moderate (4-6) Phenyleph/Shark Oil/Min Oil/Petrol 1 applic 03/22/21 17:35 04/06/21 04:04 Pe/Mo/Pet,Wh 10 Applic/28 Gm Tube [place] 1 applic Q6HR PRN Administration Hemorrhoids Scopolamine 1 each 04/19/21 13:00 04/25/21 09:53 Scopolamine Transdermal Patch 72 Hr TD 1 each Q3D BLANCA Administration Sodium Chloride 10 ml 03/09/21 10:00 04/26/21 09:33 Sodium Chloride 0.9% 10 Ml Flush Syringe IV 10 ml BID BLANCA Administration Sodium Chloride 10 ml 03/09/21 01:26 04/10/21 21:07 Sodium Chloride 0.9% 10 Ml Flush Syringe IV 10 ml PRN PRN Administration LINE FLUSH Nutrition/Malnutrition Assess - Dietary Evaluation Nutrition/Malnutrition Findings: Nutrition Notes Start: 03/09/21 08:49 Freq: Status: Active Protocol: Document 04/21/21 14:27 BRIAN (Rec: 04/21/21 14:29 BRIAN [id number]) Nutrition Notes Initial or Follow up Reassessment Current Diagnosis Diabetes,Sepsis,Hypertension, Respiratory Failure Other Pertinent Diagnosis COVID-19, Bilateral Pneumonia. Current Diet TF-Glucerna 1.2 at 70 ml/hr Labs/Tests reviewed Pertinent Medications Lasix Height 5 ft 11 in Weight 122.4 kg [place] Body Weight (kg) 78.18 BMI 37.6 Weight Status Obese Subjective/Other Information Pt tolerating T-piece trials for past two days. Per RN, will move to IMCU. Pt continues to tolerate TF at goal rate. Percent of energy/protein needs met: 82% energy 78% pro Burn Absent Trauma Absent #1 Nutrition Diagnosis Inadequate oral intake Diagnosis Progress(for reassessment Continues documentation) Is patient on ventilator? No Is Patient Ambulatory and/or Out of Bed No REE-([facility]-confined to bed) [phone] Calculation Used for Recommendations 70-80% energy needs Additional Notes Energy needs: 0856-6421 kcal/ day Pro needs 1.3g/kg adjBW: 130g/ day Fluid needs 1ml/kcal Nutrition Intervention Nutrition Support: Continue Glucerna 1.2 at 70ml/ hr with 110ml water flush q4h. Kcal 2,016 Protein (gm) 101 Carbohydrates (gm) 192 Fat (gm) 101 Fluid (mL) 1,352 Fiber (gm) 27 Goal #1 TF tolerance Goal #2 TF to meet at least 75% energy and pro needs Follow-Up By: 04/28/21 Additional Comments F/U: stable TF, wt, resp status <ARABELLA CASTILLO - Last Filed: 04/27/21 07:02> Assessment and Plan Assessment and plan: I saw and evaluated the patient. I agree with the findings and the plan of care as documented in the Nurse Practitioner's~note, with the following corrections and additions. Hospitalist Physical - Constitutional Vitals: Temp Pulse Resp BP Pulse Ox 99.9 F H 90 26 H 133/82 100 04/27/21 04:00 04/27/21 06:00 04/27/21 06:00 04/27/21 06:00 04/27/21 06:00 Results - Labs CBC & Chem 7: 04/24/21 04:00 04/25/21 15:04 Labs: Laboratory Last Values WBC 12.9 K/mm3 (4.5-11.0) H 04/24/21 04:00 RBC 3.33 M/mm3 (3.65-5.03) L 04/24/21 04:00 Hgb 10.2 gm/dl (11.8-15.2) L 04/24/21 04:00 Hct 30.1 % (35.5-45.6) L 04/24/21 04:00 MCV 90 fl (84-94) 04/24/21 04:00 MCH 31 pg (28-32) 04/24/21 04:00 MCHC 34 % (32-34) 04/24/21 04:00 RDW 16.6 % (13.2-15.2) H 04/24/21 04:00 Plt Count 393 K/mm3 (140-440) 04/24/21 04:00 Lymph % (Auto) 7.6 % (13.4-35.0) L 02/22 13:30 [place] % (Auto) 9.5 % (0.0-7.3) H 03/31/21 13:30 Eos % (Auto) 4.1 % (0.0-4.3) 03/31/21 13:30 Baso % (Auto) 0.5 % (0.0-1.8) 03/31/21 13:30 Lymph # (Auto) 0.6 K/mm3 (1.2-5.4) L 03/31/21 13:30 [place] # (Auto) 0.7 K/mm3 (0.0-0.8) 03/31/21 13:30 Eos # (Auto) 0.3 K/mm3 (0.0-0.4) 03/31/21 13:30 Baso # (Auto) 0.0 K/mm3 (0.0-0.1) 03/31/21 13:30 Add Manual Diff Complete 04/11/21 06:47 Total Counted 100 04/11/21 06:47 Seg Neutrophils % 78.3 % (40.0-70.0) H 03/31/21 13:30 Seg Neuts % (Manual) 76.0 % (40.0-70.0) H 04/11/21 06:47 Band Neutrophils % 2.0 % 04/11/21 06:47 Lymphocytes % (Manual) 10.0 % (13.4-35.0) L 04/11/21 06:47 Reactive Lymphs % (Man) 0 % 04/11/21 06:47 Monocytes % (Manual) 7.0 % (0.0-7.3) 04/11/21 06:47 Eosinophils % (Manual) 4.0 % (0.0-4.3) 04/11/21 06:47 Basophils % (Manual) 0 % (0.0-1.8) 04/11/21 06:47 Metamyelocytes % 1.0 % 04/11/21 06:47 Myelocytes % 0 % 04/11/21 06:47 Promyelocytes % 0 % 04/11/21 06:47 Blast Cells % 0 % 04/11/21 06:47 Nucleated RBC % Not Reportable 04/11/21 06:47 Seg Neutrophils # 5.8 K/mm3 (1.8-7.7) 03/31/21 13:30 Seg Neutrophils # Man 8.3 K/mm3 (1.8-7.7) H 04/11/21 06:47 Band Neutrophils # 0.2 K/mm3 04/11/21 06:47 Lymphocytes # (Manual) 1.1 K/mm3 (1.2-5.4) L 04/11/21 06:47 Abs React Lymphs (Man) 0.0 K/mm3 04/11/21 06:47 Monocytes # (Manual) 0.8 K/mm3 (0.0-0.8) 04/11/21 06:47 Eosinophils # (Manual) 0.4 K/mm3 (0.0-0.4) 04/11/21 06:47 Basophils # (Manual) 0.0 K/mm3 (0.0-0.1) 04/11/21 06:47 Metamyelocytes # 0.1 K/mm3 04/11/21 06:47 Myelocytes # 0.0 K/mm3 04/11/21 06:47 Promyelocytes # 0.0 K/mm3 04/11/21 06:47 Blast Cells # 0.0 K/mm3 04/11/21 06:47 WBC Morphology Not Reportable 04/11/21 06:47 Hypersegmented Neuts Not Reportable 04/11/21 06:47 Hyposegmented Neuts Not Reportable 04/11/21 06:47 Hypogranular Neuts Not Reportable 04/11/21 06:47 Smudge Cells Not Reportable 04/11/21 06:47 Toxic Granulation 1+ 04/11/21 06:47 Toxic Vacuolation Not Reportable 04/11/21 06:47 Dohle Bodies Not Reportable 04/11/21 06:47 Pelger-Huet Anomaly Not Reportable 04/11/21 06:47 Mely Rods Not Reportable 04/11/21 06:47 Platelet Estimate Consistent w auto 04/11/21 06:47 Clumped Platelets Not Reportable 04/11/21 06:47 Plt Clumps, EDTA Not Reportable 04/11/21 06:47 Large Platelets Not Reportable 04/11/21 06:47 Giant Platelets Not Reportable 04/11/21 06:47 Platelet Satelliting Not Reportable 04/11/21 06:47 Plt Morphology Comment Not Reportable 04/11/21 06:47 RBC Morphology Not Reportable 04/11/21 06:47 Dimorphic RBCs Not Reportable 04/11/21 06:47 Polychromasia Not Reportable 04/11/21 06:47 Hypochromasia Not Reportable 04/11/21 06:47 Poikilocytosis Not Reportable 04/11/21 06:47 Anisocytosis 1+ 04/11/21 06:47 Microcytosis Not Reportable 04/11/21 06:47 Macrocytosis Not Reportable 04/11/21 06:47 Spherocytes Not Reportable 04/11/21 06:47 Pappenheimer Bodies Not Reportable 04/11/21 06:47 Sickle Cells Not Reportable 04/11/21 06:47 Target Cells Not Reportable 04/11/21 06:47 Tear Drop Cells Not Reportable 04/11/21 06:47 Ovalocytes Not Reportable 04/11/21 06:47 Helmet Cells Not Reportable 04/11/21 06:47 [place] Bodies Not Reportable 04/11/21 06:47 [place] Rings Not Reportable 04/11/21 06:47 [place] Cells Not Reportable 04/11/21 06:47 Bite Cells Not Reportable 04/11/21 06:47 Crenated Cell Not Reportable 04/11/21 06:47 Elliptocytes Not Reportable 04/11/21 06:47 Acanthocytes (Spur) Not Reportable 04/11/21 06:47 Rouleaux Not Reportable 04/11/21 06:47 Hemoglobin C Crystals Not Reportable 04/11/21 06:47 Schistocytes Not Reportable 04/11/21 06:47 Malaria parasites Not Reportable 04/11/21 06:47 [place] Bodies Not Reportable 04/11/21 06:47 Hem Pathologist Commnt No 04/11/21 06:47 PT 13.4 Sec. (12.2-14.9) 04/11/21 18:17 INR 0.92 (0.87-1.13) 04/11/21 18:17 APTT 61.1 Sec. (24.2-36.6) H* 04/11/21 18:17 D-Dimer 1359.12 ng/mlDDU (0-234) H 03/17/21 04:40 Heparin Anti-Xa Level 1.03 U.I./ml (0.3-0.7) H 04/12/21 05:11 ABG pH 7.503 (7.320-7.450) H 04/21/21 11:37 POC ABG pCO2 43.0 mmHg (32.0-48.0) 04/21/21 11:37 ABG pCO2 50.9 mm Hg 04/18/21 11:30 POC ABG pO2 92.3 mmHg (83-108) 04/21/21 11:37 ABG pO2 108.9 mm Hg (80.0-90.0) H 04/18/21 11:30 POC ABG HCO3 33.0 04/21/21 11:37 ABG HCO3 36.2 mmol/L (20.0-26.0) H 04/18/21 11:30 ABG O2 Saturation 98.2 (0-100) 04/21/21 11:37 ABG O2 Content 12.1 (0.0-44) 04/18/21 11:30 POC ABG Base Excess 9.0 04/21/21 11:37 ABG Base Excess 11.2 mmol/L (-2.0-3.0) H 04/18/21 11:30 ABG Hemoglobin 10.8 (12.0-17.5) L 04/21/21 11:37 ABG Oxyhemoglobin 97.8 (94-98) 04/21/21 11:37 ABG Carboxyhemoglobin 1.7 % (0.0-5.0) 04/18/21 11:30 ABG Methemoglobin 0.3 (0.0-1.5) 04/21/21 11:37 ABG Sodium 134.2 mmol/L (136.0-145.0) L 03/12/21 21:54 ABG Potassium 4.9 mmol/L (3.40-4.50) H 03/12/21 21:54 ABG Chloride 99.0 mmol/L (98-107) 03/12/21 21:54 ABG Glucose 306 mg/dL (65-95) H 03/12/21 21:54 Oxyhemoglobin 95.9 % (95.0-99.0) 04/18/21 11:30 Carboxyhemoglobin 0.1 (0.5-1.5) L 04/21/21 11:37 FiO2 40 % 04/18/21 11:30 FiO2 % 35.0 04/21/21 11:37 Sodium 135 mmol/L (137-145) L 04/25/21 15:04 Potassium 4.5 mmol/L (3.6-5.0) 04/25/21 15:04 Chloride 101.5 mmol/L (98-107) 04/25/21 15:04 Carbon Dioxide 24 mmol/L (22-30) 04/25/21 15:04 Anion Gap 14 mmol/L 04/25/21 15:04 BUN 11 mg/dL (9-20) 04/25/21 15:04 Creatinine 0.4 mg/dL (0.8-1.3) L 04/25/21 15:04 Estimated GFR > 60 ml/min 04/25/21 15:04 BUN/Creatinine Ratio 28 % 04/25/21 15:04 Glucose 142 mg/dL (75-100) H 04/25/21 15:04 POC Glucose 112 mg/dL (70-105) H 04/27/21 06:13 Lactic Acid 1.90 mmol/L (0.7-2.0) 03/08/21 23:51 Calcium 9.0 mg/dL (8.4-10.2) 04/25/21 15:04 Phosphorus 3.70 mg/dL (2.5-4.5) 04/25/21 15:04 Magnesium 2.30 mg/dL (1.7-2.3) 04/25/21 15:04 Ferritin 976.4 ng/mL (30.0-300.0) H 03/15/21 04:00 Total Bilirubin 0.20 mg/dL (0.1-1.2) 03/12/21 08:03 AST 10 units/L (5-40) 03/12/21 08:03 ALT 16 units/L (7-56) 03/12/21 08:03 Alkaline Phosphatase 77 units/L (35-129) 03/12/21 08:03 Lactate Dehydrogenase 630 units/L (91-180) H 03/15/21 06:06 C-Reactive Protein 0.40 mg/dL (0.00-1.30) 03/17/21 04:40 NT-Pro-B Natriuret Pep 1053 pg/mL (0-900) H 03/08/21 20:24 Total Protein 6.0 g/dL (6.3-8.2) L 03/12/21 08:03 Albumin 2.9 g/dL (3.9-5) L 03/12/21 08:03 Albumin/Globulin Ratio 0.9 % 03/12/21 08:03 Triglycerides 305 mg/dL (2-149) H 03/22/21 07:26 Procalcitonin 0.19 ng/mL (<0.15) 04/18/21 04:20 Arterial Blood Glucose 306 mg/dL (65-95) H 03/12/21 21:54 Arterial Blood Ionized Calcium 5.0 mg/dL (4.6-5.3) 03/12/21 21:54 Urine Color Yellow (Yellow) 04/14/21 Unknown Urine Turbidity Clear (Clear) 04/14/21 Unknown Urine pH 8.0 (5.0-7.0) H 04/14/21 Unknown Ur Specific [place] 1.009 (1.003-1.030) 04/14/21 Unknown Urine Protein <15 mg/dl mg/dL (Negative) 04/14/21 Unknown Urine Glucose (UA) Neg mg/dL (Negative) 04/14/21 Unknown Urine Ketones Neg mg/dL (Negative) 04/14/21 Unknown Urine Blood Neg (Negative) 04/14/21 Unknown Urine Nitrite Neg (Negative) 04/14/21 Unknown Urine Bilirubin Neg (Negative) 04/14/21 Unknown Urine Urobilinogen 2.0 mg/dL (<2.0) 04/14/21 Unknown Ur Leukocyte Esterase Neg (Negative) 04/14/21 Unknown Urine WBC (Auto) < 1.0 /HPF (0.0-6.0) 04/14/21 Unknown Urine RBC (Auto) < 1.0 /HPF (0.0-6.0) 04/14/21 Unknown Urine Bacteria (Auto) 1+ /HPF (Negative) 03/09/21 04:10 Urine Mucus Few /HPF 03/09/21 04:10 Vancomycin Trough 16.8 ug/mL (5.0-20.0) 04/16/21 14:30 Coronavirus (PCR) Positive (Negative) A 03/09/21 08:00 Miscellaneous Test Flexitest 1 01/20/22 13:14 Good/IV: Voiding Method Indwelling Catheter Active Medications - Current Medications Current Medications: Generic Name Dose Route Start Last Admin Trade Name Freq PRN Reason Stop Dose Admin Acetaminophen 650 mg 03/09/21 01:26 04/24/21 15:07 Acetaminophen 325 Mg Tab PO 650 mg Q4H PRN Administration Pain MILD(1-3)/Fever >100.5/RAYO Albuterol 2.5 mg 03/09/21 01:26 03/18/21 21:06 Albuterol 2.5 Mg/3 Ml Nebu IH 2.5 mg Q4HRT PRN Administration Shortness Of Breath Amlodipine Besylate 10 mg 04/27/21 10:00 Amlodipine 10 Mg Tab FEEDTUBE DAILY BLANCA Apixaban 5 mg 04/26/21 22:00 04/26/21 21:11 Apixaban 5 Mg Tab FEEDTUBE 5 mg Q12HR BLANCA Administration Protocol Arformoterol Tartrate 15 mcg 03/11/21 20:00 04/26/21 21:55 Arformoterol 15 Mcg/2 Ml Nebu IH 15 mcg Q12HRT BLANCA Administration Dextrose 0 ml 03/20/21 10:52 Dextrose 10% *Hypoglycemia IV PRN PRN Hypoglycemia Docusate Sodium 100 mg 04/26/21 22:00 04/26/21 21:12 Docusate Sodium 100 Mg/10 Ml Oral Liqd FEEDTUBE 100 mg BID BLANCA Administration Doxazosin Mesylate 1 mg 04/26/21 10:00 04/26/21 21:10 Doxazosin 1 Mg Tab FEEDTUBE 1 mg BID BLANCA Administration Famotidine 20 mg 03/12/21 22:00 04/26/21 21:10 Famotidine 20 Mg Tab FEEDTUBE 20 mg BID BLANCA Administration Glycopyrrolate 2 mg 04/22/21 23:42 04/26/21 20:18 Glycopyrrolate 2 Mg Tab PO 2 mg TID BLANCA Administration Hydralazine HCl 50 mg 04/26/21 14:00 04/27/21 05:44 Hydralazine 25 Mg Tab FEEDTUBE 50 mg Q8HR BLANCA Administration Cefazolin Sodium 3 gm/ Sodium 100 mls @ 100 mls/30 min 04/20/21 14:00 04/27/21 05:44 Chloride IV 05/04/21 06:29 100 mls/30 min Q8HR BLANCA Administration Protocol Insulin Glargine 18 units 04/07/21 22:00 04/26/21 21:13 Insulin Glargine 100 Units/Ml SUB-Q 18 units QHS BLANCA Administration Insulin Human Lispro 0 unit 03/11/21 18:00 04/27/21 06:16 Insulin Lispro 100 Unit/Ml SUB-Q Not Given Q6HR [facility] Protocol Metoprolol Tartrate 12.5 mg 04/26/21 22:00 04/26/21 21:11 Metoprolol Tartrate 25 Mg Tab FEEDTUBE 12.5 mg BID BLANCA Administration Ondansetron HCl 4 mg 03/09/21 01:26 04/13/21 16:17 Ondansetron 4 Mg/2 Ml Inj IV 4 mg Q8H PRN Administration Nausea And Vomiting Oxycodone HCl 5 mg 04/26/21 10:00 04/26/21 21:11 Oxycodone 5 Mg Tab FEEDTUBE 5 mg Q6HR PRN Administration Pain, Moderate (4-6) Phenyleph/Shark Oil/Min Oil/Petrol 1 applic 03/22/21 17:35 04/06/21 04:04 Pe/Mo/Pet,Wh 10 / Gm Tube [place] 1 applic Q6HR PRN Administration Hemorrhoids Scopolamine 1 each 04/19/21 13:00 04/25/21 09:53 Scopolamine Transdermal Patch 72 Hr TD 1 each Q3D BLANCA Administration Sodium Chloride 10 ml 03/09/21 10:00 04/26/21 21:15 Sodium Chloride 0.9% 10 Ml Flush Syringe IV 10 ml BID BLANCA Administration Sodium Chloride 10 ml 03/09/21 01:26 04/10/21 21:07 Sodium Chloride 0.9% 10 Ml Flush Syringe IV 10 ml PRN PRN Administration LINE FLUSH Nutrition/Malnutrition Assess - Dietary Evaluation Nutrition/Malnutrition Findings: Nutrition Notes Start: 03/09/21 08:49 Freq: Status: Active Protocol: Document 04/21/21 14:27 [facility] (Rec: 04/21/21 14:29 [facility] [id number]) Nutrition Notes Initial or Follow up Reassessment Current Diagnosis Diabetes,Sepsis,Hypertension, Respiratory Failure Other Pertinent Diagnosis COVID-19, Bilateral Pneumonia. Current Diet TF-Glucerna 1.2 at 70 ml/hr Labs/Tests reviewed Pertinent Medications Lasix Height 5 ft 11 in Weight 122.4 kg [place] Body Weight (kg) 78.18 BMI 37.6 Weight Status Obese Subjective/Other Information Pt tolerating T-piece trials for past two days. Per RN, will move to [facility]. Pt continues to tolerate TF at goal rate. Percent of energy/protein needs met: 82% energy 78% pro Burn Absent Trauma Absent #1 Nutrition Diagnosis Inadequate oral intake Diagnosis Progress(for reassessment Continues documentation) Is patient on ventilator? No Is Patient Ambulatory and/or Out of Bed No REE-([place]-confined to bed) [phone] Calculation Used for Recommendations 70-80% energy needs Additional Notes Energy needs: 6406-6710 kcal/ day Pro needs 1.3g/kg adjBW: 130g/ day Fluid needs 1ml/kcal Nutrition Intervention Nutrition Support: Continue Glucerna 1.2 at 70ml/ hr with 110ml water flush q4h. Kcal 2,016 Protein (gm) 101 Carbohydrates (gm) 192 Fat (gm) 101 Fluid (mL) 1,352 Fiber (gm) 27 Goal #1 TF tolerance Goal #2 TF to meet at least 75% energy and pro needs Follow-Up By: 04/28/21 Additional Comments F/U: stable TF, wt, resp status
[2021-04-26] MEDS: DOXAZOSIN 1 MG TAB FEEDTUBE SCH ×2 (11:41→21:10)
--- NOTE | 2021-04-26 14:29 | Progress Note ---
Assessment and Plan Cultures: SARS CoV2 PCR: positive 03/08/2021 blood culture: no growth 03/10/2021 sputum culture: Usual respiratory marlyn 03/16/2021 blood culture: no growth 03/18/2021 sputum culture: Stenotrophomonas 03/31/2021 Blood culture: no growth 03/31/2021 tracheal aspirate: usual resp marlyn 04/14/2021 sputum culture: MSSA 04/14/2021 blood culture: No growth 04/14/2021 urine culture: No growth 04/15/2021 right middle lobe respiratory culture: MSSA A/P: 61-year-old male with diabetes, hypertension admitted to the hospital with complaints of shortness of breath and feeling weak for the last 1 week: #Sepsis secondary to bilateral pneumonia: secondary to COVID-19. Completed remdesivir, s/p Actemra, steroids. Completed abx for bacterial pneumonia, Stenotrophomonas. #MSSA pneumonia #Acute hypoxic respiratory failure: s/p trach and PEG. #DM #HTN #Acute DVT in RUE Recs: -continue higher dose cefazolin 3 g q8 hrs, may need a long course of abx (MSSA can cause severe pneumonia including necrotizing pneumonia). PLanned 14 days -monitor fever and WBC G. Joslyn Goins MD [facility] O: [phone] F: [phone] Subjective Date of service: 04/26/21 Principal diagnosis: COVID-19 infection; DM II; Bilateral pneumonia; Obesity; HTN Interval history: Afebrile, white count 12.9. Respiratory cultures with ongoing staph aureus. Objective - Exam Narrative Exam: Physical exam deferred to reduce risk of transmission of COVID-19. Please refer to primary team's note. - Constitutional Vitals: Vital Signs Temp Pulse Resp BP Pulse Ox 98.1 F 96 H 31 H 117/71 98 04/26/21 12:00 04/26/21 13:00 04/26/21 13:00 04/26/21 13:00 04/26/21 13:00 Temperature -Last 24 Hours Temperature 98.1 F Temperature 97.7 F Temperature 98.6 F Temperature 98.6 F Temperature 98.8 F Temperature 98.5 F - Labs CBC & Chem 7: 04/24/21 04:00 04/25/21 15:04 Labs: Abnormal lab results 04/25/21 04/25/21 04/26/21 Range/Units 15:04 23:34 05:36 Sodium 135 L (137-145) mmol/L Creatinine 0.4 L (0.8-1.3) mg/dL Glucose 142 H (75-100) mg/dL POC Glucose 127 H 135 H (70-105) mg/dL 04/26/21 04/26/21 Range/Units 07:51 11:24 Sodium (137-145) mmol/L Creatinine (0.8-1.3) mg/dL Glucose (75-100) mg/dL POC Glucose 129 H 129 H (70-105) mg/dL
[2021-04-26] MEDS: hydrALAZINE 25 MG TAB FEEDTUBE SCH ×2 (17:56→21:11)
[2021-04-26] MEDS: METOPROLOL TARTRATE 25 MG TAB FEEDTUBE SCH (21:11)
[2021-04-26] MEDS: APIXABAN 5 MG TAB FEEDTUBE SCH (21:11)
[2021-04-26] MEDS: oxyCODONE 5 MG TAB FEEDTUBE PRN (21:11)
[2021-04-26] MEDS: DOCUSATE SODIUM 100 MG/10 ML ORAL LIQD FEEDTUBE SCH (21:12)
[2021-04-26] MEDS: INSULIN GLARGINE 100 UNITS/ML SUB-Q SCH (21:13)
[2021-04-27] MEDS: hydrALAZINE 25 MG TAB FEEDTUBE SCH ×3 (05:44→22:10)
[2021-04-27] MEDS: INSULIN LISPRO 100 UNIT/ML SUB-Q SCH ×4 (06:16→22:20)
--- NOTE | 2021-04-27 07:11 | Progress Note ---
Assessment and Plan Assessment and plan: This is a 61-year-old male with past medical history of HTN and DM admitted for sepsis and acute hypoxic respiratory failure 2/2 COVID pneumonia s/p Trach and PEG on 2/ Hospital Course to Date: 03/09: The patient was seen and evaluated today, and he was found to be hemodynamically stable. The patient is currently on BiPAP for possible COVID-19 pneumonia. He was started on Lovenox 1mg/kg for DVT ppx in the setting of d- dimer > 10,000. Infectious Disease was consulted. The patient is pending a TTE. 03/10: No acute events overnight, patient was intubated in the afternoon transferred to ICU 03/11: Patient started on Lantus, free water flushes increased, propofol drip res umed and oral antihypertensive added. 03/12: lantus increased, k at 5, will monitor. I updated his family and his stated that he is not vaccinated. He does have HTN and she will call the RN to update home medications. She did say he takes bystolic and amlopine. She inquired about ventilator and lab work. She had no further questions. 03/13: KVNG overnight. Patient remains hyperglycemic, basal insulin adjusted and increased to Q12hrs. Patient is overall net positive since admit X1 dose of IV lasix, repeat BMP this afternoon. 03/14: Failed SAT this am due to increase agitation, tachycardia and hypertension. Remains on propofol and fentanyl gtt. Hyperkalemia treated with PO kayaxalate. Patient responded to IV lasix yesterday additional dose again today for a net negative balance. Repeat BMP this afternoon. Insulin adjusted for hyperglycemia. 03/15: Remains encephalopathic, not following commansd. Orders placed for CT head/Brain and Neuro consulted. Rectal bleeding subsided, most likely due to hemorrhoids. H&H is stable will continue to monitor. Kayaxexalate for high K, repeat labs 4 to 6hrs post treatment. 03/16: Still agiated this am, CT head with no acute Abn. CXR and ABG noted- evolving pna and worsening hypoxia, now with low grade fevers. Sputum culture ordered, IV Abx added, ID on cosult. 03/17: This am ABG noted, hypoxia improved. Continue to wean FiO2 as tolerated. Still with low grade fevers, on IV Abx per ID. Still with periods of confusion despite sedation, seroquel increased. F/u CXR in the am 03/18: still very agitated especially when off sedation, with hypertension and tachycardia. Continue sedation for RASS -2, PRN antihypertensive for SPB greater than 160. This febrile this am, continue current IV abx per ID 03/19: Patient afebrile overnight, continue IV Abx per ID. ABG also improved this am, continue to wean FIO2 as tolerated. PRN antihypertensive for hypertension. 03/20: Hyperkalemia treated with Kayexalate, Good discontinued, vancomycin and cefepime stopped started Bactrim by ID. Steroid taper started. 03/21: BB started for hypertension, Seroquel increased for agitation and Librium started no acute events reported overnight. [facility] made vent changes 03/22: Adjustment to anxiolytics, respiratory rate on ventilator per [facility]. Patient noted to have bleeding hemorrhoids with clot, requested RN to remove bowel management system and will order Preparation H. 03/23: Given no confirmed DVT or PE (only superficial thrombus noted on Dopplers) therapeutic Lovenox changed to prophylactic Lovenox. Started on doxazosin to help with retention. Consulted surgery for tracheostomy and propofol discontinued. 03/24: Surgery consult completed, patient changed to prophylaxis anticoagulation, started on doxazosin yesterday with plans to remove Good catheter in 48 hours. Patient with slight hypokalemia today and given Kayexalate. No acute events reported overnight. 03/25: No acute events reported overnight. Patient remains on fentanyl drip and on CPAP trial this morning. 03/26: no acute events reported overnight. placed on CPAP this AM, remains on fent/librium. scheduled for trach/peg this week. 03/27: Hypoglycemic this am, will decreased lantus to Qhs. Plan for possible Trach and Peg by Gen Surg this am. Case management to arrange possible LTAC placement 03/28: KVNG overnight. Tolerating PST this am. Plan for trach and PEG tomorrow by Gen. Surgery, NPO after midnight. 03/29: No significant changes overnight. Plan for trach and Peg today. Case management to arrange possible LTAC placement 03/30. S/p Trach and PEG, no complications noted. High residual yesterday despite NPO status, reglan added X2 days. Per RN no residual this am, patient is tolerating TF. Continue to advance TF as tolerated. Norvasc added for hypertension. Pitting edema also appreciated, some diuretic might be beneficial, will d/w CCM. Continue daily PST as tolerated. 03/31: Patient remains on the vent still on fentanyl gtt with periods of agitation. PRN analgesia added, plan to start weaning off fentanyl gtt. Febrile this am, completed IV abx course. Will panculture for now, ID is also following. 04/01: Still febrile overnight, cultures result pending, continue IV ABx per ID. Failed PST this am. Continue daily PST and vent wean per [facility]. Case management to arrange possible placement. 04/02: KVNG overnight. Fevers improved overnight, continue to follow cultures data, IV ABx per ID. Continue daily PST and wean vent as per [facility].\ 04/03: Given low procalcitonin, unchanged CXR and cultures with no growth cefepime was discontinued by ID. LTAC evaluation ongoing. No acute events reported overnight. 04/04: IV Lasix stopped today, Seroquel taper started, fentanyl drip on hold and steroids stopped. Pressure support trial again today. 04/05: Patient had to be restarted on fentanyl drip therefore Seroquel was increased back to 250 twice daily and he was started on scheduled narcotics and efforts to wean fentanyl drip. Doxazosin was increased to twice daily as patient still had retention issues on doxazosin once a day. Patient was denied LTAC placement. CPAP trial today. 04/06: Right upper extremity ultrasound obtained due to edema which showed DVT. Patient started on heparin drip. Overnight patient had hypoxia, tachypnea, tachycardia, hypotension and FiO2 was increased to 100%. RT titrating as tolerated. Plan was to start T-piece trials today. Patient has been denied LTAC placement. 04/07: BLE dopplar, continue lasix per [facility], CXR in AM. Increase in fio2 overnight d/t desaturation. Wean FiO2 as tolerated. 04/08: Patient remains on 65% FiO2, s/p Lasix for 3 doses, hyperkalemia noted today and medically treated. [facility] plans to consult heme/onc once FiO2 decreased. Remains on heparin gtt 04/09: No acute events reported overnight, possible heme-onc consult on Saturday or Saturday regarding upper extremity DVT, wean FiO2 as tolerated. Repeat CT head on Monday 04/10: Patient mentation is unchanged, repeat CT head today. Remains on heparin gtt per protocol. Continue daily PST as tolerated. 04/11: Increased work of breathing and high RR overnight, vent FiO2 increased to 55%. Resolved this am, patient is tolerating PST, no acute distress noted. Wean Fio2 as tolerated for SPO2 above 92%, Follow up CXR and ABG in the am. Antihypertensive regimen adjusted for better BP control. 04/12: Patient with coarse lungs and increased secretion today. This am CXR noted with worsen infiltrate, 40 of Lasix given, repeat CXR in the am. Patient remains afebrile, complete IV Abx course, VSS. Transitioned to PO Eliquis overnight, continue to keep patient net negative for better lung compliance. Continue daily PST as tolerated. 04/13: Patient is off sedation this am. Remains unresponsive. Librium D/C and Seroquel was adjusted to Qhs, PRN analgesia for pain management. Patient responded well to IV lasix, this am CXR with some improvement, additional IV lasix ordered again today. high CO2 also noted from this am, ABG ordered. Patient is tolerating PST this am, SPO2 remains above 95%. Continue daily PST plan to get patient off the vent for possible SNF placemement 04/14: Patient mentation is unchanged despite reducing sedative agents. Will hold all scheduled sedatives agents for now, PRN analgesics for pain management and vent synchrony. Patient spike a temp this am, orders placed for cultures, IV abx per ID. Additional lasix today, F/u CXR in the am. Patient is tolerating PST this am. 04/15: Remains febrile overnight. Culture data pending, back on IV Abx per ID. Gentle fluid management with IV lasix. Keep patient at a net negative balance. Continue daily PST as tolerated. 04/16: Open eyes spontaneously this am, but still not following commands. MRI brain ordered. Continue to avoid any sedative agents. Patient continue to respon d very well to IV diuretic, continue gentle diurese X3days as tolerated. Continue daily PST as tolerated. Plan is get patient off the vent for possible SNF placement. Patient remains febrile this am, now cefepine and Vanc, continue IV abx per ID. 04/17: We will repeat procalcitonin per ID, MRI brain pending, SNF placement pending, [facility] plans to start T-piece trials in the morning and will discontinue Good catheter again. 04/18: Overnight patient to be straight cath x2 but did eventually have spo ntaneous urine output today and Good catheter was not replaced, patient had MRI brain today and was started on T-piece trials. He received Versed for sedation for MRI brain. 04/19: Good catheter was not replaced overnight patient is still voiding, placed on T-piece today, scopolamine and Robinul restarted. 04/20: Patient T-piece trial again today, will decrease bowel regimen in a.m. for entering T-piece for 24 hours obtain gas in the a.m. Cefazolin increased 04/21: Patient remained on trach collar throughout the day, will be transitioned to IMCU. Good catheter was replaced overnight due to retention. 04/22: Patient continues to tolerate Trach collar, still with volume overload will continue with diuresis, monitor electrolytes, aggressive pulmonary toliet, aspiration precautions 04/23: Patient remains on trach collar which he is tolerating. Remains on cefazolin, Cardura and Lasix. 04/24: KVNG overnight. Patient is AAO, following commands, and tolerating T-piece. Continue PT 5X/week. Pending SNF vs Subacute rehab placement, case management to arrange. 04/25: KVNG overnight. Remains stable, tolerating T-piece. Plan for possible PSMV trial with speech once available. 04/26: Patient remains stable on T-piece. Awaiting possible SNF placement, case management to arrange. 04/27: Patient remains clinically stable continues on T-piece awaiting SNF placement. Mild leukocytosis but otherwise improving no fever noted at this time. Continue diuresis as there is improvement noted. He is able to vocalize words. Will defer to pulmonary about capping trials. Assessment and Plan #Acute Hypoxic Respiratory Failure #COVID Pneumonia - Intubated on 03/10 due to worsen hypoxia on BIPAP - 2/2 s/p Tracheostomy - T-piece- 28% and 5L - Pulmonary on consult - Continue Nebs per [facility] - Pulmonary hygiene - keep patient net negative for better lung compliance - Aspiration precaution HOB above 30 - Continue SPO2 monitoring for SPO2 goal above 92% #Sepsis #COVID Pneumonia #MSSA pneumonia -Infectious disease consulted, appreciate recommendations -S/p remdesivir for 5 days -S/p Actemra 03/10/2021 -f/u blood culture -Monitor WBC and temperature curve -s/p steroids -04/18 procal 0.19 -03/16 Fungitell and histoplasma negative -On high dose Cefazolin per ID #Acute Encephalopathy-improved - AAO, following commands - CT head/brain no acute Abn. - Repeat CT head and MRI brain noted - Avoid benzodiazepine to reduce the possibility of delirium - Prn analgesia for pain management - Maintenance of sleep-wake cycle - PT consulted, appreciate recommendations: PT recommends subacute rehab if patient does not qualify for LTAC #Hypertension - 03/09 Echocardiogram shows a mildly dilated ascending aorta, normal LV systolic function, mild concentric LVH, LVEF 60 to 65% - Continue current antihypertensive regimen - PRN Labetalol for SBP above 160 - Continue Blood pressure monitoring per protocol #Urinary retention - Good catheter removed 04/17 and replaced 04/21 - Continue Doxazosin BID - Strict intake and output - Avoid nephrotoxic medications; Renally dose medications - Monitor and replace electrolytes as needed - Trend BMP #Acute right upper extremity DVT - Bilateral lower extremity ultrasounds negative for DVT, superficial thrombus in left gastrocnemius vein - CTA chest shows no gross pulm embolism - bilateral upper extremity ultrasound shows DVT in right upper extremity - Continue PO Eliquis - SCDs to BLE while in bed - Transfuse hemoglobin less than 7 - Monitor for signs of bleeding #Endo:Type 2 DM - Continue high dose SSI Q6hrs - Lantus qHs - Avoid Hypoglycemia History Interval history: Patient seen and examined, resting comfortable, still trach Piece in place. Following commands actually vocalizing Hospitalist Physical - Physical exam Narrative exam: General appearance: Present: no acute distress, well-nourished, obese, vocalizing through the trach - EENT Eyes: Present: PERRL, EOM intact ENT: hearing intact, clear oral mucosa, dentition normal - Neck Neck: Present: Trach collar, ROM - Respiratory Respiratory effort: normal Respiratory: bilateral: CTA, diminished - Cardiovascular Rhythm: regular Heart Sounds: Present: S1 & S2. Absent: systolic murmur, diastolic murmur - Extremities Extremities: no ischemia, pulses intact, pulses symmetrical, normal temperature Peripheral Pulses: within normal limits - Abdominal General gastrointestinal: soft, non-tender, non-distended, normal bowel sounds - Integumentary Integumentary: Present: warm, +1 edema, overall improving - Psychiatric Psychiatric: cooperative - Neurologic Neurologic: CNII-XII intact, no focal deficits, moves all extremities - Allied Health Allied health notes reviewed: nursing, PT, OT, RT, social work - Constitutional Vitals: Temp Pulse Resp BP Pulse Ox 99.9 F H 90 26 H 133/82 100 04/27/21 04:00 04/27/21 06:00 04/27/21 06:00 04/27/21 06:00 04/27/21 06:00 General appearance: Present: no acute distress, well-nourished, obese Results - Labs CBC & Chem 7: 04/24/21 04:00 04/25/21 15:04 Labs: Laboratory Last Values WBC 12.9 K/mm3 (4.5-11.0) H 04/24/21 04:00 RBC 3.33 M/mm3 (3.65-5.03) L 04/24/21 04:00 Hgb 10.2 gm/dl (11.8-15.2) L 04/24/21 04:00 Hct 30.1 % (35.5-45.6) L 04/24/21 04:00 MCV 90 fl (84-94) 04/24/21 04:00 MCH 31 pg (28-32) 04/24/21 04:00 MCHC 34 % (32-34) 04/24/21 04:00 RDW 16.6 % (13.2-15.2) H 04/24/21 04:00 Plt Count 393 K/mm3 (140-440) 04/24/21 04:00 Lymph % (Auto) 7.6 % (13.4-35.0) L 03/31/21 13:30 [place] % (Auto) 9.5 % (0.0-7.3) H 03/31/21 13:30 Eos % (Auto) 4.1 % (0.0-4.3) 03/31/21 13:30 Baso % (Auto) 0.5 % (0.0-1.8) 03/31/21 13:30 Lymph # (Auto) 0.6 K/mm3 (1.2-5.4) L 03/31/21 13:30 [place] # (Auto) 0.7 K/mm3 (0.0-0.8) 03/31/21 13:30 Eos # (Auto) 0.3 K/mm3 (0.0-0.4) 03/31/21 13:30 Baso # (Auto) 0.0 K/mm3 (0.0-0.1) 03/31/21 13:30 Add Manual Diff Complete 04/11/21 06:47 Total Counted 100 04/11/21 06:47 Seg Neutrophils % 78.3 % (40.0-70.0) H 03/31/21 13:30 Seg Neuts % (Manual) 76.0 % (40.0-70.0) H 04/11/21 06:47 Band Neutrophils % 2.0 % 04/11/21 06:47 Lymphocytes % (Manual) 10.0 % (13.4-35.0) L 04/11/21 06:47 Reactive Lymphs % (Man) 0 % 04/11/21 06:47 Monocytes % (Manual) 7.0 % (0.0-7.3) 04/11/21 06:47 Eosinophils % (Manual) 4.0 % (0.0-4.3) 04/11/21 06:47 Basophils % (Manual) 0 % (0.0-1.8) 04/11/21 06:47 Metamyelocytes % 1.0 % 04/11/21 06:47 Myelocytes % 0 % 04/11/21 06:47 Promyelocytes % 0 % 04/11/21 06:47 Blast Cells % 0 % 04/11/21 06:47 Nucleated RBC % Not Reportable 04/11/21 06:47 Seg Neutrophils # 5.8 K/mm3 (1.8-7.7) 03/31/21 13:30 Seg Neutrophils # Man 8.3 K/mm3 (1.8-7.7) H 04/11/21 06:47 Band Neutrophils # 0.2 K/mm3 04/11/21 06:47 Lymphocytes # (Manual) 1.1 K/mm3 (1.2-5.4) L 04/11/21 06:47 Abs React Lymphs (Man) 0.0 K/mm3 04/11/21 06:47 Monocytes # (Manual) 0.8 K/mm3 (0.0-0.8) 04/11/21 06:47 Eosinophils # (Manual) 0.4 K/mm3 (0.0-0.4) 04/11/21 06:47 Basophils # (Manual) 0.0 K/mm3 (0.0-0.1) 04/11/21 06:47 Metamyelocytes # 0.1 K/mm3 04/11/21 06:47 Myelocytes # 0.0 K/mm3 04/11/21 06:47 Promyelocytes # 0.0 K/mm3 04/11/21 06:47 Blast Cells # 0.0 K/mm3 04/11/21 06:47 WBC Morphology Not Reportable 04/11/21 06:47 Hypersegmented Neuts Not Reportable 04/11/21 06:47 Hyposegmented Neuts Not Reportable 04/11/21 06:47 Hypogranular Neuts Not Reportable 04/11/21 06:47 Smudge Cells Not Reportable 04/11/21 06:47 Toxic Granulation 1+ 04/11/21 06:47 Toxic Vacuolation Not Reportable 04/11/21 06:47 Dohle Bodies Not Reportable 04/11/21 06:47 Pelger-Huet Anomaly Not Reportable 04/11/21 06:47 Mely Rods Not Reportable 04/11/21 06:47 Platelet Estimate Consistent w auto 04/11/21 06:47 Clumped Platelets Not Reportable 04/11/21 06:47 Plt Clumps, EDTA Not Reportable 04/11/21 06:47 Large Platelets Not Reportable 04/11/21 06:47 Giant Platelets Not Reportable 04/11/21 06:47 Platelet Satelliting Not Reportable 04/11/21 06:47 Plt Morphology Comment Not Reportable 04/11/21 06:47 RBC Morphology Not Reportable 04/11/21 06:47 Dimorphic RBCs Not Reportable 04/11/21 06:47 Polychromasia Not Reportable 04/11/21 06:47 Hypochromasia Not Reportable 04/11/21 06:47 Poikilocytosis Not Reportable 04/11/21 06:47 Anisocytosis 1+ 04/11/21 06:47 Microcytosis Not Reportable 04/11/21 06:47 Macrocytosis Not Reportable 04/11/21 06:47 Spherocytes Not Reportable 04/11/21 06:47 Pappenheimer Bodies Not Reportable 04/11/21 06:47 Sickle Cells Not Reportable 04/11/21 06:47 Target Cells Not Reportable 04/11/21 06:47 Tear Drop Cells Not Reportable 04/11/21 06:47 Ovalocytes Not Reportable 04/11/21 06:47 Helmet Cells Not Reportable 04/11/21 06:47 Longo-Beltrami Bodies Not Reportable 04/11/21 06:47 [place] Rings Not Reportable 04/11/21 06:47 [place] Cells Not Reportable 04/11/21 06:47 Bite Cells Not Reportable 04/11/21 06:47 Crenated Cell Not Reportable 04/11/21 06:47 Elliptocytes Not Reportable 04/11/21 06:47 Acanthocytes (Spur) Not Reportable 04/11/21 06:47 Rouleaux Not Reportable 04/11/21 06:47 Hemoglobin C Crystals Not Reportable 04/11/21 06:47 Schistocytes Not Reportable 04/11/21 06:47 Malaria parasites Not Reportable 04/11/21 06:47 Shaheen Bodies Not Reportable 04/11/21 06:47 Hem Pathologist Commnt No 04/11/21 06:47 PT 13.4 Sec. (12.2-14.9) 04/11/21 18:17 INR 0.92 (0.87-1.13) 04/11/21 18:17 APTT 61.1 Sec. (24.2-36.6) H* 04/11/21 18:17 D-Dimer 1359.12 ng/mlDDU (0-234) H 03/17/21 04:40 Heparin Anti-Xa Level 1.03 U.I./ml (0.3-0.7) H 04/12/21 05:11 ABG pH 7.503 (7.320-7.450) H 04/21/21 11:37 POC ABG pCO2 43.0 mmHg (32.0-48.0) 04/21/21 11:37 ABG pCO2 50.9 mm Hg 04/18/21 11:30 POC ABG pO2 92.3 mmHg (83-108) 04/21/21 11:37 ABG pO2 108.9 mm Hg (80.0-90.0) H 04/18/21 11:30 POC ABG HCO3 33.0 04/21/21 11:37 ABG HCO3 36.2 mmol/L (20.0-26.0) H 04/18/21 11:30 ABG O2 Saturation 98.2 (0-100) 04/21/21 11:37 ABG O2 Content 12.1 (0.0-44) 04/18/21 11:30 POC ABG Base Excess 9.0 04/21/21 11:37 ABG Base Excess 11.2 mmol/L (-2.0-3.0) H 04/18/21 11:30 ABG Hemoglobin 10.8 (12.0-17.5) L 04/21/21 11:37 ABG Oxyhemoglobin 97.8 (94-98) 04/21/21 11:37 ABG Carboxyhemoglobin 1.7 % (0.0-5.0) 04/18/21 11:30 ABG Methemoglobin 0.3 (0.0-1.5) 04/21/21 11:37 ABG Sodium 134.2 mmol/L (136.0-145.0) L 03/12/21 21:54 ABG Potassium 4.9 mmol/L (3.40-4.50) H 03/12/21 21:54 ABG Chloride 99.0 mmol/L (98-107) 03/12/21 21:54 ABG Glucose 306 mg/dL (65-95) H 03/12/21 21:54 Oxyhemoglobin 95.9 % (95.0-99.0) 04/18/21 11:30 Carboxyhemoglobin 0.1 (0.5-1.5) L 04/21/21 11:37 FiO2 40 % 04/18/21 11:30 FiO2 % 35.0 04/21/21 11:37 Sodium 135 mmol/L (137-145) L 04/25/21 15:04 Potassium 4.5 mmol/L (3.6-5.0) 04/25/21 15:04 Chloride 101.5 mmol/L (98-107) 04/25/21 15:04 Carbon Dioxide 24 mmol/L (22-30) 04/25/21 15:04 Anion Gap 14 mmol/L 04/25/21 15:04 BUN 11 mg/dL (9-20) 04/25/21 15:04 Creatinine 0.4 mg/dL (0.8-1.3) L 04/25/21 15:04 Estimated GFR > 60 ml/min 04/25/21 15:04 BUN/Creatinine Ratio 28 % 04/25/21 15:04 Glucose 142 mg/dL (75-100) H 04/25/21 15:04 POC Glucose 112 mg/dL (70-105) H 04/27/21 06:13 Lactic Acid 1.90 mmol/L (0.7-2.0) 03/08/21 23:51 Calcium 9.0 mg/dL (8.4-10.2) 04/25/21 15:04 Phosphorus 3.70 mg/dL (2.5-4.5) 04/25/21 15:04 Magnesium 2.30 mg/dL (1.7-2.3) 04/25/21 15:04 Ferritin 976.4 ng/mL (30.0-300.0) H 03/15/21 04:00 Total Bilirubin 0.20 mg/dL (0.1-1.2) 03/12/21 08:03 AST 10 units/L (5-40) 03/12/21 08:03 ALT 16 units/L (7-56) 03/12/21 08:03 Alkaline Phosphatase 77 units/L (35-129) 03/12/21 08:03 Lactate Dehydrogenase 630 units/L (91-180) H 03/15/21 06:06 C-Reactive Protein 0.40 mg/dL (0.00-1.30) 03/17/21 04:40 NT-Pro-B Natriuret Pep 1053 pg/mL (0-900) H 03/08/21 20:24 Total Protein 6.0 g/dL (6.3-8.2) L 03/12/21 08:03 Albumin 2.9 g/dL (3.9-5) L 03/12/21 08:03 Albumin/Globulin Ratio 0.9 % 03/12/21 08:03 Triglycerides 305 mg/dL (2-149) H 03/22/21 07:26 Procalcitonin 0.19 ng/mL (<0.15) 04/18/21 04:20 Arterial Blood Glucose 306 mg/dL (65-95) H 03/12/21 21:54 Arterial Blood Ionized Calcium 5.0 mg/dL (4.6-5.3) 03/12/21 21:54 Urine Color Yellow (Yellow) 04/14/21 Unknown Urine Turbidity Clear (Clear) 04/14/21 Unknown Urine pH 8.0 (5.0-7.0) H 04/14/21 Unknown Ur Specific [place] 1.009 (1.003-1.030) 04/14/21 Unknown Urine Protein <15 mg/dl mg/dL (Negative) 04/14/21 Unknown Urine Glucose (UA) Neg mg/dL (Negative) 04/14/21 Unknown Urine Ketones Neg mg/dL (Negative) 04/14/21 Unknown Urine Blood Neg (Negative) 04/14/21 Unknown Urine Nitrite Neg (Negative) 04/14/21 Unknown Urine Bilirubin Neg (Negative) 04/14/21 Unknown Urine Urobilinogen 2.0 mg/dL (<2.0) 04/14/21 Unknown Ur Leukocyte Esterase Neg (Negative) 04/14/21 Unknown Urine WBC (Auto) < 1.0 /HPF (0.0-6.0) 04/14/21 Unknown Urine RBC (Auto) < 1.0 /HPF (0.0-6.0) 04/14/21 Unknown Urine Bacteria (Auto) 1+ /HPF (Negative) 03/09/21 04:10 Urine Mucus Few /HPF 03/09/21 04:10 Vancomycin Trough 16.8 ug/mL (5.0-20.0) 04/16/21 14:30 Coronavirus (PCR) Positive (Negative) A 03/09/21 08:00 Miscellaneous Test Flexitest 1 03/16/21 13:14 Good/IV: Voiding Method Indwelling Catheter Active Medications - Current Medications Current Medications: Generic Name Dose Route Start Last Admin Trade Name Freq PRN Reason Stop Dose Admin Acetaminophen 650 mg 03/09/21 01:26 04/24/21 15:07 Acetaminophen 325 Mg Tab PO 650 mg Q4H PRN Administration Pain MILD(1-3)/Fever >100.5/RAYO Albuterol 2.5 mg 03/09/21 01:26 03/18/21 21:06 Albuterol 2.5 Mg/3 Ml Nebu IH 2.5 mg Q4HRT PRN Administration Shortness Of Breath Amlodipine Besylate 10 mg 04/27/21 10:00 Amlodipine 10 Mg Tab FEEDTUBE DAILY BLANCA Apixaban 5 mg 04/26/21 22:00 04/26/21 21:11 Apixaban 5 Mg Tab FEEDTUBE 5 mg Q12HR BLANCA Administration Protocol Arformoterol Tartrate 15 mcg 03/11/21 20:00 04/26/21 21:55 Arformoterol 15 Mcg/2 Ml Nebu IH 15 mcg Q12HRT BLANCA Administration Dextrose 0 ml 03/20/21 10:52 Dextrose 10% *Hypoglycemia IV PRN PRN Hypoglycemia Docusate Sodium 100 mg 04/26/21 22:00 04/26/21 21:12 Docusate Sodium 100 Mg/10 Ml Oral Liqd FEEDTUBE 100 mg BID BLANCA Administration Doxazosin Mesylate 1 mg 04/26/21 10:00 04/26/21 21:10 Doxazosin 1 Mg Tab FEEDTUBE 1 mg BID BLANCA Administration Famotidine 20 mg 03/12/21 22:00 04/26/21 21:10 Famotidine 20 Mg Tab FEEDTUBE 20 mg BID BLANCA Administration Glycopyrrolate 2 mg 04/22/21 23:42 04/26/21 20:18 Glycopyrrolate 2 Mg Tab PO 2 mg TID BLANCA Administration Hydralazine HCl 50 mg 04/26/21 14:00 04/27/21 05:44 Hydralazine 25 Mg Tab FEEDTUBE 50 mg Q8HR BLANCA Administration Cefazolin Sodium 3 gm/ Sodium 100 mls @ 100 mls/30 min 04/20/21 14:00 04/27/21 05:44 Chloride IV 05/04/21 06:29 100 mls/30 min Q8HR BLANCA Administration Protocol Insulin Glargine 18 units 04/07/21 22:00 04/26/21 21:13 Insulin Glargine 100 Units/Ml SUB-Q 18 units QHS BLANCA Administration Insulin Human Lispro 0 unit 03/11/21 18:00 04/27/21 06:16 Insulin Lispro 100 Unit/Ml SUB-Q Not Given Q6HR [facility] Protocol Metoprolol Tartrate 12.5 mg 04/26/21 22:00 04/26/21 21:11 Metoprolol Tartrate 25 Mg Tab FEEDTUBE 12.5 mg BID BLANCA Administration Ondansetron HCl 4 mg 03/09/21 01:26 04/13/21 16:17 Ondansetron 4 Mg/2 Ml Inj IV 4 mg Q8H PRN Administration Nausea And Vomiting Oxycodone HCl 5 mg 04/26/21 10:00 04/26/21 21:11 Oxycodone 5 Mg Tab FEEDTUBE 5 mg Q6HR PRN Administration Pain, Moderate (4-6) Phenyleph/Shark Oil/Min Oil/Petrol 1 applic 03/22/21 17:35 04/06/21 04:04 Pe/Mo/Pet,Wh 10 Applic/ Gm Tube FL 1 applic Q6HR PRN Administration Hemorrhoids Scopolamine 1 each 04/19/21 13:00 04/25/21 09:53 Scopolamine Transdermal Patch 72 Hr TD 1 each Q3D BLANCA Administration Sodium Chloride 10 ml 03/09/21 10:00 04/26/21 21:15 Sodium Chloride 0.9% 10 Ml Flush Syringe IV 10 ml BID BLANCA Administration Sodium Chloride 10 ml 03/09/21 01:26 04/10/21 21:07 Sodium Chloride 0.9% 10 Ml Flush Syringe IV 10 ml PRN PRN Administration LINE FLUSH Nutrition/Malnutrition Assess - Dietary Evaluation Nutrition/Malnutrition Findings: Nutrition Notes Start: 03/09/21 08:49 Freq: Status: Active Protocol: Document 04/21/21 14:27 [facility] (Rec: 04/21/21 14:29 [facility] [id number]) Nutrition Notes Initial or Follow up Reassessment Current Diagnosis Diabetes,Sepsis,Hypertension, Respiratory Failure Other Pertinent Diagnosis COVID-19, Bilateral Pneumonia. Current Diet TF-Glucerna 1.2 at 70 ml/hr Labs/Tests reviewed Pertinent Medications Lasix Height 5 ft 11 in Weight 122.4 kg [place] Body Weight (kg) 78.18 BMI 37.6 Weight Status Obese Subjective/Other Information Pt tolerating T-piece trials for past two days. Per RN, will move to CU. Pt continues to tolerate TF at goal rate. Percent of energy/protein needs met: 82% energy 78% pro Burn Absent Trauma Absent #1 Nutrition Diagnosis Inadequate oral intake Diagnosis Progress(for reassessment Continues documentation) Is patient on ventilator? No Is Patient Ambulatory and/or Out of Bed No REE-([facility]-confined to bed) [phone] Calculation Used for Recommendations 70-80% energy needs Additional Notes Energy needs: 4069-7486 kcal/ day Pro needs 1.3g/kg adjBW: 130g/ day Fluid needs 1ml/kcal Nutrition Intervention Nutrition Support: Continue Glucerna 1.2 at 70ml/ hr with 110ml water flush q4h. Kcal 2,016 Protein (gm) 101 Carbohydrates (gm) 192 Fat (gm) 101 Fluid (mL) 1,352 Fiber (gm) 27 Goal #1 TF tolerance Goal #2 TF to meet at least 75% energy and pro needs Follow-Up By: 04/28/21 Additional Comments F/U: stable TF, wt, resp status
[2021-04-27] MEDS: amLODIPine 10 MG TAB FEEDTUBE SCH (09:06)
[2021-04-27] MEDS: DOCUSATE SODIUM 100 MG/10 ML ORAL LIQD FEEDTUBE SCH ×2 (09:06→22:09)
[2021-04-27] MEDS: DOXAZOSIN 1 MG TAB FEEDTUBE SCH ×2 (09:07→22:09)
[2021-04-27] MEDS: FAMOTIDINE 20 MG TAB FEEDTUBE SCH ×2 (09:07→22:08)
[2021-04-27] MEDS: METOPROLOL TARTRATE 25 MG TAB FEEDTUBE SCH ×2 (09:07→22:10)
[2021-04-27] MEDS: APIXABAN 5 MG TAB FEEDTUBE SCH ×2 (09:07→22:09)
[2021-04-27] MEDS: GLYCOPYRROLATE 2 MG TAB PO SCH ×3 (09:07→22:09)
[2021-04-27] MEDS: ARFORMOTEROL 15 MCG/2 ML NEBU IH SCH ×2 (09:45→21:00)
--- NOTE | 2021-04-27 13:44 | Progress Note ---
Assessment and Plan Acute hypoxemic respiratory failure, on continuous noninvasive ventilation COVID-19 infection Bilateral pneumonia History of diabetes Obesity Hypertension Leukocytosis Possible venous thromboembolic phenomena with significantly elevated D-dimers DM II Elevated serum inflammatory markers to include CRP levels, ferritin and LDH - continue RTC t-piece as tolerated - PMV trials as tolerated - continue care as below otherwise; - continue to wean supplemental oxygen for target O2 sat's > 90% acutely - aspiration precautions - continue lung protective strategies - continue bronchodilators with [facility] care and pulmonary hygiene per RT - wean per pulmonary driven protocols otherwise - continue accuchecks with glycemic control per SSI for target blood glucose < 180 mg/dL - avoid nephrotoxins, renally dose all medications - avoid benzodiazepine's, reduce the possibility of delirium - AB's per ID rec's - prn analgesia per pain score - Maintenance of sleep-wake cycle, avoid delirium - G.I. & VTE prophylaxis - PT/OT/ROM exercises - mobility protocols for pressure ulcer prophylaxis - Monitor hemodynamics closely - continue other care per attending / other consultants - discharge planning ongoing concurrently COVID SPECIFIC INTERVENTIONS - Remdesivir as per ID/Pulmonary developed protocols (received) - continue systemic steroids for severe COVID-19 infection empirically (Decadron) - follow repeat COVID tests results - zinc and vitamin C supplementation - Monitor inflammatory markers per facility protocol - ferritin, Ddimer, CRP - therapeutic anticoagulation per system Protocol based on d-dimer and clinical considerations (treatment dose) - contact and airborne isolation discontinued .... Re-evaluate in am & prn Subjective Date of service: 04/27/21 Principal diagnosis: COVID-19 infection; DM II; Bilateral pneumonia; Obesity; HTN Interval history: Patient is seen today for: Acute hypoxemic respiratory failure; COVID-19 infect ion; DM II; Bilateral pneumonia; Obesity; HTN Seen and examined at bedside; 24hour events reviewed; nursing and respiratory care staff consulted; no adverse overnight events reported to me; resting in bed; remains on RTC t-piece feels better and a little stronger; failed swallow evaluation and remains on tube feeds; tentatively for transfer to SNF Objective Vital Signs - 12hr 04/27/21 04/27/21 04/27/21 02:00 03:00 04:00 Temperature 99.9 F H Pulse Rate 90 91 H 89 Pulse Rate [ 100 H From Monitor] Pulse Rate [ 90 Left Dorsalis Pedis] Respiratory 27 H 27 H 27 H Rate Blood Pressure 124/72 132/75 131/80 O2 Sat by Pulse 98 96 99 Oximetry O2 Sat by Pulse Oximetry [ Assessment] 04/27/21 04/27/21 04/27/21 05:00 05:44 06:00 Temperature Pulse Rate 90 90 90 Pulse Rate [ From Monitor] Pulse Rate [ Left Dorsalis Pedis] Respiratory 29 H 26 H Rate Blood Pressure 131/80 134/79 133/82 O2 Sat by Pulse 99 100 Oximetry O2 Sat by Pulse Oximetry [ Assessment] 04/27/21 04/27/21 04/27/21 07:00 07:21 08:00 Temperature 98.0 F Pulse Rate 90 94 H Pulse Rate [ 100 H From Monitor] Pulse Rate [ 88 Left Dorsalis Pedis] Respiratory 30 H 25 H Rate Blood Pressure 139/85 137/83 O2 Sat by Pulse 100 99 Oximetry O2 Sat by Pulse 100 Oximetry [ Assessment] 04/27/21 04/27/21 04/27/21 09:00 09:06 09:07 Temperature Pulse Rate 88 90 90 Pulse Rate [ From Monitor] Pulse Rate [ Left Dorsalis Pedis] Respiratory 23 Rate Blood Pressure 150/92 150/92 152/93 O2 Sat by Pulse 100 Oximetry O2 Sat by Pulse Oximetry [ Assessment] 04/27/21 04/27/21 04/27/21 09:55 10:00 11:00 Temperature Pulse Rate 91 H 86 Pulse Rate [ From Monitor] Pulse Rate [ Left Dorsalis Pedis] Respiratory 29 H 18 Rate Blood Pressure 133/83 131/75 O2 Sat by Pulse 100 97 97 Oximetry O2 Sat by Pulse Oximetry [ Assessment] 04/27/21 04/27/21 04/27/21 11:17 12:00 13:00 Temperature 98.7 F Pulse Rate 89 87 Pulse Rate [ 100 H From Monitor] Pulse Rate [ 86 Left Dorsalis Pedis] Respiratory 28 H 27 H Rate Blood Pressure 129/76 128/77 O2 Sat by Pulse 99 100 Oximetry O2 Sat by Pulse Oximetry [ Assessment] Constitutional: no acute distress, other (elderly obese male with mildly increased respiratory effort at rest) Eyes: non-icteric, other ENT: oropharynx moist, other (+ midline tracheostomy) Neck: supple, no lymphadenopathy, lymphadenopathy, no JVD, other (large circumference) Effort: mildly labored Ascultation: Bilateral: diminished breath sounds, rales, rhonchi Percussion: Bilateral: not dull Cardiovascular: regular rate and rhythm, other (tachycardia, S1,S2) Gastrointestinal: normoactive bowel sounds, soft, non-tender, non-distended (protuberant) Integumentary: normal Extremities: no cyanosis, pulses normal, no ischemia or petechiae, edema (upper extremities), other Neurologic: non-focal exam (grossly), pupils equal and round, CN II-XII normal, other (follows simple prompts) Psychiatric: mood appropriate, affect normal CBC and BMP: 05/02/21 08:50 05/02/21 06:36 ABG, PT/INR, D-dimer: ABG ABG pH 7.503 (7.320-7.450) H 04/21/21 11:37 POC ABG pCO2 43.0 mmHg (32.0-48.0) 04/21/21 11:37 ABG pCO2 50.9 mm Hg 04/18/21 11:30 POC ABG pO2 92.3 mmHg (83-108) 04/21/21 11:37 ABG pO2 108.9 mm Hg (80.0-90.0) H 04/18/21 11:30 POC ABG HCO3 33.0 04/21/21 11:37 ABG O2 Saturation 98.2 (0-100) 04/21/21 11:37 PT/INR, D-dimer PT 13.4 Sec. (12.2-14.9) 04/11/21 18:17 INR 0.92 (0.87-1.13) 04/11/21 18:17 D-Dimer 1359.12 ng/mlDDU (0-234) H 03/17/21 04:40 Abnormal lab findings: Abnormal Labs 03/08/21 03/08/21 03/08/21 20:24 20:24 20:24 WBC 22.6 H RBC 5.44 H Hgb 15.7 H Hct 49.2 H MCV MCHC RDW Plt Count Lymph % (Auto) [place] % (Auto) Lymph # (Auto) [place] # (Auto) Seg Neutrophils % Seg Neuts % (Manual) 83.0 H Lymphocytes % (Manual) 9.0 L Monocytes % (Manual) 8.0 H Nucleated RBC % Seg Neutrophils # Seg Neutrophils # Man 18.8 H Lymphocytes # (Manual) Monocytes # (Manual) 1.8 H PT 16.1 H INR 1.17 H APTT D-Dimer > 77529 H Heparin Anti-Xa Level ABG pH POC ABG pCO2 POC ABG pO2 ABG pO2 ABG HCO3 ABG O2 Saturation ABG Base Excess ABG Hemoglobin ABG Oxyhemoglobin ABG Sodium ABG Potassium ABG Glucose Oxyhemoglobin Carboxyhemoglobin Sodium 136 L Potassium Chloride 93.9 L Carbon Dioxide BUN 29 H Creatinine Glucose 208 H POC Glucose Lactic Acid Calcium Phosphorus Magnesium Ferritin Lactate Dehydrogenase 624 H C-Reactive Protein 18.00 H NT-Pro-B Natriuret Pep 1053 H Total Protein Albumin Triglycerides Arterial Blood Glucose Urine pH Ur Specific [place] Coronavirus (PCR) 03/08/21 03/08/21 03/09/21 20:24 20:24 04:10 WBC RBC Hgb Hct MCV MCHC RDW Plt Count Lymph % (Auto) [place] % (Auto) Lymph # (Auto) [place] # (Auto) Seg Neutrophils % Seg Neuts % (Manual) Lymphocytes % (Manual) Monocytes % (Manual) Nucleated RBC % Seg Neutrophils # Seg Neutrophils # Man Lymphocytes # (Manual) Monocytes # (Manual) PT INR APTT D-Dimer Heparin Anti-Xa Level ABG pH POC ABG pCO2 POC ABG pO2 ABG pO2 ABG HCO3 ABG O2 Saturation ABG Base Excess ABG Hemoglobin ABG Oxyhemoglobin ABG Sodium ABG Potassium ABG Glucose Oxyhemoglobin Carboxyhemoglobin Sodium Potassium Chloride Carbon Dioxide BUN Creatinine Glucose POC Glucose Lactic Acid 2.10 H* Calcium Phosphorus Magnesium Ferritin 877.5 H Lactate Dehydrogenase C-Reactive Protein NT-Pro-B Natriuret Pep Total Protein Albumin Triglycerides Arterial Blood Glucose Urine pH Ur Specific [place] 1.041 H Coronavirus (PCR) 03/09/21 03/09/21 03/09/21 07:46 08:00 13:01 WBC RBC Hgb Hct MCV MCHC RDW Plt Count Lymph % (Auto) [place] % (Auto) Lymph # (Auto) [place] # (Auto) Seg Neutrophils % Seg Neuts % (Manual) Lymphocytes % (Manual) Monocytes % (Manual) Nucleated RBC % Seg Neutrophils # Seg Neutrophils # Man Lymphocytes # (Manual) Monocytes # (Manual) PT INR APTT D-Dimer Heparin Anti-Xa Level ABG pH POC ABG pCO2 POC ABG pO2 ABG pO2 ABG HCO3 ABG O2 Saturation ABG Base Excess ABG Hemoglobin ABG Oxyhemoglobin ABG Sodium ABG Potassium ABG Glucose Oxyhemoglobin Carboxyhemoglobin Sodium Potassium Chloride Carbon Dioxide BUN Creatinine Glucose POC Glucose 191 H 182 H Lactic Acid Calcium Phosphorus Magnesium Ferritin Lactate Dehydrogenase C-Reactive Protein NT-Pro-B Natriuret Pep Total Protein Albumin Triglycerides Arterial Blood Glucose Urine pH Ur Specific [place] Coronavirus (PCR) Positive A 03/09/21 03/09/21 03/09/21 15:19 17:48 18:10 WBC RBC Hgb Hct MCV MCHC RDW Plt Count Lymph % (Auto) [place] % (Auto) Lymph # (Auto) [place] # (Auto) Seg Neutrophils % Seg Neuts % (Manual) Lymphocytes % (Manual) Monocytes % (Manual) Nucleated RBC % Seg Neutrophils # Seg Neutrophils # Man Lymphocytes # (Manual) Monocytes # (Manual) PT INR APTT D-Dimer Heparin Anti-Xa Level ABG pH POC ABG pCO2 POC ABG pO2 ABG pO2 47.3 L ABG HCO3 26.3 H ABG O2 Saturation 83.7 L ABG Base Excess ABG Hemoglobin ABG Oxyhemoglobin ABG Sodium ABG Potassium ABG Glucose Oxyhemoglobin 82.1 L Carboxyhemoglobin Sodium Potassium Chloride Carbon Dioxide BUN 29 H Creatinine Glucose 214 H POC Glucose 194 H Lactic Acid Calcium Phosphorus Magnesium Ferritin Lactate Dehydrogenase C-Reactive Protein NT-Pro-B Natriuret Pep Total Protein Albumin 3.4 L Triglycerides Arterial Blood Glucose Urine pH Ur Specific [place] Coronavirus (PCR) 03/09/21 03/10/21 03/10/21 20:40 04:29 04:29 WBC 20.6 H RBC 5.07 H Hgb Hct 46.2 H MCV MCHC RDW Plt Count Lymph % (Auto) [place] % (Auto) Lymph # (Auto) [place] # (Auto) Seg Neutrophils % Seg Neuts % (Manual) 94.0 H Lymphocytes % (Manual) 1.0 L Monocytes % (Manual) Nucleated RBC % 3.0 H Seg Neutrophils # Seg Neutrophils # Man 19.4 H Lymphocytes # (Manual) 0.2 L Monocytes # (Manual) 1.0 H PT INR APTT D-Dimer Heparin Anti-Xa Level ABG pH POC ABG pCO2 POC ABG pO2 ABG pO2 ABG HCO3 ABG O2 Saturation ABG Base Excess ABG Hemoglobin ABG Oxyhemoglobin ABG Sodium ABG Potassium ABG Glucose Oxyhemoglobin Carboxyhemoglobin Sodium Potassium Chloride Carbon Dioxide BUN 29 H Creatinine Glucose 188 H POC Glucose 176 H Lactic Acid Calcium Phosphorus Magnesium Ferritin Lactate Dehydrogenase C-Reactive Protein NT-Pro-B Natriuret Pep Total Protein Albumin 3.3 L Triglycerides Arterial Blood Glucose Urine pH Ur Specific [place] Coronavirus (PCR) 03/10/21 03/10/21 03/10/21 05:22 10:27 15:25 WBC RBC Hgb Hct MCV MCHC RDW Plt Count Lymph % (Auto) [place] % (Auto) Lymph # (Auto) [place] # (Auto) Seg Neutrophils % Seg Neuts % (Manual) Lymphocytes % (Manual) Monocytes % (Manual) Nucleated RBC % Seg Neutrophils # Seg Neutrophils # Man Lymphocytes # (Manual) Monocytes # (Manual) PT INR APTT D-Dimer Heparin Anti-Xa Level ABG pH 7.488 H 7.488 H POC ABG pCO2 POC ABG pO2 ABG pO2 47.7 L 50.5 L ABG HCO3 ABG O2 Saturation 86.2 L 87.9 L ABG Base Excess ABG Hemoglobin ABG Oxyhemoglobin ABG Sodium ABG Potassium ABG Glucose Oxyhemoglobin 84.6 L 86.2 L Carboxyhemoglobin Sodium Potassium Chloride Carbon Dioxide BUN Creatinine Glucose POC Glucose 155 H Lactic Acid Calcium Phosphorus Magnesium Ferritin Lactate Dehydrogenase C-Reactive Protein NT-Pro-B Natriuret Pep Total Protein Albumin Triglycerides Arterial Blood Glucose Urine pH Ur Specific [place] Coronavirus (PCR) 03/10/21 03/10/21 03/11/21 18:10 18:55 00:07 WBC RBC Hgb Hct MCV MCHC RDW Plt Count Lymph % (Auto) [place] % (Auto) Lymph # (Auto) [place] # (Auto) Seg Neutrophils % Seg Neuts % (Manual) Lymphocytes % (Manual) Monocytes % (Manual) Nucleated RBC % Seg Neutrophils # Seg Neutrophils # Man Lymphocytes # (Manual) Monocytes # (Manual) PT INR APTT D-Dimer Heparin Anti-Xa Level ABG pH 7.343 L POC ABG pCO2 POC ABG pO2 ABG pO2 60.4 L ABG HCO3 27.9 H ABG O2 Saturation 88.7 L ABG Base Excess ABG Hemoglobin ABG Oxyhemoglobin ABG Sodium ABG Potassium ABG Glucose Oxyhemoglobin 86.9 L Carboxyhemoglobin Sodium Potassium Chloride Carbon Dioxide BUN Creatinine Glucose POC Glucose 187 H 139 H Lactic Acid Calcium Phosphorus Magnesium Ferritin Lactate Dehydrogenase C-Reactive Protein NT-Pro-B Natriuret Pep Total Protein Albumin Triglycerides Arterial Blood Glucose Urine pH Ur Specific [place] Coronavirus (PCR) 03/11/21 03/11/21 03/11/21 02:09 04:28 08:06 WBC RBC Hgb Hct MCV MCHC RDW Plt Count Lymph % (Auto) [place] % (Auto) Lymph # (Auto) [place] # (Auto) Seg Neutrophils % Seg Neuts % (Manual) Lymphocytes % (Manual) Monocytes % (Manual) Nucleated RBC % Seg Neutrophils # Seg Neutrophils # Man Lymphocytes # (Manual) Monocytes # (Manual) PT INR APTT D-Dimer Heparin Anti-Xa Level ABG pH 7.277 L POC ABG pCO2 55.9 H POC ABG pO2 54.4 L ABG pO2 ABG HCO3 ABG O2 Saturation ABG Base Excess ABG Hemoglobin ABG Oxyhemoglobin 83.0 L ABG Sodium ABG Potassium 4.8 H ABG Glucose 180 H Oxyhemoglobin Carboxyhemoglobin Sodium Potassium Chloride Carbon Dioxide BUN 38 H Creatinine Glucose 249 H POC Glucose 278 H Lactic Acid Calcium Phosphorus Magnesium Ferritin Lactate Dehydrogenase C-Reactive Protein NT-Pro-B Natriuret Pep Total Protein Albumin 3.2 L Triglycerides Arterial Blood Glucose 180 H Urine pH Ur Specific [place] Coronavirus (PCR) 03/11/21 03/11/21 03/11/21 11:29 15:06 15:48 WBC RBC Hgb Hct MCV MCHC RDW Plt Count Lymph % (Auto) [place] % (Auto) Lymph # (Auto) [place] # (Auto) Seg Neutrophils % Seg Neuts % (Manual) Lymphocytes % (Manual) Monocytes % (Manual) Nucleated RBC % Seg Neutrophils # Seg Neutrophils # Man Lymphocytes # (Manual) Monocytes # (Manual) PT INR APTT D-Dimer Heparin Anti-Xa Level ABG pH 7.260 L POC ABG pCO2 POC ABG pO2 ABG pO2 53.5 L ABG HCO3 29.5 H ABG O2 Saturation 84.0 L ABG Base Excess ABG Hemoglobin ABG Oxyhemoglobin ABG Sodium ABG Potassium ABG Glucose Oxyhemoglobin 82.3 L Carboxyhemoglobin Sodium Potassium Chloride Carbon Dioxide BUN Creatinine Glucose POC Glucose 288 H 295 H Lactic Acid Calcium Phosphorus Magnesium Ferritin Lactate Dehydrogenase C-Reactive Protein NT-Pro-B Natriuret Pep Total Protein Albumin Triglycerides Arterial Blood Glucose Urine pH Ur Specific [place] Coronavirus (PCR) 03/12/21 03/12/21 03/12/21 00:01 05:24 08:03 WBC RBC Hgb Hct MCV MCHC RDW Plt Count Lymph % (Auto) [place] % (Auto) Lymph # (Auto) [place] # (Auto) Seg Neutrophils % Seg Neuts % (Manual) Lymphocytes % (Manual) Monocytes % (Manual) Nucleated RBC % Seg Neutrophils # Seg Neutrophils # Man Lymphocytes # (Manual) Monocytes # (Manual) PT INR APTT D-Dimer Heparin Anti-Xa Level ABG pH POC ABG pCO2 POC ABG pO2 ABG pO2 ABG HCO3 ABG O2 Saturation ABG Base Excess ABG Hemoglobin ABG Oxyhemoglobin ABG Sodium ABG Potassium ABG Glucose Oxyhemoglobin Carboxyhemoglobin Sodium 135 L Potassium Chloride Carbon Dioxide BUN 48 H Creatinine Glucose 358 H POC Glucose 304 H 310 H Lactic Acid Calcium Phosphorus Magnesium Ferritin Lactate Dehydrogenase C-Reactive Protein NT-Pro-B Natriuret Pep Total Protein 6.0 L Albumin 2.9 L Triglycerides Arterial Blood Glucose Urine pH Ur Specific [place] Coronavirus (PCR) 03/12/21 03/12/21 03/12/21 08:03 10:43 11:31 WBC 14.6 H RBC Hgb Hct MCV MCHC RDW Plt Count Lymph % (Auto) [place] % (Auto) Lymph # (Auto) [place] # (Auto) Seg Neutrophils % Seg Neuts % (Manual) Lymphocytes % (Manual) Monocytes % (Manual) Nucleated RBC % Seg Neutrophils # Seg Neutrophils # Man Lymphocytes # (Manual) Monocytes # (Manual) PT INR APTT D-Dimer Heparin Anti-Xa Level ABG pH 7.248 L POC ABG pCO2 POC ABG pO2 ABG pO2 73.7 L ABG HCO3 32.0 H ABG O2 Saturation 93.9 L ABG Base Excess ABG Hemoglobin ABG Oxyhemoglobin ABG Sodium ABG Potassium ABG Glucose Oxyhemoglobin 92.1 L Carboxyhemoglobin Sodium Potassium Chloride Carbon Dioxide BUN Creatinine Glucose POC Glucose 359 H Lactic Acid Calcium Phosphorus Magnesium Ferritin Lactate Dehydrogenase C-Reactive Protein NT-Pro-B Natriuret Pep Total Protein Albumin Triglycerides Arterial Blood Glucose Urine pH Ur Specific [place] Coronavirus (PCR) 03/12/21 03/12/21 03/13/21 17:20 21:54 00:02 WBC RBC Hgb Hct MCV MCHC RDW Plt Count Lymph % (Auto) [place] % (Auto) Lymph # (Auto) [place] # (Auto) Seg Neutrophils % Seg Neuts % (Manual) Lymphocytes % (Manual) Monocytes % (Manual) Nucleated RBC % Seg Neutrophils # Seg Neutrophils # Man Lymphocytes # (Manual) Monocytes # (Manual) PT INR APTT D-Dimer Heparin Anti-Xa Level ABG pH 7.238 L POC ABG pCO2 71.9 H POC ABG pO2 53.6 L ABG pO2 ABG HCO3 ABG O2 Saturation ABG Base Excess ABG Hemoglobin ABG Oxyhemoglobin 84.8 L ABG Sodium 134.2 L ABG Potassium 4.9 H ABG Glucose 306 H Oxyhemoglobin Carboxyhemoglobin Sodium Potassium Chloride Carbon Dioxide BUN Creatinine Glucose POC Glucose 374 H 308 H Lactic Acid Calcium Phosphorus Magnesium Ferritin Lactate Dehydrogenase C-Reactive Protein NT-Pro-B Natriuret Pep Total Protein Albumin Triglycerides Arterial Blood Glucose 306 H Urine pH Ur Specific [place] Coronavirus (PCR) 03/13/21 03/13/21 03/13/21 05:22 05:44 05:44 WBC 13.9 H RBC Hgb Hct MCV MCHC RDW Plt Count Lymph % (Auto) [place] % (Auto) Lymph # (Auto) [place] # (Auto) Seg Neutrophils % Seg Neuts % (Manual) Lymphocytes % (Manual) Monocytes % (Manual) Nucleated RBC % Seg Neutrophils # Seg Neutrophils # Man Lymphocytes # (Manual) Monocytes # (Manual) PT INR APTT D-Dimer 3567.97 H Heparin Anti-Xa Level ABG pH POC ABG pCO2 POC ABG pO2 ABG pO2 ABG HCO3 ABG O2 Saturation ABG Base Excess ABG Hemoglobin ABG Oxyhemoglobin ABG Sodium ABG Potassium ABG Glucose Oxyhemoglobin Carboxyhemoglobin Sodium Potassium Chloride Carbon Dioxide BUN Creatinine Glucose POC Glucose 316 H Lactic Acid Calcium Phosphorus Magnesium Ferritin Lactate Dehydrogenase C-Reactive Protein NT-Pro-B Natriuret Pep Total Protein Albumin Triglycerides Arterial Blood Glucose Urine pH Ur Specific [place] Coronavirus (PCR) 03/13/21 03/13/21 03/13/21 05:44 05:44 11:15 WBC RBC Hgb Hct MCV MCHC RDW Plt Count Lymph % (Auto) [place] % (Auto) Lymph # (Auto) [place] # (Auto) Seg Neutrophils % Seg Neuts % (Manual) Lymphocytes % (Manual) Monocytes % (Manual) Nucleated RBC % Seg Neutrophils # Seg Neutrophils # Man Lymphocytes # (Manual) Monocytes # (Manual) PT INR APTT D-Dimer Heparin Anti-Xa Level ABG pH 7.310 L POC ABG pCO2 POC ABG pO2 ABG pO2 52.3 L ABG HCO3 34.1 H ABG O2 Saturation 86.8 L ABG Base Excess 5.5 H ABG Hemoglobin 13.8 L ABG Oxyhemoglobin ABG Sodium ABG Potassium ABG Glucose Oxyhemoglobin 85.1 L Carboxyhemoglobin Sodium Potassium Chloride Carbon Dioxide BUN Creatinine Glucose POC Glucose Lactic Acid Calcium Phosphorus Magnesium Ferritin 858.7 H Lactate Dehydrogenase 348 H C-Reactive Protein 2.80 H NT-Pro-B Natriuret Pep Total Protein Albumin Triglycerides Arterial Blood Glucose Urine pH Ur Specific [place] Coronavirus (PCR) 03/13/21 03/13/21 03/13/21 11:21 15:47 19:23 WBC RBC Hgb Hct MCV MCHC RDW Plt Count Lymph % (Auto) [place] % (Auto) Lymph # (Auto) [place] # (Auto) Seg Neutrophils % Seg Neuts % (Manual) Lymphocytes % (Manual) Monocytes % (Manual) Nucleated RBC % Seg Neutrophils # Seg Neutrophils # Man Lymphocytes # (Manual) Monocytes # (Manual) PT INR APTT D-Dimer Heparin Anti-Xa Level ABG pH POC ABG pCO2 POC ABG pO2 ABG pO2 ABG HCO3 ABG O2 Saturation ABG Base Excess ABG Hemoglobin ABG Oxyhemoglobin ABG Sodium ABG Potassium ABG Glucose Oxyhemoglobin Carboxyhemoglobin Sodium 136 L Potassium 5.9 H Chloride Carbon Dioxide BUN 50 H Creatinine Glucose 397 H POC Glucose 322 H 317 H Lactic Acid Calcium Phosphorus Magnesium Ferritin Lactate Dehydrogenase C-Reactive Protein NT-Pro-B Natriuret Pep Total Protein Albumin Triglycerides Arterial Blood Glucose Urine pH Ur Specific [place] Coronavirus (PCR) 03/13/21 03/14/21 03/14/21 23:46 05:32 05:50 WBC 11.6 H RBC Hgb Hct MCV MCHC RDW Plt Count Lymph % (Auto) [place] % (Auto) Lymph # (Auto) [place] # (Auto) Seg Neutrophils % Seg Neuts % (Manual) Lymphocytes % (Manual) Monocytes % (Manual) Nucleated RBC % Seg Neutrophils # Seg Neutrophils # Man Lymphocytes # (Manual) Monocytes # (Manual) PT INR APTT D-Dimer Heparin Anti-Xa Level ABG pH POC ABG pCO2 POC ABG pO2 ABG pO2 ABG HCO3 ABG O2 Saturation ABG Base Excess ABG Hemoglobin ABG Oxyhemoglobin ABG Sodium ABG Potassium ABG Glucose Oxyhemoglobin Carboxyhemoglobin Sodium Potassium Chloride Carbon Dioxide BUN Creatinine Glucose POC Glucose 332 H 316 H Lactic Acid Calcium Phosphorus Magnesium Ferritin Lactate Dehydrogenase C-Reactive Protein NT-Pro-B Natriuret Pep Total Protein Albumin Triglycerides Arterial Blood Glucose Urine pH Ur Specific [place] Coronavirus (PCR) 03/14/21 03/14/21 03/14/21 05:50 11:33 16:53 WBC RBC Hgb Hct MCV MCHC RDW Plt Count Lymph % (Auto) [place] % (Auto) Lymph # (Auto) [place] # (Auto) Seg Neutrophils % Seg Neuts % (Manual) Lymphocytes % (Manual) Monocytes % (Manual) Nucleated RBC % Seg Neutrophils # Seg Neutrophils # Man Lymphocytes # (Manual) Monocytes # (Manual) PT INR APTT D-Dimer Heparin Anti-Xa Level ABG pH POC ABG pCO2 POC ABG pO2 ABG pO2 ABG HCO3 ABG O2 Saturation ABG Base Excess ABG Hemoglobin ABG Oxyhemoglobin ABG Sodium ABG Potassium ABG Glucose Oxyhemoglobin Carboxyhemoglobin Sodium Potassium 5.9 H Chloride Carbon Dioxide 31 H BUN 48 H Creatinine Glucose 380 H POC Glucose 315 H 235 H Lactic Acid Calcium Phosphorus Magnesium 3.40 H Ferritin Lactate Dehydrogenase C-Reactive Protein NT-Pro-B Natriuret Pep Total Protein Albumin Triglycerides Arterial Blood Glucose Urine pH Ur Specific [place] Coronavirus (PCR) 03/14/21 03/14/21 03/15/21 18:34 23:27 01:22 WBC RBC Hgb Hct 46.3 H MCV MCHC RDW Plt Count Lymph % (Auto) [place] % (Auto) Lymph # (Auto) [place] # (Auto) Seg Neutrophils % Seg Neuts % (Manual) Lymphocytes % (Manual) Monocytes % (Manual) Nucleated RBC % Seg Neutrophils # Seg Neutrophils # Man Lymphocytes # (Manual) Monocytes # (Manual) PT INR APTT D-Dimer Heparin Anti-Xa Level ABG pH POC ABG pCO2 POC ABG pO2 ABG pO2 ABG HCO3 ABG O2 Saturation ABG Base Excess ABG Hemoglobin ABG Oxyhemoglobin ABG Sodium ABG Potassium ABG Glucose Oxyhemoglobin Carboxyhemoglobin Sodium 146 H Potassium Chloride Carbon Dioxide 34 H BUN 49 H Creatinine Glucose 285 H POC Glucose 203 H Lactic Acid Calcium Phosphorus Magnesium Ferritin Lactate Dehydrogenase C-Reactive Protein NT-Pro-B Natriuret Pep Total Protein Albumin Triglycerides Arterial Blood Glucose Urine pH Ur Specific [place] Coronavirus (PCR) 03/15/21 03/15/21 03/15/21 04:00 06:06 06:06 WBC RBC Hgb Hct MCV MCHC RDW Plt Count Lymph % (Auto) [place] % (Auto) Lymph # (Auto) [place] # (Auto) Seg Neutrophils % Seg Neuts % (Manual) Lymphocytes % (Manual) Monocytes % (Manual) Nucleated RBC % Seg Neutrophils # Seg Neutrophils # Man Lymphocytes # (Manual) Monocytes # (Manual) PT INR APTT D-Dimer 1781.79 H Heparin Anti-Xa Level ABG pH POC ABG pCO2 POC ABG pO2 ABG pO2 ABG HCO3 ABG O2 Saturation ABG Base Excess ABG Hemoglobin ABG Oxyhemoglobin ABG Sodium ABG Potassium ABG Glucose Oxyhemoglobin Carboxyhemoglobin Sodium 148 H Potassium 5.7 H D Chloride 108.0 H Carbon Dioxide 31 H BUN 46 H Creatinine Glucose 139 H POC Glucose Lactic Acid Calcium Phosphorus 4.80 H D Magnesium 3.00 H Ferritin 976.4 H Lactate Dehydrogenase 630 H C-Reactive Protein NT-Pro-B Natriuret Pep Total Protein Albumin Triglycerides Arterial Blood Glucose Urine pH Ur Specific [place] Coronavirus (PCR) 03/15/21 03/15/21 03/15/21 11:56 14:05 17:09 WBC RBC Hgb Hct MCV MCHC RDW Plt Count Lymph % (Auto) [place] % (Auto) Lymph # (Auto) [place] # (Auto) Seg Neutrophils % Seg Neuts % (Manual) Lymphocytes % (Manual) Monocytes % (Manual) Nucleated RBC % Seg Neutrophils # Seg Neutrophils # Man Lymphocytes # (Manual) Monocytes # (Manual) PT INR APTT D-Dimer Heparin Anti-Xa Level ABG pH POC ABG pCO2 POC ABG pO2 ABG pO2 52.1 L ABG HCO3 36.6 H ABG O2 Saturation 87.6 L ABG Base Excess 9.5 H ABG Hemoglobin ABG Oxyhemoglobin ABG Sodium ABG Potassium ABG Glucose Oxyhemoglobin 85.7 L Carboxyhemoglobin Sodium Potassium Chloride Carbon Dioxide BUN Creatinine Glucose POC Glucose 219 H 263 H Lactic Acid Calcium Phosphorus Magnesium Ferritin Lactate Dehydrogenase C-Reactive Protein NT-Pro-B Natriuret Pep Total Protein Albumin Triglycerides Arterial Blood Glucose Urine pH Ur Specific [place] Coronavirus (PCR) 03/16/21 03/16/21 03/16/21 00:32 04:11 04:11 WBC 11.9 H RBC Hgb Hct MCV MCHC 30 L RDW Plt Count Lymph % (Auto) [place] % (Auto) Lymph # (Auto) [place] # (Auto) Seg Neutrophils % Seg Neuts % (Manual) Lymphocytes % (Manual) Monocytes % (Manual) Nucleated RBC % Seg Neutrophils # Seg Neutrophils # Man Lymphocytes # (Manual) Monocytes # (Manual) PT INR APTT D-Dimer Heparin Anti-Xa Level ABG pH POC ABG pCO2 POC ABG pO2 ABG pO2 ABG HCO3 ABG O2 Saturation ABG Base Excess ABG Hemoglobin ABG Oxyhemoglobin ABG Sodium ABG Potassium ABG Glucose Oxyhemoglobin Carboxyhemoglobin Sodium 151 H Potassium Chloride Carbon Dioxide 35 H BUN 48 H Creatinine Glucose 152 H POC Glucose 165 H Lactic Acid Calcium Phosphorus Magnesium Ferritin Lactate Dehydrogenase C-Reactive Protein NT-Pro-B Natriuret Pep Total Protein Albumin Triglycerides Arterial Blood Glucose Urine pH Ur Specific [place] Coronavirus (PCR) 03/16/21 03/16/21 03/16/21 04:11 05:26 11:35 WBC RBC Hgb Hct MCV MCHC RDW Plt Count Lymph % (Auto) [place] % (Auto) Lymph # (Auto) [place] # (Auto) Seg Neutrophils % Seg Neuts % (Manual) Lymphocytes % (Manual) Monocytes % (Manual) Nucleated RBC % Seg Neutrophils # Seg Neutrophils # Man Lymphocytes # (Manual) Monocytes # (Manual) PT INR APTT D-Dimer Heparin Anti-Xa Level ABG pH POC ABG pCO2 POC ABG pO2 ABG pO2 ABG HCO3 ABG O2 Saturation ABG Base Excess ABG Hemoglobin ABG Oxyhemoglobin ABG Sodium ABG Potassium ABG Glucose Oxyhemoglobin Carboxyhemoglobin Sodium Potassium Chloride Carbon Dioxide BUN Creatinine Glucose POC Glucose 162 H 187 H Lactic Acid Calcium Phosphorus Magnesium Ferritin Lactate Dehydrogenase C-Reactive Protein NT-Pro-B Natriuret Pep Total Protein Albumin Triglycerides 267 H Arterial Blood Glucose Urine pH Ur Specific [place] Coronavirus (PCR) 03/16/21 03/16/21 03/16/21 17:29 22:25 23:22 WBC RBC Hgb Hct MCV MCHC RDW Plt Count Lymph % (Auto) [place] % (Auto) Lymph # (Auto) [place] # (Auto) Seg Neutrophils % Seg Neuts % (Manual) Lymphocytes % (Manual) Monocytes % (Manual) Nucleated RBC % Seg Neutrophils # Seg Neutrophils # Man Lymphocytes # (Manual) Monocytes # (Manual) PT INR APTT D-Dimer Heparin Anti-Xa Level ABG pH POC ABG pCO2 POC ABG pO2 ABG pO2 ABG HCO3 ABG O2 Saturation ABG Base Excess ABG Hemoglobin ABG Oxyhemoglobin ABG Sodium ABG Potassium ABG Glucose Oxyhemoglobin Carboxyhemoglobin Sodium Potassium Chloride Carbon Dioxide BUN Creatinine Glucose POC Glucose 237 H 165 H 189 H Lactic Acid Calcium Phosphorus Magnesium Ferritin Lactate Dehydrogenase C-Reactive Protein NT-Pro-B Natriuret Pep Total Protein Albumin Triglycerides Arterial Blood Glucose Urine pH Ur Specific [place] Coronavirus (PCR) 03/17/21 03/17/21 03/17/21 04:40 04:40 04:40 WBC 14.1 H RBC Hgb Hct MCV MCHC RDW 15.3 H Plt Count Lymph % (Auto) 12.6 L [place] % (Auto) 11.3 H Lymph # (Auto) [place] # (Auto) 1.6 H Seg Neutrophils % 74.9 H Seg Neuts % (Manual) Lymphocytes % (Manual) Monocytes % (Manual) Nucleated RBC % Seg Neutrophils # 10.5 H Seg Neutrophils # Man Lymphocytes # (Manual) Monocytes # (Manual) PT INR APTT D-Dimer 1359.12 H Heparin Anti-Xa Level ABG pH POC ABG pCO2 POC ABG pO2 ABG pO2 ABG HCO3 ABG O2 Saturation ABG Base Excess ABG Hemoglobin ABG Oxyhemoglobin ABG Sodium ABG Potassium ABG Glucose Oxyhemoglobin Carboxyhemoglobin Sodium 148 H Potassium Chloride 107.5 H Carbon Dioxide 33 H BUN 42 H Creatinine Glucose 183 H POC Glucose Lactic Acid Calcium Phosphorus Magnesium 2.70 H Ferritin Lactate Dehydrogenase C-Reactive Protein NT-Pro-B Natriuret Pep Total Protein Albumin Triglycerides Arterial Blood Glucose Urine pH Ur Specific [place] Coronavirus (PCR) 03/17/21 03/17/21 03/17/21 05:53 11:05 11:51 WBC RBC Hgb Hct MCV MCHC RDW Plt Count Lymph % (Auto) [place] % (Auto) Lymph # (Auto) [place] # (Auto) Seg Neutrophils % Seg Neuts % (Manual) Lymphocytes % (Manual) Monocytes % (Manual) Nucleated RBC % Seg Neutrophils # Seg Neutrophils # Man Lymphocytes # (Manual) Monocytes # (Manual) PT INR APTT D-Dimer Heparin Anti-Xa Level ABG pH POC ABG pCO2 POC ABG pO2 ABG pO2 ABG HCO3 35.7 H ABG O2 Saturation ABG Base Excess 8.7 H ABG Hemoglobin ABG Oxyhemoglobin ABG Sodium ABG Potassium ABG Glucose Oxyhemoglobin 94.2 L Carboxyhemoglobin Sodium Potassium Chloride Carbon Dioxide BUN Creatinine Glucose POC Glucose 176 H 197 H Lactic Acid Calcium Phosphorus Magnesium Ferritin Lactate Dehydrogenase C-Reactive Protein NT-Pro-B Natriuret Pep Total Protein Albumin Triglycerides Arterial Blood Glucose Urine pH Ur Specific [place] Coronavirus (PCR) 03/17/21 03/17/21 03/17/21 16:54 21:10 23:33 WBC RBC Hgb Hct MCV MCHC RDW Plt Count Lymph % (Auto) [place] % (Auto) Lymph # (Auto) [place] # (Auto) Seg Neutrophils % Seg Neuts % (Manual) Lymphocytes % (Manual) Monocytes % (Manual) Nucleated RBC % Seg Neutrophils # Seg Neutrophils # Man Lymphocytes # (Manual) Monocytes # (Manual) PT INR APTT D-Dimer Heparin Anti-Xa Level ABG pH POC ABG pCO2 POC ABG pO2 ABG pO2 ABG HCO3 ABG O2 Saturation ABG Base Excess ABG Hemoglobin ABG Oxyhemoglobin ABG Sodium ABG Potassium ABG Glucose Oxyhemoglobin Carboxyhemoglobin Sodium Potassium Chloride Carbon Dioxide BUN Creatinine Glucose POC Glucose 135 H 160 H 138 H Lactic Acid Calcium Phosphorus Magnesium Ferritin Lactate Dehydrogenase C-Reactive Protein NT-Pro-B Natriuret Pep Total Protein Albumin Triglycerides Arterial Blood Glucose Urine pH Ur Specific [place] Coronavirus (PCR) 03/18/21 03/18/21 03/18/21 04:18 04:50 05:43 WBC RBC Hgb Hct MCV MCHC RDW Plt Count Lymph % (Auto) [place] % (Auto) Lymph # (Auto) [place] # (Auto) Seg Neutrophils % Seg Neuts % (Manual) Lymphocytes % (Manual) Monocytes % (Manual) Nucleated RBC % Seg Neutrophils # Seg Neutrophils # Man Lymphocytes # (Manual) Monocytes # (Manual) PT INR APTT D-Dimer Heparin Anti-Xa Level ABG pH POC ABG pCO2 POC ABG pO2 ABG pO2 59.8 L ABG HCO3 36.5 H ABG O2 Saturation 90.7 L ABG Base Excess 9.4 H ABG Hemoglobin 12.0 L ABG Oxyhemoglobin ABG Sodium ABG Potassium ABG Glucose Oxyhemoglobin 88.9 L Carboxyhemoglobin Sodium Potassium Chloride 107.2 H Carbon Dioxide 34 H BUN 38 H Creatinine 0.7 L Glucose 136 H POC Glucose 128 H Lactic Acid Calcium Phosphorus Magnesium Ferritin Lactate Dehydrogenase C-Reactive Protein NT-Pro-B Natriuret Pep Total Protein Albumin Triglycerides Arterial Blood Glucose Urine pH Ur Specific [place] Coronavirus (PCR) 03/18/21 03/18/21 03/18/21 11:20 17:35 23:35 WBC RBC Hgb Hct MCV MCHC RDW Plt Count Lymph % (Auto) [place] % (Auto) Lymph # (Auto) [place] # (Auto) Seg Neutrophils % Seg Neuts % (Manual) Lymphocytes % (Manual) Monocytes % (Manual) Nucleated RBC % Seg Neutrophils # Seg Neutrophils # Man Lymphocytes # (Manual) Monocytes # (Manual) PT INR APTT D-Dimer Heparin Anti-Xa Level ABG pH POC ABG pCO2 POC ABG pO2 ABG pO2 70.7 L ABG HCO3 33.6 H ABG O2 Saturation ABG Base Excess 8.0 H ABG Hemoglobin ABG Oxyhemoglobin ABG Sodium ABG Potassium ABG Glucose Oxyhemoglobin 93.7 L Carboxyhemoglobin Sodium Potassium Chloride Carbon Dioxide BUN Creatinine Glucose POC Glucose 189 H 144 H Lactic Acid Calcium Phosphorus Magnesium Ferritin Lactate Dehydrogenase C-Reactive Protein NT-Pro-B Natriuret Pep Total Protein Albumin Triglycerides Arterial Blood Glucose Urine pH Ur Specific [place] Coronavirus (PCR) 03/19/21 03/19/21 03/19/21 02:35 04:20 04:20 WBC 14.0 H RBC Hgb Hct MCV MCHC RDW Plt Count Lymph % (Auto) [place] % (Auto) Lymph # (Auto) [place] # (Auto) Seg Neutrophils % Seg Neuts % (Manual) Lymphocytes % (Manual) Monocytes % (Manual) Nucleated RBC % Seg Neutrophils # Seg Neutrophils # Man Lymphocytes # (Manual) Monocytes # (Manual) PT INR APTT D-Dimer Heparin Anti-Xa Level ABG pH POC ABG pCO2 POC ABG pO2 ABG pO2 ABG HCO3 32.0 H ABG O2 Saturation ABG Base Excess 5.2 H ABG Hemoglobin 13.6 L ABG Oxyhemoglobin ABG Sodium ABG Potassium ABG Glucose Oxyhemoglobin 94.6 L Carboxyhemoglobin Sodium 146 H Potassium Chloride 109.3 H Carbon Dioxide BUN 36 H Creatinine Glucose 203 H POC Glucose Lactic Acid Calcium Phosphorus Magnesium Ferritin Lactate Dehydrogenase C-Reactive Protein NT-Pro-B Natriuret Pep Total Protein Albumin Triglycerides 254 H Arterial Blood Glucose Urine pH Ur Specific [place] Coronavirus (PCR) 03/19/21 03/19/21 03/19/21 05:45 11:36 23:51 WBC RBC Hgb Hct MCV MCHC RDW Plt Count Lymph % (Auto) [place] % (Auto) Lymph # (Auto) [place] # (Auto) Seg Neutrophils % Seg Neuts % (Manual) Lymphocytes % (Manual) Monocytes % (Manual) Nucleated RBC % Seg Neutrophils # Seg Neutrophils # Man Lymphocytes # (Manual) Monocytes # (Manual) PT INR APTT D-Dimer Heparin Anti-Xa Level ABG pH POC ABG pCO2 POC ABG pO2 ABG pO2 ABG HCO3 ABG O2 Saturation ABG Base Excess ABG Hemoglobin ABG Oxyhemoglobin ABG Sodium ABG Potassium ABG Glucose Oxyhemoglobin Carboxyhemoglobin Sodium Potassium Chloride Carbon Dioxide BUN Creatinine Glucose POC Glucose 164 H 172 H 140 H Lactic Acid Calcium Phosphorus Magnesium Ferritin Lactate Dehydrogenase C-Reactive Protein NT-Pro-B Natriuret Pep Total Protein Albumin Triglycerides Arterial Blood Glucose Urine pH Ur Specific [place] Coronavirus (PCR) 03/20/21 03/20/21 03/20/21 03:29 04:45 04:45 WBC RBC Hgb Hct MCV 95 H MCHC RDW 15.7 H Plt Count Lymph % (Auto) [place] % (Auto) Lymph # (Auto) [place] # (Auto) Seg Neutrophils % Seg Neuts % (Manual) Lymphocytes % (Manual) Monocytes % (Manual) Nucleated RBC % Seg Neutrophils # Seg Neutrophils # Man Lymphocytes # (Manual) Monocytes # (Manual) PT INR APTT D-Dimer Heparin Anti-Xa Level ABG pH 7.349 L POC ABG pCO2 POC ABG pO2 ABG pO2 ABG HCO3 33.7 H ABG O2 Saturation ABG Base Excess 6.4 H ABG Hemoglobin 11.8 L ABG Oxyhemoglobin ABG Sodium ABG Potassium ABG Glucose Oxyhemoglobin 93.9 L Carboxyhemoglobin Sodium 146 H Potassium 5.5 H Chloride 111.1 H Carbon Dioxide BUN 34 H Creatinine 0.7 L Glucose 145 H POC Glucose Lactic Acid Calcium Phosphorus Magnesium 2.50 H Ferritin Lactate Dehydrogenase C-Reactive Protein NT-Pro-B Natriuret Pep Total Protein Albumin Triglycerides Arterial Blood Glucose Urine pH Ur Specific [place] Coronavirus (PCR) 03/20/21 03/20/21 03/20/21 05:41 09:08 11:54 WBC RBC Hgb Hct MCV MCHC RDW Plt Count Lymph % (Auto) [place] % (Auto) Lymph # (Auto) [place] # (Auto) Seg Neutrophils % Seg Neuts % (Manual) Lymphocytes % (Manual) Monocytes % (Manual) Nucleated RBC % Seg Neutrophils # Seg Neutrophils # Man Lymphocytes # (Manual) Monocytes # (Manual) PT INR APTT D-Dimer Heparin Anti-Xa Level ABG pH POC ABG pCO2 POC ABG pO2 ABG pO2 ABG HCO3 ABG O2 Saturation ABG Base Excess ABG Hemoglobin ABG Oxyhemoglobin ABG Sodium ABG Potassium ABG Glucose Oxyhemoglobin Carboxyhemoglobin Sodium Potassium Chloride Carbon Dioxide BUN Creatinine Glucose POC Glucose 108 H 132 H 162 H Lactic Acid Calcium Phosphorus Magnesium Ferritin Lactate Dehydrogenase C-Reactive Protein NT-Pro-B Natriuret Pep Total Protein Albumin Triglycerides Arterial Blood Glucose Urine pH Ur Specific [place] Coronavirus (PCR) 03/20/21 03/21/21 03/21/21 17:28 00:31 04:44 WBC RBC Hgb Hct MCV MCHC RDW Plt Count Lymph % (Auto) [place] % (Auto) Lymph # (Auto) [place] # (Auto) Seg Neutrophils % Seg Neuts % (Manual) Lymphocytes % (Manual) Monocytes % (Manual) Nucleated RBC % Seg Neutrophils # Seg Neutrophils # Man Lymphocytes # (Manual) Monocytes # (Manual) PT INR APTT D-Dimer Heparin Anti-Xa Level ABG pH POC ABG pCO2 POC ABG pO2 ABG pO2 ABG HCO3 ABG O2 Saturation ABG Base Excess ABG Hemoglobin ABG Oxyhemoglobin ABG Sodium ABG Potassium ABG Glucose Oxyhemoglobin Carboxyhemoglobin Sodium Potassium Chloride 108.3 H Carbon Dioxide BUN 30 H Creatinine 0.7 L Glucose POC Glucose 160 H 122 H Lactic Acid Calcium Phosphorus Magnesium Ferritin Lactate Dehydrogenase C-Reactive Protein NT-Pro-B Natriuret Pep Total Protein Albumin Triglycerides Arterial Blood Glucose Urine pH Ur Specific [place] Coronavirus (PCR) 03/21/21 03/21/21 03/21/21 09:18 10:09 13:20 WBC RBC Hgb Hct MCV MCHC RDW Plt Count Lymph % (Auto) [place] % (Auto) Lymph # (Auto) [place] # (Auto) Seg Neutrophils % Seg Neuts % (Manual) Lymphocytes % (Manual) Monocytes % (Manual) Nucleated RBC % Seg Neutrophils # Seg Neutrophils # Man Lymphocytes # (Manual) Monocytes # (Manual) PT INR APTT D-Dimer Heparin Anti-Xa Level ABG pH POC ABG pCO2 POC ABG pO2 ABG pO2 60.7 L ABG HCO3 30.6 H ABG O2 Saturation 93.6 L ABG Base Excess 5.3 H ABG Hemoglobin ABG Oxyhemoglobin ABG Sodium ABG Potassium ABG Glucose Oxyhemoglobin 91.7 L Carboxyhemoglobin Sodium Potassium Chloride Carbon Dioxide BUN Creatinine Glucose POC Glucose 169 H 122 H Lactic Acid Calcium Phosphorus Magnesium Ferritin Lactate Dehydrogenase C-Reactive Protein NT-Pro-B Natriuret Pep Total Protein Albumin Triglycerides Arterial Blood Glucose Urine pH Ur Specific [place] Coronavirus (PCR) 03/21/21 03/21/21 03/21/21 17:25 22:41 23:52 WBC RBC Hgb Hct MCV MCHC RDW Plt Count Lymph % (Auto) [place] % (Auto) Lymph # (Auto) [place] # (Auto) Seg Neutrophils % Seg Neuts % (Manual) Lymphocytes % (Manual) Monocytes % (Manual) Nucleated RBC % Seg Neutrophils # Seg Neutrophils # Man Lymphocytes # (Manual) Monocytes # (Manual) PT INR APTT D-Dimer Heparin Anti-Xa Level ABG pH POC ABG pCO2 POC ABG pO2 ABG pO2 ABG HCO3 ABG O2 Saturation ABG Base Excess ABG Hemoglobin ABG Oxyhemoglobin ABG Sodium ABG Potassium ABG Glucose Oxyhemoglobin Carboxyhemoglobin Sodium Potassium Chloride Carbon Dioxide BUN Creatinine Glucose POC Glucose 121 H 139 H 140 H Lactic Acid Calcium Phosphorus Magnesium Ferritin Lactate Dehydrogenase C-Reactive Protein NT-Pro-B Natriuret Pep Total Protein Albumin Triglycerides Arterial Blood Glucose Urine pH Ur Specific [place] Coronavirus (PCR) 03/22/21 03/22/21 03/22/21 05:58 07:26 07:26 WBC RBC Hgb Hct MCV MCHC 31 L RDW 16.1 H Plt Count Lymph % (Auto) [place] % (Auto) Lymph # (Auto) [place] # (Auto) Seg Neutrophils % Seg Neuts % (Manual) Lymphocytes % (Manual) Monocytes % (Manual) Nucleated RBC % Seg Neutrophils # Seg Neutrophils # Man Lymphocytes # (Manual) Monocytes # (Manual) PT INR APTT D-Dimer Heparin Anti-Xa Level ABG pH POC ABG pCO2 POC ABG pO2 ABG pO2 ABG HCO3 ABG O2 Saturation ABG Base Excess ABG Hemoglobin ABG Oxyhemoglobin ABG Sodium ABG Potassium ABG Glucose Oxyhemoglobin Carboxyhemoglobin Sodium Potassium Chloride 108.5 H Carbon Dioxide BUN 44 H Creatinine Glucose 120 H POC Glucose 131 H Lactic Acid Calcium Phosphorus 5.80 H Magnesium 2.80 H Ferritin Lactate Dehydrogenase C-Reactive Protein NT-Pro-B Natriuret Pep Total Protein Albumin Triglycerides 305 H Arterial Blood Glucose Urine pH Ur Specific [place] Coronavirus (PCR) 03/22/21 03/22/21 03/22/21 09:38 11:15 16:01 WBC RBC Hgb Hct MCV MCHC RDW Plt Count Lymph % (Auto) [place] % (Auto) Lymph # (Auto) [place] # (Auto) Seg Neutrophils % Seg Neuts % (Manual) Lymphocytes % (Manual) Monocytes % (Manual) Nucleated RBC % Seg Neutrophils # Seg Neutrophils # Man Lymphocytes # (Manual) Monocytes # (Manual) PT INR APTT D-Dimer Heparin Anti-Xa Level ABG pH POC ABG pCO2 POC ABG pO2 ABG pO2 70.0 L ABG HCO3 30.0 H ABG O2 Saturation 94.6 L ABG Base Excess 3.6 H ABG Hemoglobin 13.5 L ABG Oxyhemoglobin ABG Sodium ABG Potassium ABG Glucose Oxyhemoglobin 92.5 L Carboxyhemoglobin Sodium Potassium Chloride Carbon Dioxide BUN Creatinine Glucose POC Glucose 186 H 148 H Lactic Acid Calcium Phosphorus Magnesium Ferritin Lactate Dehydrogenase C-Reactive Protein NT-Pro-B Natriuret Pep Total Protein Albumin Triglycerides Arterial Blood Glucose Urine pH Ur Specific [place] Coronavirus (PCR) 03/22/21 03/22/21 03/23/21 21:13 23:48 07:04 WBC 11.7 H RBC Hgb Hct MCV 95 H MCHC RDW 16.1 H Plt Count Lymph % (Auto) [place] % (Auto) Lymph # (Auto) [place] # (Auto) Seg Neutrophils % Seg Neuts % (Manual) Lymphocytes % (Manual) Monocytes % (Manual) Nucleated RBC % Seg Neutrophils # Seg Neutrophils # Man Lymphocytes # (Manual) Monocytes # (Manual) PT INR APTT D-Dimer Heparin Anti-Xa Level ABG pH POC ABG pCO2 POC ABG pO2 ABG pO2 ABG HCO3 ABG O2 Saturation ABG Base Excess ABG Hemoglobin ABG Oxyhemoglobin ABG Sodium ABG Potassium ABG Glucose Oxyhemoglobin Carboxyhemoglobin Sodium Potassium Chloride Carbon Dioxide BUN Creatinine Glucose POC Glucose 121 H 114 H Lactic Acid Calcium Phosphorus Magnesium Ferritin Lactate Dehydrogenase C-Reactive Protein NT-Pro-B Natriuret Pep Total Protein Albumin Triglycerides Arterial Blood Glucose Urine pH Ur Specific [place] Coronavirus (PCR) 03/23/21 03/23/21 03/23/21 07:04 08:35 11:19 WBC RBC Hgb Hct MCV MCHC RDW Plt Count Lymph % (Auto) [place] % (Auto) Lymph # (Auto) [place] # (Auto) Seg Neutrophils % Seg Neuts % (Manual) Lymphocytes % (Manual) Monocytes % (Manual) Nucleated RBC % Seg Neutrophils # Seg Neutrophils # Man Lymphocytes # (Manual) Monocytes # (Manual) PT INR APTT D-Dimer Heparin Anti-Xa Level ABG pH 7.345 L POC ABG pCO2 POC ABG pO2 ABG pO2 167.9 H ABG HCO3 32.2 H ABG O2 Saturation ABG Base Excess 4.8 H ABG Hemoglobin 13.4 L ABG Oxyhemoglobin ABG Sodium ABG Potassium ABG Glucose Oxyhemoglobin Carboxyhemoglobin Sodium 148 H Potassium Chloride 111.3 H Carbon Dioxide 31 H BUN 31 H Creatinine Glucose 131 H POC Glucose 165 H Lactic Acid Calcium Phosphorus Magnesium 2.50 H Ferritin Lactate Dehydrogenase C-Reactive Protein NT-Pro-B Natriuret Pep Total Protein Albumin Triglycerides Arterial Blood Glucose Urine pH Ur Specific [place] Coronavirus (PCR) 03/23/21 03/23/21 03/24/21 16:48 20:52 00:07 WBC RBC Hgb Hct MCV MCHC RDW Plt Count Lymph % (Auto) [place] % (Auto) Lymph # (Auto) [place] # (Auto) Seg Neutrophils % Seg Neuts % (Manual) Lymphocytes % (Manual) Monocytes % (Manual) Nucleated RBC % Seg Neutrophils # Seg Neutrophils # Man Lymphocytes # (Manual) Monocytes # (Manual) PT INR APTT D-Dimer Heparin Anti-Xa Level ABG pH POC ABG pCO2 POC ABG pO2 ABG pO2 ABG HCO3 ABG O2 Saturation ABG Base Excess ABG Hemoglobin ABG Oxyhemoglobin ABG Sodium ABG Potassium ABG Glucose Oxyhemoglobin Carboxyhemoglobin Sodium Potassium Chloride Carbon Dioxide BUN Creatinine Glucose POC Glucose 160 H 127 H 147 H Lactic Acid Calcium Phosphorus Magnesium Ferritin Lactate Dehydrogenase C-Reactive Protein NT-Pro-B Natriuret Pep Total Protein Albumin Triglycerides Arterial Blood Glucose Urine pH Ur Specific [place] Coronavirus (PCR) 03/24/21 03/24/21 03/24/21 04:34 04:34 05:20 WBC 13.3 H RBC Hgb Hct MCV MCHC 31 L RDW 16.1 H Plt Count Lymph % (Auto) [place] % (Auto) Lymph # (Auto) [place] # (Auto) Seg Neutrophils % Seg Neuts % (Manual) Lymphocytes % (Manual) Monocytes % (Manual) Nucleated RBC % Seg Neutrophils # Seg Neutrophils # Man Lymphocytes # (Manual) Monocytes # (Manual) PT INR APTT D-Dimer Heparin Anti-Xa Level ABG pH POC ABG pCO2 POC ABG pO2 ABG pO2 ABG HCO3 ABG O2 Saturation ABG Base Excess ABG Hemoglobin ABG Oxyhemoglobin ABG Sodium ABG Potassium ABG Glucose Oxyhemoglobin Carboxyhemoglobin Sodium Potassium 5.2 H Chloride Carbon Dioxide BUN 28 H Creatinine 0.7 L Glucose 152 H POC Glucose 141 H Lactic Acid Calcium Phosphorus Magnesium Ferritin Lactate Dehydrogenase C-Reactive Protein NT-Pro-B Natriuret Pep Total Protein Albumin Triglycerides Arterial Blood Glucose Urine pH Ur Specific [place] Coronavirus (PCR) 03/24/21 03/24/21 03/24/21 09:40 11:38 16:45 WBC RBC Hgb Hct MCV MCHC RDW Plt Count Lymph % (Auto) [place] % (Auto) Lymph # (Auto) [place] # (Auto) Seg Neutrophils % Seg Neuts % (Manual) Lymphocytes % (Manual) Monocytes % (Manual) Nucleated RBC % Seg Neutrophils # Seg Neutrophils # Man Lymphocytes # (Manual) Monocytes # (Manual) PT INR APTT D-Dimer Heparin Anti-Xa Level ABG pH POC ABG pCO2 POC ABG pO2 ABG pO2 ABG HCO3 ABG O2 Saturation ABG Base Excess ABG Hemoglobin ABG Oxyhemoglobin ABG Sodium ABG Potassium ABG Glucose Oxyhemoglobin Carboxyhemoglobin Sodium Potassium Chloride Carbon Dioxide BUN Creatinine Glucose POC Glucose 126 H 136 H 118 H Lactic Acid Calcium Phosphorus Magnesium Ferritin Lactate Dehydrogenase C-Reactive Protein NT-Pro-B Natriuret Pep Total Protein Albumin Triglycerides Arterial Blood Glucose Urine pH Ur Specific [place] Coronavirus (PCR) 03/24/21 03/24/21 03/25/21 21:03 23:49 04:32 WBC RBC Hgb Hct MCV MCHC RDW 16.1 H Plt Count 121 L Lymph % (Auto) [place] % (Auto) Lymph # (Auto) [place] # (Auto) Seg Neutrophils % Seg Neuts % (Manual) Lymphocytes % (Manual) Monocytes % (Manual) Nucleated RBC % Seg Neutrophils # Seg Neutrophils # Man Lymphocytes # (Manual) Monocytes # (Manual) PT INR APTT D-Dimer Heparin Anti-Xa Level ABG pH POC ABG pCO2 POC ABG pO2 ABG pO2 ABG HCO3 ABG O2 Saturation ABG Base Excess ABG Hemoglobin ABG Oxyhemoglobin ABG Sodium ABG Potassium ABG Glucose Oxyhemoglobin Carboxyhemoglobin Sodium Potassium Chloride Carbon Dioxide BUN Creatinine Glucose POC Glucose 116 H 125 H Lactic Acid Calcium Phosphorus Magnesium Ferritin Lactate Dehydrogenase C-Reactive Protein NT-Pro-B Natriuret Pep Total Protein Albumin Triglycerides Arterial Blood Glucose Urine pH Ur Specific [place] Coronavirus (PCR) 03/25/21 03/25/21 03/25/21 04:32 05:21 09:29 WBC RBC Hgb Hct MCV MCHC RDW Plt Count Lymph % (Auto) [place] % (Auto) Lymph # (Auto) [place] # (Auto) Seg Neutrophils % Seg Neuts % (Manual) Lymphocytes % (Manual) Monocytes % (Manual) Nucleated RBC % Seg Neutrophils # Seg Neutrophils # Man Lymphocytes # (Manual) Monocytes # (Manual) PT INR APTT D-Dimer Heparin Anti-Xa Level ABG pH POC ABG pCO2 POC ABG pO2 ABG pO2 ABG HCO3 ABG O2 Saturation ABG Base Excess ABG Hemoglobin ABG Oxyhemoglobin ABG Sodium ABG Potassium ABG Glucose Oxyhemoglobin Carboxyhemoglobin Sodium 135 L D Potassium Chloride Carbon Dioxide BUN 25 H Creatinine 0.7 L Glucose 168 H POC Glucose 149 H 115 H Lactic Acid Calcium Phosphorus Magnesium Ferritin Lactate Dehydrogenase C-Reactive Protein NT-Pro-B Natriuret Pep Total Protein Albumin Triglycerides Arterial Blood Glucose Urine pH Ur Specific [place] Coronavirus (PCR) 03/25/21 03/25/21 03/25/21 12:26 12:35 23:53 WBC RBC Hgb Hct MCV MCHC RDW Plt Count Lymph % (Auto) [place] % (Auto) Lymph # (Auto) [place] # (Auto) Seg Neutrophils % Seg Neuts % (Manual) Lymphocytes % (Manual) Monocytes % (Manual) Nucleated RBC % Seg Neutrophils # Seg Neutrophils # Man Lymphocytes # (Manual) Monocytes # (Manual) PT INR APTT D-Dimer Heparin Anti-Xa Level ABG pH POC ABG pCO2 POC ABG pO2 ABG pO2 100.5 H ABG HCO3 33.6 H ABG O2 Saturation ABG Base Excess 6.4 H ABG Hemoglobin 12.0 L ABG Oxyhemoglobin ABG Sodium ABG Potassium ABG Glucose Oxyhemoglobin Carboxyhemoglobin Sodium Potassium Chloride Carbon Dioxide BUN Creatinine Glucose POC Glucose 108 H 137 H Lactic Acid Calcium Phosphorus Magnesium Ferritin Lactate Dehydrogenase C-Reactive Protein NT-Pro-B Natriuret Pep Total Protein Albumin Triglycerides Arterial Blood Glucose Urine pH Ur Specific [place] Coronavirus (PCR) 03/26/21 03/26/21 03/26/21 05:14 07:09 07:09 WBC RBC Hgb Hct MCV MCHC RDW 16.5 H Plt Count 139 L Lymph % (Auto) [place] % (Auto) Lymph # (Auto) [place] # (Auto) Seg Neutrophils % Seg Neuts % (Manual) Lymphocytes % (Manual) Monocytes % (Manual) Nucleated RBC % Seg Neutrophils # Seg Neutrophils # Man Lymphocytes # (Manual) Monocytes # (Manual) PT INR APTT D-Dimer Heparin Anti-Xa Level ABG pH POC ABG pCO2 POC ABG pO2 ABG pO2 ABG HCO3 ABG O2 Saturation ABG Base Excess ABG Hemoglobin ABG Oxyhemoglobin ABG Sodium ABG Potassium ABG Glucose Oxyhemoglobin Carboxyhemoglobin Sodium Potassium Chloride Carbon Dioxide BUN 22 H Creatinine 0.7 L Glucose 108 H POC Glucose 116 H Lactic Acid Calcium Phosphorus Magnesium Ferritin Lactate Dehydrogenase C-Reactive Protein NT-Pro-B Natriuret Pep Total Protein Albumin Triglycerides Arterial Blood Glucose Urine pH Ur Specific [place] Coronavirus (PCR) 03/26/21 03/26/21 03/26/21 09:51 11:15 16:59 WBC RBC Hgb Hct MCV MCHC RDW Plt Count Lymph % (Auto) [place] % (Auto) Lymph # (Auto) [place] # (Auto) Seg Neutrophils % Seg Neuts % (Manual) Lymphocytes % (Manual) Monocytes % (Manual) Nucleated RBC % Seg Neutrophils # Seg Neutrophils # Man Lymphocytes # (Manual) Monocytes # (Manual) PT INR APTT D-Dimer Heparin Anti-Xa Level ABG pH POC ABG pCO2 POC ABG pO2 ABG pO2 ABG HCO3 ABG O2 Saturation ABG Base Excess ABG Hemoglobin ABG Oxyhemoglobin ABG Sodium ABG Potassium ABG Glucose Oxyhemoglobin Carboxyhemoglobin Sodium Potassium Chloride Carbon Dioxide BUN Creatinine Glucose POC Glucose 107 H 119 H 174 H Lactic Acid Calcium Phosphorus Magnesium Ferritin Lactate Dehydrogenase C-Reactive Protein NT-Pro-B Natriuret Pep Total Protein Albumin Triglycerides Arterial Blood Glucose Urine pH Ur Specific [place] Coronavirus (PCR) 03/26/21 03/27/21 03/27/21 22:18 07:08 10:28 WBC RBC Hgb Hct MCV 95 H MCHC RDW 16.2 H Plt Count 134 L Lymph % (Auto) [place] % (Auto) Lymph # (Auto) [place] # (Auto) Seg Neutrophils % Seg Neuts % (Manual) Lymphocytes % (Manual) Monocytes % (Manual) Nucleated RBC % Seg Neutrophils # Seg Neutrophils # Man Lymphocytes # (Manual) Monocytes # (Manual) PT INR APTT D-Dimer Heparin Anti-Xa Level ABG pH POC ABG pCO2 POC ABG pO2 ABG pO2 ABG HCO3 ABG O2 Saturation ABG Base Excess ABG Hemoglobin ABG Oxyhemoglobin ABG Sodium ABG Potassium ABG Glucose Oxyhemoglobin Carboxyhemoglobin Sodium Potassium Chloride Carbon Dioxide BUN Creatinine Glucose POC Glucose 107 H 52 L Lactic Acid Calcium Phosphorus Magnesium Ferritin Lactate Dehydrogenase C-Reactive Protein NT-Pro-B Natriuret Pep Total Protein Albumin Triglycerides Arterial Blood Glucose Urine pH Ur Specific [place] Coronavirus (PCR) 03/27/21 03/27/21 03/27/21 10:28 11:45 17:39 WBC RBC Hgb Hct MCV MCHC RDW Plt Count Lymph % (Auto) [place] % (Auto) Lymph # (Auto) [place] # (Auto) Seg Neutrophils % Seg Neuts % (Manual) Lymphocytes % (Manual) Monocytes % (Manual) Nucleated RBC % Seg Neutrophils # Seg Neutrophils # Man Lymphocytes # (Manual) Monocytes # (Manual) PT INR APTT D-Dimer Heparin Anti-Xa Level ABG pH POC ABG pCO2 POC ABG pO2 ABG pO2 ABG HCO3 ABG O2 Saturation ABG Base Excess ABG Hemoglobin ABG Oxyhemoglobin ABG Sodium ABG Potassium ABG Glucose Oxyhemoglobin Carboxyhemoglobin Sodium 136 L Potassium Chloride Carbon Dioxide BUN Creatinine 0.7 L Glucose 150 H POC Glucose 121 H 165 H Lactic Acid Calcium Phosphorus Magnesium Ferritin Lactate Dehydrogenase C-Reactive Protein NT-Pro-B Natriuret Pep Total Protein Albumin Triglycerides Arterial Blood Glucose Urine pH Ur Specific [place] Coronavirus (PCR) 03/28/21 03/28/21 03/28/21 07:14 11:42 18:22 WBC RBC Hgb Hct MCV MCHC RDW 16.4 H Plt Count Lymph % (Auto) [place] % (Auto) Lymph # (Auto) [place] # (Auto) Seg Neutrophils % Seg Neuts % (Manual) Lymphocytes % (Manual) Monocytes % (Manual) Nucleated RBC % Seg Neutrophils # Seg Neutrophils # Man Lymphocytes # (Manual) Monocytes # (Manual) PT INR APTT D-Dimer Heparin Anti-Xa Level ABG pH POC ABG pCO2 POC ABG pO2 ABG pO2 ABG HCO3 ABG O2 Saturation ABG Base Excess ABG Hemoglobin ABG Oxyhemoglobin ABG Sodium ABG Potassium ABG Glucose Oxyhemoglobin Carboxyhemoglobin Sodium Potassium Chloride Carbon Dioxide BUN Creatinine Glucose POC Glucose 145 H 169 H Lactic Acid Calcium Phosphorus Magnesium Ferritin Lactate Dehydrogenase C-Reactive Protein NT-Pro-B Natriuret Pep Total Protein Albumin Triglycerides Arterial Blood Glucose Urine pH Ur Specific [place] Coronavirus (PCR) 03/28/21 03/29/21 03/29/21 23:39 04:50 04:50 WBC RBC Hgb 11.0 L Hct 34.9 L MCV MCHC RDW 15.9 H Plt Count Lymph % (Auto) [place] % (Auto) Lymph # (Auto) [place] # (Auto) Seg Neutrophils % Seg Neuts % (Manual) Lymphocytes % (Manual) Monocytes % (Manual) Nucleated RBC % Seg Neutrophils # Seg Neutrophils # Man Lymphocytes # (Manual) Monocytes # (Manual) PT INR APTT D-Dimer Heparin Anti-Xa Level ABG pH POC ABG pCO2 POC ABG pO2 ABG pO2 ABG HCO3 ABG O2 Saturation ABG Base Excess ABG Hemoglobin ABG Oxyhemoglobin ABG Sodium ABG Potassium ABG Glucose Oxyhemoglobin Carboxyhemoglobin Sodium Potassium Chloride Carbon Dioxide 34 H BUN Creatinine 0.6 L Glucose 152 H POC Glucose 139 H Lactic Acid Calcium Phosphorus Magnesium Ferritin Lactate Dehydrogenase C-Reactive Protein NT-Pro-B Natriuret Pep Total Protein Albumin Triglycerides Arterial Blood Glucose Urine pH Ur Specific [place] Coronavirus (PCR) 03/29/21 03/29/21 03/29/21 05:25 11:34 18:02 WBC RBC Hgb Hct MCV MCHC RDW Plt Count Lymph % (Auto) [place] % (Auto) Lymph # (Auto) [place] # (Auto) Seg Neutrophils % Seg Neuts % (Manual) Lymphocytes % (Manual) Monocytes % (Manual) Nucleated RBC % Seg Neutrophils # Seg Neutrophils # Man Lymphocytes # (Manual) Monocytes # (Manual) PT INR APTT D-Dimer Heparin Anti-Xa Level ABG pH POC ABG pCO2 POC ABG pO2 ABG pO2 ABG HCO3 ABG O2 Saturation ABG Base Excess ABG Hemoglobin ABG Oxyhemoglobin ABG Sodium ABG Potassium ABG Glucose Oxyhemoglobin Carboxyhemoglobin Sodium Potassium Chloride Carbon Dioxide BUN Creatinine Glucose POC Glucose 127 H 169 H 173 H Lactic Acid Calcium Phosphorus Magnesium Ferritin Lactate Dehydrogenase C-Reactive Protein NT-Pro-B Natriuret Pep Total Protein Albumin Triglycerides Arterial Blood Glucose Urine pH Ur Specific [place] Coronavirus (PCR) 03/29/21 03/30/21 03/30/21 21:42 00:01 05:36 WBC RBC Hgb Hct MCV MCHC RDW 16.7 H Plt Count Lymph % (Auto) [place] % (Auto) Lymph # (Auto) [place] # (Auto) Seg Neutrophils % Seg Neuts % (Manual) Lymphocytes % (Manual) Monocytes % (Manual) Nucleated RBC % Seg Neutrophils # Seg Neutrophils # Man Lymphocytes # (Manual) Monocytes # (Manual) PT INR APTT D-Dimer Heparin Anti-Xa Level ABG pH POC ABG pCO2 POC ABG pO2 ABG pO2 ABG HCO3 ABG O2 Saturation ABG Base Excess ABG Hemoglobin ABG Oxyhemoglobin ABG Sodium ABG Potassium ABG Glucose Oxyhemoglobin Carboxyhemoglobin Sodium Potassium Chloride Carbon Dioxide BUN Creatinine Glucose POC Glucose 184 H 161 H Lactic Acid Calcium Phosphorus Magnesium Ferritin Lactate Dehydrogenase C-Reactive Protein NT-Pro-B Natriuret Pep Total Protein Albumin Triglycerides Arterial Blood Glucose Urine pH Ur Specific [place] Coronavirus (PCR) 03/30/21 03/30/21 03/30/21 05:36 06:03 11:32 WBC RBC Hgb Hct MCV MCHC RDW Plt Count Lymph % (Auto) [place] % (Auto) Lymph # (Auto) [place] # (Auto) Seg Neutrophils % Seg Neuts % (Manual) Lymphocytes % (Manual) Monocytes % (Manual) Nucleated RBC % Seg Neutrophils # Seg Neutrophils # Man Lymphocytes # (Manual) Monocytes # (Manual) PT INR APTT D-Dimer Heparin Anti-Xa Level ABG pH POC ABG pCO2 POC ABG pO2 ABG pO2 ABG HCO3 ABG O2 Saturation ABG Base Excess ABG Hemoglobin ABG Oxyhemoglobin ABG Sodium ABG Potassium ABG Glucose Oxyhemoglobin Carboxyhemoglobin Sodium Potassium Chloride Carbon Dioxide BUN Creatinine 0.5 L Glucose 127 H POC Glucose 130 H 183 H Lactic Acid Calcium Phosphorus Magnesium Ferritin Lactate Dehydrogenase C-Reactive Protein NT-Pro-B Natriuret Pep Total Protein Albumin Triglycerides Arterial Blood Glucose Urine pH Ur Specific [place] Coronavirus (PCR) 03/30/21 03/30/21 03/30/21 15:00 16:23 21:07 WBC RBC Hgb Hct MCV MCHC RDW Plt Count Lymph % (Auto) [place] % (Auto) Lymph # (Auto) [place] # (Auto) Seg Neutrophils % Seg Neuts % (Manual) Lymphocytes % (Manual) Monocytes % (Manual) Nucleated RBC % Seg Neutrophils # Seg Neutrophils # Man Lymphocytes # (Manual) Monocytes # (Manual) PT INR APTT D-Dimer Heparin Anti-Xa Level ABG pH POC ABG pCO2 POC ABG pO2 ABG pO2 67.2 L ABG HCO3 34.9 H ABG O2 Saturation ABG Base Excess 9.1 H ABG Hemoglobin 11.6 L ABG Oxyhemoglobin ABG Sodium ABG Potassium ABG Glucose Oxyhemoglobin 93.0 L Carboxyhemoglobin Sodium Potassium Chloride Carbon Dioxide BUN Creatinine Glucose POC Glucose 162 H 146 H Lactic Acid Calcium Phosphorus Magnesium Ferritin Lactate Dehydrogenase C-Reactive Protein NT-Pro-B Natriuret Pep Total Protein Albumin Triglycerides Arterial Blood Glucose Urine pH Ur Specific [place] Coronavirus (PCR) 03/30/21 03/31/21 03/31/21 23:23 05:44 11:19 WBC RBC Hgb Hct MCV MCHC RDW Plt Count Lymph % (Auto) [place] % (Auto) Lymph # (Auto) [place] # (Auto) Seg Neutrophils % Seg Neuts % (Manual) Lymphocytes % (Manual) Monocytes % (Manual) Nucleated RBC % Seg Neutrophils # Seg Neutrophils # Man Lymphocytes # (Manual) Monocytes # (Manual) PT INR APTT D-Dimer Heparin Anti-Xa Level ABG pH POC ABG pCO2 POC ABG pO2 ABG pO2 ABG HCO3 ABG O2 Saturation ABG Base Excess ABG Hemoglobin ABG Oxyhemoglobin ABG Sodium ABG Potassium ABG Glucose Oxyhemoglobin Carboxyhemoglobin Sodium Potassium Chloride Carbon Dioxide BUN Creatinine Glucose POC Glucose 138 H 180 H 178 H Lactic Acid Calcium Phosphorus Magnesium Ferritin Lactate Dehydrogenase C-Reactive Protein NT-Pro-B Natriuret Pep Total Protein Albumin Triglycerides Arterial Blood Glucose Urine pH Ur Specific [place] Coronavirus (PCR) 03/31/21 03/31/21 03/31/21 12:50 13:30 16:06 WBC RBC Hgb 11.3 L Hct 35.1 L MCV MCHC RDW 16.5 H Plt Count Lymph % (Auto) 7.6 L [place] % (Auto) 9.5 H Lymph # (Auto) 0.6 L [place] # (Auto) Seg Neutrophils % 78.3 H Seg Neuts % (Manual) Lymphocytes % (Manual) Monocytes % (Manual) Nucleated RBC % Seg Neutrophils # Seg Neutrophils # Man Lymphocytes # (Manual) Monocytes # (Manual) PT INR APTT D-Dimer Heparin Anti-Xa Level ABG pH POC ABG pCO2 POC ABG pO2 ABG pO2 99.4 H ABG HCO3 34.9 H ABG O2 Saturation ABG Base Excess 8.4 H ABG Hemoglobin 11.8 L ABG Oxyhemoglobin ABG Sodium ABG Potassium ABG Glucose Oxyhemoglobin Carboxyhemoglobin Sodium Potassium Chloride Carbon Dioxide BUN Creatinine Glucose POC Glucose 197 H Lactic Acid Calcium Phosphorus Magnesium Ferritin Lactate Dehydrogenase C-Reactive Protein NT-Pro-B Natriuret Pep Total Protein Albumin Triglycerides Arterial Blood Glucose Urine pH Ur Specific [place] Coronavirus (PCR) 03/31/21 04/01/21 04/01/21 20:51 05:37 07:16 WBC RBC 3.39 L Hgb 10.5 L Hct 31.6 L MCV MCHC RDW 16.1 H Plt Count Lymph % (Auto) [place] % (Auto) Lymph # (Auto) [place] # (Auto) Seg Neutrophils % Seg Neuts % (Manual) Lymphocytes % (Manual) Monocytes % (Manual) Nucleated RBC % Seg Neutrophils # Seg Neutrophils # Man Lymphocytes # (Manual) Monocytes # (Manual) PT INR APTT D-Dimer Heparin Anti-Xa Level ABG pH POC ABG pCO2 POC ABG pO2 ABG pO2 ABG HCO3 ABG O2 Saturation ABG Base Excess ABG Hemoglobin ABG Oxyhemoglobin ABG Sodium ABG Potassium ABG Glucose Oxyhemoglobin Carboxyhemoglobin Sodium Potassium Chloride Carbon Dioxide BUN Creatinine Glucose POC Glucose 140 H 128 H Lactic Acid Calcium Phosphorus Magnesium Ferritin Lactate Dehydrogenase C-Reactive Protein NT-Pro-B Natriuret Pep Total Protein Albumin Triglycerides Arterial Blood Glucose Urine pH Ur Specific [place] Coronavirus (PCR) 04/01/21 04/01/21 04/01/21 07:16 11:52 16:56 WBC RBC Hgb Hct MCV MCHC RDW Plt Count Lymph % (Auto) [place] % (Auto) Lymph # (Auto) [place] # (Auto) Seg Neutrophils % Seg Neuts % (Manual) Lymphocytes % (Manual) Monocytes % (Manual) Nucleated RBC % Seg Neutrophils # Seg Neutrophils # Man Lymphocytes # (Manual) Monocytes # (Manual) PT INR APTT D-Dimer Heparin Anti-Xa Level ABG pH POC ABG pCO2 POC ABG pO2 ABG pO2 ABG HCO3 ABG O2 Saturation ABG Base Excess ABG Hemoglobin ABG Oxyhemoglobin ABG Sodium ABG Potassium ABG Glucose Oxyhemoglobin Carboxyhemoglobin Sodium Potassium Chloride Carbon Dioxide BUN Creatinine 0.6 L Glucose 131 H POC Glucose 182 H 179 H Lactic Acid Calcium 8.3 L Phosphorus Magnesium Ferritin Lactate Dehydrogenase C-Reactive Protein NT-Pro-B Natriuret Pep Total Protein Albumin Triglycerides Arterial Blood Glucose Urine pH Ur Specific [place] Coronavirus (PCR) 04/01/21 04/01/21 04/02/21 21:30 23:40 04:26 WBC RBC 3.62 L Hgb 10.8 L Hct 33.9 L MCV MCHC RDW 16.0 H Plt Count Lymph % (Auto) [place] % (Auto) Lymph # (Auto) [place] # (Auto) Seg Neutrophils % Seg Neuts % (Manual) Lymphocytes % (Manual) Monocytes % (Manual) Nucleated RBC % Seg Neutrophils # Seg Neutrophils # Man Lymphocytes # (Manual) Monocytes # (Manual) PT INR APTT D-Dimer Heparin Anti-Xa Level ABG pH POC ABG pCO2 POC ABG pO2 ABG pO2 ABG HCO3 ABG O2 Saturation ABG Base Excess ABG Hemoglobin ABG Oxyhemoglobin ABG Sodium ABG Potassium ABG Glucose Oxyhemoglobin Carboxyhemoglobin Sodium Potassium Chloride Carbon Dioxide BUN Creatinine Glucose POC Glucose 131 H 129 H Lactic Acid Calcium Phosphorus Magnesium Ferritin Lactate Dehydrogenase C-Reactive Protein NT-Pro-B Natriuret Pep Total Protein Albumin Triglycerides Arterial Blood Glucose Urine pH Ur Specific [place] Coronavirus (PCR) 04/02/21 04/02/21 04/02/21 04:26 05:54 11:35 WBC RBC Hgb Hct MCV MCHC RDW Plt Count Lymph % (Auto) [place] % (Auto) Lymph # (Auto) [place] # (Auto) Seg Neutrophils % Seg Neuts % (Manual) Lymphocytes % (Manual) Monocytes % (Manual) Nucleated RBC % Seg Neutrophils # Seg Neutrophils # Man Lymphocytes # (Manual) Monocytes # (Manual) PT INR APTT D-Dimer Heparin Anti-Xa Level ABG pH POC ABG pCO2 POC ABG pO2 ABG pO2 ABG HCO3 ABG O2 Saturation ABG Base Excess ABG Hemoglobin ABG Oxyhemoglobin ABG Sodium ABG Potassium ABG Glucose Oxyhemoglobin Carboxyhemoglobin Sodium 136 L Potassium Chloride Carbon Dioxide BUN Creatinine 0.6 L Glucose 152 H POC Glucose 151 H 178 H Lactic Acid Calcium Phosphorus Magnesium Ferritin Lactate Dehydrogenase C-Reactive Protein NT-Pro-B Natriuret Pep Total Protein Albumin Triglycerides Arterial Blood Glucose Urine pH Ur Specific [place] Coronavirus (PCR) 04/02/21 04/02/21 04/02/21 16:11 21:09 23:38 WBC RBC Hgb Hct MCV MCHC RDW Plt Count Lymph % (Auto) [place] % (Auto) Lymph # (Auto) [place] # (Auto) Seg Neutrophils % Seg Neuts % (Manual) Lymphocytes % (Manual) Monocytes % (Manual) Nucleated RBC % Seg Neutrophils # Seg Neutrophils # Man Lymphocytes # (Manual) Monocytes # (Manual) PT INR APTT D-Dimer Heparin Anti-Xa Level ABG pH POC ABG pCO2 POC ABG pO2 ABG pO2 ABG HCO3 ABG O2 Saturation ABG Base Excess ABG Hemoglobin ABG Oxyhemoglobin ABG Sodium ABG Potassium ABG Glucose Oxyhemoglobin Carboxyhemoglobin Sodium Potassium Chloride Carbon Dioxide BUN Creatinine Glucose POC Glucose 186 H 145 H 152 H Lactic Acid Calcium Phosphorus Magnesium Ferritin Lactate Dehydrogenase C-Reactive Protein NT-Pro-B Natriuret Pep Total Protein Albumin Triglycerides Arterial Blood Glucose Urine pH Ur Specific [place] Coronavirus (PCR) 04/03/21 04/03/21 04/03/21 04:14 04:14 05:27 WBC RBC 3.62 L Hgb 11.0 L Hct 34.0 L MCV MCHC RDW 16.3 H Plt Count Lymph % (Auto) [place] % (Auto) Lymph # (Auto) [place] # (Auto) Seg Neutrophils % Seg Neuts % (Manual) Lymphocytes % (Manual) Monocytes % (Manual) Nucleated RBC % Seg Neutrophils # Seg Neutrophils # Man Lymphocytes # (Manual) Monocytes # (Manual) PT INR APTT D-Dimer Heparin Anti-Xa Level ABG pH POC ABG pCO2 POC ABG pO2 ABG pO2 ABG HCO3 ABG O2 Saturation ABG Base Excess ABG Hemoglobin ABG Oxyhemoglobin ABG Sodium ABG Potassium ABG Glucose Oxyhemoglobin Carboxyhemoglobin Sodium Potassium Chloride Carbon Dioxide 31 H BUN Creatinine 0.6 L Glucose 155 H POC Glucose 165 H Lactic Acid Calcium Phosphorus Magnesium Ferritin Lactate Dehydrogenase C-Reactive Protein NT-Pro-B Natriuret Pep Total Protein Albumin Triglycerides Arterial Blood Glucose Urine pH Ur Specific [place] Coronavirus (PCR) 04/03/21 04/03/21 04/03/21 11:02 16:19 19:45 WBC RBC Hgb Hct MCV MCHC RDW Plt Count Lymph % (Auto) [place] % (Auto) Lymph # (Auto) [place] # (Auto) Seg Neutrophils % Seg Neuts % (Manual) Lymphocytes % (Manual) Monocytes % (Manual) Nucleated RBC % Seg Neutrophils # Seg Neutrophils # Man Lymphocytes # (Manual) Monocytes # (Manual) PT INR APTT D-Dimer Heparin Anti-Xa Level ABG pH POC ABG pCO2 POC ABG pO2 ABG pO2 ABG HCO3 ABG O2 Saturation ABG Base Excess ABG Hemoglobin ABG Oxyhemoglobin ABG Sodium ABG Potassium ABG Glucose Oxyhemoglobin Carboxyhemoglobin Sodium Potassium Chloride Carbon Dioxide BUN Creatinine Glucose POC Glucose 161 H 180 H 136 H Lactic Acid Calcium Phosphorus Magnesium Ferritin Lactate Dehydrogenase C-Reactive Protein NT-Pro-B Natriuret Pep Total Protein Albumin Triglycerides Arterial Blood Glucose Urine pH Ur Specific [place] Coronavirus (PCR) 04/04/21 04/04/21 04/04/21 00:21 04:33 04:33 WBC 13.1 H RBC 3.49 L Hgb 10.3 L Hct 32.7 L MCV MCHC RDW 16.1 H Plt Count Lymph % (Auto) [place] % (Auto) Lymph # (Auto) [place] # (Auto) Seg Neutrophils % Seg Neuts % (Manual) Lymphocytes % (Manual) Monocytes % (Manual) Nucleated RBC % Seg Neutrophils # Seg Neutrophils # Man Lymphocytes # (Manual) Monocytes # (Manual) PT INR APTT D-Dimer Heparin Anti-Xa Level ABG pH POC ABG pCO2 POC ABG pO2 ABG pO2 ABG HCO3 ABG O2 Saturation ABG Base Excess ABG Hemoglobin ABG Oxyhemoglobin ABG Sodium ABG Potassium ABG Glucose Oxyhemoglobin Carboxyhemoglobin Sodium Potassium Chloride Carbon Dioxide 31 H BUN Creatinine 0.4 L Glucose 153 H POC Glucose 140 H Lactic Acid Calcium Phosphorus Magnesium Ferritin Lactate Dehydrogenase C-Reactive Protein NT-Pro-B Natriuret Pep Total Protein Albumin Triglycerides Arterial Blood Glucose Urine pH Ur Specific [place] Coronavirus (PCR) 04/04/21 04/04/21 04/04/21 05:16 11:39 17:22 WBC RBC Hgb Hct MCV MCHC RDW Plt Count Lymph % (Auto) [place] % (Auto) Lymph # (Auto) [place] # (Auto) Seg Neutrophils % Seg Neuts % (Manual) Lymphocytes % (Manual) Monocytes % (Manual) Nucleated RBC % Seg Neutrophils # Seg Neutrophils # Man Lymphocytes # (Manual) Monocytes # (Manual) PT INR APTT D-Dimer Heparin Anti-Xa Level ABG pH POC ABG pCO2 POC ABG pO2 ABG pO2 ABG HCO3 ABG O2 Saturation ABG Base Excess ABG Hemoglobin ABG Oxyhemoglobin ABG Sodium ABG Potassium ABG Glucose Oxyhemoglobin Carboxyhemoglobin Sodium Potassium Chloride Carbon Dioxide BUN Creatinine Glucose POC Glucose 152 H 154 H 198 H Lactic Acid Calcium Phosphorus Magnesium Ferritin Lactate Dehydrogenase C-Reactive Protein NT-Pro-B Natriuret Pep Total Protein Albumin Triglycerides Arterial Blood Glucose Urine pH Ur Specific [place] Coronavirus (PCR) 04/04/21 04/04/21 04/05/21 20:14 23:16 04:15 WBC RBC 3.21 L Hgb 10.0 L Hct 30.3 L MCV MCHC RDW 16.4 H Plt Count Lymph % (Auto) [place] % (Auto) Lymph # (Auto) [place] # (Auto) Seg Neutrophils % Seg Neuts % (Manual) Lymphocytes % (Manual) Monocytes % (Manual) Nucleated RBC % Seg Neutrophils # Seg Neutrophils # Man Lymphocytes # (Manual) Monocytes # (Manual) PT INR APTT D-Dimer Heparin Anti-Xa Level ABG pH POC ABG pCO2 POC ABG pO2 ABG pO2 ABG HCO3 ABG O2 Saturation ABG Base Excess ABG Hemoglobin ABG Oxyhemoglobin ABG Sodium ABG Potassium ABG Glucose Oxyhemoglobin Carboxyhemoglobin Sodium Potassium Chloride Carbon Dioxide BUN Creatinine Glucose POC Glucose 161 H 139 H Lactic Acid Calcium Phosphorus Magnesium Ferritin Lactate Dehydrogenase C-Reactive Protein NT-Pro-B Natriuret Pep Total Protein Albumin Triglycerides Arterial Blood Glucose Urine pH Ur Specific [place] Coronavirus (PCR) 04/05/21 04/05/21 04/05/21 04:15 05:34 12:09 WBC RBC Hgb Hct MCV MCHC RDW Plt Count Lymph % (Auto) [place] % (Auto) Lymph # (Auto) [place] # (Auto) Seg Neutrophils % Seg Neuts % (Manual) Lymphocytes % (Manual) Monocytes % (Manual) Nucleated RBC % Seg Neutrophils # Seg Neutrophils # Man Lymphocytes # (Manual) Monocytes # (Manual) PT INR APTT D-Dimer Heparin Anti-Xa Level ABG pH POC ABG pCO2 POC ABG pO2 ABG pO2 ABG HCO3 ABG O2 Saturation ABG Base Excess ABG Hemoglobin ABG Oxyhemoglobin ABG Sodium ABG Potassium ABG Glucose Oxyhemoglobin Carboxyhemoglobin Sodium Potassium Chloride 97.6 L Carbon Dioxide 32 H BUN Creatinine 0.5 L Glucose 147 H POC Glucose 145 H 173 H Lactic Acid Calcium Phosphorus Magnesium Ferritin Lactate Dehydrogenase C-Reactive Protein NT-Pro-B Natriuret Pep Total Protein Albumin Triglycerides Arterial Blood Glucose Urine pH Ur Specific [place] Coronavirus (PCR) 04/05/21 04/05/21 04/05/21 17:35 21:07 23:15 WBC RBC Hgb Hct MCV MCHC RDW Plt Count Lymph % (Auto) [place] % (Auto) Lymph # (Auto) [place] # (Auto) Seg Neutrophils % Seg Neuts % (Manual) Lymphocytes % (Manual) Monocytes % (Manual) Nucleated RBC % Seg Neutrophils # Seg Neutrophils # Man Lymphocytes # (Manual) Monocytes # (Manual) PT INR APTT D-Dimer Heparin Anti-Xa Level ABG pH POC ABG pCO2 POC ABG pO2 ABG pO2 ABG HCO3 ABG O2 Saturation ABG Base Excess ABG Hemoglobin ABG Oxyhemoglobin ABG Sodium ABG Potassium ABG Glucose Oxyhemoglobin Carboxyhemoglobin Sodium Potassium Chloride Carbon Dioxide BUN Creatinine Glucose POC Glucose 143 H 157 H 171 H Lactic Acid Calcium Phosphorus Magnesium Ferritin Lactate Dehydrogenase C-Reactive Protein NT-Pro-B Natriuret Pep Total Protein Albumin Triglycerides Arterial Blood Glucose Urine pH Ur Specific [place] Coronavirus (PCR) 04/06/21 04/06/21 04/06/21 04:49 05:14 11:42 WBC RBC Hgb Hct MCV MCHC RDW Plt Count Lymph % (Auto) [place] % (Auto) Lymph # (Auto) [place] # (Auto) Seg Neutrophils % Seg Neuts % (Manual) Lymphocytes % (Manual) Monocytes % (Manual) Nucleated RBC % Seg Neutrophils # Seg Neutrophils # Man Lymphocytes # (Manual) Monocytes # (Manual) PT INR APTT D-Dimer Heparin Anti-Xa Level ABG pH POC ABG pCO2 57.4 H POC ABG pO2 55.1 L ABG pO2 ABG HCO3 ABG O2 Saturation ABG Base Excess ABG Hemoglobin 11.5 L ABG Oxyhemoglobin 87.5 L ABG Sodium ABG Potassium ABG Glucose Oxyhemoglobin Carboxyhemoglobin Sodium Potassium Chloride Carbon Dioxide BUN Creatinine Glucose POC Glucose 145 H 171 H Lactic Acid Calcium Phosphorus Magnesium Ferritin Lactate Dehydrogenase C-Reactive Protein NT-Pro-B Natriuret Pep Total Protein Albumin Triglycerides Arterial Blood Glucose Urine pH Ur Specific [place] Coronavirus (PCR) 04/06/21 04/06/21 04/06/21 11:50 15:36 15:36 WBC RBC Hgb 10.4 L Hct 32.5 L MCV MCHC RDW Plt Count 444 H Lymph % (Auto) [place] % (Auto) Lymph # (Auto) [place] # (Auto) Seg Neutrophils % Seg Neuts % (Manual) Lymphocytes % (Manual) Monocytes % (Manual) Nucleated RBC % Seg Neutrophils # Seg Neutrophils # Man Lymphocytes # (Manual) Monocytes # (Manual) PT INR APTT 37.1 H D-Dimer Heparin Anti-Xa Level ABG pH 7.341 L POC ABG pCO2 POC ABG pO2 ABG pO2 108.9 H ABG HCO3 38.9 H ABG O2 Saturation ABG Base Excess 10.6 H ABG Hemoglobin 11.5 L ABG Oxyhemoglobin ABG Sodium ABG Potassium ABG Glucose Oxyhemoglobin Carboxyhemoglobin Sodium Potassium Chloride Carbon Dioxide BUN Creatinine Glucose POC Glucose Lactic Acid Calcium Phosphorus Magnesium Ferritin Lactate Dehydrogenase C-Reactive Protein NT-Pro-B Natriuret Pep Total Protein Albumin Triglycerides Arterial Blood Glucose Urine pH Ur Specific [place] Coronavirus (PCR) 04/06/21 04/07/21 04/07/21 17:57 00:30 00:32 WBC RBC Hgb Hct MCV MCHC RDW Plt Count Lymph % (Auto) [place] % (Auto) Lymph # (Auto) [place] # (Auto) Seg Neutrophils % Seg Neuts % (Manual) Lymphocytes % (Manual) Monocytes % (Manual) Nucleated RBC % Seg Neutrophils # Seg Neutrophils # Man Lymphocytes # (Manual) Monocytes # (Manual) PT INR APTT D-Dimer Heparin Anti-Xa Level < 0.10 L ABG pH POC ABG pCO2 POC ABG pO2 ABG pO2 ABG HCO3 ABG O2 Saturation ABG Base Excess ABG Hemoglobin ABG Oxyhemoglobin ABG Sodium ABG Potassium ABG Glucose Oxyhemoglobin Carboxyhemoglobin Sodium Potassium Chloride Carbon Dioxide BUN Creatinine Glucose POC Glucose 151 H 149 H Lactic Acid Calcium Phosphorus Magnesium Ferritin Lactate Dehydrogenase C-Reactive Protein NT-Pro-B Natriuret Pep Total Protein Albumin Triglycerides Arterial Blood Glucose Urine pH Ur Specific [place] Coronavirus (PCR) 04/07/21 04/07/21 04/07/21 05:34 06:08 06:08 WBC RBC 3.20 L Hgb 9.6 L Hct 29.8 L MCV MCHC RDW 16.0 H Plt Count 455 H Lymph % (Auto) [place] % (Auto) Lymph # (Auto) [place] # (Auto) Seg Neutrophils % Seg Neuts % (Manual) Lymphocytes % (Manual) Monocytes % (Manual) Nucleated RBC % Seg Neutrophils # Seg Neutrophils # Man Lymphocytes # (Manual) Monocytes # (Manual) PT INR APTT D-Dimer Heparin Anti-Xa Level ABG pH POC ABG pCO2 POC ABG pO2 ABG pO2 ABG HCO3 ABG O2 Saturation ABG Base Excess ABG Hemoglobin ABG Oxyhemoglobin ABG Sodium ABG Potassium ABG Glucose Oxyhemoglobin Carboxyhemoglobin Sodium Potassium Chloride Carbon Dioxide 35 H BUN Creatinine 0.5 L Glucose 216 H POC Glucose 182 H Lactic Acid Calcium Phosphorus Magnesium Ferritin Lactate Dehydrogenase C-Reactive Protein NT-Pro-B Natriuret Pep Total Protein Albumin Triglycerides Arterial Blood Glucose Urine pH Ur Specific [place] Coronavirus (PCR) 04/07/21 04/07/21 04/07/21 07:55 11:57 17:12 WBC RBC Hgb Hct MCV MCHC RDW Plt Count Lymph % (Auto) [place] % (Auto) Lymph # (Auto) [place] # (Auto) Seg Neutrophils % Seg Neuts % (Manual) Lymphocytes % (Manual) Monocytes % (Manual) Nucleated RBC % Seg Neutrophils # Seg Neutrophils # Man Lymphocytes # (Manual) Monocytes # (Manual) PT INR APTT D-Dimer Heparin Anti-Xa Level < 0.10 L ABG pH POC ABG pCO2 POC ABG pO2 ABG pO2 ABG HCO3 ABG O2 Saturation ABG Base Excess ABG Hemoglobin ABG Oxyhemoglobin ABG Sodium ABG Potassium ABG Glucose Oxyhemoglobin Carboxyhemoglobin Sodium Potassium Chloride Carbon Dioxide BUN Creatinine Glucose POC Glucose 182 H 165 H Lactic Acid Calcium Phosphorus Magnesium Ferritin Lactate Dehydrogenase C-Reactive Protein NT-Pro-B Natriuret Pep Total Protein Albumin Triglycerides Arterial Blood Glucose Urine pH Ur Specific [place] Coronavirus (PCR) 04/07/21 04/08/21 04/08/21 19:55 00:16 03:57 WBC RBC Hgb Hct MCV MCHC RDW Plt Count Lymph % (Auto) [place] % (Auto) Lymph # (Auto) [place] # (Auto) Seg Neutrophils % Seg Neuts % (Manual) Lymphocytes % (Manual) Monocytes % (Manual) Nucleated RBC % Seg Neutrophils # Seg Neutrophils # Man Lymphocytes # (Manual) Monocytes # (Manual) PT INR APTT D-Dimer Heparin Anti-Xa Level < 0.10 L ABG pH POC ABG pCO2 POC ABG pO2 ABG pO2 ABG HCO3 ABG O2 Saturation ABG Base Excess ABG Hemoglobin ABG Oxyhemoglobin ABG Sodium ABG Potassium ABG Glucose Oxyhemoglobin Carboxyhemoglobin Sodium Potassium 5.8 H Chloride 95.5 L Carbon Dioxide 37 H BUN Creatinine 0.5 L Glucose 161 H POC Glucose 175 H Lactic Acid Calcium Phosphorus Magnesium Ferritin Lactate Dehydrogenase C-Reactive Protein NT-Pro-B Natriuret Pep Total Protein Albumin Triglycerides Arterial Blood Glucose Urine pH Ur Specific [place] Coronavirus (PCR) 04/08/21 04/08/21 04/08/21 04:00 05:43 09:26 WBC RBC 3.25 L Hgb 9.9 L Hct 30.8 L MCV 95 H MCHC RDW 16.0 H Plt Count 487 H Lymph % (Auto) [place] % (Auto) Lymph # (Auto) [place] # (Auto) Seg Neutrophils % Seg Neuts % (Manual) Lymphocytes % (Manual) Monocytes % (Manual) Nucleated RBC % Seg Neutrophils # Seg Neutrophils # Man Lymphocytes # (Manual) Monocytes # (Manual) PT INR APTT D-Dimer Heparin Anti-Xa Level ABG pH POC ABG pCO2 POC ABG pO2 ABG pO2 ABG HCO3 ABG O2 Saturation ABG Base Excess ABG Hemoglobin ABG Oxyhemoglobin ABG Sodium ABG Potassium ABG Glucose Oxyhemoglobin Carboxyhemoglobin Sodium Potassium Chloride Carbon Dioxide BUN Creatinine Glucose POC Glucose 162 H 164 H Lactic Acid Calcium Phosphorus Magnesium Ferritin Lactate Dehydrogenase C-Reactive Protein NT-Pro-B Natriuret Pep Total Protein Albumin Triglycerides Arterial Blood Glucose Urine pH Ur Specific [place] Coronavirus (PCR) 04/08/21 04/08/21 04/08/21 11:53 17:19 20:35 WBC RBC Hgb Hct MCV MCHC RDW Plt Count Lymph % (Auto) [place] % (Auto) Lymph # (Auto) [place] # (Auto) Seg Neutrophils % Seg Neuts % (Manual) Lymphocytes % (Manual) Monocytes % (Manual) Nucleated RBC % Seg Neutrophils # Seg Neutrophils # Man Lymphocytes # (Manual) Monocytes # (Manual) PT INR APTT D-Dimer Heparin Anti-Xa Level ABG pH POC ABG pCO2 POC ABG pO2 ABG pO2 ABG HCO3 ABG O2 Saturation ABG Base Excess ABG Hemoglobin ABG Oxyhemoglobin ABG Sodium ABG Potassium ABG Glucose Oxyhemoglobin Carboxyhemoglobin Sodium Potassium Chloride Carbon Dioxide BUN Creatinine Glucose POC Glucose 170 H 157 H 190 H Lactic Acid Calcium Phosphorus Magnesium Ferritin Lactate Dehydrogenase C-Reactive Protein NT-Pro-B Natriuret Pep Total Protein Albumin Triglycerides Arterial Blood Glucose Urine pH Ur Specific [place] Coronavirus (PCR) 04/08/21 04/09/21 04/09/21 23:52 04:21 04:21 WBC 11.4 H RBC 2.97 L Hgb 8.9 L Hct 27.8 L MCV MCHC RDW 15.8 H Plt Count 485 H Lymph % (Auto) [place] % (Auto) Lymph # (Auto) [place] # (Auto) Seg Neutrophils % Seg Neuts % (Manual) Lymphocytes % (Manual) Monocytes % (Manual) Nucleated RBC % Seg Neutrophils # Seg Neutrophils # Man Lymphocytes # (Manual) Monocytes # (Manual) PT INR APTT D-Dimer Heparin Anti-Xa Level ABG pH POC ABG pCO2 POC ABG pO2 ABG pO2 ABG HCO3 ABG O2 Saturation ABG Base Excess ABG Hemoglobin ABG Oxyhemoglobin ABG Sodium ABG Potassium ABG Glucose Oxyhemoglobin Carboxyhemoglobin Sodium Potassium Chloride 97.1 L Carbon Dioxide 40 H BUN 21 H Creatinine 0.5 L Glucose 149 H POC Glucose 170 H Lactic Acid Calcium Phosphorus 1.90 L D Magnesium Ferritin Lactate Dehydrogenase C-Reactive Protein NT-Pro-B Natriuret Pep Total Protein Albumin Triglycerides Arterial Blood Glucose Urine pH Ur Specific [place] Coronavirus (PCR) 04/09/21 04/09/21 04/09/21 05:27 11:55 17:11 WBC RBC Hgb Hct MCV MCHC RDW Plt Count Lymph % (Auto) [place] % (Auto) Lymph # (Auto) [place] # (Auto) Seg Neutrophils % Seg Neuts % (Manual) Lymphocytes % (Manual) Monocytes % (Manual) Nucleated RBC % Seg Neutrophils # Seg Neutrophils # Man Lymphocytes # (Manual) Monocytes # (Manual) PT INR APTT D-Dimer Heparin Anti-Xa Level ABG pH POC ABG pCO2 POC ABG pO2 ABG pO2 ABG HCO3 ABG O2 Saturation ABG Base Excess ABG Hemoglobin ABG Oxyhemoglobin ABG Sodium ABG Potassium ABG Glucose Oxyhemoglobin Carboxyhemoglobin Sodium Potassium Chloride Carbon Dioxide BUN Creatinine Glucose POC Glucose 144 H 190 H 163 H Lactic Acid Calcium Phosphorus Magnesium Ferritin Lactate Dehydrogenase C-Reactive Protein NT-Pro-B Natriuret Pep Total Protein Albumin Triglycerides Arterial Blood Glucose Urine pH Ur Specific [place] Coronavirus (PCR) 04/09/21 04/09/21 04/09/21 20:10 21:12 23:33 WBC RBC Hgb Hct MCV MCHC RDW Plt Count Lymph % (Auto) [place] % (Auto) Lymph # (Auto) [place] # (Auto) Seg Neutrophils % Seg Neuts % (Manual) Lymphocytes % (Manual) Monocytes % (Manual) Nucleated RBC % Seg Neutrophils # Seg Neutrophils # Man Lymphocytes # (Manual) Monocytes # (Manual) PT INR APTT D-Dimer Heparin Anti-Xa Level ABG pH POC ABG pCO2 POC ABG pO2 ABG pO2 68.1 L ABG HCO3 41.3 H ABG O2 Saturation ABG Base Excess 14.6 H ABG Hemoglobin 10.2 L ABG Oxyhemoglobin ABG Sodium ABG Potassium ABG Glucose Oxyhemoglobin 94.7 L Carboxyhemoglobin Sodium Potassium Chloride Carbon Dioxide BUN Creatinine Glucose POC Glucose 163 H 164 H Lactic Acid Calcium Phosphorus Magnesium Ferritin Lactate Dehydrogenase C-Reactive Protein NT-Pro-B Natriuret Pep Total Protein Albumin Triglycerides Arterial Blood Glucose Urine pH Ur Specific [place] Coronavirus (PCR) 04/10/21 04/10/21 04/10/21 05:26 11:41 13:00 WBC RBC 3.09 L Hgb 9.3 L Hct 28.3 L MCV MCHC RDW 15.8 H Plt Count 480 H Lymph % (Auto) [place] % (Auto) Lymph # (Auto) [place] # (Auto) Seg Neutrophils % Seg Neuts % (Manual) Lymphocytes % (Manual) Monocytes % (Manual) Nucleated RBC % Seg Neutrophils # Seg Neutrophils # Man Lymphocytes # (Manual) Monocytes # (Manual) PT INR APTT D-Dimer Heparin Anti-Xa Level ABG pH POC ABG pCO2 POC ABG pO2 ABG pO2 ABG HCO3 ABG O2 Saturation ABG Base Excess ABG Hemoglobin ABG Oxyhemoglobin ABG Sodium ABG Potassium ABG Glucose Oxyhemoglobin Carboxyhemoglobin Sodium Potassium Chloride Carbon Dioxide BUN Creatinine Glucose POC Glucose 172 H 150 H Lactic Acid Calcium Phosphorus Magnesium Ferritin Lactate Dehydrogenase C-Reactive Protein NT-Pro-B Natriuret Pep Total Protein Albumin Triglycerides Arterial Blood Glucose Urine pH Ur Specific [place] Coronavirus (PCR) 04/10/21 04/10/21 04/10/21 13:00 17:46 21:37 WBC RBC Hgb Hct MCV MCHC RDW Plt Count Lymph % (Auto) [place] % (Auto) Lymph # (Auto) [place] # (Auto) Seg Neutrophils % Seg Neuts % (Manual) Lymphocytes % (Manual) Monocytes % (Manual) Nucleated RBC % Seg Neutrophils # Seg Neutrophils # Man Lymphocytes # (Manual) Monocytes # (Manual) PT INR APTT D-Dimer Heparin Anti-Xa Level ABG pH POC ABG pCO2 POC ABG pO2 ABG pO2 ABG HCO3 ABG O2 Saturation ABG Base Excess ABG Hemoglobin ABG Oxyhemoglobin ABG Sodium ABG Potassium ABG Glucose Oxyhemoglobin Carboxyhemoglobin Sodium Potassium Chloride 96.4 L Carbon Dioxide 34 H BUN Creatinine 0.5 L Glucose 165 H POC Glucose 165 H 166 H Lactic Acid Calcium Phosphorus Magnesium Ferritin Lactate Dehydrogenase C-Reactive Protein NT-Pro-B Natriuret Pep Total Protein Albumin Triglycerides Arterial Blood Glucose Urine pH Ur Specific [place] Coronavirus (PCR) 04/10/21 04/11/21 04/11/21 23:56 04:30 05:39 WBC 11.5 H RBC 3.02 L Hgb 8.9 L Hct 27.8 L MCV MCHC RDW 16.0 H Plt Count 505 H Lymph % (Auto) [place] % (Auto) Lymph # (Auto) [place] # (Auto) Seg Neutrophils % Seg Neuts % (Manual) Lymphocytes % (Manual) Monocytes % (Manual) Nucleated RBC % Seg Neutrophils # Seg Neutrophils # Man Lymphocytes # (Manual) Monocytes # (Manual) PT INR APTT D-Dimer Heparin Anti-Xa Level ABG pH POC ABG pCO2 POC ABG pO2 ABG pO2 ABG HCO3 ABG O2 Saturation ABG Base Excess ABG Hemoglobin ABG Oxyhemoglobin ABG Sodium ABG Potassium ABG Glucose Oxyhemoglobin Carboxyhemoglobin Sodium Potassium Chloride Carbon Dioxide BUN Creatinine Glucose POC Glucose 156 H 164 H Lactic Acid Calcium Phosphorus Magnesium Ferritin Lactate Dehydrogenase C-Reactive Protein NT-Pro-B Natriuret Pep Total Protein Albumin Triglycerides Arterial Blood Glucose Urine pH Ur Specific [place] Coronavirus (PCR) 04/11/21 04/11/21 04/11/21 06:47 06:47 11:29 WBC RBC 3.35 L Hgb 9.8 L Hct 30.7 L MCV MCHC RDW 16.3 H Plt Count 520 H Lymph % (Auto) [place] % (Auto) Lymph # (Auto) [place] # (Auto) Seg Neutrophils % Seg Neuts % (Manual) 76.0 H Lymphocytes % (Manual) 10.0 L Monocytes % (Manual) Nucleated RBC % Seg Neutrophils # Seg Neutrophils # Man 8.3 H Lymphocytes # (Manual) 1.1 L Monocytes # (Manual) PT INR APTT D-Dimer Heparin Anti-Xa Level ABG pH POC ABG pCO2 POC ABG pO2 ABG pO2 ABG HCO3 ABG O2 Saturation ABG Base Excess ABG Hemoglobin ABG Oxyhemoglobin ABG Sodium ABG Potassium ABG Glucose Oxyhemoglobin Carboxyhemoglobin Sodium Potassium Chloride 97.7 L Carbon Dioxide 34 H BUN Creatinine 0.4 L Glucose 178 H POC Glucose 170 H Lactic Acid Calcium Phosphorus Magnesium Ferritin Lactate Dehydrogenase C-Reactive Protein NT-Pro-B Natriuret Pep Total Protein Albumin Triglycerides Arterial Blood Glucose Urine pH Ur Specific [place] Coronavirus (PCR) 04/11/21 04/11/21 04/11/21 18:17 18:17 18:17 WBC RBC 3.22 L Hgb 9.5 L Hct 29.8 L MCV MCHC RDW 16.0 H Plt Count Lymph % (Auto) [place] % (Auto) Lymph # (Auto) [place] # (Auto) Seg Neutrophils % Seg Neuts % (Manual) Lymphocytes % (Manual) Monocytes % (Manual) Nucleated RBC % Seg Neutrophils # Seg Neutrophils # Man Lymphocytes # (Manual) Monocytes # (Manual) PT INR APTT 61.1 H* D-Dimer Heparin Anti-Xa Level ABG pH POC ABG pCO2 POC ABG pO2 ABG pO2 ABG HCO3 ABG O2 Saturation ABG Base Excess ABG Hemoglobin ABG Oxyhemoglobin ABG Sodium ABG Potassium ABG Glucose Oxyhemoglobin Carboxyhemoglobin Sodium Potassium Chloride Carbon Dioxide BUN Creatinine 0.3 L Glucose POC Glucose Lactic Acid Calcium Phosphorus Magnesium Ferritin Lactate Dehydrogenase C-Reactive Protein NT-Pro-B Natriuret Pep Total Protein Albumin Triglycerides Arterial Blood Glucose Urine pH Ur Specific [place] Coronavirus (PCR) 04/11/21 04/12/21 04/12/21 18:25 00:19 05:11 WBC RBC 2.92 L Hgb 8.6 L Hct 26.9 L MCV MCHC RDW 16.3 H Plt Count 460 H Lymph % (Auto) [place] % (Auto) Lymph # (Auto) [place] # (Auto) Seg Neutrophils % Seg Neuts % (Manual) Lymphocytes % (Manual) Monocytes % (Manual) Nucleated RBC % Seg Neutrophils # Seg Neutrophils # Man Lymphocytes # (Manual) Monocytes # (Manual) PT INR APTT D-Dimer Heparin Anti-Xa Level ABG pH POC ABG pCO2 POC ABG pO2 ABG pO2 ABG HCO3 ABG O2 Saturation ABG Base Excess ABG Hemoglobin ABG Oxyhemoglobin ABG Sodium ABG Potassium ABG Glucose Oxyhemoglobin Carboxyhemoglobin Sodium Potassium Chloride Carbon Dioxide BUN Creatinine Glucose POC Glucose 167 H 128 H Lactic Acid Calcium Phosphorus Magnesium Ferritin Lactate Dehydrogenase C-Reactive Protein NT-Pro-B Natriuret Pep Total Protein Albumin Triglycerides Arterial Blood Glucose Urine pH Ur Specific [place] Coronavirus (PCR) 04/12/21 04/12/21 04/12/21 05:11 05:11 06:23 WBC RBC Hgb Hct MCV MCHC RDW Plt Count Lymph % (Auto) [place] % (Auto) Lymph # (Auto) [place] # (Auto) Seg Neutrophils % Seg Neuts % (Manual) Lymphocytes % (Manual) Monocytes % (Manual) Nucleated RBC % Seg Neutrophils # Seg Neutrophils # Man Lymphocytes # (Manual) Monocytes # (Manual) PT INR APTT D-Dimer Heparin Anti-Xa Level 1.03 H ABG pH POC ABG pCO2 POC ABG pO2 ABG pO2 ABG HCO3 ABG O2 Saturation ABG Base Excess ABG Hemoglobin ABG Oxyhemoglobin ABG Sodium ABG Potassium ABG Glucose Oxyhemoglobin Carboxyhemoglobin Sodium Potassium Chloride Carbon Dioxide 34 H BUN Creatinine 0.3 L Glucose 153 H POC Glucose 162 H Lactic Acid Calcium Phosphorus Magnesium Ferritin Lactate Dehydrogenase C-Reactive Protein NT-Pro-B Natriuret Pep Total Protein Albumin Triglycerides Arterial Blood Glucose Urine pH Ur Specific [place] Coronavirus (PCR) 04/12/21 04/12/21 04/12/21 09:45 11:08 15:56 WBC RBC Hgb Hct MCV MCHC RDW Plt Count Lymph % (Auto) [place] % (Auto) Lymph # (Auto) [place] # (Auto) Seg Neutrophils % Seg Neuts % (Manual) Lymphocytes % (Manual) Monocytes % (Manual) Nucleated RBC % Seg Neutrophils # Seg Neutrophils # Man Lymphocytes # (Manual) Monocytes # (Manual) PT INR APTT D-Dimer Heparin Anti-Xa Level ABG pH POC ABG pCO2 POC ABG pO2 ABG pO2 70.8 L ABG HCO3 41.0 H ABG O2 Saturation ABG Base Excess 13.7 H ABG Hemoglobin 8.3 L ABG Oxyhemoglobin ABG Sodium ABG Potassium ABG Glucose Oxyhemoglobin 94.0 L Carboxyhemoglobin Sodium Potassium Chloride Carbon Dioxide BUN Creatinine Glucose POC Glucose 174 H 146 H Lactic Acid Calcium Phosphorus Magnesium Ferritin Lactate Dehydrogenase C-Reactive Protein NT-Pro-B Natriuret Pep Total Protein Albumin Triglycerides Arterial Blood Glucose Urine pH Ur Specific [place] Coronavirus (PCR) 04/12/21 04/12/21 04/13/21 21:55 23:25 04:34 WBC 12.5 H RBC 2.97 L Hgb 8.9 L Hct 27.3 L MCV MCHC RDW 16.4 H Plt Count 470 H Lymph % (Auto) [place] % (Auto) Lymph # (Auto) [place] # (Auto) Seg Neutrophils % Seg Neuts % (Manual) Lymphocytes % (Manual) Monocytes % (Manual) Nucleated RBC % Seg Neutrophils # Seg Neutrophils # Man Lymphocytes # (Manual) Monocytes # (Manual) PT INR APTT D-Dimer Heparin Anti-Xa Level ABG pH POC ABG pCO2 POC ABG pO2 ABG pO2 ABG HCO3 ABG O2 Saturation ABG Base Excess ABG Hemoglobin ABG Oxyhemoglobin ABG Sodium ABG Potassium ABG Glucose Oxyhemoglobin Carboxyhemoglobin Sodium Potassium Chloride Carbon Dioxide BUN Creatinine Glucose POC Glucose 142 H 170 H Lactic Acid Calcium Phosphorus Magnesium Ferritin Lactate Dehydrogenase C-Reactive Protein NT-Pro-B Natriuret Pep Total Protein Albumin Triglycerides Arterial Blood Glucose Urine pH Ur Specific [place] Coronavirus (PCR) 04/13/21 04/13/21 04/13/21 04:34 05:17 11:14 WBC RBC Hgb Hct MCV MCHC RDW Plt Count Lymph % (Auto) [place] % (Auto) Lymph # (Auto) [place] # (Auto) Seg Neutrophils % Seg Neuts % (Manual) Lymphocytes % (Manual) Monocytes % (Manual) Nucleated RBC % Seg Neutrophils # Seg Neutrophils # Man Lymphocytes # (Manual) Monocytes # (Manual) PT INR APTT D-Dimer Heparin Anti-Xa Level ABG pH POC ABG pCO2 POC ABG pO2 ABG pO2 ABG HCO3 ABG O2 Saturation ABG Base Excess ABG Hemoglobin ABG Oxyhemoglobin ABG Sodium ABG Potassium ABG Glucose Oxyhemoglobin Carboxyhemoglobin Sodium Potassium Chloride 96.6 L Carbon Dioxide 41 H* D BUN Creatinine 0.3 L Glucose 171 H POC Glucose 141 H 149 H Lactic Acid Calcium Phosphorus Magnesium Ferritin Lactate Dehydrogenase C-Reactive Protein NT-Pro-B Natriuret Pep Total Protein Albumin Triglycerides Arterial Blood Glucose Urine pH Ur Specific [place] Coronavirus (PCR) 04/13/21 04/13/21 04/14/21 15:51 23:35 04:32 WBC 13.8 H RBC 2.64 L Hgb 8.0 L Hct 24.1 L MCV MCHC RDW 16.1 H Plt Count Lymph % (Auto) [place] % (Auto) Lymph # (Auto) [place] # (Auto) Seg Neutrophils % Seg Neuts % (Manual) Lymphocytes % (Manual) Monocytes % (Manual) Nucleated RBC % Seg Neutrophils # Seg Neutrophils # Man Lymphocytes # (Manual) Monocytes # (Manual) PT INR APTT D-Dimer Heparin Anti-Xa Level ABG pH POC ABG pCO2 POC ABG pO2 ABG pO2 ABG HCO3 ABG O2 Saturation ABG Base Excess ABG Hemoglobin ABG Oxyhemoglobin ABG Sodium ABG Potassium ABG Glucose Oxyhemoglobin Carboxyhemoglobin Sodium Potassium Chloride Carbon Dioxide BUN Creatinine Glucose POC Glucose 136 H 167 H Lactic Acid Calcium Phosphorus Magnesium Ferritin Lactate Dehydrogenase C-Reactive Protein NT-Pro-B Natriuret Pep Total Protein Albumin Triglycerides Arterial Blood Glucose Urine pH Ur Specific [place] Coronavirus (PCR) 04/14/21 04/14/21 04/14/21 04:32 05:18 11:03 WBC RBC Hgb Hct MCV MCHC RDW Plt Count Lymph % (Auto) [place] % (Auto) Lymph # (Auto) [place] # (Auto) Seg Neutrophils % Seg Neuts % (Manual) Lymphocytes % (Manual) Monocytes % (Manual) Nucleated RBC % Seg Neutrophils # Seg Neutrophils # Man Lymphocytes # (Manual) Monocytes # (Manual) PT INR APTT D-Dimer Heparin Anti-Xa Level ABG pH POC ABG pCO2 POC ABG pO2 ABG pO2 ABG HCO3 ABG O2 Saturation ABG Base Excess ABG Hemoglobin ABG Oxyhemoglobin ABG Sodium ABG Potassium ABG Glucose Oxyhemoglobin Carboxyhemoglobin Sodium Potassium Chloride 95.5 L Carbon Dioxide 38 H BUN Creatinine 0.4 L Glucose 141 H POC Glucose 140 H 143 H Lactic Acid Calcium Phosphorus Magnesium Ferritin Lactate Dehydrogenase C-Reactive Protein NT-Pro-B Natriuret Pep Total Protein Albumin Triglycerides Arterial Blood Glucose Urine pH Ur Specific [place] Coronavirus (PCR) 04/14/21 04/14/21 04/14/21 16:38 23:46 Unknown WBC RBC Hgb Hct MCV MCHC RDW Plt Count Lymph % (Auto) [place] % (Auto) Lymph # (Auto) [place] # (Auto) Seg Neutrophils % Seg Neuts % (Manual) Lymphocytes % (Manual) Monocytes % (Manual) Nucleated RBC % Seg Neutrophils # Seg Neutrophils # Man Lymphocytes # (Manual) Monocytes # (Manual) PT INR APTT D-Dimer Heparin Anti-Xa Level ABG pH POC ABG pCO2 POC ABG pO2 ABG pO2 ABG HCO3 ABG O2 Saturation ABG Base Excess ABG Hemoglobin ABG Oxyhemoglobin ABG Sodium ABG Potassium ABG Glucose Oxyhemoglobin Carboxyhemoglobin Sodium Potassium Chloride Carbon Dioxide BUN Creatinine Glucose POC Glucose 157 H 155 H Lactic Acid Calcium Phosphorus Magnesium Ferritin Lactate Dehydrogenase C-Reactive Protein NT-Pro-B Natriuret Pep Total Protein Albumin Triglycerides Arterial Blood Glucose Urine pH 8.0 H Ur Specific [place] Coronavirus (PCR) 04/15/21 04/15/21 04/15/21 04:44 04:44 05:52 WBC 15.8 H RBC 2.96 L Hgb 8.9 L Hct 27.1 L MCV MCHC RDW 16.5 H Plt Count 507 H Lymph % (Auto) [place] % (Auto) Lymph # (Auto) [place] # (Auto) Seg Neutrophils % Seg Neuts % (Manual) Lymphocytes % (Manual) Monocytes % (Manual) Nucleated RBC % Seg Neutrophils # Seg Neutrophils # Man Lymphocytes # (Manual) Monocytes # (Manual) PT INR APTT D-Dimer Heparin Anti-Xa Level ABG pH POC ABG pCO2 POC ABG pO2 ABG pO2 ABG HCO3 ABG O2 Saturation ABG Base Excess ABG Hemoglobin ABG Oxyhemoglobin ABG Sodium ABG Potassium ABG Glucose Oxyhemoglobin Carboxyhemoglobin Sodium Potassium Chloride 96.9 L Carbon Dioxide 38 H BUN Creatinine 0.4 L Glucose 163 H POC Glucose 167 H Lactic Acid Calcium Phosphorus Magnesium Ferritin Lactate Dehydrogenase C-Reactive Protein NT-Pro-B Natriuret Pep Total Protein Albumin Triglycerides Arterial Blood Glucose Urine pH Ur Specific [place] Coronavirus (PCR) 04/15/21 04/15/21 04/15/21 11:35 17:20 18:10 WBC RBC Hgb Hct MCV MCHC RDW Plt Count Lymph % (Auto) [place] % (Auto) Lymph # (Auto) [place] # (Auto) Seg Neutrophils % Seg Neuts % (Manual) Lymphocytes % (Manual) Monocytes % (Manual) Nucleated RBC % Seg Neutrophils # Seg Neutrophils # Man Lymphocytes # (Manual) Monocytes # (Manual) PT INR APTT D-Dimer Heparin Anti-Xa Level ABG pH 7.477 H POC ABG pCO2 POC ABG pO2 ABG pO2 ABG HCO3 40.6 H ABG O2 Saturation ABG Base Excess 15.2 H ABG Hemoglobin 9.0 L ABG Oxyhemoglobin ABG Sodium ABG Potassium ABG Glucose Oxyhemoglobin 94.7 L Carboxyhemoglobin Sodium Potassium Chloride Carbon Dioxide BUN Creatinine Glucose POC Glucose 179 H 165 H Lactic Acid Calcium Phosphorus Magnesium Ferritin Lactate Dehydrogenase C-Reactive Protein NT-Pro-B Natriuret Pep Total Protein Albumin Triglycerides Arterial Blood Glucose Urine pH Ur Specific [place] Coronavirus (PCR) 04/15/21 04/16/21 04/16/21 23:39 04:33 04:33 WBC 13.1 H RBC 3.26 L Hgb 9.5 L Hct 30.2 L MCV MCHC 31 L RDW 16.2 H Plt Count Lymph % (Auto) [place] % (Auto) Lymph # (Auto) [place] # (Auto) Seg Neutrophils % Seg Neuts % (Manual) Lymphocytes % (Manual) Monocytes % (Manual) Nucleated RBC % Seg Neutrophils # Seg Neutrophils # Man Lymphocytes # (Manual) Monocytes # (Manual) PT INR APTT D-Dimer Heparin Anti-Xa Level ABG pH POC ABG pCO2 POC ABG pO2 ABG pO2 ABG HCO3 ABG O2 Saturation ABG Base Excess ABG Hemoglobin ABG Oxyhemoglobin ABG Sodium ABG Potassium ABG Glucose Oxyhemoglobin Carboxyhemoglobin Sodium Potassium Chloride 95.8 L Carbon Dioxide 34 H BUN 24 H Creatinine 0.4 L Glucose 153 H POC Glucose 155 H Lactic Acid Calcium Phosphorus Magnesium 2.40 H Ferritin Lactate Dehydrogenase C-Reactive Protein NT-Pro-B Natriuret Pep Total Protein Albumin Triglycerides Arterial Blood Glucose Urine pH Ur Specific [place] Coronavirus (PCR) 04/16/21 04/16/21 04/16/21 04:55 05:29 11:02 WBC RBC Hgb Hct MCV MCHC RDW Plt Count Lymph % (Auto) [place] % (Auto) Lymph # (Auto) [place] # (Auto) Seg Neutrophils % Seg Neuts % (Manual) Lymphocytes % (Manual) Monocytes % (Manual) Nucleated RBC % Seg Neutrophils # Seg Neutrophils # Man Lymphocytes # (Manual) Monocytes # (Manual) PT INR APTT D-Dimer Heparin Anti-Xa Level ABG pH 7.487 H POC ABG pCO2 POC ABG pO2 ABG pO2 75.4 L ABG HCO3 40.6 H ABG O2 Saturation ABG Base Excess 15.3 H ABG Hemoglobin 8.9 L ABG Oxyhemoglobin ABG Sodium ABG Potassium ABG Glucose Oxyhemoglobin Carboxyhemoglobin Sodium Potassium Chloride Carbon Dioxide BUN Creatinine Glucose POC Glucose 168 H 170 H Lactic Acid Calcium Phosphorus Magnesium Ferritin Lactate Dehydrogenase C-Reactive Protein NT-Pro-B Natriuret Pep Total Protein Albumin Triglycerides Arterial Blood Glucose Urine pH Ur Specific [place] Coronavirus (PCR) 04/16/21 04/16/21 04/17/21 16:13 23:41 04:25 WBC 12.5 H RBC 3.00 L Hgb 8.9 L Hct 27.2 L MCV MCHC RDW 16.0 H Plt Count Lymph % (Auto) [place] % (Auto) Lymph # (Auto) [place] # (Auto) Seg Neutrophils % Seg Neuts % (Manual) Lymphocytes % (Manual) Monocytes % (Manual) Nucleated RBC % Seg Neutrophils # Seg Neutrophils # Man Lymphocytes # (Manual) Monocytes # (Manual) PT INR APTT D-Dimer Heparin Anti-Xa Level ABG pH POC ABG pCO2 POC ABG pO2 ABG pO2 ABG HCO3 ABG O2 Saturation ABG Base Excess ABG Hemoglobin ABG Oxyhemoglobin ABG Sodium ABG Potassium ABG Glucose Oxyhemoglobin Carboxyhemoglobin Sodium Potassium Chloride Carbon Dioxide BUN Creatinine Glucose POC Glucose 167 H 150 H Lactic Acid Calcium Phosphorus Magnesium Ferritin Lactate Dehydrogenase C-Reactive Protein NT-Pro-B Natriuret Pep Total Protein Albumin Triglycerides Arterial Blood Glucose Urine pH Ur Specific [place] Coronavirus (PCR) 04/17/21 04/17/21 04/17/21 04:25 05:23 11:18 WBC RBC Hgb Hct MCV MCHC RDW Plt Count Lymph % (Auto) [place] % (Auto) Lymph # (Auto) [place] # (Auto) Seg Neutrophils % Seg Neuts % (Manual) Lymphocytes % (Manual) Monocytes % (Manual) Nucleated RBC % Seg Neutrophils # Seg Neutrophils # Man Lymphocytes # (Manual) Monocytes # (Manual) PT INR APTT D-Dimer Heparin Anti-Xa Level ABG pH POC ABG pCO2 POC ABG pO2 ABG pO2 ABG HCO3 ABG O2 Saturation ABG Base Excess ABG Hemoglobin ABG Oxyhemoglobin ABG Sodium ABG Potassium ABG Glucose Oxyhemoglobin Carboxyhemoglobin Sodium 136 L Potassium Chloride 92.4 L Carbon Dioxide 36 H BUN 23 H Creatinine 0.4 L Glucose 145 H POC Glucose 128 H 163 H Lactic Acid Calcium Phosphorus Magnesium Ferritin Lactate Dehydrogenase C-Reactive Protein NT-Pro-B Natriuret Pep Total Protein Albumin Triglycerides Arterial Blood Glucose Urine pH Ur Specific [place] Coronavirus (PCR) 04/17/21 04/17/21 04/18/21 16:50 21:04 00:18 WBC RBC Hgb Hct MCV MCHC RDW Plt Count Lymph % (Auto) [place] % (Auto) Lymph # (Auto) [place] # (Auto) Seg Neutrophils % Seg Neuts % (Manual) Lymphocytes % (Manual) Monocytes % (Manual) Nucleated RBC % Seg Neutrophils # Seg Neutrophils # Man Lymphocytes # (Manual) Monocytes # (Manual) PT INR APTT D-Dimer Heparin Anti-Xa Level ABG pH POC ABG pCO2 POC ABG pO2 ABG pO2 ABG HCO3 ABG O2 Saturation ABG Base Excess ABG Hemoglobin ABG Oxyhemoglobin ABG Sodium ABG Potassium ABG Glucose Oxyhemoglobin Carboxyhemoglobin Sodium Potassium Chloride Carbon Dioxide BUN Creatinine Glucose POC Glucose 137 H 186 H 194 H Lactic Acid Calcium Phosphorus Magnesium Ferritin Lactate Dehydrogenase C-Reactive Protein NT-Pro-B Natriuret Pep Total Protein Albumin Triglycerides Arterial Blood Glucose Urine pH Ur Specific [place] Coronavirus (PCR) 04/18/21 04/18/21 04/18/21 04:20 04:20 05:21 WBC 14.2 H RBC 2.92 L Hgb 8.5 L Hct 26.3 L MCV MCHC RDW 16.1 H Plt Count Lymph % (Auto) [place] % (Auto) Lymph # (Auto) [place] # (Auto) Seg Neutrophils % Seg Neuts % (Manual) Lymphocytes % (Manual) Monocytes % (Manual) Nucleated RBC % Seg Neutrophils # Seg Neutrophils # Man Lymphocytes # (Manual) Monocytes # (Manual) PT INR APTT D-Dimer Heparin Anti-Xa Level ABG pH POC ABG pCO2 POC ABG pO2 ABG pO2 ABG HCO3 ABG O2 Saturation ABG Base Excess ABG Hemoglobin ABG Oxyhemoglobin ABG Sodium ABG Potassium ABG Glucose Oxyhemoglobin Carboxyhemoglobin Sodium Potassium Chloride 95.7 L Carbon Dioxide 33 H BUN 21 H Creatinine 0.3 L Glucose 120 H POC Glucose 107 H Lactic Acid Calcium Phosphorus Magnesium Ferritin Lactate Dehydrogenase C-Reactive Protein NT-Pro-B Natriuret Pep Total Protein Albumin Triglycerides Arterial Blood Glucose Urine pH Ur Specific [place] Coronavirus (PCR) 04/18/21 04/18/21 04/18/21 05:26 11:30 11:33 WBC RBC Hgb Hct MCV MCHC RDW Plt Count Lymph % (Auto) [place] % (Auto) Lymph # (Auto) [place] # (Auto) Seg Neutrophils % Seg Neuts % (Manual) Lymphocytes % (Manual) Monocytes % (Manual) Nucleated RBC % Seg Neutrophils # Seg Neutrophils # Man Lymphocytes # (Manual) Monocytes # (Manual) PT INR APTT D-Dimer Heparin Anti-Xa Level ABG pH 7.469 H POC ABG pCO2 POC ABG pO2 ABG pO2 108.9 H ABG HCO3 36.2 H ABG O2 Saturation ABG Base Excess 11.2 H ABG Hemoglobin 8.8 L ABG Oxyhemoglobin ABG Sodium ABG Potassium ABG Glucose Oxyhemoglobin Carboxyhemoglobin Sodium Potassium Chloride Carbon Dioxide BUN Creatinine Glucose POC Glucose 111 H 113 H Lactic Acid Calcium Phosphorus Magnesium Ferritin Lactate Dehydrogenase C-Reactive Protein NT-Pro-B Natriuret Pep Total Protein Albumin Triglycerides Arterial Blood Glucose Urine pH Ur Specific [place] Coronavirus (PCR) 04/18/21 04/18/21 04/19/21 16:53 23:26 04:26 WBC 13.6 H RBC 2.69 L Hgb 8.5 L Hct 24.4 L MCV MCHC 35 H RDW 15.9 H Plt Count Lymph % (Auto) [place] % (Auto) Lymph # (Auto) [place] # (Auto) Seg Neutrophils % Seg Neuts % (Manual) Lymphocytes % (Manual) Monocytes % (Manual) Nucleated RBC % Seg Neutrophils # Seg Neutrophils # Man Lymphocytes # (Manual) Monocytes # (Manual) PT INR APTT D-Dimer Heparin Anti-Xa Level ABG pH POC ABG pCO2 POC ABG pO2 ABG pO2 ABG HCO3 ABG O2 Saturation ABG Base Excess ABG Hemoglobin ABG Oxyhemoglobin ABG Sodium ABG Potassium ABG Glucose Oxyhemoglobin Carboxyhemoglobin Sodium Potassium Chloride Carbon Dioxide BUN Creatinine Glucose POC Glucose 139 H 137 H Lactic Acid Calcium Phosphorus Magnesium Ferritin Lactate Dehydrogenase C-Reactive Protein NT-Pro-B Natriuret Pep Total Protein Albumin Triglycerides Arterial Blood Glucose Urine pH Ur Specific [place] Coronavirus (PCR) 04/19/21 04/19/21 04/19/21 04:26 05:16 11:01 WBC RBC Hgb Hct MCV MCHC RDW Plt Count Lymph % (Auto) [place] % (Auto) Lymph # (Auto) [place] # (Auto) Seg Neutrophils % Seg Neuts % (Manual) Lymphocytes % (Manual) Monocytes % (Manual) Nucleated RBC % Seg Neutrophils # Seg Neutrophils # Man Lymphocytes # (Manual) Monocytes # (Manual) PT INR APTT D-Dimer Heparin Anti-Xa Level ABG pH POC ABG pCO2 POC ABG pO2 ABG pO2 ABG HCO3 ABG O2 Saturation ABG Base Excess ABG Hemoglobin ABG Oxyhemoglobin ABG Sodium ABG Potassium ABG Glucose Oxyhemoglobin Carboxyhemoglobin Sodium Potassium Chloride Carbon Dioxide BUN Creatinine 0.3 L Glucose 163 H POC Glucose 154 H 164 H Lactic Acid Calcium Phosphorus Magnesium Ferritin Lactate Dehydrogenase C-Reactive Protein NT-Pro-B Natriuret Pep Total Protein Albumin Triglycerides Arterial Blood Glucose Urine pH Ur Specific [place] Coronavirus (PCR) 04/19/21 04/19/21 04/19/21 15:55 21:00 23:13 WBC RBC Hgb Hct MCV MCHC RDW Plt Count Lymph % (Auto) [place] % (Auto) Lymph # (Auto) [place] # (Auto) Seg Neutrophils % Seg Neuts % (Manual) Lymphocytes % (Manual) Monocytes % (Manual) Nucleated RBC % Seg Neutrophils # Seg Neutrophils # Man Lymphocytes # (Manual) Monocytes # (Manual) PT INR APTT D-Dimer Heparin Anti-Xa Level ABG pH POC ABG pCO2 POC ABG pO2 ABG pO2 ABG HCO3 ABG O2 Saturation ABG Base Excess ABG Hemoglobin ABG Oxyhemoglobin ABG Sodium ABG Potassium ABG Glucose Oxyhemoglobin Carboxyhemoglobin Sodium Potassium Chloride Carbon Dioxide BUN Creatinine Glucose POC Glucose 138 H 151 H 147 H Lactic Acid Calcium Phosphorus Magnesium Ferritin Lactate Dehydrogenase C-Reactive Protein NT-Pro-B Natriuret Pep Total Protein Albumin Triglycerides Arterial Blood Glucose Urine pH Ur Specific [place] Coronavirus (PCR) 04/20/21 04/20/21 04/20/21 04:17 04:17 05:15 WBC 13.1 H RBC 2.94 L Hgb 8.8 L Hct 26.8 L MCV MCHC RDW 16.2 H Plt Count Lymph % (Auto) [place] % (Auto) Lymph # (Auto) [place] # (Auto) Seg Neutrophils % Seg Neuts % (Manual) Lymphocytes % (Manual) Monocytes % (Manual) Nucleated RBC % Seg Neutrophils # Seg Neutrophils # Man Lymphocytes # (Manual) Monocytes # (Manual) PT INR APTT D-Dimer Heparin Anti-Xa Level ABG pH POC ABG pCO2 POC ABG pO2 ABG pO2 ABG HCO3 ABG O2 Saturation ABG Base Excess ABG Hemoglobin ABG Oxyhemoglobin ABG Sodium ABG Potassium ABG Glucose Oxyhemoglobin Carboxyhemoglobin Sodium 135 L Potassium Chloride Carbon Dioxide BUN Creatinine 0.3 L Glucose 151 H POC Glucose 126 H Lactic Acid Calcium 8.3 L Phosphorus Magnesium Ferritin Lactate Dehydrogenase C-Reactive Protein NT-Pro-B Natriuret Pep Total Protein Albumin Triglycerides Arterial Blood Glucose Urine pH Ur Specific [place] Coronavirus (PCR) 04/20/21 04/20/21 04/20/21 11:03 16:01 23:54 WBC RBC Hgb Hct MCV MCHC RDW Plt Count Lymph % (Auto) [place] % (Auto) Lymph # (Auto) [place] # (Auto) Seg Neutrophils % Seg Neuts % (Manual) Lymphocytes % (Manual) Monocytes % (Manual) Nucleated RBC % Seg Neutrophils # Seg Neutrophils # Man Lymphocytes # (Manual) Monocytes # (Manual) PT INR APTT D-Dimer Heparin Anti-Xa Level ABG pH POC ABG pCO2 POC ABG pO2 ABG pO2 ABG HCO3 ABG O2 Saturation ABG Base Excess ABG Hemoglobin ABG Oxyhemoglobin ABG Sodium ABG Potassium ABG Glucose Oxyhemoglobin Carboxyhemoglobin Sodium Potassium Chloride Carbon Dioxide BUN Creatinine Glucose POC Glucose 154 H 152 H 145 H Lactic Acid Calcium Phosphorus Magnesium Ferritin Lactate Dehydrogenase C-Reactive Protein NT-Pro-B Natriuret Pep Total Protein Albumin Triglycerides Arterial Blood Glucose Urine pH Ur Specific [place] Coronavirus (PCR) 04/21/21 04/21/21 04/21/21 04:39 11:20 11:37 WBC RBC Hgb Hct MCV MCHC RDW Plt Count Lymph % (Auto) [place] % (Auto) Lymph # (Auto) [place] # (Auto) Seg Neutrophils % Seg Neuts % (Manual) Lymphocytes % (Manual) Monocytes % (Manual) Nucleated RBC % Seg Neutrophils # Seg Neutrophils # Man Lymphocytes # (Manual) Monocytes # (Manual) PT INR APTT D-Dimer Heparin Anti-Xa Level ABG pH 7.503 H POC ABG pCO2 POC ABG pO2 ABG pO2 ABG HCO3 ABG O2 Saturation ABG Base Excess ABG Hemoglobin 10.8 L ABG Oxyhemoglobin ABG Sodium ABG Potassium ABG Glucose Oxyhemoglobin Carboxyhemoglobin 0.1 L Sodium Potassium Chloride Carbon Dioxide BUN Creatinine 0.3 L Glucose 174 H POC Glucose 147 H Lactic Acid Calcium Phosphorus Magnesium Ferritin Lactate Dehydrogenase C-Reactive Protein NT-Pro-B Natriuret Pep Total Protein Albumin Triglycerides Arterial Blood Glucose Urine pH Ur Specific [place] Coronavirus (PCR) 04/21/21 04/21/21 04/21/21 11:48 12:11 17:56 WBC 14.5 H RBC 3.08 L Hgb 9.3 L Hct 28.2 L MCV MCHC RDW 16.5 H Plt Count Lymph % (Auto) [place] % (Auto) Lymph # (Auto) [place] # (Auto) Seg Neutrophils % Seg Neuts % (Manual) Lymphocytes % (Manual) Monocytes % (Manual) Nucleated RBC % Seg Neutrophils # Seg Neutrophils # Man Lymphocytes # (Manual) Monocytes # (Manual) PT INR APTT D-Dimer Heparin Anti-Xa Level ABG pH POC ABG pCO2 POC ABG pO2 ABG pO2 ABG HCO3 ABG O2 Saturation ABG Base Excess ABG Hemoglobin ABG Oxyhemoglobin ABG Sodium ABG Potassium ABG Glucose Oxyhemoglobin Carboxyhemoglobin Sodium Potassium Chloride Carbon Dioxide BUN Creatinine Glucose POC Glucose 154 H 138 H Lactic Acid Calcium Phosphorus Magnesium Ferritin Lactate Dehydrogenase C-Reactive Protein NT-Pro-B Natriuret Pep Total Protein Albumin Triglycerides Arterial Blood Glucose Urine pH Ur Specific [place] Coronavirus (PCR) 04/21/21 04/22/21 04/22/21 23:31 04:30 04:30 WBC 12.3 H RBC 3.20 L Hgb 9.5 L Hct 29.3 L MCV MCHC RDW 16.6 H Plt Count Lymph % (Auto) [place] % (Auto) Lymph # (Auto) [place] # (Auto) Seg Neutrophils % Seg Neuts % (Manual) Lymphocytes % (Manual) Monocytes % (Manual) Nucleated RBC % Seg Neutrophils # Seg Neutrophils # Man Lymphocytes # (Manual) Monocytes # (Manual) PT INR APTT D-Dimer Heparin Anti-Xa Level ABG pH POC ABG pCO2 POC ABG pO2 ABG pO2 ABG HCO3 ABG O2 Saturation ABG Base Excess ABG Hemoglobin ABG Oxyhemoglobin ABG Sodium ABG Potassium ABG Glucose Oxyhemoglobin Carboxyhemoglobin Sodium Potassium Chloride Carbon Dioxide BUN Creatinine 0.3 L Glucose 125 H POC Glucose 162 H Lactic Acid Calcium Phosphorus Magnesium Ferritin Lactate Dehydrogenase C-Reactive Protein NT-Pro-B Natriuret Pep Total Protein Albumin Triglycerides Arterial Blood Glucose Urine pH Ur Specific [place] Coronavirus (PCR) 04/22/21 04/22/21 04/22/21 05:17 12:03 17:22 WBC RBC Hgb Hct MCV MCHC RDW Plt Count Lymph % (Auto) [place] % (Auto) Lymph # (Auto) [place] # (Auto) Seg Neutrophils % Seg Neuts % (Manual) Lymphocytes % (Manual) Monocytes % (Manual) Nucleated RBC % Seg Neutrophils # Seg Neutrophils # Man Lymphocytes # (Manual) Monocytes # (Manual) PT INR APTT D-Dimer Heparin Anti-Xa Level ABG pH POC ABG pCO2 POC ABG pO2 ABG pO2 ABG HCO3 ABG O2 Saturation ABG Base Excess ABG Hemoglobin ABG Oxyhemoglobin ABG Sodium ABG Potassium ABG Glucose Oxyhemoglobin Carboxyhemoglobin Sodium Potassium Chloride Carbon Dioxide BUN Creatinine Glucose POC Glucose 112 H 156 H 133 H Lactic Acid Calcium Phosphorus Magnesium Ferritin Lactate Dehydrogenase C-Reactive Protein NT-Pro-B Natriuret Pep Total Protein Albumin Triglycerides Arterial Blood Glucose Urine pH Ur Specific [place] Coronavirus (PCR) 04/23/21 04/23/21 04/23/21 00:58 05:08 12:59 WBC RBC Hgb Hct MCV MCHC RDW Plt Count Lymph % (Auto) [place] % (Auto) Lymph # (Auto) [place] # (Auto) Seg Neutrophils % Seg Neuts % (Manual) Lymphocytes % (Manual) Monocytes % (Manual) Nucleated RBC % Seg Neutrophils # Seg Neutrophils # Man Lymphocytes # (Manual) Monocytes # (Manual) PT INR APTT D-Dimer Heparin Anti-Xa Level ABG pH POC ABG pCO2 POC ABG pO2 ABG pO2 ABG HCO3 ABG O2 Saturation ABG Base Excess ABG Hemoglobin ABG Oxyhemoglobin ABG Sodium ABG Potassium ABG Glucose Oxyhemoglobin Carboxyhemoglobin Sodium Potassium Chloride Carbon Dioxide BUN Creatinine Glucose POC Glucose 133 H 156 H 139 H Lactic Acid Calcium Phosphorus Magnesium Ferritin Lactate Dehydrogenase C-Reactive Protein NT-Pro-B Natriuret Pep Total Protein Albumin Triglycerides Arterial Blood Glucose Urine pH Ur Specific [place] Coronavirus (PCR) 04/23/21 04/23/21 04/24/21 18:12 23:41 04:00 WBC 12.9 H RBC 3.33 L Hgb 10.2 L Hct 30.1 L MCV MCHC RDW 16.6 H Plt Count Lymph % (Auto) [place] % (Auto) Lymph # (Auto) [place] # (Auto) Seg Neutrophils % Seg Neuts % (Manual) Lymphocytes % (Manual) Monocytes % (Manual) Nucleated RBC % Seg Neutrophils # Seg Neutrophils # Man Lymphocytes # (Manual) Monocytes # (Manual) PT INR APTT D-Dimer Heparin Anti-Xa Level ABG pH POC ABG pCO2 POC ABG pO2 ABG pO2 ABG HCO3 ABG O2 Saturation ABG Base Excess ABG Hemoglobin ABG Oxyhemoglobin ABG Sodium ABG Potassium ABG Glucose Oxyhemoglobin Carboxyhemoglobin Sodium Potassium Chloride Carbon Dioxide BUN Creatinine Glucose POC Glucose 148 H 127 H Lactic Acid Calcium Phosphorus Magnesium Ferritin Lactate Dehydrogenase C-Reactive Protein NT-Pro-B Natriuret Pep Total Protein Albumin Triglycerides Arterial Blood Glucose Urine pH Ur Specific [place] Coronavirus (PCR) 04/24/21 04/24/21 04/24/21 04:00 05:15 11:45 WBC RBC Hgb Hct MCV MCHC RDW Plt Count Lymph % (Auto) [place] % (Auto) Lymph # (Auto) [place] # (Auto) Seg Neutrophils % Seg Neuts % (Manual) Lymphocytes % (Manual) Monocytes % (Manual) Nucleated RBC % Seg Neutrophils # Seg Neutrophils # Man Lymphocytes # (Manual) Monocytes # (Manual) PT INR APTT D-Dimer Heparin Anti-Xa Level ABG pH POC ABG pCO2 POC ABG pO2 ABG pO2 ABG HCO3 ABG O2 Saturation ABG Base Excess ABG Hemoglobin ABG Oxyhemoglobin ABG Sodium ABG Potassium ABG Glucose Oxyhemoglobin Carboxyhemoglobin Sodium Potassium Chloride Carbon Dioxide BUN Creatinine 0.4 L Glucose 136 H POC Glucose 135 H 140 H Lactic Acid Calcium Phosphorus Magnesium Ferritin Lactate Dehydrogenase C-Reactive Protein NT-Pro-B Natriuret Pep Total Protein Albumin Triglycerides Arterial Blood Glucose Urine pH Ur Specific [place] Coronavirus (PCR) 04/24/21 04/24/21 04/24/21 16:06 18:26 23:48 WBC RBC Hgb Hct MCV MCHC RDW Plt Count Lymph % (Auto) [place] % (Auto) Lymph # (Auto) [place] # (Auto) Seg Neutrophils % Seg Neuts % (Manual) Lymphocytes % (Manual) Monocytes % (Manual) Nucleated RBC % Seg Neutrophils # Seg Neutrophils # Man Lymphocytes # (Manual) Monocytes # (Manual) PT INR APTT D-Dimer Heparin Anti-Xa Level ABG pH POC ABG pCO2 POC ABG pO2 ABG pO2 ABG HCO3 ABG O2 Saturation ABG Base Excess ABG Hemoglobin ABG Oxyhemoglobin ABG Sodium ABG Potassium ABG Glucose Oxyhemoglobin Carboxyhemoglobin Sodium Potassium Chloride Carbon Dioxide BUN Creatinine Glucose POC Glucose 141 H 141 H 129 H Lactic Acid Calcium Phosphorus Magnesium Ferritin Lactate Dehydrogenase C-Reactive Protein NT-Pro-B Natriuret Pep Total Protein Albumin Triglycerides Arterial Blood Glucose Urine pH Ur Specific [place] Coronavirus (PCR) 04/25/21 04/25/21 04/25/21 05:27 11:27 15:04 WBC RBC Hgb Hct MCV MCHC RDW Plt Count Lymph % (Auto) [place] % (Auto) Lymph # (Auto) [place] # (Auto) Seg Neutrophils % Seg Neuts % (Manual) Lymphocytes % (Manual) Monocytes % (Manual) Nucleated RBC % Seg Neutrophils # Seg Neutrophils # Man Lymphocytes # (Manual) Monocytes # (Manual) PT INR APTT D-Dimer Heparin Anti-Xa Level ABG pH POC ABG pCO2 POC ABG pO2 ABG pO2 ABG HCO3 ABG O2 Saturation ABG Base Excess ABG Hemoglobin ABG Oxyhemoglobin ABG Sodium ABG Potassium ABG Glucose Oxyhemoglobin Carboxyhemoglobin Sodium 135 L Potassium Chloride Carbon Dioxide BUN Creatinine 0.4 L Glucose 142 H POC Glucose 142 H 151 H Lactic Acid Calcium Phosphorus Magnesium Ferritin Lactate Dehydrogenase C-Reactive Protein NT-Pro-B Natriuret Pep Total Protein Albumin Triglycerides Arterial Blood Glucose Urine pH Ur Specific [place] Coronavirus (PCR) 04/25/21 04/26/21 04/26/21 23:34 05:36 07:51 WBC RBC Hgb Hct MCV MCHC RDW Plt Count Lymph % (Auto) [place] % (Auto) Lymph # (Auto) [place] # (Auto) Seg Neutrophils % Seg Neuts % (Manual) Lymphocytes % (Manual) Monocytes % (Manual) Nucleated RBC % Seg Neutrophils # Seg Neutrophils # Man Lymphocytes # (Manual) Monocytes # (Manual) PT INR APTT D-Dimer Heparin Anti-Xa Level ABG pH POC ABG pCO2 POC ABG pO2 ABG pO2 ABG HCO3 ABG O2 Saturation ABG Base Excess ABG Hemoglobin ABG Oxyhemoglobin ABG Sodium ABG Potassium ABG Glucose Oxyhemoglobin Carboxyhemoglobin Sodium Potassium Chloride Carbon Dioxide BUN Creatinine Glucose POC Glucose 127 H 135 H 129 H Lactic Acid Calcium Phosphorus Magnesium Ferritin Lactate Dehydrogenase C-Reactive Protein NT-Pro-B Natriuret Pep Total Protein Albumin Triglycerides Arterial Blood Glucose Urine pH Ur Specific [place] Coronavirus (PCR) 04/26/21 04/26/21 04/26/21 11:24 18:14 21:07 WBC RBC Hgb Hct MCV MCHC RDW Plt Count Lymph % (Auto) [place] % (Auto) Lymph # (Auto) [place] # (Auto) Seg Neutrophils % Seg Neuts % (Manual) Lymphocytes % (Manual) Monocytes % (Manual) Nucleated RBC % Seg Neutrophils # Seg Neutrophils # Man Lymphocytes # (Manual) Monocytes # (Manual) PT INR APTT D-Dimer Heparin Anti-Xa Level ABG pH POC ABG pCO2 POC ABG pO2 ABG pO2 ABG HCO3 ABG O2 Saturation ABG Base Excess ABG Hemoglobin ABG Oxyhemoglobin ABG Sodium ABG Potassium ABG Glucose Oxyhemoglobin Carboxyhemoglobin Sodium Potassium Chloride Carbon Dioxide BUN Creatinine Glucose POC Glucose 129 H 109 H 122 H Lactic Acid Calcium Phosphorus Magnesium Ferritin Lactate Dehydrogenase C-Reactive Protein NT-Pro-B Natriuret Pep Total Protein Albumin Triglycerides Arterial Blood Glucose Urine pH Ur Specific [place] Coronavirus (PCR) 04/27/21 04/27/21 06:13 11:03 WBC RBC Hgb Hct MCV MCHC RDW Plt Count Lymph % (Auto) [place] % (Auto) Lymph # (Auto) [place] # (Auto) Seg Neutrophils % Seg Neuts % (Manual) Lymphocytes % (Manual) Monocytes % (Manual) Nucleated RBC % Seg Neutrophils # Seg Neutrophils # Man Lymphocytes # (Manual) Monocytes # (Manual) PT INR APTT D-Dimer Heparin Anti-Xa Level ABG pH POC ABG pCO2 POC ABG pO2 ABG pO2 ABG HCO3 ABG O2 Saturation ABG Base Excess ABG Hemoglobin ABG Oxyhemoglobin ABG Sodium ABG Potassium ABG Glucose Oxyhemoglobin Carboxyhemoglobin Sodium Potassium Chloride Carbon Dioxide BUN Creatinine Glucose POC Glucose 112 H 134 H Lactic Acid Calcium Phosphorus Magnesium Ferritin Lactate Dehydrogenase C-Reactive Protein NT-Pro-B Natriuret Pep Total Protein Albumin Triglycerides Arterial Blood Glucose Urine pH Ur Specific [place] Coronavirus (PCR) Allied health notes reviewed: nursing
--- NOTE | 2021-04-27 13:46 | Progress Note ---
Assessment and Plan Cultures: SARS CoV2 PCR: positive 03/08/2021 blood culture: no growth 03/10/2021 sputum culture: Usual respiratory marlyn 03/16/2021 blood culture: no growth 03/18/2021 sputum culture: Stenotrophomonas 03/31/2021 Blood culture: no growth 03/31/2021 tracheal aspirate: usual resp marlyn 04/14/2021 sputum culture: MSSA 04/14/2021 blood culture: No growth 04/14/2021 urine culture: No growth 04/15/2021 right middle lobe respiratory culture: MSSA A/P: 61-year-old male with diabetes, hypertension admitted to the hospital with complaints of shortness of breath and feeling weak for the last 1 week: #Sepsis secondary to bilateral pneumonia: secondary to COVID-19. Completed remdesivir, s/p Actemra, steroids. Completed abx for bacterial pneumonia, Stenotrophomonas. #MSSA pneumonia #Acute hypoxic respiratory failure: s/p trach and PEG. #DM #HTN #Acute DVT in RUE Recs: -continue higher dose cefazolin 3 g q8 hrs, may need a long course of abx (MSSA can cause severe pneumonia including necrotizing pneumonia). PLanned 14 days -monitor fever and WBC G. Joslyn Goins MD [facility] ([facility] O: [phone] F: [phone] Subjective Date of service: 04/27/21 Principal diagnosis: COVID-19 infection; DM II; Bilateral pneumonia; Obesity; HTN Interval history: Afebrile, white count slightly elevated. No other acute change. Objective - Exam Narrative Exam: Physical exam deferred to reduce risk of transmission of COVID-19. Please refer to primary team's note. - Constitutional Vitals: Vital Signs Temp Pulse Resp BP Pulse Ox 98.7 F 87 27 H 128/77 100 04/27/21 11:17 04/27/21 13:00 04/27/21 13:00 04/27/21 13:00 04/27/21 13:00 Temperature -Last 24 Hours Temperature 98.7 F Temperature 98.0 F Temperature 99.9 F Temperature 98.7 F Temperature 98.2 F Temperature 98.1 F - Labs CBC & Chem 7: 04/24/21 04:00 04/25/21 15:04 Labs: Abnormal lab results 04/26/21 04/26/21 04/27/21 Range/Units 18:14 21:07 06:13 POC Glucose 109 H 122 H 112 H (70-105) mg/dL 04/27/21 Range/Units 11:03 POC Glucose 134 H (70-105) mg/dL
[2021-04-27] MEDS: INSULIN GLARGINE 100 UNITS/ML SUB-Q SCH (22:11)
[2021-04-28] MEDS: ONDANSETRON 4 MG/2 ML INJ IV PRN (00:23)
[2021-04-28] MEDS: INSULIN LISPRO 100 UNIT/ML SUB-Q SCH ×3 (00:23→13:44)
[2021-04-28] MEDS: hydrALAZINE 25 MG TAB FEEDTUBE SCH ×3 (05:45→22:15)
[2021-04-28] MEDS: ACETAMINOPHEN 325 MG TAB PO PRN ×2 (05:46→19:59)
[2021-04-28] MEDS: oxyCODONE 5 MG TAB FEEDTUBE PRN ×2 (05:46→19:59)
[2021-04-28] MEDS: ARFORMOTEROL 15 MCG/2 ML NEBU IH SCH ×2 (08:27→22:32)
--- NOTE | 2021-04-28 09:31 | Progress Note ---
Assessment and Plan Assessment and plan: This is a 61-year-old male with past medical history of HTN and DM admitted for sepsis and acute hypoxic respiratory failure 2/2 COVID pneumonia s/p Trach and PEG on 2/ Hospital Course to Date: 03/09: The patient was seen and evaluated today, and he was found to be hemodynamically stable. The patient is currently on BiPAP for possible COVID-19 pneumonia. He was started on Lovenox 1mg/kg for DVT ppx in the setting of d- dimer > 10,000. Infectious Disease was consulted. The patient is pending a TTE. 03/10: No acute events overnight, patient was intubated in the afternoon transferred to ICU 03/11: Patient started on Lantus, free water flushes increased, propofol drip res umed and oral antihypertensive added. 03/12: lantus increased, k at 5, will monitor. I updated his family and his stated that he is not vaccinated. He does have HTN and she will call the RN to update home medications. She did say he takes bystolic and amlopine. She inquired about ventilator and lab work. She had no further questions. 03/13: KVNG overnight. Patient remains hyperglycemic, basal insulin adjusted and increased to Q12hrs. Patient is overall net positive since admit X1 dose of IV lasix, repeat BMP this afternoon. 03/14: Failed SAT this am due to increase agitation, tachycardia and hypertension. Remains on propofol and fentanyl gtt. Hyperkalemia treated with PO kayaxalate. Patient responded to IV lasix yesterday additional dose again today for a net negative balance. Repeat BMP this afternoon. Insulin adjusted for hyperglycemia. 03/15: Remains encephalopathic, not following commansd. Orders placed for CT head/Brain and Neuro consulted. Rectal bleeding subsided, most likely due to hemorrhoids. H&H is stable will continue to monitor. Kayaxexalate for high K, repeat labs 4 to 6hrs post treatment. 03/16: Still agiated this am, CT head with no acute Abn. CXR and ABG noted- evolving pna and worsening hypoxia, now with low grade fevers. Sputum culture ordered, IV Abx added, ID on cosult. 03/17: This am ABG noted, hypoxia improved. Continue to wean FiO2 as tolerated. Still with low grade fevers, on IV Abx per ID. Still with periods of confusion despite sedation, seroquel increased. F/u CXR in the am 03/18: still very agitated especially when off sedation, with hypertension and tachycardia. Continue sedation for RASS -2, PRN antihypertensive for SPB greater than 160. This febrile this am, continue current IV abx per ID 03/19: Patient afebrile overnight, continue IV Abx per ID. ABG also improved this am, continue to wean FIO2 as tolerated. PRN antihypertensive for hypertension. 03/20: Hyperkalemia treated with Kayexalate, Good discontinued, vancomycin and cefepime stopped started Bactrim by ID. Steroid taper started. 03/21: BB started for hypertension, Seroquel increased for agitation and Librium started no acute events reported overnight. [facility] made vent changes 03/22: Adjustment to anxiolytics, respiratory rate on ventilator per [facility]. Patient noted to have bleeding hemorrhoids with clot, requested RN to remove bowel management system and will order Preparation H. 03/23: Given no confirmed DVT or PE (only superficial thrombus noted on Dopplers) therapeutic Lovenox changed to prophylactic Lovenox. Started on doxazosin to help with retention. Consulted surgery for tracheostomy and propofol discontinued. 03/24: Surgery consult completed, patient changed to prophylaxis anticoagulation, started on doxazosin yesterday with plans to remove Good catheter in 48 hours. Patient with slight hypokalemia today and given Kayexalate. No acute events reported overnight. 03/25: No acute events reported overnight. Patient remains on fentanyl drip and on CPAP trial this morning. 03/26: no acute events reported overnight. placed on CPAP this AM, remains on fent/librium. scheduled for trach/peg this week. 03/27: Hypoglycemic this am, will decreased lantus to Qhs. Plan for possible Trach and Peg by Gen Surg this am. Case management to arrange possible LTAC placement 03/28: KVNG overnight. Tolerating PST this am. Plan for trach and PEG tomorrow by Gen. Surgery, NPO after midnight. 03/29: No significant changes overnight. Plan for trach and Peg today. Case management to arrange possible LTAC placement 03/30. S/p Trach and PEG, no complications noted. High residual yesterday despite NPO status, reglan added X2 days. Per RN no residual this am, patient is tolerating TF. Continue to advance TF as tolerated. Norvasc added for hypertension. Pitting edema also appreciated, some diuretic might be beneficial, will d/w CCM. Continue daily PST as tolerated. 03/31: Patient remains on the vent still on fentanyl gtt with periods of agitation. PRN analgesia added, plan to start weaning off fentanyl gtt. Febrile this am, completed IV abx course. Will panculture for now, ID is also following. 04/01: Still febrile overnight, cultures result pending, continue IV ABx per ID. Failed PST this am. Continue daily PST and vent wean per [facility]. Case management to arrange possible placement. 04/02: KVNG overnight. Fevers improved overnight, continue to follow cultures data, IV ABx per ID. Continue daily PST and wean vent as per [facility].\ 04/03: Given low procalcitonin, unchanged CXR and cultures with no growth cefepime was discontinued by ID. LTAC evaluation ongoing. No acute events reported overnight. 04/04: IV Lasix stopped today, Seroquel taper started, fentanyl drip on hold and steroids stopped. Pressure support trial again today. 04/05: Patient had to be restarted on fentanyl drip therefore Seroquel was increased back to 250 twice daily and he was started on scheduled narcotics and efforts to wean fentanyl drip. Doxazosin was increased to twice daily as patient still had retention issues on doxazosin once a day. Patient was denied LTAC placement. CPAP trial today. 04/06: Right upper extremity ultrasound obtained due to edema which showed DVT. Patient started on heparin drip. Overnight patient had hypoxia, tachypnea, tachycardia, hypotension and FiO2 was increased to 100%. RT titrating as tolerated. Plan was to start T-piece trials today. Patient has been denied LTAC placement. 04/07: BLE dopplar, continue lasix per [facility], CXR in AM. Increase in fio2 overnight d/t desaturation. Wean FiO2 as tolerated. 04/08: Patient remains on 65% FiO2, s/p Lasix for 3 doses, hyperkalemia noted today and medically treated. [facility] plans to consult heme/onc once FiO2 decreased. Remains on heparin gtt 04/09: No acute events reported overnight, possible heme-onc consult on Saturday or Saturday regarding upper extremity DVT, wean FiO2 as tolerated. Repeat CT head on Monday 04/10: Patient mentation is unchanged, repeat CT head today. Remains on heparin gtt per protocol. Continue daily PST as tolerated. 04/11: Increased work of breathing and high RR overnight, vent FiO2 increased to 55%. Resolved this am, patient is tolerating PST, no acute distress noted. Wean Fio2 as tolerated for SPO2 above 92%, Follow up CXR and ABG in the am. Antihypertensive regimen adjusted for better BP control. 04/12: Patient with coarse lungs and increased secretion today. This am CXR noted with worsen infiltrate, 40 of Lasix given, repeat CXR in the am. Patient remains afebrile, complete IV Abx course, VSS. Transitioned to PO Eliquis overnight, continue to keep patient net negative for better lung compliance. Continue daily PST as tolerated. 04/13: Patient is off sedation this am. Remains unresponsive. Librium D/C and Seroquel was adjusted to Qhs, PRN analgesia for pain management. Patient responded well to IV lasix, this am CXR with some improvement, additional IV lasix ordered again today. high CO2 also noted from this am, ABG ordered. Patient is tolerating PST this am, SPO2 remains above 95%. Continue daily PST plan to get patient off the vent for possible SNF placemement 04/14: Patient mentation is unchanged despite reducing sedative agents. Will hold all scheduled sedatives agents for now, PRN analgesics for pain management and vent synchrony. Patient spike a temp this am, orders placed for cultures, IV abx per ID. Additional lasix today, F/u CXR in the am. Patient is tolerating PST this am. 04/15: Remains febrile overnight. Culture data pending, back on IV Abx per ID. Gentle fluid management with IV lasix. Keep patient at a net negative balance. Continue daily PST as tolerated. 04/16: Open eyes spontaneously this am, but still not following commands. MRI brain ordered. Continue to avoid any sedative agents. Patient continue to respon d very well to IV diuretic, continue gentle diurese X3days as tolerated. Continue daily PST as tolerated. Plan is get patient off the vent for possible SNF placement. Patient remains febrile this am, now cefepine and Vanc, continue IV abx per ID. 04/17: We will repeat procalcitonin per ID, MRI brain pending, SNF placement pending, [facility] plans to start T-piece trials in the morning and will discontinue Good catheter again. 04/18: Overnight patient to be straight cath x2 but did eventually have spo ntaneous urine output today and Good catheter was not replaced, patient had MRI brain today and was started on T-piece trials. He received Versed for sedation for MRI brain. 04/19: Good catheter was not replaced overnight patient is still voiding, placed on T-piece today, scopolamine and Robinul restarted. 04/20: Patient T-piece trial again today, will decrease bowel regimen in a.m. for entering T-piece for 24 hours obtain gas in the a.m. Cefazolin increased 04/21: Patient remained on trach collar throughout the day, will be transitioned to IMCU. Good catheter was replaced overnight due to retention. 04/22: Patient continues to tolerate Trach collar, still with volume overload will continue with diuresis, monitor electrolytes, aggressive pulmonary toliet, aspiration precautions 04/23: Patient remains on trach collar which he is tolerating. Remains on cefazolin, Cardura and Lasix. 04/24: KVNG overnight. Patient is AAO, following commands, and tolerating T-piece. Continue PT 5X/week. Pending SNF vs Subacute rehab placement, case management to arrange. 04/25: KVNG overnight. Remains stable, tolerating T-piece. Plan for possible PSMV trial with speech once available. 04/26: Patient remains stable on T-piece. Awaiting possible SNF placement, case management to arrange. 04/27: Patient remains clinically stable continues on T-piece awaiting SNF placement. Mild leukocytosis but otherwise improving no fever noted at this time. Continue diuresis as there is improvement noted. He is able to vocalize words. Will defer to pulmonary about capping trials. 04/28: Continues to show some improvement. We will continue current management and diuresis as needed. Continue capping trial. Will check labs in a.m. Plan of care discussed with the patient and case management Assessment and Plan #Acute Hypoxic Respiratory Failure #COVID Pneumonia - Intubated on 03/10 due to worsen hypoxia on BIPAP - 2/2 s/p Tracheostomy - T-piece- 28% and 5L - Pulmonary on consult - Continue Nebs per CCM - Pulmonary hygiene - keep patient net negative for better lung compliance - Aspiration precaution HOB above 30 - Continue SPO2 monitoring for SPO2 goal above 92% #Sepsis #COVID Pneumonia #MSSA pneumonia -Infectious disease consulted, appreciate recommendations -S/p remdesivir for 5 days -S/p Actemra 03/10/2021 -f/u blood culture -Monitor WBC and temperature curve -s/p steroids -04/18 procal 0.19 -03/16 Fungitell and histoplasma negative -On high dose Cefazolin per ID #Acute Encephalopathy-improved - AAO, following commands - CT head/brain no acute Abn. - Repeat CT head and MRI brain noted - Avoid benzodiazepine to reduce the possibility of delirium - Prn analgesia for pain management - Maintenance of sleep-wake cycle - PT consulted, appreciate recommendations: PT recommends subacute rehab if patient does not qualify for LTAC #Hypertension - 03/09 Echocardiogram shows a mildly dilated ascending aorta, normal LV systolic function, mild concentric LVH, LVEF 60 to 65% - Continue current antihypertensive regimen - PRN Labetalol for SBP above 160 - Continue Blood pressure monitoring per protocol #Urinary retention - Good catheter removed 04/17 and replaced 04/21 - Continue Doxazosin BID - Strict intake and output - Avoid nephrotoxic medications; Renally dose medications - Monitor and replace electrolytes as needed - Trend BMP #Acute right upper extremity DVT - Bilateral lower extremity ultrasounds negative for DVT, superficial thrombus in left gastrocnemius vein - CTA chest shows no gross pulm embolism - bilateral upper extremity ultrasound shows DVT in right upper extremity - Continue PO Eliquis - SCDs to BLE while in bed - Transfuse hemoglobin less than 7 - Monitor for signs of bleeding #Endo:Type 2 DM - Continue high dose SSI Q6hrs - Lantus qHs - Avoid Hypoglycemia History Interval history: Patient seen and examined, resting comfortable, still trach Piece in place. Following commands actually vocalizing Hospitalist Physical - Physical exam Narrative exam: General appearance: Present: no acute distress, well-nourished, obese, vocalizing through the trach - EENT Eyes: Present: PERRL, EOM intact ENT: hearing intact, clear oral mucosa, dentition normal - Neck Neck: Present: Trach collar, ROM - Respiratory Respiratory effort: normal Respiratory: bilateral: CTA, diminished - Cardiovascular Rhythm: regular Heart Sounds: Present: S1 & S2. Absent: systolic murmur, diastolic murmur - Extremities Extremities: no ischemia, pulses intact, pulses symmetrical, normal temperature Peripheral Pulses: within normal limits - Abdominal General gastrointestinal: soft, non-tender, non-distended, normal bowel sounds - Integumentary Integumentary: Present: warm, +1 edema, overall improving - Psychiatric Psychiatric: cooperative - Neurologic Neurologic: CNII-XII intact, no focal deficits, moves all extremities - Allied Health Allied health notes reviewed: nursing, PT, OT, RT, social work - Constitutional Vitals: Temp Pulse Resp BP Pulse Ox 98.3 F 94 H 31 H 138/85 100 04/28/21 04:00 04/28/21 08:28 04/28/21 08:28 04/28/21 07:00 04/28/21 08:30 General appearance: Present: no acute distress, well-nourished, obese Results - Labs CBC & Chem 7: 04/24/21 04:00 04/25/21 15:04 Labs: Laboratory Last Values WBC 12.9 K/mm3 (4.5-11.0) H 04/24/21 04:00 RBC 3.33 M/mm3 (3.65-5.03) L 04/24/21 04:00 Hgb 10.2 gm/dl (11.8-15.2) L 04/24/21 04:00 Hct 30.1 % (35.5-45.6) L 04/24/21 04:00 MCV 90 fl (84-94) 04/24/21 04:00 MCH 31 pg (28-32) 04/24/21 04:00 MCHC 34 % (32-34) 04/24/21 04:00 RDW 16.6 % (13.2-15.2) H 04/24/21 04:00 Plt Count 393 K/mm3 (140-440) 04/24/21 04:00 Lymph % (Auto) 7.6 % (13.4-35.0) L 03/31/21 13:30 [place]ove % (Auto) 9.5 % (0.0-7.3) H 03/31/21 13:30 Eos % (Auto) 4.1 % (0.0-4.3) 03/31/21 13:30 Baso % (Auto) 0.5 % (0.0-1.8) 03/31/21 13:30 Lymph # (Auto) 0.6 K/mm3 (1.2-5.4) L 03/31/21 13:30 Gove # (Auto) 0.7 K/mm3 (0.0-0.8) 03/31/21 13:30 Eos # (Auto) 0.3 K/mm3 (0.0-0.4) 03/31/21 13:30 Baso # (Auto) 0.0 K/mm3 (0.0-0.1) 03/31/21 13:30 Add Manual Diff Complete 04/11/21 06:47 Total Counted 100 04/11/21 06:47 Seg Neutrophils % 78.3 % (40.0-70.0) H 03/31/21 13:30 Seg Neuts % (Manual) 76.0 % (40.0-70.0) H 04/11/21 06:47 Band Neutrophils % 2.0 % 04/11/21 06:47 Lymphocytes % (Manual) 10.0 % (13.4-35.0) L 04/11/21 06:47 Reactive Lymphs % (Man) 0 % 04/11/21 06:47 Monocytes % (Manual) 7.0 % (0.0-7.3) 04/11/21 06:47 Eosinophils % (Manual) 4.0 % (0.0-4.3) 04/11/21 06:47 Basophils % (Manual) 0 % (0.0-1.8) 04/11/21 06:47 Metamyelocytes % 1.0 % 04/11/21 06:47 Myelocytes % 0 % 04/11/21 06:47 Promyelocytes % 0 % 04/11/21 06:47 Blast Cells % 0 % 04/11/21 06:47 Nucleated RBC % Not Reportable 04/11/21 06:47 Seg Neutrophils # 5.8 K/mm3 (1.8-7.7) 03/31/21 13:30 Seg Neutrophils # Man 8.3 K/mm3 (1.8-7.7) H 04/11/21 06:47 Band Neutrophils # 0.2 K/mm3 04/11/21 06:47 Lymphocytes # (Manual) 1.1 K/mm3 (1.2-5.4) L 04/11/21 06:47 Abs React Lymphs (Man) 0.0 K/mm3 04/11/21 06:47 Monocytes # (Manual) 0.8 K/mm3 (0.0-0.8) 04/11/21 06:47 Eosinophils # (Manual) 0.4 K/mm3 (0.0-0.4) 04/11/21 06:47 Basophils # (Manual) 0.0 K/mm3 (0.0-0.1) 04/11/21 06:47 Metamyelocytes # 0.1 K/mm3 04/11/21 06:47 Myelocytes # 0.0 K/mm3 04/11/21 06:47 Promyelocytes # 0.0 K/mm3 04/11/21 06:47 Blast Cells # 0.0 K/mm3 04/11/21 06:47 WBC Morphology Not Reportable 04/11/21 06:47 Hypersegmented Neuts Not Reportable 04/11/21 06:47 Hyposegmented Neuts Not Reportable 04/11/21 06:47 Hypogranular Neuts Not Reportable 04/11/21 06:47 Smudge Cells Not Reportable 04/11/21 06:47 Toxic Granulation 1+ 04/11/21 06:47 Toxic Vacuolation Not Reportable 04/11/21 06:47 Dohle Bodies Not Reportable 04/11/21 06:47 Pelger-Huet Anomaly Not Reportable 04/11/21 06:47 Mely Rods Not Reportable 04/11/21 06:47 Platelet Estimate Consistent w auto 04/11/21 06:47 Clumped Platelets Not Reportable 04/11/21 06:47 Plt Clumps, EDTA Not Reportable 04/11/21 06:47 Large Platelets Not Reportable 04/11/21 06:47 Giant Platelets Not Reportable 04/11/21 06:47 Platelet Satelliting Not Reportable 04/11/21 06:47 Plt Morphology Comment Not Reportable 04/11/21 06:47 RBC Morphology Not Reportable 04/11/21 06:47 Dimorphic RBCs Not Reportable 04/11/21 06:47 Polychromasia Not Reportable 04/11/21 06:47 Hypochromasia Not Reportable 04/11/21 06:47 Poikilocytosis Not Reportable 04/11/21 06:47 Anisocytosis 1+ 04/11/21 06:47 Microcytosis Not Reportable 04/11/21 06:47 Macrocytosis Not Reportable 04/11/21 06:47 Spherocytes Not Reportable 04/11/21 06:47 Pappenheimer Bodies Not Reportable 04/11/21 06:47 Sickle Cells Not Reportable 04/11/21 06:47 Target Cells Not Reportable 04/11/21 06:47 Tear Drop Cells Not Reportable 04/11/21 06:47 Ovalocytes Not Reportable 04/11/21 06:47 Helmet Cells Not Reportable 04/11/21 06:47 Longo-Bixby Bodies Not Reportable 04/11/21 06:47 [place] Rings Not Reportable 04/11/21 06:47 Shama Cells Not Reportable 04/11/21 06:47 Bite Cells Not Reportable 04/11/21 06:47 Crenated Cell Not Reportable 04/11/21 06:47 Elliptocytes Not Reportable 04/11/21 06:47 Acanthocytes (Spur) Not Reportable 04/11/21 06:47 Rouleaux Not Reportable 04/11/21 06:47 Hemoglobin C Crystals Not Reportable 04/11/21 06:47 Schistocytes Not Reportable 04/11/21 06:47 Malaria parasites Not Reportable 04/11/21 06:47 Shaheen Bodies Not Reportable 04/11/21 06:47 Hem Pathologist Commnt No 04/11/21 06:47 PT 13.4 Sec. (12.2-14.9) 04/11/21 18:17 INR 0.92 (0.87-1.13) 04/11/21 18:17 APTT 61.1 Sec. (24.2-36.6) H* 04/11/21 18:17 D-Dimer 1359.12 ng/mlDDU (0-234) H 03/17/21 04:40 Heparin Anti-Xa Level 1.03 U.I./ml (0.3-0.7) H 04/12/21 05:11 ABG pH 7.503 (7.320-7.450) H 04/21/21 11:37 POC ABG pCO2 43.0 mmHg (32.0-48.0) 04/21/21 11:37 ABG pCO2 50.9 mm Hg 04/18/21 11:30 POC ABG pO2 92.3 mmHg (83-108) 04/21/21 11:37 ABG pO2 108.9 mm Hg (80.0-90.0) H 04/18/21 11:30 POC ABG HCO3 33.0 04/21/21 11:37 ABG HCO3 36.2 mmol/L (20.0-26.0) H 04/18/21 11:30 ABG O2 Saturation 98.2 (0-100) 04/21/21 11:37 ABG O2 Content 12.1 (0.0-44) 04/18/21 11:30 POC ABG Base Excess 9.0 04/21/21 11:37 ABG Base Excess 11.2 mmol/L (-2.0-3.0) H 04/18/21 11:30 ABG Hemoglobin 10.8 (12.0-17.5) L 04/21/21 11:37 ABG Oxyhemoglobin 97.8 (94-98) 04/21/21 11:37 ABG Carboxyhemoglobin 1.7 % (0.0-5.0) 04/18/21 11:30 ABG Methemoglobin 0.3 (0.0-1.5) 04/21/21 11:37 ABG Sodium 134.2 mmol/L (136.0-145.0) L 03/12/21 21:54 ABG Potassium 4.9 mmol/L (3.40-4.50) H 03/12/21 21:54 ABG Chloride 99.0 mmol/L (98-107) 03/12/21 21:54 ABG Glucose 306 mg/dL (65-95) H 03/12/21 21:54 Oxyhemoglobin 95.9 % (95.0-99.0) 04/18/21 11:30 Carboxyhemoglobin 0.1 (0.5-1.5) L 04/21/21 11:37 FiO2 40 % 04/18/21 11:30 FiO2 % 35.0 04/21/21 11:37 Sodium 135 mmol/L (137-145) L 04/25/21 15:04 Potassium 4.5 mmol/L (3.6-5.0) 04/25/21 15:04 Chloride 101.5 mmol/L (98-107) 04/25/21 15:04 Carbon Dioxide 24 mmol/L (22-30) 04/25/21 15:04 Anion Gap 14 mmol/L 04/25/21 15:04 BUN 11 mg/dL (9-20) 04/25/21 15:04 Creatinine 0.4 mg/dL (0.8-1.3) L 04/25/21 15:04 Estimated GFR > 60 ml/min 04/25/21 15:04 BUN/Creatinine Ratio 28 % 04/25/21 15:04 Glucose 142 mg/dL (75-100) H 04/25/21 15:04 POC Glucose 116 mg/dL (70-105) H 04/28/21 05:31 Lactic Acid 1.90 mmol/L (0.7-2.0) 03/08/21 23:51 Calcium 9.0 mg/dL (8.4-10.2) 04/25/21 15:04 Phosphorus 3.70 mg/dL (2.5-4.5) 04/25/21 15:04 Magnesium 2.30 mg/dL (1.7-2.3) 04/25/21 15:04 Ferritin 976.4 ng/mL (30.0-300.0) H 03/15/21 04:00 Total Bilirubin 0.20 mg/dL (0.1-1.2) 03/12/21 08:03 AST 10 units/L (5-40) 03/12/21 08:03 ALT 16 units/L (7-56) 03/12/21 08:03 Alkaline Phosphatase 77 units/L (35-129) 03/12/21 08:03 Lactate Dehydrogenase 630 units/L (91-180) H 03/15/21 06:06 C-Reactive Protein 0.40 mg/dL (0.00-1.30) 03/17/21 04:40 NT-Pro-B Natriuret Pep 1053 pg/mL (0-900) H 03/08/21 20:24 Total Protein 6.0 g/dL (6.3-8.2) L 03/12/21 08:03 Albumin 2.9 g/dL (3.9-5) L 03/12/21 08:03 Albumin/Globulin Ratio 0.9 % 03/12/21 08:03 Triglycerides 305 mg/dL (2-149) H 03/22/21 07:26 Procalcitonin 0.19 ng/mL (<0.15) 04/18/21 04:20 Arterial Blood Glucose 306 mg/dL (65-95) H 03/12/21 21:54 Arterial Blood Ionized Calcium 5.0 mg/dL (4.6-5.3) 03/12/21 21:54 Urine Color Yellow (Yellow) 04/14/21 Unknown Urine Turbidity Clear (Clear) 04/14/21 Unknown Urine pH 8.0 (5.0-7.0) H 04/14/21 Unknown Ur Specific [place] 1.009 (1.003-1.030) 04/14/21 Unknown Urine Protein <15 mg/dl mg/dL (Negative) 04/14/21 Unknown Urine Glucose (UA) Neg mg/dL (Negative) 04/14/21 Unknown Urine Ketones Neg mg/dL (Negative) 04/14/21 Unknown Urine Blood Neg (Negative) 04/14/21 Unknown Urine Nitrite Neg (Negative) 04/14/21 Unknown Urine Bilirubin Neg (Negative) 04/14/21 Unknown Urine Urobilinogen 2.0 mg/dL (<2.0) 04/14/21 Unknown Ur Leukocyte Esterase Neg (Negative) 04/14/21 Unknown Urine WBC (Auto) < 1.0 /HPF (0.0-6.0) 04/14/21 Unknown Urine RBC (Auto) < 1.0 /HPF (0.0-6.0) 04/14/21 Unknown Urine Bacteria (Auto) 1+ /HPF (Negative) 03/09/21 04:10 Urine Mucus Few /HPF 03/09/21 04:10 Vancomycin Trough 16.8 ug/mL (5.0-20.0) 04/16/21 14:30 Coronavirus (PCR) Negative (Negative) 04/27/21 08:00 Miscellaneous Test Flexitest 1 03/16/21 13:14 Good/IV: Voiding Method Indwelling Catheter Active Medications - Current Medications Current Medications: Generic Name Dose Route Start Last Admin Trade Name Freq PRN Reason Stop Dose Admin Acetaminophen 650 mg 03/09/21 01:26 04/28/21 05:46 Acetaminophen 325 Mg Tab PO 650 mg Q4H PRN Administration Pain MILD(1-3)/Fever >100.5/RAYO Albuterol 2.5 mg 03/09/21 01:26 03/18/21 21:06 Albuterol 2.5 Mg/3 Ml Nebu IH 2.5 mg Q4HRT PRN Administration Shortness Of Breath Amlodipine Besylate 10 mg 04/27/21 10:00 04/27/21 09:06 Amlodipine 10 Mg Tab FEEDTUBE 10 mg DAILY BLANCA Administration Apixaban 5 mg 04/26/21 22:00 04/27/21 22:09 Apixaban 5 Mg Tab FEEDTUBE 5 mg Q12HR BLANCA Administration Protocol Arformoterol Tartrate 15 mcg 03/11/21 20:00 04/28/21 08:27 Arformoterol 15 Mcg/2 Ml Nebu IH 15 mcg Q12HRT BLANCA Administration Dextrose 0 ml 03/20/21 10:52 Dextrose 10% *Hypoglycemia IV PRN PRN Hypoglycemia Docusate Sodium 100 mg 04/26/21 22:00 04/27/21 22:09 Docusate Sodium 100 Mg/10 Ml Oral Liqd FEEDTUBE 100 mg BID BLANCA Administration Doxazosin Mesylate 1 mg 04/26/21 10:00 04/27/21 22:09 Doxazosin 1 Mg Tab FEEDTUBE 1 mg BID BLANCA Administration Famotidine 20 mg 03/12/21 22:00 04/27/21 22:08 Famotidine 20 Mg Tab FEEDTUBE 20 mg BID BLANCA Administration Glycopyrrolate 2 mg 04/22/21 23:42 04/27/21 22:09 Glycopyrrolate 2 Mg Tab PO 2 mg TID BLANCA Administration Hydralazine HCl 50 mg 04/26/21 14:00 04/28/21 05:45 Hydralazine 25 Mg Tab FEEDTUBE 50 mg Q8HR BLANCA Administration Cefazolin Sodium 3 gm/ Sodium 100 mls @ 100 mls/30 min 04/20/21 14:00 04/28/21 05:57 Chloride IV 05/04/21 06:29 100 mls/30 min Q8HR BLANCA Administration Protocol Insulin Glargine 18 units 04/07/21 22:00 04/27/21 22:11 Insulin Glargine 100 Units/Ml SUB-Q 18 units QHS BLANCA Administration Insulin Human Lispro 0 unit 03/11/21 18:00 04/28/21 05:59 Insulin Lispro 100 Unit/Ml SUB-Q Not Given Q6HR [facility] Protocol Metoprolol Tartrate 12.5 mg 04/26/21 22:00 04/27/21 22:10 Metoprolol Tartrate 25 Mg Tab FEEDTUBE 12.5 mg BID BLANCA Administration Ondansetron HCl 4 mg 03/09/21 01:26 04/28/21 00:23 Ondansetron 4 Mg/2 Ml Inj IV 4 mg Q8H PRN Administration Nausea And Vomiting Oxycodone HCl 5 mg 04/26/21 10:00 04/28/21 05:46 Oxycodone 5 Mg Tab FEEDTUBE 5 mg Q6HR PRN Administration Pain, Moderate (4-6) Phenyleph/Shark Oil/Min Oil/Petrol 1 applic 03/22/21 17:35 04/06/21 04:04 Pe/Mo/Pet,Wh 10 /28 Gm Tube LA 1 applic Q6HR PRN Administration Hemorrhoids Scopolamine 1 each 04/19/21 13:00 04/25/21 09:53 Scopolamine Transdermal Patch 72 Hr TD 1 each Q3D BLANCA Administration Sodium Chloride 10 ml 03/09/21 10:00 04/28/21 05:47 Sodium Chloride 0.9% 10 Ml Flush Syringe IV 10 ml BID BLANCA Administration Sodium Chloride 10 ml 03/09/21 01:26 04/10/21 21:07 Sodium Chloride 0.9% 10 Ml Flush Syringe IV 10 ml PRN PRN Administration LINE FLUSH Nutrition/Malnutrition Assess - Dietary Evaluation Nutrition/Malnutrition Findings: Nutrition Notes Start: 03/09/21 08:49 Freq: Status: Active Protocol: Document 04/21/21 14:27 [facility] (Rec: 04/21/21 14:29 [id number]) Nutrition Notes Initial or Follow up Reassessment Current Diagnosis Diabetes,Sepsis,Hypertension, Respiratory Failure Other Pertinent Diagnosis COVID-19, Bilateral Pneumonia. Current Diet TF-Glucerna 1.2 at 70 ml/hr Labs/Tests reviewed Pertinent Medications Lasix Height 5 ft 11 in Weight 122.4 kg [place] Body Weight (kg) 78.18 BMI 37.6 Weight Status Obese Subjective/Other Information Pt tolerating T-piece trials for past two days. Per RN, will move to IMCU. Pt continues to tolerate TF at goal rate. Percent of energy/protein needs met: 82% energy 78% pro Burn Absent Trauma Absent #1 Nutrition Diagnosis Inadequate oral intake Diagnosis Progress(for reassessment Continues documentation) Is patient on ventilator? No Is Patient Ambulatory and/or Out of Bed No REE-([facility]-confined to bed) 4443.925 Calculation Used for Recommendations 70-80% energy needs Additional Notes Energy needs: 1321-2529 kcal/ day Pro needs 1.3g/kg adjBW: 130g/ day Fluid needs 1ml/kcal Nutrition Intervention Nutrition Support: Continue Glucerna 1.2 at 70ml/ hr with 110ml water flush q4h. Kcal 2,016 Protein (gm) 101 Carbohydrates (gm) 192 Fat (gm) 101 Fluid (mL) 1,352 Fiber (gm) 27 Goal #1 TF tolerance Goal #2 TF to meet at least 75% energy and pro needs Follow-Up By: 04/28/21 Additional Comments F/U: stable TF, wt, resp status
--- NOTE | 2021-04-28 10:44 | Progress Note ---
Assessment and Plan 61-year-old male with past medical history of hypertension and diabetes was brought to the emergency room because of shortness of breath and hypoxia. Patient has been feeling ill for approximately a week. Patient was confused and paramedics were called. Patient's oxygen saturation levels were in the low 70s. 88-90% O2 sat on a NRB mask. Patient does state he has had some cough was unable to give much additional history on arrival. Denies nausea vomiting diarrhea. Patient has not had a COVID test atient hypoxic even on a nonrebreather at 88%. Patient placed on BiPAP and his gait has a better O2 sat and his alertness is improved as well. Patient with by lateral patchy infiltrates in all lobes consistent with COVID-pneumonia. COVID testing is ordered. Umanzor virus test came back positive. Patient given Rocephin ,azithromycin and low-dose Decadron since he is diabetic. Patient to be admitted to the hospital service. Patient also given REMDESIVIR. Later decadron switched to I/V solumedrol. Patients inflammatory markers, D dimer, ferritin CRP are elevated. patient started on anticoagulation. Patient intubated and placed on mechanical ventilation. Patient has tracheostomy, eventually weaned from the ventilator, Patient presently in IMCU. Patient Obese, Awake Patient is on T tube, FIO2 28%. O2 saturation running 97%. No acute respiratory distress. Patient afebrile. Patient has mild leukocytosis. Blood pressure 128/69, Pulse 90, Respirations 28. Chest xray done 04/17/21 reported Mild improvement in pulmonary opacities. Patient is on Apixaban, Brovanna aerosol treatments, Famotidine,Glycopyrrolate and Cefazolin I spent critical care time of 34 minutes, review the chart, examine the patient, review chest xray and lab results, talking to respiratory and nursing staff and work out plan of treatment in this critically ill Covid 19 positive patient. - Patient Problems (1) Acute respiratory failure Current Visit: Yes Status: Acute Plan to address problem: Patient is on T tube, FIO2 28%. Brovanna aerosol treatments. Continue Apixaban Continue famotidine. (2) Diabetes Current Visit: Yes Status: Acute Plan to address problem: Management as per primary care. (3) Hypertension Current Visit: Yes Status: Acute Plan to address problem: Management as per primary care. (4) Coronavirus infection Current Visit: Yes Status: Acute Plan to address problem: Patient was on I/V solumedrol, REMDESIVIR,Apixaban, ceftriaxone and zithromax. Management as per infectious disease specialists. Subjective Date of service: 04/28/21 Principal diagnosis: COVID-19 infection; DM II; Bilateral pneumonia; Obesity; HTN Interval history: 61-year-old male with past medical history of hypertension and diabetes was brought to the emergency room because of shortness of breath and hypoxia. Patient has been feeling ill for approximately a week. Patient was confused and paramedics were called. Patient's oxygen saturation levels were in the low 70s. 88-90% O2 sat on a NRB mask. Patient does state he has had some cough was unable to give much additional history on arrival. Denies nausea vomiting diarrhea. Patient has not had a COVID test Patient hypoxic even on a nonrebreather at 88%. Patient placed on BiPAP and his gait has a better O2 sat and his alertness is improved as well. Patient with by lateral patchy infiltrates in all lobes consistent with COVID-pneumonia. COVID testing is ordered. Umanzor virus test came back positive. Patient given Rocephin ,azithromycin and low-dose Decadron since he is diabetic. Patient to be admitted to the hospital service. Patient also given REMDESIVIR. Later decadron switched to I/V solumedrol. Patients inflammatory markers, D dimer, ferritin CRP are elevated. patient started on anticoagulation. Patient intubated and placed on mechanical ventilation. Patient has tracheostomy, eventually weaned from the ventilator, Patient presently in IMCU. Patient Obese, Awake Patient is on T tube, FIO2 28%. O2 saturation running 97%. No acute respiratory distress. Patient afebrile. Patient has mild leukocytosis. Blood pressure 128/69, Pulse 90, Respirations 28. Chest xray done 04/17/21 reported Mild improvement in pulmonary opacities. Patient is on Apixaban, Brovanna aerosol treatments, Famotidine,Glycopyrrolate and Cefazolin Objective Vital Signs - 12hr 04/27/21 04/27/21 04/27/21 22:46 23:00 23:15 Temperature Pulse Rate 94 H 91 H Pulse Rate [ Bilateral Throughout] Respiratory 34 H 32 H Rate Respiratory Rate [Bilateral Throughout] Blood Pressure 128/74 124/75 O2 Sat by Pulse 99 97 100 Oximetry O2 Sat by Pulse Oximetry [ Assessment] 04/28/21 04/28/21 04/28/21 00:00 01:00 02:00 Temperature 98.7 F Pulse Rate 90 90 91 H Pulse Rate [ Bilateral Throughout] Respiratory 29 H 30 H 30 H Rate Respiratory Rate [Bilateral Throughout] Blood Pressure 137/80 122/74 124/77 O2 Sat by Pulse 100 91 98 Oximetry O2 Sat by Pulse Oximetry [ Assessment] 04/28/21 04/28/21 04/28/21 03:00 04:00 05:00 Temperature 98.3 F Pulse Rate 87 91 H 87 Pulse Rate [ Bilateral Throughout] Respiratory 22 25 H 23 Rate Respiratory Rate [Bilateral Throughout] Blood Pressure 126/75 130/78 120/74 O2 Sat by Pulse 100 99 98 Oximetry O2 Sat by Pulse Oximetry [ Assessment] 04/28/21 04/28/21 04/28/21 05:45 05:46 06:00 Temperature Pulse Rate 87 86 Pulse Rate [ Bilateral Throughout] Respiratory 24 25 H Rate Respiratory Rate [Bilateral Throughout] Blood Pressure 120/74 132/81 O2 Sat by Pulse Oximetry O2 Sat by Pulse Oximetry [ Assessment] 04/28/21 04/28/21 04/28/21 07:00 08:28 08:30 Temperature Pulse Rate 88 Pulse Rate [ 94 H Bilateral Throughout] Respiratory 22 Rate Respiratory 31 H Rate [Bilateral Throughout] Blood Pressure 138/85 O2 Sat by Pulse 100 Oximetry O2 Sat by Pulse 100 Oximetry [ Assessment] Constitutional: no acute distress, alert, other (elderly obese male with mildly increased respiratory effort at rest) Eyes: non-icteric, other ENT: oropharynx moist, other (+ midline tracheostomy) Neck: supple, no lymphadenopathy, lymphadenopathy, no JVD, other (large circumference) Effort: mildly labored Ascultation: Bilateral: diminished breath sounds, rales, rhonchi Percussion: Bilateral: not dull Cardiovascular: regular rate and rhythm, other (tachycardia, S1,S2) Gastrointestinal: normoactive bowel sounds, soft, non-tender, non-distended (protuberant) Integumentary: normal Extremities: no cyanosis, pulses normal, no ischemia or petechiae, edema (upper extremities), other Neurologic: non-focal exam (grossly), pupils equal and round, CN II-XII normal, other (follows simple prompts) Psychiatric: mood appropriate, affect normal CBC and BMP: 04/24/21 04:00 04/25/21 15:04 ABG, PT/INR, D-dimer: ABG ABG pH 7.503 (7.320-7.450) H 04/21/21 11:37 POC ABG pCO2 43.0 mmHg (32.0-48.0) 04/21/21 11:37 ABG pCO2 50.9 mm Hg 04/18/21 11:30 POC ABG pO2 92.3 mmHg (83-108) 04/21/21 11:37 ABG pO2 108.9 mm Hg (80.0-90.0) H 04/18/21 11:30 POC ABG HCO3 33.0 04/21/21 11:37 ABG O2 Saturation 98.2 (0-100) 04/21/21 11:37 PT/INR, D-dimer PT 13.4 Sec. (12.2-14.9) 04/11/21 18:17 INR 0.92 (0.87-1.13) 04/11/21 18:17 D-Dimer 1359.12 ng/mlDDU (0-234) H 03/17/21 04:40 Abnormal lab findings: Abnormal Labs 03/08/21 03/08/21 03/08/21 20:24 20:24 20:24 WBC 22.6 H RBC 5.44 H Hgb 15.7 H Hct 49.2 H MCV MCHC RDW Plt Count Lymph % (Auto) [place] % (Auto) Lymph # (Auto) [place] # (Auto) Seg Neutrophils % Seg Neuts % (Manual) 83.0 H Lymphocytes % (Manual) 9.0 L Monocytes % (Manual) 8.0 H Nucleated RBC % Seg Neutrophils # Seg Neutrophils # Man 18.8 H Lymphocytes # (Manual) Monocytes # (Manual) 1.8 H PT 16.1 H INR 1.17 H APTT D-Dimer > 56188 H Heparin Anti-Xa Level ABG pH POC ABG pCO2 POC ABG pO2 ABG pO2 ABG HCO3 ABG O2 Saturation ABG Base Excess ABG Hemoglobin ABG Oxyhemoglobin ABG Sodium ABG Potassium ABG Glucose Oxyhemoglobin Carboxyhemoglobin Sodium 136 L Potassium Chloride 93.9 L Carbon Dioxide BUN 29 H Creatinine Glucose 208 H POC Glucose Lactic Acid Calcium Phosphorus Magnesium Ferritin Lactate Dehydrogenase 624 H C-Reactive Protein 18.00 H NT-Pro-B Natriuret Pep 1053 H Total Protein Albumin Triglycerides Arterial Blood Glucose Urine pH Ur Specific [place] Coronavirus (PCR) 03/08/21 03/08/21 03/09/21 20:24 20:24 04:10 WBC RBC Hgb Hct MCV MCHC RDW Plt Count Lymph % (Auto) [place] % (Auto) Lymph # (Auto) [place] # (Auto) Seg Neutrophils % Seg Neuts % (Manual) Lymphocytes % (Manual) Monocytes % (Manual) Nucleated RBC % Seg Neutrophils # Seg Neutrophils # Man Lymphocytes # (Manual) Monocytes # (Manual) PT INR APTT D-Dimer Heparin Anti-Xa Level ABG pH POC ABG pCO2 POC ABG pO2 ABG pO2 ABG HCO3 ABG O2 Saturation ABG Base Excess ABG Hemoglobin ABG Oxyhemoglobin ABG Sodium ABG Potassium ABG Glucose Oxyhemoglobin Carboxyhemoglobin Sodium Potassium Chloride Carbon Dioxide BUN Creatinine Glucose POC Glucose Lactic Acid 2.10 H* Calcium Phosphorus Magnesium Ferritin 877.5 H Lactate Dehydrogenase C-Reactive Protein NT-Pro-B Natriuret Pep Total Protein Albumin Triglycerides Arterial Blood Glucose Urine pH Ur Specific [place] 1.041 H Coronavirus (PCR) 03/09/21 03/09/21 03/09/21 07:46 08:00 13:01 WBC RBC Hgb Hct MCV MCHC RDW Plt Count Lymph % (Auto) [place] % (Auto) Lymph # (Auto) [place] # (Auto) Seg Neutrophils % Seg Neuts % (Manual) Lymphocytes % (Manual) Monocytes % (Manual) Nucleated RBC % Seg Neutrophils # Seg Neutrophils # Man Lymphocytes # (Manual) Monocytes # (Manual) PT INR APTT D-Dimer Heparin Anti-Xa Level ABG pH POC ABG pCO2 POC ABG pO2 ABG pO2 ABG HCO3 ABG O2 Saturation ABG Base Excess ABG Hemoglobin ABG Oxyhemoglobin ABG Sodium ABG Potassium ABG Glucose Oxyhemoglobin Carboxyhemoglobin Sodium Potassium Chloride Carbon Dioxide BUN Creatinine Glucose POC Glucose 191 H 182 H Lactic Acid Calcium Phosphorus Magnesium Ferritin Lactate Dehydrogenase C-Reactive Protein NT-Pro-B Natriuret Pep Total Protein Albumin Triglycerides Arterial Blood Glucose Urine pH Ur Specific [place] Coronavirus (PCR) Positive A 03/09/21 03/09/21 03/09/21 15:19 17:48 18:10 WBC RBC Hgb Hct MCV MCHC RDW Plt Count Lymph % (Auto) [place] % (Auto) Lymph # (Auto) [place] # (Auto) Seg Neutrophils % Seg Neuts % (Manual) Lymphocytes % (Manual) Monocytes % (Manual) Nucleated RBC % Seg Neutrophils # Seg Neutrophils # Man Lymphocytes # (Manual) Monocytes # (Manual) PT INR APTT D-Dimer Heparin Anti-Xa Level ABG pH POC ABG pCO2 POC ABG pO2 ABG pO2 47.3 L ABG HCO3 26.3 H ABG O2 Saturation 83.7 L ABG Base Excess ABG Hemoglobin ABG Oxyhemoglobin ABG Sodium ABG Potassium ABG Glucose Oxyhemoglobin 82.1 L Carboxyhemoglobin Sodium Potassium Chloride Carbon Dioxide BUN 29 H Creatinine Glucose 214 H POC Glucose 194 H Lactic Acid Calcium Phosphorus Magnesium Ferritin Lactate Dehydrogenase C-Reactive Protein NT-Pro-B Natriuret Pep Total Protein Albumin 3.4 L Triglycerides Arterial Blood Glucose Urine pH Ur Specific [place] Coronavirus (PCR) 03/09/21 03/10/21 03/10/21 20:40 04:29 04:29 WBC 20.6 H RBC 5.07 H Hgb Hct 46.2 H MCV MCHC RDW Plt Count Lymph % (Auto) [place] % (Auto) Lymph # (Auto) [place] # (Auto) Seg Neutrophils % Seg Neuts % (Manual) 94.0 H Lymphocytes % (Manual) 1.0 L Monocytes % (Manual) Nucleated RBC % 3.0 H Seg Neutrophils # Seg Neutrophils # Man 19.4 H Lymphocytes # (Manual) 0.2 L Monocytes # (Manual) 1.0 H PT INR APTT D-Dimer Heparin Anti-Xa Level ABG pH POC ABG pCO2 POC ABG pO2 ABG pO2 ABG HCO3 ABG O2 Saturation ABG Base Excess ABG Hemoglobin ABG Oxyhemoglobin ABG Sodium ABG Potassium ABG Glucose Oxyhemoglobin Carboxyhemoglobin Sodium Potassium Chloride Carbon Dioxide BUN 29 H Creatinine Glucose 188 H POC Glucose 176 H Lactic Acid Calcium Phosphorus Magnesium Ferritin Lactate Dehydrogenase C-Reactive Protein NT-Pro-B Natriuret Pep Total Protein Albumin 3.3 L Triglycerides Arterial Blood Glucose Urine pH Ur Specific [place] Coronavirus (PCR) 03/10/21 03/10/21 03/10/21 05:22 10:27 15:25 WBC RBC Hgb Hct MCV MCHC RDW Plt Count Lymph % (Auto) [place] % (Auto) Lymph # (Auto) [place] # (Auto) Seg Neutrophils % Seg Neuts % (Manual) Lymphocytes % (Manual) Monocytes % (Manual) Nucleated RBC % Seg Neutrophils # Seg Neutrophils # Man Lymphocytes # (Manual) Monocytes # (Manual) PT INR APTT D-Dimer Heparin Anti-Xa Level ABG pH 7.488 H 7.488 H POC ABG pCO2 POC ABG pO2 ABG pO2 47.7 L 50.5 L ABG HCO3 ABG O2 Saturation 86.2 L 87.9 L ABG Base Excess ABG Hemoglobin ABG Oxyhemoglobin ABG Sodium ABG Potassium ABG Glucose Oxyhemoglobin 84.6 L 86.2 L Carboxyhemoglobin Sodium Potassium Chloride Carbon Dioxide BUN Creatinine Glucose POC Glucose 155 H Lactic Acid Calcium Phosphorus Magnesium Ferritin Lactate Dehydrogenase C-Reactive Protein NT-Pro-B Natriuret Pep Total Protein Albumin Triglycerides Arterial Blood Glucose Urine pH Ur Specific [place] Coronavirus (PCR) 03/10/21 03/10/21 03/11/21 18:10 18:55 00:07 WBC RBC Hgb Hct MCV MCHC RDW Plt Count Lymph % (Auto) [place] % (Auto) Lymph # (Auto) [place] # (Auto) Seg Neutrophils % Seg Neuts % (Manual) Lymphocytes % (Manual) Monocytes % (Manual) Nucleated RBC % Seg Neutrophils # Seg Neutrophils # Man Lymphocytes # (Manual) Monocytes # (Manual) PT INR APTT D-Dimer Heparin Anti-Xa Level ABG pH 7.343 L POC ABG pCO2 POC ABG pO2 ABG pO2 60.4 L ABG HCO3 27.9 H ABG O2 Saturation 88.7 L ABG Base Excess ABG Hemoglobin ABG Oxyhemoglobin ABG Sodium ABG Potassium ABG Glucose Oxyhemoglobin 86.9 L Carboxyhemoglobin Sodium Potassium Chloride Carbon Dioxide BUN Creatinine Glucose POC Glucose 187 H 139 H Lactic Acid Calcium Phosphorus Magnesium Ferritin Lactate Dehydrogenase C-Reactive Protein NT-Pro-B Natriuret Pep Total Protein Albumin Triglycerides Arterial Blood Glucose Urine pH Ur Specific [place] Coronavirus (PCR) 03/11/21 03/11/21 03/11/21 02:09 04:28 08:06 WBC RBC Hgb Hct MCV MCHC RDW Plt Count Lymph % (Auto) [place] % (Auto) Lymph # (Auto) [place] # (Auto) Seg Neutrophils % Seg Neuts % (Manual) Lymphocytes % (Manual) Monocytes % (Manual) Nucleated RBC % Seg Neutrophils # Seg Neutrophils # Man Lymphocytes # (Manual) Monocytes # (Manual) PT INR APTT D-Dimer Heparin Anti-Xa Level ABG pH 7.277 L POC ABG pCO2 55.9 H POC ABG pO2 54.4 L ABG pO2 ABG HCO3 ABG O2 Saturation ABG Base Excess ABG Hemoglobin ABG Oxyhemoglobin 83.0 L ABG Sodium ABG Potassium 4.8 H ABG Glucose 180 H Oxyhemoglobin Carboxyhemoglobin Sodium Potassium Chloride Carbon Dioxide BUN 38 H Creatinine Glucose 249 H POC Glucose 278 H Lactic Acid Calcium Phosphorus Magnesium Ferritin Lactate Dehydrogenase C-Reactive Protein NT-Pro-B Natriuret Pep Total Protein Albumin 3.2 L Triglycerides Arterial Blood Glucose 180 H Urine pH Ur Specific [place] Coronavirus (PCR) 03/11/21 03/11/21 03/11/21 11:29 15:06 15:48 WBC RBC Hgb Hct MCV MCHC RDW Plt Count Lymph % (Auto) [place] % (Auto) Lymph # (Auto) [place] # (Auto) Seg Neutrophils % Seg Neuts % (Manual) Lymphocytes % (Manual) Monocytes % (Manual) Nucleated RBC % Seg Neutrophils # Seg Neutrophils # Man Lymphocytes # (Manual) Monocytes # (Manual) PT INR APTT D-Dimer Heparin Anti-Xa Level ABG pH 7.260 L POC ABG pCO2 POC ABG pO2 ABG pO2 53.5 L ABG HCO3 29.5 H ABG O2 Saturation 84.0 L ABG Base Excess ABG Hemoglobin ABG Oxyhemoglobin ABG Sodium ABG Potassium ABG Glucose Oxyhemoglobin 82.3 L Carboxyhemoglobin Sodium Potassium Chloride Carbon Dioxide BUN Creatinine Glucose POC Glucose 288 H 295 H Lactic Acid Calcium Phosphorus Magnesium Ferritin Lactate Dehydrogenase C-Reactive Protein NT-Pro-B Natriuret Pep Total Protein Albumin Triglycerides Arterial Blood Glucose Urine pH Ur Specific [place] Coronavirus (PCR) 03/12/21 03/12/21 03/12/21 00:01 05:24 08:03 WBC RBC Hgb Hct MCV MCHC RDW Plt Count Lymph % (Auto) [place] % (Auto) Lymph # (Auto) [place] # (Auto) Seg Neutrophils % Seg Neuts % (Manual) Lymphocytes % (Manual) Monocytes % (Manual) Nucleated RBC % Seg Neutrophils # Seg Neutrophils # Man Lymphocytes # (Manual) Monocytes # (Manual) PT INR APTT D-Dimer Heparin Anti-Xa Level ABG pH POC ABG pCO2 POC ABG pO2 ABG pO2 ABG HCO3 ABG O2 Saturation ABG Base Excess ABG Hemoglobin ABG Oxyhemoglobin ABG Sodium ABG Potassium ABG Glucose Oxyhemoglobin Carboxyhemoglobin Sodium 135 L Potassium Chloride Carbon Dioxide BUN 48 H Creatinine Glucose 358 H POC Glucose 304 H 310 H Lactic Acid Calcium Phosphorus Magnesium Ferritin Lactate Dehydrogenase C-Reactive Protein NT-Pro-B Natriuret Pep Total Protein 6.0 L Albumin 2.9 L Triglycerides Arterial Blood Glucose Urine pH Ur Specific [place] Coronavirus (PCR) 03/12/21 03/12/21 03/12/21 08:03 10:43 11:31 WBC 14.6 H RBC Hgb Hct MCV MCHC RDW Plt Count Lymph % (Auto) [place] % (Auto) Lymph # (Auto) [place] # (Auto) Seg Neutrophils % Seg Neuts % (Manual) Lymphocytes % (Manual) Monocytes % (Manual) Nucleated RBC % Seg Neutrophils # Seg Neutrophils # Man Lymphocytes # (Manual) Monocytes # (Manual) PT INR APTT D-Dimer Heparin Anti-Xa Level ABG pH 7.248 L POC ABG pCO2 POC ABG pO2 ABG pO2 73.7 L ABG HCO3 32.0 H ABG O2 Saturation 93.9 L ABG Base Excess ABG Hemoglobin ABG Oxyhemoglobin ABG Sodium ABG Potassium ABG Glucose Oxyhemoglobin 92.1 L Carboxyhemoglobin Sodium Potassium Chloride Carbon Dioxide BUN Creatinine Glucose POC Glucose 359 H Lactic Acid Calcium Phosphorus Magnesium Ferritin Lactate Dehydrogenase C-Reactive Protein NT-Pro-B Natriuret Pep Total Protein Albumin Triglycerides Arterial Blood Glucose Urine pH Ur Specific [place] Coronavirus (PCR) 03/12/21 03/12/21 03/13/21 17:20 21:54 00:02 WBC RBC Hgb Hct MCV MCHC RDW Plt Count Lymph % (Auto) [place] % (Auto) Lymph # (Auto) [place] # (Auto) Seg Neutrophils % Seg Neuts % (Manual) Lymphocytes % (Manual) Monocytes % (Manual) Nucleated RBC % Seg Neutrophils # Seg Neutrophils # Man Lymphocytes # (Manual) Monocytes # (Manual) PT INR APTT D-Dimer Heparin Anti-Xa Level ABG pH 7.238 L POC ABG pCO2 71.9 H POC ABG pO2 53.6 L ABG pO2 ABG HCO3 ABG O2 Saturation ABG Base Excess ABG Hemoglobin ABG Oxyhemoglobin 84.8 L ABG Sodium 134.2 L ABG Potassium 4.9 H ABG Glucose 306 H Oxyhemoglobin Carboxyhemoglobin Sodium Potassium Chloride Carbon Dioxide BUN Creatinine Glucose POC Glucose 374 H 308 H Lactic Acid Calcium Phosphorus Magnesium Ferritin Lactate Dehydrogenase C-Reactive Protein NT-Pro-B Natriuret Pep Total Protein Albumin Triglycerides Arterial Blood Glucose 306 H Urine pH Ur Specific [place] Coronavirus (PCR) 03/13/21 03/13/21 03/13/21 05:22 05:44 05:44 WBC 13.9 H RBC Hgb Hct MCV MCHC RDW Plt Count Lymph % (Auto) [place] % (Auto) Lymph # (Auto) [place] # (Auto) Seg Neutrophils % Seg Neuts % (Manual) Lymphocytes % (Manual) Monocytes % (Manual) Nucleated RBC % Seg Neutrophils # Seg Neutrophils # Man Lymphocytes # (Manual) Monocytes # (Manual) PT INR APTT D-Dimer 3567.97 H Heparin Anti-Xa Level ABG pH POC ABG pCO2 POC ABG pO2 ABG pO2 ABG HCO3 ABG O2 Saturation ABG Base Excess ABG Hemoglobin ABG Oxyhemoglobin ABG Sodium ABG Potassium ABG Glucose Oxyhemoglobin Carboxyhemoglobin Sodium Potassium Chloride Carbon Dioxide BUN Creatinine Glucose POC Glucose 316 H Lactic Acid Calcium Phosphorus Magnesium Ferritin Lactate Dehydrogenase C-Reactive Protein NT-Pro-B Natriuret Pep Total Protein Albumin Triglycerides Arterial Blood Glucose Urine pH Ur Specific [place] Coronavirus (PCR) 03/13/21 03/13/21 03/13/21 05:44 05:44 11:15 WBC RBC Hgb Hct MCV MCHC RDW Plt Count Lymph % (Auto) [place] % (Auto) Lymph # (Auto) [place] # (Auto) Seg Neutrophils % Seg Neuts % (Manual) Lymphocytes % (Manual) Monocytes % (Manual) Nucleated RBC % Seg Neutrophils # Seg Neutrophils # Man Lymphocytes # (Manual) Monocytes # (Manual) PT INR APTT D-Dimer Heparin Anti-Xa Level ABG pH 7.310 L POC ABG pCO2 POC ABG pO2 ABG pO2 52.3 L ABG HCO3 34.1 H ABG O2 Saturation 86.8 L ABG Base Excess 5.5 H ABG Hemoglobin 13.8 L ABG Oxyhemoglobin ABG Sodium ABG Potassium ABG Glucose Oxyhemoglobin 85.1 L Carboxyhemoglobin Sodium Potassium Chloride Carbon Dioxide BUN Creatinine Glucose POC Glucose Lactic Acid Calcium Phosphorus Magnesium Ferritin 858.7 H Lactate Dehydrogenase 348 H C-Reactive Protein 2.80 H NT-Pro-B Natriuret Pep Total Protein Albumin Triglycerides Arterial Blood Glucose Urine pH Ur Specific [place] Coronavirus (PCR) 03/13/21 03/13/21 03/13/21 11:21 15:47 19:23 WBC RBC Hgb Hct MCV MCHC RDW Plt Count Lymph % (Auto) [place] % (Auto) Lymph # (Auto) [place] # (Auto) Seg Neutrophils % Seg Neuts % (Manual) Lymphocytes % (Manual) Monocytes % (Manual) Nucleated RBC % Seg Neutrophils # Seg Neutrophils # Man Lymphocytes # (Manual) Monocytes # (Manual) PT INR APTT D-Dimer Heparin Anti-Xa Level ABG pH POC ABG pCO2 POC ABG pO2 ABG pO2 ABG HCO3 ABG O2 Saturation ABG Base Excess ABG Hemoglobin ABG Oxyhemoglobin ABG Sodium ABG Potassium ABG Glucose Oxyhemoglobin Carboxyhemoglobin Sodium 136 L Potassium 5.9 H Chloride Carbon Dioxide BUN 50 H Creatinine Glucose 397 H POC Glucose 322 H 317 H Lactic Acid Calcium Phosphorus Magnesium Ferritin Lactate Dehydrogenase C-Reactive Protein NT-Pro-B Natriuret Pep Total Protein Albumin Triglycerides Arterial Blood Glucose Urine pH Ur Specific [place] Coronavirus (PCR) 03/13/21 03/14/21 03/14/21 23:46 05:32 05:50 WBC 11.6 H RBC Hgb Hct MCV MCHC RDW Plt Count Lymph % (Auto) [place] % (Auto) Lymph # (Auto) [place] # (Auto) Seg Neutrophils % Seg Neuts % (Manual) Lymphocytes % (Manual) Monocytes % (Manual) Nucleated RBC % Seg Neutrophils # Seg Neutrophils # Man Lymphocytes # (Manual) Monocytes # (Manual) PT INR APTT D-Dimer Heparin Anti-Xa Level ABG pH POC ABG pCO2 POC ABG pO2 ABG pO2 ABG HCO3 ABG O2 Saturation ABG Base Excess ABG Hemoglobin ABG Oxyhemoglobin ABG Sodium ABG Potassium ABG Glucose Oxyhemoglobin Carboxyhemoglobin Sodium Potassium Chloride Carbon Dioxide BUN Creatinine Glucose POC Glucose 332 H 316 H Lactic Acid Calcium Phosphorus Magnesium Ferritin Lactate Dehydrogenase C-Reactive Protein NT-Pro-B Natriuret Pep Total Protein Albumin Triglycerides Arterial Blood Glucose Urine pH Ur Specific [place] Coronavirus (PCR) 03/14/21 03/14/21 03/14/21 05:50 11:33 16:53 WBC RBC Hgb Hct MCV MCHC RDW Plt Count Lymph % (Auto) [place] % (Auto) Lymph # (Auto) [place] # (Auto) Seg Neutrophils % Seg Neuts % (Manual) Lymphocytes % (Manual) Monocytes % (Manual) Nucleated RBC % Seg Neutrophils # Seg Neutrophils # Man Lymphocytes # (Manual) Monocytes # (Manual) PT INR APTT D-Dimer Heparin Anti-Xa Level ABG pH POC ABG pCO2 POC ABG pO2 ABG pO2 ABG HCO3 ABG O2 Saturation ABG Base Excess ABG Hemoglobin ABG Oxyhemoglobin ABG Sodium ABG Potassium ABG Glucose Oxyhemoglobin Carboxyhemoglobin Sodium Potassium 5.9 H Chloride Carbon Dioxide 31 H BUN 48 H Creatinine Glucose 380 H POC Glucose 315 H 235 H Lactic Acid Calcium Phosphorus Magnesium 3.40 H Ferritin Lactate Dehydrogenase C-Reactive Protein NT-Pro-B Natriuret Pep Total Protein Albumin Triglycerides Arterial Blood Glucose Urine pH Ur Specific [place] Coronavirus (PCR) 03/14/21 03/14/21 03/15/21 18:34 23:27 01:22 WBC RBC Hgb Hct 46.3 H MCV MCHC RDW Plt Count Lymph % (Auto) [place] % (Auto) Lymph # (Auto) [place] # (Auto) Seg Neutrophils % Seg Neuts % (Manual) Lymphocytes % (Manual) Monocytes % (Manual) Nucleated RBC % Seg Neutrophils # Seg Neutrophils # Man Lymphocytes # (Manual) Monocytes # (Manual) PT INR APTT D-Dimer Heparin Anti-Xa Level ABG pH POC ABG pCO2 POC ABG pO2 ABG pO2 ABG HCO3 ABG O2 Saturation ABG Base Excess ABG Hemoglobin ABG Oxyhemoglobin ABG Sodium ABG Potassium ABG Glucose Oxyhemoglobin Carboxyhemoglobin Sodium 146 H Potassium Chloride Carbon Dioxide 34 H BUN 49 H Creatinine Glucose 285 H POC Glucose 203 H Lactic Acid Calcium Phosphorus Magnesium Ferritin Lactate Dehydrogenase C-Reactive Protein NT-Pro-B Natriuret Pep Total Protein Albumin Triglycerides Arterial Blood Glucose Urine pH Ur Specific [place] Coronavirus (PCR) 03/15/21 03/15/21 03/15/21 04:00 06:06 06:06 WBC RBC Hgb Hct MCV MCHC RDW Plt Count Lymph % (Auto) [place] % (Auto) Lymph # (Auto) [place] # (Auto) Seg Neutrophils % Seg Neuts % (Manual) Lymphocytes % (Manual) Monocytes % (Manual) Nucleated RBC % Seg Neutrophils # Seg Neutrophils # Man Lymphocytes # (Manual) Monocytes # (Manual) PT INR APTT D-Dimer 1781.79 H Heparin Anti-Xa Level ABG pH POC ABG pCO2 POC ABG pO2 ABG pO2 ABG HCO3 ABG O2 Saturation ABG Base Excess ABG Hemoglobin ABG Oxyhemoglobin ABG Sodium ABG Potassium ABG Glucose Oxyhemoglobin Carboxyhemoglobin Sodium 148 H Potassium 5.7 H D Chloride 108.0 H Carbon Dioxide 31 H BUN 46 H Creatinine Glucose 139 H POC Glucose Lactic Acid Calcium Phosphorus 4.80 H D Magnesium 3.00 H Ferritin 976.4 H Lactate Dehydrogenase 630 H C-Reactive Protein NT-Pro-B Natriuret Pep Total Protein Albumin Triglycerides Arterial Blood Glucose Urine pH Ur Specific [place] Coronavirus (PCR) 03/15/21 03/15/21 03/15/21 11:56 14:05 17:09 WBC RBC Hgb Hct MCV MCHC RDW Plt Count Lymph % (Auto) [place] % (Auto) Lymph # (Auto) [place] # (Auto) Seg Neutrophils % Seg Neuts % (Manual) Lymphocytes % (Manual) Monocytes % (Manual) Nucleated RBC % Seg Neutrophils # Seg Neutrophils # Man Lymphocytes # (Manual) Monocytes # (Manual) PT INR APTT D-Dimer Heparin Anti-Xa Level ABG pH POC ABG pCO2 POC ABG pO2 ABG pO2 52.1 L ABG HCO3 36.6 H ABG O2 Saturation 87.6 L ABG Base Excess 9.5 H ABG Hemoglobin ABG Oxyhemoglobin ABG Sodium ABG Potassium ABG Glucose Oxyhemoglobin 85.7 L Carboxyhemoglobin Sodium Potassium Chloride Carbon Dioxide BUN Creatinine Glucose POC Glucose 219 H 263 H Lactic Acid Calcium Phosphorus Magnesium Ferritin Lactate Dehydrogenase C-Reactive Protein NT-Pro-B Natriuret Pep Total Protein Albumin Triglycerides Arterial Blood Glucose Urine pH Ur Specific [place] Coronavirus (PCR) 03/16/21 03/16/21 03/16/21 00:32 04:11 04:11 WBC 11.9 H RBC Hgb Hct MCV MCHC 30 L RDW Plt Count Lymph % (Auto) [place] % (Auto) Lymph # (Auto) [place] # (Auto) Seg Neutrophils % Seg Neuts % (Manual) Lymphocytes % (Manual) Monocytes % (Manual) Nucleated RBC % Seg Neutrophils # Seg Neutrophils # Man Lymphocytes # (Manual) Monocytes # (Manual) PT INR APTT D-Dimer Heparin Anti-Xa Level ABG pH POC ABG pCO2 POC ABG pO2 ABG pO2 ABG HCO3 ABG O2 Saturation ABG Base Excess ABG Hemoglobin ABG Oxyhemoglobin ABG Sodium ABG Potassium ABG Glucose Oxyhemoglobin Carboxyhemoglobin Sodium 151 H Potassium Chloride Carbon Dioxide 35 H BUN 48 H Creatinine Glucose 152 H POC Glucose 165 H Lactic Acid Calcium Phosphorus Magnesium Ferritin Lactate Dehydrogenase C-Reactive Protein NT-Pro-B Natriuret Pep Total Protein Albumin Triglycerides Arterial Blood Glucose Urine pH Ur Specific [place] Coronavirus (PCR) 03/16/21 03/16/21 03/16/21 04:11 05:26 11:35 WBC RBC Hgb Hct MCV MCHC RDW Plt Count Lymph % (Auto) [place] % (Auto) Lymph # (Auto) [place] # (Auto) Seg Neutrophils % Seg Neuts % (Manual) Lymphocytes % (Manual) Monocytes % (Manual) Nucleated RBC % Seg Neutrophils # Seg Neutrophils # Man Lymphocytes # (Manual) Monocytes # (Manual) PT INR APTT D-Dimer Heparin Anti-Xa Level ABG pH POC ABG pCO2 POC ABG pO2 ABG pO2 ABG HCO3 ABG O2 Saturation ABG Base Excess ABG Hemoglobin ABG Oxyhemoglobin ABG Sodium ABG Potassium ABG Glucose Oxyhemoglobin Carboxyhemoglobin Sodium Potassium Chloride Carbon Dioxide BUN Creatinine Glucose POC Glucose 162 H 187 H Lactic Acid Calcium Phosphorus Magnesium Ferritin Lactate Dehydrogenase C-Reactive Protein NT-Pro-B Natriuret Pep Total Protein Albumin Triglycerides 267 H Arterial Blood Glucose Urine pH Ur Specific [place] Coronavirus (PCR) 03/16/21 03/16/21 03/16/21 17:29 22:25 23:22 WBC RBC Hgb Hct MCV MCHC RDW Plt Count Lymph % (Auto) [place] % (Auto) Lymph # (Auto) [place] # (Auto) Seg Neutrophils % Seg Neuts % (Manual) Lymphocytes % (Manual) Monocytes % (Manual) Nucleated RBC % Seg Neutrophils # Seg Neutrophils # Man Lymphocytes # (Manual) Monocytes # (Manual) PT INR APTT D-Dimer Heparin Anti-Xa Level ABG pH POC ABG pCO2 POC ABG pO2 ABG pO2 ABG HCO3 ABG O2 Saturation ABG Base Excess ABG Hemoglobin ABG Oxyhemoglobin ABG Sodium ABG Potassium ABG Glucose Oxyhemoglobin Carboxyhemoglobin Sodium Potassium Chloride Carbon Dioxide BUN Creatinine Glucose POC Glucose 237 H 165 H 189 H Lactic Acid Calcium Phosphorus Magnesium Ferritin Lactate Dehydrogenase C-Reactive Protein NT-Pro-B Natriuret Pep Total Protein Albumin Triglycerides Arterial Blood Glucose Urine pH Ur Specific [place] Coronavirus (PCR) 03/17/21 03/17/21 03/17/21 04:40 04:40 04:40 WBC 14.1 H RBC Hgb Hct MCV MCHC RDW 15.3 H Plt Count Lymph % (Auto) 12.6 L [place] % (Auto) 11.3 H Lymph # (Auto) [place] # (Auto) 1.6 H Seg Neutrophils % 74.9 H Seg Neuts % (Manual) Lymphocytes % (Manual) Monocytes % (Manual) Nucleated RBC % Seg Neutrophils # 10.5 H Seg Neutrophils # Man Lymphocytes # (Manual) Monocytes # (Manual) PT INR APTT D-Dimer 1359.12 H Heparin Anti-Xa Level ABG pH POC ABG pCO2 POC ABG pO2 ABG pO2 ABG HCO3 ABG O2 Saturation ABG Base Excess ABG Hemoglobin ABG Oxyhemoglobin ABG Sodium ABG Potassium ABG Glucose Oxyhemoglobin Carboxyhemoglobin Sodium 148 H Potassium Chloride 107.5 H Carbon Dioxide 33 H BUN 42 H Creatinine Glucose 183 H POC Glucose Lactic Acid Calcium Phosphorus Magnesium 2.70 H Ferritin Lactate Dehydrogenase C-Reactive Protein NT-Pro-B Natriuret Pep Total Protein Albumin Triglycerides Arterial Blood Glucose Urine pH Ur Specific [place] Coronavirus (PCR) 03/17/21 03/17/21 03/17/21 05:53 11:05 11:51 WBC RBC Hgb Hct MCV MCHC RDW Plt Count Lymph % (Auto) [place] % (Auto) Lymph # (Auto) [place] # (Auto) Seg Neutrophils % Seg Neuts % (Manual) Lymphocytes % (Manual) Monocytes % (Manual) Nucleated RBC % Seg Neutrophils # Seg Neutrophils # Man Lymphocytes # (Manual) Monocytes # (Manual) PT INR APTT D-Dimer Heparin Anti-Xa Level ABG pH POC ABG pCO2 POC ABG pO2 ABG pO2 ABG HCO3 35.7 H ABG O2 Saturation ABG Base Excess 8.7 H ABG Hemoglobin ABG Oxyhemoglobin ABG Sodium ABG Potassium ABG Glucose Oxyhemoglobin 94.2 L Carboxyhemoglobin Sodium Potassium Chloride Carbon Dioxide BUN Creatinine Glucose POC Glucose 176 H 197 H Lactic Acid Calcium Phosphorus Magnesium Ferritin Lactate Dehydrogenase C-Reactive Protein NT-Pro-B Natriuret Pep Total Protein Albumin Triglycerides Arterial Blood Glucose Urine pH Ur Specific [place] Coronavirus (PCR) 03/17/21 03/17/21 03/17/21 16:54 21:10 23:33 WBC RBC Hgb Hct MCV MCHC RDW Plt Count Lymph % (Auto) [place] % (Auto) Lymph # (Auto) [place] # (Auto) Seg Neutrophils % Seg Neuts % (Manual) Lymphocytes % (Manual) Monocytes % (Manual) Nucleated RBC % Seg Neutrophils # Seg Neutrophils # Man Lymphocytes # (Manual) Monocytes # (Manual) PT INR APTT D-Dimer Heparin Anti-Xa Level ABG pH POC ABG pCO2 POC ABG pO2 ABG pO2 ABG HCO3 ABG O2 Saturation ABG Base Excess ABG Hemoglobin ABG Oxyhemoglobin ABG Sodium ABG Potassium ABG Glucose Oxyhemoglobin Carboxyhemoglobin Sodium Potassium Chloride Carbon Dioxide BUN Creatinine Glucose POC Glucose 135 H 160 H 138 H Lactic Acid Calcium Phosphorus Magnesium Ferritin Lactate Dehydrogenase C-Reactive Protein NT-Pro-B Natriuret Pep Total Protein Albumin Triglycerides Arterial Blood Glucose Urine pH Ur Specific [place] Coronavirus (PCR) 03/18/21 03/18/21 03/18/21 04:18 04:50 05:43 WBC RBC Hgb Hct MCV MCHC RDW Plt Count Lymph % (Auto) [place] % (Auto) Lymph # (Auto) [place] # (Auto) Seg Neutrophils % Seg Neuts % (Manual) Lymphocytes % (Manual) Monocytes % (Manual) Nucleated RBC % Seg Neutrophils # Seg Neutrophils # Man Lymphocytes # (Manual) Monocytes # (Manual) PT INR APTT D-Dimer Heparin Anti-Xa Level ABG pH POC ABG pCO2 POC ABG pO2 ABG pO2 59.8 L ABG HCO3 36.5 H ABG O2 Saturation 90.7 L ABG Base Excess 9.4 H ABG Hemoglobin 12.0 L ABG Oxyhemoglobin ABG Sodium ABG Potassium ABG Glucose Oxyhemoglobin 88.9 L Carboxyhemoglobin Sodium Potassium Chloride 107.2 H Carbon Dioxide 34 H BUN 38 H Creatinine 0.7 L Glucose 136 H POC Glucose 128 H Lactic Acid Calcium Phosphorus Magnesium Ferritin Lactate Dehydrogenase C-Reactive Protein NT-Pro-B Natriuret Pep Total Protein Albumin Triglycerides Arterial Blood Glucose Urine pH Ur Specific [place] Coronavirus (PCR) 03/18/21 03/18/21 03/18/21 11:20 17:35 23:35 WBC RBC Hgb Hct MCV MCHC RDW Plt Count Lymph % (Auto) [place] % (Auto) Lymph # (Auto) [place] # (Auto) Seg Neutrophils % Seg Neuts % (Manual) Lymphocytes % (Manual) Monocytes % (Manual) Nucleated RBC % Seg Neutrophils # Seg Neutrophils # Man Lymphocytes # (Manual) Monocytes # (Manual) PT INR APTT D-Dimer Heparin Anti-Xa Level ABG pH POC ABG pCO2 POC ABG pO2 ABG pO2 70.7 L ABG HCO3 33.6 H ABG O2 Saturation ABG Base Excess 8.0 H ABG Hemoglobin ABG Oxyhemoglobin ABG Sodium ABG Potassium ABG Glucose Oxyhemoglobin 93.7 L Carboxyhemoglobin Sodium Potassium Chloride Carbon Dioxide BUN Creatinine Glucose POC Glucose 189 H 144 H Lactic Acid Calcium Phosphorus Magnesium Ferritin Lactate Dehydrogenase C-Reactive Protein NT-Pro-B Natriuret Pep Total Protein Albumin Triglycerides Arterial Blood Glucose Urine pH Ur Specific [place] Coronavirus (PCR) 03/19/21 03/19/21 03/19/21 02:35 04:20 04:20 WBC 14.0 H RBC Hgb Hct MCV MCHC RDW Plt Count Lymph % (Auto) [place] % (Auto) Lymph # (Auto) [place] # (Auto) Seg Neutrophils % Seg Neuts % (Manual) Lymphocytes % (Manual) Monocytes % (Manual) Nucleated RBC % Seg Neutrophils # Seg Neutrophils # Man Lymphocytes # (Manual) Monocytes # (Manual) PT INR APTT D-Dimer Heparin Anti-Xa Level ABG pH POC ABG pCO2 POC ABG pO2 ABG pO2 ABG HCO3 32.0 H ABG O2 Saturation ABG Base Excess 5.2 H ABG Hemoglobin 13.6 L ABG Oxyhemoglobin ABG Sodium ABG Potassium ABG Glucose Oxyhemoglobin 94.6 L Carboxyhemoglobin Sodium 146 H Potassium Chloride 109.3 H Carbon Dioxide BUN 36 H Creatinine Glucose 203 H POC Glucose Lactic Acid Calcium Phosphorus Magnesium Ferritin Lactate Dehydrogenase C-Reactive Protein NT-Pro-B Natriuret Pep Total Protein Albumin Triglycerides 254 H Arterial Blood Glucose Urine pH Ur Specific [place] Coronavirus (PCR) 03/19/21 03/19/21 03/19/21 05:45 11:36 23:51 WBC RBC Hgb Hct MCV MCHC RDW Plt Count Lymph % (Auto) [place] % (Auto) Lymph # (Auto) [place] # (Auto) Seg Neutrophils % Seg Neuts % (Manual) Lymphocytes % (Manual) Monocytes % (Manual) Nucleated RBC % Seg Neutrophils # Seg Neutrophils # Man Lymphocytes # (Manual) Monocytes # (Manual) PT INR APTT D-Dimer Heparin Anti-Xa Level ABG pH POC ABG pCO2 POC ABG pO2 ABG pO2 ABG HCO3 ABG O2 Saturation ABG Base Excess ABG Hemoglobin ABG Oxyhemoglobin ABG Sodium ABG Potassium ABG Glucose Oxyhemoglobin Carboxyhemoglobin Sodium Potassium Chloride Carbon Dioxide BUN Creatinine Glucose POC Glucose 164 H 172 H 140 H Lactic Acid Calcium Phosphorus Magnesium Ferritin Lactate Dehydrogenase C-Reactive Protein NT-Pro-B Natriuret Pep Total Protein Albumin Triglycerides Arterial Blood Glucose Urine pH Ur Specific [place] Coronavirus (PCR) 03/20/21 03/20/21 03/20/21 03:29 04:45 04:45 WBC RBC Hgb Hct MCV 95 H MCHC RDW 15.7 H Plt Count Lymph % (Auto) [place] % (Auto) Lymph # (Auto) [place] # (Auto) Seg Neutrophils % Seg Neuts % (Manual) Lymphocytes % (Manual) Monocytes % (Manual) Nucleated RBC % Seg Neutrophils # Seg Neutrophils # Man Lymphocytes # (Manual) Monocytes # (Manual) PT INR APTT D-Dimer Heparin Anti-Xa Level ABG pH 7.349 L POC ABG pCO2 POC ABG pO2 ABG pO2 ABG HCO3 33.7 H ABG O2 Saturation ABG Base Excess 6.4 H ABG Hemoglobin 11.8 L ABG Oxyhemoglobin ABG Sodium ABG Potassium ABG Glucose Oxyhemoglobin 93.9 L Carboxyhemoglobin Sodium 146 H Potassium 5.5 H Chloride 111.1 H Carbon Dioxide BUN 34 H Creatinine 0.7 L Glucose 145 H POC Glucose Lactic Acid Calcium Phosphorus Magnesium 2.50 H Ferritin Lactate Dehydrogenase C-Reactive Protein NT-Pro-B Natriuret Pep Total Protein Albumin Triglycerides Arterial Blood Glucose Urine pH Ur Specific [place] Coronavirus (PCR) 03/20/21 03/20/21 03/20/21 05:41 09:08 11:54 WBC RBC Hgb Hct MCV MCHC RDW Plt Count Lymph % (Auto) [place] % (Auto) Lymph # (Auto) [place] # (Auto) Seg Neutrophils % Seg Neuts % (Manual) Lymphocytes % (Manual) Monocytes % (Manual) Nucleated RBC % Seg Neutrophils # Seg Neutrophils # Man Lymphocytes # (Manual) Monocytes # (Manual) PT INR APTT D-Dimer Heparin Anti-Xa Level ABG pH POC ABG pCO2 POC ABG pO2 ABG pO2 ABG HCO3 ABG O2 Saturation ABG Base Excess ABG Hemoglobin ABG Oxyhemoglobin ABG Sodium ABG Potassium ABG Glucose Oxyhemoglobin Carboxyhemoglobin Sodium Potassium Chloride Carbon Dioxide BUN Creatinine Glucose POC Glucose 108 H 132 H 162 H Lactic Acid Calcium Phosphorus Magnesium Ferritin Lactate Dehydrogenase C-Reactive Protein NT-Pro-B Natriuret Pep Total Protein Albumin Triglycerides Arterial Blood Glucose Urine pH Ur Specific [place] Coronavirus (PCR) 03/20/21 03/21/21 03/21/21 17:28 00:31 04:44 WBC RBC Hgb Hct MCV MCHC RDW Plt Count Lymph % (Auto) [place] % (Auto) Lymph # (Auto) [place] # (Auto) Seg Neutrophils % Seg Neuts % (Manual) Lymphocytes % (Manual) Monocytes % (Manual) Nucleated RBC % Seg Neutrophils # Seg Neutrophils # Man Lymphocytes # (Manual) Monocytes # (Manual) PT INR APTT D-Dimer Heparin Anti-Xa Level ABG pH POC ABG pCO2 POC ABG pO2 ABG pO2 ABG HCO3 ABG O2 Saturation ABG Base Excess ABG Hemoglobin ABG Oxyhemoglobin ABG Sodium ABG Potassium ABG Glucose Oxyhemoglobin Carboxyhemoglobin Sodium Potassium Chloride 108.3 H Carbon Dioxide BUN 30 H Creatinine 0.7 L Glucose POC Glucose 160 H 122 H Lactic Acid Calcium Phosphorus Magnesium Ferritin Lactate Dehydrogenase C-Reactive Protein NT-Pro-B Natriuret Pep Total Protein Albumin Triglycerides Arterial Blood Glucose Urine pH Ur Specific [place] Coronavirus (PCR) 03/21/21 03/21/21 03/21/21 09:18 10:09 13:20 WBC RBC Hgb Hct MCV MCHC RDW Plt Count Lymph % (Auto) [place] % (Auto) Lymph # (Auto) [place] # (Auto) Seg Neutrophils % Seg Neuts % (Manual) Lymphocytes % (Manual) Monocytes % (Manual) Nucleated RBC % Seg Neutrophils # Seg Neutrophils # Man Lymphocytes # (Manual) Monocytes # (Manual) PT INR APTT D-Dimer Heparin Anti-Xa Level ABG pH POC ABG pCO2 POC ABG pO2 ABG pO2 60.7 L ABG HCO3 30.6 H ABG O2 Saturation 93.6 L ABG Base Excess 5.3 H ABG Hemoglobin ABG Oxyhemoglobin ABG Sodium ABG Potassium ABG Glucose Oxyhemoglobin 91.7 L Carboxyhemoglobin Sodium Potassium Chloride Carbon Dioxide BUN Creatinine Glucose POC Glucose 169 H 122 H Lactic Acid Calcium Phosphorus Magnesium Ferritin Lactate Dehydrogenase C-Reactive Protein NT-Pro-B Natriuret Pep Total Protein Albumin Triglycerides Arterial Blood Glucose Urine pH Ur Specific [place] Coronavirus (PCR) 03/21/21 03/21/21 03/21/21 17:25 22:41 23:52 WBC RBC Hgb Hct MCV MCHC RDW Plt Count Lymph % (Auto) [place] % (Auto) Lymph # (Auto) [place] # (Auto) Seg Neutrophils % Seg Neuts % (Manual) Lymphocytes % (Manual) Monocytes % (Manual) Nucleated RBC % Seg Neutrophils # Seg Neutrophils # Man Lymphocytes # (Manual) Monocytes # (Manual) PT INR APTT D-Dimer Heparin Anti-Xa Level ABG pH POC ABG pCO2 POC ABG pO2 ABG pO2 ABG HCO3 ABG O2 Saturation ABG Base Excess ABG Hemoglobin ABG Oxyhemoglobin ABG Sodium ABG Potassium ABG Glucose Oxyhemoglobin Carboxyhemoglobin Sodium Potassium Chloride Carbon Dioxide BUN Creatinine Glucose POC Glucose 121 H 139 H 140 H Lactic Acid Calcium Phosphorus Magnesium Ferritin Lactate Dehydrogenase C-Reactive Protein NT-Pro-B Natriuret Pep Total Protein Albumin Triglycerides Arterial Blood Glucose Urine pH Ur Specific [place] Coronavirus (PCR) 03/22/21 03/22/21 03/22/21 05:58 07:26 07:26 WBC RBC Hgb Hct MCV MCHC 31 L RDW 16.1 H Plt Count Lymph % (Auto) [place] % (Auto) Lymph # (Auto) [place] # (Auto) Seg Neutrophils % Seg Neuts % (Manual) Lymphocytes % (Manual) Monocytes % (Manual) Nucleated RBC % Seg Neutrophils # Seg Neutrophils # Man Lymphocytes # (Manual) Monocytes # (Manual) PT INR APTT D-Dimer Heparin Anti-Xa Level ABG pH POC ABG pCO2 POC ABG pO2 ABG pO2 ABG HCO3 ABG O2 Saturation ABG Base Excess ABG Hemoglobin ABG Oxyhemoglobin ABG Sodium ABG Potassium ABG Glucose Oxyhemoglobin Carboxyhemoglobin Sodium Potassium Chloride 108.5 H Carbon Dioxide BUN 44 H Creatinine Glucose 120 H POC Glucose 131 H Lactic Acid Calcium Phosphorus 5.80 H Magnesium 2.80 H Ferritin Lactate Dehydrogenase C-Reactive Protein NT-Pro-B Natriuret Pep Total Protein Albumin Triglycerides 305 H Arterial Blood Glucose Urine pH Ur Specific [place] Coronavirus (PCR) 03/22/21 03/22/21 03/22/21 09:38 11:15 16:01 WBC RBC Hgb Hct MCV MCHC RDW Plt Count Lymph % (Auto) [place] % (Auto) Lymph # (Auto) [place] # (Auto) Seg Neutrophils % Seg Neuts % (Manual) Lymphocytes % (Manual) Monocytes % (Manual) Nucleated RBC % Seg Neutrophils # Seg Neutrophils # Man Lymphocytes # (Manual) Monocytes # (Manual) PT INR APTT D-Dimer Heparin Anti-Xa Level ABG pH POC ABG pCO2 POC ABG pO2 ABG pO2 70.0 L ABG HCO3 30.0 H ABG O2 Saturation 94.6 L ABG Base Excess 3.6 H ABG Hemoglobin 13.5 L ABG Oxyhemoglobin ABG Sodium ABG Potassium ABG Glucose Oxyhemoglobin 92.5 L Carboxyhemoglobin Sodium Potassium Chloride Carbon Dioxide BUN Creatinine Glucose POC Glucose 186 H 148 H Lactic Acid Calcium Phosphorus Magnesium Ferritin Lactate Dehydrogenase C-Reactive Protein NT-Pro-B Natriuret Pep Total Protein Albumin Triglycerides Arterial Blood Glucose Urine pH Ur Specific [place] Coronavirus (PCR) 03/22/21 03/22/21 03/23/21 21:13 23:48 07:04 WBC 11.7 H RBC Hgb Hct MCV 95 H MCHC RDW 16.1 H Plt Count Lymph % (Auto) [place] % (Auto) Lymph # (Auto) [place] # (Auto) Seg Neutrophils % Seg Neuts % (Manual) Lymphocytes % (Manual) Monocytes % (Manual) Nucleated RBC % Seg Neutrophils # Seg Neutrophils # Man Lymphocytes # (Manual) Monocytes # (Manual) PT INR APTT D-Dimer Heparin Anti-Xa Level ABG pH POC ABG pCO2 POC ABG pO2 ABG pO2 ABG HCO3 ABG O2 Saturation ABG Base Excess ABG Hemoglobin ABG Oxyhemoglobin ABG Sodium ABG Potassium ABG Glucose Oxyhemoglobin Carboxyhemoglobin Sodium Potassium Chloride Carbon Dioxide BUN Creatinine Glucose POC Glucose 121 H 114 H Lactic Acid Calcium Phosphorus Magnesium Ferritin Lactate Dehydrogenase C-Reactive Protein NT-Pro-B Natriuret Pep Total Protein Albumin Triglycerides Arterial Blood Glucose Urine pH Ur Specific [place] Coronavirus (PCR) 03/23/21 03/23/21 03/23/21 07:04 08:35 11:19 WBC RBC Hgb Hct MCV MCHC RDW Plt Count Lymph % (Auto) [place] % (Auto) Lymph # (Auto) [place] # (Auto) Seg Neutrophils % Seg Neuts % (Manual) Lymphocytes % (Manual) Monocytes % (Manual) Nucleated RBC % Seg Neutrophils # Seg Neutrophils # Man Lymphocytes # (Manual) Monocytes # (Manual) PT INR APTT D-Dimer Heparin Anti-Xa Level ABG pH 7.345 L POC ABG pCO2 POC ABG pO2 ABG pO2 167.9 H ABG HCO3 32.2 H ABG O2 Saturation ABG Base Excess 4.8 H ABG Hemoglobin 13.4 L ABG Oxyhemoglobin ABG Sodium ABG Potassium ABG Glucose Oxyhemoglobin Carboxyhemoglobin Sodium 148 H Potassium Chloride 111.3 H Carbon Dioxide 31 H BUN 31 H Creatinine Glucose 131 H POC Glucose 165 H Lactic Acid Calcium Phosphorus Magnesium 2.50 H Ferritin Lactate Dehydrogenase C-Reactive Protein NT-Pro-B Natriuret Pep Total Protein Albumin Triglycerides Arterial Blood Glucose Urine pH Ur Specific [place] Coronavirus (PCR) 03/23/21 03/23/21 03/24/21 16:48 20:52 00:07 WBC RBC Hgb Hct MCV MCHC RDW Plt Count Lymph % (Auto) [place] % (Auto) Lymph # (Auto) [place] # (Auto) Seg Neutrophils % Seg Neuts % (Manual) Lymphocytes % (Manual) Monocytes % (Manual) Nucleated RBC % Seg Neutrophils # Seg Neutrophils # Man Lymphocytes # (Manual) Monocytes # (Manual) PT INR APTT D-Dimer Heparin Anti-Xa Level ABG pH POC ABG pCO2 POC ABG pO2 ABG pO2 ABG HCO3 ABG O2 Saturation ABG Base Excess ABG Hemoglobin ABG Oxyhemoglobin ABG Sodium ABG Potassium ABG Glucose Oxyhemoglobin Carboxyhemoglobin Sodium Potassium Chloride Carbon Dioxide BUN Creatinine Glucose POC Glucose 160 H 127 H 147 H Lactic Acid Calcium Phosphorus Magnesium Ferritin Lactate Dehydrogenase C-Reactive Protein NT-Pro-B Natriuret Pep Total Protein Albumin Triglycerides Arterial Blood Glucose Urine pH Ur Specific [place] Coronavirus (PCR) 03/24/21 03/24/21 03/24/21 04:34 04:34 05:20 WBC 13.3 H RBC Hgb Hct MCV MCHC 31 L RDW 16.1 H Plt Count Lymph % (Auto) [place] % (Auto) Lymph # (Auto) [place] # (Auto) Seg Neutrophils % Seg Neuts % (Manual) Lymphocytes % (Manual) Monocytes % (Manual) Nucleated RBC % Seg Neutrophils # Seg Neutrophils # Man Lymphocytes # (Manual) Monocytes # (Manual) PT INR APTT D-Dimer Heparin Anti-Xa Level ABG pH POC ABG pCO2 POC ABG pO2 ABG pO2 ABG HCO3 ABG O2 Saturation ABG Base Excess ABG Hemoglobin ABG Oxyhemoglobin ABG Sodium ABG Potassium ABG Glucose Oxyhemoglobin Carboxyhemoglobin Sodium Potassium 5.2 H Chloride Carbon Dioxide BUN 28 H Creatinine 0.7 L Glucose 152 H POC Glucose 141 H Lactic Acid Calcium Phosphorus Magnesium Ferritin Lactate Dehydrogenase C-Reactive Protein NT-Pro-B Natriuret Pep Total Protein Albumin Triglycerides Arterial Blood Glucose Urine pH Ur Specific [place] Coronavirus (PCR) 03/24/21 03/24/21 03/24/21 09:40 11:38 16:45 WBC RBC Hgb Hct MCV MCHC RDW Plt Count Lymph % (Auto) [place] % (Auto) Lymph # (Auto) [place] # (Auto) Seg Neutrophils % Seg Neuts % (Manual) Lymphocytes % (Manual) Monocytes % (Manual) Nucleated RBC % Seg Neutrophils # Seg Neutrophils # Man Lymphocytes # (Manual) Monocytes # (Manual) PT INR APTT D-Dimer Heparin Anti-Xa Level ABG pH POC ABG pCO2 POC ABG pO2 ABG pO2 ABG HCO3 ABG O2 Saturation ABG Base Excess ABG Hemoglobin ABG Oxyhemoglobin ABG Sodium ABG Potassium ABG Glucose Oxyhemoglobin Carboxyhemoglobin Sodium Potassium Chloride Carbon Dioxide BUN Creatinine Glucose POC Glucose 126 H 136 H 118 H Lactic Acid Calcium Phosphorus Magnesium Ferritin Lactate Dehydrogenase C-Reactive Protein NT-Pro-B Natriuret Pep Total Protein Albumin Triglycerides Arterial Blood Glucose Urine pH Ur Specific [place] Coronavirus (PCR) 03/24/21 03/24/21 03/25/21 21:03 23:49 04:32 WBC RBC Hgb Hct MCV MCHC RDW 16.1 H Plt Count 121 L Lymph % (Auto) [place] % (Auto) Lymph # (Auto) [place] # (Auto) Seg Neutrophils % Seg Neuts % (Manual) Lymphocytes % (Manual) Monocytes % (Manual) Nucleated RBC % Seg Neutrophils # Seg Neutrophils # Man Lymphocytes # (Manual) Monocytes # (Manual) PT INR APTT D-Dimer Heparin Anti-Xa Level ABG pH POC ABG pCO2 POC ABG pO2 ABG pO2 ABG HCO3 ABG O2 Saturation ABG Base Excess ABG Hemoglobin ABG Oxyhemoglobin ABG Sodium ABG Potassium ABG Glucose Oxyhemoglobin Carboxyhemoglobin Sodium Potassium Chloride Carbon Dioxide BUN Creatinine Glucose POC Glucose 116 H 125 H Lactic Acid Calcium Phosphorus Magnesium Ferritin Lactate Dehydrogenase C-Reactive Protein NT-Pro-B Natriuret Pep Total Protein Albumin Triglycerides Arterial Blood Glucose Urine pH Ur Specific [place] Coronavirus (PCR) 03/25/21 03/25/21 03/25/21 04:32 05:21 09:29 WBC RBC Hgb Hct MCV MCHC RDW Plt Count Lymph % (Auto) [place] % (Auto) Lymph # (Auto) [place] # (Auto) Seg Neutrophils % Seg Neuts % (Manual) Lymphocytes % (Manual) Monocytes % (Manual) Nucleated RBC % Seg Neutrophils # Seg Neutrophils # Man Lymphocytes # (Manual) Monocytes # (Manual) PT INR APTT D-Dimer Heparin Anti-Xa Level ABG pH POC ABG pCO2 POC ABG pO2 ABG pO2 ABG HCO3 ABG O2 Saturation ABG Base Excess ABG Hemoglobin ABG Oxyhemoglobin ABG Sodium ABG Potassium ABG Glucose Oxyhemoglobin Carboxyhemoglobin Sodium 135 L D Potassium Chloride Carbon Dioxide BUN 25 H Creatinine 0.7 L Glucose 168 H POC Glucose 149 H 115 H Lactic Acid Calcium Phosphorus Magnesium Ferritin Lactate Dehydrogenase C-Reactive Protein NT-Pro-B Natriuret Pep Total Protein Albumin Triglycerides Arterial Blood Glucose Urine pH Ur Specific [place] Coronavirus (PCR) 03/25/21 03/25/21 03/25/21 12:26 12:35 23:53 WBC RBC Hgb Hct MCV MCHC RDW Plt Count Lymph % (Auto) [place] % (Auto) Lymph # (Auto) [place] # (Auto) Seg Neutrophils % Seg Neuts % (Manual) Lymphocytes % (Manual) Monocytes % (Manual) Nucleated RBC % Seg Neutrophils # Seg Neutrophils # Man Lymphocytes # (Manual) Monocytes # (Manual) PT INR APTT D-Dimer Heparin Anti-Xa Level ABG pH POC ABG pCO2 POC ABG pO2 ABG pO2 100.5 H ABG HCO3 33.6 H ABG O2 Saturation ABG Base Excess 6.4 H ABG Hemoglobin 12.0 L ABG Oxyhemoglobin ABG Sodium ABG Potassium ABG Glucose Oxyhemoglobin Carboxyhemoglobin Sodium Potassium Chloride Carbon Dioxide BUN Creatinine Glucose POC Glucose 108 H 137 H Lactic Acid Calcium Phosphorus Magnesium Ferritin Lactate Dehydrogenase C-Reactive Protein NT-Pro-B Natriuret Pep Total Protein Albumin Triglycerides Arterial Blood Glucose Urine pH Ur Specific [place] Coronavirus (PCR) 03/26/21 03/26/21 03/26/21 05:14 07:09 07:09 WBC RBC Hgb Hct MCV MCHC RDW 16.5 H Plt Count 139 L Lymph % (Auto) [place] % (Auto) Lymph # (Auto) [place] # (Auto) Seg Neutrophils % Seg Neuts % (Manual) Lymphocytes % (Manual) Monocytes % (Manual) Nucleated RBC % Seg Neutrophils # Seg Neutrophils # Man Lymphocytes # (Manual) Monocytes # (Manual) PT INR APTT D-Dimer Heparin Anti-Xa Level ABG pH POC ABG pCO2 POC ABG pO2 ABG pO2 ABG HCO3 ABG O2 Saturation ABG Base Excess ABG Hemoglobin ABG Oxyhemoglobin ABG Sodium ABG Potassium ABG Glucose Oxyhemoglobin Carboxyhemoglobin Sodium Potassium Chloride Carbon Dioxide BUN 22 H Creatinine 0.7 L Glucose 108 H POC Glucose 116 H Lactic Acid Calcium Phosphorus Magnesium Ferritin Lactate Dehydrogenase C-Reactive Protein NT-Pro-B Natriuret Pep Total Protein Albumin Triglycerides Arterial Blood Glucose Urine pH Ur Specific [place] Coronavirus (PCR) 03/26/21 03/26/21 03/26/21 09:51 11:15 16:59 WBC RBC Hgb Hct MCV MCHC RDW Plt Count Lymph % (Auto) [place] % (Auto) Lymph # (Auto) [place] # (Auto) Seg Neutrophils % Seg Neuts % (Manual) Lymphocytes % (Manual) Monocytes % (Manual) Nucleated RBC % Seg Neutrophils # Seg Neutrophils # Man Lymphocytes # (Manual) Monocytes # (Manual) PT INR APTT D-Dimer Heparin Anti-Xa Level ABG pH POC ABG pCO2 POC ABG pO2 ABG pO2 ABG HCO3 ABG O2 Saturation ABG Base Excess ABG Hemoglobin ABG Oxyhemoglobin ABG Sodium ABG Potassium ABG Glucose Oxyhemoglobin Carboxyhemoglobin Sodium Potassium Chloride Carbon Dioxide BUN Creatinine Glucose POC Glucose 107 H 119 H 174 H Lactic Acid Calcium Phosphorus Magnesium Ferritin Lactate Dehydrogenase C-Reactive Protein NT-Pro-B Natriuret Pep Total Protein Albumin Triglycerides Arterial Blood Glucose Urine pH Ur Specific [place] Coronavirus (PCR) 03/26/21 03/27/21 03/27/21 22:18 07:08 10:28 WBC RBC Hgb Hct MCV 95 H MCHC RDW 16.2 H Plt Count 134 L Lymph % (Auto) [place] % (Auto) Lymph # (Auto) [place] # (Auto) Seg Neutrophils % Seg Neuts % (Manual) Lymphocytes % (Manual) Monocytes % (Manual) Nucleated RBC % Seg Neutrophils # Seg Neutrophils # Man Lymphocytes # (Manual) Monocytes # (Manual) PT INR APTT D-Dimer Heparin Anti-Xa Level ABG pH POC ABG pCO2 POC ABG pO2 ABG pO2 ABG HCO3 ABG O2 Saturation ABG Base Excess ABG Hemoglobin ABG Oxyhemoglobin ABG Sodium ABG Potassium ABG Glucose Oxyhemoglobin Carboxyhemoglobin Sodium Potassium Chloride Carbon Dioxide BUN Creatinine Glucose POC Glucose 107 H 52 L Lactic Acid Calcium Phosphorus Magnesium Ferritin Lactate Dehydrogenase C-Reactive Protein NT-Pro-B Natriuret Pep Total Protein Albumin Triglycerides Arterial Blood Glucose Urine pH Ur Specific [place] Coronavirus (PCR) 03/27/21 03/27/21 03/27/21 10:28 11:45 17:39 WBC RBC Hgb Hct MCV MCHC RDW Plt Count Lymph % (Auto) [place] % (Auto) Lymph # (Auto) [place] # (Auto) Seg Neutrophils % Seg Neuts % (Manual) Lymphocytes % (Manual) Monocytes % (Manual) Nucleated RBC % Seg Neutrophils # Seg Neutrophils # Man Lymphocytes # (Manual) Monocytes # (Manual) PT INR APTT D-Dimer Heparin Anti-Xa Level ABG pH POC ABG pCO2 POC ABG pO2 ABG pO2 ABG HCO3 ABG O2 Saturation ABG Base Excess ABG Hemoglobin ABG Oxyhemoglobin ABG Sodium ABG Potassium ABG Glucose Oxyhemoglobin Carboxyhemoglobin Sodium 136 L Potassium Chloride Carbon Dioxide BUN Creatinine 0.7 L Glucose 150 H POC Glucose 121 H 165 H Lactic Acid Calcium Phosphorus Magnesium Ferritin Lactate Dehydrogenase C-Reactive Protein NT-Pro-B Natriuret Pep Total Protein Albumin Triglycerides Arterial Blood Glucose Urine pH Ur Specific [place] Coronavirus (PCR) 03/28/21 03/28/21 03/28/21 07:14 11:42 18:22 WBC RBC Hgb Hct MCV MCHC RDW 16.4 H Plt Count Lymph % (Auto) [place] % (Auto) Lymph # (Auto) [place] # (Auto) Seg Neutrophils % Seg Neuts % (Manual) Lymphocytes % (Manual) Monocytes % (Manual) Nucleated RBC % Seg Neutrophils # Seg Neutrophils # Man Lymphocytes # (Manual) Monocytes # (Manual) PT INR APTT D-Dimer Heparin Anti-Xa Level ABG pH POC ABG pCO2 POC ABG pO2 ABG pO2 ABG HCO3 ABG O2 Saturation ABG Base Excess ABG Hemoglobin ABG Oxyhemoglobin ABG Sodium ABG Potassium ABG Glucose Oxyhemoglobin Carboxyhemoglobin Sodium Potassium Chloride Carbon Dioxide BUN Creatinine Glucose POC Glucose 145 H 169 H Lactic Acid Calcium Phosphorus Magnesium Ferritin Lactate Dehydrogenase C-Reactive Protein NT-Pro-B Natriuret Pep Total Protein Albumin Triglycerides Arterial Blood Glucose Urine pH Ur Specific [place] Coronavirus (PCR) 03/28/21 03/29/21 03/29/21 23:39 04:50 04:50 WBC RBC Hgb 11.0 L Hct 34.9 L MCV MCHC RDW 15.9 H Plt Count Lymph % (Auto) [place] % (Auto) Lymph # (Auto) [place] # (Auto) Seg Neutrophils % Seg Neuts % (Manual) Lymphocytes % (Manual) Monocytes % (Manual) Nucleated RBC % Seg Neutrophils # Seg Neutrophils # Man Lymphocytes # (Manual) Monocytes # (Manual) PT INR APTT D-Dimer Heparin Anti-Xa Level ABG pH POC ABG pCO2 POC ABG pO2 ABG pO2 ABG HCO3 ABG O2 Saturation ABG Base Excess ABG Hemoglobin ABG Oxyhemoglobin ABG Sodium ABG Potassium ABG Glucose Oxyhemoglobin Carboxyhemoglobin Sodium Potassium Chloride Carbon Dioxide 34 H BUN Creatinine 0.6 L Glucose 152 H POC Glucose 139 H Lactic Acid Calcium Phosphorus Magnesium Ferritin Lactate Dehydrogenase C-Reactive Protein NT-Pro-B Natriuret Pep Total Protein Albumin Triglycerides Arterial Blood Glucose Urine pH Ur Specific [place] Coronavirus (PCR) 03/29/21 03/29/21 03/29/21 05:25 11:34 18:02 WBC RBC Hgb Hct MCV MCHC RDW Plt Count Lymph % (Auto) [place] % (Auto) Lymph # (Auto) [place] # (Auto) Seg Neutrophils % Seg Neuts % (Manual) Lymphocytes % (Manual) Monocytes % (Manual) Nucleated RBC % Seg Neutrophils # Seg Neutrophils # Man Lymphocytes # (Manual) Monocytes # (Manual) PT INR APTT D-Dimer Heparin Anti-Xa Level ABG pH POC ABG pCO2 POC ABG pO2 ABG pO2 ABG HCO3 ABG O2 Saturation ABG Base Excess ABG Hemoglobin ABG Oxyhemoglobin ABG Sodium ABG Potassium ABG Glucose Oxyhemoglobin Carboxyhemoglobin Sodium Potassium Chloride Carbon Dioxide BUN Creatinine Glucose POC Glucose 127 H 169 H 173 H Lactic Acid Calcium Phosphorus Magnesium Ferritin Lactate Dehydrogenase C-Reactive Protein NT-Pro-B Natriuret Pep Total Protein Albumin Triglycerides Arterial Blood Glucose Urine pH Ur Specific [place] Coronavirus (PCR) 03/29/21 03/30/21 03/30/21 21:42 00:01 05:36 WBC RBC Hgb Hct MCV MCHC RDW 16.7 H Plt Count Lymph % (Auto) [place] % (Auto) Lymph # (Auto) [place] # (Auto) Seg Neutrophils % Seg Neuts % (Manual) Lymphocytes % (Manual) Monocytes % (Manual) Nucleated RBC % Seg Neutrophils # Seg Neutrophils # Man Lymphocytes # (Manual) Monocytes # (Manual) PT INR APTT D-Dimer Heparin Anti-Xa Level ABG pH POC ABG pCO2 POC ABG pO2 ABG pO2 ABG HCO3 ABG O2 Saturation ABG Base Excess ABG Hemoglobin ABG Oxyhemoglobin ABG Sodium ABG Potassium ABG Glucose Oxyhemoglobin Carboxyhemoglobin Sodium Potassium Chloride Carbon Dioxide BUN Creatinine Glucose POC Glucose 184 H 161 H Lactic Acid Calcium Phosphorus Magnesium Ferritin Lactate Dehydrogenase C-Reactive Protein NT-Pro-B Natriuret Pep Total Protein Albumin Triglycerides Arterial Blood Glucose Urine pH Ur Specific [place] Coronavirus (PCR) 03/30/21 03/30/21 03/30/21 05:36 06:03 11:32 WBC RBC Hgb Hct MCV MCHC RDW Plt Count Lymph % (Auto) [place] % (Auto) Lymph # (Auto) [place] # (Auto) Seg Neutrophils % Seg Neuts % (Manual) Lymphocytes % (Manual) Monocytes % (Manual) Nucleated RBC % Seg Neutrophils # Seg Neutrophils # Man Lymphocytes # (Manual) Monocytes # (Manual) PT INR APTT D-Dimer Heparin Anti-Xa Level ABG pH POC ABG pCO2 POC ABG pO2 ABG pO2 ABG HCO3 ABG O2 Saturation ABG Base Excess ABG Hemoglobin ABG Oxyhemoglobin ABG Sodium ABG Potassium ABG Glucose Oxyhemoglobin Carboxyhemoglobin Sodium Potassium Chloride Carbon Dioxide BUN Creatinine 0.5 L Glucose 127 H POC Glucose 130 H 183 H Lactic Acid Calcium Phosphorus Magnesium Ferritin Lactate Dehydrogenase C-Reactive Protein NT-Pro-B Natriuret Pep Total Protein Albumin Triglycerides Arterial Blood Glucose Urine pH Ur Specific [place] Coronavirus (PCR) 03/30/21 03/30/21 03/30/21 15:00 16:23 21:07 WBC RBC Hgb Hct MCV MCHC RDW Plt Count Lymph % (Auto) [place] % (Auto) Lymph # (Auto) [place] # (Auto) Seg Neutrophils % Seg Neuts % (Manual) Lymphocytes % (Manual) Monocytes % (Manual) Nucleated RBC % Seg Neutrophils # Seg Neutrophils # Man Lymphocytes # (Manual) Monocytes # (Manual) PT INR APTT D-Dimer Heparin Anti-Xa Level ABG pH POC ABG pCO2 POC ABG pO2 ABG pO2 67.2 L ABG HCO3 34.9 H ABG O2 Saturation ABG Base Excess 9.1 H ABG Hemoglobin 11.6 L ABG Oxyhemoglobin ABG Sodium ABG Potassium ABG Glucose Oxyhemoglobin 93.0 L Carboxyhemoglobin Sodium Potassium Chloride Carbon Dioxide BUN Creatinine Glucose POC Glucose 162 H 146 H Lactic Acid Calcium Phosphorus Magnesium Ferritin Lactate Dehydrogenase C-Reactive Protein NT-Pro-B Natriuret Pep Total Protein Albumin Triglycerides Arterial Blood Glucose Urine pH Ur Specific [place] Coronavirus (PCR) 03/30/21 03/31/21 03/31/21 23:23 05:44 11:19 WBC RBC Hgb Hct MCV MCHC RDW Plt Count Lymph % (Auto) [place] % (Auto) Lymph # (Auto) [place] # (Auto) Seg Neutrophils % Seg Neuts % (Manual) Lymphocytes % (Manual) Monocytes % (Manual) Nucleated RBC % Seg Neutrophils # Seg Neutrophils # Man Lymphocytes # (Manual) Monocytes # (Manual) PT INR APTT D-Dimer Heparin Anti-Xa Level ABG pH POC ABG pCO2 POC ABG pO2 ABG pO2 ABG HCO3 ABG O2 Saturation ABG Base Excess ABG Hemoglobin ABG Oxyhemoglobin ABG Sodium ABG Potassium ABG Glucose Oxyhemoglobin Carboxyhemoglobin Sodium Potassium Chloride Carbon Dioxide BUN Creatinine Glucose POC Glucose 138 H 180 H 178 H Lactic Acid Calcium Phosphorus Magnesium Ferritin Lactate Dehydrogenase C-Reactive Protein NT-Pro-B Natriuret Pep Total Protein Albumin Triglycerides Arterial Blood Glucose Urine pH Ur Specific [place] Coronavirus (PCR) 03/31/21 03/31/21 03/31/21 12:50 13:30 16:06 WBC RBC Hgb 11.3 L Hct 35.1 L MCV MCHC RDW 16.5 H Plt Count Lymph % (Auto) 7.6 L [place] % (Auto) 9.5 H Lymph # (Auto) 0.6 L [place] # (Auto) Seg Neutrophils % 78.3 H Seg Neuts % (Manual) Lymphocytes % (Manual) Monocytes % (Manual) Nucleated RBC % Seg Neutrophils # Seg Neutrophils # Man Lymphocytes # (Manual) Monocytes # (Manual) PT INR APTT D-Dimer Heparin Anti-Xa Level ABG pH POC ABG pCO2 POC ABG pO2 ABG pO2 99.4 H ABG HCO3 34.9 H ABG O2 Saturation ABG Base Excess 8.4 H ABG Hemoglobin 11.8 L ABG Oxyhemoglobin ABG Sodium ABG Potassium ABG Glucose Oxyhemoglobin Carboxyhemoglobin Sodium Potassium Chloride Carbon Dioxide BUN Creatinine Glucose POC Glucose 197 H Lactic Acid Calcium Phosphorus Magnesium Ferritin Lactate Dehydrogenase C-Reactive Protein NT-Pro-B Natriuret Pep Total Protein Albumin Triglycerides Arterial Blood Glucose Urine pH Ur Specific [place] Coronavirus (PCR) 03/31/21 04/01/21 04/01/21 20:51 05:37 07:16 WBC RBC 3.39 L Hgb 10.5 L Hct 31.6 L MCV MCHC RDW 16.1 H Plt Count Lymph % (Auto) [place] % (Auto) Lymph # (Auto) [place] # (Auto) Seg Neutrophils % Seg Neuts % (Manual) Lymphocytes % (Manual) Monocytes % (Manual) Nucleated RBC % Seg Neutrophils # Seg Neutrophils # Man Lymphocytes # (Manual) Monocytes # (Manual) PT INR APTT D-Dimer Heparin Anti-Xa Level ABG pH POC ABG pCO2 POC ABG pO2 ABG pO2 ABG HCO3 ABG O2 Saturation ABG Base Excess ABG Hemoglobin ABG Oxyhemoglobin ABG Sodium ABG Potassium ABG Glucose Oxyhemoglobin Carboxyhemoglobin Sodium Potassium Chloride Carbon Dioxide BUN Creatinine Glucose POC Glucose 140 H 128 H Lactic Acid Calcium Phosphorus Magnesium Ferritin Lactate Dehydrogenase C-Reactive Protein NT-Pro-B Natriuret Pep Total Protein Albumin Triglycerides Arterial Blood Glucose Urine pH Ur Specific [place] Coronavirus (PCR) 04/01/21 04/01/21 04/01/21 07:16 11:52 16:56 WBC RBC Hgb Hct MCV MCHC RDW Plt Count Lymph % (Auto) [place] % (Auto) Lymph # (Auto) [place] # (Auto) Seg Neutrophils % Seg Neuts % (Manual) Lymphocytes % (Manual) Monocytes % (Manual) Nucleated RBC % Seg Neutrophils # Seg Neutrophils # Man Lymphocytes # (Manual) Monocytes # (Manual) PT INR APTT D-Dimer Heparin Anti-Xa Level ABG pH POC ABG pCO2 POC ABG pO2 ABG pO2 ABG HCO3 ABG O2 Saturation ABG Base Excess ABG Hemoglobin ABG Oxyhemoglobin ABG Sodium ABG Potassium ABG Glucose Oxyhemoglobin Carboxyhemoglobin Sodium Potassium Chloride Carbon Dioxide BUN Creatinine 0.6 L Glucose 131 H POC Glucose 182 H 179 H Lactic Acid Calcium 8.3 L Phosphorus Magnesium Ferritin Lactate Dehydrogenase C-Reactive Protein NT-Pro-B Natriuret Pep Total Protein Albumin Triglycerides Arterial Blood Glucose Urine pH Ur Specific [place] Coronavirus (PCR) 04/01/21 04/01/21 04/02/21 21:30 23:40 04:26 WBC RBC 3.62 L Hgb 10.8 L Hct 33.9 L MCV MCHC RDW 16.0 H Plt Count Lymph % (Auto) [place] % (Auto) Lymph # (Auto) [place] # (Auto) Seg Neutrophils % Seg Neuts % (Manual) Lymphocytes % (Manual) Monocytes % (Manual) Nucleated RBC % Seg Neutrophils # Seg Neutrophils # Man Lymphocytes # (Manual) Monocytes # (Manual) PT INR APTT D-Dimer Heparin Anti-Xa Level ABG pH POC ABG pCO2 POC ABG pO2 ABG pO2 ABG HCO3 ABG O2 Saturation ABG Base Excess ABG Hemoglobin ABG Oxyhemoglobin ABG Sodium ABG Potassium ABG Glucose Oxyhemoglobin Carboxyhemoglobin Sodium Potassium Chloride Carbon Dioxide BUN Creatinine Glucose POC Glucose 131 H 129 H Lactic Acid Calcium Phosphorus Magnesium Ferritin Lactate Dehydrogenase C-Reactive Protein NT-Pro-B Natriuret Pep Total Protein Albumin Triglycerides Arterial Blood Glucose Urine pH Ur Specific [place] Coronavirus (PCR) 04/02/21 04/02/21 04/02/21 04:26 05:54 11:35 WBC RBC Hgb Hct MCV MCHC RDW Plt Count Lymph % (Auto) [place] % (Auto) Lymph # (Auto) [place] # (Auto) Seg Neutrophils % Seg Neuts % (Manual) Lymphocytes % (Manual) Monocytes % (Manual) Nucleated RBC % Seg Neutrophils # Seg Neutrophils # Man Lymphocytes # (Manual) Monocytes # (Manual) PT INR APTT D-Dimer Heparin Anti-Xa Level ABG pH POC ABG pCO2 POC ABG pO2 ABG pO2 ABG HCO3 ABG O2 Saturation ABG Base Excess ABG Hemoglobin ABG Oxyhemoglobin ABG Sodium ABG Potassium ABG Glucose Oxyhemoglobin Carboxyhemoglobin Sodium 136 L Potassium Chloride Carbon Dioxide BUN Creatinine 0.6 L Glucose 152 H POC Glucose 151 H 178 H Lactic Acid Calcium Phosphorus Magnesium Ferritin Lactate Dehydrogenase C-Reactive Protein NT-Pro-B Natriuret Pep Total Protein Albumin Triglycerides Arterial Blood Glucose Urine pH Ur Specific [place] Coronavirus (PCR) 04/02/21 04/02/21 04/02/21 16:11 21:09 23:38 WBC RBC Hgb Hct MCV MCHC RDW Plt Count Lymph % (Auto) [place] % (Auto) Lymph # (Auto) [place] # (Auto) Seg Neutrophils % Seg Neuts % (Manual) Lymphocytes % (Manual) Monocytes % (Manual) Nucleated RBC % Seg Neutrophils # Seg Neutrophils # Man Lymphocytes # (Manual) Monocytes # (Manual) PT INR APTT D-Dimer Heparin Anti-Xa Level ABG pH POC ABG pCO2 POC ABG pO2 ABG pO2 ABG HCO3 ABG O2 Saturation ABG Base Excess ABG Hemoglobin ABG Oxyhemoglobin ABG Sodium ABG Potassium ABG Glucose Oxyhemoglobin Carboxyhemoglobin Sodium Potassium Chloride Carbon Dioxide BUN Creatinine Glucose POC Glucose 186 H 145 H 152 H Lactic Acid Calcium Phosphorus Magnesium Ferritin Lactate Dehydrogenase C-Reactive Protein NT-Pro-B Natriuret Pep Total Protein Albumin Triglycerides Arterial Blood Glucose Urine pH Ur Specific [place] Coronavirus (PCR) 04/03/21 04/03/21 04/03/21 04:14 04:14 05:27 WBC RBC 3.62 L Hgb 11.0 L Hct 34.0 L MCV MCHC RDW 16.3 H Plt Count Lymph % (Auto) [place] % (Auto) Lymph # (Auto) [place] # (Auto) Seg Neutrophils % Seg Neuts % (Manual) Lymphocytes % (Manual) Monocytes % (Manual) Nucleated RBC % Seg Neutrophils # Seg Neutrophils # Man Lymphocytes # (Manual) Monocytes # (Manual) PT INR APTT D-Dimer Heparin Anti-Xa Level ABG pH POC ABG pCO2 POC ABG pO2 ABG pO2 ABG HCO3 ABG O2 Saturation ABG Base Excess ABG Hemoglobin ABG Oxyhemoglobin ABG Sodium ABG Potassium ABG Glucose Oxyhemoglobin Carboxyhemoglobin Sodium Potassium Chloride Carbon Dioxide 31 H BUN Creatinine 0.6 L Glucose 155 H POC Glucose 165 H Lactic Acid Calcium Phosphorus Magnesium Ferritin Lactate Dehydrogenase C-Reactive Protein NT-Pro-B Natriuret Pep Total Protein Albumin Triglycerides Arterial Blood Glucose Urine pH Ur Specific [place] Coronavirus (PCR) 04/03/21 04/03/21 04/03/21 11:02 16:19 19:45 WBC RBC Hgb Hct MCV MCHC RDW Plt Count Lymph % (Auto) [place] % (Auto) Lymph # (Auto) [place] # (Auto) Seg Neutrophils % Seg Neuts % (Manual) Lymphocytes % (Manual) Monocytes % (Manual) Nucleated RBC % Seg Neutrophils # Seg Neutrophils # Man Lymphocytes # (Manual) Monocytes # (Manual) PT INR APTT D-Dimer Heparin Anti-Xa Level ABG pH POC ABG pCO2 POC ABG pO2 ABG pO2 ABG HCO3 ABG O2 Saturation ABG Base Excess ABG Hemoglobin ABG Oxyhemoglobin ABG Sodium ABG Potassium ABG Glucose Oxyhemoglobin Carboxyhemoglobin Sodium Potassium Chloride Carbon Dioxide BUN Creatinine Glucose POC Glucose 161 H 180 H 136 H Lactic Acid Calcium Phosphorus Magnesium Ferritin Lactate Dehydrogenase C-Reactive Protein NT-Pro-B Natriuret Pep Total Protein Albumin Triglycerides Arterial Blood Glucose Urine pH Ur Specific [place] Coronavirus (PCR) 04/04/21 04/04/21 04/04/21 00:21 04:33 04:33 WBC 13.1 H RBC 3.49 L Hgb 10.3 L Hct 32.7 L MCV MCHC RDW 16.1 H Plt Count Lymph % (Auto) [place] % (Auto) Lymph # (Auto) [place] # (Auto) Seg Neutrophils % Seg Neuts % (Manual) Lymphocytes % (Manual) Monocytes % (Manual) Nucleated RBC % Seg Neutrophils # Seg Neutrophils # Man Lymphocytes # (Manual) Monocytes # (Manual) PT INR APTT D-Dimer Heparin Anti-Xa Level ABG pH POC ABG pCO2 POC ABG pO2 ABG pO2 ABG HCO3 ABG O2 Saturation ABG Base Excess ABG Hemoglobin ABG Oxyhemoglobin ABG Sodium ABG Potassium ABG Glucose Oxyhemoglobin Carboxyhemoglobin Sodium Potassium Chloride Carbon Dioxide 31 H BUN Creatinine 0.4 L Glucose 153 H POC Glucose 140 H Lactic Acid Calcium Phosphorus Magnesium Ferritin Lactate Dehydrogenase C-Reactive Protein NT-Pro-B Natriuret Pep Total Protein Albumin Triglycerides Arterial Blood Glucose Urine pH Ur Specific [place] Coronavirus (PCR) 04/04/21 04/04/21 04/04/21 05:16 11:39 17:22 WBC RBC Hgb Hct MCV MCHC RDW Plt Count Lymph % (Auto) [place] % (Auto) Lymph # (Auto) [place] # (Auto) Seg Neutrophils % Seg Neuts % (Manual) Lymphocytes % (Manual) Monocytes % (Manual) Nucleated RBC % Seg Neutrophils # Seg Neutrophils # Man Lymphocytes # (Manual) Monocytes # (Manual) PT INR APTT D-Dimer Heparin Anti-Xa Level ABG pH POC ABG pCO2 POC ABG pO2 ABG pO2 ABG HCO3 ABG O2 Saturation ABG Base Excess ABG Hemoglobin ABG Oxyhemoglobin ABG Sodium ABG Potassium ABG Glucose Oxyhemoglobin Carboxyhemoglobin Sodium Potassium Chloride Carbon Dioxide BUN Creatinine Glucose POC Glucose 152 H 154 H 198 H Lactic Acid Calcium Phosphorus Magnesium Ferritin Lactate Dehydrogenase C-Reactive Protein NT-Pro-B Natriuret Pep Total Protein Albumin Triglycerides Arterial Blood Glucose Urine pH Ur Specific [place] Coronavirus (PCR) 04/04/21 04/04/21 04/05/21 20:14 23:16 04:15 WBC RBC 3.21 L Hgb 10.0 L Hct 30.3 L MCV MCHC RDW 16.4 H Plt Count Lymph % (Auto) [place] % (Auto) Lymph # (Auto) [place] # (Auto) Seg Neutrophils % Seg Neuts % (Manual) Lymphocytes % (Manual) Monocytes % (Manual) Nucleated RBC % Seg Neutrophils # Seg Neutrophils # Man Lymphocytes # (Manual) Monocytes # (Manual) PT INR APTT D-Dimer Heparin Anti-Xa Level ABG pH POC ABG pCO2 POC ABG pO2 ABG pO2 ABG HCO3 ABG O2 Saturation ABG Base Excess ABG Hemoglobin ABG Oxyhemoglobin ABG Sodium ABG Potassium ABG Glucose Oxyhemoglobin Carboxyhemoglobin Sodium Potassium Chloride Carbon Dioxide BUN Creatinine Glucose POC Glucose 161 H 139 H Lactic Acid Calcium Phosphorus Magnesium Ferritin Lactate Dehydrogenase C-Reactive Protein NT-Pro-B Natriuret Pep Total Protein Albumin Triglycerides Arterial Blood Glucose Urine pH Ur Specific [place] Coronavirus (PCR) 04/05/21 04/05/21 04/05/21 04:15 05:34 12:09 WBC RBC Hgb Hct MCV MCHC RDW Plt Count Lymph % (Auto) [place] % (Auto) Lymph # (Auto) [place] # (Auto) Seg Neutrophils % Seg Neuts % (Manual) Lymphocytes % (Manual) Monocytes % (Manual) Nucleated RBC % Seg Neutrophils # Seg Neutrophils # Man Lymphocytes # (Manual) Monocytes # (Manual) PT INR APTT D-Dimer Heparin Anti-Xa Level ABG pH POC ABG pCO2 POC ABG pO2 ABG pO2 ABG HCO3 ABG O2 Saturation ABG Base Excess ABG Hemoglobin ABG Oxyhemoglobin ABG Sodium ABG Potassium ABG Glucose Oxyhemoglobin Carboxyhemoglobin Sodium Potassium Chloride 97.6 L Carbon Dioxide 32 H BUN Creatinine 0.5 L Glucose 147 H POC Glucose 145 H 173 H Lactic Acid Calcium Phosphorus Magnesium Ferritin Lactate Dehydrogenase C-Reactive Protein NT-Pro-B Natriuret Pep Total Protein Albumin Triglycerides Arterial Blood Glucose Urine pH Ur Specific [place] Coronavirus (PCR) 04/05/21 04/05/21 04/05/21 17:35 21:07 23:15 WBC RBC Hgb Hct MCV MCHC RDW Plt Count Lymph % (Auto) [place] % (Auto) Lymph # (Auto) [place] # (Auto) Seg Neutrophils % Seg Neuts % (Manual) Lymphocytes % (Manual) Monocytes % (Manual) Nucleated RBC % Seg Neutrophils # Seg Neutrophils # Man Lymphocytes # (Manual) Monocytes # (Manual) PT INR APTT D-Dimer Heparin Anti-Xa Level ABG pH POC ABG pCO2 POC ABG pO2 ABG pO2 ABG HCO3 ABG O2 Saturation ABG Base Excess ABG Hemoglobin ABG Oxyhemoglobin ABG Sodium ABG Potassium ABG Glucose Oxyhemoglobin Carboxyhemoglobin Sodium Potassium Chloride Carbon Dioxide BUN Creatinine Glucose POC Glucose 143 H 157 H 171 H Lactic Acid Calcium Phosphorus Magnesium Ferritin Lactate Dehydrogenase C-Reactive Protein NT-Pro-B Natriuret Pep Total Protein Albumin Triglycerides Arterial Blood Glucose Urine pH Ur Specific [place] Coronavirus (PCR) 04/06/21 04/06/21 04/06/21 04:49 05:14 11:42 WBC RBC Hgb Hct MCV MCHC RDW Plt Count Lymph % (Auto) [place] % (Auto) Lymph # (Auto) [place] # (Auto) Seg Neutrophils % Seg Neuts % (Manual) Lymphocytes % (Manual) Monocytes % (Manual) Nucleated RBC % Seg Neutrophils # Seg Neutrophils # Man Lymphocytes # (Manual) Monocytes # (Manual) PT INR APTT D-Dimer Heparin Anti-Xa Level ABG pH POC ABG pCO2 57.4 H POC ABG pO2 55.1 L ABG pO2 ABG HCO3 ABG O2 Saturation ABG Base Excess ABG Hemoglobin 11.5 L ABG Oxyhemoglobin 87.5 L ABG Sodium ABG Potassium ABG Glucose Oxyhemoglobin Carboxyhemoglobin Sodium Potassium Chloride Carbon Dioxide BUN Creatinine Glucose POC Glucose 145 H 171 H Lactic Acid Calcium Phosphorus Magnesium Ferritin Lactate Dehydrogenase C-Reactive Protein NT-Pro-B Natriuret Pep Total Protein Albumin Triglycerides Arterial Blood Glucose Urine pH Ur Specific [place] Coronavirus (PCR) 04/06/21 04/06/21 04/06/21 11:50 15:36 15:36 WBC RBC Hgb 10.4 L Hct 32.5 L MCV MCHC RDW Plt Count 444 H Lymph % (Auto) [place] % (Auto) Lymph # (Auto) [place] # (Auto) Seg Neutrophils % Seg Neuts % (Manual) Lymphocytes % (Manual) Monocytes % (Manual) Nucleated RBC % Seg Neutrophils # Seg Neutrophils # Man Lymphocytes # (Manual) Monocytes # (Manual) PT INR APTT 37.1 H D-Dimer Heparin Anti-Xa Level ABG pH 7.341 L POC ABG pCO2 POC ABG pO2 ABG pO2 108.9 H ABG HCO3 38.9 H ABG O2 Saturation ABG Base Excess 10.6 H ABG Hemoglobin 11.5 L ABG Oxyhemoglobin ABG Sodium ABG Potassium ABG Glucose Oxyhemoglobin Carboxyhemoglobin Sodium Potassium Chloride Carbon Dioxide BUN Creatinine Glucose POC Glucose Lactic Acid Calcium Phosphorus Magnesium Ferritin Lactate Dehydrogenase C-Reactive Protein NT-Pro-B Natriuret Pep Total Protein Albumin Triglycerides Arterial Blood Glucose Urine pH Ur Specific [place] Coronavirus (PCR) 04/06/21 04/07/21 04/07/21 17:57 00:30 00:32 WBC RBC Hgb Hct MCV MCHC RDW Plt Count Lymph % (Auto) [place] % (Auto) Lymph # (Auto) [place] # (Auto) Seg Neutrophils % Seg Neuts % (Manual) Lymphocytes % (Manual) Monocytes % (Manual) Nucleated RBC % Seg Neutrophils # Seg Neutrophils # Man Lymphocytes # (Manual) Monocytes # (Manual) PT INR APTT D-Dimer Heparin Anti-Xa Level < 0.10 L ABG pH POC ABG pCO2 POC ABG pO2 ABG pO2 ABG HCO3 ABG O2 Saturation ABG Base Excess ABG Hemoglobin ABG Oxyhemoglobin ABG Sodium ABG Potassium ABG Glucose Oxyhemoglobin Carboxyhemoglobin Sodium Potassium Chloride Carbon Dioxide BUN Creatinine Glucose POC Glucose 151 H 149 H Lactic Acid Calcium Phosphorus Magnesium Ferritin Lactate Dehydrogenase C-Reactive Protein NT-Pro-B Natriuret Pep Total Protein Albumin Triglycerides Arterial Blood Glucose Urine pH Ur Specific [place] Coronavirus (PCR) 04/07/21 04/07/21 04/07/21 05:34 06:08 06:08 WBC RBC 3.20 L Hgb 9.6 L Hct 29.8 L MCV MCHC RDW 16.0 H Plt Count 455 H Lymph % (Auto) [place] % (Auto) Lymph # (Auto) [place] # (Auto) Seg Neutrophils % Seg Neuts % (Manual) Lymphocytes % (Manual) Monocytes % (Manual) Nucleated RBC % Seg Neutrophils # Seg Neutrophils # Man Lymphocytes # (Manual) Monocytes # (Manual) PT INR APTT D-Dimer Heparin Anti-Xa Level ABG pH POC ABG pCO2 POC ABG pO2 ABG pO2 ABG HCO3 ABG O2 Saturation ABG Base Excess ABG Hemoglobin ABG Oxyhemoglobin ABG Sodium ABG Potassium ABG Glucose Oxyhemoglobin Carboxyhemoglobin Sodium Potassium Chloride Carbon Dioxide 35 H BUN Creatinine 0.5 L Glucose 216 H POC Glucose 182 H Lactic Acid Calcium Phosphorus Magnesium Ferritin Lactate Dehydrogenase C-Reactive Protein NT-Pro-B Natriuret Pep Total Protein Albumin Triglycerides Arterial Blood Glucose Urine pH Ur Specific [place] Coronavirus (PCR) 04/07/21 04/07/21 04/07/21 07:55 11:57 17:12 WBC RBC Hgb Hct MCV MCHC RDW Plt Count Lymph % (Auto) [place] % (Auto) Lymph # (Auto) [place] # (Auto) Seg Neutrophils % Seg Neuts % (Manual) Lymphocytes % (Manual) Monocytes % (Manual) Nucleated RBC % Seg Neutrophils # Seg Neutrophils # Man Lymphocytes # (Manual) Monocytes # (Manual) PT INR APTT D-Dimer Heparin Anti-Xa Level < 0.10 L ABG pH POC ABG pCO2 POC ABG pO2 ABG pO2 ABG HCO3 ABG O2 Saturation ABG Base Excess ABG Hemoglobin ABG Oxyhemoglobin ABG Sodium ABG Potassium ABG Glucose Oxyhemoglobin Carboxyhemoglobin Sodium Potassium Chloride Carbon Dioxide BUN Creatinine Glucose POC Glucose 182 H 165 H Lactic Acid Calcium Phosphorus Magnesium Ferritin Lactate Dehydrogenase C-Reactive Protein NT-Pro-B Natriuret Pep Total Protein Albumin Triglycerides Arterial Blood Glucose Urine pH Ur Specific [place] Coronavirus (PCR) 04/07/21 04/08/21 04/08/21 19:55 00:16 03:57 WBC RBC Hgb Hct MCV MCHC RDW Plt Count Lymph % (Auto) [place] % (Auto) Lymph # (Auto) [place] # (Auto) Seg Neutrophils % Seg Neuts % (Manual) Lymphocytes % (Manual) Monocytes % (Manual) Nucleated RBC % Seg Neutrophils # Seg Neutrophils # Man Lymphocytes # (Manual) Monocytes # (Manual) PT INR APTT D-Dimer Heparin Anti-Xa Level < 0.10 L ABG pH POC ABG pCO2 POC ABG pO2 ABG pO2 ABG HCO3 ABG O2 Saturation ABG Base Excess ABG Hemoglobin ABG Oxyhemoglobin ABG Sodium ABG Potassium ABG Glucose Oxyhemoglobin Carboxyhemoglobin Sodium Potassium 5.8 H Chloride 95.5 L Carbon Dioxide 37 H BUN Creatinine 0.5 L Glucose 161 H POC Glucose 175 H Lactic Acid Calcium Phosphorus Magnesium Ferritin Lactate Dehydrogenase C-Reactive Protein NT-Pro-B Natriuret Pep Total Protein Albumin Triglycerides Arterial Blood Glucose Urine pH Ur Specific [place] Coronavirus (PCR) 04/08/21 04/08/21 04/08/21 04:00 05:43 09:26 WBC RBC 3.25 L Hgb 9.9 L Hct 30.8 L MCV 95 H MCHC RDW 16.0 H Plt Count 487 H Lymph % (Auto) [place] % (Auto) Lymph # (Auto) [place] # (Auto) Seg Neutrophils % Seg Neuts % (Manual) Lymphocytes % (Manual) Monocytes % (Manual) Nucleated RBC % Seg Neutrophils # Seg Neutrophils # Man Lymphocytes # (Manual) Monocytes # (Manual) PT INR APTT D-Dimer Heparin Anti-Xa Level ABG pH POC ABG pCO2 POC ABG pO2 ABG pO2 ABG HCO3 ABG O2 Saturation ABG Base Excess ABG Hemoglobin ABG Oxyhemoglobin ABG Sodium ABG Potassium ABG Glucose Oxyhemoglobin Carboxyhemoglobin Sodium Potassium Chloride Carbon Dioxide BUN Creatinine Glucose POC Glucose 162 H 164 H Lactic Acid Calcium Phosphorus Magnesium Ferritin Lactate Dehydrogenase C-Reactive Protein NT-Pro-B Natriuret Pep Total Protein Albumin Triglycerides Arterial Blood Glucose Urine pH Ur Specific [place] Coronavirus (PCR) 04/08/21 04/08/21 04/08/21 11:53 17:19 20:35 WBC RBC Hgb Hct MCV MCHC RDW Plt Count Lymph % (Auto) [place] % (Auto) Lymph # (Auto) [place] # (Auto) Seg Neutrophils % Seg Neuts % (Manual) Lymphocytes % (Manual) Monocytes % (Manual) Nucleated RBC % Seg Neutrophils # Seg Neutrophils # Man Lymphocytes # (Manual) Monocytes # (Manual) PT INR APTT D-Dimer Heparin Anti-Xa Level ABG pH POC ABG pCO2 POC ABG pO2 ABG pO2 ABG HCO3 ABG O2 Saturation ABG Base Excess ABG Hemoglobin ABG Oxyhemoglobin ABG Sodium ABG Potassium ABG Glucose Oxyhemoglobin Carboxyhemoglobin Sodium Potassium Chloride Carbon Dioxide BUN Creatinine Glucose POC Glucose 170 H 157 H 190 H Lactic Acid Calcium Phosphorus Magnesium Ferritin Lactate Dehydrogenase C-Reactive Protein NT-Pro-B Natriuret Pep Total Protein Albumin Triglycerides Arterial Blood Glucose Urine pH Ur Specific [place] Coronavirus (PCR) 04/08/21 04/09/2104/09/22 23:52 04:21 04:21 WBC 11.4 H RBC 2.97 L Hgb 8.9 L Hct 27.8 L MCV MCHC RDW 15.8 H Plt Count 485 H Lymph % (Auto) [place] % (Auto) Lymph # (Auto) [place] # (Auto) Seg Neutrophils % Seg Neuts % (Manual) Lymphocytes % (Manual) Monocytes % (Manual) Nucleated RBC % Seg Neutrophils # Seg Neutrophils # Man Lymphocytes # (Manual) Monocytes # (Manual) PT INR APTT D-Dimer Heparin Anti-Xa Level ABG pH POC ABG pCO2 POC ABG pO2 ABG pO2 ABG HCO3 ABG O2 Saturation ABG Base Excess ABG Hemoglobin ABG Oxyhemoglobin ABG Sodium ABG Potassium ABG Glucose Oxyhemoglobin Carboxyhemoglobin Sodium Potassium Chloride 97.1 L Carbon Dioxide 40 H BUN 21 H Creatinine 0.5 L Glucose 149 H POC Glucose 170 H Lactic Acid Calcium Phosphorus 1.90 L D Magnesium Ferritin Lactate Dehydrogenase C-Reactive Protein NT-Pro-B Natriuret Pep Total Protein Albumin Triglycerides Arterial Blood Glucose Urine pH Ur Specific [place] Coronavirus (PCR) 04/09/21 04/09/21 04/09/21 05:27 11:55 17:11 WBC RBC Hgb Hct MCV MCHC RDW Plt Count Lymph % (Auto) [place] % (Auto) Lymph # (Auto) [place] # (Auto) Seg Neutrophils % Seg Neuts % (Manual) Lymphocytes % (Manual) Monocytes % (Manual) Nucleated RBC % Seg Neutrophils # Seg Neutrophils # Man Lymphocytes # (Manual) Monocytes # (Manual) PT INR APTT D-Dimer Heparin Anti-Xa Level ABG pH POC ABG pCO2 POC ABG pO2 ABG pO2 ABG HCO3 ABG O2 Saturation ABG Base Excess ABG Hemoglobin ABG Oxyhemoglobin ABG Sodium ABG Potassium ABG Glucose Oxyhemoglobin Carboxyhemoglobin Sodium Potassium Chloride Carbon Dioxide BUN Creatinine Glucose POC Glucose 144 H 190 H 163 H Lactic Acid Calcium Phosphorus Magnesium Ferritin Lactate Dehydrogenase C-Reactive Protein NT-Pro-B Natriuret Pep Total Protein Albumin Triglycerides Arterial Blood Glucose Urine pH Ur Specific [place] Coronavirus (PCR) 04/09/21 04/09/21 04/09/21 20:10 21:12 23:33 WBC RBC Hgb Hct MCV MCHC RDW Plt Count Lymph % (Auto) [place] % (Auto) Lymph # (Auto) [place] # (Auto) Seg Neutrophils % Seg Neuts % (Manual) Lymphocytes % (Manual) Monocytes % (Manual) Nucleated RBC % Seg Neutrophils # Seg Neutrophils # Man Lymphocytes # (Manual) Monocytes # (Manual) PT INR APTT D-Dimer Heparin Anti-Xa Level ABG pH POC ABG pCO2 POC ABG pO2 ABG pO2 68.1 L ABG HCO3 41.3 H ABG O2 Saturation ABG Base Excess 14.6 H ABG Hemoglobin 10.2 L ABG Oxyhemoglobin ABG Sodium ABG Potassium ABG Glucose Oxyhemoglobin 94.7 L Carboxyhemoglobin Sodium Potassium Chloride Carbon Dioxide BUN Creatinine Glucose POC Glucose 163 H 164 H Lactic Acid Calcium Phosphorus Magnesium Ferritin Lactate Dehydrogenase C-Reactive Protein NT-Pro-B Natriuret Pep Total Protein Albumin Triglycerides Arterial Blood Glucose Urine pH Ur Specific [place] Coronavirus (PCR) 04/10/21 04/10/21 04/10/21 05:26 11:41 13:00 WBC RBC 3.09 L Hgb 9.3 L Hct 28.3 L MCV MCHC RDW 15.8 H Plt Count 480 H Lymph % (Auto) [place] % (Auto) Lymph # (Auto) [place] # (Auto) Seg Neutrophils % Seg Neuts % (Manual) Lymphocytes % (Manual) Monocytes % (Manual) Nucleated RBC % Seg Neutrophils # Seg Neutrophils # Man Lymphocytes # (Manual) Monocytes # (Manual) PT INR APTT D-Dimer Heparin Anti-Xa Level ABG pH POC ABG pCO2 POC ABG pO2 ABG pO2 ABG HCO3 ABG O2 Saturation ABG Base Excess ABG Hemoglobin ABG Oxyhemoglobin ABG Sodium ABG Potassium ABG Glucose Oxyhemoglobin Carboxyhemoglobin Sodium Potassium Chloride Carbon Dioxide BUN Creatinine Glucose POC Glucose 172 H 150 H Lactic Acid Calcium Phosphorus Magnesium Ferritin Lactate Dehydrogenase C-Reactive Protein NT-Pro-B Natriuret Pep Total Protein Albumin Triglycerides Arterial Blood Glucose Urine pH Ur Specific [place] Coronavirus (PCR) 04/10/21 04/10/21 04/10/21 13:00 17:46 21:37 WBC RBC Hgb Hct MCV MCHC RDW Plt Count Lymph % (Auto) [place] % (Auto) Lymph # (Auto) [place] # (Auto) Seg Neutrophils % Seg Neuts % (Manual) Lymphocytes % (Manual) Monocytes % (Manual) Nucleated RBC % Seg Neutrophils # Seg Neutrophils # Man Lymphocytes # (Manual) Monocytes # (Manual) PT INR APTT D-Dimer Heparin Anti-Xa Level ABG pH POC ABG pCO2 POC ABG pO2 ABG pO2 ABG HCO3 ABG O2 Saturation ABG Base Excess ABG Hemoglobin ABG Oxyhemoglobin ABG Sodium ABG Potassium ABG Glucose Oxyhemoglobin Carboxyhemoglobin Sodium Potassium Chloride 96.4 L Carbon Dioxide 34 H BUN Creatinine 0.5 L Glucose 165 H POC Glucose 165 H 166 H Lactic Acid Calcium Phosphorus Magnesium Ferritin Lactate Dehydrogenase C-Reactive Protein NT-Pro-B Natriuret Pep Total Protein Albumin Triglycerides Arterial Blood Glucose Urine pH Ur Specific [place] Coronavirus (PCR) 04/10/21 04/11/21 04/11/21 23:56 04:30 05:39 WBC 11.5 H RBC 3.02 L Hgb 8.9 L Hct 27.8 L MCV MCHC RDW 16.0 H Plt Count 505 H Lymph % (Auto) [place] % (Auto) Lymph # (Auto) [place] # (Auto) Seg Neutrophils % Seg Neuts % (Manual) Lymphocytes % (Manual) Monocytes % (Manual) Nucleated RBC % Seg Neutrophils # Seg Neutrophils # Man Lymphocytes # (Manual) Monocytes # (Manual) PT INR APTT D-Dimer Heparin Anti-Xa Level ABG pH POC ABG pCO2 POC ABG pO2 ABG pO2 ABG HCO3 ABG O2 Saturation ABG Base Excess ABG Hemoglobin ABG Oxyhemoglobin ABG Sodium ABG Potassium ABG Glucose Oxyhemoglobin Carboxyhemoglobin Sodium Potassium Chloride Carbon Dioxide BUN Creatinine Glucose POC Glucose 156 H 164 H Lactic Acid Calcium Phosphorus Magnesium Ferritin Lactate Dehydrogenase C-Reactive Protein NT-Pro-B Natriuret Pep Total Protein Albumin Triglycerides Arterial Blood Glucose Urine pH Ur Specific [place] Coronavirus (PCR) 04/11/21 04/11/21 04/11/21 06:47 06:47 11:29 WBC RBC 3.35 L Hgb 9.8 L Hct 30.7 L MCV MCHC RDW 16.3 H Plt Count 520 H Lymph % (Auto) [place] % (Auto) Lymph # (Auto) [place] # (Auto) Seg Neutrophils % Seg Neuts % (Manual) 76.0 H Lymphocytes % (Manual) 10.0 L Monocytes % (Manual) Nucleated RBC % Seg Neutrophils # Seg Neutrophils # Man 8.3 H Lymphocytes # (Manual) 1.1 L Monocytes # (Manual) PT INR APTT D-Dimer Heparin Anti-Xa Level ABG pH POC ABG pCO2 POC ABG pO2 ABG pO2 ABG HCO3 ABG O2 Saturation ABG Base Excess ABG Hemoglobin ABG Oxyhemoglobin ABG Sodium ABG Potassium ABG Glucose Oxyhemoglobin Carboxyhemoglobin Sodium Potassium Chloride 97.7 L Carbon Dioxide 34 H BUN Creatinine 0.4 L Glucose 178 H POC Glucose 170 H Lactic Acid Calcium Phosphorus Magnesium Ferritin Lactate Dehydrogenase C-Reactive Protein NT-Pro-B Natriuret Pep Total Protein Albumin Triglycerides Arterial Blood Glucose Urine pH Ur Specific [place] Coronavirus (PCR) 04/11/21 04/11/21 04/11/21 18:17 18:17 18:17 WBC RBC 3.22 L Hgb 9.5 L Hct 29.8 L MCV MCHC RDW 16.0 H Plt Count Lymph % (Auto) [place] % (Auto) Lymph # (Auto) [place] # (Auto) Seg Neutrophils % Seg Neuts % (Manual) Lymphocytes % (Manual) Monocytes % (Manual) Nucleated RBC % Seg Neutrophils # Seg Neutrophils # Man Lymphocytes # (Manual) Monocytes # (Manual) PT INR APTT 61.1 H* D-Dimer Heparin Anti-Xa Level ABG pH POC ABG pCO2 POC ABG pO2 ABG pO2 ABG HCO3 ABG O2 Saturation ABG Base Excess ABG Hemoglobin ABG Oxyhemoglobin ABG Sodium ABG Potassium ABG Glucose Oxyhemoglobin Carboxyhemoglobin Sodium Potassium Chloride Carbon Dioxide BUN Creatinine 0.3 L Glucose POC Glucose Lactic Acid Calcium Phosphorus Magnesium Ferritin Lactate Dehydrogenase C-Reactive Protein NT-Pro-B Natriuret Pep Total Protein Albumin Triglycerides Arterial Blood Glucose Urine pH Ur Specific [place] Coronavirus (PCR) 04/11/21 04/12/21 04/12/21 18:25 00:19 05:11 WBC RBC 2.92 L Hgb 8.6 L Hct 26.9 L MCV MCHC RDW 16.3 H Plt Count 460 H Lymph % (Auto) [place] % (Auto) Lymph # (Auto) [place] # (Auto) Seg Neutrophils % Seg Neuts % (Manual) Lymphocytes % (Manual) Monocytes % (Manual) Nucleated RBC % Seg Neutrophils # Seg Neutrophils # Man Lymphocytes # (Manual) Monocytes # (Manual) PT INR APTT D-Dimer Heparin Anti-Xa Level ABG pH POC ABG pCO2 POC ABG pO2 ABG pO2 ABG HCO3 ABG O2 Saturation ABG Base Excess ABG Hemoglobin ABG Oxyhemoglobin ABG Sodium ABG Potassium ABG Glucose Oxyhemoglobin Carboxyhemoglobin Sodium Potassium Chloride Carbon Dioxide BUN Creatinine Glucose POC Glucose 167 H 128 H Lactic Acid Calcium Phosphorus Magnesium Ferritin Lactate Dehydrogenase C-Reactive Protein NT-Pro-B Natriuret Pep Total Protein Albumin Triglycerides Arterial Blood Glucose Urine pH Ur Specific [place] Coronavirus (PCR) 04/12/21 04/12/21 04/12/21 05:11 05:11 06:23 WBC RBC Hgb Hct MCV MCHC RDW Plt Count Lymph % (Auto) [place] % (Auto) Lymph # (Auto) [place] # (Auto) Seg Neutrophils % Seg Neuts % (Manual) Lymphocytes % (Manual) Monocytes % (Manual) Nucleated RBC % Seg Neutrophils # Seg Neutrophils # Man Lymphocytes # (Manual) Monocytes # (Manual) PT INR APTT D-Dimer Heparin Anti-Xa Level 1.03 H ABG pH POC ABG pCO2 POC ABG pO2 ABG pO2 ABG HCO3 ABG O2 Saturation ABG Base Excess ABG Hemoglobin ABG Oxyhemoglobin ABG Sodium ABG Potassium ABG Glucose Oxyhemoglobin Carboxyhemoglobin Sodium Potassium Chloride Carbon Dioxide 34 H BUN Creatinine 0.3 L Glucose 153 H POC Glucose 162 H Lactic Acid Calcium Phosphorus Magnesium Ferritin Lactate Dehydrogenase C-Reactive Protein NT-Pro-B Natriuret Pep Total Protein Albumin Triglycerides Arterial Blood Glucose Urine pH Ur Specific [place] Coronavirus (PCR) 04/12/21 04/12/21 04/12/21 09:45 11:08 15:56 WBC RBC Hgb Hct MCV MCHC RDW Plt Count Lymph % (Auto) [place] % (Auto) Lymph # (Auto) [place] # (Auto) Seg Neutrophils % Seg Neuts % (Manual) Lymphocytes % (Manual) Monocytes % (Manual) Nucleated RBC % Seg Neutrophils # Seg Neutrophils # Man Lymphocytes # (Manual) Monocytes # (Manual) PT INR APTT D-Dimer Heparin Anti-Xa Level ABG pH POC ABG pCO2 POC ABG pO2 ABG pO2 70.8 L ABG HCO3 41.0 H ABG O2 Saturation ABG Base Excess 13.7 H ABG Hemoglobin 8.3 L ABG Oxyhemoglobin ABG Sodium ABG Potassium ABG Glucose Oxyhemoglobin 94.0 L Carboxyhemoglobin Sodium Potassium Chloride Carbon Dioxide BUN Creatinine Glucose POC Glucose 174 H 146 H Lactic Acid Calcium Phosphorus Magnesium Ferritin Lactate Dehydrogenase C-Reactive Protein NT-Pro-B Natriuret Pep Total Protein Albumin Triglycerides Arterial Blood Glucose Urine pH Ur Specific [place] Coronavirus (PCR) 04/12/21 04/12/21 04/13/21 21:55 23:25 04:34 WBC 12.5 H RBC 2.97 L Hgb 8.9 L Hct 27.3 L MCV MCHC RDW 16.4 H Plt Count 470 H Lymph % (Auto) [place] % (Auto) Lymph # (Auto) [place] # (Auto) Seg Neutrophils % Seg Neuts % (Manual) Lymphocytes % (Manual) Monocytes % (Manual) Nucleated RBC % Seg Neutrophils # Seg Neutrophils # Man Lymphocytes # (Manual) Monocytes # (Manual) PT INR APTT D-Dimer Heparin Anti-Xa Level ABG pH POC ABG pCO2 POC ABG pO2 ABG pO2 ABG HCO3 ABG O2 Saturation ABG Base Excess ABG Hemoglobin ABG Oxyhemoglobin ABG Sodium ABG Potassium ABG Glucose Oxyhemoglobin Carboxyhemoglobin Sodium Potassium Chloride Carbon Dioxide BUN Creatinine Glucose POC Glucose 142 H 170 H Lactic Acid Calcium Phosphorus Magnesium Ferritin Lactate Dehydrogenase C-Reactive Protein NT-Pro-B Natriuret Pep Total Protein Albumin Triglycerides Arterial Blood Glucose Urine pH Ur Specific [place] Coronavirus (PCR) 04/13/21 04/13/21 04/13/21 04:34 05:17 11:14 WBC RBC Hgb Hct MCV MCHC RDW Plt Count Lymph % (Auto) [place] % (Auto) Lymph # (Auto) [place] # (Auto) Seg Neutrophils % Seg Neuts % (Manual) Lymphocytes % (Manual) Monocytes % (Manual) Nucleated RBC % Seg Neutrophils # Seg Neutrophils # Man Lymphocytes # (Manual) Monocytes # (Manual) PT INR APTT D-Dimer Heparin Anti-Xa Level ABG pH POC ABG pCO2 POC ABG pO2 ABG pO2 ABG HCO3 ABG O2 Saturation ABG Base Excess ABG Hemoglobin ABG Oxyhemoglobin ABG Sodium ABG Potassium ABG Glucose Oxyhemoglobin Carboxyhemoglobin Sodium Potassium Chloride 96.6 L Carbon Dioxide 41 H* D BUN Creatinine 0.3 L Glucose 171 H POC Glucose 141 H 149 H Lactic Acid Calcium Phosphorus Magnesium Ferritin Lactate Dehydrogenase C-Reactive Protein NT-Pro-B Natriuret Pep Total Protein Albumin Triglycerides Arterial Blood Glucose Urine pH Ur Specific [place] Coronavirus (PCR) 04/13/21 04/13/21 04/14/21 15:51 23:35 04:32 WBC 13.8 H RBC 2.64 L Hgb 8.0 L Hct 24.1 L MCV MCHC RDW 16.1 H Plt Count Lymph % (Auto) [place] % (Auto) Lymph # (Auto) [place] # (Auto) Seg Neutrophils % Seg Neuts % (Manual) Lymphocytes % (Manual) Monocytes % (Manual) Nucleated RBC % Seg Neutrophils # Seg Neutrophils # Man Lymphocytes # (Manual) Monocytes # (Manual) PT INR APTT D-Dimer Heparin Anti-Xa Level ABG pH POC ABG pCO2 POC ABG pO2 ABG pO2 ABG HCO3 ABG O2 Saturation ABG Base Excess ABG Hemoglobin ABG Oxyhemoglobin ABG Sodium ABG Potassium ABG Glucose Oxyhemoglobin Carboxyhemoglobin Sodium Potassium Chloride Carbon Dioxide BUN Creatinine Glucose POC Glucose 136 H 167 H Lactic Acid Calcium Phosphorus Magnesium Ferritin Lactate Dehydrogenase C-Reactive Protein NT-Pro-B Natriuret Pep Total Protein Albumin Triglycerides Arterial Blood Glucose Urine pH Ur Specific [place] Coronavirus (PCR) 04/14/21 04/14/21 04/14/21 04:32 05:18 11:03 WBC RBC Hgb Hct MCV MCHC RDW Plt Count Lymph % (Auto) [place] % (Auto) Lymph # (Auto) [place] # (Auto) Seg Neutrophils % Seg Neuts % (Manual) Lymphocytes % (Manual) Monocytes % (Manual) Nucleated RBC % Seg Neutrophils # Seg Neutrophils # Man Lymphocytes # (Manual) Monocytes # (Manual) PT INR APTT D-Dimer Heparin Anti-Xa Level ABG pH POC ABG pCO2 POC ABG pO2 ABG pO2 ABG HCO3 ABG O2 Saturation ABG Base Excess ABG Hemoglobin ABG Oxyhemoglobin ABG Sodium ABG Potassium ABG Glucose Oxyhemoglobin Carboxyhemoglobin Sodium Potassium Chloride 95.5 L Carbon Dioxide 38 H BUN Creatinine 0.4 L Glucose 141 H POC Glucose 140 H 143 H Lactic Acid Calcium Phosphorus Magnesium Ferritin Lactate Dehydrogenase C-Reactive Protein NT-Pro-B Natriuret Pep Total Protein Albumin Triglycerides Arterial Blood Glucose Urine pH Ur Specific [place] Coronavirus (PCR) 04/14/21 04/14/21 04/14/21 16:38 23:46 Unknown WBC RBC Hgb Hct MCV MCHC RDW Plt Count Lymph % (Auto) [place] % (Auto) Lymph # (Auto) [place] # (Auto) Seg Neutrophils % Seg Neuts % (Manual) Lymphocytes % (Manual) Monocytes % (Manual) Nucleated RBC % Seg Neutrophils # Seg Neutrophils # Man Lymphocytes # (Manual) Monocytes # (Manual) PT INR APTT D-Dimer Heparin Anti-Xa Level ABG pH POC ABG pCO2 POC ABG pO2 ABG pO2 ABG HCO3 ABG O2 Saturation ABG Base Excess ABG Hemoglobin ABG Oxyhemoglobin ABG Sodium ABG Potassium ABG Glucose Oxyhemoglobin Carboxyhemoglobin Sodium Potassium Chloride Carbon Dioxide BUN Creatinine Glucose POC Glucose 157 H 155 H Lactic Acid Calcium Phosphorus Magnesium Ferritin Lactate Dehydrogenase C-Reactive Protein NT-Pro-B Natriuret Pep Total Protein Albumin Triglycerides Arterial Blood Glucose Urine pH 8.0 H Ur Specific [place] Coronavirus (PCR) 04/15/21 04/15/21 04/15/21 04:44 04:44 05:52 WBC 15.8 H RBC 2.96 L Hgb 8.9 L Hct 27.1 L MCV MCHC RDW 16.5 H Plt Count 507 H Lymph % (Auto) [place] % (Auto) Lymph # (Auto) [place] # (Auto) Seg Neutrophils % Seg Neuts % (Manual) Lymphocytes % (Manual) Monocytes % (Manual) Nucleated RBC % Seg Neutrophils # Seg Neutrophils # Man Lymphocytes # (Manual) Monocytes # (Manual) PT INR APTT D-Dimer Heparin Anti-Xa Level ABG pH POC ABG pCO2 POC ABG pO2 ABG pO2 ABG HCO3 ABG O2 Saturation ABG Base Excess ABG Hemoglobin ABG Oxyhemoglobin ABG Sodium ABG Potassium ABG Glucose Oxyhemoglobin Carboxyhemoglobin Sodium Potassium Chloride 96.9 L Carbon Dioxide 38 H BUN Creatinine 0.4 L Glucose 163 H POC Glucose 167 H Lactic Acid Calcium Phosphorus Magnesium Ferritin Lactate Dehydrogenase C-Reactive Protein NT-Pro-B Natriuret Pep Total Protein Albumin Triglycerides Arterial Blood Glucose Urine pH Ur Specific [place] Coronavirus (PCR) 04/15/21 04/15/21 04/15/21 11:35 17:20 18:10 WBC RBC Hgb Hct MCV MCHC RDW Plt Count Lymph % (Auto) [place] % (Auto) Lymph # (Auto) [place] # (Auto) Seg Neutrophils % Seg Neuts % (Manual) Lymphocytes % (Manual) Monocytes % (Manual) Nucleated RBC % Seg Neutrophils # Seg Neutrophils # Man Lymphocytes # (Manual) Monocytes # (Manual) PT INR APTT D-Dimer Heparin Anti-Xa Level ABG pH 7.477 H POC ABG pCO2 POC ABG pO2 ABG pO2 ABG HCO3 40.6 H ABG O2 Saturation ABG Base Excess 15.2 H ABG Hemoglobin 9.0 L ABG Oxyhemoglobin ABG Sodium ABG Potassium ABG Glucose Oxyhemoglobin 94.7 L Carboxyhemoglobin Sodium Potassium Chloride Carbon Dioxide BUN Creatinine Glucose POC Glucose 179 H 165 H Lactic Acid Calcium Phosphorus Magnesium Ferritin Lactate Dehydrogenase C-Reactive Protein NT-Pro-B Natriuret Pep Total Protein Albumin Triglycerides Arterial Blood Glucose Urine pH Ur Specific [place] Coronavirus (PCR) 04/15/21 04/16/21 04/16/21 23:39 04:33 04:33 WBC 13.1 H RBC 3.26 L Hgb 9.5 L Hct 30.2 L MCV MCHC 31 L RDW 16.2 H Plt Count Lymph % (Auto) [place] % (Auto) Lymph # (Auto) [place] # (Auto) Seg Neutrophils % Seg Neuts % (Manual) Lymphocytes % (Manual) Monocytes % (Manual) Nucleated RBC % Seg Neutrophils # Seg Neutrophils # Man Lymphocytes # (Manual) Monocytes # (Manual) PT INR APTT D-Dimer Heparin Anti-Xa Level ABG pH POC ABG pCO2 POC ABG pO2 ABG pO2 ABG HCO3 ABG O2 Saturation ABG Base Excess ABG Hemoglobin ABG Oxyhemoglobin ABG Sodium ABG Potassium ABG Glucose Oxyhemoglobin Carboxyhemoglobin Sodium Potassium Chloride 95.8 L Carbon Dioxide 34 H BUN 24 H Creatinine 0.4 L Glucose 153 H POC Glucose 155 H Lactic Acid Calcium Phosphorus Magnesium 2.40 H Ferritin Lactate Dehydrogenase C-Reactive Protein NT-Pro-B Natriuret Pep Total Protein Albumin Triglycerides Arterial Blood Glucose Urine pH Ur Specific [place] Coronavirus (PCR) 04/16/21 04/16/21 04/16/21 04:55 05:29 11:02 WBC RBC Hgb Hct MCV MCHC RDW Plt Count Lymph % (Auto) [place] % (Auto) Lymph # (Auto) [place] # (Auto) Seg Neutrophils % Seg Neuts % (Manual) Lymphocytes % (Manual) Monocytes % (Manual) Nucleated RBC % Seg Neutrophils # Seg Neutrophils # Man Lymphocytes # (Manual) Monocytes # (Manual) PT INR APTT D-Dimer Heparin Anti-Xa Level ABG pH 7.487 H POC ABG pCO2 POC ABG pO2 ABG pO2 75.4 L ABG HCO3 40.6 H ABG O2 Saturation ABG Base Excess 15.3 H ABG Hemoglobin 8.9 L ABG Oxyhemoglobin ABG Sodium ABG Potassium ABG Glucose Oxyhemoglobin Carboxyhemoglobin Sodium Potassium Chloride Carbon Dioxide BUN Creatinine Glucose POC Glucose 168 H 170 H Lactic Acid Calcium Phosphorus Magnesium Ferritin Lactate Dehydrogenase C-Reactive Protein NT-Pro-B Natriuret Pep Total Protein Albumin Triglycerides Arterial Blood Glucose Urine pH Ur Specific [place] Coronavirus (PCR) 04/16/21 04/16/21 04/17/21 16:13 23:41 04:25 WBC 12.5 H RBC 3.00 L Hgb 8.9 L Hct 27.2 L MCV MCHC RDW 16.0 H Plt Count Lymph % (Auto) [place] % (Auto) Lymph # (Auto) [place] # (Auto) Seg Neutrophils % Seg Neuts % (Manual) Lymphocytes % (Manual) Monocytes % (Manual) Nucleated RBC % Seg Neutrophils # Seg Neutrophils # Man Lymphocytes # (Manual) Monocytes # (Manual) PT INR APTT D-Dimer Heparin Anti-Xa Level ABG pH POC ABG pCO2 POC ABG pO2 ABG pO2 ABG HCO3 ABG O2 Saturation ABG Base Excess ABG Hemoglobin ABG Oxyhemoglobin ABG Sodium ABG Potassium ABG Glucose Oxyhemoglobin Carboxyhemoglobin Sodium Potassium Chloride Carbon Dioxide BUN Creatinine Glucose POC Glucose 167 H 150 H Lactic Acid Calcium Phosphorus Magnesium Ferritin Lactate Dehydrogenase C-Reactive Protein NT-Pro-B Natriuret Pep Total Protein Albumin Triglycerides Arterial Blood Glucose Urine pH Ur Specific [place] Coronavirus (PCR) 04/17/21 04/17/21 04/17/21 04:25 05:23 11:18 WBC RBC Hgb Hct MCV MCHC RDW Plt Count Lymph % (Auto) [place] % (Auto) Lymph # (Auto) [place] # (Auto) Seg Neutrophils % Seg Neuts % (Manual) Lymphocytes % (Manual) Monocytes % (Manual) Nucleated RBC % Seg Neutrophils # Seg Neutrophils # Man Lymphocytes # (Manual) Monocytes # (Manual) PT INR APTT D-Dimer Heparin Anti-Xa Level ABG pH POC ABG pCO2 POC ABG pO2 ABG pO2 ABG HCO3 ABG O2 Saturation ABG Base Excess ABG Hemoglobin ABG Oxyhemoglobin ABG Sodium ABG Potassium ABG Glucose Oxyhemoglobin Carboxyhemoglobin Sodium 136 L Potassium Chloride 92.4 L Carbon Dioxide 36 H BUN 23 H Creatinine 0.4 L Glucose 145 H POC Glucose 128 H 163 H Lactic Acid Calcium Phosphorus Magnesium Ferritin Lactate Dehydrogenase C-Reactive Protein NT-Pro-B Natriuret Pep Total Protein Albumin Triglycerides Arterial Blood Glucose Urine pH Ur Specific [place] Coronavirus (PCR) 04/17/21 04/17/21 04/18/21 16:50 21:04 00:18 WBC RBC Hgb Hct MCV MCHC RDW Plt Count Lymph % (Auto) [place] % (Auto) Lymph # (Auto) [place] # (Auto) Seg Neutrophils % Seg Neuts % (Manual) Lymphocytes % (Manual) Monocytes % (Manual) Nucleated RBC % Seg Neutrophils # Seg Neutrophils # Man Lymphocytes # (Manual) Monocytes # (Manual) PT INR APTT D-Dimer Heparin Anti-Xa Level ABG pH POC ABG pCO2 POC ABG pO2 ABG pO2 ABG HCO3 ABG O2 Saturation ABG Base Excess ABG Hemoglobin ABG Oxyhemoglobin ABG Sodium ABG Potassium ABG Glucose Oxyhemoglobin Carboxyhemoglobin Sodium Potassium Chloride Carbon Dioxide BUN Creatinine Glucose POC Glucose 137 H 186 H 194 H Lactic Acid Calcium Phosphorus Magnesium Ferritin Lactate Dehydrogenase C-Reactive Protein NT-Pro-B Natriuret Pep Total Protein Albumin Triglycerides Arterial Blood Glucose Urine pH Ur Specific [place] Coronavirus (PCR) 04/18/21 04/18/21 04/18/21 04:20 04:20 05:21 WBC 14.2 H RBC 2.92 L Hgb 8.5 L Hct 26.3 L MCV MCHC RDW 16.1 H Plt Count Lymph % (Auto) [place] % (Auto) Lymph # (Auto) [place] # (Auto) Seg Neutrophils % Seg Neuts % (Manual) Lymphocytes % (Manual) Monocytes % (Manual) Nucleated RBC % Seg Neutrophils # Seg Neutrophils # Man Lymphocytes # (Manual) Monocytes # (Manual) PT INR APTT D-Dimer Heparin Anti-Xa Level ABG pH POC ABG pCO2 POC ABG pO2 ABG pO2 ABG HCO3 ABG O2 Saturation ABG Base Excess ABG Hemoglobin ABG Oxyhemoglobin ABG Sodium ABG Potassium ABG Glucose Oxyhemoglobin Carboxyhemoglobin Sodium Potassium Chloride 95.7 L Carbon Dioxide 33 H BUN 21 H Creatinine 0.3 L Glucose 120 H POC Glucose 107 H Lactic Acid Calcium Phosphorus Magnesium Ferritin Lactate Dehydrogenase C-Reactive Protein NT-Pro-B Natriuret Pep Total Protein Albumin Triglycerides Arterial Blood Glucose Urine pH Ur Specific [place] Coronavirus (PCR) 04/18/21 04/18/21 04/18/21 05:26 11:30 11:33 WBC RBC Hgb Hct MCV MCHC RDW Plt Count Lymph % (Auto) [place] % (Auto) Lymph # (Auto) [place] # (Auto) Seg Neutrophils % Seg Neuts % (Manual) Lymphocytes % (Manual) Monocytes % (Manual) Nucleated RBC % Seg Neutrophils # Seg Neutrophils # Man Lymphocytes # (Manual) Monocytes # (Manual) PT INR APTT D-Dimer Heparin Anti-Xa Level ABG pH 7.469 H POC ABG pCO2 POC ABG pO2 ABG pO2 108.9 H ABG HCO3 36.2 H ABG O2 Saturation ABG Base Excess 11.2 H ABG Hemoglobin 8.8 L ABG Oxyhemoglobin ABG Sodium ABG Potassium ABG Glucose Oxyhemoglobin Carboxyhemoglobin Sodium Potassium Chloride Carbon Dioxide BUN Creatinine Glucose POC Glucose 111 H 113 H Lactic Acid Calcium Phosphorus Magnesium Ferritin Lactate Dehydrogenase C-Reactive Protein NT-Pro-B Natriuret Pep Total Protein Albumin Triglycerides Arterial Blood Glucose Urine pH Ur Specific [place] Coronavirus (PCR) 04/18/21 04/18/21 04/19/21 16:53 23:26 04:26 WBC 13.6 H RBC 2.69 L Hgb 8.5 L Hct 24.4 L MCV MCHC 35 H RDW 15.9 H Plt Count Lymph % (Auto) [place] % (Auto) Lymph # (Auto) [place] # (Auto) Seg Neutrophils % Seg Neuts % (Manual) Lymphocytes % (Manual) Monocytes % (Manual) Nucleated RBC % Seg Neutrophils # Seg Neutrophils # Man Lymphocytes # (Manual) Monocytes # (Manual) PT INR APTT D-Dimer Heparin Anti-Xa Level ABG pH POC ABG pCO2 POC ABG pO2 ABG pO2 ABG HCO3 ABG O2 Saturation ABG Base Excess ABG Hemoglobin ABG Oxyhemoglobin ABG Sodium ABG Potassium ABG Glucose Oxyhemoglobin Carboxyhemoglobin Sodium Potassium Chloride Carbon Dioxide BUN Creatinine Glucose POC Glucose 139 H 137 H Lactic Acid Calcium Phosphorus Magnesium Ferritin Lactate Dehydrogenase C-Reactive Protein NT-Pro-B Natriuret Pep Total Protein Albumin Triglycerides Arterial Blood Glucose Urine pH Ur Specific [place] Coronavirus (PCR) 04/19/21 04/19/21 04/19/21 04:26 05:16 11:01 WBC RBC Hgb Hct MCV MCHC RDW Plt Count Lymph % (Auto) [place] % (Auto) Lymph # (Auto) [place] # (Auto) Seg Neutrophils % Seg Neuts % (Manual) Lymphocytes % (Manual) Monocytes % (Manual) Nucleated RBC % Seg Neutrophils # Seg Neutrophils # Man Lymphocytes # (Manual) Monocytes # (Manual) PT INR APTT D-Dimer Heparin Anti-Xa Level ABG pH POC ABG pCO2 POC ABG pO2 ABG pO2 ABG HCO3 ABG O2 Saturation ABG Base Excess ABG Hemoglobin ABG Oxyhemoglobin ABG Sodium ABG Potassium ABG Glucose Oxyhemoglobin Carboxyhemoglobin Sodium Potassium Chloride Carbon Dioxide BUN Creatinine 0.3 L Glucose 163 H POC Glucose 154 H 164 H Lactic Acid Calcium Phosphorus Magnesium Ferritin Lactate Dehydrogenase C-Reactive Protein NT-Pro-B Natriuret Pep Total Protein Albumin Triglycerides Arterial Blood Glucose Urine pH Ur Specific [place] Coronavirus (PCR) 04/19/21 04/19/21 04/19/21 15:55 21:00 23:13 WBC RBC Hgb Hct MCV MCHC RDW Plt Count Lymph % (Auto) [place] % (Auto) Lymph # (Auto) [place] # (Auto) Seg Neutrophils % Seg Neuts % (Manual) Lymphocytes % (Manual) Monocytes % (Manual) Nucleated RBC % Seg Neutrophils # Seg Neutrophils # Man Lymphocytes # (Manual) Monocytes # (Manual) PT INR APTT D-Dimer Heparin Anti-Xa Level ABG pH POC ABG pCO2 POC ABG pO2 ABG pO2 ABG HCO3 ABG O2 Saturation ABG Base Excess ABG Hemoglobin ABG Oxyhemoglobin ABG Sodium ABG Potassium ABG Glucose Oxyhemoglobin Carboxyhemoglobin Sodium Potassium Chloride Carbon Dioxide BUN Creatinine Glucose POC Glucose 138 H 151 H 147 H Lactic Acid Calcium Phosphorus Magnesium Ferritin Lactate Dehydrogenase C-Reactive Protein NT-Pro-B Natriuret Pep Total Protein Albumin Triglycerides Arterial Blood Glucose Urine pH Ur Specific [place] Coronavirus (PCR) 04/20/21 04/20/21 04/20/21 04:17 04:17 05:15 WBC 13.1 H RBC 2.94 L Hgb 8.8 L Hct 26.8 L MCV MCHC RDW 16.2 H Plt Count Lymph % (Auto) [place] % (Auto) Lymph # (Auto) [place] # (Auto) Seg Neutrophils % Seg Neuts % (Manual) Lymphocytes % (Manual) Monocytes % (Manual) Nucleated RBC % Seg Neutrophils # Seg Neutrophils # Man Lymphocytes # (Manual) Monocytes # (Manual) PT INR APTT D-Dimer Heparin Anti-Xa Level ABG pH POC ABG pCO2 POC ABG pO2 ABG pO2 ABG HCO3 ABG O2 Saturation ABG Base Excess ABG Hemoglobin ABG Oxyhemoglobin ABG Sodium ABG Potassium ABG Glucose Oxyhemoglobin Carboxyhemoglobin Sodium 135 L Potassium Chloride Carbon Dioxide BUN Creatinine 0.3 L Glucose 151 H POC Glucose 126 H Lactic Acid Calcium 8.3 L Phosphorus Magnesium Ferritin Lactate Dehydrogenase C-Reactive Protein NT-Pro-B Natriuret Pep Total Protein Albumin Triglycerides Arterial Blood Glucose Urine pH Ur Specific [place] Coronavirus (PCR) 04/20/21 04/20/21 04/20/21 11:03 16:01 23:54 WBC RBC Hgb Hct MCV MCHC RDW Plt Count Lymph % (Auto) [place] % (Auto) Lymph # (Auto) [place] # (Auto) Seg Neutrophils % Seg Neuts % (Manual) Lymphocytes % (Manual) Monocytes % (Manual) Nucleated RBC % Seg Neutrophils # Seg Neutrophils # Man Lymphocytes # (Manual) Monocytes # (Manual) PT INR APTT D-Dimer Heparin Anti-Xa Level ABG pH POC ABG pCO2 POC ABG pO2 ABG pO2 ABG HCO3 ABG O2 Saturation ABG Base Excess ABG Hemoglobin ABG Oxyhemoglobin ABG Sodium ABG Potassium ABG Glucose Oxyhemoglobin Carboxyhemoglobin Sodium Potassium Chloride Carbon Dioxide BUN Creatinine Glucose POC Glucose 154 H 152 H 145 H Lactic Acid Calcium Phosphorus Magnesium Ferritin Lactate Dehydrogenase C-Reactive Protein NT-Pro-B Natriuret Pep Total Protein Albumin Triglycerides Arterial Blood Glucose Urine pH Ur Specific [place] Coronavirus (PCR) 04/21/21 04/21/21 04/21/21 04:39 11:20 11:37 WBC RBC Hgb Hct MCV MCHC RDW Plt Count Lymph % (Auto) [place] % (Auto) Lymph # (Auto) [place] # (Auto) Seg Neutrophils % Seg Neuts % (Manual) Lymphocytes % (Manual) Monocytes % (Manual) Nucleated RBC % Seg Neutrophils # Seg Neutrophils # Man Lymphocytes # (Manual) Monocytes # (Manual) PT INR APTT D-Dimer Heparin Anti-Xa Level ABG pH 7.503 H POC ABG pCO2 POC ABG pO2 ABG pO2 ABG HCO3 ABG O2 Saturation ABG Base Excess ABG Hemoglobin 10.8 L ABG Oxyhemoglobin ABG Sodium ABG Potassium ABG Glucose Oxyhemoglobin Carboxyhemoglobin 0.1 L Sodium Potassium Chloride Carbon Dioxide BUN Creatinine 0.3 L Glucose 174 H POC Glucose 147 H Lactic Acid Calcium Phosphorus Magnesium Ferritin Lactate Dehydrogenase C-Reactive Protein NT-Pro-B Natriuret Pep Total Protein Albumin Triglycerides Arterial Blood Glucose Urine pH Ur Specific [place] Coronavirus (PCR) 04/21/21 04/21/21 04/21/21 11:48 12:11 17:56 WBC 14.5 H RBC 3.08 L Hgb 9.3 L Hct 28.2 L MCV MCHC RDW 16.5 H Plt Count Lymph % (Auto) [place] % (Auto) Lymph # (Auto) [place] # (Auto) Seg Neutrophils % Seg Neuts % (Manual) Lymphocytes % (Manual) Monocytes % (Manual) Nucleated RBC % Seg Neutrophils # Seg Neutrophils # Man Lymphocytes # (Manual) Monocytes # (Manual) PT INR APTT D-Dimer Heparin Anti-Xa Level ABG pH POC ABG pCO2 POC ABG pO2 ABG pO2 ABG HCO3 ABG O2 Saturation ABG Base Excess ABG Hemoglobin ABG Oxyhemoglobin ABG Sodium ABG Potassium ABG Glucose Oxyhemoglobin Carboxyhemoglobin Sodium Potassium Chloride Carbon Dioxide BUN Creatinine Glucose POC Glucose 154 H 138 H Lactic Acid Calcium Phosphorus Magnesium Ferritin Lactate Dehydrogenase C-Reactive Protein NT-Pro-B Natriuret Pep Total Protein Albumin Triglycerides Arterial Blood Glucose Urine pH Ur Specific [place] Coronavirus (PCR) 04/21/21 04/22/21 04/22/21 23:31 04:30 04:30 WBC 12.3 H RBC 3.20 L Hgb 9.5 L Hct 29.3 L MCV MCHC RDW 16.6 H Plt Count Lymph % (Auto) [place] % (Auto) Lymph # (Auto) [place] # (Auto) Seg Neutrophils % Seg Neuts % (Manual) Lymphocytes % (Manual) Monocytes % (Manual) Nucleated RBC % Seg Neutrophils # Seg Neutrophils # Man Lymphocytes # (Manual) Monocytes # (Manual) PT INR APTT D-Dimer Heparin Anti-Xa Level ABG pH POC ABG pCO2 POC ABG pO2 ABG pO2 ABG HCO3 ABG O2 Saturation ABG Base Excess ABG Hemoglobin ABG Oxyhemoglobin ABG Sodium ABG Potassium ABG Glucose Oxyhemoglobin Carboxyhemoglobin Sodium Potassium Chloride Carbon Dioxide BUN Creatinine 0.3 L Glucose 125 H POC Glucose 162 H Lactic Acid Calcium Phosphorus Magnesium Ferritin Lactate Dehydrogenase C-Reactive Protein NT-Pro-B Natriuret Pep Total Protein Albumin Triglycerides Arterial Blood Glucose Urine pH Ur Specific [place] Coronavirus (PCR) 04/22/21 04/22/21 04/22/21 05:17 12:03 17:22 WBC RBC Hgb Hct MCV MCHC RDW Plt Count Lymph % (Auto) [place] % (Auto) Lymph # (Auto) [place] # (Auto) Seg Neutrophils % Seg Neuts % (Manual) Lymphocytes % (Manual) Monocytes % (Manual) Nucleated RBC % Seg Neutrophils # Seg Neutrophils # Man Lymphocytes # (Manual) Monocytes # (Manual) PT INR APTT D-Dimer Heparin Anti-Xa Level ABG pH POC ABG pCO2 POC ABG pO2 ABG pO2 ABG HCO3 ABG O2 Saturation ABG Base Excess ABG Hemoglobin ABG Oxyhemoglobin ABG Sodium ABG Potassium ABG Glucose Oxyhemoglobin Carboxyhemoglobin Sodium Potassium Chloride Carbon Dioxide BUN Creatinine Glucose POC Glucose 112 H 156 H 133 H Lactic Acid Calcium Phosphorus Magnesium Ferritin Lactate Dehydrogenase C-Reactive Protein NT-Pro-B Natriuret Pep Total Protein Albumin Triglycerides Arterial Blood Glucose Urine pH Ur Specific [place] Coronavirus (PCR) 04/23/21 04/23/21 04/23/21 00:58 05:08 12:59 WBC RBC Hgb Hct MCV MCHC RDW Plt Count Lymph % (Auto) [place] % (Auto) Lymph # (Auto) [place] # (Auto) Seg Neutrophils % Seg Neuts % (Manual) Lymphocytes % (Manual) Monocytes % (Manual) Nucleated RBC % Seg Neutrophils # Seg Neutrophils # Man Lymphocytes # (Manual) Monocytes # (Manual) PT INR APTT D-Dimer Heparin Anti-Xa Level ABG pH POC ABG pCO2 POC ABG pO2 ABG pO2 ABG HCO3 ABG O2 Saturation ABG Base Excess ABG Hemoglobin ABG Oxyhemoglobin ABG Sodium ABG Potassium ABG Glucose Oxyhemoglobin Carboxyhemoglobin Sodium Potassium Chloride Carbon Dioxide BUN Creatinine Glucose POC Glucose 133 H 156 H 139 H Lactic Acid Calcium Phosphorus Magnesium Ferritin Lactate Dehydrogenase C-Reactive Protein NT-Pro-B Natriuret Pep Total Protein Albumin Triglycerides Arterial Blood Glucose Urine pH Ur Specific [place] Coronavirus (PCR) 04/23/21 04/23/21 04/24/21 18:12 23:41 04:00 WBC 12.9 H RBC 3.33 L Hgb 10.2 L Hct 30.1 L MCV MCHC RDW 16.6 H Plt Count Lymph % (Auto) [place] % (Auto) Lymph # (Auto) [place] # (Auto) Seg Neutrophils % Seg Neuts % (Manual) Lymphocytes % (Manual) Monocytes % (Manual) Nucleated RBC % Seg Neutrophils # Seg Neutrophils # Man Lymphocytes # (Manual) Monocytes # (Manual) PT INR APTT D-Dimer Heparin Anti-Xa Level ABG pH POC ABG pCO2 POC ABG pO2 ABG pO2 ABG HCO3 ABG O2 Saturation ABG Base Excess ABG Hemoglobin ABG Oxyhemoglobin ABG Sodium ABG Potassium ABG Glucose Oxyhemoglobin Carboxyhemoglobin Sodium Potassium Chloride Carbon Dioxide BUN Creatinine Glucose POC Glucose 148 H 127 H Lactic Acid Calcium Phosphorus Magnesium Ferritin Lactate Dehydrogenase C-Reactive Protein NT-Pro-B Natriuret Pep Total Protein Albumin Triglycerides Arterial Blood Glucose Urine pH Ur Specific [place] Coronavirus (PCR) 04/24/21 04/24/21 04/24/21 04:00 05:15 11:45 WBC RBC Hgb Hct MCV MCHC RDW Plt Count Lymph % (Auto) [place] % (Auto) Lymph # (Auto) [place] # (Auto) Seg Neutrophils % Seg Neuts % (Manual) Lymphocytes % (Manual) Monocytes % (Manual) Nucleated RBC % Seg Neutrophils # Seg Neutrophils # Man Lymphocytes # (Manual) Monocytes # (Manual) PT INR APTT D-Dimer Heparin Anti-Xa Level ABG pH POC ABG pCO2 POC ABG pO2 ABG pO2 ABG HCO3 ABG O2 Saturation ABG Base Excess ABG Hemoglobin ABG Oxyhemoglobin ABG Sodium ABG Potassium ABG Glucose Oxyhemoglobin Carboxyhemoglobin Sodium Potassium Chloride Carbon Dioxide BUN Creatinine 0.4 L Glucose 136 H POC Glucose 135 H 140 H Lactic Acid Calcium Phosphorus Magnesium Ferritin Lactate Dehydrogenase C-Reactive Protein NT-Pro-B Natriuret Pep Total Protein Albumin Triglycerides Arterial Blood Glucose Urine pH Ur Specific [place] Coronavirus (PCR) 04/24/21 04/24/21 04/24/21 16:06 18:26 23:48 WBC RBC Hgb Hct MCV MCHC RDW Plt Count Lymph % (Auto) [place] % (Auto) Lymph # (Auto) [place] # (Auto) Seg Neutrophils % Seg Neuts % (Manual) Lymphocytes % (Manual) Monocytes % (Manual) Nucleated RBC % Seg Neutrophils # Seg Neutrophils # Man Lymphocytes # (Manual) Monocytes # (Manual) PT INR APTT D-Dimer Heparin Anti-Xa Level ABG pH POC ABG pCO2 POC ABG pO2 ABG pO2 ABG HCO3 ABG O2 Saturation ABG Base Excess ABG Hemoglobin ABG Oxyhemoglobin ABG Sodium ABG Potassium ABG Glucose Oxyhemoglobin Carboxyhemoglobin Sodium Potassium Chloride Carbon Dioxide BUN Creatinine Glucose POC Glucose 141 H 141 H 129 H Lactic Acid Calcium Phosphorus Magnesium Ferritin Lactate Dehydrogenase C-Reactive Protein NT-Pro-B Natriuret Pep Total Protein Albumin Triglycerides Arterial Blood Glucose Urine pH Ur Specific [place] Coronavirus (PCR) 04/25/21 04/25/21 04/25/21 05:27 11:27 15:04 WBC RBC Hgb Hct MCV MCHC RDW Plt Count Lymph % (Auto) [place] % (Auto) Lymph # (Auto) [place] # (Auto) Seg Neutrophils % Seg Neuts % (Manual) Lymphocytes % (Manual) Monocytes % (Manual) Nucleated RBC % Seg Neutrophils # Seg Neutrophils # Man Lymphocytes # (Manual) Monocytes # (Manual) PT INR APTT D-Dimer Heparin Anti-Xa Level ABG pH POC ABG pCO2 POC ABG pO2 ABG pO2 ABG HCO3 ABG O2 Saturation ABG Base Excess ABG Hemoglobin ABG Oxyhemoglobin ABG Sodium ABG Potassium ABG Glucose Oxyhemoglobin Carboxyhemoglobin Sodium 135 L Potassium Chloride Carbon Dioxide BUN Creatinine 0.4 L Glucose 142 H POC Glucose 142 H 151 H Lactic Acid Calcium Phosphorus Magnesium Ferritin Lactate Dehydrogenase C-Reactive Protein NT-Pro-B Natriuret Pep Total Protein Albumin Triglycerides Arterial Blood Glucose Urine pH Ur Specific [place] Coronavirus (PCR) 04/25/21 04/26/21 04/26/21 23:34 05:36 07:51 WBC RBC Hgb Hct MCV MCHC RDW Plt Count Lymph % (Auto) [place] % (Auto) Lymph # (Auto) [place] # (Auto) Seg Neutrophils % Seg Neuts % (Manual) Lymphocytes % (Manual) Monocytes % (Manual) Nucleated RBC % Seg Neutrophils # Seg Neutrophils # Man Lymphocytes # (Manual) Monocytes # (Manual) PT INR APTT D-Dimer Heparin Anti-Xa Level ABG pH POC ABG pCO2 POC ABG pO2 ABG pO2 ABG HCO3 ABG O2 Saturation ABG Base Excess ABG Hemoglobin ABG Oxyhemoglobin ABG Sodium ABG Potassium ABG Glucose Oxyhemoglobin Carboxyhemoglobin Sodium Potassium Chloride Carbon Dioxide BUN Creatinine Glucose POC Glucose 127 H 135 H 129 H Lactic Acid Calcium Phosphorus Magnesium Ferritin Lactate Dehydrogenase C-Reactive Protein NT-Pro-B Natriuret Pep Total Protein Albumin Triglycerides Arterial Blood Glucose Urine pH Ur Specific [place] Coronavirus (PCR) 04/26/21 04/26/21 04/26/21 11:24 18:14 21:07 WBC RBC Hgb Hct MCV MCHC RDW Plt Count Lymph % (Auto) [place] % (Auto) Lymph # (Auto) [place] # (Auto) Seg Neutrophils % Seg Neuts % (Manual) Lymphocytes % (Manual) Monocytes % (Manual) Nucleated RBC % Seg Neutrophils # Seg Neutrophils # Man Lymphocytes # (Manual) Monocytes # (Manual) PT INR APTT D-Dimer Heparin Anti-Xa Level ABG pH POC ABG pCO2 POC ABG pO2 ABG pO2 ABG HCO3 ABG O2 Saturation ABG Base Excess ABG Hemoglobin ABG Oxyhemoglobin ABG Sodium ABG Potassium ABG Glucose Oxyhemoglobin Carboxyhemoglobin Sodium Potassium Chloride Carbon Dioxide BUN Creatinine Glucose POC Glucose 129 H 109 H 122 H Lactic Acid Calcium Phosphorus Magnesium Ferritin Lactate Dehydrogenase C-Reactive Protein NT-Pro-B Natriuret Pep Total Protein Albumin Triglycerides Arterial Blood Glucose Urine pH Ur Specific [place] Coronavirus (PCR) 04/27/21 04/27/21 04/27/21 06:13 11:03 16:32 WBC RBC Hgb Hct MCV MCHC RDW Plt Count Lymph % (Auto) [place] % (Auto) Lymph # (Auto) [place] # (Auto) Seg Neutrophils % Seg Neuts % (Manual) Lymphocytes % (Manual) Monocytes % (Manual) Nucleated RBC % Seg Neutrophils # Seg Neutrophils # Man Lymphocytes # (Manual) Monocytes # (Manual) PT INR APTT D-Dimer Heparin Anti-Xa Level ABG pH POC ABG pCO2 POC ABG pO2 ABG pO2 ABG HCO3 ABG O2 Saturation ABG Base Excess ABG Hemoglobin ABG Oxyhemoglobin ABG Sodium ABG Potassium ABG Glucose Oxyhemoglobin Carboxyhemoglobin Sodium Potassium Chloride Carbon Dioxide BUN Creatinine Glucose POC Glucose 112 H 134 H 136 H Lactic Acid Calcium Phosphorus Magnesium Ferritin Lactate Dehydrogenase C-Reactive Protein NT-Pro-B Natriuret Pep Total Protein Albumin Triglycerides Arterial Blood Glucose Urine pH Ur Specific [place] Coronavirus (PCR) 04/28/21 04/28/21 00:05 05:31 WBC RBC Hgb Hct MCV MCHC RDW Plt Count Lymph % (Auto) [place] % (Auto) Lymph # (Auto) [place] # (Auto) Seg Neutrophils % Seg Neuts % (Manual) Lymphocytes % (Manual) Monocytes % (Manual) Nucleated RBC % Seg Neutrophils # Seg Neutrophils # Man Lymphocytes # (Manual) Monocytes # (Manual) PT INR APTT D-Dimer Heparin Anti-Xa Level ABG pH POC ABG pCO2 POC ABG pO2 ABG pO2 ABG HCO3 ABG O2 Saturation ABG Base Excess ABG Hemoglobin ABG Oxyhemoglobin ABG Sodium ABG Potassium ABG Glucose Oxyhemoglobin Carboxyhemoglobin Sodium Potassium Chloride Carbon Dioxide BUN Creatinine Glucose POC Glucose 113 H 116 H Lactic Acid Calcium Phosphorus Magnesium Ferritin Lactate Dehydrogenase C-Reactive Protein NT-Pro-B Natriuret Pep Total Protein Albumin Triglycerides Arterial Blood Glucose Urine pH Ur Specific [place] Coronavirus (PCR) Allied health notes reviewed: nursing
[2021-04-28] MEDS: DOCUSATE SODIUM 100 MG/10 ML ORAL LIQD FEEDTUBE SCH ×2 (10:46→22:16)
[2021-04-28] MEDS: APIXABAN 5 MG TAB FEEDTUBE SCH ×2 (10:46→22:15)
[2021-04-28] MEDS: GLYCOPYRROLATE 2 MG TAB PO SCH ×3 (10:46→19:58)
[2021-04-28] MEDS: METOPROLOL TARTRATE 25 MG TAB FEEDTUBE SCH ×2 (10:46→22:15)
[2021-04-28] MEDS: SCOPOLAMINE TRANSDERMAL PATCH 72 HR TD SCH (10:47)
[2021-04-28] MEDS: amLODIPine 10 MG TAB FEEDTUBE SCH (10:47)
[2021-04-28] MEDS: FAMOTIDINE 20 MG TAB FEEDTUBE SCH ×2 (10:47→22:15)
[2021-04-28] MEDS: DOXAZOSIN 1 MG TAB FEEDTUBE SCH ×2 (10:47→22:15)
--- NOTE | 2021-04-28 15:12 | Progress Note ---
Assessment and Plan Cultures: SARS CoV2 PCR: positive 03/08/2021 blood culture: no growth 03/10/2021 sputum culture: Usual respiratory marlyn 03/16/2021 blood culture: no growth 03/18/2021 sputum culture: Stenotrophomonas 03/31/2021 Blood culture: no growth 03/31/2021 tracheal aspirate: usual resp marlyn 04/14/2021 sputum culture: MSSA 04/14/2021 blood culture: No growth 04/14/2021 urine culture: No growth 04/15/2021 right middle lobe respiratory culture: MSSA A/P: 61-year-old male with diabetes, hypertension admitted to the hospital with complaints of shortness of breath and feeling weak for the last 1 week: #Sepsis secondary to bilateral pneumonia: secondary to COVID-19. Completed remdesivir, s/p Actemra, steroids. Completed abx for bacterial pneumonia, Stenotrophomonas. #MSSA pneumonia #Acute hypoxic respiratory failure: s/p trach and PEG. #DM #HTN #Acute DVT in RUE Recs: -continue higher dose cefazolin 3 g q8 hrs, may need a long course of abx (MSSA can cause severe pneumonia including necrotizing pneumonia). PLanned 14 days -monitor fever and WBC G. Joslyn Goins MD [facility] ([facility] O: [phone] F: [phone] Subjective Date of service: 04/28/21 Principal diagnosis: COVID-19 infection; DM II; Bilateral pneumonia; Obesity; HTN Interval history: Afebrile, no acute change. Objective - Exam Narrative Exam: Physical exam deferred to reduce risk of transmission of COVID-19. Please refer to primary team's note. - Constitutional Vitals: Vital Signs Temp Pulse Resp BP Pulse Ox 98.6 F 84 29 H 137/84 97 04/28/21 12:00 04/28/21 13:43 04/28/21 13:00 04/28/21 13:43 04/28/21 13:00 Temperature -Last 24 Hours Temperature 98.6 F Temperature 98.5 F Temperature 98.3 F Temperature 98.7 F Temperature 99 F Temperature 98.6 F - Labs CBC & Chem 7: 04/24/21 04:00 04/25/21 15:04 Labs: Abnormal lab results 04/27/21 04/28/21 04/28/21 Range/Units 16:32 00:05 05:31 POC Glucose 136 H 113 H 116 H (70-105) mg/dL 04/28/21 Range/Units 11:20 POC Glucose 116 H (70-105) mg/dL
[2021-04-28] MEDS: INSULIN GLARGINE 100 UNITS/ML SUB-Q SCH (22:16)
[2021-04-29] MEDS: ACETAMINOPHEN 325 MG TAB PO PRN (02:06)
[2021-04-29] MEDS: oxyCODONE 5 MG TAB FEEDTUBE PRN ×3 (02:07→21:11)
[2021-04-29] MEDS: INSULIN LISPRO 100 UNIT/ML SUB-Q SCH ×4 (02:08→18:30)
[2021-04-29 05:31] LABS: Hematocrit 29.1 % (35.5-45.6); Hemoglobin 9.8 gm/dl (11.8-15.2); Mean Corpuscular HGB Conc 34 % (32-34); Mean Corpuscular Volume 92 fl (84-94); Platelet Count 347 K/mm3 (140-440); Red Blood Count 3.15 M/mm3 (3.65-5.03); Red Cell Distribution Width 17.6 % (13.2-15.2)
[2021-04-29 05:51] LABS: Blood Urea Nitrogen 8 mg/dL (9-20); Calcium 9.1 mg/dL (8.4-10.2); Hemolysis Index 4
[2021-04-29 05:56] LABS: BUN/Creatinine Ratio 27
[2021-04-29] MEDS: hydrALAZINE 25 MG TAB FEEDTUBE SCH ×3 (06:00→21:12)
[2021-04-29] MEDS: ARFORMOTEROL 15 MCG/2 ML NEBU IH SCH ×2 (08:06→20:08)
--- NOTE | 2021-04-29 08:50 | Progress Note ---
Assessment and Plan Assessment and plan: This is a 61-year-old male with past medical history of HTN and DM admitted for sepsis and acute hypoxic respiratory failure 2/2 COVID pneumonia s/p Trach and PEG on 2/ Hospital Course to Date: 03/09: The patient was seen and evaluated today, and he was found to be hemodynamically stable. The patient is currently on BiPAP for possible COVID-19 pneumonia. He was started on Lovenox 1mg/kg for DVT ppx in the setting of d- dimer > 10,000. Infectious Disease was consulted. The patient is pending a TTE. 03/10: No acute events overnight, patient was intubated in the afternoon transferred to ICU 03/11: Patient started on Lantus, free water flushes increased, propofol drip res umed and oral antihypertensive added. 03/12: lantus increased, k at 5, will monitor. I updated his family and his stated that he is not vaccinated. He does have HTN and she will call the RN to update home medications. She did say he takes bystolic and amlopine. She inquired about ventilator and lab work. She had no further questions. 03/13: KVNG overnight. Patient remains hyperglycemic, basal insulin adjusted and increased to Q12hrs. Patient is overall net positive since admit X1 dose of IV lasix, repeat BMP this afternoon. 03/14: Failed SAT this am due to increase agitation, tachycardia and hypertension. Remains on propofol and fentanyl gtt. Hyperkalemia treated with PO kayaxalate. Patient responded to IV lasix yesterday additional dose again today for a net negative balance. Repeat BMP this afternoon. Insulin adjusted for hyperglycemia. 03/15: Remains encephalopathic, not following commansd. Orders placed for CT head/Brain and Neuro consulted. Rectal bleeding subsided, most likely due to hemorrhoids. H&H is stable will continue to monitor. Kayaxexalate for high K, repeat labs 4 to 6hrs post treatment. 03/16: Still agiated this am, CT head with no acute Abn. CXR and ABG noted- evolving pna and worsening hypoxia, now with low grade fevers. Sputum culture ordered, IV Abx added, ID on cosult. 03/17: This am ABG noted, hypoxia improved. Continue to wean FiO2 as tolerated. Still with low grade fevers, on IV Abx per ID. Still with periods of confusion despite sedation, seroquel increased. F/u CXR in the am 03/18: still very agitated especially when off sedation, with hypertension and tachycardia. Continue sedation for RASS -2, PRN antihypertensive for SPB greater than 160. This febrile this am, continue current IV abx per ID 03/19: Patient afebrile overnight, continue IV Abx per ID. ABG also improved this am, continue to wean FIO2 as tolerated. PRN antihypertensive for hypertension. 03/20: Hyperkalemia treated with Kayexalate, Good discontinued, vancomycin and cefepime stopped started Bactrim by ID. Steroid taper started. 03/21: BB started for hypertension, Seroquel increased for agitation and Librium started no acute events reported overnight. [facility] made vent changes 03/22: Adjustment to anxiolytics, respiratory rate on ventilator per [facility]. Patient noted to have bleeding hemorrhoids with clot, requested RN to remove bowel management system and will order Preparation H. 03/23: Given no confirmed DVT or PE (only superficial thrombus noted on Dopplers) therapeutic Lovenox changed to prophylactic Lovenox. Started on doxazosin to help with retention. Consulted surgery for tracheostomy and propofol discontinued. 03/24: Surgery consult completed, patient changed to prophylaxis anticoagulation, started on doxazosin yesterday with plans to remove Good catheter in 48 hours. Patient with slight hypokalemia today and given Kayexalate. No acute events reported overnight. 03/25: No acute events reported overnight. Patient remains on fentanyl drip and on CPAP trial this morning. 03/26: no acute events reported overnight. placed on CPAP this AM, remains on fent/librium. scheduled for trach/peg this week. 03/27: Hypoglycemic this am, will decreased lantus to Qhs. Plan for possible Trach and Peg by Gen Surg this am. Case management to arrange possible LTAC placement 03/28: KVNG overnight. Tolerating PST this am. Plan for trach and PEG tomorrow by Gen. Surgery, NPO after midnight. 03/29: No significant changes overnight. Plan for trach and Peg today. Case management to arrange possible LTAC placement 03/30. S/p Trach and PEG, no complications noted. High residual yesterday despite NPO status, reglan added X2 days. Per RN no residual this am, patient is tolerating TF. Continue to advance TF as tolerated. Norvasc added for hypertension. Pitting edema also appreciated, some diuretic might be beneficial, will d/w CCM. Continue daily PST as tolerated. 03/31: Patient remains on the vent still on fentanyl gtt with periods of agitation. PRN analgesia added, plan to start weaning off fentanyl gtt. Febrile this am, completed IV abx course. Will panculture for now, ID is also following. 04/01: Still febrile overnight, cultures result pending, continue IV ABx per ID. Failed PST this am. Continue daily PST and vent wean per [facility]. Case management to arrange possible placement. 04/02: KVNG overnight. Fevers improved overnight, continue to follow cultures data, IV ABx per ID. Continue daily PST and wean vent as per [facility].\ 04/03: Given low procalcitonin, unchanged CXR and cultures with no growth cefepime was discontinued by ID. LTAC evaluation ongoing. No acute events reported overnight. 04/04: IV Lasix stopped today, Seroquel taper started, fentanyl drip on hold and steroids stopped. Pressure support trial again today. 04/05: Patient had to be restarted on fentanyl drip therefore Seroquel was increased back to 250 twice daily and he was started on scheduled narcotics and efforts to wean fentanyl drip. Doxazosin was increased to twice daily as patient still had retention issues on doxazosin once a day. Patient was denied LTAC placement. CPAP trial today. 04/06: Right upper extremity ultrasound obtained due to edema which showed DVT. Patient started on heparin drip. Overnight patient had hypoxia, tachypnea, tachycardia, hypotension and FiO2 was increased to 100%. RT titrating as tolerated. Plan was to start T-piece trials today. Patient has been denied LTAC placement. 04/07: BLE dopplar, continue lasix per [facility], CXR in AM. Increase in fio2 overnight d/t desaturation. Wean FiO2 as tolerated. 04/08: Patient remains on 65% FiO2, s/p Lasix for 3 doses, hyperkalemia noted today and medically treated. [facility] plans to consult heme/onc once FiO2 decreased. Remains on heparin gtt 04/09: No acute events reported overnight, possible heme-onc consult on Saturday or Saturday regarding upper extremity DVT, wean FiO2 as tolerated. Repeat CT head on Monday 04/10: Patient mentation is unchanged, repeat CT head today. Remains on heparin gtt per protocol. Continue daily PST as tolerated. 04/11: Increased work of breathing and high RR overnight, vent FiO2 increased to 55%. Resolved this am, patient is tolerating PST, no acute distress noted. Wean Fio2 as tolerated for SPO2 above 92%, Follow up CXR and ABG in the am. Antihypertensive regimen adjusted for better BP control. 04/12: Patient with coarse lungs and increased secretion today. This am CXR noted with worsen infiltrate, 40 of Lasix given, repeat CXR in the am. Patient remains afebrile, complete IV Abx course, VSS. Transitioned to PO Eliquis overnight, continue to keep patient net negative for better lung compliance. Continue daily PST as tolerated. 04/13: Patient is off sedation this am. Remains unresponsive. Librium D/C and Seroquel was adjusted to Qhs, PRN analgesia for pain management. Patient responded well to IV lasix, this am CXR with some improvement, additional IV lasix ordered again today. high CO2 also noted from this am, ABG ordered. Patient is tolerating PST this am, SPO2 remains above 95%. Continue daily PST plan to get patient off the vent for possible SNF placemement 04/14: Patient mentation is unchanged despite reducing sedative agents. Will hold all scheduled sedatives agents for now, PRN analgesics for pain management and vent synchrony. Patient spike a temp this am, orders placed for cultures, IV abx per ID. Additional lasix today, F/u CXR in the am. Patient is tolerating PST this am. 04/15: Remains febrile overnight. Culture data pending, back on IV Abx per ID. Gentle fluid management with IV lasix. Keep patient at a net negative balance. Continue daily PST as tolerated. 04/16: Open eyes spontaneously this am, but still not following commands. MRI brain ordered. Continue to avoid any sedative agents. Patient continue to respon d very well to IV diuretic, continue gentle diurese X3days as tolerated. Continue daily PST as tolerated. Plan is get patient off the vent for possible SNF placement. Patient remains febrile this am, now cefepine and Vanc, continue IV abx per ID. 04/17: We will repeat procalcitonin per ID, MRI brain pending, SNF placement pending, [facility] plans to start T-piece trials in the morning and will discontinue Good catheter again. 04/18: Overnight patient to be straight cath x2 but did eventually have spo ntaneous urine output today and Good catheter was not replaced, patient had MRI brain today and was started on T-piece trials. He received Versed for sedation for MRI brain. 04/19: Good catheter was not replaced overnight patient is still voiding, placed on T-piece today, scopolamine and Robinul restarted. 04/20: Patient T-piece trial again today, will decrease bowel regimen in a.m. for entering T-piece for 24 hours obtain gas in the a.m. Cefazolin increased 04/21: Patient remained on trach collar throughout the day, will be transitioned to IMCU. Good catheter was replaced overnight due to retention. 04/22: Patient continues to tolerate Trach collar, still with volume overload will continue with diuresis, monitor electrolytes, aggressive pulmonary toliet, aspiration precautions 04/23: Patient remains on trach collar which he is tolerating. Remains on cefazolin, Cardura and Lasix. 04/24: KVNG overnight. Patient is AAO, following commands, and tolerating T-piece. Continue PT 5X/week. Pending SNF vs Subacute rehab placement, case management to arrange. 04/25: KVNG overnight. Remains stable, tolerating T-piece. Plan for possible PSMV trial with speech once available. 04/26: Patient remains stable on T-piece. Awaiting possible SNF placement, case management to arrange. 04/27: Patient remains clinically stable continues on T-piece awaiting SNF placement. Mild leukocytosis but otherwise improving no fever noted at this time. Continue diuresis as there is improvement noted. He is able to vocalize words. Will defer to pulmonary about capping trials. 04/28: Continues to show some improvement. We will continue current management and diuresis as needed. Continue capping trial. Will check labs in a.m. Plan of care discussed with the patient and case management 04/29: Patient seen and examined resting comfortably labs are intact still anemic but stable. Continue current management we will run a trial of diuresis x3. Assessment and Plan #Acute Hypoxic Respiratory Failure #COVID Pneumonia - Intubated on 03/10 due to worsen hypoxia on BIPAP - 03/29 s/p Tracheostomy - T-piece- 28% and 5L - Pulmonary on consult - Continue Nebs per CCM - Pulmonary hygiene - keep patient net negative for better lung compliance - Aspiration precaution HOB above 30 - Continue SPO2 monitoring for SPO2 goal above 92% #Sepsis #COVID Pneumonia #MSSA pneumonia -Infectious disease consulted, appreciate recommendations -S/p remdesivir for 5 days -S/p Actemra 03/10/2021 -f/u blood culture -Monitor WBC and temperature curve -s/p steroids -04/18 procal 0.19 -03/16 Fungitell and histoplasma negative -On high dose Cefazolin per ID #Acute Encephalopathy-improved - AAO, following commands - CT head/brain no acute Abn. - Repeat CT head and MRI brain noted - Avoid benzodiazepine to reduce the possibility of delirium - Prn analgesia for pain management - Maintenance of sleep-wake cycle - PT consulted, appreciate recommendations: PT recommends subacute rehab if patient does not qualify for LTAC #Hypertension - 03/09 Echocardiogram shows a mildly dilated ascending aorta, normal LV systolic function, mild concentric LVH, LVEF 60 to 65% - Continue current antihypertensive regimen - PRN Labetalol for SBP above 160 - Continue Blood pressure monitoring per protocol #Urinary retention - Good catheter removed 04/17 and replaced 04/21 - Continue Doxazosin BID - Strict intake and output - Avoid nephrotoxic medications; Renally dose medications - Monitor and replace electrolytes as needed - Trend BMP #Acute right upper extremity DVT - Bilateral lower extremity ultrasounds negative for DVT, superficial thrombus in left gastrocnemius vein - CTA chest shows no gross pulm embolism - bilateral upper extremity ultrasound shows DVT in right upper extremity - Continue PO Eliquis - SCDs to BLE while in bed - Transfuse hemoglobin less than 7 - Monitor for signs of bleeding #Anemia -Stable, continue supportive care #Endo:Type 2 DM - Continue high dose SSI Q6hrs - Lantus qHs - Avoid Hypoglycemia History Interval history: Patient seen and examined, resting comfortable, still trach Piece in place. No n ew complaints, Following commands, actually vocalizing Hospitalist Physical - Physical exam Narrative exam: General appearance: Present: no acute distress, well-nourished, obese, vocalizing through the trach - EENT Eyes: Present: PERRL, EOM intact ENT: hearing intact, clear oral mucosa, dentition normal - Neck Neck: Present: Trach collar, ROM - Respiratory Respiratory effort: normal Respiratory: bilateral: CTA, diminished - Cardiovascular Rhythm: regular Heart Sounds: Present: S1 & S2. Absent: systolic murmur, diastolic murmur - Extremities Extremities: no ischemia, pulses intact, pulses symmetrical, normal temperature Peripheral Pulses: within normal limits - Abdominal General gastrointestinal: soft, non-tender, non-distended, normal bowel sounds - Integumentary Integumentary: Present: warm, +1 edema, overall improving - Psychiatric Psychiatric: cooperative - Neurologic Neurologic: CNII-XII intact, no focal deficits, moves all extremities - Allied Health Allied health notes reviewed: nursing, PT, OT, RT, social work - Constitutional Vitals: Temp Pulse Resp BP Pulse Ox 98.4 F 93 H 28 H 133/75 99 04/29/21 04:00 04/29/21 08:07 04/29/21 08:07 04/29/21 07:00 04/29/21 08:13 General appearance: Present: no acute distress, well-nourished, obese Results - Labs CBC & Chem 7: 04/29/21 05:03 04/29/21 05:03 Labs: Laboratory Last Values WBC 7.0 K/mm3 (4.5-11.0) 04/29/21 05:03 RBC 3.15 M/mm3 (3.65-5.03) L 04/29/21 05:03 Hgb 9.8 gm/dl (11.8-15.2) L 04/29/21 05:03 Hct 29.1 % (35.5-45.6) L 04/29/21 05:03 MCV 92 fl (84-94) 04/29/21 05:03 MCH 31 pg (28-32) 04/29/21 05:03 MCHC 34 % (32-34) 04/29/21 05:03 RDW 17.6 % (13.2-15.2) H 04/29/21 05:03 Plt Count 347 K/mm3 (140-440) 04/29/21 05:03 Lymph % (Auto) 7.6 % (13.4-35.0) L 03/31/21 13:30 Carter % (Auto) 9.5 % (0.0-7.3) H 03/31/21 13:30 Eos % (Auto) 4.1 % (0.0-4.3) 03/31/21 13:30 Baso % (Auto) 0.5 % (0.0-1.8) 03/31/21 13:30 Lymph # (Auto) 0.6 K/mm3 (1.2-5.4) L 03/31/21 13:30 Carter # (Auto) 0.7 K/mm3 (0.0-0.8) 03/31/21 13:30 Eos # (Auto) 0.3 K/mm3 (0.0-0.4) 03/31/21 13:30 Baso # (Auto) 0.0 K/mm3 (0.0-0.1) 03/31/21 13:30 Add Manual Diff Complete 04/11/21 06:47 Total Counted 100 04/11/21 06:47 Seg Neutrophils % 78.3 % (40.0-70.0) H 03/31/21 13:30 Seg Neuts % (Manual) 76.0 % (40.0-70.0) H 04/11/21 06:47 Band Neutrophils % 2.0 % 04/11/21 06:47 Lymphocytes % (Manual) 10.0 % (13.4-35.0) L 04/11/21 06:47 Reactive Lymphs % (Man) 0 % 04/11/21 06:47 Monocytes % (Manual) 7.0 % (0.0-7.3) 04/11/21 06:47 Eosinophils % (Manual) 4.0 % (0.0-4.3) 04/11/21 06:47 Basophils % (Manual) 0 % (0.0-1.8) 04/11/21 06:47 Metamyelocytes % 1.0 % 04/11/21 06:47 Myelocytes % 0 % 04/11/21 06:47 Promyelocytes % 0 % 04/11/21 06:47 Blast Cells % 0 % 04/11/21 06:47 Nucleated RBC % Not Reportable 04/11/21 06:47 Seg Neutrophils # 5.8 K/mm3 (1.8-7.7) 03/31/21 13:30 Seg Neutrophils # Man 8.3 K/mm3 (1.8-7.7) H 04/11/21 06:47 Band Neutrophils # 0.2 K/mm3 04/11/21 06:47 Lymphocytes # (Manual) 1.1 K/mm3 (1.2-5.4) L 04/11/21 06:47 Abs React Lymphs (Man) 0.0 K/mm3 04/11/21 06:47 Monocytes # (Manual) 0.8 K/mm3 (0.0-0.8) 04/11/21 06:47 Eosinophils # (Manual) 0.4 K/mm3 (0.0-0.4) 04/11/21 06:47 Basophils # (Manual) 0.0 K/mm3 (0.0-0.1) 04/11/21 06:47 Metamyelocytes # 0.1 K/mm3 04/11/21 06:47 Myelocytes # 0.0 K/mm3 04/11/21 06:47 Promyelocytes # 0.0 K/mm3 04/11/21 06:47 Blast Cells # 0.0 K/mm3 04/11/21 06:47 WBC Morphology Not Reportable 04/11/21 06:47 Hypersegmented Neuts Not Reportable 04/11/21 06:47 Hyposegmented Neuts Not Reportable 04/11/21 06:47 Hypogranular Neuts Not Reportable 04/11/21 06:47 Smudge Cells Not Reportable 04/11/21 06:47 Toxic Granulation 1+ 04/11/21 06:47 Toxic Vacuolation Not Reportable 04/11/21 06:47 Dohle Bodies Not Reportable 04/11/21 06:47 Pelger-Huet Anomaly Not Reportable 04/11/21 06:47 Mely Rods Not Reportable 04/11/21 06:47 Platelet Estimate Consistent w auto 04/11/21 06:47 Clumped Platelets Not Reportable 04/11/21 06:47 Plt Clumps, EDTA Not Reportable 04/11/21 06:47 Large Platelets Not Reportable 04/11/21 06:47 Giant Platelets Not Reportable 04/11/21 06:47 Platelet Satelliting Not Reportable 04/11/21 06:47 Plt Morphology Comment Not Reportable 04/11/21 06:47 RBC Morphology Not Reportable 04/11/21 06:47 Dimorphic RBCs Not Reportable 04/11/21 06:47 Polychromasia Not Reportable 04/11/21 06:47 Hypochromasia Not Reportable 04/11/21 06:47 Poikilocytosis Not Reportable 04/11/21 06:47 Anisocytosis 1+ 04/11/21 06:47 Microcytosis Not Reportable 04/11/21 06:47 Macrocytosis Not Reportable 04/11/21 06:47 Spherocytes Not Reportable 04/11/21 06:47 Pappenheimer Bodies Not Reportable 04/11/21 06:47 Sickle Cells Not Reportable 04/11/21 06:47 Target Cells Not Reportable 04/11/21 06:47 Tear Drop Cells Not Reportable 04/11/21 06:47 Ovalocytes Not Reportable 04/11/21 06:47 Helmet Cells Not Reportable 04/11/21 06:47 [place] Bodies Not Reportable 04/11/21 06:47 [place] Rings Not Reportable 04/11/21 06:47 Shama Cells Not Reportable 04/11/21 06:47 Bite Cells Not Reportable 04/11/21 06:47 Crenated Cell Not Reportable 04/11/21 06:47 Elliptocytes Not Reportable 04/11/21 06:47 Acanthocytes (Spur) Not Reportable 04/11/21 06:47 Rouleaux Not Reportable 04/11/21 06:47 Hemoglobin C Crystals Not Reportable 04/11/21 06:47 Schistocytes Not Reportable 04/11/21 06:47 Malaria parasites Not Reportable 04/11/21 06:47 Shaheen Bodies Not Reportable 04/11/21 06:47 Hem Pathologist Commnt No 04/11/21 06:47 PT 13.4 Sec. (12.2-14.9) 04/11/21 18:17 INR 0.92 (0.87-1.13) 04/11/21 18:17 APTT 61.1 Sec. (24.2-36.6) H* 04/11/21 18:17 D-Dimer 1359.12 ng/mlDDU (0-234) H 03/17/21 04:40 Heparin Anti-Xa Level 1.03 U.I./ml (0.3-0.7) H 04/12/21 05:11 ABG pH 7.503 (7.320-7.450) H 04/21/21 11:37 POC ABG pCO2 43.0 mmHg (32.0-48.0) 04/21/21 11:37 ABG pCO2 50.9 mm Hg 04/18/21 11:30 POC ABG pO2 92.3 mmHg (83-108) 04/21/21 11:37 ABG pO2 108.9 mm Hg (80.0-90.0) H 04/18/21 11:30 POC ABG HCO3 33.0 04/21/21 11:37 ABG HCO3 36.2 mmol/L (20.0-26.0) H 04/18/21 11:30 ABG O2 Saturation 98.2 (0-100) 04/21/21 11:37 ABG O2 Content 12.1 (0.0-44) 04/18/21 11:30 POC ABG Base Excess 9.0 04/21/21 11:37 ABG Base Excess 11.2 mmol/L (-2.0-3.0) H 04/18/21 11:30 ABG Hemoglobin 10.8 (12.0-17.5) L 04/21/21 11:37 ABG Oxyhemoglobin 97.8 (94-98) 04/21/21 11:37 ABG Carboxyhemoglobin 1.7 % (0.0-5.0) 04/18/21 11:30 ABG Methemoglobin 0.3 (0.0-1.5) 04/21/21 11:37 ABG Sodium 134.2 mmol/L (136.0-145.0) L 03/12/21 21:54 ABG Potassium 4.9 mmol/L (3.40-4.50) H 03/12/21 21:54 ABG Chloride 99.0 mmol/L (98-107) 03/12/21 21:54 ABG Glucose 306 mg/dL (65-95) H 03/12/21 21:54 Oxyhemoglobin 95.9 % (95.0-99.0) 04/18/21 11:30 Carboxyhemoglobin 0.1 (0.5-1.5) L 04/21/21 11:37 FiO2 40 % 04/18/21 11:30 FiO2 % 35.0 04/21/21 11:37 Sodium 136 mmol/L (137-145) L 04/29/21 05:03 Potassium 4.1 mmol/L (3.6-5.0) 04/29/21 05:03 Chloride 104.5 mmol/L (98-107) 04/29/21 05:03 Carbon Dioxide 25 mmol/L (22-30) 04/29/21 05:03 Anion Gap 11 mmol/L 04/29/21 05:03 BUN 8 mg/dL (9-20) L 04/29/21 05:03 Creatinine 0.3 mg/dL (0.8-1.3) L 04/29/21 05:03 Estimated GFR > 60 ml/min 04/29/21 05:03 BUN/Creatinine Ratio 27 % 04/29/21 05:03 Glucose 115 mg/dL (75-100) H 04/29/21 05:03 POC Glucose 112 mg/dL (70-105) H 04/29/21 05:23 Lactic Acid 1.90 mmol/L (0.7-2.0) 03/08/21 23:51 Calcium 9.1 mg/dL (8.4-10.2) 04/29/21 05:03 Phosphorus 3.70 mg/dL (2.5-4.5) 04/25/21 15:04 Magnesium 2.30 mg/dL (1.7-2.3) 04/25/21 15:04 Ferritin 976.4 ng/mL (30.0-300.0) H 03/15/21 04:00 Total Bilirubin 0.20 mg/dL (0.1-1.2) 03/12/21 08:03 AST 10 units/L (5-40) 03/12/21 08:03 ALT 16 units/L (7-56) 03/12/21 08:03 Alkaline Phosphatase 77 units/L (35-129) 03/12/21 08:03 Lactate Dehydrogenase 630 units/L (91-180) H 03/15/21 06:06 C-Reactive Protein 0.40 mg/dL (0.00-1.30) 03/17/21 04:40 NT-Pro-B Natriuret Pep 1053 pg/mL (0-900) H 03/08/21 20:24 Total Protein 6.0 g/dL (6.3-8.2) L 03/12/21 08:03 Albumin 2.9 g/dL (3.9-5) L 03/12/21 08:03 Albumin/Globulin Ratio 0.9 % 03/12/21 08:03 Triglycerides 305 mg/dL (2-149) H 03/22/21 07:26 Procalcitonin 0.19 ng/mL (<0.15) 04/18/21 04:20 Arterial Blood Glucose 306 mg/dL (65-95) H 03/12/21 21:54 Arterial Blood Ionized Calcium 5.0 mg/dL (4.6-5.3) 03/12/21 21:54 Urine Color Yellow (Yellow) 04/14/21 Unknown Urine Turbidity Clear (Clear) 04/14/21 Unknown Urine pH 8.0 (5.0-7.0) H 04/14/21 Unknown Ur Specific [place] 1.009 (1.003-1.030) 04/14/21 Unknown Urine Protein <15 mg/dl mg/dL (Negative) 04/14/21 Unknown Urine Glucose (UA) Neg mg/dL (Negative) 04/14/21 Unknown Urine Ketones Neg mg/dL (Negative) 04/14/21 Unknown Urine Blood Neg (Negative) 04/14/21 Unknown Urine Nitrite Neg (Negative) 04/14/21 Unknown Urine Bilirubin Neg (Negative) 04/14/21 Unknown Urine Urobilinogen 2.0 mg/dL (<2.0) 04/14/21 Unknown Ur Leukocyte Esterase Neg (Negative) 04/14/21 Unknown Urine WBC (Auto) < 1.0 /HPF (0.0-6.0) 04/14/21 Unknown Urine RBC (Auto) < 1.0 /HPF (0.0-6.0) 04/14/21 Unknown Urine Bacteria (Auto) 1+ /HPF (Negative) 03/09/21 04:10 Urine Mucus Few /HPF 03/09/21 04:10 Vancomycin Trough 16.8 ug/mL (5.0-20.0) 04/16/21 14:30 Coronavirus (PCR) Negative (Negative) 04/27/21 08:00 Miscellaneous Test Flexitest 1 03/16/21 13:14 Good/IV: Voiding Method Indwelling Catheter Active Medications - Current Medications Current Medications: Generic Name Dose Route Start Last Admin Trade Name Freq PRN Reason Stop Dose Admin Acetaminophen 650 mg 03/09/21 01:26 04/29/21 02:06 Acetaminophen 325 Mg Tab PO 650 mg Q4H PRN Administration Pain MILD(1-3)/Fever >100.5/RAYO Albuterol 2.5 mg 03/09/21 01:26 03/18/21 21:06 Albuterol 2.5 Mg/3 Ml Nebu IH 2.5 mg Q4HRT PRN Administration Shortness Of Breath Amlodipine Besylate 10 mg 04/27/21 10:00 04/28/21 10:47 Amlodipine 10 Mg Tab FEEDTUBE 10 mg DAILY BLANCA Administration Apixaban 5 mg 04/26/21 22:00 04/28/21 22:15 Apixaban 5 Mg Tab FEEDTUBE 5 mg Q12HR BLANCA Administration Protocol Arformoterol Tartrate 15 mcg 03/11/21 20:00 04/29/21 08:06 Arformoterol 15 Mcg/2 Ml Nebu IH 15 mcg Q12HRT BLANCA Administration Dextrose 0 ml 03/20/21 10:52 Dextrose 10% *Hypoglycemia IV PRN PRN Hypoglycemia Docusate Sodium 100 mg 04/26/21 22:00 04/28/21 22:16 Docusate Sodium 100 Mg/10 Ml Oral Liqd FEEDTUBE 100 mg BID BLANCA Administration Doxazosin Mesylate 1 mg 04/26/21 10:00 04/28/21 22:15 Doxazosin 1 Mg Tab FEEDTUBE 1 mg BID BLANCA Administration Famotidine 20 mg 03/12/21 22:00 04/28/21 22:15 Famotidine 20 Mg Tab FEEDTUBE 20 mg BID BLANCA Administration Glycopyrrolate 2 mg 04/22/21 23:42 04/28/21 19:58 Glycopyrrolate 2 Mg Tab PO 2 mg TID BLANCA Administration Hydralazine HCl 50 mg 04/26/21 14:00 04/29/21 06:00 Hydralazine 25 Mg Tab FEEDTUBE 50 mg Q8HR BLANCA Administration Cefazolin Sodium 3 gm/ Sodium 100 mls @ 100 mls/30 min 04/20/21 14:00 04/29/21 06:00 Chloride IV 05/04/21 06:29 100 mls/30 min Q8HR BLANCA Administration Protocol Insulin Glargine 18 units 04/07/21 22:00 04/28/21 22:16 Insulin Glargine 100 Units/Ml SUB-Q 18 units QHS BLANCA Administration Insulin Human Lispro 0 unit 03/11/21 18:00 04/29/21 06:01 Insulin Lispro 100 Unit/Ml SUB-Q Not Given Q6HR [facility] Protocol Metoprolol Tartrate 12.5 mg 04/26/21 22:00 04/28/21 22:15 Metoprolol Tartrate 25 Mg Tab FEEDTUBE 12.5 mg BID BLANCA Administration Ondansetron HCl 4 mg 03/09/21 01:26 04/28/21 00:23 Ondansetron 4 Mg/2 Ml Inj IV 4 mg Q8H PRN Administration Nausea And Vomiting Oxycodone HCl 5 mg 04/26/21 10:00 04/29/21 02:07 Oxycodone 5 Mg Tab FEEDTUBE 5 mg Q6HR PRN Administration Pain, Moderate (4-6) Phenyleph/Shark Oil/Min Oil/Petrol 1 applic 03/22/21 17:35 04/06/21 04:04 Pe/Mo/Pet,Wh 10 Applic/28 Gm Tube AK 1 applic Q6HR PRN Administration Hemorrhoids Scopolamine 1 each 04/19/21 13:00 04/28/21 10:47 Scopolamine Transdermal Patch 72 Hr TD 1 each Q3D BLANCA Administration Sodium Chloride 10 ml 03/09/21 10:00 04/28/21 22:17 Sodium Chloride 0.9% 10 Ml Flush Syringe IV 10 ml BID BLANCA Administration Sodium Chloride 10 ml 03/09/21 01:26 04/10/21 21:07 Sodium Chloride 0.9% 10 Ml Flush Syringe IV 10 ml PRN PRN Administration LINE FLUSH Nutrition/Malnutrition Assess - Dietary Evaluation Nutrition/Malnutrition Findings: Nutrition Notes Start: 03/09/21 08:49 Freq: Status: Active Protocol: Document 04/28/21 18:05 BRYANNA (Rec: 04/28/21 18:17 BRYANNA [id number]) Nutrition Notes Initial or Follow up Reassessment Current Diagnosis Diabetes,Sepsis,Hypertension, Respiratory Failure Other Pertinent Diagnosis COVID-19, Bilateral Pneumonia DVT of RUE.. Current Diet TF-Glucerna 1.2 Tyson @ 70 ml/hr (since D 04/08). Labs/Tests 04/28: N/A. Pertinent Medications 04/28: Nutritionally unremarkable. Height 5 ft 11 in Weight 118.6 kg [place] Body Weight (kg) 78.18 BMI 36.4 Weight change and time frame 3.8 Kg body weight loss in 1 week reported. Weight Status Obese Subjective/Other Information RD consult for routine F/U on TF tolerance. TF continues as prescribed and well tolerated, according to RN and ADL notes. Percent of energy/protein needs met: Prescribed TF-Glucerna 1.2 Tyson @ 70 ml/hr provides for energy/protein needs (2,016 Kcal/101 g) during LOS, 82% Kcal; 78% AA. Burn Absent Trauma Absent GI Symptoms None Difficulty In Swallowing Food Allergy No Skin Integrity/Comment Unspecified Area of Concern. Current % PO Other Minimum of two criteria No #1 Nutrition Diagnosis Inadequate oral intake Diagnosis Progress(for reassessment Continues documentation) Is patient on ventilator? No Is Patient Ambulatory and/or Out of Bed No REE-([facility]-confined to bed) 5974.376 Calculation Used for Recommendations 70-80% energy needs Additional Notes Energy needs: 3893-0710 kcal/ day Pro needs 1.3g/kg adjBW: 130g/ day Fluid needs 1ml/kcal Nutrition Intervention Nutrition Support: Continue Glucerna 1.2 Tyson @ 70 ml/hr. Flush: 110 ml water Q 4 hr, or as per MD. Kcal 2,016 Protein (gm) 101 Carbohydrates (gm) 192 Fat (gm) 101 Fluid (mL) 1,352 Fiber (gm) 27 % RDI: 82% Kcal; 78% AA. Goal #1 Provide at least 75% of energy /protein needs through Enteral Feeding during LOS. Goal #2 Maintain body weight within +/ -3% of admission body weight during LOS. Follow-Up By: 05/05/21 Additional Comments Continue monitoring TF tolerance and BM.
[2021-04-29] MEDS: GLYCOPYRROLATE 2 MG TAB PO SCH ×3 (09:40→21:12)
[2021-04-29] MEDS: DOXAZOSIN 1 MG TAB FEEDTUBE SCH ×2 (09:40→21:12)
[2021-04-29] MEDS: APIXABAN 5 MG TAB FEEDTUBE SCH ×2 (09:40→21:12)
[2021-04-29] MEDS: DOCUSATE SODIUM 100 MG/10 ML ORAL LIQD FEEDTUBE SCH ×2 (09:40→21:12)
[2021-04-29] MEDS: FAMOTIDINE 20 MG TAB FEEDTUBE SCH ×2 (09:40→21:13)
[2021-04-29] MEDS: amLODIPine 10 MG TAB FEEDTUBE SCH (09:41)
[2021-04-29] MEDS: METOPROLOL TARTRATE 25 MG TAB FEEDTUBE SCH ×2 (09:41→21:12)
[2021-04-29] MEDS: FUROSEMIDE 40 MG/4 ML INJ IV SCH (09:44)
--- NOTE | 2021-04-29 17:56 | Progress Note ---
Assessment and Plan 61-year-old male with past medical history of hypertension and diabetes was brought to the emergency room because of shortness of breath and hypoxia. Patient has been feeling ill for approximately a week. Patient was confused and paramedics were called. Patient's oxygen saturation levels were in the low 70s. 88-90% O2 sat on a NRB mask. Patient does state he has had some cough was unable to give much additional history on arrival. Denies nausea vomiting diarrhea. Patient has not had a COVID test atient hypoxic even on a nonrebreather at 88%. Patient placed on BiPAP and his gait has a better O2 sat and his alertness is improved as well. Patient with by lateral patchy infiltrates in all lobes consistent with COVID-pneumonia. COVID testing is ordered. Umanzor virus test came back positive. Patient given Rocephin ,azithromycin and low-dose Decadron since he is diabetic. Patient to be admitted to the hospital service. Patient also given REMDESIVIR. Later decadron switched to I/V solumedrol. Patients inflammatory markers, D dimer, ferritin CRP are elevated. patient started on anticoagulation. Patient intubated and placed on mechanical ventilation. Patient has tracheostomy, eventually weaned from the ventilator, Patient presently in IMCU. Patient Obese, Awake Patient is on T tube, FIO2 28%. O2 saturation running 98%. No acute respiratory distress. Patient running low grade temp. Patient has no leukocytosis. Blood pressure 130/72, Pulse 95, Respirations 22. Chest xray done 04/17/21 reported Mild improvement in pulmonary opacities. Repeating chest xray and ABGs tomorrow. Patient is on Apixaban, Brovanna aerosol treatments, Famotidine,Glycopyrrolate and Cefazolin I spent critical care time of 32 minutes, review the chart, examine the patient, review lab results, talking to respiratory and nursing staff and work out plan of treatment in this critically ill Covid 19 positive patient. - Patient Problems (1) Acute respiratory failure Current Visit: Yes Status: Acute Plan to address problem: Patient is on T tube, FIO2 28%. Brovanna aerosol treatments. Continue Apixaban Continue famotidine. (2) Diabetes Current Visit: Yes Status: Acute Plan to address problem: Management as per primary care. (3) Hypertension Current Visit: Yes Status: Acute Plan to address problem: Management as per primary care. (4) Coronavirus infection Current Visit: Yes Status: Acute Plan to address problem: Patient was on I/V solumedrol, REMDESIVIR,Apixaban, ceftriaxone and zithromax. Management as per infectious disease specialists. Subjective Date of service: 04/29/21 Principal diagnosis: COVID-19 infection; DM II; Bilateral pneumonia; Obesity; HTN Interval history: 61-year-old male with past medical history of hypertension and diabetes was brought to the emergency room because of shortness of breath and hypoxia. Patient has been feeling ill for approximately a week. Patient was confused and paramedics were called. Patient's oxygen saturation levels were in the low 70s. 88-90% O2 sat on a NRB mask. Patient does state he has had some cough was unable to give much additional history on arrival. Denies nausea vomiting diarrhea. Patient has not had a COVID test Patient hypoxic even on a nonrebreather at 88%. Patient placed on BiPAP and his gait has a better O2 sat and his alertness is improved as well. Patient with by lateral patchy infiltrates in all lobes consistent with COVID-pneumonia. COVID testing is ordered. Umanzor virus test came back positive. Patient given Roceph in ,azithromycin and low-dose Decadron since he is diabetic. Patient to be admitted to the hospital service. Patient also given REMDESIVIR. Later decadron switched to I/V solumedrol. Patients inflammatory markers, D dimer, ferritin CRP are elevated. patient started on anticoagulation. Patient intubated and placed on mechanical ventilation. Patient has tracheostomy, eventually weaned from the ventilator, Patient presently in IMCU. Patient Obese, Awake Patient is on T tube, FIO2 28%. O2 saturation running 98%. No acute respiratory distress. Patient running low grade temp. Patient has no leukocytosis. Blood pressure 130/72, Pulse 95, Respirations 22. Chest xray done 04/17/21 reported Mild improvement in pulmonary opacities. Repeating chest xray and ABGs tomorrow. Patient is on Apixaban, Brovanna aerosol treatments, Famotidine,Glycopyrrolate and Cefazolin Objective Vital Signs - 12hr 04/29/21 04/29/21 04/29/21 06:00 07:00 08:00 Temperature 98.3 F Pulse Rate 85 90 89 Pulse Rate [ Bilateral Throughout] Pulse Rate [ 82 From Monitor] Respiratory 21 24 20 Rate Respiratory Rate [Bilateral Throughout] Blood Pressure 130/81 133/75 136/83 O2 Sat by Pulse 98 98 100 Oximetry O2 Sat by Pulse Oximetry [ Assessment] 04/29/21 04/29/21 04/29/21 08:07 08:12 08:13 Temperature Pulse Rate Pulse Rate [ 93 H Bilateral Throughout] Pulse Rate [ From Monitor] Respiratory Rate Respiratory 28 H Rate [Bilateral Throughout] Blood Pressure O2 Sat by Pulse 99 Oximetry O2 Sat by Pulse 99 Oximetry [ Assessment] 04/29/21 04/29/21 04/29/21 09:00 09:40 09:41 Temperature Pulse Rate 90 91 H 90 Pulse Rate [ Bilateral Throughout] Pulse Rate [ From Monitor] Respiratory 27 H Rate Respiratory Rate [Bilateral Throughout] Blood Pressure 144/86 144/86 144/86 O2 Sat by Pulse 94 Oximetry O2 Sat by Pulse Oximetry [ Assessment] 04/29/21 04/29/21 04/29/21 10:00 11:00 12:00 Temperature 98.4 F Pulse Rate 91 H 88 91 H Pulse Rate [ Bilateral Throughout] Pulse Rate [ 84 From Monitor] Respiratory 29 H 30 H 27 H Rate Respiratory Rate [Bilateral Throughout] Blood Pressure 142/87 142/85 143/86 O2 Sat by Pulse 100 90 89 Oximetry O2 Sat by Pulse Oximetry [ Assessment] 04/29/21 04/29/21 04/29/21 13:00 14:00 15:00 Temperature Pulse Rate 95 H 98 H 99 H Pulse Rate [ Bilateral Throughout] Pulse Rate [ From Monitor] Respiratory 30 H 29 H 31 H Rate Respiratory Rate [Bilateral Throughout] Blood Pressure 137/83 140/84 140/88 O2 Sat by Pulse 96 90 93 Oximetry O2 Sat by Pulse Oximetry [ Assessment] 04/29/21 04/29/21 04/29/21 15:05 15:49 16:00 Temperature 98.4 F Pulse Rate 97 H 97 H Pulse Rate [ Bilateral Throughout] Pulse Rate [ 80 From Monitor] Respiratory 27 H Rate Respiratory Rate [Bilateral Throughout] Blood Pressure 140/88 142/85 O2 Sat by Pulse 90 Oximetry O2 Sat by Pulse 99 Oximetry [ Assessment] Constitutional: no acute distress, alert, other (elderly obese male with mildly increased respiratory effort at rest) Eyes: non-icteric ENT: oropharynx moist, other (+ midline tracheostomy) Neck: supple, no lymphadenopathy, lymphadenopathy, no JVD, other (large circumference) Effort: mildly labored Ascultation: Bilateral: diminished breath sounds, rales, rhonchi Percussion: Bilateral: not dull Cardiovascular: regular rate and rhythm, other (tachycardia, S1,S2) Gastrointestinal: normoactive bowel sounds, soft, non-tender, non-distended (protuberant) Integumentary: normal Extremities: no cyanosis, pulses normal, no ischemia or petechiae, edema (upper extremities), other Neurologic: non-focal exam (grossly), pupils equal and round, CN II-XII normal, other (follows simple prompts) Psychiatric: mood appropriate, affect normal CBC and BMP: 04/29/21 05:03 04/29/21 05:03 ABG, PT/INR, D-dimer: ABG ABG pH 7.503 (7.320-7.450) H 04/21/21 11:37 POC ABG pCO2 43.0 mmHg (32.0-48.0) 04/21/21 11:37 ABG pCO2 50.9 mm Hg 04/18/21 11:30 POC ABG pO2 92.3 mmHg (83-108) 04/21/21 11:37 ABG pO2 108.9 mm Hg (80.0-90.0) H 04/18/21 11:30 POC ABG HCO3 33.0 04/21/21 11:37 ABG O2 Saturation 98.2 (0-100) 04/21/21 11:37 PT/INR, D-dimer PT 13.4 Sec. (12.2-14.9) 04/11/21 18:17 INR 0.92 (0.87-1.13) 04/11/21 18:17 D-Dimer 1359.12 ng/mlDDU (0-234) H 03/17/21 04:40 Abnormal lab findings: Abnormal Labs 03/08/21 03/08/21 03/08/21 20:24 20:24 20:24 WBC 22.6 H RBC 5.44 H Hgb 15.7 H Hct 49.2 H MCV MCHC RDW Plt Count Lymph % (Auto) [place] % (Auto) Lymph # (Auto) [place] # (Auto) Seg Neutrophils % Seg Neuts % (Manual) 83.0 H Lymphocytes % (Manual) 9.0 L Monocytes % (Manual) 8.0 H Nucleated RBC % Seg Neutrophils # Seg Neutrophils # Man 18.8 H Lymphocytes # (Manual) Monocytes # (Manual) 1.8 H PT 16.1 H INR 1.17 H APTT D-Dimer > 99697 H Heparin Anti-Xa Level ABG pH POC ABG pCO2 POC ABG pO2 ABG pO2 ABG HCO3 ABG O2 Saturation ABG Base Excess ABG Hemoglobin ABG Oxyhemoglobin ABG Sodium ABG Potassium ABG Glucose Oxyhemoglobin Carboxyhemoglobin Sodium 136 L Potassium Chloride 93.9 L Carbon Dioxide BUN 29 H Creatinine Glucose 208 H POC Glucose Lactic Acid Calcium Phosphorus Magnesium Ferritin Lactate Dehydrogenase 624 H C-Reactive Protein 18.00 H NT-Pro-B Natriuret Pep 1053 H Total Protein Albumin Triglycerides Arterial Blood Glucose Urine pH Ur Specific [place] Coronavirus (PCR) 03/08/21 03/08/21 03/09/21 20:24 20:24 04:10 WBC RBC Hgb Hct MCV MCHC RDW Plt Count Lymph % (Auto) [place] % (Auto) Lymph # (Auto) [place] # (Auto) Seg Neutrophils % Seg Neuts % (Manual) Lymphocytes % (Manual) Monocytes % (Manual) Nucleated RBC % Seg Neutrophils # Seg Neutrophils # Man Lymphocytes # (Manual) Monocytes # (Manual) PT INR APTT D-Dimer Heparin Anti-Xa Level ABG pH POC ABG pCO2 POC ABG pO2 ABG pO2 ABG HCO3 ABG O2 Saturation ABG Base Excess ABG Hemoglobin ABG Oxyhemoglobin ABG Sodium ABG Potassium ABG Glucose Oxyhemoglobin Carboxyhemoglobin Sodium Potassium Chloride Carbon Dioxide BUN Creatinine Glucose POC Glucose Lactic Acid 2.10 H* Calcium Phosphorus Magnesium Ferritin 877.5 H Lactate Dehydrogenase C-Reactive Protein NT-Pro-B Natriuret Pep Total Protein Albumin Triglycerides Arterial Blood Glucose Urine pH Ur Specific [place] 1.041 H Coronavirus (PCR) 03/09/21 03/09/21 03/09/21 07:46 08:00 13:01 WBC RBC Hgb Hct MCV MCHC RDW Plt Count Lymph % (Auto) [place] % (Auto) Lymph # (Auto) [place] # (Auto) Seg Neutrophils % Seg Neuts % (Manual) Lymphocytes % (Manual) Monocytes % (Manual) Nucleated RBC % Seg Neutrophils # Seg Neutrophils # Man Lymphocytes # (Manual) Monocytes # (Manual) PT INR APTT D-Dimer Heparin Anti-Xa Level ABG pH POC ABG pCO2 POC ABG pO2 ABG pO2 ABG HCO3 ABG O2 Saturation ABG Base Excess ABG Hemoglobin ABG Oxyhemoglobin ABG Sodium ABG Potassium ABG Glucose Oxyhemoglobin Carboxyhemoglobin Sodium Potassium Chloride Carbon Dioxide BUN Creatinine Glucose POC Glucose 191 H 182 H Lactic Acid Calcium Phosphorus Magnesium Ferritin Lactate Dehydrogenase C-Reactive Protein NT-Pro-B Natriuret Pep Total Protein Albumin Triglycerides Arterial Blood Glucose Urine pH Ur Specific [place] Coronavirus (PCR) Positive A 03/09/21 03/09/21 03/09/21 15:19 17:48 18:10 WBC RBC Hgb Hct MCV MCHC RDW Plt Count Lymph % (Auto) [place] % (Auto) Lymph # (Auto) [place] # (Auto) Seg Neutrophils % Seg Neuts % (Manual) Lymphocytes % (Manual) Monocytes % (Manual) Nucleated RBC % Seg Neutrophils # Seg Neutrophils # Man Lymphocytes # (Manual) Monocytes # (Manual) PT INR APTT D-Dimer Heparin Anti-Xa Level ABG pH POC ABG pCO2 POC ABG pO2 ABG pO2 47.3 L ABG HCO3 26.3 H ABG O2 Saturation 83.7 L ABG Base Excess ABG Hemoglobin ABG Oxyhemoglobin ABG Sodium ABG Potassium ABG Glucose Oxyhemoglobin 82.1 L Carboxyhemoglobin Sodium Potassium Chloride Carbon Dioxide BUN 29 H Creatinine Glucose 214 H POC Glucose 194 H Lactic Acid Calcium Phosphorus Magnesium Ferritin Lactate Dehydrogenase C-Reactive Protein NT-Pro-B Natriuret Pep Total Protein Albumin 3.4 L Triglycerides Arterial Blood Glucose Urine pH Ur Specific [place] Coronavirus (PCR) 03/09/21 03/10/21 03/10/21 20:40 04:29 04:29 WBC 20.6 H RBC 5.07 H Hgb Hct 46.2 H MCV MCHC RDW Plt Count Lymph % (Auto) [place] % (Auto) Lymph # (Auto) [place] # (Auto) Seg Neutrophils % Seg Neuts % (Manual) 94.0 H Lymphocytes % (Manual) 1.0 L Monocytes % (Manual) Nucleated RBC % 3.0 H Seg Neutrophils # Seg Neutrophils # Man 19.4 H Lymphocytes # (Manual) 0.2 L Monocytes # (Manual) 1.0 H PT INR APTT D-Dimer Heparin Anti-Xa Level ABG pH POC ABG pCO2 POC ABG pO2 ABG pO2 ABG HCO3 ABG O2 Saturation ABG Base Excess ABG Hemoglobin ABG Oxyhemoglobin ABG Sodium ABG Potassium ABG Glucose Oxyhemoglobin Carboxyhemoglobin Sodium Potassium Chloride Carbon Dioxide BUN 29 H Creatinine Glucose 188 H POC Glucose 176 H Lactic Acid Calcium Phosphorus Magnesium Ferritin Lactate Dehydrogenase C-Reactive Protein NT-Pro-B Natriuret Pep Total Protein Albumin 3.3 L Triglycerides Arterial Blood Glucose Urine pH Ur Specific [place] Coronavirus (PCR) 03/10/21 03/10/21 03/10/21 05:22 10:27 15:25 WBC RBC Hgb Hct MCV MCHC RDW Plt Count Lymph % (Auto) [place] % (Auto) Lymph # (Auto) [place] # (Auto) Seg Neutrophils % Seg Neuts % (Manual) Lymphocytes % (Manual) Monocytes % (Manual) Nucleated RBC % Seg Neutrophils # Seg Neutrophils # Man Lymphocytes # (Manual) Monocytes # (Manual) PT INR APTT D-Dimer Heparin Anti-Xa Level ABG pH 7.488 H 7.488 H POC ABG pCO2 POC ABG pO2 ABG pO2 47.7 L 50.5 L ABG HCO3 ABG O2 Saturation 86.2 L 87.9 L ABG Base Excess ABG Hemoglobin ABG Oxyhemoglobin ABG Sodium ABG Potassium ABG Glucose Oxyhemoglobin 84.6 L 86.2 L Carboxyhemoglobin Sodium Potassium Chloride Carbon Dioxide BUN Creatinine Glucose POC Glucose 155 H Lactic Acid Calcium Phosphorus Magnesium Ferritin Lactate Dehydrogenase C-Reactive Protein NT-Pro-B Natriuret Pep Total Protein Albumin Triglycerides Arterial Blood Glucose Urine pH Ur Specific [place] Coronavirus (PCR) 03/10/21 03/10/21 03/11/21 18:10 18:55 00:07 WBC RBC Hgb Hct MCV MCHC RDW Plt Count Lymph % (Auto) [place] % (Auto) Lymph # (Auto) [place] # (Auto) Seg Neutrophils % Seg Neuts % (Manual) Lymphocytes % (Manual) Monocytes % (Manual) Nucleated RBC % Seg Neutrophils # Seg Neutrophils # Man Lymphocytes # (Manual) Monocytes # (Manual) PT INR APTT D-Dimer Heparin Anti-Xa Level ABG pH 7.343 L POC ABG pCO2 POC ABG pO2 ABG pO2 60.4 L ABG HCO3 27.9 H ABG O2 Saturation 88.7 L ABG Base Excess ABG Hemoglobin ABG Oxyhemoglobin ABG Sodium ABG Potassium ABG Glucose Oxyhemoglobin 86.9 L Carboxyhemoglobin Sodium Potassium Chloride Carbon Dioxide BUN Creatinine Glucose POC Glucose 187 H 139 H Lactic Acid Calcium Phosphorus Magnesium Ferritin Lactate Dehydrogenase C-Reactive Protein NT-Pro-B Natriuret Pep Total Protein Albumin Triglycerides Arterial Blood Glucose Urine pH Ur Specific [place] Coronavirus (PCR) 03/11/21 03/11/21 03/11/21 02:09 04:28 08:06 WBC RBC Hgb Hct MCV MCHC RDW Plt Count Lymph % (Auto) [place] % (Auto) Lymph # (Auto) [place] # (Auto) Seg Neutrophils % Seg Neuts % (Manual) Lymphocytes % (Manual) Monocytes % (Manual) Nucleated RBC % Seg Neutrophils # Seg Neutrophils # Man Lymphocytes # (Manual) Monocytes # (Manual) PT INR APTT D-Dimer Heparin Anti-Xa Level ABG pH 7.277 L POC ABG pCO2 55.9 H POC ABG pO2 54.4 L ABG pO2 ABG HCO3 ABG O2 Saturation ABG Base Excess ABG Hemoglobin ABG Oxyhemoglobin 83.0 L ABG Sodium ABG Potassium 4.8 H ABG Glucose 180 H Oxyhemoglobin Carboxyhemoglobin Sodium Potassium Chloride Carbon Dioxide BUN 38 H Creatinine Glucose 249 H POC Glucose 278 H Lactic Acid Calcium Phosphorus Magnesium Ferritin Lactate Dehydrogenase C-Reactive Protein NT-Pro-B Natriuret Pep Total Protein Albumin 3.2 L Triglycerides Arterial Blood Glucose 180 H Urine pH Ur Specific [place] Coronavirus (PCR) 03/11/21 03/11/21 03/11/21 11:29 15:06 15:48 WBC RBC Hgb Hct MCV MCHC RDW Plt Count Lymph % (Auto) [place] % (Auto) Lymph # (Auto) [place] # (Auto) Seg Neutrophils % Seg Neuts % (Manual) Lymphocytes % (Manual) Monocytes % (Manual) Nucleated RBC % Seg Neutrophils # Seg Neutrophils # Man Lymphocytes # (Manual) Monocytes # (Manual) PT INR APTT D-Dimer Heparin Anti-Xa Level ABG pH 7.260 L POC ABG pCO2 POC ABG pO2 ABG pO2 53.5 L ABG HCO3 29.5 H ABG O2 Saturation 84.0 L ABG Base Excess ABG Hemoglobin ABG Oxyhemoglobin ABG Sodium ABG Potassium ABG Glucose Oxyhemoglobin 82.3 L Carboxyhemoglobin Sodium Potassium Chloride Carbon Dioxide BUN Creatinine Glucose POC Glucose 288 H 295 H Lactic Acid Calcium Phosphorus Magnesium Ferritin Lactate Dehydrogenase C-Reactive Protein NT-Pro-B Natriuret Pep Total Protein Albumin Triglycerides Arterial Blood Glucose Urine pH Ur Specific [place] Coronavirus (PCR) 03/12/21 03/12/21 03/12/21 00:01 05:24 08:03 WBC RBC Hgb Hct MCV MCHC RDW Plt Count Lymph % (Auto) [place] % (Auto) Lymph # (Auto) [place] # (Auto) Seg Neutrophils % Seg Neuts % (Manual) Lymphocytes % (Manual) Monocytes % (Manual) Nucleated RBC % Seg Neutrophils # Seg Neutrophils # Man Lymphocytes # (Manual) Monocytes # (Manual) PT INR APTT D-Dimer Heparin Anti-Xa Level ABG pH POC ABG pCO2 POC ABG pO2 ABG pO2 ABG HCO3 ABG O2 Saturation ABG Base Excess ABG Hemoglobin ABG Oxyhemoglobin ABG Sodium ABG Potassium ABG Glucose Oxyhemoglobin Carboxyhemoglobin Sodium 135 L Potassium Chloride Carbon Dioxide BUN 48 H Creatinine Glucose 358 H POC Glucose 304 H 310 H Lactic Acid Calcium Phosphorus Magnesium Ferritin Lactate Dehydrogenase C-Reactive Protein NT-Pro-B Natriuret Pep Total Protein 6.0 L Albumin 2.9 L Triglycerides Arterial Blood Glucose Urine pH Ur Specific [place] Coronavirus (PCR) 03/12/21 03/12/21 03/12/21 08:03 10:43 11:31 WBC 14.6 H RBC Hgb Hct MCV MCHC RDW Plt Count Lymph % (Auto) [place] % (Auto) Lymph # (Auto) [place] # (Auto) Seg Neutrophils % Seg Neuts % (Manual) Lymphocytes % (Manual) Monocytes % (Manual) Nucleated RBC % Seg Neutrophils # Seg Neutrophils # Man Lymphocytes # (Manual) Monocytes # (Manual) PT INR APTT D-Dimer Heparin Anti-Xa Level ABG pH 7.248 L POC ABG pCO2 POC ABG pO2 ABG pO2 73.7 L ABG HCO3 32.0 H ABG O2 Saturation 93.9 L ABG Base Excess ABG Hemoglobin ABG Oxyhemoglobin ABG Sodium ABG Potassium ABG Glucose Oxyhemoglobin 92.1 L Carboxyhemoglobin Sodium Potassium Chloride Carbon Dioxide BUN Creatinine Glucose POC Glucose 359 H Lactic Acid Calcium Phosphorus Magnesium Ferritin Lactate Dehydrogenase C-Reactive Protein NT-Pro-B Natriuret Pep Total Protein Albumin Triglycerides Arterial Blood Glucose Urine pH Ur Specific [place] Coronavirus (PCR) 03/12/21 03/12/21 03/13/21 17:20 21:54 00:02 WBC RBC Hgb Hct MCV MCHC RDW Plt Count Lymph % (Auto) [place] % (Auto) Lymph # (Auto) [place] # (Auto) Seg Neutrophils % Seg Neuts % (Manual) Lymphocytes % (Manual) Monocytes % (Manual) Nucleated RBC % Seg Neutrophils # Seg Neutrophils # Man Lymphocytes # (Manual) Monocytes # (Manual) PT INR APTT D-Dimer Heparin Anti-Xa Level ABG pH 7.238 L POC ABG pCO2 71.9 H POC ABG pO2 53.6 L ABG pO2 ABG HCO3 ABG O2 Saturation ABG Base Excess ABG Hemoglobin ABG Oxyhemoglobin 84.8 L ABG Sodium 134.2 L ABG Potassium 4.9 H ABG Glucose 306 H Oxyhemoglobin Carboxyhemoglobin Sodium Potassium Chloride Carbon Dioxide BUN Creatinine Glucose POC Glucose 374 H 308 H Lactic Acid Calcium Phosphorus Magnesium Ferritin Lactate Dehydrogenase C-Reactive Protein NT-Pro-B Natriuret Pep Total Protein Albumin Triglycerides Arterial Blood Glucose 306 H Urine pH Ur Specific [place] Coronavirus (PCR) 03/13/21 03/13/21 03/13/21 05:22 05:44 05:44 WBC 13.9 H RBC Hgb Hct MCV MCHC RDW Plt Count Lymph % (Auto) [place] % (Auto) Lymph # (Auto) [place] # (Auto) Seg Neutrophils % Seg Neuts % (Manual) Lymphocytes % (Manual) Monocytes % (Manual) Nucleated RBC % Seg Neutrophils # Seg Neutrophils # Man Lymphocytes # (Manual) Monocytes # (Manual) PT INR APTT D-Dimer 3567.97 H Heparin Anti-Xa Level ABG pH POC ABG pCO2 POC ABG pO2 ABG pO2 ABG HCO3 ABG O2 Saturation ABG Base Excess ABG Hemoglobin ABG Oxyhemoglobin ABG Sodium ABG Potassium ABG Glucose Oxyhemoglobin Carboxyhemoglobin Sodium Potassium Chloride Carbon Dioxide BUN Creatinine Glucose POC Glucose 316 H Lactic Acid Calcium Phosphorus Magnesium Ferritin Lactate Dehydrogenase C-Reactive Protein NT-Pro-B Natriuret Pep Total Protein Albumin Triglycerides Arterial Blood Glucose Urine pH Ur Specific [place] Coronavirus (PCR) 03/13/21 03/13/21 03/13/21 05:44 05:44 11:15 WBC RBC Hgb Hct MCV MCHC RDW Plt Count Lymph % (Auto) [place] % (Auto) Lymph # (Auto) [place] # (Auto) Seg Neutrophils % Seg Neuts % (Manual) Lymphocytes % (Manual) Monocytes % (Manual) Nucleated RBC % Seg Neutrophils # Seg Neutrophils # Man Lymphocytes # (Manual) Monocytes # (Manual) PT INR APTT D-Dimer Heparin Anti-Xa Level ABG pH 7.310 L POC ABG pCO2 POC ABG pO2 ABG pO2 52.3 L ABG HCO3 34.1 H ABG O2 Saturation 86.8 L ABG Base Excess 5.5 H ABG Hemoglobin 13.8 L ABG Oxyhemoglobin ABG Sodium ABG Potassium ABG Glucose Oxyhemoglobin 85.1 L Carboxyhemoglobin Sodium Potassium Chloride Carbon Dioxide BUN Creatinine Glucose POC Glucose Lactic Acid Calcium Phosphorus Magnesium Ferritin 858.7 H Lactate Dehydrogenase 348 H C-Reactive Protein 2.80 H NT-Pro-B Natriuret Pep Total Protein Albumin Triglycerides Arterial Blood Glucose Urine pH Ur Specific [place] Coronavirus (PCR) 03/13/21 03/13/21 03/13/21 11:21 15:47 19:23 WBC RBC Hgb Hct MCV MCHC RDW Plt Count Lymph % (Auto) [place] % (Auto) Lymph # (Auto) [place] # (Auto) Seg Neutrophils % Seg Neuts % (Manual) Lymphocytes % (Manual) Monocytes % (Manual) Nucleated RBC % Seg Neutrophils # Seg Neutrophils # Man Lymphocytes # (Manual) Monocytes # (Manual) PT INR APTT D-Dimer Heparin Anti-Xa Level ABG pH POC ABG pCO2 POC ABG pO2 ABG pO2 ABG HCO3 ABG O2 Saturation ABG Base Excess ABG Hemoglobin ABG Oxyhemoglobin ABG Sodium ABG Potassium ABG Glucose Oxyhemoglobin Carboxyhemoglobin Sodium 136 L Potassium 5.9 H Chloride Carbon Dioxide BUN 50 H Creatinine Glucose 397 H POC Glucose 322 H 317 H Lactic Acid Calcium Phosphorus Magnesium Ferritin Lactate Dehydrogenase C-Reactive Protein NT-Pro-B Natriuret Pep Total Protein Albumin Triglycerides Arterial Blood Glucose Urine pH Ur Specific [place] Coronavirus (PCR) 03/13/21 03/14/21 03/14/21 23:46 05:32 05:50 WBC 11.6 H RBC Hgb Hct MCV MCHC RDW Plt Count Lymph % (Auto) [place] % (Auto) Lymph # (Auto) [place] # (Auto) Seg Neutrophils % Seg Neuts % (Manual) Lymphocytes % (Manual) Monocytes % (Manual) Nucleated RBC % Seg Neutrophils # Seg Neutrophils # Man Lymphocytes # (Manual) Monocytes # (Manual) PT INR APTT D-Dimer Heparin Anti-Xa Level ABG pH POC ABG pCO2 POC ABG pO2 ABG pO2 ABG HCO3 ABG O2 Saturation ABG Base Excess ABG Hemoglobin ABG Oxyhemoglobin ABG Sodium ABG Potassium ABG Glucose Oxyhemoglobin Carboxyhemoglobin Sodium Potassium Chloride Carbon Dioxide BUN Creatinine Glucose POC Glucose 332 H 316 H Lactic Acid Calcium Phosphorus Magnesium Ferritin Lactate Dehydrogenase C-Reactive Protein NT-Pro-B Natriuret Pep Total Protein Albumin Triglycerides Arterial Blood Glucose Urine pH Ur Specific [place] Coronavirus (PCR) 03/14/21 03/14/21 03/14/21 05:50 11:33 16:53 WBC RBC Hgb Hct MCV MCHC RDW Plt Count Lymph % (Auto) [place] % (Auto) Lymph # (Auto) [place] # (Auto) Seg Neutrophils % Seg Neuts % (Manual) Lymphocytes % (Manual) Monocytes % (Manual) Nucleated RBC % Seg Neutrophils # Seg Neutrophils # Man Lymphocytes # (Manual) Monocytes # (Manual) PT INR APTT D-Dimer Heparin Anti-Xa Level ABG pH POC ABG pCO2 POC ABG pO2 ABG pO2 ABG HCO3 ABG O2 Saturation ABG Base Excess ABG Hemoglobin ABG Oxyhemoglobin ABG Sodium ABG Potassium ABG Glucose Oxyhemoglobin Carboxyhemoglobin Sodium Potassium 5.9 H Chloride Carbon Dioxide 31 H BUN 48 H Creatinine Glucose 380 H POC Glucose 315 H 235 H Lactic Acid Calcium Phosphorus Magnesium 3.40 H Ferritin Lactate Dehydrogenase C-Reactive Protein NT-Pro-B Natriuret Pep Total Protein Albumin Triglycerides Arterial Blood Glucose Urine pH Ur Specific [place] Coronavirus (PCR) 03/14/21 03/14/21 03/15/21 18:34 23:27 01:22 WBC RBC Hgb Hct 46.3 H MCV MCHC RDW Plt Count Lymph % (Auto) [place] % (Auto) Lymph # (Auto) [place] # (Auto) Seg Neutrophils % Seg Neuts % (Manual) Lymphocytes % (Manual) Monocytes % (Manual) Nucleated RBC % Seg Neutrophils # Seg Neutrophils # Man Lymphocytes # (Manual) Monocytes # (Manual) PT INR APTT D-Dimer Heparin Anti-Xa Level ABG pH POC ABG pCO2 POC ABG pO2 ABG pO2 ABG HCO3 ABG O2 Saturation ABG Base Excess ABG Hemoglobin ABG Oxyhemoglobin ABG Sodium ABG Potassium ABG Glucose Oxyhemoglobin Carboxyhemoglobin Sodium 146 H Potassium Chloride Carbon Dioxide 34 H BUN 49 H Creatinine Glucose 285 H POC Glucose 203 H Lactic Acid Calcium Phosphorus Magnesium Ferritin Lactate Dehydrogenase C-Reactive Protein NT-Pro-B Natriuret Pep Total Protein Albumin Triglycerides Arterial Blood Glucose Urine pH Ur Specific [place] Coronavirus (PCR) 03/15/21 03/15/21 03/15/21 04:00 06:06 06:06 WBC RBC Hgb Hct MCV MCHC RDW Plt Count Lymph % (Auto) [place] % (Auto) Lymph # (Auto) [place] # (Auto) Seg Neutrophils % Seg Neuts % (Manual) Lymphocytes % (Manual) Monocytes % (Manual) Nucleated RBC % Seg Neutrophils # Seg Neutrophils # Man Lymphocytes # (Manual) Monocytes # (Manual) PT INR APTT D-Dimer 1781.79 H Heparin Anti-Xa Level ABG pH POC ABG pCO2 POC ABG pO2 ABG pO2 ABG HCO3 ABG O2 Saturation ABG Base Excess ABG Hemoglobin ABG Oxyhemoglobin ABG Sodium ABG Potassium ABG Glucose Oxyhemoglobin Carboxyhemoglobin Sodium 148 H Potassium 5.7 H D Chloride 108.0 H Carbon Dioxide 31 H BUN 46 H Creatinine Glucose 139 H POC Glucose Lactic Acid Calcium Phosphorus 4.80 H D Magnesium 3.00 H Ferritin 976.4 H Lactate Dehydrogenase 630 H C-Reactive Protein NT-Pro-B Natriuret Pep Total Protein Albumin Triglycerides Arterial Blood Glucose Urine pH Ur Specific [place] Coronavirus (PCR) 03/15/21 03/15/21 03/15/21 11:56 14:05 17:09 WBC RBC Hgb Hct MCV MCHC RDW Plt Count Lymph % (Auto) [place] % (Auto) Lymph # (Auto) [place] # (Auto) Seg Neutrophils % Seg Neuts % (Manual) Lymphocytes % (Manual) Monocytes % (Manual) Nucleated RBC % Seg Neutrophils # Seg Neutrophils # Man Lymphocytes # (Manual) Monocytes # (Manual) PT INR APTT D-Dimer Heparin Anti-Xa Level ABG pH POC ABG pCO2 POC ABG pO2 ABG pO2 52.1 L ABG HCO3 36.6 H ABG O2 Saturation 87.6 L ABG Base Excess 9.5 H ABG Hemoglobin ABG Oxyhemoglobin ABG Sodium ABG Potassium ABG Glucose Oxyhemoglobin 85.7 L Carboxyhemoglobin Sodium Potassium Chloride Carbon Dioxide BUN Creatinine Glucose POC Glucose 219 H 263 H Lactic Acid Calcium Phosphorus Magnesium Ferritin Lactate Dehydrogenase C-Reactive Protein NT-Pro-B Natriuret Pep Total Protein Albumin Triglycerides Arterial Blood Glucose Urine pH Ur Specific [place] Coronavirus (PCR) 03/16/21 03/16/21 03/16/21 00:32 04:11 04:11 WBC 11.9 H RBC Hgb Hct MCV MCHC 30 L RDW Plt Count Lymph % (Auto) [place] % (Auto) Lymph # (Auto) [place] # (Auto) Seg Neutrophils % Seg Neuts % (Manual) Lymphocytes % (Manual) Monocytes % (Manual) Nucleated RBC % Seg Neutrophils # Seg Neutrophils # Man Lymphocytes # (Manual) Monocytes # (Manual) PT INR APTT D-Dimer Heparin Anti-Xa Level ABG pH POC ABG pCO2 POC ABG pO2 ABG pO2 ABG HCO3 ABG O2 Saturation ABG Base Excess ABG Hemoglobin ABG Oxyhemoglobin ABG Sodium ABG Potassium ABG Glucose Oxyhemoglobin Carboxyhemoglobin Sodium 151 H Potassium Chloride Carbon Dioxide 35 H BUN 48 H Creatinine Glucose 152 H POC Glucose 165 H Lactic Acid Calcium Phosphorus Magnesium Ferritin Lactate Dehydrogenase C-Reactive Protein NT-Pro-B Natriuret Pep Total Protein Albumin Triglycerides Arterial Blood Glucose Urine pH Ur Specific [place] Coronavirus (PCR) 03/16/21 03/16/21 03/16/21 04:11 05:26 11:35 WBC RBC Hgb Hct MCV MCHC RDW Plt Count Lymph % (Auto) [place] % (Auto) Lymph # (Auto) [place] # (Auto) Seg Neutrophils % Seg Neuts % (Manual) Lymphocytes % (Manual) Monocytes % (Manual) Nucleated RBC % Seg Neutrophils # Seg Neutrophils # Man Lymphocytes # (Manual) Monocytes # (Manual) PT INR APTT D-Dimer Heparin Anti-Xa Level ABG pH POC ABG pCO2 POC ABG pO2 ABG pO2 ABG HCO3 ABG O2 Saturation ABG Base Excess ABG Hemoglobin ABG Oxyhemoglobin ABG Sodium ABG Potassium ABG Glucose Oxyhemoglobin Carboxyhemoglobin Sodium Potassium Chloride Carbon Dioxide BUN Creatinine Glucose POC Glucose 162 H 187 H Lactic Acid Calcium Phosphorus Magnesium Ferritin Lactate Dehydrogenase C-Reactive Protein NT-Pro-B Natriuret Pep Total Protein Albumin Triglycerides 267 H Arterial Blood Glucose Urine pH Ur Specific [place] Coronavirus (PCR) 03/16/21 03/16/21 03/16/21 17:29 22:25 23:22 WBC RBC Hgb Hct MCV MCHC RDW Plt Count Lymph % (Auto) [place] % (Auto) Lymph # (Auto) [place] # (Auto) Seg Neutrophils % Seg Neuts % (Manual) Lymphocytes % (Manual) Monocytes % (Manual) Nucleated RBC % Seg Neutrophils # Seg Neutrophils # Man Lymphocytes # (Manual) Monocytes # (Manual) PT INR APTT D-Dimer Heparin Anti-Xa Level ABG pH POC ABG pCO2 POC ABG pO2 ABG pO2 ABG HCO3 ABG O2 Saturation ABG Base Excess ABG Hemoglobin ABG Oxyhemoglobin ABG Sodium ABG Potassium ABG Glucose Oxyhemoglobin Carboxyhemoglobin Sodium Potassium Chloride Carbon Dioxide BUN Creatinine Glucose POC Glucose 237 H 165 H 189 H Lactic Acid Calcium Phosphorus Magnesium Ferritin Lactate Dehydrogenase C-Reactive Protein NT-Pro-B Natriuret Pep Total Protein Albumin Triglycerides Arterial Blood Glucose Urine pH Ur Specific [place] Coronavirus (PCR) 03/17/21 03/17/21 03/17/21 04:40 04:40 04:40 WBC 14.1 H RBC Hgb Hct MCV MCHC RDW 15.3 H Plt Count Lymph % (Auto) 12.6 L [place] % (Auto) 11.3 H Lymph # (Auto) [place] # (Auto) 1.6 H Seg Neutrophils % 74.9 H Seg Neuts % (Manual) Lymphocytes % (Manual) Monocytes % (Manual) Nucleated RBC % Seg Neutrophils # 10.5 H Seg Neutrophils # Man Lymphocytes # (Manual) Monocytes # (Manual) PT INR APTT D-Dimer 1359.12 H Heparin Anti-Xa Level ABG pH POC ABG pCO2 POC ABG pO2 ABG pO2 ABG HCO3 ABG O2 Saturation ABG Base Excess ABG Hemoglobin ABG Oxyhemoglobin ABG Sodium ABG Potassium ABG Glucose Oxyhemoglobin Carboxyhemoglobin Sodium 148 H Potassium Chloride 107.5 H Carbon Dioxide 33 H BUN 42 H Creatinine Glucose 183 H POC Glucose Lactic Acid Calcium Phosphorus Magnesium 2.70 H Ferritin Lactate Dehydrogenase C-Reactive Protein NT-Pro-B Natriuret Pep Total Protein Albumin Triglycerides Arterial Blood Glucose Urine pH Ur Specific [place] Coronavirus (PCR) 03/17/21 03/17/21 03/17/21 05:53 11:05 11:51 WBC RBC Hgb Hct MCV MCHC RDW Plt Count Lymph % (Auto) [place] % (Auto) Lymph # (Auto) [place] # (Auto) Seg Neutrophils % Seg Neuts % (Manual) Lymphocytes % (Manual) Monocytes % (Manual) Nucleated RBC % Seg Neutrophils # Seg Neutrophils # Man Lymphocytes # (Manual) Monocytes # (Manual) PT INR APTT D-Dimer Heparin Anti-Xa Level ABG pH POC ABG pCO2 POC ABG pO2 ABG pO2 ABG HCO3 35.7 H ABG O2 Saturation ABG Base Excess 8.7 H ABG Hemoglobin ABG Oxyhemoglobin ABG Sodium ABG Potassium ABG Glucose Oxyhemoglobin 94.2 L Carboxyhemoglobin Sodium Potassium Chloride Carbon Dioxide BUN Creatinine Glucose POC Glucose 176 H 197 H Lactic Acid Calcium Phosphorus Magnesium Ferritin Lactate Dehydrogenase C-Reactive Protein NT-Pro-B Natriuret Pep Total Protein Albumin Triglycerides Arterial Blood Glucose Urine pH Ur Specific [place] Coronavirus (PCR) 03/17/21 03/17/21 03/17/21 16:54 21:10 23:33 WBC RBC Hgb Hct MCV MCHC RDW Plt Count Lymph % (Auto) [place] % (Auto) Lymph # (Auto) [place] # (Auto) Seg Neutrophils % Seg Neuts % (Manual) Lymphocytes % (Manual) Monocytes % (Manual) Nucleated RBC % Seg Neutrophils # Seg Neutrophils # Man Lymphocytes # (Manual) Monocytes # (Manual) PT INR APTT D-Dimer Heparin Anti-Xa Level ABG pH POC ABG pCO2 POC ABG pO2 ABG pO2 ABG HCO3 ABG O2 Saturation ABG Base Excess ABG Hemoglobin ABG Oxyhemoglobin ABG Sodium ABG Potassium ABG Glucose Oxyhemoglobin Carboxyhemoglobin Sodium Potassium Chloride Carbon Dioxide BUN Creatinine Glucose POC Glucose 135 H 160 H 138 H Lactic Acid Calcium Phosphorus Magnesium Ferritin Lactate Dehydrogenase C-Reactive Protein NT-Pro-B Natriuret Pep Total Protein Albumin Triglycerides Arterial Blood Glucose Urine pH Ur Specific [place] Coronavirus (PCR) 03/18/21 03/18/21 03/18/21 04:18 04:50 05:43 WBC RBC Hgb Hct MCV MCHC RDW Plt Count Lymph % (Auto) [place] % (Auto) Lymph # (Auto) [place] # (Auto) Seg Neutrophils % Seg Neuts % (Manual) Lymphocytes % (Manual) Monocytes % (Manual) Nucleated RBC % Seg Neutrophils # Seg Neutrophils # Man Lymphocytes # (Manual) Monocytes # (Manual) PT INR APTT D-Dimer Heparin Anti-Xa Level ABG pH POC ABG pCO2 POC ABG pO2 ABG pO2 59.8 L ABG HCO3 36.5 H ABG O2 Saturation 90.7 L ABG Base Excess 9.4 H ABG Hemoglobin 12.0 L ABG Oxyhemoglobin ABG Sodium ABG Potassium ABG Glucose Oxyhemoglobin 88.9 L Carboxyhemoglobin Sodium Potassium Chloride 107.2 H Carbon Dioxide 34 H BUN 38 H Creatinine 0.7 L Glucose 136 H POC Glucose 128 H Lactic Acid Calcium Phosphorus Magnesium Ferritin Lactate Dehydrogenase C-Reactive Protein NT-Pro-B Natriuret Pep Total Protein Albumin Triglycerides Arterial Blood Glucose Urine pH Ur Specific [place] Coronavirus (PCR) 03/18/21 03/18/21 03/18/21 11:20 17:35 23:35 WBC RBC Hgb Hct MCV MCHC RDW Plt Count Lymph % (Auto) [place] % (Auto) Lymph # (Auto) [place] # (Auto) Seg Neutrophils % Seg Neuts % (Manual) Lymphocytes % (Manual) Monocytes % (Manual) Nucleated RBC % Seg Neutrophils # Seg Neutrophils # Man Lymphocytes # (Manual) Monocytes # (Manual) PT INR APTT D-Dimer Heparin Anti-Xa Level ABG pH POC ABG pCO2 POC ABG pO2 ABG pO2 70.7 L ABG HCO3 33.6 H ABG O2 Saturation ABG Base Excess 8.0 H ABG Hemoglobin ABG Oxyhemoglobin ABG Sodium ABG Potassium ABG Glucose Oxyhemoglobin 93.7 L Carboxyhemoglobin Sodium Potassium Chloride Carbon Dioxide BUN Creatinine Glucose POC Glucose 189 H 144 H Lactic Acid Calcium Phosphorus Magnesium Ferritin Lactate Dehydrogenase C-Reactive Protein NT-Pro-B Natriuret Pep Total Protein Albumin Triglycerides Arterial Blood Glucose Urine pH Ur Specific [place] Coronavirus (PCR) 03/19/21 03/19/21 03/19/21 02:35 04:20 04:20 WBC 14.0 H RBC Hgb Hct MCV MCHC RDW Plt Count Lymph % (Auto) [place] % (Auto) Lymph # (Auto) [place] # (Auto) Seg Neutrophils % Seg Neuts % (Manual) Lymphocytes % (Manual) Monocytes % (Manual) Nucleated RBC % Seg Neutrophils # Seg Neutrophils # Man Lymphocytes # (Manual) Monocytes # (Manual) PT INR APTT D-Dimer Heparin Anti-Xa Level ABG pH POC ABG pCO2 POC ABG pO2 ABG pO2 ABG HCO3 32.0 H ABG O2 Saturation ABG Base Excess 5.2 H ABG Hemoglobin 13.6 L ABG Oxyhemoglobin ABG Sodium ABG Potassium ABG Glucose Oxyhemoglobin 94.6 L Carboxyhemoglobin Sodium 146 H Potassium Chloride 109.3 H Carbon Dioxide BUN 36 H Creatinine Glucose 203 H POC Glucose Lactic Acid Calcium Phosphorus Magnesium Ferritin Lactate Dehydrogenase C-Reactive Protein NT-Pro-B Natriuret Pep Total Protein Albumin Triglycerides 254 H Arterial Blood Glucose Urine pH Ur Specific [place] Coronavirus (PCR) 03/19/21 03/19/21 03/19/21 05:45 11:36 23:51 WBC RBC Hgb Hct MCV MCHC RDW Plt Count Lymph % (Auto) [place] % (Auto) Lymph # (Auto) [place] # (Auto) Seg Neutrophils % Seg Neuts % (Manual) Lymphocytes % (Manual) Monocytes % (Manual) Nucleated RBC % Seg Neutrophils # Seg Neutrophils # Man Lymphocytes # (Manual) Monocytes # (Manual) PT INR APTT D-Dimer Heparin Anti-Xa Level ABG pH POC ABG pCO2 POC ABG pO2 ABG pO2 ABG HCO3 ABG O2 Saturation ABG Base Excess ABG Hemoglobin ABG Oxyhemoglobin ABG Sodium ABG Potassium ABG Glucose Oxyhemoglobin Carboxyhemoglobin Sodium Potassium Chloride Carbon Dioxide BUN Creatinine Glucose POC Glucose 164 H 172 H 140 H Lactic Acid Calcium Phosphorus Magnesium Ferritin Lactate Dehydrogenase C-Reactive Protein NT-Pro-B Natriuret Pep Total Protein Albumin Triglycerides Arterial Blood Glucose Urine pH Ur Specific [place] Coronavirus (PCR) 03/20/21 03/20/21 03/20/21 03:29 04:45 04:45 WBC RBC Hgb Hct MCV 95 H MCHC RDW 15.7 H Plt Count Lymph % (Auto) [place] % (Auto) Lymph # (Auto) [place] # (Auto) Seg Neutrophils % Seg Neuts % (Manual) Lymphocytes % (Manual) Monocytes % (Manual) Nucleated RBC % Seg Neutrophils # Seg Neutrophils # Man Lymphocytes # (Manual) Monocytes # (Manual) PT INR APTT D-Dimer Heparin Anti-Xa Level ABG pH 7.349 L POC ABG pCO2 POC ABG pO2 ABG pO2 ABG HCO3 33.7 H ABG O2 Saturation ABG Base Excess 6.4 H ABG Hemoglobin 11.8 L ABG Oxyhemoglobin ABG Sodium ABG Potassium ABG Glucose Oxyhemoglobin 93.9 L Carboxyhemoglobin Sodium 146 H Potassium 5.5 H Chloride 111.1 H Carbon Dioxide BUN 34 H Creatinine 0.7 L Glucose 145 H POC Glucose Lactic Acid Calcium Phosphorus Magnesium 2.50 H Ferritin Lactate Dehydrogenase C-Reactive Protein NT-Pro-B Natriuret Pep Total Protein Albumin Triglycerides Arterial Blood Glucose Urine pH Ur Specific [place] Coronavirus (PCR) 03/20/21 03/20/21 03/20/21 05:41 09:08 11:54 WBC RBC Hgb Hct MCV MCHC RDW Plt Count Lymph % (Auto) [place] % (Auto) Lymph # (Auto) [place] # (Auto) Seg Neutrophils % Seg Neuts % (Manual) Lymphocytes % (Manual) Monocytes % (Manual) Nucleated RBC % Seg Neutrophils # Seg Neutrophils # Man Lymphocytes # (Manual) Monocytes # (Manual) PT INR APTT D-Dimer Heparin Anti-Xa Level ABG pH POC ABG pCO2 POC ABG pO2 ABG pO2 ABG HCO3 ABG O2 Saturation ABG Base Excess ABG Hemoglobin ABG Oxyhemoglobin ABG Sodium ABG Potassium ABG Glucose Oxyhemoglobin Carboxyhemoglobin Sodium Potassium Chloride Carbon Dioxide BUN Creatinine Glucose POC Glucose 108 H 132 H 162 H Lactic Acid Calcium Phosphorus Magnesium Ferritin Lactate Dehydrogenase C-Reactive Protein NT-Pro-B Natriuret Pep Total Protein Albumin Triglycerides Arterial Blood Glucose Urine pH Ur Specific [place] Coronavirus (PCR) 03/20/21 03/21/21 03/21/21 17:28 00:31 04:44 WBC RBC Hgb Hct MCV MCHC RDW Plt Count Lymph % (Auto) [place] % (Auto) Lymph # (Auto) [place] # (Auto) Seg Neutrophils % Seg Neuts % (Manual) Lymphocytes % (Manual) Monocytes % (Manual) Nucleated RBC % Seg Neutrophils # Seg Neutrophils # Man Lymphocytes # (Manual) Monocytes # (Manual) PT INR APTT D-Dimer Heparin Anti-Xa Level ABG pH POC ABG pCO2 POC ABG pO2 ABG pO2 ABG HCO3 ABG O2 Saturation ABG Base Excess ABG Hemoglobin ABG Oxyhemoglobin ABG Sodium ABG Potassium ABG Glucose Oxyhemoglobin Carboxyhemoglobin Sodium Potassium Chloride 108.3 H Carbon Dioxide BUN 30 H Creatinine 0.7 L Glucose POC Glucose 160 H 122 H Lactic Acid Calcium Phosphorus Magnesium Ferritin Lactate Dehydrogenase C-Reactive Protein NT-Pro-B Natriuret Pep Total Protein Albumin Triglycerides Arterial Blood Glucose Urine pH Ur Specific [place] Coronavirus (PCR) 03/21/21 03/21/21 03/21/21 09:18 10:09 13:20 WBC RBC Hgb Hct MCV MCHC RDW Plt Count Lymph % (Auto) [place] % (Auto) Lymph # (Auto) [place] # (Auto) Seg Neutrophils % Seg Neuts % (Manual) Lymphocytes % (Manual) Monocytes % (Manual) Nucleated RBC % Seg Neutrophils # Seg Neutrophils # Man Lymphocytes # (Manual) Monocytes # (Manual) PT INR APTT D-Dimer Heparin Anti-Xa Level ABG pH POC ABG pCO2 POC ABG pO2 ABG pO2 60.7 L ABG HCO3 30.6 H ABG O2 Saturation 93.6 L ABG Base Excess 5.3 H ABG Hemoglobin ABG Oxyhemoglobin ABG Sodium ABG Potassium ABG Glucose Oxyhemoglobin 91.7 L Carboxyhemoglobin Sodium Potassium Chloride Carbon Dioxide BUN Creatinine Glucose POC Glucose 169 H 122 H Lactic Acid Calcium Phosphorus Magnesium Ferritin Lactate Dehydrogenase C-Reactive Protein NT-Pro-B Natriuret Pep Total Protein Albumin Triglycerides Arterial Blood Glucose Urine pH Ur Specific [place] Coronavirus (PCR) 03/21/21 03/21/21 03/21/21 17:25 22:41 23:52 WBC RBC Hgb Hct MCV MCHC RDW Plt Count Lymph % (Auto) [place] % (Auto) Lymph # (Auto) [place] # (Auto) Seg Neutrophils % Seg Neuts % (Manual) Lymphocytes % (Manual) Monocytes % (Manual) Nucleated RBC % Seg Neutrophils # Seg Neutrophils # Man Lymphocytes # (Manual) Monocytes # (Manual) PT INR APTT D-Dimer Heparin Anti-Xa Level ABG pH POC ABG pCO2 POC ABG pO2 ABG pO2 ABG HCO3 ABG O2 Saturation ABG Base Excess ABG Hemoglobin ABG Oxyhemoglobin ABG Sodium ABG Potassium ABG Glucose Oxyhemoglobin Carboxyhemoglobin Sodium Potassium Chloride Carbon Dioxide BUN Creatinine Glucose POC Glucose 121 H 139 H 140 H Lactic Acid Calcium Phosphorus Magnesium Ferritin Lactate Dehydrogenase C-Reactive Protein NT-Pro-B Natriuret Pep Total Protein Albumin Triglycerides Arterial Blood Glucose Urine pH Ur Specific [place] Coronavirus (PCR) 03/22/21 03/22/21 03/22/21 05:58 07:26 07:26 WBC RBC Hgb Hct MCV MCHC 31 L RDW 16.1 H Plt Count Lymph % (Auto) [place] % (Auto) Lymph # (Auto) [place] # (Auto) Seg Neutrophils % Seg Neuts % (Manual) Lymphocytes % (Manual) Monocytes % (Manual) Nucleated RBC % Seg Neutrophils # Seg Neutrophils # Man Lymphocytes # (Manual) Monocytes # (Manual) PT INR APTT D-Dimer Heparin Anti-Xa Level ABG pH POC ABG pCO2 POC ABG pO2 ABG pO2 ABG HCO3 ABG O2 Saturation ABG Base Excess ABG Hemoglobin ABG Oxyhemoglobin ABG Sodium ABG Potassium ABG Glucose Oxyhemoglobin Carboxyhemoglobin Sodium Potassium Chloride 108.5 H Carbon Dioxide BUN 44 H Creatinine Glucose 120 H POC Glucose 131 H Lactic Acid Calcium Phosphorus 5.80 H Magnesium 2.80 H Ferritin Lactate Dehydrogenase C-Reactive Protein NT-Pro-B Natriuret Pep Total Protein Albumin Triglycerides 305 H Arterial Blood Glucose Urine pH Ur Specific [place] Coronavirus (PCR) 03/22/21 03/22/21 03/22/21 09:38 11:15 16:01 WBC RBC Hgb Hct MCV MCHC RDW Plt Count Lymph % (Auto) [place] % (Auto) Lymph # (Auto) [place] # (Auto) Seg Neutrophils % Seg Neuts % (Manual) Lymphocytes % (Manual) Monocytes % (Manual) Nucleated RBC % Seg Neutrophils # Seg Neutrophils # Man Lymphocytes # (Manual) Monocytes # (Manual) PT INR APTT D-Dimer Heparin Anti-Xa Level ABG pH POC ABG pCO2 POC ABG pO2 ABG pO2 70.0 L ABG HCO3 30.0 H ABG O2 Saturation 94.6 L ABG Base Excess 3.6 H ABG Hemoglobin 13.5 L ABG Oxyhemoglobin ABG Sodium ABG Potassium ABG Glucose Oxyhemoglobin 92.5 L Carboxyhemoglobin Sodium Potassium Chloride Carbon Dioxide BUN Creatinine Glucose POC Glucose 186 H 148 H Lactic Acid Calcium Phosphorus Magnesium Ferritin Lactate Dehydrogenase C-Reactive Protein NT-Pro-B Natriuret Pep Total Protein Albumin Triglycerides Arterial Blood Glucose Urine pH Ur Specific [place] Coronavirus (PCR) 03/22/21 03/22/21 03/23/21 21:13 23:48 07:04 WBC 11.7 H RBC Hgb Hct MCV 95 H MCHC RDW 16.1 H Plt Count Lymph % (Auto) [place] % (Auto) Lymph # (Auto) [place] # (Auto) Seg Neutrophils % Seg Neuts % (Manual) Lymphocytes % (Manual) Monocytes % (Manual) Nucleated RBC % Seg Neutrophils # Seg Neutrophils # Man Lymphocytes # (Manual) Monocytes # (Manual) PT INR APTT D-Dimer Heparin Anti-Xa Level ABG pH POC ABG pCO2 POC ABG pO2 ABG pO2 ABG HCO3 ABG O2 Saturation ABG Base Excess ABG Hemoglobin ABG Oxyhemoglobin ABG Sodium ABG Potassium ABG Glucose Oxyhemoglobin Carboxyhemoglobin Sodium Potassium Chloride Carbon Dioxide BUN Creatinine Glucose POC Glucose 121 H 114 H Lactic Acid Calcium Phosphorus Magnesium Ferritin Lactate Dehydrogenase C-Reactive Protein NT-Pro-B Natriuret Pep Total Protein Albumin Triglycerides Arterial Blood Glucose Urine pH Ur Specific [place] Coronavirus (PCR) 03/23/21 03/23/21 03/23/21 07:04 08:35 11:19 WBC RBC Hgb Hct MCV MCHC RDW Plt Count Lymph % (Auto) [place] % (Auto) Lymph # (Auto) [place] # (Auto) Seg Neutrophils % Seg Neuts % (Manual) Lymphocytes % (Manual) Monocytes % (Manual) Nucleated RBC % Seg Neutrophils # Seg Neutrophils # Man Lymphocytes # (Manual) Monocytes # (Manual) PT INR APTT D-Dimer Heparin Anti-Xa Level ABG pH 7.345 L POC ABG pCO2 POC ABG pO2 ABG pO2 167.9 H ABG HCO3 32.2 H ABG O2 Saturation ABG Base Excess 4.8 H ABG Hemoglobin 13.4 L ABG Oxyhemoglobin ABG Sodium ABG Potassium ABG Glucose Oxyhemoglobin Carboxyhemoglobin Sodium 148 H Potassium Chloride 111.3 H Carbon Dioxide 31 H BUN 31 H Creatinine Glucose 131 H POC Glucose 165 H Lactic Acid Calcium Phosphorus Magnesium 2.50 H Ferritin Lactate Dehydrogenase C-Reactive Protein NT-Pro-B Natriuret Pep Total Protein Albumin Triglycerides Arterial Blood Glucose Urine pH Ur Specific [place] Coronavirus (PCR) 03/23/21 03/23/21 03/24/21 16:48 20:52 00:07 WBC RBC Hgb Hct MCV MCHC RDW Plt Count Lymph % (Auto) [place] % (Auto) Lymph # (Auto) [place] # (Auto) Seg Neutrophils % Seg Neuts % (Manual) Lymphocytes % (Manual) Monocytes % (Manual) Nucleated RBC % Seg Neutrophils # Seg Neutrophils # Man Lymphocytes # (Manual) Monocytes # (Manual) PT INR APTT D-Dimer Heparin Anti-Xa Level ABG pH POC ABG pCO2 POC ABG pO2 ABG pO2 ABG HCO3 ABG O2 Saturation ABG Base Excess ABG Hemoglobin ABG Oxyhemoglobin ABG Sodium ABG Potassium ABG Glucose Oxyhemoglobin Carboxyhemoglobin Sodium Potassium Chloride Carbon Dioxide BUN Creatinine Glucose POC Glucose 160 H 127 H 147 H Lactic Acid Calcium Phosphorus Magnesium Ferritin Lactate Dehydrogenase C-Reactive Protein NT-Pro-B Natriuret Pep Total Protein Albumin Triglycerides Arterial Blood Glucose Urine pH Ur Specific [place] Coronavirus (PCR) 03/24/21 03/24/21 03/24/21 04:34 04:34 05:20 WBC 13.3 H RBC Hgb Hct MCV MCHC 31 L RDW 16.1 H Plt Count Lymph % (Auto) [place] % (Auto) Lymph # (Auto) [place] # (Auto) Seg Neutrophils % Seg Neuts % (Manual) Lymphocytes % (Manual) Monocytes % (Manual) Nucleated RBC % Seg Neutrophils # Seg Neutrophils # Man Lymphocytes # (Manual) Monocytes # (Manual) PT INR APTT D-Dimer Heparin Anti-Xa Level ABG pH POC ABG pCO2 POC ABG pO2 ABG pO2 ABG HCO3 ABG O2 Saturation ABG Base Excess ABG Hemoglobin ABG Oxyhemoglobin ABG Sodium ABG Potassium ABG Glucose Oxyhemoglobin Carboxyhemoglobin Sodium Potassium 5.2 H Chloride Carbon Dioxide BUN 28 H Creatinine 0.7 L Glucose 152 H POC Glucose 141 H Lactic Acid Calcium Phosphorus Magnesium Ferritin Lactate Dehydrogenase C-Reactive Protein NT-Pro-B Natriuret Pep Total Protein Albumin Triglycerides Arterial Blood Glucose Urine pH Ur Specific [place] Coronavirus (PCR) 03/24/21 03/24/21 03/24/21 09:40 11:38 16:45 WBC RBC Hgb Hct MCV MCHC RDW Plt Count Lymph % (Auto) [place] % (Auto) Lymph # (Auto) [place] # (Auto) Seg Neutrophils % Seg Neuts % (Manual) Lymphocytes % (Manual) Monocytes % (Manual) Nucleated RBC % Seg Neutrophils # Seg Neutrophils # Man Lymphocytes # (Manual) Monocytes # (Manual) PT INR APTT D-Dimer Heparin Anti-Xa Level ABG pH POC ABG pCO2 POC ABG pO2 ABG pO2 ABG HCO3 ABG O2 Saturation ABG Base Excess ABG Hemoglobin ABG Oxyhemoglobin ABG Sodium ABG Potassium ABG Glucose Oxyhemoglobin Carboxyhemoglobin Sodium Potassium Chloride Carbon Dioxide BUN Creatinine Glucose POC Glucose 126 H 136 H 118 H Lactic Acid Calcium Phosphorus Magnesium Ferritin Lactate Dehydrogenase C-Reactive Protein NT-Pro-B Natriuret Pep Total Protein Albumin Triglycerides Arterial Blood Glucose Urine pH Ur Specific [place] Coronavirus (PCR) 03/24/21 03/24/21 03/25/21 21:03 23:49 04:32 WBC RBC Hgb Hct MCV MCHC RDW 16.1 H Plt Count 121 L Lymph % (Auto) [place] % (Auto) Lymph # (Auto) [place] # (Auto) Seg Neutrophils % Seg Neuts % (Manual) Lymphocytes % (Manual) Monocytes % (Manual) Nucleated RBC % Seg Neutrophils # Seg Neutrophils # Man Lymphocytes # (Manual) Monocytes # (Manual) PT INR APTT D-Dimer Heparin Anti-Xa Level ABG pH POC ABG pCO2 POC ABG pO2 ABG pO2 ABG HCO3 ABG O2 Saturation ABG Base Excess ABG Hemoglobin ABG Oxyhemoglobin ABG Sodium ABG Potassium ABG Glucose Oxyhemoglobin Carboxyhemoglobin Sodium Potassium Chloride Carbon Dioxide BUN Creatinine Glucose POC Glucose 116 H 125 H Lactic Acid Calcium Phosphorus Magnesium Ferritin Lactate Dehydrogenase C-Reactive Protein NT-Pro-B Natriuret Pep Total Protein Albumin Triglycerides Arterial Blood Glucose Urine pH Ur Specific [place] Coronavirus (PCR) 03/25/21 03/25/21 03/25/21 04:32 05:21 09:29 WBC RBC Hgb Hct MCV MCHC RDW Plt Count Lymph % (Auto) [place] % (Auto) Lymph # (Auto) [place] # (Auto) Seg Neutrophils % Seg Neuts % (Manual) Lymphocytes % (Manual) Monocytes % (Manual) Nucleated RBC % Seg Neutrophils # Seg Neutrophils # Man Lymphocytes # (Manual) Monocytes # (Manual) PT INR APTT D-Dimer Heparin Anti-Xa Level ABG pH POC ABG pCO2 POC ABG pO2 ABG pO2 ABG HCO3 ABG O2 Saturation ABG Base Excess ABG Hemoglobin ABG Oxyhemoglobin ABG Sodium ABG Potassium ABG Glucose Oxyhemoglobin Carboxyhemoglobin Sodium 135 L D Potassium Chloride Carbon Dioxide BUN 25 H Creatinine 0.7 L Glucose 168 H POC Glucose 149 H 115 H Lactic Acid Calcium Phosphorus Magnesium Ferritin Lactate Dehydrogenase C-Reactive Protein NT-Pro-B Natriuret Pep Total Protein Albumin Triglycerides Arterial Blood Glucose Urine pH Ur Specific [place] Coronavirus (PCR) 03/25/21 03/25/21 03/25/21 12:26 12:35 23:53 WBC RBC Hgb Hct MCV MCHC RDW Plt Count Lymph % (Auto) [place] % (Auto) Lymph # (Auto) [place] # (Auto) Seg Neutrophils % Seg Neuts % (Manual) Lymphocytes % (Manual) Monocytes % (Manual) Nucleated RBC % Seg Neutrophils # Seg Neutrophils # Man Lymphocytes # (Manual) Monocytes # (Manual) PT INR APTT D-Dimer Heparin Anti-Xa Level ABG pH POC ABG pCO2 POC ABG pO2 ABG pO2 100.5 H ABG HCO3 33.6 H ABG O2 Saturation ABG Base Excess 6.4 H ABG Hemoglobin 12.0 L ABG Oxyhemoglobin ABG Sodium ABG Potassium ABG Glucose Oxyhemoglobin Carboxyhemoglobin Sodium Potassium Chloride Carbon Dioxide BUN Creatinine Glucose POC Glucose 108 H 137 H Lactic Acid Calcium Phosphorus Magnesium Ferritin Lactate Dehydrogenase C-Reactive Protein NT-Pro-B Natriuret Pep Total Protein Albumin Triglycerides Arterial Blood Glucose Urine pH Ur Specific [place] Coronavirus (PCR) 03/26/21 03/26/21 03/26/21 05:14 07:09 07:09 WBC RBC Hgb Hct MCV MCHC RDW 16.5 H Plt Count 139 L Lymph % (Auto) [place] % (Auto) Lymph # (Auto) [place] # (Auto) Seg Neutrophils % Seg Neuts % (Manual) Lymphocytes % (Manual) Monocytes % (Manual) Nucleated RBC % Seg Neutrophils # Seg Neutrophils # Man Lymphocytes # (Manual) Monocytes # (Manual) PT INR APTT D-Dimer Heparin Anti-Xa Level ABG pH POC ABG pCO2 POC ABG pO2 ABG pO2 ABG HCO3 ABG O2 Saturation ABG Base Excess ABG Hemoglobin ABG Oxyhemoglobin ABG Sodium ABG Potassium ABG Glucose Oxyhemoglobin Carboxyhemoglobin Sodium Potassium Chloride Carbon Dioxide BUN 22 H Creatinine 0.7 L Glucose 108 H POC Glucose 116 H Lactic Acid Calcium Phosphorus Magnesium Ferritin Lactate Dehydrogenase C-Reactive Protein NT-Pro-B Natriuret Pep Total Protein Albumin Triglycerides Arterial Blood Glucose Urine pH Ur Specific [place] Coronavirus (PCR) 03/26/21 03/26/21 03/26/21 09:51 11:15 16:59 WBC RBC Hgb Hct MCV MCHC RDW Plt Count Lymph % (Auto) [place] % (Auto) Lymph # (Auto) [place] # (Auto) Seg Neutrophils % Seg Neuts % (Manual) Lymphocytes % (Manual) Monocytes % (Manual) Nucleated RBC % Seg Neutrophils # Seg Neutrophils # Man Lymphocytes # (Manual) Monocytes # (Manual) PT INR APTT D-Dimer Heparin Anti-Xa Level ABG pH POC ABG pCO2 POC ABG pO2 ABG pO2 ABG HCO3 ABG O2 Saturation ABG Base Excess ABG Hemoglobin ABG Oxyhemoglobin ABG Sodium ABG Potassium ABG Glucose Oxyhemoglobin Carboxyhemoglobin Sodium Potassium Chloride Carbon Dioxide BUN Creatinine Glucose POC Glucose 107 H 119 H 174 H Lactic Acid Calcium Phosphorus Magnesium Ferritin Lactate Dehydrogenase C-Reactive Protein NT-Pro-B Natriuret Pep Total Protein Albumin Triglycerides Arterial Blood Glucose Urine pH Ur Specific [place] Coronavirus (PCR) 03/26/21 03/27/21 03/27/21 22:18 07:08 10:28 WBC RBC Hgb Hct MCV 95 H MCHC RDW 16.2 H Plt Count 134 L Lymph % (Auto) [place] % (Auto) Lymph # (Auto) [place] # (Auto) Seg Neutrophils % Seg Neuts % (Manual) Lymphocytes % (Manual) Monocytes % (Manual) Nucleated RBC % Seg Neutrophils # Seg Neutrophils # Man Lymphocytes # (Manual) Monocytes # (Manual) PT INR APTT D-Dimer Heparin Anti-Xa Level ABG pH POC ABG pCO2 POC ABG pO2 ABG pO2 ABG HCO3 ABG O2 Saturation ABG Base Excess ABG Hemoglobin ABG Oxyhemoglobin ABG Sodium ABG Potassium ABG Glucose Oxyhemoglobin Carboxyhemoglobin Sodium Potassium Chloride Carbon Dioxide BUN Creatinine Glucose POC Glucose 107 H 52 L Lactic Acid Calcium Phosphorus Magnesium Ferritin Lactate Dehydrogenase C-Reactive Protein NT-Pro-B Natriuret Pep Total Protein Albumin Triglycerides Arterial Blood Glucose Urine pH Ur Specific [place] Coronavirus (PCR) 03/27/21 03/27/21 03/27/21 10:28 11:45 17:39 WBC RBC Hgb Hct MCV MCHC RDW Plt Count Lymph % (Auto) [place] % (Auto) Lymph # (Auto) [place] # (Auto) Seg Neutrophils % Seg Neuts % (Manual) Lymphocytes % (Manual) Monocytes % (Manual) Nucleated RBC % Seg Neutrophils # Seg Neutrophils # Man Lymphocytes # (Manual) Monocytes # (Manual) PT INR APTT D-Dimer Heparin Anti-Xa Level ABG pH POC ABG pCO2 POC ABG pO2 ABG pO2 ABG HCO3 ABG O2 Saturation ABG Base Excess ABG Hemoglobin ABG Oxyhemoglobin ABG Sodium ABG Potassium ABG Glucose Oxyhemoglobin Carboxyhemoglobin Sodium 136 L Potassium Chloride Carbon Dioxide BUN Creatinine 0.7 L Glucose 150 H POC Glucose 121 H 165 H Lactic Acid Calcium Phosphorus Magnesium Ferritin Lactate Dehydrogenase C-Reactive Protein NT-Pro-B Natriuret Pep Total Protein Albumin Triglycerides Arterial Blood Glucose Urine pH Ur Specific [place] Coronavirus (PCR) 03/28/21 03/28/21 03/28/21 07:14 11:42 18:22 WBC RBC Hgb Hct MCV MCHC RDW 16.4 H Plt Count Lymph % (Auto) [place] % (Auto) Lymph # (Auto) [place] # (Auto) Seg Neutrophils % Seg Neuts % (Manual) Lymphocytes % (Manual) Monocytes % (Manual) Nucleated RBC % Seg Neutrophils # Seg Neutrophils # Man Lymphocytes # (Manual) Monocytes # (Manual) PT INR APTT D-Dimer Heparin Anti-Xa Level ABG pH POC ABG pCO2 POC ABG pO2 ABG pO2 ABG HCO3 ABG O2 Saturation ABG Base Excess ABG Hemoglobin ABG Oxyhemoglobin ABG Sodium ABG Potassium ABG Glucose Oxyhemoglobin Carboxyhemoglobin Sodium Potassium Chloride Carbon Dioxide BUN Creatinine Glucose POC Glucose 145 H 169 H Lactic Acid Calcium Phosphorus Magnesium Ferritin Lactate Dehydrogenase C-Reactive Protein NT-Pro-B Natriuret Pep Total Protein Albumin Triglycerides Arterial Blood Glucose Urine pH Ur Specific [place] Coronavirus (PCR) 03/28/21 03/29/21 03/29/21 23:39 04:50 04:50 WBC RBC Hgb 11.0 L Hct 34.9 L MCV MCHC RDW 15.9 H Plt Count Lymph % (Auto) [place] % (Auto) Lymph # (Auto) [place] # (Auto) Seg Neutrophils % Seg Neuts % (Manual) Lymphocytes % (Manual) Monocytes % (Manual) Nucleated RBC % Seg Neutrophils # Seg Neutrophils # Man Lymphocytes # (Manual) Monocytes # (Manual) PT INR APTT D-Dimer Heparin Anti-Xa Level ABG pH POC ABG pCO2 POC ABG pO2 ABG pO2 ABG HCO3 ABG O2 Saturation ABG Base Excess ABG Hemoglobin ABG Oxyhemoglobin ABG Sodium ABG Potassium ABG Glucose Oxyhemoglobin Carboxyhemoglobin Sodium Potassium Chloride Carbon Dioxide 34 H BUN Creatinine 0.6 L Glucose 152 H POC Glucose 139 H Lactic Acid Calcium Phosphorus Magnesium Ferritin Lactate Dehydrogenase C-Reactive Protein NT-Pro-B Natriuret Pep Total Protein Albumin Triglycerides Arterial Blood Glucose Urine pH Ur Specific [place] Coronavirus (PCR) 03/29/21 03/29/21 03/29/21 05:25 11:34 18:02 WBC RBC Hgb Hct MCV MCHC RDW Plt Count Lymph % (Auto) [place] % (Auto) Lymph # (Auto) [place] # (Auto) Seg Neutrophils % Seg Neuts % (Manual) Lymphocytes % (Manual) Monocytes % (Manual) Nucleated RBC % Seg Neutrophils # Seg Neutrophils # Man Lymphocytes # (Manual) Monocytes # (Manual) PT INR APTT D-Dimer Heparin Anti-Xa Level ABG pH POC ABG pCO2 POC ABG pO2 ABG pO2 ABG HCO3 ABG O2 Saturation ABG Base Excess ABG Hemoglobin ABG Oxyhemoglobin ABG Sodium ABG Potassium ABG Glucose Oxyhemoglobin Carboxyhemoglobin Sodium Potassium Chloride Carbon Dioxide BUN Creatinine Glucose POC Glucose 127 H 169 H 173 H Lactic Acid Calcium Phosphorus Magnesium Ferritin Lactate Dehydrogenase C-Reactive Protein NT-Pro-B Natriuret Pep Total Protein Albumin Triglycerides Arterial Blood Glucose Urine pH Ur Specific [place] Coronavirus (PCR) 03/29/21 03/30/21 03/30/21 21:42 00:01 05:36 WBC RBC Hgb Hct MCV MCHC RDW 16.7 H Plt Count Lymph % (Auto) [place] % (Auto) Lymph # (Auto) [place] # (Auto) Seg Neutrophils % Seg Neuts % (Manual) Lymphocytes % (Manual) Monocytes % (Manual) Nucleated RBC % Seg Neutrophils # Seg Neutrophils # Man Lymphocytes # (Manual) Monocytes # (Manual) PT INR APTT D-Dimer Heparin Anti-Xa Level ABG pH POC ABG pCO2 POC ABG pO2 ABG pO2 ABG HCO3 ABG O2 Saturation ABG Base Excess ABG Hemoglobin ABG Oxyhemoglobin ABG Sodium ABG Potassium ABG Glucose Oxyhemoglobin Carboxyhemoglobin Sodium Potassium Chloride Carbon Dioxide BUN Creatinine Glucose POC Glucose 184 H 161 H Lactic Acid Calcium Phosphorus Magnesium Ferritin Lactate Dehydrogenase C-Reactive Protein NT-Pro-B Natriuret Pep Total Protein Albumin Triglycerides Arterial Blood Glucose Urine pH Ur Specific [place] Coronavirus (PCR) 03/30/21 03/30/21 03/30/21 05:36 06:03 11:32 WBC RBC Hgb Hct MCV MCHC RDW Plt Count Lymph % (Auto) [place] % (Auto) Lymph # (Auto) [place] # (Auto) Seg Neutrophils % Seg Neuts % (Manual) Lymphocytes % (Manual) Monocytes % (Manual) Nucleated RBC % Seg Neutrophils # Seg Neutrophils # Man Lymphocytes # (Manual) Monocytes # (Manual) PT INR APTT D-Dimer Heparin Anti-Xa Level ABG pH POC ABG pCO2 POC ABG pO2 ABG pO2 ABG HCO3 ABG O2 Saturation ABG Base Excess ABG Hemoglobin ABG Oxyhemoglobin ABG Sodium ABG Potassium ABG Glucose Oxyhemoglobin Carboxyhemoglobin Sodium Potassium Chloride Carbon Dioxide BUN Creatinine 0.5 L Glucose 127 H POC Glucose 130 H 183 H Lactic Acid Calcium Phosphorus Magnesium Ferritin Lactate Dehydrogenase C-Reactive Protein NT-Pro-B Natriuret Pep Total Protein Albumin Triglycerides Arterial Blood Glucose Urine pH Ur Specific [place] Coronavirus (PCR) 03/30/21 03/30/21 03/30/21 15:00 16:23 21:07 WBC RBC Hgb Hct MCV MCHC RDW Plt Count Lymph % (Auto) [place] % (Auto) Lymph # (Auto) [place] # (Auto) Seg Neutrophils % Seg Neuts % (Manual) Lymphocytes % (Manual) Monocytes % (Manual) Nucleated RBC % Seg Neutrophils # Seg Neutrophils # Man Lymphocytes # (Manual) Monocytes # (Manual) PT INR APTT D-Dimer Heparin Anti-Xa Level ABG pH POC ABG pCO2 POC ABG pO2 ABG pO2 67.2 L ABG HCO3 34.9 H ABG O2 Saturation ABG Base Excess 9.1 H ABG Hemoglobin 11.6 L ABG Oxyhemoglobin ABG Sodium ABG Potassium ABG Glucose Oxyhemoglobin 93.0 L Carboxyhemoglobin Sodium Potassium Chloride Carbon Dioxide BUN Creatinine Glucose POC Glucose 162 H 146 H Lactic Acid Calcium Phosphorus Magnesium Ferritin Lactate Dehydrogenase C-Reactive Protein NT-Pro-B Natriuret Pep Total Protein Albumin Triglycerides Arterial Blood Glucose Urine pH Ur Specific [place] Coronavirus (PCR) 03/30/21 03/31/21 03/31/21 23:23 05:44 11:19 WBC RBC Hgb Hct MCV MCHC RDW Plt Count Lymph % (Auto) [place] % (Auto) Lymph # (Auto) [place] # (Auto) Seg Neutrophils % Seg Neuts % (Manual) Lymphocytes % (Manual) Monocytes % (Manual) Nucleated RBC % Seg Neutrophils # Seg Neutrophils # Man Lymphocytes # (Manual) Monocytes # (Manual) PT INR APTT D-Dimer Heparin Anti-Xa Level ABG pH POC ABG pCO2 POC ABG pO2 ABG pO2 ABG HCO3 ABG O2 Saturation ABG Base Excess ABG Hemoglobin ABG Oxyhemoglobin ABG Sodium ABG Potassium ABG Glucose Oxyhemoglobin Carboxyhemoglobin Sodium Potassium Chloride Carbon Dioxide BUN Creatinine Glucose POC Glucose 138 H 180 H 178 H Lactic Acid Calcium Phosphorus Magnesium Ferritin Lactate Dehydrogenase C-Reactive Protein NT-Pro-B Natriuret Pep Total Protein Albumin Triglycerides Arterial Blood Glucose Urine pH Ur Specific [place] Coronavirus (PCR) 03/31/21 03/31/21 03/31/21 12:50 13:30 16:06 WBC RBC Hgb 11.3 L Hct 35.1 L MCV MCHC RDW 16.5 H Plt Count Lymph % (Auto) 7.6 L [place] % (Auto) 9.5 H Lymph # (Auto) 0.6 L [place] # (Auto) Seg Neutrophils % 78.3 H Seg Neuts % (Manual) Lymphocytes % (Manual) Monocytes % (Manual) Nucleated RBC % Seg Neutrophils # Seg Neutrophils # Man Lymphocytes # (Manual) Monocytes # (Manual) PT INR APTT D-Dimer Heparin Anti-Xa Level ABG pH POC ABG pCO2 POC ABG pO2 ABG pO2 99.4 H ABG HCO3 34.9 H ABG O2 Saturation ABG Base Excess 8.4 H ABG Hemoglobin 11.8 L ABG Oxyhemoglobin ABG Sodium ABG Potassium ABG Glucose Oxyhemoglobin Carboxyhemoglobin Sodium Potassium Chloride Carbon Dioxide BUN Creatinine Glucose POC Glucose 197 H Lactic Acid Calcium Phosphorus Magnesium Ferritin Lactate Dehydrogenase C-Reactive Protein NT-Pro-B Natriuret Pep Total Protein Albumin Triglycerides Arterial Blood Glucose Urine pH Ur Specific [place] Coronavirus (PCR) 03/31/21 04/01/21 04/01/21 20:51 05:37 07:16 WBC RBC 3.39 L Hgb 10.5 L Hct 31.6 L MCV MCHC RDW 16.1 H Plt Count Lymph % (Auto) [place] % (Auto) Lymph # (Auto) [place] # (Auto) Seg Neutrophils % Seg Neuts % (Manual) Lymphocytes % (Manual) Monocytes % (Manual) Nucleated RBC % Seg Neutrophils # Seg Neutrophils # Man Lymphocytes # (Manual) Monocytes # (Manual) PT INR APTT D-Dimer Heparin Anti-Xa Level ABG pH POC ABG pCO2 POC ABG pO2 ABG pO2 ABG HCO3 ABG O2 Saturation ABG Base Excess ABG Hemoglobin ABG Oxyhemoglobin ABG Sodium ABG Potassium ABG Glucose Oxyhemoglobin Carboxyhemoglobin Sodium Potassium Chloride Carbon Dioxide BUN Creatinine Glucose POC Glucose 140 H 128 H Lactic Acid Calcium Phosphorus Magnesium Ferritin Lactate Dehydrogenase C-Reactive Protein NT-Pro-B Natriuret Pep Total Protein Albumin Triglycerides Arterial Blood Glucose Urine pH Ur Specific [place] Coronavirus (PCR) 04/01/21 04/01/21 04/01/21 07:16 11:52 16:56 WBC RBC Hgb Hct MCV MCHC RDW Plt Count Lymph % (Auto) [place] % (Auto) Lymph # (Auto) [place] # (Auto) Seg Neutrophils % Seg Neuts % (Manual) Lymphocytes % (Manual) Monocytes % (Manual) Nucleated RBC % Seg Neutrophils # Seg Neutrophils # Man Lymphocytes # (Manual) Monocytes # (Manual) PT INR APTT D-Dimer Heparin Anti-Xa Level ABG pH POC ABG pCO2 POC ABG pO2 ABG pO2 ABG HCO3 ABG O2 Saturation ABG Base Excess ABG Hemoglobin ABG Oxyhemoglobin ABG Sodium ABG Potassium ABG Glucose Oxyhemoglobin Carboxyhemoglobin Sodium Potassium Chloride Carbon Dioxide BUN Creatinine 0.6 L Glucose 131 H POC Glucose 182 H 179 H Lactic Acid Calcium 8.3 L Phosphorus Magnesium Ferritin Lactate Dehydrogenase C-Reactive Protein NT-Pro-B Natriuret Pep Total Protein Albumin Triglycerides Arterial Blood Glucose Urine pH Ur Specific [place] Coronavirus (PCR) 04/01/21 04/01/21 04/02/21 21:30 23:40 04:26 WBC RBC 3.62 L Hgb 10.8 L Hct 33.9 L MCV MCHC RDW 16.0 H Plt Count Lymph % (Auto) [place] % (Auto) Lymph # (Auto) [place] # (Auto) Seg Neutrophils % Seg Neuts % (Manual) Lymphocytes % (Manual) Monocytes % (Manual) Nucleated RBC % Seg Neutrophils # Seg Neutrophils # Man Lymphocytes # (Manual) Monocytes # (Manual) PT INR APTT D-Dimer Heparin Anti-Xa Level ABG pH POC ABG pCO2 POC ABG pO2 ABG pO2 ABG HCO3 ABG O2 Saturation ABG Base Excess ABG Hemoglobin ABG Oxyhemoglobin ABG Sodium ABG Potassium ABG Glucose Oxyhemoglobin Carboxyhemoglobin Sodium Potassium Chloride Carbon Dioxide BUN Creatinine Glucose POC Glucose 131 H 129 H Lactic Acid Calcium Phosphorus Magnesium Ferritin Lactate Dehydrogenase C-Reactive Protein NT-Pro-B Natriuret Pep Total Protein Albumin Triglycerides Arterial Blood Glucose Urine pH Ur Specific [place] Coronavirus (PCR) 04/02/21 04/02/21 04/02/21 04:26 05:54 11:35 WBC RBC Hgb Hct MCV MCHC RDW Plt Count Lymph % (Auto) [place] % (Auto) Lymph # (Auto) [place] # (Auto) Seg Neutrophils % Seg Neuts % (Manual) Lymphocytes % (Manual) Monocytes % (Manual) Nucleated RBC % Seg Neutrophils # Seg Neutrophils # Man Lymphocytes # (Manual) Monocytes # (Manual) PT INR APTT D-Dimer Heparin Anti-Xa Level ABG pH POC ABG pCO2 POC ABG pO2 ABG pO2 ABG HCO3 ABG O2 Saturation ABG Base Excess ABG Hemoglobin ABG Oxyhemoglobin ABG Sodium ABG Potassium ABG Glucose Oxyhemoglobin Carboxyhemoglobin Sodium 136 L Potassium Chloride Carbon Dioxide BUN Creatinine 0.6 L Glucose 152 H POC Glucose 151 H 178 H Lactic Acid Calcium Phosphorus Magnesium Ferritin Lactate Dehydrogenase C-Reactive Protein NT-Pro-B Natriuret Pep Total Protein Albumin Triglycerides Arterial Blood Glucose Urine pH Ur Specific [place] Coronavirus (PCR) 04/02/21 04/02/21 04/02/21 16:11 21:09 23:38 WBC RBC Hgb Hct MCV MCHC RDW Plt Count Lymph % (Auto) [place] % (Auto) Lymph # (Auto) [place] # (Auto) Seg Neutrophils % Seg Neuts % (Manual) Lymphocytes % (Manual) Monocytes % (Manual) Nucleated RBC % Seg Neutrophils # Seg Neutrophils # Man Lymphocytes # (Manual) Monocytes # (Manual) PT INR APTT D-Dimer Heparin Anti-Xa Level ABG pH POC ABG pCO2 POC ABG pO2 ABG pO2 ABG HCO3 ABG O2 Saturation ABG Base Excess ABG Hemoglobin ABG Oxyhemoglobin ABG Sodium ABG Potassium ABG Glucose Oxyhemoglobin Carboxyhemoglobin Sodium Potassium Chloride Carbon Dioxide BUN Creatinine Glucose POC Glucose 186 H 145 H 152 H Lactic Acid Calcium Phosphorus Magnesium Ferritin Lactate Dehydrogenase C-Reactive Protein NT-Pro-B Natriuret Pep Total Protein Albumin Triglycerides Arterial Blood Glucose Urine pH Ur Specific [place] Coronavirus (PCR) 04/03/21 04/03/21 04/03/21 04:14 04:14 05:27 WBC RBC 3.62 L Hgb 11.0 L Hct 34.0 L MCV MCHC RDW 16.3 H Plt Count Lymph % (Auto) [place] % (Auto) Lymph # (Auto) [place] # (Auto) Seg Neutrophils % Seg Neuts % (Manual) Lymphocytes % (Manual) Monocytes % (Manual) Nucleated RBC % Seg Neutrophils # Seg Neutrophils # Man Lymphocytes # (Manual) Monocytes # (Manual) PT INR APTT D-Dimer Heparin Anti-Xa Level ABG pH POC ABG pCO2 POC ABG pO2 ABG pO2 ABG HCO3 ABG O2 Saturation ABG Base Excess ABG Hemoglobin ABG Oxyhemoglobin ABG Sodium ABG Potassium ABG Glucose Oxyhemoglobin Carboxyhemoglobin Sodium Potassium Chloride Carbon Dioxide 31 H BUN Creatinine 0.6 L Glucose 155 H POC Glucose 165 H Lactic Acid Calcium Phosphorus Magnesium Ferritin Lactate Dehydrogenase C-Reactive Protein NT-Pro-B Natriuret Pep Total Protein Albumin Triglycerides Arterial Blood Glucose Urine pH Ur Specific [place] Coronavirus (PCR) 04/03/21 04/03/21 04/03/21 11:02 16:19 19:45 WBC RBC Hgb Hct MCV MCHC RDW Plt Count Lymph % (Auto) [place] % (Auto) Lymph # (Auto) [place] # (Auto) Seg Neutrophils % Seg Neuts % (Manual) Lymphocytes % (Manual) Monocytes % (Manual) Nucleated RBC % Seg Neutrophils # Seg Neutrophils # Man Lymphocytes # (Manual) Monocytes # (Manual) PT INR APTT D-Dimer Heparin Anti-Xa Level ABG pH POC ABG pCO2 POC ABG pO2 ABG pO2 ABG HCO3 ABG O2 Saturation ABG Base Excess ABG Hemoglobin ABG Oxyhemoglobin ABG Sodium ABG Potassium ABG Glucose Oxyhemoglobin Carboxyhemoglobin Sodium Potassium Chloride Carbon Dioxide BUN Creatinine Glucose POC Glucose 161 H 180 H 136 H Lactic Acid Calcium Phosphorus Magnesium Ferritin Lactate Dehydrogenase C-Reactive Protein NT-Pro-B Natriuret Pep Total Protein Albumin Triglycerides Arterial Blood Glucose Urine pH Ur Specific [place] Coronavirus (PCR) 04/04/21 04/04/21 04/04/21 00:21 04:33 04:33 WBC 13.1 H RBC 3.49 L Hgb 10.3 L Hct 32.7 L MCV MCHC RDW 16.1 H Plt Count Lymph % (Auto) [place] % (Auto) Lymph # (Auto) [place] # (Auto) Seg Neutrophils % Seg Neuts % (Manual) Lymphocytes % (Manual) Monocytes % (Manual) Nucleated RBC % Seg Neutrophils # Seg Neutrophils # Man Lymphocytes # (Manual) Monocytes # (Manual) PT INR APTT D-Dimer Heparin Anti-Xa Level ABG pH POC ABG pCO2 POC ABG pO2 ABG pO2 ABG HCO3 ABG O2 Saturation ABG Base Excess ABG Hemoglobin ABG Oxyhemoglobin ABG Sodium ABG Potassium ABG Glucose Oxyhemoglobin Carboxyhemoglobin Sodium Potassium Chloride Carbon Dioxide 31 H BUN Creatinine 0.4 L Glucose 153 H POC Glucose 140 H Lactic Acid Calcium Phosphorus Magnesium Ferritin Lactate Dehydrogenase C-Reactive Protein NT-Pro-B Natriuret Pep Total Protein Albumin Triglycerides Arterial Blood Glucose Urine pH Ur Specific [place] Coronavirus (PCR) 04/04/21 04/04/21 04/04/21 05:16 11:39 17:22 WBC RBC Hgb Hct MCV MCHC RDW Plt Count Lymph % (Auto) [place] % (Auto) Lymph # (Auto) [place] # (Auto) Seg Neutrophils % Seg Neuts % (Manual) Lymphocytes % (Manual) Monocytes % (Manual) Nucleated RBC % Seg Neutrophils # Seg Neutrophils # Man Lymphocytes # (Manual) Monocytes # (Manual) PT INR APTT D-Dimer Heparin Anti-Xa Level ABG pH POC ABG pCO2 POC ABG pO2 ABG pO2 ABG HCO3 ABG O2 Saturation ABG Base Excess ABG Hemoglobin ABG Oxyhemoglobin ABG Sodium ABG Potassium ABG Glucose Oxyhemoglobin Carboxyhemoglobin Sodium Potassium Chloride Carbon Dioxide BUN Creatinine Glucose POC Glucose 152 H 154 H 198 H Lactic Acid Calcium Phosphorus Magnesium Ferritin Lactate Dehydrogenase C-Reactive Protein NT-Pro-B Natriuret Pep Total Protein Albumin Triglycerides Arterial Blood Glucose Urine pH Ur Specific [place] Coronavirus (PCR) 04/04/21 04/04/21 04/05/21 20:14 23:16 04:15 WBC RBC 3.21 L Hgb 10.0 L Hct 30.3 L MCV MCHC RDW 16.4 H Plt Count Lymph % (Auto) [place] % (Auto) Lymph # (Auto) [place] # (Auto) Seg Neutrophils % Seg Neuts % (Manual) Lymphocytes % (Manual) Monocytes % (Manual) Nucleated RBC % Seg Neutrophils # Seg Neutrophils # Man Lymphocytes # (Manual) Monocytes # (Manual) PT INR APTT D-Dimer Heparin Anti-Xa Level ABG pH POC ABG pCO2 POC ABG pO2 ABG pO2 ABG HCO3 ABG O2 Saturation ABG Base Excess ABG Hemoglobin ABG Oxyhemoglobin ABG Sodium ABG Potassium ABG Glucose Oxyhemoglobin Carboxyhemoglobin Sodium Potassium Chloride Carbon Dioxide BUN Creatinine Glucose POC Glucose 161 H 139 H Lactic Acid Calcium Phosphorus Magnesium Ferritin Lactate Dehydrogenase C-Reactive Protein NT-Pro-B Natriuret Pep Total Protein Albumin Triglycerides Arterial Blood Glucose Urine pH Ur Specific [place] Coronavirus (PCR) 04/05/21 04/05/21 04/05/21 04:15 05:34 12:09 WBC RBC Hgb Hct MCV MCHC RDW Plt Count Lymph % (Auto) [place] % (Auto) Lymph # (Auto) [place] # (Auto) Seg Neutrophils % Seg Neuts % (Manual) Lymphocytes % (Manual) Monocytes % (Manual) Nucleated RBC % Seg Neutrophils # Seg Neutrophils # Man Lymphocytes # (Manual) Monocytes # (Manual) PT INR APTT D-Dimer Heparin Anti-Xa Level ABG pH POC ABG pCO2 POC ABG pO2 ABG pO2 ABG HCO3 ABG O2 Saturation ABG Base Excess ABG Hemoglobin ABG Oxyhemoglobin ABG Sodium ABG Potassium ABG Glucose Oxyhemoglobin Carboxyhemoglobin Sodium Potassium Chloride 97.6 L Carbon Dioxide 32 H BUN Creatinine 0.5 L Glucose 147 H POC Glucose 145 H 173 H Lactic Acid Calcium Phosphorus Magnesium Ferritin Lactate Dehydrogenase C-Reactive Protein NT-Pro-B Natriuret Pep Total Protein Albumin Triglycerides Arterial Blood Glucose Urine pH Ur Specific [place] Coronavirus (PCR) 04/05/21 04/05/21 04/05/21 17:35 21:07 23:15 WBC RBC Hgb Hct MCV MCHC RDW Plt Count Lymph % (Auto) [place] % (Auto) Lymph # (Auto) [place] # (Auto) Seg Neutrophils % Seg Neuts % (Manual) Lymphocytes % (Manual) Monocytes % (Manual) Nucleated RBC % Seg Neutrophils # Seg Neutrophils # Man Lymphocytes # (Manual) Monocytes # (Manual) PT INR APTT D-Dimer Heparin Anti-Xa Level ABG pH POC ABG pCO2 POC ABG pO2 ABG pO2 ABG HCO3 ABG O2 Saturation ABG Base Excess ABG Hemoglobin ABG Oxyhemoglobin ABG Sodium ABG Potassium ABG Glucose Oxyhemoglobin Carboxyhemoglobin Sodium Potassium Chloride Carbon Dioxide BUN Creatinine Glucose POC Glucose 143 H 157 H 171 H Lactic Acid Calcium Phosphorus Magnesium Ferritin Lactate Dehydrogenase C-Reactive Protein NT-Pro-B Natriuret Pep Total Protein Albumin Triglycerides Arterial Blood Glucose Urine pH Ur Specific [place] Coronavirus (PCR) 04/06/21 04/06/21 04/06/21 04:49 05:14 11:42 WBC RBC Hgb Hct MCV MCHC RDW Plt Count Lymph % (Auto) [place] % (Auto) Lymph # (Auto) [place] # (Auto) Seg Neutrophils % Seg Neuts % (Manual) Lymphocytes % (Manual) Monocytes % (Manual) Nucleated RBC % Seg Neutrophils # Seg Neutrophils # Man Lymphocytes # (Manual) Monocytes # (Manual) PT INR APTT D-Dimer Heparin Anti-Xa Level ABG pH POC ABG pCO2 57.4 H POC ABG pO2 55.1 L ABG pO2 ABG HCO3 ABG O2 Saturation ABG Base Excess ABG Hemoglobin 11.5 L ABG Oxyhemoglobin 87.5 L ABG Sodium ABG Potassium ABG Glucose Oxyhemoglobin Carboxyhemoglobin Sodium Potassium Chloride Carbon Dioxide BUN Creatinine Glucose POC Glucose 145 H 171 H Lactic Acid Calcium Phosphorus Magnesium Ferritin Lactate Dehydrogenase C-Reactive Protein NT-Pro-B Natriuret Pep Total Protein Albumin Triglycerides Arterial Blood Glucose Urine pH Ur Specific [place] Coronavirus (PCR) 04/06/21 04/06/21 04/06/21 11:50 15:36 15:36 WBC RBC Hgb 10.4 L Hct 32.5 L MCV MCHC RDW Plt Count 444 H Lymph % (Auto) [place] % (Auto) Lymph # (Auto) [place] # (Auto) Seg Neutrophils % Seg Neuts % (Manual) Lymphocytes % (Manual) Monocytes % (Manual) Nucleated RBC % Seg Neutrophils # Seg Neutrophils # Man Lymphocytes # (Manual) Monocytes # (Manual) PT INR APTT 37.1 H D-Dimer Heparin Anti-Xa Level ABG pH 7.341 L POC ABG pCO2 POC ABG pO2 ABG pO2 108.9 H ABG HCO3 38.9 H ABG O2 Saturation ABG Base Excess 10.6 H ABG Hemoglobin 11.5 L ABG Oxyhemoglobin ABG Sodium ABG Potassium ABG Glucose Oxyhemoglobin Carboxyhemoglobin Sodium Potassium Chloride Carbon Dioxide BUN Creatinine Glucose POC Glucose Lactic Acid Calcium Phosphorus Magnesium Ferritin Lactate Dehydrogenase C-Reactive Protein NT-Pro-B Natriuret Pep Total Protein Albumin Triglycerides Arterial Blood Glucose Urine pH Ur Specific [place] Coronavirus (PCR) 04/06/21 04/07/21 04/07/21 17:57 00:30 00:32 WBC RBC Hgb Hct MCV MCHC RDW Plt Count Lymph % (Auto) [place] % (Auto) Lymph # (Auto) [place] # (Auto) Seg Neutrophils % Seg Neuts % (Manual) Lymphocytes % (Manual) Monocytes % (Manual) Nucleated RBC % Seg Neutrophils # Seg Neutrophils # Man Lymphocytes # (Manual) Monocytes # (Manual) PT INR APTT D-Dimer Heparin Anti-Xa Level < 0.10 L ABG pH POC ABG pCO2 POC ABG pO2 ABG pO2 ABG HCO3 ABG O2 Saturation ABG Base Excess ABG Hemoglobin ABG Oxyhemoglobin ABG Sodium ABG Potassium ABG Glucose Oxyhemoglobin Carboxyhemoglobin Sodium Potassium Chloride Carbon Dioxide BUN Creatinine Glucose POC Glucose 151 H 149 H Lactic Acid Calcium Phosphorus Magnesium Ferritin Lactate Dehydrogenase C-Reactive Protein NT-Pro-B Natriuret Pep Total Protein Albumin Triglycerides Arterial Blood Glucose Urine pH Ur Specific [place] Coronavirus (PCR) 04/07/21 04/07/21 04/07/21 05:34 06:08 06:08 WBC RBC 3.20 L Hgb 9.6 L Hct 29.8 L MCV MCHC RDW 16.0 H Plt Count 455 H Lymph % (Auto) [place] % (Auto) Lymph # (Auto) [place] # (Auto) Seg Neutrophils % Seg Neuts % (Manual) Lymphocytes % (Manual) Monocytes % (Manual) Nucleated RBC % Seg Neutrophils # Seg Neutrophils # Man Lymphocytes # (Manual) Monocytes # (Manual) PT INR APTT D-Dimer Heparin Anti-Xa Level ABG pH POC ABG pCO2 POC ABG pO2 ABG pO2 ABG HCO3 ABG O2 Saturation ABG Base Excess ABG Hemoglobin ABG Oxyhemoglobin ABG Sodium ABG Potassium ABG Glucose Oxyhemoglobin Carboxyhemoglobin Sodium Potassium Chloride Carbon Dioxide 35 H BUN Creatinine 0.5 L Glucose 216 H POC Glucose 182 H Lactic Acid Calcium Phosphorus Magnesium Ferritin Lactate Dehydrogenase C-Reactive Protein NT-Pro-B Natriuret Pep Total Protein Albumin Triglycerides Arterial Blood Glucose Urine pH Ur Specific [place] Coronavirus (PCR) 04/07/21 04/07/21 04/07/21 07:55 11:57 17:12 WBC RBC Hgb Hct MCV MCHC RDW Plt Count Lymph % (Auto) [place] % (Auto) Lymph # (Auto) [place] # (Auto) Seg Neutrophils % Seg Neuts % (Manual) Lymphocytes % (Manual) Monocytes % (Manual) Nucleated RBC % Seg Neutrophils # Seg Neutrophils # Man Lymphocytes # (Manual) Monocytes # (Manual) PT INR APTT D-Dimer Heparin Anti-Xa Level < 0.10 L ABG pH POC ABG pCO2 POC ABG pO2 ABG pO2 ABG HCO3 ABG O2 Saturation ABG Base Excess ABG Hemoglobin ABG Oxyhemoglobin ABG Sodium ABG Potassium ABG Glucose Oxyhemoglobin Carboxyhemoglobin Sodium Potassium Chloride Carbon Dioxide BUN Creatinine Glucose POC Glucose 182 H 165 H Lactic Acid Calcium Phosphorus Magnesium Ferritin Lactate Dehydrogenase C-Reactive Protein NT-Pro-B Natriuret Pep Total Protein Albumin Triglycerides Arterial Blood Glucose Urine pH Ur Specific [place] Coronavirus (PCR) 04/07/21 04/08/21 04/08/21 19:55 00:16 03:57 WBC RBC Hgb Hct MCV MCHC RDW Plt Count Lymph % (Auto) [place] % (Auto) Lymph # (Auto) [place] # (Auto) Seg Neutrophils % Seg Neuts % (Manual) Lymphocytes % (Manual) Monocytes % (Manual) Nucleated RBC % Seg Neutrophils # Seg Neutrophils # Man Lymphocytes # (Manual) Monocytes # (Manual) PT INR APTT D-Dimer Heparin Anti-Xa Level < 0.10 L ABG pH POC ABG pCO2 POC ABG pO2 ABG pO2 ABG HCO3 ABG O2 Saturation ABG Base Excess ABG Hemoglobin ABG Oxyhemoglobin ABG Sodium ABG Potassium ABG Glucose Oxyhemoglobin Carboxyhemoglobin Sodium Potassium 5.8 H Chloride 95.5 L Carbon Dioxide 37 H BUN Creatinine 0.5 L Glucose 161 H POC Glucose 175 H Lactic Acid Calcium Phosphorus Magnesium Ferritin Lactate Dehydrogenase C-Reactive Protein NT-Pro-B Natriuret Pep Total Protein Albumin Triglycerides Arterial Blood Glucose Urine pH Ur Specific [place] Coronavirus (PCR) 04/08/21 04/08/21 04/08/21 04:00 05:43 09:26 WBC RBC 3.25 L Hgb 9.9 L Hct 30.8 L MCV 95 H MCHC RDW 16.0 H Plt Count 487 H Lymph % (Auto) [place] % (Auto) Lymph # (Auto) [place] # (Auto) Seg Neutrophils % Seg Neuts % (Manual) Lymphocytes % (Manual) Monocytes % (Manual) Nucleated RBC % Seg Neutrophils # Seg Neutrophils # Man Lymphocytes # (Manual) Monocytes # (Manual) PT INR APTT D-Dimer Heparin Anti-Xa Level ABG pH POC ABG pCO2 POC ABG pO2 ABG pO2 ABG HCO3 ABG O2 Saturation ABG Base Excess ABG Hemoglobin ABG Oxyhemoglobin ABG Sodium ABG Potassium ABG Glucose Oxyhemoglobin Carboxyhemoglobin Sodium Potassium Chloride Carbon Dioxide BUN Creatinine Glucose POC Glucose 162 H 164 H Lactic Acid Calcium Phosphorus Magnesium Ferritin Lactate Dehydrogenase C-Reactive Protein NT-Pro-B Natriuret Pep Total Protein Albumin Triglycerides Arterial Blood Glucose Urine pH Ur Specific [place] Coronavirus (PCR) 04/08/21 04/08/21 04/08/21 11:53 17:19 20:35 WBC RBC Hgb Hct MCV MCHC RDW Plt Count Lymph % (Auto) [place] % (Auto) Lymph # (Auto) [place] # (Auto) Seg Neutrophils % Seg Neuts % (Manual) Lymphocytes % (Manual) Monocytes % (Manual) Nucleated RBC % Seg Neutrophils # Seg Neutrophils # Man Lymphocytes # (Manual) Monocytes # (Manual) PT INR APTT D-Dimer Heparin Anti-Xa Level ABG pH POC ABG pCO2 POC ABG pO2 ABG pO2 ABG HCO3 ABG O2 Saturation ABG Base Excess ABG Hemoglobin ABG Oxyhemoglobin ABG Sodium ABG Potassium ABG Glucose Oxyhemoglobin Carboxyhemoglobin Sodium Potassium Chloride Carbon Dioxide BUN Creatinine Glucose POC Glucose 170 H 157 H 190 H Lactic Acid Calcium Phosphorus Magnesium Ferritin Lactate Dehydrogenase C-Reactive Protein NT-Pro-B Natriuret Pep Total Protein Albumin Triglycerides Arterial Blood Glucose Urine pH Ur Specific [place] Coronavirus (PCR) 04/08/21 04/09/21 04/09/21 23:52 04:21 04:21 WBC 11.4 H RBC 2.97 L Hgb 8.9 L Hct 27.8 L MCV MCHC RDW 15.8 H Plt Count 485 H Lymph % (Auto) [place] % (Auto) Lymph # (Auto) [place] # (Auto) Seg Neutrophils % Seg Neuts % (Manual) Lymphocytes % (Manual) Monocytes % (Manual) Nucleated RBC % Seg Neutrophils # Seg Neutrophils # Man Lymphocytes # (Manual) Monocytes # (Manual) PT INR APTT D-Dimer Heparin Anti-Xa Level ABG pH POC ABG pCO2 POC ABG pO2 ABG pO2 ABG HCO3 ABG O2 Saturation ABG Base Excess ABG Hemoglobin ABG Oxyhemoglobin ABG Sodium ABG Potassium ABG Glucose Oxyhemoglobin Carboxyhemoglobin Sodium Potassium Chloride 97.1 L Carbon Dioxide 40 H BUN 21 H Creatinine 0.5 L Glucose 149 H POC Glucose 170 H Lactic Acid Calcium Phosphorus 1.90 L D Magnesium Ferritin Lactate Dehydrogenase C-Reactive Protein NT-Pro-B Natriuret Pep Total Protein Albumin Triglycerides Arterial Blood Glucose Urine pH Ur Specific [place] Coronavirus (PCR) 04/09/21 04/09/21 04/09/21 05:27 11:55 17:11 WBC RBC Hgb Hct MCV MCHC RDW Plt Count Lymph % (Auto) [place] % (Auto) Lymph # (Auto) [place] # (Auto) Seg Neutrophils % Seg Neuts % (Manual) Lymphocytes % (Manual) Monocytes % (Manual) Nucleated RBC % Seg Neutrophils # Seg Neutrophils # Man Lymphocytes # (Manual) Monocytes # (Manual) PT INR APTT D-Dimer Heparin Anti-Xa Level ABG pH POC ABG pCO2 POC ABG pO2 ABG pO2 ABG HCO3 ABG O2 Saturation ABG Base Excess ABG Hemoglobin ABG Oxyhemoglobin ABG Sodium ABG Potassium ABG Glucose Oxyhemoglobin Carboxyhemoglobin Sodium Potassium Chloride Carbon Dioxide BUN Creatinine Glucose POC Glucose 144 H 190 H 163 H Lactic Acid Calcium Phosphorus Magnesium Ferritin Lactate Dehydrogenase C-Reactive Protein NT-Pro-B Natriuret Pep Total Protein Albumin Triglycerides Arterial Blood Glucose Urine pH Ur Specific [place] Coronavirus (PCR) 04/09/21 04/09/21 04/09/21 20:10 21:12 23:33 WBC RBC Hgb Hct MCV MCHC RDW Plt Count Lymph % (Auto) [place] % (Auto) Lymph # (Auto) [place] # (Auto) Seg Neutrophils % Seg Neuts % (Manual) Lymphocytes % (Manual) Monocytes % (Manual) Nucleated RBC % Seg Neutrophils # Seg Neutrophils # Man Lymphocytes # (Manual) Monocytes # (Manual) PT INR APTT D-Dimer Heparin Anti-Xa Level ABG pH POC ABG pCO2 POC ABG pO2 ABG pO2 68.1 L ABG HCO3 41.3 H ABG O2 Saturation ABG Base Excess 14.6 H ABG Hemoglobin 10.2 L ABG Oxyhemoglobin ABG Sodium ABG Potassium ABG Glucose Oxyhemoglobin 94.7 L Carboxyhemoglobin Sodium Potassium Chloride Carbon Dioxide BUN Creatinine Glucose POC Glucose 163 H 164 H Lactic Acid Calcium Phosphorus Magnesium Ferritin Lactate Dehydrogenase C-Reactive Protein NT-Pro-B Natriuret Pep Total Protein Albumin Triglycerides Arterial Blood Glucose Urine pH Ur Specific [place] Coronavirus (PCR) 04/10/21 04/10/21 04/10/21 05:26 11:41 13:00 WBC RBC 3.09 L Hgb 9.3 L Hct 28.3 L MCV MCHC RDW 15.8 H Plt Count 480 H Lymph % (Auto) [place] % (Auto) Lymph # (Auto) [place] # (Auto) Seg Neutrophils % Seg Neuts % (Manual) Lymphocytes % (Manual) Monocytes % (Manual) Nucleated RBC % Seg Neutrophils # Seg Neutrophils # Man Lymphocytes # (Manual) Monocytes # (Manual) PT INR APTT D-Dimer Heparin Anti-Xa Level ABG pH POC ABG pCO2 POC ABG pO2 ABG pO2 ABG HCO3 ABG O2 Saturation ABG Base Excess ABG Hemoglobin ABG Oxyhemoglobin ABG Sodium ABG Potassium ABG Glucose Oxyhemoglobin Carboxyhemoglobin Sodium Potassium Chloride Carbon Dioxide BUN Creatinine Glucose POC Glucose 172 H 150 H Lactic Acid Calcium Phosphorus Magnesium Ferritin Lactate Dehydrogenase C-Reactive Protein NT-Pro-B Natriuret Pep Total Protein Albumin Triglycerides Arterial Blood Glucose Urine pH Ur Specific [place] Coronavirus (PCR) 04/10/21 04/10/21 04/10/21 13:00 17:46 21:37 WBC RBC Hgb Hct MCV MCHC RDW Plt Count Lymph % (Auto) [place] % (Auto) Lymph # (Auto) [place] # (Auto) Seg Neutrophils % Seg Neuts % (Manual) Lymphocytes % (Manual) Monocytes % (Manual) Nucleated RBC % Seg Neutrophils # Seg Neutrophils # Man Lymphocytes # (Manual) Monocytes # (Manual) PT INR APTT D-Dimer Heparin Anti-Xa Level ABG pH POC ABG pCO2 POC ABG pO2 ABG pO2 ABG HCO3 ABG O2 Saturation ABG Base Excess ABG Hemoglobin ABG Oxyhemoglobin ABG Sodium ABG Potassium ABG Glucose Oxyhemoglobin Carboxyhemoglobin Sodium Potassium Chloride 96.4 L Carbon Dioxide 34 H BUN Creatinine 0.5 L Glucose 165 H POC Glucose 165 H 166 H Lactic Acid Calcium Phosphorus Magnesium Ferritin Lactate Dehydrogenase C-Reactive Protein NT-Pro-B Natriuret Pep Total Protein Albumin Triglycerides Arterial Blood Glucose Urine pH Ur Specific [place] Coronavirus (PCR) 04/10/21 04/11/21 04/11/21 23:56 04:30 05:39 WBC 11.5 H RBC 3.02 L Hgb 8.9 L Hct 27.8 L MCV MCHC RDW 16.0 H Plt Count 505 H Lymph % (Auto) [place] % (Auto) Lymph # (Auto) [place] # (Auto) Seg Neutrophils % Seg Neuts % (Manual) Lymphocytes % (Manual) Monocytes % (Manual) Nucleated RBC % Seg Neutrophils # Seg Neutrophils # Man Lymphocytes # (Manual) Monocytes # (Manual) PT INR APTT D-Dimer Heparin Anti-Xa Level ABG pH POC ABG pCO2 POC ABG pO2 ABG pO2 ABG HCO3 ABG O2 Saturation ABG Base Excess ABG Hemoglobin ABG Oxyhemoglobin ABG Sodium ABG Potassium ABG Glucose Oxyhemoglobin Carboxyhemoglobin Sodium Potassium Chloride Carbon Dioxide BUN Creatinine Glucose POC Glucose 156 H 164 H Lactic Acid Calcium Phosphorus Magnesium Ferritin Lactate Dehydrogenase C-Reactive Protein NT-Pro-B Natriuret Pep Total Protein Albumin Triglycerides Arterial Blood Glucose Urine pH Ur Specific [place] Coronavirus (PCR) 04/11/21 04/11/2104/11/22 06:47 06:47 11:29 WBC RBC 3.35 L Hgb 9.8 L Hct 30.7 L MCV MCHC RDW 16.3 H Plt Count 520 H Lymph % (Auto) [place] % (Auto) Lymph # (Auto) [place] # (Auto) Seg Neutrophils % Seg Neuts % (Manual) 76.0 H Lymphocytes % (Manual) 10.0 L Monocytes % (Manual) Nucleated RBC % Seg Neutrophils # Seg Neutrophils # Man 8.3 H Lymphocytes # (Manual) 1.1 L Monocytes # (Manual) PT INR APTT D-Dimer Heparin Anti-Xa Level ABG pH POC ABG pCO2 POC ABG pO2 ABG pO2 ABG HCO3 ABG O2 Saturation ABG Base Excess ABG Hemoglobin ABG Oxyhemoglobin ABG Sodium ABG Potassium ABG Glucose Oxyhemoglobin Carboxyhemoglobin Sodium Potassium Chloride 97.7 L Carbon Dioxide 34 H BUN Creatinine 0.4 L Glucose 178 H POC Glucose 170 H Lactic Acid Calcium Phosphorus Magnesium Ferritin Lactate Dehydrogenase C-Reactive Protein NT-Pro-B Natriuret Pep Total Protein Albumin Triglycerides Arterial Blood Glucose Urine pH Ur Specific [place] Coronavirus (PCR) 04/11/21 04/11/21 04/11/21 18:17 18:17 18:17 WBC RBC 3.22 L Hgb 9.5 L Hct 29.8 L MCV MCHC RDW 16.0 H Plt Count Lymph % (Auto) [place] % (Auto) Lymph # (Auto) [place] # (Auto) Seg Neutrophils % Seg Neuts % (Manual) Lymphocytes % (Manual) Monocytes % (Manual) Nucleated RBC % Seg Neutrophils # Seg Neutrophils # Man Lymphocytes # (Manual) Monocytes # (Manual) PT INR APTT 61.1 H* D-Dimer Heparin Anti-Xa Level ABG pH POC ABG pCO2 POC ABG pO2 ABG pO2 ABG HCO3 ABG O2 Saturation ABG Base Excess ABG Hemoglobin ABG Oxyhemoglobin ABG Sodium ABG Potassium ABG Glucose Oxyhemoglobin Carboxyhemoglobin Sodium Potassium Chloride Carbon Dioxide BUN Creatinine 0.3 L Glucose POC Glucose Lactic Acid Calcium Phosphorus Magnesium Ferritin Lactate Dehydrogenase C-Reactive Protein NT-Pro-B Natriuret Pep Total Protein Albumin Triglycerides Arterial Blood Glucose Urine pH Ur Specific [place] Coronavirus (PCR) 04/11/21 04/12/21 04/12/21 18:25 00:19 05:11 WBC RBC 2.92 L Hgb 8.6 L Hct 26.9 L MCV MCHC RDW 16.3 H Plt Count 460 H Lymph % (Auto) [place] % (Auto) Lymph # (Auto) [place] # (Auto) Seg Neutrophils % Seg Neuts % (Manual) Lymphocytes % (Manual) Monocytes % (Manual) Nucleated RBC % Seg Neutrophils # Seg Neutrophils # Man Lymphocytes # (Manual) Monocytes # (Manual) PT INR APTT D-Dimer Heparin Anti-Xa Level ABG pH POC ABG pCO2 POC ABG pO2 ABG pO2 ABG HCO3 ABG O2 Saturation ABG Base Excess ABG Hemoglobin ABG Oxyhemoglobin ABG Sodium ABG Potassium ABG Glucose Oxyhemoglobin Carboxyhemoglobin Sodium Potassium Chloride Carbon Dioxide BUN Creatinine Glucose POC Glucose 167 H 128 H Lactic Acid Calcium Phosphorus Magnesium Ferritin Lactate Dehydrogenase C-Reactive Protein NT-Pro-B Natriuret Pep Total Protein Albumin Triglycerides Arterial Blood Glucose Urine pH Ur Specific [place] Coronavirus (PCR) 04/12/21 04/12/21 04/12/21 05:11 05:11 06:23 WBC RBC Hgb Hct MCV MCHC RDW Plt Count Lymph % (Auto) [place] % (Auto) Lymph # (Auto) [place] # (Auto) Seg Neutrophils % Seg Neuts % (Manual) Lymphocytes % (Manual) Monocytes % (Manual) Nucleated RBC % Seg Neutrophils # Seg Neutrophils # Man Lymphocytes # (Manual) Monocytes # (Manual) PT INR APTT D-Dimer Heparin Anti-Xa Level 1.03 H ABG pH POC ABG pCO2 POC ABG pO2 ABG pO2 ABG HCO3 ABG O2 Saturation ABG Base Excess ABG Hemoglobin ABG Oxyhemoglobin ABG Sodium ABG Potassium ABG Glucose Oxyhemoglobin Carboxyhemoglobin Sodium Potassium Chloride Carbon Dioxide 34 H BUN Creatinine 0.3 L Glucose 153 H POC Glucose 162 H Lactic Acid Calcium Phosphorus Magnesium Ferritin Lactate Dehydrogenase C-Reactive Protein NT-Pro-B Natriuret Pep Total Protein Albumin Triglycerides Arterial Blood Glucose Urine pH Ur Specific [place] Coronavirus (PCR) 04/12/21 04/12/21 04/12/21 09:45 11:08 15:56 WBC RBC Hgb Hct MCV MCHC RDW Plt Count Lymph % (Auto) [place] % (Auto) Lymph # (Auto) [place] # (Auto) Seg Neutrophils % Seg Neuts % (Manual) Lymphocytes % (Manual) Monocytes % (Manual) Nucleated RBC % Seg Neutrophils # Seg Neutrophils # Man Lymphocytes # (Manual) Monocytes # (Manual) PT INR APTT D-Dimer Heparin Anti-Xa Level ABG pH POC ABG pCO2 POC ABG pO2 ABG pO2 70.8 L ABG HCO3 41.0 H ABG O2 Saturation ABG Base Excess 13.7 H ABG Hemoglobin 8.3 L ABG Oxyhemoglobin ABG Sodium ABG Potassium ABG Glucose Oxyhemoglobin 94.0 L Carboxyhemoglobin Sodium Potassium Chloride Carbon Dioxide BUN Creatinine Glucose POC Glucose 174 H 146 H Lactic Acid Calcium Phosphorus Magnesium Ferritin Lactate Dehydrogenase C-Reactive Protein NT-Pro-B Natriuret Pep Total Protein Albumin Triglycerides Arterial Blood Glucose Urine pH Ur Specific [place] Coronavirus (PCR) 04/12/21 04/12/21 04/13/21 21:55 23:25 04:34 WBC 12.5 H RBC 2.97 L Hgb 8.9 L Hct 27.3 L MCV MCHC RDW 16.4 H Plt Count 470 H Lymph % (Auto) [place] % (Auto) Lymph # (Auto) [place] # (Auto) Seg Neutrophils % Seg Neuts % (Manual) Lymphocytes % (Manual) Monocytes % (Manual) Nucleated RBC % Seg Neutrophils # Seg Neutrophils # Man Lymphocytes # (Manual) Monocytes # (Manual) PT INR APTT D-Dimer Heparin Anti-Xa Level ABG pH POC ABG pCO2 POC ABG pO2 ABG pO2 ABG HCO3 ABG O2 Saturation ABG Base Excess ABG Hemoglobin ABG Oxyhemoglobin ABG Sodium ABG Potassium ABG Glucose Oxyhemoglobin Carboxyhemoglobin Sodium Potassium Chloride Carbon Dioxide BUN Creatinine Glucose POC Glucose 142 H 170 H Lactic Acid Calcium Phosphorus Magnesium Ferritin Lactate Dehydrogenase C-Reactive Protein NT-Pro-B Natriuret Pep Total Protein Albumin Triglycerides Arterial Blood Glucose Urine pH Ur Specific [place] Coronavirus (PCR) 04/13/21 04/13/21 04/13/21 04:34 05:17 11:14 WBC RBC Hgb Hct MCV MCHC RDW Plt Count Lymph % (Auto) [place] % (Auto) Lymph # (Auto) [place] # (Auto) Seg Neutrophils % Seg Neuts % (Manual) Lymphocytes % (Manual) Monocytes % (Manual) Nucleated RBC % Seg Neutrophils # Seg Neutrophils # Man Lymphocytes # (Manual) Monocytes # (Manual) PT INR APTT D-Dimer Heparin Anti-Xa Level ABG pH POC ABG pCO2 POC ABG pO2 ABG pO2 ABG HCO3 ABG O2 Saturation ABG Base Excess ABG Hemoglobin ABG Oxyhemoglobin ABG Sodium ABG Potassium ABG Glucose Oxyhemoglobin Carboxyhemoglobin Sodium Potassium Chloride 96.6 L Carbon Dioxide 41 H* D BUN Creatinine 0.3 L Glucose 171 H POC Glucose 141 H 149 H Lactic Acid Calcium Phosphorus Magnesium Ferritin Lactate Dehydrogenase C-Reactive Protein NT-Pro-B Natriuret Pep Total Protein Albumin Triglycerides Arterial Blood Glucose Urine pH Ur Specific [place] Coronavirus (PCR) 04/13/21 04/13/21 04/14/21 15:51 23:35 04:32 WBC 13.8 H RBC 2.64 L Hgb 8.0 L Hct 24.1 L MCV MCHC RDW 16.1 H Plt Count Lymph % (Auto) [place] % (Auto) Lymph # (Auto) [place] # (Auto) Seg Neutrophils % Seg Neuts % (Manual) Lymphocytes % (Manual) Monocytes % (Manual) Nucleated RBC % Seg Neutrophils # Seg Neutrophils # Man Lymphocytes # (Manual) Monocytes # (Manual) PT INR APTT D-Dimer Heparin Anti-Xa Level ABG pH POC ABG pCO2 POC ABG pO2 ABG pO2 ABG HCO3 ABG O2 Saturation ABG Base Excess ABG Hemoglobin ABG Oxyhemoglobin ABG Sodium ABG Potassium ABG Glucose Oxyhemoglobin Carboxyhemoglobin Sodium Potassium Chloride Carbon Dioxide BUN Creatinine Glucose POC Glucose 136 H 167 H Lactic Acid Calcium Phosphorus Magnesium Ferritin Lactate Dehydrogenase C-Reactive Protein NT-Pro-B Natriuret Pep Total Protein Albumin Triglycerides Arterial Blood Glucose Urine pH Ur Specific [place] Coronavirus (PCR) 04/14/21 04/14/21 04/14/21 04:32 05:18 11:03 WBC RBC Hgb Hct MCV MCHC RDW Plt Count Lymph % (Auto) [place] % (Auto) Lymph # (Auto) [place] # (Auto) Seg Neutrophils % Seg Neuts % (Manual) Lymphocytes % (Manual) Monocytes % (Manual) Nucleated RBC % Seg Neutrophils # Seg Neutrophils # Man Lymphocytes # (Manual) Monocytes # (Manual) PT INR APTT D-Dimer Heparin Anti-Xa Level ABG pH POC ABG pCO2 POC ABG pO2 ABG pO2 ABG HCO3 ABG O2 Saturation ABG Base Excess ABG Hemoglobin ABG Oxyhemoglobin ABG Sodium ABG Potassium ABG Glucose Oxyhemoglobin Carboxyhemoglobin Sodium Potassium Chloride 95.5 L Carbon Dioxide 38 H BUN Creatinine 0.4 L Glucose 141 H POC Glucose 140 H 143 H Lactic Acid Calcium Phosphorus Magnesium Ferritin Lactate Dehydrogenase C-Reactive Protein NT-Pro-B Natriuret Pep Total Protein Albumin Triglycerides Arterial Blood Glucose Urine pH Ur Specific [place] Coronavirus (PCR) 04/14/21 04/14/21 04/14/21 16:38 23:46 Unknown WBC RBC Hgb Hct MCV MCHC RDW Plt Count Lymph % (Auto) [place] % (Auto) Lymph # (Auto) [place] # (Auto) Seg Neutrophils % Seg Neuts % (Manual) Lymphocytes % (Manual) Monocytes % (Manual) Nucleated RBC % Seg Neutrophils # Seg Neutrophils # Man Lymphocytes # (Manual) Monocytes # (Manual) PT INR APTT D-Dimer Heparin Anti-Xa Level ABG pH POC ABG pCO2 POC ABG pO2 ABG pO2 ABG HCO3 ABG O2 Saturation ABG Base Excess ABG Hemoglobin ABG Oxyhemoglobin ABG Sodium ABG Potassium ABG Glucose Oxyhemoglobin Carboxyhemoglobin Sodium Potassium Chloride Carbon Dioxide BUN Creatinine Glucose POC Glucose 157 H 155 H Lactic Acid Calcium Phosphorus Magnesium Ferritin Lactate Dehydrogenase C-Reactive Protein NT-Pro-B Natriuret Pep Total Protein Albumin Triglycerides Arterial Blood Glucose Urine pH 8.0 H Ur Specific [place] Coronavirus (PCR) 04/15/21 04/15/21 04/15/21 04:44 04:44 05:52 WBC 15.8 H RBC 2.96 L Hgb 8.9 L Hct 27.1 L MCV MCHC RDW 16.5 H Plt Count 507 H Lymph % (Auto) [place] % (Auto) Lymph # (Auto) [place] # (Auto) Seg Neutrophils % Seg Neuts % (Manual) Lymphocytes % (Manual) Monocytes % (Manual) Nucleated RBC % Seg Neutrophils # Seg Neutrophils # Man Lymphocytes # (Manual) Monocytes # (Manual) PT INR APTT D-Dimer Heparin Anti-Xa Level ABG pH POC ABG pCO2 POC ABG pO2 ABG pO2 ABG HCO3 ABG O2 Saturation ABG Base Excess ABG Hemoglobin ABG Oxyhemoglobin ABG Sodium ABG Potassium ABG Glucose Oxyhemoglobin Carboxyhemoglobin Sodium Potassium Chloride 96.9 L Carbon Dioxide 38 H BUN Creatinine 0.4 L Glucose 163 H POC Glucose 167 H Lactic Acid Calcium Phosphorus Magnesium Ferritin Lactate Dehydrogenase C-Reactive Protein NT-Pro-B Natriuret Pep Total Protein Albumin Triglycerides Arterial Blood Glucose Urine pH Ur Specific [place] Coronavirus (PCR) 04/15/21 04/15/21 04/15/21 11:35 17:20 18:10 WBC RBC Hgb Hct MCV MCHC RDW Plt Count Lymph % (Auto) [place] % (Auto) Lymph # (Auto) [place] # (Auto) Seg Neutrophils % Seg Neuts % (Manual) Lymphocytes % (Manual) Monocytes % (Manual) Nucleated RBC % Seg Neutrophils # Seg Neutrophils # Man Lymphocytes # (Manual) Monocytes # (Manual) PT INR APTT D-Dimer Heparin Anti-Xa Level ABG pH 7.477 H POC ABG pCO2 POC ABG pO2 ABG pO2 ABG HCO3 40.6 H ABG O2 Saturation ABG Base Excess 15.2 H ABG Hemoglobin 9.0 L ABG Oxyhemoglobin ABG Sodium ABG Potassium ABG Glucose Oxyhemoglobin 94.7 L Carboxyhemoglobin Sodium Potassium Chloride Carbon Dioxide BUN Creatinine Glucose POC Glucose 179 H 165 H Lactic Acid Calcium Phosphorus Magnesium Ferritin Lactate Dehydrogenase C-Reactive Protein NT-Pro-B Natriuret Pep Total Protein Albumin Triglycerides Arterial Blood Glucose Urine pH Ur Specific [place] Coronavirus (PCR) 04/15/21 04/16/21 04/16/21 23:39 04:33 04:33 WBC 13.1 H RBC 3.26 L Hgb 9.5 L Hct 30.2 L MCV MCHC 31 L RDW 16.2 H Plt Count Lymph % (Auto) [place] % (Auto) Lymph # (Auto) [place] # (Auto) Seg Neutrophils % Seg Neuts % (Manual) Lymphocytes % (Manual) Monocytes % (Manual) Nucleated RBC % Seg Neutrophils # Seg Neutrophils # Man Lymphocytes # (Manual) Monocytes # (Manual) PT INR APTT D-Dimer Heparin Anti-Xa Level ABG pH POC ABG pCO2 POC ABG pO2 ABG pO2 ABG HCO3 ABG O2 Saturation ABG Base Excess ABG Hemoglobin ABG Oxyhemoglobin ABG Sodium ABG Potassium ABG Glucose Oxyhemoglobin Carboxyhemoglobin Sodium Potassium Chloride 95.8 L Carbon Dioxide 34 H BUN 24 H Creatinine 0.4 L Glucose 153 H POC Glucose 155 H Lactic Acid Calcium Phosphorus Magnesium 2.40 H Ferritin Lactate Dehydrogenase C-Reactive Protein NT-Pro-B Natriuret Pep Total Protein Albumin Triglycerides Arterial Blood Glucose Urine pH Ur Specific [place] Coronavirus (PCR) 04/16/21 04/16/21 04/16/21 04:55 05:29 11:02 WBC RBC Hgb Hct MCV MCHC RDW Plt Count Lymph % (Auto) [place] % (Auto) Lymph # (Auto) [place] # (Auto) Seg Neutrophils % Seg Neuts % (Manual) Lymphocytes % (Manual) Monocytes % (Manual) Nucleated RBC % Seg Neutrophils # Seg Neutrophils # Man Lymphocytes # (Manual) Monocytes # (Manual) PT INR APTT D-Dimer Heparin Anti-Xa Level ABG pH 7.487 H POC ABG pCO2 POC ABG pO2 ABG pO2 75.4 L ABG HCO3 40.6 H ABG O2 Saturation ABG Base Excess 15.3 H ABG Hemoglobin 8.9 L ABG Oxyhemoglobin ABG Sodium ABG Potassium ABG Glucose Oxyhemoglobin Carboxyhemoglobin Sodium Potassium Chloride Carbon Dioxide BUN Creatinine Glucose POC Glucose 168 H 170 H Lactic Acid Calcium Phosphorus Magnesium Ferritin Lactate Dehydrogenase C-Reactive Protein NT-Pro-B Natriuret Pep Total Protein Albumin Triglycerides Arterial Blood Glucose Urine pH Ur Specific [place] Coronavirus (PCR) 04/16/21 04/16/21 04/17/21 16:13 23:41 04:25 WBC 12.5 H RBC 3.00 L Hgb 8.9 L Hct 27.2 L MCV MCHC RDW 16.0 H Plt Count Lymph % (Auto) [place] % (Auto) Lymph # (Auto) [place] # (Auto) Seg Neutrophils % Seg Neuts % (Manual) Lymphocytes % (Manual) Monocytes % (Manual) Nucleated RBC % Seg Neutrophils # Seg Neutrophils # Man Lymphocytes # (Manual) Monocytes # (Manual) PT INR APTT D-Dimer Heparin Anti-Xa Level ABG pH POC ABG pCO2 POC ABG pO2 ABG pO2 ABG HCO3 ABG O2 Saturation ABG Base Excess ABG Hemoglobin ABG Oxyhemoglobin ABG Sodium ABG Potassium ABG Glucose Oxyhemoglobin Carboxyhemoglobin Sodium Potassium Chloride Carbon Dioxide BUN Creatinine Glucose POC Glucose 167 H 150 H Lactic Acid Calcium Phosphorus Magnesium Ferritin Lactate Dehydrogenase C-Reactive Protein NT-Pro-B Natriuret Pep Total Protein Albumin Triglycerides Arterial Blood Glucose Urine pH Ur Specific [place] Coronavirus (PCR) 04/17/21 04/17/21 04/17/21 04:25 05:23 11:18 WBC RBC Hgb Hct MCV MCHC RDW Plt Count Lymph % (Auto) [place] % (Auto) Lymph # (Auto) [place] # (Auto) Seg Neutrophils % Seg Neuts % (Manual) Lymphocytes % (Manual) Monocytes % (Manual) Nucleated RBC % Seg Neutrophils # Seg Neutrophils # Man Lymphocytes # (Manual) Monocytes # (Manual) PT INR APTT D-Dimer Heparin Anti-Xa Level ABG pH POC ABG pCO2 POC ABG pO2 ABG pO2 ABG HCO3 ABG O2 Saturation ABG Base Excess ABG Hemoglobin ABG Oxyhemoglobin ABG Sodium ABG Potassium ABG Glucose Oxyhemoglobin Carboxyhemoglobin Sodium 136 L Potassium Chloride 92.4 L Carbon Dioxide 36 H BUN 23 H Creatinine 0.4 L Glucose 145 H POC Glucose 128 H 163 H Lactic Acid Calcium Phosphorus Magnesium Ferritin Lactate Dehydrogenase C-Reactive Protein NT-Pro-B Natriuret Pep Total Protein Albumin Triglycerides Arterial Blood Glucose Urine pH Ur Specific [place] Coronavirus (PCR) 04/17/21 04/17/21 04/18/21 16:50 21:04 00:18 WBC RBC Hgb Hct MCV MCHC RDW Plt Count Lymph % (Auto) [place] % (Auto) Lymph # (Auto) [place] # (Auto) Seg Neutrophils % Seg Neuts % (Manual) Lymphocytes % (Manual) Monocytes % (Manual) Nucleated RBC % Seg Neutrophils # Seg Neutrophils # Man Lymphocytes # (Manual) Monocytes # (Manual) PT INR APTT D-Dimer Heparin Anti-Xa Level ABG pH POC ABG pCO2 POC ABG pO2 ABG pO2 ABG HCO3 ABG O2 Saturation ABG Base Excess ABG Hemoglobin ABG Oxyhemoglobin ABG Sodium ABG Potassium ABG Glucose Oxyhemoglobin Carboxyhemoglobin Sodium Potassium Chloride Carbon Dioxide BUN Creatinine Glucose POC Glucose 137 H 186 H 194 H Lactic Acid Calcium Phosphorus Magnesium Ferritin Lactate Dehydrogenase C-Reactive Protein NT-Pro-B Natriuret Pep Total Protein Albumin Triglycerides Arterial Blood Glucose Urine pH Ur Specific [place] Coronavirus (PCR) 04/18/21 04/18/21 04/18/21 04:20 04:20 05:21 WBC 14.2 H RBC 2.92 L Hgb 8.5 L Hct 26.3 L MCV MCHC RDW 16.1 H Plt Count Lymph % (Auto) [place] % (Auto) Lymph # (Auto) [place] # (Auto) Seg Neutrophils % Seg Neuts % (Manual) Lymphocytes % (Manual) Monocytes % (Manual) Nucleated RBC % Seg Neutrophils # Seg Neutrophils # Man Lymphocytes # (Manual) Monocytes # (Manual) PT INR APTT D-Dimer Heparin Anti-Xa Level ABG pH POC ABG pCO2 POC ABG pO2 ABG pO2 ABG HCO3 ABG O2 Saturation ABG Base Excess ABG Hemoglobin ABG Oxyhemoglobin ABG Sodium ABG Potassium ABG Glucose Oxyhemoglobin Carboxyhemoglobin Sodium Potassium Chloride 95.7 L Carbon Dioxide 33 H BUN 21 H Creatinine 0.3 L Glucose 120 H POC Glucose 107 H Lactic Acid Calcium Phosphorus Magnesium Ferritin Lactate Dehydrogenase C-Reactive Protein NT-Pro-B Natriuret Pep Total Protein Albumin Triglycerides Arterial Blood Glucose Urine pH Ur Specific [place] Coronavirus (PCR) 04/18/21 04/18/21 04/18/21 05:26 11:30 11:33 WBC RBC Hgb Hct MCV MCHC RDW Plt Count Lymph % (Auto) [place] % (Auto) Lymph # (Auto) [place] # (Auto) Seg Neutrophils % Seg Neuts % (Manual) Lymphocytes % (Manual) Monocytes % (Manual) Nucleated RBC % Seg Neutrophils # Seg Neutrophils # Man Lymphocytes # (Manual) Monocytes # (Manual) PT INR APTT D-Dimer Heparin Anti-Xa Level ABG pH 7.469 H POC ABG pCO2 POC ABG pO2 ABG pO2 108.9 H ABG HCO3 36.2 H ABG O2 Saturation ABG Base Excess 11.2 H ABG Hemoglobin 8.8 L ABG Oxyhemoglobin ABG Sodium ABG Potassium ABG Glucose Oxyhemoglobin Carboxyhemoglobin Sodium Potassium Chloride Carbon Dioxide BUN Creatinine Glucose POC Glucose 111 H 113 H Lactic Acid Calcium Phosphorus Magnesium Ferritin Lactate Dehydrogenase C-Reactive Protein NT-Pro-B Natriuret Pep Total Protein Albumin Triglycerides Arterial Blood Glucose Urine pH Ur Specific [place] Coronavirus (PCR) 04/18/21 04/18/21 04/19/21 16:53 23:26 04:26 WBC 13.6 H RBC 2.69 L Hgb 8.5 L Hct 24.4 L MCV MCHC 35 H RDW 15.9 H Plt Count Lymph % (Auto) [place] % (Auto) Lymph # (Auto) [place] # (Auto) Seg Neutrophils % Seg Neuts % (Manual) Lymphocytes % (Manual) Monocytes % (Manual) Nucleated RBC % Seg Neutrophils # Seg Neutrophils # Man Lymphocytes # (Manual) Monocytes # (Manual) PT INR APTT D-Dimer Heparin Anti-Xa Level ABG pH POC ABG pCO2 POC ABG pO2 ABG pO2 ABG HCO3 ABG O2 Saturation ABG Base Excess ABG Hemoglobin ABG Oxyhemoglobin ABG Sodium ABG Potassium ABG Glucose Oxyhemoglobin Carboxyhemoglobin Sodium Potassium Chloride Carbon Dioxide BUN Creatinine Glucose POC Glucose 139 H 137 H Lactic Acid Calcium Phosphorus Magnesium Ferritin Lactate Dehydrogenase C-Reactive Protein NT-Pro-B Natriuret Pep Total Protein Albumin Triglycerides Arterial Blood Glucose Urine pH Ur Specific [place] Coronavirus (PCR) 04/19/21 04/19/21 04/19/21 04:26 05:16 11:01 WBC RBC Hgb Hct MCV MCHC RDW Plt Count Lymph % (Auto) [place] % (Auto) Lymph # (Auto) [place] # (Auto) Seg Neutrophils % Seg Neuts % (Manual) Lymphocytes % (Manual) Monocytes % (Manual) Nucleated RBC % Seg Neutrophils # Seg Neutrophils # Man Lymphocytes # (Manual) Monocytes # (Manual) PT INR APTT D-Dimer Heparin Anti-Xa Level ABG pH POC ABG pCO2 POC ABG pO2 ABG pO2 ABG HCO3 ABG O2 Saturation ABG Base Excess ABG Hemoglobin ABG Oxyhemoglobin ABG Sodium ABG Potassium ABG Glucose Oxyhemoglobin Carboxyhemoglobin Sodium Potassium Chloride Carbon Dioxide BUN Creatinine 0.3 L Glucose 163 H POC Glucose 154 H 164 H Lactic Acid Calcium Phosphorus Magnesium Ferritin Lactate Dehydrogenase C-Reactive Protein NT-Pro-B Natriuret Pep Total Protein Albumin Triglycerides Arterial Blood Glucose Urine pH Ur Specific [place] Coronavirus (PCR) 04/19/21 04/19/21 04/19/21 15:55 21:00 23:13 WBC RBC Hgb Hct MCV MCHC RDW Plt Count Lymph % (Auto) [place] % (Auto) Lymph # (Auto) [place] # (Auto) Seg Neutrophils % Seg Neuts % (Manual) Lymphocytes % (Manual) Monocytes % (Manual) Nucleated RBC % Seg Neutrophils # Seg Neutrophils # Man Lymphocytes # (Manual) Monocytes # (Manual) PT INR APTT D-Dimer Heparin Anti-Xa Level ABG pH POC ABG pCO2 POC ABG pO2 ABG pO2 ABG HCO3 ABG O2 Saturation ABG Base Excess ABG Hemoglobin ABG Oxyhemoglobin ABG Sodium ABG Potassium ABG Glucose Oxyhemoglobin Carboxyhemoglobin Sodium Potassium Chloride Carbon Dioxide BUN Creatinine Glucose POC Glucose 138 H 151 H 147 H Lactic Acid Calcium Phosphorus Magnesium Ferritin Lactate Dehydrogenase C-Reactive Protein NT-Pro-B Natriuret Pep Total Protein Albumin Triglycerides Arterial Blood Glucose Urine pH Ur Specific [place] Coronavirus (PCR) 04/20/21 04/20/21 04/20/21 04:17 04:17 05:15 WBC 13.1 H RBC 2.94 L Hgb 8.8 L Hct 26.8 L MCV MCHC RDW 16.2 H Plt Count Lymph % (Auto) [place] % (Auto) Lymph # (Auto) [place] # (Auto) Seg Neutrophils % Seg Neuts % (Manual) Lymphocytes % (Manual) Monocytes % (Manual) Nucleated RBC % Seg Neutrophils # Seg Neutrophils # Man Lymphocytes # (Manual) Monocytes # (Manual) PT INR APTT D-Dimer Heparin Anti-Xa Level ABG pH POC ABG pCO2 POC ABG pO2 ABG pO2 ABG HCO3 ABG O2 Saturation ABG Base Excess ABG Hemoglobin ABG Oxyhemoglobin ABG Sodium ABG Potassium ABG Glucose Oxyhemoglobin Carboxyhemoglobin Sodium 135 L Potassium Chloride Carbon Dioxide BUN Creatinine 0.3 L Glucose 151 H POC Glucose 126 H Lactic Acid Calcium 8.3 L Phosphorus Magnesium Ferritin Lactate Dehydrogenase C-Reactive Protein NT-Pro-B Natriuret Pep Total Protein Albumin Triglycerides Arterial Blood Glucose Urine pH Ur Specific [place] Coronavirus (PCR) 04/20/21 04/20/21 04/20/21 11:03 16:01 23:54 WBC RBC Hgb Hct MCV MCHC RDW Plt Count Lymph % (Auto) [place] % (Auto) Lymph # (Auto) [place] # (Auto) Seg Neutrophils % Seg Neuts % (Manual) Lymphocytes % (Manual) Monocytes % (Manual) Nucleated RBC % Seg Neutrophils # Seg Neutrophils # Man Lymphocytes # (Manual) Monocytes # (Manual) PT INR APTT D-Dimer Heparin Anti-Xa Level ABG pH POC ABG pCO2 POC ABG pO2 ABG pO2 ABG HCO3 ABG O2 Saturation ABG Base Excess ABG Hemoglobin ABG Oxyhemoglobin ABG Sodium ABG Potassium ABG Glucose Oxyhemoglobin Carboxyhemoglobin Sodium Potassium Chloride Carbon Dioxide BUN Creatinine Glucose POC Glucose 154 H 152 H 145 H Lactic Acid Calcium Phosphorus Magnesium Ferritin Lactate Dehydrogenase C-Reactive Protein NT-Pro-B Natriuret Pep Total Protein Albumin Triglycerides Arterial Blood Glucose Urine pH Ur Specific [place] Coronavirus (PCR) 04/21/21 04/21/21 04/21/21 04:39 11:20 11:37 WBC RBC Hgb Hct MCV MCHC RDW Plt Count Lymph % (Auto) [place] % (Auto) Lymph # (Auto) [place] # (Auto) Seg Neutrophils % Seg Neuts % (Manual) Lymphocytes % (Manual) Monocytes % (Manual) Nucleated RBC % Seg Neutrophils # Seg Neutrophils # Man Lymphocytes # (Manual) Monocytes # (Manual) PT INR APTT D-Dimer Heparin Anti-Xa Level ABG pH 7.503 H POC ABG pCO2 POC ABG pO2 ABG pO2 ABG HCO3 ABG O2 Saturation ABG Base Excess ABG Hemoglobin 10.8 L ABG Oxyhemoglobin ABG Sodium ABG Potassium ABG Glucose Oxyhemoglobin Carboxyhemoglobin 0.1 L Sodium Potassium Chloride Carbon Dioxide BUN Creatinine 0.3 L Glucose 174 H POC Glucose 147 H Lactic Acid Calcium Phosphorus Magnesium Ferritin Lactate Dehydrogenase C-Reactive Protein NT-Pro-B Natriuret Pep Total Protein Albumin Triglycerides Arterial Blood Glucose Urine pH Ur Specific [place] Coronavirus (PCR) 04/21/21 04/21/21 04/21/21 11:48 12:11 17:56 WBC 14.5 H RBC 3.08 L Hgb 9.3 L Hct 28.2 L MCV MCHC RDW 16.5 H Plt Count Lymph % (Auto) [place] % (Auto) Lymph # (Auto) [place] # (Auto) Seg Neutrophils % Seg Neuts % (Manual) Lymphocytes % (Manual) Monocytes % (Manual) Nucleated RBC % Seg Neutrophils # Seg Neutrophils # Man Lymphocytes # (Manual) Monocytes # (Manual) PT INR APTT D-Dimer Heparin Anti-Xa Level ABG pH POC ABG pCO2 POC ABG pO2 ABG pO2 ABG HCO3 ABG O2 Saturation ABG Base Excess ABG Hemoglobin ABG Oxyhemoglobin ABG Sodium ABG Potassium ABG Glucose Oxyhemoglobin Carboxyhemoglobin Sodium Potassium Chloride Carbon Dioxide BUN Creatinine Glucose POC Glucose 154 H 138 H Lactic Acid Calcium Phosphorus Magnesium Ferritin Lactate Dehydrogenase C-Reactive Protein NT-Pro-B Natriuret Pep Total Protein Albumin Triglycerides Arterial Blood Glucose Urine pH Ur Specific [place] Coronavirus (PCR) 04/21/21 04/22/21 04/22/21 23:31 04:30 04:30 WBC 12.3 H RBC 3.20 L Hgb 9.5 L Hct 29.3 L MCV MCHC RDW 16.6 H Plt Count Lymph % (Auto) [place] % (Auto) Lymph # (Auto) [place] # (Auto) Seg Neutrophils % Seg Neuts % (Manual) Lymphocytes % (Manual) Monocytes % (Manual) Nucleated RBC % Seg Neutrophils # Seg Neutrophils # Man Lymphocytes # (Manual) Monocytes # (Manual) PT INR APTT D-Dimer Heparin Anti-Xa Level ABG pH POC ABG pCO2 POC ABG pO2 ABG pO2 ABG HCO3 ABG O2 Saturation ABG Base Excess ABG Hemoglobin ABG Oxyhemoglobin ABG Sodium ABG Potassium ABG Glucose Oxyhemoglobin Carboxyhemoglobin Sodium Potassium Chloride Carbon Dioxide BUN Creatinine 0.3 L Glucose 125 H POC Glucose 162 H Lactic Acid Calcium Phosphorus Magnesium Ferritin Lactate Dehydrogenase C-Reactive Protein NT-Pro-B Natriuret Pep Total Protein Albumin Triglycerides Arterial Blood Glucose Urine pH Ur Specific [place] Coronavirus (PCR) 04/22/21 04/22/21 04/22/21 05:17 12:03 17:22 WBC RBC Hgb Hct MCV MCHC RDW Plt Count Lymph % (Auto) [place] % (Auto) Lymph # (Auto) [place] # (Auto) Seg Neutrophils % Seg Neuts % (Manual) Lymphocytes % (Manual) Monocytes % (Manual) Nucleated RBC % Seg Neutrophils # Seg Neutrophils # Man Lymphocytes # (Manual) Monocytes # (Manual) PT INR APTT D-Dimer Heparin Anti-Xa Level ABG pH POC ABG pCO2 POC ABG pO2 ABG pO2 ABG HCO3 ABG O2 Saturation ABG Base Excess ABG Hemoglobin ABG Oxyhemoglobin ABG Sodium ABG Potassium ABG Glucose Oxyhemoglobin Carboxyhemoglobin Sodium Potassium Chloride Carbon Dioxide BUN Creatinine Glucose POC Glucose 112 H 156 H 133 H Lactic Acid Calcium Phosphorus Magnesium Ferritin Lactate Dehydrogenase C-Reactive Protein NT-Pro-B Natriuret Pep Total Protein Albumin Triglycerides Arterial Blood Glucose Urine pH Ur Specific [place] Coronavirus (PCR) 04/23/21 04/23/21 04/23/21 00:58 05:08 12:59 WBC RBC Hgb Hct MCV MCHC RDW Plt Count Lymph % (Auto) [place] % (Auto) Lymph # (Auto) [place] # (Auto) Seg Neutrophils % Seg Neuts % (Manual) Lymphocytes % (Manual) Monocytes % (Manual) Nucleated RBC % Seg Neutrophils # Seg Neutrophils # Man Lymphocytes # (Manual) Monocytes # (Manual) PT INR APTT D-Dimer Heparin Anti-Xa Level ABG pH POC ABG pCO2 POC ABG pO2 ABG pO2 ABG HCO3 ABG O2 Saturation ABG Base Excess ABG Hemoglobin ABG Oxyhemoglobin ABG Sodium ABG Potassium ABG Glucose Oxyhemoglobin Carboxyhemoglobin Sodium Potassium Chloride Carbon Dioxide BUN Creatinine Glucose POC Glucose 133 H 156 H 139 H Lactic Acid Calcium Phosphorus Magnesium Ferritin Lactate Dehydrogenase C-Reactive Protein NT-Pro-B Natriuret Pep Total Protein Albumin Triglycerides Arterial Blood Glucose Urine pH Ur Specific [place] Coronavirus (PCR) 04/23/21 04/23/21 04/24/21 18:12 23:41 04:00 WBC 12.9 H RBC 3.33 L Hgb 10.2 L Hct 30.1 L MCV MCHC RDW 16.6 H Plt Count Lymph % (Auto) [place] % (Auto) Lymph # (Auto) [place] # (Auto) Seg Neutrophils % Seg Neuts % (Manual) Lymphocytes % (Manual) Monocytes % (Manual) Nucleated RBC % Seg Neutrophils # Seg Neutrophils # Man Lymphocytes # (Manual) Monocytes # (Manual) PT INR APTT D-Dimer Heparin Anti-Xa Level ABG pH POC ABG pCO2 POC ABG pO2 ABG pO2 ABG HCO3 ABG O2 Saturation ABG Base Excess ABG Hemoglobin ABG Oxyhemoglobin ABG Sodium ABG Potassium ABG Glucose Oxyhemoglobin Carboxyhemoglobin Sodium Potassium Chloride Carbon Dioxide BUN Creatinine Glucose POC Glucose 148 H 127 H Lactic Acid Calcium Phosphorus Magnesium Ferritin Lactate Dehydrogenase C-Reactive Protein NT-Pro-B Natriuret Pep Total Protein Albumin Triglycerides Arterial Blood Glucose Urine pH Ur Specific [place] Coronavirus (PCR) 04/24/21 04/24/21 04/24/21 04:00 05:15 11:45 WBC RBC Hgb Hct MCV MCHC RDW Plt Count Lymph % (Auto) [place] % (Auto) Lymph # (Auto) [place] # (Auto) Seg Neutrophils % Seg Neuts % (Manual) Lymphocytes % (Manual) Monocytes % (Manual) Nucleated RBC % Seg Neutrophils # Seg Neutrophils # Man Lymphocytes # (Manual) Monocytes # (Manual) PT INR APTT D-Dimer Heparin Anti-Xa Level ABG pH POC ABG pCO2 POC ABG pO2 ABG pO2 ABG HCO3 ABG O2 Saturation ABG Base Excess ABG Hemoglobin ABG Oxyhemoglobin ABG Sodium ABG Potassium ABG Glucose Oxyhemoglobin Carboxyhemoglobin Sodium Potassium Chloride Carbon Dioxide BUN Creatinine 0.4 L Glucose 136 H POC Glucose 135 H 140 H Lactic Acid Calcium Phosphorus Magnesium Ferritin Lactate Dehydrogenase C-Reactive Protein NT-Pro-B Natriuret Pep Total Protein Albumin Triglycerides Arterial Blood Glucose Urine pH Ur Specific [place] Coronavirus (PCR) 04/24/21 04/24/21 04/24/21 16:06 18:26 23:48 WBC RBC Hgb Hct MCV MCHC RDW Plt Count Lymph % (Auto) [place] % (Auto) Lymph # (Auto) [place] # (Auto) Seg Neutrophils % Seg Neuts % (Manual) Lymphocytes % (Manual) Monocytes % (Manual) Nucleated RBC % Seg Neutrophils # Seg Neutrophils # Man Lymphocytes # (Manual) Monocytes # (Manual) PT INR APTT D-Dimer Heparin Anti-Xa Level ABG pH POC ABG pCO2 POC ABG pO2 ABG pO2 ABG HCO3 ABG O2 Saturation ABG Base Excess ABG Hemoglobin ABG Oxyhemoglobin ABG Sodium ABG Potassium ABG Glucose Oxyhemoglobin Carboxyhemoglobin Sodium Potassium Chloride Carbon Dioxide BUN Creatinine Glucose POC Glucose 141 H 141 H 129 H Lactic Acid Calcium Phosphorus Magnesium Ferritin Lactate Dehydrogenase C-Reactive Protein NT-Pro-B Natriuret Pep Total Protein Albumin Triglycerides Arterial Blood Glucose Urine pH Ur Specific [place] Coronavirus (PCR) 04/25/21 04/25/21 04/25/21 05:27 11:27 15:04 WBC RBC Hgb Hct MCV MCHC RDW Plt Count Lymph % (Auto) [place] % (Auto) Lymph # (Auto) [place] # (Auto) Seg Neutrophils % Seg Neuts % (Manual) Lymphocytes % (Manual) Monocytes % (Manual) Nucleated RBC % Seg Neutrophils # Seg Neutrophils # Man Lymphocytes # (Manual) Monocytes # (Manual) PT INR APTT D-Dimer Heparin Anti-Xa Level ABG pH POC ABG pCO2 POC ABG pO2 ABG pO2 ABG HCO3 ABG O2 Saturation ABG Base Excess ABG Hemoglobin ABG Oxyhemoglobin ABG Sodium ABG Potassium ABG Glucose Oxyhemoglobin Carboxyhemoglobin Sodium 135 L Potassium Chloride Carbon Dioxide BUN Creatinine 0.4 L Glucose 142 H POC Glucose 142 H 151 H Lactic Acid Calcium Phosphorus Magnesium Ferritin Lactate Dehydrogenase C-Reactive Protein NT-Pro-B Natriuret Pep Total Protein Albumin Triglycerides Arterial Blood Glucose Urine pH Ur Specific [place] Coronavirus (PCR) 04/25/21 04/26/21 04/26/21 23:34 05:36 07:51 WBC RBC Hgb Hct MCV MCHC RDW Plt Count Lymph % (Auto) [place] % (Auto) Lymph # (Auto) [place] # (Auto) Seg Neutrophils % Seg Neuts % (Manual) Lymphocytes % (Manual) Monocytes % (Manual) Nucleated RBC % Seg Neutrophils # Seg Neutrophils # Man Lymphocytes # (Manual) Monocytes # (Manual) PT INR APTT D-Dimer Heparin Anti-Xa Level ABG pH POC ABG pCO2 POC ABG pO2 ABG pO2 ABG HCO3 ABG O2 Saturation ABG Base Excess ABG Hemoglobin ABG Oxyhemoglobin ABG Sodium ABG Potassium ABG Glucose Oxyhemoglobin Carboxyhemoglobin Sodium Potassium Chloride Carbon Dioxide BUN Creatinine Glucose POC Glucose 127 H 135 H 129 H Lactic Acid Calcium Phosphorus Magnesium Ferritin Lactate Dehydrogenase C-Reactive Protein NT-Pro-B Natriuret Pep Total Protein Albumin Triglycerides Arterial Blood Glucose Urine pH Ur Specific [place] Coronavirus (PCR) 04/26/21 04/26/21 04/26/21 11:24 18:14 21:07 WBC RBC Hgb Hct MCV MCHC RDW Plt Count Lymph % (Auto) [place] % (Auto) Lymph # (Auto) [place] # (Auto) Seg Neutrophils % Seg Neuts % (Manual) Lymphocytes % (Manual) Monocytes % (Manual) Nucleated RBC % Seg Neutrophils # Seg Neutrophils # Man Lymphocytes # (Manual) Monocytes # (Manual) PT INR APTT D-Dimer Heparin Anti-Xa Level ABG pH POC ABG pCO2 POC ABG pO2 ABG pO2 ABG HCO3 ABG O2 Saturation ABG Base Excess ABG Hemoglobin ABG Oxyhemoglobin ABG Sodium ABG Potassium ABG Glucose Oxyhemoglobin Carboxyhemoglobin Sodium Potassium Chloride Carbon Dioxide BUN Creatinine Glucose POC Glucose 129 H 109 H 122 H Lactic Acid Calcium Phosphorus Magnesium Ferritin Lactate Dehydrogenase C-Reactive Protein NT-Pro-B Natriuret Pep Total Protein Albumin Triglycerides Arterial Blood Glucose Urine pH Ur Specific [place] Coronavirus (PCR) 04/27/21 04/27/21 04/27/21 06:13 11:03 16:32 WBC RBC Hgb Hct MCV MCHC RDW Plt Count Lymph % (Auto) [place] % (Auto) Lymph # (Auto) [place] # (Auto) Seg Neutrophils % Seg Neuts % (Manual) Lymphocytes % (Manual) Monocytes % (Manual) Nucleated RBC % Seg Neutrophils # Seg Neutrophils # Man Lymphocytes # (Manual) Monocytes # (Manual) PT INR APTT D-Dimer Heparin Anti-Xa Level ABG pH POC ABG pCO2 POC ABG pO2 ABG pO2 ABG HCO3 ABG O2 Saturation ABG Base Excess ABG Hemoglobin ABG Oxyhemoglobin ABG Sodium ABG Potassium ABG Glucose Oxyhemoglobin Carboxyhemoglobin Sodium Potassium Chloride Carbon Dioxide BUN Creatinine Glucose POC Glucose 112 H 134 H 136 H Lactic Acid Calcium Phosphorus Magnesium Ferritin Lactate Dehydrogenase C-Reactive Protein NT-Pro-B Natriuret Pep Total Protein Albumin Triglycerides Arterial Blood Glucose Urine pH Ur Specific [place] Coronavirus (PCR) 04/28/21 04/28/21 04/28/21 00:05 05:31 11:20 WBC RBC Hgb Hct MCV MCHC RDW Plt Count Lymph % (Auto) [place] % (Auto) Lymph # (Auto) [place] # (Auto) Seg Neutrophils % Seg Neuts % (Manual) Lymphocytes % (Manual) Monocytes % (Manual) Nucleated RBC % Seg Neutrophils # Seg Neutrophils # Man Lymphocytes # (Manual) Monocytes # (Manual) PT INR APTT D-Dimer Heparin Anti-Xa Level ABG pH POC ABG pCO2 POC ABG pO2 ABG pO2 ABG HCO3 ABG O2 Saturation ABG Base Excess ABG Hemoglobin ABG Oxyhemoglobin ABG Sodium ABG Potassium ABG Glucose Oxyhemoglobin Carboxyhemoglobin Sodium Potassium Chloride Carbon Dioxide BUN Creatinine Glucose POC Glucose 113 H 116 H 116 H Lactic Acid Calcium Phosphorus Magnesium Ferritin Lactate Dehydrogenase C-Reactive Protein NT-Pro-B Natriuret Pep Total Protein Albumin Triglycerides Arterial Blood Glucose Urine pH Ur Specific [place] Coronavirus (PCR) 04/28/21 04/29/21 04/29/21 23:36 05:03 05:03 WBC RBC 3.15 L Hgb 9.8 L Hct 29.1 L MCV MCHC RDW 17.6 H Plt Count Lymph % (Auto) [place] % (Auto) Lymph # (Auto) [place] # (Auto) Seg Neutrophils % Seg Neuts % (Manual) Lymphocytes % (Manual) Monocytes % (Manual) Nucleated RBC % Seg Neutrophils # Seg Neutrophils # Man Lymphocytes # (Manual) Monocytes # (Manual) PT INR APTT D-Dimer Heparin Anti-Xa Level ABG pH POC ABG pCO2 POC ABG pO2 ABG pO2 ABG HCO3 ABG O2 Saturation ABG Base Excess ABG Hemoglobin ABG Oxyhemoglobin ABG Sodium ABG Potassium ABG Glucose Oxyhemoglobin Carboxyhemoglobin Sodium 136 L Potassium Chloride Carbon Dioxide BUN 8 L Creatinine 0.3 L Glucose 115 H POC Glucose 120 H Lactic Acid Calcium Phosphorus Magnesium Ferritin Lactate Dehydrogenase C-Reactive Protein NT-Pro-B Natriuret Pep Total Protein Albumin Triglycerides Arterial Blood Glucose Urine pH Ur Specific [place] Coronavirus (PCR) 04/29/21 04/29/21 05:23 12:42 WBC RBC Hgb Hct MCV MCHC RDW Plt Count Lymph % (Auto) [place] % (Auto) Lymph # (Auto) [place] # (Auto) Seg Neutrophils % Seg Neuts % (Manual) Lymphocytes % (Manual) Monocytes % (Manual) Nucleated RBC % Seg Neutrophils # Seg Neutrophils # Man Lymphocytes # (Manual) Monocytes # (Manual) PT INR APTT D-Dimer Heparin Anti-Xa Level ABG pH POC ABG pCO2 POC ABG pO2 ABG pO2 ABG HCO3 ABG O2 Saturation ABG Base Excess ABG Hemoglobin ABG Oxyhemoglobin ABG Sodium ABG Potassium ABG Glucose Oxyhemoglobin Carboxyhemoglobin Sodium Potassium Chloride Carbon Dioxide BUN Creatinine Glucose POC Glucose 112 H 129 H Lactic Acid Calcium Phosphorus Magnesium Ferritin Lactate Dehydrogenase C-Reactive Protein NT-Pro-B Natriuret Pep Total Protein Albumin Triglycerides Arterial Blood Glucose Urine pH Ur Specific [place] Coronavirus (PCR) Allied health notes reviewed: nursing
[2021-04-29] MEDS: INSULIN GLARGINE 100 UNITS/ML SUB-Q SCH (22:21)
[2021-04-30] MEDS: INSULIN LISPRO 100 UNIT/ML SUB-Q SCH ×3 (00:17→18:11)
--- NOTE | 2021-04-30 03:44 | XRay Report ---
CHEST 1 VIEW INDICATION / CLINICAL INFORMATION: Follow up on pulmonary infiltrates.. COMPARISON: Chest x-ray 04/17/2021 FINDINGS: SUPPORT DEVICES: Stable positioning of tracheostomy tube. HEART / MEDIASTINUM: Unchanged cardiomediastinal silhouette. LUNGS / PLEURA: Opacities bilaterally present within the mid to lower lungs as well as perhaps minima l prominence of the central vasculature are without significant change. Low lung volumes remain prese nt. No pneumothorax. ADDITIONAL FINDINGS: No significant additional findings. IMPRESSION: 1. No adverse change. Minimal lung opacity suggesting atelectasis, edema, or infection remain present . Mild vascular congestive changes versus crowding given low lung volumes could additionally be consi dered. Signer Name: Diaz Bella II, MD Signed: 04/30/2021 3:39 AM Workstation Name: [id number]
[2021-04-30] MEDS: hydrALAZINE 25 MG TAB FEEDTUBE SCH ×3 (05:07→21:09)
--- NOTE | 2021-04-30 07:38 | Progress Note ---
Assessment and Plan Assessment and plan: This is a 61-year-old male with past medical history of HTN and DM admitted for sepsis and acute hypoxic respiratory failure 2/2 COVID pneumonia s/p Trach and PEG on 2/ Hospital Course to Date: 03/09: The patient was seen and evaluated today, and he was found to be hemodynamically stable. The patient is currently on BiPAP for possible COVID-19 pneumonia. He was started on Lovenox 1mg/kg for DVT ppx in the setting of d- dimer > 10,000. Infectious Disease was consulted. The patient is pending a TTE. 03/10: No acute events overnight, patient was intubated in the afternoon transferred to ICU 03/11: Patient started on Lantus, free water flushes increased, propofol drip res umed and oral antihypertensive added. 03/12: lantus increased, k at 5, will monitor. I updated his family and his stated that he is not vaccinated. He does have HTN and she will call the RN to update home medications. She did say he takes bystolic and amlopine. She inquired about ventilator and lab work. She had no further questions. 03/13: KVNG overnight. Patient remains hyperglycemic, basal insulin adjusted and increased to Q12hrs. Patient is overall net positive since admit X1 dose of IV lasix, repeat BMP this afternoon. 03/14: Failed SAT this am due to increase agitation, tachycardia and hypertension. Remains on propofol and fentanyl gtt. Hyperkalemia treated with PO kayaxalate. Patient responded to IV lasix yesterday additional dose again today for a net negative balance. Repeat BMP this afternoon. Insulin adjusted for hyperglycemia. 03/15: Remains encephalopathic, not following commansd. Orders placed for CT head/Brain and Neuro consulted. Rectal bleeding subsided, most likely due to hemorrhoids. H&H is stable will continue to monitor. Kayaxexalate for high K, repeat labs 4 to 6hrs post treatment. 03/16: Still agiated this am, CT head with no acute Abn. CXR and ABG noted- evolving pna and worsening hypoxia, now with low grade fevers. Sputum culture ordered, IV Abx added, ID on cosult. 03/17: This am ABG noted, hypoxia improved. Continue to wean FiO2 as tolerated. Still with low grade fevers, on IV Abx per ID. Still with periods of confusion despite sedation, seroquel increased. F/u CXR in the am 03/18: still very agitated especially when off sedation, with hypertension and tachycardia. Continue sedation for RASS -2, PRN antihypertensive for SPB greater than 160. This febrile this am, continue current IV abx per ID 03/19: Patient afebrile overnight, continue IV Abx per ID. ABG also improved this am, continue to wean FIO2 as tolerated. PRN antihypertensive for hypertension. 03/20: Hyperkalemia treated with Kayexalate, Good discontinued, vancomycin and cefepime stopped started Bactrim by ID. Steroid taper started. 03/21: BB started for hypertension, Seroquel increased for agitation and Librium started no acute events reported overnight. [facility] made vent changes 03/22: Adjustment to anxiolytics, respiratory rate on ventilator per [facility]. Patient noted to have bleeding hemorrhoids with clot, requested RN to remove bowel management system and will order Preparation H. 03/23: Given no confirmed DVT or PE (only superficial thrombus noted on Dopplers) therapeutic Lovenox changed to prophylactic Lovenox. Started on doxazosin to help with retention. Consulted surgery for tracheostomy and propofol discontinued. 03/24: Surgery consult completed, patient changed to prophylaxis anticoagulation, started on doxazosin yesterday with plans to remove Good catheter in 48 hours. Patient with slight hypokalemia today and given Kayexalate. No acute events reported overnight. 03/25: No acute events reported overnight. Patient remains on fentanyl drip and on CPAP trial this morning. 03/26: no acute events reported overnight. placed on CPAP this AM, remains on fent/librium. scheduled for trach/peg this week. 03/27: Hypoglycemic this am, will decreased lantus to Qhs. Plan for possible Trach and Peg by Gen Surg this am. Case management to arrange possible LTAC placement 03/28: KVNG overnight. Tolerating PST this am. Plan for trach and PEG tomorrow by Gen. Surgery, NPO after midnight. 03/29: No significant changes overnight. Plan for trach and Peg today. Case management to arrange possible LTAC placement 03/30. S/p Trach and PEG, no complications noted. High residual yesterday despite NPO status, reglan added X2 days. Per RN no residual this am, patient is tolerating TF. Continue to advance TF as tolerated. Norvasc added for hypertension. Pitting edema also appreciated, some diuretic might be beneficial, will d/w CCM. Continue daily PST as tolerated. 03/31: Patient remains on the vent still on fentanyl gtt with periods of agitation. PRN analgesia added, plan to start weaning off fentanyl gtt. Febrile this am, completed IV abx course. Will panculture for now, ID is also following. 04/01: Still febrile overnight, cultures result pending, continue IV ABx per ID. Failed PST this am. Continue daily PST and vent wean per [facility]. Case management to arrange possible placement. 04/02: KVNG overnight. Fevers improved overnight, continue to follow cultures data, IV ABx per ID. Continue daily PST and wean vent as per [facility] [place].\ 04/03: Given low procalcitonin, unchanged CXR and cultures with no growth cefepime was discontinued by ID. LTAC evaluation ongoing. No acute events reported overnight. 04/04: IV Lasix stopped today, Seroquel taper started, fentanyl drip on hold and steroids stopped. Pressure support trial again today. 04/05: Patient had to be restarted on fentanyl drip therefore Seroquel was increased back to 250 twice daily and he was started on scheduled narcotics and efforts to wean fentanyl drip. Doxazosin was increased to twice daily as patient still had retention issues on doxazosin once a day. Patient was denied LTAC placement. CPAP trial today. 04/06: Right upper extremity ultrasound obtained due to edema which showed DVT. Patient started on heparin drip. Overnight patient had hypoxia, tachypnea, tachycardia, hypotension and FiO2 was increased to 100%. RT titrating as tolerated. Plan was to start T-piece trials today. Patient has been denied LTAC placement. 04/07: BLE dopplar, continue lasix per [facility], CXR in AM. Increase in fio2 overnight d/t desaturation. Wean FiO2 as tolerated. 04/08: Patient remains on 65% FiO2, s/p Lasix for 3 doses, hyperkalemia noted today and medically treated. [facility] [place] plans to consult heme/onc once FiO2 decreased. Remains on heparin gtt 04/09: No acute events reported overnight, possible heme-onc consult on Saturday or Saturday regarding upper extremity DVT, wean FiO2 as tolerated. Repeat CT head on Monday 04/10: Patient mentation is unchanged, repeat CT head today. Remains on heparin gtt per protocol. Continue daily PST as tolerated. 04/11: Increased work of breathing and high RR overnight, vent FiO2 increased to 55%. Resolved this am, patient is tolerating PST, no acute distress noted. Wean Fio2 as tolerated for SPO2 above 92%, Follow up CXR and ABG in the am. Antihypertensive regimen adjusted for better BP control. 04/12: Patient with coarse lungs and increased secretion today. This am CXR noted with worsen infiltrate, 40 of Lasix given, repeat CXR in the am. Patient remains afebrile, complete IV Abx course, VSS. Transitioned to PO Eliquis overnight, continue to keep patient net negative for better lung compliance. Continue daily PST as tolerated. 04/13: Patient is off sedation this am. Remains unresponsive. Librium D/C and Seroquel was adjusted to Qhs, PRN analgesia for pain management. Patient responded well to IV lasix, this am CXR with some improvement, additional IV lasix ordered again today. high CO2 also noted from this am, ABG ordered. Patient is tolerating PST this am, SPO2 remains above 95%. Continue daily PST plan to get patient off the vent for possible SNF placemement 04/14: Patient mentation is unchanged despite reducing sedative agents. Will hold all scheduled sedatives agents for now, PRN analgesics for pain management and vent synchrony. Patient spike a temp this am, orders placed for cultures, IV abx per ID. Additional lasix today, F/u CXR in the am. Patient is tolerating PST this am. 04/15: Remains febrile overnight. Culture data pending, back on IV Abx per ID. Gentle fluid management with IV lasix. Keep patient at a net negative balance. Continue daily PST as tolerated. 04/16: Open eyes spontaneously this am, but still not following commands. MRI brain ordered. Continue to avoid any sedative agents. Patient continue to respon d very well to IV diuretic, continue gentle diurese X3days as tolerated. Continue daily PST as tolerated. Plan is get patient off the vent for possible SNF placement. Patient remains febrile this am, now cefepine and Vanc, continue IV abx per ID. 04/17: We will repeat procalcitonin per ID, MRI brain pending, SNF placement pending, [facility] plans to start T-piece trials in the morning and will discontinue Good catheter again. 04/18: Overnight patient to be straight cath x2 but did eventually have spo ntaneous urine output today and Good catheter was not replaced, patient had MRI brain today and was started on T-piece trials. He received Versed for sedation for MRI brain. 04/19: Good catheter was not replaced overnight patient is still voiding, placed on T-piece today, scopolamine and Robinul restarted. 04/20: Patient T-piece trial again today, will decrease bowel regimen in a.m. for entering T-piece for 24 hours obtain gas in the a.m. Cefazolin increased 04/21: Patient remained on trach collar throughout the day, will be transitioned to IMCU. Good catheter was replaced overnight due to retention. 04/22: Patient continues to tolerate Trach collar, still with volume overload will continue with diuresis, monitor electrolytes, aggressive pulmonary toliet, aspiration precautions 04/23: Patient remains on trach collar which he is tolerating. Remains on cefazolin, Cardura and Lasix. 04/24: KVNG overnight. Patient is AAO, following commands, and tolerating T-piece. Continue PT 5X/week. Pending SNF vs Subacute rehab placement, case management to arrange. 04/25: KVNG overnight. Remains stable, tolerating T-piece. Plan for possible PSMV trial with speech once available. 04/26: Patient remains stable on T-piece. Awaiting possible SNF placement, case management to arrange. 04/27: Patient remains clinically stable continues on T-piece awaiting SNF placement. Mild leukocytosis but otherwise improving no fever noted at this time. Continue diuresis as there is improvement noted. He is able to vocalize words. Will defer to pulmonary about capping trials. 04/28: Continues to show some improvement. We will continue current management and diuresis as needed. Continue capping trial. Will check labs in a.m. Plan of care discussed with the patient and case management 04/29: Patient seen and examined resting comfortably labs are intact still anemic but stable. Continue current management we will run a trial of diuresis x3. 04/30: Continue supportive care. Wean as tolerated. PMV valve has been ordered for his trach size. Assessment and Plan #Acute Hypoxic Respiratory Failure #COVID Pneumonia - Intubated on 03/10 due to worsen hypoxia on BIPAP - 03/29 s/p Tracheostomy - T-piece- 28% and 5L - Pulmonary on consult - Continue Nebs per CCM - Pulmonary hygiene - keep patient net negative for better lung compliance - Aspiration precaution HOB above 30 - Continue SPO2 monitoring for SPO2 goal above 92% #Sepsis #COVID Pneumonia #MSSA pneumonia -Infectious disease consulted, appreciate recommendations -S/p remdesivir for 5 days -S/p Actemra 03/10/2021 -f/u blood culture -Monitor WBC and temperature curve -s/p steroids -04/18 procal 0.19 -03/16 Fungitell and histoplasma negative -On high dose Cefazolin per ID #Acute Encephalopathy-improved - AAO, following commands - CT head/brain no acute Abn. - Repeat CT head and MRI brain noted - Avoid benzodiazepine to reduce the possibility of delirium - Prn analgesia for pain management - Maintenance of sleep-wake cycle - PT consulted, appreciate recommendations: PT recommends subacute rehab if patient does not qualify for LTAC #Hypertension - 03/09 Echocardiogram shows a mildly dilated ascending aorta, normal LV systolic function, mild concentric LVH, LVEF 60 to 65% - Continue current antihypertensive regimen - PRN Labetalol for SBP above 160 - Continue Blood pressure monitoring per protocol #Urinary retention - Good catheter removed 04/17 and replaced 04/21 - Continue Doxazosin BID - Strict intake and output - Avoid nephrotoxic medications; Renally dose medications - Monitor and replace electrolytes as needed - Trend BMP #Acute right upper extremity DVT - Bilateral lower extremity ultrasounds negative for DVT, superficial thrombus in left gastrocnemius vein - CTA chest shows no gross pulm embolism - bilateral upper extremity ultrasound shows DVT in right upper extremity - Continue PO Eliquis - SCDs to BLE while in bed - Transfuse hemoglobin less than 7 - Monitor for signs of bleeding #Anemia -Stable, continue supportive care #Endo:Type 2 DM - Continue high dose SSI Q6hrs - Lantus qHs - Avoid Hypoglycemia History Interval history: Patient seen and examined, resting comfortable, still trach Piece in place. No n ew complaints, Following commands, actually vocalizing Hospitalist Physical - Physical exam Narrative exam: General appearance: Present: no acute distress, well-nourished, obese, vocalizing through the trach - EENT Eyes: Present: PERRL, EOM intact ENT: hearing intact, clear oral mucosa, dentition normal - Neck Neck: Present: Trach collar, ROM - Respiratory Respiratory effort: normal Respiratory: bilateral: CTA, diminished - Cardiovascular Rhythm: regular Heart Sounds: Present: S1 & S2. Absent: systolic murmur, diastolic murmur - Extremities Extremities: no ischemia, pulses intact, pulses symmetrical, normal temperature Peripheral Pulses: within normal limits - Abdominal General gastrointestinal: soft, non-tender, non-distended, normal bowel sounds - Integumentary Integumentary: Present: warm, +1 edema, overall improving - Psychiatric Psychiatric: cooperative - Neurologic Neurologic: CNII-XII intact, no focal deficits, moves all extremities - Allied Health Allied health notes reviewed: nursing, PT, OT, RT, social work - Constitutional Vitals: Temp Pulse Resp BP Pulse Ox 98.8 F 106 H 29 H 135/71 97 04/30/21 04:00 04/30/21 06:00 04/30/21 06:00 04/30/21 06:00 04/30/21 06:00 General appearance: Present: no acute distress, well-nourished, obese Results - Labs CBC & Chem 7: 04/29/21 05:03 04/29/21 05:03 Labs: Laboratory Last Values WBC 7.0 K/mm3 (4.5-11.0) 04/29/21 05:03 RBC 3.15 M/mm3 (3.65-5.03) L 04/29/21 05:03 Hgb 9.8 gm/dl (11.8-15.2) L 04/29/21 05:03 Hct 29.1 % (35.5-45.6) L 04/29/21 05:03 MCV 92 fl (84-94) 04/29/21 05:03 MCH 31 pg (28-32) 04/29/21 05:03 MCHC 34 % (32-34) 04/29/21 05:03 RDW 17.6 % (13.2-15.2) H 04/29/21 05:03 Plt Count 347 K/mm3 (140-440) 04/29/21 05:03 Lymph % (Auto) 7.6 % (13.4-35.0) L 03/31/21 13:30 [place] % (Auto) 9.5 % (0.0-7.3) H 03/31/21 13:30 Eos % (Auto) 4.1 % (0.0-4.3) 03/31/21 13:30 Baso % (Auto) 0.5 % (0.0-1.8) 03/31/21 13:30 Lymph # (Auto) 0.6 K/mm3 (1.2-5.4) L 03/31/21 13:30 [place] # (Auto) 0.7 K/mm3 (0.0-0.8) 03/31/21 13:30 Eos # (Auto) 0.3 K/mm3 (0.0-0.4) 03/31/21 13:30 Baso # (Auto) 0.0 K/mm3 (0.0-0.1) 03/31/21 13:30 Add Manual Diff Complete 04/11/21 06:47 Total Counted 100 04/11/21 06:47 Seg Neutrophils % 78.3 % (40.0-70.0) H 03/31/21 13:30 Seg Neuts % (Manual) 76.0 % (40.0-70.0) H 04/11/21 06:47 Band Neutrophils % 2.0 % 04/11/21 06:47 Lymphocytes % (Manual) 10.0 % (13.4-35.0) L 04/11/21 06:47 Reactive Lymphs % (Man) 0 % 04/11/21 06:47 Monocytes % (Manual) 7.0 % (0.0-7.3) 04/11/21 06:47 Eosinophils % (Manual) 4.0 % (0.0-4.3) 04/11/21 06:47 Basophils % (Manual) 0 % (0.0-1.8) 04/11/21 06:47 Metamyelocytes % 1.0 % 04/11/21 06:47 Myelocytes % 0 % 04/11/21 06:47 Promyelocytes % 0 % 04/11/21 06:47 Blast Cells % 0 % 04/11/21 06:47 Nucleated RBC % Not Reportable 04/11/21 06:47 Seg Neutrophils # 5.8 K/mm3 (1.8-7.7) 03/31/21 13:30 Seg Neutrophils # Man 8.3 K/mm3 (1.8-7.7) H 04/11/21 06:47 Band Neutrophils # 0.2 K/mm3 04/11/21 06:47 Lymphocytes # (Manual) 1.1 K/mm3 (1.2-5.4) L 04/11/21 06:47 Abs React Lymphs (Man) 0.0 K/mm3 04/11/21 06:47 Monocytes # (Manual) 0.8 K/mm3 (0.0-0.8) 04/11/21 06:47 Eosinophils # (Manual) 0.4 K/mm3 (0.0-0.4) 04/11/21 06:47 Basophils # (Manual) 0.0 K/mm3 (0.0-0.1) 04/11/21 06:47 Metamyelocytes # 0.1 K/mm3 04/11/21 06:47 Myelocytes # 0.0 K/mm3 04/11/21 06:47 Promyelocytes # 0.0 K/mm3 04/11/21 06:47 Blast Cells # 0.0 K/mm3 04/11/21 06:47 WBC Morphology Not Reportable 04/11/21 06:47 Hypersegmented Neuts Not Reportable 04/11/21 06:47 Hyposegmented Neuts Not Reportable 04/11/21 06:47 Hypogranular Neuts Not Reportable 04/11/21 06:47 Smudge Cells Not Reportable 04/11/21 06:47 Toxic Granulation 1+ 04/11/21 06:47 Toxic Vacuolation Not Reportable 04/11/21 06:47 Dohle Bodies Not Reportable 04/11/21 06:47 Pelger-Huet Anomaly Not Reportable 04/11/21 06:47 Mely Rods Not Reportable 04/11/21 06:47 Platelet Estimate Consistent w auto 04/11/21 06:47 Clumped Platelets Not Reportable 04/11/21 06:47 Plt Clumps, EDTA Not Reportable 04/11/21 06:47 Large Platelets Not Reportable 04/11/21 06:47 Giant Platelets Not Reportable 04/11/21 06:47 Platelet Satelliting Not Reportable 04/11/21 06:47 Plt Morphology Comment Not Reportable 04/11/21 06:47 RBC Morphology Not Reportable 04/11/21 06:47 Dimorphic RBCs Not Reportable 04/11/21 06:47 Polychromasia Not Reportable 04/11/21 06:47 Hypochromasia Not Reportable 04/11/21 06:47 Poikilocytosis Not Reportable 04/11/21 06:47 Anisocytosis 1+ 04/11/21 06:47 Microcytosis Not Reportable 04/11/21 06:47 Macrocytosis Not Reportable 04/11/21 06:47 Spherocytes Not Reportable 04/11/21 06:47 Pappenheimer Bodies Not Reportable 04/11/21 06:47 Sickle Cells Not Reportable 04/11/21 06:47 Target Cells Not Reportable 04/11/21 06:47 Tear Drop Cells Not Reportable 04/11/21 06:47 Ovalocytes Not Reportable 04/11/21 06:47 Helmet Cells Not Reportable 04/11/21 06:47 [place] Bodies Not Reportable 04/11/21 06:47 Rozel Rings Not Reportable 04/11/21 06:47 [place] Cells Not Reportable 04/11/21 06:47 Bite Cells Not Reportable 04/11/21 06:47 Crenated Cell Not Reportable 04/11/21 06:47 Elliptocytes Not Reportable 04/11/21 06:47 Acanthocytes (Spur) Not Reportable 04/11/21 06:47 Rouleaux Not Reportable 04/11/21 06:47 Hemoglobin C Crystals Not Reportable 04/11/21 06:47 Schistocytes Not Reportable 04/11/21 06:47 Malaria parasites Not Reportable 04/11/21 06:47 Shaheen Bodies Not Reportable 04/11/21 06:47 Hem Pathologist Commnt No 04/11/21 06:47 PT 13.4 Sec. (12.2-14.9) 04/11/21 18:17 INR 0.92 (0.87-1.13) 04/11/21 18:17 APTT 61.1 Sec. (24.2-36.6) H* 04/11/21 18:17 D-Dimer 1359.12 ng/mlDDU (0-234) H 03/17/21 04:40 Heparin Anti-Xa Level 1.03 U.I./ml (0.3-0.7) H 04/12/21 05:11 ABG pH 7.503 (7.320-7.450) H 04/21/21 11:37 POC ABG pCO2 43.0 mmHg (32.0-48.0) 04/21/21 11:37 ABG pCO2 50.9 mm Hg 04/18/21 11:30 POC ABG pO2 92.3 mmHg (83-108) 04/21/21 11:37 ABG pO2 108.9 mm Hg (80.0-90.0) H 04/18/21 11:30 POC ABG HCO3 33.0 04/21/21 11:37 ABG HCO3 36.2 mmol/L (20.0-26.0) H 04/18/21 11:30 ABG O2 Saturation 98.2 (0-100) 04/21/21 11:37 ABG O2 Content 12.1 (0.0-44) 04/18/21 11:30 POC ABG Base Excess 9.0 04/21/21 11:37 ABG Base Excess 11.2 mmol/L (-2.0-3.0) H 04/18/21 11:30 ABG Hemoglobin 10.8 (12.0-17.5) L 04/21/21 11:37 ABG Oxyhemoglobin 97.8 (94-98) 04/21/21 11:37 ABG Carboxyhemoglobin 1.7 % (0.0-5.0) 04/18/21 11:30 ABG Methemoglobin 0.3 (0.0-1.5) 04/21/21 11:37 ABG Sodium 134.2 mmol/L (136.0-145.0) L 03/12/21 21:54 ABG Potassium 4.9 mmol/L (3.40-4.50) H 03/12/21 21:54 ABG Chloride 99.0 mmol/L (98-107) 03/12/21 21:54 ABG Glucose 306 mg/dL (65-95) H 03/12/21 21:54 Oxyhemoglobin 95.9 % (95.0-99.0) 04/18/21 11:30 Carboxyhemoglobin 0.1 (0.5-1.5) L 04/21/21 11:37 FiO2 40 % 04/18/21 11:30 FiO2 % 35.0 04/21/21 11:37 Sodium 136 mmol/L (137-145) L 04/29/21 05:03 Potassium 4.1 mmol/L (3.6-5.0) 04/29/21 05:03 Chloride 104.5 mmol/L (98-107) 04/29/21 05:03 Carbon Dioxide 25 mmol/L (22-30) 04/29/21 05:03 Anion Gap 11 mmol/L 04/29/21 05:03 BUN 8 mg/dL (9-20) L 04/29/21 05:03 Creatinine 0.3 mg/dL (0.8-1.3) L 04/29/21 05:03 Estimated GFR > 60 ml/min 04/29/21 05:03 BUN/Creatinine Ratio 27 % 04/29/21 05:03 Glucose 115 mg/dL (75-100) H 04/29/21 05:03 POC Glucose 117 mg/dL (70-105) H 04/30/21 06:12 Lactic Acid 1.90 mmol/L (0.7-2.0) 03/08/21 23:51 Calcium 9.1 mg/dL (8.4-10.2) 04/29/21 05:03 Phosphorus 3.70 mg/dL (2.5-4.5) 04/25/21 15:04 Magnesium 2.30 mg/dL (1.7-2.3) 04/25/21 15:04 Ferritin 976.4 ng/mL (30.0-300.0) H 03/15/21 04:00 Total Bilirubin 0.20 mg/dL (0.1-1.2) 03/12/21 08:03 AST 10 units/L (5-40) 03/12/21 08:03 ALT 16 units/L (7-56) 03/12/21 08:03 Alkaline Phosphatase 77 units/L (35-129) 03/12/21 08:03 Lactate Dehydrogenase 630 units/L (91-180) H 03/15/21 06:06 C-Reactive Protein 0.40 mg/dL (0.00-1.30) 03/17/21 04:40 NT-Pro-B Natriuret Pep 1053 pg/mL (0-900) H 03/08/21 20:24 Total Protein 6.0 g/dL (6.3-8.2) L 03/12/21 08:03 Albumin 2.9 g/dL (3.9-5) L 03/12/21 08:03 Albumin/Globulin Ratio 0.9 % 03/12/21 08:03 Triglycerides 305 mg/dL (2-149) H 03/22/21 07:26 Procalcitonin 0.19 ng/mL (<0.15) 04/18/21 04:20 Arterial Blood Glucose 306 mg/dL (65-95) H 03/12/21 21:54 Arterial Blood Ionized Calcium 5.0 mg/dL (4.6-5.3) 03/12/21 21:54 Urine Color Yellow (Yellow) 04/14/21 Unknown Urine Turbidity Clear (Clear) 04/14/21 Unknown Urine pH 8.0 (5.0-7.0) H 04/14/21 Unknown Ur Specific [place] 1.009 (1.003-1.030) 04/14/21 Unknown Urine Protein <15 mg/dl mg/dL (Negative) 04/14/21 Unknown Urine Glucose (UA) Neg mg/dL (Negative) 04/14/21 Unknown Urine Ketones Neg mg/dL (Negative) 04/14/21 Unknown Urine Blood Neg (Negative) 04/14/21 Unknown Urine Nitrite Neg (Negative) 04/14/21 Unknown Urine Bilirubin Neg (Negative) 04/14/21 Unknown Urine Urobilinogen 2.0 mg/dL (<2.0) 04/14/21 Unknown Ur Leukocyte Esterase Neg (Negative) 04/14/21 Unknown Urine WBC (Auto) < 1.0 /HPF (0.0-6.0) 04/14/21 Unknown Urine RBC (Auto) < 1.0 /HPF (0.0-6.0) 04/14/21 Unknown Urine Bacteria (Auto) 1+ /HPF (Negative) 03/09/21 04:10 Urine Mucus Few /HPF 03/09/21 04:10 Vancomycin Trough 16.8 ug/mL (5.0-20.0) 04/16/21 14:30 Coronavirus (PCR) Negative (Negative) 04/27/21 08:00 Miscellaneous Test Flexitest 1 03/16/21 13:14 Good/IV: Voiding Method Indwelling Catheter Active Medications - Current Medications Current Medications: Generic Name Dose Route Start Last Admin Trade Name Freq PRN Reason Stop Dose Admin Acetaminophen 650 mg 03/09/21 01:26 04/29/21 02:06 Acetaminophen 325 Mg Tab PO 650 mg Q4H PRN Administration Pain MILD(1-3)/Fever >100.5/RAYO Albuterol 2.5 mg 03/09/21 01:26 03/18/21 21:06 Albuterol 2.5 Mg/3 Ml Nebu IH 2.5 mg Q4HRT PRN Administration Shortness Of Breath Amlodipine Besylate 10 mg 04/27/21 10:00 04/29/21 09:41 Amlodipine 10 Mg Tab FEEDTUBE 10 mg DAILY BLANCA Administration Apixaban 5 mg 04/26/21 22:00 04/29/21 21:12 Apixaban 5 Mg Tab FEEDTUBE 5 mg Q12HR BLANCA Administration Protocol Arformoterol Tartrate 15 mcg 03/11/21 20:00 04/29/21 20:08 Arformoterol 15 Mcg/2 Ml Nebu IH 15 mcg Q12HRT BLANCA Administration Dextrose 0 ml 03/20/21 10:52 Dextrose 10% *Hypoglycemia IV PRN PRN Hypoglycemia Docusate Sodium 100 mg 04/26/21 22:00 04/29/21 21:12 Docusate Sodium 100 Mg/10 Ml Oral Liqd FEEDTUBE 100 mg BID BLANCA Administration Doxazosin Mesylate 1 mg 04/26/21 10:00 04/29/21 21:12 Doxazosin 1 Mg Tab FEEDTUBE 1 mg BID BLANCA Administration Famotidine 20 mg 03/12/21 22:00 04/29/21 21:13 Famotidine 20 Mg Tab FEEDTUBE 20 mg BID BLANCA Administration Furosemide 20 mg 04/29/21 10:00 04/29/21 09:44 Furosemide 40 Mg/4 Ml Inj IV 05/01/21 10:01 20 mg QDAY BLANCA Administration Glycopyrrolate 2 mg 04/22/21 23:42 04/29/21 21:12 Glycopyrrolate 2 Mg Tab PO 2 mg TID BLANCA Administration Hydralazine HCl 50 mg 04/26/21 14:00 04/30/21 05:07 Hydralazine 25 Mg Tab FEEDTUBE 50 mg Q8HR BLANCA Administration Cefazolin Sodium 3 gm/ Sodium 100 mls @ 100 mls/30 min 04/20/21 14:00 04/30/21 05:07 Chloride IV 05/04/21 06:29 100 mls/30 min Q8HR BLANCA Administration Protocol Insulin Glargine 18 units 04/07/21 22:00 04/29/21 22:21 Insulin Glargine 100 Units/Ml SUB-Q 18 units QHS BLANCA Administration Insulin Human Lispro 0 unit 03/11/21 18:00 04/30/21 06:17 Insulin Lispro 100 Unit/Ml SUB-Q Not Given Q6HR [facility] Protocol Metoprolol Tartrate 12.5 mg 04/26/21 22:00 04/29/21 21:12 Metoprolol Tartrate 25 Mg Tab FEEDTUBE 12.5 mg BID BLANCA Administration Ondansetron HCl 4 mg 03/09/21 01:26 04/28/21 00:23 Ondansetron 4 Mg/2 Ml Inj IV 4 mg Q8H PRN Administration Nausea And Vomiting Oxycodone HCl 5 mg 04/26/21 10:00 04/29/21 21:11 Oxycodone 5 Mg Tab FEEDTUBE 5 mg Q6HR PRN Administration Pain, Moderate (4-6) Phenyleph/Shark Oil/Min Oil/Petrol 1 applic 03/22/21 17:35 04/06/21 04:04 Pe/Mo/Pet,Wh 10 Applic/28 Gm Tube OR 1 applic Q6HR PRN Administration Hemorrhoids Scopolamine 1 each 04/19/21 13:00 04/28/21 10:47 Scopolamine Transdermal Patch 72 Hr TD 1 each Q3D BLANCA Administration Sodium Chloride 10 ml 03/09/21 10:00 04/29/21 21:13 Sodium Chloride 0.9% 10 Ml Flush Syringe IV 10 ml BID BLANCA Administration Sodium Chloride 10 ml 03/09/21 01:26 04/10/21 21:07 Sodium Chloride 0.9% 10 Ml Flush Syringe IV 10 ml PRN PRN Administration LINE FLUSH Nutrition/Malnutrition Assess - Dietary Evaluation Nutrition/Malnutrition Findings: Nutrition Notes Start: 03/09/21 08:49 Freq: Status: Active Protocol: Document 04/28/21 18:05 BRYANNA (Rec: 04/28/21 18:17 BRYANNA [id number]) Nutrition Notes Initial or Follow up Reassessment Current Diagnosis Diabetes,Sepsis,Hypertension, Respiratory Failure Other Pertinent Diagnosis COVID-19, Bilateral Pneumonia DVT of RUE.. Current Diet TF-Glucerna 1.2 Tyson @ 70 ml/hr (since D 04/08). Labs/Tests 04/28: N/A. Pertinent Medications 04/28: Nutritionally unremarkable. Height 5 ft 11 in Weight 118.6 kg [place] Body Weight (kg) 78.18 BMI 36.4 Weight change and time frame 3.8 Kg body weight loss in 1 week reported. Weight Status Obese Subjective/Other Information RD consult for routine F/U on TF tolerance. TF continues as prescribed and well tolerated, according to RN and ADL notes. Percent of energy/protein needs met: Prescribed TF-Glucerna 1.2 Tyson @ 70 ml/hr provides for energy/protein needs (2,016 Kcal/101 g) during LOS, 82% Kcal; 78% AA. Burn Absent Trauma Absent GI Symptoms None Difficulty In Swallowing Food Allergy No Skin Integrity/Comment Unspecified Area of Concern. Current % PO Other Minimum of two criteria No #1 Nutrition Diagnosis Inadequate oral intake Diagnosis Progress(for reassessment Continues documentation) Is patient on ventilator? No Is Patient Ambulatory and/or Out of Bed No REE-([facility]-confined to bed) [phone] Calculation Used for Recommendations 70-80% energy needs Additional Notes Energy needs: 6737-1275 kcal/ day Pro needs 1.3g/kg adjBW: 130g/ day Fluid needs 1ml/kcal Nutrition Intervention Nutrition Support: Continue Glucerna 1.2 Tyson @ 70 ml/hr. Flush: 110 ml water Q 4 hr, or as per MD. Kcal 2,016 Protein (gm) 101 Carbohydrates (gm) 192 Fat (gm) 101 Fluid (mL) 1,352 Fiber (gm) 27 % RDI: 82% Kcal; 78% AA. Goal #1 Provide at least 75% of energy /protein needs through Enteral Feeding during LOS. Goal #2 Maintain body weight within +/ -3% of admission body weight during LOS. Follow-Up By: 05/05/21 Additional Comments Continue monitoring TF tolerance and BM.
[2021-04-30] MEDS: ARFORMOTEROL 15 MCG/2 ML NEBU IH SCH ×2 (07:56→20:51)
[2021-04-30] MEDS: FUROSEMIDE 40 MG/4 ML INJ IV SCH (09:15)
[2021-04-30] MEDS: APIXABAN 5 MG TAB FEEDTUBE SCH ×2 (09:15→21:10)
[2021-04-30] MEDS: DOCUSATE SODIUM 100 MG/10 ML ORAL LIQD FEEDTUBE SCH ×2 (09:15→21:10)
[2021-04-30] MEDS: FAMOTIDINE 20 MG TAB FEEDTUBE SCH ×2 (09:15→21:11)
[2021-04-30] MEDS: amLODIPine 10 MG TAB FEEDTUBE SCH (09:16)
[2021-04-30] MEDS: METOPROLOL TARTRATE 25 MG TAB FEEDTUBE SCH ×2 (09:16→21:10)
[2021-04-30] MEDS: GLYCOPYRROLATE 2 MG TAB PO SCH ×3 (09:16→20:54)
[2021-04-30] MEDS: DOXAZOSIN 1 MG TAB FEEDTUBE SCH ×2 (09:24→21:09)
[2021-04-30] MEDS ORDERED: LACTULOSE 20 GM/30 ML ORAL LIQD FEEDTUBE PRN (12:30)
[2021-04-30] MEDS: oxyCODONE 5 MG TAB FEEDTUBE PRN ×2 (14:57→20:51)
--- NOTE | 2021-04-30 16:50 | Progress Note ---
Assessment and Plan 61-year-old male with past medical history of hypertension and diabetes was brought to the emergency room because of shortness of breath and hypoxia. Patient has been feeling ill for approximately a week. Patient was confused and paramedics were called. Patient's oxygen saturation levels were in the low 70s. 88-90% O2 sat on a NRB mask. Patient does state he has had some cough was unable to give much additional history on arrival. Denies nausea vomiting diarrhea. Patient has not had a COVID test atient hypoxic even on a nonrebreather at 88%. Patient placed on BiPAP and his gait has a better O2 sat and his alertness is improved as well. Patient with by lateral patchy infiltrates in all lobes consistent with COVID-pneumonia. COVID testing is ordered. Umanzor virus test came back positive. Patient given Rocephin ,azithromycin and low-dose Decadron since he is diabetic. Patient to be admitted to the hospital service. Patient also given REMDESIVIR. Later decadron switched to I/V solumedrol. Patients inflammatory markers, D dimer, ferritin CRP are elevated. patient started on anticoagulation. Patient intubated and placed on mechanical ventilation. Patient has tracheostomy, eventually weaned from the ventilator, Patient presently in IMCU. Patient Obese, Awake Patient is on T tube, FIO2 28%. O2 saturation running 100%. No acute respiratory distress. Patient afebrile. Patient has no leukocytosis. Blood pressure 131/78, Pulse 92, Respirations 22. ABGs 04/30/21 reported P.H 7.4, PCO2 40, PO2 87, HCO3 29, O2 saturation 97%, FIO2 28%. Chest xray done 04/17/21 reported Mild improvement in pulmonary opacities. Chest xray done 04/30/21 reported No adverse change. Minimal lung opacity suggesting atelectasis, edema, or infection remain present. Mild vascular congestive changes versus crowding given low lung volumes could additionally be considered I spent critical care time of 32 minutes, review the chart, examine the patient, review chest xray and lab results, talking to respiratory and nursing staff and work out plan of treatment in this critically ill Covid 19 positive patient. - Patient Problems (1) Acute respiratory failure Current Visit: Yes Status: Acute Plan to address problem: Patient is on T tube, FIO2 28%. Brovanna aerosol treatments. Continue Apixaban Continue famotidine. (2) Diabetes Current Visit: Yes Status: Acute Plan to address problem: Management as per primary care. (3) Hypertension Current Visit: Yes Status: Acute Plan to address problem: Management as per primary care. (4) Coronavirus infection Current Visit: Yes Status: Acute Plan to address problem: Patient was on I/V solumedrol, REMDESIVIR,Apixaban, ceftriaxone and zithromax. Management as per infectious disease specialists. Subjective Date of service: 04/30/21 Principal diagnosis: COVID-19 infection; DM II; Bilateral pneumonia; Obesity; HTN Interval history: 61-year-old male with past medical history of hypertension and diabetes was brought to the emergency room because of shortness of breath and hypoxia. Patient has been feeling ill for approximately a week. Patient was confused and paramedics were called. Patient's oxygen saturation levels were in the low 70s. 88-90% O2 sat on a NRB mask. Patient does state he has had some cough was unable to give much additional history on arrival. Denies nausea vomiting diarrhea. Patient has not had a COVID test Patient hypoxic even on a nonrebreather at 88%. Patient placed on BiPAP and his gait has a better O2 sat and his alertness is improved as well. Patient with by lateral patchy infiltrates in all lobes consistent with COVID-pneumonia. COVID testing is ordered. Umanzor virus test came back positive. Patient given Rocephin ,azithromycin and low-dose Decadron since he is diabetic. Patient to be admitted to the hospital service. Patient also given REMDESIVIR. Later decadron switched to I/V solumedrol. Patients inflammatory markers, D dimer, ferritin CRP are elevated. patient started on anticoagulation. Patient intubated and placed on mechanical ventilation. Patient has tracheostomy, eventually weaned from the ventilator, Patient presently in IMCU. Patient Obese, Awake Patient is on T tube, FIO2 28%. O2 saturation running 100%. No acute respiratory distress. Patient afebrile. Patient has no leukocytosis. Blood pressure 131/78, Pulse 92, Respirations 22. ABGs 04/30/21 reported P.H 7.4, PCO2 40, PO2 87, HCO3 29, O2 saturation 97%, FIO2 28%. Chest xray done 04/17/21 reported Mild improvement in pulmonary opacities. Chest xray done 04/30/21 reported No adverse change. Minimal lung opacity suggesting atelectasis, edema, or infection remain present. Mild vascular congestive changes versus crowding given low lung volumes could additionally be considered Patient is on Apixaban, Brovanna aerosol treatments, Famotidine,Glycopyrrolate and Cefazolin Objective Vital Signs - 12hr 04/30/21 04/30/21 04/30/21 05:00 06:00 07:00 Temperature Pulse Rate 99 H 106 H 101 H Pulse Rate [ Bilateral Throughout] Pulse Rate [ From Monitor] Respiratory 31 H 29 H 28 H Rate Respiratory Rate [Bilateral Throughout] Blood Pressure 150/95 135/71 133/83 O2 Sat by Pulse 97 97 98 Oximetry O2 Sat by Pulse Oximetry [ Assessment] 04/30/21 04/30/21 04/30/21 07:53 07:56 08:00 Temperature 98.7 F Pulse Rate 104 H Pulse Rate [ 98 H Bilateral Throughout] Pulse Rate [ 84 From Monitor] Respiratory 20 Rate Respiratory 18 Rate [Bilateral Throughout] Blood Pressure 142/81 O2 Sat by Pulse 100 Oximetry O2 Sat by Pulse Oximetry [ Assessment] 04/30/21 04/30/21 04/30/21 08:15 09:00 09:14 Temperature Pulse Rate 96 H Pulse Rate [ Bilateral Throughout] Pulse Rate [ From Monitor] Respiratory 21 Rate Respiratory Rate [Bilateral Throughout] Blood Pressure 128/85 O2 Sat by Pulse 100 Oximetry O2 Sat by Pulse 100 Oximetry [ Assessment] 04/30/21 04/30/21 04/30/21 09:16 09:24 10:00 Temperature Pulse Rate 99 H 98 H 91 H Pulse Rate [ Bilateral Throughout] Pulse Rate [ From Monitor] Respiratory 23 Rate Respiratory Rate [Bilateral Throughout] Blood Pressure 128/85 128/85 130/79 O2 Sat by Pulse 99 Oximetry O2 Sat by Pulse Oximetry [ Assessment] 04/30/21 04/30/21 04/30/21 11:00 11:53 12:00 Temperature 98.0 F Pulse Rate 90 90 Pulse Rate [ Bilateral Throughout] Pulse Rate [ 86 From Monitor] Respiratory 28 H 28 H Rate Respiratory Rate [Bilateral Throughout] Blood Pressure 124/77 130/80 O2 Sat by Pulse 97 Oximetry O2 Sat by Pulse Oximetry [ Assessment] 04/30/21 04/30/21 04/30/21 13:00 14:00 14:57 Temperature Pulse Rate 89 91 H 90 Pulse Rate [ Bilateral Throughout] Pulse Rate [ From Monitor] Respiratory 23 20 Rate Respiratory Rate [Bilateral Throughout] Blood Pressure 136/84 138/84 138/84 O2 Sat by Pulse 100 100 Oximetry O2 Sat by Pulse Oximetry [ Assessment] 04/30/21 15:00 Temperature Pulse Rate 90 Pulse Rate [ Bilateral Throughout] Pulse Rate [ From Monitor] Respiratory 23 Rate Respiratory Rate [Bilateral Throughout] Blood Pressure 128/79 O2 Sat by Pulse 99 Oximetry O2 Sat by Pulse Oximetry [ Assessment] Constitutional: no acute distress, alert, other (elderly obese male with mildly increased respiratory effort at rest) Eyes: non-icteric ENT: oropharynx moist, other (+ midline tracheostomy) Neck: supple, no lymphadenopathy, lymphadenopathy, no JVD, other (large circumference) Effort: mildly labored Ascultation: Bilateral: diminished breath sounds, rales, rhonchi Percussion: Bilateral: not dull Cardiovascular: regular rate and rhythm, other (tachycardia, S1,S2) Gastrointestinal: normoactive bowel sounds, soft, non-tender, non-distended (protuberant) Integumentary: normal Extremities: no cyanosis, pulses normal, no ischemia or petechiae, edema (upper extremities), other Neurologic: non-focal exam (grossly), pupils equal and round, CN II-XII normal, other (follows simple prompts) Psychiatric: mood appropriate, affect normal CBC and BMP: 04/29/21 05:03 04/29/21 05:03 ABG, PT/INR, D-dimer: ABG ABG pH 7.503 (7.320-7.450) H 04/21/21 11:37 POC ABG pCO2 43.0 mmHg (32.0-48.0) 04/21/21 11:37 ABG pCO2 50.9 mm Hg 04/18/21 11:30 POC ABG pO2 92.3 mmHg (83-108) 04/21/21 11:37 ABG pO2 108.9 mm Hg (80.0-90.0) H 04/18/21 11:30 POC ABG HCO3 33.0 04/21/21 11:37 ABG O2 Saturation 98.2 (0-100) 04/21/21 11:37 PT/INR, D-dimer PT 13.4 Sec. (12.2-14.9) 04/11/21 18:17 INR 0.92 (0.87-1.13) 04/11/21 18:17 D-Dimer 1359.12 ng/mlDDU (0-234) H 03/17/21 04:40 Abnormal lab findings: Abnormal Labs 03/08/21 03/08/21 03/08/21 20:24 20:24 20:24 WBC 22.6 H RBC 5.44 H Hgb 15.7 H Hct 49.2 H MCV MCHC RDW Plt Count Lymph % (Auto) Ada % (Auto) Lymph # (Auto) [place] # (Auto) Seg Neutrophils % Seg Neuts % (Manual) 83.0 H Lymphocytes % (Manual) 9.0 L Monocytes % (Manual) 8.0 H Nucleated RBC % Seg Neutrophils # Seg Neutrophils # Man 18.8 H Lymphocytes # (Manual) Monocytes # (Manual) 1.8 H PT 16.1 H INR 1.17 H APTT D-Dimer > 48582 H Heparin Anti-Xa Level ABG pH POC ABG pCO2 POC ABG pO2 ABG pO2 ABG HCO3 ABG O2 Saturation ABG Base Excess ABG Hemoglobin ABG Oxyhemoglobin ABG Sodium ABG Potassium ABG Glucose Oxyhemoglobin Carboxyhemoglobin Sodium 136 L Potassium Chloride 93.9 L Carbon Dioxide BUN 29 H Creatinine Glucose 208 H POC Glucose Lactic Acid Calcium Phosphorus Magnesium Ferritin Lactate Dehydrogenase 624 H C-Reactive Protein 18.00 H NT-Pro-B Natriuret Pep 1053 H Total Protein Albumin Triglycerides Arterial Blood Glucose Urine pH Ur Specific [place] Coronavirus (PCR) 03/08/21 03/08/21 03/09/21 20:24 20:24 04:10 WBC RBC Hgb Hct MCV MCHC RDW Plt Count Lymph % (Auto) [place] % (Auto) Lymph # (Auto) [place] # (Auto) Seg Neutrophils % Seg Neuts % (Manual) Lymphocytes % (Manual) Monocytes % (Manual) Nucleated RBC % Seg Neutrophils # Seg Neutrophils # Man Lymphocytes # (Manual) Monocytes # (Manual) PT INR APTT D-Dimer Heparin Anti-Xa Level ABG pH POC ABG pCO2 POC ABG pO2 ABG pO2 ABG HCO3 ABG O2 Saturation ABG Base Excess ABG Hemoglobin ABG Oxyhemoglobin ABG Sodium ABG Potassium ABG Glucose Oxyhemoglobin Carboxyhemoglobin Sodium Potassium Chloride Carbon Dioxide BUN Creatinine Glucose POC Glucose Lactic Acid 2.10 H* Calcium Phosphorus Magnesium Ferritin 877.5 H Lactate Dehydrogenase C-Reactive Protein NT-Pro-B Natriuret Pep Total Protein Albumin Triglycerides Arterial Blood Glucose Urine pH Ur Specific [place] 1.041 H Coronavirus (PCR) 03/09/21 03/09/21 03/09/21 07:46 08:00 13:01 WBC RBC Hgb Hct MCV MCHC RDW Plt Count Lymph % (Auto) [place] % (Auto) Lymph # (Auto) [place] # (Auto) Seg Neutrophils % Seg Neuts % (Manual) Lymphocytes % (Manual) Monocytes % (Manual) Nucleated RBC % Seg Neutrophils # Seg Neutrophils # Man Lymphocytes # (Manual) Monocytes # (Manual) PT INR APTT D-Dimer Heparin Anti-Xa Level ABG pH POC ABG pCO2 POC ABG pO2 ABG pO2 ABG HCO3 ABG O2 Saturation ABG Base Excess ABG Hemoglobin ABG Oxyhemoglobin ABG Sodium ABG Potassium ABG Glucose Oxyhemoglobin Carboxyhemoglobin Sodium Potassium Chloride Carbon Dioxide BUN Creatinine Glucose POC Glucose 191 H 182 H Lactic Acid Calcium Phosphorus Magnesium Ferritin Lactate Dehydrogenase C-Reactive Protein NT-Pro-B Natriuret Pep Total Protein Albumin Triglycerides Arterial Blood Glucose Urine pH Ur Specific [place] Coronavirus (PCR) Positive A 03/09/21 03/09/21 03/09/21 15:19 17:48 18:10 WBC RBC Hgb Hct MCV MCHC RDW Plt Count Lymph % (Auto) [place] % (Auto) Lymph # (Auto) [place] # (Auto) Seg Neutrophils % Seg Neuts % (Manual) Lymphocytes % (Manual) Monocytes % (Manual) Nucleated RBC % Seg Neutrophils # Seg Neutrophils # Man Lymphocytes # (Manual) Monocytes # (Manual) PT INR APTT D-Dimer Heparin Anti-Xa Level ABG pH POC ABG pCO2 POC ABG pO2 ABG pO2 47.3 L ABG HCO3 26.3 H ABG O2 Saturation 83.7 L ABG Base Excess ABG Hemoglobin ABG Oxyhemoglobin ABG Sodium ABG Potassium ABG Glucose Oxyhemoglobin 82.1 L Carboxyhemoglobin Sodium Potassium Chloride Carbon Dioxide BUN 29 H Creatinine Glucose 214 H POC Glucose 194 H Lactic Acid Calcium Phosphorus Magnesium Ferritin Lactate Dehydrogenase C-Reactive Protein NT-Pro-B Natriuret Pep Total Protein Albumin 3.4 L Triglycerides Arterial Blood Glucose Urine pH Ur Specific [place] Coronavirus (PCR) 03/09/21 03/10/21 03/10/21 20:40 04:29 04:29 WBC 20.6 H RBC 5.07 H Hgb Hct 46.2 H MCV MCHC RDW Plt Count Lymph % (Auto) [place] % (Auto) Lymph # (Auto) [place] # (Auto) Seg Neutrophils % Seg Neuts % (Manual) 94.0 H Lymphocytes % (Manual) 1.0 L Monocytes % (Manual) Nucleated RBC % 3.0 H Seg Neutrophils # Seg Neutrophils # Man 19.4 H Lymphocytes # (Manual) 0.2 L Monocytes # (Manual) 1.0 H PT INR APTT D-Dimer Heparin Anti-Xa Level ABG pH POC ABG pCO2 POC ABG pO2 ABG pO2 ABG HCO3 ABG O2 Saturation ABG Base Excess ABG Hemoglobin ABG Oxyhemoglobin ABG Sodium ABG Potassium ABG Glucose Oxyhemoglobin Carboxyhemoglobin Sodium Potassium Chloride Carbon Dioxide BUN 29 H Creatinine Glucose 188 H POC Glucose 176 H Lactic Acid Calcium Phosphorus Magnesium Ferritin Lactate Dehydrogenase C-Reactive Protein NT-Pro-B Natriuret Pep Total Protein Albumin 3.3 L Triglycerides Arterial Blood Glucose Urine pH Ur Specific [place] Coronavirus (PCR) 03/10/21 03/10/21 03/10/21 05:22 10:27 15:25 WBC RBC Hgb Hct MCV MCHC RDW Plt Count Lymph % (Auto) [place] % (Auto) Lymph # (Auto) [place] # (Auto) Seg Neutrophils % Seg Neuts % (Manual) Lymphocytes % (Manual) Monocytes % (Manual) Nucleated RBC % Seg Neutrophils # Seg Neutrophils # Man Lymphocytes # (Manual) Monocytes # (Manual) PT INR APTT D-Dimer Heparin Anti-Xa Level ABG pH 7.488 H 7.488 H POC ABG pCO2 POC ABG pO2 ABG pO2 47.7 L 50.5 L ABG HCO3 ABG O2 Saturation 86.2 L 87.9 L ABG Base Excess ABG Hemoglobin ABG Oxyhemoglobin ABG Sodium ABG Potassium ABG Glucose Oxyhemoglobin 84.6 L 86.2 L Carboxyhemoglobin Sodium Potassium Chloride Carbon Dioxide BUN Creatinine Glucose POC Glucose 155 H Lactic Acid Calcium Phosphorus Magnesium Ferritin Lactate Dehydrogenase C-Reactive Protein NT-Pro-B Natriuret Pep Total Protein Albumin Triglycerides Arterial Blood Glucose Urine pH Ur Specific [place] Coronavirus (PCR) 03/10/21 03/10/21 03/11/21 18:10 18:55 00:07 WBC RBC Hgb Hct MCV MCHC RDW Plt Count Lymph % (Auto) [place] % (Auto) Lymph # (Auto) [place] # (Auto) Seg Neutrophils % Seg Neuts % (Manual) Lymphocytes % (Manual) Monocytes % (Manual) Nucleated RBC % Seg Neutrophils # Seg Neutrophils # Man Lymphocytes # (Manual) Monocytes # (Manual) PT INR APTT D-Dimer Heparin Anti-Xa Level ABG pH 7.343 L POC ABG pCO2 POC ABG pO2 ABG pO2 60.4 L ABG HCO3 27.9 H ABG O2 Saturation 88.7 L ABG Base Excess ABG Hemoglobin ABG Oxyhemoglobin ABG Sodium ABG Potassium ABG Glucose Oxyhemoglobin 86.9 L Carboxyhemoglobin Sodium Potassium Chloride Carbon Dioxide BUN Creatinine Glucose POC Glucose 187 H 139 H Lactic Acid Calcium Phosphorus Magnesium Ferritin Lactate Dehydrogenase C-Reactive Protein NT-Pro-B Natriuret Pep Total Protein Albumin Triglycerides Arterial Blood Glucose Urine pH Ur Specific [place] Coronavirus (PCR) 03/11/21 03/11/21 03/11/21 02:09 04:28 08:06 WBC RBC Hgb Hct MCV MCHC RDW Plt Count Lymph % (Auto) [place] % (Auto) Lymph # (Auto) [place] # (Auto) Seg Neutrophils % Seg Neuts % (Manual) Lymphocytes % (Manual) Monocytes % (Manual) Nucleated RBC % Seg Neutrophils # Seg Neutrophils # Man Lymphocytes # (Manual) Monocytes # (Manual) PT INR APTT D-Dimer Heparin Anti-Xa Level ABG pH 7.277 L POC ABG pCO2 55.9 H POC ABG pO2 54.4 L ABG pO2 ABG HCO3 ABG O2 Saturation ABG Base Excess ABG Hemoglobin ABG Oxyhemoglobin 83.0 L ABG Sodium ABG Potassium 4.8 H ABG Glucose 180 H Oxyhemoglobin Carboxyhemoglobin Sodium Potassium Chloride Carbon Dioxide BUN 38 H Creatinine Glucose 249 H POC Glucose 278 H Lactic Acid Calcium Phosphorus Magnesium Ferritin Lactate Dehydrogenase C-Reactive Protein NT-Pro-B Natriuret Pep Total Protein Albumin 3.2 L Triglycerides Arterial Blood Glucose 180 H Urine pH Ur Specific [place] Coronavirus (PCR) 03/11/21 03/11/21 03/11/21 11:29 15:06 15:48 WBC RBC Hgb Hct MCV MCHC RDW Plt Count Lymph % (Auto) [place] % (Auto) Lymph # (Auto) [place] # (Auto) Seg Neutrophils % Seg Neuts % (Manual) Lymphocytes % (Manual) Monocytes % (Manual) Nucleated RBC % Seg Neutrophils # Seg Neutrophils # Man Lymphocytes # (Manual) Monocytes # (Manual) PT INR APTT D-Dimer Heparin Anti-Xa Level ABG pH 7.260 L POC ABG pCO2 POC ABG pO2 ABG pO2 53.5 L ABG HCO3 29.5 H ABG O2 Saturation 84.0 L ABG Base Excess ABG Hemoglobin ABG Oxyhemoglobin ABG Sodium ABG Potassium ABG Glucose Oxyhemoglobin 82.3 L Carboxyhemoglobin Sodium Potassium Chloride Carbon Dioxide BUN Creatinine Glucose POC Glucose 288 H 295 H Lactic Acid Calcium Phosphorus Magnesium Ferritin Lactate Dehydrogenase C-Reactive Protein NT-Pro-B Natriuret Pep Total Protein Albumin Triglycerides Arterial Blood Glucose Urine pH Ur Specific [place] Coronavirus (PCR) 03/12/21 03/12/21 03/12/21 00:01 05:24 08:03 WBC RBC Hgb Hct MCV MCHC RDW Plt Count Lymph % (Auto) [place] % (Auto) Lymph # (Auto) [place] # (Auto) Seg Neutrophils % Seg Neuts % (Manual) Lymphocytes % (Manual) Monocytes % (Manual) Nucleated RBC % Seg Neutrophils # Seg Neutrophils # Man Lymphocytes # (Manual) Monocytes # (Manual) PT INR APTT D-Dimer Heparin Anti-Xa Level ABG pH POC ABG pCO2 POC ABG pO2 ABG pO2 ABG HCO3 ABG O2 Saturation ABG Base Excess ABG Hemoglobin ABG Oxyhemoglobin ABG Sodium ABG Potassium ABG Glucose Oxyhemoglobin Carboxyhemoglobin Sodium 135 L Potassium Chloride Carbon Dioxide BUN 48 H Creatinine Glucose 358 H POC Glucose 304 H 310 H Lactic Acid Calcium Phosphorus Magnesium Ferritin Lactate Dehydrogenase C-Reactive Protein NT-Pro-B Natriuret Pep Total Protein 6.0 L Albumin 2.9 L Triglycerides Arterial Blood Glucose Urine pH Ur Specific [place] Coronavirus (PCR) 03/12/21 03/12/21 03/12/21 08:03 10:43 11:31 WBC 14.6 H RBC Hgb Hct MCV MCHC RDW Plt Count Lymph % (Auto) [place] % (Auto) Lymph # (Auto) [place] # (Auto) Seg Neutrophils % Seg Neuts % (Manual) Lymphocytes % (Manual) Monocytes % (Manual) Nucleated RBC % Seg Neutrophils # Seg Neutrophils # Man Lymphocytes # (Manual) Monocytes # (Manual) PT INR APTT D-Dimer Heparin Anti-Xa Level ABG pH 7.248 L POC ABG pCO2 POC ABG pO2 ABG pO2 73.7 L ABG HCO3 32.0 H ABG O2 Saturation 93.9 L ABG Base Excess ABG Hemoglobin ABG Oxyhemoglobin ABG Sodium ABG Potassium ABG Glucose Oxyhemoglobin 92.1 L Carboxyhemoglobin Sodium Potassium Chloride Carbon Dioxide BUN Creatinine Glucose POC Glucose 359 H Lactic Acid Calcium Phosphorus Magnesium Ferritin Lactate Dehydrogenase C-Reactive Protein NT-Pro-B Natriuret Pep Total Protein Albumin Triglycerides Arterial Blood Glucose Urine pH Ur Specific [place] Coronavirus (PCR) 03/12/21 03/12/21 03/13/21 17:20 21:54 00:02 WBC RBC Hgb Hct MCV MCHC RDW Plt Count Lymph % (Auto) [place] % (Auto) Lymph # (Auto) [place] # (Auto) Seg Neutrophils % Seg Neuts % (Manual) Lymphocytes % (Manual) Monocytes % (Manual) Nucleated RBC % Seg Neutrophils # Seg Neutrophils # Man Lymphocytes # (Manual) Monocytes # (Manual) PT INR APTT D-Dimer Heparin Anti-Xa Level ABG pH 7.238 L POC ABG pCO2 71.9 H POC ABG pO2 53.6 L ABG pO2 ABG HCO3 ABG O2 Saturation ABG Base Excess ABG Hemoglobin ABG Oxyhemoglobin 84.8 L ABG Sodium 134.2 L ABG Potassium 4.9 H ABG Glucose 306 H Oxyhemoglobin Carboxyhemoglobin Sodium Potassium Chloride Carbon Dioxide BUN Creatinine Glucose POC Glucose 374 H 308 H Lactic Acid Calcium Phosphorus Magnesium Ferritin Lactate Dehydrogenase C-Reactive Protein NT-Pro-B Natriuret Pep Total Protein Albumin Triglycerides Arterial Blood Glucose 306 H Urine pH Ur Specific [place] Coronavirus (PCR) 03/13/21 03/13/21 03/13/21 05:22 05:44 05:44 WBC 13.9 H RBC Hgb Hct MCV MCHC RDW Plt Count Lymph % (Auto) [place] % (Auto) Lymph # (Auto) [place] # (Auto) Seg Neutrophils % Seg Neuts % (Manual) Lymphocytes % (Manual) Monocytes % (Manual) Nucleated RBC % Seg Neutrophils # Seg Neutrophils # Man Lymphocytes # (Manual) Monocytes # (Manual) PT INR APTT D-Dimer 3567.97 H Heparin Anti-Xa Level ABG pH POC ABG pCO2 POC ABG pO2 ABG pO2 ABG HCO3 ABG O2 Saturation ABG Base Excess ABG Hemoglobin ABG Oxyhemoglobin ABG Sodium ABG Potassium ABG Glucose Oxyhemoglobin Carboxyhemoglobin Sodium Potassium Chloride Carbon Dioxide BUN Creatinine Glucose POC Glucose 316 H Lactic Acid Calcium Phosphorus Magnesium Ferritin Lactate Dehydrogenase C-Reactive Protein NT-Pro-B Natriuret Pep Total Protein Albumin Triglycerides Arterial Blood Glucose Urine pH Ur Specific [place] Coronavirus (PCR) 03/13/21 03/13/21 03/13/21 05:44 05:44 11:15 WBC RBC Hgb Hct MCV MCHC RDW Plt Count Lymph % (Auto) [place] % (Auto) Lymph # (Auto) [place] # (Auto) Seg Neutrophils % Seg Neuts % (Manual) Lymphocytes % (Manual) Monocytes % (Manual) Nucleated RBC % Seg Neutrophils # Seg Neutrophils # Man Lymphocytes # (Manual) Monocytes # (Manual) PT INR APTT D-Dimer Heparin Anti-Xa Level ABG pH 7.310 L POC ABG pCO2 POC ABG pO2 ABG pO2 52.3 L ABG HCO3 34.1 H ABG O2 Saturation 86.8 L ABG Base Excess 5.5 H ABG Hemoglobin 13.8 L ABG Oxyhemoglobin ABG Sodium ABG Potassium ABG Glucose Oxyhemoglobin 85.1 L Carboxyhemoglobin Sodium Potassium Chloride Carbon Dioxide BUN Creatinine Glucose POC Glucose Lactic Acid Calcium Phosphorus Magnesium Ferritin 858.7 H Lactate Dehydrogenase 348 H C-Reactive Protein 2.80 H NT-Pro-B Natriuret Pep Total Protein Albumin Triglycerides Arterial Blood Glucose Urine pH Ur Specific [place] Coronavirus (PCR) 03/13/21 03/13/21 03/13/21 11:21 15:47 19:23 WBC RBC Hgb Hct MCV MCHC RDW Plt Count Lymph % (Auto) [place] % (Auto) Lymph # (Auto) [place] # (Auto) Seg Neutrophils % Seg Neuts % (Manual) Lymphocytes % (Manual) Monocytes % (Manual) Nucleated RBC % Seg Neutrophils # Seg Neutrophils # Man Lymphocytes # (Manual) Monocytes # (Manual) PT INR APTT D-Dimer Heparin Anti-Xa Level ABG pH POC ABG pCO2 POC ABG pO2 ABG pO2 ABG HCO3 ABG O2 Saturation ABG Base Excess ABG Hemoglobin ABG Oxyhemoglobin ABG Sodium ABG Potassium ABG Glucose Oxyhemoglobin Carboxyhemoglobin Sodium 136 L Potassium 5.9 H Chloride Carbon Dioxide BUN 50 H Creatinine Glucose 397 H POC Glucose 322 H 317 H Lactic Acid Calcium Phosphorus Magnesium Ferritin Lactate Dehydrogenase C-Reactive Protein NT-Pro-B Natriuret Pep Total Protein Albumin Triglycerides Arterial Blood Glucose Urine pH Ur Specific [place] Coronavirus (PCR) 03/13/21 03/14/21 03/14/21 23:46 05:32 05:50 WBC 11.6 H RBC Hgb Hct MCV MCHC RDW Plt Count Lymph % (Auto) [place] % (Auto) Lymph # (Auto) [place] # (Auto) Seg Neutrophils % Seg Neuts % (Manual) Lymphocytes % (Manual) Monocytes % (Manual) Nucleated RBC % Seg Neutrophils # Seg Neutrophils # Man Lymphocytes # (Manual) Monocytes # (Manual) PT INR APTT D-Dimer Heparin Anti-Xa Level ABG pH POC ABG pCO2 POC ABG pO2 ABG pO2 ABG HCO3 ABG O2 Saturation ABG Base Excess ABG Hemoglobin ABG Oxyhemoglobin ABG Sodium ABG Potassium ABG Glucose Oxyhemoglobin Carboxyhemoglobin Sodium Potassium Chloride Carbon Dioxide BUN Creatinine Glucose POC Glucose 332 H 316 H Lactic Acid Calcium Phosphorus Magnesium Ferritin Lactate Dehydrogenase C-Reactive Protein NT-Pro-B Natriuret Pep Total Protein Albumin Triglycerides Arterial Blood Glucose Urine pH Ur Specific [place] Coronavirus (PCR) 03/14/21 03/14/21 03/14/21 05:50 11:33 16:53 WBC RBC Hgb Hct MCV MCHC RDW Plt Count Lymph % (Auto) [place] % (Auto) Lymph # (Auto) [place] # (Auto) Seg Neutrophils % Seg Neuts % (Manual) Lymphocytes % (Manual) Monocytes % (Manual) Nucleated RBC % Seg Neutrophils # Seg Neutrophils # Man Lymphocytes # (Manual) Monocytes # (Manual) PT INR APTT D-Dimer Heparin Anti-Xa Level ABG pH POC ABG pCO2 POC ABG pO2 ABG pO2 ABG HCO3 ABG O2 Saturation ABG Base Excess ABG Hemoglobin ABG Oxyhemoglobin ABG Sodium ABG Potassium ABG Glucose Oxyhemoglobin Carboxyhemoglobin Sodium Potassium 5.9 H Chloride Carbon Dioxide 31 H BUN 48 H Creatinine Glucose 380 H POC Glucose 315 H 235 H Lactic Acid Calcium Phosphorus Magnesium 3.40 H Ferritin Lactate Dehydrogenase C-Reactive Protein NT-Pro-B Natriuret Pep Total Protein Albumin Triglycerides Arterial Blood Glucose Urine pH Ur Specific [place] Coronavirus (PCR) 03/14/21 03/14/21 03/15/21 18:34 23:27 01:22 WBC RBC Hgb Hct 46.3 H MCV MCHC RDW Plt Count Lymph % (Auto) [place] % (Auto) Lymph # (Auto) [place] # (Auto) Seg Neutrophils % Seg Neuts % (Manual) Lymphocytes % (Manual) Monocytes % (Manual) Nucleated RBC % Seg Neutrophils # Seg Neutrophils # Man Lymphocytes # (Manual) Monocytes # (Manual) PT INR APTT D-Dimer Heparin Anti-Xa Level ABG pH POC ABG pCO2 POC ABG pO2 ABG pO2 ABG HCO3 ABG O2 Saturation ABG Base Excess ABG Hemoglobin ABG Oxyhemoglobin ABG Sodium ABG Potassium ABG Glucose Oxyhemoglobin Carboxyhemoglobin Sodium 146 H Potassium Chloride Carbon Dioxide 34 H BUN 49 H Creatinine Glucose 285 H POC Glucose 203 H Lactic Acid Calcium Phosphorus Magnesium Ferritin Lactate Dehydrogenase C-Reactive Protein NT-Pro-B Natriuret Pep Total Protein Albumin Triglycerides Arterial Blood Glucose Urine pH Ur Specific [place] Coronavirus (PCR) 03/15/21 03/15/21 03/15/21 04:00 06:06 06:06 WBC RBC Hgb Hct MCV MCHC RDW Plt Count Lymph % (Auto) [place] % (Auto) Lymph # (Auto) [place] # (Auto) Seg Neutrophils % Seg Neuts % (Manual) Lymphocytes % (Manual) Monocytes % (Manual) Nucleated RBC % Seg Neutrophils # Seg Neutrophils # Man Lymphocytes # (Manual) Monocytes # (Manual) PT INR APTT D-Dimer 1781.79 H Heparin Anti-Xa Level ABG pH POC ABG pCO2 POC ABG pO2 ABG pO2 ABG HCO3 ABG O2 Saturation ABG Base Excess ABG Hemoglobin ABG Oxyhemoglobin ABG Sodium ABG Potassium ABG Glucose Oxyhemoglobin Carboxyhemoglobin Sodium 148 H Potassium 5.7 H D Chloride 108.0 H Carbon Dioxide 31 H BUN 46 H Creatinine Glucose 139 H POC Glucose Lactic Acid Calcium Phosphorus 4.80 H D Magnesium 3.00 H Ferritin 976.4 H Lactate Dehydrogenase 630 H C-Reactive Protein NT-Pro-B Natriuret Pep Total Protein Albumin Triglycerides Arterial Blood Glucose Urine pH Ur Specific [place] Coronavirus (PCR) 03/15/21 03/15/21 03/15/21 11:56 14:05 17:09 WBC RBC Hgb Hct MCV MCHC RDW Plt Count Lymph % (Auto) [place] % (Auto) Lymph # (Auto) [place] # (Auto) Seg Neutrophils % Seg Neuts % (Manual) Lymphocytes % (Manual) Monocytes % (Manual) Nucleated RBC % Seg Neutrophils # Seg Neutrophils # Man Lymphocytes # (Manual) Monocytes # (Manual) PT INR APTT D-Dimer Heparin Anti-Xa Level ABG pH POC ABG pCO2 POC ABG pO2 ABG pO2 52.1 L ABG HCO3 36.6 H ABG O2 Saturation 87.6 L ABG Base Excess 9.5 H ABG Hemoglobin ABG Oxyhemoglobin ABG Sodium ABG Potassium ABG Glucose Oxyhemoglobin 85.7 L Carboxyhemoglobin Sodium Potassium Chloride Carbon Dioxide BUN Creatinine Glucose POC Glucose 219 H 263 H Lactic Acid Calcium Phosphorus Magnesium Ferritin Lactate Dehydrogenase C-Reactive Protein NT-Pro-B Natriuret Pep Total Protein Albumin Triglycerides Arterial Blood Glucose Urine pH Ur Specific [place] Coronavirus (PCR) 03/16/21 03/16/21 03/16/21 00:32 04:11 04:11 WBC 11.9 H RBC Hgb Hct MCV MCHC 30 L RDW Plt Count Lymph % (Auto) [place] % (Auto) Lymph # (Auto) [place] # (Auto) Seg Neutrophils % Seg Neuts % (Manual) Lymphocytes % (Manual) Monocytes % (Manual) Nucleated RBC % Seg Neutrophils # Seg Neutrophils # Man Lymphocytes # (Manual) Monocytes # (Manual) PT INR APTT D-Dimer Heparin Anti-Xa Level ABG pH POC ABG pCO2 POC ABG pO2 ABG pO2 ABG HCO3 ABG O2 Saturation ABG Base Excess ABG Hemoglobin ABG Oxyhemoglobin ABG Sodium ABG Potassium ABG Glucose Oxyhemoglobin Carboxyhemoglobin Sodium 151 H Potassium Chloride Carbon Dioxide 35 H BUN 48 H Creatinine Glucose 152 H POC Glucose 165 H Lactic Acid Calcium Phosphorus Magnesium Ferritin Lactate Dehydrogenase C-Reactive Protein NT-Pro-B Natriuret Pep Total Protein Albumin Triglycerides Arterial Blood Glucose Urine pH Ur Specific [place] Coronavirus (PCR) 03/16/21 03/16/21 03/16/21 04:11 05:26 11:35 WBC RBC Hgb Hct MCV MCHC RDW Plt Count Lymph % (Auto) [place] % (Auto) Lymph # (Auto) [place] # (Auto) Seg Neutrophils % Seg Neuts % (Manual) Lymphocytes % (Manual) Monocytes % (Manual) Nucleated RBC % Seg Neutrophils # Seg Neutrophils # Man Lymphocytes # (Manual) Monocytes # (Manual) PT INR APTT D-Dimer Heparin Anti-Xa Level ABG pH POC ABG pCO2 POC ABG pO2 ABG pO2 ABG HCO3 ABG O2 Saturation ABG Base Excess ABG Hemoglobin ABG Oxyhemoglobin ABG Sodium ABG Potassium ABG Glucose Oxyhemoglobin Carboxyhemoglobin Sodium Potassium Chloride Carbon Dioxide BUN Creatinine Glucose POC Glucose 162 H 187 H Lactic Acid Calcium Phosphorus Magnesium Ferritin Lactate Dehydrogenase C-Reactive Protein NT-Pro-B Natriuret Pep Total Protein Albumin Triglycerides 267 H Arterial Blood Glucose Urine pH Ur Specific [place] Coronavirus (PCR) 03/16/21 03/16/21 03/16/21 17:29 22:25 23:22 WBC RBC Hgb Hct MCV MCHC RDW Plt Count Lymph % (Auto) [place] % (Auto) Lymph # (Auto) [place] # (Auto) Seg Neutrophils % Seg Neuts % (Manual) Lymphocytes % (Manual) Monocytes % (Manual) Nucleated RBC % Seg Neutrophils # Seg Neutrophils # Man Lymphocytes # (Manual) Monocytes # (Manual) PT INR APTT D-Dimer Heparin Anti-Xa Level ABG pH POC ABG pCO2 POC ABG pO2 ABG pO2 ABG HCO3 ABG O2 Saturation ABG Base Excess ABG Hemoglobin ABG Oxyhemoglobin ABG Sodium ABG Potassium ABG Glucose Oxyhemoglobin Carboxyhemoglobin Sodium Potassium Chloride Carbon Dioxide BUN Creatinine Glucose POC Glucose 237 H 165 H 189 H Lactic Acid Calcium Phosphorus Magnesium Ferritin Lactate Dehydrogenase C-Reactive Protein NT-Pro-B Natriuret Pep Total Protein Albumin Triglycerides Arterial Blood Glucose Urine pH Ur Specific [place] Coronavirus (PCR) 03/17/21 03/17/21 03/17/21 04:40 04:40 04:40 WBC 14.1 H RBC Hgb Hct MCV MCHC RDW 15.3 H Plt Count Lymph % (Auto) 12.6 L [place] % (Auto) 11.3 H Lymph # (Auto) [place] # (Auto) 1.6 H Seg Neutrophils % 74.9 H Seg Neuts % (Manual) Lymphocytes % (Manual) Monocytes % (Manual) Nucleated RBC % Seg Neutrophils # 10.5 H Seg Neutrophils # Man Lymphocytes # (Manual) Monocytes # (Manual) PT INR APTT D-Dimer 1359.12 H Heparin Anti-Xa Level ABG pH POC ABG pCO2 POC ABG pO2 ABG pO2 ABG HCO3 ABG O2 Saturation ABG Base Excess ABG Hemoglobin ABG Oxyhemoglobin ABG Sodium ABG Potassium ABG Glucose Oxyhemoglobin Carboxyhemoglobin Sodium 148 H Potassium Chloride 107.5 H Carbon Dioxide 33 H BUN 42 H Creatinine Glucose 183 H POC Glucose Lactic Acid Calcium Phosphorus Magnesium 2.70 H Ferritin Lactate Dehydrogenase C-Reactive Protein NT-Pro-B Natriuret Pep Total Protein Albumin Triglycerides Arterial Blood Glucose Urine pH Ur Specific [place] Coronavirus (PCR) 03/17/21 03/17/21 03/17/21 05:53 11:05 11:51 WBC RBC Hgb Hct MCV MCHC RDW Plt Count Lymph % (Auto) [place] % (Auto) Lymph # (Auto) [place] # (Auto) Seg Neutrophils % Seg Neuts % (Manual) Lymphocytes % (Manual) Monocytes % (Manual) Nucleated RBC % Seg Neutrophils # Seg Neutrophils # Man Lymphocytes # (Manual) Monocytes # (Manual) PT INR APTT D-Dimer Heparin Anti-Xa Level ABG pH POC ABG pCO2 POC ABG pO2 ABG pO2 ABG HCO3 35.7 H ABG O2 Saturation ABG Base Excess 8.7 H ABG Hemoglobin ABG Oxyhemoglobin ABG Sodium ABG Potassium ABG Glucose Oxyhemoglobin 94.2 L Carboxyhemoglobin Sodium Potassium Chloride Carbon Dioxide BUN Creatinine Glucose POC Glucose 176 H 197 H Lactic Acid Calcium Phosphorus Magnesium Ferritin Lactate Dehydrogenase C-Reactive Protein NT-Pro-B Natriuret Pep Total Protein Albumin Triglycerides Arterial Blood Glucose Urine pH Ur Specific [place] Coronavirus (PCR) 03/17/21 03/17/21 03/17/21 16:54 21:10 23:33 WBC RBC Hgb Hct MCV MCHC RDW Plt Count Lymph % (Auto) [place] % (Auto) Lymph # (Auto) [place] # (Auto) Seg Neutrophils % Seg Neuts % (Manual) Lymphocytes % (Manual) Monocytes % (Manual) Nucleated RBC % Seg Neutrophils # Seg Neutrophils # Man Lymphocytes # (Manual) Monocytes # (Manual) PT INR APTT D-Dimer Heparin Anti-Xa Level ABG pH POC ABG pCO2 POC ABG pO2 ABG pO2 ABG HCO3 ABG O2 Saturation ABG Base Excess ABG Hemoglobin ABG Oxyhemoglobin ABG Sodium ABG Potassium ABG Glucose Oxyhemoglobin Carboxyhemoglobin Sodium Potassium Chloride Carbon Dioxide BUN Creatinine Glucose POC Glucose 135 H 160 H 138 H Lactic Acid Calcium Phosphorus Magnesium Ferritin Lactate Dehydrogenase C-Reactive Protein NT-Pro-B Natriuret Pep Total Protein Albumin Triglycerides Arterial Blood Glucose Urine pH Ur Specific [place] Coronavirus (PCR) 03/18/21 03/18/21 03/18/21 04:18 04:50 05:43 WBC RBC Hgb Hct MCV MCHC RDW Plt Count Lymph % (Auto) [place] % (Auto) Lymph # (Auto) [place] # (Auto) Seg Neutrophils % Seg Neuts % (Manual) Lymphocytes % (Manual) Monocytes % (Manual) Nucleated RBC % Seg Neutrophils # Seg Neutrophils # Man Lymphocytes # (Manual) Monocytes # (Manual) PT INR APTT D-Dimer Heparin Anti-Xa Level ABG pH POC ABG pCO2 POC ABG pO2 ABG pO2 59.8 L ABG HCO3 36.5 H ABG O2 Saturation 90.7 L ABG Base Excess 9.4 H ABG Hemoglobin 12.0 L ABG Oxyhemoglobin ABG Sodium ABG Potassium ABG Glucose Oxyhemoglobin 88.9 L Carboxyhemoglobin Sodium Potassium Chloride 107.2 H Carbon Dioxide 34 H BUN 38 H Creatinine 0.7 L Glucose 136 H POC Glucose 128 H Lactic Acid Calcium Phosphorus Magnesium Ferritin Lactate Dehydrogenase C-Reactive Protein NT-Pro-B Natriuret Pep Total Protein Albumin Triglycerides Arterial Blood Glucose Urine pH Ur Specific [place] Coronavirus (PCR) 03/18/21 03/18/21 03/18/21 11:20 17:35 23:35 WBC RBC Hgb Hct MCV MCHC RDW Plt Count Lymph % (Auto) [place] % (Auto) Lymph # (Auto) [place] # (Auto) Seg Neutrophils % Seg Neuts % (Manual) Lymphocytes % (Manual) Monocytes % (Manual) Nucleated RBC % Seg Neutrophils # Seg Neutrophils # Man Lymphocytes # (Manual) Monocytes # (Manual) PT INR APTT D-Dimer Heparin Anti-Xa Level ABG pH POC ABG pCO2 POC ABG pO2 ABG pO2 70.7 L ABG HCO3 33.6 H ABG O2 Saturation ABG Base Excess 8.0 H ABG Hemoglobin ABG Oxyhemoglobin ABG Sodium ABG Potassium ABG Glucose Oxyhemoglobin 93.7 L Carboxyhemoglobin Sodium Potassium Chloride Carbon Dioxide BUN Creatinine Glucose POC Glucose 189 H 144 H Lactic Acid Calcium Phosphorus Magnesium Ferritin Lactate Dehydrogenase C-Reactive Protein NT-Pro-B Natriuret Pep Total Protein Albumin Triglycerides Arterial Blood Glucose Urine pH Ur Specific [place] Coronavirus (PCR) 03/19/21 03/19/21 03/19/21 02:35 04:20 04:20 WBC 14.0 H RBC Hgb Hct MCV MCHC RDW Plt Count Lymph % (Auto) [place] % (Auto) Lymph # (Auto) [place] # (Auto) Seg Neutrophils % Seg Neuts % (Manual) Lymphocytes % (Manual) Monocytes % (Manual) Nucleated RBC % Seg Neutrophils # Seg Neutrophils # Man Lymphocytes # (Manual) Monocytes # (Manual) PT INR APTT D-Dimer Heparin Anti-Xa Level ABG pH POC ABG pCO2 POC ABG pO2 ABG pO2 ABG HCO3 32.0 H ABG O2 Saturation ABG Base Excess 5.2 H ABG Hemoglobin 13.6 L ABG Oxyhemoglobin ABG Sodium ABG Potassium ABG Glucose Oxyhemoglobin 94.6 L Carboxyhemoglobin Sodium 146 H Potassium Chloride 109.3 H Carbon Dioxide BUN 36 H Creatinine Glucose 203 H POC Glucose Lactic Acid Calcium Phosphorus Magnesium Ferritin Lactate Dehydrogenase C-Reactive Protein NT-Pro-B Natriuret Pep Total Protein Albumin Triglycerides 254 H Arterial Blood Glucose Urine pH Ur Specific [place] Coronavirus (PCR) 03/19/21 03/19/21 03/19/21 05:45 11:36 23:51 WBC RBC Hgb Hct MCV MCHC RDW Plt Count Lymph % (Auto) [place] % (Auto) Lymph # (Auto) [place] # (Auto) Seg Neutrophils % Seg Neuts % (Manual) Lymphocytes % (Manual) Monocytes % (Manual) Nucleated RBC % Seg Neutrophils # Seg Neutrophils # Man Lymphocytes # (Manual) Monocytes # (Manual) PT INR APTT D-Dimer Heparin Anti-Xa Level ABG pH POC ABG pCO2 POC ABG pO2 ABG pO2 ABG HCO3 ABG O2 Saturation ABG Base Excess ABG Hemoglobin ABG Oxyhemoglobin ABG Sodium ABG Potassium ABG Glucose Oxyhemoglobin Carboxyhemoglobin Sodium Potassium Chloride Carbon Dioxide BUN Creatinine Glucose POC Glucose 164 H 172 H 140 H Lactic Acid Calcium Phosphorus Magnesium Ferritin Lactate Dehydrogenase C-Reactive Protein NT-Pro-B Natriuret Pep Total Protein Albumin Triglycerides Arterial Blood Glucose Urine pH Ur Specific [place] Coronavirus (PCR) 03/20/21 03/20/21 03/20/21 03:29 04:45 04:45 WBC RBC Hgb Hct MCV 95 H MCHC RDW 15.7 H Plt Count Lymph % (Auto) [place] % (Auto) Lymph # (Auto) [place] # (Auto) Seg Neutrophils % Seg Neuts % (Manual) Lymphocytes % (Manual) Monocytes % (Manual) Nucleated RBC % Seg Neutrophils # Seg Neutrophils # Man Lymphocytes # (Manual) Monocytes # (Manual) PT INR APTT D-Dimer Heparin Anti-Xa Level ABG pH 7.349 L POC ABG pCO2 POC ABG pO2 ABG pO2 ABG HCO3 33.7 H ABG O2 Saturation ABG Base Excess 6.4 H ABG Hemoglobin 11.8 L ABG Oxyhemoglobin ABG Sodium ABG Potassium ABG Glucose Oxyhemoglobin 93.9 L Carboxyhemoglobin Sodium 146 H Potassium 5.5 H Chloride 111.1 H Carbon Dioxide BUN 34 H Creatinine 0.7 L Glucose 145 H POC Glucose Lactic Acid Calcium Phosphorus Magnesium 2.50 H Ferritin Lactate Dehydrogenase C-Reactive Protein NT-Pro-B Natriuret Pep Total Protein Albumin Triglycerides Arterial Blood Glucose Urine pH Ur Specific [place] Coronavirus (PCR) 03/20/21 03/20/21 03/20/21 05:41 09:08 11:54 WBC RBC Hgb Hct MCV MCHC RDW Plt Count Lymph % (Auto) [place] % (Auto) Lymph # (Auto) [place] # (Auto) Seg Neutrophils % Seg Neuts % (Manual) Lymphocytes % (Manual) Monocytes % (Manual) Nucleated RBC % Seg Neutrophils # Seg Neutrophils # Man Lymphocytes # (Manual) Monocytes # (Manual) PT INR APTT D-Dimer Heparin Anti-Xa Level ABG pH POC ABG pCO2 POC ABG pO2 ABG pO2 ABG HCO3 ABG O2 Saturation ABG Base Excess ABG Hemoglobin ABG Oxyhemoglobin ABG Sodium ABG Potassium ABG Glucose Oxyhemoglobin Carboxyhemoglobin Sodium Potassium Chloride Carbon Dioxide BUN Creatinine Glucose POC Glucose 108 H 132 H 162 H Lactic Acid Calcium Phosphorus Magnesium Ferritin Lactate Dehydrogenase C-Reactive Protein NT-Pro-B Natriuret Pep Total Protein Albumin Triglycerides Arterial Blood Glucose Urine pH Ur Specific [place] Coronavirus (PCR) 03/20/21 03/21/21 03/21/21 17:28 00:31 04:44 WBC RBC Hgb Hct MCV MCHC RDW Plt Count Lymph % (Auto) [place] % (Auto) Lymph # (Auto) [place] # (Auto) Seg Neutrophils % Seg Neuts % (Manual) Lymphocytes % (Manual) Monocytes % (Manual) Nucleated RBC % Seg Neutrophils # Seg Neutrophils # Man Lymphocytes # (Manual) Monocytes # (Manual) PT INR APTT D-Dimer Heparin Anti-Xa Level ABG pH POC ABG pCO2 POC ABG pO2 ABG pO2 ABG HCO3 ABG O2 Saturation ABG Base Excess ABG Hemoglobin ABG Oxyhemoglobin ABG Sodium ABG Potassium ABG Glucose Oxyhemoglobin Carboxyhemoglobin Sodium Potassium Chloride 108.3 H Carbon Dioxide BUN 30 H Creatinine 0.7 L Glucose POC Glucose 160 H 122 H Lactic Acid Calcium Phosphorus Magnesium Ferritin Lactate Dehydrogenase C-Reactive Protein NT-Pro-B Natriuret Pep Total Protein Albumin Triglycerides Arterial Blood Glucose Urine pH Ur Specific [place] Coronavirus (PCR) 03/21/21 03/21/21 03/21/21 09:18 10:09 13:20 WBC RBC Hgb Hct MCV MCHC RDW Plt Count Lymph % (Auto) [place] % (Auto) Lymph # (Auto) [place] # (Auto) Seg Neutrophils % Seg Neuts % (Manual) Lymphocytes % (Manual) Monocytes % (Manual) Nucleated RBC % Seg Neutrophils # Seg Neutrophils # Man Lymphocytes # (Manual) Monocytes # (Manual) PT INR APTT D-Dimer Heparin Anti-Xa Level ABG pH POC ABG pCO2 POC ABG pO2 ABG pO2 60.7 L ABG HCO3 30.6 H ABG O2 Saturation 93.6 L ABG Base Excess 5.3 H ABG Hemoglobin ABG Oxyhemoglobin ABG Sodium ABG Potassium ABG Glucose Oxyhemoglobin 91.7 L Carboxyhemoglobin Sodium Potassium Chloride Carbon Dioxide BUN Creatinine Glucose POC Glucose 169 H 122 H Lactic Acid Calcium Phosphorus Magnesium Ferritin Lactate Dehydrogenase C-Reactive Protein NT-Pro-B Natriuret Pep Total Protein Albumin Triglycerides Arterial Blood Glucose Urine pH Ur Specific [place] Coronavirus (PCR) 03/21/21 03/21/21 03/21/21 17:25 22:41 23:52 WBC RBC Hgb Hct MCV MCHC RDW Plt Count Lymph % (Auto) [place] % (Auto) Lymph # (Auto) [place] # (Auto) Seg Neutrophils % Seg Neuts % (Manual) Lymphocytes % (Manual) Monocytes % (Manual) Nucleated RBC % Seg Neutrophils # Seg Neutrophils # Man Lymphocytes # (Manual) Monocytes # (Manual) PT INR APTT D-Dimer Heparin Anti-Xa Level ABG pH POC ABG pCO2 POC ABG pO2 ABG pO2 ABG HCO3 ABG O2 Saturation ABG Base Excess ABG Hemoglobin ABG Oxyhemoglobin ABG Sodium ABG Potassium ABG Glucose Oxyhemoglobin Carboxyhemoglobin Sodium Potassium Chloride Carbon Dioxide BUN Creatinine Glucose POC Glucose 121 H 139 H 140 H Lactic Acid Calcium Phosphorus Magnesium Ferritin Lactate Dehydrogenase C-Reactive Protein NT-Pro-B Natriuret Pep Total Protein Albumin Triglycerides Arterial Blood Glucose Urine pH Ur Specific [place] Coronavirus (PCR) 03/22/21 03/22/21 03/22/21 05:58 07:26 07:26 WBC RBC Hgb Hct MCV MCHC 31 L RDW 16.1 H Plt Count Lymph % (Auto) [place] % (Auto) Lymph # (Auto) [place] # (Auto) Seg Neutrophils % Seg Neuts % (Manual) Lymphocytes % (Manual) Monocytes % (Manual) Nucleated RBC % Seg Neutrophils # Seg Neutrophils # Man Lymphocytes # (Manual) Monocytes # (Manual) PT INR APTT D-Dimer Heparin Anti-Xa Level ABG pH POC ABG pCO2 POC ABG pO2 ABG pO2 ABG HCO3 ABG O2 Saturation ABG Base Excess ABG Hemoglobin ABG Oxyhemoglobin ABG Sodium ABG Potassium ABG Glucose Oxyhemoglobin Carboxyhemoglobin Sodium Potassium Chloride 108.5 H Carbon Dioxide BUN 44 H Creatinine Glucose 120 H POC Glucose 131 H Lactic Acid Calcium Phosphorus 5.80 H Magnesium 2.80 H Ferritin Lactate Dehydrogenase C-Reactive Protein NT-Pro-B Natriuret Pep Total Protein Albumin Triglycerides 305 H Arterial Blood Glucose Urine pH Ur Specific [place] Coronavirus (PCR) 03/22/21 03/22/21 03/22/21 09:38 11:15 16:01 WBC RBC Hgb Hct MCV MCHC RDW Plt Count Lymph % (Auto) [place] % (Auto) Lymph # (Auto) [place] # (Auto) Seg Neutrophils % Seg Neuts % (Manual) Lymphocytes % (Manual) Monocytes % (Manual) Nucleated RBC % Seg Neutrophils # Seg Neutrophils # Man Lymphocytes # (Manual) Monocytes # (Manual) PT INR APTT D-Dimer Heparin Anti-Xa Level ABG pH POC ABG pCO2 POC ABG pO2 ABG pO2 70.0 L ABG HCO3 30.0 H ABG O2 Saturation 94.6 L ABG Base Excess 3.6 H ABG Hemoglobin 13.5 L ABG Oxyhemoglobin ABG Sodium ABG Potassium ABG Glucose Oxyhemoglobin 92.5 L Carboxyhemoglobin Sodium Potassium Chloride Carbon Dioxide BUN Creatinine Glucose POC Glucose 186 H 148 H Lactic Acid Calcium Phosphorus Magnesium Ferritin Lactate Dehydrogenase C-Reactive Protein NT-Pro-B Natriuret Pep Total Protein Albumin Triglycerides Arterial Blood Glucose Urine pH Ur Specific [place] Coronavirus (PCR) 03/22/21 03/22/21 03/23/21 21:13 23:48 07:04 WBC 11.7 H RBC Hgb Hct MCV 95 H MCHC RDW 16.1 H Plt Count Lymph % (Auto) [place] % (Auto) Lymph # (Auto) [place] # (Auto) Seg Neutrophils % Seg Neuts % (Manual) Lymphocytes % (Manual) Monocytes % (Manual) Nucleated RBC % Seg Neutrophils # Seg Neutrophils # Man Lymphocytes # (Manual) Monocytes # (Manual) PT INR APTT D-Dimer Heparin Anti-Xa Level ABG pH POC ABG pCO2 POC ABG pO2 ABG pO2 ABG HCO3 ABG O2 Saturation ABG Base Excess ABG Hemoglobin ABG Oxyhemoglobin ABG Sodium ABG Potassium ABG Glucose Oxyhemoglobin Carboxyhemoglobin Sodium Potassium Chloride Carbon Dioxide BUN Creatinine Glucose POC Glucose 121 H 114 H Lactic Acid Calcium Phosphorus Magnesium Ferritin Lactate Dehydrogenase C-Reactive Protein NT-Pro-B Natriuret Pep Total Protein Albumin Triglycerides Arterial Blood Glucose Urine pH Ur Specific [place] Coronavirus (PCR) 03/23/21 03/23/21 03/23/21 07:04 08:35 11:19 WBC RBC Hgb Hct MCV MCHC RDW Plt Count Lymph % (Auto) [place] % (Auto) Lymph # (Auto) [place] # (Auto) Seg Neutrophils % Seg Neuts % (Manual) Lymphocytes % (Manual) Monocytes % (Manual) Nucleated RBC % Seg Neutrophils # Seg Neutrophils # Man Lymphocytes # (Manual) Monocytes # (Manual) PT INR APTT D-Dimer Heparin Anti-Xa Level ABG pH 7.345 L POC ABG pCO2 POC ABG pO2 ABG pO2 167.9 H ABG HCO3 32.2 H ABG O2 Saturation ABG Base Excess 4.8 H ABG Hemoglobin 13.4 L ABG Oxyhemoglobin ABG Sodium ABG Potassium ABG Glucose Oxyhemoglobin Carboxyhemoglobin Sodium 148 H Potassium Chloride 111.3 H Carbon Dioxide 31 H BUN 31 H Creatinine Glucose 131 H POC Glucose 165 H Lactic Acid Calcium Phosphorus Magnesium 2.50 H Ferritin Lactate Dehydrogenase C-Reactive Protein NT-Pro-B Natriuret Pep Total Protein Albumin Triglycerides Arterial Blood Glucose Urine pH Ur Specific [place] Coronavirus (PCR) 03/23/21 03/23/21 03/24/21 16:48 20:52 00:07 WBC RBC Hgb Hct MCV MCHC RDW Plt Count Lymph % (Auto) [place] % (Auto) Lymph # (Auto) [place] # (Auto) Seg Neutrophils % Seg Neuts % (Manual) Lymphocytes % (Manual) Monocytes % (Manual) Nucleated RBC % Seg Neutrophils # Seg Neutrophils # Man Lymphocytes # (Manual) Monocytes # (Manual) PT INR APTT D-Dimer Heparin Anti-Xa Level ABG pH POC ABG pCO2 POC ABG pO2 ABG pO2 ABG HCO3 ABG O2 Saturation ABG Base Excess ABG Hemoglobin ABG Oxyhemoglobin ABG Sodium ABG Potassium ABG Glucose Oxyhemoglobin Carboxyhemoglobin Sodium Potassium Chloride Carbon Dioxide BUN Creatinine Glucose POC Glucose 160 H 127 H 147 H Lactic Acid Calcium Phosphorus Magnesium Ferritin Lactate Dehydrogenase C-Reactive Protein NT-Pro-B Natriuret Pep Total Protein Albumin Triglycerides Arterial Blood Glucose Urine pH Ur Specific [place] Coronavirus (PCR) 03/24/21 03/24/21 03/24/21 04:34 04:34 05:20 WBC 13.3 H RBC Hgb Hct MCV MCHC 31 L RDW 16.1 H Plt Count Lymph % (Auto) [place] % (Auto) Lymph # (Auto) [place] # (Auto) Seg Neutrophils % Seg Neuts % (Manual) Lymphocytes % (Manual) Monocytes % (Manual) Nucleated RBC % Seg Neutrophils # Seg Neutrophils # Man Lymphocytes # (Manual) Monocytes # (Manual) PT INR APTT D-Dimer Heparin Anti-Xa Level ABG pH POC ABG pCO2 POC ABG pO2 ABG pO2 ABG HCO3 ABG O2 Saturation ABG Base Excess ABG Hemoglobin ABG Oxyhemoglobin ABG Sodium ABG Potassium ABG Glucose Oxyhemoglobin Carboxyhemoglobin Sodium Potassium 5.2 H Chloride Carbon Dioxide BUN 28 H Creatinine 0.7 L Glucose 152 H POC Glucose 141 H Lactic Acid Calcium Phosphorus Magnesium Ferritin Lactate Dehydrogenase C-Reactive Protein NT-Pro-B Natriuret Pep Total Protein Albumin Triglycerides Arterial Blood Glucose Urine pH Ur Specific [place] Coronavirus (PCR) 03/24/21 03/24/21 03/24/21 09:40 11:38 16:45 WBC RBC Hgb Hct MCV MCHC RDW Plt Count Lymph % (Auto) [place] % (Auto) Lymph # (Auto) [place] # (Auto) Seg Neutrophils % Seg Neuts % (Manual) Lymphocytes % (Manual) Monocytes % (Manual) Nucleated RBC % Seg Neutrophils # Seg Neutrophils # Man Lymphocytes # (Manual) Monocytes # (Manual) PT INR APTT D-Dimer Heparin Anti-Xa Level ABG pH POC ABG pCO2 POC ABG pO2 ABG pO2 ABG HCO3 ABG O2 Saturation ABG Base Excess ABG Hemoglobin ABG Oxyhemoglobin ABG Sodium ABG Potassium ABG Glucose Oxyhemoglobin Carboxyhemoglobin Sodium Potassium Chloride Carbon Dioxide BUN Creatinine Glucose POC Glucose 126 H 136 H 118 H Lactic Acid Calcium Phosphorus Magnesium Ferritin Lactate Dehydrogenase C-Reactive Protein NT-Pro-B Natriuret Pep Total Protein Albumin Triglycerides Arterial Blood Glucose Urine pH Ur Specific [place] Coronavirus (PCR) 03/24/21 03/24/21 03/25/21 21:03 23:49 04:32 WBC RBC Hgb Hct MCV MCHC RDW 16.1 H Plt Count 121 L Lymph % (Auto) [place] % (Auto) Lymph # (Auto) [place] # (Auto) Seg Neutrophils % Seg Neuts % (Manual) Lymphocytes % (Manual) Monocytes % (Manual) Nucleated RBC % Seg Neutrophils # Seg Neutrophils # Man Lymphocytes # (Manual) Monocytes # (Manual) PT INR APTT D-Dimer Heparin Anti-Xa Level ABG pH POC ABG pCO2 POC ABG pO2 ABG pO2 ABG HCO3 ABG O2 Saturation ABG Base Excess ABG Hemoglobin ABG Oxyhemoglobin ABG Sodium ABG Potassium ABG Glucose Oxyhemoglobin Carboxyhemoglobin Sodium Potassium Chloride Carbon Dioxide BUN Creatinine Glucose POC Glucose 116 H 125 H Lactic Acid Calcium Phosphorus Magnesium Ferritin Lactate Dehydrogenase C-Reactive Protein NT-Pro-B Natriuret Pep Total Protein Albumin Triglycerides Arterial Blood Glucose Urine pH Ur Specific [place] Coronavirus (PCR) 03/25/21 03/25/21 03/25/21 04:32 05:21 09:29 WBC RBC Hgb Hct MCV MCHC RDW Plt Count Lymph % (Auto) [place] % (Auto) Lymph # (Auto) [place] # (Auto) Seg Neutrophils % Seg Neuts % (Manual) Lymphocytes % (Manual) Monocytes % (Manual) Nucleated RBC % Seg Neutrophils # Seg Neutrophils # Man Lymphocytes # (Manual) Monocytes # (Manual) PT INR APTT D-Dimer Heparin Anti-Xa Level ABG pH POC ABG pCO2 POC ABG pO2 ABG pO2 ABG HCO3 ABG O2 Saturation ABG Base Excess ABG Hemoglobin ABG Oxyhemoglobin ABG Sodium ABG Potassium ABG Glucose Oxyhemoglobin Carboxyhemoglobin Sodium 135 L D Potassium Chloride Carbon Dioxide BUN 25 H Creatinine 0.7 L Glucose 168 H POC Glucose 149 H 115 H Lactic Acid Calcium Phosphorus Magnesium Ferritin Lactate Dehydrogenase C-Reactive Protein NT-Pro-B Natriuret Pep Total Protein Albumin Triglycerides Arterial Blood Glucose Urine pH Ur Specific [place] Coronavirus (PCR) 03/25/21 03/25/21 03/25/21 12:26 12:35 23:53 WBC RBC Hgb Hct MCV MCHC RDW Plt Count Lymph % (Auto) [place] % (Auto) Lymph # (Auto) [place] # (Auto) Seg Neutrophils % Seg Neuts % (Manual) Lymphocytes % (Manual) Monocytes % (Manual) Nucleated RBC % Seg Neutrophils # Seg Neutrophils # Man Lymphocytes # (Manual) Monocytes # (Manual) PT INR APTT D-Dimer Heparin Anti-Xa Level ABG pH POC ABG pCO2 POC ABG pO2 ABG pO2 100.5 H ABG HCO3 33.6 H ABG O2 Saturation ABG Base Excess 6.4 H ABG Hemoglobin 12.0 L ABG Oxyhemoglobin ABG Sodium ABG Potassium ABG Glucose Oxyhemoglobin Carboxyhemoglobin Sodium Potassium Chloride Carbon Dioxide BUN Creatinine Glucose POC Glucose 108 H 137 H Lactic Acid Calcium Phosphorus Magnesium Ferritin Lactate Dehydrogenase C-Reactive Protein NT-Pro-B Natriuret Pep Total Protein Albumin Triglycerides Arterial Blood Glucose Urine pH Ur Specific [place] Coronavirus (PCR) 03/26/21 03/26/21 03/26/21 05:14 07:09 07:09 WBC RBC Hgb Hct MCV MCHC RDW 16.5 H Plt Count 139 L Lymph % (Auto) [place] % (Auto) Lymph # (Auto) [place] # (Auto) Seg Neutrophils % Seg Neuts % (Manual) Lymphocytes % (Manual) Monocytes % (Manual) Nucleated RBC % Seg Neutrophils # Seg Neutrophils # Man Lymphocytes # (Manual) Monocytes # (Manual) PT INR APTT D-Dimer Heparin Anti-Xa Level ABG pH POC ABG pCO2 POC ABG pO2 ABG pO2 ABG HCO3 ABG O2 Saturation ABG Base Excess ABG Hemoglobin ABG Oxyhemoglobin ABG Sodium ABG Potassium ABG Glucose Oxyhemoglobin Carboxyhemoglobin Sodium Potassium Chloride Carbon Dioxide BUN 22 H Creatinine 0.7 L Glucose 108 H POC Glucose 116 H Lactic Acid Calcium Phosphorus Magnesium Ferritin Lactate Dehydrogenase C-Reactive Protein NT-Pro-B Natriuret Pep Total Protein Albumin Triglycerides Arterial Blood Glucose Urine pH Ur Specific [place] Coronavirus (PCR) 03/26/21 03/26/21 03/26/21 09:51 11:15 16:59 WBC RBC Hgb Hct MCV MCHC RDW Plt Count Lymph % (Auto) [place] % (Auto) Lymph # (Auto) [place] # (Auto) Seg Neutrophils % Seg Neuts % (Manual) Lymphocytes % (Manual) Monocytes % (Manual) Nucleated RBC % Seg Neutrophils # Seg Neutrophils # Man Lymphocytes # (Manual) Monocytes # (Manual) PT INR APTT D-Dimer Heparin Anti-Xa Level ABG pH POC ABG pCO2 POC ABG pO2 ABG pO2 ABG HCO3 ABG O2 Saturation ABG Base Excess ABG Hemoglobin ABG Oxyhemoglobin ABG Sodium ABG Potassium ABG Glucose Oxyhemoglobin Carboxyhemoglobin Sodium Potassium Chloride Carbon Dioxide BUN Creatinine Glucose POC Glucose 107 H 119 H 174 H Lactic Acid Calcium Phosphorus Magnesium Ferritin Lactate Dehydrogenase C-Reactive Protein NT-Pro-B Natriuret Pep Total Protein Albumin Triglycerides Arterial Blood Glucose Urine pH Ur Specific [place] Coronavirus (PCR) 03/26/21 03/27/21 03/27/21 22:18 07:08 10:28 WBC RBC Hgb Hct MCV 95 H MCHC RDW 16.2 H Plt Count 134 L Lymph % (Auto) [place] % (Auto) Lymph # (Auto) [place] # (Auto) Seg Neutrophils % Seg Neuts % (Manual) Lymphocytes % (Manual) Monocytes % (Manual) Nucleated RBC % Seg Neutrophils # Seg Neutrophils # Man Lymphocytes # (Manual) Monocytes # (Manual) PT INR APTT D-Dimer Heparin Anti-Xa Level ABG pH POC ABG pCO2 POC ABG pO2 ABG pO2 ABG HCO3 ABG O2 Saturation ABG Base Excess ABG Hemoglobin ABG Oxyhemoglobin ABG Sodium ABG Potassium ABG Glucose Oxyhemoglobin Carboxyhemoglobin Sodium Potassium Chloride Carbon Dioxide BUN Creatinine Glucose POC Glucose 107 H 52 L Lactic Acid Calcium Phosphorus Magnesium Ferritin Lactate Dehydrogenase C-Reactive Protein NT-Pro-B Natriuret Pep Total Protein Albumin Triglycerides Arterial Blood Glucose Urine pH Ur Specific [place] Coronavirus (PCR) 03/27/21 03/27/21 03/27/21 10:28 11:45 17:39 WBC RBC Hgb Hct MCV MCHC RDW Plt Count Lymph % (Auto) [place] % (Auto) Lymph # (Auto) [place] # (Auto) Seg Neutrophils % Seg Neuts % (Manual) Lymphocytes % (Manual) Monocytes % (Manual) Nucleated RBC % Seg Neutrophils # Seg Neutrophils # Man Lymphocytes # (Manual) Monocytes # (Manual) PT INR APTT D-Dimer Heparin Anti-Xa Level ABG pH POC ABG pCO2 POC ABG pO2 ABG pO2 ABG HCO3 ABG O2 Saturation ABG Base Excess ABG Hemoglobin ABG Oxyhemoglobin ABG Sodium ABG Potassium ABG Glucose Oxyhemoglobin Carboxyhemoglobin Sodium 136 L Potassium Chloride Carbon Dioxide BUN Creatinine 0.7 L Glucose 150 H POC Glucose 121 H 165 H Lactic Acid Calcium Phosphorus Magnesium Ferritin Lactate Dehydrogenase C-Reactive Protein NT-Pro-B Natriuret Pep Total Protein Albumin Triglycerides Arterial Blood Glucose Urine pH Ur Specific [place] Coronavirus (PCR) 03/28/21 03/28/21 03/28/21 07:14 11:42 18:22 WBC RBC Hgb Hct MCV MCHC RDW 16.4 H Plt Count Lymph % (Auto) [place] % (Auto) Lymph # (Auto) [place] # (Auto) Seg Neutrophils % Seg Neuts % (Manual) Lymphocytes % (Manual) Monocytes % (Manual) Nucleated RBC % Seg Neutrophils # Seg Neutrophils # Man Lymphocytes # (Manual) Monocytes # (Manual) PT INR APTT D-Dimer Heparin Anti-Xa Level ABG pH POC ABG pCO2 POC ABG pO2 ABG pO2 ABG HCO3 ABG O2 Saturation ABG Base Excess ABG Hemoglobin ABG Oxyhemoglobin ABG Sodium ABG Potassium ABG Glucose Oxyhemoglobin Carboxyhemoglobin Sodium Potassium Chloride Carbon Dioxide BUN Creatinine Glucose POC Glucose 145 H 169 H Lactic Acid Calcium Phosphorus Magnesium Ferritin Lactate Dehydrogenase C-Reactive Protein NT-Pro-B Natriuret Pep Total Protein Albumin Triglycerides Arterial Blood Glucose Urine pH Ur Specific [place] Coronavirus (PCR) 03/28/21 03/29/21 03/29/21 23:39 04:50 04:50 WBC RBC Hgb 11.0 L Hct 34.9 L MCV MCHC RDW 15.9 H Plt Count Lymph % (Auto) [place] % (Auto) Lymph # (Auto) [place] # (Auto) Seg Neutrophils % Seg Neuts % (Manual) Lymphocytes % (Manual) Monocytes % (Manual) Nucleated RBC % Seg Neutrophils # Seg Neutrophils # Man Lymphocytes # (Manual) Monocytes # (Manual) PT INR APTT D-Dimer Heparin Anti-Xa Level ABG pH POC ABG pCO2 POC ABG pO2 ABG pO2 ABG HCO3 ABG O2 Saturation ABG Base Excess ABG Hemoglobin ABG Oxyhemoglobin ABG Sodium ABG Potassium ABG Glucose Oxyhemoglobin Carboxyhemoglobin Sodium Potassium Chloride Carbon Dioxide 34 H BUN Creatinine 0.6 L Glucose 152 H POC Glucose 139 H Lactic Acid Calcium Phosphorus Magnesium Ferritin Lactate Dehydrogenase C-Reactive Protein NT-Pro-B Natriuret Pep Total Protein Albumin Triglycerides Arterial Blood Glucose Urine pH Ur Specific [place] Coronavirus (PCR) 03/29/21 03/29/21 03/29/21 05:25 11:34 18:02 WBC RBC Hgb Hct MCV MCHC RDW Plt Count Lymph % (Auto) [place] % (Auto) Lymph # (Auto) [place] # (Auto) Seg Neutrophils % Seg Neuts % (Manual) Lymphocytes % (Manual) Monocytes % (Manual) Nucleated RBC % Seg Neutrophils # Seg Neutrophils # Man Lymphocytes # (Manual) Monocytes # (Manual) PT INR APTT D-Dimer Heparin Anti-Xa Level ABG pH POC ABG pCO2 POC ABG pO2 ABG pO2 ABG HCO3 ABG O2 Saturation ABG Base Excess ABG Hemoglobin ABG Oxyhemoglobin ABG Sodium ABG Potassium ABG Glucose Oxyhemoglobin Carboxyhemoglobin Sodium Potassium Chloride Carbon Dioxide BUN Creatinine Glucose POC Glucose 127 H 169 H 173 H Lactic Acid Calcium Phosphorus Magnesium Ferritin Lactate Dehydrogenase C-Reactive Protein NT-Pro-B Natriuret Pep Total Protein Albumin Triglycerides Arterial Blood Glucose Urine pH Ur Specific [place] Coronavirus (PCR) 03/29/21 03/30/21 03/30/21 21:42 00:01 05:36 WBC RBC Hgb Hct MCV MCHC RDW 16.7 H Plt Count Lymph % (Auto) [place] % (Auto) Lymph # (Auto) [place] # (Auto) Seg Neutrophils % Seg Neuts % (Manual) Lymphocytes % (Manual) Monocytes % (Manual) Nucleated RBC % Seg Neutrophils # Seg Neutrophils # Man Lymphocytes # (Manual) Monocytes # (Manual) PT INR APTT D-Dimer Heparin Anti-Xa Level ABG pH POC ABG pCO2 POC ABG pO2 ABG pO2 ABG HCO3 ABG O2 Saturation ABG Base Excess ABG Hemoglobin ABG Oxyhemoglobin ABG Sodium ABG Potassium ABG Glucose Oxyhemoglobin Carboxyhemoglobin Sodium Potassium Chloride Carbon Dioxide BUN Creatinine Glucose POC Glucose 184 H 161 H Lactic Acid Calcium Phosphorus Magnesium Ferritin Lactate Dehydrogenase C-Reactive Protein NT-Pro-B Natriuret Pep Total Protein Albumin Triglycerides Arterial Blood Glucose Urine pH Ur Specific [place] Coronavirus (PCR) 03/30/21 03/30/21 03/30/21 05:36 06:03 11:32 WBC RBC Hgb Hct MCV MCHC RDW Plt Count Lymph % (Auto) [place] % (Auto) Lymph # (Auto) [place] # (Auto) Seg Neutrophils % Seg Neuts % (Manual) Lymphocytes % (Manual) Monocytes % (Manual) Nucleated RBC % Seg Neutrophils # Seg Neutrophils # Man Lymphocytes # (Manual) Monocytes # (Manual) PT INR APTT D-Dimer Heparin Anti-Xa Level ABG pH POC ABG pCO2 POC ABG pO2 ABG pO2 ABG HCO3 ABG O2 Saturation ABG Base Excess ABG Hemoglobin ABG Oxyhemoglobin ABG Sodium ABG Potassium ABG Glucose Oxyhemoglobin Carboxyhemoglobin Sodium Potassium Chloride Carbon Dioxide BUN Creatinine 0.5 L Glucose 127 H POC Glucose 130 H 183 H Lactic Acid Calcium Phosphorus Magnesium Ferritin Lactate Dehydrogenase C-Reactive Protein NT-Pro-B Natriuret Pep Total Protein Albumin Triglycerides Arterial Blood Glucose Urine pH Ur Specific [place] Coronavirus (PCR) 03/30/21 03/30/21 03/30/21 15:00 16:23 21:07 WBC RBC Hgb Hct MCV MCHC RDW Plt Count Lymph % (Auto) [place] % (Auto) Lymph # (Auto) [place] # (Auto) Seg Neutrophils % Seg Neuts % (Manual) Lymphocytes % (Manual) Monocytes % (Manual) Nucleated RBC % Seg Neutrophils # Seg Neutrophils # Man Lymphocytes # (Manual) Monocytes # (Manual) PT INR APTT D-Dimer Heparin Anti-Xa Level ABG pH POC ABG pCO2 POC ABG pO2 ABG pO2 67.2 L ABG HCO3 34.9 H ABG O2 Saturation ABG Base Excess 9.1 H ABG Hemoglobin 11.6 L ABG Oxyhemoglobin ABG Sodium ABG Potassium ABG Glucose Oxyhemoglobin 93.0 L Carboxyhemoglobin Sodium Potassium Chloride Carbon Dioxide BUN Creatinine Glucose POC Glucose 162 H 146 H Lactic Acid Calcium Phosphorus Magnesium Ferritin Lactate Dehydrogenase C-Reactive Protein NT-Pro-B Natriuret Pep Total Protein Albumin Triglycerides Arterial Blood Glucose Urine pH Ur Specific [place] Coronavirus (PCR) 03/30/21 03/31/21 03/31/21 23:23 05:44 11:19 WBC RBC Hgb Hct MCV MCHC RDW Plt Count Lymph % (Auto) [place] % (Auto) Lymph # (Auto) [place] # (Auto) Seg Neutrophils % Seg Neuts % (Manual) Lymphocytes % (Manual) Monocytes % (Manual) Nucleated RBC % Seg Neutrophils # Seg Neutrophils # Man Lymphocytes # (Manual) Monocytes # (Manual) PT INR APTT D-Dimer Heparin Anti-Xa Level ABG pH POC ABG pCO2 POC ABG pO2 ABG pO2 ABG HCO3 ABG O2 Saturation ABG Base Excess ABG Hemoglobin ABG Oxyhemoglobin ABG Sodium ABG Potassium ABG Glucose Oxyhemoglobin Carboxyhemoglobin Sodium Potassium Chloride Carbon Dioxide BUN Creatinine Glucose POC Glucose 138 H 180 H 178 H Lactic Acid Calcium Phosphorus Magnesium Ferritin Lactate Dehydrogenase C-Reactive Protein NT-Pro-B Natriuret Pep Total Protein Albumin Triglycerides Arterial Blood Glucose Urine pH Ur Specific [place] Coronavirus (PCR) 03/31/21 03/31/21 03/31/21 12:50 13:30 16:06 WBC RBC Hgb 11.3 L Hct 35.1 L MCV MCHC RDW 16.5 H Plt Count Lymph % (Auto) 7.6 L [place] % (Auto) 9.5 H Lymph # (Auto) 0.6 L [place] # (Auto) Seg Neutrophils % 78.3 H Seg Neuts % (Manual) Lymphocytes % (Manual) Monocytes % (Manual) Nucleated RBC % Seg Neutrophils # Seg Neutrophils # Man Lymphocytes # (Manual) Monocytes # (Manual) PT INR APTT D-Dimer Heparin Anti-Xa Level ABG pH POC ABG pCO2 POC ABG pO2 ABG pO2 99.4 H ABG HCO3 34.9 H ABG O2 Saturation ABG Base Excess 8.4 H ABG Hemoglobin 11.8 L ABG Oxyhemoglobin ABG Sodium ABG Potassium ABG Glucose Oxyhemoglobin Carboxyhemoglobin Sodium Potassium Chloride Carbon Dioxide BUN Creatinine Glucose POC Glucose 197 H Lactic Acid Calcium Phosphorus Magnesium Ferritin Lactate Dehydrogenase C-Reactive Protein NT-Pro-B Natriuret Pep Total Protein Albumin Triglycerides Arterial Blood Glucose Urine pH Ur Specific [place] Coronavirus (PCR) 03/31/21 04/01/21 04/01/21 20:51 05:37 07:16 WBC RBC 3.39 L Hgb 10.5 L Hct 31.6 L MCV MCHC RDW 16.1 H Plt Count Lymph % (Auto) [place] % (Auto) Lymph # (Auto) [place] # (Auto) Seg Neutrophils % Seg Neuts % (Manual) Lymphocytes % (Manual) Monocytes % (Manual) Nucleated RBC % Seg Neutrophils # Seg Neutrophils # Man Lymphocytes # (Manual) Monocytes # (Manual) PT INR APTT D-Dimer Heparin Anti-Xa Level ABG pH POC ABG pCO2 POC ABG pO2 ABG pO2 ABG HCO3 ABG O2 Saturation ABG Base Excess ABG Hemoglobin ABG Oxyhemoglobin ABG Sodium ABG Potassium ABG Glucose Oxyhemoglobin Carboxyhemoglobin Sodium Potassium Chloride Carbon Dioxide BUN Creatinine Glucose POC Glucose 140 H 128 H Lactic Acid Calcium Phosphorus Magnesium Ferritin Lactate Dehydrogenase C-Reactive Protein NT-Pro-B Natriuret Pep Total Protein Albumin Triglycerides Arterial Blood Glucose Urine pH Ur Specific [place] Coronavirus (PCR) 04/01/21 04/01/21 04/01/21 07:16 11:52 16:56 WBC RBC Hgb Hct MCV MCHC RDW Plt Count Lymph % (Auto) [place] % (Auto) Lymph # (Auto) [place] # (Auto) Seg Neutrophils % Seg Neuts % (Manual) Lymphocytes % (Manual) Monocytes % (Manual) Nucleated RBC % Seg Neutrophils # Seg Neutrophils # Man Lymphocytes # (Manual) Monocytes # (Manual) PT INR APTT D-Dimer Heparin Anti-Xa Level ABG pH POC ABG pCO2 POC ABG pO2 ABG pO2 ABG HCO3 ABG O2 Saturation ABG Base Excess ABG Hemoglobin ABG Oxyhemoglobin ABG Sodium ABG Potassium ABG Glucose Oxyhemoglobin Carboxyhemoglobin Sodium Potassium Chloride Carbon Dioxide BUN Creatinine 0.6 L Glucose 131 H POC Glucose 182 H 179 H Lactic Acid Calcium 8.3 L Phosphorus Magnesium Ferritin Lactate Dehydrogenase C-Reactive Protein NT-Pro-B Natriuret Pep Total Protein Albumin Triglycerides Arterial Blood Glucose Urine pH Ur Specific [place] Coronavirus (PCR) 04/01/21 04/01/21 04/02/21 21:30 23:40 04:26 WBC RBC 3.62 L Hgb 10.8 L Hct 33.9 L MCV MCHC RDW 16.0 H Plt Count Lymph % (Auto) [place] % (Auto) Lymph # (Auto) [place] # (Auto) Seg Neutrophils % Seg Neuts % (Manual) Lymphocytes % (Manual) Monocytes % (Manual) Nucleated RBC % Seg Neutrophils # Seg Neutrophils # Man Lymphocytes # (Manual) Monocytes # (Manual) PT INR APTT D-Dimer Heparin Anti-Xa Level ABG pH POC ABG pCO2 POC ABG pO2 ABG pO2 ABG HCO3 ABG O2 Saturation ABG Base Excess ABG Hemoglobin ABG Oxyhemoglobin ABG Sodium ABG Potassium ABG Glucose Oxyhemoglobin Carboxyhemoglobin Sodium Potassium Chloride Carbon Dioxide BUN Creatinine Glucose POC Glucose 131 H 129 H Lactic Acid Calcium Phosphorus Magnesium Ferritin Lactate Dehydrogenase C-Reactive Protein NT-Pro-B Natriuret Pep Total Protein Albumin Triglycerides Arterial Blood Glucose Urine pH Ur Specific [place] Coronavirus (PCR) 04/02/21 04/02/21 04/02/21 04:26 05:54 11:35 WBC RBC Hgb Hct MCV MCHC RDW Plt Count Lymph % (Auto) [place] % (Auto) Lymph # (Auto) [place] # (Auto) Seg Neutrophils % Seg Neuts % (Manual) Lymphocytes % (Manual) Monocytes % (Manual) Nucleated RBC % Seg Neutrophils # Seg Neutrophils # Man Lymphocytes # (Manual) Monocytes # (Manual) PT INR APTT D-Dimer Heparin Anti-Xa Level ABG pH POC ABG pCO2 POC ABG pO2 ABG pO2 ABG HCO3 ABG O2 Saturation ABG Base Excess ABG Hemoglobin ABG Oxyhemoglobin ABG Sodium ABG Potassium ABG Glucose Oxyhemoglobin Carboxyhemoglobin Sodium 136 L Potassium Chloride Carbon Dioxide BUN Creatinine 0.6 L Glucose 152 H POC Glucose 151 H 178 H Lactic Acid Calcium Phosphorus Magnesium Ferritin Lactate Dehydrogenase C-Reactive Protein NT-Pro-B Natriuret Pep Total Protein Albumin Triglycerides Arterial Blood Glucose Urine pH Ur Specific [place] Coronavirus (PCR) 04/02/21 04/02/21 04/02/21 16:11 21:09 23:38 WBC RBC Hgb Hct MCV MCHC RDW Plt Count Lymph % (Auto) [place] % (Auto) Lymph # (Auto) [place] # (Auto) Seg Neutrophils % Seg Neuts % (Manual) Lymphocytes % (Manual) Monocytes % (Manual) Nucleated RBC % Seg Neutrophils # Seg Neutrophils # Man Lymphocytes # (Manual) Monocytes # (Manual) PT INR APTT D-Dimer Heparin Anti-Xa Level ABG pH POC ABG pCO2 POC ABG pO2 ABG pO2 ABG HCO3 ABG O2 Saturation ABG Base Excess ABG Hemoglobin ABG Oxyhemoglobin ABG Sodium ABG Potassium ABG Glucose Oxyhemoglobin Carboxyhemoglobin Sodium Potassium Chloride Carbon Dioxide BUN Creatinine Glucose POC Glucose 186 H 145 H 152 H Lactic Acid Calcium Phosphorus Magnesium Ferritin Lactate Dehydrogenase C-Reactive Protein NT-Pro-B Natriuret Pep Total Protein Albumin Triglycerides Arterial Blood Glucose Urine pH Ur Specific [place] Coronavirus (PCR) 04/03/21 04/03/21 04/03/21 04:14 04:14 05:27 WBC RBC 3.62 L Hgb 11.0 L Hct 34.0 L MCV MCHC RDW 16.3 H Plt Count Lymph % (Auto) [place] % (Auto) Lymph # (Auto) [place] # (Auto) Seg Neutrophils % Seg Neuts % (Manual) Lymphocytes % (Manual) Monocytes % (Manual) Nucleated RBC % Seg Neutrophils # Seg Neutrophils # Man Lymphocytes # (Manual) Monocytes # (Manual) PT INR APTT D-Dimer Heparin Anti-Xa Level ABG pH POC ABG pCO2 POC ABG pO2 ABG pO2 ABG HCO3 ABG O2 Saturation ABG Base Excess ABG Hemoglobin ABG Oxyhemoglobin ABG Sodium ABG Potassium ABG Glucose Oxyhemoglobin Carboxyhemoglobin Sodium Potassium Chloride Carbon Dioxide 31 H BUN Creatinine 0.6 L Glucose 155 H POC Glucose 165 H Lactic Acid Calcium Phosphorus Magnesium Ferritin Lactate Dehydrogenase C-Reactive Protein NT-Pro-B Natriuret Pep Total Protein Albumin Triglycerides Arterial Blood Glucose Urine pH Ur Specific [place] Coronavirus (PCR) 04/03/21 04/03/21 04/03/21 11:02 16:19 19:45 WBC RBC Hgb Hct MCV MCHC RDW Plt Count Lymph % (Auto) [place] % (Auto) Lymph # (Auto) [place] # (Auto) Seg Neutrophils % Seg Neuts % (Manual) Lymphocytes % (Manual) Monocytes % (Manual) Nucleated RBC % Seg Neutrophils # Seg Neutrophils # Man Lymphocytes # (Manual) Monocytes # (Manual) PT INR APTT D-Dimer Heparin Anti-Xa Level ABG pH POC ABG pCO2 POC ABG pO2 ABG pO2 ABG HCO3 ABG O2 Saturation ABG Base Excess ABG Hemoglobin ABG Oxyhemoglobin ABG Sodium ABG Potassium ABG Glucose Oxyhemoglobin Carboxyhemoglobin Sodium Potassium Chloride Carbon Dioxide BUN Creatinine Glucose POC Glucose 161 H 180 H 136 H Lactic Acid Calcium Phosphorus Magnesium Ferritin Lactate Dehydrogenase C-Reactive Protein NT-Pro-B Natriuret Pep Total Protein Albumin Triglycerides Arterial Blood Glucose Urine pH Ur Specific [place] Coronavirus (PCR) 04/04/21 04/04/21 04/04/21 00:21 04:33 04:33 WBC 13.1 H RBC 3.49 L Hgb 10.3 L Hct 32.7 L MCV MCHC RDW 16.1 H Plt Count Lymph % (Auto) [place] % (Auto) Lymph # (Auto) [place] # (Auto) Seg Neutrophils % Seg Neuts % (Manual) Lymphocytes % (Manual) Monocytes % (Manual) Nucleated RBC % Seg Neutrophils # Seg Neutrophils # Man Lymphocytes # (Manual) Monocytes # (Manual) PT INR APTT D-Dimer Heparin Anti-Xa Level ABG pH POC ABG pCO2 POC ABG pO2 ABG pO2 ABG HCO3 ABG O2 Saturation ABG Base Excess ABG Hemoglobin ABG Oxyhemoglobin ABG Sodium ABG Potassium ABG Glucose Oxyhemoglobin Carboxyhemoglobin Sodium Potassium Chloride Carbon Dioxide 31 H BUN Creatinine 0.4 L Glucose 153 H POC Glucose 140 H Lactic Acid Calcium Phosphorus Magnesium Ferritin Lactate Dehydrogenase C-Reactive Protein NT-Pro-B Natriuret Pep Total Protein Albumin Triglycerides Arterial Blood Glucose Urine pH Ur Specific [place] Coronavirus (PCR) 04/04/21 04/04/21 04/04/21 05:16 11:39 17:22 WBC RBC Hgb Hct MCV MCHC RDW Plt Count Lymph % (Auto) [place] % (Auto) Lymph # (Auto) [place] # (Auto) Seg Neutrophils % Seg Neuts % (Manual) Lymphocytes % (Manual) Monocytes % (Manual) Nucleated RBC % Seg Neutrophils # Seg Neutrophils # Man Lymphocytes # (Manual) Monocytes # (Manual) PT INR APTT D-Dimer Heparin Anti-Xa Level ABG pH POC ABG pCO2 POC ABG pO2 ABG pO2 ABG HCO3 ABG O2 Saturation ABG Base Excess ABG Hemoglobin ABG Oxyhemoglobin ABG Sodium ABG Potassium ABG Glucose Oxyhemoglobin Carboxyhemoglobin Sodium Potassium Chloride Carbon Dioxide BUN Creatinine Glucose POC Glucose 152 H 154 H 198 H Lactic Acid Calcium Phosphorus Magnesium Ferritin Lactate Dehydrogenase C-Reactive Protein NT-Pro-B Natriuret Pep Total Protein Albumin Triglycerides Arterial Blood Glucose Urine pH Ur Specific [place] Coronavirus (PCR) 04/04/21 04/04/21 04/05/21 20:14 23:16 04:15 WBC RBC 3.21 L Hgb 10.0 L Hct 30.3 L MCV MCHC RDW 16.4 H Plt Count Lymph % (Auto) [place] % (Auto) Lymph # (Auto) [place] # (Auto) Seg Neutrophils % Seg Neuts % (Manual) Lymphocytes % (Manual) Monocytes % (Manual) Nucleated RBC % Seg Neutrophils # Seg Neutrophils # Man Lymphocytes # (Manual) Monocytes # (Manual) PT INR APTT D-Dimer Heparin Anti-Xa Level ABG pH POC ABG pCO2 POC ABG pO2 ABG pO2 ABG HCO3 ABG O2 Saturation ABG Base Excess ABG Hemoglobin ABG Oxyhemoglobin ABG Sodium ABG Potassium ABG Glucose Oxyhemoglobin Carboxyhemoglobin Sodium Potassium Chloride Carbon Dioxide BUN Creatinine Glucose POC Glucose 161 H 139 H Lactic Acid Calcium Phosphorus Magnesium Ferritin Lactate Dehydrogenase C-Reactive Protein NT-Pro-B Natriuret Pep Total Protein Albumin Triglycerides Arterial Blood Glucose Urine pH Ur Specific [place] Coronavirus (PCR) 04/05/21 04/05/21 04/05/21 04:15 05:34 12:09 WBC RBC Hgb Hct MCV MCHC RDW Plt Count Lymph % (Auto) [place] % (Auto) Lymph # (Auto) [place] # (Auto) Seg Neutrophils % Seg Neuts % (Manual) Lymphocytes % (Manual) Monocytes % (Manual) Nucleated RBC % Seg Neutrophils # Seg Neutrophils # Man Lymphocytes # (Manual) Monocytes # (Manual) PT INR APTT D-Dimer Heparin Anti-Xa Level ABG pH POC ABG pCO2 POC ABG pO2 ABG pO2 ABG HCO3 ABG O2 Saturation ABG Base Excess ABG Hemoglobin ABG Oxyhemoglobin ABG Sodium ABG Potassium ABG Glucose Oxyhemoglobin Carboxyhemoglobin Sodium Potassium Chloride 97.6 L Carbon Dioxide 32 H BUN Creatinine 0.5 L Glucose 147 H POC Glucose 145 H 173 H Lactic Acid Calcium Phosphorus Magnesium Ferritin Lactate Dehydrogenase C-Reactive Protein NT-Pro-B Natriuret Pep Total Protein Albumin Triglycerides Arterial Blood Glucose Urine pH Ur Specific [place] Coronavirus (PCR) 04/05/21 04/05/21 04/05/21 17:35 21:07 23:15 WBC RBC Hgb Hct MCV MCHC RDW Plt Count Lymph % (Auto) [place] % (Auto) Lymph # (Auto) [place] # (Auto) Seg Neutrophils % Seg Neuts % (Manual) Lymphocytes % (Manual) Monocytes % (Manual) Nucleated RBC % Seg Neutrophils # Seg Neutrophils # Man Lymphocytes # (Manual) Monocytes # (Manual) PT INR APTT D-Dimer Heparin Anti-Xa Level ABG pH POC ABG pCO2 POC ABG pO2 ABG pO2 ABG HCO3 ABG O2 Saturation ABG Base Excess ABG Hemoglobin ABG Oxyhemoglobin ABG Sodium ABG Potassium ABG Glucose Oxyhemoglobin Carboxyhemoglobin Sodium Potassium Chloride Carbon Dioxide BUN Creatinine Glucose POC Glucose 143 H 157 H 171 H Lactic Acid Calcium Phosphorus Magnesium Ferritin Lactate Dehydrogenase C-Reactive Protein NT-Pro-B Natriuret Pep Total Protein Albumin Triglycerides Arterial Blood Glucose Urine pH Ur Specific [place] Coronavirus (PCR) 04/06/21 04/06/2104/06/22 04:49 05:14 11:42 WBC RBC Hgb Hct MCV MCHC RDW Plt Count Lymph % (Auto) [place] % (Auto) Lymph # (Auto) [place] # (Auto) Seg Neutrophils % Seg Neuts % (Manual) Lymphocytes % (Manual) Monocytes % (Manual) Nucleated RBC % Seg Neutrophils # Seg Neutrophils # Man Lymphocytes # (Manual) Monocytes # (Manual) PT INR APTT D-Dimer Heparin Anti-Xa Level ABG pH POC ABG pCO2 57.4 H POC ABG pO2 55.1 L ABG pO2 ABG HCO3 ABG O2 Saturation ABG Base Excess ABG Hemoglobin 11.5 L ABG Oxyhemoglobin 87.5 L ABG Sodium ABG Potassium ABG Glucose Oxyhemoglobin Carboxyhemoglobin Sodium Potassium Chloride Carbon Dioxide BUN Creatinine Glucose POC Glucose 145 H 171 H Lactic Acid Calcium Phosphorus Magnesium Ferritin Lactate Dehydrogenase C-Reactive Protein NT-Pro-B Natriuret Pep Total Protein Albumin Triglycerides Arterial Blood Glucose Urine pH Ur Specific [place] Coronavirus (PCR) 04/06/21 04/06/21 04/06/21 11:50 15:36 15:36 WBC RBC Hgb 10.4 L Hct 32.5 L MCV MCHC RDW Plt Count 444 H Lymph % (Auto) [place] % (Auto) Lymph # (Auto) [place] # (Auto) Seg Neutrophils % Seg Neuts % (Manual) Lymphocytes % (Manual) Monocytes % (Manual) Nucleated RBC % Seg Neutrophils # Seg Neutrophils # Man Lymphocytes # (Manual) Monocytes # (Manual) PT INR APTT 37.1 H D-Dimer Heparin Anti-Xa Level ABG pH 7.341 L POC ABG pCO2 POC ABG pO2 ABG pO2 108.9 H ABG HCO3 38.9 H ABG O2 Saturation ABG Base Excess 10.6 H ABG Hemoglobin 11.5 L ABG Oxyhemoglobin ABG Sodium ABG Potassium ABG Glucose Oxyhemoglobin Carboxyhemoglobin Sodium Potassium Chloride Carbon Dioxide BUN Creatinine Glucose POC Glucose Lactic Acid Calcium Phosphorus Magnesium Ferritin Lactate Dehydrogenase C-Reactive Protein NT-Pro-B Natriuret Pep Total Protein Albumin Triglycerides Arterial Blood Glucose Urine pH Ur Specific [place] Coronavirus (PCR) 04/06/21 04/07/21 04/07/21 17:57 00:30 00:32 WBC RBC Hgb Hct MCV MCHC RDW Plt Count Lymph % (Auto) [place] % (Auto) Lymph # (Auto) [place] # (Auto) Seg Neutrophils % Seg Neuts % (Manual) Lymphocytes % (Manual) Monocytes % (Manual) Nucleated RBC % Seg Neutrophils # Seg Neutrophils # Man Lymphocytes # (Manual) Monocytes # (Manual) PT INR APTT D-Dimer Heparin Anti-Xa Level < 0.10 L ABG pH POC ABG pCO2 POC ABG pO2 ABG pO2 ABG HCO3 ABG O2 Saturation ABG Base Excess ABG Hemoglobin ABG Oxyhemoglobin ABG Sodium ABG Potassium ABG Glucose Oxyhemoglobin Carboxyhemoglobin Sodium Potassium Chloride Carbon Dioxide BUN Creatinine Glucose POC Glucose 151 H 149 H Lactic Acid Calcium Phosphorus Magnesium Ferritin Lactate Dehydrogenase C-Reactive Protein NT-Pro-B Natriuret Pep Total Protein Albumin Triglycerides Arterial Blood Glucose Urine pH Ur Specific [place] Coronavirus (PCR) 04/07/21 04/07/21 04/07/21 05:34 06:08 06:08 WBC RBC 3.20 L Hgb 9.6 L Hct 29.8 L MCV MCHC RDW 16.0 H Plt Count 455 H Lymph % (Auto) [place] % (Auto) Lymph # (Auto) [place] # (Auto) Seg Neutrophils % Seg Neuts % (Manual) Lymphocytes % (Manual) Monocytes % (Manual) Nucleated RBC % Seg Neutrophils # Seg Neutrophils # Man Lymphocytes # (Manual) Monocytes # (Manual) PT INR APTT D-Dimer Heparin Anti-Xa Level ABG pH POC ABG pCO2 POC ABG pO2 ABG pO2 ABG HCO3 ABG O2 Saturation ABG Base Excess ABG Hemoglobin ABG Oxyhemoglobin ABG Sodium ABG Potassium ABG Glucose Oxyhemoglobin Carboxyhemoglobin Sodium Potassium Chloride Carbon Dioxide 35 H BUN Creatinine 0.5 L Glucose 216 H POC Glucose 182 H Lactic Acid Calcium Phosphorus Magnesium Ferritin Lactate Dehydrogenase C-Reactive Protein NT-Pro-B Natriuret Pep Total Protein Albumin Triglycerides Arterial Blood Glucose Urine pH Ur Specific [place] Coronavirus (PCR) 04/07/21 04/07/21 04/07/21 07:55 11:57 17:12 WBC RBC Hgb Hct MCV MCHC RDW Plt Count Lymph % (Auto) [place] % (Auto) Lymph # (Auto) [place] # (Auto) Seg Neutrophils % Seg Neuts % (Manual) Lymphocytes % (Manual) Monocytes % (Manual) Nucleated RBC % Seg Neutrophils # Seg Neutrophils # Man Lymphocytes # (Manual) Monocytes # (Manual) PT INR APTT D-Dimer Heparin Anti-Xa Level < 0.10 L ABG pH POC ABG pCO2 POC ABG pO2 ABG pO2 ABG HCO3 ABG O2 Saturation ABG Base Excess ABG Hemoglobin ABG Oxyhemoglobin ABG Sodium ABG Potassium ABG Glucose Oxyhemoglobin Carboxyhemoglobin Sodium Potassium Chloride Carbon Dioxide BUN Creatinine Glucose POC Glucose 182 H 165 H Lactic Acid Calcium Phosphorus Magnesium Ferritin Lactate Dehydrogenase C-Reactive Protein NT-Pro-B Natriuret Pep Total Protein Albumin Triglycerides Arterial Blood Glucose Urine pH Ur Specific [place] Coronavirus (PCR) 04/07/21 04/08/21 04/08/21 19:55 00:16 03:57 WBC RBC Hgb Hct MCV MCHC RDW Plt Count Lymph % (Auto) [place] % (Auto) Lymph # (Auto) [place] # (Auto) Seg Neutrophils % Seg Neuts % (Manual) Lymphocytes % (Manual) Monocytes % (Manual) Nucleated RBC % Seg Neutrophils # Seg Neutrophils # Man Lymphocytes # (Manual) Monocytes # (Manual) PT INR APTT D-Dimer Heparin Anti-Xa Level < 0.10 L ABG pH POC ABG pCO2 POC ABG pO2 ABG pO2 ABG HCO3 ABG O2 Saturation ABG Base Excess ABG Hemoglobin ABG Oxyhemoglobin ABG Sodium ABG Potassium ABG Glucose Oxyhemoglobin Carboxyhemoglobin Sodium Potassium 5.8 H Chloride 95.5 L Carbon Dioxide 37 H BUN Creatinine 0.5 L Glucose 161 H POC Glucose 175 H Lactic Acid Calcium Phosphorus Magnesium Ferritin Lactate Dehydrogenase C-Reactive Protein NT-Pro-B Natriuret Pep Total Protein Albumin Triglycerides Arterial Blood Glucose Urine pH Ur Specific [place] Coronavirus (PCR) 04/08/21 04/08/21 04/08/21 04:00 05:43 09:26 WBC RBC 3.25 L Hgb 9.9 L Hct 30.8 L MCV 95 H MCHC RDW 16.0 H Plt Count 487 H Lymph % (Auto) [place] % (Auto) Lymph # (Auto) [place] # (Auto) Seg Neutrophils % Seg Neuts % (Manual) Lymphocytes % (Manual) Monocytes % (Manual) Nucleated RBC % Seg Neutrophils # Seg Neutrophils # Man Lymphocytes # (Manual) Monocytes # (Manual) PT INR APTT D-Dimer Heparin Anti-Xa Level ABG pH POC ABG pCO2 POC ABG pO2 ABG pO2 ABG HCO3 ABG O2 Saturation ABG Base Excess ABG Hemoglobin ABG Oxyhemoglobin ABG Sodium ABG Potassium ABG Glucose Oxyhemoglobin Carboxyhemoglobin Sodium Potassium Chloride Carbon Dioxide BUN Creatinine Glucose POC Glucose 162 H 164 H Lactic Acid Calcium Phosphorus Magnesium Ferritin Lactate Dehydrogenase C-Reactive Protein NT-Pro-B Natriuret Pep Total Protein Albumin Triglycerides Arterial Blood Glucose Urine pH Ur Specific [place] Coronavirus (PCR) 04/08/21 04/08/21 04/08/21 11:53 17:19 20:35 WBC RBC Hgb Hct MCV MCHC RDW Plt Count Lymph % (Auto) [place] % (Auto) Lymph # (Auto) [place] # (Auto) Seg Neutrophils % Seg Neuts % (Manual) Lymphocytes % (Manual) Monocytes % (Manual) Nucleated RBC % Seg Neutrophils # Seg Neutrophils # Man Lymphocytes # (Manual) Monocytes # (Manual) PT INR APTT D-Dimer Heparin Anti-Xa Level ABG pH POC ABG pCO2 POC ABG pO2 ABG pO2 ABG HCO3 ABG O2 Saturation ABG Base Excess ABG Hemoglobin ABG Oxyhemoglobin ABG Sodium ABG Potassium ABG Glucose Oxyhemoglobin Carboxyhemoglobin Sodium Potassium Chloride Carbon Dioxide BUN Creatinine Glucose POC Glucose 170 H 157 H 190 H Lactic Acid Calcium Phosphorus Magnesium Ferritin Lactate Dehydrogenase C-Reactive Protein NT-Pro-B Natriuret Pep Total Protein Albumin Triglycerides Arterial Blood Glucose Urine pH Ur Specific [place] Coronavirus (PCR) 04/08/21 04/09/21 04/09/21 23:52 04:21 04:21 WBC 11.4 H RBC 2.97 L Hgb 8.9 L Hct 27.8 L MCV MCHC RDW 15.8 H Plt Count 485 H Lymph % (Auto) [place] % (Auto) Lymph # (Auto) [place] # (Auto) Seg Neutrophils % Seg Neuts % (Manual) Lymphocytes % (Manual) Monocytes % (Manual) Nucleated RBC % Seg Neutrophils # Seg Neutrophils # Man Lymphocytes # (Manual) Monocytes # (Manual) PT INR APTT D-Dimer Heparin Anti-Xa Level ABG pH POC ABG pCO2 POC ABG pO2 ABG pO2 ABG HCO3 ABG O2 Saturation ABG Base Excess ABG Hemoglobin ABG Oxyhemoglobin ABG Sodium ABG Potassium ABG Glucose Oxyhemoglobin Carboxyhemoglobin Sodium Potassium Chloride 97.1 L Carbon Dioxide 40 H BUN 21 H Creatinine 0.5 L Glucose 149 H POC Glucose 170 H Lactic Acid Calcium Phosphorus 1.90 L D Magnesium Ferritin Lactate Dehydrogenase C-Reactive Protein NT-Pro-B Natriuret Pep Total Protein Albumin Triglycerides Arterial Blood Glucose Urine pH Ur Specific [place] Coronavirus (PCR) 04/09/21 04/09/21 04/09/21 05:27 11:55 17:11 WBC RBC Hgb Hct MCV MCHC RDW Plt Count Lymph % (Auto) [place] % (Auto) Lymph # (Auto) [place] # (Auto) Seg Neutrophils % Seg Neuts % (Manual) Lymphocytes % (Manual) Monocytes % (Manual) Nucleated RBC % Seg Neutrophils # Seg Neutrophils # Man Lymphocytes # (Manual) Monocytes # (Manual) PT INR APTT D-Dimer Heparin Anti-Xa Level ABG pH POC ABG pCO2 POC ABG pO2 ABG pO2 ABG HCO3 ABG O2 Saturation ABG Base Excess ABG Hemoglobin ABG Oxyhemoglobin ABG Sodium ABG Potassium ABG Glucose Oxyhemoglobin Carboxyhemoglobin Sodium Potassium Chloride Carbon Dioxide BUN Creatinine Glucose POC Glucose 144 H 190 H 163 H Lactic Acid Calcium Phosphorus Magnesium Ferritin Lactate Dehydrogenase C-Reactive Protein NT-Pro-B Natriuret Pep Total Protein Albumin Triglycerides Arterial Blood Glucose Urine pH Ur Specific [place] Coronavirus (PCR) 04/09/21 04/09/21 04/09/21 20:10 21:12 23:33 WBC RBC Hgb Hct MCV MCHC RDW Plt Count Lymph % (Auto) [place] % (Auto) Lymph # (Auto) [place] # (Auto) Seg Neutrophils % Seg Neuts % (Manual) Lymphocytes % (Manual) Monocytes % (Manual) Nucleated RBC % Seg Neutrophils # Seg Neutrophils # Man Lymphocytes # (Manual) Monocytes # (Manual) PT INR APTT D-Dimer Heparin Anti-Xa Level ABG pH POC ABG pCO2 POC ABG pO2 ABG pO2 68.1 L ABG HCO3 41.3 H ABG O2 Saturation ABG Base Excess 14.6 H ABG Hemoglobin 10.2 L ABG Oxyhemoglobin ABG Sodium ABG Potassium ABG Glucose Oxyhemoglobin 94.7 L Carboxyhemoglobin Sodium Potassium Chloride Carbon Dioxide BUN Creatinine Glucose POC Glucose 163 H 164 H Lactic Acid Calcium Phosphorus Magnesium Ferritin Lactate Dehydrogenase C-Reactive Protein NT-Pro-B Natriuret Pep Total Protein Albumin Triglycerides Arterial Blood Glucose Urine pH Ur Specific [place] Coronavirus (PCR) 04/10/21 04/10/21 04/10/21 05:26 11:41 13:00 WBC RBC 3.09 L Hgb 9.3 L Hct 28.3 L MCV MCHC RDW 15.8 H Plt Count 480 H Lymph % (Auto) [place] % (Auto) Lymph # (Auto) [place] # (Auto) Seg Neutrophils % Seg Neuts % (Manual) Lymphocytes % (Manual) Monocytes % (Manual) Nucleated RBC % Seg Neutrophils # Seg Neutrophils # Man Lymphocytes # (Manual) Monocytes # (Manual) PT INR APTT D-Dimer Heparin Anti-Xa Level ABG pH POC ABG pCO2 POC ABG pO2 ABG pO2 ABG HCO3 ABG O2 Saturation ABG Base Excess ABG Hemoglobin ABG Oxyhemoglobin ABG Sodium ABG Potassium ABG Glucose Oxyhemoglobin Carboxyhemoglobin Sodium Potassium Chloride Carbon Dioxide BUN Creatinine Glucose POC Glucose 172 H 150 H Lactic Acid Calcium Phosphorus Magnesium Ferritin Lactate Dehydrogenase C-Reactive Protein NT-Pro-B Natriuret Pep Total Protein Albumin Triglycerides Arterial Blood Glucose Urine pH Ur Specific [place] Coronavirus (PCR) 04/10/21 04/10/21 04/10/21 13:00 17:46 21:37 WBC RBC Hgb Hct MCV MCHC RDW Plt Count Lymph % (Auto) [place] % (Auto) Lymph # (Auto) [place] # (Auto) Seg Neutrophils % Seg Neuts % (Manual) Lymphocytes % (Manual) Monocytes % (Manual) Nucleated RBC % Seg Neutrophils # Seg Neutrophils # Man Lymphocytes # (Manual) Monocytes # (Manual) PT INR APTT D-Dimer Heparin Anti-Xa Level ABG pH POC ABG pCO2 POC ABG pO2 ABG pO2 ABG HCO3 ABG O2 Saturation ABG Base Excess ABG Hemoglobin ABG Oxyhemoglobin ABG Sodium ABG Potassium ABG Glucose Oxyhemoglobin Carboxyhemoglobin Sodium Potassium Chloride 96.4 L Carbon Dioxide 34 H BUN Creatinine 0.5 L Glucose 165 H POC Glucose 165 H 166 H Lactic Acid Calcium Phosphorus Magnesium Ferritin Lactate Dehydrogenase C-Reactive Protein NT-Pro-B Natriuret Pep Total Protein Albumin Triglycerides Arterial Blood Glucose Urine pH Ur Specific [place] Coronavirus (PCR) 04/10/21 04/11/21 04/11/21 23:56 04:30 05:39 WBC 11.5 H RBC 3.02 L Hgb 8.9 L Hct 27.8 L MCV MCHC RDW 16.0 H Plt Count 505 H Lymph % (Auto) [place] % (Auto) Lymph # (Auto) [place] # (Auto) Seg Neutrophils % Seg Neuts % (Manual) Lymphocytes % (Manual) Monocytes % (Manual) Nucleated RBC % Seg Neutrophils # Seg Neutrophils # Man Lymphocytes # (Manual) Monocytes # (Manual) PT INR APTT D-Dimer Heparin Anti-Xa Level ABG pH POC ABG pCO2 POC ABG pO2 ABG pO2 ABG HCO3 ABG O2 Saturation ABG Base Excess ABG Hemoglobin ABG Oxyhemoglobin ABG Sodium ABG Potassium ABG Glucose Oxyhemoglobin Carboxyhemoglobin Sodium Potassium Chloride Carbon Dioxide BUN Creatinine Glucose POC Glucose 156 H 164 H Lactic Acid Calcium Phosphorus Magnesium Ferritin Lactate Dehydrogenase C-Reactive Protein NT-Pro-B Natriuret Pep Total Protein Albumin Triglycerides Arterial Blood Glucose Urine pH Ur Specific [place] Coronavirus (PCR) 04/11/21 04/11/21 04/11/21 06:47 06:47 11:29 WBC RBC 3.35 L Hgb 9.8 L Hct 30.7 L MCV MCHC RDW 16.3 H Plt Count 520 H Lymph % (Auto) [place] % (Auto) Lymph # (Auto) [place] # (Auto) Seg Neutrophils % Seg Neuts % (Manual) 76.0 H Lymphocytes % (Manual) 10.0 L Monocytes % (Manual) Nucleated RBC % Seg Neutrophils # Seg Neutrophils # Man 8.3 H Lymphocytes # (Manual) 1.1 L Monocytes # (Manual) PT INR APTT D-Dimer Heparin Anti-Xa Level ABG pH POC ABG pCO2 POC ABG pO2 ABG pO2 ABG HCO3 ABG O2 Saturation ABG Base Excess ABG Hemoglobin ABG Oxyhemoglobin ABG Sodium ABG Potassium ABG Glucose Oxyhemoglobin Carboxyhemoglobin Sodium Potassium Chloride 97.7 L Carbon Dioxide 34 H BUN Creatinine 0.4 L Glucose 178 H POC Glucose 170 H Lactic Acid Calcium Phosphorus Magnesium Ferritin Lactate Dehydrogenase C-Reactive Protein NT-Pro-B Natriuret Pep Total Protein Albumin Triglycerides Arterial Blood Glucose Urine pH Ur Specific [place] Coronavirus (PCR) 04/11/21 04/11/21 04/11/21 18:17 18:17 18:17 WBC RBC 3.22 L Hgb 9.5 L Hct 29.8 L MCV MCHC RDW 16.0 H Plt Count Lymph % (Auto) [place] % (Auto) Lymph # (Auto) [place] # (Auto) Seg Neutrophils % Seg Neuts % (Manual) Lymphocytes % (Manual) Monocytes % (Manual) Nucleated RBC % Seg Neutrophils # Seg Neutrophils # Man Lymphocytes # (Manual) Monocytes # (Manual) PT INR APTT 61.1 H* D-Dimer Heparin Anti-Xa Level ABG pH POC ABG pCO2 POC ABG pO2 ABG pO2 ABG HCO3 ABG O2 Saturation ABG Base Excess ABG Hemoglobin ABG Oxyhemoglobin ABG Sodium ABG Potassium ABG Glucose Oxyhemoglobin Carboxyhemoglobin Sodium Potassium Chloride Carbon Dioxide BUN Creatinine 0.3 L Glucose POC Glucose Lactic Acid Calcium Phosphorus Magnesium Ferritin Lactate Dehydrogenase C-Reactive Protein NT-Pro-B Natriuret Pep Total Protein Albumin Triglycerides Arterial Blood Glucose Urine pH Ur Specific [place] Coronavirus (PCR) 04/11/21 04/12/21 04/12/21 18:25 00:19 05:11 WBC RBC 2.92 L Hgb 8.6 L Hct 26.9 L MCV MCHC RDW 16.3 H Plt Count 460 H Lymph % (Auto) [place] % (Auto) Lymph # (Auto) [place] # (Auto) Seg Neutrophils % Seg Neuts % (Manual) Lymphocytes % (Manual) Monocytes % (Manual) Nucleated RBC % Seg Neutrophils # Seg Neutrophils # Man Lymphocytes # (Manual) Monocytes # (Manual) PT INR APTT D-Dimer Heparin Anti-Xa Level ABG pH POC ABG pCO2 POC ABG pO2 ABG pO2 ABG HCO3 ABG O2 Saturation ABG Base Excess ABG Hemoglobin ABG Oxyhemoglobin ABG Sodium ABG Potassium ABG Glucose Oxyhemoglobin Carboxyhemoglobin Sodium Potassium Chloride Carbon Dioxide BUN Creatinine Glucose POC Glucose 167 H 128 H Lactic Acid Calcium Phosphorus Magnesium Ferritin Lactate Dehydrogenase C-Reactive Protein NT-Pro-B Natriuret Pep Total Protein Albumin Triglycerides Arterial Blood Glucose Urine pH Ur Specific [place] Coronavirus (PCR) 04/12/21 04/12/21 04/12/21 05:11 05:11 06:23 WBC RBC Hgb Hct MCV MCHC RDW Plt Count Lymph % (Auto) [place] % (Auto) Lymph # (Auto) [place] # (Auto) Seg Neutrophils % Seg Neuts % (Manual) Lymphocytes % (Manual) Monocytes % (Manual) Nucleated RBC % Seg Neutrophils # Seg Neutrophils # Man Lymphocytes # (Manual) Monocytes # (Manual) PT INR APTT D-Dimer Heparin Anti-Xa Level 1.03 H ABG pH POC ABG pCO2 POC ABG pO2 ABG pO2 ABG HCO3 ABG O2 Saturation ABG Base Excess ABG Hemoglobin ABG Oxyhemoglobin ABG Sodium ABG Potassium ABG Glucose Oxyhemoglobin Carboxyhemoglobin Sodium Potassium Chloride Carbon Dioxide 34 H BUN Creatinine 0.3 L Glucose 153 H POC Glucose 162 H Lactic Acid Calcium Phosphorus Magnesium Ferritin Lactate Dehydrogenase C-Reactive Protein NT-Pro-B Natriuret Pep Total Protein Albumin Triglycerides Arterial Blood Glucose Urine pH Ur Specific [place] Coronavirus (PCR) 04/12/21 04/12/21 04/12/21 09:45 11:08 15:56 WBC RBC Hgb Hct MCV MCHC RDW Plt Count Lymph % (Auto) [place] % (Auto) Lymph # (Auto) [place] # (Auto) Seg Neutrophils % Seg Neuts % (Manual) Lymphocytes % (Manual) Monocytes % (Manual) Nucleated RBC % Seg Neutrophils # Seg Neutrophils # Man Lymphocytes # (Manual) Monocytes # (Manual) PT INR APTT D-Dimer Heparin Anti-Xa Level ABG pH POC ABG pCO2 POC ABG pO2 ABG pO2 70.8 L ABG HCO3 41.0 H ABG O2 Saturation ABG Base Excess 13.7 H ABG Hemoglobin 8.3 L ABG Oxyhemoglobin ABG Sodium ABG Potassium ABG Glucose Oxyhemoglobin 94.0 L Carboxyhemoglobin Sodium Potassium Chloride Carbon Dioxide BUN Creatinine Glucose POC Glucose 174 H 146 H Lactic Acid Calcium Phosphorus Magnesium Ferritin Lactate Dehydrogenase C-Reactive Protein NT-Pro-B Natriuret Pep Total Protein Albumin Triglycerides Arterial Blood Glucose Urine pH Ur Specific [place] Coronavirus (PCR) 04/12/21 04/12/21 04/13/21 21:55 23:25 04:34 WBC 12.5 H RBC 2.97 L Hgb 8.9 L Hct 27.3 L MCV MCHC RDW 16.4 H Plt Count 470 H Lymph % (Auto) [place] % (Auto) Lymph # (Auto) [place] # (Auto) Seg Neutrophils % Seg Neuts % (Manual) Lymphocytes % (Manual) Monocytes % (Manual) Nucleated RBC % Seg Neutrophils # Seg Neutrophils # Man Lymphocytes # (Manual) Monocytes # (Manual) PT INR APTT D-Dimer Heparin Anti-Xa Level ABG pH POC ABG pCO2 POC ABG pO2 ABG pO2 ABG HCO3 ABG O2 Saturation ABG Base Excess ABG Hemoglobin ABG Oxyhemoglobin ABG Sodium ABG Potassium ABG Glucose Oxyhemoglobin Carboxyhemoglobin Sodium Potassium Chloride Carbon Dioxide BUN Creatinine Glucose POC Glucose 142 H 170 H Lactic Acid Calcium Phosphorus Magnesium Ferritin Lactate Dehydrogenase C-Reactive Protein NT-Pro-B Natriuret Pep Total Protein Albumin Triglycerides Arterial Blood Glucose Urine pH Ur Specific [place] Coronavirus (PCR) 04/13/21 04/13/21 04/13/21 04:34 05:17 11:14 WBC RBC Hgb Hct MCV MCHC RDW Plt Count Lymph % (Auto) [place] % (Auto) Lymph # (Auto) [place] # (Auto) Seg Neutrophils % Seg Neuts % (Manual) Lymphocytes % (Manual) Monocytes % (Manual) Nucleated RBC % Seg Neutrophils # Seg Neutrophils # Man Lymphocytes # (Manual) Monocytes # (Manual) PT INR APTT D-Dimer Heparin Anti-Xa Level ABG pH POC ABG pCO2 POC ABG pO2 ABG pO2 ABG HCO3 ABG O2 Saturation ABG Base Excess ABG Hemoglobin ABG Oxyhemoglobin ABG Sodium ABG Potassium ABG Glucose Oxyhemoglobin Carboxyhemoglobin Sodium Potassium Chloride 96.6 L Carbon Dioxide 41 H* D BUN Creatinine 0.3 L Glucose 171 H POC Glucose 141 H 149 H Lactic Acid Calcium Phosphorus Magnesium Ferritin Lactate Dehydrogenase C-Reactive Protein NT-Pro-B Natriuret Pep Total Protein Albumin Triglycerides Arterial Blood Glucose Urine pH Ur Specific [place] Coronavirus (PCR) 04/13/21 04/13/21 04/14/21 15:51 23:35 04:32 WBC 13.8 H RBC 2.64 L Hgb 8.0 L Hct 24.1 L MCV MCHC RDW 16.1 H Plt Count Lymph % (Auto) [place] % (Auto) Lymph # (Auto) [place] # (Auto) Seg Neutrophils % Seg Neuts % (Manual) Lymphocytes % (Manual) Monocytes % (Manual) Nucleated RBC % Seg Neutrophils # Seg Neutrophils # Man Lymphocytes # (Manual) Monocytes # (Manual) PT INR APTT D-Dimer Heparin Anti-Xa Level ABG pH POC ABG pCO2 POC ABG pO2 ABG pO2 ABG HCO3 ABG O2 Saturation ABG Base Excess ABG Hemoglobin ABG Oxyhemoglobin ABG Sodium ABG Potassium ABG Glucose Oxyhemoglobin Carboxyhemoglobin Sodium Potassium Chloride Carbon Dioxide BUN Creatinine Glucose POC Glucose 136 H 167 H Lactic Acid Calcium Phosphorus Magnesium Ferritin Lactate Dehydrogenase C-Reactive Protein NT-Pro-B Natriuret Pep Total Protein Albumin Triglycerides Arterial Blood Glucose Urine pH Ur Specific [place] Coronavirus (PCR) 04/14/21 04/14/21 04/14/21 04:32 05:18 11:03 WBC RBC Hgb Hct MCV MCHC RDW Plt Count Lymph % (Auto) [place] % (Auto) Lymph # (Auto) [place] # (Auto) Seg Neutrophils % Seg Neuts % (Manual) Lymphocytes % (Manual) Monocytes % (Manual) Nucleated RBC % Seg Neutrophils # Seg Neutrophils # Man Lymphocytes # (Manual) Monocytes # (Manual) PT INR APTT D-Dimer Heparin Anti-Xa Level ABG pH POC ABG pCO2 POC ABG pO2 ABG pO2 ABG HCO3 ABG O2 Saturation ABG Base Excess ABG Hemoglobin ABG Oxyhemoglobin ABG Sodium ABG Potassium ABG Glucose Oxyhemoglobin Carboxyhemoglobin Sodium Potassium Chloride 95.5 L Carbon Dioxide 38 H BUN Creatinine 0.4 L Glucose 141 H POC Glucose 140 H 143 H Lactic Acid Calcium Phosphorus Magnesium Ferritin Lactate Dehydrogenase C-Reactive Protein NT-Pro-B Natriuret Pep Total Protein Albumin Triglycerides Arterial Blood Glucose Urine pH Ur Specific [place] Coronavirus (PCR) 04/14/21 04/14/21 04/14/21 16:38 23:46 Unknown WBC RBC Hgb Hct MCV MCHC RDW Plt Count Lymph % (Auto) [place] % (Auto) Lymph # (Auto) [place] # (Auto) Seg Neutrophils % Seg Neuts % (Manual) Lymphocytes % (Manual) Monocytes % (Manual) Nucleated RBC % Seg Neutrophils # Seg Neutrophils # Man Lymphocytes # (Manual) Monocytes # (Manual) PT INR APTT D-Dimer Heparin Anti-Xa Level ABG pH POC ABG pCO2 POC ABG pO2 ABG pO2 ABG HCO3 ABG O2 Saturation ABG Base Excess ABG Hemoglobin ABG Oxyhemoglobin ABG Sodium ABG Potassium ABG Glucose Oxyhemoglobin Carboxyhemoglobin Sodium Potassium Chloride Carbon Dioxide BUN Creatinine Glucose POC Glucose 157 H 155 H Lactic Acid Calcium Phosphorus Magnesium Ferritin Lactate Dehydrogenase C-Reactive Protein NT-Pro-B Natriuret Pep Total Protein Albumin Triglycerides Arterial Blood Glucose Urine pH 8.0 H Ur Specific [place] Coronavirus (PCR) 04/15/21 04/15/21 04/15/21 04:44 04:44 05:52 WBC 15.8 H RBC 2.96 L Hgb 8.9 L Hct 27.1 L MCV MCHC RDW 16.5 H Plt Count 507 H Lymph % (Auto) [place] % (Auto) Lymph # (Auto) [place] # (Auto) Seg Neutrophils % Seg Neuts % (Manual) Lymphocytes % (Manual) Monocytes % (Manual) Nucleated RBC % Seg Neutrophils # Seg Neutrophils # Man Lymphocytes # (Manual) Monocytes # (Manual) PT INR APTT D-Dimer Heparin Anti-Xa Level ABG pH POC ABG pCO2 POC ABG pO2 ABG pO2 ABG HCO3 ABG O2 Saturation ABG Base Excess ABG Hemoglobin ABG Oxyhemoglobin ABG Sodium ABG Potassium ABG Glucose Oxyhemoglobin Carboxyhemoglobin Sodium Potassium Chloride 96.9 L Carbon Dioxide 38 H BUN Creatinine 0.4 L Glucose 163 H POC Glucose 167 H Lactic Acid Calcium Phosphorus Magnesium Ferritin Lactate Dehydrogenase C-Reactive Protein NT-Pro-B Natriuret Pep Total Protein Albumin Triglycerides Arterial Blood Glucose Urine pH Ur Specific [place] Coronavirus (PCR) 04/15/21 04/15/21 04/15/21 11:35 17:20 18:10 WBC RBC Hgb Hct MCV MCHC RDW Plt Count Lymph % (Auto) [place] % (Auto) Lymph # (Auto) [place] # (Auto) Seg Neutrophils % Seg Neuts % (Manual) Lymphocytes % (Manual) Monocytes % (Manual) Nucleated RBC % Seg Neutrophils # Seg Neutrophils # Man Lymphocytes # (Manual) Monocytes # (Manual) PT INR APTT D-Dimer Heparin Anti-Xa Level ABG pH 7.477 H POC ABG pCO2 POC ABG pO2 ABG pO2 ABG HCO3 40.6 H ABG O2 Saturation ABG Base Excess 15.2 H ABG Hemoglobin 9.0 L ABG Oxyhemoglobin ABG Sodium ABG Potassium ABG Glucose Oxyhemoglobin 94.7 L Carboxyhemoglobin Sodium Potassium Chloride Carbon Dioxide BUN Creatinine Glucose POC Glucose 179 H 165 H Lactic Acid Calcium Phosphorus Magnesium Ferritin Lactate Dehydrogenase C-Reactive Protein NT-Pro-B Natriuret Pep Total Protein Albumin Triglycerides Arterial Blood Glucose Urine pH Ur Specific [place] Coronavirus (PCR) 04/15/21 04/16/21 04/16/21 23:39 04:33 04:33 WBC 13.1 H RBC 3.26 L Hgb 9.5 L Hct 30.2 L MCV MCHC 31 L RDW 16.2 H Plt Count Lymph % (Auto) [place] % (Auto) Lymph # (Auto) [place] # (Auto) Seg Neutrophils % Seg Neuts % (Manual) Lymphocytes % (Manual) Monocytes % (Manual) Nucleated RBC % Seg Neutrophils # Seg Neutrophils # Man Lymphocytes # (Manual) Monocytes # (Manual) PT INR APTT D-Dimer Heparin Anti-Xa Level ABG pH POC ABG pCO2 POC ABG pO2 ABG pO2 ABG HCO3 ABG O2 Saturation ABG Base Excess ABG Hemoglobin ABG Oxyhemoglobin ABG Sodium ABG Potassium ABG Glucose Oxyhemoglobin Carboxyhemoglobin Sodium Potassium Chloride 95.8 L Carbon Dioxide 34 H BUN 24 H Creatinine 0.4 L Glucose 153 H POC Glucose 155 H Lactic Acid Calcium Phosphorus Magnesium 2.40 H Ferritin Lactate Dehydrogenase C-Reactive Protein NT-Pro-B Natriuret Pep Total Protein Albumin Triglycerides Arterial Blood Glucose Urine pH Ur Specific [place] Coronavirus (PCR) 04/16/21 04/16/21 04/16/21 04:55 05:29 11:02 WBC RBC Hgb Hct MCV MCHC RDW Plt Count Lymph % (Auto) [place] % (Auto) Lymph # (Auto) [place] # (Auto) Seg Neutrophils % Seg Neuts % (Manual) Lymphocytes % (Manual) Monocytes % (Manual) Nucleated RBC % Seg Neutrophils # Seg Neutrophils # Man Lymphocytes # (Manual) Monocytes # (Manual) PT INR APTT D-Dimer Heparin Anti-Xa Level ABG pH 7.487 H POC ABG pCO2 POC ABG pO2 ABG pO2 75.4 L ABG HCO3 40.6 H ABG O2 Saturation ABG Base Excess 15.3 H ABG Hemoglobin 8.9 L ABG Oxyhemoglobin ABG Sodium ABG Potassium ABG Glucose Oxyhemoglobin Carboxyhemoglobin Sodium Potassium Chloride Carbon Dioxide BUN Creatinine Glucose POC Glucose 168 H 170 H Lactic Acid Calcium Phosphorus Magnesium Ferritin Lactate Dehydrogenase C-Reactive Protein NT-Pro-B Natriuret Pep Total Protein Albumin Triglycerides Arterial Blood Glucose Urine pH Ur Specific [place] Coronavirus (PCR) 04/16/21 04/16/21 04/17/21 16:13 23:41 04:25 WBC 12.5 H RBC 3.00 L Hgb 8.9 L Hct 27.2 L MCV MCHC RDW 16.0 H Plt Count Lymph % (Auto) [place] % (Auto) Lymph # (Auto) [place] # (Auto) Seg Neutrophils % Seg Neuts % (Manual) Lymphocytes % (Manual) Monocytes % (Manual) Nucleated RBC % Seg Neutrophils # Seg Neutrophils # Man Lymphocytes # (Manual) Monocytes # (Manual) PT INR APTT D-Dimer Heparin Anti-Xa Level ABG pH POC ABG pCO2 POC ABG pO2 ABG pO2 ABG HCO3 ABG O2 Saturation ABG Base Excess ABG Hemoglobin ABG Oxyhemoglobin ABG Sodium ABG Potassium ABG Glucose Oxyhemoglobin Carboxyhemoglobin Sodium Potassium Chloride Carbon Dioxide BUN Creatinine Glucose POC Glucose 167 H 150 H Lactic Acid Calcium Phosphorus Magnesium Ferritin Lactate Dehydrogenase C-Reactive Protein NT-Pro-B Natriuret Pep Total Protein Albumin Triglycerides Arterial Blood Glucose Urine pH Ur Specific [place] Coronavirus (PCR) 04/17/21 04/17/21 04/17/21 04:25 05:23 11:18 WBC RBC Hgb Hct MCV MCHC RDW Plt Count Lymph % (Auto) [place] % (Auto) Lymph # (Auto) [place] # (Auto) Seg Neutrophils % Seg Neuts % (Manual) Lymphocytes % (Manual) Monocytes % (Manual) Nucleated RBC % Seg Neutrophils # Seg Neutrophils # Man Lymphocytes # (Manual) Monocytes # (Manual) PT INR APTT D-Dimer Heparin Anti-Xa Level ABG pH POC ABG pCO2 POC ABG pO2 ABG pO2 ABG HCO3 ABG O2 Saturation ABG Base Excess ABG Hemoglobin ABG Oxyhemoglobin ABG Sodium ABG Potassium ABG Glucose Oxyhemoglobin Carboxyhemoglobin Sodium 136 L Potassium Chloride 92.4 L Carbon Dioxide 36 H BUN 23 H Creatinine 0.4 L Glucose 145 H POC Glucose 128 H 163 H Lactic Acid Calcium Phosphorus Magnesium Ferritin Lactate Dehydrogenase C-Reactive Protein NT-Pro-B Natriuret Pep Total Protein Albumin Triglycerides Arterial Blood Glucose Urine pH Ur Specific [place] Coronavirus (PCR) 04/17/21 04/17/21 04/18/21 16:50 21:04 00:18 WBC RBC Hgb Hct MCV MCHC RDW Plt Count Lymph % (Auto) [place] % (Auto) Lymph # (Auto) [place] # (Auto) Seg Neutrophils % Seg Neuts % (Manual) Lymphocytes % (Manual) Monocytes % (Manual) Nucleated RBC % Seg Neutrophils # Seg Neutrophils # Man Lymphocytes # (Manual) Monocytes # (Manual) PT INR APTT D-Dimer Heparin Anti-Xa Level ABG pH POC ABG pCO2 POC ABG pO2 ABG pO2 ABG HCO3 ABG O2 Saturation ABG Base Excess ABG Hemoglobin ABG Oxyhemoglobin ABG Sodium ABG Potassium ABG Glucose Oxyhemoglobin Carboxyhemoglobin Sodium Potassium Chloride Carbon Dioxide BUN Creatinine Glucose POC Glucose 137 H 186 H 194 H Lactic Acid Calcium Phosphorus Magnesium Ferritin Lactate Dehydrogenase C-Reactive Protein NT-Pro-B Natriuret Pep Total Protein Albumin Triglycerides Arterial Blood Glucose Urine pH Ur Specific [place] Coronavirus (PCR) 04/18/21 04/18/21 04/18/21 04:20 04:20 05:21 WBC 14.2 H RBC 2.92 L Hgb 8.5 L Hct 26.3 L MCV MCHC RDW 16.1 H Plt Count Lymph % (Auto) [place] % (Auto) Lymph # (Auto) [place] # (Auto) Seg Neutrophils % Seg Neuts % (Manual) Lymphocytes % (Manual) Monocytes % (Manual) Nucleated RBC % Seg Neutrophils # Seg Neutrophils # Man Lymphocytes # (Manual) Monocytes # (Manual) PT INR APTT D-Dimer Heparin Anti-Xa Level ABG pH POC ABG pCO2 POC ABG pO2 ABG pO2 ABG HCO3 ABG O2 Saturation ABG Base Excess ABG Hemoglobin ABG Oxyhemoglobin ABG Sodium ABG Potassium ABG Glucose Oxyhemoglobin Carboxyhemoglobin Sodium Potassium Chloride 95.7 L Carbon Dioxide 33 H BUN 21 H Creatinine 0.3 L Glucose 120 H POC Glucose 107 H Lactic Acid Calcium Phosphorus Magnesium Ferritin Lactate Dehydrogenase C-Reactive Protein NT-Pro-B Natriuret Pep Total Protein Albumin Triglycerides Arterial Blood Glucose Urine pH Ur Specific [place] Coronavirus (PCR) 04/18/21 04/18/21 04/18/21 05:26 11:30 11:33 WBC RBC Hgb Hct MCV MCHC RDW Plt Count Lymph % (Auto) [place] % (Auto) Lymph # (Auto) [place] # (Auto) Seg Neutrophils % Seg Neuts % (Manual) Lymphocytes % (Manual) Monocytes % (Manual) Nucleated RBC % Seg Neutrophils # Seg Neutrophils # Man Lymphocytes # (Manual) Monocytes # (Manual) PT INR APTT D-Dimer Heparin Anti-Xa Level ABG pH 7.469 H POC ABG pCO2 POC ABG pO2 ABG pO2 108.9 H ABG HCO3 36.2 H ABG O2 Saturation ABG Base Excess 11.2 H ABG Hemoglobin 8.8 L ABG Oxyhemoglobin ABG Sodium ABG Potassium ABG Glucose Oxyhemoglobin Carboxyhemoglobin Sodium Potassium Chloride Carbon Dioxide BUN Creatinine Glucose POC Glucose 111 H 113 H Lactic Acid Calcium Phosphorus Magnesium Ferritin Lactate Dehydrogenase C-Reactive Protein NT-Pro-B Natriuret Pep Total Protein Albumin Triglycerides Arterial Blood Glucose Urine pH Ur Specific [place] Coronavirus (PCR) 04/18/21 04/18/21 04/19/21 16:53 23:26 04:26 WBC 13.6 H RBC 2.69 L Hgb 8.5 L Hct 24.4 L MCV MCHC 35 H RDW 15.9 H Plt Count Lymph % (Auto) [place] % (Auto) Lymph # (Auto) [place] # (Auto) Seg Neutrophils % Seg Neuts % (Manual) Lymphocytes % (Manual) Monocytes % (Manual) Nucleated RBC % Seg Neutrophils # Seg Neutrophils # Man Lymphocytes # (Manual) Monocytes # (Manual) PT INR APTT D-Dimer Heparin Anti-Xa Level ABG pH POC ABG pCO2 POC ABG pO2 ABG pO2 ABG HCO3 ABG O2 Saturation ABG Base Excess ABG Hemoglobin ABG Oxyhemoglobin ABG Sodium ABG Potassium ABG Glucose Oxyhemoglobin Carboxyhemoglobin Sodium Potassium Chloride Carbon Dioxide BUN Creatinine Glucose POC Glucose 139 H 137 H Lactic Acid Calcium Phosphorus Magnesium Ferritin Lactate Dehydrogenase C-Reactive Protein NT-Pro-B Natriuret Pep Total Protein Albumin Triglycerides Arterial Blood Glucose Urine pH Ur Specific [place] Coronavirus (PCR) 04/19/21 04/19/21 04/19/21 04:26 05:16 11:01 WBC RBC Hgb Hct MCV MCHC RDW Plt Count Lymph % (Auto) [place] % (Auto) Lymph # (Auto) [place] # (Auto) Seg Neutrophils % Seg Neuts % (Manual) Lymphocytes % (Manual) Monocytes % (Manual) Nucleated RBC % Seg Neutrophils # Seg Neutrophils # Man Lymphocytes # (Manual) Monocytes # (Manual) PT INR APTT D-Dimer Heparin Anti-Xa Level ABG pH POC ABG pCO2 POC ABG pO2 ABG pO2 ABG HCO3 ABG O2 Saturation ABG Base Excess ABG Hemoglobin ABG Oxyhemoglobin ABG Sodium ABG Potassium ABG Glucose Oxyhemoglobin Carboxyhemoglobin Sodium Potassium Chloride Carbon Dioxide BUN Creatinine 0.3 L Glucose 163 H POC Glucose 154 H 164 H Lactic Acid Calcium Phosphorus Magnesium Ferritin Lactate Dehydrogenase C-Reactive Protein NT-Pro-B Natriuret Pep Total Protein Albumin Triglycerides Arterial Blood Glucose Urine pH Ur Specific [place] Coronavirus (PCR) 04/19/21 04/19/21 04/19/21 15:55 21:00 23:13 WBC RBC Hgb Hct MCV MCHC RDW Plt Count Lymph % (Auto) [place] % (Auto) Lymph # (Auto) [place] # (Auto) Seg Neutrophils % Seg Neuts % (Manual) Lymphocytes % (Manual) Monocytes % (Manual) Nucleated RBC % Seg Neutrophils # Seg Neutrophils # Man Lymphocytes # (Manual) Monocytes # (Manual) PT INR APTT D-Dimer Heparin Anti-Xa Level ABG pH POC ABG pCO2 POC ABG pO2 ABG pO2 ABG HCO3 ABG O2 Saturation ABG Base Excess ABG Hemoglobin ABG Oxyhemoglobin ABG Sodium ABG Potassium ABG Glucose Oxyhemoglobin Carboxyhemoglobin Sodium Potassium Chloride Carbon Dioxide BUN Creatinine Glucose POC Glucose 138 H 151 H 147 H Lactic Acid Calcium Phosphorus Magnesium Ferritin Lactate Dehydrogenase C-Reactive Protein NT-Pro-B Natriuret Pep Total Protein Albumin Triglycerides Arterial Blood Glucose Urine pH Ur Specific [place] Coronavirus (PCR) 04/20/21 04/20/21 04/20/21 04:17 04:17 05:15 WBC 13.1 H RBC 2.94 L Hgb 8.8 L Hct 26.8 L MCV MCHC RDW 16.2 H Plt Count Lymph % (Auto) [place] % (Auto) Lymph # (Auto) [place] # (Auto) Seg Neutrophils % Seg Neuts % (Manual) Lymphocytes % (Manual) Monocytes % (Manual) Nucleated RBC % Seg Neutrophils # Seg Neutrophils # Man Lymphocytes # (Manual) Monocytes # (Manual) PT INR APTT D-Dimer Heparin Anti-Xa Level ABG pH POC ABG pCO2 POC ABG pO2 ABG pO2 ABG HCO3 ABG O2 Saturation ABG Base Excess ABG Hemoglobin ABG Oxyhemoglobin ABG Sodium ABG Potassium ABG Glucose Oxyhemoglobin Carboxyhemoglobin Sodium 135 L Potassium Chloride Carbon Dioxide BUN Creatinine 0.3 L Glucose 151 H POC Glucose 126 H Lactic Acid Calcium 8.3 L Phosphorus Magnesium Ferritin Lactate Dehydrogenase C-Reactive Protein NT-Pro-B Natriuret Pep Total Protein Albumin Triglycerides Arterial Blood Glucose Urine pH Ur Specific [place] Coronavirus (PCR) 04/20/21 04/20/21 04/20/21 11:03 16:01 23:54 WBC RBC Hgb Hct MCV MCHC RDW Plt Count Lymph % (Auto) [place] % (Auto) Lymph # (Auto) [place] # (Auto) Seg Neutrophils % Seg Neuts % (Manual) Lymphocytes % (Manual) Monocytes % (Manual) Nucleated RBC % Seg Neutrophils # Seg Neutrophils # Man Lymphocytes # (Manual) Monocytes # (Manual) PT INR APTT D-Dimer Heparin Anti-Xa Level ABG pH POC ABG pCO2 POC ABG pO2 ABG pO2 ABG HCO3 ABG O2 Saturation ABG Base Excess ABG Hemoglobin ABG Oxyhemoglobin ABG Sodium ABG Potassium ABG Glucose Oxyhemoglobin Carboxyhemoglobin Sodium Potassium Chloride Carbon Dioxide BUN Creatinine Glucose POC Glucose 154 H 152 H 145 H Lactic Acid Calcium Phosphorus Magnesium Ferritin Lactate Dehydrogenase C-Reactive Protein NT-Pro-B Natriuret Pep Total Protein Albumin Triglycerides Arterial Blood Glucose Urine pH Ur Specific [place] Coronavirus (PCR) 04/21/21 04/21/21 04/21/21 04:39 11:20 11:37 WBC RBC Hgb Hct MCV MCHC RDW Plt Count Lymph % (Auto) [place] % (Auto) Lymph # (Auto) [place] # (Auto) Seg Neutrophils % Seg Neuts % (Manual) Lymphocytes % (Manual) Monocytes % (Manual) Nucleated RBC % Seg Neutrophils # Seg Neutrophils # Man Lymphocytes # (Manual) Monocytes # (Manual) PT INR APTT D-Dimer Heparin Anti-Xa Level ABG pH 7.503 H POC ABG pCO2 POC ABG pO2 ABG pO2 ABG HCO3 ABG O2 Saturation ABG Base Excess ABG Hemoglobin 10.8 L ABG Oxyhemoglobin ABG Sodium ABG Potassium ABG Glucose Oxyhemoglobin Carboxyhemoglobin 0.1 L Sodium Potassium Chloride Carbon Dioxide BUN Creatinine 0.3 L Glucose 174 H POC Glucose 147 H Lactic Acid Calcium Phosphorus Magnesium Ferritin Lactate Dehydrogenase C-Reactive Protein NT-Pro-B Natriuret Pep Total Protein Albumin Triglycerides Arterial Blood Glucose Urine pH Ur Specific [place] Coronavirus (PCR) 04/21/21 04/21/21 04/21/21 11:48 12:11 17:56 WBC 14.5 H RBC 3.08 L Hgb 9.3 L Hct 28.2 L MCV MCHC RDW 16.5 H Plt Count Lymph % (Auto) [place] % (Auto) Lymph # (Auto) [place] # (Auto) Seg Neutrophils % Seg Neuts % (Manual) Lymphocytes % (Manual) Monocytes % (Manual) Nucleated RBC % Seg Neutrophils # Seg Neutrophils # Man Lymphocytes # (Manual) Monocytes # (Manual) PT INR APTT D-Dimer Heparin Anti-Xa Level ABG pH POC ABG pCO2 POC ABG pO2 ABG pO2 ABG HCO3 ABG O2 Saturation ABG Base Excess ABG Hemoglobin ABG Oxyhemoglobin ABG Sodium ABG Potassium ABG Glucose Oxyhemoglobin Carboxyhemoglobin Sodium Potassium Chloride Carbon Dioxide BUN Creatinine Glucose POC Glucose 154 H 138 H Lactic Acid Calcium Phosphorus Magnesium Ferritin Lactate Dehydrogenase C-Reactive Protein NT-Pro-B Natriuret Pep Total Protein Albumin Triglycerides Arterial Blood Glucose Urine pH Ur Specific [place] Coronavirus (PCR) 04/21/21 04/22/21 04/22/21 23:31 04:30 04:30 WBC 12.3 H RBC 3.20 L Hgb 9.5 L Hct 29.3 L MCV MCHC RDW 16.6 H Plt Count Lymph % (Auto) [place] % (Auto) Lymph # (Auto) [place] # (Auto) Seg Neutrophils % Seg Neuts % (Manual) Lymphocytes % (Manual) Monocytes % (Manual) Nucleated RBC % Seg Neutrophils # Seg Neutrophils # Man Lymphocytes # (Manual) Monocytes # (Manual) PT INR APTT D-Dimer Heparin Anti-Xa Level ABG pH POC ABG pCO2 POC ABG pO2 ABG pO2 ABG HCO3 ABG O2 Saturation ABG Base Excess ABG Hemoglobin ABG Oxyhemoglobin ABG Sodium ABG Potassium ABG Glucose Oxyhemoglobin Carboxyhemoglobin Sodium Potassium Chloride Carbon Dioxide BUN Creatinine 0.3 L Glucose 125 H POC Glucose 162 H Lactic Acid Calcium Phosphorus Magnesium Ferritin Lactate Dehydrogenase C-Reactive Protein NT-Pro-B Natriuret Pep Total Protein Albumin Triglycerides Arterial Blood Glucose Urine pH Ur Specific [place] Coronavirus (PCR) 04/22/21 04/22/21 04/22/21 05:17 12:03 17:22 WBC RBC Hgb Hct MCV MCHC RDW Plt Count Lymph % (Auto) [place] % (Auto) Lymph # (Auto) [place] # (Auto) Seg Neutrophils % Seg Neuts % (Manual) Lymphocytes % (Manual) Monocytes % (Manual) Nucleated RBC % Seg Neutrophils # Seg Neutrophils # Man Lymphocytes # (Manual) Monocytes # (Manual) PT INR APTT D-Dimer Heparin Anti-Xa Level ABG pH POC ABG pCO2 POC ABG pO2 ABG pO2 ABG HCO3 ABG O2 Saturation ABG Base Excess ABG Hemoglobin ABG Oxyhemoglobin ABG Sodium ABG Potassium ABG Glucose Oxyhemoglobin Carboxyhemoglobin Sodium Potassium Chloride Carbon Dioxide BUN Creatinine Glucose POC Glucose 112 H 156 H 133 H Lactic Acid Calcium Phosphorus Magnesium Ferritin Lactate Dehydrogenase C-Reactive Protein NT-Pro-B Natriuret Pep Total Protein Albumin Triglycerides Arterial Blood Glucose Urine pH Ur Specific [place] Coronavirus (PCR) 04/23/21 04/23/21 04/23/21 00:58 05:08 12:59 WBC RBC Hgb Hct MCV MCHC RDW Plt Count Lymph % (Auto) [place] % (Auto) Lymph # (Auto) [place] # (Auto) Seg Neutrophils % Seg Neuts % (Manual) Lymphocytes % (Manual) Monocytes % (Manual) Nucleated RBC % Seg Neutrophils # Seg Neutrophils # Man Lymphocytes # (Manual) Monocytes # (Manual) PT INR APTT D-Dimer Heparin Anti-Xa Level ABG pH POC ABG pCO2 POC ABG pO2 ABG pO2 ABG HCO3 ABG O2 Saturation ABG Base Excess ABG Hemoglobin ABG Oxyhemoglobin ABG Sodium ABG Potassium ABG Glucose Oxyhemoglobin Carboxyhemoglobin Sodium Potassium Chloride Carbon Dioxide BUN Creatinine Glucose POC Glucose 133 H 156 H 139 H Lactic Acid Calcium Phosphorus Magnesium Ferritin Lactate Dehydrogenase C-Reactive Protein NT-Pro-B Natriuret Pep Total Protein Albumin Triglycerides Arterial Blood Glucose Urine pH Ur Specific [place] Coronavirus (PCR) 04/23/21 04/23/21 04/24/21 18:12 23:41 04:00 WBC 12.9 H RBC 3.33 L Hgb 10.2 L Hct 30.1 L MCV MCHC RDW 16.6 H Plt Count Lymph % (Auto) [place] % (Auto) Lymph # (Auto) [place] # (Auto) Seg Neutrophils % Seg Neuts % (Manual) Lymphocytes % (Manual) Monocytes % (Manual) Nucleated RBC % Seg Neutrophils # Seg Neutrophils # Man Lymphocytes # (Manual) Monocytes # (Manual) PT INR APTT D-Dimer Heparin Anti-Xa Level ABG pH POC ABG pCO2 POC ABG pO2 ABG pO2 ABG HCO3 ABG O2 Saturation ABG Base Excess ABG Hemoglobin ABG Oxyhemoglobin ABG Sodium ABG Potassium ABG Glucose Oxyhemoglobin Carboxyhemoglobin Sodium Potassium Chloride Carbon Dioxide BUN Creatinine Glucose POC Glucose 148 H 127 H Lactic Acid Calcium Phosphorus Magnesium Ferritin Lactate Dehydrogenase C-Reactive Protein NT-Pro-B Natriuret Pep Total Protein Albumin Triglycerides Arterial Blood Glucose Urine pH Ur Specific [place] Coronavirus (PCR) 04/24/21 04/24/21 04/24/21 04:00 05:15 11:45 WBC RBC Hgb Hct MCV MCHC RDW Plt Count Lymph % (Auto) [place] % (Auto) Lymph # (Auto) [place] # (Auto) Seg Neutrophils % Seg Neuts % (Manual) Lymphocytes % (Manual) Monocytes % (Manual) Nucleated RBC % Seg Neutrophils # Seg Neutrophils # Man Lymphocytes # (Manual) Monocytes # (Manual) PT INR APTT D-Dimer Heparin Anti-Xa Level ABG pH POC ABG pCO2 POC ABG pO2 ABG pO2 ABG HCO3 ABG O2 Saturation ABG Base Excess ABG Hemoglobin ABG Oxyhemoglobin ABG Sodium ABG Potassium ABG Glucose Oxyhemoglobin Carboxyhemoglobin Sodium Potassium Chloride Carbon Dioxide BUN Creatinine 0.4 L Glucose 136 H POC Glucose 135 H 140 H Lactic Acid Calcium Phosphorus Magnesium Ferritin Lactate Dehydrogenase C-Reactive Protein NT-Pro-B Natriuret Pep Total Protein Albumin Triglycerides Arterial Blood Glucose Urine pH Ur Specific [place] Coronavirus (PCR) 04/24/21 04/24/21 04/24/21 16:06 18:26 23:48 WBC RBC Hgb Hct MCV MCHC RDW Plt Count Lymph % (Auto) [place] % (Auto) Lymph # (Auto) [place] # (Auto) Seg Neutrophils % Seg Neuts % (Manual) Lymphocytes % (Manual) Monocytes % (Manual) Nucleated RBC % Seg Neutrophils # Seg Neutrophils # Man Lymphocytes # (Manual) Monocytes # (Manual) PT INR APTT D-Dimer Heparin Anti-Xa Level ABG pH POC ABG pCO2 POC ABG pO2 ABG pO2 ABG HCO3 ABG O2 Saturation ABG Base Excess ABG Hemoglobin ABG Oxyhemoglobin ABG Sodium ABG Potassium ABG Glucose Oxyhemoglobin Carboxyhemoglobin Sodium Potassium Chloride Carbon Dioxide BUN Creatinine Glucose POC Glucose 141 H 141 H 129 H Lactic Acid Calcium Phosphorus Magnesium Ferritin Lactate Dehydrogenase C-Reactive Protein NT-Pro-B Natriuret Pep Total Protein Albumin Triglycerides Arterial Blood Glucose Urine pH Ur Specific [place] Coronavirus (PCR) 04/25/21 04/25/21 04/25/21 05:27 11:27 15:04 WBC RBC Hgb Hct MCV MCHC RDW Plt Count Lymph % (Auto) [place] % (Auto) Lymph # (Auto) [place] # (Auto) Seg Neutrophils % Seg Neuts % (Manual) Lymphocytes % (Manual) Monocytes % (Manual) Nucleated RBC % Seg Neutrophils # Seg Neutrophils # Man Lymphocytes # (Manual) Monocytes # (Manual) PT INR APTT D-Dimer Heparin Anti-Xa Level ABG pH POC ABG pCO2 POC ABG pO2 ABG pO2 ABG HCO3 ABG O2 Saturation ABG Base Excess ABG Hemoglobin ABG Oxyhemoglobin ABG Sodium ABG Potassium ABG Glucose Oxyhemoglobin Carboxyhemoglobin Sodium 135 L Potassium Chloride Carbon Dioxide BUN Creatinine 0.4 L Glucose 142 H POC Glucose 142 H 151 H Lactic Acid Calcium Phosphorus Magnesium Ferritin Lactate Dehydrogenase C-Reactive Protein NT-Pro-B Natriuret Pep Total Protein Albumin Triglycerides Arterial Blood Glucose Urine pH Ur Specific [place] Coronavirus (PCR) 04/25/21 04/26/21 04/26/21 23:34 05:36 07:51 WBC RBC Hgb Hct MCV MCHC RDW Plt Count Lymph % (Auto) [place] % (Auto) Lymph # (Auto) [place] # (Auto) Seg Neutrophils % Seg Neuts % (Manual) Lymphocytes % (Manual) Monocytes % (Manual) Nucleated RBC % Seg Neutrophils # Seg Neutrophils # Man Lymphocytes # (Manual) Monocytes # (Manual) PT INR APTT D-Dimer Heparin Anti-Xa Level ABG pH POC ABG pCO2 POC ABG pO2 ABG pO2 ABG HCO3 ABG O2 Saturation ABG Base Excess ABG Hemoglobin ABG Oxyhemoglobin ABG Sodium ABG Potassium ABG Glucose Oxyhemoglobin Carboxyhemoglobin Sodium Potassium Chloride Carbon Dioxide BUN Creatinine Glucose POC Glucose 127 H 135 H 129 H Lactic Acid Calcium Phosphorus Magnesium Ferritin Lactate Dehydrogenase C-Reactive Protein NT-Pro-B Natriuret Pep Total Protein Albumin Triglycerides Arterial Blood Glucose Urine pH Ur Specific [place] Coronavirus (PCR) 04/26/21 04/26/21 04/26/21 11:24 18:14 21:07 WBC RBC Hgb Hct MCV MCHC RDW Plt Count Lymph % (Auto) [place] % (Auto) Lymph # (Auto) [place] # (Auto) Seg Neutrophils % Seg Neuts % (Manual) Lymphocytes % (Manual) Monocytes % (Manual) Nucleated RBC % Seg Neutrophils # Seg Neutrophils # Man Lymphocytes # (Manual) Monocytes # (Manual) PT INR APTT D-Dimer Heparin Anti-Xa Level ABG pH POC ABG pCO2 POC ABG pO2 ABG pO2 ABG HCO3 ABG O2 Saturation ABG Base Excess ABG Hemoglobin ABG Oxyhemoglobin ABG Sodium ABG Potassium ABG Glucose Oxyhemoglobin Carboxyhemoglobin Sodium Potassium Chloride Carbon Dioxide BUN Creatinine Glucose POC Glucose 129 H 109 H 122 H Lactic Acid Calcium Phosphorus Magnesium Ferritin Lactate Dehydrogenase C-Reactive Protein NT-Pro-B Natriuret Pep Total Protein Albumin Triglycerides Arterial Blood Glucose Urine pH Ur Specific [place] Coronavirus (PCR) 04/27/21 04/27/21 04/27/21 06:13 11:03 16:32 WBC RBC Hgb Hct MCV MCHC RDW Plt Count Lymph % (Auto) [place] % (Auto) Lymph # (Auto) [place] # (Auto) Seg Neutrophils % Seg Neuts % (Manual) Lymphocytes % (Manual) Monocytes % (Manual) Nucleated RBC % Seg Neutrophils # Seg Neutrophils # Man Lymphocytes # (Manual) Monocytes # (Manual) PT INR APTT D-Dimer Heparin Anti-Xa Level ABG pH POC ABG pCO2 POC ABG pO2 ABG pO2 ABG HCO3 ABG O2 Saturation ABG Base Excess ABG Hemoglobin ABG Oxyhemoglobin ABG Sodium ABG Potassium ABG Glucose Oxyhemoglobin Carboxyhemoglobin Sodium Potassium Chloride Carbon Dioxide BUN Creatinine Glucose POC Glucose 112 H 134 H 136 H Lactic Acid Calcium Phosphorus Magnesium Ferritin Lactate Dehydrogenase C-Reactive Protein NT-Pro-B Natriuret Pep Total Protein Albumin Triglycerides Arterial Blood Glucose Urine pH Ur Specific [place] Coronavirus (PCR) 04/28/21 04/28/21 04/28/21 00:05 05:31 11:20 WBC RBC Hgb Hct MCV MCHC RDW Plt Count Lymph % (Auto) [place] % (Auto) Lymph # (Auto) [place] # (Auto) Seg Neutrophils % Seg Neuts % (Manual) Lymphocytes % (Manual) Monocytes % (Manual) Nucleated RBC % Seg Neutrophils # Seg Neutrophils # Man Lymphocytes # (Manual) Monocytes # (Manual) PT INR APTT D-Dimer Heparin Anti-Xa Level ABG pH POC ABG pCO2 POC ABG pO2 ABG pO2 ABG HCO3 ABG O2 Saturation ABG Base Excess ABG Hemoglobin ABG Oxyhemoglobin ABG Sodium ABG Potassium ABG Glucose Oxyhemoglobin Carboxyhemoglobin Sodium Potassium Chloride Carbon Dioxide BUN Creatinine Glucose POC Glucose 113 H 116 H 116 H Lactic Acid Calcium Phosphorus Magnesium Ferritin Lactate Dehydrogenase C-Reactive Protein NT-Pro-B Natriuret Pep Total Protein Albumin Triglycerides Arterial Blood Glucose Urine pH Ur Specific [place] Coronavirus (PCR) 04/28/21 04/29/21 04/29/21 23:36 05:03 05:03 WBC RBC 3.15 L Hgb 9.8 L Hct 29.1 L MCV MCHC RDW 17.6 H Plt Count Lymph % (Auto) [place] % (Auto) Lymph # (Auto) [place] # (Auto) Seg Neutrophils % Seg Neuts % (Manual) Lymphocytes % (Manual) Monocytes % (Manual) Nucleated RBC % Seg Neutrophils # Seg Neutrophils # Man Lymphocytes # (Manual) Monocytes # (Manual) PT INR APTT D-Dimer Heparin Anti-Xa Level ABG pH POC ABG pCO2 POC ABG pO2 ABG pO2 ABG HCO3 ABG O2 Saturation ABG Base Excess ABG Hemoglobin ABG Oxyhemoglobin ABG Sodium ABG Potassium ABG Glucose Oxyhemoglobin Carboxyhemoglobin Sodium 136 L Potassium Chloride Carbon Dioxide BUN 8 L Creatinine 0.3 L Glucose 115 H POC Glucose 120 H Lactic Acid Calcium Phosphorus Magnesium Ferritin Lactate Dehydrogenase C-Reactive Protein NT-Pro-B Natriuret Pep Total Protein Albumin Triglycerides Arterial Blood Glucose Urine pH Ur Specific [place] Coronavirus (PCR) 04/29/21 04/29/21 04/29/21 05:23 12:42 18:23 WBC RBC Hgb Hct MCV MCHC RDW Plt Count Lymph % (Auto) [place] % (Auto) Lymph # (Auto) [place] # (Auto) Seg Neutrophils % Seg Neuts % (Manual) Lymphocytes % (Manual) Monocytes % (Manual) Nucleated RBC % Seg Neutrophils # Seg Neutrophils # Man Lymphocytes # (Manual) Monocytes # (Manual) PT INR APTT D-Dimer Heparin Anti-Xa Level ABG pH POC ABG pCO2 POC ABG pO2 ABG pO2 ABG HCO3 ABG O2 Saturation ABG Base Excess ABG Hemoglobin ABG Oxyhemoglobin ABG Sodium ABG Potassium ABG Glucose Oxyhemoglobin Carboxyhemoglobin Sodium Potassium Chloride Carbon Dioxide BUN Creatinine Glucose POC Glucose 112 H 129 H 110 H Lactic Acid Calcium Phosphorus Magnesium Ferritin Lactate Dehydrogenase C-Reactive Protein NT-Pro-B Natriuret Pep Total Protein Albumin Triglycerides Arterial Blood Glucose Urine pH Ur Specific [place] Coronavirus (PCR) 04/29/21 04/30/21 04/30/21 22:14 06:12 11:34 WBC RBC Hgb Hct MCV MCHC RDW Plt Count Lymph % (Auto) [place] % (Auto) Lymph # (Auto) [place] # (Auto) Seg Neutrophils % Seg Neuts % (Manual) Lymphocytes % (Manual) Monocytes % (Manual) Nucleated RBC % Seg Neutrophils # Seg Neutrophils # Man Lymphocytes # (Manual) Monocytes # (Manual) PT INR APTT D-Dimer Heparin Anti-Xa Level ABG pH POC ABG pCO2 POC ABG pO2 ABG pO2 ABG HCO3 ABG O2 Saturation ABG Base Excess ABG Hemoglobin ABG Oxyhemoglobin ABG Sodium ABG Potassium ABG Glucose Oxyhemoglobin Carboxyhemoglobin Sodium Potassium Chloride Carbon Dioxide BUN Creatinine Glucose POC Glucose 113 H 117 H 129 H Lactic Acid Calcium Phosphorus Magnesium Ferritin Lactate Dehydrogenase C-Reactive Protein NT-Pro-B Natriuret Pep Total Protein Albumin Triglycerides Arterial Blood Glucose Urine pH Ur Specific [place] Coronavirus (PCR) 04/30/21 16:22 WBC RBC Hgb Hct MCV MCHC RDW Plt Count Lymph % (Auto) [place] % (Auto) Lymph # (Auto) [place] # (Auto) Seg Neutrophils % Seg Neuts % (Manual) Lymphocytes % (Manual) Monocytes % (Manual) Nucleated RBC % Seg Neutrophils # Seg Neutrophils # Man Lymphocytes # (Manual) Monocytes # (Manual) PT INR APTT D-Dimer Heparin Anti-Xa Level ABG pH POC ABG pCO2 POC ABG pO2 ABG pO2 ABG HCO3 ABG O2 Saturation ABG Base Excess ABG Hemoglobin ABG Oxyhemoglobin ABG Sodium ABG Potassium ABG Glucose Oxyhemoglobin Carboxyhemoglobin Sodium Potassium Chloride Carbon Dioxide BUN Creatinine Glucose POC Glucose 136 H Lactic Acid Calcium Phosphorus Magnesium Ferritin Lactate Dehydrogenase C-Reactive Protein NT-Pro-B Natriuret Pep Total Protein Albumin Triglycerides Arterial Blood Glucose Urine pH Ur Specific [place] Coronavirus (PCR) Chest x-ray: report reviewed, image reviewed Additional Studies: CHEST 1 VIEW 04/30/21 INDICATION / CLINICAL INFORMATION: Follow up on pulmonary infiltrates.. COMPARISON: Chest x-ray 04/17/2021 FINDINGS: SUPPORT DEVICES: Stable positioning of tracheostomy tube. HEART / MEDIASTINUM: Unchanged cardiomediastinal silhouette. LUNGS / PLEURA: Opacities bilaterally present within the mid to lower lungs as well as perhaps minimal prominence of the central vasculature are without significant change. Low lung volumes remain present. No pneumothorax. ADDITIONAL FINDINGS: No significant additional findings. IMPRESSION: 1. No adverse change. Minimal lung opacity suggesting atelectasis, edema, or infection remain present. Mild vascular congestive changes versus crowding given low lung volumes could additionally be considered. Allied health notes reviewed: nursing
[2021-04-30 18:13] LABS: ABG Base Excess 4.9 mmol/L (-2.0-3.0); ABG HCO3 28.7 mmol/L (20.0-26.0); ABG Methemoglobin 0.6 % (0.0-1.5); ABG Oxygen Saturation 97.2 % (95.0-99.0); ABG PCO2 39.7 mm Hg; ABG PH 7.477 pH Units (7.350-7.450)
[2021-04-30] MEDS: INSULIN GLARGINE 100 UNITS/ML SUB-Q SCH (21:39)
[2021-05-01] MEDS: INSULIN LISPRO 100 UNIT/ML SUB-Q SCH ×5 (00:17→23:46)
[2021-05-01] MEDS: hydrALAZINE 25 MG TAB FEEDTUBE SCH ×3 (05:33→21:00)
[2021-05-01] MEDS: ARFORMOTEROL 15 MCG/2 ML NEBU IH SCH ×2 (07:36→20:49)
[2021-05-01] MEDS: METOPROLOL TARTRATE 25 MG TAB FEEDTUBE SCH ×2 (10:08→21:02)
[2021-05-01] MEDS: DOCUSATE SODIUM 100 MG/10 ML ORAL LIQD FEEDTUBE SCH ×2 (10:08→21:01)
[2021-05-01] MEDS: SCOPOLAMINE TRANSDERMAL PATCH 72 HR TD SCH (10:08)
[2021-05-01] MEDS: DOXAZOSIN 1 MG TAB FEEDTUBE SCH ×2 (10:08→21:01)
[2021-05-01] MEDS: amLODIPine 10 MG TAB FEEDTUBE SCH (10:08)
[2021-05-01] MEDS: FAMOTIDINE 20 MG TAB FEEDTUBE SCH ×2 (10:08→21:02)
[2021-05-01] MEDS: APIXABAN 5 MG TAB FEEDTUBE SCH ×2 (10:08→21:01)
[2021-05-01] MEDS: FUROSEMIDE 40 MG/4 ML INJ IV SCH (10:09)
[2021-05-01] MEDS: GLYCOPYRROLATE 2 MG TAB PO SCH ×3 (10:10→20:34)
[2021-05-01] MEDS: oxyCODONE 5 MG TAB FEEDTUBE PRN ×2 (10:31→20:34)
--- NOTE | 2021-05-01 11:28 | XRay Report ---
LEFT KNEE 2 VIEW(S) INDICATION / CLINICAL INFORMATION: pain COMPARISON: None available. FINDINGS: BONES / JOINT(S): No acute fracture or dislocation. 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 Degenerative enthesopathic change o f the quadriceps tendon at its attachment onto the superior pole of patella. There is a 1.6 cm ossifi ed body near the distal patellar tendon which could represent sequela of old Yovani-Schlatter disease versus intra-articular body. Benign degenerative changes of the posterior tibial cortex at attachmen t of soleus muscle. SOFT TISSUES: No significant abnormality. ADDITIONAL FINDINGS: None. Signer Name: Dayron Burton MD Signed: 05/01/2021 11:23 AM Workstation Name: [id number]
--- NOTE | 2021-05-01 14:58 | Progress Note ---
Assessment and Plan Assessment and plan: This is a 61-year-old male with past medical history of HTN and DM admitted for sepsis and acute hypoxic respiratory failure 2/2 COVID pneumonia s/p Trach and PEG on 2/ Hospital Course to Date: 03/09: The patient was seen and evaluated today, and he was found to be hemodynamically stable. The patient is currently on BiPAP for possible COVID-19 pneumonia. He was started on Lovenox 1mg/kg for DVT ppx in the setting of d- dimer > 10,000. Infectious Disease was consulted. The patient is pending a TTE. 03/10: No acute events overnight, patient was intubated in the afternoon transferred to ICU 03/11: Patient started on Lantus, free water flushes increased, propofol drip res umed and oral antihypertensive added. 03/12: lantus increased, k at 5, will monitor. I updated his family and his stated that he is not vaccinated. He does have HTN and she will call the RN to update home medications. She did say he takes bystolic and amlopine. She inquired about ventilator and lab work. She had no further questions. 03/13: KVNG overnight. Patient remains hyperglycemic, basal insulin adjusted and increased to Q12hrs. Patient is overall net positive since admit X1 dose of IV lasix, repeat BMP this afternoon. 03/14: Failed SAT this am due to increase agitation, tachycardia and hypertension. Remains on propofol and fentanyl gtt. Hyperkalemia treated with PO kayaxalate. Patient responded to IV lasix yesterday additional dose again today for a net negative balance. Repeat BMP this afternoon. Insulin adjusted for hyperglycemia. 03/15: Remains encephalopathic, not following commansd. Orders placed for CT head/Brain and Neuro consulted. Rectal bleeding subsided, most likely due to hemorrhoids. H&H is stable will continue to monitor. Kayaxexalate for high K, repeat labs 4 to 6hrs post treatment. 03/16: Still agiated this am, CT head with no acute Abn. CXR and ABG noted- evolving pna and worsening hypoxia, now with low grade fevers. Sputum culture ordered, IV Abx added, ID on cosult. 03/17: This am ABG noted, hypoxia improved. Continue to wean FiO2 as tolerated. Still with low grade fevers, on IV Abx per ID. Still with periods of confusion despite sedation, seroquel increased. F/u CXR in the am 03/18: still very agitated especially when off sedation, with hypertension and tachycardia. Continue sedation for RASS -2, PRN antihypertensive for SPB greater than 160. This febrile this am, continue current IV abx per ID 03/19: Patient afebrile overnight, continue IV Abx per ID. ABG also improved this am, continue to wean FIO2 as tolerated. PRN antihypertensive for hypertension. 03/20: Hyperkalemia treated with Kayexalate, Good discontinued, vancomycin and cefepime stopped started Bactrim by ID. Steroid taper started. 03/21: BB started for hypertension, Seroquel increased for agitation and Librium started no acute events reported overnight. [facility] made vent changes 03/22: Adjustment to anxiolytics, respiratory rate on ventilator per [facility]. Patient noted to have bleeding hemorrhoids with clot, requested RN to remove bowel management system and will order Preparation H. 03/23: Given no confirmed DVT or PE (only superficial thrombus noted on Dopplers) therapeutic Lovenox changed to prophylactic Lovenox. Started on doxazosin to help with retention. Consulted surgery for tracheostomy and propofol discontinued. 03/24: Surgery consult completed, patient changed to prophylaxis anticoagulation, started on doxazosin yesterday with plans to remove Good catheter in 48 hours. Patient with slight hypokalemia today and given Kayexalate. No acute events reported overnight. 03/25: No acute events reported overnight. Patient remains on fentanyl drip and on CPAP trial this morning. 03/26: no acute events reported overnight. placed on CPAP this AM, remains on fent/librium. scheduled for trach/peg this week. 03/27: Hypoglycemic this am, will decreased lantus to Qhs. Plan for possible Trach and Peg by Gen Surg this am. Case management to arrange possible LTAC placement 03/28: KVNG overnight. Tolerating PST this am. Plan for trach and PEG tomorrow by Gen. Surgery, NPO after midnight. 03/29: No significant changes overnight. Plan for trach and Peg today. Case management to arrange possible LTAC placement 03/30. S/p Trach and PEG, no complications noted. High residual yesterday despite NPO status, reglan added X2 days. Per RN no residual this am, patient is tolerating TF. Continue to advance TF as tolerated. Norvasc added for hypertension. Pitting edema also appreciated, some diuretic might be beneficial, will d/w CCM. Continue daily PST as tolerated. 03/31: Patient remains on the vent still on fentanyl gtt with periods of agitation. PRN analgesia added, plan to start weaning off fentanyl gtt. Febrile this am, completed IV abx course. Will panculture for now, ID is also following. 04/01: Still febrile overnight, cultures result pending, continue IV ABx per ID. Failed PST this am. Continue daily PST and vent wean per [facility]. Case management to arrange possible placement. 04/02: KVNG overnight. Fevers improved overnight, continue to follow cultures data, IV ABx per ID. Continue daily PST and wean vent as per [facility].\ 04/03: Given low procalcitonin, unchanged CXR and cultures with no growth cefepime was discontinued by ID. LTAC evaluation ongoing. No acute events reported overnight. 04/04: IV Lasix stopped today, Seroquel taper started, fentanyl drip on hold and steroids stopped. Pressure support trial again today. 04/05: Patient had to be restarted on fentanyl drip therefore Seroquel was increased back to 250 twice daily and he was started on scheduled narcotics and efforts to wean fentanyl drip. Doxazosin was increased to twice daily as patient still had retention issues on doxazosin once a day. Patient was denied LTAC placement. CPAP trial today. 04/06: Right upper extremity ultrasound obtained due to edema which showed DVT. Patient started on heparin drip. Overnight patient had hypoxia, tachypnea, tachycardia, hypotension and FiO2 was increased to 100%. RT titrating as tolerated. Plan was to start T-piece trials today. Patient has been denied LTAC placement. 04/07: BLE dopplar, continue lasix per [facility], CXR in AM. Increase in fio2 overnight d/t desaturation. Wean FiO2 as tolerated. 04/08: Patient remains on 65% FiO2, s/p Lasix for 3 doses, hyperkalemia noted today and medically treated. [facility] plans to consult heme/onc once FiO2 decreased. Remains on heparin gtt 04/09: No acute events reported overnight, possible heme-onc consult on Saturday or Saturday regarding upper extremity DVT, wean FiO2 as tolerated. Repeat CT head on Monday 04/10: Patient mentation is unchanged, repeat CT head today. Remains on heparin gtt per protocol. Continue daily PST as tolerated. 04/11: Increased work of breathing and high RR overnight, vent FiO2 increased to 55%. Resolved this am, patient is tolerating PST, no acute distress noted. Wean Fio2 as tolerated for SPO2 above 92%, Follow up CXR and ABG in the am. Antihypertensive regimen adjusted for better BP control. 04/12: Patient with coarse lungs and increased secretion today. This am CXR noted with worsen infiltrate, 40 of Lasix given, repeat CXR in the am. Patient remains afebrile, complete IV Abx course, VSS. Transitioned to PO Eliquis overnight, continue to keep patient net negative for better lung compliance. Continue daily PST as tolerated. 04/13: Patient is off sedation this am. Remains unresponsive. Librium D/C and Seroquel was adjusted to Qhs, PRN analgesia for pain management. Patient responded well to IV lasix, this am CXR with some improvement, additional IV lasix ordered again today. high CO2 also noted from this am, ABG ordered. Patient is tolerating PST this am, SPO2 remains above 95%. Continue daily PST plan to get patient off the vent for possible SNF placemement 04/14: Patient mentation is unchanged despite reducing sedative agents. Will hold all scheduled sedatives agents for now, PRN analgesics for pain management and vent synchrony. Patient spike a temp this am, orders placed for cultures, IV abx per ID. Additional lasix today, F/u CXR in the am. Patient is tolerating PST this am. 04/15: Remains febrile overnight. Culture data pending, back on IV Abx per ID. Gentle fluid management with IV lasix. Keep patient at a net negative balance. Continue daily PST as tolerated. 04/16: Open eyes spontaneously this am, but still not following commands. MRI brain ordered. Continue to avoid any sedative agents. Patient continue to respon d very well to IV diuretic, continue gentle diurese X3days as tolerated. Continue daily PST as tolerated. Plan is get patient off the vent for possible SNF placement. Patient remains febrile this am, now cefepine and Vanc, continue IV abx per ID. 04/17: We will repeat procalcitonin per ID, MRI brain pending, SNF placement pending, [facility] plans to start T-piece trials in the morning and will discontinue Good catheter again. 04/18: Overnight patient to be straight cath x2 but did eventually have spo ntaneous urine output today and Good catheter was not replaced, patient had MRI brain today and was started on T-piece trials. He received Versed for sedation for MRI brain. 04/19: Good catheter was not replaced overnight patient is still voiding, placed on T-piece today, scopolamine and Robinul restarted. 04/20: Patient T-piece trial again today, will decrease bowel regimen in a.m. for entering T-piece for 24 hours obtain gas in the a.m. Cefazolin increased 04/21: Patient remained on trach collar throughout the day, will be transitioned to IMCU. Good catheter was replaced overnight due to retention. 04/22: Patient continues to tolerate Trach collar, still with volume overload will continue with diuresis, monitor electrolytes, aggressive pulmonary toliet, aspiration precautions 04/23: Patient remains on trach collar which he is tolerating. Remains on cefazolin, Cardura and Lasix. 04/24: KVNG overnight. Patient is AAO, following commands, and tolerating T-piece. Continue PT 5X/week. Pending SNF vs Subacute rehab placement, case management to arrange. 04/25: KVNG overnight. Remains stable, tolerating T-piece. Plan for possible PSMV trial with speech once available. 04/26: Patient remains stable on T-piece. Awaiting possible SNF placement, case management to arrange. 04/27: Patient remains clinically stable continues on T-piece awaiting SNF placement. Mild leukocytosis but otherwise improving no fever noted at this time. Continue diuresis as there is improvement noted. He is able to vocalize words. Will defer to pulmonary about capping trials. 04/28: Continues to show some improvement. We will continue current management and diuresis as needed. Continue capping trial. Will check labs in a.m. Plan of care discussed with the patient and case management 04/29: Patient seen and examined resting comfortably labs are intact still anemic but stable. Continue current management we will run a trial of diuresis x3. 04/30: Continue supportive care. Wean as tolerated. PMV valve has been ordered for his trach size. 05/01: I obtained x-ray to further evaluate left knee shows DJD. We'll add some Ultram for pain control. Otherwise continue current management. Case aleta nichole awaiting [facility]. Assessment and Plan #Acute Hypoxic Respiratory Failure #COVID Pneumonia - Intubated on 03/10 due to worsen hypoxia on BIPAP - 03/29 s/p Tracheostomy - T-piece- 28% and 5L - Pulmonary on consult - Continue Nebs per CCM - Pulmonary hygiene - keep patient net negative for better lung compliance - Aspiration precaution HOB above 30 - Continue SPO2 monitoring for SPO2 goal above 92% #Sepsis #COVID Pneumonia #MSSA pneumonia -Infectious disease consulted, appreciate recommendations -S/p remdesivir for 5 days -S/p Actemra 03/10/2021 -f/u blood culture -Monitor WBC and temperature curve -s/p steroids -04/18 procal 0.19 -03/16 Fungitell and histoplasma negative -On high dose Cefazolin per ID #Acute Encephalopathy-improved - AAO, following commands - CT head/brain no acute Abn. - Repeat CT head and MRI brain noted - Avoid benzodiazepine to reduce the possibility of delirium - Prn analgesia for pain management - Maintenance of sleep-wake cycle - PT consulted, appreciate recommendations: PT recommends subacute rehab if patient does not qualify for LTAC #Hypertension - 03/09 Echocardiogram shows a mildly dilated ascending aorta, normal LV systolic function, mild concentric LVH, LVEF 60 to 65% - Continue current antihypertensive regimen - PRN Labetalol for SBP above 160 - Continue Blood pressure monitoring per protocol #Urinary retention - Good catheter removed 04/17 and replaced 04/21 - Continue Doxazosin BID - Strict intake and output - Avoid nephrotoxic medications; Renally dose medications - Monitor and replace electrolytes as needed - Trend BMP #Acute right upper extremity DVT - Bilateral lower extremity ultrasounds negative for DVT, superficial thrombus in left gastrocnemius vein - CTA chest shows no gross pulm embolism - bilateral upper extremity ultrasound shows DVT in right upper extremity - Continue PO Eliquis - SCDs to BLE while in bed - Transfuse hemoglobin less than 7 - Monitor for signs of bleeding #Anemia -Stable, continue supportive care #Endo:Type 2 DM - Continue high dose SSI Q6hrs - Lantus qHs - Avoid Hypoglycemia History Interval history: Patient seen and examined, resting comfortable, still trach Piece in place. No new complaints, Following commands, actually vocalizing, complains of left knee pain overnight not improving. Hospitalist Physical - Physical exam Narrative exam: General appearance: Present: no acute distress, well-nourished, obese, vocalizing through the trach - EENT Eyes: Present: PERRL, EOM intact ENT: hearing intact, clear oral mucosa, dentition normal - Neck Neck: Present: Trach collar, ROM - Respiratory Respiratory effort: normal Respiratory: bilateral: CTA, diminished - Cardiovascular Rhythm: regular Heart Sounds: Present: S1 & S2. Absent: systolic murmur, diastolic murmur - Extremities Extremities: no ischemia, pulses intact, pulses symmetrical, normal temperature Peripheral Pulses: within normal limits - Abdominal General gastrointestinal: soft, non-tender, non-distended, normal bowel sounds - Integumentary Integumentary: Present: warm, +1 edema, overall improving, left knee nontender on palpation. No crepitation felt. - Psychiatric Psychiatric: cooperative - Neurologic Neurologic: CNII-XII intact, no focal deficits, moves all extremities - Allied Health Allied health notes reviewed: nursing, PT, OT, RT, social work - Constitutional Vitals: Temp Pulse Resp BP Pulse Ox 97.6 F 86 25 H 135/84 99 05/01/21 12:00 05/01/21 14:00 05/01/21 14:00 05/01/21 14:00 05/01/21 14:00 General appearance: Present: no acute distress, well-nourished, obese Results - Labs CBC & Chem 7: 04/29/21 05:03 04/29/21 05:03 Labs: Laboratory Last Values WBC 7.0 K/mm3 (4.5-11.0) 04/29/21 05:03 RBC 3.15 M/mm3 (3.65-5.03) L 04/29/21 05:03 Hgb 9.8 gm/dl (11.8-15.2) L 04/29/21 05:03 Hct 29.1 % (35.5-45.6) L 04/29/21 05:03 MCV 92 fl (84-94) 04/29/21 05:03 MCH 31 pg (28-32) 04/29/21 05:03 MCHC 34 % (32-34) 04/29/21 05:03 RDW 17.6 % (13.2-15.2) H 04/29/21 05:03 Plt Count 347 K/mm3 (140-440) 04/29/21 05:03 Lymph % (Auto) 7.6 % (13.4-35.0) L 03/31/21 13:30 [place] % (Auto) 9.5 % (0.0-7.3) H 03/31/21 13:30 Eos % (Auto) 4.1 % (0.0-4.3) 03/31/21 13:30 Baso % (Auto) 0.5 % (0.0-1.8) 03/31/21 13:30 Lymph # (Auto) 0.6 K/mm3 (1.2-5.4) L 03/31/21 13:30 [place] # (Auto) 0.7 K/mm3 (0.0-0.8) 03/31/21 13:30 Eos # (Auto) 0.3 K/mm3 (0.0-0.4) 03/31/21 13:30 Baso # (Auto) 0.0 K/mm3 (0.0-0.1) 03/31/21 13:30 Add Manual Diff Complete 04/11/21 06:47 Total Counted 100 04/11/21 06:47 Seg Neutrophils % 78.3 % (40.0-70.0) H 03/31/21 13:30 Seg Neuts % (Manual) 76.0 % (40.0-70.0) H 04/11/21 06:47 Band Neutrophils % 2.0 % 04/11/21 06:47 Lymphocytes % (Manual) 10.0 % (13.4-35.0) L 04/11/21 06:47 Reactive Lymphs % (Man) 0 % 04/11/21 06:47 Monocytes % (Manual) 7.0 % (0.0-7.3) 04/11/21 06:47 Eosinophils % (Manual) 4.0 % (0.0-4.3) 04/11/21 06:47 Basophils % (Manual) 0 % (0.0-1.8) 04/11/21 06:47 Metamyelocytes % 1.0 % 04/11/21 06:47 Myelocytes % 0 % 04/11/21 06:47 Promyelocytes % 0 % 04/11/21 06:47 Blast Cells % 0 % 04/11/21 06:47 Nucleated RBC % Not Reportable 04/11/21 06:47 Seg Neutrophils # 5.8 K/mm3 (1.8-7.7) 03/31/21 13:30 Seg Neutrophils # Man 8.3 K/mm3 (1.8-7.7) H 04/11/21 06:47 Band Neutrophils # 0.2 K/mm3 04/11/21 06:47 Lymphocytes # (Manual) 1.1 K/mm3 (1.2-5.4) L 04/11/21 06:47 Abs React Lymphs (Man) 0.0 K/mm3 04/11/21 06:47 Monocytes # (Manual) 0.8 K/mm3 (0.0-0.8) 04/11/21 06:47 Eosinophils # (Manual) 0.4 K/mm3 (0.0-0.4) 04/11/21 06:47 Basophils # (Manual) 0.0 K/mm3 (0.0-0.1) 04/11/21 06:47 Metamyelocytes # 0.1 K/mm3 04/11/21 06:47 Myelocytes # 0.0 K/mm3 04/11/21 06:47 Promyelocytes # 0.0 K/mm3 04/11/21 06:47 Blast Cells # 0.0 K/mm3 04/11/21 06:47 WBC Morphology Not Reportable 04/11/21 06:47 Hypersegmented Neuts Not Reportable 04/11/21 06:47 Hyposegmented Neuts Not Reportable 04/11/21 06:47 Hypogranular Neuts Not Reportable 04/11/21 06:47 Smudge Cells Not Reportable 04/11/21 06:47 Toxic Granulation 1+ 04/11/21 06:47 Toxic Vacuolation Not Reportable 04/11/21 06:47 Dohle Bodies Not Reportable 04/11/21 06:47 Pelger-Huet Anomaly Not Reportable 04/11/21 06:47 Mely Rods Not Reportable 04/11/21 06:47 Platelet Estimate Consistent w auto 04/11/21 06:47 Clumped Platelets Not Reportable 04/11/21 06:47 Plt Clumps, EDTA Not Reportable 04/11/21 06:47 Large Platelets Not Reportable 04/11/21 06:47 Giant Platelets Not Reportable 04/11/21 06:47 Platelet Satelliting Not Reportable 04/11/21 06:47 Plt Morphology Comment Not Reportable 04/11/21 06:47 RBC Morphology Not Reportable 04/11/21 06:47 Dimorphic RBCs Not Reportable 04/11/21 06:47 Polychromasia Not Reportable 04/11/21 06:47 Hypochromasia Not Reportable 04/11/21 06:47 Poikilocytosis Not Reportable 04/11/21 06:47 Anisocytosis 1+ 04/11/21 06:47 Microcytosis Not Reportable 04/11/21 06:47 Macrocytosis Not Reportable 04/11/21 06:47 Spherocytes Not Reportable 04/11/21 06:47 Pappenheimer Bodies Not Reportable 04/11/21 06:47 Sickle Cells Not Reportable 04/11/21 06:47 Target Cells Not Reportable 04/11/21 06:47 Tear Drop Cells Not Reportable 04/11/21 06:47 Ovalocytes Not Reportable 04/11/21 06:47 Helmet Cells Not Reportable 04/11/21 06:47 [place] Bodies Not Reportable 04/11/21 06:47 [place] Rings Not Reportable 04/11/21 06:47 Shama Cells Not Reportable 04/11/21 06:47 Bite Cells Not Reportable 04/11/21 06:47 Crenated Cell Not Reportable 04/11/21 06:47 Elliptocytes Not Reportable 04/11/21 06:47 Acanthocytes (Spur) Not Reportable 04/11/21 06:47 Rouleaux Not Reportable 04/11/21 06:47 Hemoglobin C Crystals Not Reportable 04/11/21 06:47 Schistocytes Not Reportable 04/11/21 06:47 Malaria parasites Not Reportable 04/11/21 06:47 Shaheen Bodies Not Reportable 04/11/21 06:47 Hem Pathologist Commnt No 04/11/21 06:47 PT 13.4 Sec. (12.2-14.9) 04/11/21 18:17 INR 0.92 (0.87-1.13) 04/11/21 18:17 APTT 61.1 Sec. (24.2-36.6) H* 04/11/21 18:17 D-Dimer 1359.12 ng/mlDDU (0-234) H 03/17/21 04:40 Heparin Anti-Xa Level 1.03 U.I./ml (0.3-0.7) H 04/12/21 05:11 ABG pH 7.477 pH Units (7.350-7.450) H 04/30/21 17:50 POC ABG pCO2 43.0 mmHg (32.0-48.0) 04/21/21 11:37 ABG pCO2 39.7 mm Hg 04/30/21 17:50 POC ABG pO2 92.3 mmHg (83-108) 04/21/21 11:37 ABG pO2 87.0 mm Hg (80.0-90.0) 04/30/21 17:50 POC ABG HCO3 33.0 04/21/21 11:37 ABG HCO3 28.7 mmol/L (20.0-26.0) H 04/30/21 17:50 ABG O2 Saturation 97.2 % (95.0-99.0) 04/30/21 17:50 ABG O2 Content 15.5 (0.0-44) 04/30/21 17:50 POC ABG Base Excess 9.0 04/21/21 11:37 ABG Base Excess 4.9 mmol/L (-2.0-3.0) H 04/30/21 17:50 ABG Hemoglobin 11.5 gm/dl (14.0-18.0) L 04/30/21 17:50 ABG Oxyhemoglobin 97.8 (94-98) 04/21/21 11:37 ABG Carboxyhemoglobin 1.9 % (0.0-5.0) 04/30/21 17:50 ABG Methemoglobin 0.6 % (0.0-1.5) 04/30/21 17:50 ABG Sodium 134.2 mmol/L (136.0-145.0) L 03/12/21 21:54 ABG Potassium 4.9 mmol/L (3.40-4.50) H 03/12/21 21:54 ABG Chloride 99.0 mmol/L (98-107) 03/12/21 21:54 ABG Glucose 306 mg/dL (65-95) H 03/12/21 21:54 Oxyhemoglobin 94.8 % (95.0-99.0) L 04/30/21 17:50 Carboxyhemoglobin 0.1 (0.5-1.5) L 04/21/21 11:37 FiO2 28 % 04/30/21 17:50 FiO2 % 35.0 04/21/21 11:37 Sodium 136 mmol/L (137-145) L 04/29/21 05:03 Potassium 4.1 mmol/L (3.6-5.0) 04/29/21 05:03 Chloride 104.5 mmol/L (98-107) 04/29/21 05:03 Carbon Dioxide 25 mmol/L (22-30) 04/29/21 05:03 Anion Gap 11 mmol/L 04/29/21 05:03 BUN 8 mg/dL (9-20) L 04/29/21 05:03 Creatinine 0.3 mg/dL (0.8-1.3) L 04/29/21 05:03 Estimated GFR > 60 ml/min 04/29/21 05:03 BUN/Creatinine Ratio 27 % 04/29/21 05:03 Glucose 115 mg/dL (75-100) H 04/29/21 05:03 POC Glucose 122 mg/dL (70-105) H 05/01/21 13:54 Lactic Acid 1.90 mmol/L (0.7-2.0) 03/08/21 23:51 Calcium 9.1 mg/dL (8.4-10.2) 04/29/21 05:03 Phosphorus 3.70 mg/dL (2.5-4.5) 04/25/21 15:04 Magnesium 2.30 mg/dL (1.7-2.3) 04/25/21 15:04 Ferritin 976.4 ng/mL (30.0-300.0) H 03/15/21 04:00 Total Bilirubin 0.20 mg/dL (0.1-1.2) 03/12/21 08:03 AST 10 units/L (5-40) 03/12/21 08:03 ALT 16 units/L (7-56) 03/12/21 08:03 Alkaline Phosphatase 77 units/L (35-129) 03/12/21 08:03 Lactate Dehydrogenase 630 units/L (91-180) H 03/15/21 06:06 C-Reactive Protein 0.40 mg/dL (0.00-1.30) 03/17/21 04:40 NT-Pro-B Natriuret Pep 1053 pg/mL (0-900) H 03/08/21 20:24 Total Protein 6.0 g/dL (6.3-8.2) L 03/12/21 08:03 Albumin 2.9 g/dL (3.9-5) L 03/12/21 08:03 Albumin/Globulin Ratio 0.9 % 03/12/21 08:03 Triglycerides 305 mg/dL (2-149) H 03/22/21 07:26 Procalcitonin 0.19 ng/mL (<0.15) 04/18/21 04:20 Arterial Blood Glucose 306 mg/dL (65-95) H 03/12/21 21:54 Arterial Blood Ionized Calcium 5.0 mg/dL (4.6-5.3) 03/12/21 21:54 Urine Color Yellow (Yellow) 04/14/21 Unknown Urine Turbidity Clear (Clear) 04/14/21 Unknown Urine pH 8.0 (5.0-7.0) H 04/14/21 Unknown Ur Specific [place] 1.009 (1.003-1.030) 04/14/21 Unknown Urine Protein <15 mg/dl mg/dL (Negative) 04/14/21 Unknown Urine Glucose (UA) Neg mg/dL (Negative) 04/14/21 Unknown Urine Ketones Neg mg/dL (Negative) 04/14/21 Unknown Urine Blood Neg (Negative) 04/14/21 Unknown Urine Nitrite Neg (Negative) 04/14/21 Unknown Urine Bilirubin Neg (Negative) 04/14/21 Unknown Urine Urobilinogen 2.0 mg/dL (<2.0) 04/14/21 Unknown Ur Leukocyte Esterase Neg (Negative) 04/14/21 Unknown Urine WBC (Auto) < 1.0 /HPF (0.0-6.0) 04/14/21 Unknown Urine RBC (Auto) < 1.0 /HPF (0.0-6.0) 04/14/21 Unknown Urine Bacteria (Auto) 1+ /HPF (Negative) 03/09/21 04:10 Urine Mucus Few /HPF 03/09/21 04:10 Vancomycin Trough 16.8 ug/mL (5.0-20.0) 04/16/21 14:30 Coronavirus (PCR) Negative (Negative) 04/27/21 08:00 Miscellaneous Test Flexitest 1 03/16/21 13:14 Good/IV: Voiding Method Indwelling Catheter Active Medications - Current Medications Current Medications: Generic Name Dose Route Start Last Admin Trade Name Freq PRN Reason Stop Dose Admin Acetaminophen 650 mg 03/09/21 01:26 04/29/21 02:06 Acetaminophen 325 Mg Tab PO 650 mg Q4H PRN Administration Pain MILD(1-3)/Fever >100.5/RAYO Albuterol 2.5 mg 03/09/21 01:26 03/18/21 21:06 Albuterol 2.5 Mg/3 Ml Nebu IH 2.5 mg Q4HRT PRN Administration Shortness Of Breath Amlodipine Besylate 10 mg 04/27/21 10:00 05/01/21 10:08 Amlodipine 10 Mg Tab FEEDTUBE 10 mg DAILY BLANCA Administration Apixaban 5 mg 04/26/21 22:00 05/01/21 10:08 Apixaban 5 Mg Tab FEEDTUBE 5 mg Q12HR BLANCA Administration Protocol Arformoterol Tartrate 15 mcg 03/11/21 20:00 05/01/21 07:36 Arformoterol 15 Mcg/2 Ml Nebu IH 15 mcg Q12HRT BLANCA Administration Dextrose 0 ml 03/20/21 10:52 Dextrose 10% *Hypoglycemia IV PRN PRN Hypoglycemia Docusate Sodium 100 mg 04/26/21 22:00 05/01/21 10:08 Docusate Sodium 100 Mg/10 Ml Oral Liqd FEEDTUBE 100 mg BID BLANCA Administration Doxazosin Mesylate 1 mg 04/26/21 10:00 05/01/21 10:08 Doxazosin 1 Mg Tab FEEDTUBE 1 mg BID BLANCA Administration Famotidine 20 mg 03/12/21 22:00 05/01/21 10:08 Famotidine 20 Mg Tab FEEDTUBE 20 mg BID BLANCA Administration Glycopyrrolate 2 mg 04/22/21 23:42 05/01/21 13:49 Glycopyrrolate 2 Mg Tab PO 2 mg TID BLANCA Administration Hydralazine HCl 50 mg 04/26/21 14:00 05/01/21 13:49 Hydralazine 25 Mg Tab FEEDTUBE 50 mg Q8HR BLANCA Administration Cefazolin Sodium 3 gm/ Sodium 100 mls @ 100 mls/30 min 04/20/21 14:00 05/01/21 13:49 Chloride IV 05/04/21 06:29 100 mls/30 min Q8HR BLANCA Administration Protocol Insulin Glargine 18 units 04/07/21 22:00 04/30/21 21:39 Insulin Glargine 100 Units/Ml SUB-Q 18 units QHS [facility] Administration Insulin Human Lispro 0 unit 03/11/21 18:00 05/01/21 13:55 Insulin Lispro 100 Unit/Ml SUB-Q Not Given Q6HR [facility] Protocol Lactulose 20 gm 04/30/21 12:30 04/30/21 15:04 Lactulose 20 Gm/30 Ml Oral Liqd FEEDTUBE 20 gm Q6H PRN Administration Constipation Metoprolol Tartrate 12.5 mg 04/26/21 22:00 05/01/21 10:08 Metoprolol Tartrate 25 Mg Tab FEEDTUBE 12.5 mg BID BLANCA Administration Ondansetron HCl 4 mg 03/09/21 01:26 04/28/21 00:23 Ondansetron 4 Mg/2 Ml Inj IV 4 mg Q8H PRN Administration Nausea And Vomiting Oxycodone HCl 5 mg 04/26/21 10:00 05/01/21 10:31 Oxycodone 5 Mg Tab FEEDTUBE 5 mg Q6HR PRN Administration Pain, Moderate (4-6) Phenyleph/Shark Oil/Min Oil/Petrol 1 applic 03/22/21 17:35 04/06/21 04:04 Pe/Mo/Pet,Wh 10 Applic/28 Gm Tube ID 1 applic Q6HR PRN Administration Hemorrhoids Scopolamine 1 each 04/19/21 13:00 05/01/21 10:08 Scopolamine Transdermal Patch 72 Hr TD 1 each Q3D BLANCA Administration Sodium Chloride 10 ml 03/09/21 10:00 05/01/21 10:09 Sodium Chloride 0.9% 10 Ml Flush Syringe IV 10 ml BID BLANCA Administration Sodium Chloride 10 ml 03/09/21 01:26 04/10/21 21:07 Sodium Chloride 0.9% 10 Ml Flush Syringe IV 10 ml PRN PRN Administration LINE FLUSH Nutrition/Malnutrition Assess - Dietary Evaluation Nutrition/Malnutrition Findings: Nutrition Notes Start: 03/09/21 08:49 Freq: Status: Active Protocol: Document 04/28/21 18:05 BRYANNA (Rec: 04/28/21 18:17 BRYANNA [id number]) Nutrition Notes Initial or Follow up Reassessment Current Diagnosis Diabetes,Sepsis,Hypertension, Respiratory Failure Other Pertinent Diagnosis COVID-19, Bilateral Pneumonia DVT of RUE.. Current Diet TF-Glucerna 1.2 Tyson @ 70 ml/hr (since D 04/08). Labs/Tests 04/28: N/A. Pertinent Medications 04/28: Nutritionally unremarkable. Height 5 ft 11 in Weight 118.6 kg [place] Body Weight (kg) 78.18 BMI 36.4 Weight change and time frame 3.8 Kg body weight loss in 1 week reported. Weight Status Obese Subjective/Other Information RD consult for routine F/U on TF tolerance. TF continues as prescribed and well tolerated, according to RN and ADL notes. Percent of energy/protein needs met: Prescribed TF-Glucerna 1.2 Tyson @ 70 ml/hr provides for energy/protein needs (2,016 Kcal/101 g) during LOS, 82% Kcal; 78% AA. Burn Absent Trauma Absent GI Symptoms None Difficulty In Swallowing Food Allergy No Skin Integrity/Comment Unspecified Area of Concern. Current % PO Other Minimum of two criteria No #1 Nutrition Diagnosis Inadequate oral intake Diagnosis Progress(for reassessment Continues documentation) Is patient on ventilator? No Is Patient Ambulatory and/or Out of Bed No REE-([facility]-confined to bed) 9625.301 Calculation Used for Recommendations 70-80% energy needs Additional Notes Energy needs: 1340-0208 kcal/ day Pro needs 1.3g/kg adjBW: 130g/ day Fluid needs 1ml/kcal Nutrition Intervention Nutrition Support: Continue Glucerna 1.2 Tyson @ 70 ml/hr. Flush: 110 ml water Q 4 hr, or as per MD. Kcal 2,016 Protein (gm) 101 Carbohydrates (gm) 192 Fat (gm) 101 Fluid (mL) 1,352 Fiber (gm) 27 % RDI: 82% Kcal; 78% AA. Goal #1 Provide at least 75% of energy /protein needs through Enteral Feeding during LOS. Goal #2 Maintain body weight within +/ -3% of admission body weight during LOS. Follow-Up By: 05/05/21 Additional Comments Continue monitoring TF tolerance and BM.
--- NOTE | 2021-05-01 16:11 | Progress Note ---
Assessment and Plan Cultures: SARS CoV2 PCR: positive 03/08/2021 blood culture: no growth 03/10/2021 sputum culture: Usual respiratory marlyn 03/16/2021 blood culture: no growth 03/18/2021 sputum culture: Stenotrophomonas 03/31/2021 Blood culture: no growth 03/31/2021 tracheal aspirate: usual resp marlyn 04/14/2021 sputum culture: MSSA 04/14/2021 blood culture: No growth 04/14/2021 urine culture: No growth 04/15/2021 right middle lobe respiratory culture: MSSA A/P: 61-year-old male with diabetes, hypertension admitted to the hospital with complaints of shortness of breath and feeling weak for the last 1 week: #Sepsis secondary to bilateral pneumonia: secondary to COVID-19. Completed remdesivir, s/p Actemra, steroids. Completed abx for bacterial pneumonia, Stenotrophomonas. #MSSA pneumonia #Acute hypoxic respiratory failure: s/p trach and PEG. #DM #HTN #Acute DVT in RUE Recs: -continue higher dose cefazolin 3 g q8 hrs, may need a long course of abx (MSSA can cause severe pneumonia including necrotizing pneumonia). PLanned 14 days -monitor fever and WBC G. Joslyn Goins MD [facility] O: [phone] F: [phone] Subjective Date of service: 05/01/21 Principal diagnosis: COVID-19 infection; DM II; Bilateral pneumonia; Obesity; HTN Interval history: Afebrile, normal white count. Objective - Exam Narrative Exam: Physical exam deferred to reduce risk of transmission of COVID-19. Please refer to primary team's note. - Constitutional Vitals: Vital Signs Temp Pulse Resp BP Pulse Ox 97.6 F 86 25 H 135/84 99 05/01/21 12:00 05/01/21 14:00 05/01/21 14:00 05/01/21 14:00 05/01/21 14:00 Temperature -Last 24 Hours Temperature 97.6 F Temperature 97.8 F Temperature 97.6 F Temperature 98.5 F - Labs CBC & Chem 7: 04/29/21 05:03 04/29/21 05:03 Labs: Abnormal lab results 04/30/21 04/30/21 04/30/21 Range/Units 16:22 17:50 21:30 ABG pH 7.477 H (7.350-7.450) pH Units ABG HCO3 28.7 H (20.0-26.0) mmol/L ABG Base Excess 4.9 H (-2.0-3.0) mmol/L ABG Hemoglobin 11.5 L (14.0-18.0) gm/dl Oxyhemoglobin 94.8 L (95.0-99.0) % POC Glucose 136 H 114 H (70-105) mg/dL 05/01/21 05/01/21 05/01/21 Range/Units 00:11 05:27 13:54 ABG pH (7.350-7.450) pH Units ABG HCO3 (20.0-26.0) mmol/L ABG Base Excess (-2.0-3.0) mmol/L ABG Hemoglobin (14.0-18.0) gm/dl Oxyhemoglobin (95.0-99.0) % POC Glucose 130 H 111 H 122 H (70-105) mg/dL
--- NOTE | 2021-05-01 18:50 | Progress Note ---
Assessment and Plan 61-year-old male with past medical history of hypertension and diabetes was brought to the emergency room because of shortness of breath and hypoxia. Patient has been feeling ill for approximately a week. Patient was confused and paramedics were called. Patient's oxygen saturation levels were in the low 70s. 88-90% O2 sat on a NRB mask. Patient does state he has had some cough was unable to give much additional history on arrival. Denies nausea vomiting diarrhea. Patient has not had a COVID test atient hypoxic even on a nonrebreather at 88%. Patient placed on BiPAP and his gait has a better O2 sat and his alertness is improved as well. Patient with by lateral patchy infiltrates in all lobes consistent with COVID-pneumonia. COVID testing is ordered. Umanzor virus test came back positive. Patient given Rocephin ,azithromycin and low-dose Decadron since he is diabetic. Patient to be admitted to the hospital service. Patient also given REMDESIVIR. Later decadron switched to I/V solumedrol. Patients inflammatory markers, D dimer, ferritin CRP are elevated. patient started on anticoagulation. Patient intubated and placed on mechanical ventilation. Patient has tracheostomy, eventually weaned from the ventilator, Patient presently in IMCU. Patient Obese, Awake Patient is on T tube, FIO2 28%. O2 saturation running 100%. No acute respiratory distress. Patient afebrile. Patient has no leukocytosis. Blood pressure 134/80, Pulse 91, Respirations 20. ABGs 04/30/21 reported P.H 7.4, PCO2 40, PO2 87, HCO3 29, O2 saturation 97%, FIO2 28%. Chest xray done 04/17/21 reported Mild improvement in pulmonary opacities. Chest xray done 04/30/21 reported No adverse change. Minimal lung opacity suggesting atelectasis, edema, or infection remain present. Mild vascular congestive changes versus crowding given low lung volumes could additionally be considered I spent critical care time of 33 minutes, review the chart, examine the patient, review chest xray and lab results, talking to respiratory and nursing staff and work out plan of treatment in this critically ill Covid 19 positive patient. - Patient Problems (1) Acute respiratory failure Status: Acute Plan to address problem: Patient is on T tube, FIO2 28%. Brovanna aerosol treatments. Continue Apixaban Continue famotidine. (2) Diabetes Status: Acute Plan to address problem: Management as per primary care. (3) Hypertension Status: Acute Plan to address problem: Management as per primary care. (4) Coronavirus infection Status: Acute Plan to address problem: Patient was on I/V solumedrol, REMDESIVIR,Apixaban, ceftriaxone and zithromax. Management as per infectious disease specialists. Subjective Date of service: 05/01/21 Principal diagnosis: COVID-19 infection; DM II; Bilateral pneumonia; Obesity; HTN Interval history: 61-year-old male with past medical history of hypertension and diabetes was brought to the emergency room because of shortness of breath and hypoxia. Patient has been feeling ill for approximately a week. Patient was confused and paramedics were called. Patient's oxygen saturation levels were in the low 70s. 88-90% O2 sat on a NRB mask. Patient does state he has had some cough was unable to give much additional history on arrival. Denies nausea vomiting diarrhea. Patient has not had a COVID test Patient hypoxic even on a nonrebreather at 88%. Patient placed on BiPAP and his gait has a better O2 sat and his alertness is improved as well. Patient with by lateral patchy infiltrates in all lobes consistent with COVID-pneumonia. COVID testing is ordered. Umaznor virus test came back positive. Patient given Rocephin ,azithromycin and low-dose Decadron since he is diabetic. Patient to be admitted to the hospital service. Patient also given REMDESIVIR. Later decadron switched to I/V solumedrol. Patients inflammatory markers, D dimer, ferritin CRP are elevated. patient started on anticoagulation. Patient intubated and placed on mechanical ventilation. Patient has tracheostomy, eventually weaned from the ventilator, Patient presently in IMCU. Patient Obese, Awake Patient is on T tube, FIO2 28%. O2 saturation running 100%. No acute respiratory distress. Patient afebrile. Patient has no leukocytosis. Blood pressure 134/80, Pulse 91, Respirations 20. ABGs 04/30/21 reported P.H 7.4, PCO2 40, PO2 87, HCO3 29, O2 saturation 97%, FIO2 28%. Chest xray done 04/17/21 reported Mild improvement in pulmonary opacities. Chest xray done 04/30/21 reported No adverse change. Minimal lung opacity sugges ting atelectasis, edema, or infection remain present. Mild vascular congestive changes versus crowding given low lung volumes could additionally be considered Patient is on Apixaban, Brovanna aerosol treatments, Famotidine,Glycopyrrolate and Cefazolin Objective Vital Signs - 12hr 05/01/21 05/01/21 05/01/21 07:00 07:36 08:00 Temperature 97.8 F Pulse Rate 97 H 96 H Pulse Rate [ 101 H Bilateral Throughout] Pulse Rate [ 84 From Monitor] Respiratory 26 H 24 Rate Respiratory 30 H Rate [Bilateral Throughout] Blood Pressure 126/79 123/84 O2 Sat by Pulse 99 100 99 Oximetry O2 Sat by Pulse 100 Oximetry [ Assessment] 05/01/21 05/01/21 05/01/21 09:00 10:00 10:08 Temperature Pulse Rate 97 H 97 H 97 H Pulse Rate [ Bilateral Throughout] Pulse Rate [ From Monitor] Respiratory 22 22 Rate Respiratory Rate [Bilateral Throughout] Blood Pressure 127/83 119/77 118/77 O2 Sat by Pulse 98 99 Oximetry O2 Sat by Pulse Oximetry [ Assessment] 05/01/21 05/01/21 05/01/21 11:00 12:00 13:00 Temperature 97.6 F Pulse Rate 93 H 86 88 Pulse Rate [ Bilateral Throughout] Pulse Rate [ 86 From Monitor] Respiratory 25 H 23 22 Rate Respiratory Rate [Bilateral Throughout] Blood Pressure 129/76 129/74 118/76 O2 Sat by Pulse 98 97 99 Oximetry O2 Sat by Pulse Oximetry [ Assessment] 05/01/21 05/01/21 05/01/21 13:49 14:00 15:00 Temperature Pulse Rate 84 86 89 Pulse Rate [ Bilateral Throughout] Pulse Rate [ From Monitor] Respiratory 25 H 23 Rate Respiratory Rate [Bilateral Throughout] Blood Pressure 118/76 135/84 134/77 O2 Sat by Pulse 99 100 Oximetry O2 Sat by Pulse Oximetry [ Assessment] 05/01/21 05/01/21 05/01/21 16:00 16:30 17:00 Temperature 97.7 F Pulse Rate 94 H 94 H Pulse Rate [ Bilateral Throughout] Pulse Rate [ 82 From Monitor] Respiratory 20 27 H Rate Respiratory Rate [Bilateral Throughout] Blood Pressure 129/78 133/77 O2 Sat by Pulse 99 99 Oximetry O2 Sat by Pulse 99 Oximetry [ Assessment] 05/01/21 18:00 Temperature Pulse Rate 92 H Pulse Rate [ Bilateral Throughout] Pulse Rate [ From Monitor] Respiratory 26 H Rate Respiratory Rate [Bilateral Throughout] Blood Pressure 124/79 O2 Sat by Pulse 99 Oximetry O2 Sat by Pulse Oximetry [ Assessment] Constitutional: no acute distress, alert, other (elderly obese male with mildly increased respiratory effort at rest) Eyes: non-icteric ENT: oropharynx moist, other (+ midline tracheostomy) Neck: supple, no lymphadenopathy, lymphadenopathy, no JVD, other (large circu mference) Effort: mildly labored Ascultation: Bilateral: diminished breath sounds, rales, rhonchi Percussion: Bilateral: not dull Cardiovascular: regular rate and rhythm, other (tachycardia, S1,S2) Gastrointestinal: normoactive bowel sounds, soft, non-tender, non-distended ( protuberant) Integumentary: normal Extremities: no cyanosis, pulses normal, no ischemia or petechiae, edema (upper extremities), other Neurologic: non-focal exam (grossly), pupils equal and round, CN II-XII normal, other (follows simple prompts) Psychiatric: mood appropriate, affect normal CBC and BMP: 05/02/21 08:50 05/02/21 06:36 ABG, PT/INR, D-dimer: ABG ABG pH 7.477 pH Units (7.350-7.450) H 04/30/21 17:50 POC ABG pCO2 43.0 mmHg (32.0-48.0) 04/21/21 11:37 ABG pCO2 39.7 mm Hg 04/30/21 17:50 POC ABG pO2 92.3 mmHg (83-108) 04/21/21 11:37 ABG pO2 87.0 mm Hg (80.0-90.0) 04/30/21 17:50 POC ABG HCO3 33.0 04/21/21 11:37 ABG O2 Saturation 97.2 % (95.0-99.0) 04/30/21 17:50 PT/INR, D-dimer PT 13.4 Sec. (12.2-14.9) 04/11/21 18:17 INR 0.92 (0.87-1.13) 04/11/21 18:17 D-Dimer 1359.12 ng/mlDDU (0-234) H 03/17/21 04:40 Abnormal lab findings: Abnormal Labs 03/08/21 03/08/21 03/08/21 20:24 20:24 20:24 WBC 22.6 H RBC 5.44 H Hgb 15.7 H Hct 49.2 H MCV MCHC RDW Plt Count Lymph % (Auto) Mcintosh % (Auto) Lymph # (Auto) Mcintosh # (Auto) Seg Neutrophils % Seg Neuts % (Manual) 83.0 H Lymphocytes % (Manual) 9.0 L Monocytes % (Manual) 8.0 H Nucleated RBC % Seg Neutrophils # Seg Neutrophils # Man 18.8 H Lymphocytes # (Manual) Monocytes # (Manual) 1.8 H PT 16.1 H INR 1.17 H APTT D-Dimer > 99192 H Heparin Anti-Xa Level ABG pH POC ABG pCO2 POC ABG pO2 ABG pO2 ABG HCO3 ABG O2 Saturation ABG Base Excess ABG Hemoglobin ABG Oxyhemoglobin ABG Sodium ABG Potassium ABG Glucose Oxyhemoglobin Carboxyhemoglobin Sodium 136 L Potassium Chloride 93.9 L Carbon Dioxide BUN 29 H Creatinine Glucose 208 H POC Glucose Lactic Acid Calcium Phosphorus Magnesium Ferritin Lactate Dehydrogenase 624 H C-Reactive Protein 18.00 H NT-Pro-B Natriuret Pep 1053 H Total Protein Albumin Triglycerides Arterial Blood Glucose Urine pH Ur Specific [place] Coronavirus (PCR) 03/08/21 03/08/21 03/09/21 20:24 20:24 04:10 WBC RBC Hgb Hct MCV MCHC RDW Plt Count Lymph % (Auto) [place]osh % (Auto) Lymph # (Auto) Mcintosh # (Auto) Seg Neutrophils % Seg Neuts % (Manual) Lymphocytes % (Manual) Monocytes % (Manual) Nucleated RBC % Seg Neutrophils # Seg Neutrophils # Man Lymphocytes # (Manual) Monocytes # (Manual) PT INR APTT D-Dimer Heparin Anti-Xa Level ABG pH POC ABG pCO2 POC ABG pO2 ABG pO2 ABG HCO3 ABG O2 Saturation ABG Base Excess ABG Hemoglobin ABG Oxyhemoglobin ABG Sodium ABG Potassium ABG Glucose Oxyhemoglobin Carboxyhemoglobin Sodium Potassium Chloride Carbon Dioxide BUN Creatinine Glucose POC Glucose Lactic Acid 2.10 H* Calcium Phosphorus Magnesium Ferritin 877.5 H Lactate Dehydrogenase C-Reactive Protein NT-Pro-B Natriuret Pep Total Protein Albumin Triglycerides Arterial Blood Glucose Urine pH Ur Specific [place] 1.041 H Coronavirus (PCR) 01/03/09/21 03/09/21 07:46 08:00 13:01 WBC RBC Hgb Hct MCV MCHC RDW Plt Count Lymph % (Auto) [place] % (Auto) Lymph # (Auto) [place] # (Auto) Seg Neutrophils % Seg Neuts % (Manual) Lymphocytes % (Manual) Monocytes % (Manual) Nucleated RBC % Seg Neutrophils # Seg Neutrophils # Man Lymphocytes # (Manual) Monocytes # (Manual) PT INR APTT D-Dimer Heparin Anti-Xa Level ABG pH POC ABG pCO2 POC ABG pO2 ABG pO2 ABG HCO3 ABG O2 Saturation ABG Base Excess ABG Hemoglobin ABG Oxyhemoglobin ABG Sodium ABG Potassium ABG Glucose Oxyhemoglobin Carboxyhemoglobin Sodium Potassium Chloride Carbon Dioxide BUN Creatinine Glucose POC Glucose 191 H 182 H Lactic Acid Calcium Phosphorus Magnesium Ferritin Lactate Dehydrogenase C-Reactive Protein NT-Pro-B Natriuret Pep Total Protein Albumin Triglycerides Arterial Blood Glucose Urine pH Ur Specific [place] Coronavirus (PCR) Positive A 03/09/21 03/09/21 03/09/21 15:19 17:48 18:10 WBC RBC Hgb Hct MCV MCHC RDW Plt Count Lymph % (Auto) [place] % (Auto) Lymph # (Auto) [place] # (Auto) Seg Neutrophils % Seg Neuts % (Manual) Lymphocytes % (Manual) Monocytes % (Manual) Nucleated RBC % Seg Neutrophils # Seg Neutrophils # Man Lymphocytes # (Manual) Monocytes # (Manual) PT INR APTT D-Dimer Heparin Anti-Xa Level ABG pH POC ABG pCO2 POC ABG pO2 ABG pO2 47.3 L ABG HCO3 26.3 H ABG O2 Saturation 83.7 L ABG Base Excess ABG Hemoglobin ABG Oxyhemoglobin ABG Sodium ABG Potassium ABG Glucose Oxyhemoglobin 82.1 L Carboxyhemoglobin Sodium Potassium Chloride Carbon Dioxide BUN 29 H Creatinine Glucose 214 H POC Glucose 194 H Lactic Acid Calcium Phosphorus Magnesium Ferritin Lactate Dehydrogenase C-Reactive Protein NT-Pro-B Natriuret Pep Total Protein Albumin 3.4 L Triglycerides Arterial Blood Glucose Urine pH Ur Specific [place] Coronavirus (PCR) 03/09/21 03/10/21 03/10/21 20:40 04:29 04:29 WBC 20.6 H RBC 5.07 H Hgb Hct 46.2 H MCV MCHC RDW Plt Count Lymph % (Auto) [place] % (Auto) Lymph # (Auto) [place] # (Auto) Seg Neutrophils % Seg Neuts % (Manual) 94.0 H Lymphocytes % (Manual) 1.0 L Monocytes % (Manual) Nucleated RBC % 3.0 H Seg Neutrophils # Seg Neutrophils # Man 19.4 H Lymphocytes # (Manual) 0.2 L Monocytes # (Manual) 1.0 H PT INR APTT D-Dimer Heparin Anti-Xa Level ABG pH POC ABG pCO2 POC ABG pO2 ABG pO2 ABG HCO3 ABG O2 Saturation ABG Base Excess ABG Hemoglobin ABG Oxyhemoglobin ABG Sodium ABG Potassium ABG Glucose Oxyhemoglobin Carboxyhemoglobin Sodium Potassium Chloride Carbon Dioxide BUN 29 H Creatinine Glucose 188 H POC Glucose 176 H Lactic Acid Calcium Phosphorus Magnesium Ferritin Lactate Dehydrogenase C-Reactive Protein NT-Pro-B Natriuret Pep Total Protein Albumin 3.3 L Triglycerides Arterial Blood Glucose Urine pH Ur Specific [place] Coronavirus (PCR) 03/10/21 03/10/21 03/10/21 05:22 10:27 15:25 WBC RBC Hgb Hct MCV MCHC RDW Plt Count Lymph % (Auto) [place] % (Auto) Lymph # (Auto) [place] # (Auto) Seg Neutrophils % Seg Neuts % (Manual) Lymphocytes % (Manual) Monocytes % (Manual) Nucleated RBC % Seg Neutrophils # Seg Neutrophils # Man Lymphocytes # (Manual) Monocytes # (Manual) PT INR APTT D-Dimer Heparin Anti-Xa Level ABG pH 7.488 H 7.488 H POC ABG pCO2 POC ABG pO2 ABG pO2 47.7 L 50.5 L ABG HCO3 ABG O2 Saturation 86.2 L 87.9 L ABG Base Excess ABG Hemoglobin ABG Oxyhemoglobin ABG Sodium ABG Potassium ABG Glucose Oxyhemoglobin 84.6 L 86.2 L Carboxyhemoglobin Sodium Potassium Chloride Carbon Dioxide BUN Creatinine Glucose POC Glucose 155 H Lactic Acid Calcium Phosphorus Magnesium Ferritin Lactate Dehydrogenase C-Reactive Protein NT-Pro-B Natriuret Pep Total Protein Albumin Triglycerides Arterial Blood Glucose Urine pH Ur Specific [place] Coronavirus (PCR) 03/10/21 03/10/21 03/11/21 18:10 18:55 00:07 WBC RBC Hgb Hct MCV MCHC RDW Plt Count Lymph % (Auto) [place] % (Auto) Lymph # (Auto) [place] # (Auto) Seg Neutrophils % Seg Neuts % (Manual) Lymphocytes % (Manual) Monocytes % (Manual) Nucleated RBC % Seg Neutrophils # Seg Neutrophils # Man Lymphocytes # (Manual) Monocytes # (Manual) PT INR APTT D-Dimer Heparin Anti-Xa Level ABG pH 7.343 L POC ABG pCO2 POC ABG pO2 ABG pO2 60.4 L ABG HCO3 27.9 H ABG O2 Saturation 88.7 L ABG Base Excess ABG Hemoglobin ABG Oxyhemoglobin ABG Sodium ABG Potassium ABG Glucose Oxyhemoglobin 86.9 L Carboxyhemoglobin Sodium Potassium Chloride Carbon Dioxide BUN Creatinine Glucose POC Glucose 187 H 139 H Lactic Acid Calcium Phosphorus Magnesium Ferritin Lactate Dehydrogenase C-Reactive Protein NT-Pro-B Natriuret Pep Total Protein Albumin Triglycerides Arterial Blood Glucose Urine pH Ur Specific [place] Coronavirus (PCR) 03/11/21 03/11/21 03/11/21 02:09 04:28 08:06 WBC RBC Hgb Hct MCV MCHC RDW Plt Count Lymph % (Auto) [place] % (Auto) Lymph # (Auto) [place] # (Auto) Seg Neutrophils % Seg Neuts % (Manual) Lymphocytes % (Manual) Monocytes % (Manual) Nucleated RBC % Seg Neutrophils # Seg Neutrophils # Man Lymphocytes # (Manual) Monocytes # (Manual) PT INR APTT D-Dimer Heparin Anti-Xa Level ABG pH 7.277 L POC ABG pCO2 55.9 H POC ABG pO2 54.4 L ABG pO2 ABG HCO3 ABG O2 Saturation ABG Base Excess ABG Hemoglobin ABG Oxyhemoglobin 83.0 L ABG Sodium ABG Potassium 4.8 H ABG Glucose 180 H Oxyhemoglobin Carboxyhemoglobin Sodium Potassium Chloride Carbon Dioxide BUN 38 H Creatinine Glucose 249 H POC Glucose 278 H Lactic Acid Calcium Phosphorus Magnesium Ferritin Lactate Dehydrogenase C-Reactive Protein NT-Pro-B Natriuret Pep Total Protein Albumin 3.2 L Triglycerides Arterial Blood Glucose 180 H Urine pH Ur Specific [place] Coronavirus (PCR) 03/11/21 03/11/21 03/11/21 11:29 15:06 15:48 WBC RBC Hgb Hct MCV MCHC RDW Plt Count Lymph % (Auto) [place] % (Auto) Lymph # (Auto) [place] # (Auto) Seg Neutrophils % Seg Neuts % (Manual) Lymphocytes % (Manual) Monocytes % (Manual) Nucleated RBC % Seg Neutrophils # Seg Neutrophils # Man Lymphocytes # (Manual) Monocytes # (Manual) PT INR APTT D-Dimer Heparin Anti-Xa Level ABG pH 7.260 L POC ABG pCO2 POC ABG pO2 ABG pO2 53.5 L ABG HCO3 29.5 H ABG O2 Saturation 84.0 L ABG Base Excess ABG Hemoglobin ABG Oxyhemoglobin ABG Sodium ABG Potassium ABG Glucose Oxyhemoglobin 82.3 L Carboxyhemoglobin Sodium Potassium Chloride Carbon Dioxide BUN Creatinine Glucose POC Glucose 288 H 295 H Lactic Acid Calcium Phosphorus Magnesium Ferritin Lactate Dehydrogenase C-Reactive Protein NT-Pro-B Natriuret Pep Total Protein Albumin Triglycerides Arterial Blood Glucose Urine pH Ur Specific [place] Coronavirus (PCR) 03/12/21 03/12/21 03/12/21 00:01 05:24 08:03 WBC RBC Hgb Hct MCV MCHC RDW Plt Count Lymph % (Auto) [place] % (Auto) Lymph # (Auto) [place] # (Auto) Seg Neutrophils % Seg Neuts % (Manual) Lymphocytes % (Manual) Monocytes % (Manual) Nucleated RBC % Seg Neutrophils # Seg Neutrophils # Man Lymphocytes # (Manual) Monocytes # (Manual) PT INR APTT D-Dimer Heparin Anti-Xa Level ABG pH POC ABG pCO2 POC ABG pO2 ABG pO2 ABG HCO3 ABG O2 Saturation ABG Base Excess ABG Hemoglobin ABG Oxyhemoglobin ABG Sodium ABG Potassium ABG Glucose Oxyhemoglobin Carboxyhemoglobin Sodium 135 L Potassium Chloride Carbon Dioxide BUN 48 H Creatinine Glucose 358 H POC Glucose 304 H 310 H Lactic Acid Calcium Phosphorus Magnesium Ferritin Lactate Dehydrogenase C-Reactive Protein NT-Pro-B Natriuret Pep Total Protein 6.0 L Albumin 2.9 L Triglycerides Arterial Blood Glucose Urine pH Ur Specific [place] Coronavirus (PCR) 03/12/21 03/12/21 03/12/21 08:03 10:43 11:31 WBC 14.6 H RBC Hgb Hct MCV MCHC RDW Plt Count Lymph % (Auto) [place] % (Auto) Lymph # (Auto) [place] # (Auto) Seg Neutrophils % Seg Neuts % (Manual) Lymphocytes % (Manual) Monocytes % (Manual) Nucleated RBC % Seg Neutrophils # Seg Neutrophils # Man Lymphocytes # (Manual) Monocytes # (Manual) PT INR APTT D-Dimer Heparin Anti-Xa Level ABG pH 7.248 L POC ABG pCO2 POC ABG pO2 ABG pO2 73.7 L ABG HCO3 32.0 H ABG O2 Saturation 93.9 L ABG Base Excess ABG Hemoglobin ABG Oxyhemoglobin ABG Sodium ABG Potassium ABG Glucose Oxyhemoglobin 92.1 L Carboxyhemoglobin Sodium Potassium Chloride Carbon Dioxide BUN Creatinine Glucose POC Glucose 359 H Lactic Acid Calcium Phosphorus Magnesium Ferritin Lactate Dehydrogenase C-Reactive Protein NT-Pro-B Natriuret Pep Total Protein Albumin Triglycerides Arterial Blood Glucose Urine pH Ur Specific [place] Coronavirus (PCR) 03/12/21 03/12/21 03/13/21 17:20 21:54 00:02 WBC RBC Hgb Hct MCV MCHC RDW Plt Count Lymph % (Auto) [place] % (Auto) Lymph # (Auto) [place] # (Auto) Seg Neutrophils % Seg Neuts % (Manual) Lymphocytes % (Manual) Monocytes % (Manual) Nucleated RBC % Seg Neutrophils # Seg Neutrophils # Man Lymphocytes # (Manual) Monocytes # (Manual) PT INR APTT D-Dimer Heparin Anti-Xa Level ABG pH 7.238 L POC ABG pCO2 71.9 H POC ABG pO2 53.6 L ABG pO2 ABG HCO3 ABG O2 Saturation ABG Base Excess ABG Hemoglobin ABG Oxyhemoglobin 84.8 L ABG Sodium 134.2 L ABG Potassium 4.9 H ABG Glucose 306 H Oxyhemoglobin Carboxyhemoglobin Sodium Potassium Chloride Carbon Dioxide BUN Creatinine Glucose POC Glucose 374 H 308 H Lactic Acid Calcium Phosphorus Magnesium Ferritin Lactate Dehydrogenase C-Reactive Protein NT-Pro-B Natriuret Pep Total Protein Albumin Triglycerides Arterial Blood Glucose 306 H Urine pH Ur Specific [place] Coronavirus (PCR) 03/13/21 03/13/21 03/13/21 05:22 05:44 05:44 WBC 13.9 H RBC Hgb Hct MCV MCHC RDW Plt Count Lymph % (Auto) [place] % (Auto) Lymph # (Auto) [place] # (Auto) Seg Neutrophils % Seg Neuts % (Manual) Lymphocytes % (Manual) Monocytes % (Manual) Nucleated RBC % Seg Neutrophils # Seg Neutrophils # Man Lymphocytes # (Manual) Monocytes # (Manual) PT INR APTT D-Dimer 3567.97 H Heparin Anti-Xa Level ABG pH POC ABG pCO2 POC ABG pO2 ABG pO2 ABG HCO3 ABG O2 Saturation ABG Base Excess ABG Hemoglobin ABG Oxyhemoglobin ABG Sodium ABG Potassium ABG Glucose Oxyhemoglobin Carboxyhemoglobin Sodium Potassium Chloride Carbon Dioxide BUN Creatinine Glucose POC Glucose 316 H Lactic Acid Calcium Phosphorus Magnesium Ferritin Lactate Dehydrogenase C-Reactive Protein NT-Pro-B Natriuret Pep Total Protein Albumin Triglycerides Arterial Blood Glucose Urine pH Ur Specific [place] Coronavirus (PCR) 03/13/21 03/13/21 03/13/21 05:44 05:44 11:15 WBC RBC Hgb Hct MCV MCHC RDW Plt Count Lymph % (Auto) [place] % (Auto) Lymph # (Auto) [place] # (Auto) Seg Neutrophils % Seg Neuts % (Manual) Lymphocytes % (Manual) Monocytes % (Manual) Nucleated RBC % Seg Neutrophils # Seg Neutrophils # Man Lymphocytes # (Manual) Monocytes # (Manual) PT INR APTT D-Dimer Heparin Anti-Xa Level ABG pH 7.310 L POC ABG pCO2 POC ABG pO2 ABG pO2 52.3 L ABG HCO3 34.1 H ABG O2 Saturation 86.8 L ABG Base Excess 5.5 H ABG Hemoglobin 13.8 L ABG Oxyhemoglobin ABG Sodium ABG Potassium ABG Glucose Oxyhemoglobin 85.1 L Carboxyhemoglobin Sodium Potassium Chloride Carbon Dioxide BUN Creatinine Glucose POC Glucose Lactic Acid Calcium Phosphorus Magnesium Ferritin 858.7 H Lactate Dehydrogenase 348 H C-Reactive Protein 2.80 H NT-Pro-B Natriuret Pep Total Protein Albumin Triglycerides Arterial Blood Glucose Urine pH Ur Specific [place] Coronavirus (PCR) 03/13/21 03/13/21 03/13/21 11:21 15:47 19:23 WBC RBC Hgb Hct MCV MCHC RDW Plt Count Lymph % (Auto) [place] % (Auto) Lymph # (Auto) [place] # (Auto) Seg Neutrophils % Seg Neuts % (Manual) Lymphocytes % (Manual) Monocytes % (Manual) Nucleated RBC % Seg Neutrophils # Seg Neutrophils # Man Lymphocytes # (Manual) Monocytes # (Manual) PT INR APTT D-Dimer Heparin Anti-Xa Level ABG pH POC ABG pCO2 POC ABG pO2 ABG pO2 ABG HCO3 ABG O2 Saturation ABG Base Excess ABG Hemoglobin ABG Oxyhemoglobin ABG Sodium ABG Potassium ABG Glucose Oxyhemoglobin Carboxyhemoglobin Sodium 136 L Potassium 5.9 H Chloride Carbon Dioxide BUN 50 H Creatinine Glucose 397 H POC Glucose 322 H 317 H Lactic Acid Calcium Phosphorus Magnesium Ferritin Lactate Dehydrogenase C-Reactive Protein NT-Pro-B Natriuret Pep Total Protein Albumin Triglycerides Arterial Blood Glucose Urine pH Ur Specific [place] Coronavirus (PCR) 03/13/21 03/14/21 03/14/21 23:46 05:32 05:50 WBC 11.6 H RBC Hgb Hct MCV MCHC RDW Plt Count Lymph % (Auto) [place] % (Auto) Lymph # (Auto) [place] # (Auto) Seg Neutrophils % Seg Neuts % (Manual) Lymphocytes % (Manual) Monocytes % (Manual) Nucleated RBC % Seg Neutrophils # Seg Neutrophils # Man Lymphocytes # (Manual) Monocytes # (Manual) PT INR APTT D-Dimer Heparin Anti-Xa Level ABG pH POC ABG pCO2 POC ABG pO2 ABG pO2 ABG HCO3 ABG O2 Saturation ABG Base Excess ABG Hemoglobin ABG Oxyhemoglobin ABG Sodium ABG Potassium ABG Glucose Oxyhemoglobin Carboxyhemoglobin Sodium Potassium Chloride Carbon Dioxide BUN Creatinine Glucose POC Glucose 332 H 316 H Lactic Acid Calcium Phosphorus Magnesium Ferritin Lactate Dehydrogenase C-Reactive Protein NT-Pro-B Natriuret Pep Total Protein Albumin Triglycerides Arterial Blood Glucose Urine pH Ur Specific [place] Coronavirus (PCR) 03/14/21 03/14/21 03/14/21 05:50 11:33 16:53 WBC RBC Hgb Hct MCV MCHC RDW Plt Count Lymph % (Auto) [place] % (Auto) Lymph # (Auto) [place] # (Auto) Seg Neutrophils % Seg Neuts % (Manual) Lymphocytes % (Manual) Monocytes % (Manual) Nucleated RBC % Seg Neutrophils # Seg Neutrophils # Man Lymphocytes # (Manual) Monocytes # (Manual) PT INR APTT D-Dimer Heparin Anti-Xa Level ABG pH POC ABG pCO2 POC ABG pO2 ABG pO2 ABG HCO3 ABG O2 Saturation ABG Base Excess ABG Hemoglobin ABG Oxyhemoglobin ABG Sodium ABG Potassium ABG Glucose Oxyhemoglobin Carboxyhemoglobin Sodium Potassium 5.9 H Chloride Carbon Dioxide 31 H BUN 48 H Creatinine Glucose 380 H POC Glucose 315 H 235 H Lactic Acid Calcium Phosphorus Magnesium 3.40 H Ferritin Lactate Dehydrogenase C-Reactive Protein NT-Pro-B Natriuret Pep Total Protein Albumin Triglycerides Arterial Blood Glucose Urine pH Ur Specific [place] Coronavirus (PCR) 03/14/21 03/14/21 03/15/21 18:34 23:27 01:22 WBC RBC Hgb Hct 46.3 H MCV MCHC RDW Plt Count Lymph % (Auto) [place] % (Auto) Lymph # (Auto) [place] # (Auto) Seg Neutrophils % Seg Neuts % (Manual) Lymphocytes % (Manual) Monocytes % (Manual) Nucleated RBC % Seg Neutrophils # Seg Neutrophils # Man Lymphocytes # (Manual) Monocytes # (Manual) PT INR APTT D-Dimer Heparin Anti-Xa Level ABG pH POC ABG pCO2 POC ABG pO2 ABG pO2 ABG HCO3 ABG O2 Saturation ABG Base Excess ABG Hemoglobin ABG Oxyhemoglobin ABG Sodium ABG Potassium ABG Glucose Oxyhemoglobin Carboxyhemoglobin Sodium 146 H Potassium Chloride Carbon Dioxide 34 H BUN 49 H Creatinine Glucose 285 H POC Glucose 203 H Lactic Acid Calcium Phosphorus Magnesium Ferritin Lactate Dehydrogenase C-Reactive Protein NT-Pro-B Natriuret Pep Total Protein Albumin Triglycerides Arterial Blood Glucose Urine pH Ur Specific [place] Coronavirus (PCR) 03/15/21 03/15/21 03/15/21 04:00 06:06 06:06 WBC RBC Hgb Hct MCV MCHC RDW Plt Count Lymph % (Auto) [place] % (Auto) Lymph # (Auto) [place] # (Auto) Seg Neutrophils % Seg Neuts % (Manual) Lymphocytes % (Manual) Monocytes % (Manual) Nucleated RBC % Seg Neutrophils # Seg Neutrophils # Man Lymphocytes # (Manual) Monocytes # (Manual) PT INR APTT D-Dimer 1781.79 H Heparin Anti-Xa Level ABG pH POC ABG pCO2 POC ABG pO2 ABG pO2 ABG HCO3 ABG O2 Saturation ABG Base Excess ABG Hemoglobin ABG Oxyhemoglobin ABG Sodium ABG Potassium ABG Glucose Oxyhemoglobin Carboxyhemoglobin Sodium 148 H Potassium 5.7 H D Chloride 108.0 H Carbon Dioxide 31 H BUN 46 H Creatinine Glucose 139 H POC Glucose Lactic Acid Calcium Phosphorus 4.80 H D Magnesium 3.00 H Ferritin 976.4 H Lactate Dehydrogenase 630 H C-Reactive Protein NT-Pro-B Natriuret Pep Total Protein Albumin Triglycerides Arterial Blood Glucose Urine pH Ur Specific [place] Coronavirus (PCR) 03/15/21 03/15/21 03/15/21 11:56 14:05 17:09 WBC RBC Hgb Hct MCV MCHC RDW Plt Count Lymph % (Auto) [place] % (Auto) Lymph # (Auto) [place] # (Auto) Seg Neutrophils % Seg Neuts % (Manual) Lymphocytes % (Manual) Monocytes % (Manual) Nucleated RBC % Seg Neutrophils # Seg Neutrophils # Man Lymphocytes # (Manual) Monocytes # (Manual) PT INR APTT D-Dimer Heparin Anti-Xa Level ABG pH POC ABG pCO2 POC ABG pO2 ABG pO2 52.1 L ABG HCO3 36.6 H ABG O2 Saturation 87.6 L ABG Base Excess 9.5 H ABG Hemoglobin ABG Oxyhemoglobin ABG Sodium ABG Potassium ABG Glucose Oxyhemoglobin 85.7 L Carboxyhemoglobin Sodium Potassium Chloride Carbon Dioxide BUN Creatinine Glucose POC Glucose 219 H 263 H Lactic Acid Calcium Phosphorus Magnesium Ferritin Lactate Dehydrogenase C-Reactive Protein NT-Pro-B Natriuret Pep Total Protein Albumin Triglycerides Arterial Blood Glucose Urine pH Ur Specific [place] Coronavirus (PCR) 03/16/21 03/16/21 03/16/21 00:32 04:11 04:11 WBC 11.9 H RBC Hgb Hct MCV MCHC 30 L RDW Plt Count Lymph % (Auto) [place] % (Auto) Lymph # (Auto) [place] # (Auto) Seg Neutrophils % Seg Neuts % (Manual) Lymphocytes % (Manual) Monocytes % (Manual) Nucleated RBC % Seg Neutrophils # Seg Neutrophils # Man Lymphocytes # (Manual) Monocytes # (Manual) PT INR APTT D-Dimer Heparin Anti-Xa Level ABG pH POC ABG pCO2 POC ABG pO2 ABG pO2 ABG HCO3 ABG O2 Saturation ABG Base Excess ABG Hemoglobin ABG Oxyhemoglobin ABG Sodium ABG Potassium ABG Glucose Oxyhemoglobin Carboxyhemoglobin Sodium 151 H Potassium Chloride Carbon Dioxide 35 H BUN 48 H Creatinine Glucose 152 H POC Glucose 165 H Lactic Acid Calcium Phosphorus Magnesium Ferritin Lactate Dehydrogenase C-Reactive Protein NT-Pro-B Natriuret Pep Total Protein Albumin Triglycerides Arterial Blood Glucose Urine pH Ur Specific [place] Coronavirus (PCR) 03/16/21 03/16/21 03/16/21 04:11 05:26 11:35 WBC RBC Hgb Hct MCV MCHC RDW Plt Count Lymph % (Auto) [place] % (Auto) Lymph # (Auto) [place] # (Auto) Seg Neutrophils % Seg Neuts % (Manual) Lymphocytes % (Manual) Monocytes % (Manual) Nucleated RBC % Seg Neutrophils # Seg Neutrophils # Man Lymphocytes # (Manual) Monocytes # (Manual) PT INR APTT D-Dimer Heparin Anti-Xa Level ABG pH POC ABG pCO2 POC ABG pO2 ABG pO2 ABG HCO3 ABG O2 Saturation ABG Base Excess ABG Hemoglobin ABG Oxyhemoglobin ABG Sodium ABG Potassium ABG Glucose Oxyhemoglobin Carboxyhemoglobin Sodium Potassium Chloride Carbon Dioxide BUN Creatinine Glucose POC Glucose 162 H 187 H Lactic Acid Calcium Phosphorus Magnesium Ferritin Lactate Dehydrogenase C-Reactive Protein NT-Pro-B Natriuret Pep Total Protein Albumin Triglycerides 267 H Arterial Blood Glucose Urine pH Ur Specific [place] Coronavirus (PCR) 03/16/21 03/16/21 03/16/21 17:29 22:25 23:22 WBC RBC Hgb Hct MCV MCHC RDW Plt Count Lymph % (Auto) [place] % (Auto) Lymph # (Auto) [place] # (Auto) Seg Neutrophils % Seg Neuts % (Manual) Lymphocytes % (Manual) Monocytes % (Manual) Nucleated RBC % Seg Neutrophils # Seg Neutrophils # Man Lymphocytes # (Manual) Monocytes # (Manual) PT INR APTT D-Dimer Heparin Anti-Xa Level ABG pH POC ABG pCO2 POC ABG pO2 ABG pO2 ABG HCO3 ABG O2 Saturation ABG Base Excess ABG Hemoglobin ABG Oxyhemoglobin ABG Sodium ABG Potassium ABG Glucose Oxyhemoglobin Carboxyhemoglobin Sodium Potassium Chloride Carbon Dioxide BUN Creatinine Glucose POC Glucose 237 H 165 H 189 H Lactic Acid Calcium Phosphorus Magnesium Ferritin Lactate Dehydrogenase C-Reactive Protein NT-Pro-B Natriuret Pep Total Protein Albumin Triglycerides Arterial Blood Glucose Urine pH Ur Specific [place] Coronavirus (PCR) 03/17/21 03/17/21 03/17/21 04:40 04:40 04:40 WBC 14.1 H RBC Hgb Hct MCV MCHC RDW 15.3 H Plt Count Lymph % (Auto) 12.6 L [place] % (Auto) 11.3 H Lymph # (Auto) [place] # (Auto) 1.6 H Seg Neutrophils % 74.9 H Seg Neuts % (Manual) Lymphocytes % (Manual) Monocytes % (Manual) Nucleated RBC % Seg Neutrophils # 10.5 H Seg Neutrophils # Man Lymphocytes # (Manual) Monocytes # (Manual) PT INR APTT D-Dimer 1359.12 H Heparin Anti-Xa Level ABG pH POC ABG pCO2 POC ABG pO2 ABG pO2 ABG HCO3 ABG O2 Saturation ABG Base Excess ABG Hemoglobin ABG Oxyhemoglobin ABG Sodium ABG Potassium ABG Glucose Oxyhemoglobin Carboxyhemoglobin Sodium 148 H Potassium Chloride 107.5 H Carbon Dioxide 33 H BUN 42 H Creatinine Glucose 183 H POC Glucose Lactic Acid Calcium Phosphorus Magnesium 2.70 H Ferritin Lactate Dehydrogenase C-Reactive Protein NT-Pro-B Natriuret Pep Total Protein Albumin Triglycerides Arterial Blood Glucose Urine pH Ur Specific [place] Coronavirus (PCR) 0103/17/21 03/17/21 05:53 11:05 11:51 WBC RBC Hgb Hct MCV MCHC RDW Plt Count Lymph % (Auto) [place] % (Auto) Lymph # (Auto) [place] # (Auto) Seg Neutrophils % Seg Neuts % (Manual) Lymphocytes % (Manual) Monocytes % (Manual) Nucleated RBC % Seg Neutrophils # Seg Neutrophils # Man Lymphocytes # (Manual) Monocytes # (Manual) PT INR APTT D-Dimer Heparin Anti-Xa Level ABG pH POC ABG pCO2 POC ABG pO2 ABG pO2 ABG HCO3 35.7 H ABG O2 Saturation ABG Base Excess 8.7 H ABG Hemoglobin ABG Oxyhemoglobin ABG Sodium ABG Potassium ABG Glucose Oxyhemoglobin 94.2 L Carboxyhemoglobin Sodium Potassium Chloride Carbon Dioxide BUN Creatinine Glucose POC Glucose 176 H 197 H Lactic Acid Calcium Phosphorus Magnesium Ferritin Lactate Dehydrogenase C-Reactive Protein NT-Pro-B Natriuret Pep Total Protein Albumin Triglycerides Arterial Blood Glucose Urine pH Ur Specific [place] Coronavirus (PCR) 03/17/21 03/17/21 03/17/21 16:54 21:10 23:33 WBC RBC Hgb Hct MCV MCHC RDW Plt Count Lymph % (Auto) [place] % (Auto) Lymph # (Auto) [place] # (Auto) Seg Neutrophils % Seg Neuts % (Manual) Lymphocytes % (Manual) Monocytes % (Manual) Nucleated RBC % Seg Neutrophils # Seg Neutrophils # Man Lymphocytes # (Manual) Monocytes # (Manual) PT INR APTT D-Dimer Heparin Anti-Xa Level ABG pH POC ABG pCO2 POC ABG pO2 ABG pO2 ABG HCO3 ABG O2 Saturation ABG Base Excess ABG Hemoglobin ABG Oxyhemoglobin ABG Sodium ABG Potassium ABG Glucose Oxyhemoglobin Carboxyhemoglobin Sodium Potassium Chloride Carbon Dioxide BUN Creatinine Glucose POC Glucose 135 H 160 H 138 H Lactic Acid Calcium Phosphorus Magnesium Ferritin Lactate Dehydrogenase C-Reactive Protein NT-Pro-B Natriuret Pep Total Protein Albumin Triglycerides Arterial Blood Glucose Urine pH Ur Specific [place] Coronavirus (PCR) 03/18/21 03/18/21 03/18/21 04:18 04:50 05:43 WBC RBC Hgb Hct MCV MCHC RDW Plt Count Lymph % (Auto) [place] % (Auto) Lymph # (Auto) [place] # (Auto) Seg Neutrophils % Seg Neuts % (Manual) Lymphocytes % (Manual) Monocytes % (Manual) Nucleated RBC % Seg Neutrophils # Seg Neutrophils # Man Lymphocytes # (Manual) Monocytes # (Manual) PT INR APTT D-Dimer Heparin Anti-Xa Level ABG pH POC ABG pCO2 POC ABG pO2 ABG pO2 59.8 L ABG HCO3 36.5 H ABG O2 Saturation 90.7 L ABG Base Excess 9.4 H ABG Hemoglobin 12.0 L ABG Oxyhemoglobin ABG Sodium ABG Potassium ABG Glucose Oxyhemoglobin 88.9 L Carboxyhemoglobin Sodium Potassium Chloride 107.2 H Carbon Dioxide 34 H BUN 38 H Creatinine 0.7 L Glucose 136 H POC Glucose 128 H Lactic Acid Calcium Phosphorus Magnesium Ferritin Lactate Dehydrogenase C-Reactive Protein NT-Pro-B Natriuret Pep Total Protein Albumin Triglycerides Arterial Blood Glucose Urine pH Ur Specific [place] Coronavirus (PCR) 03/18/21 03/18/21 03/18/21 11:20 17:35 23:35 WBC RBC Hgb Hct MCV MCHC RDW Plt Count Lymph % (Auto) [place] % (Auto) Lymph # (Auto) [place] # (Auto) Seg Neutrophils % Seg Neuts % (Manual) Lymphocytes % (Manual) Monocytes % (Manual) Nucleated RBC % Seg Neutrophils # Seg Neutrophils # Man Lymphocytes # (Manual) Monocytes # (Manual) PT INR APTT D-Dimer Heparin Anti-Xa Level ABG pH POC ABG pCO2 POC ABG pO2 ABG pO2 70.7 L ABG HCO3 33.6 H ABG O2 Saturation ABG Base Excess 8.0 H ABG Hemoglobin ABG Oxyhemoglobin ABG Sodium ABG Potassium ABG Glucose Oxyhemoglobin 93.7 L Carboxyhemoglobin Sodium Potassium Chloride Carbon Dioxide BUN Creatinine Glucose POC Glucose 189 H 144 H Lactic Acid Calcium Phosphorus Magnesium Ferritin Lactate Dehydrogenase C-Reactive Protein NT-Pro-B Natriuret Pep Total Protein Albumin Triglycerides Arterial Blood Glucose Urine pH Ur Specific [place] Coronavirus (PCR) 03/19/21 03/19/21 03/19/21 02:35 04:20 04:20 WBC 14.0 H RBC Hgb Hct MCV MCHC RDW Plt Count Lymph % (Auto) [place] % (Auto) Lymph # (Auto) [place] # (Auto) Seg Neutrophils % Seg Neuts % (Manual) Lymphocytes % (Manual) Monocytes % (Manual) Nucleated RBC % Seg Neutrophils # Seg Neutrophils # Man Lymphocytes # (Manual) Monocytes # (Manual) PT INR APTT D-Dimer Heparin Anti-Xa Level ABG pH POC ABG pCO2 POC ABG pO2 ABG pO2 ABG HCO3 32.0 H ABG O2 Saturation ABG Base Excess 5.2 H ABG Hemoglobin 13.6 L ABG Oxyhemoglobin ABG Sodium ABG Potassium ABG Glucose Oxyhemoglobin 94.6 L Carboxyhemoglobin Sodium 146 H Potassium Chloride 109.3 H Carbon Dioxide BUN 36 H Creatinine Glucose 203 H POC Glucose Lactic Acid Calcium Phosphorus Magnesium Ferritin Lactate Dehydrogenase C-Reactive Protein NT-Pro-B Natriuret Pep Total Protein Albumin Triglycerides 254 H Arterial Blood Glucose Urine pH Ur Specific [place] Coronavirus (PCR) 03/19/21 03/19/21 03/19/21 05:45 11:36 23:51 WBC RBC Hgb Hct MCV MCHC RDW Plt Count Lymph % (Auto) [place] % (Auto) Lymph # (Auto) [place] # (Auto) Seg Neutrophils % Seg Neuts % (Manual) Lymphocytes % (Manual) Monocytes % (Manual) Nucleated RBC % Seg Neutrophils # Seg Neutrophils # Man Lymphocytes # (Manual) Monocytes # (Manual) PT INR APTT D-Dimer Heparin Anti-Xa Level ABG pH POC ABG pCO2 POC ABG pO2 ABG pO2 ABG HCO3 ABG O2 Saturation ABG Base Excess ABG Hemoglobin ABG Oxyhemoglobin ABG Sodium ABG Potassium ABG Glucose Oxyhemoglobin Carboxyhemoglobin Sodium Potassium Chloride Carbon Dioxide BUN Creatinine Glucose POC Glucose 164 H 172 H 140 H Lactic Acid Calcium Phosphorus Magnesium Ferritin Lactate Dehydrogenase C-Reactive Protein NT-Pro-B Natriuret Pep Total Protein Albumin Triglycerides Arterial Blood Glucose Urine pH Ur Specific [place] Coronavirus (PCR) 03/20/21 03/20/21 03/20/21 03:29 04:45 04:45 WBC RBC Hgb Hct MCV 95 H MCHC RDW 15.7 H Plt Count Lymph % (Auto) [place] % (Auto) Lymph # (Auto) [place] # (Auto) Seg Neutrophils % Seg Neuts % (Manual) Lymphocytes % (Manual) Monocytes % (Manual) Nucleated RBC % Seg Neutrophils # Seg Neutrophils # Man Lymphocytes # (Manual) Monocytes # (Manual) PT INR APTT D-Dimer Heparin Anti-Xa Level ABG pH 7.349 L POC ABG pCO2 POC ABG pO2 ABG pO2 ABG HCO3 33.7 H ABG O2 Saturation ABG Base Excess 6.4 H ABG Hemoglobin 11.8 L ABG Oxyhemoglobin ABG Sodium ABG Potassium ABG Glucose Oxyhemoglobin 93.9 L Carboxyhemoglobin Sodium 146 H Potassium 5.5 H Chloride 111.1 H Carbon Dioxide BUN 34 H Creatinine 0.7 L Glucose 145 H POC Glucose Lactic Acid Calcium Phosphorus Magnesium 2.50 H Ferritin Lactate Dehydrogenase C-Reactive Protein NT-Pro-B Natriuret Pep Total Protein Albumin Triglycerides Arterial Blood Glucose Urine pH Ur Specific [place] Coronavirus (PCR) 03/20/21 03/20/21 03/20/21 05:41 09:08 11:54 WBC RBC Hgb Hct MCV MCHC RDW Plt Count Lymph % (Auto) [place] % (Auto) Lymph # (Auto) [place] # (Auto) Seg Neutrophils % Seg Neuts % (Manual) Lymphocytes % (Manual) Monocytes % (Manual) Nucleated RBC % Seg Neutrophils # Seg Neutrophils # Man Lymphocytes # (Manual) Monocytes # (Manual) PT INR APTT D-Dimer Heparin Anti-Xa Level ABG pH POC ABG pCO2 POC ABG pO2 ABG pO2 ABG HCO3 ABG O2 Saturation ABG Base Excess ABG Hemoglobin ABG Oxyhemoglobin ABG Sodium ABG Potassium ABG Glucose Oxyhemoglobin Carboxyhemoglobin Sodium Potassium Chloride Carbon Dioxide BUN Creatinine Glucose POC Glucose 108 H 132 H 162 H Lactic Acid Calcium Phosphorus Magnesium Ferritin Lactate Dehydrogenase C-Reactive Protein NT-Pro-B Natriuret Pep Total Protein Albumin Triglycerides Arterial Blood Glucose Urine pH Ur Specific [place] Coronavirus (PCR) 03/20/21 03/21/21 03/21/21 17:28 00:31 04:44 WBC RBC Hgb Hct MCV MCHC RDW Plt Count Lymph % (Auto) [place] % (Auto) Lymph # (Auto) [place] # (Auto) Seg Neutrophils % Seg Neuts % (Manual) Lymphocytes % (Manual) Monocytes % (Manual) Nucleated RBC % Seg Neutrophils # Seg Neutrophils # Man Lymphocytes # (Manual) Monocytes # (Manual) PT INR APTT D-Dimer Heparin Anti-Xa Level ABG pH POC ABG pCO2 POC ABG pO2 ABG pO2 ABG HCO3 ABG O2 Saturation ABG Base Excess ABG Hemoglobin ABG Oxyhemoglobin ABG Sodium ABG Potassium ABG Glucose Oxyhemoglobin Carboxyhemoglobin Sodium Potassium Chloride 108.3 H Carbon Dioxide BUN 30 H Creatinine 0.7 L Glucose POC Glucose 160 H 122 H Lactic Acid Calcium Phosphorus Magnesium Ferritin Lactate Dehydrogenase C-Reactive Protein NT-Pro-B Natriuret Pep Total Protein Albumin Triglycerides Arterial Blood Glucose Urine pH Ur Specific [place] Coronavirus (PCR) 03/21/21 03/21/21 03/21/21 09:18 10:09 13:20 WBC RBC Hgb Hct MCV MCHC RDW Plt Count Lymph % (Auto) [place] % (Auto) Lymph # (Auto) [place] # (Auto) Seg Neutrophils % Seg Neuts % (Manual) Lymphocytes % (Manual) Monocytes % (Manual) Nucleated RBC % Seg Neutrophils # Seg Neutrophils # Man Lymphocytes # (Manual) Monocytes # (Manual) PT INR APTT D-Dimer Heparin Anti-Xa Level ABG pH POC ABG pCO2 POC ABG pO2 ABG pO2 60.7 L ABG HCO3 30.6 H ABG O2 Saturation 93.6 L ABG Base Excess 5.3 H ABG Hemoglobin ABG Oxyhemoglobin ABG Sodium ABG Potassium ABG Glucose Oxyhemoglobin 91.7 L Carboxyhemoglobin Sodium Potassium Chloride Carbon Dioxide BUN Creatinine Glucose POC Glucose 169 H 122 H Lactic Acid Calcium Phosphorus Magnesium Ferritin Lactate Dehydrogenase C-Reactive Protein NT-Pro-B Natriuret Pep Total Protein Albumin Triglycerides Arterial Blood Glucose Urine pH Ur Specific [place] Coronavirus (PCR) 03/21/21 03/21/21 03/21/21 17:25 22:41 23:52 WBC RBC Hgb Hct MCV MCHC RDW Plt Count Lymph % (Auto) [place] % (Auto) Lymph # (Auto) [place] # (Auto) Seg Neutrophils % Seg Neuts % (Manual) Lymphocytes % (Manual) Monocytes % (Manual) Nucleated RBC % Seg Neutrophils # Seg Neutrophils # Man Lymphocytes # (Manual) Monocytes # (Manual) PT INR APTT D-Dimer Heparin Anti-Xa Level ABG pH POC ABG pCO2 POC ABG pO2 ABG pO2 ABG HCO3 ABG O2 Saturation ABG Base Excess ABG Hemoglobin ABG Oxyhemoglobin ABG Sodium ABG Potassium ABG Glucose Oxyhemoglobin Carboxyhemoglobin Sodium Potassium Chloride Carbon Dioxide BUN Creatinine Glucose POC Glucose 121 H 139 H 140 H Lactic Acid Calcium Phosphorus Magnesium Ferritin Lactate Dehydrogenase C-Reactive Protein NT-Pro-B Natriuret Pep Total Protein Albumin Triglycerides Arterial Blood Glucose Urine pH Ur Specific [place] Coronavirus (PCR) 03/22/21 03/22/21 03/22/21 05:58 07:26 07:26 WBC RBC Hgb Hct MCV MCHC 31 L RDW 16.1 H Plt Count Lymph % (Auto) [place] % (Auto) Lymph # (Auto) [place] # (Auto) Seg Neutrophils % Seg Neuts % (Manual) Lymphocytes % (Manual) Monocytes % (Manual) Nucleated RBC % Seg Neutrophils # Seg Neutrophils # Man Lymphocytes # (Manual) Monocytes # (Manual) PT INR APTT D-Dimer Heparin Anti-Xa Level ABG pH POC ABG pCO2 POC ABG pO2 ABG pO2 ABG HCO3 ABG O2 Saturation ABG Base Excess ABG Hemoglobin ABG Oxyhemoglobin ABG Sodium ABG Potassium ABG Glucose Oxyhemoglobin Carboxyhemoglobin Sodium Potassium Chloride 108.5 H Carbon Dioxide BUN 44 H Creatinine Glucose 120 H POC Glucose 131 H Lactic Acid Calcium Phosphorus 5.80 H Magnesium 2.80 H Ferritin Lactate Dehydrogenase C-Reactive Protein NT-Pro-B Natriuret Pep Total Protein Albumin Triglycerides 305 H Arterial Blood Glucose Urine pH Ur Specific [place] Coronavirus (PCR) 03/22/21 03/22/21 03/22/21 09:38 11:15 16:01 WBC RBC Hgb Hct MCV MCHC RDW Plt Count Lymph % (Auto) [place] % (Auto) Lymph # (Auto) [place] # (Auto) Seg Neutrophils % Seg Neuts % (Manual) Lymphocytes % (Manual) Monocytes % (Manual) Nucleated RBC % Seg Neutrophils # Seg Neutrophils # Man Lymphocytes # (Manual) Monocytes # (Manual) PT INR APTT D-Dimer Heparin Anti-Xa Level ABG pH POC ABG pCO2 POC ABG pO2 ABG pO2 70.0 L ABG HCO3 30.0 H ABG O2 Saturation 94.6 L ABG Base Excess 3.6 H ABG Hemoglobin 13.5 L ABG Oxyhemoglobin ABG Sodium ABG Potassium ABG Glucose Oxyhemoglobin 92.5 L Carboxyhemoglobin Sodium Potassium Chloride Carbon Dioxide BUN Creatinine Glucose POC Glucose 186 H 148 H Lactic Acid Calcium Phosphorus Magnesium Ferritin Lactate Dehydrogenase C-Reactive Protein NT-Pro-B Natriuret Pep Total Protein Albumin Triglycerides Arterial Blood Glucose Urine pH Ur Specific [place] Coronavirus (PCR) 03/22/21 03/22/21 03/23/21 21:13 23:48 07:04 WBC 11.7 H RBC Hgb Hct MCV 95 H MCHC RDW 16.1 H Plt Count Lymph % (Auto) [place] % (Auto) Lymph # (Auto) [place] # (Auto) Seg Neutrophils % Seg Neuts % (Manual) Lymphocytes % (Manual) Monocytes % (Manual) Nucleated RBC % Seg Neutrophils # Seg Neutrophils # Man Lymphocytes # (Manual) Monocytes # (Manual) PT INR APTT D-Dimer Heparin Anti-Xa Level ABG pH POC ABG pCO2 POC ABG pO2 ABG pO2 ABG HCO3 ABG O2 Saturation ABG Base Excess ABG Hemoglobin ABG Oxyhemoglobin ABG Sodium ABG Potassium ABG Glucose Oxyhemoglobin Carboxyhemoglobin Sodium Potassium Chloride Carbon Dioxide BUN Creatinine Glucose POC Glucose 121 H 114 H Lactic Acid Calcium Phosphorus Magnesium Ferritin Lactate Dehydrogenase C-Reactive Protein NT-Pro-B Natriuret Pep Total Protein Albumin Triglycerides Arterial Blood Glucose Urine pH Ur Specific [place] Coronavirus (PCR) 03/23/21 03/23/21 03/23/21 07:04 08:35 11:19 WBC RBC Hgb Hct MCV MCHC RDW Plt Count Lymph % (Auto) [place] % (Auto) Lymph # (Auto) [place] # (Auto) Seg Neutrophils % Seg Neuts % (Manual) Lymphocytes % (Manual) Monocytes % (Manual) Nucleated RBC % Seg Neutrophils # Seg Neutrophils # Man Lymphocytes # (Manual) Monocytes # (Manual) PT INR APTT D-Dimer Heparin Anti-Xa Level ABG pH 7.345 L POC ABG pCO2 POC ABG pO2 ABG pO2 167.9 H ABG HCO3 32.2 H ABG O2 Saturation ABG Base Excess 4.8 H ABG Hemoglobin 13.4 L ABG Oxyhemoglobin ABG Sodium ABG Potassium ABG Glucose Oxyhemoglobin Carboxyhemoglobin Sodium 148 H Potassium Chloride 111.3 H Carbon Dioxide 31 H BUN 31 H Creatinine Glucose 131 H POC Glucose 165 H Lactic Acid Calcium Phosphorus Magnesium 2.50 H Ferritin Lactate Dehydrogenase C-Reactive Protein NT-Pro-B Natriuret Pep Total Protein Albumin Triglycerides Arterial Blood Glucose Urine pH Ur Specific [place] Coronavirus (PCR) 03/23/21 03/23/21 03/24/21 16:48 20:52 00:07 WBC RBC Hgb Hct MCV MCHC RDW Plt Count Lymph % (Auto) [place] % (Auto) Lymph # (Auto) [place] # (Auto) Seg Neutrophils % Seg Neuts % (Manual) Lymphocytes % (Manual) Monocytes % (Manual) Nucleated RBC % Seg Neutrophils # Seg Neutrophils # Man Lymphocytes # (Manual) Monocytes # (Manual) PT INR APTT D-Dimer Heparin Anti-Xa Level ABG pH POC ABG pCO2 POC ABG pO2 ABG pO2 ABG HCO3 ABG O2 Saturation ABG Base Excess ABG Hemoglobin ABG Oxyhemoglobin ABG Sodium ABG Potassium ABG Glucose Oxyhemoglobin Carboxyhemoglobin Sodium Potassium Chloride Carbon Dioxide BUN Creatinine Glucose POC Glucose 160 H 127 H 147 H Lactic Acid Calcium Phosphorus Magnesium Ferritin Lactate Dehydrogenase C-Reactive Protein NT-Pro-B Natriuret Pep Total Protein Albumin Triglycerides Arterial Blood Glucose Urine pH Ur Specific [place] Coronavirus (PCR) 03/24/21 03/24/21 03/24/21 04:34 04:34 05:20 WBC 13.3 H RBC Hgb Hct MCV MCHC 31 L RDW 16.1 H Plt Count Lymph % (Auto) [place] % (Auto) Lymph # (Auto) [place] # (Auto) Seg Neutrophils % Seg Neuts % (Manual) Lymphocytes % (Manual) Monocytes % (Manual) Nucleated RBC % Seg Neutrophils # Seg Neutrophils # Man Lymphocytes # (Manual) Monocytes # (Manual) PT INR APTT D-Dimer Heparin Anti-Xa Level ABG pH POC ABG pCO2 POC ABG pO2 ABG pO2 ABG HCO3 ABG O2 Saturation ABG Base Excess ABG Hemoglobin ABG Oxyhemoglobin ABG Sodium ABG Potassium ABG Glucose Oxyhemoglobin Carboxyhemoglobin Sodium Potassium 5.2 H Chloride Carbon Dioxide BUN 28 H Creatinine 0.7 L Glucose 152 H POC Glucose 141 H Lactic Acid Calcium Phosphorus Magnesium Ferritin Lactate Dehydrogenase C-Reactive Protein NT-Pro-B Natriuret Pep Total Protein Albumin Triglycerides Arterial Blood Glucose Urine pH Ur Specific [place] Coronavirus (PCR) 03/24/21 03/24/21 03/24/21 09:40 11:38 16:45 WBC RBC Hgb Hct MCV MCHC RDW Plt Count Lymph % (Auto) [place] % (Auto) Lymph # (Auto) [place] # (Auto) Seg Neutrophils % Seg Neuts % (Manual) Lymphocytes % (Manual) Monocytes % (Manual) Nucleated RBC % Seg Neutrophils # Seg Neutrophils # Man Lymphocytes # (Manual) Monocytes # (Manual) PT INR APTT D-Dimer Heparin Anti-Xa Level ABG pH POC ABG pCO2 POC ABG pO2 ABG pO2 ABG HCO3 ABG O2 Saturation ABG Base Excess ABG Hemoglobin ABG Oxyhemoglobin ABG Sodium ABG Potassium ABG Glucose Oxyhemoglobin Carboxyhemoglobin Sodium Potassium Chloride Carbon Dioxide BUN Creatinine Glucose POC Glucose 126 H 136 H 118 H Lactic Acid Calcium Phosphorus Magnesium Ferritin Lactate Dehydrogenase C-Reactive Protein NT-Pro-B Natriuret Pep Total Protein Albumin Triglycerides Arterial Blood Glucose Urine pH Ur Specific [place] Coronavirus (PCR) 03/24/21 03/24/21 03/25/21 21:03 23:49 04:32 WBC RBC Hgb Hct MCV MCHC RDW 16.1 H Plt Count 121 L Lymph % (Auto) [place] % (Auto) Lymph # (Auto) [place] # (Auto) Seg Neutrophils % Seg Neuts % (Manual) Lymphocytes % (Manual) Monocytes % (Manual) Nucleated RBC % Seg Neutrophils # Seg Neutrophils # Man Lymphocytes # (Manual) Monocytes # (Manual) PT INR APTT D-Dimer Heparin Anti-Xa Level ABG pH POC ABG pCO2 POC ABG pO2 ABG pO2 ABG HCO3 ABG O2 Saturation ABG Base Excess ABG Hemoglobin ABG Oxyhemoglobin ABG Sodium ABG Potassium ABG Glucose Oxyhemoglobin Carboxyhemoglobin Sodium Potassium Chloride Carbon Dioxide BUN Creatinine Glucose POC Glucose 116 H 125 H Lactic Acid Calcium Phosphorus Magnesium Ferritin Lactate Dehydrogenase C-Reactive Protein NT-Pro-B Natriuret Pep Total Protein Albumin Triglycerides Arterial Blood Glucose Urine pH Ur Specific [place] Coronavirus (PCR) 03/25/21 03/25/21 03/25/21 04:32 05:21 09:29 WBC RBC Hgb Hct MCV MCHC RDW Plt Count Lymph % (Auto) [place] % (Auto) Lymph # (Auto) [place] # (Auto) Seg Neutrophils % Seg Neuts % (Manual) Lymphocytes % (Manual) Monocytes % (Manual) Nucleated RBC % Seg Neutrophils # Seg Neutrophils # Man Lymphocytes # (Manual) Monocytes # (Manual) PT INR APTT D-Dimer Heparin Anti-Xa Level ABG pH POC ABG pCO2 POC ABG pO2 ABG pO2 ABG HCO3 ABG O2 Saturation ABG Base Excess ABG Hemoglobin ABG Oxyhemoglobin ABG Sodium ABG Potassium ABG Glucose Oxyhemoglobin Carboxyhemoglobin Sodium 135 L D Potassium Chloride Carbon Dioxide BUN 25 H Creatinine 0.7 L Glucose 168 H POC Glucose 149 H 115 H Lactic Acid Calcium Phosphorus Magnesium Ferritin Lactate Dehydrogenase C-Reactive Protein NT-Pro-B Natriuret Pep Total Protein Albumin Triglycerides Arterial Blood Glucose Urine pH Ur Specific [place] Coronavirus (PCR) 03/25/21 03/25/21 03/25/21 12:26 12:35 23:53 WBC RBC Hgb Hct MCV MCHC RDW Plt Count Lymph % (Auto) Mcintosh % (Auto) Lymph # (Auto) Mcintosh # (Auto) Seg Neutrophils % Seg Neuts % (Manual) Lymphocytes % (Manual) Monocytes % (Manual) Nucleated RBC % Seg Neutrophils # Seg Neutrophils # Man Lymphocytes # (Manual) Monocytes # (Manual) PT INR APTT D-Dimer Heparin Anti-Xa Level ABG pH POC ABG pCO2 POC ABG pO2 ABG pO2 100.5 H ABG HCO3 33.6 H ABG O2 Saturation ABG Base Excess 6.4 H ABG Hemoglobin 12.0 L ABG Oxyhemoglobin ABG Sodium ABG Potassium ABG Glucose Oxyhemoglobin Carboxyhemoglobin Sodium Potassium Chloride Carbon Dioxide BUN Creatinine Glucose POC Glucose 108 H 137 H Lactic Acid Calcium Phosphorus Magnesium Ferritin Lactate Dehydrogenase C-Reactive Protein NT-Pro-B Natriuret Pep Total Protein Albumin Triglycerides Arterial Blood Glucose Urine pH Ur Specific [place] Coronavirus (PCR) 03/26/21 03/26/21 03/26/21 05:14 07:09 07:09 WBC RBC Hgb Hct MCV MCHC RDW 16.5 H Plt Count 139 L Lymph % (Auto) [place] % (Auto) Lymph # (Auto) [place] # (Auto) Seg Neutrophils % Seg Neuts % (Manual) Lymphocytes % (Manual) Monocytes % (Manual) Nucleated RBC % Seg Neutrophils # Seg Neutrophils # Man Lymphocytes # (Manual) Monocytes # (Manual) PT INR APTT D-Dimer Heparin Anti-Xa Level ABG pH POC ABG pCO2 POC ABG pO2 ABG pO2 ABG HCO3 ABG O2 Saturation ABG Base Excess ABG Hemoglobin ABG Oxyhemoglobin ABG Sodium ABG Potassium ABG Glucose Oxyhemoglobin Carboxyhemoglobin Sodium Potassium Chloride Carbon Dioxide BUN 22 H Creatinine 0.7 L Glucose 108 H POC Glucose 116 H Lactic Acid Calcium Phosphorus Magnesium Ferritin Lactate Dehydrogenase C-Reactive Protein NT-Pro-B Natriuret Pep Total Protein Albumin Triglycerides Arterial Blood Glucose Urine pH Ur Specific [place] Coronavirus (PCR) 03/26/21 03/26/21 03/26/21 09:51 11:15 16:59 WBC RBC Hgb Hct MCV MCHC RDW Plt Count Lymph % (Auto) [place] % (Auto) Lymph # (Auto) [place] # (Auto) Seg Neutrophils % Seg Neuts % (Manual) Lymphocytes % (Manual) Monocytes % (Manual) Nucleated RBC % Seg Neutrophils # Seg Neutrophils # Man Lymphocytes # (Manual) Monocytes # (Manual) PT INR APTT D-Dimer Heparin Anti-Xa Level ABG pH POC ABG pCO2 POC ABG pO2 ABG pO2 ABG HCO3 ABG O2 Saturation ABG Base Excess ABG Hemoglobin ABG Oxyhemoglobin ABG Sodium ABG Potassium ABG Glucose Oxyhemoglobin Carboxyhemoglobin Sodium Potassium Chloride Carbon Dioxide BUN Creatinine Glucose POC Glucose 107 H 119 H 174 H Lactic Acid Calcium Phosphorus Magnesium Ferritin Lactate Dehydrogenase C-Reactive Protein NT-Pro-B Natriuret Pep Total Protein Albumin Triglycerides Arterial Blood Glucose Urine pH Ur Specific [place] Coronavirus (PCR) 03/26/21 03/27/21 03/27/21 22:18 07:08 10:28 WBC RBC Hgb Hct MCV 95 H MCHC RDW 16.2 H Plt Count 134 L Lymph % (Auto) [place] % (Auto) Lymph # (Auto) [place] # (Auto) Seg Neutrophils % Seg Neuts % (Manual) Lymphocytes % (Manual) Monocytes % (Manual) Nucleated RBC % Seg Neutrophils # Seg Neutrophils # Man Lymphocytes # (Manual) Monocytes # (Manual) PT INR APTT D-Dimer Heparin Anti-Xa Level ABG pH POC ABG pCO2 POC ABG pO2 ABG pO2 ABG HCO3 ABG O2 Saturation ABG Base Excess ABG Hemoglobin ABG Oxyhemoglobin ABG Sodium ABG Potassium ABG Glucose Oxyhemoglobin Carboxyhemoglobin Sodium Potassium Chloride Carbon Dioxide BUN Creatinine Glucose POC Glucose 107 H 52 L Lactic Acid Calcium Phosphorus Magnesium Ferritin Lactate Dehydrogenase C-Reactive Protein NT-Pro-B Natriuret Pep Total Protein Albumin Triglycerides Arterial Blood Glucose Urine pH Ur Specific [place] Coronavirus (PCR) 03/27/21 03/27/21 03/27/21 10:28 11:45 17:39 WBC RBC Hgb Hct MCV MCHC RDW Plt Count Lymph % (Auto) [place] % (Auto) Lymph # (Auto) [place] # (Auto) Seg Neutrophils % Seg Neuts % (Manual) Lymphocytes % (Manual) Monocytes % (Manual) Nucleated RBC % Seg Neutrophils # Seg Neutrophils # Man Lymphocytes # (Manual) Monocytes # (Manual) PT INR APTT D-Dimer Heparin Anti-Xa Level ABG pH POC ABG pCO2 POC ABG pO2 ABG pO2 ABG HCO3 ABG O2 Saturation ABG Base Excess ABG Hemoglobin ABG Oxyhemoglobin ABG Sodium ABG Potassium ABG Glucose Oxyhemoglobin Carboxyhemoglobin Sodium 136 L Potassium Chloride Carbon Dioxide BUN Creatinine 0.7 L Glucose 150 H POC Glucose 121 H 165 H Lactic Acid Calcium Phosphorus Magnesium Ferritin Lactate Dehydrogenase C-Reactive Protein NT-Pro-B Natriuret Pep Total Protein Albumin Triglycerides Arterial Blood Glucose Urine pH Ur Specific [place] Coronavirus (PCR) 03/28/21 03/28/21 03/28/21 07:14 11:42 18:22 WBC RBC Hgb Hct MCV MCHC RDW 16.4 H Plt Count Lymph % (Auto) [place] % (Auto) Lymph # (Auto) [place] # (Auto) Seg Neutrophils % Seg Neuts % (Manual) Lymphocytes % (Manual) Monocytes % (Manual) Nucleated RBC % Seg Neutrophils # Seg Neutrophils # Man Lymphocytes # (Manual) Monocytes # (Manual) PT INR APTT D-Dimer Heparin Anti-Xa Level ABG pH POC ABG pCO2 POC ABG pO2 ABG pO2 ABG HCO3 ABG O2 Saturation ABG Base Excess ABG Hemoglobin ABG Oxyhemoglobin ABG Sodium ABG Potassium ABG Glucose Oxyhemoglobin Carboxyhemoglobin Sodium Potassium Chloride Carbon Dioxide BUN Creatinine Glucose POC Glucose 145 H 169 H Lactic Acid Calcium Phosphorus Magnesium Ferritin Lactate Dehydrogenase C-Reactive Protein NT-Pro-B Natriuret Pep Total Protein Albumin Triglycerides Arterial Blood Glucose Urine pH Ur Specific [place] Coronavirus (PCR) 03/28/21 03/29/21 03/29/21 23:39 04:50 04:50 WBC RBC Hgb 11.0 L Hct 34.9 L MCV MCHC RDW 15.9 H Plt Count Lymph % (Auto) [place] % (Auto) Lymph # (Auto) [place] # (Auto) Seg Neutrophils % Seg Neuts % (Manual) Lymphocytes % (Manual) Monocytes % (Manual) Nucleated RBC % Seg Neutrophils # Seg Neutrophils # Man Lymphocytes # (Manual) Monocytes # (Manual) PT INR APTT D-Dimer Heparin Anti-Xa Level ABG pH POC ABG pCO2 POC ABG pO2 ABG pO2 ABG HCO3 ABG O2 Saturation ABG Base Excess ABG Hemoglobin ABG Oxyhemoglobin ABG Sodium ABG Potassium ABG Glucose Oxyhemoglobin Carboxyhemoglobin Sodium Potassium Chloride Carbon Dioxide 34 H BUN Creatinine 0.6 L Glucose 152 H POC Glucose 139 H Lactic Acid Calcium Phosphorus Magnesium Ferritin Lactate Dehydrogenase C-Reactive Protein NT-Pro-B Natriuret Pep Total Protein Albumin Triglycerides Arterial Blood Glucose Urine pH Ur Specific [place] Coronavirus (PCR) 03/29/21 03/29/21 03/29/21 05:25 11:34 18:02 WBC RBC Hgb Hct MCV MCHC RDW Plt Count Lymph % (Auto) [place] % (Auto) Lymph # (Auto) [place] # (Auto) Seg Neutrophils % Seg Neuts % (Manual) Lymphocytes % (Manual) Monocytes % (Manual) Nucleated RBC % Seg Neutrophils # Seg Neutrophils # Man Lymphocytes # (Manual) Monocytes # (Manual) PT INR APTT D-Dimer Heparin Anti-Xa Level ABG pH POC ABG pCO2 POC ABG pO2 ABG pO2 ABG HCO3 ABG O2 Saturation ABG Base Excess ABG Hemoglobin ABG Oxyhemoglobin ABG Sodium ABG Potassium ABG Glucose Oxyhemoglobin Carboxyhemoglobin Sodium Potassium Chloride Carbon Dioxide BUN Creatinine Glucose POC Glucose 127 H 169 H 173 H Lactic Acid Calcium Phosphorus Magnesium Ferritin Lactate Dehydrogenase C-Reactive Protein NT-Pro-B Natriuret Pep Total Protein Albumin Triglycerides Arterial Blood Glucose Urine pH Ur Specific [place] Coronavirus (PCR) 03/29/21 03/30/21 03/30/21 21:42 00:01 05:36 WBC RBC Hgb Hct MCV MCHC RDW 16.7 H Plt Count Lymph % (Auto) [place] % (Auto) Lymph # (Auto) [place] # (Auto) Seg Neutrophils % Seg Neuts % (Manual) Lymphocytes % (Manual) Monocytes % (Manual) Nucleated RBC % Seg Neutrophils # Seg Neutrophils # Man Lymphocytes # (Manual) Monocytes # (Manual) PT INR APTT D-Dimer Heparin Anti-Xa Level ABG pH POC ABG pCO2 POC ABG pO2 ABG pO2 ABG HCO3 ABG O2 Saturation ABG Base Excess ABG Hemoglobin ABG Oxyhemoglobin ABG Sodium ABG Potassium ABG Glucose Oxyhemoglobin Carboxyhemoglobin Sodium Potassium Chloride Carbon Dioxide BUN Creatinine Glucose POC Glucose 184 H 161 H Lactic Acid Calcium Phosphorus Magnesium Ferritin Lactate Dehydrogenase C-Reactive Protein NT-Pro-B Natriuret Pep Total Protein Albumin Triglycerides Arterial Blood Glucose Urine pH Ur Specific [place] Coronavirus (PCR) 03/30/21 03/30/21 03/30/21 05:36 06:03 11:32 WBC RBC Hgb Hct MCV MCHC RDW Plt Count Lymph % (Auto) [place] % (Auto) Lymph # (Auto) [place] # (Auto) Seg Neutrophils % Seg Neuts % (Manual) Lymphocytes % (Manual) Monocytes % (Manual) Nucleated RBC % Seg Neutrophils # Seg Neutrophils # Man Lymphocytes # (Manual) Monocytes # (Manual) PT INR APTT D-Dimer Heparin Anti-Xa Level ABG pH POC ABG pCO2 POC ABG pO2 ABG pO2 ABG HCO3 ABG O2 Saturation ABG Base Excess ABG Hemoglobin ABG Oxyhemoglobin ABG Sodium ABG Potassium ABG Glucose Oxyhemoglobin Carboxyhemoglobin Sodium Potassium Chloride Carbon Dioxide BUN Creatinine 0.5 L Glucose 127 H POC Glucose 130 H 183 H Lactic Acid Calcium Phosphorus Magnesium Ferritin Lactate Dehydrogenase C-Reactive Protein NT-Pro-B Natriuret Pep Total Protein Albumin Triglycerides Arterial Blood Glucose Urine pH Ur Specific [place] Coronavirus (PCR) 03/30/21 03/30/21 03/30/21 15:00 16:23 21:07 WBC RBC Hgb Hct MCV MCHC RDW Plt Count Lymph % (Auto) [place] % (Auto) Lymph # (Auto) [place] # (Auto) Seg Neutrophils % Seg Neuts % (Manual) Lymphocytes % (Manual) Monocytes % (Manual) Nucleated RBC % Seg Neutrophils # Seg Neutrophils # Man Lymphocytes # (Manual) Monocytes # (Manual) PT INR APTT D-Dimer Heparin Anti-Xa Level ABG pH POC ABG pCO2 POC ABG pO2 ABG pO2 67.2 L ABG HCO3 34.9 H ABG O2 Saturation ABG Base Excess 9.1 H ABG Hemoglobin 11.6 L ABG Oxyhemoglobin ABG Sodium ABG Potassium ABG Glucose Oxyhemoglobin 93.0 L Carboxyhemoglobin Sodium Potassium Chloride Carbon Dioxide BUN Creatinine Glucose POC Glucose 162 H 146 H Lactic Acid Calcium Phosphorus Magnesium Ferritin Lactate Dehydrogenase C-Reactive Protein NT-Pro-B Natriuret Pep Total Protein Albumin Triglycerides Arterial Blood Glucose Urine pH Ur Specific [place] Coronavirus (PCR) 03/30/21 03/31/21 03/31/21 23:23 05:44 11:19 WBC RBC Hgb Hct MCV MCHC RDW Plt Count Lymph % (Auto) [place] % (Auto) Lymph # (Auto) [place] # (Auto) Seg Neutrophils % Seg Neuts % (Manual) Lymphocytes % (Manual) Monocytes % (Manual) Nucleated RBC % Seg Neutrophils # Seg Neutrophils # Man Lymphocytes # (Manual) Monocytes # (Manual) PT INR APTT D-Dimer Heparin Anti-Xa Level ABG pH POC ABG pCO2 POC ABG pO2 ABG pO2 ABG HCO3 ABG O2 Saturation ABG Base Excess ABG Hemoglobin ABG Oxyhemoglobin ABG Sodium ABG Potassium ABG Glucose Oxyhemoglobin Carboxyhemoglobin Sodium Potassium Chloride Carbon Dioxide BUN Creatinine Glucose POC Glucose 138 H 180 H 178 H Lactic Acid Calcium Phosphorus Magnesium Ferritin Lactate Dehydrogenase C-Reactive Protein NT-Pro-B Natriuret Pep Total Protein Albumin Triglycerides Arterial Blood Glucose Urine pH Ur Specific [place] Coronavirus (PCR) 03/31/21 03/31/21 03/31/21 12:50 13:30 16:06 WBC RBC Hgb 11.3 L Hct 35.1 L MCV MCHC RDW 16.5 H Plt Count Lymph % (Auto) 7.6 L [place] % (Auto) 9.5 H Lymph # (Auto) 0.6 L [place] # (Auto) Seg Neutrophils % 78.3 H Seg Neuts % (Manual) Lymphocytes % (Manual) Monocytes % (Manual) Nucleated RBC % Seg Neutrophils # Seg Neutrophils # Man Lymphocytes # (Manual) Monocytes # (Manual) PT INR APTT D-Dimer Heparin Anti-Xa Level ABG pH POC ABG pCO2 POC ABG pO2 ABG pO2 99.4 H ABG HCO3 34.9 H ABG O2 Saturation ABG Base Excess 8.4 H ABG Hemoglobin 11.8 L ABG Oxyhemoglobin ABG Sodium ABG Potassium ABG Glucose Oxyhemoglobin Carboxyhemoglobin Sodium Potassium Chloride Carbon Dioxide BUN Creatinine Glucose POC Glucose 197 H Lactic Acid Calcium Phosphorus Magnesium Ferritin Lactate Dehydrogenase C-Reactive Protein NT-Pro-B Natriuret Pep Total Protein Albumin Triglycerides Arterial Blood Glucose Urine pH Ur Specific [place] Coronavirus (PCR) 03/31/21 04/01/21 04/01/21 20:51 05:37 07:16 WBC RBC 3.39 L Hgb 10.5 L Hct 31.6 L MCV MCHC RDW 16.1 H Plt Count Lymph % (Auto) [place] % (Auto) Lymph # (Auto) [place] # (Auto) Seg Neutrophils % Seg Neuts % (Manual) Lymphocytes % (Manual) Monocytes % (Manual) Nucleated RBC % Seg Neutrophils # Seg Neutrophils # Man Lymphocytes # (Manual) Monocytes # (Manual) PT INR APTT D-Dimer Heparin Anti-Xa Level ABG pH POC ABG pCO2 POC ABG pO2 ABG pO2 ABG HCO3 ABG O2 Saturation ABG Base Excess ABG Hemoglobin ABG Oxyhemoglobin ABG Sodium ABG Potassium ABG Glucose Oxyhemoglobin Carboxyhemoglobin Sodium Potassium Chloride Carbon Dioxide BUN Creatinine Glucose POC Glucose 140 H 128 H Lactic Acid Calcium Phosphorus Magnesium Ferritin Lactate Dehydrogenase C-Reactive Protein NT-Pro-B Natriuret Pep Total Protein Albumin Triglycerides Arterial Blood Glucose Urine pH Ur Specific [place] Coronavirus (PCR) 04/01/21 04/01/21 04/01/21 07:16 11:52 16:56 WBC RBC Hgb Hct MCV MCHC RDW Plt Count Lymph % (Auto) [place] % (Auto) Lymph # (Auto) [place] # (Auto) Seg Neutrophils % Seg Neuts % (Manual) Lymphocytes % (Manual) Monocytes % (Manual) Nucleated RBC % Seg Neutrophils # Seg Neutrophils # Man Lymphocytes # (Manual) Monocytes # (Manual) PT INR APTT D-Dimer Heparin Anti-Xa Level ABG pH POC ABG pCO2 POC ABG pO2 ABG pO2 ABG HCO3 ABG O2 Saturation ABG Base Excess ABG Hemoglobin ABG Oxyhemoglobin ABG Sodium ABG Potassium ABG Glucose Oxyhemoglobin Carboxyhemoglobin Sodium Potassium Chloride Carbon Dioxide BUN Creatinine 0.6 L Glucose 131 H POC Glucose 182 H 179 H Lactic Acid Calcium 8.3 L Phosphorus Magnesium Ferritin Lactate Dehydrogenase C-Reactive Protein NT-Pro-B Natriuret Pep Total Protein Albumin Triglycerides Arterial Blood Glucose Urine pH Ur Specific [place] Coronavirus (PCR) 04/01/21 04/01/21 04/02/21 21:30 23:40 04:26 WBC RBC 3.62 L Hgb 10.8 L Hct 33.9 L MCV MCHC RDW 16.0 H Plt Count Lymph % (Auto) [place] % (Auto) Lymph # (Auto) [place] # (Auto) Seg Neutrophils % Seg Neuts % (Manual) Lymphocytes % (Manual) Monocytes % (Manual) Nucleated RBC % Seg Neutrophils # Seg Neutrophils # Man Lymphocytes # (Manual) Monocytes # (Manual) PT INR APTT D-Dimer Heparin Anti-Xa Level ABG pH POC ABG pCO2 POC ABG pO2 ABG pO2 ABG HCO3 ABG O2 Saturation ABG Base Excess ABG Hemoglobin ABG Oxyhemoglobin ABG Sodium ABG Potassium ABG Glucose Oxyhemoglobin Carboxyhemoglobin Sodium Potassium Chloride Carbon Dioxide BUN Creatinine Glucose POC Glucose 131 H 129 H Lactic Acid Calcium Phosphorus Magnesium Ferritin Lactate Dehydrogenase C-Reactive Protein NT-Pro-B Natriuret Pep Total Protein Albumin Triglycerides Arterial Blood Glucose Urine pH Ur Specific [place] Coronavirus (PCR) 04/02/21 04/02/21 04/02/21 04:26 05:54 11:35 WBC RBC Hgb Hct MCV MCHC RDW Plt Count Lymph % (Auto) [place] % (Auto) Lymph # (Auto) [place] # (Auto) Seg Neutrophils % Seg Neuts % (Manual) Lymphocytes % (Manual) Monocytes % (Manual) Nucleated RBC % Seg Neutrophils # Seg Neutrophils # Man Lymphocytes # (Manual) Monocytes # (Manual) PT INR APTT D-Dimer Heparin Anti-Xa Level ABG pH POC ABG pCO2 POC ABG pO2 ABG pO2 ABG HCO3 ABG O2 Saturation ABG Base Excess ABG Hemoglobin ABG Oxyhemoglobin ABG Sodium ABG Potassium ABG Glucose Oxyhemoglobin Carboxyhemoglobin Sodium 136 L Potassium Chloride Carbon Dioxide BUN Creatinine 0.6 L Glucose 152 H POC Glucose 151 H 178 H Lactic Acid Calcium Phosphorus Magnesium Ferritin Lactate Dehydrogenase C-Reactive Protein NT-Pro-B Natriuret Pep Total Protein Albumin Triglycerides Arterial Blood Glucose Urine pH Ur Specific [place] Coronavirus (PCR) 04/02/21 04/02/21 04/02/21 16:11 21:09 23:38 WBC RBC Hgb Hct MCV MCHC RDW Plt Count Lymph % (Auto) [place] % (Auto) Lymph # (Auto) [place] # (Auto) Seg Neutrophils % Seg Neuts % (Manual) Lymphocytes % (Manual) Monocytes % (Manual) Nucleated RBC % Seg Neutrophils # Seg Neutrophils # Man Lymphocytes # (Manual) Monocytes # (Manual) PT INR APTT D-Dimer Heparin Anti-Xa Level ABG pH POC ABG pCO2 POC ABG pO2 ABG pO2 ABG HCO3 ABG O2 Saturation ABG Base Excess ABG Hemoglobin ABG Oxyhemoglobin ABG Sodium ABG Potassium ABG Glucose Oxyhemoglobin Carboxyhemoglobin Sodium Potassium Chloride Carbon Dioxide BUN Creatinine Glucose POC Glucose 186 H 145 H 152 H Lactic Acid Calcium Phosphorus Magnesium Ferritin Lactate Dehydrogenase C-Reactive Protein NT-Pro-B Natriuret Pep Total Protein Albumin Triglycerides Arterial Blood Glucose Urine pH Ur Specific [place] Coronavirus (PCR) 04/03/21 04/03/21 04/03/21 04:14 04:14 05:27 WBC RBC 3.62 L Hgb 11.0 L Hct 34.0 L MCV MCHC RDW 16.3 H Plt Count Lymph % (Auto) [place] % (Auto) Lymph # (Auto) [place] # (Auto) Seg Neutrophils % Seg Neuts % (Manual) Lymphocytes % (Manual) Monocytes % (Manual) Nucleated RBC % Seg Neutrophils # Seg Neutrophils # Man Lymphocytes # (Manual) Monocytes # (Manual) PT INR APTT D-Dimer Heparin Anti-Xa Level ABG pH POC ABG pCO2 POC ABG pO2 ABG pO2 ABG HCO3 ABG O2 Saturation ABG Base Excess ABG Hemoglobin ABG Oxyhemoglobin ABG Sodium ABG Potassium ABG Glucose Oxyhemoglobin Carboxyhemoglobin Sodium Potassium Chloride Carbon Dioxide 31 H BUN Creatinine 0.6 L Glucose 155 H POC Glucose 165 H Lactic Acid Calcium Phosphorus Magnesium Ferritin Lactate Dehydrogenase C-Reactive Protein NT-Pro-B Natriuret Pep Total Protein Albumin Triglycerides Arterial Blood Glucose Urine pH Ur Specific [place] Coronavirus (PCR) 04/03/21 04/03/21 04/03/21 11:02 16:19 19:45 WBC RBC Hgb Hct MCV MCHC RDW Plt Count Lymph % (Auto) [place] % (Auto) Lymph # (Auto) [place] # (Auto) Seg Neutrophils % Seg Neuts % (Manual) Lymphocytes % (Manual) Monocytes % (Manual) Nucleated RBC % Seg Neutrophils # Seg Neutrophils # Man Lymphocytes # (Manual) Monocytes # (Manual) PT INR APTT D-Dimer Heparin Anti-Xa Level ABG pH POC ABG pCO2 POC ABG pO2 ABG pO2 ABG HCO3 ABG O2 Saturation ABG Base Excess ABG Hemoglobin ABG Oxyhemoglobin ABG Sodium ABG Potassium ABG Glucose Oxyhemoglobin Carboxyhemoglobin Sodium Potassium Chloride Carbon Dioxide BUN Creatinine Glucose POC Glucose 161 H 180 H 136 H Lactic Acid Calcium Phosphorus Magnesium Ferritin Lactate Dehydrogenase C-Reactive Protein NT-Pro-B Natriuret Pep Total Protein Albumin Triglycerides Arterial Blood Glucose Urine pH Ur Specific [place] Coronavirus (PCR) 04/04/21 04/04/21 04/04/21 00:21 04:33 04:33 WBC 13.1 H RBC 3.49 L Hgb 10.3 L Hct 32.7 L MCV MCHC RDW 16.1 H Plt Count Lymph % (Auto) [place] % (Auto) Lymph # (Auto) [place] # (Auto) Seg Neutrophils % Seg Neuts % (Manual) Lymphocytes % (Manual) Monocytes % (Manual) Nucleated RBC % Seg Neutrophils # Seg Neutrophils # Man Lymphocytes # (Manual) Monocytes # (Manual) PT INR APTT D-Dimer Heparin Anti-Xa Level ABG pH POC ABG pCO2 POC ABG pO2 ABG pO2 ABG HCO3 ABG O2 Saturation ABG Base Excess ABG Hemoglobin ABG Oxyhemoglobin ABG Sodium ABG Potassium ABG Glucose Oxyhemoglobin Carboxyhemoglobin Sodium Potassium Chloride Carbon Dioxide 31 H BUN Creatinine 0.4 L Glucose 153 H POC Glucose 140 H Lactic Acid Calcium Phosphorus Magnesium Ferritin Lactate Dehydrogenase C-Reactive Protein NT-Pro-B Natriuret Pep Total Protein Albumin Triglycerides Arterial Blood Glucose Urine pH Ur Specific [place] Coronavirus (PCR) 04/04/21 04/04/21 04/04/21 05:16 11:39 17:22 WBC RBC Hgb Hct MCV MCHC RDW Plt Count Lymph % (Auto) [place] % (Auto) Lymph # (Auto) [place] # (Auto) Seg Neutrophils % Seg Neuts % (Manual) Lymphocytes % (Manual) Monocytes % (Manual) Nucleated RBC % Seg Neutrophils # Seg Neutrophils # Man Lymphocytes # (Manual) Monocytes # (Manual) PT INR APTT D-Dimer Heparin Anti-Xa Level ABG pH POC ABG pCO2 POC ABG pO2 ABG pO2 ABG HCO3 ABG O2 Saturation ABG Base Excess ABG Hemoglobin ABG Oxyhemoglobin ABG Sodium ABG Potassium ABG Glucose Oxyhemoglobin Carboxyhemoglobin Sodium Potassium Chloride Carbon Dioxide BUN Creatinine Glucose POC Glucose 152 H 154 H 198 H Lactic Acid Calcium Phosphorus Magnesium Ferritin Lactate Dehydrogenase C-Reactive Protein NT-Pro-B Natriuret Pep Total Protein Albumin Triglycerides Arterial Blood Glucose Urine pH Ur Specific [place] Coronavirus (PCR) 04/04/21 04/04/21 04/05/21 20:14 23:16 04:15 WBC RBC 3.21 L Hgb 10.0 L Hct 30.3 L MCV MCHC RDW 16.4 H Plt Count Lymph % (Auto) [place] % (Auto) Lymph # (Auto) [place] # (Auto) Seg Neutrophils % Seg Neuts % (Manual) Lymphocytes % (Manual) Monocytes % (Manual) Nucleated RBC % Seg Neutrophils # Seg Neutrophils # Man Lymphocytes # (Manual) Monocytes # (Manual) PT INR APTT D-Dimer Heparin Anti-Xa Level ABG pH POC ABG pCO2 POC ABG pO2 ABG pO2 ABG HCO3 ABG O2 Saturation ABG Base Excess ABG Hemoglobin ABG Oxyhemoglobin ABG Sodium ABG Potassium ABG Glucose Oxyhemoglobin Carboxyhemoglobin Sodium Potassium Chloride Carbon Dioxide BUN Creatinine Glucose POC Glucose 161 H 139 H Lactic Acid Calcium Phosphorus Magnesium Ferritin Lactate Dehydrogenase C-Reactive Protein NT-Pro-B Natriuret Pep Total Protein Albumin Triglycerides Arterial Blood Glucose Urine pH Ur Specific [place] Coronavirus (PCR) 04/05/21 04/05/21 04/05/21 04:15 05:34 12:09 WBC RBC Hgb Hct MCV MCHC RDW Plt Count Lymph % (Auto) [place] % (Auto) Lymph # (Auto) [place] # (Auto) Seg Neutrophils % Seg Neuts % (Manual) Lymphocytes % (Manual) Monocytes % (Manual) Nucleated RBC % Seg Neutrophils # Seg Neutrophils # Man Lymphocytes # (Manual) Monocytes # (Manual) PT INR APTT D-Dimer Heparin Anti-Xa Level ABG pH POC ABG pCO2 POC ABG pO2 ABG pO2 ABG HCO3 ABG O2 Saturation ABG Base Excess ABG Hemoglobin ABG Oxyhemoglobin ABG Sodium ABG Potassium ABG Glucose Oxyhemoglobin Carboxyhemoglobin Sodium Potassium Chloride 97.6 L Carbon Dioxide 32 H BUN Creatinine 0.5 L Glucose 147 H POC Glucose 145 H 173 H Lactic Acid Calcium Phosphorus Magnesium Ferritin Lactate Dehydrogenase C-Reactive Protein NT-Pro-B Natriuret Pep Total Protein Albumin Triglycerides Arterial Blood Glucose Urine pH Ur Specific [place] Coronavirus (PCR) 04/05/21 04/05/21 04/05/21 17:35 21:07 23:15 WBC RBC Hgb Hct MCV MCHC RDW Plt Count Lymph % (Auto) [place] % (Auto) Lymph # (Auto) [place] # (Auto) Seg Neutrophils % Seg Neuts % (Manual) Lymphocytes % (Manual) Monocytes % (Manual) Nucleated RBC % Seg Neutrophils # Seg Neutrophils # Man Lymphocytes # (Manual) Monocytes # (Manual) PT INR APTT D-Dimer Heparin Anti-Xa Level ABG pH POC ABG pCO2 POC ABG pO2 ABG pO2 ABG HCO3 ABG O2 Saturation ABG Base Excess ABG Hemoglobin ABG Oxyhemoglobin ABG Sodium ABG Potassium ABG Glucose Oxyhemoglobin Carboxyhemoglobin Sodium Potassium Chloride Carbon Dioxide BUN Creatinine Glucose POC Glucose 143 H 157 H 171 H Lactic Acid Calcium Phosphorus Magnesium Ferritin Lactate Dehydrogenase C-Reactive Protein NT-Pro-B Natriuret Pep Total Protein Albumin Triglycerides Arterial Blood Glucose Urine pH Ur Specific [place] Coronavirus (PCR) 04/06/21 04/06/21 04/06/21 04:49 05:14 11:42 WBC RBC Hgb Hct MCV MCHC RDW Plt Count Lymph % (Auto) [place] % (Auto) Lymph # (Auto) [place] # (Auto) Seg Neutrophils % Seg Neuts % (Manual) Lymphocytes % (Manual) Monocytes % (Manual) Nucleated RBC % Seg Neutrophils # Seg Neutrophils # Man Lymphocytes # (Manual) Monocytes # (Manual) PT INR APTT D-Dimer Heparin Anti-Xa Level ABG pH POC ABG pCO2 57.4 H POC ABG pO2 55.1 L ABG pO2 ABG HCO3 ABG O2 Saturation ABG Base Excess ABG Hemoglobin 11.5 L ABG Oxyhemoglobin 87.5 L ABG Sodium ABG Potassium ABG Glucose Oxyhemoglobin Carboxyhemoglobin Sodium Potassium Chloride Carbon Dioxide BUN Creatinine Glucose POC Glucose 145 H 171 H Lactic Acid Calcium Phosphorus Magnesium Ferritin Lactate Dehydrogenase C-Reactive Protein NT-Pro-B Natriuret Pep Total Protein Albumin Triglycerides Arterial Blood Glucose Urine pH Ur Specific [place] Coronavirus (PCR) 04/06/21 04/06/21 04/06/21 11:50 15:36 15:36 WBC RBC Hgb 10.4 L Hct 32.5 L MCV MCHC RDW Plt Count 444 H Lymph % (Auto) [place] % (Auto) Lymph # (Auto) [place] # (Auto) Seg Neutrophils % Seg Neuts % (Manual) Lymphocytes % (Manual) Monocytes % (Manual) Nucleated RBC % Seg Neutrophils # Seg Neutrophils # Man Lymphocytes # (Manual) Monocytes # (Manual) PT INR APTT 37.1 H D-Dimer Heparin Anti-Xa Level ABG pH 7.341 L POC ABG pCO2 POC ABG pO2 ABG pO2 108.9 H ABG HCO3 38.9 H ABG O2 Saturation ABG Base Excess 10.6 H ABG Hemoglobin 11.5 L ABG Oxyhemoglobin ABG Sodium ABG Potassium ABG Glucose Oxyhemoglobin Carboxyhemoglobin Sodium Potassium Chloride Carbon Dioxide BUN Creatinine Glucose POC Glucose Lactic Acid Calcium Phosphorus Magnesium Ferritin Lactate Dehydrogenase C-Reactive Protein NT-Pro-B Natriuret Pep Total Protein Albumin Triglycerides Arterial Blood Glucose Urine pH Ur Specific [place] Coronavirus (PCR) 04/06/21 04/07/21 04/07/21 17:57 00:30 00:32 WBC RBC Hgb Hct MCV MCHC RDW Plt Count Lymph % (Auto) [place] % (Auto) Lymph # (Auto) [place] # (Auto) Seg Neutrophils % Seg Neuts % (Manual) Lymphocytes % (Manual) Monocytes % (Manual) Nucleated RBC % Seg Neutrophils # Seg Neutrophils # Man Lymphocytes # (Manual) Monocytes # (Manual) PT INR APTT D-Dimer Heparin Anti-Xa Level < 0.10 L ABG pH POC ABG pCO2 POC ABG pO2 ABG pO2 ABG HCO3 ABG O2 Saturation ABG Base Excess ABG Hemoglobin ABG Oxyhemoglobin ABG Sodium ABG Potassium ABG Glucose Oxyhemoglobin Carboxyhemoglobin Sodium Potassium Chloride Carbon Dioxide BUN Creatinine Glucose POC Glucose 151 H 149 H Lactic Acid Calcium Phosphorus Magnesium Ferritin Lactate Dehydrogenase C-Reactive Protein NT-Pro-B Natriuret Pep Total Protein Albumin Triglycerides Arterial Blood Glucose Urine pH Ur Specific [place] Coronavirus (PCR) 04/07/21 04/07/21 04/07/21 05:34 06:08 06:08 WBC RBC 3.20 L Hgb 9.6 L Hct 29.8 L MCV MCHC RDW 16.0 H Plt Count 455 H Lymph % (Auto) [place] % (Auto) Lymph # (Auto) [place] # (Auto) Seg Neutrophils % Seg Neuts % (Manual) Lymphocytes % (Manual) Monocytes % (Manual) Nucleated RBC % Seg Neutrophils # Seg Neutrophils # Man Lymphocytes # (Manual) Monocytes # (Manual) PT INR APTT D-Dimer Heparin Anti-Xa Level ABG pH POC ABG pCO2 POC ABG pO2 ABG pO2 ABG HCO3 ABG O2 Saturation ABG Base Excess ABG Hemoglobin ABG Oxyhemoglobin ABG Sodium ABG Potassium ABG Glucose Oxyhemoglobin Carboxyhemoglobin Sodium Potassium Chloride Carbon Dioxide 35 H BUN Creatinine 0.5 L Glucose 216 H POC Glucose 182 H Lactic Acid Calcium Phosphorus Magnesium Ferritin Lactate Dehydrogenase C-Reactive Protein NT-Pro-B Natriuret Pep Total Protein Albumin Triglycerides Arterial Blood Glucose Urine pH Ur Specific [place] Coronavirus (PCR) 04/07/21 04/07/21 04/07/21 07:55 11:57 17:12 WBC RBC Hgb Hct MCV MCHC RDW Plt Count Lymph % (Auto) [place] % (Auto) Lymph # (Auto) [place] # (Auto) Seg Neutrophils % Seg Neuts % (Manual) Lymphocytes % (Manual) Monocytes % (Manual) Nucleated RBC % Seg Neutrophils # Seg Neutrophils # Man Lymphocytes # (Manual) Monocytes # (Manual) PT INR APTT D-Dimer Heparin Anti-Xa Level < 0.10 L ABG pH POC ABG pCO2 POC ABG pO2 ABG pO2 ABG HCO3 ABG O2 Saturation ABG Base Excess ABG Hemoglobin ABG Oxyhemoglobin ABG Sodium ABG Potassium ABG Glucose Oxyhemoglobin Carboxyhemoglobin Sodium Potassium Chloride Carbon Dioxide BUN Creatinine Glucose POC Glucose 182 H 165 H Lactic Acid Calcium Phosphorus Magnesium Ferritin Lactate Dehydrogenase C-Reactive Protein NT-Pro-B Natriuret Pep Total Protein Albumin Triglycerides Arterial Blood Glucose Urine pH Ur Specific [place] Coronavirus (PCR) 04/07/21 04/08/21 04/08/21 19:55 00:16 03:57 WBC RBC Hgb Hct MCV MCHC RDW Plt Count Lymph % (Auto) [place] % (Auto) Lymph # (Auto) [place] # (Auto) Seg Neutrophils % Seg Neuts % (Manual) Lymphocytes % (Manual) Monocytes % (Manual) Nucleated RBC % Seg Neutrophils # Seg Neutrophils # Man Lymphocytes # (Manual) Monocytes # (Manual) PT INR APTT D-Dimer Heparin Anti-Xa Level < 0.10 L ABG pH POC ABG pCO2 POC ABG pO2 ABG pO2 ABG HCO3 ABG O2 Saturation ABG Base Excess ABG Hemoglobin ABG Oxyhemoglobin ABG Sodium ABG Potassium ABG Glucose Oxyhemoglobin Carboxyhemoglobin Sodium Potassium 5.8 H Chloride 95.5 L Carbon Dioxide 37 H BUN Creatinine 0.5 L Glucose 161 H POC Glucose 175 H Lactic Acid Calcium Phosphorus Magnesium Ferritin Lactate Dehydrogenase C-Reactive Protein NT-Pro-B Natriuret Pep Total Protein Albumin Triglycerides Arterial Blood Glucose Urine pH Ur Specific [place] Coronavirus (PCR) 04/08/21 04/08/21 04/08/21 04:00 05:43 09:26 WBC RBC 3.25 L Hgb 9.9 L Hct 30.8 L MCV 95 H MCHC RDW 16.0 H Plt Count 487 H Lymph % (Auto) [place] % (Auto) Lymph # (Auto) [place] # (Auto) Seg Neutrophils % Seg Neuts % (Manual) Lymphocytes % (Manual) Monocytes % (Manual) Nucleated RBC % Seg Neutrophils # Seg Neutrophils # Man Lymphocytes # (Manual) Monocytes # (Manual) PT INR APTT D-Dimer Heparin Anti-Xa Level ABG pH POC ABG pCO2 POC ABG pO2 ABG pO2 ABG HCO3 ABG O2 Saturation ABG Base Excess ABG Hemoglobin ABG Oxyhemoglobin ABG Sodium ABG Potassium ABG Glucose Oxyhemoglobin Carboxyhemoglobin Sodium Potassium Chloride Carbon Dioxide BUN Creatinine Glucose POC Glucose 162 H 164 H Lactic Acid Calcium Phosphorus Magnesium Ferritin Lactate Dehydrogenase C-Reactive Protein NT-Pro-B Natriuret Pep Total Protein Albumin Triglycerides Arterial Blood Glucose Urine pH Ur Specific [place] Coronavirus (PCR) 04/08/21 04/08/21 04/08/21 11:53 17:19 20:35 WBC RBC Hgb Hct MCV MCHC RDW Plt Count Lymph % (Auto) [place] % (Auto) Lymph # (Auto) [place] # (Auto) Seg Neutrophils % Seg Neuts % (Manual) Lymphocytes % (Manual) Monocytes % (Manual) Nucleated RBC % Seg Neutrophils # Seg Neutrophils # Man Lymphocytes # (Manual) Monocytes # (Manual) PT INR APTT D-Dimer Heparin Anti-Xa Level ABG pH POC ABG pCO2 POC ABG pO2 ABG pO2 ABG HCO3 ABG O2 Saturation ABG Base Excess ABG Hemoglobin ABG Oxyhemoglobin ABG Sodium ABG Potassium ABG Glucose Oxyhemoglobin Carboxyhemoglobin Sodium Potassium Chloride Carbon Dioxide BUN Creatinine Glucose POC Glucose 170 H 157 H 190 H Lactic Acid Calcium Phosphorus Magnesium Ferritin Lactate Dehydrogenase C-Reactive Protein NT-Pro-B Natriuret Pep Total Protein Albumin Triglycerides Arterial Blood Glucose Urine pH Ur Specific [place] Coronavirus (PCR) 04/08/21 04/09/21 04/09/21 23:52 04:21 04:21 WBC 11.4 H RBC 2.97 L Hgb 8.9 L Hct 27.8 L MCV MCHC RDW 15.8 H Plt Count 485 H Lymph % (Auto) [place] % (Auto) Lymph # (Auto) [place] # (Auto) Seg Neutrophils % Seg Neuts % (Manual) Lymphocytes % (Manual) Monocytes % (Manual) Nucleated RBC % Seg Neutrophils # Seg Neutrophils # Man Lymphocytes # (Manual) Monocytes # (Manual) PT INR APTT D-Dimer Heparin Anti-Xa Level ABG pH POC ABG pCO2 POC ABG pO2 ABG pO2 ABG HCO3 ABG O2 Saturation ABG Base Excess ABG Hemoglobin ABG Oxyhemoglobin ABG Sodium ABG Potassium ABG Glucose Oxyhemoglobin Carboxyhemoglobin Sodium Potassium Chloride 97.1 L Carbon Dioxide 40 H BUN 21 H Creatinine 0.5 L Glucose 149 H POC Glucose 170 H Lactic Acid Calcium Phosphorus 1.90 L D Magnesium Ferritin Lactate Dehydrogenase C-Reactive Protein NT-Pro-B Natriuret Pep Total Protein Albumin Triglycerides Arterial Blood Glucose Urine pH Ur Specific [place] Coronavirus (PCR) 04/09/21 04/09/21 04/09/21 05:27 11:55 17:11 WBC RBC Hgb Hct MCV MCHC RDW Plt Count Lymph % (Auto) [place] % (Auto) Lymph # (Auto) [place] # (Auto) Seg Neutrophils % Seg Neuts % (Manual) Lymphocytes % (Manual) Monocytes % (Manual) Nucleated RBC % Seg Neutrophils # Seg Neutrophils # Man Lymphocytes # (Manual) Monocytes # (Manual) PT INR APTT D-Dimer Heparin Anti-Xa Level ABG pH POC ABG pCO2 POC ABG pO2 ABG pO2 ABG HCO3 ABG O2 Saturation ABG Base Excess ABG Hemoglobin ABG Oxyhemoglobin ABG Sodium ABG Potassium ABG Glucose Oxyhemoglobin Carboxyhemoglobin Sodium Potassium Chloride Carbon Dioxide BUN Creatinine Glucose POC Glucose 144 H 190 H 163 H Lactic Acid Calcium Phosphorus Magnesium Ferritin Lactate Dehydrogenase C-Reactive Protein NT-Pro-B Natriuret Pep Total Protein Albumin Triglycerides Arterial Blood Glucose Urine pH Ur Specific [place] Coronavirus (PCR) 04/09/21 04/09/21 04/09/21 20:10 21:12 23:33 WBC RBC Hgb Hct MCV MCHC RDW Plt Count Lymph % (Auto) [place] % (Auto) Lymph # (Auto) [place] # (Auto) Seg Neutrophils % Seg Neuts % (Manual) Lymphocytes % (Manual) Monocytes % (Manual) Nucleated RBC % Seg Neutrophils # Seg Neutrophils # Man Lymphocytes # (Manual) Monocytes # (Manual) PT INR APTT D-Dimer Heparin Anti-Xa Level ABG pH POC ABG pCO2 POC ABG pO2 ABG pO2 68.1 L ABG HCO3 41.3 H ABG O2 Saturation ABG Base Excess 14.6 H ABG Hemoglobin 10.2 L ABG Oxyhemoglobin ABG Sodium ABG Potassium ABG Glucose Oxyhemoglobin 94.7 L Carboxyhemoglobin Sodium Potassium Chloride Carbon Dioxide BUN Creatinine Glucose POC Glucose 163 H 164 H Lactic Acid Calcium Phosphorus Magnesium Ferritin Lactate Dehydrogenase C-Reactive Protein NT-Pro-B Natriuret Pep Total Protein Albumin Triglycerides Arterial Blood Glucose Urine pH Ur Specific [place] Coronavirus (PCR) 04/10/21 04/10/21 04/10/21 05:26 11:41 13:00 WBC RBC 3.09 L Hgb 9.3 L Hct 28.3 L MCV MCHC RDW 15.8 H Plt Count 480 H Lymph % (Auto) [place] % (Auto) Lymph # (Auto) [place] # (Auto) Seg Neutrophils % Seg Neuts % (Manual) Lymphocytes % (Manual) Monocytes % (Manual) Nucleated RBC % Seg Neutrophils # Seg Neutrophils # Man Lymphocytes # (Manual) Monocytes # (Manual) PT INR APTT D-Dimer Heparin Anti-Xa Level ABG pH POC ABG pCO2 POC ABG pO2 ABG pO2 ABG HCO3 ABG O2 Saturation ABG Base Excess ABG Hemoglobin ABG Oxyhemoglobin ABG Sodium ABG Potassium ABG Glucose Oxyhemoglobin Carboxyhemoglobin Sodium Potassium Chloride Carbon Dioxide BUN Creatinine Glucose POC Glucose 172 H 150 H Lactic Acid Calcium Phosphorus Magnesium Ferritin Lactate Dehydrogenase C-Reactive Protein NT-Pro-B Natriuret Pep Total Protein Albumin Triglycerides Arterial Blood Glucose Urine pH Ur Specific [place] Coronavirus (PCR) 04/10/21 04/10/21 04/10/21 13:00 17:46 21:37 WBC RBC Hgb Hct MCV MCHC RDW Plt Count Lymph % (Auto) [place] % (Auto) Lymph # (Auto) [place] # (Auto) Seg Neutrophils % Seg Neuts % (Manual) Lymphocytes % (Manual) Monocytes % (Manual) Nucleated RBC % Seg Neutrophils # Seg Neutrophils # Man Lymphocytes # (Manual) Monocytes # (Manual) PT INR APTT D-Dimer Heparin Anti-Xa Level ABG pH POC ABG pCO2 POC ABG pO2 ABG pO2 ABG HCO3 ABG O2 Saturation ABG Base Excess ABG Hemoglobin ABG Oxyhemoglobin ABG Sodium ABG Potassium ABG Glucose Oxyhemoglobin Carboxyhemoglobin Sodium Potassium Chloride 96.4 L Carbon Dioxide 34 H BUN Creatinine 0.5 L Glucose 165 H POC Glucose 165 H 166 H Lactic Acid Calcium Phosphorus Magnesium Ferritin Lactate Dehydrogenase C-Reactive Protein NT-Pro-B Natriuret Pep Total Protein Albumin Triglycerides Arterial Blood Glucose Urine pH Ur Specific [place] Coronavirus (PCR) 04/10/21 04/11/21 04/11/21 23:56 04:30 05:39 WBC 11.5 H RBC 3.02 L Hgb 8.9 L Hct 27.8 L MCV MCHC RDW 16.0 H Plt Count 505 H Lymph % (Auto) [place] % (Auto) Lymph # (Auto) [place] # (Auto) Seg Neutrophils % Seg Neuts % (Manual) Lymphocytes % (Manual) Monocytes % (Manual) Nucleated RBC % Seg Neutrophils # Seg Neutrophils # Man Lymphocytes # (Manual) Monocytes # (Manual) PT INR APTT D-Dimer Heparin Anti-Xa Level ABG pH POC ABG pCO2 POC ABG pO2 ABG pO2 ABG HCO3 ABG O2 Saturation ABG Base Excess ABG Hemoglobin ABG Oxyhemoglobin ABG Sodium ABG Potassium ABG Glucose Oxyhemoglobin Carboxyhemoglobin Sodium Potassium Chloride Carbon Dioxide BUN Creatinine Glucose POC Glucose 156 H 164 H Lactic Acid Calcium Phosphorus Magnesium Ferritin Lactate Dehydrogenase C-Reactive Protein NT-Pro-B Natriuret Pep Total Protein Albumin Triglycerides Arterial Blood Glucose Urine pH Ur Specific [place] Coronavirus (PCR) 04/11/21 04/11/21 04/11/21 06:47 06:47 11:29 WBC RBC 3.35 L Hgb 9.8 L Hct 30.7 L MCV MCHC RDW 16.3 H Plt Count 520 H Lymph % (Auto) [place] % (Auto) Lymph # (Auto) [place] # (Auto) Seg Neutrophils % Seg Neuts % (Manual) 76.0 H Lymphocytes % (Manual) 10.0 L Monocytes % (Manual) Nucleated RBC % Seg Neutrophils # Seg Neutrophils # Man 8.3 H Lymphocytes # (Manual) 1.1 L Monocytes # (Manual) PT INR APTT D-Dimer Heparin Anti-Xa Level ABG pH POC ABG pCO2 POC ABG pO2 ABG pO2 ABG HCO3 ABG O2 Saturation ABG Base Excess ABG Hemoglobin ABG Oxyhemoglobin ABG Sodium ABG Potassium ABG Glucose Oxyhemoglobin Carboxyhemoglobin Sodium Potassium Chloride 97.7 L Carbon Dioxide 34 H BUN Creatinine 0.4 L Glucose 178 H POC Glucose 170 H Lactic Acid Calcium Phosphorus Magnesium Ferritin Lactate Dehydrogenase C-Reactive Protein NT-Pro-B Natriuret Pep Total Protein Albumin Triglycerides Arterial Blood Glucose Urine pH Ur Specific [place] Coronavirus (PCR) 04/11/21 04/11/21 04/11/21 18:17 18:17 18:17 WBC RBC 3.22 L Hgb 9.5 L Hct 29.8 L MCV MCHC RDW 16.0 H Plt Count Lymph % (Auto) [place] % (Auto) Lymph # (Auto) [place] # (Auto) Seg Neutrophils % Seg Neuts % (Manual) Lymphocytes % (Manual) Monocytes % (Manual) Nucleated RBC % Seg Neutrophils # Seg Neutrophils # Man Lymphocytes # (Manual) Monocytes # (Manual) PT INR APTT 61.1 H* D-Dimer Heparin Anti-Xa Level ABG pH POC ABG pCO2 POC ABG pO2 ABG pO2 ABG HCO3 ABG O2 Saturation ABG Base Excess ABG Hemoglobin ABG Oxyhemoglobin ABG Sodium ABG Potassium ABG Glucose Oxyhemoglobin Carboxyhemoglobin Sodium Potassium Chloride Carbon Dioxide BUN Creatinine 0.3 L Glucose POC Glucose Lactic Acid Calcium Phosphorus Magnesium Ferritin Lactate Dehydrogenase C-Reactive Protein NT-Pro-B Natriuret Pep Total Protein Albumin Triglycerides Arterial Blood Glucose Urine pH Ur Specific [place] Coronavirus (PCR) 04/11/21 04/12/21 04/12/21 18:25 00:19 05:11 WBC RBC 2.92 L Hgb 8.6 L Hct 26.9 L MCV MCHC RDW 16.3 H Plt Count 460 H Lymph % (Auto) [place] % (Auto) Lymph # (Auto) [place] # (Auto) Seg Neutrophils % Seg Neuts % (Manual) Lymphocytes % (Manual) Monocytes % (Manual) Nucleated RBC % Seg Neutrophils # Seg Neutrophils # Man Lymphocytes # (Manual) Monocytes # (Manual) PT INR APTT D-Dimer Heparin Anti-Xa Level ABG pH POC ABG pCO2 POC ABG pO2 ABG pO2 ABG HCO3 ABG O2 Saturation ABG Base Excess ABG Hemoglobin ABG Oxyhemoglobin ABG Sodium ABG Potassium ABG Glucose Oxyhemoglobin Carboxyhemoglobin Sodium Potassium Chloride Carbon Dioxide BUN Creatinine Glucose POC Glucose 167 H 128 H Lactic Acid Calcium Phosphorus Magnesium Ferritin Lactate Dehydrogenase C-Reactive Protein NT-Pro-B Natriuret Pep Total Protein Albumin Triglycerides Arterial Blood Glucose Urine pH Ur Specific [place] Coronavirus (PCR) 04/12/21 04/12/21 04/12/21 05:11 05:11 06:23 WBC RBC Hgb Hct MCV MCHC RDW Plt Count Lymph % (Auto) [place] % (Auto) Lymph # (Auto) [place] # (Auto) Seg Neutrophils % Seg Neuts % (Manual) Lymphocytes % (Manual) Monocytes % (Manual) Nucleated RBC % Seg Neutrophils # Seg Neutrophils # Man Lymphocytes # (Manual) Monocytes # (Manual) PT INR APTT D-Dimer Heparin Anti-Xa Level 1.03 H ABG pH POC ABG pCO2 POC ABG pO2 ABG pO2 ABG HCO3 ABG O2 Saturation ABG Base Excess ABG Hemoglobin ABG Oxyhemoglobin ABG Sodium ABG Potassium ABG Glucose Oxyhemoglobin Carboxyhemoglobin Sodium Potassium Chloride Carbon Dioxide 34 H BUN Creatinine 0.3 L Glucose 153 H POC Glucose 162 H Lactic Acid Calcium Phosphorus Magnesium Ferritin Lactate Dehydrogenase C-Reactive Protein NT-Pro-B Natriuret Pep Total Protein Albumin Triglycerides Arterial Blood Glucose Urine pH Ur Specific [place] Coronavirus (PCR) 04/12/21 04/12/21 04/12/21 09:45 11:08 15:56 WBC RBC Hgb Hct MCV MCHC RDW Plt Count Lymph % (Auto) [place] % (Auto) Lymph # (Auto) [place] # (Auto) Seg Neutrophils % Seg Neuts % (Manual) Lymphocytes % (Manual) Monocytes % (Manual) Nucleated RBC % Seg Neutrophils # Seg Neutrophils # Man Lymphocytes # (Manual) Monocytes # (Manual) PT INR APTT D-Dimer Heparin Anti-Xa Level ABG pH POC ABG pCO2 POC ABG pO2 ABG pO2 70.8 L ABG HCO3 41.0 H ABG O2 Saturation ABG Base Excess 13.7 H ABG Hemoglobin 8.3 L ABG Oxyhemoglobin ABG Sodium ABG Potassium ABG Glucose Oxyhemoglobin 94.0 L Carboxyhemoglobin Sodium Potassium Chloride Carbon Dioxide BUN Creatinine Glucose POC Glucose 174 H 146 H Lactic Acid Calcium Phosphorus Magnesium Ferritin Lactate Dehydrogenase C-Reactive Protein NT-Pro-B Natriuret Pep Total Protein Albumin Triglycerides Arterial Blood Glucose Urine pH Ur Specific [place] Coronavirus (PCR) 04/12/21 04/12/21 04/13/21 21:55 23:25 04:34 WBC 12.5 H RBC 2.97 L Hgb 8.9 L Hct 27.3 L MCV MCHC RDW 16.4 H Plt Count 470 H Lymph % (Auto) [place] % (Auto) Lymph # (Auto) [place] # (Auto) Seg Neutrophils % Seg Neuts % (Manual) Lymphocytes % (Manual) Monocytes % (Manual) Nucleated RBC % Seg Neutrophils # Seg Neutrophils # Man Lymphocytes # (Manual) Monocytes # (Manual) PT INR APTT D-Dimer Heparin Anti-Xa Level ABG pH POC ABG pCO2 POC ABG pO2 ABG pO2 ABG HCO3 ABG O2 Saturation ABG Base Excess ABG Hemoglobin ABG Oxyhemoglobin ABG Sodium ABG Potassium ABG Glucose Oxyhemoglobin Carboxyhemoglobin Sodium Potassium Chloride Carbon Dioxide BUN Creatinine Glucose POC Glucose 142 H 170 H Lactic Acid Calcium Phosphorus Magnesium Ferritin Lactate Dehydrogenase C-Reactive Protein NT-Pro-B Natriuret Pep Total Protein Albumin Triglycerides Arterial Blood Glucose Urine pH Ur Specific [place] Coronavirus (PCR) 04/13/21 04/13/21 04/13/21 04:34 05:17 11:14 WBC RBC Hgb Hct MCV MCHC RDW Plt Count Lymph % (Auto) [place] % (Auto) Lymph # (Auto) [place] # (Auto) Seg Neutrophils % Seg Neuts % (Manual) Lymphocytes % (Manual) Monocytes % (Manual) Nucleated RBC % Seg Neutrophils # Seg Neutrophils # Man Lymphocytes # (Manual) Monocytes # (Manual) PT INR APTT D-Dimer Heparin Anti-Xa Level ABG pH POC ABG pCO2 POC ABG pO2 ABG pO2 ABG HCO3 ABG O2 Saturation ABG Base Excess ABG Hemoglobin ABG Oxyhemoglobin ABG Sodium ABG Potassium ABG Glucose Oxyhemoglobin Carboxyhemoglobin Sodium Potassium Chloride 96.6 L Carbon Dioxide 41 H* D BUN Creatinine 0.3 L Glucose 171 H POC Glucose 141 H 149 H Lactic Acid Calcium Phosphorus Magnesium Ferritin Lactate Dehydrogenase C-Reactive Protein NT-Pro-B Natriuret Pep Total Protein Albumin Triglycerides Arterial Blood Glucose Urine pH Ur Specific [place] Coronavirus (PCR) 04/13/21 04/13/21 04/14/21 15:51 23:35 04:32 WBC 13.8 H RBC 2.64 L Hgb 8.0 L Hct 24.1 L MCV MCHC RDW 16.1 H Plt Count Lymph % (Auto) [place] % (Auto) Lymph # (Auto) [place] # (Auto) Seg Neutrophils % Seg Neuts % (Manual) Lymphocytes % (Manual) Monocytes % (Manual) Nucleated RBC % Seg Neutrophils # Seg Neutrophils # Man Lymphocytes # (Manual) Monocytes # (Manual) PT INR APTT D-Dimer Heparin Anti-Xa Level ABG pH POC ABG pCO2 POC ABG pO2 ABG pO2 ABG HCO3 ABG O2 Saturation ABG Base Excess ABG Hemoglobin ABG Oxyhemoglobin ABG Sodium ABG Potassium ABG Glucose Oxyhemoglobin Carboxyhemoglobin Sodium Potassium Chloride Carbon Dioxide BUN Creatinine Glucose POC Glucose 136 H 167 H Lactic Acid Calcium Phosphorus Magnesium Ferritin Lactate Dehydrogenase C-Reactive Protein NT-Pro-B Natriuret Pep Total Protein Albumin Triglycerides Arterial Blood Glucose Urine pH Ur Specific [place] Coronavirus (PCR) 04/14/21 04/14/21 04/14/21 04:32 05:18 11:03 WBC RBC Hgb Hct MCV MCHC RDW Plt Count Lymph % (Auto) [place] % (Auto) Lymph # (Auto) [place] # (Auto) Seg Neutrophils % Seg Neuts % (Manual) Lymphocytes % (Manual) Monocytes % (Manual) Nucleated RBC % Seg Neutrophils # Seg Neutrophils # Man Lymphocytes # (Manual) Monocytes # (Manual) PT INR APTT D-Dimer Heparin Anti-Xa Level ABG pH POC ABG pCO2 POC ABG pO2 ABG pO2 ABG HCO3 ABG O2 Saturation ABG Base Excess ABG Hemoglobin ABG Oxyhemoglobin ABG Sodium ABG Potassium ABG Glucose Oxyhemoglobin Carboxyhemoglobin Sodium Potassium Chloride 95.5 L Carbon Dioxide 38 H BUN Creatinine 0.4 L Glucose 141 H POC Glucose 140 H 143 H Lactic Acid Calcium Phosphorus Magnesium Ferritin Lactate Dehydrogenase C-Reactive Protein NT-Pro-B Natriuret Pep Total Protein Albumin Triglycerides Arterial Blood Glucose Urine pH Ur Specific [place] Coronavirus (PCR) 04/14/21 04/14/21 04/14/21 16:38 23:46 Unknown WBC RBC Hgb Hct MCV MCHC RDW Plt Count Lymph % (Auto) [place] % (Auto) Lymph # (Auto) [place] # (Auto) Seg Neutrophils % Seg Neuts % (Manual) Lymphocytes % (Manual) Monocytes % (Manual) Nucleated RBC % Seg Neutrophils # Seg Neutrophils # Man Lymphocytes # (Manual) Monocytes # (Manual) PT INR APTT D-Dimer Heparin Anti-Xa Level ABG pH POC ABG pCO2 POC ABG pO2 ABG pO2 ABG HCO3 ABG O2 Saturation ABG Base Excess ABG Hemoglobin ABG Oxyhemoglobin ABG Sodium ABG Potassium ABG Glucose Oxyhemoglobin Carboxyhemoglobin Sodium Potassium Chloride Carbon Dioxide BUN Creatinine Glucose POC Glucose 157 H 155 H Lactic Acid Calcium Phosphorus Magnesium Ferritin Lactate Dehydrogenase C-Reactive Protein NT-Pro-B Natriuret Pep Total Protein Albumin Triglycerides Arterial Blood Glucose Urine pH 8.0 H Ur Specific [place] Coronavirus (PCR) 04/15/21 04/15/21 04/15/21 04:44 04:44 05:52 WBC 15.8 H RBC 2.96 L Hgb 8.9 L Hct 27.1 L MCV MCHC RDW 16.5 H Plt Count 507 H Lymph % (Auto) [place] % (Auto) Lymph # (Auto) [place] # (Auto) Seg Neutrophils % Seg Neuts % (Manual) Lymphocytes % (Manual) Monocytes % (Manual) Nucleated RBC % Seg Neutrophils # Seg Neutrophils # Man Lymphocytes # (Manual) Monocytes # (Manual) PT INR APTT D-Dimer Heparin Anti-Xa Level ABG pH POC ABG pCO2 POC ABG pO2 ABG pO2 ABG HCO3 ABG O2 Saturation ABG Base Excess ABG Hemoglobin ABG Oxyhemoglobin ABG Sodium ABG Potassium ABG Glucose Oxyhemoglobin Carboxyhemoglobin Sodium Potassium Chloride 96.9 L Carbon Dioxide 38 H BUN Creatinine 0.4 L Glucose 163 H POC Glucose 167 H Lactic Acid Calcium Phosphorus Magnesium Ferritin Lactate Dehydrogenase C-Reactive Protein NT-Pro-B Natriuret Pep Total Protein Albumin Triglycerides Arterial Blood Glucose Urine pH Ur Specific [place] Coronavirus (PCR) 04/15/21 04/15/21 04/15/21 11:35 17:20 18:10 WBC RBC Hgb Hct MCV MCHC RDW Plt Count Lymph % (Auto) [place] % (Auto) Lymph # (Auto) [place] # (Auto) Seg Neutrophils % Seg Neuts % (Manual) Lymphocytes % (Manual) Monocytes % (Manual) Nucleated RBC % Seg Neutrophils # Seg Neutrophils # Man Lymphocytes # (Manual) Monocytes # (Manual) PT INR APTT D-Dimer Heparin Anti-Xa Level ABG pH 7.477 H POC ABG pCO2 POC ABG pO2 ABG pO2 ABG HCO3 40.6 H ABG O2 Saturation ABG Base Excess 15.2 H ABG Hemoglobin 9.0 L ABG Oxyhemoglobin ABG Sodium ABG Potassium ABG Glucose Oxyhemoglobin 94.7 L Carboxyhemoglobin Sodium Potassium Chloride Carbon Dioxide BUN Creatinine Glucose POC Glucose 179 H 165 H Lactic Acid Calcium Phosphorus Magnesium Ferritin Lactate Dehydrogenase C-Reactive Protein NT-Pro-B Natriuret Pep Total Protein Albumin Triglycerides Arterial Blood Glucose Urine pH Ur Specific [place] Coronavirus (PCR) 04/15/21 04/16/21 04/16/21 23:39 04:33 04:33 WBC 13.1 H RBC 3.26 L Hgb 9.5 L Hct 30.2 L MCV MCHC 31 L RDW 16.2 H Plt Count Lymph % (Auto) [place] % (Auto) Lymph # (Auto) [place] # (Auto) Seg Neutrophils % Seg Neuts % (Manual) Lymphocytes % (Manual) Monocytes % (Manual) Nucleated RBC % Seg Neutrophils # Seg Neutrophils # Man Lymphocytes # (Manual) Monocytes # (Manual) PT INR APTT D-Dimer Heparin Anti-Xa Level ABG pH POC ABG pCO2 POC ABG pO2 ABG pO2 ABG HCO3 ABG O2 Saturation ABG Base Excess ABG Hemoglobin ABG Oxyhemoglobin ABG Sodium ABG Potassium ABG Glucose Oxyhemoglobin Carboxyhemoglobin Sodium Potassium Chloride 95.8 L Carbon Dioxide 34 H BUN 24 H Creatinine 0.4 L Glucose 153 H POC Glucose 155 H Lactic Acid Calcium Phosphorus Magnesium 2.40 H Ferritin Lactate Dehydrogenase C-Reactive Protein NT-Pro-B Natriuret Pep Total Protein Albumin Triglycerides Arterial Blood Glucose Urine pH Ur Specific [place] Coronavirus (PCR) 04/16/21 04/16/21 04/16/21 04:55 05:29 11:02 WBC RBC Hgb Hct MCV MCHC RDW Plt Count Lymph % (Auto) [place] % (Auto) Lymph # (Auto) [place] # (Auto) Seg Neutrophils % Seg Neuts % (Manual) Lymphocytes % (Manual) Monocytes % (Manual) Nucleated RBC % Seg Neutrophils # Seg Neutrophils # Man Lymphocytes # (Manual) Monocytes # (Manual) PT INR APTT D-Dimer Heparin Anti-Xa Level ABG pH 7.487 H POC ABG pCO2 POC ABG pO2 ABG pO2 75.4 L ABG HCO3 40.6 H ABG O2 Saturation ABG Base Excess 15.3 H ABG Hemoglobin 8.9 L ABG Oxyhemoglobin ABG Sodium ABG Potassium ABG Glucose Oxyhemoglobin Carboxyhemoglobin Sodium Potassium Chloride Carbon Dioxide BUN Creatinine Glucose POC Glucose 168 H 170 H Lactic Acid Calcium Phosphorus Magnesium Ferritin Lactate Dehydrogenase C-Reactive Protein NT-Pro-B Natriuret Pep Total Protein Albumin Triglycerides Arterial Blood Glucose Urine pH Ur Specific [place] Coronavirus (PCR) 04/16/21 04/16/21 04/17/21 16:13 23:41 04:25 WBC 12.5 H RBC 3.00 L Hgb 8.9 L Hct 27.2 L MCV MCHC RDW 16.0 H Plt Count Lymph % (Auto) [place] % (Auto) Lymph # (Auto) [place] # (Auto) Seg Neutrophils % Seg Neuts % (Manual) Lymphocytes % (Manual) Monocytes % (Manual) Nucleated RBC % Seg Neutrophils # Seg Neutrophils # Man Lymphocytes # (Manual) Monocytes # (Manual) PT INR APTT D-Dimer Heparin Anti-Xa Level ABG pH POC ABG pCO2 POC ABG pO2 ABG pO2 ABG HCO3 ABG O2 Saturation ABG Base Excess ABG Hemoglobin ABG Oxyhemoglobin ABG Sodium ABG Potassium ABG Glucose Oxyhemoglobin Carboxyhemoglobin Sodium Potassium Chloride Carbon Dioxide BUN Creatinine Glucose POC Glucose 167 H 150 H Lactic Acid Calcium Phosphorus Magnesium Ferritin Lactate Dehydrogenase C-Reactive Protein NT-Pro-B Natriuret Pep Total Protein Albumin Triglycerides Arterial Blood Glucose Urine pH Ur Specific [place] Coronavirus (PCR) 04/17/21 04/17/21 04/17/21 04:25 05:23 11:18 WBC RBC Hgb Hct MCV MCHC RDW Plt Count Lymph % (Auto) [place] % (Auto) Lymph # (Auto) [place] # (Auto) Seg Neutrophils % Seg Neuts % (Manual) Lymphocytes % (Manual) Monocytes % (Manual) Nucleated RBC % Seg Neutrophils # Seg Neutrophils # Man Lymphocytes # (Manual) Monocytes # (Manual) PT INR APTT D-Dimer Heparin Anti-Xa Level ABG pH POC ABG pCO2 POC ABG pO2 ABG pO2 ABG HCO3 ABG O2 Saturation ABG Base Excess ABG Hemoglobin ABG Oxyhemoglobin ABG Sodium ABG Potassium ABG Glucose Oxyhemoglobin Carboxyhemoglobin Sodium 136 L Potassium Chloride 92.4 L Carbon Dioxide 36 H BUN 23 H Creatinine 0.4 L Glucose 145 H POC Glucose 128 H 163 H Lactic Acid Calcium Phosphorus Magnesium Ferritin Lactate Dehydrogenase C-Reactive Protein NT-Pro-B Natriuret Pep Total Protein Albumin Triglycerides Arterial Blood Glucose Urine pH Ur Specific [place] Coronavirus (PCR) 04/17/21 04/17/21 04/18/21 16:50 21:04 00:18 WBC RBC Hgb Hct MCV MCHC RDW Plt Count Lymph % (Auto) [place] % (Auto) Lymph # (Auto) [place] # (Auto) Seg Neutrophils % Seg Neuts % (Manual) Lymphocytes % (Manual) Monocytes % (Manual) Nucleated RBC % Seg Neutrophils # Seg Neutrophils # Man Lymphocytes # (Manual) Monocytes # (Manual) PT INR APTT D-Dimer Heparin Anti-Xa Level ABG pH POC ABG pCO2 POC ABG pO2 ABG pO2 ABG HCO3 ABG O2 Saturation ABG Base Excess ABG Hemoglobin ABG Oxyhemoglobin ABG Sodium ABG Potassium ABG Glucose Oxyhemoglobin Carboxyhemoglobin Sodium Potassium Chloride Carbon Dioxide BUN Creatinine Glucose POC Glucose 137 H 186 H 194 H Lactic Acid Calcium Phosphorus Magnesium Ferritin Lactate Dehydrogenase C-Reactive Protein NT-Pro-B Natriuret Pep Total Protein Albumin Triglycerides Arterial Blood Glucose Urine pH Ur Specific [place] Coronavirus (PCR) 04/18/21 04/18/21 04/18/21 04:20 04:20 05:21 WBC 14.2 H RBC 2.92 L Hgb 8.5 L Hct 26.3 L MCV MCHC RDW 16.1 H Plt Count Lymph % (Auto) [place] % (Auto) Lymph # (Auto) [place] # (Auto) Seg Neutrophils % Seg Neuts % (Manual) Lymphocytes % (Manual) Monocytes % (Manual) Nucleated RBC % Seg Neutrophils # Seg Neutrophils # Man Lymphocytes # (Manual) Monocytes # (Manual) PT INR APTT D-Dimer Heparin Anti-Xa Level ABG pH POC ABG pCO2 POC ABG pO2 ABG pO2 ABG HCO3 ABG O2 Saturation ABG Base Excess ABG Hemoglobin ABG Oxyhemoglobin ABG Sodium ABG Potassium ABG Glucose Oxyhemoglobin Carboxyhemoglobin Sodium Potassium Chloride 95.7 L Carbon Dioxide 33 H BUN 21 H Creatinine 0.3 L Glucose 120 H POC Glucose 107 H Lactic Acid Calcium Phosphorus Magnesium Ferritin Lactate Dehydrogenase C-Reactive Protein NT-Pro-B Natriuret Pep Total Protein Albumin Triglycerides Arterial Blood Glucose Urine pH Ur Specific [place] Coronavirus (PCR) 04/18/21 04/18/21 04/18/21 05:26 11:30 11:33 WBC RBC Hgb Hct MCV MCHC RDW Plt Count Lymph % (Auto) [place] % (Auto) Lymph # (Auto) [place] # (Auto) Seg Neutrophils % Seg Neuts % (Manual) Lymphocytes % (Manual) Monocytes % (Manual) Nucleated RBC % Seg Neutrophils # Seg Neutrophils # Man Lymphocytes # (Manual) Monocytes # (Manual) PT INR APTT D-Dimer Heparin Anti-Xa Level ABG pH 7.469 H POC ABG pCO2 POC ABG pO2 ABG pO2 108.9 H ABG HCO3 36.2 H ABG O2 Saturation ABG Base Excess 11.2 H ABG Hemoglobin 8.8 L ABG Oxyhemoglobin ABG Sodium ABG Potassium ABG Glucose Oxyhemoglobin Carboxyhemoglobin Sodium Potassium Chloride Carbon Dioxide BUN Creatinine Glucose POC Glucose 111 H 113 H Lactic Acid Calcium Phosphorus Magnesium Ferritin Lactate Dehydrogenase C-Reactive Protein NT-Pro-B Natriuret Pep Total Protein Albumin Triglycerides Arterial Blood Glucose Urine pH Ur Specific [place] Coronavirus (PCR) 04/18/21 04/18/21 04/19/21 16:53 23:26 04:26 WBC 13.6 H RBC 2.69 L Hgb 8.5 L Hct 24.4 L MCV MCHC 35 H RDW 15.9 H Plt Count Lymph % (Auto) [place] % (Auto) Lymph # (Auto) [place] # (Auto) Seg Neutrophils % Seg Neuts % (Manual) Lymphocytes % (Manual) Monocytes % (Manual) Nucleated RBC % Seg Neutrophils # Seg Neutrophils # Man Lymphocytes # (Manual) Monocytes # (Manual) PT INR APTT D-Dimer Heparin Anti-Xa Level ABG pH POC ABG pCO2 POC ABG pO2 ABG pO2 ABG HCO3 ABG O2 Saturation ABG Base Excess ABG Hemoglobin ABG Oxyhemoglobin ABG Sodium ABG Potassium ABG Glucose Oxyhemoglobin Carboxyhemoglobin Sodium Potassium Chloride Carbon Dioxide BUN Creatinine Glucose POC Glucose 139 H 137 H Lactic Acid Calcium Phosphorus Magnesium Ferritin Lactate Dehydrogenase C-Reactive Protein NT-Pro-B Natriuret Pep Total Protein Albumin Triglycerides Arterial Blood Glucose Urine pH Ur Specific [place] Coronavirus (PCR) 04/19/21 04/19/21 04/19/21 04:26 05:16 11:01 WBC RBC Hgb Hct MCV MCHC RDW Plt Count Lymph % (Auto) [place] % (Auto) Lymph # (Auto) [place] # (Auto) Seg Neutrophils % Seg Neuts % (Manual) Lymphocytes % (Manual) Monocytes % (Manual) Nucleated RBC % Seg Neutrophils # Seg Neutrophils # Man Lymphocytes # (Manual) Monocytes # (Manual) PT INR APTT D-Dimer Heparin Anti-Xa Level ABG pH POC ABG pCO2 POC ABG pO2 ABG pO2 ABG HCO3 ABG O2 Saturation ABG Base Excess ABG Hemoglobin ABG Oxyhemoglobin ABG Sodium ABG Potassium ABG Glucose Oxyhemoglobin Carboxyhemoglobin Sodium Potassium Chloride Carbon Dioxide BUN Creatinine 0.3 L Glucose 163 H POC Glucose 154 H 164 H Lactic Acid Calcium Phosphorus Magnesium Ferritin Lactate Dehydrogenase C-Reactive Protein NT-Pro-B Natriuret Pep Total Protein Albumin Triglycerides Arterial Blood Glucose Urine pH Ur Specific [place] Coronavirus (PCR) 04/19/21 04/19/21 04/19/21 15:55 21:00 23:13 WBC RBC Hgb Hct MCV MCHC RDW Plt Count Lymph % (Auto) [place] % (Auto) Lymph # (Auto) [place] # (Auto) Seg Neutrophils % Seg Neuts % (Manual) Lymphocytes % (Manual) Monocytes % (Manual) Nucleated RBC % Seg Neutrophils # Seg Neutrophils # Man Lymphocytes # (Manual) Monocytes # (Manual) PT INR APTT D-Dimer Heparin Anti-Xa Level ABG pH POC ABG pCO2 POC ABG pO2 ABG pO2 ABG HCO3 ABG O2 Saturation ABG Base Excess ABG Hemoglobin ABG Oxyhemoglobin ABG Sodium ABG Potassium ABG Glucose Oxyhemoglobin Carboxyhemoglobin Sodium Potassium Chloride Carbon Dioxide BUN Creatinine Glucose POC Glucose 138 H 151 H 147 H Lactic Acid Calcium Phosphorus Magnesium Ferritin Lactate Dehydrogenase C-Reactive Protein NT-Pro-B Natriuret Pep Total Protein Albumin Triglycerides Arterial Blood Glucose Urine pH Ur Specific [place] Coronavirus (PCR) 04/20/21 04/20/21 04/20/21 04:17 04:17 05:15 WBC 13.1 H RBC 2.94 L Hgb 8.8 L Hct 26.8 L MCV MCHC RDW 16.2 H Plt Count Lymph % (Auto) [place] % (Auto) Lymph # (Auto) [place] # (Auto) Seg Neutrophils % Seg Neuts % (Manual) Lymphocytes % (Manual) Monocytes % (Manual) Nucleated RBC % Seg Neutrophils # Seg Neutrophils # Man Lymphocytes # (Manual) Monocytes # (Manual) PT INR APTT D-Dimer Heparin Anti-Xa Level ABG pH POC ABG pCO2 POC ABG pO2 ABG pO2 ABG HCO3 ABG O2 Saturation ABG Base Excess ABG Hemoglobin ABG Oxyhemoglobin ABG Sodium ABG Potassium ABG Glucose Oxyhemoglobin Carboxyhemoglobin Sodium 135 L Potassium Chloride Carbon Dioxide BUN Creatinine 0.3 L Glucose 151 H POC Glucose 126 H Lactic Acid Calcium 8.3 L Phosphorus Magnesium Ferritin Lactate Dehydrogenase C-Reactive Protein NT-Pro-B Natriuret Pep Total Protein Albumin Triglycerides Arterial Blood Glucose Urine pH Ur Specific [place] Coronavirus (PCR) 04/20/21 04/20/21 04/20/21 11:03 16:01 23:54 WBC RBC Hgb Hct MCV MCHC RDW Plt Count Lymph % (Auto) [place] % (Auto) Lymph # (Auto) [place] # (Auto) Seg Neutrophils % Seg Neuts % (Manual) Lymphocytes % (Manual) Monocytes % (Manual) Nucleated RBC % Seg Neutrophils # Seg Neutrophils # Man Lymphocytes # (Manual) Monocytes # (Manual) PT INR APTT D-Dimer Heparin Anti-Xa Level ABG pH POC ABG pCO2 POC ABG pO2 ABG pO2 ABG HCO3 ABG O2 Saturation ABG Base Excess ABG Hemoglobin ABG Oxyhemoglobin ABG Sodium ABG Potassium ABG Glucose Oxyhemoglobin Carboxyhemoglobin Sodium Potassium Chloride Carbon Dioxide BUN Creatinine Glucose POC Glucose 154 H 152 H 145 H Lactic Acid Calcium Phosphorus Magnesium Ferritin Lactate Dehydrogenase C-Reactive Protein NT-Pro-B Natriuret Pep Total Protein Albumin Triglycerides Arterial Blood Glucose Urine pH Ur Specific [place] Coronavirus (PCR) 04/21/21 04/21/21 04/21/21 04:39 11:20 11:37 WBC RBC Hgb Hct MCV MCHC RDW Plt Count Lymph % (Auto) [place] % (Auto) Lymph # (Auto) [place] # (Auto) Seg Neutrophils % Seg Neuts % (Manual) Lymphocytes % (Manual) Monocytes % (Manual) Nucleated RBC % Seg Neutrophils # Seg Neutrophils # Man Lymphocytes # (Manual) Monocytes # (Manual) PT INR APTT D-Dimer Heparin Anti-Xa Level ABG pH 7.503 H POC ABG pCO2 POC ABG pO2 ABG pO2 ABG HCO3 ABG O2 Saturation ABG Base Excess ABG Hemoglobin 10.8 L ABG Oxyhemoglobin ABG Sodium ABG Potassium ABG Glucose Oxyhemoglobin Carboxyhemoglobin 0.1 L Sodium Potassium Chloride Carbon Dioxide BUN Creatinine 0.3 L Glucose 174 H POC Glucose 147 H Lactic Acid Calcium Phosphorus Magnesium Ferritin Lactate Dehydrogenase C-Reactive Protein NT-Pro-B Natriuret Pep Total Protein Albumin Triglycerides Arterial Blood Glucose Urine pH Ur Specific [place] Coronavirus (PCR) 04/21/21 04/21/21 04/21/21 11:48 12:11 17:56 WBC 14.5 H RBC 3.08 L Hgb 9.3 L Hct 28.2 L MCV MCHC RDW 16.5 H Plt Count Lymph % (Auto) [place] % (Auto) Lymph # (Auto) [place] # (Auto) Seg Neutrophils % Seg Neuts % (Manual) Lymphocytes % (Manual) Monocytes % (Manual) Nucleated RBC % Seg Neutrophils # Seg Neutrophils # Man Lymphocytes # (Manual) Monocytes # (Manual) PT INR APTT D-Dimer Heparin Anti-Xa Level ABG pH POC ABG pCO2 POC ABG pO2 ABG pO2 ABG HCO3 ABG O2 Saturation ABG Base Excess ABG Hemoglobin ABG Oxyhemoglobin ABG Sodium ABG Potassium ABG Glucose Oxyhemoglobin Carboxyhemoglobin Sodium Potassium Chloride Carbon Dioxide BUN Creatinine Glucose POC Glucose 154 H 138 H Lactic Acid Calcium Phosphorus Magnesium Ferritin Lactate Dehydrogenase C-Reactive Protein NT-Pro-B Natriuret Pep Total Protein Albumin Triglycerides Arterial Blood Glucose Urine pH Ur Specific [place] Coronavirus (PCR) 04/21/21 04/22/21 04/22/21 23:31 04:30 04:30 WBC 12.3 H RBC 3.20 L Hgb 9.5 L Hct 29.3 L MCV MCHC RDW 16.6 H Plt Count Lymph % (Auto) [place] % (Auto) Lymph # (Auto) [place] # (Auto) Seg Neutrophils % Seg Neuts % (Manual) Lymphocytes % (Manual) Monocytes % (Manual) Nucleated RBC % Seg Neutrophils # Seg Neutrophils # Man Lymphocytes # (Manual) Monocytes # (Manual) PT INR APTT D-Dimer Heparin Anti-Xa Level ABG pH POC ABG pCO2 POC ABG pO2 ABG pO2 ABG HCO3 ABG O2 Saturation ABG Base Excess ABG Hemoglobin ABG Oxyhemoglobin ABG Sodium ABG Potassium ABG Glucose Oxyhemoglobin Carboxyhemoglobin Sodium Potassium Chloride Carbon Dioxide BUN Creatinine 0.3 L Glucose 125 H POC Glucose 162 H Lactic Acid Calcium Phosphorus Magnesium Ferritin Lactate Dehydrogenase C-Reactive Protein NT-Pro-B Natriuret Pep Total Protein Albumin Triglycerides Arterial Blood Glucose Urine pH Ur Specific [place] Coronavirus (PCR) 04/22/21 04/22/21 04/22/21 05:17 12:03 17:22 WBC RBC Hgb Hct MCV MCHC RDW Plt Count Lymph % (Auto) [place] % (Auto) Lymph # (Auto) [place] # (Auto) Seg Neutrophils % Seg Neuts % (Manual) Lymphocytes % (Manual) Monocytes % (Manual) Nucleated RBC % Seg Neutrophils # Seg Neutrophils # Man Lymphocytes # (Manual) Monocytes # (Manual) PT INR APTT D-Dimer Heparin Anti-Xa Level ABG pH POC ABG pCO2 POC ABG pO2 ABG pO2 ABG HCO3 ABG O2 Saturation ABG Base Excess ABG Hemoglobin ABG Oxyhemoglobin ABG Sodium ABG Potassium ABG Glucose Oxyhemoglobin Carboxyhemoglobin Sodium Potassium Chloride Carbon Dioxide BUN Creatinine Glucose POC Glucose 112 H 156 H 133 H Lactic Acid Calcium Phosphorus Magnesium Ferritin Lactate Dehydrogenase C-Reactive Protein NT-Pro-B Natriuret Pep Total Protein Albumin Triglycerides Arterial Blood Glucose Urine pH Ur Specific [place] Coronavirus (PCR) 04/23/21 04/23/21 04/23/21 00:58 05:08 12:59 WBC RBC Hgb Hct MCV MCHC RDW Plt Count Lymph % (Auto) [place] % (Auto) Lymph # (Auto) [place] # (Auto) Seg Neutrophils % Seg Neuts % (Manual) Lymphocytes % (Manual) Monocytes % (Manual) Nucleated RBC % Seg Neutrophils # Seg Neutrophils # Man Lymphocytes # (Manual) Monocytes # (Manual) PT INR APTT D-Dimer Heparin Anti-Xa Level ABG pH POC ABG pCO2 POC ABG pO2 ABG pO2 ABG HCO3 ABG O2 Saturation ABG Base Excess ABG Hemoglobin ABG Oxyhemoglobin ABG Sodium ABG Potassium ABG Glucose Oxyhemoglobin Carboxyhemoglobin Sodium Potassium Chloride Carbon Dioxide BUN Creatinine Glucose POC Glucose 133 H 156 H 139 H Lactic Acid Calcium Phosphorus Magnesium Ferritin Lactate Dehydrogenase C-Reactive Protein NT-Pro-B Natriuret Pep Total Protein Albumin Triglycerides Arterial Blood Glucose Urine pH Ur Specific [place] Coronavirus (PCR) 04/23/21 04/23/21 04/24/21 18:12 23:41 04:00 WBC 12.9 H RBC 3.33 L Hgb 10.2 L Hct 30.1 L MCV MCHC RDW 16.6 H Plt Count Lymph % (Auto) [place] % (Auto) Lymph # (Auto) [place] # (Auto) Seg Neutrophils % Seg Neuts % (Manual) Lymphocytes % (Manual) Monocytes % (Manual) Nucleated RBC % Seg Neutrophils # Seg Neutrophils # Man Lymphocytes # (Manual) Monocytes # (Manual) PT INR APTT D-Dimer Heparin Anti-Xa Level ABG pH POC ABG pCO2 POC ABG pO2 ABG pO2 ABG HCO3 ABG O2 Saturation ABG Base Excess ABG Hemoglobin ABG Oxyhemoglobin ABG Sodium ABG Potassium ABG Glucose Oxyhemoglobin Carboxyhemoglobin Sodium Potassium Chloride Carbon Dioxide BUN Creatinine Glucose POC Glucose 148 H 127 H Lactic Acid Calcium Phosphorus Magnesium Ferritin Lactate Dehydrogenase C-Reactive Protein NT-Pro-B Natriuret Pep Total Protein Albumin Triglycerides Arterial Blood Glucose Urine pH Ur Specific [place] Coronavirus (PCR) 04/24/21 04/24/21 04/24/21 04:00 05:15 11:45 WBC RBC Hgb Hct MCV MCHC RDW Plt Count Lymph % (Auto) [place] % (Auto) Lymph # (Auto) [place] # (Auto) Seg Neutrophils % Seg Neuts % (Manual) Lymphocytes % (Manual) Monocytes % (Manual) Nucleated RBC % Seg Neutrophils # Seg Neutrophils # Man Lymphocytes # (Manual) Monocytes # (Manual) PT INR APTT D-Dimer Heparin Anti-Xa Level ABG pH POC ABG pCO2 POC ABG pO2 ABG pO2 ABG HCO3 ABG O2 Saturation ABG Base Excess ABG Hemoglobin ABG Oxyhemoglobin ABG Sodium ABG Potassium ABG Glucose Oxyhemoglobin Carboxyhemoglobin Sodium Potassium Chloride Carbon Dioxide BUN Creatinine 0.4 L Glucose 136 H POC Glucose 135 H 140 H Lactic Acid Calcium Phosphorus Magnesium Ferritin Lactate Dehydrogenase C-Reactive Protein NT-Pro-B Natriuret Pep Total Protein Albumin Triglycerides Arterial Blood Glucose Urine pH Ur Specific [place] Coronavirus (PCR) 04/24/21 04/24/21 04/24/21 16:06 18:26 23:48 WBC RBC Hgb Hct MCV MCHC RDW Plt Count Lymph % (Auto) [place] % (Auto) Lymph # (Auto) [place] # (Auto) Seg Neutrophils % Seg Neuts % (Manual) Lymphocytes % (Manual) Monocytes % (Manual) Nucleated RBC % Seg Neutrophils # Seg Neutrophils # Man Lymphocytes # (Manual) Monocytes # (Manual) PT INR APTT D-Dimer Heparin Anti-Xa Level ABG pH POC ABG pCO2 POC ABG pO2 ABG pO2 ABG HCO3 ABG O2 Saturation ABG Base Excess ABG Hemoglobin ABG Oxyhemoglobin ABG Sodium ABG Potassium ABG Glucose Oxyhemoglobin Carboxyhemoglobin Sodium Potassium Chloride Carbon Dioxide BUN Creatinine Glucose POC Glucose 141 H 141 H 129 H Lactic Acid Calcium Phosphorus Magnesium Ferritin Lactate Dehydrogenase C-Reactive Protein NT-Pro-B Natriuret Pep Total Protein Albumin Triglycerides Arterial Blood Glucose Urine pH Ur Specific [place] Coronavirus (PCR) 04/25/21 04/25/21 04/25/21 05:27 11:27 15:04 WBC RBC Hgb Hct MCV MCHC RDW Plt Count Lymph % (Auto) [place] % (Auto) Lymph # (Auto) [place] # (Auto) Seg Neutrophils % Seg Neuts % (Manual) Lymphocytes % (Manual) Monocytes % (Manual) Nucleated RBC % Seg Neutrophils # Seg Neutrophils # Man Lymphocytes # (Manual) Monocytes # (Manual) PT INR APTT D-Dimer Heparin Anti-Xa Level ABG pH POC ABG pCO2 POC ABG pO2 ABG pO2 ABG HCO3 ABG O2 Saturation ABG Base Excess ABG Hemoglobin ABG Oxyhemoglobin ABG Sodium ABG Potassium ABG Glucose Oxyhemoglobin Carboxyhemoglobin Sodium 135 L Potassium Chloride Carbon Dioxide BUN Creatinine 0.4 L Glucose 142 H POC Glucose 142 H 151 H Lactic Acid Calcium Phosphorus Magnesium Ferritin Lactate Dehydrogenase C-Reactive Protein NT-Pro-B Natriuret Pep Total Protein Albumin Triglycerides Arterial Blood Glucose Urine pH Ur Specific [place] Coronavirus (PCR) 04/25/21 04/26/21 04/26/21 23:34 05:36 07:51 WBC RBC Hgb Hct MCV MCHC RDW Plt Count Lymph % (Auto) [place] % (Auto) Lymph # (Auto) [place] # (Auto) Seg Neutrophils % Seg Neuts % (Manual) Lymphocytes % (Manual) Monocytes % (Manual) Nucleated RBC % Seg Neutrophils # Seg Neutrophils # Man Lymphocytes # (Manual) Monocytes # (Manual) PT INR APTT D-Dimer Heparin Anti-Xa Level ABG pH POC ABG pCO2 POC ABG pO2 ABG pO2 ABG HCO3 ABG O2 Saturation ABG Base Excess ABG Hemoglobin ABG Oxyhemoglobin ABG Sodium ABG Potassium ABG Glucose Oxyhemoglobin Carboxyhemoglobin Sodium Potassium Chloride Carbon Dioxide BUN Creatinine Glucose POC Glucose 127 H 135 H 129 H Lactic Acid Calcium Phosphorus Magnesium Ferritin Lactate Dehydrogenase C-Reactive Protein NT-Pro-B Natriuret Pep Total Protein Albumin Triglycerides Arterial Blood Glucose Urine pH Ur Specific [place] Coronavirus (PCR) 04/26/21 04/26/21 04/26/21 11:24 18:14 21:07 WBC RBC Hgb Hct MCV MCHC RDW Plt Count Lymph % (Auto) [place] % (Auto) Lymph # (Auto) [place] # (Auto) Seg Neutrophils % Seg Neuts % (Manual) Lymphocytes % (Manual) Monocytes % (Manual) Nucleated RBC % Seg Neutrophils # Seg Neutrophils # Man Lymphocytes # (Manual) Monocytes # (Manual) PT INR APTT D-Dimer Heparin Anti-Xa Level ABG pH POC ABG pCO2 POC ABG pO2 ABG pO2 ABG HCO3 ABG O2 Saturation ABG Base Excess ABG Hemoglobin ABG Oxyhemoglobin ABG Sodium ABG Potassium ABG Glucose Oxyhemoglobin Carboxyhemoglobin Sodium Potassium Chloride Carbon Dioxide BUN Creatinine Glucose POC Glucose 129 H 109 H 122 H Lactic Acid Calcium Phosphorus Magnesium Ferritin Lactate Dehydrogenase C-Reactive Protein NT-Pro-B Natriuret Pep Total Protein Albumin Triglycerides Arterial Blood Glucose Urine pH Ur Specific [place] Coronavirus (PCR) 04/27/21 04/27/21 04/27/21 06:13 11:03 16:32 WBC RBC Hgb Hct MCV MCHC RDW Plt Count Lymph % (Auto) [place] % (Auto) Lymph # (Auto) [place] # (Auto) Seg Neutrophils % Seg Neuts % (Manual) Lymphocytes % (Manual) Monocytes % (Manual) Nucleated RBC % Seg Neutrophils # Seg Neutrophils # Man Lymphocytes # (Manual) Monocytes # (Manual) PT INR APTT D-Dimer Heparin Anti-Xa Level ABG pH POC ABG pCO2 POC ABG pO2 ABG pO2 ABG HCO3 ABG O2 Saturation ABG Base Excess ABG Hemoglobin ABG Oxyhemoglobin ABG Sodium ABG Potassium ABG Glucose Oxyhemoglobin Carboxyhemoglobin Sodium Potassium Chloride Carbon Dioxide BUN Creatinine Glucose POC Glucose 112 H 134 H 136 H Lactic Acid Calcium Phosphorus Magnesium Ferritin Lactate Dehydrogenase C-Reactive Protein NT-Pro-B Natriuret Pep Total Protein Albumin Triglycerides Arterial Blood Glucose Urine pH Ur Specific [place] Coronavirus (PCR) 04/28/21 04/28/21 04/28/21 00:05 05:31 11:20 WBC RBC Hgb Hct MCV MCHC RDW Plt Count Lymph % (Auto) [place] % (Auto) Lymph # (Auto) [place] # (Auto) Seg Neutrophils % Seg Neuts % (Manual) Lymphocytes % (Manual) Monocytes % (Manual) Nucleated RBC % Seg Neutrophils # Seg Neutrophils # Man Lymphocytes # (Manual) Monocytes # (Manual) PT INR APTT D-Dimer Heparin Anti-Xa Level ABG pH POC ABG pCO2 POC ABG pO2 ABG pO2 ABG HCO3 ABG O2 Saturation ABG Base Excess ABG Hemoglobin ABG Oxyhemoglobin ABG Sodium ABG Potassium ABG Glucose Oxyhemoglobin Carboxyhemoglobin Sodium Potassium Chloride Carbon Dioxide BUN Creatinine Glucose POC Glucose 113 H 116 H 116 H Lactic Acid Calcium Phosphorus Magnesium Ferritin Lactate Dehydrogenase C-Reactive Protein NT-Pro-B Natriuret Pep Total Protein Albumin Triglycerides Arterial Blood Glucose Urine pH Ur Specific [place] Coronavirus (PCR) 04/28/21 04/29/21 04/29/21 23:36 05:03 05:03 WBC RBC 3.15 L Hgb 9.8 L Hct 29.1 L MCV MCHC RDW 17.6 H Plt Count Lymph % (Auto) [place] % (Auto) Lymph # (Auto) [place] # (Auto) Seg Neutrophils % Seg Neuts % (Manual) Lymphocytes % (Manual) Monocytes % (Manual) Nucleated RBC % Seg Neutrophils # Seg Neutrophils # Man Lymphocytes # (Manual) Monocytes # (Manual) PT INR APTT D-Dimer Heparin Anti-Xa Level ABG pH POC ABG pCO2 POC ABG pO2 ABG pO2 ABG HCO3 ABG O2 Saturation ABG Base Excess ABG Hemoglobin ABG Oxyhemoglobin ABG Sodium ABG Potassium ABG Glucose Oxyhemoglobin Carboxyhemoglobin Sodium 136 L Potassium Chloride Carbon Dioxide BUN 8 L Creatinine 0.3 L Glucose 115 H POC Glucose 120 H Lactic Acid Calcium Phosphorus Magnesium Ferritin Lactate Dehydrogenase C-Reactive Protein NT-Pro-B Natriuret Pep Total Protein Albumin Triglycerides Arterial Blood Glucose Urine pH Ur Specific [place] Coronavirus (PCR) 04/29/21 04/29/21 04/29/21 05:23 12:42 18:23 WBC RBC Hgb Hct MCV MCHC RDW Plt Count Lymph % (Auto) [place] % (Auto) Lymph # (Auto) [place] # (Auto) Seg Neutrophils % Seg Neuts % (Manual) Lymphocytes % (Manual) Monocytes % (Manual) Nucleated RBC % Seg Neutrophils # Seg Neutrophils # Man Lymphocytes # (Manual) Monocytes # (Manual) PT INR APTT D-Dimer Heparin Anti-Xa Level ABG pH POC ABG pCO2 POC ABG pO2 ABG pO2 ABG HCO3 ABG O2 Saturation ABG Base Excess ABG Hemoglobin ABG Oxyhemoglobin ABG Sodium ABG Potassium ABG Glucose Oxyhemoglobin Carboxyhemoglobin Sodium Potassium Chloride Carbon Dioxide BUN Creatinine Glucose POC Glucose 112 H 129 H 110 H Lactic Acid Calcium Phosphorus Magnesium Ferritin Lactate Dehydrogenase C-Reactive Protein NT-Pro-B Natriuret Pep Total Protein Albumin Triglycerides Arterial Blood Glucose Urine pH Ur Specific [place] Coronavirus (PCR) 04/29/21 04/30/21 04/30/21 22:14 06:12 11:34 WBC RBC Hgb Hct MCV MCHC RDW Plt Count Lymph % (Auto) [place] % (Auto) Lymph # (Auto) [place] # (Auto) Seg Neutrophils % Seg Neuts % (Manual) Lymphocytes % (Manual) Monocytes % (Manual) Nucleated RBC % Seg Neutrophils # Seg Neutrophils # Man Lymphocytes # (Manual) Monocytes # (Manual) PT INR APTT D-Dimer Heparin Anti-Xa Level ABG pH POC ABG pCO2 POC ABG pO2 ABG pO2 ABG HCO3 ABG O2 Saturation ABG Base Excess ABG Hemoglobin ABG Oxyhemoglobin ABG Sodium ABG Potassium ABG Glucose Oxyhemoglobin Carboxyhemoglobin Sodium Potassium Chloride Carbon Dioxide BUN Creatinine Glucose POC Glucose 113 H 117 H 129 H Lactic Acid Calcium Phosphorus Magnesium Ferritin Lactate Dehydrogenase C-Reactive Protein NT-Pro-B Natriuret Pep Total Protein Albumin Triglycerides Arterial Blood Glucose Urine pH Ur Specific [place] Coronavirus (PCR) 04/30/21 04/30/21 04/30/21 16:22 17:50 21:30 WBC RBC Hgb Hct MCV MCHC RDW Plt Count Lymph % (Auto) [place] % (Auto) Lymph # (Auto) [place] # (Auto) Seg Neutrophils % Seg Neuts % (Manual) Lymphocytes % (Manual) Monocytes % (Manual) Nucleated RBC % Seg Neutrophils # Seg Neutrophils # Man Lymphocytes # (Manual) Monocytes # (Manual) PT INR APTT D-Dimer Heparin Anti-Xa Level ABG pH 7.477 H POC ABG pCO2 POC ABG pO2 ABG pO2 ABG HCO3 28.7 H ABG O2 Saturation ABG Base Excess 4.9 H ABG Hemoglobin 11.5 L ABG Oxyhemoglobin ABG Sodium ABG Potassium ABG Glucose Oxyhemoglobin 94.8 L Carboxyhemoglobin Sodium Potassium Chloride Carbon Dioxide BUN Creatinine Glucose POC Glucose 136 H 114 H Lactic Acid Calcium Phosphorus Magnesium Ferritin Lactate Dehydrogenase C-Reactive Protein NT-Pro-B Natriuret Pep Total Protein Albumin Triglycerides Arterial Blood Glucose Urine pH Ur Specific [place] Coronavirus (PCR) 05/01/21 05/01/21 05/01/21 00:11 05:27 13:54 WBC RBC Hgb Hct MCV MCHC RDW Plt Count Lymph % (Auto) [place] % (Auto) Lymph # (Auto) [place] # (Auto) Seg Neutrophils % Seg Neuts % (Manual) Lymphocytes % (Manual) Monocytes % (Manual) Nucleated RBC % Seg Neutrophils # Seg Neutrophils # Man Lymphocytes # (Manual) Monocytes # (Manual) PT INR APTT D-Dimer Heparin Anti-Xa Level ABG pH POC ABG pCO2 POC ABG pO2 ABG pO2 ABG HCO3 ABG O2 Saturation ABG Base Excess ABG Hemoglobin ABG Oxyhemoglobin ABG Sodium ABG Potassium ABG Glucose Oxyhemoglobin Carboxyhemoglobin Sodium Potassium Chloride Carbon Dioxide BUN Creatinine Glucose POC Glucose 130 H 111 H 122 H Lactic Acid Calcium Phosphorus Magnesium Ferritin Lactate Dehydrogenase C-Reactive Protein NT-Pro-B Natriuret Pep Total Protein Albumin Triglycerides Arterial Blood Glucose Urine pH Ur Specific [place] Coronavirus (PCR) 05/01/21 17:36 WBC RBC Hgb Hct MCV MCHC RDW Plt Count Lymph % (Auto) [place] % (Auto) Lymph # (Auto) [place] # (Auto) Seg Neutrophils % Seg Neuts % (Manual) Lymphocytes % (Manual) Monocytes % (Manual) Nucleated RBC % Seg Neutrophils # Seg Neutrophils # Man Lymphocytes # (Manual) Monocytes # (Manual) PT INR APTT D-Dimer Heparin Anti-Xa Level ABG pH POC ABG pCO2 POC ABG pO2 ABG pO2 ABG HCO3 ABG O2 Saturation ABG Base Excess ABG Hemoglobin ABG Oxyhemoglobin ABG Sodium ABG Potassium ABG Glucose Oxyhemoglobin Carboxyhemoglobin Sodium Potassium Chloride Carbon Dioxide BUN Creatinine Glucose POC Glucose 131 H Lactic Acid Calcium Phosphorus Magnesium Ferritin Lactate Dehydrogenase C-Reactive Protein NT-Pro-B Natriuret Pep Total Protein Albumin Triglycerides Arterial Blood Glucose Urine pH Ur Specific [place] Coronavirus (PCR) Allied health notes reviewed: nursing
[2021-05-01] MEDS: INSULIN GLARGINE 100 UNITS/ML SUB-Q SCH (21:40)
[2021-05-02] MEDS: oxyCODONE 5 MG TAB FEEDTUBE PRN (02:07)
[2021-05-02] MEDS: hydrALAZINE 25 MG TAB FEEDTUBE SCH ×2 (04:59→13:03)
[2021-05-02] MEDS: INSULIN LISPRO 100 UNIT/ML SUB-Q SCH ×2 (05:07→12:21)
[2021-05-02 07:04] LABS: Blood Urea Nitrogen 9 mg/dL (9-20); Calcium 8.8 mg/dL (8.4-10.2); Hemolysis Index 48
[2021-05-02 07:06] LABS: BUN/Creatinine Ratio 30
[2021-05-02] MEDS: ARFORMOTEROL 15 MCG/2 ML NEBU IH SCH (08:50)
[2021-05-02 08:55] LABS: Hematocrit 32.8 % (35.5-45.6); Hemoglobin 10.8 gm/dl (11.8-15.2); Mean Corpuscular HGB Conc 33 % (32-34); Mean Corpuscular Volume 93 fl (84-94); Platelet Count 316 K/mm3 (140-440); Red Blood Count 3.51 M/mm3 (3.65-5.03); Red Cell Distribution Width 18.5 % (13.2-15.2)
--- NOTE | 2021-05-02 09:48 | Progress Note ---
Assessment and Plan Acute hypoxemic respiratory failure, on continuous noninvasive ventilation COVID-19 infection Bilateral pneumonia History of diabetes Obesity Hypertension Leukocytosis Possible venous thromboembolic phenomena with significantly elevated D-dimers DM II Elevated serum inflammatory markers to include CRP levels, ferritin and LDH - continue RTC t-piece as tolerated - PMV trials as tolerated - continue care as below otherwise; - continue to wean supplemental oxygen for target O2 sat's > 90% acutely - aspiration precautions - continue lung protective strategies - continue bronchodilators with routiformerly [facility] trach care and pulmonary hygiene per RT - wean per pulmonary driven protocols otherwise - continue accuchecks with glycemic control per SSI for target blood glucose < 180 mg/dL - avoid nephrotoxins, renally dose all medications - avoid benzodiazepine's, reduce the possibility of delirium - AB's per ID rec's - prn analgesia per pain score - Maintenance of sleep-wake cycle, avoid delirium - G.I. & VTE prophylaxis - PT/OT/ROM exercises - mobility protocols for pressure ulcer prophylaxis - Monitor hemodynamics closely - continue other care per attending / other consultants - discharge planning ongoing concurrently COVID SPECIFIC INTERVENTIONS - Remdesivir as per ID/Pulmonary developed protocols (received) - continue systemic steroids for severe COVID-19 infection empirically (Decadron) - follow repeat COVID tests results - zinc and vitamin C supplementation - Monitor inflammatory markers per facility protocol - ferritin, Ddimer, CRP - therapeutic anticoagulation per system Protocol based on d-dimer and clinical considerations (treatment dose) - contact and airborne isolation discontinued .... Re-evaluate in am & prn Subjective Date of service: 05/02/21 Principal diagnosis: COVID-19 infection; DM II; Bilateral pneumonia; Obesity; HTN Interval history: Patient is seen today for: Acute hypoxemic respiratory failure; COVID-19 infection; DM II; Bilateral pneumonia; Obesity; HTN Seen and examined at bedside; 24hour events reviewed; nursing and respiratory care staff consulted; no adverse overnight events reported to me; resting in bed; remains on RTC t-piece Objective Vital Signs - 12hr 05/01/21 05/01/21 05/01/21 22:00 23:00 23:47 Temperature Pulse Rate 85 87 86 Respiratory 22 23 Rate Blood Pressure 131/73 138/76 138/76 O2 Sat by Pulse 99 98 100 Oximetry O2 Sat by Pulse Oximetry [ Assessment] 05/01/21 05/02/21 05/02/21 23:48 00:00 01:00 Temperature 98.9 F Pulse Rate 87 87 Respiratory 22 23 Rate Blood Pressure 133/82 138/88 O2 Sat by Pulse 100 99 100 Oximetry O2 Sat by Pulse Oximetry [ Assessment] 05/02/21 05/02/21 05/02/21 01:20 02:00 02:10 Temperature Pulse Rate 89 90 Respiratory 23 Rate Blood Pressure 139/84 O2 Sat by Pulse 99 Oximetry O2 Sat by Pulse 98 Oximetry [ Assessment] 05/02/21 05/02/21 05/02/21 03:00 04:00 05:00 Temperature 98.8 F Pulse Rate 84 84 81 Respiratory 18 19 16 Rate Blood Pressure 126/74 124/72 131/76 O2 Sat by Pulse 99 100 97 Oximetry O2 Sat by Pulse Oximetry [ Assessment] 05/02/21 06:01 Temperature Pulse Rate 91 H Respiratory 18 Rate Blood Pressure 137/84 O2 Sat by Pulse 100 Oximetry O2 Sat by Pulse Oximetry [ Assessment] Constitutional: no acute distress, other (elderly obese male with mildly increased respiratory effort at rest) Eyes: non-icteric, other ENT: oropharynx moist, other (+ midline tracheostomy) Neck: supple, no lymphadenopathy, lymphadenopathy, no JVD, other (large circumference) Effort: mildly labored Ascultation: Bilateral: diminished breath sounds, rales, rhonchi Percussion: Bilateral: not dull Cardiovascular: regular rate and rhythm, other (tachycardia, S1,S2) Gastrointestinal: normoactive bowel sounds, soft, non-tender, non-distended (protuberant) Integumentary: normal Extremities: no cyanosis, pulses normal, no ischemia or petechiae, edema (upper extremities), other Neurologic: non-focal exam (grossly), pupils equal and round, CN II-XII normal, other (follows simple prompts) Psychiatric: mood appropriate, affect normal CBC and BMP: 05/02/21 08:50 05/02/21 06:36 ABG, PT/INR, D-dimer: ABG ABG pH 7.477 pH Units (7.350-7.450) H 04/30/21 17:50 POC ABG pCO2 43.0 mmHg (32.0-48.0) 04/21/21 11:37 ABG pCO2 39.7 mm Hg 04/30/21 17:50 POC ABG pO2 92.3 mmHg (83-108) 04/21/21 11:37 ABG pO2 87.0 mm Hg (80.0-90.0) 04/30/21 17:50 POC ABG HCO3 33.0 04/21/21 11:37 ABG O2 Saturation 97.2 % (95.0-99.0) 04/30/21 17:50 PT/INR, D-dimer PT 13.4 Sec. (12.2-14.9) 04/11/21 18:17 INR 0.92 (0.87-1.13) 04/11/21 18:17 D-Dimer 1359.12 ng/mlDDU (0-234) H 03/17/21 04:40 Abnormal lab findings: Abnormal Labs 03/08/21 03/08/21 03/08/21 20:24 20:24 20:24 WBC 22.6 H RBC 5.44 H Hgb 15.7 H Hct 49.2 H MCV MCHC RDW Plt Count Lymph % (Auto) [place] % (Auto) Lymph # (Auto) [place] # (Auto) Seg Neutrophils % Seg Neuts % (Manual) 83.0 H Lymphocytes % (Manual) 9.0 L Monocytes % (Manual) 8.0 H Nucleated RBC % Seg Neutrophils # Seg Neutrophils # Man 18.8 H Lymphocytes # (Manual) Monocytes # (Manual) 1.8 H PT 16.1 H INR 1.17 H APTT D-Dimer > 43044 H Heparin Anti-Xa Level ABG pH POC ABG pCO2 POC ABG pO2 ABG pO2 ABG HCO3 ABG O2 Saturation ABG Base Excess ABG Hemoglobin ABG Oxyhemoglobin ABG Sodium ABG Potassium ABG Glucose Oxyhemoglobin Carboxyhemoglobin Sodium 136 L Potassium Chloride 93.9 L Carbon Dioxide BUN 29 H Creatinine Glucose 208 H POC Glucose Lactic Acid Calcium Phosphorus Magnesium Ferritin Lactate Dehydrogenase 624 H C-Reactive Protein 18.00 H NT-Pro-B Natriuret Pep 1053 H Total Protein Albumin Triglycerides Arterial Blood Glucose Urine pH Ur Specific [place] Coronavirus (PCR) 03/08/21 03/08/21 03/09/21 20:24 20:24 04:10 WBC RBC Hgb Hct MCV MCHC RDW Plt Count Lymph % (Auto) [place] % (Auto) Lymph # (Auto) [place] # (Auto) Seg Neutrophils % Seg Neuts % (Manual) Lymphocytes % (Manual) Monocytes % (Manual) Nucleated RBC % Seg Neutrophils # Seg Neutrophils # Man Lymphocytes # (Manual) Monocytes # (Manual) PT INR APTT D-Dimer Heparin Anti-Xa Level ABG pH POC ABG pCO2 POC ABG pO2 ABG pO2 ABG HCO3 ABG O2 Saturation ABG Base Excess ABG Hemoglobin ABG Oxyhemoglobin ABG Sodium ABG Potassium ABG Glucose Oxyhemoglobin Carboxyhemoglobin Sodium Potassium Chloride Carbon Dioxide BUN Creatinine Glucose POC Glucose Lactic Acid 2.10 H* Calcium Phosphorus Magnesium Ferritin 877.5 H Lactate Dehydrogenase C-Reactive Protein NT-Pro-B Natriuret Pep Total Protein Albumin Triglycerides Arterial Blood Glucose Urine pH Ur Specific [place] 1.041 H Coronavirus (PCR) 03/09/21 03/09/21 03/09/21 07:46 08:00 13:01 WBC RBC Hgb Hct MCV MCHC RDW Plt Count Lymph % (Auto) [place] % (Auto) Lymph # (Auto) [place] # (Auto) Seg Neutrophils % Seg Neuts % (Manual) Lymphocytes % (Manual) Monocytes % (Manual) Nucleated RBC % Seg Neutrophils # Seg Neutrophils # Man Lymphocytes # (Manual) Monocytes # (Manual) PT INR APTT D-Dimer Heparin Anti-Xa Level ABG pH POC ABG pCO2 POC ABG pO2 ABG pO2 ABG HCO3 ABG O2 Saturation ABG Base Excess ABG Hemoglobin ABG Oxyhemoglobin ABG Sodium ABG Potassium ABG Glucose Oxyhemoglobin Carboxyhemoglobin Sodium Potassium Chloride Carbon Dioxide BUN Creatinine Glucose POC Glucose 191 H 182 H Lactic Acid Calcium Phosphorus Magnesium Ferritin Lactate Dehydrogenase C-Reactive Protein NT-Pro-B Natriuret Pep Total Protein Albumin Triglycerides Arterial Blood Glucose Urine pH Ur Specific [place] Coronavirus (PCR) Positive A 03/09/21 03/09/21 03/09/21 15:19 17:48 18:10 WBC RBC Hgb Hct MCV MCHC RDW Plt Count Lymph % (Auto) [place] % (Auto) Lymph # (Auto) [place] # (Auto) Seg Neutrophils % Seg Neuts % (Manual) Lymphocytes % (Manual) Monocytes % (Manual) Nucleated RBC % Seg Neutrophils # Seg Neutrophils # Man Lymphocytes # (Manual) Monocytes # (Manual) PT INR APTT D-Dimer Heparin Anti-Xa Level ABG pH POC ABG pCO2 POC ABG pO2 ABG pO2 47.3 L ABG HCO3 26.3 H ABG O2 Saturation 83.7 L ABG Base Excess ABG Hemoglobin ABG Oxyhemoglobin ABG Sodium ABG Potassium ABG Glucose Oxyhemoglobin 82.1 L Carboxyhemoglobin Sodium Potassium Chloride Carbon Dioxide BUN 29 H Creatinine Glucose 214 H POC Glucose 194 H Lactic Acid Calcium Phosphorus Magnesium Ferritin Lactate Dehydrogenase C-Reactive Protein NT-Pro-B Natriuret Pep Total Protein Albumin 3.4 L Triglycerides Arterial Blood Glucose Urine pH Ur Specific [place] Coronavirus (PCR) 03/09/21 03/10/21 03/10/21 20:40 04:29 04:29 WBC 20.6 H RBC 5.07 H Hgb Hct 46.2 H MCV MCHC RDW Plt Count Lymph % (Auto) [place] % (Auto) Lymph # (Auto) [place] # (Auto) Seg Neutrophils % Seg Neuts % (Manual) 94.0 H Lymphocytes % (Manual) 1.0 L Monocytes % (Manual) Nucleated RBC % 3.0 H Seg Neutrophils # Seg Neutrophils # Man 19.4 H Lymphocytes # (Manual) 0.2 L Monocytes # (Manual) 1.0 H PT INR APTT D-Dimer Heparin Anti-Xa Level ABG pH POC ABG pCO2 POC ABG pO2 ABG pO2 ABG HCO3 ABG O2 Saturation ABG Base Excess ABG Hemoglobin ABG Oxyhemoglobin ABG Sodium ABG Potassium ABG Glucose Oxyhemoglobin Carboxyhemoglobin Sodium Potassium Chloride Carbon Dioxide BUN 29 H Creatinine Glucose 188 H POC Glucose 176 H Lactic Acid Calcium Phosphorus Magnesium Ferritin Lactate Dehydrogenase C-Reactive Protein NT-Pro-B Natriuret Pep Total Protein Albumin 3.3 L Triglycerides Arterial Blood Glucose Urine pH Ur Specific [place] Coronavirus (PCR) 03/10/21 03/10/21 03/10/21 05:22 10:27 15:25 WBC RBC Hgb Hct MCV MCHC RDW Plt Count Lymph % (Auto) [place] % (Auto) Lymph # (Auto) [place] # (Auto) Seg Neutrophils % Seg Neuts % (Manual) Lymphocytes % (Manual) Monocytes % (Manual) Nucleated RBC % Seg Neutrophils # Seg Neutrophils # Man Lymphocytes # (Manual) Monocytes # (Manual) PT INR APTT D-Dimer Heparin Anti-Xa Level ABG pH 7.488 H 7.488 H POC ABG pCO2 POC ABG pO2 ABG pO2 47.7 L 50.5 L ABG HCO3 ABG O2 Saturation 86.2 L 87.9 L ABG Base Excess ABG Hemoglobin ABG Oxyhemoglobin ABG Sodium ABG Potassium ABG Glucose Oxyhemoglobin 84.6 L 86.2 L Carboxyhemoglobin Sodium Potassium Chloride Carbon Dioxide BUN Creatinine Glucose POC Glucose 155 H Lactic Acid Calcium Phosphorus Magnesium Ferritin Lactate Dehydrogenase C-Reactive Protein NT-Pro-B Natriuret Pep Total Protein Albumin Triglycerides Arterial Blood Glucose Urine pH Ur Specific [place] Coronavirus (PCR) 03/10/21 03/10/21 03/11/21 18:10 18:55 00:07 WBC RBC Hgb Hct MCV MCHC RDW Plt Count Lymph % (Auto) [place] % (Auto) Lymph # (Auto) [place] # (Auto) Seg Neutrophils % Seg Neuts % (Manual) Lymphocytes % (Manual) Monocytes % (Manual) Nucleated RBC % Seg Neutrophils # Seg Neutrophils # Man Lymphocytes # (Manual) Monocytes # (Manual) PT INR APTT D-Dimer Heparin Anti-Xa Level ABG pH 7.343 L POC ABG pCO2 POC ABG pO2 ABG pO2 60.4 L ABG HCO3 27.9 H ABG O2 Saturation 88.7 L ABG Base Excess ABG Hemoglobin ABG Oxyhemoglobin ABG Sodium ABG Potassium ABG Glucose Oxyhemoglobin 86.9 L Carboxyhemoglobin Sodium Potassium Chloride Carbon Dioxide BUN Creatinine Glucose POC Glucose 187 H 139 H Lactic Acid Calcium Phosphorus Magnesium Ferritin Lactate Dehydrogenase C-Reactive Protein NT-Pro-B Natriuret Pep Total Protein Albumin Triglycerides Arterial Blood Glucose Urine pH Ur Specific [place] Coronavirus (PCR) 03/11/21 03/11/21 03/11/21 02:09 04:28 08:06 WBC RBC Hgb Hct MCV MCHC RDW Plt Count Lymph % (Auto) [place] % (Auto) Lymph # (Auto) [place] # (Auto) Seg Neutrophils % Seg Neuts % (Manual) Lymphocytes % (Manual) Monocytes % (Manual) Nucleated RBC % Seg Neutrophils # Seg Neutrophils # Man Lymphocytes # (Manual) Monocytes # (Manual) PT INR APTT D-Dimer Heparin Anti-Xa Level ABG pH 7.277 L POC ABG pCO2 55.9 H POC ABG pO2 54.4 L ABG pO2 ABG HCO3 ABG O2 Saturation ABG Base Excess ABG Hemoglobin ABG Oxyhemoglobin 83.0 L ABG Sodium ABG Potassium 4.8 H ABG Glucose 180 H Oxyhemoglobin Carboxyhemoglobin Sodium Potassium Chloride Carbon Dioxide BUN 38 H Creatinine Glucose 249 H POC Glucose 278 H Lactic Acid Calcium Phosphorus Magnesium Ferritin Lactate Dehydrogenase C-Reactive Protein NT-Pro-B Natriuret Pep Total Protein Albumin 3.2 L Triglycerides Arterial Blood Glucose 180 H Urine pH Ur Specific [place] Coronavirus (PCR) 03/11/21 03/11/21 03/11/21 11:29 15:06 15:48 WBC RBC Hgb Hct MCV MCHC RDW Plt Count Lymph % (Auto) [place] % (Auto) Lymph # (Auto) [place] # (Auto) Seg Neutrophils % Seg Neuts % (Manual) Lymphocytes % (Manual) Monocytes % (Manual) Nucleated RBC % Seg Neutrophils # Seg Neutrophils # Man Lymphocytes # (Manual) Monocytes # (Manual) PT INR APTT D-Dimer Heparin Anti-Xa Level ABG pH 7.260 L POC ABG pCO2 POC ABG pO2 ABG pO2 53.5 L ABG HCO3 29.5 H ABG O2 Saturation 84.0 L ABG Base Excess ABG Hemoglobin ABG Oxyhemoglobin ABG Sodium ABG Potassium ABG Glucose Oxyhemoglobin 82.3 L Carboxyhemoglobin Sodium Potassium Chloride Carbon Dioxide BUN Creatinine Glucose POC Glucose 288 H 295 H Lactic Acid Calcium Phosphorus Magnesium Ferritin Lactate Dehydrogenase C-Reactive Protein NT-Pro-B Natriuret Pep Total Protein Albumin Triglycerides Arterial Blood Glucose Urine pH Ur Specific [place] Coronavirus (PCR) 03/12/21 03/12/21 03/12/21 00:01 05:24 08:03 WBC RBC Hgb Hct MCV MCHC RDW Plt Count Lymph % (Auto) [place] % (Auto) Lymph # (Auto) [place] # (Auto) Seg Neutrophils % Seg Neuts % (Manual) Lymphocytes % (Manual) Monocytes % (Manual) Nucleated RBC % Seg Neutrophils # Seg Neutrophils # Man Lymphocytes # (Manual) Monocytes # (Manual) PT INR APTT D-Dimer Heparin Anti-Xa Level ABG pH POC ABG pCO2 POC ABG pO2 ABG pO2 ABG HCO3 ABG O2 Saturation ABG Base Excess ABG Hemoglobin ABG Oxyhemoglobin ABG Sodium ABG Potassium ABG Glucose Oxyhemoglobin Carboxyhemoglobin Sodium 135 L Potassium Chloride Carbon Dioxide BUN 48 H Creatinine Glucose 358 H POC Glucose 304 H 310 H Lactic Acid Calcium Phosphorus Magnesium Ferritin Lactate Dehydrogenase C-Reactive Protein NT-Pro-B Natriuret Pep Total Protein 6.0 L Albumin 2.9 L Triglycerides Arterial Blood Glucose Urine pH Ur Specific [place] Coronavirus (PCR) 03/12/21 03/12/21 03/12/21 08:03 10:43 11:31 WBC 14.6 H RBC Hgb Hct MCV MCHC RDW Plt Count Lymph % (Auto) [place] % (Auto) Lymph # (Auto) [place] # (Auto) Seg Neutrophils % Seg Neuts % (Manual) Lymphocytes % (Manual) Monocytes % (Manual) Nucleated RBC % Seg Neutrophils # Seg Neutrophils # Man Lymphocytes # (Manual) Monocytes # (Manual) PT INR APTT D-Dimer Heparin Anti-Xa Level ABG pH 7.248 L POC ABG pCO2 POC ABG pO2 ABG pO2 73.7 L ABG HCO3 32.0 H ABG O2 Saturation 93.9 L ABG Base Excess ABG Hemoglobin ABG Oxyhemoglobin ABG Sodium ABG Potassium ABG Glucose Oxyhemoglobin 92.1 L Carboxyhemoglobin Sodium Potassium Chloride Carbon Dioxide BUN Creatinine Glucose POC Glucose 359 H Lactic Acid Calcium Phosphorus Magnesium Ferritin Lactate Dehydrogenase C-Reactive Protein NT-Pro-B Natriuret Pep Total Protein Albumin Triglycerides Arterial Blood Glucose Urine pH Ur Specific [place] Coronavirus (PCR) 03/12/21 03/12/21 03/13/21 17:20 21:54 00:02 WBC RBC Hgb Hct MCV MCHC RDW Plt Count Lymph % (Auto) [place] % (Auto) Lymph # (Auto) [place] # (Auto) Seg Neutrophils % Seg Neuts % (Manual) Lymphocytes % (Manual) Monocytes % (Manual) Nucleated RBC % Seg Neutrophils # Seg Neutrophils # Man Lymphocytes # (Manual) Monocytes # (Manual) PT INR APTT D-Dimer Heparin Anti-Xa Level ABG pH 7.238 L POC ABG pCO2 71.9 H POC ABG pO2 53.6 L ABG pO2 ABG HCO3 ABG O2 Saturation ABG Base Excess ABG Hemoglobin ABG Oxyhemoglobin 84.8 L ABG Sodium 134.2 L ABG Potassium 4.9 H ABG Glucose 306 H Oxyhemoglobin Carboxyhemoglobin Sodium Potassium Chloride Carbon Dioxide BUN Creatinine Glucose POC Glucose 374 H 308 H Lactic Acid Calcium Phosphorus Magnesium Ferritin Lactate Dehydrogenase C-Reactive Protein NT-Pro-B Natriuret Pep Total Protein Albumin Triglycerides Arterial Blood Glucose 306 H Urine pH Ur Specific [place] Coronavirus (PCR) 03/13/21 03/13/21 03/13/21 05:22 05:44 05:44 WBC 13.9 H RBC Hgb Hct MCV MCHC RDW Plt Count Lymph % (Auto) [place] % (Auto) Lymph # (Auto) [place] # (Auto) Seg Neutrophils % Seg Neuts % (Manual) Lymphocytes % (Manual) Monocytes % (Manual) Nucleated RBC % Seg Neutrophils # Seg Neutrophils # Man Lymphocytes # (Manual) Monocytes # (Manual) PT INR APTT D-Dimer 3567.97 H Heparin Anti-Xa Level ABG pH POC ABG pCO2 POC ABG pO2 ABG pO2 ABG HCO3 ABG O2 Saturation ABG Base Excess ABG Hemoglobin ABG Oxyhemoglobin ABG Sodium ABG Potassium ABG Glucose Oxyhemoglobin Carboxyhemoglobin Sodium Potassium Chloride Carbon Dioxide BUN Creatinine Glucose POC Glucose 316 H Lactic Acid Calcium Phosphorus Magnesium Ferritin Lactate Dehydrogenase C-Reactive Protein NT-Pro-B Natriuret Pep Total Protein Albumin Triglycerides Arterial Blood Glucose Urine pH Ur Specific [place] Coronavirus (PCR) 03/13/21 03/13/21 03/13/21 05:44 05:44 11:15 WBC RBC Hgb Hct MCV MCHC RDW Plt Count Lymph % (Auto) [place] % (Auto) Lymph # (Auto) [place] # (Auto) Seg Neutrophils % Seg Neuts % (Manual) Lymphocytes % (Manual) Monocytes % (Manual) Nucleated RBC % Seg Neutrophils # Seg Neutrophils # Man Lymphocytes # (Manual) Monocytes # (Manual) PT INR APTT D-Dimer Heparin Anti-Xa Level ABG pH 7.310 L POC ABG pCO2 POC ABG pO2 ABG pO2 52.3 L ABG HCO3 34.1 H ABG O2 Saturation 86.8 L ABG Base Excess 5.5 H ABG Hemoglobin 13.8 L ABG Oxyhemoglobin ABG Sodium ABG Potassium ABG Glucose Oxyhemoglobin 85.1 L Carboxyhemoglobin Sodium Potassium Chloride Carbon Dioxide BUN Creatinine Glucose POC Glucose Lactic Acid Calcium Phosphorus Magnesium Ferritin 858.7 H Lactate Dehydrogenase 348 H C-Reactive Protein 2.80 H NT-Pro-B Natriuret Pep Total Protein Albumin Triglycerides Arterial Blood Glucose Urine pH Ur Specific [place] Coronavirus (PCR) 03/13/21 03/13/21 03/13/21 11:21 15:47 19:23 WBC RBC Hgb Hct MCV MCHC RDW Plt Count Lymph % (Auto) [place] % (Auto) Lymph # (Auto) [place] # (Auto) Seg Neutrophils % Seg Neuts % (Manual) Lymphocytes % (Manual) Monocytes % (Manual) Nucleated RBC % Seg Neutrophils # Seg Neutrophils # Man Lymphocytes # (Manual) Monocytes # (Manual) PT INR APTT D-Dimer Heparin Anti-Xa Level ABG pH POC ABG pCO2 POC ABG pO2 ABG pO2 ABG HCO3 ABG O2 Saturation ABG Base Excess ABG Hemoglobin ABG Oxyhemoglobin ABG Sodium ABG Potassium ABG Glucose Oxyhemoglobin Carboxyhemoglobin Sodium 136 L Potassium 5.9 H Chloride Carbon Dioxide BUN 50 H Creatinine Glucose 397 H POC Glucose 322 H 317 H Lactic Acid Calcium Phosphorus Magnesium Ferritin Lactate Dehydrogenase C-Reactive Protein NT-Pro-B Natriuret Pep Total Protein Albumin Triglycerides Arterial Blood Glucose Urine pH Ur Specific [place] Coronavirus (PCR) 03/13/21 03/14/21 03/14/21 23:46 05:32 05:50 WBC 11.6 H RBC Hgb Hct MCV MCHC RDW Plt Count Lymph % (Auto) [place] % (Auto) Lymph # (Auto) [place] # (Auto) Seg Neutrophils % Seg Neuts % (Manual) Lymphocytes % (Manual) Monocytes % (Manual) Nucleated RBC % Seg Neutrophils # Seg Neutrophils # Man Lymphocytes # (Manual) Monocytes # (Manual) PT INR APTT D-Dimer Heparin Anti-Xa Level ABG pH POC ABG pCO2 POC ABG pO2 ABG pO2 ABG HCO3 ABG O2 Saturation ABG Base Excess ABG Hemoglobin ABG Oxyhemoglobin ABG Sodium ABG Potassium ABG Glucose Oxyhemoglobin Carboxyhemoglobin Sodium Potassium Chloride Carbon Dioxide BUN Creatinine Glucose POC Glucose 332 H 316 H Lactic Acid Calcium Phosphorus Magnesium Ferritin Lactate Dehydrogenase C-Reactive Protein NT-Pro-B Natriuret Pep Total Protein Albumin Triglycerides Arterial Blood Glucose Urine pH Ur Specific [place] Coronavirus (PCR) 03/14/21 03/14/21 03/14/21 05:50 11:33 16:53 WBC RBC Hgb Hct MCV MCHC RDW Plt Count Lymph % (Auto) [place] % (Auto) Lymph # (Auto) [place] # (Auto) Seg Neutrophils % Seg Neuts % (Manual) Lymphocytes % (Manual) Monocytes % (Manual) Nucleated RBC % Seg Neutrophils # Seg Neutrophils # Man Lymphocytes # (Manual) Monocytes # (Manual) PT INR APTT D-Dimer Heparin Anti-Xa Level ABG pH POC ABG pCO2 POC ABG pO2 ABG pO2 ABG HCO3 ABG O2 Saturation ABG Base Excess ABG Hemoglobin ABG Oxyhemoglobin ABG Sodium ABG Potassium ABG Glucose Oxyhemoglobin Carboxyhemoglobin Sodium Potassium 5.9 H Chloride Carbon Dioxide 31 H BUN 48 H Creatinine Glucose 380 H POC Glucose 315 H 235 H Lactic Acid Calcium Phosphorus Magnesium 3.40 H Ferritin Lactate Dehydrogenase C-Reactive Protein NT-Pro-B Natriuret Pep Total Protein Albumin Triglycerides Arterial Blood Glucose Urine pH Ur Specific [place] Coronavirus (PCR) 03/14/21 03/14/21 03/15/21 18:34 23:27 01:22 WBC RBC Hgb Hct 46.3 H MCV MCHC RDW Plt Count Lymph % (Auto) [place] % (Auto) Lymph # (Auto) [place] # (Auto) Seg Neutrophils % Seg Neuts % (Manual) Lymphocytes % (Manual) Monocytes % (Manual) Nucleated RBC % Seg Neutrophils # Seg Neutrophils # Man Lymphocytes # (Manual) Monocytes # (Manual) PT INR APTT D-Dimer Heparin Anti-Xa Level ABG pH POC ABG pCO2 POC ABG pO2 ABG pO2 ABG HCO3 ABG O2 Saturation ABG Base Excess ABG Hemoglobin ABG Oxyhemoglobin ABG Sodium ABG Potassium ABG Glucose Oxyhemoglobin Carboxyhemoglobin Sodium 146 H Potassium Chloride Carbon Dioxide 34 H BUN 49 H Creatinine Glucose 285 H POC Glucose 203 H Lactic Acid Calcium Phosphorus Magnesium Ferritin Lactate Dehydrogenase C-Reactive Protein NT-Pro-B Natriuret Pep Total Protein Albumin Triglycerides Arterial Blood Glucose Urine pH Ur Specific [place] Coronavirus (PCR) 03/15/21 03/15/21 03/15/21 04:00 06:06 06:06 WBC RBC Hgb Hct MCV MCHC RDW Plt Count Lymph % (Auto) [place] % (Auto) Lymph # (Auto) [place] # (Auto) Seg Neutrophils % Seg Neuts % (Manual) Lymphocytes % (Manual) Monocytes % (Manual) Nucleated RBC % Seg Neutrophils # Seg Neutrophils # Man Lymphocytes # (Manual) Monocytes # (Manual) PT INR APTT D-Dimer 1781.79 H Heparin Anti-Xa Level ABG pH POC ABG pCO2 POC ABG pO2 ABG pO2 ABG HCO3 ABG O2 Saturation ABG Base Excess ABG Hemoglobin ABG Oxyhemoglobin ABG Sodium ABG Potassium ABG Glucose Oxyhemoglobin Carboxyhemoglobin Sodium 148 H Potassium 5.7 H D Chloride 108.0 H Carbon Dioxide 31 H BUN 46 H Creatinine Glucose 139 H POC Glucose Lactic Acid Calcium Phosphorus 4.80 H D Magnesium 3.00 H Ferritin 976.4 H Lactate Dehydrogenase 630 H C-Reactive Protein NT-Pro-B Natriuret Pep Total Protein Albumin Triglycerides Arterial Blood Glucose Urine pH Ur Specific [place] Coronavirus (PCR) 03/15/21 03/15/21 03/15/21 11:56 14:05 17:09 WBC RBC Hgb Hct MCV MCHC RDW Plt Count Lymph % (Auto) [place] % (Auto) Lymph # (Auto) [place] # (Auto) Seg Neutrophils % Seg Neuts % (Manual) Lymphocytes % (Manual) Monocytes % (Manual) Nucleated RBC % Seg Neutrophils # Seg Neutrophils # Man Lymphocytes # (Manual) Monocytes # (Manual) PT INR APTT D-Dimer Heparin Anti-Xa Level ABG pH POC ABG pCO2 POC ABG pO2 ABG pO2 52.1 L ABG HCO3 36.6 H ABG O2 Saturation 87.6 L ABG Base Excess 9.5 H ABG Hemoglobin ABG Oxyhemoglobin ABG Sodium ABG Potassium ABG Glucose Oxyhemoglobin 85.7 L Carboxyhemoglobin Sodium Potassium Chloride Carbon Dioxide BUN Creatinine Glucose POC Glucose 219 H 263 H Lactic Acid Calcium Phosphorus Magnesium Ferritin Lactate Dehydrogenase C-Reactive Protein NT-Pro-B Natriuret Pep Total Protein Albumin Triglycerides Arterial Blood Glucose Urine pH Ur Specific [place] Coronavirus (PCR) 03/16/21 03/16/21 03/16/21 00:32 04:11 04:11 WBC 11.9 H RBC Hgb Hct MCV MCHC 30 L RDW Plt Count Lymph % (Auto) [place] % (Auto) Lymph # (Auto) [place] # (Auto) Seg Neutrophils % Seg Neuts % (Manual) Lymphocytes % (Manual) Monocytes % (Manual) Nucleated RBC % Seg Neutrophils # Seg Neutrophils # Man Lymphocytes # (Manual) Monocytes # (Manual) PT INR APTT D-Dimer Heparin Anti-Xa Level ABG pH POC ABG pCO2 POC ABG pO2 ABG pO2 ABG HCO3 ABG O2 Saturation ABG Base Excess ABG Hemoglobin ABG Oxyhemoglobin ABG Sodium ABG Potassium ABG Glucose Oxyhemoglobin Carboxyhemoglobin Sodium 151 H Potassium Chloride Carbon Dioxide 35 H BUN 48 H Creatinine Glucose 152 H POC Glucose 165 H Lactic Acid Calcium Phosphorus Magnesium Ferritin Lactate Dehydrogenase C-Reactive Protein NT-Pro-B Natriuret Pep Total Protein Albumin Triglycerides Arterial Blood Glucose Urine pH Ur Specific [place] Coronavirus (PCR) 03/16/21 03/16/21 03/16/21 04:11 05:26 11:35 WBC RBC Hgb Hct MCV MCHC RDW Plt Count Lymph % (Auto) [place] % (Auto) Lymph # (Auto) [place] # (Auto) Seg Neutrophils % Seg Neuts % (Manual) Lymphocytes % (Manual) Monocytes % (Manual) Nucleated RBC % Seg Neutrophils # Seg Neutrophils # Man Lymphocytes # (Manual) Monocytes # (Manual) PT INR APTT D-Dimer Heparin Anti-Xa Level ABG pH POC ABG pCO2 POC ABG pO2 ABG pO2 ABG HCO3 ABG O2 Saturation ABG Base Excess ABG Hemoglobin ABG Oxyhemoglobin ABG Sodium ABG Potassium ABG Glucose Oxyhemoglobin Carboxyhemoglobin Sodium Potassium Chloride Carbon Dioxide BUN Creatinine Glucose POC Glucose 162 H 187 H Lactic Acid Calcium Phosphorus Magnesium Ferritin Lactate Dehydrogenase C-Reactive Protein NT-Pro-B Natriuret Pep Total Protein Albumin Triglycerides 267 H Arterial Blood Glucose Urine pH Ur Specific [place] Coronavirus (PCR) 03/16/21 03/16/21 03/16/21 17:29 22:25 23:22 WBC RBC Hgb Hct MCV MCHC RDW Plt Count Lymph % (Auto) [place] % (Auto) Lymph # (Auto) [place] # (Auto) Seg Neutrophils % Seg Neuts % (Manual) Lymphocytes % (Manual) Monocytes % (Manual) Nucleated RBC % Seg Neutrophils # Seg Neutrophils # Man Lymphocytes # (Manual) Monocytes # (Manual) PT INR APTT D-Dimer Heparin Anti-Xa Level ABG pH POC ABG pCO2 POC ABG pO2 ABG pO2 ABG HCO3 ABG O2 Saturation ABG Base Excess ABG Hemoglobin ABG Oxyhemoglobin ABG Sodium ABG Potassium ABG Glucose Oxyhemoglobin Carboxyhemoglobin Sodium Potassium Chloride Carbon Dioxide BUN Creatinine Glucose POC Glucose 237 H 165 H 189 H Lactic Acid Calcium Phosphorus Magnesium Ferritin Lactate Dehydrogenase C-Reactive Protein NT-Pro-B Natriuret Pep Total Protein Albumin Triglycerides Arterial Blood Glucose Urine pH Ur Specific [place] Coronavirus (PCR) 03/17/21 03/17/21 03/17/21 04:40 04:40 04:40 WBC 14.1 H RBC Hgb Hct MCV MCHC RDW 15.3 H Plt Count Lymph % (Auto) 12.6 L [place] % (Auto) 11.3 H Lymph # (Auto) [place] # (Auto) 1.6 H Seg Neutrophils % 74.9 H Seg Neuts % (Manual) Lymphocytes % (Manual) Monocytes % (Manual) Nucleated RBC % Seg Neutrophils # 10.5 H Seg Neutrophils # Man Lymphocytes # (Manual) Monocytes # (Manual) PT INR APTT D-Dimer 1359.12 H Heparin Anti-Xa Level ABG pH POC ABG pCO2 POC ABG pO2 ABG pO2 ABG HCO3 ABG O2 Saturation ABG Base Excess ABG Hemoglobin ABG Oxyhemoglobin ABG Sodium ABG Potassium ABG Glucose Oxyhemoglobin Carboxyhemoglobin Sodium 148 H Potassium Chloride 107.5 H Carbon Dioxide 33 H BUN 42 H Creatinine Glucose 183 H POC Glucose Lactic Acid Calcium Phosphorus Magnesium 2.70 H Ferritin Lactate Dehydrogenase C-Reactive Protein NT-Pro-B Natriuret Pep Total Protein Albumin Triglycerides Arterial Blood Glucose Urine pH Ur Specific [place] Coronavirus (PCR) 03/17/21 03/17/21 03/17/21 05:53 11:05 11:51 WBC RBC Hgb Hct MCV MCHC RDW Plt Count Lymph % (Auto) [place] % (Auto) Lymph # (Auto) [place] # (Auto) Seg Neutrophils % Seg Neuts % (Manual) Lymphocytes % (Manual) Monocytes % (Manual) Nucleated RBC % Seg Neutrophils # Seg Neutrophils # Man Lymphocytes # (Manual) Monocytes # (Manual) PT INR APTT D-Dimer Heparin Anti-Xa Level ABG pH POC ABG pCO2 POC ABG pO2 ABG pO2 ABG HCO3 35.7 H ABG O2 Saturation ABG Base Excess 8.7 H ABG Hemoglobin ABG Oxyhemoglobin ABG Sodium ABG Potassium ABG Glucose Oxyhemoglobin 94.2 L Carboxyhemoglobin Sodium Potassium Chloride Carbon Dioxide BUN Creatinine Glucose POC Glucose 176 H 197 H Lactic Acid Calcium Phosphorus Magnesium Ferritin Lactate Dehydrogenase C-Reactive Protein NT-Pro-B Natriuret Pep Total Protein Albumin Triglycerides Arterial Blood Glucose Urine pH Ur Specific [place] Coronavirus (PCR) 03/17/21 03/17/21 03/17/21 16:54 21:10 23:33 WBC RBC Hgb Hct MCV MCHC RDW Plt Count Lymph % (Auto) [place] % (Auto) Lymph # (Auto) [place] # (Auto) Seg Neutrophils % Seg Neuts % (Manual) Lymphocytes % (Manual) Monocytes % (Manual) Nucleated RBC % Seg Neutrophils # Seg Neutrophils # Man Lymphocytes # (Manual) Monocytes # (Manual) PT INR APTT D-Dimer Heparin Anti-Xa Level ABG pH POC ABG pCO2 POC ABG pO2 ABG pO2 ABG HCO3 ABG O2 Saturation ABG Base Excess ABG Hemoglobin ABG Oxyhemoglobin ABG Sodium ABG Potassium ABG Glucose Oxyhemoglobin Carboxyhemoglobin Sodium Potassium Chloride Carbon Dioxide BUN Creatinine Glucose POC Glucose 135 H 160 H 138 H Lactic Acid Calcium Phosphorus Magnesium Ferritin Lactate Dehydrogenase C-Reactive Protein NT-Pro-B Natriuret Pep Total Protein Albumin Triglycerides Arterial Blood Glucose Urine pH Ur Specific [place] Coronavirus (PCR) 03/18/21 03/18/21 03/18/21 04:18 04:50 05:43 WBC RBC Hgb Hct MCV MCHC RDW Plt Count Lymph % (Auto) [place] % (Auto) Lymph # (Auto) [place] # (Auto) Seg Neutrophils % Seg Neuts % (Manual) Lymphocytes % (Manual) Monocytes % (Manual) Nucleated RBC % Seg Neutrophils # Seg Neutrophils # Man Lymphocytes # (Manual) Monocytes # (Manual) PT INR APTT D-Dimer Heparin Anti-Xa Level ABG pH POC ABG pCO2 POC ABG pO2 ABG pO2 59.8 L ABG HCO3 36.5 H ABG O2 Saturation 90.7 L ABG Base Excess 9.4 H ABG Hemoglobin 12.0 L ABG Oxyhemoglobin ABG Sodium ABG Potassium ABG Glucose Oxyhemoglobin 88.9 L Carboxyhemoglobin Sodium Potassium Chloride 107.2 H Carbon Dioxide 34 H BUN 38 H Creatinine 0.7 L Glucose 136 H POC Glucose 128 H Lactic Acid Calcium Phosphorus Magnesium Ferritin Lactate Dehydrogenase C-Reactive Protein NT-Pro-B Natriuret Pep Total Protein Albumin Triglycerides Arterial Blood Glucose Urine pH Ur Specific [place] Coronavirus (PCR) 03/18/21 03/18/21 03/18/21 11:20 17:35 23:35 WBC RBC Hgb Hct MCV MCHC RDW Plt Count Lymph % (Auto) [place] % (Auto) Lymph # (Auto) [place] # (Auto) Seg Neutrophils % Seg Neuts % (Manual) Lymphocytes % (Manual) Monocytes % (Manual) Nucleated RBC % Seg Neutrophils # Seg Neutrophils # Man Lymphocytes # (Manual) Monocytes # (Manual) PT INR APTT D-Dimer Heparin Anti-Xa Level ABG pH POC ABG pCO2 POC ABG pO2 ABG pO2 70.7 L ABG HCO3 33.6 H ABG O2 Saturation ABG Base Excess 8.0 H ABG Hemoglobin ABG Oxyhemoglobin ABG Sodium ABG Potassium ABG Glucose Oxyhemoglobin 93.7 L Carboxyhemoglobin Sodium Potassium Chloride Carbon Dioxide BUN Creatinine Glucose POC Glucose 189 H 144 H Lactic Acid Calcium Phosphorus Magnesium Ferritin Lactate Dehydrogenase C-Reactive Protein NT-Pro-B Natriuret Pep Total Protein Albumin Triglycerides Arterial Blood Glucose Urine pH Ur Specific [place] Coronavirus (PCR) 03/19/21 03/19/21 03/19/21 02:35 04:20 04:20 WBC 14.0 H RBC Hgb Hct MCV MCHC RDW Plt Count Lymph % (Auto) [place] % (Auto) Lymph # (Auto) [place] # (Auto) Seg Neutrophils % Seg Neuts % (Manual) Lymphocytes % (Manual) Monocytes % (Manual) Nucleated RBC % Seg Neutrophils # Seg Neutrophils # Man Lymphocytes # (Manual) Monocytes # (Manual) PT INR APTT D-Dimer Heparin Anti-Xa Level ABG pH POC ABG pCO2 POC ABG pO2 ABG pO2 ABG HCO3 32.0 H ABG O2 Saturation ABG Base Excess 5.2 H ABG Hemoglobin 13.6 L ABG Oxyhemoglobin ABG Sodium ABG Potassium ABG Glucose Oxyhemoglobin 94.6 L Carboxyhemoglobin Sodium 146 H Potassium Chloride 109.3 H Carbon Dioxide BUN 36 H Creatinine Glucose 203 H POC Glucose Lactic Acid Calcium Phosphorus Magnesium Ferritin Lactate Dehydrogenase C-Reactive Protein NT-Pro-B Natriuret Pep Total Protein Albumin Triglycerides 254 H Arterial Blood Glucose Urine pH Ur Specific [place] Coronavirus (PCR) 03/19/21 03/19/21 03/19/21 05:45 11:36 23:51 WBC RBC Hgb Hct MCV MCHC RDW Plt Count Lymph % (Auto) [place] % (Auto) Lymph # (Auto) [place] # (Auto) Seg Neutrophils % Seg Neuts % (Manual) Lymphocytes % (Manual) Monocytes % (Manual) Nucleated RBC % Seg Neutrophils # Seg Neutrophils # Man Lymphocytes # (Manual) Monocytes # (Manual) PT INR APTT D-Dimer Heparin Anti-Xa Level ABG pH POC ABG pCO2 POC ABG pO2 ABG pO2 ABG HCO3 ABG O2 Saturation ABG Base Excess ABG Hemoglobin ABG Oxyhemoglobin ABG Sodium ABG Potassium ABG Glucose Oxyhemoglobin Carboxyhemoglobin Sodium Potassium Chloride Carbon Dioxide BUN Creatinine Glucose POC Glucose 164 H 172 H 140 H Lactic Acid Calcium Phosphorus Magnesium Ferritin Lactate Dehydrogenase C-Reactive Protein NT-Pro-B Natriuret Pep Total Protein Albumin Triglycerides Arterial Blood Glucose Urine pH Ur Specific [place] Coronavirus (PCR) 03/20/21 03/20/21 03/20/21 03:29 04:45 04:45 WBC RBC Hgb Hct MCV 95 H MCHC RDW 15.7 H Plt Count Lymph % (Auto) [place] % (Auto) Lymph # (Auto) [place] # (Auto) Seg Neutrophils % Seg Neuts % (Manual) Lymphocytes % (Manual) Monocytes % (Manual) Nucleated RBC % Seg Neutrophils # Seg Neutrophils # Man Lymphocytes # (Manual) Monocytes # (Manual) PT INR APTT D-Dimer Heparin Anti-Xa Level ABG pH 7.349 L POC ABG pCO2 POC ABG pO2 ABG pO2 ABG HCO3 33.7 H ABG O2 Saturation ABG Base Excess 6.4 H ABG Hemoglobin 11.8 L ABG Oxyhemoglobin ABG Sodium ABG Potassium ABG Glucose Oxyhemoglobin 93.9 L Carboxyhemoglobin Sodium 146 H Potassium 5.5 H Chloride 111.1 H Carbon Dioxide BUN 34 H Creatinine 0.7 L Glucose 145 H POC Glucose Lactic Acid Calcium Phosphorus Magnesium 2.50 H Ferritin Lactate Dehydrogenase C-Reactive Protein NT-Pro-B Natriuret Pep Total Protein Albumin Triglycerides Arterial Blood Glucose Urine pH Ur Specific [place] Coronavirus (PCR) 03/20/21 03/20/21 03/20/21 05:41 09:08 11:54 WBC RBC Hgb Hct MCV MCHC RDW Plt Count Lymph % (Auto) [place] % (Auto) Lymph # (Auto) [place] # (Auto) Seg Neutrophils % Seg Neuts % (Manual) Lymphocytes % (Manual) Monocytes % (Manual) Nucleated RBC % Seg Neutrophils # Seg Neutrophils # Man Lymphocytes # (Manual) Monocytes # (Manual) PT INR APTT D-Dimer Heparin Anti-Xa Level ABG pH POC ABG pCO2 POC ABG pO2 ABG pO2 ABG HCO3 ABG O2 Saturation ABG Base Excess ABG Hemoglobin ABG Oxyhemoglobin ABG Sodium ABG Potassium ABG Glucose Oxyhemoglobin Carboxyhemoglobin Sodium Potassium Chloride Carbon Dioxide BUN Creatinine Glucose POC Glucose 108 H 132 H 162 H Lactic Acid Calcium Phosphorus Magnesium Ferritin Lactate Dehydrogenase C-Reactive Protein NT-Pro-B Natriuret Pep Total Protein Albumin Triglycerides Arterial Blood Glucose Urine pH Ur Specific [place] Coronavirus (PCR) 03/20/21 03/21/21 03/21/21 17:28 00:31 04:44 WBC RBC Hgb Hct MCV MCHC RDW Plt Count Lymph % (Auto) [place] % (Auto) Lymph # (Auto) [place] # (Auto) Seg Neutrophils % Seg Neuts % (Manual) Lymphocytes % (Manual) Monocytes % (Manual) Nucleated RBC % Seg Neutrophils # Seg Neutrophils # Man Lymphocytes # (Manual) Monocytes # (Manual) PT INR APTT D-Dimer Heparin Anti-Xa Level ABG pH POC ABG pCO2 POC ABG pO2 ABG pO2 ABG HCO3 ABG O2 Saturation ABG Base Excess ABG Hemoglobin ABG Oxyhemoglobin ABG Sodium ABG Potassium ABG Glucose Oxyhemoglobin Carboxyhemoglobin Sodium Potassium Chloride 108.3 H Carbon Dioxide BUN 30 H Creatinine 0.7 L Glucose POC Glucose 160 H 122 H Lactic Acid Calcium Phosphorus Magnesium Ferritin Lactate Dehydrogenase C-Reactive Protein NT-Pro-B Natriuret Pep Total Protein Albumin Triglycerides Arterial Blood Glucose Urine pH Ur Specific [place] Coronavirus (PCR) 03/21/21 03/21/21 03/21/21 09:18 10:09 13:20 WBC RBC Hgb Hct MCV MCHC RDW Plt Count Lymph % (Auto) [place] % (Auto) Lymph # (Auto) [place] # (Auto) Seg Neutrophils % Seg Neuts % (Manual) Lymphocytes % (Manual) Monocytes % (Manual) Nucleated RBC % Seg Neutrophils # Seg Neutrophils # Man Lymphocytes # (Manual) Monocytes # (Manual) PT INR APTT D-Dimer Heparin Anti-Xa Level ABG pH POC ABG pCO2 POC ABG pO2 ABG pO2 60.7 L ABG HCO3 30.6 H ABG O2 Saturation 93.6 L ABG Base Excess 5.3 H ABG Hemoglobin ABG Oxyhemoglobin ABG Sodium ABG Potassium ABG Glucose Oxyhemoglobin 91.7 L Carboxyhemoglobin Sodium Potassium Chloride Carbon Dioxide BUN Creatinine Glucose POC Glucose 169 H 122 H Lactic Acid Calcium Phosphorus Magnesium Ferritin Lactate Dehydrogenase C-Reactive Protein NT-Pro-B Natriuret Pep Total Protein Albumin Triglycerides Arterial Blood Glucose Urine pH Ur Specific [place] Coronavirus (PCR) 03/21/21 03/21/21 03/21/21 17:25 22:41 23:52 WBC RBC Hgb Hct MCV MCHC RDW Plt Count Lymph % (Auto) [place] % (Auto) Lymph # (Auto) [place] # (Auto) Seg Neutrophils % Seg Neuts % (Manual) Lymphocytes % (Manual) Monocytes % (Manual) Nucleated RBC % Seg Neutrophils # Seg Neutrophils # Man Lymphocytes # (Manual) Monocytes # (Manual) PT INR APTT D-Dimer Heparin Anti-Xa Level ABG pH POC ABG pCO2 POC ABG pO2 ABG pO2 ABG HCO3 ABG O2 Saturation ABG Base Excess ABG Hemoglobin ABG Oxyhemoglobin ABG Sodium ABG Potassium ABG Glucose Oxyhemoglobin Carboxyhemoglobin Sodium Potassium Chloride Carbon Dioxide BUN Creatinine Glucose POC Glucose 121 H 139 H 140 H Lactic Acid Calcium Phosphorus Magnesium Ferritin Lactate Dehydrogenase C-Reactive Protein NT-Pro-B Natriuret Pep Total Protein Albumin Triglycerides Arterial Blood Glucose Urine pH Ur Specific [place] Coronavirus (PCR) 03/22/21 03/22/21 03/22/21 05:58 07:26 07:26 WBC RBC Hgb Hct MCV MCHC 31 L RDW 16.1 H Plt Count Lymph % (Auto) [place] % (Auto) Lymph # (Auto) [place] # (Auto) Seg Neutrophils % Seg Neuts % (Manual) Lymphocytes % (Manual) Monocytes % (Manual) Nucleated RBC % Seg Neutrophils # Seg Neutrophils # Man Lymphocytes # (Manual) Monocytes # (Manual) PT INR APTT D-Dimer Heparin Anti-Xa Level ABG pH POC ABG pCO2 POC ABG pO2 ABG pO2 ABG HCO3 ABG O2 Saturation ABG Base Excess ABG Hemoglobin ABG Oxyhemoglobin ABG Sodium ABG Potassium ABG Glucose Oxyhemoglobin Carboxyhemoglobin Sodium Potassium Chloride 108.5 H Carbon Dioxide BUN 44 H Creatinine Glucose 120 H POC Glucose 131 H Lactic Acid Calcium Phosphorus 5.80 H Magnesium 2.80 H Ferritin Lactate Dehydrogenase C-Reactive Protein NT-Pro-B Natriuret Pep Total Protein Albumin Triglycerides 305 H Arterial Blood Glucose Urine pH Ur Specific [place] Coronavirus (PCR) 03/22/21 03/22/21 03/22/21 09:38 11:15 16:01 WBC RBC Hgb Hct MCV MCHC RDW Plt Count Lymph % (Auto) [place] % (Auto) Lymph # (Auto) [place] # (Auto) Seg Neutrophils % Seg Neuts % (Manual) Lymphocytes % (Manual) Monocytes % (Manual) Nucleated RBC % Seg Neutrophils # Seg Neutrophils # Man Lymphocytes # (Manual) Monocytes # (Manual) PT INR APTT D-Dimer Heparin Anti-Xa Level ABG pH POC ABG pCO2 POC ABG pO2 ABG pO2 70.0 L ABG HCO3 30.0 H ABG O2 Saturation 94.6 L ABG Base Excess 3.6 H ABG Hemoglobin 13.5 L ABG Oxyhemoglobin ABG Sodium ABG Potassium ABG Glucose Oxyhemoglobin 92.5 L Carboxyhemoglobin Sodium Potassium Chloride Carbon Dioxide BUN Creatinine Glucose POC Glucose 186 H 148 H Lactic Acid Calcium Phosphorus Magnesium Ferritin Lactate Dehydrogenase C-Reactive Protein NT-Pro-B Natriuret Pep Total Protein Albumin Triglycerides Arterial Blood Glucose Urine pH Ur Specific [place] Coronavirus (PCR) 03/22/21 03/22/21 03/23/21 21:13 23:48 07:04 WBC 11.7 H RBC Hgb Hct MCV 95 H MCHC RDW 16.1 H Plt Count Lymph % (Auto) [place] % (Auto) Lymph # (Auto) [place] # (Auto) Seg Neutrophils % Seg Neuts % (Manual) Lymphocytes % (Manual) Monocytes % (Manual) Nucleated RBC % Seg Neutrophils # Seg Neutrophils # Man Lymphocytes # (Manual) Monocytes # (Manual) PT INR APTT D-Dimer Heparin Anti-Xa Level ABG pH POC ABG pCO2 POC ABG pO2 ABG pO2 ABG HCO3 ABG O2 Saturation ABG Base Excess ABG Hemoglobin ABG Oxyhemoglobin ABG Sodium ABG Potassium ABG Glucose Oxyhemoglobin Carboxyhemoglobin Sodium Potassium Chloride Carbon Dioxide BUN Creatinine Glucose POC Glucose 121 H 114 H Lactic Acid Calcium Phosphorus Magnesium Ferritin Lactate Dehydrogenase C-Reactive Protein NT-Pro-B Natriuret Pep Total Protein Albumin Triglycerides Arterial Blood Glucose Urine pH Ur Specific [place] Coronavirus (PCR) 03/23/21 03/23/21 03/23/21 07:04 08:35 11:19 WBC RBC Hgb Hct MCV MCHC RDW Plt Count Lymph % (Auto) [place] % (Auto) Lymph # (Auto) [place] # (Auto) Seg Neutrophils % Seg Neuts % (Manual) Lymphocytes % (Manual) Monocytes % (Manual) Nucleated RBC % Seg Neutrophils # Seg Neutrophils # Man Lymphocytes # (Manual) Monocytes # (Manual) PT INR APTT D-Dimer Heparin Anti-Xa Level ABG pH 7.345 L POC ABG pCO2 POC ABG pO2 ABG pO2 167.9 H ABG HCO3 32.2 H ABG O2 Saturation ABG Base Excess 4.8 H ABG Hemoglobin 13.4 L ABG Oxyhemoglobin ABG Sodium ABG Potassium ABG Glucose Oxyhemoglobin Carboxyhemoglobin Sodium 148 H Potassium Chloride 111.3 H Carbon Dioxide 31 H BUN 31 H Creatinine Glucose 131 H POC Glucose 165 H Lactic Acid Calcium Phosphorus Magnesium 2.50 H Ferritin Lactate Dehydrogenase C-Reactive Protein NT-Pro-B Natriuret Pep Total Protein Albumin Triglycerides Arterial Blood Glucose Urine pH Ur Specific [place] Coronavirus (PCR) 03/23/21 03/23/21 03/24/21 16:48 20:52 00:07 WBC RBC Hgb Hct MCV MCHC RDW Plt Count Lymph % (Auto) [place] % (Auto) Lymph # (Auto) [place] # (Auto) Seg Neutrophils % Seg Neuts % (Manual) Lymphocytes % (Manual) Monocytes % (Manual) Nucleated RBC % Seg Neutrophils # Seg Neutrophils # Man Lymphocytes # (Manual) Monocytes # (Manual) PT INR APTT D-Dimer Heparin Anti-Xa Level ABG pH POC ABG pCO2 POC ABG pO2 ABG pO2 ABG HCO3 ABG O2 Saturation ABG Base Excess ABG Hemoglobin ABG Oxyhemoglobin ABG Sodium ABG Potassium ABG Glucose Oxyhemoglobin Carboxyhemoglobin Sodium Potassium Chloride Carbon Dioxide BUN Creatinine Glucose POC Glucose 160 H 127 H 147 H Lactic Acid Calcium Phosphorus Magnesium Ferritin Lactate Dehydrogenase C-Reactive Protein NT-Pro-B Natriuret Pep Total Protein Albumin Triglycerides Arterial Blood Glucose Urine pH Ur Specific [place] Coronavirus (PCR) 03/24/21 03/24/21 03/24/21 04:34 04:34 05:20 WBC 13.3 H RBC Hgb Hct MCV MCHC 31 L RDW 16.1 H Plt Count Lymph % (Auto) [place] % (Auto) Lymph # (Auto) [place] # (Auto) Seg Neutrophils % Seg Neuts % (Manual) Lymphocytes % (Manual) Monocytes % (Manual) Nucleated RBC % Seg Neutrophils # Seg Neutrophils # Man Lymphocytes # (Manual) Monocytes # (Manual) PT INR APTT D-Dimer Heparin Anti-Xa Level ABG pH POC ABG pCO2 POC ABG pO2 ABG pO2 ABG HCO3 ABG O2 Saturation ABG Base Excess ABG Hemoglobin ABG Oxyhemoglobin ABG Sodium ABG Potassium ABG Glucose Oxyhemoglobin Carboxyhemoglobin Sodium Potassium 5.2 H Chloride Carbon Dioxide BUN 28 H Creatinine 0.7 L Glucose 152 H POC Glucose 141 H Lactic Acid Calcium Phosphorus Magnesium Ferritin Lactate Dehydrogenase C-Reactive Protein NT-Pro-B Natriuret Pep Total Protein Albumin Triglycerides Arterial Blood Glucose Urine pH Ur Specific [place] Coronavirus (PCR) 01/28/22 01/28/22 01/28/22 09:40 11:38 16:45 WBC RBC Hgb Hct MCV MCHC RDW Plt Count Lymph % (Auto) [place] % (Auto) Lymph # (Auto) [place] # (Auto) Seg Neutrophils % Seg Neuts % (Manual) Lymphocytes % (Manual) Monocytes % (Manual) Nucleated RBC % Seg Neutrophils # Seg Neutrophils # Man Lymphocytes # (Manual) Monocytes # (Manual) PT INR APTT D-Dimer Heparin Anti-Xa Level ABG pH POC ABG pCO2 POC ABG pO2 ABG pO2 ABG HCO3 ABG O2 Saturation ABG Base Excess ABG Hemoglobin ABG Oxyhemoglobin ABG Sodium ABG Potassium ABG Glucose Oxyhemoglobin Carboxyhemoglobin Sodium Potassium Chloride Carbon Dioxide BUN Creatinine Glucose POC Glucose 126 H 136 H 118 H Lactic Acid Calcium Phosphorus Magnesium Ferritin Lactate Dehydrogenase C-Reactive Protein NT-Pro-B Natriuret Pep Total Protein Albumin Triglycerides Arterial Blood Glucose Urine pH Ur Specific [place] Coronavirus (PCR) 03/24/21 03/24/21 03/25/21 21:03 23:49 04:32 WBC RBC Hgb Hct MCV MCHC RDW 16.1 H Plt Count 121 L Lymph % (Auto) [place] % (Auto) Lymph # (Auto) [place] # (Auto) Seg Neutrophils % Seg Neuts % (Manual) Lymphocytes % (Manual) Monocytes % (Manual) Nucleated RBC % Seg Neutrophils # Seg Neutrophils # Man Lymphocytes # (Manual) Monocytes # (Manual) PT INR APTT D-Dimer Heparin Anti-Xa Level ABG pH POC ABG pCO2 POC ABG pO2 ABG pO2 ABG HCO3 ABG O2 Saturation ABG Base Excess ABG Hemoglobin ABG Oxyhemoglobin ABG Sodium ABG Potassium ABG Glucose Oxyhemoglobin Carboxyhemoglobin Sodium Potassium Chloride Carbon Dioxide BUN Creatinine Glucose POC Glucose 116 H 125 H Lactic Acid Calcium Phosphorus Magnesium Ferritin Lactate Dehydrogenase C-Reactive Protein NT-Pro-B Natriuret Pep Total Protein Albumin Triglycerides Arterial Blood Glucose Urine pH Ur Specific [place] Coronavirus (PCR) 03/25/21 03/25/21 03/25/21 04:32 05:21 09:29 WBC RBC Hgb Hct MCV MCHC RDW Plt Count Lymph % (Auto) [place] % (Auto) Lymph # (Auto) [place] # (Auto) Seg Neutrophils % Seg Neuts % (Manual) Lymphocytes % (Manual) Monocytes % (Manual) Nucleated RBC % Seg Neutrophils # Seg Neutrophils # Man Lymphocytes # (Manual) Monocytes # (Manual) PT INR APTT D-Dimer Heparin Anti-Xa Level ABG pH POC ABG pCO2 POC ABG pO2 ABG pO2 ABG HCO3 ABG O2 Saturation ABG Base Excess ABG Hemoglobin ABG Oxyhemoglobin ABG Sodium ABG Potassium ABG Glucose Oxyhemoglobin Carboxyhemoglobin Sodium 135 L D Potassium Chloride Carbon Dioxide BUN 25 H Creatinine 0.7 L Glucose 168 H POC Glucose 149 H 115 H Lactic Acid Calcium Phosphorus Magnesium Ferritin Lactate Dehydrogenase C-Reactive Protein NT-Pro-B Natriuret Pep Total Protein Albumin Triglycerides Arterial Blood Glucose Urine pH Ur Specific [place] Coronavirus (PCR) 03/25/21 03/25/21 03/25/21 12:26 12:35 23:53 WBC RBC Hgb Hct MCV MCHC RDW Plt Count Lymph % (Auto) [place] % (Auto) Lymph # (Auto) [place] # (Auto) Seg Neutrophils % Seg Neuts % (Manual) Lymphocytes % (Manual) Monocytes % (Manual) Nucleated RBC % Seg Neutrophils # Seg Neutrophils # Man Lymphocytes # (Manual) Monocytes # (Manual) PT INR APTT D-Dimer Heparin Anti-Xa Level ABG pH POC ABG pCO2 POC ABG pO2 ABG pO2 100.5 H ABG HCO3 33.6 H ABG O2 Saturation ABG Base Excess 6.4 H ABG Hemoglobin 12.0 L ABG Oxyhemoglobin ABG Sodium ABG Potassium ABG Glucose Oxyhemoglobin Carboxyhemoglobin Sodium Potassium Chloride Carbon Dioxide BUN Creatinine Glucose POC Glucose 108 H 137 H Lactic Acid Calcium Phosphorus Magnesium Ferritin Lactate Dehydrogenase C-Reactive Protein NT-Pro-B Natriuret Pep Total Protein Albumin Triglycerides Arterial Blood Glucose Urine pH Ur Specific [place] Coronavirus (PCR) 03/26/21 03/26/21 03/26/21 05:14 07:09 07:09 WBC RBC Hgb Hct MCV MCHC RDW 16.5 H Plt Count 139 L Lymph % (Auto) [place] % (Auto) Lymph # (Auto) [place] # (Auto) Seg Neutrophils % Seg Neuts % (Manual) Lymphocytes % (Manual) Monocytes % (Manual) Nucleated RBC % Seg Neutrophils # Seg Neutrophils # Man Lymphocytes # (Manual) Monocytes # (Manual) PT INR APTT D-Dimer Heparin Anti-Xa Level ABG pH POC ABG pCO2 POC ABG pO2 ABG pO2 ABG HCO3 ABG O2 Saturation ABG Base Excess ABG Hemoglobin ABG Oxyhemoglobin ABG Sodium ABG Potassium ABG Glucose Oxyhemoglobin Carboxyhemoglobin Sodium Potassium Chloride Carbon Dioxide BUN 22 H Creatinine 0.7 L Glucose 108 H POC Glucose 116 H Lactic Acid Calcium Phosphorus Magnesium Ferritin Lactate Dehydrogenase C-Reactive Protein NT-Pro-B Natriuret Pep Total Protein Albumin Triglycerides Arterial Blood Glucose Urine pH Ur Specific [place] Coronavirus (PCR) 03/26/21 03/26/21 03/26/21 09:51 11:15 16:59 WBC RBC Hgb Hct MCV MCHC RDW Plt Count Lymph % (Auto) [place] % (Auto) Lymph # (Auto) [place] # (Auto) Seg Neutrophils % Seg Neuts % (Manual) Lymphocytes % (Manual) Monocytes % (Manual) Nucleated RBC % Seg Neutrophils # Seg Neutrophils # Man Lymphocytes # (Manual) Monocytes # (Manual) PT INR APTT D-Dimer Heparin Anti-Xa Level ABG pH POC ABG pCO2 POC ABG pO2 ABG pO2 ABG HCO3 ABG O2 Saturation ABG Base Excess ABG Hemoglobin ABG Oxyhemoglobin ABG Sodium ABG Potassium ABG Glucose Oxyhemoglobin Carboxyhemoglobin Sodium Potassium Chloride Carbon Dioxide BUN Creatinine Glucose POC Glucose 107 H 119 H 174 H Lactic Acid Calcium Phosphorus Magnesium Ferritin Lactate Dehydrogenase C-Reactive Protein NT-Pro-B Natriuret Pep Total Protein Albumin Triglycerides Arterial Blood Glucose Urine pH Ur Specific [place] Coronavirus (PCR) 03/26/21 03/27/21 03/27/21 22:18 07:08 10:28 WBC RBC Hgb Hct MCV 95 H MCHC RDW 16.2 H Plt Count 134 L Lymph % (Auto) [place] % (Auto) Lymph # (Auto) [place] # (Auto) Seg Neutrophils % Seg Neuts % (Manual) Lymphocytes % (Manual) Monocytes % (Manual) Nucleated RBC % Seg Neutrophils # Seg Neutrophils # Man Lymphocytes # (Manual) Monocytes # (Manual) PT INR APTT D-Dimer Heparin Anti-Xa Level ABG pH POC ABG pCO2 POC ABG pO2 ABG pO2 ABG HCO3 ABG O2 Saturation ABG Base Excess ABG Hemoglobin ABG Oxyhemoglobin ABG Sodium ABG Potassium ABG Glucose Oxyhemoglobin Carboxyhemoglobin Sodium Potassium Chloride Carbon Dioxide BUN Creatinine Glucose POC Glucose 107 H 52 L Lactic Acid Calcium Phosphorus Magnesium Ferritin Lactate Dehydrogenase C-Reactive Protein NT-Pro-B Natriuret Pep Total Protein Albumin Triglycerides Arterial Blood Glucose Urine pH Ur Specific [place] Coronavirus (PCR) 0103/27/21 03/27/21 10:28 11:45 17:39 WBC RBC Hgb Hct MCV MCHC RDW Plt Count Lymph % (Auto) [place] % (Auto) Lymph # (Auto) [place] # (Auto) Seg Neutrophils % Seg Neuts % (Manual) Lymphocytes % (Manual) Monocytes % (Manual) Nucleated RBC % Seg Neutrophils # Seg Neutrophils # Man Lymphocytes # (Manual) Monocytes # (Manual) PT INR APTT D-Dimer Heparin Anti-Xa Level ABG pH POC ABG pCO2 POC ABG pO2 ABG pO2 ABG HCO3 ABG O2 Saturation ABG Base Excess ABG Hemoglobin ABG Oxyhemoglobin ABG Sodium ABG Potassium ABG Glucose Oxyhemoglobin Carboxyhemoglobin Sodium 136 L Potassium Chloride Carbon Dioxide BUN Creatinine 0.7 L Glucose 150 H POC Glucose 121 H 165 H Lactic Acid Calcium Phosphorus Magnesium Ferritin Lactate Dehydrogenase C-Reactive Protein NT-Pro-B Natriuret Pep Total Protein Albumin Triglycerides Arterial Blood Glucose Urine pH Ur Specific [place] Coronavirus (PCR) 03/28/21 03/28/21 03/28/21 07:14 11:42 18:22 WBC RBC Hgb Hct MCV MCHC RDW 16.4 H Plt Count Lymph % (Auto) [place] % (Auto) Lymph # (Auto) [place] # (Auto) Seg Neutrophils % Seg Neuts % (Manual) Lymphocytes % (Manual) Monocytes % (Manual) Nucleated RBC % Seg Neutrophils # Seg Neutrophils # Man Lymphocytes # (Manual) Monocytes # (Manual) PT INR APTT D-Dimer Heparin Anti-Xa Level ABG pH POC ABG pCO2 POC ABG pO2 ABG pO2 ABG HCO3 ABG O2 Saturation ABG Base Excess ABG Hemoglobin ABG Oxyhemoglobin ABG Sodium ABG Potassium ABG Glucose Oxyhemoglobin Carboxyhemoglobin Sodium Potassium Chloride Carbon Dioxide BUN Creatinine Glucose POC Glucose 145 H 169 H Lactic Acid Calcium Phosphorus Magnesium Ferritin Lactate Dehydrogenase C-Reactive Protein NT-Pro-B Natriuret Pep Total Protein Albumin Triglycerides Arterial Blood Glucose Urine pH Ur Specific [place] Coronavirus (PCR) 03/28/21 03/29/21 03/29/21 23:39 04:50 04:50 WBC RBC Hgb 11.0 L Hct 34.9 L MCV MCHC RDW 15.9 H Plt Count Lymph % (Auto) [place] % (Auto) Lymph # (Auto) [place] # (Auto) Seg Neutrophils % Seg Neuts % (Manual) Lymphocytes % (Manual) Monocytes % (Manual) Nucleated RBC % Seg Neutrophils # Seg Neutrophils # Man Lymphocytes # (Manual) Monocytes # (Manual) PT INR APTT D-Dimer Heparin Anti-Xa Level ABG pH POC ABG pCO2 POC ABG pO2 ABG pO2 ABG HCO3 ABG O2 Saturation ABG Base Excess ABG Hemoglobin ABG Oxyhemoglobin ABG Sodium ABG Potassium ABG Glucose Oxyhemoglobin Carboxyhemoglobin Sodium Potassium Chloride Carbon Dioxide 34 H BUN Creatinine 0.6 L Glucose 152 H POC Glucose 139 H Lactic Acid Calcium Phosphorus Magnesium Ferritin Lactate Dehydrogenase C-Reactive Protein NT-Pro-B Natriuret Pep Total Protein Albumin Triglycerides Arterial Blood Glucose Urine pH Ur Specific [place] Coronavirus (PCR) 03/29/21 03/29/21 03/29/21 05:25 11:34 18:02 WBC RBC Hgb Hct MCV MCHC RDW Plt Count Lymph % (Auto) [place] % (Auto) Lymph # (Auto) [place] # (Auto) Seg Neutrophils % Seg Neuts % (Manual) Lymphocytes % (Manual) Monocytes % (Manual) Nucleated RBC % Seg Neutrophils # Seg Neutrophils # Man Lymphocytes # (Manual) Monocytes # (Manual) PT INR APTT D-Dimer Heparin Anti-Xa Level ABG pH POC ABG pCO2 POC ABG pO2 ABG pO2 ABG HCO3 ABG O2 Saturation ABG Base Excess ABG Hemoglobin ABG Oxyhemoglobin ABG Sodium ABG Potassium ABG Glucose Oxyhemoglobin Carboxyhemoglobin Sodium Potassium Chloride Carbon Dioxide BUN Creatinine Glucose POC Glucose 127 H 169 H 173 H Lactic Acid Calcium Phosphorus Magnesium Ferritin Lactate Dehydrogenase C-Reactive Protein NT-Pro-B Natriuret Pep Total Protein Albumin Triglycerides Arterial Blood Glucose Urine pH Ur Specific [place] Coronavirus (PCR) 03/29/21 03/30/21 03/30/21 21:42 00:01 05:36 WBC RBC Hgb Hct MCV MCHC RDW 16.7 H Plt Count Lymph % (Auto) [place] % (Auto) Lymph # (Auto) [place] # (Auto) Seg Neutrophils % Seg Neuts % (Manual) Lymphocytes % (Manual) Monocytes % (Manual) Nucleated RBC % Seg Neutrophils # Seg Neutrophils # Man Lymphocytes # (Manual) Monocytes # (Manual) PT INR APTT D-Dimer Heparin Anti-Xa Level ABG pH POC ABG pCO2 POC ABG pO2 ABG pO2 ABG HCO3 ABG O2 Saturation ABG Base Excess ABG Hemoglobin ABG Oxyhemoglobin ABG Sodium ABG Potassium ABG Glucose Oxyhemoglobin Carboxyhemoglobin Sodium Potassium Chloride Carbon Dioxide BUN Creatinine Glucose POC Glucose 184 H 161 H Lactic Acid Calcium Phosphorus Magnesium Ferritin Lactate Dehydrogenase C-Reactive Protein NT-Pro-B Natriuret Pep Total Protein Albumin Triglycerides Arterial Blood Glucose Urine pH Ur Specific [place] Coronavirus (PCR) 03/30/21 03/30/21 03/30/21 05:36 06:03 11:32 WBC RBC Hgb Hct MCV MCHC RDW Plt Count Lymph % (Auto) [place] % (Auto) Lymph # (Auto) [place] # (Auto) Seg Neutrophils % Seg Neuts % (Manual) Lymphocytes % (Manual) Monocytes % (Manual) Nucleated RBC % Seg Neutrophils # Seg Neutrophils # Man Lymphocytes # (Manual) Monocytes # (Manual) PT INR APTT D-Dimer Heparin Anti-Xa Level ABG pH POC ABG pCO2 POC ABG pO2 ABG pO2 ABG HCO3 ABG O2 Saturation ABG Base Excess ABG Hemoglobin ABG Oxyhemoglobin ABG Sodium ABG Potassium ABG Glucose Oxyhemoglobin Carboxyhemoglobin Sodium Potassium Chloride Carbon Dioxide BUN Creatinine 0.5 L Glucose 127 H POC Glucose 130 H 183 H Lactic Acid Calcium Phosphorus Magnesium Ferritin Lactate Dehydrogenase C-Reactive Protein NT-Pro-B Natriuret Pep Total Protein Albumin Triglycerides Arterial Blood Glucose Urine pH Ur Specific [place] Coronavirus (PCR) 03/30/21 03/30/21 03/30/21 15:00 16:23 21:07 WBC RBC Hgb Hct MCV MCHC RDW Plt Count Lymph % (Auto) [place] % (Auto) Lymph # (Auto) [place] # (Auto) Seg Neutrophils % Seg Neuts % (Manual) Lymphocytes % (Manual) Monocytes % (Manual) Nucleated RBC % Seg Neutrophils # Seg Neutrophils # Man Lymphocytes # (Manual) Monocytes # (Manual) PT INR APTT D-Dimer Heparin Anti-Xa Level ABG pH POC ABG pCO2 POC ABG pO2 ABG pO2 67.2 L ABG HCO3 34.9 H ABG O2 Saturation ABG Base Excess 9.1 H ABG Hemoglobin 11.6 L ABG Oxyhemoglobin ABG Sodium ABG Potassium ABG Glucose Oxyhemoglobin 93.0 L Carboxyhemoglobin Sodium Potassium Chloride Carbon Dioxide BUN Creatinine Glucose POC Glucose 162 H 146 H Lactic Acid Calcium Phosphorus Magnesium Ferritin Lactate Dehydrogenase C-Reactive Protein NT-Pro-B Natriuret Pep Total Protein Albumin Triglycerides Arterial Blood Glucose Urine pH Ur Specific [place] Coronavirus (PCR) 03/30/21 03/31/21 03/31/21 23:23 05:44 11:19 WBC RBC Hgb Hct MCV MCHC RDW Plt Count Lymph % (Auto) [place] % (Auto) Lymph # (Auto) [place] # (Auto) Seg Neutrophils % Seg Neuts % (Manual) Lymphocytes % (Manual) Monocytes % (Manual) Nucleated RBC % Seg Neutrophils # Seg Neutrophils # Man Lymphocytes # (Manual) Monocytes # (Manual) PT INR APTT D-Dimer Heparin Anti-Xa Level ABG pH POC ABG pCO2 POC ABG pO2 ABG pO2 ABG HCO3 ABG O2 Saturation ABG Base Excess ABG Hemoglobin ABG Oxyhemoglobin ABG Sodium ABG Potassium ABG Glucose Oxyhemoglobin Carboxyhemoglobin Sodium Potassium Chloride Carbon Dioxide BUN Creatinine Glucose POC Glucose 138 H 180 H 178 H Lactic Acid Calcium Phosphorus Magnesium Ferritin Lactate Dehydrogenase C-Reactive Protein NT-Pro-B Natriuret Pep Total Protein Albumin Triglycerides Arterial Blood Glucose Urine pH Ur Specific [place] Coronavirus (PCR) 03/31/21 03/31/21 03/31/21 12:50 13:30 16:06 WBC RBC Hgb 11.3 L Hct 35.1 L MCV MCHC RDW 16.5 H Plt Count Lymph % (Auto) 7.6 L [place] % (Auto) 9.5 H Lymph # (Auto) 0.6 L [place] # (Auto) Seg Neutrophils % 78.3 H Seg Neuts % (Manual) Lymphocytes % (Manual) Monocytes % (Manual) Nucleated RBC % Seg Neutrophils # Seg Neutrophils # Man Lymphocytes # (Manual) Monocytes # (Manual) PT INR APTT D-Dimer Heparin Anti-Xa Level ABG pH POC ABG pCO2 POC ABG pO2 ABG pO2 99.4 H ABG HCO3 34.9 H ABG O2 Saturation ABG Base Excess 8.4 H ABG Hemoglobin 11.8 L ABG Oxyhemoglobin ABG Sodium ABG Potassium ABG Glucose Oxyhemoglobin Carboxyhemoglobin Sodium Potassium Chloride Carbon Dioxide BUN Creatinine Glucose POC Glucose 197 H Lactic Acid Calcium Phosphorus Magnesium Ferritin Lactate Dehydrogenase C-Reactive Protein NT-Pro-B Natriuret Pep Total Protein Albumin Triglycerides Arterial Blood Glucose Urine pH Ur Specific [place] Coronavirus (PCR) 03/31/21 04/01/21 04/01/21 20:51 05:37 07:16 WBC RBC 3.39 L Hgb 10.5 L Hct 31.6 L MCV MCHC RDW 16.1 H Plt Count Lymph % (Auto) [place] % (Auto) Lymph # (Auto) [place] # (Auto) Seg Neutrophils % Seg Neuts % (Manual) Lymphocytes % (Manual) Monocytes % (Manual) Nucleated RBC % Seg Neutrophils # Seg Neutrophils # Man Lymphocytes # (Manual) Monocytes # (Manual) PT INR APTT D-Dimer Heparin Anti-Xa Level ABG pH POC ABG pCO2 POC ABG pO2 ABG pO2 ABG HCO3 ABG O2 Saturation ABG Base Excess ABG Hemoglobin ABG Oxyhemoglobin ABG Sodium ABG Potassium ABG Glucose Oxyhemoglobin Carboxyhemoglobin Sodium Potassium Chloride Carbon Dioxide BUN Creatinine Glucose POC Glucose 140 H 128 H Lactic Acid Calcium Phosphorus Magnesium Ferritin Lactate Dehydrogenase C-Reactive Protein NT-Pro-B Natriuret Pep Total Protein Albumin Triglycerides Arterial Blood Glucose Urine pH Ur Specific [place] Coronavirus (PCR) 04/01/21 04/01/21 04/01/21 07:16 11:52 16:56 WBC RBC Hgb Hct MCV MCHC RDW Plt Count Lymph % (Auto) [place] % (Auto) Lymph # (Auto) [place] # (Auto) Seg Neutrophils % Seg Neuts % (Manual) Lymphocytes % (Manual) Monocytes % (Manual) Nucleated RBC % Seg Neutrophils # Seg Neutrophils # Man Lymphocytes # (Manual) Monocytes # (Manual) PT INR APTT D-Dimer Heparin Anti-Xa Level ABG pH POC ABG pCO2 POC ABG pO2 ABG pO2 ABG HCO3 ABG O2 Saturation ABG Base Excess ABG Hemoglobin ABG Oxyhemoglobin ABG Sodium ABG Potassium ABG Glucose Oxyhemoglobin Carboxyhemoglobin Sodium Potassium Chloride Carbon Dioxide BUN Creatinine 0.6 L Glucose 131 H POC Glucose 182 H 179 H Lactic Acid Calcium 8.3 L Phosphorus Magnesium Ferritin Lactate Dehydrogenase C-Reactive Protein NT-Pro-B Natriuret Pep Total Protein Albumin Triglycerides Arterial Blood Glucose Urine pH Ur Specific [place] Coronavirus (PCR) 04/01/21 04/01/21 04/02/21 21:30 23:40 04:26 WBC RBC 3.62 L Hgb 10.8 L Hct 33.9 L MCV MCHC RDW 16.0 H Plt Count Lymph % (Auto) [place] % (Auto) Lymph # (Auto) [place] # (Auto) Seg Neutrophils % Seg Neuts % (Manual) Lymphocytes % (Manual) Monocytes % (Manual) Nucleated RBC % Seg Neutrophils # Seg Neutrophils # Man Lymphocytes # (Manual) Monocytes # (Manual) PT INR APTT D-Dimer Heparin Anti-Xa Level ABG pH POC ABG pCO2 POC ABG pO2 ABG pO2 ABG HCO3 ABG O2 Saturation ABG Base Excess ABG Hemoglobin ABG Oxyhemoglobin ABG Sodium ABG Potassium ABG Glucose Oxyhemoglobin Carboxyhemoglobin Sodium Potassium Chloride Carbon Dioxide BUN Creatinine Glucose POC Glucose 131 H 129 H Lactic Acid Calcium Phosphorus Magnesium Ferritin Lactate Dehydrogenase C-Reactive Protein NT-Pro-B Natriuret Pep Total Protein Albumin Triglycerides Arterial Blood Glucose Urine pH Ur Specific [place] Coronavirus (PCR) 04/02/21 04/02/21 04/02/21 04:26 05:54 11:35 WBC RBC Hgb Hct MCV MCHC RDW Plt Count Lymph % (Auto) [place] % (Auto) Lymph # (Auto) [place] # (Auto) Seg Neutrophils % Seg Neuts % (Manual) Lymphocytes % (Manual) Monocytes % (Manual) Nucleated RBC % Seg Neutrophils # Seg Neutrophils # Man Lymphocytes # (Manual) Monocytes # (Manual) PT INR APTT D-Dimer Heparin Anti-Xa Level ABG pH POC ABG pCO2 POC ABG pO2 ABG pO2 ABG HCO3 ABG O2 Saturation ABG Base Excess ABG Hemoglobin ABG Oxyhemoglobin ABG Sodium ABG Potassium ABG Glucose Oxyhemoglobin Carboxyhemoglobin Sodium 136 L Potassium Chloride Carbon Dioxide BUN Creatinine 0.6 L Glucose 152 H POC Glucose 151 H 178 H Lactic Acid Calcium Phosphorus Magnesium Ferritin Lactate Dehydrogenase C-Reactive Protein NT-Pro-B Natriuret Pep Total Protein Albumin Triglycerides Arterial Blood Glucose Urine pH Ur Specific [place] Coronavirus (PCR) 04/02/21 04/02/21 04/02/21 16:11 21:09 23:38 WBC RBC Hgb Hct MCV MCHC RDW Plt Count Lymph % (Auto) [place] % (Auto) Lymph # (Auto) [place] # (Auto) Seg Neutrophils % Seg Neuts % (Manual) Lymphocytes % (Manual) Monocytes % (Manual) Nucleated RBC % Seg Neutrophils # Seg Neutrophils # Man Lymphocytes # (Manual) Monocytes # (Manual) PT INR APTT D-Dimer Heparin Anti-Xa Level ABG pH POC ABG pCO2 POC ABG pO2 ABG pO2 ABG HCO3 ABG O2 Saturation ABG Base Excess ABG Hemoglobin ABG Oxyhemoglobin ABG Sodium ABG Potassium ABG Glucose Oxyhemoglobin Carboxyhemoglobin Sodium Potassium Chloride Carbon Dioxide BUN Creatinine Glucose POC Glucose 186 H 145 H 152 H Lactic Acid Calcium Phosphorus Magnesium Ferritin Lactate Dehydrogenase C-Reactive Protein NT-Pro-B Natriuret Pep Total Protein Albumin Triglycerides Arterial Blood Glucose Urine pH Ur Specific [place] Coronavirus (PCR) 04/03/21 04/03/21 04/03/21 04:14 04:14 05:27 WBC RBC 3.62 L Hgb 11.0 L Hct 34.0 L MCV MCHC RDW 16.3 H Plt Count Lymph % (Auto) [place] % (Auto) Lymph # (Auto) [place] # (Auto) Seg Neutrophils % Seg Neuts % (Manual) Lymphocytes % (Manual) Monocytes % (Manual) Nucleated RBC % Seg Neutrophils # Seg Neutrophils # Man Lymphocytes # (Manual) Monocytes # (Manual) PT INR APTT D-Dimer Heparin Anti-Xa Level ABG pH POC ABG pCO2 POC ABG pO2 ABG pO2 ABG HCO3 ABG O2 Saturation ABG Base Excess ABG Hemoglobin ABG Oxyhemoglobin ABG Sodium ABG Potassium ABG Glucose Oxyhemoglobin Carboxyhemoglobin Sodium Potassium Chloride Carbon Dioxide 31 H BUN Creatinine 0.6 L Glucose 155 H POC Glucose 165 H Lactic Acid Calcium Phosphorus Magnesium Ferritin Lactate Dehydrogenase C-Reactive Protein NT-Pro-B Natriuret Pep Total Protein Albumin Triglycerides Arterial Blood Glucose Urine pH Ur Specific [place] Coronavirus (PCR) 04/03/21 04/03/21 04/03/21 11:02 16:19 19:45 WBC RBC Hgb Hct MCV MCHC RDW Plt Count Lymph % (Auto) [place] % (Auto) Lymph # (Auto) [place] # (Auto) Seg Neutrophils % Seg Neuts % (Manual) Lymphocytes % (Manual) Monocytes % (Manual) Nucleated RBC % Seg Neutrophils # Seg Neutrophils # Man Lymphocytes # (Manual) Monocytes # (Manual) PT INR APTT D-Dimer Heparin Anti-Xa Level ABG pH POC ABG pCO2 POC ABG pO2 ABG pO2 ABG HCO3 ABG O2 Saturation ABG Base Excess ABG Hemoglobin ABG Oxyhemoglobin ABG Sodium ABG Potassium ABG Glucose Oxyhemoglobin Carboxyhemoglobin Sodium Potassium Chloride Carbon Dioxide BUN Creatinine Glucose POC Glucose 161 H 180 H 136 H Lactic Acid Calcium Phosphorus Magnesium Ferritin Lactate Dehydrogenase C-Reactive Protein NT-Pro-B Natriuret Pep Total Protein Albumin Triglycerides Arterial Blood Glucose Urine pH Ur Specific [place] Coronavirus (PCR) 04/04/21 04/04/21 04/04/21 00:21 04:33 04:33 WBC 13.1 H RBC 3.49 L Hgb 10.3 L Hct 32.7 L MCV MCHC RDW 16.1 H Plt Count Lymph % (Auto) [place] % (Auto) Lymph # (Auto) [place] # (Auto) Seg Neutrophils % Seg Neuts % (Manual) Lymphocytes % (Manual) Monocytes % (Manual) Nucleated RBC % Seg Neutrophils # Seg Neutrophils # Man Lymphocytes # (Manual) Monocytes # (Manual) PT INR APTT D-Dimer Heparin Anti-Xa Level ABG pH POC ABG pCO2 POC ABG pO2 ABG pO2 ABG HCO3 ABG O2 Saturation ABG Base Excess ABG Hemoglobin ABG Oxyhemoglobin ABG Sodium ABG Potassium ABG Glucose Oxyhemoglobin Carboxyhemoglobin Sodium Potassium Chloride Carbon Dioxide 31 H BUN Creatinine 0.4 L Glucose 153 H POC Glucose 140 H Lactic Acid Calcium Phosphorus Magnesium Ferritin Lactate Dehydrogenase C-Reactive Protein NT-Pro-B Natriuret Pep Total Protein Albumin Triglycerides Arterial Blood Glucose Urine pH Ur Specific [place] Coronavirus (PCR) 04/04/21 04/04/21 04/04/21 05:16 11:39 17:22 WBC RBC Hgb Hct MCV MCHC RDW Plt Count Lymph % (Auto) [place] % (Auto) Lymph # (Auto) [place] # (Auto) Seg Neutrophils % Seg Neuts % (Manual) Lymphocytes % (Manual) Monocytes % (Manual) Nucleated RBC % Seg Neutrophils # Seg Neutrophils # Man Lymphocytes # (Manual) Monocytes # (Manual) PT INR APTT D-Dimer Heparin Anti-Xa Level ABG pH POC ABG pCO2 POC ABG pO2 ABG pO2 ABG HCO3 ABG O2 Saturation ABG Base Excess ABG Hemoglobin ABG Oxyhemoglobin ABG Sodium ABG Potassium ABG Glucose Oxyhemoglobin Carboxyhemoglobin Sodium Potassium Chloride Carbon Dioxide BUN Creatinine Glucose POC Glucose 152 H 154 H 198 H Lactic Acid Calcium Phosphorus Magnesium Ferritin Lactate Dehydrogenase C-Reactive Protein NT-Pro-B Natriuret Pep Total Protein Albumin Triglycerides Arterial Blood Glucose Urine pH Ur Specific [place] Coronavirus (PCR) 04/04/21 04/04/21 04/05/21 20:14 23:16 04:15 WBC RBC 3.21 L Hgb 10.0 L Hct 30.3 L MCV MCHC RDW 16.4 H Plt Count Lymph % (Auto) [place] % (Auto) Lymph # (Auto) [place] # (Auto) Seg Neutrophils % Seg Neuts % (Manual) Lymphocytes % (Manual) Monocytes % (Manual) Nucleated RBC % Seg Neutrophils # Seg Neutrophils # Man Lymphocytes # (Manual) Monocytes # (Manual) PT INR APTT D-Dimer Heparin Anti-Xa Level ABG pH POC ABG pCO2 POC ABG pO2 ABG pO2 ABG HCO3 ABG O2 Saturation ABG Base Excess ABG Hemoglobin ABG Oxyhemoglobin ABG Sodium ABG Potassium ABG Glucose Oxyhemoglobin Carboxyhemoglobin Sodium Potassium Chloride Carbon Dioxide BUN Creatinine Glucose POC Glucose 161 H 139 H Lactic Acid Calcium Phosphorus Magnesium Ferritin Lactate Dehydrogenase C-Reactive Protein NT-Pro-B Natriuret Pep Total Protein Albumin Triglycerides Arterial Blood Glucose Urine pH Ur Specific [place] Coronavirus (PCR) 04/05/21 04/05/21 04/05/21 04:15 05:34 12:09 WBC RBC Hgb Hct MCV MCHC RDW Plt Count Lymph % (Auto) [place] % (Auto) Lymph # (Auto) [place] # (Auto) Seg Neutrophils % Seg Neuts % (Manual) Lymphocytes % (Manual) Monocytes % (Manual) Nucleated RBC % Seg Neutrophils # Seg Neutrophils # Man Lymphocytes # (Manual) Monocytes # (Manual) PT INR APTT D-Dimer Heparin Anti-Xa Level ABG pH POC ABG pCO2 POC ABG pO2 ABG pO2 ABG HCO3 ABG O2 Saturation ABG Base Excess ABG Hemoglobin ABG Oxyhemoglobin ABG Sodium ABG Potassium ABG Glucose Oxyhemoglobin Carboxyhemoglobin Sodium Potassium Chloride 97.6 L Carbon Dioxide 32 H BUN Creatinine 0.5 L Glucose 147 H POC Glucose 145 H 173 H Lactic Acid Calcium Phosphorus Magnesium Ferritin Lactate Dehydrogenase C-Reactive Protein NT-Pro-B Natriuret Pep Total Protein Albumin Triglycerides Arterial Blood Glucose Urine pH Ur Specific [place] Coronavirus (PCR) 04/05/21 04/05/21 04/05/21 17:35 21:07 23:15 WBC RBC Hgb Hct MCV MCHC RDW Plt Count Lymph % (Auto) [place] % (Auto) Lymph # (Auto) [place] # (Auto) Seg Neutrophils % Seg Neuts % (Manual) Lymphocytes % (Manual) Monocytes % (Manual) Nucleated RBC % Seg Neutrophils # Seg Neutrophils # Man Lymphocytes # (Manual) Monocytes # (Manual) PT INR APTT D-Dimer Heparin Anti-Xa Level ABG pH POC ABG pCO2 POC ABG pO2 ABG pO2 ABG HCO3 ABG O2 Saturation ABG Base Excess ABG Hemoglobin ABG Oxyhemoglobin ABG Sodium ABG Potassium ABG Glucose Oxyhemoglobin Carboxyhemoglobin Sodium Potassium Chloride Carbon Dioxide BUN Creatinine Glucose POC Glucose 143 H 157 H 171 H Lactic Acid Calcium Phosphorus Magnesium Ferritin Lactate Dehydrogenase C-Reactive Protein NT-Pro-B Natriuret Pep Total Protein Albumin Triglycerides Arterial Blood Glucose Urine pH Ur Specific [place] Coronavirus (PCR) 04/06/21 04/06/21 04/06/21 04:49 05:14 11:42 WBC RBC Hgb Hct MCV MCHC RDW Plt Count Lymph % (Auto) [place] % (Auto) Lymph # (Auto) [place] # (Auto) Seg Neutrophils % Seg Neuts % (Manual) Lymphocytes % (Manual) Monocytes % (Manual) Nucleated RBC % Seg Neutrophils # Seg Neutrophils # Man Lymphocytes # (Manual) Monocytes # (Manual) PT INR APTT D-Dimer Heparin Anti-Xa Level ABG pH POC ABG pCO2 57.4 H POC ABG pO2 55.1 L ABG pO2 ABG HCO3 ABG O2 Saturation ABG Base Excess ABG Hemoglobin 11.5 L ABG Oxyhemoglobin 87.5 L ABG Sodium ABG Potassium ABG Glucose Oxyhemoglobin Carboxyhemoglobin Sodium Potassium Chloride Carbon Dioxide BUN Creatinine Glucose POC Glucose 145 H 171 H Lactic Acid Calcium Phosphorus Magnesium Ferritin Lactate Dehydrogenase C-Reactive Protein NT-Pro-B Natriuret Pep Total Protein Albumin Triglycerides Arterial Blood Glucose Urine pH Ur Specific [place] Coronavirus (PCR) 04/06/21 04/06/21 04/06/21 11:50 15:36 15:36 WBC RBC Hgb 10.4 L Hct 32.5 L MCV MCHC RDW Plt Count 444 H Lymph % (Auto) [place] % (Auto) Lymph # (Auto) [place] # (Auto) Seg Neutrophils % Seg Neuts % (Manual) Lymphocytes % (Manual) Monocytes % (Manual) Nucleated RBC % Seg Neutrophils # Seg Neutrophils # Man Lymphocytes # (Manual) Monocytes # (Manual) PT INR APTT 37.1 H D-Dimer Heparin Anti-Xa Level ABG pH 7.341 L POC ABG pCO2 POC ABG pO2 ABG pO2 108.9 H ABG HCO3 38.9 H ABG O2 Saturation ABG Base Excess 10.6 H ABG Hemoglobin 11.5 L ABG Oxyhemoglobin ABG Sodium ABG Potassium ABG Glucose Oxyhemoglobin Carboxyhemoglobin Sodium Potassium Chloride Carbon Dioxide BUN Creatinine Glucose POC Glucose Lactic Acid Calcium Phosphorus Magnesium Ferritin Lactate Dehydrogenase C-Reactive Protein NT-Pro-B Natriuret Pep Total Protein Albumin Triglycerides Arterial Blood Glucose Urine pH Ur Specific [place] Coronavirus (PCR) 04/06/21 04/07/21 04/07/21 17:57 00:30 00:32 WBC RBC Hgb Hct MCV MCHC RDW Plt Count Lymph % (Auto) [place] % (Auto) Lymph # (Auto) [place] # (Auto) Seg Neutrophils % Seg Neuts % (Manual) Lymphocytes % (Manual) Monocytes % (Manual) Nucleated RBC % Seg Neutrophils # Seg Neutrophils # Man Lymphocytes # (Manual) Monocytes # (Manual) PT INR APTT D-Dimer Heparin Anti-Xa Level < 0.10 L ABG pH POC ABG pCO2 POC ABG pO2 ABG pO2 ABG HCO3 ABG O2 Saturation ABG Base Excess ABG Hemoglobin ABG Oxyhemoglobin ABG Sodium ABG Potassium ABG Glucose Oxyhemoglobin Carboxyhemoglobin Sodium Potassium Chloride Carbon Dioxide BUN Creatinine Glucose POC Glucose 151 H 149 H Lactic Acid Calcium Phosphorus Magnesium Ferritin Lactate Dehydrogenase C-Reactive Protein NT-Pro-B Natriuret Pep Total Protein Albumin Triglycerides Arterial Blood Glucose Urine pH Ur Specific [place] Coronavirus (PCR) 04/07/21 04/07/21 04/07/21 05:34 06:08 06:08 WBC RBC 3.20 L Hgb 9.6 L Hct 29.8 L MCV MCHC RDW 16.0 H Plt Count 455 H Lymph % (Auto) [place] % (Auto) Lymph # (Auto) [place] # (Auto) Seg Neutrophils % Seg Neuts % (Manual) Lymphocytes % (Manual) Monocytes % (Manual) Nucleated RBC % Seg Neutrophils # Seg Neutrophils # Man Lymphocytes # (Manual) Monocytes # (Manual) PT INR APTT D-Dimer Heparin Anti-Xa Level ABG pH POC ABG pCO2 POC ABG pO2 ABG pO2 ABG HCO3 ABG O2 Saturation ABG Base Excess ABG Hemoglobin ABG Oxyhemoglobin ABG Sodium ABG Potassium ABG Glucose Oxyhemoglobin Carboxyhemoglobin Sodium Potassium Chloride Carbon Dioxide 35 H BUN Creatinine 0.5 L Glucose 216 H POC Glucose 182 H Lactic Acid Calcium Phosphorus Magnesium Ferritin Lactate Dehydrogenase C-Reactive Protein NT-Pro-B Natriuret Pep Total Protein Albumin Triglycerides Arterial Blood Glucose Urine pH Ur Specific [place] Coronavirus (PCR) 04/07/21 04/07/21 04/07/21 07:55 11:57 17:12 WBC RBC Hgb Hct MCV MCHC RDW Plt Count Lymph % (Auto) [place] % (Auto) Lymph # (Auto) [place] # (Auto) Seg Neutrophils % Seg Neuts % (Manual) Lymphocytes % (Manual) Monocytes % (Manual) Nucleated RBC % Seg Neutrophils # Seg Neutrophils # Man Lymphocytes # (Manual) Monocytes # (Manual) PT INR APTT D-Dimer Heparin Anti-Xa Level < 0.10 L ABG pH POC ABG pCO2 POC ABG pO2 ABG pO2 ABG HCO3 ABG O2 Saturation ABG Base Excess ABG Hemoglobin ABG Oxyhemoglobin ABG Sodium ABG Potassium ABG Glucose Oxyhemoglobin Carboxyhemoglobin Sodium Potassium Chloride Carbon Dioxide BUN Creatinine Glucose POC Glucose 182 H 165 H Lactic Acid Calcium Phosphorus Magnesium Ferritin Lactate Dehydrogenase C-Reactive Protein NT-Pro-B Natriuret Pep Total Protein Albumin Triglycerides Arterial Blood Glucose Urine pH Ur Specific [place] Coronavirus (PCR) 04/07/21 04/08/21 04/08/21 19:55 00:16 03:57 WBC RBC Hgb Hct MCV MCHC RDW Plt Count Lymph % (Auto) [place] % (Auto) Lymph # (Auto) [place] # (Auto) Seg Neutrophils % Seg Neuts % (Manual) Lymphocytes % (Manual) Monocytes % (Manual) Nucleated RBC % Seg Neutrophils # Seg Neutrophils # Man Lymphocytes # (Manual) Monocytes # (Manual) PT INR APTT D-Dimer Heparin Anti-Xa Level < 0.10 L ABG pH POC ABG pCO2 POC ABG pO2 ABG pO2 ABG HCO3 ABG O2 Saturation ABG Base Excess ABG Hemoglobin ABG Oxyhemoglobin ABG Sodium ABG Potassium ABG Glucose Oxyhemoglobin Carboxyhemoglobin Sodium Potassium 5.8 H Chloride 95.5 L Carbon Dioxide 37 H BUN Creatinine 0.5 L Glucose 161 H POC Glucose 175 H Lactic Acid Calcium Phosphorus Magnesium Ferritin Lactate Dehydrogenase C-Reactive Protein NT-Pro-B Natriuret Pep Total Protein Albumin Triglycerides Arterial Blood Glucose Urine pH Ur Specific [place] Coronavirus (PCR) 04/08/21 04/08/21 04/08/21 04:00 05:43 09:26 WBC RBC 3.25 L Hgb 9.9 L Hct 30.8 L MCV 95 H MCHC RDW 16.0 H Plt Count 487 H Lymph % (Auto) [place] % (Auto) Lymph # (Auto) [place] # (Auto) Seg Neutrophils % Seg Neuts % (Manual) Lymphocytes % (Manual) Monocytes % (Manual) Nucleated RBC % Seg Neutrophils # Seg Neutrophils # Man Lymphocytes # (Manual) Monocytes # (Manual) PT INR APTT D-Dimer Heparin Anti-Xa Level ABG pH POC ABG pCO2 POC ABG pO2 ABG pO2 ABG HCO3 ABG O2 Saturation ABG Base Excess ABG Hemoglobin ABG Oxyhemoglobin ABG Sodium ABG Potassium ABG Glucose Oxyhemoglobin Carboxyhemoglobin Sodium Potassium Chloride Carbon Dioxide BUN Creatinine Glucose POC Glucose 162 H 164 H Lactic Acid Calcium Phosphorus Magnesium Ferritin Lactate Dehydrogenase C-Reactive Protein NT-Pro-B Natriuret Pep Total Protein Albumin Triglycerides Arterial Blood Glucose Urine pH Ur Specific [place] Coronavirus (PCR) 04/08/21 04/08/21 04/08/21 11:53 17:19 20:35 WBC RBC Hgb Hct MCV MCHC RDW Plt Count Lymph % (Auto) [place] % (Auto) Lymph # (Auto) [place] # (Auto) Seg Neutrophils % Seg Neuts % (Manual) Lymphocytes % (Manual) Monocytes % (Manual) Nucleated RBC % Seg Neutrophils # Seg Neutrophils # Man Lymphocytes # (Manual) Monocytes # (Manual) PT INR APTT D-Dimer Heparin Anti-Xa Level ABG pH POC ABG pCO2 POC ABG pO2 ABG pO2 ABG HCO3 ABG O2 Saturation ABG Base Excess ABG Hemoglobin ABG Oxyhemoglobin ABG Sodium ABG Potassium ABG Glucose Oxyhemoglobin Carboxyhemoglobin Sodium Potassium Chloride Carbon Dioxide BUN Creatinine Glucose POC Glucose 170 H 157 H 190 H Lactic Acid Calcium Phosphorus Magnesium Ferritin Lactate Dehydrogenase C-Reactive Protein NT-Pro-B Natriuret Pep Total Protein Albumin Triglycerides Arterial Blood Glucose Urine pH Ur Specific [place] Coronavirus (PCR) 04/08/21 04/09/21 04/09/21 23:52 04:21 04:21 WBC 11.4 H RBC 2.97 L Hgb 8.9 L Hct 27.8 L MCV MCHC RDW 15.8 H Plt Count 485 H Lymph % (Auto) [place] % (Auto) Lymph # (Auto) [place] # (Auto) Seg Neutrophils % Seg Neuts % (Manual) Lymphocytes % (Manual) Monocytes % (Manual) Nucleated RBC % Seg Neutrophils # Seg Neutrophils # Man Lymphocytes # (Manual) Monocytes # (Manual) PT INR APTT D-Dimer Heparin Anti-Xa Level ABG pH POC ABG pCO2 POC ABG pO2 ABG pO2 ABG HCO3 ABG O2 Saturation ABG Base Excess ABG Hemoglobin ABG Oxyhemoglobin ABG Sodium ABG Potassium ABG Glucose Oxyhemoglobin Carboxyhemoglobin Sodium Potassium Chloride 97.1 L Carbon Dioxide 40 H BUN 21 H Creatinine 0.5 L Glucose 149 H POC Glucose 170 H Lactic Acid Calcium Phosphorus 1.90 L D Magnesium Ferritin Lactate Dehydrogenase C-Reactive Protein NT-Pro-B Natriuret Pep Total Protein Albumin Triglycerides Arterial Blood Glucose Urine pH Ur Specific [place] Coronavirus (PCR) 04/09/21 04/09/21 04/09/21 05:27 11:55 17:11 WBC RBC Hgb Hct MCV MCHC RDW Plt Count Lymph % (Auto) [place] % (Auto) Lymph # (Auto) [place] # (Auto) Seg Neutrophils % Seg Neuts % (Manual) Lymphocytes % (Manual) Monocytes % (Manual) Nucleated RBC % Seg Neutrophils # Seg Neutrophils # Man Lymphocytes # (Manual) Monocytes # (Manual) PT INR APTT D-Dimer Heparin Anti-Xa Level ABG pH POC ABG pCO2 POC ABG pO2 ABG pO2 ABG HCO3 ABG O2 Saturation ABG Base Excess ABG Hemoglobin ABG Oxyhemoglobin ABG Sodium ABG Potassium ABG Glucose Oxyhemoglobin Carboxyhemoglobin Sodium Potassium Chloride Carbon Dioxide BUN Creatinine Glucose POC Glucose 144 H 190 H 163 H Lactic Acid Calcium Phosphorus Magnesium Ferritin Lactate Dehydrogenase C-Reactive Protein NT-Pro-B Natriuret Pep Total Protein Albumin Triglycerides Arterial Blood Glucose Urine pH Ur Specific [place] Coronavirus (PCR) 04/09/21 04/09/21 04/09/21 20:10 21:12 23:33 WBC RBC Hgb Hct MCV MCHC RDW Plt Count Lymph % (Auto) [place] % (Auto) Lymph # (Auto) [place] # (Auto) Seg Neutrophils % Seg Neuts % (Manual) Lymphocytes % (Manual) Monocytes % (Manual) Nucleated RBC % Seg Neutrophils # Seg Neutrophils # Man Lymphocytes # (Manual) Monocytes # (Manual) PT INR APTT D-Dimer Heparin Anti-Xa Level ABG pH POC ABG pCO2 POC ABG pO2 ABG pO2 68.1 L ABG HCO3 41.3 H ABG O2 Saturation ABG Base Excess 14.6 H ABG Hemoglobin 10.2 L ABG Oxyhemoglobin ABG Sodium ABG Potassium ABG Glucose Oxyhemoglobin 94.7 L Carboxyhemoglobin Sodium Potassium Chloride Carbon Dioxide BUN Creatinine Glucose POC Glucose 163 H 164 H Lactic Acid Calcium Phosphorus Magnesium Ferritin Lactate Dehydrogenase C-Reactive Protein NT-Pro-B Natriuret Pep Total Protein Albumin Triglycerides Arterial Blood Glucose Urine pH Ur Specific [place] Coronavirus (PCR) 04/10/21 04/10/21 04/10/21 05:26 11:41 13:00 WBC RBC 3.09 L Hgb 9.3 L Hct 28.3 L MCV MCHC RDW 15.8 H Plt Count 480 H Lymph % (Auto) [place] % (Auto) Lymph # (Auto) [place] # (Auto) Seg Neutrophils % Seg Neuts % (Manual) Lymphocytes % (Manual) Monocytes % (Manual) Nucleated RBC % Seg Neutrophils # Seg Neutrophils # Man Lymphocytes # (Manual) Monocytes # (Manual) PT INR APTT D-Dimer Heparin Anti-Xa Level ABG pH POC ABG pCO2 POC ABG pO2 ABG pO2 ABG HCO3 ABG O2 Saturation ABG Base Excess ABG Hemoglobin ABG Oxyhemoglobin ABG Sodium ABG Potassium ABG Glucose Oxyhemoglobin Carboxyhemoglobin Sodium Potassium Chloride Carbon Dioxide BUN Creatinine Glucose POC Glucose 172 H 150 H Lactic Acid Calcium Phosphorus Magnesium Ferritin Lactate Dehydrogenase C-Reactive Protein NT-Pro-B Natriuret Pep Total Protein Albumin Triglycerides Arterial Blood Glucose Urine pH Ur Specific [place] Coronavirus (PCR) 04/10/21 04/10/21 04/10/21 13:00 17:46 21:37 WBC RBC Hgb Hct MCV MCHC RDW Plt Count Lymph % (Auto) [place] % (Auto) Lymph # (Auto) [place] # (Auto) Seg Neutrophils % Seg Neuts % (Manual) Lymphocytes % (Manual) Monocytes % (Manual) Nucleated RBC % Seg Neutrophils # Seg Neutrophils # Man Lymphocytes # (Manual) Monocytes # (Manual) PT INR APTT D-Dimer Heparin Anti-Xa Level ABG pH POC ABG pCO2 POC ABG pO2 ABG pO2 ABG HCO3 ABG O2 Saturation ABG Base Excess ABG Hemoglobin ABG Oxyhemoglobin ABG Sodium ABG Potassium ABG Glucose Oxyhemoglobin Carboxyhemoglobin Sodium Potassium Chloride 96.4 L Carbon Dioxide 34 H BUN Creatinine 0.5 L Glucose 165 H POC Glucose 165 H 166 H Lactic Acid Calcium Phosphorus Magnesium Ferritin Lactate Dehydrogenase C-Reactive Protein NT-Pro-B Natriuret Pep Total Protein Albumin Triglycerides Arterial Blood Glucose Urine pH Ur Specific [place] Coronavirus (PCR) 04/10/21 04/11/21 04/11/21 23:56 04:30 05:39 WBC 11.5 H RBC 3.02 L Hgb 8.9 L Hct 27.8 L MCV MCHC RDW 16.0 H Plt Count 505 H Lymph % (Auto) [place] % (Auto) Lymph # (Auto) [place] # (Auto) Seg Neutrophils % Seg Neuts % (Manual) Lymphocytes % (Manual) Monocytes % (Manual) Nucleated RBC % Seg Neutrophils # Seg Neutrophils # Man Lymphocytes # (Manual) Monocytes # (Manual) PT INR APTT D-Dimer Heparin Anti-Xa Level ABG pH POC ABG pCO2 POC ABG pO2 ABG pO2 ABG HCO3 ABG O2 Saturation ABG Base Excess ABG Hemoglobin ABG Oxyhemoglobin ABG Sodium ABG Potassium ABG Glucose Oxyhemoglobin Carboxyhemoglobin Sodium Potassium Chloride Carbon Dioxide BUN Creatinine Glucose POC Glucose 156 H 164 H Lactic Acid Calcium Phosphorus Magnesium Ferritin Lactate Dehydrogenase C-Reactive Protein NT-Pro-B Natriuret Pep Total Protein Albumin Triglycerides Arterial Blood Glucose Urine pH Ur Specific [place] Coronavirus (PCR) 04/11/21 04/11/21 04/11/21 06:47 06:47 11:29 WBC RBC 3.35 L Hgb 9.8 L Hct 30.7 L MCV MCHC RDW 16.3 H Plt Count 520 H Lymph % (Auto) [place] % (Auto) Lymph # (Auto) [place] # (Auto) Seg Neutrophils % Seg Neuts % (Manual) 76.0 H Lymphocytes % (Manual) 10.0 L Monocytes % (Manual) Nucleated RBC % Seg Neutrophils # Seg Neutrophils # Man 8.3 H Lymphocytes # (Manual) 1.1 L Monocytes # (Manual) PT INR APTT D-Dimer Heparin Anti-Xa Level ABG pH POC ABG pCO2 POC ABG pO2 ABG pO2 ABG HCO3 ABG O2 Saturation ABG Base Excess ABG Hemoglobin ABG Oxyhemoglobin ABG Sodium ABG Potassium ABG Glucose Oxyhemoglobin Carboxyhemoglobin Sodium Potassium Chloride 97.7 L Carbon Dioxide 34 H BUN Creatinine 0.4 L Glucose 178 H POC Glucose 170 H Lactic Acid Calcium Phosphorus Magnesium Ferritin Lactate Dehydrogenase C-Reactive Protein NT-Pro-B Natriuret Pep Total Protein Albumin Triglycerides Arterial Blood Glucose Urine pH Ur Specific [place] Coronavirus (PCR) 04/11/21 04/11/21 04/11/21 18:17 18:17 18:17 WBC RBC 3.22 L Hgb 9.5 L Hct 29.8 L MCV MCHC RDW 16.0 H Plt Count Lymph % (Auto) [place] % (Auto) Lymph # (Auto) [place] # (Auto) Seg Neutrophils % Seg Neuts % (Manual) Lymphocytes % (Manual) Monocytes % (Manual) Nucleated RBC % Seg Neutrophils # Seg Neutrophils # Man Lymphocytes # (Manual) Monocytes # (Manual) PT INR APTT 61.1 H* D-Dimer Heparin Anti-Xa Level ABG pH POC ABG pCO2 POC ABG pO2 ABG pO2 ABG HCO3 ABG O2 Saturation ABG Base Excess ABG Hemoglobin ABG Oxyhemoglobin ABG Sodium ABG Potassium ABG Glucose Oxyhemoglobin Carboxyhemoglobin Sodium Potassium Chloride Carbon Dioxide BUN Creatinine 0.3 L Glucose POC Glucose Lactic Acid Calcium Phosphorus Magnesium Ferritin Lactate Dehydrogenase C-Reactive Protein NT-Pro-B Natriuret Pep Total Protein Albumin Triglycerides Arterial Blood Glucose Urine pH Ur Specific [place] Coronavirus (PCR) 04/11/21 04/12/21 04/12/21 18:25 00:19 05:11 WBC RBC 2.92 L Hgb 8.6 L Hct 26.9 L MCV MCHC RDW 16.3 H Plt Count 460 H Lymph % (Auto) [place] % (Auto) Lymph # (Auto) [place] # (Auto) Seg Neutrophils % Seg Neuts % (Manual) Lymphocytes % (Manual) Monocytes % (Manual) Nucleated RBC % Seg Neutrophils # Seg Neutrophils # Man Lymphocytes # (Manual) Monocytes # (Manual) PT INR APTT D-Dimer Heparin Anti-Xa Level ABG pH POC ABG pCO2 POC ABG pO2 ABG pO2 ABG HCO3 ABG O2 Saturation ABG Base Excess ABG Hemoglobin ABG Oxyhemoglobin ABG Sodium ABG Potassium ABG Glucose Oxyhemoglobin Carboxyhemoglobin Sodium Potassium Chloride Carbon Dioxide BUN Creatinine Glucose POC Glucose 167 H 128 H Lactic Acid Calcium Phosphorus Magnesium Ferritin Lactate Dehydrogenase C-Reactive Protein NT-Pro-B Natriuret Pep Total Protein Albumin Triglycerides Arterial Blood Glucose Urine pH Ur Specific [place] Coronavirus (PCR) 04/12/21 04/12/21 04/12/21 05:11 05:11 06:23 WBC RBC Hgb Hct MCV MCHC RDW Plt Count Lymph % (Auto) [place] % (Auto) Lymph # (Auto) [place] # (Auto) Seg Neutrophils % Seg Neuts % (Manual) Lymphocytes % (Manual) Monocytes % (Manual) Nucleated RBC % Seg Neutrophils # Seg Neutrophils # Man Lymphocytes # (Manual) Monocytes # (Manual) PT INR APTT D-Dimer Heparin Anti-Xa Level 1.03 H ABG pH POC ABG pCO2 POC ABG pO2 ABG pO2 ABG HCO3 ABG O2 Saturation ABG Base Excess ABG Hemoglobin ABG Oxyhemoglobin ABG Sodium ABG Potassium ABG Glucose Oxyhemoglobin Carboxyhemoglobin Sodium Potassium Chloride Carbon Dioxide 34 H BUN Creatinine 0.3 L Glucose 153 H POC Glucose 162 H Lactic Acid Calcium Phosphorus Magnesium Ferritin Lactate Dehydrogenase C-Reactive Protein NT-Pro-B Natriuret Pep Total Protein Albumin Triglycerides Arterial Blood Glucose Urine pH Ur Specific [place] Coronavirus (PCR) 04/12/21 04/12/21 04/12/21 09:45 11:08 15:56 WBC RBC Hgb Hct MCV MCHC RDW Plt Count Lymph % (Auto) [place] % (Auto) Lymph # (Auto) [place] # (Auto) Seg Neutrophils % Seg Neuts % (Manual) Lymphocytes % (Manual) Monocytes % (Manual) Nucleated RBC % Seg Neutrophils # Seg Neutrophils # Man Lymphocytes # (Manual) Monocytes # (Manual) PT INR APTT D-Dimer Heparin Anti-Xa Level ABG pH POC ABG pCO2 POC ABG pO2 ABG pO2 70.8 L ABG HCO3 41.0 H ABG O2 Saturation ABG Base Excess 13.7 H ABG Hemoglobin 8.3 L ABG Oxyhemoglobin ABG Sodium ABG Potassium ABG Glucose Oxyhemoglobin 94.0 L Carboxyhemoglobin Sodium Potassium Chloride Carbon Dioxide BUN Creatinine Glucose POC Glucose 174 H 146 H Lactic Acid Calcium Phosphorus Magnesium Ferritin Lactate Dehydrogenase C-Reactive Protein NT-Pro-B Natriuret Pep Total Protein Albumin Triglycerides Arterial Blood Glucose Urine pH Ur Specific [place] Coronavirus (PCR) 04/12/21 04/12/21 04/13/21 21:55 23:25 04:34 WBC 12.5 H RBC 2.97 L Hgb 8.9 L Hct 27.3 L MCV MCHC RDW 16.4 H Plt Count 470 H Lymph % (Auto) [place] % (Auto) Lymph # (Auto) [place] # (Auto) Seg Neutrophils % Seg Neuts % (Manual) Lymphocytes % (Manual) Monocytes % (Manual) Nucleated RBC % Seg Neutrophils # Seg Neutrophils # Man Lymphocytes # (Manual) Monocytes # (Manual) PT INR APTT D-Dimer Heparin Anti-Xa Level ABG pH POC ABG pCO2 POC ABG pO2 ABG pO2 ABG HCO3 ABG O2 Saturation ABG Base Excess ABG Hemoglobin ABG Oxyhemoglobin ABG Sodium ABG Potassium ABG Glucose Oxyhemoglobin Carboxyhemoglobin Sodium Potassium Chloride Carbon Dioxide BUN Creatinine Glucose POC Glucose 142 H 170 H Lactic Acid Calcium Phosphorus Magnesium Ferritin Lactate Dehydrogenase C-Reactive Protein NT-Pro-B Natriuret Pep Total Protein Albumin Triglycerides Arterial Blood Glucose Urine pH Ur Specific [place] Coronavirus (PCR) 04/13/21 04/13/21 04/13/21 04:34 05:17 11:14 WBC RBC Hgb Hct MCV MCHC RDW Plt Count Lymph % (Auto) [place] % (Auto) Lymph # (Auto) [place] # (Auto) Seg Neutrophils % Seg Neuts % (Manual) Lymphocytes % (Manual) Monocytes % (Manual) Nucleated RBC % Seg Neutrophils # Seg Neutrophils # Man Lymphocytes # (Manual) Monocytes # (Manual) PT INR APTT D-Dimer Heparin Anti-Xa Level ABG pH POC ABG pCO2 POC ABG pO2 ABG pO2 ABG HCO3 ABG O2 Saturation ABG Base Excess ABG Hemoglobin ABG Oxyhemoglobin ABG Sodium ABG Potassium ABG Glucose Oxyhemoglobin Carboxyhemoglobin Sodium Potassium Chloride 96.6 L Carbon Dioxide 41 H* D BUN Creatinine 0.3 L Glucose 171 H POC Glucose 141 H 149 H Lactic Acid Calcium Phosphorus Magnesium Ferritin Lactate Dehydrogenase C-Reactive Protein NT-Pro-B Natriuret Pep Total Protein Albumin Triglycerides Arterial Blood Glucose Urine pH Ur Specific [place] Coronavirus (PCR) 04/13/21 04/13/21 04/14/21 15:51 23:35 04:32 WBC 13.8 H RBC 2.64 L Hgb 8.0 L Hct 24.1 L MCV MCHC RDW 16.1 H Plt Count Lymph % (Auto) [place] % (Auto) Lymph # (Auto) [place] # (Auto) Seg Neutrophils % Seg Neuts % (Manual) Lymphocytes % (Manual) Monocytes % (Manual) Nucleated RBC % Seg Neutrophils # Seg Neutrophils # Man Lymphocytes # (Manual) Monocytes # (Manual) PT INR APTT D-Dimer Heparin Anti-Xa Level ABG pH POC ABG pCO2 POC ABG pO2 ABG pO2 ABG HCO3 ABG O2 Saturation ABG Base Excess ABG Hemoglobin ABG Oxyhemoglobin ABG Sodium ABG Potassium ABG Glucose Oxyhemoglobin Carboxyhemoglobin Sodium Potassium Chloride Carbon Dioxide BUN Creatinine Glucose POC Glucose 136 H 167 H Lactic Acid Calcium Phosphorus Magnesium Ferritin Lactate Dehydrogenase C-Reactive Protein NT-Pro-B Natriuret Pep Total Protein Albumin Triglycerides Arterial Blood Glucose Urine pH Ur Specific [place] Coronavirus (PCR) 04/14/21 04/14/21 04/14/21 04:32 05:18 11:03 WBC RBC Hgb Hct MCV MCHC RDW Plt Count Lymph % (Auto) [place] % (Auto) Lymph # (Auto) [place] # (Auto) Seg Neutrophils % Seg Neuts % (Manual) Lymphocytes % (Manual) Monocytes % (Manual) Nucleated RBC % Seg Neutrophils # Seg Neutrophils # Man Lymphocytes # (Manual) Monocytes # (Manual) PT INR APTT D-Dimer Heparin Anti-Xa Level ABG pH POC ABG pCO2 POC ABG pO2 ABG pO2 ABG HCO3 ABG O2 Saturation ABG Base Excess ABG Hemoglobin ABG Oxyhemoglobin ABG Sodium ABG Potassium ABG Glucose Oxyhemoglobin Carboxyhemoglobin Sodium Potassium Chloride 95.5 L Carbon Dioxide 38 H BUN Creatinine 0.4 L Glucose 141 H POC Glucose 140 H 143 H Lactic Acid Calcium Phosphorus Magnesium Ferritin Lactate Dehydrogenase C-Reactive Protein NT-Pro-B Natriuret Pep Total Protein Albumin Triglycerides Arterial Blood Glucose Urine pH Ur Specific [place] Coronavirus (PCR) 04/14/21 04/14/21 04/14/21 16:38 23:46 Unknown WBC RBC Hgb Hct MCV MCHC RDW Plt Count Lymph % (Auto) [place] % (Auto) Lymph # (Auto) [place] # (Auto) Seg Neutrophils % Seg Neuts % (Manual) Lymphocytes % (Manual) Monocytes % (Manual) Nucleated RBC % Seg Neutrophils # Seg Neutrophils # Man Lymphocytes # (Manual) Monocytes # (Manual) PT INR APTT D-Dimer Heparin Anti-Xa Level ABG pH POC ABG pCO2 POC ABG pO2 ABG pO2 ABG HCO3 ABG O2 Saturation ABG Base Excess ABG Hemoglobin ABG Oxyhemoglobin ABG Sodium ABG Potassium ABG Glucose Oxyhemoglobin Carboxyhemoglobin Sodium Potassium Chloride Carbon Dioxide BUN Creatinine Glucose POC Glucose 157 H 155 H Lactic Acid Calcium Phosphorus Magnesium Ferritin Lactate Dehydrogenase C-Reactive Protein NT-Pro-B Natriuret Pep Total Protein Albumin Triglycerides Arterial Blood Glucose Urine pH 8.0 H Ur Specific [place] Coronavirus (PCR) 04/15/21 04/15/21 04/15/21 04:44 04:44 05:52 WBC 15.8 H RBC 2.96 L Hgb 8.9 L Hct 27.1 L MCV MCHC RDW 16.5 H Plt Count 507 H Lymph % (Auto) [place] % (Auto) Lymph # (Auto) [place] # (Auto) Seg Neutrophils % Seg Neuts % (Manual) Lymphocytes % (Manual) Monocytes % (Manual) Nucleated RBC % Seg Neutrophils # Seg Neutrophils # Man Lymphocytes # (Manual) Monocytes # (Manual) PT INR APTT D-Dimer Heparin Anti-Xa Level ABG pH POC ABG pCO2 POC ABG pO2 ABG pO2 ABG HCO3 ABG O2 Saturation ABG Base Excess ABG Hemoglobin ABG Oxyhemoglobin ABG Sodium ABG Potassium ABG Glucose Oxyhemoglobin Carboxyhemoglobin Sodium Potassium Chloride 96.9 L Carbon Dioxide 38 H BUN Creatinine 0.4 L Glucose 163 H POC Glucose 167 H Lactic Acid Calcium Phosphorus Magnesium Ferritin Lactate Dehydrogenase C-Reactive Protein NT-Pro-B Natriuret Pep Total Protein Albumin Triglycerides Arterial Blood Glucose Urine pH Ur Specific [place] Coronavirus (PCR) 04/15/21 04/15/21 04/15/21 11:35 17:20 18:10 WBC RBC Hgb Hct MCV MCHC RDW Plt Count Lymph % (Auto) [place] % (Auto) Lymph # (Auto) [place] # (Auto) Seg Neutrophils % Seg Neuts % (Manual) Lymphocytes % (Manual) Monocytes % (Manual) Nucleated RBC % Seg Neutrophils # Seg Neutrophils # Man Lymphocytes # (Manual) Monocytes # (Manual) PT INR APTT D-Dimer Heparin Anti-Xa Level ABG pH 7.477 H POC ABG pCO2 POC ABG pO2 ABG pO2 ABG HCO3 40.6 H ABG O2 Saturation ABG Base Excess 15.2 H ABG Hemoglobin 9.0 L ABG Oxyhemoglobin ABG Sodium ABG Potassium ABG Glucose Oxyhemoglobin 94.7 L Carboxyhemoglobin Sodium Potassium Chloride Carbon Dioxide BUN Creatinine Glucose POC Glucose 179 H 165 H Lactic Acid Calcium Phosphorus Magnesium Ferritin Lactate Dehydrogenase C-Reactive Protein NT-Pro-B Natriuret Pep Total Protein Albumin Triglycerides Arterial Blood Glucose Urine pH Ur Specific [place] Coronavirus (PCR) 04/15/21 04/16/21 04/16/21 23:39 04:33 04:33 WBC 13.1 H RBC 3.26 L Hgb 9.5 L Hct 30.2 L MCV MCHC 31 L RDW 16.2 H Plt Count Lymph % (Auto) [place] % (Auto) Lymph # (Auto) [place] # (Auto) Seg Neutrophils % Seg Neuts % (Manual) Lymphocytes % (Manual) Monocytes % (Manual) Nucleated RBC % Seg Neutrophils # Seg Neutrophils # Man Lymphocytes # (Manual) Monocytes # (Manual) PT INR APTT D-Dimer Heparin Anti-Xa Level ABG pH POC ABG pCO2 POC ABG pO2 ABG pO2 ABG HCO3 ABG O2 Saturation ABG Base Excess ABG Hemoglobin ABG Oxyhemoglobin ABG Sodium ABG Potassium ABG Glucose Oxyhemoglobin Carboxyhemoglobin Sodium Potassium Chloride 95.8 L Carbon Dioxide 34 H BUN 24 H Creatinine 0.4 L Glucose 153 H POC Glucose 155 H Lactic Acid Calcium Phosphorus Magnesium 2.40 H Ferritin Lactate Dehydrogenase C-Reactive Protein NT-Pro-B Natriuret Pep Total Protein Albumin Triglycerides Arterial Blood Glucose Urine pH Ur Specific [place] Coronavirus (PCR) 04/16/21 04/16/21 04/16/21 04:55 05:29 11:02 WBC RBC Hgb Hct MCV MCHC RDW Plt Count Lymph % (Auto) [place] % (Auto) Lymph # (Auto) [place] # (Auto) Seg Neutrophils % Seg Neuts % (Manual) Lymphocytes % (Manual) Monocytes % (Manual) Nucleated RBC % Seg Neutrophils # Seg Neutrophils # Man Lymphocytes # (Manual) Monocytes # (Manual) PT INR APTT D-Dimer Heparin Anti-Xa Level ABG pH 7.487 H POC ABG pCO2 POC ABG pO2 ABG pO2 75.4 L ABG HCO3 40.6 H ABG O2 Saturation ABG Base Excess 15.3 H ABG Hemoglobin 8.9 L ABG Oxyhemoglobin ABG Sodium ABG Potassium ABG Glucose Oxyhemoglobin Carboxyhemoglobin Sodium Potassium Chloride Carbon Dioxide BUN Creatinine Glucose POC Glucose 168 H 170 H Lactic Acid Calcium Phosphorus Magnesium Ferritin Lactate Dehydrogenase C-Reactive Protein NT-Pro-B Natriuret Pep Total Protein Albumin Triglycerides Arterial Blood Glucose Urine pH Ur Specific [place] Coronavirus (PCR) 04/16/21 04/16/21 04/17/21 16:13 23:41 04:25 WBC 12.5 H RBC 3.00 L Hgb 8.9 L Hct 27.2 L MCV MCHC RDW 16.0 H Plt Count Lymph % (Auto) [place] % (Auto) Lymph # (Auto) [place] # (Auto) Seg Neutrophils % Seg Neuts % (Manual) Lymphocytes % (Manual) Monocytes % (Manual) Nucleated RBC % Seg Neutrophils # Seg Neutrophils # Man Lymphocytes # (Manual) Monocytes # (Manual) PT INR APTT D-Dimer Heparin Anti-Xa Level ABG pH POC ABG pCO2 POC ABG pO2 ABG pO2 ABG HCO3 ABG O2 Saturation ABG Base Excess ABG Hemoglobin ABG Oxyhemoglobin ABG Sodium ABG Potassium ABG Glucose Oxyhemoglobin Carboxyhemoglobin Sodium Potassium Chloride Carbon Dioxide BUN Creatinine Glucose POC Glucose 167 H 150 H Lactic Acid Calcium Phosphorus Magnesium Ferritin Lactate Dehydrogenase C-Reactive Protein NT-Pro-B Natriuret Pep Total Protein Albumin Triglycerides Arterial Blood Glucose Urine pH Ur Specific [place] Coronavirus (PCR) 04/17/21 04/17/21 04/17/21 04:25 05:23 11:18 WBC RBC Hgb Hct MCV MCHC RDW Plt Count Lymph % (Auto) [place] % (Auto) Lymph # (Auto) [place] # (Auto) Seg Neutrophils % Seg Neuts % (Manual) Lymphocytes % (Manual) Monocytes % (Manual) Nucleated RBC % Seg Neutrophils # Seg Neutrophils # Man Lymphocytes # (Manual) Monocytes # (Manual) PT INR APTT D-Dimer Heparin Anti-Xa Level ABG pH POC ABG pCO2 POC ABG pO2 ABG pO2 ABG HCO3 ABG O2 Saturation ABG Base Excess ABG Hemoglobin ABG Oxyhemoglobin ABG Sodium ABG Potassium ABG Glucose Oxyhemoglobin Carboxyhemoglobin Sodium 136 L Potassium Chloride 92.4 L Carbon Dioxide 36 H BUN 23 H Creatinine 0.4 L Glucose 145 H POC Glucose 128 H 163 H Lactic Acid Calcium Phosphorus Magnesium Ferritin Lactate Dehydrogenase C-Reactive Protein NT-Pro-B Natriuret Pep Total Protein Albumin Triglycerides Arterial Blood Glucose Urine pH Ur Specific [place] Coronavirus (PCR) 04/17/21 04/17/21 04/18/21 16:50 21:04 00:18 WBC RBC Hgb Hct MCV MCHC RDW Plt Count Lymph % (Auto) [place] % (Auto) Lymph # (Auto) [place] # (Auto) Seg Neutrophils % Seg Neuts % (Manual) Lymphocytes % (Manual) Monocytes % (Manual) Nucleated RBC % Seg Neutrophils # Seg Neutrophils # Man Lymphocytes # (Manual) Monocytes # (Manual) PT INR APTT D-Dimer Heparin Anti-Xa Level ABG pH POC ABG pCO2 POC ABG pO2 ABG pO2 ABG HCO3 ABG O2 Saturation ABG Base Excess ABG Hemoglobin ABG Oxyhemoglobin ABG Sodium ABG Potassium ABG Glucose Oxyhemoglobin Carboxyhemoglobin Sodium Potassium Chloride Carbon Dioxide BUN Creatinine Glucose POC Glucose 137 H 186 H 194 H Lactic Acid Calcium Phosphorus Magnesium Ferritin Lactate Dehydrogenase C-Reactive Protein NT-Pro-B Natriuret Pep Total Protein Albumin Triglycerides Arterial Blood Glucose Urine pH Ur Specific [place] Coronavirus (PCR) 04/18/21 04/18/21 04/18/21 04:20 04:20 05:21 WBC 14.2 H RBC 2.92 L Hgb 8.5 L Hct 26.3 L MCV MCHC RDW 16.1 H Plt Count Lymph % (Auto) [place] % (Auto) Lymph # (Auto) [place] # (Auto) Seg Neutrophils % Seg Neuts % (Manual) Lymphocytes % (Manual) Monocytes % (Manual) Nucleated RBC % Seg Neutrophils # Seg Neutrophils # Man Lymphocytes # (Manual) Monocytes # (Manual) PT INR APTT D-Dimer Heparin Anti-Xa Level ABG pH POC ABG pCO2 POC ABG pO2 ABG pO2 ABG HCO3 ABG O2 Saturation ABG Base Excess ABG Hemoglobin ABG Oxyhemoglobin ABG Sodium ABG Potassium ABG Glucose Oxyhemoglobin Carboxyhemoglobin Sodium Potassium Chloride 95.7 L Carbon Dioxide 33 H BUN 21 H Creatinine 0.3 L Glucose 120 H POC Glucose 107 H Lactic Acid Calcium Phosphorus Magnesium Ferritin Lactate Dehydrogenase C-Reactive Protein NT-Pro-B Natriuret Pep Total Protein Albumin Triglycerides Arterial Blood Glucose Urine pH Ur Specific [place] Coronavirus (PCR) 04/18/21 04/18/21 04/18/21 05:26 11:30 11:33 WBC RBC Hgb Hct MCV MCHC RDW Plt Count Lymph % (Auto) [place] % (Auto) Lymph # (Auto) [place] # (Auto) Seg Neutrophils % Seg Neuts % (Manual) Lymphocytes % (Manual) Monocytes % (Manual) Nucleated RBC % Seg Neutrophils # Seg Neutrophils # Man Lymphocytes # (Manual) Monocytes # (Manual) PT INR APTT D-Dimer Heparin Anti-Xa Level ABG pH 7.469 H POC ABG pCO2 POC ABG pO2 ABG pO2 108.9 H ABG HCO3 36.2 H ABG O2 Saturation ABG Base Excess 11.2 H ABG Hemoglobin 8.8 L ABG Oxyhemoglobin ABG Sodium ABG Potassium ABG Glucose Oxyhemoglobin Carboxyhemoglobin Sodium Potassium Chloride Carbon Dioxide BUN Creatinine Glucose POC Glucose 111 H 113 H Lactic Acid Calcium Phosphorus Magnesium Ferritin Lactate Dehydrogenase C-Reactive Protein NT-Pro-B Natriuret Pep Total Protein Albumin Triglycerides Arterial Blood Glucose Urine pH Ur Specific [place] Coronavirus (PCR) 04/18/21 04/18/21 04/19/21 16:53 23:26 04:26 WBC 13.6 H RBC 2.69 L Hgb 8.5 L Hct 24.4 L MCV MCHC 35 H RDW 15.9 H Plt Count Lymph % (Auto) [place] % (Auto) Lymph # (Auto) [place] # (Auto) Seg Neutrophils % Seg Neuts % (Manual) Lymphocytes % (Manual) Monocytes % (Manual) Nucleated RBC % Seg Neutrophils # Seg Neutrophils # Man Lymphocytes # (Manual) Monocytes # (Manual) PT INR APTT D-Dimer Heparin Anti-Xa Level ABG pH POC ABG pCO2 POC ABG pO2 ABG pO2 ABG HCO3 ABG O2 Saturation ABG Base Excess ABG Hemoglobin ABG Oxyhemoglobin ABG Sodium ABG Potassium ABG Glucose Oxyhemoglobin Carboxyhemoglobin Sodium Potassium Chloride Carbon Dioxide BUN Creatinine Glucose POC Glucose 139 H 137 H Lactic Acid Calcium Phosphorus Magnesium Ferritin Lactate Dehydrogenase C-Reactive Protein NT-Pro-B Natriuret Pep Total Protein Albumin Triglycerides Arterial Blood Glucose Urine pH Ur Specific [place] Coronavirus (PCR) 04/19/21 04/19/21 04/19/21 04:26 05:16 11:01 WBC RBC Hgb Hct MCV MCHC RDW Plt Count Lymph % (Auto) [place] % (Auto) Lymph # (Auto) [place] # (Auto) Seg Neutrophils % Seg Neuts % (Manual) Lymphocytes % (Manual) Monocytes % (Manual) Nucleated RBC % Seg Neutrophils # Seg Neutrophils # Man Lymphocytes # (Manual) Monocytes # (Manual) PT INR APTT D-Dimer Heparin Anti-Xa Level ABG pH POC ABG pCO2 POC ABG pO2 ABG pO2 ABG HCO3 ABG O2 Saturation ABG Base Excess ABG Hemoglobin ABG Oxyhemoglobin ABG Sodium ABG Potassium ABG Glucose Oxyhemoglobin Carboxyhemoglobin Sodium Potassium Chloride Carbon Dioxide BUN Creatinine 0.3 L Glucose 163 H POC Glucose 154 H 164 H Lactic Acid Calcium Phosphorus Magnesium Ferritin Lactate Dehydrogenase C-Reactive Protein NT-Pro-B Natriuret Pep Total Protein Albumin Triglycerides Arterial Blood Glucose Urine pH Ur Specific [place] Coronavirus (PCR) 04/19/21 04/19/21 04/19/21 15:55 21:00 23:13 WBC RBC Hgb Hct MCV MCHC RDW Plt Count Lymph % (Auto) [place] % (Auto) Lymph # (Auto) [place] # (Auto) Seg Neutrophils % Seg Neuts % (Manual) Lymphocytes % (Manual) Monocytes % (Manual) Nucleated RBC % Seg Neutrophils # Seg Neutrophils # Man Lymphocytes # (Manual) Monocytes # (Manual) PT INR APTT D-Dimer Heparin Anti-Xa Level ABG pH POC ABG pCO2 POC ABG pO2 ABG pO2 ABG HCO3 ABG O2 Saturation ABG Base Excess ABG Hemoglobin ABG Oxyhemoglobin ABG Sodium ABG Potassium ABG Glucose Oxyhemoglobin Carboxyhemoglobin Sodium Potassium Chloride Carbon Dioxide BUN Creatinine Glucose POC Glucose 138 H 151 H 147 H Lactic Acid Calcium Phosphorus Magnesium Ferritin Lactate Dehydrogenase C-Reactive Protein NT-Pro-B Natriuret Pep Total Protein Albumin Triglycerides Arterial Blood Glucose Urine pH Ur Specific [place] Coronavirus (PCR) 04/20/21 04/20/21 04/20/21 04:17 04:17 05:15 WBC 13.1 H RBC 2.94 L Hgb 8.8 L Hct 26.8 L MCV MCHC RDW 16.2 H Plt Count Lymph % (Auto) [place] % (Auto) Lymph # (Auto) [place] # (Auto) Seg Neutrophils % Seg Neuts % (Manual) Lymphocytes % (Manual) Monocytes % (Manual) Nucleated RBC % Seg Neutrophils # Seg Neutrophils # Man Lymphocytes # (Manual) Monocytes # (Manual) PT INR APTT D-Dimer Heparin Anti-Xa Level ABG pH POC ABG pCO2 POC ABG pO2 ABG pO2 ABG HCO3 ABG O2 Saturation ABG Base Excess ABG Hemoglobin ABG Oxyhemoglobin ABG Sodium ABG Potassium ABG Glucose Oxyhemoglobin Carboxyhemoglobin Sodium 135 L Potassium Chloride Carbon Dioxide BUN Creatinine 0.3 L Glucose 151 H POC Glucose 126 H Lactic Acid Calcium 8.3 L Phosphorus Magnesium Ferritin Lactate Dehydrogenase C-Reactive Protein NT-Pro-B Natriuret Pep Total Protein Albumin Triglycerides Arterial Blood Glucose Urine pH Ur Specific [place] Coronavirus (PCR) 02/24/22 02/24/22 02/24/22 11:03 16:01 23:54 WBC RBC Hgb Hct MCV MCHC RDW Plt Count Lymph % (Auto) [place] % (Auto) Lymph # (Auto) [place] # (Auto) Seg Neutrophils % Seg Neuts % (Manual) Lymphocytes % (Manual) Monocytes % (Manual) Nucleated RBC % Seg Neutrophils # Seg Neutrophils # Man Lymphocytes # (Manual) Monocytes # (Manual) PT INR APTT D-Dimer Heparin Anti-Xa Level ABG pH POC ABG pCO2 POC ABG pO2 ABG pO2 ABG HCO3 ABG O2 Saturation ABG Base Excess ABG Hemoglobin ABG Oxyhemoglobin ABG Sodium ABG Potassium ABG Glucose Oxyhemoglobin Carboxyhemoglobin Sodium Potassium Chloride Carbon Dioxide BUN Creatinine Glucose POC Glucose 154 H 152 H 145 H Lactic Acid Calcium Phosphorus Magnesium Ferritin Lactate Dehydrogenase C-Reactive Protein NT-Pro-B Natriuret Pep Total Protein Albumin Triglycerides Arterial Blood Glucose Urine pH Ur Specific [place] Coronavirus (PCR) 04/21/21 04/21/21 04/21/21 04:39 11:20 11:37 WBC RBC Hgb Hct MCV MCHC RDW Plt Count Lymph % (Auto) [place] % (Auto) Lymph # (Auto) [place] # (Auto) Seg Neutrophils % Seg Neuts % (Manual) Lymphocytes % (Manual) Monocytes % (Manual) Nucleated RBC % Seg Neutrophils # Seg Neutrophils # Man Lymphocytes # (Manual) Monocytes # (Manual) PT INR APTT D-Dimer Heparin Anti-Xa Level ABG pH 7.503 H POC ABG pCO2 POC ABG pO2 ABG pO2 ABG HCO3 ABG O2 Saturation ABG Base Excess ABG Hemoglobin 10.8 L ABG Oxyhemoglobin ABG Sodium ABG Potassium ABG Glucose Oxyhemoglobin Carboxyhemoglobin 0.1 L Sodium Potassium Chloride Carbon Dioxide BUN Creatinine 0.3 L Glucose 174 H POC Glucose 147 H Lactic Acid Calcium Phosphorus Magnesium Ferritin Lactate Dehydrogenase C-Reactive Protein NT-Pro-B Natriuret Pep Total Protein Albumin Triglycerides Arterial Blood Glucose Urine pH Ur Specific [place] Coronavirus (PCR) 04/21/21 04/21/21 04/21/21 11:48 12:11 17:56 WBC 14.5 H RBC 3.08 L Hgb 9.3 L Hct 28.2 L MCV MCHC RDW 16.5 H Plt Count Lymph % (Auto) [place] % (Auto) Lymph # (Auto) [place] # (Auto) Seg Neutrophils % Seg Neuts % (Manual) Lymphocytes % (Manual) Monocytes % (Manual) Nucleated RBC % Seg Neutrophils # Seg Neutrophils # Man Lymphocytes # (Manual) Monocytes # (Manual) PT INR APTT D-Dimer Heparin Anti-Xa Level ABG pH POC ABG pCO2 POC ABG pO2 ABG pO2 ABG HCO3 ABG O2 Saturation ABG Base Excess ABG Hemoglobin ABG Oxyhemoglobin ABG Sodium ABG Potassium ABG Glucose Oxyhemoglobin Carboxyhemoglobin Sodium Potassium Chloride Carbon Dioxide BUN Creatinine Glucose POC Glucose 154 H 138 H Lactic Acid Calcium Phosphorus Magnesium Ferritin Lactate Dehydrogenase C-Reactive Protein NT-Pro-B Natriuret Pep Total Protein Albumin Triglycerides Arterial Blood Glucose Urine pH Ur Specific [place] Coronavirus (PCR) 04/21/21 04/22/21 04/22/21 23:31 04:30 04:30 WBC 12.3 H RBC 3.20 L Hgb 9.5 L Hct 29.3 L MCV MCHC RDW 16.6 H Plt Count Lymph % (Auto) [place] % (Auto) Lymph # (Auto) [place] # (Auto) Seg Neutrophils % Seg Neuts % (Manual) Lymphocytes % (Manual) Monocytes % (Manual) Nucleated RBC % Seg Neutrophils # Seg Neutrophils # Man Lymphocytes # (Manual) Monocytes # (Manual) PT INR APTT D-Dimer Heparin Anti-Xa Level ABG pH POC ABG pCO2 POC ABG pO2 ABG pO2 ABG HCO3 ABG O2 Saturation ABG Base Excess ABG Hemoglobin ABG Oxyhemoglobin ABG Sodium ABG Potassium ABG Glucose Oxyhemoglobin Carboxyhemoglobin Sodium Potassium Chloride Carbon Dioxide BUN Creatinine 0.3 L Glucose 125 H POC Glucose 162 H Lactic Acid Calcium Phosphorus Magnesium Ferritin Lactate Dehydrogenase C-Reactive Protein NT-Pro-B Natriuret Pep Total Protein Albumin Triglycerides Arterial Blood Glucose Urine pH Ur Specific [place] Coronavirus (PCR) 04/22/21 04/22/21 04/22/21 05:17 12:03 17:22 WBC RBC Hgb Hct MCV MCHC RDW Plt Count Lymph % (Auto) [place] % (Auto) Lymph # (Auto) [place] # (Auto) Seg Neutrophils % Seg Neuts % (Manual) Lymphocytes % (Manual) Monocytes % (Manual) Nucleated RBC % Seg Neutrophils # Seg Neutrophils # Man Lymphocytes # (Manual) Monocytes # (Manual) PT INR APTT D-Dimer Heparin Anti-Xa Level ABG pH POC ABG pCO2 POC ABG pO2 ABG pO2 ABG HCO3 ABG O2 Saturation ABG Base Excess ABG Hemoglobin ABG Oxyhemoglobin ABG Sodium ABG Potassium ABG Glucose Oxyhemoglobin Carboxyhemoglobin Sodium Potassium Chloride Carbon Dioxide BUN Creatinine Glucose POC Glucose 112 H 156 H 133 H Lactic Acid Calcium Phosphorus Magnesium Ferritin Lactate Dehydrogenase C-Reactive Protein NT-Pro-B Natriuret Pep Total Protein Albumin Triglycerides Arterial Blood Glucose Urine pH Ur Specific [place] Coronavirus (PCR) 04/23/21 04/23/21 04/23/21 00:58 05:08 12:59 WBC RBC Hgb Hct MCV MCHC RDW Plt Count Lymph % (Auto) [place] % (Auto) Lymph # (Auto) [place] # (Auto) Seg Neutrophils % Seg Neuts % (Manual) Lymphocytes % (Manual) Monocytes % (Manual) Nucleated RBC % Seg Neutrophils # Seg Neutrophils # Man Lymphocytes # (Manual) Monocytes # (Manual) PT INR APTT D-Dimer Heparin Anti-Xa Level ABG pH POC ABG pCO2 POC ABG pO2 ABG pO2 ABG HCO3 ABG O2 Saturation ABG Base Excess ABG Hemoglobin ABG Oxyhemoglobin ABG Sodium ABG Potassium ABG Glucose Oxyhemoglobin Carboxyhemoglobin Sodium Potassium Chloride Carbon Dioxide BUN Creatinine Glucose POC Glucose 133 H 156 H 139 H Lactic Acid Calcium Phosphorus Magnesium Ferritin Lactate Dehydrogenase C-Reactive Protein NT-Pro-B Natriuret Pep Total Protein Albumin Triglycerides Arterial Blood Glucose Urine pH Ur Specific [place] Coronavirus (PCR) 04/23/21 04/23/21 04/24/21 18:12 23:41 04:00 WBC 12.9 H RBC 3.33 L Hgb 10.2 L Hct 30.1 L MCV MCHC RDW 16.6 H Plt Count Lymph % (Auto) [place] % (Auto) Lymph # (Auto) [place] # (Auto) Seg Neutrophils % Seg Neuts % (Manual) Lymphocytes % (Manual) Monocytes % (Manual) Nucleated RBC % Seg Neutrophils # Seg Neutrophils # Man Lymphocytes # (Manual) Monocytes # (Manual) PT INR APTT D-Dimer Heparin Anti-Xa Level ABG pH POC ABG pCO2 POC ABG pO2 ABG pO2 ABG HCO3 ABG O2 Saturation ABG Base Excess ABG Hemoglobin ABG Oxyhemoglobin ABG Sodium ABG Potassium ABG Glucose Oxyhemoglobin Carboxyhemoglobin Sodium Potassium Chloride Carbon Dioxide BUN Creatinine Glucose POC Glucose 148 H 127 H Lactic Acid Calcium Phosphorus Magnesium Ferritin Lactate Dehydrogenase C-Reactive Protein NT-Pro-B Natriuret Pep Total Protein Albumin Triglycerides Arterial Blood Glucose Urine pH Ur Specific [place] Coronavirus (PCR) 04/24/21 04/24/21 04/24/21 04:00 05:15 11:45 WBC RBC Hgb Hct MCV MCHC RDW Plt Count Lymph % (Auto) [place] % (Auto) Lymph # (Auto) [place] # (Auto) Seg Neutrophils % Seg Neuts % (Manual) Lymphocytes % (Manual) Monocytes % (Manual) Nucleated RBC % Seg Neutrophils # Seg Neutrophils # Man Lymphocytes # (Manual) Monocytes # (Manual) PT INR APTT D-Dimer Heparin Anti-Xa Level ABG pH POC ABG pCO2 POC ABG pO2 ABG pO2 ABG HCO3 ABG O2 Saturation ABG Base Excess ABG Hemoglobin ABG Oxyhemoglobin ABG Sodium ABG Potassium ABG Glucose Oxyhemoglobin Carboxyhemoglobin Sodium Potassium Chloride Carbon Dioxide BUN Creatinine 0.4 L Glucose 136 H POC Glucose 135 H 140 H Lactic Acid Calcium Phosphorus Magnesium Ferritin Lactate Dehydrogenase C-Reactive Protein NT-Pro-B Natriuret Pep Total Protein Albumin Triglycerides Arterial Blood Glucose Urine pH Ur Specific [place] Coronavirus (PCR) 04/24/21 04/24/21 04/24/21 16:06 18:26 23:48 WBC RBC Hgb Hct MCV MCHC RDW Plt Count Lymph % (Auto) [place] % (Auto) Lymph # (Auto) [place] # (Auto) Seg Neutrophils % Seg Neuts % (Manual) Lymphocytes % (Manual) Monocytes % (Manual) Nucleated RBC % Seg Neutrophils # Seg Neutrophils # Man Lymphocytes # (Manual) Monocytes # (Manual) PT INR APTT D-Dimer Heparin Anti-Xa Level ABG pH POC ABG pCO2 POC ABG pO2 ABG pO2 ABG HCO3 ABG O2 Saturation ABG Base Excess ABG Hemoglobin ABG Oxyhemoglobin ABG Sodium ABG Potassium ABG Glucose Oxyhemoglobin Carboxyhemoglobin Sodium Potassium Chloride Carbon Dioxide BUN Creatinine Glucose POC Glucose 141 H 141 H 129 H Lactic Acid Calcium Phosphorus Magnesium Ferritin Lactate Dehydrogenase C-Reactive Protein NT-Pro-B Natriuret Pep Total Protein Albumin Triglycerides Arterial Blood Glucose Urine pH Ur Specific [place] Coronavirus (PCR) 04/25/21 04/25/21 04/25/21 05:27 11:27 15:04 WBC RBC Hgb Hct MCV MCHC RDW Plt Count Lymph % (Auto) [place] % (Auto) Lymph # (Auto) [place] # (Auto) Seg Neutrophils % Seg Neuts % (Manual) Lymphocytes % (Manual) Monocytes % (Manual) Nucleated RBC % Seg Neutrophils # Seg Neutrophils # Man Lymphocytes # (Manual) Monocytes # (Manual) PT INR APTT D-Dimer Heparin Anti-Xa Level ABG pH POC ABG pCO2 POC ABG pO2 ABG pO2 ABG HCO3 ABG O2 Saturation ABG Base Excess ABG Hemoglobin ABG Oxyhemoglobin ABG Sodium ABG Potassium ABG Glucose Oxyhemoglobin Carboxyhemoglobin Sodium 135 L Potassium Chloride Carbon Dioxide BUN Creatinine 0.4 L Glucose 142 H POC Glucose 142 H 151 H Lactic Acid Calcium Phosphorus Magnesium Ferritin Lactate Dehydrogenase C-Reactive Protein NT-Pro-B Natriuret Pep Total Protein Albumin Triglycerides Arterial Blood Glucose Urine pH Ur Specific [place] Coronavirus (PCR) 04/25/21 04/26/21 04/26/21 23:34 05:36 07:51 WBC RBC Hgb Hct MCV MCHC RDW Plt Count Lymph % (Auto) [place] % (Auto) Lymph # (Auto) [place] # (Auto) Seg Neutrophils % Seg Neuts % (Manual) Lymphocytes % (Manual) Monocytes % (Manual) Nucleated RBC % Seg Neutrophils # Seg Neutrophils # Man Lymphocytes # (Manual) Monocytes # (Manual) PT INR APTT D-Dimer Heparin Anti-Xa Level ABG pH POC ABG pCO2 POC ABG pO2 ABG pO2 ABG HCO3 ABG O2 Saturation ABG Base Excess ABG Hemoglobin ABG Oxyhemoglobin ABG Sodium ABG Potassium ABG Glucose Oxyhemoglobin Carboxyhemoglobin Sodium Potassium Chloride Carbon Dioxide BUN Creatinine Glucose POC Glucose 127 H 135 H 129 H Lactic Acid Calcium Phosphorus Magnesium Ferritin Lactate Dehydrogenase C-Reactive Protein NT-Pro-B Natriuret Pep Total Protein Albumin Triglycerides Arterial Blood Glucose Urine pH Ur Specific [place] Coronavirus (PCR) 04/26/21 04/26/21 04/26/21 11:24 18:14 21:07 WBC RBC Hgb Hct MCV MCHC RDW Plt Count Lymph % (Auto) [place] % (Auto) Lymph # (Auto) [place] # (Auto) Seg Neutrophils % Seg Neuts % (Manual) Lymphocytes % (Manual) Monocytes % (Manual) Nucleated RBC % Seg Neutrophils # Seg Neutrophils # Man Lymphocytes # (Manual) Monocytes # (Manual) PT INR APTT D-Dimer Heparin Anti-Xa Level ABG pH POC ABG pCO2 POC ABG pO2 ABG pO2 ABG HCO3 ABG O2 Saturation ABG Base Excess ABG Hemoglobin ABG Oxyhemoglobin ABG Sodium ABG Potassium ABG Glucose Oxyhemoglobin Carboxyhemoglobin Sodium Potassium Chloride Carbon Dioxide BUN Creatinine Glucose POC Glucose 129 H 109 H 122 H Lactic Acid Calcium Phosphorus Magnesium Ferritin Lactate Dehydrogenase C-Reactive Protein NT-Pro-B Natriuret Pep Total Protein Albumin Triglycerides Arterial Blood Glucose Urine pH Ur Specific [place] Coronavirus (PCR) 04/27/21 04/27/21 04/27/21 06:13 11:03 16:32 WBC RBC Hgb Hct MCV MCHC RDW Plt Count Lymph % (Auto) [place] % (Auto) Lymph # (Auto) [place] # (Auto) Seg Neutrophils % Seg Neuts % (Manual) Lymphocytes % (Manual) Monocytes % (Manual) Nucleated RBC % Seg Neutrophils # Seg Neutrophils # Man Lymphocytes # (Manual) Monocytes # (Manual) PT INR APTT D-Dimer Heparin Anti-Xa Level ABG pH POC ABG pCO2 POC ABG pO2 ABG pO2 ABG HCO3 ABG O2 Saturation ABG Base Excess ABG Hemoglobin ABG Oxyhemoglobin ABG Sodium ABG Potassium ABG Glucose Oxyhemoglobin Carboxyhemoglobin Sodium Potassium Chloride Carbon Dioxide BUN Creatinine Glucose POC Glucose 112 H 134 H 136 H Lactic Acid Calcium Phosphorus Magnesium Ferritin Lactate Dehydrogenase C-Reactive Protein NT-Pro-B Natriuret Pep Total Protein Albumin Triglycerides Arterial Blood Glucose Urine pH Ur Specific [place] Coronavirus (PCR) 04/28/21 04/28/21 04/28/21 00:05 05:31 11:20 WBC RBC Hgb Hct MCV MCHC RDW Plt Count Lymph % (Auto) [place] % (Auto) Lymph # (Auto) [place] # (Auto) Seg Neutrophils % Seg Neuts % (Manual) Lymphocytes % (Manual) Monocytes % (Manual) Nucleated RBC % Seg Neutrophils # Seg Neutrophils # Man Lymphocytes # (Manual) Monocytes # (Manual) PT INR APTT D-Dimer Heparin Anti-Xa Level ABG pH POC ABG pCO2 POC ABG pO2 ABG pO2 ABG HCO3 ABG O2 Saturation ABG Base Excess ABG Hemoglobin ABG Oxyhemoglobin ABG Sodium ABG Potassium ABG Glucose Oxyhemoglobin Carboxyhemoglobin Sodium Potassium Chloride Carbon Dioxide BUN Creatinine Glucose POC Glucose 113 H 116 H 116 H Lactic Acid Calcium Phosphorus Magnesium Ferritin Lactate Dehydrogenase C-Reactive Protein NT-Pro-B Natriuret Pep Total Protein Albumin Triglycerides Arterial Blood Glucose Urine pH Ur Specific [place] Coronavirus (PCR) 04/28/21 04/29/21 04/29/21 23:36 05:03 05:03 WBC RBC 3.15 L Hgb 9.8 L Hct 29.1 L MCV MCHC RDW 17.6 H Plt Count Lymph % (Auto) [place] % (Auto) Lymph # (Auto) [place] # (Auto) Seg Neutrophils % Seg Neuts % (Manual) Lymphocytes % (Manual) Monocytes % (Manual) Nucleated RBC % Seg Neutrophils # Seg Neutrophils # Man Lymphocytes # (Manual) Monocytes # (Manual) PT INR APTT D-Dimer Heparin Anti-Xa Level ABG pH POC ABG pCO2 POC ABG pO2 ABG pO2 ABG HCO3 ABG O2 Saturation ABG Base Excess ABG Hemoglobin ABG Oxyhemoglobin ABG Sodium ABG Potassium ABG Glucose Oxyhemoglobin Carboxyhemoglobin Sodium 136 L Potassium Chloride Carbon Dioxide BUN 8 L Creatinine 0.3 L Glucose 115 H POC Glucose 120 H Lactic Acid Calcium Phosphorus Magnesium Ferritin Lactate Dehydrogenase C-Reactive Protein NT-Pro-B Natriuret Pep Total Protein Albumin Triglycerides Arterial Blood Glucose Urine pH Ur Specific [place] Coronavirus (PCR) 04/29/21 04/29/21 04/29/21 05:23 12:42 18:23 WBC RBC Hgb Hct MCV MCHC RDW Plt Count Lymph % (Auto) [place] % (Auto) Lymph # (Auto) [place] # (Auto) Seg Neutrophils % Seg Neuts % (Manual) Lymphocytes % (Manual) Monocytes % (Manual) Nucleated RBC % Seg Neutrophils # Seg Neutrophils # Man Lymphocytes # (Manual) Monocytes # (Manual) PT INR APTT D-Dimer Heparin Anti-Xa Level ABG pH POC ABG pCO2 POC ABG pO2 ABG pO2 ABG HCO3 ABG O2 Saturation ABG Base Excess ABG Hemoglobin ABG Oxyhemoglobin ABG Sodium ABG Potassium ABG Glucose Oxyhemoglobin Carboxyhemoglobin Sodium Potassium Chloride Carbon Dioxide BUN Creatinine Glucose POC Glucose 112 H 129 H 110 H Lactic Acid Calcium Phosphorus Magnesium Ferritin Lactate Dehydrogenase C-Reactive Protein NT-Pro-B Natriuret Pep Total Protein Albumin Triglycerides Arterial Blood Glucose Urine pH Ur Specific [place] Coronavirus (PCR) 04/29/21 04/30/21 04/30/21 22:14 06:12 11:34 WBC RBC Hgb Hct MCV MCHC RDW Plt Count Lymph % (Auto) [place] % (Auto) Lymph # (Auto) [place] # (Auto) Seg Neutrophils % Seg Neuts % (Manual) Lymphocytes % (Manual) Monocytes % (Manual) Nucleated RBC % Seg Neutrophils # Seg Neutrophils # Man Lymphocytes # (Manual) Monocytes # (Manual) PT INR APTT D-Dimer Heparin Anti-Xa Level ABG pH POC ABG pCO2 POC ABG pO2 ABG pO2 ABG HCO3 ABG O2 Saturation ABG Base Excess ABG Hemoglobin ABG Oxyhemoglobin ABG Sodium ABG Potassium ABG Glucose Oxyhemoglobin Carboxyhemoglobin Sodium Potassium Chloride Carbon Dioxide BUN Creatinine Glucose POC Glucose 113 H 117 H 129 H Lactic Acid Calcium Phosphorus Magnesium Ferritin Lactate Dehydrogenase C-Reactive Protein NT-Pro-B Natriuret Pep Total Protein Albumin Triglycerides Arterial Blood Glucose Urine pH Ur Specific [place] Coronavirus (PCR) 04/30/21 04/30/21 04/30/21 16:22 17:50 21:30 WBC RBC Hgb Hct MCV MCHC RDW Plt Count Lymph % (Auto) [place] % (Auto) Lymph # (Auto) [place] # (Auto) Seg Neutrophils % Seg Neuts % (Manual) Lymphocytes % (Manual) Monocytes % (Manual) Nucleated RBC % Seg Neutrophils # Seg Neutrophils # Man Lymphocytes # (Manual) Monocytes # (Manual) PT INR APTT D-Dimer Heparin Anti-Xa Level ABG pH 7.477 H POC ABG pCO2 POC ABG pO2 ABG pO2 ABG HCO3 28.7 H ABG O2 Saturation ABG Base Excess 4.9 H ABG Hemoglobin 11.5 L ABG Oxyhemoglobin ABG Sodium ABG Potassium ABG Glucose Oxyhemoglobin 94.8 L Carboxyhemoglobin Sodium Potassium Chloride Carbon Dioxide BUN Creatinine Glucose POC Glucose 136 H 114 H Lactic Acid Calcium Phosphorus Magnesium Ferritin Lactate Dehydrogenase C-Reactive Protein NT-Pro-B Natriuret Pep Total Protein Albumin Triglycerides Arterial Blood Glucose Urine pH Ur Specific [place] Coronavirus (PCR) 05/01/21 05/01/21 05/01/21 00:11 05:27 13:54 WBC RBC Hgb Hct MCV MCHC RDW Plt Count Lymph % (Auto) [place] % (Auto) Lymph # (Auto) [place] # (Auto) Seg Neutrophils % Seg Neuts % (Manual) Lymphocytes % (Manual) Monocytes % (Manual) Nucleated RBC % Seg Neutrophils # Seg Neutrophils # Man Lymphocytes # (Manual) Monocytes # (Manual) PT INR APTT D-Dimer Heparin Anti-Xa Level ABG pH POC ABG pCO2 POC ABG pO2 ABG pO2 ABG HCO3 ABG O2 Saturation ABG Base Excess ABG Hemoglobin ABG Oxyhemoglobin ABG Sodium ABG Potassium ABG Glucose Oxyhemoglobin Carboxyhemoglobin Sodium Potassium Chloride Carbon Dioxide BUN Creatinine Glucose POC Glucose 130 H 111 H 122 H Lactic Acid Calcium Phosphorus Magnesium Ferritin Lactate Dehydrogenase C-Reactive Protein NT-Pro-B Natriuret Pep Total Protein Albumin Triglycerides Arterial Blood Glucose Urine pH Ur Specific [place] Coronavirus (PCR) 05/01/21 05/01/21 05/01/21 17:36 21:38 23:43 WBC RBC Hgb Hct MCV MCHC RDW Plt Count Lymph % (Auto) [place] % (Auto) Lymph # (Auto) [place] # (Auto) Seg Neutrophils % Seg Neuts % (Manual) Lymphocytes % (Manual) Monocytes % (Manual) Nucleated RBC % Seg Neutrophils # Seg Neutrophils # Man Lymphocytes # (Manual) Monocytes # (Manual) PT INR APTT D-Dimer Heparin Anti-Xa Level ABG pH POC ABG pCO2 POC ABG pO2 ABG pO2 ABG HCO3 ABG O2 Saturation ABG Base Excess ABG Hemoglobin ABG Oxyhemoglobin ABG Sodium ABG Potassium ABG Glucose Oxyhemoglobin Carboxyhemoglobin Sodium Potassium Chloride Carbon Dioxide BUN Creatinine Glucose POC Glucose 131 H 110 H 118 H Lactic Acid Calcium Phosphorus Magnesium Ferritin Lactate Dehydrogenase C-Reactive Protein NT-Pro-B Natriuret Pep Total Protein Albumin Triglycerides Arterial Blood Glucose Urine pH Ur Specific [place] Coronavirus (PCR) 05/02/21 05/02/21 05/02/21 05:02 06:36 08:50 WBC RBC 3.51 L Hgb 10.8 L Hct 32.8 L MCV MCHC RDW 18.5 H Plt Count Lymph % (Auto) [place] % (Auto) Lymph # (Auto) [place] # (Auto) Seg Neutrophils % Seg Neuts % (Manual) Lymphocytes % (Manual) Monocytes % (Manual) Nucleated RBC % Seg Neutrophils # Seg Neutrophils # Man Lymphocytes # (Manual) Monocytes # (Manual) PT INR APTT D-Dimer Heparin Anti-Xa Level ABG pH POC ABG pCO2 POC ABG pO2 ABG pO2 ABG HCO3 ABG O2 Saturation ABG Base Excess ABG Hemoglobin ABG Oxyhemoglobin ABG Sodium ABG Potassium ABG Glucose Oxyhemoglobin Carboxyhemoglobin Sodium 136 L Potassium Chloride Carbon Dioxide BUN Creatinine 0.3 L Glucose 121 H POC Glucose 111 H Lactic Acid Calcium Phosphorus Magnesium Ferritin Lactate Dehydrogenase C-Reactive Protein NT-Pro-B Natriuret Pep Total Protein Albumin Triglycerides Arterial Blood Glucose Urine pH Ur Specific [place] Coronavirus (PCR) Allied health notes reviewed: nursing
[2021-05-02] MEDS: GLYCOPYRROLATE 2 MG TAB PO SCH ×2 (09:49→13:03)
[2021-05-02] MEDS: APIXABAN 5 MG TAB FEEDTUBE SCH (09:50)
[2021-05-02] MEDS: FAMOTIDINE 20 MG TAB FEEDTUBE SCH (09:50)
[2021-05-02] MEDS: DOXAZOSIN 1 MG TAB FEEDTUBE SCH (09:50)
[2021-05-02] MEDS: DOCUSATE SODIUM 100 MG/10 ML ORAL LIQD FEEDTUBE SCH (09:50)
[2021-05-02] MEDS: METOPROLOL TARTRATE 25 MG TAB FEEDTUBE SCH (09:51)
[2021-05-02] MEDS: amLODIPine 10 MG TAB FEEDTUBE SCH (09:51)
[2021-05-02 13:04] VITALS: BP 130/78
--- NOTE | 2021-05-02 13:17 | Event Note ---
Assessment and plan: This is a 61-year-old male with past medical history of HTN and DM admitted for sepsis and acute hypoxic respiratory failure 2/2 COVID pneumonia s/p Trach and PEG on 2/2 Hospital Course to Date: 03/09: The patient was seen and evaluated today, and he was found to be hemodynamically stable. The patient is currently on BiPAP for possible COVID-19 pneumonia. He was started on Lovenox 1mg/kg for DVT ppx in the setting of d- dimer > 10,000. Infectious Disease was consulted. The patient is pending a TTE. 03/10: No acute events overnight, patient was intubated in the afternoon transferred to ICU 03/11: Patient started on Lantus, free water flushes increased, propofol drip resumed and oral antihypertensive added. 03/12: lantus increased, k at 5, will monitor. I updated his family and his stated that he is not vaccinated. He does have HTN and she will call the RN to update home medications. She did say he takes bystolic and amlopine. She inquired about ventilator and lab work. She had no further questions. 03/13: KVNG overnight. Patient remains hyperglycemic, basal insulin adjusted and increased to Q12hrs. Patient is overall net positive since admit X1 dose of IV lasix, repeat BMP this afternoon. 03/14: Failed SAT this am due to increase agitation, tachycardia and hypertension. Remains on propofol and fentanyl gtt. Hyperkalemia treated with PO kayaxalate. Patient responded to IV lasix yesterday additional dose again today for a net negative balance. Repeat BMP this afternoon. Insulin adjusted for hyperglycemia. 03/15: Remains encephalopathic, not following commansd. Orders placed for CT head/Brain and Neuro consulted. Rectal bleeding subsided, most likely due to hemorrhoids. H&H is stable will continue to monitor. Kayaxexalate for high K, repeat labs 4 to 6hrs post treatment. 03/16: Still agiated this am, CT head with no acute Abn. CXR and ABG noted- evolving pna and worsening hypoxia, now with low grade fevers. Sputum culture ordered, IV Abx added, ID on cosult. 03/17: This am ABG noted, hypoxia improved. Continue to wean FiO2 as tolerated. Still with low grade fevers, on IV Abx per ID. Still with periods of confusion despite sedation, seroquel increased. F/u CXR in the am 03/18: still very agitated especially when off sedation, with hypertension and tachycardia. Continue sedation for RASS -2, PRN antihypertensive for SPB greater than 160. This febrile this am, continue current IV abx per ID 03/19: Patient afebrile overnight, continue IV Abx per ID. ABG also improved this am, continue to wean FIO2 as tolerated. PRN antihypertensive for hypertension. 03/20: Hyperkalemia treated with Kayexalate, Good discontinued, vancomycin and cefepime stopped started Bactrim by ID. Steroid taper started. 03/21: BB started for hypertension, Seroquel increased for agitation and Librium started no acute events reported overnight. [facility] made vent changes 03/22: Adjustment to anxiolytics, respiratory rate on ventilator per [facility]. Patient noted to have bleeding hemorrhoids with clot, requested RN to remove bowel management system and will order Preparation H. 03/23: Given no confirmed DVT or PE (only superficial thrombus noted on Dopplers) therapeutic Lovenox changed to prophylactic Lovenox. Started on doxazosin to help with retention. Consulted surgery for tracheostomy and propofol discontinued. 03/24: Surgery consult completed, patient changed to prophylaxis anticoagulation, started on doxazosin yesterday with plans to remove Good catheter in 48 hours. Patient with slight hypokalemia today and given Kayexalate. No acute events reported overnight. 03/25: No acute events reported overnight. Patient remains on fentanyl drip and on CPAP trial this morning. 03/26: no acute events reported overnight. placed on CPAP this AM, remains on fent/librium. scheduled for trach/peg this week. 03/27: Hypoglycemic this am, will decreased lantus to Qhs. Plan for possible Trach and Peg by Gen Surg this am. Case management to arrange possible LTAC placement 03/28: KVNG overnight. Tolerating PST this am. Plan for trach and PEG tomorrow by Gen. Surgery, NPO after midnight. 03/29: No significant changes overnight. Plan for trach and Peg today. Case management to arrange possible LTAC placement 03/30. S/p Trach and PEG, no complications noted. High residual yesterday despite NPO status, reglan added X2 days. Per RN no residual this am, patient is tolerating TF. Continue to advance TF as tolerated. Norvasc added for hypertension. Pitting edema also appreciated, some diuretic might be beneficial, will d/w CCM. Continue daily PST as tolerated. 03/31: Patient remains on the vent still on fentanyl gtt with periods of agitation. PRN analgesia added, plan to start weaning off fentanyl gtt. Febrile this am, completed IV abx course. Will panculture for now, ID is also following. 04/01: Still febrile overnight, cultures result pending, continue IV ABx per ID. Failed PST this am. Continue daily PST and vent wean per [facility]. Case management to arrange possible placement. 04/02: KVNG overnight. Fevers improved overnight, continue to follow cultures data, IV ABx per ID. Continue daily PST and wean vent as per [facility].\ 04/03: Given low procalcitonin, unchanged CXR and cultures with no growth cefepime was discontinued by ID. LTAC evaluation ongoing. No acute events reported ove ctaieight. 04/04: IV Lasix stopped today, Seroquel taper started, fentanyl drip on hold and steroids stopped. Pressure support trial again today. 04/05: Patient had to be restarted on fentanyl drip therefore Seroquel was increased back to 250 twice daily and he was started on scheduled narcotics and efforts to wean fentanyl drip. Doxazosin was increased to twice daily as patient still had retention issues on doxazosin once a day. Patient was denied LTAC placement. CPAP trial today. 04/06: Right upper extremity ultrasound obtained due to edema which showed DVT. Patient started on heparin drip. Overnight patient had hypoxia, tachypnea, tachycardia, hypotension and FiO2 was increased to 100%. RT titrating as tolerated. Plan was to start T-piece trials today. Patient has been denied LTAC placement. 04/07: BLE dopplar, continue lasix per [facility], CXR in AM. Increase in fio2 overnight d/t desaturation. Wean FiO2 as tolerated. 04/08: Patient remains on 65% FiO2, s/p Lasix for 3 doses, hyperkalemia noted today and medically treated. [facility] plans to consult heme/onc once FiO2 decreased. Remains on heparin gtt 04/09: No acute events reported overnight, possible heme-onc consult on Saturday or Saturday regarding upper extremity DVT, wean FiO2 as tolerated. Repeat CT head on Monday 04/10: Patient mentation is unchanged, repeat CT head today. Remains on heparin gtt per protocol. Continue daily PST as tolerated. 04/11: Increased work of breathing and high RR overnight, vent FiO2 increased to 55%. Resolved this am, patient is tolerating PST, no acute distress noted. Wean Fio2 as tolerated for SPO2 above 92%, Follow up CXR and ABG in the am. Antihypertensive regimen adjusted for better BP control. 04/12: Patient with coarse lungs and increased secretion today. This am CXR noted with worsen infiltrate, 40 of Lasix given, repeat CXR in the am. Patient remains afebrile, complete IV Abx course, VSS. Transitioned to PO Eliquis overnight, continue to keep patient net negative for better lung compliance. Continue daily PST as tolerated. 04/13: Patient is off sedation this am. Remains unresponsive. Librium D/C and Seroquel was adjusted to Qhs, PRN analgesia for pain management. Patient re sponded well to IV lasix, this am CXR with some improvement, additional IV lasix ordered again today. high CO2 also noted from this am, ABG ordered. Patient is tolerating PST this am, SPO2 remains above 95%. Continue daily PST plan to get patient off the vent for possible SNF placemement 04/14: Patient mentation is unchanged despite reducing sedative agents. Will hold all scheduled sedatives agents for now, PRN analgesics for pain management and vent synchrony. Patient spike a temp this am, orders placed for cultures, IV abx per ID. Additional lasix today, F/u CXR in the am. Patient is tolerating PST this am. 04/15: Remains febrile overnight. Culture data pending, back on IV Abx per ID. Gentle fluid management with IV lasix. Keep patient at a net negative balance. Continue daily PST as tolerated. 04/16: Open eyes spontaneously this am, but still not following commands. MRI brain ordered. Continue to avoid any sedative agents. Patient continue to respond very well to IV diuretic, continue gentle diurese X3days as tolerated. Continue daily PST as tolerated. Plan is get patient off the vent for possible SNF placement. Patient remains febrile this am, now cefepine and Vanc, continue IV abx per ID. 04/17: We will repeat procalcitonin per ID, MRI brain pending, SNF placement pending, [facility] plans to start T-piece trials in the morning and will discontinue Good catheter again. 04/18: Overnight patient to be straight cath x2 but did eventually have spontaneous urine output today and Good catheter was not replaced, patient had MRI brain today and was started on T-piece trials. He received Versed for sedation for MRI brain. 04/19: Good catheter was not replaced overnight patient is still voiding, placed on T-piece today, scopolamine and Robinul restarted. 04/20: Patient T-piece trial again today, will decrease bowel regimen in a.m. for entering T-piece for 24 hours obtain gas in the a.m. Cefazolin increased 04/21: Patient remained on trach collar throughout the day, will be transitioned to IMCU. Good catheter was replaced overnight due to retention. 04/22: Patient continues to tolerate Trach collar, still with volume overload will continue with diuresis, monitor electrolytes, aggressive pulmonary toliet, aspiration precautions 04/23: Patient remains on trach collar which he is tolerating. Remains on cefazolin, Cardura and Lasix. 04/24: KVNG overnight. Patient is AAO, following commands, and tolerating T-piece. Continue PT 5X/week. Pending SNF vs Subacute rehab placement, case management to arrange. 04/25: KVNG overnight. Remains stable, tolerating T-piece. Plan for possible PSMV trial with speech once available. 04/26: Patient remains stable on T-piece. Awaiting possible SNF placement, case management to arrange. 04/27: Patient remains clinically stable continues on T-piece awaiting SNF placement. Mild leukocytosis but otherwise improving no fever noted at this time. Continue diuresis as there is improvement noted. He is able to vocalize words. Will defer to pulmonary about capping trials. 04/28: Continues to show some improvement. We will continue current management and diuresis as needed. Continue capping trial. Will check labs in a.m. Plan of care discussed with the patient and case management 04/29: Patient seen and examined resting comfortably labs are intact still anemic but stable. Continue current management we will run a trial of diuresis x3. 04/30: Continue supportive care. Wean as tolerated. PMV valve has been ordered for his trach size. 05/01: I obtained x-ray to further evaluate left knee shows DJD. We'll add some Ultram for pain control. Otherwise continue current management. Case management awaiting [facility]. Assessment and Plan #Acute Hypoxic Respiratory Failure #COVID Pneumonia - Intubated on 03/10 due to worsen hypoxia on BIPAP - 03/29 s/p Tracheostomy - T-piece- 28% and 5L - Pulmonary on consult - Continue Nebs per CCM - Pulmonary hygiene - keep patient net negative for better lung compliance - Aspiration precaution HOB above 30 - Continue SPO2 monitoring for SPO2 goal above 92% #Sepsis #COVID Pneumonia #MSSA pneumonia -Infectious disease consulted, appreciate recommendations -S/p remdesivir for 5 days -S/p Actemra 03/10/2021 -f/u blood culture -Monitor WBC and temperature curve -s/p steroids -04/18 procal 0.19 -03/16 Fungitell and histoplasma negative -On high dose Cefazolin per ID #Acute Encephalopathy-improved - AAO, following commands - CT head/brain no acute Abn. - Repeat CT head and MRI brain noted - Avoid benzodiazepine to reduce the possibility of delirium - Prn analgesia for pain management - Maintenance of sleep-wake cycle - PT consulted, appreciate recommendations: PT recommends subacute rehab if patient does not qualify for LTAC #Hypertension - 03/09 Echocardiogram shows a mildly dilated ascending aorta, normal LV systolic function, mild concentric LVH, LVEF 60 to 65% - Continue current antihypertensive regimen - PRN Labetalol for SBP above 160 - Continue Blood pressure monitoring per protocol #Urinary retention - Good catheter removed 04/17 and replaced 04/21 - Continue Doxazosin BID - Strict intake and output - Avoid nephrotoxic medications; Renally dose medications - Monitor and replace electrolytes as needed - Trend BMP #Acute right upper extremity DVT - Bilateral lower extremity ultrasounds negative for DVT, superficial thrombus in left gastrocnemius vein - CTA chest shows no gross pulm embolism - bilateral upper extremity ultrasound shows DVT in right upper extremity - Continue PO Eliquis - SCDs to BLE while in bed - Transfuse hemoglobin less than 7 - Monitor for signs of bleeding #Anemia -Stable, continue supportive care #Endo:Type 2 DM - Continue high dose SSI Q6hrs - Lantus qHs - Avoid Hypoglycemia
--- NOTE | 2021-05-02 13:18 | Progress Note ---
Assessment and Plan Cultures: SARS CoV2 PCR: positive 03/08/2021 blood culture: no growth 03/10/2021 sputum culture: Usual respiratory marlyn 03/16/2021 blood culture: no growth 03/18/2021 sputum culture: Stenotrophomonas 03/31/2021 Blood culture: no growth 03/31/2021 tracheal aspirate: usual resp marlyn 04/14/2021 sputum culture: MSSA 04/14/2021 blood culture: No growth 04/14/2021 urine culture: No growth 04/15/2021 right middle lobe respiratory culture: MSSA A/P: 61-year-old male with diabetes, hypertension admitted to the hospital with complaints of shortness of breath and feeling weak for the last 1 week: #Sepsis secondary to bilateral pneumonia: secondary to COVID-19. Completed remdesivir, s/p Actemra, steroids. Completed abx for bacterial pneumonia, Stenotrophomonas. #MSSA pneumonia #Acute hypoxic respiratory failure: s/p trach and PEG. #DM #HTN #Acute DVT in RUE Recs: -continue higher dose cefazolin 3 g q8 hrs, may need a long course of abx (MSSA can cause severe pneumonia including necrotizing pneumonia). PLanned 14 days -monitor fever and WBC G. Joslyn Goins MD [facility] O: [phone] F: [phone] Subjective Date of service: 05/02/21 Principal diagnosis: COVID-19 infection; DM II; Bilateral pneumonia; Obesity; HTN Interval history: Afebrile, normal white count. Objective - Exam Narrative Exam: Physical exam deferred to reduce risk of transmission of COVID-19. Please refer to primary team's note. - Constitutional Vitals: Vital Signs Temp Pulse Resp BP Pulse Ox 98.8 F 84 24 130/78 96 05/02/21 04:00 05/02/21 13:03 05/02/21 12:00 05/02/21 13:03 05/02/21 12:00 Temperature -Last 24 Hours Temperature 98.8 F Temperature 98.9 F Temperature 97.9 F Temperature 97.7 F - Labs CBC & Chem 7: 05/02/21 08:50 05/02/21 06:36 Labs: Abnormal lab results 05/01/21 05/01/21 05/01/21 Range/Units 13:54 17:36 21:38 RBC (3.65-5.03) M/mm3 Hgb (11.8-15.2) gm/dl Hct (35.5-45.6) % RDW (13.2-15.2) % Sodium (137-145) mmol/L Creatinine (0.8-1.3) mg/dL Glucose (75-100) mg/dL POC Glucose 122 H 131 H 110 H (70-105) mg/dL 05/01/21 05/02/21 05/02/21 Range/Units 23:43 05:02 06:36 RBC (3.65-5.03) M/mm3 Hgb (11.8-15.2) gm/dl Hct (35.5-45.6) % RDW (13.2-15.2) % Sodium 136 L (137-145) mmol/L Creatinine 0.3 L (0.8-1.3) mg/dL Glucose 121 H (75-100) mg/dL POC Glucose 118 H 111 H (70-105) mg/dL 05/02/21 05/02/21 Range/Units 08:50 12:20 RBC 3.51 L (3.65-5.03) M/mm3 Hgb 10.8 L (11.8-15.2) gm/dl Hct 32.8 L (35.5-45.6) % RDW 18.5 H (13.2-15.2) % Sodium (137-145) mmol/L Creatinine (0.8-1.3) mg/dL Glucose (75-100) mg/dL POC Glucose 114 H (70-105) mg/dL
--- NOTE | 2021-05-02 13:29 | Discharge Summary ---
Providers - Providers Date of Admission: 03/09/21 01:26 Attending physician: RAFAEL DOMINGUEZ MD 03/09/21 01:26 Consult to Dietitian/Nutrition [CONS] Routine Physician Instructions: Reason For Exam: Reason for Consult: Write/Manage Tube Feeding Consult to Physician [CONS] Routine Comment: Consulting Provider: JENNA MCCALL Physician Instructions: Reason For Exam: covid Consult to Physician [CONS] Routine Comment: Consulting Provider: VEE ADAMS Physician Instructions: Reason For Exam: covid 03/15/21 16:59 Consult to Physician [CONS] Routine Comment: Consulting Provider: DAI CISSE Physician Instructions: Reason For Exam: Encephalopathy 03/23/21 14:13 Consult to Physician [CONS] Routine Comment: Consulting Provider: ABDI AGARWAL Physician Instructions: Reason For Exam: Tracheostomy placement 04/05/21 15:34 Midline [Consult to PICC Line RN] [CONS] Routine Reason For Exam: only has one PIV Type Line:: Midline 04/20/21 07:28 Physical Therapy Evaluation and Treat [CONS] Routine Comment: Reason For Exam: debility 04/24/21 12:29 Speech Therapy Eval for [place] Valve [CONS] Routine Reason For Exam: Trach downsize Primary care physician: [facility] Hospitalization Reason for admission: shortness of breath Condition: Stable Hospital course: Assessment and plan: This is a 61-year-old male with past medical history of HTN and DM admitted for sepsis and acute hypoxic respiratory failure 2/2 COVID pneumonia s/p Trach and PEG on 2/ Hospital Course to Date: 03/09: The patient was seen and evaluated today, and he was found to be hemodynamically stable. The patient is currently on BiPAP for possible COVID-19 pneumonia. He was started on Lovenox 1mg/kg for DVT ppx in the setting of d- dimer > 10,000. Infectious Disease was consulted. The patient is pending a TTE. 03/10: No acute events overnight, patient was intubated in the afternoon transferred to ICU 03/11: Patient started on Lantus, free water flushes increased, propofol drip resumed and oral antihypertensive added. 03/12: lantus increased, k at 5, will monitor. I updated his family and his stated that he is not vaccinated. He does have HTN and she will call the RN to update home medications. She did say he takes bystolic and amlopine. She inquired about ventilator and lab work. She had no further questions. 03/13: KVNG overnight. Patient remains hyperglycemic, basal insulin adjusted and increased to Q12hrs. Patient is overall net positive since admit X1 dose of IV lasix, repeat BMP this afternoon. 03/14: Failed SAT this am due to increase agitation, tachycardia and hypertension. Remains on propofol and fentanyl gtt. Hyperkalemia treated with PO kayaxalate. Patient responded to IV lasix yesterday additional dose again today for a net negative balance. Repeat BMP this afternoon. Insulin adjusted for hyperglycemia. 03/15: Remains encephalopathic, not following commansd. Orders placed for CT head/Brain and Neuro consulted. Rectal bleeding subsided, most likely due to hemorrhoids. H&H is stable will continue to monitor. Kayaxexalate for high K, repeat labs 4 to 6hrs post treatment. 03/16: Still agiated this am, CT head with no acute Abn. CXR and ABG noted- evolving pna and worsening hypoxia, now with low grade fevers. Sputum culture ordered, IV Abx added, ID on cosult. 03/17: This am ABG noted, hypoxia improved. Continue to wean FiO2 as tolerated. Still with low grade fevers, on IV Abx per ID. Still with periods of confusion despite sedation, seroquel increased. F/u CXR in the am 03/18: still very agitated especially when off sedation, with hypertension and tachycardia. Continue sedation for RASS -2, PRN antihypertensive for SPB greater than 160. This febrile this am, continue current IV abx per ID 03/19: Patient afebrile overnight, continue IV Abx per ID. ABG also improved this am, continue to wean FIO2 as tolerated. PRN antihypertensive for hypertension. 03/20: Hyperkalemia treated with Kayexalate, Good discontinued, vancomycin and cefepime stopped started Bactrim by ID. Steroid taper started. 03/21: BB started for hypertension, Seroquel increased for agitation and Librium started no acute events reported overnight. [facility] made vent changes 03/22: Adjustment to anxiolytics, respiratory rate on ventilator per [facility]. Patient noted to have bleeding hemorrhoids with clot, requested RN to remove bowel management system and will order Preparation H. 03/23: Given no confirmed DVT or PE (only superficial thrombus noted on Dopplers) therapeutic Lovenox changed to prophylactic Lovenox. Started on doxazosin to help with retention. Consulted surgery for tracheostomy and propofol discontinued. 03/24: Surgery consult completed, patient changed to prophylaxis anticoagulation, started on doxazosin yesterday with plans to remove Good catheter in 48 hours. Patient with slight hypokalemia today and given Kayexalate. No acute events reported overnight. 03/25: No acute events reported overnight. Patient remains on fentanyl drip and on CPAP trial this morning. 03/26: no acute events reported overnight. placed on CPAP this AM, remains on fent/librium. scheduled for trach/peg this week. 03/27: Hypoglycemic this am, will decreased lantus to Qhs. Plan for possible Trach and Peg by Gen Surg this am. Case management to arrange possible LTAC placement 03/28: KVNG overnight. Tolerating PST this am. Plan for trach and PEG tomorrow by Gen. Surgery, NPO after midnight. 03/29: No significant changes overnight. Plan for trach and Peg today. Case management to arrange possible LTAC placement 03/30. S/p Trach and PEG, no complications noted. High residual yesterday despite NPO status, reglan added X2 days. Per RN no residual this am, patient is tolerating TF. Continue to advance TF as tolerated. Norvasc added for hypertension. Pitting edema also appreciated, some diuretic might be beneficial, will d/w CCM. Continue daily PST as tolerated. 03/31: Patient remains on the vent still on fentanyl gtt with periods of agitation. PRN analgesia added, plan to start weaning off fentanyl gtt. Febrile this am, completed IV abx course. Will panculture for now, ID is also following. 04/01: Still febrile overnight, cultures result pending, continue IV ABx per ID. Failed PST this am. Continue daily PST and vent wean per CCM. Case management to arrange possible placement. 04/02: KVNG overnight. Fevers improved overnight, continue to follow cultures data, IV ABx per ID. Continue daily PST and wean vent as per CCM.\ 04/03: Given low procalcitonin, unchanged CXR and cultures with no growth cefepime was discontinued by ID. LTAC evaluation ongoing. No acute events reported overnight. 04/04: IV Lasix stopped today, Seroquel taper started, fentanyl drip on hold and steroids stopped. Pressure support trial again today. 04/05: Patient had to be restarted on fentanyl drip therefore Seroquel was increased back to 250 twice daily and he was started on scheduled narcotics and efforts to wean fentanyl drip. Doxazosin was increased to twice daily as patient still had retention issues on doxazosin once a day. Patient was denied LTAC placement. CPAP trial today. 04/06: Right upper extremity ultrasound obtained due to edema which showed DVT. Patient started on heparin drip. Overnight patient had hypoxia, tachypnea, tachycardia, hypotension and FiO2 was increased to 100%. RT titrating as tolerated. Plan was to start T-piece trials today. Patient has been denied LTAC placement. 04/07: BLE dopplar, continue lasix per [facility], CXR in AM. Increase in fio2 overnight d/t desaturation. Wean FiO2 as tolerated. 04/08: Patient remains on 65% FiO2, s/p Lasix for 3 doses, hyperkalemia noted today and medically treated. [facility] plans to consult heme/onc once FiO2 decreased. Remains on heparin gtt 04/09: No acute events reported overnight, possible heme-onc consult on Saturday or Saturday regarding upper extremity DVT, wean FiO2 as tolerated. Repeat CT head on Monday 04/10: Patient mentation is unchanged, repeat CT head today. Remains on heparin gtt per protocol. Continue daily PST as tolerated. 04/11: Increased work of breathing and high RR overnight, vent FiO2 increased to 55%. Resolved this am, patient is tolerating PST, no acute distress noted. Wean Fio2 as tolerated for SPO2 above 92%, Follow up CXR and ABG in the am. Antihypertensive regimen adjusted for better BP control. 04/12: Patient with coarse lungs and increased secretion today. This am CXR noted with worsen infiltrate, 40 of Lasix given, repeat CXR in the am. Patient remains afebrile, complete IV Abx course, VSS. Transitioned to PO Eliquis overnight, continue to keep patient net negative for better lung compliance. Continue daily PST as tolerated. 04/13: Patient is off sedation this am. Remains unresponsive. Librium D/C and Seroquel was adjusted to Qhs, PRN analgesia for pain management. Patient responded well to IV lasix, this am CXR with some improvement, additional IV lasix ordered again today. high CO2 also noted from this am, ABG ordered. Patient is tolerating PST this am, SPO2 remains above 95%. Continue daily PST plan to get patient off the vent for possible SNF placemement 04/14: Patient mentation is unchanged despite reducing sedative agents. Will hold all scheduled sedatives agents for now, PRN analgesics for pain management and vent synchrony. Patient spike a temp this am, orders placed for cultures, IV abx per ID. Additional lasix today, F/u CXR in the am. Patient is tolerating PST this am. 04/15: Remains febrile overnight. Culture data pending, back on IV Abx per ID. Gentle fluid management with IV lasix. Keep patient at a net negative balance. Continue daily PST as tolerated. 04/16: Open eyes spontaneously this am, but still not following commands. MRI brain ordered. Continue to avoid any sedative agents. Patient continue to respond very well to IV diuretic, continue gentle diurese X3days as tolerated. Continue daily PST as tolerated. Plan is get patient off the vent for possible SNF placement. Patient remains febrile this am, now cefepine and Vanc, continue IV abx per ID. 04/17: We will repeat procalcitonin per ID, MRI brain pending, SNF placement pending, [facility] plans to start T-piece trials in the morning and will discontinue Good catheter again. 04/18: Overnight patient to be straight cath x2 but did eventually have spontaneous urine output today and Good catheter was not replaced, patient had MRI brain today and was started on T-piece trials. He received Versed for sedation for MRI brain. 04/19: Good catheter was not replaced overnight patient is still voiding, placed on T-piece today, scopolamine and Robinul restarted. 04/20: Patient T-piece trial again today, will decrease bowel regimen in a.m. for entering T-piece for 24 hours obtain gas in the a.m. Cefazolin increased 04/21: Patient remained on trach collar throughout the day, will be transitioned to IMCU. Good catheter was replaced overnight due to retention. 04/22: Patient continues to tolerate Trach collar, still with volume overload will continue with diuresis, monitor electrolytes, aggressive pulmonary toliet, aspiration precautions 04/23: Patient remains on trach collar which he is tolerating. Remains on cefazolin, Cardura and Lasix. 04/24: KVNG overnight. Patient is AAO, following commands, and tolerating T-piece. Continue PT 5X/week. Pending SNF vs Subacute rehab placement, case management to arrange. 04/25: KVNG overnight. Remains stable, tolerating T-piece. Plan for possible PSMV trial with speech once available. 04/26: Patient remains stable on T-piece. Awaiting possible SNF placement, case management to arrange. 04/27: Patient remains clinically stable continues on T-piece awaiting SNF placement. Mild leukocytosis but otherwise improving no fever noted at this time. Continue diuresis as there is improvement noted. He is able to vocalize words. Will defer to pulmonary about capping trials. 04/28: Continues to show some improvement. We will continue current management and diuresis as needed. Continue capping trial. Will check labs in a.m. Plan of care discussed with the patient and case management 04/29: Patient seen and examined resting comfortably labs are intact still anemic but stable. Continue current management we will run a trial of diuresis x3. 04/30: Continue supportive care. Wean as tolerated. PMV valve has been ordered for his trach size. 05/01: I obtained x-ray to further evaluate left knee shows DJD. We'll add some Ultram for pain control. Otherwise continue current management. Case management awaiting [facility]. 05/02 : Approved for SNF placement. Will be discharged at 1 pm today. Assessment and Plan #Acute Hypoxic Respiratory Failure #COVID Pneumonia - Intubated on 03/10 due to worsen hypoxia on BIPAP - 2/2 s/p Tracheostomy - T-piece- 28% and 5L - Pulmonary on consult - Continue Nebs per CCM - Pulmonary hygiene - keep patient net negative for better lung compliance - Aspiration precaution HOB above 30 - Continue SPO2 monitoring for SPO2 goal above 92% #Sepsis #COVID Pneumonia #MSSA pneumonia -Infectious disease consulted, appreciate recommendations -S/p remdesivir for 5 days -S/p Actemra 03/10/2021 -f/u blood culture -Monitor WBC and temperature curve -s/p steroids -04/18 procal 0.19 -03/16 Fungitell and histoplasma negative -On high dose Cefazolin per ID #Acute Encephalopathy-improved - AAO, following commands - CT head/brain no acute Abn. - Repeat CT head and MRI brain noted - Avoid benzodiazepine to reduce the possibility of delirium - Prn analgesia for pain management - Maintenance of sleep-wake cycle - PT consulted, appreciate recommendations: PT recommends subacute rehab if patient does not qualify for LTAC #Hypertension - 03/09 Echocardiogram shows a mildly dilated ascending aorta, normal LV systolic function, mild concentric LVH, LVEF 60 to 65% - Continue current antihypertensive regimen - PRN Labetalol for SBP above 160 - Continue Blood pressure monitoring per protocol #Urinary retention - Good catheter removed 04/17 and replaced 04/21 - Continue Doxazosin BID - Strict intake and output - Avoid nephrotoxic medications; Renally dose medications - Monitor and replace electrolytes as needed - Trend BMP #Acute right upper extremity DVT - Bilateral lower extremity ultrasounds negative for DVT, superficial thrombus in left gastrocnemius vein - CTA chest shows no gross pulm embolism - bilateral upper extremity ultrasound shows DVT in right upper extremity - Continue PO Eliquis - SCDs to BLE while in bed - Transfuse hemoglobin less than 7 - Monitor for signs of bleeding #Anemia -Stable, continue supportive care #Endo:Type 2 DM - Continue high dose SSI Q6hrs - Lantus qHs - Avoid Hypoglycemia Disposition: [facility] Final Discharge Diagnosis (Prints w/discharge instructions): Acute hypoxic respiratory failure, covid 19 pneumonia Time spent for discharge: 35 Core Measure Documentation - Palliative Care Palliative Care/ Comfort Measures: Not Applicable - Core Measures Any of the following diagnoses?: none Exam - Physical Exam Narrative exam: - Physical exam Narrative exam: General appearance: Present: no acute distress, well-nourished, obese, vocalizing through the trach - EENT Eyes: Present: PERRL, EOM intact ENT: hearing intact, clear oral mucosa, dentition normal - Neck Neck: Present: Trach collar, ROM - Respiratory Respiratory effort: normal Respiratory: bilateral: CTA, diminished - Cardiovascular Rhythm: regular Heart Sounds: Present: S1 & S2. Absent: systolic murmur, diastolic murmur - Extremities Extremities: no ischemia, pulses intact, pulses symmetrical, normal temperature Peripheral Pulses: within normal limits - Abdominal General gastrointestinal: soft, non-tender, non-distended, normal bowel sounds - Integumentary Integumentary: Present: warm, +1 edema, overall improving, left knee nontender on palpation. No crepitation felt. - Psychiatric Psychiatric: cooperative - Neurologic Neurologic: CNII-XII intact, no focal deficits, moves all extremities - Allied Health Allied health notes reviewed: nursing, PT, OT, RT, social work - Constitutional Vitals: Temp Pulse Resp BP Pulse Ox 98.8 F 84 24 130/78 96 05/02/21 04:00 05/02/21 13:03 05/02/21 12:00 05/02/21 13:03 05/02/21 12:00 Plan Activity: advance as tolerated Follow up with: [facility] [Primary Care Provider] - 7 Days Prescriptions: Insulin Glargine [Lantus VIAL] 18 units SUB-Q QHS 30 Days #2 vial amLODIPine 10 mg FEEDTUBE DAILY 30 Days #30 tablet hydrALAZINE [Apresoline TAB] 50 mg FEEDTUBE Q8HR 30 Days #90 tablet Doxazosin [Cardura] 1 mg FEEDTUBE BID 30 Days #60 tablet Apixaban [Eliquis] 5 mg FEEDTUBE Q12HR 30 Days #60 tablet Glycopyrrolate 2 mg PO TID 30 Days #90 tablet cephALEXin [Keflex] 500 mg PO Q8HR 2 Days #6 cap Metoprolol [Lopressor TAB] 12.5 mg FEEDTUBE BID 30 Days #60 tablet Famotidine [Pepcid] 20 mg FEEDTUBE BID 30 Days #60 tablet
== END 2021-05-02 13:57 | DRG 4 ==
LOC: ED 19:29 → 3A 03-09 01:26 → CC1 03-10 15:42 → IMCU 04-22 17:42
PROVIDERS: ADMIT Hospitalist; ATTEND Internal Medicine
PROC: 5A09457 Assistance with Respiratory Ventilation, 24-96 Consecutive Hours, Continuous Positive Airway Pressure (ICD-10-PCS; 2021-03-08)
PROC: XW033E5 Introduction of Remdesivir Anti-infective into Peripheral Vein, Percutaneous Approach, New Technology Group 5 (ICD-10-PCS; 2021-03-09)
PROC: 5A1955Z Respiratory Ventilation, Greater than 96 Consecutive Hours (ICD-10-PCS; principal; 2021-03-10)
PROC: 0BH17EZ Insertion of Endotracheal Airway into Trachea, Via Natural or Artificial Opening (ICD-10-PCS; 2021-03-10)
PROC: XW033H5 Introduction of Tocilizumab into Peripheral Vein, Percutaneous Approach, New Technology Group 5 (ICD-10-PCS; 2021-03-10)
PROC: 4A033R1 Measurement of Arterial Saturation, Peripheral, Percutaneous Approach (ICD-10-PCS; 2021-03-13)
PROC: 0B113F4 Bypass Trachea to Cutaneous with Tracheostomy Device, Percutaneous Approach (ICD-10-PCS; 2021-03-29)
PROC: 0DH63UZ Insertion of Feeding Device into Stomach, Percutaneous Approach (ICD-10-PCS; 2021-03-29)
PROC: 0BJ08ZZ Inspection of Tracheobronchial Tree, Via Natural or Artificial Opening Endoscopic (ICD-10-PCS; 2021-03-29)
DX: A41.89 Other specified sepsis (principal); J96.01 Acute respiratory failure with hypoxia; J12.82 Pneumonia due to coronavirus disease 2019; U07.1 COVID-19; J15.211 Pneumonia due to Methicillin susceptible Staphylococcus aureus; G93.41 Metabolic encephalopathy; I82.621 Acute embolism and thrombosis of deep veins of right upper extremity; E87.0 Hyperosmolality and hypernatremia; R65.20 Severe sepsis without septic shock; I10 Essential (primary) hypertension; E11.65 Type 2 diabetes mellitus with hyperglycemia; E66.9 Obesity, unspecified; Z68.36 Body mass index [BMI] 36.0-36.9, adult; E87.5 Hyperkalemia; I82.462 Acute embolism and thrombosis of left calf muscular vein; K64.4 Residual hemorrhoidal skin tags; R33.9 Retention of urine, unspecified; Z82.49 Family history of ischemic heart disease and other diseases of the circulatory system
CPT/HCPCS: 36415; 36600; 70450; 70551; 71045; 71275; 74018; 80048; 80053; 80202; 81001; 82140; 82565; 82728; 82803; 82805; 82962; 83615; 83735; 83880; 84100; 84132; 84145; 84478; 85007; 85014; 85018; 85025; 85027; 85049; 85379; 85520; 85610; 85730; 86140; 87040; 87070; 87076; 87086; 87116; 87186; 87205; 93005; 93010; 93306; 93970; 94002; 94003; 94640; 94644; 94760; G0378; J3490; J9280; Q0162; Q9967; C8929; J0330; J0360; J0456; J0690; J0692; J0696; J1100; J1630; J1644; J1650; J1815; J1940; J2060; J2250; J2405; J2704; J2765; J2920; J2930; J3010; J3262; J3370; J7030; J7040; J7042; J7050; J7070; J7512; U0003

== ENCOUNTER 2021-07-25 10:32 | Inpatient (IN) | payer OTHER ==
[2021-07-25] MEDS ORDERED: ALBUTEROL 2.5 MG/3 ML NEBU IH ONE ×2 (10:38→10:42)
[2021-07-25] MEDS ORDERED: methylPREDNISolone Sod Succinate 125 MG/2 ML INJ IM ONE (10:53)
--- NOTE | 2021-07-25 11:07 | XRay Report ---
CHEST 1 VIEW 07/25/2021 10:52 AM INDICATION / CLINICAL INFORMATION: pt trached; p/w agonal respirations. COMPARISON: 04/30/2021 FINDINGS: SUPPORT DEVICES: Stable, satisfactory device positioning. HEART / MEDIASTINUM: Stable cardiomegaly. LUNGS / PLEURA: Stable low lung volumes with bilateral vascular crowding. Retrocardiac opacity is see n. No pneumothorax. ADDITIONAL FINDINGS: No significant additional findings. IMPRESSION: 1. Retrocardiac pulmonary opacity could indicate atelectasis or developing pneumonia. Signer Name: Phani Lara MD Signed: 07/25/2021 11:03 AM Workstation Name: [id number]
[2021-07-25 11:09] LABS: Hematocrit 37.5 % (35.5-45.6); Hemoglobin 12.2 gm/dl (11.8-15.2); Mean Corpuscular HGB Conc 32 % (32-34); Mean Corpuscular Volume 85 fl (84-94); Platelet Count 415 K/mm3 (140-440); Red Blood Count 4.42 M/mm3 (3.65-5.03); Red Cell Distribution Width 16.2 % (13.2-15.2)
[2021-07-25] MEDS ORDERED: CEFEPIME/NS 1 GM/100 ML 1 GM/100 ML BAG IV ONE (11:17)
[2021-07-25 11:33] LABS: Alanine Aminotransferase 9 units/L (7-56); Albumin 3.8 g/dL (3.9-5); BUN/Creatinine Ratio 10; Blood Urea Nitrogen 8 mg/dL (9-20); Calcium 9.1 mg/dL (8.4-10.2); Hemolysis Index 28
[2021-07-25] MEDS ORDERED: SODIUM CHLORIDE 0.9% 1000 ML 1,000 ML IV ONE (11:46)
[2021-07-25 11:53] LABS: ABG Base Excess 2.4 mmol/L (-2.0-3.0); ABG HCO3 37.2 mmol/L (20.0-26.0); ABG Methemoglobin 0.6 % (0.0-1.5); ABG Oxygen Saturation 93.5 % (95.0-99.0); ABG PCO2 144.5 mm Hg; ABG PO2 97.5 mm Hg (80.0-90.0)
[2021-07-25 11:58] LABS: ABG PH 7.029 pH Units (7.350-7.450)
[2021-07-25] MEDS ORDERED: propofoL 200 MG/20 ML VIAL IV ONE (12:04)
[2021-07-25 12:29] LABS: Bacteria,Urine 4+ /HPF (Negative); Bilirubin,Urine NEG (Negative); Blood,Urine NEG (Negative); Color,Urine Yellow (Yellow); Hyaline Casts,Urine 21 /LPF; Mucus,Urine FEW /HPF; Sperm,Urine 3+ /HPF (NP); Urobilinogen,Urine < 2.0 mg/dL (<2.0)
[2021-07-25 12:34] LABS: Protein,Urine >500 mg/dL (Negative)
--- NOTE | 2021-07-25 12:42 | Emergency Department Report ---
ED Shortness of Breath HPI - General Chief Complaint: Dyspnea/Respdistress Stated Complaint: RESP DISTRESS Time Seen by Provider: 07/25/21 10:39 Source: EMS Mode of arrival: Stretcher Limitations: Altered Mental Status - History of Present Illness Initial Comments: Of note patient is unable to talk at the time of arrival. HPI provided by EMS personnel. 61-year-old obese male who is trach and ventilator dependent, documented history of type 2 diabetes mellitus, ischemic cardiomyopathy, [id number] bedbound, brought in from [facility] for severe respiratory distress. No further information provided by EMS personnel. MD Complaint: shortness of breath -: unknown Radiation: other (Unknown) Pain Scale: 0 Consistency: constant Improves With: nothing Worsens With: nothing Known History Of: other (Chronic hypoxic respiratory failure) Context: other (unknown) Associated Symptoms: fever Treatments Prior to Arrival: oxygen - Related Data Home Oxygen Therapy: Yes (pt is on ventilator at SNF) Home Oxygen Amount: other (ventilator [id number]) Home Medications Medication Instructions Recorded Confirmed Last Taken No Known Home Medications [No 03/11/21 03/11/21 Unknown Reported Home Medications] Previous Rx's Medication Instructions Recorded Last Taken Type Apixaban [Eliquis] 5 mg FEEDTUBE Q12HR 30 Days #60 05/02/21 Unknown Rx tablet Doxazosin [Cardura] 1 mg FEEDTUBE BID 30 Days #60 05/02/21 Unknown Rx tablet Famotidine [Pepcid] 20 mg FEEDTUBE BID 30 Days #60 05/02/21 Unknown Rx tablet Glycopyrrolate 2 mg PO TID 30 Days #90 tablet 05/02/21 Unknown Rx Insulin Glargine [Lantus VIAL] 18 units SUB-Q QHS 30 Days #2 vial 05/02/21 Unknown Rx Metoprolol [Lopressor TAB] 12.5 mg FEEDTUBE BID 30 Days #60 05/02/21 Unknown Rx tablet amLODIPine 10 mg FEEDTUBE DAILY 30 Days #30 05/02/21 Unknown Rx tablet cephALEXin [Keflex] 500 mg PO Q8HR 2 Days #6 cap 05/02/21 Unknown Rx hydrALAZINE [Apresoline TAB] 50 mg FEEDTUBE Q8HR 30 Days #90 05/02/21 Unknown Rx tablet Allergies Allergy/AdvReac Type Severity Reaction Status Date / Time No Known Allergies Allergy Verified 07/25/21 11:02 ED Review of Systems ROS: Stated complaint: RESP DISTRESS Other details as noted in HPI Comment: All other systems reviewed and negative Constitutional: no symptoms reported, see HPI, chills, other (HPI limited secondary to pt's ) Eyes: other (unknown; pt unable to provide HPI) ENT: other (unknown; pt unable to provide HPI) Respiratory: SOB at rest Cardiovascular: other (unable to obtain due to pt's clinical condition ) Endocrine: no symptoms reported, other (unable to obtain due to pt's clinical condition ) Gastrointestinal: other (unable to obtain due to pt's clinical condition ) Genitourinary: other (unable to obtain due to pt's clinical condition ) Skin: other (unable to obtain due to pt's clinical condition ) Neurological: other (unable to obtain due to pt's clinical condition ) Psychiatric: other (unable to obtain due to pt's clinical condition ) Hematological/Lymphatic: other (unable to obtain due to pt's clinical condition ) ED Past Medical Hx - Past Medical History Hx Hypertension: Yes Hx Deep Vein Thrombosis: Yes Hx Liver Disease: No Hx Renal Disease: No Hx HIV: No - Social History Smoking Status: Unknown if ever smoked - Medications Home Medications: Home Medications Medication Instructions Recorded Confirmed Last Taken Type No Known Home Medications [No 03/11/21 03/11/21 Unknown History Reported Home Medications] Apixaban [Eliquis] 5 mg FEEDTUBE Q12HR 30 Days #60 05/02/21 Unknown Rx tablet Doxazosin [Cardura] 1 mg FEEDTUBE BID 30 Days #60 05/02/21 Unknown Rx tablet Famotidine [Pepcid] 20 mg FEEDTUBE BID 30 Days #60 05/02/21 Unknown Rx tablet Glycopyrrolate 2 mg PO TID 30 Days #90 tablet 05/02/21 Unknown Rx Insulin Glargine [Lantus VIAL] 18 units SUB-Q QHS 30 Days #2 vial 05/02/21 Unknown Rx Metoprolol [Lopressor TAB] 12.5 mg FEEDTUBE BID 30 Days #60 05/02/21 Unknown Rx tablet amLODIPine 10 mg FEEDTUBE DAILY 30 Days #30 05/02/21 Unknown Rx tablet cephALEXin [Keflex] 500 mg PO Q8HR 2 Days #6 cap 05/02/21 Unknown Rx hydrALAZINE [Apresoline TAB] 50 mg FEEDTUBE Q8HR 30 Days #90 05/02/21 Unknown Rx tablet ED Physical Exam - General Limitations: Altered Mental Status General appearance: lethargic, in distress - Head Head exam: Present: atraumatic, normocephalic - Eye Eye exam: Present: normal appearance, PERRL, EOMI Pupils: Present: normal accommodation - ENT ENT exam: Present: normal exam, normal orophraynx, mucous membranes moist - Neck Neck exam: Present: normal inspection, tenderness, full ROM - Respiratory Respiratory exam: Present: respiratory distress, wheezes, rales, accessory muscle use, decreased breath sounds. Absent: chest wall tenderness - Cardiovascular Cardiovascular Exam: Present: normal rhythm, tachycardia. Absent: bradycardia, irregular rhythm, normal heart sounds, systolic murmur, rubs, gallop - GI/Abdominal GI/Abdominal exam: Present: soft, distended, tenderness, normal bowel sounds, hernia. Absent: hyperactive bowel sounds, hypoactive bowel sounds, organomegaly, mass, bruit, pulsatile mass - Extremities Exam Extremities exam: Present: normal inspection, full ROM, tenderness, normal capillary refill - Back Exam Back exam: Present: normal inspection, full ROM. Absent: tenderness, CVA tenderness (R), CVA tenderness (L), muscle spasm, paraspinal tenderness, vertebral tenderness - Neurological Exam Neurological exam: Present: other (pt not verbally responsive) - Psychiatric Psychiatric exam: Present: other (pt nonverbal at this time) - Skin Skin exam: Present: diaphoretic ED Course Vital Signs 07/25/21 07/25/21 07/25/21 10:38 10:45 11:01 Temperature Pulse Rate 94 H 98 H 96 H Respiratory 19 15 16 Rate Blood Pressure 168/83 O2 Sat by Pulse 100 97 92 Oximetry 07/25/21 07/25/21 07/25/21 11:15 11:19 11:26 Temperature 97.6 F Pulse Rate 95 H Respiratory 21 46 H Rate Blood Pressure 104/62 O2 Sat by Pulse 95 94 Oximetry 07/25/21 11:57 Temperature Pulse Rate 910 H Respiratory 0 L Rate Blood Pressure 106/53 O2 Sat by Pulse 99 Oximetry - Reevaluation(s) Reevaluation #1: 07/25/21 13:25 pt appears more comfortable; no severe respiratory distress observed at this time ED Medical Decision Making - Lab Data Result diagrams: 07/25/21 Unknown 07/25/21 Unknown - EKG Data EKG shows normal: sinus rhythm Rate: tachycardia - Medical Decision Making 61-year-old male with multiple medical comorbidities presents for evaluation by EMS secondary to difficulty breathing or shortness of breath. Patient is dyspneic and tachypneic here, and unable to provide any aspect of HPI. Patient was seen and evaluated by respiratory therapy. Suction provided but this did not improve the patient's symptoms. Patient was placed on a ventilator and had spontaneous improvement in his respiratory rate after continuous management by respiratory therapy. Serum labs reviewed. Patient has an elevated lactic acid as well as leukocytosis. Patient has chest x-ray which demonstrates possible re trocardiac pneumonia. He was treated with broad-spectrum antibiotics to cover HCAP. With respect to sedation, patient had been seen in the past by . I telephoned Dr. Gambino, the covering budget coordinator. He advises that I telephoned Dr. Diaz directly. I received a return call from Dr. Whiting. She is covering for . She will see the patient during his inpatient admission in the MICU. Sedation drip ordered. Pt treated with cefepime for coverage of HCAP. Case reviewed with Dr. Lozano. pt has been accepted to the MICU for further treatment/management. Care of patient transferred to him. Critical Care Time: Yes Critical care time in (mins) excluding proc time.: 30 Critical care attestation.: If time is entered above; I have spent that time in minutes in the direct care of this critically ill patient, excluding procedure time. ED Disposition Clinical Impression: Acute respiratory distress, HCAP (healthcare-associated pneumonia) Disposition: ADMITTED INPATIENT Is pt being admited?: Yes Does the pt Need Aspirin: No Condition: Stable Instructions: Bacterial Pneumonia (ED) Referrals: PRIMARY CARE, [Primary Care Provider] - 3-5 Days
--- NOTE | 2021-07-25 13:29 | Cat Scan Report ---
CT head/brain wo con INDICATION / CLINICAL INFORMATION: 61 years Male; pt trached; sent from SNF for altered mental statu. TECHNIQUE: Routine CT head without contrast. All CT scans at this location are performed using CT dos e reduction for ALARA by means of automated exposure control. COMPARISON: The study is compared to previous CT of 04/10/2021. FINDINGS: BRAIN / INTRACRANIAL CONTENTS: The motion degrades the image quality. However, there appears be mild cerebral white matter disease most consistent with microvascular angiopathy. The ventricular system i s appropriate in size and configuration. There is no gross CT evidence of acute intracranial hemorrha ge or significant mass effect. ORBITS: No significant abnormality of visualized orbits. SINUSES / MASTOIDS: There is minimal mucosal thickening along the visualized inferior right maxillary sinus. CRANIOCERVICAL JUNCTION: No significant abnormality. ADDITIONAL FINDINGS: None. IMPRESSION: 1. The study is limited by motion. However, there is continued mild microvascular angiopathy without clear CT evidence of acute intracranial hemorrhage. Signer Name: Jose Daniel Carrero MD Signed: 07/25/2021 1:24 PM Workstation Name: [id number]
[2021-07-25 13:43] LABS: Total Cells Counted 100
[2021-07-25 13:44] LABS: Basophils % (Manual) 0 % (0.0-1.8); Eosinophils % (Manual) 0 % (0.0-4.3)
[2021-07-25 13:45] LABS: Hypochromasia Few; Platelet Estimate Consistent w Auto; Spherocytes Few
[2021-07-25] MEDS: fentaNYL DRIP Premix 2,000 MCG/100 ML BAG IV SCH (14:11)
[2021-07-25] MEDS ORDERED: cefTRIAXone/NS 1 GM/50 ML 1 GM/50 ML BAG IV ONE (14:13)
[2021-07-25 15:04] LABS: ABG HCO3 34.3 mmol/L (20.0-26.0); ABG Methemoglobin 0.6 % (0.0-1.5); ABG Oxygen Saturation 98.7 % (95.0-99.0); ABG PCO2 86.5 mm Hg; ABG PH 7.217 pH Units (7.350-7.450); ABG PO2 162.9 mm Hg (80.0-90.0)
[2021-07-25] MEDS ORDERED: HYDROmorphone 0.5 MG/0.5 ML INJ IV PRN (16:00)
[2021-07-25] MEDS ORDERED: MORPHINE 2 MG/1 ML INJ IV PRN (16:00)
[2021-07-25] MEDS ORDERED: SODIUM CHLORIDE 0.9% 1000 ML 1,000 ML IV SCH (16:00)
[2021-07-25] MEDS ORDERED: ONDANSETRON 4 MG/2 ML INJ IV PRN (16:00)
--- NOTE | 2021-07-25 16:44 | Consultation ---
History of Present Illness Consult date: 07/25/21 Requesting physician: SUKHWINDER ABDULLAHI Reason for consult: other (resp failure- hypercapnic, on MVS) History of present illness: 61-year-old obese male who is s/p trach and ventilator dependent, documented history of type 2 diabetes mellitus, ischemic cardiomyopathy, chronically bedbound, brought in from [facility] for severe respiratory distress. No further information provided by EMS personnel. On arrival to ED was in distress, placed on MVS and ED physician called me to help guide care Patient seen and examined. Vitals, labs, medications,chart reviewed. On MVS, s/p trach, encephalopathic- CT head in ED was negative for intracaranial hemorrhage, mass or infarct. Chronic changes Medications and Allergies Allergies Allergy/AdvReac Type Severity Reaction Status Date / Time No Known Allergies Allergy Verified 07/25/21 11:02 Home Medications Medication Instructions Recorded Confirmed Last Taken Type No Known Home Medications [No 03/11/21 03/11/21 Unknown History Reported Home Medications] Apixaban [Eliquis] 5 mg FEEDTUBE Q12HR 30 Days #60 05/02/21 Unknown Rx tablet Doxazosin [Cardura] 1 mg FEEDTUBE BID 30 Days #60 05/02/21 Unknown Rx tablet Famotidine [Pepcid] 20 mg FEEDTUBE BID 30 Days #60 05/02/21 Unknown Rx tablet Glycopyrrolate 2 mg PO TID 30 Days #90 tablet 05/02/21 Unknown Rx Insulin Glargine [Lantus VIAL] 18 units SUB-Q QHS 30 Days #2 vial 05/02/21 Unknown Rx Metoprolol [Lopressor TAB] 12.5 mg FEEDTUBE BID 30 Days #60 05/02/21 Unknown Rx tablet amLODIPine 10 mg FEEDTUBE DAILY 30 Days #30 05/02/21 Unknown Rx tablet cephALEXin [Keflex] 500 mg PO Q8HR 2 Days #6 cap 05/02/21 Unknown Rx hydrALAZINE [Apresoline TAB] 50 mg FEEDTUBE Q8HR 30 Days #90 05/02/21 Unknown Rx tablet Active Meds: Active Medications Acetaminophen (Acetaminophen 325 Mg Tab) 650 mg PO Q4H PRN PRN Reason: Pain MILD(1-3)/Fever >100.5/RAYO Fentanyl (Fentanyl 100 Mcg/2 Ml Inj) 50 mcg IV Q10MIN PRN PRN Reason: ANALGESIA Heparin Sodium (Porcine) (Heparin 5,000 Unit/1 Ml Vial) 5,000 unit SUB-Q Q12HR BLANCA Hydromorphone HCl (Hydromorphone 0.5 Mg/0.5 Ml Inj) 0.5 mg IV Q3H PRN PRN Reason: Pain , Severe (7-10) Fentanyl Citrate (Fentanyl Drip Premix) 2,000 mcg in 100 mls @ 5.67 mls/hr IV TITR BLANCA; Protocol Last Admin: 07/25/21 14:11 Dose: 1 mcg/kg/hr, 5.67 mls/hr Sodium Chloride (Nacl 0.9% 1000 Ml) 1,000 mls @ 75 mls/hr IV DIRECT BLANCA Morphine Sulfate (Morphine 2 Mg/1 Ml Inj) 2 mg IV Q4H PRN PRN Reason: Pain, Moderate (4-6) Ondansetron HCl (Ondansetron 4 Mg/2 Ml Inj) 4 mg IV Q8H PRN PRN Reason: Nausea And Vomiting Sodium Chloride (Sodium Chloride 0.9% 10 Ml Flush Syringe) 10 ml IV BID BLANCA Sodium Chloride (Sodium Chloride 0.9% 10 Ml Flush Syringe) 10 ml IV PRN PRN PRN Reason: LINE FLUSH Review of Systems ROS unobtainable: due to endotracheal tube, due to mental status Physical Examination Vital signs: Vital Signs Pulse Resp Pulse Ox 94 H 19 100 07/25/21 10:38 07/25/21 10:38 07/25/21 10:38 General appearance: appears uncomfortable, other (atraumatic, normocephalic, tra ch to vent with dyssynchrony) Eyes: non-icteric ENT: oropharynx dry Neck: supple, no lymphadenopathy Effort: very labored Ascultation: Bilateral: diminished breath sounds, wheezes Cardiovascular: regular rate and rhythm, other (S1,S2) Gastrointestinal: normoactive bowel sounds, soft, non-tender, other (PEG) Integumentary: normal Extremities: cool, edema unable to assess Results - Laboratory Findings CBC and BMP: 07/26/21 03:50 07/26/21 07:44 ABG ABG pH 7.029 pH Units (7.350-7.450) L* 07/25/21 Unknown ABG pH 7.217 pH Units (7.350-7.450) L 07/25/21 Unknown ABG pCO2 86.5 mm Hg 07/25/21 Unknown ABG pCO2 144.5 mm Hg 07/25/21 Unknown ABG pO2 97.5 mm Hg (80.0-90.0) H 07/25/21 Unknown ABG pO2 162.9 mm Hg (80.0-90.0) H 07/25/21 Unknown ABG O2 Saturation 93.5 % (95.0-99.0) L 07/25/21 Unknown ABG O2 Saturation 98.7 % (95.0-99.0) 07/25/21 Unknown Abnormal lab findings: Abnormal Labs 07/25/21 07/25/21 07/25/21 11:19 Unknown Unknown WBC 18.1 H RDW 16.2 H Seg Neutrophils # Man 12.1 H ABG pH ABG pO2 ABG HCO3 ABG O2 Saturation ABG Base Excess ABG Hemoglobin Oxyhemoglobin Sodium 129 L Chloride 90.1 L BUN 8 L Glucose 258 H Lactic Acid Albumin 3.8 L Urine WBC (Auto) 26.0 H 07/25/21 07/25/21 07/25/21 Unknown Unknown Unknown WBC RDW Seg Neutrophils # Man ABG pH 7.029 L* 7.217 L ABG pO2 97.5 H 162.9 H ABG HCO3 37.2 H 34.3 H ABG O2 Saturation 93.5 L ABG Base Excess 4.0 H ABG Hemoglobin 12.7 L 12.5 L Oxyhemoglobin 91.7 L Sodium Chloride BUN Glucose Lactic Acid 4.90 H* Albumin Urine WBC (Auto) - Diagnostic Findings Chest x-ray: image reviewed (Bilateral interstial infiltrates, low lung volumes) Assessment and Plan Acute and chronic Respiratory Failure with Hypoxia and Hypercapnia 2/2 HCAP and CHF exacerbation on MVS Tracheostomy status Oropharyngeal dysphagia s/p PEG h/o Ischemic cardiomyopathy -Adjust minute ventilation fro better gas exchange -Lung protective strategies, monitoring airway pressures -High peak airway pressures, change vent mode to Pressure control ventilation Pi 28. Will get follow up ABG and adjust settings, if pH<7.1 will give bicarbonate -Trach care, airway clearance, secretion management -Oxygen restrictive strategies, titrate supplemental oxygen to keep SpO2 88-90% -CXR, ABG as clinically indicated -Daily assessment for readiness to wean. Daily SBT -Fentanyl infusion- Titrate to ventilator synchrony - CXR suggesting possible pulmonary edema, pulmonary venous hypertension -Diuresis while monitoring renal function, hemodynamics and electrolyte profile -Replete electrolytes as clinically indicated - IV steroids and bronchodilator therapy -Empiric antibiotics therapy for HCAP- get procalitonin levels. -Accuchecks with glycemic control. target blood glucose 140-180 mg/dL. Avoid hypoglycemia Patient has PEG -VTE prophylaxis- Heparin. Patient was apparently on ELiquis at the [place]- get medication list for reconciliation. -Stress ulcer prophylaxis- famotidine -Mobility, frequent turning, off loading per facility protocol to prevent pressure ulcers - Strict I&Os and Daily weights. Heart failure measures -Chronic home medications as clinically indicated. -Get lower extremity dopplers r/o DVT -Maintain sleep wake cycle, avoid benzodiazepines. -Limit delirium CONDITION:CRITICAL PROGNOSIS: GUARDED CODE STATUS; FULL CODE The high probability of a clinically significant, sudden or life threatening deterioration of the respiratory, cardiovascular, neurology system required my full and direct attention, intervention and personal management. The aggregate critical care time was [75] minutes. This time is in addition to time spent performing reported procedures but includes the following: [x] Data Review and interpretation [x] Patient assessment and monitoring of vital signs [x] Documentation [x] Medication orders and management
[2021-07-25] MEDS: fentaNYL 100 MCG/2 ML INJ IV PRN (19:00)
[2021-07-25] MEDS: HEPARIN 5,000 UNIT/1 ML VIAL SUB-Q SCH (21:30)
[2021-07-25] MEDS ORDERED: IPRATROPIUM/ALBUTEROL SULFATE 3 ML AMPUL.NEB IH PRN (21:35)
--- NOTE | 2021-07-25 21:42 | History and Physical Report ---
History of Present Illness Date of examination: 07/25/21 Date of admission: 07/25/21 16:33 Chief complaint: Increasing shortness of breath for 1 day History of present illness: 61-year-old obese male who is trach and ventilator dependent, documented history of type 2 diabetes mellitus, ischemic cardiomyopathy, bedbound, brought in from [facility] for severe respiratory distress. No further information provided by EMS personnel. Patient was hypoxic in the emergency room. - Past Medical History --Hypertension: Yes --IDDM - Social History --Smoking Status: Unknown if ever smoked - Medications --Home Medications: Home Medications Medication Instructions Recorded Confirmed Last Taken Type No Known Home Medications [No 03/11/21 03/11/21 Unknown History Reported Home Medications] Apixaban [Eliquis] 5 mg FEEDTUBE Q12HR 30 Days #60 05/02/21 Unknown Rx tablet Doxazosin [Cardura] 1 mg FEEDTUBE BID 30 Days #60 05/02/21 Unknown Rx tablet Famotidine [Pepcid] 20 mg FEEDTUBE BID 30 Days #60 05/02/21 Unknown Rx tablet Glycopyrrolate 2 mg PO TID 30 Days #90 tablet 05/02/21 Unknown Rx Insulin Glargine [Lantus VIAL] 18 units SUB-Q QHS 30 Days #2 vial 05/02/21 Unknown Rx Metoprolol [Lopressor TAB] 12.5 mg FEEDTUBE BID 30 Days #60 05/02/21 Unknown Rx tablet amLODIPine 10 mg FEEDTUBE DAILY 30 Days #30 05/02/21 Unknown Rx tablet cephALEXin [Keflex] 500 mg PO Q8HR 2 Days #6 cap 05/02/21 Unknown Rx hydrALAZINE [Apresoline TAB] 50 mg FEEDTUBE Q8HR 30 Days #90 05/02/21 Unknown Rx tablet Review of Systems ROS: Stated complaint: RESP DISTRESS Other details as noted in HPI Comment: All other systems reviewed and negative Constitutional: no symptoms reported, see HPI, chills, other (HPI limited secondary to pt's ) Eyes: other (unknown; pt unable to provide HPI) ENT: other (unknown; pt unable to provide HPI) Respiratory: SOB at rest Cardiovascular: other (unable to obtain due to pt's clinical condition ) Endocrine: no symptoms reported, other (unable to obtain due to pt's clinical condition ) Gastrointestinal: other (unable to obtain due to pt's clinical condition ) Genitourinary: other (unable to obtain due to pt's clinical condition ) Skin: other (unable to obtain due to pt's clinical condition ) Neurological: other (unable to obtain due to pt's clinical condition ) Psychiatric: other (unable to obtain due to pt's clinical condition ) Hematological/Lymphatic: other (unable to obtain due to pt's clinical condition ) Medications and Allergies Allergies Allergy/AdvReac Type Severity Reaction Status Date / Time No Known Allergies Allergy Verified 07/25/21 11:02 Home Medications Medication Instructions Recorded Confirmed Last Taken Type No Known Home Medications [No 03/11/21 03/11/21 Unknown History Reported Home Medications] Apixaban [Eliquis] 5 mg FEEDTUBE Q12HR 30 Days #60 05/02/21 Unknown Rx tablet Doxazosin [Cardura] 1 mg FEEDTUBE BID 30 Days #60 05/02/21 Unknown Rx tablet Famotidine [Pepcid] 20 mg FEEDTUBE BID 30 Days #60 05/02/21 Unknown Rx tablet Glycopyrrolate 2 mg PO TID 30 Days #90 tablet 05/02/21 Unknown Rx Insulin Glargine [Lantus VIAL] 18 units SUB-Q QHS 30 Days #2 vial 05/02/21 Unknown Rx Metoprolol [Lopressor TAB] 12.5 mg FEEDTUBE BID 30 Days #60 05/02/21 Unknown Rx tablet amLODIPine 10 mg FEEDTUBE DAILY 30 Days #30 05/02/21 Unknown Rx tablet cephALEXin [Keflex] 500 mg PO Q8HR 2 Days #6 cap 05/02/21 Unknown Rx hydrALAZINE [Apresoline TAB] 50 mg FEEDTUBE Q8HR 30 Days #90 05/02/21 Unknown Rx tablet Active Meds: Active Medications Acetaminophen (Acetaminophen 325 Mg Tab) 650 mg PO Q4H PRN PRN Reason: Pain MILD(1-3)/Fever >100.5/RAYO Acetylcysteine (Acetylcysteine 20% 200 Mg/1 Ml *For Inhalation Use*) 200 mg INHALATION Q8HRT BLANCA Albuterol (Albuterol 2.5 Mg/3 Ml Nebu) 2.5 mg IH Q8HRT BLANCA Albuterol/Ipratropium (Ipratropium/Albuterol Sulfate 3 Ml Ampul.Neb) 1 ampul IH Q3H PRN PRN Reason: Wheezing Albuterol/Ipratropium (Ipratropium/Albuterol Sulfate 3 Ml Ampul.Neb) 1 ampul IH QIDRT BLANCA Famotidine (Famotidine 20 Mg/2 Ml Inj) 20 mg IV BID BLANCA Fentanyl (Fentanyl 100 Mcg/2 Ml Inj) 50 mcg IV Q10MIN PRN PRN Reason: ANALGESIA Last Admin: 07/25/21 19:00 Dose: 50 mcg Heparin Sodium (Porcine) (Heparin 5,000 Unit/1 Ml Vial) 5,000 unit SUB-Q Q12HR BLANCA Last Admin: 07/25/21 21:30 Dose: 5,000 unit Hydromorphone HCl (Hydromorphone 0.5 Mg/0.5 Ml Inj) 0.5 mg IV Q3H PRN PRN Reason: Pain , Severe (7-10) Fentanyl Citrate (Fentanyl Drip Premix) 2,000 mcg in 100 mls @ 5.67 mls/hr IV TITR BLANCA; Protocol Last Titration: 07/25/21 19:03 Dose: 2 mcg/kg/hr, 11.34 mls/hr Sodium Chloride (Nacl 0.9% 1000 Ml) 1,000 mls @ 75 mls/hr IV DIRECT BLANCA Last Admin: 07/25/21 19:07 Dose: 75 mls/hr Cefepime HCl (Cefepime/Ns 2 Gm/100 Ml) 2 gm in 100 mls @ 200 mls/hr IV Q8H BLANCA; Protocol Methylprednisolone Sodium Succinate (Methylprednisolone Sod Succinate 125 Mg/2 Ml Inj) 125 mg IV Q8HR BLANCA Morphine Sulfate (Morphine 2 Mg/1 Ml Inj) 2 mg IV Q4H PRN PRN Reason: Pain, Moderate (4-6) Ondansetron HCl (Ondansetron 4 Mg/2 Ml Inj) 4 mg IV Q8H PRN PRN Reason: Nausea And Vomiting Sodium Chloride (Sodium Chloride 0.9% 10 Ml Flush Syringe) 10 ml IV BID BLANCA Last Admin: 07/25/21 21:31 Dose: 10 ml Sodium Chloride (Sodium Chloride 0.9% 10 Ml Flush Syringe) 10 ml IV PRN PRN PRN Reason: LINE FLUSH Last Admin: 07/25/21 19:01 Dose: 10 ml Exam - Constitutional Vitals: Temp Pulse Resp BP Pulse Ox 97.6 F 66 11 L 114/63 98 07/25/21 11:19 07/25/21 20:11 07/25/21 20:11 07/25/21 20:11 07/25/21 20:11 HEART Score - HEART Score Troponin: Troponin T < 0.010 ng/mL (0.00-0.029) 07/25/21 Unknown Results - Labs CBC & Chem 7: 07/26/21 03:50 07/26/21 03:50 Labs: Laboratory Last Values WBC 18.1 K/mm3 (4.5-11.0) H 07/25/21 Unknown RBC 4.42 M/mm3 (3.65-5.03) 07/25/21 Unknown Hgb 12.2 gm/dl (11.8-15.2) 07/25/21 Unknown Hct 37.5 % (35.5-45.6) 07/25/21 Unknown MCV 85 fl (84-94) 07/25/21 Unknown MCH 28 pg (28-32) 07/25/21 Unknown MCHC 32 % (32-34) 07/25/21 Unknown RDW 16.2 % (13.2-15.2) H 07/25/21 Unknown Plt Count 415 K/mm3 (140-440) 07/25/21 Unknown Lymph # (Auto) Change Room Attendant 07/25/21 Unknown Add Manual Diff Complete 07/25/21 Unknown Total Counted 100 07/25/21 Unknown Seg Neuts % (Manual) 67.0 % (40.0-70.0) 07/25/21 Unknown Band Neutrophils % 0 % 07/25/21 Unknown Lymphocytes % (Manual) 29.0 % (13.4-35.0) 07/25/21 Unknown Reactive Lymphs % (Man) 0 % 07/25/21 Unknown Monocytes % (Manual) 4.0 % (0.0-7.3) 07/25/21 Unknown Eosinophils % (Manual) 0 % (0.0-4.3) 07/25/21 Unknown Basophils % (Manual) 0 % (0.0-1.8) 07/25/21 Unknown Metamyelocytes % 0 % 07/25/21 Unknown Myelocytes % 0 % 07/25/21 Unknown Promyelocytes % 0 % 07/25/21 Unknown Blast Cells % 0 % 07/25/21 Unknown Nucleated RBC % Not Reportable 07/25/21 Unknown Seg Neutrophils # Man 12.1 K/mm3 (1.8-7.7) H 07/25/21 Unknown Band Neutrophils # 0.0 K/mm3 07/25/21 Unknown Lymphocytes # (Manual) 5.2 K/mm3 (1.2-5.4) 07/25/21 Unknown Abs React Lymphs (Man) 0.0 K/mm3 07/25/21 Unknown Monocytes # (Manual) 0.7 K/mm3 (0.0-0.8) 07/25/21 Unknown Eosinophils # (Manual) 0.0 K/mm3 (0.0-0.4) 07/25/21 Unknown Basophils # (Manual) 0.0 K/mm3 (0.0-0.1) 07/25/21 Unknown Metamyelocytes # 0.0 K/mm3 07/25/21 Unknown Myelocytes # 0.0 K/mm3 07/25/21 Unknown Promyelocytes # 0.0 K/mm3 07/25/21 Unknown Blast Cells # 0.0 K/mm3 07/25/21 Unknown WBC Morphology Not Reportable 07/25/21 Unknown Hypersegmented Neuts Not Reportable 07/25/21 Unknown Hyposegmented Neuts Not Reportable 07/25/21 Unknown Hypogranular Neuts Not Reportable 07/25/21 Unknown Smudge Cells Not Reportable 07/25/21 Unknown Toxic Granulation Not Reportable 07/25/21 Unknown Toxic Vacuolation Not Reportable 07/25/21 Unknown Dohle Bodies Not Reportable 07/25/21 Unknown Pelger-Huet Anomaly Not Reportable 07/25/21 Unknown Mely Rods Not Reportable 07/25/21 Unknown Platelet Estimate Consistent w auto 07/25/21 Unknown Clumped Platelets Not Reportable 07/25/21 Unknown Plt Clumps, EDTA Not Reportable 07/25/21 Unknown Large Platelets Not Reportable 07/25/21 Unknown Giant Platelets Not Reportable 07/25/21 Unknown Platelet Satelliting Not Reportable 07/25/21 Unknown Plt Morphology Comment Not Reportable 07/25/21 Unknown RBC Morphology Not Reportable 07/25/21 Unknown Dimorphic RBCs Not Reportable 07/25/21 Unknown Polychromasia Not Reportable 07/25/21 Unknown Hypochromasia Few 07/25/21 Unknown Poikilocytosis Not Reportable 07/25/21 Unknown Anisocytosis Not Reportable 07/25/21 Unknown Microcytosis Not Reportable 07/25/21 Unknown Macrocytosis Not Reportable 07/25/21 Unknown Spherocytes Few 07/25/21 Unknown Pappenheimer Bodies Not Reportable 07/25/21 Unknown Sickle Cells Not Reportable 07/25/21 Unknown Target Cells Not Reportable 07/25/21 Unknown Tear Drop Cells Not Reportable 07/25/21 Unknown Ovalocytes Not Reportable 07/25/21 Unknown Helmet Cells Not Reportable 07/25/21 Unknown [place] Bodies Not Reportable 07/25/21 Unknown [place] Rings Not Reportable 07/25/21 Unknown [place] Cells Not Reportable 07/25/21 Unknown Bite Cells Not Reportable 07/25/21 Unknown Crenated Cell Not Reportable 07/25/21 Unknown Elliptocytes Not Reportable 07/25/21 Unknown Acanthocytes (Spur) Not Reportable 07/25/21 Unknown Rouleaux Not Reportable 07/25/21 Unknown Hemoglobin C Crystals Not Reportable 07/25/21 Unknown Schistocytes Not Reportable 07/25/21 Unknown Malaria parasites Not Reportable 07/25/21 Unknown [place] Bodies Not Reportable 07/25/21 Unknown Hem Pathologist Commnt No 07/25/21 Unknown ABG pH 7.029 pH Units (7.350-7.450) L* 07/25/21 Unknown ABG pH 7.217 pH Units (7.350-7.450) L 07/25/21 Unknown ABG pCO2 86.5 mm Hg 07/25/21 Unknown ABG pCO2 144.5 mm Hg 07/25/21 Unknown ABG pO2 97.5 mm Hg (80.0-90.0) H 07/25/21 Unknown ABG pO2 162.9 mm Hg (80.0-90.0) H 07/25/21 Unknown ABG HCO3 34.3 mmol/L (20.0-26.0) H 07/25/21 Unknown ABG HCO3 37.2 mmol/L (20.0-26.0) H 07/25/21 Unknown ABG O2 Saturation 93.5 % (95.0-99.0) L 07/25/21 Unknown ABG O2 Saturation 98.7 % (95.0-99.0) 07/25/21 Unknown ABG O2 Content 16.5 (0.0-44) 07/25/21 Unknown ABG O2 Content 17.3 (0.0-44) 07/25/21 Unknown ABG Base Excess 2.4 mmol/L (-2.0-3.0) 07/25/21 Unknown ABG Base Excess 4.0 mmol/L (-2.0-3.0) H 07/25/21 Unknown ABG Hemoglobin 12.5 gm/dl (14.0-18.0) L 07/25/21 Unknown ABG Hemoglobin 12.7 gm/dl (14.0-18.0) L 07/25/21 Unknown ABG Carboxyhemoglobin 0.9 % (0.0-5.0) 07/25/21 Unknown ABG Carboxyhemoglobin 1.2 % (0.0-5.0) 07/25/21 Unknown ABG Methemoglobin 0.6 % (0.0-1.5) 07/25/21 Unknown ABG Methemoglobin 0.6 % (0.0-1.5) 07/25/21 Unknown Oxyhemoglobin 91.7 % (95.0-99.0) L 07/25/21 Unknown Oxyhemoglobin 97.1 % (95.0-99.0) 07/25/21 Unknown FiO2 80 % 07/25/21 Unknown FiO2 100 % 07/25/21 Unknown Sodium 129 mmol/L (137-145) L 07/25/21 Unknown Potassium 4.6 mmol/L (3.6-5.0) 07/25/21 Unknown Chloride 90.1 mmol/L (98-107) L 07/25/21 Unknown Carbon Dioxide 26 mmol/L (22-30) 07/25/21 Unknown Anion Gap 18 mmol/L 07/25/21 Unknown BUN 8 mg/dL (9-20) L 07/25/21 Unknown Creatinine 0.8 mg/dL (0.8-1.3) 07/25/21 Unknown Estimated GFR > 60 ml/min 07/25/21 Unknown BUN/Creatinine Ratio 10 % 07/25/21 Unknown Glucose 258 mg/dL (75-100) H 07/25/21 Unknown Lactic Acid 4.90 mmol/L (0.7-2.0) H* 07/25/21 Unknown Calcium 9.1 mg/dL (8.4-10.2) 07/25/21 Unknown Total Bilirubin 0.20 mg/dL (0.1-1.2) 07/25/21 Unknown AST 15 units/L (5-40) 07/25/21 Unknown ALT 9 units/L (7-56) 07/25/21 Unknown Alkaline Phosphatase 74 units/L (35-129) 07/25/21 Unknown Troponin T < 0.010 ng/mL (0.00-0.029) 07/25/21 Unknown Total Protein 8.0 g/dL (6.3-8.2) 07/25/21 Unknown Albumin 3.8 g/dL (3.9-5) L 07/25/21 Unknown Albumin/Globulin Ratio 0.9 % 07/25/21 Unknown Urine Color Yellow (Yellow) 07/25/21 11:19 Urine Turbidity Cloudy (Clear) 07/25/21 11:19 Urine pH 6.0 (5.0-7.0) 07/25/21 11:19 Ur Specific [place] 1.015 (1.003-1.030) 07/25/21 11:19 Urine Protein >500 mg/dL (Negative) 07/25/21 11:19 Urine Glucose (UA) 150 mg/dL (Negative) 07/25/21 11:19 Urine Ketones Neg mg/dL (Negative) 07/25/21 11:19 Urine Blood Neg (Negative) 07/25/21 11:19 Urine Nitrite Neg (Negative) 07/25/21 11:19 Urine Bilirubin Neg (Negative) 07/25/21 11:19 Urine Urobilinogen < 2.0 mg/dL (<2.0) 07/25/21 11:19 Ur Leukocyte Esterase Neg (Negative) 07/25/21 11:19 Urine WBC (Auto) 26.0 /HPF (0.0-6.0) H 07/25/21 11:19 Urine RBC (Auto) 53.0 /HPF (0.0-6.0) 07/25/21 11:19 U Epithel Cells (Auto) 7.0 /HPF (0-13.0) 07/25/21 11:19 Urine Bacteria (Auto) 4+ /HPF (Negative) 07/25/21 11:19 Hyaline Casts 21 /LPF 07/25/21 11:19 Urine Mucus Few /HPF 07/25/21 11:19 Urine Yeast (Budding) 2+ /HPF 07/25/21 11:19 Urine Sperm 3+ /HPF (ADVERTISING MANAGER) 07/25/21 11:19 Short CBC 07/25/21 07/26/21 Range/Units Unknown 03:50 WBC 18.1 H 15.5 H (4.5-11.0) K/mm3 Hgb 12.2 12.0 (11.8-15.2) gm/dl Hct 37.5 37.9 (35.5-45.6) % Plt Count 415 348 (140-440) K/mm3 BMP 07/25/21 07/26/21 Unknown 03:50 Sodium 129 L 132 L Potassium 4.6 6.0 H D Chloride 90.1 L 93.2 L Carbon Dioxide 26 28 BUN 8 L 18 Creatinine 0.8 1.1 Glucose 258 H 171 H Calcium 9.1 9.1 Cardiac Enzymes 07/25/21 Range/Units Unknown Troponin T < 0.010 (0.00-0.029) ng/mL Liver Function 07/25/21 07/26/21 Range/Units Unknown 03:50 Total Bilirubin 0.20 0.20 (0.1-1.2) mg/dL AST 15 19 (5-40) units/L ALT 9 11 (7-56) units/L Alkaline Phosphatase 74 73 (35-129) units/L Albumin 3.8 L 3.7 L (3.9-5) g/dL Urine 07/25/21 Range/Units 11:19 Urine Color Yellow (Yellow) Urine pH 6.0 (5.0-7.0) Ur Specific [place] 1.015 (1.003-1.030) Urine Protein >500 (Negative) mg/dL Urine Glucose (UA) 150 (Negative) mg/dL Microbiology: Microbiology 07/25/21 11:44 Peripheral/Venous Blood Culture - Preliminary Culture in Progress 07/25/21 11:23 Peripheral/Venous Blood Culture - Preliminary Culture in Progress - Imaging and Cardiology Chest x-ray: report reviewed Imaging and Cardiology: Chest x-ray Retrocardiac pulmonary opacities could indicate atelectasis or developing pneumonia Good/IV: Voiding Method Condom Catheter Assessment and Plan Assessment and plan: Critical care statement The high probability OF a clinically significant sudden or life-threatening deterioration of the cardiorespiratory system and endocrine system required my full and direct attention, intervention and postoperative management. The aggregate critical care time was 40 minutes. The time is in addition to time spent performing reported procedures but includes the followin: Data review and interpretation 2: Patient assessment and monitoring of vital signs 3: Documentation 4:: Medication orders and management Advance Directives: Yes (Full code) VTE prophylaxis?: Chemical Plan of care discussed with patient/family: Yes - Patient Problems (1) Acute respiratory failure with hypoxia and hypercapnia Current Visit: Yes Status: Acute Plan to address problem: Patient has high PCO2 and hypoxia Needs vent management and increased ventilation Vent management per stoper IV antibiotics (2) Sepsis Current Visit: Yes Status: Acute Qualifiers: Severe sepsis shock status: without septic shock Plan to address problem: High lactic acid and high white count Patient initiated on IV cefepime and vancomycin (3) HCAP (healthcare-associated pneumonia) Current Visit: Yes Status: Acute Plan to address problem: Patient has developing pneumonia IV cefepime and IV vancomycin (4) T2DM (type 2 diabetes mellitus) Current Visit: Yes Status: Chronic Qualifiers: Diabetes mellitus nursing home insulin use: unspecified terminal worker insulin use status Plan to address problem: Coverage for now Check hemoglobin A1c (5) Hypertension Current Visit: Yes Status: Chronic Qualifiers: Hypertension type: primary hypertension Qualified Code(s): I10 - Essential (primary) hypertension Plan to address problem: Continue antihypertensives and adjust medications as necessary (6) Anticoagulation adequate Current Visit: Yes Status: Chronic Plan to address problem: Continue Eliquis (7) DVT prophylaxis Current Visit: Yes Status: Acute Plan to address problem: On Eliquis and GI prophylaxis (8) Advance care planning Current Visit: Yes Status: Acute Plan to address problem: Could not be done because of the patient's condition and no family member being available
[2021-07-25] MEDS ORDERED: VANCOMYCIN PHARMACY TO DOSE IV SCH (22:00)
[2021-07-25 22:07] LABS: ABG HCO3 39.3 mmol/L (20.0-26.0); ABG Methemoglobin 0.7 % (0.0-1.5); ABG Oxygen Saturation 99.4 % (95.0-99.0); ABG PCO2 197.6 mm Hg
[2021-07-25 22:18] LABS: ABG PO2 331.8 mm Hg (80.0-90.0)
[2021-07-25 22:20] LABS: ABG PH 6.917 pH Units (7.350-7.450)
[2021-07-25] MEDS: methylPREDNISolone Sod Succinate 125 MG/2 ML INJ IV SCH (22:43)
[2021-07-25] MEDS: CEFEPIME/NS 2 GM/100 ML 2 GM/100 ML BAG IV SCH (22:43)
[2021-07-25] MEDS: FAMOTIDINE 20 MG/2 ML INJ IV SCH (22:43)
[2021-07-25] MEDS ORDERED: VANCOMYCIN 2,000 MG in SODIUM CHLORIDE 0.9% 500 ML 500 ML IV ONE (23:00)
[2021-07-26] MEDS ORDERED: ALBUTEROL 2.5 MG/3 ML NEBU IH SCH
[2021-07-26] MEDS ORDERED: SODIUM BICARB 8.4% 50 MEQ/50 ML SYRINGE IV ONE ×3 (00:04→00:30)
[2021-07-26] MEDS ORDERED: ALBUTEROL 2.5 MG/3 ML NEBU IH ONE (00:41)
[2021-07-26] MEDS: ACETYLCYSTEINE 20% 200 MG/1 ML *FOR INHALATION USE INHALATION SCH ×4 (01:10→23:23)
[2021-07-26] MEDS: fentaNYL DRIP Premix 2,000 MCG/100 ML BAG IV SCH ×2 (02:45→21:58)
--- NOTE | 2021-07-26 02:47 | XRay Report ---
CHEST 1 VIEW INDICATION / CLINICAL INFORMATION: f/u pt. on ventilator. COMPARISON: Chest x-ray 07/25/2021 FINDINGS: SUPPORT DEVICES: Tracheostomy tube stable HEART / MEDIASTINUM: Borderline cardiomegaly stable. LUNGS / PLEURA: Diffuse bilateral interstitial and airspace opacities remain more prevalent throughou t the left lung with some improvement in aeration of the left lung base suggested. BONES: No significant osseous abnormality. ADDITIONAL FINDINGS: No significant additional findings. IMPRESSION: 1. Interval improvement. Signer Name: Diaz Bella II, MD Signed: 07/26/2021 2:43 AM Workstation Name: [id number]
[2021-07-26 04:31] LABS: Hematocrit 37.9 % (35.5-45.6); Mean Corpuscular HGB Conc 32 % (32-34); Mean Corpuscular Volume 87 fl (84-94); Platelet Count 348 K/mm3 (140-440); Red Blood Count 4.35 M/mm3 (3.65-5.03); Red Cell Distribution Width 15.4 % (13.2-15.2)
[2021-07-26 04:50] LABS: Alanine Aminotransferase 11 units/L (7-56); Albumin 3.7 g/dL (3.9-5); BUN/Creatinine Ratio 16; Blood Urea Nitrogen 18 mg/dL (9-20); Calcium 9.1 mg/dL (8.4-10.2); Hemolysis Index 35
[2021-07-26 05:02] LABS: ABG Base Excess 2.8 mmol/L (-2.0-3.0); ABG HCO3 33.9 mmol/L (20.0-26.0); ABG Methemoglobin 0.6 % (0.0-1.5); ABG Oxygen Saturation 95.2 % (95.0-99.0); ABG PO2 65.5 mm Hg (80.0-90.0)
[2021-07-26 05:07] LABS: ABG PH 7.17 pH Units (7.350-7.450)
[2021-07-26] MEDS: CEFEPIME/NS 2 GM/100 ML 2 GM/100 ML BAG IV SCH ×3 (05:12→21:58)
[2021-07-26] MEDS: methylPREDNISolone Sod Succinate 125 MG/2 ML INJ IV SCH (05:12)
[2021-07-26 05:21] LABS: Basophils % (Manual) 0 % (0.0-1.8); Eosinophils % (Manual) 0 % (0.0-4.3); Total Cells Counted 100
[2021-07-26 05:22] LABS: Anisocytosis 1+; Spherocytes Few
[2021-07-26 05:23] LABS: Platelet Estimate Consistent w Auto
[2021-07-26] MEDS ORDERED: IPRATROPIUM/ALBUTEROL SULFATE 3 ML AMPUL.NEB IH SCH (08:00)
--- NOTE | 2021-07-26 09:04 | Electrocardiograph Report ---
[facility] Test Date: 2021-07-25 Test Time: 10:42:42 Pat Name: RAN JONES Department: Room: A260 Gender: M Gasateria Attendant: PRETTY : 1960 Requested By: BRODY BLACKWOOD Order Number: [id number] Reading MD: Bryson Santoro Measurements Intervals [place] Rate: 95 P: 31 WI: 186 QRS: -15 QRSD: 100 T: 86 QT: 379 QTc: 477 Interpretive Statements Sinus rhythm Left atrial enlargement Left ventricular hypertrophy nonspecific st-t Compared to ECG 03/19/2021 08:54:41 Atrial abnormality now present ST (T wave) deviation now present Sinus tachycardia no longer present Electronically Signed On 07-26-2021 9:04:15 EDT by Bryson Santoro
[2021-07-26] MEDS: FAMOTIDINE 20 MG/2 ML INJ IV SCH (09:38)
[2021-07-26] MEDS: fentaNYL 100 MCG/2 ML INJ IV PRN (09:38)
[2021-07-26] MEDS: HEPARIN 5,000 UNIT/1 ML VIAL SUB-Q SCH ×3 (09:39→21:58)
[2021-07-26] MEDS ORDERED: FUROSEMIDE 40 MG/4 ML INJ IV SCH (09:45)
[2021-07-26] MEDS ORDERED: DEXTROSE 50% IN WATER (25GM) 50 ML SYRINGE IV PRN (12:22)
[2021-07-26] MEDS: VANCOMYCIN 2,000 MG in SODIUM CHLORIDE 0.9% 500 ML 500 ML IV SCH (13:00)
[2021-07-26] MEDS ORDERED: SODIUM POLYSTYRENE 15 GM/60 ML ORAL LIQD PO SCH (13:00)
[2021-07-26] MEDS: INSULIN REGULAR, HUMAN 100 UNITS/1 ML SUB-Q SCH ×2 (13:10→17:25)
[2021-07-26 13:27] LABS: ABG Base Excess 3.2 mmol/L (-2.0-3.0); ABG HCO3 31.4 mmol/L (20.0-26.0); ABG Methemoglobin 0.6 % (0.0-1.5); ABG Oxygen Saturation 97.1 % (95.0-99.0); ABG PCO2 67.3 mm Hg; ABG PH 7.286 pH Units (7.350-7.450)
--- NOTE | 2021-07-26 14:03 | Progress Note ---
Assessment and Plan Acute and chronic hypoxemic and hypercapnic Respiratory Failure 2/2 HCAP on MVS HCAP AE-CHF exacerbation s/p Tracheostomy Oropharyngeal dysphagia s/p PEG h/o Ischemic cardiomyopathy - continue current PCV with inspiratory presure of 30 cm H2O for now - repeat ABG in am - continue Daily SAT and SBT assessment as tolerated - continue to wean supplemental oxygen for target O2 sat's > 90% acutely - VAP bundle addressed - continue lung protective strategies - continue bronchodilators with pulmonary hygiene per RT - wean per pulmonary driven protocols otherwise - continue accuchecks with glycemic control per SSI (While critically ill target blood glucose of 140-180 mg/dL; avoid hypoglycemia) - sedation prn for target RASS 0 to -1 - avoid nephrotoxins, renally dose all medications - continue to avoid benzodiazepine's, reduce the possibility of delirium - AB's per ID rec's - prn analgesia per CPOT score - Maintenance of sleep-wake cycle, avoid delirium - continue enteral nutritional support at goal rate as tolerated - G.I. & VTE prophylaxis - PT/OT/ROM exercises - continue mobility protocols for pressure ulcer prophylaxis - Monitor hemodynamics closely - continue other care per attending / other consultants - discharge planning ongoing concurrently COVID SPECIFIC INTERVENTIONS - test pending .... Re-evaluate in am & prn CONDITION: CRITICAL PROGNOSIS: GUARDED CODE STATUS: FULL CODE The high probability of a clinically significant, sudden or life-threatening deterioration of the [respiratory, cardiovascular & neurologic] system(s) required my full and direct attention, intervention and personal management. The aggregate critical care time was [36] minutes without overlap. Time includes spent on; [x] Data Review and interpretation [x] Patient assessment and monitoring of vital signs [x] Documentation [x] Medication orders and management Subjective Date of service: 07/26/21 Principal diagnosis: Ac and ch hypoxemic and hypercapnic Resp Failure; HCAP; AE- CHF; s/p Trach Interval history: Patient is seen today for: Acute and chronic hypoxemic and hypercapnic Respiratory Failure; HCAP; AE-CHF; s/p Tracheostomy; H/O Ischemic cardiomyopathy Seen and examined at bedside; 24hour events reviewed; nursing and respiratory care staff consulted; no adverse overnight events reported to me; resting peacefully in bed; remains on MVS; hypercapnia improving; he denies N/V/F/C Objective Vital Signs - 12hr 07/26/21 07/26/21 07/26/21 02:11 02:21 02:30 Temperature Pulse Rate 84 87 84 Pulse Rate [ Bilateral] Pulse Rate [ Left Dorsalis Pedis] Pulse Rate [ Left Radial] Pulse Rate [ Right Dorsalis Pedis] Pulse Rate [ Right Radial] Respiratory 12 16 9 L Rate Respiratory Rate [Bilateral ] Blood Pressure 115/71 115/71 129/73 O2 Sat by Pulse 96 83 L 84 Oximetry O2 Sat by Pulse Oximetry [ Assessment] 07/26/21 07/26/21 07/26/21 02:41 02:50 02:51 Temperature Pulse Rate 82 85 Pulse Rate [ Bilateral] Pulse Rate [ Left Dorsalis Pedis] Pulse Rate [ Left Radial] Pulse Rate [ Right Dorsalis Pedis] Pulse Rate [ Right Radial] Respiratory 8 L 20 8 L Rate Respiratory Rate [Bilateral ] Blood Pressure 129/73 129/73 O2 Sat by Pulse 92 98 92 Oximetry O2 Sat by Pulse Oximetry [ Assessment] 07/26/21 07/26/21 07/26/21 03:00 03:11 03:21 Temperature Pulse Rate 88 87 Pulse Rate [ Bilateral] Pulse Rate [ Left Dorsalis Pedis] Pulse Rate [ Left Radial] Pulse Rate [ Right Dorsalis Pedis] Pulse Rate [ Right Radial] Respiratory 10 L 9 L 9 L Rate Respiratory Rate [Bilateral ] Blood Pressure 102/51 102/51 102/51 O2 Sat by Pulse 91 91 90 Oximetry O2 Sat by Pulse Oximetry [ Assessment] 07/26/21 07/26/21 07/26/21 03:30 03:41 03:51 Temperature Pulse Rate 87 87 89 Pulse Rate [ Bilateral] Pulse Rate [ Left Dorsalis Pedis] Pulse Rate [ Left Radial] Pulse Rate [ Right Dorsalis Pedis] Pulse Rate [ Right Radial] Respiratory 9 L 9 L 9 L Rate Respiratory Rate [Bilateral ] Blood Pressure 109/49 109/49 109/49 O2 Sat by Pulse 94 91 91 Oximetry O2 Sat by Pulse Oximetry [ Assessment] 07/26/21 07/26/21 07/26/21 03:53 04:00 04:11 Temperature 97.6 F 97.6 F Pulse Rate 86 90 Pulse Rate [ Bilateral] Pulse Rate [ Left Dorsalis Pedis] Pulse Rate [ Left Radial] Pulse Rate [ Right Dorsalis Pedis] Pulse Rate [ Right Radial] Respiratory 9 L 10 L Rate Respiratory Rate [Bilateral ] Blood Pressure 99/47 99/47 O2 Sat by Pulse 90 93 Oximetry O2 Sat by Pulse Oximetry [ Assessment] 07/26/21 07/26/21 07/26/21 04:20 04:30 04:41 Temperature Pulse Rate 90 92 H 91 H Pulse Rate [ Bilateral] Pulse Rate [ Left Dorsalis Pedis] Pulse Rate [ Left Radial] Pulse Rate [ Right Dorsalis Pedis] Pulse Rate [ Right Radial] Respiratory 9 L 11 L 9 L Rate Respiratory Rate [Bilateral ] Blood Pressure 99/47 105/59 99/47 O2 Sat by Pulse 94 94 95 Oximetry O2 Sat by Pulse Oximetry [ Assessment] 07/26/21 07/26/21 07/26/21 04:51 05:00 05:11 Temperature Pulse Rate 90 88 91 H Pulse Rate [ Bilateral] Pulse Rate [ Left Dorsalis Pedis] Pulse Rate [ Left Radial] Pulse Rate [ Right Dorsalis Pedis] Pulse Rate [ Right Radial] Respiratory 9 L 15 16 Rate Respiratory Rate [Bilateral ] Blood Pressure 99/47 106/58 106/58 O2 Sat by Pulse 95 96 Oximetry O2 Sat by Pulse Oximetry [ Assessment] 07/26/21 07/26/21 07/26/21 05:21 05:23 05:30 Temperature Pulse Rate 92 H 92 H Pulse Rate [ Bilateral] Pulse Rate [ Left Dorsalis Pedis] Pulse Rate [ Left Radial] Pulse Rate [ Right Dorsalis Pedis] Pulse Rate [ Right Radial] Respiratory 19 20 22 Rate Respiratory Rate [Bilateral ] Blood Pressure 106/58 103/59 O2 Sat by Pulse 97 98 97 Oximetry O2 Sat by Pulse Oximetry [ Assessment] 07/26/21 07/26/21 07/26/21 07:00 07:57 08:04 Temperature Pulse Rate 95 H Pulse Rate [ 89 Bilateral] Pulse Rate [ 96 H Left Dorsalis Pedis] Pulse Rate [ 96 H Left Radial] Pulse Rate [ 96 H Right Dorsalis Pedis] Pulse Rate [ 96 H Right Radial] Respiratory 20 Rate Respiratory 30 H Rate [Bilateral ] Blood Pressure 104/54 O2 Sat by Pulse 97 97 Oximetry O2 Sat by Pulse 99 Oximetry [ Assessment] 07/26/21 07/26/21 07/26/21 08:10 10:00 11:30 Temperature 98.5 F Pulse Rate 92 H Pulse Rate [ Bilateral] Pulse Rate [ 91 H Left Dorsalis Pedis] Pulse Rate [ 91 H Left Radial] Pulse Rate [ 91 H Right Dorsalis Pedis] Pulse Rate [ 91 H Right Radial] Respiratory 20 Rate Respiratory Rate [Bilateral ] Blood Pressure O2 Sat by Pulse 100 Oximetry O2 Sat by Pulse Oximetry [ Assessment] 07/26/21 11:45 Temperature Pulse Rate 92 H Pulse Rate [ Bilateral] Pulse Rate [ Left Dorsalis Pedis] Pulse Rate [ Left Radial] Pulse Rate [ Right Dorsalis Pedis] Pulse Rate [ Right Radial] Respiratory Rate Respiratory Rate [Bilateral ] Blood Pressure 118/59 O2 Sat by Pulse 100 Oximetry O2 Sat by Pulse Oximetry [ Assessment] Constitutional: other (atraumatic, normocephalic, trach to vent with mild ventilator dyssynchrony) Eyes: non-icteric ENT: oropharynx moist, other (midline tracheostomy) Neck: supple, no lymphadenopathy, no JVD Effort: mildly labored Ascultation: Bilateral: diminished breath sounds, rhonchi Percussion: Bilateral: not dull Cardiovascular: regular rate and rhythm, other (S1,S2) Gastrointestinal: normoactive bowel sounds, soft, non-tender, other (PEG) Integumentary: normal Extremities: no cyanosis, pulses normal, no ischemia or petechiae, edema Neurologic: pupils equal and round, other (moves all extremities) Psychiatric: mood appropriate, affect normal CBC and BMP: 07/27/21 04:54 07/27/21 04:54 ABG, PT/INR, D-dimer: ABG ABG pH 7.286 pH Units (7.350-7.450) L 07/26/21 12:34 ABG pCO2 67.3 mm Hg 07/26/21 12:34 ABG pO2 100.0 mm Hg (80.0-90.0) H 07/26/21 12:34 ABG O2 Saturation 97.1 % (95.0-99.0) 07/26/21 12:34 Abnormal lab findings: Abnormal Labs 07/25/21 07/25/21 07/25/21 11:19 21:50 Unknown WBC 18.1 H RDW 16.2 H Seg Neuts % (Manual) Lymphocytes % (Manual) Seg Neutrophils # Man 12.1 H Lymphocytes # (Manual) ABG pH 6.917 L* ABG pO2 331.8 H ABG HCO3 39.3 H ABG O2 Saturation 99.4 H ABG Base Excess ABG Hemoglobin 12.1 L Oxyhemoglobin Sodium Potassium Chloride BUN Glucose POC Glucose Lactic Acid Albumin Urine WBC (Auto) 26.0 H 07/25/21 07/25/21 07/25/21 Unknown Unknown Unknown WBC RDW Seg Neuts % (Manual) Lymphocytes % (Manual) Seg Neutrophils # Man Lymphocytes # (Manual) ABG pH 7.029 L* ABG pO2 97.5 H ABG HCO3 37.2 H ABG O2 Saturation 93.5 L ABG Base Excess ABG Hemoglobin 12.7 L Oxyhemoglobin 91.7 L Sodium 129 L Potassium Chloride 90.1 L BUN 8 L Glucose 258 H POC Glucose Lactic Acid 4.90 H* Albumin 3.8 L Urine WBC (Auto) 07/25/21 07/26/21 07/26/21 Unknown 00:10 03:50 WBC 15.5 H RDW 15.4 H Seg Neuts % (Manual) 96.0 H Lymphocytes % (Manual) 3.0 L Seg Neutrophils # Man 14.9 H Lymphocytes # (Manual) 0.5 L ABG pH 7.217 L ABG pO2 162.9 H ABG HCO3 34.3 H ABG O2 Saturation ABG Base Excess 4.0 H ABG Hemoglobin 12.5 L Oxyhemoglobin Sodium Potassium Chloride BUN Glucose POC Glucose 158 H Lactic Acid Albumin Urine WBC (Auto) 07/26/21 07/26/21 07/26/21 03:50 04:30 07:44 WBC RDW Seg Neuts % (Manual) Lymphocytes % (Manual) Seg Neutrophils # Man Lymphocytes # (Manual) ABG pH 7.170 L* ABG pO2 65.5 L ABG HCO3 33.9 H ABG O2 Saturation ABG Base Excess ABG Hemoglobin 12.0 L Oxyhemoglobin 93.5 L Sodium 132 L Potassium 6.0 H D 5.6 H Chloride 93.2 L BUN Glucose 171 H POC Glucose Lactic Acid Albumin 3.7 L Urine WBC (Auto) 07/26/21 12:34 WBC RDW Seg Neuts % (Manual) Lymphocytes % (Manual) Seg Neutrophils # Man Lymphocytes # (Manual) ABG pH 7.286 L ABG pO2 100.0 H ABG HCO3 31.4 H ABG O2 Saturation ABG Base Excess 3.2 H ABG Hemoglobin 11.8 L Oxyhemoglobin Sodium Potassium Chloride BUN Glucose POC Glucose Lactic Acid Albumin Urine WBC (Auto) Chest x-ray: image reviewed (hypoventilation; mild interstitial edema; improved LLL atelectasis) Allied health notes reviewed: nursing
[2021-07-26] MEDS ORDERED: SIMPLE SYRUP 15 ML FEEDTUBE PRN ×2 (14:56)
[2021-07-26] MEDS ORDERED: LIPASE 10,500/PROTEASE 25,000/AMYLASE 43,750 (UNITS) DR CAP FEEDTUBE PRN (14:56)
[2021-07-26] MEDS ORDERED: SODIUM BICARBONATE 325 MG TAB FEEDTUBE PRN (14:56)
[2021-07-26] MEDS: IPRATROPIUM/ALBUTEROL SULFATE 3 ML AMPUL.NEB IH SCH ×2 (15:35→23:23)
--- NOTE | 2021-07-26 15:50 | Progress Note ---
<FLORIANMARISABEL ChambersLester - Last Filed: 07/26/21 15:47> Assessment and Plan Assessment and plan: This is a 61 year old male from a SNF with chronic hypoxic resp failure s/p trach, recent COVID 19 infection, ischemic cardiomyopathy IDDM, obesity admitted with acute on chronic resp failure, HAP, hyperkalemia, and lactic acidosis. Neuro: NAD -Sedated with fentanyl -RASS goal 0 to -1 -Avoid delirium -Reorientation as needed -Maintain sleep-wake cycle -As needed analgesia -CT head continued mild microvascular angiopathy without clear CT evidence of acute intercranial hemorrhage Cardiac: h/o HTN -Cardiology consulted, appreciate recommendations -Blood pressure monitoring per protocol -03/09/21 Echocardiogram LVEF 60-65% -Resume home antihtn regimen when indicated Respiratory: Acute on chronic hypercapnic respiratory failure, h/o s/p trach -CCM consulted, appreciate recommendations -A.m. vent settings: Pressure AC Rate 30, Peep 6, FiO2 50% -See RT notes for titration -A.m. ABG and CXR noted -VAP bundle -SPO2 monitoring GI: MO, moderate protein calorie malnutrition -24 hours -208 mL -PPI -NTR consulted for tube feedings -s/p PEG tube in place -BR: Senokat S : Hyponatremia, Hyperkalemia -Monitor intake and output -Renally dose medications -Avoid nephrotoxic medications -Daily weights -Kionax -Trend BMP ID: HAP -COVID PCR pending -MRSA PCR pending -Antibiotic therapy with vancomycin -contact/droplet precautions -f/u blood culture -Monitor WBC and temperature curve Endo: h/o DM -Avoid hypoglycemia -SSI -Accu-Cheks q. 6 Heme: Leukocytosis -Heparin subq -Trend CBC -Transfuse hemoglobin less than 7 -Monitor for signs of bleeding -SCDs to BLE while in bed The high probability of a clinically significant, sudden or life threatening deterioration of the [pulm] system(s) required my full and direct attention, intervention and personal management. The aggregate critical care time was [60] minutes. This time is in addition to time spent performing reported procedures but includes the following: [x] Data Review and interpretation [x] Patient assessment and monitoring of vital signs [x] Documentation [x] Medication orders and management Disposition Plan: icu Total Time Spent with Patient (Minutes): 60 History Interval history: This is a 61-year-old male who is a resident of a detention facility with chronic hypoxic respiratory failure s/p trach with vent dependency, recent COVID-19 infection, ischemic cardiomyopathy, type 2 diabetes mellitus, obesity who presented to the emergency department on 07/25 via EMS with chief complaints of respiratory distress from his intermediate. In the emergency department patient was placed on the ventilator as he was tachypneic, dyspneic and did not improve after suctioning. Work-up in the emergency department revealed lactic acidosis, leukocytosis and CXR revealed possible retrocardiac pneumonia and started on antibiotics for HAP. Patient was admitted to the hospitalist service with consults to [facility] with acute on chronic respiratory failure and HAP. Hospital course to date: 07/26: Stopped Solu-Medrol, given For hyperkalemia, started on tube feedings. Remains on fentanyl and Mucomyst Hospitalist Physical - Constitutional Vitals: Temp Pulse Resp BP Pulse Ox 98.5 F 100 H 20 134/75 97 07/26/21 08:10 07/26/21 15:35 07/26/21 15:35 07/26/21 15:35 07/26/21 15:43 General appearance: Present: no acute distress - EENT Eyes: Present: PERRL, EOM intact ENT: hearing intact, clear oral mucosa - Neck Neck: Present: normal ROM - Respiratory Respiratory effort: normal Respiratory: bilateral: diminished - Cardiovascular Rhythm: regular Heart Sounds: Present: S1 & S2. Absent: systolic murmur, diastolic murmur - Extremities Extremities: no ischemia, pulses intact, pulses symmetrical, No edema, normal temperature, normal color, Full ROM Peripheral Pulses: within normal limits - Abdominal General gastrointestinal: soft, non-tender, non-distended, normal bowel sounds - Integumentary Integumentary: Present: warm, dry - Psychiatric Psychiatric: appropriate mood/affect, cooperative - Neurologic Neurologic: CNII-XII intact, no focal deficits, moves all extremities - Allied Health Allied health notes reviewed: nursing, RT, social work HEART Score - HEART Score Troponin: Troponin T < 0.010 ng/mL (0.00-0.029) 07/25/21 Unknown Results - Labs CBC & Chem 7: 07/26/21 03:50 07/26/21 07:44 Labs: Laboratory Last Values WBC 15.5 K/mm3 (4.5-11.0) H 07/26/21 03:50 RBC 4.35 M/mm3 (3.65-5.03) 07/26/21 03:50 Hgb 12.0 gm/dl (11.8-15.2) 07/26/21 03:50 Hct 37.9 % (35.5-45.6) 07/26/21 03:50 MCV 87 fl (84-94) 07/26/21 03:50 MCH 28 pg (28-32) 07/26/21 03:50 MCHC 32 % (32-34) 07/26/21 03:50 RDW 15.4 % (13.2-15.2) H 07/26/21 03:50 Plt Count 348 K/mm3 (140-440) 07/26/21 03:50 Lymph # (Auto) Manager Data 07/25/21 Unknown Add Manual Diff Complete 07/26/21 03:50 Total Counted 100 07/26/21 03:50 Seg Neuts % (Manual) 96.0 % (40.0-70.0) H 07/26/21 03:50 Band Neutrophils % 0 % 07/26/21 03:50 Lymphocytes % (Manual) 3.0 % (13.4-35.0) L 07/26/21 03:50 Reactive Lymphs % (Man) 0 % 07/26/21 03:50 Monocytes % (Manual) 1.0 % (0.0-7.3) 07/26/21 03:50 Eosinophils % (Manual) 0 % (0.0-4.3) 07/26/21 03:50 Basophils % (Manual) 0 % (0.0-1.8) 07/26/21 03:50 Metamyelocytes % 0 % 07/26/21 03:50 Myelocytes % 0 % 07/26/21 03:50 Promyelocytes % 0 % 07/26/21 03:50 Blast Cells % 0 % 07/26/21 03:50 Nucleated RBC % Not Reportable 07/26/21 03:50 Seg Neutrophils # Man 14.9 K/mm3 (1.8-7.7) H 07/26/21 03:50 Band Neutrophils # 0.0 K/mm3 07/26/21 03:50 Lymphocytes # (Manual) 0.5 K/mm3 (1.2-5.4) L 07/26/21 03:50 Abs React Lymphs (Man) 0.0 K/mm3 07/26/21 03:50 Monocytes # (Manual) 0.2 K/mm3 (0.0-0.8) 07/26/21 03:50 Eosinophils # (Manual) 0.0 K/mm3 (0.0-0.4) 07/26/21 03:50 Basophils # (Manual) 0.0 K/mm3 (0.0-0.1) 07/26/21 03:50 Metamyelocytes # 0.0 K/mm3 07/26/21 03:50 Myelocytes # 0.0 K/mm3 07/26/21 03:50 Promyelocytes # 0.0 K/mm3 07/26/21 03:50 Blast Cells # 0.0 K/mm3 07/26/21 03:50 WBC Morphology Not Reportable 07/26/21 03:50 Hypersegmented Neuts Not Reportable 07/26/21 03:50 Hyposegmented Neuts Not Reportable 07/26/21 03:50 Hypogranular Neuts Not Reportable 07/26/21 03:50 Smudge Cells Not Reportable 07/26/21 03:50 Toxic Granulation Not Reportable 07/26/21 03:50 Toxic Vacuolation Not Reportable 07/26/21 03:50 Dohle Bodies Not Reportable 07/26/21 03:50 Pelger-Huet Anomaly Not Reportable 07/26/21 03:50 Mely Rods Not Reportable 07/26/21 03:50 Platelet Estimate Consistent w auto 07/26/21 03:50 Clumped Platelets Not Reportable 07/26/21 03:50 Plt Clumps, EDTA Not Reportable 07/26/21 03:50 Large Platelets Not Reportable 07/26/21 03:50 Giant Platelets Not Reportable 07/26/21 03:50 Platelet Satelliting Not Reportable 07/26/21 03:50 Plt Morphology Comment Not Reportable 07/26/21 03:50 RBC Morphology Not Reportable 07/26/21 03:50 Dimorphic RBCs Not Reportable 07/26/21 03:50 Polychromasia Not Reportable 07/26/21 03:50 Hypochromasia Not Reportable 07/26/21 03:50 Poikilocytosis Not Reportable 07/26/21 03:50 Anisocytosis 1+ 07/26/21 03:50 Microcytosis Not Reportable 07/26/21 03:50 Macrocytosis Not Reportable 07/26/21 03:50 Spherocytes Few 07/26/21 03:50 Pappenheimer Bodies Not Reportable 07/26/21 03:50 Sickle Cells Not Reportable 07/26/21 03:50 Target Cells Not Reportable 07/26/21 03:50 Tear Drop Cells Not Reportable 07/26/21 03:50 Ovalocytes Not Reportable 07/26/21 03:50 Helmet Cells Not Reportable 07/26/21 03:50 Longo-[place] Bodies Not Reportable 07/26/21 03:50 Neosho Rings Not Reportable 07/26/21 03:50 Shama Cells Not Reportable 07/26/21 03:50 Bite Cells Not Reportable 07/26/21 03:50 Crenated Cell Not Reportable 07/26/21 03:50 Elliptocytes Not Reportable 07/26/21 03:50 Acanthocytes (Spur) Not Reportable 07/26/21 03:50 Rouleaux Not Reportable 07/26/21 03:50 Hemoglobin C Crystals Not Reportable 07/26/21 03:50 Schistocytes Not Reportable 07/26/21 03:50 Malaria parasites Not Reportable 07/26/21 03:50 Shaheen Bodies Not Reportable 07/26/21 03:50 Hem Pathologist Commnt No 07/26/21 03:50 ABG pH 7.286 pH Units (7.350-7.450) L 07/26/21 12:34 ABG pCO2 67.3 mm Hg 07/26/21 12:34 ABG pO2 100.0 mm Hg (80.0-90.0) H 07/26/21 12:34 ABG HCO3 31.4 mmol/L (20.0-26.0) H 07/26/21 12:34 ABG O2 Saturation 97.1 % (95.0-99.0) 07/26/21 12:34 ABG O2 Content 15.9 (0.0-44) 07/26/21 12:34 ABG Base Excess 3.2 mmol/L (-2.0-3.0) H 07/26/21 12:34 ABG Hemoglobin 11.8 gm/dl (14.0-18.0) L 07/26/21 12:34 ABG Carboxyhemoglobin 1.2 % (0.0-5.0) 07/26/21 12:34 ABG Methemoglobin 0.6 % (0.0-1.5) 07/26/21 12:34 Oxyhemoglobin 95.4 % (95.0-99.0) 07/26/21 12:34 FiO2 50 % 07/26/21 12:34 Sodium 132 mmol/L (137-145) L 07/26/21 03:50 Potassium 5.6 mmol/L (3.6-5.0) H 07/26/21 07:44 Chloride 93.2 mmol/L (98-107) L 07/26/21 03:50 Carbon Dioxide 28 mmol/L (22-30) 07/26/21 03:50 Anion Gap 17 mmol/L 07/26/21 03:50 BUN 18 mg/dL (9-20) 07/26/21 03:50 Creatinine 1.1 mg/dL (0.8-1.3) 07/26/21 03:50 Estimated GFR > 60 ml/min 07/26/21 03:50 BUN/Creatinine Ratio 16 % 07/26/21 03:50 Glucose 171 mg/dL (75-100) H 07/26/21 03:50 POC Glucose 158 mg/dL (70-105) H 07/26/21 00:10 Hemoglobin A1c 5.9 % (4-6) 07/26/21 03:50 Lactic Acid 4.90 mmol/L (0.7-2.0) H* 07/25/21 Unknown Calcium 9.1 mg/dL (8.4-10.2) 07/26/21 03:50 Total Bilirubin 0.20 mg/dL (0.1-1.2) 07/26/21 03:50 AST 19 units/L (5-40) 07/26/21 03:50 ALT 11 units/L (7-56) 07/26/21 03:50 Alkaline Phosphatase 73 units/L (35-129) 07/26/21 03:50 Troponin T < 0.010 ng/mL (0.00-0.029) 07/25/21 Unknown Total Protein 8.2 g/dL (6.3-8.2) 07/26/21 03:50 Albumin 3.7 g/dL (3.9-5) L 07/26/21 03:50 Albumin/Globulin Ratio 0.8 % 07/26/21 03:50 Urine Color Yellow (Yellow) 07/25/21 11:19 Urine Turbidity Cloudy (Clear) 07/25/21 11:19 Urine pH 6.0 (5.0-7.0) 07/25/21 11:19 Ur Specific Kirby 1.015 (1.003-1.030) 07/25/21 11:19 Urine Protein >500 mg/dL (Negative) 07/25/21 11:19 Urine Glucose (UA) 150 mg/dL (Negative) 07/25/21 11:19 Urine Ketones Neg mg/dL (Negative) 07/25/21 11:19 Urine Blood Neg (Negative) 07/25/21 11:19 Urine Nitrite Neg (Negative) 07/25/21 11:19 Urine Bilirubin Neg (Negative) 07/25/21 11:19 Urine Urobilinogen < 2.0 mg/dL (<2.0) 07/25/21 11:19 Ur Leukocyte Esterase Neg (Negative) 07/25/21 11:19 Urine WBC (Auto) 26.0 /HPF (0.0-6.0) H 07/25/21 11:19 Urine RBC (Auto) 53.0 /HPF (0.0-6.0) 07/25/21 11:19 U Epithel Cells (Auto) 7.0 /HPF (0-13.0) 07/25/21 11:19 Urine Bacteria (Auto) 4+ /HPF (Negative) 07/25/21 11:19 Hyaline Casts 21 /LPF 07/25/21 11:19 Urine Mucus Few /HPF 07/25/21 11:19 Urine Yeast (Budding) 2+ /HPF 07/25/21 11:19 Urine Sperm 3+ /HPF (COOK ENCHILADA) 07/25/21 11:19 Microbiology: Microbiology 07/25/21 11:44 Peripheral/Venous Blood Culture - Preliminary NO GROWTH AFTER 24 HOURS 07/25/21 11:23 Peripheral/Venous Blood Culture - Preliminary NO GROWTH AFTER 24 HOURS 07/25/21 11:19 Urine,Clean Catch Urine Culture - Preliminary NO GROWTH AFTER 24 HOURS Good/IV: Voiding Method Condom Catheter Active Medications - Current Medications Current Medications: Generic Name Dose Route Start Last Admin Trade Name Freq PRN Reason Stop Dose Admin Acetaminophen 650 mg 07/25/21 16:00 Acetaminophen 325 Mg Tab PO Q4H PRN Pain MILD(1-3)/Fever >100.5/RAYO Acetylcysteine 200 mg 07/26/21 00:00 07/26/21 15:35 Acetylcysteine 20% 200 Mg/1 Ml *For Inhalation Use* INHALATION 07/28/21 16:01 200 mg Q8HRT BLANCA Administration Albuterol/Ipratropium 1 ampul 07/26/21 16:00 07/26/21 15:35 Ipratropium/Albuterol Sulfate 3 Ml Ampul.Neb IH 1 ampul Q8HRT BLANCA Administration Lipase/Protease/Amylase 1 each 07/26/21 14:56 Lipase 10,500/Protease 25,000/Amylase 43,750 (Units) Dr Cap FEEDTUBE PRN PRN For Clogged Feeding Tube Dextrose 50 ml 07/26/21 12:22 Dextrose 50% In Water (25gm) 50 Ml Syringe IV Q30MIN PRN Hypoglycemia Protocol Famotidine 20 mg 07/27/21 22:00 Famotidine 20 Mg Tab FEEDTUBE BID BLANCA Fentanyl 50 mcg 07/25/21 13:07 07/26/21 09:38 Fentanyl 100 Mcg/2 Ml Inj IV 50 mcg Q10MIN PRN Administration ANALGESIA Heparin Sodium (Porcine) 5,000 unit 07/25/21 16:00 07/26/21 10:00 Heparin 5,000 Unit/1 Ml Vial SUB-Q 5,000 unit Q12HR BLANCA Administration Fentanyl Citrate 2,000 mcg in 100 mls @ 5.67 mls/hr 07/25/21 13:30 07/26/21 03:00 Fentanyl Drip Premix IV 1 mcg/kg/hr TITR BLANCA 5.67 mls/hr Titration Protocol 1 MCG/KG/HR Cefepime HCl 2 gm in 100 mls @ 200 mls/hr 07/25/21 22:00 07/26/21 05:12 Cefepime/Ns 2 Gm/100 Ml IV 200 mls/hr Q8H BLANCA Administration Protocol Vancomycin HCl 2,000 mg/ 540 mls @ 250 mls/hr 07/26/21 12:00 07/26/21 13:00 Sodium Chloride IV 250 mls/hr Q12H BLANCA Administration Insulin Human Regular 0 units 07/26/21 12:00 07/26/21 13:10 Insulin Regular, Human 100 Units/1 Ml SUB-Q Not Given Q6HR [facility] Protocol Ondansetron HCl 4 mg 07/25/21 16:00 Ondansetron 4 Mg/2 Ml Inj IV Q8H PRN Nausea And Vomiting Senna/Docusate Sodium 1 tab 07/26/21 22:00 Sennosides/Docusate Sodium 8.6/50 Mg Tab PO QHS BLANCA Simple Syrup 15 ml 07/26/21 14:56 Simple Syrup 15 Ml FEEDTUBE PRN PRN Hypoglycemia Simple Syrup 30 ml 07/26/21 14:56 Simple Syrup 15 Ml FEEDTUBE PRN PRN Hypoglycemia Sodium Bicarbonate 325 mg 07/26/21 14:56 Sodium Bicarbonate 325 Mg Tab FEEDTUBE PRN PRN For Clogged Feeding Tube Sodium Chloride 10 ml 07/25/21 22:00 07/26/21 09:39 Sodium Chloride 0.9% 10 Ml Flush Syringe IV 10 ml BID BLANCA Administration Sodium Chloride 10 ml 07/25/21 16:00 07/26/21 00:08 Sodium Chloride 0.9% 10 Ml Flush Syringe IV 10 ml PRN PRN Administration LINE FLUSH Sodium Polystyrene Sulfonate 15 gm 07/26/21 13:00 07/26/21 13:08 Sodium Polystyrene 15 Gm/60 Ml Oral Liqd PO 07/26/21 16:00 15 gm ONCE@1300 BLANCA Administration Nutrition/Malnutrition Assess - Dietary Evaluation Nutrition/Malnutrition Findings: Nutrition Notes Start: 07/26/21 14:2 6 Freq: Status: Active Protocol: Document 07/26/21 14:26 BRYANNA (Rec: 07/26/21 15:00 BRYANNA [id number]) Nutrition Notes Need for Assessment generated from: MD Order Initial or Follow up Assessment Current Diagnosis Diabetes,Sepsis,Hypertension, Respiratory Failure Other Pertinent Diagnosis HCAP, CHF, Ischemic Cardiomyopathy, Dysphagia. Current Diet TF-Glucerna 1.2 Tyson @ 65 ml/hr (from D 07/26). Labs/Tests 07/26: Na 132.K 5.6, Cl 93.2, Glu 171. Pertinent Medications 07/26: Nutritionally unremarkable. 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 Weight Status Obese Subjective/Other Information RD consult for write/manage TF . Pt is permanently on NPO due to oropharyngeal Dysphagia and has a PEG tube placed poa, according to Progress notes. Pt is permanently on Mechanical Ventilation with Tracheostomy tube placed, O2 saturation @ 100%, according to Physical Assessment History and Progress notes. Pt lives on a SNF, according to Progress notes. Percent of energy/protein needs met: Prescribed TF-Glucerna 1.2 Tyson @ 65 ml/hr provides for energy/protein needs (1,885 Kcal/94 g) during LOS, 80% Kcal; 100% AA. Burn Absent Trauma Absent GI Symptoms None Difficulty In Swallowing Food Allergy No Skin Integrity/Comment Unspecified Area of Concern. Current % PO Other Minimum of two criteria No Fluid Accumulation N/A Reduced Pharmacy Analyst Strength N/A (non-severe) Protein-Calorie Malnutrition N\A #1 Nutrition Diagnosis Swallowing difficulty Etiology Oropharyngeal Dysphagia poa. As Evidenced by Signs and Symptoms Pt is permanently on NPO and has a PEG tube placed poa, according to Progress notes. Is patient on ventilator? Yes Is Patient Ambulatory and/or Out of Bed No REE-([facility]-confined to bed) 9580.068 Calculation Used for Recommendations [facility] Additional Notes Protein: 0.8-1 g/Kg AdjBW; 78- 97 g/day. Fluids: 1 ml/Kcal, or as per MD. Nutrition Intervention Nutrition Support: Start TF-Glucerna 1.2 Tyson @ 65 ml/hr. Flush: 180 ml water Q 4 hr, or as per MD. Kcal 1,885 Protein (gm) 94 Carbohydrates (gm) 180 Fat (gm) 94 Fluid (mL) 1,265 Fiber (gm) 25 % RDI: 80% Kcal; 100% AA. Goal #1 Provide at least 75% of energy /protein needs through Enteral Feeding during LOS. Goal #2 Maintain body weight within +/ -3% of admission body weight during LOS. Follow-Up By: 07/28/21 Additional Comments Start monitoring TF tolerance and BM. <RAFAEL DOMINGUEZ - Last Filed: 07/27/21 07:42> Assessment and Plan Assessment and plan: I saw and evaluated the patient. Discussed with the nurse practitioner and agree with their findings and plan as documented in this note.I saw and evaluated the patient. Discussed with the nurse practitioner and agree with their findings and plan as documented in this note. Hospitalist Physical - Constitutional Vitals: Temp Pulse Resp BP Pulse Ox 97.6 F 92 H 18 174/97 100 07/27/21 04:00 07/27/21 05:54 07/27/21 05:54 07/27/21 04:33 07/27/21 05:54 HEART Score - HEART Score Troponin: Troponin T < 0.010 ng/mL (0.00-0.029) 07/25/21 Unknown Results - Labs CBC & Chem 7: 07/27/21 04:54 07/27/21 04:54 Labs: Laboratory Last Values WBC 11.9 K/mm3 (4.5-11.0) H 07/27/21 04:54 RBC 4.08 M/mm3 (3.65-5.03) 07/27/21 04:54 Hgb 11.1 gm/dl (11.8-15.2) L 07/27/21 04:54 Hct 34.5 % (35.5-45.6) L 07/27/21 04:54 MCV 85 fl (84-94) 07/27/21 04:54 MCH 27 pg (28-32) L 07/27/21 04:54 MCHC 32 % (32-34) 07/27/21 04:54 RDW 15.5 % (13.2-15.2) H 07/27/21 04:54 Plt Count 301 K/mm3 (140-440) 07/27/21 04:54 Lymph # (Auto) Manager Data 07/25/21 Unknown Add Manual Diff Complete 07/26/21 03:50 Total Counted 100 07/26/21 03:50 Seg Neuts % (Manual) 96.0 % (40.0-70.0) H 07/26/21 03:50 Band Neutrophils % 0 % 07/26/21 03:50 Lymphocytes % (Manual) 3.0 % (13.4-35.0) L 07/26/21 03:50 Reactive Lymphs % (Man) 0 % 07/26/21 03:50 Monocytes % (Manual) 1.0 % (0.0-7.3) 07/26/21 03:50 Eosinophils % (Manual) 0 % (0.0-4.3) 07/26/21 03:50 Basophils % (Manual) 0 % (0.0-1.8) 07/26/21 03:50 Metamyelocytes % 0 % 07/26/21 03:50 Myelocytes % 0 % 07/26/21 03:50 Promyelocytes % 0 % 07/26/21 03:50 Blast Cells % 0 % 07/26/21 03:50 Nucleated RBC % Not Reportable 07/26/21 03:50 Seg Neutrophils # Man 14.9 K/mm3 (1.8-7.7) H 07/26/21 03:50 Band Neutrophils # 0.0 K/mm3 07/26/21 03:50 Lymphocytes # (Manual) 0.5 K/mm3 (1.2-5.4) L 07/26/21 03:50 Abs React Lymphs (Man) 0.0 K/mm3 07/26/21 03:50 Monocytes # (Manual) 0.2 K/mm3 (0.0-0.8) 07/26/21 03:50 Eosinophils # (Manual) 0.0 K/mm3 (0.0-0.4) 07/26/21 03:50 Basophils # (Manual) 0.0 K/mm3 (0.0-0.1) 07/26/21 03:50 Metamyelocytes # 0.0 K/mm3 07/26/21 03:50 Myelocytes # 0.0 K/mm3 07/26/21 03:50 Promyelocytes # 0.0 K/mm3 07/26/21 03:50 Blast Cells # 0.0 K/mm3 07/26/21 03:50 WBC Morphology Not Reportable 07/26/21 03:50 Hypersegmented Neuts Not Reportable 07/26/21 03:50 Hyposegmented Neuts Not Reportable 07/26/21 03:50 Hypogranular Neuts Not Reportable 07/26/21 03:50 Smudge Cells Not Reportable 07/26/21 03:50 Toxic Granulation Not Reportable 07/26/21 03:50 Toxic Vacuolation Not Reportable 07/26/21 03:50 Dohle Bodies Not Reportable 07/26/21 03:50 Pelger-Huet Anomaly Not Reportable 07/26/21 03:50 Mely Rods Not Reportable 07/26/21 03:50 Platelet Estimate Consistent w auto 07/26/21 03:50 Clumped Platelets Not Reportable 07/26/21 03:50 Plt Clumps, EDTA Not Reportable 07/26/21 03:50 Large Platelets Not Reportable 07/26/21 03:50 Giant Platelets Not Reportable 07/26/21 03:50 Platelet Satelliting Not Reportable 07/26/21 03:50 Plt Morphology Comment Not Reportable 07/26/21 03:50 RBC Morphology Not Reportable 07/26/21 03:50 Dimorphic RBCs Not Reportable 07/26/21 03:50 Polychromasia Not Reportable 07/26/21 03:50 Hypochromasia Not Reportable 07/26/21 03:50 Poikilocytosis Not Reportable 07/26/21 03:50 Anisocytosis 1+ 07/26/21 03:50 Microcytosis Not Reportable 07/26/21 03:50 Macrocytosis Not Reportable 07/26/21 03:50 Spherocytes Few 07/26/21 03:50 Pappenheimer Bodies Not Reportable 07/26/21 03:50 Sickle Cells Not Reportable 07/26/21 03:50 Target Cells Not Reportable 07/26/21 03:50 Tear Drop Cells Not Reportable 07/26/21 03:50 Ovalocytes Not Reportable 07/26/21 03:50 Helmet Cells Not Reportable 07/26/21 03:50 Longo-[place] Bodies Not Reportable 07/26/21 03:50 [place] Rings Not Reportable 07/26/21 03:50 Shama Cells Not Reportable 07/26/21 03:50 Bite Cells Not Reportable 07/26/21 03:50 Crenated Cell Not Reportable 07/26/21 03:50 Elliptocytes Not Reportable 07/26/21 03:50 Acanthocytes (Spur) Not Reportable 07/26/21 03:50 Rouleaux Not Reportable 07/26/21 03:50 Hemoglobin C Crystals Not Reportable 07/26/21 03:50 Schistocytes Not Reportable 07/26/21 03:50 Malaria parasites Not Reportable 07/26/21 03:50 Shaheen Bodies Not Reportable 07/26/21 03:50 Hem Pathologist Commnt No 07/26/21 03:50 ABG pH 7.286 pH Units (7.350-7.450) L 07/26/21 12:34 ABG pCO2 67.3 mm Hg 07/26/21 12:34 ABG pO2 100.0 mm Hg (80.0-90.0) H 07/26/21 12:34 ABG HCO3 31.4 mmol/L (20.0-26.0) H 07/26/21 12:34 ABG O2 Saturation 97.1 % (95.0-99.0) 07/26/21 12:34 ABG O2 Content 15.9 (0.0-44) 07/26/21 12:34 ABG Base Excess 3.2 mmol/L (-2.0-3.0) H 07/26/21 12:34 ABG Hemoglobin 11.8 gm/dl (14.0-18.0) L 07/26/21 12:34 ABG Carboxyhemoglobin 1.2 % (0.0-5.0) 07/26/21 12:34 ABG Methemoglobin 0.6 % (0.0-1.5) 07/26/21 12:34 Oxyhemoglobin 95.4 % (95.0-99.0) 07/26/21 12:34 FiO2 50 % 07/26/21 12:34 Sodium 136 mmol/L (137-145) L 07/27/21 04:54 Potassium 4.7 mmol/L (3.6-5.0) 07/27/21 04:54 Chloride 98.0 mmol/L (98-107) 07/27/21 04:54 Carbon Dioxide 28 mmol/L (22-30) 07/27/21 04:54 Anion Gap 15 mmol/L 07/27/21 04:54 BUN 37 mg/dL (9-20) H 07/27/21 04:54 Creatinine 2.2 mg/dL (0.8-1.3) H D 07/27/21 04:54 Estimated GFR 30 ml/min 07/27/21 04:54 BUN/Creatinine Ratio 17 % 07/27/21 04:54 Glucose 97 mg/dL (75-100) 07/27/21 04:54 POC Glucose 100 mg/dL (70-105) 07/26/21 13:00 Hemoglobin A1c 5.9 % (4-6) 07/26/21 03:50 Lactic Acid 4.90 mmol/L (0.7-2.0) H* 07/25/21 Unknown Calcium 9.3 mg/dL (8.4-10.2) 07/27/21 04:54 Total Bilirubin 0.20 mg/dL (0.1-1.2) 07/26/21 03:50 AST 19 units/L (5-40) 07/26/21 03:50 ALT 11 units/L (7-56) 07/26/21 03:50 Alkaline Phosphatase 73 units/L (35-129) 07/26/21 03:50 Troponin T < 0.010 ng/mL (0.00-0.029) 07/25/21 Unknown Total Protein 8.2 g/dL (6.3-8.2) 07/26/21 03:50 Albumin 3.7 g/dL (3.9-5) L 07/26/21 03:50 Albumin/Globulin Ratio 0.8 % 07/26/21 03:50 Urine Color Yellow (Yellow) 07/25/21 11:19 Urine Turbidity Cloudy (Clear) 07/25/21 11:19 Urine pH 6.0 (5.0-7.0) 07/25/21 11:19 Ur Specific Kirby 1.015 (1.003-1.030) 07/25/21 11:19 Urine Protein >500 mg/dL (Negative) 07/25/21 11:19 Urine Glucose (UA) 150 mg/dL (Negative) 07/25/21 11:19 Urine Ketones Neg mg/dL (Negative) 07/25/21 11:19 Urine Blood Neg (Negative) 07/25/21 11:19 Urine Nitrite Neg (Negative) 07/25/21 11:19 Urine Bilirubin Neg (Negative) 07/25/21 11:19 Urine Urobilinogen < 2.0 mg/dL (<2.0) 07/25/21 11:19 Ur Leukocyte Esterase Neg (Negative) 07/25/21 11:19 Urine WBC (Auto) 26.0 /HPF (0.0-6.0) H 07/25/21 11:19 Urine RBC (Auto) 53.0 /HPF (0.0-6.0) 07/25/21 11:19 U Epithel Cells (Auto) 7.0 /HPF (0-13.0) 07/25/21 11:19 Urine Bacteria (Auto) 4+ /HPF (Negative) 07/25/21 11:19 Hyaline Casts 21 /LPF 07/25/21 11:19 Urine Mucus Few /HPF 07/25/21 11:19 Urine Yeast (Budding) 2+ /HPF 07/25/21 11:19 Urine Sperm 3+ /HPF (COOK ENCHILADA) 07/25/21 11:19 Microbiology: Microbiology 07/25/21 11:44 Peripheral/Venous Blood Culture - Preliminary NO GROWTH AFTER 24 HOURS 07/25/21 11:23 Peripheral/Venous Blood Culture - Preliminary NO GROWTH AFTER 24 HOURS 07/25/21 11:19 Urine,Clean Catch Urine Culture - Preliminary NO GROWTH AFTER 24 HOURS Good/IV: Voiding Method Condom Catheter Active Medications - Current Medications Current Medications: Generic Name Dose Route Start Last Admin Trade Name Freq PRN Reason Stop Dose Admin Acetaminophen 650 mg 07/25/21 16:00 Acetaminophen 325 Mg Tab PO Q4H PRN Pain MILD(1-3)/Fever >100.5/RAYO Acetylcysteine 200 mg 07/26/21 00:00 07/26/21 23:23 Acetylcysteine 20% 200 Mg/1 Ml *For Inhalation Use* INHALATION 07/28/21 16:01 200 mg Q8HRT BLANCA Administration Albuterol/Ipratropium 1 ampul 07/26/21 16:00 07/26/21 23:23 Ipratropium/Albuterol Sulfate 3 Ml Ampul.Neb IH 1 ampul Q8HRT BLANCA Administration Lipase/Protease/Amylase 1 each 07/26/21 14:56 Lipase 10,500/Protease 25,000/Amylase 43,750 (Units) Dr Zambrano FEEDTUBE PRN PRN For Clogged Feeding Tube Dextrose 50 ml 07/26/21 12:22 Dextrose 50% In Water (25gm) 50 Ml Syringe IV Q30MIN PRN Hypoglycemia Protocol Famotidine 20 mg 07/27/21 22:00 Famotidine 20 Mg Tab FEEDTUBE BID BLANCA Fentanyl 50 mcg 07/25/21 13:07 07/26/21 09:38 Fentanyl 100 Mcg/2 Ml Inj IV 50 mcg Q10MIN PRN Administration ANALGESIA Heparin Sodium (Porcine) 5,000 unit 07/25/21 16:00 07/26/21 21:58 Heparin 5,000 Unit/1 Ml Vial SUB-Q 5,000 unit Q12HR BLANCA Administration Hydralazine HCl 20 mg 07/27/21 06:00 07/27/21 04:33 Hydralazine 20 Mg/1 Ml Inj IV 20 mg Q6H PRN Administration Blood Pressure Fentanyl Citrate 2,000 mcg in 100 mls @ 5.67 mls/hr 07/25/21 13:30 07/26/21 21:58 Fentanyl Drip Premix IV 1 mcg/kg/hr TITR BLANCA 5.67 mls/hr Administration Protocol 1 MCG/KG/HR Cefepime HCl 2 gm in 100 mls @ 200 mls/hr 07/25/21 22:00 07/27/21 06:18 Cefepime/Ns 2 Gm/100 Ml IV 200 mls/hr Q8H [facility] Administration Protocol Vancomycin HCl 2,000 mg/ 540 mls @ 250 mls/hr 07/26/21 12:00 07/27/21 00:00 Sodium Chloride IV 250 mls/hr Q12H [facility] Administration Insulin Human Regular 0 units 07/26/21 12:00 07/27/21 06:18 Insulin Regular, Human 100 Units/1 Ml SUB-Q Not Given Q6HR [facility] Protocol Ondansetron HCl 4 mg 07/25/21 16:00 Ondansetron 4 Mg/2 Ml Inj IV Q8H PRN Nausea And Vomiting Polyethylene Glycol 17 gm 07/26/21 17:04 Polyethylene Glycol 3350 17 Gm Powder PO QDAY PRN Constipation Senna/Docusate Sodium 1 tab 07/26/21 22:00 07/26/21 23:59 Sennosides/Docusate Sodium 8.6/50 Mg Tab PO 1 tab QHS BLANCA Administration Simple Syrup 15 ml 07/26/21 14:56 Simple Syrup 15 Ml FEEDTUBE PRN PRN Hypoglycemia Simple Syrup 30 ml 07/26/21 14:56 Simple Syrup 15 Ml FEEDTUBE PRN PRN Hypoglycemia Sodium Bicarbonate 325 mg 07/26/21 14:56 Sodium Bicarbonate 325 Mg Tab FEEDTUBE PRN PRN For Clogged Feeding Tube Sodium Chloride 10 ml 07/25/21 22:00 07/26/21 23:59 Sodium Chloride 0.9% 10 Ml Flush Syringe IV 10 ml BID BLANCA Administration Sodium Chloride 10 ml 07/25/21 16:00 07/26/21 00:08 Sodium Chloride 0.9% 10 Ml Flush Syringe IV 10 ml PRN PRN Administration LINE FLUSH Nutrition/Malnutrition Assess - Dietary Evaluation Nutrition/Malnutrition Findings: Nutrition Notes Start: 07/26/21 14:26 Freq: Status: Active Protocol: Document 07/26/21 14:26 BRYANNA (Rec: 07/26/21 15:00 BRYANNA [id number]) Nutrition Notes Need for Assessment generated from: MD Order Initial or Follow up Assessment Current Diagnosis Diabetes,Sepsis,Hypertension, Respiratory Failure Other Pertinent Diagnosis HCAP, CHF, Ischemic Cardiomyopathy, Dysphagia. Current Diet TF-Glucerna 1.2 Tyson @ 65 ml/hr (from D 07/26). Labs/Tests 07/26: Na 132.K 5.6, Cl 93.2, Glu 171. Pertinent Medications 07/26: Nutritionally unremarkable. 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 Weight Status Obese Subjective/Other Information RD consult for write/manage TF . Pt is permanently on NPO due to oropharyngeal Dysphagia and has a PEG tube placed poa, according to Progress notes. Pt is permanently on Mechanical Ventilation with Tracheostomy tube placed, O2 saturation @ 100%, according to Physical Assessment History and Progress notes. Pt lives on a SNF, according to Progress notes. Percent of energy/protein needs met: Prescribed TF-Glucerna 1.2 Tyson @ 65 ml/hr provides for energy/protein needs (1,885 Kcal/94 g) during LOS, 80% Kcal; 100% AA. Burn Absent Trauma Absent GI Symptoms None Difficulty In Swallowing Food Allergy No Skin Integrity/Comment Unspecified Area of Concern. Current % PO Other Minimum of two criteria No Fluid Accumulation N/A Reduced Pharmacy Analyst Strength N/A (non-severe) Protein-Calorie Malnutrition N\A #1 Nutrition Diagnosis Swallowing difficulty Etiology Oropharyngeal Dysphagia poa. As Evidenced by Signs and Symptoms Pt is permanently on NPO and has a PEG tube placed poa, according to Progress notes. Is patient on ventilator? Yes Is Patient Ambulatory and/or Out of Bed No REE-([facility]-confined to bed) [phone] Calculation Used for Recommendations [facility] Additional Notes Protein: 0.8-1 g/Kg AdjBW; 78- 97 g/day. Fluids: 1 ml/Kcal, or as per MD. Nutrition Intervention Nutrition Support: Start TF-Glucerna 1.2 Tyson @ 65 ml/hr. Flush: 180 ml water Q 4 hr, or as per MD. Kcal 1,885 Protein (gm) 94 Carbohydrates (gm) 180 Fat (gm) 94 Fluid (mL) 1,265 Fiber (gm) 25 % RDI: 80% Kcal; 100% AA. Goal #1 Provide at least 75% of energy /protein needs through Enteral Feeding during LOS. Goal #2 Maintain body weight within +/ -3% of admission body weight during LOS. Follow-Up By: 07/28/21 Additional Comments Start monitoring TF tolerance and BM.
[2021-07-26] MEDS ORDERED: POLYETHYLENE GLYCOL 3350 17 GM POWDER PO PRN (17:04)
[2021-07-26] MEDS: SENNOSIDES/DOCUSATE SODIUM 8.6/50 MG TAB PO SCH (23:59)
[2021-07-27] MEDS: VANCOMYCIN 2,000 MG in SODIUM CHLORIDE 0.9% 500 ML 500 ML IV SCH
[2021-07-27] MEDS: INSULIN REGULAR, HUMAN 100 UNITS/1 ML SUB-Q SCH ×3 (00:04→21:04)
[2021-07-27] MEDS: hydrALAZINE 20 MG/1 ML INJ IV PRN ×2 (04:33→18:09)
[2021-07-27 05:27] LABS: Hematocrit 34.5 % (35.5-45.6); Hemoglobin 11.1 gm/dl (11.8-15.2); Mean Corpuscular HGB Conc 32 % (32-34); Mean Corpuscular Volume 85 fl (84-94); Platelet Count 301 K/mm3 (140-440); Red Blood Count 4.08 M/mm3 (3.65-5.03); Red Cell Distribution Width 15.5 % (13.2-15.2)
[2021-07-27 05:44] LABS: Calcium 9.3 mg/dL (8.4-10.2)
[2021-07-27] MEDS: CEFEPIME/NS 2 GM/100 ML 2 GM/100 ML BAG IV SCH ×2 (06:18→18:09)
[2021-07-27] MEDS: IPRATROPIUM/ALBUTEROL SULFATE 3 ML AMPUL.NEB IH SCH ×2 (08:47→17:00)
[2021-07-27] MEDS: ACETYLCYSTEINE 20% 200 MG/1 ML *FOR INHALATION USE INHALATION SCH ×2 (08:47→17:00)
[2021-07-27] MEDS: HEPARIN 5,000 UNIT/1 ML VIAL SUB-Q SCH ×2 (10:28→22:00)
[2021-07-27] MEDS: FAMOTIDINE 10 MG TAB FEEDTUBE SCH ×2 (10:28→22:00)
[2021-07-27 10:50] LABS: ABG Base Excess 3.9 mmol/L (-2.0-3.0); ABG HCO3 30.2 mmol/L (20.0-26.0); ABG Methemoglobin 0.6 % (0.0-1.5); ABG Oxygen Saturation 96.6 % (95.0-99.0); ABG PCO2 53.4 mm Hg; ABG PH 7.37 pH Units (7.350-7.450); ABG PO2 76.9 mm Hg (80.0-90.0)
[2021-07-27] MEDS ORDERED: amLODIPine 10 MG TAB FEEDTUBE SCH (13:00)
--- NOTE | 2021-07-27 13:32 | Progress Note ---
Assessment and Plan Acute and chronic hypoxemic and hypercapnic Respiratory Failure 2/2 HCAP on MVS HCAP AE-CHF exacerbation s/p Tracheostomy Oropharyngeal dysphagia s/p PEG h/o Ischemic cardiomyopathy - get urine lytes for FENA - get nephrology evaluation - get ID consult - stop Vancomycin for now re: MONIK - zyvox if ID decides to treat for MRSA empirically - send tracheal aspirate - continue care as below otherwise; - continue current PCV with inspiratory presure of 30 cm H2O for now - repeat ABG in am - continue Daily SAT and SBT assessment as tolerated - continue to wean supplemental oxygen for target O2 sat's > 90% acutely - VAP bundle addressed - continue lung protective strategies - continue bronchodilators with pulmonary hygiene per RT - wean per pulmonary driven protocols otherwise - continue accuchecks with glycemic control per SSI (While critically ill target blood glucose of 140-180 mg/dL; avoid hypoglycemia) - sedation prn for target RASS 0 to -1 - avoid nephrotoxins, renally dose all medications - continue to avoid benzodiazepine's, reduce the possibility of delirium - AB's per ID rec's - prn analgesia per CPOT score - Maintenance of sleep-wake cycle, avoid delirium - continue enteral nutritional support at goal rate as tolerated - G.I. & VTE prophylaxis - PT/OT/ROM exercises - continue mobility protocols for pressure ulcer prophylaxis - Monitor hemodynamics closely - continue other care per attending / other consultants - discharge planning ongoing concurrently COVID SPECIFIC INTERVENTIONS - test pending .... Re-evaluate in am & prn CONDITION: CRITICAL PROGNOSIS: GUARDED CODE STATUS: FULL CODE The high probability of a clinically significant, sudden or life-threatening deterioration of the [respiratory, cardiovascular & neurologic] system(s) required my full and direct attention, intervention and personal management. The aggregate critical care time was [36] minutes without overlap. Time includes spent on; [x] Data Review and interpretation [x] Patient assessment and monitoring of vital signs [x] Documentation [x] Medication orders and management Subjective Date of service: 07/27/21 Principal diagnosis: Ac and ch hypoxemic and hypercapnic Resp Failure; HCAP; AE- CHF; s/p Trach Interval history: Patient is seen today for: Acute and chronic hypoxemic and hypercapnic Respiratory Failure; HCAP; AE-CHF; s/p Tracheostomy; H/O Ischemic cardiomyopathy Seen and examined at bedside; 24hour events reviewed; nursing and respiratory care staff consulted; no adverse overnight events reported to me; resting peacefully in bed; remains on MVS; now with MONIK; ABG now compensated; denies N/V/F/C; MRSA nasal screen was positive; awaiting COVID-19 PCR result Objective Vital Signs - 12hr 07/27/21 07/27/21 07/27/21 02:00 04:00 04:26 Temperature 97.6 F Pulse Rate 89 Pulse Rate [ Bilateral] Pulse Rate [ 92 H 92 H Left Dorsalis Pedis] Pulse Rate [ 92 H 92 H Left Radial] Pulse Rate [ 92 H 92 H Right Dorsalis Pedis] Pulse Rate [ 92 H 92 H Right Radial] Respiratory 18 18 Rate Respiratory Rate [Bilateral ] Blood Pressure 178/97 O2 Sat by Pulse 100 100 97 Oximetry O2 Sat by Pulse Oximetry [ Assessment] 07/27/21 07/27/21 07/27/21 04:33 04:36 05:54 Temperature Pulse Rate 100 H Pulse Rate [ Bilateral] Pulse Rate [ 92 H Left Dorsalis Pedis] Pulse Rate [ 92 H Left Radial] Pulse Rate [ 92 H Right Dorsalis Pedis] Pulse Rate [ 92 H Right Radial] Respiratory 18 Rate Respiratory Rate [Bilateral ] Blood Pressure 174/97 O2 Sat by Pulse 100 Oximetry O2 Sat by Pulse 98 Oximetry [ Assessment] 07/27/21 07/27/21 07/27/21 08:15 08:40 08:45 Temperature Pulse Rate 110 H Pulse Rate [ 89 Bilateral] Pulse Rate [ Left Dorsalis Pedis] Pulse Rate [ Left Radial] Pulse Rate [ Right Dorsalis Pedis] Pulse Rate [ Right Radial] Respiratory Rate Respiratory 30 H Rate [Bilateral ] Blood Pressure O2 Sat by Pulse 100 95 Oximetry O2 Sat by Pulse Oximetry [ Assessment] 07/27/21 12:40 Temperature Pulse Rate 89 Pulse Rate [ Bilateral] Pulse Rate [ Left Dorsalis Pedis] Pulse Rate [ Left Radial] Pulse Rate [ Right Dorsalis Pedis] Pulse Rate [ Right Radial] Respiratory Rate Respiratory Rate [Bilateral ] Blood Pressure 146/73 O2 Sat by Pulse 98 Oximetry O2 Sat by Pulse Oximetry [ Assessment] Constitutional: other (atraumatic, normocephalic, trach to vent with mild ventilator dyssynchrony) Eyes: non-icteric ENT: oropharynx moist, other (midline tracheostomy) Neck: supple, no lymphadenopathy, no JVD Effort: mildly labored Ascultation: Bilateral: diminished breath sounds, wheezes, rhonchi Percussion: Bilateral: not dull Cardiovascular: regular rate and rhythm, other (S1,S2) Gastrointestinal: normoactive bowel sounds, soft, non-tender, other (PEG) Integumentary: normal Extremities: no cyanosis, pulses normal, no ischemia or petechiae, edema Neurologic: pupils equal and round, other (moves all extremities) Psychiatric: mood appropriate, affect normal CBC and BMP: 07/28/21 04:32 07/28/21 04:32 ABG, PT/INR, D-dimer: ABG ABG pH 7.370 pH Units (7.350-7.450) 07/27/21 10:30 ABG pCO2 53.4 mm Hg 07/27/21 10:30 ABG pO2 76.9 mm Hg (80.0-90.0) L 07/27/21 10:30 ABG O2 Saturation 96.6 % (95.0-99.0) 07/27/21 10:30 Abnormal lab findings: Abnormal Labs 07/25/21 07/25/21 07/25/21 11:19 21:50 Unknown WBC 18.1 H Hgb Hct MCH RDW 16.2 H Seg Neuts % (Manual) Lymphocytes % (Manual) Seg Neutrophils # Man 12.1 H Lymphocytes # (Manual) ABG pH 6.917 L* ABG pO2 331.8 H ABG HCO3 39.3 H ABG O2 Saturation 99.4 H ABG Base Excess ABG Hemoglobin 12.1 L Oxyhemoglobin Sodium Potassium Chloride BUN Creatinine Glucose POC Glucose Lactic Acid Albumin Urine WBC (Auto) 26.0 H 07/25/21 07/25/21 07/25/21 Unknown Unknown Unknown WBC Hgb Hct MCH RDW Seg Neuts % (Manual) Lymphocytes % (Manual) Seg Neutrophils # Man Lymphocytes # (Manual) ABG pH 7.029 L* ABG pO2 97.5 H ABG HCO3 37.2 H ABG O2 Saturation 93.5 L ABG Base Excess ABG Hemoglobin 12.7 L Oxyhemoglobin 91.7 L Sodium 129 L Potassium Chloride 90.1 L BUN 8 L Creatinine Glucose 258 H POC Glucose Lactic Acid 4.90 H* Albumin 3.8 L Urine WBC (Auto) 07/25/21 07/26/21 07/26/21 Unknown 00:10 03:50 WBC 15.5 H Hgb Hct MCH RDW 15.4 H Seg Neuts % (Manual) 96.0 H Lymphocytes % (Manual) 3.0 L Seg Neutrophils # Man 14.9 H Lymphocytes # (Manual) 0.5 L ABG pH 7.217 L ABG pO2 162.9 H ABG HCO3 34.3 H ABG O2 Saturation ABG Base Excess 4.0 H ABG Hemoglobin 12.5 L Oxyhemoglobin Sodium Potassium Chloride BUN Creatinine Glucose POC Glucose 158 H Lactic Acid Albumin Urine WBC (Auto) 07/26/21 07/26/21 07/26/21 03:50 04:30 07:44 WBC Hgb Hct MCH RDW Seg Neuts % (Manual) Lymphocytes % (Manual) Seg Neutrophils # Man Lymphocytes # (Manual) ABG pH 7.170 L* ABG pO2 65.5 L ABG HCO3 33.9 H ABG O2 Saturation ABG Base Excess ABG Hemoglobin 12.0 L Oxyhemoglobin 93.5 L Sodium 132 L Potassium 6.0 H D 5.6 H Chloride 93.2 L BUN Creatinine Glucose 171 H POC Glucose Lactic Acid Albumin 3.7 L Urine WBC (Auto) 07/26/21 07/26/21 07/27/21 12:34 17:18 04:54 WBC 11.9 H Hgb 11.1 L Hct 34.5 L MCH 27 L RDW 15.5 H Seg Neuts % (Manual) Lymphocytes % (Manual) Seg Neutrophils # Man Lymphocytes # (Manual) ABG pH 7.286 L ABG pO2 100.0 H ABG HCO3 31.4 H ABG O2 Saturation ABG Base Excess 3.2 H ABG Hemoglobin 11.8 L Oxyhemoglobin Sodium Potassium Chloride BUN Creatinine Glucose POC Glucose 111 H Lactic Acid Albumin Urine WBC (Auto) 07/27/21 07/27/21 04:54 10:30 WBC Hgb Hct MCH RDW Seg Neuts % (Manual) Lymphocytes % (Manual) Seg Neutrophils # Man Lymphocytes # (Manual) ABG pH ABG pO2 76.9 L ABG HCO3 30.2 H ABG O2 Saturation ABG Base Excess 3.9 H ABG Hemoglobin 11.2 L Oxyhemoglobin Sodium 136 L Potassium Chloride BUN 37 H Creatinine 2.2 H D Glucose POC Glucose Lactic Acid Albumin Urine WBC (Auto) Allied health notes reviewed: nursing
--- NOTE | 2021-07-27 16:19 | Consultation ---
History of Present Illness - Reason for Consult Consult date: 07/27/21 acute renal failure Requesting physician: JENNA MCCALL - History of Present Illness 61-year-old obese male who is s/p trach and ventilator dependent, documented history of type 2 diabetes mellitus, ischemic cardiomyopathy, chronically bedbound, brought in from [facility] for severe respiratory distress. Renal consult is requested for serum creatinine of 2.2. His serum creatinine was 0.8-day before yesterday and 1.1 yesterday. Now it has gone up to 2.2 and therefore this consultation Patient is currently in the ICU on the ventilator via tracheostomy. On T-piece with 30% FiO2. Patient has a condom catheter in place. Past History Past Medical History: diabetes, hypertension, other (Cardiomyopathy) Past Surgical History: Other (Tracheostomy and PEG tube placement) Social history: other (Not known) Family history: other (Not known) Medications and Allergies Allergies Allergy/AdvReac Type Severity Reaction Status Date / Time No Known Allergies Allergy Verified 07/25/21 11:02 Home Medications Medication Instructions Recorded Confirmed Last Taken Type No Known Home Medications [No 03/11/21 03/11/21 Unknown History Reported Home Medications] Apixaban [Eliquis] 5 mg FEEDTUBE Q12HR 30 Days #60 05/02/21 Unknown Rx tablet Doxazosin [Cardura] 1 mg FEEDTUBE BID 30 Days #60 05/02/21 Unknown Rx tablet Famotidine [Pepcid] 20 mg FEEDTUBE BID 30 Days #60 05/02/21 Unknown Rx tablet Glycopyrrolate 2 mg PO TID 30 Days #90 tablet 05/02/21 Unknown Rx Insulin Glargine [Lantus VIAL] 18 units SUB-Q QHS 30 Days #2 vial 05/02/21 Unknown Rx Metoprolol [Lopressor TAB] 12.5 mg FEEDTUBE BID 30 Days #60 05/02/21 Unknown Rx tablet amLODIPine 10 mg FEEDTUBE DAILY 30 Days #30 05/02/21 Unknown Rx tablet cephALEXin [Keflex] 500 mg PO Q8HR 2 Days #6 cap 05/02/21 Unknown Rx hydrALAZINE [Apresoline TAB] 50 mg FEEDTUBE Q8HR 30 Days #90 05/02/21 Unknown Rx tablet Active Meds: Active Medications Acetaminophen (Acetaminophen 325 Mg Tab) 650 mg PO Q4H PRN PRN Reason: Pain MILD(1-3)/Fever >100.5/RAYO Acetylcysteine (Acetylcysteine 20% 200 Mg/1 Ml *For Inhalation Use*) 200 mg INHALATION Q8HRT [facility] Stop: 07/28/21 16:01 Last Admin: 07/27/21 08:47 Dose: 200 mg Albuterol/Ipratropium (Ipratropium/Albuterol Sulfate 3 Ml Ampul.Neb) 1 ampul IH Q8HRT [facility] Last Admin: 07/27/21 08:47 Dose: 1 ampul Lipase/Protease/Amylase (Lipase 10,500/Protease 25,000/Amylase 43,750 (Units) Dr Zambrano) 1 each FEEDTUBE PRN PRN PRN Reason: For Clogged Feeding Tube Dextrose (Dextrose 50% In Water (25gm) 50 Ml Syringe) 50 ml IV Q30MIN PRN; Protocol PRN Reason: Hypoglycemia Famotidine (Famotidine 10 Mg Tab) 10 mg FEEDTUBE BID [facility] Last Admin: 07/27/21 10:28 Dose: 10 mg Heparin Sodium (Porcine) (Heparin 5,000 Unit/1 Ml Vial) 5,000 unit SUB-Q Q12HR [facility] Last Admin: 07/27/21 10:28 Dose: 5,000 unit Hydralazine HCl (Hydralazine 20 Mg/1 Ml Inj) 20 mg IV Q6H PRN PRN Reason: Blood Pressure Last Admin: 07/27/21 04:33 Dose: 20 mg Cefepime HCl (Cefepime/Ns 2 Gm/100 Ml) 2 gm in 100 mls @ 200 mls/hr IV Q12H [facility]; Protocol Insulin Human Regular (Insulin Regular, Human 100 Units/1 Ml) 0 units SUB-Q Q6HR [facility]AN[facility]; Protocol Last Admin: 07/27/21 06:18 Dose: Not Given Ondansetron HCl (Ondansetron 4 Mg/2 Ml Inj) 4 mg IV Q8H PRN PRN Reason: Nausea And Vomiting Oxycodone/Acetaminophen (Oxycodone /Acetaminophen 5-325mg Tab) 1 tab PO Q6H PRN PRN Reason: Pain, Moderate (4-6) Polyethylene Glycol (Polyethylene Glycol 3350 17 Gm Powder) 17 gm PO QDAY PRN PRN Reason: Constipation Senna/Docusate Sodium (Sennosides/Docusate Sodium 8.6/50 Mg Tab) 1 tab PO QHS [facility] Last Admin: 07/26/21 23:59 Dose: 1 tab Simple Syrup (Simple Syrup 15 Ml) 15 ml FEEDTUBE PRN PRN PRN Reason: Hypoglycemia Simple Syrup (Simple Syrup 15 Ml) 30 ml FEEDTUBE PRN PRN PRN Reason: Hypoglycemia Sodium Bicarbonate (Sodium Bicarbonate 325 Mg Tab) 325 mg FEEDTUBE PRN PRN PRN Reason: For Clogged Feeding Tube Sodium Chloride (Sodium Chloride 0.9% 10 Ml Flush Syringe) 10 ml IV BID [facility] Last Admin: 07/26/21 23:59 Dose: 10 ml Sodium Chloride (Sodium Chloride 0.9% 10 Ml Flush Syringe) 10 ml IV PRN PRN PRN Reason: LINE FLUSH Last Admin: 07/26/21 00:08 Dose: 10 ml Exam - Vital Signs Vital signs: Vital Signs Pulse Resp Pulse Ox 94 H 19 100 07/25/21 10:38 07/25/21 10:38 07/25/21 10:38 - General Appearance General appearance: well-developed, well-nourished, appears stated age EENT: PERRL, mucous membranes moist Neck: Present: Other (Patient has a tracheostomy tube in place. Connected to the ventilator) Respiratory: Ronchi (Few scattered rhonchi) Heart: regular, normal heart rate, S1S2, no murmurs Gastrointestinal: Present: normal, normoactive bowel sounds, other (PEG tube in place) Integumentary: other (1+ edema) Results - Lab Results 07/27/21 04:54 07/27/21 04:54 Most recent lab results ABG pH 7.370 pH Units (7.350-7.450) 07/27/21 10:30 ABG pCO2 53.4 mm Hg 07/27/21 10:30 ABG pO2 76.9 mm Hg (80.0-90.0) L 07/27/21 10:30 ABG HCO3 30.2 mmol/L (20.0-26.0) H 07/27/21 10:30 ABG O2 Saturation 96.6 % (95.0-99.0) 07/27/21 10:30 Calcium 9.3 mg/dL (8.4-10.2) 07/27/21 04:54 Assessment and Plan Impression * Acute kidney injury * Respiratory failure * Hypertension * Diabetes * Proteinuria * Cardiomyopathy Recommendations * Patient had a serum creatinine of 0.8 on admission. Etiology of acute kidney injury unclear at this time. * Patient clinically does appear to be volume overloaded. Continue diuretics as needed * His urine shows 4+ dipstick protein with associated microhematuria as well as pyuria . patient does have pulmonary infiltrates. Need to rule out pulmonary renal syndrome * Need to rule out an obstructive component as well. Patient does have a condom catheter in place. Shall check a bladder scan. * He may have some degree of underlying diabetic nephropathy * Avoid nephrotoxins * Broad-spectrum antibiotic as per ICU team * Monitor fluid status and electrolytes closely * Patient is currently nonoliguric. No urgent indication for dialysis today * Thank you very much for the consultation. Shall follow along with you
--- NOTE | 2021-07-27 16:23 | Consultation ---
History of Present Illness - Reason for Consult Consult date: 07/27/21 - History of Present Illness 61-year-old man past medical history diabetes, hypertension known to me from previous admissions where he was inpatient for COVID-19 and subsequent MSSA superadded bacterial pneumonia. He was eventually given 14 days of high-dose cefazolin. He is now admitted with respiratory distress from [place]. He is trach and ventilator dependent. No other history is available. Afebrile since admission, tachycardic. White count 18.1. Cultures no growth so far. Imaging personally reviewed: Chest x-ray: Interval improvement in his bilateral airspace disease still present. Past History Past Medical History: other (See HPI) Past Surgical History: Other (Trach) Social history: denies: smoking Family history: diabetes Medications and Allergies Allergies Allergy/AdvReac Type Severity Reaction Status Date / Time No Known Allergies Allergy Verified 07/25/21 11:02 Home Medications Medication Instructions Recorded Confirmed Last Taken Type No Known Home Medications [No 03/11/21 03/11/21 Unknown History Reported Home Medications] Apixaban [Eliquis] 5 mg FEEDTUBE Q12HR 30 Days #60 05/02/21 Unknown Rx tablet Doxazosin [Cardura] 1 mg FEEDTUBE BID 30 Days #60 05/02/21 Unknown Rx tablet Famotidine [Pepcid] 20 mg FEEDTUBE BID 30 Days #60 05/02/21 Unknown Rx tablet Glycopyrrolate 2 mg PO TID 30 Days #90 tablet 05/02/21 Unknown Rx Insulin Glargine [Lantus VIAL] 18 units SUB-Q QHS 30 Days #2 vial 05/02/21 Unknown Rx Metoprolol [Lopressor TAB] 12.5 mg FEEDTUBE BID 30 Days #60 05/02/21 Unknown Rx tablet amLODIPine 10 mg FEEDTUBE DAILY 30 Days #30 05/02/21 Unknown Rx tablet cephALEXin [Keflex] 500 mg PO Q8HR 2 Days #6 cap 05/02/21 Unknown Rx hydrALAZINE [Apresoline TAB] 50 mg FEEDTUBE Q8HR 30 Days #90 05/02/21 Unknown Rx tablet Active Meds: Active Medications Acetaminophen (Acetaminophen 325 Mg Tab) 650 mg PO Q4H PRN PRN Reason: Pain MILD(1-3)/Fever >100.5/RAYO Acetylcysteine (Acetylcysteine 20% 200 Mg/1 Ml *For Inhalation Use*) 200 mg INHALATION Q8HRT [facility] Stop: 07/28/21 16:01 Last Admin: 07/27/21 08:47 Dose: 200 mg Albuterol/Ipratropium (Ipratropium/Albuterol Sulfate 3 Ml Ampul.Neb) 1 ampul IH Q8HRT [facility] Last Admin: 07/27/21 08:47 Dose: 1 ampul Lipase/Protease/Amylase (Lipase 10,500/Protease 25,000/Amylase 43,750 (Units) Dr Zambrano) 1 each FEEDTUBE PRN PRN PRN Reason: For Clogged Feeding Tube Dextrose (Dextrose 50% In Water (25gm) 50 Ml Syringe) 50 ml IV Q30MIN PRN; Protocol PRN Reason: Hypoglycemia Famotidine (Famotidine 10 Mg Tab) 10 mg FEEDTUBE BID [facility] Last Admin: 07/27/21 10:28 Dose: 10 mg Heparin Sodium (Porcine) (Heparin 5,000 Unit/1 Ml Vial) 5,000 unit SUB-Q Q12HR [facility] Last Admin: 07/27/21 10:28 Dose: 5,000 unit Hydralazine HCl (Hydralazine 20 Mg/1 Ml Inj) 20 mg IV Q6H PRN PRN Reason: Blood Pressure Last Admin: 07/27/21 04:33 Dose: 20 mg Cefepime HCl (Cefepime/Ns 2 Gm/100 Ml) 2 gm in 100 mls @ 200 mls/hr IV Q12H [facility]; Protocol Insulin Human Regular (Insulin Regular, Human 100 Units/1 Ml) 0 units SUB-Q Q6HR [facility]; Protocol Last Admin: 07/27/21 06:18 Dose: Not Given Ondansetron HCl (Ondansetron 4 Mg/2 Ml Inj) 4 mg IV Q8H PRN PRN Reason: Nausea And Vomiting Oxycodone/Acetaminophen (Oxycodone /Acetaminophen 5-325mg Tab) 1 tab PO Q6H PRN PRN Reason: Pain, Moderate (4-6) Polyethylene Glycol (Polyethylene Glycol 3350 17 Gm Powder) 17 gm PO QDAY PRN PRN Reason: Constipation Senna/Docusate Sodium (Sennosides/Docusate Sodium 8.6/50 Mg Tab) 1 tab PO QHS [facility] Last Admin: 07/26/21 23:59 Dose: 1 tab Simple Syrup (Simple Syrup 15 Ml) 15 ml FEEDTUBE PRN PRN PRN Reason: Hypoglycemia Simple Syrup (Simple Syrup 15 Ml) 30 ml FEEDTUBE PRN PRN PRN Reason: Hypoglycemia Sodium Bicarbonate (Sodium Bicarbonate 325 Mg Tab) 325 mg FEEDTUBE PRN PRN PRN Reason: For Clogged Feeding Tube Sodium Chloride (Sodium Chloride 0.9% 10 Ml Flush Syringe) 10 ml IV BID [facility] Last Admin: 07/26/21 23:59 Dose: 10 ml Sodium Chloride (Sodium Chloride 0.9% 10 Ml Flush Syringe) 10 ml IV PRN PRN PRN Reason: LINE FLUSH Last Admin: 07/26/21 00:08 Dose: 10 ml Review of Systems ROS unobtainable: due to mental status Physical Examination - Physical Exam Narrative exam: Physical Exam: Constitutional: Alert, cooperative. No acute distress Head, Ears, Nose: Normocephalic, atraumatic. External ears, nose normal Eyes: Conjunctivae/corneas clear. No icterus. No ptosis. Neck: Supple, no meningeal signs +trach Oral: dentition fair, no thrush Cardiovascular: S1, S2 normal. Respiratory: Good air entry, clear to auscultation bilaterally GI: Soft, non-tender; bowel sounds normal. No peritoneal signs. Musculoskeletal: No pedal edema, no cyanosis. Skin: No rash or abscess Hem/Lymphatic: No palpable cervical or supraclavicular nodes. No lymphangitis Psych: Mood ok. Affect normal Neurological: Awake, alert, oriented. No gross abnormality - Constitutional Vitals: Vital Signs Temp Pulse Resp BP Pulse Ox 97.6 F 89 30 H 146/73 98 07/27/21 04:00 07/27/21 12:40 07/27/21 08:45 07/27/21 12:40 07/27/21 12:40 Temperature -Last 24 Hours Temperature 97.6 F Temperature 97.6 F Temperature 98.8 F Results - Labs CBC & Chem 7: 07/27/21 04:54 07/27/21 04:54 Labs: Abnormal lab results 07/26/21 07/27/21 07/27/21 Range/Units 17:18 04:54 04:54 WBC 11.9 H (4.5-11.0) K/mm3 Hgb 11.1 L (11.8-15.2) gm/dl Hct 34.5 L (35.5-45.6) % MCH 27 L (28-32) pg RDW 15.5 H (13.2-15.2) % ABG pO2 (80.0-90.0) mm Hg ABG HCO3 (20.0-26.0) mmol/L ABG Base Excess (-2.0-3.0) mmol/L ABG Hemoglobin (14.0-18.0) gm/dl Sodium 136 L (137-145) mmol/L BUN 37 H (9-20) mg/dL Creatinine 2.2 H D (0.8-1.3) mg/dL POC Glucose 111 H (70-105) mg/dL 07/27/21 Range/Units 10:30 WBC (4.5-11.0) K/mm3 Hgb (11.8-15.2) gm/dl Hct (35.5-45.6) % MCH (28-32) pg RDW (13.2-15.2) % ABG pO2 76.9 L (80.0-90.0) mm Hg ABG HCO3 30.2 H (20.0-26.0) mmol/L ABG Base Excess 3.9 H (-2.0-3.0) mmol/L ABG Hemoglobin 11.2 L (14.0-18.0) gm/dl Sodium (137-145) mmol/L BUN (9-20) mg/dL Creatinine (0.8-1.3) mg/dL POC Glucose (70-105) mg/dL Assessment and Plan Cultures: Blood culture no growth so far Urine culture no growth so far A/P: 61-year-old man past medical history diabetes, chronic respiratory failure now with: #Acute on chronic respiratory failure improving bilateral opacities from previous when he completed 2 weeks of high-dose cefazolin due to his weight. This admission negative MRSA PCR, negative COVID PCR. #Diabetes: tight glycemic control for best outcomes. #MONIK: Renally dose medications. Recs: -Continue cefepime for now -Monitor white count Thank you for the consult, we will continue to follow. Nayan Goins MD [facility] O: [phone] F: [phone]
--- NOTE | 2021-07-27 17:44 | Progress Note ---
<ABDULLAHIJudieMARISABELLester - Last Filed: 07/27/21 17:45> Assessment and Plan Assessment and plan: This is a 61 year old male from a SNF with chronic hypoxic resp failure s/p trach, recent COVID 19 infection, ischemic cardiomyopathy IDDM, obesity admitted with acute on chronic resp failure, HAP, hyperkalemia, and lactic acidosis. Neuro: NAD -Sedated with fentanyl -Changed to p.o. oxycodone -RASS goal 0 to -1 -Avoid delirium -Reorientation as needed -Maintain sleep-wake cycle -As needed analgesia -CT head continued mild microvascular angiopathy without clear CT evidence of acute intercranial hemorrhage -Bilateral wrist restraints in place for safety Cardiac: h/o HTN -Cardiology consulted, appreciate recommendations -Blood pressure monitoring per protocol -03/09/21 Echocardiogram LVEF 60-65% -Resume home antihtn regimen when indicated Respiratory: Acute on chronic hypercapnic respiratory failure, h/o s/p trach -CCM consulted, appreciate recommendations -A.m. vent settings: Pressure AC Rate 30, Peep 6, FiO2 50% -See RT notes for titration -A.m. ABG and CXR noted -VAP bundle -SPO2 monitoring GI: MO, moderate protein calorie malnutrition -24 hours -208 mL -PPI -NTR consulted for tube feedings -s/p PEG tube in place -BR: Jonas Paez : Hyponatremia, acute kidney injury, h/o urinary retention -Nephrology consulted, appreciate recommendations -Renal ultrasound pending -Urine lites pending -Monitor intake and output -Renally dose medications -Avoid nephrotoxic medications -Daily weights -Good catheter placed for urinary retention -Trend BMP ID: HAP -Infectious disease consulted, appreciate recommendations -COVID PCR (-) -MRSA PCR pending -Antibiotic therapy with vancomycin and cefepime -vanco d/c d/t shraddha -f/u blood culture -Monitor WBC and temperature curve Endo: h/o DM -Avoid hypoglycemia -SSI -Accu-Cheks q. 6 Heme: Leukocytosis -Heparin subq -Trend CBC -Transfuse hemoglobin less than 7 -Monitor for signs of bleeding -SCDs to BLE while in bed The high probability of a clinically significant, sudden or life threatening deterioration of the [pulm] system(s) required my full and direct attention, intervention and personal management. The aggregate critical care time was [60] minutes. This time is in addition to time spent performing reported procedures but includes the following: [x] Data Review and interpretation [x] Patient assessment and monitoring of vital signs [x] Documentation [x] Medication orders and management Disposition Plan: ICU Total Time Spent with Patient (Minutes): 60 History Interval history: This is a 61-year-old male who is a resident of a [facility] facility with chronic hypoxic respiratory failure s/p trach with vent dependency, recent COVID-19 infection, ischemic cardiomyopathy, type 2 diabetes mellitus, obesity who presented to the emergency department on 07/25 via EMS with chief complaints of respiratory distress from his assisted. In the emergency department patient was placed on the ventilator as he was tachypneic, dyspneic and did not improve after suctioning. Work-up in the emergency department revealed lactic acidosis, leukocytosis and CXR revealed possible retrocardiac pneumonia and started on antibiotics for HAP. Patient was admitted to the hospitalist service with consults to [facility] with acute on chronic respiratory failure and HAP. Hospital course to date: 07/26: Stopped Solu-Medrol, given For hyperkalemia, started on tube feedings. Remains on fentanyl and Mucomyst 07/27: Renal indices increased, patient did receive Lasix x1 yesterday. Nephrology was consulted. Urine lites and bilateral renal ultrasound pending. Infectious disease consulted. Bladder scan performed and Good catheter placed. COVID 19 PCR negative Hospitalist Physical - Constitutional Vitals: Temp Pulse Resp BP Pulse Ox 97.6 F 95 H 30 H 147/85 98 07/27/21 04:00 07/27/21 16:55 07/27/21 08:45 07/27/21 16:55 07/27/21 16:55 General appearance: Present: no acute distress, obese - EENT Eyes: Present: PERRL, EOM intact ENT: clear oral mucosa, dentition normal - Neck Neck: Present: normal ROM - Respiratory Respiratory effort: normal Respiratory: bilateral: CTA, diminished - Cardiovascular Rhythm: regular Heart Sounds: Present: S1 & S2. Absent: systolic murmur, diastolic murmur - Extremities Extremities: no ischemia, pulses intact, pulses symmetrical, No edema, normal temperature, normal color, Full ROM Peripheral Pulses: within normal limits - Abdominal General gastrointestinal: soft, non-tender, non-distended, normal bowel sounds - Integumentary Integumentary: Present: warm, dry - Psychiatric Psychiatric: appropriate mood/affect, cooperative - Neurologic Neurologic: CNII-XII intact, no focal deficits, moves all extremities - Allied Health Allied health notes reviewed: nursing, RT, social work HEART Score - HEART Score Troponin: Troponin T < 0.010 ng/mL (0.00-0.029) 07/25/21 Unknown Results - Labs CBC & Chem 7: 07/27/21 04:54 07/27/21 04:54 Labs: Laboratory Last Values WBC 11.9 K/mm3 (4.5-11.0) H 07/27/21 04:54 RBC 4.08 M/mm3 (3.65-5.03) 07/27/21 04:54 Hgb 11.1 gm/dl (11.8-15.2) L 07/27/21 04:54 Hct 34.5 % (35.5-45.6) L 07/27/21 04:54 MCV 85 fl (84-94) 07/27/21 04:54 MCH 27 pg (28-32) L 07/27/21 04:54 MCHC 32 % (32-34) 07/27/21 04:54 RDW 15.5 % (13.2-15.2) H 07/27/21 04:54 Plt Count 301 K/mm3 (140-440) 07/27/21 04:54 Lymph # (Auto) [facility] 07/25/21 Unknown Add Manual Diff Complete 07/26/21 03:50 Total Counted 100 07/26/21 03:50 Seg Neuts % (Manual) 96.0 % (40.0-70.0) H 07/26/21 03:50 Band Neutrophils % 0 % 07/26/21 03:50 Lymphocytes % (Manual) 3.0 % (13.4-35.0) L 07/26/21 03:50 Reactive Lymphs % (Man) 0 % 07/26/21 03:50 Monocytes % (Manual) 1.0 % (0.0-7.3) 07/26/21 03:50 Eosinophils % (Manual) 0 % (0.0-4.3) 07/26/21 03:50 Basophils % (Manual) 0 % (0.0-1.8) 07/26/21 03:50 Metamyelocytes % 0 % 07/26/21 03:50 Myelocytes % 0 % 07/26/21 03:50 Promyelocytes % 0 % 07/26/21 03:50 Blast Cells % 0 % 07/26/21 03:50 Nucleated RBC % Not Reportable 07/26/21 03:50 Seg Neutrophils # Man 14.9 K/mm3 (1.8-7.7) H 07/26/21 03:50 Band Neutrophils # 0.0 K/mm3 07/26/21 03:50 Lymphocytes # (Manual) 0.5 K/mm3 (1.2-5.4) L 07/26/21 03:50 Abs React Lymphs (Man) 0.0 K/mm3 07/26/21 03:50 Monocytes # (Manual) 0.2 K/mm3 (0.0-0.8) 07/26/21 03:50 Eosinophils # (Manual) 0.0 K/mm3 (0.0-0.4) 07/26/21 03:50 Basophils # (Manual) 0.0 K/mm3 (0.0-0.1) 07/26/21 03:50 Metamyelocytes # 0.0 K/mm3 07/26/21 03:50 Myelocytes # 0.0 K/mm3 07/26/21 03:50 Promyelocytes # 0.0 K/mm3 07/26/21 03:50 Blast Cells # 0.0 K/mm3 07/26/21 03:50 WBC Morphology Not Reportable 07/26/21 03:50 Hypersegmented Neuts Not Reportable 07/26/21 03:50 Hyposegmented Neuts Not Reportable 07/26/21 03:50 Hypogranular Neuts Not Reportable 07/26/21 03:50 Smudge Cells Not Reportable 07/26/21 03:50 Toxic Granulation Not Reportable 07/26/21 03:50 Toxic Vacuolation Not Reportable 07/26/21 03:50 Dohle Bodies Not Reportable 07/26/21 03:50 Pelger-Huet Anomaly Not Reportable 07/26/21 03:50 Mely Rods Not Reportable 07/26/21 03:50 Platelet Estimate Consistent w auto 07/26/21 03:50 Clumped Platelets Not Reportable 07/26/21 03:50 Plt Clumps, EDTA Not Reportable 07/26/21 03:50 Large Platelets Not Reportable 07/26/21 03:50 Giant Platelets Not Reportable 07/26/21 03:50 Platelet Satelliting Not Reportable 07/26/21 03:50 Plt Morphology Comment Not Reportable 07/26/21 03:50 RBC Morphology Not Reportable 07/26/21 03:50 Dimorphic RBCs Not Reportable 07/26/21 03:50 Polychromasia Not Reportable 07/26/21 03:50 Hypochromasia Not Reportable 07/26/21 03:50 Poikilocytosis Not Reportable 07/26/21 03:50 Anisocytosis 1+ 07/26/21 03:50 Microcytosis Not Reportable 07/26/21 03:50 Macrocytosis Not Reportable 07/26/21 03:50 Spherocytes Few 07/26/21 03:50 Pappenheimer Bodies Not Reportable 07/26/21 03:50 Sickle Cells Not Reportable 07/26/21 03:50 Target Cells Not Reportable 07/26/21 03:50 Tear Drop Cells Not Reportable 07/26/21 03:50 Ovalocytes Not Reportable 07/26/21 03:50 Helmet Cells Not Reportable 07/26/21 03:50 Longo-Honor Bodies Not Reportable 07/26/21 03:50 [place] Rings Not Reportable 07/26/21 03:50 [place] Cells Not Reportable 07/26/21 03:50 Bite Cells Not Reportable 07/26/21 03:50 Crenated Cell Not Reportable 07/26/21 03:50 Elliptocytes Not Reportable 07/26/21 03:50 Acanthocytes (Spur) Not Reportable 07/26/21 03:50 Rouleaux Not Reportable 07/26/21 03:50 Hemoglobin C Crystals Not Reportable 07/26/21 03:50 Schistocytes Not Reportable 07/26/21 03:50 Malaria parasites Not Reportable 07/26/21 03:50 Shaheen Bodies Not Reportable 07/26/21 03:50 Hem Pathologist Commnt No 07/26/21 03:50 ABG pH 7.370 pH Units (7.350-7.450) 07/27/21 10:30 ABG pCO2 53.4 mm Hg 07/27/21 10:30 ABG pO2 76.9 mm Hg (80.0-90.0) L 07/27/21 10:30 ABG HCO3 30.2 mmol/L (20.0-26.0) H 07/27/21 10:30 ABG O2 Saturation 96.6 % (95.0-99.0) 07/27/21 10:30 ABG O2 Content 15.0 (0.0-44) 07/27/21 10:30 ABG Base Excess 3.9 mmol/L (-2.0-3.0) H 07/27/21 10:30 ABG Hemoglobin 11.2 gm/dl (14.0-18.0) L 07/27/21 10:30 ABG Carboxyhemoglobin 1.1 % (0.0-5.0) 07/27/21 10:30 ABG Methemoglobin 0.6 % (0.0-1.5) 07/27/21 10:30 Oxyhemoglobin 95.0 % (95.0-99.0) 07/27/21 10:30 FiO2 45 % 07/27/21 10:30 Sodium 136 mmol/L (137-145) L 07/27/21 04:54 Potassium 4.7 mmol/L (3.6-5.0) 07/27/21 04:54 Chloride 98.0 mmol/L (98-107) 07/27/21 04:54 Carbon Dioxide 28 mmol/L (22-30) 07/27/21 04:54 Anion Gap 15 mmol/L 07/27/21 04:54 BUN 37 mg/dL (9-20) H 07/27/21 04:54 Creatinine 2.2 mg/dL (0.8-1.3) H D 07/27/21 04:54 Estimated GFR 30 ml/min 07/27/21 04:54 BUN/Creatinine Ratio 17 % 07/27/21 04:54 Glucose 97 mg/dL (75-100) 07/27/21 04:54 POC Glucose 97 mg/dL (70-105) 07/27/21 05:16 Hemoglobin A1c 5.9 % (4-6) 07/26/21 03:50 Lactic Acid 4.90 mmol/L (0.7-2.0) H* 07/25/21 Unknown Calcium 9.3 mg/dL (8.4-10.2) 07/27/21 04:54 Total Bilirubin 0.20 mg/dL (0.1-1.2) 07/26/21 03:50 AST 19 units/L (5-40) 07/26/21 03:50 ALT 11 units/L (7-56) 07/26/21 03:50 Alkaline Phosphatase 73 units/L (35-129) 07/26/21 03:50 Troponin T < 0.010 ng/mL (0.00-0.029) 07/25/21 Unknown C-Reactive Protein 2.40 mg/dL (0.00-1.30) H 07/27/21 15:57 Total Protein 8.2 g/dL (6.3-8.2) 07/26/21 03:50 Albumin 3.7 g/dL (3.9-5) L 07/26/21 03:50 Albumin/Globulin Ratio 0.8 % 07/26/21 03:50 Urine Color Yellow (Yellow) 07/25/21 11:19 Urine Turbidity Cloudy (Clear) 07/25/21 11:19 Urine pH 6.0 (5.0-7.0) 07/25/21 11:19 Ur Specific [place] 1.015 (1.003-1.030) 07/25/21 11:19 Urine Protein >500 mg/dL (Negative) 07/25/21 11:19 Urine Glucose (UA) 150 mg/dL (Negative) 07/25/21 11:19 Urine Ketones Neg mg/dL (Negative) 07/25/21 11:19 Urine Blood Neg (Negative) 07/25/21 11:19 Urine Nitrite Neg (Negative) 07/25/21 11:19 Urine Bilirubin Neg (Negative) 07/25/21 11:19 Urine Urobilinogen < 2.0 mg/dL (<2.0) 07/25/21 11:19 Ur Leukocyte Esterase Neg (Negative) 07/25/21 11:19 Urine WBC (Auto) 26.0 /HPF (0.0-6.0) H 07/25/21 11:19 Urine RBC (Auto) 53.0 /HPF (0.0-6.0) 07/25/21 11:19 U Epithel Cells (Auto) 7.0 /HPF (0-13.0) 07/25/21 11:19 Urine Bacteria (Auto) 4+ /HPF (Negative) 07/25/21 11:19 Hyaline Casts 21 /LPF 07/25/21 11:19 Urine Mucus Few /HPF 07/25/21 11:19 Urine Yeast (Budding) 2+ /HPF 07/25/21 11:19 Urine Sperm 3+ /HPF ([employer]IST) 07/25/21 11:19 Nasal Screen MRSA (PCR) Positive (Negative) 07/26/21 16:30 Coronavirus (PCR) Negative (Negative) 07/27/21 09:00 Microbiology: Microbiology 07/25/21 11:44 Peripheral/Venous Blood Culture - Preliminary NO GROWTH AFTER 48 HOURS 07/25/21 11:23 Peripheral/Venous Blood Culture - Preliminary NO GROWTH AFTER 48 HOURS 07/25/21 11:19 Urine,Clean Catch Urine Culture - Final NO GROWTH AFTER 48 HOURS Good/IV: Voiding Method Condom Catheter Active Medications - Current Medications Current Medications: Generic Name Dose Route Start Last Admin Trade Name Freq PRN Reason Stop Dose Admin Acetaminophen 650 mg 07/25/21 16:00 Acetaminophen 325 Mg Tab PO Q4H PRN Pain MILD(1-3)/Fever >100.5/RAYO Acetylcysteine 200 mg 07/26/21 00:00 07/27/21 17:00 Acetylcysteine 20% 200 Mg/1 Ml *For Inhalation Use* INHALATION 07/28/21 16:01 Not Given Q8HRT BLANCA Albuterol/Ipratropium 1 ampul 07/26/21 16:00 07/27/21 17:00 Ipratropium/Albuterol Sulfate 3 Ml Ampul.Neb IH 1 ampul Q8HRT BLANCA Administration Lipase/Protease/Amylase 1 each 07/26/21 14:56 Lipase 10,500/Protease 25,000/Amylase 43,750 (Units) Dr Zambrano FEEDTUBE PRN PRN For Clogged Feeding Tube Dextrose 50 ml 07/26/21 12:22 Dextrose 50% In Water (25gm) 50 Ml Syringe IV Q30MIN PRN Hypoglycemia Protocol Famotidine 10 mg 07/27/21 10:00 07/27/21 10:28 Famotidine 10 Mg Tab FEEDTUBE 10 mg BID BLANCA Administration Heparin Sodium (Porcine) 5,000 unit 07/25/21 16:00 07/27/21 10:28 Heparin 5,000 Unit/1 Ml Vial SUB-Q 5,000 unit Q12HR BLANCA Administration Hydralazine HCl 20 mg 07/27/21 06:00 07/27/21 04:33 Hydralazine 20 Mg/1 Ml Inj IV 20 mg Q6H PRN Administration Blood Pressure Cefepime HCl 2 gm in 100 mls @ 200 mls/hr 07/27/21 18:00 Cefepime/Ns 2 Gm/100 Ml IV Q12H [facility] Protocol Insulin Human Regular 0 units 07/26/21 12:00 07/27/21 06:18 Insulin Regular, Human 100 Units/1 Ml SUB-Q Not Given Q6HR [facility] Protocol Ondansetron HCl 4 mg 07/25/21 16:00 Ondansetron 4 Mg/2 Ml Inj IV Q8H PRN Nausea And Vomiting Oxycodone/Acetaminophen 1 tab 07/27/21 12:27 Oxycodone /Acetaminophen 5-325mg Tab PO Q6H PRN Pain, Moderate (4-6) Polyethylene Glycol 17 gm 07/26/21 17:04 Polyethylene Glycol 3350 17 Gm Powder PO QDAY PRN Constipation Senna/Docusate Sodium 1 tab 07/26/21 22:00 07/26/21 23:59 Sennosides/Docusate Sodium 8.6/50 Mg Tab PO 1 tab QHS BLANCA Administration Simple Syrup 15 ml 07/26/21 14:56 Simple Syrup 15 Ml FEEDTUBE PRN PRN Hypoglycemia Simple Syrup 30 ml 07/26/21 14:56 Simple Syrup 15 Ml FEEDTUBE PRN PRN Hypoglycemia Sodium Bicarbonate 325 mg 07/26/21 14:56 Sodium Bicarbonate 325 Mg Tab FEEDTUBE PRN PRN For Clogged Feeding Tube Sodium Chloride 10 ml 07/25/21 22:00 07/26/21 23:59 Sodium Chloride 0.9% 10 Ml Flush Syringe IV 10 ml BID BLANCA Administration Sodium Chloride 10 ml 07/25/21 16:00 07/26/21 00:08 Sodium Chloride 0.9% 10 Ml Flush Syringe IV 10 ml PRN PRN Administration LINE FLUSH Nutrition/Malnutrition Assess - Dietary Evaluation Nutrition/Malnutrition Findings: Nutrition Notes Start: 07/26/21 14:26 Freq: Status: Active Protocol: Document 07/26/21 14:26 BRYANNA (Rec: 07/26/21 15:00 BRYANNA [id number]) Nutrition Notes Need for Assessment generated from: MD Order Initial or Follow up Assessment Current Diagnosis Diabetes,Sepsis,Hypertension, Respiratory Failure Other Pertinent Diagnosis HCAP, CHF, Ischemic Cardiomyopathy, Dysphagia. Current Diet TF-Glucerna 1.2 Tyson @ 65 ml/hr (from D 07/26). Labs/Tests 07/26: Na 132.K 5.6, Cl 93.2, Glu 171. Pertinent Medications 07/26: Nutritionally unremarkable. 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 Weight Status Obese Subjective/Other Information RD consult for write/manage TF . Pt is permanently on NPO due to oropharyngeal Dysphagia and has a PEG tube placed poa, according to Progress notes. Pt is permanently on Mechanical Ventilation with Tracheostomy tube placed, O2 saturation @ 100%, according to Physical Assessment History and Progress notes. Pt lives on a SNF, according to Progress notes. Percent of energy/protein needs met: Prescribed TF-Glucerna 1.2 Tyson @ 65 ml/hr provides for energy/protein needs (1,885 Kcal/94 g) during LOS, 80% Kcal; 100% AA. Burn Absent Trauma Absent GI Symptoms None Difficulty In Swallowing Food Allergy No Skin Integrity/Comment Unspecified Area of Concern. Current % PO Other Minimum of two criteria No Fluid Accumulation N/A Reduced [place] Strength N/A (non-severe) Protein-Calorie Malnutrition N\A #1 Nutrition Diagnosis Swallowing difficulty Etiology Oropharyngeal Dysphagia poa. As Evidenced by Signs and Symptoms Pt is permanently on NPO and has a PEG tube placed poa, according to Progress notes. Is patient on ventilator? Yes Is Patient Ambulatory and/or Out of Bed No REE-([facility]-confined to bed) [phone] [facility]culation [facility] Additional Notes Protein: 0.8-1 g/Kg AdjBW; 78- 97 g/day. Fluids: 1 ml/Kcal, or as per MD. Nutrition Intervention Nutrition Support: Start TF-Glucerna 1.2 Tyson @ 65 ml/hr. Flush: 180 ml water Q 4 hr, or as per MD. Kcal 1,885 Protein (gm) 94 Carbohydrates (gm) 180 Fat (gm) 94 Fluid (mL) 1,265 Fiber (gm) 25 % RDI: 80% Kcal; 100% AA. Goal #1 Provide at least 75% of energy /protein needs through Enteral Feeding during LOS. Goal #2 Maintain body weight within +/ -3% of admission body weight during LOS. Follow-Up By: 07/28/21 Additional Comments Start monitoring TF tolerance and BM. <RAFAEL DOMINGUEZ - Last Filed: 08/01/21 10:25> Assessment and Plan Assessment and plan: I saw and evaluated the patient. Discussed with the nurse practitioner and agree with their findings and plan as documented in this note. Hospitalist Physical - Constitutional Vitals: Temp Pulse Resp BP Pulse Ox 98.3 F 78 20 147/79 98 08/01/21 05:29 08/01/21 05:29 08/01/21 05:29 08/01/21 05:29 08/01/21 05:29 HEART Score - HEART Score Troponin: Troponin T < 0.010 ng/mL (0.00-0.029) 07/25/21 Unknown Results - Labs CBC & Chem 7: 07/30/21 04:19 08/01/21 05:42 Labs: Laboratory Last Values WBC 7.4 K/mm3 (4.5-11.0) 07/30/21 04:19 RBC 3.93 M/mm3 (3.65-5.03) 07/30/21 04:19 Hgb 10.9 gm/dl (11.8-15.2) L 07/30/21 04:19 Hct 32.6 % (35.5-45.6) L 07/30/21 04:19 MCV 83 fl (84-94) L 07/30/21 04:19 MCH 28 pg (28-32) 07/30/21 04:19 MCHC 34 % (32-34) 07/30/21 04:19 RDW 16.2 % (13.2-15.2) H 07/30/21 04:19 Plt Count 324 K/mm3 (140-440) 07/30/21 04:19 Lymph # (Auto) [facility] 07/25/21 Unknown Add Manual Diff Complete 07/26/21 03:50 Total Counted 100 07/26/21 03:50 Seg Neuts % (Manual) 96.0 % (40.0-70.0) H 07/26/21 03:50 Band Neutrophils % 0 % 07/26/21 03:50 Lymphocytes % (Manual) 3.0 % (13.4-35.0) L 07/26/21 03:50 Reactive Lymphs % (Man) 0 % 07/26/21 03:50 Monocytes % (Manual) 1.0 % (0.0-7.3) 07/26/21 03:50 Eosinophils % (Manual) 0 % (0.0-4.3) 07/26/21 03:50 Basophils % (Manual) 0 % (0.0-1.8) 07/26/21 03:50 Metamyelocytes % 0 % 07/26/21 03:50 Myelocytes % 0 % 07/26/21 03:50 Promyelocytes % 0 % 07/26/21 03:50 Blast Cells % 0 % 07/26/21 03:50 Nucleated RBC % Not Reportable 07/26/21 03:50 Seg Neutrophils # Man 14.9 K/mm3 (1.8-7.7) H 07/26/21 03:50 Band Neutrophils # 0.0 K/mm3 07/26/21 03:50 Lymphocytes # (Manual) 0.5 K/mm3 (1.2-5.4) L 07/26/21 03:50 Abs React Lymphs (Man) 0.0 K/mm3 07/26/21 03:50 Monocytes # (Manual) 0.2 K/mm3 (0.0-0.8) 07/26/21 03:50 Eosinophils # (Manual) 0.0 K/mm3 (0.0-0.4) 07/26/21 03:50 Basophils # (Manual) 0.0 K/mm3 (0.0-0.1) 07/26/21 03:50 Metamyelocytes # 0.0 K/mm3 07/26/21 03:50 Myelocytes # 0.0 K/mm3 07/26/21 03:50 Promyelocytes # 0.0 K/mm3 07/26/21 03:50 Blast Cells # 0.0 K/mm3 07/26/21 03:50 WBC Morphology Not Reportable 07/26/21 03:50 Hypersegmented Neuts Not Reportable 07/26/21 03:50 Hyposegmented Neuts Not Reportable 07/26/21 03:50 Hypogranular Neuts Not Reportable 07/26/21 03:50 Smudge Cells Not Reportable 07/26/21 03:50 Toxic Granulation Not Reportable 07/26/21 03:50 Toxic Vacuolation Not Reportable 07/26/21 03:50 Dohle Bodies Not Reportable 07/26/21 03:50 Pelger-Huet Anomaly Not Reportable 07/26/21 03:50 Mely Rods Not Reportable 07/26/21 03:50 Platelet Estimate Consistent w auto 07/26/21 03:50 Clumped Platelets Not Reportable 07/26/21 03:50 Plt Clumps, EDTA Not Reportable 07/26/21 03:50 Large Platelets Not Reportable 07/26/21 03:50 Giant Platelets Not Reportable 07/26/21 03:50 Platelet Satelliting Not Reportable 07/26/21 03:50 Plt Morphology Comment Not Reportable 07/26/21 03:50 RBC Morphology Not Reportable 07/26/21 03:50 Dimorphic RBCs Not Reportable 07/26/21 03:50 Polychromasia Not Reportable 07/26/21 03:50 Hypochromasia Not Reportable 07/26/21 03:50 Poikilocytosis Not Reportable 07/26/21 03:50 Anisocytosis 1+ 07/26/21 03:50 Microcytosis Not Reportable 07/26/21 03:50 Macrocytosis Not Reportable 07/26/21 03:50 Spherocytes Few 07/26/21 03:50 Pappenheimer Bodies Not Reportable 07/26/21 03:50 Sickle Cells Not Reportable 07/26/21 03:50 Target Cells Not Reportable 07/26/21 03:50 Tear Drop Cells Not Reportable 07/26/21 03:50 Ovalocytes Not Reportable 07/26/21 03:50 Helmet Cells Not Reportable 07/26/21 03:50 Longo-Honor Bodies Not Reportable 07/26/21 03:50 [place] Rings Not Reportable 07/26/21 03:50 [place] Cells Not Reportable 07/26/21 03:50 Bite Cells Not Reportable 07/26/21 03:50 Crenated Cell Not Reportable 07/26/21 03:50 Elliptocytes Not Reportable 07/26/21 03:50 Acanthocytes (Spur) Not Reportable 07/26/21 03:50 Rouleaux Not Reportable 07/26/21 03:50 Hemoglobin C Crystals Not Reportable 07/26/21 03:50 Schistocytes Not Reportable 07/26/21 03:50 Malaria parasites Not Reportable 07/26/21 03:50 Shaheen Bodies Not Reportable 07/26/21 03:50 Hem Pathologist Commnt No 07/26/21 03:50 ABG pH 7.449 pH Units (7.350-7.450) 07/29/21 20:45 ABG pCO2 51.3 mm Hg 07/29/21 20:45 ABG pO2 85.8 mm Hg (80.0-90.0) 07/29/21 20:45 ABG HCO3 34.7 mmol/L (20.0-26.0) H 07/29/21 20:45 ABG O2 Saturation 97.0 % (95.0-99.0) 07/29/21 20:45 ABG O2 Content 15.7 (0.0-44) 07/29/21 20:45 ABG Base Excess 9.3 mmol/L (-2.0-3.0) H 07/29/21 20:45 ABG Hemoglobin 11.7 gm/dl (14.0-18.0) L 07/29/21 20:45 ABG Carboxyhemoglobin 1.2 % (0.0-5.0) 07/29/21 20:45 ABG Methemoglobin 0.6 % (0.0-1.5) 07/29/21 20:45 Oxyhemoglobin 95.2 % (95.0-99.0) 07/29/21 20:45 FiO2 35 % 07/29/21 20:45 Sodium 141 mmol/L (137-145) 08/01/21 05:42 Potassium 4.7 mmol/L (3.6-5.0) 08/01/21 05:42 Chloride 99.7 mmol/L (98-107) 08/01/21 05:42 Carbon Dioxide 33 mmol/L (22-30) H 08/01/21 05:42 Anion Gap 13 mmol/L 08/01/21 05:42 BUN 29 mg/dL (9-20) H 08/01/21 05:42 Creatinine 2.0 mg/dL (0.8-1.3) H 08/01/21 05:42 Estimated GFR 34 ml/min 08/01/21 05:42 BUN/Creatinine Ratio 15 % 08/01/21 05:42 Glucose 106 mg/dL (75-100) H 08/01/21 05:42 POC Glucose 105 mg/dL (70-105) 08/01/21 05:37 Hemoglobin A1c 5.9 % (4-6) 07/26/21 03:50 Lactic Acid 4.90 mmol/L (0.7-2.0) H* 07/25/21 Unknown Calcium 9.9 mg/dL (8.4-10.2) 08/01/21 05:42 Total Bilirubin 0.20 mg/dL (0.1-1.2) 07/26/21 03:50 AST 19 units/L (5-40) 07/26/21 03:50 ALT 11 units/L (7-56) 07/26/21 03:50 Alkaline Phosphatase 73 units/L (35-129) 07/26/21 03:50 Troponin T < 0.010 ng/mL (0.00-0.029) 07/25/21 Unknown C-Reactive Protein 2.40 mg/dL (0.00-1.30) H 07/27/21 15:57 Total Protein 8.2 g/dL (6.3-8.2) 07/26/21 03:50 Albumin 3.7 g/dL (3.9-5) L 07/26/21 03:50 Albumin/Globulin Ratio 0.8 % 07/26/21 03:50 Procalcitonin 0.77 ng/mL (<0.15) 07/27/21 15:57 Urine Color Yellow (Yellow) 07/25/21 11:19 Urine Turbidity Cloudy (Clear) 07/25/21 11:19 Urine pH 6.0 (5.0-7.0) 07/25/21 11:19 Ur Specific [place] 1.015 (1.003-1.030) 07/25/21 11:19 Urine Protein >500 mg/dL (Negative) 07/25/21 11:19 Urine Glucose (UA) 150 mg/dL (Negative) 07/25/21 11:19 Urine Ketones Neg mg/dL (Negative) 07/25/21 11:19 Urine Blood Neg (Negative) 07/25/21 11:19 Urine Nitrite Neg (Negative) 07/25/21 11:19 Urine Bilirubin Neg (Negative) 07/25/21 11:19 Urine Urobilinogen < 2.0 mg/dL (<2.0) 07/25/21 11:19 Ur Leukocyte Esterase Neg (Negative) 07/25/21 11:19 Urine WBC (Auto) 26.0 /HPF (0.0-6.0) H 07/25/21 11:19 Urine RBC (Auto) 53.0 /HPF (0.0-6.0) 07/25/21 11:19 U Epithel Cells (Auto) 7.0 /HPF (0-13.0) 07/25/21 11:19 Urine Bacteria (Auto) 4+ /HPF (Negative) 07/25/21 11:19 Hyaline Casts 21 /LPF 07/25/21 11:19 Urine Mucus Few /HPF 07/25/21 11:19 Urine Yeast (Budding) 2+ /HPF 07/25/21 11:19 Urine Sperm 3+ /HPF ([employer]) 07/25/21 11:19 Urine Eosinophils None seen (None Seen) 07/27/21 17:45 Urine Creatinine 105.6 mg/dL (0.1-20.0) H 07/27/21 17:45 Urine Creatinine 106.0 mg/dL (0.1-20.0) H 07/27/21 17:45 Protein/Creatinin Ratio 0.28 07/27/21 17:45 Urine Sodium 46 mmol/L 07/27/21 17:45 Urine Total Protein 30 mg/dL (5-11.8) H 07/27/21 17:45 Nasal Screen MRSA (PCR) Positive (Negative) 07/26/21 16:30 Proteinase 3 (PR3) Ab <1.0 AI (<1.0) 07/27/21 18:17 Myeloperoxidase Ab <1.0 AI (<1.0) 07/27/21 18:17 Complement C3 149 mg/dL (82-185) 07/27/21 18:17 Coronavirus (PCR) Negative (Negative) 07/27/21 09:00 SARS-CoV-2 (PCR) Negative (Negative) 07/31/21 13:05 Hepatitis A IgM Ab Non-reactive (NonReactive) 07/27/21 18:17 Hep Bs Antigen Non-reactive (Negative) 07/27/21 18:17 Hep B Core IgM Ab Non-reactive (NonReactive) 07/27/21 18:17 Hepatitis C Antibody Non-reactive (NonReactive) 07/27/21 18:17 Good/IV: Voiding Method Indwelling Catheter Active Medications - Current Medications Current Medications: Generic Name Dose Route Start Last Admin Trade Name Freq PRN Reason Stop Dose Admin Acetaminophen 650 mg 07/25/21 16:00 Acetaminophen 325 Mg Tab PO Q4H PRN Pain MILD(1-3)/Fever >100.5/RAYO Albuterol/Ipratropium 1 ampul 07/26/21 16:00 08/01/21 07:43 Ipratropium/Albuterol Sulfate 3 Ml Ampul.Neb IH 1 ampul Q8HRT BLANCA Administration Amlodipine Besylate 10 mg 07/28/21 10:00 07/31/21 09:36 Amlodipine 5 Mg Tab FEEDTUBE 10 mg QDAY BLANCA Administration Lipase/Protease/Amylase 1 each 07/26/21 14:56 Lipase 10,500/Protease 25,000/Amylase 43,750 (Units) Dr Zambrano FEEDTUBE PRN PRN For Clogged Feeding Tube Dextrose 50 ml 07/26/21 12:22 Dextrose 50% In Water (25gm) 50 Ml Syringe IV Q30MIN PRN Hypoglycemia Protocol Famotidine 10 mg 07/27/21 10:00 07/31/21 22:27 Famotidine 10 Mg Tab FEEDTUBE 10 mg BID BLANCA Administration Heparin Sodium (Porcine) 5,000 unit 07/25/21 16:00 07/31/21 22:27 Heparin 5,000 Unit/1 Ml Vial SUB-Q 5,000 unit Q12HR BLANCA Administration Hydralazine HCl 25 mg 07/30/21 14:00 08/01/21 05:27 Hydralazine 25 Mg Tab PO 25 mg Q8HR BLANCA Administration Hydralazine HCl 15 mg 07/30/21 07:44 Hydralazine 20 Mg/1 Ml Inj IV Q6H PRN Blood Pressure Insulin Human Regular 0 units 07/26/21 12:00 08/01/21 05:26 Insulin Regular, Human 100 Units/1 Ml SUB-Q Not Given Q6HR [facility] Protocol Labetalol HCl 100 mg 07/28/21 10:00 07/31/21 22:32 Labetalol 100 Mg Tab FEEDTUBE 100 mg BID BLANCA Administration Midazolam HCl 2 mg 07/30/21 14:34 Midazolam 2 Mg/2 Ml Inj IV 08/01/21 14:33 Q2H PRN Agitation Ondansetron HCl 4 mg 07/25/21 16:00 Ondansetron 4 Mg/2 Ml Inj IV Q8H PRN Nausea And Vomiting Oxycodone/Acetaminophen 1 tab 07/27/21 12:27 07/30/21 20:45 Oxycodone /Acetaminophen 5-325mg Tab PO 1 tab Q6H PRN Administration Pain, Moderate (4-6) Polyethylene Glycol 17 gm 07/26/21 17:04 Polyethylene Glycol 3350 17 Gm Powder PO QDAY PRN Constipation Senna/Docusate Sodium 1 tab 07/26/21 22:00 07/31/21 22:27 Sennosides/Docusate Sodium 8.6/50 Mg Tab PO 1 tab QHS BLANCA Administration Simple Syrup 15 ml 07/26/21 14:56 Simple Syrup 15 Ml FEEDTUBE PRN PRN Hypoglycemia Simple Syrup 30 ml 07/26/21 14:56 Simple Syrup 15 Ml FEEDTUBE PRN PRN Hypoglycemia Sodium Bicarbonate 325 mg 07/26/21 14:56 Sodium Bicarbonate 325 Mg Tab FEEDTUBE PRN PRN For Clogged Feeding Tube Sodium Chloride 10 ml 07/25/21 22:00 07/31/21 22:27 Sodium Chloride 0.9% 10 Ml Flush Syringe IV 10 ml BID BLANCA Administration Sodium Chloride 10 ml 07/25/21 16:00 07/26/21 00:08 Sodium Chloride 0.9% 10 Ml Flush Syringe IV 10 ml PRN PRN Administration LINE FLUSH Nutrition/Malnutrition Assess - Dietary Evaluation Nutrition/Malnutrition Findings: Nutrition Notes Start: 07/26/21 14:26 Freq: Status: Active Protocol: Document 07/31/21 14:46 BRIAN (Rec: 07/31/21 14:52 BRIAN [id number]) Nutrition Notes Initial or Follow up Reassessment Current Diagnosis Acute Kidney Injury,Diabetes, Hypertension,Respiratory Failure Other Pertinent Diagnosis Pneu Current Diet TF - Glucerna 1.2 at 55ml/hr Labs/Tests BUN 30 Cr 2.1 Pertinent Medications Reviewed Height 6 ft Weight 110 kg [place] Body Weight (kg) 80.90 BMI 32.8 Weight change and time frame Wt change noted Weight Status Obese Subjective/Other Information Pt now on T-piece with 35% FiO2. Per RN, he is tolerating TF at goal rate of 55ml/hr. Per nephrology note on yesterday, no need for dialysis at this time. Percent of energy/protein needs met: 68% energy 100% pro Burn Absent Trauma Absent #1 Nutrition Diagnosis Swallowing difficulty Diagnosis Progress(for reassessment Continues documentation) Is patient on ventilator? No Is Patient Ambulatory and/or Out of Bed No REE-([facility]-confined to bed) 3063.328 Calculation Used for Recommendations 65-70% REE Additional Notes Energy needs: 0243-6759 kcal/ day Pro needs 0.8-1.2g/kg adjBW: 76-115g/day Fluid needs 1ml/kcal Nutrition Intervention Nutrition Support: Continue Glucerna 1.2 at 55ml/ hr with 85ml water flush q4h. Kcal 1,584 Protein (gm) 79 Carbohydrates (gm) 151 Fat (gm) 79 Fluid (mL) 1,063 Fiber (gm) 21 Goal #1 TF tolerance Goal #2 TF to meet 65-70% energy and at least 75% pro needs Follow-Up By: 08/07/21 Additional Comments F/U: stable TF, wt, renal function
[2021-07-27 18:12] LABS: Creatinine,Urine 105.6 mg/dL (0.1-20.0); Protein/Creatinine Ratio,Urine 0.28
--- NOTE | 2021-07-27 18:39 | Ultrasound Report ---
Renal ultrasound INDICATION: Acute renal failure FINDINGS: Both kidneys are 13 cm in length and are mildly echogenic. There are several cysts within t he left kidney largest measuring 3 cm within the lower pole that appears minimally complex. Normal re nal cortical thickness bilaterally IMPRESSION: Echogenic kidneys which can be seen with medical renal disease. No hydronephrosis. Signer Name: Macho Bobo MD Signed: 07/27/2021 6:34 PM Workstation Name: [id number]
[2021-07-27 19:40] LABS: Hepatitis B Surface Antigen Non-Reactive (Negative); Hepatitis C Virus Antibody Non-Reactive (NonReactive)
[2021-07-27] MEDS: SENNOSIDES/DOCUSATE SODIUM 8.6/50 MG TAB PO SCH (22:00)
[2021-07-28] MEDS: INSULIN REGULAR, HUMAN 100 UNITS/1 ML SUB-Q SCH ×4 (00:40→17:52)
[2021-07-28] MEDS: ACETYLCYSTEINE 20% 200 MG/1 ML *FOR INHALATION USE INHALATION SCH ×3 (00:48→16:30)
[2021-07-28] MEDS: IPRATROPIUM/ALBUTEROL SULFATE 3 ML AMPUL.NEB IH SCH ×4 (00:48→23:47)
[2021-07-28] MEDS: hydrALAZINE 20 MG/1 ML INJ IV PRN (02:40)
[2021-07-28 05:11] LABS: Hematocrit 34.4 % (35.5-45.6); Mean Corpuscular HGB Conc 32 % (32-34); Mean Corpuscular Volume 85 fl (84-94); Platelet Count 313 K/mm3 (140-440); Red Blood Count 4.07 M/mm3 (3.65-5.03)
[2021-07-28 05:22] LABS: Calcium 9.4 mg/dL (8.4-10.2)
[2021-07-28] MEDS: CEFEPIME/NS 2 GM/100 ML 2 GM/100 ML BAG IV SCH ×2 (05:42→17:52)
[2021-07-28] MEDS: amLODIPine 5 MG TAB FEEDTUBE SCH (09:35)
[2021-07-28] MEDS: HEPARIN 5,000 UNIT/1 ML VIAL SUB-Q SCH ×2 (09:35→22:28)
[2021-07-28] MEDS: FAMOTIDINE 10 MG TAB FEEDTUBE SCH ×2 (09:36→22:28)
[2021-07-28] MEDS ORDERED: amLODIPine 5 MG TAB PO SCH (10:00)
--- NOTE | 2021-07-28 10:48 | XRay Report ---
. CHEST - 1 VIEW INDICATION: f/u patient on vent COMPARISON: 2 days prior FINDINGS: SUPPORT DEVICES: Stable support device positioning. HEART: Stable cardiomediastinal silhouette. LUNGS/PLEURA: Lungs are essentially clear. ADDITIONAL FINDINGS: None. IMPRESSION: Essentially clear lungs. Signer Name: Ty Callahan MD Signed: 07/28/2021 10:43 AM Workstation Name: [id number]
--- NOTE | 2021-07-28 12:03 | Progress Note ---
Assessment and Plan Cultures: Blood culture no growth so far Urine culture no growth so far A/P: 61-year-old man past medical history diabetes, chronic respiratory failure now with: #Acute on chronic respiratory failure improving bilateral opacities from pr evious when he completed 2 weeks of high-dose cefazolin due to his weight. This admission negative MRSA PCR, negative COVID PCR. #Diabetes: tight glycemic control for best outcomes. #MONIK: Renally dose medications. Recs: -Continue cefepime for now -Could DC on Levaquin 750mg q48h to complete 10 days of antibiotics. -Monitor white count Thank you for the consult, we will continue to follow. Nayan Goins MD [facility] O: [phone] F: [phone] Subjective Date of service: 07/28/21 Principal diagnosis: Ac and ch hypoxemic and hypercapnic Resp Failure; HCAP; AE- CHF; s/p Trach Interval history: Afebrile, normal white count. Imaging personally reviewed: Chest x-ray: Clear lungs Objective - Exam Narrative Exam: Physical Exam: Constitutional: Alert, cooperative. No acute distress Head, Ears, Nose: Normocephalic, atraumatic. External ears, nose normal Eyes: Conjunctivae/corneas clear. No icterus. No ptosis. Neck: Supple, no meningeal signs +trach Oral: dentition fair, no thrush Cardiovascular: S1, S2 normal. Respiratory: Good air entry, clear to auscultation bilaterally GI: Soft, non-tender; bowel sounds normal. No peritoneal signs. Musculoskeletal: No pedal edema, no cyanosis. Skin: No rash or abscess Hem/Lymphatic: No palpable cervical or supraclavicular nodes. No lymphangitis Psych: Mood ok. Affect normal Neurological: Awake, alert, oriented. No gross abnormality - Constitutional Vitals: Vital Signs Temp Pulse Resp BP Pulse Ox 98.2 F 80 20 171/85 99 07/28/21 08:00 07/28/21 10:00 07/28/21 08:15 07/28/21 09:36 07/28/21 08:05 Temperature -Last 24 Hours Temperature 98.2 F Temperature 97.5 F Temperature 97.6 F Temperature 97.8 F - Labs CBC & Chem 7: 07/28/21 04:32 07/28/21 04:32 Labs: Abnormal lab results 07/26/21 07/27/21 07/27/21 Range/Units 17:18 15:57 17:45 Hgb (11.8-15.2) gm/dl Hct (35.5-45.6) % MCH (28-32) pg RDW (13.2-15.2) % Sodium (137-145) mmol/L BUN (9-20) mg/dL Creatinine (0.8-1.3) mg/dL Glucose (75-100) mg/dL POC Glucose 111 H (70-105) mg/dL C-Reactive Protein 2.40 H (0.00-1.30) mg/dL Urine Creatinine 106.0 H (0.1-20.0) mg/dL Urine Total Protein (5-11.8) mg/dL 07/27/21 07/27/21 07/28/21 Range/Units 17:45 17:52 04:32 Hgb (11.8-15.2) gm/dl Hct (35.5-45.6) % MCH (28-32) pg RDW (13.2-15.2) % Sodium 135 L (137-145) mmol/L BUN 40 H (9-20) mg/dL Creatinine 2.3 H (0.8-1.3) mg/dL Glucose 124 H (75-100) mg/dL POC Glucose 114 H (70-105) mg/dL C-Reactive Protein (0.00-1.30) mg/dL Urine Creatinine 105.6 H (0.1-20.0) mg/dL Urine Total Protein 30 H (5-11.8) mg/dL 07/28/21 07/28/21 Range/Units 04:32 11:19 Hgb 11.0 L (11.8-15.2) gm/dl Hct 34.4 L (35.5-45.6) % MCH 27 L (28-32) pg RDW 16.0 H (13.2-15.2) % Sodium (137-145) mmol/L BUN (9-20) mg/dL Creatinine (0.8-1.3) mg/dL Glucose (75-100) mg/dL POC Glucose 117 H (70-105) mg/dL C-Reactive Protein (0.00-1.30) mg/dL Urine Creatinine (0.1-20.0) mg/dL Urine Total Protein (5-11.8) mg/dL
--- NOTE | 2021-07-28 12:39 | Progress Note ---
Assessment and Plan Impression * Acute kidney injury * Respiratory failure * Hypertension * Diabetes * Proteinuria * Cardiomyopathy * Urinary retention Recommendations * Patient had a serum creatinine of 0.8 on admission. Etiology of acute kidney injury unclear at this time. * Patient clinically does appear to be volume overloaded. Continue diuretics as needed * His urine shows 4+ dipstick protein with associated microhematuria as well as pyuria . patient does have pulmonary infiltrates. Need to rule out pulmonary renal syndrome. Follow-up results of vasculitis work-up * Patient does have some urinary retention. Continue Good catheter for now. * Fractional excretion of sodium is 0.7% and urine protein creatinine ratio is approximately 300 mg/g . Urine is negative for eosinophils * He may have some degree of underlying diabetic nephropathy * Avoid nephrotoxins * Broad-spectrum antibiotic as per ICU team * Monitor fluid status and electrolytes closely * Patient is currently nonoliguric. No urgent indication for dialysis today Subjective Date of service: 07/28/21 Principal diagnosis: Ac and ch hypoxemic and hypercapnic Resp Failure; HCAP; AE- CHF; s/p Trach Interval history: Patient is comfortable. Remains on the ventilator on 30% FiO2. Oxygen saturation is 100%. Patient had approximately 550 cc of urine in his bladder and a Good catheter has been placed Objective - Vital Signs Vital signs: Vital Signs - 12hr 07/28/21 07/28/21 07/28/21 00:40 00:48 02:40 Temperature Pulse Rate 93 H 100 H Pulse Rate [ 100 H Bilateral Throughout] Pulse Rate [ 98 H Bilateral] Respiratory 0 L Rate Respiratory 20 Rate [Bilateral Throughout] Respiratory 20 Rate [Bilateral ] Blood Pressure 147/80 170/92 O2 Sat by Pulse 99 Oximetry O2 Sat by Pulse 99 Oximetry [ Assessment] 07/28/21 07/28/21 07/28/21 04:00 05:00 08:00 Temperature 97.5 F L 98.2 F Pulse Rate 97 H Pulse Rate [ Bilateral Throughout] Pulse Rate [ Bilateral] Respiratory 1 L Rate Respiratory Rate [Bilateral Throughout] Respiratory Rate [Bilateral ] Blood Pressure 157/77 O2 Sat by Pulse 100 100 100 Oximetry O2 Sat by Pulse Oximetry [ Assessment] 07/28/21 07/28/21 07/28/21 08:05 08:15 09:35 Temperature Pulse Rate 99 H 96 H Pulse Rate [ 91 H Bilateral Throughout] Pulse Rate [ 99 H Bilateral] Respiratory Rate Respiratory 20 Rate [Bilateral Throughout] Respiratory 20 Rate [Bilateral ] Blood Pressure 156/83 171/85 O2 Sat by Pulse 99 Oximetry O2 Sat by Pulse 99 Oximetry [ Assessment] 07/28/21 07/28/21 07/28/21 09:36 10:00 12:00 Temperature 98.5 F Pulse Rate 97 H 80 Pulse Rate [ Bilateral Throughout] Pulse Rate [ Bilateral] Respiratory Rate Respiratory Rate [Bilateral Throughout] Respiratory Rate [Bilateral ] Blood Pressure 171/85 O2 Sat by Pulse Oximetry O2 Sat by Pulse Oximetry [ Assessment] - General Appearance General appearance: well-developed, well-nourished, appears stated age EENT: PERRL, mucous membranes moist Neck: other (Tracheostomy tube in place. Connected to the ventilator) Respiratory: Present: Ronchi (Few scattered rhonchi) Cardiology: regular, normal heart rate Gastrointestinal: normal, normoactive bowel sounds Integumentary: other (1+ edema) - Lab 07/28/21 04:32 07/28/21 04:32 Most recent lab results ABG pH 7.370 pH Units (7.350-7.450) 07/27/21 10:30 ABG pCO2 53.4 mm Hg 07/27/21 10:30 ABG pO2 76.9 mm Hg (80.0-90.0) L 07/27/21 10:30 ABG HCO3 30.2 mmol/L (20.0-26.0) H 07/27/21 10:30 ABG O2 Saturation 96.6 % (95.0-99.0) 07/27/21 10:30 Calcium 9.4 mg/dL (8.4-10.2) 07/28/21 04:32 Urine Creatinine 105.6 mg/dL (0.1-20.0) H 07/27/21 17:45 Urine Creatinine 106.0 mg/dL (0.1-20.0) H 07/27/21 17:45 Urine Sodium 46 mmol/L 07/27/21 17:45 Urine Total Protein 30 mg/dL (5-11.8) H 07/27/21 17:45 Medications & Allergies - Medications Allergies/Adverse Reactions: Allergies No Known Allergies Allergy (Verified 07/25/21 11:02) Home Medications: Home Medications Medication Instructions Recorded Confirmed Last Taken Type No Known Home Medications [No 03/11/21 03/11/21 Unknown History Reported Home Medications] Apixaban [Eliquis] 5 mg FEEDTUBE Q12HR 30 Days #60 05/02/21 Unknown Rx tablet Doxazosin [Cardura] 1 mg FEEDTUBE BID 30 Days #60 05/02/21 Unknown Rx tablet Famotidine [Pepcid] 20 mg FEEDTUBE BID 30 Days #60 05/02/21 Unknown Rx tablet Glycopyrrolate 2 mg PO TID 30 Days #90 tablet 05/02/21 Unknown Rx Insulin Glargine [Lantus VIAL] 18 units SUB-Q QHS 30 Days #2 vial 05/02/21 Unknown Rx Metoprolol [Lopressor TAB] 12.5 mg FEEDTUBE BID 30 Days #60 05/02/21 Unknown Rx tablet amLODIPine 10 mg FEEDTUBE DAILY 30 Days #30 05/02/21 Unknown Rx tablet cephALEXin [Keflex] 500 mg PO Q8HR 2 Days #6 cap 05/02/21 Unknown Rx hydrALAZINE [Apresoline TAB] 50 mg FEEDTUBE Q8HR 30 Days #90 05/02/21 Unknown Rx tablet Active Medications: Generic Name Dose Route Start Last Admin Trade Name Freq PRN Reason Stop Dose Admin Acetaminophen 650 mg 07/25/21 16:00 Acetaminophen 325 Mg Tab PO Q4H PRN Pain MILD(1-3)/Fever >100.5/RAYO Acetylcysteine 200 mg 07/26/21 00:00 07/28/21 08:05 Acetylcysteine 20% 200 Mg/1 Ml *For Inhalation Use* INHALATION 07/28/21 16:01 Not Given Q8HRT BLANCA Albuterol/Ipratropium 1 ampul 07/26/21 16:00 07/28/21 08:05 Ipratropium/Albuterol Sulfate 3 Ml Ampul.Neb IH 1 ampul Q8HRT BLANCA Administration Amlodipine Besylate 10 mg 07/28/21 10:00 07/28/21 09:35 Amlodipine 5 Mg Tab FEEDTUBE 10 mg QDAY BLANCA Administration Lipase/Protease/Amylase 1 each 07/26/21 14:56 Lipase 10,500/Protease 25,000/Amylase 43,750 (Units) Dr Zambrano FEEDTUBE PRN PRN For Clogged Feeding Tube Dextrose 50 ml 07/26/21 12:22 Dextrose 50% In Water (25gm) 50 Ml Syringe IV Q30MIN PRN Hypoglycemia Protocol Famotidine 10 mg 07/27/21 10:00 07/28/21 09:36 Famotidine 10 Mg Tab FEEDTUBE 10 mg BID BLANCA Administration Heparin Sodium (Porcine) 5,000 unit 07/25/21 16:00 07/28/21 09:35 Heparin 5,000 Unit/1 Ml Vial SUB-Q 5,000 unit Q12HR BLANCA Administration Hydralazine HCl 20 mg 07/27/21 06:00 07/28/21 02:40 Hydralazine 20 Mg/1 Ml Inj IV 20 mg Q6H PRN Administration Blood Pressure Cefepime HCl 2 gm in 100 mls @ 200 mls/hr 07/27/21 18:00 07/28/21 05:42 Cefepime/Ns 2 Gm/100 Ml IV 200 mls/hr Q12H BLANCA Administration Protocol Insulin Human Regular 0 units 07/26/21 12:00 07/28/21 11:24 Insulin Regular, Human 100 Units/1 Ml SUB-Q Not Given Q6HR [facility] Protocol Labetalol HCl 100 mg 07/28/21 10:00 07/28/21 09:36 Labetalol 100 Mg Tab FEEDTUBE 100 mg BID BLANCA Administration Ondansetron HCl 4 mg 07/25/21 16:00 Ondansetron 4 Mg/2 Ml Inj IV Q8H PRN Nausea And Vomiting Oxycodone/Acetaminophen 1 tab 07/27/21 12:27 Oxycodone /Acetaminophen 5-325mg Tab PO Q6H PRN Pain, Moderate (4-6) Polyethylene Glycol 17 gm 07/26/21 17:04 Polyethylene Glycol 3350 17 Gm Powder PO QDAY PRN Constipation Senna/Docusate Sodium 1 tab 07/26/21 22:00 07/27/21 22:00 Sennosides/Docusate Sodium 8.6/50 Mg Tab PO 1 tab QHS BLANCA Administration Simple Syrup 15 ml 07/26/21 14:56 Simple Syrup 15 Ml FEEDTUBE PRN PRN Hypoglycemia Simple Syrup 30 ml 07/26/21 14:56 Simple Syrup 15 Ml FEEDTUBE PRN PRN Hypoglycemia Sodium Bicarbonate 325 mg 07/26/21 14:56 Sodium Bicarbonate 325 Mg Tab FEEDTUBE PRN PRN For Clogged Feeding Tube Sodium Chloride 10 ml 07/25/21 22:00 07/28/21 09:13 Sodium Chloride 0.9% 10 Ml Flush Syringe IV 10 ml BID BLANCA Administration Sodium Chloride 10 ml 07/25/21 16:00 07/26/21 00:08 Sodium Chloride 0.9% 10 Ml Flush Syringe IV 10 ml PRN PRN Administration LINE FLUSH
--- NOTE | 2021-07-28 13:06 | Progress Note ---
Assessment and Plan Acute and chronic hypoxemic and hypercapnic Respiratory Failure 2/2 HCAP on MVS HCAP AE-CHF exacerbation s/p Tracheostomy Oropharyngeal dysphagia s/p PEG h/o Ischemic cardiomyopathy - reduced set rate to 12/min and transitioned to PRVC/AC mode - FENA is prerenal - nephrology input appreciated; will follow recommendations but pulmonary edema has resolved so will try and avoid negative fluid volume at this point - AB's per ID rec's (Cefepime) - follow tracheal aspirate (nasal MRSA screen was positive) - continue care as below otherwise; - continue current PCV with inspiratory presure of 30 cm H2O for now - repeat ABG in am - continue Daily SAT and SBT assessment as tolerated - continue to wean supplemental oxygen for target O2 sat's > 90% acutely - VAP bundle addressed - continue lung protective strategies - continue bronchodilators with pulmonary hygiene per RT - wean per pulmonary driven protocols otherwise - continue accuchecks with glycemic control per SSI (While critically ill target blood glucose of 140-180 mg/dL; avoid hypoglycemia) - sedation prn for target RASS 0 to -1 - avoid nephrotoxins, renally dose all medications - continue to avoid benzodiazepine's, reduce the possibility of delirium - prn analgesia per CPOT score - Maintenance of sleep-wake cycle, avoid delirium - continue enteral nutritional support at goal rate as tolerated - G.I. & VTE prophylaxis - PT/OT/ROM exercises - continue mobility protocols for pressure ulcer prophylaxis - Monitor hemodynamics closely - continue other care per attending / other consultants - discharge planning ongoing concurrently COVID SPECIFIC INTERVENTIONS - COVID-19 PCR negative .... Re-evaluate in am & prn CONDITION: CRITICAL PROGNOSIS: GUARDED CODE STATUS: FULL CODE The high probability of a clinically significant, sudden or life-threatening deterioration of the [respiratory, cardiovascular & neurologic] system(s) required my full and direct attention, intervention and personal management. The aggregate critical care time was [32] minutes without overlap. Time includes spent on; [x] Data Review and interpretation [x] Patient assessment and monitoring of vital signs [x] Documentation [x] Medication orders and management Subjective Date of service: 07/28/21 Principal diagnosis: Ac and ch hypoxemic and hypercapnic Resp Failure; HCAP; AE- CHF; s/p Trach Interval history: Patient is seen today for: Acute and chronic hypoxemic and hypercapnic Respiratory Failure; HCAP; AE-CHF; s/p Tracheostomy; H/O Ischemic cardiomyopathy Seen and examined at bedside; 24hour events reviewed; nursing and respiratory care staff consulted; no adverse overnight events reported to me; resting peacefully in bed; remains on MVS; ABG pending; seen by ID and continued on Ce fepime; tolerating reduced set minute ventilation very well but remains on PCV mode Objective Vital Signs - 12hr 07/28/21 07/28/21 07/28/21 02:40 04:00 05:00 Temperature 97.5 F L Pulse Rate 100 H 97 H Pulse Rate [ Bilateral Throughout] Pulse Rate [ Bilateral] Respiratory 1 L Rate Respiratory Rate [Bilateral Throughout] Respiratory Rate [Bilateral ] Blood Pressure 170/92 157/77 O2 Sat by Pulse 100 100 Oximetry O2 Sat by Pulse Oximetry [ Assessment] 07/28/21 07/28/21 07/28/21 08:00 08:05 08:15 Temperature 98.2 F Pulse Rate 99 H Pulse Rate [ 91 H Bilateral Throughout] Pulse Rate [ 99 H Bilateral] Respiratory Rate Respiratory 20 Rate [Bilateral Throughout] Respiratory 20 Rate [Bilateral ] Blood Pressure 156/83 O2 Sat by Pulse 100 99 Oximetry O2 Sat by Pulse 99 Oximetry [ Assessment] 07/28/21 07/28/21 07/28/21 09:35 09:36 10:00 Temperature Pulse Rate 96 H 97 H 80 Pulse Rate [ Bilateral Throughout] Pulse Rate [ Bilateral] Respiratory Rate Respiratory Rate [Bilateral Throughout] Respiratory Rate [Bilateral ] Blood Pressure 171/85 171/85 O2 Sat by Pulse Oximetry O2 Sat by Pulse Oximetry [ Assessment] 07/28/21 07/28/21 12:00 12:40 Temperature 98.5 F Pulse Rate 100 H Pulse Rate [ Bilateral Throughout] Pulse Rate [ Bilateral] Respiratory Rate Respiratory Rate [Bilateral Throughout] Respiratory Rate [Bilateral ] Blood Pressure 148/82 O2 Sat by Pulse 100 Oximetry O2 Sat by Pulse Oximetry [ Assessment] Constitutional: no acute distress, other (atraumatic, normocephalic, trach to vent with mild ventilator dyssynchrony) Eyes: non-icteric ENT: oropharynx moist, other (midline tracheostomy) Neck: supple, no lymphadenopathy, no JVD Effort: mildly labored Ascultation: Bilateral: diminished breath sounds, rhonchi (scant) Percussion: Bilateral: not dull Cardiovascular: regular rate and rhythm, other (S1,S2) Gastrointestinal: normoactive bowel sounds, soft, non-tender, non-distended (protuberant), other (PEG) Integumentary: normal Extremities: no cyanosis, pulses normal, no ischemia or petechiae, edema Neurologic: non-focal exam (grossly), pupils equal and round, CN II-XII normal, other (moves all extremities) Psychiatric: mood appropriate, affect normal CBC and BMP: 07/28/21 04:32 07/28/21 04:32 ABG, PT/INR, D-dimer: ABG ABG pH 7.370 pH Units (7.350-7.450) 07/27/21 10:30 ABG pCO2 53.4 mm Hg 07/27/21 10:30 ABG pO2 76.9 mm Hg (80.0-90.0) L 07/27/21 10:30 ABG O2 Saturation 96.6 % (95.0-99.0) 07/27/21 10:30 Abnormal lab findings: Abnormal Labs 07/25/21 07/25/21 07/25/21 11:19 21:50 Unknown WBC 18.1 H Hgb Hct MCH RDW 16.2 H Seg Neuts % (Manual) Lymphocytes % (Manual) Seg Neutrophils # Man 12.1 H Lymphocytes # (Manual) ABG pH 6.917 L* ABG pO2 331.8 H ABG HCO3 39.3 H ABG O2 Saturation 99.4 H ABG Base Excess ABG Hemoglobin 12.1 L Oxyhemoglobin Sodium Potassium Chloride BUN Creatinine Glucose POC Glucose Lactic Acid C-Reactive Protein Albumin Urine WBC (Auto) 26.0 H Urine Creatinine Urine Total Protein 07/25/21 07/25/21 07/25/21 Unknown Unknown Unknown WBC Hgb Hct MCH RDW Seg Neuts % (Manual) Lymphocytes % (Manual) Seg Neutrophils # Man Lymphocytes # (Manual) ABG pH 7.029 L* ABG pO2 97.5 H ABG HCO3 37.2 H ABG O2 Saturation 93.5 L ABG Base Excess ABG Hemoglobin 12.7 L Oxyhemoglobin 91.7 L Sodium 129 L Potassium Chloride 90.1 L BUN 8 L Creatinine Glucose 258 H POC Glucose Lactic Acid 4.90 H* C-Reactive Protein Albumin 3.8 L Urine WBC (Auto) Urine Creatinine Urine Total Protein 07/25/21 07/26/21 07/26/21 Unknown 00:10 03:50 WBC 15.5 H Hgb Hct MCH RDW 15.4 H Seg Neuts % (Manual) 96.0 H Lymphocytes % (Manual) 3.0 L Seg Neutrophils # Man 14.9 H Lymphocytes # (Manual) 0.5 L ABG pH 7.217 L ABG pO2 162.9 H ABG HCO3 34.3 H ABG O2 Saturation ABG Base Excess 4.0 H ABG Hemoglobin 12.5 L Oxyhemoglobin Sodium Potassium Chloride BUN Creatinine Glucose POC Glucose 158 H Lactic Acid C-Reactive Protein Albumin Urine WBC (Auto) Urine Creatinine Urine Total Protein 07/26/21 07/26/21 07/26/21 03:50 04:30 07:44 WBC Hgb Hct MCH RDW Seg Neuts % (Manual) Lymphocytes % (Manual) Seg Neutrophils # Man Lymphocytes # (Manual) ABG pH 7.170 L* ABG pO2 65.5 L ABG HCO3 33.9 H ABG O2 Saturation ABG Base Excess ABG Hemoglobin 12.0 L Oxyhemoglobin 93.5 L Sodium 132 L Potassium 6.0 H D 5.6 H Chloride 93.2 L BUN Creatinine Glucose 171 H POC Glucose Lactic Acid C-Reactive Protein Albumin 3.7 L Urine WBC (Auto) Urine Creatinine Urine Total Protein 07/26/21 07/26/21 07/27/21 12:34 17:18 04:54 WBC 11.9 H Hgb 11.1 L Hct 34.5 L MCH 27 L RDW 15.5 H Seg Neuts % (Manual) Lymphocytes % (Manual) Seg Neutrophils # Man Lymphocytes # (Manual) ABG pH 7.286 L ABG pO2 100.0 H ABG HCO3 31.4 H ABG O2 Saturation ABG Base Excess 3.2 H ABG Hemoglobin 11.8 L Oxyhemoglobin Sodium Potassium Chloride BUN Creatinine Glucose POC Glucose 111 H Lactic Acid C-Reactive Protein Albumin Urine WBC (Auto) Urine Creatinine Urine Total Protein 07/27/21 07/27/21 07/27/21 04:54 10:30 15:57 WBC Hgb Hct MCH RDW Seg Neuts % (Manual) Lymphocytes % (Manual) Seg Neutrophils # Man Lymphocytes # (Manual) ABG pH ABG pO2 76.9 L ABG HCO3 30.2 H ABG O2 Saturation ABG Base Excess 3.9 H ABG Hemoglobin 11.2 L Oxyhemoglobin Sodium 136 L Potassium Chloride BUN 37 H Creatinine 2.2 H D Glucose POC Glucose Lactic Acid C-Reactive Protein 2.40 H Albumin Urine WBC (Auto) Urine Creatinine Urine Total Protein 07/27/21 07/27/21 07/27/21 17:45 17:45 17:52 WBC Hgb Hct MCH RDW Seg Neuts % (Manual) Lymphocytes % (Manual) Seg Neutrophils # Man Lymphocytes # (Manual) ABG pH ABG pO2 ABG HCO3 ABG O2 Saturation ABG Base Excess ABG Hemoglobin Oxyhemoglobin Sodium Potassium Chloride BUN Creatinine Glucose POC Glucose 114 H Lactic Acid C-Reactive Protein Albumin Urine WBC (Auto) Urine Creatinine 106.0 H 105.6 H Urine Total Protein 30 H 07/28/21 07/28/21 07/28/21 04:32 04:32 11:19 WBC Hgb 11.0 L Hct 34.4 L MCH 27 L RDW 16.0 H Seg Neuts % (Manual) Lymphocytes % (Manual) Seg Neutrophils # Man Lymphocytes # (Manual) ABG pH ABG pO2 ABG HCO3 ABG O2 Saturation ABG Base Excess ABG Hemoglobin Oxyhemoglobin Sodium 135 L Potassium Chloride BUN 40 H Creatinine 2.3 H Glucose 124 H POC Glucose 117 H Lactic Acid C-Reactive Protein Albumin Urine WBC (Auto) Urine Creatinine Urine Total Protein Chest x-ray: image reviewed (improved lung volumes and clear) Allied health notes reviewed: nursing
[2021-07-28 13:39] LABS: ABG Base Excess 7.1 mmol/L (-2.0-3.0); ABG HCO3 32.7 mmol/L (20.0-26.0); ABG Methemoglobin 0.6 % (0.0-1.5); ABG Oxygen Saturation 97.6 % (95.0-99.0); ABG PCO2 51.9 mm Hg; ABG PH 7.418 pH Units (7.350-7.450); ABG PO2 103.7 mm Hg (80.0-90.0)
--- NOTE | 2021-07-28 15:06 | Progress Note ---
<FLORIANMARISABEL TrishLester - Last Filed: 07/28/21 15:13> Assessment and Plan Assessment and plan: This is a 61 year old male from a SNF with chronic hypoxic resp failure s/p trach, recent COVID 19 infection, ischemic cardiomyopathy IDDM, obesity admitted with acute on chronic resp failure, HAP, hyperkalemia, and lactic acidosis. Neuro: NAD -p.o. oxycodone prn -Reorientation as needed -Maintain sleep-wake cycle -CT head continued mild microvascular angiopathy without clear CT evidence of acute intercranial hemorrhage -Bilateral wrist restraints in place for safety Cardiac: h/o HTN -Cardiology consulted, appreciate recommendations -Blood pressure monitoring per protocol -03/09/21 Echocardiogram LVEF 60-65% -Amlodipine Labetalol Respiratory: Acute on chronic hypercapnic respiratory failure, s/p trach -CCM consulted, appreciate recommendations -A.m. vent settings: Pressure AC Rate 30, Peep 6, FiO2 50% -See RT notes for titration -A.m. ABG and CXR noted -VAP bundle -SPO2 monitoring GI: MO, moderate protein calorie malnutrition -24 hours -208 mL -PPI -NTR consulted for tube feedings -s/p PEG tube in place -BR: Senokat S : Hyponatremia, acute kidney injury, h/o urinary retention -Nephrology consulted, appreciate recommendations -Renal ultrasound pending -FeNa indicate prerenal -Monitor intake and output -Renally dose medications -Avoid nephrotoxic medications -Good catheter placed for urinary retention -Trend BMP ID: HAP -Infectious disease consulted, appreciate recommendations -COVID PCR (-) -MRSA PCR positive -07/25 BC x2 NGTD, UC NGTD -Antibiotic therapy with cefepime -f/u blood culture -Monitor WBC and temperature curve Endo: h/o DM -Avoid hypoglycemia -SSI -Accu-Cheks q. 6 Heme: Leukocytosis -Heparin subq -Trend CBC -Transfuse hemoglobin less than 7 -Monitor for signs of bleeding -SCDs to BLE while in bed The high probability of a clinically significant, sudden or life threatening deterioration of the [pulm] system(s) required my full and direct attention, intervention and personal management. The aggregate critical care time was [60] minutes. This time is in addition to time spent performing reported procedures but includes the following: [x] Data Review and interpretation [x] Patient assessment and monitoring of vital signs [x] Documentation [x] Medication orders and management Disposition Plan: icu Total Time Spent with Patient (Minutes): 60 History Interval history: This is a 61-year-old male who is a resident of a [facility] facility with chronic hypoxic respiratory failure s/p trach with vent dependency, recent COVID-19 infection, ischemic cardiomyopathy, type 2 diabetes mellitus, obesity who presented to the emergency department on 07/25 via EMS with chief complaints of respiratory distress from his mcc. In the emergency department patient was placed on the ventilator as he was tachypneic, dyspneic and did not improve after suctioning. Work-up in the emergency department revealed lactic acidosis, leukocytosis and CXR revealed possible retrocardiac pneumonia and started on antibiotics for HAP. Patient was admitted to the hospitalist service with consults to [facility] with acute on chronic respiratory failure and HAP. Hospital course to date: 07/26: Stopped Solu-Medrol, given For hyperkalemia, started on tube feedings. Remains on fentanyl and Mucomyst 07/27: Renal indices increased, patient did receive Lasix x1 yesterday. Nephrology was consulted. Urine lites and bilateral renal ultrasound pending. Infectious disease consulted. Bladder scan performed and Good catheter placed. COVID 19 PCR negative 07/28: No acute events reported overnight, worsening renal function-nephrology is on the case. Continue with cefepime per ID. Vent changes per CCM. Hospitalist Physical - Constitutional Vitals: Temp Pulse Resp BP Pulse Ox 98.5 F 100 H 20 148/82 100 07/28/21 12:00 07/28/21 12:40 07/28/21 08:15 07/28/21 12:40 07/28/21 12:40 General appearance: Present: no acute distress, obese - EENT Eyes: Present: PERRL, EOM intact ENT: hearing intact, clear oral mucosa, dentition normal - Neck Neck: Present: normal ROM - Respiratory Respiratory effort: normal Respiratory: bilateral: diminished - Cardiovascular Rhythm: regular Heart Sounds: Present: S1 & S2. Absent: systolic murmur, diastolic murmur - Extremities Extremities: no ischemia, pulses intact, pulses symmetrical, No edema, normal temperature, normal color Peripheral Pulses: within normal limits - Abdominal General gastrointestinal: soft, non-tender, non-distended, normal bowel sounds - Integumentary Integumentary: Present: warm, dry - Psychiatric Psychiatric: cooperative - Neurologic Neurologic: CNII-XII intact, no focal deficits, moves all extremities - Allied Health Allied health notes reviewed: nursing, RT, social work HEART Score - HEART Score Troponin: Troponin T < 0.010 ng/mL (0.00-0.029) 07/25/21 Unknown Results - Labs CBC & Chem 7: 07/28/21 04:32 07/28/21 04:32 Labs: Laboratory Last Values WBC 8.9 K/mm3 (4.5-11.0) 07/28/21 04:32 RBC 4.07 M/mm3 (3.65-5.03) 07/28/21 04:32 Hgb 11.0 gm/dl (11.8-15.2) L 07/28/21 04:32 Hct 34.4 % (35.5-45.6) L 07/28/21 04:32 MCV 85 fl (84-94) 07/28/21 04:32 MCH 27 pg (28-32) L 07/28/21 04:32 MCHC 32 % (32-34) 07/28/21 04:32 RDW 16.0 % (13.2-15.2) H 07/28/21 04:32 Plt Count 313 K/mm3 (140-440) 07/28/21 04:32 Lymph # (Auto) Executive Marketing Assistant 07/25/21 Unknown Add Manual Diff Complete 07/26/21 03:50 Total Counted 100 07/26/21 03:50 Seg Neuts % (Manual) 96.0 % (40.0-70.0) H 07/26/21 03:50 Band Neutrophils % 0 % 07/26/21 03:50 Lymphocytes % (Manual) 3.0 % (13.4-35.0) L 07/26/21 03:50 Reactive Lymphs % (Man) 0 % 07/26/21 03:50 Monocytes % (Manual) 1.0 % (0.0-7.3) 07/26/21 03:50 Eosinophils % (Manual) 0 % (0.0-4.3) 07/26/21 03:50 Basophils % (Manual) 0 % (0.0-1.8) 07/26/21 03:50 Metamyelocytes % 0 % 07/26/21 03:50 Myelocytes % 0 % 07/26/21 03:50 Promyelocytes % 0 % 07/26/21 03:50 Blast Cells % 0 % 07/26/21 03:50 Nucleated RBC % Not Reportable 07/26/21 03:50 Seg Neutrophils # Man 14.9 K/mm3 (1.8-7.7) H 07/26/21 03:50 Band Neutrophils # 0.0 K/mm3 07/26/21 03:50 Lymphocytes # (Manual) 0.5 K/mm3 (1.2-5.4) L 07/26/21 03:50 Abs React Lymphs (Man) 0.0 K/mm3 07/26/21 03:50 Monocytes # (Manual) 0.2 K/mm3 (0.0-0.8) 07/26/21 03:50 Eosinophils # (Manual) 0.0 K/mm3 (0.0-0.4) 07/26/21 03:50 Basophils # (Manual) 0.0 K/mm3 (0.0-0.1) 07/26/21 03:50 Metamyelocytes # 0.0 K/mm3 07/26/21 03:50 Myelocytes # 0.0 K/mm3 07/26/21 03:50 Promyelocytes # 0.0 K/mm3 07/26/21 03:50 Blast Cells # 0.0 K/mm3 07/26/21 03:50 WBC Morphology Not Reportable 07/26/21 03:50 Hypersegmented Neuts Not Reportable 07/26/21 03:50 Hyposegmented Neuts Not Reportable 07/26/21 03:50 Hypogranular Neuts Not Reportable 07/26/21 03:50 Smudge Cells Not Reportable 07/26/21 03:50 Toxic Granulation Not Reportable 07/26/21 03:50 Toxic Vacuolation Not Reportable 07/26/21 03:50 Dohle Bodies Not Reportable 07/26/21 03:50 Pelger-Huet Anomaly Not Reportable 07/26/21 03:50 Mely Rods Not Reportable 07/26/21 03:50 Platelet Estimate Consistent w auto 07/26/21 03:50 Clumped Platelets Not Reportable 07/26/21 03:50 Plt Clumps, EDTA Not Reportable 07/26/21 03:50 Large Platelets Not Reportable 07/26/21 03:50 Giant Platelets Not Reportable 07/26/21 03:50 Platelet Satelliting Not Reportable 07/26/21 03:50 Plt Morphology Comment Not Reportable 07/26/21 03:50 RBC Morphology Not Reportable 07/26/21 03:50 Dimorphic RBCs Not Reportable 07/26/21 03:50 Polychromasia Not Reportable 07/26/21 03:50 Hypochromasia Not Reportable 07/26/21 03:50 Poikilocytosis Not Reportable 07/26/21 03:50 Anisocytosis 1+ 07/26/21 03:50 Microcytosis Not Reportable 07/26/21 03:50 Macrocytosis Not Reportable 07/26/21 03:50 Spherocytes Few 07/26/21 03:50 Pappenheimer Bodies Not Reportable 07/26/21 03:50 Sickle Cells Not Reportable 07/26/21 03:50 Target Cells Not Reportable 07/26/21 03:50 Tear Drop Cells Not Reportable 07/26/21 03:50 Ovalocytes Not Reportable 07/26/21 03:50 Helmet Cells Not Reportable 07/26/21 03:50 Longo-Ashaway Bodies Not Reportable 07/26/21 03:50 [place] Rings Not Reportable 07/26/21 03:50 [place] Cells Not Reportable 07/26/21 03:50 Bite Cells Not Reportable 07/26/21 03:50 Crenated Cell Not Reportable 07/26/21 03:50 Elliptocytes Not Reportable 07/26/21 03:50 Acanthocytes (Spur) Not Reportable 07/26/21 03:50 Rouleaux Not Reportable 07/26/21 03:50 Hemoglobin C Crystals Not Reportable 07/26/21 03:50 Schistocytes Not Reportable 07/26/21 03:50 Malaria parasites Not Reportable 07/26/21 03:50 Shaheen Bodies Not Reportable 07/26/21 03:50 Hem Pathologist Commnt No 07/26/21 03:50 ABG pH 7.418 pH Units (7.350-7.450) 07/28/21 13:12 ABG pCO2 51.9 mm Hg 07/28/21 13:12 ABG pO2 103.7 mm Hg (80.0-90.0) H 07/28/21 13:12 ABG HCO3 32.7 mmol/L (20.0-26.0) H 07/28/21 13:12 ABG O2 Saturation 97.6 % (95.0-99.0) 07/28/21 13:12 ABG O2 Content 14.7 (0.0-44) 07/28/21 13:12 ABG Base Excess 7.1 mmol/L (-2.0-3.0) H 07/28/21 13:12 ABG Hemoglobin 10.8 gm/dl (14.0-18.0) L 07/28/21 13:12 ABG Carboxyhemoglobin 1.1 % (0.0-5.0) 07/28/21 13:12 ABG Methemoglobin 0.6 % (0.0-1.5) 07/28/21 13:12 Oxyhemoglobin 96.0 % (95.0-99.0) 07/28/21 13:12 FiO2 30 % 07/28/21 13:12 Sodium 135 mmol/L (137-145) L 07/28/21 04:32 Potassium 4.3 mmol/L (3.6-5.0) 07/28/21 04:32 Chloride 99.1 mmol/L (98-107) 07/28/21 04:32 Carbon Dioxide 28 mmol/L (22-30) 07/28/21 04:32 Anion Gap 12 mmol/L 07/28/21 04:32 BUN 40 mg/dL (9-20) H 07/28/21 04:32 Creatinine 2.3 mg/dL (0.8-1.3) H 07/28/21 04:32 Estimated GFR 29 ml/min 07/28/21 04:32 BUN/Creatinine Ratio 17 % 07/28/21 04:32 Glucose 124 mg/dL (75-100) H 07/28/21 04:32 POC Glucose 117 mg/dL (70-105) H 07/28/21 11:19 Hemoglobin A1c 5.9 % (4-6) 07/26/21 03:50 Lactic Acid 4.90 mmol/L (0.7-2.0) H* 07/25/21 Unknown Calcium 9.4 mg/dL (8.4-10.2) 07/28/21 04:32 Total Bilirubin 0.20 mg/dL (0.1-1.2) 07/26/21 03:50 AST 19 units/L (5-40) 07/26/21 03:50 ALT 11 units/L (7-56) 07/26/21 03:50 Alkaline Phosphatase 73 units/L (35-129) 07/26/21 03:50 Troponin T < 0.010 ng/mL (0.00-0.029) 07/25/21 Unknown C-Reactive Protein 2.40 mg/dL (0.00-1.30) H 07/27/21 15:57 Total Protein 8.2 g/dL (6.3-8.2) 07/26/21 03:50 Albumin 3.7 g/dL (3.9-5) L 07/26/21 03:50 Albumin/Globulin Ratio 0.8 % 07/26/21 03:50 Procalcitonin 0.77 ng/mL (<0.15) 07/27/21 15:57 Urine Color Yellow (Yellow) 07/25/21 11:19 Urine Turbidity Cloudy (Clear) 07/25/21 11:19 Urine pH 6.0 (5.0-7.0) 07/25/21 11:19 Ur Specific Ault 1.015 (1.003-1.030) 07/25/21 11:19 Urine Protein >500 mg/dL (Negative) 07/25/21 11:19 Urine Glucose (UA) 150 mg/dL (Negative) 07/25/21 11:19 Urine Ketones Neg mg/dL (Negative) 07/25/21 11:19 Urine Blood Neg (Negative) 07/25/21 11:19 Urine Nitrite Neg (Negative) 07/25/21 11:19 Urine Bilirubin Neg (Negative) 07/25/21 11:19 Urine Urobilinogen < 2.0 mg/dL (<2.0) 07/25/21 11:19 Ur Leukocyte Esterase Neg (Negative) 07/25/21 11:19 Urine WBC (Auto) 26.0 /HPF (0.0-6.0) H 07/25/21 11:19 Urine RBC (Auto) 53.0 /HPF (0.0-6.0) 07/25/21 11:19 U Epithel Cells (Auto) 7.0 /HPF (0-13.0) 07/25/21 11:19 Urine Bacteria (Auto) 4+ /HPF (Negative) 07/25/21 11:19 Hyaline Casts 21 /LPF 07/25/21 11:19 Urine Mucus Few /HPF 07/25/21 11:19 Urine Yeast (Budding) 2+ /HPF 07/25/21 11:19 Urine Sperm 3+ /HPF (INSIDE TRUCKER) 07/25/21 11:19 Urine Eosinophils None seen (None Seen) 07/27/21 17:45 Urine Creatinine 105.6 mg/dL (0.1-20.0) H 07/27/21 17:45 Urine Creatinine 106.0 mg/dL (0.1-20.0) H 07/27/21 17:45 Protein/Creatinin Ratio 0.28 07/27/21 17:45 Urine Sodium 46 mmol/L 07/27/21 17:45 Urine Total Protein 30 mg/dL (5-11.8) H 07/27/21 17:45 Nasal Screen MRSA (PCR) Positive (Negative) 07/26/21 16:30 Coronavirus (PCR) Negative (Negative) 07/27/21 09:00 Hepatitis A IgM Ab Non-reactive (NonReactive) 07/27/21 18:17 Hep Bs Antigen Non-reactive (Negative) 07/27/21 18:17 Hep B Core IgM Ab Non-reactive (NonReactive) 07/27/21 18:17 Hepatitis C Antibody Non-reactive (NonReactive) 07/27/21 18:17 Microbiology: Microbiology 07/25/21 11:44 Peripheral/Venous Blood Culture - Preliminary NO GROWTH AFTER 72 HOURS 07/25/21 11:23 Peripheral/Venous Blood Culture - Preliminary NO GROWTH AFTER 72 HOURS 07/25/21 11:19 Urine,Clean Catch Urine Culture - Final NO GROWTH AFTER 48 HOURS Good/IV: Voiding Method Condom Catheter Active Medications - Current Medications Current Medications: Generic Name Dose Route Start Last Admin Trade Name Freq PRN Reason Stop Dose Admin Acetaminophen 650 mg 07/25/21 16:00 Acetaminophen 325 Mg Tab PO Q4H PRN Pain MILD(1-3)/Fever >100.5/RAYO Acetylcysteine 200 mg 07/26/21 00:00 07/28/21 08:05 Acetylcysteine 20% 200 Mg/1 Ml *For Inhalation Use* INHALATION 07/28/21 16:01 Not Given Q8HRT BLANCA Albuterol/Ipratropium 1 ampul 07/26/21 16:00 07/28/21 08:05 Ipratropium/Albuterol Sulfate 3 Ml Ampul.Neb IH 1 ampul Q8HRT BLANCA Administration Amlodipine Besylate 10 mg 07/28/21 10:00 07/28/21 09:35 Amlodipine 5 Mg Tab FEEDTUBE 10 mg QDAY BLANCA Administration Lipase/Protease/Amylase 1 each 07/26/21 14:56 Lipase 10,500/Protease 25,000/Amylase 43,750 (Units) Dr Zambrano FEEDTUBE PRN PRN For Clogged Feeding Tube Dextrose 50 ml 07/26/21 12:22 Dextrose 50% In Water (25gm) 50 Ml Syringe IV Q30MIN PRN Hypoglycemia Protocol Famotidine 10 mg 07/27/21 10:00 07/28/21 09:36 Famotidine 10 Mg Tab FEEDTUBE 10 mg BID BLANCA Administration Heparin Sodium (Porcine) 5,000 unit 07/25/21 16:00 07/28/21 09:35 Heparin 5,000 Unit/1 Ml Vial SUB-Q 5,000 unit Q12HR BLANCA Administration Hydralazine HCl 20 mg 07/27/21 06:00 07/28/21 02:40 Hydralazine 20 Mg/1 Ml Inj IV 20 mg Q6H PRN Administration Blood Pressure Cefepime HCl 2 gm in 100 mls @ 200 mls/hr 07/27/21 18:00 07/28/21 05:42 Cefepime/Ns 2 Gm/100 Ml IV 200 mls/hr Q12H BLANCA Administration Protocol Insulin Human Regular 0 units 07/26/21 12:00 07/28/21 11:24 Insulin Regular, Human 100 Units/1 Ml SUB-Q Not Given Q6HR [facility] Protocol Labetalol HCl 100 mg 07/28/21 10:00 07/28/21 09:36 Labetalol 100 Mg Tab FEEDTUBE 100 mg BID BLANCA Administration Ondansetron HCl 4 mg 07/25/21 16:00 Ondansetron 4 Mg/2 Ml Inj IV Q8H PRN Nausea And Vomiting Oxycodone/Acetaminophen 1 tab 07/27/21 12:27 Oxycodone /Acetaminophen 5-325mg Tab PO Q6H PRN Pain, Moderate (4-6) Polyethylene Glycol 17 gm 07/26/21 17:04 Polyethylene Glycol 3350 17 Gm Powder PO QDAY PRN Constipation Senna/Docusate Sodium 1 tab 07/26/21 22:00 07/27/21 22:00 Sennosides/Docusate Sodium 8.6/50 Mg Tab PO 1 tab QHS BLANCA Administration Simple Syrup 15 ml 07/26/21 14:56 Simple Syrup 15 Ml FEEDTUBE PRN PRN Hypoglycemia Simple Syrup 30 ml 07/26/21 14:56 Simple Syrup 15 Ml FEEDTUBE PRN PRN Hypoglycemia Sodium Bicarbonate 325 mg 07/26/21 14:56 Sodium Bicarbonate 325 Mg Tab FEEDTUBE PRN PRN For Clogged Feeding Tube Sodium Chloride 10 ml 07/25/21 22:00 07/28/21 09:13 Sodium Chloride 0.9% 10 Ml Flush Syringe IV 10 ml BID BLANCA Administration Sodium Chloride 10 ml 07/25/21 16:00 07/26/21 00:08 Sodium Chloride 0.9% 10 Ml Flush Syringe IV 10 ml PRN PRN Administration LINE FLUSH Nutrition/Malnutrition Assess - Dietary Evaluation Nutrition/Malnutrition Findings: Nutrition Notes Start: 07/26/21 14:26 Freq: Status: Active Protocol: Document 07/26/21 14:26 BRYANNA (Rec: 07/26/21 15:00 BRYANNA [id number]) Nutrition Notes Need for Assessment generated from: MD Order Initial or Follow up Assessment Current Diagnosis Diabetes,Sepsis,Hypertension, Respiratory Failure Other Pertinent Diagnosis HCAP, CHF, Ischemic Cardiomyopathy, Dysphagia. Current Diet TF-Glucerna 1.2 Tyson @ 65 ml/hr (from D 07/26). Labs/Tests 07/26: Na 132.K 5.6, Cl 93.2, Glu 171. Pertinent Medications 07/26: Nutritionally unremarkable. Height 6 ft Weight 113.398 kg [place]osh Body Weight (kg) 80.90 BMI 33.9 Intake Prior to Admission Good Weight change and time frame Pt denies having loss body weight [employer]. Weight Status Obese Subjective/Other Information RD consult for write/manage TF . Pt is permanently on NPO due to oropharyngeal Dysphagia and has a PEG tube placed poa, according to Progress notes. Pt is permanently on Mechanical Ventilation with Tracheostomy tube placed, O2 saturation @ 100%, according to Physical Assessment History and Progress notes. Pt lives on a SNF, according to Progress notes. Percent of energy/protein needs met: Prescribed TF-Glucerna 1.2 Tyson @ 65 ml/hr provides for energy/protein needs (1,885 Kcal/94 g) during LOS, 80% Kcal; 100% AA. Burn Absent Trauma Absent GI Symptoms None Difficulty In Swallowing Food Allergy No Skin Integrity/Comment Unspecified Area of Concern. Current % PO Other Minimum of two criteria No Fluid Accumulation N/A Reduced Industrial Seamstress Strength N/A (non-severe) Protein-Calorie Malnutrition N\A #1 Nutrition Diagnosis Swallowing difficulty Etiology Oropharyngeal Dysphagia poa. As Evidenced by Signs and Symptoms Pt is permanently on NPO and has a PEG tube placed poa, according to Progress notes. Is patient on ventilator? Yes Is Patient Ambulatory and/or Out of Bed No REE-([facility]-confined to bed) 4915.068 Calculation Used for Recommendations [facility] Additional Notes Protein: 0.8-1 g/Kg AdjBW; 78- 97 g/day. Fluids: 1 ml/Kcal, or as per MD. Nutrition Intervention Nutrition Support: Start TF-Glucerna 1.2 Tyson @ 65 ml/hr. Flush: 180 ml water Q 4 hr, or as per MD. Kcal 1,885 Protein (gm) 94 Carbohydrates (gm) 180 Fat (gm) 94 Fluid (mL) 1,265 Fiber (gm) 25 % RDI: 80% Kcal; 100% AA. Goal #1 Provide at least 75% of energy /protein needs through Enteral Feeding during LOS. Goal #2 Maintain body weight within +/ -3% of admission body weight during LOS. Follow-Up By: 07/28/21 Additional Comments Start monitoring TF tolerance and BM. <RAFAEL DOMINGUEZ - Last Filed: 08/01/21 10:20> Assessment and Plan Assessment and plan: I saw and evaluated the patient. Discussed with the nurse practitioner and agree with their findings and plan as documented in this note. Hospitalist Physical - Constitutional Vitals: Temp Pulse Resp BP Pulse Ox 98.3 F 78 20 147/79 98 08/01/21 05:29 08/01/21 05:29 08/01/21 05:29 08/01/21 05:29 08/01/21 05:29 HEART Score - HEART Score Troponin: Troponin T < 0.010 ng/mL (0.00-0.029) 07/25/21 Unknown Results - Labs CBC & Chem 7: 07/30/21 04:19 08/01/21 05:42 Labs: Laboratory Last Values WBC 7.4 K/mm3 (4.5-11.0) 07/30/21 04:19 RBC 3.93 M/mm3 (3.65-5.03) 07/30/21 04:19 Hgb 10.9 gm/dl (11.8-15.2) L 07/30/21 04:19 Hct 32.6 % (35.5-45.6) L 07/30/21 04:19 MCV 83 fl (84-94) L 07/30/21 04:19 MCH 28 pg (28-32) 07/30/21 04:19 MCHC 34 % (32-34) 07/30/21 04:19 RDW 16.2 % (13.2-15.2) H 07/30/21 04:19 Plt Count 324 K/mm3 (140-440) 07/30/21 04:19 Lymph # (Auto) Executive Marketing Assistant 07/25/21 Unknown Add Manual Diff Complete 07/26/21 03:50 Total Counted 100 07/26/21 03:50 Seg Neuts % (Manual) 96.0 % (40.0-70.0) H 07/26/21 03:50 Band Neutrophils % 0 % 07/26/21 03:50 Lymphocytes % (Manual) 3.0 % (13.4-35.0) L 07/26/21 03:50 Reactive Lymphs % (Man) 0 % 07/26/21 03:50 Monocytes % (Manual) 1.0 % (0.0-7.3) 07/26/21 03:50 Eosinophils % (Manual) 0 % (0.0-4.3) 07/26/21 03:50 Basophils % (Manual) 0 % (0.0-1.8) 07/26/21 03:50 Metamyelocytes % 0 % 07/26/21 03:50 Myelocytes % 0 % 07/26/21 03:50 Promyelocytes % 0 % 07/26/21 03:50 Blast Cells % 0 % 07/26/21 03:50 Nucleated RBC % Not Reportable 07/26/21 03:50 Seg Neutrophils # Man 14.9 K/mm3 (1.8-7.7) H 07/26/21 03:50 Band Neutrophils # 0.0 K/mm3 07/26/21 03:50 Lymphocytes # (Manual) 0.5 K/mm3 (1.2-5.4) L 07/26/21 03:50 Abs React Lymphs (Man) 0.0 K/mm3 07/26/21 03:50 Monocytes # (Manual) 0.2 K/mm3 (0.0-0.8) 07/26/21 03:50 Eosinophils # (Manual) 0.0 K/mm3 (0.0-0.4) 07/26/21 03:50 Basophils # (Manual) 0.0 K/mm3 (0.0-0.1) 07/26/21 03:50 Metamyelocytes # 0.0 K/mm3 07/26/21 03:50 Myelocytes # 0.0 K/mm3 07/26/21 03:50 Promyelocytes # 0.0 K/mm3 07/26/21 03:50 Blast Cells # 0.0 K/mm3 07/26/21 03:50 WBC Morphology Not Reportable 07/26/21 03:50 Hypersegmented Neuts Not Reportable 07/26/21 03:50 Hyposegmented Neuts Not Reportable 07/26/21 03:50 Hypogranular Neuts Not Reportable 07/26/21 03:50 Smudge Cells Not Reportable 07/26/21 03:50 Toxic Granulation Not Reportable 07/26/21 03:50 Toxic Vacuolation Not Reportable 07/26/21 03:50 Dohle Bodies Not Reportable 07/26/21 03:50 Pelger-Huet Anomaly Not Reportable 07/26/21 03:50 Mely Rods Not Reportable 07/26/21 03:50 Platelet Estimate Consistent w auto 07/26/21 03:50 Clumped Platelets Not Reportable 07/26/21 03:50 Plt Clumps, EDTA Not Reportable 07/26/21 03:50 Large Platelets Not Reportable 07/26/21 03:50 Giant Platelets Not Reportable 07/26/21 03:50 Platelet Satelliting Not Reportable 07/26/21 03:50 Plt Morphology Comment Not Reportable 07/26/21 03:50 RBC Morphology Not Reportable 07/26/21 03:50 Dimorphic RBCs Not Reportable 07/26/21 03:50 Polychromasia Not Reportable 07/26/21 03:50 Hypochromasia Not Reportable 07/26/21 03:50 Poikilocytosis Not Reportable 07/26/21 03:50 Anisocytosis 1+ 07/26/21 03:50 Microcytosis Not Reportable 07/26/21 03:50 Macrocytosis Not Reportable 07/26/21 03:50 Spherocytes Few 07/26/21 03:50 Pappenheimer Bodies Not Reportable 07/26/21 03:50 Sickle Cells Not Reportable 07/26/21 03:50 Target Cells Not Reportable 07/26/21 03:50 Tear Drop Cells Not Reportable 07/26/21 03:50 Ovalocytes Not Reportable 07/26/21 03:50 Helmet Cells Not Reportable 07/26/21 03:50 Longo-Ashaway Bodies Not Reportable 07/26/21 03:50 [place] Rings Not Reportable 07/26/21 03:50 [place] Cells Not Reportable 07/26/21 03:50 Bite Cells Not Reportable 07/26/21 03:50 Crenated Cell Not Reportable 07/26/21 03:50 Elliptocytes Not Reportable 07/26/21 03:50 Acanthocytes (Spur) Not Reportable 07/26/21 03:50 Rouleaux Not Reportable 07/26/21 03:50 Hemoglobin C Crystals Not Reportable 07/26/21 03:50 Schistocytes Not Reportable 07/26/21 03:50 Malaria parasites Not Reportable 07/26/21 03:50 Shaheen Bodies Not Reportable 07/26/21 03:50 Hem Pathologist Commnt No 07/26/21 03:50 ABG pH 7.449 pH Units (7.350-7.450) 07/29/21 20:45 ABG pCO2 51.3 mm Hg 07/29/21 20:45 ABG pO2 85.8 mm Hg (80.0-90.0) 07/29/21 20:45 ABG HCO3 34.7 mmol/L (20.0-26.0) H 07/29/21 20:45 ABG O2 Saturation 97.0 % (95.0-99.0) 07/29/21 20:45 ABG O2 Content 15.7 (0.0-44) 07/29/21 20:45 ABG Base Excess 9.3 mmol/L (-2.0-3.0) H 07/29/21 20:45 ABG Hemoglobin 11.7 gm/dl (14.0-18.0) L 07/29/21 20:45 ABG Carboxyhemoglobin 1.2 % (0.0-5.0) 07/29/21 20:45 ABG Methemoglobin 0.6 % (0.0-1.5) 07/29/21 20:45 Oxyhemoglobin 95.2 % (95.0-99.0) 07/29/21 20:45 FiO2 35 % 07/29/21 20:45 Sodium 141 mmol/L (137-145) 08/01/21 05:42 Potassium 4.7 mmol/L (3.6-5.0) 08/01/21 05:42 Chloride 99.7 mmol/L (98-107) 08/01/21 05:42 Carbon Dioxide 33 mmol/L (22-30) H 08/01/21 05:42 Anion Gap 13 mmol/L 08/01/21 05:42 BUN 29 mg/dL (9-20) H 08/01/21 05:42 Creatinine 2.0 mg/dL (0.8-1.3) H 08/01/21 05:42 Estimated GFR 34 ml/min 08/01/21 05:42 BUN/Creatinine Ratio 15 % 08/01/21 05:42 Glucose 106 mg/dL (75-100) H 08/01/21 05:42 POC Glucose 105 mg/dL (70-105) 08/01/21 05:37 Hemoglobin A1c 5.9 % (4-6) 07/26/21 03:50 Lactic Acid 4.90 mmol/L (0.7-2.0) H* 07/25/21 Unknown Calcium 9.9 mg/dL (8.4-10.2) 08/01/21 05:42 Total Bilirubin 0.20 mg/dL (0.1-1.2) 07/26/21 03:50 AST 19 units/L (5-40) 07/26/21 03:50 ALT 11 units/L (7-56) 07/26/21 03:50 Alkaline Phosphatase 73 units/L (35-129) 07/26/21 03:50 Troponin T < 0.010 ng/mL (0.00-0.029) 07/25/21 Unknown C-Reactive Protein 2.40 mg/dL (0.00-1.30) H 07/27/21 15:57 Total Protein 8.2 g/dL (6.3-8.2) 07/26/21 03:50 Albumin 3.7 g/dL (3.9-5) L 07/26/21 03:50 Albumin/Globulin Ratio 0.8 % 07/26/21 03:50 Procalcitonin 0.77 ng/mL (<0.15) 07/27/21 15:57 Urine Color Yellow (Yellow) 07/25/21 11:19 Urine Turbidity Cloudy (Clear) 07/25/21 11:19 Urine pH 6.0 (5.0-7.0) 07/25/21 11:19 Ur Specific Ault 1.015 (1.003-1.030) 07/25/21 11:19 Urine Protein >500 mg/dL (Negative) 07/25/21 11:19 Urine Glucose (UA) 150 mg/dL (Negative) 07/25/21 11:19 Urine Ketones Neg mg/dL (Negative) 07/25/21 11:19 Urine Blood Neg (Negative) 07/25/21 11:19 Urine Nitrite Neg (Negative) 07/25/21 11:19 Urine Bilirubin Neg (Negative) 07/25/21 11:19 Urine Urobilinogen < 2.0 mg/dL (<2.0) 07/25/21 11:19 Ur Leukocyte Esterase Neg (Negative) 07/25/21 11:19 Urine WBC (Auto) 26.0 /HPF (0.0-6.0) H 07/25/21 11:19 Urine RBC (Auto) 53.0 /HPF (0.0-6.0) 07/25/21 11:19 U Epithel Cells (Auto) 7.0 /HPF (0-13.0) 07/25/21 11:19 Urine Bacteria (Auto) 4+ /HPF (Negative) 07/25/21 11:19 Hyaline Casts 21 /LPF 07/25/21 11:19 Urine Mucus Few /HPF 07/25/21 11:19 Urine Yeast (Budding) 2+ /HPF 07/25/21 11:19 Urine Sperm 3+ /HPF (INSIDE TRUCKER) 07/25/21 11:19 Urine Eosinophils None seen (None Seen) 07/27/21 17:45 Urine Creatinine 105.6 mg/dL (0.1-20.0) H 07/27/21 17:45 Urine Creatinine 106.0 mg/dL (0.1-20.0) H 07/27/21 17:45 Protein/Creatinin Ratio 0.28 07/27/21 17:45 Urine Sodium 46 mmol/L 07/27/21 17:45 Urine Total Protein 30 mg/dL (5-11.8) H 07/27/21 17:45 Nasal Screen MRSA (PCR) Positive (Negative) 07/26/21 16:30 Proteinase 3 (PR3) Ab <1.0 AI (<1.0) 07/27/21 18:17 Myeloperoxidase Ab <1.0 AI (<1.0) 07/27/21 18:17 Complement C3 149 mg/dL (82-185) 07/27/21 18:17 Coronavirus (PCR) Negative (Negative) 07/27/21 09:00 SARS-CoV-2 (PCR) Negative (Negative) 07/31/21 13:05 Hepatitis A IgM Ab Non-reactive (NonReactive) 07/27/21 18:17 Hep Bs Antigen Non-reactive (Negative) 07/27/21 18:17 Hep B Core IgM Ab Non-reactive (NonReactive) 07/27/21 18:17 Hepatitis C Antibody Non-reactive (NonReactive) 07/27/21 18:17 Good/IV: Voiding Method Indwelling Catheter Active Medications - Current Medications Current Medications: Generic Name Dose Route Start Last Admin Trade Name Freq PRN Reason Stop Dose Admin Acetaminophen 650 mg 07/25/21 16:00 Acetaminophen 325 Mg Tab PO Q4H PRN Pain MILD(1-3)/Fever >100.5/RAYO Albuterol/Ipratropium 1 ampul 07/26/21 16:00 08/01/21 07:43 Ipratropium/Albuterol Sulfate 3 Ml Ampul.Neb IH 1 ampul Q8HRT BLANCA Administration Amlodipine Besylate 10 mg 07/28/21 10:00 07/31/21 09:36 Amlodipine 5 Mg Tab FEEDTUBE 10 mg QDAY BLANCA Administration Lipase/Protease/Amylase 1 each 07/26/21 14:56 Lipase 10,500/Protease 25,000/Amylase 43,750 (Units) Dr Zambrano FEEDTUBE PRN PRN For Clogged Feeding Tube Dextrose 50 ml 07/26/21 12:22 Dextrose 50% In Water (25gm) 50 Ml Syringe IV Q30MIN PRN Hypoglycemia Protocol Famotidine 10 mg 07/27/21 10:00 07/31/21 22:27 Famotidine 10 Mg Tab FEEDTUBE 10 mg BID BLANCA Administration Heparin Sodium (Porcine) 5,000 unit 07/25/21 16:00 07/31/21 22:27 Heparin 5,000 Unit/1 Ml Vial SUB-Q 5,000 unit Q12HR BLANCA Administration Hydralazine HCl 25 mg 07/30/21 14:00 08/01/21 05:27 Hydralazine 25 Mg Tab PO 25 mg Q8HR BLANCA Administration Hydralazine HCl 15 mg 07/30/21 07:44 Hydralazine 20 Mg/1 Ml Inj IV Q6H PRN Blood Pressure Insulin Human Regular 0 units 07/26/21 12:00 08/01/21 05:26 Insulin Regular, Human 100 Units/1 Ml SUB-Q Not Given Q6HR BLANCA Protocol Labetalol HCl 100 mg 07/28/21 10:00 07/31/21 22:32 Labetalol 100 Mg Tab FEEDTUBE 100 mg BID BLANCA Administration Midazolam HCl 2 mg 07/30/21 14:34 Midazolam 2 Mg/2 Ml Inj IV 08/01/21 14:33 Q2H PRN Agitation Ondansetron HCl 4 mg 07/25/21 16:00 Ondansetron 4 Mg/2 Ml Inj IV Q8H PRN Nausea And Vomiting Oxycodone/Acetaminophen 1 tab 07/27/21 12:27 07/30/21 20:45 Oxycodone /Acetaminophen 5-325mg Tab PO 1 tab Q6H PRN Administration Pain, Moderate (4-6) Polyethylene Glycol 17 gm 07/26/21 17:04 Polyethylene Glycol 3350 17 Gm Powder PO QDAY PRN Constipation Senna/Docusate Sodium 1 tab 07/26/21 22:00 07/31/21 22:27 Sennosides/Docusate Sodium 8.6/50 Mg Tab PO 1 tab QHS BLANCA Administration Simple Syrup 15 ml 07/26/21 14:56 Simple Syrup 15 Ml FEEDTUBE PRN PRN Hypoglycemia Simple Syrup 30 ml 07/26/21 14:56 Simple Syrup 15 Ml FEEDTUBE PRN PRN Hypoglycemia Sodium Bicarbonate 325 mg 07/26/21 14:56 Sodium Bicarbonate 325 Mg Tab FEEDTUBE PRN PRN For Clogged Feeding Tube Sodium Chloride 10 ml 07/25/21 22:00 07/31/21 22:27 Sodium Chloride 0.9% 10 Ml Flush Syringe IV 10 ml BID BLANCA Administration Sodium Chloride 10 ml 07/25/21 16:00 07/26/21 00:08 Sodium Chloride 0.9% 10 Ml Flush Syringe IV 10 ml PRN PRN Administration LINE FLUSH Nutrition/Malnutrition Assess - Dietary Evaluation Nutrition/Malnutrition Findings: Nutrition Notes Start: 07/26/21 14:26 Freq: Status: Active Protocol: Document 07/31/21 14:46 BRIAN (Rec: 07/31/21 14:52 BRIAN [id number]) Nutrition Notes Initial or Follow up Reassessment Current Diagnosis Acute Kidney Injury,Diabetes, Hypertension,Respiratory Failure Other Pertinent Diagnosis Pneu Current Diet TF - Glucerna 1.2 at 55ml/hr Labs/Tests BUN 30 Cr 2.1 Pertinent Medications Reviewed Height 6 ft Weight 110 kg [place] Body Weight (kg) 80.90 BMI 32.8 Weight change and time frame Wt change noted Weight Status Obese Subjective/Other Information Pt now on T-piece with 35% FiO2. Per RN, he is tolerating TF at goal rate of 55ml/hr. Per nephrology note on yesterday, no need for dialysis at this time. Percent of energy/protein needs met: 68% energy 100% pro Burn Absent Trauma Absent #1 Nutrition Diagnosis Swallowing difficulty Diagnosis Progress(for reassessment Continues documentation) Is patient on ventilator? No Is Patient Ambulatory and/or Out of Bed No REE-([place]-[facility] Jeor-confined to bed) [phone] Calculation Used for Recommendations 65-70% REE Additional Notes Energy needs: 6437-5299 kcal/ day Pro needs 0.8-1.2g/kg adjBW: 76-115g/day Fluid needs 1ml/kcal Nutrition Intervention Nutrition Support: Continue Glucerna 1.2 at 55ml/ hr with 85ml water flush q4h. Kcal 1,584 Protein (gm) 79 Carbohydrates (gm) 151 Fat (gm) 79 Fluid (mL) 1,063 Fiber (gm) 21 Goal #1 TF tolerance Goal #2 TF to meet 65-70% energy and at least 75% pro needs Follow-Up By: 08/07/21 Additional Comments F/U: stable TF, wt, renal function
[2021-07-28] MEDS: SENNOSIDES/DOCUSATE SODIUM 8.6/50 MG TAB PO SCH (22:28)
[2021-07-29] MEDS: INSULIN REGULAR, HUMAN 100 UNITS/1 ML SUB-Q SCH ×4 (00:31→20:03)
[2021-07-29] MEDS: hydrALAZINE 20 MG/1 ML INJ IV PRN (02:03)
[2021-07-29 05:45] LABS: Calcium 9.9 mg/dL (8.4-10.2)
[2021-07-29] MEDS: CEFEPIME/NS 2 GM/100 ML 2 GM/100 ML BAG IV SCH ×2 (06:30→18:17)
[2021-07-29] MEDS: IPRATROPIUM/ALBUTEROL SULFATE 3 ML AMPUL.NEB IH SCH ×2 (07:40→15:11)
[2021-07-29] MEDS: FAMOTIDINE 10 MG TAB FEEDTUBE SCH ×2 (09:36→22:23)
[2021-07-29] MEDS: HEPARIN 5,000 UNIT/1 ML VIAL SUB-Q SCH ×2 (09:37→22:25)
[2021-07-29] MEDS: amLODIPine 5 MG TAB FEEDTUBE SCH (09:37)
[2021-07-29 09:57] LABS: ABG Base Excess 9.1 mmol/L (-2.0-3.0); ABG HCO3 35.1 mmol/L (20.0-26.0); ABG Methemoglobin 0.6 % (0.0-1.5); ABG Oxygen Saturation 98.5 % (95.0-99.0); ABG PCO2 54.7 mm Hg; ABG PH 7.425 pH Units (7.350-7.450); ABG PO2 131.5 mm Hg (80.0-90.0)
--- NOTE | 2021-07-29 10:16 | Progress Note ---
Assessment and Plan Impression * Acute kidney injury * Respiratory failure * Hypertension * Diabetes * Proteinuria * Cardiomyopathy * Urinary retention Recommendations * Patient had a serum creatinine of 0.8 on admission. Etiology of acute kidney injury unclear at this time. * Continue diuretics as needed * His urine shows 4+ dipstick protein with associated microhematuria as well as pyuria . patient does have pulmonary infiltrates. Need to rule out pulmonary renal syndrome. Follow-up results of vasculitis work-up. Hepatitis B and C both are negative * Patient does have some urinary retention. Continue Good catheter for now. * Fractional excretion of sodium is 0.7% and urine protein creatinine ratio is approximately 300 mg/g . Urine is negative for eosinophils * He may have some degree of underlying diabetic nephropathy * Avoid nephrotoxins * Broad-spectrum antibiotic as per ICU team * Monitor fluid status and electrolytes closely * Patient is currently nonoliguric. No urgent indication for dialysis today Subjective Date of service: 07/29/21 Principal diagnosis: Ac and ch hypoxemic and hypercapnic Resp Failure; HCAP; AE- CHF; s/p Trach Interval history: Patient is comfortable today. Currently on 30% FiO2. Oxygen saturation is 98%. Indwelling Good catheter in place. Objective - Vital Signs Vital signs: Vital Signs - 12hr 07/28/21 07/28/21 07/28/21 22:21 22:30 22:41 Temperature Pulse Rate 90 93 H 88 Pulse Rate [ Anterior Left Throughout] Pulse Rate [ Anterior Right Throughout] Pulse Rate [ Bilateral Throughout] Pulse Rate [ Bilateral] Pulse Rate [ From Monitor] Respiratory 14 17 19 Rate Respiratory Rate [Anterior Left Throughout ] Respiratory Rate [Anterior Right Throughout] Respiratory Rate [Bilateral Throughout] Respiratory Rate [Bilateral ] Blood Pressure 165/83 178/87 178/87 O2 Sat by Pulse 97 96 99 Oximetry O2 Sat by Pulse Oximetry [ Assessment] 07/28/21 07/28/21 07/28/21 22:51 23:01 23:11 Temperature Pulse Rate 86 102 H 92 H Pulse Rate [ Anterior Left Throughout] Pulse Rate [ Anterior Right Throughout] Pulse Rate [ Bilateral Throughout] Pulse Rate [ Bilateral] Pulse Rate [ From Monitor] Respiratory 16 21 15 Rate Respiratory Rate [Anterior Left Throughout ] Respiratory Rate [Anterior Right Throughout] Respiratory Rate [Bilateral Throughout] Respiratory Rate [Bilateral ] Blood Pressure 178/87 178/87 157/82 O2 Sat by Pulse 98 93 97 Oximetry O2 Sat by Pulse Oximetry [ Assessment] 07/28/21 07/28/21 07/28/21 23:21 23:30 23:41 Temperature Pulse Rate 83 78 81 Pulse Rate [ Anterior Left Throughout] Pulse Rate [ Anterior Right Throughout] Pulse Rate [ Bilateral Throughout] Pulse Rate [ Bilateral] Pulse Rate [ From Monitor] Respiratory 16 15 14 Rate Respiratory Rate [Anterior Left Throughout ] Respiratory Rate [Anterior Right Throughout] Respiratory Rate [Bilateral Throughout] Respiratory Rate [Bilateral ] Blood Pressure 157/82 156/76 156/76 O2 Sat by Pulse 97 94 97 Oximetry O2 Sat by Pulse Oximetry [ Assessment] 07/28/21 07/28/21 07/28/21 23:43 23:48 23:51 Temperature Pulse Rate 82 78 Pulse Rate [ Anterior Left Throughout] Pulse Rate [ Anterior Right Throughout] Pulse Rate [ 82 Bilateral Throughout] Pulse Rate [ 88 Bilateral] Pulse Rate [ From Monitor] Respiratory 13 16 Rate Respiratory Rate [Anterior Left Throughout ] Respiratory Rate [Anterior Right Throughout] Respiratory 16 Rate [Bilateral Throughout] Respiratory 26 H Rate [Bilateral ] Blood Pressure 156/76 156/76 O2 Sat by Pulse 97 98 Oximetry O2 Sat by Pulse Oximetry [ Assessment] 07/28/21 07/28/21 07/29/21 23:53 23:57 00:00 Temperature 98.2 F Pulse Rate 103 H 82 Pulse Rate [ Anterior Left Throughout] Pulse Rate [ Anterior Right Throughout] Pulse Rate [ Bilateral Throughout] Pulse Rate [ Bilateral] Pulse Rate [ 77 From Monitor] Respiratory 18 Rate Respiratory Rate [Anterior Left Throughout ] Respiratory Rate [Anterior Right Throughout] Respiratory Rate [Bilateral Throughout] Respiratory Rate [Bilateral ] Blood Pressure 156/76 157/75 O2 Sat by Pulse 98 93 Oximetry O2 Sat by Pulse 98 Oximetry [ Assessment] 07/29/21 07/29/21 07/29/21 00:11 00:21 00:30 Temperature Pulse Rate 79 78 76 Pulse Rate [ Anterior Left Throughout] Pulse Rate [ Anterior Right Throughout] Pulse Rate [ Bilateral Throughout] Pulse Rate [ Bilateral] Pulse Rate [ From Monitor] Respiratory 26 H 27 H 32 H Rate Respiratory Rate [Anterior Left Throughout ] Respiratory Rate [Anterior Right Throughout] Respiratory Rate [Bilateral Throughout] Respiratory Rate [Bilateral ] Blood Pressure 157/75 157/75 157/77 O2 Sat by Pulse 98 97 94 Oximetry O2 Sat by Pulse Oximetry [ Assessment] 07/29/21 07/29/21 07/29/21 00:41 00:51 01:00 Temperature Pulse Rate 80 78 80 Pulse Rate [ Anterior Left Throughout] Pulse Rate [ Anterior Right Throughout] Pulse Rate [ Bilateral Throughout] Pulse Rate [ Bilateral] Pulse Rate [ From Monitor] Respiratory 17 17 16 Rate Respiratory Rate [Anterior Left Throughout ] Respiratory Rate [Anterior Right Throughout] Respiratory Rate [Bilateral Throughout] Respiratory Rate [Bilateral ] Blood Pressure 157/77 157/77 138/71 O2 Sat by Pulse 96 97 93 Oximetry O2 Sat by Pulse Oximetry [ Assessment] 07/29/21 07/29/21 07/29/21 01:11 01:21 01:30 Temperature Pulse Rate 79 90 90 Pulse Rate [ Anterior Left Throughout] Pulse Rate [ Anterior Right Throughout] Pulse Rate [ Bilateral Throughout] Pulse Rate [ Bilateral] Pulse Rate [ From Monitor] Respiratory 15 13 13 Rate Respiratory Rate [Anterior Left Throughout ] Respiratory Rate [Anterior Right Throughout] Respiratory Rate [Bilateral Throughout] Respiratory Rate [Bilateral ] Blood Pressure 138/71 138/71 174/81 O2 Sat by Pulse 97 96 94 Oximetry O2 Sat by Pulse Oximetry [ Assessment] 07/29/21 07/29/21 07/29/21 01:41 01:51 02:00 Temperature Pulse Rate 81 86 87 Pulse Rate [ Anterior Left Throughout] Pulse Rate [ Anterior Right Throughout] Pulse Rate [ Bilateral Throughout] Pulse Rate [ Bilateral] Pulse Rate [ From Monitor] Respiratory 11 L 14 16 Rate Respiratory Rate [Anterior Left Throughout ] Respiratory Rate [Anterior Right Throughout] Respiratory Rate [Bilateral Throughout] Respiratory Rate [Bilateral ] Blood Pressure 174/81 174/81 178/88 O2 Sat by Pulse 97 97 95 Oximetry O2 Sat by Pulse Oximetry [ Assessment] 07/29/21 07/29/21 07/29/21 02:03 02:11 02:21 Temperature Pulse Rate 82 79 84 Pulse Rate [ Anterior Left Throughout] Pulse Rate [ Anterior Right Throughout] Pulse Rate [ Bilateral Throughout] Pulse Rate [ Bilateral] Pulse Rate [ From Monitor] Respiratory 13 15 Rate Respiratory Rate [Anterior Left Throughout ] Respiratory Rate [Anterior Right Throughout] Respiratory Rate [Bilateral Throughout] Respiratory Rate [Bilateral ] Blood Pressure 178/88 178/88 178/88 O2 Sat by Pulse 97 97 Oximetry O2 Sat by Pulse Oximetry [ Assessment] 07/29/21 07/29/21 07/29/21 02:30 02:41 02:51 Temperature Pulse Rate 84 88 100 H Pulse Rate [ Anterior Left Throughout] Pulse Rate [ Anterior Right Throughout] Pulse Rate [ Bilateral Throughout] Pulse Rate [ Bilateral] Pulse Rate [ From Monitor] Respiratory 15 14 17 Rate Respiratory Rate [Anterior Left Throughout ] Respiratory Rate [Anterior Right Throughout] Respiratory Rate [Bilateral Throughout] Respiratory Rate [Bilateral ] Blood Pressure 146/66 146/66 146/66 O2 Sat by Pulse 94 96 98 Oximetry O2 Sat by Pulse Oximetry [ Assessment] 07/29/21 07/29/21 07/29/21 03:00 03:11 03:21 Temperature Pulse Rate 91 H 90 92 H Pulse Rate [ Anterior Left Throughout] Pulse Rate [ Anterior Right Throughout] Pulse Rate [ Bilateral Throughout] Pulse Rate [ Bilateral] Pulse Rate [ From Monitor] Respiratory 17 16 16 Rate Respiratory Rate [Anterior Left Throughout ] Respiratory Rate [Anterior Right Throughout] Respiratory Rate [Bilateral Throughout] Respiratory Rate [Bilateral ] Blood Pressure 139/69 139/69 139/69 O2 Sat by Pulse 94 97 97 Oximetry O2 Sat by Pulse Oximetry [ Assessment] 07/29/21 07/29/21 07/29/21 03:30 03:31 03:41 Temperature Pulse Rate 88 82 88 Pulse Rate [ Anterior Left Throughout] Pulse Rate [ Anterior Right Throughout] Pulse Rate [ Bilateral Throughout] Pulse Rate [ Bilateral] Pulse Rate [ From Monitor] Respiratory 15 14 Rate Respiratory Rate [Anterior Left Throughout ] Respiratory Rate [Anterior Right Throughout] Respiratory Rate [Bilateral Throughout] Respiratory Rate [Bilateral ] Blood Pressure 153/74 144/75 153/74 O2 Sat by Pulse 94 98 97 Oximetry O2 Sat by Pulse Oximetry [ Assessment] 07/29/21 07/29/21 07/29/21 03:51 04:00 04:10 Temperature 98.6 F Pulse Rate 115 H 96 H 95 H Pulse Rate [ Anterior Left Throughout] Pulse Rate [ Anterior Right Throughout] Pulse Rate [ Bilateral Throughout] Pulse Rate [ Bilateral] Pulse Rate [ 95 H From Monitor] Respiratory 16 17 17 Rate Respiratory Rate [Anterior Left Throughout ] Respiratory Rate [Anterior Right Throughout] Respiratory Rate [Bilateral Throughout] Respiratory Rate [Bilateral ] Blood Pressure 153/74 141/69 153/74 O2 Sat by Pulse 96 93 97 Oximetry O2 Sat by Pulse Oximetry [ Assessment] 07/29/21 07/29/21 07/29/21 04:21 04:30 04:41 Temperature Pulse Rate 93 H 94 H 89 Pulse Rate [ Anterior Left Throughout] Pulse Rate [ Anterior Right Throughout] Pulse Rate [ Bilateral Throughout] Pulse Rate [ Bilateral] Pulse Rate [ From Monitor] Respiratory 17 18 15 Rate Respiratory Rate [Anterior Left Throughout ] Respiratory Rate [Anterior Right Throughout] Respiratory Rate [Bilateral Throughout] Respiratory Rate [Bilateral ] Blood Pressure 141/69 154/80 154/80 O2 Sat by Pulse 97 93 96 Oximetry O2 Sat by Pulse Oximetry [ Assessment] 07/29/21 07/29/21 07/29/21 04:51 05:00 05:11 Temperature Pulse Rate 90 91 H 92 H Pulse Rate [ Anterior Left Throughout] Pulse Rate [ Anterior Right Throughout] Pulse Rate [ Bilateral Throughout] Pulse Rate [ Bilateral] Pulse Rate [ From Monitor] Respiratory 13 16 16 Rate Respiratory Rate [Anterior Left Throughout ] Respiratory Rate [Anterior Right Throughout] Respiratory Rate [Bilateral Throughout] Respiratory Rate [Bilateral ] Blood Pressure 154/80 142/74 142/74 O2 Sat by Pulse 98 93 96 Oximetry O2 Sat by Pulse Oximetry [ Assessment] 07/29/21 07/29/21 07/29/21 05:21 05:30 05:41 Temperature Pulse Rate 92 H 96 H 95 H Pulse Rate [ Anterior Left Throughout] Pulse Rate [ Anterior Right Throughout] Pulse Rate [ Bilateral Throughout] Pulse Rate [ Bilateral] Pulse Rate [ From Monitor] Respiratory 16 13 12 Rate Respiratory Rate [Anterior Left Throughout ] Respiratory Rate [Anterior Right Throughout] Respiratory Rate [Bilateral Throughout] Respiratory Rate [Bilateral ] Blood Pressure 142/74 154/80 154/80 O2 Sat by Pulse 96 94 97 Oximetry O2 Sat by Pulse Oximetry [ Assessment] 07/29/21 07/29/21 07/29/21 05:51 06:00 06:11 Temperature Pulse Rate 90 88 88 Pulse Rate [ Anterior Left Throughout] Pulse Rate [ Anterior Right Throughout] Pulse Rate [ Bilateral Throughout] Pulse Rate [ Bilateral] Pulse Rate [ From Monitor] Respiratory 16 14 15 Rate Respiratory Rate [Anterior Left Throughout ] Respiratory Rate [Anterior Right Throughout] Respiratory Rate [Bilateral Throughout] Respiratory Rate [Bilateral ] Blood Pressure 154/80 153/80 153/80 O2 Sat by Pulse 97 93 97 Oximetry O2 Sat by Pulse Oximetry [ Assessment] 07/29/21 07/29/21 07/29/21 06:21 06:30 06:41 Temperature Pulse Rate 88 85 85 Pulse Rate [ Anterior Left Throughout] Pulse Rate [ Anterior Right Throughout] Pulse Rate [ Bilateral Throughout] Pulse Rate [ Bilateral] Pulse Rate [ From Monitor] Respiratory 14 13 15 Rate Respiratory Rate [Anterior Left Throughout ] Respiratory Rate [Anterior Right Throughout] Respiratory Rate [Bilateral Throughout] Respiratory Rate [Bilateral ] Blood Pressure 153/80 166/78 166/78 O2 Sat by Pulse 97 94 97 Oximetry O2 Sat by Pulse Oximetry [ Assessment] 07/29/21 07/29/21 07/29/21 06:51 07:00 07:11 Temperature Pulse Rate 86 94 H 95 H Pulse Rate [ Anterior Left Throughout] Pulse Rate [ Anterior Right Throughout] Pulse Rate [ Bilateral Throughout] Pulse Rate [ Bilateral] Pulse Rate [ From Monitor] Respiratory 15 14 15 Rate Respiratory Rate [Anterior Left Throughout ] Respiratory Rate [Anterior Right Throughout] Respiratory Rate [Bilateral Throughout] Respiratory Rate [Bilateral ] Blood Pressure 166/78 164/81 164/81 O2 Sat by Pulse 97 94 97 Oximetry O2 Sat by Pulse Oximetry [ Assessment] 07/29/21 07/29/21 07/29/21 07:21 07:30 07:40 Temperature Pulse Rate 87 85 87 Pulse Rate [ 88 Anterior Left Throughout] Pulse Rate [ 87 Anterior Right Throughout] Pulse Rate [ Bilateral Throughout] Pulse Rate [ Bilateral] Pulse Rate [ From Monitor] Respiratory 10 L 14 Rate Respiratory 18 Rate [Anterior Left Throughout ] Respiratory 18 Rate [Anterior Right Throughout] Respiratory Rate [Bilateral Throughout] Respiratory Rate [Bilateral ] Blood Pressure 164/81 156/84 156/84 O2 Sat by Pulse 98 94 97 Oximetry O2 Sat by Pulse 97 Oximetry [ Assessment] 07/29/21 07/29/21 07/29/21 07:41 07:51 08:00 Temperature 99.1 F Pulse Rate 86 93 H 82 Pulse Rate [ Anterior Left Throughout] Pulse Rate [ Anterior Right Throughout] Pulse Rate [ Bilateral Throughout] Pulse Rate [ Bilateral] Pulse Rate [ 95 H From Monitor] Respiratory 13 15 12 Rate Respiratory Rate [Anterior Left Throughout ] Respiratory Rate [Anterior Right Throughout] Respiratory Rate [Bilateral Throughout] Respiratory Rate [Bilateral ] Blood Pressure 156/84 156/84 157/77 O2 Sat by Pulse 97 95 Oximetry O2 Sat by Pulse Oximetry [ Assessment] 07/29/21 07/29/21 07/29/21 08:11 08:21 08:30 Temperature Pulse Rate 93 H 90 85 Pulse Rate [ Anterior Left Throughout] Pulse Rate [ Anterior Right Throughout] Pulse Rate [ Bilateral Throughout] Pulse Rate [ Bilateral] Pulse Rate [ From Monitor] Respiratory 10 L 15 23 Rate Respiratory Rate [Anterior Left Throughout ] Respiratory Rate [Anterior Right Throughout] Respiratory Rate [Bilateral Throughout] Respiratory Rate [Bilateral ] Blood Pressure 156/84 156/84 146/78 O2 Sat by Pulse 99 98 94 Oximetry O2 Sat by Pulse Oximetry [ Assessment] 07/29/21 07/29/21 07/29/21 08:41 08:51 09:00 Temperature Pulse Rate 86 84 87 Pulse Rate [ Anterior Left Throughout] Pulse Rate [ Anterior Right Throughout] Pulse Rate [ Bilateral Throughout] Pulse Rate [ Bilateral] Pulse Rate [ From Monitor] Respiratory 12 14 14 Rate Respiratory Rate [Anterior Left Throughout ] Respiratory Rate [Anterior Right Throughout] Respiratory Rate [Bilateral Throughout] Respiratory Rate [Bilateral ] Blood Pressure 146/78 146/78 159/87 O2 Sat by Pulse 97 98 95 Oximetry O2 Sat by Pulse Oximetry [ Assessment] 07/29/21 07/29/21 07/29/21 09:11 09:21 09:30 Temperature Pulse Rate 85 82 82 Pulse Rate [ Anterior Left Throughout] Pulse Rate [ Anterior Right Throughout] Pulse Rate [ Bilateral Throughout] Pulse Rate [ Bilateral] Pulse Rate [ From Monitor] Respiratory 16 17 15 Rate Respiratory Rate [Anterior Left Throughout ] Respiratory Rate [Anterior Right Throughout] Respiratory Rate [Bilateral Throughout] Respiratory Rate [Bilateral ] Blood Pressure 159/87 159/87 161/85 O2 Sat by Pulse 98 98 96 Oximetry O2 Sat by Pulse Oximetry [ Assessment] 07/29/21 07/29/21 07/29/21 09:37 09:41 09:51 Temperature Pulse Rate 92 H 86 82 Pulse Rate [ Anterior Left Throughout] Pulse Rate [ Anterior Right Throughout] Pulse Rate [ Bilateral Throughout] Pulse Rate [ Bilateral] Pulse Rate [ From Monitor] Respiratory 17 16 Rate Respiratory Rate [Anterior Left Throughout ] Respiratory Rate [Anterior Right Throughout] Respiratory Rate [Bilateral Throughout] Respiratory Rate [Bilateral ] Blood Pressure 161/85 161/85 161/85 O2 Sat by Pulse 99 98 Oximetry O2 Sat by Pulse Oximetry [ Assessment] 07/29/21 07/29/21 10:00 10:11 Temperature Pulse Rate 79 81 Pulse Rate [ Anterior Left Throughout] Pulse Rate [ Anterior Right Throughout] Pulse Rate [ Bilateral Throughout] Pulse Rate [ Bilateral] Pulse Rate [ From Monitor] Respiratory 27 H 15 Rate Respiratory Rate [Anterior Left Throughout ] Respiratory Rate [Anterior Right Throughout] Respiratory Rate [Bilateral Throughout] Respiratory Rate [Bilateral ] Blood Pressure 156/78 156/78 O2 Sat by Pulse 96 97 Oximetry O2 Sat by Pulse Oximetry [ Assessment] - General Appearance General appearance: well-developed, well-nourished, appears stated age EENT: PERRL, mucous membranes moist Neck: other (Tracheostomy tube in place. Connected to the ventilator.) Respiratory: Present: Ronchi (Few scattered rhonchi) Cardiology: regular Gastrointestinal: normal, normoactive bowel sounds, other (PEG tube in place) Integumentary: other (Trace edema) - Lab 07/28/21 04:32 07/29/21 05:09 Most recent lab results ABG pH 7.425 pH Units (7.350-7.450) 07/29/21 09:00 ABG pCO2 54.7 mm Hg 07/29/21 09:00 ABG pO2 131.5 mm Hg (80.0-90.0) H 07/29/21 09:00 ABG HCO3 35.1 mmol/L (20.0-26.0) H 07/29/21 09:00 ABG O2 Saturation 98.5 % (95.0-99.0) 07/29/21 09:00 Calcium 9.9 mg/dL (8.4-10.2) 07/29/21 05:09 Urine Creatinine 105.6 mg/dL (0.1-20.0) H 07/27/21 17:45 Urine Creatinine 106.0 mg/dL (0.1-20.0) H 07/27/21 17:45 Urine Sodium 46 mmol/L 07/27/21 17:45 Urine Total Protein 30 mg/dL (5-11.8) H 07/27/21 17:45 Medications & Allergies - Medications Allergies/Adverse Reactions: Allergies No Known Allergies Allergy (Verified 07/25/21 11:02) Home Medications: Home Medications Medication Instructions Recorded Confirmed Last Taken Type No Known Home Medications [No 03/11/21 03/11/21 Unknown History Reported Home Medications] Apixaban [Eliquis] 5 mg FEEDTUBE Q12HR 30 Days #60 05/02/21 Unknown Rx tablet Doxazosin [Cardura] 1 mg FEEDTUBE BID 30 Days #60 05/02/21 Unknown Rx tablet Famotidine [Pepcid] 20 mg FEEDTUBE BID 30 Days #60 05/02/21 Unknown Rx tablet Glycopyrrolate 2 mg PO TID 30 Days #90 tablet 05/02/21 Unknown Rx Insulin Glargine [Lantus VIAL] 18 units SUB-Q QHS 30 Days #2 vial 05/02/21 Unknown Rx Metoprolol [Lopressor TAB] 12.5 mg FEEDTUBE BID 30 Days #60 05/02/21 Unknown Rx tablet amLODIPine 10 mg FEEDTUBE DAILY 30 Days #30 05/02/21 Unknown Rx tablet cephALEXin [Keflex] 500 mg PO Q8HR 2 Days #6 cap 05/02/21 Unknown Rx hydrALAZINE [Apresoline TAB] 50 mg FEEDTUBE Q8HR 30 Days #90 05/02/21 Unknown Rx tablet Active Medications: Generic Name Dose Route Start Last Admin Trade Name Freq PRN Reason Stop Dose Admin Acetaminophen 650 mg 07/25/21 16:00 Acetaminophen 325 Mg Tab PO Q4H PRN Pain MILD(1-3)/Fever >100.5/RAYO Albuterol/Ipratropium 1 ampul 07/26/21 16:00 07/29/21 07:40 Ipratropium/Albuterol Sulfate 3 Ml Ampul.Neb IH 1 ampul Q8HRT BLANCA Administration Amlodipine Besylate 10 mg 07/28/21 10:00 07/29/21 09:37 Amlodipine 5 Mg Tab FEEDTUBE 10 mg QDAY BLANCA Administration Lipase/Protease/Amylase 1 each 07/26/21 14:56 Lipase 10,500/Protease 25,000/Amylase 43,750 (Units) Dr Zambrano FEEDTUBE PRN PRN For Clogged Feeding Tube Dextrose 50 ml 07/26/21 12:22 Dextrose 50% In Water (25gm) 50 Ml Syringe IV Q30MIN PRN Hypoglycemia Protocol Famotidine 10 mg 07/27/21 10:00 07/29/21 09:36 Famotidine 10 Mg Tab FEEDTUBE 10 mg BID BLANCA Administration Heparin Sodium (Porcine) 5,000 unit 07/25/21 16:00 07/29/21 09:37 Heparin 5,000 Unit/1 Ml Vial SUB-Q 5,000 unit Q12HR BLANCA Administration Hydralazine HCl 20 mg 07/27/21 06:00 07/29/21 02:03 Hydralazine 20 Mg/1 Ml Inj IV 20 mg Q6H PRN Administration Blood Pressure Hydralazine HCl 10 mg 07/29/21 14:00 Hydralazine 10 Mg Tab PO Q8HR [facility] Cefepime HCl 2 gm in 100 mls @ 200 mls/hr 07/27/21 18:00 07/29/21 06:30 Cefepime/Ns 2 Gm/100 Ml IV 200 mls/hr Q12H BLANCA Administration Protocol Insulin Human Regular 0 units 07/26/21 12:00 07/29/21 06:38 Insulin Regular, Human 100 Units/1 Ml SUB-Q Not Given Q6HR [facility] Protocol Labetalol HCl 100 mg 07/28/21 10:00 07/29/21 09:37 Labetalol 100 Mg Tab FEEDTUBE 100 mg BID BLANCA Administration Ondansetron HCl 4 mg 07/25/21 16:00 Ondansetron 4 Mg/2 Ml Inj IV Q8H PRN Nausea And Vomiting Oxycodone/Acetaminophen 1 tab 07/27/21 12:27 Oxycodone /Acetaminophen 5-325mg Tab PO Q6H PRN Pain, Moderate (4-6) Polyethylene Glycol 17 gm 07/26/21 17:04 Polyethylene Glycol 3350 17 Gm Powder PO QDAY PRN Constipation Senna/Docusate Sodium 1 tab 07/26/21 22:00 07/28/21 22:28 Sennosides/Docusate Sodium 8.6/50 Mg Tab PO 1 tab QHS [facility]ANCA Administration Simple Syrup 15 ml 07/26/21 14:56 Simple Syrup 15 Ml FEEDTUBE PRN PRN Hypoglycemia Simple Syrup 30 ml 07/26/21 14:56 Simple Syrup 15 Ml FEEDTUBE PRN PRN Hypoglycemia Sodium Bicarbonate 325 mg 07/26/21 14:56 Sodium Bicarbonate 325 Mg Tab FEEDTUBE PRN PRN For Clogged Feeding Tube Sodium Chloride 10 ml 07/25/21 22:00 07/28/21 22:31 Sodium Chloride 0.9% 10 Ml Flush Syringe IV 10 ml BID BLANCA Administration Sodium Chloride 10 ml 07/25/21 16:00 07/26/21 00:08 Sodium Chloride 0.9% 10 Ml Flush Syringe IV 10 ml PRN PRN Administration LINE FLUSH
--- NOTE | 2021-07-29 12:41 | Progress Note ---
<FLORIANMARISABEL ChambersLester - Last Filed: 07/29/21 13:27> Assessment and Plan Assessment and plan: This is a 61 year old male from a SNF with chronic hypoxic resp failure s/p trach, recent COVID 19 infection, ischemic cardiomyopathy IDDM, obesity admitted with acute on chronic resp failure, HAP, hyperkalemia, and lactic acidosis. Neuro: NAD -p.o. oxycodone prn -Reorientation as needed -Maintain sleep-wake cycle -CT head continued mild microvascular angiopathy without clear CT evidence of acute intercranial hemorrhage -Bilateral wrist restraints in place for safety Cardiac: h/o HTN -Cardiology consulted, appreciate recommendations -Blood pressure monitoring per protocol -03/09/21 Echocardiogram LVEF 60-65% -Amlodipine, Labetalol, hydralazine PO Respiratory: Acute on chronic hypercapnic respiratory failure, s/p trach -CCM consulted, appreciate recommendations -A.m. vent settings: AC/PRVC Rate 12, TV 450, Peep 6, FiO2 50% -See RT notes for titration -CPAP and possible tpeice or tcollar -A.m. ABG and CXR noted -VAP bundle -SPO2 monitoring GI: MO, moderate protein calorie malnutrition -24 hours +247 mL -PPI -NTR consulted for tube feedings -s/p PEG tube in place -BR: Senokanicole S : Acute kidney injury (improving), h/o urinary retention -Nephrology consulted, appreciate recommendations -Renal ultrasound shows echogenic kidneys which can be seen with medical renal disease, no hydronephrosis -FeNa indicate prerenal -Monitor intake and output -Renally dose medications -Avoid nephrotoxic medications -Good catheter placed for urinary retention -Trend BMP ID: HAP -Infectious disease consulted, appreciate recommendations -COVID PCR (-) -MRSA PCR positive -07/25 BC x2 NGTD, UC NGTD -Antibiotic therapy with cefepime -f/u blood culture -Monitor WBC and temperature curve Endo: h/o DM -Avoid hypoglycemia -SSI -Accu-Cheks q. 6 Heme: Leukocytosis (resolved) -Heparin subq -Trend CBC -Transfuse hemoglobin less than 7 -Monitor for signs of bleeding -SCDs to BLE while in bed The high probability of a clinically significant, sudden or life threatening deterioration of the [pulm] system(s) required my full and direct attention, intervention and personal management. The aggregate critical care time was [60] minutes. This time is in addition to time spent performing reported procedures but includes the following: [x] Data Review and interpretation [x] Patient assessment and monitoring of vital signs [x] Documentation [x] Medication orders and management Disposition Plan: icu Total Time Spent with Patient (Minutes): 60 History Interval history: This is a 61-year-old male who is a resident of a alf facility with chronic hypoxic respiratory failure s/p trach with vent dependency, recent [place] VID-19 infection, ischemic cardiomyopathy, type 2 diabetes mellitus, obesity who presented to the emergency department on 07/25 via EMS with chief complaints of respiratory distress from his retirement. In the emergency department patient was placed on the ventilator as he was tachypneic, dyspneic and did not improve after suctioning. Work-up in the emergency department revealed lactic acidosis , leukocytosis and CXR revealed possible retrocardiac pneumonia and started on antibiotics for HAP. Patient was admitted to the hospitalist service with consults to [facility] with acute on chronic respiratory failure and HAP. Hospital course to date: 07/26: Stopped Solu-Medrol, given For hyperkalemia, started on tube feedings. Remains on fentanyl and Mucomyst 07/27: Renal indices increased, patient did receive Lasix x1 yesterday. Nephrology was consulted. Urine lites and bilateral renal ultrasound pending. Infectious disease consulted. Bladder scan performed and Good catheter placed. COVID 19 PCR negative 07/28: No acute events reported overnight, worsening renal function-nephrology is on the case. Continue with cefepime per ID. Vent changes per [facility]. 07/29: Slight improvement to renal function tests, remains on assist control. No acute events reported overnight. Hospitalist Physical - Constitutional Vitals: Temp Pulse Resp BP Pulse Ox 98.9 F 78 16 143/74 92 07/29/21 12:00 07/29/21 12:30 07/29/21 12:30 07/29/21 12:30 07/29/21 12:30 General appearance: Present: no acute distress, obese - EENT Eyes: Present: PERRL, EOM intact ENT: hearing intact, clear oral mucosa - Neck Neck: Present: normal ROM - Respiratory Respiratory effort: normal Respiratory: bilateral: CTA, diminished - Cardiovascular Rhythm: regular Heart Sounds: Present: S1 & S2. Absent: systolic murmur, diastolic murmur - Extremities Extremities: no ischemia, pulses intact, pulses symmetrical, normal temperature, normal color, Full ROM Peripheral Pulses: within normal limits - Abdominal General gastrointestinal: soft, non-tender, non-distended, normal bowel sounds - Integumentary Integumentary: Present: warm, dry - Psychiatric Psychiatric: cooperative - Neurologic Neurologic: CNII-XII intact, no focal deficits, moves all extremities - Allied Health Allied health notes reviewed: nursing, RT HEART Score - HEART Score Troponin: Troponin T < 0.010 ng/mL (0.00-0.029) 07/25/21 Unknown Results - Labs CBC & Chem 7: 07/28/21 04:32 07/29/21 05:09 Labs: Laboratory Last Values WBC 8.9 K/mm3 (4.5-11.0) 07/28/21 04:32 RBC 4.07 M/mm3 (3.65-5.03) 07/28/21 04:32 Hgb 11.0 gm/dl (11.8-15.2) L 07/28/21 04:32 Hct 34.4 % (35.5-45.6) L 07/28/21 04:32 MCV 85 fl (84-94) 07/28/21 04:32 MCH 27 pg (28-32) L 07/28/21 04:32 MCHC 32 % (32-34) 07/28/21 04:32 RDW 16.0 % (13.2-15.2) H 07/28/21 04:32 Plt Count 313 K/mm3 (140-440) 07/28/21 04:32 Lymph # (Auto) Lockstitch Sleeve Setter 07/25/21 Unknown Add Manual Diff Complete 07/26/21 03:50 Total Counted 100 07/26/21 03:50 Seg Neuts % (Manual) 96.0 % (40.0-70.0) H 07/26/21 03:50 Band Neutrophils % 0 % 07/26/21 03:50 Lymphocytes % (Manual) 3.0 % (13.4-35.0) L 07/26/21 03:50 Reactive Lymphs % (Man) 0 % 07/26/21 03:50 Monocytes % (Manual) 1.0 % (0.0-7.3) 07/26/21 03:50 Eosinophils % (Manual) 0 % (0.0-4.3) 07/26/21 03:50 Basophils % (Manual) 0 % (0.0-1.8) 07/26/21 03:50 Metamyelocytes % 0 % 07/26/21 03:50 Myelocytes % 0 % 07/26/21 03:50 Promyelocytes % 0 % 07/26/21 03:50 Blast Cells % 0 % 07/26/21 03:50 Nucleated RBC % Not Reportable 07/26/21 03:50 Seg Neutrophils # Man 14.9 K/mm3 (1.8-7.7) H 07/26/21 03:50 Band Neutrophils # 0.0 K/mm3 07/26/21 03:50 Lymphocytes # (Manual) 0.5 K/mm3 (1.2-5.4) L 07/26/21 03:50 Abs React Lymphs (Man) 0.0 K/mm3 07/26/21 03:50 Monocytes # (Manual) 0.2 K/mm3 (0.0-0.8) 07/26/21 03:50 Eosinophils # (Manual) 0.0 K/mm3 (0.0-0.4) 07/26/21 03:50 Basophils # (Manual) 0.0 K/mm3 (0.0-0.1) 07/26/21 03:50 Metamyelocytes # 0.0 K/mm3 07/26/21 03:50 Myelocytes # 0.0 K/mm3 07/26/21 03:50 Promyelocytes # 0.0 K/mm3 07/26/21 03:50 Blast Cells # 0.0 K/mm3 07/26/21 03:50 WBC Morphology Not Reportable 07/26/21 03:50 Hypersegmented Neuts Not Reportable 07/26/21 03:50 Hyposegmented Neuts Not Reportable 07/26/21 03:50 Hypogranular Neuts Not Reportable 07/26/21 03:50 Smudge Cells Not Reportable 07/26/21 03:50 Toxic Granulation Not Reportable 07/26/21 03:50 Toxic Vacuolation Not Reportable 07/26/21 03:50 Dohle Bodies Not Reportable 07/26/21 03:50 Pelger-Huet Anomaly Not Reportable 07/26/21 03:50 Mely Rods Not Reportable 07/26/21 03:50 Platelet Estimate Consistent w auto 07/26/21 03:50 Clumped Platelets Not Reportable 07/26/21 03:50 Plt Clumps, EDTA Not Reportable 07/26/21 03:50 Large Platelets Not Reportable 07/26/21 03:50 Giant Platelets Not Reportable 07/26/21 03:50 Platelet Satelliting Not Reportable 07/26/21 03:50 Plt Morphology Comment Not Reportable 07/26/21 03:50 RBC Morphology Not Reportable 07/26/21 03:50 Dimorphic RBCs Not Reportable 07/26/21 03:50 Polychromasia Not Reportable 07/26/21 03:50 Hypochromasia Not Reportable 07/26/21 03:50 Poikilocytosis Not Reportable 07/26/21 03:50 Anisocytosis 1+ 07/26/21 03:50 Microcytosis Not Reportable 07/26/21 03:50 Macrocytosis Not Reportable 07/26/21 03:50 Spherocytes Few 07/26/21 03:50 Pappenheimer Bodies Not Reportable 07/26/21 03:50 Sickle Cells Not Reportable 07/26/21 03:50 Target Cells Not Reportable 07/26/21 03:50 Tear Drop Cells Not Reportable 07/26/21 03:50 Ovalocytes Not Reportable 07/26/21 03:50 Helmet Cells Not Reportable 07/26/21 03:50 Longo-Talent Bodies Not Reportable 07/26/21 03:50 [place] Rings Not Reportable 07/26/21 03:50 Oliver Cells Not Reportable 07/26/21 03:50 Bite Cells Not Reportable 07/26/21 03:50 Crenated Cell Not Reportable 07/26/21 03:50 Elliptocytes Not Reportable 07/26/21 03:50 Acanthocytes (Spur) Not Reportable 07/26/21 03:50 Rouleaux Not Reportable 07/26/21 03:50 Hemoglobin C Crystals Not Reportable 07/26/21 03:50 Schistocytes Not Reportable 07/26/21 03:50 Malaria parasites Not Reportable 07/26/21 03:50 Shaheen Bodies Not Reportable 07/26/21 03:50 Hem Pathologist Commnt No 07/26/21 03:50 ABG pH 7.425 pH Units (7.350-7.450) 07/29/21 09:00 ABG pCO2 54.7 mm Hg 07/29/21 09:00 ABG pO2 131.5 mm Hg (80.0-90.0) H 07/29/21 09:00 ABG HCO3 35.1 mmol/L (20.0-26.0) H 07/29/21 09:00 ABG O2 Saturation 98.5 % (95.0-99.0) 07/29/21 09:00 ABG O2 Content 16.3 (0.0-44) 07/29/21 09:00 ABG Base Excess 9.1 mmol/L (-2.0-3.0) H 07/29/21 09:00 ABG Hemoglobin 11.8 gm/dl (14.0-18.0) L 07/29/21 09:00 ABG Carboxyhemoglobin 1.3 % (0.0-5.0) 07/29/21 09:00 ABG Methemoglobin 0.6 % (0.0-1.5) 07/29/21 09:00 Oxyhemoglobin 96.7 % (95.0-99.0) 07/29/21 09:00 FiO2 30 % 07/29/21 09:00 Sodium 138 mmol/L (137-145) 07/29/21 05:09 Potassium 4.4 mmol/L (3.6-5.0) 07/29/21 05:09 Chloride 99.3 mmol/L (98-107) 07/29/21 05:09 Carbon Dioxide 32 mmol/L (22-30) H 07/29/21 05:09 Anion Gap 11 mmol/L 07/29/21 05:09 BUN 34 mg/dL (9-20) H 07/29/21 05:09 Creatinine 2.1 mg/dL (0.8-1.3) H 07/29/21 05:09 Estimated GFR 32 ml/min 07/29/21 05:09 BUN/Creatinine Ratio 16 % 07/29/21 05:09 Glucose 124 mg/dL (75-100) H 07/29/21 05:09 POC Glucose 120 mg/dL (70-105) H 07/29/21 05:39 Hemoglobin A1c 5.9 % (4-6) 07/26/21 03:50 Lactic Acid 4.90 mmol/L (0.7-2.0) H* 07/25/21 Unknown Calcium 9.9 mg/dL (8.4-10.2) 07/29/21 05:09 Total Bilirubin 0.20 mg/dL (0.1-1.2) 07/26/21 03:50 AST 19 units/L (5-40) 07/26/21 03:50 ALT 11 units/L (7-56) 07/26/21 03:50 Alkaline Phosphatase 73 units/L (35-129) 07/26/21 03:50 Troponin T < 0.010 ng/mL (0.00-0.029) 07/25/21 Unknown C-Reactive Protein 2.40 mg/dL (0.00-1.30) H 07/27/21 15:57 Total Protein 8.2 g/dL (6.3-8.2) 07/26/21 03:50 Albumin 3.7 g/dL (3.9-5) L 07/26/21 03:50 Albumin/Globulin Ratio 0.8 % 07/26/21 03:50 Procalcitonin 0.77 ng/mL (<0.15) 07/27/21 15:57 Urine Color Yellow (Yellow) 07/25/21 11:19 Urine Turbidity Cloudy (Clear) 07/25/21 11:19 Urine pH 6.0 (5.0-7.0) 07/25/21 11:19 Ur Specific [place] 1.015 (1.003-1.030) 07/25/21 11:19 Urine Protein >500 mg/dL (Negative) 07/25/21 11:19 Urine Glucose (UA) 150 mg/dL (Negative) 07/25/21 11:19 Urine Ketones Neg mg/dL (Negative) 07/25/21 11:19 Urine Blood Neg (Negative) 07/25/21 11:19 Urine Nitrite Neg (Negative) 07/25/21 11:19 Urine Bilirubin Neg (Negative) 07/25/21 11:19 Urine Urobilinogen < 2.0 mg/dL (<2.0) 07/25/21 11:19 Ur Leukocyte Esterase Neg (Negative) 07/25/21 11:19 Urine WBC (Auto) 26.0 /HPF (0.0-6.0) H 07/25/21 11:19 Urine RBC (Auto) 53.0 /HPF (0.0-6.0) 07/25/21 11:19 U Epithel Cells (Auto) 7.0 /HPF (0-13.0) 07/25/21 11:19 Urine Bacteria (Auto) 4+ /HPF (Negative) 07/25/21 11:19 Hyaline Casts 21 /LPF 07/25/21 11:19 Urine Mucus Few /HPF 07/25/21 11:19 Urine Yeast (Budding) 2+ /HPF 07/25/21 11:19 Urine Sperm 3+ /HPF ([employer]BE[employer] REMOVAL) 07/25/21 11:19 Urine Eosinophils None seen (None Seen) 07/27/21 17:45 Urine Creatinine 105.6 mg/dL (0.1-20.0) H 07/27/21 17:45 Urine Creatinine 106.0 mg/dL (0.1-20.0) H 07/27/21 17:45 Protein/Creatinin Ratio 0.28 07/27/21 17:45 Urine Sodium 46 mmol/L 07/27/21 17:45 Urine Total Protein 30 mg/dL (5-11.8) H 07/27/21 17:45 Nasal Screen MRSA (PCR) Positive (Negative) 07/26/21 16:30 Coronavirus (PCR) Negative (Negative) 07/27/21 09:00 Hepatitis A IgM Ab Non-reactive (NonReactive) 07/27/21 18:17 Hep Bs Antigen Non-reactive (Negative) 07/27/21 18:17 Hep B Core IgM Ab Non-reactive (NonReactive) 07/27/21 18:17 Hepatitis C Antibody Non-reactive (NonReactive) 07/27/21 18:17 Microbiology: Microbiology 07/25/21 11:44 Peripheral/Venous Blood Culture - Preliminary NO GROWTH AFTER 4 DAYS 07/25/21 11:23 Peripheral/Venous Blood Culture - Preliminary NO GROWTH AFTER 4 DAYS 07/27/21 18:36 Tracheal Aspirate Sputum Culture - Preliminary Good/IV: Voiding Method Indwelling Catheter Active Medications - Current Medications Current Medications: Generic Name Dose Route Start Last Admin Trade Name Freq PRN Reason Stop Dose Admin Acetaminophen 650 mg 07/25/21 16:00 Acetaminophen 325 Mg Tab PO Q4H PRN Pain MILD(1-3)/Fever >100.5/RAYO Albuterol/Ipratropium 1 ampul 07/26/21 16:00 07/29/21 07:40 Ipratropium/Albuterol Sulfate 3 Ml Ampul.Neb IH 1 ampul Q8HRT BLANCA Administration Amlodipine Besylate 10 mg 07/28/21 10:00 07/29/21 09:37 Amlodipine 5 Mg Tab FEEDTUBE 10 mg QDAY BLANCA Administration Lipase/Protease/Amylase 1 each 07/26/21 14:56 Lipase 10,500/Protease 25,000/Amylase 43,750 (Units) Dr Zambrano FEEDTUBE PRN PRN For Clogged Feeding Tube Dextrose 50 ml 07/26/21 12:22 Dextrose 50% In Water (25gm) 50 Ml Syringe IV Q30MIN PRN Hypoglycemia Protocol Famotidine 10 mg 07/27/21 10:00 07/29/21 09:36 Famotidine 10 Mg Tab FEEDTUBE 10 mg BID BLANCA Administration Heparin Sodium (Porcine) 5,000 unit 07/25/21 16:00 07/29/21 09:37 Heparin 5,000 Unit/1 Ml Vial SUB-Q 5,000 unit Q12HR BLANCA Administration Hydralazine HCl 20 mg 07/27/21 06:00 07/29/21 02:03 Hydralazine 20 Mg/1 Ml Inj IV 20 mg Q6H PRN Administration Blood Pressure Hydralazine HCl 10 mg 07/29/21 14:00 Hydralazine 10 Mg Tab PO Q8HR BLANCA Cefepime HCl 2 gm in 100 mls @ 200 mls/hr 07/27/21 18:00 07/29/21 06:30 Cefepime/Ns 2 Gm/100 Ml IV 200 mls/hr Q12H BLANCA Administration Protocol Insulin Human Regular 0 units 07/26/21 12:00 07/29/21 11:36 Insulin Regular, Human 100 Units/1 Ml SUB-Q Not Given Q6HR [facility] Protocol Labetalol HCl 100 mg 07/28/21 10:00 07/29/21 09:37 Labetalol 100 Mg Tab FEEDTUBE 100 mg BID BLANCA Administration Ondansetron HCl 4 mg 07/25/21 16:00 Ondansetron 4 Mg/2 Ml Inj IV Q8H PRN Nausea And Vomiting Oxycodone/Acetaminophen 1 tab 07/27/21 12:27 Oxycodone /Acetaminophen 5-325mg Tab PO Q6H PRN Pain, Moderate (4-6) Polyethylene Glycol 17 gm 07/26/21 17:04 Polyethylene Glycol 3350 17 Gm Powder PO QDAY PRN Constipation Senna/Docusate Sodium 1 tab 07/26/21 22:00 07/28/21 22:28 Sennosides/Docusate Sodium 8.6/50 Mg Tab PO 1 tab QHS BLANCA Administration Simple Syrup 15 ml 07/26/21 14:56 Simple Syrup 15 Ml FEEDTUBE PRN PRN Hypoglycemia Simple Syrup 30 ml 07/26/21 14:56 Simple Syrup 15 Ml FEEDTUBE PRN PRN Hypoglycemia Sodium Bicarbonate 325 mg 07/26/21 14:56 Sodium Bicarbonate 325 Mg Tab FEEDTUBE PRN PRN For Clogged Feeding Tube Sodium Chloride 10 ml 07/25/21 22:00 07/29/21 11:37 Sodium Chloride 0.9% 10 Ml Flush Syringe IV 10 ml BID BLANCA Administration Sodium Chloride 10 ml 07/25/21 16:00 07/26/21 00:08 Sodium Chloride 0.9% 10 Ml Flush Syringe IV 10 ml PRN PRN Administration LINE FLUSH Nutrition/Malnutrition Assess - Dietary Evaluation Nutrition/Malnutrition Findings: Nutrition Notes Start: 07/26/21 14:26 Freq: Status: Active Protocol: Document 07/28/21 15:11 [facility] (Rec: 07/28/21 15:21 [facility] [id number]) Nutrition Notes Initial or Follow up Reassessment Current Diagnosis Acute Kidney Injury,Diabetes, Hypertension,Respiratory Failure Other Pertinent Diagnosis Pneu Current Diet TF - Glucerna 1.2 at 65ml/hr Labs/Tests Na 135 BUN 40 Cr 2.3 A1C 5.9 Pertinent Medications Reviewed Height 6 ft Weight 113.398 kg [place] Body Weight (kg) 80.90 BMI 33.9 Weight Status Obese Subjective/Other Information Per RN, pt tolerating TF at goal rate. Pt remains on vent support. Percent of energy/protein needs met: 79% energy 100% pro Burn Absent Trauma Absent #1 Nutrition Diagnosis Swallowing difficulty Diagnosis Progress(for reassessment Continues documentation) Is patient on ventilator? Yes Is Patient Ambulatory and/or Out of Bed No REE-([place]-St. Jeor-confined to bed) 2365.068 Kcal/Kg value to use for calculation 14 Approximate Energy Requirements Using 1588 kcal/Kg Calculation Used for Recommendations 65-70% REE Additional Notes Energy needs: 6045-2261 kcal/ day Pro needs 0.8-1.2g/kg adjBW: 78-117g/day Fluid needs 1ml/kcal Nutrition Intervention Nutrition Support: Decrease TF rate to 55ml/hr with 85ml water flush q4h. Kcal 1,584 Protein (gm) 79 Carbohydrates (gm) 151 Fat (gm) 79 Fluid (mL) 1,063 Fiber (gm) 21 Goal #1 TF tolerance Goal #2 TF to meet 65-70% energy and at least 75% pro needs Anticipated Discharge Needs: Continue TF Follow-Up By: 07/31/21 Additional Comments F/U: TF rate decrease/ tolerance, vent status, renal function <RAFAEL DOMINGUEZ - Last Filed: 08/01/21 10:17> Assessment and Plan Assessment and plan: I saw and evaluated the patient. Discussed with the nurse practitioner and agree with their findings and plan as documented in this note. Hospitalist Physical - Constitutional Vitals: Temp Pulse Resp BP Pulse Ox 98.3 F 78 20 147/79 98 08/01/21 05:29 08/01/21 05:29 08/01/21 05:29 08/01/21 05:29 08/01/21 05:29 HEART Score - HEART Score Troponin: Troponin T < 0.010 ng/mL (0.00-0.029) 07/25/21 Unknown Results - Labs CBC & Chem 7: 07/30/21 04:19 08/01/21 05:42 Labs: Laboratory Last Values WBC 7.4 K/mm3 (4.5-11.0) 07/30/21 04:19 RBC 3.93 M/mm3 (3.65-5.03) 07/30/21 04:19 Hgb 10.9 gm/dl (11.8-15.2) L 07/30/21 04:19 Hct 32.6 % (35.5-45.6) L 07/30/21 04:19 MCV 83 fl (84-94) L 07/30/21 04:19 MCH 28 pg (28-32) 07/30/21 04:19 MCHC 34 % (32-34) 07/30/21 04:19 RDW 16.2 % (13.2-15.2) H 07/30/21 04:19 Plt Count 324 K/mm3 (140-440) 07/30/21 04:19 Lymph # (Auto) Lockstitch Sleeve Setter 07/25/21 Unknown Add Manual Diff Complete 07/26/21 03:50 Total Counted 100 07/26/21 03:50 Seg Neuts % (Manual) 96.0 % (40.0-70.0) H 07/26/21 03:50 Band Neutrophils % 0 % 07/26/21 03:50 Lymphocytes % (Manual) 3.0 % (13.4-35.0) L 07/26/21 03:50 Reactive Lymphs % (Man) 0 % 07/26/21 03:50 Monocytes % (Manual) 1.0 % (0.0-7.3) 07/26/21 03:50 Eosinophils % (Manual) 0 % (0.0-4.3) 07/26/21 03:50 Basophils % (Manual) 0 % (0.0-1.8) 07/26/21 03:50 Metamyelocytes % 0 % 07/26/21 03:50 Myelocytes % 0 % 07/26/21 03:50 Promyelocytes % 0 % 07/26/21 03:50 Blast Cells % 0 % 07/26/21 03:50 Nucleated RBC % Not Reportable 07/26/21 03:50 Seg Neutrophils # Man 14.9 K/mm3 (1.8-7.7) H 07/26/21 03:50 Band Neutrophils # 0.0 K/mm3 07/26/21 03:50 Lymphocytes # (Manual) 0.5 K/mm3 (1.2-5.4) L 07/26/21 03:50 Abs React Lymphs (Man) 0.0 K/mm3 07/26/21 03:50 Monocytes # (Manual) 0.2 K/mm3 (0.0-0.8) 07/26/21 03:50 Eosinophils # (Manual) 0.0 K/mm3 (0.0-0.4) 07/26/21 03:50 Basophils # (Manual) 0.0 K/mm3 (0.0-0.1) 07/26/21 03:50 Metamyelocytes # 0.0 K/mm3 07/26/21 03:50 Myelocytes # 0.0 K/mm3 07/26/21 03:50 Promyelocytes # 0.0 K/mm3 07/26/21 03:50 Blast Cells # 0.0 K/mm3 07/26/21 03:50 WBC Morphology Not Reportable 07/26/21 03:50 Hypersegmented Neuts Not Reportable 07/26/21 03:50 Hyposegmented Neuts Not Reportable 07/26/21 03:50 Hypogranular Neuts Not Reportable 07/26/21 03:50 Smudge Cells Not Reportable 07/26/21 03:50 Toxic Granulation Not Reportable 07/26/21 03:50 Toxic Vacuolation Not Reportable 07/26/21 03:50 Dohle Bodies Not Reportable 07/26/21 03:50 Pelger-Huet Anomaly Not Reportable 07/26/21 03:50 Mely Rods Not Reportable 07/26/21 03:50 Platelet Estimate Consistent w auto 07/26/21 03:50 Clumped Platelets Not Reportable 07/26/21 03:50 Plt Clumps, EDTA Not Reportable 07/26/21 03:50 Large Platelets Not Reportable 07/26/21 03:50 Giant Platelets Not Reportable 07/26/21 03:50 Platelet Satelliting Not Reportable 07/26/21 03:50 Plt Morphology Comment Not Reportable 07/26/21 03:50 RBC Morphology Not Reportable 07/26/21 03:50 Dimorphic RBCs Not Reportable 07/26/21 03:50 Polychromasia Not Reportable 07/26/21 03:50 Hypochromasia Not Reportable 07/26/21 03:50 Poikilocytosis Not Reportable 07/26/21 03:50 Anisocytosis 1+ 07/26/21 03:50 Microcytosis Not Reportable 07/26/21 03:50 Macrocytosis Not Reportable 07/26/21 03:50 Spherocytes Few 07/26/21 03:50 Pappenheimer Bodies Not Reportable 07/26/21 03:50 Sickle Cells Not Reportable 07/26/21 03:50 Target Cells Not Reportable 07/26/21 03:50 Tear Drop Cells Not Reportable 07/26/21 03:50 Ovalocytes Not Reportable 07/26/21 03:50 Helmet Cells Not Reportable 07/26/21 03:50 Longo-Talent Bodies Not Reportable 07/26/21 03:50 [place] Rings Not Reportable 07/26/21 03:50 [place] Cells Not Reportable 07/26/21 03:50 Bite Cells Not Reportable 07/26/21 03:50 Crenated Cell Not Reportable 07/26/21 03:50 Elliptocytes Not Reportable 07/26/21 03:50 Acanthocytes (Spur) Not Reportable 07/26/21 03:50 Rouleaux Not Reportable 07/26/21 03:50 Hemoglobin C Crystals Not Reportable 07/26/21 03:50 Schistocytes Not Reportable 07/26/21 03:50 Malaria parasites Not Reportable 07/26/21 03:50 Shaheen Bodies Not Reportable 07/26/21 03:50 Hem Pathologist Commnt No 07/26/21 03:50 ABG pH 7.449 pH Units (7.350-7.450) 07/29/21 20:45 ABG pCO2 51.3 mm Hg 07/29/21 20:45 ABG pO2 85.8 mm Hg (80.0-90.0) 07/29/21 20:45 ABG HCO3 34.7 mmol/L (20.0-26.0) H 07/29/21 20:45 ABG O2 Saturation 97.0 % (95.0-99.0) 07/29/21 20:45 ABG O2 Content 15.7 (0.0-44) 07/29/21 20:45 ABG Base Excess 9.3 mmol/L (-2.0-3.0) H 07/29/21 20:45 ABG Hemoglobin 11.7 gm/dl (14.0-18.0) L 07/29/21 20:45 ABG Carboxyhemoglobin 1.2 % (0.0-5.0) 07/29/21 20:45 ABG Methemoglobin 0.6 % (0.0-1.5) 07/29/21 20:45 Oxyhemoglobin 95.2 % (95.0-99.0) 07/29/21 20:45 FiO2 35 % 07/29/21 20:45 Sodium 141 mmol/L (137-145) 08/01/21 05:42 Potassium 4.7 mmol/L (3.6-5.0) 08/01/21 05:42 Chloride 99.7 mmol/L (98-107) 08/01/21 05:42 Carbon Dioxide 33 mmol/L (22-30) H 08/01/21 05:42 Anion Gap 13 mmol/L 08/01/21 05:42 BUN 29 mg/dL (9-20) H 08/01/21 05:42 Creatinine 2.0 mg/dL (0.8-1.3) H 08/01/21 05:42 Estimated GFR 34 ml/min 08/01/21 05:42 BUN/Creatinine Ratio 15 % 08/01/21 05:42 Glucose 106 mg/dL (75-100) H 08/01/21 05:42 POC Glucose 105 mg/dL (70-105) 08/01/21 05:37 Hemoglobin A1c 5.9 % (4-6) 07/26/21 03:50 Lactic Acid 4.90 mmol/L (0.7-2.0) H* 07/25/21 Unknown Calcium 9.9 mg/dL (8.4-10.2) 08/01/21 05:42 Total Bilirubin 0.20 mg/dL (0.1-1.2) 07/26/21 03:50 AST 19 units/L (5-40) 07/26/21 03:50 ALT 11 units/L (7-56) 07/26/21 03:50 Alkaline Phosphatase 73 units/L (35-129) 07/26/21 03:50 Troponin T < 0.010 ng/mL (0.00-0.029) 07/25/21 Unknown C-Reactive Protein 2.40 mg/dL (0.00-1.30) H 07/27/21 15:57 Total Protein 8.2 g/dL (6.3-8.2) 07/26/21 03:50 Albumin 3.7 g/dL (3.9-5) L 07/26/21 03:50 Albumin/Globulin Ratio 0.8 % 07/26/21 03:50 Procalcitonin 0.77 ng/mL (<0.15) 07/27/21 15:57 Urine Color Yellow (Yellow) 07/25/21 11:19 Urine Turbidity Cloudy (Clear) 07/25/21 11:19 Urine pH 6.0 (5.0-7.0) 07/25/21 11:19 Ur Specific [place] 1.015 (1.003-1.030) 07/25/21 11:19 Urine Protein >500 mg/dL (Negative) 07/25/21 11:19 Urine Glucose (UA) 150 mg/dL (Negative) 07/25/21 11:19 Urine Ketones Neg mg/dL (Negative) 07/25/21 11:19 Urine Blood Neg (Negative) 07/25/21 11:19 Urine Nitrite Neg (Negative) 07/25/21 11:19 Urine Bilirubin Neg (Negative) 07/25/21 11:19 Urine Urobilinogen < 2.0 mg/dL (<2.0) 07/25/21 11:19 Ur Leukocyte Esterase Neg (Negative) 07/25/21 11:19 Urine WBC (Auto) 26.0 /HPF (0.0-6.0) H 07/25/21 11:19 Urine RBC (Auto) 53.0 /HPF (0.0-6.0) 07/25/21 11:19 U Epithel Cells (Auto) 7.0 /HPF (0-13.0) 07/25/21 11:19 Urine Bacteria (Auto) 4+ /HPF (Negative) 07/25/21 11:19 Hyaline Casts 21 /LPF 07/25/21 11:19 Urine Mucus Few /HPF 07/25/21 11:19 Urine Yeast (Budding) 2+ /HPF 07/25/21 11:19 Urine Sperm 3+ /HPF ([employer] REMOVAL) 07/25/21 11:19 Urine Eosinophils None seen (None Seen) 07/27/21 17:45 Urine Creatinine 105.6 mg/dL (0.1-20.0) H 07/27/21 17:45 Urine Creatinine 106.0 mg/dL (0.1-20.0) H 07/27/21 17:45 Protein/Creatinin Ratio 0.28 07/27/21 17:45 Urine Sodium 46 mmol/L 07/27/21 17:45 Urine Total Protein 30 mg/dL (5-11.8) H 07/27/21 17:45 Nasal Screen MRSA (PCR) Positive (Negative) 07/26/21 16:30 Proteinase 3 (PR3) Ab <1.0 AI (<1.0) 07/27/21 18:17 Myeloperoxidase Ab <1.0 AI (<1.0) 07/27/21 18:17 Complement C3 149 mg/dL (82-185) 07/27/21 18:17 Coronavirus (PCR) Negative (Negative) 07/27/21 09:00 SARS-CoV-2 (PCR) Negative (Negative) 07/31/21 13:05 Hepatitis A IgM Ab Non-reactive (NonReactive) 07/27/21 18:17 Hep Bs Antigen Non-reactive (Negative) 07/27/21 18:17 Hep B Core IgM Ab Non-reactive (NonReactive) 07/27/21 18:17 Hepatitis C Antibody Non-reactive (NonReactive) 07/27/21 18:17 Good/IV: Voiding Method Indwelling Catheter Active Medications - Current Medications Current Medications: Generic Name Dose Route Start Last Admin Trade Name Freq PRN Reason Stop Dose Admin Acetaminophen 650 mg 07/25/21 16:00 Acetaminophen 325 Mg Tab PO Q4H PRN Pain MILD(1-3)/Fever >100.5/RAYO Albuterol/Ipratropium 1 ampul 07/26/21 16:00 08/01/21 07:43 Ipratropium/Albuterol Sulfate 3 Ml Ampul.Neb IH 1 ampul Q8HRT BLANCA Administration Amlodipine Besylate 10 mg 07/28/21 10:00 07/31/21 09:36 Amlodipine 5 Mg Tab FEEDTUBE 10 mg QDAY BLANCA Administration Lipase/Protease/Amylase 1 each 07/26/21 14:56 Lipase 10,500/Protease 25,000/Amylase 43,750 (Units) Dr Zambrano FEEDTUBE PRN PRN For Clogged Feeding Tube Dextrose 50 ml 07/26/21 12:22 Dextrose 50% In Water (25gm) 50 Ml Syringe IV Q30MIN PRN Hypoglycemia Protocol Famotidine 10 mg 07/27/21 10:00 07/31/21 22:27 Famotidine 10 Mg Tab FEEDTUBE 10 mg BID BLANCA Administration Heparin Sodium (Porcine) 5,000 unit 07/25/21 16:00 07/31/21 22:27 Heparin 5,000 Unit/1 Ml Vial SUB-Q 5,000 unit Q12HR BLANCA Administration Hydralazine HCl 25 mg 07/30/21 14:00 08/01/21 05:27 Hydralazine 25 Mg Tab PO 25 mg Q8HR BLANCA Administration Hydralazine HCl 15 mg 07/30/21 07:44 Hydralazine 20 Mg/1 Ml Inj IV Q6H PRN Blood Pressure Insulin Human Regular 0 units 07/26/21 12:00 08/01/21 05:26 Insulin Regular, Human 100 Units/1 Ml SUB-Q Not Given Q6HR [facility] Protocol Labetalol HCl 100 mg 07/28/21 10:00 07/31/21 22:32 Labetalol 100 Mg Tab FEEDTUBE 100 mg BID BLANCA Administration Midazolam HCl 2 mg 07/30/21 14:34 Midazolam 2 Mg/2 Ml Inj IV 08/01/21 14:33 Q2H PRN Agitation Ondansetron HCl 4 mg 07/25/21 16:00 Ondansetron 4 Mg/2 Ml Inj IV Q8H PRN Nausea And Vomiting Oxycodone/Acetaminophen 1 tab 07/27/21 12:27 07/30/21 20:45 Oxycodone /Acetaminophen 5-325mg Tab PO 1 tab Q6H PRN Administration Pain, Moderate (4-6) Polyethylene Glycol 17 gm 07/26/21 17:04 Polyethylene Glycol 3350 17 Gm Powder PO QDAY PRN Constipation Senna/Docusate Sodium 1 tab 07/26/21 22:00 07/31/21 22:27 Sennosides/Docusate Sodium 8.6/50 Mg Tab PO 1 tab QHS BLANCA Administration Simple Syrup 15 ml 07/26/21 14:56 Simple Syrup 15 Ml FEEDTUBE PRN PRN Hypoglycemia Simple Syrup 30 ml 07/26/21 14:56 Simple Syrup 15 Ml FEEDTUBE PRN PRN Hypoglycemia Sodium Bicarbonate 325 mg 07/26/21 14:56 Sodium Bicarbonate 325 Mg Tab FEEDTUBE PRN PRN For Clogged Feeding Tube Sodium Chloride 10 ml 07/25/21 22:00 07/31/21 22:27 Sodium Chloride 0.9% 10 Ml Flush Syringe IV 10 ml BID BLANCA Administration Sodium Chloride 10 ml 07/25/21 16:00 07/26/21 00:08 Sodium Chloride 0.9% 10 Ml Flush Syringe IV 10 ml PRN PRN Administration LINE FLUSH Nutrition/Malnutrition Assess - Dietary Evaluation Nutrition/Malnutrition Findings: Nutrition Notes Start: 07/26/21 14:26 Freq: Status: Active Protocol: Document 07/31/21 14:46 BRIAN (Rec: 07/31/21 14:52 BRIAN [id number]) Nutrition Notes Initial or Follow up Reassessment Current Diagnosis Acute Kidney Injury,Diabetes, Hypertension,Respiratory Failure Other Pertinent Diagnosis Pneu Current Diet TF - Glucerna 1.2 at 55ml/hr Labs/Tests BUN 30 Cr 2.1 Pertinent Medications Reviewed Height 6 ft Weight 110 kg [place] Body Weight (kg) 80.90 BMI 32.8 Weight change and time frame Wt change noted Weight Status Obese Subjective/Other Information Pt now on T-piece with 35% FiO2. Per RN, he is tolerating TF at goal rate of 55ml/hr. Per nephrology note on yesterday, no need for dialysis at this time. Percent of energy/protein needs met: 68% energy 100% pro Burn Absent Trauma Absent #1 Nutrition Diagnosis Swallowing difficulty Diagnosis Progress(for reassessment Continues documentation) Is patient on ventilator? No Is Patient Ambulatory and/or Out of Bed No REE-([place]-[facility]. Jeor-confined to bed) [phone] Calculation Used for Recommendations 65-70% REE Additional Notes Energy needs: 8966-1714 kcal/ day Pro needs 0.8-1.2g/kg adjBW: 76-115g/day Fluid needs 1ml/kcal Nutrition Intervention Nutrition Support: Continue Glucerna 1.2 at 55ml/ hr with 85ml water flush q4h. Kcal 1,584 Protein (gm) 79 Carbohydrates (gm) 151 Fat (gm) 79 Fluid (mL) 1,063 Fiber (gm) 21 Goal #1 TF tolerance Goal #2 TF to meet 65-70% energy and at least 75% pro needs Follow-Up By: 08/07/21 Additional Comments F/U: stable TF, wt, renal function
--- NOTE | 2021-07-29 13:39 | Progress Note ---
Assessment and Plan Acute and chronic hypoxemic and hypercapnic Respiratory Failure 2/2 HCAP on MVS HCAP AE-CHF exacerbation s/p Tracheostomy Oropharyngeal dysphagia s/p PEG h/o Ischemic cardiomyopathy - placed on SBT via PSV with p-supp @ 10 cm H2O and tolerating very well - place on ATP after 1-2 hours as tolerated - ABG @ 9 pm tonight to assess ventilation and continue ATP RTC if no significant acidosis / uncompensated hypercapnia - continue care as below otherwise; - complete AB's per ID rec's (Cefepime) - continue contact isolation re: MRSA - continue Daily SAT and SBT assessment as tolerated - continue to wean supplemental oxygen for target O2 sat's > 90% acutely - VAP bundle addressed - continue lung protective strategies - continue bronchodilators with pulmonary hygiene per RT - wean per pulmonary driven protocols otherwise - continue accuchecks with glycemic control per SSI (While critically ill target blood glucose of 140-180 mg/dL; avoid hypoglycemia) - sedation prn for target RASS 0 to -1 - avoid nephrotoxins, renally dose all medications - continue to avoid benzodiazepine's, reduce the possibility of delirium - prn analgesia per CPOT score - Maintenance of sleep-wake cycle, avoid delirium - continue enteral nutritional support at goal rate as tolerated - G.I. & VTE prophylaxis - PT/OT/ROM exercises - continue mobility protocols for pressure ulcer prophylaxis - Monitor hemodynamics closely - continue other care per attending / other consultants - discharge planning ongoing concurrently COVID SPECIFIC INTERVENTIONS - COVID-19 PCR negative .... Re-evaluate in am & prn CONDITION: CRITICAL PROGNOSIS: GUARDED CODE STATUS: FULL CODE The high probability of a clinically significant, sudden or life-threatening deterioration of the [respiratory, cardiovascular & neurologic] system(s) required my full and direct attention, intervention and personal management. The aggregate critical care time was [34] minutes without overlap. Time includes spent on; [x] Data Review and interpretation [x] Patient assessment and monitoring of vital signs [x] Documentation [x] Medication orders and management Subjective Date of service: 07/29/21 Principal diagnosis: Ac and ch hypoxemic and hypercapnic Resp Failure; HCAP; AE- CHF; s/p Trach Interval history: Patient is seen today for: Acute and chronic hypoxemic and hypercapnic Respiratory Failure; HCAP; AE-CHF; s/p Tracheostomy; H/O Ischemic cardiomyopathy Seen and examined at bedside; 24hour events reviewed; nursing and respiratory care staff consulted; no adverse overnight events reported to me; resting peacefully in bed; remains on MVS and tolerating volume ventilation well; denies acute chest pain or palpitations; no N/V/F/C Objective Vital Signs - 12hr 07/29/21 07/29/21 07/29/21 01:41 01:51 02:00 Temperature Pulse Rate 81 86 87 Pulse Rate [ Anterior Left Throughout] Pulse Rate [ Anterior Right Throughout] Pulse Rate [ From Monitor] Respiratory 11 L 14 16 Rate Respiratory Rate [Anterior Left Throughout ] Respiratory Rate [Anterior Right Throughout] Blood Pressure 174/81 174/81 178/88 O2 Sat by Pulse 97 97 95 Oximetry O2 Sat by Pulse Oximetry [ Assessment] 07/29/21 07/29/21 07/29/21 02:03 02:11 02:21 Temperature Pulse Rate 82 79 84 Pulse Rate [ Anterior Left Throughout] Pulse Rate [ Anterior Right Throughout] Pulse Rate [ From Monitor] Respiratory 13 15 Rate Respiratory Rate [Anterior Left Throughout ] Respiratory Rate [Anterior Right Throughout] Blood Pressure 178/88 178/88 178/88 O2 Sat by Pulse 97 97 Oximetry O2 Sat by Pulse Oximetry [ Assessment] 07/29/21 07/29/21 07/29/21 02:30 02:41 02:51 Temperature Pulse Rate 84 88 100 H Pulse Rate [ Anterior Left Throughout] Pulse Rate [ Anterior Right Throughout] Pulse Rate [ From Monitor] Respiratory 15 14 17 Rate Respiratory Rate [Anterior Left Throughout ] Respiratory Rate [Anterior Right Throughout] Blood Pressure 146/66 146/66 146/66 O2 Sat by Pulse 94 96 98 Oximetry O2 Sat by Pulse Oximetry [ Assessment] 07/29/21 07/29/21 07/29/21 03:00 03:11 03:21 Temperature Pulse Rate 91 H 90 92 H Pulse Rate [ Anterior Left Throughout] Pulse Rate [ Anterior Right Throughout] Pulse Rate [ From Monitor] Respiratory 17 16 16 Rate Respiratory Rate [Anterior Left Throughout ] Respiratory Rate [Anterior Right Throughout] Blood Pressure 139/69 139/69 139/69 O2 Sat by Pulse 94 97 97 Oximetry O2 Sat by Pulse Oximetry [ Assessment] 07/29/21 07/29/21 07/29/21 03:30 03:31 03:41 Temperature Pulse Rate 88 82 88 Pulse Rate [ Anterior Left Throughout] Pulse Rate [ Anterior Right Throughout] Pulse Rate [ From Monitor] Respiratory 15 14 Rate Respiratory Rate [Anterior Left Throughout ] Respiratory Rate [Anterior Right Throughout] Blood Pressure 153/74 144/75 153/74 O2 Sat by Pulse 94 98 97 Oximetry O2 Sat by Pulse Oximetry [ Assessment] 07/29/21 07/29/21 07/29/21 03:51 04:00 04:10 Temperature 98.6 F Pulse Rate 115 H 96 H 95 H Pulse Rate [ Anterior Left Throughout] Pulse Rate [ Anterior Right Throughout] Pulse Rate [ 95 H From Monitor] Respiratory 16 17 17 Rate Respiratory Rate [Anterior Left Throughout ] Respiratory Rate [Anterior Right Throughout] Blood Pressure 153/74 141/69 153/74 O2 Sat by Pulse 96 93 97 Oximetry O2 Sat by Pulse Oximetry [ Assessment] 07/29/21 07/29/21 07/29/21 04:21 04:30 04:41 Temperature Pulse Rate 93 H 94 H 89 Pulse Rate [ Anterior Left Throughout] Pulse Rate [ Anterior Right Throughout] Pulse Rate [ From Monitor] Respiratory 17 18 15 Rate Respiratory Rate [Anterior Left Throughout ] Respiratory Rate [Anterior Right Throughout] Blood Pressure 141/69 154/80 154/80 O2 Sat by Pulse 97 93 96 Oximetry O2 Sat by Pulse Oximetry [ Assessment] 07/29/21 07/29/21 07/29/21 04:51 05:00 05:11 Temperature Pulse Rate 90 91 H 92 H Pulse Rate [ Anterior Left Throughout] Pulse Rate [ Anterior Right Throughout] Pulse Rate [ From Monitor] Respiratory 13 16 16 Rate Respiratory Rate [Anterior Left Throughout ] Respiratory Rate [Anterior Right Throughout] Blood Pressure 154/80 142/74 142/74 O2 Sat by Pulse 98 93 96 Oximetry O2 Sat by Pulse Oximetry [ Assessment] 07/29/21 07/29/21 07/29/21 05:21 05:30 05:41 Temperature Pulse Rate 92 H 96 H 95 H Pulse Rate [ Anterior Left Throughout] Pulse Rate [ Anterior Right Throughout] Pulse Rate [ From Monitor] Respiratory 16 13 12 Rate Respiratory Rate [Anterior Left Throughout ] Respiratory Rate [Anterior Right Throughout] Blood Pressure 142/74 154/80 154/80 O2 Sat by Pulse 96 94 97 Oximetry O2 Sat by Pulse Oximetry [ Assessment] 07/29/21 07/29/21 07/29/21 05:51 06:00 06:11 Temperature Pulse Rate 90 88 88 Pulse Rate [ Anterior Left Throughout] Pulse Rate [ Anterior Right Throughout] Pulse Rate [ From Monitor] Respiratory 16 14 15 Rate Respiratory Rate [Anterior Left Throughout ] Respiratory Rate [Anterior Right Throughout] Blood Pressure 154/80 153/80 153/80 O2 Sat by Pulse 97 93 97 Oximetry O2 Sat by Pulse Oximetry [ Assessment] 07/29/21 07/29/21 07/29/21 06:21 06:30 06:41 Temperature Pulse Rate 88 85 85 Pulse Rate [ Anterior Left Throughout] Pulse Rate [ Anterior Right Throughout] Pulse Rate [ From Monitor] Respiratory 14 13 15 Rate Respiratory Rate [Anterior Left Throughout ] Respiratory Rate [Anterior Right Throughout] Blood Pressure 153/80 166/78 166/78 O2 Sat by Pulse 97 94 97 Oximetry O2 Sat by Pulse Oximetry [ Assessment] 07/29/21 07/29/21 07/29/21 06:51 07:00 07:11 Temperature Pulse Rate 86 94 H 95 H Pulse Rate [ Anterior Left Throughout] Pulse Rate [ Anterior Right Throughout] Pulse Rate [ From Monitor] Respiratory 15 14 15 Rate Respiratory Rate [Anterior Left Throughout ] Respiratory Rate [Anterior Right Throughout] Blood Pressure 166/78 164/81 164/81 O2 Sat by Pulse 97 94 97 Oximetry O2 Sat by Pulse Oximetry [ Assessment] 07/29/21 07/29/21 07/29/21 07:21 07:30 07:40 Temperature Pulse Rate 87 85 87 Pulse Rate [ 88 Anterior Left Throughout] Pulse Rate [ 87 Anterior Right Throughout] Pulse Rate [ From Monitor] Respiratory 10 L 14 Rate Respiratory 18 Rate [Anterior Left Throughout ] Respiratory 18 Rate [Anterior Right Throughout] Blood Pressure 164/81 156/84 156/84 O2 Sat by Pulse 98 94 97 Oximetry O2 Sat by Pulse 97 Oximetry [ Assessment] 07/29/21 07/29/21 07/29/21 07:41 07:51 08:00 Temperature 99.1 F Pulse Rate 86 93 H 82 Pulse Rate [ Anterior Left Throughout] Pulse Rate [ Anterior Right Throughout] Pulse Rate [ 95 H From Monitor] Respiratory 13 15 12 Rate Respiratory Rate [Anterior Left Throughout ] Respiratory Rate [Anterior Right Throughout] Blood Pressure 156/84 156/84 157/77 O2 Sat by Pulse 97 95 Oximetry O2 Sat by Pulse Oximetry [ Assessment] 07/29/21 07/29/21 07/29/21 08:11 08:21 08:30 Temperature Pulse Rate 93 H 90 85 Pulse Rate [ Anterior Left Throughout] Pulse Rate [ Anterior Right Throughout] Pulse Rate [ From Monitor] Respiratory 10 L 15 23 Rate Respiratory Rate [Anterior Left Throughout ] Respiratory Rate [Anterior Right Throughout] Blood Pressure 156/84 156/84 146/78 O2 Sat by Pulse 99 98 94 Oximetry O2 Sat by Pulse Oximetry [ Assessment] 07/29/21 07/29/21 07/29/21 08:41 08:51 09:00 Temperature Pulse Rate 86 84 87 Pulse Rate [ Anterior Left Throughout] Pulse Rate [ Anterior Right Throughout] Pulse Rate [ From Monitor] Respiratory 12 14 14 Rate Respiratory Rate [Anterior Left Throughout ] Respiratory Rate [Anterior Right Throughout] Blood Pressure 146/78 146/78 159/87 O2 Sat by Pulse 97 98 95 Oximetry O2 Sat by Pulse Oximetry [ Assessment] 07/29/21 07/29/21 07/29/21 09:11 09:21 09:30 Temperature Pulse Rate 85 82 82 Pulse Rate [ Anterior Left Throughout] Pulse Rate [ Anterior Right Throughout] Pulse Rate [ From Monitor] Respiratory 16 17 15 Rate Respiratory Rate [Anterior Left Throughout ] Respiratory Rate [Anterior Right Throughout] Blood Pressure 159/87 159/87 161/85 O2 Sat by Pulse 98 98 96 Oximetry O2 Sat by Pulse Oximetry [ Assessment] 07/29/21 07/29/21 07/29/21 09:37 09:41 09:51 Temperature Pulse Rate 92 H 86 82 Pulse Rate [ Anterior Left Throughout] Pulse Rate [ Anterior Right Throughout] Pulse Rate [ From Monitor] Respiratory 17 16 Rate Respiratory Rate [Anterior Left Throughout ] Respiratory Rate [Anterior Right Throughout] Blood Pressure 161/85 161/85 161/85 O2 Sat by Pulse 99 98 Oximetry O2 Sat by Pulse Oximetry [ Assessment] 07/29/21 07/29/21 07/29/21 10:00 10:11 10:21 Temperature Pulse Rate 79 81 78 Pulse Rate [ Anterior Left Throughout] Pulse Rate [ Anterior Right Throughout] Pulse Rate [ From Monitor] Respiratory 27 H 15 16 Rate Respiratory Rate [Anterior Left Throughout ] Respiratory Rate [Anterior Right Throughout] Blood Pressure 156/78 156/78 156/78 O2 Sat by Pulse 96 97 97 Oximetry O2 Sat by Pulse Oximetry [ Assessment] 07/29/21 07/29/21 07/29/21 10:30 10:41 10:51 Temperature Pulse Rate 78 78 93 H Pulse Rate [ Anterior Left Throughout] Pulse Rate [ Anterior Right Throughout] Pulse Rate [ From Monitor] Respiratory 16 16 11 L Rate Respiratory Rate [Anterior Left Throughout ] Respiratory Rate [Anterior Right Throughout] Blood Pressure 149/78 149/78 149/78 O2 Sat by Pulse 94 97 97 Oximetry O2 Sat by Pulse Oximetry [ Assessment] 07/29/21 07/29/21 07/29/21 11:00 11:11 11:21 Temperature Pulse Rate 78 81 85 Pulse Rate [ Anterior Left Throughout] Pulse Rate [ Anterior Right Throughout] Pulse Rate [ From Monitor] Respiratory 15 15 14 Rate Respiratory Rate [Anterior Left Throughout ] Respiratory Rate [Anterior Right Throughout] Blood Pressure 143/76 143/76 143/76 O2 Sat by Pulse 94 97 98 Oximetry O2 Sat by Pulse Oximetry [ Assessment] 07/29/21 07/29/21 07/29/21 11:23 11:30 11:41 Temperature Pulse Rate 78 85 78 Pulse Rate [ Anterior Left Throughout] Pulse Rate [ Anterior Right Throughout] Pulse Rate [ From Monitor] Respiratory 15 14 Rate Respiratory Rate [Anterior Left Throughout ] Respiratory Rate [Anterior Right Throughout] Blood Pressure 149/78 161/84 161/84 O2 Sat by Pulse 97 95 97 Oximetry O2 Sat by Pulse Oximetry [ Assessment] 07/29/21 07/29/21 07/29/21 11:51 12:00 12:11 Temperature 98.9 F Pulse Rate 83 84 82 Pulse Rate [ Anterior Left Throughout] Pulse Rate [ Anterior Right Throughout] Pulse Rate [ 95 H From Monitor] Respiratory 17 17 22 Rate Respiratory Rate [Anterior Left Throughout ] Respiratory Rate [Anterior Right Throughout] Blood Pressure 161/84 156/82 156/82 O2 Sat by Pulse 98 96 99 Oximetry O2 Sat by Pulse Oximetry [ Assessment] 07/29/21 07/29/21 12:21 12:30 Temperature Pulse Rate 76 78 Pulse Rate [ Anterior Left Throughout] Pulse Rate [ Anterior Right Throughout] Pulse Rate [ From Monitor] Respiratory 13 16 Rate Respiratory Rate [Anterior Left Throughout ] Respiratory Rate [Anterior Right Throughout] Blood Pressure 156/82 143/74 O2 Sat by Pulse 98 92 Oximetry O2 Sat by Pulse Oximetry [ Assessment] Constitutional: no acute distress, other (atraumatic, normocephalic, trach to vent with mild ventilator dyssynchrony) Eyes: non-icteric ENT: oropharynx moist, other (midline tracheostomy) Neck: supple, no lymphadenopathy, no JVD Effort: normal Ascultation: Bilateral: diminished breath sounds, rhonchi (scant) Percussion: Bilateral: not dull Cardiovascular: regular rate and rhythm, other (S1,S2) Gastrointestinal: normoactive bowel sounds, soft, non-tender, non-distended (protuberant), other (PEG) Integumentary: normal Extremities: no cyanosis, pulses normal, no ischemia or petechiae, edema Neurologic: non-focal exam (grossly), pupils equal and round, CN II-XII normal, other (moves all extremities) Psychiatric: mood appropriate, affect normal CBC and BMP: 07/28/21 04:32 07/29/21 05:09 ABG, PT/INR, D-dimer: ABG ABG pH 7.425 pH Units (7.350-7.450) 07/29/21 09:00 ABG pCO2 54.7 mm Hg 07/29/21 09:00 ABG pO2 131.5 mm Hg (80.0-90.0) H 07/29/21 09:00 ABG O2 Saturation 98.5 % (95.0-99.0) 07/29/21 09:00 Abnormal lab findings: Abnormal Labs 07/25/21 07/25/21 07/25/21 11:19 21:50 Unknown WBC 18.1 H Hgb Hct MCH RDW 16.2 H Seg Neuts % (Manual) Lymphocytes % (Manual) Seg Neutrophils # Man 12.1 H Lymphocytes # (Manual) ABG pH 6.917 L* ABG pO2 331.8 H ABG HCO3 39.3 H ABG O2 Saturation 99.4 H ABG Base Excess ABG Hemoglobin 12.1 L Oxyhemoglobin Sodium Potassium Chloride Carbon Dioxide BUN Creatinine Glucose POC Glucose Lactic Acid C-Reactive Protein Albumin Urine WBC (Auto) 26.0 H Urine Creatinine Urine Total Protein 07/25/21 07/25/21 07/25/21 Unknown Unknown Unknown WBC Hgb Hct MCH RDW Seg Neuts % (Manual) Lymphocytes % (Manual) Seg Neutrophils # Man Lymphocytes # (Manual) ABG pH 7.029 L* ABG pO2 97.5 H ABG HCO3 37.2 H ABG O2 Saturation 93.5 L ABG Base Excess ABG Hemoglobin 12.7 L Oxyhemoglobin 91.7 L Sodium 129 L Potassium Chloride 90.1 L Carbon Dioxide BUN 8 L Creatinine Glucose 258 H POC Glucose Lactic Acid 4.90 H* C-Reactive Protein Albumin 3.8 L Urine WBC (Auto) Urine Creatinine Urine Total Protein 07/25/21 07/26/21 07/26/21 Unknown 00:10 03:50 WBC 15.5 H Hgb Hct MCH RDW 15.4 H Seg Neuts % (Manual) 96.0 H Lymphocytes % (Manual) 3.0 L Seg Neutrophils # Man 14.9 H Lymphocytes # (Manual) 0.5 L ABG pH 7.217 L ABG pO2 162.9 H ABG HCO3 34.3 H ABG O2 Saturation ABG Base Excess 4.0 H ABG Hemoglobin 12.5 L Oxyhemoglobin Sodium Potassium Chloride Carbon Dioxide BUN Creatinine Glucose POC Glucose 158 H Lactic Acid C-Reactive Protein Albumin Urine WBC (Auto) Urine Creatinine Urine Total Protein 07/26/21 07/26/21 07/26/21 03:50 04:30 07:44 WBC Hgb Hct MCH RDW Seg Neuts % (Manual) Lymphocytes % (Manual) Seg Neutrophils # Man Lymphocytes # (Manual) ABG pH 7.170 L* ABG pO2 65.5 L ABG HCO3 33.9 H ABG O2 Saturation ABG Base Excess ABG Hemoglobin 12.0 L Oxyhemoglobin 93.5 L Sodium 132 L Potassium 6.0 H D 5.6 H Chloride 93.2 L Carbon Dioxide BUN Creatinine Glucose 171 H POC Glucose Lactic Acid C-Reactive Protein Albumin 3.7 L Urine WBC (Auto) Urine Creatinine Urine Total Protein 07/26/21 07/26/21 07/27/21 12:34 17:18 04:54 WBC 11.9 H Hgb 11.1 L Hct 34.5 L MCH 27 L RDW 15.5 H Seg Neuts % (Manual) Lymphocytes % (Manual) Seg Neutrophils # Man Lymphocytes # (Manual) ABG pH 7.286 L ABG pO2 100.0 H ABG HCO3 31.4 H ABG O2 Saturation ABG Base Excess 3.2 H ABG Hemoglobin 11.8 L Oxyhemoglobin Sodium Potassium Chloride Carbon Dioxide BUN Creatinine Glucose POC Glucose 111 H Lactic Acid C-Reactive Protein Albumin Urine WBC (Auto) Urine Creatinine Urine Total Protein 07/27/21 07/27/21 07/27/21 04:54 10:30 15:57 WBC Hgb Hct MCH RDW Seg Neuts % (Manual) Lymphocytes % (Manual) Seg Neutrophils # Man Lymphocytes # (Manual) ABG pH ABG pO2 76.9 L ABG HCO3 30.2 H ABG O2 Saturation ABG Base Excess 3.9 H ABG Hemoglobin 11.2 L Oxyhemoglobin Sodium 136 L Potassium Chloride Carbon Dioxide BUN 37 H Creatinine 2.2 H D Glucose POC Glucose Lactic Acid C-Reactive Protein 2.40 H Albumin Urine WBC (Auto) Urine Creatinine Urine Total Protein 07/27/21 07/27/21 07/27/21 17:45 17:45 17:52 WBC Hgb Hct MCH RDW Seg Neuts % (Manual) Lymphocytes % (Manual) Seg Neutrophils # Man Lymphocytes # (Manual) ABG pH ABG pO2 ABG HCO3 ABG O2 Saturation ABG Base Excess ABG Hemoglobin Oxyhemoglobin Sodium Potassium Chloride Carbon Dioxide BUN Creatinine Glucose POC Glucose 114 H Lactic Acid C-Reactive Protein Albumin Urine WBC (Auto) Urine Creatinine 106.0 H 105.6 H Urine Total Protein 30 H 07/28/21 07/28/21 07/28/21 04:32 04:32 11:19 WBC Hgb 11.0 L Hct 34.4 L MCH 27 L RDW 16.0 H Seg Neuts % (Manual) Lymphocytes % (Manual) Seg Neutrophils # Man Lymphocytes # (Manual) ABG pH ABG pO2 ABG HCO3 ABG O2 Saturation ABG Base Excess ABG Hemoglobin Oxyhemoglobin Sodium 135 L Potassium Chloride Carbon Dioxide BUN 40 H Creatinine 2.3 H Glucose 124 H POC Glucose 117 H Lactic Acid C-Reactive Protein Albumin Urine WBC (Auto) Urine Creatinine Urine Total Protein 07/28/21 07/28/21 07/28/21 13:12 17:34 23:54 WBC Hgb Hct MCH RDW Seg Neuts % (Manual) Lymphocytes % (Manual) Seg Neutrophils # Man Lymphocytes # (Manual) ABG pH ABG pO2 103.7 H ABG HCO3 32.7 H ABG O2 Saturation ABG Base Excess 7.1 H ABG Hemoglobin 10.8 L Oxyhemoglobin Sodium Potassium Chloride Carbon Dioxide BUN Creatinine Glucose POC Glucose 124 H 107 H Lactic Acid C-Reactive Protein Albumin Urine WBC (Auto) Urine Creatinine Urine Total Protein 07/29/21 07/29/21 07/29/21 05:09 05:39 09:00 WBC Hgb Hct MCH RDW Seg Neuts % (Manual) Lymphocytes % (Manual) Seg Neutrophils # Man Lymphocytes # (Manual) ABG pH ABG pO2 131.5 H ABG HCO3 35.1 H ABG O2 Saturation ABG Base Excess 9.1 H ABG Hemoglobin 11.8 L Oxyhemoglobin Sodium Potassium Chloride Carbon Dioxide 32 H BUN 34 H Creatinine 2.1 H Glucose 124 H POC Glucose 120 H Lactic Acid C-Reactive Protein Albumin Urine WBC (Auto) Urine Creatinine Urine Total Protein Allied health notes reviewed: nursing
[2021-07-29] MEDS: hydrALAZINE 10 MG TAB PO SCH ×2 (16:55→22:22)
[2021-07-29 21:00] LABS: ABG Base Excess 9.3 mmol/L (-2.0-3.0); ABG HCO3 34.7 mmol/L (20.0-26.0); ABG Methemoglobin 0.6 % (0.0-1.5); ABG PCO2 51.3 mm Hg; ABG PH 7.449 pH Units (7.350-7.450); ABG PO2 85.8 mm Hg (80.0-90.0)
[2021-07-29] MEDS: SENNOSIDES/DOCUSATE SODIUM 8.6/50 MG TAB PO SCH (22:24)
[2021-07-30] MEDS: IPRATROPIUM/ALBUTEROL SULFATE 3 ML AMPUL.NEB IH SCH ×3 (00:20→16:01)
[2021-07-30] MEDS: INSULIN REGULAR, HUMAN 100 UNITS/1 ML SUB-Q SCH ×5 (02:12→21:08)
[2021-07-30 04:43] LABS: Hematocrit 32.6 % (35.5-45.6); Hemoglobin 10.9 gm/dl (11.8-15.2); Mean Corpuscular HGB Conc 34 % (32-34); Mean Corpuscular Volume 83 fl (84-94); Platelet Count 324 K/mm3 (140-440); Red Blood Count 3.93 M/mm3 (3.65-5.03); Red Cell Distribution Width 16.2 % (13.2-15.2)
[2021-07-30 04:59] LABS: Calcium 9.9 mg/dL (8.4-10.2)
[2021-07-30] MEDS: hydrALAZINE 10 MG TAB PO SCH (05:53)
[2021-07-30] MEDS: CEFEPIME/NS 2 GM/100 ML 2 GM/100 ML BAG IV SCH ×2 (05:54→17:33)
[2021-07-30] MEDS ORDERED: hydrALAZINE 20 MG/1 ML INJ IV PRN (07:44)
[2021-07-30] MEDS ORDERED: MODAFINIL 100 MG TAB PO SCH (10:00)
[2021-07-30] MEDS: FAMOTIDINE 10 MG TAB FEEDTUBE SCH ×2 (10:21→21:04)
[2021-07-30] MEDS: amLODIPine 5 MG TAB FEEDTUBE SCH (10:22)
[2021-07-30] MEDS: HEPARIN 5,000 UNIT/1 ML VIAL SUB-Q SCH ×2 (10:22→21:05)
--- NOTE | 2021-07-30 12:17 | Progress Note ---
Assessment and Plan Assessment and plan: This is a 61 year old male from a SNF with chronic hypoxic resp failure s/p trach, recent COVID 19 infection, ischemic cardiomyopathy IDDM, obesity admitted with acute on chronic resp failure, HAP, hyperkalemia, and lactic acidosis. Neuro: NAD -p.o. oxycodone prn -Reorientation as needed -Maintain sleep-wake cycle -CT head continued mild microvascular angiopathy without clear CT evidence of acute intercranial hemorrhage Cardiac: h/o HTN -Cardiology consulted, appreciate recommendations -Blood pressure monitoring per protocol -03/09/21 Echocardiogram LVEF 60-65% -Amlodipine, Labetalol, hydralazine PO (titrate as tolerated) -Avoid ACEi or ARB in setting of MONIK Respiratory: Acute on chronic hypercapnic respiratory failure, s/p trach -CCM consulted, appreciate recommendations -T piece 35 % Fio2 -See RT notes for titration -Pulm hygiene -SPO2 monitoring GI: MO, moderate protein calorie malnutrition -24 hours + 398 mL -PPI -NTR consulted for tube feedings -s/p PEG tube in place -BR: Jonas Paez : Acute kidney injury (improving), h/o urinary retention -Nephrology consulted, appreciate recommendations -Renal ultrasound shows echogenic kidneys which can be seen with medical renal disease, no hydronephrosis -FeNa indicate prerenal -Monitor intake and output -Renally dose medications -Avoid nephrotoxic medications -Good catheter placed for urinary retention -Trend BMP ID: HAP (POA) -Infectious disease consulted, appreciate recommendations -COVID PCR (-) -MRSA PCR positive -07/25 BC x2 NGTD, UC NGTD -Antibiotic therapy with cefepime -f/u blood culture -Monitor WBC and temperature curve Endo: h/o DM -Avoid hypoglycemia -SSI -Accu-Cheks q. 6 Heme: Leukocytosis -Heparin subq -Trend CBC -Transfuse hemoglobin less than 7 -Monitor for signs of bleeding -SCDs to BLE while in bed The high probability of a clinically significant, sudden or life threatening deterioration of the [pulm] system(s) required my full and direct attention, intervention and personal management. The aggregate critical care time was [60] minutes. This time is in addition to time spent performing reported procedures but includes the following: [x] Data Review and interpretation [x] Patient assessment and monitoring of vital signs [x] Documentation [x] Medication orders and management Disposition Plan: icu Total Time Spent with Patient (Minutes): 60 History Interval history: This is a 61-year-old male who is a resident of a half-way facility with chronic hypoxic respiratory failure s/p trach with vent dependency, recent COVID-19 infection, ischemic cardiomyopathy, type 2 diabetes mellitus, obesity who presented to the emergency department on 07/25 via EMS with chief complaints of respiratory distress from his custodial. In the emergency department patient was placed on the ventilator as he was tachypneic, dyspneic and did not improve after suctioning. Work-up in the emergency department revealed lactic acidosis, leukocytosis and CXR revealed possible retrocardiac pneumonia and st arted on antibiotics for HAP. Patient was admitted to the hospitalist service with consults to [facility] with acute on chronic respiratory failure and HAP. Hospital course to date: 07/26: Stopped Solu-Medrol, given For hyperkalemia, started on tube feedings. Remains on fentanyl and Mucomyst 07/27: Renal indices increased, patient did receive Lasix x1 yesterday. Nephrology was consulted. Urine lites and bilateral renal ultrasound pending. Infectious disease consulted. Bladder scan performed and Good catheter placed. COVID 19 PCR negative 07/28: No acute events reported overnight, worsening renal function-nephrology is on the case. Continue with cefepime per ID. Vent changes per [facility]. 07/29: Slight improvement to renal function tests, remains on assist control. No acute events reported overnight. 07/30: Patient has been on T-piece all night. Renal function continues slightly worse however patient is still creating urine. Possible transfer to floor or imcu. Per pt he is requesting transfer to another [facility] home if needed on discharge. Hospitalist Physical - Constitutional Vitals: Temp Pulse Resp BP Pulse Ox 98.5 F 76 16 133/74 100 07/30/21 08:00 07/30/21 11:51 07/30/21 11:51 07/30/21 11:51 07/30/21 11:51 General appearance: Present: no acute distress, obese - EENT Eyes: Present: PERRL, EOM intact ENT: hearing intact, clear oral mucosa, dentition normal - Neck Neck: Present: normal ROM - Respiratory Respiratory effort: normal Respiratory: bilateral: CTA, diminished - Cardiovascular Rhythm: regular Heart Sounds: Present: S1 & S2. Absent: systolic murmur, diastolic murmur - Extremities Extremities: no ischemia, pulses intact, pulses symmetrical, normal temperature, normal color Extremity abnormal: edema Peripheral Pulses: within normal limits - Abdominal General gastrointestinal: soft, non-tender, non-distended, normal bowel sounds - Integumentary Integumentary: Present: warm, dry - Psychiatric Psychiatric: cooperative - Neurologic Neurologic: CNII-XII intact, no focal deficits, moves all extremities - Allied Health Allied health notes reviewed: nursing, RT, social work HEART Score - HEART Score Troponin: Troponin T < 0.010 ng/mL (0.00-0.029) 07/25/21 Unknown Results - Labs CBC & Chem 7: 07/30/21 04:19 07/30/21 04:19 Labs: Laboratory Last Values WBC 7.4 K/mm3 (4.5-11.0) 07/30/21 04:19 RBC 3.93 M/mm3 (3.65-5.03) 07/30/21 04:19 Hgb 10.9 gm/dl (11.8-15.2) L 07/30/21 04:19 Hct 32.6 % (35.5-45.6) L 07/30/21 04:19 MCV 83 fl (84-94) L 07/30/21 04:19 MCH 28 pg (28-32) 07/30/21 04:19 MCHC 34 % (32-34) 07/30/21 04:19 RDW 16.2 % (13.2-15.2) H 07/30/21 04:19 Plt Count 324 K/mm3 (140-440) 07/30/21 04:19 Lymph # (Auto) Commercial [employer]ducer 07/25/21 Unknown Add Manual Diff Complete 07/26/21 03:50 Total Counted 100 07/26/21 03:50 Seg Neuts % (Manual) 96.0 % (40.0-70.0) H 07/26/21 03:50 Band Neutrophils % 0 % 07/26/21 03:50 Lymphocytes % (Manual) 3.0 % (13.4-35.0) L 07/26/21 03:50 Reactive Lymphs % (Man) 0 % 07/26/21 03:50 Monocytes % (Manual) 1.0 % (0.0-7.3) 07/26/21 03:50 Eosinophils % (Manual) 0 % (0.0-4.3) 07/26/21 03:50 Basophils % (Manual) 0 % (0.0-1.8) 07/26/21 03:50 Metamyelocytes % 0 % 07/26/21 03:50 Myelocytes % 0 % 07/26/21 03:50 Promyelocytes % 0 % 07/26/21 03:50 Blast Cells % 0 % 07/26/21 03:50 Nucleated RBC % Not Reportable 07/26/21 03:50 Seg Neutrophils # Man 14.9 K/mm3 (1.8-7.7) H 07/26/21 03:50 Band Neutrophils # 0.0 K/mm3 07/26/21 03:50 Lymphocytes # (Manual) 0.5 K/mm3 (1.2-5.4) L 07/26/21 03:50 Abs React Lymphs (Man) 0.0 K/mm3 07/26/21 03:50 Monocytes # (Manual) 0.2 K/mm3 (0.0-0.8) 07/26/21 03:50 Eosinophils # (Manual) 0.0 K/mm3 (0.0-0.4) 07/26/21 03:50 Basophils # (Manual) 0.0 K/mm3 (0.0-0.1) 07/26/21 03:50 Metamyelocytes # 0.0 K/mm3 07/26/21 03:50 Myelocytes # 0.0 K/mm3 07/26/21 03:50 Promyelocytes # 0.0 K/mm3 07/26/21 03:50 Blast Cells # 0.0 K/mm3 07/26/21 03:50 WBC Morphology Not Reportable 07/26/21 03:50 Hypersegmented Neuts Not Reportable 07/26/21 03:50 Hyposegmented Neuts Not Reportable 07/26/21 03:50 Hypogranular Neuts Not Reportable 07/26/21 03:50 Smudge Cells Not Reportable 07/26/21 03:50 Toxic Granulation Not Reportable 07/26/21 03:50 Toxic Vacuolation Not Reportable 07/26/21 03:50 Dohle Bodies Not Reportable 07/26/21 03:50 Pelger-Huet Anomaly Not Reportable 07/26/21 03:50 Mely Rods Not Reportable 07/26/21 03:50 Platelet Estimate Consistent w auto 07/26/21 03:50 Clumped Platelets Not Reportable 07/26/21 03:50 Plt Clumps, EDTA Not Reportable 07/26/21 03:50 Large Platelets Not Reportable 07/26/21 03:50 Giant Platelets Not Reportable 07/26/21 03:50 Platelet Satelliting Not Reportable 07/26/21 03:50 Plt Morphology Comment Not Reportable 07/26/21 03:50 RBC Morphology Not Reportable 07/26/21 03:50 Dimorphic RBCs Not Reportable 07/26/21 03:50 Polychromasia Not Reportable 07/26/21 03:50 Hypochromasia Not Reportable 07/26/21 03:50 Poikilocytosis Not Reportable 07/26/21 03:50 Anisocytosis 1+ 07/26/21 03:50 Microcytosis Not Reportable 07/26/21 03:50 Macrocytosis Not Reportable 07/26/21 03:50 Spherocytes Few 07/26/21 03:50 Pappenheimer Bodies Not Reportable 07/26/21 03:50 Sickle Cells Not Reportable 07/26/21 03:50 Target Cells Not Reportable 07/26/21 03:50 Tear Drop Cells Not Reportable 07/26/21 03:50 Ovalocytes Not Reportable 07/26/21 03:50 Helmet Cells Not Reportable 07/26/21 03:50 Longo-Ault Bodies Not Reportable 07/26/21 03:50 [place] Rings Not Reportable 07/26/21 03:50 [place] Cells Not Reportable 07/26/21 03:50 Bite Cells Not Reportable 07/26/21 03:50 Crenated Cell Not Reportable 07/26/21 03:50 Elliptocytes Not Reportable 07/26/21 03:50 Acanthocytes (Spur) Not Reportable 07/26/21 03:50 Rouleaux Not Reportable 07/26/21 03:50 Hemoglobin C Crystals Not Reportable 07/26/21 03:50 Schistocytes Not Reportable 07/26/21 03:50 Malaria parasites Not Reportable 07/26/21 03:50 [place] Bodies Not Reportable 07/26/21 03:50 Hem Pathologist Commnt No 07/26/21 03:50 ABG pH 7.449 pH Units (7.350-7.450) 07/29/21 20:45 ABG pCO2 51.3 mm Hg 07/29/21 20:45 ABG pO2 85.8 mm Hg (80.0-90.0) 07/29/21 20:45 ABG HCO3 34.7 mmol/L (20.0-26.0) H 07/29/21 20:45 ABG O2 Saturation 97.0 % (95.0-99.0) 07/29/21 20:45 ABG O2 Content 15.7 (0.0-44) 07/29/21 20:45 ABG Base Excess 9.3 mmol/L (-2.0-3.0) H 07/29/21 20:45 ABG Hemoglobin 11.7 gm/dl (14.0-18.0) L 07/29/21 20:45 ABG Carboxyhemoglobin 1.2 % (0.0-5.0) 07/29/21 20:45 ABG Methemoglobin 0.6 % (0.0-1.5) 07/29/21 20:45 Oxyhemoglobin 95.2 % (95.0-99.0) 07/29/21 20:45 FiO2 35 % 07/29/21 20:45 Sodium 141 mmol/L (137-145) 07/30/21 04:19 Potassium 4.5 mmol/L (3.6-5.0) 07/30/21 04:19 Chloride 100.5 mmol/L (98-107) 07/30/21 04:19 Carbon Dioxide 33 mmol/L (22-30) H 07/30/21 04:19 Anion Gap 12 mmol/L 07/30/21 04:19 BUN 32 mg/dL (9-20) H 07/30/21 04:19 Creatinine 2.2 mg/dL (0.8-1.3) H 07/30/21 04:19 Estimated GFR 30 ml/min 07/30/21 04:19 BUN/Creatinine Ratio 15 % 07/30/21 04:19 Glucose 108 mg/dL (75-100) H 07/30/21 04:19 POC Glucose 109 mg/dL (70-105) H 07/30/21 05:25 Hemoglobin A1c 5.9 % (4-6) 07/26/21 03:50 Lactic Acid 4.90 mmol/L (0.7-2.0) H* 07/25/21 Unknown Calcium 9.9 mg/dL (8.4-10.2) 07/30/21 04:19 Total Bilirubin 0.20 mg/dL (0.1-1.2) 07/26/21 03:50 AST 19 units/L (5-40) 07/26/21 03:50 ALT 11 units/L (7-56) 07/26/21 03:50 Alkaline Phosphatase 73 units/L (35-129) 07/26/21 03:50 Troponin T < 0.010 ng/mL (0.00-0.029) 07/25/21 Unknown C-Reactive Protein 2.40 mg/dL (0.00-1.30) H 07/27/21 15:57 Total Protein 8.2 g/dL (6.3-8.2) 07/26/21 03:50 Albumin 3.7 g/dL (3.9-5) L 07/26/21 03:50 Albumin/Globulin Ratio 0.8 % 07/26/21 03:50 Procalcitonin 0.77 ng/mL (<0.15) 07/27/21 15:57 Urine Color Yellow (Yellow) 07/25/21 11:19 Urine Turbidity Cloudy (Clear) 07/25/21 11:19 Urine pH 6.0 (5.0-7.0) 07/25/21 11:19 Ur Specific [place] 1.015 (1.003-1.030) 07/25/21 11:19 Urine Protein >500 mg/dL (Negative) 07/25/21 11:19 Urine Glucose (UA) 150 mg/dL (Negative) 07/25/21 11:19 Urine Ketones Neg mg/dL (Negative) 07/25/21 11:19 Urine Blood Neg (Negative) 07/25/21 11:19 Urine Nitrite Neg (Negative) 07/25/21 11:19 Urine Bilirubin Neg (Negative) 07/25/21 11:19 Urine Urobilinogen < 2.0 mg/dL (<2.0) 07/25/21 11:19 Ur Leukocyte Esterase Neg (Negative) 07/25/21 11:19 Urine WBC (Auto) 26.0 /HPF (0.0-6.0) H 07/25/21 11:19 Urine RBC (Auto) 53.0 /HPF (0.0-6.0) 07/25/21 11:19 U Epithel Cells (Auto) 7.0 /HPF (0-13.0) 07/25/21 11:19 Urine Bacteria (Auto) 4+ /HPF (Negative) 07/25/21 11:19 Hyaline Casts 21 /LPF 07/25/21 11:19 Urine Mucus Few /HPF 07/25/21 11:19 Urine Yeast (Budding) 2+ /HPF 07/25/21 11:19 Urine Sperm 3+ /HPF (HOME HEALTH CARE PROVIDER) 07/25/21 11:19 Urine Eosinophils None seen (None Seen) 07/27/21 17:45 Urine Creatinine 105.6 mg/dL (0.1-20.0) H 07/27/21 17:45 Urine Creatinine 106.0 mg/dL (0.1-20.0) H 07/27/21 17:45 Protein/Creatinin Ratio 0.28 07/27/21 17:45 Urine Sodium 46 mmol/L 07/27/21 17:45 Urine Total Protein 30 mg/dL (5-11.8) H 07/27/21 17:45 Nasal Screen MRSA (PCR) Positive (Negative) 07/26/21 16:30 Coronavirus (PCR) Negative (Negative) 07/27/21 09:00 Hepatitis A IgM Ab Non-reactive (NonReactive) 07/27/21 18:17 Hep Bs Antigen Non-reactive (Negative) 07/27/21 18:17 Hep B Core IgM Ab Non-reactive (NonReactive) 07/27/21 18:17 Hepatitis C Antibody Non-reactive (NonReactive) 07/27/21 18:17 Microbiology: Microbiology 07/25/21 11:44 Peripheral/Venous Blood Culture - Preliminary NO GROWTH AFTER 4 DAYS 07/25/21 11:23 Peripheral/Venous Blood Culture - Preliminary NO GROWTH AFTER 4 DAYS Good/IV: Voiding Method Indwelling Catheter Active Medications - Current Medications Current Medications: Generic Name Dose Route Start Last Admin Trade Name Freq PRN Reason Stop Dose Admin Acetaminophen 650 mg 07/25/21 16:00 Acetaminophen 325 Mg Tab PO Q4H PRN Pain MILD(1-3)/Fever >100.5/RAYO Albuterol/Ipratropium 1 ampul 07/26/21 16:00 07/30/21 07:59 Ipratropium/Albuterol Sulfate 3 Ml Ampul.Neb IH 1 ampul Q8HRT BLANCA Administration Amlodipine Besylate 10 mg 07/28/21 10:00 07/30/21 10:22 Amlodipine 5 Mg Tab FEEDTUBE 10 mg QDAY BLANCA Administration Lipase/Protease/Amylase 1 each 07/26/21 14:56 Lipase 10,500/Protease 25,000/Amylase 43,750 (Units) Dr Zambrano FEEDTUBE PRN PRN For Clogged Feeding Tube Dextrose 50 ml 07/26/21 12:22 Dextrose 50% In Water (25gm) 50 Ml Syringe IV Q30MIN PRN Hypoglycemia Protocol Famotidine 10 mg 07/27/21 10:00 07/30/21 10:21 Famotidine 10 Mg Tab FEEDTUBE 10 mg BID BLANCA Administration Heparin Sodium (Porcine) 5,000 unit 07/25/21 16:00 07/30/21 10:22 Heparin 5,000 Unit/1 Ml Vial SUB-Q 5,000 unit Q12HR BLANCA Administration Hydralazine HCl 25 mg 07/30/21 14:00 Hydralazine 25 Mg Tab PO Q8HR BLANCA Hydralazine HCl 15 mg 07/30/21 07:44 Hydralazine 20 Mg/1 Ml Inj IV Q6H PRN Blood Pressure Cefepime HCl 2 gm in 100 mls @ 200 mls/hr 07/27/21 18:00 07/30/21 05:54 Cefepime/Ns 2 Gm/100 Ml IV 200 mls/hr Q12H BLANCA Administration Protocol Insulin Human Regular 0 units 07/26/21 12:00 07/30/21 05:54 Insulin Regular, Human 100 Units/1 Ml SUB-Q Not Given Q6HR [facility] Protocol Labetalol HCl 100 mg 07/28/21 10:00 07/30/21 10:22 Labetalol 100 Mg Tab FEEDTUBE 100 mg BID BLANCA Administration Ondansetron HCl 4 mg 07/25/21 16:00 Ondansetron 4 Mg/2 Ml Inj IV Q8H PRN Nausea And Vomiting Oxycodone/Acetaminophen 1 tab 07/27/21 12:27 Oxycodone /Acetaminophen 5-325mg Tab PO Q6H PRN Pain, Moderate (4-6) Polyethylene Glycol 17 gm 07/26/21 17:04 Polyethylene Glycol 3350 17 Gm Powder PO QDAY PRN Constipation Senna/Docusate Sodium 1 tab 07/26/21 22:00 07/29/21 22:24 Sennosides/Docusate Sodium 8.6/50 Mg Tab PO 1 tab QHS BLANCA Administration Simple Syrup 15 ml 07/26/21 14:56 Simple Syrup 15 Ml FEEDTUBE PRN PRN Hypoglycemia Simple Syrup 30 ml 07/26/21 14:56 Simple Syrup 15 Ml FEEDTUBE PRN PRN Hypoglycemia Sodium Bicarbonate 325 mg 07/26/21 14:56 Sodium Bicarbonate 325 Mg Tab FEEDTUBE PRN PRN For Clogged Feeding Tube Sodium Chloride 10 ml 07/25/21 22:00 07/30/21 10:21 Sodium Chloride 0.9% 10 Ml Flush Syringe IV 10 ml BID BLANCA Administration Sodium Chloride 10 ml 07/25/21 16:00 07/26/21 00:08 Sodium Chloride 0.9% 10 Ml Flush Syringe IV 10 ml PRN PRN Administration LINE FLUSH Nutrition/Malnutrition Assess - Dietary Evaluation Nutrition/Malnutrition Findings: Nutrition Notes Start: 07/26/21 14:26 Freq: Status: Active Protocol: Document 07/28/21 15:11 [facility] (Rec: 07/28/21 15:21 [facility] [id number]) Nutrition Notes Initial or Follow up Reassessment Current Diagnosis Acute Kidney Injury,Diabetes, Hypertension,Respiratory Failure Other Pertinent Diagnosis Pneu Current Diet TF - Glucerna 1.2 at 65ml/hr Labs/Tests Na 135 BUN 40 Cr 2.3 A1C 5.9 Pertinent Medications Reviewed Height 6 ft Weight 113.398 kg [place] Body Weight (kg) 80.90 BMI 33.9 Weight Status Obese Subjective/Other Information Per RN, pt tolerating TF at goal rate. Pt remains on vent support. Percent of energy/protein needs met: 79% energy 100% pro Burn Absent Trauma Absent #1 Nutrition Diagnosis Swallowing difficulty Diagnosis Progress(for reassessment Continues documentation) Is patient on ventilator? Yes Is Patient Ambulatory and/or Out of Bed No REE-([facility]-confined to bed) 2365.068 Kcal/Kg value to use for calculation 14 Approximate Energy Requirements Using 1588 kcal/Kg Calculation Used for Recommendations 65-70% REE Additional Notes Energy needs: 9244-3023 kcal/ day Pro needs 0.8-1.2g/kg adjBW: 78-117g/day Fluid needs 1ml/kcal Nutrition Intervention Nutrition Support: Decrease TF rate to 55ml/hr with 85ml water flush q4h. Kcal 1,584 Protein (gm) 79 Carbohydrates (gm) 151 Fat (gm) 79 Fluid (mL) 1,063 Fiber (gm) 21 Goal #1 TF tolerance Goal #2 TF to meet 65-70% energy and at least 75% pro needs Anticipated Discharge Needs: Continue TF Follow-Up By: 07/31/21 Additional Comments F/U: TF rate decrease/ tolerance, vent status, renal function
--- NOTE | 2021-07-30 12:37 | Progress Note ---
Assessment and Plan Impression * Acute kidney injury * Respiratory failure * Hypertension * Diabetes * Proteinuria * Cardiomyopathy * Urinary retention Recommendations * Patient had a serum creatinine of 0.8 on admission. Etiology of acute kidney injury unclear at this time. * Continue diuretics as needed * His urine shows 4+ dipstick protein with associated microhematuria as well as pyuria . patient does have pulmonary infiltrates. Need to rule out pulmonary renal syndrome. Follow-up results of vasculitis work-up. Hepatitis B and C both are negative * Patient does have some urinary retention. Continue Good catheter for now. * Fractional excretion of sodium is 0.7% and urine protein creatinine ratio is approximately 300 mg/g . Urine is negative for eosinophils * He may have some degree of underlying diabetic nephropathy * Avoid nephrotoxins * Broad-spectrum antibiotic as per ICU team * Monitor fluid status and electrolytes closely * Patient is currently nonoliguric. No urgent indication for dialysis today Subjective Date of service: 07/30/21 Principal diagnosis: Ac and ch hypoxemic and hypercapnic Resp Failure; HCAP; AE- CHF; s/p Trach Interval history: Patient is currently on T-piece with 35% FiO2. Oxygen saturation is 100%. Patient is comfortable. Denies any shortness of breath. Objective - Vital Signs Vital signs: Vital Signs - 12hr 07/30/21 07/30/21 07/30/21 00:37 00:41 00:51 Temperature Pulse Rate 75 82 Pulse Rate [ Anterior Left Throughout] Pulse Rate [ Anterior Right Throughout] Pulse Rate [ Bilateral Throughout] Pulse Rate [ From Monitor] Respiratory 27 H 25 H Rate Respiratory Rate [Anterior Left Throughout ] Respiratory Rate [Anterior Right Throughout] Respiratory Rate [Bilateral Throughout] Respiratory Rate [Bilateral ] Blood Pressure 165/89 165/89 O2 Sat by Pulse 98 99 100 Oximetry 07/30/21 07/30/21 07/30/21 01:00 01:11 01:21 Temperature Pulse Rate 76 76 78 Pulse Rate [ Anterior Left Throughout] Pulse Rate [ Anterior Right Throughout] Pulse Rate [ Bilateral Throughout] Pulse Rate [ From Monitor] Respiratory 21 17 24 Rate Respiratory Rate [Anterior Left Throughout ] Respiratory Rate [Anterior Right Throughout] Respiratory Rate [Bilateral Throughout] Respiratory Rate [Bilateral ] Blood Pressure 158/79 162/82 162/82 O2 Sat by Pulse 94 100 98 Oximetry 07/30/21 07/30/21 07/30/21 01:30 01:41 01:51 Temperature Pulse Rate 74 79 78 Pulse Rate [ Anterior Left Throughout] Pulse Rate [ Anterior Right Throughout] Pulse Rate [ Bilateral Throughout] Pulse Rate [ From Monitor] Respiratory 26 H 17 24 Rate Respiratory Rate [Anterior Left Throughout ] Respiratory Rate [Anterior Right Throughout] Respiratory Rate [Bilateral Throughout] Respiratory Rate [Bilateral ] Blood Pressure 164/78 164/78 164/78 O2 Sat by Pulse 95 98 98 Oximetry 07/30/21 07/30/21 07/30/21 02:00 02:11 02:21 Temperature Pulse Rate 77 78 81 Pulse Rate [ Anterior Left Throughout] Pulse Rate [ Anterior Right Throughout] Pulse Rate [ Bilateral Throughout] Pulse Rate [ From Monitor] Respiratory 19 22 21 Rate Respiratory Rate [Anterior Left Throughout ] Respiratory Rate [Anterior Right Throughout] Respiratory Rate [Bilateral Throughout] Respiratory Rate [Bilateral ] Blood Pressure 158/81 164/78 164/78 O2 Sat by Pulse 95 98 97 Oximetry 07/30/21 07/30/21 07/30/21 02:30 02:41 02:51 Temperature Pulse Rate 97 H 82 80 Pulse Rate [ Anterior Left Throughout] Pulse Rate [ Anterior Right Throughout] Pulse Rate [ Bilateral Throughout] Pulse Rate [ From Monitor] Respiratory 15 20 19 Rate Respiratory Rate [Anterior Left Throughout ] Respiratory Rate [Anterior Right Throughout] Respiratory Rate [Bilateral Throughout] Respiratory Rate [Bilateral ] Blood Pressure 161/88 161/88 161/88 O2 Sat by Pulse 94 97 97 Oximetry 07/30/21 07/30/21 07/30/21 03:00 03:11 03:21 Temperature Pulse Rate 80 81 81 Pulse Rate [ Anterior Left Throughout] Pulse Rate [ Anterior Right Throughout] Pulse Rate [ Bilateral Throughout] Pulse Rate [ From Monitor] Respiratory 18 17 15 Rate Respiratory Rate [Anterior Left Throughout ] Respiratory Rate [Anterior Right Throughout] Respiratory Rate [Bilateral Throughout] Respiratory Rate [Bilateral ] Blood Pressure 154/74 154/74 154/74 O2 Sat by Pulse 92 97 97 Oximetry 07/30/21 07/30/21 07/30/21 03:27 03:30 03:41 Temperature Pulse Rate 95 H 80 Pulse Rate [ Anterior Left Throughout] Pulse Rate [ Anterior Right Throughout] Pulse Rate [ Bilateral Throughout] Pulse Rate [ From Monitor] Respiratory 18 15 Rate Respiratory Rate [Anterior Left Throughout ] Respiratory Rate [Anterior Right Throughout] Respiratory Rate [Bilateral Throughout] Respiratory Rate [Bilateral ] Blood Pressure 167/95 154/74 O2 Sat by Pulse 95 95 98 Oximetry 07/30/21 07/30/21 07/30/21 03:51 03:52 04:00 Temperature 98.8 F Pulse Rate 78 79 Pulse Rate [ Anterior Left Throughout] Pulse Rate [ Anterior Right Throughout] Pulse Rate [ Bilateral Throughout] Pulse Rate [ 95 H From Monitor] Respiratory 16 16 Rate Respiratory Rate [Anterior Left Throughout ] Respiratory Rate [Anterior Right Throughout] Respiratory Rate [Bilateral Throughout] Respiratory Rate [Bilateral ] Blood Pressure 154/74 133/76 O2 Sat by Pulse 98 93 Oximetry 07/30/21 07/30/21 07/30/21 04:11 04:21 04:30 Temperature Pulse Rate 80 78 81 Pulse Rate [ Anterior Left Throughout] Pulse Rate [ Anterior Right Throughout] Pulse Rate [ Bilateral Throughout] Pulse Rate [ From Monitor] Respiratory 17 17 20 Rate Respiratory Rate [Anterior Left Throughout ] Respiratory Rate [Anterior Right Throughout] Respiratory Rate [Bilateral Throughout] Respiratory Rate [Bilateral ] Blood Pressure 133/76 133/76 152/78 O2 Sat by Pulse 97 98 94 Oximetry 07/30/21 07/30/21 07/30/21 04:41 04:51 05:00 Temperature Pulse Rate 79 79 76 Pulse Rate [ Anterior Left Throughout] Pulse Rate [ Anterior Right Throughout] Pulse Rate [ Bilateral Throughout] Pulse Rate [ From Monitor] Respiratory 14 18 17 Rate Respiratory Rate [Anterior Left Throughout ] Respiratory Rate [Anterior Right Throughout] Respiratory Rate [Bilateral Throughout] Respiratory Rate [Bilateral ] Blood Pressure 152/78 152/78 147/79 O2 Sat by Pulse 98 98 94 Oximetry 07/30/21 07/30/21 07/30/21 05:11 05:21 05:30 Temperature Pulse Rate 75 77 77 Pulse Rate [ Anterior Left Throughout] Pulse Rate [ Anterior Right Throughout] Pulse Rate [ Bilateral Throughout] Pulse Rate [ From Monitor] Respiratory 18 16 18 Rate Respiratory Rate [Anterior Left Throughout ] Respiratory Rate [Anterior Right Throughout] Respiratory Rate [Bilateral Throughout] Respiratory Rate [Bilateral ] Blood Pressure 147/79 147/79 160/84 O2 Sat by Pulse 98 98 94 Oximetry 07/30/21 07/30/21 07/30/21 05:41 05:51 05:53 Temperature Pulse Rate 78 77 76 Pulse Rate [ Anterior Left Throughout] Pulse Rate [ Anterior Right Throughout] Pulse Rate [ Bilateral Throughout] Pulse Rate [ From Monitor] Respiratory 16 16 Rate Respiratory Rate [Anterior Left Throughout ] Respiratory Rate [Anterior Right Throughout] Respiratory Rate [Bilateral Throughout] Respiratory Rate [Bilateral ] Blood Pressure 160/84 160/84 160/84 O2 Sat by Pulse 99 98 Oximetry 07/30/21 07/30/21 07/30/21 06:00 06:11 06:21 Temperature Pulse Rate 77 88 79 Pulse Rate [ Anterior Left Throughout] Pulse Rate [ Anterior Right Throughout] Pulse Rate [ Bilateral Throughout] Pulse Rate [ From Monitor] Respiratory 15 17 13 Rate Respiratory Rate [Anterior Left Throughout ] Respiratory Rate [Anterior Right Throughout] Respiratory Rate [Bilateral Throughout] Respiratory Rate [Bilateral ] Blood Pressure 163/79 163/79 163/79 O2 Sat by Pulse 94 98 99 Oximetry 07/30/21 07/30/21 07/30/21 06:30 06:41 06:51 Temperature Pulse Rate 79 78 78 Pulse Rate [ Anterior Left Throughout] Pulse Rate [ Anterior Right Throughout] Pulse Rate [ Bilateral Throughout] Pulse Rate [ From Monitor] Respiratory 10 L 17 16 Rate Respiratory Rate [Anterior Left Throughout ] Respiratory Rate [Anterior Right Throughout] Respiratory Rate [Bilateral Throughout] Respiratory Rate [Bilateral ] Blood Pressure 155/81 155/81 155/81 O2 Sat by Pulse 96 98 99 Oximetry 07/30/21 07/30/21 07/30/21 07:00 07:11 07:21 Temperature Pulse Rate 76 76 74 Pulse Rate [ Anterior Left Throughout] Pulse Rate [ Anterior Right Throughout] Pulse Rate [ Bilateral Throughout] Pulse Rate [ From Monitor] Respiratory 10 L 11 L 18 Rate Respiratory Rate [Anterior Left Throughout ] Respiratory Rate [Anterior Right Throughout] Respiratory Rate [Bilateral Throughout] Respiratory Rate [Bilateral ] Blood Pressure 153/79 153/79 153/79 O2 Sat by Pulse 95 99 100 Oximetry 07/30/21 07/30/21 07/30/21 07:30 07:41 07:51 Temperature Pulse Rate 74 75 Pulse Rate [ Anterior Left Throughout] Pulse Rate [ Anterior Right Throughout] Pulse Rate [ Bilateral Throughout] Pulse Rate [ From Monitor] Respiratory 19 19 17 Rate Respiratory Rate [Anterior Left Throughout ] Respiratory Rate [Anterior Right Throughout] Respiratory Rate [Bilateral Throughout] Respiratory Rate [Bilateral ] Blood Pressure 153/86 153/86 153/86 O2 Sat by Pulse 96 99 99 Oximetry 07/30/21 07/30/21 07/30/21 07:59 08:00 08:01 Temperature 98.5 F Pulse Rate 78 79 Pulse Rate [ 86 Anterior Left Throughout] Pulse Rate [ 78 Anterior Right Throughout] Pulse Rate [ 85 Bilateral Throughout] Pulse Rate [ 95 H From Monitor] Respiratory 14 14 Rate Respiratory 20 Rate [Anterior Left Throughout ] Respiratory 20 Rate [Anterior Right Throughout] Respiratory 22 Rate [Bilateral Throughout] Respiratory 22 Rate [Bilateral ] Blood Pressure 168/80 O2 Sat by Pulse 97 97 Oximetry 07/30/21 07/30/21 07/30/21 08:11 08:21 08:30 Temperature Pulse Rate 80 78 76 Pulse Rate [ Anterior Left Throughout] Pulse Rate [ Anterior Right Throughout] Pulse Rate [ Bilateral Throughout] Pulse Rate [ From Monitor] Respiratory 16 25 H 31 H Rate Respiratory Rate [Anterior Left Throughout ] Respiratory Rate [Anterior Right Throughout] Respiratory Rate [Bilateral Throughout] Respiratory Rate [Bilateral ] Blood Pressure 168/80 168/80 150/84 O2 Sat by Pulse 99 99 97 Oximetry 07/30/21 07/30/21 07/30/21 08:41 08:51 09:00 Temperature Pulse Rate 73 81 74 Pulse Rate [ Anterior Left Throughout] Pulse Rate [ Anterior Right Throughout] Pulse Rate [ Bilateral Throughout] Pulse Rate [ From Monitor] Respiratory 20 14 19 Rate Respiratory Rate [Anterior Left Throughout ] Respiratory Rate [Anterior Right Throughout] Respiratory Rate [Bilateral Throughout] Respiratory Rate [Bilateral ] Blood Pressure 150/84 150/84 163/84 O2 Sat by Pulse 98 99 95 Oximetry 07/30/21 07/30/21 07/30/21 09:11 09:21 09:30 Temperature Pulse Rate 77 78 Pulse Rate [ Anterior Left Throughout] Pulse Rate [ Anterior Right Throughout] Pulse Rate [ Bilateral Throughout] Pulse Rate [ From Monitor] Respiratory 15 19 17 Rate Respiratory Rate [Anterior Left Throughout ] Respiratory Rate [Anterior Right Throughout] Respiratory Rate [Bilateral Throughout] Respiratory Rate [Bilateral ] Blood Pressure 163/84 163/84 165/86 O2 Sat by Pulse 98 99 98 Oximetry 07/30/21 07/30/21 07/30/21 09:41 09:51 10:00 Temperature Pulse Rate 81 79 79 Pulse Rate [ Anterior Left Throughout] Pulse Rate [ Anterior Right Throughout] Pulse Rate [ Bilateral Throughout] Pulse Rate [ From Monitor] Respiratory 21 14 18 Rate Respiratory Rate [Anterior Left Throughout ] Respiratory Rate [Anterior Right Throughout] Respiratory Rate [Bilateral Throughout] Respiratory Rate [Bilateral ] Blood Pressure 165/86 165/86 169/82 O2 Sat by Pulse 98 99 95 Oximetry 07/30/21 07/30/2107/30/22 10:11 10:21 10:22 Temperature Pulse Rate 78 79 77 Pulse Rate [ Anterior Left Throughout] Pulse Rate [ Anterior Right Throughout] Pulse Rate [ Bilateral Throughout] Pulse Rate [ From Monitor] Respiratory 16 17 Rate Respiratory Rate [Anterior Left Throughout ] Respiratory Rate [Anterior Right Throughout] Respiratory Rate [Bilateral Throughout] Respiratory Rate [Bilateral ] Blood Pressure 169/82 169/82 169/82 O2 Sat by Pulse 98 98 Oximetry 07/30/21 07/30/21 07/30/21 10:30 10:41 10:51 Temperature Pulse Rate 78 79 81 Pulse Rate [ Anterior Left Throughout] Pulse Rate [ Anterior Right Throughout] Pulse Rate [ Bilateral Throughout] Pulse Rate [ From Monitor] Respiratory 16 18 14 Rate Respiratory Rate [Anterior Left Throughout ] Respiratory Rate [Anterior Right Throughout] Respiratory Rate [Bilateral Throughout] Respiratory Rate [Bilateral ] Blood Pressure 151/82 151/82 151/82 O2 Sat by Pulse 96 97 98 Oximetry 07/30/21 07/30/21 07/30/21 11:00 11:11 11:21 Temperature Pulse Rate 77 83 77 Pulse Rate [ Anterior Left Throughout] Pulse Rate [ Anterior Right Throughout] Pulse Rate [ Bilateral Throughout] Pulse Rate [ From Monitor] Respiratory 15 15 18 Rate Respiratory Rate [Anterior Left Throughout ] Respiratory Rate [Anterior Right Throughout] Respiratory Rate [Bilateral Throughout] Respiratory Rate [Bilateral ] Blood Pressure 152/77 152/77 152/77 O2 Sat by Pulse 94 98 98 Oximetry 07/30/21 07/30/21 07/30/21 11:30 11:41 11:51 Temperature Pulse Rate 76 79 76 Pulse Rate [ Anterior Left Throughout] Pulse Rate [ Anterior Right Throughout] Pulse Rate [ Bilateral Throughout] Pulse Rate [ From Monitor] Respiratory 18 15 16 Rate Respiratory Rate [Anterior Left Throughout ] Respiratory Rate [Anterior Right Throughout] Respiratory Rate [Bilateral Throughout] Respiratory Rate [Bilateral ] Blood Pressure 133/74 133/74 133/74 O2 Sat by Pulse 94 99 100 Oximetry 07/30/21 12:00 Temperature Pulse Rate 73 Pulse Rate [ Anterior Left Throughout] Pulse Rate [ Anterior Right Throughout] Pulse Rate [ Bilateral Throughout] Pulse Rate [ From Monitor] Respiratory Rate Respiratory Rate [Anterior Left Throughout ] Respiratory Rate [Anterior Right Throughout] Respiratory Rate [Bilateral Throughout] Respiratory Rate [Bilateral ] Blood Pressure 150/81 O2 Sat by Pulse 99 Oximetry - General Appearance General appearance: well-developed, well-nourished, appears stated age EENT: PERRL, mucous membranes moist Neck: other (Tracheostomy tube in place. Connected to T-piece) Respiratory: Present: Ronchi (Few scattered rhonchi) Cardiology: regular, normal heart rate, S1S2, no murmurs Gastrointestinal: normal, normoactive bowel sounds Integumentary: other (Trace edema) - Lab 07/30/21 04:19 07/30/21 04:19 Most recent lab results ABG pH 7.449 pH Units (7.350-7.450) 07/29/21 20:45 ABG pCO2 51.3 mm Hg 07/29/21 20:45 ABG pO2 85.8 mm Hg (80.0-90.0) 07/29/21 20:45 ABG HCO3 34.7 mmol/L (20.0-26.0) H 07/29/21 20:45 ABG O2 Saturation 97.0 % (95.0-99.0) 07/29/21 20:45 Calcium 9.9 mg/dL (8.4-10.2) 07/30/21 04:19 Urine Creatinine 105.6 mg/dL (0.1-20.0) H 07/27/21 17:45 Urine Creatinine 106.0 mg/dL (0.1-20.0) H 07/27/21 17:45 Urine Sodium 46 mmol/L 07/27/21 17:45 Urine Total Protein 30 mg/dL (5-11.8) H 07/27/21 17:45 Medications & Allergies - Medications Allergies/Adverse Reactions: Allergies No Known Allergies Allergy (Verified 07/25/21 11:02) Home Medications: Home Medications Medication Instructions Recorded Confirmed Last Taken Type No Known Home Medications [No 03/11/21 03/11/21 Unknown History Reported Home Medications] Apixaban [Eliquis] 5 mg FEEDTUBE Q12HR 30 Days #60 05/02/21 Unknown Rx tablet Doxazosin [Cardura] 1 mg FEEDTUBE BID 30 Days #60 05/02/21 Unknown Rx tablet Famotidine [Pepcid] 20 mg FEEDTUBE BID 30 Days #60 05/02/21 Unknown Rx tablet Glycopyrrolate 2 mg PO TID 30 Days #90 tablet 05/02/21 Unknown Rx Insulin Glargine [Lantus VIAL] 18 units SUB-Q QHS 30 Days #2 vial 05/02/21 Unknown Rx Metoprolol [Lopressor TAB] 12.5 mg FEEDTUBE BID 30 Days #60 05/02/21 Unknown Rx tablet amLODIPine 10 mg FEEDTUBE DAILY 30 Days #30 05/02/21 Unknown Rx tablet cephALEXin [Keflex] 500 mg PO Q8HR 2 Days #6 cap 05/02/21 Unknown Rx hydrALAZINE [Apresoline TAB] 50 mg FEEDTUBE Q8HR 30 Days #90 05/02/21 Unknown Rx tablet Active Medications: Generic Name Dose Route Start Last Admin Trade Name Freq PRN Reason Stop Dose Admin Acetaminophen 650 mg 07/25/21 16:00 Acetaminophen 325 Mg Tab PO Q4H PRN Pain MILD(1-3)/Fever >100.5/RAYO Albuterol/Ipratropium 1 ampul 07/26/21 16:00 07/30/21 07:59 Ipratropium/Albuterol Sulfate 3 Ml Ampul.Neb IH 1 ampul Q8HRT BLANCA Administration Amlodipine Besylate 10 mg 07/28/21 10:00 07/30/21 10:22 Amlodipine 5 Mg Tab FEEDTUBE 10 mg QDAY BLANCA Administration Lipase/Protease/Amylase 1 each 07/26/21 14:56 Lipase 10,500/Protease 25,000/Amylase 43,750 (Units) Dr Zambrano FEEDTUBE PRN PRN For Clogged Feeding Tube Dextrose 50 ml 07/26/21 12:22 Dextrose 50% In Water (25gm) 50 Ml Syringe IV Q30MIN PRN Hypoglycemia Protocol Famotidine 10 mg 07/27/21 10:00 07/30/21 10:21 Famotidine 10 Mg Tab FEEDTUBE 10 mg BID BLANCA Administration Heparin Sodium (Porcine) 5,000 unit 07/25/21 16:00 07/30/21 10:22 Heparin 5,000 Unit/1 Ml Vial SUB-Q 5,000 unit Q12HR BLANCA Administration Hydralazine HCl 25 mg 07/30/21 14:00 Hydralazine 25 Mg Tab PO Q8HR BLANCA Hydralazine HCl 15 mg 07/30/21 07:44 Hydralazine 20 Mg/1 Ml Inj IV Q6H PRN Blood Pressure Cefepime HCl 2 gm in 100 mls @ 200 mls/hr 07/27/21 18:00 07/30/21 05:54 Cefepime/Ns 2 Gm/100 Ml IV 200 mls/hr Q12H BLANCA Administration Protocol Insulin Human Regular 0 units 07/26/21 12:00 07/30/21 05:54 Insulin Regular, Human 100 Units/1 Ml SUB-Q Not Given Q6HR [facility] Protocol Labetalol HCl 100 mg 07/28/21 10:00 07/30/21 10:22 Labetalol 100 Mg Tab FEEDTUBE 100 mg BID BLANCA Administration Ondansetron HCl 4 mg 07/25/21 16:00 Ondansetron 4 Mg/2 Ml Inj IV Q8H PRN Nausea And Vomiting Oxycodone/Acetaminophen 1 tab 07/27/21 12:27 Oxycodone /Acetaminophen 5-325mg Tab PO Q6H PRN Pain, Moderate (4-6) Polyethylene Glycol 17 gm 07/26/21 17:04 Polyethylene Glycol 3350 17 Gm Powder PO QDAY PRN Constipation Senna/Docusate Sodium 1 tab 07/26/21 22:00 07/29/21 22:24 Sennosides/Docusate Sodium 8.6/50 Mg Tab PO 1 tab QHS BLANCA Administration Simple Syrup 15 ml 07/26/21 14:56 Simple Syrup 15 Ml FEEDTUBE PRN PRN Hypoglycemia Simple Syrup 30 ml 07/26/21 14:56 Simple Syrup 15 Ml FEEDTUBE PRN PRN Hypoglycemia Sodium Bicarbonate 325 mg 07/26/21 14:56 Sodium Bicarbonate 325 Mg Tab FEEDTUBE PRN PRN For Clogged Feeding Tube Sodium Chloride 10 ml 07/25/21 22:00 07/30/21 10:21 Sodium Chloride 0.9% 10 Ml Flush Syringe IV 10 ml BID BLANCA Administration Sodium Chloride 10 ml 07/25/21 16:00 07/26/21 00:08 Sodium Chloride 0.9% 10 Ml Flush Syringe IV 10 ml PRN PRN Administration LINE FLUSH
--- NOTE | 2021-07-30 14:19 | Progress Note ---
Assessment and Plan Acute and chronic hypoxemic and hypercapnic Respiratory Failure 2/2 HCAP on MVS HCAP AE-CHF exacerbation s/p Tracheostomy Oropharyngeal dysphagia s/p PEG h/o Ischemic cardiomyopathy - transfer to [facility] ok - continue ATP RTC as tolerated - continue care as below otherwise; - complete AB's per ID rec's (Cefepime) - continue contact isolation re: MRSA - continue to wean supplemental oxygen for target O2 sat's > 90% acutely - aspiration precautions - continue lung protective strategies - continue bronchodilators with pulmonary hygiene per RT - wean per pulmonary driven protocols otherwise - continue accuchecks with glycemic control per SSI for target blood glucose of < 180 mg/dL; avoid hypoglycemia - sedation prn for target RASS 0 to -1 - avoid nephrotoxins, renally dose all medications - continue to avoid benzodiazepine's, reduce the possibility of delirium - prn analgesia per pain score - Maintenance of sleep-wake cycle, avoid delirium - continue enteral nutritional support at goal rate as tolerated - G.I. & VTE prophylaxis - PT/OT/ROM exercises - continue mobility protocols for pressure ulcer prophylaxis - Monitor hemodynamics closely - continue other care per attending / other consultants - discharge planning ongoing concurrently COVID SPECIFIC INTERVENTIONS - COVID-19 PCR negative .... Re-evaluate in am & prn Subjective Date of service: 07/30/21 Principal diagnosis: Ac and ch hypoxemic and hypercapnic Resp Failure; HCAP; AE- CHF; s/p Trach Interval history: Patient is seen today for: Acute and chronic hypoxemic and hypercapnic Respiratory Failure; HCAP; AE-CHF; s/p Tracheostomy; H/O Ischemic cardiomyopathy Seen and examined at bedside; 24hour events reviewed; nursing and respiratory care staff consulted; no adverse overnight events reported to me; resting peacefully in bed; has been off MVS for > 24 hours now and tolerating well; ABG reveals appropriate ventilatory effort and is compensated; No N/V/F/C Objective Vital Signs - 12hr 07/30/21 07/30/21 07/30/21 02:21 02:30 02:41 Temperature Pulse Rate 81 97 H 82 Pulse Rate [ Anterior Left Throughout] Pulse Rate [ Anterior Right Throughout] Pulse Rate [ Bilateral Throughout] Pulse Rate [ From Monitor] Respiratory 21 15 20 Rate Respiratory Rate [Anterior Left Throughout ] Respiratory Rate [Anterior Right Throughout] Respiratory Rate [Bilateral Throughout] Respiratory Rate [Bilateral ] Blood Pressure 164/78 161/88 161/88 O2 Sat by Pulse 97 94 97 Oximetry O2 Sat by Pulse Oximetry [ Assessment] 07/30/21 07/30/21 07/30/21 02:51 03:00 03:11 Temperature Pulse Rate 80 80 81 Pulse Rate [ Anterior Left Throughout] Pulse Rate [ Anterior Right Throughout] Pulse Rate [ Bilateral Throughout] Pulse Rate [ From Monitor] Respiratory 19 18 17 Rate Respiratory Rate [Anterior Left Throughout ] Respiratory Rate [Anterior Right Throughout] Respiratory Rate [Bilateral Throughout] Respiratory Rate [Bilateral ] Blood Pressure 161/88 154/74 154/74 O2 Sat by Pulse 97 92 97 Oximetry O2 Sat by Pulse Oximetry [ Assessment] 07/30/21 07/30/21 07/30/21 03:21 03:27 03:30 Temperature Pulse Rate 81 95 H Pulse Rate [ Anterior Left Throughout] Pulse Rate [ Anterior Right Throughout] Pulse Rate [ Bilateral Throughout] Pulse Rate [ From Monitor] Respiratory 15 18 Rate Respiratory Rate [Anterior Left Throughout ] Respiratory Rate [Anterior Right Throughout] Respiratory Rate [Bilateral Throughout] Respiratory Rate [Bilateral ] Blood Pressure 154/74 167/95 O2 Sat by Pulse 97 95 95 Oximetry O2 Sat by Pulse Oximetry [ Assessment] 07/30/21 07/30/21 07/30/21 03:41 03:51 03:52 Temperature 98.8 F Pulse Rate 80 78 Pulse Rate [ Anterior Left Throughout] Pulse Rate [ Anterior Right Throughout] Pulse Rate [ Bilateral Throughout] Pulse Rate [ From Monitor] Respiratory 15 16 Rate Respiratory Rate [Anterior Left Throughout ] Respiratory Rate [Anterior Right Throughout] Respiratory Rate [Bilateral Throughout] Respiratory Rate [Bilateral ] Blood Pressure 154/74 154/74 O2 Sat by Pulse 98 98 Oximetry O2 Sat by Pulse Oximetry [ Assessment] 07/30/21 07/30/21 07/30/21 04:00 04:11 04:21 Temperature Pulse Rate 79 80 78 Pulse Rate [ Anterior Left Throughout] Pulse Rate [ Anterior Right Throughout] Pulse Rate [ Bilateral Throughout] Pulse Rate [ 95 H From Monitor] Respiratory 16 17 17 Rate Respiratory Rate [Anterior Left Throughout ] Respiratory Rate [Anterior Right Throughout] Respiratory Rate [Bilateral Throughout] Respiratory Rate [Bilateral ] Blood Pressure 133/76 133/76 133/76 O2 Sat by Pulse 93 97 98 Oximetry O2 Sat by Pulse Oximetry [ Assessment] 07/30/21 07/30/21 07/30/21 04:30 04:41 04:51 Temperature Pulse Rate 81 79 79 Pulse Rate [ Anterior Left Throughout] Pulse Rate [ Anterior Right Throughout] Pulse Rate [ Bilateral Throughout] Pulse Rate [ From Monitor] Respiratory 20 14 18 Rate Respiratory Rate [Anterior Left Throughout ] Respiratory Rate [Anterior Right Throughout] Respiratory Rate [Bilateral Throughout] Respiratory Rate [Bilateral ] Blood Pressure 152/78 152/78 152/78 O2 Sat by Pulse 94 98 98 Oximetry O2 Sat by Pulse Oximetry [ Assessment] 07/30/21 07/30/21 07/30/21 05:00 05:11 05:21 Temperature Pulse Rate 76 75 77 Pulse Rate [ Anterior Left Throughout] Pulse Rate [ Anterior Right Throughout] Pulse Rate [ Bilateral Throughout] Pulse Rate [ From Monitor] Respiratory 17 18 16 Rate Respiratory Rate [Anterior Left Throughout ] Respiratory Rate [Anterior Right Throughout] Respiratory Rate [Bilateral Throughout] Respiratory Rate [Bilateral ] Blood Pressure 147/79 147/79 147/79 O2 Sat by Pulse 94 98 98 Oximetry O2 Sat by Pulse Oximetry [ Assessment] 07/30/21 07/30/21 07/30/21 05:30 05:41 05:51 Temperature Pulse Rate 77 78 77 Pulse Rate [ Anterior Left Throughout] Pulse Rate [ Anterior Right Throughout] Pulse Rate [ Bilateral Throughout] Pulse Rate [ From Monitor] Respiratory 18 16 16 Rate Respiratory Rate [Anterior Left Throughout ] Respiratory Rate [Anterior Right Throughout] Respiratory Rate [Bilateral Throughout] Respiratory Rate [Bilateral ] Blood Pressure 160/84 160/84 160/84 O2 Sat by Pulse 94 99 98 Oximetry O2 Sat by Pulse Oximetry [ Assessment] 07/30/21 07/30/21 07/30/21 05:53 06:00 06:11 Temperature Pulse Rate 76 77 88 Pulse Rate [ Anterior Left Throughout] Pulse Rate [ Anterior Right Throughout] Pulse Rate [ Bilateral Throughout] Pulse Rate [ From Monitor] Respiratory 15 17 Rate Respiratory Rate [Anterior Left Throughout ] Respiratory Rate [Anterior Right Throughout] Respiratory Rate [Bilateral Throughout] Respiratory Rate [Bilateral ] Blood Pressure 160/84 163/79 163/79 O2 Sat by Pulse 94 98 Oximetry O2 Sat by Pulse Oximetry [ Assessment] 07/30/21 07/30/21 07/30/21 06:21 06:30 06:41 Temperature Pulse Rate 79 79 78 Pulse Rate [ Anterior Left Throughout] Pulse Rate [ Anterior Right Throughout] Pulse Rate [ Bilateral Throughout] Pulse Rate [ From Monitor] Respiratory 13 10 L 17 Rate Respiratory Rate [Anterior Left Throughout ] Respiratory Rate [Anterior Right Throughout] Respiratory Rate [Bilateral Throughout] Respiratory Rate [Bilateral ] Blood Pressure 163/79 155/81 155/81 O2 Sat by Pulse 99 96 98 Oximetry O2 Sat by Pulse Oximetry [ Assessment] 07/30/21 07/30/21 07/30/21 06:51 07:00 07:11 Temperature Pulse Rate 78 76 76 Pulse Rate [ Anterior Left Throughout] Pulse Rate [ Anterior Right Throughout] Pulse Rate [ Bilateral Throughout] Pulse Rate [ From Monitor] Respiratory 16 10 L 11 L Rate Respiratory Rate [Anterior Left Throughout ] Respiratory Rate [Anterior Right Throughout] Respiratory Rate [Bilateral Throughout] Respiratory Rate [Bilateral ] Blood Pressure 155/81 153/79 153/79 O2 Sat by Pulse 99 95 99 Oximetry O2 Sat by Pulse Oximetry [ Assessment] 07/30/21 07/30/21 07/30/21 07:21 07:30 07:41 Temperature Pulse Rate 74 74 75 Pulse Rate [ Anterior Left Throughout] Pulse Rate [ Anterior Right Throughout] Pulse Rate [ Bilateral Throughout] Pulse Rate [ From Monitor] Respiratory 18 19 19 Rate Respiratory Rate [Anterior Left Throughout ] Respiratory Rate [Anterior Right Throughout] Respiratory Rate [Bilateral Throughout] Respiratory Rate [Bilateral ] Blood Pressure 153/79 153/86 153/86 O2 Sat by Pulse 100 96 99 Oximetry O2 Sat by Pulse Oximetry [ Assessment] 07/30/21 07/30/21 07/30/21 07:51 07:59 08:00 Temperature 98.5 F Pulse Rate 79 Pulse Rate [ 86 Anterior Left Throughout] Pulse Rate [ 78 Anterior Right Throughout] Pulse Rate [ 85 Bilateral Throughout] Pulse Rate [ 79 From Monitor] Respiratory 17 14 Rate Respiratory 20 Rate [Anterior Left Throughout ] Respiratory 20 Rate [Anterior Right Throughout] Respiratory 22 Rate [Bilateral Throughout] Respiratory 22 Rate [Bilateral ] Blood Pressure 153/86 O2 Sat by Pulse 99 97 Oximetry O2 Sat by Pulse Oximetry [ Assessment] 07/30/21 07/30/21 07/30/21 08:01 08:11 08:21 Temperature Pulse Rate 79 80 78 Pulse Rate [ Anterior Left Throughout] Pulse Rate [ Anterior Right Throughout] Pulse Rate [ Bilateral Throughout] Pulse Rate [ From Monitor] Respiratory 14 16 25 H Rate Respiratory Rate [Anterior Left Throughout ] Respiratory Rate [Anterior Right Throughout] Respiratory Rate [Bilateral Throughout] Respiratory Rate [Bilateral ] Blood Pressure 168/80 168/80 168/80 O2 Sat by Pulse 97 99 99 Oximetry O2 Sat by Pulse Oximetry [ Assessment] 07/30/21 07/30/21 07/30/21 08:30 08:41 08:51 Temperature Pulse Rate 76 73 81 Pulse Rate [ Anterior Left Throughout] Pulse Rate [ Anterior Right Throughout] Pulse Rate [ Bilateral Throughout] Pulse Rate [ From Monitor] Respiratory 31 H 20 14 Rate Respiratory Rate [Anterior Left Throughout ] Respiratory Rate [Anterior Right Throughout] Respiratory Rate [Bilateral Throughout] Respiratory Rate [Bilateral ] Blood Pressure 150/84 150/84 150/84 O2 Sat by Pulse 97 98 99 Oximetry O2 Sat by Pulse Oximetry [ Assessment] 07/30/21 07/30/21 07/30/21 09:00 09:11 09:21 Temperature Pulse Rate 74 77 78 Pulse Rate [ Anterior Left Throughout] Pulse Rate [ Anterior Right Throughout] Pulse Rate [ Bilateral Throughout] Pulse Rate [ From Monitor] Respiratory 19 15 19 Rate Respiratory Rate [Anterior Left Throughout ] Respiratory Rate [Anterior Right Throughout] Respiratory Rate [Bilateral Throughout] Respiratory Rate [Bilateral ] Blood Pressure 163/84 163/84 163/84 O2 Sat by Pulse 95 98 99 Oximetry O2 Sat by Pulse Oximetry [ Assessment] 07/30/21 07/30/21 07/30/21 09:30 09:41 09:51 Temperature Pulse Rate 81 79 Pulse Rate [ Anterior Left Throughout] Pulse Rate [ Anterior Right Throughout] Pulse Rate [ Bilateral Throughout] Pulse Rate [ From Monitor] Respiratory 17 21 14 Rate Respiratory Rate [Anterior Left Throughout ] Respiratory Rate [Anterior Right Throughout] Respiratory Rate [Bilateral Throughout] Respiratory Rate [Bilateral ] Blood Pressure 165/86 165/86 165/86 O2 Sat by Pulse 98 98 99 Oximetry O2 Sat by Pulse Oximetry [ Assessment] 07/30/21 07/30/21 07/30/21 10:00 10:11 10:21 Temperature Pulse Rate 79 78 79 Pulse Rate [ Anterior Left Throughout] Pulse Rate [ Anterior Right Throughout] Pulse Rate [ Bilateral Throughout] Pulse Rate [ From Monitor] Respiratory 18 16 17 Rate Respiratory Rate [Anterior Left Throughout ] Respiratory Rate [Anterior Right Throughout] Respiratory Rate [Bilateral Throughout] Respiratory Rate [Bilateral ] Blood Pressure 169/82 169/82 169/82 O2 Sat by Pulse 95 98 98 Oximetry O2 Sat by Pulse Oximetry [ Assessment] 07/30/21 07/30/21 07/30/21 10:22 10:30 10:41 Temperature Pulse Rate 77 78 79 Pulse Rate [ Anterior Left Throughout] Pulse Rate [ Anterior Right Throughout] Pulse Rate [ Bilateral Throughout] Pulse Rate [ From Monitor] Respiratory 16 18 Rate Respiratory Rate [Anterior Left Throughout ] Respiratory Rate [Anterior Right Throughout] Respiratory Rate [Bilateral Throughout] Respiratory Rate [Bilateral ] Blood Pressure 169/82 151/82 151/82 O2 Sat by Pulse 96 97 Oximetry O2 Sat by Pulse Oximetry [ Assessment] 07/30/21 07/30/21 07/30/21 10:51 11:00 11:11 Temperature Pulse Rate 81 77 83 Pulse Rate [ Anterior Left Throughout] Pulse Rate [ Anterior Right Throughout] Pulse Rate [ Bilateral Throughout] Pulse Rate [ From Monitor] Respiratory 14 15 15 Rate Respiratory Rate [Anterior Left Throughout ] Respiratory Rate [Anterior Right Throughout] Respiratory Rate [Bilateral Throughout] Respiratory Rate [Bilateral ] Blood Pressure 151/82 152/77 152/77 O2 Sat by Pulse 98 94 98 Oximetry O2 Sat by Pulse Oximetry [ Assessment] 07/30/21 07/30/21 07/30/21 11:21 11:30 11:41 Temperature Pulse Rate 77 76 79 Pulse Rate [ Anterior Left Throughout] Pulse Rate [ Anterior Right Throughout] Pulse Rate [ Bilateral Throughout] Pulse Rate [ From Monitor] Respiratory 18 18 15 Rate Respiratory Rate [Anterior Left Throughout ] Respiratory Rate [Anterior Right Throughout] Respiratory Rate [Bilateral Throughout] Respiratory Rate [Bilateral ] Blood Pressure 152/77 133/74 133/74 O2 Sat by Pulse 98 94 99 Oximetry O2 Sat by Pulse Oximetry [ Assessment] 07/30/21 07/30/21 07/30/21 11:51 12:00 12:11 Temperature 98.7 F Pulse Rate 76 73 78 Pulse Rate [ Anterior Left Throughout] Pulse Rate [ Anterior Right Throughout] Pulse Rate [ Bilateral Throughout] Pulse Rate [ 73 From Monitor] Respiratory 16 12 14 Rate Respiratory Rate [Anterior Left Throughout ] Respiratory Rate [Anterior Right Throughout] Respiratory Rate [Bilateral Throughout] Respiratory Rate [Bilateral ] Blood Pressure 133/74 150/81 150/81 O2 Sat by Pulse 100 96 100 Oximetry O2 Sat by Pulse Oximetry [ Assessment] 07/30/21 07/30/21 07/30/21 12:21 12:30 12:41 Temperature Pulse Rate 73 75 83 Pulse Rate [ Anterior Left Throughout] Pulse Rate [ Anterior Right Throughout] Pulse Rate [ Bilateral Throughout] Pulse Rate [ From Monitor] Respiratory 24 18 26 H Rate Respiratory Rate [Anterior Left Throughout ] Respiratory Rate [Anterior Right Throughout] Respiratory Rate [Bilateral Throughout] Respiratory Rate [Bilateral ] Blood Pressure 150/81 155/82 155/82 O2 Sat by Pulse 99 95 98 Oximetry O2 Sat by Pulse Oximetry [ Assessment] 07/30/21 07/30/21 07/30/21 12:45 12:51 13:00 Temperature Pulse Rate 82 77 Pulse Rate [ Anterior Left Throughout] Pulse Rate [ Anterior Right Throughout] Pulse Rate [ Bilateral Throughout] Pulse Rate [ From Monitor] Respiratory 17 19 Rate Respiratory Rate [Anterior Left Throughout ] Respiratory Rate [Anterior Right Throughout] Respiratory Rate [Bilateral Throughout] Respiratory Rate [Bilateral ] Blood Pressure 155/82 138/74 O2 Sat by Pulse 98 94 Oximetry O2 Sat by Pulse 98 Oximetry [ Assessment] 07/30/21 07/30/21 13:11 13:21 Temperature Pulse Rate 75 75 Pulse Rate [ Anterior Left Throughout] Pulse Rate [ Anterior Right Throughout] Pulse Rate [ Bilateral Throughout] Pulse Rate [ From Monitor] Respiratory 18 16 Rate Respiratory Rate [Anterior Left Throughout ] Respiratory Rate [Anterior Right Throughout] Respiratory Rate [Bilateral Throughout] Respiratory Rate [Bilateral ] Blood Pressure 138/74 138/74 O2 Sat by Pulse 97 97 Oximetry O2 Sat by Pulse Oximetry [ Assessment] Constitutional: no acute distress, other (atraumatic, normocephalic, trach to ATP) Eyes: non-icteric ENT: oropharynx moist, other (midline tracheostomy) Neck: supple, no lymphadenopathy, no JVD Effort: normal Ascultation: Bilateral: diminished breath sounds, rhonchi (scant) Percussion: Bilateral: not dull Cardiovascular: regular rate and rhythm, other (S1,S2) Gastrointestinal: normoactive bowel sounds, soft, non-tender, non-distended (protuberant), other (PEG) Integumentary: normal Extremities: no cyanosis, pulses normal, no ischemia or petechiae, edema Neurologic: non-focal exam (grossly), pupils equal and round, CN II-XII normal, other (moves all extremities) Psychiatric: mood appropriate, affect normal CBC and BMP: 07/30/21 04:19 07/30/21 04:19 ABG, PT/INR, D-dimer: ABG ABG pH 7.449 pH Units (7.350-7.450) 07/29/21 20:45 ABG pCO2 51.3 mm Hg 07/29/21 20:45 ABG pO2 85.8 mm Hg (80.0-90.0) 07/29/21 20:45 ABG O2 Saturation 97.0 % (95.0-99.0) 07/29/21 20:45 Abnormal lab findings: Abnormal Labs 07/25/21 07/25/21 07/25/21 11:19 21:50 Unknown WBC 18.1 H Hgb Hct MCV MCH RDW 16.2 H Seg Neuts % (Manual) Lymphocytes % (Manual) Seg Neutrophils # Man 12.1 H Lymphocytes # (Manual) ABG pH 6.917 L* ABG pO2 331.8 H ABG HCO3 39.3 H ABG O2 Saturation 99.4 H ABG Base Excess ABG Hemoglobin 12.1 L Oxyhemoglobin Sodium Potassium Chloride Carbon Dioxide BUN Creatinine Glucose POC Glucose Lactic Acid C-Reactive Protein Albumin Urine WBC (Auto) 26.0 H Urine Creatinine Urine Total Protein 07/25/21 07/25/21 07/25/21 Unknown Unknown Unknown WBC Hgb Hct MCV MCH RDW Seg Neuts % (Manual) Lymphocytes % (Manual) Seg Neutrophils # Man Lymphocytes # (Manual) ABG pH 7.029 L* ABG pO2 97.5 H ABG HCO3 37.2 H ABG O2 Saturation 93.5 L ABG Base Excess ABG Hemoglobin 12.7 L Oxyhemoglobin 91.7 L Sodium 129 L Potassium Chloride 90.1 L Carbon Dioxide BUN 8 L Creatinine Glucose 258 H POC Glucose Lactic Acid 4.90 H* C-Reactive Protein Albumin 3.8 L Urine WBC (Auto) Urine Creatinine Urine Total Protein 07/25/21 07/26/21 07/26/21 Unknown 00:10 03:50 WBC 15.5 H Hgb Hct MCV MCH RDW 15.4 H Seg Neuts % (Manual) 96.0 H Lymphocytes % (Manual) 3.0 L Seg Neutrophils # Man 14.9 H Lymphocytes # (Manual) 0.5 L ABG pH 7.217 L ABG pO2 162.9 H ABG HCO3 34.3 H ABG O2 Saturation ABG Base Excess 4.0 H ABG Hemoglobin 12.5 L Oxyhemoglobin Sodium Potassium Chloride Carbon Dioxide BUN Creatinine Glucose POC Glucose 158 H Lactic Acid C-Reactive Protein Albumin Urine WBC (Auto) Urine Creatinine Urine Total Protein 07/26/21 07/26/21 07/26/21 03:50 04:30 07:44 WBC Hgb Hct MCV MCH RDW Seg Neuts % (Manual) Lymphocytes % (Manual) Seg Neutrophils # Man Lymphocytes # (Manual) ABG pH 7.170 L* ABG pO2 65.5 L ABG HCO3 33.9 H ABG O2 Saturation ABG Base Excess ABG Hemoglobin 12.0 L Oxyhemoglobin 93.5 L Sodium 132 L Potassium 6.0 H D 5.6 H Chloride 93.2 L Carbon Dioxide BUN Creatinine Glucose 171 H POC Glucose Lactic Acid C-Reactive Protein Albumin 3.7 L Urine WBC (Auto) Urine Creatinine Urine Total Protein 07/26/21 07/26/21 07/27/21 12:34 17:18 04:54 WBC 11.9 H Hgb 11.1 L Hct 34.5 L MCV MCH 27 L RDW 15.5 H Seg Neuts % (Manual) Lymphocytes % (Manual) Seg Neutrophils # Man Lymphocytes # (Manual) ABG pH 7.286 L ABG pO2 100.0 H ABG HCO3 31.4 H ABG O2 Saturation ABG Base Excess 3.2 H ABG Hemoglobin 11.8 L Oxyhemoglobin Sodium Potassium Chloride Carbon Dioxide BUN Creatinine Glucose POC Glucose 111 H Lactic Acid C-Reactive Protein Albumin Urine WBC (Auto) Urine Creatinine Urine Total Protein 07/27/21 07/27/21 07/27/21 04:54 10:30 15:57 WBC Hgb Hct MCV MCH RDW Seg Neuts % (Manual) Lymphocytes % (Manual) Seg Neutrophils # Man Lymphocytes # (Manual) ABG pH ABG pO2 76.9 L ABG HCO3 30.2 H ABG O2 Saturation ABG Base Excess 3.9 H ABG Hemoglobin 11.2 L Oxyhemoglobin Sodium 136 L Potassium Chloride Carbon Dioxide BUN 37 H Creatinine 2.2 H D Glucose POC Glucose Lactic Acid C-Reactive Protein 2.40 H Albumin Urine WBC (Auto) Urine Creatinine Urine Total Protein 07/27/21 07/27/21 07/27/21 17:45 17:45 17:52 WBC Hgb Hct MCV MCH RDW Seg Neuts % (Manual) Lymphocytes % (Manual) Seg Neutrophils # Man Lymphocytes # (Manual) ABG pH ABG pO2 ABG HCO3 ABG O2 Saturation ABG Base Excess ABG Hemoglobin Oxyhemoglobin Sodium Potassium Chloride Carbon Dioxide BUN Creatinine Glucose POC Glucose 114 H Lactic Acid C-Reactive Protein Albumin Urine WBC (Auto) Urine Creatinine 106.0 H 105.6 H Urine Total Protein 30 H 07/28/21 07/28/21 07/28/21 04:32 04:32 11:19 WBC Hgb 11.0 L Hct 34.4 L MCV MCH 27 L RDW 16.0 H Seg Neuts % (Manual) Lymphocytes % (Manual) Seg Neutrophils # Man Lymphocytes # (Manual) ABG pH ABG pO2 ABG HCO3 ABG O2 Saturation ABG Base Excess ABG Hemoglobin Oxyhemoglobin Sodium 135 L Potassium Chloride Carbon Dioxide BUN 40 H Creatinine 2.3 H Glucose 124 H POC Glucose 117 H Lactic Acid C-Reactive Protein Albumin Urine WBC (Auto) Urine Creatinine Urine Total Protein 07/28/21 07/28/21 07/28/21 13:12 17:34 23:54 WBC Hgb Hct MCV MCH RDW Seg Neuts % (Manual) Lymphocytes % (Manual) Seg Neutrophils # Man Lymphocytes # (Manual) ABG pH ABG pO2 103.7 H ABG HCO3 32.7 H ABG O2 Saturation ABG Base Excess 7.1 H ABG Hemoglobin 10.8 L Oxyhemoglobin Sodium Potassium Chloride Carbon Dioxide BUN Creatinine Glucose POC Glucose 124 H 107 H Lactic Acid C-Reactive Protein Albumin Urine WBC (Auto) Urine Creatinine Urine Total Protein 07/29/21 07/29/21 07/29/21 05:09 05:39 09:00 WBC Hgb Hct MCV MCH RDW Seg Neuts % (Manual) Lymphocytes % (Manual) Seg Neutrophils # Man Lymphocytes # (Manual) ABG pH ABG pO2 131.5 H ABG HCO3 35.1 H ABG O2 Saturation ABG Base Excess 9.1 H ABG Hemoglobin 11.8 L Oxyhemoglobin Sodium Potassium Chloride Carbon Dioxide 32 H BUN 34 H Creatinine 2.1 H Glucose 124 H POC Glucose 120 H Lactic Acid C-Reactive Protein Albumin Urine WBC (Auto) Urine Creatinine Urine Total Protein 07/29/21 07/29/21 07/30/21 20:45 23:15 04:19 WBC Hgb Hct MCV MCH RDW Seg Neuts % (Manual) Lymphocytes % (Manual) Seg Neutrophils # Man Lymphocytes # (Manual) ABG pH ABG pO2 ABG HCO3 34.7 H ABG O2 Saturation ABG Base Excess 9.3 H ABG Hemoglobin 11.7 L Oxyhemoglobin Sodium Potassium Chloride Carbon Dioxide 33 H BUN 32 H Creatinine 2.2 H Glucose 108 H POC Glucose 114 H Lactic Acid C-Reactive Protein Albumin Urine WBC (Auto) Urine Creatinine Urine Total Protein 07/30/21 07/30/21 04:19 05:25 WBC Hgb 10.9 L Hct 32.6 L MCV 83 L MCH RDW 16.2 H Seg Neuts % (Manual) Lymphocytes % (Manual) Seg Neutrophils # Man Lymphocytes # (Manual) ABG pH ABG pO2 ABG HCO3 ABG O2 Saturation ABG Base Excess ABG Hemoglobin Oxyhemoglobin Sodium Potassium Chloride Carbon Dioxide BUN Creatinine Glucose POC Glucose 109 H Lactic Acid C-Reactive Protein Albumin Urine WBC (Auto) Urine Creatinine Urine Total Protein Allied health notes reviewed: nursing
[2021-07-30] MEDS: hydrALAZINE 25 MG TAB PO SCH ×2 (14:32→21:04)
[2021-07-30] MEDS ORDERED: MIDAZOLAM 2 MG/2 ML INJ IV PRN (14:34)
[2021-07-30] MEDS: oxyCODONE /ACETAMINOPHEN 5-325MG TAB PO PRN (20:45)
[2021-07-30] MEDS: SENNOSIDES/DOCUSATE SODIUM 8.6/50 MG TAB PO SCH (21:06)
[2021-07-31] MEDS: IPRATROPIUM/ALBUTEROL SULFATE 3 ML AMPUL.NEB IH SCH ×4 (00:05→20:36)
[2021-07-31] MEDS: hydrALAZINE 25 MG TAB PO SCH ×3 (05:39→22:30)
[2021-07-31] MEDS: INSULIN REGULAR, HUMAN 100 UNITS/1 ML SUB-Q SCH ×5 (05:42→23:33)
[2021-07-31] MEDS: CEFEPIME/NS 2 GM/100 ML 2 GM/100 ML BAG IV SCH (05:48)
[2021-07-31] MEDS: FAMOTIDINE 10 MG TAB FEEDTUBE SCH ×2 (09:35→22:27)
[2021-07-31] MEDS: amLODIPine 5 MG TAB FEEDTUBE SCH (09:36)
[2021-07-31] MEDS: HEPARIN 5,000 UNIT/1 ML VIAL SUB-Q SCH ×2 (09:36→22:27)
--- NOTE | 2021-07-31 11:11 | Progress Note ---
Assessment and Plan Assessment and plan: Interval history: This is a 61-year-old male who is a resident of a senior living facility with chronic hypoxic respiratory failure s/p trach with vent dependency, recent COVID-19 infection, ischemic cardiomyopathy, type 2 diabetes mellitus, obesity who presented to the emergency department on 07/25 via EMS with chief complaints of respiratory distress from his halfway. In the emergency department patient was placed on the ventilator as he was tachypneic, dyspneic and did not improve after suctioning. Work-up in the emergency department revealed lactic acidosis, leukocytosis and CXR revealed possible retrocardiac pneumonia and started on antibiotics for HAP. Patient was admitted to the hospitalist service with consults to [facility] with acute on chronic respiratory failure and HAP. Hospital course to date: 07/26: Stopped Solu-Medrol, given For hyperkalemia, started on tube feedings. Remains on fentanyl and Mucomyst 07/27: Renal indices increased, patient did receive Lasix x1 yesterday. Nephrology was consulted. Urine lites and bilateral renal ultrasound pending. Infectious disease consulted. Bladder scan performed and Good catheter placed. COVID 19 PCR negative 07/28: No acute events reported overnight, worsening renal function-nephrology is on the case. Continue with cefepime per ID. Vent changes per [facility]. 07/29: Slight improvement to renal function tests, remains on assist control. No acute events reported overnight. 07/30: Patient has been on T-piece all night. Renal function continues slightly worse however patient is still creating urine. Possible transfer to floor or imcu. Per pt he is requesting transfer to another halfway if needed on discharge. 07/31: IMCU currently. Resting comfortably. no complaints. ST/PT eval. Working with CM for placement back to LTAC. ID okay with discontinuing antibiotics. Discussed patient case with pulmonology as well Dr. Azul Assessment and plan: This is a 61 year old male from a SNF with chronic hypoxic resp failure s/p trach, recent COVID 19 infection, ischemic cardiomyopathy IDDM, obesity admitted with acute on chronic resp failure, HAP, hyperkalemia, and lactic acidosis. Neuro: NAD -p.o. oxycodone prn -Reorientation as needed -Maintain sleep-wake cycle -CT head continued mild microvascular angiopathy without clear CT evidence of acute intercranial hemorrhage Cardiac: h/o HTN -Cardiology consulted, appreciate recommendations -Blood pressure monitoring per protocol -03/09/21 Echocardiogram LVEF 60-65% -Amlodipine, Labetalol, hydralazine PO (titrate as tolerated) -Avoid ACEi or ARB in setting of MONIK Respiratory: Acute on chronic hypercapnic respiratory failure, s/p trach -CCM consulted, appreciate recommendations -T piece 35 % Fio2 -See RT notes for titration -Pulm hygiene -SPO2 monitoring GI: MO, moderate protein calorie malnutrition -24 hours + 398 mL -PPI -NTR consulted for tube feedings -s/p PEG tube in place -BR: Senokat S : Acute kidney injury (improving), h/o urinary retention -Nephrology consulted, appreciate recommendations -Renal ultrasound shows echogenic kidneys which can be seen with medical renal disease, no hydronephrosis -FeNa indicate prerenal -Monitor intake and output -Renally dose medications -Avoid nephrotoxic medications -Good catheter placed for urinary retention -Trend BMP ID: HAP (POA) -Infectious disease consulted, appreciate recommendations -COVID PCR (-) -MRSA PCR positive -07/25 BC x2 NGTD, UC NGTD -Antibiotic therapy with cefepime -f/u blood culture -Monitor WBC and temperature curve Endo: h/o DM -Avoid hypoglycemia -SSI -Accu-Cheks q. 6 Heme: Leukocytosis -Heparin subq -Trend CBC -Transfuse hemoglobin less than 7 -Monitor for signs of bleeding -SCDs to BLE while in bed The high probability of a clinically significant, sudden or life threatening deterioration of the [pulm] system(s) required my full and direct attention, intervention and personal management. The aggregate critical care time was [60] minutes. This time is in addition to time spent performing reported procedures but includes the following: [x] Data Review and interpretation [x] Patient assessment and monitoring of vital signs [x] Documentation [x] Medication orders and management Disposition Plan: icu Total Time Spent with Patient (Minutes): 60 History Interval history: No acute complaints. Resting comfortably. Expressed desire to swallow p.o. I explained to the patient he need to be evaluated by speech therapy first but would be okay if they cleared him. Hospitalist Physical - Physical exam Narrative exam: Physical Exam: VITAL SIGNS: Reviewed. GENERAL: The patient appears normally developed, Vital signs as documented. Pleasant gentleman. Elevated BMI HEAD: No signs of head trauma. EYES: Pupils are equal. Extraocular motions intact. EARS: Hearing grossly intact. MOUTH: Oropharynx is normal. NECK: T-piece, trach. No adenopathy, no JVD. CHEST: Chest with clear breath sounds bilaterally. No wheezes, rales, or rhonchi. CARDIAC: Regular rate and rhythm. S1 and S2, without murmurs, gallops, or rubs. VASCULAR: No Edema. Peripheral pulses normal and equal in all extremities. ABDOMEN: PEG tube. Soft, non tender and non distended. No rebound or guarding, and no masses palpated. Bowel Sounds normal. MUSCULOSKELETAL: Good range of motion of all major joints. Extremities without clubbing, cyanosis or edema. NEUROLOGIC EXAM: Alert and oriented x 4. no focal sensory or strength deficits. PSYCHIATRIC: Mood normal. SKIN: detail exam as documented in skin assessment - Constitutional Vitals: Temp Pulse Resp BP Pulse Ox 98.8 F 84 16 147/73 97 07/31/21 08:00 07/31/21 11:03 07/31/21 11:03 07/31/21 11:00 07/31/21 11:03 General appearance: Present: no acute distress, obese HEART Score - HEART Score Troponin: Troponin T < 0.010 ng/mL (0.00-0.029) 07/25/21 Unknown Results - Labs CBC & Chem 7: 07/30/21 04:19 07/31/21 04:26 Labs: Laboratory Last Values WBC 7.4 K/mm3 (4.5-11.0) 07/30/21 04:19 RBC 3.93 M/mm3 (3.65-5.03) 07/30/21 04:19 Hgb 10.9 gm/dl (11.8-15.2) L 07/30/21 04:19 Hct 32.6 % (35.5-45.6) L 07/30/21 04:19 MCV 83 fl (84-94) L 07/30/21 04:19 MCH 28 pg (28-32) 07/30/21 04:19 MCHC 34 % (32-34) 07/30/21 04:19 RDW 16.2 % (13.2-15.2) H 07/30/21 04:19 Plt Count 324 K/mm3 (140-440) 07/30/21 04:19 Lymph # (Auto) Hot Saw Helper 07/25/21 Unknown Add Manual Diff Complete 07/26/21 03:50 Total Counted 100 07/26/21 03:50 Seg Neuts % (Manual) 96.0 % (40.0-70.0) H 07/26/21 03:50 Band Neutrophils % 0 % 07/26/21 03:50 Lymphocytes % (Manual) 3.0 % (13.4-35.0) L 07/26/21 03:50 Reactive Lymphs % (Man) 0 % 07/26/21 03:50 Monocytes % (Manual) 1.0 % (0.0-7.3) 07/26/21 03:50 Eosinophils % (Manual) 0 % (0.0-4.3) 07/26/21 03:50 Basophils % (Manual) 0 % (0.0-1.8) 07/26/21 03:50 Metamyelocytes % 0 % 07/26/21 03:50 Myelocytes % 0 % 07/26/21 03:50 Promyelocytes % 0 % 07/26/21 03:50 Blast Cells % 0 % 07/26/21 03:50 Nucleated RBC % Not Reportable 07/26/21 03:50 Seg Neutrophils # Man 14.9 K/mm3 (1.8-7.7) H 07/26/21 03:50 Band Neutrophils # 0.0 K/mm3 07/26/21 03:50 Lymphocytes # (Manual) 0.5 K/mm3 (1.2-5.4) L 07/26/21 03:50 Abs React Lymphs (Man) 0.0 K/mm3 07/26/21 03:50 Monocytes # (Manual) 0.2 K/mm3 (0.0-0.8) 07/26/21 03:50 Eosinophils # (Manual) 0.0 K/mm3 (0.0-0.4) 07/26/21 03:50 Basophils # (Manual) 0.0 K/mm3 (0.0-0.1) 07/26/21 03:50 Metamyelocytes # 0.0 K/mm3 07/26/21 03:50 Myelocytes # 0.0 K/mm3 07/26/21 03:50 Promyelocytes # 0.0 K/mm3 07/26/21 03:50 Blast Cells # 0.0 K/mm3 07/26/21 03:50 WBC Morphology Not Reportable 07/26/21 03:50 Hypersegmented Neuts Not Reportable 07/26/21 03:50 Hyposegmented Neuts Not Reportable 07/26/21 03:50 Hypogranular Neuts Not Reportable 07/26/21 03:50 Smudge Cells Not Reportable 07/26/21 03:50 Toxic Granulation Not Reportable 07/26/21 03:50 Toxic Vacuolation Not Reportable 07/26/21 03:50 Dohle Bodies Not Reportable 07/26/21 03:50 Pelger-Huet Anomaly Not Reportable 07/26/21 03:50 Mely Rods Not Reportable 07/26/21 03:50 Platelet Estimate Consistent w auto 07/26/21 03:50 Clumped Platelets Not Reportable 07/26/21 03:50 Plt Clumps, EDTA Not Reportable 07/26/21 03:50 Large Platelets Not Reportable 07/26/21 03:50 Giant Platelets Not Reportable 07/26/21 03:50 Platelet Satelliting Not Reportable 07/26/21 03:50 Plt Morphology Comment Not Reportable 07/26/21 03:50 RBC Morphology Not Reportable 07/26/21 03:50 Dimorphic RBCs Not Reportable 07/26/21 03:50 Polychromasia Not Reportable 07/26/21 03:50 Hypochromasia Not Reportable 07/26/21 03:50 Poikilocytosis Not Reportable 07/26/21 03:50 Anisocytosis 1+ 07/26/21 03:50 Microcytosis Not Reportable 07/26/21 03:50 Macrocytosis Not Reportable 07/26/21 03:50 Spherocytes Few 07/26/21 03:50 Pappenheimer Bodies Not Reportable 07/26/21 03:50 Sickle Cells Not Reportable 07/26/21 03:50 Target Cells Not Reportable 07/26/21 03:50 Tear Drop Cells Not Reportable 07/26/21 03:50 Ovalocytes Not Reportable 07/26/21 03:50 Helmet Cells Not Reportable 07/26/21 03:50 [place] Bodies Not Reportable 07/26/21 03:50 [place] Rings Not Reportable 07/26/21 03:50 Shama Cells Not Reportable 07/26/21 03:50 Bite Cells Not Reportable 07/26/21 03:50 Crenated Cell Not Reportable 07/26/21 03:50 Elliptocytes Not Reportable 07/26/21 03:50 Acanthocytes (Spur) Not Reportable 07/26/21 03:50 Rouleaux Not Reportable 07/26/21 03:50 Hemoglobin C Crystals Not Reportable 07/26/21 03:50 Schistocytes Not Reportable 07/26/21 03:50 Malaria parasites Not Reportable 07/26/21 03:50 Shaheen Bodies Not Reportable 07/26/21 03:50 Hem Pathologist Commnt No 07/26/21 03:50 ABG pH 7.449 pH Units (7.350-7.450) 07/29/21 20:45 ABG pCO2 51.3 mm Hg 07/29/21 20:45 ABG pO2 85.8 mm Hg (80.0-90.0) 07/29/21 20:45 ABG HCO3 34.7 mmol/L (20.0-26.0) H 07/29/21 20:45 ABG O2 Saturation 97.0 % (95.0-99.0) 07/29/21 20:45 ABG O2 Content 15.7 (0.0-44) 07/29/21 20:45 ABG Base Excess 9.3 mmol/L (-2.0-3.0) H 07/29/21 20:45 ABG Hemoglobin 11.7 gm/dl (14.0-18.0) L 07/29/21 20:45 ABG Carboxyhemoglobin 1.2 % (0.0-5.0) 07/29/21 20:45 ABG Methemoglobin 0.6 % (0.0-1.5) 07/29/21 20:45 Oxyhemoglobin 95.2 % (95.0-99.0) 07/29/21 20:45 FiO2 35 % 07/29/21 20:45 Sodium 141 mmol/L (137-145) 07/31/21 04:26 Potassium 4.7 mmol/L (3.6-5.0) 07/31/21 04:26 Chloride 100.2 mmol/L (98-107) 07/31/21 04:26 Carbon Dioxide 32 mmol/L (22-30) H 07/31/21 04:26 Anion Gap 14 mmol/L 07/31/21 04:26 BUN 30 mg/dL (9-20) H 07/31/21 04:26 Creatinine 2.1 mg/dL (0.8-1.3) H 07/31/21 04:26 Estimated GFR 32 ml/min 07/31/21 04:26 BUN/Creatinine Ratio 14 % 07/31/21 04:26 Glucose 108 mg/dL (75-100) H 07/31/21 04:26 POC Glucose 124 mg/dL (70-105) H 07/31/21 05:35 Hemoglobin A1c 5.9 % (4-6) 07/26/21 03:50 Lactic Acid 4.90 mmol/L (0.7-2.0) H* 07/25/21 Unknown Calcium 10.0 mg/dL (8.4-10.2) 07/31/21 04:26 Total Bilirubin 0.20 mg/dL (0.1-1.2) 07/26/21 03:50 AST 19 units/L (5-40) 07/26/21 03:50 ALT 11 units/L (7-56) 07/26/21 03:50 Alkaline Phosphatase 73 units/L (35-129) 07/26/21 03:50 Troponin T < 0.010 ng/mL (0.00-0.029) 07/25/21 Unknown C-Reactive Protein 2.40 mg/dL (0.00-1.30) H 07/27/21 15:57 Total Protein 8.2 g/dL (6.3-8.2) 07/26/21 03:50 Albumin 3.7 g/dL (3.9-5) L 07/26/21 03:50 Albumin/Globulin Ratio 0.8 % 07/26/21 03:50 Procalcitonin 0.77 ng/mL (<0.15) 07/27/21 15:57 Urine Color Yellow (Yellow) 07/25/21 11:19 Urine Turbidity Cloudy (Clear) 07/25/21 11:19 Urine pH 6.0 (5.0-7.0) 07/25/21 11:19 Ur Specific [place] 1.015 (1.003-1.030) 07/25/21 11:19 Urine Protein >500 mg/dL (Negative) 07/25/21 11:19 Urine Glucose (UA) 150 mg/dL (Negative) 07/25/21 11:19 Urine Ketones Neg mg/dL (Negative) 07/25/21 11:19 Urine Blood Neg (Negative) 07/25/21 11:19 Urine Nitrite Neg (Negative) 07/25/21 11:19 Urine Bilirubin Neg (Negative) 07/25/21 11:19 Urine Urobilinogen < 2.0 mg/dL (<2.0) 07/25/21 11:19 Ur Leukocyte Esterase Neg (Negative) 07/25/21 11:19 Urine WBC (Auto) 26.0 /HPF (0.0-6.0) H 07/25/21 11:19 Urine RBC (Auto) 53.0 /HPF (0.0-6.0) 07/25/21 11:19 U Epithel Cells (Auto) 7.0 /HPF (0-13.0) 07/25/21 11:19 Urine Bacteria (Auto) 4+ /HPF (Negative) 07/25/21 11:19 Hyaline Casts 21 /LPF 07/25/21 11:19 Urine Mucus Few /HPF 07/25/21 11:19 Urine Yeast (Budding) 2+ /HPF 07/25/21 11:19 Urine Sperm 3+ /HPF ([employer] TE[employer]ER) 07/25/21 11:19 Urine Eosinophils None seen (None Seen) 07/27/21 17:45 Urine Creatinine 105.6 mg/dL (0.1-20.0) H 07/27/21 17:45 Urine Creatinine 106.0 mg/dL (0.1-20.0) H 07/27/21 17:45 Protein/Creatinin Ratio 0.28 07/27/21 17:45 Urine Sodium 46 mmol/L 07/27/21 17:45 Urine Total Protein 30 mg/dL (5-11.8) H 07/27/21 17:45 Nasal Screen MRSA (PCR) Positive (Negative) 07/26/21 16:30 Coronavirus (PCR) Negative (Negative) 07/27/21 09:00 Hepatitis A IgM Ab Non-reactive (NonReactive) 07/27/21 18:17 Hep Bs Antigen Non-reactive (Negative) 07/27/21 18:17 Hep B Core IgM Ab Non-reactive (NonReactive) 07/27/21 18:17 Hepatitis C Antibody Non-reactive (NonReactive) 07/27/21 18:17 Microbiology: Microbiology 07/27/21 18:36 Tracheal Aspirate Sputum Culture - Final 07/25/21 11:44 Peripheral/Venous Blood Culture - Final NO GROWTH AFTER 5 DAYS 07/25/21 11:23 Peripheral/Venous Blood Culture - Final NO GROWTH AFTER 5 DAYS Good/IV: Voiding Method Indwelling Catheter Active Medications - Current Medications Current Medications: Generic Name Dose Route Start Last Admin Trade Name Freq PRN Reason Stop Dose Admin Acetaminophen 650 mg 07/25/21 16:00 Acetaminophen 325 Mg Tab PO Q4H PRN Pain MILD(1-3)/Fever >100.5/RAYO Albuterol/Ipratropium 1 ampul 07/26/21 16:00 07/31/21 08:40 Ipratropium/Albuterol Sulfate 3 Ml Ampul.Neb IH 1 ampul Q8HRT BLANCA Administration Amlodipine Besylate 10 mg 07/28/21 10:00 07/31/21 09:36 Amlodipine 5 Mg Tab FEEDTUBE 10 mg QDAY BLANCA Administration Lipase/Protease/Amylase 1 each 07/26/21 14:56 Lipase 10,500/Protease 25,000/Amylase 43,750 (Units) Dr Zambrano FEEDTKIMBER PRN PRN For Clogged Feeding Tube Dextrose 50 ml 07/26/21 12:22 Dextrose 50% In Water (25gm) 50 Ml Syringe IV Q30MIN PRN Hypoglycemia Protocol Famotidine 10 mg 07/27/21 10:00 07/31/21 09:35 Famotidine 10 Mg Tab FEEDTUBE 10 mg BID BLANCA Administration Heparin Sodium (Porcine) 5,000 unit 07/25/21 16:00 07/31/21 09:36 Heparin 5,000 Unit/1 Ml Vial SUB-Q 5,000 unit Q12HR BLANCA Administration Hydralazine HCl 25 mg 07/30/21 14:00 07/31/21 05:39 Hydralazine 25 Mg Tab PO 25 mg Q8HR BLANCA Administration Hydralazine HCl 15 mg 07/30/21 07:44 Hydralazine 20 Mg/1 Ml Inj IV Q6H PRN Blood Pressure Cefepime HCl 2 gm in 100 mls @ 200 mls/hr 07/27/21 18:00 07/31/21 05:48 Cefepime/Ns 2 Gm/100 Ml IV 08/05/21 06:29 200 mls/hr Q12H BLANCA Administration Protocol Insulin Human Regular 0 units 07/26/21 12:00 07/31/21 05:42 Insulin Regular, Human 100 Units/1 Ml SUB-Q Not Given Q6HR [facility] Protocol Labetalol HCl 100 mg 07/28/21 10:00 07/31/21 09:35 Labetalol 100 Mg Tab FEEDTUBE 100 mg BID BLANCA Administration Midazolam HCl 2 mg 07/30/21 14:34 Midazolam 2 Mg/2 Ml Inj IV 08/01/21 14:33 Q2H PRN Agitation Ondansetron HCl 4 mg 07/25/21 16:00 Ondansetron 4 Mg/2 Ml Inj IV Q8H PRN Nausea And Vomiting Oxycodone/Acetaminophen 1 tab 07/27/21 12:27 07/30/21 20:45 Oxycodone /Acetaminophen 5-325mg Tab PO 1 tab Q6H PRN Administration Pain, Moderate (4-6) Polyethylene Glycol 17 gm 07/26/21 17:04 Polyethylene Glycol 3350 17 Gm Powder PO QDAY PRN Constipation Senna/Docusate Sodium 1 tab 07/26/21 22:00 07/30/21 21:06 Sennosides/Docusate Sodium 8.6/50 Mg Tab PO 1 tab QHS BLANCA Administration Simple Syrup 15 ml 07/26/21 14:56 Simple Syrup 15 Ml FEEDTUBE PRN PRN Hypoglycemia Simple Syrup 30 ml 07/26/21 14:56 Simple Syrup 15 Ml FEEDTUBE PRN PRN Hypoglycemia Sodium Bicarbonate 325 mg 07/26/21 14:56 Sodium Bicarbonate 325 Mg Tab FEEDTUBE PRN PRN For Clogged Feeding Tube Sodium Chloride 10 ml 07/25/21 22:00 07/31/21 09:36 Sodium Chloride 0.9% 10 Ml Flush Syringe IV 10 ml BID BLANCA Administration Sodium Chloride 10 ml 07/25/21 16:00 07/26/21 00:08 Sodium Chloride 0.9% 10 Ml Flush Syringe IV 10 ml PRN PRN Administration LINE FLUSH Nutrition/Malnutrition Assess - Dietary Evaluation Nutrition/Malnutrition Findings: Nutrition Notes Start: 07/26/21 14:26 Freq: Status: Active Protocol: Document 07/28/21 15:11 BRIAN (Rec: 07/28/21 15:21 BRIAN [email or web address]) Nutrition Notes Initial or Follow up Reassessment Current Diagnosis Acute Kidney Injury,Diabetes, Hypertension,Respiratory Failure Other Pertinent Diagnosis Pneu Current Diet TF - Glucerna 1.2 at 65ml/hr Labs/Tests Na 135 BUN 40 Cr 2.3 A1C 5.9 Pertinent Medications Reviewed Height 6 ft Weight 113.398 kg [place] Body Weight (kg) 80.90 BMI 33.9 Weight Status Obese Subjective/Other Information Per RN, pt tolerating TF at goal rate. Pt remains on vent support. Percent of energy/protein needs met: 79% energy 100% pro Burn Absent Trauma Absent #1 Nutrition Diagnosis Swallowing difficulty Diagnosis Progress(for reassessment Continues documentation) Is patient on ventilator? Yes Is Patient Ambulatory and/or Out of Bed No REE-([facility]-confined to bed) 2365.068 Kcal/Kg value to use for calculation 14 Approximate Energy Requirements Using 1588 kcal/Kg Calculation Used for Recommendations 65-70% REE Additional Notes Energy needs: 9940-6884 kcal/ day Pro needs 0.8-1.2g/kg adjBW: 78-117g/day Fluid needs 1ml/kcal Nutrition Intervention Nutrition Support: Decrease TF rate to 55ml/hr with 85ml water flush q4h. Kcal 1,584 Protein (gm) 79 Carbohydrates (gm) 151 Fat (gm) 79 Fluid (mL) 1,063 Fiber (gm) 21 Goal #1 TF tolerance Goal #2 TF to meet 65-70% energy and at least 75% pro needs Anticipated Discharge Needs: Continue TF Follow-Up By: 07/31/21 Additional Comments F/U: TF rate decrease/ tolerance, vent status, renal function
[2021-07-31 11:37] LABS: Myeloperoxidase Antibody <1.0 AI (<1.0)
--- NOTE | 2021-07-31 11:39 | Progress Note ---
Assessment and Plan Acute and chronic hypoxemic and hypercapnic Respiratory Failure 2/2 HCAP on MVS HCAP AE-CHF exacerbation s/p Tracheostomy Oropharyngeal dysphagia s/p PEG h/o Ischemic cardiomyopathy - PMV trials as tolerated - continue ATP RTC as tolerated - transfer to medical floor ok - continue care as below otherwise; - complete AB's per ID rec's (Cefepime) - continue contact isolation re: MRSA - continue to wean supplemental oxygen for target O2 sat's > 90% acutely - aspiration precautions - continue lung protective strategies - continue bronchodilators with pulmonary hygiene per RT - wean per pulmonary driven protocols otherwise - continue accuchecks with glycemic control per SSI for target blood glucose of < 180 mg/dL; avoid hypoglycemia - sedation prn for target RASS 0 to -1 - avoid nephrotoxins, renally dose all medications - continue to avoid benzodiazepine's, reduce the possibility of delirium - prn analgesia per pain score - Maintenance of sleep-wake cycle, avoid delirium - continue enteral nutritional support at goal rate as tolerated - G.I. & VTE prophylaxis - PT/OT/ROM exercises - continue mobility protocols for pressure ulcer prophylaxis - Monitor hemodynamics closely - continue other care per attending / other consultants - discharge planning ongoing concurrently COVID SPECIFIC INTERVENTIONS - COVID-19 PCR negative .... Re-evaluate in am & prn Subjective Date of service: 07/31/21 Principal diagnosis: Ac and ch hypoxemic and hypercapnic Resp Failure; HCAP; AE- CHF; s/p Trach Interval history: Patient is seen today for: Acute and chronic hypoxemic and hypercapnic Respiratory Failure; HCAP; AE-CHF; s/p Tracheostomy; H/O Ischemic cardiomyopathy Seen and examined at bedside; 24hour events reviewed; nursing and respiratory care staff consulted; no adverse overnight events reported to me; resting peacefully in bed; started swallow evaluation today but has boot been cleared for a diet yet; denies chest pain or SOB Objective Vital Signs - 12hr 07/31/21 07/31/21 07/31/21 00:00 00:05 01:01 Temperature 98.6 F Pulse Rate 79 102 H Pulse Rate [ 85 Bilateral Throughout] Pulse Rate [ From Monitor] Respiratory 14 15 Rate Respiratory 13 Rate [Bilateral Throughout] Blood Pressure 138/74 143/69 O2 Sat by Pulse 100 96 Oximetry O2 Sat by Pulse Oximetry [ Assessment] 07/31/21 07/31/2122 02:00 03:00 03:44 Temperature 99.0 F Pulse Rate 90 87 Pulse Rate [ Bilateral Throughout] Pulse Rate [ From Monitor] Respiratory 14 19 Rate Respiratory Rate [Bilateral Throughout] Blood Pressure 148/72 138/72 O2 Sat by Pulse 96 96 Oximetry O2 Sat by Pulse Oximetry [ Assessment] 07/31/21 07/31/21 07/31/21 03:45 04:00 05:00 Temperature Pulse Rate 87 87 Pulse Rate [ Bilateral Throughout] Pulse Rate [ 87 From Monitor] Respiratory 17 15 Rate Respiratory Rate [Bilateral Throughout] Blood Pressure 148/86 144/80 O2 Sat by Pulse 100 99 Oximetry O2 Sat by Pulse 99 Oximetry [ Assessment] 07/31/21 07/31/21 07/31/21 05:39 06:01 07:00 Temperature Pulse Rate 90 87 88 Pulse Rate [ Bilateral Throughout] Pulse Rate [ From Monitor] Respiratory 15 17 Rate Respiratory Rate [Bilateral Throughout] Blood Pressure 144/80 138/77 141/83 O2 Sat by Pulse 98 100 Oximetry O2 Sat by Pulse Oximetry [ Assessment] 07/31/21 07/31/21 07/31/21 08:00 09:01 09:35 Temperature 98.8 F Pulse Rate 84 87 118 H Pulse Rate [ Bilateral Throughout] Pulse Rate [ 93 H From Monitor] Respiratory 18 17 Rate Respiratory Rate [Bilateral Throughout] Blood Pressure 156/82 154/77 154/77 O2 Sat by Pulse 100 98 Oximetry O2 Sat by Pulse Oximetry [ Assessment] 07/31/21 07/31/21 07/31/21 09:36 10:00 11:00 Temperature Pulse Rate 114 H 85 81 Pulse Rate [ Bilateral Throughout] Pulse Rate [ From Monitor] Respiratory 16 17 Rate Respiratory Rate [Bilateral Throughout] Blood Pressure 154/77 137/78 147/73 O2 Sat by Pulse 97 98 Oximetry O2 Sat by Pulse Oximetry [ Assessment] 07/31/21 07/31/21 07/31/21 11:02 11:03 11:13 Temperature 98.9 F Pulse Rate 84 Pulse Rate [ Bilateral Throughout] Pulse Rate [ 84 From Monitor] Respiratory 16 Rate Respiratory Rate [Bilateral Throughout] Blood Pressure O2 Sat by Pulse 97 Oximetry O2 Sat by Pulse Oximetry [ Assessment] Constitutional: no acute distress, other (atraumatic, normocephalic, trach to ATP) Eyes: non-icteric ENT: oropharynx moist, other (midline tracheostomy) Neck: supple, no lymphadenopathy, no JVD Effort: normal Ascultation: Bilateral: rhonchi (scant) Percussion: Bilateral: not dull Cardiovascular: regular rate and rhythm, other (S1,S2) Gastrointestinal: normoactive bowel sounds, soft, non-tender, non-distended (protuberant), other (PEG) Integumentary: normal Extremities: no cyanosis, pulses normal, no ischemia or petechiae, edema Neurologic: non-focal exam (grossly), pupils equal and round, CN II-XII normal, other (moves all extremities) Psychiatric: mood appropriate, affect normal CBC and BMP: 07/30/21 04:19 07/31/21 04:26 ABG, PT/INR, D-dimer: ABG ABG pH 7.449 pH Units (7.350-7.450) 07/29/21 20:45 ABG pCO2 51.3 mm Hg 07/29/21 20:45 ABG pO2 85.8 mm Hg (80.0-90.0) 07/29/21 20:45 ABG O2 Saturation 97.0 % (95.0-99.0) 07/29/21 20:45 Abnormal lab findings: Abnormal Labs 07/25/21 07/25/21 07/25/21 11:19 21:50 Unknown WBC 18.1 H Hgb Hct MCV MCH RDW 16.2 H Seg Neuts % (Manual) Lymphocytes % (Manual) Seg Neutrophils # Man 12.1 H Lymphocytes # (Manual) ABG pH 6.917 L* ABG pO2 331.8 H ABG HCO3 39.3 H ABG O2 Saturation 99.4 H ABG Base Excess ABG Hemoglobin 12.1 L Oxyhemoglobin Sodium Potassium Chloride Carbon Dioxide BUN Creatinine Glucose POC Glucose Lactic Acid C-Reactive Protein Albumin Urine WBC (Auto) 26.0 H Urine Creatinine Urine Total Protein 07/25/21 07/25/21 07/25/21 Unknown Unknown Unknown WBC Hgb Hct MCV MCH RDW Seg Neuts % (Manual) Lymphocytes % (Manual) Seg Neutrophils # Man Lymphocytes # (Manual) ABG pH 7.029 L* ABG pO2 97.5 H ABG HCO3 37.2 H ABG O2 Saturation 93.5 L ABG Base Excess ABG Hemoglobin 12.7 L Oxyhemoglobin 91.7 L Sodium 129 L Potassium Chloride 90.1 L Carbon Dioxide BUN 8 L Creatinine Glucose 258 H POC Glucose Lactic Acid 4.90 H* C-Reactive Protein Albumin 3.8 L Urine WBC (Auto) Urine Creatinine Urine Total Protein 07/25/21 07/26/21 07/26/21 Unknown 00:10 03:50 WBC 15.5 H Hgb Hct MCV MCH RDW 15.4 H Seg Neuts % (Manual) 96.0 H Lymphocytes % (Manual) 3.0 L Seg Neutrophils # Man 14.9 H Lymphocytes # (Manual) 0.5 L ABG pH 7.217 L ABG pO2 162.9 H ABG HCO3 34.3 H ABG O2 Saturation ABG Base Excess 4.0 H ABG Hemoglobin 12.5 L Oxyhemoglobin Sodium Potassium Chloride Carbon Dioxide BUN Creatinine Glucose POC Glucose 158 H Lactic Acid C-Reactive Protein Albumin Urine WBC (Auto) Urine Creatinine Urine Total Protein 07/26/21 07/26/21 07/26/21 03:50 04:30 07:44 WBC Hgb Hct MCV MCH RDW Seg Neuts % (Manual) Lymphocytes % (Manual) Seg Neutrophils # Man Lymphocytes # (Manual) ABG pH 7.170 L* ABG pO2 65.5 L ABG HCO3 33.9 H ABG O2 Saturation ABG Base Excess ABG Hemoglobin 12.0 L Oxyhemoglobin 93.5 L Sodium 132 L Potassium 6.0 H D 5.6 H Chloride 93.2 L Carbon Dioxide BUN Creatinine Glucose 171 H POC Glucose Lactic Acid C-Reactive Protein Albumin 3.7 L Urine WBC (Auto) Urine Creatinine Urine Total Protein 07/26/21 07/26/21 07/27/21 12:34 17:18 04:54 WBC 11.9 H Hgb 11.1 L Hct 34.5 L MCV MCH 27 L RDW 15.5 H Seg Neuts % (Manual) Lymphocytes % (Manual) Seg Neutrophils # Man Lymphocytes # (Manual) ABG pH 7.286 L ABG pO2 100.0 H ABG HCO3 31.4 H ABG O2 Saturation ABG Base Excess 3.2 H ABG Hemoglobin 11.8 L Oxyhemoglobin Sodium Potassium Chloride Carbon Dioxide BUN Creatinine Glucose POC Glucose 111 H Lactic Acid C-Reactive Protein Albumin Urine WBC (Auto) Urine Creatinine Urine Total Protein 07/27/21 07/27/21 07/27/21 04:54 10:30 15:57 WBC Hgb Hct MCV MCH RDW Seg Neuts % (Manual) Lymphocytes % (Manual) Seg Neutrophils # Man Lymphocytes # (Manual) ABG pH ABG pO2 76.9 L ABG HCO3 30.2 H ABG O2 Saturation ABG Base Excess 3.9 H ABG Hemoglobin 11.2 L Oxyhemoglobin Sodium 136 L Potassium Chloride Carbon Dioxide BUN 37 H Creatinine 2.2 H D Glucose POC Glucose Lactic Acid C-Reactive Protein 2.40 H Albumin Urine WBC (Auto) Urine Creatinine Urine Total Protein 07/27/21 07/27/21 07/27/21 17:45 17:45 17:52 WBC Hgb Hct MCV MCH RDW Seg Neuts % (Manual) Lymphocytes % (Manual) Seg Neutrophils # Man Lymphocytes # (Manual) ABG pH ABG pO2 ABG HCO3 ABG O2 Saturation ABG Base Excess ABG Hemoglobin Oxyhemoglobin Sodium Potassium Chloride Carbon Dioxide BUN Creatinine Glucose POC Glucose 114 H Lactic Acid C-Reactive Protein Albumin Urine WBC (Auto) Urine Creatinine 106.0 H 105.6 H Urine Total Protein 30 H 07/28/21 07/28/21 07/28/21 04:32 04:32 11:19 WBC Hgb 11.0 L Hct 34.4 L MCV MCH 27 L RDW 16.0 H Seg Neuts % (Manual) Lymphocytes % (Manual) Seg Neutrophils # Man Lymphocytes # (Manual) ABG pH ABG pO2 ABG HCO3 ABG O2 Saturation ABG Base Excess ABG Hemoglobin Oxyhemoglobin Sodium 135 L Potassium Chloride Carbon Dioxide BUN 40 H Creatinine 2.3 H Glucose 124 H POC Glucose 117 H Lactic Acid C-Reactive Protein Albumin Urine WBC (Auto) Urine Creatinine Urine Total Protein 07/28/21 07/28/21 07/28/21 13:12 17:34 23:54 WBC Hgb Hct MCV MCH RDW Seg Neuts % (Manual) Lymphocytes % (Manual) Seg Neutrophils # Man Lymphocytes # (Manual) ABG pH ABG pO2 103.7 H ABG HCO3 32.7 H ABG O2 Saturation ABG Base Excess 7.1 H ABG Hemoglobin 10.8 L Oxyhemoglobin Sodium Potassium Chloride Carbon Dioxide BUN Creatinine Glucose POC Glucose 124 H 107 H Lactic Acid C-Reactive Protein Albumin Urine WBC (Auto) Urine Creatinine Urine Total Protein 07/29/21 07/29/21 07/29/21 05:09 05:39 09:00 WBC Hgb Hct MCV MCH RDW Seg Neuts % (Manual) Lymphocytes % (Manual) Seg Neutrophils # Man Lymphocytes # (Manual) ABG pH ABG pO2 131.5 H ABG HCO3 35.1 H ABG O2 Saturation ABG Base Excess 9.1 H ABG Hemoglobin 11.8 L Oxyhemoglobin Sodium Potassium Chloride Carbon Dioxide 32 H BUN 34 H Creatinine 2.1 H Glucose 124 H POC Glucose 120 H Lactic Acid C-Reactive Protein Albumin Urine WBC (Auto) Urine Creatinine Urine Total Protein 07/29/21 07/29/21 07/30/21 20:45 23:15 04:19 WBC Hgb Hct MCV MCH RDW Seg Neuts % (Manual) Lymphocytes % (Manual) Seg Neutrophils # Man Lymphocytes # (Manual) ABG pH ABG pO2 ABG HCO3 34.7 H ABG O2 Saturation ABG Base Excess 9.3 H ABG Hemoglobin 11.7 L Oxyhemoglobin Sodium Potassium Chloride Carbon Dioxide 33 H BUN 32 H Creatinine 2.2 H Glucose 108 H POC Glucose 114 H Lactic Acid C-Reactive Protein Albumin Urine WBC (Auto) Urine Creatinine Urine Total Protein 07/30/21 07/30/21 07/31/21 04:19 05:25 04:26 WBC Hgb 10.9 L Hct 32.6 L MCV 83 L MCH RDW 16.2 H Seg Neuts % (Manual) Lymphocytes % (Manual) Seg Neutrophils # Man Lymphocytes # (Manual) ABG pH ABG pO2 ABG HCO3 ABG O2 Saturation ABG Base Excess ABG Hemoglobin Oxyhemoglobin Sodium Potassium Chloride Carbon Dioxide 32 H BUN 30 H Creatinine 2.1 H Glucose 108 H POC Glucose 109 H Lactic Acid C-Reactive Protein Albumin Urine WBC (Auto) Urine Creatinine Urine Total Protein 07/31/21 05:35 WBC Hgb Hct MCV MCH RDW Seg Neuts % (Manual) Lymphocytes % (Manual) Seg Neutrophils # Man Lymphocytes # (Manual) ABG pH ABG pO2 ABG HCO3 ABG O2 Saturation ABG Base Excess ABG Hemoglobin Oxyhemoglobin Sodium Potassium Chloride Carbon Dioxide BUN Creatinine Glucose POC Glucose 124 H Lactic Acid C-Reactive Protein Albumin Urine WBC (Auto) Urine Creatinine Urine Total Protein Allied health notes reviewed: nursing
--- NOTE | 2021-07-31 12:18 | Progress Note ---
Assessment and Plan Cultures: 07/25/2021 urine culture: No growth 07/25/2021 blood culture: No growth 07/27/2021 sputum culture: Usual respiratory marlyn MRSA nasal PCR: Positive A/P: 61 year old male from a SNF with chronic hypoxic resp failure s/p trach, recent COVID 19 infection, ischemic cardiomyopathy IDDM, obesity admitted with acute on chronic resp failure, HAP, hyperkalemia, and lactic acidosis: #Acute on chronic respiratory failure: improving bilateral opacities from previous when he completed 2 weeks of high-dose cefazolin due to his weight. Leukocytosis has resolved. No fever. #Diabetes: tight glycemic control for best outcomes. #MONIK: Renally dose medications. Recs: -Afebrile, chest x-ray without any infiltrates, WBC now normal. Will discontinue antibiotics Sangita Nicole MD, FACP, [facility] ([facility] O: [phone] F: [phone] C: [phone] Subjective Date of service: 07/31/21 Principal diagnosis: Ac and ch hypoxemic and hypercapnic Resp Failure; HCAP; AE- CHF; s/p Trach Interval history: Afebrile. Awake, responsive, no distress. Trach present. Objective - Exam Narrative Exam: Physical Exam: Constitutional: Alert, no distress, trach present Head, Ears, Nose: Normocephalic, atraumatic. External ears, nose normal Eyes: Conjunctivae/corneas clear. No icterus. No ptosis. Neck: Trach + Cardiovascular: S1, S2 + Respiratory: Good air entry, clear to auscultation bilaterally GI: Soft, non-tender; bowel sounds normal. No peritoneal signs. G-tube + Musculoskeletal: No pedal edema, no cyanosis. Skin: No rash or abscess Hem/Lymphatic: No palpable cervical or supraclavicular nodes. No lymphangitis Psych: Mood ok. Affect normal Neurological: Awake, responsive. - Constitutional Vitals: Vital Signs Temp Pulse Resp BP Pulse Ox 98.9 F 84 16 147/73 97 07/31/21 11:13 07/31/21 11:03 07/31/21 11:03 07/31/21 11:00 07/31/21 11:03 Temperature -Last 24 Hours Temperature 98.9 F Temperature 98.8 F Temperature 99.0 F Temperature 98.6 F Temperature 99.0 F Temperature 98.3 F - Labs CBC & Chem 7: 07/30/21 04:19 07/31/21 04:26 Labs: Abnormal lab results 07/31/21 07/31/21 Range/Units 04:26 05:35 Carbon Dioxide 32 H (22-30) mmol/L BUN 30 H (9-20) mg/dL Creatinine 2.1 H (0.8-1.3) mg/dL Glucose 108 H (75-100) mg/dL POC Glucose 124 H (70-105) mg/dL
--- NOTE | 2021-07-31 14:58 | Progress Note ---
Subjective Principal diagnosis: Ac and ch hypoxemic and hypercapnic Resp Failure; HCAP; AE- CHF; s/p Trach Interval history: Patient was evaluated today, My assessment and plan are as follows #Acute kidney injury most likely multifactorial in the setting of COVID-19 infection, patient also noted to be hypoxemic, currently using oxygen, does have some risk factors for underlying chronic kidney disease, continue with supportive care avoid any form of nephrotoxic medications, Creatinine upon admission was 0.8 most likely etiology appears to be due to hypoxic variety of respiratory failure, possibility of ongoing cardiorenal injury cannot be completely excluded patient renal prognosis appears to be guarded to poor There is no indication for renal placement therapy at this time monitor electrolytes Renal ultrasonogram showed evidence of chronic kidney disease #Noted to have proteinuria in the setting of acute kidney injury, protein creatinine ratio was nearly 300 mg, Progress note by: Florian Pineda MD [address] [place] [id number] Tele [phone] [email or web address] Patient was seen today for follow-up of multiple renal related issues Interdisciplinary notes that also reviewed Events of 24 hours vitals labs intake output medications were reviewed Past medical history: Reviewed Family history: Reviewed Social history: Reviewed Allergies: Reviewed Physical examination: Vitals: Reviewed HEENT: No pallor or icterus oral mucosa moist Neck: Supple no JVD no thyromegaly Chest: Bilateral Few basilar crackles Heart: Regular rate and rhythm S1-S2 heard no S3-S4 Abdomen: Soft nontender no voluntary guarding rigidity rebound Extremity: Dry skin less than 1+ peripheral edema Psychiatric: No evidence of agitation and aggression noted Dermatology: No petechial rashes Labs and x-rays: Reviewed from today Objective - Vital Signs Vital signs: Vital Signs - 12hr 07/31/21 07/31/21 07/31/21 03:00 03:44 03:45 Temperature 99.0 F Pulse Rate 87 Pulse Rate [ From Monitor] Respiratory 19 Rate Blood Pressure 138/72 O2 Sat by Pulse 96 Oximetry O2 Sat by Pulse 99 Oximetry [ Assessment] 07/31/21 07/31/21 07/31/21 04:00 05:00 05:39 Temperature Pulse Rate 87 87 90 Pulse Rate [ 87 From Monitor] Respiratory 17 15 Rate Blood Pressure 148/86 144/80 144/80 O2 Sat by Pulse 100 99 Oximetry O2 Sat by Pulse Oximetry [ Assessment] 07/31/21 07/31/21 07/31/21 06:01 07:00 08:00 Temperature 98.8 F Pulse Rate 87 88 84 Pulse Rate [ 93 H From Monitor] Respiratory 15 17 18 Rate Blood Pressure 138/77 141/83 156/82 O2 Sat by Pulse 98 100 100 Oximetry O2 Sat by Pulse Oximetry [ Assessment] 07/31/21 07/31/21 07/31/21 09:01 09:35 09:36 Temperature Pulse Rate 87 118 H 114 H Pulse Rate [ From Monitor] Respiratory 17 Rate Blood Pressure 154/77 154/77 154/77 O2 Sat by Pulse 98 Oximetry O2 Sat by Pulse Oximetry [ Assessment] 07/31/21 07/31/21 07/31/21 10:00 11:00 11:02 Temperature Pulse Rate 85 81 84 Pulse Rate [ From Monitor] Respiratory 16 17 Rate Blood Pressure 137/78 147/73 O2 Sat by Pulse 97 98 Oximetry O2 Sat by Pulse Oximetry [ Assessment] 07/31/21 07/31/21 07/31/21 11:03 11:13 12:00 Temperature 98.9 F Pulse Rate 80 Pulse Rate [ 84 From Monitor] Respiratory 16 17 Rate Blood Pressure 128/75 O2 Sat by Pulse 97 99 Oximetry O2 Sat by Pulse Oximetry [ Assessment] 07/31/21 14:42 Temperature Pulse Rate 97 H Pulse Rate [ From Monitor] Respiratory Rate Blood Pressure 161/80 O2 Sat by Pulse Oximetry O2 Sat by Pulse Oximetry [ Assessment] - Lab 07/30/21 04:19 07/31/21 04:26 Most recent lab results ABG pH 7.449 pH Units (7.350-7.450) 07/29/21 20:45 ABG pCO2 51.3 mm Hg 07/29/21 20:45 ABG pO2 85.8 mm Hg (80.0-90.0) 07/29/21 20:45 ABG HCO3 34.7 mmol/L (20.0-26.0) H 07/29/21 20:45 ABG O2 Saturation 97.0 % (95.0-99.0) 07/29/21 20:45 Calcium 10.0 mg/dL (8.4-10.2) 07/31/21 04:26 Urine Creatinine 105.6 mg/dL (0.1-20.0) H 07/27/21 17:45 Urine Creatinine 106.0 mg/dL (0.1-20.0) H 07/27/21 17:45 Urine Sodium 46 mmol/L 07/27/21 17:45 Urine Total Protein 30 mg/dL (5-11.8) H 07/27/21 17:45 Medications & Allergies - Medications Allergies/Adverse Reactions: Allergies No Known Allergies Allergy (Verified 07/25/21 11:02) Home Medications: Home Medications Medication Instructions Recorded Confirmed Last Taken Type No Known Home Medications [No 03/11/21 03/11/21 Unknown History Reported Home Medications] Apixaban [Eliquis] 5 mg FEEDTUBE Q12HR 30 Days #60 05/02/21 Unknown Rx tablet Doxazosin [Cardura] 1 mg FEEDTUBE BID 30 Days #60 05/02/21 Unknown Rx tablet Famotidine [Pepcid] 20 mg FEEDTUBE BID 30 Days #60 05/02/21 Unknown Rx tablet Glycopyrrolate 2 mg PO TID 30 Days #90 tablet 05/02/21 Unknown Rx Insulin Glargine [Lantus VIAL] 18 units SUB-Q QHS 30 Days #2 vial 05/02/21 Un known Rx Metoprolol [Lopressor TAB] 12.5 mg FEEDTUBE BID 30 Days #60 05/02/21 Unknown Rx tablet amLODIPine 10 mg FEEDTUBE DAILY 30 Days #30 05/02/21 Unknown Rx tablet cephALEXin [Keflex] 500 mg PO Q8HR 2 Days #6 cap 05/02/21 Unknown Rx hydrALAZINE [Apresoline TAB] 50 mg FEEDTUBE Q8HR 30 Days #90 05/02/21 Unknown Rx tablet Active Medications: Generic Name Dose Route Start Last Admin Trade Name Freq PRN Reason Stop Dose Admin Acetaminophen 650 mg 07/25/21 16:00 Acetaminophen 325 Mg Tab PO Q4H PRN Pain MILD(1-3)/Fever >100.5/RAYO Albuterol/Ipratropium 1 ampul 07/26/21 16:00 07/31/21 08:40 Ipratropium/Albuterol Sulfate 3 Ml Ampul.Neb IH 1 ampul Q8HRT BLANCA Administration Amlodipine Besylate 10 mg 07/28/21 10:00 07/31/21 09:36 Amlodipine 5 Mg Tab FEEDTUBE 10 mg QDAY BLANCA Administration Lipase/Protease/Amylase 1 each 07/26/21 14:56 Lipase 10,500/Protease 25,000/Amylase 43,750 (Units) Dr Zambrano FEEDTUBE PRN PRN For Clogged Feeding Tube Dextrose 50 ml 07/26/21 12:22 Dextrose 50% In Water (25gm) 50 Ml Syringe IV Q30MIN PRN Hypoglycemia Protocol Famotidine 10 mg 07/27/21 10:00 07/31/21 09:35 Famotidine 10 Mg Tab FEEDTUBE 10 mg BID BLANCA Administration Heparin Sodium (Porcine) 5,000 unit 07/25/21 16:00 07/31/21 09:36 Heparin 5,000 Unit/1 Ml Vial SUB-Q 5,000 unit Q12HR BLANCA Administration Hydralazine HCl 25 mg 07/30/21 14:00 07/31/21 14:42 Hydralazine 25 Mg Tab PO 25 mg Q8HR BLANCA Administration Hydralazine HCl 15 mg 07/30/21 07:44 Hydralazine 20 Mg/1 Ml Inj IV Q6H PRN Blood Pressure Insulin Human Regular 0 units 07/26/21 12:00 07/31/21 11:14 Insulin Regular, Human 100 Units/1 Ml SUB-Q Not Given Q6HR BLANCA Protocol Labetalol HCl 100 mg 07/28/21 10:00 07/31/21 09:35 Labetalol 100 Mg Tab FEEDTUBE 100 mg BID BLANCA Administration Midazolam HCl 2 mg 07/30/21 14:34 Midazolam 2 Mg/2 Ml Inj IV 08/01/21 14:33 Q2H PRN Agitation Ondansetron HCl 4 mg 07/25/21 16:00 Ondansetron 4 Mg/2 Ml Inj IV Q8H PRN Nausea And Vomiting Oxycodone/Acetaminophen 1 tab 07/27/21 12:27 07/30/21 20:45 Oxycodone /Acetaminophen 5-325mg Tab PO 1 tab Q6H PRN Administration Pain, Moderate (4-6) Polyethylene Glycol 17 gm 07/26/21 17:04 Polyethylene Glycol 3350 17 Gm Powder PO QDAY PRN Constipation Senna/Docusate Sodium 1 tab 07/26/21 22:00 07/30/21 21:06 Sennosides/Docusate Sodium 8.6/50 Mg Tab PO 1 tab QHS BLANCA Administration Simple Syrup 15 ml 07/26/21 14:56 Simple Syrup 15 Ml FEEDTUBE PRN PRN Hypoglycemia Simple Syrup 30 ml 07/26/21 14:56 Simple Syrup 15 Ml FEEDTUBE PRN PRN Hypoglycemia Sodium Bicarbonate 325 mg 07/26/21 14:56 Sodium Bicarbonate 325 Mg Tab FEEDTUBE PRN PRN For Clogged Feeding Tube Sodium Chloride 10 ml 07/25/21 22:00 07/31/21 09:36 Sodium Chloride 0.9% 10 Ml Flush Syringe IV 10 ml BID BLANCA Administration Sodium Chloride 10 ml 07/25/21 16:00 07/26/21 00:08 Sodium Chloride 0.9% 10 Ml Flush Syringe IV 10 ml PRN PRN Administration LINE FLUSH
[2021-07-31] MEDS: SENNOSIDES/DOCUSATE SODIUM 8.6/50 MG TAB PO SCH (22:27)
[2021-08-01] MEDS: IPRATROPIUM/ALBUTEROL SULFATE 3 ML AMPUL.NEB IH SCH ×3 (01:41→16:09)
[2021-08-01] MEDS: INSULIN REGULAR, HUMAN 100 UNITS/1 ML SUB-Q SCH ×3 (05:26→17:52)
[2021-08-01] MEDS: hydrALAZINE 25 MG TAB PO SCH ×3 (05:27→22:13)
[2021-08-01 06:22] LABS: Calcium 9.9 mg/dL (8.4-10.2)
--- NOTE | 2021-08-01 11:20 | Progress Note ---
Assessment and Plan Acute and chronic hypoxemic and hypercapnic Respiratory Failure 2/2 HCAP on MVS HCAP AE-CHF exacerbation s/p Tracheostomy Oropharyngeal dysphagia s/p PEG h/o Ischemic cardiomyopathy - continue PMV trials as tolerated - continue ATP RTC as tolerated - discharge planning ok pulmonary-vu - continue care as below otherwise; - complete AB's per ID rec's (Cefepime) - continue contact isolation re: MRSA - continue to wean supplemental oxygen for target O2 sat's > 90% acutely - aspiration precautions - continue lung protective strategies - continue bronchodilators with pulmonary hygiene per RT - wean per pulmonary driven protocols otherwise - continue accuchecks with glycemic control per SSI for target blood glucose of < 180 mg/dL; avoid hypoglycemia - sedation prn for target RASS 0 to -1 - avoid nephrotoxins, renally dose all medications - continue to avoid benzodiazepine's, reduce the possibility of delirium - prn analgesia per pain score - Maintenance of sleep-wake cycle, avoid delirium - continue enteral nutritional support at goal rate as tolerated - G.I. & VTE prophylaxis - PT/OT/ROM exercises - continue mobility protocols for pressure ulcer prophylaxis - Monitor hemodynamics closely - continue other care per attending / other consultants - discharge planning ongoing concurrently COVID SPECIFIC INTERVENTIONS - COVID-19 PCR negative .... Re-evaluate in am & prn Subjective Date of service: 08/01/21 Principal diagnosis: Ac and ch hypoxemic and hypercapnic Resp Failure; HCAP; AE- CHF; s/p Trach Interval history: Patient is seen today for: Acute and chronic hypoxemic and hypercapnic Respiratory Failure; HCAP; AE-CHF; s/p Tracheostomy; H/O Ischemic cardiomyopathy Seen and examined at bedside; 24hour events reviewed; nursing and respiratory care staff consulted; no adverse overnight events reported to me; resting peacefully in bed; feels good; about to east lunch after passing swallow evaluation; No N/V/F/C; remains on ATP Objective Vital Signs - 12hr 08/01/21 05:29 Temperature 98.3 F Pulse Rate 78 Respiratory 20 Rate Blood Pressure 147/79 O2 Sat by Pulse 98 Oximetry Constitutional: no acute distress, other (atraumatic, normocephalic, trach to ATP) Eyes: non-icteric ENT: oropharynx moist, other (midline tracheostomy) Neck: supple, no lymphadenopathy, no JVD Effort: normal Ascultation: Bilateral: rhonchi (scant) Percussion: Bilateral: not dull Cardiovascular: regular rate and rhythm, other (S1,S2) Gastrointestinal: normoactive bowel sounds, soft, non-tender, non-distended (protuberant), other (PEG) Integumentary: normal Extremities: no cyanosis, pulses normal, no ischemia or petechiae, edema Neurologic: non-focal exam (grossly), pupils equal and round, CN II-XII normal, motor strength normal and, other (moves all extremities) Psychiatric: mood appropriate, affect normal CBC and BMP: 07/30/21 04:19 08/01/21 05:42 ABG, PT/INR, D-dimer: ABG ABG pH 7.449 pH Units (7.350-7.450) 07/29/21 20:45 ABG pCO2 51.3 mm Hg 07/29/21 20:45 ABG pO2 85.8 mm Hg (80.0-90.0) 07/29/21 20:45 ABG O2 Saturation 97.0 % (95.0-99.0) 07/29/21 20:45 Abnormal lab findings: Abnormal Labs 07/25/21 07/25/21 07/25/21 11:19 21:50 Unknown WBC 18.1 H Hgb Hct MCV MCH RDW 16.2 H Seg Neuts % (Manual) Lymphocytes % (Manual) Seg Neutrophils # Man 12.1 H Lymphocytes # (Manual) ABG pH 6.917 L* ABG pO2 331.8 H ABG HCO3 39.3 H ABG O2 Saturation 99.4 H ABG Base Excess ABG Hemoglobin 12.1 L Oxyhemoglobin Sodium Potassium Chloride Carbon Dioxide BUN Creatinine Glucose POC Glucose Lactic Acid C-Reactive Protein Albumin Urine WBC (Auto) 26.0 H Urine Creatinine Urine Total Protein 07/25/21 07/25/21 07/25/21 Unknown Unknown Unknown WBC Hgb Hct MCV MCH RDW Seg Neuts % (Manual) Lymphocytes % (Manual) Seg Neutrophils # Man Lymphocytes # (Manual) ABG pH 7.029 L* ABG pO2 97.5 H ABG HCO3 37.2 H ABG O2 Saturation 93.5 L ABG Base Excess ABG Hemoglobin 12.7 L Oxyhemoglobin 91.7 L Sodium 129 L Potassium Chloride 90.1 L Carbon Dioxide BUN 8 L Creatinine Glucose 258 H POC Glucose Lactic Acid 4.90 H* C-Reactive Protein Albumin 3.8 L Urine WBC (Auto) Urine Creatinine Urine Total Protein 07/25/21 07/26/21 07/26/21 Unknown 00:10 03:50 WBC 15.5 H Hgb Hct MCV MCH RDW 15.4 H Seg Neuts % (Manual) 96.0 H Lymphocytes % (Manual) 3.0 L Seg Neutrophils # Man 14.9 H Lymphocytes # (Manual) 0.5 L ABG pH 7.217 L ABG pO2 162.9 H ABG HCO3 34.3 H ABG O2 Saturation ABG Base Excess 4.0 H ABG Hemoglobin 12.5 L Oxyhemoglobin Sodium Potassium Chloride Carbon Dioxide BUN Creatinine Glucose POC Glucose 158 H Lactic Acid C-Reactive Protein Albumin Urine WBC (Auto) Urine Creatinine Urine Total Protein 07/26/21 07/26/21 07/26/21 03:50 04:30 07:44 WBC Hgb Hct MCV MCH RDW Seg Neuts % (Manual) Lymphocytes % (Manual) Seg Neutrophils # Man Lymphocytes # (Manual) ABG pH 7.170 L* ABG pO2 65.5 L ABG HCO3 33.9 H ABG O2 Saturation ABG Base Excess ABG Hemoglobin 12.0 L Oxyhemoglobin 93.5 L Sodium 132 L Potassium 6.0 H D 5.6 H Chloride 93.2 L Carbon Dioxide BUN Creatinine Glucose 171 H POC Glucose Lactic Acid C-Reactive Protein Albumin 3.7 L Urine WBC (Auto) Urine Creatinine Urine Total Protein 07/26/21 07/26/21 07/27/21 12:34 17:18 04:54 WBC 11.9 H Hgb 11.1 L Hct 34.5 L MCV MCH 27 L RDW 15.5 H Seg Neuts % (Manual) Lymphocytes % (Manual) Seg Neutrophils # Man Lymphocytes # (Manual) ABG pH 7.286 L ABG pO2 100.0 H ABG HCO3 31.4 H ABG O2 Saturation ABG Base Excess 3.2 H ABG Hemoglobin 11.8 L Oxyhemoglobin Sodium Potassium Chloride Carbon Dioxide BUN Creatinine Glucose POC Glucose 111 H Lactic Acid C-Reactive Protein Albumin Urine WBC (Auto) Urine Creatinine Urine Total Protein 07/27/21 07/27/21 07/27/21 04:54 10:30 15:57 WBC Hgb Hct MCV MCH RDW Seg Neuts % (Manual) Lymphocytes % (Manual) Seg Neutrophils # Man Lymphocytes # (Manual) ABG pH ABG pO2 76.9 L ABG HCO3 30.2 H ABG O2 Saturation ABG Base Excess 3.9 H ABG Hemoglobin 11.2 L Oxyhemoglobin Sodium 136 L Potassium Chloride Carbon Dioxide BUN 37 H Creatinine 2.2 H D Glucose POC Glucose Lactic Acid C-Reactive Protein 2.40 H Albumin Urine WBC (Auto) Urine Creatinine Urine Total Protein 07/27/21 07/27/21 07/27/21 17:45 17:45 17:52 WBC Hgb Hct MCV MCH RDW Seg Neuts % (Manual) Lymphocytes % (Manual) Seg Neutrophils # Man Lymphocytes # (Manual) ABG pH ABG pO2 ABG HCO3 ABG O2 Saturation ABG Base Excess ABG Hemoglobin Oxyhemoglobin Sodium Potassium Chloride Carbon Dioxide BUN Creatinine Glucose POC Glucose 114 H Lactic Acid C-Reactive Protein Albumin Urine WBC (Auto) Urine Creatinine 106.0 H 105.6 H Urine Total Protein 30 H 07/28/21 07/28/21 07/28/21 04:32 04:32 11:19 WBC Hgb 11.0 L Hct 34.4 L MCV MCH 27 L RDW 16.0 H Seg Neuts % (Manual) Lymphocytes % (Manual) Seg Neutrophils # Man Lymphocytes # (Manual) ABG pH ABG pO2 ABG HCO3 ABG O2 Saturation ABG Base Excess ABG Hemoglobin Oxyhemoglobin Sodium 135 L Potassium Chloride Carbon Dioxide BUN 40 H Creatinine 2.3 H Glucose 124 H POC Glucose 117 H Lactic Acid C-Reactive Protein Albumin Urine WBC (Auto) Urine Creatinine Urine Total Protein 07/28/21 07/28/21 07/28/21 13:12 17:34 23:54 WBC Hgb Hct MCV MCH RDW Seg Neuts % (Manual) Lymphocytes % (Manual) Seg Neutrophils # Man Lymphocytes # (Manual) ABG pH ABG pO2 103.7 H ABG HCO3 32.7 H ABG O2 Saturation ABG Base Excess 7.1 H ABG Hemoglobin 10.8 L Oxyhemoglobin Sodium Potassium Chloride Carbon Dioxide BUN Creatinine Glucose POC Glucose 124 H 107 H Lactic Acid C-Reactive Protein Albumin Urine WBC (Auto) Urine Creatinine Urine Total Protein 07/29/21 07/29/21 07/29/21 05:09 05:39 09:00 WBC Hgb Hct MCV MCH RDW Seg Neuts % (Manual) Lymphocytes % (Manual) Seg Neutrophils # Man Lymphocytes # (Manual) ABG pH ABG pO2 131.5 H ABG HCO3 35.1 H ABG O2 Saturation ABG Base Excess 9.1 H ABG Hemoglobin 11.8 L Oxyhemoglobin Sodium Potassium Chloride Carbon Dioxide 32 H BUN 34 H Creatinine 2.1 H Glucose 124 H POC Glucose 120 H Lactic Acid C-Reactive Protein Albumin Urine WBC (Auto) Urine Creatinine Urine Total Protein 07/29/21 07/29/21 07/30/21 20:45 23:15 04:19 WBC Hgb Hct MCV MCH RDW Seg Neuts % (Manual) Lymphocytes % (Manual) Seg Neutrophils # Man Lymphocytes # (Manual) ABG pH ABG pO2 ABG HCO3 34.7 H ABG O2 Saturation ABG Base Excess 9.3 H ABG Hemoglobin 11.7 L Oxyhemoglobin Sodium Potassium Chloride Carbon Dioxide 33 H BUN 32 H Creatinine 2.2 H Glucose 108 H POC Glucose 114 H Lactic Acid C-Reactive Protein Albumin Urine WBC (Auto) Urine Creatinine Urine Total Protein 07/30/21 07/30/21 07/31/21 04:19 05:25 04:26 WBC Hgb 10.9 L Hct 32.6 L MCV 83 L MCH RDW 16.2 H Seg Neuts % (Manual) Lymphocytes % (Manual) Seg Neutrophils # Man Lymphocytes # (Manual) ABG pH ABG pO2 ABG HCO3 ABG O2 Saturation ABG Base Excess ABG Hemoglobin Oxyhemoglobin Sodium Potassium Chloride Carbon Dioxide 32 H BUN 30 H Creatinine 2.1 H Glucose 108 H POC Glucose 109 H Lactic Acid C-Reactive Protein Albumin Urine WBC (Auto) Urine Creatinine Urine Total Protein 07/31/21 07/31/21 08/01/21 05:35 23:23 05:42 WBC Hgb Hct MCV MCH RDW Seg Neuts % (Manual) Lymphocytes % (Manual) Seg Neutrophils # Man Lymphocytes # (Manual) ABG pH ABG pO2 ABG HCO3 ABG O2 Saturation ABG Base Excess ABG Hemoglobin Oxyhemoglobin Sodium Potassium Chloride Carbon Dioxide 33 H BUN 29 H Creatinine 2.0 H Glucose 106 H POC Glucose 124 H 116 H Lactic Acid C-Reactive Protein Albumin Urine WBC (Auto) Urine Creatinine Urine Total Protein Allied health notes reviewed: nursing
[2021-08-01] MEDS: FAMOTIDINE 10 MG TAB FEEDTUBE SCH ×2 (11:31→22:13)
[2021-08-01] MEDS: amLODIPine 5 MG TAB FEEDTUBE SCH (11:32)
[2021-08-01] MEDS: HEPARIN 5,000 UNIT/1 ML VIAL SUB-Q SCH ×2 (11:32→22:12)
--- NOTE | 2021-08-01 11:34 | Progress Note ---
Assessment and Plan Assessment and plan: This is a 61-year-old male who is a resident of a snf facility with chronic hypoxic respiratory failure s/p trach with vent dependency, recent COVID-19 infection, ischemic cardiomyopathy, type 2 diabetes mellitus, obesity who presented to the emergency department on 07/25 via EMS with chief complaints of respiratory distress from his halfway. In the emergency department patient was placed on the ventilator as he was tachypneic, dyspneic and did not improve after suctioning. Work-up in the emergency department revealed lactic acidosis, leukocytosis and CXR revealed possible retrocardiac pneumonia and started on antibiotics for HAP. Patient was admitted to the hospitalist service with consults to [facility] with acute on chronic respiratory failure and HAP. Hospital course to date: 07/26: Stopped Solu-Medrol, given For hyperkalemia, started on tube feedings. Remains on fentanyl and Mucomyst 07/27: Renal indices increased, patient did receive Lasix x1 yesterday. Nephrology was consulted. Urine lites and bilateral renal ultrasound pending. Infectious disease consulted. Bladder scan performed and Good catheter placed. COVID 19 PCR negative 07/28: No acute events reported overnight, worsening renal function-nephrology is on the case. Continue with cefepime per ID. Vent changes per [facility]. 07/29: Slight improvement to renal function tests, remains on assist control. No acute events reported overnight. 07/30: Patient has been on T-piece all night. Renal function continues slightly worse however patient is still creating urine. Possible transfer to floor or imcu. Per pt he is requesting transfer to another halfway if needed on discharge. 07/31: IMCU currently. Resting comfortably. no complaints. ST/PT eval. Working with CM for placement back to LTAC. ID okay with discontinuing antibiotics. Discussed patient case with pulmonology as well Dr. Azul 08/01: Patient still requiring 8 L of O2 via T-piece. Case management working for possible placement at LTAC. ID discontinue antibiotics. Continue PMV trials as tolerated. Assessment and plan: This is a 61 year old male from a SNF with chronic hypoxic resp failure s/p trach, recent COVID 19 infection, ischemic cardiomyopathy IDDM, obesity admitted with acute on chronic resp failure, HAP, hyperkalemia, and lactic acidosis. Neuro: NAD -p.o. oxycodone prn -Reorientation as needed -Maintain sleep-wake cycle -CT head continued mild microvascular angiopathy without clear CT evidence of acute intercranial hemorrhage Cardiac: h/o HTN -Cardiology consulted, appreciate recommendations -Blood pressure monitoring per protocol -03/09/21 Echocardiogram LVEF 60-65% -Amlodipine, Labetalol, hydralazine PO (titrate as tolerated) -Avoid ACEi or ARB in setting of MONIK Respiratory: Acute on chronic hypercapnic respiratory failure, s/p trach -CCM consulted, appreciate recommendations -T piece 35 % Fio2 -See RT notes for titration -Pulm hygiene -SPO2 monitoring GI: MO, moderate protein calorie malnutrition -24 hours + 398 mL -PPI -NTR consulted for tube feedings -s/p PEG tube in place -BR: Senokat S : Acute kidney injury (improving), h/o urinary retention -Nephrology consulted, appreciate recommendations -Renal ultrasound shows echogenic kidneys which can be seen with medical renal disease, no hydronephrosis -FeNa indicate prerenal -Monitor intake and output -Renally dose medications -Avoid nephrotoxic medications -Good catheter placed for urinary retention -Trend BMP ID: HAP (POA) -Infectious disease consulted, appreciate recommendations -COVID PCR (-) -MRSA PCR positive -07/25 BC x2 NGTD, UC NGTD -Antibiotic therapy with cefepime -f/u blood culture -Monitor WBC and temperature curve Endo: h/o DM -Avoid hypoglycemia -SSI -Accu-Cheks q. 6 Heme: Leukocytosis -Heparin subq -Trend CBC -Transfuse hemoglobin less than 7 -Monitor for signs of bleeding -SCDs to BLE while in bed History Interval history: No new issues overnight Hospitalist Physical - Constitutional Vitals: Temp Pulse Resp BP Pulse Ox 98.4 F 87 20 147/85 100 08/01/21 11:27 08/01/21 11:27 08/01/21 11:27 08/01/21 11:27 08/01/21 11:27 General appearance: Present: no acute distress, obese - EENT Eyes: Present: PERRL, EOM intact ENT: hearing intact, clear oral mucosa, dentition normal - Neck Neck: Present: supple, normal ROM - Respiratory Respiratory effort: normal Respiratory: bilateral: CTA - Cardiovascular Rhythm: regular Heart Sounds: Present: S1 & S2. Absent: gallop, rub - Extremities Extremities: no ischemia, No edema, Full ROM - Abdominal General gastrointestinal: soft, non-tender, non-distended, normal bowel sounds - Integumentary Integumentary: Present: clear, warm, dry - Neurologic Neurologic: CNII-XII intact, moves all extremities HEART Score - HEART Score Troponin: Troponin T < 0.010 ng/mL (0.00-0.029) 07/25/21 Unknown Results - Labs CBC & Chem 7: 07/30/21 04:19 08/01/21 05:42 Labs: Laboratory Last Values WBC 7.4 K/mm3 (4.5-11.0) 07/30/21 04:19 RBC 3.93 M/mm3 (3.65-5.03) 07/30/21 04:19 Hgb 10.9 gm/dl (11.8-15.2) L 07/30/21 04:19 Hct 32.6 % (35.5-45.6) L 07/30/21 04:19 MCV 83 fl (84-94) L 07/30/21 04:19 MCH 28 pg (28-32) 07/30/21 04:19 MCHC 34 % (32-34) 07/30/21 04:19 RDW 16.2 % (13.2-15.2) H 07/30/21 04:19 Plt Count 324 K/mm3 (140-440) 07/30/21 04:19 Lymph # (Auto) Alterations Expert 07/25/21 Unknown Add Manual Diff Complete 07/26/21 03:50 Total Counted 100 07/26/21 03:50 Seg Neuts % (Manual) 96.0 % (40.0-70.0) H 07/26/21 03:50 Band Neutrophils % 0 % 07/26/21 03:50 Lymphocytes % (Manual) 3.0 % (13.4-35.0) L 07/26/21 03:50 Reactive Lymphs % (Man) 0 % 07/26/21 03:50 Monocytes % (Manual) 1.0 % (0.0-7.3) 07/26/21 03:50 Eosinophils % (Manual) 0 % (0.0-4.3) 07/26/21 03:50 Basophils % (Manual) 0 % (0.0-1.8) 07/26/21 03:50 Metamyelocytes % 0 % 07/26/21 03:50 Myelocytes % 0 % 07/26/21 03:50 Promyelocytes % 0 % 07/26/21 03:50 Blast Cells % 0 % 07/26/21 03:50 Nucleated RBC % Not Reportable 07/26/21 03:50 Seg Neutrophils # Man 14.9 K/mm3 (1.8-7.7) H 07/26/21 03:50 Band Neutrophils # 0.0 K/mm3 07/26/21 03:50 Lymphocytes # (Manual) 0.5 K/mm3 (1.2-5.4) L 07/26/21 03:50 Abs React Lymphs (Man) 0.0 K/mm3 07/26/21 03:50 Monocytes # (Manual) 0.2 K/mm3 (0.0-0.8) 07/26/21 03:50 Eosinophils # (Manual) 0.0 K/mm3 (0.0-0.4) 07/26/21 03:50 Basophils # (Manual) 0.0 K/mm3 (0.0-0.1) 07/26/21 03:50 Metamyelocytes # 0.0 K/mm3 07/26/21 03:50 Myelocytes # 0.0 K/mm3 07/26/21 03:50 Promyelocytes # 0.0 K/mm3 07/26/21 03:50 Blast Cells # 0.0 K/mm3 07/26/21 03:50 WBC Morphology Not Reportable 07/26/21 03:50 Hypersegmented Neuts Not Reportable 07/26/21 03:50 Hyposegmented Neuts Not Reportable 07/26/21 03:50 Hypogranular Neuts Not Reportable 07/26/21 03:50 Smudge Cells Not Reportable 07/26/21 03:50 Toxic Granulation Not Reportable 07/26/21 03:50 Toxic Vacuolation Not Reportable 07/26/21 03:50 Dohle Bodies Not Reportable 07/26/21 03:50 Pelger-Huet Anomaly Not Reportable 07/26/21 03:50 Mely Rods Not Reportable 07/26/21 03:50 Platelet Estimate Consistent w auto 07/26/21 03:50 Clumped Platelets Not Reportable 07/26/21 03:50 Plt Clumps, EDTA Not Reportable 07/26/21 03:50 Large Platelets Not Reportable 07/26/21 03:50 Giant Platelets Not Reportable 07/26/21 03:50 Platelet Satelliting Not Reportable 07/26/21 03:50 Plt Morphology Comment Not Reportable 07/26/21 03:50 RBC Morphology Not Reportable 07/26/21 03:50 Dimorphic RBCs Not Reportable 07/26/21 03:50 Polychromasia Not Reportable 07/26/21 03:50 Hypochromasia Not Reportable 07/26/21 03:50 Poikilocytosis Not Reportable 07/26/21 03:50 Anisocytosis 1+ 07/26/21 03:50 Microcytosis Not Reportable 07/26/21 03:50 Macrocytosis Not Reportable 07/26/21 03:50 Spherocytes Few 07/26/21 03:50 Pappenheimer Bodies Not Reportable 07/26/21 03:50 Sickle Cells Not Reportable 07/26/21 03:50 Target Cells Not Reportable 07/26/21 03:50 Tear Drop Cells Not Reportable 07/26/21 03:50 Ovalocytes Not Reportable 07/26/21 03:50 Helmet Cells Not Reportable 07/26/21 03:50 [place] Bodies Not Reportable 07/26/21 03:50 [place] Rings Not Reportable 07/26/21 03:50 [place] Cells Not Reportable 07/26/21 03:50 Bite Cells Not Reportable 07/26/21 03:50 Crenated Cell Not Reportable 07/26/21 03:50 Elliptocytes Not Reportable 07/26/21 03:50 Acanthocytes (Spur) Not Reportable 07/26/21 03:50 Rouleaux Not Reportable 07/26/21 03:50 Hemoglobin C Crystals Not Reportable 07/26/21 03:50 Schistocytes Not Reportable 07/26/21 03:50 Malaria parasites Not Reportable 07/26/21 03:50 Shaheen Bodies Not Reportable 07/26/21 03:50 Hem Pathologist Commnt No 07/26/21 03:50 ABG pH 7.449 pH Units (7.350-7.450) 07/29/21 20:45 ABG pCO2 51.3 mm Hg 07/29/21 20:45 ABG pO2 85.8 mm Hg (80.0-90.0) 07/29/21 20:45 ABG HCO3 34.7 mmol/L (20.0-26.0) H 07/29/21 20:45 ABG O2 Saturation 97.0 % (95.0-99.0) 07/29/21 20:45 ABG O2 Content 15.7 (0.0-44) 07/29/21 20:45 ABG Base Excess 9.3 mmol/L (-2.0-3.0) H 07/29/21 20:45 ABG Hemoglobin 11.7 gm/dl (14.0-18.0) L 07/29/21 20:45 ABG Carboxyhemoglobin 1.2 % (0.0-5.0) 07/29/21 20:45 ABG Methemoglobin 0.6 % (0.0-1.5) 07/29/21 20:45 Oxyhemoglobin 95.2 % (95.0-99.0) 07/29/21 20:45 FiO2 35 % 07/29/21 20:45 Sodium 141 mmol/L (137-145) 08/01/21 05:42 Potassium 4.7 mmol/L (3.6-5.0) 08/01/21 05:42 Chloride 99.7 mmol/L (98-107) 08/01/21 05:42 Carbon Dioxide 33 mmol/L (22-30) H 08/01/21 05:42 Anion Gap 13 mmol/L 08/01/21 05:42 BUN 29 mg/dL (9-20) H 08/01/21 05:42 Creatinine 2.0 mg/dL (0.8-1.3) H 08/01/21 05:42 Estimated GFR 34 ml/min 08/01/21 05:42 BUN/Creatinine Ratio 15 % 08/01/21 05:42 Glucose 106 mg/dL (75-100) H 08/01/21 05:42 POC Glucose 105 mg/dL (70-105) 08/01/21 05:37 Hemoglobin A1c 5.9 % (4-6) 07/26/21 03:50 Lactic Acid 4.90 mmol/L (0.7-2.0) H* 07/25/21 Unknown Calcium 9.9 mg/dL (8.4-10.2) 08/01/21 05:42 Total Bilirubin 0.20 mg/dL (0.1-1.2) 07/26/21 03:50 AST 19 units/L (5-40) 07/26/21 03:50 ALT 11 units/L (7-56) 07/26/21 03:50 Alkaline Phosphatase 73 units/L (35-129) 07/26/21 03:50 Troponin T < 0.010 ng/mL (0.00-0.029) 07/25/21 Unknown C-Reactive Protein 2.40 mg/dL (0.00-1.30) H 07/27/21 15:57 Total Protein 8.2 g/dL (6.3-8.2) 07/26/21 03:50 Albumin 3.7 g/dL (3.9-5) L 07/26/21 03:50 Albumin/Globulin Ratio 0.8 % 07/26/21 03:50 Procalcitonin 0.77 ng/mL (<0.15) 07/27/21 15:57 Urine Color Yellow (Yellow) 07/25/21 11:19 Urine Turbidity Cloudy (Clear) 07/25/21 11:19 Urine pH 6.0 (5.0-7.0) 07/25/21 11:19 Ur Specific [place] 1.015 (1.003-1.030) 07/25/21 11:19 Urine Protein >500 mg/dL (Negative) 07/25/21 11:19 Urine Glucose (UA) 150 mg/dL (Negative) 07/25/21 11:19 Urine Ketones Neg mg/dL (Negative) 07/25/21 11:19 Urine Blood Neg (Negative) 07/25/21 11:19 Urine Nitrite Neg (Negative) 07/25/21 11:19 Urine Bilirubin Neg (Negative) 07/25/21 11:19 Urine Urobilinogen < 2.0 mg/dL (<2.0) 07/25/21 11:19 Ur Leukocyte Esterase Neg (Negative) 07/25/21 11:19 Urine WBC (Auto) 26.0 /HPF (0.0-6.0) H 07/25/21 11:19 Urine RBC (Auto) 53.0 /HPF (0.0-6.0) 07/25/21 11:19 U Epithel Cells (Auto) 7.0 /HPF (0-13.0) 07/25/21 11:19 Urine Bacteria (Auto) 4+ /HPF (Negative) 07/25/21 11:19 Hyaline Casts 21 /LPF 07/25/21 11:19 Urine Mucus Few /HPF 07/25/21 11:19 Urine Yeast (Budding) 2+ /HPF 07/25/21 11:19 Urine Sperm 3+ /HPF (CHEMISTRY TECHNOLOGIST) 07/25/21 11:19 Urine Eosinophils None seen (None Seen) 07/27/21 17:45 Urine Creatinine 105.6 mg/dL (0.1-20.0) H 07/27/21 17:45 Urine Creatinine 106.0 mg/dL (0.1-20.0) H 07/27/21 17:45 Protein/Creatinin Ratio 0.28 07/27/21 17:45 Urine Sodium 46 mmol/L 07/27/21 17:45 Urine Total Protein 30 mg/dL (5-11.8) H 07/27/21 17:45 Nasal Screen MRSA (PCR) Positive (Negative) 07/26/21 16:30 Proteinase 3 (PR3) Ab <1.0 AI (<1.0) 07/27/21 18:17 Myeloperoxidase Ab <1.0 AI (<1.0) 07/27/21 18:17 Complement C3 149 mg/dL (82-185) 07/27/21 18:17 Coronavirus (PCR) Negative (Negative) 07/27/21 09:00 SARS-CoV-2 (PCR) Negative (Negative) 07/31/21 13:05 Hepatitis A IgM Ab Non-reactive (NonReactive) 07/27/21 18:17 Hep Bs Antigen Non-reactive (Negative) 07/27/21 18:17 Hep B Core IgM Ab Non-reactive (NonReactive) 07/27/21 18:17 Hepatitis C Antibody Non-reactive (NonReactive) 07/27/21 18:17 Good/IV: Voiding Method Indwelling Catheter Active Medications - Current Medications Current Medications: Generic Name Dose Route Start Last Admin Trade Name Freq PRN Reason Stop Dose Admin Acetaminophen 650 mg 07/25/21 16:00 Acetaminophen 325 Mg Tab PO Q4H PRN Pain MILD(1-3)/Fever >100.5/RAYO Albuterol/Ipratropium 1 ampul 07/26/21 16:00 08/01/21 07:43 Ipratropium/Albuterol Sulfate 3 Ml Ampul.Neb IH 1 ampul Q8HRT BLANCA Administration Amlodipine Besylate 10 mg 07/28/21 10:00 07/31/21 09:36 Amlodipine 5 Mg Tab FEEDTUBE 10 mg QDAY BLANCA Administration Lipase/Protease/Amylase 1 each 07/26/21 14:56 Lipase 10,500/Protease 25,000/Amylase 43,750 (Units) Dr Zambrano FEEDTUBE PRN PRN For Clogged Feeding Tube Dextrose 50 ml 07/26/21 12:22 Dextrose 50% In Water (25gm) 50 Ml Syringe IV Q30MIN PRN Hypoglycemia Protocol Famotidine 10 mg 07/27/21 10:00 08/01/21 11:31 Famotidine 10 Mg Tab FEEDTUBE 10 mg BID BLANCA Administration Heparin Sodium (Porcine) 5,000 unit 07/25/21 16:00 07/31/21 22:27 Heparin 5,000 Unit/1 Ml Vial SUB-Q 5,000 unit Q12HR BLANCA Administration Hydralazine HCl 25 mg 07/30/21 14:00 08/01/21 05:27 Hydralazine 25 Mg Tab PO 25 mg Q8HR BLANCA Administration Hydralazine HCl 15 mg 07/30/21 07:44 Hydralazine 20 Mg/1 Ml Inj IV Q6H PRN Blood Pressure Insulin Human Regular 0 units 07/26/21 12:00 08/01/21 05:26 Insulin Regular, Human 100 Units/1 Ml SUB-Q Not Given Q6HR BLANCA Protocol Labetalol HCl 100 mg 07/28/21 10:00 07/31/21 22:32 Labetalol 100 Mg Tab FEEDTUBE 100 mg BID BLANCA Administration Midazolam HCl 2 mg 07/30/21 14:34 Midazolam 2 Mg/2 Ml Inj IV 08/01/21 14:33 Q2H PRN Agitation Ondansetron HCl 4 mg 07/25/21 16:00 Ondansetron 4 Mg/2 Ml Inj IV Q8H PRN Nausea And Vomiting Oxycodone/Acetaminophen 1 tab 07/27/21 12:27 07/30/21 20:45 Oxycodone /Acetaminophen 5-325mg Tab PO 1 tab Q6H PRN Administration Pain, Moderate (4-6) Polyethylene Glycol 17 gm 07/26/21 17:04 Polyethylene Glycol 3350 17 Gm Powder PO QDAY PRN Constipation Senna/Docusate Sodium 1 tab 07/26/21 22:00 07/31/21 22:27 Sennosides/Docusate Sodium 8.6/50 Mg Tab PO 1 tab QHS BLANCA Administration Simple Syrup 15 ml 07/26/21 14:56 Simple Syrup 15 Ml FEEDTUBE PRN PRN Hypoglycemia Simple Syrup 30 ml 07/26/21 14:56 Simple Syrup 15 Ml FEEDTUBE PRN PRN Hypoglycemia Sodium Bicarbonate 325 mg 07/26/21 14:56 Sodium Bicarbonate 325 Mg Tab FEEDTUBE PRN PRN For Clogged Feeding Tube Sodium Chloride 10 ml 07/25/21 22:00 07/31/21 22:27 Sodium Chloride 0.9% 10 Ml Flush Syringe IV 10 ml BID BLANCA Administration Sodium Chloride 10 ml 07/25/21 16:00 07/26/21 00:08 Sodium Chloride 0.9% 10 Ml Flush Syringe IV 10 ml PRN PRN Administration LINE FLUSH Nutrition/Malnutrition Assess - Dietary Evaluation Nutrition/Malnutrition Findings: Nutrition Notes Start: 07/26/21 14:26 Freq: Status: Active Protocol: Document 07/31/21 14:46 BRIAN (Rec: 07/31/21 14:52 BRIAN [id number]) Nutrition Notes Initial or Follow up Reassessment Current Diagnosis Acute Kidney Injury,Diabetes, Hypertension,Respiratory Failure Other Pertinent Diagnosis Pneu Current Diet TF - Glucerna 1.2 at 55ml/hr Labs/Tests BUN 30 Cr 2.1 Pertinent Medications Reviewed Height 6 ft Weight 110 kg [place] Body Weight (kg) 80.90 BMI 32.8 Weight change and time frame Wt change noted Weight Status Obese Subjective/Other Information Pt now on T-piece with 35% FiO2. Per RN, he is tolerating TF at goal rate of 55ml/hr. Per nephrology note on yesterday, no need for dialysis at this time. Percent of energy/protein needs met: 68% energy 100% pro Burn Absent Trauma Absent #1 Nutrition Diagnosis Swallowing difficulty Diagnosis Progress(for reassessment Continues documentation) Is patient on ventilator? No Is Patient Ambulatory and/or Out of Bed No REE-([place]-St. Jeor-confined to bed) [phone] Calculation Used for Recommendations 65-70% REE Additional Notes Energy needs: 8831-3998 kcal/ day Pro needs 0.8-1.2g/kg adjBW: 76-115g/day Fluid needs 1ml/kcal Nutrition Intervention Nutrition Support: Continue Glucerna 1.2 at 55ml/ hr with 85ml water flush q4h. Kcal 1,584 Protein (gm) 79 Carbohydrates (gm) 151 Fat (gm) 79 Fluid (mL) 1,063 Fiber (gm) 21 Goal #1 TF tolerance Goal #2 TF to meet 65-70% energy and at least 75% pro needs Follow-Up By: 08/07/21 Additional Comments F/U: stable TF, wt, renal function
--- NOTE | 2021-08-01 13:11 | Progress Note ---
Assessment and Plan Cultures: 07/25/2021 urine culture: No growth 07/25/2021 blood culture: No growth 07/27/2021 sputum culture: Usual respiratory marlyn MRSA nasal PCR: Positive A/P: 61 year old male from a SNF with chronic hypoxic resp failure s/p trach, recent COVID 19 infection, ischemic cardiomyopathy IDDM, obesity admitted with acute on chronic resp failure, HAP, hyperkalemia, and lactic acidosis: #Acute on chronic respiratory failure: improving bilateral opacities from previous when he completed 2 weeks of high-dose cefazolin due to his weight. Leukocytosis has resolved. No fever. #Diabetes: tight glycemic control for best outcomes. #MONIK: Renally dose medications. Recs: -stable off antibiotics Will sign off. Sangita Nicole MD, FACP, [facility] ([facility] O: [phone] F: [phone] C: [phone] Subjective Date of service: 08/01/21 Principal diagnosis: Ac and ch hypoxemic and hypercapnic Resp Failure; HCAP; AE- CHF; s/p Trach Interval history: Awake, alert, sitting in a chair, denies any complaints. Remains off antibiotics. No fever. Answering questions. Objective - Exam Narrative Exam: Physical Exam: Constitutional: Alert, no distress, trach present Head, Ears, Nose: Normocephalic, atraumatic. External ears, nose normal Eyes: Conjunctivae/corneas clear. No icterus. No ptosis. Neck: Trach + Cardiovascular: S1, S2 + Respiratory: Good air entry, clear to auscultation bilaterally GI: Soft, non-tender; bowel sounds normal. No peritoneal signs. G-tube + Musculoskeletal: No pedal edema, no cyanosis. Skin: No rash or abscess Hem/Lymphatic: No palpable cervical or supraclavicular nodes. No lymphangitis Psych: Mood ok. Affect normal Neurological: Awake, responsive, answering questions, able to talk with his trach - Constitutional Vitals: Vital Signs Temp Pulse Resp BP Pulse Ox 98.4 F 87 20 147/85 100 08/01/21 11:27 08/01/21 11:27 08/01/21 11:27 08/01/21 11:32 08/01/21 11:27 Temperature -Last 24 Hours Temperature 98.4 F Temperature 98.3 F Temperature 97.5 F Temperature 97.8 F Temperature 98.4 F - Labs CBC & Chem 7: 07/30/21 04:19 08/01/21 05:42 Labs: Abnormal lab results 07/31/21 08/01/21 08/01/21 Range/Units 23:23 05:42 11:49 Carbon Dioxide 33 H (22-30) mmol/L BUN 29 H (9-20) mg/dL Creatinine 2.0 H (0.8-1.3) mg/dL Glucose 106 H (75-100) mg/dL POC Glucose 116 H 111 H (70-105) mg/dL
[2021-08-01 18:05] LABS: Gamma Globulin 1.5 g/dL (0.8-1.7)
[2021-08-01] MEDS: oxyCODONE /ACETAMINOPHEN 5-325MG TAB PO PRN (18:54)
[2021-08-01] MEDS: SENNOSIDES/DOCUSATE SODIUM 8.6/50 MG TAB PO SCH (22:13)
[2021-08-02] MEDS: INSULIN REGULAR, HUMAN 100 UNITS/1 ML SUB-Q SCH ×4 (00:13→19:07)
[2021-08-02] MEDS: IPRATROPIUM/ALBUTEROL SULFATE 3 ML AMPUL.NEB IH SCH ×3 (01:00→15:45)
[2021-08-02] MEDS: hydrALAZINE 25 MG TAB PO SCH ×3 (05:28→22:18)
[2021-08-02 06:35] LABS: ANA Screen, IFA Negative (Negative)
--- NOTE | 2021-08-02 08:21 | Progress Note ---
Subjective Principal diagnosis: Ac and ch hypoxemic and hypercapnic Resp Failure; HCAP; AE- CHF; s/p Trach Interval history: Assessment and plan #Acute kidney injury in a patient who most likely has acute tubular necrosis resulting from hypoxic variety of respiratory failure, with underlying diagnosis of COVID-19, at risk for cardiorenal injury, as of today, patient renal function appears to be stable creatinine is 2.0 which was 2.1 on July 29, no evidence of any electrolyte disturbances, carbon dioxide 33, #Blood pressure appears to be satisfactorily controlled Renal ultrasonogram obtained July 27 shows bilateral echogenic kidneys hence underlying stage kidney disease possibly stage IV given that the GFR is in that range, Protein creatinine ratio around 300 mg Overall prognosis long-term guarded to poor If there are any renal related issues in regards to this patient please feel free to reach out without any hesitation at [phone] We'll continue to follow and make recommendation for renal standpoint. Progress note by: Florian Pineda MD [address] [place] [id number] Tele [phone] [email or web address] Patient was seen today for follow-up of multiple renal related issues Interdisciplinary notes that also reviewed Events of 24 hours vitals labs intake output medications were reviewed Past medical history: Reviewed Family history: Reviewed Social history: Reviewed Allergies: Reviewed Physical examination: Vitals: Reviewed HEENT: No pallor or icterus oral mucosa moist Neck: Supple no JVD no thyromegaly Chest: Bilateral clear to auscultation anteriorly Heart: Regular rate and rhythm S1-S2 heard no S3-S4 Abdomen: Soft nontender no voluntary guarding rigidity rebound Extremity: Dry skin less than 1+ peripheral edema Psychiatric: No evidence of agitation and aggression noted Dermatology: No petechial rashes Labs and x-rays: Reviewed from today Objective - Vital Signs Vital signs: Vital Signs - 12hr 08/01/21 08/01/21 08/01/21 20:54 22:00 22:26 Temperature 97.8 F Pulse Rate 78 Pulse Rate [ Bilateral Throughout] Respiratory 20 20 Rate Respiratory Rate [Bilateral Throughout] Blood Pressure 161/83 O2 Sat by Pulse 99 98 100 Oximetry O2 Sat by Pulse Oximetry [ Assessment] 08/02/21 08/02/21 08/02/21 01:00 01:30 05:30 Temperature 98.3 F Pulse Rate 78 Pulse Rate [ 92 H Bilateral Throughout] Respiratory 20 Rate Respiratory 20 Rate [Bilateral Throughout] Blood Pressure 135/72 O2 Sat by Pulse 98 Oximetry O2 Sat by Pulse 98 Oximetry [ Assessment] - Lab 07/30/21 04:19 08/01/21 05:42 Most recent lab results ABG pH 7.449 pH Units (7.350-7.450) 07/29/21 20:45 ABG pCO2 51.3 mm Hg 07/29/21 20:45 ABG pO2 85.8 mm Hg (80.0-90.0) 07/29/21 20:45 ABG HCO3 34.7 mmol/L (20.0-26.0) H 07/29/21 20:45 ABG O2 Saturation 97.0 % (95.0-99.0) 07/29/21 20:45 Calcium 9.9 mg/dL (8.4-10.2) 08/01/21 05:42 Urine Creatinine 105.6 mg/dL (0.1-20.0) H 07/27/21 17:45 Urine Creatinine 106.0 mg/dL (0.1-20.0) H 07/27/21 17:45 Urine Sodium 46 mmol/L 07/27/21 17:45 Urine Total Protein 30 mg/dL (5-11.8) H 07/27/21 17:45 Medications & Allergies - Medications Allergies/Adverse Reactions: Allergies No Known Allergies Allergy (Verified 07/25/21 11:02) Home Medications: Home Medications Medication Instructions Recorded Confirmed Last Taken Type No Known Home Medications [No 03/11/21 08/02/21 Unknown History Reported Home Medications] Apixaban [Eliquis] 5 mg FEEDTUBE Q12HR 30 Days #60 05/02/21 08/02/21 Unknown Rx tablet Doxazosin [Cardura] 1 mg FEEDTUBE BID 30 Days #60 05/02/21 08/02/21 Unknown Rx tablet Famotidine [Pepcid] 20 mg FEEDTUBE BID 30 Days #60 05/02/21 08/02/21 Unknown Rx tablet Glycopyrrolate 2 mg PO TID 30 Days #90 tablet 05/02/21 08/02/21 Unknown Rx Insulin Glargine [Lantus VIAL] 18 units SUB-Q QHS 30 Days #2 vial 05/02/21 08/02/21 Unknown Rx Metoprolol [Lopressor TAB] 12.5 mg FEEDTUBE BID 30 Days #60 05/02/21 08/02/21 Unknown Rx tablet amLODIPine 10 mg FEEDTUBE DAILY 30 Days #30 05/02/21 08/02/21 Unknown Rx tablet cephALEXin [Keflex] 500 mg PO Q8HR 2 Days #6 cap 05/02/21 08/02/21 Unknown Rx hydrALAZINE [Apresoline TAB] 50 mg FEEDTUBE Q8HR 30 Days #90 05/02/21 08/02/21 Unknown Rx tablet Active Medications: Generic Name Dose Route Start Last Admin Trade Name Freq PRN Reason Stop Dose Admin Acetaminophen 650 mg 07/25/21 16:00 Acetaminophen 325 Mg Tab PO Q4H PRN Pain MILD(1-3)/Fever >100.5/RAYO Albuterol/Ipratropium 1 ampul 07/26/21 16:00 08/02/21 01:00 Ipratropium/Albuterol Sulfate 3 Ml Ampul.Neb IH 1 ampul Q8HRT BLANCA Administration Amlodipine Besylate 10 mg 07/28/21 10:00 08/01/21 11:32 Amlodipine 5 Mg Tab FEEDTUBE 10 mg QDAY BLANCA Administration Lipase/Protease/Amylase 1 each 07/26/21 14:56 Lipase 10,500/Protease 25,000/Amylase 43,750 (Units) Dr Zambrano FEEDTUBE PRN PRN For Clogged Feeding Tube Dextrose 50 ml 07/26/21 12:22 Dextrose 50% In Water (25gm) 50 Ml Syringe IV Q30MIN PRN Hypoglycemia Protocol Famotidine 10 mg 07/27/21 10:00 08/01/21 22:13 Famotidine 10 Mg Tab FEEDTUBE 10 mg BID BLANCA Administration Heparin Sodium (Porcine) 5,000 unit 07/25/21 16:00 08/01/21 22:12 Heparin 5,000 Unit/1 Ml Vial SUB-Q 5,000 unit Q12HR BLANCA Administration Hydralazine HCl 25 mg 07/30/21 14:00 08/02/21 05:28 Hydralazine 25 Mg Tab PO 25 mg Q8HR BLANCA Administration Hydralazine HCl 15 mg 07/30/21 07:44 Hydralazine 20 Mg/1 Ml Inj IV Q6H PRN Blood Pressure Insulin Human Regular 0 units 07/26/21 12:00 08/02/21 05:28 Insulin Regular, Human 100 Units/1 Ml SUB-Q Not Given Q6HR [facility] Protocol Labetalol HCl 100 mg 07/28/21 10:00 08/01/21 22:13 Labetalol 100 Mg Tab FEEDTUBE 100 mg BID BLANCA Administration Ondansetron HCl 4 mg 07/25/21 16:00 Ondansetron 4 Mg/2 Ml Inj IV Q8H PRN Nausea And Vomiting Oxycodone/Acetaminophen 1 tab 07/27/21 12:27 08/01/21 18:54 Oxycodone /Acetaminophen 5-325mg Tab PO 1 tab Q6H PRN Administration Pain, Moderate (4-6) Polyethylene Glycol 17 gm 07/26/21 17:04 Polyethylene Glycol 3350 17 Gm Powder PO QDAY PRN Constipation Senna/Docusate Sodium 1 tab 07/26/21 22:00 08/01/21 22:13 Sennosides/Docusate Sodium 8.6/50 Mg Tab PO 1 tab QHS BLANCA Administration Simple Syrup 15 ml 07/26/21 14:56 Simple Syrup 15 Ml FEEDTUBE PRN PRN Hypoglycemia Simple Syrup 30 ml 07/26/21 14:56 Simple Syrup 15 Ml FEEDTUBE PRN PRN Hypoglycemia Sodium Bicarbonate 325 mg 07/26/21 14:56 Sodium Bicarbonate 325 Mg Tab FEEDTUBE PRN PRN For Clogged Feeding Tube Sodium Chloride 10 ml 07/25/21 22:00 08/01/21 22:13 Sodium Chloride 0.9% 10 Ml Flush Syringe IV 10 ml BID BLANCA Administration Sodium Chloride 10 ml 07/25/21 16:00 07/26/21 00:08 Sodium Chloride 0.9% 10 Ml Flush Syringe IV 10 ml PRN PRN Administration LINE FLUSH
[2021-08-02] MEDS: HEPARIN 5,000 UNIT/1 ML VIAL SUB-Q SCH ×2 (09:40→22:17)
[2021-08-02] MEDS: FAMOTIDINE 10 MG TAB FEEDTUBE SCH ×2 (09:42→22:19)
[2021-08-02] MEDS: amLODIPine 5 MG TAB FEEDTUBE SCH (09:45)
--- NOTE | 2021-08-02 11:22 | Progress Note ---
Assessment and Plan Acute and chronic hypoxemic and hypercapnic Respiratory Failure 2/2 HCAP on MVS HCAP AE-CHF exacerbation s/p Tracheostomy Oropharyngeal dysphagia s/p PEG h/o Ischemic cardiomyopathy - continue PMV trials as tolerated - continue ATP RTC as tolerated - discharge planning ok pulmonary-vu - continue care as below otherwise; - complete AB's per ID rec's (Cefepime) - continue contact isolation re: MRSA - continue to wean supplemental oxygen for target O2 sat's > 90% acutely - aspiration precautions - continue lung protective strategies - continue bronchodilators with pulmonary hygiene per RT - wean per pulmonary driven protocols otherwise - continue accuchecks with glycemic control per SSI for target blood glucose of < 180 mg/dL; avoid hypoglycemia - sedation prn for target RASS 0 to -1 - avoid nephrotoxins, renally dose all medications - continue to avoid benzodiazepine's, reduce the possibility of delirium - prn analgesia per pain score - Maintenance of sleep-wake cycle, avoid delirium - continue enteral nutritional support at goal rate as tolerated - G.I. & VTE prophylaxis - PT/OT/ROM exercises - continue mobility protocols for pressure ulcer prophylaxis - Monitor hemodynamics closely - continue other care per attending / other consultants - discharge planning ongoing concurrently COVID SPECIFIC INTERVENTIONS - COVID-19 PCR negative .... Re-evaluate in am & prn Subjective Date of service: 08/02/21 Principal diagnosis: Ac and ch hypoxemic and hypercapnic Resp Failure; HCAP; AE- CHF; s/p Trach Interval history: Patient is seen today for: Acute and chronic hypoxemic and hypercapnic Respiratory Failure; HCAP; AE-CHF; s/p Tracheostomy; H/O Ischemic cardiomyopathy Seen and examined at bedside; 24hour events reviewed; nursing and respiratory care staff consulted; no adverse overnight events reported to me; resting peacefully in bed; Objective Vital Signs - 12hr 08/02/21 08/02/21 08/02/21 01:00 01:30 05:30 Temperature 98.3 F Pulse Rate 78 Pulse Rate [ 92 H Bilateral Throughout] Respiratory 20 Rate Respiratory 20 Rate [Bilateral Throughout] Blood Pressure 135/72 O2 Sat by Pulse 98 Oximetry O2 Sat by Pulse 98 Oximetry [ Assessment] 08/02/21 08/02/21 08:47 09:45 Temperature Pulse Rate 96 H Pulse Rate [ Bilateral Throughout] Respiratory 20 Rate Respiratory Rate [Bilateral Throughout] Blood Pressure 132/71 O2 Sat by Pulse 99 Oximetry O2 Sat by Pulse Oximetry [ Assessment] Constitutional: no acute distress, other (atraumatic, normocephalic, trach to ATP) Eyes: non-icteric ENT: oropharynx moist, other (midline tracheostomy) Neck: supple, no lymphadenopathy, no JVD Effort: normal Ascultation: Bilateral: diminished breath sounds, wheezes, rhonchi (scant) Percussion: Bilateral: not dull Cardiovascular: regular rate and rhythm, other (S1,S2) Gastrointestinal: normoactive bowel sounds, soft, non-tender, non-distended (protuberant), other (PEG) Integumentary: normal Extremities: no cyanosis, pulses normal, no ischemia or petechiae, edema Neurologic: non-focal exam (grossly), pupils equal and round, CN II-XII normal, motor strength normal and, other (moves all extremities) Psychiatric: mood appropriate, affect normal CBC and BMP: 07/30/21 04:19 08/01/21 05:42 ABG, PT/INR, D-dimer: ABG ABG pH 7.449 pH Units (7.350-7.450) 07/29/21 20:45 ABG pCO2 51.3 mm Hg 07/29/21 20:45 ABG pO2 85.8 mm Hg (80.0-90.0) 07/29/21 20:45 ABG O2 Saturation 97.0 % (95.0-99.0) 07/29/21 20:45 Abnormal lab findings: Abnormal Labs 07/25/21 07/25/21 07/25/21 11:19 21:50 Unknown WBC 18.1 H Hgb Hct MCV MCH RDW 16.2 H Seg Neuts % (Manual) Lymphocytes % (Manual) Seg Neutrophils # Man 12.1 H Lymphocytes # (Manual) ABG pH 6.917 L* ABG pO2 331.8 H ABG HCO3 39.3 H ABG O2 Saturation 99.4 H ABG Base Excess ABG Hemoglobin 12.1 L Oxyhemoglobin Sodium Potassium Chloride Carbon Dioxide BUN Creatinine Glucose POC Glucose Lactic Acid C-Reactive Protein Albumin Xnhpq-7-Fxednwvdz PEP Interpretation Urine WBC (Auto) 26.0 H Urine Creatinine Urine Total Protein 07/25/21 07/25/21 07/25/21 Unknown Unknown Unknown WBC Hgb Hct MCV MCH RDW Seg Neuts % (Manual) Lymphocytes % (Manual) Seg Neutrophils # Man Lymphocytes # (Manual) ABG pH 7.029 L* ABG pO2 97.5 H ABG HCO3 37.2 H ABG O2 Saturation 93.5 L ABG Base Excess ABG Hemoglobin 12.7 L Oxyhemoglobin 91.7 L Sodium 129 L Potassium Chloride 90.1 L Carbon Dioxide BUN 8 L Creatinine Glucose 258 H POC Glucose Lactic Acid 4.90 H* C-Reactive Protein Albumin 3.8 L Nvvud-5-Lfiybpmvk PEP Interpretation Urine WBC (Auto) Urine Creatinine Urine Total Protein 07/25/21 07/26/21 07/26/21 Unknown 00:10 03:50 WBC 15.5 H Hgb Hct MCV MCH RDW 15.4 H Seg Neuts % (Manual) 96.0 H Lymphocytes % (Manual) 3.0 L Seg Neutrophils # Man 14.9 H Lymphocytes # (Manual) 0.5 L ABG pH 7.217 L ABG pO2 162.9 H ABG HCO3 34.3 H ABG O2 Saturation ABG Base Excess 4.0 H ABG Hemoglobin 12.5 L Oxyhemoglobin Sodium Potassium Chloride Carbon Dioxide BUN Creatinine Glucose POC Glucose 158 H Lactic Acid C-Reactive Protein Albumin Sbnao-9-Ealirgjnl PEP Interpretation Urine WBC (Auto) Urine Creatinine Urine Total Protein 07/26/21 07/26/21 07/26/21 03:50 04:30 07:44 WBC Hgb Hct MCV MCH RDW Seg Neuts % (Manual) Lymphocytes % (Manual) Seg Neutrophils # Man Lymphocytes # (Manual) ABG pH 7.170 L* ABG pO2 65.5 L ABG HCO3 33.9 H ABG O2 Saturation ABG Base Excess ABG Hemoglobin 12.0 L Oxyhemoglobin 93.5 L Sodium 132 L Potassium 6.0 H D 5.6 H Chloride 93.2 L Carbon Dioxide BUN Creatinine Glucose 171 H POC Glucose Lactic Acid C-Reactive Protein Albumin 3.7 L Oegow-4-Cqcijblie PEP Interpretation Urine WBC (Auto) Urine Creatinine Urine Total Protein 07/26/21 07/26/21 07/27/21 12:34 17:18 04:54 WBC 11.9 H Hgb 11.1 L Hct 34.5 L MCV MCH 27 L RDW 15.5 H Seg Neuts % (Manual) Lymphocytes % (Manual) Seg Neutrophils # Man Lymphocytes # (Manual) ABG pH 7.286 L ABG pO2 100.0 H ABG HCO3 31.4 H ABG O2 Saturation ABG Base Excess 3.2 H ABG Hemoglobin 11.8 L Oxyhemoglobin Sodium Potassium Chloride Carbon Dioxide BUN Creatinine Glucose POC Glucose 111 H Lactic Acid C-Reactive Protein Albumin Vysib-3-Jglaqsxbz PEP Interpretation Urine WBC (Auto) Urine Creatinine Urine Total Protein 07/27/21 07/27/21 07/27/21 04:54 10:30 15:57 WBC Hgb Hct MCV MCH RDW Seg Neuts % (Manual) Lymphocytes % (Manual) Seg Neutrophils # Man Lymphocytes # (Manual) ABG pH ABG pO2 76.9 L ABG HCO3 30.2 H ABG O2 Saturation ABG Base Excess 3.9 H ABG Hemoglobin 11.2 L Oxyhemoglobin Sodium 136 L Potassium Chloride Carbon Dioxide BUN 37 H Creatinine 2.2 H D Glucose POC Glucose Lactic Acid C-Reactive Protein 2.40 H Albumin Nllro-9-Gtkvotuyp PEP Interpretation Urine WBC (Auto) Urine Creatinine Urine Total Protein 07/27/21 07/27/21 07/27/21 17:45 17:45 17:52 WBC Hgb Hct MCV MCH RDW Seg Neuts % (Manual) Lymphocytes % (Manual) Seg Neutrophils # Man Lymphocytes # (Manual) ABG pH ABG pO2 ABG HCO3 ABG O2 Saturation ABG Base Excess ABG Hemoglobin Oxyhemoglobin Sodium Potassium Chloride Carbon Dioxide BUN Creatinine Glucose POC Glucose 114 H Lactic Acid C-Reactive Protein Albumin Yfuil-7-Gcjrgyuab PEP Interpretation Urine WBC (Auto) Urine Creatinine 106.0 H 105.6 H Urine Total Protein 30 H 07/28/21 07/28/21 07/28/21 04:32 04:32 04:32 WBC Hgb 11.0 L Hct 34.4 L MCV MCH 27 L RDW 16.0 H Seg Neuts % (Manual) Lymphocytes % (Manual) Seg Neutrophils # Man Lymphocytes # (Manual) ABG pH ABG pO2 ABG HCO3 ABG O2 Saturation ABG Base Excess ABG Hemoglobin Oxyhemoglobin Sodium 135 L Potassium Chloride Carbon Dioxide BUN 40 H Creatinine 2.3 H Glucose 124 H POC Glucose Lactic Acid C-Reactive Protein Albumin 3.0 L Rnftd-4-Yghdoovpk 0.4 H PEP Interpretation see below H Urine WBC (Auto) Urine Creatinine Urine Total Protein 07/28/21 07/28/21 07/28/21 11:19 13:12 17:34 WBC Hgb Hct MCV MCH RDW Seg Neuts % (Manual) Lymphocytes % (Manual) Seg Neutrophils # Man Lymphocytes # (Manual) ABG pH ABG pO2 103.7 H ABG HCO3 32.7 H ABG O2 Saturation ABG Base Excess 7.1 H ABG Hemoglobin 10.8 L Oxyhemoglobin Sodium Potassium Chloride Carbon Dioxide BUN Creatinine Glucose POC Glucose 117 H 124 H Lactic Acid C-Reactive Protein Albumin Ojwpm-2-Apwtmfths PEP Interpretation Urine WBC (Auto) Urine Creatinine Urine Total Protein 07/28/21 07/29/21 07/29/21 23:54 05:09 05:39 WBC Hgb Hct MCV MCH RDW Seg Neuts % (Manual) Lymphocytes % (Manual) Seg Neutrophils # Man Lymphocytes # (Manual) ABG pH ABG pO2 ABG HCO3 ABG O2 Saturation ABG Base Excess ABG Hemoglobin Oxyhemoglobin Sodium Potassium Chloride Carbon Dioxide 32 H BUN 34 H Creatinine 2.1 H Glucose 124 H POC Glucose 107 H 120 H Lactic Acid C-Reactive Protein Albumin Tqqhj-3-Uoflxzelq PEP Interpretation Urine WBC (Auto) Urine Creatinine Urine Total Protein 07/29/21 07/29/21 07/29/21 09:00 20:45 23:15 WBC Hgb Hct MCV MCH RDW Seg Neuts % (Manual) Lymphocytes % (Manual) Seg Neutrophils # Man Lymphocytes # (Manual) ABG pH ABG pO2 131.5 H ABG HCO3 35.1 H 34.7 H ABG O2 Saturation ABG Base Excess 9.1 H 9.3 H ABG Hemoglobin 11.8 L 11.7 L Oxyhemoglobin Sodium Potassium Chloride Carbon Dioxide BUN Creatinine Glucose POC Glucose 114 H Lactic Acid C-Reactive Protein Albumin Kmruc-6-Gbslnshxi PEP Interpretation Urine WBC (Auto) Urine Creatinine Urine Total Protein 07/30/21 07/30/21 07/30/21 04:19 04:19 05:25 WBC Hgb 10.9 L Hct 32.6 L MCV 83 L MCH RDW 16.2 H Seg Neuts % (Manual) Lymphocytes % (Manual) Seg Neutrophils # Man Lymphocytes # (Manual) ABG pH ABG pO2 ABG HCO3 ABG O2 Saturation ABG Base Excess ABG Hemoglobin Oxyhemoglobin Sodium Potassium Chloride Carbon Dioxide 33 H BUN 32 H Creatinine 2.2 H Glucose 108 H POC Glucose 109 H Lactic Acid C-Reactive Protein Albumin Uwbef-0-Jgrrbtapj PEP Interpretation Urine WBC (Auto) Urine Creatinine Urine Total Protein 07/31/21 07/31/21 07/31/21 04:26 05:35 23:23 WBC Hgb Hct MCV MCH RDW Seg Neuts % (Manual) Lymphocytes % (Manual) Seg Neutrophils # Man Lymphocytes # (Manual) ABG pH ABG pO2 ABG HCO3 ABG O2 Saturation ABG Base Excess ABG Hemoglobin Oxyhemoglobin Sodium Potassium Chloride Carbon Dioxide 32 H BUN 30 H Creatinine 2.1 H Glucose 108 H POC Glucose 124 H 116 H Lactic Acid C-Reactive Protein Albumin Jmgoc-0-Sctyttntn PEP Interpretation Urine WBC (Auto) Urine Creatinine Urine Total Protein 08/01/21 08/01/21 08/01/21 05:42 11:49 16:42 WBC Hgb Hct MCV MCH RDW Seg Neuts % (Manual) Lymphocytes % (Manual) Seg Neutrophils # Man Lymphocytes # (Manual) ABG pH ABG pO2 ABG HCO3 ABG O2 Saturation ABG Base Excess ABG Hemoglobin Oxyhemoglobin Sodium Potassium Chloride Carbon Dioxide 33 H BUN 29 H Creatinine 2.0 H Glucose 106 H POC Glucose 111 H 65 L Lactic Acid C-Reactive Protein Albumin Hptez-9-Knyjhmmdb PEP Interpretation Urine WBC (Auto) Urine Creatinine Urine Total Protein Allied health notes reviewed: nursing
[2021-08-02] MEDS: SENNOSIDES/DOCUSATE SODIUM 8.6/50 MG TAB PO SCH (22:18)
[2021-08-03] MEDS: INSULIN REGULAR, HUMAN 100 UNITS/1 ML SUB-Q SCH ×4 (00:29→17:00)
[2021-08-03] MEDS: IPRATROPIUM/ALBUTEROL SULFATE 3 ML AMPUL.NEB IH SCH ×4 (01:39→21:01)
[2021-08-03] MEDS: hydrALAZINE 25 MG TAB PO SCH ×3 (05:57→21:44)
--- NOTE | 2021-08-03 07:18 | Progress Note ---
Assessment and Plan Assessment and plan: This is a 61 year old male from a SNF with chronic hypoxic resp failure s/p trach, recent COVID 19 infection, ischemic cardiomyopathy IDDM, obesity admitted with acute on chronic resp failure, HAP, hyperkalemia, and lactic acidosis. Neuro: NAD -p.o. oxycodone prn -Reorientation as needed -Maintain sleep-wake cycle -CT head continued mild microvascular angiopathy without clear CT evidence of acute intercranial hemorrhage Cardiac: h/o HTN -Cardiology consulted, appreciate recommendations -Blood pressure monitoring per protocol -03/09/21 Echocardiogram LVEF 60-65% -Amlodipine, Labetalol, hydralazine PO (titrate as tolerated) -Avoid ACEi or ARB in setting of MONIK Respiratory: Acute on chronic hypercapnic respiratory failure, s/p trach -CCM consulted, appreciate recommendations -T piece 35 % Fio2 -See RT notes for titration -Pulm hygiene -SPO2 monitoring GI: MO, moderate protein calorie malnutrition -24 hours + 398 mL -PPI -NTR consulted for tube feedings -s/p PEG tube in place -BR: Jonas Paez : Acute kidney injury (improving), h/o urinary retention -Nephrology consulted, appreciate recommendations -Renal ultrasound shows echogenic kidneys which can be seen with medical renal disease, no hydronephrosis -FeNa indicate prerenal -Monitor intake and output -Renally dose medications -Avoid nephrotoxic medications -Good catheter placed for urinary retention -Trend BMP ID: HAP (POA) -Infectious disease consulted, appreciate recommendations -COVID PCR (-) -MRSA PCR positive -07/25 BC x2 NGTD, UC NGTD -Antibiotic therapy with cefepime -f/u blood culture -Monitor WBC and temperature curve Endo: h/o DM -Avoid hypoglycemia -SSI -Accu-Cheks q. 6 Heme: Leukocytosis -Heparin subq -Trend CBC -Transfuse hemoglobin less than 7 -Monitor for signs of bleeding -SCDs to BLE while in bed Subjective Date of service: 08/02/21 Principal diagnosis: Ac and ch hypoxemic and hypercapnic Resp Failure; HCAP; AE-CHF; s/p Trach Interval history: This is a 61-year-old male who is a resident of a detention facility with chronic hypoxic respiratory failure s/p trach with vent dependency, recent COVID-19 infection, ischemic cardiomyopathy, type 2 diabetes mellitus, obesity who presented to the emergency department on 07/25 via EMS with chief complaints of respiratory distress from his fpc. In the emergency department patient was placed on the ventilator as he was tachypneic, dyspneic and did not improve after suctioning. Work-up in the emergency department revealed lactic acidosis, leukocytosis and CXR revealed possible retrocardiac pneumonia and started on antibiotics for HAP. Patient was admitted to the hospitalist service with consults to [facility] with acute on chronic respiratory failure and HAP. Hospital course to date: 07/26: Stopped Solu-Medrol, given For hyperkalemia, started on tube feedings. Remains on fentanyl and Mucomyst 07/27: Renal indices increased, patient did receive Lasix x1 yesterday. Nephrology was consulted. Urine lites and bilateral renal ultrasound pending. Infectious disease consulted. Bladder scan performed and Good catheter placed. COVID 19 PCR negative 07/28: No acute events reported overnight, worsening renal function-nephrology is on the case. Continue with cefepime per ID. Vent changes per [facility]. 07/29: Slight improvement to renal function tests, remains on assist control. No acute events reported overnight. 07/30: Patient has been on T-piece all night. Renal function continues slightly worse however patient is still creating urine. Possible transfer to floor or imcu. Per pt he is requesting transfer to another fpc if needed on discharge. 07/31: IMCU currently. Resting comfortably. no complaints. ST/PT eval. Working with CM for placement back to LTAC. ID okay with discontinuing antibiotics. Discussed patient case with pulmonology as well Dr. Azul 08/01: Patient still requiring 8 L of O2 via T-piece. Case management working for possible placement at LTAC. ID discontinue antibiotics. Continue PMV trials as tolerated. 08/02/2021 Patient still requiring high flow oxygen Objective - Constitutional Vitals: Vital Signs - 12hr 08/02/21 08/02/21 08/02/21 21:00 22:16 22:18 Temperature 98.4 F Pulse Rate 87 87 Pulse Rate [ Bilateral Throughout] Respiratory 18 Rate Respiratory Rate [Bilateral Throughout] Blood Pressure 143/81 Blood Pressure 143/81 [Left] O2 Sat by Pulse 98 99 Oximetry O2 Sat by Pulse Oximetry [ Assessment] 08/03/21 08/03/21 08/03/21 00:00 02:03 02:05 Temperature Pulse Rate 87 Pulse Rate [ 106 H Bilateral Throughout] Respiratory Rate Respiratory 20 Rate [Bilateral Throughout] Blood Pressure Blood Pressure [Left] O2 Sat by Pulse 99 Oximetry O2 Sat by Pulse 98 Oximetry [ Assessment] 08/03/21 08/03/21 05:42 05:57 Temperature 98.6 F Pulse Rate 86 86 Pulse Rate [ Bilateral Throughout] Respiratory 22 Rate Respiratory Rate [Bilateral Throughout] Blood Pressure 132/70 132/76 Blood Pressure [Left] O2 Sat by Pulse 99 Oximetry O2 Sat by Pulse Oximetry [ Assessment] General appearance: Present: mild distress, well-nourished - EENT Eyes: PERRL, EOM intact ENT: hearing intact, clear oral mucosa Ears: bilateral: normal - Neck Neck: supple, normal ROM - Respiratory Respiratory effort: normal Respiratory: bilateral: CTA, rhonchi, wheezing - Breasts Breasts: normal - Cardiovascular Heart rate: 98 Rhythm: regular Heart Sounds: Present: S1 & S2. Absent: gallop, rub Extremities: pulses intact, No edema, normal color, Full ROM - Gastrointestinal General gastrointestinal: Present: soft, non-tender, non-distended, normal bowel sounds - Genitourinary Male genitourinary: normal - Integumentary Integumentary: clear, warm, dry - Musculoskeletal Musculoskeletal: 1, strength equal bilaterally - Neurologic Neurologic: moves all extremities - Psychiatric Psychiatric: memory intact, appropriate mood/affect, intact judgment & insight - Allied health notes Allied health notes reviewed: nursing, case management - Labs CBC & Chem 7: 07/30/21 04:19 08/01/21 05:42 Labs: Abnormal lab results 08/03/21 Range/Units 00:07 POC Glucose 111 H (70-105) mg/dL HEART Score - HEART Score Troponin: Troponin T < 0.010 ng/mL (0.00-0.029) 07/25/21 Unknown
--- NOTE | 2021-08-03 07:19 | Progress Note ---
Assessment and Plan Acute and chronic Respiratory Failure with Hypoxia and Hypercapnia 2/2 HCAP and CHF exacerbation s/p MVS Tracheostomy status Oropharyngeal dysphagia s/p PEG h/o Ischemic cardiomyopathy HCAP AE-CHF exacerbation -Trach care, airway clearance, secretion management -Titrate supplemental oxygen to keep SpO2 89-90% -Bronchodilators -Start PMV trials as tolerated -Modified diet with aspiration precautions - complete ABs per ID recs (Cefepime) - continue contact isolation re: MRSA -Discontinue Good catheter - continue bronchodilators with pulmonary hygiene per RT - continue accuchecks with glycemic control per SSI for target blood glucose of < 180 mg/dL; avoid hypoglycemia - avoid nephrotoxins, renally dose all medications - continue to avoid benzodiazepines, reduce the possibility of delirium - prn analgesia per pain score - Maintenance of sleep-wake cycle, avoid delirium - G.I. & VTE prophylaxis - PT/OT/ROM exercises- increase activity - continue other care per attending / other consultants - discharge planning ongoing concurrently Subjective Date of service: 08/03/21 Principal diagnosis: Ac and ch hypoxemic and hypercapnic Resp Failure; HCAP; AE- CHF; s/p Trach Interval history: Patient is seen today for: Acute and chronic hypoxemic and hypercapnic Respiratory Failure; HCAP; AE-CHF; s/p Tracheostomy; H/O Ischemic cardiomyopathy Seen and examined at bedside; 24hour events reviewed; nursing and respiratory care staff consulted; no adverse overnight events reported to me; resting peacefully in bed;talking around trach; trach to ATP; tolerating a modified diet. Wants to know when the trach will be taken out Objective Vital Signs - 12hr 08/02/21 08/02/21 08/02/21 21:00 22:16 22:18 Temperature 98.4 F Pulse Rate 87 87 Pulse Rate [ Bilateral Throughout] Respiratory 18 Rate Respiratory Rate [Bilateral Throughout] Blood Pressure 143/81 Blood Pressure 143/81 [Left] O2 Sat by Pulse 98 99 Oximetry O2 Sat by Pulse Oximetry [ Assessment] 08/03/21 08/03/21 08/03/21 00:00 02:03 02:05 Temperature Pulse Rate 87 Pulse Rate [ 106 H Bilateral Throughout] Respiratory Rate Respiratory 20 Rate [Bilateral Throughout] Blood Pressure Blood Pressure [Left] O2 Sat by Pulse 99 Oximetry O2 Sat by Pulse 98 Oximetry [ Assessment] 08/03/21 08/03/21 05:42 05:57 Temperature 98.6 F Pulse Rate 86 86 Pulse Rate [ Bilateral Throughout] Respiratory 22 Rate Respiratory Rate [Bilateral Throughout] Blood Pressure 132/70 132/76 Blood Pressure [Left] O2 Sat by Pulse 99 Oximetry O2 Sat by Pulse Oximetry [ Assessment] Constitutional: no acute distress, alert, other (atraumatic, normocephalic, trach to ATP) Eyes: non-icteric ENT: oropharynx moist, other (midline tracheostomy) Neck: supple, no lymphadenopathy, no JVD Effort: normal Ascultation: Bilateral: diminished breath sounds, wheezes, rhonchi (scant) Percussion: Bilateral: not dull Cardiovascular: regular rate and rhythm, other (S1,S2) Gastrointestinal: normoactive bowel sounds, soft, non-tender, non-distended (protuberant), other (PEG) Integumentary: normal Extremities: no cyanosis, pulses normal, no ischemia or petechiae, edema Neurologic: normal mental status, non-focal exam, pupils equal and round, CN II- XII normal, motor strength normal and, other (moves all extremities) Psychiatric: mood appropriate, affect normal CBC and BMP: 07/30/21 04:19 08/01/21 05:42 ABG, PT/INR, D-dimer: ABG ABG pH 7.449 pH Units (7.350-7.450) 07/29/21 20:45 ABG pCO2 51.3 mm Hg 07/29/21 20:45 ABG pO2 85.8 mm Hg (80.0-90.0) 07/29/21 20:45 ABG O2 Saturation 97.0 % (95.0-99.0) 07/29/21 20:45 Abnormal lab findings: Abnormal Labs 07/25/21 07/25/21 07/25/21 11:19 21:50 Unknown WBC 18.1 H Hgb Hct MCV MCH RDW 16.2 H Seg Neuts % (Manual) Lymphocytes % (Manual) Seg Neutrophils # Man 12.1 H Lymphocytes # (Manual) ABG pH 6.917 L* ABG pO2 331.8 H ABG HCO3 39.3 H ABG O2 Saturation 99.4 H ABG Base Excess ABG Hemoglobin 12.1 L Oxyhemoglobin Sodium Potassium Chloride Carbon Dioxide BUN Creatinine Glucose POC Glucose Lactic Acid C-Reactive Protein Albumin Nijcd-7-Smafpqynf PEP Interpretation Urine WBC (Auto) 26.0 H Urine Creatinine Urine Total Protein 07/25/21 07/25/21 07/25/21 Unknown Unknown Unknown WBC Hgb Hct MCV MCH RDW Seg Neuts % (Manual) Lymphocytes % (Manual) Seg Neutrophils # Man Lymphocytes # (Manual) ABG pH 7.029 L* ABG pO2 97.5 H ABG HCO3 37.2 H ABG O2 Saturation 93.5 L ABG Base Excess ABG Hemoglobin 12.7 L Oxyhemoglobin 91.7 L Sodium 129 L Potassium Chloride 90.1 L Carbon Dioxide BUN 8 L Creatinine Glucose 258 H POC Glucose Lactic Acid 4.90 H* C-Reactive Protein Albumin 3.8 L Hrdyg-1-Fbxdgvmju PEP Interpretation Urine WBC (Auto) Urine Creatinine Urine Total Protein 07/25/21 07/26/21 07/26/21 Unknown 00:10 03:50 WBC 15.5 H Hgb Hct MCV MCH RDW 15.4 H Seg Neuts % (Manual) 96.0 H Lymphocytes % (Manual) 3.0 L Seg Neutrophils # Man 14.9 H Lymphocytes # (Manual) 0.5 L ABG pH 7.217 L ABG pO2 162.9 H ABG HCO3 34.3 H ABG O2 Saturation ABG Base Excess 4.0 H ABG Hemoglobin 12.5 L Oxyhemoglobin Sodium Potassium Chloride Carbon Dioxide BUN Creatinine Glucose POC Glucose 158 H Lactic Acid C-Reactive Protein Albumin Sojzv-7-Cwvvdhocr PEP Interpretation Urine WBC (Auto) Urine Creatinine Urine Total Protein 07/26/21 07/26/21 07/26/21 03:50 04:30 07:44 WBC Hgb Hct MCV MCH RDW Seg Neuts % (Manual) Lymphocytes % (Manual) Seg Neutrophils # Man Lymphocytes # (Manual) ABG pH 7.170 L* ABG pO2 65.5 L ABG HCO3 33.9 H ABG O2 Saturation ABG Base Excess ABG Hemoglobin 12.0 L Oxyhemoglobin 93.5 L Sodium 132 L Potassium 6.0 H D 5.6 H Chloride 93.2 L Carbon Dioxide BUN Creatinine Glucose 171 H POC Glucose Lactic Acid C-Reactive Protein Albumin 3.7 L Nashi-3-Wcnurkwct PEP Interpretation Urine WBC (Auto) Urine Creatinine Urine Total Protein 07/26/21 07/26/21 07/27/21 12:34 17:18 04:54 WBC 11.9 H Hgb 11.1 L Hct 34.5 L MCV MCH 27 L RDW 15.5 H Seg Neuts % (Manual) Lymphocytes % (Manual) Seg Neutrophils # Man Lymphocytes # (Manual) ABG pH 7.286 L ABG pO2 100.0 H ABG HCO3 31.4 H ABG O2 Saturation ABG Base Excess 3.2 H ABG Hemoglobin 11.8 L Oxyhemoglobin Sodium Potassium Chloride Carbon Dioxide BUN Creatinine Glucose POC Glucose 111 H Lactic Acid C-Reactive Protein Albumin Urfqv-9-Rcdcdaflc PEP Interpretation Urine WBC (Auto) Urine Creatinine Urine Total Protein 07/27/21 07/27/21 07/27/21 04:54 10:30 15:57 WBC Hgb Hct MCV MCH RDW Seg Neuts % (Manual) Lymphocytes % (Manual) Seg Neutrophils # Man Lymphocytes # (Manual) ABG pH ABG pO2 76.9 L ABG HCO3 30.2 H ABG O2 Saturation ABG Base Excess 3.9 H ABG Hemoglobin 11.2 L Oxyhemoglobin Sodium 136 L Potassium Chloride Carbon Dioxide BUN 37 H Creatinine 2.2 H D Glucose POC Glucose Lactic Acid C-Reactive Protein 2.40 H Albumin Jwdhs-2-Psaqwqpih PEP Interpretation Urine WBC (Auto) Urine Creatinine Urine Total Protein 07/27/21 07/27/21 07/27/21 17:45 17:45 17:52 WBC Hgb Hct MCV MCH RDW Seg Neuts % (Manual) Lymphocytes % (Manual) Seg Neutrophils # Man Lymphocytes # (Manual) ABG pH ABG pO2 ABG HCO3 ABG O2 Saturation ABG Base Excess ABG Hemoglobin Oxyhemoglobin Sodium Potassium Chloride Carbon Dioxide BUN Creatinine Glucose POC Glucose 114 H Lactic Acid C-Reactive Protein Albumin Gympq-7-Mcgifpuje PEP Interpretation Urine WBC (Auto) Urine Creatinine 106.0 H 105.6 H Urine Total Protein 30 H 07/28/21 07/28/21 07/28/21 04:32 04:32 04:32 WBC Hgb 11.0 L Hct 34.4 L MCV MCH 27 L RDW 16.0 H Seg Neuts % (Manual) Lymphocytes % (Manual) Seg Neutrophils # Man Lymphocytes # (Manual) ABG pH ABG pO2 ABG HCO3 ABG O2 Saturation ABG Base Excess ABG Hemoglobin Oxyhemoglobin Sodium 135 L Potassium Chloride Carbon Dioxide BUN 40 H Creatinine 2.3 H Glucose 124 H POC Glucose Lactic Acid C-Reactive Protein Albumin 3.0 L Yzhfn-7-Rghpegriy 0.4 H PEP Interpretation see below H Urine WBC (Auto) Urine Creatinine Urine Total Protein 07/28/21 07/28/21 07/28/21 11:19 13:12 17:34 WBC Hgb Hct MCV MCH RDW Seg Neuts % (Manual) Lymphocytes % (Manual) Seg Neutrophils # Man Lymphocytes # (Manual) ABG pH ABG pO2 103.7 H ABG HCO3 32.7 H ABG O2 Saturation ABG Base Excess 7.1 H ABG Hemoglobin 10.8 L Oxyhemoglobin Sodium Potassium Chloride Carbon Dioxide BUN Creatinine Glucose POC Glucose 117 H 124 H Lactic Acid C-Reactive Protein Albumin [place]-9-Xrslpvabv PEP Interpretation Urine WBC (Auto) Urine Creatinine Urine Total Protein 07/28/21 07/29/21 07/29/21 23:54 05:09 05:39 WBC Hgb Hct MCV MCH RDW Seg Neuts % (Manual) Lymphocytes % (Manual) Seg Neutrophils # Man Lymphocytes # (Manual) ABG pH ABG pO2 ABG HCO3 ABG O2 Saturation ABG Base Excess ABG Hemoglobin Oxyhemoglobin Sodium Potassium Chloride Carbon Dioxide 32 H BUN 34 H Creatinine 2.1 H Glucose 124 H POC Glucose 107 H 120 H Lactic Acid C-Reactive Protein Albumin Wufix-0-Wilpyhehr PEP Interpretation Urine WBC (Auto) Urine Creatinine Urine Total Protein 07/29/21 07/29/21 07/29/21 09:00 20:45 23:15 WBC Hgb Hct MCV MCH RDW Seg Neuts % (Manual) Lymphocytes % (Manual) Seg Neutrophils # Man Lymphocytes # (Manual) ABG pH ABG pO2 131.5 H ABG HCO3 35.1 H 34.7 H ABG O2 Saturation ABG Base Excess 9.1 H 9.3 H ABG Hemoglobin 11.8 L 11.7 L Oxyhemoglobin Sodium Potassium Chloride Carbon Dioxide BUN Creatinine Glucose POC Glucose 114 H Lactic Acid C-Reactive Protein Albumin Eiwvn-5-Hoflbunkf PEP Interpretation Urine WBC (Auto) Urine Creatinine Urine Total Protein 07/30/21 07/30/21 07/30/21 04:19 04:19 05:25 WBC Hgb 10.9 L Hct 32.6 L MCV 83 L MCH RDW 16.2 H Seg Neuts % (Manual) Lymphocytes % (Manual) Seg Neutrophils # Man Lymphocytes # (Manual) ABG pH ABG pO2 ABG HCO3 ABG O2 Saturation ABG Base Excess ABG Hemoglobin Oxyhemoglobin Sodium Potassium Chloride Carbon Dioxide 33 H BUN 32 H Creatinine 2.2 H Glucose 108 H POC Glucose 109 H Lactic Acid C-Reactive Protein Albumin Moyrt-4-Ntacypbpl PEP Interpretation Urine WBC (Auto) Urine Creatinine Urine Total Protein 07/31/21 07/31/21 07/31/21 04:26 05:35 23:23 WBC Hgb Hct MCV MCH RDW Seg Neuts % (Manual) Lymphocytes % (Manual) Seg Neutrophils # Man Lymphocytes # (Manual) ABG pH ABG pO2 ABG HCO3 ABG O2 Saturation ABG Base Excess ABG Hemoglobin Oxyhemoglobin Sodium Potassium Chloride Carbon Dioxide 32 H BUN 30 H Creatinine 2.1 H Glucose 108 H POC Glucose 124 H 116 H Lactic Acid C-Reactive Protein Albumin Kwggw-3-Lkkxskuef PEP Interpretation Urine WBC (Auto) Urine Creatinine Urine Total Protein 08/01/21 08/01/21 08/01/21 05:42 11:49 16:42 WBC Hgb Hct MCV MCH RDW Seg Neuts % (Manual) Lymphocytes % (Manual) Seg Neutrophils # Man Lymphocytes # (Manual) ABG pH ABG pO2 ABG HCO3 ABG O2 Saturation ABG Base Excess ABG Hemoglobin Oxyhemoglobin Sodium Potassium Chloride Carbon Dioxide 33 H BUN 29 H Creatinine 2.0 H Glucose 106 H POC Glucose 111 H 65 L Lactic Acid C-Reactive Protein Albumin Xqhyl-5-Nasrugabk PEP Interpretation Urine WBC (Auto) Urine Creatinine Urine Total Protein 08/03/21 00:07 WBC Hgb Hct MCV MCH RDW Seg Neuts % (Manual) Lymphocytes % (Manual) Seg Neutrophils # Man Lymphocytes # (Manual) ABG pH ABG pO2 ABG HCO3 ABG O2 Saturation ABG Base Excess ABG Hemoglobin Oxyhemoglobin Sodium Potassium Chloride Carbon Dioxide BUN Creatinine Glucose POC Glucose 111 H Lactic Acid C-Reactive Protein Albumin Vcywi-0-Ssjsnimto PEP Interpretation Urine WBC (Auto) Urine Creatinine Urine Total Protein Allied health notes reviewed: nursing
[2021-08-03] MEDS: FAMOTIDINE 10 MG TAB FEEDTUBE SCH ×2 (08:59→21:45)
[2021-08-03] MEDS: amLODIPine 5 MG TAB FEEDTUBE SCH (08:59)
[2021-08-03] MEDS: HEPARIN 5,000 UNIT/1 ML VIAL SUB-Q SCH ×2 (08:59→21:50)
--- NOTE | 2021-08-03 11:09 | Progress Note ---
Assessment and Plan Assessment and plan: This is a 61-year-old male who is a resident of a fpc facility with chronic hypoxic respiratory failure s/p trach with vent dependency, recent COVID-19 infection, ischemic cardiomyopathy, type 2 diabetes mellitus, obesity who presented to the emergency department on 07/25 via EMS with chief complaints of respiratory distress from his fdc. In the emergency department patient was placed on the ventilator as he was tachypneic, dyspneic and did not improve after suctioning. Work-up in the emergency department revealed lactic acidosis, leukocytosis and CXR revealed possible retrocardiac pneumonia and started on antibiotics for HAP. Patient was admitted to the hospitalist service with consults to CCM with acute on chronic respiratory failure and HAP. Assessment and plan: This is a 61 year old male from a SNF with chronic hypoxic resp failure s/p t kaia, recent COVID 19 infection, ischemic cardiomyopathy IDDM, obesity admitted with acute on chronic resp failure, HAP, hyperkalemia, and lactic acidosis. Neuro: NAD -p.o. oxycodone prn -Reorientation as needed -Maintain sleep-wake cycle -CT head continued mild microvascular angiopathy without clear CT evidence of acute intercranial hemorrhage Cardiac: h/o HTN -Cardiology consulted, appreciate recommendations -Blood pressure monitoring per protocol -03/09/21 Echocardiogram LVEF 60-65% -Amlodipine, Labetalol, hydralazine PO (titrate as tolerated) -Avoid ACEi or ARB in setting of MONIK Respiratory: Acute on chronic hypercapnic respiratory failure, s/p trach -CCM consulted, appreciate recommendations -T piece 35 % Fio2 -See RT notes for titration -Pulm hygiene -SPO2 monitoring GI: MO, moderate protein calorie malnutrition -24 hours + 398 mL -PPI -NTR consulted for tube feedings -s/p PEG tube in place -BR: Senokat S : Acute kidney injury (improving), h/o urinary retention -Nephrology consulted, appreciate recommendations -Renal ultrasound shows echogenic kidneys which can be seen with medical renal disease, no hydronephrosis -FeNa indicate prerenal -Monitor intake and output -Renally dose medications -Avoid nephrotoxic medications -Good catheter placed for urinary retention -Trend BMP ID: HAP (POA) -Infectious disease consulted, appreciate recommendations -COVID PCR (-) -MRSA PCR positive -07/25 BC x2 NGTD, UC NGTD -Antibiotic therapy with cefepime -f/u blood culture -Monitor WBC and temperature curve Endo: h/o DM -Avoid hypoglycemia -SSI -Accu-Cheks q. 6 Heme: Leukocytosis -Heparin subq -Trend CBC -Transfuse hemoglobin less than 7 -Monitor for signs of bleeding -SCDs to BLE while in bed Hospital course to date: 07/26: Stopped Solu-Medrol, given For hyperkalemia, started on tube feedings. Remains on fentanyl and Mucomyst 07/27: Renal indices increased, patient did receive Lasix x1 yesterday. Nephrology was consulted. Urine lites and bilateral renal ultrasound pending. Infectious disease consulted. Bladder scan performed and Good catheter placed. COVID 19 PCR negative 07/28: No acute events reported overnight, worsening renal function-nephrology is on the case. Continue with cefepime per ID. Vent changes per CCM. 07/29: Slight improvement to renal function tests, remains on assist control. No acute events reported overnight. 07/30: Patient has been on T-piece all night. Renal function continues slightly worse however patient is still creating urine. Possible transfer to floor or imcu. Per pt he is requesting transfer to another fdc if needed on discharge. 07/31: IMCU currently. Resting comfortably. no complaints. ST/PT eval. Working with CM for placement back to LTAC. ID okay with discontinuing antibiotics. Discussed patient case with pulmonology as well Dr. Azul 08/01: Patient still requiring 8 L of O2 via T-piece. Case management working for possible placement at LTAC. ID discontinue antibiotics. Continue PMV trials as tolerated. 08/02/2021 Patient still requiring high flow oxygen 08/03/2021. Patient still requiring 8 L of O2 via T-piece. Continue PMV trials as tolerated. History Interval history: No new issues overnight Hospitalist Physical - Constitutional Vitals: Temp Pulse Resp BP Pulse Ox 98.6 F 91 H 18 132/76 98 08/03/21 05:42 08/03/21 07:31 08/03/21 07:31 08/03/21 05:57 08/03/21 08:15 General appearance: Present: no acute distress, well-nourished - EENT Eyes: Present: PERRL, EOM intact ENT: hearing intact, clear oral mucosa, dentition normal - Neck Neck: Present: supple, normal ROM - Respiratory Respiratory effort: normal Respiratory: bilateral: CTA - Cardiovascular Rhythm: regular Heart Sounds: Present: S1 & S2. Absent: gallop, rub - Extremities Extremities: no ischemia, No edema, Full ROM - Abdominal General gastrointestinal: soft, non-tender, non-distended, normal bowel sounds - Integumentary Integumentary: Present: clear, warm, dry - Neurologic Neurologic: CNII-XII intact, moves all extremities HEART Score - HEART Score Troponin: Troponin T < 0.010 ng/mL (0.00-0.029) 07/25/21 Unknown Results - Labs CBC & Chem 7: 07/30/21 04:19 08/01/21 05:42 Labs: Laboratory Last Values WBC 7.4 K/mm3 (4.5-11.0) 07/30/21 04:19 RBC 3.93 M/mm3 (3.65-5.03) 07/30/21 04:19 Hgb 10.9 gm/dl (11.8-15.2) L 07/30/21 04:19 Hct 32.6 % (35.5-45.6) L 07/30/21 04:19 MCV 83 fl (84-94) L 07/30/21 04:19 MCH 28 pg (28-32) 07/30/21 04:19 MCHC 34 % (32-34) 07/30/21 04:19 RDW 16.2 % (13.2-15.2) H 07/30/21 04:19 Plt Count 324 K/mm3 (140-440) 07/30/21 04:19 Lymph # (Auto) 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 Mill Supervisor 07/25/21 Unknown Add Manual Diff Complete 07/26/21 03:50 Total Counted 100 07/26/21 03:50 Seg Neuts % (Manual) 96.0 % (40.0-70.0) H 07/26/21 03:50 Band Neutrophils % 0 % 07/26/21 03:50 Lymphocytes % (Manual) 3.0 % (13.4-35.0) L 07/26/21 03:50 Reactive Lymphs % (Man) 0 % 07/26/21 03:50 Monocytes % (Manual) 1.0 % (0.0-7.3) 07/26/21 03:50 Eosinophils % (Manual) 0 % (0.0-4.3) 07/26/21 03:50 Basophils % (Manual) 0 % (0.0-1.8) 07/26/21 03:50 Metamyelocytes % 0 % 07/26/21 03:50 Myelocytes % 0 % 07/26/21 03:50 Promyelocytes % 0 % 07/26/21 03:50 Blast Cells % 0 % 07/26/21 03:50 Nucleated RBC % Not Reportable 07/26/21 03:50 Seg Neutrophils # Man 14.9 K/mm3 (1.8-7.7) H 07/26/21 03:50 Band Neutrophils # 0.0 K/mm3 07/26/21 03:50 Lymphocytes # (Manual) 0.5 K/mm3 (1.2-5.4) L 07/26/21 03:50 Abs React Lymphs (Man) 0.0 K/mm3 07/26/21 03:50 Monocytes # (Manual) 0.2 K/mm3 (0.0-0.8) 07/26/21 03:50 Eosinophils # (Manual) 0.0 K/mm3 (0.0-0.4) 07/26/21 03:50 Basophils # (Manual) 0.0 K/mm3 (0.0-0.1) 07/26/21 03:50 Metamyelocytes # 0.0 K/mm3 07/26/21 03:50 Myelocytes # 0.0 K/mm3 07/26/21 03:50 Promyelocytes # 0.0 K/mm3 07/26/21 03:50 Blast Cells # 0.0 K/mm3 07/26/21 03:50 WBC Morphology Not Reportable 07/26/21 03:50 Hypersegmented Neuts Not Reportable 07/26/21 03:50 Hyposegmented Neuts Not Reportable 07/26/21 03:50 Hypogranular Neuts Not Reportable 07/26/21 03:50 Smudge Cells Not Reportable 07/26/21 03:50 Toxic Granulation Not Reportable 07/26/21 03:50 Toxic Vacuolation Not Reportable 07/26/21 03:50 Dohle Bodies Not Reportable 07/26/21 03:50 Pelger-Huet Anomaly Not Reportable 07/26/21 03:50 Mely Rods Not Reportable 07/26/21 03:50 Platelet Estimate Consistent w auto 07/26/21 03:50 Clumped Platelets Not Reportable 07/26/21 03:50 Plt Clumps, EDTA Not Reportable 07/26/21 03:50 Large Platelets Not Reportable 07/26/21 03:50 Giant Platelets Not Reportable 07/26/21 03:50 Platelet Satelliting Not Reportable 07/26/21 03:50 Plt Morphology Comment Not Reportable 07/26/21 03:50 RBC Morphology Not Reportable 07/26/21 03:50 Dimorphic RBCs Not Reportable 07/26/21 03:50 Polychromasia Not Reportable 07/26/21 03:50 Hypochromasia Not Reportable 07/26/21 03:50 Poikilocytosis Not Reportable 07/26/21 03:50 Anisocytosis 1+ 07/26/21 03:50 Microcytosis Not Reportable 07/26/21 03:50 Macrocytosis Not Reportable 07/26/21 03:50 Spherocytes Few 07/26/21 03:50 Pappenheimer Bodies Not Reportable 07/26/21 03:50 Sickle Cells Not Reportable 07/26/21 03:50 Target Cells Not Reportable 07/26/21 03:50 Tear Drop Cells Not Reportable 07/26/21 03:50 Ovalocytes Not Reportable 07/26/21 03:50 Helmet Cells Not Reportable 07/26/21 03:50 [place]o-[place] Bodies Not Reportable 07/26/21 03:50 [place] Rings Not Reportable 07/26/21 03:50 [place] Cells Not Reportable 07/26/21 03:50 Bite Cells Not Reportable 07/26/21 03:50 Crenated Cell Not Reportable 07/26/21 03:50 Elliptocytes Not Reportable 07/26/21 03:50 Acanthocytes (Spur) Not Reportable 07/26/21 03:50 Rouleaux Not Reportable 07/26/21 03:50 Hemoglobin C Crystals Not Reportable 07/26/21 03:50 Schistocytes Not Reportable 07/26/21 03:50 Malaria parasites Not Reportable 07/26/21 03:50 Shaheen Bodies Not Reportable 07/26/21 03:50 Hem Pathologist Commnt No 07/26/21 03:50 ABG pH 7.449 pH Units (7.350-7.450) 07/29/21 20:45 ABG pCO2 51.3 mm Hg 07/29/21 20:45 ABG pO2 85.8 mm Hg (80.0-90.0) 07/29/21 20:45 ABG HCO3 34.7 mmol/L (20.0-26.0) H 07/29/21 20:45 ABG O2 Saturation 97.0 % (95.0-99.0) 07/29/21 20:45 ABG O2 Content 15.7 (0.0-44) 07/29/21 20:45 ABG Base Excess 9.3 mmol/L (-2.0-3.0) H 07/29/21 20:45 ABG Hemoglobin 11.7 gm/dl (14.0-18.0) L 07/29/21 20:45 ABG Carboxyhemoglobin 1.2 % (0.0-5.0) 07/29/21 20:45 ABG Methemoglobin 0.6 % (0.0-1.5) 07/29/21 20:45 Oxyhemoglobin 95.2 % (95.0-99.0) 07/29/21 20:45 FiO2 35 % 07/29/21 20:45 Sodium 141 mmol/L (137-145) 08/01/21 05:42 Potassium 4.7 mmol/L (3.6-5.0) 08/01/21 05:42 Chloride 99.7 mmol/L (98-107) 08/01/21 05:42 Carbon Dioxide 33 mmol/L (22-30) H 08/01/21 05:42 Anion Gap 13 mmol/L 08/01/21 05:42 BUN 29 mg/dL (9-20) H 08/01/21 05:42 Creatinine 2.0 mg/dL (0.8-1.3) H 08/01/21 05:42 Estimated GFR 34 ml/min 08/01/21 05:42 BUN/Creatinine Ratio 15 % 08/01/21 05:42 Glucose 106 mg/dL (75-100) H 08/01/21 05:42 POC Glucose 90 mg/dL (70-105) 08/03/21 05:41 Hemoglobin A1c 5.9 % (4-6) 07/26/21 03:50 Lactic Acid 4.90 mmol/L (0.7-2.0) H* 07/25/21 Unknown Calcium 9.9 mg/dL (8.4-10.2) 08/01/21 05:42 Total Bilirubin 0.20 mg/dL (0.1-1.2) 07/26/21 03:50 AST 19 units/L (5-40) 07/26/21 03:50 ALT 11 units/L (7-56) 07/26/21 03:50 Alkaline Phosphatase 73 units/L (35-129) 07/26/21 03:50 Troponin T < 0.010 ng/mL (0.00-0.029) 07/25/21 Unknown C-Reactive Protein 2.40 mg/dL (0.00-1.30) H 07/27/21 15:57 Serum Total Protein 6.4 g/dL (6.1-8.1) 07/28/21 04:32 Total Protein 8.2 g/dL (6.3-8.2) 07/26/21 03:50 Albumin 3.0 g/dL (3.8-4.8) L 07/28/21 04:32 Albumin/Globulin Ratio 0.8 % 07/26/21 03:50 Elwrs-2-Ltlcrxpdu 0.4 g/dL (0.2-0.3) H 07/28/21 04:32 Ldgtv-0-Uwvfnfjug 0.7 g/dL (0.5-0.9) 07/28/21 04:32 Beta Globulins 0.4 g/dL (0.2-0.5) 07/28/21 04:32 Gamma Globulins 1.5 g/dL (0.8-1.7) 07/28/21 04:32 Abnorm Protein Band 1 see below 07/28/21 04:32 PEP Interpretation see below H 07/28/21 04:32 Procalcitonin 0.77 ng/mL (<0.15) 07/27/21 15:57 Urine Color Yellow (Yellow) 07/25/21 11:19 Urine Turbidity Cloudy (Clear) 07/25/21 11:19 Urine pH 6.0 (5.0-7.0) 07/25/21 11:19 Ur Specific [place] 1.015 (1.003-1.030) 07/25/21 11:19 Urine Protein >500 mg/dL (Negative) 07/25/21 11:19 Urine Glucose (UA) 150 mg/dL (Negative) 07/25/21 11:19 Urine Ketones Neg mg/dL (Negative) 07/25/21 11:19 Urine Blood Neg (Negative) 07/25/21 11:19 Urine Nitrite Neg (Negative) 07/25/21 11:19 Urine Bilirubin Neg (Negative) 07/25/21 11:19 Urine Urobilinogen < 2.0 mg/dL (<2.0) 07/25/21 11:19 Ur Leukocyte Esterase Neg (Negative) 07/25/21 11:19 Urine WBC (Auto) 26.0 /HPF (0.0-6.0) H 07/25/21 11:19 Urine RBC (Auto) 53.0 /HPF (0.0-6.0) 07/25/21 11:19 U Epithel Cells (Auto) 7.0 /HPF (0-13.0) 07/25/21 11:19 Urine Bacteria (Auto) 4+ /HPF (Negative) 07/25/21 11:19 Hyaline Casts 21 /LPF 07/25/21 11:19 Urine Mucus Few /HPF 07/25/21 11:19 Urine Yeast (Budding) 2+ /HPF 07/25/21 11:19 Urine Sperm 3+ /HPF (DEPOSIT CLERK) 07/25/21 11:19 Urine Eosinophils None seen (None Seen) 07/27/21 17:45 Urine Creatinine 105.6 mg/dL (0.1-20.0) H 07/27/21 17:45 Urine Creatinine 106.0 mg/dL (0.1-20.0) H 07/27/21 17:45 Protein/Creatinin Ratio 0.28 07/27/21 17:45 Urine Sodium 46 mmol/L 07/27/21 17:45 Urine Total Protein 30 mg/dL (5-11.8) H 07/27/21 17:45 Nasal Screen MRSA (PCR) Positive (Negative) 07/26/21 16:30 PUMA Screen Negative (Negative) 07/27/21 18:17 Proteinase 3 (PR3) Ab <1.0 AI (<1.0) 07/27/21 18:17 Myeloperoxidase Ab <1.0 AI (<1.0) 07/27/21 18:17 Double Strand DNA Ab 1 IU/mL (<=4) 07/27/21 18:17 Complement C3 149 mg/dL (82-185) 07/27/21 18:17 Complement C4 48 mg/dL (15-53) 07/27/21 18:17 Coronavirus (PCR) Negative (Negative) 07/27/21 09:00 SARS-CoV-2 (PCR) Negative (Negative) 07/31/21 13:05 Hepatitis A IgM Ab Non-reactive (NonReactive) 07/27/21 18:17 Hep Bs Antigen Non-reactive (Negative) 07/27/21 18:17 Hep B Core IgM Ab Non-reactive (NonReactive) 07/27/21 18:17 Hepatitis C Antibody Non-reactive (NonReactive) 07/27/21 18:17 Good/IV: Voiding Method Indwelling Catheter Active Medications - Current Medications Current Medications: Generic Name Dose Route Start Last Admin Trade Name Freq PRN Reason Stop Dose Admin Acetaminophen 650 mg 07/25/21 16:00 Acetaminophen 325 Mg Tab PO Q4H PRN Pain MILD(1-3)/Fever >100.5/RAYO Albuterol/Ipratropium 1 ampul 07/26/21 16:00 08/03/21 07:31 Ipratropium/Albuterol Sulfate 3 Ml Ampul.Neb IH 1 ampul Q8HRT BLANCA Administration Amlodipine Besylate 10 mg 07/28/21 10:00 08/03/21 08:59 Amlodipine 5 Mg Tab FEEDTUBE 10 mg QDAY BLANCA Administration Lipase/Protease/Amylase 1 each 07/26/21 14:56 Lipase 10,500/Protease 25,000/Amylase 43,750 (Units) Dr Zambrano FEEDTUBE PRN PRN For Clogged Feeding Tube Dextrose 50 ml 07/26/21 12:22 Dextrose 50% In Water (25gm) 50 Ml Syringe IV Q30MIN PRN Hypoglycemia Protocol Famotidine 10 mg 07/27/21 10:00 08/03/21 08:59 Famotidine 10 Mg Tab FEEDTUBE 10 mg BID BLANCA Administration Heparin Sodium (Porcine) 5,000 unit 07/25/21 16:00 08/03/21 08:59 Heparin 5,000 Unit/1 Ml Vial SUB-Q 5,000 unit Q12HR BLANCA Administration Hydralazine HCl 25 mg 07/30/21 14:00 08/03/21 05:57 Hydralazine 25 Mg Tab PO 25 mg Q8HR BLANCA Administration Hydralazine HCl 15 mg 07/30/21 07:44 Hydralazine 20 Mg/1 Ml Inj IV Q6H PRN Blood Pressure Insulin Human Regular 0 units 07/26/21 12:00 08/03/21 06:01 Insulin Regular, Human 100 Units/1 Ml SUB-Q Not Given Q6HR [facility] Protocol Labetalol HCl 100 mg 07/28/21 10:00 08/03/21 08:59 Labetalol 100 Mg Tab FEEDTUBE 100 mg BID BLANCA Administration Ondansetron HCl 4 mg 07/25/21 16:00 Ondansetron 4 Mg/2 Ml Inj IV Q8H PRN Nausea And Vomiting Oxycodone/Acetaminophen 1 tab 07/27/21 12:27 08/01/21 18:54 Oxycodone /Acetaminophen 5-325mg Tab PO 1 tab Q6H PRN Administration Pain, Moderate (4-6) Polyethylene Glycol 17 gm 07/26/21 17:04 Polyethylene Glycol 3350 17 Gm Powder PO QDAY PRN Constipation Senna/Docusate Sodium 1 tab 07/26/21 22:00 08/02/21 22:18 Sennosides/Docusate Sodium 8.6/50 Mg Tab PO 1 tab QHS BLANCA Administration Simple Syrup 15 ml 07/26/21 14:56 Simple Syrup 15 Ml FEEDTUBE PRN PRN Hypoglycemia Simple Syrup 30 ml 07/26/21 14:56 Simple Syrup 15 Ml FEEDTUBE PRN PRN Hypoglycemia Sodium Bicarbonate 325 mg 07/26/21 14:56 Sodium Bicarbonate 325 Mg Tab FEEDTUBE PRN PRN For Clogged Feeding Tube Sodium Chloride 10 ml 07/25/21 22:00 08/03/21 08:59 Sodium Chloride 0.9% 10 Ml Flush Syringe IV 10 ml BID BLANCA Administration Sodium Chloride 10 ml 07/25/21 16:00 07/26/21 00:08 Sodium Chloride 0.9% 10 Ml Flush Syringe IV 10 ml PRN PRN Administration LINE FLUSH Nutrition/Malnutrition Assess - Dietary Evaluation Nutrition/Malnutrition Findings: Nutrition Notes Start: 07/26/21 14:26 Freq: Status: Active Protocol: Document 07/31/21 14:46 BRIAN (Rec: 07/31/21 14:52 BRIAN [email or web address]) Nutrition Notes Initial or Follow up Reassessment Current Diagnosis Acute Kidney Injury,Diabetes, Hypertension,Respiratory Failure Other Pertinent Diagnosis Pneu Current Diet TF - Glucerna 1.2 at 55ml/hr Labs/Tests BUN 30 Cr 2.1 Pertinent Medications Reviewed Height 6 ft Weight 110 kg Moran Body Weight (kg) 80.90 BMI 32.8 Weight change and time frame Wt change noted Weight Status Obese Subjective/Other Information Pt now on T-piece with 35% FiO2. Per RN, he is tolerating TF at goal rate of 55ml/hr. Per nephrology note on yesterday, no need for dialysis at this time. Percent of energy/protein needs met: 68% energy 100% pro Burn Absent Trauma Absent #1 Nutrition Diagnosis Swallowing difficulty Diagnosis Progress(for reassessment Continues documentation) Is patient on ventilator? No Is Patient Ambulatory and/or Out of Bed No REE-([place]-confined to bed) [phone] Calculation Used for Recommendations 65-70% REE Additional Notes Energy needs: 0337-0638 kcal/ day Pro needs 0.8-1.2g/kg adjBW: 76-115g/day Fluid needs 1ml/kcal Nutrition Intervention Nutrition Support: Continue Glucerna 1.2 at 55ml/ hr with 85ml water flush q4h. Kcal 1,584 Protein (gm) 79 Carbohydrates (gm) 151 Fat (gm) 79 Fluid (mL) 1,063 Fiber (gm) 21 Goal #1 TF tolerance Goal #2 TF to meet 65-70% energy and at least 75% pro needs Follow-Up By: 08/07/21 Additional Comments F/U: stable TF, wt, renal function
--- NOTE | 2021-08-03 13:10 | Progress Note ---
Subjective Principal diagnosis: Ac and ch hypoxemic and hypercapnic Resp Failure; HCAP; AE- CHF; s/p Trach Interval history: Assessment and plan: #Renal function appears to be stable, multiple risk factor for underlying c hronic kidney disease, creatinine was 2.1 on July 29 continue to monitor renal function closely,Vasculitic work-up has been negative Renal ultrasonogram shows bilateral echogenic kidneys, Low-grade proteinuria 300 mg by ratio History of COVID-19, at risk for cardiorenal injury due to cardiorenal syndrome, has had hypoxic variety of respiratory failure #Continue with supportive care Maintain hydration and close follow-up on the renal function If there are any renal related issues in regards to this patient please feel free to reach out without any hesitation at [phone] We'll continue to follow and make recommendation for renal standpoint. Progress note by: Florian Pineda MD [address] [place] [id number] Tele [phone] [email or web address] Patient was seen today for follow-up of multiple renal related issues Interdisciplinary notes that also reviewed Events of 24 hours vitals labs intake output medications were reviewed Past medical history: Reviewed Family history: Reviewed Social history: Reviewed Allergies: Reviewed Physical examination: Vitals: Reviewed HEENT: No pallor or icterus oral mucosa moist Neck: Supple no JVD no thyromegaly Chest: Bilateral clear to auscultation anteriorly Heart: Regular rate and rhythm S1-S2 heard no S3-S4 Abdomen: Soft nontender no voluntary guarding rigidity rebound Extremity: Dry skin less than 1+ peripheral edema Psychiatric: No evidence of agitation and aggression noted Dermatology: No petechial rashes Labs and x-rays: Reviewed from today Objective - Vital Signs Vital signs: Vital Signs - 12hr 08/03/21 08/03/21 08/03/21 02:03 02:05 05:42 Temperature 98.6 F Pulse Rate 86 Pulse Rate [ 106 H Bilateral Throughout] Respiratory 22 Rate Respiratory 20 Rate [Bilateral Throughout] Blood Pressure 132/70 O2 Sat by Pulse 99 99 Oximetry O2 Sat by Pulse 98 Oximetry [ Assessment] 08/03/21 08/03/21 08/03/21 05:57 07:31 08:15 Temperature Pulse Rate 86 Pulse Rate [ 91 H Bilateral Throughout] Respiratory Rate Respiratory 18 Rate [Bilateral Throughout] Blood Pressure 132/76 O2 Sat by Pulse 98 98 Oximetry O2 Sat by Pulse 98 Oximetry [ Assessment] 08/03/21 12:28 Temperature 97.9 F Pulse Rate 98 H Pulse Rate [ Bilateral Throughout] Respiratory 24 Rate Respiratory Rate [Bilateral Throughout] Blood Pressure 116/66 O2 Sat by Pulse 98 Oximetry O2 Sat by Pulse Oximetry [ Assessment] - Lab 07/30/21 04:19 08/01/21 05:42 Most recent lab results ABG pH 7.449 pH Units (7.350-7.450) 07/29/21 20:45 ABG pCO2 51.3 mm Hg 07/29/21 20:45 ABG pO2 85.8 mm Hg (80.0-90.0) 07/29/21 20:45 ABG HCO3 34.7 mmol/L (20.0-26.0) H 07/29/21 20:45 ABG O2 Saturation 97.0 % (95.0-99.0) 07/29/21 20:45 Calcium 9.9 mg/dL (8.4-10.2) 08/01/21 05:42 Urine Creatinine 105.6 mg/dL (0.1-20.0) H 07/27/21 17:45 Urine Creatinine 106.0 mg/dL (0.1-20.0) H 07/27/21 17:45 Urine Sodium 46 mmol/L 07/27/21 17:45 Urine Total Protein 30 mg/dL (5-11.8) H 07/27/21 17:45 Medications & Allergies - Medications Allergies/Adverse Reactions: Allergies No Known Allergies Allergy (Verified 07/25/21 11:02) Home Medications: Home Medications Medication Instructions Recorded Confirmed Last Taken Type No Known Home Medications [No 03/11/21 08/02/21 Unknown History Reported Home Medications] Apixaban [Eliquis] 5 mg FEEDTUBE Q12HR 30 Days #60 05/02/21 08/02/21 Unknown Rx tablet Doxazosin [Cardura] 1 mg FEEDTUBE BID 30 Days #60 05/02/21 08/02/21 Unknown Rx tablet Famotidine [Pepcid] 20 mg FEEDTUBE BID 30 Days #60 05/02/21 08/02/21 Unknown Rx tablet Glycopyrrolate 2 mg PO TID 30 Days #90 tablet 05/02/21 08/02/21 Unknown Rx Insulin Glargine [Lantus VIAL] 18 units SUB-Q QHS 30 Days #2 vial 05/02/21 08/02/21 Unknown Rx Metoprolol [Lopressor TAB] 12.5 mg FEEDTUBE BID 30 Days #60 05/02/21 08/02/21 Unknown Rx tablet amLODIPine 10 mg FEEDTUBE DAILY 30 Days #30 05/02/21 08/02/21 Unknown Rx tablet cephALEXin [Keflex] 500 mg PO Q8HR 2 Days #6 cap 05/02/21 08/02/21 Unknown Rx hydrALAZINE [Apresoline TAB] 50 mg FEEDTUBE Q8HR 30 Days #90 05/02/21 08/02/21 Unknown Rx tablet Active Medications: Generic Name Dose Route Start Last Admin Trade Name Freq PRN Reason Stop Dose Admin Acetaminophen 650 mg 07/25/21 16:00 Acetaminophen 325 Mg Tab PO Q4H PRN Pain MILD(1-3)/Fever >100.5/RAYO Albuterol/Ipratropium 1 ampul 08/03/21 14:00 Ipratropium/Albuterol Sulfate 3 Ml Ampul.Neb IH TIDRT [facility] Amlodipine Besylate 10 mg 07/28/21 10:00 08/03/21 08:59 Amlodipine 5 Mg Tab FEEDTUBE 10 mg QDAY BLANCA Administration Lipase/Protease/Amylase 1 each 07/26/21 14:56 Lipase 10,500/Protease 25,000/Amylase 43,750 (Units) Dr Zambrano FEEDTUBE PRN PRN For Clogged Feeding Tube Dextrose 50 ml 07/26/21 12:22 Dextrose 50% In Water (25gm) 50 Ml Syringe IV Q30MIN PRN Hypoglycemia Protocol Famotidine 10 mg 07/27/21 10:00 08/03/21 08:59 Famotidine 10 Mg Tab FEEDTUBE 10 mg BID BLANCA Administration Heparin Sodium (Porcine) 5,000 unit 07/25/21 16:00 08/03/21 08:59 Heparin 5,000 Unit/1 Ml Vial SUB-Q 5,000 unit Q12HR BLANCA Administration Hydralazine HCl 25 mg 07/30/21 14:00 08/03/21 05:57 Hydralazine 25 Mg Tab PO 25 mg Q8HR BLANCA Administration Hydralazine HCl 15 mg 07/30/21 07:44 Hydralazine 20 Mg/1 Ml Inj IV Q6H PRN Blood Pressure Insulin Human Regular 0 units 07/26/21 12:00 08/03/21 06:01 Insulin Regular, Human 100 Units/1 Ml SUB-Q Not Given Q6HR [facility] Protocol Labetalol HCl 100 mg 07/28/21 10:00 08/03/21 08:59 Labetalol 100 Mg Tab FEEDTUBE 100 mg BID BLANCA Administration Ondansetron HCl 4 mg 07/25/21 16:00 Ondansetron 4 Mg/2 Ml Inj IV Q8H PRN Nausea And Vomiting Oxycodone/Acetaminophen 1 tab 07/27/21 12:27 08/01/21 18:54 Oxycodone /Acetaminophen 5-325mg Tab PO 1 tab Q6H PRN Administration Pain, Moderate (4-6) Polyethylene Glycol 17 gm 07/26/21 17:04 Polyethylene Glycol 3350 17 Gm Powder PO QDAY PRN Constipation Senna/Docusate Sodium 1 tab 07/26/21 22:00 08/02/21 22:18 Sennosides/Docusate Sodium 8.6/50 Mg Tab PO 1 tab QHS BLANCA Administration Simple Syrup 15 ml 07/26/21 14:56 Simple Syrup 15 Ml FEEDTUBE PRN PRN Hypoglycemia Simple Syrup 30 ml 07/26/21 14:56 Simple Syrup 15 Ml FEEDTUBE PRN PRN Hypoglycemia Sodium Bicarbonate 325 mg 07/26/21 14:56 Sodium Bicarbonate 325 Mg Tab FEEDTUBE PRN PRN For Clogged Feeding Tube Sodium Chloride 10 ml 07/25/21 22:00 08/03/21 08:59 Sodium Chloride 0.9% 10 Ml Flush Syringe IV 10 ml BID BLANCA Administration Sodium Chloride 10 ml 07/25/21 16:00 07/26/21 00:08 Sodium Chloride 0.9% 10 Ml Flush Syringe IV 10 ml PRN PRN Administration LINE FLUSH
[2021-08-03] MEDS: SENNOSIDES/DOCUSATE SODIUM 8.6/50 MG TAB PO SCH (21:44)
[2021-08-03] MEDS: ACETAMINOPHEN 325 MG TAB PO PRN (21:44)
[2021-08-04 05:53] LABS: Hematocrit 34.2 % (35.5-45.6); Hemoglobin 11.3 gm/dl (11.8-15.2); Mean Corpuscular HGB Conc 33 % (32-34); Mean Corpuscular Volume 84 fl (84-94); Platelet Count 287 K/mm3 (140-440); Red Blood Count 4.06 M/mm3 (3.65-5.03); Red Cell Distribution Width 17.2 % (13.2-15.2)
[2021-08-04] MEDS: INSULIN REGULAR, HUMAN 100 UNITS/1 ML SUB-Q SCH ×4 (06:00→17:42)
[2021-08-04] MEDS: hydrALAZINE 25 MG TAB PO SCH ×3 (06:00→22:03)
[2021-08-04 06:39] LABS: Basophils % (Manual) 0 % (0.0-1.8); Total Cells Counted 100
[2021-08-04 06:40] LABS: Hypochromasia Few; Platelet Estimate Consistent w Auto; RBC Morphology Normal
[2021-08-04] MEDS: IPRATROPIUM/ALBUTEROL SULFATE 3 ML AMPUL.NEB IH SCH ×3 (09:03→19:28)
[2021-08-04] MEDS: HEPARIN 5,000 UNIT/1 ML VIAL SUB-Q SCH ×2 (09:05→22:04)
[2021-08-04] MEDS: amLODIPine 5 MG TAB FEEDTUBE SCH (09:05)
[2021-08-04] MEDS: FAMOTIDINE 10 MG TAB FEEDTUBE SCH ×2 (09:05→22:03)
--- NOTE | 2021-08-04 10:23 | Progress Note ---
Assessment and Plan Assessment and plan: This is a 61-year-old male who is a resident of a halfway facility with chronic hypoxic respiratory failure s/p trach with vent dependency, recent COVID-19 infection, ischemic cardiomyopathy, type 2 diabetes mellitus, obesity who presented to the emergency department on 07/25 via EMS with chief complaints of respiratory distress from his usp. In the emergency department patient was placed on the ventilator as he was tachypneic, dyspneic and did not improve after suctioning. Work-up in the emergency department revealed lactic acidosis, leukocytosis and CXR revealed possible retrocardiac pneumonia and started on antibiotics for HAP. Patient was admitted to the hospitalist service with consults to CCM with acute on chronic respiratory failure and HAP. Assessment and plan: This is a 61 year old male from a SNF with chronic hypoxic resp failure s/p t kaia, recent COVID 19 infection, ischemic cardiomyopathy IDDM, obesity admitted with acute on chronic resp failure, HAP, hyperkalemia, and lactic acidosis. Neuro: NAD -p.o. oxycodone prn -Reorientation as needed -Maintain sleep-wake cycle -CT head continued mild microvascular angiopathy without clear CT evidence of acute intercranial hemorrhage Cardiac: h/o HTN -Cardiology consulted, appreciate recommendations -Blood pressure monitoring per protocol -03/09/21 Echocardiogram LVEF 60-65% -Amlodipine, Labetalol, hydralazine PO (titrate as tolerated) -Avoid ACEi or ARB in setting of MONIK Respiratory: Acute on chronic hypercapnic respiratory failure, s/p trach -CCM consulted, appreciate recommendations -T piece 35 % Fio2 -See RT notes for titration -Pulm hygiene -SPO2 monitoring GI: MO, moderate protein calorie malnutrition -24 hours + 398 mL -PPI -NTR consulted for tube feedings -s/p PEG tube in place -BR: Senokat S : Acute kidney injury (improving), h/o urinary retention -Nephrology consulted, appreciate recommendations -Renal ultrasound shows echogenic kidneys which can be seen with medical renal disease, no hydronephrosis -FeNa indicate prerenal -Monitor intake and output -Renally dose medications -Avoid nephrotoxic medications -Good catheter placed for urinary retention -Trend BMP ID: HAP (POA) -Infectious disease consulted, appreciate recommendations -COVID PCR (-) -MRSA PCR positive -07/25 BC x2 NGTD, UC NGTD -Antibiotic therapy with cefepime -f/u blood culture -Monitor WBC and temperature curve Endo: h/o DM -Avoid hypoglycemia -SSI -Accu-Cheks q. 6 Heme: Leukocytosis -Heparin subq -Trend CBC -Transfuse hemoglobin less than 7 -Monitor for signs of bleeding -SCDs to BLE while in bed Hospital course to date: 07/26: Stopped Solu-Medrol, given For hyperkalemia, started on tube feedings. Remains on fentanyl and Mucomyst 07/27: Renal indices increased, patient did receive Lasix x1 yesterday. Nephrology was consulted. Urine lites and bilateral renal ultrasound pending. Infectious disease consulted. Bladder scan performed and Good catheter placed. COVID 19 PCR negative 07/28: No acute events reported overnight, worsening renal function-nephrology is on the case. Continue with cefepime per ID. Vent changes per CCM. 07/29: Slight improvement to renal function tests, remains on assist control. No acute events reported overnight. 07/30: Patient has been on T-piece all night. Renal function continues slightly worse however patient is still creating urine. Possible transfer to floor or imcu. Per pt he is requesting transfer to another usp if needed on discharge. 07/31: IMCU currently. Resting comfortably. no complaints. ST/PT eval. Working with CM for placement back to LTAC. ID okay with discontinuing antibiotics. Discussed patient case with pulmonology as well Dr. Azul 08/01: Patient still requiring 8 L of O2 via T-piece. Case management working for possible placement at LTAC. ID discontinue antibiotics. Continue PMV trials as tolerated. 08/02/2021 Patient still requiring high flow oxygen 08/03/2021. Patient still requiring 8 L of O2 via T-piece. Continue PMV trials as tolerated. 08/04/2021. Patient still requiring large amounts of oxygen. Patient currently with 10 L O2 FiO2 40%. Continue to wean O2 as tolerated. Recheck chest x-ray History Interval history: No new issues overnight Hospitalist Physical - Constitutional Vitals: Temp Pulse Resp BP Pulse Ox 98.8 F 112 H 20 164/82 98 08/04/21 04:40 08/04/21 08:00 08/04/21 08:00 08/04/21 06:00 08/04/21 09:05 General appearance: Present: no acute distress, well-nourished - EENT Eyes: Present: PERRL, EOM intact ENT: hearing intact, clear oral mucosa, dentition normal - Neck Neck: Present: supple, normal ROM - Respiratory Respiratory effort: normal Respiratory: bilateral: CTA - Cardiovascular Rhythm: regular Heart Sounds: Present: S1 & S2. Absent: gallop, rub - Extremities Extremities: no ischemia, No edema, Full ROM - Abdominal General gastrointestinal: soft, non-tender, non-distended, normal bowel sounds - Integumentary Integumentary: Present: clear, warm, dry - Neurologic Neurologic: CNII-XII intact, moves all extremities HEART Score - HEART Score Troponin: Troponin T < 0.010 ng/mL (0.00-0.029) 07/25/21 Unknown Results - Labs CBC & Chem 7: 08/04/21 05:15 08/04/21 05:15 Labs: Laboratory Last Values WBC 6.1 K/mm3 (4.5-11.0) 08/04/21 05:15 RBC 4.06 M/mm3 (3.65-5.03) 08/04/21 05:15 Hgb 11.3 gm/dl (11.8-15.2) L 08/04/21 05:15 Hct 34.2 % (35.5-45.6) L 08/04/21 05:15 MCV 84 fl (84-94) 08/04/21 05:15 MCH 28 pg (28-32) 08/04/21 05:15 MCHC 33 % (32-34) 08/04/21 05:15 RDW 17.2 % (13.2-15.2) H 08/04/21 05:15 Plt Count 287 K/mm3 (140-440) 08/04/21 05:15 [place]ack[place] % (Auto) Contact Printer Dry Film 08/04/21 05:15 Lymph # (Auto) Contact Printer Dry Film 07/25/21 Unknown Add Manual Diff Complete 08/04/21 05:15 Total Counted 100 08/04/21 05:15 Seg Neuts % (Manual) 52.0 % (40.0-70.0) 08/04/21 05:15 Band Neutrophils % 0 % 08/04/21 05:15 Lymphocytes % (Manual) 35.0 % (13.4-35.0) 08/04/21 05:15 Reactive Lymphs % (Man) 0 % 08/04/21 05:15 Monocytes % (Manual) 10.0 % (0.0-7.3) H 08/04/21 05:15 Eosinophils % (Manual) 3.0 % (0.0-4.3) 08/04/21 05:15 Basophils % (Manual) 0 % (0.0-1.8) 08/04/21 05:15 Metamyelocytes % 0 % 08/04/21 05:15 Myelocytes % 0 % 08/04/21 05:15 Promyelocytes % 0 % 08/04/21 05:15 Blast Cells % 0 % 08/04/21 05:15 Nucleated RBC % Not Reportable 08/04/21 05:15 Seg Neutrophils # Man 3.2 K/mm3 (1.8-7.7) 08/04/21 05:15 Band Neutrophils # 0.0 K/mm3 08/04/21 05:15 Lymphocytes # (Manual) 2.1 K/mm3 (1.2-5.4) 08/04/21 05:15 Abs React Lymphs (Man) 0.0 K/mm3 08/04/21 05:15 Monocytes # (Manual) 0.6 K/mm3 (0.0-0.8) 08/04/21 05:15 Eosinophils # (Manual) 0.2 K/mm3 (0.0-0.4) 08/04/21 05:15 Basophils # (Manual) 0.0 K/mm3 (0.0-0.1) 08/04/21 05:15 Metamyelocytes # 0.0 K/mm3 08/04/21 05:15 Myelocytes # 0.0 K/mm3 08/04/21 05:15 Promyelocytes # 0.0 K/mm3 08/04/21 05:15 Blast Cells # 0.0 K/mm3 08/04/21 05:15 WBC Morphology Not Reportable 08/04/21 05:15 Hypersegmented Neuts Not Reportable 08/04/21 05:15 Hyposegmented Neuts Not Reportable 08/04/21 05:15 Hypogranular Neuts Not Reportable 08/04/21 05:15 Smudge Cells Not Reportable 08/04/21 05:15 Toxic Granulation Not Reportable 08/04/21 05:15 Toxic Vacuolation Not Reportable 08/04/21 05:15 Dohle Bodies Not Reportable 08/04/21 05:15 Pelger-Huet Anomaly Not Reportable 08/04/21 05:15 Mely Rods Not Reportable 08/04/21 05:15 Platelet Estimate Consistent w auto 08/04/21 05:15 Clumped Platelets Not Reportable 08/04/21 05:15 Plt Clumps, EDTA Not Reportable 08/04/21 05:15 Large Platelets Not Reportable 08/04/21 05:15 Giant Platelets Not Reportable 08/04/21 05:15 Platelet Satelliting Not Reportable 08/04/21 05:15 Plt Morphology Comment Not Reportable 08/04/21 05:15 RBC Morphology Normal 08/04/21 05:15 Dimorphic RBCs Not Reportable 08/04/21 05:15 Polychromasia Not Reportable 08/04/21 05:15 Hypochromasia Few 08/04/21 05:15 Poikilocytosis Not Reportable 08/04/21 05:15 Anisocytosis Not Reportable 08/04/21 05:15 Microcytosis Not Reportable 08/04/21 05:15 Macrocytosis Not Reportable 08/04/21 05:15 Spherocytes Not Reportable 08/04/21 05:15 Pappenheimer Bodies Not Reportable 08/04/21 05:15 Sickle Cells Not Reportable 08/04/21 05:15 Target Cells Not Reportable 08/04/21 05:15 Tear Drop Cells Not Reportable 08/04/21 05:15 Ovalocytes Not Reportable 08/04/21 05:15 Helmet Cells Not Reportable 08/04/21 05:15 [place] Bodies Not Reportable 08/04/21 05:15 [place] Rings Not Reportable 08/04/21 05:15 Shama Cells Not Reportable 08/04/21 05:15 Bite Cells Not Reportable 08/04/21 05:15 Crenated Cell Not Reportable 08/04/21 05:15 Elliptocytes Not Reportable 08/04/21 05:15 Acanthocytes (Spur) Not Reportable 08/04/21 05:15 Rouleaux Not Reportable 08/04/21 05:15 Hemoglobin C Crystals Not Reportable 08/04/21 05:15 Schistocytes Not Reportable 08/04/21 05:15 Malaria parasites Not Reportable 08/04/21 05:15 Shaheen Bodies Not Reportable 08/04/21 05:15 Hem Pathologist Commnt No 08/04/21 05:15 ABG pH 7.449 pH Units (7.350-7.450) 07/29/21 20:45 ABG pCO2 51.3 mm Hg 07/29/21 20:45 ABG pO2 85.8 mm Hg (80.0-90.0) 07/29/21 20:45 ABG HCO3 34.7 mmol/L (20.0-26.0) H 07/29/21 20:45 ABG O2 Saturation 97.0 % (95.0-99.0) 07/29/21 20:45 ABG O2 Content 15.7 (0.0-44) 07/29/21 20:45 ABG Base Excess 9.3 mmol/L (-2.0-3.0) H 07/29/21 20:45 ABG Hemoglobin 11.7 gm/dl (14.0-18.0) L 07/29/21 20:45 ABG Carboxyhemoglobin 1.2 % (0.0-5.0) 07/29/21 20:45 ABG Methemoglobin 0.6 % (0.0-1.5) 07/29/21 20:45 Oxyhemoglobin 95.2 % (95.0-99.0) 07/29/21 20:45 FiO2 35 % 07/29/21 20:45 Sodium 142 mmol/L (137-145) 08/04/21 05:15 Potassium 4.3 mmol/L (3.6-5.0) 08/04/21 05:15 Chloride 102.5 mmol/L (98-107) 08/04/21 05:15 Carbon Dioxide 30 mmol/L (22-30) 08/04/21 05:15 Anion Gap 14 mmol/L 08/04/21 05:15 BUN 29 mg/dL (9-20) H 08/04/21 05:15 Creatinine 1.9 mg/dL (0.8-1.3) H 08/04/21 05:15 Estimated GFR 36 ml/min 08/04/21 05:15 BUN/Creatinine Ratio 15 % 08/04/21 05:15 Glucose 104 mg/dL (75-100) H 08/04/21 05:15 POC Glucose 109 mg/dL (70-105) H 08/04/21 07:31 Hemoglobin A1c 5.9 % (4-6) 07/26/21 03:50 Lactic Acid 4.90 mmol/L (0.7-2.0) H* 07/25/21 Unknown Calcium 10.0 mg/dL (8.4-10.2) 08/04/21 05:15 Total Bilirubin 0.20 mg/dL (0.1-1.2) 07/26/21 03:50 AST 19 units/L (5-40) 07/26/21 03:50 ALT 11 units/L (7-56) 07/26/21 03:50 Alkaline Phosphatase 73 units/L (35-129) 07/26/21 03:50 Troponin T < 0.010 ng/mL (0.00-0.029) 07/25/21 Unknown C-Reactive Protein 2.40 mg/dL (0.00-1.30) H 07/27/21 15:57 Serum Total Protein 6.4 g/dL (6.1-8.1) 07/28/21 04:32 Total Protein 8.2 g/dL (6.3-8.2) 07/26/21 03:50 Albumin 3.0 g/dL (3.8-4.8) L 07/28/21 04:32 Albumin/Globulin Ratio 0.8 % 07/26/21 03:50 Zxbax-0-Sfuodsidb 0.4 g/dL (0.2-0.3) H 07/28/21 04:32 Xexfx-4-Dqgdhefkn 0.7 g/dL (0.5-0.9) 07/28/21 04:32 Beta Globulins 0.4 g/dL (0.2-0.5) 07/28/21 04:32 Gamma Globulins 1.5 g/dL (0.8-1.7) 07/28/21 04:32 Abnorm Protein Band 1 see below 07/28/21 04:32 PEP Interpretation see below H 07/28/21 04:32 Procalcitonin 0.77 ng/mL (<0.15) 07/27/21 15:57 Urine Color Yellow (Yellow) 07/25/21 11:19 Urine Turbidity Cloudy (Clear) 07/25/21 11:19 Urine pH 6.0 (5.0-7.0) 07/25/21 11:19 Ur Specific [place] 1.015 (1.003-1.030) 07/25/21 11:19 Urine Protein >500 mg/dL (Negative) 07/25/21 11:19 Urine Glucose (UA) 150 mg/dL (Negative) 07/25/21 11:19 Urine Ketones Neg mg/dL (Negative) 07/25/21 11:19 Urine Blood Neg (Negative) 07/25/21 11:19 Urine Nitrite Neg (Negative) 07/25/21 11:19 Urine Bilirubin Neg (Negative) 07/25/21 11:19 Urine Urobilinogen < 2.0 mg/dL (<2.0) 07/25/21 11:19 Ur Leukocyte Esterase Neg (Negative) 07/25/21 11:19 Urine WBC (Auto) 26.0 /HPF (0.0-6.0) H 07/25/21 11:19 Urine RBC (Auto) 53.0 /HPF (0.0-6.0) 07/25/21 11:19 U Epithel Cells (Auto) 7.0 /HPF (0-13.0) 07/25/21 11:19 Urine Bacteria (Auto) 4+ /HPF (Negative) 07/25/21 11:19 Hyaline Casts 21 /LPF 07/25/21 11:19 Urine Mucus Few /HPF 07/25/21 11:19 Urine Yeast (Budding) 2+ /HPF 07/25/21 11:19 Urine Sperm 3+ /HPF ([employer] OPERATOR) 07/25/21 11:19 Urine Eosinophils None seen (None Seen) 07/27/21 17:45 Urine Creatinine 105.6 mg/dL (0.1-20.0) H 07/27/21 17:45 Urine Creatinine 106.0 mg/dL (0.1-20.0) H 07/27/21 17:45 Protein/Creatinin Ratio 0.28 07/27/21 17:45 Urine Sodium 46 mmol/L 07/27/21 17:45 Urine Total Protein 30 mg/dL (5-11.8) H 07/27/21 17:45 Nasal Screen MRSA (PCR) Positive (Negative) 07/26/21 16:30 PUMA Screen Negative (Negative) 07/27/21 18:17 Proteinase 3 (PR3) Ab <1.0 AI (<1.0) 07/27/21 18:17 Myeloperoxidase Ab <1.0 AI (<1.0) 07/27/21 18:17 Double Strand DNA Ab 1 IU/mL (<=4) 07/27/21 18:17 Complement C3 149 mg/dL (82-185) 07/27/21 18:17 Complement C4 48 mg/dL (15-53) 07/27/21 18:17 Coronavirus (PCR) Negative (Negative) 07/27/21 09:00 SARS-CoV-2 (PCR) Negative (Negative) 07/31/21 13:05 Hepatitis A IgM Ab Non-reactive (NonReactive) 07/27/21 18:17 Hep Bs Antigen Non-reactive (Negative) 07/27/21 18:17 Hep B Core IgM Ab Non-reactive (NonReactive) 07/27/21 18:17 Hepatitis C Antibody Non-reactive (NonReactive) 07/27/21 18:17 Good/IV: Voiding Method Urinal Active Medications - Current Medications Current Medications: Generic Name Dose Route Start Last Admin Trade Name Freq PRN Reason Stop Dose Admin Acetaminophen 650 mg 07/25/21 16:00 08/03/21 21:44 Acetaminophen 325 Mg Tab PO 650 mg Q4H PRN Administration Pain MILD(1-3)/Fever >100.5/RAYO Albuterol/Ipratropium 1 ampul 08/03/21 14:00 08/04/21 09:03 Ipratropium/Albuterol Sulfate 3 Ml Ampul.Neb IH 1 ampul TIDRT BLANCA Administration Amlodipine Besylate 10 mg 07/28/21 10:00 08/04/21 09:05 Amlodipine 5 Mg Tab FEEDTUBE 10 mg QDAY BLANCA Administration Lipase/Protease/Amylase 1 each 07/26/21 14:56 Lipase 10,500/Protease 25,000/Amylase 43,750 (Units) Dr Zambrano FEEDTUBE PRN PRN For Clogged Feeding Tube Dextrose 50 ml 07/26/21 12:22 Dextrose 50% In Water (25gm) 50 Ml Syringe IV Q30MIN PRN Hypoglycemia Protocol Famotidine 10 mg 07/27/21 10:00 08/04/21 09:05 Famotidine 10 Mg Tab FEEDTUBE 10 mg BID BLANCA Administration Heparin Sodium (Porcine) 5,000 unit 07/25/21 16:00 08/04/21 09:05 Heparin 5,000 Unit/1 Ml Vial SUB-Q 5,000 unit Q12HR BLANCA Administration Hydralazine HCl 25 mg 07/30/21 14:00 08/04/21 06:00 Hydralazine 25 Mg Tab PO 25 mg Q8HR BLANCA Administration Hydralazine HCl 15 mg 07/30/21 07:44 Hydralazine 20 Mg/1 Ml Inj IV Q6H PRN Blood Pressure Insulin Human Regular 0 units 07/26/21 12:00 08/04/21 06:00 Insulin Regular, Human 100 Units/1 Ml SUB-Q Not Given Q6HR [facility] Protocol Labetalol HCl 100 mg 07/28/21 10:00 08/04/21 09:05 Labetalol 100 Mg Tab FEEDTUBE 100 mg BID BLANCA Administration Ondansetron HCl 4 mg 07/25/21 16:00 Ondansetron 4 Mg/2 Ml Inj IV Q8H PRN Nausea And Vomiting Oxycodone/Acetaminophen 1 tab 07/27/21 12:27 08/01/21 18:54 Oxycodone /Acetaminophen 5-325mg Tab PO 1 tab Q6H PRN Administration Pain, Moderate (4-6) Polyethylene Glycol 17 gm 07/26/21 17:04 Polyethylene Glycol 3350 17 Gm Powder PO QDAY PRN Constipation Senna/Docusate Sodium 1 tab 07/26/21 22:00 08/03/21 21:44 Sennosides/Docusate Sodium 8.6/50 Mg Tab PO 1 tab QHS BLANCA Administration Simple Syrup 15 ml 07/26/21 14:56 Simple Syrup 15 Ml FEEDTUBE PRN PRN Hypoglycemia Simple Syrup 30 ml 07/26/21 14:56 Simple Syrup 15 Ml FEEDTUBE PRN PRN Hypoglycemia Sodium Bicarbonate 325 mg 07/26/21 14:56 Sodium Bicarbonate 325 Mg Tab FEEDTUBE PRN PRN For Clogged Feeding Tube Sodium Chloride 10 ml 07/25/21 22:00 08/04/21 09:06 Sodium Chloride 0.9% 10 Ml Flush Syringe IV 10 ml BID BLANCA Administration Sodium Chloride 10 ml 07/25/21 16:00 07/26/21 00:08 Sodium Chloride 0.9% 10 Ml Flush Syringe IV 10 ml PRN PRN Administration LINE FLUSH Nutrition/Malnutrition Assess - Dietary Evaluation Nutrition/Malnutrition Findings: Nutrition Notes Start: 07/26/21 14:26 Freq: Status: Active Protocol: Document 07/31/21 14:46 BRIAN (Rec: 07/31/21 14:52 BRIAN [id number]) Nutrition Notes Initial or Follow up Reassessment Current Diagnosis Acute Kidney Injury,Diabetes, Hypertension,Respiratory Failure Other Pertinent Diagnosis Pneu Current Diet TF - Glucerna 1.2 at 55ml/hr Labs/Tests BUN 30 Cr 2.1 Pertinent Medications Reviewed Height 6 ft Weight 110 kg Unity Body Weight (kg) 80.90 BMI 32.8 Weight change and time frame Wt change noted Weight Status Obese Subjective/Other Information Pt now on T-piece with 35% FiO2. Per RN, he is tolerating TF at goal rate of 55ml/hr. Per nephrology note on yesterday, no need for dialysis at this time. Percent of energy/protein needs met: 68% energy 100% pro Burn Absent Trauma Absent #1 Nutrition Diagnosis Swallowing difficulty Diagnosis Progress(for reassessment Continues documentation) Is patient on ventilator? No Is Patient Ambulatory and/or Out of Bed No REE-(Gallia-St. Jeor-confined to bed) [phone] Calculation Used for Recommendations 65-70% REE Additional Notes Energy needs: 0642-1915 kcal/ day Pro needs 0.8-1.2g/kg adjBW: 76-115g/day Fluid needs 1ml/kcal Nutrition Intervention Nutrition Support: Continue Glucerna 1.2 at 55ml/ hr with 85ml water flush q4h. Kcal 1,584 Protein (gm) 79 Carbohydrates (gm) 151 Fat (gm) 79 Fluid (mL) 1,063 Fiber (gm) 21 Goal #1 TF tolerance Goal #2 TF to meet 65-70% energy and at least 75% pro needs Follow-Up By: 08/07/21 Additional Comments F/U: stable TF, wt, renal function
--- NOTE | 2021-08-04 10:24 | Progress Note ---
Subjective Principal diagnosis: Ac and ch hypoxemic and hypercapnic Resp Failure; HCAP; AE- CHF; s/p Trach Interval history: Assessment and plan #Chronic kidney disease, renal function remained stable at this time, hemoglobin 11.2 creatinine is currently 1.9, slight improvement, felt to be in stage IIIb chronic kidney disease for now needs ongoing monitoring and follow-up, patient has been adequately counseled educated regarding the staging of chronic kidney disease and need to follow-up in the outpatient setting, he is at risk for progression however in the absence of proper renal care #Low-grade proteinuria 300 mg by ratio #History of COVID-19 infection, at risk for cardiorenal injury, has had hypoxic variety of respiratory failure, #Avoid any form of ODALYS ARB or diuretics for now, no nonsteroidal drug must follow-up proper renal diet patient seems to be motivated, Patient was adequately counseled and educated regarding all the renal related issues, relevant renal related labs were also discussed and all questions were answered If there are any renal related issues in regards to this patient please feel free to reach out without any hesitation at [phone] We'll continue to follow and make recommendation for renal standpoint. Progress note by: Florian Pineda MD [address] [place] [id number] Tele [phone] [email or web address] Patient was seen today for follow-up of multiple renal related issues No complaints of any chest pain pressure or shortness of breath Interdisciplinary notes that also reviewed Events of 24 hours vitals labs intake output medications were reviewed Past medical history: Reviewed Family history: Reviewed Social history: Reviewed Allergies: Reviewed Physical examination: Vitals: Reviewed HEENT: No pallor or icterus oral mucosa moist Neck: Supple no JVD no thyromegaly Patient has tracheotomy Chest: Bilateral few basilar crackles Heart: Regular rate and rhythm S1-S2 heard no S3-S4 Abdomen: Soft nontender no voluntary guarding rigidity rebound Extremity: Dry skin less than 1+ peripheral edema Psychiatric: No evidence of agitation and aggression noted Dermatology: No petechial rashes Labs and x-rays: Reviewed from today Objective - Vital Signs Vital signs: Vital Signs - 12hr 08/04/21 08/04/21 08/04/21 00:00 04:40 06:00 Temperature 98.8 F Pulse Rate 90 90 Pulse Rate [ Bilateral Throughout] Respiratory 20 Rate Respiratory Rate [Bilateral Throughout] Blood Pressure 164/82 164/82 O2 Sat by Pulse 99 Oximetry O2 Sat by Pulse 98 Oximetry [ Assessment] 08/04/21 08/04/21 08:00 09:05 Temperature Pulse Rate Pulse Rate [ 112 H Bilateral Throughout] Respiratory Rate Respiratory 20 Rate [Bilateral Throughout] Blood Pressure O2 Sat by Pulse 98 Oximetry O2 Sat by Pulse 98 Oximetry [ Assessment] - Lab 08/04/21 05:15 08/04/21 05:15 Most recent lab results ABG pH 7.449 pH Units (7.350-7.450) 07/29/21 20:45 ABG pCO2 51.3 mm Hg 07/29/21 20:45 ABG pO2 85.8 mm Hg (80.0-90.0) 07/29/21 20:45 ABG HCO3 34.7 mmol/L (20.0-26.0) H 07/29/21 20:45 ABG O2 Saturation 97.0 % (95.0-99.0) 07/29/21 20:45 Calcium 10.0 mg/dL (8.4-10.2) 08/04/21 05:15 Urine Creatinine 105.6 mg/dL (0.1-20.0) H 07/27/21 17:45 Urine Creatinine 106.0 mg/dL (0.1-20.0) H 07/27/21 17:45 Urine Sodium 46 mmol/L 07/27/21 17:45 Urine Total Protein 30 mg/dL (5-11.8) H 07/27/21 17:45 Medications & Allergies - Medications Allergies/Adverse Reactions: Allergies No Known Allergies Allergy (Verified 07/25/21 11:02) Home Medications: Home Medications Medication Instructions Recorded Confirmed Last Taken Type No Known Home Medications [No 03/11/21 08/02/21 Unknown History Reported Home Medications] Apixaban [Eliquis] 5 mg FEEDTUBE Q12HR 30 Days #60 05/02/21 08/02/21 Unknown Rx tablet Doxazosin [Cardura] 1 mg FEEDTUBE BID 30 Days #60 05/02/21 08/02/21 Unknown Rx tablet Famotidine [Pepcid] 20 mg FEEDTUBE BID 30 Days #60 05/02/21 08/02/21 Unknown Rx tablet Glycopyrrolate 2 mg PO TID 30 Days #90 tablet 05/02/21 08/02/21 Unknown Rx Insulin Glargine [Lantus VIAL] 18 units SUB-Q QHS 30 Days #2 vial 05/02/21 08/02/21 Unknown Rx Metoprolol [Lopressor TAB] 12.5 mg FEEDTUBE BID 30 Days #60 05/02/21 08/02/21 Unknown Rx tablet amLODIPine 10 mg FEEDTUBE DAILY 30 Days #30 05/02/21 08/02/21 Unknown Rx tablet cephALEXin [Keflex] 500 mg PO Q8HR 2 Days #6 cap 05/02/21 08/02/21 Unknown Rx hydrALAZINE [Apresoline TAB] 50 mg FEEDTUBE Q8HR 30 Days #90 05/02/21 08/02/21 Unknown Rx tablet Active Medications: Generic Name Dose Route Start Last Admin Trade Name Freq PRN Reason Stop Dose Admin Acetaminophen 650 mg 07/25/21 16:00 08/03/21 21:44 Acetaminophen 325 Mg Tab PO 650 mg Q4H PRN Administration Pain MILD(1-3)/Fever >100.5/RAYO Albuterol/Ipratropium 1 ampul 08/03/21 14:00 08/04/21 09:03 Ipratropium/Albuterol Sulfate 3 Ml Ampul.Neb IH 1 ampul TIDRT BLANCA Administration Amlodipine Besylate 10 mg 07/28/21 10:00 08/04/21 09:05 Amlodipine 5 Mg Tab FEEDTUBE 10 mg QDAY BLANAC Administration Lipase/Protease/Amylase 1 each 07/26/21 14:56 Lipase 10,500/Protease 25,000/Amylase 43,750 (Units) Dr Zambrano FEEDTUBE PRN PRN For Clogged Feeding Tube Dextrose 50 ml 07/26/21 12:22 Dextrose 50% In Water (25gm) 50 Ml Syringe IV Q30MIN PRN Hypoglycemia Protocol Famotidine 10 mg 07/27/21 10:00 08/04/21 09:05 Famotidine 10 Mg Tab FEEDTUBE 10 mg BID BLANCA Administration Heparin Sodium (Porcine) 5,000 unit 07/25/21 16:00 08/04/21 09:05 Heparin 5,000 Unit/1 Ml Vial SUB-Q 5,000 unit Q12HR BLANCA Administration Hydralazine HCl 25 mg 07/30/21 14:00 08/04/21 06:00 Hydralazine 25 Mg Tab PO 25 mg Q8HR BLANCA Administration Hydralazine HCl 15 mg 07/30/21 07:44 Hydralazine 20 Mg/1 Ml Inj IV Q6H PRN Blood Pressure Insulin Human Regular 0 units 07/26/21 12:00 08/04/21 06:00 Insulin Regular, Human 100 Units/1 Ml SUB-Q Not Given Q6HR [facility] Protocol Labetalol HCl 100 mg 07/28/21 10:00 08/04/21 09:05 Labetalol 100 Mg Tab FEEDTUBE 100 mg BID BLANCA Administration Ondansetron HCl 4 mg 07/25/21 16:00 Ondansetron 4 Mg/2 Ml Inj IV Q8H PRN Nausea And Vomiting Oxycodone/Acetaminophen 1 tab 07/27/21 12:27 08/01/21 18:54 Oxycodone /Acetaminophen 5-325mg Tab PO 1 tab Q6H PRN Administration Pain, Moderate (4-6) Polyethylene Glycol 17 gm 07/26/21 17:04 Polyethylene Glycol 3350 17 Gm Powder PO QDAY PRN Constipation Senna/Docusate Sodium 1 tab 07/26/21 22:00 08/03/21 21:44 Sennosides/Docusate Sodium 8.6/50 Mg Tab PO 1 tab QHS BLANCA Administration Simple Syrup 15 ml 07/26/21 14:56 Simple Syrup 15 Ml FEEDTUBE PRN PRN Hypoglycemia Simple Syrup 30 ml 07/26/21 14:56 Simple Syrup 15 Ml FEEDTUBE PRN PRN Hypoglycemia Sodium Bicarbonate 325 mg 07/26/21 14:56 Sodium Bicarbonate 325 Mg Tab FEEDTUBE PRN PRN For Clogged Feeding Tube Sodium Chloride 10 ml 07/25/21 22:00 08/04/21 09:06 Sodium Chloride 0.9% 10 Ml Flush Syringe IV 10 ml BID BLANCA Administration Sodium Chloride 10 ml 07/25/21 16:00 07/26/21 00:08 Sodium Chloride 0.9% 10 Ml Flush Syringe IV 10 ml PRN PRN Administration LINE FLUSH
--- NOTE | 2021-08-04 12:04 | XRay Report ---
CHEST 1 VIEW 08/04/2021 9:45 AM INDICATION / CLINICAL INFORMATION: hypoxia. COMPARISON: 07/28/2021 FINDINGS: SUPPORT DEVICES: Tracheostomy remains in adequate position. HEART / MEDIASTINUM: No significant abnormality. LUNGS / PLEURA: No significant pulmonary or pleural abnormality. No pneumothorax. ADDITIONAL FINDINGS: No significant additional findings. IMPRESSION: 1. No acute findings. Signer Name: Hemanth Boyd Jr, MD Signed: 08/04/2021 11:57 AM Workstation Name: [id number]
--- NOTE | 2021-08-04 14:40 | Progress Note ---
Assessment and Plan Acute and chronic Respiratory Failure with Hypoxia and Hypercapnia 2/2 HCAP and CHF exacerbation s/p MVS Tracheostomy status Oropharyngeal dysphagia s/p PEG h/o Ischemic cardiomyopathy HCAP AE-CHF exacerbation The patient is phonating around the tracheostomy. We can start PMV and capping trials. If he tolerates it , he will be a candidate for decannulation PT/OT, increase activity -Trach care, airway clearance, secretion management -Titrate supplemental oxygen to keep SpO2 89-90% -Bronchodilators -Start PMV trials as tolerated -Modified diet with aspiration precautions - continue contact isolation re: MRSA - continue bronchodilators with pulmonary hygiene per RT - continue accuchecks with glycemic control per SSI for target blood glucose of < 180 mg/dL; avoid hypoglycemia - avoid nephrotoxins, renally dose all medications - continue to avoid benzodiazepines, reduce the possibility of delirium - prn analgesia per pain score - Maintenance of sleep-wake cycle, avoid delirium - VTE prophylaxis - continue other care per attending / other consultants - discharge planning ongoing concurrently Subjective Date of service: 08/04/21 Principal diagnosis: Ac and ch hypoxemic and hypercapnic Resp Failure; HCAP; AE-CHF; s/p Trach Interval history: Patient is seen today for: Acute and chronic hypoxemic and hypercapnic Respiratory Failure; HCAP; AE-CHF; s/p Tracheostomy; H/O Ischemic cardiomyopathy Seen and examined at bedside; 24hour events reviewed; nursing and respiratory care staff consulted; no adverse overnight events reported to me; resting peacefully in bed;talking around trach; trach to ATC; tolerating a modified diet. Objective Vital Signs - 12hr 08/04/21 08/04/21 08/04/21 04:40 06:00 08:00 Temperature 98.8 F Pulse Rate 90 90 Pulse Rate [ 112 H Bilateral Throughout] Respiratory 20 Rate Respiratory 20 Rate [Bilateral Throughout] Blood Pressure 164/82 164/82 Blood Pressure [Left] O2 Sat by Pulse 99 Oximetry O2 Sat by Pulse 98 Oximetry [ Assessment] 08/04/21 08/04/21 08/04/21 09:05 11:11 11:13 Temperature 98.0 F 98.8 F Pulse Rate 91 H 90 Pulse Rate [ Bilateral Throughout] Respiratory 18 14 Rate Respiratory Rate [Bilateral Throughout] Blood Pressure 140/81 Blood Pressure 180/65 [Left] O2 Sat by Pulse 98 94 98 Oximetry O2 Sat by Pulse Oximetry [ Assessment] 08/04/21 14:36 Temperature Pulse Rate Pulse Rate [ 94 H Bilateral Throughout] Respiratory Rate Respiratory 18 Rate [Bilateral Throughout] Blood Pressure Blood Pressure [Left] O2 Sat by Pulse Oximetry O2 Sat by Pulse Oximetry [ Assessment] Constitutional: no acute distress, alert, other (atraumatic, normocephalic, trach to ATC) Eyes: non-icteric ENT: oropharynx moist, other (midline tracheostomy) Neck: supple, no lymphadenopathy, no JVD Effort: normal Ascultation: Bilateral: diminished breath sounds, wheezes, rhonchi (scant) Percussion: Bilateral: not dull Cardiovascular: regular rate and rhythm, other (S1,S2) Gastrointestinal: normoactive bowel sounds, soft, non-tender, non-distended (protuberant), other (PEG) Integumentary: normal Extremities: no cyanosis, pulses normal, no ischemia or petechiae, edema Neurologic: normal mental status, non-focal exam, pupils equal and round, CN II- XII normal, motor strength normal and, other (moves all extremities) Psychiatric: mood appropriate, affect normal CBC and BMP: 08/04/21 05:15 08/04/21 05:15 ABG, PT/INR, D-dimer: ABG ABG pH 7.449 pH Units (7.350-7.450) 07/29/21 20:45 ABG pCO2 51.3 mm Hg 07/29/21 20:45 ABG pO2 85.8 mm Hg (80.0-90.0) 07/29/21 20:45 ABG O2 Saturation 97.0 % (95.0-99.0) 07/29/21 20:45 Abnormal lab findings: Abnormal Labs 07/25/21 07/25/21 07/25/21 11:19 21:50 Unknown WBC 18.1 H Hgb Hct MCV MCH RDW 16.2 H Seg Neuts % (Manual) Lymphocytes % (Manual) Monocytes % (Manual) Seg Neutrophils # Man 12.1 H Lymphocytes # (Manual) ABG pH 6.917 L* ABG pO2 331.8 H ABG HCO3 39.3 H ABG O2 Saturation 99.4 H ABG Base Excess ABG Hemoglobin 12.1 L Oxyhemoglobin Sodium Potassium Chloride Carbon Dioxide BUN Creatinine Glucose POC Glucose Lactic Acid C-Reactive Protein Albumin Jmmmz-7-Ndwqmdccb PEP Interpretation Urine WBC (Auto) 26.0 H Urine Creatinine Urine Total Protein 07/25/21 07/25/21 07/25/21 Unknown Unknown Unknown WBC Hgb Hct MCV MCH RDW Seg Neuts % (Manual) Lymphocytes % (Manual) Monocytes % (Manual) Seg Neutrophils # Man Lymphocytes # (Manual) ABG pH 7.029 L* ABG pO2 97.5 H ABG HCO3 37.2 H ABG O2 Saturation 93.5 L ABG Base Excess ABG Hemoglobin 12.7 L Oxyhemoglobin 91.7 L Sodium 129 L Potassium Chloride 90.1 L Carbon Dioxide BUN 8 L Creatinine Glucose 258 H POC Glucose Lactic Acid 4.90 H* C-Reactive Protein Albumin 3.8 L Tqnai-8-Qsxzfojji PEP Interpretation Urine WBC (Auto) Urine Creatinine Urine Total Protein 07/25/21 07/26/21 07/26/21 Unknown 00:10 03:50 WBC 15.5 H Hgb Hct MCV MCH RDW 15.4 H Seg Neuts % (Manual) 96.0 H Lymphocytes % (Manual) 3.0 L Monocytes % (Manual) Seg Neutrophils # Man 14.9 H Lymphocytes # (Manual) 0.5 L ABG pH 7.217 L ABG pO2 162.9 H ABG HCO3 34.3 H ABG O2 Saturation ABG Base Excess 4.0 H ABG Hemoglobin 12.5 L Oxyhemoglobin Sodium Potassium Chloride Carbon Dioxide BUN Creatinine Glucose POC Glucose 158 H Lactic Acid C-Reactive Protein Albumin Zssua-9-Lewmzexvt PEP Interpretation Urine WBC (Auto) Urine Creatinine Urine Total Protein 07/26/21 07/26/21 07/26/21 03:50 04:30 07:44 WBC Hgb Hct MCV MCH RDW Seg Neuts % (Manual) Lymphocytes % (Manual) Monocytes % (Manual) Seg Neutrophils # Man Lymphocytes # (Manual) ABG pH 7.170 L* ABG pO2 65.5 L ABG HCO3 33.9 H ABG O2 Saturation ABG Base Excess ABG Hemoglobin 12.0 L Oxyhemoglobin 93.5 L Sodium 132 L Potassium 6.0 H D 5.6 H Chloride 93.2 L Carbon Dioxide BUN Creatinine Glucose 171 H POC Glucose Lactic Acid C-Reactive Protein Albumin 3.7 L Ghnjj-6-Ljsdcjtng PEP Interpretation Urine WBC (Auto) Urine Creatinine Urine Total Protein 07/26/21 07/26/21 07/27/21 12:34 17:18 04:54 WBC 11.9 H Hgb 11.1 L Hct 34.5 L MCV MCH 27 L RDW 15.5 H Seg Neuts % (Manual) Lymphocytes % (Manual) Monocytes % (Manual) Seg Neutrophils # Man Lymphocytes # (Manual) ABG pH 7.286 L ABG pO2 100.0 H ABG HCO3 31.4 H ABG O2 Saturation ABG Base Excess 3.2 H ABG Hemoglobin 11.8 L Oxyhemoglobin Sodium Potassium Chloride Carbon Dioxide BUN Creatinine Glucose POC Glucose 111 H Lactic Acid C-Reactive Protein Albumin Abiot-7-Pnvoknhiw PEP Interpretation Urine WBC (Auto) Urine Creatinine Urine Total Protein 07/27/21 07/27/21 07/27/21 04:54 10:30 15:57 WBC Hgb Hct MCV MCH RDW Seg Neuts % (Manual) Lymphocytes % (Manual) Monocytes % (Manual) Seg Neutrophils # Man Lymphocytes # (Manual) ABG pH ABG pO2 76.9 L ABG HCO3 30.2 H ABG O2 Saturation ABG Base Excess 3.9 H ABG Hemoglobin 11.2 L Oxyhemoglobin Sodium 136 L Potassium Chloride Carbon Dioxide BUN 37 H Creatinine 2.2 H D Glucose POC Glucose Lactic Acid C-Reactive Protein 2.40 H Albumin Lazsd-2-Eyiwblhwp PEP Interpretation Urine WBC (Auto) Urine Creatinine Urine Total Protein 07/27/21 07/27/21 07/27/21 17:45 17:45 17:52 WBC Hgb Hct MCV MCH RDW Seg Neuts % (Manual) Lymphocytes % (Manual) Monocytes % (Manual) Seg Neutrophils # Man Lymphocytes # (Manual) ABG pH ABG pO2 ABG HCO3 ABG O2 Saturation ABG Base Excess ABG Hemoglobin Oxyhemoglobin Sodium Potassium Chloride Carbon Dioxide BUN Creatinine Glucose POC Glucose 114 H Lactic Acid C-Reactive Protein Albumin Snjea-0-Nuerduccp PEP Interpretation Urine WBC (Auto) Urine Creatinine 106.0 H 105.6 H Urine Total Protein 30 H 07/28/21 07/28/21 07/28/21 04:32 04:32 04:32 WBC Hgb 11.0 L Hct 34.4 L MCV MCH 27 L RDW 16.0 H Seg Neuts % (Manual) Lymphocytes % (Manual) Monocytes % (Manual) Seg Neutrophils # Man Lymphocytes # (Manual) ABG pH ABG pO2 ABG HCO3 ABG O2 Saturation ABG Base Excess ABG Hemoglobin Oxyhemoglobin Sodium 135 L Potassium Chloride Carbon Dioxide BUN 40 H Creatinine 2.3 H Glucose 124 H POC Glucose Lactic Acid C-Reactive Protein Albumin 3.0 L Jojgi-0-Jgcvkyjtu 0.4 H PEP Interpretation see below H Urine WBC (Auto) Urine Creatinine Urine Total Protein 07/28/21 07/28/21 07/28/21 11:19 13:12 17:34 WBC Hgb Hct MCV MCH RDW Seg Neuts % (Manual) Lymphocytes % (Manual) Monocytes % (Manual) Seg Neutrophils # Man Lymphocytes # (Manual) ABG pH ABG pO2 103.7 H ABG HCO3 32.7 H ABG O2 Saturation ABG Base Excess 7.1 H ABG Hemoglobin 10.8 L Oxyhemoglobin Sodium Potassium Chloride Carbon Dioxide BUN Creatinine Glucose POC Glucose 117 H 124 H Lactic Acid C-Reactive Protein Albumin Wzvff-7-Xwzpatrkr PEP Interpretation Urine WBC (Auto) Urine Creatinine Urine Total Protein 07/28/21 07/29/21 07/29/21 23:54 05:09 05:39 WBC Hgb Hct MCV MCH RDW Seg Neuts % (Manual) Lymphocytes % (Manual) Monocytes % (Manual) Seg Neutrophils # Man Lymphocytes # (Manual) ABG pH ABG pO2 ABG HCO3 ABG O2 Saturation ABG Base Excess ABG Hemoglobin Oxyhemoglobin Sodium Potassium Chloride Carbon Dioxide 32 H BUN 34 H Creatinine 2.1 H Glucose 124 H POC Glucose 107 H 120 H Lactic Acid C-Reactive Protein Albumin Ccmop-5-Miortsvcw PEP Interpretation Urine WBC (Auto) Urine Creatinine Urine Total Protein 07/29/21 07/29/21 07/29/21 09:00 20:45 23:15 WBC Hgb Hct MCV MCH RDW Seg Neuts % (Manual) Lymphocytes % (Manual) Monocytes % (Manual) Seg Neutrophils # Man Lymphocytes # (Manual) ABG pH ABG pO2 131.5 H ABG HCO3 35.1 H 34.7 H ABG O2 Saturation ABG Base Excess 9.1 H 9.3 H ABG Hemoglobin 11.8 L 11.7 L Oxyhemoglobin Sodium Potassium Chloride Carbon Dioxide BUN Creatinine Glucose POC Glucose 114 H Lactic Acid C-Reactive Protein Albumin Vcafb-0-Qujlbxrhr PEP Interpretation Urine WBC (Auto) Urine Creatinine Urine Total Protein 07/30/21 07/30/21 07/30/21 04:19 04:19 05:25 WBC Hgb 10.9 L Hct 32.6 L MCV 83 L MCH RDW 16.2 H Seg Neuts % (Manual) Lymphocytes % (Manual) Monocytes % (Manual) Seg Neutrophils # Man Lymphocytes # (Manual) ABG pH ABG pO2 ABG HCO3 ABG O2 Saturation ABG Base Excess ABG Hemoglobin Oxyhemoglobin Sodium Potassium Chloride Carbon Dioxide 33 H BUN 32 H Creatinine 2.2 H Glucose 108 H POC Glucose 109 H Lactic Acid C-Reactive Protein Albumin Wenlz-0-Fucrhjjnv PEP Interpretation Urine WBC (Auto) Urine Creatinine Urine Total Protein 07/31/21 07/31/21 07/31/21 04:26 05:35 23:23 WBC Hgb Hct MCV MCH RDW Seg Neuts % (Manual) Lymphocytes % (Manual) Monocytes % (Manual) Seg Neutrophils # Man Lymphocytes # (Manual) ABG pH ABG pO2 ABG HCO3 ABG O2 Saturation ABG Base Excess ABG Hemoglobin Oxyhemoglobin Sodium Potassium Chloride Carbon Dioxide 32 H BUN 30 H Creatinine 2.1 H Glucose 108 H POC Glucose 124 H 116 H Lactic Acid C-Reactive Protein Albumin Ykxsc-5-Jcmqizepm PEP Interpretation Urine WBC (Auto) Urine Creatinine Urine Total Protein 08/01/21 08/01/21 08/01/21 05:42 11:49 16:42 WBC Hgb Hct MCV MCH RDW Seg Neuts % (Manual) Lymphocytes % (Manual) Monocytes % (Manual) Seg Neutrophils # Man Lymphocytes # (Manual) ABG pH ABG pO2 ABG HCO3 ABG O2 Saturation ABG Base Excess ABG Hemoglobin Oxyhemoglobin Sodium Potassium Chloride Carbon Dioxide 33 H BUN 29 H Creatinine 2.0 H Glucose 106 H POC Glucose 111 H 65 L Lactic Acid C-Reactive Protein Albumin Smihp-9-Yxgxpmktf PEP Interpretation Urine WBC (Auto) Urine Creatinine Urine Total Protein 08/03/21 08/03/21 08/04/21 00:07 12:26 05:15 WBC Hgb 11.3 L Hct 34.2 L MCV MCH RDW 17.2 H Seg Neuts % (Manual) Lymphocytes % (Manual) Monocytes % (Manual) 10.0 H Seg Neutrophils # Man Lymphocytes # (Manual) ABG pH ABG pO2 ABG HCO3 ABG O2 Saturation ABG Base Excess ABG Hemoglobin Oxyhemoglobin Sodium Potassium Chloride Carbon Dioxide BUN Creatinine Glucose POC Glucose 111 H 115 H Lactic Acid C-Reactive Protein Albumin Ylkdt-9-Iizieovzn PEP Interpretation Urine WBC (Auto) Urine Creatinine Urine Total Protein 08/04/21 08/04/21 05:15 07:31 WBC Hgb Hct MCV MCH RDW Seg Neuts % (Manual) Lymphocytes % (Manual) Monocytes % (Manual) Seg Neutrophils # Man Lymphocytes # (Manual) ABG pH ABG pO2 ABG HCO3 ABG O2 Saturation ABG Base Excess ABG Hemoglobin Oxyhemoglobin Sodium Potassium Chloride Carbon Dioxide BUN 29 H Creatinine 1.9 H Glucose 104 H POC Glucose 109 H Lactic Acid C-Reactive Protein Albumin Gyddj-9-Adozseehu PEP Interpretation Urine WBC (Auto) Urine Creatinine Urine Total Protein Allied health notes reviewed: RT
[2021-08-04] MEDS: SENNOSIDES/DOCUSATE SODIUM 8.6/50 MG TAB PO SCH (22:03)
[2021-08-05] MEDS: INSULIN REGULAR, HUMAN 100 UNITS/1 ML SUB-Q SCH ×4 (00:31→17:26)
[2021-08-05] MEDS: hydrALAZINE 25 MG TAB PO SCH ×3 (05:49→21:24)
[2021-08-05] MEDS: oxyCODONE /ACETAMINOPHEN 5-325MG TAB PO PRN (05:53)
[2021-08-05] MEDS: IPRATROPIUM/ALBUTEROL SULFATE 3 ML AMPUL.NEB IH SCH ×3 (07:46→20:16)
[2021-08-05] MEDS: amLODIPine 5 MG TAB FEEDTUBE SCH (09:04)
[2021-08-05] MEDS: HEPARIN 5,000 UNIT/1 ML VIAL SUB-Q SCH ×2 (09:04→21:24)
[2021-08-05] MEDS: FAMOTIDINE 10 MG TAB FEEDTUBE SCH ×2 (09:04→21:23)
--- NOTE | 2021-08-05 10:50 | Progress Note ---
Subjective Principal diagnosis: Ac and ch hypoxemic and hypercapnic Resp Failure; HCAP; AE- CHF; s/p Trach Interval history: Assessment and plan #Chronic kidney disease, As of today no new labs, renal function remained stable at this time, hemoglobin 11.2 creatinine is currently 1.9, slight improvement, He may have stage IIIb chronic kidney disease for now needs ongoing monitoring and follow-up, He has been adequately counseled educated regarding the staging of chronic kidney disease and need to follow-up in the outpatient setting, he is at risk for progression however in the absence of proper renal care #Low-grade proteinuria 300 mg by ratio #History of COVID-19 infection, at risk for cardiorenal injury, has had hypoxic variety of respiratory failure, #Avoid any form of ODALYS ARB or diuretics for now, no nonsteroidal drug must follow-up proper renal diet patient seems to be motivated, Patient was adequately counseled and educated regarding all the renal related issues, relevant renal related labs were also discussed and all questions were answered If there are any renal related issues in regards to this patient please feel free to reach out without any hesitation at [phone] We'll continue to follow and make recommendation for renal standpoint. Progress note by: Florian Pineda MD [address] [place] [id number] Tele [phone] [email or web address] [facility] Patient was seen today for follow-up of multiple renal related issues Interdisciplinary notes that also reviewed Events of 24 hours vitals labs intake output medications were reviewed Past medical history: Reviewed Family history: Reviewed Social history: Reviewed Allergies: Reviewed Physical examination: Vitals: Reviewed HEENT: No pallor or icterus oral mucosa moist Neck: Supple no JVD no thyromegaly Patient has tracheotomy Chest: Bilateral few basilar crackles Heart: Regular rate and rhythm S1-S2 heard no S3-S4 Abdomen: Soft nontender no voluntary guarding rigidity rebound Extremity: Dry skin less than 1+ peripheral edema Psychiatric: No evidence of agitation and aggression noted Dermatology: No petechial rashes Labs and x-rays: Reviewed from today Objective - Vital Signs Vital signs: Vital Signs - 12hr 08/05/21 08/05/21 08/05/21 04:05 04:11 05:49 Temperature 98.9 F Pulse Rate 91 H 91 H Pulse Rate [ Bilateral Throughout] Respiratory 20 Rate Respiratory Rate [Bilateral Throughout] Blood Pressure 167/91 167/91 O2 Sat by Pulse 97 Oximetry O2 Sat by Pulse 95 Oximetry [ Assessment] 08/05/21 08/05/21 07:14 07:46 Temperature Pulse Rate Pulse Rate [ 96 H Bilateral Throughout] Respiratory Rate Respiratory 18 Rate [Bilateral Throughout] Blood Pressure O2 Sat by Pulse 97 97 Oximetry O2 Sat by Pulse 97 Oximetry [ Assessment] - Lab 08/06/21 05:04 08/06/21 05:04 Most recent lab results ABG pH 7.449 pH Units (7.350-7.450) 07/29/21 20:45 ABG pCO2 51.3 mm Hg 07/29/21 20:45 ABG pO2 85.8 mm Hg (80.0-90.0) 07/29/21 20:45 ABG HCO3 34.7 mmol/L (20.0-26.0) H 07/29/21 20:45 ABG O2 Saturation 97.0 % (95.0-99.0) 07/29/21 20:45 Calcium 10.0 mg/dL (8.4-10.2) 08/04/21 05:15 Urine Creatinine 105.6 mg/dL (0.1-20.0) H 07/27/21 17:45 Urine Creatinine 106.0 mg/dL (0.1-20.0) H 07/27/21 17:45 Urine Sodium 46 mmol/L 07/27/21 17:45 Urine Total Protein 30 mg/dL (5-11.8) H 07/27/21 17:45 Medications & Allergies - Medications Allergies/Adverse Reactions: Allergies No Known Allergies Allergy (Verified 07/25/21 11:02) Home Medications: Home Medications Medication Instructions Recorded Confirmed Last Taken Type No Known Home Medications [No 03/11/21 08/02/21 Unknown History Reported Home Medications] Apixaban [Eliquis] 5 mg FEEDTUBE Q12HR 30 Days #60 05/02/21 08/02/21 Unknown Rx tablet Doxazosin [Cardura] 1 mg FEEDTUBE BID 30 Days #60 05/02/21 08/02/21 Unknown Rx tablet Famotidine [Pepcid] 20 mg FEEDTUBE BID 30 Days #60 05/02/21 08/02/21 Unknown Rx tablet Glycopyrrolate 2 mg PO TID 30 Days #90 tablet 05/02/21 08/02/21 Unknown Rx Insulin Glargine [Lantus VIAL] 18 units SUB-Q QHS 30 Days #2 vial 05/02/21 08/02/21 Unknown Rx Metoprolol [Lopressor TAB] 12.5 mg FEEDTUBE BID 30 Days #60 05/02/21 08/02/21 Unknown Rx tablet amLODIPine 10 mg FEEDTUBE DAILY 30 Days #30 05/02/21 08/02/21 Unknown Rx tablet cephALEXin [Keflex] 500 mg PO Q8HR 2 Days #6 cap 05/02/21 08/02/21 Unknown Rx hydrALAZINE [Apresoline TAB] 50 mg FEEDTUBE Q8HR 30 Days #90 05/02/21 08/02/21 Unknown Rx tablet Active Medications: Generic Name Dose Route Start Last Admin Trade Name Freq PRN Reason Stop Dose Admin Acetaminophen 650 mg 07/25/21 16:00 08/03/21 21:44 Acetaminophen 325 Mg Tab PO 650 mg Q4H PRN Administration Pain MILD(1-3)/Fever >100.5/RAYO Albuterol/Ipratropium 1 ampul 08/03/21 14:00 08/05/21 07:46 Ipratropium/Albuterol Sulfate 3 Ml Ampul.Neb IH 1 ampul TIDRT BLANCA Administration Amlodipine Besylate 10 mg 07/28/21 10:00 08/05/21 09:04 Amlodipine 5 Mg Tab FEEDTUBE 10 mg QDAY BLANCA Administration Lipase/Protease/Amylase 1 each 07/26/21 14:56 Lipase 10,500/Protease 25,000/Amylase 43,750 (Units) Dr Zambrano FEEDTUBE PRN PRN For Clogged Feeding Tube Dextrose 50 ml 07/26/21 12:22 Dextrose 50% In Water (25gm) 50 Ml Syringe IV Q30MIN PRN Hypoglycemia Protocol Famotidine 10 mg 07/27/21 10:00 08/05/21 09:04 Famotidine 10 Mg Tab FEEDTUBE 10 mg BID BLANCA Administration Heparin Sodium (Porcine) 5,000 unit 07/25/21 16:00 08/05/21 09:04 Heparin 5,000 Unit/1 Ml Vial SUB-Q 5,000 unit Q12HR BLANCA Administration Hydralazine HCl 25 mg 07/30/21 14:00 08/05/21 05:49 Hydralazine 25 Mg Tab PO 25 mg Q8HR BLANCA Administration Hydralazine HCl 15 mg 07/30/21 07:44 Hydralazine 20 Mg/1 Ml Inj IV Q6H PRN Blood Pressure Insulin Human Regular 0 units 07/26/21 12:00 08/05/21 05:49 Insulin Regular, Human 100 Units/1 Ml SUB-Q Not Given Q6HR [facility] Protocol Labetalol HCl 100 mg 07/28/21 10:00 08/05/21 09:04 Labetalol 100 Mg Tab FEEDTUBE 100 mg BID BLANCA Administration Ondansetron HCl 4 mg 07/25/21 16:00 Ondansetron 4 Mg/2 Ml Inj IV Q8H PRN Nausea And Vomiting Oxycodone/Acetaminophen 1 tab 07/27/21 12:27 08/05/21 05:53 Oxycodone /Acetaminophen 5-325mg Tab PO 1 tab Q6H PRN Administration Pain, Moderate (4-6) Polyethylene Glycol 17 gm 07/26/21 17:04 Polyethylene Glycol 3350 17 Gm Powder PO QDAY PRN Constipation Senna/Docusate Sodium 1 tab 07/26/21 22:00 08/04/21 22:03 Sennosides/Docusate Sodium 8.6/50 Mg Tab PO 1 tab QHS BLANCA Administration Simple Syrup 15 ml 07/26/21 14:56 Simple Syrup 15 Ml FEEDTUBE PRN PRN Hypoglycemia Simple Syrup 30 ml 07/26/21 14:56 Simple Syrup 15 Ml FEEDTUBE PRN PRN Hypoglycemia Sodium Bicarbonate 325 mg 07/26/21 14:56 Sodium Bicarbonate 325 Mg Tab FEEDTUBE PRN PRN For Clogged Feeding Tube Sodium Chloride 10 ml 07/25/21 22:00 08/05/21 09:05 Sodium Chloride 0.9% 10 Ml Flush Syringe IV 10 ml BID BLANCA Administration Sodium Chloride 10 ml 07/25/21 16:07/26/21 00:08 Sodium Chloride 0.9% 10 Ml Flush Syringe IV 10 ml PRN PRN Administration LINE FLUSH
--- NOTE | 2021-08-05 10:55 | Progress Note ---
Assessment and Plan Acute and chronic Respiratory Failure with Hypoxia and Hypercapnia 2/2 HCAP and CHF exacerbation s/p MVS Tracheostomy status Oropharyngeal dysphagia s/p PEG h/o Ischemic cardiomyopathy HCAP AE-CHF exacerbation The patient is phonating around the tracheostomy but unable to pass catheter down the trach Get CT neck to evaluate anatomy We can start PMV and capping trials as toelrated PT/OT, increase activity -Trach care, airway clearance, secretion management -Titrate supplemental oxygen to keep SpO2 89-90% -Bronchodilators -Modified diet with aspiration precautions - continue contact isolation re: MRSA - continue bronchodilators with pulmonary hygiene per RT - continue accuchecks with glycemic control per SSI for target blood glucose of < 180 mg/dL; avoid hypoglycemia - avoid nephrotoxins, renally dose all medications - continue to avoid benzodiazepines, reduce the possibility of delirium - prn analgesia per pain score - Maintenance of sleep-wake cycle, avoid delirium - VTE prophylaxis - continue other care per attending / other consultants - discharge planning ongoing concurrently Subjective Date of service: 08/05/21 Principal diagnosis: Ac and ch hypoxemic and hypercapnic Resp Failure; HCAP; AE- CHF; s/p Trach Interval history: Patient is seen today for: Acute and chronic hypoxemic and hypercapnic Respiratory Failure; HCAP; AE-CHF; s/p Tracheostomy; H/O Ischemic cardiomyopathy Seen and examined at bedside; 24hour events reviewed; nursing and respiratory care staff consulted; no adverse overnight events reported to me; resting peacefully in bed;talking around trach; trach to ATP; tolerating a modified diet. Unable to advance suction tubing down the tracheostomy Objective Vital Signs - 12hr 08/05/21 08/05/21 08/05/21 04:05 04:11 05:49 Temperature 98.9 F Pulse Rate 91 H 91 H Pulse Rate [ Bilateral Throughout] Respiratory 20 Rate Respiratory Rate [Bilateral Throughout] Blood Pressure 167/91 167/91 O2 Sat by Pulse 97 Oximetry O2 Sat by Pulse 95 Oximetry [ Assessment] 08/05/21 08/05/21 07:14 07:46 Temperature Pulse Rate Pulse Rate [ 96 H Bilateral Throughout] Respiratory Rate Respiratory 18 Rate [Bilateral Throughout] Blood Pressure O2 Sat by Pulse 97 97 Oximetry O2 Sat by Pulse 97 Oximetry [ Assessment] Constitutional: no acute distress, alert, other (atraumatic, normocephalic, trach to ATP) Eyes: non-icteric ENT: oropharynx moist, other (midline tracheostomy) Neck: supple, no lymphadenopathy, no JVD Effort: normal Ascultation: Bilateral: diminished breath sounds, wheezes, rhonchi (scant) Percussion: Bilateral: not dull Cardiovascular: regular rate and rhythm, other (S1,S2) Gastrointestinal: normoactive bowel sounds, soft, non-tender, non-distended (protuberant), other (PEG) Integumentary: normal Extremities: no cyanosis, pulses normal, no ischemia or petechiae, edema Neurologic: normal mental status, non-focal exam, pupils equal and round, CN II- XII normal, motor strength normal and, other (moves all extremities) Psychiatric: mood appropriate, affect normal CBC and BMP: 08/06/21 05:04 08/07/21 10:49 ABG, PT/INR, D-dimer: ABG ABG pH 7.449 pH Units (7.350-7.450) 07/29/21 20:45 ABG pCO2 51.3 mm Hg 07/29/21 20:45 ABG pO2 85.8 mm Hg (80.0-90.0) 07/29/21 20:45 ABG O2 Saturation 97.0 % (95.0-99.0) 07/29/21 20:45 Abnormal lab findings: Abnormal Labs 07/25/21 07/25/21 07/25/21 11:19 21:50 Unknown WBC 18.1 H Hgb Hct MCV MCH RDW 16.2 H Seg Neuts % (Manual) Lymphocytes % (Manual) Monocytes % (Manual) Seg Neutrophils # Man 12.1 H Lymphocytes # (Manual) ABG pH 6.917 L* ABG pO2 331.8 H ABG HCO3 39.3 H ABG O2 Saturation 99.4 H ABG Base Excess ABG Hemoglobin 12.1 L Oxyhemoglobin Sodium Potassium Chloride Carbon Dioxide BUN Creatinine Glucose POC Glucose Lactic Acid C-Reactive Protein Albumin Sxfgo-2-Ibkudglyr PEP Interpretation Urine WBC (Auto) 26.0 H Urine Creatinine Urine Total Protein 07/25/21 07/25/21 07/25/21 Unknown Unknown Unknown WBC Hgb Hct MCV MCH RDW Seg Neuts % (Manual) Lymphocytes % (Manual) Monocytes % (Manual) Seg Neutrophils # Man Lymphocytes # (Manual) ABG pH 7.029 L* ABG pO2 97.5 H ABG HCO3 37.2 H ABG O2 Saturation 93.5 L ABG Base Excess ABG Hemoglobin 12.7 L Oxyhemoglobin 91.7 L Sodium 129 L Potassium Chloride 90.1 L Carbon Dioxide BUN 8 L Creatinine Glucose 258 H POC Glucose Lactic Acid 4.90 H* C-Reactive Protein Albumin 3.8 L Iyrnh-2-Etmaymoah PEP Interpretation Urine WBC (Auto) Urine Creatinine Urine Total Protein 07/25/21 07/26/21 07/26/21 Unknown 00:10 03:50 WBC 15.5 H Hgb Hct MCV MCH RDW 15.4 H Seg Neuts % (Manual) 96.0 H Lymphocytes % (Manual) 3.0 L Monocytes % (Manual) Seg Neutrophils # Man 14.9 H Lymphocytes # (Manual) 0.5 L ABG pH 7.217 L ABG pO2 162.9 H ABG HCO3 34.3 H ABG O2 Saturation ABG Base Excess 4.0 H ABG Hemoglobin 12.5 L Oxyhemoglobin Sodium Potassium Chloride Carbon Dioxide BUN Creatinine Glucose POC Glucose 158 H Lactic Acid C-Reactive Protein Albumin Lbpem-5-Bfdfvkjli PEP Interpretation Urine WBC (Auto) Urine Creatinine Urine Total Protein 07/26/21 07/26/21 07/26/21 03:50 04:30 07:44 WBC Hgb Hct MCV MCH RDW Seg Neuts % (Manual) Lymphocytes % (Manual) Monocytes % (Manual) Seg Neutrophils # Man Lymphocytes # (Manual) ABG pH 7.170 L* ABG pO2 65.5 L ABG HCO3 33.9 H ABG O2 Saturation ABG Base Excess ABG Hemoglobin 12.0 L Oxyhemoglobin 93.5 L Sodium 132 L Potassium 6.0 H D 5.6 H Chloride 93.2 L Carbon Dioxide BUN Creatinine Glucose 171 H POC Glucose Lactic Acid C-Reactive Protein Albumin 3.7 L Fyvzg-2-Gjsnrlctf PEP Interpretation Urine WBC (Auto) Urine Creatinine Urine Total Protein 07/26/21 07/26/21 07/27/21 12:34 17:18 04:54 WBC 11.9 H Hgb 11.1 L Hct 34.5 L MCV MCH 27 L RDW 15.5 H Seg Neuts % (Manual) Lymphocytes % (Manual) Monocytes % (Manual) Seg Neutrophils # Man Lymphocytes # (Manual) ABG pH 7.286 L ABG pO2 100.0 H ABG HCO3 31.4 H ABG O2 Saturation ABG Base Excess 3.2 H ABG Hemoglobin 11.8 L Oxyhemoglobin Sodium Potassium Chloride Carbon Dioxide BUN Creatinine Glucose POC Glucose 111 H Lactic Acid C-Reactive Protein Albumin Yquge-9-Rmesqdjkr PEP Interpretation Urine WBC (Auto) Urine Creatinine Urine Total Protein 07/27/21 07/27/21 07/27/21 04:54 10:30 15:57 WBC Hgb Hct MCV MCH RDW Seg Neuts % (Manual) Lymphocytes % (Manual) Monocytes % (Manual) Seg Neutrophils # Man Lymphocytes # (Manual) ABG pH ABG pO2 76.9 L ABG HCO3 30.2 H ABG O2 Saturation ABG Base Excess 3.9 H ABG Hemoglobin 11.2 L Oxyhemoglobin Sodium 136 L Potassium Chloride Carbon Dioxide BUN 37 H Creatinine 2.2 H D Glucose POC Glucose Lactic Acid C-Reactive Protein 2.40 H Albumin Rbhyb-7-Tciwolifp PEP Interpretation Urine WBC (Auto) Urine Creatinine Urine Total Protein 07/27/21 07/27/21 07/27/21 17:45 17:45 17:52 WBC Hgb Hct MCV MCH RDW Seg Neuts % (Manual) Lymphocytes % (Manual) Monocytes % (Manual) Seg Neutrophils # Man Lymphocytes # (Manual) ABG pH ABG pO2 ABG HCO3 ABG O2 Saturation ABG Base Excess ABG Hemoglobin Oxyhemoglobin Sodium Potassium Chloride Carbon Dioxide BUN Creatinine Glucose POC Glucose 114 H Lactic Acid C-Reactive Protein Albumin Qwitk-1-Dytvfaglt PEP Interpretation Urine WBC (Auto) Urine Creatinine 106.0 H 105.6 H Urine Total Protein 30 H 07/28/21 07/28/21 07/28/21 04:32 04:32 04:32 WBC Hgb 11.0 L Hct 34.4 L MCV MCH 27 L RDW 16.0 H Seg Neuts % (Manual) Lymphocytes % (Manual) Monocytes % (Manual) Seg Neutrophils # Man Lymphocytes # (Manual) ABG pH ABG pO2 ABG HCO3 ABG O2 Saturation ABG Base Excess ABG Hemoglobin Oxyhemoglobin Sodium 135 L Potassium Chloride Carbon Dioxide BUN 40 H Creatinine 2.3 H Glucose 124 H POC Glucose Lactic Acid C-Reactive Protein Albumin 3.0 L Wnjba-7-Rgedwodpx 0.4 H PEP Interpretation see below H Urine WBC (Auto) Urine Creatinine Urine Total Protein 07/28/21 07/28/21 07/28/21 11:19 13:12 17:34 WBC Hgb Hct MCV MCH RDW Seg Neuts % (Manual) Lymphocytes % (Manual) Monocytes % (Manual) Seg Neutrophils # Man Lymphocytes # (Manual) ABG pH ABG pO2 103.7 H ABG HCO3 32.7 H ABG O2 Saturation ABG Base Excess 7.1 H ABG Hemoglobin 10.8 L Oxyhemoglobin Sodium Potassium Chloride Carbon Dioxide BUN Creatinine Glucose POC Glucose 117 H 124 H Lactic Acid C-Reactive Protein Albumin Zknua-1-Klupnzxcf PEP Interpretation Urine WBC (Auto) Urine Creatinine Urine Total Protein 07/28/21 07/29/21 07/29/21 23:54 05:09 05:39 WBC Hgb Hct MCV MCH RDW Seg Neuts % (Manual) Lymphocytes % (Manual) Monocytes % (Manual) Seg Neutrophils # Man Lymphocytes # (Manual) ABG pH ABG pO2 ABG HCO3 ABG O2 Saturation ABG Base Excess ABG Hemoglobin Oxyhemoglobin Sodium Potassium Chloride Carbon Dioxide 32 H BUN 34 H Creatinine 2.1 H Glucose 124 H POC Glucose 107 H 120 H Lactic Acid C-Reactive Protein Albumin Vhmja-5-Wacsmbwdp PEP Interpretation Urine WBC (Auto) Urine Creatinine Urine Total Protein 07/29/21 07/29/21 07/29/21 09:00 20:45 23:15 WBC Hgb Hct MCV MCH RDW Seg Neuts % (Manual) Lymphocytes % (Manual) Monocytes % (Manual) Seg Neutrophils # Man Lymphocytes # (Manual) ABG pH ABG pO2 131.5 H ABG HCO3 35.1 H 34.7 H ABG O2 Saturation ABG Base Excess 9.1 H 9.3 H ABG Hemoglobin 11.8 L 11.7 L Oxyhemoglobin Sodium Potassium Chloride Carbon Dioxide BUN Creatinine Glucose POC Glucose 114 H Lactic Acid C-Reactive Protein Albumin Fffns-5-Wndjqbbpp PEP Interpretation Urine WBC (Auto) Urine Creatinine Urine Total Protein 07/30/21 07/30/21 07/30/21 04:19 04:19 05:25 WBC Hgb 10.9 L Hct 32.6 L MCV 83 L MCH RDW 16.2 H Seg Neuts % (Manual) Lymphocytes % (Manual) Monocytes % (Manual) Seg Neutrophils # Man Lymphocytes # (Manual) ABG pH ABG pO2 ABG HCO3 ABG O2 Saturation ABG Base Excess ABG Hemoglobin Oxyhemoglobin Sodium Potassium Chloride Carbon Dioxide 33 H BUN 32 H Creatinine 2.2 H Glucose 108 H POC Glucose 109 H Lactic Acid C-Reactive Protein Albumin Frwnh-2-Dclmajwwj PEP Interpretation Urine WBC (Auto) Urine Creatinine Urine Total Protein 07/31/21 07/31/21 07/31/21 04:26 05:35 23:23 WBC Hgb Hct MCV MCH RDW Seg Neuts % (Manual) Lymphocytes % (Manual) Monocytes % (Manual) Seg Neutrophils # Man Lymphocytes # (Manual) ABG pH ABG pO2 ABG HCO3 ABG O2 Saturation ABG Base Excess ABG Hemoglobin Oxyhemoglobin Sodium Potassium Chloride Carbon Dioxide 32 H BUN 30 H Creatinine 2.1 H Glucose 108 H POC Glucose 124 H 116 H Lactic Acid C-Reactive Protein Albumin Monvk-4-Dbwtsxndg PEP Interpretation Urine WBC (Auto) Urine Creatinine Urine Total Protein 08/01/21 08/01/21 08/01/21 05:42 11:49 16:42 WBC Hgb Hct MCV MCH RDW Seg Neuts % (Manual) Lymphocytes % (Manual) Monocytes % (Manual) Seg Neutrophils # Man Lymphocytes # (Manual) ABG pH ABG pO2 ABG HCO3 ABG O2 Saturation ABG Base Excess ABG Hemoglobin Oxyhemoglobin Sodium Potassium Chloride Carbon Dioxide 33 H BUN 29 H Creatinine 2.0 H Glucose 106 H POC Glucose 111 H 65 L Lactic Acid C-Reactive Protein Albumin Jrdpv-3-Aptrtsnxi PEP Interpretation Urine WBC (Auto) Urine Creatinine Urine Total Protein 08/03/21 08/03/21 08/04/21 00:07 12:26 05:15 WBC Hgb 11.3 L Hct 34.2 L MCV MCH RDW 17.2 H Seg Neuts % (Manual) Lymphocytes % (Manual) Monocytes % (Manual) 10.0 H Seg Neutrophils # Man Lymphocytes # (Manual) ABG pH ABG pO2 ABG HCO3 ABG O2 Saturation ABG Base Excess ABG Hemoglobin Oxyhemoglobin Sodium Potassium Chloride Carbon Dioxide BUN Creatinine Glucose POC Glucose 111 H 115 H Lactic Acid C-Reactive Protein Albumin Hyimo-7-Ufzhmrpqr PEP Interpretation Urine WBC (Auto) Urine Creatinine Urine Total Protein 08/04/21 08/04/21 05:15 07:31 WBC Hgb Hct MCV MCH RDW Seg Neuts % (Manual) Lymphocytes % (Manual) Monocytes % (Manual) Seg Neutrophils # Man Lymphocytes # (Manual) ABG pH ABG pO2 ABG HCO3 ABG O2 Saturation ABG Base Excess ABG Hemoglobin Oxyhemoglobin Sodium Potassium Chloride Carbon Dioxide BUN 29 H Creatinine 1.9 H Glucose 104 H POC Glucose 109 H Lactic Acid C-Reactive Protein Albumin Mdtgw-2-Yfpkzwkmf PEP Interpretation Urine WBC (Auto) Urine Creatinine Urine Total Protein Allied health notes reviewed: RT
--- NOTE | 2021-08-05 11:29 | Progress Note ---
Assessment and Plan Assessment and plan: This is a 61-year-old male who is a [facility] of a detention facility with chronic hypoxic respiratory failure s/p trach with vent dependency, recent COVID-19 infection, ischemic cardiomyopathy, type 2 diabetes mellitus, obesity who presented to the emergency department on 07/25 via EMS with chief complaints of respiratory distress from his correction. In the emergency department patient was placed on the ventilator as he was tachypneic, dyspneic and did not improve after suctioning. Work-up in the emergency department revealed lactic acidosis, leukocytosis and CXR revealed possible retrocardiac pneumonia and started on antibiotics for HAP. Patient was admitted to the hospitalist service with consults to CCM with acute on chronic respiratory failure and HAP. Assessment and plan: This is a 61 year old male from a SNF with chronic hypoxic resp failure s/p t kaia, recent COVID 19 infection, ischemic cardiomyopathy IDDM, obesity admitted with acute on chronic resp failure, HAP, hyperkalemia, and lactic acidosis. Neuro: NAD -p.o. oxycodone prn -Reorientation as needed -Maintain sleep-wake cycle -CT head continued mild microvascular angiopathy without clear CT evidence of acute intercranial hemorrhage Cardiac: h/o HTN -Cardiology consulted, appreciate recommendations -Blood pressure monitoring per protocol -03/09/21 Echocardiogram LVEF 60-65% -Amlodipine, Labetalol, hydralazine PO (titrate as tolerated) -Avoid ACEi or ARB in setting of MONIK Respiratory: Acute on chronic hypercapnic respiratory failure, s/p trach -CCM consulted, appreciate recommendations -T piece 35 % Fio2 -See RT notes for titration -Pulm hygiene -SPO2 monitoring GI: MO, moderate protein calorie malnutrition -24 hours + 398 mL -PPI -NTR consulted for tube feedings -s/p PEG tube in place -BR: Senokat S : Acute kidney injury (improving), h/o urinary retention -Nephrology consulted, appreciate recommendations -Renal ultrasound shows echogenic kidneys which can be seen with medical renal disease, no hydronephrosis -FeNa indicate prerenal -Monitor intake and output -Renally dose medications -Avoid nephrotoxic medications -Good catheter placed for urinary retention -Trend BMP ID: HAP (POA) -Infectious disease consulted, appreciate recommendations -COVID PCR (-) -MRSA PCR positive -07/25 BC x2 NGTD, UC NGTD -Antibiotic therapy with cefepime -f/u blood culture -Monitor WBC and temperature curve Endo: h/o DM -Avoid hypoglycemia -SSI -Accu-Cheks q. 6 Heme: Leukocytosis -Heparin subq -Trend CBC -Transfuse hemoglobin less than 7 -Monitor for signs of bleeding -SCDs to BLE while in bed Hospital course to date: 07/26: Stopped Solu-Medrol, given For hyperkalemia, started on tube feedings. Remains on fentanyl and Mucomyst 07/27: Renal indices increased, patient did receive Lasix x1 yesterday. Nephrology was consulted. Urine lites and bilateral renal ultrasound pending. Infectious disease consulted. Bladder scan performed and Good catheter placed. COVID 19 PCR negative 07/28: No acute events reported overnight, worsening renal function-nephrology is on the case. Continue with cefepime per ID. Vent changes per CCM. 07/29: Slight improvement to renal function tests, remains on assist control. No acute events reported overnight. 07/30: Patient has been on T-piece all night. Renal function continues slightly worse however patient is still creating urine. Possible transfer to floor or imcu. Per pt he is requesting transfer to another correction if needed on discharge. 07/31: IMCU currently. Resting comfortably. no complaints. ST/PT eval. Working with CM for placement back to LTAC. ID okay with discontinuing antibiotics. Discussed patient case with pulmonology as well Dr. Azul 08/01: Patient still requiring 8 L of O2 via T-piece. Case management working for possible placement at LTAC. ID discontinue antibiotics. Continue PMV trials as tolerated. 08/02/2021 Patient still requiring high flow oxygen 08/03/2021. Patient still requiring 8 L of O2 via T-piece. Continue PMV trials as tolerated. 08/04/2021. Patient still requiring large amounts of oxygen. Patient currently with 10 L O2 FiO2 40%. Continue to wean O2 as tolerated. Recheck chest x-ray 08/05/2021. Patient still requiring large amounts of oxygen. Patient currently with 10 L O2 FiO2 40%. Continue to wean O2 as tolerated. Chest x-ray remains negative. Patient appears to have chronic kidney disease with renal function remaining stable at this time, hemoglobin 11.2 creatinine is currently 1.9, slight improvement, felt to be in stage IIIb chronic kidney disease for now needs ongoing monitoring and follow-up History Interval history: No new issues overnight Hospitalist Physical - Constitutional Vitals: Temp Pulse Resp BP Pulse Ox 98.9 F 96 H 18 167/91 97 08/05/21 04:11 08/05/21 07:46 08/05/21 07:46 08/05/21 05:49 08/05/21 07:46 General appearance: Present: no acute distress, well-nourished - EENT Eyes: Present: PERRL, EOM intact ENT: hearing intact, clear oral mucosa, dentition normal - Neck Neck: Present: supple, normal ROM - Respiratory Respiratory effort: normal Respiratory: bilateral: CTA - Cardiovascular Rhythm: regular Heart Sounds: Present: S1 & S2. Absent: gallop, rub - Extremities Extremities: no ischemia, No edema, Full ROM - Abdominal General gastrointestinal: soft, non-tender, non-distended, normal bowel sounds - Integumentary Integumentary: Present: clear, warm, dry - Neurologic Neurologic: CNII-XII intact, moves all extremities HEART Score - HEART Score Troponin: Troponin T < 0.010 ng/mL (0.00-0.029) 07/25/21 Unknown Results - Labs CBC & Chem 7: 08/04/21 05:15 08/04/21 05:15 Labs: Laboratory Last Values WBC 6.1 K/mm3 (4.5-11.0) 08/04/21 05:15 RBC 4.06 M/mm3 (3.65-5.03) 08/04/21 05:15 Hgb 11.3 gm/dl (11.8-15.2) L 08/04/21 05:15 Hct 34.2 % (35.5-45.6) L 08/04/21 05:15 MCV 84 fl (84-94) 08/04/21 05:15 MCH 28 pg (28-32) 08/04/21 05:15 MCHC 33 % (32-34) 08/04/21 05:15 RDW 17.2 % (13.2-15.2) H 08/04/21 05:15 Plt Count 287 K/mm3 (140-440) 08/04/21 05:15 Wilkes % (Auto) Curing Pickling Packer 08/04/21 05:15 Lymph # (Auto) Curing Pickling Packer 07/25/21 Unknown Add Manual Diff Complete 08/04/21 05:15 Total Counted 100 08/04/21 05:15 Seg Neuts % (Manual) 52.0 % (40.0-70.0) 08/04/21 05:15 Band Neutrophils % 0 % 08/04/21 05:15 Lymphocytes % (Manual) 35.0 % (13.4-35.0) 08/04/21 05:15 Reactive Lymphs % (Man) 0 % 08/04/21 05:15 Monocytes % (Manual) 10.0 % (0.0-7.3) H 08/04/21 05:15 Eosinophils % (Manual) 3.0 % (0.0-4.3) 08/04/21 05:15 Basophils % (Manual) 0 % (0.0-1.8) 08/04/21 05:15 Metamyelocytes % 0 % 08/04/21 05:15 Myelocytes % 0 % 08/04/21 05:15 Promyelocytes % 0 % 08/04/21 05:15 Blast Cells % 0 % 08/04/21 05:15 Nucleated RBC % Not Reportable 08/04/21 05:15 Seg Neutrophils # Man 3.2 K/mm3 (1.8-7.7) 08/04/21 05:15 Band Neutrophils # 0.0 K/mm3 08/04/21 05:15 Lymphocytes # (Manual) 2.1 K/mm3 (1.2-5.4) 08/04/21 05:15 Abs React Lymphs (Man) 0.0 K/mm3 08/04/21 05:15 Monocytes # (Manual) 0.6 K/mm3 (0.0-0.8) 08/04/21 05:15 Eosinophils # (Manual) 0.2 K/mm3 (0.0-0.4) 08/04/21 05:15 Basophils # (Manual) 0.0 K/mm3 (0.0-0.1) 08/04/21 05:15 Metamyelocytes # 0.0 K/mm3 08/04/21 05:15 Myelocytes # 0.0 K/mm3 08/04/21 05:15 Promyelocytes # 0.0 K/mm3 08/04/21 05:15 Blast Cells # 0.0 K/mm3 08/04/21 05:15 WBC Morphology Not Reportable 08/04/21 05:15 Hypersegmented Neuts Not Reportable 08/04/21 05:15 Hyposegmented Neuts Not Reportable 08/04/21 05:15 Hypogranular Neuts Not Reportable 08/04/21 05:15 Smudge Cells Not Reportable 08/04/21 05:15 Toxic Granulation Not Reportable 08/04/21 05:15 Toxic Vacuolation Not Reportable 08/04/21 05:15 Dohle Bodies Not Reportable 08/04/21 05:15 Pelger-Huet Anomaly Not Reportable 08/04/21 05:15 Mely Rods Not Reportable 08/04/21 05:15 Platelet Estimate Consistent w auto 08/04/21 05:15 Clumped Platelets Not Reportable 08/04/21 05:15 Plt Clumps, EDTA Not Reportable 08/04/21 05:15 Large Platelets Not Reportable 08/04/21 05:15 Giant Platelets Not Reportable 08/04/21 05:15 Platelet Satelliting Not Reportable 08/04/21 05:15 Plt Morphology Comment Not Reportable 08/04/21 05:15 RBC Morphology Normal 08/04/21 05:15 Dimorphic RBCs Not Reportable 08/04/21 05:15 Polychromasia Not Reportable 08/04/21 05:15 Hypochromasia Few 08/04/21 05:15 Poikilocytosis Not Reportable 08/04/21 05:15 Anisocytosis Not Reportable 08/04/21 05:15 Microcytosis Not Reportable 08/04/21 05:15 Macrocytosis Not Reportable 08/04/21 05:15 Spherocytes Not Reportable 08/04/21 05:15 Pappenheimer Bodies Not Reportable 08/04/21 05:15 Sickle Cells Not Reportable 08/04/21 05:15 Target Cells Not Reportable 08/04/21 05:15 Tear Drop Cells Not Reportable 08/04/21 05:15 Ovalocytes Not Reportable 08/04/21 05:15 Helmet Cells Not Reportable 08/04/21 05:15 Longo-[place]burn Bodies Not Reportable 08/04/21 05:15 [place] Rings Not Reportable 08/04/21 05:15 Lohman Cells Not Reportable 08/04/21 05:15 Bite Cells Not Reportable 08/04/21 05:15 Crenated Cell Not Reportable 08/04/21 05:15 Elliptocytes Not Reportable 08/04/21 05:15 Acanthocytes (Spur) Not Reportable 08/04/21 05:15 Rouleaux Not Reportable 08/04/21 05:15 Hemoglobin C Crystals Not Reportable 08/04/21 05:15 Schistocytes Not Reportable 08/04/21 05:15 Malaria parasites Not Reportable 08/04/21 05:15 Shaheen Bodies Not Reportable 08/04/21 05:15 Hem Pathologist Commnt No 08/04/21 05:15 ABG pH 7.449 pH Units (7.350-7.450) 07/29/21 20:45 ABG pCO2 51.3 mm Hg 07/29/21 20:45 ABG pO2 85.8 mm Hg (80.0-90.0) 07/29/21 20:45 ABG HCO3 34.7 mmol/L (20.0-26.0) H 07/29/21 20:45 ABG O2 Saturation 97.0 % (95.0-99.0) 07/29/21 20:45 ABG O2 Content 15.7 (0.0-44) 07/29/21 20:45 ABG Base Excess 9.3 mmol/L (-2.0-3.0) H 07/29/21 20:45 ABG Hemoglobin 11.7 gm/dl (14.0-18.0) L 07/29/21 20:45 ABG Carboxyhemoglobin 1.2 % (0.0-5.0) 07/29/21 20:45 ABG Methemoglobin 0.6 % (0.0-1.5) 07/29/21 20:45 Oxyhemoglobin 95.2 % (95.0-99.0) 07/29/21 20:45 FiO2 35 % 07/29/21 20:45 Sodium 142 mmol/L (137-145) 08/04/21 05:15 Potassium 4.3 mmol/L (3.6-5.0) 08/04/21 05:15 Chloride 102.5 mmol/L (98-107) 08/04/21 05:15 Carbon Dioxide 30 mmol/L (22-30) 08/04/21 05:15 Anion Gap 14 mmol/L 08/04/21 05:15 BUN 29 mg/dL (9-20) H 08/04/21 05:15 Creatinine 1.9 mg/dL (0.8-1.3) H 08/04/21 05:15 Estimated GFR 36 ml/min 08/04/21 05:15 BUN/Creatinine Ratio 15 % 08/04/21 05:15 Glucose 104 mg/dL (75-100) H 08/04/21 05:15 POC Glucose 93 mg/dL (70-105) 08/05/21 05:47 Hemoglobin A1c 5.9 % (4-6) 07/26/21 03:50 Lactic Acid 4.90 mmol/L (0.7-2.0) H* 07/25/21 Unknown Calcium 10.0 mg/dL (8.4-10.2) 08/04/21 05:15 Total Bilirubin 0.20 mg/dL (0.1-1.2) 07/26/21 03:50 AST 19 units/L (5-40) 07/26/21 03:50 ALT 11 units/L (7-56) 07/26/21 03:50 Alkaline Phosphatase 73 units/L (35-129) 07/26/21 03:50 Troponin T < 0.010 ng/mL (0.00-0.029) 07/25/21 Unknown C-Reactive Protein 2.40 mg/dL (0.00-1.30) H 07/27/21 15:57 Serum Total Protein 6.4 g/dL (6.1-8.1) 07/28/21 04:32 Total Protein 8.2 g/dL (6.3-8.2) 07/26/21 03:50 Albumin 3.0 g/dL (3.8-4.8) L 07/28/21 04:32 Albumin/Globulin Ratio 0.8 % 07/26/21 03:50 Xzkfy-7-Nhhswuqps 0.4 g/dL (0.2-0.3) H 07/28/21 04:32 Iqqzo-3-Vgcpdutqa 0.7 g/dL (0.5-0.9) 07/28/21 04:32 Beta Globulins 0.4 g/dL (0.2-0.5) 07/28/21 04:32 Gamma Globulins 1.5 g/dL (0.8-1.7) 07/28/21 04:32 Abnorm Protein Band 1 see below 07/28/21 04:32 PEP Interpretation see below H 07/28/21 04:32 Procalcitonin 0.77 ng/mL (<0.15) 07/27/21 15:57 Urine Color Yellow (Yellow) 07/25/21 11:19 Urine Turbidity Cloudy (Clear) 07/25/21 11:19 Urine pH 6.0 (5.0-7.0) 07/25/21 11:19 Ur Specific [place] 1.015 (1.003-1.030) 07/25/21 11:19 Urine Protein >500 mg/dL (Negative) 07/25/21 11:19 Urine Glucose (UA) 150 mg/dL (Negative) 07/25/21 11:19 Urine Ketones Neg mg/dL (Negative) 07/25/21 11:19 Urine Blood Neg (Negative) 07/25/21 11:19 Urine Nitrite Neg (Negative) 07/25/21 11:19 Urine Bilirubin Neg (Negative) 07/25/21 11:19 Urine Urobilinogen < 2.0 mg/dL (<2.0) 07/25/21 11:19 Ur Leukocyte Esterase Neg (Negative) 07/25/21 11:19 Urine WBC (Auto) 26.0 /HPF (0.0-6.0) H 07/25/21 11:19 Urine RBC (Auto) 53.0 /HPF (0.0-6.0) 07/25/21 11:19 U Epithel Cells (Auto) 7.0 /HPF (0-13.0) 07/25/21 11:19 Urine Bacteria (Auto) 4+ /HPF (Negative) 07/25/21 11:19 Hyaline Casts 21 /LPF 07/25/21 11:19 Urine Mucus Few /HPF 07/25/21 11:19 Urine Yeast (Budding) 2+ /HPF 07/25/21 11:19 Urine Sperm 3+ /HPF (HAND TUFTER) 07/25/21 11:19 Urine Eosinophils None seen (None Seen) 07/27/21 17:45 Urine Creatinine 105.6 mg/dL (0.1-20.0) H 07/27/21 17:45 Urine Creatinine 106.0 mg/dL (0.1-20.0) H 07/27/21 17:45 Protein/Creatinin Ratio 0.28 07/27/21 17:45 Urine Sodium 46 mmol/L 07/27/21 17:45 Urine Total Protein 30 mg/dL (5-11.8) H 07/27/21 17:45 Nasal Screen MRSA (PCR) Positive (Negative) 07/26/21 16:30 PUMA Screen Negative (Negative) 07/27/21 18:17 Proteinase 3 (PR3) Ab <1.0 AI (<1.0) 07/27/21 18:17 Myeloperoxidase Ab <1.0 AI (<1.0) 07/27/21 18:17 Double Strand DNA Ab 1 IU/mL (<=4) 07/27/21 18:17 Complement C3 149 mg/dL (82-185) 07/27/21 18:17 Complement C4 48 mg/dL (15-53) 07/27/21 18:17 Coronavirus (PCR) Negative (Negative) 07/27/21 09:00 SARS-CoV-2 (PCR) Negative (Negative) 07/31/21 13:05 Hepatitis A IgM Ab Non-reactive (NonReactive) 07/27/21 18:17 Hep Bs Antigen Non-reactive (Negative) 07/27/21 18:17 Hep B Core IgM Ab Non-reactive (NonReactive) 07/27/21 18:17 Hepatitis C Antibody Non-reactive (NonReactive) 07/27/21 18:17 Good/IV: Voiding Method Indwelling Catheter Active Medications - Current Medications Current Medications: Generic Name Dose Route Start Last Admin Trade Name Freq PRN Reason Stop Dose Admin Acetaminophen 650 mg 07/25/21 16:00 08/03/21 21:44 Acetaminophen 325 Mg Tab PO 650 mg Q4H PRN Administration Pain MILD(1-3)/Fever >100.5/RAYO Albuterol/Ipratropium 1 ampul 08/03/21 14:00 08/05/21 07:46 Ipratropium/Albuterol Sulfate 3 Ml Ampul.Neb IH 1 ampul TIDRT BLANCA Administration Amlodipine Besylate 10 mg 07/28/21 10:00 08/05/21 09:04 Amlodipine 5 Mg Tab FEEDTUBE 10 mg QDAY BLANCA Administration Lipase/Protease/Amylase 1 each 07/26/21 14:56 Lipase 10,500/Protease 25,000/Amylase 43,750 (Units) Dr Zambrano FEEDTUBE PRN PRN For Clogged Feeding Tube Dextrose 50 ml 07/26/21 12:22 Dextrose 50% In Water (25gm) 50 Ml Syringe IV Q30MIN PRN Hypoglycemia Protocol Famotidine 10 mg 07/27/21 10:00 08/05/21 09:04 Famotidine 10 Mg Tab FEEDTUBE 10 mg BID BLANCA Administration Heparin Sodium (Porcine) 5,000 unit 07/25/21 16:00 08/05/21 09:04 Heparin 5,000 Unit/1 Ml Vial SUB-Q 5,000 unit Q12HR BLANCA Administration Hydralazine HCl 25 mg 07/30/21 14:00 08/05/21 05:49 Hydralazine 25 Mg Tab PO 25 mg Q8HR BLANCA Administration Hydralazine HCl 15 mg 07/30/21 07:44 Hydralazine 20 Mg/1 Ml Inj IV Q6H PRN Blood Pressure Insulin Human Regular 0 units 07/26/21 12:00 08/05/21 05:49 Insulin Regular, Human 100 Units/1 Ml SUB-Q Not Given Q6HR [facility] Protocol Labetalol HCl 100 mg 07/28/21 10:00 08/05/21 09:04 Labetalol 100 Mg Tab FEEDTUBE 100 mg BID BLANCA Administration Ondansetron HCl 4 mg 07/25/21 16:00 Ondansetron 4 Mg/2 Ml Inj IV Q8H PRN Nausea And Vomiting Oxycodone/Acetaminophen 1 tab 07/27/21 12:27 08/05/21 05:53 Oxycodone /Acetaminophen 5-325mg Tab PO 1 tab Q6H PRN Administration Pain, Moderate (4-6) Polyethylene Glycol 17 gm 07/26/21 17:04 Polyethylene Glycol 3350 17 Gm Powder PO QDAY PRN Constipation Senna/Docusate Sodium 1 tab 07/26/21 22:00 08/04/21 22:03 Sennosides/Docusate Sodium 8.6/50 Mg Tab PO 1 tab QHS BLANCA Administration Simple Syrup 15 ml 07/26/21 14:56 Simple Syrup 15 Ml FEEDTUBE PRN PRN Hypoglycemia Simple Syrup 30 ml 07/26/21 14:56 Simple Syrup 15 Ml FEEDTUBE PRN PRN Hypoglycemia Sodium Bicarbonate 325 mg 07/26/21 14:56 Sodium Bicarbonate 325 Mg Tab FEEDTUBE PRN PRN For Clogged Feeding Tube Sodium Chloride 10 ml 07/25/21 22:00 08/05/21 09:05 Sodium Chloride 0.9% 10 Ml Flush Syringe IV 10 ml BID BLANCA Administration Sodium Chloride 10 ml 07/25/21 16:00 07/26/21 00:08 Sodium Chloride 0.9% 10 Ml Flush Syringe IV 10 ml PRN PRN Administration LINE FLUSH Nutrition/Malnutrition Assess - Dietary Evaluation Nutrition/Malnutrition Findings: Nutrition Notes Start: 07/26/21 14:26 Freq: Status: Active Protocol: Document 07/31/21 14:46 BRIAN (Rec: 07/31/21 14:52 BRIAN [email or web address]) Nutrition Notes Initial or Follow up Reassessment Current Diagnosis Acute Kidney Injury,Diabetes, Hypertension,Respiratory Failure Other Pertinent Diagnosis Pneu Current Diet TF - Glucerna 1.2 at 55ml/hr Labs/Tests BUN 30 Cr 2.1 Pertinent Medications Reviewed Height 6 ft Weight 110 kg [place] Body Weight (kg) 80.90 BMI 32.8 Weight change and time frame Wt change noted Weight Status Obese Subjective/Other Information Pt now on T-piece with 35% FiO2. Per RN, he is tolerating TF at goal rate of 55ml/hr. Per nephrology note on yesterday, no need for dialysis at this time. Percent of energy/protein needs met: 68% energy 100% pro Burn Absent Trauma Absent #1 Nutrition Diagnosis Swallowing difficulty Diagnosis Progress(for reassessment Continues documentation) Is patient on ventilator? No Is Patient Ambulatory and/or Out of Bed No REE-([place]. Jeor-confined to bed) [phone] Calculation Used for Recommendations 65-70% REE Additional Notes Energy needs: 2319-7672 kcal/ day Pro needs 0.8-1.2g/kg adjBW: 76-115g/day Fluid needs 1ml/kcal Nutrition Intervention Nutrition Support: Continue Glucerna 1.2 at 55ml/ hr with 85ml water flush q4h. Kcal 1,584 Protein (gm) 79 Carbohydrates (gm) 151 Fat (gm) 79 Fluid (mL) 1,063 Fiber (gm) 21 Goal #1 TF tolerance Goal #2 TF to meet 65-70% energy and at least 75% pro needs Follow-Up By: 08/07/21 Additional Comments F/U: stable TF, wt, renal function
[2021-08-05] MEDS: SENNOSIDES/DOCUSATE SODIUM 8.6/50 MG TAB PO SCH (21:24)
[2021-08-06] MEDS: INSULIN REGULAR, HUMAN 100 UNITS/1 ML SUB-Q SCH ×4 (00:41→17:42)
[2021-08-06] MEDS: ACETAMINOPHEN 325 MG TAB PO PRN (01:23)
[2021-08-06 05:26] LABS: Basophils % (Auto) 0.7 % (0.0-1.8); Eosinophils # (Auto) 0.2 K/mm3 (0.0-0.4); Eosinophils % (Auto) 3.5 % (0.0-4.3); Hemoglobin 11.6 gm/dl (11.8-15.2); Lymphocytes # (Auto) 2.2 K/mm3 (1.2-5.4); Lymphocytes % (Auto) 41.3 % (13.4-35.0); Mean Corpuscular HGB Conc 32 % (32-34); Mean Corpuscular Volume 85 fl (84-94); Monocytes # (Auto) 0.7 K/mm3 (0.0-0.8); Monocytes % (Auto) 13.9 % (0.0-7.3); Platelet Count 281 K/mm3 (140-440); Red Blood Count 4.24 M/mm3 (3.65-5.03)
[2021-08-06] MEDS: hydrALAZINE 25 MG TAB PO SCH ×3 (05:55→22:05)
[2021-08-06 05:58] LABS: Calcium 9.8 mg/dL (8.4-10.2)
--- NOTE | 2021-08-06 07:47 | Progress Note ---
Subjective Principal diagnosis: Ac and ch hypoxemic and hypercapnic Resp Failure; HCAP; AE- CHF; s/p Trach Interval history: Assessment and plan #Acute kidney injury remarkable improvement in renal function, creatinine is currently trending down to 1.5, baseline creatinine is around 0.8-1.1 #Low-grade proteinuria with acute kidney injury, needs to be followed, #Most likely the etiology of renal failure appears to be due to COVID-19 infection cardiorenal, hypoxic variety of respiratory failure currently has a tracheostomy #Abstain from any form of ODALYS ARB or NSAIDs for now #We will follow-up in the office upon discharge in a week or 2 Patient was adequately counseled and educated regarding all the renal related issues, relevant renal related labs were also discussed and all questions were answered If there are any renal related issues in regards to this patient please feel free to reach out without any hesitation at [phone] We'll continue to follow and make recommendation for renal standpoint. Progress note by: Florian Pineda MD [address] [place] [id number] Tele [phone] [email or web address] Patient was seen today for follow-up of multiple renal related issues No complaints of any chest pain pressure or shortness of breath Interdisciplinary notes that also reviewed Events of 24 hours vitals labs intake output medications were reviewed Past medical history: Reviewed Family history: Reviewed Social history: Reviewed Allergies: Reviewed Physical examination: Vitals: Reviewed HEENT: No pallor or icterus oral mucosa moist Neck: Patient has tracheotomy Chest: Bilateral clear to auscultation anteriorly Heart: Regular rate and rhythm S1-S2 heard no S3-S4 Abdomen: Soft nontender no voluntary guarding rigidity rebound Extremity: Dry skin less than 1+ peripheral edema Psychiatric: No evidence of agitation and aggression noted Dermatology: No petechial rashes Labs and x-rays: Reviewed from today Objective - Vital Signs Vital signs: Vital Signs - 12hr 08/05/21 08/05/21 08/05/21 20:27 21:21 21:24 Temperature 98.6 F Pulse Rate 90 Pulse Rate [ 89 Bilateral Throughout] Respiratory 18 Rate Respiratory 19 Rate [Bilateral Throughout] Blood Pressure 130/81 130/81 O2 Sat by Pulse 98 98 Oximetry O2 Sat by Pulse 98 Oximetry [ Assessment] 08/05/21 08/05/21 08/05/21 21:25 22:28 23:57 Temperature 97.5 F L Pulse Rate 82 Pulse Rate [ Bilateral Throughout] Respiratory 20 Rate Respiratory Rate [Bilateral Throughout] Blood Pressure 130/81 136/71 O2 Sat by Pulse 96 97 Oximetry O2 Sat by Pulse Oximetry [ Assessment] 08/06/21 08/06/21 08/06/21 04:22 05:47 05:55 Temperature 98.0 F Pulse Rate 91 H Pulse Rate [ Bilateral Throughout] Respiratory 20 Rate Respiratory Rate [Bilateral Throughout] Blood Pressure 168/83 168/83 O2 Sat by Pulse 98 98 Oximetry O2 Sat by Pulse Oximetry [ Assessment] - Lab 08/06/21 05:04 08/06/21 05:04 Most recent lab results ABG pH 7.449 pH Units (7.350-7.450) 07/29/21 20:45 ABG pCO2 51.3 mm Hg 07/29/21 20:45 ABG pO2 85.8 mm Hg (80.0-90.0) 07/29/21 20:45 ABG HCO3 34.7 mmol/L (20.0-26.0) H 07/29/21 20:45 ABG O2 Saturation 97.0 % (95.0-99.0) 07/29/21 20:45 Calcium 9.8 mg/dL (8.4-10.2) 08/06/21 05:04 Urine Creatinine 105.6 mg/dL (0.1-20.0) H 07/27/21 17:45 Urine Creatinine 106.0 mg/dL (0.1-20.0) H 07/27/21 17:45 Urine Sodium 46 mmol/L 07/27/21 17:45 Urine Total Protein 30 mg/dL (5-11.8) H 07/27/21 17:45 Medications & Allergies - Medications Allergies/Adverse Reactions: Allergies No Known Allergies Allergy (Verified 07/25/21 11:02) Home Medications: Home Medications Medication Instructions Recorded Confirmed Last Taken Type No Known Home Medications [No 01/15/22 06/08/22 Unknown History Reported Home Medications] Apixaban [Eliquis] 5 mg FEEDTUBE Q12HR 30 Days #60 05/02/21 08/02/21 Unknown Rx tablet Doxazosin [Cardura] 1 mg FEEDTUBE BID 30 Days #60 05/02/21 08/02/21 Unknown Rx tablet Famotidine [Pepcid] 20 mg FEEDTUBE BID 30 Days #60 05/02/21 08/02/21 Unknown Rx tablet Glycopyrrolate 2 mg PO TID 30 Days #90 tablet 05/02/21 08/02/21 Unknown Rx Insulin Glargine [Lantus VIAL] 18 units SUB-Q QHS 30 Days #2 vial 05/02/21 08/02/21 Unknown Rx Metoprolol [Lopressor TAB] 12.5 mg FEEDTUBE BID 30 Days #60 05/02/21 08/02/21 Unknown Rx tablet amLODIPine 10 mg FEEDTUBE DAILY 30 Days #30 05/02/21 08/02/21 Unknown Rx tablet cephALEXin [Keflex] 500 mg PO Q8HR 2 Days #6 cap 05/02/21 08/02/21 Unknown Rx hydrALAZINE [Apresoline TAB] 50 mg FEEDTUBE Q8HR 30 Days #90 05/02/21 08/02/21 Unknown Rx tablet Active Medications: Generic Name Dose Route Start Last Admin Trade Name Freq PRN Reason Stop Dose Admin Acetaminophen 650 mg 07/25/21 16:00 08/06/21 01:23 Acetaminophen 325 Mg Tab PO 650 mg Q4H PRN Administration Pain MILD(1-3)/Fever >100.5/RAYO Albuterol/Ipratropium 1 ampul 08/03/21 14:00 08/05/21 20:16 Ipratropium/Albuterol Sulfate 3 Ml Ampul.Neb IH 1 ampul TIDRT BLANCA Administration Amlodipine Besylate 10 mg 07/28/21 10:00 08/05/21 09:04 Amlodipine 5 Mg Tab FEEDTUBE 10 mg QDAY BLANCA Administration Lipase/Protease/Amylase 1 each 07/26/21 14:56 Lipase 10,500/Protease 25,000/Amylase 43,750 (Units) Dr Zambrano FEEDTUBE PRN PRN For Clogged Feeding Tube Dextrose 50 ml 07/26/21 12:22 Dextrose 50% In Water (25gm) 50 Ml Syringe IV Q30MIN PRN Hypoglycemia Protocol Famotidine 10 mg 07/27/21 10:00 08/05/21 21:23 Famotidine 10 Mg Tab FEEDTUBE 10 mg BID BLANCA Administration Heparin Sodium (Porcine) 5,000 unit 07/25/21 16:00 08/05/21 21:24 Heparin 5,000 Unit/1 Ml Vial SUB-Q 5,000 unit Q12HR BLANCA Administration Hydralazine HCl 25 mg 07/30/21 14:00 08/06/21 05:55 Hydralazine 25 Mg Tab PO 25 mg Q8HR BLANCA Administration Hydralazine HCl 15 mg 07/30/21 07:44 Hydralazine 20 Mg/1 Ml Inj IV Q6H PRN Blood Pressure Insulin Human Regular 0 units 07/26/21 12:00 08/06/21 07:12 Insulin Regular, Human 100 Units/1 Ml SUB-Q Not Given Q6HR [facility] Protocol Labetalol HCl 100 mg 07/28/21 10:00 08/05/21 21:25 Labetalol 100 Mg Tab FEEDTUBE 100 mg BID BLANCA Administration Ondansetron HCl 4 mg 07/25/21 16:00 Ondansetron 4 Mg/2 Ml Inj IV Q8H PRN Nausea And Vomiting Oxycodone/Acetaminophen 1 tab 07/27/21 12:27 08/05/21 05:53 Oxycodone /Acetaminophen 5-325mg Tab PO 1 tab Q6H PRN Administration Pain, Moderate (4-6) Polyethylene Glycol 17 gm 07/26/21 17:04 Polyethylene Glycol 3350 17 Gm Powder PO QDAY PRN Constipation Senna/Docusate Sodium 1 tab 07/26/21 22:00 08/05/21 21:24 Sennosides/Docusate Sodium 8.6/50 Mg Tab PO 1 tab QHS BLANCA Administration Simple Syrup 15 ml 07/26/21 14:56 Simple Syrup 15 Ml FEEDTUBE PRN PRN Hypoglycemia Simple Syrup 30 ml 07/26/21 14:56 Simple Syrup 15 Ml FEEDTUBE PRN PRN Hypoglycemia Sodium Bicarbonate 325 mg 07/26/21 14:56 Sodium Bicarbonate 325 Mg Tab FEEDTUBE PRN PRN For Clogged Feeding Tube Sodium Chloride 10 ml 07/25/21 22:00 08/05/21 21:28 Sodium Chloride 0.9% 10 Ml Flush Syringe IV 10 ml BID BLANCA Administration Sodium Chloride 10 ml 07/25/21 16:00 07/26/21 00:08 Sodium Chloride 0.9% 10 Ml Flush Syringe IV 10 ml PRN PRN Administration LINE FLUSH
[2021-08-06] MEDS: IPRATROPIUM/ALBUTEROL SULFATE 3 ML AMPUL.NEB IH SCH ×3 (08:34→21:27)
[2021-08-06] MEDS: HEPARIN 5,000 UNIT/1 ML VIAL SUB-Q SCH ×2 (10:33→21:56)
[2021-08-06] MEDS: FAMOTIDINE 10 MG TAB FEEDTUBE SCH ×2 (10:33→21:56)
[2021-08-06] MEDS: amLODIPine 5 MG TAB FEEDTUBE SCH (10:33)
--- NOTE | 2021-08-06 13:22 | Progress Note ---
Assessment and Plan Acute and chronic Respiratory Failure with Hypoxia and Hypercapnia 2/2 HCAP and CHF exacerbation s/p MVS Tracheostomy status Oropharyngeal dysphagia s/p PEG h/o Ischemic cardiomyopathy HCAP AE-CHF exacerbation The patient is phonating around the tracheostomy but unable to pass catheter down the trach Get CT neck to evaluate anatomy- CT neck yet to be done Consult placed for [employer] for PMV trials Continue PT/OT, increase activity -Trach care, airway clearance, secretion management -Titrate supplemental oxygen to keep SpO2 89-90% -Bronchodilators -Modified diet with aspiration precautions - continue contact isolation re: MRSA - continue bronchodilators with pulmonary hygiene per RT - continue accuchecks with glycemic control per SSI for target blood glucose of < 180 mg/dL; avoid hypoglycemia - avoid nephrotoxins, renally dose all medications - continue to avoid benzodiazepines, reduce the possibility of delirium - prn analgesia per pain score - Maintenance of sleep-wake cycle, avoid delirium - VTE prophylaxis - continue other care per attending / other consultants - discharge planning ongoing concurrently Subjective Date of service: 08/06/21 Principal diagnosis: Ac and ch hypoxemic and hypercapnic Resp Failure; HCAP; AE- CHF; s/p Trach Interval history: Patient is seen today for: Acute and chronic hypoxemic and hypercapnic Respiratory Failure; HCAP; AE-CHF; s/p Tracheostomy; H/O Ischemic cardiomyopathy Seen and examined at bedside; 24hour events reviewed; nursing and respiratory care staff consulted; no adverse overnight events reported to me; resting peacefully in bed;talking around trach; trach to ATC; tolerating a modified diet. Unable to advance suction tubing down the tracheostomy- waiting fro CT neck Objective Vital Signs - 12hr 08/06/21 08/06/21 08/06/21 04:22 05:47 05:55 Temperature 98.0 F Pulse Rate 91 H Pulse Rate [ Bilateral Throughout] Respiratory 20 Rate Respiratory Rate [Bilateral Throughout] Blood Pressure 168/83 168/83 Blood Pressure [Left] O2 Sat by Pulse 98 98 Oximetry 08/06/21 08/06/21 08/06/21 08:33 08:34 10:30 Temperature 97.3 F L Pulse Rate 93 H Pulse Rate [ 88 Bilateral Throughout] Respiratory 18 Rate Respiratory 20 Rate [Bilateral Throughout] Blood Pressure Blood Pressure 123/85 [Left] O2 Sat by Pulse 98 94 Oximetry Constitutional: no acute distress, alert, other (atraumatic, normocephalic, trach to ATC) Eyes: non-icteric ENT: oropharynx moist, other (midline tracheostomy) Neck: supple, no lymphadenopathy, no JVD Effort: normal Ascultation: Bilateral: diminished breath sounds, wheezes, rhonchi (scant) Percussion: Bilateral: not dull Cardiovascular: regular rate and rhythm, other (S1,S2) Gastrointestinal: normoactive bowel sounds, soft, non-tender, non-distended (protuberant), other (PEG) Integumentary: normal Extremities: no cyanosis, pulses normal, no ischemia or petechiae, edema Neurologic: normal mental status, non-focal exam, pupils equal and round, CN II- XII normal, motor strength normal and, other (moves all extremities) Psychiatric: mood appropriate, affect normal CBC and BMP: 08/06/21 05:04 08/07/21 10:49 ABG, PT/INR, D-dimer: ABG ABG pH 7.449 pH Units (7.350-7.450) 07/29/21 20:45 ABG pCO2 51.3 mm Hg 07/29/21 20:45 ABG pO2 85.8 mm Hg (80.0-90.0) 07/29/21 20:45 ABG O2 Saturation 97.0 % (95.0-99.0) 07/29/21 20:45 Abnormal lab findings: Abnormal Labs 07/25/21 07/25/21 07/25/21 11:19 21:50 Unknown WBC 18.1 H Hgb Hct MCV MCH RDW 16.2 H Lymph % (Auto) [place] % (Auto) Seg Neuts % (Manual) Lymphocytes % (Manual) Monocytes % (Manual) Seg Neutrophils # Man 12.1 H Lymphocytes # (Manual) ABG pH 6.917 L* ABG pO2 331.8 H ABG HCO3 39.3 H ABG O2 Saturation 99.4 H ABG Base Excess ABG Hemoglobin 12.1 L Oxyhemoglobin Sodium Potassium Chloride Carbon Dioxide BUN Creatinine Glucose POC Glucose Lactic Acid C-Reactive Protein Albumin Hfpqv-4-Xwernftgm PEP Interpretation Urine WBC (Auto) 26.0 H Urine Creatinine Urine Total Protein 07/25/21 07/25/21 07/25/21 Unknown Unknown Unknown WBC Hgb Hct MCV MCH RDW Lymph % (Auto) [place] % (Auto) Seg Neuts % (Manual) Lymphocytes % (Manual) Monocytes % (Manual) Seg Neutrophils # Man Lymphocytes # (Manual) ABG pH 7.029 L* ABG pO2 97.5 H ABG HCO3 37.2 H ABG O2 Saturation 93.5 L ABG Base Excess ABG Hemoglobin 12.7 L Oxyhemoglobin 91.7 L Sodium 129 L Potassium Chloride 90.1 L Carbon Dioxide BUN 8 L Creatinine Glucose 258 H POC Glucose Lactic Acid 4.90 H* C-Reactive Protein Albumin 3.8 L Qmsgg-0-Eactzcggf PEP Interpretation Urine WBC (Auto) Urine Creatinine Urine Total Protein 07/25/21 07/26/21 07/26/21 Unknown 00:10 03:50 WBC 15.5 H Hgb Hct MCV MCH RDW 15.4 H Lymph % (Auto) [place] % (Auto) Seg Neuts % (Manual) 96.0 H Lymphocytes % (Manual) 3.0 L Monocytes % (Manual) Seg Neutrophils # Man 14.9 H Lymphocytes # (Manual) 0.5 L ABG pH 7.217 L ABG pO2 162.9 H ABG HCO3 34.3 H ABG O2 Saturation ABG Base Excess 4.0 H ABG Hemoglobin 12.5 L Oxyhemoglobin Sodium Potassium Chloride Carbon Dioxide BUN Creatinine Glucose POC Glucose 158 H Lactic Acid C-Reactive Protein Albumin Qmwri-0-Tsofhempn PEP Interpretation Urine WBC (Auto) Urine Creatinine Urine Total Protein 07/26/21 07/26/21 07/26/21 03:50 04:30 07:44 WBC Hgb Hct MCV MCH RDW Lymph % (Auto) [place] % (Auto) Seg Neuts % (Manual) Lymphocytes % (Manual) Monocytes % (Manual) Seg Neutrophils # Man Lymphocytes # (Manual) ABG pH 7.170 L* ABG pO2 65.5 L ABG HCO3 33.9 H ABG O2 Saturation ABG Base Excess ABG Hemoglobin 12.0 L Oxyhemoglobin 93.5 L Sodium 132 L Potassium 6.0 H D 5.6 H Chloride 93.2 L Carbon Dioxide BUN Creatinine Glucose 171 H POC Glucose Lactic Acid C-Reactive Protein Albumin 3.7 L Lzqrc-9-Hgjoepaqp PEP Interpretation Urine WBC (Auto) Urine Creatinine Urine Total Protein 07/26/21 07/26/21 07/27/21 12:34 17:18 04:54 WBC 11.9 H Hgb 11.1 L Hct 34.5 L MCV MCH 27 L RDW 15.5 H Lymph % (Auto) [place] % (Auto) Seg Neuts % (Manual) Lymphocytes % (Manual) Monocytes % (Manual) Seg Neutrophils # Man Lymphocytes # (Manual) ABG pH 7.286 L ABG pO2 100.0 H ABG HCO3 31.4 H ABG O2 Saturation ABG Base Excess 3.2 H ABG Hemoglobin 11.8 L Oxyhemoglobin Sodium Potassium Chloride Carbon Dioxide BUN Creatinine Glucose POC Glucose 111 H Lactic Acid C-Reactive Protein Albumin Ciqrn-8-Wiogpnrgq PEP Interpretation Urine WBC (Auto) Urine Creatinine Urine Total Protein 07/27/21 07/27/21 07/27/21 04:54 10:30 15:57 WBC Hgb Hct MCV MCH RDW Lymph % (Auto) [place] % (Auto) Seg Neuts % (Manual) Lymphocytes % (Manual) Monocytes % (Manual) Seg Neutrophils # Man Lymphocytes # (Manual) ABG pH ABG pO2 76.9 L ABG HCO3 30.2 H ABG O2 Saturation ABG Base Excess 3.9 H ABG Hemoglobin 11.2 L Oxyhemoglobin Sodium 136 L Potassium Chloride Carbon Dioxide BUN 37 H Creatinine 2.2 H D Glucose POC Glucose Lactic Acid C-Reactive Protein 2.40 H Albumin Bofpa-9-Gxqvkwggi PEP Interpretation Urine WBC (Auto) Urine Creatinine Urine Total Protein 07/27/21 07/27/21 07/27/21 17:45 17:45 17:52 WBC Hgb Hct MCV MCH RDW Lymph % (Auto) [place] % (Auto) Seg Neuts % (Manual) Lymphocytes % (Manual) Monocytes % (Manual) Seg Neutrophils # Man Lymphocytes # (Manual) ABG pH ABG pO2 ABG HCO3 ABG O2 Saturation ABG Base Excess ABG Hemoglobin Oxyhemoglobin Sodium Potassium Chloride Carbon Dioxide BUN Creatinine Glucose POC Glucose 114 H Lactic Acid C-Reactive Protein Albumin Pgegf-9-Hqxmpmbxi PEP Interpretation Urine WBC (Auto) Urine Creatinine 106.0 H 105.6 H Urine Total Protein 30 H 07/28/21 07/28/21 07/28/21 04:32 04:32 04:32 WBC Hgb 11.0 L Hct 34.4 L MCV MCH 27 L RDW 16.0 H Lymph % (Auto) [place] % (Auto) Seg Neuts % (Manual) Lymphocytes % (Manual) Monocytes % (Manual) Seg Neutrophils # Man Lymphocytes # (Manual) ABG pH ABG pO2 ABG HCO3 ABG O2 Saturation ABG Base Excess ABG Hemoglobin Oxyhemoglobin Sodium 135 L Potassium Chloride Carbon Dioxide BUN 40 H Creatinine 2.3 H Glucose 124 H POC Glucose Lactic Acid C-Reactive Protein Albumin 3.0 L Czgrn-6-Hvtdfgoly 0.4 H PEP Interpretation see below H Urine WBC (Auto) Urine Creatinine Urine Total Protein 07/28/21 07/28/21 07/28/21 11:19 13:12 17:34 WBC Hgb Hct MCV MCH RDW Lymph % (Auto) [place] % (Auto) Seg Neuts % (Manual) Lymphocytes % (Manual) Monocytes % (Manual) Seg Neutrophils # Man Lymphocytes # (Manual) ABG pH ABG pO2 103.7 H ABG HCO3 32.7 H ABG O2 Saturation ABG Base Excess 7.1 H ABG Hemoglobin 10.8 L Oxyhemoglobin Sodium Potassium Chloride Carbon Dioxide BUN Creatinine Glucose POC Glucose 117 H 124 H Lactic Acid C-Reactive Protein Albumin Gxqst-6-Oybrlxqvn PEP Interpretation Urine WBC (Auto) Urine Creatinine Urine Total Protein 07/28/21 07/29/21 07/29/21 23:54 05:09 05:39 WBC Hgb Hct MCV MCH RDW Lymph % (Auto) [place] % (Auto) Seg Neuts % (Manual) Lymphocytes % (Manual) Monocytes % (Manual) Seg Neutrophils # Man Lymphocytes # (Manual) ABG pH ABG pO2 ABG HCO3 ABG O2 Saturation ABG Base Excess ABG Hemoglobin Oxyhemoglobin Sodium Potassium Chloride Carbon Dioxide 32 H BUN 34 H Creatinine 2.1 H Glucose 124 H POC Glucose 107 H 120 H Lactic Acid C-Reactive Protein Albumin Uethl-2-Zdnzyqgrk PEP Interpretation Urine WBC (Auto) Urine Creatinine Urine Total Protein 07/29/21 07/29/21 07/29/21 09:00 20:45 23:15 WBC Hgb Hct MCV MCH RDW Lymph % (Auto) [place] % (Auto) Seg Neuts % (Manual) Lymphocytes % (Manual) Monocytes % (Manual) Seg Neutrophils # Man Lymphocytes # (Manual) ABG pH ABG pO2 131.5 H ABG HCO3 35.1 H 34.7 H ABG O2 Saturation ABG Base Excess 9.1 H 9.3 H ABG Hemoglobin 11.8 L 11.7 L Oxyhemoglobin Sodium Potassium Chloride Carbon Dioxide BUN Creatinine Glucose POC Glucose 114 H Lactic Acid C-Reactive Protein Albumin Cetkt-2-Skjkjraup PEP Interpretation Urine WBC (Auto) Urine Creatinine Urine Total Protein 07/30/21 07/30/21 07/30/21 04:19 04:19 05:25 WBC Hgb 10.9 L Hct 32.6 L MCV 83 L MCH RDW 16.2 H Lymph % (Auto) [place] % (Auto) Seg Neuts % (Manual) Lymphocytes % (Manual) Monocytes % (Manual) Seg Neutrophils # Man Lymphocytes # (Manual) ABG pH ABG pO2 ABG HCO3 ABG O2 Saturation ABG Base Excess ABG Hemoglobin Oxyhemoglobin Sodium Potassium Chloride Carbon Dioxide 33 H BUN 32 H Creatinine 2.2 H Glucose 108 H POC Glucose 109 H Lactic Acid C-Reactive Protein Albumin Buyxm-9-Uezyoytfw PEP Interpretation Urine WBC (Auto) Urine Creatinine Urine Total Protein 07/31/21 07/31/21 07/31/21 04:26 05:35 23:23 WBC Hgb Hct MCV MCH RDW Lymph % (Auto) [place] % (Auto) Seg Neuts % (Manual) Lymphocytes % (Manual) Monocytes % (Manual) Seg Neutrophils # Man Lymphocytes # (Manual) ABG pH ABG pO2 ABG HCO3 ABG O2 Saturation ABG Base Excess ABG Hemoglobin Oxyhemoglobin Sodium Potassium Chloride Carbon Dioxide 32 H BUN 30 H Creatinine 2.1 H Glucose 108 H POC Glucose 124 H 116 H Lactic Acid C-Reactive Protein Albumin Mjtrd-5-Jcreempju PEP Interpretation Urine WBC (Auto) Urine Creatinine Urine Total Protein 08/01/21 08/01/21 08/01/21 05:42 11:49 16:42 WBC Hgb Hct MCV MCH RDW Lymph % (Auto) [place] % (Auto) Seg Neuts % (Manual) Lymphocytes % (Manual) Monocytes % (Manual) Seg Neutrophils # Man Lymphocytes # (Manual) ABG pH ABG pO2 ABG HCO3 ABG O2 Saturation ABG Base Excess ABG Hemoglobin Oxyhemoglobin Sodium Potassium Chloride Carbon Dioxide 33 H BUN 29 H Creatinine 2.0 H Glucose 106 H POC Glucose 111 H 65 L Lactic Acid C-Reactive Protein Albumin Gvezv-6-Nirgxzqyv PEP Interpretation Urine WBC (Auto) Urine Creatinine Urine Total Protein 08/03/21 08/03/21 08/04/21 00:07 12:26 05:15 WBC Hgb 11.3 L Hct 34.2 L MCV MCH RDW 17.2 H Lymph % (Auto) [place] % (Auto) Seg Neuts % (Manual) Lymphocytes % (Manual) Monocytes % (Manual) 10.0 H Seg Neutrophils # Man Lymphocytes # (Manual) ABG pH ABG pO2 ABG HCO3 ABG O2 Saturation ABG Base Excess ABG Hemoglobin Oxyhemoglobin Sodium Potassium Chloride Carbon Dioxide BUN Creatinine Glucose POC Glucose 111 H 115 H Lactic Acid C-Reactive Protein Albumin Zkues-3-Wqgmaodou PEP Interpretation Urine WBC (Auto) Urine Creatinine Urine Total Protein 08/04/21 08/04/21 08/05/21 05:15 07:31 11:29 WBC Hgb Hct MCV MCH RDW Lymph % (Auto) [place] % (Auto) Seg Neuts % (Manual) Lymphocytes % (Manual) Monocytes % (Manual) Seg Neutrophils # Man Lymphocytes # (Manual) ABG pH ABG pO2 ABG HCO3 ABG O2 Saturation ABG Base Excess ABG Hemoglobin Oxyhemoglobin Sodium Potassium Chloride Carbon Dioxide BUN 29 H Creatinine 1.9 H Glucose 104 H POC Glucose 109 H 131 H Lactic Acid C-Reactive Protein Albumin Zpzmz-2-Lccxtbhos PEP Interpretation Urine WBC (Auto) Urine Creatinine Urine Total Protein 08/06/21 08/06/21 08/06/21 05:04 05:04 05:45 WBC Hgb 11.6 L Hct MCV MCH 27 L RDW 17.0 H Lymph % (Auto) 41.3 H [place] % (Auto) 13.9 H Seg Neuts % (Manual) Lymphocytes % (Manual) Monocytes % (Manual) Seg Neutrophils # Man Lymphocytes # (Manual) ABG pH ABG pO2 ABG HCO3 ABG O2 Saturation ABG Base Excess ABG Hemoglobin Oxyhemoglobin Sodium Potassium Chloride Carbon Dioxide BUN 22 H Creatinine 1.5 H Glucose POC Glucose 106 H Lactic Acid C-Reactive Protein Albumin Xmfbt-8-Rqjvzeame PEP Interpretation Urine WBC (Auto) Urine Creatinine Urine Total Protein 08/06/21 11:36 WBC Hgb Hct MCV MCH RDW Lymph % (Auto) [place] % (Auto) Seg Neuts % (Manual) Lymphocytes % (Manual) Monocytes % (Manual) Seg Neutrophils # Man Lymphocytes # (Manual) ABG pH ABG pO2 ABG HCO3 ABG O2 Saturation ABG Base Excess ABG Hemoglobin Oxyhemoglobin Sodium Potassium Chloride Carbon Dioxide BUN Creatinine Glucose POC Glucose 109 H Lactic Acid C-Reactive Protein Albumin Hhxsh-8-Qpxctbtto PEP Interpretation Urine WBC (Auto) Urine Creatinine Urine Total Protein Allied health notes reviewed: RT
[2021-08-06] MEDS: SENNOSIDES/DOCUSATE SODIUM 8.6/50 MG TAB PO SCH (21:56)
[2021-08-07] MEDS: INSULIN REGULAR, HUMAN 100 UNITS/1 ML SUB-Q SCH ×4 (01:23→21:32)
[2021-08-07] MEDS: hydrALAZINE 25 MG TAB PO SCH ×3 (05:42→21:31)
[2021-08-07] MEDS: IPRATROPIUM/ALBUTEROL SULFATE 3 ML AMPUL.NEB IH SCH ×3 (08:11→21:00)
[2021-08-07] MEDS: FAMOTIDINE 10 MG TAB FEEDTUBE SCH ×2 (09:18→21:31)
[2021-08-07] MEDS: HEPARIN 5,000 UNIT/1 ML VIAL SUB-Q SCH ×2 (09:19→21:31)
[2021-08-07] MEDS: amLODIPine 5 MG TAB FEEDTUBE SCH (09:21)
--- NOTE | 2021-08-07 09:27 | Progress Note ---
Assessment and Plan Impression * Nonoliguric acute kidney injury --Hep B/C negative, ANCA neg, C3/C4 wnl, PUMA neg, dsDNA neg --Urine eos negative; UPCR 280mg * Acute on chronic hypoxic respiratory failure * HCAP * Urinary retention * Ischemic cardiomyopathy * Hypertension * Type II diabetes mellitus Recommendations * Renal function gradually improved - AM labs not available at time of visit * Will order BMP * Continue conservative management * Monitor fluid status and electrolytes closely * Dose medications for renal function * Avoid potential nephrotoxins * If renal function remains stable/improved, will follow peripherally Subjective Date of service: 08/07/21 Principal diagnosis: Ac and ch hypoxemic and hypercapnic Resp Failure; HCAP; AE- CHF; s/p Trach Interval history: Patient has no complaints today Objective - Vital Signs Vital signs: Vital Signs - 12hr 08/06/21 08/06/21 08/06/21 21:40 22:05 22:15 Temperature Pulse Rate Pulse Rate [ 91 H Bilateral Throughout] Respiratory Rate Respiratory 18 Rate [Bilateral Throughout] Blood Pressure 166/93 Blood Pressure [Left] O2 Sat by Pulse 97 Oximetry 08/06/21 08/07/21 08/07/21 22:24 04:54 08:10 Temperature 98.1 F 98.0 F Pulse Rate 96 H 92 H Pulse Rate [ Bilateral Throughout] Respiratory 22 20 Rate Respiratory Rate [Bilateral Throughout] Blood Pressure 171/92 Blood Pressure 158/89 [Left] O2 Sat by Pulse 97 96 98 Oximetry 08/07/21 08/07/21 08:11 09:14 Temperature Pulse Rate 102 H Pulse Rate [ 92 H Bilateral Throughout] Respiratory 20 Rate Respiratory 20 Rate [Bilateral Throughout] Blood Pressure 112/70 Blood Pressure [Left] O2 Sat by Pulse 97 Oximetry - General Appearance General appearance: well-developed EENT: ATNC Neck: other (trach) Respiratory: Present: Clear to Ascultation Cardiology: regular, S1S2, other (no edema) Integumentary: warm and dry Neurologic: alert and oriented x3 Psychiatric: cooperative - Lab 08/06/21 05:04 08/06/21 05:04 Most recent lab results ABG pH 7.449 pH Units (7.350-7.450) 07/29/21 20:45 ABG pCO2 51.3 mm Hg 07/29/21 20:45 ABG pO2 85.8 mm Hg (80.0-90.0) 07/29/21 20:45 ABG HCO3 34.7 mmol/L (20.0-26.0) H 07/29/21 20:45 ABG O2 Saturation 97.0 % (95.0-99.0) 07/29/21 20:45 Calcium 9.8 mg/dL (8.4-10.2) 08/06/21 05:04 Urine Creatinine 105.6 mg/dL (0.1-20.0) H 07/27/21 17:45 Urine Creatinine 106.0 mg/dL (0.1-20.0) H 07/27/21 17:45 Urine Sodium 46 mmol/L 07/27/21 17:45 Urine Total Protein 30 mg/dL (5-11.8) H 07/27/21 17:45 Medications & Allergies - Medications Allergies/Adverse Reactions: Allergies No Known Allergies Allergy (Verified 07/25/21 11:02) Home Medications: Home Medications Medication Instructions Recorded Confirmed Last Taken Type No Known Home Medications [No 03/11/21 08/02/21 Unknown History Reported Home Medications] Apixaban [Eliquis] 5 mg FEEDTUBE Q12HR 30 Days #60 05/02/21 08/02/21 Unknown Rx tablet Doxazosin [Cardura] 1 mg FEEDTUBE BID 30 Days #60 05/02/21 08/02/21 Unknown Rx tablet Famotidine [Pepcid] 20 mg FEEDTUBE BID 30 Days #60 05/02/21 08/02/21 Unknown Rx tablet Glycopyrrolate 2 mg PO TID 30 Days #90 tablet 05/02/21 08/02/21 Unknown Rx Insulin Glargine [Lantus VIAL] 18 units SUB-Q QHS 30 Days #2 vial 05/02/21 08/02/21 Unknown Rx Metoprolol [Lopressor TAB] 12.5 mg FEEDTUBE BID 30 Days #60 05/02/21 08/02/21 Unknown Rx tablet amLODIPine 10 mg FEEDTUBE DAILY 30 Days #30 05/02/21 08/02/21 Unknown Rx tablet cephALEXin [Keflex] 500 mg PO Q8HR 2 Days #6 cap 05/02/21 08/02/21 Unknown Rx hydrALAZINE [Apresoline TAB] 50 mg FEEDTUBE Q8HR 30 Days #90 05/02/21 08/02/21 Unknown Rx tablet Active Medications: Generic Name Dose Route Start Last Admin Trade Name Freq PRN Reason Stop Dose Admin Acetaminophen 650 mg 07/25/21 16:00 08/06/21 01:23 Acetaminophen 325 Mg Tab PO 650 mg Q4H PRN Administration Pain MILD(1-3)/Fever >100.5/RAYO Albuterol/Ipratropium 1 ampul 08/03/21 14:00 08/07/21 08:11 Ipratropium/Albuterol Sulfate 3 Ml Ampul.Neb IH 1 ampul TIDRT BLANCA Administration Amlodipine Besylate 10 mg 07/28/21 10:00 08/07/21 09:21 Amlodipine 5 Mg Tab FEEDTUBE Not Given QDAY BLANCA Lipase/Protease/Amylase 1 each 07/26/21 14:56 Lipase 10,500/Protease 25,000/Amylase 43,750 (Units) Dr Juan Manuel FEEDTUBE PRN PRN For Clogged Feeding Tube Dextrose 50 ml 07/26/21 12:22 Dextrose 50% In Water (25gm) 50 Ml Syringe IV Q30MIN PRN Hypoglycemia Protocol Famotidine 10 mg 07/27/21 10:00 08/07/21 09:18 Famotidine 10 Mg Tab FEEDTUBE 10 mg BID BLANCA Administration Heparin Sodium (Porcine) 5,000 unit 07/25/21 16:00 08/07/21 09:19 Heparin 5,000 Unit/1 Ml Vial SUB-Q 5,000 unit Q12HR BLANCA Administration Hydralazine HCl 25 mg 07/30/21 14:00 08/07/21 05:42 Hydralazine 25 Mg Tab PO 25 mg Q8HR BLANCA Administration Hydralazine HCl 15 mg 07/30/21 07:44 Hydralazine 20 Mg/1 Ml Inj IV Q6H PRN Blood Pressure Insulin Human Regular 0 units 07/26/21 12:00 08/07/21 05:48 Insulin Regular, Human 100 Units/1 Ml SUB-Q Not Given Q6HR BLANCA Protocol Labetalol HCl 100 mg 07/28/21 10:00 08/07/21 09:21 Labetalol 100 Mg Tab FEEDTUBE Not Given BID BLANCA Ondansetron HCl 4 mg 07/25/21 16:00 Ondansetron 4 Mg/2 Ml Inj IV Q8H PRN Nausea And Vomiting Oxycodone/Acetaminophen 1 tab 07/27/21 12:27 08/05/21 05:53 Oxycodone /Acetaminophen 5-325mg Tab PO 1 tab Q6H PRN Administration Pain, Moderate (4-6) Polyethylene Glycol 17 gm 07/26/21 17:04 Polyethylene Glycol 3350 17 Gm Powder PO QDAY PRN Constipation Senna/Docusate Sodium 1 tab 07/26/21 22:00 08/06/21 21:56 Sennosides/Docusate Sodium 8.6/50 Mg Tab PO 1 tab QHS BLANCA Administration Simple Syrup 15 ml 07/26/21 14:56 Simple Syrup 15 Ml FEEDTUBE PRN PRN Hypoglycemia Simple Syrup 30 ml 07/26/21 14:56 Simple Syrup 15 Ml FEEDTUBE PRN PRN Hypoglycemia Sodium Bicarbonate 325 mg 07/26/21 14:56 Sodium Bicarbonate 325 Mg Tab FEEDTUBE PRN PRN For Clogged Feeding Tube Sodium Chloride 10 ml 07/25/21 22:00 08/07/21 09:21 Sodium Chloride 0.9% 10 Ml Flush Syringe IV 10 ml BID BLANCA Administration Sodium Chloride 10 ml 07/25/21 16:00 07/26/21 00:08 Sodium Chloride 0.9% 10 Ml Flush Syringe IV 10 ml PRN PRN Administration LINE FLUSH
--- NOTE | 2021-08-07 09:42 | Progress Note ---
Assessment and Plan Assessment and plan: This is a 61-year-old male who is a resident of a longterm facility with chronic hypoxic respiratory failure s/p trach with vent dependency, recent COVID-19 infection, ischemic cardiomyopathy, type 2 diabetes mellitus, obesity who presented to the emergency department on 07/25 via EMS with chief complaints of [facility]. In the emergency department patient was placed on the ventilator as he was tachypneic, dyspneic and did not improve after suctioning. Work-up in the emergency department revealed lactic acidosis, leukocytosis and CXR revealed possible retrocardiac pneumonia and started on antibiotics for HAP. Patient was admitted to the hospitalist service with consults to CCM with acute on chronic respiratory failure and HAP. Assessment and plan: This is a 61 year old male from a SNF with chronic hypoxic resp failure s/p t kaia, recent COVID 19 infection, ischemic cardiomyopathy IDDM, obesity admitted with acute on chronic resp failure, HAP, hyperkalemia, and lactic acidosis. Neuro: NAD -p.o. oxycodone prn -Reorientation as needed -Maintain sleep-wake cycle -CT head continued mild microvascular angiopathy without clear CT evidence of acute intercranial hemorrhage Cardiac: h/o HTN -Cardiology consulted, appreciate recommendations -Blood pressure monitoring per protocol -03/09/21 Echocardiogram LVEF 60-65% -Amlodipine, Labetalol, hydralazine PO (titrate as tolerated) -Avoid ACEi or ARB in setting of MONIK Respiratory: Acute on chronic hypercapnic respiratory failure, s/p trach -CCM consulted, appreciate recommendations -T piece 35 % Fio2 -See RT notes for titration -Pulm hygiene -SPO2 monitoring GI: MO, moderate protein calorie malnutrition -24 hours + 398 mL -PPI -NTR consulted for tube feedings -s/p PEG tube in place -BR: Senokat S : Acute kidney injury (improving), h/o urinary retention -Nephrology consulted, appreciate recommendations -Renal ultrasound shows echogenic kidneys which can be seen with medical renal disease, no hydronephrosis -FeNa indicate prerenal -Monitor intake and output -Renally dose medications -Avoid nephrotoxic medications -Good catheter placed for urinary retention -Trend BMP ID: HAP (POA) -Infectious disease consulted, appreciate recommendations -COVID PCR (-) -MRSA PCR positive -07/25 BC x2 NGTD, UC NGTD -Antibiotic therapy with cefepime -f/u blood culture -Monitor WBC and temperature curve Endo: h/o DM -Avoid hypoglycemia -SSI -Accu-Cheks q. 6 Heme: Leukocytosis -Heparin subq -Trend CBC -Transfuse hemoglobin less than 7 -Monitor for signs of bleeding -SCDs to BLE while in bed Hospital course to date: 07/26: Stopped Solu-Medrol, given For hyperkalemia, started on tube feedings. Remains on fentanyl and Mucomyst 07/27: Renal indices increased, patient did receive Lasix x1 yesterday. Nephrology was consulted. Urine lites and bilateral renal ultrasound pending. Infectious disease consulted. Bladder scan performed and Good catheter placed. COVID 19 PCR negative 07/28: No acute events reported overnight, worsening renal function-nephrology is on the case. Continue with cefepime per ID. Vent changes per CCM. 07/29: Slight improvement to renal function tests, remains on assist control. No acute events reported overnight. 07/30: Patient has been on T-piece all night. Renal function continues slightly worse however patient is still creating urine. Possible transfer to floor or imcu. Per pt he is requesting transfer to another [facility] if needed on discharge. 07/31: IMCU currently. Resting comfortably. no complaints. ST/PT eval. Working with CM for placement back to LTAC. ID okay with discontinuing antibiotics. Discussed patient case with pulmonology as well Dr. Azul 08/01: Patient still requiring 8 L of O2 via T-piece. Case management working for possible placement at LTAC. ID discontinue antibiotics. Continue PMV trials as tolerated. 08/02/2021 Patient still requiring high flow oxygen 08/03/2021. Patient still requiring 8 L of O2 via T-piece. Continue PMV trials as tolerated. 08/04/2021. Patient still requiring large amounts of oxygen. Patient currently with 10 L O2 FiO2 40%. Continue to wean O2 as tolerated. Recheck chest x-ray 08/05/2021. Patient still requiring large amounts of oxygen. Patient currently with 10 L O2 FiO2 40%. Continue to wean O2 as tolerated. Chest x-ray remains negative. Patient appears to have chronic kidney disease with renal function remaining stable at this time, hemoglobin 11.2 creatinine is currently 1.9, slight improvement, felt to be in stage IIIb chronic kidney disease for now needs ongoing monitoring and follow-up 08/06/2021. Patient with T-piece requiring 8 L of O2. Creatinine is stable at 1.5. Nephrology reports patient likely has stage IIIb chronic kidney disease for now needs ongoing monitoring and follow-up 08/07/2021. Patient with T-piece 8 L O2 with FiO2 of 35%. I discussed the case with pulmonary who would like to get CT of neck to assess the anatomy. PMV trials per pulmonary. Patient also with nonoliguric acute kidney injury. Hep B/C negative, ANCA neg, C3/C4 wnl, PUMA neg, dsDNA neg. Urine eos negative; UPCR 280mg. Nephrology following. History Interval history: No new issues overnight Hospitalist Physical - Constitutional Vitals: Temp Pulse Resp BP Pulse Ox 98.0 F 102 H 20 112/70 97 08/07/21 04:54 08/07/21 09:14 08/07/21 09:14 08/07/21 09:14 08/07/21 09:14 General appearance: Present: no acute distress, well-nourished - EENT Eyes: Present: PERRL, EOM intact ENT: hearing intact, clear oral mucosa, dentition normal - Neck Neck: Present: supple, normal ROM - Respiratory Respiratory effort: normal Respiratory: bilateral: CTA - Cardiovascular Rhythm: regular Heart Sounds: Present: S1 & S2. Absent: gallop, rub - Extremities Extremities: no ischemia, No edema, Full ROM - Abdominal General gastrointestinal: soft, non-tender, non-distended, normal bowel sounds - Integumentary Integumentary: Present: clear, warm, dry - Neurologic Neurologic: CNII-XII intact, moves all extremities HEART Score - HEART Score Troponin: Troponin T < 0.010 ng/mL (0.00-0.029) 07/25/21 Unknown Results - Labs CBC & Chem 7: 08/06/21 05:04 08/06/21 05:04 Labs: Laboratory Last Values WBC 5.3 K/mm3 (4.5-11.0) 08/06/21 05:04 RBC 4.24 M/mm3 (3.65-5.03) 08/06/21 05:04 Hgb 11.6 gm/dl (11.8-15.2) L 08/06/21 05:04 Hct 36.0 % (35.5-45.6) 08/06/21 05:04 MCV 85 fl (84-94) 08/06/21 05:04 MCH 27 pg (28-32) L 08/06/21 05:04 MCHC 32 % (32-34) 08/06/21 05:04 RDW 17.0 % (13.2-15.2) H 08/06/21 05:04 Plt Count 281 K/mm3 (140-440) 08/06/21 05:04 Lymph % (Auto) 41.3 % (13.4-35.0) H 08/06/21 05:04 [place] % (Auto) 13.9 % (0.0-7.3) H 08/06/21 05:04 Eos % (Auto) 3.5 % (0.0-4.3) 08/06/21 05:04 Baso % (Auto) 0.7 % (0.0-1.8) 08/06/21 05:04 Lymph # (Auto) 2.2 K/mm3 (1.2-5.4) 08/06/21 05:04 [place] # (Auto) 0.7 K/mm3 (0.0-0.8) 08/06/21 05:04 Eos # (Auto) 0.2 K/mm3 (0.0-0.4) 08/06/21 05:04 Baso # (Auto) 0.0 K/mm3 (0.0-0.1) 08/06/21 05:04 Add Manual Diff Complete 08/04/21 05:15 Total Counted 100 08/04/21 05:15 Seg Neutrophils % 40.6 % (40.0-70.0) 08/06/21 05:04 Seg Neuts % (Manual) 52.0 % (40.0-70.0) 08/04/21 05:15 Band Neutrophils % 0 % 08/04/21 05:15 Lymphocytes % (Manual) 35.0 % (13.4-35.0) 08/04/21 05:15 Reactive Lymphs % (Man) 0 % 08/04/21 05:15 Monocytes % (Manual) 10.0 % (0.0-7.3) H 08/04/21 05:15 Eosinophils % (Manual) 3.0 % (0.0-4.3) 08/04/21 05:15 Basophils % (Manual) 0 % (0.0-1.8) 08/04/21 05:15 Metamyelocytes % 0 % 08/04/21 05:15 Myelocytes % 0 % 08/04/21 05:15 Promyelocytes % 0 % 08/04/21 05:15 Blast Cells % 0 % 08/04/21 05:15 Nucleated RBC % Not Reportable 08/04/21 05:15 Seg Neutrophils # 2.1 K/mm3 (1.8-7.7) 08/06/21 05:04 Seg Neutrophils # Man 3.2 K/mm3 (1.8-7.7) 08/04/21 05:15 Band Neutrophils # 0.0 K/mm3 08/04/21 05:15 Lymphocytes # (Manual) 2.1 K/mm3 (1.2-5.4) 08/04/21 05:15 Abs React Lymphs (Man) 0.0 K/mm3 08/04/21 05:15 Monocytes # (Manual) 0.6 K/mm3 (0.0-0.8) 08/04/21 05:15 Eosinophils # (Manual) 0.2 K/mm3 (0.0-0.4) 08/04/21 05:15 Basophils # (Manual) 0.0 K/mm3 (0.0-0.1) 08/04/21 05:15 Metamyelocytes # 0.0 K/mm3 08/04/21 05:15 Myelocytes # 0.0 K/mm3 08/04/21 05:15 Promyelocytes # 0.0 K/mm3 08/04/21 05:15 Blast Cells # 0.0 K/mm3 08/04/21 05:15 WBC Morphology Not Reportable 08/04/21 05:15 Hypersegmented Neuts Not Reportable 08/04/21 05:15 Hyposegmented Neuts Not Reportable 08/04/21 05:15 Hypogranular Neuts Not Reportable 08/04/21 05:15 Smudge Cells Not Reportable 08/04/21 05:15 Toxic Granulation Not Reportable 08/04/21 05:15 Toxic Vacuolation Not Reportable 08/04/21 05:15 Dohle Bodies Not Reportable 08/04/21 05:15 Pelger-Huet Anomaly Not Reportable 08/04/21 05:15 Mely Rods Not Reportable 08/04/21 05:15 Platelet Estimate Consistent w auto 08/04/21 05:15 Clumped Platelets Not Reportable 08/04/21 05:15 Plt Clumps, EDTA Not Reportable 08/04/21 05:15 Large Platelets Not Reportable 08/04/21 05:15 Giant Platelets Not Reportable 08/04/21 05:15 Platelet Satelliting Not Reportable 08/04/21 05:15 Plt Morphology Comment Not Reportable 08/04/21 05:15 RBC Morphology Normal 08/04/21 05:15 Dimorphic RBCs Not Reportable 08/04/21 05:15 Polychromasia Not Reportable 08/04/21 05:15 Hypochromasia Few 08/04/21 05:15 Poikilocytosis Not Reportable 08/04/21 05:15 Anisocytosis Not Reportable 08/04/21 05:15 Microcytosis Not Reportable 08/04/21 05:15 Macrocytosis Not Reportable 08/04/21 05:15 Spherocytes Not Reportable 08/04/21 05:15 Pappenheimer Bodies Not Reportable 08/04/21 05:15 Sickle Cells Not Reportable 08/04/21 05:15 Target Cells Not Reportable 08/04/21 05:15 Tear Drop Cells Not Reportable 08/04/21 05:15 Ovalocytes Not Reportable 08/04/21 05:15 Helmet Cells Not Reportable 08/04/21 05:15 [place] Bodies Not Reportable 08/04/21 05:15 [place] Rings Not Reportable 08/04/21 05:15 Shama Cells Not Reportable 08/04/21 05:15 Bite Cells Not Reportable 08/04/21 05:15 Crenated Cell Not Reportable 08/04/21 05:15 Elliptocytes Not Reportable 08/04/21 05:15 Acanthocytes (Spur) Not Reportable 08/04/21 05:15 Rouleaux Not Reportable 08/04/21 05:15 Hemoglobin C Crystals Not Reportable 08/04/21 05:15 Schistocytes Not Reportable 08/04/21 05:15 Malaria parasites Not Reportable 08/04/21 05:15 [place]en Bodies Not Reportable 08/04/21 05:15 Hem Pathologist Commnt No 08/04/21 05:15 ABG pH 7.449 pH Units (7.350-7.450) 07/29/21 20:45 ABG pCO2 51.3 mm Hg 07/29/21 20:45 ABG pO2 85.8 mm Hg (80.0-90.0) 07/29/21 20:45 ABG HCO3 34.7 mmol/L (20.0-26.0) H 07/29/21 20:45 ABG O2 Saturation 97.0 % (95.0-99.0) 07/29/21 20:45 ABG O2 Content 15.7 (0.0-44) 07/29/21 20:45 ABG Base Excess 9.3 mmol/L (-2.0-3.0) H 07/29/21 20:45 ABG Hemoglobin 11.7 gm/dl (14.0-18.0) L 07/29/21 20:45 ABG Carboxyhemoglobin 1.2 % (0.0-5.0) 07/29/21 20:45 ABG Methemoglobin 0.6 % (0.0-1.5) 07/29/21 20:45 Oxyhemoglobin 95.2 % (95.0-99.0) 07/29/21 20:45 FiO2 35 % 07/29/21 20:45 Sodium 142 mmol/L (137-145) 08/06/21 05:04 Potassium 4.1 mmol/L (3.6-5.0) 08/06/21 05:04 Chloride 104.5 mmol/L (98-107) 08/06/21 05:04 Carbon Dioxide 29 mmol/L (22-30) 08/06/21 05:04 Anion Gap 13 mmol/L 08/06/21 05:04 BUN 22 mg/dL (9-20) H 08/06/21 05:04 Creatinine 1.5 mg/dL (0.8-1.3) H 08/06/21 05:04 Estimated GFR 47 ml/min 08/06/21 05:04 BUN/Creatinine Ratio 15 % 08/06/21 05:04 Glucose 99 mg/dL (75-100) 08/06/21 05:04 POC Glucose 99 mg/dL (70-105) 08/07/21 05:45 Hemoglobin A1c 5.9 % (4-6) 07/26/21 03:50 Lactic Acid 4.90 mmol/L (0.7-2.0) H* 07/25/21 Unknown Calcium 9.8 mg/dL (8.4-10.2) 08/06/21 05:04 Total Bilirubin 0.20 mg/dL (0.1-1.2) 07/26/21 03:50 AST 19 units/L (5-40) 07/26/21 03:50 ALT 11 units/L (7-56) 07/26/21 03:50 Alkaline Phosphatase 73 units/L (35-129) 07/26/21 03:50 Troponin T < 0.010 ng/mL (0.00-0.029) 07/25/21 Unknown C-Reactive Protein 2.40 mg/dL (0.00-1.30) H 07/27/21 15:57 Serum Total Protein 6.4 g/dL (6.1-8.1) 07/28/21 04:32 Total Protein 8.2 g/dL (6.3-8.2) 07/26/21 03:50 Albumin 3.0 g/dL (3.8-4.8) L 07/28/21 04:32 Albumin/Globulin Ratio 0.8 % 07/26/21 03:50 Czuiu-3-Xpdlmtfiy 0.4 g/dL (0.2-0.3) H 07/28/21 04:32 Ogxhr-5-Mtbycxwqr 0.7 g/dL (0.5-0.9) 07/28/21 04:32 Beta Globulins 0.4 g/dL (0.2-0.5) 07/28/21 04:32 Gamma Globulins 1.5 g/dL (0.8-1.7) 07/28/21 04:32 Abnorm Protein Band 1 see below 07/28/21 04:32 PEP Interpretation see below H 07/28/21 04:32 Procalcitonin 0.77 ng/mL (<0.15) 07/27/21 15:57 Urine Color Yellow (Yellow) 07/25/21 11:19 Urine Turbidity Cloudy (Clear) 07/25/21 11:19 Urine pH 6.0 (5.0-7.0) 07/25/21 11:19 Ur Specific [place] 1.015 (1.003-1.030) 07/25/21 11:19 Urine Protein >500 mg/dL (Negative) 07/25/21 11:19 Urine Glucose (UA) 150 mg/dL (Negative) 07/25/21 11:19 Urine Ketones Neg mg/dL (Negative) 07/25/21 11:19 Urine Blood Neg (Negative) 07/25/21 11:19 Urine Nitrite Neg (Negative) 07/25/21 11:19 Urine Bilirubin Neg (Negative) 07/25/21 11:19 Urine Urobilinogen < 2.0 mg/dL (<2.0) 07/25/21 11:19 Ur Leukocyte Esterase Neg (Negative) 07/25/21 11:19 Urine WBC (Auto) 26.0 /HPF (0.0-6.0) H 07/25/21 11:19 Urine RBC (Auto) 53.0 /HPF (0.0-6.0) 07/25/21 11:19 U Epithel Cells (Auto) 7.0 /HPF (0-13.0) 07/25/21 11:19 Urine Bacteria (Auto) 4+ /HPF (Negative) 07/25/21 11:19 Hyaline Casts 21 /LPF 07/25/21 11:19 Urine Mucus Few /HPF 07/25/21 11:19 Urine Yeast (Budding) 2+ /HPF 07/25/21 11:19 Urine Sperm 3+ /HPF ([employer]) 07/25/21 11:19 Urine Eosinophils None seen (None Seen) 07/27/21 17:45 Urine Creatinine 105.6 mg/dL (0.1-20.0) H 07/27/21 17:45 Urine Creatinine 106.0 mg/dL (0.1-20.0) H 07/27/21 17:45 Protein/Creatinin Ratio 0.28 07/27/21 17:45 Urine Sodium 46 mmol/L 07/27/21 17:45 Urine Total Protein 30 mg/dL (5-11.8) H 07/27/21 17:45 Nasal Screen MRSA (PCR) Positive (Negative) 07/26/21 16:30 PUMA Screen Negative (Negative) 07/27/21 18:17 Proteinase 3 (PR3) Ab <1.0 AI (<1.0) 07/27/21 18:17 Myeloperoxidase Ab <1.0 AI (<1.0) 07/27/21 18:17 Double Strand DNA Ab 1 IU/mL (<=4) 07/27/21 18:17 Complement C3 149 mg/dL (82-185) 07/27/21 18:17 Complement C4 48 mg/dL (15-53) 07/27/21 18:17 Coronavirus (PCR) Negative (Negative) 07/27/21 09:00 SARS-CoV-2 (PCR) Negative (Negative) 07/31/21 13:05 Hepatitis A IgM Ab Non-reactive (NonReactive) 07/27/21 18:17 Hep Bs Antigen Non-reactive (Negative) 07/27/21 18:17 Hep B Core IgM Ab Non-reactive (NonReactive) 07/27/21 18:17 Hepatitis C Antibody Non-reactive (NonReactive) 07/27/21 18:17 Good/IV: Voiding Method Urinal Active Medications - Current Medications Current Medications: Generic Name Dose Route Start Last Admin Trade Name Freq PRN Reason Stop Dose Admin Acetaminophen 650 mg 07/25/21 16:00 08/06/21 01:23 Acetaminophen 325 Mg Tab PO 650 mg Q4H PRN Administration Pain MILD(1-3)/Fever >100.5/RAYO Albuterol/Ipratropium 1 ampul 08/03/21 14:00 08/07/21 08:11 Ipratropium/Albuterol Sulfate 3 Ml Ampul.Neb IH 1 ampul TIDRT BLANCA Administration Amlodipine Besylate 10 mg 07/28/21 10:00 08/07/21 09:21 Amlodipine 5 Mg Tab FEEDTUBE Not Given QDAY BLANCA Lipase/Protease/Amylase 1 each 07/26/21 14:56 Lipase 10,500/Protease 25,000/Amylase 43,750 (Units) Dr Zambrano FEEDTUBE PRN PRN For Clogged Feeding Tube Dextrose 50 ml 07/26/21 12:22 Dextrose 50% In Water (25gm) 50 Ml Syringe IV Q30MIN PRN Hypoglycemia Protocol Famotidine 10 mg 07/27/21 10:00 08/07/21 09:18 Famotidine 10 Mg Tab FEEDTUBE 10 mg BID BLANCA Administration Heparin Sodium (Porcine) 5,000 unit 07/25/21 16:00 08/07/21 09:19 Heparin 5,000 Unit/1 Ml Vial SUB-Q 5,000 unit Q12HR BLANCA Administration Hydralazine HCl 25 mg 07/30/21 14:00 08/07/21 05:42 Hydralazine 25 Mg Tab PO 25 mg Q8HR BLANCA Administration Hydralazine HCl 15 mg 07/30/21 07:44 Hydralazine 20 Mg/1 Ml Inj IV Q6H PRN Blood Pressure Insulin Human Regular 0 units 07/26/21 12:00 08/07/21 05:48 Insulin Regular, Human 100 Units/1 Ml SUB-Q Not Given Q6HR [facility] Protocol Labetalol HCl 100 mg 07/28/21 10:00 08/07/21 09:21 Labetalol 100 Mg Tab FEEDTUBE Not Given BID BLANCA Ondansetron HCl 4 mg 07/25/21 16:00 Ondansetron 4 Mg/2 Ml Inj IV Q8H PRN Nausea And Vomiting Oxycodone/Acetaminophen 1 tab 07/27/21 12:27 08/05/21 05:53 Oxycodone /Acetaminophen 5-325mg Tab PO 1 tab Q6H PRN Administration Pain, Moderate (4-6) Polyethylene Glycol 17 gm 07/26/21 17:04 Polyethylene Glycol 3350 17 Gm Powder PO QDAY PRN Constipation Senna/Docusate Sodium 1 tab 07/26/21 22:00 08/06/21 21:56 Sennosides/Docusate Sodium 8.6/50 Mg Tab PO 1 tab QHS BLANCA Administration Simple Syrup 15 ml 07/26/21 14:56 Simple Syrup 15 Ml FEEDTUBE PRN PRN Hypoglycemia Simple Syrup 30 ml 07/26/21 14:56 Simple Syrup 15 Ml FEEDTUBE PRN PRN Hypoglycemia Sodium Bicarbonate 325 mg 07/26/21 14:56 Sodium Bicarbonate 325 Mg Tab FEEDTUBE PRN PRN For Clogged Feeding Tube Sodium Chloride 10 ml 07/25/21 22:00 08/07/21 09:21 Sodium Chloride 0.9% 10 Ml Flush Syringe IV 10 ml BID BLANCA Administration Sodium Chloride 10 ml 07/25/21 16:00 07/26/21 00:08 Sodium Chloride 0.9% 10 Ml Flush Syringe IV 10 ml PRN PRN Administration LINE FLUSH Nutrition/Malnutrition Assess - Dietary Evaluation Nutrition/Malnutrition Findings: Nutrition Notes Start: 07/26/21 14:26 Freq: Status: Active Protocol: Document 07/31/21 14:46 BRIAN (Rec: 07/31/21 14:52 BRIAN [id number]) Nutrition Notes Initial or Follow up Reassessment Current Diagnosis Acute Kidney Injury,Diabetes, Hypertension,Respiratory Failure Other Pertinent Diagnosis Pneu Current Diet TF - Glucerna 1.2 at 55ml/hr Labs/Tests BUN 30 Cr 2.1 Pertinent Medications Reviewed Height 6 ft Weight 110 kg [place] Body Weight (kg) 80.90 BMI 32.8 Weight change and time frame Wt change noted Weight Status Obese Subjective/Other Information Pt now on T-piece with 35% FiO2. Per RN, he is tolerating TF at goal rate of 55ml/hr. Per nephrology note on yesterday, no need for dialysis at this time. Percent of energy/protein needs met: 68% energy 100% pro Burn Absent Trauma Absent #1 Nutrition Diagnosis Swallowing difficulty Diagnosis Progress(for reassessment Continues documentation) Is patient on ventilator? No Is Patient Ambulatory and/or Out of Bed No REE-(Emmons-St. Jeor-confined to bed) [phone] Calculation Used for Recommendations 65-70% REE Additional Notes Energy needs: 3974-8730 kcal/ day Pro needs 0.8-1.2g/kg adjBW: 76-115g/day Fluid needs 1ml/kcal Nutrition Intervention Nutrition Support: Continue Glucerna 1.2 at 55ml/ hr with 85ml water flush q4h. Kcal 1,584 Protein (gm) 79 Carbohydrates (gm) 151 Fat (gm) 79 Fluid (mL) 1,063 Fiber (gm) 21 Goal #1 TF tolerance Goal #2 TF to meet 65-70% energy and at least 75% pro needs Follow-Up By: 08/07/21 Additional Comments F/U: stable TF, wt, renal function
--- NOTE | 2021-08-07 11:14 | Progress Note ---
Assessment and Plan Acute and chronic Respiratory Failure with Hypoxia and Hypercapnia 2/2 HCAP and CHF exacerbation s/p MVS Tracheostomy status Oropharyngeal dysphagia s/p PEG h/o Ischemic cardiomyopathy HCAP AE-CHF exacerbation The patient is phonating around the tracheostomy but unable to pass catheter down the trach Get CT neck to evaluate anatomy- CT neck yet to be done Discussed [facility] primary service- if there is any tracheal stenosis or malcia will need ENT evaluation prior to discussions on decannulation [employer] for PMV trials Continue PT/OT, increase activity -Trach care, airway clearance, secretion management -Titrate supplemental oxygen to keep SpO2 89-90% -Bronchodilators -Modified diet with aspiration precautions - continue contact isolation re: MRSA - continue bronchodilators with pulmonary hygiene per RT - continue accuchecks with glycemic control per SSI for target blood glucose of < 180 mg/dL; avoid hypoglycemia - avoid nephrotoxins, renally dose all medications - continue to avoid benzodiazepines, reduce the possibility of delirium - prn analgesia per pain score - Maintenance of sleep-wake cycle, avoid delirium - VTE prophylaxis - continue other care per attending / other consultants - discharge planning ongoing concurrently Subjective Date of service: 08/07/21 Principal diagnosis: Ac and ch hypoxemic and hypercapnic Resp Failure; HCAP; AE- CHF; s/p Trach Interval history: Patient is seen today for: Acute and chronic hypoxemic and hypercapnic Respiratory Failure; HCAP; AE-CHF; s/p Tracheostomy; H/O Ischemic cardiomyopathy Seen and examined at bedside; 24hour events reviewed; nursing and respiratory care staff consulted; no adverse overnight events reported to me; resting peacefully in bed;talking around trach; trach to ATC; tolerating a modified d iet. Unable to advance suction tubing down the tracheostomy- waiting fro CT neck Objective Vital Signs - 12hr 08/07/21 08/07/21 08/07/21 04:54 08:10 08:11 Temperature 98.0 F Pulse Rate 92 H Pulse Rate [ 92 H Bilateral Throughout] Respiratory 20 Rate Respiratory 20 Rate [Bilateral Throughout] Blood Pressure Blood Pressure 158/89 [Left] O2 Sat by Pulse 96 98 Oximetry 08/07/21 08/07/21 09:14 10:00 Temperature Pulse Rate 102 H Pulse Rate [ Bilateral Throughout] Respiratory 20 Rate Respiratory Rate [Bilateral Throughout] Blood Pressure 112/70 Blood Pressure [Left] O2 Sat by Pulse 97 97 Oximetry Constitutional: no acute distress, alert, other (atraumatic, normocephalic, trach to ATC) Eyes: non-icteric ENT: oropharynx moist, other (midline tracheostomy) Neck: supple, no lymphadenopathy, no JVD Effort: normal Ascultation: Bilateral: diminished breath sounds, wheezes, rhonchi (scant) Percussion: Bilateral: not dull Cardiovascular: regular rate and rhythm, other (S1,S2) Gastrointestinal: normoactive bowel sounds, soft, non-tender, non-distended (protuberant), other (PEG) Integumentary: normal Extremities: no cyanosis, pulses normal, no ischemia or petechiae, edema Neurologic: normal mental status, non-focal exam, pupils equal and round, CN II- XII normal, motor strength normal and, other (moves all extremities) Psychiatric: mood appropriate, affect normal CBC and BMP: 08/06/21 05:04 08/07/21 10:49 ABG, PT/INR, D-dimer: ABG ABG pH 7.449 pH Units (7.350-7.450) 07/29/21 20:45 ABG pCO2 51.3 mm Hg 07/29/21 20:45 ABG pO2 85.8 mm Hg (80.0-90.0) 07/29/21 20:45 ABG O2 Saturation 97.0 % (95.0-99.0) 07/29/21 20:45 Abnormal lab findings: Abnormal Labs 07/25/21 07/25/21 07/25/21 11:19 21:50 Unknown WBC 18.1 H Hgb Hct MCV MCH RDW 16.2 H Lymph % (Auto) [place] % (Auto) Seg Neuts % (Manual) Lymphocytes % (Manual) Monocytes % (Manual) Seg Neutrophils # Man 12.1 H Lymphocytes # (Manual) ABG pH 6.917 L* ABG pO2 331.8 H ABG HCO3 39.3 H ABG O2 Saturation 99.4 H ABG Base Excess ABG Hemoglobin 12.1 L Oxyhemoglobin Sodium Potassium Chloride Carbon Dioxide BUN Creatinine Glucose POC Glucose Lactic Acid C-Reactive Protein Albumin Wjurm-0-Uascrzzfq PEP Interpretation Urine WBC (Auto) 26.0 H Urine Creatinine Urine Total Protein 07/25/21 07/25/21 07/25/21 Unknown Unknown Unknown WBC Hgb Hct MCV MCH RDW Lymph % (Auto) [place] % (Auto) Seg Neuts % (Manual) Lymphocytes % (Manual) Monocytes % (Manual) Seg Neutrophils # Man Lymphocytes # (Manual) ABG pH 7.029 L* ABG pO2 97.5 H ABG HCO3 37.2 H ABG O2 Saturation 93.5 L ABG Base Excess ABG Hemoglobin 12.7 L Oxyhemoglobin 91.7 L Sodium 129 L Potassium Chloride 90.1 L Carbon Dioxide BUN 8 L Creatinine Glucose 258 H POC Glucose Lactic Acid 4.90 H* C-Reactive Protein Albumin 3.8 L Jywcp-2-Gpyxfehmx PEP Interpretation Urine WBC (Auto) Urine Creatinine Urine Total Protein 07/25/21 07/26/21 07/26/21 Unknown 00:10 03:50 WBC 15.5 H Hgb Hct MCV MCH RDW 15.4 H Lymph % (Auto) [place] % (Auto) Seg Neuts % (Manual) 96.0 H Lymphocytes % (Manual) 3.0 L Monocytes % (Manual) Seg Neutrophils # Man 14.9 H Lymphocytes # (Manual) 0.5 L ABG pH 7.217 L ABG pO2 162.9 H ABG HCO3 34.3 H ABG O2 Saturation ABG Base Excess 4.0 H ABG Hemoglobin 12.5 L Oxyhemoglobin Sodium Potassium Chloride Carbon Dioxide BUN Creatinine Glucose POC Glucose 158 H Lactic Acid C-Reactive Protein Albumin Qctgy-4-Cjwmdphkm PEP Interpretation Urine WBC (Auto) Urine Creatinine Urine Total Protein 07/26/21 07/26/21 07/26/21 03:50 04:30 07:44 WBC Hgb Hct MCV MCH RDW Lymph % (Auto) [place] % (Auto) Seg Neuts % (Manual) Lymphocytes % (Manual) Monocytes % (Manual) Seg Neutrophils # Man Lymphocytes # (Manual) ABG pH 7.170 L* ABG pO2 65.5 L ABG HCO3 33.9 H ABG O2 Saturation ABG Base Excess ABG Hemoglobin 12.0 L Oxyhemoglobin 93.5 L Sodium 132 L Potassium 6.0 H D 5.6 H Chloride 93.2 L Carbon Dioxide BUN Creatinine Glucose 171 H POC Glucose Lactic Acid C-Reactive Protein Albumin 3.7 L Vyvhd-7-Upawrwuaz PEP Interpretation Urine WBC (Auto) Urine Creatinine Urine Total Protein 07/26/21 07/26/21 07/27/21 12:34 17:18 04:54 WBC 11.9 H Hgb 11.1 L Hct 34.5 L MCV MCH 27 L RDW 15.5 H Lymph % (Auto) [place] % (Auto) Seg Neuts % (Manual) Lymphocytes % (Manual) Monocytes % (Manual) Seg Neutrophils # Man Lymphocytes # (Manual) ABG pH 7.286 L ABG pO2 100.0 H ABG HCO3 31.4 H ABG O2 Saturation ABG Base Excess 3.2 H ABG Hemoglobin 11.8 L Oxyhemoglobin Sodium Potassium Chloride Carbon Dioxide BUN Creatinine Glucose POC Glucose 111 H Lactic Acid C-Reactive Protein Albumin Zyrra-9-Cszcthetz PEP Interpretation Urine WBC (Auto) Urine Creatinine Urine Total Protein 07/27/21 07/27/21 07/27/21 04:54 10:30 15:57 WBC Hgb Hct MCV MCH RDW Lymph % (Auto) [place] % (Auto) Seg Neuts % (Manual) Lymphocytes % (Manual) Monocytes % (Manual) Seg Neutrophils # Man Lymphocytes # (Manual) ABG pH ABG pO2 76.9 L ABG HCO3 30.2 H ABG O2 Saturation ABG Base Excess 3.9 H ABG Hemoglobin 11.2 L Oxyhemoglobin Sodium 136 L Potassium Chloride Carbon Dioxide BUN 37 H Creatinine 2.2 H D Glucose POC Glucose Lactic Acid C-Reactive Protein 2.40 H Albumin Bwdjz-3-Cnpbprfem PEP Interpretation Urine WBC (Auto) Urine Creatinine Urine Total Protein 07/27/21 07/27/21 07/27/21 17:45 17:45 17:52 WBC Hgb Hct MCV MCH RDW Lymph % (Auto) [place] % (Auto) Seg Neuts % (Manual) Lymphocytes % (Manual) Monocytes % (Manual) Seg Neutrophils # Man Lymphocytes # (Manual) ABG pH ABG pO2 ABG HCO3 ABG O2 Saturation ABG Base Excess ABG Hemoglobin Oxyhemoglobin Sodium Potassium Chloride Carbon Dioxide BUN Creatinine Glucose POC Glucose 114 H Lactic Acid C-Reactive Protein Albumin Cssyj-9-Ecxuyqfix PEP Interpretation Urine WBC (Auto) Urine Creatinine 106.0 H 105.6 H Urine Total Protein 30 H 07/28/21 07/28/21 07/28/21 04:32 04:32 04:32 WBC Hgb 11.0 L Hct 34.4 L MCV MCH 27 L RDW 16.0 H Lymph % (Auto) [place] % (Auto) Seg Neuts % (Manual) Lymphocytes % (Manual) Monocytes % (Manual) Seg Neutrophils # Man Lymphocytes # (Manual) ABG pH ABG pO2 ABG HCO3 ABG O2 Saturation ABG Base Excess ABG Hemoglobin Oxyhemoglobin Sodium 135 L Potassium Chloride Carbon Dioxide BUN 40 H Creatinine 2.3 H Glucose 124 H POC Glucose Lactic Acid C-Reactive Protein Albumin 3.0 L Zpnki-9-Vtgsxgfie 0.4 H PEP Interpretation see below H Urine WBC (Auto) Urine Creatinine Urine Total Protein 07/28/21 07/28/21 07/28/21 11:19 13:12 17:34 WBC Hgb Hct MCV MCH RDW Lymph % (Auto) [place] % (Auto) Seg Neuts % (Manual) Lymphocytes % (Manual) Monocytes % (Manual) Seg Neutrophils # Man Lymphocytes # (Manual) ABG pH ABG pO2 103.7 H ABG HCO3 32.7 H ABG O2 Saturation ABG Base Excess 7.1 H ABG Hemoglobin 10.8 L Oxyhemoglobin Sodium Potassium Chloride Carbon Dioxide BUN Creatinine Glucose POC Glucose 117 H 124 H Lactic Acid C-Reactive Protein Albumin Aygzc-9-Jzdsmrggw PEP Interpretation Urine WBC (Auto) Urine Creatinine Urine Total Protein 07/28/21 07/29/21 07/29/21 23:54 05:09 05:39 WBC Hgb Hct MCV MCH RDW Lymph % (Auto) [place] % (Auto) Seg Neuts % (Manual) Lymphocytes % (Manual) Monocytes % (Manual) Seg Neutrophils # Man Lymphocytes # (Manual) ABG pH ABG pO2 ABG HCO3 ABG O2 Saturation ABG Base Excess ABG Hemoglobin Oxyhemoglobin Sodium Potassium Chloride Carbon Dioxide 32 H BUN 34 H Creatinine 2.1 H Glucose 124 H POC Glucose 107 H 120 H Lactic Acid C-Reactive Protein Albumin Yzrcw-8-Fgukjykbj PEP Interpretation Urine WBC (Auto) Urine Creatinine Urine Total Protein 07/29/21 07/29/21 07/29/21 09:00 20:45 23:15 WBC Hgb Hct MCV MCH RDW Lymph % (Auto) [place] % (Auto) Seg Neuts % (Manual) Lymphocytes % (Manual) Monocytes % (Manual) Seg Neutrophils # Man Lymphocytes # (Manual) ABG pH ABG pO2 131.5 H ABG HCO3 35.1 H 34.7 H ABG O2 Saturation ABG Base Excess 9.1 H 9.3 H ABG Hemoglobin 11.8 L 11.7 L Oxyhemoglobin Sodium Potassium Chloride Carbon Dioxide BUN Creatinine Glucose POC Glucose 114 H Lactic Acid C-Reactive Protein Albumin Qtbdu-0-Fsmigbzau PEP Interpretation Urine WBC (Auto) Urine Creatinine Urine Total Protein 07/30/21 07/30/21 07/30/21 04:19 04:19 05:25 WBC Hgb 10.9 L Hct 32.6 L MCV 83 L MCH RDW 16.2 H Lymph % (Auto) [place] % (Auto) Seg Neuts % (Manual) Lymphocytes % (Manual) Monocytes % (Manual) Seg Neutrophils # Man Lymphocytes # (Manual) ABG pH ABG pO2 ABG HCO3 ABG O2 Saturation ABG Base Excess ABG Hemoglobin Oxyhemoglobin Sodium Potassium Chloride Carbon Dioxide 33 H BUN 32 H Creatinine 2.2 H Glucose 108 H POC Glucose 109 H Lactic Acid C-Reactive Protein Albumin Govsl-8-Ikuljitcb PEP Interpretation Urine WBC (Auto) Urine Creatinine Urine Total Protein 07/31/21 07/31/21 07/31/21 04:26 05:35 23:23 WBC Hgb Hct MCV MCH RDW Lymph % (Auto) [place] % (Auto) Seg Neuts % (Manual) Lymphocytes % (Manual) Monocytes % (Manual) Seg Neutrophils # Man Lymphocytes # (Manual) ABG pH ABG pO2 ABG HCO3 ABG O2 Saturation ABG Base Excess ABG Hemoglobin Oxyhemoglobin Sodium Potassium Chloride Carbon Dioxide 32 H BUN 30 H Creatinine 2.1 H Glucose 108 H POC Glucose 124 H 116 H Lactic Acid C-Reactive Protein Albumin Kdvms-2-Qllzhrzui PEP Interpretation Urine WBC (Auto) Urine Creatinine Urine Total Protein 08/01/21 08/01/21 08/01/21 05:42 11:49 16:42 WBC Hgb Hct MCV MCH RDW Lymph % (Auto) [place] % (Auto) Seg Neuts % (Manual) Lymphocytes % (Manual) Monocytes % (Manual) Seg Neutrophils # Man Lymphocytes # (Manual) ABG pH ABG pO2 ABG HCO3 ABG O2 Saturation ABG Base Excess ABG Hemoglobin Oxyhemoglobin Sodium Potassium Chloride Carbon Dioxide 33 H BUN 29 H Creatinine 2.0 H Glucose 106 H POC Glucose 111 H 65 L Lactic Acid C-Reactive Protein Albumin Vxfsw-3-Npoabyjni PEP Interpretation Urine WBC (Auto) Urine Creatinine Urine Total Protein 08/03/21 08/03/21 08/04/21 00:07 12:26 05:15 WBC Hgb 11.3 L Hct 34.2 L MCV MCH RDW 17.2 H Lymph % (Auto) [place] % (Auto) Seg Neuts % (Manual) Lymphocytes % (Manual) Monocytes % (Manual) 10.0 H Seg Neutrophils # Man Lymphocytes # (Manual) ABG pH ABG pO2 ABG HCO3 ABG O2 Saturation ABG Base Excess ABG Hemoglobin Oxyhemoglobin Sodium Potassium Chloride Carbon Dioxide BUN Creatinine Glucose POC Glucose 111 H 115 H Lactic Acid C-Reactive Protein Albumin Iavso-9-Xiybcjllr PEP Interpretation Urine WBC (Auto) Urine Creatinine Urine Total Protein 08/04/21 08/04/21 08/05/21 05:15 07:31 11:29 WBC Hgb Hct MCV MCH RDW Lymph % (Auto) [place] % (Auto) Seg Neuts % (Manual) Lymphocytes % (Manual) Monocytes % (Manual) Seg Neutrophils # Man Lymphocytes # (Manual) ABG pH ABG pO2 ABG HCO3 ABG O2 Saturation ABG Base Excess ABG Hemoglobin Oxyhemoglobin Sodium Potassium Chloride Carbon Dioxide BUN 29 H Creatinine 1.9 H Glucose 104 H POC Glucose 109 H 131 H Lactic Acid C-Reactive Protein Albumin Ihahe-1-Loquqsfro PEP Interpretation Urine WBC (Auto) Urine Creatinine Urine Total Protein 08/06/21 08/06/21 08/06/21 05:04 05:04 05:45 WBC Hgb 11.6 L Hct MCV MCH 27 L RDW 17.0 H Lymph % (Auto) 41.3 H [place] % (Auto) 13.9 H Seg Neuts % (Manual) Lymphocytes % (Manual) Monocytes % (Manual) Seg Neutrophils # Man Lymphocytes # (Manual) ABG pH ABG pO2 ABG HCO3 ABG O2 Saturation ABG Base Excess ABG Hemoglobin Oxyhemoglobin Sodium Potassium Chloride Carbon Dioxide BUN 22 H Creatinine 1.5 H Glucose POC Glucose 106 H Lactic Acid C-Reactive Protein Albumin Zlxns-7-Lakhzkssf PEP Interpretation Urine WBC (Auto) Urine Creatinine Urine Total Protein 08/06/21 11:36 WBC Hgb Hct MCV MCH RDW Lymph % (Auto) [place] % (Auto) Seg Neuts % (Manual) Lymphocytes % (Manual) Monocytes % (Manual) Seg Neutrophils # Man Lymphocytes # (Manual) ABG pH ABG pO2 ABG HCO3 ABG O2 Saturation ABG Base Excess ABG Hemoglobin Oxyhemoglobin Sodium Potassium Chloride Carbon Dioxide BUN Creatinine Glucose POC Glucose 109 H Lactic Acid C-Reactive Protein Albumin Azwoa-5-Emagmvqka PEP Interpretation Urine WBC (Auto) Urine Creatinine Urine Total Protein Allied health notes reviewed: RT
[2021-08-07 12:34] LABS: Calcium 9.6 mg/dL (8.4-10.2)
[2021-08-07] MEDS: ACETAMINOPHEN 325 MG TAB PO PRN (21:30)
[2021-08-07] MEDS: SENNOSIDES/DOCUSATE SODIUM 8.6/50 MG TAB PO SCH (21:31)
[2021-08-08] MEDS: INSULIN REGULAR, HUMAN 100 UNITS/1 ML SUB-Q SCH ×4 (00:54→18:03)
[2021-08-08] MEDS: hydrALAZINE 25 MG TAB PO SCH ×3 (05:35→21:29)
[2021-08-08] MEDS: IPRATROPIUM/ALBUTEROL SULFATE 3 ML AMPUL.NEB IH SCH ×3 (09:21→21:00)
[2021-08-08 09:42] LABS: Basophils % (Auto) 0.5 % (0.0-1.8); Eosinophils # (Auto) 0.2 K/mm3 (0.0-0.4); Eosinophils % (Auto) 2.6 % (0.0-4.3); Hematocrit 35.1 % (35.5-45.6); Hemoglobin 11.8 gm/dl (11.8-15.2); Lymphocytes # (Auto) 2.2 K/mm3 (1.2-5.4); Lymphocytes % (Auto) 34.9 % (13.4-35.0); Mean Corpuscular HGB Conc 34 % (32-34); Mean Corpuscular Volume 84 fl (84-94); Monocytes # (Auto) 0.7 K/mm3 (0.0-0.8); Monocytes % (Auto) 11.8 % (0.0-7.3); Platelet Count 282 K/mm3 (140-440); Red Blood Count 4.19 M/mm3 (3.65-5.03); Red Cell Distribution Width 17.3 % (13.2-15.2)
[2021-08-08 09:53] LABS: Calcium 9.7 mg/dL (8.4-10.2)
[2021-08-08] MEDS: amLODIPine 5 MG TAB FEEDTUBE SCH (10:01)
[2021-08-08] MEDS: ACETAMINOPHEN 325 MG TAB PO PRN (10:01)
[2021-08-08] MEDS: HEPARIN 5,000 UNIT/1 ML VIAL SUB-Q SCH ×2 (10:02→21:29)
[2021-08-08] MEDS: FAMOTIDINE 10 MG TAB FEEDTUBE SCH ×2 (10:02→21:28)
--- NOTE | 2021-08-08 12:55 | Progress Note ---
Assessment and Plan Assessment and plan: Assessment and plan: This is a 61-year-old male who is a resident of a [facility] facility with chronic hypoxic respiratory failure s/p trach with vent dependency, recent C OVID-19 infection, ischemic cardiomyopathy, type 2 diabetes mellitus, obesity who presented to the emergency department on 07/25 via EMS with chief complaints of respiratory distress from his alf. In the emergency department patient was placed on the ventilator as he was tachypneic, dyspneic and did not improve after suctioning. Work-up in the emergency department revealed lactic acidosis, leukocytosis and CXR revealed possible retrocardiac pneumonia and started on antibiotics for HAP. Patient was admitted to the hospitalist service with consults to [facility] with acute on chronic respiratory failure and HAP. Hospital course to date: 07/26: Stopped Solu-Medrol, given For hyperkalemia, started on tube feedings. Remains on fentanyl and Mucomyst 07/27: Renal indices increased, patient did receive Lasix x1 yesterday. Nephrology was consulted. Urine lites and bilateral renal ultrasound pending. Infectious disease consulted. Bladder scan performed and Good catheter placed. COVID 19 PCR negative 07/28: No acute events reported overnight, worsening renal function-nephrology is on the case. Continue with cefepime per ID. Vent changes per [facility]. 07/29: Slight improvement to renal function tests, remains on assist control. No acute events reported overnight. 07/30: Patient has been on T-piece all night. Renal function continues slightly worse however patient is still creating urine. Possible transfer to floor or imcu. Per pt he is requesting transfer to another alf if needed on discharge. 07/31: IMCU currently. Resting comfortably. no complaints. ST/PT eval. Working with CM for placement back to LTAC. ID okay with discontinuing antibiotics. Discussed patient case with pulmonology as well Dr. Azul 08/01: Patient still requiring 8 L of O2 via T-piece. Case management working for possible placement at LTAC. ID discontinue antibiotics. Continue PMV trials as tolerated. 08/02/2021 Patient still requiring high flow oxygen 08/03/2021. Patient still requiring 8 L of O2 via T-piece. Continue PMV trials as tolerated. 08/04/2021. Patient still requiring large amounts of oxygen. Patient currently with 10 L O2 FiO2 40%. Continue to wean O2 as tolerated. Recheck chest x-ray 08/05/2021. Patient still requiring large amounts of oxygen. Patient currently with 10 L O2 FiO2 40%. Continue to wean O2 as tolerated. Chest x-ray remains negative. Patient appears to have chronic kidney disease with renal function remaining stable at this time, hemoglobin 11.2 creatinine is currently 1.9, slight improvement, felt to be in stage IIIb chronic kidney disease for now needs ongoing monitoring and follow-up 08/06/2021. Patient with T-piece requiring 8 L of O2. Creatinine is stable at 1.5. Nephrology reports patient likely has stage IIIb chronic kidney disease for now needs ongoing monitoring and follow-up 08/07/2021. Patient with T-piece 8 L O2 with FiO2 of 35%. I discussed the case with pulmonary who would like to get CT of neck to assess the anatomy. PMV trials per pulmonary. Patient also with nonoliguric acute kidney injury. Hep B/C negative, ANCA neg, C3/C4 wnl, PUMA neg, dsDNA neg. Urine eos negative; UPCR 280mg. Nephrology following. 08/08/2021: Awaiting completion of CT neck. dispo home with [facility]/D[facility] vs [facility]. Will likely need outpatient ENT to decannulate BLENDER CONVEYOR OPERATOR for PMV trials. Assessment and plan: This is a 61 year old male from a SNF with chronic hypoxic resp failure s/p trach, recent COVID 19 infection, ischemic cardiomyopathy IDDM, obesity admitted with acute on chronic resp failure, HAP, hyperkalemia, and lactic acidosis. Neuro: NAD -p.o. oxycodone prn -Reorientation as needed -Maintain sleep-wake cycle -CT head continued mild microvascular angiopathy without clear CT evidence of acute intercranial hemorrhage Cardiac: h/o HTN -Cardiology consulted, appreciate recommendations -Blood pressure monitoring per protocol -03/09/21 Echocardiogram LVEF 60-65% -Amlodipine, Labetalol, hydralazine PO (titrate as tolerated) -Avoid ACEi or ARB in setting of MONIK Respiratory: Acute on chronic hypercapnic respiratory failure, s/p trach -CCM consulted, appreciate recommendations -T piece 35 % Fio2 -See RT notes for titration -Pulm hygiene -SPO2 monitoring GI: MO, moderate protein calorie malnutrition -24 hours + 398 mL -PPI -NTR consulted for tube feedings -s/p PEG tube in place -BR: Senvon S : Acute kidney injury (improving), h/o urinary retention -Nephrology consulted, appreciate recommendations -Renal ultrasound shows echogenic kidneys which can be seen with medical renal disease, no hydronephrosis -FeNa indicate prerenal -Monitor intake and output -Renally dose medications -Avoid nephrotoxic medications -Good catheter placed for urinary retention -Trend BMP ID: HAP (POA) -Infectious disease consulted, appreciate recommendations -COVID PCR (-) -MRSA PCR positive -07/25 BC x2 NGTD, UC NGTD -Antibiotic therapy with cefepime -f/u blood culture -Monitor WBC and temperature curve Endo: h/o DM -Avoid hypoglycemia -SSI -Accu-Cheks q. 6 Heme: Leukocytosis -Heparin subq -Trend CBC -Transfuse hemoglobin less than 7 -Monitor for signs of bleeding -SCDs to BLE while in bed History Interval history: No acute complaints. Resting comfortably. Hospitalist Physical - Physical exam Narrative exam: Physical Exam: VITAL SIGNS: Reviewed. GENERAL: The patient appears normally developed, Vital signs as documented. Pleasant gentleman. Elevated BMI HEAD: No signs of head trauma. EYES: Pupils are equal. Extraocular motions intact. EARS: Hearing grossly intact. MOUTH: Oropharynx is normal. NECK: T-piece, trach. No adenopathy, no JVD. CHEST: Chest with clear breath sounds bilaterally. No wheezes, rales, or rhonchi. CARDIAC: Regular rate and rhythm. S1 and S2, without murmurs, gallops, or rubs. VASCULAR: No Edema. Peripheral pulses normal and equal in all extremities. ABDOMEN: PEG tube. Soft, non tender and non distended. No rebound or guarding, and no masses palpated. Bowel Sounds normal. MUSCULOSKELETAL: Good range of motion of all major joints. Extremities without clubbing, cyanosis or edema. NEUROLOGIC EXAM: Alert and oriented x 4. no focal sensory or strength deficits. PSYCHIATRIC: Mood normal. SKIN: detail exam as documented in skin assessment - Constitutional Vitals: Temp Pulse Resp BP Pulse Ox 98.0 F 97 H 18 154/89 97 08/08/21 04:33 08/08/21 12:00 08/08/21 12:00 08/08/21 12:00 08/08/21 12:00 General appearance: Present: no acute distress, well-nourished HEART Score - HEART Score Troponin: Troponin T < 0.010 ng/mL (0.00-0.029) 07/25/21 Unknown Results - Labs CBC & Chem 7: 08/08/21 09:18 08/08/21 09:18 Labs: Laboratory Last Values WBC 6.3 K/mm3 (4.5-11.0) 08/08/21 09:18 RBC 4.19 M/mm3 (3.65-5.03) 08/08/21 09:18 Hgb 11.8 gm/dl (11.8-15.2) 08/08/21 09:18 Hct 35.1 % (35.5-45.6) L 08/08/21 09:18 MCV 84 fl (84-94) 08/08/21 09:18 MCH 28 pg (28-32) 08/08/21 09:18 MCHC 34 % (32-34) 08/08/21 09:18 RDW 17.3 % (13.2-15.2) H 08/08/21 09:18 Plt Count 282 K/mm3 (140-440) 08/08/21 09:18 Lymph % (Auto) 34.9 % (13.4-35.0) 08/08/21 09:18 [place] % (Auto) 11.8 % (0.0-7.3) H 08/08/21 09:18 Eos % (Auto) 2.6 % (0.0-4.3) 08/08/21 09:18 Baso % (Auto) 0.5 % (0.0-1.8) 08/08/21 09:18 Lymph # (Auto) 2.2 K/mm3 (1.2-5.4) 08/08/21 09:18 [place] # (Auto) 0.7 K/mm3 (0.0-0.8) 08/08/21 09:18 Eos # (Auto) 0.2 K/mm3 (0.0-0.4) 08/08/21 09:18 Baso # (Auto) 0.0 K/mm3 (0.0-0.1) 08/08/21 09:18 Add Manual Diff Complete 08/04/21 05:15 Total Counted 100 08/04/21 05:15 Seg Neutrophils % 50.2 % (40.0-70.0) 08/08/21 09:18 Seg Neuts % (Manual) 52.0 % (40.0-70.0) 08/04/21 05:15 Band Neutrophils % 0 % 08/04/21 05:15 Lymphocytes % (Manual) 35.0 % (13.4-35.0) 08/04/21 05:15 Reactive Lymphs % (Man) 0 % 08/04/21 05:15 Monocytes % (Manual) 10.0 % (0.0-7.3) H 08/04/21 05:15 Eosinophils % (Manual) 3.0 % (0.0-4.3) 08/04/21 05:15 Basophils % (Manual) 0 % (0.0-1.8) 08/04/21 05:15 Metamyelocytes % 0 % 08/04/21 05:15 Myelocytes % 0 % 08/04/21 05:15 Promyelocytes % 0 % 08/04/21 05:15 Blast Cells % 0 % 08/04/21 05:15 Nucleated RBC % Not Reportable 08/04/21 05:15 Seg Neutrophils # 3.2 K/mm3 (1.8-7.7) 08/08/21 09:18 Seg Neutrophils # Man 3.2 K/mm3 (1.8-7.7) 08/04/21 05:15 Band Neutrophils # 0.0 K/mm3 08/04/21 05:15 Lymphocytes # (Manual) 2.1 K/mm3 (1.2-5.4) 08/04/21 05:15 Abs React Lymphs (Man) 0.0 K/mm3 08/04/21 05:15 Monocytes # (Manual) 0.6 K/mm3 (0.0-0.8) 08/04/21 05:15 Eosinophils # (Manual) 0.2 K/mm3 (0.0-0.4) 08/04/21 05:15 Basophils # (Manual) 0.0 K/mm3 (0.0-0.1) 08/04/21 05:15 Metamyelocytes # 0.0 K/mm3 08/04/21 05:15 Myelocytes # 0.0 K/mm3 08/04/21 05:15 Promyelocytes # 0.0 K/mm3 08/04/21 05:15 Blast Cells # 0.0 K/mm3 08/04/21 05:15 WBC Morphology Not Reportable 08/04/21 05:15 Hypersegmented Neuts Not Reportable 08/04/21 05:15 Hyposegmented Neuts Not Reportable 08/04/21 05:15 Hypogranular Neuts Not Reportable 08/04/21 05:15 Smudge Cells Not Reportable 08/04/21 05:15 Toxic Granulation Not Reportable 08/04/21 05:15 Toxic Vacuolation Not Reportable 08/04/21 05:15 Dohle Bodies Not Reportable 08/04/21 05:15 Pelger-Huet Anomaly Not Reportable 08/04/21 05:15 Mely Rods Not Reportable 08/04/21 05:15 Platelet Estimate Consistent w auto 08/04/21 05:15 Clumped Platelets Not Reportable 08/04/21 05:15 Plt Clumps, EDTA Not Reportable 08/04/21 05:15 Large Platelets Not Reportable 08/04/21 05:15 Giant Platelets Not Reportable 08/04/21 05:15 Platelet Satelliting Not Reportable 08/04/21 05:15 Plt Morphology Comment Not Reportable 08/04/21 05:15 RBC Morphology Normal 08/04/21 05:15 Dimorphic RBCs Not Reportable 08/04/21 05:15 Polychromasia Not Reportable 08/04/21 05:15 Hypochromasia Few 08/04/21 05:15 Poikilocytosis Not Reportable 08/04/21 05:15 Anisocytosis Not Reportable 08/04/21 05:15 Microcytosis Not Reportable 08/04/21 05:15 Macrocytosis Not Reportable 08/04/21 05:15 Spherocytes Not Reportable 08/04/21 05:15 Pappenheimer Bodies Not Reportable 08/04/21 05:15 Sickle Cells Not Reportable 08/04/21 05:15 Target Cells Not Reportable 08/04/21 05:15 Tear Drop Cells Not Reportable 08/04/21 05:15 Ovalocytes Not Reportable 08/04/21 05:15 Helmet Cells Not Reportable 08/04/21 05:15 [place] Bodies Not Reportable 08/04/21 05:15 [place] Rings Not Reportable 08/04/21 05:15 Shama Cells Not Reportable 08/04/21 05:15 Bite Cells Not Reportable 08/04/21 05:15 Crenated Cell Not Reportable 08/04/21 05:15 Elliptocytes Not Reportable 08/04/21 05:15 Acanthocytes (Spur) Not Reportable 08/04/21 05:15 Rouleaux Not Reportable 08/04/21 05:15 Hemoglobin C Crystals Not Reportable 08/04/21 05:15 Schistocytes Not Reportable 08/04/21 05:15 Malaria parasites Not Reportable 08/04/21 05:15 Shaheen Bodies Not Reportable 08/04/21 05:15 Hem Pathologist Commnt No 08/04/21 05:15 ABG pH 7.449 pH Units (7.350-7.450) 07/29/21 20:45 ABG pCO2 51.3 mm Hg 07/29/21 20:45 ABG pO2 85.8 mm Hg (80.0-90.0) 07/29/21 20:45 ABG HCO3 34.7 mmol/L (20.0-26.0) H 07/29/21 20:45 ABG O2 Saturation 97.0 % (95.0-99.0) 07/29/21 20:45 ABG O2 Content 15.7 (0.0-44) 07/29/21 20:45 ABG Base Excess 9.3 mmol/L (-2.0-3.0) H 07/29/21 20:45 ABG Hemoglobin 11.7 gm/dl (14.0-18.0) L 07/29/21 20:45 ABG Carboxyhemoglobin 1.2 % (0.0-5.0) 07/29/21 20:45 ABG Methemoglobin 0.6 % (0.0-1.5) 07/29/21 20:45 Oxyhemoglobin 95.2 % (95.0-99.0) 07/29/21 20:45 FiO2 35 % 07/29/21 20:45 Sodium 144 mmol/L (137-145) 08/08/21 09:18 Potassium 4.2 mmol/L (3.6-5.0) 08/08/21 09:18 Chloride 105.0 mmol/L (98-107) 08/08/21 09:18 Carbon Dioxide 30 mmol/L (22-30) 08/08/21 09:18 Anion Gap 13 mmol/L 08/08/21 09:18 BUN 22 mg/dL (9-20) H 08/08/21 09:18 Creatinine 1.5 mg/dL (0.8-1.3) H 08/08/21 09:18 Estimated GFR 47 ml/min 08/08/21 09:18 BUN/Creatinine Ratio 15 % 08/08/21 09:18 Glucose 123 mg/dL (75-100) H 08/08/21 09:18 POC Glucose 91 mg/dL (70-105) 08/08/21 11:08 Hemoglobin A1c 5.9 % (4-6) 07/26/21 03:50 Lactic Acid 4.90 mmol/L (0.7-2.0) H* 07/25/21 Unknown Calcium 9.7 mg/dL (8.4-10.2) 08/08/21 09:18 Total Bilirubin 0.20 mg/dL (0.1-1.2) 07/26/21 03:50 AST 19 units/L (5-40) 07/26/21 03:50 ALT 11 units/L (7-56) 07/26/21 03:50 Alkaline Phosphatase 73 units/L (35-129) 07/26/21 03:50 Troponin T < 0.010 ng/mL (0.00-0.029) 07/25/21 Unknown C-Reactive Protein 2.40 mg/dL (0.00-1.30) H 07/27/21 15:57 Serum Total Protein 6.4 g/dL (6.1-8.1) 07/28/21 04:32 Total Protein 8.2 g/dL (6.3-8.2) 07/26/21 03:50 Albumin 3.0 g/dL (3.8-4.8) L 07/28/21 04:32 Albumin/Globulin Ratio 0.8 % 07/26/21 03:50 Cqhao-2-Idgdnubzw 0.4 g/dL (0.2-0.3) H 07/28/21 04:32 Smdgn-3-Ocpzqibac 0.7 g/dL (0.5-0.9) 07/28/21 04:32 Beta Globulins 0.4 g/dL (0.2-0.5) 07/28/21 04:32 Gamma Globulins 1.5 g/dL (0.8-1.7) 07/28/21 04:32 Abnorm Protein Band 1 see below 07/28/21 04:32 PEP Interpretation see below H 07/28/21 04:32 Procalcitonin 0.77 ng/mL (<0.15) 07/27/21 15:57 Urine Color Yellow (Yellow) 07/25/21 11:19 Urine Turbidity Cloudy (Clear) 07/25/21 11:19 Urine pH 6.0 (5.0-7.0) 07/25/21 11:19 Ur Specific [place] 1.015 (1.003-1.030) 07/25/21 11:19 Urine Protein >500 mg/dL (Negative) 07/25/21 11:19 Urine Glucose (UA) 150 mg/dL (Negative) 07/25/21 11:19 Urine Ketones Neg mg/dL (Negative) 07/25/21 11:19 Urine Blood Neg (Negative) 07/25/21 11:19 Urine Nitrite Neg (Negative) 07/25/21 11:19 Urine Bilirubin Neg (Negative) 07/25/21 11:19 Urine Urobilinogen < 2.0 mg/dL (<2.0) 07/25/21 11:19 Ur Leukocyte Esterase Neg (Negative) 07/25/21 11:19 Urine WBC (Auto) 26.0 /HPF (0.0-6.0) H 07/25/21 11:19 Urine RBC (Auto) 53.0 /HPF (0.0-6.0) 07/25/21 11:19 U Epithel Cells (Auto) 7.0 /HPF (0-13.0) 07/25/21 11:19 Urine Bacteria (Auto) 4+ /HPF (Negative) 07/25/21 11:19 Hyaline Casts 21 /LPF 07/25/21 11:19 Urine Mucus Few /HPF 07/25/21 11:19 Urine Yeast (Budding) 2+ /HPF 07/25/21 11:19 Urine Sperm 3+ /HPF (THERAPEUTIC RADIOLOGIST) 07/25/21 11:19 Urine Eosinophils None seen (None Seen) 07/27/21 17:45 Urine Creatinine 105.6 mg/dL (0.1-20.0) H 07/27/21 17:45 Urine Creatinine 106.0 mg/dL (0.1-20.0) H 07/27/21 17:45 Protein/Creatinin Ratio 0.28 07/27/21 17:45 Urine Sodium 46 mmol/L 07/27/21 17:45 Urine Total Protein 30 mg/dL (5-11.8) H 07/27/21 17:45 Nasal Screen MRSA (PCR) Positive (Negative) 07/26/21 16:30 PUMA Screen Negative (Negative) 07/27/21 18:17 Proteinase 3 (PR3) Ab <1.0 AI (<1.0) 07/27/21 18:17 Myeloperoxidase Ab <1.0 AI (<1.0) 07/27/21 18:17 Double Strand DNA Ab 1 IU/mL (<=4) 07/27/21 18:17 Complement C3 149 mg/dL (82-185) 07/27/21 18:17 Complement C4 48 mg/dL (15-53) 07/27/21 18:17 Coronavirus (PCR) Negative (Negative) 07/27/21 09:00 SARS-CoV-2 (PCR) Negative (Negative) 07/31/21 13:05 Hepatitis A IgM Ab Non-reactive (NonReactive) 07/27/21 18:17 Hep Bs Antigen Non-reactive (Negative) 07/27/21 18:17 Hep B Core IgM Ab Non-reactive (NonReactive) 07/27/21 18:17 Hepatitis C Antibody Non-reactive (NonReactive) 07/27/21 18:17 Good/IV: Voiding Method Urinal Active Medications - Current Medications Current Medications: Generic Name Dose Route Start Last Admin Trade Name Freq PRN Reason Stop Dose Admin Acetaminophen 650 mg 07/25/21 16:00 08/08/21 10:01 Acetaminophen 325 Mg Tab PO 650 mg Q4H PRN Administration Pain MILD(1-3)/Fever >100.5/RAYO Albuterol/Ipratropium 1 ampul 08/03/21 14:00 08/08/21 09:21 Ipratropium/Albuterol Sulfate 3 Ml Ampul.Neb IH 1 ampul TIDRT BLANCA Administration Amlodipine Besylate 10 mg 07/28/21 10:00 08/08/21 10:01 Amlodipine 5 Mg Tab FEEDTUBE 10 mg QDAY BLANCA Administration Lipase/Protease/Amylase 1 each 07/26/21 14:56 Lipase 10,500/Protease 25,000/Amylase 43,750 (Units) Dr Juan Manuel FEEDTUBE PRN PRN For Clogged Feeding Tube Dextrose 50 ml 07/26/21 12:22 Dextrose 50% In Water (25gm) 50 Ml Syringe IV Q30MIN PRN Hypoglycemia Protocol Famotidine 10 mg 07/27/21 10:00 08/08/21 10:02 Famotidine 10 Mg Tab FEEDTUBE 10 mg BID BLANCA Administration Heparin Sodium (Porcine) 5,000 unit 07/25/21 16:00 08/08/21 10:02 Heparin 5,000 Unit/1 Ml Vial SUB-Q 5,000 unit Q12HR BLANCA Administration Hydralazine HCl 25 mg 07/30/21 14:00 08/08/21 05:35 Hydralazine 25 Mg Tab PO 25 mg Q8HR BLANCA Administration Hydralazine HCl 15 mg 07/30/21 07:44 Hydralazine 20 Mg/1 Ml Inj IV Q6H PRN Blood Pressure Insulin Human Regular 0 units 07/26/21 12:00 08/08/21 12:00 Insulin Regular, Human 100 Units/1 Ml SUB-Q Not Given Q6HR BLANCA Protocol Labetalol HCl 100 mg 07/28/21 10:00 08/08/21 10:02 Labetalol 100 Mg Tab FEEDTUBE 100 mg BID BLANCA Administration Ondansetron HCl 4 mg 07/25/21 16:00 Ondansetron 4 Mg/2 Ml Inj IV Q8H PRN Nausea And Vomiting Oxycodone/Acetaminophen 1 tab 07/27/21 12:27 08/05/21 05:53 Oxycodone /Acetaminophen 5-325mg Tab PO 1 tab Q6H PRN Administration Pain, Moderate (4-6) Polyethylene Glycol 17 gm 07/26/21 17:04 Polyethylene Glycol 3350 17 Gm Powder PO QDAY PRN Constipation Senna/Docusate Sodium 1 tab 07/26/21 22:00 08/07/21 21:31 Sennosides/Docusate Sodium 8.6/50 Mg Tab PO 1 tab QHS BLANCA Administration Simple Syrup 15 ml 07/26/21 14:56 Simple Syrup 15 Ml FEEDTUBE PRN PRN Hypoglycemia Simple Syrup 30 ml 07/26/21 14:56 Simple Syrup 15 Ml FEEDTUBE PRN PRN Hypoglycemia Sodium Bicarbonate 325 mg 07/26/21 14:56 Sodium Bicarbonate 325 Mg Tab FEEDTUBE PRN PRN For Clogged Feeding Tube Sodium Chloride 10 ml 07/25/21 22:00 08/08/21 10:02 Sodium Chloride 0.9% 10 Ml Flush Syringe IV 10 ml BID BLANCA Administration Sodium Chloride 10 ml 07/25/21 16:00 07/26/21 00:08 Sodium Chloride 0.9% 10 Ml Flush Syringe IV 10 ml PRN PRN Administration LINE FLUSH Nutrition/Malnutrition Assess - Dietary Evaluation Nutrition/Malnutrition Findings: Nutrition Notes Start: 07/26/21 14:26 Freq: Status: Active Protocol: Document 08/07/21 16:17 BRYANNA (Rec: 08/07/21 16:20 BRYANNA [id number]) Nutrition Notes Initial or Follow up Reassessment Current Diagnosis Acute Kidney Injury,Diabetes, Hypertension,Respiratory Failure Other Pertinent Diagnosis HCAP, CHF, Ischemic Cardiomyopathy. Current Diet Regular Diet (since L 08/01). Labs/Tests 08/07: BUN 23, Crea 1.5. Pertinent Medications 08/07: Nutritionally unremarkable. Height 6 ft Weight 110 kg [place] Body Weight (kg) 80.90 BMI 32.8 Weight change and time frame No body weight change reported in 1 week. Weight Status Obese Subjective/Other Information RD consult for routine F/U on dietary advancement assessment . TF discontinued, diet advanced to PO, Pt's PO intake of meals has been Good (100%), according to ADL notes. BLENDER CONVEYOR OPERATOR note on 07/31/21 12:03: Swallowing function has been assessed. Blue food coloring was impregnated in the food. Patient was suctioned with each consistency. No evidence of blue was noted via trach site. However, recommendations are to hold po for 24 hours to determine presence of blue. If none, recommend a regular diet. Informed the patient's nurse. Pt is on Trach Collar+, O2 saturation @ 97%, according to Physical Assessment History notes. Percent of energy/protein needs met: Prescribed Regular Diet provides for energy/protein needs (2,289 Kcal/89 g) during LOS. Burn Absent Trauma Absent GI Symptoms None Food Allergy No Skin Integrity/Comment R-Heel wound. Current % PO Good (75-100%) Minimum of two criteria No #1 Nutrition Diagnosis Swallowing difficulty Comments: TF discontinued, diet advanced to PO, Pt's PO intake of meals has been Good (100%), according to ADL notes. BLENDER CONVEYOR OPERATOR note on 07/31/21 12:03: Swallowing function has been assessed. Blue food coloring was impregnated in the food. Patient was suctioned with each consistency. No evidence of blue was noted via trach site. However, recommendations are to hold po for 24 hours to determine presence of blue. If none, recommend a regular diet. Informed the patient's nurse. Diagnosis Progress(for reassessment Resolved documentation) Is patient on ventilator? No Is Patient Ambulatory and/or Out of Bed No REE-([facility]-confined to bed) 2324.328 Kcal/Kg value to use for calculation 20 Approximate Energy Requirements Using 2200 kcal/Kg Calculation Used for Recommendations [facility] Additional Notes Protein: 0.8-1 g/Kg AdjBW; 76- 95 g/day. Fluids: 1 ml/Kcal, or as per MD. Nutrition Intervention Change Diet Order: Continue Regular Diet. Nutrition Support: Discontinued. Goal #1 Adjust the dietary intervention to better serve Pt's needs and clinical conditions during LOS. Follow-Up By: 08/14/21 Additional Comments Continue monitoring food tolerance, %PO intake of meals , and BM.
--- NOTE | 2021-08-08 16:37 | Progress Note ---
Assessment and Plan Acute and chronic Respiratory Failure with Hypoxia and Hypercapnia 2/2 HCAP and CHF exacerbation s/p MVS Tracheostomy status Oropharyngeal dysphagia s/p PEG h/o Ischemic cardiomyopathy HCAP AE-CHF exacerbation CT neck done, awaiitng official read Discussed [facility] primary service- if there is any tracheal stenosis or malacia will need ENT evaluation prior to discussions on decannulation [employer]ER for PMV trials- yet to be initiated Continue PT/OT, increase activity -Trach care, airway clearance, secretion management -Titrate supplemental oxygen to keep SpO2 89-90% -Bronchodilators -Modified diet with aspiration precautions - continue contact isolation re: MRSA - continue bronchodilators with pulmonary hygiene per RT - continue accuchecks with glycemic control per SSI for target blood glucose of < 180 mg/dL; avoid hypoglycemia - avoid nephrotoxins, renally dose all medications - continue to avoid benzodiazepines, reduce the possibility of delirium - prn analgesia per pain score - Maintenance of sleep-wake cycle, avoid delirium - VTE prophylaxis - continue other care per attending / other consultants - discharge planning ongoing concurrently Subjective Date of service: 08/08/21 Principal diagnosis: Ac and ch hypoxemic and hypercapnic Resp Failure; HCAP; AE- CHF; s/p Trach Interval history: Patient is seen today for: Acute and chronic hypoxemic and hypercapnic Respiratory Failure; HCAP; AE-CHF; s/p Tracheostomy; H/O Ischemic cardiomyopathy Seen and examined at bedside; 24hour events reviewed; nursing and respiratory care staff consulted; no adverse overnight events reported to me; resting peacefully in bed;talking around trach; trach to ATP; tolerating a modified diet. Had CT neck today-waiting official read Objective Vital Signs - 12hr 08/08/21 08/08/21 08/08/21 05:35 09:22 09:30 Pulse Rate 88 Pulse Rate [ 102 H Bilateral Throughout] Respiratory Rate Respiratory 20 Rate [Bilateral Throughout] Blood Pressure 171/88 Blood Pressure [Left] O2 Sat by Pulse 97 Oximetry O2 Sat by Pulse 97 Oximetry [ Assessment] 08/08/21 08/08/21 08/08/21 10:01 12:00 15:00 Pulse Rate 100 H 97 H Pulse Rate [ 90 Bilateral Throughout] Respiratory 18 Rate Respiratory 20 Rate [Bilateral Throughout] Blood Pressure 170/80 Blood Pressure 154/89 [Left] O2 Sat by Pulse 97 Oximetry O2 Sat by Pulse Oximetry [ Assessment] 08/08/21 15:30 Pulse Rate Pulse Rate [ Bilateral Throughout] Respiratory Rate Respiratory Rate [Bilateral Throughout] Blood Pressure Blood Pressure [Left] O2 Sat by Pulse Oximetry O2 Sat by Pulse 98 Oximetry [ Assessment] Constitutional: no acute distress, alert, other (atraumatic, normocephalic, trach to ATC) Eyes: non-icteric ENT: oropharynx moist, other (midline tracheostomy) Neck: supple, no lymphadenopathy, no JVD Effort: normal Ascultation: Bilateral: diminished breath sounds, wheezes, rhonchi (scant) Percussion: Bilateral: not dull Cardiovascular: regular rate and rhythm, other (S1,S2) Gastrointestinal: normoactive bowel sounds, soft, non-tender, non-distended (pro tuberant), other (PEG) Integumentary: normal Extremities: no cyanosis, pulses normal, no ischemia or petechiae, edema Neurologic: normal mental status, non-focal exam, pupils equal and round, CN II- XII normal, motor strength normal and, other (moves all extremities) Psychiatric: mood appropriate, affect normal CBC and BMP: 08/08/21 09:18 08/08/21 09:18 ABG, PT/INR, D-dimer: ABG ABG pH 7.449 pH Units (7.350-7.450) 07/29/21 20:45 ABG pCO2 51.3 mm Hg 07/29/21 20:45 ABG pO2 85.8 mm Hg (80.0-90.0) 07/29/21 20:45 ABG O2 Saturation 97.0 % (95.0-99.0) 07/29/21 20:45 Abnormal lab findings: Abnormal Labs 07/25/21 07/25/21 07/25/21 11:19 21:50 Unknown WBC 18.1 H Hgb Hct MCV MCH RDW 16.2 H Lymph % (Auto) [place] % (Auto) Seg Neuts % (Manual) Lymphocytes % (Manual) Monocytes % (Manual) Seg Neutrophils # Man 12.1 H Lymphocytes # (Manual) ABG pH 6.917 L* ABG pO2 331.8 H ABG HCO3 39.3 H ABG O2 Saturation 99.4 H ABG Base Excess ABG Hemoglobin 12.1 L Oxyhemoglobin Sodium Potassium Chloride Carbon Dioxide BUN Creatinine Glucose POC Glucose Lactic Acid C-Reactive Protein Albumin Efmnz-5-Hfnwhatow PEP Interpretation Urine WBC (Auto) 26.0 H Urine Creatinine Urine Total Protein 07/25/21 07/25/21 07/25/21 Unknown Unknown Unknown WBC Hgb Hct MCV MCH RDW Lymph % (Auto) [place] % (Auto) Seg Neuts % (Manual) Lymphocytes % (Manual) Monocytes % (Manual) Seg Neutrophils # Man Lymphocytes # (Manual) ABG pH 7.029 L* ABG pO2 97.5 H ABG HCO3 37.2 H ABG O2 Saturation 93.5 L ABG Base Excess ABG Hemoglobin 12.7 L Oxyhemoglobin 91.7 L Sodium 129 L Potassium Chloride 90.1 L Carbon Dioxide BUN 8 L Creatinine Glucose 258 H POC Glucose Lactic Acid 4.90 H* C-Reactive Protein Albumin 3.8 L Tyjgh-2-Adzhzeffg PEP Interpretation Urine WBC (Auto) Urine Creatinine Urine Total Protein 07/25/21 07/26/21 07/26/21 Unknown 00:10 03:50 WBC 15.5 H Hgb Hct MCV MCH RDW 15.4 H Lymph % (Auto) [place] % (Auto) Seg Neuts % (Manual) 96.0 H Lymphocytes % (Manual) 3.0 L Monocytes % (Manual) Seg Neutrophils # Man 14.9 H Lymphocytes # (Manual) 0.5 L ABG pH 7.217 L ABG pO2 162.9 H ABG HCO3 34.3 H ABG O2 Saturation ABG Base Excess 4.0 H ABG Hemoglobin 12.5 L Oxyhemoglobin Sodium Potassium Chloride Carbon Dioxide BUN Creatinine Glucose POC Glucose 158 H Lactic Acid C-Reactive Protein Albumin Bvfrk-6-Qxnigeiyp PEP Interpretation Urine WBC (Auto) Urine Creatinine Urine Total Protein 07/26/21 07/26/21 07/26/21 03:50 04:30 07:44 WBC Hgb Hct MCV MCH RDW Lymph % (Auto) [place] % (Auto) Seg Neuts % (Manual) Lymphocytes % (Manual) Monocytes % (Manual) Seg Neutrophils # Man Lymphocytes # (Manual) ABG pH 7.170 L* ABG pO2 65.5 L ABG HCO3 33.9 H ABG O2 Saturation ABG Base Excess ABG Hemoglobin 12.0 L Oxyhemoglobin 93.5 L Sodium 132 L Potassium 6.0 H D 5.6 H Chloride 93.2 L Carbon Dioxide BUN Creatinine Glucose 171 H POC Glucose Lactic Acid C-Reactive Protein Albumin 3.7 L Zqbvx-7-Bksgrvyyg PEP Interpretation Urine WBC (Auto) Urine Creatinine Urine Total Protein 07/26/21 07/26/21 07/27/21 12:34 17:18 04:54 WBC 11.9 H Hgb 11.1 L Hct 34.5 L MCV MCH 27 L RDW 15.5 H Lymph % (Auto) [place] % (Auto) Seg Neuts % (Manual) Lymphocytes % (Manual) Monocytes % (Manual) Seg Neutrophils # Man Lymphocytes # (Manual) ABG pH 7.286 L ABG pO2 100.0 H ABG HCO3 31.4 H ABG O2 Saturation ABG Base Excess 3.2 H ABG Hemoglobin 11.8 L Oxyhemoglobin Sodium Potassium Chloride Carbon Dioxide BUN Creatinine Glucose POC Glucose 111 H Lactic Acid C-Reactive Protein Albumin Vgqxu-0-Juxifiegk PEP Interpretation Urine WBC (Auto) Urine Creatinine Urine Total Protein 07/27/21 07/27/21 07/27/21 04:54 10:30 15:57 WBC Hgb Hct MCV MCH RDW Lymph % (Auto) [place] % (Auto) Seg Neuts % (Manual) Lymphocytes % (Manual) Monocytes % (Manual) Seg Neutrophils # Man Lymphocytes # (Manual) ABG pH ABG pO2 76.9 L ABG HCO3 30.2 H ABG O2 Saturation ABG Base Excess 3.9 H ABG Hemoglobin 11.2 L Oxyhemoglobin Sodium 136 L Potassium Chloride Carbon Dioxide BUN 37 H Creatinine 2.2 H D Glucose POC Glucose Lactic Acid C-Reactive Protein 2.40 H Albumin Hokse-7-Lxrjfbnrw PEP Interpretation Urine WBC (Auto) Urine Creatinine Urine Total Protein 07/27/21 07/27/21 07/27/21 17:45 17:45 17:52 WBC Hgb Hct MCV MCH RDW Lymph % (Auto) [place] % (Auto) Seg Neuts % (Manual) Lymphocytes % (Manual) Monocytes % (Manual) Seg Neutrophils # Man Lymphocytes # (Manual) ABG pH ABG pO2 ABG HCO3 ABG O2 Saturation ABG Base Excess ABG Hemoglobin Oxyhemoglobin Sodium Potassium Chloride Carbon Dioxide BUN Creatinine Glucose POC Glucose 114 H Lactic Acid C-Reactive Protein Albumin Ichjt-5-Phuzbimfg PEP Interpretation Urine WBC (Auto) Urine Creatinine 106.0 H 105.6 H Urine Total Protein 30 H 07/28/21 07/28/21 07/28/21 04:32 04:32 04:32 WBC Hgb 11.0 L Hct 34.4 L MCV MCH 27 L RDW 16.0 H Lymph % (Auto) [place] % (Auto) Seg Neuts % (Manual) Lymphocytes % (Manual) Monocytes % (Manual) Seg Neutrophils # Man Lymphocytes # (Manual) ABG pH ABG pO2 ABG HCO3 ABG O2 Saturation ABG Base Excess ABG Hemoglobin Oxyhemoglobin Sodium 135 L Potassium Chloride Carbon Dioxide BUN 40 H Creatinine 2.3 H Glucose 124 H POC Glucose Lactic Acid C-Reactive Protein Albumin 3.0 L Sfxki-3-Jligjdgmk 0.4 H PEP Interpretation see below H Urine WBC (Auto) Urine Creatinine Urine Total Protein 07/28/21 07/28/21 07/28/21 11:19 13:12 17:34 WBC Hgb Hct MCV MCH RDW Lymph % (Auto) [place] % (Auto) Seg Neuts % (Manual) Lymphocytes % (Manual) Monocytes % (Manual) Seg Neutrophils # Man Lymphocytes # (Manual) ABG pH ABG pO2 103.7 H ABG HCO3 32.7 H ABG O2 Saturation ABG Base Excess 7.1 H ABG Hemoglobin 10.8 L Oxyhemoglobin Sodium Potassium Chloride Carbon Dioxide BUN Creatinine Glucose POC Glucose 117 H 124 H Lactic Acid C-Reactive Protein Albumin Sdgpg-1-Hlldpxuzn PEP Interpretation Urine WBC (Auto) Urine Creatinine Urine Total Protein 07/28/21 07/29/21 07/29/21 23:54 05:09 05:39 WBC Hgb Hct MCV MCH RDW Lymph % (Auto) [place] % (Auto) Seg Neuts % (Manual) Lymphocytes % (Manual) Monocytes % (Manual) Seg Neutrophils # Man Lymphocytes # (Manual) ABG pH ABG pO2 ABG HCO3 ABG O2 Saturation ABG Base Excess ABG Hemoglobin Oxyhemoglobin Sodium Potassium Chloride Carbon Dioxide 32 H BUN 34 H Creatinine 2.1 H Glucose 124 H POC Glucose 107 H 120 H Lactic Acid C-Reactive Protein Albumin Abisy-9-Leuuzegnr PEP Interpretation Urine WBC (Auto) Urine Creatinine Urine Total Protein 07/29/21 07/29/21 07/29/21 09:00 20:45 23:15 WBC Hgb Hct MCV MCH RDW Lymph % (Auto) [place] % (Auto) Seg Neuts % (Manual) Lymphocytes % (Manual) Monocytes % (Manual) Seg Neutrophils # Man Lymphocytes # (Manual) ABG pH ABG pO2 131.5 H ABG HCO3 35.1 H 34.7 H ABG O2 Saturation ABG Base Excess 9.1 H 9.3 H ABG Hemoglobin 11.8 L 11.7 L Oxyhemoglobin Sodium Potassium Chloride Carbon Dioxide BUN Creatinine Glucose POC Glucose 114 H Lactic Acid C-Reactive Protein Albumin Llvpt-3-Owrmtwfdy PEP Interpretation Urine WBC (Auto) Urine Creatinine Urine Total Protein 07/30/21 07/30/21 07/30/21 04:19 04:19 05:25 WBC Hgb 10.9 L Hct 32.6 L MCV 83 L MCH RDW 16.2 H Lymph % (Auto) [place] % (Auto) Seg Neuts % (Manual) Lymphocytes % (Manual) Monocytes % (Manual) Seg Neutrophils # Man Lymphocytes # (Manual) ABG pH ABG pO2 ABG HCO3 ABG O2 Saturation ABG Base Excess ABG Hemoglobin Oxyhemoglobin Sodium Potassium Chloride Carbon Dioxide 33 H BUN 32 H Creatinine 2.2 H Glucose 108 H POC Glucose 109 H Lactic Acid C-Reactive Protein Albumin Mrztc-7-Hvgxognre PEP Interpretation Urine WBC (Auto) Urine Creatinine Urine Total Protein 07/31/21 07/31/21 07/31/21 04:26 05:35 23:23 WBC Hgb Hct MCV MCH RDW Lymph % (Auto) [place] % (Auto) Seg Neuts % (Manual) Lymphocytes % (Manual) Monocytes % (Manual) Seg Neutrophils # Man Lymphocytes # (Manual) ABG pH ABG pO2 ABG HCO3 ABG O2 Saturation ABG Base Excess ABG Hemoglobin Oxyhemoglobin Sodium Potassium Chloride Carbon Dioxide 32 H BUN 30 H Creatinine 2.1 H Glucose 108 H POC Glucose 124 H 116 H Lactic Acid C-Reactive Protein Albumin Fmozc-9-Naksfcmfj PEP Interpretation Urine WBC (Auto) Urine Creatinine Urine Total Protein 08/01/21 08/01/21 08/01/21 05:42 11:49 16:42 WBC Hgb Hct MCV MCH RDW Lymph % (Auto) [place] % (Auto) Seg Neuts % (Manual) Lymphocytes % (Manual) Monocytes % (Manual) Seg Neutrophils # Man Lymphocytes # (Manual) ABG pH ABG pO2 ABG HCO3 ABG O2 Saturation ABG Base Excess ABG Hemoglobin Oxyhemoglobin Sodium Potassium Chloride Carbon Dioxide 33 H BUN 29 H Creatinine 2.0 H Glucose 106 H POC Glucose 111 H 65 L Lactic Acid C-Reactive Protein Albumin Tsrqc-7-Lovczugzv PEP Interpretation Urine WBC (Auto) Urine Creatinine Urine Total Protein 08/03/21 08/03/21 08/04/21 00:07 12:26 05:15 WBC Hgb 11.3 L Hct 34.2 L MCV MCH RDW 17.2 H Lymph % (Auto) [place] % (Auto) Seg Neuts % (Manual) Lymphocytes % (Manual) Monocytes % (Manual) 10.0 H Seg Neutrophils # Man Lymphocytes # (Manual) ABG pH ABG pO2 ABG HCO3 ABG O2 Saturation ABG Base Excess ABG Hemoglobin Oxyhemoglobin Sodium Potassium Chloride Carbon Dioxide BUN Creatinine Glucose POC Glucose 111 H 115 H Lactic Acid C-Reactive Protein Albumin Uxpks-2-Mgdnlfqvn PEP Interpretation Urine WBC (Auto) Urine Creatinine Urine Total Protein 08/04/21 08/04/21 08/05/21 05:15 07:31 11:29 WBC Hgb Hct MCV MCH RDW Lymph % (Auto) [place] % (Auto) Seg Neuts % (Manual) Lymphocytes % (Manual) Monocytes % (Manual) Seg Neutrophils # Man Lymphocytes # (Manual) ABG pH ABG pO2 ABG HCO3 ABG O2 Saturation ABG Base Excess ABG Hemoglobin Oxyhemoglobin Sodium Potassium Chloride Carbon Dioxide BUN 29 H Creatinine 1.9 H Glucose 104 H POC Glucose 109 H 131 H Lactic Acid C-Reactive Protein Albumin Qpxso-0-Ozgnufmws PEP Interpretation Urine WBC (Auto) Urine Creatinine Urine Total Protein 08/06/21 08/06/21 08/06/21 05:04 05:04 05:45 WBC Hgb 11.6 L Hct MCV MCH 27 L RDW 17.0 H Lymph % (Auto) 41.3 H [place] % (Auto) 13.9 H Seg Neuts % (Manual) Lymphocytes % (Manual) Monocytes % (Manual) Seg Neutrophils # Man Lymphocytes # (Manual) ABG pH ABG pO2 ABG HCO3 ABG O2 Saturation ABG Base Excess ABG Hemoglobin Oxyhemoglobin Sodium Potassium Chloride Carbon Dioxide BUN 22 H Creatinine 1.5 H Glucose POC Glucose 106 H Lactic Acid C-Reactive Protein Albumin Rmijm-9-Ygsyqfvtc PEP Interpretation Urine WBC (Auto) Urine Creatinine Urine Total Protein 08/06/21 08/07/21 08/07/21 11:36 10:49 21:31 WBC Hgb Hct MCV MCH RDW Lymph % (Auto) [place] % (Auto) Seg Neuts % (Manual) Lymphocytes % (Manual) Monocytes % (Manual) Seg Neutrophils # Man Lymphocytes # (Manual) ABG pH ABG pO2 ABG HCO3 ABG O2 Saturation ABG Base Excess ABG Hemoglobin Oxyhemoglobin Sodium Potassium Chloride Carbon Dioxide BUN 23 H Creatinine 1.5 H Glucose POC Glucose 109 H 112 H Lactic Acid C-Reactive Protein Albumin Wayvy-9-Xecmynswh PEP Interpretation Urine WBC (Auto) Urine Creatinine Urine Total Protein 08/08/21 08/08/21 08/08/21 05:44 09:18 09:18 WBC Hgb Hct 35.1 L MCV MCH RDW 17.3 H Lymph % (Auto) [place] % (Auto) 11.8 H Seg Neuts % (Manual) Lymphocytes % (Manual) Monocytes % (Manual) Seg Neutrophils # Man Lymphocytes # (Manual) ABG pH ABG pO2 ABG HCO3 ABG O2 Saturation ABG Base Excess ABG Hemoglobin Oxyhemoglobin Sodium Potassium Chloride Carbon Dioxide BUN 22 H Creatinine 1.5 H Glucose 123 H POC Glucose 130 H Lactic Acid C-Reactive Protein Albumin Fgbxs-4-Dwcuunwyv PEP Interpretation Urine WBC (Auto) Urine Creatinine Urine Total Protein Allied health notes reviewed: RT
--- NOTE | 2021-08-08 18:08 | Cat Scan Report ---
CT neck wo con INDICATION / CLINICAL INFORMATION: 61 years Male; Tracheal stenosis. TECHNIQUE: Contiguous thin cut axial images obtained through the neck. Sagittal and coronal reconstructions perf ormed by the technologist. All CT scans at this location are performed using CT dose reduction for AL YAHAIRA by means of automated exposure control. Motion artifact present. COMPARISON: None available. FINDINGS: Tracheostomy tube does not appear to enter the main tracheal airway. There is significant s oft tissue between the inferior margin of the tracheostomy tube tip and the adjacent tracheal airway. Furthermore, posterior to the inferior margin of the tracheostomy tube, there is significant soft tis manasa which narrows the trachea to approximately 12 mm in a para AP dimension by 6 mm in a para transve rse dimension. However, this is near the expected location of the cricopharyngeus muscle, which most likely contributes to the narrowing. This finding begins in the region of the subglottic larynx and i s most prevalent at approximately 4.5 cm inferior to the vocal cords. MUCOSAL SPACE: Otherwise, the nasopharynx, oropharynx and vallecula, oral cavity and floor of mouth, hypopharynx, and larynx are grossly normal. LYMPH NODES: Minimally prominent nodes are seen in the level 5 regions bilaterally, as well as the perea perior mediastinum. SALIVARY GLANDS: Parotid, submandibular, and visualized sublingual glands are within normal limits. T here is no evidence of sialolith. THYROID GLAND: Unremarkable. PARANASAL SINUSES: Minimal mucosal thickening in the ethmoids, as well as the inferior mastoids bilat erally. Small air-fluid levels noted in the inferior mastoids as well, right greater than left. No co alescence of air cells seen. SPINE: Mild degenerative changes seen at C5-6. No significant canal stenosis or foraminal narrowing a ppreciated. VASCULAR STRUCTURES: Vascular structures are grossly normal in appearance. ADDITIONAL FINDINGS: Hazy increased interstitial markings are scattered throughout the upper lungs. IMPRESSION: 1. Mild position of the tracheostomy tube suggested, as described above. Abnormal soft tissue seen al joe the inferior aspect of the tracheostomy tube as described above. 2. 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 Signer Name: Remigio Winn MD, III Signed: 08/08/2021 6:03 PM Workstation Name: [employer]
[2021-08-08] MEDS: SENNOSIDES/DOCUSATE SODIUM 8.6/50 MG TAB PO SCH (21:28)
[2021-08-09] MEDS: INSULIN REGULAR, HUMAN 100 UNITS/1 ML SUB-Q SCH ×4 (00:13→18:57)
[2021-08-09] MEDS: hydrALAZINE 25 MG TAB PO SCH ×3 (05:53→22:22)
[2021-08-09] MEDS: ACETAMINOPHEN 325 MG TAB PO PRN ×2 (05:53→15:56)
--- NOTE | 2021-08-09 07:42 | Discharge Summary ---
Providers - Providers Date of Admission: 07/25/21 16:33 Date of discharge: 08/09/21 Attending physician: RAFAEL DOMINGUEZ MD 07/25/21 11:46 Consult to Physician [CONS] Stat Comment: Dr. Xiao saw the patient/ graciela Consulting Provider: JAMAAL ADDISON Physician Instructions: Reason For Exam: pt on ventilator; recs for sedation 07/26/21 11:47 Consult to Dietitian/Nutrition [CONS] Routine Physician Instructions: Reason For Exam: Reason for Consult: Write/Manage Tube Feeding 07/26/21 11:49 Consult to Dietitian/Nutrition [CONS] Routine Physician Instructions: Reason For Exam: Reason for Consult: Write/Manage Tube Feeding 07/27/21 14:44 Consult to Physician [CONS] Routine Comment: called office left message/ jaky Consulting Provider: VEE ADAMS Physician Instructions: Reason For Exam: Pneumonia; Respiratory failure ? MRSA 07/27/21 14:46 Consult to Physician [CONS] Routine Comment: Consulting Provider: NATA CHASE Physician Instructions: called office spoke to medical office receptionist / jaky Reason For Exam: MONIK 07/30/21 14:23 Speech Therapy Evaluation and Treat [CONS] Routine Reason For Exam: swallow eval 07/31/21 08:39 Occupational Therapy Evaluate and Treat [CONS] Routine Comment: Reason For Exam: trach / peg, rehab Physical Therapy Evaluation and Treat [CONS] Routine Comment: Reason For Exam: trach / peg, rehab 07/31/21 17:51 Speech Therapy Eval for Passy-Snehal Valve [CONS] Routine Reason For Exam: PMV trials as tolerated please 08/06/21 13:21 Speech Therapy Eval for Passy-Snehal Valve [CONS] Routine Reason For Exam: trach for possible decannulation 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 In the emergency department patient was placed on the ventilator as he was tachypneic, dyspneic and did not improve after suctioning. Work-up in the emergency department revealed lactic acidosis, leukocytosis and CXR revealed possible retrocardiac pneumonia and started on antibiotics for HAP. Patient was admitted to the hospitalist service with consults to [facility] with acute on chronic respiratory failure and HAP. Hospital course to date: 07/26: Stopped Solu-Medrol, given For hyperkalemia, started on tube feedings. Remains on fentanyl and Mucomyst 07/27: Renal indices increased, patient did receive Lasix x1 yesterday. Nephrology was consulted. Urine lites and bilateral renal ultrasound pending. Infectious disease consulted. Bladder scan performed and Good catheter placed. COVID 19 PCR negative 07/28: No acute events reported overnight, worsening renal function-nephrology is on the case. Continue with cefepime per ID. Vent changes per [facility]. 07/29: Slight improvement to renal function tests, remains on assist control. No acute events reported overnight. 07/30: Patient has been on T-piece all night. Renal function continues slightly worse however patient is still creating urine. Possible transfer to floor or imcu. Per pt he is requesting transfer to another [place] [facility] if needed on discharge. 07/31: IMCU currently. Resting comfortably. no complaints. ST/PT eval. Working with CM for placement back to LTAC. ID okay with discontinuing antibiotics. Discussed patient case with pulmonology as well Dr. Azul 08/01: Patient still requiring 8 L of O2 via T-piece. Case management working for possible placement at LTAC. ID discontinue antibiotics. Continue PMV trials as tolerated. 08/02/2021 Patient still requiring high flow oxygen 08/03/2021. Patient still requiring 8 L of O2 via T-piece. Continue PMV trials as tolerated. 08/04/2021. Patient still requiring large amounts of oxygen. Patient currently with 10 L O2 FiO2 40%. Continue to wean O2 as tolerated. Recheck chest x-ray 08/05/2021. Patient still requiring large amounts of oxygen. Patient currently with 10 L O2 FiO2 40%. Continue to wean O2 as tolerated. Chest x-ray remains negative. Patient appears to have chronic kidney disease with renal function remaining stable at this time, hemoglobin 11.2 creatinine is currently 1.9, slight improvement, felt to be in stage IIIb chronic kidney disease for now needs ongoing monitoring and follow-up 08/06/2021. Patient with T-piece requiring 8 L of O2. Creatinine is stable at 1.5. Nephrology reports patient likely has stage IIIb chronic kidney disease for now needs ongoing monitoring and follow-up 08/07/2021. Patient with T-piece 8 L O2 with FiO2 of 35%. I discussed the case with pulmonary who would like to get CT of neck to assess the anatomy. PMV trials per pulmonary. Patient also with nonoliguric acute kidney injury. Hep B/C negative, ANCA neg, C3/C4 wnl, PUMA neg, dsDNA neg. Urine eos negative; UPCR 280mg. Nephrology following. 08/08/2021: Awaiting completion of CT neck. dispo home with hhc/DME vs back to [facility]. Will likely need outpatient ENT to decannulate [employer]IATE for PMV trials. 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 Will need ENT OP for decannulation of trach. Discharge back to [facility] facility with [facility] for trach. Advised to follow up with primary and ENT when possible. Assessment and plan: This is a 61 year old male from a SNF with chronic hypoxic resp failure s/p trach, recent COVID 19 infection, ischemic cardiomyopathy IDDM, obesity admitted with acute on chronic resp failure, HAP, hyperkalemia, and lactic acidosis. Neuro: NAD -p.o. oxycodone prn -Reorientation as needed -Maintain sleep-wake cycle -CT head continued mild microvascular angiopathy without clear CT evidence of acute intercranial hemorrhage Cardiac: h/o HTN -Cardiology consulted, appreciate recommendations -Blood pressure monitoring per protocol -03/09/21 Echocardiogram LVEF 60-65% -Amlodipine, Labetalol, hydralazine PO (titrate as tolerated) -Avoid ACEi or ARB in setting of MONIK Respiratory: Acute on chronic hypercapnic respiratory failure, s/p trach -CCM consulted, appreciate recommendations -T piece 35 % Fio2 -See RT notes for titration -Pulm hygiene -SPO2 monitoring GI: MO, moderate protein calorie malnutrition -24 hours + 398 mL -PPI -NTR consulted for tube feedings -s/p PEG tube in place -BR: Jonas Paez : Acute kidney injury (improving), h/o urinary retention -Nephrology consulted, appreciate recommendations -Renal ultrasound shows echogenic kidneys which can be seen with medical renal disease, no hydronephrosis -FeNa indicate prerenal -Monitor intake and output -Renally dose medications -Avoid nephrotoxic medications -Good catheter placed for urinary retention -Trend BMP ID: HAP (POA) -Infectious disease consulted, appreciate recommendations -COVID PCR (-) -MRSA PCR positive -07/25 BC x2 NGTD, UC NGTD -Antibiotic therapy with cefepime -f/u blood culture -Monitor WBC and temperature curve Endo: h/o DM -Avoid hypoglycemia -SSI -Accu-Cheks q. 6 Heme: Leukocytosis -Heparin subq -Trend CBC -Transfuse hemoglobin less than 7 -Monitor for signs of bleeding -SCDs to BLE while in bed Disposition: [facility] Final Discharge Diagnosis (Prints w/discharge instructions): Hospital Acquired Pneumonia Time spent for discharge: 35 Core Measure Documentation - Palliative Care Palliative Care/ Comfort Measures: Not Applicable - Core Measures Any of the following diagnoses?: none Exam - Physical Exam Narrative exam: Physical Exam: VITAL SIGNS: Reviewed. GENERAL: The patient appears normally developed, Vital signs as documented. Pleasant gentleman. Elevated BMI HEAD: No signs of head trauma. EYES: Pupils are equal. Extraocular motions intact. EARS: Hearing grossly intact. MOUTH: Oropharynx is normal. NECK: T-piece, trach. No adenopathy, no JVD. CHEST: Chest with clear breath sounds bilaterally. No wheezes, rales, or rhonchi. CARDIAC: Regular rate and rhythm. S1 and S2, without murmurs, gallops, or rubs. VASCULAR: No Edema. Peripheral pulses normal and equal in all extremities. ABDOMEN: PEG tube. Soft, non tender and non distended. No rebound or guarding, and no masses palpated. Bowel Sounds normal. MUSCULOSKELETAL: Good range of motion of all major joints. Extremities without clubbing, cyanosis or edema. NEUROLOGIC EXAM: Alert and oriented x 4. no focal sensory or strength deficits. PSYCHIATRIC: Mood normal. SKIN: detail exam as documented in skin assessment - Constitutional Vitals: Temp Pulse Resp BP Pulse Ox 97.9 F 89 18 171/93 97 08/09/21 04:42 08/09/21 05:53 08/09/21 06:45 08/09/21 05:53 08/09/21 04:42 Plan Follow up with: PRIMARY CARE, [Primary Care Provider] - 3-5 Days
--- NOTE | 2021-08-09 08:14 | Progress Note ---
Assessment and Plan This is a 61-year-old male who is a resident of a senior care facility with chronic hypoxic respiratory failure s/p trach with vent dependency, recent COVID-19 infection, ischemic cardiomyopathy, type 2 diabetes mellitus, obesity who presented to the emergency department on 07/25 via EMS with chief complaints of respiratory distress from his retirement. In the emergency department patient was placed on the ventilator as he was tachypneic, dyspneic and did not improve after suctioning. Work-up in the emergency department revealed lactic acidosis, leukocytosis and CXR revealed possible retrocardiac pneumonia and started on antibiotics for HAP. Patient was admitted to the hospitalist service with consults to [facility] with acute on chronic respiratory failure and HAP. Patient desies smoking, alcohol or drug abuse. 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 Patient and has four children. No known drug allergies. Patient weaned from ventilator. Patient has tracheostomy.Patient transfered to medical floor. Patient presently on T tube, FIO2 35%. O2 saturation 98%. No acute respiratory distress. Patient afebrile. Has no leukocytosis. Blood pressure 165/82, Pulse 94, respirations 26. Chest xray done 08/09/21 reported Satisfactory position of endotracheal tube. Diffuse pulmonary opacities, may reflect multifocal pneumonia or edema. CAT scan of neck 08/08/21 reported Tracheostomy tube does not appear to enter the main tracheal airway. There is significant soft tissue between the inferior margin of the tracheostomy tube tip and the adjacent tracheal . 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 Recommend to change Tracheostomy tube. Patient presently on S/C Heparin, Famotidine, Albuterol/atrovent aerosol treatments, Zosyn In view of trach tube position and chest xray findings of multifocal pneumonia, recommend to transfer to ICU. I spent critical care time of 45 minutes reviewing the chart, examine the patient, review lab results, reviewing chest xray, CAT scan of neck results, talking to the nursing staff, respiratory therapy and primary care physican, in this critically ill patient. - Patient Problems (1) Acute respiratory failure Current Visit: No Status: Acute Plan to address problem: Patient is on T tube, FIO2 35% Albuterol/atrovent aerosol treatments S/C Heparin. Famotidine. (2) Coronavirus infection Current Visit: No Status: Acute Plan to address problem: Management as per infectious diseases. (3) Multifocal pneumonia Current Visit: Yes Status: Acute Plan to address problem: Patient is on Zosyn. (4) Tracheal stenosis Current Visit: Yes Status: Acute Plan to address problem: AT scan of neck 08/08/21 reported Tracheostomy tube does not appear to enter the main tracheal airway. There is significant soft tissue between the inferior margin of the tracheostomy tube tip and the adjacent tracheal . 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 Consulting surgery for trach tube placement. (5) Diabetes Current Visit: No Status: Acute Plan to address problem: Management as per primary care. (6) Hypertension Current Visit: No Status: Acute Plan to address problem: Management as per primary care. Subjective Date of service: 08/09/21 Principal diagnosis: Ac and ch hypoxemic and hypercapnic Resp Failure; HCAP; AE- CHF; s/p Trach Interval history: This is a 61-year-old male who is a resident of a senior care facility with chronic hypoxic respiratory failure s/p trach with vent dependency, recent COVID-19 infection, ischemic cardiomyopathy, type 2 diabetes mellitus, obesity who presented to the emergency department on 07/25 via EMS with chief complaints of respiratory distress from his retirement. In the emergency department patient was placed on the ventilator as he was tachypneic, dyspneic and did not improve after suctioning. Work-up in the emergency department revealed lactic acidosis, leukocytosis and CXR revealed possible retrocardiac pneumonia and started on antibiotics for HAP. Patient was admitted to the hospitalist service with consults to [facility] with acute on chronic respiratory failure and HAP. Patient desies smoking, alcohol or drug abuse. 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 Patient and has four children. No known drug allergies. Patient weaned from ventilator. Patient has tracheostomy.Patient transfered to medical floor. Patient presently on T tube, FIO2 35%. O2 saturation 98%. No acute respiratory distress. Patient afebrile. Has no leukocytosis. Blood pressure 165/82, Pulse 94, respirations 26. Chest xray done 08/09/21 reported Satisfactory position of endotracheal tube. Diffuse pulmonary opacities, may reflect multifocal pneumonia or edema. CAT scan of neck 08/08/21 reported Tracheostomy tube does not appear to enter the main tracheal airway. There is significant soft tissue between the inferior margin of the tracheostomy tube tip and the adjacent tracheal . 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 Recommend to change Tracheostomy tube. Patient presently on S/C Heparin, Famotidine, Albuterol/atrovent aerosol treatments, Zosyn 6 Objective Vital Signs - 12hr 08/08/21 08/08/21 08/08/21 21:13 21:14 21:28 Temperature 98.7 F Pulse Rate 96 H 96 H Pulse Rate [ 96 H Bilateral Throughout] Respiratory 18 Rate Respiratory 18 Rate [Bilateral Throughout] Blood Pressure 172/90 172/90 O2 Sat by Pulse 98 98 Oximetry 08/08/21 08/08/21 08/09/21 21:29 22:00 04:42 Temperature 97.9 F Pulse Rate 96 H 89 Pulse Rate [ Bilateral Throughout] Respiratory 20 Rate Respiratory Rate [Bilateral Throughout] Blood Pressure 172/90 171/93 O2 Sat by Pulse 95 97 Oximetry 08/09/21 08/09/21 05:53 06:45 Temperature Pulse Rate 89 Pulse Rate [ Bilateral Throughout] Respiratory 21 18 Rate Respiratory Rate [Bilateral Throughout] Blood Pressure 171/93 O2 Sat by Pulse Oximetry Constitutional: no acute distress, alert, other (atraumatic, normocephalic, trach to ATC) Eyes: non-icteric ENT: oropharynx moist, other (midline tracheostomy) Neck: supple, no lymphadenopathy, no JVD Effort: normal Ascultation: Bilateral: diminished breath sounds, wheezes, rhonchi (scant) Percussion: Bilateral: not dull Cardiovascular: regular rate and rhythm, other (S1,S2) Gastrointestinal: normoactive bowel sounds, soft, non-tender, non-distended (protuberant), other (PEG) Integumentary: normal Extremities: no cyanosis, pulses normal, no ischemia or petechiae, edema Neurologic: normal mental status, non-focal exam, pupils equal and round, CN II- XII normal, other (moves all extremities) Psychiatric: mood appropriate, affect normal CBC and BMP: 08/08/21 09:18 08/08/21 09:18 ABG, PT/INR, D-dimer: ABG ABG pH 7.449 pH Units (7.350-7.450) 07/29/21 20:45 ABG pCO2 51.3 mm Hg 07/29/21 20:45 ABG pO2 85.8 mm Hg (80.0-90.0) 07/29/21 20:45 ABG O2 Saturation 97.0 % (95.0-99.0) 07/29/21 20:45 Abnormal lab findings: Abnormal Labs 07/25/21 07/25/21 07/25/21 11:19 21:50 Unknown WBC 18.1 H Hgb Hct MCV MCH RDW 16.2 H Lymph % (Auto) Cameron % (Auto) Seg Neuts % (Manual) Lymphocytes % (Manual) Monocytes % (Manual) Seg Neutrophils # Man 12.1 H Lymphocytes # (Manual) ABG pH 6.917 L* ABG pO2 331.8 H ABG HCO3 39.3 H ABG O2 Saturation 99.4 H ABG Base Excess ABG Hemoglobin 12.1 L Oxyhemoglobin Sodium Potassium Chloride Carbon Dioxide BUN Creatinine Glucose POC Glucose Lactic Acid C-Reactive Protein Albumin Qmxyw-4-Qdqvxupba PEP Interpretation Urine WBC (Auto) 26.0 H Urine Creatinine Urine Total Protein 07/25/21 07/25/21 07/25/21 Unknown Unknown Unknown WBC Hgb Hct MCV MCH RDW Lymph % (Auto) Cameron % (Auto) Seg Neuts % (Manual) Lymphocytes % (Manual) Monocytes % (Manual) Seg Neutrophils # Man Lymphocytes # (Manual) ABG pH 7.029 L* ABG pO2 97.5 H ABG HCO3 37.2 H ABG O2 Saturation 93.5 L ABG Base Excess ABG Hemoglobin 12.7 L Oxyhemoglobin 91.7 L Sodium 129 L Potassium Chloride 90.1 L Carbon Dioxide BUN 8 L Creatinine Glucose 258 H POC Glucose Lactic Acid 4.90 H* C-Reactive Protein Albumin 3.8 L Sxpsl-4-Mtnatuuzo PEP Interpretation Urine WBC (Auto) Urine Creatinine Urine Total Protein 07/25/21 07/26/21 07/26/21 Unknown 00:10 03:50 WBC 15.5 H Hgb Hct MCV MCH RDW 15.4 H Lymph % (Auto) Cameron % (Auto) Seg Neuts % (Manual) 96.0 H Lymphocytes % (Manual) 3.0 L Monocytes % (Manual) Seg Neutrophils # Man 14.9 H Lymphocytes # (Manual) 0.5 L ABG pH 7.217 L ABG pO2 162.9 H ABG HCO3 34.3 H ABG O2 Saturation ABG Base Excess 4.0 H ABG Hemoglobin 12.5 L Oxyhemoglobin Sodium Potassium Chloride Carbon Dioxide BUN Creatinine Glucose POC Glucose 158 H Lactic Acid C-Reactive Protein Albumin Hborf-7-Ymhdunvrx PEP Interpretation Urine WBC (Auto) Urine Creatinine Urine Total Protein 07/26/21 07/26/21 07/26/21 03:50 04:30 07:44 WBC Hgb Hct MCV MCH RDW Lymph % (Auto) Cameron % (Auto) Seg Neuts % (Manual) Lymphocytes % (Manual) Monocytes % (Manual) Seg Neutrophils # Man Lymphocytes # (Manual) ABG pH 7.170 L* ABG pO2 65.5 L ABG HCO3 33.9 H ABG O2 Saturation ABG Base Excess ABG Hemoglobin 12.0 L Oxyhemoglobin 93.5 L Sodium 132 L Potassium 6.0 H D 5.6 H Chloride 93.2 L Carbon Dioxide BUN Creatinine Glucose 171 H POC Glucose Lactic Acid C-Reactive Protein Albumin 3.7 L Fpyrg-7-Tyfwafooq PEP Interpretation Urine WBC (Auto) Urine Creatinine Urine Total Protein 07/26/21 07/26/21 07/27/21 12:34 17:18 04:54 WBC 11.9 H Hgb 11.1 L Hct 34.5 L MCV MCH 27 L RDW 15.5 H Lymph % (Auto) Cameron % (Auto) Seg Neuts % (Manual) Lymphocytes % (Manual) Monocytes % (Manual) Seg Neutrophils # Man Lymphocytes # (Manual) ABG pH 7.286 L ABG pO2 100.0 H ABG HCO3 31.4 H ABG O2 Saturation ABG Base Excess 3.2 H ABG Hemoglobin 11.8 L Oxyhemoglobin Sodium Potassium Chloride Carbon Dioxide BUN Creatinine Glucose POC Glucose 111 H Lactic Acid C-Reactive Protein Albumin Ptszw-0-Ghgljdgka PEP Interpretation Urine WBC (Auto) Urine Creatinine Urine Total Protein 07/27/21 07/27/21 07/27/21 04:54 10:30 15:57 WBC Hgb Hct MCV MCH RDW Lymph % (Auto) Cameron % (Auto) Seg Neuts % (Manual) Lymphocytes % (Manual) Monocytes % (Manual) Seg Neutrophils # Man Lymphocytes # (Manual) ABG pH ABG pO2 76.9 L ABG HCO3 30.2 H ABG O2 Saturation ABG Base Excess 3.9 H ABG Hemoglobin 11.2 L Oxyhemoglobin Sodium 136 L Potassium Chloride Carbon Dioxide BUN 37 H Creatinine 2.2 H D Glucose POC Glucose Lactic Acid C-Reactive Protein 2.40 H Albumin Ocmhu-4-Kjtrcrunp PEP Interpretation Urine WBC (Auto) Urine Creatinine Urine Total Protein 07/27/21 07/27/21 07/27/21 17:45 17:45 17:52 WBC Hgb Hct MCV MCH RDW Lymph % (Auto) Cameron % (Auto) Seg Neuts % (Manual) Lymphocytes % (Manual) Monocytes % (Manual) Seg Neutrophils # Man Lymphocytes # (Manual) ABG pH ABG pO2 ABG HCO3 ABG O2 Saturation ABG Base Excess ABG Hemoglobin Oxyhemoglobin Sodium Potassium Chloride Carbon Dioxide BUN Creatinine Glucose POC Glucose 114 H Lactic Acid C-Reactive Protein Albumin Pfoak-8-Pzkrdnydr PEP Interpretation Urine WBC (Auto) Urine Creatinine 106.0 H 105.6 H Urine Total Protein 30 H 07/28/21 07/28/21 07/28/21 04:32 04:32 04:32 WBC Hgb 11.0 L Hct 34.4 L MCV MCH 27 L RDW 16.0 H Lymph % (Auto) Cameron % (Auto) Seg Neuts % (Manual) Lymphocytes % (Manual) Monocytes % (Manual) Seg Neutrophils # Man Lymphocytes # (Manual) ABG pH ABG pO2 ABG HCO3 ABG O2 Saturation ABG Base Excess ABG Hemoglobin Oxyhemoglobin Sodium 135 L Potassium Chloride Carbon Dioxide BUN 40 H Creatinine 2.3 H Glucose 124 H POC Glucose Lactic Acid C-Reactive Protein Albumin 3.0 L Dobeq-1-Fpbqfofvv 0.4 H PEP Interpretation see below H Urine WBC (Auto) Urine Creatinine Urine Total Protein 07/28/21 07/28/21 07/28/21 11:19 13:12 17:34 WBC Hgb Hct MCV MCH RDW Lymph % (Auto) Cameron % (Auto) Seg Neuts % (Manual) Lymphocytes % (Manual) Monocytes % (Manual) Seg Neutrophils # Man Lymphocytes # (Manual) ABG pH ABG pO2 103.7 H ABG HCO3 32.7 H ABG O2 Saturation ABG Base Excess 7.1 H ABG Hemoglobin 10.8 L Oxyhemoglobin Sodium Potassium Chloride Carbon Dioxide BUN Creatinine Glucose POC Glucose 117 H 124 H Lactic Acid C-Reactive Protein Albumin Gqjyw-1-Nlgirgchq PEP Interpretation Urine WBC (Auto) Urine Creatinine Urine Total Protein 07/28/21 07/29/21 07/29/21 23:54 05:09 05:39 WBC Hgb Hct MCV MCH RDW Lymph % (Auto) Cameron % (Auto) Seg Neuts % (Manual) Lymphocytes % (Manual) Monocytes % (Manual) Seg Neutrophils # Man Lymphocytes # (Manual) ABG pH ABG pO2 ABG HCO3 ABG O2 Saturation ABG Base Excess ABG Hemoglobin Oxyhemoglobin Sodium Potassium Chloride Carbon Dioxide 32 H BUN 34 H Creatinine 2.1 H Glucose 124 H POC Glucose 107 H 120 H Lactic Acid C-Reactive Protein Albumin Semhp-2-Rafdrnmqm PEP Interpretation Urine WBC (Auto) Urine Creatinine Urine Total Protein 07/29/21 07/29/21 07/29/21 09:00 20:45 23:15 WBC Hgb Hct MCV MCH RDW Lymph % (Auto) Cameron % (Auto) Seg Neuts % (Manual) Lymphocytes % (Manual) Monocytes % (Manual) Seg Neutrophils # Man Lymphocytes # (Manual) ABG pH ABG pO2 131.5 H ABG HCO3 35.1 H 34.7 H ABG O2 Saturation ABG Base Excess 9.1 H 9.3 H ABG Hemoglobin 11.8 L 11.7 L Oxyhemoglobin Sodium Potassium Chloride Carbon Dioxide BUN Creatinine Glucose POC Glucose 114 H Lactic Acid C-Reactive Protein Albumin Yhjih-4-Dipssfdqy PEP Interpretation Urine WBC (Auto) Urine Creatinine Urine Total Protein 07/30/21 07/30/21 07/30/21 04:19 04:19 05:25 WBC Hgb 10.9 L Hct 32.6 L MCV 83 L MCH RDW 16.2 H Lymph % (Auto) Cameron % (Auto) Seg Neuts % (Manual) Lymphocytes % (Manual) Monocytes % (Manual) Seg Neutrophils # Man Lymphocytes # (Manual) ABG pH ABG pO2 ABG HCO3 ABG O2 Saturation ABG Base Excess ABG Hemoglobin Oxyhemoglobin Sodium Potassium Chloride Carbon Dioxide 33 H BUN 32 H Creatinine 2.2 H Glucose 108 H POC Glucose 109 H Lactic Acid C-Reactive Protein Albumin Zqgnp-7-Rxwtoybhb PEP Interpretation Urine WBC (Auto) Urine Creatinine Urine Total Protein 07/31/21 07/31/21 07/31/21 04:26 05:35 23:23 WBC Hgb Hct MCV MCH RDW Lymph % (Auto) Cameron % (Auto) Seg Neuts % (Manual) Lymphocytes % (Manual) Monocytes % (Manual) Seg Neutrophils # Man Lymphocytes # (Manual) ABG pH ABG pO2 ABG HCO3 ABG O2 Saturation ABG Base Excess ABG Hemoglobin Oxyhemoglobin Sodium Potassium Chloride Carbon Dioxide 32 H BUN 30 H Creatinine 2.1 H Glucose 108 H POC Glucose 124 H 116 H Lactic Acid C-Reactive Protein Albumin Kauvo-7-Unwnexbkg PEP Interpretation Urine WBC (Auto) Urine Creatinine Urine Total Protein 08/01/21 08/01/21 08/01/21 05:42 11:49 16:42 WBC Hgb Hct MCV MCH RDW Lymph % (Auto) Cameron % (Auto) Seg Neuts % (Manual) Lymphocytes % (Manual) Monocytes % (Manual) Seg Neutrophils # Man Lymphocytes # (Manual) ABG pH ABG pO2 ABG HCO3 ABG O2 Saturation ABG Base Excess ABG Hemoglobin Oxyhemoglobin Sodium Potassium Chloride Carbon Dioxide 33 H BUN 29 H Creatinine 2.0 H Glucose 106 H POC Glucose 111 H 65 L Lactic Acid C-Reactive Protein Albumin Ovriy-7-Jijpmovcd PEP Interpretation Urine WBC (Auto) Urine Creatinine Urine Total Protein 08/03/21 08/03/21 08/04/21 00:07 12:26 05:15 WBC Hgb 11.3 L Hct 34.2 L MCV MCH RDW 17.2 H Lymph % (Auto) Cameron % (Auto) Seg Neuts % (Manual) Lymphocytes % (Manual) Monocytes % (Manual) 10.0 H Seg Neutrophils # Man Lymphocytes # (Manual) ABG pH ABG pO2 ABG HCO3 ABG O2 Saturation ABG Base Excess ABG Hemoglobin Oxyhemoglobin Sodium Potassium Chloride Carbon Dioxide BUN Creatinine Glucose POC Glucose 111 H 115 H Lactic Acid C-Reactive Protein Albumin Jpjzu-1-Renxuakzh PEP Interpretation Urine WBC (Auto) Urine Creatinine Urine Total Protein 08/04/21 08/04/21 08/05/21 05:15 07:31 11:29 WBC Hgb Hct MCV MCH RDW Lymph % (Auto) Cameron % (Auto) Seg Neuts % (Manual) Lymphocytes % (Manual) Monocytes % (Manual) Seg Neutrophils # Man Lymphocytes # (Manual) ABG pH ABG pO2 ABG HCO3 ABG O2 Saturation ABG Base Excess ABG Hemoglobin Oxyhemoglobin Sodium Potassium Chloride Carbon Dioxide BUN 29 H Creatinine 1.9 H Glucose 104 H POC Glucose 109 H 131 H Lactic Acid C-Reactive Protein Albumin Aitwo-3-Hwekzmndt PEP Interpretation Urine WBC (Auto) Urine Creatinine Urine Total Protein 08/06/21 08/06/21 08/06/21 05:04 05:04 05:45 WBC Hgb 11.6 L Hct MCV MCH 27 L RDW 17.0 H Lymph % (Auto) 41.3 H Cameron % (Auto) 13.9 H Seg Neuts % (Manual) Lymphocytes % (Manual) Monocytes % (Manual) Seg Neutrophils # Man Lymphocytes # (Manual) ABG pH ABG pO2 ABG HCO3 ABG O2 Saturation ABG Base Excess ABG Hemoglobin Oxyhemoglobin Sodium Potassium Chloride Carbon Dioxide BUN 22 H Creatinine 1.5 H Glucose POC Glucose 106 H Lactic Acid C-Reactive Protein Albumin Qvflo-6-Fqymhwvat PEP Interpretation Urine WBC (Auto) Urine Creatinine Urine Total Protein 08/06/21 08/07/21 08/07/21 11:36 10:49 21:31 WBC Hgb Hct MCV MCH RDW Lymph % (Auto) Cameron % (Auto) Seg Neuts % (Manual) Lymphocytes % (Manual) Monocytes % (Manual) Seg Neutrophils # Man Lymphocytes # (Manual) ABG pH ABG pO2 ABG HCO3 ABG O2 Saturation ABG Base Excess ABG Hemoglobin Oxyhemoglobin Sodium Potassium Chloride Carbon Dioxide BUN 23 H Creatinine 1.5 H Glucose POC Glucose 109 H 112 H Lactic Acid C-Reactive Protein Albumin Grnbk-9-Iinfnnnmg PEP Interpretation Urine WBC (Auto) Urine Creatinine Urine Total Protein 08/08/21 08/08/21 08/08/21 05:44 09:18 09:18 WBC Hgb Hct 35.1 L MCV MCH RDW 17.3 H Lymph % (Auto) Cameron % (Auto) 11.8 H Seg Neuts % (Manual) Lymphocytes % (Manual) Monocytes % (Manual) Seg Neutrophils # Man Lymphocytes # (Manual) ABG pH ABG pO2 ABG HCO3 ABG O2 Saturation ABG Base Excess ABG Hemoglobin Oxyhemoglobin Sodium Potassium Chloride Carbon Dioxide BUN 22 H Creatinine 1.5 H Glucose 123 H POC Glucose 130 H Lactic Acid C-Reactive Protein Albumin Baexy-9-Qtgrrgayj PEP Interpretation Urine WBC (Auto) Urine Creatinine Urine Total Protein 08/08/21 17:29 WBC Hgb Hct MCV MCH RDW Lymph % (Auto) Cameron % (Auto) Seg Neuts % (Manual) Lymphocytes % (Manual) Monocytes % (Manual) Seg Neutrophils # Man Lymphocytes # (Manual) ABG pH ABG pO2 ABG HCO3 ABG O2 Saturation ABG Base Excess ABG Hemoglobin Oxyhemoglobin Sodium Potassium Chloride Carbon Dioxide BUN Creatinine Glucose POC Glucose 134 H Lactic Acid C-Reactive Protein Albumin Ztdth-0-Bfjpuxrbb PEP Interpretation Urine WBC (Auto) Urine Creatinine Urine Total Protein Chest x-ray: report reviewed, image reviewed Additional Studies: CHEST 1 VIEW 08/04/2021 9:45 AM INDICATION / CLINICAL INFORMATION: hypoxia. COMPARISON: 07/28/2021 FINDINGS: SUPPORT DEVICES: Tracheostomy remains in adequate position. HEART / MEDIASTINUM: No significant abnormality. LUNGS / PLEURA: No significant pulmonary or pleural abnormality. No pneumothorax. ADDITIONAL FINDINGS: No significant additional findings. IMPRESSION: 1. No acute findings. XR chest 1V ap 08/09/21 INDICATION / CLINICAL INFORMATION: intubation. COMPARISON: 08/04/2021 FINDINGS: SUPPORT DEVICES: Endotracheal tube projects over the midtrachea. HEART /PULMONARY VASCULATURE: Cardiac silhouette is upper normal in size. Pulmonary vasculature is largely obscured. LUNGS / PLEURA: There is interval development of multifocal mixed interstitial and airspace disease. No sizable pleural effusion. No pneumothorax. IMPRESSION: 1. Satisfactory position of endotracheal tube. 2. Diffuse pulmonary opacities, may reflect multifocal pneumonia or edema. CT neck wo con 08/08/21 INDICATION / CLINICAL INFORMATION: 61 years Male; Tracheal stenosis. TECHNIQUE: Contiguous thin cut axial images obtained through the neck. Sagittal and coronal reconstructions performed by the technologist. All CT scans at this location are performed using CT dose reduction for ALARA by means of automated exposure control. Motion artifact present. COMPARISON: None available. FINDINGS: Tracheostomy tube does not appear to enter the main tracheal airway. There is significant soft tissue between the inferior margin of the tracheostomy tube tip and the adjacent tracheal airway. Furthermore, posterior to the inferior margin of the tracheostomy tube, there is significant soft tissue which narrows the trachea to approximately 12 mm in a para AP dimension by 6 mm in a para transverse dimension. However, this is near the expected location of the cricopharyngeus muscle, which most likely contributes to the narrowing. This finding begins in the region of the subglottic larynx and is most prevalent at approximately 4.5 cm inferior to the vocal cords. MUCOSAL SPACE: Otherwise, the nasopharynx, oropharynx and vallecula, oral cavity and floor of mouth, hypopharynx, and larynx are grossly normal. LYMPH NODES: Minimally prominent nodes are seen in the level 5 regions bilat erally, as well as the superior mediastinum. SALIVARY GLANDS: Parotid, submandibular, and visualized sublingual glands are within normal limits. There is no evidence of sialolith. THYROID GLAND: Unremarkable. PARANASAL SINUSES: Minimal mucosal thickening in the ethmoids, as well as the inferior mastoids bilaterally. Small air-fluid levels noted in the inferior mastoids as well, ri ght greater than left. No coalescence of air cells seen. SPINE: Mild degenerative changes seen at C5-6. No significant canal stenosis or foraminal narrowing appreciated. VASCULAR STRUCTURES: Vascular structures are grossly normal in appearance. ADDITIONAL FINDINGS: Hazy increased interstitial markings are scattered throughout the upper lungs. IMPRESSION: 1. Mild position of the tracheostomy tube suggested, as described above. Abnormal soft tissue seen along the inferior aspect of the tracheostomy tube as described above. 2. 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 Allied health notes reviewed: RT
[2021-08-09] MEDS: IPRATROPIUM/ALBUTEROL SULFATE 3 ML AMPUL.NEB IH SCH ×3 (09:09→20:45)
[2021-08-09] MEDS: amLODIPine 5 MG TAB FEEDTUBE SCH (10:01)
[2021-08-09] MEDS: FAMOTIDINE 10 MG TAB FEEDTUBE SCH ×2 (10:02→22:22)
[2021-08-09] MEDS: HEPARIN 5,000 UNIT/1 ML VIAL SUB-Q SCH ×2 (10:03→21:21)
--- NOTE | 2021-08-09 16:01 | Consultation ---
History of Present Illness Consult date: 08/09/21 - History of present illness History of present illness: Surgery called to see 71-year-old male who had percutaneous tracheostomy placed on prior admission respiratory failure. Patient had a CT neck that was ordered after noticing that the patient was having audible stridor although he is able to maintain his airway and saturations. CT scan showed questionable tracheal stenosis. The patient says that he is able to breathe but feels like it has been more of a strain for about a week after he was transferred from the ICU to the floor. He says that respiratory has been unable to suction down his tracheostomy over the last few days. Past History Past Medical History: diabetes, other (cardiomyopathy, respiratory failure) Past Surgical History: Other (Trach, peg) Social history: denies: smoking Family history: diabetes Medications and Allergies Allergies Allergy/AdvReac Type Severity Reaction Status Date / Time No Known Allergies Allergy Verified 07/25/21 11:02 Home Medications Medication Instructions Recorded Confirmed Last Taken Type No Known Home Medications [No 03/11/21 08/02/21 Unknown History Reported Home Medications] Apixaban [Eliquis] 5 mg FEEDTUBE Q12HR 30 Days #60 05/02/21 08/02/21 Unknown Rx tablet Doxazosin [Cardura] 1 mg FEEDTUBE BID 30 Days #60 05/02/21 08/02/21 Unknown Rx tablet Famotidine [Pepcid] 20 mg FEEDTUBE BID 30 Days #60 05/02/21 08/02/21 Unknown Rx tablet Glycopyrrolate 2 mg PO TID 30 Days #90 tablet 05/02/21 08/02/21 Unknown Rx Insulin Glargine [Lantus VIAL] 18 units SUB-Q QHS 30 Days #2 vial 05/02/21 08/02/21 Unknown Rx Metoprolol [Lopressor TAB] 12.5 mg FEEDTUBE BID 30 Days #60 05/02/21 08/02/21 Unknown Rx tablet amLODIPine 10 mg FEEDTUBE DAILY 30 Days #30 05/02/21 08/02/21 Unknown Rx tablet cephALEXin [Keflex] 500 mg PO Q8HR 2 Days #6 cap 05/02/21 08/02/21 Unknown Rx hydrALAZINE [Apresoline TAB] 50 mg FEEDTUBE Q8HR 30 Days #90 05/02/21 08/02/21 Unknown Rx tablet Active Meds: Active Medications Acetaminophen (Acetaminophen 325 Mg Tab) 650 mg PO Q4H PRN PRN Reason: Pain MILD(1-3)/Fever >100.5/RAYO Last Admin: 08/09/21 05:53 Dose: 650 mg Albuterol/Ipratropium (Ipratropium/Albuterol Sulfate 3 Ml Ampul.Neb) 1 ampul IH TIDRT [facility] Last Admin: 08/09/21 09:09 Dose: 1 ampul Amlodipine Besylate (Amlodipine 5 Mg Tab) 10 mg FEEDTUBE QDAY [facility] Last Admin: 08/09/21 10:01 Dose: 10 mg Lipase/Protease/Amylase (Lipase 10,500/Protease 25,000/Amylase 43,750 (Units) Dr Zambrano) 1 each FEEDTUBE PRN PRN PRN Reason: For Clogged Feeding Tube Dextrose (Dextrose 50% In Water (25gm) 50 Ml Syringe) 50 ml IV Q30MIN PRN; Protocol PRN Reason: Hypoglycemia Famotidine (Famotidine 10 Mg Tab) 10 mg FEEDTUBE BID [facility] Last Admin: 08/09/21 10:02 Dose: 10 mg Heparin Sodium (Porcine) (Heparin 5,000 Unit/1 Ml Vial) 5,000 unit SUB-Q Q12HR [facility] Last Admin: 08/09/21 10:03 Dose: 5,000 unit Hydralazine HCl (Hydralazine 25 Mg Tab) 25 mg PO Q8HR [facility] Last Admin: 08/09/21 14:10 Dose: 25 mg Hydralazine HCl (Hydralazine 20 Mg/1 Ml Inj) 15 mg IV Q6H PRN PRN Reason: Blood Pressure Insulin Human Regular (Insulin Regular, Human 100 Units/1 Ml) 0 units SUB-Q Q6HR [facility]; Protocol Last Admin: 08/09/21 12:12 Dose: Not Given Labetalol HCl (Labetalol 100 Mg Tab) 100 mg FEEDTUBE BID [facility] Last Admin: 08/09/21 10:02 Dose: 100 mg Ondansetron HCl (Ondansetron 4 Mg/2 Ml Inj) 4 mg IV Q8H PRN PRN Reason: Nausea And Vomiting Oxycodone/Acetaminophen (Oxycodone /Acetaminophen 5-325mg Tab) 1 tab PO Q6H PRN PRN Reason: Pain, Moderate (4-6) Last Admin: 08/05/21 05:53 Dose: 1 tab Polyethylene Glycol (Polyethylene Glycol 3350 17 Gm Powder) 17 gm PO QDAY PRN PRN Reason: Constipation Senna/Docusate Sodium (Sennosides/Docusate Sodium 8.6/50 Mg Tab) 1 tab PO QHS [facility] Last Admin: 08/08/21 21:28 Dose: 1 tab Simple Syrup (Simple Syrup 15 Ml) 15 ml FEEDTUBE PRN PRN PRN Reason: Hypoglycemia Simple Syrup (Simple Syrup 15 Ml) 30 ml FEEDTUBE PRN PRN PRN Reason: Hypoglycemia Sodium Bicarbonate (Sodium Bicarbonate 325 Mg Tab) 325 mg FEEDTUBE PRN PRN PRN Reason: For Clogged Feeding Tube Sodium Chloride (Sodium Chloride 0.9% 10 Ml Flush Syringe) 10 ml IV BID [facility] Last Admin: 08/09/21 10:04 Dose: 10 ml Sodium Chloride (Sodium Chloride 0.9% 10 Ml Flush Syringe) 10 ml IV PRN PRN PRN Reason: LINE FLUSH Last Admin: 07/26/21 00:08 Dose: 10 ml Review of Systems All systems: negative - Respiratory shortness of breath, dyspnea on exertion Exam Vital Signs Pulse Resp Pulse Ox 94 H 19 100 07/25/21 10:38 07/25/21 10:38 07/25/21 10:38 - General physical appearance Positive: well developed, no distress, no pain, other (able to phonate well) - Eyes Negative: icteric - ENT Positive: no hearing loss - Respiratory Positive: normal expansion, other (audible stridor around tracheostomy, trach in place with O2) - Cardiovascular Heart Sounds: Present: S1 & S2 Results - Labs 08/08/21 09:18 08/08/21 09:18 Abnormal lab results 08/08/21 08/09/21 Range/Units 17:29 11:51 POC Glucose 134 H 116 H (70-105) mg/dL Assessment and Plan 61-year-old male status post tracheostomy for respiratory failure. Afebrile and stable. CT scan suggestive of possible tracheal stenosis or tracheostomy tube and false passage. Patient currently able to maintain airway. Recommend further anatomical evaluation of airway with bronchoscopy. If bronchoscopy shows tracheal stenosis or other tracheal deformity recommend re ferring to ENT surgeon for further work-up and treatment. Continue supportive care. No general surgery intervention planned at this time. I discussed this with Dr. Altamirano.
--- NOTE | 2021-08-09 16:30 | Event Note ---
Date: 08/09/21 Patient developed worsening stridor and appeared to have some shortness of breath but vitally stable. CT neck obtained on prior demonstrates tissues in posteroinferior aspect of tracheostomy tube. Discussed case with Dr. Cespedes, Dr Olivier, and Dr. Whiting. Pulm planning for bronchoscopy. Attempting to transfer to [place]. Awaiting call back. Immediately after transport to ICU, patient developed significant respiratory distress. Desaturated to sat of 10%. RT at bedside, initiated bag mask ventilation. Trach appears to be nonfunctional based despite multiple attempts to utilize. Discussed case with anesthesia who emergently intubated patient. Despite difficulty obtaining airway, patient successfully intubated with 6.0 ETT. Vent/sedation orders placed. Post intubation sat 96%.
[2021-08-09] MEDS ORDERED: LORazepam 2 MG/ML VIAL IV ONE (16:54)
[2021-08-09] MEDS ORDERED: EPINEPHrine RACEMIC 2.25% 0.5ML NEBU IH ONE ×2 (16:55→18:49)
[2021-08-09] MEDS ORDERED: fentaNYL 100 MCG/2 ML INJ IV PRN (17:03)
[2021-08-09] MEDS ORDERED: SUCCINYLCHOLINE CHLORIDE 200 MG/10 ML INJ MDV ONE (17:10)
[2021-08-09] MEDS: fentaNYL DRIP Premix 2,000 MCG/100 ML BAG IV SCH (17:25)
--- NOTE | 2021-08-09 17:29 | Event Note ---
Date: 08/09/21 (Intubation) Called to intubate patient. Trach examined in not in place. Scan reviewed and trach not in place. 17:14 Propofol 110mg + 60mg Glidescope X 1 with Grade 1 view. 6.5 OETT placed with resistance. ETT with bloody fluid and suctioned. +BBS/CO2 Propofol 100mg given VSS CXR pending
[2021-08-09] MEDS ORDERED: LACTATED RINGERS 1,000 ML ONE (17:40)
--- NOTE | 2021-08-09 17:52 | XRay Report ---
XR chest 1V ap INDICATION / CLINICAL INFORMATION: intubation. COMPARISON: 08/04/2021 FINDINGS: SUPPORT DEVICES: Endotracheal tube projects over the midtrachea. HEART /PULMONARY VASCULATURE: Cardiac silhouette is upper normal in size. Pulmonary vasculature is la rgely obscured. LUNGS / PLEURA: There is interval development of multifocal mixed interstitial and airspace disease. No sizable pleural effusion. No pneumothorax. IMPRESSION: 1. Satisfactory position of endotracheal tube. 2. Diffuse pulmonary opacities, may reflect multifocal pneumonia or edema. Signer Name: Jaya Fernandes MD Signed: 08/09/2021 5:48 PM Workstation Name: [id number]
[2021-08-09] MEDS ORDERED: MINERAL OIL/PETROLATUM, WHITE OPHTH OINT 3.5 GM OU PRN (18:00)
[2021-08-09] MEDS ORDERED: LIP THERAPY VASELINE TP PRN (18:00)
--- NOTE | 2021-08-09 18:17 | Post Operative Note ---
Pre-op diagnosis: Respiratory failure Post-op diagnosis: same Procedure: CONSENT: The procedure was performed emergently and the permission was implied because of the emergent nature. PROCEDURE SUMMARY: A time out was performed. My hands were washed immediately prior to the procedure. I wore a surgical cap, mask with protective eyewear, full gown and sterile gloves throughout the procedure. The patient was placed in Trendelenburg position. LEFT groin region was prepped using chlorhexidine scrub and draped in sterile fashion using a full drape and sterile probe cover and sterile gel employed. Femoral vein was identified using the ultrasound. Anesthesia was achieved over the vein using 1% lidocaine. Using real-time out of plane guidance, the introducer needle was inserted into the left femoral vein under direct ultrasound visualization. Venous blood was withdrawn. The syringe was removed and a guidewire was advanced into the introducer needle. The guidewire was visualized in the Internal Jugular Vein by ultrasound. A small incision was made at the skin surface with a scalpel and the introducer needle was exchanged for a dilator over the guidewire. After appropriate dilation was obtained, the dilator was exchanged over the wire for cvc. The patient tolerated the procedure without any hemodynamic compromise. At time of procedure completion, all ports aspirated and flushed properly. Post-procedure chest x-ray is pending at this time. Estimated blood loss is < 5 cc. Surgeon: RAFAEL DOMINGUEZ Estimated blood loss: minimal
--- NOTE | 2021-08-09 19:18 | Discharge Summary ---
Providers - Providers Date of Admission: 07/25/21 16:33 Date of discharge: 08/09/21 Attending physician: RAFAEL DOMINGUEZ MD 07/25/21 11:46 Consult to Physician [CONS] Stat Comment: Dr. Xiao saw the patient/ graciela Consulting Provider: JAMAAL ADDISON Physician Instructions: Reason For Exam: pt on ventilator; recs for sedation 07/26/21 11:47 Consult to Dietitian/Nutrition [CONS] Routine Physician Instructions: Reason For Exam: Reason for Consult: Write/Manage Tube Feeding 07/26/21 11:49 Consult to Dietitian/Nutrition [CONS] Routine Physician Instructions: Reason For Exam: Reason for Consult: Write/Manage Tube Feeding 07/27/21 14:44 Consult to Physician [CONS] Routine Comment: called office left message/ jaky Consulting Provider: VEE ADAMS Physician Instructions: Reason For Exam: Pneumonia; Respiratory failure ? MRSA 07/27/21 14:46 Consult to Physician [CONS] Routine Comment: Consulting Provider: NATA CHASE Physician Instructions: called office spoke to entry level receptionist / jaky Reason For Exam: MONIK 07/30/21 14:23 Speech Therapy Evaluation and Treat [CONS] Routine Reason For Exam: swallow eval 07/31/21 08:39 Occupational Therapy Evaluate and Treat [CONS] Routine Comment: Reason For Exam: trach / peg, rehab Physical Therapy Evaluation and Treat [CONS] Routine Comment: Reason For Exam: trach / peg, rehab 07/31/21 17:51 Speech Therapy Eval for Passy-Snehal Valve [CONS] Routine Reason For Exam: PMV trials as tolerated please 08/06/21 13:21 Speech Therapy Eval for Passy-Snehal Valve [CONS] Routine Reason For Exam: trach for possible decannulation 08/09/21 14:28 Consult to Physician [CONS] Routine Comment: Consulting Provider: ABDI AGARWAL Physician Instructions: Reason For Exam: malpositioned trach 08/09/21 18:14 Consult to Physician [CONS] Routine Comment: Consulting Provider: TORRI SALINAS Physician Instructions: Reason For Exam: trach malfunction Primary care physician: [employer] Hospitalization Reason for admission: shortness of breath. Condition: Stable Hospital course: Assessment and plan: This is a 61-year-old male who is a resident of a assisted facility with chronic hypoxic respiratory failure s/p trach with vent dependency, recent COVID-19 infection, ischemic cardiomyopathy, type 2 diabetes mellitus, obesity who presented to the emergency department on 07/25 via EMS with chief complaints of respiratory distress from his longterm. In the emergency department patient was placed on the ventilator as he was tachypneic, dyspneic and did not improve after suctioning. Work-up in the emergency department revealed lactic acidosis, leukocytosis and CXR revealed possible retrocardiac pneumonia and started on antibiotics for HAP. Patient was admitted to the hospitalist service with consults to [facility] with acute on chronic respiratory failure and HAP. Hospital course to date: 07/26: Stopped Solu-Medrol, given For hyperkalemia, started on tube feedings. Remains on fentanyl and Mucomyst 07/27: Renal indices increased, patient did receive Lasix x1 yesterday. Nephrology was consulted. Urine lites and bilateral renal ultrasound pending. Infectious disease consulted. Bladder scan performed and Good catheter placed. COVID 19 PCR negative 07/28: No acute events reported overnight, worsening renal function-nephrology is on the case. Continue with cefepime per ID. Vent changes per [facility]. 07/29: Slight improvement to renal function tests, remains on assist control. No acute events reported overnight. 07/30: Patient has been on T-piece all night. Renal function continues slightly worse however patient is still creating urine. Possible transfer to floor or imcu. Per pt he is requesting transfer to another longterm if needed on discharge. 07/31: IMCU currently. Resting comfortably. no complaints. ST/PT eval. Working with CM for placement back to LTAC. ID okay with discontinuing antibiotics. Discussed patient case with pulmonology as well Dr. Azul 08/01: Patient still requiring 8 L of O2 via T-piece. Case management working for possible placement at LTAC. ID discontinue antibiotics. Continue PMV trials as tolerated. 08/02/2021 Patient still requiring high flow oxygen 08/03/2021. Patient still requiring 8 L of O2 via T-piece. Continue PMV trials as tolerated. 08/04/2021. Patient still requiring large amounts of oxygen. Patient currently with 10 L O2 FiO2 40%. Continue to wean O2 as tolerated. Recheck chest x-ray 08/05/2021. Patient still requiring large amounts of oxygen. Patient currently with 10 L O2 FiO2 40%. Continue to wean O2 as tolerated. Chest x-ray remains negative. Patient appears to have chronic kidney disease with renal function remaining stable at this time, hemoglobin 11.2 creatinine is currently 1.9, slight improvement, felt to be in stage IIIb chronic kidney disease for now need s ongoing monitoring and follow-up 08/06/2021. Patient with T-piece requiring 8 L of O2. Creatinine is stable at 1.5. Nephrology reports patient likely has stage IIIb chronic kidney disease for now needs ongoing monitoring and follow-up 08/07/2021. Patient with T-piece 8 L O2 with FiO2 of 35%. I discussed the case with pulmonary who would like to get CT of neck to assess the anatomy. PMV tr ials per pulmonary. Patient also with nonoliguric acute kidney injury. Hep B/C negative, ANCA neg, C3/C4 wnl, PUMA neg, dsDNA neg. Urine eos negative; UPCR 280mg. Nephrology following. 08/08/2021: Awaiting completion of CT neck. dispo home with hhc/DME vs back to [facility]. Will likely need outpatient ENT to decannulate [employer] for PMV trials. 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 Will need ENT OP for decannulation of trach. Discharge back to [facility] facility [facility] for [facility]. Advised to follow up with primary and ENT when possible. 08/10/2021 Brief Hospital summary. Patient was admitted on 07/25 from [facility] for respiratory distress. Respiratory distress at the time was attributable to p neumonia. Patient during this admission had also developed CHF exacerbation due to volume overload. Fluid was removed via diuresis with Lasix and this subsequently led to acute kidney injury. Lasix was discontinued and kidney function subsequently improved. Patient was about to be discharged on as he looked stable on T-piece 8 L however he subsequently developed respiratory distress in the afternoon of 08/09. O2 saturation 98% and pulse rate 95 bedside. RT was administering breathing treatment. Further examination revealed that tracheostomy tube was effectively nonfunctional and patient was breathing around trach. Upon review of CT neck imaging it appears as though there is tissue in the inferior aspect of the trach tube. He was transmitted to our CCU for closer observation. Upon arriving to the CCU patient suddenly decompensated developed respiratory stridor. Sats began to precipitously drop and patient was immediately bagged. Anesthesia called for difficult airway. 6.50 ETT placed. Follow-up chest x-ray revealed appropriate placement of ET tube and aspiration pneumonitis. Central line placed as access proved to be difficult for patient. Call placed to [facility] Dr.Marissa Russo. She accepted the patient. Discussed the case as well with . patient to be transferred to [facility] today. Assessment and plan: This is a 61 year old male from a SNF with chronic hypoxic resp failure s/p trach, recent COVID 19 infection, ischemic cardiomyopathy IDDM, obesity admitted with acute on chronic resp failure, HAP, hyperkalemia, and lactic acidosis. Neuro: NAD -p.o. oxycodone prn -Reorientation as needed -Maintain sleep-wake cycle -CT head continued mild microvascular angiopathy without clear CT evidence of acute intercranial hemorrhage Cardiac: h/o HTN -Cardiology consulted, appreciate recommendations -Blood pressure monitoring per protocol -03/09/21 Echocardiogram LVEF 60-65% -Amlodipine, Labetalol, hydralazine PO (titrate as tolerated) -Avoid ACEi or ARB in setting of MONIK Respiratory: Acute on chronic hypercapnic respiratory failure, s/p trach, Nonfu nctional trach, s/p intuation on 08/09, aspiration pneumonitis -[facility] consulted, appreciate recommendations -T piece 35 % Fio2 -See RT notes for titration -Pulm hygiene -SPO2 monitoring -08/09 vent settings: -patient reintubated on 08/09 due to respiratory distress. Suspect trach is nonfucntional. difficult intubation. 6.5 OETT. - cxr no pneumothorax, bilateral pneumonitis from likely aspiration. -aggressive suctioning. GI: MO, moderate protein calorie malnutrition -24 hours + 398 mL -PPI -NTR consulted for tube feedings -s/p PEG tube in place -BR: Senokat S : Acute kidney injury (improving), h/o urinary retention -Nephrology consulted, appreciate recommendations -Renal ultrasound shows echogenic kidneys which can be seen with medical renal disease, no hydronephrosis -FeNa indicate prerenal -Monitor intake and output -Renally dose medications -Avoid nephrotoxic medications -Good catheter placed for urinary retention -Trend BMP ID: HAP (POA) -Infectious disease consulted, appreciate recommendations -COVID PCR (-) -MRSA PCR positive -07/25 BC x2 NGTD, UC NGTD -Antibiotic therapy with cefepime -f/u blood culture -Monitor WBC and temperature curve Endo: h/o DM -Avoid hypoglycemia -SSI -Accu-Cheks q. 6 Heme: Leukocytosis -Heparin subq -Trend CBC -Transfuse hemoglobin less than 7 -Monitor for signs of bleeding -SCDs to BLE while in bed Disposition: ADMITTED INPATIENT Final Discharge Diagnosis (Prints w/discharge instructions): acute hypoxic respiratory failure, tracheal stenosis Time spent for discharge: 35 Core Measure Documentation - Palliative Care Palliative Care/ Comfort Measures: Not Applicable - Core Measures Any of the following diagnoses?: none Exam - Physical Exam Narrative exam: Physical Exam: VITAL SIGNS: Reviewed. GENERAL: The patient appears normally developed, Vital signs as documented. sedated and intubated Elevated BMI HEAD: No signs of head trauma. EYES: Pupils are equal. Extraocular motions intact. EARS: Hearing grossly intact. MOUTH: Oropharynx is normal. NECK: T-piece, trach with no air movement, subsequently removed.. No adenopathy, no JVD. CHEST: stridor during rapid response. rhochi heard on lung exam. CARDIAC: Regular rate and rhythm. S1 and S2, without murmurs, gallops, or rubs. VASCULAR: No Edema. Peripheral pulses normal and equal in all extremities. ABDOMEN: PEG tube. Soft, non tender and non distended. No rebound or guarding, and no masses palpated. Bowel Sounds normal. MUSCULOSKELETAL: Good range of motion of all major joints. Extremities without clubbing, cyanosis or edema. NEUROLOGIC EXAM: Alert and oriented x 4. no focal sensory or strength deficits. PSYCHIATRIC: Mood normal. SKIN: detail exam as documented in skin assessment - Constitutional Vitals: Temp Pulse Resp BP Pulse Ox 98.9 F 112 H 26 H 91/56 97 08/09/21 16:00 08/09/21 18:00 08/09/21 18:00 08/09/21 18:00 08/09/21 18:00 Plan Follow up with: PRIMARY CAREMD [Primary Care Provider] - 3-5 Days
[2021-08-09 19:57] LABS: ABG HCO3 27.9 mmol/L (20.0-26.0); ABG PCO2 58.8 mm Hg; ABG PH 7.296 pH Units (7.350-7.450); ABG PO2 78.8 mm Hg (80.0-90.0)
[2021-08-09 19:58] LABS: ABG Base Excess 0.4 mmol/L (-2.0-3.0); ABG Methemoglobin 0.3 % (0.0-1.5); ABG Oxygen Saturation 94.2 % (95.0-99.0)
[2021-08-09] MEDS: PIPERACIL/TAZOBACTA 4.5/NS 100 4.5 GM/100 ML VIAL IV SCH (21:21)
[2021-08-09] MEDS: SENNOSIDES/DOCUSATE SODIUM 8.6/50 MG TAB PO SCH (22:23)
[2021-08-10] MEDS: INSULIN REGULAR, HUMAN 100 UNITS/1 ML SUB-Q SCH ×2 (01:10→06:04)
[2021-08-10] MEDS: fentaNYL DRIP Premix 2,000 MCG/100 ML BAG IV SCH ×2 (02:44→08:34)
[2021-08-10] MEDS: PIPERACIL/TAZOBACTA 4.5/NS 100 4.5 GM/100 ML VIAL IV SCH (03:52)
[2021-08-10 05:52] LABS: Basophils % (Auto) 0.4 % (0.0-1.8); Eosinophils # (Auto) 0.1 K/mm3 (0.0-0.4); Eosinophils % (Auto) 1.1 % (0.0-4.3); Hemoglobin 10.9 gm/dl (11.8-15.2); Lymphocytes # (Auto) 2.2 K/mm3 (1.2-5.4); Mean Corpuscular HGB Conc 32 % (32-34); Mean Corpuscular Volume 85 fl (84-94); Monocytes # (Auto) 1.2 K/mm3 (0.0-0.8); Monocytes % (Auto) 10.2 % (0.0-7.3); Platelet Count 262 K/mm3 (140-440)
[2021-08-10] MEDS: hydrALAZINE 25 MG TAB PO SCH (06:02)
[2021-08-10 06:21] LABS: Albumin 3.6 g/dL (3.9-5); Calcium 9.4 mg/dL (8.4-10.2)
[2021-08-10] MEDS: IPRATROPIUM/ALBUTEROL SULFATE 3 ML AMPUL.NEB IH SCH (07:35)
[2021-08-10 09:43] VITALS: BP 111/64
--- NOTE | 2021-08-10 09:47 | XRay Report ---
CHEST 1 VIEW 08/10/2021 7:45 AM INDICATION / CLINICAL INFORMATION: follow up respiratory failure. COMPARISON: One view of the chest from 08/09/2021. FINDINGS: SUPPORT DEVICES: Unchanged. HEART / MEDIASTINUM: Stable. LUNGS / PLEURA: Bilateral airspace opacities have significantly improved. There are residual predomin antly bibasilar opacities. No significant pleural effusion. No pneumothorax. ADDITIONAL FINDINGS: No significant additional findings. IMPRESSION: Significantly improved aeration of the lungs compared to 08/09/2021. Signer Name: Sergio Gutierrez MD Signed: 08/10/2021 9:42 AM Workstation Name: [id number]
== END 2021-08-10 09:00 | disposition short-term general hospital (02) | DRG 870 ==
LOC: ED 10:32 → CC1 16:33 → IMCU 07-30 18:35 → 3A 07-31 17:49 → CC1 08-09 16:48
PROVIDERS: ADMIT Internal Medicine; ATTEND Internal Medicine
PROC: 5A1955Z Respiratory Ventilation, Greater than 96 Consecutive Hours (ICD-10-PCS; principal; 2021-07-25)
PROC: 4A033R1 Measurement of Arterial Saturation, Peripheral, Percutaneous Approach (ICD-10-PCS; 2021-07-25)
PROC: 05HY33Z Insertion of Infusion Device into Upper Vein, Percutaneous Approach (ICD-10-PCS; 2021-08-09)
PROC: B544ZZA Ultrasonography of Left Jugular Veins, Guidance (ICD-10-PCS; 2021-08-09)
DX: A41.9 Sepsis, unspecified organism (principal); J96.21 Acute and chronic respiratory failure with hypoxia; J96.22 Acute and chronic respiratory failure with hypercapnia; J69.0 Pneumonitis due to inhalation of food and vomit; E87.1 Hypo-osmolality and hyponatremia; E44.0 Moderate protein-calorie malnutrition; N17.9 Acute kidney failure, unspecified; R33.8 Other retention of urine; Z20.822 Contact with and (suspected) exposure to COVID-19; E11.9 Type 2 diabetes mellitus without complications; I25.5 Ischemic cardiomyopathy; Z74.01 Bed confinement status; Z93.0 Tracheostomy status; R13.12 Dysphagia, oropharyngeal phase; R65.20 Severe sepsis without septic shock; I11.0 Hypertensive heart disease with heart failure; I50.9 Heart failure, unspecified; E87.5 Hyperkalemia; E66.9 Obesity, unspecified; J39.8 Other specified diseases of upper respiratory tract; Z68.32 Body mass index [BMI] 32.0-32.9, adult; Z79.4 Long term (current) use of insulin; Z83.3 Family history of diabetes mellitus
CPT/HCPCS: 36415; 36600; 70450; 70490; 71045; 76770; 80048; 80053; 80074; 81001; 82140; 82570; 82803; 82962; 83036; 83735; 84100; 84132; 84145; 84156; 84165; 84300; 84484; 85007; 85025; 85027; 86021; 86038; 86140; 86160; 86225; 87040; 87070; 87076; 87086; 87186; 87205; 87641; 89050; 93005; 94002; 94003; 94640; 94760; G0378; J3490; J0330; J0360; J0692; J0696; J1644; J1940; J2060; J2543; J2704; J2930; J3010; J3370; J7030; J7040; J7120; U0003